=== PATIENT | male | born 1960 | race American Indian/Alaskan Native ===

== ENCOUNTER 2017-07-22 16:11 | Emergency (ER) | payer OTHER ==
[~2017-07-22] VITALS: Ht 170.2 cm; Wt 77.1 kg
[~2017-07-22 16:11] MED LIST: ATIVAN1 MG PO
[2017-07-22] MEDS ORDERED: LIPITOR20 MG PO (16:42)
[2017-07-22] MEDS ORDERED: AMBIEN5 MG PO (16:42)
[2017-07-22] MEDS ORDERED: KEPPRA500 MG PO (16:42)
[2017-07-22] MEDS ORDERED: NORCO 5-325 TA1 EACH PO (16:44)
[2017-07-22] MEDS ORDERED: ZYPREXA10 M1 IM (18:10)
[2017-07-22] MEDS ORDERED: AUGMENTIN 875-1 EACH PO (19:28)
[2017-08-17] MEDS ORDERED: LEVETIRACETAM500 MG PO (10:48)
== END 2017-07-22 19:40 | disposition home or self-care (01) ==
LOC: ED 16:11
DX: R51 Headache (principal); J06.9 Acute upper respiratory infection, unspecified; F17.200 Nicotine dependence, unspecified, uncomplicated; Z79.899 Other long term (current) drug therapy
CPT/HCPCS: 71045; 80053; 81001; 83605; 85025; 87040; 99283

== ENCOUNTER → 2017-07-24 | Emergency (ER) | payer OTHER ==
[~2017-07-24] VITALS: Ht 170.2 cm; Wt 77.1 kg
[~2017-07-24] MED LIST changes: +AMBIEN5 MG PO; +AUGMENTIN 875-1 EACH PO; +CEPHALEXIN500 MG PO; +KEPPRA500 MG PO; +LEVAQUIN750 MG PO; +LEVETIRACETAM500 MG PO; +LIPITOR20 MG PO; +NORCO 5-325 TA1 EACH PO; +ZYPREXA10 M1 IM
== END ==
LOC: ED 10:06
DX: Z09 Encounter for follow-up examination after completed treatment for conditions other than malignant neoplasm (principal); F17.200 Nicotine dependence, unspecified, uncomplicated; Z79.2 Long term (current) use of antibiotics; Z79.899 Other long term (current) drug therapy
CPT/HCPCS: 99282

== ENCOUNTER 2017-08-09 18:37 | Emergency (ER) | payer OTHER ==
[~2017-08-09] VITALS: Ht 170.2 cm; Wt 77.1 kg
[~2017-08-09 18:37] MED LIST changes: -CEPHALEXIN500 MG PO; -LEVAQUIN750 MG PO; -LEVETIRACETAM500 MG PO
--- NOTE | 2017-08-09 22:51 | EKG ---
[facility] [address] [place] [address] Signed Sinus bradycardia Right bundle branch block Abnormal ECG When compared with ECG of 06-SEP-2016 09:51, Nonspecific T wave abnormality, improved in Inferior leads T wave inversion no longer evident in Lateral leads Confirmed by HAWK CREWS MD ([id number]) on 08/09/2017 10:51:10 PM Electronically Signed By: HAWK CREWS MD 08/09/17 2251 PATIENT NAME: ARTEMIO GREEN Electrocardiogram DATE OF : 64 PHYSICIAN: HAWK CREWS MD REPORT #: [id number] REPORT IS CONFIDENTIAL AND NOT TO BE RELEASED WITHOUT AUTHORIZATION
[2017-08-17] MEDS ORDERED: LEVETIRACETAM500 MG PO (10:48)
== END 2017-08-09 21:40 | disposition short-term general hospital (02) ==
LOC: ED 18:37
DX: G97.82 Other postprocedural complications and disorders of nervous system (principal); G40.909 Epilepsy, unspecified, not intractable, without status epilepticus; F17.200 Nicotine dependence, unspecified, uncomplicated; Z79.899 Other long term (current) drug therapy
CPT/HCPCS: 70450; 71045; 80053; 81001; 85025; 85610; 85730; 93005; 93010; 99285; G0480

== ENCOUNTER 2017-08-17 10:27 | Emergency (ER) | payer OTHER ==
[~2017-08-17] VITALS: Ht 170.2 cm; Wt 81.7 kg
[2017-08-17] MEDS ORDERED: LEVETIRACETAM500 MG PO ×2 (10:48)
[2017-08-17] MEDS ORDERED: CEPHALEXIN500 MG PO (23:13)
[2017-08-17] MEDS ORDERED: LEVAQUIN750 MG PO (23:13)
== END 2017-08-17 11:56 | disposition home or self-care (01) ==
LOC: ED 10:27
DX: R51 Headache (principal); F17.200 Nicotine dependence, unspecified, uncomplicated; Z98.890 Other specified postprocedural states; Z59.0 Homelessness; Z79.899 Other long term (current) drug therapy
CPT/HCPCS: 70450; 99284

== ENCOUNTER 2017-08-17 20:40 | Emergency (ER) | payer OTHER ==
[~2017-08-17] VITALS: Ht 170.2 cm; Wt 81.7 kg
[~2017-08-17 20:40] MED LIST changes: +LEVETIRACETAM500 MG PO
[2017-08-17] MEDS ORDERED: LEVAQUIN750 MG PO (23:13)
[2017-08-17] MEDS ORDERED: CEPHALEXIN500 MG PO (23:13)
== END 2017-08-17 23:57 | disposition home or self-care (01) ==
LOC: ED 20:40
DX: T81.4XXA Infection following a procedure, initial encounter (principal); F17.200 Nicotine dependence, unspecified, uncomplicated; Z79.899 Other long term (current) drug therapy; Z98.890 Other specified postprocedural states
CPT/HCPCS: 70450; 80053; 85025; 87070; 87077; 87186; 96374; 99284; J2060

== ENCOUNTER 2017-08-21 11:11 | Emergency (ER) | payer OTHER ==
[~2017-08-21] VITALS: Ht 170.2 cm; Wt 81.7 kg
[~2017-08-21 11:11] MED LIST changes: +CEPHALEXIN500 MG PO; +LEVAQUIN750 MG PO
== END 2017-08-21 11:45 | disposition home or self-care (01) ==
LOC: ED 11:11
DX: R51 Headache (principal); G89.29 Other chronic pain; W18.30XA Fall on same level, unspecified, initial encounter; F17.200 Nicotine dependence, unspecified, uncomplicated; Z79.2 Long term (current) use of antibiotics; Z79.899 Other long term (current) drug therapy
CPT/HCPCS: 99283

== ENCOUNTER 2017-08-31 13:37 | Emergency (ER) | payer OTHER | END 2017-08-31 15:48 | disposition short-term general hospital (02) | LOC: ED 13:37 | DX: S12.500A Unspecified displaced fracture of sixth cervical vertebra, initial encounter for closed fracture (principal); S12.600A Unspecified displaced fracture of seventh cervical vertebra, initial encounter for closed fracture; S22.019A Unspecified fracture of first thoracic vertebra, initial encounter for closed fracture; S22.029A Unspecified fracture of second thoracic vertebra, initial encounter for closed fracture; S42.202A Unspecified fracture of upper end of left humerus, initial encounter for closed fracture; S22.43XA Multiple fractures of ribs, bilateral, initial encounter for closed fracture; R09.02 Hypoxemia; F17.200 Nicotine dependence, unspecified, uncomplicated; Z79.899 Other long term (current) drug therapy; V03.90XA Pedestrian on foot injured in collision with car, pick-up truck or van, unspecified whether traffic or nontraffic accident, initial encounter | CPT/HCPCS: 31500; 31720; 70450; 71045; 72125; 72170; 73030; 80053; 82150; 82550; 82803; 83690; 85025; 86850; 86900; 86901; 90471; 90715; 94002; 96361; 96374; 96375; 96376; 99291; G0390; G0480; J2250; J2405; J2704; J3010; J3411; J7030; J7120 ==

== ENCOUNTER 2017-12-10 16:46 | Emergency (ER) | payer OTHER ==
[~2017-12-10] VITALS: Ht 172.7 cm; Wt 63.5 kg
--- OUTSIDE RECORDS SUMMARY | ~2017-12-10 | XMS | Encounter Summary ---
Demographics + + + | Address | [address] | | | [place] [address] | + + + | Home Phone [...] + | Author | [facility] [employer] [facility] | + + + | Organization | [facility] [employer] [facility] | + + + | Address | Unknown | + + + | Phone | Unavailable | + + + Support + + +---------+ + | Name | Relationship | Address | Phone | + + +---------+ + | Kaylie Baig | ECON | Unknown | | + + +---------+ + Care Team Providers + +------+ + | Care Truck Safety Inspector Name | Role | Phone | + +------+ + | No Pcp Per Patient | PCP | Unavailable | + +------+ + Encounter Details +--------+ + + + + | Date | Type | Department | Care Team | Description | +--------+ + + + + | 10/10/ | Procedure | 6A Intra Op [facility] | | | | 2018 | Pass | [facility] | | | | | | Admitting Desk | | | | | | Located on the 9th | | | | | | floor [address] | | | | | | [facility] | | | | | | [place], [place] | | | | | | [address] | | | +--------+ + + + [...] on file | | + + + as of this encounter Functional Status + [...] | | | + + + + as of this encounter Plan of Treatment Not on fileas of this encounter Visit Diagnoses Not on filein this encounter"
--- OUTSIDE RECORDS SUMMARY | ~2017-12-10 | XMS | Encounter Summary ---
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 evidence of leakage from scalp wound. PLAN: We will continue to follow wound. Nylon to be removed on 10/09. Dallin Bourgeois MD Neurosurgery PGY1 | Pager #[phone] Christian Kelley PA-C - 09/27/2017 7:31 AM PDTFormatting of this note may be different from the original. Trauma Acute Care - Progress Note Name: BERLIN TEMPLE HPI: Berlin Temple is a67 y.o. male with active [...] able to have a linear conversation briefly SOFTWARE APPLICATIONS ARCHITECT requesting repeat barium swallow Current meds: I [...] incision healing , suture c/d/I Neck: in EXECUTIVE CHAIRMAN OF THE BOARD Respiratory: unlabored on room air, lungs symmetrical, [...] AMS & delirium - numerous evaluations by SOFTWARE APPLICATIONS ARCHITECT with trials of PO - now s/p [...] . - C-collar at all times, use EXECUTIVE CHAIRMAN OF THE BOARD when OOB - Follow-up with Neurosurgery on 10/21 with repeat X-rays #Blunt abdominal trauma #Splenic laceration S/p laparotomies x2. Fascia closed 09/02 Wound vac removed by patient, but wound remains duke n/dry/intact. Berthoud removed 09/17. #Left hemothorax Chest tube placed [...] & folate started 09/21 Disposition: Continue acute rivers care, will discuss with CM admin for [...] agree with the ASHLEY assessment and plan. Magdaleno rosurgery continues to require nonoperative management. No change in current regimen per psy ch. Dysphagia remains a major issue. Will cotinue TPN for now. EM CUNNINGHAM MD [facility] [address] [place] [address] Christian Kelley PA-C - 09/26/2017 6:48 AM PDTFormatting of this note may be different from the original. Trauma Acute Care - Progress Note Name: BERLIN TEMPLE HPI: Berlin Temple is a67 y.o. male with active [...] posterior scalp crani incision c/d/I Neck: in [place] collar Respiratory: unlabored on room air CV: [...] AMS & delirium - numerous evaluations by SOFTWARE APPLICATIONS ARCHITECT with trials of PO - now s/p [...] . - C-collar at all times, use EXECUTIVE CHAIRMAN OF THE BOARD when OOB - Follow-up with Neurosurgery on 10/21 with repeat X-rays #Blunt abdominal trauma #Splenic laceration S/p laparotomies x2. Fascia closed 09/02 Wound vac removed by patient, but wound remains duke n/dry/intact. Berthoud removed 09/17. #Left hemothorax Chest tube placed [...] & folate started 09/21 Disposition: Continue acute [facility] care DIANNA DYERC Associated attestation - Em Cunningham [...] Continue NPO and TPN. EM CUNNINGHAM MD [facility] [address] [place] [address] Christian Kelley PA-C - 09/25/2017 7:49 AM PDTFormatting of this note may be different from the original. Trauma Acute Care - Progress Note Name: BERLIN TEMPLE HPI: Berlin Temple is a67 y.o. male with active [...] Refreshable Recent Labs 09/23/17 0404 09/24/17 0630 05/30/18 0536 NA 140 142 141 K 3.6 [...] HEENT: EOMs intact to exam Neck: in EXECUTIVE CHAIRMAN OF THE BOARD brace Respiratory: unlabored on room air CV: [...] AMS & delirium - numerous evaluations by SOFTWARE APPLICATIONS ARCHITECT with trials of PO - now s/p [...] . - C-collar at all times, use EXECUTIVE CHAIRMAN OF THE BOARD when OOB - Follow-up with Neurosurgery on [...] & folate started 09/21 Disposition: continue acute [facility] care, continue IV abx, continue delirium management CAITIE DYER-C Associated attestation - Em Cunningham MD - [...] LFTS wnl. Continue TPN. EM CUNNINGHAM MD [facility] [address] [place] [address] Christian Kelley PA-C - 09/24/2017 11:07 AM PDTFormatting of this note may be different from the original. Trauma Acute Care - Progress Note Name: BERLIN TEMPLE HPI: Berlin Temple is a67 y.o. male with active [...] with agitation Having difficulty swallowing again - SOFTWARE APPLICATIONS ARCHITECT to re-eval and obtain barium swallow Current [...] HEENT: EOMs intact to exam Neck: in EXECUTIVE CHAIRMAN OF THE BOARD brace Respiratory: CTA bilaterally, lungs symmetrical, equal chest wall rise, no retractions CV: RRR GI: non distended, last BM 09/23 : good urine output Extremities: SCD's in place, no peripheral edema, wiggles toes and toes pink and well perfu sed Musculoskeletal: 5/5 strength in bilateral utility repairer (but with slightly weaker on left) , [...] PRN seroquel dose QHS for insomnia/restlessness at [facility] - Haldol 5mg q12hr prn for severe [...] likely 2/2 AMS & delirium - Failed SOFTWARE APPLICATIONS ARCHITECT eval 09/19 & 09/20, made NPO & dobhoff reinserted 09/21 but pulled overnight - Per SOFTWARE APPLICATIONS ARCHITECT on 09/21, ok for therapeutic pureed with [...] . - C-collar at all times, use EXECUTIVE CHAIRMAN OF THE BOARD when OOB - Follow-up with Neurosurgery on [...] & folate started 09/21 Disposition: continue acute [facility] care, continue TPN, barium swallow pending CHRISTIAN [...] Start abx for dehiscence. EM CUNNINGHAM MD [facility] [address] [place] [address] Ginette Campos PA-C - 09/24/2017 9:31 AM PDTFormatting of this note may be different from the original. Neurosurgery Progress Note Hospital Day:24 Author; Ginette Campos PA-C Attending Physician: Chaz Munoz MD Interval Hx: - No acute events [...] 4 extremities Unable to assess drift. Motor: Advertising Photographer Bicep Tricep Delt R 5 5 5 5 L 4 4 4- 4- RLE moving spontaneously, unable to complete motor exam with LLE due to patient somnolence. Incision: Cranial: Clean, some serosanguinous drainage surrounding incision but none readil y expressed with palpation. No purulent drainage. Stable erythema. Impression: Berlin Temple is a 67 y.o. male history [...] further questions or concerns. Ginette Campos PA-C [facility] [address] [place] [address] Pg [phone] Sherine Sarmiento, [facility] - 09/23/2017 6:32 AM PDTFormatting of this note may be dif ferent from the original. Trauma Acute Care - Progress Note Name: BERLIN TEMPLE HPI: Berlin Temple is a67 y.o. male with active [...] hiscence, draining minimal serosang fluid Neck: in EXECUTIVE CHAIRMAN OF THE BOARD brace Respiratory: unlabored on room air CV: [...] PRN seroquel dose QHS for insomnia/restlessness at [facility] - Repeat ECG 09/22 with QTc WNL. [...] likely 2/2 AMS & delirium - Failed SOFTWARE APPLICATIONS ARCHITECT eval 09/19 & 09/20, made NPO & dobhoff reinserted 09/21 but pulled overnight - Per SOFTWARE APPLICATIONS ARCHITECT on 09/21, ok for therapeutic pureed with [...] . - C-collar at all times, use EXECUTIVE CHAIRMAN OF THE BOARD when OOB - Follow-up with Neurosurgery on [...] < 140. - Labetalol/hydralazine prn Disposition:Continue acute [facility] care. CT head stable as of yesterday, NPO for possible OR for crani incision washout after dehiscence. Will need SNF placement when dysphagia & delir ium improves Sherine Sarmiento, [facility] [place] [phone] Dallin Bourgeois MD - 09/22/2017 8:03 AM PDTFormatting of this note may be different from the original. [facility]UROSURG[facility] PROGRESS NOTE 09/22/2017 | Hospital Day #: 22 | Attending: Chaz Munoz MD SUBJECTIVE/INTERVAL EVENTS: - Re-contacted last night [...] [address] ASSESSMENT: Berlin Temple is a 67 y.o. male history [...] Dallin Bourgeois MD Neurosurgery PGY1 | Pager #[phone] Sherine Sarmiento, AGACN - 09/22/2017 6:52 AM PDTFormatting of this note may be dif ferent from the original. Trauma Acute Care - Progress Note Name: BERLIN TEMPLE HPI: Berlin Temple is a67 y.o. male with active [...] 24hr events: - Therapeutic purees initiated by SOFTWARE APPLICATIONS ARCHITECT yesterday - Trickle feeds via Dobbhoff, pt pulled Dobbhoff yesterday evening- not replaced - CORRECTIONAL OFFICER SERGEANT called around 0 for new left facial droop (see separate notes), CT revealed increa se in SDH from 12 to 17mm with no change in midline shift. [facility] - NSG and stroke team notified [...] Recent Labs 09/20/17 0532 09/21/17 0550 09/21/17 2201 09/22/17 0548 NA 139 139 -- 140 K 4.2 3.8 -- 3.7 CL 106 106 -- 108 BICARB 27 25 -- 27 BUN 18 24* -- 20 EGFRAFRICAN >60 >60 -- >60 CR 0.43* 0.43* -- 0.41* GLU 100* 140* 106* 141* CA 8.5* 8.3* -- 8.2* MG 2.2 2.1 -- 1.9 PO4 3.5 3.9 -- 3.4 Imaging: Ct Head Wo Contrast Result Date: 09/22/2017 2200 FINDINGS: BRAIN: Extra-axial fluid underlying the right [...] sluggish. Slight left facial droop Neck: in [place] collar Respiratory: unlabored on room air CV: [...] PRN seroquel dose QHS for insomnia/restlessness at [facility]- - Repeat ECG 09/22 with Q Tc WNL. - Haldol 5mg q12hr prn for severe agitation #Substance abuse, concern for Alcohol withdrawal - CIWA discontinued 09/08, not scoring. - Thiamine & folate started 09/21 #Dysphagia, risk for aspiration #Protein calorie malnutirtion - likely 2/2 AMS & delirium - Failed SOFTWARE APPLICATIONS ARCHITECT eval 09/19 & 09/20, made NPO & dobhoff reinserted 09/21 but pulled overnight - Per SOFTWARE APPLICATIONS ARCHITECT on 09/21, ok for therapeutic pureed with [...] . - C-collar at all times, use EXECUTIVE CHAIRMAN OF THE BOARD when OOB - Follow-up with Neurosurgery on [...] < 140. - Labetalol/hydralazine prn Disposition:Continue acute [facility]. Follow up CT pending, NSG continues to follow. Allo wing 48 hr break from dobhoff as this seems to significantly worsen delirium. Will need SNF placement when dysphagia & delirium improves Sherine Sarmiento, [facility] [place] [phone] Associated attestation - Shiva Nieto MD,MPH - 09/22/2017 9:39 PM PDTATTENDING PROGRES S NOTE I personally interviewed and examined the patient today with the trauma team and the nurse practitioner. I participated in the development of and agree with the assessment and plan a s outlined in ACNJohn Sarmiento's note. Adding seroquel qHS for sleep hygiene. Shiva Nieto MD, MPH Trauma, Critical Care & Acute Care Surgery [facility] [phone] Sami Black - 09/21/2017 10:25 PM PDTBrief [...] face was noted to be symmetric. Assessment: Berlin Temple is a 67 y.o. male history [...] in the morning. Plan: -neuro checks; page [phone] for any decline in neurological examination -pain control -Hard C collar at all times and place EXECUTIVE CHAIRMAN OF THE BOARD prior to mobilizing OOB. Anticipated duration of Collar/EXECUTIVE CHAIRMAN OF THE BOARD is 12 weeks -repeat CT head for any new decline in neurological exam and page [phone] -NPO at midnight tonight -please hold tonight's planned dose of Lovenox -further recommendations in the morning Sami Black MD, PhD PGY-3 Resident Neurosurgery [id number] estrella AGACNP - 09/21/2017 7:10 AM PDTFormatting of this note may be different from the original. Trauma Acute Care - Progress Note Name: BERLIN TEMPLE HPI: Berlni Temple is a67 y.o. male with active [...] Provena placem ent 24hr events: - Failed SOFTWARE APPLICATIONS ARCHITECT eval again yest morning, continued NPO - Pt pulled 2 dobhoff tubes yesterday, now with mitt restraints - TF not started yesterday due to intermittent access, will start trickle feeds this scarlett g - Psych consulted for persistent delirium and [...] reactive. Dobbhoff tube in place Neck: in [place] collar Respiratory: unlabored on room air CV: [...] likely 2/2 AMS & delirium - Failed SOFTWARE APPLICATIONS ARCHITECT eval 09/19 & 09/20, made NPO & dobhoff reinserted yesterday - Trickle feeds started this am at 20ml/hr, increase very slowly by 10ml every 12 hrs to go al of 75 due to hx of mesenteric hematomas and previous inability to tolerate TF - Per SOFTWARE APPLICATIONS ARCHITECT today, ok for therapeutic pureed with nectar [...] . - C-collar at all times, use EXECUTIVE CHAIRMAN OF THE BOARD when OOB - Follow-up with Neurosurgery on 10/21 with repeat X-rays #Blunt abdominal trauma #Splenic laceration S/p laparotomies x2. Fascia closed 09/02 Wound vac removed by patient, but wound remains duke n/dry/intact. Berthoud removed 09/17. #Left hemothorax Chest tube placed [...] < 160. - Labetalol/hydralazine prn Disposition:Continue acute [facility]. Will need SNF placement when dysphagia & [place] [phone] Associated attestation - Fidelina Shields MD - 09/21/2017 9:36 PM PDTAttending: I saw and examined Berlin Temple ([id number]) with KESHAWN Alexander on mornin g rounds [...] enough to re-trial PO. Fidelina Shields MD Wireless Development Manager Division of Trauma, Critical Care and Acute Care Surgery Office: [phone] Pager: [phone] Sherine Sarmiento AGACNP - 09/20/2017 7:41 AM PDTFormatting of this note may be dif ferent from the original. Trauma Acute Care - Progress Note Name: BERLIN TEMPLE HPI: Berlin Temple is a67 y.o. male with active [...] haldol given yesterday afternoon for agitation - SOFTWARE APPLICATIONS ARCHITECT paged to re-eval in afternoon after concern for aspiration, made NPO by SOFTWARE APPLICATIONS ARCHITECT - DARNELL SOLANO Current meds: I have [...] right pupil 3 and reactive Neck: in [place] collar Respiratory: unlabored on room air CV: [...] thick/pureed d iet. Made NPO yesterday by SOFTWARE APPLICATIONS ARCHITECT after concern for aspiration. This is likely 2/2 waxing & wan ing delirium & AMS - SOFTWARE APPLICATIONS ARCHITECT re-eval today recommend continue NPO d/t overt clinical signs of aspiration - Place Dobbhoff tube and restart feeds, slowly progress to goal - Stop TPN when tolerating tube feeds - SOFTWARE APPLICATIONS ARCHITECT will follow closely, as his AMS improves [...] . - C-collar at all times, use EXECUTIVE CHAIRMAN OF THE BOARD when OOB - Follow-up with Neurosurgery on [...] < 160. - Labetalol/hydralazine prn Disposition:Continue [facility]. Will need SNF placement when dysphagia & [place] [phone] Associated attestation - Fidelina Shields MD - 09/20/2017 9:34 PM PDTAttending: I saw and examined Berlin Temple ([id number]) [facility]HAWN [facility]17 and agree with the [...] dispo planning when able. Fidelina Shields MD Wireless Development Manager Division of Trauma, Critical Care and Acute Care Surgery Office: [phone] Pager: [phone] Mary Medrano MD,MPH - 09/19/2017 6:22 AM PDTTrauma Acute Care - Progress Note Name: BERLIN TEMPLE HPI: Berlin Temple is a67 y.o. male with active [...] downgraded from thin to thick liquids by SOFTWARE APPLICATIONS ARCHITECT Current meds: I have independently reviewed current [...] intact, small Right fluctuant pseudomeningocele Neck: in [place] collar Respiratory: unlabored on room air CV: [...] DHT on09/19. - Cleared for diet by SOFTWARE APPLICATIONS ARCHITECT, tolerating purees, 749 Calories yesterday - Restart Calorie count: if taking >700 again will be OK for full po diet, otherwise replac e DHT and restart TF - Stop TPN tomorrow regardless - Still considering repeat CT abdomen/pelvis #Dysphagia DHTreplaced overnight 09/07. TF held due to emesis and possible ileus, aspiration risk. DH T pulled overnight on 09/18 - SOFTWARE APPLICATIONS ARCHITECT as able Resolved or chronic issues/Plan: #BIG 3 TBI #Right synthetic cranioplasty Neurosurgery consulted. Non-operative management. Last head CT 09/12 stable. Expected pseudo meningocele. Left-sided deficits consistent with baseline. - Stat head CT for any neurologic decline #C7 bilateral lamina fractures #C6-T2 spinous process fractures Neurosurgery consulted. Non-operative management. Upright cervical X-rays completed on 09/14 . - C-collar at all times, use EXECUTIVE CHAIRMAN OF THE BOARD when OOB - Follow-up with Neurosurgery on [...] < 160. - Labetalol/hydralazine prn Disposition:Continue acute [facility]. Will need SNF. Mary Medrano M.D., M.P.H. Neurological Surgery Resident PGY-1 Pager: [phone] Associated attestation - Fidelina Shields MD - 09/19/2017 1:36 PM PDTAttending: I saw and examined Berlin Temple ([id number]) with the residents on morning rounds 09/19/17 and agree with the assessment and plan as outlined in this note and participated in the plan aashish of care. Improving po intake, will titrate TPN. Plan to DC TPN tomorrow and transition to PO vs PO + TF depending on calorie counts. Once of restraints will begin looking for placement. Fidelina Shields MD Wireless Development Manager Division of Trauma, Critical Care and Acute Care Surgery Office: [phone] Pager: [phone] Mary Medrano MD,MPH - 09/18/2017 6:17 AM PDTTrauma Acute Care - Progress Note Name: BERLIN TEMPLE HPI: Berlin Temple is a67 y.o. male with active [...] fluctuant pseudomeningocele,Dobhoff tubein p lace Neck: in [place] collar Respiratory: unlabored on room air CV: [...] holding TF - Cleared for diet by SOFTWARE APPLICATIONS ARCHITECT, tolerating small quantities of purees - Will need repeat CT A/P within 1-2 days #Hypervolemia I&O approaching even. Appears to have been auto-diuresing. - Continue to monitor urine output - Monitor electrolytes, replete prn #Dysphagia DHTreplaced overnight 09/07. TF held due to emesis and possible ileus, aspiration risk. - SOFTWARE APPLICATIONS ARCHITECT as able #C7 bilateral lamina fractures #C6-T2 spinous process fractures Neurosurgery consulted. Non-operative management. Upright cervical X-rays completed on 09/14 . - C-collar at all times, use EXECUTIVE CHAIRMAN OF THE BOARD when OOB - Follow-up with Neurosurgery on [...] by patient, but wound remains duke n/dry/intact. Berthoud removed 09/17. #Left hemothorax Chest tube placed [...] < 160. - Labetalol/hydralazine prn Disposition:Continue [facility]. Disposition depends on resolution of ileus and subs equent rehab recs. Likely to require placement. Mary Medrano M.D., M.P.H. Neurological Surgery Resident PGY-1 Pager: [phone] Associated attestation - Fidelina Shields MD - 09/19/2017 3:58 PM PDTAttending: I saw and examined Berlin Temple ([id number]) with the residents on morning rounds 09/18/17 and agree with the assessment and plan as outlined in this note and participated in the plan aashish of care. Fidelina Shields MD Wireless Development Manager Division of Trauma, Critical Care and Acute Care Surgery Office: [phone] Pager: [phone] Mary Medrano MD,MPH - 09/17/2017 6:26 AM PDTTrauma Acute Care - Progress Note Name: BERLIN TEMPLE HPI: Berlin Temple is a67 y.o. male with active [...] fluctuant pseudomeningocele,Dobhoff tubein p lace Neck: in [place] collar Respiratory: unlabored on room air CV: [...] holding TF - Cleared for diet by SOFTWARE APPLICATIONS ARCHITECT, tolerating small quantities of purees #Hypervolemia I&O approaching even. Appears to have been auto-diuresing. - Continue to monitor urine output - Monitor electrolytes, replete prn #Dysphagia DHTreplaced overnight 09/07. TF held due to emesis and possible ileus, aspiration risk. - SOFTWARE APPLICATIONS ARCHITECT as able #C7 bilateral lamina fractures #C6-T2 spinous process fractures Neurosurgery consulted. Non-operative management. Upright cervical X-rays completed on 09/14 . - C-collar at all times, use EXECUTIVE CHAIRMAN OF THE BOARD when OOB - Follow-up with Neurosurgery on [...] < 160. - Labetalol/hydralazine prn Disposition:Continue [facility]. Disposition depends on resolution of ileus and subs equent rehab recs. Likely to require placement. Mary Medrano M.D., M.P.H. Neurological Surgery Resident PGY-1 Pager: [phone] Associated attestation - Fidelina Shields MD - 09/17/2017 2:29 PM PDTAttending: I saw and examined Berlin Temple ([id number]) with the residents on morning rounds 09/17/17 [...] repeat C T abdomen/pelvis. Fidelina Shields MD Wireless Development Manager Division of Trauma, Critical Care and Acute Care Surgery Office: [phone] Pager: [phone] Venita Pruitt PA-C - 09/16/2017 6:45 AM PDTFormatting of this note may be different from the original. Trauma Acute Care - Progress Note Name: BERLIN TEMPLE HPI: Berlin Temple is a67 y.o. male with active [...] results) Recent Labs 09/13/17 0634 09/14/17 0522 05/20/18 0602 WBC 12.70* 10.78 10.85* HB 11.5* [...] HEENT: DHT in place, CARRI Neck: in [place] collar Respiratory: CTA bilaterally, lungs symmetrical, equal [...] daily - Haldol 5mg q12hr prn - SOFTWARE APPLICATIONS ARCHITECT: severe cognitive deficits - continue SOFTWARE APPLICATIONS ARCHITECT therapy #Bilious emesis #Ileus #Aspiration #Leukocytosis - bilious emesis overnight, trickle tube feeds stopped; will restart tube feeds slowly this afternoon and determine tolerance - hx of ileus during hospitalization, NG removed 09/14 - Strict NPO per SOFTWARE APPLICATIONS ARCHITECT - Bowel meds via DHT - TPN continued #Hypervolemia I&O approaching even. Appears to have been auto-diuresing. - Continue to monitor urine output - Monitor electrolytes, replete prn #Dysphagia DHTreplaced overnight 09/07/17. TF held for bilious vomiting last night - SOFTWARE APPLICATIONS ARCHITECT as able - eval from 09/13 with oropharyngeal dysphagia - strict NPO #C7 bilateral lamina fractures #C6-T2 spinous process fractures Neurosurgery consulted. Non-operative management. - C-collar at all times, use EXECUTIVE CHAIRMAN OF THE BOARD when OOB - Upright films in EXECUTIVE CHAIRMAN OF THE BOARD completed yesterday - follow up in 6 [...] < 160. - Labetalol/hydralazine prn Disposition:Continue acute rivers care, will restart trickle tube feeds this afternoon, lizabeth nue TPN, will need eventual placement. Venita Pruitt PA-[place] [phone] [place] [phone] [facility] & [address] [place] [facility] [phone] Associated attestation - Fidelina Shields MD - 09/17/2017 3:42 PM PDTAttending: I saw and examined Berlin Temple with Venita Pruitt PA-C on morning rounds 09/16/17 and ag ree with the assessment and plan as outlined in this note and participated in the planning o f care. Ileus precludes advancing tube feeds. Will allow po as tolerated and continue tpn. Fidelina Shields MD Wireless Development Manager Division of Trauma, Critical Care and Acute Care Surgery Office: [phone] Pager: [phone] Dallin Bourgeois MD - 09/15/2017 12:06 PM [...] us in the care of Mr. Temple. Dallni Bourgeois MD Neurosurgery PGY1 [id number] tang PA-C - 09/15/2017 9:12 AM PDTFormatting of this note may be different from the original. Trauma Acute Care - Progress Note Name: BERLIN TEMPLE HPI: Berlin Temple is a67 y.o. male with active [...] tube in place and EOMI Neck: in [place] collar Respiratory: CTA bilaterally, lungs symmetrical, equal [...] daily - Haldol 5mg q12hr prn - SOFTWARE APPLICATIONS ARCHITECT: severe cognitive deficits - continue SOFTWARE APPLICATIONS ARCHITECT therapy #Bilious emesis #Ileus #Aspiration #Leukocytosis On [...] with resolving ileus - trickle feeds per tankage grinder recommendations started today - TPN consult obtained [...] emesis and possible ileus, aspiration risk. - SOFTWARE APPLICATIONS ARCHITECT as able - eval from 09/13 with oropharyngeal dysphagia - strict NPO #C7 bilateral lamina fractures #C6-T2 spinous process fractures Neurosurgery consulted. Non-operative management. - C-collar at all times, use EXECUTIVE CHAIRMAN OF THE BOARD when OOB - Upright films in EXECUTIVE CHAIRMAN OF THE BOARD completed yesterday - will notify NSG for [...] < 160. - Labetalol/hydralazine prn Disposition:Continue acute rivers care, will begin trickle tube feeds today and increase very slowly, start TPN as the patient has been without adequate nutrition since admission, lizabeth nue bowel regimen CAITIE DYER-C Associated attestation - Em Cunningham MD - 09/26/2017 2:30 PM PDTI was present and rou nded with the Advanced Practice Provider today. I interviewed and examined the patient. I reviewed the history, as documented today. I agree with the ASHLEY assessment and plan. Cont inuing to monitor for alcohol withdrawal and using olanzapine and haldol. SOFTWARE APPLICATIONS ARCHITECT will reeval to day. Continue strict NPO and will start TPN. Off abx. EM CUNNINGHAM MD [facility] [address] [place] [address] Mary Medrano MD,MPH - 09/14/2017 6:39 AM PDTTrauma Acute Care - Progress Note Name: BERLIN TEMPLE HPI: Berlin eTmple is a67 y.o. male with active EtOH [...] fluctuant pseudomeningocele,Dobhoff tubein p lace Neck: in [place] collar Respiratory: sats stable room air, unlabored, [...] emesis and possible ileus, aspiration risk. - SOFTWARE APPLICATIONS ARCHITECT as able #C7 bilateral lamina fractures #C6-T2 spinous process fractures Neurosurgery consulted. Non-operative management. - C-collar at all times, use EXECUTIVE CHAIRMAN OF THE BOARD when OOB - Upright films in EXECUTIVE CHAIRMAN OF THE BOARD when able Resolved or chronic issues/Plan: #BIG [...] < 160. - Labetalol/hydralazine prn Disposition:Continue acute rivers care.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 remain in ICU Discussed with Dr. Shields on TSICU rounds. Dept of Surgery SICU/TICU Contact First Call team 19/11 for questions: Team Pager [phone] Associated attestation - Fidelina Shields MD - 09/01/2017 6:55 PM PDTICU Attending: I saw and examined Berlin Temple ([id number]) with the residents on 09/01/17 and agree [...] event note this morning. Fidelina Shields MD Wireless Development Manager Division of Trauma, Critical Care and Acute Care Surgery Office: [phone] Pager: [phone] This has been electronically signed by Fidelina Shields MD, 09/01/2017 at 6:50 PM. Shiva Rollins MD - 09/01/2017 4:57 AM PDTFormatting of this note may be different f rom the original. NEUROSURGERY PROGRESS NOTE INTERVAL UPDATE: Admit yest [...] Recorded Labs: Complete Blood Count/Coags Recent Labs 08/31/17 1650 08/31/17 1731 08/31/17 1903 08/31/17 2119 09/01/17 0132 WBC 26.57* -- -- -- 11.65* HB 9.0* 9.5* -- -- 8.1* HCT 29.1* 28* 26.5* 26.6* 24.8* PLT 152 -- -- -- 78* Invalid input(s): INR CSF Results No results for input(s): WBCCSF, RBCCSF, GLUCOSECSF, PROTEINCSF in the last 8640 hours. Chemistry Recent Labs 08/31/17 1650 08/31/17 1650 08/31/17 1731 09/01/17 0133 NA -- 148* 145* 148* K [...] follows <AG BLE follows toe wiggle ASSESSMENT/PLAN: Berlin Temple is a 67 y.o. male HD#1 [...] Please contact the neurosurgery resident on-call pager [phone] with questions. Shiva White MD Neurological Surgery PGY2 Chaz Munoz MD - 08/31/2017 11:46 PM PDTTrauma Staff Spoke with Dr. Pina regarding c-spine MRI risks and benefits. Unable to communicate with patient, unable to locate family to answer questions or consent. "MRI dao goldman ust include upper thoracic spine" indicated by NSG given his injury complex and inability to address strength. Agree to proceed with MRI. Chaz Munoz MD, FACS Wireless Development Manager, Trauma, Critical Care and Acute Care Surgery in this encounter Plan of Treatment Not on fileas of this encounter Procedures + +--------+ + [...] | + +--------+ + + + | CRANIOPLASTY FOR | Electi | 11/05/2017 | M95.2 (ICD-10-CM) | | | REVISION | ve | 2:15 PM | - Other acquired | | | | Surgic | PDT | deformity of head | | | | al | | | | + +--------+ + + + +---+--------+ | | | | | Specia | | | l | | | Needs | | | ICU | | | POSTOP | | | - | | | NSICU | | | TEAM | +---+--------+ + +--------+ + + + | PERCUTANEOUS | Electi | 10/24/2017 | MISPLACED | | | ENDOSCOPIC | ve | 9:45 AM | GASTROSTOMY TUBE | | | GASTROSTOMY | Surgic | PDT | | | | | al | | | | + +--------+ + + + | ESOPHAGOGASTRODUODEN | Electi | 10/24/2017 | MISPLACED | | | OSCOPY | ve | 9:45 AM | GASTROSTOMY TUBE | | | [...] | + +--------+ + + + | GASTROSTOMY TUBE | | 10/12/2017 | Dislodged | | | PLACEMENT | | 4:15 PM | gastrostomy tube | | | | | PDT | | | + +--------+ + + + | EXPLORATORY | | 10/12/2017 | Dislodged | | | LAPAROTOMY | | 4:15 PM | gastrostomy tube | | | | | PDT | | | + +--------+ + + + | OPERATION RECORD | | 10/10/2017 | | Results for this | | | | 12:40 PM | | procedure are in the | | | | PDT | | results section. | + +--------+ + + + | CRANIOPLASTY FOR | Electi | 10/10/2017 | FAILURE TO THRIVE | | | REVISION | ve | 7:30 AM | | | | | Surgic | PDT | | | | | al | | | | + +--------+ + + + | CRANIAL WOUND | Electi | 10/10/2017 | FAILURE TO THRIVE | | | REVISION | ve | 7:30 AM | | | | | Surgic | PDT | | | | | al | | | | + +--------+ + + + | GASTROSTOMY TUBE | Electi | 10/10/2017 | FAILURE TO THRIVE | | | PLACEMENT | ve | 7:30 AM | | | | | Surgic | [...] | | | EXPLORATORY | ve | 11:30 AM | | | | | Surgic | PDT | | | | | al | | | | + +--------+ + + + | OPERATION RECORD | | 09/02/2017 | | Results for this | | | | 6:51 AM | | procedure are in the | | | | PDT | | results section. | + +--------+ + + + | ANGIO PROCEDURE | | 09/01/2017 | reboa replacement | | | | | 11:00 AM | | | | | | PDT | | | + +--------+ + + + | ABDOMINAL AORTIC | | 09/01/2017 | reboa replacement | | | ANEURYSM REPAIR | | 11:00 AM | | | | ENDOVASCULAR | | PDT | | | + +--------+ + + + in this encounter Results 12 LEAD ECG (12/05/2017 3:27 PM) + + + + | Component | Value | Ref Range | + + + + | VENTRICULAR RATE | 73 | bpm | + + + + | ATRIAL RATE | 74 | ms | + + + + | P-R INTERVAL | 130 | ms | + + + + | P AXIS | 65 | deg | + + + + | QRS DURATION | 133 | ms | + + + + | QT | 446 | ms | + + + + | QTCB | 493 | ms | + + + + | R AXIS | 86 | deg | + + + + | T AXIS | 36 | deg | + + + + | ECG IMPRESSION | Sinus rhythm | | + + + + | ECG IMPRESSION | Right bundle branch block- ABNORMAL ECG - | | + + + + | ECG IMPRESSION | Electronically signed by: AJAY DE LOS SANTOS | | | | 12-05-2017 21:34:38 | | + + + + + + + | Specimen | Performing Laboratory | + + + | | [facility] [address] [place] [address] | | | [place] [address] | + + + RENAL FUNCTION SET (NA,K,CL,CO2,BUN,CREAT,GLUC,CA,PHOS,ALB ) (12/05/2017 4:46 AM) + + + + | Component | Value | Ref Range | + + + + | GLUCOSE, PLASMA | 106 (H) | 70 - 99 mg/dL | | (LAB) | | | + + + + | BUN, PLASMA (LAB) | 10 | 6 - 20 mg/dL | + + + + | CREATININE PLASMA | 0.53 (L) | 0.70 - 1.30 mg/dL | | (LAB) | | | + + + + | EGFR - | >60 | >60 mL/min | | GABONESE | | | + + + + | EGFR NON | >60 | >60 mL/min | | -GABONESE | | | + + + + | SODIUM, PLASMA (LAB) | 140 | 136 - 145 mmol/L | + + + + | POTASSIUM, PLASMA | 4.0 | 3.4 - 5.0 mmol/L | | (LAB) | | | + + + + | CHLORIDE, PLASMA | 105 | 97 - 108 mmol/L | | (LAB) | | | + + + + | TOTAL CO2, PLASMA | 26 | 21 - 32 mmol/L | | (LAB) | | | + + + + | CALCIUM, PLASMA | 9.2 | 8.6 - 10.2 mg/dL | | (LAB) | | | + + + + | CALCIUM(ALB | 9.5 | 8.6 - 10.2 mg/dL | | CORRECTED) | | | + + + + | ALBUMIN, PLASMA | 3.6 | 3.5 - 4.7 g/dL | | (LAB) | | | + + + + | PHOSPHORUS, PLASMA | 4.4 | 2.4 - 4.7 mg/dL | | (LAB) | | | + + + + | POTASSIUM CMNT | No Hemo | | + + + + | ANION GAP | 9 | 4 - 11 mmol/L | + + + + | ANION GAP(ALB | 10 | 4 - 11 mmol/L | | CORRECTED) | | | + + + + + + + | Specimen | Performing Laboratory | + + + | Blood | [facility], [facility] | | | [place] [address] | + + + + + | Narrative | + + | GFR is estimated using the MDRD equation recommended by the National Kidney Disease | | Education Program. Estimated GFR Interpretive Information: <60 mL/min/1.73 sq | | m Chronic Kidney Disease <15 mL/min/1.73 sq | | m Kidney Failure Estimated GFR greater that 60 mL/min/1.73 | | sq m is of limited clinical value. The MDRD equation is not valid in the following | | situations: - Patients under 18 years of age - Severe malnutrition or obesity - | | Vegetarian diet - Rapidly changing kidney function - Amputees, paraplegics, or other | | muscle-wasting diseses | + + MAGNESIUM, PLASMA (12/05/2017 4:46 AM) + +-------+ + | Component | Value | Ref Range | + +-------+ + | MAGNESIUM,PLASMA | 2.2 | 1.6 - 2.6 mg/dL | + +-------+ + + + + | Specimen | Performing Laboratory | + + + | Blood | [facility]ORE [address] [facility] | | | [place] [address] | + + + + + | Narrative | + + | Reference range change effective 12/11/16. | + + 12 LEAD ECG (12/04/2017 10:25 AM) + + + + | Component | Value | Ref Range | + + + + | VENTRICULAR RATE | 68 | bpm | + + + + | ATRIAL RATE | 67 | ms | + + + + | P-R INTERVAL | 129 | ms | + + + + | P AXIS | 69 | deg | + + + + | QRS DURATION | 145 | ms | + + + + | QT | 444 | ms | + + + + | QTCB | 472 | ms | + + + + | R AXIS | 91 | deg | + + + + | T AXIS | 24 | deg | + + + + | ECG IMPRESSION | Sinus rhythm | | + + + + | ECG IMPRESSION | Right bundle branch block- ABNORMAL ECG - | | + + + + | ECG IMPRESSION | Electronically signed by: AJAY DE LOS SANTOS | | | | 12-05-2017 21:34:43 | | + + + + + + + | Specimen | Performing Laboratory | + + + | | [facility] [address] [place] [address] | | | [place] [address] | + + + LIVER SET (AST,ALT,BILI TOTAL,BILI DIRECT,ALK PHOS,ALB,PROT TOTAL) (12/04/2017 8:51 AM) + +---------+ + | Component | Value | Ref Range | + +---------+ + | ALBUMIN, PLASMA | 3.5 | 3.5 - 4.7 g/dL | | (LAB) | | | + +---------+ + | BILIRUBIN TOTAL | 0.3 | 0.3 - 1.2 mg/dL | + +---------+ + | BILIRUBIN DIRECT | <0.1 | 0.0 - 0.3 mg/dL | + +---------+ + | ALK PHOS | 205 (H) | 53 - 128 U/L | + +---------+ + | AST(SGOT) | 18 | <=41 U/L | + +---------+ + | ALT (SGPT) | 31 | <=60 U/L | + +---------+ + | TOTAL PROTEIN, | 7.6 | 6.4 - 8.2 g/dL | | PLASMA (LAB) | | | + +---------+ + | AST CMNT | No Hemo | | + +---------+ + | BILI T CMNT | No Hemo | | + +---------+ + | BILI D CMNT | No Hemo | | + +---------+ + + + + | Specimen | Performing Laboratory | + + + | Blood | [facility], [facility]ORE [address] [place] [address] | | | [place] [address] | + + + 12 LEAD ECG (12/03/2017 3:44 PM) + + + + | Component | Value | Ref Range | + + + + | VENTRICULAR RATE | 80 | bpm | + + + + | ATRIAL RATE | 80 | ms | + + + + | P-R INTERVAL | 144 | ms | + + + + | P AXIS | 58 | deg | + + + + | QRS DURATION | 125 | ms | + + + + | QT | 396 | ms | + + + + | QTCB | 457 | ms | + + + + | R AXIS | 89 | deg | + + + + | T AXIS | 21 | deg | + + + + | ECG IMPRESSION | Sinus rhythm | | + + + + | ECG IMPRESSION | Right bundle branch block- ABNORMAL ECG - | | + + + + | ECG IMPRESSION | Electronically signed by: AJAY DE LOS SANTOS | | | | 12-03-2017 16:15:11 | | + + + + + + + | Specimen | Performing Laboratory | + + + | | [facility] [address] [place] [address] | | | [place] [address] | + + + VASC LAB VENOUS DUPLEX LOWER EXTREMITY BILAT COMP (12/03/2017 11:26 AM) + + + | Specimen | Performing Laboratory | + + + | | [facility] VASC US | + + + + + | Narrative | + + | Bilateral: The duplex scanner was used to examine the deep and superficial veins of | | the right and left lower extremities. The veins are patent bilaterally with normal | | flow and responses to augmentation and compression maneuvers and no thrombus is noted. | | Conclusions: A normal venous examination of the bilateral lower extremities. No | | venous thrombosis was detected. I have personally reviewed the images and, | | if necessary, edited the report. I agree with the report as now presented. | + + + + | Procedure Note | + + | 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, Kostas Casper In Interface - 12/03/2017 4:56 PM PDT [...] report as now presented. | + + CBC (HEMOGRAM) ONLY (12/03/2017 8:02 AM) + + + + | Component | Value | Ref Range | + + + + | WHITE CELL COUNT | 9.11 | 3.50 - 10.80 K/cu mm | + + + + | RED CELL COUNT | 4.18 (L) | 4.50 - 6.00 M/cu mm | + + + + | HEMOGLOBIN | 12.0 (L) | 13.5 - 17.5 g/dL | + + + + | HEMATOCRIT | 37.9 (L) | 41.0 - 53.0 % | + + + + | MCV | 90.7 | 80.0 - 100.0 fL | + + + + | MCHC | 31.7 (L) | 32.0 - 36.0 g/dL | + + + + | RDW SD | 48.2 (H) | 35.1 - 46.3 fL | + + + + | PLATELET COUNT | 204 | 150 - 400 K/cu mm | + + + + | MPV | 9.2 (L) | 9.7 - 12.3 fL | + + + + | NRBC% | 0.0 | 0.0 - 0.3 % | + + + + | NRBC# | 0.00 | 0.00 - 0.02 K/cu mm | + + + + + + + | Specimen | Performing Laboratory | + + + | Blood | [facility], CORE [address] [facility] | | | [place] [address] | + + + + + | Narrative | + + | New reference ranges for MCV, MCHC, PLT, IG% and IG# effective 09/05/2017 | + + CBC ONLY (12/03/2017 8:02 AM) + + + | Specimen | Performing Laboratory | + + + | Blood | | + + + + + | Narrative | + + | The following orders were created for panel order CBC ONLY. | | Procedure | | Abnormality Status | | --------- | | ------ CBC (HEMOGRAM) | | ONLY[[id number]] Abnormal Final | | result Please view results for these tests on the | | individual orders. | + + X-RAY ABD TUBE OR CATH EVAL W CONTRAST (12/03/2017 12:55 AM) + + + | Specimen | Performing Laboratory | + + + | | [facility] VOICE RECOGNITION 2 | + + + + + | Narrative | + + | EXAM: ABD TUBE OR CATH EVAL W CONTRAST HISTORY: eval G tube replacement. | | COMPARISON: CT chest abdomen pelvis 11/11/2017 FINDINGS: The replaced | | percutaneous gastrostomy tube is in the expected position in the left upper quadrant. | | Contrast injection by the ordering team demonstrates filling of the gastric body without | | evidence of leak or spillage. Gas is present in several loops of the small and | | large bowels. Multiple bony fractures at various stages of healing kidney better | | visualized on CT imaging. IMPRESSION: Appropriate positioning of the replaced | | percutaneous gastrostomy tube without leak spillage during contrast injection by the | | ordering team. I have personally reviewed the images and, if necessary, edited the | | report. I agree with the report as now presented. Final signature: Edelmira Dumont | | MD Issa 12/03/2017 10:29 AM Preliminary: Mick Simms MD 12/03/2017 10:25 AM | | Dictation initiated: Mick Simms MD 12/03/2017 8:58 AM | + + + + | Procedure Note | + + | 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, [employer] In Interface - 12/03/2017 10:30 AM [...] Parsons MD 12/03/2017 10:29 AM Preliminary: Mick Simms MD | | 12/03/2017 10:25 AM Dictation initiated: Mick Simms MD 12/03/2017 8:58 AM | |IMPRESSION: | [...] MD 12/03/2017 10:29 AM | |Preliminary: Mick Simms MD 12/03/2017 10:25 AM | |Dictation initiated: Mick Simms MD 12/03/2017 8:58 AM | + + 12 LEAD ECG (12/02/2017 3:34 PM) + + + + | Component | Value | Ref Range | + + + + | VENTRICULAR RATE | 93 | bpm | + + + + | ATRIAL RATE | 93 | ms | + + + + | P-R INTERVAL | 143 | ms | + + + + | P AXIS | 58 | deg | + + + + | QRS DURATION | 124 | ms | + + + + | QT | 394 | ms | + + + + | QTCB | 491 | ms | + + + + | R AXIS | 87 | deg | + + + + | T AXIS | 24 | deg | + + + + | ECG IMPRESSION | Sinus rhythm | | + + + + | ECG IMPRESSION | Right bundle branch block | | + + + + | ECG IMPRESSION | Borderline prolonged QT interval- ABNORMAL | | | | ECG - | | + + + + | ECG IMPRESSION | Electronically signed by: CHARISJULIO | | | | 12-02-2017 18:24:27 | | + + + + + + + | Specimen | Performing Laboratory | + + + | | [facility] [address] [place] [address] | | | [place] [address] | + + + C-REACTIVE PROTEIN (12/02/2017 5:35 AM) + +-------+ + | Component | Value | Ref Range | + +-------+ + | C-REACTIVE PROTEIN | 6.6 | <10.0 mg/L | + +-------+ + + + + | Specimen | Performing Laboratory | + + + | Blood | [facility], [facility] [address] [facility] | | | [place] [address] | + + + + + | Narrative | + + | New method, new reference range and new reporting units as of 09/30/2013. | + + PREALBUMIN (12/02/2017 5:35 AM) + +-------+ + | Component | Value | Ref Range | + +-------+ + | PREALBUMIN | 24.1 | 17.0 - 42.0 mg/dL | + +-------+ + + + + | Specimen | Performing Laboratory | + + + | Blood | [facility] [place] [address] [place], [place] | | | [address] | + + + TRIGLYCERIDES, PLASMA (12/02/2017 5:35 AM) + +-------+ + | Component | Value | Ref Range | + +-------+ + | TRIGLYCERIDES | 101 | <150 mg/dL | + +-------+ + + + + | Specimen | Performing Laboratory | + + + | Blood | [facility], [facility] [address] [facility] | | | [place] [address] | + + + + + | Narrative | + + | Triglyceride Reference Range: Normal: <150 mg/dL | | Borderline High: 150-199 mg/dL High: 200-499 mg/dL | | Very High: >=500 mg/dL | + + CALCIUM, IONIZED, WHOLE BLOOD (12/02/2017 5:35 AM) + +-------+ + | Component | Value | Ref Range | + +-------+ + | MAHOGANY ICA, WHOLE BLD | 1.14 | 1.14 - 1.32 mmol/L | + +-------+ + | PH, WHOLE BLOOD | 7.43 | | + +-------+ + | ICA, CORRECTED TO PH | 1.16 | 1.14 - 1.28 mmol/L | | 7.4 | | | + +-------+ + + + + | Specimen | Performing Laboratory | + + + | Blood | [facility], [facility] [address] [facility] | | | [place] [address] | + + + LIVER SET (AST,ALT,BILI TOTAL,BILI DIRECT,ALK PHOS,ALB,PROT TOTAL) (12/02/2017 5:35 AM) + +---------+ + | Component | Value | Ref Range | + +---------+ + | ALBUMIN, PLASMA | 3.7 | 3.5 - 4.7 g/dL | | (LAB) | | | + +---------+ + | BILIRUBIN TOTAL | 0.3 | 0.3 - 1.2 mg/dL | + +---------+ + | BILIRUBIN DIRECT | 0.1 | 0.0 - 0.3 mg/dL | + +---------+ + | ALK PHOS | 210 (H) | 53 - 128 U/L | + +---------+ + | AST(SGOT) | 28 | <=41 U/L | + +---------+ + | ALT (SGPT) | 35 | <=60 U/L | + +---------+ + | TOTAL PROTEIN, | 7.8 | 6.4 - 8.2 g/dL | | PLASMA (LAB) | | | + +---------+ + | AST CMNT | No Hemo | | + +---------+ + | JULIENI T CMNT | No Hemo | | + +---------+ + | BILI D CMNT | No Hemo | | + +---------+ + + + + | Specimen | Performing Laboratory | + + + | Blood | [facility], [facility] [address] [facility] | | | [place] [address] | + + + RENAL FUNCTION SET (NA,K,CL,CO2,BUN,CREAT,GLUC,CA,PHOS,ALB ) (12/02/2017 5:35 AM) + + + + | Component | Value | Ref Range | + + + + | GLUCOSE, PLASMA | 89 | 70 - 99 mg/dL | | (LAB) | | | + + + + | BUN, PLASMA (LAB) | 12 | 6 - 20 mg/dL | + + + + | CREATININE PLASMA | 0.51 (L) | 0.70 - 1.30 mg/dL | | (LAB) | | | + + + + | EGFR - | >60 | >60 mL/min | | GABONESE | | | + + + + | EGFR NON | >60 | >60 mL/min | | -GABONESE | | | + + + + | SODIUM, PLASMA (LAB) | 140 | 136 - 145 mmol/L | + + + + | POTASSIUM, PLASMA | 4.0 | 3.4 - 5.0 mmol/L | | (LAB) | | | + + + + | CHLORIDE, PLASMA | 105 | 97 - 108 mmol/L | | (LAB) | | | + + + + | TOTAL CO2, PLASMA | 27 | 21 - 32 mmol/L | | (LAB) | | | + + + + | CALCIUM, PLASMA | 9.6 | 8.6 - 10.2 mg/dL | | (LAB) | | | + + + + | CALCIUM(ALB | 9.8 | 8.6 - 10.2 mg/dL | | CORRECTED) | | | + + + + | ALBUMIN, PLASMA | 3.7 | 3.5 - 4.7 g/dL | | (LAB) | | | + + + + | PHOSPHORUS, PLASMA | 3.9 | 2.4 - 4.7 mg/dL | | (LAB) | | | + + + + | POTASSIUM CMNT | No Hemo | | + + + + | ANION GAP | 8 | 4 - 11 mmol/L | + + + + | ANION GAP(ALB | 8 | 4 - 11 mmol/L | | CORRECTED) | | | + + + + + + + | Specimen | Performing Laboratory | + + + | Blood | [facility], [address] [facility] | | | [place] [id number] | + + + + + | Narrative | + + | GFR is estimated using the MDRD equation recommended by the National Kidney Disease | | Education Program. Estimated GFR Interpretive Information: <60 mL/min/1.73 sq | | m Chronic Kidney Disease <15 mL/min/1.73 sq | | m Kidney Failure Estimated GFR greater that 60 mL/min/1.73 | | sq m is of limited clinical value. The MDRD equation is not valid in the following | | situations: - Patients under 18 years of age - Severe malnutrition or obesity - | | Vegetarian diet - Rapidly changing kidney function - Amputees, paraplegics, or other | | muscle-wasting diseses | + + MAGNESIUM, PLASMA (12/02/2017 5:35 AM) + +-------+ + | Component | Value | Ref Range | + +-------+ + | MAGNESIUM,PLASMA | 2.1 | 1.6 - 2.6 mg/dL | + +-------+ + + + + | Specimen | Performing Laboratory | + + + | Blood | [facility], [address] | | | [place] [address] | + + + + + | Narrative | + + | Reference range change effective 12/11/16. | + + 12 LEAD ECG (11/30/2017 4:03 PM) + + + + | Component | Value | Ref Range | + + + + | VENTRICULAR RATE | 60 | bpm | + + + + | ATRIAL RATE | 60 | ms | + + + + | P-R INTERVAL | 137 | ms | + + + + | P AXIS | 52 | deg | + + + + | QRS DURATION | 125 | ms | + + + + | QT | 428 | ms | + + + + | QTCB | 428 | ms | + + + + | R AXIS | 77 | deg | + + + + | T AXIS | 31 | deg | + + + + | ECG IMPRESSION | Sinus rhythm | | + + + + | ECG IMPRESSION | Right bundle branch block- ABNORMAL ECG - | | + + + + | ECG IMPRESSION | Electronically signed by: AJAY DE LOS SANTOS | | | | 11-30-2017 20:39:16 | | + + + + + + + | Specimen | Performing Laboratory | + + + | | [facility] [address] [place] [address] | | | [place] [address] | + + + 12 LEAD ECG (11/29/2017 9:46 AM) + + + + | Component | Value | Ref Range | + + + + | VENTRICULAR RATE | 59 | bpm | + + + + | ATRIAL RATE | 59 | ms | + + + + | P-R INTERVAL | 149 | ms | + + + + | P AXIS | 0 | deg | + + + + | QRS DURATION | 125 | ms | + + + + | QT | 419 | ms | + + + + | QTCB | 414 | ms | + + + + | R AXIS | 86 | deg | + + + + | T AXIS | 27 | deg | + + + + | ECG IMPRESSION | Sinus bradycardia | | + + + + | ECG IMPRESSION | Right bundle branch block- ABNORMAL ECG - | | + + + + | ECG IMPRESSION | Electronically signed by: AJAY DE LOS SANTOS | | | | 11-29-2017 12:53:21 | | + + + + + + + | Specimen | Performing Laboratory | + + + | | [facility] [address] [place] [address] | | | [place] [address] | + + + RENAL FUNCTION SET (NA,K,CL,CO2,BUN,CREAT,GLUC,CA,PHOS,ALB ) (11/28/2017 7:07 AM) + + + + | Component | Value | Ref Range | + + + + | GLUCOSE, PLASMA | 95 | 70 - 99 mg/dL | | (LAB) | | | + + + + | BUN, PLASMA (LAB) | 12 | 6 - 20 mg/dL | + + + + | CREATININE PLASMA | 0.58 (L) | 0.70 - 1.30 mg/dL | | (LAB) | | | + + + + | EGFR - | >60 | >60 mL/min | | GABONESE | | | + + + + | EGFR NON | >60 | >60 mL/min | | -GABONESE | | | + + + + | SODIUM, PLASMA (LAB) | 143 | 136 - 145 mmol/L | + + + + | POTASSIUM, PLASMA | 4.0 | 3.4 - 5.0 mmol/L | | (LAB) | | | + + + + | CHLORIDE, PLASMA | 105 | 97 - 108 mmol/L | | (LAB) | | | + + + + | TOTAL CO2, PLASMA | 32 | 21 - 32 mmol/L | | (LAB) | | | + + + + | CALCIUM, PLASMA | 9.0 | 8.6 - 10.2 mg/dL | | (LAB) | | | + + + + | CALCIUM(ALB | 9.5 | 8.6 - 10.2 mg/dL | | CORRECTED) | | | + + + + | ALBUMIN, PLASMA | 3.4 (L) | 3.5 - 4.7 g/dL | | (LAB) | | | + + + + | PHOSPHORUS, PLASMA | 4.4 | 2.4 - 4.7 mg/dL | | (LAB) | | | + + + + | POTASSIUM CMNT | No Hemo | | + + + + | ANION GAP | 6 | 4 - 11 mmol/L | + + + + | ANION GAP(ALB | 7 | 4 - 11 mmol/L | | CORRECTED) | | | + + + + + + + | Specimen | Performing Laboratory | + + + | Blood | [facility], [address] [address] [facility] | | | [place] [address] | + + + + + | Narrative | + + | GFR is estimated using the MDRD equation recommended by the National Kidney Disease | | Education Program. Estimated GFR Interpretive Information: <60 mL/min/1.73 sq | | m Chronic Kidney Disease <15 mL/min/1.73 sq | | m Kidney Failure Estimated GFR greater that 60 mL/min/1.73 | | sq m is of limited clinical value. The MDRD equation is not valid in the following | | situations: - Patients under 18 years of age - Severe malnutrition or obesity - | | Vegetarian diet - Rapidly changing kidney function - Amputees, paraplegics, or other | | muscle-wasting diseses | + + MAGNESIUM, PLASMA (11/28/2017 7:07 AM) + +-------+ + | Component | Value | Ref Range | + +-------+ + | MAGNESIUM,PLASMA | 2.0 | 1.6 - 2.6 mg/dL | + +-------+ + + + + | Specimen | Performing Laboratory | + + + | Blood | [facility], [facility] [address] [facility] | | | [place] [address] | + + + + + | Narrative | + + | Reference range change effective 12/11/16. | + + 12 LEAD ECG (11/27/2017 11:03 AM) + + + + | Component | Value | Ref Range | + + + + | VENTRICULAR RATE | 56 | bpm | + + + + | ATRIAL RATE | 56 | ms | + + + + | P-R INTERVAL | 137 | ms | + + + + | P AXIS | 59 | deg | + + + + | QRS DURATION | 132 | ms | + + + + | QT | 449 | ms | + + + + | QTCB | 432 | ms | + + + + | R AXIS | 83 | deg | + + + + | T AXIS | 21 | deg | + + + + | ECG IMPRESSION | Sinus bradycardia | | + + + + | ECG IMPRESSION | Right bundle branch block | | + + + + | ECG IMPRESSION | Borderline ST elevation, lateral leads- | | | | ABNORMAL ECG - | | + + + + | ECG IMPRESSION | Electronically signed by: PAULO CAVAZOS | | | | 11-28-2017 16:02:53 | | + + + + + + + | Specimen | Performing Laboratory | + + + | | [facility] [address] [facility] | | | [place] [address] | + + + VASC LAB VENOUS DUPLEX LOWER EXTREMITY BILAT COMP (11/26/2017 12:16 PM) + + + | Specimen | Performing Laboratory | + + + | | [facility] | + + + + + | Narrative | + + | Bilateral: The duplex scanner was used to examine the deep and superficial veins of | | the right and left lower extremities. The veins are patent bilaterally with normal | | flow and responses to augmentation and compression maneuvers and no thrombus is noted. | | Conclusions: A normal venous examination of the bilateral lower extremities. No | | venous thrombosis was detected. I have personally reviewed the images and, | | if necessary, edited the report. I agree with the report as now presented. | + + + + | Procedure Note | + + | 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, [employer] In Interface - 11/26/2017 12:36 PM PDT [...] report as now presented. | + + PREALBUMIN (11/25/2017 5:35 AM) + +-------+ + | Component | Value | Ref Range | + +-------+ + | PREALBUMIN | 24.8 | 17.0 - 42.0 mg/dL | + +-------+ + + + + | Specimen | Performing Laboratory | + + + | Blood | [facility] [address] [place], [place] | | | [address] | + + + CALCIUM, IONIZED, WHOLE BLOOD (11/25/2017 5:35 AM) + +-------+ + | Component | Value | Ref Range | + +-------+ + | MAHOGANY ICA, WHOLE BLD | 1.15 | 1.14 - 1.32 mmol/L | + +-------+ + | PH, WHOLE BLOOD | 7.41 | | + +-------+ + | ICA, CORRECTED TO PH | 1.16 | 1.14 - 1.28 mmol/L | | 7.4 | | | + +-------+ + + + + | Specimen | Performing Laboratory | + + + | Blood | [facility], [address] [place] [address] | | | [place] [address] | + + + C-REACTIVE PROTEIN (11/25/2017 5:30 AM) + +-------+ + | Component | Value | Ref Range | + +-------+ + | C-REACTIVE PROTEIN | <2.9 | <10.0 mg/L | + +-------+ + + + + | Specimen | Performing Laboratory | + + + | Blood | [facility], [address] [address] [facility] | | | [place] [address] | + + + + + | Narrative | + + | New method, new reference range and new reporting units as of 09/30/2013. | + + TRIGLYCERIDES, PLASMA (11/25/2017 5:30 AM) + +-------+ + | Component | Value | Ref Range | + +-------+ + | TRIGLYCERIDES | 119 | <150 mg/dL | + +-------+ + + + + | Specimen | Performing Laboratory | + + + | Blood | [facility], [address] | | | [place] [address] | + + + + + | Narrative | + + | Triglyceride Reference Range: Normal: <150 mg/dL | | Borderline High: 150-199 mg/dL High: 200-499 mg/dL | | Very High: >=500 mg/dL | + + LIVER SET (AST,ALT,BILI TOTAL,BILI DIRECT,ALK PHOS,ALB,PROT TOTAL) (11/25/2017 5:30 AM) + +---------+ + | Component | Value | Ref Range | + +---------+ + | ALBUMIN, PLASMA | 3.3 (L) | 3.5 - 4.7 g/dL | | (LAB) | | | + +---------+ + | BILIRUBIN TOTAL | 0.2 (L) | 0.3 - 1.2 mg/dL | + +---------+ + | BILIRUBIN DIRECT | <0.1 | 0.0 - 0.3 mg/dL | + +---------+ + | ALK PHOS | 201 (H) | 53 - 128 U/L | + +---------+ + | AST(SGOT) | 33 | <=41 U/L | + +---------+ + | ALT (SGPT) | 40 | <=60 U/L | + +---------+ + | TOTAL PROTEIN, | 7.1 | 6.4 - 8.2 g/dL | | PLASMA (LAB) | | | + +---------+ + | AST CMNT | No Hemo | | + +---------+ + | BILI T CMNT | No Hemo | | + +---------+ + | BRET Melo CMNT | No Hemo | | + +---------+ + + + + | Specimen | Performing Laboratory | + + + | Blood | [facility], [address] [place] [address] | | | [place] [address] | + + + RENAL FUNCTION SET (NA,K,CL,CO2,BUN,CREAT,GLUC,CA,PHOS,ALB ) (11/25/2017 5:30 AM) + + + + | Component | Value | Ref Range | + + + + | GLUCOSE, PLASMA | 90 | 70 - 99 mg/dL | | (LAB) | | | + + + + | BUN, PLASMA (LAB) | 12 | 6 - 20 mg/dL | + + + + | CREATININE PLASMA | 0.55 (L) | 0.70 - 1.30 mg/dL | | (LAB) | | | + + + + | EGFR - | >60 | >60 mL/min | | GABONESE | | | + + + + | EGFR NON | >60 | >60 mL/min | | -GABONESE | | | + + + + | SODIUM, PLASMA (LAB) | 142 | 136 - 145 mmol/L | + + + + | POTASSIUM, PLASMA | 4.0 | 3.4 - 5.0 mmol/L | | (LAB) | | | + + + + | CHLORIDE, PLASMA | 105 | 97 - 108 mmol/L | | (LAB) | | | + + + + | TOTAL CO2, PLASMA | 29 | 21 - 32 mmol/L | | (LAB) | | | + + + + | CALCIUM, PLASMA | 8.9 | 8.6 - 10.2 mg/dL | | (LAB) | | | + + + + | CALCIUM(ALB | 9.5 | 8.6 - 10.2 mg/dL | | CORRECTED) | | | + + + + | ALBUMIN, PLASMA | 3.3 (L) | 3.5 - 4.7 g/dL | | (LAB) | | | + + + + | PHOSPHORUS, PLASMA | 4.8 (H) | 2.4 - 4.7 mg/dL | | (LAB) | | | + + + + | POTASSIUM CMNT | No Hemo | | + + + + | ANION GAP | 8 | 4 - 11 mmol/L | + + + + | ANION GAP(ALB | 9 | 4 - 11 mmol/L | | CORRECTED) | | | + + + + + + + | Specimen | Performing Laboratory | + + + | Blood | [facility], [address] | | | [place] [address] | + + + + + | Narrative | + + | GFR is estimated using the MDRD equation recommended by the National Kidney Disease | | Education Program. Estimated GFR Interpretive Information: <60 mL/min/1.73 sq | | m Chronic Kidney Disease <15 mL/min/1.73 sq | | m Kidney Failure Estimated GFR greater that 60 mL/min/1.73 | | sq m is of limited clinical value. The MDRD equation is not valid in the following | | situations: - Patients under 18 years of age - Severe malnutrition or obesity - | | Vegetarian diet - Rapidly changing kidney function - Amputees, paraplegics, or other | | muscle-wasting diseses | + + MAGNESIUM, PLASMA (11/25/2017 5:30 AM) + +-------+ + | Component | Value | Ref Range | + +-------+ + | MAGNESIUM,PLASMA | 2.1 | 1.6 - 2.6 mg/dL | + +-------+ + + + + | Specimen | Performing Laboratory | + + + | Blood | [facility], [address] [address] [facility] | | | [place], [place] [address] | + + + + + | Narrative | + + | Reference range change effective 8/15/17. | + + 12 LEAD ECG (11/24/2017 8:51 AM) + + + + | Component | Value | Ref Range | + + + + | VENTRICULAR RATE | 57 | bpm | + + + + | ATRIAL RATE | 57 | ms | + + + + | P-R INTERVAL | 144 | ms | + + + + | P AXIS | 47 | deg | + + + + | QRS DURATION | 126 | ms | + + + + | QT | 435 | ms | + + + + | QTCB | 423 | ms | + + + + | R AXIS | 82 | deg | + + + + | T AXIS | 28 | deg | + + + + | ECG IMPRESSION | Sinus bradycardia | | + + + + | ECG IMPRESSION | Right bundle branch block- ABNORMAL ECG - | | + + + + | ECG IMPRESSION | Electronically signed by: PAULO CAVAZOS | | | | 11-24-2017 17:16:18 | | + + + + + + + | Specimen | Performing Laboratory | + + + | | [facility] [address] [place] [address] | | | [place] [address] | + + + 12 LEAD ECG (11/23/2017 1:07 PM) + + + + | Component | Value | Ref Range | + + + + | VENTRICULAR RATE | 64 | bpm | + + + + | ATRIAL RATE | 64 | ms | + + + + | P-R INTERVAL | 144 | ms | + + + + | P AXIS | 78 | deg | + + + + | QRS DURATION | 126 | ms | + + + + | QT | 415 | ms | + + + + | QTCB | 429 | ms | + + + + | R AXIS | 91 | deg | + + + + | T AXIS | 35 | deg | + + + + | ECG IMPRESSION | Sinus rhythm | | + + + + | ECG IMPRESSION | Right bundle branch block | | + + + + | ECG IMPRESSION | ST elevation suggests acute pericarditis- | | | | ABNORMAL ECG - | | + + + + | ECG IMPRESSION | Electronically signed by: PAULO CAVAZOS | | | | 11-24-2017 17:16:36 | | + + + + + + + | Specimen | Performing Laboratory | + + + | | [facility] [address] [facility] | | | [place] [address] | + + + 12 LEAD ECG (11/22/2017 8:51 AM) + + + + | Component | Value | Ref Range | + + + + | VENTRICULAR RATE | 66 | bpm | + + + + | ATRIAL RATE | 66 | ms | + + + + | P-R INTERVAL | 148 | ms | + + + + | P AXIS | 13 | deg | + + + + | QRS DURATION | 122 | ms | + + + + | QT | 410 | ms | + + + + | QTCB | 430 | ms | + + + + | R AXIS | 74 | deg | + + + + | T AXIS | 34 | deg | + + + + | ECG IMPRESSION | Sinus rhythm | | + + + + | ECG IMPRESSION | Right bundle branch block- ABNORMAL ECG - | | + + + + | ECG IMPRESSION | Electronically signed by: PAULO CAVAZOS | | | | 11-23-2017 10:18:13 | | + + + + + + + | Specimen | Performing Laboratory | + + + | | [facility] [address] [place] [address] | | | [place] [address] | + + + 12 LEAD ECG (11/21/2017 6:56 PM) + + + + | Component | Value | Ref Range | + + + + | VENTRICULAR RATE | 61 | bpm | + + + + | ATRIAL RATE | 61 | ms | + + + + | P-R INTERVAL | 139 | ms | + + + + | P AXIS | 55 | deg | + + + + | QRS DURATION | 128 | ms | + + + + | QT | 443 | ms | + + + + | QTCB | 446 | ms | + + + + | R AXIS | 77 | deg | + + + + | T AXIS | 16 | deg | + + + + | ECG IMPRESSION | Sinus rhythm | | + + + + | ECG IMPRESSION | Right bundle branch block- ABNORMAL ECG - | | + + + + | ECG IMPRESSION | Electronically signed by: PAULO CAVAZOS | | | | 11-23-2017 10:18:49 | | + + + + + + + | Specimen | Performing Laboratory | + + + | | [facility] [address] [place] [address] | | | [place] [address] | + + + X-RAY SPINE CERVICAL 3 VIEWS (11/21/2017 2:23 PM) + + + | Specimen | Performing Laboratory | + + + | | [facility] VOICE RECOGNITION 2 | + + + + + | Narrative | + + | EXAM: SPINE CERVICAL 3 VIEWS HISTORY: follow up imaging Cervical Spine fractures C | | 6, C 7 COMPARISON: 09/14/2017 FINDINGS: The cervical spine is visualized | | through the C5-6 disc space on lateral views. The C6 spinous process and C7 laminar | | fractures are not well outlined body. No new fracture or focal destruction is detected. | | Grade 1 C4 on C5 anterolisthesis is unchanged. Lower cervical degenerative disc disease | | and mild multilevel facet arthropathy are again noted. The craniocervical and C1-2 | | relationships are intact. There is no focal soft tissue abnormality. IMPRESSION: | | Nonvisualized C6 and C7 fractures. No new osseous abnormality detected. Unchanged | | lower cervical degenerative disc disease, multilevel facet arthropathy and grade 1 C4 on | | C5 anterolisthesis. I have personally reviewed the images and, if necessary, edited | | the report. I agree with the report as now presented. Final signature: Susi nSyder | | MD Abi 11/21/2017 2:29 PM Preliminary: Susi Alex MD Dictation | | initiated: Susi Alex MD 11/21/2017 2:27 PM | + + + + | Procedure Note [...] MD 11/21/2017 2:27 PM | + + RENAL FUNCTION SET (NA,K,CL,CO2,BUN,CREAT,GLUC,CA,PHOS,ALB ) (11/21/2017 4:17 AM) + + + + | Component | Value | Ref Range | + + + + | GLUCOSE, PLASMA | 87 | 70 - 99 mg/dL | | (LAB) | | | + + + + | BUN, PLASMA (LAB) | 15 | 6 - 20 mg/dL | + + + + | CREATININE PLASMA | 0.50 (L) | 0.70 - 1.30 mg/dL | | (LAB) | | | + + + + | EGFR - | >60 | >60 mL/min | | GABONESE | | | + + + + | EGFR NON | >60 | >60 mL/min | | -GABONESE | | | + + + + | SODIUM, PLASMA (LAB) | 139 | 136 - 145 mmol/L | + + + + | POTASSIUM, PLASMA | 4.1 | 3.4 - 5.0 mmol/L | | (LAB) | | | + + + + | CHLORIDE, PLASMA | 106 | 97 - 108 mmol/L | | (LAB) | | | + + + + | TOTAL CO2, PLASMA | 25 | 21 - 32 mmol/L | | (LAB) | | | + + + + | CALCIUM, PLASMA | 8.6 | 8.6 - 10.2 mg/dL | | (LAB) | | | + + + + | CALCIUM(ALB | 9.2 | 8.6 - 10.2 mg/dL | | CORRECTED) | | | + + + + | ALBUMIN, PLASMA | 3.2 (L) | 3.5 - 4.7 g/dL | | (LAB) | | | + + + + | PHOSPHORUS, PLASMA | 4.8 (H) | 2.4 - 4.7 mg/dL | | (LAB) | | | + + + + | POTASSIUM CMNT | No Hemo | | + + + + | ANION GAP | 8 | 4 - 11 mmol/L | + + + + | ANION GAP(ALB | 10 | 4 - 11 mmol/L | | CORRECTED) | | | + + + + + + + | Specimen | Performing Laboratory | + + + | Blood | [facility], [address] [address] [facility] | | | [place] [address] | + + + + + | Narrative | + + | GFR is estimated using the MDRD equation recommended by the National Kidney Disease | | Education Program. Estimated GFR Interpretive Information: <60 mL/min/1.73 sq | | m Chronic Kidney Disease <15 mL/min/1.73 sq | | m Kidney Failure Estimated GFR greater that 60 mL/min/1.73 | | sq m is of limited clinical value. The MDRD equation is not valid in the following | | situations: - Patients under 18 years of age - Severe malnutrition or obesity - | | Vegetarian diet - Rapidly changing kidney function - Amputees, paraplegics, or other | | muscle-wasting diseses | + + MAGNESIUM, PLASMA (11/21/2017 4:17 AM) + +-------+ + | Component | Value | Ref Range | + +-------+ + | MAGNESIUM,PLASMA | 2.1 | 1.6 - 2.6 mg/dL | + +-------+ + + + + | Specimen | Performing Laboratory | + + + | Blood | [facility], [address] [address] [facility] | | | [place] [address] | + + + + + | Narrative | + + | Reference range change effective 12/11/16. | + + VASC LAB VENOUS DUPLEX LOWER EXTREMITY BILAT COMP (11/19/2017 11:05 AM) + + + | Specimen | Performing Laboratory | + + + | | [facility] | + + + + + | Narrative | + + | Bilateral: The duplex scanner was used to examine the deep and superficial veins of | | the right and left lower extremities. The veins are patent bilaterally with normal | | flow and responses to augmentation and compression maneuvers and no thrombus is noted. | | Conclusions: A normal venous examination of the bilateral lower extremities. No | | venous thrombosis was detected. I have personally reviewed the images and, | | if necessary, edited the report. I agree with the report as now presented. | + + + + | Procedure Note | + + | 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, [employer] In Interface - 11/19/2017 11:26 AM [...] report as now presented. | + + 12 LEAD ECG (11/19/2017 10:15 AM) + + + + | Component | Value | Ref Range | + + + + | VENTRICULAR RATE | 63 | bpm | + + + + | ATRIAL RATE | 63 | ms | + + + + | P-R INTERVAL | 139 | ms | + + + + | P AXIS | 72 | deg | + + + + | QRS DURATION | 129 | ms | + + + + | QT | 429 | ms | + + + + | QTCB | 440 | ms | + + + + | R AXIS | 67 | deg | + + + + | T AXIS | 18 | deg | + + + + | ECG IMPRESSION | Sinus rhythm | | + + + + | ECG IMPRESSION | Right bundle branch block | | + + + + | ECG IMPRESSION | Low voltage, precordial leads- ABNORMAL ECG | | | | - | | + + + + | ECG IMPRESSION | Electronically signed by: AJAY DE LOS SANTOS | | | | 11-19-2017 13:02:33 | | + + + + + + + | Specimen | Performing Laboratory | + + + | | [facility] [address] [place] [address] | | | [place] [address] | + + + 12 LEAD ECG (11/18/2017 9:47 AM) + + + + | Component | Value | Ref Range | + + + + | VENTRICULAR RATE | 56 | bpm | + + + + | ATRIAL RATE | 56 | ms | + + + + | P-R INTERVAL | 140 | ms | + + + + | P AXIS | 46 | deg | + + + + | QRS DURATION | 130 | ms | + + + + | QT | 444 | ms | + + + + | QTCB | 429 | ms | + + + + | R AXIS | 82 | deg | + + + + | T AXIS | 15 | deg | + + + + | ECG IMPRESSION | Sinus bradycardia | | + + + + | ECG IMPRESSION | Right bundle branch block | | + + + + | ECG IMPRESSION | Borderline ST elevation, anterolateral | | | | leads- ABNORMAL ECG - | | + + + + | ECG IMPRESSION | Electronically signed by: PAULO CAVAZOS | | | | 11-19-2017 09:02:43 | | + + + + + + + | Specimen | Performing Laboratory | + + + | | [facility] [address] [place] [address] | | | [place] [address] | + + + CALCIUM, IONIZED, WHOLE BLOOD (11/18/2017 9:41 AM) + +-------+ + | Component | Value | Ref Range | + +-------+ + | MAHOGANY ICA, WHOLE BLD | 1.17 | 1.14 - 1.32 mmol/L | + +-------+ + | PH, WHOLE BLOOD | 7.37 | | + +-------+ + | ICA, CORRECTED TO PH | 1.15 | 1.14 - 1.28 mmol/L | | 7.4 | | | + +-------+ + + + + | Specimen | Performing Laboratory | + + + | Blood | [facility], [place] [address] [place] [address] | | | [place] [address] | + + + C-REACTIVE PROTEIN (11/18/2017 7:45 AM) + +-------+ + | Component | Value | Ref Range | + +-------+ + | C-REACTIVE PROTEIN | <2.9 | <10.0 mg/L | + +-------+ + + + + | Specimen | Performing Laboratory | + + + | Blood | [facility], [place] [address] [facility] | | | [place] [address] | + + + + + | Narrative | + + | New method, new reference range and new reporting units as of 09/30/2013. | + + PREALBUMIN (11/18/2017 7:45 AM) + +-------+ + | Component | Value | Ref Range | + +-------+ + | PREALBUMIN | 28.6 | 17.0 - 42.0 mg/dL | + +-------+ + + + + | Specimen | Performing Laboratory | + + + | Blood | [facility] [address] [place], [place] | | | [address] | + + + TRIGLYCERIDES, PLASMA (11/18/2017 7:45 AM) + +---------+ + | Component | Value | Ref Range | + +---------+ + | TRIGLYCERIDES | 162 (H) | <150 mg/dL | + +---------+ + + + + | Specimen | Performing Laboratory | + + + | Blood | [facility], CORE [address] | | | [place] [address] | + + + + + | Narrative | + + | Triglyceride Reference Range: Normal: <150 mg/dL | | Borderline High: 150-199 mg/dL High: 200-499 mg/dL | | Very High: >=500 mg/dL | + + LIVER SET (AST,ALT,BILI TOTAL,BILI DIRECT,ALK PHOS,ALB,PROT TOTAL) (11/18/2017 7:45 AM) + +---------+ + | Component | Value | Ref Range | + +---------+ + | ALBUMIN, PLASMA | 3.4 (L) | 3.5 - 4.7 g/dL | | (LAB) | | | + +---------+ + | BILIRUBIN TOTAL | 0.3 | 0.3 - 1.2 mg/dL | + +---------+ + | BILIRUBIN DIRECT | <0.1 | 0.0 - 0.3 mg/dL | + +---------+ + | ALK PHOS | 213 (H) | 53 - 128 U/L | + +---------+ + | AST(SGOT) | 25 | <=41 U/L | + +---------+ + | ALT (SGPT) | 40 | <=60 U/L | + +---------+ + | TOTAL PROTEIN, | 7.4 | 6.4 - 8.2 g/dL | | PLASMA (LAB) | | | + +---------+ + | AST CMNT | No Hemo | | + +---------+ + | BILI T CMNT | No Hemo | | + +---------+ + | BRET SHIPLEY | No Hemo | | + +---------+ + + + + | Specimen | Performing Laboratory | + + + | Blood | [facility], [address] [facility] | | | [place] [address] | + + + RENAL FUNCTION SET (NA,K,CL,CO2,BUN,CREAT,GLUC,CA,PHOS,ALB ) (11/18/2017 7:45 AM) + + + + | Component | Value | Ref Range | + + + + | GLUCOSE, PLASMA | 114 (H) | 70 - 99 mg/dL | | (LAB) | | | + + + + | BUN, PLASMA (LAB) | 16 | 6 - 20 mg/dL | + + + + | CREATININE PLASMA | 0.53 (L) | 0.70 - 1.30 mg/dL | | (LAB) | | | + + + + | EGFR - | >60 | >60 mL/min | | GABONESE | | | + + + + | EGFR NON | >60 | >60 mL/min | | -GABONESE | | | + + + + | SODIUM, PLASMA (LAB) | 140 | 136 - 145 mmol/L | + + + + | POTASSIUM, PLASMA | 4.1 | 3.4 - 5.0 mmol/L | | (LAB) | | | + + + + | CHLORIDE, PLASMA | 104 | 97 - 108 mmol/L | | (LAB) | | | + + + + | TOTAL CO2, PLASMA | 29 | 21 - 32 mmol/L | | (LAB) | | | + + + + | CALCIUM, PLASMA | 8.9 | 8.6 - 10.2 mg/dL | | (LAB) | | | + + + + | CALCIUM(ALB | 9.4 | 8.6 - 10.2 mg/dL | | CORRECTED) | | | + + + + | ALBUMIN, PLASMA | 3.4 (L) | 3.5 - 4.7 g/dL | | (LAB) | | | + + + + | PHOSPHORUS, PLASMA | 4.2 | 2.4 - 4.7 mg/dL | | (LAB) | | | + + + + | POTASSIUM CMNT | No Hemo | | + + + + | ANION GAP | 7 | 4 - 11 mmol/L | + + + + | ANION GAP(ALB | 8 | 4 - 11 mmol/L | | CORRECTED) | | | + + + + + + + | Specimen | Performing Laboratory | + + + | Blood | [facility], [address] [address] | | | [place] [address] | + + + + + | Narrative | + + | GFR is estimated using the MDRD equation recommended by the National Kidney Disease | | Education Program. Estimated GFR Interpretive Information: <60 mL/min/1.73 sq | | m Chronic Kidney Disease <15 mL/min/1.73 sq | | m Kidney Failure Estimated GFR greater that 60 mL/min/1.73 | | sq m is of limited clinical value. The MDRD equation is not valid in the following | | situations: - Patients under 18 years of age - Severe malnutrition or obesity - | | Vegetarian diet - Rapidly changing kidney function - Amputees, paraplegics, or other | | muscle-wasting diseses | + + MAGNESIUM, PLASMA (11/18/2017 7:45 AM) + +-------+ + | Component | Value | Ref Range | + +-------+ + | MAGNESIUM,PLASMA | 2.2 | 1.6 - 2.6 mg/dL | + +-------+ + + + + | Specimen | Performing Laboratory | + + + | Blood | [facility], [place] [address] [place] [address] [place] | | | [place] [address] | + + + + + | Narrative | + + | Reference range change effective 8/15/17. | + + 12 LEAD ECG (11/17/2017 9:36 AM) + + + + | Component | Value | Ref Range | + + + + | VENTRICULAR RATE | 67 | bpm | + + + + | ATRIAL RATE | 67 | ms | + + + + | P-R INTERVAL | 167 | ms | + + + + | P AXIS | 111 | deg | + + + + | QRS DURATION | 126 | ms | + + + + | QT | 405 | ms | + + + + | QTCB | 427 | ms | + + + + | R AXIS | 87 | deg | + + + + | T AXIS | 14 | deg | + + + + | ECG IMPRESSION | Sinus rhythm | | + + + + | ECG IMPRESSION | Right bundle branch block- ABNORMAL ECG - | | + + + + | ECG IMPRESSION | Electronically signed by: AJAY DE LOS SANTOS | | | | 11-17-2017 09:44:21 | | + + + + + + + | Specimen | Performing Laboratory | + + + | | [facility] [address] [place] [address] | | | [place] [address] | + + + 12 LEAD ECG (11/16/2017 11:09 AM) + + + + | Component | Value | Ref Range | + + + + | VENTRICULAR RATE | 68 | bpm | + + + + | ATRIAL RATE | 67 | ms | + + + + | P-R INTERVAL | 135 | ms | + + + + | P AXIS | 53 | deg | + + + + | QRS DURATION | 129 | ms | + + + + | QT | 423 | ms | + + + + | QTCB | 449 | ms | + + + + | R AXIS | 75 | deg | + + + + | T AXIS | 30 | deg | + + + + | ECG IMPRESSION | Sinus rhythm | | + + + + | ECG IMPRESSION | Right bundle branch block- ABNORMAL ECG - | | + + + + | ECG IMPRESSION | Electronically signed by: AJAY DE LOS SANTOS | | | | 11-16-2017 11:21:38 | | + + + + + + + | Specimen | Performing Laboratory | + + + | | [facility] [address] [place] [address] | | | [place] [phone] | + + + CBC (HEMOGRAM) ONLY (11/15/2017 2:15 PM) + + + + | Component | Value | Ref Range | + + + + | WHITE CELL COUNT | 5.17 | 3.50 - 10.80 K/cu mm | + + + + | RED CELL COUNT | 3.37 (L) | 4.50 - 6.00 M/cu mm | + + + + | HEMOGLOBIN | 9.8 (L) | 13.5 - 17.5 g/dL | + + + + | HEMATOCRIT | 31.1 (L) | 41.0 - 53.0 % | + + + + | MCV | 92.3 | 80.0 - 100.0 fL | + + + + | MCHC | 31.5 (L) | 32.0 - 36.0 g/dL | + + + + | RDW SD | 51.1 (H) | 35.1 - 46.3 fL | + + + + | PLATELET COUNT | 177 | 150 - 400 K/cu mm | + + + + | MPV | 10.3 | 9.7 - 12.3 fL | + + + + | NRBC% | 0.0 | 0.0 - 0.3 % | + + + + | NRBC# | 0.00 | 0.00 - 0.02 K/cu mm | + + + + + + + | Specimen | Performing Laboratory | + + + | Blood | [facility], [address] [facility] | | | [place] [address] | + + + + + | Narrative | + + | New reference ranges for MCV, MCHC, PLT, IG% and IG# effective 09/05/2017 | + + CBC ONLY (11/15/2017 2:15 PM) + + + | Specimen | Performing Laboratory | + + + | Blood | | + + + + + | Narrative | + + | The following orders were created for panel order CBC ONLY. | | Procedure | | Abnormality Status | | --------- | | ------ CBC (HEMOGRAM) | | ONLY[[id number]] Abnormal Final | | result Please view results for these tests on the | | individual orders. | + + 12 LEAD ECG (11/15/2017 8:21 AM) + + + + | Component | Value | Ref Range | + + + + | VENTRICULAR RATE | 51 | bpm | + + + + | ATRIAL RATE | 52 | ms | + + + + | P-R INTERVAL | 144 | ms | + + + + | P AXIS | 53 | deg | + + + + | QRS DURATION | 156 | ms | + + + + | QT | 444 | ms | + + + + | QTCB | 411 | ms | + + + + | R AXIS | 87 | deg | + + + + | T AXIS | 24 | deg | + + + + | ECG IMPRESSION | Sinus bradycardia | | + + + + | ECG IMPRESSION | Right bundle branch block- ABNORMAL ECG - | | + + + + | ECG IMPRESSION | Electronically signed by: AJAY DE LOS SANTOS | | | | 11-16-2017 11:00:02 | | + + + + + + + | Specimen | Performing Laboratory | + + + | | [facility] [address] [place] [address] | | | [place] [address] | + + + RENAL FUNCTION SET (NA,K,CL,CO2,BUN,CREAT,GLUC,CA,PHOS,ALB ) (11/14/2017 4:05 AM) + + + + | Component | Value | Ref Range | + + + + | GLUCOSE, PLASMA | 98 | 70 - 99 mg/dL | | (LAB) | | | + + + + | BUN, PLASMA (LAB) | 16 | 6 - 20 mg/dL | + + + + | CREATININE PLASMA | 0.50 (L) | 0.70 - 1.30 mg/dL | | (LAB) | | | + + + + | EGFR - | >60 | >60 mL/min | | GABONESE | | | + + + + | EGFR NON | >60 | >60 mL/min | | -GABONESE | | | + + + + | SODIUM, PLASMA (LAB) | 144 | 136 - 145 mmol/L | + + + + | POTASSIUM, PLASMA | 3.7 | 3.4 - 5.0 mmol/L | | (LAB) | | | + + + + | CHLORIDE, PLASMA | 107 | 97 - 108 mmol/L | | (LAB) | | | + + + + | TOTAL CO2, PLASMA | 31 | 21 - 32 mmol/L | | (LAB) | | | + + + + | CALCIUM, PLASMA | 8.0 (L) | 8.6 - 10.2 mg/dL | | (LAB) | | | + + + + | CALCIUM(ALB | 9.0 | 8.6 - 10.2 mg/dL | | CORRECTED) | | | + + + + | ALBUMIN, PLASMA | 2.8 (L) | 3.5 - 4.7 g/dL | | (LAB) | | | + + + + | PHOSPHORUS, PLASMA | 3.5 | 2.4 - 4.7 mg/dL | | (LAB) | | | + + + + | POTASSIUM CMNT | No Hemo | | + + + + | ANION GAP | 6 | 4 - 11 mmol/L | + + + + | ANION GAP(ALB | 9 | 4 - 11 mmol/L | | CORRECTED) | | | + + + + + + + | Specimen | Performing Laboratory | + + + | Blood | [facility], [address] [facility] | | | [place] [address] | + + + + + | Narrative | + + | GFR is estimated using the MDRD equation recommended by the National Kidney Disease | | Education Program. Estimated GFR Interpretive Information: <60 mL/min/1.73 sq | | m Chronic Kidney Disease <15 mL/min/1.73 sq | | m Kidney Failure Estimated GFR greater that 60 mL/min/1.73 | | sq m is of limited clinical value. The MDRD equation is not valid in the following | | situations: - Patients under 18 years of age - Severe malnutrition or obesity - | | Vegetarian diet - Rapidly changing kidney function - Amputees, paraplegics, or other | | muscle-wasting diseses | + + MAGNESIUM, PLASMA (11/14/2017 4:05 AM) + +-------+ + | Component | Value | Ref Range | + +-------+ + | MAGNESIUM,PLASMA | 2.0 | 1.6 - 2.6 mg/dL | + +-------+ + + + + | Specimen | Performing Laboratory | + + + | Blood | [facility], [address] | | | [place] [address] | + + + + + | Narrative | + + | Reference range change effective 12/11/16. | + + 12 LEAD ECG (11/13/2017 9:41 AM) + + + + | Component | Value | Ref Range | + + + + | VENTRICULAR RATE | 64 | bpm | + + + + | ATRIAL RATE | 64 | ms | + + + + | P-R INTERVAL | 143 | ms | + + + + | P AXIS | 41 | deg | + + + + | QRS DURATION | 121 | ms | + + + + | QT | 414 | ms | + + + + | QTCB | 427 | ms | + + + + | R AXIS | 75 | deg | + + + + | T AXIS | 39 | deg | + + + + | ECG IMPRESSION | Sinus rhythm | | + + + + | ECG IMPRESSION | Right bundle branch block- ABNORMAL ECG - | | + + + + | ECG IMPRESSION | Electronically signed by: AJAY DE LOS SANTOS | | | | 11-13-2017 19:29:34 | | + + + + + + + | Specimen | Performing Laboratory | + + + | | [facility] [address] [facility] | | | [place] [address] | + + + MAGNESIUM, PLASMA (11/13/2017 5:47 AM) + +-------+ + | Component | Value | Ref Range | + +-------+ + | MAGNESIUM,PLASMA | 2.1 | 1.6 - 2.6 mg/dL | + +-------+ + + + + | Specimen | Performing Laboratory | + + + | Blood | [facility], [address] [place] | | | [place] [address] | + + + + + | Narrative | + + |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 -GABONESE | | | + + + + | SODIUM, PLASMA (LAB) | 144 | 136 - 145 mmol/L | + + + + | POTASSIUM, PLASMA | 3.4 | 3.4 - 5.0 mmol/L | | (LAB) | | | + + + + | CHLORIDE, PLASMA | 106 | 97 - 108 mmol/L | | (LAB) | | | + + + + | TOTAL CO2, PLASMA | 30 | 21 - 32 mmol/L | | (LAB) | | | + + + + | CALCIUM, PLASMA | 8.4 (L) | 8.6 - 10.2 mg/dL | | (LAB) | | | + + + + | CALCIUM(ALB | 9.3 | 8.6 - 10.2 mg/dL | | CORRECTED) | | | + + + + | ALBUMIN, PLASMA | 2.9 (L) | 3.5 - 4.7 g/dL | | (LAB) | | | + + + + | PHOSPHORUS, PLASMA | 3.8 | 2.4 - 4.7 mg/dL | | (LAB) | | | + + + + | POTASSIUM CMNT | No Hemo | | + + + + | ANION GAP | 8 | 4 - 11 mmol/L | + + + + | ANION GAP(ALB | 10 | 4 - 11 mmol/L | | CORRECTED) | | | + + + + + + + | Specimen | Performing Laboratory | + + + | Blood | [facility], [facility] [address] | | | [place] [address] | + + + + + | Narrative | + + | GFR is estimated using the MDRD equation recommended by the National Kidney Disease | | Education Program. Estimated GFR Interpretive Information: <60 mL/min/1.73 sq | | m Chronic Kidney Disease <15 mL/min/1.73 sq | | m Kidney Failure Estimated GFR greater that 60 mL/min/1.73 | | sq m is of limited clinical value. The MDRD equation is not valid in the following | | situations: - Patients under 18 years of age - Severe malnutrition or obesity - | | Vegetarian diet - Rapidly changing kidney function - Amputees, paraplegics, or other | | muscle-wasting diseses | + + 12 LEAD ECG (11/08/2017 9:07 AM) + + + + | Component | Value | Ref Range | + + + + | VENTRICULAR RATE | 63 | bpm | + + + + | ATRIAL RATE | 63 | ms | + + + + | P-R INTERVAL | 137 | ms | + + + + | P AXIS | 82 | deg | + + + + | QRS DURATION | 125 | ms | + + + + | QT | 435 | ms | + + + + | QTCB | 446 | ms | + + + + | R AXIS | 81 | deg | + + + + | T AXIS | 29 | deg | + + + + | ECG IMPRESSION | Sinus rhythm | | + + + + | ECG IMPRESSION | Right bundle branch block- ABNORMAL ECG - | | + + + + | ECG IMPRESSION | Electronically signed by: JULIO VIZCAINO | | | | 11-08-2017 17:47:08 | | + + + + + + + | Specimen | Performing Laboratory | + + + | | [facility] [address] [place] [address] | | | [place] [address] | + + + CT HEAD WO CONTRAST (11/07/2017 3:43 PM) + + + | Specimen | Performing Laboratory | + + + | | [facility] VOICE RECOGNITION 2 | + + + + + | Narrative | + + | EXAM: CT HEAD WITHOUT CONTRAST HISTORY: eval s/p crani COMPARISON: CT head | | without contrast 11/05/2017, CT head stereotactic without contrast 10/31/2017 | | TECHNIQUE: CT of the head without intravenous contrast. FINDINGS: BRAIN: | | Redemonstrated right cranioplasty. Slightly decreased extra-axial air. Stable layering | | right-sided extra-axial hyperdense fluid. Stable leftward midline shift. Stable right | | temporal encephalomalacia. No evidence of mass, or acute infarction. The | | ventricles are normal in size and morphology. SOFT TISSUES: Unremarkable. SKULL AND | | SKULL BASE: Right cranioplasty. No fractures or destructive lesions. Mastoids and | | middle ears are unremarkable. FACE/ORBITS: Visualized portions are unremarkable. | | PARANASAL SINUSES: Visualized portions are unremarkable. IMPRESSION: Stable | | extra-axial hyperdense fluid collections. Stable midline shift. I have personally | | reviewed the images and, if necessary, edited the report. I agree with the report as now | | presented. Final signature: Master Bender MD 11/07/2017 4:04 PM | | Preliminary: Leif Caal MD Dictation initiated: Leif Caal MD | | 11/07/2017 3:37 PM | + + + + | Procedure Note [...] MD 11/07/2017 3:37 PM | + + 12 LEAD ECG (11/07/2017 9:30 AM) + + + + | Component | Value | Ref Range | + + + + | VENTRICULAR RATE | 83 | bpm | + + + + | ATRIAL RATE | 84 | ms | + + + + | P-R INTERVAL | 135 | ms | + + + + | P AXIS | 77 | deg | + + + + | QRS DURATION | 129 | ms | + + + + | QT | 421 | ms | + + + + | QTCB | 495 | ms | + + + + | R AXIS | 90 | deg | + + + + | T AXIS | 11 | deg | + + + + | ECG IMPRESSION | Sinus rhythm | | + + + + | ECG IMPRESSION | Right bundle branch block | | + + + + | ECG IMPRESSION | Borderline prolonged QT interval- ABNORMAL | | | | ECG - | | + + + + | ECG IMPRESSION | Electronically signed by: PAULO CAVAZOS | | | | 11-07-2017 12:30:43 | | + + + + + + + | Specimen | Performing Laboratory | + + + | | [facility] [address] [place] [address] | | | [place] [address] | + + + RENAL FUNCTION SET (NA,K,CL,CO2,BUN,CREAT,GLUC,CA,PHOS,ALB ) (11/07/2017 7:22 AM) + + + + | Component | Value | Ref Range | + + + + | GLUCOSE, PLASMA | 136 (H) | 70 - 99 mg/dL | | (LAB) | | | + + + + | BUN, PLASMA (LAB) | 17 | 6 - 20 mg/dL | + + + + | CREATININE PLASMA | 0.50 (L) | 0.70 - 1.30 mg/dL | | (LAB) | | | + + + + | EGFR - | >60 | >60 mL/min | | GABONESE | | | + + + + | EGFR NON | >60 | >60 mL/min | | -GABONESE | | | + + + + | SODIUM, PLASMA (LAB) | 144 | 136 - 145 mmol/L | + + + + | POTASSIUM, PLASMA | 3.5 | 3.4 - 5.0 mmol/L | | (LAB) | | | + + + + | CHLORIDE, PLASMA | 106 | 97 - 108 mmol/L | | (LAB) | | | + + + + | TOTAL CO2, PLASMA | 29 | 21 - 32 mmol/L | | (LAB) | | | + + + + | CALCIUM, PLASMA | 8.8 | 8.6 - 10.2 mg/dL | | (LAB) | | | + + + + | CALCIUM(ALB | 9.5 | 8.6 - 10.2 mg/dL | | CORRECTED) | | | + + + + | ALBUMIN, PLASMA | 3.1 (L) | 3.5 - 4.7 g/dL | | (LAB) | | | + + + + | PHOSPHORUS, PLASMA | 3.4 | 2.4 - 4.7 mg/dL | | (LAB) | | | + + + + | POTASSIUM CMNT | No Hemo | | + + + + | ANION GAP | 9 | 4 - 11 mmol/L | + + + + | ANION GAP(ALB | 11 | 4 - 11 mmol/L | | CORRECTED) | | | + + + + + + + | Specimen | Performing Laboratory | + + + | Blood | [facility], [place] [address] [place] [address] | | | [place] [address] | + + + + + | Narrative | + + | GFR is estimated using the MDRD equation recommended by the National Kidney Disease | | Education Program. Estimated GFR Interpretive Information: <60 mL/min/1.73 sq | | m Chronic Kidney Disease <15 mL/min/1.73 sq | | m Kidney Failure Estimated GFR greater that 60 mL/min/1.73 | | sq m is of limited clinical value. The MDRD equation is not valid in the following | | situations: - Patients under 18 years of age - Severe malnutrition or obesity - | | Vegetarian diet - Rapidly changing kidney function - Amputees, paraplegics, or other | | muscle-wasting diseses | + + MAGNESIUM, PLASMA (11/07/2017 7:22 AM) + +-------+ + | Component | Value | Ref Range | + +-------+ + | MAGNESIUM,PLASMA | 1.8 | 1.6 - 2.6 mg/dL | + +-------+ + + + + | Specimen | Performing Laboratory | + + + | Blood | [facility], [place] [address] | | | [place] [address] | + + + + + | Narrative | + + | Reference range change effective 12/11/16. | + + PROCEDURE NOTE (11/06/2017 9:47 PM)PRODUCT - RED CELLS LEUKOREDUCED (11/06/2017 8:03 AM) + + + + | Component | Value | Ref Range | + + + + | PRODUCT DESCRIPTION | -1 RED BLOOD CELL ADENINE-SALINE ADDED | | | | LEUKOCYTE | | + + + + | PRODUCT UNIT # | [id number] | | + + + + | UNIT ABO | O | | + + + + | UNIT RH | POS | | + + + + | STATUS OF UNIT | Returned to Blood Bank | | + + + + | EXPIRATION DATE | [id number] | | + + + + | BLOOD TYPE BARCODE | 5100 | | + + + + | BLOOD PRODUCT CODE | [id number] | | + + + + + + + | Specimen | Performing Laboratory | + + + | | [facility], [facility] [address] [facility] [address] | | | [place] [address] | + + + PRODUCT - RED CELLS LEUKOREDUCED (11/06/2017 8:03 AM) + + + + | Component | Value | Ref Range | + + + + | PRODUCT DESCRIPTION | -1 RED BLOOD CELL ADENINE-SALINE ADDED | | | | LEUKOCYTE | | + + + + | PRODUCT UNIT # | [id number] | | + + + + | UNIT ABO | O | | + + + + | UNIT RH | POS | | + + + + | STATUS OF UNIT | Returned to Blood Bank | | + + + + | EXPIRATION DATE | [phone] | | + + + + | BLOOD TYPE BARCODE | 5100 | | + + + + | BLOOD PRODUCT CODE | [id number] | | + + + + + + + | Specimen | Performing Laboratory | + + + | | [facility], [facility] [address] | | | [place] [address] | + + + CBC (HEMOGRAM) ONLY (11/06/2017 1:44 AM) + + + + | Component | Value | Ref Range | + + + + | WHITE CELL COUNT | 9.00 | 3.50 - 10.80 K/cu mm | + + + + | RED CELL COUNT | 3.72 (L) | 4.50 - 6.00 M/cu mm | + + + + | HEMOGLOBIN | 10.8 (L) | 13.5 - 17.5 g/dL | + + + + | HEMATOCRIT | 34.0 (L) | 41.0 - 53.0 % | + + + + | MCV | 91.4 | 80.0 - 100.0 fL | + + + + | MCHC | 31.8 (L) | 32.0 - 36.0 g/dL | + + + + | RDW SD | 50.9 (H) | 35.1 - 46.3 fL | + + + + | PLATELET COUNT | 273 | 150 - 400 K/cu mm | + + + + | MPV | 8.9 (L) | 9.7 - 12.3 fL | + + + + | NRBC% | 0.0 | 0.0 - 0.3 % | + + + + | NRBC# | 0.00 | 0.00 - 0.02 K/cu mm | + + + + + + + | Specimen | Performing Laboratory | + + + | Blood | [facility], [place] [address] [facility] | | | [place] [address] | + + + + + | Narrative | + + | New reference ranges for MCV, MCHC, PLT, IG% and IG# effective 09/05/2017 | + + CBC ONLY (11/06/2017 1:44 AM) + + + | Specimen | Performing Laboratory | + + + | Blood | | + + + + + | Narrative | + + | The following orders were created for panel order CBC ONLY. | | Procedure | | Abnormality Status | | --------- | | ------ CBC (HEMOGRAM) | | ONLY[[id number]] Abnormal Final | | result Please view results for these tests on the | | individual orders. | + + MAGNESIUM, PLASMA (11/06/2017 1:44 AM) + +-------+ + | Component | Value | Ref Range | + +-------+ + | MAGNESIUM,PLASMA | 1.9 | 1.6 - 2.6 mg/dL | + +-------+ + + + + | Specimen | Performing Laboratory | + + + | Blood | [facility], [place] [address] [facility] | | | [place] [address] | + + + + + | Narrative | + + | Reference range change effective 12/11/16. | + + RENAL FUNCTION SET (NA,K,CL,CO2,BUN,CREAT,GLUC,CA,PHOS,ALB ) (11/06/2017 1:44 AM) + + + + | Component | Value | Ref Range | + + + + | GLUCOSE, PLASMA | 155 (H) | 70 - 99 mg/dL | | (LAB) | | | + + + + | BUN, PLASMA (LAB) | 15 | 6 - 20 mg/dL | + + + + | CREATININE PLASMA | 0.50 (L) | 0.70 - 1.30 mg/dL | | (LAB) | | | + + + + | EGFR - | >60 | >60 mL/min | | GABONESE | | | + + + + | EGFR NON | >60 | >60 mL/min | | -GABONESE | | | + + + + | SODIUM, PLASMA (LAB) | 140 | 136 - 145 mmol/L | + + + + | POTASSIUM, PLASMA | 3.9 | 3.4 - 5.0 mmol/L | | (LAB) | | | + + + + | CHLORIDE, PLASMA | 106 | 97 - 108 mmol/L | | (LAB) | | | + + + + | TOTAL CO2, PLASMA | 27 | 21 - 32 mmol/L | | (LAB) | | | + + + + | CALCIUM, PLASMA | 8.7 | 8.6 - 10.2 mg/dL | | (LAB) | | | + + + + | CALCIUM(ALB | 9.3 | 8.6 - 10.2 mg/dL | | CORRECTED) | | | + + + + | ALBUMIN, PLASMA | 3.2 (L) | 3.5 - 4.7 g/dL | | (LAB) | | | + + + + | PHOSPHORUS, PLASMA | 3.9 | 2.4 - 4.7 mg/dL | | (LAB) | | | + + + + | POTASSIUM CMNT | No Hemo | | + + + + | ANION GAP | 7 | 4 - 11 mmol/L | + + + + | ANION GAP(ALB | 9 | 4 - 11 mmol/L | | CORRECTED) | | | + + + + + + + | Specimen | Performing Laboratory | + + + | Blood | [facility], [place] [address] | | | [place] [address] | + + + + + | Narrative | + + | GFR is estimated using the MDRD equation recommended by the National Kidney Disease | | Education Program. Estimated GFR Interpretive Information: <60 mL/min/1.73 sq | | m Chronic Kidney Disease <15 mL/min/1.73 sq | | m Kidney Failure Estimated GFR greater that 60 mL/min/1.73 | | sq m is of limited clinical value. The MDRD equation is not valid in the following | | situations: - Patients under 18 years of age - Severe malnutrition or obesity - | | Vegetarian diet - Rapidly changing kidney function - Amputees, paraplegics, or other | | muscle-wasting diseses | + + OPERATION RECORD (11/06/2017 12:27 AM) + + | Procedure Note | + + | Magdiel Stock MD - 11/06/2017 12:27 AM PDT Date of Service: 11/05/2017 Attending | | Surgeon: Magdiel Stock MD Therapeutic Program Worker(s): Rg Aiken MD | | Preoperative Diagnoses: [...] encounter.Specimen: None.Complications: | | None.Drains: A subgaleal JERONIMO to suction.Disposition: PACU then Trauma ICU.Findings: A [...] his head was placed in a horseshoe transcribing operator head with his C-collar still | | attached [...] maintain core body temperature. | | No Rees was placed given the patient's baseline incontinence [...] the incision down to the cranium. Once [place] | | skull was reached circumferentially around the prior incision, a #1 [place] was used | | to subperiosteally dissect [...] note for this encounter.Sonal Nunez, | | [id number] [place], [place] | | [id number] Orina, MDJB/TAHIRLDD: 11/05/2017 20:38:01DT: 11/06/2017 | | 00:27:33Etienne #: [id number] | |HATTIE/DUC | | | | | | /[id number] | + + CT HEAD WO CONTRAST (11/05/2017 7:55 PM) + + + | Specimen | Performing Laboratory | + + + | | [facility]OGNITION 2 | + + + + + | Narrative | + + | EXAM: CT HEAD WITHOUT CONTRAST HISTORY: post-op COMPARISON: October 31, 2017 | | CT head TECHNIQUE: CT of the head without intravenous contrast. FINDINGS: | | BRAIN: Interval right cranioplasty. Extra-axial hyperdense fluid and air with the fluid | | measuring up to 14 mm in thickness. Improved leftward midline shift from prior exam. | | Stable right temporal encephalomalacia. No evidence of hemorrhage, mass, or acute | | infarction. The ventricles are normal in size and morphology. SOFT TISSUES: | | Unremarkable. SKULL AND SKULL BASE: Interval right cranioplasty. Mastoids and middle | | ears are unremarkable. FACE/ORBITS: Visualized portions are unremarkable. PARANASAL | | SINUSES: Visualized portions are unremarkable. IMPRESSION: Postoperative changes | | with new hyperdense extra-axial fluid collection along the cranioplasty site measuring | | up to 14 mm in maximal thickness. Improved midline shift. I have personally reviewed | | the images and, if necessary, edited the report. I agree with the report as now | | presented. Final signature: Daniel Armijo MD 11/05/2017 8:19 PM Preliminary: | | Daniel Armijo MD Dictation initiated: Daniel Armjio MD 11/05/2017 8:17 | | PM | + + + + | Procedure Note | + + | 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, [employer] Res In Interface - 11/05/2017 8:20 PM [...] MD 11/05/2017 8:17 PM | + + PROCEDURE NOTE (11/05/2017 7:30 PM) + + | Narrative | + + | Rg Aiken MD 11/05/2017 7:36 PM Neurosurgery Brief Operative Note | | 11/05/2017 7:31 PM Patient: [place] Temple Consent: Prior to the beginning of | | the procedure the team paused to verify the patient's identity, as well as the | | procedure to be performed and the correct side/site. All equipment required was | | ready and available. The patient was positioned appropriately. The following team | | members were present during the team pause: Neurosurgery, Anesthesiology, OR | | nursing staff. Surgeon: Magdiel Stock MD Therapeutic Program Worker: Rg Aiken MD | | Pre-op Diagnosis: Right acquired skull defect History of recent epidural pseudomonal | | abscess under prior cranioplasty Post-op Diagnosis: Same Procedure: Right | | titanium mesh cranioplasty EBL: 200 mL Fluids: see anesthesia encounter | | Specimen: none Complications: none Drain: subgaleal JERONIMO to suction | | Destination: PACU then trauma ICU Findings: Very sunken brain covered by scarred | | neodura; No CSF or purulence encountered; atrophied temporalis lifted with scalp | | flap; skin closed with nylons in vertical mattress pattern. Brief Plan: - ICU - | | Neuro checks - HOB 30 - No anticoagulation until cleared by neurosurgery - JERONIMO to | | suction, record outputs - Ancef while drain in - Routine wound care Rg | | MD Attila PGY-4 Neurological Surgery Pager [phone] | + + CAPILLARY BLOOD GLUCOSE (NO CHG), POC (11/05/2017 7:11 PM) + +---------+ + | Component | Value | Ref Range | + +---------+ + | BLOOD GLUCOSE, POC | 129 (H) | 70 - 99 mg/dL | + +---------+ + + + + | Specimen | Performing Laboratory | + + + | | [facility] [address] | | | [place] [address] | + + + CAPILLARY BLOOD GLUCOSE (NO CHG), POC (11/05/2017 1:33 PM) + +---------+ + | Component | Value | Ref Range | + +---------+ + | BLOOD GLUCOSE, POC | 103 (H) | 70 - 99 mg/dL | + +---------+ + + + + | Specimen | Performing Laboratory | + + + | | [facility] PIYUSH [facility], [facility]ARE TESTS [address] | | | [place] [address] | + + + VASC LAB VENOUS DUPLEX LOWER EXTREMITY BILAT COMP (11/05/2017 10:36 AM) + + + | Specimen | Performing Laboratory | + + + | | [facility] US | + + + + + | Narrative | + + | Bilateral: The duplex scanner was used to examine the deep and superficial veins of | | the right and left lower extremities. The veins are patent bilaterally with normal | | flow and responses to augmentation and compression maneuvers and no thrombus is noted. | | Conclusions: A normal venous examination of the bilateral lower extremities. No | | venous thrombosis was detected. I have personally reviewed the images and, | | if necessary, edited the report. I agree with the report as now presented. | + + + + | Procedure Note | + + | 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, [employer] In Interface - 11/05/2017 11:31 AM PDT [...] report as now presented. | + + CBC (HEMOGRAM) ONLY (11/05/2017 6:16 AM) + + + + | Component | Value | Ref Range | + + + + | WHITE CELL COUNT | 8.19 | 3.50 - 10.80 K/cu mm | + + + + | RED CELL COUNT | 3.78 (L) | 4.50 - 6.00 M/cu mm | + + + + | HEMOGLOBIN | 11.0 (L) | 13.5 - 17.5 g/dL | + + + + | HEMATOCRIT | 34.8 (L) | 41.0 - 53.0 % | + + + + | MCV | 92.1 | 80.0 - 100.0 fL | + + + + | MCHC | 31.6 (L) | 32.0 - 36.0 g/dL | + + + + | RDW SD | 50.5 (H) | 35.1 - 46.3 fL | + + + + | PLATELET COUNT | 210 | 150 - 400 K/cu mm | + + + + | MPV | 8.7 (L) | 9.7 - 12.3 fL | + + + + | NRBC% | 0.0 | 0.0 - 0.3 % | + + + + | NRBC# | 0.00 | 0.00 - 0.02 K/cu mm | + + + + + + + | Specimen | Performing Laboratory | + + + | Blood | [facility], CORE [address] | | | [place] [address] | + + + + + | Narrative | + + | New reference ranges for MCV, MCHC, PLT, IG% and IG# effective 09/05/2017 | + + MAGNESIUM, PLASMA (11/05/2017 6:16 AM) + +-------+ + | Component | Value | Ref Range | + +-------+ + | MAGNESIUM,PLASMA | 2.0 | 1.6 - 2.6 mg/dL | + +-------+ + + + + | Specimen | Performing Laboratory | + + + | Blood | [facility], CORE [address] [facility] | | | [place] [address] | + + + + + | Narrative | + + | Reference range change effective 12/11/16. | + + RENAL FUNCTION SET (NA,K,CL,CO2,BUN,CREAT,GLUC,CA,PHOS,ALB ) (11/05/2017 6:16 AM) + + + + | Component | Value | Ref Range | + + + + | GLUCOSE, PLASMA | 112 (H) | 70 - 99 mg/dL | | (LAB) | | | + + + + | BUN, PLASMA (LAB) | 18 | 6 - 20 mg/dL | + + + + | CREATININE PLASMA | 0.50 (L) | 0.70 - 1.30 mg/dL | | (LAB) | | | + + + + | EGFR - | >60 | >60 mL/min | | GABONESE | | | + + + + | EGFR NON | >60 | >60 mL/min | | -GABONESE | | | + + + + | SODIUM, PLASMA (LAB) | 143 | 136 - 145 mmol/L | + + + + | POTASSIUM, PLASMA | 3.8 | 3.4 - 5.0 mmol/L | | (LAB) | | | + + + + | CHLORIDE, PLASMA | 104 | 97 - 108 mmol/L | | (LAB) | | | + + + + | TOTAL CO2, PLASMA | 30 | 21 - 32 mmol/L | | (LAB) | | | + + + + | CALCIUM, PLASMA | 9.0 | 8.6 - 10.2 mg/dL | | (LAB) | | | + + + + | CALCIUM(ALB | 9.6 | 8.6 - 10.2 mg/dL | | CORRECTED) | | | + + + + | ALBUMIN, PLASMA | 3.2 (L) | 3.5 - 4.7 g/dL | | (LAB) | | | + + + + | PHOSPHORUS, PLASMA | 4.2 | 2.4 - 4.7 mg/dL | | (LAB) | | | + + + + | POTASSIUM CMNT | No Hemo | | + + + + | ANION GAP | 9 | 4 - 11 mmol/L | + + + + | ANION GAP(ALB | 11 | 4 - 11 mmol/L | | CORRECTED) | | | + + + + + + + | Specimen | Performing Laboratory | + + + | Blood | [facility], CORE [address] [facility] | | | [place] [address] | + + + + + | Narrative | + + | GFR is estimated using the MDRD equation recommended by the National Kidney Disease | | Education Program. Estimated GFR Interpretive Information: <60 mL/min/1.73 sq | | m Chronic Kidney Disease <15 mL/min/1.73 sq | | m Kidney Failure Estimated GFR greater that 60 mL/min/1.73 | | sq m is of limited clinical value. The MDRD equation is not valid in the following | | situations: - Patients under 18 years of age - Severe malnutrition or obesity - | | Vegetarian diet - Rapidly changing kidney function - Amputees, paraplegics, or other | | muscle-wasting diseses | + + COAGULOPATHY PANEL (INR,APTT,FIBRINOGEN) (11/05/2017 6:16 AM) + + + + | Component | Value | Ref Range | + + + + | INR | 1.00 | 0.90 - 1.20 INR | + + + + | APTT | 29.7 | 26.0 - 36.0 seconds | + + + + | FIBRINOGEN LEVEL | [id number]: New Reference Ranges as of | 150 - 450 mg/dL | | | 09/02/2017. | | + + + + + + + | Specimen | Performing Laboratory | + + + | Blood | [facility], CORE [address] | | | [place] [address] | + + + + + | Narrative | + + | INR Therapeutic ranges for full anticoagulation: INR for Venous | | Thromboembolism (2.0 - 3.0) INR INR for most patients with | | mech. valves (2.5 - 3.5) INR APTT Therapeutic | | Range: (75 - 120) sec Heparin levels | | of 0.35 - 0.7 U/mL | + + CBC ONLY (11/05/2017 6:16 AM) + + + | Specimen | Performing Laboratory | + + + | Blood | | + + + + + | Narrative | + + | The following orders were created for panel order CBC ONLY. | | Procedure | | Abnormality Status | | --------- | | ------ CBC (HEMOGRAM) | | ONLY[[id number]] Abnormal Final | | result Please view results for these tests on the | | individual orders. | + + CARDIOLOGY (11/05/2017)PRODUCT - RED CELLS LEUKOREDUCED (11/04/2017 8:19 PM) + + + + | Component | Value | Ref Range | + + + + | PRODUCT DESCRIPTION | -1 RED BLOOD CELL ADENINE-SALINE ADDED | | | | LEUKOCYTE | | + + + + | PRODUCT UNIT # | [id number] | | + + + + | UNIT ABO | O | | + + + + | UNIT RH | POS | | + + + + | STATUS OF UNIT | Returned to Blood Bank | | + + + + | EXPIRATION DATE | [id number] | | + + + + | BLOOD TYPE BARCODE | 5100 | | + + + + | BLOOD PRODUCT CODE | [id number] | | + + + + + + + | Specimen | Performing Laboratory | + + + | | [facility], [facility]ICINE [address] | | | [place] [address] | + + + PRODUCT - RED CELLS LEUKOREDUCED (11/04/2017 8:19 PM) + + + + | Component | Value | Ref Range | + + + + | PRODUCT DESCRIPTION | -1 RED BLOOD CELL ADENINE-SALINE ADDED | | | | LEUKOCYTE | | + + + + | PRODUCT UNIT # | [id number] | | + + + + | UNIT ABO | O | | + + + + | UNIT RH | POS | | + + + + | STATUS OF UNIT | Returned to Blood Bank | | + + + + | EXPIRATION DATE | [id number] | | + + + + | BLOOD TYPE BARCODE | 5100 | | + + + + | BLOOD PRODUCT CODE | [id number] | | + + + + + + + | Specimen | Performing Laboratory | + + + | | [facility], [facility]SF[facility] MEDICINE [address] | | | [place] [address] | + + + CBC (HEMOGRAM) ONLY (11/04/2017 5:11 PM) + + + + | Component | Value | Ref Range | + + + + | WHITE CELL COUNT | 5.68 | 3.50 - 10.80 K/cu mm | + + + + | RED CELL COUNT | 3.83 (L) | 4.50 - 6.00 M/cu mm | + + + + | HEMOGLOBIN | 11.2 (L) | 13.5 - 17.5 g/dL | + + + + | HEMATOCRIT | 35.3 (L) | 41.0 - 53.0 % | + + + + | MCV | 92.2 | 80.0 - 100.0 fL | + + + + | MCHC | 31.7 (L) | 32.0 - 36.0 g/dL | + + + + | RDW SD | 52.0 (H) | 35.1 - 46.3 fL | + + + + | PLATELET COUNT | 221 | 150 - 400 K/cu mm | + + + + | MPV | 9.2 (L) | 9.7 - 12.3 fL | + + + + | NRBC% | 0.0 | 0.0 - 0.3 % | + + + + | NRBC# | 0.00 | 0.00 - 0.02 K/cu mm | + + + + + + + | Specimen | Performing Laboratory | + + + | Blood | [facility], CORE [address] [address] | | | [place] [address] | + + + + + | Narrative | + + | New reference ranges for MCV, MCHC, PLT, IG% and IG# effective 09/05/2017 | + + ANTIBODY SCREEN (11/04/2017 5:11 PM) + + + + | Component | Value | Ref Range | + + + + | Antibody Screen | Negative | | + + + + + + + | Specimen | Performing Laboratory | + + + | Blood | [facility], [facility]SF[facility] MEDICINE [address] [place] [address] | | | [place] [address] | + + + ABO & RH TYPE (11/04/2017 5:11 PM) + + + + | Component | Value | Ref Range | + + + + | ABO Group | O | | + + + + | Rh Type | Positive | | + + + + + + + | Specimen | Performing Laboratory | + + + | Blood | [facility], [facility]ICINE [address] | | | [place] [address] | + + + TYPE AND SCREEN (11/04/2017 5:11 PM) + + + | Specimen | Performing Laboratory | + + + | Blood | | + + + + + | Narrative | + + | The following orders were created for panel order TYPE AND SCREEN. | | Procedure | | Abnormality Status | | --------- | | ------ ABO & RH | | TYPE[[id number]] F | | inal result ANTIBODY | | SCREEN[[id number]] Fin | | al result Please view results for these tests on the | | individual orders. | + + COAGULOPATHY PANEL (INR,APTT,FIBRINOGEN) (11/04/2017 5:11 PM) + + + + | Component | Value | Ref Range | + + + + | INR | 0.98 | 0.90 - 1.20 INR | + + + + | APTT | 29.4 | 26.0 - 36.0 seconds | + + + + |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 that 60 mL/min/1.73 | | sq m is of limited clinical value. The MDRD equation is not valid in the following | | situations: - Patients under 18 years of age - Severe malnutrition or obesity - | | Vegetarian diet - Rapidly changing kidney function - Amputees, paraplegics, or other | | muscle-wasting diseses | + + CAPILLARY BLOOD GLUCOSE (NO CHG), POC (10/29/2017 12:43 AM) + +---------+ + | Component | Value | Ref Range | + +---------+ + | BLOOD GLUCOSE, POC | 120 (H) | 70 - 99 mg/dL | + +---------+ + + + + | Specimen | Performing Laboratory | + + + | | [facility], POINT OF CARE TESTS [address] | | | [place] [address] | + + + 12 LEAD ECG (10/28/2017 2:18 PM) + + + + | Component | Value | Ref Range | + + + + | VENTRICULAR RATE | 74 | bpm | + + + + | ATRIAL RATE | 74 | ms | + + + + | P-R INTERVAL | 126 | ms | + + + + | P AXIS | 75 | deg | + + + + | QRS DURATION | 128 | ms | + + + + | QT | 417 | ms | + + + + | QTCB | 463 | ms | + + + + | R AXIS | 72 | deg | + + + + | T AXIS | 35 | deg | + + + + | ECG IMPRESSION | Sinus rhythm | | + + + + | ECG IMPRESSION | Right bundle branch block | | + + + + | ECG IMPRESSION | Borderline ST elevation, lateral leads- | | | | ABNORMAL ECG - | | + + + + | ECG IMPRESSION | Electronically signed by: AJAY DE LOS SANTOS | | | | 10-29-2017 21:24:36 | | + + + + + + + | Specimen | Performing Laboratory | + + + | | [facility] [address] [place] [address] | | | [place] [address] | + + + CAPILLARY BLOOD GLUCOSE (NO CHG), POC (10/28/2017 12:00 PM) + +---------+ + | Component | Value | Ref Range | + +---------+ + | BLOOD GLUCOSE, POC | 141 (H) | 70 - 99 mg/dL | + +---------+ + + + + | Specimen | Performing Laboratory | + + + | | [facility], POINT OF CARE TESTS [address] | | | [place] [address] | + + + CAPILLARY BLOOD GLUCOSE (NO CHG), POC (10/28/2017 6:43 AM) + +---------+ + | Component | Value | Ref Range | + +---------+ + | BLOOD GLUCOSE, POC | 127 (H) | 70 - 99 mg/dL | + +---------+ + + + + | Specimen | Performing Laboratory | + + + | | [facility], POINT OF CARE TESTS [address] | | | [place] [address] | + + + C-REACTIVE PROTEIN (10/28/2017 5:29 AM) + + + + | Component | Value | Ref Range | + + + + | C-REACTIVE PROTEIN | 17.9 (H) | <10.0 mg/L | + + + + + + + | Specimen | Performing Laboratory | + + + | Blood | [facility], CORE [address] [facility] [address] | | | [place] [address] | + + + + + | Narrative | + + | New method, new reference range and new reporting units as of 09/30/2013. | + + PREALBUMIN (10/28/2017 5:29 AM) + + + + | Component | Value | Ref Range | + + + + | PREALBUMIN | 16.5 (L) | 17.0 - 42.0 mg/dL | + + + + + + + | Specimen | Performing Laboratory | + + + | Blood | [facility] [address] [place], [place] | | | [address] | + + + TRIGLYCERIDES, PLASMA (10/28/2017 5:29 AM) + +-------+ + | Component | Value | Ref Range | + +-------+ + | TRIGLYCERIDES | 117 | <150 mg/dL | + +-------+ + + + + | Specimen | Performing Laboratory | + + + | Blood | [facility], CORE [address] [facility] | | | [place] [address] | + + + + + | Narrative | + + | Triglyceride Reference Range: Normal: <150 mg/dL | | Borderline High: 150-199 mg/dL High: 200-499 mg/dL | | Very High: >=500 mg/dL | + + CALCIUM, IONIZED, WHOLE BLOOD (10/28/2017 5:29 AM) + +-------+ + | Component | Value | Ref Range | + +-------+ + | MAHOGANY ICA, WHOLE BLD | 1.24 | 1.14 - 1.32 mmol/L | + +-------+ + | PH, WHOLE BLOOD | 7.39 | | + +-------+ + | ICA, CORRECTED TO PH | 1.23 | 1.14 - 1.28 mmol/L | | 7.4 | | | + +-------+ + + + + | Specimen | Performing Laboratory | + + + | Blood | [facility], CORE [address] [facility] | | | [place] [address] | + + + LIVER SET (AST,ALT,BILI TOTAL,BILI DIRECT,ALK PHOS,ALB,PROT TOTAL) (10/28/2017 5:29 AM) + +---------+ + | Component | Value | Ref Range | + +---------+ + | ALBUMIN, PLASMA | 3.0 (L) | 3.5 - 4.7 g/dL | | (LAB) | | | + +---------+ + | BILIRUBIN TOTAL | 0.4 | 0.3 - 1.2 mg/dL | + +---------+ + | BILIRUBIN DIRECT | 0.1 | 0.0 - 0.3 mg/dL | + +---------+ + | ALK PHOS | 211 (H) | 56 - 119 U/L | + +---------+ + | AST(SGOT) | 20 | <=41 U/L | + +---------+ + | ALT (SGPT) | 21 | <=60 U/L | + +---------+ + | TOTAL PROTEIN, | 7.7 | 6.4 - 8.2 g/dL | | PLASMA (LAB) | | | + +---------+ + | AST CMNT | No Hemo | | + +---------+ + | BILI T CMNT | No Hemo | | + +---------+ + | BILI D CMNT | No Hemo | | + +---------+ + + + + | Specimen | Performing Laboratory | + + + | Blood | [facility], [facility] [address] [facility] | | | [place] [address] | + + + RENAL FUNCTION SET (NA,K,CL,CO2,BUN,CREAT,GLUC,CA,PHOS,ALB ) (10/28/2017 5:29 AM) + + + + | Component | Value | Ref Range | + + + + | GLUCOSE, PLASMA | 87 | 70 - 99 mg/dL | | (LAB) | | | + + + + | BUN, PLASMA (LAB) | 10 | 6 - 20 mg/dL | + + + + | CREATININE PLASMA | 0.50 (L) | 0.70 - 1.30 mg/dL | | (LAB) | | | + + + + | EGFR - | >60 | >60 mL/min | | GABONESE | | | + + + + | EGFR NON | >60 | >60 mL/min | | -GABONESE | | | + + + + | SODIUM, PLASMA (LAB) | 141 | 136 - 145 mmol/L | + + + + | POTASSIUM, PLASMA | 4.0 | 3.4 - 5.0 mmol/L | | (LAB) | | | + + + + | CHLORIDE, PLASMA | 108 | 97 - 108 mmol/L | | (LAB) | | | + + + + | TOTAL CO2, PLASMA | 26 | 21 - 32 mmol/L | | (LAB) | | | + + + + | CALCIUM, PLASMA | 9.2 | 8.6 - 10.2 mg/dL | | (LAB) | | | + + + + | CALCIUM(ALB | 10.0 | 8.6 - 10.2 mg/dL | | CORRECTED) | | | + + + + | ALBUMIN, PLASMA | 3.0 (L) | 3.5 - 4.7 g/dL | | (LAB) | | | + + + + | PHOSPHORUS, PLASMA | 3.6 | 2.4 - 4.7 mg/dL | | (LAB) | | | + + + + | POTASSIUM CMNT | No Hemo | | + + + + | ANION GAP | 7 | 4 - 11 mmol/L | + + + + | ANION GAP(ALB | 9 | 4 - 11 mmol/L | | CORRECTED) | | | + + + + + + + | Specimen | Performing Laboratory | + + + | Blood | [facility], [address] [address] | | | [place] [address] | + + + + + | Narrative | + + | GFR is estimated using the MDRD equation recommended by the National Kidney Disease | | Education Program. Estimated GFR Interpretive Information: <60 mL/min/1.73 sq | | m Chronic Kidney Disease <15 mL/min/1.73 sq | | m Kidney Failure Estimated GFR greater that 60 mL/min/1.73 | | sq m is of limited clinical value. The MDRD equation is not valid in the following | | situations: - Patients under 18 years of age - Severe malnutrition or obesity - | | Vegetarian diet - Rapidly changing kidney function - Amputees, paraplegics, or other | | muscle-wasting diseses | + + MAGNESIUM, PLASMA (10/28/2017 5:29 AM) + +-------+ + | Component | Value | Ref Range | + +-------+ + | MAGNESIUM,PLASMA | 1.8 | 1.6 - 2.6 mg/dL | + +-------+ + + + + | Specimen | Performing Laboratory | + + + | Blood | [facility], [facility] [address] [facility] [address] | | | [place] [address] | + + + + + | Narrative | + + | Reference range change effective 12/11/16. | + + CAPILLARY BLOOD GLUCOSE (NO CHG), POC (10/28/2017 12:34 AM) + +---------+ + | Component | Value | Ref Range | + +---------+ + | BLOOD GLUCOSE, POC | 133 (H) | 70 - 99 mg/dL | + +---------+ + + + + | Specimen | Performing Laboratory | + + + | | [facility], POINT OF CARE TESTS [address] | | | [place] [address] | + + + CAPILLARY BLOOD GLUCOSE (NO CHG), POC (10/27/2017 6:48 PM) + +---------+ + | Component | Value | Ref Range | + +---------+ + | BLOOD GLUCOSE, POC | 128 (H) | 70 - 99 mg/dL | + +---------+ + + + + | Specimen | Performing Laboratory | + + + | | [facility], POINT OF CARE TESTS [address] | | | [place] [address] | + + + CT ABDOMEN AND PELVIS WO IV CONTRAST (10/27/2017 5:38 PM) + + + | Specimen | Performing Laboratory | + + + | | [facility] VOICE RECOGNITION 2 | + + + + + | Narrative | + + | EXAM: CT of the abdomen and pelvis WITHOUT intravenous contrast. HISTORY: | | Evaluate PEG tube in stomach COMPARISON: 10/22/2017 TECHNIQUE: CT of the | | abdomen and pelvis without intravenous contrast. Coronal and sagittal reformats were | | generated and reviewed. FINDINGS: Lack of intravenous contrast decreases | | sensitivity for detection of vascular and parenchymal pathology. LOWER THORAX: PICC | | line terminates in the right atrium. LIVER: Unremarkable. BILIARY: Gallstone in the | | gallbladder. Gallbladder is contracted. PANCREAS: Unremarkable. SPLEEN: | | Unremarkable. ADRENALS: Unremarkable. KIDNEYS/URETERS: Nonobstructing 4 mm calyceal | | stone in the upper pole of the right kidney. Otherwise, unremarkable. PELVIC | | ORGANS/BLADDER: Unremarkable. GI TRACT AND PERITONEUM: Percutaneous gastrostomy tube | | terminates in the gastric body. The stomach is not cinched to the anterior abdominal | | wall in this region. Previous gastrostomy tube has been removed. No new extravasated | | oral contrast is seen. Small amount of previously extravasated contrast in the anterior | | abdomen. Omental stranding in the upper abdomen adjacent to the gastric body and antrum. | | No fluid collection. Tiny bubble of air in the left anterior abdomen (image 49), which | | may be preperitoneal or intraperitoneal. A left upper quadrant approach drain terminates | | in the right subhepatic region. LYMPH NODES: No lymphadenopathy. VESSELS: | | Unremarkable. BONES AND SOFT TISSUES: Midline supraumbilical laparotomy incision | | with skin fernandez. Mild postoperative stranding in the anterior abdominal wall. | | Subacute, comminuted left superior and inferior pubic rami fractures with surrounding | | callus. Subacute, comminuted left sacral ala and left posterior iliac fractures. Chronic | | appearing left anterior iliac fracture. Subacute fracture of the T12 vertebral body | | with stable anterior wedging deformity. Degenerative changes in the spine. Partially | | imaged intramedullary sushma in the left femur. IMPRESSION: Since 10/22/2017, | | interval removal of prior percutaneous gastrostomy tube and placement of a new | | gastrostomy tube, which terminates in the gastric body. The stomach is not cinched to | | the anterior abdominal wall in the region of the tube. No extravasated contrast or | | loculated fluid collection seen. Tiny bubble of gas in the preperitoneal space or | | peritoneal cavity, which may be postprocedural in nature. I have personally reviewed | | the images and, if necessary, edited the report. I agree with the report as now | | presented. Final signature: Pham Webb MD 10/28/2017 9:20 AM | | Preliminary: Pham Webb MD Dictation initiated: Pham Webb | | 10/28/2017 8:42 AM | + + + + | Procedure Note | + + | 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, [employer] Res In Interface - 10/28/2017 9:21 AM [...] MD 10/28/2017 8:42 AM | + + X-RAY PORTABLE CHEST PICC LINE CHECK (10/27/2017 1:06 PM) + + + | Specimen | Performing Laboratory | + + + | | [facility] VOICE RECOGNITION 2 | + + + + + | Narrative | + + | EXAM: UT CHEST PICC LINE CHECK HISTORY: picc done COMPARISON: 09/23/2017 | | FINDINGS: Left upper extremity PICC with the tip terminating near the cavoatrial | | junction. Multiple devices overlie the chest. The cardiomediastinal silhouette is | | unchanged. There is no significant pneumothorax or pleural effusion. Bibasilar streaky | | airspace opacities. Remote posttraumatic appearance of the left proximal humerus and | | acromioclavicular joint. IMPRESSION: Interval placement of a left upper | | extremity PICC with the terminating near the cavoatrial junction. I have personally | | reviewed the images and, if necessary, edited the report. I agree with the report as now | | presented. Final signature: Francisco Javier Valverde MD 10/27/2017 6:28 PM | | Preliminary: Francisco Javier Valverde MD Dictation initiated: Francisco Javier Valverde MD | | 10/27/2017 6:27 PM | + + + + | Procedure Note | + + | 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, [employer] In Interface - 10/27/2017 6:29 PM PDT EXAM: UT CHEST | | PICC LINE CHECK HISTORY: [...] MD 10/27/2017 6:27 PM | + + PICC LINE (10/27/2017 12:27 PM) + + | Narrative | + + | Declan Herrera RN 10/27/2017 1:29 PM PICC LINE Performed by: DEISI, | | DECLAN Authorized by: CHAZ MUNOZ PICC/Midline Insertion Procedure Note | | Indications:Antibiotics and TPN Procedure location: Unit:13A Room: 4 Providers: | | Attending name: Attending physically present: No PICC Nurse name: Madiha Herrera RN | | Assisted by Tim Mendoza RN BSN Pre-Procedure Consent: written consent obtained | | Consent given by: Next of kin Patient identity confirmed per protocol: Yes Team | | Pause: Immediatly prior to the procedure a pause per protocol was called. A pause | | verifies correct patient, procedure, equipment, ict customer support officer and site/side marked as | | required. CLABSI Prevention Bundle: Skin preparation: Chloraprep | | Protective barrier: Cap, Mask, Hand scrub, Gown, Gloves and Full body drape. Cap | | and mask worn by assistive personnel.Sterile Ultrasound techniques (sterile gel, and | | sterile probe cover) used Dressing: Dressing applied | | prior of removal of full barrier drape and hemostatic agent applied Procedure | | Details Patient was placed in appropriate position The vascular anatomy was identified | | by Ultrasound Guidance.wire through the needle, introducer over the wire, then | | catheter through the introducer Tip was placed using TPS (Tip Positioning System). . | | A non-tunneled PICC Double lumen 5 Fr was placed in the Left Arm area Brachial | | vein. Catheter lot number: [id number] with a length of 55 cm was selected and | | trimmed 8 to a remaining length of 47 cm All ports aspirated for blood and | | flushed with saline Procedure comments: Accessed brachial vein threaded wire patient | | c/o nerve pain wire removed. Accessed vein higher in arm without problems. | | Power-injectable line: yes Attempts 2 attempt(s) were made Complications None | | PICC catheter tip location Chest radiograph ordered to verify placement and Line | | verified by radiograph Adjustments made after chest film obtained: none External | | measurement of catheter exposed: 5 cm. PICC catheter tip location: Distal SVC | | Estimated blood loss: <10mL | + + VAT: PICC INSERTION W/US (10/27/2017 12:21 PM) + + | Narrative | + + | See procedure note. | + + CAPILLARY BLOOD GLUCOSE (NO CHG), POC (10/27/2017 12:12 PM) + +---------+ + | Component | Value | Ref Range | + +---------+ + | BLOOD GLUCOSE, POC | 112 (H) | 70 - 99 mg/dL | + +---------+ + + + + | Specimen | Performing Laboratory | + + + | | [facility] [address] | | | [place] [address] | + + + 12 LEAD ECG (10/27/2017 8:40 AM) + + + + | Component | Value | Ref Range | + + + + | VENTRICULAR RATE | 70 | bpm | + + + + | ATRIAL RATE | 69 | ms | + + + + | P-R INTERVAL | 133 | ms | + + + + | P AXIS | 73 | deg | + + + + | QRS DURATION | 125 | ms | + + + + | QT | 434 | ms | + + + + | QTCB | 468 | ms | + + + + | R AXIS | 79 | deg | + + + + | T AXIS | 23 | deg | + + + + | ECG IMPRESSION | Sinus rhythm | | + + + + | ECG IMPRESSION | Right bundle branch block- ABNORMAL ECG - | | + + + + | ECG IMPRESSION | Electronically signed by: PAULO CAVAZOS | | | | 10-27-2017 10:38:44 | | + + + + + + + | Specimen | Performing Laboratory | + + + | | [facility] [address] [facility] [facility] | | | [place] [address] | + + + CAPILLARY BLOOD GLUCOSE (NO CHG), POC (10/27/2017 6:10 AM) + +-------+ + | Component | Value | Ref Range | + +-------+ + | BLOOD GLUCOSE, POC | 82 | 70 - 99 mg/dL | + +-------+ + + + + | Specimen | Performing Laboratory | + + + | | [facility] [address] [facility] | | | [place] [address] | + + + MAGNESIUM, PLASMA (10/27/2017 4:30 AM) + +-------+ + | Component | Value | Ref Range | + +-------+ + | MAGNESIUM,PLASMA | 1.9 | 1.6 - 2.6 mg/dL | + +-------+ + + + + | Specimen | Performing Laboratory | + + + | Blood | [facility], CORE [address] | | | [place] [address] | + + + + + | Narrative | + + | Reference range change effective 12/11/16. | + + RENAL FUNCTION SET (NA,K,CL,CO2,BUN,CREAT,GLUC,CA,PHOS,ALB ) (10/27/2017 4:30 AM) + + + + | Component | Value | Ref Range | + + + + | GLUCOSE, PLASMA | 96 | 70 - 99 mg/dL | | (LAB) | | | + + + + | BUN, PLASMA (LAB) | 13 | 6 - 20 mg/dL | + + + + | CREATININE PLASMA | 0.49 (L) | 0.70 - 1.30 mg/dL | | (LAB) | | | + + + + | EGFR - | >60 | >60 mL/min | | GABONESE | | | + + + + | EGFR NON | >60 | >60 mL/min | | -GABONESE | | | + + + + | SODIUM, PLASMA (LAB) | 141 | 136 - 145 mmol/L | + + + + | POTASSIUM, PLASMA | 3.9 | 3.4 - 5.0 mmol/L | | (LAB) | | | + + + + | CHLORIDE, PLASMA | 106 | 97 - 108 mmol/L | | (LAB) | | | + + + + | TOTAL CO2, PLASMA | 29 | 21 - 32 mmol/L | | (LAB) | | | + + + + | CALCIUM, PLASMA | 8.9 | 8.6 - 10.2 mg/dL | | (LAB) | | | + + + + | CALCIUM(ALB | 9.9 | 8.6 - 10.2 mg/dL | | CORRECTED) | | | + + + + | ALBUMIN, PLASMA | 2.7 (L) | 3.5 - 4.7 g/dL | | (LAB) | | | + + + + | PHOSPHORUS, PLASMA | 3.2 | 2.4 - 4.7 mg/dL | | (LAB) | | | + + + + | POTASSIUM CMNT | No Hemo | | + + + + | ANION GAP | 6 | 4 - 11 mmol/L | + + + + | ANION GAP(ALB | 9 | 4 - 11 mmol/L | | CORRECTED) | | | + + + + + + + | Specimen | Performing Laboratory | + + + | Blood | [facility], CORE [address] [facility] | | | [place] [address] | + + + + + | Narrative | + + | GFR is estimated using the MDRD equation recommended by the National Kidney Disease | | Education Program. Estimated GFR Interpretive Information: <60 mL/min/1.73 sq | | m Chronic Kidney Disease <15 mL/min/1.73 sq | | m Kidney Failure Estimated GFR greater that 60 mL/min/1.73 | | sq m is of limited clinical value. The MDRD equation is not valid in the following | | situations: - Patients under 18 years of age - Severe malnutrition or obesity - | | Vegetarian diet - Rapidly changing kidney function - Amputees, paraplegics, or other | | muscle-wasting diseses | + + CAPILLARY BLOOD GLUCOSE (NO CHG), POC (10/27/2017 12:30 AM) + +---------+ + | Component | Value | Ref Range | + +---------+ + | BLOOD GLUCOSE, POC | 119 (H) | 70 - 99 mg/dL | + +---------+ + + + + | Specimen | Performing Laboratory | + + + | | [facility] [place] [address] | | | [place] [address] | + + + CAPILLARY BLOOD GLUCOSE (NO CHG), POC (10/26/2017 11:58 AM) + +---------+ + | Component | Value | Ref Range | + +---------+ + | BLOOD GLUCOSE, POC | 110 (H) | 70 - 99 mg/dL | + +---------+ + + + + | Specimen | Performing Laboratory | + + + | | [facility], [facility] [address] | | | [place] [address] | + + + CAPILLARY BLOOD GLUCOSE (NO CHG), POC (10/26/2017 5:57 AM) + +---------+ + | Component | Value | Ref Range | + +---------+ + | BLOOD GLUCOSE, POC | 102 (H) | 70 - 99 mg/dL | + +---------+ + + + + | Specimen | Performing Laboratory | + + + | | [facility] [place] [address] | | | [place] [address] | + + + MAGNESIUM, PLASMA (10/26/2017 5:13 AM) + +-------+ + | Component | Value | Ref Range | + +-------+ + | MAGNESIUM,PLASMA | 1.6 | 1.6 - 2.6 mg/dL | + +-------+ + + + + | Specimen | Performing Laboratory | + + + | Blood | [facility], CORE [address] [facility] | | | [place] [address] | + + + + + | Narrative | + + | Reference range change effective 12/11/16. | + + RENAL FUNCTION SET (NA,K,CL,CO2,BUN,CREAT,GLUC,CA,PHOS,ALB ) (10/26/2017 5:13 AM) + + + + | Component | Value | Ref Range | + + + + | GLUCOSE, PLASMA | 107 (H) | 70 - 99 mg/dL | | (LAB) | | | + + + + | BUN, PLASMA (LAB) | 4 (L) | 6 - 20 mg/dL | + + + + | CREATININE PLASMA | 0.52 (L) | 0.70 - 1.30 mg/dL | | (LAB) | | | + + + + | EGFR - | >60 | >60 mL/min | | GABONESE | | | + + + + | EGFR NON | >60 | >60 mL/min | | -GABONESE | | | + + + + | SODIUM, PLASMA (LAB) | 143 | 136 - 145 mmol/L | + + + + | POTASSIUM, PLASMA | 3.4 | 3.4 - 5.0 mmol/L | | (LAB) | | | + + + + | CHLORIDE, PLASMA | 105 | 97 - 108 mmol/L | | (LAB) | | | + + + + | TOTAL CO2, PLASMA | 30 | 21 - 32 mmol/L | | (LAB) | | | + + + + | CALCIUM, PLASMA | 8.3 (L) | 8.6 - 10.2 mg/dL | | (LAB) | | | + + + + | CALCIUM(ALB | 9.5 | 8.6 - 10.2 mg/dL | | CORRECTED) | | | + + + + | ALBUMIN, PLASMA | 2.5 (L) | 3.5 - 4.7 g/dL | | (LAB) | | | + + + + | PHOSPHORUS, PLASMA | 3.4 | 2.4 - 4.7 mg/dL | | (LAB) | | | + + + + | POTASSIUM CMNT | No Hemo | | + + + + | ANION GAP | 8 | 4 - 11 mmol/L | + + + + | ANION GAP(ALB | 11 | 4 - 11 mmol/L | | CORRECTED) | | | + + + + + + + | Specimen | Performing Laboratory | + + + | Blood | [facility] [address] | | | [place] [address] | + + + + + | Narrative | + + | GFR is estimated using the MDRD equation recommended by the National Kidney Disease | | Education Program. Estimated GFR Interpretive Information: <60 mL/min/1.73 sq | | m Chronic Kidney Disease <15 mL/min/1.73 sq | | m Kidney Failure Estimated GFR greater that 60 mL/min/1.73 | | sq m is of limited clinical value. The MDRD equation is not valid in the following | | situations: - Patients under 18 years of age - Severe malnutrition or obesity - | | Vegetarian diet - Rapidly changing kidney function - Amputees, paraplegics, or other | | muscle-wasting diseses | + + CAPILLARY BLOOD GLUCOSE (NO CHG), POC (10/26/2017 12:58 AM) + +---------+ + | Component | Value | Ref Range | + +---------+ + | BLOOD GLUCOSE, POC | 103 (H) | 70 - 99 mg/dL | + +---------+ + + + + | Specimen | Performing Laboratory | + + + | | [facility] [address] | | | [place] [address] | + + + BASIC METABOLIC SET (NA, K, CL, TCO2, BUN, CR, GLU, CA) (10/25/2017 12:40 PM) + + + + | Component | Value | Ref Range | + + + + | GLUCOSE, PLASMA | 106 (H) | 70 - 99 mg/dL | | (LAB) | | | + + + + | BUN, PLASMA (LAB) | 3 (L) | 6 - 20 mg/dL | + + + + | CREATININE PLASMA | 0.56 (L) | 0.70 - 1.30 mg/dL | | (LAB) | | | + + + + | EGFR - | >60 | >60 mL/min | | GABONESE | | | + + + + | EGFR NON | >60 | >60 mL/min | | -GABONESE | | | + + + + | SODIUM, PLASMA (LAB) | 140 | 136 - 145 mmol/L | + + + + | POTASSIUM, PLASMA | 3.2 (L) | 3.4 - 5.0 mmol/L | | (LAB) | | | + + + + | CHLORIDE, PLASMA | 105 | 97 - 108 mmol/L | | (LAB) | | | + + + + | TOTAL CO2, PLASMA | 30 | 21 - 32 mmol/L | | (LAB) | | | + + + + | CALCIUM, PLASMA | 8.2 (L) | 8.6 - 10.2 mg/dL | | (LAB) | | | + + + + | ANION GAP | 5 | 4 - 11 mmol/L | + + + + | POTASSIUM CMNT | No Hemo | | + + + + + + + | Specimen | Performing Laboratory | + + + | Blood | [facility], CORE [address] [facility] | | | [place] [address] | + + + + + | Narrative | + + | GFR is estimated using the MDRD equation recommended by the National Kidney Disease | | Education Program. Estimated GFR Interpretive Information: <60 mL/min/1.73 sq | | m Chronic Kidney Disease <15 mL/min/1.73 sq | | m Kidney Failure Estimated GFR greater that 60 mL/min/1.73 | | sq m is of limited clinical value. The MDRD equation is not valid in the following | | situations: - Patients under 18 years of age - Severe malnutrition or obesity - | | Vegetarian diet - Rapidly changing kidney function - Amputees, paraplegics, or other | | muscle-wasting diseses | + + CAPILLARY BLOOD GLUCOSE (NO CHG), POC (10/25/2017 11:53 AM) + +-------+ + | Component | Value | Ref Range | + +-------+ + | BLOOD GLUCOSE, POC | 87 | 70 - 99 mg/dL | + +-------+ + + + + | Specimen | Performing Laboratory | + + + | | [facility] [address] | | | [place] [address] | + + + 12 LEAD ECG (10/25/2017 11:03 AM) + + + + | Component | Value | Ref Range | + + + + | VENTRICULAR RATE | 53 | bpm | + + + + | ATRIAL RATE | 54 | ms | + + + + | P-R INTERVAL | 135 | ms | + + + + | P AXIS | 72 | deg | + + + + | QRS DURATION | 133 | ms | + + + + | QT | 465 | ms | + + + + | QTCB | 439 | ms | + + + + | R AXIS | 84 | deg | + + + + | T AXIS | 26 | deg | + + + + | ECG IMPRESSION | Sinus bradycardia | | + + + + | ECG IMPRESSION | Right bundle branch block- ABNORMAL ECG - | | + + + + | ECG IMPRESSION | Electronically signed by: GABRIELA VANN | | | | 10-25-2017 11:13:41 | | + + + + + + + | Specimen | Performing Laboratory | + + + | | [facility] [address] [place] [address] | | | [place] [address] | + + + CAPILLARY BLOOD GLUCOSE (NO CHG), POC (10/25/2017 3:35 AM) + +-------+ + | Component | Value | Ref Range | + +-------+ + | BLOOD GLUCOSE, POC | 87 | 70 - 99 mg/dL | + +-------+ + + + + | Specimen | Performing Laboratory | + + + | | [facility] [place], [facility] [address] | | | [place] [address] | + + + 12 LEAD ECG (10/24/2017 6:20 PM) + + + + | Component | Value | Ref Range | + + + + | VENTRICULAR RATE | 63 | bpm | + + + + | ATRIAL RATE | 64 | ms | + + + + | P-R INTERVAL | 138 | ms | + + + + | P AXIS | 50 | deg | + + + + | QRS DURATION | 132 | ms | + + + + | QT | 445 | ms | + + + + | QTCB | 458 | ms | + + + + | R AXIS | 77 | deg | + + + + | T AXIS | 4 | deg | + + + + | ECG IMPRESSION | Sinus rhythm | | + + + + | ECG IMPRESSION | Right bundle branch block | | + + + + | ECG IMPRESSION | Borderline ST elevation, lateral leads- | | | | ABNORMAL ECG - | | + + + + | ECG IMPRESSION | Electronically signed by: GABRIELA VANN | | | | 10-25-2017 10:25:24 | | + + + + + + + | Specimen | Performing Laboratory | + + + | | [facility] [address] [facility] [facility] [facility] | | | [place] [address] | + + + CALCIUM, IONIZED, WHOLE BLOOD (10/24/2017 4:58 PM) + + + + | Component | Value | Ref Range | + + + + | MAHOGANY ICA, WHOLE BLD | 1.13 (L) | 1.14 - 1.32 mmol/L | + + + + | PH, WHOLE BLOOD | 7.39 | | + + + + | ICA, CORRECTED TO PH | 1.12 (L) | 1.14 - 1.28 mmol/L | | 7.4 | | | + + + + + + + | Specimen | Performing Laboratory | + + + | Blood | [facility], [facility] [address] | | | [place], [place] [address] | + + + PREALBUMIN (10/24/2017 4:50 PM) + + + + | Component | Value | Ref Range | + + + + | PREALBUMIN | 14.7 (L) | 17.0 - 42.0 mg/dL | + + + + + + + | Specimen | Performing Laboratory | + + + | Blood | [facility] [place] [address] [place], [place] | | | [address] | + + + C-REACTIVE PROTEIN (10/24/2017 4:45 PM) + + + + | Component | Value | Ref Range | + + + + | C-REACTIVE PROTEIN | 16.0 (H) | <10.0 mg/L | + + + + + + + | Specimen | Performing Laboratory | + + + | Blood | [facility], C[facility] [address] [facility] [address] | | | [place] [address] | + + + + + | Narrative | + + | New method, new reference range and new reporting units as of 09/30/2013. | + + ALT, PLASMA (10/24/2017 4:45 PM) + +-------+ + | Component | Value | Ref Range | + +-------+ + | ALT (SGPT) | 20 | <=60 U/L | + +-------+ + + + + | Specimen | Performing Laboratory | + + + | Blood | [facility], CORE [address] [facility] | | | [place] [address] | + + + TRIGLYCERIDES, PLASMA (10/24/2017 4:45 PM) + +-------+ + | Component | Value | Ref Range | + +-------+ + | TRIGLYCERIDES | 93 | <150 mg/dL | + +-------+ + + + + | Specimen | Performing Laboratory | + + + | Blood | [facility], CORE [address] | | | [place], [place] [address] | + + + + + | Narrative | + + | Triglyceride Reference Range: Normal: <150 mg/dL | | Borderline High: 150-199 mg/dL High: 200-499 mg/dL | | Very High: >=500 mg/dL | + + AST, PLASMA (10/24/2017 4:45 PM) + +---------+ + | Component | Value | Ref Range | + +---------+ + | AST(SGOT) | 14 | <=41 U/L | + +---------+ + | AST CMNT | No Hemo | | + +---------+ + + + + | Specimen | Performing Laboratory | + + + | Blood | [facility], CORE [address] [facility] | | | [place] [address] | + + + ALKALINE PHOSPHATASE, PLASMA (10/24/2017 4:45 PM) + +---------+ + | Component | Value | Ref Range | + +---------+ + | ALK PHOS | 200 (H) | 56 - 119 U/L | + +---------+ + + + + | Specimen | Performing Laboratory | + + + | Blood | [facility], CORE [address] [place] [address] | | | [place] [address] | + + + BILIRUBIN DIRECT (10/24/2017 4:45 PM) + +---------+ + | Component | Value | Ref Range | + +---------+ + | BILIRUBIN DIRECT | 0.1 | 0.0 - 0.3 mg/dL | + +---------+ + | BILI D CMNT | No Hemo | | + +---------+ + + + + | Specimen | Performing Laboratory | + + + | Blood | [facility], CORE [address] [facility] | | | [place] [address] | + + + BILIRUBIN TOTAL (10/24/2017 4:45 PM) + +---------+ + | Component | Value | Ref Range | + +---------+ + | BILIRUBIN TOTAL | 0.3 | 0.3 - 1.2 mg/dL | + +---------+ + | BRET T CMNT | No Hemo | | + +---------+ + + + + | Specimen | Performing Laboratory | + + + | Blood | [facility], C[facility] [address] [place] [address] | | | [place], [place] [address] | + + + PHOSPHORUS, PLASMA (10/24/2017 4:45 PM) + +-------+ + | Component | Value | Ref Range | + +-------+ + | PHOSPHORUS, PLASMA | 3.2 | 2.4 - 4.7 mg/dL | | (LAB) | | | + +-------+ + + + + | Specimen | Performing Laboratory | + + + | Blood | [facility], CORE [address] [place] [address] | | | [place] [address] | + + + ALBUMIN, PLASMA (10/24/2017 4:45 PM) + +---------+ + | Component | Value | Ref Range | + +---------+ + | ALBUMIN, PLASMA | 2.6 (L) | 3.5 - 4.7 g/dL | | (LAB) | | | + +---------+ + + + + | Specimen | Performing Laboratory | + + + | Blood | [facility], [facility] [address] [place] [address] | | | [place] [address] | + + + MAGNESIUM, PLASMA (10/24/2017 4:45 PM) + +-------+ + | Component | Value | Ref Range | + +-------+ + | MAGNESIUM,PLASMA | 1.7 | 1.6 - 2.6 mg/dL | + +-------+ + + + + | Specimen | Performing Laboratory | + + + | Blood | [facility] [address] [facility] | | | [place] [address] | + + + + + | Narrative | + + | Reference range change effective 12/11/16. | + + BASIC METABOLIC SET (NA, K, CL, TCO2, BUN, CR, GLU, CA) (10/24/2017 4:45 PM) + + + + | Component | Value | Ref Range | + + + + | GLUCOSE, PLASMA | 111 (H) | 70 - 99 mg/dL | | (LAB) | | | + + + + | BUN, PLASMA (LAB) | 5 (L) | 6 - 20 mg/dL | + + + + | CREATININE PLASMA | 0.53 (L) | 0.70 - 1.30 mg/dL | | (LAB) | | | + + + + | EGFR - | >60 | >60 mL/min | | GABONESE | | | + + + + | EGFR NON | >60 | >60 mL/min | | -GABONESE | | | + + + + | SODIUM, PLASMA (LAB) | 141 | 136 - 145 mmol/L | + + + + | POTASSIUM, PLASMA | 3.3 (L) | 3.4 - 5.0 mmol/L | | (LAB) | | | + + + + | CHLORIDE, PLASMA | 104 | 97 - 108 mmol/L | | (LAB) | | | + + + + | TOTAL CO2, PLASMA | 29 | 21 - 32 mmol/L | | (LAB) | | | + + + + | CALCIUM, PLASMA | 8.2 (L) | 8.6 - 10.2 mg/dL | | (LAB) | | | + + + + | ANION GAP | 8 | 4 - 11 mmol/L | + + + + | POTASSIUM CMNT | No Hemo | | + + + + + + + | Specimen | Performing Laboratory | + + + | Blood | [facility], CORE [address] [place] [address] RD | | | [place] [address] | + + + + + | Narrative | + + | GFR is estimated using the MDRD equation recommended by the National Kidney Disease | | Education Program. Estimated GFR Interpretive Information: <60 mL/min/1.73 sq | | m Chronic Kidney Disease <15 mL/min/1.73 sq | | m Kidney Failure Estimated GFR greater that 60 mL/min/1.73 | | sq m is of limited clinical value. The MDRD equation is not valid in the following | | situations: - Patients under 18 years of age - Severe malnutrition or obesity - | | Vegetarian diet - Rapidly changing kidney function - Amputees, paraplegics, or other | | muscle-wasting diseses | + + PICC LINE (10/24/2017 4:01 PM) + + | Narrative | + + | Farhan Sosa RN 10/24/2017 4:05 PM PICC LINE Performed by: JAMI | | FARHAN Authorized by: CHAZ MUNOZ PICC/Midline Insertion Procedure Note | | Indications:TPN Procedure location: Unit:[facility] Room: 4 Providers: Attending name: | | Attending physically present: No PICC Nurse name: Nery Sosa Pre-Procedure Consent: | | written consent obtained Consent given by: Next of kin Patient identity confirmed | | per protocol: Yes Team Pause: Immediatly prior to the procedure a pause per protocol | | was called. A pause verifies correct patient, procedure, equipment, ict customer support officer | | and site/side marked as required. CLABSI Prevention Bundle: Skin | | preparation: Chloraprep Protective barrier: Cap, Mask, Hand scrub, Gown, | | Gloves and Full body drape..Sterile Ultrasound techniques (sterile gel, and sterile | | probe cover) used Dressing: Dressing applied prior | | of removal of full barrier drape and hemostatic agent applied Procedure Details | | Patient was placed in appropriate position The vascular anatomy was identified by | | Ultrasound Guidance.wire through the needle, introducer over the wire, then catheter | | through the introducer Tip was placed using TLS (Tip Locating System) and TPS (Tip | | Positioning System). . A non-tunneled PICC Double lumen 5 Fr was placed in the | | Right Arm area Basilic vein. Catheter lot number: [id number] with a length of 55 cm | | was selected and trimmed 8 to a remaining length of 47 cm All ports | | aspirated for blood and flushed with saline Power-injectable line: yes Attempts 1 | | attempt(s) were made Complications None PICC catheter tip location Chest | | radiograph ordered to verify placement and Line verified by radiograph Adjustments | | made after chest film obtained: none External measurement of catheter exposed: 5 cm. | | PICC catheter tip location: Cavo-Atrial Junction Estimated blood loss: <10mL | + + X-RAY PORTABLE CHEST 1 VIEW (10/24/2017 3:26 PM) + + + | Specimen | Performing Laboratory | + + + | | [facility] VOICE RECOGNITION 2 | + + + + + | Narrative | + + | EXAM: UT CHEST 1 VIEW HISTORY: PICC placed-pt ready. COMPARISON: October 12, | | 2018 FINDINGS: The right sided PICC terminates within the region of the | | superior cavoatrial junction. Cardiac contours are normal. Mediastinal contours are | | normal. Minimal streaky retrocardiac atelectasis is present. There is no pleural | | effusion. There is no pneumothorax. A right lateral fifth rib deformity is noted. A | | healing left proximal humeral fracture is unchanged. IMPRESSION: The PICC | | terminates within the region of the superior cavoatrial junction. I have personally | | reviewed the images and, if necessary, edited the report. I agree with the report as now | | presented. Final signature: Julian Perkins MD 10/24/2017 3:42 PM Preliminary: | | Julian Perkins MD Dictation initiated: Julian Perkins MD 10/24/2017 3:40 PM | + + + + | Procedure Note | + + | 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, Radiant Res In Interface - 10/24/2017 3:43 PM PDT EXAM: UT CHEST 1 | | VIEW HISTORY: PICC [...] MD 10/24/2017 3:40 PM | + + VAT: PICC INSERTION W/US (10/24/2017 1:56 PM) + + | Narrative | + + | See procedure note. | + + CAPILLARY BLOOD GLUCOSE (NO CHG), POC (10/24/2017 12:21 PM) + +-------+ + | Component | Value | Ref Range | + +-------+ + | BLOOD GLUCOSE, POC | 96 | 70 - 99 mg/dL | + +-------+ + + + + | Specimen | Performing Laboratory | + + + | | [facility], [facility] [address] | | | [place] [address] | + + + PROCEDURE NOTE (10/24/2017 12:06 PM) + + | Narrative | + + | Gunjan Kelly MD 10/24/2017 12:18 PM Operative Note - Trauma Surgery | | Patient Name: [place] Temple Date of Surgery: 10/24/2017 | | Attending : Monster Rucker MD Resident: Gunjan Kelly MD Preoperative Diagnosis: | | Gastrostomy tube dysfunction Need for nutritional support Postoperative | | Diagnosis: Gastrostomy tube displacement Presence of new gastrostomy tube Need for | | nutritional support Procedure: 1. Esophagogastroscopy 2. PEG | | Indications: Berlin Temple is a 67 y.o. male with complex surgical history following | | traumatic injury. There was concern that medication being given via his extant PEG | | was coming back out his JERONIMO drain, prompting further evaluation. He was therefore | | indicated for the above procedure. Findings: No evidence of extant tube within | | the stomach Leakage of insufflation consistent with pinpoint hole in stomach No gross | | lesions/defects in stomach New PEG placed Procedure in Detail: Following GETA, the | | abdomen was prepped and draped in the normal sterile fashion. Prior to beginning | | the procedure, a time out was held where the patient, site, and procedure were | | verified by all members of the operative staff. Prior to incision, only scheduled | | antibiotic was given. Flexible endoscopy was performed using the olympus | | scope. After advancing through the esophagus the stomach was entered. The | | pylorus was identified and the stomach examined. There was a scar on the anterior | | wall consistent with prior gastrostomy tube placement; there was no defect or other | | evidence of the PEG tube in the stomach. An area on the anterior wall lateral to | | the prior access sites was identified with one to one motion and good | | transillumination. The stomach was accessed at this site under direct vision using | | an angiocath. A wire was passed through this access point and gasped using the | | endoscope. This withdrawn through the mouth. The wire was then secured to the | | new gastrostomy tube which was then advanced back into the stomach with the tube | | through the abdominal wall under direct endoscopic vision. The bumped spun freely | | upon placement. The depth of the tube at the skin was 6cm. Securing suture and | | dessings were applied. At the conclusion of the case all counts were correct. The | | patient was awoken from GETA, extubated, and transferred to the PACU in stable | | condition. I certify that Dr. Rucker was present for the critical portions of the | | procedure. Complications: None apparent EBL: Minimal Fluid: Crystalloid | | Specimens: None Lines: New: PEG Old: JERONIMO, PIVs Drains: None new | | Postoperative Plan: PEG to gravity Concern for leakage of insufflated air consistent | | with ongoing (though minor) leak from old gastrostomy site, so NO feeds or | | medications via tube at this time. Will consider in 48hrs pending clinical | | status. May obtain CT of A/P prior to use given extensive reoperative history. | | Will need PICC and TPN for nutritional support at this time Binder to remain JERONIMO to | | remain No changes to abx plan Gunjan Kelly MD Surgical Critical Care, PGY7 | | Pager: [phone] | + + CAPILLARY BLOOD GLUCOSE (NO CHG), POC (10/24/2017 10:31 AM) + +-------+ + | Component | Value | Ref Range | + +-------+ + | BLOOD GLUCOSE, POC | 85 | 70 - 99 mg/dL | + +-------+ + + + + | Specimen | Performing Laboratory | + + + | | [facility], PO[facility] CARE TESTS [address] | | | [place] [address] | + + + CAPILLARY BLOOD GLUCOSE (NO CHG), POC (10/24/2017 8:50 AM) + +-------+ + | Component | Value | Ref Range | + +-------+ + | BLOOD GLUCOSE, POC | 98 | 70 - 99 mg/dL | + +-------+ + + + + | Specimen | Performing Laboratory | + + + | | [facility], POINT OF CARE TESTS [address] | | | [place] [address] | + + + RENAL FUNCTION SET (NA,K,CL,CO2,BUN,CREAT,GLUC,CA,PHOS,ALB ) (10/24/2017 5:08 AM) + + + + | Component | Value | Ref Range | + + + + | GLUCOSE, PLASMA | 93 | 70 - 99 mg/dL | | (LAB) | | | + + + + | BUN, PLASMA (LAB) | 7 | 6 - 20 mg/dL | + + + + | CREATININE PLASMA | 0.58 (L) | 0.70 - 1.30 mg/dL | | (LAB) | | | + + + + | EGFR - | >60 | >60 mL/min | | GABONESE | | | + + + + | EGFR NON | >60 | >60 mL/min | | -GABONESE | | | + + + + | SODIUM, PLASMA (LAB) | 138 | 136 - 145 mmol/L | + + + + | POTASSIUM, PLASMA | 3.4 | 3.4 - 5.0 mmol/L | | (LAB) | | | + + + + | CHLORIDE, PLASMA | 104 | 97 - 108 mmol/L | | (LAB) | | | + + + + | TOTAL CO2, PLASMA | 25 | 21 - 32 mmol/L | | (LAB) | | | + + + + | CALCIUM, PLASMA | 8.5 (L) | 8.6 - 10.2 mg/dL | | (LAB) | | | + + + + | CALCIUM(ALB | 9.6 | 8.6 - 10.2 mg/dL | | CORRECTED) | | | + + + + | ALBUMIN, PLASMA | 2.6 (L) | 3.5 - 4.7 g/dL | | (LAB) | | | + + + + | PHOSPHORUS, PLASMA | 3.4 | 2.4 - 4.7 mg/dL | | (LAB) | | | + + + + | POTASSIUM CMNT | No Hemo | | + + + + | ANION GAP | 9 | 4 - 11 mmol/L | + + + + | ANION GAP(ALB | 12 (H) | 4 - 11 mmol/L | | CORRECTED) | | | + + + + + + + | Specimen | Performing Laboratory | + + + | Blood | [facility], CORE [address] | | | [place] [address] | + + + + + | Narrative | + + | GFR is estimated using the MDRD equation recommended by the National Kidney Disease | | Education Program. Estimated GFR Interpretive Information: <60 mL/min/1.73 sq | | m Chronic Kidney Disease <15 mL/min/1.73 sq | | m Kidney Failure Estimated GFR greater that 60 mL/min/1.73 | | sq m is of limited clinical value. The MDRD equation is not valid in the following | | situations: - Patients under 18 years of age - Severe malnutrition or obesity - | | Vegetarian diet - Rapidly changing kidney function - Amputees, paraplegics, or other | | muscle-wasting diseses | + + MAGNESIUM, PLASMA (10/24/2017 5:08 AM) + +-------+ + | Component | Value | Ref Range | + +-------+ + | MAGNESIUM,PLASMA | 1.7 | 1.6 - 2.6 mg/dL | + +-------+ + + + + | Specimen | Performing Laboratory | + + + | Blood | [facility], CORE [address] | | | [place] [address] | + + + + + | Narrative | + + | Reference range change effective 12/11/16. | + + CARDIOLOGY (10/24/2017)CAPILLARY BLOOD GLUCOSE (NO CHG), POC (10/23/2017 9:32 PM) + +-------+ + | Component | Value | Ref Range | + +-------+ + | BLOOD GLUCOSE, POC | 76 | 70 - 99 mg/dL | + +-------+ + + + + | Specimen | Performing Laboratory | + + + | | [facility], POINT [facility] CARE TESTS [address] | | | [place] [address] | + + + CBC AND AUTO DIFF (10/23/2017 11:39 AM) + + + + | Component | Value | Ref Range | + + + + | WHITE CELL COUNT | 9.45 | 3.50 - 10.80 K/cu mm | + + + + | RED CELL COUNT | 3.51 (L) | 4.50 - 6.00 M/cu mm | + + + + | HEMOGLOBIN | 10.2 (L) | 13.5 - 17.5 g/dL | + + + + | HEMATOCRIT | 33.0 (L) | 41.0 - 53.0 % | + + + + | MCV | 94.0 | 80.0 - 100.0 fL | + + + + | MCHC | 30.9 (L) | 32.0 - 36.0 g/dL | + + + + | RDW SD | 55.8 (H) | 35.1 - 46.3 fL | + + + + | PLATELET COUNT | 345 | 150 - 400 K/cu mm | + + + + | MPV | 8.3 (L) | 9.7 - 12.3 fL | + + + + | NRBC% | 0.0 | 0.0 - 0.3 % | + + + + | NRBC# | 0.00 | 0.00 - 0.02 K/cu mm | + + + + | NEUTROPHIL % | 77.0 (H) | 50.0 - 70.0 % | + + + + | LYMPHOCYTE % | 13.7 (L) | 18.0 - 42.0 % | + + + + | MONOCYTE % | 6.2 | 3.5 - 9.0 % | + + + + | EOS % | 2.1 | 1.0 - 3.0 % | + + + + | BASO % | 0.4 | 0.0 - 2.0 % | + + + + | IG% | 0.6Comment: Increased immature granulocytes | 0.0 - 1.0 % | | | (IG) define a left shift. Immature | | | | granulocytes (IG) are an automated count of | | | | metamyelocytes, myelocytes and | | | | promyelocytes. Bands are not included in | | | | the IG count. Bands are included in the | | | | neutrophil count. | | + + + + | NEUTROPHIL # | 7.27 | 1.80 - 7.70 K/cu mm | + + + + | LYMPHOCYTE # | 1.29 | 1.00 - 4.80 K/cu mm | + + + + | MONOCYTE # | 0.59 | 0.10 - 0.90 K/cu mm | + + + + | EOS # | 0.20 | 0.00 - 0.50 K/cu mm | + + + + | BASO # | 0.04 | 0.00 - 0.10 K/cu mm | + + + + | IG# | 0.06 | 0.00 - 0.10 K/cu mm | + + + + + + + | Specimen | Performing Laboratory | + + + | Blood | [facility], CORE [address] | | | [place] [address] | + + + + + | Narrative | + + | New pediatric reference ranges for Lymphocyte % in effect October 10, 2017. New | | reference ranges for MCV, MCHC, PLT, IG% and IG# effective 09/05/2017 Increased | | immature granulocytes (IG) define a left shift. Immature granulocytes (IG) are an | | automated count of metamyelocytes, myelocytes and promyelocytes. Bands are not included | | in the IG count. Bands are included in the neutrophil count. | + + RENAL FUNCTION SET (NA,K,CL,CO2,BUN,CREAT,GLUC,CA,PHOS,ALB ) (10/23/2017 11:39 AM) + + + + | Component | Value | Ref Range | + + + + | GLUCOSE, PLASMA | 85 | 70 - 99 mg/dL | | (LAB) | | | + + + + | BUN, PLASMA (LAB) | 7 | 6 - 20 mg/dL | + + + + | CREATININE PLASMA | 0.69 (L) | 0.70 - 1.30 mg/dL | | (LAB) | | | + + + + | EGFR - | >60 | >60 mL/min | | GABONESE | | | + + + + | EGFR NON | >60 | >60 mL/min | | -GABONESE | | | + + + + | SODIUM, PLASMA (LAB) | 138 | 136 - 145 mmol/L | + + + + | POTASSIUM, PLASMA | 3.9 | 3.4 - 5.0 mmol/L | | (LAB) | | | + + + + | CHLORIDE, PLASMA | 103 | 97 - 108 mmol/L | | (LAB) | | | + + + + | TOTAL CO2, PLASMA | 27 | 21 - 32 mmol/L | | (LAB) | | | + + + + | CALCIUM, PLASMA | 8.6 | 8.6 - 10.2 mg/dL | | (LAB) | | | + + + + | CALCIUM(ALB | 9.6 | 8.6 - 10.2 mg/dL | | CORRECTED) | | | + + + + | ALBUMIN, PLASMA | 2.7 (L) | 3.5 - 4.7 g/dL | | (LAB) | | | + + + + | PHOSPHORUS, PLASMA | 3.6 | 2.4 - 4.7 mg/dL | | (LAB) | | | + + + + | POTASSIUM CMNT | No Hemo | | + + + + | ANION GAP | 8 | 4 - 11 mmol/L | + + + + | ANION GAP(ALB | 11 | 4 - 11 mmol/L | | CORRECTED) | | | + + + + + + + | Specimen | Performing Laboratory | + + + | Blood | [facility], CORE [address] | | | [place] [address] | + + + + + | Narrative | + + | GFR is estimated using the MDRD equation recommended by the National Kidney Disease | | Education Program. Estimated GFR Interpretive Information: <60 mL/min/1.73 sq | | m Chronic Kidney Disease <15 mL/min/1.73 sq | | m Kidney Failure Estimated GFR greater that 60 mL/min/1.73 | | sq m is of limited clinical value. The MDRD equation is not valid in the following | | situations: - Patients under 18 years of age - Severe malnutrition or obesity - | | Vegetarian diet - Rapidly changing kidney function - Amputees, paraplegics, or other | | muscle-wasting diseses | + + CBC, WITH DIFFERENTIAL (10/23/2017 11:39 AM) + + + | Specimen | Performing Laboratory | + + + | Blood | | + + + + + | Narrative | + + | The following orders were created for panel order CBC, WITH DIFFERENTIAL. | | Procedure | | Abnormality Status | | --------- | | ------ CBC AND AUTO | | DIFF[[id number]] Abnormal Final | | result Please view results for these tests on the | | individual orders. | + + 12 LEAD ECG (10/23/2017 9:46 AM) + + + + | Component | Value | Ref Range | + + + + | VENTRICULAR RATE | 62 | bpm | + + + + | ATRIAL RATE | 63 | ms | + + + + | P-R INTERVAL | 135 | ms | + + + + | P AXIS | 81 | deg | + + + + | QRS DURATION | 125 | ms | + + + + | QT | 444 | ms | + + + + | QTCB | 452 | ms | + + + + | R AXIS | 80 | deg | + + + + | T AXIS | 28 | deg | + + + + | ECG IMPRESSION | Sinus rhythm | | + + + + | ECG IMPRESSION | Right bundle branch block- ABNORMAL ECG - | | + + + + | ECG IMPRESSION | Electronically signed by: GABRIELA VANN | | | | 10-23-2017 10:41:55 | | + + + + + + + | Specimen | Performing Laboratory | + + + | | [facility] [address] | | | [place] [address] | + + + IR GASTROSTOMY TUBE EXCHANGE (10/22/2017 2:42 PM) + + + | Specimen | Performing Laboratory | + + + | | [facility] VOICE RECOGNITION | + + + + + | Narrative | + + | Procedure: Gastrostomy tube exchange Primary attending gang knife fish chopper: Shade | | Bryn Goodwin Preoperative diagnosis: Malfunctioning Gastrostomy tube | | Postoperative diagnosis: Same Operations: Operation 1. Removal of existing | | Gastrostomy tube over a guide wire Operation 2. Placement of 24 Rwandan GABRIEL | | gastrostomy over guide wire No sedation was given. The patient was monitored by | | Christie Duncan RN. Intra-service start time: 14:10 Intra-service end time: 14:50 | | Indications: 67 year old male requires gastrostomy tube exchange for | | nutritional management due to reported rupture of the balloon of the gastrostomy tube. | | Procedure: The patient, procedure, and allergies were confirmed in the presence | | of the patient by the attending.The attending physician was present for the entire | | procedure. Written informed consent was obtained in a PARQ conference with the | | patient. The procedure was performed with intravenous sedation. The patient was | | prepped and draped in the usual manner. Contrast was injected in the gastrostomy | | catheter. The existing Gastrostomy tube was removed over a guide wire. Over a stiff | | glide wire the new 24 Rwandan gastrostomy tube was inserted. The position of the new | | tube was confirmed with contrast injection through both the gastric ports. The retention | | disc is at marker No. 6 on the catheter. The retention balloon was inflated with 8 ml | | of NS. Total fluoroscopic time: 1.2 minutes Findings: Pre-existing | | Gastrostomy tube is in the stomach. Replacement with new gastrostomy tube as described | | above. Of note the balloon of the removed gastrostomy tube was not ruptured or damaged. | | The 6 cm marker appeared optimal length for the new gastrostomy tube although the | | disk of the old gastrostomy tube was positioned at 8 cm in length. | | Impression: 1. Successful exchange for 24 Fr GABRIEL gastrostomy tube, fixed the disk at | | 6 cm. 2. The balloon of the removed gastrostomy tube was confirmed not broken. | | I have personally reviewed the images and, if necessary, edited the report. I | | agree with the report as now presented. | + + + + | Procedure Note | + + | 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, Radiant Res In Interface - 10/22/2017 4:59 PM PDT Procedure: | | Gastrostomy tube exchangePrimary attending gang knife fish chopper: Shade Goodwin | | BrynPreoperative diagnosis: Malfunctioning Gastrostomy tubePostoperative diagnosis: | | SameOperations:Operation 1. Removal of existing Gastrostomy tube over a guide | | wireOperation 2. Placement of 24 Rwandan GABRIEL gastrostomy over guide wireNo sedation was [...] glide wire the | | new 24 Rwandan gastrostomy tube was inserted. The position of [...] stiff g lide wire the new 24 Rwandan | |gastrostomy tube was inserted. The position [...] report as now presented. | + + VASC LAB VENOUS DUPLEX LOWER EXTREMITY BILAT COMP (10/22/2017 10:08 AM) + + + | Specimen | Performing Laboratory | + + + | | [facility] | + + + + + | Narrative | + + | Bilateral: The duplex scanner was used to examine the deep and superficial veins of | | the right and left lower extremities. The veins are patent bilaterally with normal flow | | and responses to augmentation and compression maneuvers and no thrombus is noted. | | Conclusions: A normal venous examination of the bilateral lower extremities. No venous | | thrombosis was detected. I have personally reviewed the images and, if | | necessary, edited the report. I agree with the report as now presented. | + + + + | Procedure Note | + + | 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, Kostas Casper In Interface - 10/22/2017 10:34 AM PDT [...] report as now presented. | + + 12 LEAD ECG (10/22/2017 9:45 AM) + + + + | Component | Value | Ref Range | + + + + | VENTRICULAR RATE | 60 | bpm | + + + + | ATRIAL RATE | 59 | ms | + + + + | P-R INTERVAL | 174 | ms | + + + + | P AXIS | 44 | deg | + + + + | QRS DURATION | 125 | ms | + + + + | QT | 450 | ms | + + + + | QTCB | 448 | ms | + + + + | R AXIS | 61 | deg | + + + + | T AXIS | 4 | deg | + + + + | ECG IMPRESSION | Sinus rhythm | | + + + + | ECG IMPRESSION | Right bundle branch block- ABNORMAL ECG - | | + + + + | ECG IMPRESSION | Electronically signed by: AJAY DE LOS SANTOS | | | | 10-22-2017 14:01:24 | | + + + + + + + | Specimen | Performing Laboratory | + + + | | [facility] [address] [place] [address] | | | [place] [address] | + + + CT ABDOMEN AND PELVIS W IV CONTRAST (10/22/2017 3:56 AM) + + + | Specimen | Performing Laboratory | + + + | | [facility] VOICE RECOGNITION 2 | + + + + + | Narrative | + + | EXAM: CT of the abdomen and pelvis WITH intravenous contrast. HISTORY: Evaluate | | for gastrostomy tube leak. COMPARISON: 10/12/2017 CT TECHNIQUE: CT of the | | abdomen and pelvis with non-ionic iodinated intravenous contrast. Coronal and sagittal | | reformats were generated and reviewed. FINDINGS: LOWER THORAX: Compared to | | 10/12/2017, left lower lobe consolidation has mostly resolved. Bibasilar atelectasis is | | noted. Otherwise, unremarkable. LIVER: Unremarkable. BILIARY: Tiny gallstone within | | the gallbladder. PANCREAS: Unremarkable. SPLEEN: Resolved perisplenic fluid. | | Posterior splenic cleft is again noted, likely representing a small laceration. Left | | upper quadrant tiny metallic density is again noted. ADRENALS: Stable bilateral adrenal | | nodularity. KIDNEYS/URETERS: Tiny punctate, nonobstructive right renal stone. PELVIC | | ORGANS/BLADDER: Unremarkable. GI TRACT: A gastrostomy tube is seen with the tip in | | the region of the greater sac, in proximity to but not definitely seen within the | | gastric body, however contrast is noted within the gastric fundus. The gastrostomy | | balloon is not inflated. PERITONEUM: An anterior abdominal surgical JERONIMO drain is in | | place within an irregular gas and fluid collection anterior to the gastric antrum (axial | | images 57 through 71). Enteric contrast is seen throughout this collection. Scattered | | residual pneumoperitoneum is noted. LYMPH NODES: No lymphadenopathy. VESSELS: | | Unremarkable. BONES AND SOFT TISSUES: An anterior abdominal incision wound is | | redemonstrated. A partially visualized intramedullary nail screw fixation of a proximal | | left femoral fracture is again seen. Multiple bilateral rib fractures, T12 vertebral | | body fracture, and pelvic fractures are again noted, similar to prior. IMPRESSION: | | Repositioned gastrostomy tube with contrast in the gastric fundus, confirming | | communication with the gastric lumen. Additional contrast filling of an irregular | | gas and fluid collection anterior to the gastric antrum with JERONIMO drain in place. This | | raises concern for intraperitoneal gastrostomy tube leak, possibly due to an | | underinflated gastrostomy tube balloon. Significant results were discussed with | | Dr. Talavera on 10/22/2017 4:30 AM by Dae Izaguirre MD. I have personally reviewed | | the images and, if necessary, edited the report. I agree with the report as now | | presented. Final signature: Juice Georges MD 10/22/2017 8:05 AM | | Preliminary: Dae Izaguirre MD Dictation initiated: Dae Izaguirre MD 10/22/2017 | | 4:15 AM | + + + + | Procedure Note [...] PERITONEUM: An anterior | | abdominal surgical JERONIMO drain is in place within an irregular [...] collection anterior to the gastric antrum with JERONIMO drain in | | place. This raises concern for intraperitoneal gastrostomy tube leak, possibly due to an | | underinflated gastrostomy tube balloon. Significant results were discussed with . | | Ilan on 10/22/2017 4:30 AM [...] anterior to the gastri c antrum with JERONIMO drain in place. This raises concern for [...] MD 10/22/2017 4:15 AM | + + CBC (HEMOGRAM) ONLY (10/22/2017 1:15 AM) + + + + | Component | Value | Ref Range | + + + + | WHITE CELL COUNT | 14.15 (H) | 3.50 - 10.80 K/cu mm | + + + + | RED CELL COUNT | 3.32 (L) | 4.50 - 6.00 M/cu mm | + + + + | HEMOGLOBIN | 9.9 (L) | 13.5 - 17.5 g/dL | + + + + | HEMATOCRIT | 30.6 (L) | 41.0 - 53.0 % | + + + + | MCV | 92.2 | 80.0 - 100.0 fL | + + + + | MCHC | 32.4 | 32.0 - 36.0 g/dL | + + + + | RDW SD | 55.3 (H) | 35.1 - 46.3 fL | + + + + | PLATELET COUNT | 383 | 150 - 400 K/cu mm | + + + + | MPV | 8.3 (L) | 9.7 - 12.3 fL | + + + + | NRBC% | 0.0 | 0.0 - 0.3 % | + + + + | NRBC# | 0.00 | 0.00 - 0.02 K/cu mm | + + + + + + + | Specimen | Performing Laboratory | + + + | Blood | [facility], [address] [facility] | | | [place] [address] | + + + + + | Narrative | + + | New reference ranges for MCV, MCHC, PLT, IG% and IG# effective 09/05/2017 | + + BASIC METABOLIC SET (NA, K, CL, TCO2, BUN, CR, GLU, CA) (10/22/2017 1:15 AM) + + + + | Component | Value | Ref Range | + + + + | GLUCOSE, PLASMA | 101 (H) | 70 - 99 mg/dL | | (LAB) | | | + + + + | BUN, PLASMA (LAB) | 10 | 6 - 20 mg/dL | + + + + | CREATININE PLASMA | 0.47 (L) | 0.70 - 1.30 mg/dL | | (LAB) | | | + + + + | EGFR - | >60 | >60 mL/min | | GABONESE | | | + + + + | EGFR NON | >60 | >60 mL/min | | -GABONESE | | | + + + + | SODIUM, PLASMA (LAB) | 142 | 136 - 145 mmol/L | + + + + | POTASSIUM, PLASMA | 3.6 | 3.4 - 5.0 mmol/L | | (LAB) | | | + + + + | CHLORIDE, PLASMA | 107 | 97 - 108 mmol/L | | (LAB) | | | + + + + | TOTAL CO2, PLASMA | 26 | 21 - 32 mmol/L | | (LAB) | | | + + + + | CALCIUM, PLASMA | 8.9 | 8.6 - 10.2 mg/dL | | (LAB) | | | + + + + | ANION GAP | 9 | 4 - 11 mmol/L | + + + + | POTASSIUM CMNT | No Hemo | | + + + + + + + | Specimen | Performing Laboratory | + + + | Blood | [facility], C[address] [place] [address] | | | [place] [address] | + + + + + | Narrative | + + | GFR is estimated using the MDRD equation recommended by the National Kidney Disease | | Education Program. Estimated GFR Interpretive Information: <60 mL/min/1.73 sq | | m Chronic Kidney Disease <15 mL/min/1.73 sq | | m Kidney Failure Estimated GFR greater that 60 mL/min/1.73 | | sq m is of limited clinical value. The MDRD equation is not valid in the following | | situations: - Patients under 18 years of age - Severe malnutrition or obesity - | | Vegetarian diet - Rapidly changing kidney function - Amputees, paraplegics, or other | | muscle-wasting diseses | + + CBC ONLY (10/22/2017 1:15 AM) + + + | Specimen | Performing Laboratory | + + + | Blood | | + + + + + | Narrative | + + | The following orders were created for panel order CBC ONLY. | | Procedure | | Abnormality Status | | --------- | | ------ CBC (HEMOGRAM) | | ONLY[[id number]] Abnormal Final | | result Please view results for these tests on the | | individual orders. | + + 12 LEAD ECG (10/21/2017 2:12 PM) + + + + | Component | Value | Ref Range | + + + + | VENTRICULAR RATE | 61 | bpm | + + + + | ATRIAL RATE | 61 | ms | + + + + | P-R INTERVAL | 129 | ms | + + + + | P AXIS | 67 | deg | + + + + | QRS DURATION | 122 | ms | + + + + | QT | 449 | ms | + + + + | QTCB | 454 | ms | + + + + | R AXIS | 75 | deg | + + + + | T AXIS | 13 | deg | + + + + | ECG IMPRESSION | Sinus rhythm | | + + + + | ECG IMPRESSION | Right bundle branch block- ABNORMAL ECG - | | + + + + | ECG IMPRESSION | Electronically signed by: JULIO VIZCAINO | | | | 10-21-2017 18:00:01 | | + + + + + + + | Specimen | Performing Laboratory | + + + | | [facility] [address] [place] [address] | | | [place] [address] | + + + RENAL FUNCTION SET (NA,K,CL,CO2,BUN,CREAT,GLUC,CA,PHOS,ALB ) (10/21/2017 7:56 AM) + + + + | Component | Value | Ref Range | + + + + | GLUCOSE, PLASMA | 109 (H) | 70 - 99 mg/dL | | (LAB) | | | + + + + | BUN, PLASMA (LAB) | 10 | 6 - 20 mg/dL | + + + + | CREATININE PLASMA | 0.57 (L) | 0.70 - 1.30 mg/dL | | (LAB) | | | + + + + | EGFR - | >60 | >60 mL/min | | GABONESE | | | + + + + | EGFR NON | >60 | >60 mL/min | | -GABONESE | | | + + + + | SODIUM, PLASMA (LAB) | 141 | 136 - 145 mmol/L | + + + + | POTASSIUM, PLASMA | 3.6 | 3.4 - 5.0 mmol/L | | (LAB) | | | + + + + | CHLORIDE, PLASMA | 107 | 97 - 108 mmol/L | | (LAB) | | | + + + + | TOTAL CO2, PLASMA | 27 | 21 - 32 mmol/L | | (LAB) | | | + + + + | CALCIUM, PLASMA | 8.6 | 8.6 - 10.2 mg/dL | | (LAB) | | | + + + + | CALCIUM(ALB | 9.8 | 8.6 - 10.2 mg/dL | | CORRECTED) | | | + + + + | ALBUMIN, PLASMA | 2.5 (L) | 3.5 - 4.7 g/dL | | (LAB) | | | + + + + | PHOSPHORUS, PLASMA | 4.2 | 2.4 - 4.7 mg/dL | | (LAB) | | | + + + + | POTASSIUM CMNT | No Hemo | | + + + + | ANION GAP | 7 | 4 - 11 mmol/L | + + + + | ANION GAP(ALB | 10 | 4 - 11 mmol/L | | CORRECTED) | | | + + + + + + + | Specimen | Performing Laboratory | + + + | Blood | [facility], [place] [address] [place] [address] | | | [place] [address] | + + + + + | Narrative | + + | GFR is estimated using the MDRD equation recommended by the National Kidney Disease | | Education Program. Estimated GFR Interpretive Information: <60 mL/min/1.73 sq | | m Chronic Kidney Disease <15 mL/min/1.73 sq | | m Kidney Failure Estimated GFR greater that 60 mL/min/1.73 | | sq m is of limited clinical value. The MDRD equation is not valid in the following | | situations: - Patients under 18 years of age - Severe malnutrition or obesity - | | Vegetarian diet - Rapidly changing kidney function - Amputees, paraplegics, or other | | muscle-wasting diseses | + + MAGNESIUM, PLASMA (10/21/2017 7:56 AM) + +-------+ + | Component | Value | Ref Range | + +-------+ + | MAGNESIUM,PLASMA | 2.2 | 1.6 - 2.6 mg/dL | + +-------+ + + + + | Specimen | Performing Laboratory | + + + | Blood | [facility], [facility] [address] [facility] | | | [place] [address] | + + + + + | Narrative | + + | Reference range change effective 12/11/16. | + + 12 LEAD ECG (10/19/2017 12:23 PM) + + + + | Component | Value | Ref Range | + + + + | VENTRICULAR RATE | 53 | bpm | + + + + | ATRIAL RATE | 53 | ms | + + + + | P-R INTERVAL | 128 | ms | + + + + | P AXIS | 81 | deg | + + + + | QRS DURATION | 126 | ms | + + + + | QT | 466 | ms | + + + + | QTCB | 438 | ms | + + + + | R AXIS | 70 | deg | + + + + | T AXIS | 19 | deg | + + + + | ECG IMPRESSION | Sinus bradycardia | | + + + + | ECG IMPRESSION | Right bundle branch block | | + + + + | ECG IMPRESSION | Minimal ST elevation, anterior leads- | | | | ABNORMAL ECG - | | + + + + | ECG IMPRESSION | Electronically signed by: ALEXANDROJULIO WEBBER | | | | 10-20-2017 12:10:47 | | + + + + + + + | Specimen | Performing Laboratory | + + + | | [facility] [address] [place] [address] | | | [place] [address] | + + + MAGNESIUM, PLASMA (10/18/2017 9:01 AM) + +-------+ + | Component | Value | Ref Range | + +-------+ + | MAGNESIUM,PLASMA | 1.9 | 1.6 - 2.6 mg/dL | + +-------+ + + + + | Specimen | Performing Laboratory | + + + | Blood | [facility], [place] [address] [place] [address] | | | [place] [address] | + + + + + | Narrative | + + | Reference range change effective 12/11/16. | + + RENAL FUNCTION SET (NA,K,CL,CO2,BUN,CREAT,GLUC,CA,PHOS,ALB ) (10/18/2017 9:01 AM) + + + + | Component | Value | Ref Range | + + + + | GLUCOSE, PLASMA | 114 (H) | 70 - 99 mg/dL | | (LAB) | | | + + + + | BUN, PLASMA (LAB) | 8 | 6 - 20 mg/dL | + + + + | CREATININE PLASMA | 0.45 (L) | 0.70 - 1.30 mg/dL | | (LAB) | | | + + + + | EGFR - | >60 | >60 mL/min | | GABONESE | | | + + + + | EGFR NON | >60 | >60 mL/min | | -GABONESE | | | + + + + | SODIUM, PLASMA (LAB) | 135 (L) | 136 - 145 mmol/L | + + + + | POTASSIUM, PLASMA | 3.7 | 3.4 - 5.0 mmol/L | | (LAB) | | | + + + + | CHLORIDE, PLASMA | 107 | 97 - 108 mmol/L | | (LAB) | | | + + + + | TOTAL CO2, PLASMA | 21 | 21 - 32 mmol/L | | (LAB) | | | + + + + | CALCIUM, PLASMA | 8.1 (L) | 8.6 - 10.2 mg/dL | | (LAB) | | | + + + + | CALCIUM(ALB | 9.7 | 8.6 - 10.2 mg/dL | | CORRECTED) | | | + + + + | ALBUMIN, PLASMA | 2.0 (L) | 3.5 - 4.7 g/dL | | (LAB) | | | + + + + | PHOSPHORUS, PLASMA | 3.3 | 2.4 - 4.7 mg/dL | | (LAB) | | | + + + + | POTASSIUM CMNT | No Hemo | | + + + + | ANION GAP | 7 | 4 - 11 mmol/L | + + + + | ANION GAP(ALB | 12 (H) | 4 - 11 mmol/L | | CORRECTED) | | | + + + + + + + | Specimen | Performing Laboratory | + + + | Blood | [facility], [place] [address] [facility] | | | [place] [address] | + + + + + | Narrative | + + | GFR is estimated using the MDRD equation recommended by the National Kidney Disease | | Education Program. Estimated GFR Interpretive Information: <60 mL/min/1.73 sq | | m Chronic Kidney Disease <15 mL/min/1.73 sq | | m Kidney Failure Estimated GFR greater that 60 mL/min/1.73 | | sq m is of limited clinical value. The MDRD equation is not valid in the following | | situations: - Patients under 18 years of age - Severe malnutrition or obesity - | | Vegetarian diet - Rapidly changing kidney function - Amputees, paraplegics, or other | | muscle-wasting diseses | + + 12 LEAD ECG (10/17/2017 9:34 AM) + + + + | Component | Value | Ref Range | + + + + | VENTRICULAR RATE | 58 | bpm | + + + + | ATRIAL RATE | 58 | ms | + + + + | P-R INTERVAL | 128 | ms | + + + + | P AXIS | 50 | deg | + + + + | QRS DURATION | 131 | ms | + + + + | QT | 467 | ms | + + + + | QTCB | 459 | ms | + + + + | R AXIS | 79 | deg | + + + + | T AXIS | 26 | deg | + + + + | ECG IMPRESSION | Sinus bradycardia | | + + + + | ECG IMPRESSION | Right bundle branch block- ABNORMAL ECG - | | + + + + | ECG IMPRESSION | Electronically signed by: AJAY DE LOS SANTOS | | | | 10-17-2017 12:36:44 | | + + + + + + + | Specimen | Performing Laboratory | + + + | | [facility] [address] [place] [address] | | | [place] [address] | + + + RENAL FUNCTION SET (NA,K,CL,CO2,BUN,CREAT,GLUC,CA,PHOS,ALB ) (10/17/2017 4:58 AM) + + + + | Component | Value | Ref Range | + + + + | GLUCOSE, PLASMA | 104 (H) | 70 - 99 mg/dL | | (LAB) | | | + + + + | BUN, PLASMA (LAB) | 8 | 6 - 20 mg/dL | + + + + | CREATININE PLASMA | 0.47 (L) | 0.70 - 1.30 mg/dL | | (LAB) | | | + + + + | EGFR - | >60 | >60 mL/min | | GABONESE | | | + + + + | EGFR NON | >60 | >60 mL/min | | -GABONESE | | | + + + + | SODIUM, PLASMA (LAB) | 140 | 136 - 145 mmol/L | + + + + | POTASSIUM, PLASMA | 3.2 (L) | 3.4 - 5.0 mmol/L | | (LAB) | | | + + + + | CHLORIDE, PLASMA | 106 | 97 - 108 mmol/L | | (LAB) | | | + + + + | TOTAL CO2, PLASMA | 26 | 21 - 32 mmol/L | | (LAB) | | | + + + + | CALCIUM, PLASMA | 8.1 (L) | 8.6 - 10.2 mg/dL | | (LAB) | | | + + + + | CALCIUM(ALB | 9.4 | 8.6 - 10.2 mg/dL | | CORRECTED) | | | + + + + | ALBUMIN, PLASMA | 2.4 (L) | 3.5 - 4.7 g/dL | | (LAB) | | | + + + + | PHOSPHORUS, PLASMA | 3.6 | 2.4 - 4.7 mg/dL | | (LAB) | | | + + + + | POTASSIUM CMNT | No Hemo | | + + + + | ANION GAP | 8 | 4 - 11 mmol/L | + + + + | ANION GAP(ALB | 12 (H) | 4 - 11 mmol/L | | CORRECTED) | | | + + + + + + + | Specimen | Performing Laboratory | + + + | Blood | [facility], [place] [address] [place] [address] | | | [place] [address] | + + + + + | Narrative | + + | GFR is estimated using the MDRD equation recommended by the National Kidney Disease | | Education Program. Estimated GFR Interpretive Information: <60 mL/min/1.73 sq | | m Chronic Kidney Disease <15 mL/min/1.73 sq | | m Kidney Failure Estimated GFR greater that 60 mL/min/1.73 | | sq m is of limited clinical value. The MDRD equation is not valid in the following | | situations: - Patients under 18 years of age - Severe malnutrition or obesity - | | Vegetarian diet - Rapidly changing kidney function - Amputees, paraplegics, or other | | muscle-wasting diseses | + + MAGNESIUM, PLASMA (10/17/2017 4:58 AM) + +-------+ + | Component | Value | Ref Range | + +-------+ + | MAGNESIUM,PLASMA | 2.0 | 1.6 - 2.6 mg/dL | + +-------+ + + + + | Specimen | Performing Laboratory | + + + | Blood | [facility], [place] [address] [facility] | | | [place] [address] | + + + + + | Narrative | + + | Reference range change effective 12/11/16. | + + 12 LEAD ECG (10/16/2017 11:23 AM) + + + + | Component | Value | Ref Range | + + + + | VENTRICULAR RATE | 63 | bpm | + + + + | ATRIAL RATE | 63 | ms | + + + + | P-R INTERVAL | 145 | ms | + + + + | P AXIS | 56 | deg | + + + + | QRS DURATION | 135 | ms | + + + + | QT | 464 | ms | + + + + | QTCB | 476 | ms | + + + + | R AXIS | 77 | deg | + + + + | T AXIS | 42 | deg | + + + + | ECG IMPRESSION | Sinus rhythm | | + + + + | ECG IMPRESSION | Right bundle branch block- ABNORMAL ECG - | | + + + + | ECG IMPRESSION | Electronically signed by: AJAY DE LOS SANTOS | | | | 10-17-2017 12:37:03 | | + + + + + + + | Specimen | Performing Laboratory | + + + | | [facility] [address] [place] [address] | | | [place] [address] | + + + BASIC METABOLIC SET (NA, K, CL, TCO2, BUN, CR, GLU, CA) (10/16/2017 10:12 AM) + + + + | Component | Value | Ref Range | + + + + | GLUCOSE, PLASMA | 137 (H) | 70 - 99 mg/dL | | (LAB) | | | + + + + | BUN, PLASMA (LAB) | 7 | 6 - 20 mg/dL | + + + + | CREATININE PLASMA | 0.48 (L) | 0.70 - 1.30 mg/dL | | (LAB) | | | + + + + | EGFR - | >60 | >60 mL/min | | GABONESE | | | + + + + | EGFR NON | >60 | >60 mL/min | | -GABONESE | | | + + + + | SODIUM, PLASMA (LAB) | 138 | 136 - 145 mmol/L | + + + + | POTASSIUM, PLASMA | 3.5 | 3.4 - 5.0 mmol/L | | (LAB) | | | + + + + | CHLORIDE, PLASMA | 105 | 97 - 108 mmol/L | | (LAB) | | | + + + + | TOTAL CO2, PLASMA | 23 | 21 - 32 mmol/L | | (LAB) | | | + + + + | CALCIUM, PLASMA | 8.1 (L) | 8.6 - 10.2 mg/dL | | (LAB) | | | + + + + | ANION GAP | 10 | 4 - 11 mmol/L | + + + + | POTASSIUM CMNT | No Hemo | | + + + + + + + | Specimen | Performing Laboratory | + + + | Blood | [facility], [place] [address] | | | [place] [address] | + + + + + | Narrative | + + | GFR is estimated using the MDRD equation recommended by the National Kidney Disease | | Education Program. Estimated GFR Interpretive Information: <60 mL/min/1.73 sq | | m Chronic Kidney Disease <15 mL/min/1.73 sq | | m Kidney Failure Estimated GFR greater that 60 mL/min/1.73 | | sq m is of limited clinical value. The MDRD equation is not valid in the following | | situations: - Patients under 18 years of age - Severe malnutrition or obesity - | | Vegetarian diet - Rapidly changing kidney function - Amputees, paraplegics, or other | | muscle-wasting diseses | + + CBC (HEMOGRAM) ONLY (10/16/2017 6:32 AM) + + + + | Component | Value | Ref Range | + + + + | WHITE CELL COUNT | 9.42 | 3.50 - 10.80 K/cu mm | + + + + | RED CELL COUNT | 2.91 (L) | 4.50 - 6.00 M/cu mm | + + + + | HEMOGLOBIN | 8.7 (L) | 13.5 - 17.5 g/dL | + + + + | HEMATOCRIT | 26.9 (L) | 41.0 - 53.0 % | + + + + | MCV | 92.4 | 80.0 - 100.0 fL | + + + + | MCHC | 32.3 | 32.0 - 36.0 g/dL | + + + + | RDW SD | 52.6 (H) | 35.1 - 46.3 fL | + + + + | PLATELET COUNT | 224 | 150 - 400 K/cu mm | + + + + | MPV | 8.9 (L) | 9.7 - 12.3 fL | + + + + | NRBC% | 0.0 | 0.0 - 0.3 % | + + + + | NRBC# | 0.00 | 0.00 - 0.02 K/cu mm | + + + + + + + | Specimen | Performing Laboratory | + + + | Blood | [facility], [place] [address] | | | [place] [address] | + + + + + | Narrative | + + | New reference ranges for MCV, MCHC, PLT, IG% and IG# effective 09/05/2017 | + + CBC ONLY (10/16/2017 6:32 AM) + + + | Specimen | Performing Laboratory | + + + | Blood | | + + + + + | Narrative | + + | The following orders were created for panel order CBC ONLY. | | Procedure | | Abnormality Status | | --------- | | ------ CBC (HEMOGRAM) | | ONLY[[id number]] Abnormal Final | | result Please view results for these tests on the | | individual orders. | + + VASC LAB VENOUS DUPLEX LOWER EXTREMITY BILAT COMP (10/15/2017 3:08 PM) + + + | Specimen | Performing Laboratory | + + + | | [facility] | + + + + + | Narrative | + + | Bilateral: The duplex scanner was used to examine the deep and superficial veins of | | the right and left lower extremities. The veins are patent bilaterally with normal | | flow and responses to augmentation and compression maneuvers and no thrombus is noted. | | Conclusions: A normal venous examination of the bilateral lower extremities. No | | venous thrombosis was detected. I have personally reviewed the images and, | | if necessary, edited the report. I agree with the report as now presented. | + + + + | Procedure Note | + + | 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, [employer] In Interface - 10/15/2017 3:58 PM PDT [...] report as now presented. | + + 12 LEAD ECG (10/15/2017 1:25 PM) + + + + | Component | Value | Ref Range | + + + + | VENTRICULAR RATE | 59 | bpm | + + + + | ATRIAL RATE | 59 | ms | + + + + | P-R INTERVAL | 135 | ms | + + + + | P AXIS | 59 | deg | + + + + | QRS DURATION | 126 | ms | + + + + | QT | 463 | ms | + + + + | QTCB | 458 | ms | + + + + | R AXIS | 77 | deg | + + + + | T AXIS | 27 | deg | + + + + | ECG IMPRESSION | Sinus bradycardia | | + + + + | ECG IMPRESSION | Right bundle branch block- ABNORMAL ECG - | | + + + + | ECG IMPRESSION | Electronically signed by: AJAY DE LOS SANTOS | | | | 10-15-2017 20:01:12 | | + + + + + + + | Specimen | Performing Laboratory | + + + | | [facility] [address] [place] [address] | | | [place] [address] | + + + CAPILLARY BLOOD GLUCOSE (NO CHG), POC (10/15/2017 6:01 AM) + +---------+ + | Component | Value | Ref Range | + +---------+ + | BLOOD GLUCOSE, POC | 134 (H) | 70 - 99 mg/dL | + +---------+ + + + + | Specimen | Performing Laboratory | + + + | | [facility], POINT [facility] CARE TESTS [address] | | | [place] [address] | + + + CBC (HEMOGRAM) ONLY (10/15/2017 5:48 AM) + + + + | Component | Value | Ref Range | + + + + | WHITE CELL COUNT | 7.89 | 3.50 - 10.80 K/cu mm | + + + + | RED CELL COUNT | 2.80 (L) | 4.50 - 6.00 M/cu mm | + + + + | HEMOGLOBIN | 8.4 (L) | 13.5 - 17.5 g/dL | + + + + | HEMATOCRIT | 25.6 (L) | 41.0 - 53.0 % | + + + + | MCV | 91.4 | 80.0 - 100.0 fL | + + + + | MCHC | 32.8 | 32.0 - 36.0 g/dL | + + + + | RDW SD | 52.4 (H) | 35.1 - 46.3 fL | + + + + | PLATELET COUNT | 161 | 150 - 400 K/cu mm | + + + + | MPV | 9.0 (L) | 9.7 - 12.3 fL | + + + + | NRBC% | 0.0 | 0.0 - 0.3 % | + + + + | NRBC# | 0.00 | 0.00 - 0.02 K/cu mm | + + + + + + + | Specimen | Performing Laboratory | + + + | Blood | [facility], [place] [address] [place] [address] | | | [place] [address] | + + + + + | Narrative | + + | New reference ranges for MCV, MCHC, PLT, IG% and IG# effective 09/05/2017 | + + CBC ONLY (10/15/2017 5:48 AM) + + + | Specimen | Performing Laboratory | + + + | Blood | | + + + + + | Narrative | + + | The following orders were created for panel order CBC ONLY. | | Procedure | | Abnormality Status | | --------- | | ------ CBC (HEMOGRAM) | | ONLY[[id number]] Abnormal Final | | result Please view results for these tests on the | | individual orders. | + + CAPILLARY BLOOD GLUCOSE (NO CHG), POC (10/15/2017 12:36 AM) + +---------+ + | Component | Value | Ref Range | + +---------+ + | BLOOD GLUCOSE, POC | 133 (H) | 70 - 99 mg/dL | + +---------+ + + + + | Specimen | Performing Laboratory | + + + | | [facility], POINT OF CARE TESTS [address] | | | [place] [address] | + + + 12 LEAD ECG (10/14/2017 12:23 PM) + + + + | Component | Value | Ref Range | + + + + | VENTRICULAR RATE | 61 | bpm | + + + + | ATRIAL RATE | 61 | ms | + + + + | P-R INTERVAL | 148 | ms | + + + + | P AXIS | 54 | deg | + + + + | QRS DURATION | 123 | ms | + + + + | QT | 452 | ms | + + + + | QTCB | 454 | ms | + + + + | R AXIS | 59 | deg | + + + + | T AXIS | 24 | deg | + + + + | ECG IMPRESSION | Sinus rhythm | | + + + + | ECG IMPRESSION | Right bundle branch block | | + + + + | ECG IMPRESSION | ST elevation, consider lateral injury- | | | | ABNORMAL ECG - | | + + + + | ECG IMPRESSION | Electronically signed by: JULIO VIZCAINO | | | | 10-14-2017 16:59:23 | | + + + + + + + | Specimen | Performing Laboratory | + + + | | [facility] [address] [place] [address] | | | [place] [address] | + + + CBC (HEMOGRAM) ONLY (10/14/2017 4:53 AM) + + + + | Component | Value | Ref Range | + + + + | WHITE CELL COUNT | 9.69 | 3.50 - 10.80 K/cu mm | + + + + | RED CELL COUNT | 2.62 (L) | 4.50 - 6.00 M/cu mm | + + + + | HEMOGLOBIN | 7.9 (L) | 13.5 - 17.5 g/dL | + + + + | HEMATOCRIT | 24.5 (L) | 41.0 - 53.0 % | + + + + | MCV | 93.5 | 80.0 - 100.0 fL | + + + + | MCHC | 32.2 | 32.0 - 36.0 g/dL | + + + + | RDW SD | 54.6 (H) | 35.1 - 46.3 fL | + + + + | PLATELET COUNT | 174 | 150 - 400 K/cu mm | + + + + | MPV | 9.3 (L) | 9.7 - 12.3 fL | + + + + | NRBC% | 0.0 | 0.0 - 0.3 % | + + + + | NRBC# | 0.00 | 0.00 - 0.02 K/cu mm | + + + + + + + | Specimen | Performing Laboratory | + + + | Blood | [facility], [address] [address] | | | [place] [address] | + + + + + | Narrative | + + | New reference ranges for MCV, MCHC, PLT, IG% and IG# effective 09/05/2017 | + + RENAL FUNCTION SET (NA,K,CL,CO2,BUN,CREAT,GLUC,CA,PHOS,ALB ) (10/14/2017 4:53 AM) + + + + | Component | Value | Ref Range | + + + + | GLUCOSE, PLASMA | 107 (H) | 70 - 99 mg/dL | | (LAB) | | | + + + + | BUN, PLASMA (LAB) | 8 | 6 - 20 mg/dL | + + + + | CREATININE PLASMA | 0.56 (L) | 0.70 - 1.30 mg/dL | | (LAB) | | | + + + + | EGFR - | >60 | >60 mL/min | | GABONESE | | | + + + + | EGFR NON | >60 | >60 mL/min | | -GABONESE | | | + + + + | SODIUM, PLASMA (LAB) | 141 | 136 - 145 mmol/L | + + + + | POTASSIUM, PLASMA | 3.2 (L) | 3.4 - 5.0 mmol/L | | (LAB) | | | + + + + | CHLORIDE, PLASMA | 107 | 97 - 108 mmol/L | | (LAB) | | | + + + + | TOTAL CO2, PLASMA | 27 | 21 - 32 mmol/L | | (LAB) | | | + + + + | CALCIUM, PLASMA | 7.9 (L) | 8.6 - 10.2 mg/dL | | (LAB) | | | + + + + | CALCIUM(ALB | 9.6 | 8.6 - 10.2 mg/dL | | CORRECTED) | | | + + + + | ALBUMIN, PLASMA | 1.9 (L) | 3.5 - 4.7 g/dL | | (LAB) | | | + + + + | PHOSPHORUS, PLASMA | 2.5 | 2.4 - 4.7 mg/dL | | (LAB) | | | + + + + | POTASSIUM CMNT | No Hemo | | + + + + | ANION GAP | 7 | 4 - 11 mmol/L | + + + + | ANION GAP(ALB | 12 (H) | 4 - 11 mmol/L | | CORRECTED) | | | + + + + + + + | Specimen | Performing Laboratory | + + + | Blood | [facility], [place] [address] [facility] | | | [place] [address] | + + + + + | Narrative | + + | GFR is estimated using the MDRD equation recommended by the National Kidney Disease | | Education Program. Estimated GFR Interpretive Information: <60 mL/min/1.73 sq | | m Chronic Kidney Disease <15 mL/min/1.73 sq | | m Kidney Failure Estimated GFR greater that 60 mL/min/1.73 | | sq m is of limited clinical value. The MDRD equation is not valid in the following | | situations: - Patients under 18 years of age - Severe malnutrition or obesity - | | Vegetarian diet - Rapidly changing kidney function - Amputees, paraplegics, or other | | muscle-wasting diseses | + + MAGNESIUM, PLASMA (10/14/2017 4:53 AM) + +-------+ + | Component | Value | Ref Range | + +-------+ + | MAGNESIUM,PLASMA | 1.7 | 1.6 - 2.6 mg/dL | + +-------+ + + + + | Specimen | Performing Laboratory | + + + | Blood | [facility], [place] [address] [facility] | | | [place] [address] | + + + + + | Narrative | + + | Reference range change effective 8/15/17. | + + CBC ONLY (10/14/2017 4:53 AM) + + + | Specimen | Performing Laboratory | + + + | Blood | | + + + + + | Narrative | + + | The following orders were created for panel order CBC ONLY. | | Procedure | | Abnormality Status | | --------- | | ------ CBC (HEMOGRAM) | | ONLY[[id number]] Abnormal Final | | result Please view results for these tests on the | | individual orders. | + + CAPILLARY BLOOD GLUCOSE (NO CHG), POC (10/14/2017 12:14 AM) + +---------+ + | Component | Value | Ref Range | + +---------+ + | BLOOD GLUCOSE, POC | 119 (H) | 70 - 99 mg/dL | + +---------+ + + + + | Specimen | Performing Laboratory | + + + | | [facility] [address] | | | [place] [address] | + + + CAPILLARY BLOOD GLUCOSE (NO CHG), POC (10/13/2017 6:09 PM) + +---------+ + | Component | Value | Ref Range | + +---------+ + | BLOOD GLUCOSE, POC | 122 (H) | 70 - 99 mg/dL | + +---------+ + + + + | Specimen | Performing Laboratory | + + + | | [facility], POINT OF CARE TESTS [address] | | | [place] [address] | + + + CBC (HEMOGRAM) ONLY (10/13/2017 4:34 AM) + + + + | Component | Value | Ref Range | + + + + | WHITE CELL COUNT | 17.63 (H) | 3.50 - 10.80 K/cu mm | + + + + | RED CELL COUNT | 2.82 (L) | 4.50 - 6.00 M/cu mm | + + + + | HEMOGLOBIN | 8.6 (L) | 13.5 - 17.5 g/dL | + + + + | HEMATOCRIT | 25.9 (L) | 41.0 - 53.0 % | + + + + | MCV | 91.8 | 80.0 - 100.0 fL | + + + + | MCHC | 33.2 | 32.0 - 36.0 g/dL | + + + + | RDW SD | 54.9 (H) | 35.1 - 46.3 fL | + + + + | PLATELET COUNT | 184 | 150 - 400 K/cu mm | + + + + | MPV | 9.3 (L) | 9.7 - 12.3 fL | + + + + | NRBC% | 0.0 | 0.0 - 0.3 % | + + + + | NRBC# | 0.00 | 0.00 - 0.02 K/cu mm | + + + + + + + | Specimen | Performing Laboratory | + + + | Blood | [facility], [facility] [address] [facility] | | | [place] [address] | + + + + + | Narrative | + + | New reference ranges for MCV, MCHC, PLT, IG% and IG# effective 09/05/2017 | + + RENAL FUNCTION SET (NA,K,CL,CO2,BUN,CREAT,GLUC,CA,PHOS,ALB ) (10/13/2017 4:34 AM) + + + + | Component | Value | Ref Range | + + + + | GLUCOSE, PLASMA | 119 (H) | 70 - 99 mg/dL | | (LAB) | | | + + + + | BUN, PLASMA (LAB) | 13 | 6 - 20 mg/dL | + + + + | CREATININE PLASMA | 0.52 (L) | 0.70 - 1.30 mg/dL | | (LAB) | | | + + + + | EGFR - | >60 | >60 mL/min | | GABONESE | | | + + + + | EGFR NON | >60 | >60 mL/min | | -GABONESE | | | + + + + | SODIUM, PLASMA (LAB) | 140 | 136 - 145 mmol/L | + + + + | POTASSIUM, PLASMA | 3.6 | 3.4 - 5.0 mmol/L | | (LAB) | | | + + + + | CHLORIDE, PLASMA | 107 | 97 - 108 mmol/L | | (LAB) | | | + + + + | TOTAL CO2, PLASMA | 25 | 21 - 32 mmol/L | | (LAB) | | | + + + + | CALCIUM, PLASMA | 7.9 (L) | 8.6 - 10.2 mg/dL | | (LAB) | | | + + + + | CALCIUM(ALB | 9.5 | 8.6 - 10.2 mg/dL | | CORRECTED) | | | + + + + | ALBUMIN, PLASMA | 2.0 (L) | 3.5 - 4.7 g/dL | | (LAB) | | | + + + + | PHOSPHORUS, PLASMA | 3.0 | 2.4 - 4.7 mg/dL | | (LAB) | | | + + + + | POTASSIUM CMNT | No Hemo | | + + + + | ANION GAP | 8 | 4 - 11 mmol/L | + + + + | ANION GAP(ALB | 13 (H) | 4 - 11 mmol/L | | CORRECTED) | | | + + + + + + + | Specimen | Performing Laboratory | + + + | Blood | [facility], [facility] [address] [place] [address] | | | [place] [address] | + + + + + | Narrative | + + | GFR is estimated using the MDRD equation recommended by the National Kidney Disease | | Education Program. Estimated GFR Interpretive Information: <60 mL/min/1.73 sq | | m Chronic Kidney Disease <15 mL/min/1.73 sq | | m Kidney Failure Estimated GFR greater that 60 mL/min/1.73 | | sq m is of limited clinical value. The MDRD equation is not valid in the following | | situations: - Patients under 18 years of age - Severe malnutrition or obesity - | | Vegetarian diet - Rapidly changing kidney function - Amputees, paraplegics, or other | | muscle-wasting diseses | + + CBC ONLY (10/13/2017 4:34 AM) + + + | Specimen | Performing Laboratory | + + + | Blood | | + + + + + | Narrative | + + | The following orders were created for panel order CBC ONLY. | | Procedure | | Abnormality Status | | --------- | | ------ CBC (HEMOGRAM) | | ONLY[[id number]] Abnormal Final | | result Please view results for these tests on the | | individual orders. | + + OPERATION RECORD (10/12/2017 8:50 PM) + + | Procedure Note | + + | Pilar Cotto MD - 10/12/2017 8:50 PM PDT Date of Service: 10/12/2017 | | Attending Surgeon: Chaz Munoz MD Therapeutic Program Worker(s): Randell Dixon M.D., | | fellow. George [...] tube into the | | stomach.Indications: Mr. Berlin Temple is a 67-year-old gentleman who has [...] Discussions were | | held with Mr. Berlin Temple's sister, prior to the procedure, and [...] saline. We then | | placed a 19-[place] drain deep into the abscess cavity, tracking [...] given concern for possible inflammatory response. Dr. Munoz | | was present and scrubbed for all critical portions of the case. Pilar Cotto, | | MDMdhruv Munoz, MDKMW/MODLDD: 10/12/2017 19:50:06DT: 10/12/2017 20:50:54Job #: | | [id number] | + + X-RAY PORTABLE CHEST 1 VIEW (10/12/2017 7:50 PM) + + + | Specimen | Performing Laboratory | + + + | | [facility] VOICE RECOGNITION 2 | + + + + + | Narrative | + + | EXAM: UT CHEST 1 VIEW HISTORY: Evaluate endotracheal tube positioning | | COMPARISON: Chest radiograph 10/02/2017 FINDINGS: Endotracheal tube tip terminates | | 5 cm above the yifan. Left upper extremity PICC has been removed. Weighted feeding | | tube has been removed. The cardiomediastinal silhouette is. Minimal bibasilar | | atelectasis is seen. The lungs are otherwise clear. There is no pleural effusion or | | pneumothorax. There is no pulmonary edema. Posttraumatic deformity is again noted of the | | left proximal humerus. IMPRESSION: ET tube tip 5 cm above yifan. Minimal | | bibasilar atelectasis. I have personally reviewed the images and, if necessary, | | edited the report. I agree with the report as now presented. Final signature: | | Kathy Diehl MD 10/13/2017 9:03 AM Preliminary: Gurpreet Dunne MD | | Dictation initiated: Gurpreet Dunne MD 10/13/2017 8:08 AM | + + + + | Procedure Note | + + | 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, [employer] Res In Interface - 10/13/2017 9:04 AM PDT EXAM: UT CHEST 1 | | VIEW HISTORY: Evaluate [...] MD 10/13/2017 8:08 AM | + + PROCEDURE NOTE (10/12/2017 7:29 PM) + + | Narrative | + + | Pilar Cotto MD 10/12/2017 7:35 PM BRIEF OPERATIVE NOTE | | Procedure Date: 10/12/17 Author: Caron Cotto MD R2 Attending Physician: Chaz | | MD Tammy Assistants: Randell Dixon MD fellow George Noriega MD R2 Caron Cotto | | R2 Preoperative Diagnosis: Post-gastrostomy tube complication Postoperative | | Diagnosis: Same Procedure Performed: Re-opening of recent laparotomy, abdominal | | exploration, lysis of adhesions, removal of gastrostomy tube, abdominal washout, open | | gastrostomy tube placement (Stella procedure), EGD Findings: Gastrostomy tube in | | abscess cavity with well-formed wall, anterior to true stomach. EGD demonstrating | | stomach without gastrostomy. New gastrostomy tube placed under direct open and | | endoscopic visualization. Abdominal wall fluid collection tracking laterally (right) | | containing tube feeds. Complications: None apparent Fluids: EBL: 50 ml UOP: 205 | | ml and crystalloid: 1500 ml Specimens: None Drains: Gastrostomy tube; 19 Fr | | bushra drain to bulb suction (tracks laterally to the right in the abscess cavity) | | Disposition: ICU Rees: Continue Diet: TF pending clinical stability DVT | | prophylaxis: okay to begin POD 0 at 2100 hours Antibiotic Plan: Continue scheduled | | abx Glycemic control: SSI as indicated Dressing care: Maintain dressing | | Initial surgical contact: TSICU | + + CAPILLARY BLOOD GLUCOSE (NO CHG), POC (10/12/2017 1:33 PM) + +---------+ + | Component | Value | Ref Range | + +---------+ + | BLOOD GLUCOSE, POC | 141 (H) | 70 - 99 mg/dL | + +---------+ + + + + | Specimen | Performing Laboratory | + + + | | [facility] [address] | | | [place] [address] | + + + CT ABDOMEN AND PELVIS W IV CONTRAST (10/12/2017 9:05 AM) + + + | Specimen | Performing Laboratory | + + + | | [facility] | + + + + + | Narrative | + + | EXAM: CT of the abdomen and pelvis WITH intravenous contrast. HISTORY: | | 67-year-old man admitted for trauma/TBI. Gastrostomy tube with leak. COMPARISON: CT | | 09/11/2017. TECHNIQUE: CT of the abdomen and pelvis with non-ionic iodinated | | intravenous contrast. Coronal and sagittal reformats were generated and reviewed. | | FINDINGS: LOWER THORAX: Compared with 09/11/2017, left lower lobe consolidation has | | slightly decreased. Trace left pleural effusion. Trace right basilar atelectasis is | | noted. Otherwise, unremarkable. LIVER: Unremarkable. BILIARY: Tiny gallstone within | | the gallbladder. PANCREAS: Unremarkable. SPLEEN: Redemonstrated | | intermediate-density perisplenic fluid, likely representing blood products. A posterior | | splenic cleft (3/116) is again noted, likely representing a small laceration. There is | | an unchanged tiny metallic density within the left upper quadrant. ADRENALS: Stable | | bilateral adrenal nodularity. KIDNEYS/URETERS: Unremarkable. PELVIC ORGANS/BLADDER: | | Unremarkable. GI TRACT/PERITONEUM: A gastrostomy tube is malpositioned within | | greater sac/omentum, outside of the gastric lumen. There is extensive pneumoperitoneum, | | with air overlying the left hepatic lobe and scattered throughout the peritoneal cavity. | | A large amount of extraluminal, intraperitoneal contrast and fluid is noted primarily | | along the greater curvature of the stomach and in the region of the transverse | | mesocolon. There are a few loops of dilated small bowel within the left lower quadrant | | measuring up to 4.8 cm in diameter, with adjacent decompressed loops of small bowel. | | Moderate amount of stool throughout the colon. LYMPH NODES: No lymphadenopathy. | | VESSELS: Unremarkable. BONES AND SOFT TISSUES: Partially visualized intramedullary | | nail and screw fixation of a left proximal femur fracture is noted. Multiple bilateral | | rib fractures, T12 vertebral body fracture and pelvic fractures are again noted, with | | evidence of interval early callus formation. The T12 vertebral body fracture shows | | additional 10% anterior height loss. A midline abdominal surgical wound is noted, with | | mesenteric stranding about the anterior abdomen. IMPRESSION: 1. Malpositioned | | gastrostomy tube outside of the gastric lumen, with extensive pneumoperitoneum, | | intraperitoneal contrast, and free fluid. 2. Dilated loops of proximal jejunum | | measuring up to 4.8 cm in diameter. This may reflect focal ileus although early | | obstruction is conceivable. Attention on follow-up. 3. Redemonstrated multiple | | bilateral rib fractures, T12 vertebral body fracture, and pelvic/fixated femur | | fractures, with evidence of early callus formation. The T12 vertebral body fracture | | shows an additional 10% anterior height loss compared to 09/11/2017. 4. Stable | | subcentimeter splenic laceration. 5. Slightly decreased left lower lobe | | consolidation. Attention on follow-up recommended. Critical results were | | discussed with Dr. Calles of the trauma service on 10/12/2017 9:30 AM by Dae Izaguirre MD. | | I have personally reviewed the images and, if necessary, edited the report. I agree | | with the report as now presented. Final signature: Mason Sanchez MD 10/12/2017 | | 5:04 PM Preliminary: Dae Izaguirre MD Dictation initiated: Dae Izaguirre MD | | 10/12/2017 9:04 AM | + + + + | Procedure Note [...] as now | | presented. Final signature: Mason Sanchez MD 10/12/2017 5:04 PM Preliminary: Dae [...] now presented. | | | |Final signature: Mason Sanchez MD 10/12/2017 5:04 PM | |Preliminary: Dae Izaguirre MD | |Dictation initiated: Dae Izaguirre MD 10/12/2017 9:04 AM | + + CBC (HEMOGRAM) ONLY (10/12/2017 7:38 AM) + + + + | Component | Value | Ref Range | + + + + | WHITE CELL COUNT | 23.86 (H) | 3.50 - 10.80 K/cu mm | + + + + | RED CELL COUNT | 3.42 (L) | 4.50 - 6.00 M/cu mm | + + + + | HEMOGLOBIN | 10.3 (L) | 13.5 - 17.5 g/dL | + + + + | HEMATOCRIT | 31.3 (L) | 41.0 - 53.0 % | + + + + | MCV | 91.5 | 80.0 - 100.0 fL | + + + + | MCHC | 32.9 | 32.0 - 36.0 g/dL | + + + + | RDW SD | 55.6 (H) | 35.1 - 46.3 fL | + + + + | PLATELET COUNT | 215 | 150 - 400 K/cu mm | + + + + | MPV | 9.4 (L) | 9.7 - 12.3 fL | + + + + | NRBC% | 0.0 | 0.0 - 0.3 % | + + + + | NRBC# | 0.00 | 0.00 - 0.02 K/cu mm | + + + + + + + | Specimen | Performing Laboratory | + + + | Blood | [facility] [place] [address] | | | [place] [address] | + + + + + | Narrative | + + | New reference ranges for MCV, MCHC, PLT, IG% and IG# effective 09/05/2017 | + + BASIC METABOLIC SET (NA, K, CL, TCO2, BUN, CR, GLU, CA) (10/12/2017 7:38 AM) + + + + | Component | Value | Ref Range | + + + + | GLUCOSE, PLASMA | 109 (H) | 70 - 99 mg/dL | | (LAB) | | | + + + + | BUN, PLASMA (LAB) | 8 | 6 - 20 mg/dL | + + + + | CREATININE PLASMA | 0.51 (L) | 0.70 - 1.30 mg/dL | | (LAB) | | | + + + + | EGFR - | >60 | >60 mL/min | | GABONESE | | | + + + + | EGFR NON | >60 | >60 mL/min | | -GABONESE | | | + + + + | SODIUM, PLASMA (LAB) | 138 | 136 - 145 mmol/L | + + + + | POTASSIUM, PLASMA | 3.4 | 3.4 - 5.0 mmol/L | | (LAB) | | | + + + + | CHLORIDE, PLASMA | 104 | 97 - 108 mmol/L | | (LAB) | | | + + + + | TOTAL CO2, PLASMA | 27 | 21 - 32 mmol/L | | (LAB) | | | + + + + | CALCIUM, PLASMA | 8.5 (L) | 8.6 - 10.2 mg/dL | | (LAB) | | | + + + + | ANION GAP | 7 | 4 - 11 mmol/L | + + + + | POTASSIUM CMNT | No Hemo | | + + + + + + + | Specimen | Performing Laboratory | + + + | Blood | [facility], [facility] [address] | | | [place] [address] | + + + + + | Narrative | + + | GFR is estimated using the MDRD equation recommended by the National Kidney Disease | | Education Program. Estimated GFR Interpretive Information: <60 mL/min/1.73 sq | | m Chronic Kidney Disease <15 mL/min/1.73 sq | | m Kidney Failure Estimated GFR greater that 60 mL/min/1.73 | | sq m is of limited clinical value. The MDRD equation is not valid in the following | | situations: - Patients under 18 years of age - Severe malnutrition or obesity - | | Vegetarian diet - Rapidly changing kidney function - Amputees, paraplegics, or other | | muscle-wasting diseses | + + CBC ONLY (10/12/2017 7:38 AM) + + + | Specimen | Performing Laboratory | + + + | Blood | | + + + + + | Narrative | + + | The following orders were created for panel order CBC ONLY. | | Procedure | | Abnormality Status | | --------- | | ------ CBC (HEMOGRAM) | | ONLY[[id number]] Abnormal Final | | result Please view results for these tests on the | | individual orders. | + + VANCOMYCIN, TROUGH (10/12/2017 2:48 AM) + +---------+ + | Component | Value | Ref Range | + +---------+ + | VANCOMYCIN, TROUGH | 7.2 (L) | 10.0 - 20.0 ug/mL | + +---------+ + + + + | Specimen | Performing Laboratory | + + + | Blood | [facility], [facility] [address] | | | [place] [address] | + + + + + | Narrative | + + | Please draw trough just prior to administering the 0300 dose on 10/12, thanks! | + + 12 LEAD ECG (10/11/2017 12:50 PM) + + + + | Component | Value | Ref Range | + + + + | VENTRICULAR RATE | 119 | bpm | + + + + | ATRIAL RATE | 119 | ms | + + + + | P-R INTERVAL | 164 | ms | + + + + | P AXIS | 13 | deg | + + + + | QRS DURATION | 121 | ms | + + + + | QT | 347 | ms | + + + + | QTCB | 489 | ms | + + + + | R AXIS | 102 | deg | + + + + | T AXIS | 29 | deg | + + + + | ECG IMPRESSION | Sinus tachycardia | | + + + + | ECG IMPRESSION | Right bundle branch block | | + + + + | ECG IMPRESSION | prolonged QT interval- ABNORMAL ECG - | | + + + + | ECG IMPRESSION | Electronically signed by: PAULO CAVAZOS | | | | 10-11-2017 16:37:07 | | + + + + + + + | Specimen | Performing Laboratory | + + + | | [facility] [address] [place] [address] | | | [place] [address] | + + + 12 LEAD ECG (10/11/2017 5:25 AM) + + + + | Component | Value | Ref Range | + + + + | VENTRICULAR RATE | 107 | bpm | + + + + | ATRIAL RATE | 107 | ms | + + + + | P-R INTERVAL | 134 | ms | + + + + | P AXIS | 67 | deg | + + + + | QRS DURATION | 120 | ms | + + + + | QT | 358 | ms | + + + + | QTCB | 477 | ms | + + + + | R AXIS | 102 | deg | + + + + | T AXIS | 21 | deg | + + + + | ECG IMPRESSION | Sinus tachycardia | | + + + + | ECG IMPRESSION | IVCD, consider RBBB | | + + + + | ECG IMPRESSION | Borderline prolonged QT interval- ABNORMAL | | | | ECG - | | + + + + | ECG IMPRESSION | Electronically signed by: PAULO CAVAZOS | | | | 10-11-2017 16:37:15 | | + + + + + + + | Specimen | Performing Laboratory | + + + | | [facility] [address] [place] [address] | | | [place] [address] | + + + CBC (HEMOGRAM) ONLY (10/11/2017 12:15 AM) + + + + | Component | Value | Ref Range | + + + + | WHITE CELL COUNT | 10.01 | 3.50 - 10.80 K/cu mm | + + + + | RED CELL COUNT | 3.79 (L) | 4.50 - 6.00 M/cu mm | + + + + | HEMOGLOBIN | 11.3 (L) | 13.5 - 17.5 g/dL | + + + + | HEMATOCRIT | 34.8 (L) | 41.0 - 53.0 % | + + + + | MCV | 91.8 | 80.0 - 100.0 fL | + + + + | MCHC | 32.5 | 32.0 - 36.0 g/dL | + + + + | RDW SD | 56.0 (H) | 35.1 - 46.3 fL | + + + + | PLATELET COUNT | 206 | 150 - 400 K/cu mm | + + + + | MPV | 9.2 (L) | 9.7 - 12.3 fL | + + + + | NRBC% | 0.0 | 0.0 - 0.3 % | + + + + | NRBC# | 0.00 | 0.00 - 0.02 K/cu mm | + + + + + + + | Specimen | Performing Laboratory | + + + | Blood | [facility], [facility] [place] [address] | | | [place] [address] | + + + + + | Narrative | + + | New reference ranges for MCV, MCHC, PLT, IG% and IG# effective 09/05/2017 | + + MAGNESIUM, PLASMA (10/11/2017 12:15 AM) + +-------+ + | Component | Value | Ref Range | + +-------+ + | MAGNESIUM,PLASMA | 1.7 | 1.6 - 2.6 mg/dL | + +-------+ + + + + | Specimen | Performing Laboratory | + + + | Blood | [facility] [address] | | | [place] [address] | + + + + + | Narrative | + + | Reference range change effective 12/11/16. | + + RENAL FUNCTION SET (NA,K,CL,CO2,BUN,CREAT,GLUC,CA,PHOS,ALB ) (10/11/2017 12:15 AM) + + + + | Component | Value | Ref Range | + + + + | GLUCOSE, PLASMA | 150 (H) | 70 - 99 mg/dL | | (LAB) | | | + + + + | BUN, PLASMA (LAB) | 11 | 6 - 20 mg/dL | + + + + | CREATININE PLASMA | 0.55 (L) | 0.70 - 1.30 mg/dL | | (LAB) | | | + + + + | EGFR - | >60 | >60 mL/min | | GABONESE | | | + + + + | EGFR NON | >60 | >60 mL/min | | -GABONESE | | | + + + + | SODIUM, PLASMA (LAB) | 139 | 136 - 145 mmol/L | + + + + | POTASSIUM, PLASMA | 3.8 | 3.4 - 5.0 mmol/L | | (LAB) | | | + + + + | CHLORIDE, PLASMA | 106 | 97 - 108 mmol/L | | (LAB) | | | + + + + | TOTAL CO2, PLASMA | 25 | 21 - 32 mmol/L | | (LAB) | | | + + + + | CALCIUM, PLASMA | 8.2 (L) | 8.6 - 10.2 mg/dL | | (LAB) | | | + + + + | CALCIUM(ALB | 9.2 | 8.6 - 10.2 mg/dL | | CORRECTED) | | | + + + + | ALBUMIN, PLASMA | 2.8 (L) | 3.5 - 4.7 g/dL | | (LAB) | | | + + + + | PHOSPHORUS, PLASMA | 3.5 | 2.4 - 4.7 mg/dL | | (LAB) | | | + + + + | POTASSIUM CMNT | No Hemo | | + + + + | ANION GAP | 8 | 4 - 11 mmol/L | + + + + | ANION GAP(ALB | 11 | 4 - 11 mmol/L | | CORRECTED) | | | + + + + + + + | Specimen | Performing Laboratory | + + + | Blood | [facility], [facility] [address] | | | [place] [address] | + + + + + | Narrative | + + | GFR is estimated using the MDRD equation recommended by the National Kidney Disease | | Education Program. Estimated GFR Interpretive Information: <60 mL/min/1.73 sq | | m Chronic Kidney Disease <15 mL/min/1.73 sq | | m Kidney Failure Estimated GFR greater that 60 mL/min/1.73 | | sq m is of limited clinical value. The MDRD equation is not valid in the following | | situations: - Patients under 18 years of age - Severe malnutrition or obesity - | | Vegetarian diet - Rapidly changing kidney function - Amputees, paraplegics, or other | | muscle-wasting diseses | + + CBC ONLY (10/11/2017 12:15 AM) + + + | Specimen | Performing Laboratory | + + + | Blood | | + + + + + | Narrative | + + | The following orders were created for panel order CBC ONLY. | | Procedure | | Abnormality Status | | --------- | | ------ CBC (HEMOGRAM) | | ONLY[[id number]] Abnormal Final | | result Please view results for these tests on the | | individual orders. | + + PROCEDURE NOTE (10/10/2017 10:00 PM) + + | Narrative | + + | Darius Link MD 10/12/2017 11:11 AM OPERATIVE REPORT DATE OF | | OPERATION: 10/10/2017 ATTENDING SURGEON: 1. Dr. Munoz HORSE RIDING COACH OR INSTRUCTOR: 1. Darius | | MD Nikolay INDICATIONS: Dysphagia and need for terminal block assembler nutrition access | | PREOPERATIVE DIAGNOSIS: 1.Dysphagia and need for terminal block assembler nutrition access | | POSTOPERATIVE DIAGNOSIS: 1.Same PROCEDURE(S) PERFORMED: 1. Open Gastrostomy tube | | placement with extensive lysis of adhesions FINDINGS: 1. Scared Open | | SPECIMENS:: 1.None DRAINS: 1.Gabriel-Oconnor Button Gastrostomy tube COMPLICATIONS: | | 1. None Immediately Apparent DISPOSITION: 1.Intubated to ICU TIMEOUT: | | Neurosurgery completed their portion of the procedure and prior to the beginning out | | portion of the procedurethe team paused to verify the patient | | | | s identity, the procedure to be performed (in accordance with the consent,) and the | | correct side/site. The patient was positioned appropriately. All relevant images and | | results were properly labeled and displayed. We addressed antibiotic prophylaxis and | | fluids for irrigation as applicable to this patient. Any safety precautions were | | addressed. PROCEDURE IN DETAIL: After neurosurgery completed their portion of | | the operation the patient was repositioned, redraped and antibiotics were | | administered. An upper midline incision was made and carried down to the subcutaneous | | tissue. The fascia and previous suture for the midline was seen and slowly entered | | using a 15 blade. The scar tissue was thick and we encountered mesh from a previous | | operation. We were able to find a window and enter the peritontium. There were | | extensive adhesions and the bowel, and omentum were stuck to the anterior abdominal | | wall. We Proceeded to lysis adhesions for 60 minutes in order to create a plane to | | the stomach. 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 There adhesions | | were dense and matted in order to identify the stomach 300 ml of saline was instilled | | to dilate the stomach. A gastrotomy was made and saline returned. A stab | | incision was made in the anterior abdominal wall and the Gabriel-oconnor button was advanced | | through this. The gastrotomy tube was then placed in the gastrotomy and saline | | instilled. Because of the difficult dissection we shot a tube and contrast appeared | | to be intraluminal. The stomach was then pexied to the anterior abdominal wall | | with 3-0 Silk suture. The midline incision was closed with running 0 Maxon suture | | and the skin closed with fernandez. This completed the operation and the patient was | | returned intubated to the ICU. | + + PROCEDURE NOTE (10/10/2017 7:45 PM) + + | Narrative | + + | Darius Link MD 10/10/2017 12:54 PM INPATIENT BRIEF OPERATIVE NOTE | | Procedure Date: 10/10/2017 Author: Darius Link MD Attending Physician: | | Dr. Munoz Assistants: Darius Link At (time), prior to the beginning of | | the procedure, the team paused to verify the patient | | | | s identity, the procedure to be performed (in accordance with the consent,) and the | | correct side/site. The patient was positioned appropriately. All relevant images and | | results were properly labeled and displayed. We addressed antibiotic prophylaxis and | | fluids for irrigation as applicable to this patient. Any safety precautions were | | addressed. Preoperative Diagnosis: Dysphagia Postoperative Diagnosis: Same | | Procedure Performed: Open Gastrostomy tube placement with extensive lysis of adhesions | | Anesthesia: GETA Estimated Blood Loss: 50 Specimens: None Implants: | | Gabriel-Oconnor 3.8cm Complications: None Immediately appartent Drains: none | | Disposition: TO ICU Findings: Mesh, extensive adhesions | + + PROCEDURE NOTE (10/10/2017 5:26 PM) + + | Narrative | + + | Cecilia Hernandez MD 10/10/2017 10:26 AM INPATIENT BRIEF OPERATIVE NOTE | | Procedure Date: 10/10/2017 Author: CECILIA HERNANDEZ MD Attending Physician: | | Magdiel Stock MD Assistants: Arben Hernandez MD Prior to the beginning of the | | procedure the team paused to verify the patient's identity, as well as the procedure | | to be performed and the correct side/site. All equipment required was ready and | | available. The patient was positioned appropriately. The following team members | | were present during the team pause: Neurosurgery, anesthesia, nursing, OR staff | | Preoperative Diagnosis: Cranioplasty infection; wound leakage Seizures | | Postoperative Diagnosis: same Procedure Performed: Right sided wound exploration | | Removal of synthetic cranioplasty Washout of epidural abscess Estimated Blood | | Loss: 200 mL Fluids: per anesthesia Specimens: multiple swabs and tissue | | samples sent to micro for specimen; Bone flap also sent to micro. | | Complications: none Drains: subgaleal JERONIMO drain to suction Disposition: direct | | to ICU Findings: Substantial purulence under pressure after bone flap removed. | | Multiple culture swabs sent of subgaleal space and epidural pus. Bone flap removed and | | sent to micro. Skin closed with interrupted nylons. Dictation to follow. | | [place] [id number] Chief Resident Neurosurgery | + + CBC (HEMOGRAM) ONLY (10/10/2017 2:23 PM) + + + + | Component | Value | Ref Range | + + + + | WHITE CELL COUNT | 9.71 | 3.50 - 10.80 K/cu mm | + + + + | RED CELL COUNT | 3.65 (L) | 4.50 - 6.00 M/cu mm | + + + + | HEMOGLOBIN | 10.9 (L) | 13.5 - 17.5 g/dL | + + + + | HEMATOCRIT | 34.0 (L) | 41.0 - 53.0 % | + + + + | MCV | 93.2 | 80.0 - 100.0 fL | + + + + | MCHC | 32.1 | 32.0 - 36.0 g/dL | + + + + | RDW SD | 55.3 (H) | 35.1 - 46.3 fL | + + + + | PLATELET COUNT | 184 | 150 - 400 K/cu mm | + + + + | MPV | 9.8 | 9.7 - 12.3 fL | + + + + | NRBC% | 0.0 | 0.0 - 0.3 % | + + + + | NRBC# | 0.00 | 0.00 - 0.02 K/cu mm | + + + + + + + | Specimen | Performing Laboratory | + + + | Blood | [facility], [facility] [address] [facility] | | | [place] [address] | + + + + + | Narrative | + + | New reference ranges for MCV, MCHC, PLT, IG% and IG# effective 09/05/2017 | + + CBC ONLY (10/10/2017 2:23 PM) + + + | Specimen | Performing Laboratory | + + + | Blood | | + + + + + | Narrative | + + | The following orders were created for panel order CBC ONLY. | | Procedure | | Abnormality Status | | --------- | | ------ CBC (HEMOGRAM) | | ONLY[[id number]] Abnormal Final | | result Please view results for these tests on the | | individual orders. | + + RENAL FUNCTION SET (NA,K,CL,CO2,BUN,CREAT,GLUC,CA,PHOS,ALB ) (10/10/2017 2:02 PM) + + + + | Component | Value | Ref Range | + + + + | GLUCOSE, PLASMA | 103 (H) | 70 - 99 mg/dL | | (LAB) | | | + + + + | BUN, PLASMA (LAB) | 14 | 6 - 20 mg/dL | + + + + | CREATININE PLASMA | 0.67 (L) | 0.70 - 1.30 mg/dL | | (LAB) | | | + + + + | EGFR - | >60 | >60 mL/min | | GABONESE | | | + + + + | EGFR NON | >60 | >60 mL/min | | -GABONESE | | | + + + + | SODIUM, PLASMA (LAB) | 142 | 136 - 145 mmol/L | + + + + | POTASSIUM, PLASMA | 4.2 | 3.4 - 5.0 mmol/L | | (LAB) | | | + + + + | CHLORIDE, PLASMA | 108 | 97 - 108 mmol/L | | (LAB) | | | + + + + | TOTAL CO2, PLASMA | 28 | 21 - 32 mmol/L | | (LAB) | | | + + + + | CALCIUM, PLASMA | 8.0 (L) | 8.6 - 10.2 mg/dL | | (LAB) | | | + + + + | CALCIUM(ALB | 9.0 | 8.6 - 10.2 mg/dL | | CORRECTED) | | | + + + + | ALBUMIN, PLASMA | 2.7 (L) | 3.5 - 4.7 g/dL | | (LAB) | | | + + + + | PHOSPHORUS, PLASMA | 4.0 | 2.4 - 4.7 mg/dL | | (LAB) | | | + + + + | POTASSIUM CMNT | No Hemo | | + + + + | ANION GAP | 6 | 4 - 11 mmol/L | + + + + | ANION GAP(ALB | 9 | 4 - 11 mmol/L | | CORRECTED) | | | + + + + + + + | Specimen | Performing Laboratory | + + + | Blood | [facility] [address] | | | [place] [address] | + + + + + | Narrative | + + | GFR is estimated using the MDRD equation recommended by the National Kidney Disease | | Education Program. Estimated GFR Interpretive Information: <60 mL/min/1.73 sq | | m Chronic Kidney Disease <15 mL/min/1.73 sq | | m Kidney Failure Estimated GFR greater that 60 mL/min/1.73 | | sq m is of limited clinical value. The MDRD equation is not valid in the following | | situations: - Patients under 18 years of age - Severe malnutrition or obesity - | | Vegetarian diet - Rapidly changing kidney function - Amputees, paraplegics, or other | | muscle-wasting diseses | + + MAGNESIUM, PLASMA (10/10/2017 2:02 PM) + +-------+ + | Component | Value | Ref Range | + +-------+ + | MAGNESIUM,PLASMA | 1.9 | 1.6 - 2.6 mg/dL | + +-------+ + + + + | Specimen | Performing Laboratory | + + + | Blood | [facility] [address] [facility] | | | [place] [address] | + + + + + | Narrative | + + | Reference range change effective 12/11/16. | + + OPERATION RECORD (10/10/2017 12:40 PM) + + | Procedure Note | + + | Magdiel Stock MD - 10/10/2017 12:40 PM PDT Date of Service: 10/10/2017 Attending | | Surgeon: Magdiel Stock MD Therapeutic Program Worker(s): Cecilia Hernandez, | | . Preoperative Diagnoses: 1. Cranioplasty [...] was also sent.Complications: None.Drains: | | Subgaleal JERONIMO drain to suction.Disposition: Direct to the neurologic [...] This is a 67-year-old male. Please see Epic for full details. He | | was [...] consent was signed.Procedure In | | Detail: [place] Temple was identified in the preoperative holding [...] and turned our attention to closure. A JERONIMO | | drain was tunneled posteriorly and [...] | | CraniCap was applied as well. JERONIMO bulb was placed to suction. The patient [...] | the note for this encounter.Sonal Nunez MDOHSU [id number] [facility] | | [place] [phone] Orina, MDFA/MODLDD: | | 10/10/2017 11:52:15DT: 10/10/2017 12:40:41Job #: [id number] | | | | | |I was present for the critical portions of the procedure as described in the note for this encounter. | | | |Magdiel Stock MD | | | |Magdiel Stock MD | |[address] | |[address] [facility] | |[facility] | |[place] [address] | |[phone] | | | | | |Magdiel Stock MD | |FAH/MODL | | | | | | /[id number] | + + X-RAY ABDOMEN 1 VIEW (10/10/2017 12:17 PM) + + | Narrative | + + | - At the time of the study, no professional interpretation was requested. - | + + X-RAY FLUOROSCOPY IN OR <= 1 HOUR (10/10/2017 12:16 PM) + + | Narrative | + + | - At the time of the study, no professional interpretation was requested. - | + + CULTURE, TISSUE (10/10/2017 9:03 AM) + + + + | Component | Value | Ref Range | + + + + | CULTURE RESULT | Pseudomonas aeruginosa (A) | | + + + + + + + | Specimen | Performing Laboratory | + + + | Tissue - Head | [facility] [address] [place], [place] | | | [address] | + + + + + | Narrative | + + | Culture Report: 1+ Pseudomonas aeruginosa No anaerobic organisms isolated Gram | | Stain: No squamous epithelial cells Few polymorphonuclear cells No organisms seen | + + + + + + [...] EXCEPT BLOOD, SKIN, HAIR, NAIL (10/10/2017 9:00 AM) + + + | Specimen | Performing Laboratory | + + + | Swab - Head | [facility] [address] [place] [address] | | | [address] | + + + + + | Narrative | + + | Culture Report: No fungus isolated at 3 weeks. | + + CULTURE, WOUND DEEP W/ ANAEROBE (10/10/2017 9:00 AM) + + + + | Component | Value | Ref Range | + + + + | CULTURE RESULT | Pseudomonas aeruginosa (A) | | + + + + + + + | Specimen | Performing Laboratory | + + + | Swab - Head | [facility] [place] [address] [place] [place], [place] | | | [address] | + + + + + | Narrative | + + | Culture Report: 1+ Pseudomonas aeruginosa Refer to culture collected 10/10/17 at | | 0903 for susceptibilities No anaerobic organisms isolated Gram Stain: No | | squamous epithelial cells Many polymorphonuclear cells No organisms seen | + + CULTURE, AFB (ALL SPEC TYPES EXCEPT BLOOD) (10/10/2017 9:00 AM) + + + | Specimen | Performing Laboratory | + + + | Swab - Head | [facility] [address] [place] [address] | | | [address] | + + + + + | Narrative | + + | Culture Report: No acid fast bacteria isolated at 6 weeks. AFB Smear: AFB not | | detected | + + CULTURE, FUNGAL EXCEPT BLOOD, SKIN, HAIR, NAIL (10/10/2017 9:00 AM) + + + | Specimen | Performing Laboratory | + + + | Swab - Head | [facility] [place] [address] [place], [place] | | | [address] | + + + + + | Narrative | + + | Culture Report: No fungus isolated at 3 weeks. | + + CULTURE, WOUND DEEP W/ ANAEROBE (10/10/2017 9:00 AM) + + + + | Component | Value | Ref Range | + + + + | CULTURE RESULT | Pseudomonas aeruginosa (A) | | + + + + + + + | Specimen | Performing Laboratory | + + + | Swab - Head | [facility] [place] [address] [place], [place] | | | [address] | + + + + + | Narrative | + + | Culture Report: Rare Pseudomonas aeruginosa Refer to culture collected 10/10/17 at | | 0903 for susceptibilities No anaerobic organisms isolated Gram Stain: No | | squamous epithelial cells Many polymorphonuclear cells No organisms seen | + + CULTURE, AFB (ALL SPEC TYPES EXCEPT BLOOD) (10/10/2017 9:00 AM) + + + | Specimen | Performing Laboratory | + + + | Swab - Head | [facility] [place] [address] [place] [address] [place], [place] | | | [address] | + + + + + | Narrative | + + | Culture Report: No acid fast bacteria isolated at 6 weeks. AFB Smear: AFB not | | detected | + + CULTURE, TISSUE (10/10/2017 8:50 AM) + + + + | Component | Value | Ref Range | + + + + | CULTURE RESULT | Pseudomonas aeruginosa (A) | | + + + + + + + | Specimen | Performing Laboratory | + + + | Tissue - Head | [facility] [address] [place], [place] | | | [address] | + + + + + | Narrative | + + | Culture Report: Rare Pseudomonas aeruginosa Refer to culture collected 10/10/17 at | | 0903 for susceptibilities No anaerobic organisms isolated Gram Stain: No | | squamous epithelial cells Few polymorphonuclear cells No organisms seen | + + CULTURE, TISSUE (10/10/2017 8:41 AM) + + + | Specimen | Performing Laboratory | + + + | Tissue - Head | [facility] [place] [address] [address] [place], [place] | | | [address] | + + + + + | Narrative | + + | Culture Report: No growth No anaerobic organisms isolated Gram Stain: No | | squamous epithelial cells No polymorphonuclear cells No organisms seen | + + CULTURE, FUNGAL EXCEPT BLOOD, SKIN, HAIR, NAIL (10/10/2017 8:38 AM) + + + | Specimen | Performing Laboratory | + + + | Swab - Head | [facility] [place] [address] [place], [place] | | | [address] | + + + + + | Narrative | + + | Culture Report: No fungus isolated at 3 weeks. | + + CULTURE, WOUND DEEP W/ ANAEROBE (10/10/2017 8:38 AM) + + + + | Component | Value | Ref Range | + + + + | CULTURE RESULT | Pseudomonas aeruginosa (A) | | + + + + + + + | Specimen | Performing Laboratory | + + + | Swab - Head | [facility] [address] [place], [place] | | | [address] | + + + + + | Narrative | + + | Culture Report: 1+ Pseudomonas aeruginosa Refer to culture collected 10/10/17 at | | 0903 for susceptibilities No anaerobic organisms isolated Gram Stain: No | | squamous epithelial cells Moderate polymorphonuclear cells No organisms seen | + + CULTURE, AFB (ALL SPEC TYPES EXCEPT BLOOD) (10/10/2017 8:38 AM) + + + | Specimen | Performing Laboratory | + + + | Swab - Head | [facility] [address] [place], [place] | | | [address] | + + + + + | Narrative | + + | Culture Report: No acid fast bacteria isolated at 6 weeks. AFB Smear: AFB not | | detected | + + CULTURE, FUNGAL EXCEPT BLOOD, SKIN, HAIR, NAIL (10/10/2017 8:38 AM) + + + | Specimen | Performing Laboratory | + + + | Swab - Head | [facility] [address] [place], [place] | | | [address] | + + + + + | Narrative | + + | Culture Report: No fungus isolated at 3 weeks. | + + CULTURE, WOUND DEEP W/ ANAEROBE (10/10/2017 8:38 AM) + + + + | Component | Value | Ref Range | + + + + | CULTURE RESULT | Pseudomonas aeruginosa (A) | | + + + + + + + | Specimen | Performing Laboratory | + + + | Swab - Head | [facility] [place] [address] [place], [place] | | | [address] | + + + + + | Narrative | + + | Culture Report: 1+ Pseudomonas aeruginosa Refer to culture collected 10/10/17 at | | 0903 for susceptibilities No anaerobic organisms isolated Gram Stain: No | | squamous epithelial cells Moderate polymorphonuclear cells No organisms seen | + + CULTURE, AFB (ALL SPEC TYPES EXCEPT BLOOD) (10/10/2017 8:38 AM) + + + | Specimen | Performing Laboratory | + + + | Swab - Head | [facility] [place] [address] [place], [place] | | | [address] | + + + + + | Narrative | + + | Culture Report: No acid fast bacteria isolated at 6 weeks. AFB Smear: AFB not | | detected | + + CULTURE, FUNGAL EXCEPT BLOOD, SKIN, HAIR, NAIL (10/10/2017 8:31 AM) + + + | Specimen | Performing Laboratory | + + + | Swab - Head | [facility] [place] [address] [place], [place] | | | [address] | + + + + + | Narrative | + + | Culture Report: No fungus isolated at 3 weeks. | + + CULTURE, WOUND DEEP W/ ANAEROBE (10/10/2017 8:31 AM) + + + + | Component | Value | Ref Range | + + + + | CULTURE RESULT | Pseudomonas aeruginosa (A) | | + + + + + + + | Specimen | Performing Laboratory | + + + | Swab - Head | [facility] [address] [place], [place] | | | [address] | + + + + + | Narrative | + + | Culture Report: 1+ Pseudomonas aeruginosa Refer to culture collected 10/10/17 at | | 0903 for susceptibilities No anaerobic organisms isolated Gram Stain: No | | squamous epithelial cells Moderate polymorphonuclear cells No organisms seen | + + CULTURE, AFB (ALL SPEC TYPES EXCEPT BLOOD) (10/10/2017 8:31 AM) + + + | Specimen | Performing Laboratory | + + + | Swab - Head | [facility] [address] [place], [place] | | | [address] | + + + + + | Narrative | + + | Culture Report: No acid fast bacteria isolated at 6 weeks. 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 FINDINGS: BRAIN: Postsurgical changes of right hemicranioplasty are | | again noted with stable underlying extra-axial fluid collection along the right | | frontoparietal lobes which measures 11 mm in thickness. Right temporal encephalomalacia | | is again noted. There is 2 mm leftward midline shift, unchanged. The ventricles are | | stable in size and morphology. No evidence of hemorrhage, mass, or acute infarction. | | SOFT TISSUES: A nasogastric tube is partially visualized. SKULL AND SKULL BASE: | | Postsurgical changes of right hemicranial plasty are again noted. Mastoids and middle | | ears are unremarkable. FACE/ORBITS: Visualized portions are unremarkable. PARANASAL | | SINUSES: There is mild mucosal thickening within the maxillary sinuses with a small | | retention cyst again noted within the left maxillary sinus. IMPRESSION: Stable | | postsurgical changes of right hemicranioplasty with underlying extra-axial fluid | | collection and unchanged 2 mm leftward midline shift. I have personally reviewed the | | images and, if necessary, edited the report. I agree with the report as now presented. | | Final signature: Daniel Armijo MD 10/10/2017 8:22 AM Preliminary: Shun | Prabhakar Carpio MD Dictation initiated: Shun Carpio MD 10/10/2017 3:05 AM | + + + + | Procedure Note [...] MD 10/10/2017 3:05 AM | + + VALPROIC ACID, PLASMA (10/10/2017 2:40 AM) + + + + | Component | Value | Ref Range | + + + + | VALPROIC ACID | 23.8 (L) | 50.0 - 100.0 ug/mL | + + + + + + + | Specimen | Performing Laboratory | + + + | Blood | [facility], [address] | | | [place] [address] | + + + CBC (HEMOGRAM) ONLY (10/10/2017 2:38 AM) + + + + | Component | Value | Ref Range | + + + + | WHITE CELL COUNT | 9.13 | 3.50 - 10.80 K/cu mm | + + + + | RED CELL COUNT | 4.43 (L) | 4.50 - 6.00 M/cu mm | + + + + | HEMOGLOBIN | 13.0 (L) | 13.5 - 17.5 g/dL | + + + + | HEMATOCRIT | 41.7 | 41.0 - 53.0 % | + + + + | MCV | 94.1 | 80.0 - 100.0 fL | + + + + | MCHC | 31.2 (L) | 32.0 - 36.0 g/dL | + + + + | RDW SD | 57.5 (H) | 35.1 - 46.3 fL | + + + + | PLATELET COUNT | 221 | 150 - 400 K/cu mm | + + + + | MPV | 9.9 | 9.7 - 12.3 fL | + + + + | NRBC% | 0.0 | 0.0 - 0.3 % | + + + + | NRBC# | 0.00 | 0.00 - 0.02 K/cu mm | + + + + + + + | Specimen | Performing Laboratory | + + + | Blood | [facility], [address] [address] [facility] | | | [place] [address] | + + + + + | Narrative | + + | New reference ranges for MCV, MCHC, PLT, IG% and IG# effective 09/05/2017 | + + CBC ONLY (10/10/2017 2:38 AM) + + + | Specimen | Performing Laboratory | + + + | Blood | | + + + + + | Narrative | + + | The following orders were created for panel order CBC ONLY. | | Procedure | | Abnormality Status | | --------- | | ------ CBC (HEMOGRAM) | | ONLY[[id number]] Abnormal Final | | result Please view results for these tests on the | | individual orders. | + + MAGNESIUM, PLASMA (10/10/2017 2:36 AM) + +-------+ + | Component | Value | Ref Range | + +-------+ + | MAGNESIUM,PLASMA | 2.2 | 1.6 - 2.6 mg/dL | + +-------+ + + + + | Specimen | Performing Laboratory | + + + | Blood | [facility], [facility] [address] [address] | | | [place] [address] | + + + + + | Narrative | + + | Reference range change effective 12/11/16. | + + RENAL FUNCTION SET (NA,K,CL,CO2,BUN,CREAT,GLUC,CA,PHOS,ALB ) (10/10/2017 2:36 AM) + + + + | Component | Value | Ref Range | + + + + | GLUCOSE, PLASMA | 115 (H) | 70 - 99 mg/dL | | (LAB) | | | + + + + | BUN, PLASMA (LAB) | 20 | 6 - 20 mg/dL | + + + + | CREATININE PLASMA | 0.63 (L) | 0.70 - 1.30 mg/dL | | (LAB) | | | + + + + | EGFR - | >60 | >60 mL/min | | GABONESE | | | + + + + | EGFR NON | >60 | >60 mL/min | | -GABONESE | | | + + + + | SODIUM, PLASMA (LAB) | 141 | 136 - 145 mmol/L | + + + + | POTASSIUM, PLASMA | 3.6 | 3.4 - 5.0 mmol/L | | (LAB) | | | + + + + | CHLORIDE, PLASMA | 102 | 97 - 108 mmol/L | | (LAB) | | | + + + + | TOTAL CO2, PLASMA | 22 | 21 - 32 mmol/L | | (LAB) | | | + + + + | CALCIUM, PLASMA | 8.9 | 8.6 - 10.2 mg/dL | | (LAB) | | | + + + + | CALCIUM(ALB | 9.4 | 8.6 - 10.2 mg/dL | | CORRECTED) | | | + + + + | ALBUMIN, PLASMA | 3.4 (L) | 3.5 - 4.7 g/dL | | (LAB) | | | + + + + | PHOSPHORUS, PLASMA | 3.8 | 2.4 - 4.7 mg/dL | | (LAB) | | | + + + + | POTASSIUM CMNT | No Hemo | | + + + + | ANION GAP | 17 (H) | 4 - 11 mmol/L | + + + + | ANION GAP(ALB | 18 (H) | 4 - 11 mmol/L | | CORRECTED) | | | + + + + + + + | Specimen | Performing Laboratory | + + + | Blood | [facility], [facility] [address] [facility] | | | [facility] [address] | + + + + + | Narrative | + + | GFR is estimated using the MDRD equation recommended by the National Kidney Disease | | Education Program. Estimated GFR Interpretive Information: <60 mL/min/1.73 sq | | m Chronic Kidney Disease <15 mL/min/1.73 sq | | m Kidney Failure Estimated GFR greater that 60 mL/min/1.73 | | sq m is of limited clinical value. The MDRD equation is not valid in the following | | situations: - Patients under 18 years of age - Severe malnutrition or obesity - | | Vegetarian diet - Rapidly changing kidney function - Amputees, paraplegics, or other | | muscle-wasting diseses | + + 12 LEAD ECG (10/10/2017 2:08 AM) + + + + | Component | Value | Ref Range | + + + + | VENTRICULAR RATE | 117 | bpm | + + + + | ATRIAL RATE | 118 | ms | + + + + | P-R INTERVAL | 139 | ms | + + + + | P AXIS | 84 | deg | + + + + | QRS DURATION | 134 | ms | + + + + | QT | 354 | ms | + + + + | QTCB | 493 | ms | + + + + | R AXIS | 107 | deg | + + + + | T AXIS | 40 | deg | + + + + | ECG IMPRESSION | Sinus tachycardia | | + + + + | ECG IMPRESSION | Right bundle branch block | | + + + + | ECG IMPRESSION | prolonged QT interval- ABNORMAL ECG - | | + + + + | ECG IMPRESSION | Electronically signed by: PAULO CAVAZOS | | | | 10-11-2017 16:38:04 | | + + + + + + + | Specimen | Performing Laboratory | + + + | | [facility] [address] [place] [address] | | | [place] [address] | + + + PRODUCT - RED CELLS LEUKOREDUCED (10/09/2017 5:12 PM) + + + + | Component | Value | Ref Range | + + + + | PRODUCT DESCRIPTION | -1 RED BLOOD CELL ADENINE-SALINE ADDED | | | | LEUKOCYTE | | + + + + | PRODUCT UNIT # | [id number] | | + + + + | UNIT ABO | O | | + + + + | UNIT RH | POS | | + + + + | STATUS OF UNIT | Returned to Blood Bank | | + + + + | EXPIRATION DATE | [id number] | | + + + + | BLOOD TYPE BARCODE | 5100 | | + + + + | BLOOD PRODUCT CODE | [id number] | | + + + + + + + | Specimen | Performing Laboratory | + + + | | [facility], [facility] [address] [facility] | | | [place] [address] | + + + PRODUCT - RED CELLS LEUKOREDUCED (10/09/2017 5:12 PM) + + + + | Component | Value | Ref Range | + + + + | PRODUCT DESCRIPTION | -1 RED BLOOD CELL ADENINE-SALINE ADDED | | | | LEUKOCYTE | | + + + + | PRODUCT UNIT # | [id number] | | + + + + | UNIT ABO | O | | + + + + | UNIT RH | POS | | + + + + | STATUS OF UNIT | Returned to Blood Bank | | + + + + | EXPIRATION DATE | [id number] | | + + + + | BLOOD TYPE BARCODE | 5100 | | + + + + | BLOOD PRODUCT CODE | [id number] | | + + + + + + + | Specimen | Performing Laboratory | + + + | | [facility], [facility] [address] [facility] | | | [place] [address] | + + + ANTIBODY IDENTIFICATION (10/09/2017 5:01 PM) + + + + | Component | Value | Ref Range | + + + + | ANTIBODY 1 | Antibody present, unable to identify | | + + + + + + + | Specimen | Performing Laboratory | + + + | Blood | [facility], [facility] [address] [facility] | | | [place] [address] | + + + ANTIBODY SCREEN (10/09/2017 5:01 PM) + + + + | Component | Value | Ref Range | + + + + | Antibody Screen | Positive | | + + + + + + + | Specimen | Performing Laboratory | + + + | Blood | [facility], [facility] [address] [facility] | | | [place] [address] | + + + ABO & RH TYPE (10/09/2017 5:01 PM) + + + + | Component | Value | Ref Range | + + + + | ABO Group | O | | + + + + | Rh Type | Positive | | + + + + + + + | Specimen | Performing Laboratory | + + + | Blood | [facility], [facility] [address] [facility] | | | [place] [address] | + + + TYPE AND SCREEN (10/09/2017 5:01 PM) + + + | Specimen | Performing Laboratory | + + + | Blood | | + + + + + | Narrative | + + | The following orders were created for panel order TYPE AND SCREEN. | | Procedure | | Abnormality Status | | --------- | | ------ ABO & RH | | TYPE[[id number]] F | | inal result ANTIBODY | | SCREEN[[id number]] Fin | | al result Please view results for these tests on the | | individual orders. | + + COAGULOPATHY PANEL (INR,APTT,FIBRINOGEN) (10/09/2017 5:01 PM) + + + + | Component | Value | Ref Range | + + + + | INR | 1.03 | 0.90 - 1.20 INR | + + + + | APTT | 30.9 | 26.0 - 36.0 seconds | + + + + | FIBRINOGEN LEVEL | 371Comment: New Reference Ranges as of | 150 - 450 mg/dL | | | 09/02/2017. | | + + + + + + + | Specimen | Performing Laboratory | + + + | Blood | [facility] [address] [place] [address] | | | [place] [address] | + + + + + | Narrative | + + | INR Therapeutic ranges for full anticoagulation: INR for Venous | | Thromboembolism (2.0 - 3.0) INR INR for most patients with | | mech. valves (2.5 - 3.5) INR APTT Therapeutic | | Range: (75 - 120) sec Heparin levels | | of 0.35 - 0.7 U/mL | + + 12 LEAD ECG (10/09/2017 10:03 AM) + + + + | Component | Value | Ref Range | + + + + | VENTRICULAR RATE | 61 | bpm | + + + + | ATRIAL RATE | 60 | ms | + + + + | P-R INTERVAL | 138 | ms | + + + + | P AXIS | 54 | deg | + + + + | QRS DURATION | 123 | ms | + + + + | QT | 454 | ms | + + + + | QTCB | 457 | ms | + + + + | R AXIS | 82 | deg | + + + + | T AXIS | 38 | deg | + + + + | ECG IMPRESSION | Sinus rhythm | | + + + + | ECG IMPRESSION | Right bundle branch block | | + + + + | ECG IMPRESSION | Borderline ST elevation, anterolateral | | | | leads- ABNORMAL ECG - | | + + + + | ECG IMPRESSION | Electronically signed by: GABRIELA VANN | | | | 10-09-2017 10:52:00 | | + + + + + + + | Specimen | Performing Laboratory | + + + | | [facility] [address] [place] [address] | | | [place] [address] | + + + VASC LAB VENOUS DUPLEX LOWER EXTREMITY BILAT COMP (10/08/2017 10:05 AM) + + + | Specimen | Performing Laboratory | + + + | | [facility] VASC US | + + + + + | Narrative | + + | Bilateral: The duplex scanner was used to examine the deep and superficial veins of | | the right and left lower extremities. The veins are patent bilaterally with normal | | flow and responses to augmentation and compression maneuvers and no thrombus is noted. | | Conclusions: A normal venous examination of the bilateral lower extremities. No | | venous thrombosis was detected. I have personally reviewed the images and, | | if necessary, edited the report. I agree with the report as now presented. | + + + + | Procedure Note | + + | 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, [employer] In Interface - 10/08/2017 10:47 AM [...] report as now presented. | + + CAPILLARY BLOOD GLUCOSE (NO CHG), POC (10/08/2017 6:20 AM) + +---------+ + | Component | Value | Ref Range | + +---------+ + | BLOOD GLUCOSE, POC | 102 (H) | 70 - 99 mg/dL | + +---------+ + + + + | Specimen | Performing Laboratory | + + + | | [facility] POINT [facility] CARE TESTS [address] | | | [place] [address] | + + + CBC (HEMOGRAM) ONLY (10/08/2017 6:00 AM) + + + + | Component | Value | Ref Range | + + + + | WHITE CELL COUNT | 7.44 | 3.50 - 10.80 K/cu mm | + + + + | RED CELL COUNT | 4.33 (L) | 4.50 - 6.00 M/cu mm | + + + + | HEMOGLOBIN | 12.9 (L) | 13.5 - 17.5 g/dL | + + + + | HEMATOCRIT | 39.9 (L) | 41.0 - 53.0 % | + + + + | MCV | 92.1 | 80.0 - 100.0 fL | + + + + | MCHC | 32.3 | 32.0 - 36.0 g/dL | + + + + | RDW SD | 56.8 (H) | 35.1 - 46.3 fL | + + + + | PLATELET COUNT | 203 | 150 - 400 K/cu mm | + + + + | MPV | 9.3 (L) | 9.7 - 12.3 fL | + + + + | NRBC% | 0.0 | 0.0 - 0.3 % | + + + + | NRBC# | 0.00 | 0.00 - 0.02 K/cu mm | + + + + + + + | Specimen | Performing Laboratory | + + + | Blood | [facility], [place] [address] [facility] | | | [place] [address] | + + + + + | Narrative | + + | New reference ranges for MCV, MCHC, PLT, IG% and IG# effective 09/05/2017 | + + MAGNESIUM, PLASMA (10/08/2017 6:00 AM) + +-------+ + | Component | Value | Ref Range | + +-------+ + | MAGNESIUM,PLASMA | 2.2 | 1.6 - 2.6 mg/dL | + +-------+ + + + + | Specimen | Performing Laboratory | + + + | Blood | [facility], [facility] [address] [place] [address] | | | [place] [address] | + + + + + | Narrative | + + | Reference range change effective 12/11/16. | + + CBC ONLY (10/08/2017 6:00 AM) + + + | Specimen | Performing Laboratory | + + + | Blood | | + + + + + | Narrative | + + | The following orders were created for panel order CBC ONLY. | | Procedure | | Abnormality Status | | --------- | | ------ CBC (HEMOGRAM) | | ONLY[[id number]] Abnormal Final | | result Please view results for these tests on the | | individual orders. | + + RENAL FUNCTION SET (NA,K,CL,CO2,BUN,CREAT,GLUC,CA,PHOS,ALB ) (10/08/2017 6:00 AM) + + + + | Component | Value | Ref Range | + + + + | GLUCOSE, PLASMA | 91 | 70 - 99 mg/dL | | (LAB) | | | + + + + | BUN, PLASMA (LAB) | 19 | 6 - 20 mg/dL | + + + + | CREATININE PLASMA | 0.64 (L) | 0.70 - 1.30 mg/dL | | (LAB) | | | + + + + | EGFR - | >60 | >60 mL/min | | GABONESE | | | + + + + | EGFR NON | >60 | >60 mL/min | | -GABONESE | | | + + + + | SODIUM, PLASMA (LAB) | 139 | 136 - 145 mmol/L | + + + + | POTASSIUM, PLASMA | 4.1 | 3.4 - 5.0 mmol/L | | (LAB) | | | + + + + | CHLORIDE, PLASMA | 105 | 97 - 108 mmol/L | | (LAB) | | | + + + + | TOTAL CO2, PLASMA | 27 | 21 - 32 mmol/L | | (LAB) | | | + + + + | CALCIUM, PLASMA | 9.1 | 8.6 - 10.2 mg/dL | | (LAB) | | | + + + + | CALCIUM(ALB | 9.7 | 8.6 - 10.2 mg/dL | | CORRECTED) | | | + + + + | ALBUMIN, PLASMA | 3.3 (L) | 3.5 - 4.7 g/dL | | (LAB) | | | + + + + | PHOSPHORUS, PLASMA | 3.7 | 2.4 - 4.7 mg/dL | | (LAB) | | | + + + + | POTASSIUM CMNT | No Hemo | | + + + + | ANION GAP | 7 | 4 - 11 mmol/L | + + + + | ANION GAP(ALB | 8 | 4 - 11 mmol/L | | CORRECTED) | | | + + + + + + + | Specimen | Performing Laboratory | + + + | Blood | [facility], [address] [facility] | | | [place] [address] | + + + + + | Narrative | + + | GFR is estimated using the MDRD equation recommended by the National Kidney Disease | | Education Program. Estimated GFR Interpretive Information: <60 mL/min/1.73 sq | | m Chronic Kidney Disease <15 mL/min/1.73 sq | | m Kidney Failure Estimated GFR greater that 60 mL/min/1.73 | | sq m is of limited clinical value. The MDRD equation is not valid in the following | | situations: - Patients under 18 years of age - Severe malnutrition or obesity - | | Vegetarian diet - Rapidly changing kidney function - Amputees, paraplegics, or other | | muscle-wasting diseses | + + CAPILLARY BLOOD GLUCOSE (NO CHG), POC (10/08/2017 12:07 AM) + +---------+ + | Component | Value | Ref Range | + +---------+ + | BLOOD GLUCOSE, POC | 125 (H) | 70 - 99 mg/dL | + +---------+ + + + + | Specimen | Performing Laboratory | + + + | | [facility], POINT OF CARE TESTS [address] | | | [place] [address] | + + + CAPILLARY BLOOD GLUCOSE (NO CHG), POC (10/07/2017 10:30 PM) + +---------+ + | Component | Value | Ref Range | + +---------+ + | BLOOD GLUCOSE, POC | 173 (H) | 70 - 99 mg/dL | + +---------+ + + + + | Specimen | Performing Laboratory | + + + | | [facility] [address] | | | [place] [address] | + + + CAPILLARY BLOOD GLUCOSE (NO CHG), POC (10/07/2017 6:05 PM) + +---------+ + | Component | Value | Ref Range | + +---------+ + | BLOOD GLUCOSE, POC | 129 (H) | 70 - 99 mg/dL | + +---------+ + + + + | Specimen | Performing Laboratory | + + + | | [facility] [place], POINT OF CARE TESTS [address] | | | [place] [address] | + + + CAPILLARY BLOOD GLUCOSE (NO CHG), POC (10/07/2017 11:43 AM) + +---------+ + | Component | Value | Ref Range | + +---------+ + | BLOOD GLUCOSE, POC | 142 (H) | 70 - 99 mg/dL | + +---------+ + + + + | Specimen | Performing Laboratory | + + + | | [facility] [place] [place], POINT OF CARE TESTS [address] | | | [place] [address] | + + + CAPILLARY BLOOD GLUCOSE (NO CHG), POC (10/07/2017 6:33 AM) + +---------+ + | Component | Value | Ref Range | + +---------+ + | BLOOD GLUCOSE, POC | 117 (H) | 70 - 99 mg/dL | + +---------+ + + + + | Specimen | Performing Laboratory | + + + | | [facility], POINT OF CARE TESTS [address] | | | [place] [address] | + + + CBC (HEMOGRAM) ONLY (10/07/2017 5:05 AM) + + + + | Component | Value | Ref Range | + + + + | WHITE CELL COUNT | 8.57 | 3.50 - 10.80 K/cu mm | + + + + | RED CELL COUNT | 4.39 (L) | 4.50 - 6.00 M/cu mm | + + + + | HEMOGLOBIN | 13.1 (L) | 13.5 - 17.5 g/dL | + + + + | HEMATOCRIT | 40.1 (L) | 41.0 - 53.0 % | + + + + | MCV | 91.3 | 80.0 - 100.0 fL | + + + + | MCHC | 32.7 | 32.0 - 36.0 g/dL | + + + + | RDW SD | 56.6 (H) | 35.1 - 46.3 fL | + + + + | PLATELET COUNT | 203 | 150 - 400 K/cu mm | + + + + | MPV | 9.5 (L) | 9.7 - 12.3 fL | + + + + | NRBC% | 0.0 | 0.0 - 0.3 % | + + + + | NRBC# | 0.00 | 0.00 - 0.02 K/cu mm | + + + + + + + | Specimen | Performing Laboratory | + + + | Blood | [facility], [address] [address] [facility] [address] | | | [place] [address] | + + + + + | Narrative | + + | New reference ranges for MCV, MCHC, PLT, IG% and IG# effective 09/05/2017 | + + MAGNESIUM, PLASMA (10/07/2017 5:05 AM) + +-------+ + | Component | Value | Ref Range | + +-------+ + | MAGNESIUM,PLASMA | 2.1 | 1.6 - 2.6 mg/dL | + +-------+ + + + + | Specimen | Performing Laboratory | + + + | Blood | [facility], [facility] [address] [place] [address] | | | [place] [address] | + + + + + | Narrative | + + | Reference range change effective 12/11/16. | + + CBC ONLY (10/07/2017 5:05 AM) + + + | Specimen | Performing Laboratory | + + + | Blood | | + + + + + | Narrative | + + | The following orders were created for panel order CBC ONLY. | | Procedure | | Abnormality Status | | --------- | | ------ CBC (HEMOGRAM) | | ONLY[] Abnormal Final | | result Please view results for these tests on the | | individual orders. | + + RENAL FUNCTION SET (NA,K,CL,CO2,BUN,CREAT,GLUC,CA,PHOS,ALB ) (10/07/2017 5:05 AM) + + + + | Component | Value | Ref Range | + + + + | GLUCOSE, PLASMA | 118 (H) | 70 - 99 mg/dL | | (LAB) | | | + + + + | BUN, PLASMA (LAB) | 26 (H) | 6 - 20 mg/dL | + + + + | CREATININE PLASMA | 0.50 (L) | 0.70 - 1.30 mg/dL | | (LAB) | | | + + + + | EGFR - | >60 | >60 mL/min | | GABONESE | | | + + + + | EGFR NON | >60 | >60 mL/min | | -GABONESE | | | + + + + | SODIUM, PLASMA (LAB) | 141 | 136 - 145 mmol/L | + + + + | POTASSIUM, PLASMA | 3.6 | 3.4 - 5.0 mmol/L | | (LAB) | | | + + + + | CHLORIDE, PLASMA | 104 | 97 - 108 mmol/L | | (LAB) | | | + + + + | TOTAL CO2, PLASMA | 31 | 21 - 32 mmol/L | | (LAB) | | | + + + + | CALCIUM, PLASMA | 9.1 | 8.6 - 10.2 mg/dL | | (LAB) | | | + + + + | CALCIUM(ALB | 9.6 | 8.6 - 10.2 mg/dL | | CORRECTED) | | | + + + + | ALBUMIN, PLASMA | 3.4 (L) | 3.5 - 4.7 g/dL | | (LAB) | | | + + + + | PHOSPHORUS, PLASMA | 3.7 | 2.4 - 4.7 mg/dL | | (LAB) | | | + + + + | POTASSIUM CMNT | No Hemo | | + + + + | ANION GAP | 6 | 4 - 11 mmol/L | + + + + | ANION GAP(ALB | 7 | 4 - 11 mmol/L | | CORRECTED) | | | + + + + + + + | Specimen | Performing Laboratory | + + + | Blood | [facility], [address] [address] [facility] | | | [place] [address] | + + + + + | Narrative | + + | GFR is estimated using the MDRD equation recommended by the National Kidney Disease | | Education Program. Estimated GFR Interpretive Information: <60 mL/min/1.73 sq | | m Chronic Kidney Disease <15 mL/min/1.73 sq | | m Kidney Failure Estimated GFR greater that 60 mL/min/1.73 | | sq m is of limited clinical value. The MDRD equation is not valid in the following | | situations: - Patients under 18 years of age - Severe malnutrition or obesity - | | Vegetarian diet - Rapidly changing kidney function - Amputees, paraplegics, or other | | muscle-wasting diseses | + + CAPILLARY BLOOD GLUCOSE (NO CHG), POC (10/06/2017 11:41 PM) + +-------+ + | Component | Value | Ref Range | + +-------+ + | BLOOD GLUCOSE, POC | 99 | 70 - 99 mg/dL | + +-------+ + + + + | Specimen | Performing Laboratory | + + + | | [facility], POINT OF CARE TESTS [address] | | | [place] [address] | + + + CAPILLARY BLOOD GLUCOSE (NO CHG), POC (10/06/2017 6:03 PM) + +---------+ + | Component | Value | Ref Range | + +---------+ + | BLOOD GLUCOSE, POC | 107 (H) | 70 - 99 mg/dL | + +---------+ + + + + | Specimen | Performing Laboratory | + + + | | [facility] [place], POINT OF CARE TESTS [address] | | | [place] [address] | + + + 12 LEAD ECG (10/06/2017 1:34 PM) + + + + | Component | Value | Ref Range | + + + + | VENTRICULAR RATE | 55 | bpm | + + + + | ATRIAL RATE | 56 | ms | + + + + | P-R INTERVAL | 139 | ms | + + + + | P AXIS | 79 | deg | + + + + | QRS DURATION | 124 | ms | + + + + | QT | 445 | ms | + + + + | QTCB | 427 | ms | + + + + | R AXIS | 81 | deg | + + + + | T AXIS | 53 | deg | + + + + | ECG IMPRESSION | Sinus bradycardia | | + + + + | ECG IMPRESSION | Right bundle branch block- ABNORMAL ECG - | | + + + + | ECG IMPRESSION | Electronically signed by: AJAY DE LOS SANTOS | | | | 10-06-2017 19:54:42 | | + + + + + + + | Specimen | Performing Laboratory | + + + | | [facility] [address] [place] [address] | | | [place] [address] | + + + CAPILLARY BLOOD GLUCOSE (NO CHG), POC (10/06/2017 12:03 PM) + +-------+ + | Component | Value | Ref Range | + +-------+ + | BLOOD GLUCOSE, POC | 87 | 70 - 99 mg/dL | + +-------+ + + + + | Specimen | Performing Laboratory | + + + | | [facility]NA[facility], POINT OF CARE TESTS [address] | | | [place] [address] | + + + CBC (HEMOGRAM) ONLY (10/06/2017 7:25 AM) + + + + | Component | Value | Ref Range | + + + + | WHITE CELL COUNT | 8.53 | 3.50 - 10.80 K/cu mm | + + + + | RED CELL COUNT | 4.22 (L) | 4.50 - 6.00 M/cu mm | + + + + | HEMOGLOBIN | 12.5 (L) | 13.5 - 17.5 g/dL | + + + + | HEMATOCRIT | 39.2 (L) | 41.0 - 53.0 % | + + + + | MCV | 92.9 | 80.0 - 100.0 fL | + + + + | MCHC | 31.9 (L) | 32.0 - 36.0 g/dL | + + + + | RDW SD | 58.0 (H) | 35.1 - 46.3 fL | + + + + | PLATELET COUNT | 214 | 150 - 400 K/cu mm | + + + + | MPV | 9.9 | 9.7 - 12.3 fL | + + + + | NRBC% | 0.0 | 0.0 - 0.3 % | + + + + | NRBC# | 0.00 | 0.00 - 0.02 K/cu mm | + + + + + + + | Specimen | Performing Laboratory | + + + | Blood | [facility], [address] [facility] | | | [place] [address] | + + + + + | Narrative | + + | New reference ranges for MCV, MCHC, PLT, IG% and IG# effective 09/05/2017 | + + MAGNESIUM, PLASMA (10/06/2017 7:25 AM) + +-------+ + | Component | Value | Ref Range | + +-------+ + | MAGNESIUM,PLASMA | 2.0 | 1.6 - 2.6 mg/dL | + +-------+ + + + + | Specimen | Performing Laboratory | + + + | Blood | [facility], [address] [facility] | | | [place] [address] | + + + + + | Narrative | + + | Reference range change effective 12/11/16. | + + CBC ONLY (10/06/2017 7:25 AM) + + + | Specimen | Performing Laboratory | + + + | Blood | | + + + + + | Narrative | + + | The following orders were created for panel order CBC ONLY. | | Procedure | | Abnormality Status | | --------- | | ------ CBC (HEMOGRAM) | | ONLY[[id number]] Abnormal Final | | result Please view results for these tests on the | | individual orders. | + + RENAL FUNCTION SET (NA,K,CL,CO2,BUN,CREAT,GLUC,CA,PHOS,ALB ) (10/06/2017 7:25 AM) + + + + | Component | Value | Ref Range | + + + + | GLUCOSE, PLASMA | 110 (H) | 70 - 99 mg/dL | | (LAB) | | | + + + + | BUN, PLASMA (LAB) | 22 (H) | 6 - 20 mg/dL | + + + + | CREATININE PLASMA | 0.53 (L) | 0.70 - 1.30 mg/dL | | (LAB) | | | + + + + | EGFR - | >60 | >60 mL/min | | GABONESE | | | + + + + | EGFR NON | >60 | >60 mL/min | | -GABONESE | | | + + + + | SODIUM, PLASMA (LAB) | 142 | 136 - 145 mmol/L | + + + + | POTASSIUM, PLASMA | 3.9 | 3.4 - 5.0 mmol/L | | (LAB) | | | + + + + | CHLORIDE, PLASMA | 105 | 97 - 108 mmol/L | | (LAB) | | | + + + + | TOTAL CO2, PLASMA | 30 | 21 - 32 mmol/L | | (LAB) | | | + + + + | CALCIUM, PLASMA | 8.6 | 8.6 - 10.2 mg/dL | | (LAB) | | | + + + + | CALCIUM(ALB | 9.3 | 8.6 - 10.2 mg/dL | | CORRECTED) | | | + + + + | ALBUMIN, PLASMA | 3.1 (L) | 3.5 - 4.7 g/dL | | (LAB) | | | + + + + | PHOSPHORUS, PLASMA | 4.6 | 2.4 - 4.7 mg/dL | | (LAB) | | | + + + + | POTASSIUM CMNT | No Hemo | | + + + + | ANION GAP | 7 | 4 - 11 mmol/L | + + + + | ANION GAP(ALB | 9 | 4 - 11 mmol/L | | CORRECTED) | | | + + + + + + + | Specimen | Performing Laboratory | + + + | Blood | [facility], [address] [facility] | | | [place] [address] | + + + + + | Narrative | + + | GFR is estimated using the MDRD equation recommended by the National Kidney Disease | | Education Program. Estimated GFR Interpretive Information: <60 mL/min/1.73 sq | | m Chronic Kidney Disease <15 mL/min/1.73 sq | | m Kidney Failure Estimated GFR greater that 60 mL/min/1.73 | | sq m is of limited clinical value. The MDRD equation is not valid in the following | | situations: - Patients under 18 years of age - Severe malnutrition or obesity - | | Vegetarian diet - Rapidly changing kidney function - Amputees, paraplegics, or other | | muscle-wasting diseses | + + CAPILLARY BLOOD GLUCOSE (NO CHG), POC (10/06/2017 6:07 AM) + +---------+ + | Component | Value | Ref Range | + +---------+ + | BLOOD GLUCOSE, POC | 127 (H) | 70 - 99 mg/dL | + +---------+ + + + + | Specimen | Performing Laboratory | + + + | | [facility] POINT [facility] CARE TESTS [address] | | | [place] [address] | + + + CAPILLARY BLOOD GLUCOSE (NO CHG), POC (10/06/2017 1:04 AM) + +-------+ + | Component | Value | Ref Range | + +-------+ + | BLOOD GLUCOSE, POC | 91 | 70 - 99 mg/dL | + +-------+ + + + + | Specimen | Performing Laboratory | + + + | | [facility], POINT OF CARE TESTS [address] | | | [place] [address] | + + + CAPILLARY BLOOD GLUCOSE (NO CHG), POC (10/05/2017 6:43 PM) + +---------+ + | Component | Value | Ref Range | + +---------+ + | BLOOD GLUCOSE, POC | 118 (H) | 70 - 99 mg/dL | + +---------+ + + + + | Specimen | Performing Laboratory | + + + | | [facility], POINT OF CARE TESTS [address] | | | [place] [address] | + + + CAPILLARY BLOOD GLUCOSE (NO CHG), POC (10/05/2017 12:24 PM) + +---------+ + | Component | Value | Ref Range | + +---------+ + | BLOOD GLUCOSE, POC | 141 (H) | 70 - 99 mg/dL | + +---------+ + + + + | Specimen | Performing Laboratory | + + + | | [facility], POINT OF CARE TESTS [address] | | | [place] [address] | + + + 12 LEAD ECG (10/05/2017 8:50 AM) + + + + | Component | Value | Ref Range | + + + + | VENTRICULAR RATE | 64 | bpm | + + + + | ATRIAL RATE | 64 | ms | + + + + | P-R INTERVAL | 138 | ms | + + + + | P AXIS | 65 | deg | + + + + | QRS DURATION | 127 | ms | + + + + | QT | 428 | ms | + + + + | QTCB | 441 | ms | + + + + | R AXIS | 93 | deg | + + + + | T AXIS | 34 | deg | + + + + | ECG IMPRESSION | Sinus rhythm | | + + + + | ECG IMPRESSION | Right bundle branch block | | + + + + | ECG IMPRESSION | Borderline ST elevation, lateral leads- | | | | ABNORMAL ECG - | | + + + + | ECG IMPRESSION | Electronically signed by: GABRIELA VANN | | | | 10-05-2017 09:17:53 | | + + + + + + + | Specimen | Performing Laboratory | + + + | | [facility] [address] [place] [address] | | | [place] [address] | + + + CBC (HEMOGRAM) ONLY (10/05/2017 8:38 AM) + + + + | Component | Value | Ref Range | + + + + | WHITE CELL COUNT | 10.68 | 3.50 - 10.80 K/cu mm | + + + + | RED CELL COUNT | 4.36 (L) | 4.50 - 6.00 M/cu mm | + + + + | HEMOGLOBIN | 12.8 (L) | 13.5 - 17.5 g/dL | + + + + | HEMATOCRIT | 40.7 (L) | 41.0 - 53.0 % | + + + + | MCV | 93.3 | 80.0 - 100.0 fL | + + + + | MCHC | 31.4 (L) | 32.0 - 36.0 g/dL | + + + + | RDW SD | 59.8 (H) | 35.1 - 46.3 fL | + + + + | PLATELET COUNT | 205 | 150 - 400 K/cu mm | + + + + | MPV | 9.4 (L) | 9.7 - 12.3 fL | + + + + | NRBC% | 0.0 | 0.0 - 0.3 % | + + + + | NRBC# | 0.00 | 0.00 - 0.02 K/cu mm | + + + + + + + | Specimen | Performing Laboratory | + + + | Blood | [facility] [address] | | | [place] [address] | + + + + + | Narrative | + + | New reference ranges for MCV, MCHC, PLT, IG% and IG# effective 09/05/2017 | + + MAGNESIUM, PLASMA (10/05/2017 8:38 AM) + +-------+ + | Component | Value | Ref Range | + +-------+ + | MAGNESIUM,PLASMA | 1.9 | 1.6 - 2.6 mg/dL | + +-------+ + + + + | Specimen | Performing Laboratory | + + + | Blood | [facility], [address] | | | [place] [address] | + + + + + | Narrative | + + | Reference range change effective 12/11/16. | + + CBC ONLY (10/05/2017 8:38 AM) + + + | Specimen | Performing Laboratory | + + + | Blood | | + + + + + | Narrative | + + | The following orders were created for panel order CBC ONLY. | | Procedure | | Abnormality Status | | --------- | | ------ CBC (HEMOGRAM) | | ONLY[[id number]] Abnormal Final | | result Please view results for these tests on the | | individual orders. | + + RENAL FUNCTION SET (NA,K,CL,CO2,BUN,CREAT,GLUC,CA,PHOS,ALB ) (10/05/2017 8:38 AM) + + + + | Component | Value | Ref Range | + + + + | GLUCOSE, PLASMA | 165 (H) | 70 - 99 mg/dL | | (LAB) | | | + + + + | BUN, PLASMA (LAB) | 18 | 6 - 20 mg/dL | + + + + | CREATININE PLASMA | 0.54 (L) | 0.70 - 1.30 mg/dL | | (LAB) | | | + + + + | EGFR - | >60 | >60 mL/min | | GABONESE | | | + + + + | EGFR NON | >60 | >60 mL/min | | -GABONESE | | | + + + + | SODIUM, PLASMA (LAB) | 140 | 136 - 145 mmol/L | + + + + | POTASSIUM, PLASMA | 3.7 | 3.4 - 5.0 mmol/L | | (LAB) | | | + + + + | CHLORIDE, PLASMA | 103 | 97 - 108 mmol/L | | (LAB) | | | + + + + | TOTAL CO2, PLASMA | 28 | 21 - 32 mmol/L | | (LAB) | | | + + + + | CALCIUM, PLASMA | 8.9 | 8.6 - 10.2 mg/dL | | (LAB) | | | + + + + | CALCIUM(ALB | 9.5 | 8.6 - 10.2 mg/dL | | CORRECTED) | | | + + + + | ALBUMIN, PLASMA | 3.3 (L) | 3.5 - 4.7 g/dL | | (LAB) | | | + + + + | PHOSPHORUS, PLASMA | 3.5 | 2.4 - 4.7 mg/dL | | (LAB) | | | + + + + | POTASSIUM CMNT | No Hemo | | + + + + | ANION GAP | 9 | 4 - 11 mmol/L | + + + + | ANION GAP(ALB | 10 | 4 - 11 mmol/L | | CORRECTED) | | | + + + + + + + | Specimen | Performing Laboratory | + + + | Blood | [facility], [address] [facility] [address] | | | [place] [address] | + + + + + | Narrative | + + | GFR is estimated using the MDRD equation recommended by the National Kidney Disease | | Education Program. Estimated GFR Interpretive Information: <60 mL/min/1.73 sq | | m Chronic Kidney Disease <15 mL/min/1.73 sq | | m Kidney Failure Estimated GFR greater that 60 mL/min/1.73 | | sq m is of limited clinical value. The MDRD equation is not valid in the following | | situations: - Patients under 18 years of age - Severe malnutrition or obesity - | | Vegetarian diet - Rapidly changing kidney function - Amputees, paraplegics, or other | | muscle-wasting diseses | + + CAPILLARY BLOOD GLUCOSE (NO CHG), POC (10/05/2017 6:28 AM) + +---------+ + | Component | Value | Ref Range | + +---------+ + | BLOOD GLUCOSE, POC | 129 (H) | 70 - 99 mg/dL | + +---------+ + + + + | Specimen | Performing Laboratory | + + + | | [facility], [facility] [address] | | | [place] [address] | + + + CAPILLARY BLOOD GLUCOSE (NO CHG), POC (10/04/2017 11:48 PM) + +---------+ + | Component | Value | Ref Range | + +---------+ + | BLOOD GLUCOSE, POC | 131 (H) | 70 - 99 mg/dL | + +---------+ + + + + | Specimen | Performing Laboratory | + + + | | [facility] [place] [facility] [address] | | | [place] [address] | + + + CAPILLARY BLOOD GLUCOSE (NO CHG), POC (10/04/2017 5:47 PM) + +---------+ + | Component | Value | Ref Range | + +---------+ + | BLOOD GLUCOSE, POC | 123 (H) | 70 - 99 mg/dL | + +---------+ + + + + | Specimen | Performing Laboratory | + + + | | [facility] [address] | | | [place] [address] | + + + CAPILLARY BLOOD GLUCOSE (NO CHG), POC (10/04/2017 12:30 PM) + +---------+ + | Component | Value | Ref Range | + +---------+ + | BLOOD GLUCOSE, POC | 137 (H) | 70 - 99 mg/dL | + +---------+ + + + + | Specimen | Performing Laboratory | + + + | | [facility] [address] | | | [place] [address] | + + + CAPILLARY BLOOD GLUCOSE (NO CHG), POC (10/04/2017 5:55 AM) + +---------+ + | Component | Value | Ref Range | + +---------+ + | BLOOD GLUCOSE, POC | 128 (H) | 70 - 99 mg/dL | + +---------+ + + + + | Specimen | Performing Laboratory | + + + | | [facility], POINT OF CARE TESTS [address] | | | [place] [address] | + + + CBC (HEMOGRAM) ONLY (10/04/2017 5:28 AM) + + + + | Component | Value | Ref Range | + + + + | WHITE CELL COUNT | 7.70 | 3.50 - 10.80 K/cu mm | + + + + | RED CELL COUNT | 4.59 | 4.50 - 6.00 M/cu mm | + + + + | HEMOGLOBIN | 13.5 | 13.5 - 17.5 g/dL | + + + + | HEMATOCRIT | 42.4 | 41.0 - 53.0 % | + + + + | MCV | 92.4 | 80.0 - 100.0 fL | + + + + | MCHC | 31.8 (L) | 32.0 - 36.0 g/dL | + + + + | RDW SD | 59.7 (H) | 35.1 - 46.3 fL | + + + + | PLATELET COUNT | 221 | 150 - 400 K/cu mm | + + + + | MPV | 9.7 | 9.7 - 12.3 fL | + + + + | NRBC% | 0.0 | 0.0 - 0.3 % | + + + + | NRBC# | 0.00 | 0.00 - 0.02 K/cu mm | + + + + + + + | Specimen | Performing Laboratory | + + + | Blood | [facility], [address] | | | [place] [address] | + + + + + | Narrative | + + | New reference ranges for MCV, MCHC, PLT, IG% and IG# effective 09/05/2017 | + + MAGNESIUM, PLASMA (10/04/2017 5:28 AM) + +-------+ + | Component | Value | Ref Range | + +-------+ + | MAGNESIUM,PLASMA | 2.0 | 1.6 - 2.6 mg/dL | + +-------+ + + + + | Specimen | Performing Laboratory | + + + | Blood | [facility], [address] | | | [place] [address] | + + + + + | Narrative | + + | Reference range change effective 12/11/16. | + + CBC ONLY (10/04/2017 5:28 AM) + + + | Specimen | Performing Laboratory | + + + | Blood | | + + + + + | Narrative | + + | The following orders were created for panel order CBC ONLY. | | Procedure | | Abnormality Status | | --------- | | ------ CBC (HEMOGRAM) | | ONLY[[id number]] Abnormal Final | | result Please view results for these tests on the | | individual orders. | + + RENAL FUNCTION SET (NA,K,CL,CO2,BUN,CREAT,GLUC,CA,PHOS,ALB ) (10/04/2017 5:28 AM) + + + + | Component | Value | Ref Range | + + + + | GLUCOSE, PLASMA | 124 (H) | 70 - 99 mg/dL | | (LAB) | | | + + + + | BUN, PLASMA (LAB) | 17 | 6 - 20 mg/dL | + + + + | CREATININE PLASMA | 0.56 (L) | 0.70 - 1.30 mg/dL | | (LAB) | | | + + + + | EGFR - | >60 | >60 mL/min | | GABONESE | | | + + + + | EGFR NON | >60 | >60 mL/min | | -GABONESE | | | + + + + | SODIUM, PLASMA (LAB) | 139 | 136 - 145 mmol/L | + + + + | POTASSIUM, PLASMA | 3.7 | 3.4 - 5.0 mmol/L | | (LAB) | | | + + + + | CHLORIDE, PLASMA | 104 | 97 - 108 mmol/L | | (LAB) | | | + + + + | TOTAL CO2, PLASMA | 27 | 21 - 32 mmol/L | | (LAB) | | | + + + + | CALCIUM, PLASMA | 9.0 | 8.6 - 10.2 mg/dL | | (LAB) | | | + + + + | CALCIUM(ALB | 9.5 | 8.6 - 10.2 mg/dL | | CORRECTED) | | | + + + + | ALBUMIN, PLASMA | 3.4 (L) | 3.5 - 4.7 g/dL | | (LAB) | | | + + + + | PHOSPHORUS, PLASMA | 4.1 | 2.4 - 4.7 mg/dL | | (LAB) | | | + + + + | POTASSIUM CMNT | No Hemo | | + + + + | ANION GAP | 8 | 4 - 11 mmol/L | + + + + | ANION GAP(ALB | 9 | 4 - 11 mmol/L | | CORRECTED) | | | + + + + + + + | Specimen | Performing Laboratory | + + + | Blood | [facility] [place] [address] | | | [place] [address] | + + + + + | Narrative | + + | GFR is estimated using the MDRD equation recommended by the National Kidney Disease | | Education Program. Estimated GFR Interpretive Information: <60 mL/min/1.73 sq | | m Chronic Kidney Disease <15 mL/min/1.73 sq | | m Kidney Failure Estimated GFR greater that 60 mL/min/1.73 | | sq m is of limited clinical value. The MDRD equation is not valid in the following | | situations: - Patients under 18 years of age - Severe malnutrition or obesity - | | Vegetarian diet - Rapidly changing kidney function - Amputees, paraplegics, or other | | muscle-wasting diseses | + + CAPILLARY BLOOD GLUCOSE (NO CHG), POC (10/03/2017 11:55 PM) + +---------+ + | Component | Value | Ref Range | + +---------+ + | BLOOD GLUCOSE, POC | 102 (H) | 70 - 99 mg/dL | + +---------+ + + + + | Specimen | Performing Laboratory | + + + | | [facility] [address] | | | [place] [address] | + + + CAPILLARY BLOOD GLUCOSE (NO CHG), POC (10/03/2017 5:54 PM) + +---------+ + | Component | Value | Ref Range | + +---------+ + | BLOOD GLUCOSE, POC | 111 (H) | 70 - 99 mg/dL | + +---------+ + + + + | Specimen | Performing Laboratory | + + + | | [facility], POINT OF CARE TESTS [address] | | | [place] [address] | + + + URINE, MICROSCOPIC EXAM (10/03/2017 5:48 PM) + +---------+ + | Component | Value | Ref Range | + +---------+ + | RED CELLS | 6 (H) | 0 - 3 /hpf | + +---------+ + | WHITE CELLS | 9 (H) | 0 - 5 /hpf | + +---------+ + | BACTERIA | None | None /hpf | + +---------+ + | YEAST (LAB) | None | None /hpf | + +---------+ + | SQUAMOUS EPITHELIAL | None | None /hpf | + +---------+ + | MUCOUS | None | None /hpf | + +---------+ + | TRICHOMONAS | None | None /hpf | + +---------+ + | NON-SQUAMOUS EPITH | None | None /hpf | + +---------+ + | HYALINE CASTS | 0 | 0 - 2 /lpf | + +---------+ + | GRANULAR CASTS | 0 | 0 - 2 /lpf | + +---------+ + | CELLULAR CASTS | 0 | <=0 /lpf | + +---------+ + | TRIPLE P04 CRYSTALS | None | None /hpf | + +---------+ + | CALCIUM OXALATE CECILIA | None | None /hpf | + +---------+ + | URIC ACID CRYSTALS | None | None /hpf | + +---------+ + | AMORPHOUS CRYSTALS | Few (A) | None /hpf | + +---------+ + + + + | Specimen | Performing Laboratory | + + + | Urine - Clean catch | [facility], CORE [address] [facility] | | | [place] [address] | + + + RPR SERUM (10/03/2017 3:36 PM) + + + + | Component | Value | Ref Range | + + + + | RPR SRM QUAL | Non ReactiveComment: Rapid Plasma Reagin | Non Reactive | | | screening test is Non-Reactive. No further | | | | reflex testing is required.Performed by | | | | [address] [place] [address], [place], [place] | | | | [id number] nkl.[employer], Gui | | | | MD Arcadio, Lab. Director | | | |[email or web address].[employer], Gui Ervin MD, Lab. Director | | + + + + + + + | Specimen | Performing Laboratory | + + + | Blood | [facility] [address] [facility] | | | [place] [address] | + + + VITAMIN B-12 (10/03/2017 3:36 PM) + +-------+ + | Component | Value | Ref Range | + +-------+ + | VITAMIN B12 | 759 | 193 - 986 pg/mL | + +-------+ + | COMMENT (HEMO) | 1 | | + +-------+ + | COMMENT (ICTERUS) | 1 | | + +-------+ + | COMMENT (LIPEMIA) | 1 | | + +-------+ + + + + | Specimen | Performing Laboratory | + + + | Blood | [facility], CORE [address] [facility] | | | [facility] [place] [address] | + + + TSH (10/03/2017 3:36 PM) + + + + | Component | Value | Ref Range | + + + + | TSH | 0.33 (L) | 0.46 - 5.56 mIU/L | + + + + + + + | Specimen | Performing Laboratory | + + + | Blood | [facility], CORE [address] [facility] | | | [place] [address] | + + + + + | Narrative | + + | TSH reference ranges are influenced by a variety of environmental influences, age, | | gender and ethnicity. The supplied reference limits are based on published values | | utilizing a similar TSH assay, and should be interpreted with caution. | + + HIV-1,2 AB/HIV-1 P24 AG SCR (10/03/2017 3:36 PM) + + + + | Component | Value | Ref Range | + + + + | HIV-1,2 AB/HIV-1 P24 | Negative | Negative | | AG SCREEN | | | + + + + + + + | Specimen | Performing Laboratory | + + + | Blood | [facility], SPECIAL [facility] [address] [facility] | | | [place] [address] | + + + + + | Narrative | + + | HIV-1 p24 Ag and HIV-1,2 Ab not detected. Test modified from original | | eye surgeon's approved specifications. The performance of the DICE MAKER HIV Combo | | test, with or without confirmation, was not tested in pediatric patients less than 2 | | years of age. NIH guidelines recommend virologic assays (i.e. HIV 1 VIRAL LOAD) that | | directly detect HIV for diagnosis of HIV infection in infants younger than 2 years. | + + CAPILLARY BLOOD GLUCOSE (NO CHG), POC (10/03/2017 1:40 PM) + +---------+ + | Component | Value | Ref Range | + +---------+ + | BLOOD GLUCOSE, POC | 130 (H) | 70 - 99 mg/dL | + +---------+ + + + + | Specimen | Performing Laboratory | + + + | | [facility], POINT OF CARE TESTS [address] [facility] | | | [place] [address] | + + + CAPILLARY BLOOD GLUCOSE (NO CHG), POC (10/03/2017 6:13 AM) + +---------+ + | Component | Value | Ref Range | + +---------+ + | BLOOD GLUCOSE, POC | 109 (H) | 70 - 99 mg/dL | + +---------+ + + + + | Specimen | Performing Laboratory | + + + | | [facility], POINT OF CARE TESTS [address] | | | [place] [address] | + + + CBC (HEMOGRAM) ONLY (10/03/2017 6:03 AM) + + + + | Component | Value | Ref Range | + + + + | WHITE CELL COUNT | 9.40 | 3.50 - 10.80 K/cu mm | + + + + | RED CELL COUNT | 4.46 (L) | 4.50 - 6.00 M/cu mm | + + + + | HEMOGLOBIN | 13.1 (L) | 13.5 - 17.5 g/dL | + + + + | HEMATOCRIT | 41.1 | 41.0 - 53.0 % | + + + + | MCV | 92.2 | 80.0 - 100.0 fL | + + + + | MCHC | 31.9 (L) | 32.0 - 36.0 g/dL | + + + + | RDW SD | 60.2 (H) | 35.1 - 46.3 fL | + + + + | PLATELET COUNT | 214 | 150 - 400 K/cu mm | + + + + | MPV | 9.6 (L) | 9.7 - 12.3 fL | + + + + | NRBC% | 0.0 | 0.0 - 0.3 % | + + + + | NRBC# | 0.00 | 0.00 - 0.02 K/cu mm | + + + + + + + | Specimen | Performing Laboratory | + + + | Blood | [facility], CORE [address] [facility] | | | [place] [address] | + + + + + | Narrative | + + | New reference ranges for MCV, MCHC, PLT, IG% and IG# effective 09/05/2017 | + + MAGNESIUM, PLASMA (10/03/2017 6:03 AM) + +-------+ + | Component | Value | Ref Range | + +-------+ + | MAGNESIUM,PLASMA | 2.0 | 1.6 - 2.6 mg/dL | + +-------+ + + + + | Specimen | Performing Laboratory | + + + | Blood | [facility], CORE [address] [place] [address] [place] | | | [place] [address] | + + + + + | Narrative | + + | Reference range change effective 8/15/17. | + + CBC ONLY (10/03/2017 6:03 AM) + + + | Specimen | Performing Laboratory | + + + | Blood | | + + + + + | Narrative | + + | The following orders were created for panel order CBC ONLY. | | Procedure | | Abnormality Status | | --------- | | ------ CBC (HEMOGRAM) | | ONLY[[id number]] Abnormal Final | | result Please view results for these tests on the | | individual orders. | + + RENAL FUNCTION SET (NA,K,CL,CO2,BUN,CREAT,GLUC,CA,PHOS,ALB ) (10/03/2017 6:03 AM) + + + + | Component | Value | Ref Range | + + + + | GLUCOSE, PLASMA | 115 (H) | 70 - 99 mg/dL | | (LAB) | | | + + + + | BUN, PLASMA (LAB) | 18 | 6 - 20 mg/dL | + + + + | CREATININE PLASMA | 0.56 (L) | 0.70 - 1.30 mg/dL | | (LAB) | | | + + + + | EGFR - | >60 | >60 mL/min | | GABONESE | | | + + + + | EGFR NON | >60 | >60 mL/min | | -GABONESE | | | + + + + | SODIUM, PLASMA (LAB) | 138 | 136 - 145 mmol/L | + + + + | POTASSIUM, PLASMA | 4.0 | 3.4 - 5.0 mmol/L | | (LAB) | | | + + + + | CHLORIDE, PLASMA | 105 | 97 - 108 mmol/L | | (LAB) | | | + + + + | TOTAL CO2, PLASMA | 26 | 21 - 32 mmol/L | | (LAB) | | | + + + + | CALCIUM, PLASMA | 8.9 | 8.6 - 10.2 mg/dL | | (LAB) | | | + + + + | CALCIUM(ALB | 9.5 | 8.6 - 10.2 mg/dL | | CORRECTED) | | | + + + + | ALBUMIN, PLASMA | 3.3 (L) | 3.5 - 4.7 g/dL | | (LAB) | | | + + + + | PHOSPHORUS, PLASMA | 4.5 | 2.4 - 4.7 mg/dL | | (LAB) | | | + + + + | POTASSIUM CMNT | No Hemo | | + + + + | ANION GAP | 7 | 4 - 11 mmol/L | + + + + | ANION GAP(ALB | 8 | 4 - 11 mmol/L | | CORRECTED) | | | + + + + + + + | Specimen | Performing Laboratory | + + + | Blood | [facility], CORE [address] [facility] | | | [place] [address] | + + + + + | Narrative | + + | GFR is estimated using the MDRD equation recommended by the National Kidney Disease | | Education Program. Estimated GFR Interpretive Information: <60 mL/min/1.73 sq | | m Chronic Kidney Disease <15 mL/min/1.73 sq | | m Kidney Failure Estimated GFR greater that 60 mL/min/1.73 | | sq m is of limited clinical value. The MDRD equation is not valid in the following | | situations: - Patients under 18 years of age - Severe malnutrition or obesity - | | Vegetarian diet - Rapidly changing kidney function - Amputees, paraplegics, or other | | muscle-wasting diseses | + + CAPILLARY BLOOD GLUCOSE (NO CHG), POC (10/03/2017 12:05 AM) + +-------+ + | Component | Value | Ref Range | + +-------+ + | BLOOD GLUCOSE, POC | 96 | 70 - 99 mg/dL | + +-------+ + + + + | Specimen | Performing Laboratory | + + + | | [facility] [address] | | | [place] [address] | + + + X-RAY SPINE CERVICAL 2 VIEWS (10/02/2017 10:32 PM) + + + | Specimen | Performing Laboratory | + + + | | [facility] VOICE RECOGNITION 2 | + + + + + | Narrative | + + | EXAM: SPINE CERVICAL 2 VIEWS HISTORY: eval previous cervical fractures. Please | | perform AP & lateral views and include to T3 if able. COMPARISON: 09/14/2017 | | FINDINGS: A back brace and nasogastric tube obscure osseous detail the neck. The | | known mildly displaced C6 spinous process fracture is partially obscured, but appears | | unchanged. The bilateral C7 laminar fractures and T4 fracture are not well visualized | | radiographically due to overlying bone and soft tissue. There is 1-2 mm C4-C5 | | anterolisthesis. Multilevel degenerative findings of the mid to lower cervical spine | | are unchanged. Soft tissue swelling of posterior neck is unchanged. IMPRESSION: | | Minimally displaced C6 spinous process fracture appears similar. Known fractures of | | C7 and T4 are not well seen. Mid to lower cervical degenerative disc disease and | | facet arthrosis are unchanged. I have personally reviewed the images and, if | | necessary, edited the report. I agree with the report as now presented. Final | | signature: Julian Perkins MD 10/03/2017 8:38 AM Preliminary: Master Watson, | | Dictation initiated: Master Watson MD 10/03/2017 8:28 AM | + + + + | Procedure Note [...] Perkins MD 10/03/2017 8:38 AM Preliminary: Master Snyder | | MD Walter Dictation initiated: Master [...] MD 10/03/2017 8:28 AM | + + CAPILLARY BLOOD GLUCOSE (NO CHG), POC (10/02/2017 6:54 PM) + +-------+ + | Component | Value | Ref Range | + +-------+ + | BLOOD GLUCOSE, POC | 95 | 70 - 99 mg/dL | + +-------+ + + + + | Specimen | Performing Laboratory | + + + | | [facility] [address] | | | [place] [address] | + + + 12 LEAD ECG (10/02/2017 4:33 PM) + + + + | Component | Value | Ref Range | + + + + | VENTRICULAR RATE | 82 | bpm | + + + + | ATRIAL RATE | 227 | ms | + + + + | P-R INTERVAL | 127 | ms | + + + + | P AXIS | 50 | deg | + + + + | QRS DURATION | 128 | ms | + + + + | QT | 413 | ms | + + + + | QTCB | 484 | ms | + + + + | R AXIS | 95 | deg | + + + + | T AXIS | 54 | deg | + + + + | ECG IMPRESSION | Probable Sinus rhythm | | + + + + | ECG IMPRESSION | Right bundle branch block | | + + + + | ECG IMPRESSION | ARTIFACT- ABNORMAL ECG - | | + + + + | ECG IMPRESSION | Electronically signed by: GABRIELA VANN | | | | 10-02-2017 20:43:54 | | + + + + + + + | Specimen | Performing Laboratory | + + + | | [facility] [address] [place] [address] | | | [place] [address] | + + + PROCEDURE NOTE (10/02/2017 2:12 PM) + + | Narrative | + + | Winnie Hernandez RN 10/02/2017 2:15 PM PICC tip malpositioned in the Azygous | | vessel, attempted to power flush catheter back into a central location. Chest film | | now shows PICC tip in a contra-lateral position (tip in the Right IJ) Catheter not | | central. Called RN and notified her line not central and either needs to be pulled | | back into a midline position or replaced if they need central access. RN will | | discuss with primary medical team and have them come up with a plan. Please page | | the vascular access team with any future needs regarding this issue. | + + X-RAY PORTABLE CHEST 1 VIEW (10/02/2017 1:58 PM) + + + | Specimen | Performing Laboratory | + + + | | [facility] VOICE RECOGNITION 2 | + + + + + | Narrative | + + | EXAM: UT CHEST 1 VIEW HISTORY: Evaluate PICC placement COMPARISON: Earlier | | today FINDINGS: Left upper extremity PICC extends cephalad into the right | | brachiocephalic vein with tip projecting at the medial right clavicle. There is | | minimal bibasilar atelectasis, the lungs are otherwise clear. There is no pulmonary | | edema. Cardiomediastinal silhouette within normal limits. No definite pleural effusion. | | No pneumothorax. IMPRESSION: Left upper extremity PICC extends into the right | | brachiocephalic vein directed cephalad with tip at the level of the medial right | | clavicle. Minimal bibasilar atelectasis, otherwise clear lungs. I have | | personally reviewed the images and, if necessary, edited the report. I agree with the | | report as now presented. Final signature: Marcelo Morley MD 10/02/2017 2:06 PM | | Preliminary: Marcelo Morley MD Dictation initiated: Marcelo Morley MD | | 10/02/2017 2:04 PM | + + + + | Procedure Note | + + | 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, [employer] In Interface - 10/02/2017 2:07 PM PDT EXAM: UT CHEST 1 | | VIEW HISTORY: Evaluate [...] MD 10/02/2017 2:04 PM | + + CAPILLARY BLOOD GLUCOSE (NO CHG), POC (10/02/2017 12:30 PM) + +---------+ + | Component | Value | Ref Range | + +---------+ + | BLOOD GLUCOSE, POC | 102 (H) | 70 - 99 mg/dL | + +---------+ + + + + | Specimen | Performing Laboratory | + + + | | [facility], POINT [facility]ARE TESTS [address] | | | [place] [address] | + + + X-RAY PORTABLE CHEST 1 VIEW (10/02/2017 8:56 AM) + + + | Specimen | Performing Laboratory | + + + | | [facility] VOICE RECOGNITION 2 | + + + + + | Narrative | + + | EXAM: UT CHEST 1 VIEW HISTORY: new leukocytosis, eval for aspiration pneumonia | | COMPARISON: 09/16/2017, limited abdomen yesterday FINDINGS: Left upper | | extremity PICC projects into the azygos arch. Feeding tube tip in the stomach. The | | cardiomediastinal contour is normal. The lungs are clear. There is no pleural effusion | | or pneumothorax. There is no pulmonary edema. The bones are intact. IMPRESSION: | | Clear lungs. Left upper extremity PICC tip projecting in the azygous arch. These | | results were discussed with Sherine Sarmiento on 10/02/2017 10:20 AM by Marcelo | | MD Milli. I have personally reviewed the images and, if necessary, edited the | | report. I agree with the report as now presented. Final signature: Marcelo Morley | | 10/02/2017 10:26 AM Preliminary: Marcelo Morley MD Dictation initiated: | | Marcelo Morley MD 10/02/2017 10:20 AM | + + + + | Procedure Note | + + | 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, [employer] Res In Interface - 10/02/2017 10:27 AM PDT EXAM: UT CHEST 1 | | VIEW HISTORY: new [...] MD 10/02/2017 10:20 AM | + + CAPILLARY BLOOD GLUCOSE (NO CHG), POC (10/02/2017 6:04 AM) + +---------+ + | Component | Value | Ref Range | + +---------+ + | BLOOD GLUCOSE, POC | 158 (H) | 70 - 99 mg/dL | + +---------+ + + + + | Specimen | Performing Laboratory | + + + | | [facility], POINT [facility]ARE TESTS [address] | | | [place] [address] | + + + CBC (HEMOGRAM) ONLY (10/02/2017 5:12 AM) + + + + | Component | Value | Ref Range | + + + + | WHITE CELL COUNT | 12.64 (H) | 3.50 - 10.80 K/cu mm | + + + + | RED CELL COUNT | 4.51 | 4.50 - 6.00 M/cu mm | + + + + | HEMOGLOBIN | 13.5 | 13.5 - 17.5 g/dL | + + + + | HEMATOCRIT | 40.9 (L) | 41.0 - 53.0 % | + + + + | MCV | 90.7 | 80.0 - 100.0 fL | + + + + | MCHC | 33.0 | 32.0 - 36.0 g/dL | + + + + | RDW SD | 57.4 (H) | 35.1 - 46.3 fL | + + + + | PLATELET COUNT | 210 | 150 - 400 K/cu mm | + + + + | MPV | 9.1 (L) | 9.7 - 12.3 fL | + + + + | NRBC% | 0.0 | 0.0 - 0.3 % | + + + + | NRBC# | 0.00 | 0.00 - 0.02 K/cu mm | + + + + + + + | Specimen | Performing Laboratory | + + + | Blood | [facility], CORE [address] [place] [address] | | | [place] [address] | + + + + + | Narrative | + + | New reference ranges for MCV, MCHC, PLT, IG% and IG# effective 09/05/2017 | + + MAGNESIUM, PLASMA (10/02/2017 5:12 AM) + +-------+ + | Component | Value | Ref Range | + +-------+ + | MAGNESIUM,PLASMA | 2.1 | 1.6 - 2.6 mg/dL | + +-------+ + + + + | Specimen | Performing Laboratory | + + + | Blood | [facility], CORE [address] [facility] | | | [place] [address] | + + + + + | Narrative | + + | Reference range change effective 12/11/16. | + + CBC ONLY (10/02/2017 5:12 AM) + + + | Specimen | Performing Laboratory | + + + | Blood | | + + + + + | Narrative | + + | The following orders were created for panel order CBC ONLY. | | Procedure | | Abnormality Status | | --------- | | ------ CBC (HEMOGRAM) | | ONLY[[id number]] Abnormal Final | | result Please view results for these tests on the | | individual orders. | + + RENAL FUNCTION SET (NA,K,CL,CO2,BUN,CREAT,GLUC,CA,PHOS,ALB ) (10/02/2017 5:12 AM) + + + + | Component | Value | Ref Range | + + + + | GLUCOSE, PLASMA | 99 | 70 - 99 mg/dL | | (LAB) | | | + + + + | BUN, PLASMA (LAB) | 15 | 6 - 20 mg/dL | + + + + | CREATININE PLASMA | 0.51 (L) | 0.70 - 1.30 mg/dL | | (LAB) | | | + + + + | EGFR - | >60 | >60 mL/min | | GABONESE | | | + + + + | EGFR NON | >60 | >60 mL/min | | -GABONESE | | | + + + + | SODIUM, PLASMA (LAB) | 140 | 136 - 145 mmol/L | + + + + | POTASSIUM, PLASMA | 4.1 | 3.4 - 5.0 mmol/L | | (LAB) | | | + + + + | CHLORIDE, PLASMA | 104 | 97 - 108 mmol/L | | (LAB) | | | + + + + | TOTAL CO2, PLASMA | 25 | 21 - 32 mmol/L | | (LAB) | | | + + + + | CALCIUM, PLASMA | 9.1 | 8.6 - 10.2 mg/dL | | (LAB) | | | + + + + | CALCIUM(ALB | 9.6 | 8.6 - 10.2 mg/dL | | CORRECTED) | | | + + + + | ALBUMIN, PLASMA | 3.4 (L) | 3.5 - 4.7 g/dL | | (LAB) | | | + + + + | PHOSPHORUS, PLASMA | 4.2 | 2.4 - 4.7 mg/dL | | (LAB) | | | + + + + | POTASSIUM CMNT | No Hemo | | + + + + | ANION GAP | 11 | 4 - 11 mmol/L | + + + + | ANION GAP(ALB | 12 (H) | 4 - 11 mmol/L | | CORRECTED) | | | + + + + + + + | Specimen | Performing Laboratory | + + + | Blood | [facility], CORE [address] [facility] | | | [place] [address] | + + + + + | Narrative | + + | GFR is estimated using the MDRD equation recommended by the National Kidney Disease | | Education Program. Estimated GFR Interpretive Information: <60 mL/min/1.73 sq | | m Chronic Kidney Disease <15 mL/min/1.73 sq | | m Kidney Failure Estimated GFR greater that 60 mL/min/1.73 | | sq m is of limited clinical value. The MDRD equation is not valid in the following | | situations: - Patients under 18 years of age - Severe malnutrition or obesity - | | Vegetarian diet - Rapidly changing kidney function - Amputees, paraplegics, or other | | muscle-wasting diseses | + + CAPILLARY BLOOD GLUCOSE (NO CHG), POC (10/02/2017 12:21 AM) + +---------+ + | Component | Value | Ref Range | + +---------+ + | BLOOD GLUCOSE, POC | 133 (H) | 70 - 99 mg/dL | + +---------+ + + + + | Specimen | Performing Laboratory | + + + | | [facility], [facility]INT OF [facility]ARE TESTS [address] | | | [place] [address] | + + + CAPILLARY BLOOD GLUCOSE (NO CHG), POC (10/01/2017 7:31 PM) + +---------+ + | Component | Value | Ref Range | + +---------+ + | BLOOD GLUCOSE, POC | 104 (H) | 70 - 99 mg/dL | + +---------+ + + + + | Specimen | Performing Laboratory | + + + | | [facility] [address] | | | [place] [address] | + + + X-RAY ABD LTD FEEDING TUBE EVAL (10/01/2017 1:23 PM) + + + | Specimen | Performing Laboratory | + + + | | [facility] VOICE RECOGNITION 2 | + + + + + | Narrative | + + | EXAM: ABD LTD FEEDING TUBE EVAL INDICATION: DHT placement TECHNIQUE: | | Semi-upright portable view of the upper abdomen. Comparison: None available.. | | FINDINGS/IMPRESSION: Dobbhoff tube extends into the mid stomach, looped upon | | itself, tip in the fundus. No disproportionate dilation of small or large bowel to | | suggest obstruction. No free air or portal venous gas identified. In addition, the | | left-sided PICC line appears to curve upwards and terminate in the distal right | | brachiocephalic vein rather than extending inferiorly into the SVC. I have | | personally reviewed the images and, if necessary, edited the report. I agree with the | | report as now presented. Final signature: Edelmira Parsons MD 10/01/2017 2:13 PM | | Preliminary: Edelmira Parsons MD Dictation initiated: Edelmira Parsons, | | 10/01/2017 2:08 PM | + + + + | Procedure Note [...] MD 10/01/2017 2:08 PM | + + CAPILLARY BLOOD GLUCOSE (NO CHG), POC (10/01/2017 12:14 PM) + +---------+ + | Component | Value | Ref Range | + +---------+ + | BLOOD GLUCOSE, POC | 107 (H) | 70 - 99 mg/dL | + +---------+ + + + + | Specimen | Performing Laboratory | + + + | | [facility]ARE TESTS [address] | | | [place] [address] | + + + VASC LAB VENOUS DUPLEX LOWER EXTREMITY BILAT COMP (10/01/2017 11:14 AM) + + + | Specimen | Performing Laboratory | + + + | | [facility] VAS US | + + + + + | Narrative | + + | Bilateral: The duplex scanner was used to examine the deep and superficial veins of | | the right and left lower extremities. The veins are patent bilaterally with normal | | flow and responses to augmentation and compression maneuvers and no thrombus is noted. | | Conclusions: A normal venous examination of the bilateral lower extremities. No | | venous thrombosis was detected. I have personally reviewed the images and, | | if necessary, edited the report. I agree with the report as now presented. | + + + + | Procedure Note | + + | 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, [employer] In Interface - 10/01/2017 11:34 AM PDT [...] report as now presented. | + + CAPILLARY BLOOD GLUCOSE (NO CHG), POC (10/01/2017 5:50 AM) + +---------+ + | Component | Value | Ref Range | + +---------+ + | BLOOD GLUCOSE, POC | 130 (H) | 70 - 99 mg/dL | + +---------+ + + + + | Specimen | Performing Laboratory | + + + | | [facility], POINT OF CARE TESTS [address] | | | [place] [address] | + + + CBC (HEMOGRAM) ONLY (10/01/2017 5:25 AM) + + + + | Component | Value | Ref Range | + + + + | WHITE CELL COUNT | 9.02 | 3.50 - 10.80 K/cu mm | + + + + | RED CELL COUNT | 4.24 (L) | 4.50 - 6.00 M/cu mm | + + + + | HEMOGLOBIN | 12.5 (L) | 13.5 - 17.5 g/dL | + + + + | HEMATOCRIT | 38.4 (L) | 41.0 - 53.0 % | + + + + | MCV | 90.6 | 80.0 - 100.0 fL | + + + + | MCHC | 32.6 | 32.0 - 36.0 g/dL | + + + + | RDW SD | 58.0 (H) | 35.1 - 46.3 fL | + + + + | PLATELET COUNT | 189 | 150 - 400 K/cu mm | + + + + | MPV | 9.3 (L) | 9.7 - 12.3 fL | + + + + | NRBC% | 0.0 | 0.0 - 0.3 % | + + + + | NRBC# | 0.00 | 0.00 - 0.02 K/cu mm | + + + + + + + | Specimen | Performing Laboratory | + + + | Blood | [facility], [address] | | | [place] [address] | + + + + + | Narrative | + + | New reference ranges for MCV, MCHC, PLT, IG% and IG# effective 09/05/2017 | + + MAGNESIUM, PLASMA (10/01/2017 5:25 AM) + +-------+ + | Component | Value | Ref Range | + +-------+ + | MAGNESIUM,PLASMA | 2.0 | 1.6 - 2.6 mg/dL | + +-------+ + + + + | Specimen | Performing Laboratory | + + + | Blood | [facility], [address] | | | [place] [address] | + + + + + | Narrative | + + | Reference range change effective 12/11/16. | + + CBC ONLY (10/01/2017 5:25 AM) + + + | Specimen | Performing Laboratory | + + + | Blood | | + + + + + | Narrative | + + | The following orders were created for panel order CBC ONLY. | | Procedure | | Abnormality Status | | --------- | | ------ CBC (HEMOGRAM) | | ONLY[[id number]] Abnormal Final | | result Please view results for these tests on the | | individual orders. | + + RENAL FUNCTION SET (NA,K,CL,CO2,BUN,CREAT,GLUC,CA,PHOS,ALB ) (10/01/2017 5:25 AM) + + + + | Component | Value | Ref Range | + + + + | GLUCOSE, PLASMA | 129 (H) | 70 - 99 mg/dL | | (LAB) | | | + + + + | BUN, PLASMA (LAB) | 16 | 6 - 20 mg/dL | + + + + | CREATININE PLASMA | 0.46 (L) | 0.70 - 1.30 mg/dL | | (LAB) | | | + + + + | EGFR - | >60 | >60 mL/min | | GABONESE | | | + + + + | EGFR NON | >60 | >60 mL/min | | -GABONESE | | | + + + + | SODIUM, PLASMA (LAB) | 139 | 136 - 145 mmol/L | + + + + | POTASSIUM, PLASMA | 3.8 | 3.4 - 5.0 mmol/L | | (LAB) | | | + + + + | CHLORIDE, PLASMA | 105 | 97 - 108 mmol/L | | (LAB) | | | + + + + | TOTAL CO2, PLASMA | 27 | 21 - 32 mmol/L | | (LAB) | | | + + + + | CALCIUM, PLASMA | 8.7 | 8.6 - 10.2 mg/dL | | (LAB) | | | + + + + | CALCIUM(ALB | 9.4 | 8.6 - 10.2 mg/dL | | CORRECTED) | | | + + + + | ALBUMIN, PLASMA | 3.1 (L) | 3.5 - 4.7 g/dL | | (LAB) | | | + + + + | PHOSPHORUS, PLASMA | 3.8 | 2.4 - 4.7 mg/dL | | (LAB) | | | + + + + | POTASSIUM CMNT | No Hemo | | + + + + | ANION GAP | 7 | 4 - 11 mmol/L | + + + + | ANION GAP(ALB | 9 | 4 - 11 mmol/L | | CORRECTED) | | | + + + + + + + | Specimen | Performing Laboratory | + + + | Blood | [facility], CORE [address] [address] | | | [place], [place] [address] | + + + + + | Narrative | + + | GFR is estimated using the MDRD equation recommended by the National Kidney Disease | | Education Program. Estimated GFR Interpretive Information: <60 mL/min/1.73 sq | | m Chronic Kidney Disease <15 mL/min/1.73 sq | | m Kidney Failure Estimated GFR greater that 60 mL/min/1.73 | | sq m is of limited clinical value. The MDRD equation is not valid in the following | | situations: - Patients under 18 years of age - Severe malnutrition or obesity - | | Vegetarian diet - Rapidly changing kidney function - Amputees, paraplegics, or other | | muscle-wasting diseses | + + CAPILLARY BLOOD GLUCOSE (NO CHG), POC (09/30/2017 11:21 PM) + +---------+ + | Component | Value | Ref Range | + +---------+ + | BLOOD GLUCOSE, POC | 144 (H) | 70 - 99 mg/dL | + +---------+ + + + + | Specimen | Performing Laboratory | + + + | | [facility], POINT OF CARE TESTS [address] | | | [facility] [address] | + + + CAPILLARY BLOOD GLUCOSE (NO CHG), POC (09/30/2017 6:01 PM) + +---------+ + | Component | Value | Ref Range | + +---------+ + | BLOOD GLUCOSE, POC | 102 (H) | 70 - 99 mg/dL | + +---------+ + + + + | Specimen | Performing Laboratory | + + + | | [facility], POINT OF CARE TEST[facility] [address] | | | [facility] [address] | + + + 12 LEAD ECG (09/30/2017 3:17 PM) + + + + | Component | Value | Ref Range | + + + + | VENTRICULAR RATE | 65 | bpm | + + + + | ATRIAL RATE | 65 | ms | + + + + | P-R INTERVAL | 128 | ms | + + + + | P AXIS | 62 | deg | + + + + | QRS DURATION | 137 | ms | + + + + | QT | 462 | ms | + + + + | QTCB | 481 | ms | + + + + | R AXIS | 86 | deg | + + + + | T AXIS | 28 | deg | + + + + | ECG IMPRESSION | Sinus rhythm | | + + + + | ECG IMPRESSION | Right bundle branch block | | + + + + | ECG IMPRESSION | ST elevation, consider lateral injury- | | | | ABNORMAL ECG - | | + + + + | ECG IMPRESSION | Electronically signed by: AJAY DE LOS SANTOS | | | | 10-01-2017 19:45:35 | | + + + + + + + | Specimen | Performing Laboratory | + + + | | [facility] [address] [facility] | | | [place] [address] | + + + CT HEAD WO CONTRAST (09/30/2017 1:02 PM) + + + | Specimen | Performing Laboratory | + + + | | [facility] VOICE RECOGNITION 2 | + + + + + | Narrative | + + | EXAM: CT HEAD WITHOUT CONTRAST HISTORY: altered mental status - known head | | injury COMPARISON: MRI brain 09/25/2017 TECHNIQUE: CT of the head without | | intravenous contrast. FINDINGS: BRAIN: Postprocedural changes from right | | lima-cranioplasty subjacent extra-axial fluid collection overlying the right | | frontoparietal lobes measuring 11 mm in thickness, unchanged from 09/25/2017 MRI. Right | | inferior temporal encephalomalacia is again seen. Trace 2 mm leftward midline shift is | | stable. The ventricles are stable in size and morphology without hydrocephalus. No | | evidence of acute ischemia or hemorrhage. SOFT TISSUES: Postsurgical changes from | | right lima-cranioplasty SKULL AND SKULL BASE: Postsurgical changes from right | | lima-cranioplasty Mastoids and middle ears are unremarkable. FACE/ORBITS: Chronic nasal | | bone deformity. PARANASAL SINUSES: Visualized portions are unremarkable. | | IMPRESSION: Stable postprocedural changes from right lima-cranioplasty and subjacent | | extra-axial fluid collection resulting in unchanged 2 mm leftward midline shift. I | | have personally reviewed the images and, if necessary, edited the report. I agree with | | the report as now presented. Final signature: Ceci Phillips MD 09/30/2017 | | 1:27 PM Preliminary: Ajay Stout MD Dictation initiated: Ajay Castillo | | MD Girish 09/30/2017 1:19 PM | + + + + | Procedure Note | + + | 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, [employer] In Interface - 09/30/2017 1:28 PM [...] MD 09/30/2017 1:19 PM | + + CAPILLARY BLOOD GLUCOSE (NO CHG), POC (09/30/2017 12:29 PM) + +---------+ + | Component | Value | Ref Range | + +---------+ + | BLOOD GLUCOSE, POC | 105 (H) | 70 - 99 mg/dL | + +---------+ + + + + | Specimen | Performing Laboratory | + + + | | [facility], [facility]ARE [facility] [address] | | | [place] [address] | + + + CAPILLARY BLOOD GLUCOSE (NO CHG), POC (09/30/2017 6:26 AM) + +---------+ + | Component | Value | Ref Range | + +---------+ + | BLOOD GLUCOSE, POC | 151 (H) | 70 - 99 mg/dL | + +---------+ + + + + | Specimen | Performing Laboratory | + + + | | [facility], POINT OF CARE TESTS [address] | | | [place] [address] | + + + CBC (HEMOGRAM) ONLY (09/30/2017 4:43 AM) + + + + | Component | Value | Ref Range | + + + + | WHITE CELL COUNT | 9.17 | 3.50 - 10.80 K/cu mm | + + + + | RED CELL COUNT | 4.11 (L) | 4.50 - 6.00 M/cu mm | + + + + | HEMOGLOBIN | 12.0 (L) | 13.5 - 17.5 g/dL | + + + + | HEMATOCRIT | 37.8 (L) | 41.0 - 53.0 % | + + + + | MCV | 92.0 | 80.0 - 100.0 fL | + + + + | MCHC | 31.7 (L) | 32.0 - 36.0 g/dL | + + + + | RDW SD | 59.0 (H) | 35.1 - 46.3 fL | + + + + | PLATELET COUNT | 199 | 150 - 400 K/cu mm | + + + + | MPV | 9.1 (L) | 9.7 - 12.3 fL | + + + + | NRBC% | 0.0 | 0.0 - 0.3 % | + + + + | NRBC# | 0.00 | 0.00 - 0.02 K/cu mm | + + + + + + + | Specimen | Performing Laboratory | + + + | Blood | [facility], [facility] [address] | | | [place] [address] | + + + + + | Narrative | + + | New reference ranges for MCV, MCHC, PLT, IG% and IG# effective 09/05/2017 | + + MAGNESIUM, PLASMA (09/30/2017 4:43 AM) + +-------+ + | Component | Value | Ref Range | + +-------+ + | MAGNESIUM,PLASMA | 2.0 | 1.6 - 2.6 mg/dL | + +-------+ + + + + | Specimen | Performing Laboratory | + + + | Blood | [facility], CORE [address] | | | [place] [address] | + + + + + | Narrative | + + | Reference range change effective 12/11/16. | + + CBC ONLY (09/30/2017 4:43 AM) + + + | Specimen | Performing Laboratory | + + + | Blood | | + + + + + | Narrative | + + | The following orders were created for panel order CBC ONLY. | | Procedure | | Abnormality Status | | --------- | | ------ CBC (HEMOGRAM) | | ONLY[[id number]] Abnormal Final | | result Please view results for these tests on the | | individual orders. | + + RENAL FUNCTION SET (NA,K,CL,CO2,BUN,CREAT,GLUC,CA,PHOS,ALB ) (09/30/2017 4:43 AM) + + + + | Component | Value | Ref Range | + + + + | GLUCOSE, PLASMA | 124 (H) | 70 - 99 mg/dL | | (LAB) | | | + + + + | BUN, PLASMA (LAB) | 17 | 6 - 20 mg/dL | + + + + | CREATININE PLASMA | 0.48 (L) | 0.70 - 1.30 mg/dL | | (LAB) | | | + + + + | EGFR - | >60 | >60 mL/min | | GABONESE | | | + + + + | EGFR NON | >60 | >60 mL/min | | -GABONESE | | | + + + + | SODIUM, PLASMA (LAB) | 140 | 136 - 145 mmol/L | + + + + | POTASSIUM, PLASMA | 3.5 | 3.4 - 5.0 mmol/L | | (LAB) | | | + + + + | CHLORIDE, PLASMA | 105 | 97 - 108 mmol/L | | (LAB) | | | + + + + | TOTAL CO2, PLASMA | 27 | 21 - 32 mmol/L | | (LAB) | | | + + + + | CALCIUM, PLASMA | 8.5 (L) | 8.6 - 10.2 mg/dL | | (LAB) | | | + + + + | CALCIUM(ALB | 9.3 | 8.6 - 10.2 mg/dL | | CORRECTED) | | | + + + + | ALBUMIN, PLASMA | 3.0 (L) | 3.5 - 4.7 g/dL | | (LAB) | | | + + + + | PHOSPHORUS, PLASMA | 4.0 | 2.4 - 4.7 mg/dL | | (LAB) | | | + + + + | POTASSIUM CMNT | No Hemo | | + + + + | ANION GAP | 8 | 4 - 11 mmol/L | + + + + | ANION GAP(ALB | 10 | 4 - 11 mmol/L | | CORRECTED) | | | + + + + + + + | Specimen | Performing Laboratory | + + + | Blood | [facility], [facility] [address] | | | [place] [address] | + + + + + | Narrative | + + | GFR is estimated using the MDRD equation recommended by the National Kidney Disease | | Education Program. Estimated GFR Interpretive Information: <60 mL/min/1.73 sq | | m Chronic Kidney Disease <15 mL/min/1.73 sq | | m Kidney Failure Estimated GFR greater that 60 mL/min/1.73 | | sq m is of limited clinical value. The MDRD equation is not valid in the following | | situations: - Patients under 18 years of age - Severe malnutrition or obesity - | | Vegetarian diet - Rapidly changing kidney function - Amputees, paraplegics, or other | | muscle-wasting diseses | + + CAPILLARY BLOOD GLUCOSE (NO CHG), POC (09/29/2017 10:18 PM) + +---------+ + | Component | Value | Ref Range | + +---------+ + | BLOOD GLUCOSE, POC | 125 (H) | 70 - 99 mg/dL | + +---------+ + + + + | Specimen | Performing Laboratory | + + + | | [facility], POINT OF CARE TESTS [address] | | | [place] [address] | + + + CAPILLARY BLOOD GLUCOSE (NO CHG), POC (09/29/2017 5:53 PM) + +---------+ + | Component | Value | Ref Range | + +---------+ + | BLOOD GLUCOSE, POC | 124 (H) | 70 - 99 mg/dL | + +---------+ + + + + | Specimen | Performing Laboratory | + + + | | [facility] - [facility], POINT OF CARE TESTS [address] | | | [place] [address] | + + + CAPILLARY BLOOD GLUCOSE (NO CHG), POC (09/29/2017 12:46 PM) + +---------+ + | Component | Value | Ref Range | + +---------+ + | BLOOD GLUCOSE, POC | 117 (H) | 70 - 99 mg/dL | + +---------+ + + + + | Specimen | Performing Laboratory | + + + | | [facility] POINT OF CARE TESTS [address] | | | [place] [address] | + + + 12 LEAD ECG (09/29/2017 11:17 AM) + + + + | Component | Value | Ref Range | + + + + | VENTRICULAR RATE | 63 | bpm | + + + + | ATRIAL RATE | 63 | ms | + + + + | P-R INTERVAL | 136 | ms | + + + + | P AXIS | 57 | deg | + + + + | QRS DURATION | 133 | ms | + + + + | QT | 432 | ms | + + + + | QTCB | 442 | ms | + + + + | R AXIS | 86 | deg | + + + + | T AXIS | 32 | deg | + + + + | ECG IMPRESSION | Sinus rhythm | | + + + + | ECG IMPRESSION | Right bundle branch block | | + + + + | ECG IMPRESSION | ST elevation, consider anterolateral | | | | injury- ABNORMAL ECG - | | + + + + | ECG IMPRESSION | Electronically signed by: JULIO VIZCAINO | | | | 09-30-2017 08:36:54 | | + + + + + + + | Specimen | Performing Laboratory | + + + | | [facility] [address] [place] [address] | | | [place] [address] | + + + CAPILLARY BLOOD GLUCOSE (NO CHG), POC (09/29/2017 6:19 AM) + +---------+ + | Component | Value | Ref Range | + +---------+ + | BLOOD GLUCOSE, POC | 145 (H) | 70 - 99 mg/dL | + +---------+ + + + + | Specimen | Performing Laboratory | + + + | | [facility] CARE TESTS [address] | | | [place] [address] | + + + MAGNESIUM, PLASMA (09/29/2017 4:30 AM) + +-------+ + | Component | Value | Ref Range | + +-------+ + | MAGNESIUM,PLASMA | 2.1 | 1.6 - 2.6 mg/dL | + +-------+ + + + + | Specimen | Performing Laboratory | + + + | Blood | [facility], [address] [address] | | | [place] [address] | + + + + + | Narrative | + + | Reference range change effective 8/15/17. | + + RENAL FUNCTION SET (NA,K,CL,CO2,BUN,CREAT,GLUC,CA,PHOS,ALB ) (09/29/2017 4:30 AM) + + + + | Component | Value | Ref Range | + + + + | GLUCOSE, PLASMA | 136 (H) | 70 - 99 mg/dL | | (LAB) | | | + + + + | BUN, PLASMA (LAB) | 15 | 6 - 20 mg/dL | + + + + | CREATININE PLASMA | 0.47 (L) | 0.70 - 1.30 mg/dL | | (LAB) | | | + + + + | EGFR - | >60 | >60 mL/min | | GABONESE | | | + + + + | EGFR NON | >60 | >60 mL/min | | -GABONESE | | | + + + + | SODIUM, PLASMA (LAB) | 139 | 136 - 145 mmol/L | + + + + | POTASSIUM, PLASMA | 3.8 | 3.4 - 5.0 mmol/L | | (LAB) | | | + + + + | CHLORIDE, PLASMA | 104 | 97 - 108 mmol/L | | (LAB) | | | + + + + | TOTAL CO2, PLASMA | 26 | 21 - 32 mmol/L | | (LAB) | | | + + + + | CALCIUM, PLASMA | 8.6 | 8.6 - 10.2 mg/dL | | (LAB) | | | + + + + | CALCIUM(ALB | 9.4 | 8.6 - 10.2 mg/dL | | CORRECTED) | | | + + + + | ALBUMIN, PLASMA | 3.0 (L) | 3.5 - 4.7 g/dL | | (LAB) | | | + + + + | PHOSPHORUS, PLASMA | 4.1 | 2.4 - 4.7 mg/dL | | (LAB) | | | + + + + | POTASSIUM CMNT | No Hemo | | + + + + | ANION GAP | 9 | 4 - 11 mmol/L | + + + + | ANION GAP(ALB | 11 | 4 - 11 mmol/L | | CORRECTED) | | | + + + + + + + | Specimen | Performing Laboratory | + + + | Blood | [facility], [address]ORE [address] [address] | | | [place] [address] | + + + + + | Narrative | + + | GFR is estimated using the MDRD equation recommended by the National Kidney Disease | | Education Program. Estimated GFR Interpretive Information: <60 mL/min/1.73 sq | | m Chronic Kidney Disease <15 mL/min/1.73 sq | | m Kidney Failure Estimated GFR greater that 60 mL/min/1.73 | | sq m is of limited clinical value. The MDRD equation is not valid in the following | | situations: - Patients under 18 years of age - Severe malnutrition or obesity - | | Vegetarian diet - Rapidly changing kidney function - Amputees, paraplegics, or other | | muscle-wasting diseses | + + CBC (HEMOGRAM) ONLY (09/29/2017 4:16 AM) + + + + | Component | Value | Ref Range | + + + + | WHITE CELL COUNT | 9.04 | 3.50 - 10.80 K/cu mm | + + + + | RED CELL COUNT | 4.19 (L) | 4.50 - 6.00 M/cu mm | + + + + | HEMOGLOBIN | 12.2 (L) | 13.5 - 17.5 g/dL | + + + + | HEMATOCRIT | 38.3 (L) | 41.0 - 53.0 % | + + + + | MCV | 91.4 | 80.0 - 100.0 fL | + + + + | MCHC | 31.9 (L) | 32.0 - 36.0 g/dL | + + + + | RDW SD | 58.4 (H) | 35.1 - 46.3 fL | + + + + | PLATELET COUNT | 205 | 150 - 400 K/cu mm | + + + + | MPV | 9.4 (L) | 9.7 - 12.3 fL | + + + + | NRBC% | 0.0 | 0.0 - 0.3 % | + + + + | NRBC# | 0.00 | 0.00 - 0.02 K/cu mm | + + + + + + + | Specimen | Performing Laboratory | + + + | Blood | [facility], CORE [address] [facility] | | | [place] [address] | + + + + + | Narrative | + + | New reference ranges for MCV, MCHC, PLT, IG% and IG# effective 09/05/2017 | + + CBC ONLY (09/29/2017 4:16 AM) + + + | Specimen | Performing Laboratory | + + + | Blood | | + + + + + | Narrative | + + | The following orders were created for panel order CBC ONLY. | | Procedure | | Abnormality Status | | --------- | | ------ CBC (HEMOGRAM) | | ONLY[[id number]] Abnormal Final | | result Please view results for these tests on the | | individual orders. | + + CAPILLARY BLOOD GLUCOSE (NO CHG), POC (09/29/2017 12:27 AM) + +---------+ + | Component | Value | Ref Range | + +---------+ + | BLOOD GLUCOSE, POC | 151 (H) | 70 - 99 mg/dL | + +---------+ + + + + | Specimen | Performing Laboratory | + + + | | [facility] CARE TEST[facility] [address] | | | [place] [address] | + + + CAPILLARY BLOOD GLUCOSE (NO CHG), POC (09/28/2017 5:26 PM) + +---------+ + | Component | Value | Ref Range | + +---------+ + | BLOOD GLUCOSE, POC | 112 (H) | 70 - 99 mg/dL | + +---------+ + + + + | Specimen | Performing Laboratory | + + + | | [facility] [place], POINT OF CARE TESTS [address] | | | [place] [address] | + + + CAPILLARY BLOOD GLUCOSE (NO CHG), POC (09/28/2017 1:24 PM) + +---------+ + | Component | Value | Ref Range | + +---------+ + | BLOOD GLUCOSE, POC | 100 (H) | 70 - 99 mg/dL | + +---------+ + + + + | Specimen | Performing Laboratory | + + + | | [facility], POINT OF CARE TESTS [address] | | | [place] [address] | + + + 12 LEAD ECG (09/28/2017 10:25 AM) + + + + | Component | Value | Ref Range | + + + + | VENTRICULAR RATE | 68 | bpm | + + + + | ATRIAL RATE | 68 | ms | + + + + | P-R INTERVAL | 136 | ms | + + + + | P AXIS | 52 | deg | + + + + | QRS DURATION | 131 | ms | + + + + | QT | 428 | ms | + + + + | QTCB | 454 | ms | + + + + | R AXIS | 85 | deg | + + + + | T AXIS | 43 | deg | + + + + | ECG IMPRESSION | Sinus rhythm | | + + + + | ECG IMPRESSION | Right bundle branch block | | + + + + | ECG IMPRESSION | ST elevation, consider lateral injury- | | | | ABNORMAL ECG - | | + + + + | ECG IMPRESSION | Electronically signed by: PAULO CAVAZOS | | | | 09-28-2017 14:19:57 | | + + + + + + + | Specimen | Performing Laboratory | + + + | | [facility] [address] [place] [address] | | | [place] [address] | + + + CAPILLARY BLOOD GLUCOSE (NO CHG), POC (09/28/2017 6:47 AM) + +---------+ + | Component | Value | Ref Range | + +---------+ + | BLOOD GLUCOSE, POC | 147 (H) | 70 - 99 mg/dL | + +---------+ + + + + | Specimen | Performing Laboratory | + + + | | [facility] POINT [facility] CARE TESTS [address] | | | [place] [address] | + + + CBC (HEMOGRAM) ONLY (09/28/2017 4:58 AM) + + + + | Component | Value | Ref Range | + + + + | WHITE CELL COUNT | 9.21 | 3.50 - 10.80 K/cu mm | + + + + | RED CELL COUNT | 4.06 (L) | 4.50 - 6.00 M/cu mm | + + + + | HEMOGLOBIN | 11.9 (L) | 13.5 - 17.5 g/dL | + + + + | HEMATOCRIT | 37.1 (L) | 41.0 - 53.0 % | + + + + | MCV | 91.4 | 80.0 - 100.0 fL | + + + + | MCHC | 32.1 | 32.0 - 36.0 g/dL | + + + + | RDW SD | 58.6 (H) | 35.1 - 46.3 fL | + + + + | PLATELET COUNT | 210 | 150 - 400 K/cu mm | + + + + | MPV | 9.2 (L) | 9.7 - 12.3 fL | + + + + | NRBC% | 0.0 | 0.0 - 0.3 % | + + + + | NRBC# | 0.00 | 0.00 - 0.02 K/cu mm | + + + + + + + | Specimen | Performing Laboratory | + + + | Blood | [facility], [place]ORE [address] [place] [address] | | | [facility] [place] [address] | + + + + + | Narrative | + + | New reference ranges for MCV, MCHC, PLT, IG% and IG# effective 09/05/2017 | + + MAGNESIUM, PLASMA (09/28/2017 4:58 AM) + +-------+ + | Component | Value | Ref Range | + +-------+ + | MAGNESIUM,PLASMA | 2.1 | 1.6 - 2.6 mg/dL | + +-------+ + + + + | Specimen | Performing Laboratory | + + + | Blood | [facility], [facility] [address] [facility] | | | [place] [address] | + + + + + | Narrative | + + | Reference range change effective 12/11/16. | + + CBC ONLY (09/28/2017 4:58 AM) + + + | Specimen | Performing Laboratory | + + + | Blood | | + + + + + | Narrative | + + | The following orders were created for panel order CBC ONLY. | | Procedure | | Abnormality Status | | --------- | | ------ CBC (HEMOGRAM) | | ONLY[[id number]] Abnormal Final | | result Please view results for these tests on the | | individual orders. | + + RENAL FUNCTION SET (NA,K,CL,CO2,BUN,CREAT,GLUC,CA,PHOS,ALB ) (09/28/2017 4:58 AM) + + + + | Component | Value | Ref Range | + + + + | GLUCOSE, PLASMA | 139 (H) | 70 - 99 mg/dL | | (LAB) | | | + + + + | BUN, PLASMA (LAB) | 15 | 6 - 20 mg/dL | + + + + | CREATININE PLASMA | 0.44 (L) | 0.70 - 1.30 mg/dL | | (LAB) | | | + + + + | EGFR - | >60 | >60 mL/min | | GABONESE | | | + + + + | EGFR NON | >60 | >60 mL/min | | -GABONESE | | | + + + + | SODIUM, PLASMA (LAB) | 139 | 136 - 145 mmol/L | + + + + | POTASSIUM, PLASMA | 3.7 | 3.4 - 5.0 mmol/L | | (LAB) | | | + + + + | CHLORIDE, PLASMA | 106 | 97 - 108 mmol/L | | (LAB) | | | + + + + | TOTAL CO2, PLASMA | 27 | 21 - 32 mmol/L | | (LAB) | | | + + + + | CALCIUM, PLASMA | 8.7 | 8.6 - 10.2 mg/dL | | (LAB) | | | + + + + | CALCIUM(ALB | 9.5 | 8.6 - 10.2 mg/dL | | CORRECTED) | | | + + + + | ALBUMIN, PLASMA | 3.0 (L) | 3.5 - 4.7 g/dL | | (LAB) | | | + + + + | PHOSPHORUS, PLASMA | 3.9 | 2.4 - 4.7 mg/dL | | (LAB) | | | + + + + | POTASSIUM CMNT | No Hemo | | + + + + | ANION GAP | 6 | 4 - 11 mmol/L | + + + + | ANION GAP(ALB | 8 | 4 - 11 mmol/L | | CORRECTED) | | | + + + + + + + | Specimen | Performing Laboratory | + + + | Blood | [facility], CORE [address] [place] [address] | | | [place] [address] | + + + + + | Narrative | + + | GFR is estimated using the MDRD equation recommended by the National Kidney Disease | | Education Program. Estimated GFR Interpretive Information: <60 mL/min/1.73 sq | | m Chronic Kidney Disease <15 mL/min/1.73 sq | | m Kidney Failure Estimated GFR greater that 60 mL/min/1.73 | | sq m is of limited clinical value. The MDRD equation is not valid in the following | | situations: - Patients under 18 years of age - Severe malnutrition or obesity - | | Vegetarian diet - Rapidly changing kidney function - Amputees, paraplegics, or other | | muscle-wasting diseses | + + CAPILLARY BLOOD GLUCOSE (NO CHG), POC (09/27/2017 11:25 PM) + +---------+ + | Component | Value | Ref Range | + +---------+ + | BLOOD GLUCOSE, POC | 115 (H) | 70 - 99 mg/dL | + +---------+ + + + + | Specimen | Performing Laboratory | + + + | | [facility], POINT OF CARE TEST[facility] [address] | | | [place] [address] | + + + CAPILLARY BLOOD GLUCOSE (NO CHG), POC (09/27/2017 6:25 PM) + +---------+ + | Component | Value | Ref Range | + +---------+ + | BLOOD GLUCOSE, POC | 100 (H) | 70 - 99 mg/dL | + +---------+ + + + + | Specimen | Performing Laboratory | + + + | | [facility], POINT OF CARE TESTS [address] | | | [facility] [address] | + + + MODIFIED BARIUM SWALLOWING (09/27/2017 1:38 PM) + + + | Specimen | Performing Laboratory | + + + | | [facility] VOICE RECOGNITION 2 | + + + + + | Narrative | + + | EXAM: Modified Barium Swallow HISTORY: Traumatic brain injury. Silent | | aspiration with clinical improvement. Repeat barium swallow to assess. COMPARISONS: | | 09/24/2017. TECHNIQUE: Fluoroscopy assistance provided to speech pathology for | | performance of modified barium swallow. Fluoro Time 58 second(s) | | IMPRESSION: With the first sip of thick liquid there was immediate silent aspiration | | into the trachea. Large residuals in the vallecula which were poorly cleared with dry | | swallows. Please see speech pathology report for full details I have personally | | reviewed the images and, if necessary, edited the report. I agree with the report as now | | presented. Final signature: Julian Tinoco MD 09/27/2017 2:17 PM Preliminary: | | Julian Tinoco MD | + + + + | Procedure Note [...] poorly cleared with dry swallows. [facility] for full details | | | |I have personally reviewed the images and, if necessary, edited the report. I agree with th e report as now presented. | | | |Final signature: Julian Tinoco MD 09/27/2017 2:17 PM | |Preliminary: Julian Tinoco MD | + + CAPILLARY BLOOD GLUCOSE (NO CHG), POC (09/27/2017 12:50 PM) + +---------+ + | Component | Value | Ref Range | + +---------+ + | BLOOD GLUCOSE, POC | 125 (H) | 70 - 99 mg/dL | + +---------+ + + + + | Specimen | Performing Laboratory | + + + | | [facility], POINT OF CARE TESTS [address] | | | [place] [address] | + + + CAPILLARY BLOOD GLUCOSE (NO CHG), POC (09/27/2017 5:58 AM) + +---------+ + | Component | Value | Ref Range | + +---------+ + | BLOOD GLUCOSE, POC | 171 (H) | 70 - 99 mg/dL | + +---------+ + + + + | Specimen | Performing Laboratory | + + + | | [facility] [address] | | | [place] [address] | + + + CBC (HEMOGRAM) ONLY (09/27/2017 5:11 AM) + + + + | Component | Value | Ref Range | + + + + | WHITE CELL COUNT | 7.72 | 3.50 - 10.80 K/cu mm | + + + + | RED CELL COUNT | 3.91 (L) | 4.50 - 6.00 M/cu mm | + + + + | HEMOGLOBIN | 11.5 (L) | 13.5 - 17.5 g/dL | + + + + | HEMATOCRIT | 36.0 (L) | 41.0 - 53.0 % | + + + + | MCV | 92.1 | 80.0 - 100.0 fL | + + + + | MCHC | 31.9 (L) | 32.0 - 36.0 g/dL | + + + + | RDW SD | 59.2 (H) | 35.1 - 46.3 fL | + + + + | PLATELET COUNT | 191 | 150 - 400 K/cu mm | + + + + | MPV | 8.9 (L) | 9.7 - 12.3 fL | + + + + | NRBC% | 0.0 | 0.0 - 0.3 % | + + + + | NRBC# | 0.00 | 0.00 - 0.02 K/cu mm | + + + + + + + | Specimen | Performing Laboratory | + + + | Blood | [facility], [facility] [address] [facility] | | | [place] [address] | + + + + + | Narrative | + + | New reference ranges for MCV, MCHC, PLT, IG% and IG# effective 09/05/2017 | + + CBC ONLY (09/27/2017 5:11 AM) + + + | Specimen | Performing Laboratory | + + + | Blood | | + + + + + | Narrative | + + | The following orders were created for panel order CBC ONLY. | | Procedure | | Abnormality Status | | --------- | | ------ CBC (HEMOGRAM) | | ONLY[[id number]] Abnormal Final | | result Please view results for these tests on the | | individual orders. | + + MAGNESIUM, PLASMA (09/27/2017 5:10 AM) + +-------+ + | Component | Value | Ref Range | + +-------+ + | MAGNESIUM,PLASMA | 1.9 | 1.6 - 2.6 mg/dL | + +-------+ + + + + | Specimen | Performing Laboratory | + + + | Blood | [facility], [facility] [address] [facility] | | | [place] [address] | + + + + + | Narrative | + + | Reference range change effective 12/11/16. | + + RENAL FUNCTION SET (NA,K,CL,CO2,BUN,CREAT,GLUC,CA,PHOS,ALB ) (09/27/2017 5:10 AM) + + + + | Component | Value | Ref Range | + + + + | GLUCOSE, PLASMA | 120 (H) | 70 - 99 mg/dL | | (LAB) | | | + + + + | BUN, PLASMA (LAB) | 16 | 6 - 20 mg/dL | + + + + | CREATININE PLASMA | 0.48 (L) | 0.70 - 1.30 mg/dL | | (LAB) | | | + + + + | EGFR - | >60 | >60 mL/min | | GABONESE | | | + + + + | EGFR NON | >60 | >60 mL/min | | -GABONESE | | | + + + + | SODIUM, PLASMA (LAB) | 139 | 136 - 145 mmol/L | + + + + | POTASSIUM, PLASMA | 3.5 | 3.4 - 5.0 mmol/L | | (LAB) | | | + + + + | CHLORIDE, PLASMA | 104 | 97 - 108 mmol/L | | (LAB) | | | + + + + | TOTAL CO2, PLASMA | 28 | 21 - 32 mmol/L | | (LAB) | | | + + + + | CALCIUM, PLASMA | 8.7 | 8.6 - 10.2 mg/dL | | (LAB) | | | + + + + | CALCIUM(ALB | 9.7 | 8.6 - 10.2 mg/dL | | CORRECTED) | | | + + + + | ALBUMIN, PLASMA | 2.8 (L) | 3.5 - 4.7 g/dL | | (LAB) | | | + + + + | PHOSPHORUS, PLASMA | 4.1 | 2.4 - 4.7 mg/dL | | (LAB) | | | + + + + | POTASSIUM CMNT | No Hemo | | + + + + | ANION GAP | 7 | 4 - 11 mmol/L | + + + + | ANION GAP(ALB | 10 | 4 - 11 mmol/L | | CORRECTED) | | | + + + + + + + | Specimen | Performing Laboratory | + + + | Blood | [facility], [facility] [address] [facility] | | | [place] [address] | + + + + + | Narrative | + + | GFR is estimated using the MDRD equation recommended by the National Kidney Disease | | Education Program. Estimated GFR Interpretive Information: <60 mL/min/1.73 sq | | m Chronic Kidney Disease <15 mL/min/1.73 sq | | m Kidney Failure Estimated GFR greater that 60 mL/min/1.73 | | sq m is of limited clinical value. The MDRD equation is not valid in the following | | situations: - Patients under 18 years of age - Severe malnutrition or obesity - | | Vegetarian diet - Rapidly changing kidney function - Amputees, paraplegics, or other | | muscle-wasting diseses | + + CAPILLARY BLOOD GLUCOSE (NO CHG), POC (09/27/2017 12:41 AM) + +---------+ + | Component | Value | Ref Range | + +---------+ + | BLOOD GLUCOSE, POC | 169 (H) | 70 - 99 mg/dL | + +---------+ + + + + | Specimen | Performing Laboratory | + + + | | [facility] [place] [address] | | | [place] [address] | + + + CAPILLARY BLOOD GLUCOSE (NO CHG), POC (09/26/2017 5:32 PM) + +---------+ + | Component | Value | Ref Range | + +---------+ + | BLOOD GLUCOSE, POC | 130 (H) | 70 - 99 mg/dL | + +---------+ + + + + | Specimen | Performing Laboratory | + + + | | [facility], [facility] [address] | | | [place] [address] | + + + 12 LEAD ECG (09/26/2017 1:11 PM) + + + + | Component | Value | Ref Range | + + + + | VENTRICULAR RATE | 72 | bpm | + + + + | ATRIAL RATE | 72 | ms | + + + + | P-R INTERVAL | 135 | ms | + + + + | P AXIS | 63 | deg | + + + + | QRS DURATION | 135 | ms | + + + + | QT | 425 | ms | + + + + | QTCB | 466 | ms | + + + + | R AXIS | 88 | deg | + + + + | T AXIS | 32 | deg | + + + + | ECG IMPRESSION | Sinus rhythm | | + + + + | ECG IMPRESSION | Right bundle branch block | | + + + + | ECG IMPRESSION | Borderline ST elevation, lateral leads- | | | | ABNORMAL ECG - | | + + + + | ECG IMPRESSION | Electronically signed by: PAULO CAVAZOS | | | | 09-26-2017 16:47:02 | | + + + + + + + | Specimen | Performing Laboratory | + + + | | [facility] [address] [place] [address] | | | [place] [address] | + + + CAPILLARY BLOOD GLUCOSE (NO CHG), POC (09/26/2017 12:37 PM) + +-------+ + | Component | Value | Ref Range | + +-------+ + | BLOOD GLUCOSE, POC | 88 | 70 - 99 mg/dL | + +-------+ + + + + | Specimen | Performing Laboratory | + + + | | [facility] [place], [facility] [address] | | | [place] [address] | + + + CAPILLARY BLOOD GLUCOSE (NO CHG), POC (09/26/2017 9:22 AM) + +---------+ + | Component | Value | Ref Range | + +---------+ + | BLOOD GLUCOSE, POC | 119 (H) | 70 - 99 mg/dL | + +---------+ + + + + | Specimen | Performing Laboratory | + + + | | [facility] [place], [facility] [address] | | | [place] [address] | + + + CAPILLARY BLOOD GLUCOSE (NO CHG), POC (09/26/2017 5:54 AM) + +---------+ + | Component | Value | Ref Range | + +---------+ + | BLOOD GLUCOSE, POC | 138 (H) | 70 - 99 mg/dL | + +---------+ + + + + | Specimen | Performing Laboratory | + + + | | [facility], [facility] [address] | | | [place] [address] | + + + CBC (HEMOGRAM) ONLY (09/26/2017 5:53 AM) + + + + | Component | Value | Ref Range | + + + + | WHITE CELL COUNT | 7.45 | 3.50 - 10.80 K/cu mm | + + + + | RED CELL COUNT | 3.93 (L) | 4.50 - 6.00 M/cu mm | + + + + | HEMOGLOBIN | 11.5 (L) | 13.5 - 17.5 g/dL | + + + + | HEMATOCRIT | 36.5 (L) | 41.0 - 53.0 % | + + + + | MCV | 92.9 | 80.0 - 100.0 fL | + + + + | MCHC | 31.5 (L) | 32.0 - 36.0 g/dL | + + + + | RDW SD | 60.8 (H) | 35.1 - 46.3 fL | + + + + | PLATELET COUNT | 221 | 150 - 400 K/cu mm | + + + + | MPV | 9.2 (L) | 9.7 - 12.3 fL | + + + + | NRBC% | 0.0 | 0.0 - 0.3 % | + + + + | NRBC# | 0.00 | 0.00 - 0.02 K/cu mm | + + + + + + + | Specimen | Performing Laboratory | + + + | Blood | [facility], [facility] [address] [facility] | | | [place] [address] | + + + + + | Narrative | + + | New reference ranges for MCV, MCHC, PLT, IG% and IG# effective 09/05/2017 | + + MAGNESIUM, PLASMA (09/26/2017 5:53 AM) + +-------+ + | Component | Value | Ref Range | + +-------+ + | MAGNESIUM,PLASMA | 2.1 | 1.6 - 2.6 mg/dL | + +-------+ + + + + | Specimen | Performing Laboratory | + + + | Blood | [facility], [facility] [address] [place] [address] | | | [place] [address] | + + + + + | Narrative | + + | Reference range change effective 12/11/16. | + + CBC ONLY (09/26/2017 5:53 AM) + + + | Specimen | Performing Laboratory | + + + | Blood | | + + + + + | Narrative | + + | The following orders were created for panel order CBC ONLY. | | Procedure | | Abnormality Status | | --------- | | ------ CBC (HEMOGRAM) | | ONLY[[id number]] Abnormal Final | | result Please view results for these tests on the | | individual orders. | + + RENAL FUNCTION SET (NA,K,CL,CO2,BUN,CREAT,GLUC,CA,PHOS,ALB ) (09/26/2017 5:53 AM) + + + + | Component | Value | Ref Range | + + + + | GLUCOSE, PLASMA | 140 (H) | 70 - 99 mg/dL | | (LAB) | | | + + + + | BUN, PLASMA (LAB) | 22 (H) | 6 - 20 mg/dL | + + + + | CREATININE PLASMA | 0.47 (L) | 0.70 - 1.30 mg/dL | | (LAB) | | | + + + + | EGFR - | >60 | >60 mL/min | | GABONESE | | | + + + + | EGFR NON | >60 | >60 mL/min | | -GABONESE | | | + + + + | SODIUM, PLASMA (LAB) | 139 | 136 - 145 mmol/L | + + + + | POTASSIUM, PLASMA | 3.7 | 3.4 - 5.0 mmol/L | | (LAB) | | | + + + + | CHLORIDE, PLASMA | 106 | 97 - 108 mmol/L | | (LAB) | | | + + + + | TOTAL CO2, PLASMA | 26 | 21 - 32 mmol/L | | (LAB) | | | + + + + | CALCIUM, PLASMA | 8.3 (L) | 8.6 - 10.2 mg/dL | | (LAB) | | | + + + + | CALCIUM(ALB | 9.2 | 8.6 - 10.2 mg/dL | | CORRECTED) | | | + + + + | ALBUMIN, PLASMA | 2.9 (L) | 3.5 - 4.7 g/dL | | (LAB) | | | + + + + | PHOSPHORUS, PLASMA | 4.0 | 2.4 - 4.7 mg/dL | | (LAB) | | | + + + + | POTASSIUM CMNT | No Hemo | | + + + + | ANION GAP | 7 | 4 - 11 mmol/L | + + + + | ANION GAP(ALB | 9 | 4 - 11 mmol/L | | CORRECTED) | | | + + + + + + + | Specimen | Performing Laboratory | + + + | Blood | [facility], [facility] [address] [facility] | | | [place] [address] | + + + + + | Narrative | + + | GFR is estimated using the MDRD equation recommended by the National Kidney Disease | | Education Program. Estimated GFR Interpretive Information: <60 mL/min/1.73 sq | | m Chronic Kidney Disease <15 mL/min/1.73 sq | | m Kidney Failure Estimated GFR greater that 60 mL/min/1.73 | | sq m is of limited clinical value. The MDRD equation is not valid in the following | | situations: - Patients under 18 years of age - Severe malnutrition or obesity - | | Vegetarian diet - Rapidly changing kidney function - Amputees, paraplegics, or other | | muscle-wasting diseses | + + CAPILLARY BLOOD GLUCOSE (NO CHG), POC (09/25/2017 11:53 PM) + +---------+ + | Component | Value | Ref Range | + +---------+ + | BLOOD GLUCOSE, POC | 151 (H) | 70 - 99 mg/dL | + +---------+ + + + + | Specimen | Performing Laboratory | + + + | | [facility] 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 COMPARISON: 09/22/2017 CT | | TECHNIQUE: Multiplanar multi-sequence MRI of the brain without and with gadolinium based | | intravenous contrast. FINDINGS: BRAIN: There has been mild interval decrease in | | the size of the extra-axial fluid collection overlying the right cranioplasty site, | | which now measures 11 mm in maximal thickness, previously 15 mm. This collection shows | | some diffusion restriction, however does not show rim enhancement. There is unchanged 2 | | mm leftward midline shift and mild mass effect on the right lateral ventricle. There is | | an unchanged focus of encephalomalacia in the right inferior temporal lobe. No new | | evidence of hemorrhage, mass, or acute infarction. No abnormal enhancement. No abnormal | | restricted diffusion. SOFT TISSUES AND MARROW: There is an unchanged left frontal | | subgaleal hematoma. FACE AND ORBITS: Visualized portions are unremarkable. | | IMPRESSION: Mild interval decrease in size of the extra-axial fluid collection | | underlying the cranioplasty site with stable, mild leftward midline shift. I have | | personally reviewed the images and, if necessary, edited the report. I agree with the | | report as now presented. Final signature: Daniel Armijo MD 09/25/2017 12:31 PM | | Preliminary: Dae Izaguirre MD 09/25/2017 12:11 PM | + + + + | Procedure Note | + + | 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, [employer] Res In Interface - 09/25/2017 12:32 PM [...] MD 09/25/2017 12:11 PM | + + CBC (HEMOGRAM) ONLY (09/25/2017 5:36 AM) + + + + | Component | Value | Ref Range | + + + + | WHITE CELL COUNT | 9.73 | 3.50 - 10.80 K/cu mm | + + + + | RED CELL COUNT | 4.00 (L) | 4.50 - 6.00 M/cu mm | + + + + | HEMOGLOBIN | 11.6 (L) | 13.5 - 17.5 g/dL | + + + + | HEMATOCRIT | 37.0 (L) | 41.0 - 53.0 % | + + + + | MCV | 92.5 | 80.0 - 100.0 fL | + + + + | MCHC | 31.4 (L) | 32.0 - 36.0 g/dL | + + + + | RDW SD | 60.1 (H) | 35.1 - 46.3 fL | + + + + | PLATELET COUNT | 223 | 150 - 400 K/cu mm | + + + + | MPV | 9.0 (L) | 9.7 - 12.3 fL | + + + + | NRBC% | 0.0 | 0.0 - 0.3 % | + + + + | NRBC# | 0.00 | 0.00 - 0.02 K/cu mm | + + + + + + + | Specimen | Performing Laboratory | + + + | Blood | [facility], [facility] [address] [facility] | | | [place] [address] | + + + + + | Narrative | + + | New reference ranges for MCV, MCHC, PLT, IG% and IG# effective 09/05/2017 | + + MAGNESIUM, PLASMA (09/25/2017 5:36 AM) + +-------+ + | Component | Value | Ref Range | + +-------+ + | MAGNESIUM,PLASMA | 2.0 | 1.6 - 2.6 mg/dL | + +-------+ + + + + | Specimen | Performing Laboratory | + + + | Blood | [facility], [address] [address] [place] [address] | | | [place] [address] | + + + + + | Narrative | + + | Reference range change effective 12/11/16. | + + CBC ONLY (09/25/2017 5:36 AM) + + + | Specimen | Performing Laboratory | + + + | Blood | | + + + + + | Narrative | + + | The following orders were created for panel order CBC ONLY. | | Procedure | | Abnormality Status | | --------- | | ------ CBC (HEMOGRAM) | | ONLY[[id number]] Abnormal Final | | result Please view results for these tests on the | | individual orders. | + + RENAL FUNCTION SET (NA,K,CL,CO2,BUN,CREAT,GLUC,CA,PHOS,ALB ) (09/25/2017 5:36 AM) + + + + | Component | Value | Ref Range | + + + + | GLUCOSE, PLASMA | 110 (H) | 70 - 99 mg/dL | | (LAB) | | | + + + + | BUN, PLASMA (LAB) | 20 | 6 - 20 mg/dL | + + + + | CREATININE PLASMA | 0.47 (L) | 0.70 - 1.30 mg/dL | | (LAB) | | | + + + + | EGFR - | >60 | >60 mL/min | | GABONESE | | | + + + + | EGFR NON | >60 | >60 mL/min | | -GABONESE | | | + + + + | SODIUM, PLASMA (LAB) | 141 | 136 - 145 mmol/L | + + + + | POTASSIUM, PLASMA | 3.7 | 3.4 - 5.0 mmol/L | | (LAB) | | | + + + + | CHLORIDE, PLASMA | 107 | 97 - 108 mmol/L | | (LAB) | | | + + + + | TOTAL CO2, PLASMA | 27 | 21 - 32 mmol/L | | (LAB) | | | + + + + | CALCIUM, PLASMA | 8.4 (L) | 8.6 - 10.2 mg/dL | | (LAB) | | | + + + + | CALCIUM(ALB | 9.3 | 8.6 - 10.2 mg/dL | | CORRECTED) | | | + + + + | ALBUMIN, PLASMA | 2.9 (L) | 3.5 - 4.7 g/dL | | (LAB) | | | + + + + | PHOSPHORUS, PLASMA | 3.9 | 2.4 - 4.7 mg/dL | | (LAB) | | | + + + + | POTASSIUM CMNT | No Hemo | | + + + + | ANION GAP | 7 | 4 - 11 mmol/L | + + + + | ANION GAP(ALB | 9 | 4 - 11 mmol/L | | CORRECTED) | | | + + + + + + + | Specimen | Performing Laboratory | + + + | Blood | [facility], [address] [address] [place] [address] | | | [place] [address] | + + + + + | Narrative | + + | GFR is estimated using the MDRD equation recommended by the National Kidney Disease | | Education Program. Estimated GFR Interpretive Information: <60 mL/min/1.73 sq | | m Chronic Kidney Disease <15 mL/min/1.73 sq | | m Kidney Failure Estimated GFR greater that 60 mL/min/1.73 | | sq m is of limited clinical value. The MDRD equation is not valid in the following | | situations: - Patients under 18 years of age - Severe malnutrition or obesity - | | Vegetarian diet - Rapidly changing kidney function - Amputees, paraplegics, or other | | muscle-wasting diseses | + + 12 LEAD ECG (09/24/2017 9:28 PM) + + + + | Component | Value | Ref Range | + + + + | VENTRICULAR RATE | 74 | bpm | + + + + | ATRIAL RATE | 74 | ms | + + + + | P-R INTERVAL | 116 | ms | + + + + | P AXIS | 28 | deg | + + + + | QRS DURATION | 129 | ms | + + + + | QT | 412 | ms | + + + + | QTCB | 457 | ms | + + + + | R AXIS | 93 | deg | + + + + | T AXIS | 36 | deg | + + + + | ECG IMPRESSION | Sinus rhythm | | + + + + | ECG IMPRESSION | Right bundle branch block | | + + + + | ECG IMPRESSION | Consider anterolateral infarct, acute- | | | | ABNORMAL ECG - | | + + + + | ECG IMPRESSION | Electronically signed by: GABRIELA VANN | | | | 09-25-2017 14:01:36 | | + + + + + + + | Specimen | Performing Laboratory | + + + | | [facility] [address] [place] [address] | | | [facility] [address] | + + + MODIFIED BARIUM SWALLOWING (09/24/2017 12:50 PM) + + + | Specimen | Performing Laboratory | + + + | | [facility] VOICE RECOGNITION 2 | + + + + + | Narrative | + + | EXAM: Modified Barium Swallow HISTORY: dysphagia COMPARISONS: None. | | TECHNIQUE: Fluoroscopy assistance provided to speech pathology for performance of | | modified barium swallow. Fluoro Time 55 second(s) IMPRESSION: Intermittent | | penetration and aspiration. Vallecular residue. Please see speech pathology report | | for full details I have personally reviewed the images and, if necessary, edited the | | report. I agree with the report as now presented. Final signature: Edelmira Dumont | | MD Issa 09/24/2017 2:43 PM Preliminary: Edelmira Parsons MD | + + + + | Procedure Note | + + | 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, [employer] In Interface - 09/24/2017 2:44 PM PDT [...] |Preliminary: Edelmira Parsons MD | + + VAS LAB VENOUS DUPLEX LOWER EXTREMITY BILAT COMP (09/24/2017 11:57 AM) + + + | Specimen | Performing Laboratory | + + + | | [facility] V[facility] US | + + + + + | Narrative | + + | Bilateral: The duplex scanner was used to examine the deep and superficial veins of | | the right and left lower extremities. The veins are patent bilaterally with normal | | flow and responses to augmentation and compression maneuvers and no thrombus is noted. | | Conclusions: A normal venous examination of the bilateral lower extremities. No | | venous thrombosis was detected. I have personally reviewed the images and, | | if necessary, edited the report. I agree with the report as now presented. | + + + + | Procedure Note | + + | 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, [employer] Res In Interface - 09/24/2017 4:09 PM [...] report as now presented. | + + MAGNESIUM, PLASMA (09/24/2017 6:30 AM) + +-------+ + | Component | Value | Ref Range | + +-------+ + | MAGNESIUM,PLASMA | 2.0 | 1.6 - 2.6 mg/dL | + +-------+ + + + + | Specimen | Performing Laboratory | + + + | Blood | [facility], [place] [address] [place] [address] | | | [place], [place] [address] | + + + + + | Narrative | + + | Reference range change effective 12/11/16. | + + RENAL FUNCTION SET (NA,K,CL,CO2,BUN,CREAT,GLUC,CA,PHOS,ALB ) (09/24/2017 6:30 AM) + + + + | Component | Value | Ref Range | + + + + | GLUCOSE, PLASMA | 97 | 70 - 99 mg/dL | | (LAB) | | | + + + + | BUN, PLASMA (LAB) | 18 | 6 - 20 mg/dL | + + + + | CREATININE PLASMA | 0.43 (L) | 0.70 - 1.30 mg/dL | | (LAB) | | | + + + + | EGFR - | >60 | >60 mL/min | | GABONESE | | | + + + + | EGFR NON | >60 | >60 mL/min | | -GABONESE | | | + + + + | SODIUM, PLASMA (LAB) | 142 | 136 - 145 mmol/L | + + + + | POTASSIUM, PLASMA | 4.0 | 3.4 - 5.0 mmol/L | | (LAB) | | | + + + + | CHLORIDE, PLASMA | 108 | 97 - 108 mmol/L | | (LAB) | | | + + + + | TOTAL CO2, PLASMA | 26 | 21 - 32 mmol/L | | (LAB) | | | + + + + | CALCIUM, PLASMA | 8.4 (L) | 8.6 - 10.2 mg/dL | | (LAB) | | | + + + + | CALCIUM(ALB | 9.2 | 8.6 - 10.2 mg/dL | | CORRECTED) | | | + + + + | ALBUMIN, PLASMA | 3.0 (L) | 3.5 - 4.7 g/dL | | (LAB) | | | + + + + | PHOSPHORUS, PLASMA | 3.5 | 2.4 - 4.7 mg/dL | | (LAB) | | | + + + + | POTASSIUM CMNT | No Hemo | | + + + + | ANION GAP | 8 | 4 - 11 mmol/L | + + + + | ANION GAP(ALB | 10 | 4 - 11 mmol/L | | CORRECTED) | | | + + + + + + + | Specimen | Performing Laboratory | + + + | Blood | [facility], [address] [address] [facility] | | | [place] [address] | + + + + + | Narrative | + + | GFR is estimated using the MDRD equation recommended by the National Kidney Disease | | Education Program. Estimated GFR Interpretive Information: <60 mL/min/1.73 sq | | m Chronic Kidney Disease <15 mL/min/1.73 sq | | m Kidney Failure Estimated GFR greater that 60 mL/min/1.73 | | sq m is of limited clinical value. The MDRD equation is not valid in the following | | situations: - Patients under 18 years of age - Severe malnutrition or obesity - | | Vegetarian diet - Rapidly changing kidney function - Amputees, paraplegics, or other | | muscle-wasting diseses | + + CBC (HEMOGRAM) ONLY (09/24/2017 6:29 AM) + + + + | Component | Value | Ref Range | + + + + | WHITE CELL COUNT | 9.72 | 3.50 - 10.80 K/cu mm | + + + + | RED CELL COUNT | 4.06 (L) | 4.50 - 6.00 M/cu mm | + + + + | HEMOGLOBIN | 11.8 (L) | 13.5 - 17.5 g/dL | + + + + | HEMATOCRIT | 37.4 (L) | 41.0 - 53.0 % | + + + + | MCV | 92.1 | 80.0 - 100.0 fL | + + + + | MCHC | 31.6 (L) | 32.0 - 36.0 g/dL | + + + + | RDW SD | 60.4 (H) | 35.1 - 46.3 fL | + + + + | PLATELET COUNT | 223 | 150 - 400 K/cu mm | + + + + | MPV | 8.7 (L) | 9.7 - 12.3 fL | + + + + | NRBC% | 0.0 | 0.0 - 0.3 % | + + + + | NRBC# | 0.00 | 0.00 - 0.02 K/cu mm | + + + + + + + | Specimen | Performing Laboratory | + + + | Blood | [facility], [facility] [address] [facility] | | | [place] [address] | + + + + + | Narrative | + + | New reference ranges for MCV, MCHC, PLT, IG% and IG# effective 09/05/2017 | + + CBC ONLY (09/24/2017 6:29 AM) + + + | Specimen | Performing Laboratory | + + + | Blood | | + + + + + | Narrative | + + | The following orders were created for panel order CBC ONLY. | | Procedure | | Abnormality Status | | --------- | | ------ CBC (HEMOGRAM) | | ONLY[[id number]] Abnormal Final | | result Please view results for these tests on the | | individual orders. | + + CBC (HEMOGRAM) ONLY (09/23/2017 4:04 AM) + + + + | Component | Value | Ref Range | + + + + | WHITE CELL COUNT | 12.99 (H) | 3.50 - 10.80 K/cu mm | + + + + | RED CELL COUNT | 3.85 (L) | 4.50 - 6.00 M/cu mm | + + + + | HEMOGLOBIN | 11.2 (L) | 13.5 - 17.5 g/dL | + + + + | HEMATOCRIT | 35.9 (L) | 41.0 - 53.0 % | + + + + | MCV | 93.2 | 80.0 - 100.0 fL | + + + + | MCHC | 31.2 (L) | 32.0 - 36.0 g/dL | + + + + | RDW SD | 61.4 (H) | 35.1 - 46.3 fL | + + + + | PLATELET COUNT | 247 | 150 - 400 K/cu mm | + + + + | MPV | 9.0 (L) | 9.7 - 12.3 fL | + + + + | NRBC% | 0.0 | 0.0 - 0.3 % | + + + + | NRBC# | 0.00 | 0.00 - 0.02 K/cu mm | + + + + + + + | Specimen | Performing Laboratory | + + + | Blood | [facility], [address] [facility] | | | [place] [address] | + + + + + | Narrative | + + | New reference ranges for MCV, MCHC, PLT, IG% and IG# effective 09/05/2017 | + + MAGNESIUM, PLASMA (09/23/2017 4:04 AM) + +-------+ + | Component | Value | Ref Range | + +-------+ + | MAGNESIUM,PLASMA | 2.1 | 1.6 - 2.6 mg/dL | + +-------+ + + + + | Specimen | Performing Laboratory | + + + | Blood | [facility], [address] [facility] | | | [place] [address] | + + + + + | Narrative | + + | Reference range change effective 12/11/16. | + + CBC ONLY (09/23/2017 4:04 AM) + + + | Specimen | Performing Laboratory | + + + | Blood | | + + + + + | Narrative | + + | The following orders were created for panel order CBC ONLY. | | Procedure | | Abnormality Status | | --------- | | ------ CBC (HEMOGRAM) | | ONLY[[id number]] Abnormal Final | | result Please view results for these tests on the | | individual orders. | + + RENAL FUNCTION SET (NA,K,CL,CO2,BUN,CREAT,GLUC,CA,PHOS,ALB ) (09/23/2017 4:04 AM) + + + + | Component | Value | Ref Range | + + + + | GLUCOSE, PLASMA | 136 (H) | 70 - 99 mg/dL | | (LAB) | | | + + + + | BUN, PLASMA (LAB) | 19 | 6 - 20 mg/dL | + + + + | CREATININE PLASMA | 0.47 (L) | 0.70 - 1.30 mg/dL | | (LAB) | | | + + + + | EGFR - | >60 | >60 mL/min | | GABONESE | | | + + + + | EGFR NON | >60 | >60 mL/min | | -GABONESE | | | + + + + | SODIUM, PLASMA (LAB) | 140 | 136 - 145 mmol/L | + + + + | POTASSIUM, PLASMA | 3.6 | 3.4 - 5.0 mmol/L | | (LAB) | | | + + + + | CHLORIDE, PLASMA | 106 | 97 - 108 mmol/L | | (LAB) | | | + + + + | TOTAL CO2, PLASMA | 27 | 21 - 32 mmol/L | | (LAB) | | | + + + + | CALCIUM, PLASMA | 8.0 (L) | 8.6 - 10.2 mg/dL | | (LAB) | | | + + + + | CALCIUM(ALB | 9.0 | 8.6 - 10.2 mg/dL | | CORRECTED) | | | + + + + | ALBUMIN, PLASMA | 2.8 (L) | 3.5 - 4.7 g/dL | | (LAB) | | | + + + + | PHOSPHORUS, PLASMA | 3.3 | 2.4 - 4.7 mg/dL | | (LAB) | | | + + + + | POTASSIUM CMNT | No Hemo | | + + + + | ANION GAP | 7 | 4 - 11 mmol/L | + + + + | ANION GAP(ALB | 10 | 4 - 11 mmol/L | | CORRECTED) | | | + + + + + + + | Specimen | Performing Laboratory | + + + | Blood | [facility], [address]ORE [address] [facility] | | | [place] [address] | + + + + + | Narrative | + + | GFR is estimated using the MDRD equation recommended by the National Kidney Disease | | Education Program. Estimated GFR Interpretive Information: <60 mL/min/1.73 sq | | m Chronic Kidney Disease <15 mL/min/1.73 sq | | m Kidney Failure Estimated GFR greater that 60 mL/min/1.73 | | sq m is of limited clinical value. The MDRD equation is not valid in the following | | situations: - Patients under 18 years of age - Severe malnutrition or obesity - | | Vegetarian diet - Rapidly changing kidney function - Amputees, paraplegics, or other | | muscle-wasting diseses | + + CAPILLARY BLOOD GLUCOSE (NO CHG), POC (09/22/2017 6:22 PM) + +---------+ + | Component | Value | Ref Range | + +---------+ + | BLOOD GLUCOSE, POC | 109 (H) | 70 - 99 mg/dL | + +---------+ + + + + | Specimen | Performing Laboratory | + + + | | [facility], [facility] TESTS [address] | | | [place] [address] | + + + CAPILLARY BLOOD GLUCOSE (NO CHG), POC (09/22/2017 1:29 PM) + +---------+ + | Component | Value | Ref Range | + +---------+ + | BLOOD GLUCOSE, POC | 113 (H) | 70 - 99 mg/dL | + +---------+ + + + + | Specimen | Performing Laboratory | + + + | | [facility], POINT OF CARE TESTS [address] | | | [place] [address] | + + + CT HEAD WO CONTRAST (09/22/2017 12:25 PM) + + + | Specimen | Performing Laboratory | + + + | | [facility] VOICE RECOGNITION 2 | + + + + + | Narrative | + + | EXAM: CT HEAD WITHOUT CONTRAST HISTORY: declining neuro exam after increased | | [facility] COMPARISON: CT 09/21/2017, 09/12/2017 TECHNIQUE: CT of the head without | | intravenous contrast. FINDINGS: The extra-axial fluid underlying the right | | cranioplasty site is minimally decreased in depth, now measuring 15 mm, previously 12 | | mm. There is stable appearance of the mild mass effect on the right lateral ventricle | | with 2 mm leftward midline shift. There is unchanged appearance of the right temporal | | lobe encephalomalacia. No new evidence of hemorrhage, mass, or acute infarction. There | | is slight expansion of the right frontal subgaleal hematoma. No new fractures or | | destructive lesions. IMPRESSION: Mild decrease of the extra-axial fluid | | collection with stable mild, leftward midline shift. I have personally reviewed the | | images and, if necessary, edited the report. I agree with the report as now presented. | | Final signature: Navjot Orta MD 09/22/2017 4:24 PM Preliminary: Cherri Vargas, | | | + + + + | Procedure Note [...] |Preliminary: Cherri Vargas MD | + + TROPONIN I, PLASMA (09/22/2017 9:52 AM) + +-------+ + | Component | Value | Ref Range | + +-------+ + | TROPONIN I | <0.02 | <0.80 ng/mL | + +-------+ + + + + | Specimen | Performing Laboratory | + + + | Blood | [facility], [address]ORE [address] [facility] | | | [place] [address] | + + + 12 LEAD ECG (09/22/2017 9:08 AM) + + + + | Component | Value | Ref Range | + + + + | VENTRICULAR RATE | 78 | bpm | + + + + | ATRIAL RATE | 77 | ms | + + + + | P-R INTERVAL | 138 | ms | + + + + | P AXIS | 69 | deg | + + + + | QRS DURATION | 124 | ms | + + + + | QT | 390 | ms | + + + + | QTCB | 445 | ms | + + + + | R AXIS | 86 | deg | + + + + | T AXIS | 43 | deg | + + + + | ECG IMPRESSION | Sinus rhythm | | + + + + | ECG IMPRESSION | Right bundle branch block- ABNORMAL ECG - | | + + + + | ECG IMPRESSION | Electronically signed by: AJAY DE LOS SANTOS | | | | 09-22-2017 09:42:44 | | + + + + + + + | Specimen | Performing Laboratory | + + + | | [facility] [address] [place] [address] | | | [place] [address] | + + + CBC (HEMOGRAM) ONLY (09/22/2017 5:48 AM) + + + + | Component | Value | Ref Range | + + + + | WHITE CELL COUNT | 12.49 (H) | 3.50 - 10.80 K/cu mm | + + + + | RED CELL COUNT | 3.97 (L) | 4.50 - 6.00 M/cu mm | + + + + | HEMOGLOBIN | 11.5 (L) | 13.5 - 17.5 g/dL | + + + + | HEMATOCRIT | 36.9 (L) | 41.0 - 53.0 % | + + + + | MCV | 92.9 | 80.0 - 100.0 fL | + + + + | MCHC | 31.2 (L) | 32.0 - 36.0 g/dL | + + + + | RDW SD | 61.1 (H) | 35.1 - 46.3 fL | + + + + | PLATELET COUNT | 254 | 150 - 400 K/cu mm | + + + + | MPV | 8.8 (L) | 9.7 - 12.3 fL | + + + + | NRBC% | 0.0 | 0.0 - 0.3 % | + + + + | NRBC# | 0.00 | 0.00 - 0.02 K/cu mm | + + + + + + + | Specimen | Performing Laboratory | + + + | Blood | [facility], CORE [address] [facility] | | | [place] [address] | + + + + + | Narrative | + + | New reference ranges for MCV, MCHC, PLT, IG% and IG# effective 09/05/2017 | + + MAGNESIUM, PLASMA (09/22/2017 5:48 AM) + +-------+ + | Component | Value | Ref Range | + +-------+ + | MAGNESIUM,PLASMA | 1.9 | 1.6 - 2.6 mg/dL | + +-------+ + + + + | Specimen | Performing Laboratory | + + + | Blood | [facility], [address] [facility] | | | [place] [address] | + + + + + | Narrative | + + | Reference range change effective 8/15/17. | + + CBC ONLY (09/22/2017 5:48 AM) + + + | Specimen | Performing Laboratory | + + + | Blood | | + + + + + | Narrative | + + | The following orders were created for panel order CBC ONLY. | | Procedure | | Abnormality Status | | --------- | | ------ CBC (HEMOGRAM) | | ONLY[[id number]] Abnormal Final | | result Please view results for these tests on the | | individual orders. | + + RENAL FUNCTION SET (NA,K,CL,CO2,BUN,CREAT,GLUC,CA,PHOS,ALB ) (09/22/2017 5:48 AM) + + + + | Component | Value | Ref Range | + + + + | GLUCOSE, PLASMA | 141 (H) | 70 - 99 mg/dL | | (LAB) | | | + + + + | BUN, PLASMA (LAB) | 20 | 6 - 20 mg/dL | + + + + | CREATININE PLASMA | 0.41 (L) | 0.70 - 1.30 mg/dL | | (LAB) | | | + + + + | EGFR - | >60 | >60 mL/min | | GABONESE | | | + + + + | EGFR NON | >60 | >60 mL/min | | -GABONESE | | | + + + + | SODIUM, PLASMA (LAB) | 140 | 136 - 145 mmol/L | + + + + | POTASSIUM, PLASMA | 3.7 | 3.4 - 5.0 mmol/L | | (LAB) | | | + + + + | CHLORIDE, PLASMA | 108 | 97 - 108 mmol/L | | (LAB) | | | + + + + | TOTAL CO2, PLASMA | 27 | 21 - 32 mmol/L | | (LAB) | | | + + + + | CALCIUM, PLASMA | 8.2 (L) | 8.6 - 10.2 mg/dL | | (LAB) | | | + + + + | CALCIUM(ALB | 9.0 | 8.6 - 10.2 mg/dL | | CORRECTED) | | | + + + + | ALBUMIN, PLASMA | 3.0 (L) | 3.5 - 4.7 g/dL | | (LAB) | | | + + + + | PHOSPHORUS, PLASMA | 3.4 | 2.4 - 4.7 mg/dL | | (LAB) | | | + + + + | POTASSIUM CMNT | No Hemo | | + + + + | ANION GAP | 5 | 4 - 11 mmol/L | + + + + | ANION GAP(ALB | 7 | 4 - 11 mmol/L | | CORRECTED) | | | + + + + + + + | Specimen | Performing Laboratory | + + + | Blood | [facility], [address] [facility] | | | [place] [address] | + + + + + | Narrative | + + | GFR is estimated using the MDRD equation recommended by the National Kidney Disease | | Education Program. Estimated GFR Interpretive Information: <60 mL/min/1.73 sq | | m Chronic Kidney Disease <15 mL/min/1.73 sq | | m Kidney Failure Estimated GFR greater that 60 mL/min/1.73 | | sq m is of limited clinical value. The MDRD equation is not valid in the following | | situations: - Patients under 18 years of age - Severe malnutrition or obesity - | | Vegetarian diet - Rapidly changing kidney function - Amputees, paraplegics, or other | | muscle-wasting diseses | + + CAPILLARY BLOOD GLUCOSE (NO CHG), POC (09/21/2017 10:01 PM) + +---------+ + | Component | Value | Ref Range | + +---------+ + | BLOOD GLUCOSE, POC | 106 (H) | 70 - 99 mg/dL | + +---------+ + + + + | Specimen | Performing Laboratory | + + + | | [facility] [address] | | | [place] [address] | + + + CT HEAD WO CONTRAST (09/21/2017 9:53 PM) + + + | Specimen | Performing Laboratory | + + + | | [facility] VOICE RECOGNITION 2 | + + + + + | Narrative | + + | EXAM: CT HEAD WITHOUT CONTRAST HISTORY: new left facial droop, dilated L pupil | | COMPARISON: 09/12/2017 TECHNIQUE: CT of the head without intravenous contrast. | | FINDINGS: BRAIN: Extra-axial fluid underlying the right sided cranioplasty has | | increased in depth, now 17 mm, previously 12 mm, with associated mild mass effect on the | | right lateral ventricle and 2 mm leftward midline shift. Right temporal | | encephalomalacia is unchanged. No evidence of new hemorrhage, mass, or acute | | infarction. The ventricles are normal in size and morphology. SOFT TISSUES: | | Frontal subgaleal lipoma is unchanged. SKULL AND SKULL BASE: No fractures or | | destructive lesions. Mastoids and middle ears are unremarkable. 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 PARANASAL SINUSES: Visualized portions are unremarkable. | | IMPRESSION: Increasing fluid collection underlying the right-sided | | cranioplasty. I have personally reviewed the images and, if necessary, edited the | | report. I agree with the report as now presented. Final signature: Navjot Orta MD | | 09/22/2017 8:40 AM Preliminary: Gurpreet Taylor MD 09/22/2017 7:42 AM | + + + + | Procedure Note [...] MD 09/22/2017 7:42 AM | + + CBC (HEMOGRAM) ONLY (09/21/2017 5:50 AM) + + + + | Component | Value | Ref Range | + + + + | WHITE CELL COUNT | 10.37 | 3.50 - 10.80 K/cu mm | + + + + | RED CELL COUNT | 4.07 (L) | 4.50 - 6.00 M/cu mm | + + + + | HEMOGLOBIN | 11.9 (L) | 13.5 - 17.5 g/dL | + + + + | HEMATOCRIT | 37.5 (L) | 41.0 - 53.0 % | + + + + | MCV | 92.1 | 80.0 - 100.0 fL | + + + + | MCHC | 31.7 (L) | 32.0 - 36.0 g/dL | + + + + | RDW SD | 61.2 (H) | 35.1 - 46.3 fL | + + + + | PLATELET COUNT | 290 | 150 - 400 K/cu mm | + + + + | MPV | 8.9 (L) | 9.7 - 12.3 fL | + + + + | NRBC% | 0.0 | 0.0 - 0.3 % | + + + + | NRBC# | 0.00 | 0.00 - 0.02 K/cu mm | + + + + + + + | Specimen | Performing Laboratory | + + + | Blood | [facility], [address]ORE [address] [facility] [address] | | | [place] [address] | + + + + + | Narrative | + + | New reference ranges for MCV, MCHC, PLT, IG% and IG# effective 09/05/2017 | + + MAGNESIUM, PLASMA (09/21/2017 5:50 AM) + +-------+ + | Component | Value | Ref Range | + +-------+ + | MAGNESIUM,PLASMA | 2.1 | 1.6 - 2.6 mg/dL | + +-------+ + + + + | Specimen | Performing Laboratory | + + + | Blood | [facility], [address] [facility] | | | [place] [address] | + + + + + | Narrative | + + | Reference range change effective 12/11/16. | + + CBC ONLY (09/21/2017 5:50 AM) + + + | Specimen | Performing Laboratory | + + + | Blood | | + + + + + | Narrative | + + | The following orders were created for panel order CBC ONLY. | | Procedure | | Abnormality Status | | --------- | | ------ CBC (HEMOGRAM) | | ONLY[[id number]] Abnormal Final | | result Please view results for these tests on the | | individual orders. | + + RENAL FUNCTION SET (NA,K,CL,CO2,BUN,CREAT,GLUC,CA,PHOS,ALB ) (09/21/2017 5:50 AM) + + + + | Component | Value | Ref Range | + + + + | GLUCOSE, PLASMA | 140 (H) | 70 - 99 mg/dL | | (LAB) | | | + + + + | BUN, PLASMA (LAB) | 24 (H) | 6 - 20 mg/dL | + + + + | CREATININE PLASMA | 0.43 (L) | 0.70 - 1.30 mg/dL | | (LAB) | | | + + + + | EGFR - | >60 | >60 mL/min | | GABONESE | | | + + + + | EGFR NON | >60 | >60 mL/min | | -GABONESE | | | + + + + | SODIUM, PLASMA (LAB) | 139 | 136 - 145 mmol/L | + + + + | POTASSIUM, PLASMA | 3.8 | 3.4 - 5.0 mmol/L | | (LAB) | | | + + + + | CHLORIDE, PLASMA | 106 | 97 - 108 mmol/L | | (LAB) | | | + + + + | TOTAL CO2, PLASMA | 25 | 21 - 32 mmol/L | | (LAB) | | | + + + + | CALCIUM, PLASMA | 8.3 (L) | 8.6 - 10.2 mg/dL | | (LAB) | | | + + + + | CALCIUM(ALB | 9.1 | 8.6 - 10.2 mg/dL | | CORRECTED) | | | + + + + | ALBUMIN, PLASMA | 3.0 (L) | 3.5 - 4.7 g/dL | | (LAB) | | | + + + + | PHOSPHORUS, PLASMA | 3.9 | 2.4 - 4.7 mg/dL | | (LAB) | | | + + + + | POTASSIUM CMNT | No Hemo | | + + + + | ANION GAP | 8 | 4 - 11 mmol/L | + + + + | ANION GAP(ALB | 10 | 4 - 11 mmol/L | | CORRECTED) | | | + + + + + + + | Specimen | Performing Laboratory | + + + | Blood | [facility], CORE [address] [place] [address] | | | [place] [address] | + + + + + | Narrative | + + | GFR is estimated using the MDRD equation recommended by the National Kidney Disease | | Education Program. Estimated GFR Interpretive Information: <60 mL/min/1.73 sq | | m Chronic Kidney Disease <15 mL/min/1.73 sq | | m Kidney Failure Estimated GFR greater that 60 mL/min/1.73 | | sq m is of limited clinical value. The MDRD equation is not valid in the following | | situations: - Patients under 18 years of age - Severe malnutrition or obesity - | | Vegetarian diet - Rapidly changing kidney function - Amputees, paraplegics, or other | | muscle-wasting diseses | + + X-RAY ABD LTD FEEDING TUBE EVAL (09/20/2017 7:23 PM) + + + | Specimen | Performing Laboratory | + + + | | [facility] VOICE RECOGNITION 2 | + + + + + | Narrative | + + | EXAM: ABD LTD FEEDING TUBE EVAL INDICATION: DHT placement TECHNIQUE: | | Semi-upright portable view of the upper abdomen. Comparison: Same date. | | FINDINGS/IMPRESSION: Tip of esophagogastric tube is located in the mid body of | | the stomach pointing towards the pylorus... I have personally reviewed the images | | and, if necessary, edited the report. I agree with the report as now presented. | | Final signature: Mega Yeager MD 09/20/2017 7:48 PM Preliminary: Mega Richardson | | MD Toy | + + + + | Procedure Note [...] |Preliminary: Mega Yeager MD | + + X-RAY ABD LTD FEEDING TUBE EVAL (09/20/2017 5:19 PM) + + + | Specimen | Performing Laboratory | + + + | | [facility] VOICE RECOGNITION 2 | + + + + + | Narrative | + + | EXAM: ABD LTD FEEDING TUBE EVAL INDICATION: DHT placement TECHNIQUE: | | Semi-upright portable view of the upper abdomen. Comparison: Same date at 1245. | | FINDINGS/IMPRESSION: Tip of esophagogastric tube is located in the fundus of the | | stomach, coiled with tip terminating and in the direction of the GE junction. | | Nonobstructive bowel gas pattern.. I have personally reviewed the images and, if | | necessary, edited the report. I agree with the report as now presented. Final | | signature: Mega Yeager MD 09/20/2017 6:24 PM Preliminary: Mega Richardson | | MD Toy | + + + + | Procedure Note | + + | 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, [employer] - 09/20/2017 6:25 PM [...] fundus of the stomach, coiled with tip judyi nating and in the direction of the GE junction. Nonobstructive bowel gas pattern.. | | | | | |I have personally reviewed the images and, if necessary, edited the report. I agree with e report as now presented. | | | |Final signature: Mega Yeager MD 09/20/2017 6:24 PM | |Preliminary: Mega Yeager MD | + + X-RAY ABD LTD FEEDING TUBE EVAL (09/20/2017 5:19 PM) + + + | Specimen | Performing Laboratory | + + + | | [facility] VOICE RECOGNITION 2 | + + + + + | Narrative | + + | EXAM: ABD LTD FEEDING TUBE EVAL INDICATION: DHT placement TECHNIQUE: | | Semi-upright portable view of the upper abdomen. Comparison: Same date at 12:45 PM. | | FINDINGS/IMPRESSION: Tip of esophagogastric tube is located in the fundus of | | the stomach, coiled with tip terminating and in the direction of the GE junction. | | Nonobstructive bowel gas pattern.. I have personally reviewed the images and, if | | necessary, edited the report. I agree with the report as now presented. Final | | signature: Mega Yeager MD 09/20/2017 6:25 PM Preliminary: Mega Richardson | | MD Toy | + + + + | Procedure Note [...] |Preliminary: Mega Yeager MD | + + X-RAY ABD LTD FEEDING TUBE EVAL (09/20/2017 1:02 PM) + + + | Specimen | Performing Laboratory | + + + | | [facility] VOICE RECOGNITION 2 | + + + + + | Narrative | + + | EXAM: ABD LTD FEEDING TUBE EVAL INDICATION: confirm Dobbhoff placement | | TECHNIQUE: Semi-upright portable view of the upper abdomen. Comparison: Abdomen | | radiograph 09/15/2017. FINDINGS/IMPRESSION: Tip of Dobbhoff tube is located in | | the distal stomach at the gastric antrum. Left-sided PICC line with tip at the | | cavoatrial junction. Bilateral rib fractures again noted. I have personally reviewed | | the images and, if necessary, edited the report. I agree with the report as now | | presented. Final signature: Mason Sanchez MD 09/20/2017 5:16 PM Preliminary: | | Em Cates MD 09/20/2017 1:12 PM | + + + + | Procedure Note | + + | 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, [employer] - 09/20/2017 5:17 PM [...] the report as now presented. Final signature: Mason Sanchez | | 09/20/2017 5:16 PM Preliminary: [...] now presented. | | | |Final signature: Mason Sanchez MD 09/20/2017 5:16 PM | |Preliminary: Em Cates MD 09/20/2017 1:12 PM | + + 12 LEAD ECG (09/20/2017 11:59 AM) + + + + | Component | Value | Ref Range | + + + + | VENTRICULAR RATE | 78 | bpm | + + + + | ATRIAL RATE | 78 | ms | + + + + | P-R INTERVAL | 110 | ms | + + + + | P AXIS | 14 | deg | + + + + | QRS DURATION | 124 | ms | + + + + | QT | 389 | ms | + + + + | QTCB | 444 | ms | + + + + | R AXIS | 86 | deg | + + + + | T AXIS | 27 | deg | + + + + | ECG IMPRESSION | Sinus rhythm | | + + + + | ECG IMPRESSION | Right bundle branch block | | + + + + | ECG IMPRESSION | ST elevation, consider lateral injury- | | | | ABNORMAL ECG - | | + + + + | ECG IMPRESSION | Electronically signed by: JULIO VIZCAINO | | | | 09-20-2017 18:31:42 | | + + + + + + + | Specimen | Performing Laboratory | + + + | | [facility] [address] [place] [address] | | | [place] [address] | + + + CBC (HEMOGRAM) ONLY (09/20/2017 5:32 AM) + + + + | Component | Value | Ref Range | + + + + | WHITE CELL COUNT | 9.56 | 3.50 - 10.80 K/cu mm | + + + + | RED CELL COUNT | 4.24 (L) | 4.50 - 6.00 M/cu mm | + + + + | HEMOGLOBIN | 12.5 (L) | 13.5 - 17.5 g/dL | + + + + | HEMATOCRIT | 39.1 (L) | 41.0 - 53.0 % | + + + + | MCV | 92.2 | 80.0 - 100.0 fL | + + + + | MCHC | 32.0 | 32.0 - 36.0 g/dL | + + + + | RDW SD | 61.7 (H) | 35.1 - 46.3 fL | + + + + | PLATELET COUNT | 305 | 150 - 400 K/cu mm | + + + + | MPV | 8.6 (L) | 9.7 - 12.3 fL | + + + + | NRBC% | 0.0 | 0.0 - 0.3 % | + + + + | NRBC# | 0.00 | 0.00 - 0.02 K/cu mm | + + + + + + + | Specimen | Performing Laboratory | + + + | Blood | [facility], CORE [address] | | | [place] [address] | + + + + + | Narrative | + + | New reference ranges for MCV, MCHC, PLT, IG% and IG# effective 09/05/2017 | + + MAGNESIUM, PLASMA (09/20/2017 5:32 AM) + +-------+ + | Component | Value | Ref Range | + +-------+ + | MAGNESIUM,PLASMA | 2.2 | 1.6 - 2.6 mg/dL | + +-------+ + + + + | Specimen | Performing Laboratory | + + + | Blood | [facility], CORE [address] [facility] | | | [place] [address] | + + + + + | Narrative | + + | Reference range change effective 12/11/16. | + + CBC ONLY (09/20/2017 5:32 AM) + + + | Specimen | Performing Laboratory | + + + | Blood | | + + + + + | Narrative | + + | The following orders were created for panel order CBC ONLY. | | Procedure | | Abnormality Status | | --------- | | ------ CBC (HEMOGRAM) | | ONLY[[id number]] Abnormal Final | | result Please view results for these tests on the | | individual orders. | + + RENAL FUNCTION SET (NA,K,CL,CO2,BUN,CREAT,GLUC,CA,PHOS,ALB ) (09/20/2017 5:32 AM) + + + + | Component | Value | Ref Range | + + + + | GLUCOSE, PLASMA | 100 (H) | 70 - 99 mg/dL | | (LAB) | | | + + + + | BUN, PLASMA (LAB) | 18 | 6 - 20 mg/dL | + + + + | CREATININE PLASMA | 0.43 (L) | 0.70 - 1.30 mg/dL | | (LAB) | | | + + + + | EGFR - | >60 | >60 mL/min | | GABONESE | | | + + + + | EGFR NON | >60 | >60 mL/min | | -GABONESE | | | + + + + | SODIUM, PLASMA (LAB) | 139 | 136 - 145 mmol/L | + + + + | POTASSIUM, PLASMA | 4.2 | 3.4 - 5.0 mmol/L | | (LAB) | | | + + + + | CHLORIDE, PLASMA | 106 | 97 - 108 mmol/L | | (LAB) | | | + + + + | TOTAL CO2, PLASMA | 27 | 21 - 32 mmol/L | | (LAB) | | | + + + + | CALCIUM, PLASMA | 8.5 (L) | 8.6 - 10.2 mg/dL | | (LAB) | | | + + + + | CALCIUM(ALB | 9.3 | 8.6 - 10.2 mg/dL | | CORRECTED) | | | + + + + | ALBUMIN, PLASMA | 3.0 (L) | 3.5 - 4.7 g/dL | | (LAB) | | | + + + + | PHOSPHORUS, PLASMA | 3.5 | 2.4 - 4.7 mg/dL | | (LAB) | | | + + + + | POTASSIUM CMNT | No Hemo | | + + + + | ANION GAP | 6 | 4 - 11 mmol/L | + + + + | ANION GAP(ALB | 8 | 4 - 11 mmol/L | | CORRECTED) | | | + + + + + + + | Specimen | Performing Laboratory | + + + | Blood | [facility] [address] | | | [place] [address] | + + + + + | Narrative | + + | GFR is estimated using the MDRD equation recommended by the National Kidney Disease | | Education Program. Estimated GFR Interpretive Information: <60 mL/min/1.73 sq | | m Chronic Kidney Disease <15 mL/min/1.73 sq | | m Kidney Failure Estimated GFR greater that 60 mL/min/1.73 | | sq m is of limited clinical value. The MDRD equation is not valid in the following | | situations: - Patients under 18 years of age - Severe malnutrition or obesity - | | Vegetarian diet - Rapidly changing kidney function - Amputees, paraplegics, or other | | muscle-wasting diseses | + + CBC (HEMOGRAM) ONLY (09/19/2017 4:32 AM) + + + + | Component | Value | Ref Range | + + + + | WHITE CELL COUNT | 10.91 (H) | 3.50 - 10.80 K/cu mm | + + + + | RED CELL COUNT | 4.05 (L) | 4.50 - 6.00 M/cu mm | + + + + | HEMOGLOBIN | 11.8 (L) | 13.5 - 17.5 g/dL | + + + + | HEMATOCRIT | 37.0 (L) | 41.0 - 53.0 % | + + + + | MCV | 91.4 | 80.0 - 100.0 fL | + + + + | MCHC | 31.9 (L) | 32.0 - 36.0 g/dL | + + + + | RDW SD | 61.4 (H) | 35.1 - 46.3 fL | + + + + | PLATELET COUNT | 340 | 150 - 400 K/cu mm | + + + + | MPV | 8.6 (L) | 9.7 - 12.3 fL | + + + + | NRBC% | 0.0 | 0.0 - 0.3 % | + + + + | NRBC# | 0.00 | 0.00 - 0.02 K/cu mm | + + + + + + + | Specimen | Performing Laboratory | + + + | Blood | [facility], [address] [facility] | | | [place] [id number] | + + + + + | Narrative | + + | New reference ranges for MCV, MCHC, PLT, IG% and IG# effective 09/05/2017 | + + MAGNESIUM, PLASMA (09/19/2017 4:32 AM) + +-------+ + | Component | Value | Ref Range | + +-------+ + | MAGNESIUM,PLASMA | 2.2 | 1.6 - 2.6 mg/dL | + +-------+ + + + + | Specimen | Performing Laboratory | + + + | Blood | [facility], [address] [place] [address] | | | [place] [id number] | + + + + + | Narrative | + + | Reference range change effective 12/11/16. | + + CBC ONLY (09/19/2017 4:32 AM) + + + | Specimen | Performing Laboratory | + + + | Blood | | + + + + + | Narrative | + + | The following orders were created for panel order CBC ONLY. | | Procedure | | Abnormality Status | | --------- | | ------ CBC (HEMOGRAM) | | ONLY[[id number]] Abnormal Final | | result Please view results for these tests on the | | individual orders. | + + RENAL FUNCTION SET (NA,K,CL,CO2,BUN,CREAT,GLUC,CA,PHOS,ALB ) (09/19/2017 4:32 AM) + + + + | Component | Value | Ref Range | + + + + | GLUCOSE, PLASMA | 118 (H) | 70 - 99 mg/dL | | (LAB) | | | + + + + | BUN, PLASMA (LAB) | 15 | 6 - 20 mg/dL | + + + + | CREATININE PLASMA | 0.44 (L) | 0.70 - 1.30 mg/dL | | (LAB) | | | + + + + | EGFR - | >60 | >60 mL/min | | GABONESE | | | + + + + | EGFR NON | >60 | >60 mL/min | | -GABONESE | | | + + + + | SODIUM, PLASMA (LAB) | 138 | 136 - 145 mmol/L | + + + + | POTASSIUM, PLASMA | 3.9 | 3.4 - 5.0 mmol/L | | (LAB) | | | + + + + | CHLORIDE, PLASMA | 104 | 97 - 108 mmol/L | | (LAB) | | | + + + + | TOTAL CO2, PLASMA | 26 | 21 - 32 mmol/L | | (LAB) | | | + + + + | CALCIUM, PLASMA | 8.1 (L) | 8.6 - 10.2 mg/dL | | (LAB) | | | + + + + | CALCIUM(ALB | 9.0 | 8.6 - 10.2 mg/dL | | CORRECTED) | | | + + + + | ALBUMIN, PLASMA | 2.9 (L) | 3.5 - 4.7 g/dL | | (LAB) | | | + + + + | PHOSPHORUS, PLASMA | 3.5 | 2.4 - 4.7 mg/dL | | (LAB) | | | + + + + | POTASSIUM CMNT | No Hemo | | + + + + | ANION GAP | 8 | 4 - 11 mmol/L | + + + + | ANION GAP(ALB | 10 | 4 - 11 mmol/L | | CORRECTED) | | | + + + + + + + | Specimen | Performing Laboratory | + + + | Blood | [facility], [address] [place] [address] | | | [place] [address] | + + + + + | Narrative | + + | GFR is estimated using the MDRD equation recommended by the National Kidney Disease | | Education Program. Estimated GFR Interpretive Information: <60 mL/min/1.73 sq | | m Chronic Kidney Disease <15 mL/min/1.73 sq | | m Kidney Failure Estimated GFR greater that 60 mL/min/1.73 | | sq m is of limited clinical value. The MDRD equation is not valid in the following | | situations: - Patients under 18 years of age - Severe malnutrition or obesity - | | Vegetarian diet - Rapidly changing kidney function - Amputees, paraplegics, or other | | muscle-wasting diseses | + + CBC (HEMOGRAM) ONLY (09/18/2017 5:40 AM) + + + + | Component | Value | Ref Range | + + + + | WHITE CELL COUNT | 11.09 (H) | 3.50 - 10.80 K/cu mm | + + + + | RED CELL COUNT | 4.08 (L) | 4.50 - 6.00 M/cu mm | + + + + | HEMOGLOBIN | 11.8 (L) | 13.5 - 17.5 g/dL | + + + + | HEMATOCRIT | 37.4 (L) | 41.0 - 53.0 % | + + + + | MCV | 91.7 | 80.0 - 100.0 fL | + + + + | MCHC | 31.6 (L) | 32.0 - 36.0 g/dL | + + + + | RDW SD | 61.3 (H) | 35.1 - 46.3 fL | + + + + | PLATELET COUNT | 397 | 150 - 400 K/cu mm | + + + + | MPV | 8.5 (L) | 9.7 - 12.3 fL | + + + + | NRBC% | 0.0 | 0.0 - 0.3 % | + + + + | NRBC# | 0.00 | 0.00 - 0.02 K/cu mm | + + + + + + + | Specimen | Performing Laboratory | + + + | Blood | [facility], [address] [facility] | | | [place] [address] | + + + + + | Narrative | + + | New reference ranges for MCV, MCHC, PLT, IG% and IG# effective 09/05/2017 | + + MAGNESIUM, PLASMA (09/18/2017 5:40 AM) + +-------+ + | Component | Value | Ref Range | + +-------+ + | MAGNESIUM,PLASMA | 2.3 | 1.6 - 2.6 mg/dL | + +-------+ + + + + | Specimen | Performing Laboratory | + + + | Blood | [facility], [address] [facility] | | | [place] [address] | + + + + + | Narrative | + + | Reference range change effective 12/11/16. | + + CBC ONLY (09/18/2017 5:40 AM) + + + | Specimen | Performing Laboratory | + + + | Blood | | + + + + + | Narrative | + + | The following orders were created for panel order CBC ONLY. | | Procedure | | Abnormality Status | | --------- | | ------ CBC (HEMOGRAM) | | ONLY[[id number]] Abnormal Final | | result Please view results for these tests on the | | individual orders. | + + RENAL FUNCTION SET (NA,K,CL,CO2,BUN,CREAT,GLUC,CA,PHOS,ALB ) (09/18/2017 5:40 AM) + + + + | Component | Value | Ref Range | + + + + | GLUCOSE, PLASMA | 115 (H) | 70 - 99 mg/dL | | (LAB) | | | + + + + | BUN, PLASMA (LAB) | 13 | 6 - 20 mg/dL | + + + + | CREATININE PLASMA | 0.46 (L) | 0.70 - 1.30 mg/dL | | (LAB) | | | + + + + | EGFR - | >60 | >60 mL/min | | GABONESE | | | + + + + | EGFR NON | >60 | >60 mL/min | | -GABONESE | | | + + + + | SODIUM, PLASMA (LAB) | 138 | 136 - 145 mmol/L | + + + + | POTASSIUM, PLASMA | 3.9 | 3.4 - 5.0 mmol/L | | (LAB) | | | + + + + | CHLORIDE, PLASMA | 106 | 97 - 108 mmol/L | | (LAB) | | | + + + + | TOTAL CO2, PLASMA | 27 | 21 - 32 mmol/L | | (LAB) | | | + + + + | CALCIUM, PLASMA | 8.1 (L) | 8.6 - 10.2 mg/dL | | (LAB) | | | + + + + | CALCIUM(ALB | 9.1 | 8.6 - 10.2 mg/dL | | CORRECTED) | | | + + + + | ALBUMIN, PLASMA | 2.8 (L) | 3.5 - 4.7 g/dL | | (LAB) | | | + + + + | PHOSPHORUS, PLASMA | 3.1 | 2.4 - 4.7 mg/dL | | (LAB) | | | + + + + | POTASSIUM CMNT | No Hemo | | + + + + | ANION GAP | 5 | 4 - 11 mmol/L | + + + + | ANION GAP(ALB | 8 | 4 - 11 mmol/L | | CORRECTED) | | | + + + + + + + | Specimen | Performing Laboratory | + + + | Blood | [facility], [address] [facility] | | | [place] [address] | + + + + + | Narrative | + + | GFR is estimated using the MDRD equation recommended by the National Kidney Disease | | Education Program. Estimated GFR Interpretive Information: <60 mL/min/1.73 sq | | m Chronic Kidney Disease <15 mL/min/1.73 sq | | m Kidney Failure Estimated GFR greater that 60 mL/min/1.73 | | sq m is of limited clinical value. The MDRD equation is not valid in the following | | situations: - Patients under 18 years of age - Severe malnutrition or obesity - | | Vegetarian diet - Rapidly changing kidney function - Amputees, paraplegics, or other | | muscle-wasting diseses | + + VASC LAB VENOUS DUPLEX LOWER EXTREMITY BILAT COMP (09/17/2017 10:00 AM) + + + | Specimen | Performing Laboratory | + + + | | [facility] US | + + + + + | Narrative | + + | Bilateral: The duplex scanner was used to examine the deep and superficial veins of | | the right and left lower extremities. The veins are patent bilaterally with normal | | flow and responses to augmentation and compression maneuvers and no thrombus is noted. | | Conclusions: A normal venous examination of the bilateral lower extremities. No | | venous thrombosis was detected. I have personally reviewed the images and, | | if necessary, edited the report. I agree with the report as now presented. | + + + + | Procedure Note | + + | 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, Kostas Casper In Interface - 09/17/2017 11:53 AM PDT [...] report as now presented. | + + CBC (HEMOGRAM) ONLY (09/17/2017 6:46 AM) + + + + | Component | Value | Ref Range | + + + + | WHITE CELL COUNT | 10.18 | 3.50 - 10.80 K/cu mm | + + + + | RED CELL COUNT | 4.48 (L) | 4.50 - 6.00 M/cu mm | + + + + | HEMOGLOBIN | 13.0 (L) | 13.5 - 17.5 g/dL | + + + + | HEMATOCRIT | 41.8 | 41.0 - 53.0 % | + + + + | MCV | 93.3 | 80.0 - 100.0 fL | + + + + | MCHC | 31.1 (L) | 32.0 - 36.0 g/dL | + + + + | RDW SD | 61.9 (H) | 35.1 - 46.3 fL | + + + + | PLATELET COUNT | 373 | 150 - 400 K/cu mm | + + + + | MPV | 8.4 (L) | 9.7 - 12.3 fL | + + + + | NRBC% | 0.0 | 0.0 - 0.3 % | + + + + | NRBC# | 0.00 | 0.00 - 0.02 K/cu mm | + + + + + + + | Specimen | Performing Laboratory | + + + | Blood | [facility], [address] [facility] | | | [place] [address] | + + + + + | Narrative | + + | New reference ranges for MCV, MCHC, PLT, IG% and IG# effective 09/05/2017 | + + MAGNESIUM, PLASMA (09/17/2017 6:46 AM) + +-------+ + | Component | Value | Ref Range | + +-------+ + | MAGNESIUM,PLASMA | 2.4 | 1.6 - 2.6 mg/dL | + +-------+ + + + + | Specimen | Performing Laboratory | + + + | Blood | [facility], [address] [facility] | | | [place] [address] | + + + + + | Narrative | + + | Reference range change effective 12/11/16. | + + CBC ONLY (09/17/2017 6:46 AM) + + + | Specimen | Performing Laboratory | + + + | Blood | | + + + + + | Narrative | + + | The following orders were created for panel order CBC ONLY. | | Procedure | | Abnormality Status | | --------- | | ------ CBC (HEMOGRAM) | | ONLY[[id number]] Abnormal Final | | result Please view results for these tests on the | | individual orders. | + + RENAL FUNCTION SET (NA,K,CL,CO2,BUN,CREAT,GLUC,CA,PHOS,ALB ) (09/17/2017 6:46 AM) + + + + | Component | Value | Ref Range | + + + + | GLUCOSE, PLASMA | 118 (H) | 70 - 99 mg/dL | | (LAB) | | | + + + + | BUN, PLASMA (LAB) | 12 | 6 - 20 mg/dL | + + + + | CREATININE PLASMA | 0.48 (L) | 0.70 - 1.30 mg/dL | | (LAB) | | | + + + + | EGFR - | >60 | >60 mL/min | | GABONESE | | | + + + + | EGFR NON | >60 | >60 mL/min | | -GABONESE | | | + + + + | SODIUM, PLASMA (LAB) | 139 | 136 - 145 mmol/L | + + + + | POTASSIUM, PLASMA | 4.1 | 3.4 - 5.0 mmol/L | | (LAB) | | | + + + + | CHLORIDE, PLASMA | 109 (H) | 97 - 108 mmol/L | | (LAB) | | | + + + + | TOTAL CO2, PLASMA | 23 | 21 - 32 mmol/L | | (LAB) | | | + + + + | CALCIUM, PLASMA | 8.2 (L) | 8.6 - 10.2 mg/dL | | (LAB) | | | + + + + | CALCIUM(ALB | 9.2 | 8.6 - 10.2 mg/dL | | CORRECTED) | | | + + + + | ALBUMIN, PLASMA | 2.8 (L) | 3.5 - 4.7 g/dL | | (LAB) | | | + + + + | PHOSPHORUS, PLASMA | 3.5 | 2.4 - 4.7 mg/dL | | (LAB) | | | + + + + | POTASSIUM CMNT | No Hemo | | + + + + | ANION GAP | 7 | 4 - 11 mmol/L | + + + + | ANION GAP(ALB | 10 | 4 - 11 mmol/L | | CORRECTED) | | | + + + + + + + | Specimen | Performing Laboratory | + + + | Blood | [facility], [address] [facility] | | | [place] [address] | + + + + + | Narrative | + + | GFR is estimated using the MDRD equation recommended by the National Kidney Disease | | Education Program. Estimated GFR Interpretive Information: <60 mL/min/1.73 sq | | m Chronic Kidney Disease <15 mL/min/1.73 sq | | m Kidney Failure Estimated GFR greater that 60 mL/min/1.73 | | sq m is of limited clinical value. The MDRD equation is not valid in the following | | situations: - Patients under 18 years of age - Severe malnutrition or obesity - | | Vegetarian diet - Rapidly changing kidney function - Amputees, paraplegics, or other | | muscle-wasting diseses | + + X-RAY PORTABLE CHEST PICC LINE CHECK (09/16/2017 1:11 PM) + + + | Specimen | Performing Laboratory | + + + | | [facility] VOICE RECOGNITION | + + + + + | Narrative | + + | EXAM: UT CHEST PICC LINE CHECK HISTORY: PICC placement COMPARISON: Earlier | | today FINDINGS: Left upper extremity PICC tip now projects in the right atrium, | | approximately 1 cm below the cavoatrial junction. Feeding tube extends below | | diaphragm. Minimal bibasilar atelectasis, otherwise clear lungs. There is no | | pneumothorax. No pulmonary edema. IMPRESSION: Left upper extremity PICC tip | | in the right atrium, approximately 1 cm below the cavoatrial junction. Minimal | | bibasilar atelectasis, otherwise clear lungs. I have personally reviewed the | | images and, if necessary, edited the report. I agree with the report as now | | presented. | + + + + | Procedure Note | + + | 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, Radiant Res In Interface - 09/16/2017 1:34 PM PDT EXAM: UT CHEST | | PICC LINE CHECK HISTORY: [...] report as now presented. | + + X-RAY PORTABLE CHEST PICC LINE CHECK (09/16/2017 11:06 AM) + + + | Specimen | Performing Laboratory | + + + | | [facility] VOICE RECOGNITION | + + + + + | Narrative | + + | EXAM: UT CHEST PICC LINE CHECK HISTORY: Evaluate PICC positioning. COMPARISON: | | Yesterday FINDINGS: The left upper extremity PICC is abnormally positioned and | | extends cephalad into the right brachiocephalic or potentially extended into the azygos | | vein.. Cervical collar and weighted tip feeding tube are unchanged. Skin fernandez noted | | over the central upper abdomen. The cardiomediastinal contour is normal. Persistent | | mild patchy perihilar consolidative opacities and unchanged retrocardiac atelectasis. | | There is no pleural effusion or pneumothorax. There is no pulmonary edema. The bones are | | intact. IMPRESSION: Left upper extremity PICC now extends cephalad into the | | right brachiocephalic vein or in the azygos vein. Otherwise stable exam. These | | results were discussed with the patient's nurse, Adrianna, at the time of dictation. | | I have personally reviewed the images and, if necessary, edited the report. I | | agree with the report as now presented. | + + + + | Procedure Note | + + | 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, [employer] In Interface - 09/16/2017 11:41 AM PDT EXAM: UT CHEST | | PICC LINE CHECK HISTORY: [...] report as now presented. | + + CBC (HEMOGRAM) ONLY (09/16/2017 5:32 AM) + + + + | Component | Value | Ref Range | + + + + | WHITE CELL COUNT | 10.91 (H) | 3.50 - 10.80 K/cu mm | + + + + | RED CELL COUNT | 4.11 (L) | 4.50 - 6.00 M/cu mm | + + + + | HEMOGLOBIN | 12.0 (L) | 13.5 - 17.5 g/dL | + + + + | HEMATOCRIT | 37.4 (L) | 41.0 - 53.0 % | + + + + | MCV | 91.0 | 80.0 - 100.0 fL | + + + + | MCHC | 32.1 | 32.0 - 36.0 g/dL | + + + + | RDW SD | 57.8 (H) | 35.1 - 46.3 fL | + + + + | PLATELET COUNT | 435 (H) | 150 - 400 K/cu mm | + + + + | MPV | 8.5 (L) | 9.7 - 12.3 fL | + + + + | NRBC% | 0.0 | 0.0 - 0.3 % | + + + + | NRBC# | 0.00 | 0.00 - 0.02 K/cu mm | + + + + + + + | Specimen | Performing Laboratory | + + + | Blood | [facility], [address] [facility] | | | [place] [address] | + + + + + | Narrative | + + | New reference ranges for MCV, MCHC, PLT, IG% and IG# effective 09/05/2017 | + + MAGNESIUM, PLASMA (09/16/2017 5:32 AM) + +-------+ + | Component | Value | Ref Range | + +-------+ + | MAGNESIUM,PLASMA | 2.3 | 1.6 - 2.6 mg/dL | + +-------+ + + + + | Specimen | Performing Laboratory | + + + | Blood | [facility], [address] [facility] | | | [place] [address] | + + + + + | Narrative | + + | Reference range change effective 12/11/16. | + + CBC ONLY (09/16/2017 5:32 AM) + + + | Specimen | Performing Laboratory | + + + | Blood | | + + + + + | Narrative | + + | The following orders were created for panel order CBC ONLY. | | Procedure | | Abnormality Status | | --------- | | ------ CBC (HEMOGRAM) | | ONLY[[id number]] Abnormal Final | | result Please view results for these tests on the | | individual orders. | + + RENAL FUNCTION SET (NA,K,CL,CO2,BUN,CREAT,GLUC,CA,PHOS,ALB ) (09/16/2017 5:32 AM) + + + + | Component | Value | Ref Range | + + + + | GLUCOSE, PLASMA | 124 (H) | 70 - 99 mg/dL | | (LAB) | | | + + + + | BUN, PLASMA (LAB) | 11 | 6 - 20 mg/dL | + + + + | CREATININE PLASMA | 0.43 (L) | 0.70 - 1.30 mg/dL | | (LAB) | | | + + + + | EGFR - | >60 | >60 mL/min | | GABONESE | | | + + + + | EGFR NON | >60 | >60 mL/min | | -GABONESE | | | + + + + | SODIUM, PLASMA (LAB) | 141 | 136 - 145 mmol/L | + + + + | POTASSIUM, PLASMA | 3.3 (L) | 3.4 - 5.0 mmol/L | | (LAB) | | | + + + + | CHLORIDE, PLASMA | 108 | 97 - 108 mmol/L | | (LAB) | | | + + + + | TOTAL CO2, PLASMA | 26 | 21 - 32 mmol/L | | (LAB) | | | + + + + | CALCIUM, PLASMA | 8.2 (L) | 8.6 - 10.2 mg/dL | | (LAB) | | | + + + + | CALCIUM(ALB | 9.2 | 8.6 - 10.2 mg/dL | | CORRECTED) | | | + + + + | ALBUMIN, PLASMA | 2.7 (L) | 3.5 - 4.7 g/dL | | (LAB) | | | + + + + | PHOSPHORUS, PLASMA | 2.7 | 2.4 - 4.7 mg/dL | | (LAB) | | | + + + + | POTASSIUM CMNT | No Hemo | | + + + + | ANION GAP | 7 | 4 - 11 mmol/L | + + + + | ANION GAP(ALB | 10 | 4 - 11 mmol/L | | CORRECTED) | | | + + + + + + + | Specimen | Performing Laboratory | + + + | Blood | [facility], [address] [facility] | | | [place] [address] | + + + + + | Narrative | + + | GFR is estimated using the MDRD equation recommended by the National Kidney Disease | | Education Program. Estimated GFR Interpretive Information: <60 mL/min/1.73 sq | | m Chronic Kidney Disease <15 mL/min/1.73 sq | | m Kidney Failure Estimated GFR greater that 60 mL/min/1.73 | | sq m is of limited clinical value. The MDRD equation is not valid in the following | | situations: - Patients under 18 years of age - Severe malnutrition or obesity - | | Vegetarian diet - Rapidly changing kidney function - Amputees, paraplegics, or other | | muscle-wasting diseses | + + X-RAY PORTABLE CHEST 1 VIEW (09/15/2017 3:28 PM) + + + | Specimen | Performing Laboratory | + + + | | [facility] VOICE RECOGNITION | + + + + + | Narrative | + + | EXAM: UT CHEST 1 VIEW HISTORY: COMPARISON: None. FINDINGS: The | | left upper extremity PICC has been repositioned, now terminating 5 cm above the superior | | cavoatrial junction. The enteric tube is unchanged. The mediastinum is unchanged. | | There is unchanged scattered peribronchovascular nodular groundglass opacification. Mild | | retrocardiac atelectasis persists. There is no definite pleural effusion. There is no | | pneumothorax. IMPRESSION: Left upper extremity PICC terminates 5 cm above the | | superior cavoatrial junction in the upper SVC. Persistent mild retrocardiac | | atelectasis and scattered nodular groundglass likely represent retained secretions and | | inflammatory change. I have personally reviewed the images and, if necessary, | | edited the report. I agree with the report as now presented. | + + + + | Procedure Note | + + | 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, [employer] In Interface - 09/15/2017 6:45 PM PDT EXAM: UT CHEST 1 | | VIEW HISTORY: COMPARISON: [...] report as now presented. | + + X-RAY PORTABLE CHEST PICC LINE CHECK (09/15/2017 2:33 PM) + + + | Specimen | Performing Laboratory | + + + | | [facility] VOICE RECOGNITION | + + + + + | Narrative | + + | EXAM: UT CHEST PICC LINE CHECK HISTORY: PICC COMPARISON: 09/10/17 FINDINGS: | | A left upper extremity PICC has been placed, which terminates in the azygos arch. | | The enteric tube is unchanged. The mediastinum is unchanged. Lung volumes have | | improved. There is unchanged scattered peribronchovascular nodular groundglass | | opacification. Retrocardiac atelectasis has improved. There is no definite pleural | | effusion. There is no pneumothorax. IMPRESSION: Left upper extremity PICC | | terminates in the azygos arch. Improved lung volumes. Scattered nodular groundglass | | is favored to represent persistent retained secretions and inflammatory change. I | | have personally reviewed the images and, if necessary, edited the report. I agree | | with the report as now presented. | + + + + | Procedure Note | + + | 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, Radiant Res In Interface - 09/15/2017 6:43 PM PDT EXAM: UT CHEST | | PICC LINE CHECK HISTORY: [...] report as now presented. | + + PICC LINE (09/15/2017 2:15 PM) + + | Narrative | + + | Chris Stone RN 09/16/2017 3:42 PM PICC LINE Performed by: | | CHRIS STONE Authorized by: CHAZ MUNOZ PICC/Midline Insertion | | Procedure Note Indications:TPN Procedure location: Unit:13A Room: #12 Providers: | | Attending name: Attending physically present: No PICC Nurse name: Chris Kern | | Jarad RN,BSN,VAT Assisted by Declan dorantes RN,VAT Pre-Procedure Consent: | | written consent obtained Consent given by: Patient Patient identity confirmed per | | protocol: Yes Team Pause: Immediatly prior to the procedure a pause per protocol was | | called. A pause verifies correct patient, procedure, equipment, ict customer support officer and | | site/side marked as required. CLABSI Prevention Bundle: Skin | | preparation: Chloraprep Protective barrier: Cap, Mask, Hand scrub, Gown, | | Gloves and Full body drape. Cap and mask worn by assistive personnel.Sterile | | Ultrasound techniques (sterile gel, and sterile probe cover) used | | Dressing: Hemostatic agent applied Procedure Details | | Patient was placed in appropriate position The vascular anatomy was identified by | | Ultrasound Guidance.wire through the needle, introducer over the wire, then catheter | | through the introducer Tip was placed using TLS (Tip Locating System) and TPS (Tip | | Positioning System). . A non-tunneled PICC Double lumen 5 Fr was placed in the | | Left Arm area Basilic vein. Catheter lot number: [id number] with a length of 55 cm | | was selected and trimmed 13 to a remaining length of 42 cm All ports | | aspirated for blood and flushed with saline Procedure comments: Left Upper PICC is in | | th e Azygos. Pulled back and flushed well with Sterile Normal Saline. Blood return | | noted 09/16/2017 Pt left upper arm double lumen PICC is in the Azygos after patient | | vomits sometime today. CX Ray ordered and done.. TPN was stopped by RN. Adjusted | | PICC Line per radiology pulled backed 2 cm and flushed with 20 ml Normal saline each | | lumen. Chest X Ray requested again and PICC is out of the azygos. RN notified and re | | -started TPN. Power-injectable line: yes Attempts 1 attempt(s) were made | | Complications None PICC catheter tip location Chest radiograph ordered to verify | | placement and Line verified by radiograph Adjustments made after chest film obtained: | | None External measurement of catheter exposed: 5 cm. PICC catheter tip location: | | Cavo-Atrial Junction Radiologist confirmed tip position Estimated blood loss: <10mL | | | + + VAT: PICC INSERTION W/US (09/15/2017 1:13 PM) + + | Narrative | + + | See procedure note. | + + X-RAY ABDOMEN 1 VIEW (09/15/2017 6:07 AM) + + + | Specimen | Performing Laboratory | + + + | | [facility] VOICE RECOGNITION | + + + + + | Narrative | + + | EXAM: ABDOMEN 1 VIEW HISTORY: Ileus COMPARISON: 09/12/17 FINDINGS: The | | gastric tube has been removed. Enteric tube is in unchanged position. The bowel gas | | pattern is unremarkable. There is no evidence of pneumoperitoneum, although supine | | imaging limits evaluation. There is no pneumatosis or portal venous gas. IMPRESSION: | | Unremarkable bowel gas pattern. No evidence of ileus. I have personally | | reviewed the images and, if necessary, edited the report. I agree with the report as | | now presented. | + + + + | Procedure Note | + + | 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, [employer] Res In Interface - 09/15/2017 2:13 PM [...] report as now presented. | + + CBC (HEMOGRAM) ONLY (09/15/2017 6:02 AM) + + + + | Component | Value | Ref Range | + + + + | WHITE CELL COUNT | 10.85 (H) | 3.50 - 10.80 K/cu mm | + + + + | RED CELL COUNT | 3.97 (L) | 4.50 - 6.00 M/cu mm | + + + + | HEMOGLOBIN | 11.4 (L) | 13.5 - 17.5 g/dL | + + + + | HEMATOCRIT | 36.5 (L) | 41.0 - 53.0 % | + + + + | MCV | 91.9 | 80.0 - 100.0 fL | + + + + | MCHC | 31.2 (L) | 32.0 - 36.0 g/dL | + + + + | RDW SD | 57.7 (H) | 35.1 - 46.3 fL | + + + + | PLATELET COUNT | 494 (H) | 150 - 400 K/cu mm | + + + + | MPV | 8.3 (L) | 9.7 - 12.3 fL | + + + + | NRBC% | 0.0 | 0.0 - 0.3 % | + + + + | NRBC# | 0.00 | 0.00 - 0.02 K/cu mm | + + + + + + + | Specimen | Performing Laboratory | + + + | Blood | [facility], [address] [facility] [address] | | | [place] [address] | + + + + + | Narrative | + + | New reference ranges for MCV, MCHC, PLT, IG% and IG# effective 09/05/2017 | + + MAGNESIUM, PLASMA (09/15/2017 6:02 AM) + +-------+ + | Component | Value | Ref Range | + +-------+ + | MAGNESIUM,PLASMA | 2.1 | 1.6 - 2.6 mg/dL | + +-------+ + + + + | Specimen | Performing Laboratory | + + + | Blood | [facility], [address] [facility] | | | [place] [address] | + + + + + | Narrative | + + | Reference range change effective 12/11/16. | + + CBC ONLY (09/15/2017 6:02 AM) + + + | Specimen | Performing Laboratory | + + + | Blood | | + + + + + | Narrative | + + | The following orders were created for panel order CBC ONLY. | | Procedure | | Abnormality Status | | --------- | | ------ CBC (HEMOGRAM) | | ONLY[[id number]] Abnormal Final | | result Please view results for these tests on the | | individual orders. | + + RENAL FUNCTION SET (NA,K,CL,CO2,BUN,CREAT,GLUC,CA,PHOS,ALB ) (09/15/2017 6:02 AM) + + + + | Component | Value | Ref Range | + + + + | GLUCOSE, PLASMA | 93 | 70 - 99 mg/dL | | (LAB) | | | + + + + | BUN, PLASMA (LAB) | 8 | 6 - 20 mg/dL | + + + + | CREATININE PLASMA | 0.49 (L) | 0.70 - 1.30 mg/dL | | (LAB) | | | + + + + | EGFR - | >60 | >60 mL/min | | GABONESE | | | + + + + | EGFR NON | >60 | >60 mL/min | | -GABONESE | | | + + + + | SODIUM, PLASMA (LAB) | 144 | 136 - 145 mmol/L | + + + + | POTASSIUM, PLASMA | 3.3 (L) | 3.4 - 5.0 mmol/L | | (LAB) | | | + + + + | CHLORIDE, PLASMA | 112 (H) | 97 - 108 mmol/L | | (LAB) | | | + + + + | TOTAL CO2, PLASMA | 23 | 21 - 32 mmol/L | | (LAB) | | | + + + + | CALCIUM, PLASMA | 7.9 (L) | 8.6 - 10.2 mg/dL | | (LAB) | | | + + + + | CALCIUM(ALB | 9.0 | 8.6 - 10.2 mg/dL | | CORRECTED) | | | + + + + | ALBUMIN, PLASMA | 2.6 (L) | 3.5 - 4.7 g/dL | | (LAB) | | | + + + + | PHOSPHORUS, PLASMA | 3.0 | 2.4 - 4.7 mg/dL | | (LAB) | | | + + + + | POTASSIUM CMNT | No Hemo | | + + + + | ANION GAP | 9 | 4 - 11 mmol/L | + + + + | ANION GAP(ALB | 12 (H) | 4 - 11 mmol/L | | CORRECTED) | | | + + + + + + + | Specimen | Performing Laboratory | + + + | Blood | [facility], [address] [address] | | | [place] [address] | + + + + + | Narrative | + + | GFR is estimated using the MDRD equation recommended by the National Kidney Disease | | Education Program. Estimated GFR Interpretive Information: <60 mL/min/1.73 sq | | m Chronic Kidney Disease <15 mL/min/1.73 sq | | m Kidney Failure Estimated GFR greater that 60 mL/min/1.73 | | sq m is of limited clinical value. The MDRD equation is not valid in the following | | situations: - Patients under 18 years of age - Severe malnutrition or obesity - | | Vegetarian diet - Rapidly changing kidney function - Amputees, paraplegics, or other | | muscle-wasting diseses | + + X-RAY SPINE CERVICAL 2 VIEWS (09/14/2017 4:51 PM) + + + | Specimen | Performing Laboratory | + + + | | [facility] | + + + + + | Narrative | + + | EXAM: SPINE CERVICAL 2 VIEWS HISTORY: Cervical spine fractures COMPARISON: | | 08/31/17 FINDINGS: The upper portion of the enteric tube has expected course. | | The C6 spinous process fracture there is appreciable on the lateral view, C7 laminar | | fractures are radiographically occult. Cervical spinal alignment is normal. The disc | | spaces and facet joint spaces are maintained. The prevertebral and para-spinal soft | | tissues are unremarkable. The airway is clear. IMPRESSION: Normal alignment. | | Fractures are better evaluated on prior CT. I have personally reviewed the | | images and, if necessary, edited the report. I agree with the report as now | | presented. | + + + + | Procedure Note [...] report as now presented. | + + CBC (HEMOGRAM) ONLY (09/14/2017 5:22 AM) + + + + | Component | Value | Ref Range | + + + + | WHITE CELL COUNT | 10.78 | 3.50 - 10.80 K/cu mm | + + + + | RED CELL COUNT | 4.17 (L) | 4.50 - 6.00 M/cu mm | + + + + | HEMOGLOBIN | 12.0 (L) | 13.5 - 17.5 g/dL | + + + + | HEMATOCRIT | 38.7 (L) | 41.0 - 53.0 % | + + + + | MCV | 92.8 | 80.0 - 100.0 fL | + + + + | MCHC | 31.0 (L) | 32.0 - 36.0 g/dL | + + + + | RDW SD | 58.4 (H) | 35.1 - 46.3 fL | + + + + | PLATELET COUNT | 522 (H) | 150 - 400 K/cu mm | + + + + | MPV | 8.4 (L) | 9.7 - 12.3 fL | + + + + | NRBC% | 0.0 | 0.0 - 0.3 % | + + + + | NRBC# | 0.00 | 0.00 - 0.02 K/cu mm | + + + + + + + | Specimen | Performing Laboratory | + + + | Blood | [facility], [facility] [address] [facility] | | | [place] [address] | + + + + + | Narrative | + + | New reference ranges for MCV, MCHC, PLT, IG% and IG# effective 09/05/2017 | + + MAGNESIUM, PLASMA (09/14/2017 5:22 AM) + +-------+ + | Component | Value | Ref Range | + +-------+ + | MAGNESIUM,PLASMA | 2.1 | 1.6 - 2.6 mg/dL | + +-------+ + + + + | Specimen | Performing Laboratory | + + + | Blood | [facility], [address] [address] [facility] | | | [place], [place] [address] | + + + + + | Narrative | + + | Reference range change effective 12/11/16. | + + CBC ONLY (09/14/2017 5:22 AM) + + + | Specimen | Performing Laboratory | + + + | Blood | | + + + + + | Narrative | + + | The following orders were created for panel order CBC ONLY. | | Procedure | | Abnormality Status | | --------- | | ------ CBC (HEMOGRAM) | | ONLY[[id number]] Abnormal Final | | result Please view results for these tests on the | | individual orders. | + + RENAL FUNCTION SET (NA,K,CL,CO2,BUN,CREAT,GLUC,CA,PHOS,ALB ) (09/14/2017 5:22 AM) + + + + | Component | Value | Ref Range | + + + + | GLUCOSE, PLASMA | 99 | 70 - 99 mg/dL | | (LAB) | | | + + + + | BUN, PLASMA (LAB) | 10 | 6 - 20 mg/dL | + + + + | CREATININE PLASMA | 0.52 (L) | 0.70 - 1.30 mg/dL | | (LAB) | | | + + + + | EGFR - | >60 | >60 mL/min | | GABONESE | | | + + + + | EGFR NON | >60 | >60 mL/min | | -GABONESE | | | + + + + | SODIUM, PLASMA (LAB) | 144 | 136 - 145 mmol/L | + + + + | POTASSIUM, PLASMA | 3.3 (L) | 3.4 - 5.0 mmol/L | | (LAB) | | | + + + + | CHLORIDE, PLASMA | 110 (H) | 97 - 108 mmol/L | | (LAB) | | | + + + + | TOTAL CO2, PLASMA | 24 | 21 - 32 mmol/L | | (LAB) | | | + + + + | CALCIUM, PLASMA | 8.3 (L) | 8.6 - 10.2 mg/dL | | (LAB) | | | + + + + | CALCIUM(ALB | 9.4 | 8.6 - 10.2 mg/dL | | CORRECTED) | | | + + + + | ALBUMIN, PLASMA | 2.6 (L) | 3.5 - 4.7 g/dL | | (LAB) | | | + + + + | PHOSPHORUS, PLASMA | 3.2 | 2.4 - 4.7 mg/dL | | (LAB) | | | + + + + | POTASSIUM CMNT | No Hemo | | + + + + | ANION GAP | 10 | 4 - 11 mmol/L | + + + + | ANION GAP(ALB | 13 (H) | 4 - 11 mmol/L | | CORRECTED) | | | + + + + + + + | Specimen | Performing Laboratory | + + + | Blood | [facility], [address] [address] [facility] | | | [place] [address] | + + + + + | Narrative | + + | GFR is estimated using the MDRD equation recommended by the National Kidney Disease | | Education Program. Estimated GFR Interpretive Information: <60 mL/min/1.73 sq | | m Chronic Kidney Disease <15 mL/min/1.73 sq | | m Kidney Failure Estimated GFR greater that 60 mL/min/1.73 | | sq m is of limited clinical value. The MDRD equation is not valid in the following | | situations: - Patients under 18 years of age - Severe malnutrition or obesity - | | Vegetarian diet - Rapidly changing kidney function - Amputees, paraplegics, or other | | muscle-wasting diseses | + + CBC (HEMOGRAM) ONLY (09/13/2017 6:34 AM) + + + + | Component | Value | Ref Range | + + + + | WHITE CELL COUNT | 12.70 (H) | 3.50 - 10.80 K/cu mm | + + + + | RED CELL COUNT | 4.00 (L) | 4.50 - 6.00 M/cu mm | + + + + | HEMOGLOBIN | 11.5 (L) | 13.5 - 17.5 g/dL | + + + + | HEMATOCRIT | 37.5 (L) | 41.0 - 53.0 % | + + + + | MCV | 93.8 | 80.0 - 100.0 fL | + + + + | MCHC | 30.7 (L) | 32.0 - 36.0 g/dL | + + + + | RDW SD | 60.3 (H) | 35.1 - 46.3 fL | + + + + | PLATELET COUNT | 490 (H) | 150 - 400 K/cu mm | + + + + | MPV | 8.6 (L) | 9.7 - 12.3 fL | + + + + | NRBC% | 0.0 | 0.0 - 0.3 % | + + + + | NRBC# | 0.00 | 0.00 - 0.02 K/cu mm | + + + + + + + | Specimen | Performing Laboratory | + + + | Blood | [facility], [address] [address] [facility] | | | [place] [address] | + + + + + | Narrative | + + | New reference ranges for MCV, MCHC, PLT, IG% and IG# effective 09/05/2017 | + + MAGNESIUM, PLASMA (09/13/2017 6:34 AM) + +-------+ + | Component | Value | Ref Range | + +-------+ + | MAGNESIUM,PLASMA | 2.3 | 1.6 - 2.6 mg/dL | + +-------+ + + + + | Specimen | Performing Laboratory | + + + | Blood | [facility], [facility] [address] | | | [place] [address] | + + + + + | Narrative | + + | Reference range change effective 12/11/16. | + + CBC ONLY (09/13/2017 6:34 AM) + + + | Specimen | Performing Laboratory | + + + | Blood | | + + + + + | Narrative | + + | The following orders were created for panel order CBC ONLY. | | Procedure | | Abnormality Status | | --------- | | ------ CBC (HEMOGRAM) | | ONLY[[id number]] Abnormal Final | | result Please view results for these tests on the | | individual orders. | + + RENAL FUNCTION SET (NA,K,CL,CO2,BUN,CREAT,GLUC,CA,PHOS,ALB ) (09/13/2017 6:34 AM) + + + + | Component | Value | Ref Range | + + + + | GLUCOSE, PLASMA | 107 (H) | 70 - 99 mg/dL | | (LAB) | | | + + + + | BUN, PLASMA (LAB) | 11 | 6 - 20 mg/dL | + + + + | CREATININE PLASMA | 0.52 (L) | 0.70 - 1.30 mg/dL | | (LAB) | | | + + + + | EGFR - | >60 | >60 mL/min | | GABONESE | | | + + + + | EGFR NON | >60 | >60 mL/min | | -GABONESE | | | + + + + | SODIUM, PLASMA (LAB) | 147 (H) | 136 - 145 mmol/L | + + + + | POTASSIUM, PLASMA | 3.2 (L) | 3.4 - 5.0 mmol/L | | (LAB) | | | + + + + | CHLORIDE, PLASMA | 111 (H) | 97 - 108 mmol/L | | (LAB) | | | + + + + | TOTAL CO2, PLASMA | 28 | 21 - 32 mmol/L | | (LAB) | | | + + + + | CALCIUM, PLASMA | 8.3 (L) | 8.6 - 10.2 mg/dL | | (LAB) | | | + + + + | CALCIUM(ALB | 9.3 | 8.6 - 10.2 mg/dL | | CORRECTED) | | | + + + + | ALBUMIN, PLASMA | 2.7 (L) | 3.5 - 4.7 g/dL | | (LAB) | | | + + + + | PHOSPHORUS, PLASMA | 3.1 | 2.4 - 4.7 mg/dL | | (LAB) | | | + + + + | POTASSIUM CMNT | No Hemo | | + + + + | ANION GAP | 8 | 4 - 11 mmol/L | + + + + | ANION GAP(ALB | 11 | 4 - 11 mmol/L | | CORRECTED) | | | + + + + + + + | Specimen | Performing Laboratory | + + + | Blood | [facility], [address] [address] [facility] | | | [place] [address] | + + + + + | Narrative | + + | GFR is estimated using the MDRD equation recommended by the National Kidney Disease | | Education Program. Estimated GFR Interpretive Information: <60 mL/min/1.73 sq | | m Chronic Kidney Disease <15 mL/min/1.73 sq | | m Kidney Failure Estimated GFR greater that 60 mL/min/1.73 | | sq m is of limited clinical value. The MDRD equation is not valid in the following | | situations: - Patients under 18 years of age - Severe malnutrition or obesity - | | Vegetarian diet - Rapidly changing kidney function - Amputees, paraplegics, or other | | muscle-wasting diseses | + + X-RAY ABD LTD FEEDING TUBE EVAL (09/12/2017 6:50 AM) + + + | Specimen | Performing Laboratory | + + + | | [facility]ICE [facility]NITION | + + + + + | Narrative | + + | EXAM: ABD LTD FEEDING TUBE EVAL HISTORY: Dobbhoff tube placement. COMPARISON: | | 09/10/2017. FINDINGS/IMPRESSION: Tip of the weighted tip feeding tube is at the | | 1st portion of the duodenum with functional sidehole in the region of the | | pylorus/gastric antrum, unchanged in position. Enteric tube is unchanged in position | | with proximal side hole at the gastric fundus. Surgical fernandez project over the central | | abdomen. There is a paucity of gas in the abdomen without evidence of obstruction. No | | free air identified. Clips project over the left upper quadrant. I have | | personally reviewed the images and, if necessary, edited the report. I agree with the | | report as now presented. | + + + + | Procedure Note [...] report as now presented. | + + CBC (HEMOGRAM) ONLY (09/12/2017 6:33 AM) + + + + | Component | Value | Ref Range | + + + + | WHITE CELL COUNT | 18.79 (H) | 3.50 - 10.80 K/cu mm | + + + + | RED CELL COUNT | 3.75 (L) | 4.50 - 6.00 M/cu mm | + + + + | HEMOGLOBIN | 10.9 (L) | 13.5 - 17.5 g/dL | + + + + | HEMATOCRIT | 34.5 (L) | 41.0 - 53.0 % | + + + + | MCV | 92.0 | 80.0 - 100.0 fL | + + + + | MCHC | 31.6 (L) | 32.0 - 36.0 g/dL | + + + + | RDW SD | 59.3 (H) | 35.1 - 46.3 fL | + + + + | PLATELET COUNT | 449 (H) | 150 - 400 K/cu mm | + + + + | MPV | 8.6 (L) | 9.7 - 12.3 fL | + + + + | NRBC% | 0.0 | 0.0 - 0.3 % | + + + + | NRBC# | 0.00 | 0.00 - 0.02 K/cu mm | + + + + + + + | Specimen | Performing Laboratory | + + + | Blood | [facility], [address] [place] [address] | | | [place] [address] | + + + + + | Narrative | + + | New reference ranges for MCV, MCHC, PLT, IG% and IG# effective 09/05/2017 | + + MAGNESIUM, PLASMA (09/12/2017 6:33 AM) + +-------+ + | Component | Value | Ref Range | + +-------+ + | MAGNESIUM,PLASMA | 2.3 | 1.6 - 2.6 mg/dL | + +-------+ + + + + | Specimen | Performing Laboratory | + + + | Blood | [facility], [facility] [address] [facility] [address] | | | [place] [address] | + + + + + | Narrative | + + | Reference range change effective 12/11/16. | + + CBC ONLY (09/12/2017 6:33 AM) + + + | Specimen | Performing Laboratory | + + + | Blood | | + + + + + | Narrative | + + | The following orders were created for panel order CBC ONLY. | | Procedure | | Abnormality Status | | --------- | | ------ CBC (HEMOGRAM) | | ONLY[[id number]] Abnormal Final | | result Please view results for these tests on the | | individual orders. | + + RENAL FUNCTION SET (NA,K,CL,CO2,BUN,CREAT,GLUC,CA,PHOS,ALB ) (09/12/2017 6:33 AM) + + + + | Component | Value | Ref Range | + + + + | GLUCOSE, PLASMA | 122 (H) | 70 - 99 mg/dL | | (LAB) | | | + + + + | BUN, PLASMA (LAB) | 14 | 6 - 20 mg/dL | + + + + | CREATININE PLASMA | 0.53 (L) | 0.70 - 1.30 mg/dL | | (LAB) | | | + + + + | EGFR - | >60 | >60 mL/min | | GABONESE | | | + + + + | EGFR NON | >60 | >60 mL/min | | -GABONESE | | | + + + + | SODIUM, PLASMA (LAB) | 147 (H) | 136 - 145 mmol/L | + + + + | POTASSIUM, PLASMA | 3.2 (L) | 3.4 - 5.0 mmol/L | | (LAB) | | | + + + + | CHLORIDE, PLASMA | 109 (H) | 97 - 108 mmol/L | | (LAB) | | | + + + + | TOTAL CO2, PLASMA | 29 | 21 - 32 mmol/L | | (LAB) | | | + + + + | CALCIUM, PLASMA | 8.4 (L) | 8.6 - 10.2 mg/dL | | (LAB) | | | + + + + | CALCIUM(ALB | 9.4 | 8.6 - 10.2 mg/dL | | CORRECTED) | | | + + + + | ALBUMIN, PLASMA | 2.7 (L) | 3.5 - 4.7 g/dL | | (LAB) | | | + + + + | PHOSPHORUS, PLASMA | 3.7 | 2.4 - 4.7 mg/dL | | (LAB) | | | + + + + | POTASSIUM CMNT | No Hemo | | + + + + | ANION GAP | 9 | 4 - 11 mmol/L | + + + + | ANION GAP(ALB | 12 (H) | 4 - 11 mmol/L | | CORRECTED) | | | + + + + + + + | Specimen | Performing Laboratory | + + + | Blood | [facility], [address] | | | [place] [address] | + + + + + | Narrative | + + | GFR is estimated using the MDRD equation recommended by the National Kidney Disease | | Education Program. Estimated GFR Interpretive Information: <60 mL/min/1.73 sq | | m Chronic Kidney Disease <15 mL/min/1.73 sq | | m Kidney Failure Estimated GFR greater that 60 mL/min/1.73 | | sq m is of limited clinical value. The MDRD equation is not valid in the following | | situations: - Patients under 18 years of age - Severe malnutrition or obesity - | | Vegetarian diet - Rapidly changing kidney function - Amputees, paraplegics, or other | | muscle-wasting diseses | + + CT HEAD WO CONTRAST (09/12/2017 4:52 AM) + + + | Specimen | Performing Laboratory | + + + | | [facility]ICE [facility]OGNITION | + + + + + | Narrative | + + | EXAM: CT head without contrast HISTORY: Follow-up intracranial hemorrhage | | COMPARISON: None TECHNIQUE: CT of the head without contrast. FINDINGS: | | Brain: Again seen are postsurgical changes right cranioplasty. The right cerebral | | convexity extra-axial fluid collection underlying the cranioplasty site is not | | significantly changed in size measuring 12 mm in thickness, previously 11 mm with stable | | local mass effect and is stable 3 mm leftward midline shift. Interval decrease in size | | of the right extracranial fluid collection now measuring 6 mm, previously 12 mm. No | | new hemorrhage or territorial infarction. The ventricles are unchanged in size. | | Redemonstration of right temporal parietal encephalomalacia. Scattered maxillary, | | lateral and sphenoid sinus mucosal thickening, decreased compared to prior. Right lamina | | papyracea defect as before as well as old nasal bone fracture. IMPRESSION: | | Stable extra-axial fluid collection deep to the right cranioplasty site with unchanged | | local mass effect and 3 mm leftward midline shift. Interval decrease in size of | | extra-axial fluid collection overlying the right cranioplasty site. I have | | personally reviewed the images and, if necessary, edited the report. I agree with the | | report as now presented. | + + + + | Procedure Note [...] report as now presented. | + + CT CHEST, ABDOMEN AND PELVIS W IV CONTRAST (09/11/2017 1:23 PM) + + + | Specimen | Performing Laboratory | + + + | | [facility]OGN[facility] | + + + + + | Narrative | + + | EXAM: CT of the chest, abdomen and pelvis with intravenous contrast. HISTORY: | | Prior trauma. Rising white count COMPARISON: 08/31/17 CT TECHNIQUE: CT of the | | chest, abdomen and pelvis with non-ionic iodinated intravenous contrast. Coronal and | | sagittal reformats were created. FINDINGS: CHEST: The visualized thyroid is | | normal. There is no axillary, hilar or mediastinal adenopathy. The heart size is normal. | | There is no pericardial effusion. The aorta is unremarkable. Posterior left lower | | lobe consolidation with volume loss and internal air bronchograms are noted. Mild | | bibasilar posterior tree in bud and groundglass nodularity is also present. | | Additionally, there are multifocal areas of groundglass changes and early consolidation | | involving the left upper lobe as well as the right upper and right lower lobes. | | Previously seen left-sided chest tube has been removed. There is no pneumothorax. No | | pleural effusion. LIVER: Unremarkable. BILIARY: Cholelithiasis PANCREAS: | | Unremarkable. SPLEEN: A small amount of intermediate density perisplenic fluid is | | noted, likely blood products. A small cleft at the posterior spleen (4/36) likely | | represents a small less than 1 cm laceration, this was not evident on the prior CT. Tiny | | metallic density focus within the left upper quadrant is new since the prior CT. | | ADRENALS: Unremarkable. KIDNEYS/URETERS: Unremarkable. PELVIC ORGANS/BLADDER: | | Unremarkable. GI TRACT: Unremarkable. PERITONEUM: Small amount of fluid is present | | at the right lower quadrant. Interval closure of the midline defect and resolution of | | previously seen ventral hernia. Amount of fat stranding, likely postsurgical LYMPH | | NODES: No lymphadenopathy. VESSELS: Unremarkable. BONES AND SOFT TISSUES: Proximal | | left humerus fracture, multilevel left-sided rib fractures, T1 and T2 spinous process | | fractures, as well as T4 and T12 vertebral body fractures, and left pelvic fractures | | involving the inferior and superior pubic rami and left sacroiliac joint. Left femoral | | intramedullary nail noted. IMPRESSION: 1. Pulmonary findings concerning for | | developing multifocal pneumonia with possible aspiration. Left lower lobe consolidation | | likely atelectasis, superimposed infection is possible. 2. Small splenic laceration | | with small perisplenic hematoma. 3. Small amount of free right lower quadrant fluid. | | No intra-abdominal source of infection is evident. 4. Multiple fractures as | | previously described. I have personally reviewed the images and, if necessary, | | edited the report. I agree with the report as now presented. | + + + + | Procedure Note [...] report as now presented. | + + CBC (HEMOGRAM) ONLY (09/11/2017 7:12 AM) + + + + | Component | Value | Ref Range | + + + + | WHITE CELL COUNT | 21.53 (H) | 3.50 - 10.80 K/cu mm | + + + + | RED CELL COUNT | 4.00 (L) | 4.50 - 6.00 M/cu mm | + + + + | HEMOGLOBIN | 11.4 (L) | 13.5 - 17.5 g/dL | + + + + | HEMATOCRIT | 36.3 (L) | 41.0 - 53.0 % | + + + + | MCV | 90.8 | 80.0 - 100.0 fL | + + + + | MCHC | 31.4 (L) | 32.0 - 36.0 g/dL | + + + + | RDW SD | 55.0 (H) | 35.1 - 46.3 fL | + + + + | PLATELET COUNT | 450 (H) | 150 - 400 K/cu mm | + + + + | MPV | 8.7 (L) | 9.7 - 12.3 fL | + + + + | NRBC% | 0.0 | 0.0 - 0.3 % | + + + + | NRBC# | 0.00 | 0.00 - 0.02 K/cu mm | + + + + + + + | Specimen | Performing Laboratory | + + + | Blood | [facility], [address] [address] [facility] | | | [place] [address] | + + + + + | Narrative | + + | New reference ranges for MCV, MCHC, PLT, IG% and IG# effective 09/05/2017 | + + MAGNESIUM, PLASMA (09/11/2017 7:12 AM) + +---------+ + | Component | Value | Ref Range | + +---------+ + | MAGNESIUM,PLASMA | 2.7 (H) | 1.6 - 2.6 mg/dL | + +---------+ + + + + | Specimen | Performing Laboratory | + + + | Blood | [facility], [address] | | | [place] [address] | + + + + + | Narrative | + + | Reference range change effective 12/11/16. | + + CBC ONLY (09/11/2017 7:12 AM) + + + | Specimen | Performing Laboratory | + + + | Blood | | + + + + + | Narrative | + + | The following orders were created for panel order CBC ONLY. | | Procedure | | Abnormality Status | | --------- | | ------ CBC (HEMOGRAM) | | ONLY[[id number]] Abnormal Final | | result Please view results for these tests on the | | individual orders. | + + RENAL FUNCTION SET (NA,K,CL,CO2,BUN,CREAT,GLUC,CA,PHOS,ALB ) (09/11/2017 7:12 AM) + + + + | Component | Value | Ref Range | + + + + | GLUCOSE, PLASMA | 131 (H) | 70 - 99 mg/dL | | (LAB) | | | + + + + | BUN, PLASMA (LAB) | 19 | 6 - 20 mg/dL | + + + + | CREATININE PLASMA | 0.56 (L) | 0.70 - 1.30 mg/dL | | (LAB) | | | + + + + | EGFR - | >60 | >60 mL/min | | GABONESE | | | + + + + | EGFR NON | >60 | >60 mL/min | | -GABONESE | | | + + + + | SODIUM, PLASMA (LAB) | 144 | 136 - 145 mmol/L | + + + + | POTASSIUM, PLASMA | 3.6 | 3.4 - 5.0 mmol/L | | (LAB) | | | + + + + | CHLORIDE, PLASMA | 107 | 97 - 108 mmol/L | | (LAB) | | | + + + + | TOTAL CO2, PLASMA | 28 | 21 - 32 mmol/L | | (LAB) | | | + + + + | CALCIUM, PLASMA | 8.5 (L) | 8.6 - 10.2 mg/dL | | (LAB) | | | + + + + | CALCIUM(ALB | 9.5 | 8.6 - 10.2 mg/dL | | CORRECTED) | | | + + + + | ALBUMIN, PLASMA | 2.8 (L) | 3.5 - 4.7 g/dL | | (LAB) | | | + + + + | PHOSPHORUS, PLASMA | 3.8 | 2.4 - 4.7 mg/dL | | (LAB) | | | + + + + | POTASSIUM CMNT | No Hemo | | + + + + | ANION GAP | 9 | 4 - 11 mmol/L | + + + + | ANION GAP(ALB | 12 (H) | 4 - 11 mmol/L | | CORRECTED) | | | + + + + + + + | Specimen | Performing Laboratory | + + + | Blood | [facility], [address] [address] [facility] | | | [place] [address] | + + + + + | Narrative | + + | GFR is estimated using the MDRD equation recommended by the National Kidney Disease | | Education Program. Estimated GFR Interpretive Information: <60 mL/min/1.73 sq | | m Chronic Kidney Disease <15 mL/min/1.73 sq | | m Kidney Failure Estimated GFR greater that 60 mL/min/1.73 | | sq m is of limited clinical value. The MDRD equation is not valid in the following | | situations: - Patients under 18 years of age - Severe malnutrition or obesity - | | Vegetarian diet - Rapidly changing kidney function - Amputees, paraplegics, or other | | muscle-wasting diseses | + + RAINBOW HOLD TUBE - GREEN TOP (09/10/2017 2:15 PM) + + + | Specimen | Performing Laboratory | + + + | Blood | [facility], [address] [place] [address] | | | [place] [address] | + + + X-RAY ABD LTD FEEDING TUBE EVAL (09/10/2017 12:44 PM) + + + | Specimen | Performing Laboratory | + + + | | [facility] VOICE RECOGNITION 2 | + + + + + | Narrative | + + | INDICATION: DHT placement TECHNIQUE: Upright portable view of the upper abdomen. | | Comparison: 09/09/2017 at 10:10 PM. FINDINGS/IMPRESSION: Tip of | | esophagogastric tube is located in the mid stomach. Tip of the Dobbhoff tube located in | | the distal stomach/first portion duodenum. No free air. I have personally reviewed | | the images and, if necessary, edited the report. I agree with the report as now | | presented. Final signature: Edelmira Parsons MD 09/10/2017 2:08 PM Created by: | | Edelmira Parsons MD | + + + + | Procedure Note | + + | 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, Radiant Res In Interface - 09/10/2017 2:08 [...] by: Edelmira Parsons MD | + + VASC LAB VENOUS DUPLEX LOWER EXTREMITY BILAT COMP (09/10/2017 10:56 AM) + + + | Specimen | Performing Laboratory | + + + | | [facility] US | + + + + + | Narrative | + + | Bilateral: The duplex scanner was used to examine the deep and superficial veins of | | the right and left lower extremities. The veins are patent bilaterally with normal | | flow and responses to augmentation and compression maneuvers and no thrombus is noted. | | Conclusions: A normal venous examination of the bilateral lower extremities. No | | venous thrombosis was detected. I have personally reviewed the images and, | | if necessary, edited the report. I agree with the report as now presented. | + + + + | Procedure Note | + + | 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, Kostas Casper In Interface - 09/10/2017 2:31 PM PDT [...] report as now presented. | + + X-RAY PORTABLE CHEST 1 VIEW (09/10/2017 7:16 AM) + + + | Specimen | Performing Laboratory | + + + | | [facility] VOICE RECOGNITION | + + + + + | Narrative | + + | STUDY: UT CHEST 1 VIEW 09/10/17 07:02:01 HISTORY: Possible aspiration | | COMPARISON: 09/07/17 FINDINGS: Enteric tube terminates below the diaphragm. The | | cardiac silhouette is normal in size. Lung volumes are low with scattered atelectasis. | | There are mildly increased perihilar groundglass opacities. No pneumothorax is present. | | Left humeral fracture is partially imaged. IMPRESSION: Mildly increased | | perihilar groundglass opacification, possibly worsening atelectasis or mild | | aspiration/retained secretions. I have personally reviewed the images and, | | if necessary, edited the report. I agree with the report as now presented. | + + + + | Procedure Note | + + | 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, [employer] Res In Interface - 09/10/2017 9:25 AM PDT STUDY: UT CHEST 1 | | VIEW 09/10/17 07:02:01 [...] report as now presented. | + + LIPASE, PLASMA (09/10/2017 5:08 AM) + +-------+ + | Component | Value | Ref Range | + +-------+ + | LIPASE (LAB) | 232 | 152 - 353 U/L | + +-------+ + + + + | Specimen | Performing Laboratory | + + + | Blood | [facility], CORE [address] | | | [place] [address] | + + + AMYLASE, PLASMA (09/10/2017 5:08 AM) + +-------+ + | Component | Value | Ref Range | + +-------+ + | AMYLASE,PLASMA | 58 | 25 - 115 U/L | + +-------+ + + + + | Specimen | Performing Laboratory | + + + | Blood | [facility], CORE [address] | | | [place] [address] | + + + CBC (HEMOGRAM) ONLY (09/10/2017 5:08 AM) + + + + | Component | Value | Ref Range | + + + + | WHITE CELL COUNT | 26.66 (H) | 3.50 - 10.80 K/cu mm | + + + + | RED CELL COUNT | 3.90 (L) | 4.50 - 6.00 M/cu mm | + + + + | HEMOGLOBIN | 11.3 (L) | 13.5 - 17.5 g/dL | + + + + | HEMATOCRIT | 34.5 (L) | 41.0 - 53.0 % | + + + + | MCV | 88.5 | 80.0 - 100.0 fL | + + + + | MCHC | 32.8 | 32.0 - 36.0 g/dL | + + + + | RDW SD | 50.6 (H) | 35.1 - 46.3 fL | + + + + | PLATELET COUNT | 387 | 150 - 400 K/cu mm | + + + + | MPV | 9.1 (L) | 9.7 - 12.3 fL | + + + + | NRBC% | 0.0 | 0.0 - 0.3 % | + + + + | NRBC# | 0.00 | 0.00 - 0.02 K/cu mm | + + + + + + + | Specimen | Performing Laboratory | + + + | Blood | [facility], CORE [address] [facility] | | | [place] [address] | + + + + + | Narrative | + + | New reference ranges for MCV, MCHC, PLT, IG% and IG# effective 09/06/2107 | + + MAGNESIUM, PLASMA (09/10/2017 5:08 AM) + +-------+ + | Component | Value | Ref Range | + +-------+ + | MAGNESIUM,PLASMA | 2.1 | 1.6 - 2.6 mg/dL | + +-------+ + + + + | Specimen | Performing Laboratory | + + + | Blood | [facility], CORE [address] [place] [address] | | | [place] [address] | + + + + + | Narrative | + + | Reference range change effective 8/15/17. | + + CBC ONLY (09/10/2017 5:08 AM) + + + | Specimen | Performing Laboratory | + + + | Blood | | + + + + + | Narrative | + + | The following orders were created for panel order CBC ONLY. | | Procedure | | Abnormality Status | | --------- | | ------ CBC (HEMOGRAM) | | ONLY[[id number]] Abnormal Final | | result Please view results for these tests on the | | individual orders. | + + RENAL FUNCTION SET (NA,K,CL,CO2,BUN,CREAT,GLUC,CA,PHOS,ALB ) (09/10/2017 5:08 AM) + + + + | Component | Value | Ref Range | + + + + | GLUCOSE, PLASMA | 127 (H) | 70 - 99 mg/dL | | (LAB) | | | + + + + | BUN, PLASMA (LAB) | 13 | 6 - 20 mg/dL | + + + + | CREATININE PLASMA | 0.49 (L) | 0.70 - 1.30 mg/dL | | (LAB) | | | + + + + | EGFR - | >60 | >60 mL/min | | GABONESE | | | + + + + | EGFR NON | >60 | >60 mL/min | | -GABONESE | | | + + + + | SODIUM, PLASMA (LAB) | 143 | 136 - 145 mmol/L | + + + + | POTASSIUM, PLASMA | 3.6 | 3.4 - 5.0 mmol/L | | (LAB) | | | + + + + | CHLORIDE, PLASMA | 106 | 97 - 108 mmol/L | | (LAB) | | | + + + + | TOTAL CO2, PLASMA | 26 | 21 - 32 mmol/L | | (LAB) | | | + + + + | CALCIUM, PLASMA | 8.7 | 8.6 - 10.2 mg/dL | | (LAB) | | | + + + + | CALCIUM(ALB | 9.7 | 8.6 - 10.2 mg/dL | | CORRECTED) | | | + + + + | ALBUMIN, PLASMA | 2.8 (L) | 3.5 - 4.7 g/dL | | (LAB) | | | + + + + | PHOSPHORUS, PLASMA | 3.5 | 2.4 - 4.7 mg/dL | | (LAB) | | | + + + + | POTASSIUM CMNT | No Hemo | | + + + + | ANION GAP | 11 | 4 - 11 mmol/L | + + + + | ANION GAP(ALB | 14 (H) | 4 - 11 mmol/L | | CORRECTED) | | | + + + + + + + | Specimen | Performing Laboratory | + + + | Blood | [facility], CORE [address] [place] [address] | | | [place] [address] | + + + + + | Narrative | + + | GFR is estimated using the MDRD equation recommended by the National Kidney Disease | | Education Program. Estimated GFR Interpretive Information: <60 mL/min/1.73 sq | | m Chronic Kidney Disease <15 mL/min/1.73 sq | | m Kidney Failure Estimated GFR greater that 60 mL/min/1.73 | | sq m is of limited clinical value. The MDRD equation is not valid in the following | | situations: - Patients under 18 years of age - Severe malnutrition or obesity - | | Vegetarian diet - Rapidly changing kidney function - Amputees, paraplegics, or other | | muscle-wasting diseses | + + 12 LEAD ECG (09/10/2017 1:08 AM) + + + + | Component | Value | Ref Range | + + + + | VENTRICULAR RATE | 120 | bpm | + + + + | ATRIAL RATE | 120 | ms | + + + + | P-R INTERVAL | 119 | ms | + + + + | P AXIS | 50 | deg | + + + + | QRS DURATION | 119 | ms | + + + + | QT | 346 | ms | + + + + | QTCB | 489 | ms | + + + + | R AXIS | 104 | deg | + + + + | T AXIS | 30 | deg | + + + + | ECG IMPRESSION | Sinus tachycardia | | + + + + | ECG IMPRESSION | Right bundle branch block | | + + + + | ECG IMPRESSION | ST elevation, consider inferior injury | | + + + + | ECG IMPRESSION | Borderline prolonged QT interval- ABNORMAL | | | | ECG - | | + + + + | ECG IMPRESSION | Electronically signed by: JULIO VIZCAINO | | | | 09-10-2017 07:45:43 | | + + + + + + + | Specimen | Performing Laboratory | + + + | | [facility] [address] [place] [address] | | | [place] [address] | + + + X-RAY ABD LTD FEEDING TUBE EVAL PORTABLE (09/09/2017 10:15 PM) + + + | Specimen | Performing Laboratory | + + + | | [facility] VOICE RECOGNITION 2 | + + + + + | Narrative | + + | INDICATION: feeding tube placement TECHNIQUE: Supine portable view of the upper | | abdomen. Comparison: 09/08/2017. FINDINGS/IMPRESSION: Tip of esophagogastric | | tube is located in the distal stomach. No evidence of bowel obstruction. Partial | | visualization of ventral surgical staple line. I have personally reviewed the images | | and, if necessary, edited the report. I agree with the report as now presented. | | Final signature: Edelmira Parsons MD 09/10/2017 11:11 AM Created by: Edelmira Parsons, | | | + + + + | Procedure Note | + + | 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, [employer] In Interface - 09/10/2017 11:11 AM PDT [...] by: Edelmira Parsons MD | + + CAPILLARY BLOOD GLUCOSE (NO CHG), POC (09/09/2017 11:50 AM) + +---------+ + | Component | Value | Ref Range | + +---------+ + | BLOOD GLUCOSE, POC | 150 (H) | 70 - 99 mg/dL | + +---------+ + + + + | Specimen | Performing Laboratory | + + + | | [facility] [address] | | | [place] [address] | + + + MAGNESIUM, PLASMA (09/09/2017 3:50 AM) + +-------+ + | Component | Value | Ref Range | + +-------+ + | MAGNESIUM,PLASMA | 2.0 | 1.6 - 2.6 mg/dL | + +-------+ + + + + | Specimen | Performing Laboratory | + + + | Blood | [facility], [address]ORE [address] | | | [place] [address] | + + + + + | Narrative | + + | Reference range change effective 12/11/16. | + + CBC (HEMOGRAM) ONLY (09/09/2017 3:50 AM) + + + + | Component | Value | Ref Range | + + + + | WHITE CELL COUNT | 8.64 | 3.50 - 10.80 K/cu mm | + + + + | RED CELL COUNT | 3.54 (L) | 4.50 - 6.00 M/cu mm | + + + + | HEMOGLOBIN | 10.2 (L) | 13.5 - 17.5 g/dL | + + + + | HEMATOCRIT | 31.0 (L) | 41.0 - 53.0 % | + + + + | MCV | 87.6 | 80.0 - 100.0 fL | + + + + | MCHC | 32.9 | 32.0 - 36.0 g/dL | + + + + | RDW SD | 48.9 (H) | 35.1 - 46.3 fL | + + + + | PLATELET COUNT | 268 | 150 - 400 K/cu mm | + + + + | MPV | 8.9 (L) | 9.7 - 12.3 fL | + + + + | NRBC% | 0.0 | 0.0 - 0.3 % | + + + + | NRBC# | 0.00 | 0.00 - 0.02 K/cu mm | + + + + + + + | Specimen | Performing Laboratory | + + + | Blood | [facility], C[address] | | | [place] [address] | + + + + + | Narrative | + + | New reference ranges for MCV, MCHC, PLT, IG% and IG# effective 09/06/2107 | + + CBC ONLY (09/09/2017 3:50 AM) + + + | Specimen | Performing Laboratory | + + + | Blood | | + + + + + | Narrative | + + | The following orders were created for panel order CBC ONLY. | | Procedure | | Abnormality Status | | --------- | | ------ CBC (HEMOGRAM) | | ONLY[[id number]] Abnormal Final | | result Please view results for these tests on the | | individual orders. | + + RENAL FUNCTION SET (NA,K,CL,CO2,BUN,CREAT,GLUC,CA,PHOS,ALB ) (09/09/2017 3:50 AM) + + + + | Component | Value | Ref Range | + + + + | GLUCOSE, PLASMA | 105 (H) | 70 - 99 mg/dL | | (LAB) | | | + + + + | BUN, PLASMA (LAB) | 11 | 6 - 20 mg/dL | + + + + | CREATININE PLASMA | 0.42 (L) | 0.70 - 1.30 mg/dL | | (LAB) | | | + + + + | EGFR - | >60 | >60 mL/min | | GABONESE | | | + + + + | EGFR NON | >60 | >60 mL/min | | -GABONESE | | | + + + + | SODIUM, PLASMA (LAB) | 141 | 136 - 145 mmol/L | + + + + | POTASSIUM, PLASMA | 3.4 | 3.4 - 5.0 mmol/L | | (LAB) | | | + + + + | CHLORIDE, PLASMA | 109 (H) | 97 - 108 mmol/L | | (LAB) | | | + + + + | TOTAL CO2, PLASMA | 23 | 21 - 32 mmol/L | | (LAB) | | | + + + + | CALCIUM, PLASMA | 7.9 (L) | 8.6 - 10.2 mg/dL | | (LAB) | | | + + + + | CALCIUM(ALB | 9.0 | 8.6 - 10.2 mg/dL | | CORRECTED) | | | + + + + | ALBUMIN, PLASMA | 2.6 (L) | 3.5 - 4.7 g/dL | | (LAB) | | | + + + + | PHOSPHORUS, PLASMA | 3.3 | 2.4 - 4.7 mg/dL | | (LAB) | | | + + + + | POTASSIUM CMNT | No Hemo | | + + + + | ANION GAP | 9 | 4 - 11 mmol/L | + + + + | ANION GAP(ALB | 12 (H) | 4 - 11 mmol/L | | CORRECTED) | | | + + + + + + + | Specimen | Performing Laboratory | + + + | Blood | [facility], CORE [address] [facility] | | | [place] [address] | + + + + + | Narrative | + + | GFR is estimated using the MDRD equation recommended by the National Kidney Disease | | Education Program. Estimated GFR Interpretive Information: <60 mL/min/1.73 sq | | m Chronic Kidney Disease <15 mL/min/1.73 sq | | m Kidney Failure Estimated GFR greater that 60 mL/min/1.73 | | sq m is of limited clinical value. The MDRD equation is not valid in the following | | situations: - Patients under 18 years of age - Severe malnutrition or obesity - | | Vegetarian diet - Rapidly changing kidney function - Amputees, paraplegics, or other | | muscle-wasting diseses | + + CBC (HEMOGRAM) ONLY (09/08/2017 10:55 AM) + + + + | Component | Value | Ref Range | + + + + | WHITE CELL COUNT | 8.72 | 3.50 - 10.80 K/cu mm | + + + + | RED CELL COUNT | 3.49 (L) | 4.50 - 6.00 M/cu mm | + + + + | HEMOGLOBIN | 10.0 (L) | 13.5 - 17.5 g/dL | + + + + | HEMATOCRIT | 30.5 (L) | 41.0 - 53.0 % | + + + + | MCV | 87.4 | 80.0 - 100.0 fL | + + + + | MCHC | 32.8 | 32.0 - 36.0 g/dL | + + + + | RDW SD | 48.5 (H) | 35.1 - 46.3 fL | + + + + | PLATELET COUNT | 205 | 150 - 400 K/cu mm | + + + + | MPV | 9.4 (L) | 9.7 - 12.3 fL | + + + + | NRBC% | 0.0 | 0.0 - 0.3 % | + + + + | NRBC# | 0.00 | 0.00 - 0.02 K/cu mm | + + + + + + + | Specimen | Performing Laboratory | + + + | Blood | [facility], [address]ORE [address] [facility] | | | [place] [address] | + + + + + | Narrative | + + | New reference ranges for MCV, MCHC, PLT, IG% and IG# effective 09/06/2107 | + + RENAL FUNCTION SET (NA,K,CL,CO2,BUN,CREAT,GLUC,CA,PHOS,ALB ) (09/08/2017 10:55 AM) + + + + | Component | Value | Ref Range | + + + + | GLUCOSE, PLASMA | 133 (H) | 70 - 99 mg/dL | | (LAB) | | | + + + + | BUN, PLASMA (LAB) | 10 | 6 - 20 mg/dL | + + + + | CREATININE PLASMA | 0.37 (L) | 0.70 - 1.30 mg/dL | | (LAB) | | | + + + + | EGFR - | >60 | >60 mL/min | | GABONESE | | | + + + + | EGFR NON | >60 | >60 mL/min | | -GABONESE | | | + + + + | SODIUM, PLASMA (LAB) | 141 | 136 - 145 mmol/L | + + + + | POTASSIUM, PLASMA | 3.3 (L) | 3.4 - 5.0 mmol/L | | (LAB) | | | + + + + | CHLORIDE, PLASMA | 107 | 97 - 108 mmol/L | | (LAB) | | | + + + + | TOTAL CO2, PLASMA | 27 | 21 - 32 mmol/L | | (LAB) | | | + + + + | CALCIUM, PLASMA | 8.0 (L) | 8.6 - 10.2 mg/dL | | (LAB) | | | + + + + | CALCIUM(ALB | 9.2 | 8.6 - 10.2 mg/dL | | CORRECTED) | | | + + + + | ALBUMIN, PLASMA | 2.5 (L) | 3.5 - 4.7 g/dL | | (LAB) | | | + + + + | PHOSPHORUS, PLASMA | 2.5 | 2.4 - 4.7 mg/dL | | (LAB) | | | + + + + | POTASSIUM CMNT | No Hemo | | + + + + | ANION GAP | 7 | 4 - 11 mmol/L | + + + + | ANION GAP(ALB | 10 | 4 - 11 mmol/L | | CORRECTED) | | | + + + + + + + | Specimen | Performing Laboratory | + + + | Blood | [facility], CORE [address] [facility] | | | [place] [address] | + + + + + | Narrative | + + | GFR is estimated using the MDRD equation recommended by the National Kidney Disease | | Education Program. Estimated GFR Interpretive Information: <60 mL/min/1.73 sq | | m Chronic Kidney Disease <15 mL/min/1.73 sq | | m Kidney Failure Estimated GFR greater that 60 mL/min/1.73 | | sq m is of limited clinical value. The MDRD equation is not valid in the following | | situations: - Patients under 18 years of age - Severe malnutrition or obesity - | | Vegetarian diet - Rapidly changing kidney function - Amputees, paraplegics, or other | | muscle-wasting diseses | + + CBC ONLY (09/08/2017 10:55 AM) + + + | Specimen | Performing Laboratory | + + + | Blood | | + + + + + | Narrative | + + | The following orders were created for panel order CBC ONLY. | | Procedure | | Abnormality Status | | --------- | | ------ CBC (HEMOGRAM) | | ONLY[] Abnormal Final | | result Please view results for these tests on the | | individual orders. | + + AMMONIA, PLASMA (09/08/2017 10:55 AM) + +--------+ + | Component | Value | Ref Range | + +--------+ + | AMMONIA (LAB) | 38 (H) | 11 - 35 umol/L | + +--------+ + + + + | Specimen | Performing Laboratory | + + + | Blood | [facility], CORE [address] [place] [address] | | | [place] [address] | + + + LIVER SET (AST,ALT,BILI TOTAL,BILI DIRECT,ALK PHOS,ALB,PROT TOTAL) (09/08/2017 10:55 AM) + +---------+ + | Component | Value | Ref Range | + +---------+ + | ALBUMIN, PLASMA | 2.5 (L) | 3.5 - 4.7 g/dL | | (LAB) | | | + +---------+ + | BILIRUBIN TOTAL | 1.9 (H) | 0.3 - 1.2 mg/dL | + +---------+ + | BILIRUBIN DIRECT | 0.6 (H) | 0.0 - 0.3 mg/dL | + +---------+ + | ALK PHOS | 134 (H) | 56 - 119 U/L | + +---------+ + | AST(SGOT) | 27 | <=41 U/L | + +---------+ + | ALT (SGPT) | 23 | <=60 U/L | + +---------+ + | TOTAL PROTEIN, | 6.4 | 6.4 - 8.2 g/dL | | PLASMA (LAB) | | | + +---------+ + | AST CMNT | No Hemo | | + +---------+ + | BILI T CMNT | No Hemo | | + +---------+ + | BILI D CMNT | No Hemo | | + +---------+ + + + + | Specimen | Performing Laboratory | + + + | Blood | [facility], CORE [address] [facility] | | | [place] [address] | + + + X-RAY ABD LTD FEEDING TUBE EVAL (09/08/2017 4:38 AM) + + + | Specimen | Performing Laboratory | + + + | | [facility] VOICE RECOGNITION | + + + + + | Narrative | + + | EXAM: ABD LTD FEEDING TUBE EVAL 09/08/17 04:04:50 COMPARISON: 09/06/17 | | FINDINGS: Feeding tube has been placed with it's tip projecting in the gastric | | pylorus or first portion of duodenum. Evaluation of the lungs is limited as technique | | was tailored for feeding tube placement. IMPRESSION: Feeding tube tip | | projecting in the gastric pylorus or first portion of duodenum. I have personally | | reviewed the images and, if necessary, edited the report. I agree with the report as | | now presented. | + + + + | Procedure Note [...] report as now presented. | + + 12 LEAD ECG (09/07/2017 11:56 AM) + + + + | Component | Value | Ref Range | + + + + | VENTRICULAR RATE | 102 | bpm | + + + + | ATRIAL RATE | 103 | ms | + + + + | P-R INTERVAL | 142 | ms | + + + + | P AXIS | 86 | deg | + + + + | QRS DURATION | 123 | ms | + + + + | QT | 363 | ms | + + + + | QTCB | 473 | ms | + + + + | R AXIS | 92 | deg | + + + + | T AXIS | 51 | deg | + + + + | ECG IMPRESSION | Sinus tachycardia | | + + + + | ECG IMPRESSION | Right bundle branch block- ABNORMAL ECG - | | + + + + | ECG IMPRESSION | Electronically signed by: PAULO CAVAZOS | | | | 09-07-2017 12:22:02 | | + + + + + + + | Specimen | Performing Laboratory | + + + | | [facility] [address] [place] [address] | | | [place] [address] | + + + X-RAY PORTABLE CHEST 1 VIEW (09/07/2017 6:12 AM) + + + | Specimen | Performing Laboratory | + + + | | [facility] VOICE RECOGNITION | + + + + + | Narrative | + + | EXAM: UT CHEST 1 VIEW HISTORY: Post extubation COMPARISON: 09/05/17 | | FINDINGS: Interval extubation. Enteric tube has been replaced with weighted tip | | Dojeraldhoff, incompletely imaged. C. collar remains in place. Cardiomediastinal silhouette | | is unchanged. Lower lung volumes persist. Slight improvement of perihilar and bibasilar | | atelectasis. No pulmonary edema or focal consolidation. No pneumothorax. Persistent | | blunting of the right costophrenic angle related to small pleural effusion. | | IMPRESSION: Support equipment as above. Persistent low lung volume with slight | | improvement of perihilar and bibasilar atelectasis. I have personally reviewed | | the images and, if necessary, edited the report. I agree with the report as now | | presented. | + + + + | Procedure Note | + + | 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, [employer] Res In Interface - 09/07/2017 10:46 AM PDT EXAM: UT CHEST 1 | | VIEWHISTORY: Post extubationCOMPARISON: [...] report as now presented. | + + CBC (HEMOGRAM) ONLY (09/07/2017 1:00 AM) + + + + | Component | Value | Ref Range | + + + + | WHITE CELL COUNT | 8.28 | 3.50 - 10.80 K/cu mm | + + + + | RED CELL COUNT | 3.31 (L) | 4.50 - 6.00 M/cu mm | + + + + | HEMOGLOBIN | 9.6 (L) | 13.5 - 17.5 g/dL | + + + + | HEMATOCRIT | 29.1 (L) | 41.0 - 53.0 % | + + + + | MCV | 87.9 | 80.0 - 100.0 fL | + + + + | MCHC | 33.0 | 32.0 - 36.0 g/dL | + + + + | RDW SD | 47.7 (H) | 35.1 - 46.3 fL | + + + + | PLATELET COUNT | 141 (L) | 150 - 400 K/cu mm | + + + + | MPV | 8.9 (L) | 9.7 - 12.3 fL | + + + + | NRBC% | 0.0 | 0.0 - 0.3 % | + + + + | NRBC# | 0.00 | 0.00 - 0.02 K/cu mm | + + + + + + + | Specimen | Performing Laboratory | + + + | Blood | [facility], [address] [facility] | | | [place] [address] | + + + + + | Narrative | + + | New reference ranges for MCV, MCHC, PLT, IG% and IG# effective 09/06/2107 | + + RENAL FUNCTION SET (NA,K,CL,CO2,BUN,CREAT,GLUC,CA,PHOS,ALB ) (09/07/2017 1:00 AM) + + + + | Component | Value | Ref Range | + + + + | GLUCOSE, PLASMA | 126 (H) | 70 - 99 mg/dL | | (LAB) | | | + + + + | BUN, PLASMA (LAB) | 8 | 6 - 20 mg/dL | + + + + | CREATININE PLASMA | 0.46 (L) | 0.70 - 1.30 mg/dL | | (LAB) | | | + + + + | EGFR - | >60 | >60 mL/min | | GABONESE | | | + + + + | EGFR NON | >60 | >60 mL/min | | -GABONESE | | | + + + + | SODIUM, PLASMA (LAB) | 140 | 136 - 145 mmol/L | + + + + | POTASSIUM, PLASMA | 3.3 (L) | 3.4 - 5.0 mmol/L | | (LAB) | | | + + + + | CHLORIDE, PLASMA | 104 | 97 - 108 mmol/L | | (LAB) | | | + + + + | TOTAL CO2, PLASMA | 27 | 21 - 32 mmol/L | | (LAB) | | | + + + + | CALCIUM, PLASMA | 7.8 (L) | 8.6 - 10.2 mg/dL | | (LAB) | | | + + + + | CALCIUM(ALB | 9.3 | 8.6 - 10.2 mg/dL | | CORRECTED) | | | + + + + | ALBUMIN, PLASMA | 2.1 (L) | 3.5 - 4.7 g/dL | | (LAB) | | | + + + + | PHOSPHORUS, PLASMA | 2.4 | 2.4 - 4.7 mg/dL | | (LAB) | | | + + + + | POTASSIUM CMNT | No Hemo | | + + + + | ANION GAP | 9 | 4 - 11 mmol/L | + + + + | ANION GAP(ALB | 13 (H) | 4 - 11 mmol/L | | CORRECTED) | | | + + + + + + + | Specimen | Performing Laboratory | + + + | Blood | [facility], CORE [address] [facility] | | | [place] [address] | + + + + + | Narrative | + + | GFR is estimated using the MDRD equation recommended by the National Kidney Disease | | Education Program. Estimated GFR Interpretive Information: <60 mL/min/1.73 sq | | m Chronic Kidney Disease <15 mL/min/1.73 sq | | m Kidney Failure Estimated GFR greater that 60 mL/min/1.73 | | sq m is of limited clinical value. The MDRD equation is not valid in the following | | situations: - Patients under 18 years of age - Severe malnutrition or obesity - | | Vegetarian diet - Rapidly changing kidney function - Amputees, paraplegics, or other | | muscle-wasting diseses | + + MAGNESIUM, PLASMA (09/07/2017 1:00 AM) + +-------+ + | Component | Value | Ref Range | + +-------+ + | MAGNESIUM,PLASMA | 1.8 | 1.6 - 2.6 mg/dL | + +-------+ + + + + | Specimen | Performing Laboratory | + + + | Blood | [facility], [address] [facility] | | | [place] [address] | + + + + + | Narrative | + + | Reference range change effective 12/11/16. | + + CBC ONLY (09/07/2017 1:00 AM) + + + | Specimen | Performing Laboratory | + + + | Blood | | + + + + + | Narrative | + + | The following orders were created for panel order CBC ONLY. | | Procedure | | Abnormality Status | | --------- | | ------ CBC (HEMOGRAM) | | ONLY[[id number]] Abnormal Final | | result Please view results for these tests on the | | individual orders. | + + X-RAY ABD LTD FEEDING TUBE EVAL (09/06/2017 8:04 PM) + + + | Specimen | Performing Laboratory | + + + | | [facility] | + + + + + | Narrative | + + | EXAM: ABD LTD FEEDING TUBE EVAL 09/06/17 19:27:59 COMPARISON: 09/06/17 | | earlier on the same day FINDINGS: Feeding tube has been placed with it's tip | | projecting in the gastric fundus. Evaluation of the lungs is limited as technique was | | tailored for feeding tube placement. There are low lung volumes with residual perihilar | | and basilar atelectasis. Midline skin fernandez are observed in the abdomen. | | IMPRESSION: Feeding tube tip projecting in the gastric fundus. I have | | personally reviewed the images and, if necessary, edited the report. I agree with the | | report as now presented. | + + + + | Procedure Note [...] report as now presented. | + + X-RAY ABD LTD FEEDING TUBE EVAL (09/06/2017 6:40 PM) + + + | Specimen | Performing Laboratory | + + + | | [facility] | + + + + + | Narrative | + + | EXAM: ABD LTD FEEDING TUBE SADIA 09/06/17 18:14:00 COMPARISON: None | | FINDINGS: Feeding tube has been placed with it's tip projecting in the gastric | | fundus. Evaluation of the lungs is limited as technique was tailored for feeding tube | | placement. Healed left rib fractures are seen. IMPRESSION: Feeding tube tip | | projecting in the gastric body. I have personally reviewed the images and, if | | necessary, edited the report. I agree with the report as now presented. | + + + + | Procedure Note [...] report as now presented. | + + 12 LEAD ECG (09/06/2017 12:11 PM) + + + + | Component | Value | Ref Range | + + + + | VENTRICULAR RATE | 98 | bpm | + + + + | ATRIAL RATE | 98 | ms | + + + + | P-R INTERVAL | 133 | ms | + + + + | P AXIS | 61 | deg | + + + + | QRS DURATION | 121 | ms | + + + + | QT | 420 | ms | + + + + | QTCB | 537 | ms | + + + + | R AXIS | 103 | deg | + + + + | T AXIS | -8 | deg | + + + + | ECG IMPRESSION | Sinus rhythm | | + + + + | ECG IMPRESSION | Right bundle branch block | | + + + + | ECG IMPRESSION | Prolonged QT interval- ABNORMAL ECG - | | + + + + | ECG IMPRESSION | Electronically signed by: JULIO VIZCAINO | | | | 09-09-2017 21:14:04 | | + + + + + + + | Specimen | Performing Laboratory | + + + | | [facility] [address] [place] [address] | | | [place] [address] | + + + PROCEDURE NOTE (09/06/2017 9:48 AM) + + | Narrative | + + | Gunjan Patel RN 09/06/2017 9:50 AM Midline Insertion Documentation Note | | Today's date: 09/06/2017 Start Time: At 0940, prior to the beginning of the | | procedure, the team paused to verify the patient's identity, the procedure to be | | performed and the correct side/site. The patient was positioned | | appropriately. Any safety precautions were addressed. Patient Location | | (Unit/Room#): 8CICU #5 Indication for Midline: Access Procedure | | Details: Masks were worn by all members in the room where the procedure was | | performed. Prior to initiating the procedure, the practitioner thoroughly washed | | their hands and donned sterile gloves. The procedure was performed using sterile | | barrier precautions. An ultrasound was used for pre-procedure identification of the | | patient's vascular anatomy. Venipuncture was performed under direct ultrasound | | guidance. The arm was prepped and draped in the procedural sterile fashion and the | | sterile field was maintained at all times. The insertion site was prepped with | | Pierce cloth and Chloraprep. Anesthesia was obtained with 1 mL of buffered 1% | | Lidocaine. Midline Catheter Insertion: The RUE brachial vein was cannulated | | with dark red, non-pulsatile blood return. A 18g 10cm PowerGlide catheter was | | placed on the 1st attempt. Midline lot number [id number]; there was positive blood | | return. The catheter was flushed with 20 mL of Normal Saline, an antimicrobial disc | | was placed at the insertion site and a catheter securement device was utilized. | | Complications:none Placed by: Gunjan Patel RN, BSN | + + RENAL FUNCTION SET (NA,K,CL,CO2,BUN,CREAT,GLUC,CA,PHOS,ALB ) (09/06/2017 12:50 AM) + + + + | Component | Value | Ref Range | + + + + | GLUCOSE, PLASMA | 115 (H) | 70 - 99 mg/dL | | (LAB) | | | + + + + | BUN, PLASMA (LAB) | 9 | 6 - 20 mg/dL | + + + + | CREATININE PLASMA | 0.50 (L) | 0.70 - 1.30 mg/dL | | (LAB) | | | + + + + | EGFR - | >60 | >60 mL/min | | GABONESE | | | + + + + | EGFR NON | >60 | >60 mL/min | | -GABONESE | | | + + + + | SODIUM, PLASMA (LAB) | 140 | 136 - 145 mmol/L | + + + + | POTASSIUM, PLASMA | 3.5 | 3.4 - 5.0 mmol/L | | (LAB) | | | + + + + | CHLORIDE, PLASMA | 104 | 97 - 108 mmol/L | | (LAB) | | | + + + + | TOTAL CO2, PLASMA | 31 | 21 - 32 mmol/L | | (LAB) | | | + + + + | CALCIUM, PLASMA | 7.6 (L) | 8.6 - 10.2 mg/dL | | (LAB) | | | + + + + | CALCIUM(ALB | 9.3 | 8.6 - 10.2 mg/dL | | CORRECTED) | | | + + + + | ALBUMIN, PLASMA | 1.9 (L) | 3.5 - 4.7 g/dL | | (LAB) | | | + + + + | PHOSPHORUS, PLASMA | 3.6 | 2.4 - 4.7 mg/dL | | (LAB) | | | + + + + | POTASSIUM CMNT | No Hemo | | + + + + | ANION GAP | 5 | 4 - 11 mmol/L | + + + + | ANION GAP(ALB | 10 | 4 - 11 mmol/L | | CORRECTED) | | | + + + + + + + | Specimen | Performing Laboratory | + + + | Blood | [facility] [place] [address] | | | [place] [address] | + + + + + | Narrative | + + | Please draw trough just prior to administering the 01:30 dose on 09/06, thanks! GFR is | | estimated using the MDRD equation recommended by the National Kidney Disease Education | | Program. Estimated GFR Interpretive Information: <60 mL/min/1.73 sq | | m Chronic Kidney Disease <15 mL/min/1.73 sq | | m Kidney Failure Estimated GFR greater that 60 mL/min/1.73 | | sq m is of limited clinical value. The MDRD equation is not valid in the following | | situations: - Patients under 18 years of age - Severe malnutrition or obesity - | | Vegetarian diet - Rapidly changing kidney function - Amputees, paraplegics, or other | | muscle-wasting diseses | + + VANCOMYCIN, TROUGH (09/06/2017 12:50 AM) + +---------+ + | Component | Value | Ref Range | + +---------+ + | VANCOMYCIN, TROUGH | 8.8 (L) | 10.0 - 20.0 ug/mL | + +---------+ + + + + | Specimen | Performing Laboratory | + + + | Blood | [facility], CORE [address] | | | [place] [address] | + + + + + | Narrative | + + | Please draw trough just prior to administering the 01:30 dose on 09/06, thanks! | + + X-RAY PORTABLE CHEST 1 VIEW (09/05/2017 5:33 AM) + + + | Specimen | Performing Laboratory | + + + | | [facility] VOICE RECOGNITION | + + + + + | Narrative | + + | EXAM: UT CHEST 1 VIEW HISTORY: Evaluation after chest tube removal. | | COMPARISON: Yesterday FINDINGS: Endotracheal and enteric tubes are unchanged. | | The left chest tube has been removed. The cardiomediastinal silhouette is stable. Lung | | aeration is slightly decreased with mildly increased bilateral perihilar and bibasilar | | atelectasis. No pneumothorax. Persistent small right pleural effusion. IMPRESSION: | | Interval removal of left chest tube without appreciable residual left pneumothorax. | | Mildly increased scattered atelectasis, otherwise no significant change from | | yesterday. I have personally reviewed the images and, if necessary, edited the | | report. I agree with the report as now presented. | + + + + | Procedure Note | + + | 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, [employer] Res In Interface - 09/05/2017 10:16 AM PDT EXAM: UT CHEST 1 | | VIEW HISTORY: Evaluation [...] report as now presented. | + + CBC (HEMOGRAM) ONLY (09/05/2017 3:54 AM) + + + + | Component | Value | Ref Range | + + + + | WHITE CELL COUNT | 9.91 | 3.50 - 10.80 K/cu mm | + + + + | RED CELL COUNT | 3.31 (L) | 4.50 - 6.00 M/cu mm | + + + + | HEMOGLOBIN | 9.6 (L) | 13.5 - 17.5 g/dL | + + + + | HEMATOCRIT | 28.4 (L) | 41.0 - 53.0 % | + + + + | MCV | 85.8 | 80.0 - 96.0 fL | + + + + | MCHC | 33.8 | 33.0 - 35.5 g/dL | + + + + | RDW SD | 47.4 (H) | 35.1 - 46.3 fL | + + + + | PLATELET COUNT | 112 (L) | 150 - 400 K/cu mm | + + + + | MPV | 9.3 (L) | 9.7 - 12.3 fL | + + + + | NRBC% | 0.0 | 0.0 - 0.3 % | + + + + | NRBC# | 0.00 | 0.00 - 0.02 K/cu mm | + + + + + + + | Specimen | Performing Laboratory | + + + | Blood | [facility], CORE [address] | | | [facility] [address] | + + + MAGNESIUM, PLASMA (09/05/2017 3:54 AM) + +-------+ + | Component | Value | Ref Range | + +-------+ + | MAGNESIUM,PLASMA | 1.8 | 1.6 - 2.6 mg/dL | + +-------+ + + + + | Specimen | Performing Laboratory | + + + | Blood | [facility], [facility] [address] | | | [facility] [address] | + + + + + | Narrative | + + | Reference range change effective 12/11/16. | + + CBC ONLY (09/05/2017 3:54 AM) + + + | Specimen | Performing Laboratory | + + + | Blood | | + + + + + | Narrative | + + | The following orders were created for panel order CBC ONLY. | | Procedure | | Abnormality Status | | --------- | | ------ CBC (HEMOGRAM) | | ONLY[] Abnormal Final | | result Please view results for these tests on the | | individual orders. | + + RENAL FUNCTION SET (NA,K,CL,CO2,BUN,CREAT,GLUC,CA,PHOS,ALB ) (09/05/2017 2:13 AM) + + + + | Component | Value | Ref Range | + + + + | GLUCOSE, PLASMA | 136 (H) | 70 - 99 mg/dL | | (LAB) | | | + + + + | BUN, PLASMA (LAB) | 8 | 6 - 20 mg/dL | + + + + | CREATININE PLASMA | 0.56 (L) | 0.70 - 1.30 mg/dL | | (LAB) | | | + + + + | EGFR - | >60 | >60 mL/min | | GABONESE | | | + + + + | EGFR NON | >60 | >60 mL/min | | -GABONESE | | | + + + + | SODIUM, PLASMA (LAB) | 140 | 136 - 145 mmol/L | + + + + | POTASSIUM, PLASMA | 3.7 | 3.4 - 5.0 mmol/L | | (LAB) | | | + + + + | CHLORIDE, PLASMA | 104 | 97 - 108 mmol/L | | (LAB) | | | + + + + | TOTAL CO2, PLASMA | 33 (H) | 21 - 32 mmol/L | | (LAB) | | | + + + + | CALCIUM, PLASMA | 7.3 (L) | 8.6 - 10.2 mg/dL | | (LAB) | | | + + + + | CALCIUM(ALB | 9.1 | 8.6 - 10.2 mg/dL | | CORRECTED) | | | + + + + | ALBUMIN, PLASMA | 1.8 (L) | 3.5 - 4.7 g/dL | | (LAB) | | | + + + + | PHOSPHORUS, PLASMA | 2.3 (L) | 2.4 - 4.7 mg/dL | | (LAB) | | | + + + + | POTASSIUM CMNT | No Hemo | | + + + + | ANION GAP | 3 (L) | 4 - 11 mmol/L | + + + + | ANION GAP(ALB | 8 | 4 - 11 mmol/L | | CORRECTED) | | | + + + + + + + | Specimen | Performing Laboratory | + + + | Blood | [facility], CORE [address] | | | [place] [address] | + + + + + | Narrative | + + | GFR is estimated using the MDRD equation recommended by the National Kidney Disease | | Education Program. Estimated GFR Interpretive Information: <60 mL/min/1.73 sq | | m Chronic Kidney Disease <15 mL/min/1.73 sq | | m Kidney Failure Estimated GFR greater that 60 mL/min/1.73 | | sq m is of limited clinical value. The MDRD equation is not valid in the following | | situations: - Patients under 18 years of age - Severe malnutrition or obesity - | | Vegetarian diet - Rapidly changing kidney function - Amputees, paraplegics, or other | | muscle-wasting diseses | + + RENAL FUNCTION SET (NA,K,CL,CO2,BUN,CREAT,GLUC,CA,PHOS,ALB ) (09/04/2017 4:51 PM) + + + + | Component | Value | Ref Range | + + + + | GLUCOSE, PLASMA | 150 (H) | 70 - 99 mg/dL | | (LAB) | | | + + + + | BUN, PLASMA (LAB) | 6 | 6 - 20 mg/dL | + + + + | CREATININE PLASMA | 0.55 (L) | 0.70 - 1.30 mg/dL | | (LAB) | | | + + + + | EGFR - | >60 | >60 mL/min | | GABONESE | | | + + + + | EGFR NON | >60 | >60 mL/min | | -GABONESE | | | + + + + | SODIUM, PLASMA (LAB) | 143 | 136 - 145 mmol/L | + + + + | POTASSIUM, PLASMA | 3.4 | 3.4 - 5.0 mmol/L | | (LAB) | | | + + + + | CHLORIDE, PLASMA | 107 | 97 - 108 mmol/L | | (LAB) | | | + + + + | TOTAL CO2, PLASMA | 27 | 21 - 32 mmol/L | | (LAB) | | | + + + + | CALCIUM, PLASMA | 7.0 (L) | 8.6 - 10.2 mg/dL | | (LAB) | | | + + + + | CALCIUM(ALB | 8.8 | 8.6 - 10.2 mg/dL | | CORRECTED) | | | + + + + | ALBUMIN, PLASMA | 1.8 (L) | 3.5 - 4.7 g/dL | | (LAB) | | | + + + + | PHOSPHORUS, PLASMA | 3.3 | 2.4 - 4.7 mg/dL | | (LAB) | | | + + + + | POTASSIUM CMNT | No Hemo | | + + + + | ANION GAP | 9 | 4 - 11 mmol/L | + + + + | ANION GAP(ALB | 14 (H) | 4 - 11 mmol/L | | CORRECTED) | | | + + + + + + + | Specimen | Performing Laboratory | + + + | Blood | [facility], CORE [address] | | | [place] [address] | + + + + + | Narrative | + + | GFR is estimated using the MDRD equation recommended by the National Kidney Disease | | Education Program. Estimated GFR Interpretive Information: <60 mL/min/1.73 sq | | m Chronic Kidney Disease <15 mL/min/1.73 sq | | m Kidney Failure Estimated GFR greater that 60 mL/min/1.73 | | sq m is of limited clinical value. The MDRD equation is not valid in the following | | situations: - Patients under 18 years of age - Severe malnutrition or obesity - | | Vegetarian diet - Rapidly changing kidney function - Amputees, paraplegics, or other | | muscle-wasting diseses | + + PROCEDURE NOTE (09/04/2017 2:04 PM) + + | Narrative | + + | CB Betancourt 09/04/2017 2:05 PM Procedure Note: Chest Tube Removal | | Name: [place] Temple 09/04/2017 Time: 2:05 PM Performed By: Janessa | | CB Steel Procedure Details: The patient was placed with left side up. The | | sutures securing the chest tube were removed. The left chest tube was removed without | | difficulty while the patient was taking a maximal deep breath on the vent. [employer]roleum | | gauze and dressing applied and secured using tape. Findings: There were no | | changes to vital signs. Patient tolerated the procedure well. CXR was ordered for | | tomorrow morning. CB Henson Pager / ID: [phone] | + + CULTURE, SPUTUM (09/04/2017 1:17 PM) + + + | Specimen | Performing Laboratory | + + + | Sputum - | [facility] [place] [address] [place], [place] | | Endotracheal tube | [id number] | | tip | | + + + + + | Narrative | + + | Culture Report: 1+ Oral Janessa Gram Stain: No squamous epithelial cells Rare | | polymorphonuclear cells No organisms seen | + + URINE, MICROSCOPIC EXAM (09/04/2017 1:17 PM) + +---------+ + | Component | Value | Ref Range | + +---------+ + | RED CELLS | 3 | 0 - 3 /hpf | + +---------+ + | WHITE CELLS | 1 | 0 - 5 /hpf | + +---------+ + | BACTERIA | None | None /hpf | + +---------+ + | YEAST (LAB) | None | None /hpf | + +---------+ + | SQUAMOUS EPITHELIAL | None | None /hpf | + +---------+ + | MUCOUS | Few (A) | None /hpf | + +---------+ + | TRICHOMONAS | None | None /hpf | + +---------+ + | NON-SQUAMOUS EPITH | None | None /hpf | + +---------+ + | HYALINE CASTS | 0 | 0 - 2 /lpf | + +---------+ + | GRANULAR CASTS | 4 (H) | 0 - 2 /lpf | + +---------+ + | CELLULAR CASTS | 0 | <=0 /lpf | + +---------+ + | TRIPLE P04 CRYSTALS | None | None /hpf | + +---------+ + | CALCIUM OXALATE CECILIA | None | None /hpf | + +---------+ + | URIC ACID CRYSTALS | None | None /hpf | + +---------+ + | AMORPHOUS CRYSTALS | None | None /hpf | + +---------+ + + + + | Specimen | Performing Laboratory | + + + | Urine - Catheter - | [facility], CORE [address] | | [address] | [place] [address] | + + + UA, DIPSTICK ONLY (09/04/2017 1:17 PM) + + + + | Component | Value | Ref Range | + + + + | COLOR(UR) | Yellow | | + + + + | APPEARANCE | Clear | | + + + + | GLUCOSE(UR) | Negative | Negative, 50.0 | | | | mg/dL | + + + + | PROTEIN(LAB) | Negative | Negative, 30.0 | | | | mg/dL | + + + + | BILIRUBIN | Negative | Negative | + + + + | UROBILINOGEN | <2.0 | <2.0 mg/dL | + + + + | PH(UR) | 5.0 | 5.0 - 8.0 | + + + + | BLOOD | Small (A) | Negative | + + + + | KETONES | 20.0 (A) | Negative mg/dL | + + + + | NITRITES | Negative | Negative | + + + + | LEUKOCYTE ESTERASE | Negative | Negative | + + + + | SPECIFIC GRAVITY | 1.011Comment: Specific Lolo performed by | 1.005 - 1.030 | | | refractometry | | + + + + + + + | Specimen | Performing Laboratory | + + + | Urine - Catheter - | [facility], CORE [address] | | [address]welling | [place] [address] | + + + CULTURE, BLOOD BACTI & YEAST SELENA (09/04/2017 1:16 PM) + + + + | Component | Value | Ref Range | + + + + | CULTURE RESULT | Final Report:No Bacteria or Yeast isolated | | | | at 5 days. | | + + + + + + + | Specimen | Performing Laboratory | + + + | Blood - Arterial | [facility], CORE [address] | | line | [place] [address] | + + + CULTURE, BLOOD BACTI & YEAST SELENA (09/04/2017 1:16 PM) + + + + | Component | Value | Ref Range | + + + + | CULTURE RESULT | Final Report:No Bacteria or Yeast isolated | | | | at 5 days. | | + + + + + + + | Specimen | Performing Laboratory | + + + | Blood - Peripheral | [facility], CORE [address] | | | [place] [address] | + + + CULTURE, BLOOD BACTI & YEAST (09/04/2017 1:16 PM) + + + | Specimen | Performing Laboratory | + + + | Blood | | + + + + + | Narrative | + + | The following orders were created for panel order CULTURE, BLOOD BACTI & YEAST. | | Procedure | | Abnormality Status | | --------- | | ------ CULTURE, BLOOD | | BACTI & Y...[[id number]] Final | | result Please view results for these tests on the | | individual orders. | + + CULTURE, BLOOD BACTI & YEAST (09/04/2017 1:16 PM) + + + | Specimen | Performing Laboratory | + + + | Blood | | + + + + + | Narrative | + + | The following orders were created for panel order CULTURE, BLOOD BACTI & YEAST. | | Procedure | | Abnormality Status | | --------- | | ------ CULTURE, BLOOD | | BACTI & Y...[[id number]] Final | | result Please view results for these tests on the | | individual orders. | + + 12 LEAD ECG (09/04/2017 9:29 AM) + + + + | Component | Value | Ref Range | + + + + | VENTRICULAR RATE | 99 | bpm | + + + + | ATRIAL RATE | 99 | ms | + + + + | P-R INTERVAL | 139 | ms | + + + + | P AXIS | 51 | deg | + + + + | QRS DURATION | 123 | ms | + + + + | QT | 368 | ms | + + + + | QTCB | 474 | ms | + + + + | R AXIS | 110 | deg | + + + + | T AXIS | 25 | deg | + + + + | ECG IMPRESSION | Sinus rhythm | | + + + + | ECG IMPRESSION | Right bundle branch block- ABNORMAL ECG - | | + + + + | ECG IMPRESSION | Electronically signed by: AJAY DE LOS SANTOS | | | | 09-04-2017 13:44:49 | | + + + + + + + | Specimen | Performing Laboratory | + + + | | [facility] [address] | | | [place] [address] | + + + X-RAY PORTABLE CHEST 1 VIEW (09/04/2017 7:04 AM) + + + | Specimen | Performing Laboratory | + + + | | [facility] VOICE RECOGNITION | + + + + + | Narrative | + + | EXAM: UT CHEST 1 VIEW HISTORY: Hypoxia. Intubated. COMPARISON: 09/01/17 | | FINDINGS: Endotracheal tube tip is 2 cm above the yifan. Left-sided chest tube | | and enteric tube remain in place. Abdominal skin fernandez noted. There is improved | | aeration with decreased scattered atelectasis. There is no definite pulmonary | | edema. Small right pleural effusion evident. There is no pneumothorax. | | IMPRESSION: Increased left basilar atelectasis, otherwise improved minimal | | scattered atelectasis elsewhere. Small right pleural effusion probably slightly | | increased. I have personally reviewed the images and, if necessary, edited the | | report. I agree with the report as now presented. | + + + + | Procedure Note | + + | 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, [employer] In Interface - 09/04/2017 9:49 AM PDT EXAM: UT CHEST 1 | | VIEW HISTORY: Hypoxia. [...] report as now presented. | + + BLOOD GASES, ARTERIAL - LAB (09/04/2017 12:29 AM) + + + + | Component | Value | Ref Range | + + + + | FIO2 ARTERIAL | 0.30Comment: 37.6 C | | + + + + | PH ARTERIAL | 7.35 (L) | 7.37 - 7.44 | + + + + | PCO2 ARTERIAL | 54 (H) | 32 - 43 mmHg | + + + + | PO2 ARTERIAL | 80 | 72 - 104 mmHg | + + + + | HCO3 ARTERIAL | 29 (H) | 21 - 28 mmol/L | + + + + | TOTAL CO2 ARTERIAL | 31 (H) | 22 - 28 mmol/L | + + + + | BASE EXCESS ARTERIAL | 3.0 (H) | -2.0 - 2.0 mmol/L | + + + + | O2 SAT, ARTERIAL | 96.6 | 92.0 - 98.0 % | + + + + | PAO2/FIO2 RATIO | 267 (L) | >300 mmHg | + + + + + + + | Specimen | Performing Laboratory | + + + | Blood | [facility], CORE [address] [place] [address] | | | [place] [address] | + + + CBC (HEMOGRAM) ONLY (09/04/2017 12:29 AM) + + + + | Component | Value | Ref Range | + + + + | WHITE CELL COUNT | 11.75 (H) | 3.50 - 10.80 K/cu mm | + + + + | RED CELL COUNT | 3.53 (L) | 4.50 - 6.00 M/cu mm | + + + + | HEMOGLOBIN | 10.1 (L) | 13.5 - 17.5 g/dL | + + + + | HEMATOCRIT | 31.1 (L) | 41.0 - 53.0 % | + + + + | MCV | 88.1 | 80.0 - 96.0 fL | + + + + | MCHC | 32.5 | 33.0 - 35.5 g/dL | + + + + | RDW SD | 48.9 (H) | 35.1 - 46.3 fL | + + + + | PLATELET COUNT | 105 (L) | 150 - 400 K/cu mm | + + + + | MPV | 10.2 | 9.7 - 12.3 fL | + + + + | NRBC% | 0.0 | 0.0 - 0.3 % | + + + + | NRBC# | 0.00 | 0.00 - 0.02 K/cu mm | + + + + + + + | Specimen | Performing Laboratory | + + + | Blood | [facility], C[facility] [address] | | | [place] [address] | + + + RENAL FUNCTION SET (NA,K,CL,CO2,BUN,CREAT,GLUC,CA,PHOS,ALB ) (09/04/2017 12:29 AM) + + + + | Component | Value | Ref Range | + + + + | GLUCOSE, PLASMA | 112 (H) | 70 - 99 mg/dL | | (LAB) | | | + + + + | BUN, PLASMA (LAB) | 6 | 6 - 20 mg/dL | + + + + | CREATININE PLASMA | 0.52 (L) | 0.70 - 1.30 mg/dL | | (LAB) | | | + + + + | EGFR - | >60 | >60 mL/min | | GABONESE | | | + + + + | EGFR NON | >60 | >60 mL/min | | -GABONESE | | | + + + + | SODIUM, PLASMA (LAB) | 141 | 136 - 145 mmol/L | + + + + | POTASSIUM, PLASMA | 3.6 | 3.4 - 5.0 mmol/L | | (LAB) | | | + + + + | CHLORIDE, PLASMA | 107 | 97 - 108 mmol/L | | (LAB) | | | + + + + | TOTAL CO2, PLASMA | 29 | 21 - 32 mmol/L | | (LAB) | | | + + + + | CALCIUM, PLASMA | 7.5 (L) | 8.6 - 10.2 mg/dL | | (LAB) | | | + + + + | CALCIUM(ALB | 9.2 | 8.6 - 10.2 mg/dL | | CORRECTED) | | | + + + + | ALBUMIN, PLASMA | 1.9 (L) | 3.5 - 4.7 g/dL | | (LAB) | | | + + + + | PHOSPHORUS, PLASMA | 2.6 | 2.4 - 4.7 mg/dL | | (LAB) | | | + + + + | POTASSIUM CMNT | No Hemo | | + + + + | ANION GAP | 5 | 4 - 11 mmol/L | + + + + | ANION GAP(ALB | 10 | 4 - 11 mmol/L | | CORRECTED) | | | + + + + + + + | Specimen | Performing Laboratory | + + + | Blood | [facility], CORE [address] | | | [place] [address] | + + + + + | Narrative | + + | GFR is estimated using the MDRD equation recommended by the National Kidney Disease | | Education Program. Estimated GFR Interpretive Information: <60 mL/min/1.73 sq | | m Chronic Kidney Disease <15 mL/min/1.73 sq | | m Kidney Failure Estimated GFR greater that 60 mL/min/1.73 | | sq m is of limited clinical value. The MDRD equation is not valid in the following | | situations: - Patients under 18 years of age - Severe malnutrition or obesity - | | Vegetarian diet - Rapidly changing kidney function - Amputees, paraplegics, or other | | muscle-wasting diseses | + + MAGNESIUM, PLASMA (09/04/2017 12:29 AM) + +-------+ + | Component | Value | Ref Range | + +-------+ + | MAGNESIUM,PLASMA | 1.9 | 1.6 - 2.6 mg/dL | + +-------+ + + + + | Specimen | Performing Laboratory | + + + | Blood | [facility], CORE [address] | | | [place] [address] | + + + + + | Narrative | + + | Reference range change effective 12/11/16. | + + CBC ONLY (09/04/2017 12:29 AM) + + + | Specimen | Performing Laboratory | + + + | Blood | | + + + + + | Narrative | + + | The following orders were created for panel order CBC ONLY. | | Procedure | | Abnormality Status | | --------- | | ------ CBC (HEMOGRAM) | | ONLY[[id number]] Abnormal Final | | result Please view results for these tests on the | | individual orders. | + + CAPILLARY BLOOD GLUCOSE (NO CHG), POC (09/04/2017 12:27 AM) + +---------+ + | Component | Value | Ref Range | + +---------+ + | BLOOD GLUCOSE, POC | 116 (H) | 70 - 99 mg/dL | + +---------+ + + + + | Specimen | Performing Laboratory | + + + | | [facility] [address] | | | [place] [address] | + + + CAPILLARY BLOOD GLUCOSE (NO CHG), POC (09/04/2017 12:17 AM) + +-------+ + | Component | Value | Ref Range | + +-------+ + | BLOOD GLUCOSE, POC | 72 | 70 - 99 mg/dL | + +-------+ + + + + | Specimen | Performing Laboratory | + + + | | [facility] [address] | | | [place] [address] | + + + CAPILLARY BLOOD GLUCOSE (NO CHG), POC (09/03/2017 9:22 PM) + +---------+ + | Component | Value | Ref Range | + +---------+ + | BLOOD GLUCOSE, POC | 119 (H) | 70 - 99 mg/dL | + +---------+ + + + + | Specimen | Performing Laboratory | + + + | | [facility], POINT OF CARE TESTS [address] | | | [place] [address] | + + + CAPILLARY BLOOD GLUCOSE (NO CHG), POC (09/03/2017 1:30 PM) + +-------+ + | Component | Value | Ref Range | + +-------+ + | BLOOD GLUCOSE, POC | 97 | 70 - 99 mg/dL | + +-------+ + + + + | Specimen | Performing Laboratory | + + + | | [facility] [place], POINT OF CARE TESTS [address] | | | [place] [address] | + + + VASC LAB VENOUS DUPLEX LOWER EXTREMITY BILAT COMP (09/03/2017 9:51 AM) + + + | Specimen | Performing Laboratory | + + + | | [facility] | + + + + + | Narrative | + + | Bilateral: The duplex scanner was used to examine the deep and superficial veins of | | the right and left lower extremities. The left common femoral and profunda femoral | | veins were not examined due to overlying bandages. All other veins are patent | | bilaterally with normal flow and responses to augmentation and compression maneuvers and | | no thrombus is noted. Conclusions: No deep or superficial venous thrombosis | | detected bilaterally. The left common femoral and profunda femoral veins were not | | examined. Limitations of the examination described above preclude the study from | | definitive exclusion of DVT. If clinical suspicion of DVT remains a follow-up study | | is suggested in 3 to 5 days. I have personally reviewed the images and, if | | necessary, edited the report. I agree with the report as now presented. | + + + + | Procedure Note | + + | 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, [employer] In Interface - 09/03/2017 10:27 AM PDT [...] report as now presented. | + + CULTURE, AFB (ALL SPEC TYPES EXCEPT BLOOD) (09/03/2017 9:48 AM) + + + | Specimen | Performing Laboratory | + + + | Sputum - | [facility] [address] [address] [place], [place] | | Expectorated | [id number] | + + + + + | Narrative | + + | Culture Report: No acid fast bacteria isolated at 6 weeks. AFB Smear: AFB not | | detected | + + HEMATOCRIT (09/03/2017 5:12 AM) + + + + | Component | Value | Ref Range | + + + + | HEMATOCRIT | 33.1 (L) | 41.0 - 53.0 % | + + + + + + + | Specimen | Performing Laboratory | + + + | Blood | [facility], CORE [address] [facility] | | | [place] [address] | + + + X-RAY ABD LTD FEEDING TUBE EVAL (09/03/2017 4:32 AM) + + + | Specimen | Performing Laboratory | + + + | | [facility] VOICE RECOGNITION | + + + + + | Narrative | + + | EXAM: Single supine view of the abdomen. History: NGT placement Comparison: | | 09/02/2017. IMPRESSION: Wires, leads, and tubing obscure portions of the | | radiograph. Esophagogastric tube extends into the distal stomach. No evidence of | | bowel obstruction. I have personally reviewed the images and, if necessary, | | edited the report. I agree with the report as now presented. | + + + + | Procedure Note | + + | 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, Kostas Casper In Interface - 09/03/2017 9:54 AM PDT [...] report as now presented. | + + CULTURE, AFB (ALL SPEC TYPES EXCEPT BLOOD) (09/03/2017 12:52 AM) + + + | Specimen | Performing Laboratory | + + + | Sputum - | [facility] [address] [place], [place] | | Expectorated | [id number] | + + + + + | Narrative | + + | Culture Report: No acid fast bacteria isolated at 6 weeks. AFB Smear: AFB not | | detected | + + BLOOD GASES, ARTERIAL - LAB (09/02/2017 11:37 PM) + + + + | Component | Value | Ref Range | + + + + | FIO2 ARTERIAL | 0.30 | | + + + + | PH ARTERIAL | 7.42 | 7.37 - 7.44 | + + + + | PCO2 ARTERIAL | 42 | 32 - 43 mmHg | + + + + | PO2 ARTERIAL | 115 (H) | 72 - 104 mmHg | + + + + | HCO3 ARTERIAL | 27 | 21 - 28 mmol/L | + + + + | TOTAL CO2 ARTERIAL | 28 | 22 - 28 mmol/L | + + + + | BASE EXCESS ARTERIAL | 2.6 (H) | -2.0 - 2.0 mmol/L | + + + + | O2 SAT, ARTERIAL | 98.7 (H) | 92.0 - 98.0 % | + + + + | PAO2/FIO2 RATIO | 383 | >300 mmHg | + + + + + + + | Specimen | Performing Laboratory | + + + | Blood | [facility], [address]ORE [address] | | | [place] [address] | + + + CBC (HEMOGRAM) ONLY (09/02/2017 11:36 PM) + + + + | Component | Value | Ref Range | + + + + | WHITE CELL COUNT | 9.66 | 3.50 - 10.80 K/cu mm | + + + + | RED CELL COUNT | 3.44 (L) | 4.50 - 6.00 M/cu mm | + + + + | HEMOGLOBIN | 10.1 (L) | 13.5 - 17.5 g/dL | + + + + | HEMATOCRIT | 29.6 (L) | 41.0 - 53.0 % | + + + + | MCV | 86.0 | 80.0 - 96.0 fL | + + + + | MCHC | 34.1 | 33.0 - 35.5 g/dL | + + + + | RDW SD | 46.9 (H) | 35.1 - 46.3 fL | + + + + | PLATELET COUNT | 84 (L) | 150 - 400 K/cu mm | + + + + | MPV | 10.3 | 9.7 - 12.3 fL | + + + + | NRBC% | 0.0 | 0.0 - 0.3 % | + + + + | NRBC# | 0.00 | 0.00 - 0.02 K/cu mm | + + + + + + + | Specimen | Performing Laboratory | + + + | Blood | [facility], CORE [address] [place] [address] | | | [place] [address] | + + + RENAL FUNCTION SET (NA,K,CL,CO2,BUN,CREAT,GLUC,CA,PHOS,ALB ) (09/02/2017 11:36 PM) + + + + | Component | Value | Ref Range | + + + + | GLUCOSE, PLASMA | 113 (H) | 70 - 99 mg/dL | | (LAB) | | | + + + + | BUN, PLASMA (LAB) | 7 | 6 - 20 mg/dL | + + + + | CREATININE PLASMA | 0.56 (L) | 0.70 - 1.30 mg/dL | | (LAB) | | | + + + + | EGFR - | >60 | >60 mL/min | | GABONESE | | | + + + + | EGFR NON | >60 | >60 mL/min | | -GABONESE | | | + + + + | SODIUM, PLASMA (LAB) | 147 (H) | 136 - 145 mmol/L | + + + + | POTASSIUM, PLASMA | 3.5 | 3.4 - 5.0 mmol/L | | (LAB) | | | + + + + | CHLORIDE, PLASMA | 112 (H) | 97 - 108 mmol/L | | (LAB) | | | + + + + | TOTAL CO2, PLASMA | 25 | 21 - 32 mmol/L | | (LAB) | | | + + + + | CALCIUM, PLASMA | 7.1 (L) | 8.6 - 10.2 mg/dL | | (LAB) | | | + + + + | CALCIUM(ALB | 8.9 | 8.6 - 10.2 mg/dL | | CORRECTED) | | | + + + + | ALBUMIN, PLASMA | 1.7 (L) | 3.5 - 4.7 g/dL | | (LAB) | | | + + + + | PHOSPHORUS, PLASMA | 2.9 | 2.4 - 4.7 mg/dL | | (LAB) | | | + + + + | POTASSIUM CMNT | No Hemo | | + + + + | ANION GAP | 10 | 4 - 11 mmol/L | + + + + | ANION GAP(ALB | 15 (H) | 4 - 11 mmol/L | | CORRECTED) | | | + + + + + + + | Specimen | Performing Laboratory | + + + | Blood | [facility], [address] [address] | | | [place] [address] | + + + + + | Narrative | + + | GFR is estimated using the MDRD equation recommended by the National Kidney Disease | | Education Program. Estimated GFR Interpretive Information: <60 mL/min/1.73 sq | | m Chronic Kidney Disease <15 mL/min/1.73 sq | | m Kidney Failure Estimated GFR greater that 60 mL/min/1.73 | | sq m is of limited clinical value. The MDRD equation is not valid in the following | | situations: - Patients under 18 years of age - Severe malnutrition or obesity - | | Vegetarian diet - Rapidly changing kidney function - Amputees, paraplegics, or other | | muscle-wasting diseses | + + MAGNESIUM, PLASMA (09/02/2017 11:36 PM) + +-------+ + | Component | Value | Ref Range | + +-------+ + | MAGNESIUM,PLASMA | 1.8 | 1.6 - 2.6 mg/dL | + +-------+ + + + + | Specimen | Performing Laboratory | + + + | Blood | [facility], CORE [address] [facility] | | | [place] [address] | + + + + + | Narrative | + + | Reference range change effective 12/11/16. | + + CBC ONLY (09/02/2017 11:36 PM) + + + | Specimen | Performing Laboratory | + + + | Blood | | + + + + + | Narrative | + + | The following orders were created for panel order CBC ONLY. | | Procedure | | Abnormality Status | | --------- | | ------ CBC (HEMOGRAM) | | ONLY[[id number]] Abnormal Final | | result Please view results for these tests on the | | individual orders. | + + OPERATION RECORD (09/02/2017 6:53 PM) + + | Procedure Note | + + | Fidelina Shields MD - 09/02/2017 6:53 PM PDT Date of Service: 09/02/2017 | | Attending Surgeon: Fidelina Shields MD Therapeutic Program Worker(s): | | Ajay Garcia MD, resident. Preoperative Diagnosis: Status post | [...] transferred to the ICU in stable condition.Ajay Garcia, | | MDMashona Shields MDTBK/MODLDD: 09/02/2017 18:15:29DT: 09/02/2017 18:53:52Job #: | | [id number] to federal Medicare and Medicaid regulations I was present for | | the entire procedure.Fidelina Tenorio ProfessorDepartment of SurgeryOffice: | | [phone]: [id number] has been electronically signed by Fidelina Shields MD, | | 09/03/2017 at 9:11 AM. | | | | | |Fidelina Shields MD | |Wireless Development Manager | |Department of Surgery | |Office: [phone] | |Pager: [phone] | | | |This has been electronically signed by Fidelina Shields MD, 09/03/2017 at 9:11 AM. | + + HEMATOCRIT (09/02/2017 5:50 PM) + + + + | Component | Value | Ref Range | + + + + | HEMATOCRIT | 32.1 (L) | 41.0 - 53.0 % | + + + + + + + | Specimen | Performing Laboratory | + + + | Blood | [facility], CORE [address] [place] [address] | | | [place] [address] | + + + BLOOD GASES, ARTERIAL - LAB (09/02/2017 5:49 PM) + + + + | Component | Value | Ref Range | + + + + | FIO2 ARTERIAL | 0.30Comment: 37.0 | | + + + + | PH ARTERIAL | 7.50 (H) | 7.37 - 7.44 | + + + + | PCO2 ARTERIAL | 34 | 32 - 43 mmHg | + + + + | PO2 ARTERIAL | 117 (H) | 72 - 104 mmHg | + + + + | HCO3 ARTERIAL | 26 | 21 - 28 mmol/L | + + + + | TOTAL CO2 ARTERIAL | 27 | 22 - 28 mmol/L | + + + + | BASE EXCESS ARTERIAL | 3.2 (H) | -2.0 - 2.0 mmol/L | + + + + | O2 SAT, ARTERIAL | 98.7 (H) | 92.0 - 98.0 % | + + + + | PAO2/FIO2 RATIO | 390 | >300 mmHg | + + + + + + + | Specimen | Performing Laboratory | + + + | Blood | [facility], CORE [address] [facility] | | | [place], [place] [address] | + + + CULTURE, AFB (ALL SPEC TYPES EXCEPT BLOOD) (09/02/2017 5:10 PM) + + + | Specimen | Performing Laboratory | + + + | Sputum - | [facility] [id number] [place] [address] | | Expectorated | [id number] | + + + + + | Narrative | + + | Culture Report: No acid fast bacteria isolated at 6 weeks. AFB Smear: AFB not | | detected | + + MAGNESIUM, PLASMA (09/02/2017 4:14 PM) + +-------+ + | Component | Value | Ref Range | + +-------+ + | MAGNESIUM,PLASMA | 2.0 | 1.6 - 2.6 mg/dL | + +-------+ + + + + | Specimen | Performing Laboratory | + + + | Blood | [facility], CORE [address] [facility] | | | [place] [address] | + + + + + | Narrative | + + | Reference range change effective 12/11/16. | + + RENAL FUNCTION SET (NA,K,CL,CO2,BUN,CREAT,GLUC,CA,PHOS,ALB ) (09/02/2017 4:14 PM) + + + + | Component | Value | Ref Range | + + + + | GLUCOSE, PLASMA | 119 (H) | 70 - 99 mg/dL | | (LAB) | | | + + + + | BUN, PLASMA (LAB) | 5 (L) | 6 - 20 mg/dL | + + + + | CREATININE PLASMA | 0.52 (L) | 0.70 - 1.30 mg/dL | | (LAB) | | | + + + + | EGFR - | >60 | >60 mL/min | | GABONESE | | | + + + + | EGFR NON | >60 | >60 mL/min | | -GABONESE | | | + + + + | SODIUM, PLASMA (LAB) | 144 | 136 - 145 mmol/L | + + + + | POTASSIUM, PLASMA | 4.0 | 3.4 - 5.0 mmol/L | | (LAB) | | | + + + + | CHLORIDE, PLASMA | 111 (H) | 97 - 108 mmol/L | | (LAB) | | | + + + + | TOTAL CO2, PLASMA | 24 | 21 - 32 mmol/L | | (LAB) | | | + + + + | CALCIUM, PLASMA | 7.4 (L) | 8.6 - 10.2 mg/dL | | (LAB) | | | + + + + | CALCIUM(ALB | 9.1 | 8.6 - 10.2 mg/dL | | CORRECTED) | | | + + + + | ALBUMIN, PLASMA | 1.9 (L) | 3.5 - 4.7 g/dL | | (LAB) | | | + + + + | PHOSPHORUS, PLASMA | 3.3 | 2.4 - 4.7 mg/dL | | (LAB) | | | + + + + | POTASSIUM CMNT | No Hemo | | + + + + | ANION GAP | 9 | 4 - 11 mmol/L | + + + + | ANION GAP(ALB | 14 (H) | 4 - 11 mmol/L | | CORRECTED) | | | + + + + + + + | Specimen | Performing Laboratory | + + + | Blood | [facility], CORE [address] [facility] | | | [place] [address] | + + + + + | Narrative | + + | GFR is estimated using the MDRD equation recommended by the National Kidney Disease | | Education Program. Estimated GFR Interpretive Information: <60 mL/min/1.73 sq | | m Chronic Kidney Disease <15 mL/min/1.73 sq | | m Kidney Failure Estimated GFR greater that 60 mL/min/1.73 | | sq m is of limited clinical value. The MDRD equation is not valid in the following | | situations: - Patients under 18 years of age - Severe malnutrition or obesity - | | Vegetarian diet - Rapidly changing kidney function - Amputees, paraplegics, or other | | muscle-wasting diseses | + + X-RAY ABDOMEN 2 VIEWS (09/02/2017 4:13 PM) + + + | Specimen | Performing Laboratory | + + + | | [facility] VOICE RECOGNITION | + + + + + | Narrative | + + | X-RAY ABDOMEN, 2 VIEW HISTORY: Status post intraoperative removal of left | | upper quadrant lap pads COMPARISON: None IMPRESSION: Supine and crosstable | | lateral intraoperative views. No retained surgical material. Nasogastric tube terminates | | in the stomach; redundant tubing in the stomach. Urinary catheter noted. Nonobstructive | | bowel gas pattern. Small amount of gas in the peritoneal cavity and the anterior | | abdominal wall compatible with surgery. Discussed with Veronika Wilson RN in the | | operating room at 3:06 PM on 09/02/17. I have personally reviewed the images and, | | if necessary, edited the report. I agree with the report as now presented. | + + + + | Procedure Note | + + | 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, Kostas Res In Interface - 09/02/2017 4:25 PM [...] report as now presented. | + + PROCEDURE NOTE (09/02/2017 2:54 PM) + + | Narrative | + + | Fidelina Shields MD 09/02/2017 4:32 PM BRIEF OPERATIVE NOTE Procedure | | Date: 09/02/2017 Author: AJAY GARCIA MD Attending Physician: Fidelina | | MD Cornelius Assistants: Vicente Garcia MD - resident Preoperative Diagnosis: s/p damage | | control laparotomy, second look Postoperative Diagnosis: 1. Splenic capsule | | laceration, 2. Small bowel mesenteric hematoma - stable, 3. Partial small bowel | | mesenteric root defect, 4. Partial sigmoid colon mesenteric defect, 4. 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 Abdomen was largely hemostatic aside from splenic capsule | | laceration. Small amount of bile-appearing staining at superior aspect of wound | | without identified bowel or liver injury Complications: None apparent Fluids: | | EBL: 20ml, UOP: 400ml and crystalloid: 300ml Specimens: None Drains: None | | Disposition: OR direct to ICU Rees: Will remain for TBD Diet: Strict NPO | | DVT prophylaxis: okay to begin POD 1 at 2100 Antibiotic Plan: None Glycemic | | control: None Dressing care: Wound VAC setting standard Provena suction | | Activity restrictions: Bedrest Initial surgical contact: INGRID Zhang | | Yolanda Garcia Surgery [phone] Pursuant to federal Medicare and Medicaid regulations I | | was present for the entire procedure. Fidelina Shields MD Therapeutic Program Worker | | Professor Department of Surgery Office: [phone] Pager: [phone] This has been | | electronically signed by Fidelina Shields MD, 09/02/2017 at 4:31 PM. | + + HEMATOCRIT (09/02/2017 11:15 AM) + + + + | Component | Value | Ref Range | + + + + | HEMATOCRIT | 30.9 (L) | 41.0 - 53.0 % | + + + + + + + | Specimen | Performing Laboratory | + + + | Blood | [facility], [address] [facility] [address] | | | [place] [address] | + + + INR (09/02/2017 9:39 AM) + + + + | Component | Value | Ref Range | + + + + | INR | 1.26 (H) | 0.90 - 1.20 INR | + + + + + + + | Specimen | Performing Laboratory | + + + | Blood | [facility], CORE [address] [facility] | | | [place] [address] | + + + + + | Narrative | + + | INR Therapeutic ranges for full anticoagulation: INR for Venous | | Thromboembolism (2.0 - 3.0) INR INR for most patients with | | mech. valves (2.5 - 3.5) INR | + + OPERATION RECORD (09/02/2017 6:51 AM) + ---+ | Procedure Note | + ---+ | Fidelina Shields MD - 09/02/2017 6:51 AM PDT Date of Service: 09/01/2017 | | Attending Surgeon: Fidelina Shields MD Therapeutic Program Worker(s): Haim Pearlta MD. | | Ajay Garcia MD. Preoperative Diagnosis: | | Hemorrhagic shock.Postoperative Diagnosis: Hemorrhagic shock.Procedures Performed: 1. | | Exploratory laparotomy.2. Mobilization of the sigmoid colon.3. 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 Control of splenic hemorrhage5. Placement of DME wound | | VAC.Indications: Berlin Temple is a 67-year-old male who was [...] 09/02/2017 06:17:53DT: 09/02/2017 | | 06:51:37Job #: [id number] to federal Medicare and Medicaid regulations I | | was present for the entire procedure.Fidelina Tenorio ProfessorDepartment of | | SurgeryOffice: [phone]: [id number] has been electronically signed by Fidelina Radford | MD Cornelius, 09/02/2017 at 10:40 AM. | | | | | |Pursuant to federal Medicare and Medicaid regulations I was present for the entire procedur e. | | | | | | | |Fidelina Shields MD | |Wireless Development Manager | |Department of Surgery | |Office: [phone] | |Pager: [phone] | | | |This has been electronically signed by Fidelina Shields MD, 09/02/2017 at 10:40 AM. | + ---+ BLOOD GASES, ARTERIAL - LAB (09/02/2017 5:16 AM) + + + + | Component | Value | Ref Range | + + + + | FIO2 ARTERIAL | 0.30 | | + + + + | PH ARTERIAL | 7.46 (H) | 7.37 - 7.44 | + + + + | PCO2 ARTERIAL | 38 | 32 - 43 mmHg | + + + + | PO2 ARTERIAL | 95 | 72 - 104 mmHg | + + + + | HCO3 ARTERIAL | 27 | 21 - 28 mmol/L | + + + + | TOTAL CO2 ARTERIAL | 28 | 22 - 28 mmol/L | + + + + | BASE EXCESS ARTERIAL | 3.1 (H) | -2.0 - 2.0 mmol/L | + + + + | O2 SAT, ARTERIAL | 97.7 | 92.0 - 98.0 % | + + + + | PAO2/FIO2 RATIO | 317 | >300 mmHg | + + + + + + + | Specimen | Performing Laboratory | + + + | Blood | [facility], CORE [address] [facility] | | | [place] [address] | + + + HEMATOCRIT (09/02/2017 5:16 AM) + + + + | Component | Value | Ref Range | + + + + | HEMATOCRIT | 34.0 (L) | 41.0 - 53.0 % | + + + + + + + | Specimen | Performing Laboratory | + + + | Blood | [facility], [address] [facility] | | | [place] [address] | + + + PRODUCT - RED CELLS LEUKOREDUCED (09/02/2017 2:53 AM) + + + + | Component | Value | Ref Range | + + + + | PRODUCT DESCRIPTION | -1 RED BLOOD CELL ADENINE-SALINE ADDED | | | | LEUKOCYTE | | + + + + | PRODUCT UNIT # | [id number] | | + + + + | UNIT ABO | O | | + + + + | UNIT RH | POS | | + + + + | STATUS OF UNIT | Presumed Transfused | | + + + + | EXPIRATION DATE | [id number] | | + + + + | BLOOD TYPE BARCODE | 5100 | | + + + + | BLOOD PRODUCT CODE | [id number] | | + + + + + + + | Specimen | Performing Laboratory | + + + | | [facility], TRANSFUSION MEDICINE [address] [facility] | | | [place] [address] | + + + CT PELVIS WO IV CONTRAST (09/02/2017 1:45 AM) + + + | Specimen | Performing Laboratory | + + + | | [facility] VOICE RECOGNITION | + + + + + | Narrative | + + | EXAM: CT of the pelvis without intravenous contrast HISTORY: Trauma. Concern | | for bladder injury. COMPARISON: CT 08/31/17 TECHNIQUE: CT of the pelvis without | | intravenous contrast. Coronal and sagittal reformats were created. FINDINGS: | | Lack of intravenous contrast limits evaluation of the solid organs and vasculature. | | Rees catheter is in place with radiodense contrast filling and distention of the | | bladder without evidence of extravasation or evident bladder injury. Postoperative | | changes of exploratory laparotomy are present with herniation of omentum and a few loops | | of small bowel at the ventral abdominal defect with overlying wound VAC in place. | | Locules of free intraperitoneal air are presumed postsurgical. There is decreased size | | of the previously seen anterior pelvic hematoma. Small amount of fluid layers throughout | | the pelvis. No loculated collection/abscess is evident. Redemonstration of left | | hemipelvis vertical shear fractures involving the superior and inferior pubic rami, | | pubic body and left sacral ala, as previously described. No new fracture is evident. | | Left femoral venous catheter noted. Soft tissue edema is noted. IMPRESSION: | | No bladder rupture. Postsurgical changes of exploratory laparotomy with herniation | | of small bowel loops and omentum at the peritoneal surgical site defect. Locules of free | | intraperitoneal air are presumed postsurgical. Left hemipelvis vertical shear | | fractures as previously described. I have personally reviewed the images and, if | | necessary, edited the report. I agree with the report as now presented. | + + + + | Procedure Note [...] limits evaluation of the solid organs and vasculature.Rees catheter is in place with | | [...] report as now presented. | + + CBC (HEMOGRAM) ONLY (09/01/2017 11:16 PM) + + + + | Component | Value | Ref Range | + + + + | WHITE CELL COUNT | 8.79 | 3.50 - 10.80 K/cu mm | + + + + | RED CELL COUNT | 3.55 (L) | 4.50 - 6.00 M/cu mm | + + + + | HEMOGLOBIN | 10.3 (L) | 13.5 - 17.5 g/dL | + + + + | HEMATOCRIT | 29.6 (L) | 41.0 - 53.0 % | + + + + | MCV | 83.4 | 80.0 - 96.0 fL | + + + + | MCHC | 34.8 | 33.0 - 35.5 g/dL | + + + + | RDW SD | 44.9 | 35.1 - 46.3 fL | + + + + | PLATELET COUNT | 89 (L) | 150 - 400 K/cu mm | + + + + | MPV | 9.5 (L) | 9.7 - 12.3 fL | + + + + | NRBC% | 0.0 | 0.0 - 0.3 % | + + + + | NRBC# | 0.00 | 0.00 - 0.02 K/cu mm | + + + + + + + | Specimen | Performing Laboratory | + + + | Blood | [facility], CORE [address] [facility] | | | [place] [address] | + + + RENAL FUNCTION SET (NA,K,CL,CO2,BUN,CREAT,GLUC,CA,PHOS,ALB ) (09/01/2017 11:16 PM) + + + + | Component | Value | Ref Range | + + + + | GLUCOSE, PLASMA | 111 (H) | 70 - 99 mg/dL | | (LAB) | | | + + + + | BUN, PLASMA (LAB) | 6 | 6 - 20 mg/dL | + + + + | CREATININE PLASMA | 0.57 (L) | 0.70 - 1.30 mg/dL | | (LAB) | | | + + + + | EGFR - | >60 | >60 mL/min | | GABONESE | | | + + + + | EGFR NON | >60 | >60 mL/min | | -GABONESE | | | + + + + | SODIUM, PLASMA (LAB) | 147 (H) | 136 - 145 mmol/L | + + + + | POTASSIUM, PLASMA | 3.5 | 3.4 - 5.0 mmol/L | | (LAB) | | | + + + + | CHLORIDE, PLASMA | 113 (H) | 97 - 108 mmol/L | | (LAB) | | | + + + + | TOTAL CO2, PLASMA | 29 | 21 - 32 mmol/L | | (LAB) | | | + + + + | CALCIUM, PLASMA | 7.3 (L) | 8.6 - 10.2 mg/dL | | (LAB) | | | + + + + | CALCIUM(ALB | 8.8 | 8.6 - 10.2 mg/dL | | CORRECTED) | | | + + + + | ALBUMIN, PLASMA | 2.1 (L) | 3.5 - 4.7 g/dL | | (LAB) | | | + + + + | PHOSPHORUS, PLASMA | 1.5 (L) | 2.4 - 4.7 mg/dL | | (LAB) | | | + + + + | POTASSIUM CMNT | No Hemo | | + + + + | ANION GAP | 5 | 4 - 11 mmol/L | + + + + | ANION GAP(ALB | 9 | 4 - 11 mmol/L | | CORRECTED) | | | + + + + + + + | Specimen | Performing Laboratory | + + + | Blood | [facility], CORE [address] [facility] | | | [place] [address] | + + + + + | Narrative | + + | GFR is estimated using the MDRD equation recommended by the National Kidney Disease | | Education Program. Estimated GFR Interpretive Information: <60 mL/min/1.73 sq | | m Chronic Kidney Disease <15 mL/min/1.73 sq | | m Kidney Failure Estimated GFR greater that 60 mL/min/1.73 | | sq m is of limited clinical value. The MDRD equation is not valid in the following | | situations: - Patients under 18 years of age - Severe malnutrition or obesity - | | Vegetarian diet - Rapidly changing kidney function - Amputees, paraplegics, or other | | muscle-wasting diseses | + + MAGNESIUM, PLASMA (09/01/2017 11:16 PM) + +-------+ + | Component | Value | Ref Range | + +-------+ + | MAGNESIUM,PLASMA | 1.6 | 1.6 - 2.6 mg/dL | + +-------+ + + + + | Specimen | Performing Laboratory | + + + | Blood | [facility], CORE [address] [place] [address] | | | [place] [address] | + + + + + | Narrative | + + | Reference range change effective 12/11/16. | + + CBC ONLY (09/01/2017 11:16 PM) + + + | Specimen | Performing Laboratory | + + + | Blood | | + + + + + | Narrative | + + | The following orders were created for panel order CBC ONLY. | | Procedure | | Abnormality Status | | --------- | | ------ CBC (HEMOGRAM) | | ONLY[[id number]] Abnormal Final | | result Please view results for these tests on the | | individual orders. | + + QUANTIFERON TB GOLD, BLOOD (09/01/2017 10:18 PM) + + + + | Component | Value | Ref Range | + + + + | QUANTIFERON TB GOLD | NegativeComment: INTERPRETIVE INFORMATION: | Negative | | | QuantiFERON-TB Gold In-TubeInterferon gamma | | | | release is measured for specimens from | | | | each of the three collection tubes. A | | | | qualitative result (Negative, Positive, or | | | | Indeterminate) is based on interpretation | | | | of the three values, NIL, MITOGEN minus NIL | | | | (MITOGEN-NIL), and TB minus NIL (TB-NIL). | | | | The NIL value represents nonspecific | | | | reactivity produced by the patient | | | | specimen. The MITOGEN-NIL value serves as | | | | the positive control for the patient | | | | specimen, demonstrating successful | | | | lymphocyte activity. The TB-NIL value | | | | represents lymphocyte reactivity | | | | specifically stimulated by the TB antigen. | | | | An overall Negative result does not | | | | completely rule out TB infection. A | | | | false-positive result in the absence of | | | | other clinical evidence of TB infection is | | | | not uncommon. Refer to: Updated Guidelines | | | | for Using Interferon Gamma Release Assays | | | | to Detect Mycobacterium tuberculosis | | | | Infection --- [place], 2009 | | | | (http://www.cdc.gov/mmwr/preview/mmwrhtml/r | | | | [email or web address].htm), for information concerning | | | | test performance in low-prevalence | | | | populations and use in occupational | | | | screening. | | + + + + | NIL | 0.05Comment: Performed by [facility] | IU/mL | | | [employer], | | | | [address], | | | | [place] [address] | | | | [phone] | | | | [email or web address], Gui Ervin MD - | | | | Lab. Director | | + + + + | TB AG-NIL | 0.26 | 0.00 - 0.34 IU/mL | + + + + | MITOGEN-NIL | 9.35 | IU/mL | + + + + + + + | Specimen | Performing Laboratory | + + + | Blood | [facility] [place] [address] [place], [place] | | | [address] | + + + LACTATE (09/01/2017 8:18 PM) + +-------+ + | Component | Value | Ref Range | + +-------+ + | LACTATE | 1.6 | mmol/L | + +-------+ + + + + | Specimen | Performing Laboratory | + + + | Blood | [facility], CORE [address] | | | [place] [address] | + + + + + | Narrative | + + | Reference Range: Venous blood:0.5 - 2.2 mmol/L Critical >= 4.0 mmol/L | | Arterial blood:0.5 - 1.6 mmol/L Critical >= 4.0 mmol/L | + + BLOOD GASES, ARTERIAL - LAB (09/01/2017 8:18 PM) + + + + | Component | Value | Ref Range | + + + + | FIO2 ARTERIAL | 0.70 | | + + + + | PH ARTERIAL | 7.41 | 7.37 - 7.44 | + + + + | PCO2 ARTERIAL | 46 (H) | 32 - 43 mmHg | + + + + | PO2 ARTERIAL | 191 (H) | 72 - 104 mmHg | + + + + | HCO3 ARTERIAL | 29 (H) | 21 - 28 mmol/L | + + + + | TOTAL CO2 ARTERIAL | 30 (H) | 22 - 28 mmol/L | + + + + | BASE EXCESS ARTERIAL | 3.8 (H) | -2.0 - 2.0 mmol/L | + + + + | O2 SAT, ARTERIAL | 99.4 (H) | 92.0 - 98.0 % | + + + + | PAO2/FIO2 RATIO | 273 (L) | >300 mmHg | + + + + + + + | Specimen | Performing Laboratory | + + + | Blood | [facility], CORE [address] [facility] | | | [place] [address] | + + + X-RAY KNEE 2 VIEWS LEFT (09/01/2017 7:48 PM) + + + | Specimen | Performing Laboratory | + + + | | [facility] | + + + + + | Narrative | + + | STUDY: KNEE 2 VIEWS LEFT HISTORY: Pain. COMPARISON: None. FINDINGS: | | No evidence of acute fracture or dislocation. Partially visualized distal femoral | | fixation hardware which appears intact. No significant knee joint effusion. The bones | | are diffusely osteopenic. There is a region of nonaggressive sclerosis along the | | medial aspect of the proximal tibial metadiaphysis which may be remote posttraumatic in | | nature or represent the sequela of a fibro-osseous process. IMPRESSION: No | | acute osseous abnormalities. I have personally reviewed the images and, if | | necessary, edited the report. I agree with the report as now presented. | + + + + | Procedure Note | + + | 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, [employer] Res In Interface - 09/02/2017 8:55 AM [...] report as now presented. | + + X-RAY PORTABLE CHEST 1 VIEW (09/01/2017 6:14 PM) + + + | Specimen | Performing Laboratory | + + + | | [facility] VOICE RECOGNITION | + + + + + | Narrative | + + | EXAM: UT CHEST 1 VIEW HISTORY: Hypoxemia COMPARISON: 09/01/17 FINDINGS: | | The endotracheal tube, gastric tube, and left thoracostomy are unchanged. A radiopaque | | strip from a lap sponge is in the left upper quadrant. Accounting for rotation, the | | mediastinum is unchanged. There is new right perihilar consolidation and a new right | | pleural effusion. There is no discernible pneumothorax. Multiple rib fractures are | | better evaluated on the recent CT. There is a chronic left humeral deformity. | | IMPRESSION: New right perihilar consolidation. Considering the rapid onset and | | volume loss, this likely represents atelectasis. New small right pleural effusion. | | Radiopaque strip in the left upper quadrant is consistent with documented abdominal | | packing with lap sponges. I have personally reviewed the images and, if | | necessary, edited the report. I agree with the report as now presented. | + + + + | Procedure Note | + + | 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, [employer] Res In Interface - 09/02/2017 10:34 AM PDT EXAM: UT CHEST 1 | | VIEW HISTORY: HypoxemiaCOMPARISON: [...] report as now presented. | + + BLOOD GASES, ARTERIAL - LAB (09/01/2017 5:43 PM) + + + + | Component | Value | Ref Range | + + + + | FIO2 ARTERIAL | 0.70 | | + + + + | PH ARTERIAL | 7.29 (L) | 7.37 - 7.44 | + + + + | PCO2 ARTERIAL | 60 (H) | 32 - 43 mmHg | + + + + | PO2 ARTERIAL | 95 | 72 - 104 mmHg | + + + + | HCO3 ARTERIAL | 28 | 21 - 28 mmol/L | + + + + | TOTAL CO2 ARTERIAL | 30 (H) | 22 - 28 mmol/L | + + + + | BASE EXCESS ARTERIAL | 1.1 | -2.0 - 2.0 mmol/L | + + + + | O2 SAT, ARTERIAL | 97.5 | 92.0 - 98.0 % | + + + + | PAO2/FIO2 RATIO | 136 (L) | >300 mmHg | + + + + + + + | Specimen | Performing Laboratory | + + + | Blood | [facility], CORE [address] | | | [place] [address] | + + + HEMATOCRIT (09/01/2017 5:43 PM) + + + + | Component | Value | Ref Range | + + + + | HEMATOCRIT | 34.1 (L) | 41.0 - 53.0 % | + + + + + + + | Specimen | Performing Laboratory | + + + | Blood | [facility], CORE [address] | | | [place] [address] | + + + PRODUCT - PLATELET PHERESIS LEUKOREDUCED (09/01/2017 4:42 PM) + + + + | Component | Value | Ref Range | + + + + | PRODUCT DESCRIPTION | PLATELETS PHERESIS LEUKOCYTE REDUCED | | + + + + | PRODUCT UNIT # | [id number] | | + + + + | UNIT ABO | O | | + + + + | UNIT RH | POS | | + + + + | STATUS OF UNIT | Presumed Transfused | | + + + + | EXPIRATION DATE | [id number] | | + + + + | BLOOD TYPE BARCODE | | | + + + + | BLOOD PRODUCT CODE | [id number] | | + + + + + + + | Specimen | Performing Laboratory | + + + | | [facility], TRANSFUSION MEDICINE [address] [place] [address] | | | [place] [address] | + + + BLOOD GASES, ARTERIAL - LAB (09/01/2017 4:19 PM) + + + + | Component | Value | Ref Range | + + + + | FIO2 ARTERIAL | 0.50Comment: temperature 36.4 | | + + + + | PH ARTERIAL | 7.38 | 7.37 - 7.44 | + + + + | PCO2 ARTERIAL | 48 (H) | 32 - 43 mmHg | + + + + | PO2 ARTERIAL | 61 (L) | 72 - 104 mmHg | + + + + | HCO3 ARTERIAL | 28 | 21 - 28 mmol/L | + + + + | TOTAL CO2 ARTERIAL | 29 (H) | 22 - 28 mmol/L | + + + + | BASE EXCESS ARTERIAL | 2.6 (H) | -2.0 - 2.0 mmol/L | + + + + | O2 SAT, ARTERIAL | 93.4 | 92.0 - 98.0 % | + + + + | PAO2/FIO2 RATIO | 122 (L) | >300 mmHg | + + + + + + + | Specimen | Performing Laboratory | + + + | Blood | [facility], CORE [address] | | | [place] [address] | + + + LACTATE (09/01/2017 4:19 PM) + +-------+ + | Component | Value | Ref Range | + +-------+ + | LACTATE | 1.6 | mmol/L | + +-------+ + + + + | Specimen | Performing Laboratory | + + + | Blood | [facility], CORE [address] [place] [address] | | | [place] [address] | + + + + + | Narrative | + + | Reference Range: Venous blood:0.5 - 2.2 mmol/L Critical >= 4.0 mmol/L | | Arterial blood:0.5 - 1.6 mmol/L Critical >= 4.0 mmol/L | + + CBC (HEMOGRAM) ONLY (09/01/2017 3:12 PM) + + + + | Component | Value | Ref Range | + + + + | WHITE CELL COUNT | 7.95 | 3.50 - 10.80 K/cu mm | + + + + | RED CELL COUNT | 3.82 (L) | 4.50 - 6.00 M/cu mm | + + + + | HEMOGLOBIN | 11.1 (L) | 13.5 - 17.5 g/dL | + + + + | HEMATOCRIT | 32.7 (L) | 41.0 - 53.0 % | + + + + | MCV | 85.6 | 80.0 - 96.0 fL | + + + + | MCHC | 33.9 | 33.0 - 35.5 g/dL | + + + + | RDW SD | 45.8 | 35.1 - 46.3 fL | + + + + | PLATELET COUNT | 79 (L) | 150 - 400 K/cu mm | + + + + | MPV | 9.8 | 9.7 - 12.3 fL | + + + + | NRBC% | 0.0 | 0.0 - 0.3 % | + + + + | NRBC# | 0.00 | 0.00 - 0.02 K/cu mm | + + + + + + + | Specimen | Performing Laboratory | + + + | Blood | [facility], CORE [address] | | | [place] [address] | + + + COMPLETE METABOLIC SET (NA,K,CL,CO2,BUN,CREAT,GLUC,CA,AST,ALT,BILI TOTAL,ALK PHOS,ALB,PROT TOTAL) (09/01/2017 3:12 PM) + + + + | Component | Value | Ref Range | + + + + | GLUCOSE, PLASMA | 126 (H) | 70 - 99 mg/dL | | (LAB) | | | + + + + | BUN, PLASMA (LAB) | 7 | 6 - 20 mg/dL | + + + + | CREATININE PLASMA | 0.55 (L) | 0.70 - 1.30 mg/dL | | (LAB) | | | + + + + | EGFR - | >60 | >60 mL/min | | GABONESE | | | + + + + | EGFR NON | >60 | >60 mL/min | | -GABONESE | | | + + + + | SODIUM, PLASMA (LAB) | 145 | 136 - 145 mmol/L | + + + + | POTASSIUM, PLASMA | 3.7 | 3.4 - 5.0 mmol/L | | (LAB) | | | + + + + | CHLORIDE, PLASMA | 112 (H) | 97 - 108 mmol/L | | (LAB) | | | + + + + | TOTAL CO2, PLASMA | 28 | 21 - 32 mmol/L | | (LAB) | | | + + + + | CALCIUM, PLASMA | 7.6 (L) | 8.6 - 10.2 mg/dL | | (LAB) | | | + + + + | CALCIUM(ALB | 9.0 | 8.6 - 10.2 mg/dL | | CORRECTED) | | | + + + + | BILIRUBIN TOTAL | 1.2 | 0.3 - 1.2 mg/dL | + + + + | TOTAL PROTEIN, | 4.7 (L) | 6.4 - 8.2 g/dL | | PLASMA (LAB) | | | + + + + | ALBUMIN, PLASMA | 2.2 (L) | 3.5 - 4.7 g/dL | | (LAB) | | | + + + + | ALK PHOS | 101 | 56 - 119 U/L | + + + + | AST(SGOT) | 39 | <=41 U/L | + + + + | ALT (SGPT) | 30 | <=60 U/L | + + + + | ANION GAP | 5 | 4 - 11 mmol/L | + + + + | ANION GAP(ALB | 9 | 4 - 11 mmol/L | | CORRECTED) | | | + + + + | POTASSIUM CMNT | No Hemo | | + + + + | BILI T CMNT | No Hemo | | + + + + | AST CMNT | No Hemo | | + + + + + + + | Specimen | Performing Laboratory | + + + | Blood | [facility] [place] [address] | | | [place] [address] | + + + + + | Narrative | + + | GFR is estimated using the MDRD equation recommended by the National Kidney Disease | | Education Program. Estimated GFR Interpretive Information: <60 mL/min/1.73 sq | | m Chronic Kidney Disease <15 mL/min/1.73 sq | | m Kidney Failure Estimated GFR greater that 60 mL/min/1.73 | | sq m is of limited clinical value. The MDRD equation is not valid in the following | | situations: - Patients under 18 years of age - Severe malnutrition or obesity - | | Vegetarian diet - Rapidly changing kidney function - Amputees, paraplegics, or other | | muscle-wasting diseses | + + CBC ONLY (09/01/2017 3:12 PM) + + + | Specimen | Performing Laboratory | + + + | Blood | | + + + + + | Narrative | + + | The following orders were created for panel order CBC ONLY. | | Procedure | | Abnormality Status | | --------- | | ------ CBC (HEMOGRAM) | | ONLY[[id number]] Abnormal Final | | result Please view results for these tests on the | | individual orders. | + + LACTATE (09/01/2017 3:12 PM) + + + + | Component | Value | Ref Range | + + + + | LACTATE | Comment: This is a corrected result. | mmol/L | | | Previous result was 1.9 mmol/L on 09/01/2017 | | | | at 1531 PDT. | | + + + + + + + | Specimen | Performing Laboratory | + + + | Blood | [facility], CORE [address] [place] [address] | | | [place] [address] | + + + + + | Narrative | + + | Cap came off in bag before received. Sample rejected due to air contamination. | | Crediting patient. Reference Range: Venous blood:0.5 - 2.2 mmol/L Critical >= 4.0 | | mmol/L Arterial blood:0.5 - 1.6 mmol/L Critical >= 4.0 mmol/L | + + CALCIUM, IONIZED, WHOLE BLOOD (09/01/2017 3:12 PM) + + + + | Component | Value | Ref Range | + + + + | MAHOGANY ICA, WHOLE BLD | Comment: This is a corrected result. | 1.14 - 1.32 mmol/L | | | Previous result was 1.19 mmol/L on 09/01/2017 | | | | at 1531 PDT. | | + + + + | PH, WHOLE BLOOD | Comment: This is a corrected result. | | | | Previous result was 7.41 on 09/01/2017 at | | | | 1531 PDT. | | + + + + | ICA, CORRECTED TO PH | Comment: This is a corrected result. | 1.14 - 1.28 mmol/L | | 7.4 | Previous result was 1.20 mmol/L on 09/01/2017 | | | | at 1531 PDT. | | + + + + + + + | Specimen | Performing Laboratory | + + + | Blood | [facility], CORE [address] | | | [place] [address] | + + + + + | Narrative | + + | Cap came off in bag before received. Sample rejected due to air contamination. | | Crediting patient. | + + IR EMBOLIZATION OTHER (09/01/2017 2:06 PM) + + + | Specimen | Performing Laboratory | + + + | | [facility] VOICE RECOGNITION | + + + + + | Narrative | + + | Procedure: Selective visceral arteriography. IR Attending: Marquez Hubbard MD, | | PhD IR Fellow: George Shah MD VS Fellow: Trey Thomas MD | | Preoperative diagnosis: pelvic trauma, concern for continued bleeding Postoperative | | diagnosis: same, no bleeding/extravasation identified. Operations: Operation | | 1. Access to the right common femoral artery. Operation 2. Selective | | catheterization of the distal abdominal aorta. Digital subtraction arteriography (DSA) | | evaluation of the pelvic vascular supply. Operation 3. Selective catheterization | | of the left internal iliac artery and DSA evaluation of the pelvic vascular supply in | | multiple oblique projections. Operation 4. Selective catheterization of the right | | internal iliac artery and DSA evaluation. Operation 5. Embolization of the | | distal branch vessel feeding the hepatic lesion. Operation 6. Post embolization | | DSA evaluation. Operation 7. Hemostasis obtained via manual compression. | | Indications: trauma Anesthesia was utilized for this case in conjunction with | | trauma surgery and the pelvic surgery/exploration/packing. Please see their records | | for full medication list. Contrast: 80 mL intra-arterial, Omnipaque 30 | | Complications: None immediate. Fluoroscopy time: 22 min and 6 sec Procedure: | | The attending physician was present for the entire procedure. Written informed consent | | was obtained in a PARQ conference with the patient. The patient was prepped and | | draped in the usual manner. After trauma surgery had completed the abdominal/pelvic | | surgery and packed/closed the abdomen, the VS surgery and IR fellows were included in | | the procedure. A 21G needle was inserted into the right common femoral artery. Using | | Seldinger technique, the micropuncture access set was exchanged for a GotaCopy | | wire. Under fluoroscopic guidance, a 5 Fr flush catheter was used to evaluate the | | distal abdominal aorta and pelvic vasculature. A wire and catheter were then used to | | select the left common and internal iliac arteries from the right TUFT MACHINE OPERATOR approach. DSA | | was performed from the left internal iliac artery in multiple magnified oblique | | projections. The same catheter and wire were then used to select the right internal | | iliac artery and repeat DSA was performed. The catheters and wires were then removed | | and manual compression was applied to the puncture site until hemostasis was | | achieved. Findings: The distal abdominal aortogram demonstrates a relatively | | normal course and caliber of the pelvic vasculature. Selective DSA of the left | | internal iliac artery from the right common femoral access SMA evaluation demonstrates | | somewhat attenuated vasculature adjacent to the pelvic ring fractures. There are two | | areas of focal "delayed" contrast identified adjacent to the fracture that likely | | represent marrow perfusional changes, with no clear evidence of contrast | | extravasation. Similarly, the right internal iliac artery demonstrates a normal | | course and caliber. No areas of extravasation were identified. Contrast was seen | | flowing into the bladder from the adjacent ureter. Impression: 1. The patient | | has classic hepatic arterial anatomy. 2. The portal vein is patent. | | 3. Uneventful selective pelvic arteriogram with no evidence of extravasation. Post | | trauma changes in the vascularity are identified. PLAN: Admit for overnight | | observation, pain, and nausea control. Continue bleeding surveillance as planned. | | I have personally reviewed the images and, if necessary, edited the report. I | | agree with the report as now presented. | + + + + | Procedure Note [...] micropuncture access set was exchanged for a [employer] Systemsson wire. Under fluoroscopic guidance, | | a 5 Fr flush catheter was used to evaluate the distal abdominal aorta and pelvic | | vasculature. A wire and catheter were then used to select the left common and internal | | iliac arteries from the right TUFT MACHINE OPERATOR approach. DSA was performed from the left [...] micropuncture access set was exchanged for a GotaCopy wire. Under fluoroscopic guidance, a 5 Fr flush catheter was used | |to evaluate the distal abdominal aorta and pelvic vasculature. A wire and catheter were th en used to select the left common and internal iliac arteries from the right TUFT MACHINE OPERATOR approach. DSA was performed from the left [...] report as now presented. | + + ABG-FULL ABL, POC (09/01/2017 1:36 PM) + + + + | Component | Value | Ref Range | + + + + | PH ARTERIAL, POC | 7.41 | 7.37 - 7.44 | + + + + | PO2 ARTERIAL, POC | 96 | 72 - 104 mmHg | + + + + | PCO2 ARTERIAL, POC | 43 | 32 - 43 mmHg | + + + + | TOTAL HEMOGLOBIN, | 10.0 (L) | 13.5 - 17.5 g/dL | | POC | | | + + + + | O2 SAT ARTERIAL, POC | 97.8 | 92.0 - 98.0 % | + + + + | OXYHEMOGLOBIN, POC | 95.6 | 94.0 - 100 % | + + + + | HEMATOCRIT, POC | 30.7 (L) | 41.0 - 53.0 % | + + + + | POTASSIUM, POC | 3.8 | 3.4 - 5.0 mmol/L | + + + + | SODIUM, POC | 141 | 134 - 143 mmol/L | + + + + | MAHOGANY IONIZED CA, POC | 1.17 | 1.14 - 1.32 mmol/L | + + + + | CHLORIDE, POC | 108 | 97 - 108 mmol/L | + + + + | GLUCOSE, POC | 126 (H) | 70 - 99 mg/dL | + + + + | HCO3 ARTERIAL, POC | 27.3 | 21 - 28 mmol/L | + + + + | BASE EXCESS | 2.7 | | | ARTERIAL, POC | | | + + + + | LACTATE ARTERIAL, | 2.5 (H) | 0.5 - 1.6 mmol/L | | POC | | | + + + + | METHEMOGLOBIN, POC | 1.0 | 0.0 - 1.9 % | + + + + | PAT TEMP ART, POC | 37.0 | | + + + + + + + | Specimen | Performing Laboratory | + + + | Blood | [facility], POINT OF CARE TESTS [address] | | | [place] [address] | + + + EXPLORATORY LAPAROTOMY (09/01/2017 12:31 PM) + + | Narrative | + + | Fidelina Shields MD 09/01/2017 12:42 PM BRIEF OPERATIVE NOTE: | | Date: 09/01/2017 Author: Fidelina Shields MD Attending Physician: | | Fidelina Shields MD Therapeutic Program Worker(s): Haim Peralta MD, Vicente Garcia MD, Glo | | Mando MS3 Prior to the beginning of the procedure the team paused to | | verify the patient's identity, as well as the procedure to be performed and the | | correct side/site. All equipment required was ready and available. The patient was | | positioned appropriately. 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 All hemostatic, no e/o bowel | | injury. Mesenteric bruising throughout the jejunum. Avulsion of the capsule of the | | inferior pole of the spleen - packed with surgicel and three laparotomy pads | | Estimated Blood Loss: 200ml Fluids: 1800ml crystalloid, EBL 500ml, urine 150ml | | Specimens: none Complications: none immediate Drains: none Plan: pelvic | | angiography, temporary abdominal closure, CT cystogram to definitively rule out | | bladder injury, plan takeback in the am with likely closure. Full operative note | | will be dictated by Dr. Garcia. Counts were correct at the conclusion of the case. | | Fidelina Shields MD Wireless Development Manager Division of Trauma, Critical Care and | | Acute Care Surgery Office: [phone] Pager: [phone] | + + ABG-FULL ABL, POC (09/01/2017 12:19 PM) + + + + | Component | Value | Ref Range | + + + + | PH ARTERIAL, POC | 7.40 | 7.37 - 7.44 | + + + + | PO2 ARTERIAL, POC | 215 (H) | 72 - 104 mmHg | + + + + | PCO2 ARTERIAL, POC | 45 (H) | 32 - 43 mmHg | + + + + | TOTAL HEMOGLOBIN, | 11.2 (L) | 13.5 - 17.5 g/dL | | POC | | | + + + + | O2 SAT ARTERIAL, POC | 99.5 (H) | 92.0 - 98.0 % | + + + + | OXYHEMOGLOBIN, POC | 97.8 | 94.0 - 100 % | + + + + | HEMATOCRIT, POC | 34.3 (L) | 41.0 - 53.0 % | + + + + | POTASSIUM, POC | 3.2 (L) | 3.4 - 5.0 mmol/L | + + + + | SODIUM, POC | 143 | 134 - 143 mmol/L | + + + + | MAHOGANY IONIZED CA, POC | 1.12 (L) | 1.14 - 1.32 mmol/L | + + + + | CHLORIDE, POC | 108 | 97 - 108 mmol/L | + + + + | GLUCOSE, POC | 147 (H) | 70 - 99 mg/dL | + + + + | HCO3 ARTERIAL, POC | 27.8 | 21 - 28 mmol/L | + + + + | BASE EXCESS | 2.9 | | | ARTERIAL, POC | | | + + + + | LACTATE ARTERIAL, | 2.1 (H) | 0.5 - 1.6 mmol/L | | POC | | | + + + + | METHEMOGLOBIN, POC | 0.2 | 0.0 - 1.9 % | + + + + | PAT TEMP ART, POC | 37.0 | | + + + + + + + | Specimen | Performing Laboratory | + + + | Blood | [facility] [address] | | | [place] [address] | + + + CREATININE, BODY FLUID (09/01/2017 11:52 AM) + +-------+ + | Component | Value | Ref Range | + +-------+ + | CREATININE BODY | 0.60 | mg/dL | | FLUID | | | + +-------+ + + + + | Specimen | Performing Laboratory | + + + | Fluid - Abdominal | [facility], CORE [address] | | | [place] [address] | + + + + + | Narrative | + + | exploratory laparotomy | + + ABG-FULL ABL, POC (09/01/2017 11:04 AM) + + + + | Component | Value | Ref Range | + + + + | PH ARTERIAL, POC | 7.35 (L) | 7.37 - 7.44 | + + + + | PO2 ARTERIAL, POC | 126 (H) | 72 - 104 mmHg | + + + + | PCO2 ARTERIAL, POC | 54 (H) | 32 - 43 mmHg | + + + + | TOTAL HEMOGLOBIN, | 11.8 (L) | 13.5 - 17.5 g/dL | | POC | | | + + + + | O2 SAT ARTERIAL, POC | 98.3 (H) | 92.0 - 98.0 % | + + + + | OXYHEMOGLOBIN, POC | 96.3 | 94.0 - 100 % | + + + + | HEMATOCRIT, POC | 36.2 (L) | 41.0 - 53.0 % | + + + + | POTASSIUM, POC | 3.5 | 3.4 - 5.0 mmol/L | + + + + | SODIUM, POC | 144 (H) | 134 - 143 mmol/L | + + + + | MAHOGANY IONIZED CA, POC | 1.09 (L) | 1.14 - 1.32 mmol/L | + + + + | CHLORIDE, POC | 106 | 97 - 108 mmol/L | + + + + | GLUCOSE, POC | 140 (H) | 70 - 99 mg/dL | + + + + | HCO3 ARTERIAL, POC | 29.5 (H) | 21 - 28 mmol/L | + + + + | BASE EXCESS | 3.9 | | | ARTERIAL, POC | | | + + + + | LACTATE ARTERIAL, | 1.5 | 0.5 - 1.6 mmol/L | | POC | | | + + + + | METHEMOGLOBIN, POC | 1.0 | 0.0 - 1.9 % | + + + + | PAT TEMP ART, POC | 37.0 | | + + + + + + + | Specimen | Performing Laboratory | + + + | Blood | [facility], POINT OF CARE TESTS [address] | | | [place] [address] | + + + PRODUCT - PLATELET PHERESIS LEUKOREDUCED (09/01/2017 9:56 AM) + + + + | Component | Value | Ref Range | + + + + | PRODUCT DESCRIPTION | PLATELETS PHERESIS LEUKOCYTES REDUCED | | + + + + | PRODUCT UNIT # | [id number] | | + + + + | UNIT ABO | A | | + + + + | UNIT RH | POS | | + + + + | STATUS OF UNIT | Returned to Blood Bank | | + + + + | EXPIRATION DATE | [id number] | | + + + + | BLOOD TYPE BARCODE | 6200 | | + + + + | BLOOD PRODUCT CODE | [id number] | | + + + + + + + | Specimen | Performing Laboratory | + + + | | [facility], TRANSFUSION MEDICINE [address] | | | [place] [address] | + + + PRODUCT - FRESH FROZEN PLASMA (09/01/2017 9:53 AM) + + + + | Component | Value | Ref Range | + + + + | PRODUCT DESCRIPTION | LIQUID PLASMA, IRRADIATED | | + + + + | PRODUCT UNIT # | [id number] | | + + + + | UNIT ABO | A | | + + + + | UNIT RH | POS | | + + + + | STATUS OF UNIT | Returned to Blood Bank | | + + + + | EXPIRATION DATE | [id number] | | + + + + | BLOOD TYPE BARCODE | 6200 | | + + + + | BLOOD PRODUCT CODE | [id number] | | + + + + + + + | Specimen | Performing Laboratory | + + + | | [facility] TRANSFUSION MEDICINE [id number] | | | [place] [address] | + + + PRODUCT - FRESH FROZEN PLASMA (09/01/2017 9:53 AM) + + + + | Component | Value | Ref Range | + + + + | PRODUCT DESCRIPTION | LIQUID PLASMA, IRRADIATED | | + + + + | PRODUCT UNIT # | [id number] | | + + + + | UNIT ABO | A | | + + + + | UNIT RH | POS | | + + + + | STATUS OF UNIT | Returned to Blood Bank | | + + + + | EXPIRATION DATE | [id number] | | + + + + | BLOOD TYPE BARCODE | 6200 | | + + + + | BLOOD PRODUCT CODE | [id number] | | + + + + + + + | Specimen | Performing Laboratory | + + + | | [facility], TRANSFUSION MEDICINE [address] | | | [place] [address] | + + + PRODUCT - RED CELLS LEUKOREDUCED (09/01/2017 9:49 AM) + + + + | Component | Value | Ref Range | + + + + | PRODUCT DESCRIPTION | -3 RED BLOOD CELLS ADENINE-SALINE ADDED | | | | LEUKOCY | | + + + + | PRODUCT UNIT # | [id number] | | + + + + | UNIT ABO | O | | + + + + | UNIT RH | POS | | + + + + | STATUS OF UNIT | Returned to Blood Bank | | + + + + | EXPIRATION DATE | [id number] | | + + + + | BLOOD TYPE BARCODE | 5100 | | + + + + | BLOOD PRODUCT CODE | [id number] | | + + + + + + + | Specimen | Performing Laboratory | + + + | | [facility], TRANSFUSION MEDICINE [address] [place] [address] | | | [place] [address] | + + + PRODUCT - RED CELLS LEUKOREDUCED (09/01/2017 9:49 AM) + + + + | Component | Value | Ref Range | + + + + | PRODUCT DESCRIPTION | -3 RED BLOOD CELLS ADENINE-SALINE ADDED | | | | LEUKOCY | | + + + + | PRODUCT UNIT # | [id number] | | + + + + | UNIT ABO | O | | + + + + | UNIT RH | POS | | + + + + | STATUS OF UNIT | Returned to Blood Bank | | + + + + | EXPIRATION DATE | [id number] | | + + + + | BLOOD TYPE BARCODE | 5100 | | + + + + | BLOOD PRODUCT CODE | [id number] | | + + + + + + + | Specimen | Performing Laboratory | + + + | | [facility], TRANSFUSION MEDICINE [address] | | | [place] [address] | + + + PRODUCT - RED CELLS LEUKOREDUCED (09/01/2017 9:49 AM) + + + + | Component | Value | Ref Range | + + + + | PRODUCT DESCRIPTION | -1 RED BLOOD CELL ADENINE-SALINE ADDED | | | | LEUKOCYTE | | + + + + | PRODUCT UNIT # | [id number] | | + + + + | UNIT ABO | O | | + + + + | UNIT RH | POS | | + + + + | STATUS OF UNIT | Returned to Blood Bank | | + + + + | EXPIRATION DATE | [id number] | | + + + + | BLOOD TYPE BARCODE | 5100 | | + + + + | BLOOD PRODUCT CODE | [id number] | | + + + + + + + | Specimen | Performing Laboratory | + + + | | [facility], TRANSFUSION MEDICINE [address] | | | [place] [address] | + + + PRODUCT - RED CELLS LEUKOREDUCED (09/01/2017 9:49 AM) + + + + | Component | Value | Ref Range | + + + + | PRODUCT DESCRIPTION | -1 RED BLOOD CELL ADENINE-SALINE ADDED | | | | LEUKOCYTE | | + + + + | PRODUCT UNIT # | [id number] | | + + + + | UNIT ABO | O | | + + + + | UNIT RH | POS | | + + + + | STATUS OF UNIT | Returned to Blood Bank | | + + + + | EXPIRATION DATE | [id number] | | + + + + | BLOOD TYPE BARCODE | 5100 | | + + + + | BLOOD PRODUCT CODE | [id number] | | + + + + + + + | Specimen | Performing Laboratory | + + + | | [facility], TRANSFUSION MEDICINE [address] [place] [address] | | | [place] [address] | + + + PRODUCT - RED CELLS LEUKOREDUCED (09/01/2017 9:49 AM) + + + + | Component | Value | Ref Range | + + + + | PRODUCT DESCRIPTION | -1 RED BLOOD CELL ADENINE-SALINE ADDED | | | | LEUKOCYTE | | + + + + | PRODUCT UNIT # | [id number] | | + + + + | UNIT ABO | O | | + + + + | UNIT RH | POS | | + + + + | STATUS OF UNIT | Returned to Blood Bank | | + + + + | EXPIRATION DATE | [id number] | | + + + + | BLOOD TYPE BARCODE | 5100 | | + + + + | BLOOD PRODUCT CODE | [id number] | | + + + + + + + | Specimen | Performing Laboratory | + + + | | [facility], TRANSFUSION MEDICINE [address] | | | [place] [address] | + + + PRODUCT - RED CELLS LEUKOREDUCED (09/01/2017 9:49 AM) + + + + | Component | Value | Ref Range | + + + + | PRODUCT DESCRIPTION | -1 RED BLOOD CELL ADENINE-SALINE ADDED | | | | LEUKOCYTE | | + + + + | PRODUCT UNIT # | [id number] | | + + + + | UNIT ABO | O | | + + + + | UNIT RH | POS | | + + + + | STATUS OF UNIT | Returned to Blood Bank | | + + + + | EXPIRATION DATE | [id number] | | + + + + | BLOOD TYPE BARCODE | 5100 | | + + + + | BLOOD PRODUCT CODE | [id number] | | + + + + + + + | Specimen | Performing Laboratory | + + + | | [facility], TRANSFUSION MEDICINE [address] | | | [place] [address] | + + + PRODUCT - FRESH FROZEN PLASMA (09/01/2017 9:46 AM) + + + + | Component | Value | Ref Range | + + + + | PRODUCT DESCRIPTION | PLASMA THAWED | | + + + + | PRODUCT UNIT # | [id number] | | + + + + | UNIT ABO | B | | + + + + | UNIT RH | POS | | + + + + | STATUS OF UNIT | Returned to Blood Bank | | + + + + | EXPIRATION DATE | [id number] | | + + + + | BLOOD TYPE BARCODE | 7300 | | + + + + | BLOOD PRODUCT CODE | [id number] | | + + + + + + + | Specimen | Performing Laboratory | + + + | | [facility], TRANSFUSION MEDICINE [address] | | | [place] [address] | + + + PRODUCT - FRESH FROZEN PLASMA (09/01/2017 9:46 AM) + + + + | Component | Value | Ref Range | + + + + | PRODUCT DESCRIPTION | PLASMA THAWED | | + + + + | PRODUCT UNIT # | [id number] | | + + + + | UNIT ABO | B | | + + + + | UNIT RH | POS | | + + + + | STATUS OF UNIT | Returned to Blood Bank | | + + + + | EXPIRATION DATE | [id number] | | + + + + | BLOOD TYPE BARCODE | 7300 | | + + + + | BLOOD PRODUCT CODE | [id number] | | + + + + + + + | Specimen | Performing Laboratory | + + + | | [facility], TRANSFUSION MEDICINE [address] | | | [place] [address] | + + + PRODUCT - FRESH FROZEN PLASMA (09/01/2017 9:46 AM) + + + + | Component | Value | Ref Range | + + + + | PRODUCT DESCRIPTION | LIQUID PLASMA, IRRADIATED | | + + + + | PRODUCT UNIT # | [id number] | | + + + + | UNIT ABO | A | | + + + + | UNIT RH | POS | | + + + + | STATUS OF UNIT | Returned to Blood Bank | | + + + + | EXPIRATION DATE | [id number] | | + + + + | BLOOD TYPE BARCODE | 6200 | | + + + + | BLOOD PRODUCT CODE | [id number] | | + + + + + + + | Specimen | Performing Laboratory | + + + | | [facility], TRANSFUSION MEDICINE [address] | | | [place] [address] | + + + PRODUCT - FRESH FROZEN PLASMA (09/01/2017 9:46 AM) + + + + | Component | Value | Ref Range | + + + + | PRODUCT DESCRIPTION | LIQUID PLASMA, IRRADIATED | | + + + + | PRODUCT UNIT # | [id number] | | + + + + | UNIT ABO | A | | + + + + | UNIT RH | POS | | + + + + | STATUS OF UNIT | Returned to Blood Bank | | + + + + | EXPIRATION DATE | [id number] | | + + + + | BLOOD TYPE BARCODE | 6200 | | + + + + | BLOOD PRODUCT CODE | [id number] | | + + + + + + + | Specimen | Performing Laboratory | + + + | | [facility], TRANSFUSION MEDICINE [address] | | | [place] [address] | + + + PRODUCT - FRESH FROZEN PLASMA (09/01/2017 9:46 AM) + + + + | Component | Value | Ref Range | + + + + | PRODUCT DESCRIPTION | LIQUID PLASMA, IRRADIATED | | + + + + | PRODUCT UNIT # | [id number] | | + + + + | UNIT ABO | A | | + + + + | UNIT RH | POS | | + + + + | STATUS OF UNIT | Returned to Blood Bank | | + + + + | EXPIRATION DATE | [id number] | | + + + + | BLOOD TYPE BARCODE | 6200 | | + + + + | BLOOD PRODUCT CODE | [id number] | | + + + + + + + | Specimen | Performing Laboratory | + + + | | [facility], TRANSFUSION MEDICINE [address] | | | [place] [address] | + + + PRODUCT - FRESH FROZEN PLASMA (09/01/2017 9:46 AM) + + + + | Component | Value | Ref Range | + + + + | PRODUCT DESCRIPTION | LIQUID PLASMA, IRRADIATED | | + + + + | PRODUCT UNIT # | [id number] | | + + + + | UNIT ABO | A | | + + + + | UNIT RH | POS | | + + + + | STATUS OF UNIT | Returned to Blood Bank | | + + + + | EXPIRATION DATE | [id number] | | + + + + | BLOOD TYPE BARCODE | 6200 | | + + + + | BLOOD PRODUCT CODE | [id number] | | + + + + + + + | Specimen | Performing Laboratory | + + + | | [facility], TRANSFUSION MEDICINE [address] | | | [place] [address] | + + + PRODUCT - PLATELET PHERESIS LEUKOREDUCED (09/01/2017 9:43 AM) + + + + | Component | Value | Ref Range | + + + + | PRODUCT DESCRIPTION | PLATELETS PHERESIS LEUKOCYTE REDUCED | | + + + + | PRODUCT UNIT # | [id number] | | + + + + | UNIT ABO | A | | + + + + | UNIT RH | POS | | + + + + | STATUS OF UNIT | Presumed Transfused | | + + + + | EXPIRATION DATE | [id number] | | + + + + | BLOOD TYPE BARCODE | 6200 | | + + + + | BLOOD PRODUCT CODE | [id number] | | + + + + + + + | Specimen | Performing Laboratory | + + + | | [facility], TRANSFUSION MEDICINE [address] | | | [place] [address] | + + + PRODUCT - FRESH FROZEN PLASMA (09/01/2017 9:35 AM) + + + + | Component | Value | Ref Range | + + + + | PRODUCT DESCRIPTION | LIQUID PLASMA, IRRADIATED | | + + + + | PRODUCT UNIT # | [id number] | | + + + + | UNIT ABO | A | | + + + + | UNIT RH | NEG | | + + + + | STATUS OF UNIT | Presumed Transfused | | + + + + | EXPIRATION DATE | [id number] | | + + + + | BLOOD TYPE BARCODE | | | + + + + | BLOOD PRODUCT CODE | [id number] | | + + + + + + + | Specimen | Performing Laboratory | + + + | | [facility], TRANSFUSION MEDICINE [address] | | | [place] [address] | + + + PRODUCT - FRESH FROZEN PLASMA (09/01/2017 9:35 AM) + + + + | Component | Value | Ref Range | + + + + | PRODUCT DESCRIPTION | LIQUID PLASMA, IRRADIATED | | + + + + | PRODUCT UNIT # | [id number] | | + + + + | UNIT ABO | A | | + + + + | UNIT RH | NEG | | + + + + | STATUS OF UNIT | Returned to Blood Bank | | + + + + | EXPIRATION DATE | [id number] | | + + + + | BLOOD TYPE BARCODE | 0600 | | + + + + | BLOOD PRODUCT CODE | [id number] | | + + + + + + + | Specimen | Performing Laboratory | + + + | | [facility], TRANSFUSION MEDICINE [address] | | | [place] [address] | + + + PRODUCT - FRESH FROZEN PLASMA (09/01/2017 9:35 AM) + + + + | Component | Value | Ref Range | + + + + | PRODUCT DESCRIPTION | LIQUID PLASMA, IRRADIATED | | + + + + | PRODUCT UNIT # | [id number] | | + + + + | UNIT ABO | A | | + + + + | UNIT RH | POS | | + + + + | STATUS OF UNIT | Returned to Blood Bank | | + + + + | EXPIRATION DATE | [id number] | | + + + + | BLOOD TYPE BARCODE | 6200 | | + + + + | BLOOD PRODUCT CODE | [id number] | | + + + + + + + | Specimen | Performing Laboratory | + + + | | [facility], TRANSFUSION MEDICINE [address] | | | [place] [address] | + + + PRODUCT - FRESH FROZEN PLASMA (09/01/2017 9:35 AM) + + + + | Component | Value | Ref Range | + + + + | PRODUCT DESCRIPTION | LIQUID PLASMA, IRRADIATED | | + + + + | PRODUCT UNIT # | [id number] | | + + + + | UNIT ABO | A | | + + + + | UNIT RH | POS | | + + + + | STATUS OF UNIT | Presumed Transfused | | + + + + | EXPIRATION DATE | [id number] | | + + + + | BLOOD TYPE BARCODE | 6200 | | + + + + | BLOOD PRODUCT CODE | [id number] | | + + + + + + + | Specimen | Performing Laboratory | + + + | | [facility], TRANSFUSION MEDICINE [address] | | | [place] [address] | + + + PRODUCT - RED CELLS LEUKOREDUCED (09/01/2017 9:35 AM) + + + + | Component | Value | Ref Range | + + + + | PRODUCT DESCRIPTION | -1 RED BLOOD CELL ADENINE-SALINE ADDED | | | | LEUKOCYTE | | + + + + | PRODUCT UNIT # | [id number] | | + + + + | UNIT ABO | O | | + + + + | UNIT RH | POS | | + + + + | STATUS OF UNIT | Returned to Blood Bank | | + + + + | EXPIRATION DATE | [id number] | | + + + + | BLOOD TYPE BARCODE | 5100 | | + + + + | BLOOD PRODUCT CODE | [id number] | | + + + + + + + | Specimen | Performing Laboratory | + + + | | [facility], TRANSFUSION MEDICINE [address] | | | [place] [address] | + + + PRODUCT - RED CELLS LEUKOREDUCED (09/01/2017 9:35 AM) + + + + | Component | Value | Ref Range | + + + + | PRODUCT DESCRIPTION | -1 RED BLOOD CELL ADENINE-SALINE ADDED | | | | LEUKOCYTE | | + + + + | PRODUCT UNIT # | [id number] | | + + + + | UNIT ABO | O | | + + + + | UNIT RH | POS | | + + + + | STATUS OF UNIT | Returned to Blood Bank | | + + + + | EXPIRATION DATE | [id number] | | + + + + | BLOOD TYPE BARCODE | 5100 | | + + + + | BLOOD PRODUCT CODE | [id number] | | + + + + + + + | Specimen | Performing Laboratory | + + + | | [facility], TRANSFUSION MEDICINE [address] | | | [place] [address] | + + + PRODUCT - RED CELLS LEUKOREDUCED (09/01/2017 9:35 AM) + + + + | Component | Value | Ref Range | + + + + | PRODUCT DESCRIPTION | -1 RED BLOOD CELL ADENINE-SALINE ADDED | | | | LEUKOCYTE | | + + + + | PRODUCT UNIT # | [id number] | | + + + + | UNIT ABO | O | | + + + + | UNIT RH | POS | | + + + + | STATUS OF UNIT | Presumed Transfused | | + + + + | EXPIRATION DATE | [id number] | | + + + + | BLOOD TYPE BARCODE | 5100 | | + + + + | BLOOD PRODUCT CODE | [id number] | | + + + + + + + | Specimen | Performing Laboratory | + + + | | [facility], TRANSFUSION MEDICINE [address] [place] [address] | | | [place] [address] | + + + PRODUCT - RED CELLS LEUKOREDUCED (09/01/2017 9:35 AM) + + + + | Component | Value | Ref Range | + + + + | PRODUCT DESCRIPTION | -1 RED BLOOD CELL ADENINE-SALINE ADDED | | | | LEUKOCYTE | | + + + + | PRODUCT UNIT # | [id number] | | + + + + | UNIT ABO | O | | + + + + | UNIT RH | POS | | + + + + | STATUS OF UNIT | Presumed Transfused | | + + + + | EXPIRATION DATE | [id number] | | + + + + | BLOOD TYPE BARCODE | 5100 | | + + + + | BLOOD PRODUCT CODE | [id number] | | + + + + + + + | Specimen | Performing Laboratory | + + + | | [facility], TRANSFUSION MEDICINE [address] | | | [place] [address] | + + + PRODUCT - RED CELLS LEUKOREDUCED (09/01/2017 9:35 AM) + + + + | Component | Value | Ref Range | + + + + | PRODUCT DESCRIPTION | -1 RED BLOOD CELL ADENINE-SALINE ADDED | | | | LEUKOCYTE | | + + + + | PRODUCT UNIT # | [id number] | | + + + + | UNIT ABO | O | | + + + + | UNIT RH | POS | | + + + + | STATUS OF UNIT | Returned to Blood Bank | | + + + + | EXPIRATION DATE | [id number] | | + + + + | BLOOD TYPE BARCODE | 5100 | | + + + + | BLOOD PRODUCT CODE | [id number] | | + + + + + + + | Specimen | Performing Laboratory | + + + | | [facility], TRANSFUSION MEDICINE [address] | | | [place] [address] | + + + PRODUCT - RED CELLS LEUKOREDUCED (09/01/2017 9:35 AM) + + + + | Component | Value | Ref Range | + + + + | PRODUCT DESCRIPTION | -1 RED BLOOD CELL ADENINE-SALINE ADDED | | | | LEUKOCYTE | | + + + + | PRODUCT UNIT # | [id number] | | + + + + | UNIT ABO | O | | + + + + | UNIT RH | POS | | + + + + | STATUS OF UNIT | Presumed Transfused | | + + + + | EXPIRATION DATE | [id number] | | + + + + | BLOOD TYPE BARCODE | 5100 | | + + + + | BLOOD PRODUCT CODE | [id number] | | + + + + + + + | Specimen | Performing Laboratory | + + + | | [facility], TRANSFUSION MEDICINE [address] [place] [address] | | | [place] [address] | + + + CBC (HEMOGRAM) ONLY (09/01/2017 9:35 AM) + + + + | Component | Value | Ref Range | + + + + | WHITE CELL COUNT | 10.77 | 3.50 - 10.80 K/cu mm | + + + + | RED CELL COUNT | 3.10 (L) | 4.50 - 6.00 M/cu mm | + + + + | HEMOGLOBIN | 8.8 (L) | 13.5 - 17.5 g/dL | + + + + | HEMATOCRIT | 27.1 (L) | 41.0 - 53.0 % | + + + + | MCV | 87.4 | 80.0 - 96.0 fL | + + + + | MCHC | 32.5 | 33.0 - 35.5 g/dL | + + + + | RDW SD | 49.4 (H) | 35.1 - 46.3 fL | + + + + | PLATELET COUNT | 63 (L) | 150 - 400 K/cu mm | + + + + | MPV | 9.5 (L) | 9.7 - 12.3 fL | + + + + | NRBC% | 0.0 | 0.0 - 0.3 % | + + + + | NRBC# | 0.00 | 0.00 - 0.02 K/cu mm | + + + + + + + | Specimen | Performing Laboratory | + + + | Blood | [facility], [place] [address] [place] [address] | | | [place] [address] | + + + RENAL FUNCTION SET (NA,K,CL,CO2,BUN,CREAT,GLUC,CA,PHOS,ALB ) (09/01/2017 9:35 AM) + + + + | Component | Value | Ref Range | + + + + | GLUCOSE, PLASMA | 151 (H) | 70 - 99 mg/dL | | (LAB) | | | + + + + | BUN, PLASMA (LAB) | 9 | 6 - 20 mg/dL | + + + + | CREATININE PLASMA | 0.66 (L) | 0.70 - 1.30 mg/dL | | (LAB) | | | + + + + | EGFR - | >60 | >60 mL/min | | GABONESE | | | + + + + | EGFR NON | >60 | >60 mL/min | | -GABONESE | | | + + + + | SODIUM, PLASMA (LAB) | 148 (H) | 136 - 145 mmol/L | + + + + | POTASSIUM, PLASMA | 3.6 | 3.4 - 5.0 mmol/L | | (LAB) | | | + + + + | CHLORIDE, PLASMA | 113 (H) | 97 - 108 mmol/L | | (LAB) | | | + + + + | TOTAL CO2, PLASMA | 26 | 21 - 32 mmol/L | | (LAB) | | | + + + + | CALCIUM, PLASMA | 7.0 (L) | 8.6 - 10.2 mg/dL | | (LAB) | | | + + + + | CALCIUM(ALB | 8.4 (L) | 8.6 - 10.2 mg/dL | | CORRECTED) | | | + + + + | ALBUMIN, PLASMA | 2.3 (L) | 3.5 - 4.7 g/dL | | (LAB) | | | + + + + | PHOSPHORUS, PLASMA | 3.3 | 2.4 - 4.7 mg/dL | | (LAB) | | | + + + + | POTASSIUM CMNT | No Hemo | | + + + + | ANION GAP | 9 | 4 - 11 mmol/L | + + + + | ANION GAP(ALB | 13 (H) | 4 - 11 mmol/L | | CORRECTED) | | | + + + + + + + | Specimen | Performing Laboratory | + + + | Blood | [facility], [facility] [address] | | | [place] [address] | + + + + + | Narrative | + + | GFR is estimated using the MDRD equation recommended by the National Kidney Disease | | Education Program. Estimated GFR Interpretive Information: <60 mL/min/1.73 sq | | m Chronic Kidney Disease <15 mL/min/1.73 sq | | m Kidney Failure Estimated GFR greater that 60 mL/min/1.73 | | sq m is of limited clinical value. The MDRD equation is not valid in the following | | situations: - Patients under 18 years of age - Severe malnutrition or obesity - | | Vegetarian diet - Rapidly changing kidney function - Amputees, paraplegics, or other | | muscle-wasting diseses | + + CBC ONLY (09/01/2017 9:35 AM) + + + | Specimen | Performing Laboratory | + + + | Blood | | + + + + + | Narrative | + + | The following orders were created for panel order CBC ONLY. | | Procedure | | Abnormality Status | | --------- | | ------ CBC (HEMOGRAM) | | ONLY[[id number]] Abnormal Final | | result Please view results for these tests on the | | individual orders. | + + LACTATE (09/01/2017 9:35 AM) + +-------+ + | Component | Value | Ref Range | + +-------+ + | LACTATE | 2.5 | mmol/L | + +-------+ + + + + | Specimen | Performing Laboratory | + + + | Blood | [facility], [place] [address] [place] [address] | | | [place] [address] | + + + + + | Narrative | + + | Reference Range: Venous blood:0.5 - 2.2 mmol/L Critical >= 4.0 mmol/L | | Arterial blood:0.5 - 1.6 mmol/L Critical >= 4.0 mmol/L | + + BG-HB,POC RT (09/01/2017 9:19 AM) + + + + | Component | Value | Ref Range | + + + + | HCO3 ARTERIAL, POC | 27.1 | 21 - 28 mmol/L | + + + + | PCO2 ARTERIAL, POC | 46 (H) | 32 - 43 mmHg | + + + + | PH ARTERIAL, POC | 7.38 | 7.37 - 7.44 | + + + + | O2 SAT ARTERIAL, POC | 95.3 | 92.0 - 98.0 % | + + + + | PO2 ARTERIAL, POC | 77 | 72 - 104 mmHg | + + + + | BASE EXCESS ART, POC | 2.1 | | + + + + | PAO2/FIO2 RATIO, POC | 154.0 (L) | >300 mmHg | + + + + | HEMOGLOBIN, POC | 6.6 (L) | 13.5 - 17.5 g/dL | + + + + | FIO2 ART, POC | 50.0 | | + + + + | PAT TEMP ART, POC | 36.5 | | + + + + + + + | Specimen | Performing Laboratory | + + + | Blood | [facility] [address] | | | [place] [address] | + + + X-RAY PORTABLE CHEST 1 VIEW (09/01/2017 9:18 AM) + + + | Specimen | Performing Laboratory | + + + | | [facility] VOICE RECOGNITION | + + + + + | Narrative | + + | EXAM: UT CHEST 1 VIEW HISTORY: Intubated COMPARISON: 08/31/17 FINDINGS: | | Support equipment is unchanged. The mediastinum is unremarkable. Perihilar atelectasis | | has improved prior study. There is no definite effusion. There is no appreciable | | pneumothorax. There are multiple acute rib fractures, as before. There remains a chronic | | left humeral deformity. IMPRESSION: Improved, mild perihilar atelectasis. | | I have personally reviewed the images and, if necessary, edited the report. I | | agree with the report as now presented. | + + + + | Procedure Note | + + | 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, Radiant Res In Interface - 09/02/2017 1:23 PM PDT EXAM: UT CHEST 1 | | VIEW HISTORY: IntubatedCOMPARISON: [...] report as now presented. | + + X-RAY FEMUR 2 VIEWS LEFT (09/01/2017 9:18 AM) + + + | Specimen | Performing Laboratory | + + + | | [facility] VO[facility] RECOGNITION | + + + + + | Narrative | + + | EXAM: FEMUR 2 VIEWS LEFT; PELVIS 1 VIEW 09/01/17 HISTORY: Trauma COMPARISON: | | CT CAP of the same date FINDINGS: Radiographs of the left femur and pelvis are | | provided. Minimal irregularity associated with the superior and inferior pubic rami | | fractures is observed; the sacral ala and iliac fractures are poorly delineated | | radiographically. Small contrast is seen in the decompressed urinary bladder. The hip | | joint spaces appear maintained. Mild degenerative changes of the lumbar spine are | | incompletely evaluated. Apparent enthesophyte at the left anterior superior iliac spine | | is noted. A healed femoral diaphyseal fracture is transfixed by intramedullary sushma with | | 2 proximal and 2 distal interlocking screws; hardware appears intact. There is no acute | | fracture or malalignment involving the hip or femur. The knee joint spaces appear | | grossly maintained, with normal alignment. Mild osteoarthrosis is present. No large knee | | joint effusion. IMPRESSION: Acute nondisplaced fractures involving the pelvis | | are better visualized on the CT acquired on the same date. Healed left femoral | | diaphyseal fracture with intact hardware. I have personally reviewed the images | | and, if necessary, edited the report. I agree with the report as now presented. | + + + + | Procedure Note | + + | 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, [employer] In Interface - 09/01/2017 1:40 PM [...] report as now presented. | + + PRODUCT - RED CELLS LEUKOREDUCED (09/01/2017 9:08 AM) + + + + | Component | Value | Ref Range | + + + + | PRODUCT DESCRIPTION | -1 RED BLOOD CELL ADENINE-SALINE ADDED | | | | LEUKOCYTE | | + + + + | PRODUCT UNIT # | [id number] | | + + + + | UNIT ABO | O | | + + + + | UNIT RH | POS | | + + + + | STATUS OF UNIT | Presumed Transfused | | + + + + | EXPIRATION DATE | [id number] | | + + + + | BLOOD TYPE BARCODE | 5100 | | + + + + | BLOOD PRODUCT CODE | [id number] | | + + + + + + + | Specimen | Performing Laboratory | + + + | | [facility], TRANSFUSION MEDICINE [address] | | | [place] [address] | + + + PRODUCT - RED CELLS LEUKOREDUCED (09/01/2017 9:08 AM) + + + + | Component | Value | Ref Range | + + + + | PRODUCT DESCRIPTION | -1 RED BLOOD CELL ADENINE-SALINE ADDED | | | | LEUKOCYTE | | + + + + | PRODUCT UNIT # | [id number] | | + + + + | UNIT ABO | O | | + + + + | UNIT RH | POS | | + + + + | STATUS OF UNIT | Presumed Transfused | | + + + + | EXPIRATION DATE | [id number] | | + + + + | BLOOD TYPE BARCODE | 5100 | | + + + + | BLOOD PRODUCT CODE | [id number] | | + + + + + + + | Specimen | Performing Laboratory | + + + | | [facility], TRANSFUSION MEDICINE [address] | | | [place] [address] | + + + PRODUCT - RED CELLS LEUKOREDUCED (09/01/2017 9:08 AM) + + + + | Component | Value | Ref Range | + + + + | PRODUCT DESCRIPTION | -1 RED BLOOD CELL ADENINE-SALINE ADDED | | | | LEUKOCYTE | | + + + + | PRODUCT UNIT # | [id number] | | + + + + | UNIT ABO | O | | + + + + | UNIT RH | POS | | + + + + | STATUS OF UNIT | Presumed Transfused | | + + + + | EXPIRATION DATE | [id number] | | + + + + | BLOOD TYPE BARCODE | 5100 | | + + + + | BLOOD PRODUCT CODE | [id number] | | + + + + + + + | Specimen | Performing Laboratory | + + + | | [facility], TRANSFUSION MEDICINE [address] | | | [place] [address] | + + + PRODUCT - RED CELLS LEUKOREDUCED (09/01/2017 9:08 AM) + + + + | Component | Value | Ref Range | + + + + | PRODUCT DESCRIPTION | -1 RED BLOOD CELL ADENINE-SALINE ADDED | | | | LEUKOCYTE | | + + + + | PRODUCT UNIT # | [id number] | | + + + + | UNIT ABO | O | | + + + + | UNIT RH | POS | | + + + + | STATUS OF UNIT | Presumed Transfused | | + + + + | EXPIRATION DATE | [id number] | | + + + + | BLOOD TYPE BARCODE | 5100 | | + + + + | BLOOD PRODUCT CODE | [id number] | | + + + + + + + | Specimen | Performing Laboratory | + + + | | [facility], [facility]SF[facility]ICINE [address] | | | [place] [address] | + + + PRODUCT - FRESH FROZEN PLASMA (09/01/2017 9:08 AM) + + + + | Component | Value | Ref Range | + + + + | PRODUCT DESCRIPTION | PLASMA THAWED | | + + + + | PRODUCT UNIT # | [id number] | | + + + + | UNIT ABO | B | | + + + + | UNIT RH | POS | | + + + + | STATUS OF UNIT | Presumed Transfused | | + + + + | EXPIRATION DATE | [id number] | | + + + + | BLOOD TYPE BARCODE | 7300 | | + + + + | BLOOD PRODUCT CODE | [id number] | | + + + + + + + | Specimen | Performing Laboratory | + + + | | [facility], [facility]SF[facility]ICINE [address] | | | [place] [address] | + + + PRODUCT - FRESH FROZEN PLASMA (09/01/2017 9:08 AM) + + + + | Component | Value | Ref Range | + + + + | PRODUCT DESCRIPTION | PLASMA THAWED | | + + + + | PRODUCT UNIT # | [id number] | | + + + + | UNIT ABO | B | | + + + + | UNIT RH | POS | | + + + + | STATUS OF UNIT | Presumed Transfused | | + + + + | EXPIRATION DATE | [id number] | | + + + + | BLOOD TYPE BARCODE | 7300 | | + + + + | BLOOD PRODUCT CODE | [id number] | | + + + + + + + | Specimen | Performing Laboratory | + + + | | [facility], TRANSF[facility]ION MEDICINE [address] | | | [place] [address] | + + + PRODUCT - FRESH FROZEN PLASMA (09/01/2017 9:08 AM) + + + + | Component | Value | Ref Range | + + + + | PRODUCT DESCRIPTION | PLASMA THAWED | | + + + + | PRODUCT UNIT # | [id number] | | + + + + | UNIT ABO | B | | + + + + | UNIT RH | POS | | + + + + | STATUS OF UNIT | Presumed Transfused | | + + + + | EXPIRATION DATE | [id number] | | + + + + | BLOOD TYPE BARCODE | 7300 | | + + + + | BLOOD PRODUCT CODE | [id number] | | + + + + + + + | Specimen | Performing Laboratory | + + + | | [facility], [facility]SF[facility]IC[facility] [address] [place] [address] | | | [place] [address] | + + + PRODUCT - FRESH FROZEN PLASMA (09/01/2017 9:08 AM) + + + + | Component | Value | Ref Range | + + + + | PRODUCT DESCRIPTION | THAWED APHERESIS PLASMA | | + + + + | PRODUCT UNIT # | [id number] | | + + + + | UNIT ABO | B | | + + + + | UNIT RH | POS | | + + + + | STATUS OF UNIT | Presumed Transfused | | + + + + | EXPIRATION DATE | [id number] | | + + + + | BLOOD TYPE BARCODE | 7300 | | + + + + | BLOOD PRODUCT CODE | [id number] | | + + + + + + + | Specimen | Performing Laboratory | + + + | | [facility], [facility] [address] [place] [address] | | | [place] [address] | + + + CT HEAD WO CONTRAST (09/01/2017 8:42 AM) + + + | Specimen | Performing Laboratory | + + + | | [facility] | + + + + + | Narrative | + + | EXAM: CT head without contrast HISTORY: Follow-up intracranial hemorrhage. | | COMPARISON: Multiple prior head CTs, most recently earlier the same day. TECHNIQUE: | | CT of the head without contrast. FINDINGS: Brain: Redemonstrated right convexity | | intracranial and extracranial fluid collections about the right cranioplasty site. The | | intracranial component is essentially stable measuring up to 11 mm with a similar degree | | of mass effect upon the right cerebral cortex and stable 4 mm leftward midline shift. | | The extracranial component has slightly increased in size measuring up to 12 mm in | | thickness, previously 9 mm. Hyperdense blood products layering within the dependent | | portions of both fluid collections are again noted. Right temporoparietal | | encephalomalacia is unchanged. The ventricles are stable in size and morphology. The | | basal cisterns remain patent. No new territorial loss of hahn-white differentiation. | | IMPRESSION: 1. Stable intracranial fluid collection deep to the right cranioplasty | | site with unchanged 4 mm midline shift. 2. Slight interval increase in size of the | | extracranial fluid collection overlying the right cranioplasty site. I have | | personally reviewed the images and, if necessary, edited the report. I agree with the | | report as now presented. | + + + + | Procedure Note | + + | 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, [employer] In Interface - 09/01/2017 9:01 AM [...] report as now presented. | + + PRODUCT - PLATELET PHERESIS LEUKOREDUCED (09/01/2017 5:33 AM) + + + + | Component | Value | Ref Range | + + + + | PRODUCT DESCRIPTION | APHERESIS | | | | PLATELETS,PAS,LEUKOREDUCED,IRRADIATED | | + + + + | PRODUCT UNIT # | [id number] | | + + + + | UNIT ABO | O | | + + + + | UNIT RH | POS | | + + + + | STATUS OF UNIT | Presumed Transfused | | + + + + | EXPIRATION DATE | [id number] | | + + + + | BLOOD TYPE BARCODE | 5100 | | + + + + | BLOOD PRODUCT CODE | [id number] | | + + + + + + + | Specimen | Performing Laboratory | + + + | | [facility]SF[facility] [address] | | | [place] [address] | + + + LACTATE (09/01/2017 5:29 AM) + +-------+ + | Component | Value | Ref Range | + +-------+ + | LACTATE | 1.2 | mmol/L | + +-------+ + + + + | Specimen | Performing Laboratory | + + + | Blood | [facility], [facility] [address] [place] [address] | | | [place] [address] | + + + + + | Narrative | + + | Reference Range: Venous blood:0.5 - 2.2 mmol/L Critical >= 4.0 mmol/L | | Arterial blood:0.5 - 1.6 mmol/L Critical >= 4.0 mmol/L | + + HEMATOCRIT (09/01/2017 5:29 AM) + + + + | Component | Value | Ref Range | + + + + | HEMATOCRIT | 23.0 (L) | 41.0 - 53.0 % | + + + + + + + | Specimen | Performing Laboratory | + + + | Blood | [facility], [facility] [address] [place] [address] [place] | | | [place] [address] | + + + MRI SPINE CERVICAL/THORACIC WO CONTRAST (09/01/2017 3:53 AM) + + + | Specimen | Performing Laboratory | + + + | | [facility] | + + + + + | Narrative | + + | EXAM: MRI cervical and thoracic spine without contrast HISTORY: Trauma, known | | vertebral fractures. COMPARISON: CT total spine 08/31/17 TECHNIQUE: Multiplanar | | multi-sequence MRI cervical and thoracic spine without intravenous contrast | | FINDINGS: Alignment: Normal Marrow: Acute C6 spinous process fracture and | | bilateral C7 laminar fractures are better characterized on CT total spine dated 08/31/17. | | Spinal Cord: There is a subtle increased STIR signal within the C4-C5 cord, as well | | as, at C6-C7. Craniocervical junction: Normal C2-3: Central disc | | osteophyte complex without canal or foraminal narrowing. C3-4: Uncovertebral | | hypertrophy and intervening disc with superimposed annular fissure, as well as | | thickening of the ligamentum flavum infusion of the right facet joints indent the | | ventral and dorsal thecal sac, flattening the cord and resulting in moderate to severe | | canal stenosis. Bilateral facet arthropathy results in mild right neural foraminal | | narrowing. C4-5: Uncovertebral hypertrophy and intervening disc in combination with | | bilateral facet arthropathy and buckling of the ligamentum flavum indents the dorsal | | and ventral thecal sac, flattens the cord and results in severe canal stenosis. Severe | | left and mild right neural foraminal narrowing. C5-6: Left paracentral disc | | osteophyte complex in combination with bilateral facet arthropathy indents the ventral | | thecal sac and flattens the ventral left hemicord resulting in mild canal stenosis and | | severe left neural foraminal narrowing. C6-7: Uncovertebral hypertrophy and | | intervening disc with a superimposed 12 mm caudal disc extrusion indents the ventral | | thecal sac, contacts and displaces the ventral cord and narrows bilateral subarticular | | zones. There is moderate canal stenosis, moderate-severe left and mild right | | neuroforaminal narrowing. C7-T1: Unremarkable Posterior fossa: | | Visualized portions are unremarkable Paraspinal soft tissues: Mild T2/STIR signal | | within a C3-7 interspinous space suggestive of interspinous ligamentous injury. No | | epidural hematoma is identified. THORACIC SPINE FINDINGS: Alignment: Normal | | Marrow: There is a T1 hypointense, T2 hyperintense marrow edema involving the T12 | | vertebral body with redemonstration of a horizontally oriented fracture with edema | | involving bilateral, left greater than right pedicles. Additional T2/STIR hyperintense | | horizontally oriented fracture lucency through the T4 vertebral body. Chronic appearing | | 20% anterior T5 and a 30% anterior T1 compression deformities.. Spinal cord: Normal | | There is a right paracentral T12-L1 no disc protrusion narrowing the right | | subarticular zones and indenting the ventral thecal sac without significant foraminal or | | canal stenosis. Paraspinal soft tissues: Upper thoracic paraspinal soft tissue | | edema noted. IMPRESSION: 1. Multilevel degenerative changes of the cervical | | spine, most severe at C3-C5 and C6-C7 resulting in moderate to severe canal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 +---+---+ | | | +---+---+ + +---------+ +-----+---+---+ | calcium gluconate 2 g in | New Bag | 09/01/2017 | 2 g | | | | dextrose 5 % IV 2 g, | | 10:05 | | | | | intravenous, ONCE, 1 dose, Sun | | PDT | | | | | 09/01/17 at 1015 | | | | | | + +---------+ +-----+---+---+ +---+---+ | | | +---+---+ + +---------+ +-----+---+---+ | ceFAZolin (ANCEF) 2 g in NaCl | New Bag | | 2 g | | | | 0.9 % (NS) IV 2 g, intravenous, | | 8 16:25 | | | | | EVERY 8 HOURS, First dose on Wed | | PDT | | | | | 11/06/17 at 0000, Until | | | | | | | Discontinued | | | | | | + +---------+ +-----+---+---+ +---------+ +-----+---+---+ | New Bag | | 2 g | | | | | 8 23:51 | | | | | | PDT | | | | +---------+ +-----+---+---+ | New Bag | | 2 g | | | | | 8 07:59 | | | | | | PDT | | | | +---------+ +-----+---+---+ +---+---+ | | | +---+---+ + +-------+ +-----+---+---+ | ceFAZolin (ANCEF) injection 1 g | Given | 09/29/2017 | 1 g | | | | 1 g, intravenous, EVERY 8 | | 14:52 | | | | | HOURS, 18 doses, First dose on | | PDT | | | | | 09/24/17 at 1600, Last dose on | | | | | | | 09/30/17 at 0800 | | | | | | + +-------+ +-----+---+---+ +-------+ +-----+---+---+ | Given | 09/30/2017 | 1 g | | | | | 00:21 | | | | | | PDT | | | | +-------+ +-----+---+---+ | Given | 09/30/2017 | 1 g | | | | | 07:57 | | | | | | PDT | | | | +-------+ +-----+---+---+ +---+---+ | | | +---+---+ + +-------+ +-----+---+---+ | ceFAZolin (ANCEF) injection 1 g | Given | | 1 g | | | | 1 g, intravenous, | | 8 14:32 | | | | | INTRAPROCEDURE ONCE, 1 dose, | | PDT | | | | | Starting 10/22/17 at 1445, | | | | | | | Until 10/22/17 at 1432 | | | | | | + +-------+ +-----+---+---+ +---+---+ | | | +---+---+ + +-------+ +-----+---+---+ | ceFEPIme (MAXIPIME) injection 2 | Given | 10/31/2017 | 2 g | | | | g 2 g, intravenous, EVERY 8 | | 08:45 | | | | | HOURS, 65 doses, First dose on | | PDT | | | | | Sho 10/10/17 at 1300, Last dose on | | | | | | | 11/01/17 at 0000 | | | | | | + +-------+ +-----+---+---+ +-------+ +-----+---+---+ | Given | 10/31/2017 | 2 g | | | | | 16:57 | | | | | | PDT | | | | +-------+ +-----+---+---+ | Given | 11/01/2017 | 2 g | | | | | 00:29 | | | | | | PDT | | | | +-------+ +-----+---+---+ +---+---+ | | | +---+---+ + +-------+ +--------+---+---+ | cephALEXin (KEFLEX) capsule 500 | Given | | 500 mg | | | | mg 500 mg, oral, EVERY 6 HOURS, | | 8 15:49 | | | | | 28 doses, First dose on Sat | | PDT | | | | | 09/23/17 at 1300, Last dose on Mon | | | | | | | 09/30/17 at 0600 | | | | | | + +-------+ +--------+---+---+ +-------+ +--------+---+---+ | Given | | 500 mg | | | | | 8 21:43 | | | | | | PDT | | | | +-------+ +--------+---+---+ | Given | | 500 mg | | | | | 8 10:54 | | | | | | PDT | | | | +-------+ +--------+---+---+ +---+---+ | | | +---+---+ + +-------+ +-------+---+---+ | chlorhexidine (PERIDEX) | Given | | 15 mL | | | | mouthwash 15 mL 15 mL, oral, | | 8 15:27 | | | | | EVERY 6 HOURS, First dose on Sat | | PDT | | | | | 08/31/17 at 2200, Until | | | | | | | Discontinued | | | | | | + +-------+ +-------+---+---+ +-------+ +-------+---+---+ | Given | | 15 mL | | | | | 8 21:16 | | | | | | PDT | | | | +-------+ +-------+---+---+ | Given | | 15 mL | | | | | 8 03:49 | | | | | | PDT | | | | +-------+ +-------+---+---+ +---+---+ | | | +---+---+ + +-------+ +-------+---+---+ | chlorhexidine (PERIDEX) | Given | | 15 mL | | | | mouthwash 15 mL 15 mL, oral, | | 8 11:08 | | | | | EVERY 6 HOURS, First dose on Sat | | PDT | | | | | 10/12/17 at 2200, Until | | | | | | | Discontinued | | | | | | + +-------+ +-------+---+---+ +-------+ +-------+---+---+ | Given | | 15 mL | | | | | 8 21:17 | | | | | | PDT | | | | +-------+ +-------+---+---+ | Given | | 15 mL | | | | | 8 04:53 | | | | | | PDT | | | | +-------+ +-------+---+---+ +---+---+ | | | +---+---+ + + + + +-------+---+ | dexmedetomidine (PRECEDEX) 400 | Restarte | 09/04/2017 | 0.3 | 5.74 | | | mcg in NaCl 0.9 % 100 mL (4 | d | 21:44 | mcg/kg/h | mL/hr | | | mcg/mL) IV infusion 0.2-0.7 | | PDT | r | | | | mcg/kg/hr | | | | | | | 76.5 kg Dosing weight | | | | | | | (3.825-13.3875 mL/hr, rounded to | | | | | | | 3.83-13.39 mL/hr), intravenous, | | | | | | | CONTINUOUS, Starting 09/04/17 | | | | | | | at 1615, Until Sho 09/05/17 at | | | | | | | 0710 | | | | | | + + + + +-------+---+ + + + +-------+---+ | Rate/Dose Change | 09/04/2017 | 0.4 | 7.65 | | | | 21:54 | mcg/kg/h | mL/hr | | | | PDT | r | | | + + + +-------+---+ | Rate/Dose Verify | 09/04/2017 | 0.4 | 7.65 | | | | 22:00 | mcg/kg/h | mL/hr | | | | PDT | r | | | + + + +-------+---+ +---+---+ | | | +---+---+ + + + +-------+-------+---+ | dextrose 5 %-lactated ringers | Rate/Dos | | 100 | 100 | | | IV infusion 100 mL/hr, | e Verify | 8 17:35 | mL/hr | mL/hr | | | intravenous, CONTINUOUS, Starting | | PDT | | | | | 10/23/17 at 2215, Until Sat | | | | | | | 10/26/17 at 0902 | | | | | | + + + +-------+-------+---+ + + +-------+-------+---+ | Rate/Dose Verify | | 100 | 100 | | | | 8 00:10 | mL/hr | mL/hr | | | | PDT | | | | + + +-------+-------+---+ | Rate/Dose Verify | | 100 | 100 | | | | 8 05:21 | mL/hr | mL/hr | | | | PDT | | | | + + +-------+-------+---+ +---+---+ | | | +---+---+ + + + + + +---+ | dextrose 5%-NaCl 0.45% IV | Rate/Dos | 09/04/2017 | 75 mL/hr | 75 mL/hr | | | infusion 75 mL/hr, intravenous, | e Verify | 05:00 | | | | | CONTINUOUS, Starting 09/03/17 | | PDT | | | | | at 1200, Until 09/04/17 at 0658 | | | | | | + + + + + +---+ + + + + +---+ | Rate/Dose Verify | 09/04/2017 | 75 mL/hr | 75 mL/hr | | | | 06:00 | | | | | | PDT | | | | + + + + +---+ | Rate/Dose Verify | 09/04/2017 | 75 mL/hr | 75 mL/hr | | | | 07:00 | | | | | | PDT | | | | + + + + +---+ + +---+ | | | + +---+ [...] | + +---+ + +-------+ +-------+---+---+ | diatrizoate meglumine-sodium | Given | 12/03/2017 | 50 mL | | | | (GASTROGRAFINMOIRAGASTROSHELLY) | | 00:59 | | | | | 66-10 % oral solution 50 mL 50 | | PDT | | | | | mL, feeding tube, ONCE, 1 dose, | | | | | | | 12/03/17 at 0045 | | | | | | + +-------+ +-------+---+---+ +---+---+ | | | +---+---+ + +---------+ +---------+---+---+ | diphenhydrAMINE (BENADRYL) IV | New Bag | 10/27/2017 | 12.5 mg | | | | bag 12.5 mg 12.5 mg, | | 00:40 | | | | | intravenous, ONCE, 1 dose, Sun | | PDT | | | | | 10/27/17 at 0000 | | | | | | + +---------+ +---------+---+---+ +---+---+ | | | +---+---+ + +-------+ +--------+---+---+ | docusate sodium liquid 100 mg | Given | | 100 mg | | | | 100 mg, feeding tube, TWICE | | 8 08:04 | | | | | DAILY, First dose on Sat09/04/17 | | PDT | | | | | at 0900, Until Discontinued | | | | | | + +-------+ +--------+---+---+ +-------+ +--------+---+---+ | Given | | 100 mg | | | | | 8 21:02 | | | | | | PDT | | | | +-------+ +--------+---+---+ | Given | | 100 mg | | | | | 8 09:35 | | | | | | PDT | | | | +-------+ +--------+---+---+ +---+---+ | | | +---+---+ + +-------+ +-------+---+---+ | docusate sodium liquid 50 mg | Given | 12/05/2017 | 50 mg | | | | 50 mg, feeding tube, TWICE DAILY, | | 08:25 | | | | | First dose on 11/10/17 at | | PDT | | | | | 2100, Until Discontinued | | | | | | + +-------+ +-------+---+---+ +-------+ +-------+---+---+ | Given | 12/05/2017 | 50 mg | | | | | 22:24 | | | | | | PDT | | | | +-------+ +-------+---+---+ | Given | | 50 mg | | | | | 8 08:12 | | | | | | PDT | | | | +-------+ +-------+---+---+ +---+---+ | | | +---+---+ + +-------+ +-------+---+---------+ | enoxaparin (LOVENOX) injection | Given | | 40 mg | | Abdomen | | 40 mg 40 mg, subcutaneous, EVERY | | 8 21:07 | | | | | EVENING, First dose on Sat | | PDT | | | | | 09/04/17 at 2100, Until | | | | | | | Discontinued | | | | | | + +-------+ +-------+---+---------+ +-------+ +-------+---+---------+ | Given | | 40 mg | | Abdomen | | | 8 20:45 | | | | | | PDT | | | | +-------+ +-------+---+---------+ | Given | | 40 mg | | Abdomen | | | 8 22:03 | | | | | | PDT | | | | +-------+ +-------+---+---------+ +---+---+ | | | +---+---+ + +-------+ +-------+---+---------+ | enoxaparin (LOVENOX) injection | Given | | 40 mg | | Abdomen | | 40 mg 40 mg, subcutaneous, EVERY | | 8 21:33 | | | | | EVENING, First dose on Wed | | PDT | | | | | 09/25/17 at 2100, Until | | | | | | | Discontinued | | | | | | + +-------+ +-------+---+---------+ +-------+ +-------+---+---------+ | Given | | 40 mg | | Abdomen | | | 8 21:18 | | | | | | PDT | | | | +-------+ +-------+---+---------+ | Given | | 40 mg | | Abdomen | | | 8 20:53 | | | | | | PDT | | | | +-------+ +-------+---+---------+ +---+---+ | | | +---+---+ + +-------+ +-------+---+---------+ | enoxaparin (LOVENOX) injection | Given | 11/01/2017 | 40 mg | | Abdomen | | 40 mg 40 mg, subcutaneous, EVERY | | 22:18 | | | | | EVENING, First dose on Wed | | PDT | | | | | 10/16/17 at 2100, Until | | | | | | | Discontinued | | | | | | + +-------+ +-------+---+---------+ +-------+ +-------+---+---------+ | Given | 11/02/2017 | 40 mg | | Abdomen | | | 21:20 | | | | | | PDT | | | | +-------+ +-------+---+---------+ | Given | 11/03/2017 | 40 mg | | Abdomen | | | 21:29 | | | | | | PDT | | | | +-------+ +-------+---+---------+ +---+---+ | | | +---+---+ + +-------+ +-------+---+---------+ | enoxaparin (LOVENOX) injection | Given | 12/03/2017 | 40 mg | | Abdomen | | 40 mg 40 mg, subcutaneous, EVERY | | 22:25 | | | | | EVENING, First dose on Sho | | PDT | | | | | 11/07/17 at 2100, Until | | | | | | | Discontinued | | | | | | + +-------+ +-------+---+---------+ +-------+ +-------+---+---------+ | Given | 12/04/2017 | 40 mg | | Abdomen | | | 22:01 | | | | | | PDT | | | | +-------+ +-------+---+---------+ | Given | 12/05/2017 | 40 mg | | Abdomen | | | 22:24 | | | | | | PDT | | | | +-------+ +-------+---+---------+ +---+---+ | | | +---+---+ + +-------+ +-------+---+---+ | famotidine (PEPCID) injection | Given | | 20 mg | | | | 20 mg 20 mg, intravenous, TWICE | | 8 10:17 | | | | | DAILY, First dose on Sat09/09/17 | | PDT | | | | | at 1730, Until Discontinued | | | | | | + +-------+ +-------+---+---+ +-------+ +-------+---+---+ | Given | | 20 mg | | | | | 8 21:38 | | | | | | PDT | | | | +-------+ +-------+---+---+ | Given | | 20 mg | | | | | 8 08:00 | | | | | | PDT | | | | +-------+ +-------+---+---+ +---+---+ | | | +---+---+ + +-------+ +-------+---+---+ | famotidine (PEPCID) injection | Given | | 20 mg | | | | 20 mg 20 mg, intravenous, TWICE | | 8 22:56 | | | | | DAILY, First dose on Sat09/19/17 | | PDT | | | | | at 2200, Until Discontinued | | | | | | + +-------+ +-------+---+---+ +-------+ +-------+---+---+ | Given | | 20 mg | | | | | 8 08:14 | | | | | | PDT | | | | +-------+ +-------+---+---+ +---+---+ | | | +---+---+ + +-------+ +-------+---+---+ | famotidine (PEPCID) injection | Given | 10/03/2017 | 20 mg | | | | 20 mg 20 mg, intravenous, TWICE | | 09:17 | | | | | DAILY, First dose on Sat09/20/17 | | PDT | | | | | at 2100, Until Discontinued | | | | | | + +-------+ +-------+---+---+ +-------+ +-------+---+---+ | Given | 10/03/2017 | 20 mg | | | | | 21:20 | | | | | | PDT | | | | +-------+ +-------+---+---+ | Given | 10/04/2017 | 20 mg | | | | | 08:07 | | | | | | PDT | | | | +-------+ +-------+---+---+ +---+---+ | | | +---+---+ + +-------+ +-------+---+---+ | famotidine (PEPCID) injection | Given | | 20 mg | | | | 20 mg 20 mg, intravenous, TWICE | | 8 23:19 | | | | | DAILY, First dose on 10/12/17 | | PDT | | | | | at 2330, Until Discontinued | | | | | | + +-------+ +-------+---+---+ +-------+ +-------+---+---+ | Given | | 20 mg | | | | | 8 08:29 | | | | | | PDT | | | | +-------+ +-------+---+---+ +---+---+ | | | +---+---+ + +-------+ +-------+---+---+ | famotidine (PEPCID) tablet 20 | Given | 09/04/2017 | 20 mg | | | | mg 20 mg, oral, TWICE DAILY, | | 21:34 | | | | | First dose on Sat09/04/17 at 2100, | | PDT | | | | | Until Discontinued | | | | | | + +-------+ +-------+---+---+ +-------+ +-------+---+---+ | Given | | 20 mg | | | | | 8 08:18 | | | | | | PDT | | | | +-------+ +-------+---+---+ | Given | | 20 mg | | | | | 8 21:16 | | | | | | PDT | | | | +-------+ +-------+---+---+ +---+---+ | | | +---+---+ + +-------+ +-------+---+---+ | famotidine (PEPCID) tablet 20 | Given | | 20 mg | | | | mg 20 mg, feeding tube, TWICE | | 8 07:52 | | | | | DAILY, First dose on Sat09/06/17 | | PDT | | | | | at 0900, Until Discontinued | | | | | | + +-------+ +-------+---+---+ +---+---+ | | | +---+---+ + +-------+ +-------+---+---+ | famotidine (PEPCID) tablet 20 | Given | | 20 mg | | | | mg 20 mg, feeding tube, TWICE | | 8 21:08 | | | | | DAILY, First dose on Sat09/18/17 | | PDT | | | | | at 2100, Until Discontinued | | | | | | + +-------+ +-------+---+---+ +---+---+ | | | +---+---+ + +-------+ +-------+---+---+ | famotidine (PEPCID) tablet 20 | Given | | 20 mg | | | | mg 20 mg, oral, TWICE DAILY, | | 8 08:44 | | | | | First dose on Sat09/19/17 at | | PDT | | | | | 0900, Until Discontinued | | | | | | + +-------+ +-------+---+---+ +---+---+ | | | +---+---+ + +-------+ +-------+---+---+ | famotidine (PEPCID) tablet 20 | Given | | 20 mg | | | | mg 20 mg, feeding tube, TWICE | | 8 20:36 | | | | | DAILY, First dose on Sat10/04/17 | | PDT | | | | | at 2100, Until Discontinued | | | | | | + +-------+ +-------+---+---+ +-------+ +-------+---+---+ | Given | | 20 mg | | | | | 8 08:55 | | | | | | PDT | | | | +-------+ +-------+---+---+ | Given | | 20 mg | | | | | 8 21:37 | | | | | | PDT | | | | +-------+ +-------+---+---+ +---+---+ | | | +---+---+ + +-------+ +-------+---+---+ | famotidine (PEPCID) tablet 20 | Given | | 20 mg | | | | mg 20 mg, feeding tube, TWICE | | 8 21:18 | | | | | DAILY, First dose on 10/13/17 | | PDT | | | | | at 2100, Until Discontinued | | | | | | + +-------+ +-------+---+---+ +-------+ +-------+---+---+ | Given | | 20 mg | | | | | 8 07:48 | | | | | | PDT | | | | +-------+ +-------+---+---+ +---+---+ | | | +---+---+ + + + +------+-------+---+ | fat emulsion (SMOFLIPID) 20 % | Rate/Dos | | 25 g | 5.2 | | | IV infusion 25 g at 5.2 mL/hr, | e Verify | 8 07:43 | | mL/hr | | | intravenous, TPN 2100, Starting | | PDT | | | | | 09/15/17 at 2099, Until Mon | | | | | | | 09/16/17 at 2058 | | | | | | + + + +------+-------+---+ + + +------+-------+---+ | Restarted | | 25 g | 5.2 | | | | 8 14:57 | | mL/hr | | | | PDT | | | | + + +------+-------+---+ | Rate/Dose Verify | | 25 g | 5.2 | | | | 8 20:36 | | mL/hr | | | | PDT | | | | + + +------+-------+---+ +---+---+ | | | +---+---+ + +---------+ +------+-------+---+ | fat emulsion (SMOFLIPID) 20 % | New Bag | | 26 g | 5.4 | | | IV infusion 26 g at 5.4 mL/hr, | | 8 21:13 | | mL/hr | | | intravenous, TPN 2100, Starting | | PDT | | | | | 10/25/17 at 2100, Until Sat | | | | | | | 10/26/17 at 2058 | | | | | | + +---------+ +------+-------+---+ + + +------+-------+---+ | Rate/Dose Verify | | 26 g | 5.4 | | | | 8 08:01 | | mL/hr | | | | PDT | | | | + + +------+-------+---+ +---+---+ | | | +---+---+ + +---------+ +------+-------+---+ | fat emulsion (SMOFLIPID) 20 % | New Bag | | 35 g | 7.3 | | | IV infusion 35 g at 7.3 mL/hr, | | 8 21:06 | | mL/hr | | | intravenous, TPN 2099, Starting | | PDT | | | | | 09/16/17 at 2100, Until Tue | | | | | | | 09/17/17 at 9 | | | | | | + +---------+ +------+-------+---+ + + +------+-------+---+ | Rate/Dose Verify | | 35 g | 7.3 | | | | 8 01:38 | | mL/hr | | | | PDT | | | | + + +------+-------+---+ | Restarted | | 35 g | 7.3 | | | | 8 06:31 | | mL/hr | | | | PDT | | | | + + +------+-------+---+ +---+---+ | | | +---+---+ + + + +------+-------+---+ | fat emulsion (SMOFLIPID) 20 % | Rate/Dos | | 35 g | 7.3 | | | IV infusion 35 g at 7.3 mL/hr, | e Verify | 8 02:23 | | mL/hr | | | intravenous, TPN 2100, Starting | | PDT | | | | | 09/17/17 at 2100, Until Wed | | | | | | | 09/18/17 at 2058 | | | | | | + + + +------+-------+---+ + + +------+-------+---+ | Rate/Dose Verify | | 35 g | 7.3 | | | | 8 06:59 | | mL/hr | | | | PDT | | | | + + +------+-------+---+ | Rate/Dose Verify | | 35 g | 7.3 | | | | 8 18:04 | | mL/hr | | | | PDT | | | | + + +------+-------+---+ +---+---+ | | | +---+---+ + +---------+ +------+-------+---+ | fat emulsion (SMOFLIPID) 20 % | New Bag | | 52 g | 18.6 | | | IV infusion 52 g at 18.6 mL/hr, | | 8 21:31 | | mL/hr | | | intravenous, TPN 2099, Starting | | PDT | | | | | Sho 09/26/17 at 2100, Until Fri | | | | | | | 09/27/17 at 2058 | | | | | | + +---------+ +------+-------+---+ +---+---+ | | | +---+---+ + +---------+ +------+-------+---+ | fat emulsion (SMOFLIPID) 20 % | New Bag | 09/27/2017 | 52 g | 18.6 | | | IV infusion 52 g at 18.6 mL/hr, | | 22:21 | | mL/hr | | | intravenous, TPN 2100, Starting | | PDT | | | | | 09/27/17 at 2100, Until Sat | | | | | | | 09/28/17 at 2058 | | | | | | + +---------+ +------+-------+---+ + + +------+-------+---+ | Rate/Dose Verify | 09/28/2017 | 52 g | 18.6 | | | | 02:31 | | mL/hr | | | | PDT | | | | + + +------+-------+---+ | Rate/Dose Verify | 09/28/2017 | 52 g | 18.6 | | | | 10:51 | | mL/hr | | | | PDT | | | | + + +------+-------+---+ +---+---+ | | | +---+---+ + +---------+ +------+-------+---+ | fat emulsion (SMOFLIPID) 20 % | New Bag | 09/28/2017 | 52 g | 18.6 | | | IV infusion 52 g at 18.6 mL/hr, | | 21:42 | | mL/hr | | | intravenous, TPN 2100, Starting | | PDT | | | | | 09/28/17 at 2100, Until Sun | | | | | | | 09/29/17 at 2058 | | | | | | + +---------+ +------+-------+---+ + + +------+-------+---+ | Rate/Dose Verify | 09/29/2017 | 52 g | 18.6 | | | | 03:30 | | mL/hr | | | | PDT | | | | + + +------+-------+---+ | Rate/Dose Verify | 09/29/2017 | 52 g | 18.6 | | | | 10:07 | | mL/hr | | | | PDT | | | | + + +------+-------+---+ +---+---+ | | | +---+---+ + +---------+ +------+-------+---+ | fat emulsion (SMOFLIPID) 20 % | New Bag | 09/29/2017 | 52 g | 18.6 | | | IV infusion 52 g at 18.6 mL/hr, | | 21:11 | | mL/hr | | | intravenous, TPN 2100, Starting | | PDT | | | | | 09/29/17 at 2100, Until Mon | | | | | | | 09/30/17 at 2058 | | | | | | + +---------+ +------+-------+---+ + + +------+-------+---+ | Rate/Dose Verify | 09/30/2017 | 52 g | 18.6 | | | | 07:56 | | mL/hr | | | | PDT | | | | + + +------+-------+---+ +---+---+ | | | +---+---+ + +---------+ +------+-------+---+ | fat emulsion (SMOFLIPID) 20 % | New Bag | 09/30/2017 | 52 g | 18.6 | | | IV infusion 52 g at 18.6 mL/hr, | | 21:40 | | mL/hr | | | intravenous, TPN 2100, Starting | | PDT | | | | | 09/30/17 at 2099, Until Tue | | | | | | | 10/01/17 at 2058 | | | | | | + +---------+ +------+-------+---+ + + +------+-------+---+ | Rate/Dose Verify | 10/01/2017 | 52 g | 18.6 | | | | 02:18 | | mL/hr | | | | PDT | | | | + + +------+-------+---+ | Rate/Dose Verify | 10/01/2017 | 52 g | 18.6 | | | | 06:25 | | mL/hr | | | | PDT | | | | + + +------+-------+---+ +---+---+ | | | +---+---+ + +---------+ +------+-------+---+ | fat emulsion (SMOFLIPID) 20 % | New Bag | 10/01/2017 | 52 g | 18.6 | | | IV infusion 52 g at 18.6 mL/hr, | | 21:15 | | mL/hr | | | intravenous, TPN 2100, Starting | | PDT | | | | | 10/01/17 at 2100, Until Wed | | | | | | | 10/02/17 at 2058 | | | | | | + +---------+ +------+-------+---+ + + +------+-------+---+ | Rate/Dose Verify | 10/02/2017 | 52 g | 18.6 | | | | 01:19 | | mL/hr | | | | PDT | | | | + + +------+-------+---+ | Rate/Dose Verify | 10/02/2017 | 52 g | 18.6 | | | | 05:43 | | mL/hr | | | | PDT | | | | + + +------+-------+---+ +---+---+ | | | +---+---+ + +---------+ +------+-------+---+ | fat emulsion (SMOFLIPID) 20 % | New Bag | | 52 g | 10.8 | | | IV infusion 52 g at 10.8 mL/hr, | | 8 21:53 | | mL/hr | | | intravenous, TPN 2100, Starting | | PDT | | | | | 10/26/17 at 2100, Until Sun | | | | | | | 10/27/17 at 2058 | | | | | | + +---------+ +------+-------+---+ + + +------+-------+---+ | Restarted | 10/27/2017 | 52 g | 10.8 | | | | 13:45 | | mL/hr | | | | PDT | | | | + + +------+-------+---+ +---+---+ | | | +---+---+ + +---------+ +------+-------+---+ | fat emulsion (SMOFLIPID) 20 % | New Bag | 10/27/2017 | 52 g | 10.8 | | | IV infusion 52 g at 10.8 mL/hr, | | 21:42 | | mL/hr | | | intravenous, TPN 2100, Starting | | PDT | | | | | 10/27/17 at 2100, Until Mon | | | | | | | 10/28/17 at 2059 | | | | | | + +---------+ +------+-------+---+ + + +------+-------+---+ | Rate/Dose Verify | 10/28/2017 | 52 g | 10.8 | | | | 03:45 | | mL/hr | | | | PDT | | | | + + +------+-------+---+ +---+---+ | | | +---+---+ + +---------+ +------+-------+---+ | fat emulsion (SMOFLIPID) 20 % | New Bag | 10/28/2017 | 52 g | 10.8 | | | IV infusion 52 g at 10.8 mL/hr, | | 20:55 | | mL/hr | | | intravenous, TPN 2100, Starting | | PDT | | | | | 10/28/17 at 2100, Until Tue | | | | | | | 10/29/17 at 1518 | | | | | | + +---------+ +------+-------+---+ + + +------+-------+---+ | Rate/Dose Verify | 10/29/2017 | 52 g | 10.8 | | | | 08:11 | | mL/hr | | | | PDT | | | | + + +------+-------+---+ | Rate/Dose Verify | 10/29/2017 | 52 g | 10.8 | | | | 13:51 | | mL/hr | | | | PDT | | | | + + +------+-------+---+ +---+---+ | | | +---+---+ + +---------+ +------+-------+---+ | fat emulsion (SMOFLIPID) 20 % | New Bag | | 57 g | 11.9 | | | IV infusion 57 g at 11.9 mL/hr, | | 8 21:05 | | mL/hr | | | intravenous, TPN 2100, Starting | | PDT | | | | | 09/18/17 at 2100, Until Sho | | | | | | | 09/19/17 at 2058 | | | | | | + +---------+ +------+-------+---+ + + +------+-------+---+ | Rate/Dose Verify | | 57 g | 11.9 | | | | 8 02:17 | | mL/hr | | | | PDT | | | | + + +------+-------+---+ +---+---+ | | | +---+---+ + +---------+ +------+-------+---+ | fat emulsion (SMOFLIPID) 20 % | New Bag | | 57 g | 20.4 | | | IV infusion 57 g at 20.4 mL/hr, | | 8 20:49 | | mL/hr | | | intravenous, TPN 2100, Starting | | PDT | | | | | Sho 09/19/17 at 2099, Until Fri | | | | | | | 09/20/17 at 2058 | | | | | | + +---------+ +------+-------+---+ + + +------+-------+---+ | Rate/Dose Verify | | 57 g | 20.4 | | | | 8 02:41 | | mL/hr | | | | PDT | | | | + + +------+-------+---+ +---+---+ | | | +---+---+ + +---------+ +------+-------+---+ | fat emulsion (SMOFLIPID) 20 % | New Bag | | 57 g | 20.4 | | | IV infusion 57 g at 20.4 mL/hr, | | 8 21:44 | | mL/hr | | | intravenous, TPN 2100, Starting | | PDT | | | | | 09/20/17 at 2099, Until Sat | | | | | | | 09/21/17 at 2058 | | | | | | + +---------+ +------+-------+---+ + + +------+-------+---+ | Rate/Dose Verify | | 57 g | 20.4 | | | | 8 04:45 | | mL/hr | | | | PDT | | | | + + +------+-------+---+ | Rate/Dose Verify | | 57 g | 20.4 | | | | 8 08:46 | | mL/hr | | | | PDT | | | | + + +------+-------+---+ +---+---+ | | | +---+---+ + + + +------+-------+---+ | fat emulsion (SMOFLIPID) 20 % | Rate/Dos | | 57 g | 20.4 | | | IV infusion 57 g at 20.4 mL/hr, | e Verify | 8 02:37 | | mL/hr | | | intravenous, TPN 2100, Starting | | PDT | | | | | 09/21/17 at 2099, Until Sun | | | | | | | 09/22/17 at 2058 | | | | | | + + + +------+-------+---+ + + +------+-------+---+ | Rate/Dose Verify | | 57 g | 20.4 | | | | 8 07:41 | | mL/hr | | | | PDT | | | | + + +------+-------+---+ | Rate/Dose Verify | | 57 g | 20.4 | | | | 8 11:29 | | mL/hr | | | | PDT | | | | + + +------+-------+---+ +---+---+ | | | +---+---+ + +---------+ +------+-------+---+ | fat emulsion (SMOFLIPID) 20 % | New Bag | | 57 g | 20.4 | | | IV infusion 57 g at 20.4 mL/hr, | | 8 21:25 | | mL/hr | | | intravenous, TPN 2099, Starting | | PDT | | | | | 09/22/17 at 2099, Until Mon | | | | | | | 09/23/17 at 2058 | | | | | | + +---------+ +------+-------+---+ +---+---+ | | | +---+---+ + +---------+ +------+-------+---+ | fat emulsion (SMOFLIPID) 20 % | New Bag | | 57 g | 20.4 | | | IV infusion 57 g at 20.4 mL/hr, | | 8 21:05 | | mL/hr | | | intravenous, TPN 2099, Starting | | PDT | | | | | 09/23/17 at 2099, Until Tue | | | | | | | 09/24/17 at 2058 | | | | | | + +---------+ +------+-------+---+ +---+---+ | | | +---+---+ + +---------+ +------+-------+---+ | fat emulsion (SMOFLIPID) 20 % | New Bag | | 57 g | 20.4 | | | IV infusion 57 g at 20.4 mL/hr, | | 8 21:53 | | mL/hr | | | intravenous, TPN 2100, Starting | | PDT | | | | | 09/24/17 at 2099, Until Wed | | | | | | | 09/25/17 at 2058 | | | | | | + +---------+ +------+-------+---+ + + +------+-------+---+ | Restarted | | 57 g | 20.4 | | | | 8 07:58 | | mL/hr | | | | PDT | | | | + + +------+-------+---+ +---+---+ | | | +---+---+ + +---------+ +------+-------+---+ | fat emulsion (SMOFLIPID) 20 % | New Bag | | 57 g | 20.4 | | | IV infusion 57 g at 20.4 mL/hr, | | 8 21:20 | | mL/hr | | | intravenous, TPN 2100, Starting | | PDT | | | | | 09/25/17 at 2100, Until Sho | | | | | | | 09/26/17 at 2059 | | | | | | + +---------+ +------+-------+---+ +---+---+ | | | +---+---+ + + + +--------+ +---+ | fentaNYL (SUBLIMAZE) 2500 | Rate/Dos | 09/04/2017 | 150 | 15 mL/hr | | | mcg/250 mL (10 mcg/mL) IV | e Verify | 07:00 | mcg/hr | | | | infusion (RTU) 12.5-250 mcg/hr | | PDT | | | | | (1.25-25 mL/hr), intravenous, | | | | | | | CONTINUOUS, Starting 08/31/17 | | | | | | | at 1930, Until 09/04/17 at 1011 | | | | | | + + + +--------+ +---+ + + +--------+ +---+ | Rate/Dose Verify | 09/04/2017 | 150 | 15 mL/hr | | | | 08:00 | mcg/hr | | | | | PDT | | | | + + +--------+ +---+ | Rate/Dose Verify | 09/04/2017 | 150 | 15 mL/hr | | | | 09:00 | mcg/hr | | | | | PDT | | | | + + +--------+ +---+ +---+---+ | | | +---+---+ + + + +--------+---+---+ | fentaNYL (SUBLIMAZE) bolus from | Bolus | 09/04/2017 | 50 mcg | | | | continuous infusion 50-100 mcg | from | 07:00 | | | | | intravenous, EVERY 30 MINUTES | Same Bag | PDT | | | | | NEEDED, Starting 08/31/17 at | | | | | | | 1858, Until 09/04/17 at 1011, | | | | | | | CPOT not at goal | | | | | | + + + +--------+---+---+ + + +--------+---+---+ | Bolus from Same Bag | 09/04/2017 | 50 mcg | | | | | 08:00 | | | | | | PDT | | | | + + +--------+---+---+ | Bolus from Same Bag | 09/04/2017 | 50 mcg | | | | | 09:23 | | | | | | PDT | | | | + + +--------+---+---+ +---+---+ | | | +---+---+ + +-------+ +---------+---+---+ | fentaNYL (SUBLIMAZE) injection | Given | 09/01/2017 | 100 mcg | | | | 100 mcg 100 mcg, intravenous, | | 04:56 | | | | | ONCE, 1 dose, [place] 09/01/17 at 0230 | | PDT | | | | + +-------+ +---------+---+---+ + +---+ | | | + +---+ | fentaNYL (SUBLIMAZE) injection | | | 1 dose, Starting 08/31/17 at | | | 1656, Until Discontinued | | + +---+ | | | + +---+ + +---------+ +--------+---+---+ | fluconazole IV 400 mg IN NaCl | New Bag | | 400 mg | | | | (RTU) 400 mg, intravenous, EVERY | | 8 02:45 | | | | | 24 HOURS, First dose on Sat | | PDT | | | | | 10/22/17 at 0145, Until | | | | | | | Discontinued | | | | | | + +---------+ +--------+---+---+ +---------+ +--------+---+---+ | New Bag | | 400 mg | | | | | 8 03:27 | | | | | | PDT | | | | +---------+ +--------+---+---+ | New Bag | | 400 mg | | | | | 8 05:36 | | | | | | PDT | | | | +---------+ +--------+---+---+ +---+---+ | | | +---+---+ + +-------+ +------+---+---+ | folic acid (FOLVITE) tablet 1 | Given | 09/01/2017 | 1 mg | | | | mg 1 mg, oral, DAILY, 3 doses, | | 22:37 | | | | | First dose on Sat09/01/17 at 2030, | | PDT | | | | | Last dose on Sat09/03/17 at 0900 | | | | | | + +-------+ +------+---+---+ +-------+ +------+---+---+ | Given | 09/02/2017 | 1 mg | | | | | 08:54 | | | | | | PDT | | | | +-------+ +------+---+---+ | Given | 09/03/2017 | 1 mg | | | | | 11:33 | | | | | | PDT | | | | +-------+ +------+---+---+ +---+---+ | | | +---+---+ + +-------+ +------+---+---+ | folic acid (FOLVITE) tablet 1 | Given | | 1 mg | | | | mg 1 mg, oral, DAILY, 3 doses, | | 8 18:30 | | | | | First dose on 09/07/17 at | | PDT | | | | | 1930, Last dose on 09/09/17 at | | | | | | | 0900 | | | | | | + +-------+ +------+---+---+ +-------+ +------+---+---+ | Given | | 1 mg | | | | | 8 08:21 | | | | | | PDT | | | | +-------+ +------+---+---+ | Given | | 1 mg | | | | | 8 09:21 | | | | | | PDT | | | | +-------+ +------+---+---+ +---+---+ | | | +---+---+ + +-------+ +------+---+---+ | folic acid (FOLVITE) tablet 1 | Given | | 1 mg | | | | mg 1 mg, oral, DAILY, First dose | | 8 12:03 | | | | | on 09/21/17 at 1230, Until | | PDT | | | | | Discontinued | | | | | | + +-------+ +------+---+---+ +-------+ +------+---+---+ | Given | | 1 mg | | | | | 8 08:41 | | | | | | PDT | | | | +-------+ +------+---+---+ +---+---+ | | | +---+---+ + + + +---------+---------+---+ | furosemide (LASIX) 100 mg in | Rate/Dos | 09/04/2017 | 2 mg/hr | 2 mL/hr | | | NaCl 0.9 % 100 mL (1 mg/mL) IV | e Verify | 12:00 | | | | | infusion 1-20 mg/hr (1-20 | | PDT | | | | | mL/hr), intravenous, CONTINUOUS, | | | | | | | Starting 09/04/17 at 1045, | | | | | | | Until Sat09/04/17 at 1701 | | | | | | + + + +---------+---------+---+ + + +---------+---------+---+ | Rate/Dose Change | 09/04/2017 | 4 mg/hr | 4 mL/hr | | | | 13:16 | | | | | | PDT | | | | + + +---------+---------+---+ | Rate/Dose Change | 09/04/2017 | 2 mg/hr | 2 mL/hr | | | | 15:00 | | | | | | PDT | | | | + + +---------+---------+---+ +---+---+ | | | +---+---+ + + + +---------+---------+---+ | furosemide (LASIX) 100 mg in | Rate/Dos | 09/04/2017 | 1 mg/hr | 1 mL/hr | | | NaCl 0.9 % 100 mL (1 mg/mL) IV | e Change | 18:17 | | | | | infusion 1-20 mg/hr (1-20 | | PDT | | | | | mL/hr), intravenous, CONTINUOUS, | | | | | | | Starting 09/04/17 at 1715, | | | | | | | Until [facility] 09/05/17 at 0727 | | | | | | + + + +---------+---------+---+ +---+---+ | | | +---+---+ + +---------+ +-------+---+---+ | gadoterate meglumine (DOTAREM) | IV Push | | 12 mL | | | | 0.5 mmol/mL injection 12 mL 12 | | 8 06:42 | | | | | mL, intravenous, ONCE, 1 dose, | | PDT | | | | | 09/25/17 at 0715 | | | | | | + +---------+ +-------+---+---+ + +---+ | | | + +---+ | glucagon (GLUCAGEN) injection 1 | | | mg 1 mg, intramuscular, | | | NEEDED, Starting Sho 09/26/17 at | | | 0029, Until 8/10/18 at 2052, | | | CBG less than 70 mg/dL per Adult | | | Hypoglycemia Protocol | | + +---+ | | | + +---+ + +-------+ +------+---+---+ | haloperidol (HALDOL) liquid 1 | Given | 11/01/2017 | 1 mg | | | | mg 1 mg, feeding tube, EVERY 2 | | 02:43 | | | | | HOURS NEEDED, Starting Mon | | PDT | | | | | 10/28/17 at 1102, Until Sat11/15/17 | | | | | | | at 1331, agitation | | | | | | + +-------+ +------+---+---+ +-------+ +------+---+---+ | Given | 11/04/2017 | 1 mg | | | | | 09:12 | | | | | | PDT | | | | +-------+ +------+---+---+ | Given | | 1 mg | | | | | 8 02:33 | | | | | | PDT | | | | +-------+ +------+---+---+ +---+---+ | | | +---+---+ + +-------+ +--------+---+---+ | haloperidol (HALDOL) liquid 2.5 | Given | | 2.5 mg | | | | mg 2.5 mg, feeding tube, EVERY | | 8 11:19 | | | | | MORNING, First dose on Sho | | PDT | | | | | 10/17/17 at 1515, Until | | | | | | | Discontinued | | | | | | + +-------+ +--------+---+---+ +-------+ +--------+---+---+ | Given | | 2.5 mg | | | | | 8 08:58 | | | | | | PDT | | | | +-------+ +--------+---+---+ | Given | | 2.5 mg | | | | | 8 08:40 | | | | | | PDT | | | | +-------+ +--------+---+---+ +---+---+ | | | +---+---+ + +-------+ +------+---+---+ | haloperidol (HALDOL) liquid 5 | Given | | 5 mg | | | | mg 5 mg, feeding tube, TWICE | | 8 09:32 | | | | | DAILY, First dose on 10/06/17 | | PDT | | | | | at 2100, Until Discontinued | | | | | | + +-------+ +------+---+---+ +-------+ +------+---+---+ | Given | | 5 mg | | | | | 8 20:33 | | | | | | PDT | | | | +-------+ +------+---+---+ | Given | | 5 mg | | | | | 8 10:34 | | | | | | PDT | | | | +-------+ +------+---+---+ +---+---+ | | | +---+---+ + +-------+ +------+---+---+ | haloperidol (HALDOL) liquid 5 | Given | | 5 mg | | | | mg 5 mg, feeding tube, AT | | 8 21:51 | | | | | BEDTIME, First dose on Sho | | PDT | | | | | 10/17/17 at 2200, Until | | | | | | | Discontinued | | | | | | + +-------+ +------+---+---+ +-------+ +------+---+---+ | Given | | 5 mg | | | | | 8 21:26 | | | | | | PDT | | | | +-------+ +------+---+---+ | Given | | 5 mg | | | | | 8 21:30 | | | | | | PDT | | | | +-------+ +------+---+---+ +---+---+ | | | +---+---+ + +-------+ +------+---+---+ | haloperidol (HALDOL) liquid 5 | Given | | 5 mg | | | | mg 5 mg, feeding tube, AT | | 8 22:04 | | | | | BEDTIME, First dose on Sat10/28/17 | | PDT | | | | | at 2200, Until Discontinued | | | | | | + +-------+ +------+---+---+ +-------+ +------+---+---+ | Given | | 5 mg | | | | | 8 21:21 | | | | | | PDT | | | | +-------+ +------+---+---+ | Given | | 5 mg | | | | | 8 22:29 | | | | | | PDT | | | | +-------+ +------+---+---+ +---+---+ | | | +---+---+ + +-------+ +------+---+---+ | haloperidol (HALDOL) liquid 5 | Given | 12/05/2017 | 5 mg | | | | mg 5 mg, feeding tube, TWICE | | 08:38 | | | | | DAILY, First dose on 12/01/17 | | PDT | | | | | at 1030, Until Discontinued | | | | | | + +-------+ +------+---+---+ +-------+ +------+---+---+ | Given | 12/05/2017 | 5 mg | | | | | 22:25 | | | | | | PDT | | | | +-------+ +------+---+---+ | Given | 8/10/201 | 5 mg | | | | | 8 10:19 | | | | | | PDT | | | | +-------+ +------+---+---+ +---+---+ | | | +---+---+ + +-------+ +------+---+---+ | haloperidol (HALDOL) liquid 5 | Given | 12/01/2017 | 5 mg | | | | mg 5 mg, feeding tube, EVERY 6 | | 14:08 | | | | | HOURS NEEDED, Starting Sun | | PDT | | | | | 12/01/17 at 0842, Until 12/02/17 | | | | | | | at 1508, aggression, | | | | | | | non-redirectable combativeness | | | | | | + +-------+ +------+---+---+ +-------+ +------+---+---+ | Given | 12/02/2017 | 5 mg | | | | | 00:51 | | | | | | PDT | | | | +-------+ +------+---+---+ | Given | 12/02/2017 | 5 mg | | | | | 13:18 | | | | | | PDT | | | | +-------+ +------+---+---+ +---+---+ | | | +---+---+ + +-------+ +------+---+---+ | haloperidol (HALDOL) liquid 5 | Given | 12/04/2017 | 5 mg | | | | mg 5 mg, feeding tube, EVERY 6 | | 14:21 | | | | | HOURS NEEDED, Starting Mon | | PDT | | | | | 12/02/17 at 1507, Until Sat12/06/17 | | | | | | | at 2052, agitation | | | | | | + +-------+ +------+---+---+ +-------+ +------+---+---+ | Given | 12/04/2017 | 5 mg | | | | | 20:24 | | | | | | PDT | | | | +-------+ +------+---+---+ | Given | | 5 mg | | | | | 8 02:10 | | | | | | PDT | | | | +-------+ +------+---+---+ +---+---+ | | | +---+---+ + +-------+ +------+---+---+ | haloperidol lactate (HALDOL) | Given | | 1 mg | | | | injection 1 mg 1 mg, | | 8 17:10 | | | | | intravenous, EVERY 2 HOURS | | PDT | | | | | NEEDED, Starting Sat10/22/17 at | | | | | | | 1611, Until Sat10/28/17 at 1108, | | | | | | | agitation | | | | | | + +-------+ +------+---+---+ +---+---+ | | | +---+---+ + +-------+ +------+---+---+ | haloperidol lactate (HALDOL) | Given | 09/27/2017 | 2 mg | | | | injection 2 mg 2 mg, | | 16:19 | | | | | intravenous, THREE TIMES DAILY, | | PDT | | | | | First dose on Sat09/24/17 at | | | | | | | 1445, Until Discontinued | | | | | | + +-------+ +------+---+---+ +-------+ +------+---+---+ | Given | 09/27/2017 | 2 mg | | | | | 22:21 | | | | | | PDT | | | | +-------+ +------+---+---+ | Given | 09/28/2017 | 2 mg | | | | | 08:19 | | | | | | PDT | | | | +-------+ +------+---+---+ +---+---+ | | | +---+---+ + +-------+ +------+---+---+ | haloperidol lactate (HALDOL) | Given | | 5 mg | | | | injection 2-5 mg 2-5 mg, | | 8 06:52 | | | | | intravenous, ONCE, 1 dose, Mon | | PDT | | | | | 10/14/17 at 0730 | | | | | | + +-------+ +------+---+---+ +---+---+ | | | +---+---+ + +-------+ +--------+---+---------+ | haloperidol lactate (HALDOL) | Given | 12/02/2017 | 2.5 mg | | Left | | injection 2.5 mg 2.5 mg, | | 16:01 | | | Deltoid | | intramuscular, EVERY 6 HOURS | | PDT | | | | | NEEDED, Starting 12/02/17 at | | | | | | | 1528, Until Sat12/03/17 at 1131, | | | | | | | aggression, non-redirectable | | | | | | | combativeness | | | | | | + +-------+ +--------+---+---------+ +-------+ +--------+---+---------+ | Given | 12/03/2017 | 2.5 mg | | Left | | | 01:21 | | | Deltoid | | | PDT | | | | +-------+ +--------+---+---------+ +---+---+ | | | +---+---+ + +-------+ +------+---+---+ | haloperidol lactate (HALDOL) | Given | | 3 mg | | | | injection 3 mg 3 mg, | | 8 22:17 | | | | | intravenous, AT BEDTIME, First | | PDT | | | | | dose on Sat10/22/17 at 2200, | | | | | | | Until Discontinued | | | | | | + +-------+ +------+---+---+ +-------+ +------+---+---+ | Given | | 3 mg | | | | | 8 22:25 | | | | | | PDT | | | | +-------+ +------+---+---+ | Given | | 3 mg | | | | | 8 21:52 | | | | | | PDT | | | | +-------+ +------+---+---+ +---+---+ | | | +---+---+ + +-------+ +------+---+---+ | haloperidol lactate (HALDOL) | Given | | 5 mg | | | | injection 5 mg 5 mg, | | 8 20:04 | | | | | intravenous, EVERY 2 HOURS | | PDT | | | | | NEEDED, Starting Sat09/04/17 at | | | | | | | 1004, Until Sat09/06/17 at 1741, | | | | | | | agitation | | | | | | + +-------+ +------+---+---+ +-------+ +------+---+---+ | Given | | 5 mg | | | | | 8 04:53 | | | | | | PDT | | | | +-------+ +------+---+---+ | Given | | 5 mg | | | | | 8 07:06 | | | | | | PDT | | | | +-------+ +------+---+---+ +---+---+ | | | +---+---+ + +-------+ +------+---+---+ | haloperidol lactate (HALDOL) | Given | | 5 mg | | | | injection 5 mg 5 mg, | | 8 17:31 | | | | | intravenous, EVERY 12 HOURS | | PDT | | | | | NEEDED, Starting 09/07/17 at | | | | | | | 1304, Until 09/22/17 at 0854, | | | | | | | agitation | | | | | | + +-------+ +------+---+---+ +-------+ +------+---+---+ | Given | | 5 mg | | | | | 8 13:00 | | | | | | PDT | | | | +-------+ +------+---+---+ | Given | | 5 mg | | | | | 8 01:19 | | | | | | PDT | | | | +-------+ +------+---+---+ +---+---+ | | | +---+---+ + +-------+ +------+---+---+ | haloperidol lactate (HALDOL) | Given | 09/29/2017 | 5 mg | | | | injection 5 mg 5 mg, | | 16:15 | | | | | intravenous, EVERY 6 HOURS | | PDT | | | | | NEEDED, Starting 09/24/17 at | | | | | | | 1214, Until e 10/08/17 at 1052, | | | | | | | agitation | | | | | | + +-------+ +------+---+---+ +-------+ +------+---+---+ | Given | 09/30/2017 | 5 mg | | | | | 04:32 | | | | | | PDT | | | | +-------+ +------+---+---+ | Given | 10/01/2017 | 5 mg | | | | | 02:19 | | | | | | PDT | | | | +-------+ +------+---+---+ +---+---+ | | | +---+---+ + +-------+ +------+---+---+ | haloperidol lactate (HALDOL) | Given | 10/01/2017 | 5 mg | | | | injection 5 mg 5 mg, | | 17:25 | | | | | intravenous, THREE TIMES DAILY, | | PDT | | | | | First dose on Sat09/28/17 at 1600, | | | | | | | Until Discontinued | | | | | | + +-------+ +------+---+---+ +-------+ +------+---+---+ | Given | 10/01/2017 | 5 mg | | | | | 21:34 | | | | | | PDT | | | | +-------+ +------+---+---+ | Given | 10/02/2017 | 5 mg | | | | | 10:28 | | | | | | PDT | | | | +-------+ +------+---+---+ +---+---+ | | | +---+---+ + +-------+ +------+---+---+ | haloperidol lactate (HALDOL) | Given | 10/05/2017 | 5 mg | | | | injection 5 mg 5 mg, | | 07:45 | | | | | intravenous, TWICE DAILY, First | | PDT | | | | | dose on Sat10/02/17 at 2100, Until | | | | | | | Discontinued | | | | | | + +-------+ +------+---+---+ +-------+ +------+---+---+ | Given | 10/05/2017 | 5 mg | | | | | 21:32 | | | | | | PDT | | | | +-------+ +------+---+---+ | Given | | 5 mg | | | | | 8 10:07 | | | | | | PDT | | | | +-------+ +------+---+---+ +---+---+ | | | +---+---+ + +-------+ +------+---+---+ | haloperidol lactate (HALDOL) | Given | 10/27/2017 | 5 mg | | | | injection 5 mg 5 mg, | | 21:41 | | | | | intravenous, AT BEDTIME, First | | PDT | | | | | dose on 10/27/17 at 2200, Until | | | | | | | Discontinued | | | | | | + +-------+ +------+---+---+ + +---+ | | | [...] | + +---+ + +-------+ +-------+---+---+ | hydrALAZINE (APRESOLINE) | Given | | 10 mg | | | | injection 10 mg 10 mg, | | 8 20:26 | | | | | intravenous, EVERY 2 HOURS | | PDT | | | | | NEEDED, Starting 09/22/17 at | | | | | | | 1254, Until 11/23/17 at 1511, | | | | | | | hypertension, 2nd line | | | | | | + +-------+ +-------+---+---+ +---+---+ | | | +---+---+ + +-------+ +--------+---+---+ | HYDROmorphone (DILAUDID) | Given | 09/04/2017 | 0.5 mg | | | | injection 0.2-0.6 mg 0.2-0.6 mg, | | 10:20 | | | | | intravenous, EVERY 2 HOURS | | PDT | | | | | NEEDED, Starting 08/31/17 at | | | | | | | 1849, Until Sat09/04/17 at 1155, | | | | | | | severe pain | | | | | | + +-------+ +--------+---+---+ +---+---+ | | | +---+---+ + +-------+ +--------+---+---+ | HYDROmorphone (DILAUDID) | Given | | 0.5 mg | | | | injection 0.2-0.6 mg 0.2-0.6 mg, | | 8 06:32 | | | | | intravenous, EVERY 2 HOURS | | PDT | | | | | NEEDED, Starting 10/13/17 at | | | | | | | 0840, Until Sat11/15/17 at 1332, | | | | | | | severe pain | | | | | | + +-------+ +--------+---+---+ +-------+ +--------+---+---+ | Given | | 0.5 mg | | | | | 8 09:15 | | | | | | PDT | | | | +-------+ +--------+---+---+ | Given | | 0.5 mg | | | | | 8 15:23 | | | | | | PDT | | | | +-------+ +--------+---+---+ +---+---+ | | | +---+---+ + +-------+ +--------+---+---+ | HYDROmorphone (DILAUDID) | Given | | 0.5 mg | | | | injection 0.5-1 mg 0.5-1 mg, | | 8 09:18 | | | | | intravenous, EVERY 2 HOURS | | PDT | | | | | NEEDED, Starting Sho 09/05/17 at | | | | | | | 0909, Until Sho 09/05/17 at 1415, | | | | | | | severe pain | | | | | | + +-------+ +--------+---+---+ +-------+ +--------+---+---+ | Given | | 0.5 mg | | | | | 8 10:18 | | | | | | PDT | | | | +-------+ +--------+---+---+ | Given | | 1 mg | | | | | 8 13:30 | | | | | | PDT | | | | +-------+ +--------+---+---+ +---+---+ | | | +---+---+ + +-------+ +--------+---+---+ | HYDROmorphone (DILAUDID) | Given | 09/04/2017 | 0.5 mg | | | | injection 0.5-1.5 mg 0.5-1.5 mg, | | 12:05 | | | | | intravenous, EVERY 2 HOURS | | PDT | | | | | NEEDED, Starting Sat09/04/17 at | | | | | | | 1155, Until Sat09/04/17 at 1701, | | | | | | | severe pain | | | | | | + +-------+ +--------+---+---+ +-------+ +--------+---+---+ | Given | 09/04/2017 | 0.5 mg | | | | | 15:02 | | | | | | PDT | | | | +-------+ +--------+---+---+ +---+---+ | | | +---+---+ + +-------+ +--------+---+---+ | HYDROmorphone (DILAUDID) | Given | | 0.5 mg | | | | injection 0.5-1.5 mg 0.5-1.5 mg, | | 8 17:33 | | | | | intravenous, EVERY 2 HOURS | | PDT | | | | | NEEDED, Starting Sho 09/05/17 at | | | | | | | 1415, Until Sho 09/19/17 at 1711, | | | | | | | severe pain | | | | | | + +-------+ +--------+---+---+ +-------+ +------+---+---+ | Given | | 1 mg | | | | | 8 03:44 | | | | | | PDT | | | | +-------+ +------+---+---+ | Given | | 1 mg | | | | | 8 07:28 | | | | | | PDT | | | | +-------+ +------+---+---+ +---+---+ | | | +---+---+ + +-------+ +--------+---+---+ | HYDROmorphone (DILAUDID) | Given | 09/30/2017 | 0.5 mg | | | | injection 0.5-1.5 mg 0.5-1.5 mg, | | 00:31 | | | | | intravenous, EVERY 2 HOURS | | PDT | | | | | NEEDED, Starting [facility] 09/19/17 at | | | | | | | 1711, Until Sat10/08/17 at 1052, | | | | | | | severe pain, or moderate pain | | | | | | | unable to give oral medication | | | | | | + +-------+ +--------+---+---+ +-------+ +--------+---+---+ | Given | 09/30/2017 | 0.5 mg | | | | | 10:47 | | | | | | PDT | | | | +-------+ +--------+---+---+ | Given | 10/01/2017 | 0.5 mg | | | | | 06:22 | | | | | | PDT | | | | +-------+ +--------+---+---+ +---+---+ | | | +---+---+ + +-------+ +------+---+---+ | HYDROmorphone (DILAUDID) tablet | Given | | 4 mg | | | | 2-4 mg 2-4 mg, oral, EVERY 3 | | 8 04:02 | | | | | HOURS NEEDED, Starting Wed | | PDT | | | | | 09/04/17 at 1659, Until Sho 09/05/17 | | | | | | | at 1415, moderate pain | | | | | | + +-------+ +------+---+---+ +-------+ +------+---+---+ | Given | | 4 mg | | | | | 8 08:18 | | | | | | PDT | | | | +-------+ +------+---+---+ | Given | | 4 mg | | | | | 8 11:45 | | | | | | PDT | | | | +-------+ +------+---+---+ +---+---+ | | | +---+---+ + +-------+ +------+---+---+ | HYDROmorphone (DILAUDID) tablet | Given | | 6 mg | | | | 2-6 mg 2-6 mg, oral, EVERY 3 | | 8 21:16 | | | | | HOURS NEEDED, Starting Sho | | PDT | | | | | 09/05/17 at 1415, Until Fri | | | | | | | 09/06/17 at 0705, moderate pain | | | | | | + +-------+ +------+---+---+ +-------+ +------+---+---+ | Given | | 6 mg | | | | | 8 00:23 | | | | | | PDT | | | | +-------+ +------+---+---+ | Given | | 6 mg | | | | | 8 04:53 | | | | | | PDT | | | | +-------+ +------+---+---+ +---+---+ | | | +---+---+ + +-------+ +------+---+---+ | HYDROmorphone (DILAUDID) tablet | Given | | 6 mg | | | | 2-6 mg 2-6 mg, feeding tube, | | 8 07:51 | | | | | EVERY 3 HOURS NEEDED, Starting | | PDT | | | | | 09/06/17 at 0705, Until Fri | | | | | | | 09/06/17 at 1002, moderate pain | | | | | | + +-------+ +------+---+---+ +---+---+ | | | +---+---+ + +-------+ +------+---+---+ | HYDROmorphone (DILAUDID) tablet | Given | | 4 mg | | | | 2-6 mg 2-6 mg, oral, EVERY 3 | | 8 15:49 | | | | | HOURS NEEDED, Starting Fri | | PDT | | | | | 09/06/17 at 1000, Until Tue | | | | | | | 09/24/17 at 1430, moderate pain | | | | | | + +-------+ +------+---+---+ +-------+ +------+---+---+ | Given | | 2 mg | | | | | 8 21:43 | | | | | | PDT | | | | +-------+ +------+---+---+ | Given | | 4 mg | | | | | 8 02:44 | | | | | | PDT | | | | +-------+ +------+---+---+ +---+---+ | | | +---+---+ + +-------+ +---------+---+--------+ | insulin lispro (HUMALOG) | Given | 10/02/2017 | 2 Units | | Right | | injection subcutaneous, FOUR | | 06:11 | | | Arm | | TIMES DAILY, First dose on Sho | | PDT | | | | | 09/26/17 at 0800, Until | | | | | | | Discontinued | | | | | | + +-------+ +---------+---+--------+ +-------+ +---------+---+ + | Given | 10/05/2017 | 2 Units | | Left Arm | | | 12:39 | | | | | | PDT | | | | +-------+ +---------+---+ + | Given | | 2 Units | | Right | | | 8 11:59 | | | Arm | | | PDT | | | | +-------+ +---------+---+ + +---+---+ | | | +---+---+ + +-------+ +-------+---+---+ | iohexol (OMNIPAQUE) 300 mg | Given | | 30 mL | | | | iodine/mL 30 mL 30 mL, oral, | | 8 08:22 | | | | | ONCE, 1 dose, 10/12/17 at 0800 | | PDT | | | | + +-------+ +-------+---+---+ +---+---+ | | | +---+---+ + +-------+ +-------+---+---+ | iohexol (OMNIPAQUE) 300 mg | Given | | 30 mL | | | | iodine/mL 30 mL 30 mL, oral, | | 8 02:21 | | | | | ONCE, 1 dose, 10/22/17 at 0215 | | PDT | | | | + +-------+ +-------+---+---+ +---+---+ | | | +---+---+ + +---------+ +--------+---+---+ | iohexol (OMNIPAQUE) 350 mg | IV Push | | 100 mL | | | | iodine/mL injection 100 mL 100 | | 8 13:20 | | | | | mL, intravenous, ONCE, 1 dose, | | PDT | | | | | 09/11/17 at 1400 | | | | | | + +---------+ +--------+---+---+ +---+---+ | | | +---+---+ + +---------+ +--------+---+---+ | iohexol (OMNIPAQUE) 350 mg | IV Push | | 100 mL | | | | iodine/mL injection 100 mL 100 | | 8 09:05 | | | | | mL, intravenous, PROCEDURE ONCE, | | PDT | | | | | 1 dose, 10/12/17 at 0915 | | | | | | + +---------+ +--------+---+---+ +---+---+ | | | +---+---+ + +---------+ +--------+---+---+ | iohexol (OMNIPAQUE) 350 mg | IV Push | | 100 mL | | | | iodine/mL injection 100 mL 100 | | 8 04:30 | | | | | mL, intravenous, PROCEDURE ONCE, | | PDT | | | | | 1 dose, 10/22/17 at 0430 | | | | | | + +---------+ +--------+---+---+ +---+---+ | | | +---+---+ + +---------+ +--------+---+---+ | iohexol (OMNIPAQUE) 350 mg | IV Push | | 100 mL | | | | iodine/mL injection 100 mL 100 | | 8 18:58 | | | | | mL, intravenous, ONCE, 1 dose, | | PDT | | | | | 11/11/17 at 1930 | | | | | | + +---------+ +--------+---+---+ +---+---+ | | | +---+---+ + +---------+ +--------+---+---+ | iohexol (OMNIPAQUE) 350 mg | IV Push | 08/31/2017 | 150 mL | | | | iodine/mL injection 125 mL 125 | | 18:17 | | | | | mL, intravenous, ONCE, 1 dose, | | PDT | | | | | 08/31/17 at 1900 | | | | | | + +---------+ +--------+---+---+ +---+---+ | | | +---+---+ + +-------+ +-------+---+---+ | labetalol (TRANDATE) IV | Given | 09/04/2017 | 10 mg | | | | injection 10 mg 10 mg, | | 15:20 | | | | | intravenous, EVERY 2 HOURS | | PDT | | | | | NEEDED, Starting Sat09/04/17 at | | | | | | | 1152, Until Sat10/11/17 at 1334, | | | | | | | hypertension, first line | | | | | | + +-------+ +-------+---+---+ +-------+ +-------+---+---+ | Given | | 10 mg | | | | | 8 04:02 | | | | | | PDT | | | | +-------+ +-------+---+---+ | Given | | 10 mg | | | | | 8 18:45 | | | | | | PDT | | | | +-------+ +-------+---+---+ + +---+ | | | + +---+ | labetalol (TRANDATE) IV | | | injection 1 dose, Starting Wed | | | 09/04/17 at 1203, Until 09/04/17 | | | at 1205 | | + +---+ | | | + +---+ + +---------+ + +---+---+ | lactated Ringers IV 1,000 mL, | New Bag | 08/31/2017 | 1,000 mL | | | | intravenous, ONCE, 1 dose, Sat | | 19:00 | | | | | 08/31/17 at 1930 | | PDT | | | | + +---------+ + +---+---+ +---+---+ | | | +---+---+ + + + +-------+-------+---+ | lactated Ringers IV 100 mL/hr, | Rate/Dos | 09/03/2017 | 100 | 100 | | | intravenous, CONTINUOUS, | e Verify | 07:00 | mL/hr | mL/hr | | | Starting 08/31/17 at 2145, | | PDT | | | | | Until 09/03/17 at 0859 | | | | | | + + + +-------+-------+---+ + + +-------+-------+---+ | Rate/Dose Verify | 09/03/2017 | 100 | 100 | | | | 07:43 | mL/hr | mL/hr | | | | PDT | | | | + + +-------+-------+---+ | Rate/Dose Verify | 09/03/2017 | 100 | 100 | | | | 08:00 | mL/hr | mL/hr | | | | PDT | | | | + + +-------+-------+---+ +---+---+ | | | +---+---+ + +---------+ + +---+---+ | lactated Ringers IV 1,000 mL, | New Bag | 09/01/2017 | 1,000 mL | | | | intravenous, ONCE, 1 dose, Sun | | 08:15 | | | | | 09/01/17 at 0815 | | PDT | | | | + +---------+ + +---+---+ +---+---+ | | | +---+---+ + +---------+ +--------+---+---+ | lactated Ringers IV 500 mL, | New Bag | 09/01/2017 | 500 mL | | | | intravenous, ONCE, 1 dose, Mon | | 23:00 | | | | | 09/02/17 at 0000 | | PDT | | | | + +---------+ +--------+---+---+ +---+---+ | | | +---+---+ + +---------+ +--------+---+---+ | lactated Ringers IV 500 mL, | New Bag | 09/02/2017 | 500 mL | | | | intravenous, ONCE, 1 dose, Mon | | 17:49 | | | | | 09/02/17 at 1815 | | PDT | | | | + +---------+ +--------+---+---+ +---+---+ | | | +---+---+ + +---------+ +--------+---+---+ | lactated Ringers IV 500 mL, | New Bag | 09/02/2017 | 500 mL | | | | intravenous, ONCE, 1 dose, Mon | | 23:32 | | | | | 09/02/17 at 2345 | | PDT | | | | + +---------+ +--------+---+---+ +---+---+ | | | +---+---+ + + + + + +---+ | lactated Ringers IV 10 mL/hr, | Rate/Dos | | 10 mL/hr | 10 mL/hr | | | intravenous, CONTINUOUS, Starting | e Verify | 8 05:00 | | | | | 09/04/17 at 0730, Until Fri | | PDT | | | | | 09/06/17 at 1002 | | | | | | + + + + + +---+ + + + + +---+ | Rate/Dose Verify | | 10 mL/hr | 10 mL/hr | | | | 8 06:00 | | | | | | PDT | | | | + + + + +---+ | Rate/Dose Verify | | 10 mL/hr | 10 mL/hr | | | | 8 07:00 | | | | | | PDT | | | | + + + + +---+ +---+---+ | | | +---+---+ + + + +-------+-------+---+ | lactated Ringers IV 100 mL/hr, | Rate/Dos | | 100 | 100 | | | intravenous, CONTINUOUS, | e Verify | 8 20:00 | mL/hr | mL/hr | | | Starting 09/10/17 at 0630, | | PDT | | | | | Until 09/15/17 at 0923 | | | | | | + + + +-------+-------+---+ + + +-------+-------+---+ | New Bag | | 100 | 100 | | | | 8 19:26 | mL/hr | mL/hr | | | | PDT | | | | + + +-------+-------+---+ | Rate/Dose Verify | | 100 | 100 | | | | 8 01:29 | mL/hr | mL/hr | | | | PDT | | | | + + +-------+-------+---+ +---+---+ | | | +---+---+ + +---------+ + +-------+---+ | lactated Ringers IV 1,000 mL, | New Bag | | 1,000 mL | 999 | | | intravenous, ONCE, 1 dose, Sat | | 8 14:30 | | mL/hr | | | 09/11/17 at 1330 | | PDT | | | | + +---------+ + +-------+---+ +---+---+ | | | +---+---+ + + + +--------+-------+---+ | lactated Ringers IV 100-1,000 | Bolus | | 550 mL | 999 | | | mL, intravenous, EVERY 8 HOURS, | from | 8 13:40 | | mL/hr | | | First dose on Sat09/11/17 at | Same Bag | PDT | | | | | 1400, Until Discontinued | | | | | | + + + +--------+-------+---+ +---------+ +--------+-------+---+ | New Bag | | 600 mL | 999 | | | | 8 21:29 | | mL/hr | | | | PDT | | | | +---------+ +--------+-------+---+ | New Bag | | 500 mL | | | | | 8 14:53 | | | | | | PDT | | | | +---------+ +--------+-------+---+ +---+---+ | | | +---+---+ + +---------+ + +---+---+ | lactated Ringers IV 1,000 mL, | New Bag | | 1,000 mL | | | | intravenous, ONCE, 1 dose, Fri | | 8 11:36 | | | | | 09/13/17 at 1100 | | PDT | | | | + +---------+ + +---+---+ +---+---+ | | | +---+---+ + +---------+ +-------+-------+---+ | lactated Ringers IV 100 mL/hr, | New Bag | | 100 | 100 | | | intravenous, CONTINUOUS, | | 8 02:03 | mL/hr | mL/hr | | | Starting 10/12/17 at 0200, | | PDT | | | | | Until 10/13/17 at 0713 | | | | | | + +---------+ +-------+-------+---+ + + +-------+-------+---+ | Rate/Dose Verify | | 100 | 100 | | | | 8 08:01 | mL/hr | mL/hr | | | | PDT | | | | + + +-------+-------+---+ | Rate/Dose Verify | | 100 | 100 | | | | 8 12:29 | mL/hr | mL/hr | | | | PDT | | | | + + +-------+-------+---+ +---+---+ | | | +---+---+ + + + +-------+-------+---+ | lactated Ringers IV 100 mL/hr, | Rate/Dos | | 100 | 100 | | | intravenous, CONTINUOUS, | e Verify | 8 08:00 | mL/hr | mL/hr | | | Starting 10/12/17 at 2000, | | PDT | | | | | Until 10/14/17 at 1040 | | | | | | + + + +-------+-------+---+ + + +-------+-------+---+ | Rate/Dose Verify | | 100 | 100 | | | | 8 09:00 | mL/hr | mL/hr | | | | PDT | | | | + + +-------+-------+---+ | Rate/Dose Verify | | 100 | 100 | | | | 8 10:00 | mL/hr | mL/hr | | | | PDT | | | | + + +-------+-------+---+ +---+---+ | | | +---+---+ + + + +-------+-------+---+ | lactated Ringers IV 100 mL/hr, | Rate/Dos | | 100 | 100 | | | intravenous, CONTINUOUS, | e Verify | 8 08:56 | mL/hr | mL/hr | | | Starting 10/22/17 at 0515, | | PDT | | | | | Until 10/23/17 at 2138 | | | | | | + + + +-------+-------+---+ + + +-------+-------+---+ | New Bag | | 100 | 100 | | | | 8 09:50 | mL/hr | mL/hr | | | | PDT | | | | + + +-------+-------+---+ | Rate/Dose Verify | | 100 | 100 | | | | 8 16:37 | mL/hr | mL/hr | | | | PDT | | | | + + +-------+-------+---+ +---+---+ | | | +---+---+ + +---------+ +--------+---+---+ | lactated Ringers IV 500 mL, | New Bag | | 500 mL | | | | intravenous, ONCE, 1 dose, Tue | | 8 00:28 | | | | | 11/12/17 at 0030 | | PDT | | | | + +---------+ +--------+---+---+ +---+---+ | | | +---+---+ + +---------+ +--------+---+---+ | lactated Ringers IV 500 mL, | New Bag | | 500 mL | | | | intravenous, ONCE, 1 dose, Tue | | 8 01:47 | | | | | 11/12/17 at 0145 | | PDT | | | | + +---------+ +--------+---+---+ +---+---+ | | | +---+---+ + +---------+ +--------+---+---+ | lactated Ringers IV 500 mL, | New Bag | | 500 mL | | | | intravenous, ONCE, 1 dose, Sho | | 8 23:49 | | | | | 11/14/17 at 0000 | | PDT | | | | + +---------+ +--------+---+---+ +---+---+ | | | +---+---+ + +---------+ +--------+---+---+ | lactated Ringers IV 500 mL, | New Bag | | 500 mL | | | | intravenous, ONCE, 1 dose, Sho | | 8 03:25 | | | | | 11/14/17 at 0330 | | PDT | | | | + +---------+ +--------+---+---+ +---+---+ | | | +---+---+ + +---------+ +--------+---+---+ | levETIRAcetam (KEPPRA) IV 500 | New Bag | 09/01/2017 | 500 mg | | | | mg 500 mg, intravenous, TWICE | | 17:52 | | | | | DAILY, 14 doses, First dose on | | PDT | | | | | 09/01/17 at 1800, Last dose on | | | | | | | 09/08/17 at 0900 | | | | | | + +---------+ +--------+---+---+ +---------+ +--------+---+---+ | New Bag | 09/02/2017 | 500 mg | | | | | 08:54 | | | | | | PDT | | | | +---------+ +--------+---+---+ | New Bag | 09/02/2017 | 500 mg | | | | | 21:30 | | | | | | PDT | | | | +---------+ +--------+---+---+ +---+---+ | | | +---+---+ + +---------+ +--------+---+---+ | levETIRAcetam (KEPPRA) IV 500 | New Bag | | 500 mg | | | | mg 500 mg, intravenous, TWICE | | 8 09:55 | | | | | DAILY, First dose on Sat09/10/17 | | PDT | | | | | at 0900, Until Discontinued | | | | | | + +---------+ +--------+---+---+ +---------+ +--------+---+---+ | New Bag | | 500 mg | | | | | 8 21:38 | | | | | | PDT | | | | +---------+ +--------+---+---+ | New Bag | | 500 mg | | | | | 8 08:03 | | | | | | PDT | | | | +---------+ +--------+---+---+ +---+---+ | | | +---+---+ + +---------+ +--------+---+---+ | levETIRAcetam (KEPPRA) IV 500 | New Bag | 10/01/2017 | 500 mg | | | | mg 500 mg, intravenous, TWICE | | 08:55 | | | | | DAILY, First dose on Sat09/19/17 | | PDT | | | | | at 2100, Until Discontinued | | | | | | + +---------+ +--------+---+---+ +---------+ +--------+---+---+ | New Bag | 10/01/2017 | 500 mg | | | | | 21:13 | | | | | | PDT | | | | +---------+ +--------+---+---+ | New Bag | 10/02/2017 | 500 mg | | | | | 10:37 | | | | | | PDT | | | | +---------+ +--------+---+---+ +---+---+ | | | +---+---+ + +---------+ +--------+---+---+ | levETIRAcetam (KEPPRA) IV 500 | New Bag | | 500 mg | | | | mg 500 mg, intravenous, TWICE | | 8 20:36 | | | | | DAILY, First dose on Sho 10/10/17 | | PDT | | | | | at 2100, Until Discontinued | | | | | | + +---------+ +--------+---+---+ +---------+ +--------+---+---+ | New Bag | | 500 mg | | | | | 8 09:00 | | | | | | PDT | | | | +---------+ +--------+---+---+ +---+---+ | | | +---+---+ + +---------+ +--------+---+---+ | levETIRAcetam (KEPPRA) IV 500 | New Bag | | 500 mg | | | | mg 500 mg, intravenous, ONCE, 1 | | 8 15:51 | | | | | dose, [facility] 10/10/17 at 1600 | | PDT | | | | + +---------+ +--------+---+---+ +---+---+ | | | +---+---+ + +---------+ +--------+---+---+ | levETIRAcetam (KEPPRA) IV 500 | New Bag | | 500 mg | | | | mg 500 mg, intravenous, TWICE | | 8 21:53 | | | | | DAILY, First dose on 10/12/17 | | PDT | | | | | at 1100, Until Discontinued | | | | | | + +---------+ +--------+---+---+ +---------+ +--------+---+---+ | New Bag | 10/27/2017 | 500 mg | | | | | 20:32 | | | | | | PDT | | | | +---------+ +--------+---+---+ | New Bag | 10/28/2017 | 500 mg | | | | | 10:09 | | | | | | PDT | | | | +---------+ +--------+---+---+ +---+---+ | | | +---+---+ + +-------+ +--------+---+---+ | levETIRAcetam (KEPPRA) liquid | Given | | 500 mg | | | | 500 mg 500 mg, feeding tube, | | 8 21:07 | | | | | TWICE DAILY, First dose on Sat | | PDT | | | | | 09/18/17 at 2100, Until | | | | | | | Discontinued | | | | | | + +-------+ +--------+---+---+ +---+---+ | | | +---+---+ + +-------+ +--------+---+---+ | levETIRAcetam (KEPPRA) liquid | Given | | 500 mg | | | | 500 mg 500 mg, oral, TWICE | | 8 08:44 | | | | | DAILY, First dose on [facility] 09/19/17 | | PDT | | | | | at 0900, Until Discontinued | | | | | | + +-------+ +--------+---+---+ +---+---+ | | | +---+---+ + +-------+ +--------+---+---+ | levETIRAcetam (KEPPRA) liquid | Given | | 500 mg | | | | 500 mg 500 mg, oral, TWICE | | 8 08:09 | | | | | DAILY, First dose on Sat10/02/17 | | PDT | | | | | at 2100, Until Discontinued | | | | | | + +-------+ +--------+---+---+ +-------+ +--------+---+---+ | Given | | 500 mg | | | | | 8 21:11 | | | | | | PDT | | | | +-------+ +--------+---+---+ | Given | | 500 mg | | | | | 8 10:09 | | | | | | PDT | | | | +-------+ +--------+---+---+ +---+---+ | | | +---+---+ + +-------+ +--------+---+---+ | levETIRAcetam (KEPPRA) liquid | Given | 12/05/2017 | 500 mg | | | | 500 mg 500 mg, feeding tube, | | 08:25 | | | | | TWICE DAILY, First dose on Mon | | PDT | | | | | 10/28/17 at 2100, Until | | | | | | | Discontinued | | | | | | + +-------+ +--------+---+---+ +-------+ +--------+---+---+ | Given | 12/05/2017 | 500 mg | | | | | 22:24 | | | | | | PDT | | | | +-------+ +--------+---+---+ | Given | | 500 mg | | | | | 8 08:12 | | | | | | PDT | | | | +-------+ +--------+---+---+ +---+---+ | | | +---+---+ + +-------+ +--------+---+---+ | levETIRAcetam (KEPPRA) tablet | Given | | 500 mg | | | | 500 mg 500 mg, feeding tube, | | 8 08:17 | | | | | TWICE DAILY, First dose on Sat | | PDT | | | | | 09/03/17 at 1045, Until | | | | | | | Discontinued | | | | | | + +-------+ +--------+---+---+ +-------+ +--------+---+---+ | Given | | 500 mg | | | | | 8 21:16 | | | | | | PDT | | | | +-------+ +--------+---+---+ | Given | | 500 mg | | | | | 8 07:52 | | | | | | PDT | | | | +-------+ +--------+---+---+ +---+---+ | | | +---+---+ + +-------+ +--------+---+---+ | levETIRAcetam (KEPPRA) tablet | Given | | 500 mg | | | | 500 mg 500 mg, oral, TWICE | | 8 08:21 | | | | | DAILY, First dose on Sat09/06/17 | | PDT | | | | | at 2100, Until Discontinued | | | | | | + +-------+ +--------+---+---+ +-------+ +--------+---+---+ | Given | | 500 mg | | | | | 8 22:17 | | | | | | PDT | | | | +-------+ +--------+---+---+ | Given | | 500 mg | | | | | 8 09:21 | | | | | | PDT | | | | +-------+ +--------+---+---+ +---+---+ | | | +---+---+ + +-------+ +--------+---+---+ | levETIRAcetam (KEPPRA) tablet | Given | | 500 mg | | | | 500 mg 500 mg, feeding tube, | | 8 21:37 | | | | | TWICE DAILY, First dose on Sat | | PDT | | | | | 10/11/17 at 2100, Until | | | | | | | Discontinued | | | | | | + +-------+ +--------+---+---+ +---+---+ | | | +---+---+ + + + +---------+---+------+ | lidocaine (LIDODERM) 5 % patch | Applied | 11/28/2017 | 1 patch | | Neck | | 1 patch 1 patch, transdermal, | Patch | 20:38 | | | | | EVERY 24 HOURS, First dose on Sat | | PDT | | | | | 09/27/17 at 1115, Until | | | | | | | Discontinued | | | | | | + + + +---------+---+------+ + + +---------+---+ + | Applied Patch | 11/29/2017 | 1 patch | | Left | | | 21:14 | | | Shoulder | | | PDT | | | | + + +---------+---+ + | Applied Patch | 12/01/2017 | 1 patch | | Midline | | | 20:59 | | | Back | | | PDT | | | | + + +---------+---+ + +---+---+ | | | +---+---+ + +-------+ +-------+---+---+ | lidocaine-EPINEPHrine | Given | | 50 mL | | | | (XYLOCAINE WITH EPINEPHRINE) 1 | | 8 12:42 | | | | | %-1:100,000 injection 50 mL 50 | | PDT | | | | | mL, infiltration, ONCE, 1 dose, | | | | | | | 09/25/17 at 1030 | | | | | | + +-------+ +-------+---+---+ +---+---+ | | | +---+---+ + +-------+ +------+---+---+ | LORazepam (ATIVAN) injection 1 | Given | | 6 mg | | | | dose, Starting [facility] 10/10/17 at | | 8 02:25 | | | | | 0158, Until [facility] 10/10/17 at 0225 | | PDT | | | | + +-------+ +------+---+---+ +---+---+ | | | +---+---+ + +-------+ +--------+---+---+ | LORazepam (ATIVAN) tablet 0.5 | Given | | 0.5 mg | | | | mg 0.5 mg, feeding tube, ONCE, 1 | | 8 17:40 | | | | | dose, 09/07/17 at 1745 | | PDT | | | | + +-------+ +--------+---+---+ +---+---+ | | | +---+---+ + +-------+ +--------+---+---+ | LORazepam (ATIVAN) tablet 0.5-3 | Given | | 0.5 mg | | | | mg 0.5-3 mg, oral, NEEDED, | | 8 23:50 | | | | | Starting 09/07/17 at 1739, | | PDT | | | | | Until 09/08/17 at 1432, [facility] | | | | | | | protocol | | | | | | + +-------+ +--------+---+---+ +-------+ +------+---+---+ | Given | | 1 mg | | | | | 8 06:01 | | | | | | PDT | | | | +-------+ +------+---+---+ +---+---+ | | | +---+---+ + +---------+ +-----+---+---+ | magnesium sulfate in water IV | New Bag | 09/03/2017 | 2 g | | | | (RTU) 2 g 2 g, intravenous, | | 05:36 | | | | | ONCE, 1 dose, 09/03/17 at 0600 | | PDT | | | | + +---------+ +-----+---+---+ +---+---+ | | | +---+---+ + +---------+ +-----+---+---+ | magnesium sulfate in water IV | New Bag | 09/04/2017 | 2 g | | | | (RTU) 2 g 2 g, intravenous, | | 03:39 | | | | | ONCE, 1 dose, 09/04/17 at 0330 | | PDT | | | | + +---------+ +-----+---+---+ +---+---+ | | | +---+---+ + +---------+ +-----+---+---+ | magnesium sulfate in water IV | New Bag | | 2 g | | | | (RTU) 2 g 2 g, intravenous, | | 8 07:01 | | | | | ONCE, 1 dose, [facility] 09/05/17 at 0615 | | PDT | | | | + +---------+ +-----+---+---+ +---+---+ | | | +---+---+ + +---------+ +-----+ +---+ | magnesium sulfate in water IV | New Bag | | 2 g | 25 mL/hr | | | (RTU) 2 g 2 g, intravenous, | | 8 02:33 | | | | | ONCE, 1 dose, 09/07/17 at 0230 | | PDT | | | | + +---------+ +-----+ +---+ +---+---+ | | | +---+---+ + +---------+ +-----+---+---+ | magnesium sulfate in water IV | New Bag | | 2 g | | | | (RTU) 2 g 2 g, intravenous, | | 8 10:41 | | | | | ONCE, 1 dose, [place] 09/22/17 at 1000 | | PDT | | | | + +---------+ +-----+---+---+ +---+---+ | | | +---+---+ + +---------+ +-----+ +---+ | magnesium sulfate in water IV | New Bag | 09/27/2017 | 2 g | 25 mL/hr | | | (RTU) 2 g 2 g, intravenous, | | 10:32 | | | | | ONCE, 1 dose, 09/27/17 at 0815 | | PDT | | | | + +---------+ +-----+ +---+ +---+---+ | | | +---+---+ + +---------+ +-----+---+---+ | magnesium sulfate in water IV | New Bag | | 2 g | | | | (RTU) 2 g 2 g, intravenous, | | 8 02:07 | | | | | ONCE, 1 dose, 10/11/17 at 0245 | | PDT | | | | + +---------+ +-----+---+---+ +---+---+ | | | +---+---+ + +---------+ +-----+---+---+ | magnesium sulfate in water IV | New Bag | | 2 g | | | | (RTU) 2 g 2 g, intravenous, | | 8 10:50 | | | | | ONCE, 1 dose, 10/14/17 at 0815 | | PDT | | | | + +---------+ +-----+---+---+ +---+---+ | | | +---+---+ + +---------+ +-----+ +---+ | magnesium sulfate in water IV | New Bag | 09/01/2017 | 4 g | 25 mL/hr | | | (RTU) 4 g 4 g, intravenous, | | 09:44 | | | | | ONCE, 1 dose, [place] 09/01/17 at 0915 | | PDT | | | | + +---------+ +-----+ +---+ +---+---+ | | | +---+---+ + +---------+ +-----+---+---+ | magnesium sulfate in water IV | New Bag | 09/02/2017 | 4 g | | | | (RTU) 4 g 4 g, intravenous, | | 01:14 | | | | | ONCE, 1 dose, [facility] 09/02/17 at 0115 | | PDT | | | | + +---------+ +-----+---+---+ +---+---+ | | | +---+---+ + +-------+ +------+---+---+ | melatonin tablet 1 mg 1 mg, | Given | | 1 mg | | | | oral, EVERY EVENING, First dose | | 8 21:37 | | | | | on Sat10/11/17 at 2100, Until | | PDT | | | | | Discontinued | | | | | | + +-------+ +------+---+---+ +---+---+ | | | +---+---+ + +-------+ +------+---+---+ | melatonin tablet 1 mg 1 mg, | Given | | 1 mg | | | | feeding tube, EVERY EVENING, | | 8 21:50 | | | | | First dose on Sat10/12/17 at | | PDT | | | | | 2100, Until Discontinued | | | | | | + +-------+ +------+---+---+ +-------+ +------+---+---+ | Given | | 1 mg | | | | | 8 21:26 | | | | | | PDT | | | | +-------+ +------+---+---+ | Given | | 1 mg | | | | | 8 21:31 | | | | | | PDT | | | | +-------+ +------+---+---+ +---+---+ | | | +---+---+ + +-------+ +-------+---+---+ | melatonin tablet 10 mg 10 mg, | Given | 12/03/2017 | 10 mg | | | | feeding tube, EVERY EVENING, | | 22:09 | | | | | First dose on Sat11/27/17 at 2100, | | PDT | | | | | Until Discontinued | | | | | | + +-------+ +-------+---+---+ +-------+ +-------+---+---+ | Given | 12/04/2017 | 10 mg | | | | | 22:00 | | | | | | PDT | | | | +-------+ +-------+---+---+ | Given | 12/05/2017 | 10 mg | | | | | 22:24 | | | | | | PDT | | | | +-------+ +-------+---+---+ +---+---+ | | | +---+---+ + +-------+ +------+---+---+ | melatonin tablet 3 mg 3 mg, | Given | | 3 mg | | | | oral, EVERY EVENING, First dose | | 8 22:38 | | | | | on Sho 09/19/17 at 0000, Until | | PDT | | | | | Discontinued | | | | | | + +-------+ +------+---+---+ +-------+ +------+---+---+ | Given | | 3 mg | | | | | 8 21:10 | | | | | | PDT | | | | +-------+ +------+---+---+ | Given | | 3 mg | | | | | 8 21:43 | | | | | | PDT | | | | +-------+ +------+---+---+ +---+---+ | | | +---+---+ + +-------+ +------+---+---+ | melatonin tablet 3 mg 3 mg, | Given | | 3 mg | | | | oral, EVERY EVENING, First dose | | 8 20:15 | | | | | on 11/09/17 at 2100, Until | | PDT | | | | | Discontinued | | | | | | + +-------+ +------+---+---+ +---+---+ | | | +---+---+ + +-------+ +------+---+---+ | melatonin tablet 3 mg 3 mg, | Given | | 3 mg | | | | feeding tube, EVERY EVENING, | | 8 22:01 | | | | | First dose on 11/10/17 at | | PDT | | | | | 2100, Until Discontinued | | | | | | + +-------+ +------+---+---+ +-------+ +------+---+---+ | Given | | 3 mg | | | | | 8 21:22 | | | | | | PDT | | | | +-------+ +------+---+---+ | Given | | 3 mg | | | | | 8 22:29 | | | | | | PDT | | | | +-------+ +------+---+---+ +---+---+ | | | +---+---+ + +-------+ +------+---+---+ | melatonin tablet 6 mg 6 mg, | Given | | 6 mg | | | | feeding tube, EVERY EVENING, | | 8 20:39 | | | | | First dose on Sat11/19/17 at | | PDT | | | | | 2100, Until Discontinued | | | | | | + +-------+ +------+---+---+ +-------+ +------+---+---+ | Given | | 6 mg | | | | | 8 20:04 | | | | | | PDT | | | | +-------+ +------+---+---+ | Given | | 6 mg | | | | | 8 20:10 | | | | | | PDT | | | | +-------+ +------+---+---+ + +---+ | | | + +---+ | methyl salicylate-menthol | | | (BENGAY) ointment topical, EVERY | | | 2 HOURS NEEDED, Starting Fri | | | 11/22/17 at 0828, Until Fri | | | 12/06/17 at 205, mild pain | | + +---+ | | | + +---+ + +-------+ +------+---+---+ | midazolam (PF) (VERSED) | Given | 09/01/2017 | 2 mg | | | | injection 5 mg 5 mg, | | 04:57 | | | | | intravenous, ONCE, 1 dose, Sun | | PDT | | | | | 09/01/17 at 0245 | | | | | | + +-------+ +------+---+---+ + +---+ | | | + +---+ | midazolam (PF) (VERSED) | | | injection 1 dose, Starting Sun | | | 09/01/17 at 0203, Until 09/01/17 | | | at 0457 | | + +---+ | | | + +---+ + +-------+ + +---+---+ | multivitamin (THERA VITAMIN) 1 | Given | 09/01/2017 | 1 tablet | | | | tablet 1 tablet, oral, DAILY, 3 | | 22:37 | | | | | doses, First dose on 09/01/17 | | PDT | | | | | at 2030, Last dose on 09/03/17 | | | | | | | at 0900 | | | | | | + +-------+ + +---+---+ +-------+ + +---+---+ | Given | 09/02/2017 | 1 tablet | | | | | 08:54 | | | | | | PDT | | | | +-------+ + +---+---+ | Given | 09/03/2017 | 1 tablet | | | | | 11:32 | | | | | | PDT | | | | +-------+ + +---+---+ +---+---+ | | | +---+---+ + +-------+ + +---+---+ | multivitamin (THERA VITAMIN) 1 | Given | | 1 tablet | | | | tablet 1 tablet, oral, DAILY, 3 | | 8 18:30 | | | | | doses, First dose on 09/07/17 | | PDT | | | | | at 1930, Last dose on 09/09/17 | | | | | | | at 0900 | | | | | | + +-------+ + +---+---+ +-------+ + +---+---+ | Given | | 1 tablet | | | | | 8 08:21 | | | | | | PDT | | | | +-------+ + +---+---+ | Given | | 1 tablet | | | | | 8 09:21 | | | | | | PDT | | | | +-------+ + +---+---+ +---+---+ | | | +---+---+ + + + + +-------+---+ | norepinephrine (LEVOPHED) | Restarte | 09/01/2017 | 0.02 | 2.87 | | | 8mg/250 mL (0.032 mg/mL) IV | d | 12:38 | mcg/kg/m | mL/hr | | | infusion (RTU) INTRAPROCEDURE | | PDT | in | | | | CONTINUOUS PRN, Starting Sun | | | | | | | 09/01/17 at 1103, Until 09/01/17 | | | | | | | at 1428 | | | | | | + + + + +-------+---+ + + + +-------+---+ | Rate/Dose Change | 09/01/2017 | 0.04 | 5.74 | | | | 12:47 | mcg/kg/m | mL/hr | | | | PDT | in | | | + + + +-------+---+ | Rate/Dose Change | 09/01/2017 | 0.06 | 8.61 | | | | 13:08 | mcg/kg/m | mL/hr | | | | PDT | in | | | + + + +-------+---+ + +---+ | | | + +---+ [...] | | | + +---+ + +-------+ +-------+---+ + | OLANZapine (ZYPREXA) injection | Given | | 10 mg | | Right | | 10 mg 10 mg, intramuscular, | | 8 12:26 | | | [place] | | ONCE, 1 dose, [facility] 09/12/17 at 1130 | | PDT | | | uteal | + +-------+ +-------+---+ + +---+---+ | | | +---+---+ + +-------+ +-------+---+ + | OLANZapine (ZYPREXA) injection | Given | | 10 mg | | Right | | 10 mg 10 mg, intramuscular, | | 8 22:26 | | | [place] | | EVERY EVENING, First dose on Sat | | PDT | | | uteal | | 09/19/17 at 2100, Until | | | | | | | Discontinued | | | | | | + +-------+ +-------+---+ + +---+---+ | | | +---+---+ + +-------+ +-------+---+---+ | OLANZapine (ZYPREXA) suspension | Given | 09/04/2017 | 10 mg | | | | 10 mg 10 mg, feeding tube, | | 15:02 | | | | | DAILY, First dose on Sat09/04/17 | | PDT | | | | | at 1345, Until Discontinued | | | | | | + +-------+ +-------+---+---+ +-------+ +-------+---+---+ | Given | | 10 mg | | | | | 8 21:16 | | | | | | PDT | | | | +-------+ +-------+---+---+ +---+---+ | | | +---+---+ + +-------+ +-------+---+---+ | OLANZapine (ZYPREXA) suspension | Given | | 10 mg | | | | 10 mg 10 mg, oral, DAILY, First | | 8 22:16 | | | | | dose on Sat09/06/17 at 2100, | | PDT | | | | | Until Discontinued | | | | | | + +-------+ +-------+---+---+ +-------+ +-------+---+---+ | Given | | 10 mg | | | | | 8 22:39 | | | | | | PDT | | | | +-------+ +-------+---+---+ | Given | | 10 mg | | | | | 8 20:20 | | | | | | PDT | | | | +-------+ +-------+---+---+ +---+---+ | | | +---+---+ + +-------+ +-------+---+---+ | OLANZapine (ZYPREXA) suspension | Given | | 10 mg | | | | 10 mg 10 mg, feeding tube, | | 8 22:20 | | | | | DAILY, First dose on 09/14/17 | | PDT | | | | | at 2100, Until Discontinued | | | | | | + +-------+ +-------+---+---+ +-------+ +-------+---+---+ | Given | | 10 mg | | | | | 8 21:38 | | | | | | PDT | | | | +-------+ +-------+---+---+ | Given | | 10 mg | | | | | 8 21:11 | | | | | | PDT | | | | +-------+ +-------+---+---+ +---+---+ | | | +---+---+ + +-------+ +-------+---+---+ | OLANZapine (ZYPREXA) tablet 10 | Given | | 10 mg | | | | mg 10 mg, oral, TWICE DAILY, | | 8 11:11 | | | | | First dose on Sat09/20/17 at | | PDT | | | | | 2100, Until Discontinued | | | | | | + +-------+ +-------+---+---+ +-------+ +-------+---+---+ | Given | | 10 mg | | | | | 8 21:43 | | | | | | PDT | | | | +-------+ +-------+---+---+ | Given | | 10 mg | | | | | 8 11:03 | | | | | | PDT | | | | +-------+ +-------+---+---+ +---+---+ | | | +---+---+ + +-------+ +------+---+---+ | OLANZapine (ZYPREXA) tablet 5 | Given | | 5 mg | | | | mg 5 mg, oral, EVERY 4 HOURS | | 8 00:28 | | | | | NEEDED, Starting Sat09/20/17 at | | PDT | | | | | 1500, Until 09/22/17 at 0923, | | | | | | | aggression, non-redirectable | | | | | | | combativeness | | | | | | + +-------+ +------+---+---+ +-------+ +------+---+---+ | Given | | 5 mg | | | | | 8 11:27 | | | | | | PDT | | | | +-------+ +------+---+---+ | Given | | 5 mg | | | | | 8 22:39 | | | | | | PDT | | | | +-------+ +------+---+---+ +---+---+ | | | +---+---+ + +-------+ +------+---+---+ | OLANZapine (ZYPREXA) tablet 5 | Given | | 5 mg | | | | mg 5 mg, oral, EVERY 4 HOURS | | 8 16:46 | | | | | NEEDED, Starting 09/22/17 at | | PDT | | | | | 0921, Until Sat09/24/17 at 1214, | | | | | | | agitation | | | | | | + +-------+ +------+---+---+ +-------+ +------+---+---+ | Given | | 5 mg | | | | | 8 15:57 | | | | | | PDT | | | | +-------+ +------+---+---+ | Given | | 5 mg | | | | | 8 02:44 | | | | | | PDT | | | | +-------+ +------+---+---+ +---+---+ | | | +---+---+ + +-------+ +------+---+---+ | ondansetron (ZOFRAN) injection | Given | | 4 mg | | | | 4 mg 4 mg, intravenous, EVERY 12 | | 8 18:40 | | | | | HOURS NEEDED, Starting Sat | | PDT | | | | | 08/31/17 at 1849, Until Sat12/06/17 | | | | | | | at 2051, nausea/vomiting if | | | | | | | unable to take oral ondansetron | | | | | | + +-------+ +------+---+---+ +-------+ +------+---+---+ | Given | 10/27/2017 | 4 mg | | | | | 17:06 | | | | | | PDT | | | | +-------+ +------+---+---+ | Given | | 4 mg | | | | | 8 16:08 | | | | | | PDT | | | | +-------+ +------+---+---+ +---+---+ | | | +---+---+ + +-------+ +------+---+---+ | ondansetron (ZOFRAN) tablet 4 | Given | 10/05/2017 | 4 mg | | | | mg 4 mg, feeding tube, EVERY 12 | | 17:02 | | | | | HOURS NEEDED, Starting Fri | | PDT | | | | | 10/04/17 at 1107, Until 10/22/17 | | | | | | | at 1612, nausea/vomiting, first | | | | | | | line | | | | | | + +-------+ +------+---+---+ +-------+ +------+---+---+ | Given | | 4 mg | | | | | 8 01:08 | | | | | | PDT | | | | +-------+ +------+---+---+ | Given | | 4 mg | | | | | 8 08:57 | | | | | | PDT | | | | +-------+ +------+---+---+ +---+---+ | | | +---+---+ + +-------+ +------+---+---+ | ondansetron (ZOFRAN) tablet 4 | Given | | 4 mg | | | | mg 4 mg, feeding tube, EVERY 12 | | 8 10:05 | | | | | HOURS NEEDED, Starting Tue | | PDT | | | | | 10/29/17 at 0742, Until 12/06/17 | | | | | | | at 2052, nausea/vomiting, first | | | | | | | line | | | | | | + +-------+ +------+---+---+ +-------+ +------+---+---+ | Given | 12/04/2017 | 4 mg | | | | | 03:00 | | | | | | PDT | | | | +-------+ +------+---+---+ | Given | | 4 mg | | | | | 8 02:30 | | | | | | PDT | | | | +-------+ +------+---+---+ +---+---+ | | | +---+---+ + +-------+ +------+---+---+ | ondansetron (ZOFRAN) tablet 8 | Given | | 8 mg | | | | mg 8 mg, oral, EVERY 12 HOURS | | 8 16:15 | | | | | NEEDED, Starting 08/31/17 at | | PDT | | | | | 1849, Until 09/24/17 at 1430, | | | | | | | nausea/vomiting, first line | | | | | | + +-------+ +------+---+---+ +-------+ +------+---+---+ | Given | | 8 mg | | | | | 8 10:40 | | | | | | PDT | | | | +-------+ +------+---+---+ +---+---+ | | | +---+---+ + +-------+ +------+---+---+ | ondansetron ODT (ZOFRAN ODT) | Given | | 4 mg | | | | tablet 4 mg 4 mg, oral, ONCE, 1 | | 8 20:59 | | | | | dose, 11/05/17 at 1945 | | PDT | | | | + +-------+ +------+---+---+ +---+---+ | | | +---+---+ + +-------+ +------+---+---+ | oxyCODONE (immediate release) | Given | | 5 mg | | | | (ROXICODONE) liquid 5 mg 5 mg, | | 8 22:53 | | | | | oral, EVERY 4 HOURS NEEDED, | | PDT | | | | | Starting 10/04/17 at 0347, | | | | | | | Until 10/12/17 at 0838, | | | | | | | headache | | | | | | + +-------+ +------+---+---+ +-------+ +------+---+---+ | Given | | 5 mg | | | | | 8 03:15 | | | | | | PDT | | | | +-------+ +------+---+---+ | Given | | 5 mg | | | | | 8 13:00 | | | | | | PDT | | | | +-------+ +------+---+---+ +---+---+ | | | +---+---+ + +-------+ +------+---+---+ | oxyCODONE (immediate release) | Given | | 5 mg | | | | (ROXICODONE) liquid 5 mg 5 mg, | | 8 08:52 | | | | | feeding tube, EVERY 4 HOURS | | PDT | | | | | NEEDED, Starting 10/12/17 at | | | | | | | 0838, Until 10/22/17 at 1612, | | | | | | | headache | | | | | | + +-------+ +------+---+---+ +-------+ +------+---+---+ | Given | | 5 mg | | | | | 8 19:30 | | | | | | PDT | | | | +-------+ +------+---+---+ | Given | | 5 mg | | | | | 8 16:56 | | | | | | PDT | | | | +-------+ +------+---+---+ +---+---+ | | | +---+---+ + +-------+ +------+---+---+ | oxyCODONE (immediate release) | Given | 10/29/2017 | 5 mg | | | | (ROXICODONE) liquid 5 mg 5 mg, | | 09:05 | | | | | feeding tube, EVERY 4 HOURS | | PDT | | | | | NEEDED, Starting 10/29/17 at | | | | | | | 0844, Until 10/29/17 at 1217, | | | | | | | moderate pain | | | | | | + +-------+ +------+---+---+ +-------+ +------+---+---+ | Given | 10/29/2017 | 5 mg | | | | | 12:09 | | | | | | PDT | | | | +-------+ +------+---+---+ +---+---+ | | | +---+---+ + +-------+ +------+---+---+ | oxyCODONE (immediate release) | Given | | 5 mg | | | | (ROXICODONE) liquid 5 mg 5 mg, | | 8 03:32 | | | | | feeding tube, EVERY 3 HOURS | | PDT | | | | | NEEDED, Starting 7/3/18 at | | | | | | | 1230, Until Sat12/06/17 at 2052, | | | | | | | moderate pain | | | | | | + +-------+ +------+---+---+ +-------+ +------+---+---+ | Given | | 5 mg | | | | | 8 06:50 | | | | | | PDT | | | | +-------+ +------+---+---+ | Given | | 5 mg | | | | | 8 12:26 | | | | | | PDT | | | | +-------+ +------+---+---+ +---+---+ | | | +---+---+ + +-------+ +------+---+---+ | oxyCODONE (immediate release) | Given | 09/04/2017 | 5 mg | | | | (ROXICODONE) liquid 5-15 mg 5-15 | | 01:18 | | | | | mg, feeding tube, EVERY 3 HOURS | | PDT | | | | | NEEDED, Starting 08/31/17 at | | | | | | | 1848, Until Sat09/04/17 at 1701, | | | | | | | moderate pain | | | | | | + +-------+ +------+---+---+ +-------+ +-------+---+---+ | Given | 09/04/2017 | 10 mg | | | | | 08:20 | | | | | | PDT | | | | +-------+ +-------+---+---+ | Given | 09/04/2017 | 15 mg | | | | | 11:36 | | | | | | PDT | | | | +-------+ +-------+---+---+ +---+---+ | | | +---+---+ + +-------+ +------+---+---+ | oxyCODONE (immediate release) | Given | | 5 mg | | | | (ROXICODONE) tablet 5 mg 5 mg, | | 8 00:31 | | | | | oral, ONCE, 1 dose, 11/17/17 | | PDT | | | | | at 0100 | | | | | | + +-------+ +------+---+---+ +---+---+ | | | +---+---+ + + + +---+ +---+ | parenteral nutrition (adult) | Rate/Dos | | | 75 mL/hr | | | at 75 mL/hr, intravenous, TPN | e Verify | 8 07:43 | | | | | 2100, Starting 09/15/17 at | | PDT | | | | | 2100, Until 09/16/17 at 2058 | | | | | | + + + +---+ +---+ + + +---+ +---+ | Restarted | | | 75 mL/hr | | | | 8 14:57 | | | | | | PDT | | | | + + +---+ +---+ | Rate/Dose Verify | | | 75 mL/hr | | | | 8 20:37 | | | | | | PDT | | | | + + +---+ +---+ +---+---+ | | | +---+---+ + +---------+ +---+ +---+ | parenteral nutrition (adult) | New Bag | | | 75 mL/hr | | | at 75 mL/hr, intravenous, TPN | | 8 21:06 | | | | | 2100, Starting 09/16/17 at | | PDT | | | | | 2100, Until Sat09/17/17 at 9 | | | | | | + +---------+ +---+ +---+ + + +---+ +---+ | Rate/Dose Verify | | | 75 mL/hr | | | | 8 01:39 | | | | | | PDT | | | | + + +---+ +---+ | Restarted | | | 75 mL/hr | | | | 8 06:30 | | | | | | PDT | | | | + + +---+ +---+ +---+---+ | | | +---+---+ + + + +---+ +---+ | parenteral nutrition (adult) | Rate/Dos | | | 60 mL/hr | | | at 60 mL/hr, intravenous, TPN | e Verify | 8 02:22 | | | | | 2100, Starting Sat09/17/17 at | | PDT | | | | | 2100, Until Sat09/18/17 at 2059 | | | | | | + + + +---+ +---+ + + +---+ +---+ | Rate/Dose Verify | | | 60 mL/hr | | | | 8 06:58 | | | | | | PDT | | | | + + +---+ +---+ | Rate/Dose Verify | | | 60 mL/hr | | | | 8 18:04 | | | | | | PDT | | | | + + +---+ +---+ +---+---+ | | | +---+---+ + +---------+ +---+ +---+ | parenteral nutrition (adult) | New Bag | | | 60 mL/hr | | | at 60 mL/hr, intravenous, TPN | | 8 21:06 | | | | | 2100, Starting Sat09/18/17 at | | PDT | | | | | 2100, Until Sat09/19/17 at 2058 | | | | | | + +---------+ +---+ +---+ + + +---+ +---+ | Rate/Dose Verify | | | 60 mL/hr | | | | 8 02:16 | | | | | | PDT | | | | + + +---+ +---+ +---+---+ | | | +---+---+ + +---------+ +---+ +---+ | parenteral nutrition (adult) | New Bag | | | 60 mL/hr | | | at 60-110 mL/hr, intravenous, TPN | | 8 20:52 | | | | | 2100, Starting Sat09/19/17 at | | PDT | | | | | 2100, Until Sat09/20/17 at 2058 | | | | | | + +---------+ +---+ +---+ + + +---+-------+---+ | Rate/Dose Change | | | 110 | | | | 8 22:00 | | mL/hr | | | | PDT | | | | + + +---+-------+---+ | Rate/Dose Verify | | | 110 | | | | 8 02:40 | | mL/hr | | | | PDT | | | | + + +---+-------+---+ +---+---+ | | | +---+---+ + + + +---+-------+---+ | parenteral nutrition (adult) | Rate/Dos | | | 110 | | | at 60-110 mL/hr, intravenous, TPN | e Verify | 8 04:45 | | mL/hr | | | 2100, Starting 09/20/17 at | | PDT | | | | | 2100, Until 09/21/17 at 2059 | | | | | | + + + +---+-------+---+ + + +---+ +---+ | Rate/Dose Verify | | | 110 | | | | 8 08:46 | | mL/hr | | | | PDT | | | | + + +---+ +---+ | Rate/Dose Change | | | 60 mL/hr | | | | 8 10:59 | | | | | | PDT | | | | + + +---+ +---+ +---+---+ | | | +---+---+ + + + +---+-------+---+ | parenteral nutrition (adult) | Rate/Dos | | | 110 | | | at 60-110 mL/hr, intravenous, TPN | e Verify | 8 07:42 | | mL/hr | | | 2100, Starting 09/21/17 at | | PDT | | | | | 2100, Until 09/22/17 at 2058 | | | | | | + + + +---+-------+---+ + + +---+ +---+ | Rate/Dose Verify | | | 110 | | | | 8 11:29 | | mL/hr | | | | PDT | | | | + + +---+ +---+ | Rate/Dose Change | | | 60 mL/hr | | | | 8 12:08 | | | | | | PDT | | | | + + +---+ +---+ +---+---+ | | | +---+---+ + +---------+ +---+-------+---+ | parenteral nutrition (adult) | New Bag | | | 110 | | | at 60-110 mL/hr, intravenous, TPN | | 8 21:24 | | mL/hr | | | 2100, Starting 09/22/17 at | | PDT | | | | | 2100, Until 09/23/17 at 9 | | | | | | + +---------+ +---+-------+---+ + + +---+ +---+ | Rate/Dose Change | | | 60 mL/hr | | | | 8 10:25 | | | | | | PDT | | | | + + +---+ +---+ +---+---+ | | | +---+---+ + +---------+ +---+ +---+ | parenteral nutrition (adult) | New Bag | | | 60 mL/hr | | | at 60-110 mL/hr, intravenous, TPN | | 8 21:05 | | | | | 2100, Starting Sat09/23/17 at | | PDT | | | | | 2100, Until Sat09/24/17 at 2059 | | | | | | + +---------+ +---+ +---+ + + +---+-------+---+ | Rate/Dose Change | | | 110 | | | | 8 22:06 | | mL/hr | | | | PDT | | | | + + +---+-------+---+ +---+---+ | | | +---+---+ + + + +---+-------+---+ | parenteral nutrition (adult) | Rate/Dos | | | 110 | | | at 60-110 mL/hr, intravenous, TPN | e Change | 8 22:50 | | mL/hr | | | 2100, Starting Sat09/24/17 at | | PDT | | | | | 2100, Until Sat09/25/17 at 2059 | | | | | | + + + +---+-------+---+ + + +---+ +---+ | Restarted | | | 110 | | | | 8 07:58 | | mL/hr | | | | PDT | | | | + + +---+ +---+ | Rate/Dose Change | | | 60 mL/hr | | | | 8 13:44 | | | | | | PDT | | | | + + +---+ +---+ +---+---+ | | | +---+---+ + +---------+ +---+ +---+ | parenteral nutrition (adult) | New Bag | | | 60 mL/hr | | | at 60-110 mL/hr, intravenous, TPN | | 8 21:19 | | | | | 2100, Starting Sat09/25/17 at | | PDT | | | | | 2100, Until Sho 09/26/17 at 2058 | | | | | | + +---------+ +---+ +---+ +---+---+ | | | +---+---+ + +---------+ +---+ +---+ | parenteral nutrition (adult) | New Bag | | | 60 mL/hr | | | at 60-110 mL/hr, intravenous, TPN | | 8 21:32 | | | | | 2100, Starting Sho 09/26/17 at | | PDT | | | | | 2100, Until Sat09/27/17 at 2058 | | | | | | + +---------+ +---+ +---+ + + +---+-------+---+ | Rate/Dose Change | | | 110 | | | | 8 22:39 | | mL/hr | | | | PDT | | | | + + +---+-------+---+ +---+---+ | | | +---+---+ + + + +---+-------+---+ | parenteral nutrition (adult) | Rate/Dos | 09/27/2017 | | 110 | | | at 60-110 mL/hr, intravenous, TPN | e Change | 23:34 | | mL/hr | | | 2100, Starting Sat09/27/17 at | | PDT | | | | | 2100, Until 09/28/17 at 2059 | | | | | | + + + +---+-------+---+ + + +---+ +---+ | Rate/Dose Verify | 09/28/2017 | | 110 | | | | 02:31 | | mL/hr | | | | PDT | | | | + + +---+ +---+ | Rate/Dose Change | 09/28/2017 | | 60 mL/hr | | | | 10:50 | | | | | | PDT | | | | + + +---+ +---+ +---+---+ | | | +---+---+ + + + +---+-------+---+ | parenteral nutrition (adult) | Rate/Dos | 09/28/2017 | | 110 | | | at 60-110 mL/hr, intravenous, TPN | e Change | 22:50 | | mL/hr | | | 2100, Starting 09/28/17 at | | PDT | | | | | 2100, Until 09/29/17 at 2059 | | | | | | + + + +---+-------+---+ + + +---+ +---+ | Rate/Dose Verify | 09/29/2017 | | 110 | | | | 03:30 | | mL/hr | | | | PDT | | | | + + +---+ +---+ | Rate/Dose Change | 09/29/2017 | | 60 mL/hr | | | | 10:07 | | | | | | PDT | | | | + + +---+ +---+ +---+---+ | | | +---+---+ + + + +---+-------+---+ | parenteral nutrition (adult) | Rate/Dos | 09/29/2017 | | 110 | | | at 60-110 mL/hr, intravenous, TPN | e Change | 22:17 | | mL/hr | | | 2100, Starting 09/29/17 at | | PDT | | | | | 2100, Until Sat09/30/17 at 2059 | | | | | | + + + +---+-------+---+ + + +---+-------+---+ | Rate/Dose Verify | 09/30/2017 | | 110 | | | | 02:00 | | mL/hr | | | | PDT | | | | + + +---+-------+---+ | Rate/Dose Verify | 09/30/2017 | | 110 | | | | 07:56 | | mL/hr | | | | PDT | | | | + + +---+-------+---+ +---+---+ | | | +---+---+ + + + +---+-------+---+ | parenteral nutrition (adult) | Rate/Dos | 09/30/2017 | | 110 | | | at 60-110 mL/hr, intravenous, TPN | e Change | 22:41 | | mL/hr | | | 2100, Starting 09/30/17 at | | PDT | | | | | 2100, Until Sat10/01/17 at 2059 | | | | | | + + + +---+-------+---+ + + +---+-------+---+ | Rate/Dose Verify | 10/01/2017 | | 110 | | | | 02:18 | | mL/hr | | | | PDT | | | | + + +---+-------+---+ | Rate/Dose Verify | 10/01/2017 | | 110 | | | | 06:25 | | mL/hr | | | | PDT | | | | + + +---+-------+---+ +---+---+ | | | +---+---+ + + + +---+-------+---+ | parenteral nutrition (adult) | Rate/Dos | 10/01/2017 | | 110 | | | at 60-110 mL/hr, intravenous, TPN | e Change | 22:22 | | mL/hr | | | 2100, Starting Sat10/01/17 at | | PDT | | | | | 2100, Until Sat10/02/17 at 2058 | | | | | | + + + +---+-------+---+ + + +---+ +---+ | Rate/Dose Verify | 10/02/2017 | | 110 | | | | 02:44 | | mL/hr | | | | PDT | | | | + + +---+ +---+ | Rate/Dose Change | 10/02/2017 | | 60 mL/hr | | | | 10:25 | | | | | | PDT | | | | + + +---+ +---+ +---+---+ | | | +---+---+ + + + +---+ +---+ | parenteral nutrition (adult) | Rate/Dos | | | 50 mL/hr | | | at 35-60 mL/hr, intravenous, TPN | e Change | 8 01:12 | | | | | 2100, Starting 10/25/17 at | | PDT | | | | | 2100, Until 10/26/17 at 2058 | | | | | | + + + +---+ +---+ + + +---+ +---+ | Rate/Dose Change | | | 60 mL/hr | | | | 8 05:20 | | | | | | PDT | | | | + + +---+ +---+ | Rate/Dose Verify | | | 60 mL/hr | | | | 8 08:01 | | | | | | PDT | | | | + + +---+ +---+ +---+---+ | | | +---+---+ + +---------+ +---+ +---+ | parenteral nutrition (adult) | New Bag | | | 60 mL/hr | | | at 60 mL/hr, intravenous, TPN | | 8 21:52 | | | | | 2100, Starting 10/26/17 at | | PDT | | | | | 2100, Until 10/27/17 at 9 | | | | | | + +---------+ +---+ +---+ + + +---+ +---+ | Restarted | 10/27/2017 | | 60 mL/hr | | | | 13:45 | | | | | | PDT | | | | + + +---+ +---+ +---+---+ | | | +---+---+ + +---------+ +---+ +---+ | parenteral nutrition (adult) | New Bag | 10/27/2017 | | 60 mL/hr | | | at 60 mL/hr, intravenous, TPN | | 21:42 | | | | | 2100, Starting 10/27/17 at | | PDT | | | | | 2100, Until Sat10/28/17 at 2059 | | | | | | + +---------+ +---+ +---+ + + +---+ +---+ | Rate/Dose Verify | 10/28/2017 | | 60 mL/hr | | | | 03:45 | | | | | | PDT | | | | + + +---+ +---+ +---+---+ | | | +---+---+ + +---------+ +---+ +---+ | parenteral nutrition (adult) | New Bag | 10/28/2017 | | 60 mL/hr | | | at 60 mL/hr, intravenous, TPN | | 20:55 | | | | | 2100, Starting 10/28/17 at | | PDT | | | | | 2100, Until Sat10/29/17 at 1518 | | | | | | + +---------+ +---+ +---+ + + +---+ +---+ | Rate/Dose Verify | 10/29/2017 | | 60 mL/hr | | | | 08:11 | | | | | | PDT | | | | + + +---+ +---+ | Rate/Dose Verify | 10/29/2017 | | 60 mL/hr | | | | 13:51 | | | | | | PDT | | | | + + +---+ +---+ +---+---+ | | | +---+---+ + +---------+ +---------+---+---+ | piperacillin-tazobactam (ZOSYN) | New Bag | | 3.375 g | | | | IV (minibag+) 3.375 g 3.375 g, | | 8 11:49 | | | | | intravenous, EVERY 8 HOURS, 21 | | PDT | | | | | doses, First dose on Sat09/04/17 | | | | | | | at 1900, Last dose on Sat09/11/17 | | | | | | | at 1100 | | | | | | + +---------+ +---------+---+---+ +---------+ +---------+---+---+ | New Bag | | 3.375 g | | | | | 8 20:04 | | | | | | PDT | | | | +---------+ +---------+---+---+ | New Bag | | 3.375 g | | | | | 8 03:49 | | | | | | PDT | | | | +---------+ +---------+---+---+ +---+---+ | | | +---+---+ + +---------+ +-------+---+---+ | piperacillin-tazobactam (ZOSYN) | New Bag | 09/04/2017 | 4.5 g | | | | IV 4.5 g 4.5 g, intravenous, | | 13:14 | | | | | ONCE, 1 dose, 09/04/17 at 1300 | | PDT | | | | + +---------+ +-------+---+---+ +---+---+ | | | +---+---+ + +-------+ +------+---+---+ | polyethylene glycol (MIRALAX) | Given | 09/02/2017 | 17 g | | | | packet 17 g 17 g, oral, EVERY | | 21:23 | | | | | EVENING, First dose on 08/31/17 | | PDT | | | | | at 2100, Until Discontinued | | | | | | + +-------+ +------+---+---+ +---+---+ | | | +---+---+ + +-------+ +------+---+---+ | polyethylene glycol (MIRALAX) | Given | | 17 g | | | | packet 17 g 17 g, feeding tube, | | 8 11:30 | | | | | DAILY, First dose on Sat09/04/17 | | PDT | | | | | at 0900, Until Discontinued | | | | | | + +-------+ +------+---+---+ +-------+ +------+---+---+ | Given | | 17 g | | | | | 8 08:04 | | | | | | PDT | | | | +-------+ +------+---+---+ | Given | | 17 g | | | | | 8 08:44 | | | | | | PDT | | | | +-------+ +------+---+---+ +---+---+ | | | +---+---+ + +-------+ +------+---+---+ | polyethylene glycol (MIRALAX) | Given | | 17 g | | | | packet 17 g 17 g, oral, DAILY | | 8 16:05 | | | | | NEEDED, Starting 10/06/17 at | | PDT | | | | | 1004, Until 10/12/17 at 0838, | | | | | | | constipation, 1st line | | | | | | + +-------+ +------+---+---+ +-------+ +------+---+---+ | Given | | 17 g | | | | | 8 06:34 | | | | | | PDT | | | | +-------+ +------+---+---+ +---+---+ | | | +---+---+ + +-------+ +------+---+---+ | polyethylene glycol (MIRALAX) | Given | | 17 g | | | | packet 17 g 17 g, oral, EVERY | | 8 21:18 | | | | | EVENING, First dose on Sat | | PDT | | | | | 10/12/17 at 2115, Until | | | | | | | Discontinued | | | | | | + +-------+ +------+---+---+ +---+---+ | | | +---+---+ + +-------+ +------+---+---+ | polyethylene glycol (MIRALAX) | Given | 11/02/2017 | 17 g | | | | packet 34 g 34 g, oral, THREE | | 12:20 | | | | | TIMES DAILY NEEDED, Starting | | PDT | | | | | 11/02/17 at 1144, Until Sun | | | | | | | 11/10/17 at 1005, 1st line - for | | | | | | | no BM for 2 days | | | | | | + +-------+ +------+---+---+ +-------+ +------+---+---+ | Given | 11/02/2017 | 17 g | | | | | 14:00 | | | | | | PDT | | | | +-------+ +------+---+---+ | Given | 11/02/2017 | 17 g | | | | | 17:46 | | | | | | PDT | | | | +-------+ +------+---+---+ +---+---+ | | | +---+---+ + +-------+ +------+---+---+ | polyethylene glycol (MIRALAX) | Given | | 34 g | | | | packet 34 g 34 g, feeding tube, | | 8 21:27 | | | | | THREE TIMES DAILY NEEDED, | | PDT | | | | | Starting 11/10/17 at 1004, | | | | | | | Until 12/06/17 at 2052, 1st | | | | | | | line - for no BM for 2 days | | | | | | + +-------+ +------+---+---+ +-------+ +------+---+---+ | Given | | 34 g | | | | | 8 09:01 | | | | | | PDT | | | | +-------+ +------+---+---+ | Given | | 34 g | | | | | 8 08:29 | | | | | | PDT | | | | +-------+ +------+---+---+ +---+---+ | | | +---+---+ + +-------+ +--------+---+---+ | potassium chloride (KAOCHLOR) | Given | | 20 mEq | | | | liquid 10% 20 mEq 20 mEq, | | 8 10:34 | | | | | feeding tube, ONCE, 1 dose, [facility] | | PDT | | | | | 10/17/17 at 0845 | | | | | | + +-------+ +--------+---+---+ +---+---+ | | | +---+---+ + +-------+ +--------+---+---+ | potassium chloride (KLOR-CON) | Given | 09/04/2017 | 20 mEq | | | | packet 20 mEq 20 mEq, feeding | | 21:34 | | | | | tube, ONCE, 1 dose, 09/04/17 at | | PDT | | | | | 2200 | | | | | | + +-------+ +--------+---+---+ +---+---+ | | | +---+---+ + +-------+ +--------+---+---+ | potassium chloride (KLOR-CON) | Given | | 20 mEq | | | | packet 20 mEq 20 mEq, feeding | | 8 12:43 | | | | | tube, EVERY 4 HOURS, 2 doses, | | PDT | | | | | First dose on 09/08/17 at | | | | | | | 1230, Last dose on 09/08/17 at | | | | | | | 1630 | | | | | | + +-------+ +--------+---+---+ +-------+ +--------+---+---+ | Given | | 20 mEq | | | | | 8 15:36 | | | | | | PDT | | | | +-------+ +--------+---+---+ +---+---+ | | | +---+---+ + +-------+ +--------+---+---+ | potassium chloride (KLOR-CON) | Given | | 20 mEq | | | | packet 20 mEq 20 mEq, oral, | | 8 08:09 | | | | | ONCE, 1 dose, 10/07/17 at 0715 | | PDT | | | | + +-------+ +--------+---+---+ +---+---+ | | | +---+---+ + +-------+ +--------+---+---+ | potassium chloride (KLOR-CON) | Given | | 20 mEq | | | | packet 20 mEq 20 mEq, oral, | | 8 07:48 | | | | | ONCE, 1 dose, 10/14/17 at 0745 | | PDT | | | | + +-------+ +--------+---+---+ +---+---+ | | | +---+---+ + +-------+ +--------+---+---+ | potassium chloride (KLOR-CON) | Given | 09/04/2017 | 40 mEq | | | | packet 40 mEq 40 mEq, feeding | | 17:46 | | | | | tube, ONCE, 1 dose, 09/04/17 at | | PDT | | | | | 1815 | | | | | | + +-------+ +--------+---+---+ +---+---+ | | | +---+---+ + +-------+ +--------+---+---+ | potassium chloride (KLOR-CON) | Given | | 40 mEq | | | | packet 40 mEq 40 mEq, feeding | | 8 04:35 | | | | | tube, ONCE, 1 dose, [facility] 10/10/17 | | PDT | | | | | at 0400 | | | | | | + +-------+ +--------+---+---+ +---+---+ | | | +---+---+ + +-------+ +--------+---+---+ | potassium chloride (KLOR-CON) | Given | | 40 mEq | | | | packet 40 mEq 40 mEq, feeding | | 8 02:07 | | | | | tube, ONCE, 1 dose, [facility] 10/11/17 | | PDT | | | | | at 0245 | | | | | | + +-------+ +--------+---+---+ +---+---+ | | | +---+---+ + +-------+ +--------+---+---+ | potassium chloride (KLOR-CON) | Given | | 40 mEq | | | | packet 40 mEq 40 mEq, feeding | | 8 13:18 | | | | | tube, ONCE, 1 dose, [place] 10/13/17 | | PDT | | | | | at 1315 | | | | | | + +-------+ +--------+---+---+ +---+---+ | | | +---+---+ + +-------+ +--------+---+---+ | potassium chloride (KLOR-CON) | Given | | 40 mEq | | | | packet 40 mEq 40 mEq, feeding | | 8 16:24 | | | | | tube, ONCE, 1 dose, 10/18/17 | | PDT | | | | | at 1630 | | | | | | + +-------+ +--------+---+---+ +---+---+ | | | +---+---+ + +---------+ +--------+-------+---+ | potassium chloride 20 mEq / 260 | New Bag | 08/31/2017 | 20 mEq | 130 | | | mL NS IV PERIPHERAL 20 mEq, | | 20:51 | | mL/hr | | | intravenous, ONCE, 1 dose, Sat | | PDT | | | | | 08/31/17 at 2044 | | | | | | + +---------+ +--------+-------+---+ +---+---+ | | | +---+---+ + +---------+ +--------+-------+---+ | potassium chloride 20 mEq / 260 | New Bag | | 20 mEq | 130 | | | mL NS IV PERIPHERAL 20 mEq, | | 8 05:22 | | mL/hr | | | intravenous, EVERY 2 HOURS, 2 | | PDT | | | | | doses, First dose on Sat09/06/17 | | | | | | | at 0600, Last dose on Sat09/06/17 | | | | | | | at 0800 | | | | | | + +---------+ +--------+-------+---+ +---------+ +--------+-------+---+ | New Bag | | 20 mEq | 130 | | | | 8 07:55 | | mL/hr | | | | PDT | | | | +---------+ +--------+-------+---+ +---+---+ | | | +---+---+ + +---------+ +--------+-------+---+ | potassium chloride 20 mEq / 260 | New Bag | | 20 mEq | 130 | | | mL NS IV PERIPHERAL 20 mEq, | | 8 08:00 | | mL/hr | | | intravenous, EVERY 2 HOURS, 2 | | PDT | | | | | doses, First dose on [facility] 09/12/17 | | | | | | | at 0815, Last dose on [facility] 09/12/17 | | | | | | | at 1015 | | | | | | + +---------+ +--------+-------+---+ +---+---+ | | | +---+---+ + +---------+ +--------+-------+---+ | potassium chloride 20 mEq / 260 | New Bag | | 20 mEq | 130 | | | mL NS IV PERIPHERAL 20 mEq, | | 8 11:33 | | mL/hr | | | intravenous, EVERY 2 HOURS, 2 | | PDT | | | | | doses, First dose on Sat09/13/17 | | | | | | | at 1100, Last dose on Sat09/13/17 | | | | | | | at 1300 | | | | | | + +---------+ +--------+-------+---+ +---------+ +--------+-------+---+ | New Bag | | 20 mEq | 130 | | | | 8 14:18 | | mL/hr | | | | PDT | | | | +---------+ +--------+-------+---+ +---+---+ | | | +---+---+ + +---------+ +--------+-------+---+ | potassium chloride 20 mEq / 260 | New Bag | | 20 mEq | 130 | | | mL NS IV PERIPHERAL 20 mEq, | | 8 17:05 | | mL/hr | | | intravenous, EVERY 2 HOURS, 2 | | PDT | | | | | doses, First dose on 09/14/17 | | | | | | | at 1615, Last dose on Sat09/14/17 | | | | | | | at 1815 | | | | | | + +---------+ +--------+-------+---+ +---------+ +--------+-------+---+ | New Bag | | 20 mEq | 130 | | | | 8 19:25 | | mL/hr | | | | PDT | | | | +---------+ +--------+-------+---+ +---+---+ | | | +---+---+ + +---------+ +--------+---+---+ | potassium chloride in water IV | New Bag | 09/02/2017 | 20 mEq | | | | (CENTRAL LINE-ICU) 20 mEq 20 | | 04:57 | | | | | mEq, intravenous, EVERY 1 HOUR, 2 | | PDT | | | | | doses, First dose on Sat09/02/17 | | | | | | | at 0300, Last dose on Sat09/02/17 | | | | | | | at 0400 | | | | | | + +---------+ +--------+---+---+ +---------+ +--------+---+---+ | New Bag | 09/02/2017 | 20 mEq | | | | | 06:18 | | | | | | PDT | | | | +---------+ +--------+---+---+ +---+---+ | | | +---+---+ + +---------+ +--------+---+---+ | potassium chloride in water IV | New Bag | 09/01/2017 | 10 mEq | | | | 20 mEq 20 mEq, intravenous, | | 09:49 | | | | | ONCE, 1 dose, 09/01/17 at 0915 | | PDT | | | | + +---------+ +--------+---+---+ +---+---+ | | | +---+---+ + +---------+ +--------+---+---+ | potassium chloride IV (central | New Bag | 09/03/2017 | 40 mEq | | | | line) 40 mEq 40 mEq, | | 10:06 | | | | | intravenous, ONCE, 1 dose, Tue | | PDT | | | | | 09/03/17 at 0600 | | | | | | + +---------+ +--------+---+---+ +---+---+ | | | +---+---+ + +---------+ +--------+---+---+ | potassium chloride IV | New Bag | | 20 mEq | | | | (peripheral line) 20 mEq 20 mEq, | | 8 09:43 | | | | | intravenous, ONCE, 1 dose, Tue | | PDT | | | | | 10/22/17 at 0930 | | | | | | + +---------+ +--------+---+---+ +---+---+ | | | +---+---+ + +---------+ +---------+---+---+ | potassium phosphate IV 15 mmol | New Bag | 09/02/2017 | 15 mmol | | | | 15 mmol, intravenous, ONCE, 1 | | 09:58 | | | | | dose, 09/02/17 at 1000 | | PDT | | | | + +---------+ +---------+---+---+ +---+---+ | | | +---+---+ + +---------+ +---------+---+---+ | potassium phosphate IV 15 mmol | New Bag | | 15 mmol | | | | 15 mmol, intravenous, ONCE, 1 | | 8 08:00 | | | | | dose, 10/14/17 at 0745 | | PDT | | | | + +---------+ +---------+---+---+ +---+---+ | | | +---+---+ + +---------+ +---------+---+---+ | potassium phosphate IV 15 mmol | New Bag | | 15 mmol | | | | 15 mmol, intravenous, ONCE, 1 | | 8 16:04 | | | | | dose, 10/25/17 at 1530 | | PDT | | | | + +---------+ +---------+---+---+ +---+---+ | | | +---+---+ + +---------+ +---------+ +---+ | potassium phosphate IV 30 mmol | New Bag | 09/04/2017 | 30 mmol | 50 mL/hr | | | 30 mmol, intravenous, ONCE, 1 | | 05:12 | | | | | dose, 09/04/17 at 0330 | | PDT | | | | + +---------+ +---------+ +---+ +---+---+ | | | +---+---+ + +---------+ +---------+-------+---+ | potassium phosphate IV 30 mmol | New Bag | | 30 mmol | 125 | | | 30 mmol, intravenous, ONCE, 1 | | 8 04:42 | | mL/hr | | | dose, 09/07/17 at 0230 | | PDT | | | | + +---------+ +---------+-------+---+ +---+---+ | | | +---+---+ + +---------+ +---------+-------+---+ | potassium phosphate IV 30 mmol | New Bag | 09/27/2017 | 30 mmol | 125 | | | 30 mmol, intravenous, ONCE, 1 | | 10:32 | | mL/hr | | | dose, 09/27/17 at 0815 | | PDT | | | | + +---------+ +---------+-------+---+ +---+---+ | | | +---+---+ + +-------+ + +---+---+ | potassium, sodium phosphates | Given | | 1 packet | | | | (NEUTRA-PHOS, PHOS-NAK) | | 8 11:29 | | | | | 280-160-250 mg packet 1 packet 1 | | PDT | | | | | packet, feeding tube, ONCE, 1 | | | | | | | dose, 10/21/17 at 1015 | | | | | | + +-------+ + +---+---+ +---+---+ | | | +---+---+ + +-------+ +---------+---+---+ | potassium, sodium phosphates | Given | | 2 | | | | (NEUTRA-PHOS, PHOS-NAK) | | 8 08:19 | packets | | | | 280-160-250 mg packet 2 packet 2 | | PDT | | | | | packet, feeding tube, TWICE | | | | | | | DAILY, 2 doses, First dose on Sho | | | | | | | 09/05/17 at 0800, Last dose on | | | | | | | Sho 09/05/17 at 2100 | | | | | | + +-------+ +---------+---+---+ +-------+ +---------+---+---+ | Given | | 2 | | | | | 8 21:16 | packets | | | | | PDT | | | | +-------+ +---------+---+---+ +---+---+ | | | +---+---+ + + + +---+---+---+ | probiotic kefir (ROBERT'S KEFIR) | Given - | | | | | | oral, TWICE DAILY, First dose | Food | 8 08:19 | | | | | on 09/02/17 at 2100, Until | | PDT | | | | | Discontinued | | | | | | + + + +---+---+---+ + + +--------+---+---+ | Given - Food | | 1 each | | | | | 8 21:16 | | | | | | PDT | | | | + + +--------+---+---+ | Given - Food | | | | | | | 8 07:52 | | | | | | PDT | | | | + + +--------+---+---+ +---+---+ | | | +---+---+ + + + +---+---+---+ | probiotic kefir (ROBERT'S KEFIR) | Given - | | | | | | feeding tube, TWICE DAILY, | Food | 8 21:27 | | | | | First dose on [facility] 10/10/17 at | | PDT | | | | | 2130, Until Discontinued | | | | | | + + + +---+---+---+ + + + +---+---+ | Given - Food | | 0.5 each | | | | | 8 11:19 | | | | | | PDT | | | | + + + +---+---+ | Given - Food | | | | | | | 8 08:41 | | | | | | PDT | | | | + + + +---+---+ +---+---+ | | | +---+---+ + + + +---+---+---+ | probiotic kefir (ROBERT'S KEFIR) | Given - | | | | | | oral, THREE TIMES DAILY, First | Food | 8 15:55 | | | | | dose on Sat10/29/17 at 1600, Until | | PDT | | | | | Discontinued | | | | | | + + + +---+---+---+ + + +---+---+---+ | Given - Food | | | | | | | 8 21:27 | | | | | | PDT | | | | + + +---+---+---+ | Given - Food | | | | | | | 8 08:10 | | | | | | PDT | | | | + + +---+---+---+ +---+---+ | | | +---+---+ + + + +---+---+---+ | probiotic kefir (ROBERT'S KEFIR) | Given - | 12/05/2017 | | | | | feeding tube, THREE TIMES | Food | 17:41 | | | | | DAILY, First dose on Sat11/07/17 | | PDT | | | | | at 1600, Until Discontinued | | | | | | + + + +---+---+---+ + + +---+---+---+ | Given - Food | 12/05/2017 | | | | | | 22:25 | | | | | | PDT | | | | + + +---+---+---+ | Given - Food | | | | | | | 8 08:14 | | | | | | PDT | | | | + + +---+---+---+ +---+---+ | | | +---+---+ + +-------+ +--------+---+---+ | prochlorperazine (COMPAZINE) | Given | | 2.5 mg | | | | injection 2.5 mg 2.5 mg, | | 8 23:26 | | | | | intravenous, EVERY 6 HOURS | | PDT | | | | | NEEDED, Starting Sat09/09/17 at | | | | | | | 2112, Until Sat09/09/17 at 2356, | | | | | | | nausea/vomiting, second line | | | | | | + +-------+ +--------+---+---+ +---+---+ | | | +---+---+ + +-------+ +------+---+---+ | prochlorperazine (COMPAZINE) | Given | | 5 mg | | | | injection 5 mg 5 mg, | | 8 20:21 | | | | | intravenous, EVERY 6 HOURS | | PDT | | | | | NEEDED, Starting 09/09/17 at | | | | | | | 2355, Until Sat10/29/17 at 0744, | | | | | | | nausea/vomiting, second line | | | | | | + +-------+ +------+---+---+ +-------+ +------+---+---+ | Given | 10/27/2017 | 5 mg | | | | | 18:28 | | | | | | PDT | | | | +-------+ +------+---+---+ | Given | 10/28/2017 | 5 mg | | | | | 20:54 | | | | | | PDT | | | | +-------+ +------+---+---+ +---+---+ | | | +---+---+ + +-------+ +------+---+---+ | prochlorperazine (COMPAZINE) | Given | 11/01/2017 | 5 mg | | | | injection 5 mg 5 mg, | | 10:39 | | | | | intravenous, EVERY 6 HOURS | | PDT | | | | | NEEDED, Starting Sat10/29/17 at | | | | | | | 0743, Until Sat12/06/17 at 2052, | | | | | | | n/v, if unable to take oral form | | | | | | | of medication | | | | | | + +-------+ +------+---+---+ +-------+ +------+---+---+ | Given | | 5 mg | | | | | 8 12:20 | | | | | | PDT | | | | +-------+ +------+---+---+ | Given | | 5 mg | | | | | 8 20:58 | | | | | | PDT | | | | +-------+ +------+---+---+ +---+---+ | | | +---+---+ + +-------+ +------+---+---+ | prochlorperazine (COMPAZINE) | Given | | 5 mg | | | | tablet 5 mg 5 mg, feeding tube, | | 8 07:47 | | | | | EVERY 6 HOURS NEEDED, Starting | | PDT | | | | | 10/29/17 at 0742, Until Fri | | | | | | | 12/06/17 at 2052, nausea/vomiting, | | | | | | | second line | | | | | | + +-------+ +------+---+---+ +-------+ +------+---+---+ | Given | | 5 mg | | | | | 8 05:36 | | | | | | PDT | | | | +-------+ +------+---+---+ | Given | | 5 mg | | | | | 8 18:07 | | | | | | PDT | | | | +-------+ +------+---+---+ +---+---+ | | | +---+---+ + +-------+ +---------+---+---+ | promethazine (PHENERGAN) | Given | | 6.25 mg | | | | injection 6.25 mg 6.25 mg, | | 8 23:48 | | | | | intravenous, EVERY 6 HOURS | | PDT | | | | | NEEDED, Starting 09/09/17 at | | | | | | | 2358, Until Sat11/12/17 at 0740, | | | | | | | nausea/vomiting, third line | | | | | | + +-------+ +---------+---+---+ +-------+ +---------+---+---+ | Given | | 6.25 mg | | | | | 8 19:03 | | | | | | PDT | | | | +-------+ +---------+---+---+ | Given | 10/28/2017 | 6.25 mg | | | | | 00:25 | | | | | | PDT | | | | +-------+ +---------+---+---+ +---+---+ | | | +---+---+ + + + +-------+---+---+ | propofol (DIPRIVAN) bolus from | Bolus | 09/04/2017 | 20 mg | | | | continuous infusion 10-20 mg | from | 04:30 | | | | | intravenous, EVERY 15 MINUTES | Same Bag | PDT | | | | | NEEDED, Starting 08/31/17 at | | | | | | | 1858, Until 09/04/17 at 1011, | | | | | | | RASS greater than or equal to +2 | | | | | | | OR BSAS greater than +3 OR breath | | | | | | | stacking greater than 5 per | | | | | | | minute | | | | | | + + + +-------+---+---+ + + +-------+---+---+ | Bolus from Same Bag | 09/04/2017 | 20 mg | | | | | 05:15 | | | | | | PDT | | | | + + +-------+---+---+ | Bolus from Same Bag | 09/04/2017 | 20 mg | | | | | 07:00 | | | | | | PDT | | | | + + +-------+---+---+ +---+---+ | | | +---+---+ + + + +-------+---+---+ | propofol (DIPRIVAN) bolus from | Bolus | 09/04/2017 | 20 mg | | | | continuous infusion 10-20 mg | from | 11:00 | | | | | intravenous, EVERY 15 MINUTES | Same Bag | PDT | | | | | NEEDED, Starting Sat09/04/17 at | | | | | | | 1014, Until Sat09/04/17 at 1534, | | | | | | | RASS greater than or equal to +2 | | | | | | | OR BSAS greater than +3 OR breath | | | | | | | stacking greater than 5 per | | | | | | | minute | | | | | | + + + +-------+---+---+ + + +-------+---+---+ | Bolus from Same Bag | 09/04/2017 | 20 mg | | | | | 15:22 | | | | | | PDT | | | | + + +-------+---+---+ + +---+ | | | + +---+ | propofol (DIPRIVAN) injection | | | 1 dose, Starting 08/31/17 at | | | 1656, Until Discontinued | | + +---+ | | | + +---+ + + + + +-------+---+ | propofol (DIPRIVAN) injection | Rate/Dos | 09/04/2017 | 15 | 6.89 | | | 0.5-50 mcg/kg/min | e Verify | 06:00 | mcg/kg/m | mL/hr | | | 76.5 kg Dosing weight | | PDT | in | | | | (0.2295-22.95 mL/hr, rounded to | | | | | | | 0.23-22.95 mL/hr), intravenous, | | | | | | | CONTINUOUS, Starting 08/31/17 | | | | | | | at 1930, Until 09/04/17 at 1011 | | | | | | + + + + +-------+---+ + + + +-------+---+ | Rate/Dose Verify | 09/04/2017 | 15 | 6.89 | | | | 07:00 | mcg/kg/m | mL/hr | | | | PDT | in | | | + + + +-------+---+ | Restarted | 09/04/2017 | 5 | 2.3 | | | | 08:21 | mcg/kg/m | mL/hr | | | | PDT | in | | | + + + +-------+---+ +---+---+ | | | +---+---+ + + + + +-------+---+ | propofol (DIPRIVAN) injection | Bolus | 09/04/2017 | 15 | 6.89 | | | 0.5-50 mcg/kg/min | from | 10:32 | mcg/kg/m | mL/hr | | | 76.5 kg Dosing weight | Same Bag | PDT | in | | | | (0.2295-22.95 mL/hr, rounded to | | | | | | | 0.23-22.95 mL/hr), intravenous, | | | | | | | CONTINUOUS, Starting Sat09/04/17 | | | | | | | at 1045, Until Sat09/04/17 at 1534 | | | | | | + + + + +-------+---+ +---+---+ | | | +---+---+ + + + + +-------+---+ | propofol (DIPRIVAN) injection | Rate/Dos | | 10 | 4.59 | | | 0.5-50 mcg/kg/min | e Change | 8 08:29 | mcg/kg/m | mL/hr | | | 76.5 kg Dosing weight | | PDT | in | | | | (0.2295-22.95 mL/hr, rounded to | | | | | | | 0.23-22.95 mL/hr), intravenous, | | | | | | | CONTINUOUS, Starting 10/12/17 | | | | | | | at 2014, Until 10/14/17 at | | | | | | | 0646 | | | | | | + + + + +-------+---+ + + + +-------+---+ | Rate/Dose Change | | 5 | 2.3 | | | | 8 09:00 | mcg/kg/m | mL/hr | | | | PDT | in | | | + + + +-------+---+ | Rate/Dose Verify | | 5 | 2.3 | | | | 8 10:00 | mcg/kg/m | mL/hr | | | | PDT | in | | | + + + +-------+---+ +---+---+ | | | +---+---+ + +-------+ +-------+---+---+ | propranolol (INDERAL) tablet 10 | Given | | 10 mg | | | | mg 10 mg, feeding tube, THREE | | 8 21:26 | | | | | TIMES DAILY, First dose on Sun | | PDT | | | | | 10/20/17 at 1600, Until | | | | | | | Discontinued | | | | | | + +-------+ +-------+---+---+ +---+---+ | | | +---+---+ + +-------+ +-------+---+---+ | propranolol (INDERAL) tablet 20 | Given | | 20 mg | | | | mg 20 mg, feeding tube, THREE | | 8 21:43 | | | | | TIMES DAILY, First dose on Fri | | PDT | | | | | 10/11/17 at 1600, Until | | | | | | | Discontinued | | | | | | + +-------+ +-------+---+---+ +-------+ +-------+---+---+ | Given | | 20 mg | | | | | 8 16:20 | | | | | | PDT | | | | +-------+ +-------+---+---+ | Given | | 20 mg | | | | | 8 21:54 | | | | | | PDT | | | | +-------+ +-------+---+---+ +---+---+ | | | +---+---+ + +-------+ +--------+---+---+ | QUEtiapine (SEROQUEL) tablet | Given | | 100 mg | | | | 100 mg 100 mg, oral, AT BEDTIME, | | 8 20:50 | | | | | First dose on Sat11/20/17 at | | PDT | | | | | 2000, Until Discontinued | | | | | | + +-------+ +--------+---+---+ +-------+ +--------+---+---+ | Given | | 100 mg | | | | | 8 19:52 | | | | | | PDT | | | | +-------+ +--------+---+---+ | Given | | 100 mg | | | | | 8 20:56 | | | | | | PDT | | | | +-------+ +--------+---+---+ +---+---+ | | | +---+---+ + +-------+ +--------+---+---+ | QUEtiapine (SEROQUEL) tablet | Given | 11/28/2017 | 100 mg | | | | 100 mg 100 mg, feeding tube, AT | | 21:22 | | | | | BEDTIME, First dose on Sat | | PDT | | | | | 11/23/17 at 2000, Until | | | | | | | Discontinued | | | | | | + +-------+ +--------+---+---+ +-------+ +--------+---+---+ | Given | 11/29/2017 | 100 mg | | | | | 21:07 | | | | | | PDT | | | | +-------+ +--------+---+---+ | Given | 11/30/2017 | 100 mg | | | | | 21:09 | | | | | | PDT | | | | +-------+ +--------+---+---+ +---+---+ | | | +---+---+ + +-------+ +---------+---+---+ | QUEtiapine (SEROQUEL) tablet | Given | | 12.5 mg | | | | 12.5 mg 12.5 mg, oral, ONCE, 1 | | 8 01:18 | | | | | dose, 10/15/17 at 0115 | | PDT | | | | + +-------+ +---------+---+---+ +---+---+ | | | +---+---+ + +-------+ +-------+---+---+ | QUEtiapine (SEROQUEL) tablet 25 | Given | | 25 mg | | | | mg 25 mg, oral, AT BEDTIME, | | 8 21:45 | | | | | First dose on 09/23/17 at | | PDT | | | | | 2200, Until Discontinued | | | | | | + +-------+ +-------+---+---+ +---+---+ | | | +---+---+ + +-------+ +-------+---+---+ | QUEtiapine (SEROQUEL) tablet 25 | Given | | 25 mg | | | | mg 25 mg, oral, EVERY 12 HOURS | | 8 01:46 | | | | | NEEDED, Starting 11/17/17 | | PDT | | | | | at 0721, Until 11/23/17 at | | | | | | | 1512, agitation | | | | | | + +-------+ +-------+---+---+ +-------+ +-------+---+---+ | Given | | 25 mg | | | | | 8 01:36 | | | | | | PDT | | | | +-------+ +-------+---+---+ | Given | | 25 mg | | | | | 8 14:57 | | | | | | PDT | | | | +-------+ +-------+---+---+ +---+---+ | | | +---+---+ + +-------+ +-------+---+---+ | QUEtiapine (SEROQUEL) tablet 25 | Given | | 25 mg | | | | mg 25 mg, feeding tube, EVERY | | 8 13:59 | | | | | 12 HOURS NEEDED, Starting Sat | | PDT | | | | | 11/23/17 at 1512, Until [place] | | | | | | | 11/24/17 at 1555, agitation | | | | | | + +-------+ +-------+---+---+ +---+---+ | | | +---+---+ + +-------+ +-------+---+---+ | QUEtiapine (SEROQUEL) tablet 25 | Given | 11/27/2017 | 25 mg | | | | mg 25 mg, feeding tube, EVERY 8 | | 13:22 | | | | | HOURS NEEDED, Starting Sun | | PDT | | | | | 11/24/17 at 1600, Until [facility] 11/28/17 | | | | | | | at 0828, agitation | | | | | | + +-------+ +-------+---+---+ +---+---+ | | | +---+---+ + +-------+ +-------+---+---+ | QUEtiapine (SEROQUEL) tablet 25 | Given | | 25 mg | | | | mg 25 mg, oral, ONCE, 1 dose, | | 8 16:45 | | | | | 11/24/17 at 1630 | | PDT | | | | + +-------+ +-------+---+---+ +---+---+ | | | +---+---+ + +-------+ +-------+---+---+ | QUEtiapine (SEROQUEL) tablet 25 | Given | 11/27/2017 | 25 mg | | | | mg 25 mg, oral, ONCE, 1 dose, | | 18:03 | | | | | 11/27/17 at 1730 | | PDT | | | | + +-------+ +-------+---+---+ +---+---+ | | | +---+---+ + +-------+ +-------+---+---+ | QUEtiapine (SEROQUEL) tablet 50 | Given | | 50 mg | | | | mg 50 mg, oral, AT BEDTIME, | | 8 21:22 | | | | | First dose on 11/17/17 at | | PDT | | | | | 2200, Until Discontinued | | | | | | + +-------+ +-------+---+---+ +-------+ +-------+---+---+ | Given | | 50 mg | | | | | 8 22:29 | | | | | | PDT | | | | +-------+ +-------+---+---+ | Given | | 50 mg | | | | | 8 21:43 | | | | | | PDT | | | | +-------+ +-------+---+---+ +---+---+ | | | +---+---+ + +-------+ +-------+---+---+ | QUEtiapine (SEROQUEL) tablet 50 | Given | 11/30/2017 | 50 mg | | | | mg 50 mg, feeding tube, TWICE | | 09:28 | | | | | DAILY, First dose on [facility] 11/28/17 | | PDT | | | | | at 0845, Until Discontinued | | | | | | + +-------+ +-------+---+---+ +-------+ +-------+---+---+ | Given | 11/30/2017 | 50 mg | | | | | 14:23 | | | | | | PDT | | | | +-------+ +-------+---+---+ | Given | 12/01/2017 | 50 mg | | | | | 08:46 | | | | | | PDT | | | | +-------+ +-------+---+---+ +---+---+ | | | +---+---+ + +-------+ +-------+---+---+ | QUEtiapine (SEROQUEL) tablet 50 | Given | 11/30/2017 | 50 mg | | | | mg 50 mg, oral, EVERY 6 HOURS | | 01:19 | | | | | NEEDED, Starting [facility] 11/28/17 at | | PDT | | | | | 1612, Until 12/01/17 at 0842, | | | | | | | agitation | | | | | | + +-------+ +-------+---+---+ +-------+ +-------+---+---+ | Given | 11/30/2017 | 50 mg | | | | | 11:32 | | | | | | PDT | | | | +-------+ +-------+---+---+ | Given | 12/01/2017 | 50 mg | | | | | 01:25 | | | | | | PDT | | | | +-------+ +-------+---+---+ +---+---+ | | | +---+---+ + +-------+ +--------+---+---+ | rocuronium (ZEMURON) injection | Given | 09/01/2017 | 100 mg | | | | 1 dose, Starting 09/01/17 at | | 10:45 | | | | | 1038, Until 09/01/17 at 1045 | | PDT | | | | + +-------+ +--------+---+---+ +---+---+ | | | +---+---+ + +-------+ +---------+---+---+ | senna (SENOKOT) liquid 17.6 mg | Given | | 17.6 mg | | | | 17.6 mg (10 mL), feeding tube, | | 8 21:02 | | | | | TWICE DAILY, First dose on Sat | | PDT | | | | | 09/04/17 at 0900, Until | | | | | | | Discontinued | | | | | | + +-------+ +---------+---+---+ +-------+ +---------+---+---+ | Given | | 17.6 mg | | | | | 8 09:36 | | | | | | PDT | | | | +-------+ +---------+---+---+ | Given | | 17.6 mg | | | | | 8 21:07 | | | | | | PDT | | | | +-------+ +---------+---+---+ +---+---+ | | | +---+---+ + +-------+ +---------+---+---+ | senna (SENOKOT) liquid 17.6 mg | Given | | 17.6 mg | | | | 17.6 mg (10 mL), feeding tube, | | 8 21:26 | | | | | TWICE DAILY, First dose on Sun | | PDT | | | | | 10/13/17 at 2100, Until | | | | | | | Discontinued | | | | | | + +-------+ +---------+---+---+ +-------+ +---------+---+---+ | Given | | 17.6 mg | | | | | 8 08:39 | | | | | | PDT | | | | +-------+ +---------+---+---+ | Given | | 17.6 mg | | | | | 8 21:30 | | | | | | PDT | | | | +-------+ +---------+---+---+ +---+---+ | | | +---+---+ + +-------+ +--------+---+---+ | senna (SENOKOT) liquid 8.8 mg | Given | 12/05/2017 | 8.8 mg | | | | 8.8 mg (5 mL), feeding tube, | | 08:25 | | | | | TWICE DAILY, First dose on Sun | | PDT | | | | | 11/10/17 at 2100, Until | | | | | | | Discontinued | | | | | | + +-------+ +--------+---+---+ +-------+ +--------+---+---+ | Given | 12/05/2017 | 8.8 mg | | | | | 22:24 | | | | | | PDT | | | | +-------+ +--------+---+---+ | Given | | 8.8 mg | | | | | 8 08:12 | | | | | | PDT | | | | +-------+ +--------+---+---+ +---+---+ | | | +---+---+ + +-------+ +---------+---+---+ | senna (SENOKOT) tablet 2 tablet | Given | 09/02/2017 | 2 | | | | 2 tablet, oral, TWICE DAILY, | | 08:54 | tablets | | | | First dose on 08/31/17 at 2100, | | PDT | | | | | Until Discontinued | | | | | | + +-------+ +---------+---+---+ +-------+ +---------+---+---+ | Given | 09/02/2017 | 2 | | | | | 21:23 | tablets | | | | | PDT | | | | +-------+ +---------+---+---+ +---+---+ | | | +---+---+ + +-------+ + +---+---+ | senna-docusate (SENOKOT S) | Given | | 1 tablet | | | | 8.6-50 mg 1 tablet 1 tablet, | | 8 09:17 | | | | | oral, TWICE DAILY, First dose on | | PDT | | | | | 11/02/17 at 1330, Until | | | | | | | Discontinued | | | | | | + +-------+ + +---+---+ +-------+ + +---+---+ | Given | | 1 tablet | | | | | 8 20:15 | | | | | | PDT | | | | +-------+ + +---+---+ | Given | | 1 tablet | | | | | 8 07:47 | | | | | | PDT | | | | +-------+ + +---+---+ +---+---+ | | | +---+---+ + + + + + +---+ | sodium chloride 0.9% IV | Rate/Dos | | 75 mL/hr | 75 mL/hr | | | infusion 75 mL/hr, intravenous, | e Verify | 8 14:00 | | | | | CONTINUOUS, Starting [place] 10/10/17 | | PDT | | | | | at 0430, Until Sat10/11/17 at | | | | | | | 1334 | | | | | | + + + + + +---+ + + + + +---+ | Rate/Dose Verify | | 75 mL/hr | 75 mL/hr | | | | 8 15:00 | | | | | | PDT | | | | + + + + +---+ | Rate/Dose Verify | | 75 mL/hr | 75 mL/hr | | | | 8 16:00 | | | | | | PDT | | | | + + + + +---+ +---+---+ | | | +---+---+ + +-------+ +--------+---+---+ | thiamine (VITAMIN B-1) | Given | 10/04/2017 | 100 mg | | | | injection 100 mg 100 mg, | | 08:06 | | | | | intravenous, DAILY, First dose on | | PDT | | | | | 09/24/17 at 1445, Until | | | | | | | Discontinued | | | | | | + +-------+ +--------+---+---+ +-------+ +--------+---+---+ | Given | 10/05/2017 | 100 mg | | | | | 07:45 | | | | | | PDT | | | | +-------+ +--------+---+---+ | Given | | 100 mg | | | | | 8 10:07 | | | | | | PDT | | | | +-------+ +--------+---+---+ +---+---+ | | | +---+---+ + +-------+ +--------+---+---+ | thiamine tablet 100 mg 100 mg, | Given | 09/01/2017 | 100 mg | | | | oral, DAILY, 3 doses, First dose | | 22:37 | | | | | on 09/01/17 at 2030, Last dose | | PDT | | | | | on 09/03/17 at 0900 | | | | | | + +-------+ +--------+---+---+ +-------+ +--------+---+---+ | Given | 09/02/2017 | 100 mg | | | | | 08:54 | | | | | | PDT | | | | +-------+ +--------+---+---+ | Given | 09/03/2017 | 100 mg | | | | | 11:38 | | | | | | PDT | | | | +-------+ +--------+---+---+ +---+---+ | | | +---+---+ + +-------+ +--------+---+---+ | thiamine tablet 100 mg 100 mg, | Given | | 100 mg | | | | oral, DAILY, 3 doses, First dose | | 8 18:30 | | | | | on 09/07/17 at 1930, Last | | PDT | | | | | dose on 09/09/17 at 0900 | | | | | | + +-------+ +--------+---+---+ +-------+ +--------+---+---+ | Given | | 100 mg | | | | | 8 08:21 | | | | | | PDT | | | | +-------+ +--------+---+---+ | Given | | 100 mg | | | | | 8 09:21 | | | | | | PDT | | | | +-------+ +--------+---+---+ +---+---+ | | | +---+---+ + +-------+ +--------+---+---+ | thiamine tablet 100 mg 100 mg, | Given | | 100 mg | | | | oral, DAILY, First dose on Sat | | 8 12:03 | | | | | 09/21/17 at 1230, Until | | PDT | | | | | Discontinued | | | | | | + +-------+ +--------+---+---+ +-------+ +--------+---+---+ | Given | | 100 mg | | | | | 8 08:41 | | | | | | PDT | | | | +-------+ +--------+---+---+ +---+---+ | | | +---+---+ + +-------+ +--------+---+---+ | thiamine tablet 100 mg 100 mg, | Given | | 100 mg | | | | feeding tube, DAILY, First dose | | 8 08:52 | | | | | on Sat10/07/17 at 0900, Until | | PDT | | | | | Discontinued | | | | | | + +-------+ +--------+---+---+ +-------+ +--------+---+---+ | Given | | 100 mg | | | | | 8 08:59 | | | | | | PDT | | | | +-------+ +--------+---+---+ | Given | | 100 mg | | | | | 8 08:41 | | | | | | PDT | | | | +-------+ +--------+---+---+ +---+---+ | | | +---+---+ + +-------+ +--------+---+---+ | traZODone (DESYREL) tablet 100 | Given | | 100 mg | | | | mg 100 mg, feeding tube, AT | | 8 22:29 | | | | | BEDTIME, First dose on Sat | | PDT | | | | | 11/16/17 at 2200, Until | | | | | | | Discontinued | | | | | | + +-------+ +--------+---+---+ +-------+ +--------+---+---+ | Given | | 100 mg | | | | | 8 21:43 | | | | | | PDT | | | | +-------+ +--------+---+---+ | Given | | 100 mg | | | | | 8 20:50 | | | | | | PDT | | | | +-------+ +--------+---+---+ +---+---+ | | | +---+---+ + +-------+ +--------+---+---+ | traZODone (DESYREL) tablet 100 | Given | | 100 mg | | | | mg 100 mg, feeding tube, AT | | 8 19:53 | | | | | BEDTIME, First dose on Sho | | PDT | | | | | 11/21/17 at 1999, Until | | | | | | | Discontinued | | | | | | + +-------+ +--------+---+---+ +---+---+ | | | +---+---+ + +-------+ +--------+---+---+ | traZODone (DESYREL) tablet 150 | Given | | 150 mg | | | | mg 150 mg, feeding tube, AT | | 8 20:39 | | | | | BEDTIME, First dose on Sat | | PDT | | | | | 11/22/17 at 1999, Until | | | | | | | Discontinued | | | | | | + +-------+ +--------+---+---+ +-------+ +--------+---+---+ | Given | | 150 mg | | | | | 8 20:04 | | | | | | PDT | | | | +-------+ +--------+---+---+ | Given | | 150 mg | | | | | 8 20:10 | | | | | | PDT | | | | +-------+ +--------+---+---+ +---+---+ | | | +---+---+ + +-------+ +--------+---+---+ | traZODone (DESYREL) tablet 200 | Given | 11/27/2017 | 200 mg | | | | mg 200 mg, feeding tube, AT | | 20:18 | | | | | BEDTIME, First dose on Sat11/27/17 | | PDT | | | | | at 2000, Until Discontinued | | | | | | + +-------+ +--------+---+---+ +---+---+ | | | +---+---+ + +-------+ +-------+---+---+ | traZODone (DESYREL) tablet 50 | Given | | 50 mg | | | | mg 50 mg, feeding tube, AT | | 8 21:53 | | | | | BEDTIME, First dose on Sun | | PDT | | | | | 11/10/17 at 2200, Until | | | | | | | Discontinued | | | | | | + +-------+ +-------+---+---+ +-------+ +-------+---+---+ | Given | | 50 mg | | | | | 8 21:36 | | | | | | PDT | | | | +-------+ +-------+---+---+ | Given | | 50 mg | | | | | 8 20:14 | | | | | | PDT | | | | +-------+ +-------+---+---+ +---+---+ | | | +---+---+ + +---------+ + +---+---+ | valproate (DEPACON) IV 1,000 mg | New Bag | | 1,000 mg | | | | 1,000 mg, intravenous, ONCE, 1 | | 8 04:31 | | | | | dose, Sho 10/10/17 at 0415 | | PDT | | | | + +---------+ + +---+---+ +---+---+ | | | +---+---+ + +-------+ +--------+---+---+ | valproate (DEPAKENE) liquid 125 | Given | 12/05/2017 | 125 mg | | | | mg 125 mg, feeding tube, TWICE | | 08:25 | | | | | DAILY, First dose on Sat12/03/17 | | PDT | | | | | at 1415, Until Discontinued | | | | | | + +-------+ +--------+---+---+ +-------+ +--------+---+---+ | Given | 12/05/2017 | 125 mg | | | | | 22:25 | | | | | | PDT | | | | +-------+ +--------+---+---+ | Given | | 125 mg | | | | | 8 08:12 | | | | | | PDT | | | | +-------+ +--------+---+---+ +---+---+ | | | +---+---+ + +-------+ +--------+---+---+ | valproate (DEPAKENE) liquid 250 | Given | | 250 mg | | | | mg 250 mg, feeding tube, TWICE | | 8 20:47 | | | | | DAILY, First dose on Sat10/08/17 | | PDT | | | | | at 2100, Until Discontinued | | | | | | + +-------+ +--------+---+---+ +-------+ +--------+---+---+ | Given | | 250 mg | | | | | 8 08:11 | | | | | | PDT | | | | +-------+ +--------+---+---+ | Given | | 250 mg | | | | | 8 21:17 | | | | | | PDT | | | | +-------+ +--------+---+---+ +---+---+ | | | +---+---+ + +---------+ + +---+---+ | vancomycin (VANCOCIN) IV 1,000 | New Bag | | 1,000 mg | | | | mg 1,000 mg, intravenous, EVERY | | 8 03:25 | | | | | 12 HOURS, First dose on Sat | | PDT | | | | | 10/11/17 at 0300, Until | | | | | | | Discontinued | | | | | | + +---------+ + +---+---+ +---------+ + +---+---+ | New Bag | | 1,000 mg | | | | | 8 15:00 | | | | | | PDT | | | | +---------+ + +---+---+ | New Bag | | 1,000 mg | | | | | 8 03:22 | | | | | | PDT | | | | +---------+ + +---+---+ +---+---+ | | | +---+---+ + +---------+ + +---+---+ | vancomycin (VANCOCIN) IV 1,250 | New Bag | 09/04/2017 | 1,250 mg | | | | mg 1,250 mg (rounded from | | 13:28 | | | | | 1,147.5 mg = 15 mg/kg | | PDT | | | | | 76.5 kg Dosing weight), | | | | | | | intravenous, EVERY 12 HOURS, 14 | | | | | | | doses, First dose on Sat09/04/17 | | | | | | | at 1330, Last dose on Sat09/11/17 | | | | | | | at 0130 | | | | | | + +---------+ + +---+---+ +---------+ + +---+---+ | New Bag | | 1,250 mg | | | | | 8 01:30 | | | | | | PDT | | | | +---------+ + +---+---+ | New Bag | | 1,250 mg | | | | | 8 13:37 | | | | | | PDT | | | | +---------+ + +---+---+ +---+---+ | | | +---+---+ + +---------+ + +---+---+ | vancomycin (VANCOCIN) IV 1,250 | New Bag | | 1,250 mg | | | | mg 1,250 mg, intravenous, EVERY | | 8 01:33 | | | | | 12 HOURS, 11 doses, First dose on | | PDT | | | | | 09/06/17 at 0200, Last dose | | | | | | | on 09/11/17 at 0200 | | | | | | + +---------+ + +---+---+ +---+---+ | | | +---+---+ + +---------+ + +---+---+ | vancomycin (VANCOCIN) IV 1,250 | New Bag | | 1,250 mg | | | | mg 1,250 mg, intravenous, ONCE, | | 8 15:18 | | | | | 1 dose, [facility] 10/10/17 at 1400 | | PDT | | | | + +---------+ + +---+---+ +---+---+ | | | +---+---+ + +---------+ + +---+---+ | vancomycin (VANCOCIN) IV 1,250 | New Bag | | 1,250 mg | | | | mg 1,250 mg, intravenous, EVERY | | 8 12:00 | | | | | 12 HOURS, First dose on Sat | | PDT | | | | | 10/12/17 at 1200, Until | | | | | | | Discontinued | | | | | | + +---------+ + +---+---+ +---+---+ | | | +---+---+ in this encounter
--- OUTSIDE RECORDS SUMMARY | ~2017-12-10 | XMS | Encounter Summary ---
Demographics + + + | Address | [address] | | | [place] [address] | + + + | Home Phone | | + + + | Preferred Language | Unknown | + + + | Marital Status | Single | + + + | Latter-Day Affiliation | PEN | + + + | Race | or | + + + | Ethnic Group | Not or | + + + Author + + + | Author | [facility] | + + + | Organization | [facility] | + + + | Address | Unknown | + + + | Phone | Unavailable | + + + Support + + +---------+ + | Name | Relationship | Address | Phone | + + +---------+ + | Kaylie Baig | ECON | Unknown | | + + +---------+ + Care Team Providers + +------+ + | Care Power Ballast Machine Operator Name | Role | Phone | + +------+ + | No Pcp Per Patient | PCP | Unavailable | + +------+ + Encounter Details +--------+ + + + + | Date | Type | Department | Care Team | Description | +--------+ + + + + | 12/06/ | Pharmacy | Outpatient [facility] | | | | 2017 | Visit | [facility] | | | | | | [address] | | | | | | [place] | | | | | | [place], [place] | | | | | | [address] | | | +--------+ + + + [...]
--- OUTSIDE RECORDS SUMMARY | ~2017-12-10 | XMS | Encounter Summary ---
Demographics + + + | Address | [address] | | | [place] [address] | + + + | Home Phone | | + + + | Preferred Language | Unknown | + + + | Marital Status | Single | + + + | Taoism Affiliation | PEN | + + + | Race | or | + + + | Ethnic Group | Not or | + + + Author + + + | Author | [facility] | + + + | Organization | [facility] | + + + | Address | Unknown | + + + | Phone | Unavailable | + + + Support + + +---------+ + | Name | Relationship | Address | Phone | + + +---------+ + | Kaylie Baig | ECON | Unknown | | + + +---------+ + Care Team Providers + +------+ + | Care Asphalt Tamper Name | Role | Phone | + +------+ + | No Pcp Per Patient | PCP | Unavailable | + +------+ + Encounter Details +--------+ + + + + | Date | Type | Department | Care Team | Description | +--------+ + + + + | 10/12/ | Procedure | 6A Intra [facility] | | | | 2018 | Pass | [facility] | | | | | | Admitting Desk | | | | | | Located on the 9th | | | | | | floor [address] [facility] | | | | | | [facility] | | | | | | [place], [place] | | | | | | [phone] | | | +--------+ + + + [...]
--- OUTSIDE RECORDS SUMMARY | ~2017-12-10 | XMS | Encounter Summary ---
Demographics + + + | Address | [address] | | | [place] [address] | + + + | Home Phone | | + + + | Preferred Language | Unknown | + + + | Marital Status | Single | + + + | Orthodoxy Affiliation | PEN | + + + | Race | or | + + + | Ethnic Group | Not or | + + + Author + + + | Author | [facility] | + + + | Organization | [facility] | + + + | Address | Unknown | + + + | Phone | Unavailable | + + + Support + + +---------+ + | Name | Relationship | Address | Phone | + + +---------+ + | Kaylie Baig | ECON | Unknown | | + + +---------+ + Care Team Providers + +------+ + | Care Felt Machine Mechanic Name | Role | Phone | + [...] Pharmacy | | | | | | [address] | | | | | | [place] | | | | | | [place], [place] | | | | | | [phone] | | | +--------+ + + + [...]
--- OUTSIDE RECORDS SUMMARY | ~2017-12-10 | XMS | Encounter Summary ---
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 08/31/17intubated without history. Physical exam reveals L si ded weakness arm more than leg. CTH revealed prior large crani with synthetic cranioplasty a nd significant encephalomalacia with extraaxial collection with layering acute blood product s. CT spine shows multiple fractures with most concerning fracture at C7 lamina with canal i ntrusion. Patient being managed in C collar and [employer] REPA[employer]. -Developed drainage from previous crani site on 09/23 and concern for possible neuro exam ch sonny. Repeat imaging was stable. Wound sutured at bedside, but now with recurrent wound disc harge. - proceed to OR today for revision - AEDs per primary team or Neurology Sami Maldonado MD Neurosurgery, PGY-2 On-call resident pager [phone] 7:33 AM 10/10/2017 Dallin Bourgeois MD - [...] agent? No Dallin Bourgeois MD Neurosurgery PGY1 [id number] Venita Pruitt PA-C - 10/09/2017 12:57 PM PDTFormatting of this note may be different from the original. Trauma Acute Care - Progress Note Name: ARTEMIO TEMPLE HPI: Artemio Temple is a67 y.o. male with active [...] - patient unable to come out of [employer] REPAIR for now - Will likely need for [...] by patient, but wound remains cl zeferino/dry/intact. [place] removed 09/17. #Left hemothorax Chest tube placed [...] previous cranioplasty site. Venita Pruitt PA-C [place] [phone] [facility] [address] [place] [address] Associated attestation - Chaz Munoz MD - 10/09/2017 3:04 PM PDTI saw and examined th e patient today with Venita Pruitt PA-C, and agree with the assessement and plan as outlined in her note. Plan takeback with NSG, we will place Gabriel-oconnor feeding tube at that time. Chaz Munoz MD, FACS Online Advertising Analyst, Trauma, Critical Care and Acute Care Surgery Sherine Sarmiento, [facility] - 10/08/2017 6:21 AM PDTFormatting of this note may be dif ferent from the original. Trauma Acute Care - Progress Note Name: ARTEMIO TEMPLE HPI: Artemio eTmple is a67 y.o. male with active [...] - patient unable to come out of [employer] REPAIR for now - Will likely need for [...] [place] [phone] [facility] [place] [address] [phone] Associated attestation - Chaz Munoz MD - 10/08/2017 12:16 PM PDTI saw and examined th e patient today with KESHAWN Martin, and agree with the assessement and plan a s outlined in her note. No acute events. Seems to be slowly improving from MS. Appreciate ps ychiatry recs. Chaz Munoz MD, FACS Online Advertising Analyst, Trauma, Critical Care and Acute Care Surgery Sherine Sarmiento AGACNP - 10/07/2017 6:43 AM PDTFormatting of this note may be dif ferent from the original. Trauma Acute Care - Progress Note Name: ARTEMIO TEMPLE HPI: Artemio Temple is a67 y.o. male with active [...] - patient unable to come out fo [employer] REPAIR for now - Will likely need for [...] [place] [phone] [facility] [place] [address] [phone] Associated attestation - Chaz Munoz MD - 10/07/2017 11:15 AM PDTI saw and examined th e patient today with KESHAWN Martin, and agree with the assessement and plan a s outlined in her note. Will consider changing to bolus TF. Plan Gabriel-oconnor tube next week. Chaz Munoz MD, FACS Online Advertising Analyst, Trauma, Critical Care and Acute Care Surgery [...] attempts without restraints at this time. Venita Pruitt PA-C - 10/07/19 18 8:42 AM PDTFormatting of this note may be different from the original. Trauma Acute Care - Progress Note Name: ARTEMIO TEMPLE HPI: Artemio Temple is a67 y.o. male with active [...] p atient unable to come out fo [employer] REPAIR for now Resolved or chronic issues/Plan: #Previous [...] issues, including restraints. Venita Pruitt PA-[place] [phone] [facility] [place] [address] [phone] Associated attestation - Eris Cunningham MD - 10/17/2017 10:13 AM PDTI was present and rou nded with the Advanced Practice Provider today . I interviewed and examined the patient. I reviewed the history, as documented today. I agree with the ASHLEY assessment and plan. TBI has remained stable. On lovenox. Will continue haldol per psych.. ERIS CUNNINGHAM MD [facility] [address] [place] [address] [place] [address] Venita Pruitt PA-C - 10/05/2017 8:38 AM PDTFormatting of this note may be different from the original. Trauma Acute Care - Progress Note Name: ARTEMIO TEMPLE HPI: Artemio Temple is a67 y.o. male with active [...] p atient unable to come out fo [employer] REPAIR for now Resolved or chronic issues/Plan: #Previous [...] by patient, but wound remains duke n/dry/intact. [place] removed 09/17. #Left hemothorax Chest tube placed [...] issues, including restraints. Venita Pruitt PA-C [place] [phone] [facility] [place] [address] [place] [facility] [place] [address] [phone] Associated attestation - Shlomo Rosenthal MD - 10/06/2017 7:28 AM PDTFormatting of this note m ay be different from the original. I saw and examined Artemio Temple ([id number]) with the TRAUMA team on 10/05/2017. I agree with the assessment and plan as outlined in this note and participated in the planning of care. I have personally reviewed all pertinent labarotory findings, radiographs, and physiologic p arameters. I personally performed pertinent parts of the physical examination and personally formulated the plan with the TRAUMA team. Artemio Temple remains hospitalized for the the following [...] and incen tive spirometry for pulmonary toliet. respiratory manager for disposition planning and placement. Shlomo Rosenthal MD Credit Control Manager Division of Trauma and Critical Care Venita Pruitt PA-C - 10/04/2017 6:36 AM PDTFormatting of this note may be different from the original. Trauma Acute Care - Progress Note Name: ARTEMIO TEMPLE HPI: Artemio Temple is a67 y.o. male with active [...] (baseline from previous TBI ) Neck: in [place] collar Respiratory: CTA b.l CV: RRR GI: [...] p atient unable to come out fo [employer] REPAIR for now Resolved or chronic issues/Plan: #Previous [...] by patient, but wound remains duke n/dry/intact. [place] removed 09/17. #Left hemothorax Chest tube placed [...] issues, including restraints. Venita Pruitt PA-[place] [phone] [facility] [address] [place] [facility] [phone] Associated attestation - Fidelina Shields MD - 10/04/2017 10:27 PM PDTAttending: I saw and examined Artemio Temple with Venita rPuitt PA-C on morning rounds 10/04/17 and ag [...] and only enteral access. Fidelina Shields MD Online Advertising Analyst Division of Trauma, Critical Care and Acute Care Surgery Office: [phone] Pager: [phone] Leonor Torres ACNP - 10/03/2017 3:13 PM PDTFormatting of this note may be different from t frankie original. Trauma Acute Care - Progress Note Name: ARTEMIO TEMPLE HPI: Artemio Temple is a67 y.o. male with active [...] (baseline from previous TBI ) Neck: in [place] collar Respiratory: CTA bilaterally, no distress CV: [...] p atient unable to come out fo [employer] REPAIR for now Resolved or chronic issues/Plan: Previous [...] by patient, but wound remains duke n/dry/intact. [place] removed 09/17. #Left hemothorax Chest tube placed [...] 10:28 PM PDTAttending: I saw and examined Artemio Temple ([id number]) with CB Hair on morning rounds 10/03 and agree with the assessment and plan as outlined in this note and participated in the planning of care. Mental status is slightly better, remains sedated but he is interactive and at least somewh at oriented. Enteral nutrition advancing and, as approaches goal, will turn TPN off. Place ment remains a significant issue. Fidelina Shields MD Online Advertising Analyst Division of Trauma, Critical Care and Acute Care Surgery Office: [phone] Pager: [phone] Josiah Banegas PA-C - 10/03/2017 12:58 PM PDTBrief [...] the C-collar when in bed then the [employer] REPAIR when out of bed until 12/01/17. JOSIAH BANEGAS PA-C [facility] [address] [place] [address] Associated attestation - Magdiel Stock MD - 10/04/2017 6:02 PM PDTI performed a history a nd physical examination of the patient and discussed the management with the advanced practi ce provider, Josiah Banegas PA-C. I reviewed the advanced practice provider's note and agree w ith the plan of care as documented. Continue cervical collar and SU[employer] REPAIR for 3 months to ensure fracture healing and prevent development of post-fracture cervical kyphosis. Magdiel Stock MD Online Advertising Analyst Department of Neurological Surgery [facility] [place] Torsten Sherine E, AGACN - 10/02/2017 12:54 PM PDTFormatting of this note may be dif ferent from the original. Trauma Acute Care - Progress Note Name: ARTEMIO TEMPLE HPI: Artemio Temple is a67 y.o. male with active [...] 3 results) - Refreshable Recent Labs 09/30/1744210/01/1752410/02/17 0512 10/02/17 0604 10/02/17 1230 NA 140 [...] (baseline from previous TBI ) Neck: in [place] collar Respiratory: CTA bilaterally, lungs symmetrical, equal chest wall rise, no retractions CV: RRR GI: non tender, soft, active BS, last BM 09/30 : Patient voiding without difficulty Extremities: no peripheral edema, wiggles toes and toes pink and well perfused Musculoskeletal: 5/5 ethernet network architect strength on right, 3/5 ethernet network architect strength on left FEN: on TPN, transitioning [...] AMS & delirium - numerous evaluations by PLANT CHANGER with trials of PO - now s/p [...] . - C-collar at all times, use [employer] REPAIR when OOB - Follow-up with Neurosurgery on 10/21 with repeat X-rays #Blunt abdominal trauma #Splenic laceration S/p laparotomies x2. Fascia closed 09/02 Wound vac removed by patient, but wound remains duke n/dry/intact. [place] removed 09/17. #Left hemothorax Chest tube placed [...] will decrease [place]g [phone] Associated attestation - Fidelina Shields MD - 10/02/2017 4:40 PM PDTAttending: I saw and examined Arteimo Temple ([id number]) with KESHAWN Alexander on mornin g rounds [...] drawn back to midline position. May need assisted enteral access , but is ~4 weeks s/p damage control laparotomy and risk is higher now than it will be in 7- 14 days and if swallow is not improving then will place prior to DC Fidelina Shields MD Online Advertising Analyst Division of Trauma, Critical Care and Acute Care Surgery Office: [phone] Pager: [phone] Sherine Sarmiento AGACNP - 10/01/2017 7:27 AM PDTFormatting of this note may be dif ferent from the original. Trauma Acute Care - Progress Note Name: ARTEMIO TEMPLE HPI: Artemio Temple is a67 y.o. male with active [...] (baseline from previous TBI ) Neck: in [place] collar Respiratory: CTA bilaterally, lungs symmetrical, equal chest wall rise, no retractions CV: RRR GI: non tender, soft, active BS, last BM 09/30 : Patient voiding without difficulty Extremities: no peripheral edema, wiggles toes and toes pink and well perfused Musculoskeletal: 5/5 ethernet network architect strength on right, 3/5 ethernet network architect strength on left FEN: on TPN Heme/ID: [...] AMS & delirium - numerous evaluations by PLANT CHANGER with trials of PO - now s/p modified barium swallow x2 which indicates aspiration - continue NPO - PLANT CHANGER reports that patient working on tongue strength [...] . - C-collar at all times, use [employer] REPAIR when OOB - Follow-up with Neurosurgery on 10/21 with repeat X-rays #Blunt abdominal trauma #Splenic laceration S/p laparotomies x2. Fascia closed 09/02 Wound vac removed by patient, but wound remains duke n/dry/intact. [place] removed 09/17. #Left hemothorax Chest tube placed [...] trauma team [place] [phone] Associated attestation - Fidelina Shields MD - 10/02/2017 4:40 PM PDTAttending: I saw and examined Artemio Temple ([id number]) with KESHAWN Alexander on mornin g rounds 10/01/17 and agree with the assessment and plan as outlined in this note and partic ipated in the planning of care. Will trial DHT placement today, CT head unchanged. Suspect somnolence is medication side ef fect and, if persistent, may need to wean antipsychotic doses. Fidelina Shields MD Online Advertising Analyst Division of Trauma, Critical Care and Acute Care Surgery Office: [phone] Pager: [phone] Christian Kelley PA-C - 09/30/2017 12:21 PM PDTFormatting of this note may be different from the original. Trauma Acute Care - Progress Note Name: ARTEMIO TEMPLE HPI: Artemio Temple is a67 y.o. male with active [...] Fixed and dilated on left Neck: in [place] collar Respiratory: CTA bilaterally, lungs symmetrical, equal chest wall rise, no retractions CV: RRR GI: non tender, soft, active BS, last BM 09/30 : Patient voiding without difficulty Extremities: no peripheral edema, wiggles toes and toes pink and well perfused Musculoskeletal: 5/5 ethernet network architect strength on right, 3/5 ethernet network architect strength on left FEN: on TPN Heme/ID: [...] AMS & delirium - numerous evaluations by PLANT CHANGER with trials of PO - now s/p modified barium swallow x2 which indicates aspiration - continue NPO - PLANT CHANGER reports that patient working on tongue strength [...] . - C-collar at all times, use [employer] REPAIR when OOB - Follow-up with Neurosurgery on [...] 3:08 PM PDTAttending: I saw and examined Artemio Temple ([id number]) with Christian Kelley PA-C on morning rounds 09/30 and agree with the assessment and plan as outlined in this note and participated in the planning of care. Mentally slower this morning, but non-focal. Received haldol overnight for sleep. Repeat head CT was unchanged so suspect etiology of slowed responsiveness is the antipsychotic dose . PLANT CHANGER believes that, once collar off, may be able to take PO more effectively and thus will hold off on surgical feeding access. TPN is a temporary solution and if patient remains kaye nable will trial DHT tomorrow. Working with psychiatry for medication recommendations. Fidelina Shields MD Online Advertising Analyst Division of Trauma, Critical Care and Acute Care Surgery Office: [phone] Pager: [phone] Josiah Banegas PA-C - 09/30/2017 8:23 AM PDTBrief Neurosurgery Wound Check: Wound is dry, without erythema, not fluctuant. No acute swelling. Nylon in place. Will plan to follow peripherally for wound checks and remove nylons on 10/09. JOSIAH BANEGAS PA-C [facility] [address] [place] [address] Christian Kelley PA-C - 09/29/2017 7:15 AM PDTFormatting of this note may be different from the original. Trauma Acute Care - Progress Note Name: ARTEMIO TEMPLE HPI: Artemio Temple is a67 y.o. male with active [...] and EOMs intact to exam Neck: in [place] collar Respiratory: CTA bilaterally, lungs symmetrical, equal [...] AMS & delirium - numerous evaluations by PLANT CHANGER with trials of PO - now s/p [...] . - C-collar at all times, use [employer] REPAIR when OOB - Follow-up with Neurosurgery on [...] [facility], continue haldol, consider open Agbriel-oconnor tube this we ek CHRISTIAN KELLEY PA-C Associated attestation - Fidelina Shields MD - 09/30/2017 2:32 PM PDTAttending: I saw and examined Artemio Temple ([id number]) with Christian Kelley PA-C on morning rounds 09/29 and agree with the assessment and plan as outlined in this note and participated in the planning of care. Late entry for 09/29/17. Persistent alterations in conscious and dysphagia. Hopefully with ongoing speech therapy a nd when clear to take c-collar off, will improve ability to take PO. While TPN is not an opt imal technician terminal and repeater strategy, would prefer not to place surgical feeding tube if possible given r elatively recent damage control laparotomy and high risk of Mr. Temple pulling it out. Have tried DHT several times and it seems to worsen delirium and he pulls it out frequently. Tit ration of haldol in conjunction with psychiatry. Fidelina Shields MD Online Advertising Analyst Division of Trauma, Critical Care and Acute Care Surgery Office: [phone] Pager: [phone] Christian Kelley PA-C - 09/28/2017 1:01 PM PDTFormatting of this note may be different from the original. Trauma Acute Care - Progress Note Name: ARTEMIO TEMPLE HPI: Artemio Temple is a67 y.o. male with active [...] he said, who, ariel? And then the RN HOME CARE helped him make a call to her. [...] and EOMs intact to exam Neck: in [place] collar Respiratory: CTA bilaterally, lungs symmetrical, equal [...] very agitated today. - EKG today with Milton QTc calculated to be 428 - optimize [...] AMS & delirium - numerous evaluations by PLANT CHANGER with trials of PO - now s/p [...] . - C-collar at all times, use [employer]ING REPAIR when OOB - Follow-up with Neurosurgery on 10/21 with repeat X-rays #Blunt abdominal trauma #Splenic laceration S/p laparotomies x2. Fascia closed 09/02 Wound vac removed by patient, but wound remains duke n/dry/intact. [place] removed 09/17. #Left hemothorax Chest tube placed [...] to communicate more toyoselin Munoz MD, FACS Online Advertising Analyst, Trauma, Critical Care and Acute Care Surgery Chaz Munoz MD - 09/28/2017 10:13 AM PDTTrauma Staff Seen and examined this AM with team. I have concerns abotu behaviour, as he is consistently threatening RN and ancillary staff, even attempting swings. Behavior seems worse at night. I would favor increasing night time Haldol dose, and following EKGs. Chaz Munoz MD, FACS Online Advertising Analyst, Trauma, Critical Care and Acute Care Surgery [...] No surrounding erythema, swelling or drainage. ASSESSMENT: Artemio Temple is a 67 y.o. male history of prior TBI, OSH R DHC -now admitted for ped vs a uto 08/31/17. Exam improving, particularly improved L sided weakness. No evidence of leakage from scalp wound. PLAN: We will continue to follow wound. Nylon to be removed on 10/09. Dallin Bourgeois MD Neurosurgery PGY1 | Pager #[phone] Christian Kelley PA-C - 09/27/2017 7:31 AM PDTFormatting of this note may be different from the original. Trauma Acute Care - Progress Note Name: ARTEMIO TEMPLE HPI: Artemio Temple is a67 y.o. male with active [...] able to have a linear conversation briefly PLANT CHANGER requesting repeat barium swallow Current meds: I [...] incision healing , suture c/d/I Neck: in SUPERVISOR LEAF SPRING REPAIR Respiratory: unlabored on room air, lungs symmetrical, [...] AMS & delirium - numerous evaluations by PLANT CHANGER with trials of PO - now s/p [...] . - C-collar at all times, use SUPERVIS[employer] LEAF SPRING REPAIR when OOB - Follow-up with Neurosurgery on 10/21 with repeat X-rays #Blunt abdominal trauma #Splenic laceration S/p laparotomies x2. Fascia closed 09/02 Wound vac removed by patient, but wound remains duke n/dry/intact. [place] removed 09/17. #Left hemothorax Chest tube placed [...] ous head CT/MRI imaging per NSG request DIANNA DYERC Associated attestation - Eris Cunningham MD - 09/30/2017 9:17 AM PDTI [...] major issue. Will cotinue TPN for now. ERIS CUNNINGHAM MD [facility] [address] [place] [address] Christian Kelley PA-C - 09/26/2017 6:48 AM PDTFormatting of this note may be different from the original. Trauma Acute Care - Progress Note Name: ARTEMIO TEMPLE HPI: Artemio Temple is a67 y.o. male with active [...] posterior scalp crani incision c/d/I Neck: in [place] collar Respiratory: unlabored on room air CV: [...] AMS & delirium - numerous evaluations by PLANT CHANGER with trials of PO - now s/p [...] . - C-collar at all times, use SUPERVISOR LEAF SPRING REPAIR when OOB - Follow-up with Neurosurgery on [...] started 09/21 Disposition: Continue [facility] CAITIE DYER-C Associated attestation - Eris Cunningham MD - 09/26/2017 2:34 PM PDTI was present and rou nded with the Advanced Practice Provider today. I interviewed and examined the patient. I reviewed the history, as documented today. I agree with the ASHLEY assessment and plan. No nop management per neursurgery. Continue olanzapine. Psych recommended no change in current regimen. Cranial dehiscence repaired at bedside. Continue NPO and TPN. ERIS CUNNINGHAM MD [facility] [address] [place] [address] Christian Kelley PA-C - 09/25/2017 7:49 AM PDTFormatting of this note may be different from the original. Trauma Acute Care - Progress Note Name: ARTEMIO TEMPLE HPI: Artemio Temple is a67 y.o. male with active [...] HEENT: EOMs intact to exam Neck: in SUPERVISOR LEAF SPRING REPAIR brace Respiratory: unlabored on room air CV: [...] AMS & delirium - numerous evaluations by PLANT CHANGER with trials of PO - now s/p [...] . - C-collar at all times, use SUPERVISOR LEAF SPRING REPAIR when OOB - Follow-up with Neurosurgery on 10/21 with repeat X-rays #Blunt abdominal trauma #Splenic laceration S/p laparotomies x2. Fascia closed 09/02 Wound vac removed by patient, but wound remains duke n/dry/intact. [place] removed 09/17. #Left hemothorax Chest tube placed [...] management CHRISTIAN KELLEY PA-C Associated attestation - Eris Cunningham MD - 09/26/2017 2:31 PM PDTI was present and rou nded with the Advanced Practice Provider today. I interviewed and examined the patient. I reviewed the history, as documented today. I agree with the ASHLEY assessment and plan. No noperative management per neurosurgery for right synthetic cranioplasy. Okay to resume loven ox tonight. Continuing to workup encephalopathy. LFTS wnl. Continue TPN. ERIS CUNNINGHAM MD [facility] [address] [place] [address] Christian Kelley PA-C - 09/24/2017 11:07 AM PDTFormatting of this note may be different from the original. Trauma Acute Care - Progress Note Name: ARTEMIO TEMPLE HPI: Artemio Temple is a67 y.o. male with active [...] with agitation Having difficulty swallowing again - PLANT CHANGER to re-eval and obtain barium swallow Current [...] HEENT: EOMs intact to exam Neck: in SUPERVISOR LEAF SPRING REPAIR brace Respiratory: CTA bilaterally, lungs symmetrical, equal chest wall rise, no retractions CV: RRR GI: non distended, last BM 09/23 : good urine output Extremities: SCD's in place, no peripheral edema, wiggles toes and toes pink and well perfu sed Musculoskeletal: 5/5 strength in bilateral ethernet network architect (but with slightly weaker on left) , [...] PRN seroquel dose QHS for insomnia/restlessness at [facility] - Haldol 5mg q12hr prn for [...] likely 2/2 AMS & delirium - Failed PLANT CHANGER eval 09/19 & 09/20, made NPO & dobhoff reinserted 09/21 but pulled overnight - Per PLANT CHANGER on 09/21, ok for therapeutic pureed with [...] . - C-collar at all times, use SUPERVISOR LEAF SPRING REPAIR when OOB - Follow-up with Neurosurgery on [...] pending CHRISTIAN KELLEY PA-C Associated attestation - Eris Cunningham MD - 09/26/2017 2:32 PM PDTI was present and rou nded with the Advanced Practice Provider today. I interviewed and examined the patient. I reviewed the history, as documented today. I agree with the ASHLEY assessment and plan. No i ntervention per neurosurgery for cranial dehiscense. Continue agitation treatment. No obviou s source for encephalopathy. Start abx for dehiscence. ERIS CUNNINGHAM MD [facility] [address] [place] [address] Ginette Campos PA-C - 09/24/2017 9:31 AM [...] 4 extremities Unable to assess drift. Motor: Temperature Regulator Pyrometer Bicep Tricep Delt R 5 5 5 5 L 4 4 4- 4- RLE moving spontaneously, unable to complete motor exam with LLE due to patient somnolence. Incision: Cranial: Clean, some serosanguinous drainage surrounding incision but none readil y expressed with palpation. No purulent drainage. Stable erythema. Impression: Artemio Temple is a 67 y.o. male history [...] further questions or concerns. Ginette Campos PA-C [facility] [address] [place] [address] Pg [phone] Sherine Sarmiento, [facility] - 09/23/2017 6:32 AM PDTFormatting of this note may be dif ferent from the original. Trauma Acute Care - Progress Note Name: ARTEMIO TEMPLE HPI: Artemio Temple is a67 y.o. male with active [...] hiscence, draining minimal serosang fluid Neck: in SUPERVISOR LEAF SPRING REPAIR brace Respiratory: unlabored on room air CV: [...] PRN seroquel dose QHS for insomnia/restlessness at [facility] - Repeat ECG 09/22 with QTc [...] likely 2/2 AMS & delirium - Failed PLANT CHANGER eval 09/19 & 09/20, made NPO & dobhoff reinserted 09/21 but pulled overnight - Per PLANT CHANGER on 09/21, ok for therapeutic pureed with [...] . - C-collar at all times, use SUPERVISOR LEAF SPRING REPAIR when OOB - Follow-up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 PRODUCT - RED CELLS LEUKOREDUCED (11/06/2017 8:03 AM) + + + + | Component | Value | Ref Range | + + + + | PRODUCT DESCRIPTION | -1 RED BLOOD CELL ADENINE-SALINE ADDED | | | | LEUKOCYTE | | + + + + | PRODUCT UNIT # | [id number] | | + + + + | UNIT ABO | O | | + + + + | UNIT RH | POS | | + + + + | STATUS OF UNIT | Returned to Blood Bank | | + + + + | EXPIRATION DATE | [id number] | | + + + + | BLOOD TYPE BARCODE | 5100 | | + + + + | BLOOD PRODUCT CODE | [id number] | | + + + + + + + | Specimen | Performing Laboratory | + + + | | [facility], TRANSFUSION MEDICINE [address] [place] [address] | | | [place] [address] | + + + CBC (HEMOGRAM) ONLY [...] | + + + | Blood | [facility], CORE [address] | | | [place] [address] | + + + + + | [...] | | ------ CBC (HEMOGRAM) | | ONLY[[id number]] Abnormal Final | | result Please view [...] | + + + | Blood | [facility], CORE [address] [facility] | | | [place] [address] | + + + + + | [...] | >60 | >60 mL/min | | [place] | | | + + + + | EGFR NON | >60 | >60 mL/min | | [place] | | | + + + + [...] | + + + | Blood | [facility], [facility] [address] | | | [place] [address] | + + + + + | [...] Attending | | Surgeon: Magdiel Stock MD Rn Telephone Triage(s): Alana Aiken MD | | Preoperative Diagnoses: 1. [...] head was placed in a horseshoe head golf coach with his C-collar still | | attached [...] the incision down to the cranium. Once [place] | | skull was reached circumferentially around the prior incision, a #1 Winona was used | | to subperiosteally dissect [...] note for this encounter.Sonal Nunez, | | [facility] [id number] [place], [place] | | [id number] Orina, MDJB/TAHIRLDD: 11/05/2017 20:38:01DT: 11/06/2017 | | 00:27:33Job #: [id number] | |HATTIE/DUC | | | | | | /[id number] | + + CT HEAD WO CONTRAST (11/05/2017 7:55 PM) + + + | Specimen | Performing Laboratory | + + + | | [facility] VOICE RECOGNITION 2 | + + [...] | Daniel Armijo MD Dictation initiated: Daniel Armijo MD 11/05/2017 8:17 | | PM | + + + + | Procedure Note | + + | 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, Heal[employer] Res In Interface - 11/05/2017 8:20 PM [...] + | Narrative | + + | Alana Aiken MD 11/05/2017 7:36 PM Neurosurgery Brief Operative Note | | 11/05/2017 7:31 PM Patient: Artemio Temple Consent: Prior to the beginning of [...] | nursing staff. Surgeon: Magdiel Stock MD Rn Telephone Triage: Alana Aiken MD | | Pre-op Diagnosis: Right [...] while drain in - Routine wound care Alana | | MD Attila PGY-4 Neurological Surgery Pager [phone] | + + CAPILLARY BLOOD GLUCOSE (NO CHG), POC (11/05/2017 7:11 PM) + +---------+ + | Component | Value | Ref Range | + +---------+ + | BLOOD GLUCOSE, POC | 129 (H) | 70 - 99 mg/dL | + +---------+ + + + + | Specimen | Performing Laboratory | + + + | | [facility] [place], POINT OF [facility] TESTS [address] | | | [place] [address] | + + + CAPILLARY BLOOD GLUCOSE (NO CHG), POC (11/05/2017 1:33 PM) + +---------+ + | Component | Value | Ref Range | + +---------+ + | BLOOD GLUCOSE, POC | 103 (H) | 70 - 99 mg/dL | + +---------+ + + + + | Specimen | Performing Laboratory | + + + | | [facility]ARE TESTS [address] | | | [place] [address] | + + + VASC LAB VENOUS DUPLEX LOWER EXTREMITY BILAT COMP (11/05/2017 10:36 AM) + + + | Specimen | Performing Laboratory | + + + | | [facility] US | + + + + + [...] Note | + + | 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, payworks In Interface - 11/05/2017 11:31 AM PDT [...] | + + + | Blood | [facility], CORE [address] [facility] | | | [place] [address] | + + + + + | [...] | + + + | Blood | [facility], CORE [address] | | | [place] [address] | + + + + + | [...] | >60 | >60 mL/min | | [place] | | | + + + + | EGFR NON | >60 | >60 mL/min | | [place] | | | + + + + [...] | + + + | Blood | [facility], CORE [address] [place] [address] | | | [place], [place] [address] | + + + + + | [...] | + + + | Blood | [facility], CORE [address] | | | [place] [address] | + + + + + | [...] | | ------ CBC (HEMOGRAM) | | ONLY[[id number]] Abnormal Final | | result Please view [...] + + | PRODUCT UNIT # | [id number] | | + + + + | UNIT ABO | O | | + + + + | UNIT RH | POS | | + + + + | STATUS OF UNIT | Returned to Blood Bank | | + + + + | EXPIRATION DATE | [id number] | | + + + + | BLOOD TYPE BARCODE | 5100 | | + + + + | BLOOD PRODUCT CODE | [id number] | | + + + + + + + | Specimen | Performing Laboratory | + + + | | [facility], TRANSFUSION MEDICINE [address] [facility] | | | [place] [address] | + + + PRODUCT - RED CELLS LEUKOREDUCED (11/04/2017 8:19 PM) + + + + | Component | Value | Ref Range | + + + + | PRODUCT DESCRIPTION | -1 RED BLOOD CELL ADENINE-SALINE ADDED | | | | LEUKOCYTE | | + + + + | PRODUCT UNIT # | [id number] | | + + + + | UNIT ABO | O | | + + + + | UNIT RH | POS | | + + + + | STATUS OF UNIT | Returned to Blood Bank | | + + + + | EXPIRATION DATE | [id number] | | + + + + | BLOOD TYPE BARCODE | 5100 | | + + + + | BLOOD PRODUCT CODE | [id number] | | + + + + + + + | Specimen | Performing Laboratory | + + + | | [facility], TRANSFUSION MEDICINE [address] [facility] | | | [place] [address] | + + + CBC (HEMOGRAM) ONLY [...] | + + + | Blood | [facility], CORE [address] [facility] | | | [place] [address] | + + + + + | [...] | + + + | Blood | [facility], TRANSFUSION MEDICINE [address] [facility] | | | [place] [address] | + + + ABO & RH [...] | + + + | Blood | [facility], TRANSFUSION MEDICINE [address] [facility] | | | [place] [address] | + + + TYPE AND SCREEN [...] | ------ ABO & RH | | TYPE[[id number]] F | | inal result ANTIBODY | | SCREEN[[id number]] Fin | | al result Please view [...] | + + + | Blood | [facility], CORE [address] [place] [address] | | | [place] [address] | + + + + + | [...] | | ------ CBC (HEMOGRAM) | | ONLY[[id number]] Abnormal Final | | result Please view [...] | ECG IMPRESSION | Electronically signed by: RENO VIZCIANO | | | | 11-04-2017 14:31:31 | | + + + + + + + | Specimen | Performing Laboratory | + + + | | [facility] [address] [place] [address] | | | [place] [address] | + + + CALCIUM, IONIZED, WHOLE [...] | + + + | Blood | [facility], CORE [address] [facility] | | | [place] [address] | + + + C-REACTIVE PROTEIN (11/04/2017 5:59 AM) + +-------+ + | Component | Value | Ref Range | + +-------+ + | C-REACTIVE PROTEIN | <2.9 | <10.0 mg/L | + +-------+ + + + + | Specimen | Performing Laboratory | + + + | Blood | [facility], CORE [address] | | | [place] [address] | + + + + + | [...] | + + + | Blood | [facility] [address] [place], [place] | | | [address] | + + + TRIGLYCERIDES, PLASMA (11/04/2017 5:59 AM) + +-------+ + | Component | Value | Ref Range | + +-------+ + | TRIGLYCERIDES | 111 | <150 mg/dL | + +-------+ + + + + | Specimen | Performing Laboratory | + + + | Blood | [facility], CORE [address] [facility] | | | [place] [address] | + + + + + | [...] | + + + | Blood | [facility], CORE [address] [facility] | | | [place] [address] | + + + RENAL FUNCTION SET [...] | >60 | >60 mL/min | | [place] | | | + + + + | EGFR NON | >60 | >60 mL/min | | [place] | | | + + + + [...] | + + + | Blood | [facility] [address] [facility] | | | [place] [address] | + + + + + | [...] | + + + | Blood | [facility], CORE [address] [facility] | | | [place] [address] | + + + + + | [...] | + + + | Blood | [facility], CORE [address] [facility] | | | [place] [address] | + + + + + | [...] | >60 | >60 mL/min | | [place] | | | + + + + | EGFR NON | >60 | >60 mL/min | | [place] | | | + + + + [...] | + + + | Blood | [facility], CORE [address] [facility] | | | [place] [address] | + + + + + | [...] | + + + | Blood | [facility], CORE [address] [facility] | | | [place] [address] | + + + + + | [...] | >60 | >60 mL/min | | [place] | | | + + + + | EGFR NON | >60 | >60 mL/min | | [place] | | | + + + + [...] | + + + | Blood | [facility], CORE [address] | | | [facility] [place] [address] | + + + + + | [...] Laboratory | + + + | | [facility] [address] [place] [address] | | | [place] [address] | + + + MAGNESIUM, PLASMA (11/01/2017 4:40 AM) + +-------+ + | Component | Value | Ref Range | + +-------+ + | MAGNESIUM,PLASMA | 2.0 | 1.6 - 2.6 mg/dL | + +-------+ + + + + | Specimen | Performing Laboratory | + + + | Blood | [facility], CORE [address] [facility] | | | [place] [address] | + + + + + | [...] | >60 | >60 mL/min | | [place] | | | + + + + | EGFR NON | >60 | >60 mL/min | | [place] | | | + + + + [...] | + + + | Blood | [facility], CORE [address] [facility] | | | [place] [address] | + + + + + | [...] Laboratory | + + + | | [facility] VOICE RECOGNITION 2 | + + [...] ventricular entrapment. These results were discussed with DrSelvin | | Black of trauma on 10/31/2017 [...] Laboratory | + + + | | [facility] [address] [place] [address] | | | [place] [address] | + + + RENAL FUNCTION SET [...] | >60 | >60 mL/min | | [place] | | | + + + + | EGFR NON | >60 | >60 mL/min | | [place] | | | + + + + [...] | + + + | Blood | [facility], CORE [address] [facility] | | | [place] [address] | + + + + + | [...] | + + + | Blood | [facility], CORE [address] [facility] | | | [place] [address] | + + + + + | [...] [facility], POINT OF CARE TESTS [address] | | | [place] [address] | + + + MAGNESIUM, PLASMA (10/30/2017 5:29 AM) + +-------+ + | Component | Value | Ref Range | + +-------+ + | MAGNESIUM,PLASMA | 1.8 | 1.6 - 2.6 mg/dL | + +-------+ + + + + | Specimen | Performing Laboratory | + + + | Blood | [facility], CORE [address] [place] [address] | | | [place] [address] | + + + + + | [...] | >60 | >60 mL/min | | [place] | | | + + + + | EGFR NON | >60 | >60 mL/min | | -[place] | | | + + + + [...] | + + + | Blood | [facility], CORE [address] [facility] | | | [place] [address] | + + + + + | [...] | | muscle-wasting diseses | + + [facility] VENOUS DUPLEX LOWER EXTREMITY BILAT COMP (10/29/2017 8:56 AM) + + + | Specimen | Performing Laboratory | + + + | | [facility] | + + + + + [...] + | | SELENA GENAO, POINT OF [facility] TESTS [address] | | | [place] [address] | + + + MAGNESIUM, PLASMA (10/29/2017 6:19 AM) + +-------+ + | Component | Value | Ref Range | + +-------+ + | MAGNESIUM,PLASMA | 1.9 | 1.6 - 2.6 mg/dL | + +-------+ + + + + | Specimen | Performing Laboratory | + + + | Blood | [facility], CORE [address] [facility] | | | [facility] [place] [address] | + + + + + | [...] | >60 | >60 mL/min | | [place] | | | + + + + | EGFR NON | >60 | >60 mL/min | | -[place] | | | + + + + [...] | + + + | Blood | [facility], CORE [address] | | | [facility] [address] | + + + + + | [...] + + + | | SELENA PICKETT [place], POINT OF CARE TESTS [address] | | | [place] [address] | + + + 12 LEAD ECG [...] Laboratory | + + + | | [facility] [address] [place] [address] | | | [place] [address] | + + + CAPILLARY BLOOD GLUCOSE [...] GENAO, POINT OF CARE TESTS [address] | | | [place] [address] | + + + CAPILLARY BLOOD GLUCOSE (NO CHG), POC (10/28/2017 6:43 AM) + +---------+ + | Component | Value | Ref Range | + +---------+ + | BLOOD GLUCOSE, POC | 127 (H) | 70 - 99 mg/dL | + +---------+ + + + + | Specimen | Performing Laboratory | + + + | | SDDANIELLE PIYUSH [place], POINT OF CARE TESTS [address] | | | [place] [address] | + + + C-REACTIVE PROTEIN (10/28/2017 5:29 AM) + + + + | Component | Value | Ref Range | + + + + | C-REACTIVE PROTEIN | 17.9 (H) | <10.0 mg/L | + + + + + + + | Specimen | Performing Laboratory | + + + | Blood | [facility], CORE [address] [address] | | | [place] [address] | + + + + + | [...] | + + + | Blood | [facility] [place] [address] [place], [place] | | | [address] | + + + TRIGLYCERIDES, PLASMA (10/28/2017 5:29 AM) + +-------+ + | Component | Value | Ref Range | + +-------+ + | TRIGLYCERIDES | 117 | <150 mg/dL | + +-------+ + + + + | Specimen | Performing Laboratory | + + + | Blood | [facility], CORE [address] [facility] | | | [place] [address] | + + + + + | [...] | + + + | Blood | [facility], CORE [address] [place] [address] | | | [place] [address] | + + + LIVER SET (AST,ALT,BILI [...] | + + + | Blood | [facility], CORE [address] [place] [address] | | | [place] [address] | + + + RENAL FUNCTION SET [...] | >60 | >60 mL/min | | [place] | | | + + + + | EGFR NON | >60 | >60 mL/min | | -[place] | | | + + + + [...] | + + + | Blood | [facility] [address] | | | [place] [address] | + + + + + | [...] | + + + | Blood | [facility], CORE [address] [facility] | | | [place] [address] | + + + + + | [...] | SELENA GENAO, POINT OF CARE TESTS [address] | | | [place] [address] | + + + CAPILLARY BLOOD GLUCOSE [...] [facility], POINT OF CARE TESTS [address] | | | [place] [address] | + + + CT ABDOMEN AND PELVIS WO IV CONTRAST (10/27/2017 5:38 PM) + + + | Specimen | Performing Laboratory | + + + | | [facility] VOICE RECOGNITION 2 | + + [...] Nette Galeas, Radiant Res In Interface - 10/28/2017 9:21 [...] Laboratory | + + + | | [facility] VOICE RECOGNITION 2 | + + + + + | Narrative | + + | EXAM: CT CHEST PICC LINE CHECK HISTORY: picc done [...] Interface - 10/27/2017 6:29 PM PDT EXAM: CT CHEST | | PICC LINE CHECK HISTORY: [...] + | Narrative | + + | Kamini Herrera RN 10/27/2017 1:29 PM PICC LINE Performed by: DEISI, | | KAMINI Authorized by: CHAZ MUNOZ PICC/Midline Insertion Procedure [...] | | verifies correct patient, procedure, equipment, product support representative and site/side marked as | | required. [...] Brachial | | vein. Catheter lot number: [id number] with a length of 55 cm was [...] SELENA [facility], POINT OF CARE TESTS [address] | | | [place] [address] | + + + 12 LEAD ECG [...] Laboratory | + + + | | [facility] [address] [place] [address] | | | [place] [address] | + + + CAPILLARY BLOOD GLUCOSE (NO CHG), POC (10/27/2017 6:10 AM) + +-------+ + | Component | Value | Ref Range | + +-------+ + | BLOOD GLUCOSE, POC | 82 | 70 - 99 mg/dL | + +-------+ + + + + | Specimen | Performing Laboratory | + + + | | SELENA GENAO, POINT OF CARE TESTS [address] | | | [place] [address] | + + + MAGNESIUM, PLASMA (10/27/2017 4:30 AM) + +-------+ + | Component | Value | Ref Range | + +-------+ + | MAGNESIUM,PLASMA | 1.9 | 1.6 - 2.6 mg/dL | + +-------+ + + + + | Specimen | Performing Laboratory | + + + | Blood | [facility], CORE [address] | | | [place] [address] | + + + + + | [...] | >60 | >60 mL/min | | [place] | | | + + + + | EGFR NON | >60 | >60 mL/min | | -[place] | | | + + + + [...] | + + + | Blood | [facility], CORE [address] | | | [place] [address] | + + + + + | [...] Laboratory | + + + | | [facility], POINT OF CARE TESTS [address] | | | [place] [address] | + + + CAPILLARY BLOOD GLUCOSE [...] GENAO POINT OF CARE TESTS [address] | | | [place] [address] | + + + CAPILLARY BLOOD GLUCOSE (NO CHG), POC (10/26/2017 5:57 AM) + +---------+ + | Component | Value | Ref Range | + +---------+ + | BLOOD GLUCOSE, POC | 102 (H) | 70 - 99 mg/dL | + +---------+ + + + + | Specimen | Performing Laboratory | + + + | | [facility] [place], POINT OF CARE TESTS [address] | | | [place] [address] | + + + MAGNESIUM, PLASMA (10/26/2017 5:13 AM) + +-------+ + | Component | Value | Ref Range | + +-------+ + | MAGNESIUM,PLASMA | 1.6 | 1.6 - 2.6 mg/dL | + +-------+ + + + + | Specimen | Performing Laboratory | + + + | Blood | [facility], CORE [address] [place] [address] | | | [place] [address] | + + + + + | [...] | >60 | >60 mL/min | | [place] | | | + + + + | EGFR NON | >60 | >60 mL/min | | -[place] | | | + + + + [...] | + + + | Blood | [facility], [facility] [address] [facility] | | | [place] [address] | + + + + + | [...] + + + | | [facility]NA [place] POINT OF CARE TESTS [address] | | | [place] [address] | + + + BASIC METABOLIC SET [...] | >60 | >60 mL/min | | [place] | | | + + + + | EGFR NON | >60 | >60 mL/min | | -[place] | | | + + + + [...] | + + + | Blood | [facility], CORE [address] [facility] | | | [place] [address] | + + + + + | [...] | + + + | | SELENA Jorge [place], POINT OF CARE TESTS [address] | | | [place] [address] | + + + 12 LEAD ECG [...] | | [facility] [address] [facility] | | | [place] [address] | + + + CAPILLARY BLOOD GLUCOSE (NO CHG), POC (10/25/2017 3:35 AM) + +-------+ + | Component | Value | Ref Range | + +-------+ + | BLOOD GLUCOSE, POC | 87 | 70 - 99 mg/dL | + +-------+ + + + + | Specimen | Performing Laboratory | + + + | | SELENA [facility], POINT [facility] CARE TESTS [address] [facility] | | | [place] [address] | + + + 12 LEAD ECG [...] | | [facility] [address] [facility] | | | [place] [address] | + + + CALCIUM, IONIZED, WHOLE [...] | + + + | Blood | [facility], CORE [address] [facility] | | | [place] [address] | + + + PREALBUMIN (10/24/2017 4:50 PM) + + + + | Component | Value | Ref Range | + + + + | PREALBUMIN | 14.7 (L) | 17.0 - 42.0 mg/dL | + + + + + + + | Specimen | Performing Laboratory | + + + | Blood | [facility] [address] [place], [place] | | | [address] | + + + C-REACTIVE PROTEIN (10/24/2017 4:45 PM) + + + + | Component | Value | Ref Range | + + + + | C-REACTIVE PROTEIN | 16.0 (H) | <10.0 mg/L | + + + + + + + | Specimen | Performing Laboratory | + + + | Blood | [facility], CORE [address] [facility] | | | [place] [address] | + + + + + | [...] | + + + | Blood | [facility], CORE [address] [facility] | | | [place] [address] | + + + TRIGLYCERIDES, PLASMA (10/24/2017 4:45 PM) + +-------+ + | Component | Value | Ref Range | + +-------+ + | TRIGLYCERIDES | 93 | <150 mg/dL | + +-------+ + + + + | Specimen | Performing Laboratory | + + + | Blood | [facility], CORE [address] [facility] | | | [place] [address] | + + + + + | [...] | + + + | Blood | [facility], CORE [address] [facility] | | | [place] [address] | + + + ALKALINE PHOSPHATASE, PLASMA (10/24/2017 4:45 PM) + +---------+ + | Component | Value | Ref Range | + +---------+ + | ALK PHOS | 200 (H) | 56 - 119 U/L | + +---------+ + + + + | Specimen | Performing Laboratory | + + + | Blood | [facility], CORE [address] [facility] | | | [place] [address] | + + + BILIRUBIN DIRECT (10/24/2017 [...] | + + + | Blood | [facility], CORE [address] [facility] | | | [place], [place] [address] | + + + BILIRUBIN TOTAL (10/24/2017 4:45 PM) + +---------+ + | Component | Value | Ref Range | + +---------+ + | BILIRUBIN TOTAL | 0.3 | 0.3 - 1.2 mg/dL | + +---------+ + | BILI T CMNT | No Hemo | | + +---------+ + + + + | Specimen | Performing Laboratory | + + + | Blood | [facility], CORE [address] [facility] | | | [place] [address] | + + + PHOSPHORUS, PLASMA (10/24/2017 4:45 PM) + +-------+ + | Component | Value | Ref Range | + +-------+ + | PHOSPHORUS, PLASMA | 3.2 | 2.4 - 4.7 mg/dL | | (LAB) | | | + +-------+ + + + + | Specimen | Performing Laboratory | + + + | Blood | [facility], CORE [address] [place] [address] | | | [place] [address] | + + + ALBUMIN, PLASMA (10/24/2017 4:45 PM) + +---------+ + | Component | Value | Ref Range | + +---------+ + | ALBUMIN, PLASMA | 2.6 (L) | 3.5 - 4.7 g/dL | | (LAB) | | | + +---------+ + + + + | Specimen | Performing Laboratory | + + + | Blood | [facility], CORE [address] [place] [address] | | | [place] [address] | + + + MAGNESIUM, PLASMA (10/24/2017 4:45 PM) + +-------+ + | Component | Value | Ref Range | + +-------+ + | MAGNESIUM,PLASMA | 1.7 | 1.6 - 2.6 mg/dL | + +-------+ + + + + | Specimen | Performing Laboratory | + + + | Blood | [facility], CORE [address] [facility] | | | [place] [address] | + + + + + | [...] | >60 | >60 mL/min | | [place] | | | + + + + | EGFR NON | >60 | >60 mL/min | | -[place] | | | + + + + [...] | + + + | Blood | [facility], CORE [address] [facility] | | | [place] [address] | + + + + + | [...] Procedure Note | | Indications:TPN Procedure location: Unit[facility] Room: 4 Providers: Attending name: | | Attending physically present: No PICC Nurse name: Nery Sosa Pre-Procedure Consent: | | written consent obtained Consent given by: Next of kin Patient identity confirmed | | per protocol: Yes Team Pause: Immediatly prior to the procedure a pause per protocol | | was called. A pause verifies correct patient, procedure, equipment, product support representative | | and site/side marked as required. [...] Arm area Basilic vein. Catheter lot number: [id number] with a length of 55 cm | [...] Laboratory | + + + | | [facility] VOICE RECOGNITION 2 | + + + + + | Narrative | + + | EXAM: CT CHEST 1 VIEW HISTORY: PICC placed-pt ready. COMPARISON: October 12 | | 2018 FINDINGS: The right sided [...] Interface - 10/24/2017 3:43 PM PDT EXAM: CT CHEST 1 | | VIEW HISTORY: PICC [...] [facility], POINT OF CARE TESTS [address] | | | [place] [address] | + + + PROCEDURE NOTE (10/24/2017 12:06 PM) + + | Narrative | + + | Gunjan Kelly MD 10/24/2017 12:18 PM Operative Note - Trauma Surgery | | Patient Name: Artemio Temple Date of Surgery: 10/24/2017 | | Attending : Monster Rucker MD Resident: Gunjan Kelly MD Preoperative Diagnosis: | | Gastrostomy tube dysfunction Need for nutritional support Postoperative | | Diagnosis: Gastrostomy tube displacement Presence of new gastrostomy tube Need for | | nutritional support Procedure: 1. Esophagogastroscopy 2. PEG | | Indications: Artemio Temple is a 67 y.o. male with [...] Surgical Critical Care, PGY7 | | Pager: [phone] | + + CAPILLARY BLOOD GLUCOSE (NO CHG), POC (10/24/2017 10:31 AM) + +-------+ + | Component | Value | Ref Range | + +-------+ + | BLOOD GLUCOSE, POC | 85 | 70 - 99 mg/dL | + +-------+ + + + + | Specimen | Performing Laboratory | + + + | | [facility] - [place], POINT OF CARE TESTS [address] | | | [place] [address] | + + + CAPILLARY BLOOD GLUCOSE [...] GE[facility], POINT OF CARE TESTS [address] | | | [place] [address] | + + + RENAL FUNCTION SET [...] | >60 | >60 mL/min | | [place] | | | + + + + | EGFR NON | >60 | >60 mL/min | | -[place] | | | + + + + [...] | + + + | Blood | [facility], CORE [address] | | | [place] [address] | + + + + + | [...] | + + + | Blood | [facility], CORE [address] [facility] | | | [place], [place] [address] | + + + + + | [...] [facility], POINT OF CARE TESTS [address] | | | [place] [address] | + + + CBC AND AUTO [...] | + + + | Blood | [facility], CORE [address] [facility] | | | [place] [address] | + + + + + | [...] | >60 | >60 mL/min | | [place] | | | + + + + | EGFR NON | >60 | >60 mL/min | | -[place] | | | + + + + [...] | + + + | Blood | [facility], CORE [address] | | | [place] [address] | + + + + + | [...] | ------ CBC AND AUTO | | DIFF[[id number]] Abnormal Final | | result Please view [...] Laboratory | + + + | | [facility] CARDIOLOGY [address] [place] [address] | | | [place] [address] | + + + IR GASTROSTOMY TUBE EXCHANGE (10/22/2017 2:42 PM) + + + | Specimen | Performing Laboratory | + + + | | [facility] VOICE RECOGNITION | + + + + + | Narrative | + + | Procedure: Gastrostomy tube exchange Primary attending real estate sales agent: Peri | | Bryn Goodwin Preoperative diagnosis: Malfunctioning Gastrostomy tube | | Postoperative diagnosis: Same Operations: Operation 1. Removal of existing | | Gastrostomy tube over a guide wire Operation 2. Placement of 24 Zimbabwean GABRIEL | | gastrostomy over guide wire [...] | | glide wire the new 24 [place]an gastrostomy tube was inserted. The position of [...] Procedure: | | Gastrostomy tube exchangePrimary attending real estate sales agent: Peri Goodwin, | | BrynPreoperative diagnosis: Malfunctioning Gastrostomy tubePostoperative diagnosis: | | SameOperations:Operation 1. Removal of existing Gastrostomy tube over a guide | | wireOperation 2. Placement of 24 [place]an GABRIEL gastrostomy over guide wireNo sedation was [...] glide wire the | | new 24 Zimbabwean gastrostomy tube was inserted. The position of [...] stiff g lide wire the new 24 Zimbabwean | |gastrostomy tube was inserted. The position [...] Laboratory | + + + | | [facility] VASC US | + + + [...] Note | + + | 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, payworks In Interface - 10/22/2017 10:34 AM PDT [...] Laboratory | + + + | | [facility] [address] [address] OF CARDIOLOGY [address] [place] [address] | | | [place] [address] | + + + CT ABDOMEN AND PELVIS W IV CONTRAST (10/22/2017 3:56 AM) + + + | Specimen | Performing Laboratory | + + + | | [facility] VOICE RECOGNITION 2 | + + [...] | + + + | Blood | [facility], CORE [address] [facility] | | | [place] [address] | + + + + + | [...] | >60 | >60 mL/min | | [place] | | | + + + + | EGFR NON | >60 | >60 mL/min | | [place] | | | + + + + [...] | + + + | Blood | [facility], CORE [address] | | | [place] [address] | + + + + + | [...] | | ------ CBC (HEMOGRAM) | | ONLY[[id number]] Abnormal Final | | result Please view [...] | ECG IMPRESSION | Electronically signed by: RENO VIZCAINO | | | | 10-21-2017 18:00:01 | | + + + + + + + | Specimen | Performing Laboratory | + + + | | [facility] [address] [place] [address] | | | [place] [address] | + + + RENAL FUNCTION SET [...] | >60 | >60 mL/min | | [place] | | | + + + + | EGFR NON | >60 | >60 mL/min | | [place] | | | + + + + [...] | + + + | Blood | [facility], [facility] [address] [facility] | | | [place] [address] | + + + + + | [...] | + + + | Blood | [facility], CORE [address] [facility] | | | [place] [address] | + + + + + | [...] | ECG IMPRESSION | Electronically signed by: RENO VIZCAINO | | | | 10-20-2017 12:10:47 | | + + + + + + + | Specimen | Performing Laboratory | + + + | | [facility] [address] [place] [address] | | | [place] [address] | + + + MAGNESIUM, PLASMA (10/18/2017 9:01 AM) + +-------+ + | Component | Value | Ref Range | + +-------+ + | MAGNESIUM,PLASMA | 1.9 | 1.6 - 2.6 mg/dL | + +-------+ + + + + | Specimen | Performing Laboratory | + + + | Blood | [facility], CORE [address] [facility] | | | [place] [address] | + + + + + [...] | >60 | >60 mL/min | | [place] | | | + + + + | EGFR NON | >60 | >60 mL/min | | -[place] | | | + + + + [...] | + + + | Blood | [facility], CORE [address] [place] [address] | | | [place] [address] | + + + + + | [...] Laboratory | + + + | | [facility] [address] [place] [address] | | | [place] [address] | + + + RENAL FUNCTION SET [...] | >60 | >60 mL/min | | [place] | | | + + + + | EGFR NON | >60 | >60 mL/min | | -[place] | | | + + + + [...] | + + + | Blood | [facility], CORE [address] [place] [address] | | | [facility] [address] | + + + + + | [...] | + + + | Blood | [facility], CORE [address] [facility] | | | [place] [address] | + + + + + | [...] Laboratory | + + + | | [facility] C[facility] [address] [place] [address] | | | [place] [address] | + + + BASIC METABOLIC SET [...] | >60 | >60 mL/min | | [place] | | | + + + + | EGFR NON | >60 | >60 mL/min | | -[place] | | | + + + + [...] | + + + | Blood | [facility], CORE [address] [place] [address] | | | [place] [address] | + + + + + | [...] | + + + | Blood | [facility], CORE [address] [facility] | | | [place] [address] | + + + + + | [...] | | ------ CBC (HEMOGRAM) | | ONLY[[id number]] Abnormal Final | | result Please view results for these tests on the | | individual orders. | + + VASC LAB VENOUS DUPLEX LOWER EXTREMITY BILAT COMP (10/15/2017 3:08 PM) + + + | Specimen | Performing Laboratory | + + + | | [facility] VAS US | + + + + [...] Note | + + | 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, payworks In Interface - 10/15/2017 3:58 PM PDT [...] Laboratory | + + + | | [facility] [address] [place] [address] | | | [place] [address] | + + + CAPILLARY BLOOD GLUCOSE (NO CHG), POC (10/15/2017 6:01 AM) + +---------+ + | Component | Value | Ref Range | + +---------+ + | BLOOD GLUCOSE, POC | 134 (H) | 70 - 99 mg/dL | + +---------+ + + + + | Specimen | Performing Laboratory | + + + | | [facility], POINT OF [facility] TESTS [address] | | | [place] [address] | + + + CBC (HEMOGRAM) ONLY [...] | + + + | Blood | [facility], CORE [address] [facility] | | | [place] [address] | + + + + + | [...] | | ------ CBC (HEMOGRAM) | | ONLY[[id number]] Abnormal Final | | result Please view [...] Laboratory | + + + | | [facility], POINT OF CARE TESTS [address] | | | [place] [address] | + + + 12 LEAD ECG [...] | ECG IMPRESSION | Electronically signed by: RENO VIZCAINO | | | | 10-14-2017 16:59:23 | | + + + + + + + | Specimen | Performing Laboratory | + + + | | [facility] [address] [facility] | | | [place] [address] | + + + CBC (HEMOGRAM) ONLY [...] | + + + | Blood | [facility], CORE [address] [facility] | | | [place] [address] | + + + + + | [...] | >60 | >60 mL/min | | [place] | | | + + + + | EGFR NON | >60 | >60 mL/min | | -[place] | | | + + + + [...] Blood | [facility], CORE [address] [facility] | | | [place] [address] | + + + + + | [...] | + + + | Blood | [facility], [facility] [address] [facility] | | | [place] [address] | + + + + + | Narrative | + + | Reference range change effective 12/11/16. | + + CBC ONLY (10/14/2017 4:53 AM) + + + | Specimen | Performing Laboratory | + + + | Blood | | + + + + + | Narrative | + + | The following orders were created for panel order CBC ONLY. | | Procedure | | Abnormality Status | | --------- | | ------ CBC (HEMOGRAM) | | ONLY[[id number]] Abnormal Final | | result Please view [...] [facility], POINT OF CARE TESTS [address] | | | [place] [address] | + + + CAPILLARY BLOOD GLUCOSE [...] [facility], POINT OF CARE TESTS [address] | | | [facility] [place] [address] | + + + CBC (HEMOGRAM) ONLY [...] | + + + | Blood | [facility], CORE [address] [facility] | | | [place] [address] | + + + + + | [...] | >60 | >60 mL/min | | [place] | | | + + + + | EGFR NON | >60 | >60 mL/min | | -[place] | | | + + + + [...] | + + + | Blood | [facility], CORE [address] [place] [address] | | | [place] [address] | + + + + + | [...] | | ------ CBC (HEMOGRAM) | | ONLY[[id number]] Abnormal Final | | result Please view results for these tests on the | | individual orders. | + + OPERATION RECORD (10/12/2017 8:50 PM) + + | Procedure Note | + + | Pilar Cotto MD - 10/12/2017 8:50 PM PDT Date of Service: 10/12/2017 | | Attending Surgeon: Chaz Munoz MD Rn Telephone Triage(s): Randell Dixon M.D., | | fellow. George [...] tube into the | | stomach.Indications: Mr. Artemio Temple is a 67-year-old gentleman who has [...] Discussions were | | held with Mr. Artemio Temple's sister, prior to the procedure, and [...] saline. We then | | placed a 19-[place]an drain deep into the abscess cavity, tracking [...] case. Pilar Cotto, | | Edi Munoz MDKMW/MODLDD: 10/12/2017 19:50:06DT: 10/12/2017 20:50:54Job #: | | [id number] | + + X-RAY PORTABLE CHEST 1 VIEW (10/12/2017 7:50 PM) + + + | Specimen | Performing Laboratory | + + + | | [facility] VOICE RECOGNITION 2 | + + + + + | Narrative | + + | EXAM: CT CHEST 1 VIEW HISTORY: Evaluate endotracheal tube [...] Note | + + | 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, [facility] In Interface - 10/13/2017 9:04 AM PDT EXAM: CT CHEST 1 | | VIEW HISTORY: Evaluate [...] + + | | [facility] [address] | | | [place] [address] | + + + CT ABDOMEN AND [...] the report as now presented. Final signature: Maosn Sanchez MD 10/12/2017 | | 5:04 PM [...] Sanchez MD 10/12/2017 5:04 PM Preliminary: Dae Radford | MD Dmitriy Dictation initiated: Dae Izaguirre [...] | + + + | Blood | [facility], CORE [address] [facility] | | | [place] [address] | + + + + + | [...] | >60 | >60 mL/min | | [place] | | | + + + + | EGFR NON | >60 | >60 mL/min | | -[place] | | | + + + + [...] | + + + | Blood | [facility], CORE [address] [facility] | | | [place] [address] | + + + + + | [...] | + + + | Blood | [facility], CORE [address] [place] [address] | | | [place] [address] | + + + + + | [...] Laboratory | + + + | | [facility] [address] [place] [address] | | | [place] [address] | + + + 12 LEAD ECG [...] Laboratory | + + + | | [facility] [address] [place] [address] | | | [place] [address] | + + + CBC (HEMOGRAM) ONLY [...] | + + + | Blood | [facility] [address] [facility] | | | [place], [place] [address] | + + + + + | [...] | + + + | Blood | [facility], CORE [address] [place] [address] | | | [place] [address] | + + + + + | [...] | >60 | >60 mL/min | | [place] | | | + + + + | EGFR NON | >60 | >60 mL/min | | [place] | | | + + + + [...] | + + + | Blood | [facility], CORE [address] [facility] | | | [place] [address] | + + + + + | [...] | | ------ CBC (HEMOGRAM) | | ONLY[[id number]] Abnormal Final | | result Please view results for these tests on the | | individual orders. | + + PROCEDURE NOTE (10/10/2017 10:00 PM) + + | Narrative | + + | Darius Link MD 10/12/2017 11:11 AM OPERATIVE REPORT DATE OF | | OPERATION: 10/10/2017 ATTENDING SURGEON: 1. Dr. Munoz SOCK MENDER: 1. Darius | | MD Nikolay INDICATIONS: Dysphagia and need for technician terminal and repeater nutrition access | | PREOPERATIVE DIAGNOSIS: 1.Dysphagia and need for assisted nutrition access | | POSTOPERATIVE DIAGNOSIS: 1.Same [...] + | Narrative | + + | William Hrenandez MD 10/10/2017 10:26 AM INPATIENT BRIEF OPERATIVE NOTE | | Procedure Date: 10/10/2017 Author: WILLIAM HERNANDEZ MD Attending Physician: | | Magdiel [...] to follow. | | [place] [id number] Chief Resident Neurosurgery | + + CBC [...] | + + + | Blood | [facility], CORE [address] [facility] | | | [place] [address] | + + + + + | [...] | | ------ CBC (HEMOGRAM) | | ONLY[[id number]] Abnormal Final | | result Please view [...] | >60 | >60 mL/min | | [place] | | | + + + + | EGFR NON | >60 | >60 mL/min | | [place] | | | + + + + [...] | + + + | Blood | [facility], CORE [address] [facility] | | | [place] [address] | + + + + + | [...] | + + + | Blood | [facility], CORE [address] | | | [place] [address] | + + + + + | Narrative | + + | Reference range change effective 12/11/16. | + + OPERATION RECORD (10/10/2017 12:40 PM) + + | Procedure Note | + + | Magdiel Stock MD - 10/10/2017 12:40 PM PDT Date of Service: 10/10/2017 Attending | | Surgeon: Magdiel Stock MD Rn Telephone Triage(s): William Hernandez, | | . Preoperative Diagnoses: 1. [...] This is a 67-year-old male. Please see [facility] for full details. He | [...] consent was signed.Procedure In | | Detail: Artemio Temple was identified in the preoperative holding [...] All counts were correct at the end x2.William | | A FRANKIE Hernandez was present for the critical portions of the procedure as described in | | the note for this encounter.Sonal Nunez MD[facility]AN [facility] [id number] [facility] | | [place] [phone] Orina, MDFA/MODLDD: | | 10/10/2017 11:52:15DT: 10/10/2017 12:40:41Job #: [id number] | | | | | |I was present for the critical portions of the procedure as described in the note for this encounter. | | | |Magdiel Stock MD | | | |Magdiel Stock MD | |[facility] 8C | |[address] | |[facility] | |[place] [address] | |[phone] | | | | | |Magdiel Stock MD | |FAH/MODL | | | | | | /[id number] | + + X-RAY ABDOMEN 1 VIEW [...] + + | Tissue - Head | [facility] [address] [place], [place] | | | [address] | + + + + + | [...] - Head | [facility] [place] [address] [address] [facility], [place] | | | [address] | + + + + + | [...] + + | Swab - Head | [facility] [place] [address] [place], [place] | | | [address] | + + + + + | [...] + + | Swab - Head | [facility] [place] [address] [place], [place] | | | [address] | + + + + + | Narrative | + + | Culture Report: No acid fast bacteria isolated at 6 weeks. AFB Smear: AFB not | | detected | + + CULTURE, FUNGAL EXCEPT BLOOD, SKIN, HAIR, NAIL (10/10/2017 9:00 AM) + + + | Specimen | Performing Laboratory | + + + | Swab - Head | [facility] [id number] [place] [address] | | | [address] | + + + + + | [...] + + | Swab - Head | [facility] [place] [address] [place], [place] | | | [address] | + + + + + | [...] + + | Swab - Head | [facility] [place] [address] [place], [place] | | | [address] | + + + + + | [...] + + | Tissue - Head | [facility] [place] [address] [place], [place] | | | [address] | + + + + + | [...] + + | Tissue - Head | [facility] [place] [address] [address] [place], [place] | | | [address] | + + + + + | [...] + + | Swab - Head | [facility] [place] [address] [place], [place] | | | [address] | + + + + + | [...] + + | Swab - Head | [facility] [address] [place], [place] | | | [address] | + + + + + | [...] + + | Swab - Head | [facility] [address] [address] [place], [place] | | | [address] | + + + + + | Narrative | + + | Culture Report: No acid fast bacteria isolated at 6 weeks. AFB Smear: AFB not | | detected | + + CULTURE, FUNGAL EXCEPT BLOOD, SKIN, HAIR, NAIL (10/10/2017 8:38 AM) + + + | Specimen | Performing Laboratory | + + + | Swab - Head | [facility] [place] [address] [address] [place], [place] | | | [address] | + + + + + | [...] + + | Swab - Head | [facility] [place] [address] [place], [place] | | | [address] | + + + + + | [...] + + | Swab - Head | [facility] [place] [address] [address] [place], [place] | | | [address] | + + + + + | Narrative | + + | Culture Report: No acid fast bacteria isolated at 6 weeks. AFB Smear: AFB not | | detected | + + CULTURE, FUNGAL EXCEPT BLOOD, SKIN, HAIR, NAIL (10/10/2017 8:31 AM) + + + | Specimen | Performing Laboratory | + + + | Swab - Head | [facility] [place] [address] [address] [place], [place] | | | [address] | + + + + + | [...] - Head | [facility] [place] [address] [place], [place] | | | [address] | + + + + + | [...] + + | Swab - Head | [facility] [address] [place], [place] | | | [address] | + + + + + | Narrative | + + | Culture Report: No acid fast bacteria isolated at 6 weeks. AFB Smear: AFB not | | detected | + + CT HEAD WO CONTRAST (10/10/2017 3:01 AM) + + + | Specimen | Performing Laboratory | + + + | | [facility] RADIOLOGY VOICE RECOGNITION 2 | + + [...] | + + + | Blood | [facility], CORE [address] [facility] | | | [place], [place] [address] | + + + CBC (HEMOGRAM) ONLY [...] | + + + | Blood | [facility], CORE [address] | | | [place] [address] | + + + + + | [...] | | ------ CBC (HEMOGRAM) | | ONLY[[id number]] Abnormal Final | | result Please view [...] | + + + | Blood | [facility], [facility] [address] [place] [address] | | | [place] [address] | + + + + + | [...] | >60 | >60 mL/min | | [place] | | | + + + + | EGFR NON | >60 | >60 mL/min | | [place] | | | + + + + [...] | + + + | Blood | [facility], CORE [address] [facility] | | | [place] [address] | + + + + + | [...] Laboratory | + + + | | [facility] DEPT OF CARDIOLOGY [address] [place] [address] | | | [place] [address] | + + + PRODUCT - RED CELLS LEUKOREDUCED (10/09/2017 5:12 PM) + + + + | Component | Value | Ref Range | + + + + | PRODUCT DESCRIPTION | -1 RED BLOOD CELL ADENINE-SALINE ADDED | | | | LEUKOCYTE | | + + + + | PRODUCT UNIT # | [id number] | | + + + + | UNIT ABO | O | | + + + + | UNIT RH | POS | | + + + + | STATUS OF UNIT | Returned to Blood Bank | | + + + + | EXPIRATION DATE | [id number] | | + + + + | BLOOD TYPE BARCODE | 5100 | | + + + + | BLOOD PRODUCT CODE | [id number] | | + + + + + + + | Specimen | Performing Laboratory | + + + | | [facility], TRANSFUSION MEDICINE [address] [facility] | | | [place] [address] | + + + PRODUCT - RED CELLS LEUKOREDUCED (10/09/2017 5:12 PM) + + + + | Component | Value | Ref Range | + + + + | PRODUCT DESCRIPTION | -1 RED BLOOD CELL ADENINE-SALINE ADDED | | | | LEUKOCYTE | | + + + + | PRODUCT UNIT # | [id number] | | + + + + | UNIT ABO | O | | + + + + | UNIT RH | POS | | + + + + | STATUS OF UNIT | Returned to Blood Bank | | + + + + | EXPIRATION DATE | [phone] | | + + + + | BLOOD TYPE BARCODE | 5100 | | + + + + | BLOOD PRODUCT CODE | [id number] | | + + + + + + + | Specimen | Performing Laboratory | + + + | | [facility], [place] [address] [place] [address] | | | [place] [address] | + + + ANTIBODY IDENTIFICATION (10/09/2017 5:01 PM) + + + + | Component | Value | Ref Range | + + + + | ANTIBODY 1 | Antibody present, unable to identify | | + + + + + + + | Specimen | Performing Laboratory | + + + | Blood | [facility], TRANSFUSION MEDICINE [address] [facility] | | | [place] [address] | + + + ANTIBODY SCREEN (10/09/2017 5:01 PM) + + + + | Component | Value | Ref Range | + + + + | Antibody Screen | Positive | | + + + + + + + | Specimen | Performing Laboratory | + + + | Blood | [facility], TRANSFUSION MEDICINE [address] [facility] | | | [place] [address] | + + + ABO & RH [...] | + + + | Blood | [facility], TRANSFUSION MEDICINE [address] [facility] | | | [place] [address] | + + + TYPE AND SCREEN [...] | ------ ABO & RH | | TYPE[[id number]] F | | inal result ANTIBODY | | SCREEN[[id number]] Fin | | al result Please view [...] | + + + | Blood | [facility], [facility] [address] [facility] | | | [place] [address] | + + + + + | [...] | + + + | | [facility] [address] [place] [address] | | | [place] [address] | + + + VASC LAB VENOUS [...] Note | + + | 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, [facility] Res In Interface - 10/08/2017 10:47 AM [...] [facility], POINT OF CARE TESTS [address] [facility] [address] | | | [place] [address] | + + + CBC (HEMOGRAM) ONLY [...] | + + + | Blood | [facility], CORE [address] | | | [place] [address] | + + + + + | [...] | + + + | Blood | [facility], CORE [address] [facility] | | | [place] [address] | + + + + + | [...] | | ------ CBC (HEMOGRAM) | | ONLY[[id number]] Abnormal Final | | result Please view [...] | >60 | >60 mL/min | | [place] | | | + + + + | EGFR NON | >60 | >60 mL/min | | -[place] | | | + + + + [...] | + + + | Blood | [facility], [facility] [address] | | | [place] [address] | + + + + + | [...] Laboratory | + + + | | [facility] [place], POINT OF CARE TESTS [address] | | | [place] [address] | + + + CAPILLARY BLOOD GLUCOSE (NO CHG), POC (10/07/2017 10:30 PM) + +---------+ + | Component | Value | Ref Range | + +---------+ + | BLOOD GLUCOSE, POC | 173 (H) | 70 - 99 mg/dL | + +---------+ + + + + | Specimen | Performing Laboratory | + + + | | [facility], POINT OF CARE TESTS [address] | | | [place] [address] | + + + CAPILLARY BLOOD GLUCOSE [...] [facility], POINT OF CARE TESTS [address] | | | [place] [address] | + + + CAPILLARY BLOOD GLUCOSE (NO CHG), POC (10/07/2017 11:43 AM) + +---------+ + | Component | Value | Ref Range | + +---------+ + | BLOOD GLUCOSE, POC | 142 (H) | 70 - 99 mg/dL | + +---------+ + + + + | Specimen | Performing Laboratory | + + + | | [facility], POINT OF CARE TESTS [address] | | | [place] [address] | + + + CAPILLARY BLOOD GLUCOSE (NO CHG), POC (10/07/2017 6:33 AM) + +---------+ + | Component | Value | Ref Range | + +---------+ + | BLOOD GLUCOSE, POC | 117 (H) | 70 - 99 mg/dL | + +---------+ + + + + | Specimen | Performing Laboratory | + + + | | [facility] [place], POINT OF CARE TESTS [address] | | | [place] [address] | + + + CBC (HEMOGRAM) ONLY [...] | + + + | Blood | [facility], CORE [address] | | | [place] [address] | + + + + + | [...] | + + + | Blood | [facility], CORE [address] [facility] | | | [place] [address] | + + + + + | [...] | | ------ CBC (HEMOGRAM) | | ONLY[[id number]] Abnormal Final | | result Please view [...] | >60 | >60 mL/min | | [place] | | | + + + + | EGFR NON | >60 | >60 mL/min | | [place] | | | + + + + [...] | + + + | Blood | [facility], CORE [address] [facility] | | | [place] [address] | + + + + + | [...] Laboratory | + + + | | [facility] [place] POINT OF CARE TESTS [address] | | | [place] [address] | + + + CAPILLARY BLOOD GLUCOSE (NO CHG), POC (10/06/2017 6:03 PM) + +---------+ + | Component | Value | Ref Range | + +---------+ + | BLOOD GLUCOSE, POC | 107 (H) | 70 - 99 mg/dL | + +---------+ + + + + | Specimen | Performing Laboratory | + + + | | [facility] [place], POINT OF CARE TESTS [address] | | | [place] [address] | + + + 12 LEAD ECG [...] Laboratory | + + + | | [facility] [address] [place] [address] | | | [place] [address] | + + + CAPILLARY BLOOD GLUCOSE (NO CHG), POC (10/06/2017 12:03 PM) + +-------+ + | Component | Value | Ref Range | + +-------+ + | BLOOD GLUCOSE, POC | 87 | 70 - 99 mg/dL | + +-------+ + + + + | Specimen | Performing Laboratory | + + + | | [facility] POINT OF CARE TESTS [address] | | | [place] [address] | + + + CBC (HEMOGRAM) ONLY [...] | + + + | Blood | [facility], [facility] [address] [facility] [address] | | | [place] [address] | + + + + + | [...] | + + + | Blood | [facility], CORE [address] [facility] | | | [place], [place] [address] | + + + + + | [...] | | ------ CBC (HEMOGRAM) | | ONLY[[id number]] Abnormal Final | | result Please view [...] | >60 | >60 mL/min | | [place] | | | + + + + | EGFR NON | >60 | >60 mL/min | | [place] | | | + + + + [...] | + + + | Blood | [facility], CORE [address] | | | [place] [address] | + + + + + | [...] Laboratory | + + + | | [facility] POINT OF CARE TESTS [address] | | | [place] [address] | + + + CAPILLARY BLOOD GLUCOSE (NO CHG), POC (10/06/2017 1:04 AM) + +-------+ + | Component | Value | Ref Range | + +-------+ + | BLOOD GLUCOSE, POC | 91 | 70 - 99 mg/dL | + +-------+ + + + + | Specimen | Performing Laboratory | + + + | | [facility] - [place], POINT OF CARE TESTS [address] | | | [place] [address] | + + + CAPILLARY BLOOD GLUCOSE [...] [facility] POINT OF CARE TESTS [address] | | | [place] [address] | + + + CAPILLARY BLOOD GLUCOSE [...] [facility], POINT OF CARE TESTS [address] | | | [place] [address] | + + + 12 LEAD ECG [...] Laboratory | + + + | | [facility] [address] [place] [address] | | | [place] [address] | + + + CBC (HEMOGRAM) ONLY [...] | + + + | Blood | [facility], [facility] [address] | | | [place] [address] | + + + + + | [...] | + + + | Blood | [facility], CORE [address] [facility] | | | [place] [address] | + + + + + | [...] | | ------ CBC (HEMOGRAM) | | ONLY[[id number]] Abnormal Final | | result Please view [...] | >60 | >60 mL/min | | [place] | | | + + + + | EGFR NON | >60 | >60 mL/min | | [place] | | | + + + + [...] | + + + | Blood | [facility], CORE [address] [facility] | | | [place] [address] | + + + + + | [...] [facility], POINT OF CARE TESTS [address] | | | [place] [address] | + + + CAPILLARY BLOOD GLUCOSE [...] [facility] POINT OF CARE TESTS [address] | | | [place] [address] | + + + CAPILLARY BLOOD GLUCOSE (NO CHG), POC (10/04/2017 5:47 PM) + +---------+ + | Component | Value | Ref Range | + +---------+ + | BLOOD GLUCOSE, POC | 123 (H) | 70 - 99 mg/dL | + +---------+ + + + + | Specimen | Performing Laboratory | + + + | | [facility], POINT OF CARE TESTS [address] | | | [place] [address] | + + + CAPILLARY BLOOD GLUCOSE (NO CHG), POC (10/04/2017 12:30 PM) + +---------+ + | Component | Value | Ref Range | + +---------+ + | BLOOD GLUCOSE, POC | 137 (H) | 70 - 99 mg/dL | + +---------+ + + + + | Specimen | Performing Laboratory | + + + | | [facility] [place], POINT OF CARE TESTS [address] | | | [place] [address] | + + + CAPILLARY BLOOD GLUCOSE (NO CHG), POC (10/04/2017 5:55 AM) + +---------+ + | Component | Value | Ref Range | + +---------+ + | BLOOD GLUCOSE, POC | 128 (H) | 70 - 99 mg/dL | + +---------+ + + + + | Specimen | Performing Laboratory | + + + | | [facility] POINT OF CARE TESTS [address] | | | [place] [address] | + + + CBC (HEMOGRAM) ONLY [...] | + + + | Blood | [facility], [facility] [address] | | | [place] [address] | + + + + + | [...] | + + + | Blood | [facility], CORE [address] [facility] | | | [place] [...] | | ------ CBC (HEMOGRAM) | | ONLY[[id number]] Abnormal Final | | result Please view [...] | >60 | >60 mL/min | | [place] | | | + + + + | EGFR NON | >60 | >60 mL/min | | [place] | | | + + + + [...] | + + + | Blood | [facility], CORE [address] [facility] [address] | | | [place] [address] | + + + + + | [...] [facility], POINT OF CARE TESTS [address] | | | [place] [address] | + + + CAPILLARY BLOOD GLUCOSE [...] [facility] POINT OF CARE TESTS [address] | | | [place] [address] | + + + URINE, MICROSCOPIC EXAM [...] + | Urine - Clean catch | [facility], CORE [address] [place] [address] RD | | | [place] [address] | + + + RPR SERUM (10/03/2017 3:36 PM) + + + + | Component | Value | Ref Range | + + + + | RPR SRM QUAL | Non ReactiveComment: Rapid Plasma Reagin | Non Reactive | | | screening test is Non-Reactive. No further | | | | reflex testing is required.Performed by | | | | [place],[address] [facility],[place] | | | | [id number] [email or web address], Gui | | | | MD Arcadio, Lab. Director | | | |[email or web address], Gui Ervin MD, Lab. Director | | + + + + + + + | Specimen | Performing Laboratory | + + + | Blood | [facility] UN[facility] - INT [address] [facility] | | | [place] [address] | + + + VITAMIN B-12 (10/03/2017 [...] | + + + | Blood | [facility], CORE [address] | | | [place] [address] | + + + TSH (10/03/2017 3:36 PM) + + + + | Component | Value | Ref Range | + + + + | TSH | 0.33 (L) | 0.46 - 5.56 mIU/L | + + + + + + + | Specimen | Performing Laboratory | + + + | Blood | [facility], CORE [address] | | | [place] [address] | + + + + + | Narrative | + + | TSH reference ranges are influenced by a variety of environmental influences, age, | | gender and ethnicity. The supplied reference limits are based on published values | | utilizing a similar TSH assay, and should be interpreted with caution. | + + HIV-1,2 AB/HIV-1 P24 AG SCRN (10/03/2017 3:36 PM) + + + + | Component | Value | Ref Range | + + + + | HIV-1,2 AB/HIV-1 P24 | Negative | Negative | | AG SCREEN | | | + + + + + + + | Specimen | Performing Laboratory | + + + | Blood | [facility], SPECIAL IMM + COA [address] [facility] | | | [place] [address] | + + + + + | Narrative | + + | HIV-1 p24 Ag and HIV-1,2 Ab not detected. Test modified from original | | residential substance abuse counselor's approved specifications. The performance of the COMPUTER TECHNOLOGY INSTRUCTOR HIV Combo | | test, with or [...] [facility] POINT OF CARE TESTS [address] | | | [place] [address] | + + + CAPILLARY BLOOD GLUCOSE [...] [facility], POINT OF CARE TESTS [address] | | | [place] [address] | + + + CBC (HEMOGRAM) ONLY [...] | + + + | Blood | [facility] SERVICES, CORE [address] [facility] | | | [place] [address] | + + + + + | [...] | + + + | Blood | [facility], CORE [address] [facility] | | | [place] [address] | + + + + + | Narrative | + + | Reference range change effective 12/11/16. | + + CBC ONLY (10/03/2017 6:03 AM) + + + | Specimen | Performing Laboratory | + + + | Blood | | + + + + + | Narrative | + + | The following orders were created for panel order CBC ONLY. | | Procedure | | Abnormality Status | | --------- | | ------ CBC (HEMOGRAM) | | ONLY[[id number]] Abnormal Final | | result Please view [...] | >60 | >60 mL/min | | [place] | | | + + + + | EGFR NON | >60 | >60 mL/min | | [place] | | | + + + + [...] | + + + | Blood | [facility], CORE [address] [facility] | | | [place] [address] | + + + + + | [...] + + + | | [facility] CARE [facility] [address] | | | [place] [address] | + + + X-RAY SPINE CERVICAL [...] [facility], POINT OF CARE TESTS [address] | | | [place] [address] | + + + 12 LEAD ECG [...] + | | [facility] [address] [facility] | | | [place] [address] | + + + PROCEDURE NOTE (10/02/2017 [...] Laboratory | + + + | | [facility] RAD[facility] VOICE RECOGNITION 2 | + + + + + | Narrative | + + | EXAM: CT CHEST 1 VIEW HISTORY: Evaluate PICC placement [...] Interface - 10/02/2017 2:07 PM PDT EXAM: CT CHEST 1 | | VIEW HISTORY: Evaluate [...] + + + | | [facility] [place], POINT OF CARE TESTS [address] | | | [place] [address] | + + + X-RAY PORTABLE CHEST 1 VIEW (10/02/2017 8:56 AM) + + + | Specimen | Performing Laboratory | + + + | | [facility] RADIOLOGY VOICE RECOGNITION 2 | + + + + + | Narrative | + + | EXAM: CT CHEST 1 VIEW HISTORY: new leukocytosis, eval [...] Sarmiento on 10/02/2017 10:20 AM by Marcelo Morley MD. I have personally reviewed the images and, if necessary, edited the | | report. I agree with the report as now presented. Final signature: Prabhakar Neri MD 10/02/2017 10:26 AM Preliminary: Marcelo Morley MD Dictation initiated: | | Marcelo Morley MD 10/02/2017 10:20 AM | + + + + | Procedure Note | + + | 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, Radiant Res In Interface - 10/02/2017 10:27 AM PDT EXAM: CT CHEST 1 | | VIEW HISTORY: new [...] [facility], POINT OF CARE TESTS [address] | | | [place] [address] | + + + CBC (HEMOGRAM) ONLY [...] | + + + | Blood | [facility], CORE [address] [facility] | | | [place] [address] | + + + + + | [...] | + + + | Blood | [facility], CORE [address] [facility] | | | [place] [address] | + + + + + | Narrative | + + | Reference range change effective 8/15/17. | + + CBC ONLY (10/02/2017 5:12 AM) + + + | Specimen | Performing Laboratory | + + + | Blood | | + + + + + | Narrative | + + | The following orders were created for panel order CBC ONLY. | | Procedure | | Abnormality Status | | --------- | | ------ CBC (HEMOGRAM) | | ONLY[[id number]] Abnormal Final | | result Please view [...] | >60 | >60 mL/min | | [place] | | | + + + + | EGFR NON | >60 | >60 mL/min | | [place] | | | + + + + [...] | + + + | Blood | [facility], CORE [address] [facility] | | | [place] [address] | + + + + + | [...] | + + + | | SE[facility]NA [facility]OA POINT OF CARE TESTS [address] | | | [place] [address] | + + + CAPILLARY BLOOD GLUCOSE [...] GE[facility]O POINT OF CARE TESTS [address] | | | [place] [address] | + + + X-RAY ABD LTD FEEDING TUBE EVAL (10/01/2017 1:23 PM) + + + | Specimen | Performing Laboratory | + + + | | [facility] VOICE RECOGNITION 2 | + + [...] Edelmira Parsons MD Dictation initiated: Edelmira Parsons | | 10/01/2017 2:08 PM | + [...] [facility] POINT OF CARE TESTS [address] | | | [place] [address] | + + + [facility] VENOUS DUPLEX LOWER EXTREMITY BILAT COMP (10/01/2017 11:14 AM) + + + | Specimen | Performing Laboratory | + + + | | [facility] VAS US | + + + + [...] Note | + + | 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, Healarium Res In Interface - 10/01/2017 11:34 AM PDT [...] [facility], POINT OF CARE TESTS [address] | | | [place] [address] | + + + CBC (HEMOGRAM) ONLY [...] | + + + | Blood | [facility], CORE [address] [facility] | | | [place] [address] | + + + + + | [...] | + + + | Blood | [facility], CORE [address] | | | [place] [address] | + + + + + | [...] | | ------ CBC (HEMOGRAM) | | ONLY[[id number]] Abnormal Final | | result Please view [...] | >60 | >60 mL/min | | [place] | | | + + + + | EGFR NON | >60 | >60 mL/min | | [place] | | | + + + + [...] | + + + | Blood | [facility], CORE [address] [facility] | | | [place] [address] | + + + + + | [...] + + + | | [facility] [place], POINT OF CARE TESTS [address] | | | [place] [address] | + + + CAPILLARY BLOOD GLUCOSE [...] SELENA GENAO, POINT OF CARE TESTS [address] | | | [place] [address] | + + + 12 LEAD ECG [...] + | | [facility] DE[facility] OF CARDIOLOGY [address] [place] [address] | | | [place] [address] | + + + CT HEAD WO CONTRAST (09/30/2017 1:02 PM) + + + | Specimen | Performing Laboratory | + + + | | [facility] VOICE RECOGNITION 2 | + + [...] Note | + + | 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, Healarium Res In Interface - 09/30/2017 1:28 PM [...] [facility], POINT OF CARE TESTS [address] | | | [place] [address] | + + + CAPILLARY BLOOD GLUCOSE (NO CHG), POC (09/30/2017 6:26 AM) + +---------+ + | Component | Value | Ref Range | + +---------+ + | BLOOD GLUCOSE, POC | 151 (H) | 70 - 99 mg/dL | + +---------+ + + + + | Specimen | Performing Laboratory | + + + | | [facility], POINT OF CARE TESTS [address] | | | [place] [address] | + + + CBC (HEMOGRAM) ONLY [...] | + + + | Blood | [facility], CORE [address] [place] [address] | | | [place] [address] | + + + + + | [...] | + + + | Blood | [facility], CORE [address] [facility] | | | [place] [address] | + + + + + | [...] | | ------ CBC (HEMOGRAM) | | ONLY[[id number]] Abnormal Final | | result Please view [...] | >60 | >60 mL/min | | [place] | | | + + + + | EGFR NON | >60 | >60 mL/min | | [place] | | | + + + + [...] | + + + | Blood | [facility], CORE [address] [place] [address] | | | [place] [address] | + + + + + | [...] Laboratory | + + + | | [facility] [place], POINT OF CARE TESTS [address] | | | [place] [address] | + + + CAPILLARY BLOOD GLUCOSE [...] GENAO, POINT OF CARE TESTS [address] | | | [place] [address] | + + + CAPILLARY BLOOD GLUCOSE [...] [facility], POINT OF CARE TESTS [address] | | | [place] [address] | + + + 12 LEAD ECG [...] | ECG IMPRESSION | Electronically signed by: RENO VIZCAINO | | | | 09-30-2017 08:36:54 | | + + + + + + + | Specimen | Performing Laboratory | + + + | | [facility] [address] [facility] | | | [place] [address] | + + + CAPILLARY BLOOD GLUCOSE [...] [facility] POINT OF CARE TESTS [address] | | | [place] [address] | + + + MAGNESIUM, PLASMA (09/29/2017 4:30 AM) + +-------+ + | Component | Value | Ref Range | + +-------+ + | MAGNESIUM,PLASMA | 2.1 | 1.6 - 2.6 mg/dL | + +-------+ + + + + | Specimen | Performing Laboratory | + + + | Blood | [facility], CORE [address] | | | [place] [address] | + + + + + | [...] | >60 | >60 mL/min | | [place] | | | + + + + | EGFR NON | >60 | >60 mL/min | | [place] | | | + + + + [...] | + + + | Blood | [facility], CORE [address] [facility] | | | [place] [address] | + + + + + | [...] | + + + | Blood | [facility], CORE [address] [facility] | | | [place] [address] | + + + + + | [...] | | ------ CBC (HEMOGRAM) | | ONLY[[id number]] Abnormal Final | | result Please view [...] [place], POINT OF CARE TESTS [address] | | | [place] [address] | + + + CAPILLARY BLOOD GLUCOSE (NO CHG), POC (09/28/2017 5:26 PM) + +---------+ + | Component | Value | Ref Range | + +---------+ + | BLOOD GLUCOSE, POC | 112 (H) | 70 - 99 mg/dL | + +---------+ + + + + | Specimen | Performing Laboratory | + + + | | [facility] POINT OF CARE TESTS [address] | | | [place] [address] | + + + CAPILLARY BLOOD GLUCOSE [...] [facility] POINT OF CARE TESTS [address] | | | [place] [address] | + + + 12 LEAD ECG [...] Laboratory | + + + | | [facility] [address] [place] [address] | | | [place] [address] | + + + CAPILLARY BLOOD GLUCOSE [...] [facility] POINT OF CARE TESTS [address] | | | [facility] [place] [address] | + + + CBC (HEMOGRAM) ONLY [...] | + + + | Blood | [facility], CORE [address] [facility] | | | [place] [address] | + + + + + | [...] | + + + | Blood | [facility], CORE [address] | | | [place] [address] | + + + + + | [...] | | ------ CBC (HEMOGRAM) | | ONLY[[id number]] Abnormal Final | | result Please view [...] | >60 | >60 mL/min | | [place] | | | + + + + | EGFR NON | >60 | >60 mL/min | | [place] | | | + + + + [...] | + + + | Blood | [facility], CORE [address] [facility] | | | [place] [address] | + + + + + | [...] GE[facility], POINT OF CARE TESTS [address] | | | [place] [address] | + + + CAPILLARY BLOOD GLUCOSE [...] SELENA GENAO, POINT OF CARE TESTS [address] | | | [place] [address] | + + + MODIFIED BARIUM SWALLOWING [...] Note | + + | 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, Healarium Res In Interface - 09/27/2017 2:19 PM [...] poorly cleared with dry swallows. Please see [facility] pathology report for full details | | [...] + + + | | [facility] [place], POINT OF CARE TESTS [address] | | | [place] [address] | + + + CAPILLARY BLOOD GLUCOSE [...] [facility], POINT OF CARE TESTS [address] | | | [place] [address] | + + + CBC (HEMOGRAM) ONLY [...] | + + + | Blood | [facility], CORE [address] [facility] | | | [place] [address] | + + + + + | [...] | | ------ CBC (HEMOGRAM) | | ONLY[[id number]] Abnormal Final | | result Please view [...] | + + + | Blood | [facility], CORE [address] | | | [place] [address] | + + + + + | [...] | >60 | >60 mL/min | | [place] | | | + + + + | EGFR NON | >60 | >60 mL/min | | [place] | | | + + + + [...] | + + + | Blood | [facility], CORE [address] | | | [place] [address] | + + + + + | [...] GE[facility], POINT OF CARE TESTS [address] | | | [place] [address] | + + + CAPILLARY BLOOD GLUCOSE (NO CHG), POC (09/26/2017 5:32 PM) + +---------+ + | Component | Value | Ref Range | + +---------+ + | BLOOD GLUCOSE, POC | 130 (H) | 70 - 99 mg/dL | + +---------+ + + + + | Specimen | Performing Laboratory | + + + | | SELENA GENAO POINT OF [facility] TESTS [address] | | | [place] [address] | + + + 12 LEAD ECG [...] Laboratory | + + + | | [facility] [address] [place] [address] | | | [place] [address] | + + + CAPILLARY BLOOD GLUCOSE [...] [facility] POINT OF CARE TESTS [address] | | | [place] [address] | + + + CAPILLARY BLOOD GLUCOSE (NO CHG), POC (09/26/2017 9:22 AM) + +---------+ + | Component | Value | Ref Range | + +---------+ + | BLOOD GLUCOSE, POC | 119 (H) | 70 - 99 mg/dL | + +---------+ + + + + | Specimen | Performing Laboratory | + + + | | [facility], POINT OF CARE TESTS [address] | | | [place] [address] | + + + CAPILLARY BLOOD GLUCOSE [...] SELENA GENAO, POINT OF CARE TESTS [address] | | | [place] [address] | + + + CBC (HEMOGRAM) ONLY [...] | + + + | Blood | [facility], CORE [address] | | | [place] [address] | + + + + + | [...] | + + + | Blood | [facility], CORE [address] [facility] | | | [place] [address] | + + + + + | [...] | | ------ CBC (HEMOGRAM) | | ONLY[[id number]] Abnormal Final | | result Please view [...] | >60 | >60 mL/min | | [place] | | | + + + + | EGFR NON | >60 | >60 mL/min | | [place] | | | + + + + [...] | + + + | Blood | [facility], [facility] [address] | | | [place] [address] | + + + + + | [...] + + + | | [facility] [place], POINT OF CARE TESTS [address] | | | [place] [address] | + + + MRI BRAIN WWO CONTRAST (09/25/2017 6:54 AM) + + + | Specimen | Performing Laboratory | + + + | | [facility] RADIOLOGY VOICE RECOGNITION 2 | + + [...] | + + + | Blood | [facility], CORE [address] [facility] | | | [place] [address] | + + + + + | [...] | + + + | Blood | [facility], CORE [address] [facility] | | | [place] [address] | + + + + + | [...] | | ------ CBC (HEMOGRAM) | | ONLY[[id number]] Abnormal Final | | result Please view [...] | >60 | >60 mL/min | | [place] | | | + + + + | EGFR NON | >60 | >60 mL/min | | [place] | | | + + + + [...] | + + + | Blood | [facility], CORE [address] [place] [address] | | | [place] [address] | + + + + + | [...] | + + + | | [facility] [address] [place] [address] | | | [facility] [address] | + + + MODIFIED BARIUM SWALLOWING [...] |Preliminary: Edelmira Parsons MD | + + VASC LAB VENOUS DUPLEX LOWER EXTREMITY BILAT COMP (09/24/2017 11:57 AM) + + + | Specimen | Performing Laboratory | + + + | | [facility] US | + + + + + [...] Note | + + | 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, payworks In Interface - 09/24/2017 4:09 PM PDT [...] | + + + | Blood | [facility], CORE [address] [facility] | | | [place] [address] | + + + + + | [...] | >60 | >60 mL/min | | [place] | | | + + + + | EGFR NON | >60 | >60 mL/min | | -[place] | | | + + + + [...] | + + + | Blood | [facility], CORE [address] [place] [address] | | | [place] [address] | + + + + + | [...] | + + + | Blood | [facility], CORE [address] [facility] | | | [place] [address] | + + + + + | [...] | | ------ CBC (HEMOGRAM) | | ONLY[[id number]] Abnormal Final | | result Please view [...] | + + + | Blood | [facility], CORE [address] [facility] | | | [place] [address] | + + + + + | [...] | + + + | Blood | [facility], CORE [address] [facility] | | | [place] [address] | + + + + + | [...] | | ------ CBC (HEMOGRAM) | | ONLY[[id number]] Abnormal Final | | result Please view [...] | >60 | >60 mL/min | | [place] | | | + + + + | EGFR NON | >60 | >60 mL/min | | [place] | | | + + + + [...] | + + + | Blood | [facility], CORE [address] | | | [facility] [place] [address] | + + + + + | [...] + + + | | [facility] [place], POINT OF CARE TESTS [address] | | | [place] [address] | + + + CAPILLARY BLOOD GLUCOSE (NO CHG), POC (09/22/2017 1:29 PM) + +---------+ + | Component | Value | Ref Range | + +---------+ + | BLOOD GLUCOSE, POC | 113 (H) | 70 - 99 mg/dL | + +---------+ + + + + | Specimen | Performing Laboratory | + + + | | [facility] - [place] POINT OF [facility] TESTS [address] | | | [place] [address] | + + + CT HEAD WO [...] | + + + | Blood | [facility], [facility] [address] | | | [place] [address] | + + + 12 LEAD ECG [...] Laboratory | + + + | | [facility] [address] [place] [address] | | | [place] [address] | + + + CBC (HEMOGRAM) ONLY [...] | + + + | Blood | [facility], CORE [address] [place] [address] | | | [place] [address] | + + + + + | [...] | + + + | Blood | [facility], CORE [address] | | | [place] [address] | + + + + + | Narrative | + + | Reference range change effective 12/11/16. | + + CBC ONLY (09/22/2017 5:48 AM) + + + | Specimen | Performing Laboratory | + + + | Blood | | + + + + + | Narrative | + + | The following orders were created for panel order CBC ONLY. | | Procedure | | Abnormality Status | | --------- | | ------ CBC (HEMOGRAM) | | ONLY[[id number]] Abnormal Final | | result Please view [...] | >60 | >60 mL/min | | [place] | | | + + + + | EGFR NON | >60 | >60 mL/min | | [place] | | | + + + + [...] | + + + | Blood | [facility], CORE [address] [facility] | | | [facility] [place] [address] | + + + + + | [...] + + + | | [facility] POINT OF [facility] TESTS [address] | | | [place] [address] | + + + CT HEAD WO CONTRAST (09/21/2017 9:53 PM) + + + | Specimen | Performing Laboratory | + + + | | [facility] VOICE RECOGNITION 2 | + + [...] | + + + | Blood | [facility], CORE [address] [facility] | | | [place] [address] | + + + + + | [...] | + + + | Blood | [facility], CORE [address] [facility] | | | [place] [address] | + + + + + | [...] | | ------ CBC (HEMOGRAM) | | ONLY[[id number]] Abnormal Final | | result Please view [...] | >60 | >60 mL/min | | [place] | | | + + + + | EGFR NON | >60 | >60 mL/min | | [place] | | | + + + + [...] | + + + | Blood | [facility], CORE [address] [facility] | | | [place] [address] | + + + + + | [...] Laboratory | + + + | | [facility] VOICE RECOGNITION 2 | + + [...] Adal, Radiant Res In Interface - 09/20/2017 6:25 [...] Laboratory | + + + | | [facility] VOICE RECOGNITION 2 | + + [...] Note | + + | 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, Healarium Res In Interface - 09/20/2017 6:26 PM [...] Laboratory | + + + | | [facility] VOICE RECOGNITION 2 | + + [...] MD 09/20/2017 5:16 PM Preliminary: | | Eris Cates MD 09/20/2017 1:12 PM | + + + + | Procedure Note | + + | 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, Healarium Res In Interface - 09/20/2017 5:17 PM [...] Sanchez, | | 09/20/2017 5:16 PM Preliminary: Eris Cates MD 09/20/2017 1:12 PM | |FINDINGS/IMPRESSION: | | | |Tip of Dobbhoff tube is located in the distal stomach at the gastric antrum. Left-sided PIC C line with tip at the cavoatrial junction. Bilateral rib fractures again noted. | | | |I have personally reviewed the images and, if necessary, edited the report. I agree with katalina cleary report as now presented. | | | |Final signature: Mason Sanchez MD 09/20/2017 5:16 PM | |Preliminary: Eris Cates MD 09/20/2017 1:12 PM | + [...] | ECG IMPRESSION | Electronically signed by: RENO VIZCAINO | | | | 09-20-2017 18:31:42 | | + + + + + + + | Specimen | Performing Laboratory | + + + | | [facility] [address] [place] [address] | | | [place] [address] | + + + CBC (HEMOGRAM) ONLY [...] | + + + | Blood | [facility], CORE [address] [place] [address] | | | [place] [address] | + + + + + | [...] | + + + | Blood | [facility], CORE [address] [facility] | | | [place] [address] | + + + + + | [...] | | ------ CBC (HEMOGRAM) | | ONLY[[id number]] Abnormal Final | | result Please view [...] | >60 | >60 mL/min | | [place] | | | + + + + | EGFR NON | >60 | >60 mL/min | | [place] | | | + + + + [...] | + + + | Blood | [facility], [address] | | | [place] [address] | + + + + + | [...] | + + + | Blood | [facility], CORE [address] | | | [place] [address] | + + + + + | [...] | + + + | Blood | [facility], CORE [address] | | | [place] [address] | + + + + + | [...] | | ------ CBC (HEMOGRAM) | | ONLY[[id number]] Abnormal Final | | result Please view [...] | >60 | >60 mL/min | | [place] | | | + + + + | EGFR NON | >60 | >60 mL/min | | [place] | | | + + + + [...] | + + + | Blood | [facility], CORE [facility] | | | [place] [address] | + + + + + | [...] | + + + | Blood | [facility], CORE [address] [facility] | | | [place] [address] | + + + + + | [...] | + + + | Blood | [facility], CORE [address] | | | [place] [address] | + + + + + | [...] | | ------ CBC (HEMOGRAM) | | ONLY[[id number]] Abnormal Final | | result Please view [...] | >60 | >60 mL/min | | [place] | | | + + + + | EGFR NON | >60 | >60 mL/min | | [place] | | | + + + + [...] | + + + | Blood | [facility], CORE [address] | | | [place] [address] | + + + + + | [...] Note | + + | 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, payworks In Interface - 09/17/2017 11:53 AM PDT [...] | + + + | Blood | [facility], CORE [address] | | | [place], [place] [address] | + + + + + | [...] | + + + | Blood | [facility], CORE [address] [place] [address] | | | [place] [address] | + + + + + | [...] | | ------ CBC (HEMOGRAM) | | ONLY[[id number]] Abnormal Final | | result Please view [...] | >60 | >60 mL/min | | [place] | | | + + + + | EGFR NON | >60 | >60 mL/min | | [place] | | | + + + + [...] | + + + | Blood | [facility], CORE [address] [facility] | | | [place] [address] | + + + + + | [...] Laboratory | + + + | | [facility] VOICE RECOGNITION | + + + + + | Narrative | + + | EXAM: CT CHEST PICC LINE CHECK HISTORY: PICC placement [...] Interface - 09/16/2017 1:34 PM PDT EXAM: CT CHEST | | PICC LINE CHECK HISTORY: [...] Laboratory | + + + | | [facility] VOICE RECOGNITION | + + + + + | Narrative | + + | EXAM: CT CHEST PICC LINE CHECK HISTORY: Evaluate PICC [...] Note | + + | 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, payworks In Interface - 09/16/2017 11:41 AM PDT EXAM: CT CHEST | | PICC LINE CHECK HISTORY: [...] | + + + | Blood | [facility], [facility] [address] | | | [place] [address] | + + + + + | [...] | + + + | Blood | [facility], CORE [address] [facility] | | | [place], [place] [address] | + + + + + | [...] | | ------ CBC (HEMOGRAM) | | ONLY[[id number]] Abnormal Final | | result Please view [...] | >60 | >60 mL/min | | [place] | | | + + + + | EGFR NON | >60 | >60 mL/min | | [place] | | | + + + + [...] | + + + | Blood | [facility], CORE [address] | | | [place] [address] | + + + + + | [...] Laboratory | + + + | | [facility] RADI[facility] VOICE RECOGNITION | + + + + + | Narrative | + + | EXAM: CT CHEST 1 VIEW HISTORY: COMPARISON: None. FINDINGS: [...] Interface - 09/15/2017 6:45 PM PDT EXAM: CT CHEST 1 | | VIEW HISTORY: COMPARISON: [...] Laboratory | + + + | | [facility] RAD[facility] VOICE RECOGNITION | + + + + + | Narrative | + + | EXAM: CT CHEST PICC LINE CHECK HISTORY: PICC COMPARISON: [...] Interface - 09/15/2017 6:43 PM PDT EXAM: CT CHEST | | PICC LINE CHECK HISTORY: [...] + | Narrative | + + | Jory Stone RN 09/16/2017 3:42 PM PICC LINE Performed by: | | JORY STONE Authorized by: CHAZ MUNOZ PICC/Midline Insertion | | Procedure Note Indications:TPN Procedure location: Unit:[facility] Room: 12 Providers: | | Attending name: Attending physically present: No PICC Nurse name: Jory Kern | | Jarad RN,BSN,VAT Assisted by Kamini dorantes RN,VAT Pre-Procedure Consent: | | written consent obtained Consent given by: Patient Patient identity confirmed per | | protocol: Yes Team Pause: Immediatly prior to the procedure a pause per protocol was | | called. A pause verifies correct patient, procedure, equipment, product support representative and | | site/side marked as required. [...] Arm area Basilic vein. Catheter lot number: [id number] with a length of 55 cm | [...] Laboratory | + + + | | [facility] RAD[facility] VOICE RECOGNITION | + + + [...] Note | + + | 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, [facility] Res In Interface - 09/15/2017 2:13 PM [...] | + + + | Blood | [facility], [facility] [place] [address] | | | [place] [address] | + + + + + | [...] | + + + | Blood | [facility], [address] [facility] | | | [facility] [address] | + + + + + | [...] | | ------ CBC (HEMOGRAM) | | ONLY[[id number]] Abnormal Final | | result Please view [...] | >60 | >60 mL/min | | [place] | | | + + + + | EGFR NON | >60 | >60 mL/min | | -[place] | | | + + + + [...] | + + + | Blood | [facility], [address] [facility] | | | [place] [address] | + + + + + | [...] Laboratory | + + + | | [facility] RADIOLOG[facility] VOICE RECOGNITION | + + + [...] Service Adal, Radiant Res In Interface - 09/14/2017 7:23 [...] | + + + | Blood | [facility], [address] [place] [address] | | | [place] [address] | + + + + + | [...] | + + + | Blood | [facility], CORE [address] [facility] | | | [place] [address] | + + + + + | [...] | | ------ CBC (HEMOGRAM) | | ONLY[[id number]] Abnormal Final | | result Please view [...] | >60 | >60 mL/min | | [place] | | | + + + + | EGFR NON | >60 | >60 mL/min | | [place] | | | + + + + [...] | + + + | Blood | [facility], CORE [address] [facility] | | | [place] [address] | + + + + + | [...] | + + + | Blood | [facility], CORE [address] [facility] | | | [place] [address] | + + + + + | [...] | + + + | Blood | [facility], CORE [address] [facility] | | | [place] [address] | + + + + + | [...] | | ------ CBC (HEMOGRAM) | | ONLY[[id number]] Abnormal Final | | result Please view [...] | >60 | >60 mL/min | | [place] | | | + + + + | EGFR NON | >60 | >60 mL/min | | [place] | | | + + + + [...] | + + + | Blood | [facility], CORE [address] [facility] | | | [place] [address] | + + + + + | [...] | + + + | Blood | [facility], CORE [address] | | | [place] [address] | + + + + + | [...] | + + + | Blood | [facility], CORE [address] [place] [address] | | | [place] [address] | + + + + + | [...] | | ------ CBC (HEMOGRAM) | | ONLY[[id number]] Abnormal Final | | result Please view [...] | >60 | >60 mL/min | | [place] | | | + + + + | EGFR NON | >60 | >60 mL/min | | [place] | | | + + + + [...] | + + + | Blood | [facility], CORE [address] [facility] | | | [place] [address] | + + + + + | [...] Laboratory | + + + | | [facility] VOICE RECOGNITION | + + + [...] | + + + | Blood | [facility], CORE [address] [facility] | | | [place] [address] | + + + + + | [...] | + + + | Blood | [facility], [facility] [address] | | | [place] [address] | + + + + + | [...] | | ------ CBC (HEMOGRAM) | | ONLY[[id number]] Abnormal Final | | result Please view [...] | >60 | >60 mL/min | | [place] | | | + + + + | EGFR NON | >60 | >60 mL/min | | [place] | | | + + + + [...] | + + + | Blood | [facility], CORE [address] [facility] | | | [place] [address] | + + + + + | [...] | + + + | Blood | [facility], CORE [address] | | | [place] [address] | + + + X-RAY ABD LTD FEEDING TUBE EVAL (09/10/2017 12:44 PM) + + + | Specimen | Performing Laboratory | + + + | | [facility] VOICE RECOGNITION 2 | + + [...] Note | + + | 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, Healarium Res In Interface - 09/10/2017 2:31 PM [...] Laboratory | + + + | | [facility] VOICE RECOGNITION | + + + + + | Narrative | + + | STUDY: CT CHEST 1 VIEW 09/10/17 07:02:01 HISTORY: Possible [...] Interface - 09/10/2017 9:25 AM PDT STUDY: CT CHEST 1 | | VIEW 09/10/17 07:02:01 [...] | + + + | Blood | [facility], CORE [address] [facility] | | | [place] [address] | + + + AMYLASE, PLASMA (09/10/2017 5:08 AM) + +-------+ + | Component | Value | Ref Range | + +-------+ + | AMYLASE,PLASMA | 58 | 25 - 115 U/L | + +-------+ + + + + | Specimen | Performing Laboratory | + + + | Blood | [facility], CORE [address] | | | [place] [address] | + + + CBC (HEMOGRAM) ONLY [...] | + + + | Blood | [facility], CORE [address] [facility] | | | [place] [address] | + + + + + | [...] | + + + | Blood | [facility], CORE [address] | | | [place] [address] | + + + + + | Narrative | + + | Reference range change effective 12/11/16. | + + CBC ONLY (09/10/2017 5:08 AM) + + + | Specimen | Performing Laboratory | + + + | Blood | | + + + + + | Narrative | + + | The following orders were created for panel order CBC ONLY. | | Procedure | | Abnormality Status | | --------- | | ------ CBC (HEMOGRAM) | | ONLY[[id number]] Abnormal Final | | result Please view [...] | >60 | >60 mL/min | | [place] | | | + + + + | EGFR NON | >60 | >60 mL/min | | [place] | | | + + + + [...] | + + + | Blood | [facility], CORE [address] [place] [address] | | | [place] [address] | + + + + + | [...] | ECG IMPRESSION | Electronically signed by: RENO VIZCAINO | | | | 09-10-2017 07:45:43 | | + + + + + + + | Specimen | Performing Laboratory | + + + | | [facility] [address] [place] [address] | | | [place] [address] | + + + X-RAY ABD LTD FEEDING TUBE EVAL PORTABLE (09/09/2017 10:15 PM) + + + | Specimen | Performing Laboratory | + + + | | [facility] VOICE RECOGNITION 2 | + + [...] Note | + + | 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, payworks In Interface - 09/10/2017 11:11 AM PDT [...] + + + | | [facility], POINT OF CARE TESTS [address] | | | [place] [address] | + + + MAGNESIUM, PLASMA (09/09/2017 3:50 AM) + +-------+ + | Component | Value | Ref Range | + +-------+ + | MAGNESIUM,PLASMA | 2.0 | 1.6 - 2.6 mg/dL | + +-------+ + + + + | Specimen | Performing Laboratory | + + + | Blood | [facility], CORE [address] | | | [place] [address] | + + + + + | [...] | + + + | Blood | [facility], CORE [address] | | | [place] [address] | + + + + + | [...] | | ------ CBC (HEMOGRAM) | | ONLY[[id number]] Abnormal Final | | result Please view [...] | >60 | >60 mL/min | | [place] | | | + + + + | EGFR NON | >60 | >60 mL/min | | [place] | | | + + + + [...] | + + + | Blood | [facility], CORE [address] [facility] | | | [place] [address] | + + + + + | [...] | + + + | Blood | [facility], CORE [address] | | | [place] [address] | + + + + + | [...] | >60 | >60 mL/min | | [place] | | | + + + + | EGFR NON | >60 | >60 mL/min | | [place] | | | + + + + [...] | + + + | Blood | [facility], CORE [address] [facility] | | | [place] [address] | + + + + + | [...] | | ------ CBC (HEMOGRAM) | | ONLY[[id number]] Abnormal Final | | result Please view [...] | + + + | Blood | [facility], CORE [address] [place] [address] | | | [place] [address] | + + + LIVER SET (AST,ALT,BILI [...] | + + + | Blood | [facility], CORE [address] [facility] | | | [place] [address] | + + + X-RAY ABD LTD FEEDING TUBE EVAL (09/08/2017 4:38 AM) + + + | Specimen | Performing Laboratory | + + + | | [facility] VOICE RECOGNITION | + + + [...] Laboratory | + + + | | [facility] [address] [place] [address] | | | [place] [address] | + + + X-RAY PORTABLE CHEST 1 VIEW (09/07/2017 6:12 AM) + + + | Specimen | Performing Laboratory | + + + | | [facility] VOICE RECOGNITION | + + + + + | Narrative | + + | EXAM: CT CHEST 1 VIEW HISTORY: Post extubation COMPARISON: 09/05/17 | | FINDINGS: Interval extubation. Enteric tube has been replaced with weighted tip | | Dobb[place], incompletely imaged. C. collar remains in place. [...] Interface - 09/07/2017 10:46 AM PDT EXAM: CT CHEST 1 | | VIEWHISTORY: Post extubationCOMPARISON: [...] | + + + | Blood | [facility], CORE [address] [facility] | | | [place] [address] | + + + + + | [...] | >60 | >60 mL/min | | [place] | | | + + + + | EGFR NON | >60 | >60 mL/min | | [place] | | | + + + + [...] | + + + | Blood | [facility], CORE [address] [facility] | | | [place] [address] | + + + + + | [...] | + + + | Blood | [facility], [facility] [address] [place] [address] | | | [place] [address] | + + + + + | [...] | | ------ CBC (HEMOGRAM) | | ONLY[[id number]] Abnormal Final | | result Please view [...] Note | + + | 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, Healarium Res In Interface - 09/07/2017 10:46 AM [...] Laboratory | + + + | | [facility] VOICE RECOGNITION | + + + + + | Narrative | + + | EXAM: ABD LTD FEEDING TUBE EVAL 09/06/17 18:14:00 COMPARISON: None | | FINDINGS: [...] | ECG IMPRESSION | Electronically signed by: RENO VIZCAINO | | | | 09-09-2017 21:14:04 | | + + + + + + + | Specimen | Performing Laboratory | + + + | | [facility] CARDIOLOG[facility] [address] [place] [address] | | | [place] [address] | + + + PROCEDURE NOTE (09/06/2017 [...] on the 1st attempt. Midline lot number [id number]; there was positive blood | | return. [...] | >60 | >60 mL/min | | [place] | | | + + + + | EGFR NON | >60 | >60 mL/min | | [place] | | | + + + + [...] | + + + | Blood | [facility], CORE [address] [facility] | | | [place] [address] | + + + + + | [...] | + + + | Blood | [facility], CORE [address] | | | [place] [address] | + + + + + | [...] Narrative | + + | EXAM: CT CHEST 1 VIEW HISTORY: Evaluation after chest [...] Note | + + | 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, payworks In Interface - 09/05/2017 10:16 AM PDT EXAM: CT CHEST 1 | | VIEW HISTORY: Evaluation [...] | + + + | Blood | [facility], CORE [address] [facility] | | | [place] [address] | + + + MAGNESIUM, PLASMA (09/05/2017 3:54 AM) + +-------+ + | Component | Value | Ref Range | + +-------+ + | MAGNESIUM,PLASMA | 1.8 | 1.6 - 2.6 mg/dL | + +-------+ + + + + | Specimen | Performing Laboratory | + + + | Blood | [facility], CORE [address] [facility] | | | [place] [address] | + + + + + | [...] | | ------ CBC (HEMOGRAM) | | ONLY[[id number]] Abnormal Final | | result Please view [...] | >60 | >60 mL/min | | [place] | | | + + + + | EGFR NON | >60 | >60 mL/min | | [place] | | | + + + + [...] | + + + | Blood | [facility], CORE [address] [facility] | | | [place] [address] | + + + + + | [...] | >60 | >60 mL/min | | [place] | | | + + + + | EGFR NON | >60 | >60 mL/min | | [place] | | | + + + + [...] | + + + | Blood | [facility], [facility] [address] | | | [place] [address] | + + + + + | [...] Note: Chest Tube Removal | | Name: Artemio Temple 09/04/2017 Time: 2:05 PM Performed By: [...] tomorrow morning. CB Henson Pager / ID: [phone] | + + CULTURE, SPUTUM (09/04/2017 1:17 PM) + + + | Specimen | Performing Laboratory | + + + | Sputum - | [facility] [address] [place], [place] | | Endotracheal tube | [id number] | | tip | | + + [...] + | Urine - Catheter - | [facility], CORE [address] | | indwelling | [place] [address] | + + + TITO COLE (09/04/2017 1:17 PM) + + + + [...] + | SPECIFIC GRAVITY | 1.011Comment: Specific [place] performed by | 1.005 - 1.030 | | | refractometry | | + + + + + + + | Specimen | Performing Laboratory | + + + | Urine - Catheter - | [facility], CORE [facility] | | indwelling | [place] [address] | + + + CULTURE, BLOOD BACTI [...] + + | Blood - Arterial | [facility], CORE [address] | | line | [facility] [address] | + + + CULTURE, BLOOD BACTI & YEAST [facility] (09/04/2017 1:16 PM) + + + + | Component | Value | Ref Range | + + + + | CULTURE RESULT | Final Report:No Bacteria or Yeast isolated | | | | at 5 days. | | + + + + + + + | Specimen | Performing Laboratory | + + + | Blood - Peripheral | [facility], CORE [address] [facility] | | | [place] [address] | + + + CULTURE, BLOOD BACTI [...] ------ CULTURE, BLOOD | | BACTI & Y...[[id number]] Final | | result Please view results [...] ------ CULTURE, BLOOD | | BACTI & Y...[[id number]] Final | | result Please view results [...] | | [facility] [address] [facility] | | | [place] [address] | + + + X-RAY PORTABLE CHEST 1 VIEW (09/04/2017 7:04 AM) + + + | Specimen | Performing Laboratory | + + + | | [facility] VOICE RECOGNITION | + + + + + | Narrative | + + | EXAM: CT CHEST 1 VIEW HISTORY: Hypoxia. Intubated. COMPARISON: [...] Interface - 09/04/2017 9:49 AM PDT EXAM: CT CHEST 1 | | VIEW HISTORY: Hypoxia. [...] | + + + | Blood | [facility], CORE [address] [place] [address] | | | [place] [address] | + + + CBC (HEMOGRAM) ONLY [...] | + + + | Blood | [facility], CORE [address] [facility] | | | [place], [place] [address] | + + + RENAL FUNCTION SET [...] | >60 | >60 mL/min | | [place] | | | + + + + | EGFR NON | >60 | >60 mL/min | | [place] | | | + + + + [...] | + + + | Blood | [facility], CORE [address] [facility] | | | [place] [address] | + + + + + | [...] | + + + | Blood | [facility], CORE [address] | | | [place] [address] | + + + + + | [...] | | ------ CBC (HEMOGRAM) | | ONLY[[id number]] Abnormal Final | | result Please view [...] + + + | | [facility], POINT OF CARE TESTS [address] | | | [facility] [place] [address] | + + + CAPILLARY BLOOD GLUCOSE (NO CHG), POC (09/04/2017 12:17 AM) + +-------+ + | Component | Value | Ref Range | + +-------+ + | BLOOD GLUCOSE, POC | 72 | 70 - 99 mg/dL | + +-------+ + + + + | Specimen | Performing Laboratory | + + + | | [facility] [employer], POINT OF CARE TESTS [address] | | | [place] [address] | + + + CAPILLARY BLOOD GLUCOSE [...] [facility] POINT OF CARE TESTS [address] | | | [place] [address] | + + + CAPILLARY BLOOD GLUCOSE [...] [facility], POINT OF CARE TESTS [address] | | | [place] [address] | + + + [facility] VENOUS DUPLEX LOWER EXTREMITY BILAT COMP (09/03/2017 9:51 AM) + + + | Specimen | Performing Laboratory | + + + | | [facility] | + + + + [...] Note | + + | 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, Healarium Res In Interface - 09/03/2017 10:27 AM [...] + + + | Sputum - | [facility] [address] [place], [place] | | Expectorated | [phone] | + + + + + | [...] | + + + | Blood | [facility], CORE [address] [facility] | | | [place] [address] | + + + X-RAY ABD LTD FEEDING TUBE EVAL (09/03/2017 4:32 AM) + + + | Specimen | Performing Laboratory | + + + | | [facility] VOICE RECOGNITION | + + + [...] + + + | Sputum - | [facility] [address] [place], [place] | | Expectorated | [id number] | + + + + + | [...] | + + + | Blood | [facility], CORE [address] [facility] | | | [place] [address] | + + + CBC (HEMOGRAM) ONLY [...] | + + + | Blood | [facility], CORE [address] [facility] | | | [place] [address] | + + + RENAL FUNCTION SET [...] | >60 | >60 mL/min | | [place] | | | + + + + | EGFR NON | >60 | >60 mL/min | | [place] | | | + + + + [...] | + + + | Blood | [facility], [facility] [address] | | | [place] [address] | + + + + + | [...] | + + + | Blood | [facility], CORE [address] | | | [place] [address] | + + + + + | [...] | | ------ CBC (HEMOGRAM) | | ONLY[[id number]] Abnormal Final | | result Please view results for these tests on the | | individual orders. | + + OPERATION RECORD (09/02/2017 6:53 PM) + + | Procedure Note | + + | Fidelina Shields MD - 09/02/2017 6:53 PM PDT Date of Service: 09/02/2017 | | Attending Surgeon: Fidelina Shields MD Rn Telephone Triage(s): | | Ajay Garcia MD, resident. Preoperative [...] was transferred to the ICU in stable condition.Aajy Garica, | | MDMashona Shields MDTBK/MODLDD: 09/02/2017 18:15:29DT: 09/02/2017 18:53:52Job #: | | [id number] to federal Medicare and Medicaid regulations I was present for | | the entire procedure.Fidelina Shields MDAssistanbrice ProfessorDepartment of SurgeryOffice: | | [phone]: [phone] has been electronically signed by Fidelina Shields MD, | | 09/03/2017 at 9:11 AM. | | | | | |Fidelina Shields MD | |Online Advertising Analyst | |Department of Surgery | |Office: [phone] | |Pager: [phone] | | | |This has been electronically [...] | + + + | Blood | [facility], CORE [address] [place] [address] | | | [place], [place] [address] | + + + BLOOD GASES, ARTERIAL [...] | + + + | Blood | [facility], CORE [address] [facility] | | | [place] [address] | + + + CULTURE, AFB (ALL SPEC TYPES EXCEPT BLOOD) (09/02/2017 5:10 PM) + + + | Specimen | Performing Laboratory | + + + | Sputum - | [facility] [address] [place] [address] | | Expectorated | [id number] | + + + + + | [...] | + + + | Blood | [facility], [facility] [address] | | | [place] [address] | + + + + + | [...] | >60 | >60 mL/min | | [place] | | | + + + + | EGFR NON | >60 | >60 mL/min | | -[place] | | | + + + + [...] | + + + | Blood | [facility], CORE [address] [facility] | | | [place] [address] | + + + + + | [...] Note | + + | 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, Healarium Res In Interface - 09/02/2017 4:25 PM [...] INGRID Zhang | | Yolanda Garcia Surgery [id number] Pursuant to federal Medicare and Medicaid regulations I | | was present for the entire procedure. Fidelina Shields MD Rn Telephone Triage | | Professor Department of Surgery Office: [phone] Pager: [phone] This has been | | electronically signed [...] | + + + | Blood | [facility], CORE [address] [facility] | | | [place] [address] | + + + INR (09/02/2017 9:39 AM) + + + + | Component | Value | Ref Range | + + + + | INR | 1.26 (H) | 0.90 - 1.20 INR | + + + + + + + | Specimen | Performing Laboratory | + + + | Blood | [facility], CORE [address] | | | [place] [address] | + + + + + | [...] | | Attending Surgeon: Fidelina Shields MD Rn Telephone Triage(s): Haim Peralta MD. | | Ajay Garcia MD. Preoperative Diagnosis: | | Hemorrhagic shock.Postoperative Diagnosis: Hemorrhagic shock.Procedures Performed: 1. | | Exploratory laparotomy.2. Mobilization of the sigmoid colon.3. 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 Control of splenic hemorrhage5. Placement of DME wound | | VAC.Indications: Artemio Temple is a 67-year-old male who was [...] 09/02/2017 06:17:53DT: 09/02/2017 | | 06:51:37Job #: [id number] to federal Medicare and Medicaid regulations I | | was present for the entire procedure.Fidelina Tenorio ProfessorDepartment of | | SurgeryOffice: [phone]: [phone] has been electronically signed by Fidelina Shields MD, 09/02/2017 at 10:40 AM. | | | | | |Pursuant to federal Medicare and Medicaid regulations I was present for the entire procedur e. | | | | | | | |Fidelina Shields MD | |Online Advertising Analyst | |Department of Surgery | |Office: [phone] | |Pager: [phone] | | | |This has been electronically [...] | + + + | Blood | [facility], CORE [address] [facility] | | | [place] [address] | + + + HEMATOCRIT (09/02/2017 5:16 AM) + + + + | Component | Value | Ref Range | + + + + | HEMATOCRIT | 34.0 (L) | 41.0 - 53.0 % | + + + + + + + | Specimen | Performing Laboratory | + + + | Blood | [facility], CORE [address] [facility] | | | [place], [place] [address] | + + + PRODUCT - RED CELLS LEUKOREDUCED (09/02/2017 2:53 AM) + + + + | Component | Value | Ref Range | + + + + | PRODUCT DESCRIPTION | -1 RED BLOOD CELL ADENINE-SALINE ADDED | | | | LEUKOCYTE | | + + + + | PRODUCT UNIT # | [id number] | | + + + + | UNIT ABO | O | | + + + + | UNIT RH | POS | | + + + + | STATUS OF UNIT | Presumed Transfused | | + + + + | EXPIRATION DATE | [id number] | | + + + + | BLOOD TYPE BARCODE | 5100 | | + + + + | BLOOD PRODUCT CODE | [id number] | | + + + + + + + | Specimen | Performing Laboratory | + + + | | [facility], TRANSFUSION MEDICINE [address] | | | [place] [address] | + + + CT PELVIS WO IV CONTRAST (09/02/2017 1:45 AM) + + + | Specimen | Performing Laboratory | + + + | | [facility] VOICE RECOGNITION | + + + [...] | + + + | Blood | [facility], CORE [address] [place] [address] | | | [place] [address] | + + + RENAL FUNCTION SET [...] | >60 | >60 mL/min | | [place] | | | + + + + | EGFR NON | >60 | >60 mL/min | | -[place] | | | + + + + [...] | + + + | Blood | [facility], CORE [address] [facility] | | | [place], [place] [address] | + + + + + | [...] | + + + | Blood | [facility], C[address] | | | [place] [address] | + + + + + | [...] | | ------ CBC (HEMOGRAM) | | ONLY[[id number]] Abnormal Final | | result Please view [...] | | | Infection --- [place], 2010 | | | | (http://www.cdc.gov/mmwr/preview/mmwrhtml/r | | | | [id number].htm), for information concerning | | | | test performance in low-prevalence | | | | populations and use in occupational | | | | screening. | | + + + + | NIL | 0.05Comment: Performed by [facility] | IU/mL | | | Laboratories, | | | | [address], | | | | [place] [address] | | | | [phone] | | | | [email or web address], Gui Ervin MD - | | | | Lab. Director | | + + + + | TB AG-NIL | 0.26 | 0.00 - 0.34 IU/mL | + + + + | MITOGEN-NIL | 9.35 | IU/mL | + + + + + + + | Specimen | Performing Laboratory | + + + | Blood | [facility] [address] [place], [place] | | | [address] | + + + LACTATE (09/01/2017 8:18 PM) + +-------+ + | Component | Value | Ref Range | + +-------+ + | LACTATE | 1.6 | mmol/L | + +-------+ + + + + | Specimen | Performing Laboratory | + + + | Blood | [facility], [address]ORE [address] | | | [place] [address] | + + + + + | [...] | + + + | Blood | [facility], [address] [address] | | | [place] [address] | + + + X-RAY KNEE 2 VIEWS LEFT (09/01/2017 7:48 PM) + + + | Specimen | Performing Laboratory | + + + | | [facility] VOICE RECOGNITION | + + + [...] Note | + + | 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, [facility] In Interface - 09/02/2017 8:55 AM [...] Narrative | + + | EXAM: CT CHEST 1 VIEW HISTORY: Hypoxemia COMPARISON: 09/01/17 [...] Interface - 09/02/2017 10:34 AM PDT EXAM: CT CHEST 1 | | VIEW HISTORY: HypoxemiaCOMPARISON: [...] | + + + | Blood | [facility], CORE [address] [facility] | | | [place] [address] | + + + HEMATOCRIT (09/01/2017 5:43 PM) + + + + | Component | Value | Ref Range | + + + + | HEMATOCRIT | 34.1 (L) | 41.0 - 53.0 % | + + + + + + + | Specimen | Performing Laboratory | + + + | Blood | [facility], CORE [address] | | | [place] [address] | + + + PRODUCT - PLATELET PHERESIS LEUKOREDUCED (09/01/2017 4:42 PM) + + + + | Component | Value | Ref Range | + + + + | PRODUCT DESCRIPTION | PLATELETS PHERESIS LEUKOCYTE REDUCED | | + + + + | PRODUCT UNIT # | [id number] | | + + + + | UNIT ABO | O | | + + + + | UNIT RH | POS | | + + + + | STATUS OF UNIT | Presumed Transfused | | + + + + | EXPIRATION DATE | [id number] | | + + + + | BLOOD TYPE BARCODE | | | + + + + | BLOOD PRODUCT CODE | [id number] | | + + + + + + + | Specimen | Performing Laboratory | + + + | | [facility], TRANSFUSION MEDICINE [address] [place] [address] | | | [place] [address] | + + + BLOOD GASES, ARTERIAL [...] | + + + | Blood | [facility], CORE [address] | | | [place] [address] | + + + LACTATE (09/01/2017 4:19 PM) + +-------+ + | Component | Value | Ref Range | + +-------+ + | LACTATE | 1.6 | mmol/L | + +-------+ + + + + | Specimen | Performing Laboratory | + + + | Blood | [facility], CORE [address] [address] | | | [place] [address] | + + + + + | [...] | + + + | Blood | [facility], CORE [address] [facility] | | | [place] [address] | + + + COMPLETE METABOLIC SET [...] | >60 | >60 mL/min | | [place] | | | + + + + | EGFR NON | >60 | >60 mL/min | | [place] | | | + + + + [...] | | + + + + | JULIENI T CMNT | No Hemo | | + + + + | AST CMNT | No Hemo | | + + + + + + + | Specimen | Performing Laboratory | + + + | Blood | [facility], [place] [address] | | | [place] [address] | + + + + + | [...] | | ------ CBC (HEMOGRAM) | | ONLY[[id number]] Abnormal Final | | result Please view [...] | + + + | Blood | [facility], CORE [address] | | | [place] [address] | + + + + + | [...] | + + + | Blood | [facility], CORE [address] [facility] | | | [place] [address] | + + + + + | Narrative | + + | Cap came off in bag before received. Sample rejected due to air contamination. | | Crediting patient. | + + IR EMBOLIZATION OTHER (09/01/2017 2:06 PM) + + + | Specimen | Performing Laboratory | + + + | | [facility] VOICE RECOGNITION | + + + [...] micropuncture access set was exchanged for a [employer]uNet | | wire. Under fluoroscopic guidance, a 5 Fr flush catheter was used to evaluate the | | distal abdominal aorta and pelvic vasculature. A wire and catheter were then used to | | select the left common and internal iliac arteries from the right MANAGER RN approach. DSA | | was performed from [...] | | iliac arteries from the right MANAGER RN approach. DSA was performed from the left [...] and internal iliac arteries from the right MANAGER RN approach. DSA was performed from the left [...] + + + | Blood | [facility], POINT OF CARE TESTS [address] | | | [place] [address] | + + + EXPLORATORY LAPAROTOMY (09/01/2017 12:31 PM) + + | Narrative | + + | Fidelina Shields MD 09/01/2017 12:42 PM BRIEF OPERATIVE NOTE: | | Date: 09/01/2017 Author: Fidelina Shields MD Attending Physician: | | Fidelina Shields MD Rn Telephone Triage(s): Haim Peralta MD, Vicente Garcia MD, Glo | | PatitoNoé MS3 Prior to the beginning of the [...] the case. | | Fidelina Shields MD Online Ad[employer] Analyst Division of Trauma, Critical Care and | | Acute Care Surgery Office: [phone] Pager: [phone] | + + ABG-FULL ABL, POC (09/01/2017 [...] | + + + | Blood | [facility] [address] | | | [place] [address] | + + + CREATININE, BODY FLUID (09/01/2017 11:52 AM) + +-------+ + | Component | Value | Ref Range | + +-------+ + | CREATININE BODY | 0.60 | mg/dL | | FLUID | | | + +-------+ + + + + | Specimen | Performing Laboratory | + + + | Fluid - Abdominal | [facility], CORE [address] | | | [place] [address] | + + + + + | [...] | + + + | Blood | [facility], POINT OF CARE TESTS [address] | | | [place] [address] | + + + PRODUCT - PLATELET PHERESIS LEUKOREDUCED (09/01/2017 9:56 AM) + + + + | Component | Value | Ref Range | + + + + | PRODUCT DESCRIPTION | PLATELETS PHERESIS LEUKOCYTES REDUCED | | + + + + | PRODUCT UNIT # | [id number] | | + + + + | UNIT ABO | A | | + + + + | UNIT RH | POS | | + + + + | STATUS OF UNIT | Returned to Blood Bank | | + + + + | EXPIRATION DATE | [id number] | | + + + + | BLOOD TYPE BARCODE | 6200 | | + + + + | BLOOD PRODUCT CODE | [id number] | | + + + + + + + | Specimen | Performing Laboratory | + + + | | [facility], TRANSFUSION MEDICINE [address] | | | [place] [address] | + + + PRODUCT - FRESH FROZEN PLASMA (09/01/2017 9:53 AM) + + + + | Component | Value | Ref Range | + + + + | PRODUCT DESCRIPTION | LIQUID PLASMA, IRRADIATED | | + + + + | PRODUCT UNIT # | [id number] | | + + + + | UNIT ABO | A | | + + + + | UNIT RH | POS | | + + + + | STATUS OF UNIT | Returned to Blood Bank | | + + + + | EXPIRATION DATE | [id number] | | + + + + | BLOOD TYPE BARCODE | 6200 | | + + + + | BLOOD PRODUCT CODE | [id number] | | + + + + + + + | Specimen | Performing Laboratory | + + + | | [facility], TRANSFUSION MEDICINE [address] | | | [place] [address] | + + + PRODUCT - FRESH FROZEN PLASMA (09/01/2017 9:53 AM) + + + + | Component | Value | Ref Range | + + + + | PRODUCT DESCRIPTION | LIQUID PLASMA, IRRADIATED | | + + + + | PRODUCT UNIT # | [id number] | | + + + + | UNIT ABO | A | | + + + + | UNIT RH | POS | | + + + + | STATUS OF UNIT | Returned to Blood Bank | | + + + + | EXPIRATION DATE | [id number] | | + + + + | BLOOD TYPE BARCODE | 6200 | | + + + + | BLOOD PRODUCT CODE | [id number] | | + + + + + + + | Specimen | Performing Laboratory | + + + | | [facility], TRANSFUSION MEDICINE [address] | | | [place] [address] | + + + PRODUCT - RED CELLS LEUKOREDUCED (09/01/2017 9:49 AM) + + + + | Component | Value | Ref Range | + + + + | PRODUCT DESCRIPTION | -3 RED BLOOD CELLS ADENINE-SALINE ADDED | | | | LEUKOCY | | + + + + | PRODUCT UNIT # | [id number] | | + + + + | UNIT ABO | O | | + + + + | UNIT RH | POS | | + + + + | STATUS OF UNIT | Returned to Blood Bank | | + + + + | EXPIRATION DATE | [id number] | | + + + + | BLOOD TYPE BARCODE | 5100 | | + + + + | BLOOD PRODUCT CODE | [id number] | | + + + + + + + | Specimen | Performing Laboratory | + + + | | [facility], TRANSFUSION MEDICINE [address] [facility] | | | [place] [address] | + + + PRODUCT - RED CELLS LEUKOREDUCED (09/01/2017 9:49 AM) + + + + | Component | Value | Ref Range | + + + + | PRODUCT DESCRIPTION | -3 RED BLOOD CELLS ADENINE-SALINE ADDED | | | | LEUKOCY | | + + + + | PRODUCT UNIT # | [id number] | | + + + + | UNIT ABO | O | | + + + + | UNIT RH | POS | | + + + + | STATUS OF UNIT | Returned to Blood Bank | | + + + + | EXPIRATION DATE | [id number] | | + + + + | BLOOD TYPE BARCODE | 5100 | | + + + + | BLOOD PRODUCT CODE | [id number] | | + + + + + + + | Specimen | Performing Laboratory | + + + | | [facility], TRANSFUSION MEDICINE [address] [facility] | | | [place] [address] | + + + PRODUCT - RED CELLS LEUKOREDUCED (09/01/2017 9:49 AM) + + + + | Component | Value | Ref Range | + + + + | PRODUCT DESCRIPTION | -1 RED BLOOD CELL ADENINE-SALINE ADDED | | | | LEUKOCYTE | | + + + + | PRODUCT UNIT # | [id number] | | + + + + | UNIT ABO | O | | + + + + | UNIT RH | POS | | + + + + | STATUS OF UNIT | Returned to Blood Bank | | + + + + | EXPIRATION DATE | [id number] | | + + + + | BLOOD TYPE BARCODE | 5100 | | + + + + | BLOOD PRODUCT CODE | [id number] | | + + + + + + + | Specimen | Performing Laboratory | + + + | | [facility], TRANSFUSION MEDICINE [address] [place] [address] | | | [place] [address] | + + + PRODUCT - RED CELLS LEUKOREDUCED (09/01/2017 9:49 AM) + + + + | Component | Value | Ref Range | + + + + | PRODUCT DESCRIPTION | -1 RED BLOOD CELL ADENINE-SALINE ADDED | | | | LEUKOCYTE | | + + + + | PRODUCT UNIT # | [id number] | | + + + + | UNIT ABO | O | | + + + + | UNIT RH | POS | | + + + + | STATUS OF UNIT | Returned to Blood Bank | | + + + + | EXPIRATION DATE | [id number] | | + + + + | BLOOD TYPE BARCODE | 5100 | | + + + + | BLOOD PRODUCT CODE | [id number] | | + + + + + + + | Specimen | Performing Laboratory | + + + | | [facility], TRANSFUSION MEDICINE [address] [facility] | | | [place] [address] | + + + PRODUCT - RED CELLS LEUKOREDUCED (09/01/2017 9:49 AM) + + + + | Component | Value | Ref Range | + + + + | PRODUCT DESCRIPTION | -1 RED BLOOD CELL ADENINE-SALINE ADDED | | | | LEUKOCYTE | | + + + + | PRODUCT UNIT # | [id number] | | + + + + | UNIT ABO | O | | + + + + | UNIT RH | POS | | + + + + | STATUS OF UNIT | Returned to Blood Bank | | + + + + | EXPIRATION DATE | [id number] | | + + + + | BLOOD TYPE BARCODE | 5100 | | + + + + | BLOOD PRODUCT CODE | [id number] | | + + + + + + + | Specimen | Performing Laboratory | + + + | | [facility], TRANSFUSION MEDICINE [address] [facility] | | | [place] [address] | + + + PRODUCT - RED CELLS LEUKOREDUCED (09/01/2017 9:49 AM) + + + + | Component | Value | Ref Range | + + + + | PRODUCT DESCRIPTION | -1 RED BLOOD CELL ADENINE-SALINE ADDED | | | | LEUKOCYTE | | + + + + | PRODUCT UNIT # | [id number] | | + + + + | UNIT ABO | O | | + + + + | UNIT RH | POS | | + + + + | STATUS OF UNIT | Returned to Blood Bank | | + + + + | EXPIRATION DATE | [id number] | | + + + + | BLOOD TYPE BARCODE | 5100 | | + + + + | BLOOD PRODUCT CODE | [id number] | | + + + + + + + | Specimen | Performing Laboratory | + + + | | [facility], TRANSFUSION MEDICINE [address] [place] [address] | | | [place] [address] | + + + PRODUCT - FRESH FROZEN PLASMA (09/01/2017 9:46 AM) + + + + | Component | Value | Ref Range | + + + + | PRODUCT DESCRIPTION | PLASMA THAWED | | + + + + | PRODUCT UNIT # | [id number] | | + + + + | UNIT ABO | B | | + + + + | UNIT RH | POS | | + + + + | STATUS OF UNIT | Returned to Blood Bank | | + + + + | EXPIRATION DATE | [id number] | | + + + + | BLOOD TYPE BARCODE | 7300 | | + + + + | BLOOD PRODUCT CODE | [id number] | | + + + + + + + | Specimen | Performing Laboratory | + + + | | [facility], TRANSFUSION MEDICINE [address] [facility] | | | [place] [address] | + + + PRODUCT - FRESH FROZEN PLASMA (09/01/2017 9:46 AM) + + + + | Component | Value | Ref Range | + + + + | PRODUCT DESCRIPTION | PLASMA THAWED | | + + + + | PRODUCT UNIT # | [id number] | | + + + + | UNIT ABO | B | | + + + + | UNIT RH | POS | | + + + + | STATUS OF UNIT | Returned to Blood Bank | | + + + + | EXPIRATION DATE | [id number] | | + + + + | BLOOD TYPE BARCODE | 7300 | | + + + + | BLOOD PRODUCT CODE | [id number] | | + + + + + + + | Specimen | Performing Laboratory | + + + | | [facility], TRANSFUSION MEDICINE [address] | | | [place] [address] | + + + PRODUCT - FRESH FROZEN PLASMA (09/01/2017 9:46 AM) + + + + | Component | Value | Ref Range | + + + + | PRODUCT DESCRIPTION | LIQUID PLASMA, IRRADIATED | | + + + + | PRODUCT UNIT # | [id number] | | + + + + | UNIT ABO | A | | + + + + | UNIT RH | POS | | + + + + | STATUS OF UNIT | Returned to Blood Bank | | + + + + | EXPIRATION DATE | [id number] | | + + + + | BLOOD TYPE BARCODE | 6200 | | + + + + | BLOOD PRODUCT CODE | [id number] | | + + + + + + + | Specimen | Performing Laboratory | + + + | | [facility], TRANSFUSION MEDICINE [address] | | | [place] [address] | + + + PRODUCT - FRESH FROZEN PLASMA (09/01/2017 9:46 AM) + + + + | Component | Value | Ref Range | + + + + | PRODUCT DESCRIPTION | LIQUID PLASMA, IRRADIATED | | + + + + | PRODUCT UNIT # | [id number] | | + + + + | UNIT ABO | A | | + + + + | UNIT RH | POS | | + + + + | STATUS OF UNIT | Returned to Blood Bank | | + + + + | EXPIRATION DATE | [id number] | | + + + + | BLOOD TYPE BARCODE | 6200 | | + + + + | BLOOD PRODUCT CODE | [id number] | | + + + + + + + | Specimen | Performing Laboratory | + + + | | [facility], TRANSFUSION MEDICINE [address] | | | [place] [address] | + + + PRODUCT - FRESH FROZEN PLASMA (09/01/2017 9:46 AM) + + + + | Component | Value | Ref Range | + + + + | PRODUCT DESCRIPTION | LIQUID PLASMA, IRRADIATED | | + + + + | PRODUCT UNIT # | [id number] | | + + + + | UNIT ABO | A | | + + + + | UNIT RH | POS | | + + + + | STATUS OF UNIT | Returned to Blood Bank | | + + + + | EXPIRATION DATE | [id number] | | + + + + | BLOOD TYPE BARCODE | 6200 | | + + + + | BLOOD PRODUCT CODE | [id number] | | + + + + + + + | Specimen | Performing Laboratory | + + + | | [facility], TRANSFUSION MEDICINE [address] | | | [place] [address] | + + + PRODUCT - FRESH FROZEN PLASMA (09/01/2017 9:46 AM) + + + + | Component | Value | Ref Range | + + + + | PRODUCT DESCRIPTION | LIQUID PLASMA, IRRADIATED | | + + + + | PRODUCT UNIT # | [id number] | | + + + + | UNIT ABO | A | | + + + + | UNIT RH | POS | | + + + + | STATUS OF UNIT | Returned to Blood Bank | | + + + + | EXPIRATION DATE | [id number] | | + + + + | BLOOD TYPE BARCODE | 6200 | | + + + + | BLOOD PRODUCT CODE | [id number] | | + + + + + + + | Specimen | Performing Laboratory | + + + | | [facility], TRANSFUSION MEDICINE [address] | | | [place] [address] | + + + PRODUCT - PLATELET PHERESIS LEUKOREDUCED (09/01/2017 9:43 AM) + + + + | Component | Value | Ref Range | + + + + | PRODUCT DESCRIPTION | PLATELETS PHERESIS LEUKOCYTE REDUCED | | + + + + | PRODUCT UNIT # | [id number] | | + + + + | UNIT ABO | A | | + + + + | UNIT RH | POS | | + + + + | STATUS OF UNIT | Presumed Transfused | | + + + + | EXPIRATION DATE | [id number] | | + + + + | BLOOD TYPE BARCODE | 6200 | | + + + + | BLOOD PRODUCT CODE | [id number] | | + + + + + + + | Specimen | Performing Laboratory | + + + | | [facility], TRANSFUSION MEDICINE [address] [place] [address] | | | [place] [address] | + + + PRODUCT - FRESH FROZEN PLASMA (09/01/2017 9:35 AM) + + + + | Component | Value | Ref Range | + + + + | PRODUCT DESCRIPTION | LIQUID PLASMA, IRRADIATED | | + + + + | PRODUCT UNIT # | [id number] | | + + + + | UNIT ABO | A | | + + + + | UNIT RH | NEG | | + + + + | STATUS OF UNIT | Presumed Transfused | | + + + + | EXPIRATION DATE | [id number] | | + + + + | BLOOD TYPE BARCODE | | | + + + + | BLOOD PRODUCT CODE | [id number] | | + + + + + + + | Specimen | Performing Laboratory | + + + | | [facility], TRANSFUSION MEDICINE [address] [place] [address] | | | [place] [address] | + + + PRODUCT - FRESH FROZEN PLASMA (09/01/2017 9:35 AM) + + + + | Component | Value | Ref Range | + + + + | PRODUCT DESCRIPTION | LIQUID PLASMA, IRRADIATED | | + + + + | PRODUCT UNIT # | [id number] | | + + + + | UNIT ABO | A | | + + + + | UNIT RH | NEG | | + + + + | STATUS OF UNIT | Returned to Blood Bank | | + + + + | EXPIRATION DATE | [id number] | | + + + + | BLOOD TYPE BARCODE | 0600 | | + + + + | BLOOD PRODUCT CODE | [id number] | | + + + + + + + | Specimen | Performing Laboratory | + + + | | [facility], TRANSFUSION MEDICINE [address] [place] [address] | | | [place] [address] | + + + PRODUCT - FRESH FROZEN PLASMA (09/01/2017 9:35 AM) + + + + | Component | Value | Ref Range | + + + + | PRODUCT DESCRIPTION | LIQUID PLASMA, IRRADIATED | | + + + + | PRODUCT UNIT # | [id number] | | + + + + | UNIT ABO | A | | + + + + | UNIT RH | POS | | + + + + | STATUS OF UNIT | Returned to Blood Bank | | + + + + | EXPIRATION DATE | [id number] | | + + + + | BLOOD TYPE BARCODE | 6200 | | + + + + | BLOOD PRODUCT CODE | [id number] | | + + + + + + + | Specimen | Performing Laboratory | + + + | | [facility], TRANSFUSION MEDICINE [address] [place] [address] | | | [place] [address] | + + + PRODUCT - FRESH FROZEN PLASMA (09/01/2017 9:35 AM) + + + + | Component | Value | Ref Range | + + + + | PRODUCT DESCRIPTION | LIQUID PLASMA, IRRADIATED | | + + + + | PRODUCT UNIT # | [id number] | | + + + + | UNIT ABO | A | | + + + + | UNIT RH | POS | | + + + + | STATUS OF UNIT | Presumed Transfused | | + + + + | EXPIRATION DATE | [id number] | | + + + + | BLOOD TYPE BARCODE | 6200 | | + + + + | BLOOD PRODUCT CODE | [id number] | | + + + + + + + | Specimen | Performing Laboratory | + + + | | [facility], TRANSFUSION MEDICINE [address] [place] [address] | | | [place] [address] | + + + PRODUCT - RED CELLS LEUKOREDUCED (09/01/2017 9:35 AM) + + + + | Component | Value | Ref Range | + + + + | PRODUCT DESCRIPTION | -1 RED BLOOD CELL ADENINE-SALINE ADDED | | | | LEUKOCYTE | | + + + + | PRODUCT UNIT # | [id number] | | + + + + | UNIT ABO | O | | + + + + | UNIT RH | POS | | + + + + | STATUS OF UNIT | Returned to Blood Bank | | + + + + | EXPIRATION DATE | [id number] | | + + + + | BLOOD TYPE BARCODE | 5100 | | + + + + | BLOOD PRODUCT CODE | [id number] | | + + + + + + + | Specimen | Performing Laboratory | + + + | | [facility], TRANSFUSION MEDICINE [address] | | | [place] [address] | + + + PRODUCT - RED CELLS LEUKOREDUCED (09/01/2017 9:35 AM) + + + + | Component | Value | Ref Range | + + + + | PRODUCT DESCRIPTION | -1 RED BLOOD CELL ADENINE-SALINE ADDED | | | | LEUKOCYTE | | + + + + | PRODUCT UNIT # | [id number] | | + + + + | UNIT ABO | O | | + + + + | UNIT RH | POS | | + + + + | STATUS OF UNIT | Returned to Blood Bank | | + + + + | EXPIRATION DATE | [id number] | | + + + + | BLOOD TYPE BARCODE | 5100 | | + + + + | BLOOD PRODUCT CODE | [id number] | | + + + + + + + | Specimen | Performing Laboratory | + + + | | [facility], TRANSFUSION MEDICINE [address] | | | [place] [address] | + + + PRODUCT - RED CELLS LEUKOREDUCED (09/01/2017 9:35 AM) + + + + | Component | Value | Ref Range | + + + + | PRODUCT DESCRIPTION | -1 RED BLOOD CELL ADENINE-SALINE ADDED | | | | LEUKOCYTE | | + + + + | PRODUCT UNIT # | [id number] | | + + + + | UNIT ABO | O | | + + + + | UNIT RH | POS | | + + + + | STATUS OF UNIT | Presumed Transfused | | + + + + | EXPIRATION DATE | [id number] | | + + + + | BLOOD TYPE BARCODE | 5100 | | + + + + | BLOOD PRODUCT CODE | [id number] | | + + + + + + + | Specimen | Performing Laboratory | + + + | | [facility], TRANSFUSION MEDICINE [address] [place] [address] | | | [place] [address] | + + + PRODUCT - RED CELLS LEUKOREDUCED (09/01/2017 9:35 AM) + + + + | Component | Value | Ref Range | + + + + | PRODUCT DESCRIPTION | -1 RED BLOOD CELL ADENINE-SALINE ADDED | | | | LEUKOCYTE | | + + + + | PRODUCT UNIT # | [id number] | | + + + + | UNIT ABO | O | | + + + + | UNIT RH | POS | | + + + + | STATUS OF UNIT | Presumed Transfused | | + + + + | EXPIRATION DATE | [id number] | | + + + + | BLOOD TYPE BARCODE | 5100 | | + + + + | BLOOD PRODUCT CODE | [id number] | | + + + + + + + | Specimen | Performing Laboratory | + + + | | [facility], TRANSFUSION MEDICINE [address] [facility] | | | [place] [address] | + + + PRODUCT - RED CELLS LEUKOREDUCED (09/01/2017 9:35 AM) + + + + | Component | Value | Ref Range | + + + + | PRODUCT DESCRIPTION | -1 RED BLOOD CELL ADENINE-SALINE ADDED | | | | LEUKOCYTE | | + + + + | PRODUCT UNIT # | [id number] | | + + + + | UNIT ABO | O | | + + + + | UNIT RH | POS | | + + + + | STATUS OF UNIT | Returned to Blood Bank | | + + + + | EXPIRATION DATE | [id number] | | + + + + | BLOOD TYPE BARCODE | 5100 | | + + + + | BLOOD PRODUCT CODE | [id number] | | + + + + + + + | Specimen | Performing Laboratory | + + + | | [facility], TRANSFUSION MEDICINE [address] | | | [place] [address] | + + + PRODUCT - RED CELLS LEUKOREDUCED (09/01/2017 9:35 AM) + + + + | Component | Value | Ref Range | + + + + | PRODUCT DESCRIPTION | -1 RED BLOOD CELL ADENINE-SALINE ADDED | | | | LEUKOCYTE | | + + + + | PRODUCT UNIT # | [id number] | | + + + + | UNIT ABO | O | | + + + + | UNIT RH | POS | | + + + + | STATUS OF UNIT | Presumed Transfused | | + + + + | EXPIRATION DATE | [id number] | | + + + + | BLOOD TYPE BARCODE | 5100 | | + + + + | BLOOD PRODUCT CODE | [id number] | | + + + + + + + | Specimen | Performing Laboratory | + + + | | [facility], TRANSFUSION MEDICINE [address] [place] [address] | | | [place] [address] | + + + CBC (HEMOGRAM) ONLY [...] | + + + | Blood | [facility], CORE [address] [place] [address] | | | [place] [address] | + + + RENAL FUNCTION SET [...] | >60 | >60 mL/min | | [place] | | | + + + + | EGFR NON | >60 | >60 mL/min | | -[place] | | | + + + + [...] | + + + | Blood | [facility], CORE [address] [facility] | | | [place] [address] | + + + + + | [...] | | ------ CBC (HEMOGRAM) | | ONLY[[id number]] Abnormal Final | | result Please view results for these tests on the | | individual orders. | + + LACTATE (09/01/2017 9:35 AM) + +-------+ + | Component | Value | Ref Range | + +-------+ + | LACTATE | 2.5 | mmol/L | + +-------+ + + + + | Specimen | Performing Laboratory | + + + | Blood | [facility], CORE [address] [facility] | | | [place] [address] | + + + + + | [...] + + + | Blood | [facility] [address] | | | [place] [address] | + + + X-RAY PORTABLE CHEST 1 VIEW (09/01/2017 9:18 AM) + + + | Specimen | Performing Laboratory | + + + | | [facility] VOICE RECOGNITION | + + + + + | Narrative | + + | EXAM: CT CHEST 1 VIEW HISTORY: Intubated COMPARISON: 08/31/17 [...] Interface - 09/02/2017 1:23 PM PDT EXAM: CT CHEST 1 | | VIEW HISTORY: IntubatedCOMPARISON: [...] Laboratory | + + + | | [facility] VOICE RECOGNITION | + + + [...] + + | PRODUCT UNIT # | [id number] | | + + + + | UNIT ABO | O | | + + + + | UNIT RH | POS | | + + + + | STATUS OF UNIT | Presumed Transfused | | + + + + | EXPIRATION DATE | [id number] | | + + + + | BLOOD TYPE BARCODE | 5100 | | + + + + | BLOOD PRODUCT CODE | [id number] | | + + + + + + + | Specimen | Performing Laboratory | + + + | | [facility], TRANSFUSION MEDICINE [address] | | | [place] [address] | + + + PRODUCT - RED CELLS LEUKOREDUCED (09/01/2017 9:08 AM) + + + + | Component | Value | Ref Range | + + + + | PRODUCT DESCRIPTION | -1 RED BLOOD CELL ADENINE-SALINE ADDED | | | | LEUKOCYTE | | + + + + | PRODUCT UNIT # | [id number] | | + + + + | UNIT ABO | O | | + + + + | UNIT RH | POS | | + + + + | STATUS OF UNIT | Presumed Transfused | | + + + + | EXPIRATION DATE | [id number] | | + + + + | BLOOD TYPE BARCODE | 5100 | | + + + + | BLOOD PRODUCT CODE | [id number] | | + + + + + + + | Specimen | Performing Laboratory | + + + | | [facility], TRANSFUSION MEDICINE [address] [place] [address] | | | [place] [address] | + + + PRODUCT - RED CELLS LEUKOREDUCED (09/01/2017 9:08 AM) + + + + | Component | Value | Ref Range | + + + + | PRODUCT DESCRIPTION | -1 RED BLOOD CELL ADENINE-SALINE ADDED | | | | LEUKOCYTE | | + + + + | PRODUCT UNIT # | [id number] | | + + + + | UNIT ABO | O | | + + + + | UNIT RH | POS | | + + + + | STATUS OF UNIT | Presumed Transfused | | + + + + | EXPIRATION DATE | [id number] | | + + + + | BLOOD TYPE BARCODE | 5100 | | + + + + | BLOOD PRODUCT CODE | [id number] | | + + + + + + + | Specimen | Performing Laboratory | + + + | | [facility], TRANSFUSION MEDICINE [address] [place] [address] | | | [place] [address] | + + + PRODUCT - RED CELLS LEUKOREDUCED (09/01/2017 9:08 AM) + + + + | Component | Value | Ref Range | + + + + | PRODUCT DESCRIPTION | -1 RED BLOOD CELL ADENINE-SALINE ADDED | | | | LEUKOCYTE | | + + + + | PRODUCT UNIT # | [id number] | | + + + + | UNIT ABO | O | | + + + + | UNIT RH | POS | | + + + + | STATUS OF UNIT | Presumed Transfused | | + + + + | EXPIRATION DATE | [id number] | | + + + + | BLOOD TYPE BARCODE | 5100 | | + + + + | BLOOD PRODUCT CODE | [id number] | | + + + + + + + | Specimen | Performing Laboratory | + + + | | [facility], TRANSFUSION MEDICINE [address] | | | [place] [address] | + + + PRODUCT - FRESH FROZEN PLASMA (09/01/2017 9:08 AM) + + + + | Component | Value | Ref Range | + + + + | PRODUCT DESCRIPTION | PLASMA THAWED | | + + + + | PRODUCT UNIT # | [id number] | | + + + + | UNIT ABO | B | | + + + + | UNIT RH | POS | | + + + + | STATUS OF UNIT | Presumed Transfused | | + + + + | EXPIRATION DATE | [id number] | | + + + + | BLOOD TYPE BARCODE | 7300 | | + + + + | BLOOD PRODUCT CODE | [id number] | | + + + + + + + | Specimen | Performing Laboratory | + + + | | [facility], TRANSFUSION MEDICINE [address] [facility] | | | [place] [address] | + + + PRODUCT - FRESH FROZEN PLASMA (09/01/2017 9:08 AM) + + + + | Component | Value | Ref Range | + + + + | PRODUCT DESCRIPTION | PLASMA THAWED | | + + + + | PRODUCT UNIT # | [id number] | | + + + + | UNIT ABO | B | | + + + + | UNIT RH | POS | | + + + + | STATUS OF UNIT | Presumed Transfused | | + + + + | EXPIRATION DATE | [id number] | | + + + + | BLOOD TYPE BARCODE | 7300 | | + + + + | BLOOD PRODUCT CODE | [id number] | | + + + + + + + | Specimen | Performing Laboratory | + + + | | [facility], TRANSFUSION MEDICINE [address] [facility] | | | [place] [address] | + + + PRODUCT - FRESH FROZEN PLASMA (09/01/2017 9:08 AM) + + + + | Component | Value | Ref Range | + + + + | PRODUCT DESCRIPTION | PLASMA THAWED | | + + + + | PRODUCT UNIT # | [id number] | | + + + + | UNIT ABO | B | | + + + + | UNIT RH | POS | | + + + + | STATUS OF UNIT | Presumed Transfused | | + + + + | EXPIRATION DATE | [id number] | | + + + + | BLOOD TYPE BARCODE | 7300 | | + + + + | BLOOD PRODUCT CODE | [id number] | | + + + + + + + | Specimen | Performing Laboratory | + + + | | [facility], TRANSFUSION MEDICINE [address] [place] [address] | | | [place] [address] | + + + PRODUCT - FRESH FROZEN PLASMA (09/01/2017 9:08 AM) + + + + | Component | Value | Ref Range | + + + + | PRODUCT DESCRIPTION | THAWED APHERESIS PLASMA | | + + + + | PRODUCT UNIT # | [id number] | | + + + + | UNIT ABO | B | | + + + + | UNIT RH | POS | | + + + + | STATUS OF UNIT | Presumed Transfused | | + + + + | EXPIRATION DATE | [id number] | | + + + + | BLOOD TYPE BARCODE | 7300 | | + + + + | BLOOD PRODUCT CODE | [id number] | | + + + + + + + | Specimen | Performing Laboratory | + + + | | [facility], TRANSFUSION MEDICINE [address] [place] [address] | | | [place] [address] | + + + CT HEAD WO CONTRAST (09/01/2017 8:42 AM) + + + | Specimen | Performing Laboratory | + + + | | [facility] RADIOLOGY VOICE RECOGNITION | + + + [...] Note | + + | 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, [facility] Res In Interface - 09/01/2017 9:01 AM [...] + + | PRODUCT UNIT # | [id number] | | + + + + | UNIT ABO | O | | + + + + | UNIT RH | POS | | + + + + | STATUS OF UNIT | Presumed Transfused | | + + + + | EXPIRATION DATE | [id number] | | + + + + | BLOOD TYPE BARCODE | 5100 | | + + + + | BLOOD PRODUCT CODE | [id number] | | + + + + + + + | Specimen | Performing Laboratory | + + + | | [facility], TRANSFUSION MEDICINE [address] [place] [address] | | | [place] [address] | + + + LACTATE (09/01/2017 5:29 AM) + +-------+ + | Component | Value | Ref Range | + +-------+ + | LACTATE | 1.2 | mmol/L | + +-------+ + + + + | Specimen | Performing Laboratory | + + + | Blood | [facility], CORE [address] [facility] | | | [place] [address] | + + + + + | [...] | + + + | Blood | [facility], [facility] [address] [place] [address] | | | [place] [address] | + + + MRI SPINE CERVICAL/THORACIC WO CONTRAST (09/01/2017 3:53 AM) + + + | Specimen | Performing Laboratory | + + + | | [facility] RAD[facility] VOICE RECOGNITION | + + + [...] | | injured. Discussed with trauma ICU technology risk intern by Dr. Yang at 4:38 AM. I have | | personally reviewed the images and, if necessary, edited the report. I agree with | | the report as now presented. | + + + + | Procedure Note | + + | 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, Kostas Res In Interface - 09/01/2017 10:10 AM [...] interspinous ligament is injured.Discussed with trauma ICU technology risk intern | | by Dr. Yang at 4:38 AM.I have personally reviewed the images and, if necessary, | | edited the report. I agree with the report as now presented. | |3. Extensive soft tissue edema extending into the cervical and upper thoracic interspinous space, suggestive of interspinous ligament is injured. | | | |Discussed with trauma ICU technology risk intern by Dr. Yang at 4:38 AM. [...] | >60 | >60 mL/min | | [place] | | | + +---------+ + | EGFR NON | >60 | >60 mL/min | | [place] | | | + +---------+ + | [...] | + + + | Blood | [facility], CORE [facility] | | | [place] [address] | + + + + + | [...] | + + + | Blood | [facility], CORE [address] | | | [place] [address] | + + + + + | [...] | + + + | Blood | [facility], CORE [address] [facility] | | | [facility] [place] [address] | + + + LACTATE (09/01/2017 1:32 AM) + +-------+ + | Component | Value | Ref Range | + +-------+ + | LACTATE | 1.4 | mmol/L | + +-------+ + + + + | Specimen | Performing Laboratory | + + + | Blood | [facility], CORE [address] [facility] | | | [place] [address] | + + + + + | [...] | | ------ CBC (HEMOGRAM) | | ONLY[[id number]] Abnormal Final | | result Please view results for these tests on the | | individual orders. | + + PROCEDURE NOTE (09/01/2017 1:07 AM) + + | Narrative | + + | Reno Valencia MD 08/31/2017 7:01 PM Procedure Note: [...] pleural spaced was performed. A 32 size [place]an chest tube was placed into the | [...] once in the | | ICU. Dr. hCaz Munoz was present for the procedure. Findings: None | | Specimens: None Complications: None; patient | | tolerated the procedure well. Condition: Blood pressure | | improving with ongoing resuscitation, taken directly to the CT scanner. RENO Bloom | | MD MIGUEL | + + CT HEAD WO CONTRAST (09/01/2017 12:54 AM) + + + | Specimen | Performing Laboratory | + + + | | [facility] RADIOLOGY VOICE RECOGNITION | + + + [...] | ventricles. Discussed with the trauma ICU technology risk intern at 12:[address] Yang. [...] ventricles.Discussed with | | the trauma ICU technology risk intern at 12:[address] Yang.I [...] | | |Discussed with the trauma ICU technology risk intern at 12:[address] Yang. | | | | | |I have personally reviewed the images and, if necessary, edited the report. I agree with t he report as now presented. | + + PROCEDURE NOTE (09/01/2017 12:47 AM) + + + | Specimen | Performing Laboratory | + + + | | [facility], [facility] TESTS [address] | | | [place] [address] | + + + + + | Narrative | + + | Dixon Shields MD 09/01/2017 4:50 PM Femoral Venous Central Line Name: Artemio Temple 08/31/2017 Time: 17:45 Diagnosis: Hypotension, trauma [...] | + + + | Blood | [facility], CORE [address] [facility] | | | [place] [address] | + + + LACTATE (08/31/2017 9:19 PM) + +-------+ + | Component | Value | Ref Range | + +-------+ + | LACTATE | 2.2 | mmol/L | + +-------+ + + + + | Specimen | Performing Laboratory | + + + | Blood | [facility], CORE [address] [place] | | | [place] [address] | + + + + + | [...] Laboratory | + + + | | [facility] RADIOLOGY VOICE RECOGNITION | + + + [...] Laboratory | + + + | | [facility] RADIOLOGY VOICE RECOGNITION | + + + [...] Laboratory | + + + | | [facility] RADIOLOGY VOICE RECOGNITION | + + + [...] Note | + + | 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, Healarium Res In Interface - 09/01/2017 1:50 PM [...] | + + + | Blood | [facility], CORE [address] | | | [place] [address] | + + + X-RAY PORTABLE CHEST 1 VIEW (08/31/2017 7:07 PM) + + + | Specimen | Performing Laboratory | + + + | | [facility] RADIOLOGY VOICE RECOGNITION | + + + + + | Narrative | + + | STUDY: CT CHEST 1 VIEW HISTORY: Trauma COMPARISON: CT [...] Note | + + | 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, Healarium Res In Interface - 09/01/2017 1:44 PM PDT STUDY: CT CHEST 1 | | VIEWHISTORY: TraumaCOMPARISON: CT [...] | + + + | Blood | [facility], CORE [address] [place] [address] | | | [place] [address] | + + + CTA NECK W CONTRAST (08/31/2017 6:27 PM) + + + | Specimen | Performing Laboratory | + + + | | [facility] RADIOLOGY VOICE RECOGNITION | + + + [...] Note | + + | 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, Healarium Res In Interface - 08/31/2017 8:22 PM [...] Laboratory | + + + | | [facility] RADIOLOGY VOICE RECOGNITION | + + + [...] Note | + + | 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, Healarium Res In Interface - 09/01/2017 10:12 AM [...] rib, nondisplaced-Left | | 1st rib fracture, ojiemuehczbi-Lsv-bosrprykw left lateral 8th rib fracture-T12 fracture | [...] | + + + | Blood | [facility], TRANSFUSION MEDICINE [address] [place] [address] | | | [place] [address] | + + + ABO & RH [...] | + + + | Blood | [facility], TRANSFUSION MEDICINE [address] [place] [address] | | | [place] [address] | + + + TYPE AND SCREEN [...] | ------ ABO & RH | | TYPE[[id number]] F | | inal result ANTIBODY | | SCREEN[[id number]] Fin | | al result Please view [...] | + + + | Blood | [facility], TRANSFUSION MEDICINE [address] [facility] | | | [place] [address] | + + + THROMBELASTOGRAPH, POC (08/31/2017 [...] | + + + | Blood | [facility] TESTS [address] | | | [place] [address] | + + + + + | [...] | + + + | Blood | [facility], POINT OF CARE TESTS [address] | | | [place] [address] | + + + + + | [...] Shields MD | + + CHEM 8 W/H&H,POC (08/31/2017 5:31 PM) + + + + [...] Laboratory | + + + | | [facility] TESTS [address] | | | [place] [address] | + + + ED BG-LAC,POC (08/31/2017 [...] [facility], POINT OF CARE TESTS [address] | | | [place] [address] | + + + PRODUCT - RED CELLS LEUKOREDUCED (08/31/2017 5:06 PM) + + + + | Component | Value | Ref Range | + + + + | PRODUCT DESCRIPTION | -1 RED BLOOD CELL ADENINE-SALINE ADDED | | | | LEUKOCYTE | | + + + + | PRODUCT UNIT # | [id number] | | + + + + | UNIT ABO | O | | + + + + | UNIT RH | POS | | + + + + | STATUS OF UNIT | Returned to Blood Bank | | + + + + | EXPIRATION DATE | [id number] | | + + + + | BLOOD TYPE BARCODE | 5100 | | + + + + | BLOOD PRODUCT CODE | [id number] | | + + + + + + + | Specimen | Performing Laboratory | + + + | | [facility], TRANSFUSION MEDICINE [address] [facility] | | | [place] [address] | + + + PRODUCT - RED CELLS LEUKOREDUCED (08/31/2017 5:06 PM) + + + + | Component | Value | Ref Range | + + + + | PRODUCT DESCRIPTION | -1 RED BLOOD CELL ADENINE-SALINE ADDED | | | | LEUKOCYTE | | + + + + | PRODUCT UNIT # | [id number] | | + + + + | UNIT ABO | O | | + + + + | UNIT RH | POS | | + + + + | STATUS OF UNIT | Presumed Transfused | | + + + + | EXPIRATION DATE | [id number] | | + + + + | BLOOD TYPE BARCODE | 5100 | | + + + + | BLOOD PRODUCT CODE | [id number] | | + + + + + + + | Specimen | Performing Laboratory | + + + | | [facility], TRANSFUSION MEDICINE [address] [facility] | | | [place] [address] | + + + PRODUCT - RED CELLS LEUKOREDUCED (08/31/2017 5:06 PM) + + + + | Component | Value | Ref Range | + + + + | PRODUCT DESCRIPTION | -1 RED BLOOD CELL ADENINE-SALINE ADDED | | | | LEUKOCYTE | | + + + + | PRODUCT UNIT # | [id number] | | + + + + | UNIT ABO | O | | + + + + | UNIT RH | POS | | + + + + | STATUS OF UNIT | Returned to Blood Bank | | + + + + | EXPIRATION DATE | [id number] | | + + + + | BLOOD TYPE BARCODE | 5100 | | + + + + | BLOOD PRODUCT CODE | [id number] | | + + + + + + + | Specimen | Performing Laboratory | + + + | | [facility], TRANSFUSION MEDICINE [address] [facility] | | | [place] [address] | + + + PRODUCT - RED CELLS LEUKOREDUCED (08/31/2017 5:06 PM) + + + + | Component | Value | Ref Range | + + + + | PRODUCT DESCRIPTION | -1 RED BLOOD CELL ADENINE-SALINE ADDED | | | | LEUKOCYTE | | + + + + | PRODUCT UNIT # | [id number] | | + + + + | UNIT ABO | O | | + + + + | UNIT RH | POS | | + + + + | STATUS OF UNIT | Presumed Transfused | | + + + + | EXPIRATION DATE | [id number] | | + + + + | BLOOD TYPE BARCODE | 5100 | | + + + + | BLOOD PRODUCT CODE | [id number] | | + + + + + + + | Specimen | Performing Laboratory | + + + | | [facility], TRANSFUSION MEDICINE [address] [facility] | | | [place] [address] | + + + PRODUCT - FRESH FROZEN PLASMA (08/31/2017 5:05 PM) + + + + | Component | Value | Ref Range | + + + + | PRODUCT DESCRIPTION | LIQUID PLASMA, IRRADIATED | | + + + + | PRODUCT UNIT # | [id number] | | + + + + | UNIT ABO | A | | + + + + | UNIT RH | POS | | + + + + | STATUS OF UNIT | Presumed Transfused | | + + + + | EXPIRATION DATE | [id number] | | + + + + | BLOOD TYPE BARCODE | 6200 | | + + + + | BLOOD PRODUCT CODE | [id number] | | + + + + + + + | Specimen | Performing Laboratory | + + + | | [facility], TRANSFUSION MEDICINE [address] | | | [place] [address] | + + + PRODUCT - FRESH FROZEN PLASMA (08/31/2017 5:05 PM) + + + + | Component | Value | Ref Range | + + + + | PRODUCT DESCRIPTION | LIQUID PLASMA, IRRADIATED | | + + + + | PRODUCT UNIT # | [id number] | | + + + + | UNIT ABO | A | | + + + + | UNIT RH | POS | | + + + + | STATUS OF UNIT | Presumed Transfused | | + + + + | EXPIRATION DATE | [id number] | | + + + + | BLOOD TYPE BARCODE | 6200 | | + + + + | BLOOD PRODUCT CODE | [id number] | | + + + + + + + | Specimen | Performing Laboratory | + + + | | [facility], TRANSFUSION MEDICINE [address] [facility] | | | [place] [address] | + + + PRODUCT - FRESH FROZEN PLASMA (08/31/2017 5:05 PM) + + + + | Component | Value | Ref Range | + + + + | PRODUCT DESCRIPTION | LIQUID PLASMA, IRRADIATED | | + + + + | PRODUCT UNIT # | [id number] | | + + + + | UNIT ABO | A | | + + + + | UNIT RH | POS | | + + + + | STATUS OF UNIT | Returned to Blood Bank | | + + + + | EXPIRATION DATE | [id number] | | + + + + | BLOOD TYPE BARCODE | 6200 | | + + + + | BLOOD PRODUCT CODE | [id number] | | + + + + + + + | Specimen | Performing Laboratory | + + + | | [facility], TRANSFUSION MEDICINE [address] [facility] | | | [place] [address] | + + + PRODUCT - FRESH FROZEN PLASMA (08/31/2017 5:05 PM) + + + + | Component | Value | Ref Range | + + + + | PRODUCT DESCRIPTION | LIQUID PLASMA, IRRADIATED | | + + + + | PRODUCT UNIT # | [id number] | | + + + + | UNIT ABO | A | | + + + + | UNIT RH | POS | | + + + + | STATUS OF UNIT | Returned to Blood Bank | | + + + + | EXPIRATION DATE | [id number] | | + + + + | BLOOD TYPE BARCODE | 6200 | | + + + + | BLOOD PRODUCT CODE | [id number] | | + + + + + + + | Specimen | Performing Laboratory | + + + | | [facility], TRANSFUSION MEDICINE [address] [facility] | | | [place] [address] | + + + CBC (HEMOGRAM) ONLY [...] | + + + | Blood | [facility], CORE [address] [place] [address] | | | [place] [address] | + + + BASIC METABOLIC SET [...] | >60 | >60 mL/min | | [place] | | | + +---------+ + | EGFR NON | >60 | >60 mL/min | | -[place] | | | + +---------+ + | [...] | + + + | Blood | [facility], CORE [address] [address] | | | [place] [address] | + + + + + | [...] | + + + | Blood | [facility], CORE [address] [facility] | | | [place] [address] | + + + + + | [...] | | ------ CBC (HEMOGRAM) | | ONLY[[id number]] Abnormal Final | | result Please view [...] | + + + | Blood | [facility], CORE [address] [place] [address] | | | [place] [address] | + + + PHOSPHORUS, PLASMA (08/31/2017 4:50 PM) + +-------+ + | Component | Value | Ref Range | + +-------+ + | PHOSPHORUS, PLASMA | 4.0 | 2.4 - 4.7 mg/dL | | (LAB) | | | + +-------+ + + + + | Specimen | Performing Laboratory | + + + | Blood | [facility], CORE [address] [facility] | | | [place] [address] | + + + MAGNESIUM, PLASMA (08/31/2017 4:50 PM) + +---------+ + | Component | Value | Ref Range | + +---------+ + | MAGNESIUM,PLASMA | 1.5 (L) | 1.6 - 2.6 mg/dL | + +---------+ + + + + | Specimen | Performing Laboratory | + + + | Blood | [facility], CORE [address] [facility] | | | [place] [address] | + + + + + | Narrative | + + | Reference range change effective 12/11/16. | + + in this encounter Visit Diagnoses Not on filein this encounter Admitting Diagnoses + + | Diagnosis | [...] | + + Administered Medications + +--------+ + +------+------+ | [...] +------+------+ +-------+ + +---+---+ | Given | 12/05/2017 [...] +-------+---+---+ | bisacodyl (DULCOLAX) | Given | 7/28/201 | 10 mg | | | | [...] | | | 0029, Until Sat12/06/17 at 2051, | | | CBG less than 70 [...] | | | | | at 2051, agitation | | | | | | [...] HOURS, First dose on Fri | | PDT [...] + | lidocaine injection | Given | | 2 mL | | Surgical | | INTRAPROCEDURE PRN, Starting Sho | | 8 11:56 | | | Site | | 10/24/17 at 1156, Until Sho | | PDT | | | | | 10/24/17 [...] +-------+ +--------+---+---+ +---+---+ | | | +---+---+ in this encounter
--- OUTSIDE RECORDS SUMMARY | ~2017-12-10 | XMS | Encounter Summary ---
Demographics + + + | Address | [address] | | | [place] [address] | + + + | Home Phone [...] + + | Author | [facility] | + + + | Organization | [facility] | + + + | Address | Unknown | + + + | Phone | Unavailable | + + + Support + + +---------+ + | Name | Relationship | Address | Phone | + + +---------+ + | Kaylie Baig | ECON | Unknown | | + + +---------+ + Care Team Providers + +------+ + | Care Production Associate Name | Role | Phone | + [...] + + + + | 09/15/ | Credit Checker | Neurosurgery at | Dallin Bourgeois, | Other closed | | 2018 | | [facility] [address] | MD [address] | nondisplaced | | | | Ave Mailcode: CH8N | [address] | fracture of seventh | | | | [place] for [facility] | [place], [place] | cervical vertebra | | | | and Healing, 8th | [address] | with routine | | | | Floor [place], [place] | [phone] | healing, subsequent | | | | [address] | | encounter (Primary | | | | [phone] | | Dx) | +--------+ + + [...] as of this encounter Plan of Treatment + +--------+ + + | Name | Priori | Associated Diagnoses | Order Schedule | | | ty | | | + +--------+ + + | X-RAY SPINE CERVICAL 2 VIEWS | Routin | Other closed | Expected: | | | e | nondisplaced | 10/07/2017, Expires: | | | | fracture of seventh | 10/16/2018 | | | | cervical vertebra | | | | | with routine | | | | | healing, subsequent | | | | | encounter | | + +--------+ + + as of this encounter Visit Diagnoses + + | Diagnosis | + + | Other closed nondisplaced fracture of seventh cervical vertebra with routine healing, | | subsequent encounter - Primary | + +"
--- OUTSIDE RECORDS SUMMARY | ~2017-12-10 | XMS | Encounter Summary ---
Demographics + + + | Address | [address] | | | [place] [address] | + + + | Home Phone [...] + + | Author | [facility] [place] [place] | + + + | Organization | [facility] [...] Team Providers + +------+ + | Care Barber Shop Operator Name | Role | Phone | + +------+ + | No Pcp Per Patient | PCP | Unavailable | + +------+ + Encounter Details +--------+ + + + + | Date | Type | Department | Care Team | Description | +--------+ + + + + | 10/12/ | Procedure | [facility] [address] | | | | 2017 | Pass | [address] | | | | | | [id number] [facility] | | | | | | [facility], | | | | | | [place] [address] | | | | | | [phone] | | | +--------+ + + + [...]
--- OUTSIDE RECORDS SUMMARY | ~2017-12-10 | XMS | Encounter Summary ---
Demographics + + + | Address | [address] | | | [place] [address] | + + + | Home Phone | | + + + | Preferred Language | Unknown | + + + | Marital Status | Single | + + + | Baptist Affiliation | PEN | + + + | Race | or | + + + | Ethnic Group | Not or | + + + Author + + + | Author | [facility] [employer] [facility] | + + + | Organization | [facility] [employer] [facility] | + + + | Address | Unknown | + + + | Phone | Unavailable | + + + Support + + +---------+ + | Name | Relationship | Address | Phone | + + +---------+ + | Kaylie Baig | ECON | Unknown | | + + +---------+ + Care Team Providers + +------+ + | Care E Learning Developer Name | Role | Phone | [...] 11/05/ | Surgery | 6A Intra Op [facility] | Magdiel Stock MD | RE-OPENING RIGHT | | 2018 | | [facility] | [address] [facility] | FRONTO-TEMPORAL | | | | Admitting Desk | [facility], | WOUND FOR RIGHT | | | | Located on the | [place] [address] | SYNTHETIC | | | | floor [address] [facility] | [phone] | CRANIOPLASTY | | | | [facility] | | | | | | [place], [place] | | | | | | [phone] | | | +--------+---------+ + + + [...] may be dif ferent from the original. [facility] Discharge Summary Discharging Provider: KESHAWN [...] risk for aspiration # nutrition - NPO, DIRECTOR REGULATORY COMPLIANCE evaluating patient when out of c collar [...] - Neurosurgery following peripherally - Must wear SERVICE RIG OPERATOR when OOB, ok for C-collar only when in bed - 12 week collar period up on 11/23, Neurosurgery documented C collar/SERVICE RIG OPERATOR weaning protocol o gloria next 5 weeks- [...] DC. He will need home health PT/ OT/DIRECTOR REGULATORY COMPLIANCE, which will not be arranged until next [...] None required Recommended rehabilitation therapies: Home health PT/OT/DIRECTOR REGULATORY COMPLIANCE Discharge Medications: Medication List START taking these [...] that I, or Nurse Practitioner or Physician Interactive Account Manager working with me, had a face to face encounter with this patient on 12/06/2017 On behalf of Attending Physician: Chaz Munoz MD I am ordering and certify that the following services are medically necessary home health [facility] Physical Therapy Evaluate and Treat I am ordering and certify that the following services are medically necessary home health [facility] Occupational Therapy Evaluate and Treat I am ordering and certify that the following services are medically necessary home health [facility] Speech Language Pathology Evaluate and Treat I am ordering and certify that the following services are medically necessary home health [facility] Health SHEET METAL FORMER Evaluate and Treat I certify that the patient is homebound based on the following clinical findings Post-hospi rakesh weakness, decreased strength and endurance, and tires easily with minimal exertion Follow Up: Schedule the following appointment(s) when you get home Call [facility] TRAUMA PPV. Why: As needed with questions, not mandatory Contact information [address] [facility] [address] Primary care provider. Schedule an [...] is 23.14 kg/m. Discharging Provider: Sherine Sarmiento [facility] Discharging Surgeon : Magali Elias MD [facility] Division of Acute Care Surgery/Critical Care [address] [place] [address] Associated attestation - Magali Elias MD,MPH - [...] by | 240 mL | 0 | 08 | | | mg/5 mL oral liquid [...] EOMI Neck: weaning cervical aspen collar & SERVICE RIG OPERATOR per NSG weaning protocol Respiratory: unlabored on [...] Started bolus tube feeds 11/23: Begun C collar/SERVICE RIG OPERATOR weaning 11/28: Psychiatry re-consulted for behavioral issues [...] risk for aspiration # nutrition - NPO, DIRECTOR REGULATORY COMPLIANCE evaluating patient when out of c collar [...] - Neurosurgery following peripherally - Must wear SERVICE RIG OPERATOR when OOB, ok for C-collar only when in bed - 12 week collar period up on 11/23, Neurosurgery documented C collar/SERVICE RIG OPERATOR weaning protocol o gloria next 5 weeks- [...] obic coverage Disposition: continue tube feeds, continue DIRECTOR REGULATORY COMPLIANCE evals while c collar off. Started depakote f or agitation with good response. Girlfriend Magali will be visiting today, this is ok per his sister Annita (see social work note). Sherine Sarmiento, [facility] [place] [phone] [facility] [place] [address] [phone] Associated attestation - Magali Elias MD,MPH - 12/05/2017 12:59 PM PDTI was present and rounded with the ANP Sherine Sarmiento today. I interviewed and examined the patient. I reviewed the history, as documented today. I participated in the development of and agree wi th the assessment and plan. Ongoing therapy; continues with improved compliance and impulsiv eness. Sherine Sarmiento, [facility] - 12/04/2017 1:38 PM PDTFormatting of this [...] EOMI Neck: weaning cervical aspen collar & SERVICE RIG OPERATOR per NSG weaning protocol Respiratory: unlabored on [...] Started bolus tube feeds 11/23: Begun C collar/SERVICE RIG OPERATOR weaning 11/28: Psychiatry re-consulted for behavioral issues [...] risk for aspiration # nutrition - NPO, DIRECTOR REGULATORY COMPLIANCE evaluating patient when out of c collar [...] - Neurosurgery following peripherally - Must wear SERVICE RIG OPERATOR when OOB, ok for C-collar only when in bed - 12 week collar period up on 11/23, Neurosurgery documented C collar/SERVICE RIG OPERATOR weaning protocol o gloria next 5 weeks- [...] obic coverage Disposition: continue tube feeds, continue DIRECTOR REGULATORY COMPLIANCE evals while c collar off. Started depakote f or agitation with good initial response. [place]ending placement [place] adult [place] [phone] [facility] [place] [address] [facility] [address] [phone] Associated attestation - Magali Elias MD,MPH - [...] Started bolus tube feeds 11/23: Begun C collar/SERVICE RIG OPERATOR weaning 11/28: Psychiatry re-consulted for behavioral issues [...] risk for aspiration # nutrition - NPO, DIRECTOR REGULATORY COMPLIANCE evaluating patient when out of c collar [...] - Neurosurgery following peripherally - Must wear SERVICE RIG OPERATOR when OOB, ok for C-collar only when in bed - 12 week collar period up on 11/23, Neurosurgery documented C collar/SERVICE RIG OPERATOR weaning protocol o gloria next 5 weeks- [...] obic coverage Disposition: continue tube feeds, continue DIRECTOR REGULATORY COMPLIANCE evals while c collar off. Starting depakote for agitation. Pending placement at adult foster home Sherine Sarmiento, [facility] [place] [phone] [facility] & [facility] [place] [phone] Associated attestation - Magali Elias MD,MPH - 12/03/2017 1:27 PM PDTI was present and rounded with the ANP Sherine Sarmiento today. I interviewed and examined the patient. I reviewed the history, as documented today. I participated in the development of and agree wi th the assessment and plan. Pulled gastrostomy tube, replaced last pm in good position via f tiffaniero. Delirium mgmt huge issue, back on haldol [...] . Ok to resume feeds. Ad Callejas [id number] Venita Pruitt PA-C - 12/02/2017 10:55 AM [...] Started bolus tube feeds 11/23: Begun C collar/SERVICE RIG OPERATOR weaning 11/28: Psychiatry re-consulted for behavioral issues [...] risk for aspiration # nutrition - NPO, DIRECTOR REGULATORY COMPLIANCE evaluating patient when out of c collar [...] - Neurosurgery following peripherally - Must wear SERVICE RIG OPERATOR when OOB, ok for C-collar only when [...] [facility] now [facility] on Kepp ra - PRN [...] obic coverage Disposition: continue tube feeds, continue DIRECTOR REGULATORY COMPLIANCE evals while c collar off. Optimize sleep. Venita Pruitt PA-[place] [phone] [place] [phone] [facility] & [address] [place] [address] [phone] Associated attestation - Magali Elias MD,MPH - [...] R [facility] multiple [...] Started bolus tube feeds 11/23: Begun C collar/SERVICE RIG OPERATOR weaning 11/28: Psychiatry re-consulted for behavioral issues [...] risk for aspiration # nutrition - NPO, DIRECTOR REGULATORY COMPLIANCE evaluating patient when out of c collar [...] - Neurosurgery following peripherally - Must wear SERVICE RIG OPERATOR when OOB, ok for C-collar only when [...] obic coverage Disposition: continue tube feeds, continue DIRECTOR REGULATORY COMPLIANCE evals while c collar off. Going back on hald ol for aggression. Optimize sleep. Venita Pruitt PA-C [place] [phone] [place] [phone] [place] Pending sale to [facility] [phone] Associated attestation - Shiva Nieto MD,MPH - 12/01/2017 2:17 PM PDTATTENDING ADDENDU M: I personally interviewed and examined the patient today with the trauma team and the physic gabriela pharmacy sales assistant. I participated in the development of and agree with the assessment and plan. 1. Scheduled haloperidol BID 5mg. Plus PRN 2. Continue DIRECTOR REGULATORY COMPLIANCE evaluation 3. Melatonin for qHS sleep Shiva Nieto MD, MPH Attending Surgeon Trauma, Critical Care & Acute Care Surgery [facility] [phone] Monse Carrasco MD - 11/30/2017 10:43 AM [...] EOMI Neck: intermittently in aspen collar and SERVICE RIG OPERATOR Respiratory: unlabored on room air CV: regular [...] Started bolus tube feeds 11/23: Begun C collar/SERVICE RIG OPERATOR weaning 11/28: Psychiatry re-consulted for behavioral issues [...] risk for aspiration # nutrition - NPO, DIRECTOR REGULATORY COMPLIANCE evaluating patient when out of c collar [...] - Neurosurgery following peripherally - Must wear SERVICE RIG OPERATOR when OOB, ok for C-collar only when [...] obic coverage Disposition: continue tube feeds, continue DIRECTOR REGULATORY COMPLIANCE evals while c collar off. Optimize sleep. Monse Carrasco MD MPH [facility] [employer] [address] [place] [address] [phone] Associated attestation - Shlomo Rosenthal MD - 12/05/2017 10:55 AM PDTI saw and examined Charli Temple ([id number]) with the TRAUMA team on 11/30/2017. I agree with the assessment and plan a s outlined in this note and participated in the planning of care. I have personally reviewed all pertinent labarotory findings, radiographs, and physiologic parameters. I personally pe rformed pertinent parts of the physical examination and personally formulated the plan with the TRAUMA team. Shlomo Rosenthal MD [employer] Professional Division of Trauma and Critical Care Monse [...] scalp, EOMI Neck: in aspen collar and SERVICE RIG OPERATOR Respiratory: unlabored on room air CV: regular [...] Started bolus tube feeds 11/23: Begun C collar/SERVICE RIG OPERATOR weaning 11/28: Psychiatry re-consulted for behavioral issues [...] risk for aspiration # nutrition - NPO, DIRECTOR REGULATORY COMPLIANCE evaluating patient when out of c collar [...] - Neurosurgery following peripherally - Must wear SERVICE RIG OPERATOR when OOB, ok for C-collar only when [...] obic coverage Disposition: continue tube feeds, continue DIRECTOR REGULATORY COMPLIANCE evals and c collar weaning. Optimize sleep Monse Carrasco MD MPH [facility] [employer] [address] [place] [address] [phone] Associated attestation - Brian Painting MD - 12/08/2017 7:33 PM PDTAttending: I saw and examined Berlin Temple ([id number]) with the residents on 11/29/17 and agree with e assessment and plan as outlined in this note and participated in the planning of care. Brian Painting MD FACS therapist asst Division of Trauma, Critical Care & Acute [...] scalp, EOMI Neck: in aspen collar and SERVICE RIG OPERATOR Respiratory: unlabored on room air CV: regular [...] Started bolus tube feeds 11/23: Begun C collar/SERVICE RIG OPERATOR weaning 11/28: Psychiatry re-consulted for behavioral issues [...] risk for aspiration # nutrition - NPO, DIRECTOR REGULATORY COMPLIANCE evaluating patient when out of c collar [...] - Neurosurgery following peripherally - Must wear SERVICE RIG OPERATOR when OOB, ok for C-collar only when [...] obic coverage Disposition: continue tube feeds, continue DIRECTOR REGULATORY COMPLIANCE evals and c collar weaning Monse Carrasco MD MPH [facility] [place] [address] [phone] Associated attestation - Brian Painting MD - 11/28/2017 11:06 PM PDTAttending: I saw and examined Berlin Temple ([id number]) with the residents on 11/28/17 and agree with e assessment and plan as outlined in this note and participated in the planning of care. Brian Painting MD FACS therapist asst Division of Trauma, Critical Care & Acute Care Surgery Fernando Li PA - 11/27/2017 3:32 PM PDTFormatting of this note may be different from the original. NEUROSURGERY INPATIENT PROGRESS NOTE Hospital Day:88 Author; FERNANDO LI PA-C Attending Physician: Chaz Munoz MD Neurosurgery: Magdiel Stock MD Interval Hx: -No events overnight -In process of SERVICE RIG OPERATOR weaning. Denies neck pain. Physical Exam: Last [...] male history of prior TBI, OSH R [facility] 01/2017 w ith post op infection [...] Patient being managed in C collar and SERVICE RIG OPERATOR. -Patient developed drainage from previous crani site [...] imary Team. -Instructions have been provided for SERVICE RIG OPERATOR weaning. -Patient's exam stable. Denies Neck pain. Repeat imaging stable. Scalp incision healing well. -Please contact our service if there are any questions or need to re-consult. -No outpatient Neurosurgery FU needed. FERNANDO LI PA-C [facility] [address] [place] [address] Pg [phone] MEDICATIONS Current Facility-Administered Medications Medication acetaminophen (TYLENOL) [...] scalp, EOMI Neck: in aspen collar and SERVICE RIG OPERATOR Respiratory: unlabored on room air CV: regular [...] Started bolus tube feeds 11/23: Begun C collar/SERVICE RIG OPERATOR weaning Active issues/Plan: # BIG 3 TBI [...] risk for aspiration # nutrition - NPO, DIRECTOR REGULATORY COMPLIANCE evaluating patient when out of c collar [...] - Neurosurgery following peripherally - Must wear SERVICE RIG OPERATOR when OOB, ok for C-collar only when [...] obic coverage Disposition: continue tube feeds, continue DIRECTOR REGULATORY COMPLIANCE evals and c collar weaning CHRISTIAN KELLEY PA-C [facility] [address] [address] [phone] Associated attestation - Brian Painting MD - 11/27/2017 8:50 PM PDTAttending: I saw and examined Berlin Temple ([id number]) with Christian Kelley PA-C on 11/27/17 and agree wi th the assessment and plan as outlined in this note and participated in the planning of care . Increase melatonin and trazodone for insomnia. Enteral feeding via PEG tube for dysphagia. Disposition planning. Brian Painting MD FACS therapist asst Division of Trauma, Critical Care & Acute [...] Weaning C- collar based on NSG plan DIRECTOR REGULATORY COMPLIANCE continues to follow Current meds: I have [...] duplex negative for DVT 11/19 Summary: Berlin Temlpe is a 67 y.o. M w/PMH [...] Started bolus tube feeds 11/23: Begun C collar/SERVICE RIG OPERATOR weaning Active issues/Plan: # BIG 3 TBI [...] risk for aspiration # nutrition - NPO, DIRECTOR REGULATORY COMPLIANCE evaluating patient when out of c collar [...] - Neurosurgery following peripherally - Must wear SERVICE RIG OPERATOR when OOB, ok for C-collar only when [...] looking for placement Venita Pruitt PA-C [place] [phone] [facility] [place] [address] [address] [facility] [place] [address] Associated attestation - Brian Painting MD - 11/26/2017 8:52 PM PDTAttending: I saw and examined Berlin Temple ([id number]) with Venita Pruitt PA-C on 11/26/17 and agree wi th the assessment and plan as outlined in this note and participated in the planning of care . Continue enteral feeding via PEG tube due to dysphagia. Speech pathology continues to foll ow. Maintain cervical immbolization collar while in bed for C7 bilateral lamina fractures. D ischarge planning. Brian Painting MD FACS therapist asst Division of Trauma, Critical Care & Acute [...] Weaning C- collar based on NSG plan DIRECTOR REGULATORY COMPLIANCE continues to follow Current meds: I have [...] Started bolus tube feeds 11/23: Begun C collar/SERVICE RIG OPERATOR weaning Active issues/Plan: # BIG 3 TBI [...] risk for aspiration # nutrition - NPO, DIRECTOR REGULATORY COMPLIANCE evaluating patient when out of c collar [...] - Neurosurgery following peripherally - Must wear SERVICE RIG OPERATOR when OOB, ok for C-collar only when [...] col lar weaning, CM looking for placement DIANNA CarolinaC [place] [phone] [facility] [place] [address] [address] [facility] [phone] Associated attestation - Brian Painting MD - 11/26/2017 11:56 AM PDTAttending: I saw and examined Berlin Temple ([id number]) with Venita Pruitt PA-C on 11/25/17 and agree wi th the assessment and plan as outlined in this note and participated in the planning of care . Continue bolus enteral feeding via PEG tube for dysphagia. Trazodone and quetiapine for tr aumatic encephalopathy and agitation. Maintain cervical immbolization collar while in bed. Brian Painting MD FACS therapist asst Division of Trauma, Critical Care & Acute [...] events: No acute events overnight Worked with DIRECTOR REGULATORY COMPLIANCE yesterday - remains NPO Doing well with c collar/director of trauma weaning plan Current meds: I have independently [...] to midline right scalp, EOMI Neck: in [place] collar Chest: in SERVICE RIG OPERATOR Respiratory: unlabored on room air CV: regular [...] Started bolus tube feeds 11/23: Begun C collar/SERVICE RIG OPERATOR weaning Active issues/Plan: # BIG 3 TBI [...] risk for aspiration # nutrition - NPO, DIRECTOR REGULATORY COMPLIANCE evaluating patient when out of c collar [...] - Neurosurgery following peripherally - Must wear SERVICE RIG OPERATOR when OOB, ok for C-collar only when [...] CM looking for placement CHRISTIAN KELLEY PA-C [facility] [place] [address] [facility] [phone] Associated attestation - Santos Cardozo MD - [...] with speech toward being able to swallow. [id number] Christian Kelley PA-C - 11/23/2017 12:26 PM [...] overnight Planning to begin C collar and SERVICE RIG OPERATOR weaning plan Current meds: I have independently [...] to midline right scalp, EOMI Neck: in [place] collar Chest: in SERVICE RIG OPERATOR Respiratory: CTA bilaterally, lungs symmetrical, equal chest [...] Started bolus tube feeds 11/23: Begun C collar/SERVICE RIG OPERATOR weaning Active issues/Plan: # BIG 3 TBI [...] risk for aspiration # nutrition - NPO, DIRECTOR REGULATORY COMPLIANCE following - PEG tube feeds switched to goal @ 250 mL x 5/day, 225ml free water flushes 5x/day - DIRECTOR REGULATORY COMPLIANCE to work with patient on swallow while [...] - Neurosurgery following peripherally - Must wear SERVICE RIG OPERATOR when OOB, ok for C-collar only when [...] agitation & sleep management CHRISTIAN KELLEY PA-C [facility] [place] [address] [place] [phone] Sherine Sarmiento, AGACN - 11/22/2017 6:37 AM PDTFormatting of this [...] administered via G tube seen immediately in JREONIMO drain. 10/22: PICC line placed, started on [...] risk for aspiration # nutrition - NPO, DIRECTOR REGULATORY COMPLIANCE following - PEG tube feeds switched to [...] - Neurosurgery following peripherally - Must wear SERVICE RIG OPERATOR when OOB, ok for C-collar only when [...] agitation & [place] [address] [facility] [place] [address] [facility] [address] [phone] Associated attestation - Fidelina Shields MD - 11/25/2017 5:51 AM PDTAttending: I saw and examined Berlin Temple ([id number]) with KESHAWN Alexander on scarlett g rounds 11/22/17 and agree with the assessment and plan as outlined in this note and partic ipated in the planning of care. This is a late entry for care provided on that date. Sleep is somewhat improved with adjusted medication regimen. Increasing mobility. Plan c-c ollar weaning per neurosurgery recs. Fidelina Shields MD Hypertrichologist Division of Trauma, Critical Care and Acute Care Surgery Office: [phone] Pager: [phone] Fernando Li PA - 11/21/2017 4:21 PM PDTNeurosurgery Brief Note: Reviewed repeat imaging C spine. Ok to start C Collar and SERVICE RIG OPERATOR taper as planned on 11/23/17. Written 5 [...] LI PA-C [facility] [address] [place] [address] Sherine Sarmiento AGACNP - 11/21/2017 6:52 AM [...] risk for aspiration # nutrition - NPO, DIRECTOR REGULATORY COMPLIANCE following - PEG tube feeds switched to [...] - Neurosurgery following peripherally - Must wear SERVICE RIG OPERATOR when OOB, ok for C-collar only when [...] Sleep & [place] [address] [facility] & [place] [address] [address] [place] [address] [phone] Associated attestation - Fidelina Shields MD - 11/21/2017 2:27 PM PDTAttending: I saw and examined Berlin Temple ([id number]) with KESHAWN Alexander on mornin g rounds [...] mobility and daytime wakefullness. Fidelina Shields MD Hypertrichologist Division of Trauma, Critical Care and Acute Care Surgery Office: [phone] Pager: [phone] Venita Pruitt PA-C - 11/20/2017 12:31 PM [...] risk for aspiration # nutrition - NPO, DIRECTOR REGULATORY COMPLIANCE following - PEG tube feeds switched to [...] - Neurosurgery following peripherally - Must wear SERVICE RIG OPERATOR when OOB, ok for C-collar only when [...] seroquel as needed. Venita Pruitt PA-C [place] [phone] [facility] & [address] [place] [phone] Associated attestation - Fidelina Shields MD - [...] Placement remains a challenge. Fidelina Shields MD Hypertrichologist Division of Trauma, Critical Care and Acute Care Surgery Office: [phone] Pager: [phone] Fernando Li PA - 11/20/2017 10:51 AM [...] y/o Male in Hard Cervical Collar in [facility] Incision: C/D/I, no erythema-removed scalp sutures. Neuro: [...] Patient being managed in C collar and SERVICE RIG OPERATOR. -Patient developed drainage from previous crani site [...] Spine immobilization. Cervical collar while in bed, SERVICE RIG OPERATOR when OOB planned duration of immobilization 12 weeks total: 11/23/17. Will then wean out of Cervical collar over 5 week period. Will provide written instructions. FERNANDO LI PA-C [facility] [address] [place] [address] Pg [phone] MEDICATIONS Current Facility-Administered Medications Medication acetaminophen (TYLENOL) [...] risk for aspiration # nutrition - NPO, DIRECTOR REGULATORY COMPLIANCE following - PEG tube feeds switched to [...] - Neurosurgery following peripherally - Must wear SERVICE RIG OPERATOR when OOB, ok for C-collar only when [...] seroquel as needed. Venita Pruitt PA-C P[place] [phone] [facility] [place] [address] [phone] Associated attestation - Fidelina Shields MD - 11/19/2017 2:24 PM PDTAttending: I saw and examined Berlin Temple with Venita Pruitt PA-C on morning rounds 11/19/17 and ag ree with the assessment and plan as outlined in this note and participated in the planning o f care. Adjusting antipsychotic medication and behavioral interventions while we search for suitabl e discharge plan. Fidelina Shields MD Hypertrichologist Division of Trauma, Critical Care and Acute Care Surgery Office: [phone] Pager: [phone] Fernando Li PA - 11/18/2017 9:03 AM [...] male history of prior TBI, OSH [facility] 01/2017 w ith post op infection [...] Patient being managed in C collar and SERVICE RIG OPERATOR. -Patient developed drainage from previous crani site [...] Spine immobilization. Cervical collar while in bed, SERVICE RIG OPERATOR when OOB planned duration of immobilization 12 weeks total: 11/23/17. Will then wean out of Cervical collar over 5 week period. Will provide written instructions. FERNANDO LI PA-C [facility] [address] [place] [id number] MEDICATIONS Current Facility-Administered Medications Medication acetaminophen (TYLENOL) [...] risk for aspiration # nutrition - NPO, DIRECTOR REGULATORY COMPLIANCE following - PEG tube feeds switched to [...] - Neurosurgery following peripherally - Must wear SERVICE RIG OPERATOR when OOB, ok for C-collar only when in bed - Will likely need for 12 weeks (ends November 23), then wean out of Cervical collar over 5 w point lay ira period. Per NSG they will provide written [...] haldol as tolerated Venita Pruitt PA-C [place] [phone] [facility] [place] [address] [facility] [place] [address] [phone] Associated attestation - Fidelina Shields MD - 11/19/2017 12:18 AM PDTAttending: I saw and examined [place] Temple with Venita Pruitt PA-C on morning rounds 11/18/17 and ag ree with the assessment and plan as outlined in this note and participated in the planning o f care. Mental status continues to wax/wane, working on disposition options. Fidelina Shields MD Hypertrichologist Division of Trauma, Critical Care and Acute Care Surgery Office: [phone] Pager: [phone] Sherine Sarmiento [facility] - 11/17/2017 10:49 AM PDTFormatting of this [...] risk for aspiration # nutrition - NPO, DIRECTOR REGULATORY COMPLIANCE following - PEG tube feeds switched to goal @ 275 mL x 5/day, 200ml free water flushes 5x/day # insomnia - melatonin 3mg qhs - Haldol 5mg Qhs - Trazadone increased from 50 [id number] QHS with no effect - Start Quetiapine 50mg QHS with 25mg Q12hrs PRN, with the goal of uptitrating seroquel and weaning off haldol - ECG 11/17 QTC 427 #Relative hypotension - Improving after initiation of free water flushes - Orthostatics negative # C7 bilateral lamina fractures/ C6-T2 spinous process fractures - Neurosurgery following peripherally - Must wear SERVICE RIG OPERATOR when OOB, ok for C-collar only when in bed - Will likely need for 12 weeks (ends November 23), then wean out of Cervical collar over 5 w point lay ira period. Per NSG they will provide written [...] will [place] [phone] [facility] [address] [place] [address] [phone] Associated attestation - Em Cunningham MD - 11/27/2017 9:13 PM PDTI was present and rou nded with the Advanced Practice Provider today. I interviewed and examined the patient. I reviewed the history, as documented today. I agree with the ASHLEY assessment and plan. Con tinue abx for epidural abscess. DIRECTOR REGULATORY COMPLIANCE is continuing to follow. Continue feeding via PEG. May onin for insomnia. Must weat SERVICE RIG OPERATOR when OOB. EM CUNNINGHAM MD [facility] [address] [place] [address] Sherine Sarmiento AGACNP - 11/16/2017 12:22 PM [...] risk for aspiration # nutrition - NPO, DIRECTOR REGULATORY COMPLIANCE following - PEG tube feeds switched to goal @ 275 mL x 5/day, 200ml free water flushes 5x/day # insomnia - melatonin 3mg qhs - Haldol 5mg Qhs - Will increase trazadone from 50 [id number] QHS #Relative hypotension - Improving after initiation of free water flushes - Orthostatics negative Resolved or chronic issues/Plan: # C7 bilateral lamina fractures/ C6-T2 spinous process fractures - Neurosurgery following - Must wear SERVICE RIG OPERATOR when OOB, ok for C-collar only when [...] increase trazod[place] for [place] [phone] [facility] [place] [address] [facility] [address] [phone] Associated attestation - Fidelina Shields MD - 11/25/2017 5:48 AM PDTAttending: I saw and examined Berlin Temple ([id number]) with KESHAWN Alexander on mornin g rounds [...] remains a persistent issue. Fidelina Shields MD Hypertrichologist Division of Trauma, Critical Care and Acute Care Surgery Office: [phone] Pager: [phone] Fernando Li PA - 11/15/2017 1:59 PM [...] 08/31/17intubated without history. 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 CT spine shows multiple fractures with most concerning fr acture at C7 lamina with canal intrusion. Patient being managed in C collar and SERVICE RIG OPERATOR. -Patient developed drainage from previous crani site [...] Spine immobilization. Cervical collar while in bed, SERVICE RIG OPERATOR when OOB planned duration of immobilization 12 weeks total: 11/23/17. Will then wean out of Cervical collar over 5 week period. Will provide written instructions. FERNANDO LI PA-C [facility] [address] [place] [address] MEDICATIONS Current Facility-Administered Medications Medication acetaminophen (TYLENOL) [...] traZODone (DESYREL) tablet 50 mg Sherine Sarmiento, AGACN - 11/15/2017 6:43 AM PDTFormatting of this [...] risk for aspiration # nutrition - NPO, DIRECTOR REGULATORY COMPLIANCE following - PEG tube feeds switched to [...] fractures - Neurosurgery following - Must wear SERVICE RIG OPERATOR when OOB, ok for C-collar only when [...] to remove sitter [place] [phone] [facility] [address] [place] [address] [phone] Associated attestation - Em Cunningham MD - 11/16/2017 8:35 AM PDTI was present and rou nded with the Advanced Practice Provider today. I interviewed and examined the patient. I reviewed the history, as documented today. I agree with the ASHLEY assessment and plan. Worki ng on pain control. Continue melatonin and trazadone for insomnia. EM CUNNINGHAM MD [facility] [address] [place] [address] Moncho Wise MD - 11/14/2017 6:35 PM [...] Dysphagia, risk for aspiration #nutrition - NPO, DIRECTOR REGULATORY COMPLIANCE following - PEG tube feeds switched to goal @ 275 mL x 5/day # insomnia - melatonin 3mg qhs - trazadone 50mg qhs Resolved or chronic issues/Plan: # C7 bilateral lamina fractures/ C6-T2 spinous process fractures - Neurosurgery following - Must wear SERVICE RIG OPERATOR when OOB, ok for C-collar only when [...] Wise MD General Surgery, PGY-1 Trauma pager: [phone] [facility] [place] [address] [phone] Associated attestation - Em Cunningham MD - 11/15/2017 9:21 AM PDTI saw and evaluated t he patient. I agree with the findings and the plan of care as documented in the resident s note. EM CUNNINGHAM MD [facility] [address] [place] [address] Moncho Wise MD - 11/13/2017 4:26 PM [...] Dysphagia, risk for aspiration #nutrition - NPO, DIRECTOR REGULATORY COMPLIANCE following - PEG tube feeds to nocturnal continuous for better tolerance -- 200mL/ 10 hours # insomnia - melatonin 3mg qhs - trazadone 50mg qhs Resolved or chronic issues/Plan: # C7 bilateral lamina fractures/ C6-T2 spinous process fractures - Neurosurgery following - Must wear SERVICE RIG OPERATOR when OOB, ok for C-collar only when [...] Wise MD General Surgery, PGY-1 Trauma pager: [phone] [facility] [place] [address] [place] [address] [phone] Associated attestation - Em Cunningham MD - 11/14/2017 8:56 AM PDTI saw and evaluated t he patient. I agree with the findings and the plan of care as documented in the resident s note. EM CUNNINGHAM MD [facility] [address] [place] [address] Fernando Li PA - 11/13/2017 1:22 PM [...] - 1.30 mg/dL 0.48 (L) EGFR - EQUATORIAL GUINEAN Latest Ref Range: >60 mL/min >60 EGFR NON -EQUATORIAL GUINEAN Latest Ref Range: >60 mL/min >60 GLUCOSE, [...] Patient being managed in C collar and SERVICE RIG OPERATOR. -Patient developed drainage from previous crani site [...] Spine immobilization. Cervical collar while in bed, SERVICE RIG OPERATOR when OOB anticipate duration of immobilization 12 weeks total: 11/23/17. Will then wean out of Cervical collar over 5 week period. FERNANDO LI PA-C [facility] [address] [place] [address] Pg [phone] MEDICATIONS Current Facility-Administered Medications Medication acetaminophen (TYLENOL) [...] Dysphagia, risk for aspiration #nutrition - NPO, DIRECTOR REGULATORY COMPLIANCE following - PEG tube feeds to nocturnal continuous for better tolerance -- 200mL/ 10 hours # insomnia - melatonin 3mg qhs - trazadone 50mg qhs Resolved or chronic issues/Plan: # C7 bilateral lamina fractures/ C6-T2 spinous process fractures - Neurosurgery following - Must wear SERVICE RIG OPERATOR when OOB, ok for C-collar only when [...] Wise MD General Surgery, PGY-1 Trauma pager: [phone] [facility] [place] [address] [phone] Associated attestation - Shlomo oRsenthal MD - 11/12/2017 5:43 PM PDTAttending: I saw and examined Berlin Temple ([id number]) with the residents on 11/12/2017 and agree with the assessment and plan as outlined in this note and participated in the planning of care. Shlomo Rosenthal MD Insurance Professional Division of Trauma and Critical Care Venita [...] Dysphagia, risk for aspiration #nutrition - NPO, DIRECTOR REGULATORY COMPLIANCE following -PEG tube feeds to nocturnal continuous for better tolerance -- 200mL/ 10 hours # insomnia - will start melatonin - will start trazadone QHS Resolved or chronic issues/Plan: # C7 bilateral lamina fractures/ C6-T2 spinous process fractures - Neurosurgery following - Must wear SERVICE RIG OPERATOR when OOB, ok for C-collar only when [...] placeme nt options. Venita Pruitt PA-C [place] [phone] [place] [phone] [facility] [address] [place] [address] [phone] Associated attestation - Em Cunningham MD - [...] CUNNINGHAM MD [facility] [address] [place] [address] Fernando Li PA - 11/11/2017 9:21 AM [...] - 1.30 mg/dL 0.48 (L) EGFR - EQUATORIAL GUINEAN Latest Ref Range: >60 mL/min >60 EGFR NON -EQUATORIAL GUINEAN Latest Ref Range: >60 mL/min >60 GLUCOSE, [...] Patient being managed in C collar and SERVICE RIG OPERATOR. -Patient developed drainage from previous crani site [...] Spine immobilization. Cervical collar while in bed, SERVICE RIG OPERATOR when OOB anticipate duration of immobilization 12 weeks total FERNANDO LI PA-C [facility] [address] [place] [address] Pg [phone] MEDICATIONS Current Facility-Administered Medications Medication acetaminophen (TYLENOL) [...] Dysphagia, risk for aspiration #nutrition - NPO, DIRECTOR REGULATORY COMPLIANCE following - will change PEG tube feeds to nocturnal continuous for better tolerance -- 200mL/ 10 hour s # insomnia - will start melatonin - will start trazadone QHS Resolved or chronic issues/Plan: # C7 bilateral lamina fractures/ C6-T2 spinous process fractures - Neurosurgery following - Must wear SERVICE RIG OPERATOR when OOB, ok for C-collar only when [...] on placement options. Venita Pruitt PA-C [place] [phone] [facility] [place] [address] [facility] [place] [address] Associated attestation - Brian Painting MD - 11/10/2017 9:48 PM PDTAttending: I saw and examined [place] Temple ([id number]) with Venita Pruitt PA-C on 11/10/17 and agree wi th the assessment and plan as outlined in this note and participated in the planning of care . 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 Co ntinue enteral feeding via PEG due to dysphagia. Awaiting placement Brian Painting MD FACS therapist asst Division of Trauma, Critical Care & Acute [...] 71-with history of prior TBI, O[facility] 01/2017 with post op infection requiring [...] Patient being managed in C collar and SERVICE RIG OPERATOR. -Patient developed drainage from previous crani site [...] Spine immobilization. Cervical collar while in bed, SERVICE RIG OPERATOR when OOB anticipate duration of immobilization 12 weeks total Please page [phone] with any questions or concerns. Akanksha Varma MD Neurosurgery, PGY-1 Pager [phone] Venita Pruitt PA-C - 11/09/2017 9:24 AM [...] venous duplex on 11/05 negative Summary: Berlin Maverick is a 67 y.o. M w/PMH [...] Dysphagia, risk for aspiration #nutrition - NPO, DIRECTOR REGULATORY COMPLIANCE following - will change PEG tube feeds to nocturnal continuous for better tolerance -- 200mL/ 10 hour s Resolved or chronic issues/Plan: # C7 bilateral lamina fractures/ C6-T2 spinous process fractures - Neurosurgery following - Must wear SERVICE RIG OPERATOR when OOB, ok for C-collar only when [...] on placement options. Venita Pruitt PA-C P[place] [phone] [facility] [place] [address] [facility] [place] [address] Associated attestation - Magali Elias [...] Patient being managed in C collar and SERVICE RIG OPERATOR. -Patient developed drainage from previous crani site [...] Spine immobilization. Cervical collar while in bed, SERVICE RIG OPERATOR when OOB anticipate duration of immobilization 12 weeks total Please page [phone] with any questions or concerns. Akanksha Varma MD Neurosurgery, PGY-1 Pager [phone] Fernando Li PA - 11/08/2017 1:24 PM [...] - 1.30 mg/dL 0.44 (L) EGFR - EQUATORIAL GUINEAN Latest Ref Range: >60 mL/min >60 EGFR NON -EQUATORIAL GUINEAN Latest Ref Range: >60 mL/min >60 GLUCOSE, [...] [address] HEAD WO CONTRAST Order: [id number] Performed: 11/07/2017 15:43 Status: Final result Visible [...] Patient being managed in C collar and SERVICE RIG OPERATOR. -Patient developed drainage from previous crani site [...] Spine immobilization. Cervical collar while in bed, SERVICE RIG OPERATOR when OOB anticipate duration of immobilization 12 weeks total FERNANDO LI PA-C [facility] [address] [place] [address] MEDICATIONS Current Facility-Administered Medications Medication acetaminophen (TYLENOL) [...] Dysphagia, risk for aspiration #nutrition - NPO, DIRECTOR REGULATORY COMPLIANCE following - will change PEG tube feeds to nocturnal continuous for better tolerance -- 200mL/ 10 hour s Resolved or chronic issues/Plan: # C7 bilateral lamina fractures/ C6-T2 spinous process fractures - Neurosurgery following - Must wear SERVICE RIG OPERATOR when OOB, ok for C-collar only when [...] TF to nocturnal. Venita Pruitt PA-C [place] [phone] [place] [phone] [facility] [address] [place] [phone] Associated attestation - Santos Cardozo MD - 11/08/2017 12:14 PM PDTI was present and r ounded with the Advanced Practice Provider today, Venita Pruitt. I interviewed and examined t he patient. I reviewed the history, as documented today. I agree with the ASHLEY assessment a nd plan. We are adjusting his tube feeds because he doesn't tolerate a high rate. [id number] Fernando Li PA - 11/07/2017 1:01 PM [...] - 1.30 mg/dL 0.50 (L) EGFR - EQUATORIAL GUINEAN Latest Ref Range: >60 mL/min >60 EGFR NON -EQUATORIAL GUINEAN Latest Ref Range: >60 mL/min >60 GLUCOSE, [...] 70-with history of prior TBI, O[facility] R [facility] 01/2017 with post op infection requiring [...] Patient being managed in C collar and SERVICE RIG OPERATOR. -Patient developed drainage from previous crani site [...] Spine immobilization. Cervical collar while in bed, SERVICE RIG OPERATOR when OOB anticipate duration of immobilization 12 weeks total FERNANDO LI PA-C [facility] [address] [place] [address] Pg [phone] MEDICATIONS Current Facility-Administered Medications Medication acetaminophen (TYLENOL) [...] S) 8.6-50 mg 1 tablet Sherine Sarmiento [facility] - 11/07/2017 7:16 AM PDTFormatting of [...] line placed, started on TPN 10/24: PEG 6/30: Pt pulled out PICC 10/27: PICC replaced [...] Dysphagia, risk for aspiration #nutrition - NPO, DIRECTOR REGULATORY COMPLIANCE following - TFs at goal 400 mL bolus Q5 hours, continues to have some gastroparesis & residuals. Will continue to monitor Resolved or chronic issues/Plan: # C7 bilateral lamina fractures/ C6-T2 spinous process fractures - Neurosurgery following - Must wear SERVICE RIG OPERATOR when OOB, ok for C-collar only when [...] continue [place] [phone] [facility] [place] [address] [place] [address] [phone] Associated attestation - Santos Cardozo MD - 11/07/2017 2:48 PM PDTI was present and r ounded with the Advanced Practice Provider today, Sherine Sarmiento. I interviewed and e xamined the patient. I reviewed the history, as documented today. I agree with the ASHLEY ass essment and plan. He did well with his cranioplasty yesterday. He will receive ancef until his JERONIMO is out. [id number] Gurpreet Foy PA-C - 11/06/2017 8:47 AM [...] Dysphagia, risk for aspiration - NPO - DIRECTOR REGULATORY COMPLIANCE following Fluids/Electrolytes/Nutrition: No acute issues Renal: Urinary retention: -Straight cath for 450 -Flomax started Hematology: No acute issues Infectious Diseases: No acute issues Endocrinology: No acute issues Musculoskeletal/Skin: No acute issues RESOLVED ISSUES: nutrition - TFs at goal 400 mL bolus Q5 hours, tolerating C7 bilateral lamina fractures/ C6-T2 spinous process fractures - Neurosurgery following - Must wear SERVICE RIG OPERATOR when OOB, ok for C-collar only when [...] Department of Surgery Mail Code: [id number] [address] [place] [address] Associated attestation - Magali Elias MD,MPH - [...] today - Continue C-collar at all times, SERVICE RIG OPERATOR brace when OOB Please contact the Neurosurgery resident on-call pager [phone] with questions or concerns. Mary Medrano M.D., M.P.H. R2 Resident Physician Neurological Surgery Pager: [phone] Medrano MD,MPH - 11/05/2017 9:08 PM PDT [...] Please contact the Neurosurgery resident on-call pager [phone] with questions or concerns. Mary Medrano M.D., M.P.H. R2 Resident Physician Neurological Surgery Pager: [phone] Aiken MD - 11/05/2017 8:37 PM PDTDictation ID: [id number] darling PA-C - 11/05/2017 6:25 AM PDTFormatting [...] Dysphagia, risk for aspiration - NPO - DIRECTOR REGULATORY COMPLIANCE following Resolved or chronic issues/Plan: #nutrition - TFs at goal 400 mL bolus Q5 hours, tolerating # C7 bilateral lamina fractures/ C6-T2 spinous process fractures - Neurosurgery following - Must wear SERVICE RIG OPERATOR when OOB, ok for C-collar only when [...] plan for OR today for syntethic cranioplasty DIANNA CarolinaC [place] [phone] [place] [phone] [facility] [address] [place] [phone] Associated attestation - Santos Cardozo MD - 11/05/2017 1:19 PM PDTI was present and r ounded with the Advanced Practice Provider today, Venita Pruitt. I interviewed and examined t he patient. I reviewed the history, as documented today. I agree with the ASHLEY assessment a nd plan. He is undergoing cranioplasty today. [id number] Dallin Bourgeois MD - 11/04/2017 4:45 PM [...] surgery? No Dallin Bourgeois MD Neurosurgery PGY2 [id number] Moncho Wise MD - 11/04/2017 4:04 PM [...] BLE venous duplex on 10/29 negative Summary: eBrlin Temple is a 67 y.o. [...] Dysphagia, risk for aspiration - NPO - DIRECTOR REGULATORY COMPLIANCE following Resolved or chronic issues/Plan: # C7 bilateral lamina fractures/ C6-T2 spinous process fractures - Neurosurgery following - Must wear SERVICE RIG OPERATOR when OOB, ok for C-collar only when [...] with NSGY for crani . Please page [phone] with any questions or concerns. Moncho Wise MD Trauma PGY-1 Pager: [phone] [facility] [place] [address] [place] [address] Associated attestation - Santos Cardozo MD - 11/04/2017 4:48 PM PDTI was present with the resident during the history and exam. I discussed the case with the resident and agree with the findings and plan as documented in the resident s note. SANTOS CARDOZO MD [facility] [address] [place] [address] [id number] Moncho Wise MD - 11/03/2017 10:47 AM [...] Dysphagia, risk for aspiration - NPO - DIRECTOR REGULATORY COMPLIANCE following Resolved or chronic issues/Plan: # C7 bilateral lamina fractures/ C6-T2 spinous process fractures - Neurosurgery following - Must wear SERVICE RIG OPERATOR when OOB, ok for C-collar only when [...] Disposition: continue [facility]. Please page [phone] with any questions or concerns. Moncho Wise MD Trauma PGY-1 Pager: [phone] [place] [address] Associated attestation - Monster Rucker MD - 11/12/2017 12:28 PM PDTATTENDING ADDENDUM I saw and examined [place] Temple with the residents on 11/03 and agree with the assessment a nd plan as outlined in this note and participated in the planning of care. Monster Rucker MD FACS therapist asst Division of Trauma, Critical Care, and Acute Care Surgery [phone] Moncho Wise MD - 11/02/2017 4:15 PM [...] Dysphagia, risk for aspiration - NPO - DIRECTOR REGULATORY COMPLIANCE following Resolved or chronic issues/Plan: # C7 bilateral lamina fractures/ C6-T2 spinous process fractures - Neurosurgery following - Must wear SERVICE RIG OPERATOR when OOB, ok for C-collar only when [...] vs auto, tolerating tube feeds. Please page [phone] with any questions or concerns. Moncho Wise MD Trauma PGY-1 Pager: [phone] [facility] [place] [address] [place] [address] Associated attestation - Pepito Mclaughlin MD - 11/04/2017 4:31 PM PDTI saw and evaluated the p atient. I agree with the findings and the plan of care as documented in the resident s no te. Pepito Mclaughlin MD [facility] [address] [place] [address] Fernando Li PA - 11/01/2017 9:50 AM [...] - 1.30 mg/dL 0.48 (L) EGFR - EQUATORIAL GUINEAN Latest Ref Range: >60 mL/min >60 EGFR NON -EQUATORIAL GUINEAN Latest Ref Range: >60 mL/min >60 GLUCOSE, [...] voice. Oriented x 3, anisocoria-L>R-(at baseline), EO MO, face symmetric Motor: MOTOR SCORE LEFT RIGHT [...] Patient being managed in C collar and SERVICE RIG OPERATOR. -Patient developed drainage from previous crani site [...] Spine immobilization. Cervical collar while in bed, SERVICE RIG OPERATOR when OOB anticipate duration of immobilization 12 weeks total. -Plan Synthetic cranioplasty on 11/05/2017. Stereotactic Head CT-for custom cranioplasty com pleted. Plan communicated with Primary team. Instructed to anticoagulation 24 hrs pre op. Ho ld TF midnight prior. FERNANDO LI PA-C [facility] [address] [place] [place] [address] Pg [phone] MEDICATIONS Current Facility-Administered Medications Medication acetaminophen (TYLENOL) [...] Dysphagia, risk for aspiration - NPO - DIRECTOR REGULATORY COMPLIANCE following Resolved or chronic issues/Plan: # C7 bilateral lamina fractures/ C6-T2 spinous process fractures - Neurosurgery following - Must wear SERVICE RIG OPERATOR when OOB, ok for C-collar only when [...] vs auto, tolerating tube feeds. Please page [phone] with any questions or concerns. Moncho Wise MD Trauma PGY-1 Pager: [phone] [facility] [place] [address] [place] [address] Associated attestation - Shlomo Rosenthal MD - 11/06/2017 6:20 AM PDTAttending: I saw and examined Berlin Temple ([id number]) with the residents on 11/01/2017 and agree with the assessment and plan as outlined in this note and participated in the planning of care. Shlomo Rosenthal MD Insurance Professional Division of Trauma and Critical Care Filemon [...] Dysphagia, risk for aspiration - NPO - DIRECTOR REGULATORY COMPLIANCE following # Infection of cranioplasty, epidural abscess [...] fractures - Neurosurgery following - Must wear SERVICE RIG OPERATOR when OOB, ok for C-collar only when [...] vs auto, tolerating tube feeds. Please page [phone] with any questions or concerns. Filemon Christian MD Trauma PGY-1 Pager: [phone] [facility] [address] [place] [address] Associated attestation - Shlomo Rosenthal MD - 10/31/2017 10:50 AM PDTAttending: I saw and examined Berlin Temple ([id number]) with the residents on 10/31/2017 and agree with the assessment and plan as outlined in this note and participated in the planning of care. Shlomo Rosenthal MD Insurance Professional Division of Trauma and Critical Care Filemon Christian MD - 10/30/2017 10:48 AM PDTFormatting of this note may be different from t frankie troncoso. Trauma [...] Dysphagia, risk for aspiration - NPO - DIRECTOR REGULATORY COMPLIANCE following # Infection of cranioplasty, epidural abscess [...] fractures - Neurosurgery following - Must wear SERVICE RIG OPERATOR when OOB, ok for C-collar only when [...] and continue [facility] Please page [phone] with any questions or concerns. Filemon Christian MD Trauma PGY-1 Pager: [phone] [facility] [address] [place] [address] Associated attestation - Chaz Munoz MD - 11/01/2017 8:41 AM PDTI have seen and exami kassie the patient, discussed the case with the resident team, and I agree with the assessment and plan as outlined in the note. I participated in formulation of the plan for care. Chaz Munoz MD, FACS Insurance Professional, Trauma, Critical Care and Acute Care Surgery [...] Dysphagia, risk for aspiration - NPO - DIRECTOR REGULATORY COMPLIANCE following # Infection of cranioplasty, epidural abscess [...] fractures - Neurosurgery following - Must wear SERVICE RIG OPERATOR when OOB, ok for C-collar only when [...] continue [facility] Moncho Wise MD [facility] [facility] [place] [address] Associated attestation - Shlomo Rosenthal MD - 10/30/2017 9:15 AM PDTAttending: I saw and examined Berlin Temple ([id number]) with the residents on 10/29/2017 and agree with the assessment and plan as outlined in this note and participated in the planning of care. Shlomo Rosenthal MD Insurance Professional Division of Trauma and Critical Care Filemon [...] on 10/22, scheduled/pending for today Summary: Berlin Martinezwell is a 67 y.o. M w/PMH ETOH [...] Dysphagia, risk for aspiration - NPO - DIRECTOR REGULATORY COMPLIANCE following # Infection of cranioplasty, epidural abscess [...] fractures - Neurosurgery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 restraints. Venita Pruitt PA-C [place] [phone] [place] [phone] [facility] [address] [place] Pending sale to [facility] [phone] Associated attestation - Fidelina Shields MD - [...] and only enteral access. Fidelina Shields MD Hypertrichologist Division of Trauma, Critical Care and Acute Care Surgery Office: [phone] Pager: [phone] Leonor Torres ACNP - 10/03/2017 3:13 PM [...] (baseline from previous TBI ) Neck: in [place] collar Respiratory: CTA bilaterally, no distress CV: [...] p atient unable to come out fo SERVICE RIG OPERATOR for now Resolved or chronic issues/Plan: Previous [...] PDTAttending: I saw and examined Berlin Temple ([id number]) with CB Hair on morning rounds 10/03 and agree with the assessment and plan as outlined in this note and participated in the planning of care. Mental status is slightly better, remains sedated but he is interactive and at least somewh at oriented. Enteral nutrition advancing and, as approaches goal, will turn TPN off. Place ment remains a significant issue. Fidelina Shields MD Hypertrichologist Division of Trauma, Critical Care and Acute Care Surgery Office: [phone] Pager: [phone] July Banegas PA-C - 10/03/2017 12:58 PM [...] the C-collar when in bed then the SERVICE RIG OPERATOR when out of bed until 12/01/17. JULY BANEGAS PA-C [facility] [address] [place] [address] Associated attestation - Magdiel Stock MD - 10/04/2017 6:02 PM PDTI performed a history a nd physical examination of the patient and discussed the management with the advanced practi ce provider, July Banegas PA-C. I reviewed the advanced practice provider's note and agree w ith the plan of care as documented. Continue cervical collar and SERVICE RIG OPERATOR for 3 months to ensure fracture healing and prevent development of post-fracture cervical kyphosis. Magdiel Stock MD Hypertrichologist Department of Neurological Surgery [facility] [place] Torsten Sherine Madiha, AGACN - 10/02/2017 12:54 PM PDTFormatting of [...] (baseline from previous TBI ) Neck: in [place] collar Respiratory: CTA bilaterally, lungs symmetrical, equal chest wall rise, no retractions CV: RRR GI: non tender, soft, active BS, last BM 09/30 : Patient voiding without difficulty Extremities: no peripheral edema, wiggles toes and toes pink and well perfused Musculoskeletal: 5/5 retail greeter strength on right, 3/5 retail greeter strength on left FEN: on TPN, transitioning [...] AMS & delirium - numerous evaluations by DIRECTOR REGULATORY COMPLIANCE with trials of PO - now s/p [...] . - C-collar at all times, use SERVICE RIG OPERATOR when OOB - Follow-up with Neurosurgery on [...] will decrease scheduled [place]. [place]g [phone] Associated attestation - Fidelnia Shields MD - 10/02/2017 4:40 PM PDTAttending: I saw and examined Berlin Temple ([id number]) with K[facility]HAWN [facility] 10/02[facility]17 and agree with the assessment and plan as outlined in this note and partic ipated in the planning of care. DHT in place and TF advancing - with antipsychotics dosed in conjunction with psychiatry an d weaning haldol slightly. Transition keppra => depakote given potential for agitating side effects of keppra. PICC drawn back to midline position. May need termite control service representative enteral access , but is ~4 weeks s/p damage control laparotomy and risk is higher now than it will be in 7- 14 days and if swallow is not improving then will place prior to DC Fidelina Shields MD Hypertrichologist Division of Trauma, Critical Care and Acute Care Surgery Office: [phone] Pager: [phone] Sherine Sarmiento AGACNP - 10/01/2017 7:27 AM [...] (baseline from previous TBI ) Neck: in [place] collar Respiratory: CTA bilaterally, lungs symmetrical, equal chest wall rise, no retractions CV: RRR GI: non tender, soft, active BS, last BM 09/30 : Patient voiding without difficulty Extremities: no peripheral edema, wiggles toes and toes pink and well perfused Musculoskeletal: 5/5 retail greeter strength on right, 3/5 retail greeter strength on left FEN: on TPN Heme/ID: [...] AMS & delirium - numerous evaluations by DIRECTOR REGULATORY COMPLIANCE with trials of PO - now s/p modified barium swallow x2 which indicates aspiration - continue NPO - DIRECTOR REGULATORY COMPLIANCE reports that patient working on tongue strength [...] . - C-collar at all times, use SERVICE RIG OPERATOR when OOB - Follow-up with Neurosurgery on [...] trauma team and [place]g [phone] Associated attestation - Fidelina Shields MD - 10/02/2017 4:40 PM PDTAttending: I saw and examined Berlin Temple ([id number]) with KESHAWN Alexander on mornin g rounds 10/01/17 and agree with the assessment and plan as outlined in this note and partic ipated in the planning of care. Will trial DHT placement today, CT head unchanged. Suspect somnolence is medication side ef fect and, if persistent, may need to wean antipsychotic doses. Fidelina Shields MD Hypertrichologist Division of Trauma, Critical Care and Acute Care Surgery Office: [phone] Pager: [phone] Christian Kelley PA-C - 09/30/2017 12:21 PM [...] Fixed and dilated on left Neck: in [place] collar Respiratory: CTA bilaterally, lungs symmetrical, equal chest wall rise, no retractions CV: RRR GI: non tender, soft, active BS, last BM 09/30 : Patient voiding without difficulty Extremities: no peripheral edema, wiggles toes and toes pink and well perfused Musculoskeletal: 5/5 retail greeter strength on right, 3/5 retail greeter strength on left FEN: on TPN Heme/ID: [...] AMS & delirium - numerous evaluations by DIRECTOR REGULATORY COMPLIANCE with trials of PO - now s/p modified barium swallow x2 which indicates aspiration - continue NPO - DIRECTOR REGULATORY COMPLIANCE reports that patient working on tongue strength [...] . - C-collar at all times, use SERVICE RIG OPERATOR when OOB - Follow-up with Neurosurgery on [...] PDTAttending: I saw and examined Berlin Temple ([id number]) with Christian Kelley PA-C on morning rounds 09/30 and agree with the assessment and plan as outlined in this note and participated in the planning of care. Mentally slower this morning, but non-focal. Received haldol overnight for sleep. Repeat head CT was unchanged so suspect etiology of slowed responsiveness is the antipsychotic dose . DIRECTOR REGULATORY COMPLIANCE believes that, once collar off, may be able to take PO more effectively and thus will hold off on surgical feeding access. TPN is a temporary solution and if patient remains kaye nable will trial DHT tomorrow. Working with psychiatry for medication recommendations. Fidelina Shields MD Hypertrichologist Division of Trauma, Critical Care and Acute Care Surgery Office: [phone] Pager: [phone] July Banegas PA-C - 09/30/2017 8:23 AM PDTBrief Neurosurgery Wound Check: Wound is dry, without erythema, not fluctuant. No acute swelling. Nylon in place. Will plan to follow peripherally for wound checks and remove nylons on 10/09. JULY BANEGAS PA-C [facility] [address] [place] [address] Christian Kelley PA-C - 09/29/2017 7:15 AM [...] and EOMs intact to exam Neck: in [place] collar Respiratory: CTA bilaterally, lungs symmetrical, equal [...] AMS & delirium - numerous evaluations by DIRECTOR REGULATORY COMPLIANCE with trials of PO - now s/p [...] . - C-collar at all times, use SERVICE RIG OPERATOR when OOB - Follow-up with Neurosurgery on [...] PDTAttending: I saw and examined Berlin Temple ([id number]) with Christian Kelley PA-C on morning rounds 09/29 and agree with the assessment and plan as outlined in this note and participated in the planning of care. Late entry for 09/29/17. Persistent alterations in conscious and dysphagia. Hopefully with ongoing speech therapy a nd when clear to take c-collar off, will improve ability to take PO. While TPN is not an opt imal care home strategy, would prefer not to place surgical feeding tube if possible given r elatively recent damage control laparotomy and high risk of Mr. Temple pulling it out. Have tried DHT several times and it seems to worsen delirium and he pulls it out frequently. Tit ration of haldol in conjunction with psychiatry. Fidelina Shields MD Hypertrichologist Division of Trauma, Critical Care and Acute Care Surgery Office: [phone] Pager: [phone] Christian Kelley PA-C - 09/28/2017 1:01 PM [...] he said, who, ariel? And then the ORACLE ENDE[employer] CONSULTANT helped him make a call to her. [...] and EOMs intact to exam Neck: in [place] collar Respiratory: CTA bilaterally, lungs symmetrical, equal [...] very agitated today. - EKG today with Dresser QTc calculated to be 428 - optimize [...] AMS & delirium - numerous evaluations by DIRECTOR REGULATORY COMPLIANCE with trials of PO - now s/p [...] . - C-collar at all times, use SERVICE RIG OPERATOR when OOB - Follow-up with Neurosurgery on 10/21 with repeat X-rays #Blunt abdominal trauma #Splenic laceration S/p laparotomies x2. Fascia closed 09/02 Wound vac removed by patient, but wound remains duke n/dry/intact. Aledo removed 09/17. #Left hemothorax Chest tube placed [...] to communicate more toyoselin Munoz MD, FACS Hypertrichologist, Trauma, Critical Care and Acute Care Surgery Chaz Munoz MD - 09/28/2017 10:13 AM PDTTrauma Staff Seen and examined this AM with team. I have concerns abotu behaviour, as he is consistently threatening RN and ancillary staff, even attempting swings. Behavior seems worse at night. I would favor increasing night time Haldol dose, and following EKGs. Chaz Munoz MD, FACS Hypertrichologist, Trauma, Critical Care and Acute Care Surgery [...] Dallin Bourgeois MD Neurosurgery PGY1 | Pager #[phone] Christian Kelley PA-C - 09/27/2017 7:31 AM [...] able to have a linear conversation briefly DIRECTOR REGULATORY COMPLIANCE requesting repeat barium swallow Current meds: I [...] incision healing , suture c/d/I Neck: in SERVICE RIG OPERATOR Respiratory: unlabored on room air, lungs symmetrical, [...] AMS & delirium - numerous evaluations by DIRECTOR REGULATORY COMPLIANCE with trials of PO - now s/p [...] . - C-collar at all times, use SERVICE RIG OPERATOR when OOB - Follow-up with Neurosurgery on 10/21 with repeat X-rays #Blunt abdominal trauma #Splenic laceration S/p laparotomies x2. Fascia closed 09/02 Wound vac removed by patient, but wound remains duke n/dry/intact. Aledo removed 09/17. #Left hemothorax Chest tube placed [...] ous head CT/MRI imaging per NSG request CAITIE DYER-C Associated attestation - Em Cunningham [...] CUNNINGHAM MD [facility] [address] [facility] [address] [place] [address] Christian Kelley PA-C - 09/26/2017 6:48 AM [...] posterior scalp crani incision c/d/I Neck: in [place] collar Respiratory: unlabored on room air CV: [...] AMS & delirium - numerous evaluations by DIRECTOR REGULATORY COMPLIANCE with trials of PO - now s/p [...] . - C-collar at all times, use SERVICE RIG OPERATOR when OOB - Follow-up with Neurosurgery on [...] [address] [place] [address] Christian Kelley PA-C - 09/25/2017 7:49 AM [...] HEENT: EOMs intact to exam Neck: in SERVICE RIG OPERATOR brace Respiratory: unlabored on room air CV: [...] AMS & delirium - numerous evaluations by DIRECTOR REGULATORY COMPLIANCE with trials of PO - now s/p [...] . - C-collar at all times, use SERVICE RIG OPERATOR when OOB - Follow-up with Neurosurgery on [...] [address] [place] [address] Christian Kelley PA-C - 09/24/2017 11:07 AM [...] with agitation Having difficulty swallowing again - DIRECTOR REGULATORY COMPLIANCE to re-eval and obtain barium swallow Current [...] HEENT: EOMs intact to exam Neck: in SERVICE RIG OPERATOR brace Respiratory: CTA bilaterally, lungs symmetrical, equal chest wall rise, no retractions CV: RRR GI: non distended, last BM 09/23 : good urine output Extremities: SCD's in place, no peripheral edema, wiggles toes and toes pink and well perfu sed Musculoskeletal: 5/5 strength in bilateral retail greeter (but with slightly weaker on left) , [...] PRN seroquel dose QHS for insomnia/restlessness at [facility] - Haldol 5mg q12hr prn for [...] likely 2/2 AMS & delirium - Failed DIRECTOR REGULATORY COMPLIANCE eval 09/19 & 09/20, made NPO & dobhoff reinserted 09/21 but pulled overnight - Per DIRECTOR REGULATORY COMPLIANCE on 09/21, ok for therapeutic pureed with [...] . - C-collar at all times, use SERVICE RIG OPERATOR when OOB - Follow-up with Neurosurgery on 10/21 with repeat X-rays #Blunt abdominal trauma #Splenic laceration S/p laparotomies x2. Fascia closed 09/02 Wound vac removed by patient, but wound remains duke n/dry/intact. Aledo removed 09/17. #Left hemothorax Chest tube placed [...] [address] [place] [address] Ginette Campos PA-C - 09/24/2017 9:31 AM [...] 4 extremities Unable to assess drift. Motor: Energy Conservation Technician Bicep Tricep Delt R 5 5 5 [...] Campos PA-C [facility] [address] [place] [address] Pg [phone] Sherine Sarmiento, [facility] - 09/23/2017 6:32 AM PDTFormatting of [...] hiscence, draining minimal serosang fluid Neck: in SERVICE RIG OPERATOR brace Respiratory: unlabored on room air CV: [...] PRN seroquel dose QHS for insomnia/restlessness at [facility] - Repeat ECG 09/22 with QTc [...] likely 2/2 AMS & delirium - Failed DIRECTOR REGULATORY COMPLIANCE eval 09/19 & 09/20, made NPO & dobhoff reinserted 09/21 but pulled overnight - Per DIRECTOR REGULATORY COMPLIANCE on 09/21, ok for therapeutic pureed with [...] . - C-collar at all times, use SERVICE RIG OPERATOR when OOB - Follow-up with Neurosurgery on 10/21 with repeat X-rays #Blunt abdominal trauma #Splenic laceration S/p laparotomies x2. Fascia closed 09/02 Wound vac removed by patient, but wound remains duke n/dry/intact. Aledo removed 09/17. #Left hemothorax Chest tube placed [...] dysphagia & delir ium improves Sherine Sarmiento, [facility] Pg [phone] Dallin Bourgeois MD - 09/22/2017 8:03 AM [...] Dallin Bourgeois MD Neurosurgery PGY1 | Pager #[phone] Sherine Sarmiento AGACNP - 09/22/2017 6:52 AM PDTFormatting of [...] 24hr events: - Therapeutic purees initiated by DIRECTOR REGULATORY COMPLIANCE yesterday - Trickle feeds via Dobbhoff, pt pulled Dobbhoff yesterday evening- not replaced - DOOR TO DOOR SELLING AGENT called around 0 for new left facial [...] sluggish. Slight left facial droop Neck: in [place] collar Respiratory: unlabored on room air CV: [...] PRN seroquel dose QHS for insomnia/restlessness at [facility]- - Repeat ECG 09/22 with Q Tc WNL. - Haldol 5mg q12hr prn for severe agitation #Substance abuse, concern for Alcohol withdrawal - CIWA discontinued 09/08, not scoring. - Thiamine & folate started 09/21 #Dysphagia, risk for aspiration #Protein calorie malnutirtion - likely 2/2 AMS & delirium - Failed DIRECTOR REGULATORY COMPLIANCE eval 09/19 & 09/20, made NPO & dobhoff reinserted 09/21 but pulled overnight - Per DIRECTOR REGULATORY COMPLIANCE on 09/21, ok for therapeutic pureed with [...] . - C-collar at all times, use SERVICE RIG OPERATOR when OOB - Follow-up with Neurosurgery on 10/21 with repeat X-rays #Blunt abdominal trauma #Splenic laceration S/p laparotomies x2. Fascia closed 09/02 Wound vac removed by patient, but wound remains duke n/dry/intact. Aledo removed 09/17. #Left hemothorax Chest tube placed [...] when dysphagia & delirium improves Sherine Sarmiento, [facility] Pg [phone] Associated attestation - Shiva Nieto MD,MPH - [...] Trauma, Critical Care & Acute Care Surgery [facility] [phone] Sami Black - 09/21/2017 10:25 PM PDTBrief [...] in the morning. Plan: -neuro checks; page [phone] for any decline in neurological examination -pain control -Hard C collar at all times and place SERVICE RIG OPERATOR prior to mobilizing OOB. Anticipated duration of Collar/SERVICE RIG OPERATOR is 12 weeks -repeat CT head for any new decline in neurological exam and page [phone] -NPO at midnight tonight -please hold tonight's planned dose of Lovenox -further recommendations in the morning Sami Black MD, PhD PGY-3 Resident Neurosurgery [id number] estrella AGACN - 09/21/2017 7:10 AM PDTFormatting [...] Provena placem ent 24hr events: - Failed DIRECTOR REGULATORY COMPLIANCE eval again yest morning, continued NPO - [...] reactive. Dobbhoff tube in place Neck: in [place] collar Respiratory: unlabored on room air CV: [...] likely 2/2 AMS & delirium - Failed DIRECTOR REGULATORY COMPLIANCE eval 09/19 & 09/20, made NPO & dobhoff reinserted yesterday - Trickle feeds started this am at 20ml/hr, increase very slowly by 10ml every 12 hrs to go al of 75 due to hx of mesenteric hematomas and previous inability to tolerate TF - Per DIRECTOR REGULATORY COMPLIANCE today, ok for therapeutic pureed with nectar [...] . - C-collar at all times, use SERVICE RIG OPERATOR when OOB - Follow-up with Neurosurgery on 10/21 with repeat X-rays #Blunt abdominal trauma #Splenic laceration S/p laparotomies x2. Fascia closed 09/02 Wound vac removed by patient, but wound remains duke n/dry/intact. Aledo removed 09/17. #Left hemothorax Chest tube placed [...] & delirium [place]g [phone] Associated attestation - Fidelina Shields MD - 09/21/2017 9:36 PM PDTAttending: I saw and examined Berlin Temple ([id number]) with KESHAWN Alexander on mornin g rounds [...] enough to re-trial PO. Fidelina Shields MD Hypertrichologist Division of Trauma, Critical Care and Acute Care Surgery Office: [phone] Pager: [phone] Sherine Sarmiento AGACNP - 09/20/2017 7:41 AM [...] haldol given yesterday afternoon for agitation - DIRECTOR REGULATORY COMPLIANCE paged to re-eval in afternoon after concern for aspiration, made NPO by DIRECTOR REGULATORY COMPLIANCE - DARNELL SOLANO Current meds: I have [...] right pupil 3 and reactive Neck: in [place] collar Respiratory: unlabored on room air CV: [...] thick/pureed d iet. Made NPO yesterday by DIRECTOR REGULATORY COMPLIANCE after concern for aspiration. This is likely 2/2 waxing & wan ing delirium & AMS - DIRECTOR REGULATORY COMPLIANCE re-eval today recommend continue NPO d/t overt clinical signs of aspiration - Place Dobbhoff tube and restart feeds, slowly progress to goal - Stop TPN when tolerating tube feeds - DIRECTOR REGULATORY COMPLIANCE will follow closely, as his AMS improves [...] . - C-collar at all times, use SERVICE RIG OPERATOR when OOB - Follow-up with Neurosurgery on [...] & delirium [place] [phone] Associated attestation - Fidelina Shields MD - 09/20/2017 9:34 PM PDTAttending: I saw and examined Berlin Temple ([id number]) with KESHAWN Alexander on mornin g rounds [...] dispo planning when able. Fidelina Shields MD Hypertrichologist Division of Trauma, Critical Care and Acute Care Surgery Office: [phone] Pager: [phone] Mary Medrano MD,MPH - 09/19/2017 6:22 AM [...] downgraded from thin to thick liquids by DIRECTOR REGULATORY COMPLIANCE Current meds: I have independently reviewed current [...] intact, small Right fluctuant pseudomeningocele Neck: in [place] collar Respiratory: unlabored on room air CV: [...] DHT on09/19. - Cleared for diet by DIRECTOR REGULATORY COMPLIANCE, tolerating purees, 749 Calories yesterday - Restart Calorie count: if taking >700 again will be OK for full po diet, otherwise replac e DHT and restart TF - Stop TPN tomorrow regardless - Still considering repeat CT abdomen/pelvis #Dysphagia DHTreplaced overnight 09/07. TF held due to emesis and possible ileus, aspiration risk. DH T pulled overnight on 09/18 - DIRECTOR REGULATORY COMPLIANCE as able Resolved or chronic issues/Plan: #BIG 3 TBI #Right synthetic cranioplasty Neurosurgery consulted. Non-operative management. Last head CT 09/12 stable. Expected pseudo meningocele. Left-sided deficits consistent with baseline. - Stat head CT for any neurologic decline #C7 bilateral lamina fractures #C6-T2 spinous process fractures Neurosurgery consulted. Non-operative management. Upright cervical X-rays completed on 09/14 . - C-collar at all times, use SERVICE RIG OPERATOR when OOB - Follow-up with Neurosurgery on 10/21 with repeat X-rays #Blunt abdominal trauma #Splenic laceration S/p laparotomies x2. Fascia closed 09/02 Wound vac removed by patient, but wound remains duke n/dry/intact. [place] removed 09/17. #Left hemothorax Chest tube placed [...] M.D., M.P.H. Neurological Surgery Resident PGY-1 Pager: [phone] Associated attestation - Fidelina Shields MD - 09/19/2017 1:36 PM PDTAttending: I saw and examined Berlin Temple ([id number]) with the residents on morning rounds 09/19/17 and agree with the assessment and plan as outlined in this note and participated in the plan aashish of care. Improving po intake, will titrate TPN. Plan to DC TPN tomorrow and transition to PO vs PO + TF depending on calorie counts. Once of restraints will begin looking for placement. Fidelina Shields MD Hypertrichologist Division of Trauma, Critical Care and Acute Care Surgery Office: [phone] Pager: [phone] Mary Medrano MD,MPH - 09/18/2017 6:17 AM [...] fluctuant pseudomeningocele,Dobhoff tubein p lace Neck: in [place] collar Respiratory: unlabored on room air CV: [...] holding TF - Cleared for diet by DIRECTOR REGULATORY COMPLIANCE, tolerating small quantities of purees - Will need repeat CT A/P within 1-2 days #Hypervolemia I&O approaching even. Appears to have been auto-diuresing. - Continue to monitor urine output - Monitor electrolytes, replete prn #Dysphagia DHTreplaced overnight 09/07. TF held due to emesis and possible ileus, aspiration risk. - DIRECTOR REGULATORY COMPLIANCE as able #C7 bilateral lamina fractures #C6-T2 spinous process fractures Neurosurgery consulted. Non-operative management. Upright cervical X-rays completed on 09/14 . - C-collar at all times, use SERVICE RIG OPERATOR when OOB - Follow-up with Neurosurgery on [...] M.D., M.P.H. Neurological Surgery Resident PGY-1 Pager: [phone] Associated attestation - Fidelina Shields MD - 09/19/2017 3:58 PM PDTAttending: I saw and examined Berlin Temple ([id number]) with the residents on morning rounds 09/18/17 and agree with the assessment and plan as outlined in this note and participated in the plan aashish of care. Fidelina Shields MD Hypertrichologist Division of Trauma, Critical Care and Acute Care Surgery Office: [phone] Pager: [phone] Mary Medrano MD,MPH - 09/17/2017 6:26 AM [...] fluctuant pseudomeningocele,Dobhoff tubein p lace Neck: in [place] collar Respiratory: unlabored on room air CV: [...] holding TF - Cleared for diet by DIRECTOR REGULATORY COMPLIANCE, tolerating small quantities of purees #Hypervolemia I&O approaching even. Appears to have been auto-diuresing. - Continue to monitor urine output - Monitor electrolytes, replete prn #Dysphagia DHTreplaced overnight 09/07. TF held due to emesis and possible ileus, aspiration risk. - DIRECTOR REGULATORY COMPLIANCE as able #C7 bilateral lamina fractures #C6-T2 spinous process fractures Neurosurgery consulted. Non-operative management. Upright cervical X-rays completed on 09/14 . - C-collar at all times, use SERVICE RIG OPERATOR when OOB - Follow-up with Neurosurgery on [...] M.D., M.P.H. Neurological Surgery Resident PGY-1 Pager: [phone] Associated attestation - Fidelina Shields MD - 09/17/2017 2:29 PM PDTAttending: I saw and examined Berlin Temple ([id number]) with the residents on morning rounds 09/17/17 [...] repeat C T abdomen/pelvis. Fidelina Shields MD Hypertrichologist Division of Trauma, Critical Care and Acute Care Surgery Office: [phone] Pager: [phone] Venita Pruitt PA-C - 09/16/2017 6:45 AM [...] HEENT: DHT in place, CARRI Neck: in [place] collar Respiratory: CTA bilaterally, lungs symmetrical, equal [...] daily - Haldol 5mg q12hr prn - DIRECTOR REGULATORY COMPLIANCE: severe cognitive deficits - continue DIRECTOR REGULATORY COMPLIANCE therapy #Bilious emesis #Ileus #Aspiration #Leukocytosis - bilious emesis overnight, trickle tube feeds stopped; will restart tube feeds slowly this afternoon and determine tolerance - hx of ileus during hospitalization, NG removed 09/14 - Strict NPO per DIRECTOR REGULATORY COMPLIANCE - Bowel meds via DHT - TPN continued #Hypervolemia I&O approaching even. Appears to have been auto-diuresing. - Continue to monitor urine output - Monitor electrolytes, replete prn #Dysphagia DHTreplaced overnight 09/07/17. TF held for bilious vomiting last night - DIRECTOR REGULATORY COMPLIANCE as able - eval from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 PROTEIN (11/18/2017 7:45 AM) + +-------+ + | Component | Value | Ref Range | + +-------+ + | C-REACTIVE PROTEIN | <2.9 | <10.0 mg/L | + +-------+ + + + + | Specimen | Performing Laboratory | + + + | Blood | [facility], CORE [address] [place] [address] | | | [place] [address] | + + + + + | [...] | + + + | Blood | [facility] [place] [address] [place], [place] | | | [address] | + + + TRIGLYCERIDES, PLASMA (11/18/2017 7:45 AM) + +---------+ + | Component | Value | Ref Range | + +---------+ + | TRIGLYCERIDES | 162 (H) | <150 mg/dL | + +---------+ + + + + | Specimen | Performing Laboratory | + + + | Blood | [facility], CORE [address] | | | [place] [address] | + + + + + | [...] | + + + | Blood | [facility], CORE [address] [place] [address] | | | [place] [address] | + + + RENAL FUNCTION SET [...] | >60 | >60 mL/min | | EQUATORIAL GUINEAN | | | + + + + | EGFR NON | >60 | >60 mL/min | | -EQUATORIAL GUINEAN | | | + + + + [...] [facility], CORE [address] [facility] | | | [place] [address] | + + + + + | [...] | + + + | Blood | [facility], CORE [address] [place] [address] | | | [place] [address] | + + + + + | [...] Laboratory | + + + | | [facility] [address] [place] [address] | | | [place] [address] | + + + 12 LEAD ECG [...] + + | | [facility] [address] [place] [address] | | | [place] [address] | + + + CBC (HEMOGRAM) ONLY [...] | + + + | Blood | [facility], CORE [address] | | | [place] [address] | + + + + + | [...] | | ------ CBC (HEMOGRAM) | | ONLY[[id number]] Abnormal Final | | result Please view [...] Laboratory | + + + | | [facility] [address] [place] [address] | | | [place] [address] | + + + RENAL FUNCTION SET [...] | >60 | >60 mL/min | | EQUATORIAL GUINEAN | | | + + + + | EGFR NON | >60 | >60 mL/min | | -EQUATORIAL GUINEAN | | | + + + + [...] | [facility], CORE [address] | | | [place] [address] | + + + + + | [...] [facility], CORE [address] [facility] | | | [place] [address] | + + + + + | Narrative | + + | Reference range change effective 8/15/17. | + + 12 LEAD ECG (11/13/2017 [...] Laboratory | + + + | | [facility] [address] [place] [address] | | | [place] [address] | + + + MAGNESIUM, PLASMA (11/13/2017 5:47 AM) + +-------+ + | Component | Value | Ref Range | + +-------+ + | MAGNESIUM,PLASMA | 2.1 | 1.6 - 2.6 mg/dL | + +-------+ + + + + | Specimen | Performing Laboratory | + + + | Blood | [facility], CORE [address] [facility] | | | [place] [address] | + + + + + | [...] | >60 | >60 mL/min | | EQUATORIAL GUINEAN | | | + + + + | EGFR NON | >60 | >60 mL/min | | -EQUATORIAL GUINEAN | | | + + + + [...] | + + + | Blood | [facility], CORE [address] [place] [address] | | | [place] [address] | + + + + + | [...] | + + + | Urine | [facility] [address] [place], [place] | | | [address] | + + + VASC LAB VENOUS [...] Note | + + | 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, Jianshu In Interface - 11/12/2017 1:46 PM PDT [...] by: JULIO VIZCAINO | | | | 11-13-2017 11:14:26 | | + + + + + + + | Specimen | Performing Laboratory | + + + | | [facility] [address] [place] [address] | | | [place] [address] | + + + CT CHEST, ABDOMEN [...] [facility], CORE [address] [facility] | | | [place] [address] | + + + PROTEIN ELECTROPHORESIS, SERUM, [...] | + + + | Blood | [facility] [place] [address] [place], [place] | | | [address] | + + + 12 LEAD ECG [...] JULIO VIZCAINO | | | | 11-11-2017 13:02:39 | | + + + + + + + | Specimen | Performing Laboratory | + + + | | [facility] [address] [place] [address] | | | [place] [address] | + + + C-REACTIVE PROTEIN (11/11/2017 9:06 AM) + +-------+ + | Component | Value | Ref Range | + +-------+ + | C-REACTIVE PROTEIN | <2.9 | <10.0 mg/L | + +-------+ + + + + | Specimen | Performing Laboratory | + + + | Blood | [facility], CORE [address] [facility] | | | [place] [address] | + + + + + | [...] | + + + | Blood | [facility] [place] [address] [place], [place] | | | [address] | + + + TRIGLYCERIDES, PLASMA (11/11/2017 9:06 AM) + +-------+ + | Component | Value | Ref Range | + +-------+ + | TRIGLYCERIDES | 117 | <150 mg/dL | + +-------+ + + + + | Specimen | Performing Laboratory | + + + | Blood | [facility], [facility] [address] | | | [place] [address] | + + + + + | [...] [facility], CORE [address] [facility] | | | [place] [address] | + + + LIVER SET (AST,ALT,BILI [...] [facility], CORE [address] [facility] | | | [place] [address] | + + + RENAL FUNCTION SET [...] | >60 | >60 mL/min | | EQUATORIAL GUINEAN | | | + + + + | EGFR NON | >60 | >60 mL/min | | -EQUATORIAL GUINEAN | | | + + + + [...] | [facility], CORE [address] [place] [address] | | | [place] [address] | + + + + + | [...] [facility], CORE [address] [facility] | | | [place] [address] | + + + + + | [facility] [address] | | | [place] [address] | + + + + + | [...] | >60 | >60 mL/min | | EQUATORIAL GUINEAN | | | + + + + | EGFR NON | >60 | >60 mL/min | | -EQUATORIAL GUINEAN | | | + + + + [...] LABORATORY SERVICES, CORE [address] | | | [place] [address] | + + + + + | [...] Laboratory | + + + | | [facility] [address] [place] [address] | | | [place] [address] | + + + MAGNESIUM, PLASMA (11/10/2017 10:19 AM) + +-------+ + | Component | Value | Ref Range | + +-------+ + | MAGNESIUM,PLASMA | 2.0 | 1.6 - 2.6 mg/dL | + +-------+ + + + + | Specimen | Performing Laboratory | + + + | Blood | [facility], CORE [address] | | | [place] [address] | + + + + + | [...] | >60 | >60 mL/min | | EQUATORIAL GUINEAN | | | + + + + | EGFR NON | >60 | >60 mL/min | | -EQUATORIAL GUINEAN | | | + + + + [...] | Blood | [facility], CORE [address] [place] [address] | | | [place] [address] | + + + + + | [...] Blood | [facility], CORE [address] | | | [place] [address] | + + + + + | [...] | >60 | >60 mL/min | | EQUATORIAL GUINEAN | | | + + + + | EGFR NON | >60 | >60 mL/min | | -EQUATORIAL GUINEAN | | | + + + + [...] | Blood | [facility], [facility] [address] | | | [place] [address] | + + + + + | [...] calvarium which appear similar to Kiran velasquez 2016 CT. These are indeterminant. Metastatic disease [...] [facility], CORE [address] [facility] | | | [place] [address] | + + + + + | [...] | >60 | >60 mL/min | | EQUATORIAL GUINEAN | | | + + + + | EGFR NON | >60 | >60 mL/min | | -EQUATORIAL GUINEAN | | | + + + + [...] [facility], CORE [address] [facility] | | | [place] [address] | + + + + + | [...] Laboratory | + + + | | [facility] [address] [place] [address] | | | [place] [address] | + + + CT HEAD WO [...] Laboratory | + + + | | [facility] [address] [facility] | | | [place] [address] | + + + RENAL FUNCTION SET [...] | >60 | >60 mL/min | | EQUATORIAL GUINEAN | | | + + + + | EGFR NON | >60 | >60 mL/min | | -EQUATORIAL GUINEAN | | | + + + + [...] | [facility], CORE [address] [place] [address] | | | [place] [address] | + + + + + | [...] | [facility], CORE [address] [facility] | | | [place] [address] | + + + + + | [...] + + | PRODUCT UNIT # | [id number] | | + + + + | UNIT ABO | O | | + + + + | UNIT RH | POS | | + + + + | STATUS OF UNIT | Returned to Blood Bank | | + + + + | EXPIRATION DATE | [id number] | | + + + + | BLOOD TYPE BARCODE | 5100 | | + + + + | BLOOD PRODUCT CODE | [id number] | | + + + + + + + | Specimen | Performing Laboratory | + + + | | [facility], [facility]IC[facility] [address] [facility] | | | [place] [address] | + + + PRODUCT - RED CELLS LEUKOREDUCED (11/06/2017 8:03 AM) + + + + | Component | Value | Ref Range | + + + + | PRODUCT DESCRIPTION | -1 RED BLOOD CELL ADENINE-SALINE ADDED | | | | LEUKOCYTE | | + + + + | PRODUCT UNIT # | [id number] | | + + + + | UNIT ABO | O | | + + + + | UNIT RH | POS | | + + + + | STATUS OF UNIT | Returned to Blood Bank | | + + + + | EXPIRATION DATE | [id number] | | + + + + | BLOOD TYPE BARCODE | 5100 | | + + + + | BLOOD PRODUCT CODE | [id number] | | + + + + + + + | Specimen | Performing Laboratory | + + + | | [facility], TRANSF[facility]ION MEDICINE [address] [place] [address] | | | [place] [address] | + + + CBC (HEMOGRAM) ONLY [...] | + + + | Blood | [facility], CORE [address] [facility] | | | [place] [address] | + + + + + | [...] | | ------ CBC (HEMOGRAM) | | ONLY[[id number]] Abnormal Final | | result Please view [...] Blood | [facility], [facility] [address] [facility] [address] | | | [place] [address] | + + + + + | [...] | >60 | >60 mL/min | | EQUATORIAL GUINEAN | | | + + + + | EGFR NON | >60 | >60 mL/min | | -EQUATORIAL GUINEAN | | | + + + + [...] | + + + | Blood | [facility], CORE [address] [facility] | | | [place] [address] | + + + + + | [...] Attending | | Surgeon: Magdiel Stock MD Interactive Account Manager(s): Rg Aiken MD | | Preoperative Diagnoses: [...] head was placed in a horseshoe head of digital with his C-collar still | | attached [...] the incision down to the cranium. Once tolowa dee-ni' | | skull was reached circumferentially around the prior incision, a #1 [place] was used | | to subperiosteally dissect [...] note for this encounter.Sonal Nunez, | | [address]ANIEL[id number] [place], [place] | | [phone] Orina, MDJB/TAHIRLDD: 11/05/2017 20:38:01DT: 11/06/2017 | | 00:27:33Job #: [id number] | |HATTIE/MODL | | | | | | /[id number] | + + CT HEAD WO CONTRAST [...] | nursing staff. Surgeon: Magdiel Stock MD Interactive Account Manager: Rg Aiken MD | | Pre-op Diagnosis: [...] | MD Attila PGY-4 Neurological Surgery Pager [phone] | + + CAPILLARY BLOOD GLUCOSE (NO CHG), POC (11/05/2017 7:11 PM) + +---------+ + | Component | Value | Ref Range | + +---------+ + | BLOOD GLUCOSE, POC | 129 (H) | 70 - 99 mg/dL | + +---------+ + + + + | Specimen | Performing Laboratory | + + + | | [facility] [address] | | | [place] [address] | + + + CAPILLARY BLOOD GLUCOSE (NO CHG), POC (11/05/2017 1:33 PM) + +---------+ + | Component | Value | Ref Range | + +---------+ + | BLOOD GLUCOSE, POC | 103 (H) | 70 - 99 mg/dL | + +---------+ + + + + | Specimen | Performing Laboratory | + + + | | [facility] [address] | | | [place] [address] | + + + VASC LAB VENOUS [...] Blood | [facility], [address] | | | [place] [address] | + + + + + | [...] [facility], CORE [address] [facility] | | | [place] [address] | + + + + + | [...] | >60 | >60 mL/min | | EQUATORIAL GUINEAN | | | + + + + | EGFR NON | >60 | >60 mL/min | | -EQUATORIAL GUINEAN | | | + + + + [...] [facility], CORE [address] [facility] | | | [place] [address] | + + + + + | [...] | + + + | Blood | [facility], CORE [address] [facility] | | | [place] [address] | + + + + + | [...] | | ------ CBC (HEMOGRAM) | | ONLY[[id number]] Abnormal Final | | result Please view [...] + + | PRODUCT UNIT # | [id number] | | + + + + | UNIT ABO | O | | + + + + | UNIT RH | POS | | + + + + | STATUS OF UNIT | Returned to Blood Bank | | + + + + | EXPIRATION DATE | [id number] | | + + + + | BLOOD TYPE BARCODE | 5100 | | + + + + | BLOOD PRODUCT CODE | [id number] | | + + + + + + + | Specimen | Performing Laboratory | + + + | | [facility], TRANSF[facility] MEDICINE [address] [facility] [facility] | | | [place] [address] | + + + PRODUCT - RED CELLS LEUKOREDUCED (11/04/2017 8:19 PM) + + + + | Component | Value | Ref Range | + + + + | PRODUCT DESCRIPTION | -1 RED BLOOD CELL ADENINE-SALINE ADDED | | | | LEUKOCYTE | | + + + + | PRODUCT UNIT # | [id number] | | + + + + | UNIT ABO | O | | + + + + | UNIT RH | POS | | + + + + | STATUS OF UNIT | Returned to Blood Bank | | + + + + | EXPIRATION DATE | [id number] | | + + + + | BLOOD TYPE BARCODE | 5100 | | + + + + | BLOOD PRODUCT CODE | [id number] | | + + + + + + + | Specimen | Performing Laboratory | + + + | | [facility], TRANSFUSION MEDICINE [address] [facility] [facility] | | | [place] [facility] [address] | + + + CBC (HEMOGRAM) ONLY [...] | + + + | Blood | [facility], CORE [address] [facility] | | | [place] [address] | + + + + + | [...] [facility] [address] [facility] [facility] | | | [place] [address] | + + + ABO & RH [...] [facility] [address] [facility] [facility] | | | [place] [address] | + + + TYPE AND SCREEN [...] | ------ ABO & RH | | TYPE[[id number]] F | | inal result ANTIBODY | | SCREEN[[id number]] Fin | | al result Please view [...] | Blood | [facility], CORE [address] | | | [place] [address] | + + + + + | [...] | | ------ CBC (HEMOGRAM) | | ONLY[[id number]] Abnormal Final | | result Please view [...] Laboratory | + + + | | [facility] [address] [place] [address] | | | [place] [address] | + + + CALCIUM, IONIZED, WHOLE [...] | + + + | Blood | [facility], [address]ORE [address] [place] [address] | | | [place] [address] | + + + C-REACTIVE PROTEIN (11/04/2017 5:59 AM) + +-------+ + | Component | Value | Ref Range | + +-------+ + | C-REACTIVE PROTEIN | <2.9 | <10.0 mg/L | + +-------+ + + + + | Specimen | Performing Laboratory | + + + | Blood | [facility], [facility]ORE [address] [facility] | | | [place] [address] | + + + + + | [...] | + + + | Blood | [facility] [address] [place], [place] | | | [address] | + + + TRIGLYCERIDES, PLASMA (11/04/2017 5:59 AM) + +-------+ + | Component | Value | Ref Range | + +-------+ + | TRIGLYCERIDES | 111 | <150 mg/dL | + +-------+ + + + + | Specimen | Performing Laboratory | + + + | Blood | [facility], CORE [address] [facility] | | | [place] [address] | + + + + + | [...] [facility], CORE [address] | | | [place] [address] | + + + RENAL FUNCTION SET [...] | >60 | >60 mL/min | | EQUATORIAL GUINEAN | | | + + + + | EGFR NON | >60 | >60 mL/min | | -EQUATORIAL GUINEAN | | | + + + + [...] | + + + | Blood | [facility], CORE [address] [facility] [facility] | | | [place] [address] | + + + + + | [...] | Blood | [facility], CORE [address] [facility] | | | [place] [address] | + + + + + | [...] [facility], CORE [address] [facility] [facility] | | | [place] [address] | + + + + + | [...] | >60 | >60 mL/min | | EQUATORIAL GUINEAN | | | + + + + | EGFR NON | >60 | >60 mL/min | | -EQUATORIAL GUINEAN | | | + + + + [...] [facility], CORE [address] [facility] [facility] [facility] | | | [place] [address] | + + + + + | [...] [facility], CORE [address] | | | [place] [address] | + + + + + | [...] | >60 | >60 mL/min | | EQUATORIAL GUINEAN | | | + + + + | EGFR NON | >60 | >60 mL/min | | -EQUATORIAL GUINEAN | | | + + + + [...] | [facility], CORE [address] [place] [address] | | | [place] [address] | + + + + + | [...] Laboratory | + + + | | [facility] [address] [place] [address] | | | [place] [address] | + + + MAGNESIUM, PLASMA (11/01/2017 4:40 AM) + +-------+ + | Component | Value | Ref Range | + +-------+ + | MAGNESIUM,PLASMA | 2.0 | 1.6 - 2.6 mg/dL | + +-------+ + + + + | Specimen | Performing Laboratory | + + + | Blood | [facility], CORE [address] [facility] [facility] | | | [place] [address] | + + + + + | [...] | >60 | >60 mL/min | | EQUATORIAL GUINEAN | | | + + + + | EGFR NON | >60 | >60 mL/min | | -EQUATORIAL GUINEAN | | | + + + + [...] [facility], CORE [address] | | | [place] [address] | + + + + + | [...] Orta MD 10/31/2017 8:21 PM Preliminary: Gage Solomon | | 10/31/2017 8:19 PM Dictation initiated: [...] Laboratory | + + + | | [facility] [address] [place] [address] | | | [place] [address] | + + + RENAL FUNCTION SET [...] | >60 | >60 mL/min | | EQUATORIAL GUINEAN | | | + + + + | EGFR NON | >60 | >60 mL/min | | -EQUATORIAL GUINEAN | | | + + + + [...] | + + + | Blood | [facility], CORE [address] [place] [address] | | | [place] [address] | + + + + + | [...] | + + + | Blood | [facility], CORE [address] [facility] | | | [place] [address] | + + + + + | [...] [address] | | | [place] [address] | + + + MAGNESIUM, PLASMA (10/30/2017 5:29 AM) + +-------+ + | Component | Value | Ref Range | + +-------+ + | MAGNESIUM,PLASMA | 1.8 | 1.6 - 2.6 mg/dL | + +-------+ + + + + | Specimen | Performing Laboratory | + + + | Blood | [facility], CORE [address] [facility] | | | [place] [address] | + + + + + | [...] | >60 | >60 mL/min | | EQUATORIAL GUINEAN | | | + + + + | EGFR NON | >60 | >60 mL/min | | -EQUATORIAL GUINEAN | | | + + + + [...] [facility], CORE [address] [facility] [facility] | | | [place] [address] | + + + + + | [...] Note | + + | 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, Jianshu In Interface - 10/29/2017 12:13 PM PDT [...] [facility] POINT OF CARE TESTS [address] [facility] [address] | | | [place] [address] | + + + MAGNESIUM, PLASMA (10/29/2017 6:19 AM) + +-------+ + | Component | Value | Ref Range | + +-------+ + | MAGNESIUM,PLASMA | 1.9 | 1.6 - 2.6 mg/dL | + +-------+ + + + + | Specimen | Performing Laboratory | + + + | Blood | [facility], CORE [address] | | | [place] [address] | + + + + + | [...] | >60 | >60 mL/min | | EQUATORIAL GUINEAN | | | + + + + | EGFR NON | >60 | >60 mL/min | | -EQUATORIAL GUINEAN | | | + + + + [...] | [facility], CORE [address] [place] [address] | | | [place] [address] | + + + + + | [...] [address] | | | [place] [address] | + + + 12 LEAD ECG [...] Laboratory | + + + | | [facility] [address] [place] [address] | | | [place] [address] | + + + CAPILLARY BLOOD GLUCOSE [...] TESTS [address] | | | [place] [address] | + + + CAPILLARY BLOOD GLUCOSE (NO CHG), POC (10/28/2017 6:43 AM) + +---------+ + | Component | Value | Ref Range | + +---------+ + | BLOOD GLUCOSE, POC | 127 (H) | 70 - 99 mg/dL | + +---------+ + + + + | Specimen | Performing Laboratory | + + + | | [facility], POINT OF CARE TESTS [address] | | | [place] [address] | + + + C-REACTIVE PROTEIN (10/28/2017 5:29 AM) + + + + | Component | Value | Ref Range | + + + + | C-REACTIVE PROTEIN | 17.9 (H) | <10.0 mg/L | + + + + + + + | Specimen | Performing Laboratory | + + + | Blood | [facility], CORE [address] | | | [place] [address] | + + + + + | [...] | + + + | Blood | [facility] [address] [place], [place] | | | [address] | + + + TRIGLYCERIDES, PLASMA (10/28/2017 5:29 AM) + +-------+ + | Component | Value | Ref Range | + +-------+ + | TRIGLYCERIDES | 117 | <150 mg/dL | + +-------+ + + + + | Specimen | Performing Laboratory | + + + | Blood | [facility], CORE [address] | | | [place] [address] | + + + + + | [...] [facility], CORE [address] [facility] [facility] [facility] [address] [facility] | | | [place] [address] | + + + LIVER SET (AST,ALT,BILI [...] | [facility], CORE [address] [place] [address] | | | [place] [address] | + + + RENAL FUNCTION SET [...] | >60 | >60 mL/min | | EQUATORIAL GUINEAN | | | + + + + | EGFR NON | >60 | >60 mL/min | | -EQUATORIAL GUINEAN | | | + + + + [...] | Blood | [facility], CORE [address] [facility] [address] | | | [place] [address] | + + + + + | [...] | + + + | Blood | [facility], CORE [address] [place] [address] | | | [place] [address] | + + + + + | [...] Laboratory | + + + | | [facility] POINT OF CARE TESTS [address] | | | [place] [address] | + + + CAPILLARY BLOOD GLUCOSE (NO CHG), POC (10/27/2017 6:48 PM) + +---------+ + | Component | Value | Ref Range | + +---------+ + | BLOOD GLUCOSE, POC | 128 (H) | 70 - 99 mg/dL | + +---------+ + + + + | Specimen | Performing Laboratory | + + + | | [facility] [address] | | | [place] [address] | + + + CT ABDOMEN AND [...] | Narrative | + + | EXAM: PA CHEST PICC LINE CHECK HISTORY: picc done [...] Interface - 10/27/2017 6:29 PM PDT EXAM: PA CHEST | | PICC LINE CHECK HISTORY: [...] 10/27/2017 1:29 PM PICC LINE Performed by: DEISI | | DECLAN Authorized by: CHAZ MUNOZ [...] | | verifies correct patient, procedure, equipment, sales support consultant and site/side marked as | | required. [...] Brachial | | vein. Catheter lot number: [id number] with a length of 55 cm was [...] + + + | | [facility], POINT OF CARE TESTS [address] | | | [place] [address] | + + + 12 LEAD ECG [...] + + | | [facility] [address] [facility] | | | [place] [address] | + + + CAPILLARY BLOOD GLUCOSE (NO CHG), POC (10/27/2017 6:10 AM) + +-------+ + | Component | Value | Ref Range | + +-------+ + | BLOOD GLUCOSE, POC | 82 | 70 - 99 mg/dL | + +-------+ + + + + | Specimen | Performing Laboratory | + + + | | [facility], POINT OF CARE TESTS [address] | | | [place] [address] | + + + MAGNESIUM, PLASMA (10/27/2017 4:30 AM) + +-------+ + | Component | Value | Ref Range | + +-------+ + | MAGNESIUM,PLASMA | 1.9 | 1.6 - 2.6 mg/dL | + +-------+ + + + + | Specimen | Performing Laboratory | + + + | Blood | [facility], CORE [address] | | | [place] [address] | + + + + + | [...] | >60 | >60 mL/min | | EQUATORIAL GUINEAN | | | + + + + | EGFR NON | >60 | >60 mL/min | | -EQUATORIAL GUINEAN | | | + + + + [...] | + + + | Blood | [facility], CORE [address] | | | [place] [address] | + + + + + | [...] Laboratory | + + + | | [facility], POINT OF CARE TESTS [address] | | | [place] [address] | + + + CAPILLARY BLOOD GLUCOSE (NO CHG), POC (10/26/2017 11:58 AM) + +---------+ + | Component | Value | Ref Range | + +---------+ + | BLOOD GLUCOSE, POC | 110 (H) | 70 - 99 mg/dL | + +---------+ + + + + | Specimen | Performing Laboratory | + + + | | [facility] [place], POINT OF CARE TESTS [address] | | | [place] [address] | + + + CAPILLARY BLOOD GLUCOSE (NO CHG), POC (10/26/2017 5:57 AM) + +---------+ + | Component | Value | Ref Range | + +---------+ + | BLOOD GLUCOSE, POC | 102 (H) | 70 - 99 mg/dL | + +---------+ + + + + | Specimen | Performing Laboratory | + + + | | [facility], POINT OF CARE TESTS [address] [facility] [address] | | | [place] [address] | + + + MAGNESIUM, PLASMA (10/26/2017 5:13 AM) + +-------+ + | Component | Value | Ref Range | + +-------+ + | MAGNESIUM,PLASMA | 1.6 | 1.6 - 2.6 mg/dL | + +-------+ + + + + | Specimen | Performing Laboratory | + + + | Blood | [facility], CORE [address] [facility] [facility] | | | [place] [address] | + + + + + | [...] | >60 | >60 mL/min | | EQUATORIAL GUINEAN | | | + + + + | EGFR NON | >60 | >60 mL/min | | -EQUATORIAL GUINEAN | | | + + + + [...] [facility], CORE [address] [facility] [facility] | | | [place] [address] | + + + + + | [...] + + + | | [facility] [place], POINT OF CARE TESTS [address] | | | [place] [address] | + + + BASIC METABOLIC SET [...] | >60 | >60 mL/min | | EQUATORIAL GUINEAN | | | + + + + | EGFR NON | >60 | >60 mL/min | | -EQUATORIAL GUINEAN | | | + + + + [...] [facility], CORE [address] [facility] | | | [place] [address] | + + + + + | [...] + + + | | [facility] [place], POINT OF CARE TESTS [address] | | | [place] [address] | + + + 12 LEAD ECG [...] Laboratory | + + + | | [facility] [address] [place] [address] | | | [place] [address] | + + + CAPILLARY BLOOD GLUCOSE (NO CHG), POC (10/25/2017 3:35 AM) + +-------+ + | Component | Value | Ref Range | + +-------+ + | BLOOD GLUCOSE, POC | 87 | 70 - 99 mg/dL | + +-------+ + + + + | Specimen | Performing Laboratory | + + + | | [facility], [facility] [address] | | | [place] [address] | + + + 12 LEAD ECG [...] Laboratory | + + + | | [facility] [address] [place] [address] | | | [place] [address] | + + + CALCIUM, IONIZED, WHOLE [...] LABORATORY SERVICES, CORE [address] | | | [place], [place] [address] | + + + PREALBUMIN (10/24/2017 4:50 PM) + + + + | Component | Value | Ref Range | + + + + | PREALBUMIN | 14.7 (L) | 17.0 - 42.0 mg/dL | + + + + + + + | Specimen | Performing Laboratory | + + + | Blood | [facility] [place] [address] [facility], [place] | | | [address] | + + + C-REACTIVE PROTEIN (10/24/2017 4:45 PM) + + + + | Component | Value | Ref Range | + + + + | C-REACTIVE PROTEIN | 16.0 (H) | <10.0 mg/L | + + + + + + + | Specimen | Performing Laboratory | + + + | Blood | [facility] [address] [facility] | | | [place] [address] | + + + + + | [...] | [facility], CORE [address] [place] [address] RD | | | [place] [address] | + + + TRIGLYCERIDES, PLASMA (10/24/2017 4:45 PM) + +-------+ + | Component | Value | Ref Range | + +-------+ + | TRIGLYCERIDES | 93 | <150 mg/dL | + +-------+ + + + + | Specimen | Performing Laboratory | + + + | Blood | [facility], CORE [address] | | | [place] [address] | + + + + + | [...] | [facility], CORE [address] [place] [address] | | | [facility] [place] [address] | + + + ALKALINE PHOSPHATASE, PLASMA (10/24/2017 4:45 PM) + +---------+ + | Component | Value | Ref Range | + +---------+ + | ALK PHOS | 200 (H) | 56 - 119 U/L | + +---------+ + + + + | Specimen | Performing Laboratory | + + + | Blood | [facility], CORE [address] [facility] | | | [place] [address] | + + + BILIRUBIN DIRECT (10/24/2017 [...] [facility], CORE [address] [facility] | | | [place] [address] | + + + BILIRUBIN TOTAL (10/24/2017 [...] | + + + | Blood | [facility], CORE [address] [facility] [facility] | | | [place] [address] | + + + PHOSPHORUS, PLASMA (10/24/2017 4:45 PM) + +-------+ + | Component | Value | Ref Range | + +-------+ + | PHOSPHORUS, PLASMA | 3.2 | 2.4 - 4.7 mg/dL | | (LAB) | | | + +-------+ + + + + | Specimen | Performing Laboratory | + + + | Blood | [facility], CORE [address] [place] [address] | | | [facility] [place] [address] | + + + ALBUMIN, PLASMA (10/24/2017 [...] [facility], CORE [address] [facility] | | | [place] [address] | + + + MAGNESIUM, PLASMA (10/24/2017 4:45 PM) + +-------+ + | Component | Value | Ref Range | + +-------+ + | MAGNESIUM,PLASMA | 1.7 | 1.6 - 2.6 mg/dL | + +-------+ + + + + | Specimen | Performing Laboratory | + + + | Blood | [facility], CORE [address] [facility] | | | [place] [address] | + + + + + | [...] | >60 | >60 mL/min | | EQUATORIAL GUINEAN | | | + + + + | EGFR NON | >60 | >60 mL/min | | -EQUATORIAL GUINEAN | | | + + + + [...] [facility], CORE [address] [facility] | | | [place] [address] | + + + + + | [...] 10/24/2017 4:05 PM PICC LINE Performed by: JAMI, | | FARHAN Authorized by: CHAZ MUNOZ PICC/Midline Insertion Procedure Note | | Indications:TPN Procedure location: Unit:[facility] Room: 4 Providers: Attending name: | | Attending physically present: No PICC Nurse name: Nery Sosa Pre-Procedure Consent: | | written consent obtained Consent given by: Next of kin Patient identity confirmed | | per protocol: Yes Team Pause: Immediatly prior to the procedure a pause per protocol | | was called. A pause verifies correct patient, procedure, equipment, sales support consultant | | and site/side marked as required. [...] Arm area Basilic vein. Catheter lot number: [id number] with a length of 55 cm | [...] | Narrative | + + | EXAM: PA CHEST 1 VIEW HISTORY: PICC placed-pt ready. [...] Note | + + | 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, RadiYovigo Res In Interface - 10/24/2017 3:43 PM PDT EXAM: PA CHEST 1 | | VIEW HISTORY: PICC [...] 10/24/2017 3:40 PM | + + VAT: CHELE Franco/US (10/24/2017 1:56 PM) + + | Narrative [...] | + + + | | [facility], POINT OF CARE TESTS [address] | | | [place] [address] | + + + PROCEDURE NOTE (10/24/2017 [...] Surgical Critical Care, PGY7 | | Pager: [phone] | + + CAPILLARY BLOOD GLUCOSE (NO CHG), POC (10/24/2017 10:31 AM) + +-------+ + | Component | Value | Ref Range | + +-------+ + | BLOOD GLUCOSE, POC | 85 | 70 - 99 mg/dL | + +-------+ + + + + | Specimen | Performing Laboratory | + + + | | [facility], POINT OF CARE TESTS [address] | | | [place] [address] | + + + CAPILLARY BLOOD GLUCOSE [...] [address] | | | [place] [address] | + + + RENAL FUNCTION SET [...] | >60 | >60 mL/min | | EQUATORIAL GUINEAN | | | + + + + | EGFR NON | >60 | >60 mL/min | | -EQUATORIAL GUINEAN | | | + + + + [...] | + + + | Blood | [facility], CORE [address] | | | [place] [address] | + + + + + | [...] | + + + | Blood | [facility], CORE [address] [facility] | | | [place] [address] | + + + + + | [...] [address] | | | [place] [address] | + + + CBC AND AUTO [...] | + + + | Blood | [facility], CORE [address] [facility] | | | [place] [address] | + + + + + | [...] | >60 | >60 mL/min | | EQUATORIAL GUINEAN | | | + + + + | EGFR NON | >60 | >60 mL/min | | -EQUATORIAL GUINEAN | | | + + + + [...] | Blood | [facility], CORE [address] | | | [place] [address] | + + + + + | [...] | ------ CBC AND AUTO | | DIFF[[id number]] Abnormal Final | | result Please view [...] + | | [facility] [address] [place] [address] | | | [place] [address] | + + + IR GASTROSTOMY TUBE EXCHANGE (10/22/2017 2:42 PM) + + + | Specimen | Performing Laboratory | + + + | | [facility]ICE RECOGNITION | + + + + + | Narrative | + + | Procedure: Gastrostomy tube exchange Primary attending bonded structures repairer: Shade | | Bryn Goodwin Preoperative diagnosis: Malfunctioning Gastrostomy tube | | Postoperative diagnosis: Same Operations: Operation 1. Removal of existing | | Gastrostomy tube over a guide wire Operation 2. Placement of 24 English GABRIEL | | gastrostomy over guide wire [...] | | glide wire the new 24 English gastrostomy tube was inserted. The position of [...] Procedure: | | Gastrostomy tube exchangePrimary attending bonded structures repairer: Shade Goodwin | | BrynPreoperative diagnosis: Malfunctioning Gastrostomy tubePostoperative diagnosis: | | SameOperations:Operation 1. Removal of existing Gastrostomy tube over a guide | | wireOperation 2. Placement of 24 English GABRIEL gastrostomy over guide wireNo sedation was [...] glide wire the | | new 24 English gastrostomy tube was inserted. The position of [...] stiff g lide wire the new 24 English | |gastrostomy tube was inserted. The position [...] | + + | 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, Kostas [facility] In Interface - 10/22/2017 10:34 AM PDT [...] [facility] [address] [place] [address] | | | [place] [address] | + + + CT ABDOMEN AND [...] Note | + + | 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, Teliportme Res In Interface - 10/22/2017 8:06 AM [...] Dae Izaguirre MD | |Dictation initiated: Dae Iazguirre MD 10/22/2017 4:15 AM | + + [...] | [facility] SERVICES, CORE [address] [place] [address] | | | [place] [address] | + + + + + | [...] | >60 | >60 mL/min | | EQUATORIAL GUINEAN | | | + + + + | EGFR NON | >60 | >60 mL/min | | -EQUATORIAL GUINEAN | | | + + + + [...] [facility] SERVICES, CORE [address] [facility] | | | [place] [address] | + + + + + | [...] | | ------ CBC (HEMOGRAM) | | ONLY[[id number]] Abnormal Final | | result Please view [...] Laboratory | + + + | | [facility] [address] [place] [address] | | | [place] [address] | + + + RENAL FUNCTION SET [...] | >60 | >60 mL/min | | EQUATORIAL GUINEAN | | | + + + + | EGFR NON | >60 | >60 mL/min | | -EQUATORIAL GUINEAN | | | + + + + [...] | [facility], CORE [address] [place] [address] | | | [place] [address] | + + + + + | [...] | [facility], CORE [address] [facility] | | | [place] [address] | + + + + + | [...] by: JULIO VIZCAINO | | | | 10-20-2017 12:10:47 | | + + + + + + + | Specimen | Performing Laboratory | + + + | | [facility] [address] [place] [address] | | | [place] [address] | + + + MAGNESIUM, PLASMA (10/18/2017 9:01 AM) + +-------+ + | Component | Value | Ref Range | + +-------+ + | MAGNESIUM,PLASMA | 1.9 | 1.6 - 2.6 mg/dL | + +-------+ + + + + | Specimen | Performing Laboratory | + + + | Blood | [facility], CORE [address] [facility] | | | [place] [address] | + + + + + | [...] | >60 | >60 mL/min | | EQUATORIAL GUINEAN | | | + + + + | EGFR NON | >60 | >60 mL/min | | -EQUATORIAL GUINEAN | | | + + + + [...] | [facility], CORE [address] [facility] | | | [place] [address] | + + + + + | [...] Laboratory | + + + | | [facility] [address] [place] [address] | | | [place] [address] | + + + RENAL FUNCTION SET [...] | >60 | >60 mL/min | | EQUATORIAL GUINEAN | | | + + + + | EGFR NON | >60 | >60 mL/min | | -EQUATORIAL GUINEAN | | | + + + + [...] [facility], CORE [address] [facility] [facility] | | | [place] [address] | + + + + + | [...] [facility], CORE [address] | | | [place] [address] | + + + + + | [...] Laboratory | + + + | | [facility] [address] [place] [address] | | | [place] [address] | + + + BASIC METABOLIC SET [...] | >60 | >60 mL/min | | EQUATORIAL GUINEAN | | | + + + + | EGFR NON | >60 | >60 mL/min | | -EQUATORIAL GUINEAN | | | + + + + [...] | Blood | [facility] [address] | | | [place] [address] | + + + + + | [...] | [facility], CORE [address] [place] [address] | | | [place] [address] | + + + + + | [...] | | ------ CBC (HEMOGRAM) | | ONLY[[id number]] Abnormal Final | | result Please view [...] Note | + + | 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, Jianshu In Interface - 10/15/2017 3:58 PM PDT [...] Laboratory | + + + | | [facility] [address] [place] [address] | | | [place] [address] | + + + CAPILLARY BLOOD GLUCOSE (NO CHG), POC (10/15/2017 6:01 AM) + +---------+ + | Component | Value | Ref Range | + +---------+ + | BLOOD GLUCOSE, POC | 134 (H) | 70 - 99 mg/dL | + +---------+ + + + + | Specimen | Performing Laboratory | + + + | | [facility], POINT OF CARE TESTS [address] | | | [place] [address] | + + + CBC (HEMOGRAM) ONLY [...] Blood | [facility], [facility] [address] | | | [place] [address] | + + + + + | [...] | | ------ CBC (HEMOGRAM) | | ONLY[[id number]] Abnormal Final | | result Please view [...] Laboratory | + + + | | [facility], POINT OF CARE TESTS [address] | | | [place] [address] | + + + 12 LEAD ECG [...] Laboratory | + + + | | [facility] [address] [place] [address] | | | [place] [address] | + + + CBC (HEMOGRAM) ONLY [...] | [facility], CORE [address] [place] [address] RD | | | [place] [address] | + + + + + | [...] | >60 | >60 mL/min | | EQUATORIAL GUINEAN | | | + + + + | EGFR NON | >60 | >60 mL/min | | -EQUATORIAL GUINEAN | | | + + + + [...] [facility], CORE [address] | | | [place] [address] | + + + + + | [...] [facility], CORE [address] [facility] | | | [place], [place] [address] | + + + + + | [...] | | ------ CBC (HEMOGRAM) | | ONLY[[id number]] Abnormal Final | | result Please view [...] [address] | | | [place] [address] | + + + CAPILLARY BLOOD GLUCOSE [...] [address] | | | [place] [address] | + + + CBC (HEMOGRAM) ONLY [...] [facility], CORE [address] [facility] | | | [place] [address] | + + + + + | [...] | >60 | >60 mL/min | | EQUATORIAL GUINEAN | | | + + + + | EGFR NON | >60 | >60 mL/min | | -EQUATORIAL GUINEAN | | | + + + + [...] [facility], CORE [address] [facility] [facility] | | | [place] [address] | + + + + + | [...] | | ------ CBC (HEMOGRAM) | | ONLY[[id number]] Abnormal Final | | result Please view results for these tests on the | | individual orders. | + + OPERATION RECORD (10/12/2017 8:50 PM) + + | Procedure Note | + + | Pilar Cotto MD - 10/12/2017 8:50 PM PDT Date of Service: 10/12/2017 | | Attending Surgeon: Chaz Munoz MD Interactive Account Manager(s): Randell Dixon M.D., | | fellow. George [...] saline. We then | | placed a 19-English drain deep into the abscess cavity, tracking [...] 10/12/2017 19:50:06DT: 10/12/2017 20:50:54Job #: | | [id number] | + + X-RAY PORTABLE CHEST 1 VIEW (10/12/2017 7:50 PM) + + + | Specimen | Performing Laboratory | + + + | | [facility] VOICE RECOGNITION 2 | + + + + + | Narrative | + + | EXAM: PA CHEST 1 VIEW HISTORY: Evaluate endotracheal tube [...] Interface - 10/13/2017 9:04 AM PDT EXAM: PA CHEST 1 | | VIEW HISTORY: Evaluate [...] + + + | | [facility] [place], POINT OF [facility] TESTS [address] | | | [place] [address] | + + + CT ABDOMEN AND [...] [facility], CORE [address] | | | [place] [address] | + + + + + | [...] | >60 | >60 mL/min | | EQUATORIAL GUINEAN | | | + + + + | EGFR NON | >60 | >60 mL/min | | -EQUATORIAL GUINEAN | | | + + + + [...] | [facility], CORE [address] | | | [place] [address] | + + + + + | [...] | | ------ CBC (HEMOGRAM) | | ONLY[[id number]] Abnormal Final | | result Please view [...] | + + + | Blood | [facility], CORE [address] [facility] | | | [place] [address] | + + + + + | [...] Laboratory | + + + | | [facility] [address] [place] [address] | | | [place] [address] | + + + 12 LEAD ECG [...] Laboratory | + + + | | [facility] [address] [place] [address] | | | [place] [address] | + + + CBC (HEMOGRAM) ONLY [...] [facility], CORE [address] | | | [place] [address] | + + + + + | [...] | + + + | Blood | [facility], CORE [address] [facility] | | | [place] [address] | + + + + + | [...] | >60 | >60 mL/min | | EQUATORIAL GUINEAN | | | + + + + | EGFR NON | >60 | >60 mL/min | | -EQUATORIAL GUINEAN | | | + + + + [...] Blood | [facility], [facility] [address] | | | [place] [address] | + + + + + | [...] | | ------ CBC (HEMOGRAM) | | ONLY[[id number]] Abnormal Final | | result Please view results for these tests on the | | individual orders. | + + PROCEDURE NOTE (10/10/2017 10:00 PM) + + | Narrative | + + | Darius Link MD 10/12/2017 11:11 AM OPERATIVE REPORT DATE OF | | OPERATION: 10/10/2017 ATTENDING SURGEON: 1. Dr. Munoz MINISTER: 1. Darius | | MD Nikolay INDICATIONS: Dysphagia and need for care home nutrition access | | PREOPERATIVE DIAGNOSIS: 1.Dysphagia and need for care home nutrition access | | POSTOPERATIVE DIAGNOSIS: 1.Same [...] to follow. | | [place] [address] Chief Resident Neurosurgery | + + CBC [...] | [facility], CORE [address] [place] [address] | | | [place] [address] | + + + + + | [...] | | ------ CBC (HEMOGRAM) | | ONLY[[id number]] Abnormal Final | | result Please view [...] | >60 | >60 mL/min | | EQUATORIAL GUINEAN | | | + + + + | EGFR NON | >60 | >60 mL/min | | -EQUATORIAL GUINEAN | | | + + + + [...] | [facility], CORE [address] | | | [place] [address] | + + + + + | [...] [facility], CORE [address] [facility] | | | [place] [address] | + + + + + | Narrative | + + | Reference range change effective 8/15/17. | + + OPERATION RECORD (10/10/2017 12:40 PM) + + | Procedure Note | + + | Magdiel Stock MD - 10/10/2017 12:40 PM PDT Date of Service: 10/10/2017 Attending | | Surgeon: Magdiel Stock MD Interactive Account Manager(s): Cecilia Hernandez, | | . Preoperative Diagnoses: [...] the note for this encounter.Sonal Nunez MDOHSU [id number] [facility] | | [place] [phone] Orina, MDFAH/MODDIOND: | | 10/10/2017 11:52:15DT: 10/10/2017 12:40:41Job #: [id number] | | | | | |I was present for the critical portions of the procedure as described in the note for this encounter. | | | |Magdiel Stock MD | | | |Magdiel Stock MD | |[address] | |[address] [facility] | |[facility] | |[place] [address] | |[phone] | | | | | |Magdiel Stock MD | |FAH/MODL | | | | | | /[id number] | + + X-RAY ABDOMEN 1 VIEW [...] + + | Tissue - Head | [facility] [place] [address] [place], [place] | | | [address] | + + + + + | [...] + + | Swab - Head | [facility] [place] [address] [place], [place] | | | [address] | + + + + + | [...] + + | Swab - Head | [facility] [address] [place], [place] | | | [address] | + [...] + + | Swab - Head | [facility] [place] [address] [place] | | | [address] | + + + + + | Narrative | + + | Culture Report: No acid fast bacteria isolated at 6 weeks. AFB Smear: AFB not | | detected | + + CULTURE, FUNGAL EXCEPT BLOOD, SKIN, HAIR, NAIL (10/10/2017 9:00 AM) + + + | Specimen | Performing Laboratory | + + + | Swab - Head | [facility] [place] [address] [address] [place], [place] | | | [address] | + + + + + | [...] + + | Swab - Head | [facility] [address] [address] [place], [place] | | | [address] | + + + + + | [...] + + | Swab - Head | [facility] [address] [place] | | | [address] | + + + + + | [...] + + | Tissue - Head | [facility] [address] [place] [address] | | | [address] | + + + + + | [...] + + | Tissue - Head | [facility] [address] [place] [address] | | | [address] | + + + + + | [...] - Head | [facility] [place] [address] [address] [place], [place] | | | [address] | + + + + + | [...] + + | Swab - Head | [facility] [address] [place], [place] | | | [address] | + + + + + | [...] + + | Swab - Head | [facility] [address] [place], [place] | | | [address] | + + + + + | Narrative | + + | Culture Report: No acid fast bacteria isolated at 6 weeks. AFB Smear: AFB not | | detected | + + CULTURE, FUNGAL EXCEPT BLOOD, SKIN, HAIR, NAIL (10/10/2017 8:38 AM) + + + | Specimen | Performing Laboratory | + + + | Swab - Head | [facility] [place] [address] [place], [place] | | | [address] | + + + + + | [...] + + | Swab - Head | [facility] [place] [address] [place] | | | [address] | + + + + + | [...] + + | Swab - Head | [facility] [place] [address] [place], [place] | | | [address] | + + + + + | Narrative | + + | Culture Report: No acid fast bacteria isolated at 6 weeks. AFB Smear: AFB not | | detected | + + CULTURE, FUNGAL EXCEPT BLOOD, SKIN, HAIR, NAIL (10/10/2017 8:31 AM) + + + | Specimen | Performing Laboratory | + + + | Swab - Head | [facility] [place] [address] [place] [address] | | | [address] | + + + + + | [...] + + | Swab - Head | [facility] [place] [address] [place] | | | [address] | + + + + + | [...] + + | Swab - Head | [facility] [place] [address] [facility], [place] | | | [address] | + + + + + | [...] MD 10/10/2017 8:22 AM Preliminary: Shun | | MD Balaji Dictation initiated: Shun Carpio MD 10/10/2017 3:05 AM | + + + + | Procedure Note | + + | Nette Galeas, Radiant Res In Interface - 10/10/2017 8:23 [...] [facility], CORE [address] [facility] | | | [place] [address] | + + + CBC (HEMOGRAM) ONLY [...] | + + + | Blood | [facility], CORE [address] [facility] | | | [place] [address] | + + + + + | [...] | | ------ CBC (HEMOGRAM) | | ONLY[[id number]] Abnormal Final | | result Please view [...] | [facility], CORE [address] [facility] | | | [place] [address] | + + + + + | [...] | >60 | >60 mL/min | | EQUATORIAL GUINEAN | | | + + + + | EGFR NON | >60 | >60 mL/min | | -EQUATORIAL GUINEAN | | | + + + + [...] | Blood | [facility], CORE [address] [facility] | | | [facility] [place] [address] | + + + + + | [...] Laboratory | + + + | | [facility] [address] [place] [address] | | | [place] [address] | + + + PRODUCT - RED CELLS LEUKOREDUCED (10/09/2017 5:12 PM) + + + + | Component | Value | Ref Range | + + + + | PRODUCT DESCRIPTION | -1 RED BLOOD CELL ADENINE-SALINE ADDED | | | | LEUKOCYTE | | + + + + | PRODUCT UNIT # | [id number] | | + + + + | UNIT ABO | O | | + + + + | UNIT RH | POS | | + + + + | STATUS OF UNIT | Returned to Blood Bank | | + + + + | EXPIRATION DATE | [id number] | | + + + + | BLOOD TYPE BARCODE | 5100 | | + + + + | BLOOD PRODUCT CODE | [id number] | | + + + + + + + | Specimen | Performing Laboratory | + + + | | [facility], TRANSFUSION MEDICINE [address] [facility] | | | [place] [address] | + + + PRODUCT - RED CELLS LEUKOREDUCED (10/09/2017 5:12 PM) + + + + | Component | Value | Ref Range | + + + + | PRODUCT DESCRIPTION | -1 RED BLOOD CELL ADENINE-SALINE ADDED | | | | LEUKOCYTE | | + + + + | PRODUCT UNIT # | [id number] | | + + + + | UNIT ABO | O | | + + + + | UNIT RH | POS | | + + + + | STATUS OF UNIT | Returned to Blood Bank | | + + + + | EXPIRATION DATE | [phone] | | + + + + | BLOOD TYPE BARCODE | 5100 | | + + + + | BLOOD PRODUCT CODE | [id number] | | + + + + + + + | Specimen | Performing Laboratory | + + + | | [facility], TRANSFUSION MEDICINE [address] | | | [place] [address] | + + + ANTIBODY IDENTIFICATION (10/09/2017 [...] TRANSFUSION MEDICINE [address] | | | [place] [address] | + + + ANTIBODY SCREEN (10/09/2017 [...] [address] | | | [place] [address] | + + + ABO & RH [...] [facility] [address] [facility] | | | [place] [address] | + + + TYPE AND SCREEN [...] | ------ ABO & RH | | TYPE[[id number]] F | | inal result ANTIBODY | | SCREEN[[id number]] Fin | | al result Please view [...] | + + + | Blood | [facility], CORE [address] [place] [address] | | | [place] [address] | + + + + + | [...] Laboratory | + + + | | [facility] [address] [place] [address] | | | [place] [address] | + + + [facility] VENOUS DUPLEX LOWER EXTREMITY BILAT COMP (10/08/2017 10:05 AM) + + + | Specimen | Performing Laboratory | + + + | | [facility] US | + + + + [...] Note | + + | 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, Teliportme Res In Interface - 10/08/2017 10:47 AM [...] Laboratory | + + + | | [facility] [address] | | | [place] [address] | + + + CBC (HEMOGRAM) ONLY [...] [facility], CORE [address] [facility] | | | [place] [address] | + + + + + | [...] [facility], CORE [address] [facility] | | | [place] [address] | + + + + + | [...] | | ------ CBC (HEMOGRAM) | | ONLY[[id number]] Abnormal Final | | result Please view [...] | >60 | >60 mL/min | | EQUATORIAL GUINEAN | | | + + + + | EGFR NON | >60 | >60 mL/min | | -EQUATORIAL GUINEAN | | | + + + + [...] [facility], CORE [address] [facility] | | | [facility] [place] [address] | + + + + + | [...] [address] | | | [place] [address] | + + + CAPILLARY BLOOD GLUCOSE (NO CHG), POC (10/07/2017 10:30 PM) + +---------+ + | Component | Value | Ref Range | + +---------+ + | BLOOD GLUCOSE, POC | 173 (H) | 70 - 99 mg/dL | + +---------+ + + + + | Specimen | Performing Laboratory | + + + | | [facility], POINT OF CARE TESTS [address] | | | [place] [address] | + + + CAPILLARY BLOOD GLUCOSE (NO CHG), POC (10/07/2017 6:05 PM) + +---------+ + | Component | Value | Ref Range | + +---------+ + | BLOOD GLUCOSE, POC | 129 (H) | 70 - 99 mg/dL | + +---------+ + + + + | Specimen | Performing Laboratory | + + + | | [facility] [place], POINT OF CARE TESTS [address] | | | [place] [address] | + + + CAPILLARY BLOOD GLUCOSE [...] [address] | | | [place] [address] | + + + CAPILLARY BLOOD GLUCOSE (NO CHG), POC (10/07/2017 6:33 AM) + +---------+ + | Component | Value | Ref Range | + +---------+ + | BLOOD GLUCOSE, POC | 117 (H) | 70 - 99 mg/dL | + +---------+ + + + + | Specimen | Performing Laboratory | + + + | | [facility] [place] [place], POINT OF CARE TESTS [address] | | | [place] [address] | + + + CBC (HEMOGRAM) ONLY [...] | Blood | [facility], CORE [address] [facility] | | | [place] [address] | + + + + + | [...] [facility], CORE [address] [facility] | | | [place] [address] | + + + + + | [...] | | ------ CBC (HEMOGRAM) | | ONLY[[id number]] Abnormal Final | | result Please view [...] | >60 | >60 mL/min | | EQUATORIAL GUINEAN | | | + + + + | EGFR NON | >60 | >60 mL/min | | -EQUATORIAL GUINEAN | | | + + + + [...] | Blood | [facility], CORE [address] [facility] | | | [place] [address] | + + + + + | [...] Laboratory | + + + | | [facility], POINT OF CARE TESTS [address] | | | [place] [address] | + + + CAPILLARY BLOOD GLUCOSE (NO CHG), POC (10/06/2017 6:03 PM) + +---------+ + | Component | Value | Ref Range | + +---------+ + | BLOOD GLUCOSE, POC | 107 (H) | 70 - 99 mg/dL | + +---------+ + + + + | Specimen | Performing Laboratory | + + + | | [facility], POINT OF CARE TESTS [address] | | | [place] [address] | + + + 12 LEAD ECG [...] | | [facility] [address] [facility] | | | [place] [address] | + + + CAPILLARY BLOOD GLUCOSE [...] [address] | | | [place] [address] | + + + CBC (HEMOGRAM) ONLY [...] [facility], CORE [address] [facility] | | | [place] [address] | + + + + + | [...] [facility], CORE [address] [facility] | | | [place] [address] | + + + + + | [...] | | ------ CBC (HEMOGRAM) | | ONLY[[id number]] Abnormal Final | | result Please view [...] | >60 | >60 mL/min | | EQUATORIAL GUINEAN | | | + + + + | EGFR NON | >60 | >60 mL/min | | -EQUATORIAL GUINEAN | | | + + + + [...] [facility], CORE [address] | | | [place] [address] | + + + + + | [...] + + + | | [facility] [place], POINT OF CARE TESTS [address] | | | [place] [address] | + + + CAPILLARY BLOOD GLUCOSE (NO CHG), POC (10/06/2017 1:04 AM) + +-------+ + | Component | Value | Ref Range | + +-------+ + | BLOOD GLUCOSE, POC | 91 | 70 - 99 mg/dL | + +-------+ + + + + | Specimen | Performing Laboratory | + + + | | [facility] [place], POINT OF CARE TESTS [address] | | | [place] [address] | + + + CAPILLARY BLOOD GLUCOSE (NO CHG), POC (10/05/2017 6:43 PM) + +---------+ + | Component | Value | Ref Range | + +---------+ + | BLOOD GLUCOSE, POC | 118 (H) | 70 - 99 mg/dL | + +---------+ + + + + | Specimen | Performing Laboratory | + + + | | [facility] [place], POINT OF CARE TESTS [address] | | | [place] [address] | + + + CAPILLARY BLOOD GLUCOSE [...] TESTS [address] | | | [place] [address] | + + + 12 LEAD ECG [...] Laboratory | + + + | | [facility] [address] [place] [address] | | | [place] [address] | + + + CBC (HEMOGRAM) ONLY [...] | Blood | [facility], CORE [address] [facility] | | | [place] [address] | + + + + + | [...] | + + + | Blood | [facility], CORE [address] | | | [place] [address] | + + + + + | [...] | | ------ CBC (HEMOGRAM) | | ONLY[[id number]] Abnormal Final | | result Please view [...] | >60 | >60 mL/min | | EQUATORIAL GUINEAN | | | + + + + | EGFR NON | >60 | >60 mL/min | | -EQUATORIAL GUINEAN | | | + + + + [...] | Blood | [facility], [facility] [address] | | | [place] [address] | + + + + + | [...] | + + + | | [facility], POINT OF CARE TESTS [address] | | | [place] [address] | + + + CAPILLARY BLOOD GLUCOSE [...] [address] | | | [place] [address] | + + + CAPILLARY BLOOD GLUCOSE (NO CHG), POC (10/04/2017 5:47 PM) + +---------+ + | Component | Value | Ref Range | + +---------+ + | BLOOD GLUCOSE, POC | 123 (H) | 70 - 99 mg/dL | + +---------+ + + + + | Specimen | Performing Laboratory | + + + | | [facility], POINT OF CARE TESTS [address] | | | [place] [address] | + + + CAPILLARY BLOOD GLUCOSE (NO CHG), POC (10/04/2017 12:30 PM) + +---------+ + | Component | Value | Ref Range | + +---------+ + | BLOOD GLUCOSE, POC | 137 (H) | 70 - 99 mg/dL | + +---------+ + + + + | Specimen | Performing Laboratory | + + + | | [facility] [place], POINT OF CARE TESTS [address] | | | [place] [address] | + + + CAPILLARY BLOOD GLUCOSE (NO CHG), POC (10/04/2017 5:55 AM) + +---------+ + | Component | Value | Ref Range | + +---------+ + | BLOOD GLUCOSE, POC | 128 (H) | 70 - 99 mg/dL | + +---------+ + + + + | Specimen | Performing Laboratory | + + + | | [facility], POINT OF CARE TESTS [address] | | | [place] [address] | + + + CBC (HEMOGRAM) ONLY [...] [facility], CORE [address] [facility] | | | [place] [address] | + + + + + | [...] | Blood | [facility], CORE [address] | | | [place] [address] | + + + + + | [...] | | ------ CBC (HEMOGRAM) | | ONLY[[id number]] Abnormal Final | | result Please view [...] | >60 | >60 mL/min | | EQUATORIAL GUINEAN | | | + + + + | EGFR NON | >60 | >60 mL/min | | -EQUATORIAL GUINEAN | | | + + + + [...] | Blood | [facility], [facility] [address] | | | [place] [address] | + + + + + | [...] Laboratory | + + + | | [facility], POINT OF CARE TESTS [address] | | | [place] [address] | + + + CAPILLARY BLOOD GLUCOSE [...] [address] | | | [place] [address] | + + + URINE, MICROSCOPIC EXAM [...] Clean catch | [facility], CORE [address] [place] [address] RD | | | [place] [address] | + + + RPR SERUM (10/03/2017 3:36 PM) + + + + | Component | Value | Ref Range | + + + + | RPR SRM QUAL | Non ReactiveComment: Rapid Plasma Reagin | Non Reactive | | | screening test is Non-Reactive. No further | | | | reflex testing is required.Performed by | | | | [facility],[address] [place] [address] | | | | [id number] tde.[employer] | | | | MD Arcadio, Lab. Director | | | |www.[employer] In, Gui Ervin MD, Lab. Director | | + + + + + + + | Specimen | Performing Laboratory | + + + | Blood | [facility] [address] [facility] | | | [place] [address] | + + + VITAMIN B-12 (10/03/2017 [...] [facility], CORE [address] [facility] | | | [place] [address] | + + + TSH (10/03/2017 3:36 PM) + + + + | Component | Value | Ref Range | + + + + | TSH | 0.33 (L) | 0.46 - 5.56 mIU/L | + + + + + + + | Specimen | Performing Laboratory | + + + | Blood | [facility], [address] [address] [facility] | | | [place] [address] | + + + + + | [...] | [facility], SPECIAL IMM + [place] [address] | | | [place] [address] | + + + + + | Narrative | + + | HIV-1 p24 Ag and HIV-1,2 Ab not detected. Test modified from original | | cattle farmer's approved specifications. The performance of the PANTOGRAPHER HIV Combo | | test, with or [...] [address] | | | [place] [address] | + + + CAPILLARY BLOOD GLUCOSE [...] [address] | | | [place] [address] | + + + CBC (HEMOGRAM) ONLY [...] [facility] [address] | | | [facility] [place] [address] | + + + + + | [...] | Blood | [facility], CORE [address] [place] [address] | | | [place] [address] | + + + + + | [...] | | ------ CBC (HEMOGRAM) | | ONLY[[id number]] Abnormal Final | | result Please view [...] | >60 | >60 mL/min | | EQUATORIAL GUINEAN | | | + + + + | EGFR NON | >60 | >60 mL/min | | -EQUATORIAL GUINEAN | | | + + + + [...] [facility], [address] [facility] [facility] | | | [place] [address] | + + + + + | [...] [address] | | | [place] [address] | + + + X-RAY SPINE CERVICAL [...] [address] | | | [place] [address] | + + + 12 LEAD ECG [...] Laboratory | + + + | | [facility] [address] [place] [address] | | | [place] [address] | + + + PROCEDURE NOTE (10/02/2017 [...] | Narrative | + + | EXAM: PA CHEST 1 VIEW HISTORY: Evaluate PICC placement [...] Interface - 10/02/2017 2:07 PM PDT EXAM: PA CHEST 1 | | VIEW HISTORY: Evaluate [...] [address] | | | [place] [address] | + + + X-RAY PORTABLE CHEST 1 VIEW (10/02/2017 8:56 AM) + + + | Specimen | Performing Laboratory | + + + | | [facility] VOICE RECOGNITION 2 | + + + + + | Narrative | + + | EXAM: PA CHEST 1 VIEW HISTORY: new leukocytosis, eval [...] Interface - 10/02/2017 10:27 AM PDT EXAM: PA CHEST 1 | | VIEW HISTORY: new [...] Laboratory | + + + | | [facility], POINT OF CARE TESTS [address] | | | [place] [address] | + + + CBC (HEMOGRAM) ONLY [...] Blood | [facility], [facility] [address] | | | [place] [address] | + + + + + | [...] | + + + | Blood | [facility], CORE [address] | | | [place] [address] | + + + + + | [...] | | ------ CBC (HEMOGRAM) | | ONLY[[id number]] Abnormal Final | | result Please view [...] | >60 | >60 mL/min | | EQUATORIAL GUINEAN | | | + + + + | EGFR NON | >60 | >60 mL/min | | -EQUATORIAL GUINEAN | | | + + + + [...] [facility], CORE [address] | | | [place] [address] | + + + + + | [...] | + + + | | [facility], POINT OF [facility] TESTS [address] | | | [place] [address] | + + + CAPILLARY BLOOD GLUCOSE [...] [address] | | | [place] [address] | + + + X-RAY ABD LTD [...] [address] | | | [place] [address] | + + + VASC LAB VENOUS [...] Note | + + | 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, Jianshu In Interface - 10/01/2017 11:34 AM PDT [...] Laboratory | + + + | | [facility], POINT OF CARE TESTS [address] | | | [place] [address] | + + + CBC (HEMOGRAM) ONLY [...] [facility], CORE [address] | | | [place] [address] | + + + + + | [...] | + + + | Blood | [facility], CORE [address] | | | [place] [address] | + + + + + | Narrative | + + | Reference range change effective 8/15/17. | + + CBC ONLY (10/01/2017 5:25 AM) + + + | Specimen | Performing Laboratory | + + + | Blood | | + + + + + | Narrative | + + | The following orders were created for panel order CBC ONLY. | | Procedure | | Abnormality Status | | --------- | | ------ CBC (HEMOGRAM) | | ONLY[[id number]] Abnormal Final | | result Please view [...] | >60 | >60 mL/min | | EQUATORIAL GUINEAN | | | + + + + | EGFR NON | >60 | >60 mL/min | | -EQUATORIAL GUINEAN | | | + + + + [...] | [facility], CORE [address] | | | [place] [address] | + + + + + | [...] [address] | | | [place] [address] | + + + CAPILLARY BLOOD GLUCOSE [...] [address] | | | [place] [address] | + + + 12 LEAD ECG [...] + | | [facility] [address] [place] [address] | | | [place] [address] | + + + CT HEAD WO [...] MD 09/30/2017 1:27 PM | |Preliminary: Ajay tSout MD | |Dictation initiated: Ajay Stout MD [...] [address] | | | [place] [address] | + + + CAPILLARY BLOOD GLUCOSE (NO CHG), POC (09/30/2017 6:26 AM) + +---------+ + | Component | Value | Ref Range | + +---------+ + | BLOOD GLUCOSE, POC | 151 (H) | 70 - 99 mg/dL | + +---------+ + + + + | Specimen | Performing Laboratory | + + + | | [facility], POINT OF CARE TESTS [address] | | | [place] [address] | + + + CBC (HEMOGRAM) ONLY [...] | Blood | [facility], [facility] [address] | | | [place] [address] | + + + + + | [...] | + + + | Blood | [facility], CORE [address] | | | [facility] [place] [place] [address] | + + + + + | [...] | | ------ CBC (HEMOGRAM) | | ONLY[[id number]] Abnormal Final | | result Please view [...] | >60 | >60 mL/min | | EQUATORIAL GUINEAN | | | + + + + | EGFR NON | >60 | >60 mL/min | | -EQUATORIAL GUINEAN | | | + + + + [...] LABORATORY SERVICES, CORE [address] | | | [place] [address] | + + + + + | [...] Laboratory | + + + | | [facility], POINT OF CARE TESTS [address] | | | [place] [address] | + + + CAPILLARY BLOOD GLUCOSE (NO CHG), POC (09/29/2017 5:53 PM) + +---------+ + | Component | Value | Ref Range | + +---------+ + | BLOOD GLUCOSE, POC | 124 (H) | 70 - 99 mg/dL | + +---------+ + + + + | Specimen | Performing Laboratory | + + + | | [facility] POINT OF CARE TESTS [address] | | | [place] [address] | + + + CAPILLARY BLOOD GLUCOSE [...] [address] | | | [place] [address] | + + + 12 LEAD ECG [...] [facility] [address] [place] [address] | | | [place] [address] | + + + CAPILLARY BLOOD GLUCOSE [...] [address] | | | [place] [address] | + + + MAGNESIUM, PLASMA (09/29/2017 4:30 AM) + +-------+ + | Component | Value | Ref Range | + +-------+ + | MAGNESIUM,PLASMA | 2.1 | 1.6 - 2.6 mg/dL | + +-------+ + + + + | Specimen | Performing Laboratory | + + + | Blood | [facility], CORE [address] [place] [address] | | | [place] [address] | + + + + + | [...] | >60 | >60 mL/min | | EQUATORIAL GUINEAN | | | + + + + | EGFR NON | >60 | >60 mL/min | | -EQUATORIAL GUINEAN | | | + + + + [...] [facility], CORE [address] | | | [place] [address] | + + + + + | [...] | + + + | Blood | [facility], CORE [address] | | | [place] [address] | + + + + + | [...] | | ------ CBC (HEMOGRAM) | | ONLY[[id number]] Abnormal Final | | result Please view [...] Laboratory | + + + | | [facility], POINT OF CARE TESTS [address] | | | [place] [address] | + + + CAPILLARY BLOOD GLUCOSE (NO CHG), POC (09/28/2017 5:26 PM) + +---------+ + | Component | Value | Ref Range | + +---------+ + | BLOOD GLUCOSE, POC | 112 (H) | 70 - 99 mg/dL | + +---------+ + + + + | Specimen | Performing Laboratory | + + + | | [facility], POINT OF [facility] TESTS [address] | | | [place] [address] | + + + CAPILLARY BLOOD GLUCOSE (NO CHG), POC (09/28/2017 1:24 PM) + +---------+ + | Component | Value | Ref Range | + +---------+ + | BLOOD GLUCOSE, POC | 100 (H) | 70 - 99 mg/dL | + +---------+ + + + + | Specimen | Performing Laboratory | + + + | | [facility], POINT OF CARE TESTS [address] | | | [place] [address] | + + + 12 LEAD ECG [...] Laboratory | + + + | | [facility] [address] [place] [address] | | | [place] [address] | + + + CAPILLARY BLOOD GLUCOSE [...] [address] | | | [place] [address] | + + + CBC (HEMOGRAM) ONLY [...] | Blood | [facility], CORE [address] | | | [place] [address] | + + + + + | [...] [facility], CORE [address] | | | [place] [address] | + + + + + | Narrative | + + | Reference range change effective 8/15/17. | + + CBC ONLY (09/28/2017 4:58 AM) + + + | Specimen | Performing Laboratory | + + + | Blood | | + + + + + | Narrative | + + | The following orders were created for panel order CBC ONLY. | | Procedure | | Abnormality Status | | --------- | | ------ CBC (HEMOGRAM) | | ONLY[[id number]] Abnormal Final | | result Please view [...] | >60 | >60 mL/min | | EQUATORIAL GUINEAN | | | + + + + | EGFR NON | >60 | >60 mL/min | | -EQUATORIAL GUINEAN | | | + + + + [...] [facility], CORE [address] | | | [place] [address] | + + + + + | [...] [address] | | | [place] [address] | + + + CAPILLARY BLOOD GLUCOSE (NO CHG), POC (09/27/2017 6:25 PM) + +---------+ + | Component | Value | Ref Range | + +---------+ + | BLOOD GLUCOSE, POC | 100 (H) | 70 - 99 mg/dL | + +---------+ + + + + | Specimen | Performing Laboratory | + + + | | [facility] POINT OF [facility] TEST[facility] [address] | | | [place] [address] | + + + MODIFIED BARIUM SWALLOWING [...] cleared with dry swallows. Please see sp ch pathology report for full details | | [...] + | | [facility] POINT OF [facility] TESTS [address] | | | [place] [address] | + + + CAPILLARY BLOOD GLUCOSE [...] [facility], POINT OF CARE TESTS [address] | | | [facility] [place] [address] | + + + CBC (HEMOGRAM) ONLY [...] [facility], CORE [address] | | | [place] [address] | + + + + + | [...] | | ------ CBC (HEMOGRAM) | | ONLY[[id number]] Abnormal Final | | result Please view [...] [address] | | | [place] [address] | + + + + + | [...] | >60 | >60 mL/min | | EQUATORIAL GUINEAN | | | + + + + | EGFR NON | >60 | >60 mL/min | | -EQUATORIAL GUINEAN | | | + + + + [...] | + + + | Blood | [facility], CORE [address] | | | [place] [address] | + + + + + | [...] + + + | | [facility], POINT OF CARE TESTS [address] | | | [place] [address] | + + + CAPILLARY BLOOD GLUCOSE [...] [address] | | | [place] [address] | + + + 12 LEAD ECG [...] Laboratory | + + + | | [facility] [address] [place] [address] | | | [place] [address] | + + + CAPILLARY BLOOD GLUCOSE [...] [address] | | | [place] [address] | + + + CAPILLARY BLOOD GLUCOSE [...] [address] | | | [place] [address] | + + + CAPILLARY BLOOD GLUCOSE [...] [address] | | | [place] [address] | + + + CBC (HEMOGRAM) ONLY [...] | + + + | Blood | [facility], CORE [address] | | | [place] [address] | + + + + + | [...] [facility], CORE [address] | | | [place] [address] | + + + + + | [...] | | ------ CBC (HEMOGRAM) | | ONLY[[id number]] Abnormal Final | | result Please view [...] | >60 | >60 mL/min | | EQUATORIAL GUINEAN | | | + + + + | EGFR NON | >60 | >60 mL/min | | -EQUATORIAL GUINEAN | | | + + + + [...] [facility], CORE [address] | | | [place] [address] | + + + + + | [...] Laboratory | + + + | | [facility], POINT OF CARE TESTS [address] | | | [place] [address] | + + + MRI BRAIN WWO [...] [address] | | | [place] [address] | + + + + + | [...] | [facility], CORE [address] [place] [address] | | | [place] [address] | + + + + + | [...] | | ------ CBC (HEMOGRAM) | | ONLY[[id number]] Abnormal Final | | result Please view [...] | >60 | >60 mL/min | | EQUATORIAL GUINEAN | | | + + + + | EGFR NON | >60 | >60 mL/min | | -EQUATORIAL GUINEAN | | | + + + + [...] [facility], CORE [address] | | | [place] [address] | + + + + + | [...] Laboratory | + + + | | [facility] [address] [facility] | | | [place] [address] | + + + MODIFIED BARIUM SWALLOWING (09/24/2017 12:50 PM) + + + | Specimen | Performing Laboratory | + + + | | [facility] VOICE RECOGNITION 2 | + + + [...] [facility], CORE [address] | | | [place] [address] | + + + + + | [...] | >60 | >60 mL/min | | EQUATORIAL GUINEAN | | | + + + + | EGFR NON | >60 | >60 mL/min | | -EQUATORIAL GUINEAN | | | + + + + [...] | [facility], CORE [address] [place] [address] | | | [place] [address] | + + + + + | [...] [facility], CORE [address] | | | [place] [address] | + + + + + | [...] | | ------ CBC (HEMOGRAM) | | ONLY[[id number]] Abnormal Final | | result Please view [...] | + + + | Blood | [facility], CORE [address] [place] [address] | | | [place] [address] | + + + + + | [...] | Blood | [facility], CORE [address] | | | [place] [address] | + + + + + | [...] | | ------ CBC (HEMOGRAM) | | ONLY[[id number]] Abnormal Final | | result Please view [...] | >60 | >60 mL/min | | EQUATORIAL GUINEAN | | | + + + + | EGFR NON | >60 | >60 mL/min | | -EQUATORIAL GUINEAN | | | + + + + [...] | [facility], CORE [address] [place] [address] | | | [place] [address] | + + + + + | [...] + + | | [facility], POINT OF CARE TESTS [address] | | | [place] [address] | + + + CAPILLARY BLOOD GLUCOSE (NO CHG), POC (09/22/2017 1:29 PM) + +---------+ + | Component | Value | Ref Range | + +---------+ + | BLOOD GLUCOSE, POC | 113 (H) | 70 - 99 mg/dL | + +---------+ + + + + | Specimen | Performing Laboratory | + + + | | [facility], POINT OF CARE TESTS [address] | | | [place] [address] | + + + CT HEAD WO [...] [facility], CORE [address] [address] | | | [place] [address] | + + + 12 LEAD ECG [...] Laboratory | + + + | | [facility] [address] [place] [address] | | | [place] [address] | + + + CBC (HEMOGRAM) ONLY [...] | [facility], CORE [address] | | | [place] [address] | + + + + + | [...] | + + + | Blood | [facility], CORE [address] | | | [place] [address] | + + + + + | [...] | | ------ CBC (HEMOGRAM) | | ONLY[[id number]] Abnormal Final | | result Please view [...] | >60 | >60 mL/min | | EQUATORIAL GUINEAN | | | + + + + | EGFR NON | >60 | >60 mL/min | | -EQUATORIAL GUINEAN | | | + + + + [...] [facility], CORE [address] | | | [place] [address] | + + + + + | [...] [address] | | | [place] [address] | + + + CT HEAD WO [...] now presented. Final | | signature: Navjot Otra MD 09/22/2017 8:40 AM Preliminary: Gurpreet Taylor [...] | + + + | Blood | [facility], CORE [address] | | | [facility] [place] [address] | + + + + + | [...] [facility], CORE [address] | | | [place] [address] | + + + + + | [...] | | ------ CBC (HEMOGRAM) | | ONLY[[id number]] Abnormal Final | | result Please view [...] | >60 | >60 mL/min | | EQUATORIAL GUINEAN | | | + + + + | EGFR NON | >60 | >60 mL/min | | -EQUATORIAL GUINEAN | | | + + + + [...] | [facility], CORE [address] [place] [address] | | | [place], [place] [address] | + + + + + | [...] Yeager MD 09/20/2017 7:48 PM Preliminary: Mega Wen | | MD Toy | + + + + | Procedure Note | + + | 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, Teliportme Res In Interface - 09/20/2017 7:50 PM [...] presented. | | | |Final signature: Mega Yaeger MD 09/20/2017 7:48 PM | |Preliminary: Mega [...] Yeager MD 09/20/2017 6:24 PM Preliminary: Mega Wen | Prabhakar Yeager MD | + + + + | Procedure Note | + + | 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, RadiYovigo Res In Interface - 09/20/2017 6:25 PM [...] fundus of the stomach, coiled with tip gwendolyn espinoza and in the direction of the GE [...] Yeager MD 09/20/2017 6:25 PM Preliminary: Mega Wen | | MD Toy | + + + + | Procedure Note | + + | 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, Jianshu In Interface - 09/20/2017 6:26 PM PDT [...] Note | + + | 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, Jianshu In Interface - 09/20/2017 5:17 PM PDT [...] Laboratory | + + + | | [facility] [address] [place] [address] | | | [place] [address] | + + + CBC (HEMOGRAM) ONLY [...] | Blood | [facility] [address] | | | [place] [address] | + + + + + | [...] | + + + | Blood | [facility], CORE [address] | | | [facility] [place] [place] [address] | + + + + + | [...] | | ------ CBC (HEMOGRAM) | | ONLY[[id number]] Abnormal Final | | result Please view [...] | >60 | >60 mL/min | | EQUATORIAL GUINEAN | | | + + + + | EGFR NON | >60 | >60 mL/min | | -EQUATORIAL GUINEAN | | | + + + + [...] [facility], CORE [address] | | | [place] [address] | + + + + + | [...] | Blood | [facility], CORE [address] | | | [place] [address] | + + + + + | [...] | [facility], CORE [address] [place] [address] | | | [place] [address] | + + + + + | [...] | | ------ CBC (HEMOGRAM) | | ONLY[[id number]] Abnormal Final | | result Please view [...] | >60 | >60 mL/min | | EQUATORIAL GUINEAN | | | + + + + | EGFR NON | >60 | >60 mL/min | | -EQUATORIAL GUINEAN | | | + + + + [...] [facility], CORE [address] | | | [place] [address] | + + + + + | [...] | + + + | Blood | [facility], CORE [address] | | | [place] [address] | + + + + + | [...] | [facility], CORE [address] | | | [place] [address] | + + + + + | [...] | | ------ CBC (HEMOGRAM) | | ONLY[[id number]] Abnormal Final | | result Please view [...] | >60 | >60 mL/min | | EQUATORIAL GUINEAN | | | + + + + | EGFR NON | >60 | >60 mL/min | | -EQUATORIAL GUINEAN | | | + + + + [...] | + + + | Blood | [facility], CORE [address] | | | [place] [address] | + + + + + | [...] [facility], CORE [address] | | | [place] [address] | + + + + + | [...] | + + + | Blood | [facility], [facility] [address] | | | [place] [address] | + + + + + | [...] | | ------ CBC (HEMOGRAM) | | ONLY[[id number]] Abnormal Final | | result Please view [...] | >60 | >60 mL/min | | EQUATORIAL GUINEAN | | | + + + + | EGFR NON | >60 | >60 mL/min | | -EQUATORIAL GUINEAN | | | + + + + [...] Blood | [facility], [facility] [address] | | | [place] [address] | + + + + + | [...] | Narrative | + + | EXAM: PA CHEST PICC LINE CHECK HISTORY: PICC placement [...] Note | + + | 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, Teliportme Res In Interface - 09/16/2017 1:34 PM PDT EXAM: PA CHEST | | PICC LINE CHECK HISTORY: [...] | Narrative | + + | EXAM: PA CHEST PICC LINE CHECK HISTORY: Evaluate PICC [...] results were discussed with the patient's nurse, Adiranna, at the time of dictation. | | I have personally reviewed the images and, if necessary, edited the report. I | | agree with the report as now presented. | + + + + | Procedure Note | + + | 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, Teliportme Res In Interface - 09/16/2017 11:41 AM PDT EXAM: PA CHEST | | PICC LINE CHECK HISTORY: [...] [facility], CORE [address] | | | [place] [address] | + + + + + | [...] [facility], CORE [address] | | | [place] [address] | + + + + + | [...] | | ------ CBC (HEMOGRAM) | | ONLY[[id number]] Abnormal Final | | result Please view [...] | >60 | >60 mL/min | | EQUATORIAL GUINEAN | | | + + + + | EGFR NON | >60 | >60 mL/min | | -EQUATORIAL GUINEAN | | | + + + + [...] [facility], CORE [address] | | | [place] [address] | + + + + + | [...] | Narrative | + + | EXAM: PA CHEST 1 VIEW HISTORY: COMPARISON: None. FINDINGS: [...] Note | + + | 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, RadiYovigo Res In Interface - 09/15/2017 6:45 PM PDT EXAM: PA CHEST 1 | | VIEW HISTORY: COMPARISON: [...] | Narrative | + + | EXAM: PA CHEST PICC LINE CHECK HISTORY: PICC COMPARISON: [...] Interface - 09/15/2017 6:43 PM PDT EXAM: PA CHEST | | PICC LINE CHECK HISTORY: [...] nodular groundglass opacification. Retrocardiac atelectasis has improved. is no definite pleural effusion. There is [...] | | Procedure Note Indications:TPN Procedure location: Unit:13 Room: #12 Providers: | | Attending name: [...] A pause verifies correct patient, procedure, equipment, sales support consultant and | | site/side marked as required. [...] Arm area Basilic vein. Catheter lot number: [id number] with a length of 55 cm | [...] Note | + + | 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, Teliportme Res In Interface - 09/15/2017 2:13 PM [...] [facility], CORE [address] | | | [place] [address] | + + + + + | [...] | Blood | [facility], CORE [address] [facility] | | | [place] [address] | + + + + + | [...] | | ------ CBC (HEMOGRAM) | | ONLY[[id number]] Abnormal Final | | result Please view [...] | >60 | >60 mL/min | | EQUATORIAL GUINEAN | | | + + + + | EGFR NON | >60 | >60 mL/min | | -EQUATORIAL GUINEAN | | | + + + + [...] | Blood | [facility], CORE [address] | | | [place] [address] | + + + + + | [...] Blood | [facility], [facility] [address] [place] [address] | | | [place] [address] | + + + + + | [...] | Blood | [facility], [address] [address] | | | [place] [address] | + + + + + | [...] | | ------ CBC (HEMOGRAM) | | ONLY[[id number]] Abnormal Final | | result Please view [...] | >60 | >60 mL/min | | EQUATORIAL GUINEAN | | | + + + + | EGFR NON | >60 | >60 mL/min | | -EQUATORIAL GUINEAN | | | + + + + [...] [facility], [address] | | | [place] [address] | + + + + + | [...] | + + + | Blood | [facility], [address]ORE [address] [address] | | | [place] [address] | + + + + + | [...] [facility], [address] | | | [place] [address] | + + + + + | [...] | | ------ CBC (HEMOGRAM) | | ONLY[[id number]] Abnormal Final | | result Please view [...] | >60 | >60 mL/min | | EQUATORIAL GUINEAN | | | + + + + | EGFR NON | >60 | >60 mL/min | | -EQUATORIAL GUINEAN | | | + + + + [...] | + + + | Blood | [facility], CORE [address] [facility] [facility] | | | [place] [address] | + + + + + | [...] Blood | [facility], [address] [place] | | | [place] [address] | + + + + + | [...] | + + + | Blood | [facility], [address] [facility] | | | [place] [address] | + + + + + | [...] | | ------ CBC (HEMOGRAM) | | ONLY[[id number]] Abnormal Final | | result Please view [...] | >60 | >60 mL/min | | EQUATORIAL GUINEAN | | | + + + + | EGFR NON | >60 | >60 mL/min | | -EQUATORIAL GUINEAN | | | + + + + [...] [facility], [address] [facility] | | | [place] [address] | + + + + + | [...] | + + + | Blood | [facility], [address] [facility] | | | [place] [address] | + + + + + | [...] [facility], [address] | | | [place] [address] | + + + + + | [...] | | ------ CBC (HEMOGRAM) | | ONLY[[id number]] Abnormal Final | | result Please view [...] | >60 | >60 mL/min | | EQUATORIAL GUINEAN | | | + + + + | EGFR NON | >60 | >60 mL/min | | -EQUATORIAL GUINEAN | | | + + + + [...] [facility], CORE [address] | | | [place], [place] [address] | + + + + + | [...] [facility], CORE [address] | | | [place] [address] | + + + X-RAY ABD LTD [...] | Narrative | + + | STUDY: PA CHEST 1 VIEW 09/10/17 07:02:01 HISTORY: Possible [...] Interface - 09/10/2017 9:25 AM PDT STUDY: PA CHEST 1 | | VIEW 09/10/17 07:02:01 [...] [facility], CORE [address] | | | [facility] [place] [address] | + + + AMYLASE, PLASMA (09/10/2017 5:08 AM) + +-------+ + | Component | Value | Ref Range | + +-------+ + | AMYLASE,PLASMA | 58 | 25 - 115 U/L | + +-------+ + + + + | Specimen | Performing Laboratory | + + + | Blood | [facility], CORE [address] | | | [place] [address] | + + + CBC (HEMOGRAM) ONLY [facility] [address] | | | [place] [address] | + + + + + | [...] | [facility], CORE [address] [place] [address] | | | [place] [address] | + + + + + | [...] | | ------ CBC (HEMOGRAM) | | ONLY[[id number]] Abnormal Final | | result Please view [...] | >60 | >60 mL/min | | EQUATORIAL GUINEAN | | | + + + + | EGFR NON | >60 | >60 mL/min | | -EQUATORIAL GUINEAN | | | + + + + [...] [facility], CORE [address] [facility] [facility] | | | [place] [address] | + + + + + | [...] + | | [facility] [address] [place] [address] | | | [place] [address] | + + + X-RAY ABD LTD [...] Note | + + | 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, Teliportme Res In Interface - 09/10/2017 11:11 AM [...] [address] | | | [place] [address] | + + + MAGNESIUM, PLASMA (09/09/2017 3:50 AM) + +-------+ + | Component | Value | Ref Range | + +-------+ + | MAGNESIUM,PLASMA | 2.0 | 1.6 - 2.6 mg/dL | + +-------+ + + + + | Specimen | Performing Laboratory | + + + | Blood | [facility], CORE [address] [place] [address] [place] | | | [place] [address] | + + + + + | [...] [facility], CORE [address] | | | [place] [address] | + + + + + | [...] | | ------ CBC (HEMOGRAM) | | ONLY[[id number]] Abnormal Final | | result Please view [...] | >60 | >60 mL/min | | EQUATORIAL GUINEAN | | | + + + + | EGFR NON | >60 | >60 mL/min | | -EQUATORIAL GUINEAN | | | + + + + [...] [facility], CORE [address] [facility] [facility] | | | [place] [address] | + + + + + | [...] | Blood | [facility], CORE [address] | | | [place] [address] | + + + + + | [...] | >60 | >60 mL/min | | EQUATORIAL GUINEAN | | | + + + + | EGFR NON | >60 | >60 mL/min | | -EQUATORIAL GUINEAN | | | + + + + [...] | + + + | Blood | [facility], CORE [address] | | | [place] [address] | + + + + + | [...] | | ------ CBC (HEMOGRAM) | | ONLY[[id number]] Abnormal Final | | result Please view [...] [facility], CORE [address] [address] | | | [facility] [place] [address] | + + + LIVER SET (AST,ALT,BILI [...] [facility], CORE [address] [address] | | | [place] [address] | + + + X-RAY ABD LTD [...] [facility] [address] [place] [address] | | | [place] [address] | + + + X-RAY PORTABLE CHEST 1 VIEW (09/07/2017 6:12 AM) + + + | Specimen | Performing Laboratory | + + + | | [facility] VOICE RECOGNITION | + + + + + | Narrative | + + | EXAM: PA CHEST 1 VIEW HISTORY: Post extubation COMPARISON: 09/05/17 | | FINDINGS: Interval extubation. Enteric tube has been replaced with weighted tip | | Dorobbie, incompletely imaged. C. collar remains in place. [...] Interface - 09/07/2017 10:46 AM PDT EXAM: PA CHEST 1 | | VIEWHISTORY: Post extubationCOMPARISON: [...] [facility], CORE [address] [address] | | | [place] [address] | + + + + + | [...] | >60 | >60 mL/min | | EQUATORIAL GUINEAN | | | + + + + | EGFR NON | >60 | >60 mL/min | | -EQUATORIAL GUINEAN | | | + + + + [...] [facility], CORE [address] [address] | | | [place] [address] | + + + + + | [...] | [facility], CORE [address] [address] | | | [place] [address] | + + + + + | [...] | | ------ CBC (HEMOGRAM) | | ONLY[[id number]] Abnormal Final | | result Please view [...] Note | + + | 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, Teliportme Res In Interface - 09/07/2017 10:46 AM [...] + | EXAM: ABD LTD FEEDING TUBE KAREEMAL 09/06/17 18:14:00 COMPARISON: None | | FINDINGS: [...] Note | + + | 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, Teliportme Res In Interface - 09/07/2017 10:46 AM [...] Laboratory | + + + | | [facility] [address] [facility] | | | [place] [address] | + + + PROCEDURE NOTE (09/06/2017 [...] on the 1st attempt. Midline lot number [id number]; there was positive blood | | return. [...] | >60 | >60 mL/min | | EQUATORIAL GUINEAN | | | + + + + | EGFR NON | >60 | >60 mL/min | | -EQUATORIAL GUINEAN | | | + + + + [...] | Blood | [facility] [place] [address] | | | [place] [address] | + + + + + | [...] | + + + | Blood | [facility], CORE [address] [place] [address] | | | [place] [address] | + + + + + | [...] | Narrative | + + | EXAM: PA CHEST 1 VIEW HISTORY: Evaluation after chest [...] Interface - 09/05/2017 10:16 AM PDT EXAM: PA CHEST 1 | | VIEW HISTORY: Evaluation [...] | [facility], CORE [address] [place] [address] | | | [place] [address] | + + + MAGNESIUM, PLASMA (09/05/2017 3:54 AM) + +-------+ + | Component | Value | Ref Range | + +-------+ + | MAGNESIUM,PLASMA | 1.8 | 1.6 - 2.6 mg/dL | + +-------+ + + + + | Specimen | Performing Laboratory | + + + | Blood | [facility], CORE [address] [address] | | | [place] [address] | + + + + + | [...] | >60 | >60 mL/min | | EQUATORIAL GUINEAN | | | + + + + | EGFR NON | >60 | >60 mL/min | | -EQUATORIAL GUINEAN | | | + + + + [...] | + + + | Blood | [facility], [facility] [place] [address] | | | [facility] [place] [address] | + + + + + | [...] | >60 | >60 mL/min | | EQUATORIAL GUINEAN | | | + + + + | EGFR NON | >60 | >60 mL/min | | -EQUATORIAL GUINEAN | | | + + + + [...] [facility], CORE [address] [facility] | | | [place] [address] | + + + + + | [...] tomorrow morning. CB Henson Pager / ID: [phone] | + + CULTURE, SPUTUM (09/04/2017 1:17 PM) + + + | Specimen | Performing Laboratory | + + + | Sputum - | [facility] [place] [address] [place] [address] | | Endotracheal tube | [address] | | tip | | + + [...] + | Urine - Catheter - | [facility], CORE [address] | | [place] | [place] [address] | + + + UATITO ONLY (09/04/2017 1:17 PM) + + + [...] + | SPECIFIC GRAVITY | 1.011Comment: Specific Shaw[place] performed by | 1.005 - 1.030 | | | refractometry | | + + + + + + + | Specimen | Performing Laboratory | + + + | Urine - Catheter - | [facility], CORE [address] [facility] [facility] | | [place] | [facility] [place] [address] | + + + CULTURE, BLOOD BACTI [...] [facility] [address] | | line | [place] [address] | + + + CULTURE, BLOOD BACTI & YEAST [facility] (09/04/2017 1:16 PM) + + + + [...] | [facility], CORE [address] [facility] | | | [place] [address] | + + + CULTURE, BLOOD BACTI [...] ------ CULTURE, BLOOD | | BACTI & Y...[[id number]] Final | | result Please view results [...] ------ CULTURE, BLOOD | | BACTI & Y...[[id number]] Final | | result Please view results [...] Laboratory | + + + | | [facility] [address] [place] [address] | | | [place] [address] | + + + X-RAY PORTABLE CHEST 1 VIEW (09/04/2017 7:04 AM) + + + | Specimen | Performing Laboratory | + + + | | [facility] VOICE RECOGNITION | + + + + + | Narrative | + + | EXAM: PA CHEST 1 VIEW HISTORY: Hypoxia. Intubated. COMPARISON: [...] Interface - 09/04/2017 9:49 AM PDT EXAM: PA CHEST 1 | | VIEW HISTORY: Hypoxia. [...] [facility], CORE [address] [facility] [facility] | | | [place] [address] | + + + CBC (HEMOGRAM) ONLY [...] | [facility], CORE [address] [place] [address] | | | [place] [address] | + + + RENAL FUNCTION SET [...] | >60 | >60 mL/min | | EQUATORIAL GUINEAN | | | + + + + | EGFR NON | >60 | >60 mL/min | | -EQUATORIAL GUINEAN | | | + + + + [...] Blood | [facility], [facility] [place] [address] | | | [place] [address] | + + + + + | [...] | [facility], CORE [address] [place] [address] | | | [facility] [place] [address] | + + + + + | [...] | | ------ CBC (HEMOGRAM) | | ONLY[[id number]] Abnormal Final | | result Please view [...] [address] | | | [place] [address] | + + + CAPILLARY BLOOD GLUCOSE (NO CHG), POC (09/04/2017 12:17 AM) + +-------+ + | Component | Value | Ref Range | + +-------+ + | BLOOD GLUCOSE, POC | 72 | 70 - 99 mg/dL | + +-------+ + + + + | Specimen | Performing Laboratory | + + + | | [facility] [address] | | | [place] [address] | + + + CAPILLARY BLOOD GLUCOSE (NO CHG), POC (09/03/2017 9:22 PM) + +---------+ + | Component | Value | Ref Range | + +---------+ + | BLOOD GLUCOSE, POC | 119 (H) | 70 - 99 mg/dL | + +---------+ + + + + | Specimen | Performing Laboratory | + + + | | [facility], POINT OF CARE TESTS [address] | | | [place] [address] | + + + CAPILLARY BLOOD GLUCOSE [...] [address] | | | [place] [address] | + + + VASC LAB VENOUS [...] Note | + + | 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, Jianshu In Interface - 09/03/2017 10:27 AM PDT [...] + + + | Sputum - | [facility] [address] [place] [address] | | Expectorated | [id number] | + + + + + | [...] [facility] [address] | | | [place] [address] | + + + X-RAY ABD LTD [...] Nette Galeas, Radiant Res In Interface - 09/03/2017 9:54 [...] + + + | Sputum - | [facility] [place] [address] [place], [place] | | Expectorated | [id number] | + + + + + | [...] | [facility], CORE [address] [facility] [facility] | | | [place] [address] | + + + CBC (HEMOGRAM) ONLY [...] [facility], CORE [address] [facility] [facility] | | | [place] [address] | + + + RENAL FUNCTION SET [...] | >60 | >60 mL/min | | EQUATORIAL GUINEAN | | | + + + + | EGFR NON | >60 | >60 mL/min | | -EQUATORIAL GUINEAN | | | + + + + [...] | Blood | [facility], CORE [address] [facility] [facility] | | | [place] [address] | + + + + + | [...] | + + + | Blood | [facility], CORE [address] [facility] [facility] | | | [place] [address] | + + + + + | [...] | | ------ CBC (HEMOGRAM) | | ONLY[[id number]] Abnormal Final | | result Please view results for these tests on the | | individual orders. | + + OPERATION RECORD (09/02/2017 6:53 PM) + + | Procedure Note | + + | Fidelina Shields MD - 09/02/2017 6:53 PM PDT Date of Service: 09/02/2017 | | Attending Surgeon: Fidelina Shields MD Interactive Account Manager(s): | | Ajay Garcia MD, resident. Preoperative [...] ICU in stable condition.Ajay Garcia, | | GHAZALA Christianson/MODLDD: 09/02/2017 18:15:29DT: 09/02/2017 18:53:52Job #: | | [id number] to federal Medicare and Medicaid regulations I was present for | | the entire procedure.Fidelina Tenorio ProfessorDepartment of SurgeryOffice: | | [phone]: [id number] has been electronically signed by Fidelina Shields MD, | | 09/03/2017 at 9:11 AM. | | | | | |Fidelina Shields MD | |Hypertrichologist | |Department of Surgery | |Office: [phone] | |Pager: [phone] | | | |This has been electronically [...] | + + + | Blood | [facility], CORE [address] [place] [address] | | | [facility] [place] [address] | + + + BLOOD GASES, ARTERIAL [...] [facility], CORE [address] [facility] [facility] [facility] | | | [place] [address] | + + + CULTURE, AFB (ALL SPEC TYPES EXCEPT BLOOD) (09/02/2017 5:10 PM) + + + | Specimen | Performing Laboratory | + + + | Sputum - | [facility] [address] [place], [place] | | Expectorated | [id number] | + + + + + | [...] | Blood | [facility], CORE [address] [facility] [facility] | | | [place] [address] | + + + + + | [...] | >60 | >60 mL/min | | EQUATORIAL GUINEAN | | | + + + + | EGFR NON | >60 | >60 mL/min | | -EQUATORIAL GUINEAN | | | + + + + [...] | [facility], CORE [address] [facility] [facility] | | | [place] [address] | + + + + + | [...] Initial surgical contact: INGRID Zhang | | Beckie, Surgery [phone] Pursuant to federal Medicare and Medicaid regulations I | | was present for the entire procedure. Fidelina Shields MD Interactive Account Manager | | Professor Department of Surgery Office: [phone] Pager: [phone] This has been | | electronically signed [...] [facility], CORE [address] [facility] [facility] | | | [place] [address] | + + + INR (09/02/2017 9:39 AM) + + + + | Component | Value | Ref Range | + + + + | INR | 1.26 (H) | 0.90 - 1.20 INR | + + + + + + + | Specimen | Performing Laboratory | + + + | Blood | [facility], CORE [address] | | | [place] [address] | + + + + + | [...] | | Attending Surgeon: Fidelina Shields MD Interactive Account Manager(s): Haim Peralta MD. | | Ajay Garcia [...] of the angiography.Ajay | | Truong Casarez, MDTBK/MODLDD: 09/02/2017 06:17:53DT: 09/02/2017 | | 06:51:37Job #: [id number] to federal Medicare and Medicaid regulations I | | was present for the entire procedure.Fidelina Tenorio ProfessorDepartment of | | SurgeryOffice: [phone]: [id number] has been electronically signed by Fidelina Shields MD, 09/02/2017 at 10:40 AM. | | | | | |Pursuant to federal Medicare and Medicaid regulations I was present for the entire procedur e. | | | | | | | |Fidelina Shields MD | |Hypertrichologist | |Department of Surgery | |Office: [phone] | |Pager: [phone] | | | |This has been electronically [...] | Blood | [facility], CORE [address] | | | [place] [address] | + + + HEMATOCRIT (09/02/2017 5:16 AM) + + + + | Component | Value | Ref Range | + + + + | HEMATOCRIT | 34.0 (L) | 41.0 - 53.0 % | + + + + + + + | Specimen | Performing Laboratory | + + + | Blood | [facility], CORE [address] | | | [place] [address] | + + + PRODUCT - RED CELLS LEUKOREDUCED (09/02/2017 2:53 AM) + + + + | Component | Value | Ref Range | + + + + | PRODUCT DESCRIPTION | -1 RED BLOOD CELL ADENINE-SALINE ADDED | | | | LEUKOCYTE | | + + + + | PRODUCT UNIT # | [id number] | | + + + + | UNIT ABO | O | | + + + + | UNIT RH | POS | | + + + + | STATUS OF UNIT | Presumed Transfused | | + + + + | EXPIRATION DATE | [id number] | | + + + + | BLOOD TYPE BARCODE | 5100 | | + + + + | BLOOD PRODUCT CODE | [id number] | | + + + + + + + | Specimen | Performing Laboratory | + + + | | [facility], TRANSFUSION MEDICINE [address] [facility] [facility] | | | [place] [address] | + + + CT PELVIS WO [...] | [facility], CORE [address] | | | [place] [address] | + + + RENAL FUNCTION SET [...] | >60 | >60 mL/min | | EQUATORIAL GUINEAN | | | + + + + | EGFR NON | >60 | >60 mL/min | | -EQUATORIAL GUINEAN | | | + + + + [...] Blood | [facility], CORE [address] [facility] | | | [place] [address] | + + + + + | [...] [facility], CORE [address] [facility] | | | [place] [address] | + + + + + | [...] | | ------ CBC (HEMOGRAM) | | ONLY[[id number]] Abnormal Final | | result Please view [...] | | (http://www.cdc.gov/mmwr/preview/mmwrhtml/r | | | | [email or web address].htm), for information concerning | | | | test performance in low-prevalence | | | | populations and use in occupational | | | | screening. | | + + + + | NIL | 0.05Comment: Performed by [employer] | IU/mL | | | [employer], | | | | [address], | | | | [place] [address] | | | | [phone] | | | | [email or web address].[employer] In, Gui Ervin MD - | | | | Lab. Director | | + + + + | TB AG-NIL | 0.26 | 0.00 - 0.34 IU/mL | + + + + | MITOGEN-NIL | 9.35 | IU/mL | + + + + + + + | Specimen | Performing Laboratory | + + + | Blood | [facility] [address] [place], [place] | | | [address] | + + + LACTATE (09/01/2017 8:18 PM) + +-------+ + | Component | Value | Ref Range | + +-------+ + | LACTATE | 1.6 | mmol/L | + +-------+ + + + + | Specimen | Performing Laboratory | + + + | Blood | [facility], CORE [address] [facility] | | | [place] [address] | + + + + + | [...] [facility], CORE [address] [facility] | | | [place] [address] | + + + X-RAY KNEE 2 [...] Note | + + | 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, RadiYovigo Res In Interface - 09/02/2017 8:55 AM [...] | Narrative | + + | EXAM: PA CHEST 1 VIEW HISTORY: Hypoxemia COMPARISON: 09/01/17 [...] Account, Kostas Res In Interface - 09/02/2017 10:34 AM PDT EXAM: PA CHEST 1 | | VIEW HISTORY: HypoxemiaCOMPARISON: [...] | [facility], CORE [address] [facility] [facility] [facility] | | | [place] [address] | + + + HEMATOCRIT (09/01/2017 5:43 PM) + + + + | Component | Value | Ref Range | + + + + | HEMATOCRIT | 34.1 (L) | 41.0 - 53.0 % | + + + + + + + | Specimen | Performing Laboratory | + + + | Blood | [facility], CORE [address] | | | [place] [address] | + + + PRODUCT - PLATELET PHERESIS LEUKOREDUCED (09/01/2017 4:42 PM) + + + + | Component | Value | Ref Range | + + + + | PRODUCT DESCRIPTION | PLATELETS PHERESIS LEUKOCYTE REDUCED | | + + + + | PRODUCT UNIT # | [id number] | | + + + + | UNIT ABO | O | | + + + + | UNIT RH | POS | | + + + + | STATUS OF UNIT | Presumed Transfused | | + + + + | EXPIRATION DATE | [id number] | | + + + + | BLOOD TYPE BARCODE | | | + + + + | BLOOD PRODUCT CODE | [id number] | | + + + + + + + | Specimen | Performing Laboratory | + + + | | [facility], TRANSFUSION MEDICINE [address] [facility] [facility] | | | [place] [address] | + + + BLOOD GASES, ARTERIAL [...] | [facility], CORE [address] [place] [address] | | | [place] [address] | + + + LACTATE (09/01/2017 4:19 PM) + +-------+ + | Component | Value | Ref Range | + +-------+ + | LACTATE | 1.6 | mmol/L | + +-------+ + + + + | Specimen | Performing Laboratory | + + + | Blood | [facility], CORE [address] [place] [address] | | | [place] [address] | + + + + + | [...] [facility], CORE [address] [facility] | | | [place] [address] | + + + COMPLETE METABOLIC SET [...] | >60 | >60 mL/min | | EQUATORIAL GUINEAN | | | + + + + | EGFR NON | >60 | >60 mL/min | | -EQUATORIAL GUINEAN | | | + + + + [...] | Blood | [facility] [place] [address] [facility] | | | [place] [address] | + + + + + | [...] | | ------ CBC (HEMOGRAM) | | ONLY[[id number]] Abnormal Final | | result Please view [...] | + + + | Blood | [facility], CORE [address] | | | [place] [address] | + + + + + | [...] | [facility], CORE [address] [facility] | | | [place] [address] | + + + + + | [...] micropuncture access set was exchanged for a [employer] | | wire. Under fluoroscopic guidance, a 5 Fr flush catheter was used to evaluate the | | distal abdominal aorta and pelvic vasculature. A wire and catheter were then used to | | select the left common and internal iliac arteries from the right HANDBAG FRAMES INSPECTOR approach. DSA | | was performed from [...] micropuncture access set was exchanged for a Meldium wire. Under fluoroscopic guidance, | | a 5 Fr flush catheter was used to evaluate the distal abdominal aorta and pelvic | | vasculature. A wire and catheter were then used to select the left common and internal | | iliac arteries from the right HANDBAG FRAMES INSPECTOR approach. DSA was performed from the left [...] micropuncture access set was exchanged for a Meldium wire. Under fluoroscopic guidance, a 5 Fr flush catheter was used | |to evaluate the distal abdominal aorta and pelvic vasculature. A wire and catheter were th en used to select the left common and internal iliac arteries from the right HANDBAG FRAMES INSPECTOR approach. DSA was performed from the left [...] | + + + | Blood | [facility], POINT OF CARE TESTS [address] | | | [place] [address] | + + + EXPLORATORY LAPAROTOMY (09/01/2017 12:31 PM) + + | Narrative | + + | Fidelina Shields MD 09/01/2017 12:42 PM BRIEF OPERATIVE NOTE: | | Date: 09/01/2017 Author: Fidelina Shields MD Attending Physician: | | Fidelina Shields MD Interactive Account Manager(s): Haim Peralta MD, Glo Olmos MD | | M[facility] MS3 Prior to the [...] the case. | | Fidelina Shields MD Hypertrichologist Division of Trauma, Critical Care and | | Acute Care Surgery Office: [phone] Pager: [phone] | + + ABG-FULL ABL, POC (09/01/2017 [...] + + + | Blood | [facility], [facility] CARE [facility] [address] | | | [place] [address] | + + + CREATININE, BODY FLUID (09/01/2017 11:52 AM) + +-------+ + | Component | Value | Ref Range | + +-------+ + | CREATININE BODY | 0.60 | mg/dL | | FLUID | | | + +-------+ + + + + | Specimen | Performing Laboratory | + + + | Fluid - Abdominal | [facility], [address] [address] [facility] | | | [place] [address] | + + + + + | [...] + | Blood | [facility], POINT [facility] [address] | | | [place] [address] | + + + PRODUCT - PLATELET PHERESIS LEUKOREDUCED (09/01/2017 9:56 AM) + + + + | Component | Value | Ref Range | + + + + | PRODUCT DESCRIPTION | PLATELETS PHERESIS LEUKOCYTES REDUCED | | + + + + | PRODUCT UNIT # | [id number] | | + + + + | UNIT ABO | A | | + + + + | UNIT RH | POS | | + + + + | STATUS OF UNIT | Returned to Blood Bank | | + + + + | EXPIRATION DATE | [id number] | | + + + + | BLOOD TYPE BARCODE | 6200 | | + + + + | BLOOD PRODUCT CODE | [id number] | | + + + + + + + | Specimen | Performing Laboratory | + + + | | [facility], TRANSFUSION MEDICINE [address] [facility] [facility] | | | [place] [address] | + + + PRODUCT - FRESH FROZEN PLASMA (09/01/2017 9:53 AM) + + + + | Component | Value | Ref Range | + + + + | PRODUCT DESCRIPTION | LIQUID PLASMA, IRRADIATED | | + + + + | PRODUCT UNIT # | [id number] | | + + + + | UNIT ABO | A | | + + + + | UNIT RH | POS | | + + + + | STATUS OF UNIT | Returned to Blood Bank | | + + + + | EXPIRATION DATE | [id number] | | + + + + | BLOOD TYPE BARCODE | 6200 | | + + + + | BLOOD PRODUCT CODE | [id number] | | + + + + + + + | Specimen | Performing Laboratory | + + + | | [facility], TRANSFUSION MEDICINE [address] [facility] [facility] | | | [place] [address] | + + + PRODUCT - FRESH FROZEN PLASMA (09/01/2017 9:53 AM) + + + + | Component | Value | Ref Range | + + + + | PRODUCT DESCRIPTION | LIQUID PLASMA, IRRADIATED | | + + + + | PRODUCT UNIT # | [id number] | | + + + + | UNIT ABO | A | | + + + + | UNIT RH | POS | | + + + + | STATUS OF UNIT | Returned to Blood Bank | | + + + + | EXPIRATION DATE | [id number] | | + + + + | BLOOD TYPE BARCODE | 6200 | | + + + + | BLOOD PRODUCT CODE | [id number] | | + + + + + + + | Specimen | Performing Laboratory | + + + | | [facility], TRANSFUSION MEDICINE [address] [facility] [facility] [facility] | | | [place] [address] | + + + PRODUCT - RED CELLS LEUKOREDUCED (09/01/2017 9:49 AM) + + + + | Component | Value | Ref Range | + + + + | PRODUCT DESCRIPTION | -3 RED BLOOD CELLS ADENINE-SALINE ADDED | | | | LEUKOCY | | + + + + | PRODUCT UNIT # | [id number] | | + + + + | UNIT ABO | O | | + + + + | UNIT RH | POS | | + + + + | STATUS OF UNIT | Returned to Blood Bank | | + + + + | EXPIRATION DATE | [id number] | | + + + + | BLOOD TYPE BARCODE | 5100 | | + + + + | BLOOD PRODUCT CODE | [id number] | | + + + + + + + | Specimen | Performing Laboratory | + + + | | [facility], TRANSFUSION MEDICINE [address] [place] [address] | | | [place] [address] | + + + PRODUCT - RED CELLS LEUKOREDUCED (09/01/2017 9:49 AM) + + + + | Component | Value | Ref Range | + + + + | PRODUCT DESCRIPTION | -3 RED BLOOD CELLS ADENINE-SALINE ADDED | | | | LEUKOCY | | + + + + | PRODUCT UNIT # | [id number] | | + + + + | UNIT ABO | O | | + + + + | UNIT RH | POS | | + + + + | STATUS OF UNIT | Returned to Blood Bank | | + + + + | EXPIRATION DATE | [id number] | | + + + + | BLOOD TYPE BARCODE | 5100 | | + + + + | BLOOD PRODUCT CODE | [id number] | | + + + + + + + | Specimen | Performing Laboratory | + + + | | [facility], TRANSFUSION MEDICINE [address] [facility] [facility] | | | [place] [address] | + + + PRODUCT - RED CELLS LEUKOREDUCED (09/01/2017 9:49 AM) + + + + | Component | Value | Ref Range | + + + + | PRODUCT DESCRIPTION | -1 RED BLOOD CELL ADENINE-SALINE ADDED | | | | LEUKOCYTE | | + + + + | PRODUCT UNIT # | [id number] | | + + + + | UNIT ABO | O | | + + + + | UNIT RH | POS | | + + + + | STATUS OF UNIT | Returned to Blood Bank | | + + + + | EXPIRATION DATE | [id number] | | + + + + | BLOOD TYPE BARCODE | 5100 | | + + + + | BLOOD PRODUCT CODE | [id number] | | + + + + + + + | Specimen | Performing Laboratory | + + + | | [facility], TRANSFUSION MEDICINE [address] | | | [place] [address] | + + + PRODUCT - RED CELLS LEUKOREDUCED (09/01/2017 9:49 AM) + + + + | Component | Value | Ref Range | + + + + | PRODUCT DESCRIPTION | -1 RED BLOOD CELL ADENINE-SALINE ADDED | | | | LEUKOCYTE | | + + + + | PRODUCT UNIT # | [id number] | | + + + + | UNIT ABO | O | | + + + + | UNIT RH | POS | | + + + + | STATUS OF UNIT | Returned to Blood Bank | | + + + + | EXPIRATION DATE | [id number] | | + + + + | BLOOD TYPE BARCODE | 5100 | | + + + + | BLOOD PRODUCT CODE | [id number] | | + + + + + + + | Specimen | Performing Laboratory | + + + | | [facility], TRANSFUSION MEDICINE [address] [facility] | | | [place] [address] | + + + PRODUCT - RED CELLS LEUKOREDUCED (09/01/2017 9:49 AM) + + + + | Component | Value | Ref Range | + + + + | PRODUCT DESCRIPTION | -1 RED BLOOD CELL ADENINE-SALINE ADDED | | | | LEUKOCYTE | | + + + + | PRODUCT UNIT # | [id number] | | + + + + | UNIT ABO | O | | + + + + | UNIT RH | POS | | + + + + | STATUS OF UNIT | Returned to Blood Bank | | + + + + | EXPIRATION DATE | [id number] | | + + + + | BLOOD TYPE BARCODE | 5100 | | + + + + | BLOOD PRODUCT CODE | [id number] | | + + + + + + + | Specimen | Performing Laboratory | + + + | | [facility], TRANSFUSION MEDICINE [address] [facility] [facility] | | | [place] [facility] [address] | + + + PRODUCT - RED CELLS LEUKOREDUCED (09/01/2017 9:49 AM) + + + + | Component | Value | Ref Range | + + + + | PRODUCT DESCRIPTION | -1 RED BLOOD CELL ADENINE-SALINE ADDED | | | | LEUKOCYTE | | + + + + | PRODUCT UNIT # | [id number] | | + + + + | UNIT ABO | O | | + + + + | UNIT RH | POS | | + + + + | STATUS OF UNIT | Returned to Blood Bank | | + + + + | EXPIRATION DATE | [id number] | | + + + + | BLOOD TYPE BARCODE | 5100 | | + + + + | BLOOD PRODUCT CODE | [id number] | | + + + + + + + | Specimen | Performing Laboratory | + + + | | [facility], TRANSFUSION MEDICINE [address] | | | [place] [address] | + + + PRODUCT - FRESH FROZEN PLASMA (09/01/2017 9:46 AM) + + + + | Component | Value | Ref Range | + + + + | PRODUCT DESCRIPTION | PLASMA THAWED | | + + + + | PRODUCT UNIT # | [id number] | | + + + + | UNIT ABO | B | | + + + + | UNIT RH | POS | | + + + + | STATUS OF UNIT | Returned to Blood Bank | | + + + + | EXPIRATION DATE | [id number] | | + + + + | BLOOD TYPE BARCODE | 7300 | | + + + + | BLOOD PRODUCT CODE | [id number] | | + + + + + + + | Specimen | Performing Laboratory | + + + | | [facility], TRANSFUSION MEDICINE [address] | | | [place] [address] | + + + PRODUCT - FRESH FROZEN PLASMA (09/01/2017 9:46 AM) + + + + | Component | Value | Ref Range | + + + + | PRODUCT DESCRIPTION | PLASMA THAWED | | + + + + | PRODUCT UNIT # | [id number] | | + + + + | UNIT ABO | B | | + + + + | UNIT RH | POS | | + + + + | STATUS OF UNIT | Returned to Blood Bank | | + + + + | EXPIRATION DATE | [id number] | | + + + + | BLOOD TYPE BARCODE | 7300 | | + + + + | BLOOD PRODUCT CODE | [id number] | | + + + + + + + | Specimen | Performing Laboratory | + + + | | [facility], TRANSFUSION MEDICINE [address] [facility] [facility] | | | [place] [address] | + + + PRODUCT - FRESH FROZEN PLASMA (09/01/2017 9:46 AM) + + + + | Component | Value | Ref Range | + + + + | PRODUCT DESCRIPTION | LIQUID PLASMA, IRRADIATED | | + + + + | PRODUCT UNIT # | [id number] | | + + + + | UNIT ABO | A | | + + + + | UNIT RH | POS | | + + + + | STATUS OF UNIT | Returned to Blood Bank | | + + + + | EXPIRATION DATE | [id number] | | + + + + | BLOOD TYPE BARCODE | 6200 | | + + + + | BLOOD PRODUCT CODE | [id number] | | + + + + + + + | Specimen | Performing Laboratory | + + + | | [facility], TRANSFUSION MEDICINE [address] [facility] | | | [place] [address] | + + + PRODUCT - FRESH FROZEN PLASMA (09/01/2017 9:46 AM) + + + + | Component | Value | Ref Range | + + + + | PRODUCT DESCRIPTION | LIQUID PLASMA, IRRADIATED | | + + + + | PRODUCT UNIT # | [id number] | | + + + + | UNIT ABO | A | | + + + + | UNIT RH | POS | | + + + + | STATUS OF UNIT | Returned to Blood Bank | | + + + + | EXPIRATION DATE | [id number] | | + + + + | BLOOD TYPE BARCODE | 6200 | | + + + + | BLOOD PRODUCT CODE | [id number] | | + + + + + + + | Specimen | Performing Laboratory | + + + | | [facility], TRANSFUSION MEDICINE [address] [facility] [facility] | | | [place] [address] | + + + PRODUCT - FRESH FROZEN PLASMA (09/01/2017 9:46 AM) + + + + | Component | Value | Ref Range | + + + + | PRODUCT DESCRIPTION | LIQUID PLASMA, IRRADIATED | | + + + + | PRODUCT UNIT # | [id number] | | + + + + | UNIT ABO | A | | + + + + | UNIT RH | POS | | + + + + | STATUS OF UNIT | Returned to Blood Bank | | + + + + | EXPIRATION DATE | [id number] | | + + + + | BLOOD TYPE BARCODE | 6200 | | + + + + | BLOOD PRODUCT CODE | [id number] | | + + + + + + + | Specimen | Performing Laboratory | + + + | | [facility], TRANSFUSION MEDICINE [address] [facility] [facility] | | | [place] [address] | + + + PRODUCT - FRESH FROZEN PLASMA (09/01/2017 9:46 AM) + + + + | Component | Value | Ref Range | + + + + | PRODUCT DESCRIPTION | LIQUID PLASMA, IRRADIATED | | + + + + | PRODUCT UNIT # | [id number] | | + + + + | UNIT ABO | A | | + + + + | UNIT RH | POS | | + + + + | STATUS OF UNIT | Returned to Blood Bank | | + + + + | EXPIRATION DATE | [id number] | | + + + + | BLOOD TYPE BARCODE | 6200 | | + + + + | BLOOD PRODUCT CODE | [id number] | | + + + + + + + | Specimen | Performing Laboratory | + + + | | [facility], TRANSFUSION MEDICINE [address] | | | [place] [address] | + + + PRODUCT - PLATELET PHERESIS LEUKOREDUCED (09/01/2017 9:43 AM) + + + + | Component | Value | Ref Range | + + + + | PRODUCT DESCRIPTION | PLATELETS PHERESIS LEUKOCYTE REDUCED | | + + + + | PRODUCT UNIT # | [id number] | | + + + + | UNIT ABO | A | | + + + + | UNIT RH | POS | | + + + + | STATUS OF UNIT | Presumed Transfused | | + + + + | EXPIRATION DATE | [id number] | | + + + + | BLOOD TYPE BARCODE | 6200 | | + + + + | BLOOD PRODUCT CODE | [id number] | | + + + + + + + | Specimen | Performing Laboratory | + + + | | [facility], TRANSFUSION MEDICINE [address] [facility] [facility] | | | [place] [address] | + + + PRODUCT - FRESH FROZEN PLASMA (09/01/2017 9:35 AM) + + + + | Component | Value | Ref Range | + + + + | PRODUCT DESCRIPTION | LIQUID PLASMA, IRRADIATED | | + + + + | PRODUCT UNIT # | [id number] | | + + + + | UNIT ABO | A | | + + + + | UNIT RH | NEG | | + + + + | STATUS OF UNIT | Presumed Transfused | | + + + + | EXPIRATION DATE | [id number] | | + + + + | BLOOD TYPE BARCODE | | | + + + + | BLOOD PRODUCT CODE | [id number] | | + + + + + + + | Specimen | Performing Laboratory | + + + | | [facility], TRANSFUSION MEDICINE [address] [facility] | | | [place] [address] | + + + PRODUCT - FRESH FROZEN PLASMA (09/01/2017 9:35 AM) + + + + | Component | Value | Ref Range | + + + + | PRODUCT DESCRIPTION | LIQUID PLASMA, IRRADIATED | | + + + + | PRODUCT UNIT # | [id number] | | + + + + | UNIT ABO | A | | + + + + | UNIT RH | NEG | | + + + + | STATUS OF UNIT | Returned to Blood Bank | | + + + + | EXPIRATION DATE | [id number] | | + + + + | BLOOD TYPE BARCODE | 0600 | | + + + + | BLOOD PRODUCT CODE | [id number] | | + + + + + + + | Specimen | Performing Laboratory | + + + | | [facility], TRANSFUSION MEDICINE [address] [facility] [facility] | | | [place] [address] | + + + PRODUCT - FRESH FROZEN PLASMA (09/01/2017 9:35 AM) + + + + | Component | Value | Ref Range | + + + + | PRODUCT DESCRIPTION | LIQUID PLASMA, IRRADIATED | | + + + + | PRODUCT UNIT # | [id number] | | + + + + | UNIT ABO | A | | + + + + | UNIT RH | POS | | + + + + | STATUS OF UNIT | Returned to Blood Bank | | + + + + | EXPIRATION DATE | [id number] | | + + + + | BLOOD TYPE BARCODE | 6200 | | + + + + | BLOOD PRODUCT CODE | [id number] | | + + + + + + + | Specimen | Performing Laboratory | + + + | | [facility], TRANSFUSION MEDICINE [address] | | | [place] [address] | + + + PRODUCT - FRESH FROZEN PLASMA (09/01/2017 9:35 AM) + + + + | Component | Value | Ref Range | + + + + | PRODUCT DESCRIPTION | LIQUID PLASMA, IRRADIATED | | + + + + | PRODUCT UNIT # | [id number] | | + + + + | UNIT ABO | A | | + + + + | UNIT RH | POS | | + + + + | STATUS OF UNIT | Presumed Transfused | | + + + + | EXPIRATION DATE | [id number] | | + + + + | BLOOD TYPE BARCODE | 6200 | | + + + + | BLOOD PRODUCT CODE | [id number] | | + + + + + + + | Specimen | Performing Laboratory | + + + | | [facility], TRANSFUSION MEDICINE [address] [facility] [facility] | | | [place] [address] | + + + PRODUCT - RED CELLS LEUKOREDUCED (09/01/2017 9:35 AM) + + + + | Component | Value | Ref Range | + + + + | PRODUCT DESCRIPTION | -1 RED BLOOD CELL ADENINE-SALINE ADDED | | | | LEUKOCYTE | | + + + + | PRODUCT UNIT # | [id number] | | + + + + | UNIT ABO | O | | + + + + | UNIT RH | POS | | + + + + | STATUS OF UNIT | Returned to Blood Bank | | + + + + | EXPIRATION DATE | [id number] | | + + + + | BLOOD TYPE BARCODE | 5100 | | + + + + | BLOOD PRODUCT CODE | [id number] | | + + + + + + + | Specimen | Performing Laboratory | + + + | | [facility], TRANSFUSION MEDICINE [address] [facility] [facility] | | | [place] [address] | + + + PRODUCT - RED CELLS LEUKOREDUCED (09/01/2017 9:35 AM) + + + + | Component | Value | Ref Range | + + + + | PRODUCT DESCRIPTION | -1 RED BLOOD CELL ADENINE-SALINE ADDED | | | | LEUKOCYTE | | + + + + | PRODUCT UNIT # | [id number] | | + + + + | UNIT ABO | O | | + + + + | UNIT RH | POS | | + + + + | STATUS OF UNIT | Returned to Blood Bank | | + + + + | EXPIRATION DATE | [id number] | | + + + + | BLOOD TYPE BARCODE | 5100 | | + + + + | BLOOD PRODUCT CODE | [id number] | | + + + + + + + | Specimen | Performing Laboratory | + + + | | [facility], TRANSFUSION MEDICINE [address] | | | [place] [address] | + + + PRODUCT - RED CELLS LEUKOREDUCED (09/01/2017 9:35 AM) + + + + | Component | Value | Ref Range | + + + + | PRODUCT DESCRIPTION | -1 RED BLOOD CELL ADENINE-SALINE ADDED | | | | LEUKOCYTE | | + + + + | PRODUCT UNIT # | [id number] | | + + + + | UNIT ABO | O | | + + + + | UNIT RH | POS | | + + + + | STATUS OF UNIT | Presumed Transfused | | + + + + | EXPIRATION DATE | [id number] | | + + + + | BLOOD TYPE BARCODE | 5100 | | + + + + | BLOOD PRODUCT CODE | [id number] | | + + + + + + + | Specimen | Performing Laboratory | + + + | | [facility], TRANSFUSION MEDICINE [address] [facility] [facility] | | | [place] [address] | + + + PRODUCT - RED CELLS LEUKOREDUCED (09/01/2017 9:35 AM) + + + + | Component | Value | Ref Range | + + + + | PRODUCT DESCRIPTION | -1 RED BLOOD CELL ADENINE-SALINE ADDED | | | | LEUKOCYTE | | + + + + | PRODUCT UNIT # | [id number] | | + + + + | UNIT ABO | O | | + + + + | UNIT RH | POS | | + + + + | STATUS OF UNIT | Presumed Transfused | | + + + + | EXPIRATION DATE | [id number] | | + + + + | BLOOD TYPE BARCODE | 5100 | | + + + + | BLOOD PRODUCT CODE | [id number] | | + + + + + + + | Specimen | Performing Laboratory | + + + | | [facility], TRANSFUSION MEDICINE [address] [facility] [facility] [facility] | | | [place] [address] | + + + PRODUCT - RED CELLS LEUKOREDUCED (09/01/2017 9:35 AM) + + + + | Component | Value | Ref Range | + + + + | PRODUCT DESCRIPTION | -1 RED BLOOD CELL ADENINE-SALINE ADDED | | | | LEUKOCYTE | | + + + + | PRODUCT UNIT # | [id number] | | + + + + | UNIT ABO | O | | + + + + | UNIT RH | POS | | + + + + | STATUS OF UNIT | Returned to Blood Bank | | + + + + | EXPIRATION DATE | [id number] | | + + + + | BLOOD TYPE BARCODE | 5100 | | + + + + | BLOOD PRODUCT CODE | [id number] | | + + + + + + + | Specimen | Performing Laboratory | + + + | | [facility], TRANSFUSION MEDICINE [address] | | | [place] [address] | + + + PRODUCT - RED CELLS LEUKOREDUCED (09/01/2017 9:35 AM) + + + + | Component | Value | Ref Range | + + + + | PRODUCT DESCRIPTION | -1 RED BLOOD CELL ADENINE-SALINE ADDED | | | | LEUKOCYTE | | + + + + | PRODUCT UNIT # | [id number] | | + + + + | UNIT ABO | O | | + + + + | UNIT RH | POS | | + + + + | STATUS OF UNIT | Presumed Transfused | | + + + + | EXPIRATION DATE | [id number] | | + + + + | BLOOD TYPE BARCODE | 5100 | | + + + + | BLOOD PRODUCT CODE | [id number] | | + + + + + + + | Specimen | Performing Laboratory | + + + | | [facility], TRANSFUSION MEDICINE [address] [place] [address] | | | [place] [address] | + + + CBC (HEMOGRAM) ONLY [...] [facility], CORE [address] [facility] | | | [place] [address] | + + + RENAL FUNCTION SET [...] | >60 | >60 mL/min | | [facility] | | | + + + + | EGFR NON | >60 | >60 mL/min | | -[facility] | | | + + + + [...] | Blood | [facility] [address] [facility] | | | [place] [address] | + + + + + | [...] | | ------ CBC (HEMOGRAM) | | ONLY[[id number]] Abnormal Final | | result Please view results for these tests on the | | individual orders. | + + LACTATE (09/01/2017 9:35 AM) + +-------+ + | Component | Value | Ref Range | + +-------+ + | LACTATE | 2.5 | mmol/L | + +-------+ + + + + | Specimen | Performing Laboratory | + + + | Blood | [facility], CORE [address] [place] [address] | | | [place] [address] | + + + + + | [...] + + + | Blood | [facility] [address] | | | [place] [address] | + + + X-RAY PORTABLE CHEST 1 VIEW (09/01/2017 9:18 AM) + + + | Specimen | Performing Laboratory | + + + | | [facility] VOICE RECOGNITION | + + + + + | Narrative | + + | EXAM: PA CHEST 1 VIEW HISTORY: Intubated COMPARISON: 08/31/17 [...] Interface - 09/02/2017 1:23 PM PDT EXAM: PA CHEST 1 | | VIEW HISTORY: IntubatedCOMPARISON: [...] Note | + + | 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, Teliportme Res In Interface - 09/01/2017 1:40 PM [...] + + | PRODUCT UNIT # | [id number] | | + + + + | UNIT ABO | O | | + + + + | UNIT RH | POS | | + + + + | STATUS OF UNIT | Presumed Transfused | | + + + + | EXPIRATION DATE | [id number] | | + + + + | BLOOD TYPE BARCODE | 5100 | | + + + + | BLOOD PRODUCT CODE | [id number] | | + + + + + + + | Specimen | Performing Laboratory | + + + | | [facility], TRANSFUSION MEDICINE [address] [facility] [facility] | | | [place] [facility] [address] | + + + PRODUCT - RED CELLS LEUKOREDUCED (09/01/2017 9:08 AM) + + + + | Component | Value | Ref Range | + + + + | PRODUCT DESCRIPTION | -1 RED BLOOD CELL ADENINE-SALINE ADDED | | | | LEUKOCYTE | | + + + + | PRODUCT UNIT # | [id number] | | + + + + | UNIT ABO | O | | + + + + | UNIT RH | POS | | + + + + | STATUS OF UNIT | Presumed Transfused | | + + + + | EXPIRATION DATE | [id number] | | + + + + | BLOOD TYPE BARCODE | 5100 | | + + + + | BLOOD PRODUCT CODE | [id number] | | + + + + + + + | Specimen | Performing Laboratory | + + + | | [facility], TRANSFUSION MEDICINE [address] [facility] [facility] | | | [place] [address] | + + + PRODUCT - RED CELLS LEUKOREDUCED (09/01/2017 9:08 AM) + + + + | Component | Value | Ref Range | + + + + | PRODUCT DESCRIPTION | -1 RED BLOOD CELL ADENINE-SALINE ADDED | | | | LEUKOCYTE | | + + + + | PRODUCT UNIT # | [id number] | | + + + + | UNIT ABO | O | | + + + + | UNIT RH | POS | | + + + + | STATUS OF UNIT | Presumed Transfused | | + + + + | EXPIRATION DATE | [id number] | | + + + + | BLOOD TYPE BARCODE | 5100 | | + + + + | BLOOD PRODUCT CODE | [id number] | | + + + + + + + | Specimen | Performing Laboratory | + + + | | [facility], TRANSFUSION MEDICINE [address] [place] [address] | | | [place] [address] | + + + PRODUCT - RED CELLS LEUKOREDUCED (09/01/2017 9:08 AM) + + + + | Component | Value | Ref Range | + + + + | PRODUCT DESCRIPTION | -1 RED BLOOD CELL ADENINE-SALINE ADDED | | | | LEUKOCYTE | | + + + + | PRODUCT UNIT # | [id number] | | + + + + | UNIT ABO | O | | + + + + | UNIT RH | POS | | + + + + | STATUS OF UNIT | Presumed Transfused | | + + + + | EXPIRATION DATE | [id number] | | + + + + | BLOOD TYPE BARCODE | 5100 | | + + + + | BLOOD PRODUCT CODE | [id number] | | + + + + + + + | Specimen | Performing Laboratory | + + + | | [facility], TRANSFUSION MEDICINE [address] [facility] [facility] | | | [place] [address] | + + + PRODUCT - FRESH FROZEN PLASMA (09/01/2017 9:08 AM) + + + + | Component | Value | Ref Range | + + + + | PRODUCT DESCRIPTION | PLASMA THAWED | | + + + + | PRODUCT UNIT # | [id number] | | + + + + | UNIT ABO | B | | + + + + | UNIT RH | POS | | + + + + | STATUS OF UNIT | Presumed Transfused | | + + + + | EXPIRATION DATE | [id number] | | + + + + | BLOOD TYPE BARCODE | 7300 | | + + + + | BLOOD PRODUCT CODE | [id number] | | + + + + + + + | Specimen | Performing Laboratory | + + + | | [facility], TRANSFUSION MEDICINE [address] [facility] | | | [place] [address] | + + + PRODUCT - FRESH FROZEN PLASMA (09/01/2017 9:08 AM) + + + + | Component | Value | Ref Range | + + + + | PRODUCT DESCRIPTION | PLASMA THAWED | | + + + + | PRODUCT UNIT # | [id number] | | + + + + | UNIT ABO | B | | + + + + | UNIT RH | POS | | + + + + | STATUS OF UNIT | Presumed Transfused | | + + + + | EXPIRATION DATE | [id number] | | + + + + | BLOOD TYPE BARCODE | 7300 | | + + + + | BLOOD PRODUCT CODE | [id number] | | + + + + + + + | Specimen | Performing Laboratory | + + + | | [facility], TRANSFUSION MEDICINE [address] | | | [place] [address] [address] | + + + PRODUCT - FRESH FROZEN PLASMA (09/01/2017 9:08 AM) + + + + | Component | Value | Ref Range | + + + + | PRODUCT DESCRIPTION | PLASMA THAWED | | + + + + | PRODUCT UNIT # | [id number] | | + + + + | UNIT ABO | B | | + + + + | UNIT RH | POS | | + + + + | STATUS OF UNIT | Presumed Transfused | | + + + + | EXPIRATION DATE | [id number] | | + + + + | BLOOD TYPE BARCODE | 7300 | | + + + + | BLOOD PRODUCT CODE | [id number] | | + + + + + + + | Specimen | Performing Laboratory | + + + | | [facility] TRANSF[facility]ION MEDICINE [address] [place] [address] | | | [place] [address] | + + + PRODUCT - FRESH FROZEN PLASMA (09/01/2017 9:08 AM) + + + + | Component | Value | Ref Range | + + + + | PRODUCT DESCRIPTION | THAWED APHERESIS PLASMA | | + + + + | PRODUCT UNIT # | [id number] | | + + + + | UNIT ABO | B | | + + + + | UNIT RH | POS | | + + + + | STATUS OF UNIT | Presumed Transfused | | + + + + | EXPIRATION DATE | [id number] | | + + + + | BLOOD TYPE BARCODE | 7300 | | + + + + | BLOOD PRODUCT CODE | [id number] | | + + + + + + + | Specimen | Performing Laboratory | + + + | | [facility] [address] [place] [address] | | | [place] [address] | + + + CT HEAD WO CONTRAST (09/01/2017 8:42 AM) + + + | Specimen | Performing Laboratory | + + + | | [facility] | + + + [...] + + | PRODUCT UNIT # | [id number] | | + + + + | UNIT ABO | O | | + + + + | UNIT RH | POS | | + + + + | STATUS OF UNIT | Presumed Transfused | | + + + + | EXPIRATION DATE | [id number] | | + + + + | BLOOD TYPE BARCODE | 5100 | | + + + + | BLOOD PRODUCT CODE | [id number] | | + + + + + + + | Specimen | Performing Laboratory | + + + | | [facility], TRANSFUSION MEDICINE [address] [place] [address] | | | [place] [address] | + + + LACTATE (09/01/2017 5:29 AM) + +-------+ + | Component | Value | Ref Range | + +-------+ + | LACTATE | 1.2 | mmol/L | + +-------+ + + + + | Specimen | Performing Laboratory | + + + | Blood | [facility], CORE [address] [facility] | | | [place] [address] | + + + + + | [...] [facility], CORE [address] [facility] | | | [place] [address] | + + + MRI SPINE CERVICAL/THORACIC WO CONTRAST (09/01/2017 3:53 AM) + + + | Specimen | Performing Laboratory | + + + | | [facility] RADIOLOGY VOICE RECOGNITION | + + + [...] | | injured. Discussed with trauma ICU staff internist office based [...] | >60 | >60 mL/min | | EQUATORIAL GUINEAN | | | + +---------+ + | EGFR NON | >60 | >60 mL/min | | -EQUATORIAL GUINEAN | | | + +---------+ + | [...] [facility], CORE [address] [facility] | | | [place] [address] | + + + + + | [...] Blood | [facility], [facility] [address] | | | [place] [address] | + + + + + | [...] [facility], CORE [address] [facility] | | | [place] [address] | + + + LACTATE (09/01/2017 1:32 AM) + +-------+ + | Component | Value | Ref Range | + +-------+ + | LACTATE | 1.4 | mmol/L | + +-------+ + + + + | Specimen | Performing Laboratory | + + + | Blood | [facility], CORE [address] [facility] | | | [place] [address] | + + + + + | [...] | | ------ CBC (HEMOGRAM) | | ONLY[[id number]] Abnormal Final | | result Please view [...] pleural spaced was performed. A 32 size English chest tube was placed into the | [...] resuscitation, taken directly to the CT scanner. UJLIO Bloom | | MD MIGUEL | + [...] + + + | | [facility], [place] [facility] [address] | | | [place] [address] | + + + + + | [...] | [facility], CORE [address] [place] [address] | | | [place] [address] | + + + LACTATE (08/31/2017 9:19 PM) + +-------+ + | Component | Value | Ref Range | + +-------+ + | LACTATE | 2.2 | mmol/L | + +-------+ + + + + | Specimen | Performing Laboratory | + + + | Blood | [facility], CORE [address] [facility] | | | [place] [address] | + + + + + | Narrative | + + | Reference Range: Venous blood:0.5 - 2.2 mmol/L Critical >= 4.0 mmol/L | | Arterial blood:0.5 - 1.6 mmol/L Critical >= 4.0 mmol/L | + + X-RAY SHOULDER 2 VIEWS LEFT (08/31/2017 8:56 PM) + + + | Specimen | Performing Laboratory | + + + | | [facility] RADIOLOGY VOICE RECOGNITION | + + + [...] Note | + + | 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, Jianshu In Interface - 09/01/2017 1:50 PM PDT [...] Laboratory | + + + | | [facility] RADIOLOGY VOICE RECOGNITION | + + + [...] Note | + + | 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, HeribertoYovigo Res In Interface - 09/01/2017 1:50 PM [...] | [facility], CORE [address] [facility] | | | [place] [address] | + + + X-RAY PORTABLE CHEST 1 VIEW (08/31/2017 7:07 PM) + + + | Specimen | Performing Laboratory | + + + | | [facility] VOICE RECOGNITION | + + + + + | Narrative | + + | STUDY: PA CHEST 1 VIEW HISTORY: Trauma COMPARISON: CT [...] Interface - 09/01/2017 1:44 PM PDT STUDY: PA CHEST 1 | | VIEWHISTORY: TraumaCOMPARISON: CT [...] [facility], CORE [address] [facility] | | | [place] [address] | + + + CTA NECK W [...] Note | + + | 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, Jianshu In Interface - 08/31/2017 8:22 PM PDT [...] rib, nondisplaced-Left | | 1st rib fracture, oqdxzjqggtqg-Gai-vbqedirzn left lateral 8th rib fracture-T12 fracture | [facility] [address] [facility] | | | [place] [address] | + + + ABO & RH [...] [address] | | | [place] [address] | + + + TYPE AND SCREEN [...] | ------ ABO & RH | | TYPE[[id number]] F | | inal result ANTIBODY | | SCREEN[[id number]] Fin | | al result Please view [...] [address] | | | [place] [address] | + + + THROMBELASTOGRAPH, POC (08/31/2017 [...] + + | Blood | [facility], POINT [facility] CARE TESTS [address] | | | [place] [address] | + + + + + | [...] signed on 09/02/2017 at 11:53 AM Fidelina R | | MD Cornelius | + + [...] | + + + | Blood | [facility] [address] | | | [place] [address] | + + + + + | [...] Shields MD | + + CHEM 8 W/CITLALY Mejía (08/31/2017 5:31 PM) + + + + [...] Laboratory | + + + | | [facility] - [facility], POINT [facility] CARE TESTS [address] [facility] [address] | | | [place] [address] | + + + ED BG-LAC,POC (08/31/2017 [...] [address] | | | [place] [address] | + + + PRODUCT - RED CELLS LEUKOREDUCED (08/31/2017 5:06 PM) + + + + | Component | Value | Ref Range | + + + + | PRODUCT DESCRIPTION | -1 RED BLOOD CELL ADENINE-SALINE ADDED | | | | LEUKOCYTE | | + + + + | PRODUCT UNIT # | [id number] | | + + + + | UNIT ABO | O | | + + + + | UNIT RH | POS | | + + + + | STATUS OF UNIT | Returned to Blood Bank | | + + + + | EXPIRATION DATE | [id number] | | + + + + | BLOOD TYPE BARCODE | 5100 | | + + + + | BLOOD PRODUCT CODE | [id number] | | + + + + + + + | Specimen | Performing Laboratory | + + + | | [facility], TRANSF[facility]ION MEDICINE [address] [facility] | | | [place] [address] | + + + PRODUCT - RED CELLS LEUKOREDUCED (08/31/2017 5:06 PM) + + + + | Component | Value | Ref Range | + + + + | PRODUCT DESCRIPTION | -1 RED BLOOD CELL ADENINE-SALINE ADDED | | | | LEUKOCYTE | | + + + + | PRODUCT UNIT # | [id number] | | + + + + | UNIT ABO | O | | + + + + | UNIT RH | POS | | + + + + | STATUS OF UNIT | Presumed Transfused | | + + + + | EXPIRATION DATE | [id number] | | + + + + | BLOOD TYPE BARCODE | 5100 | | + + + + | BLOOD PRODUCT CODE | [id number] | | + + + + + + + | Specimen | Performing Laboratory | + + + | | [facility], TRANSF[facility]ION MEDICINE [address] | | | [address] [place] [place] [address] | + + + PRODUCT - RED CELLS LEUKOREDUCED (08/31/2017 5:06 PM) + + + + | Component | Value | Ref Range | + + + + | PRODUCT DESCRIPTION | -1 RED BLOOD CELL ADENINE-SALINE ADDED | | | | LEUKOCYTE | | + + + + | PRODUCT UNIT # | [id number] | | + + + + | UNIT ABO | O | | + + + + | UNIT RH | POS | | + + + + | STATUS OF UNIT | Returned to Blood Bank | | + + + + | EXPIRATION DATE | [id number] | | + + + + | BLOOD TYPE BARCODE | 5100 | | + + + + | BLOOD PRODUCT CODE | [id number] | | + + + + + + + | Specimen | Performing Laboratory | + + + | | [facility], TRANSF[facility]ION MEDICINE [address] [facility] | | | [place] [address] | + + + PRODUCT - RED CELLS LEUKOREDUCED (08/31/2017 5:06 PM) + + + + | Component | Value | Ref Range | + + + + | PRODUCT DESCRIPTION | -1 RED BLOOD CELL ADENINE-SALINE ADDED | | | | LEUKOCYTE | | + + + + | PRODUCT UNIT # | [id number] | | + + + + | UNIT ABO | O | | + + + + | UNIT RH | POS | | + + + + | STATUS OF UNIT | Presumed Transfused | | + + + + | EXPIRATION DATE | [id number] | | + + + + | BLOOD TYPE BARCODE | 5100 | | + + + + | BLOOD PRODUCT CODE | [id number] | | + + + + + + + | Specimen | Performing Laboratory | + + + | | [facility] TRANSF[facility]ION MEDICINE [address] | | | [address] [facility] [address] | + + + PRODUCT - FRESH FROZEN PLASMA (08/31/2017 5:05 PM) + + + + | Component | Value | Ref Range | + + + + | PRODUCT DESCRIPTION | LIQUID PLASMA, IRRADIATED | | + + + + | PRODUCT UNIT # | [id number] | | + + + + | UNIT ABO | A | | + + + + | UNIT RH | POS | | + + + + | STATUS OF UNIT | Presumed Transfused | | + + + + | EXPIRATION DATE | [id number] | | + + + + | BLOOD TYPE BARCODE | 6200 | | + + + + | BLOOD PRODUCT CODE | [id number] | | + + + + + + + | Specimen | Performing Laboratory | + + + | | [facility], TRANSF[facility]ION MEDICINE [address] [facility] | | | [place] [facility] [address] | + + + PRODUCT - FRESH FROZEN PLASMA (08/31/2017 5:05 PM) + + + + | Component | Value | Ref Range | + + + + | PRODUCT DESCRIPTION | LIQUID PLASMA, IRRADIATED | | + + + + | PRODUCT UNIT # | [id number] | | + + + + | UNIT ABO | A | | + + + + | UNIT RH | POS | | + + + + | STATUS OF UNIT | Presumed Transfused | | + + + + | EXPIRATION DATE | [id number] | | + + + + | BLOOD TYPE BARCODE | 6200 | | + + + + | BLOOD PRODUCT CODE | [id number] | | + + + + + + + | Specimen | Performing Laboratory | + + + | | [facility], TRANSF[facility]ION MEDICINE [address] [facility] | | | [place] [facility] [address] | + + + PRODUCT - FRESH FROZEN PLASMA (08/31/2017 5:05 PM) + + + + | Component | Value | Ref Range | + + + + | PRODUCT DESCRIPTION | LIQUID PLASMA, IRRADIATED | | + + + + | PRODUCT UNIT # | [id number] | | + + + + | UNIT ABO | A | | + + + + | UNIT RH | POS | | + + + + | STATUS OF UNIT | Returned to Blood Bank | | + + + + | EXPIRATION DATE | [id number] | | + + + + | BLOOD TYPE BARCODE | 6200 | | + + + + | BLOOD PRODUCT CODE | [id number] | | + + + + + + + | Specimen | Performing Laboratory | + + + | | [facility], TRANSF[facility]ION MEDICINE [address] [facility] | | | [place] [facility] [address] | + + + PRODUCT - FRESH FROZEN PLASMA (08/31/2017 5:05 PM) + + + + | Component | Value | Ref Range | + + + + | PRODUCT DESCRIPTION | LIQUID PLASMA, IRRADIATED | | + + + + | PRODUCT UNIT # | [id number] | | + + + + | UNIT ABO | A | | + + + + | UNIT RH | POS | | + + + + | STATUS OF UNIT | Returned to Blood Bank | | + + + + | EXPIRATION DATE | [id number] | | + + + + | BLOOD TYPE BARCODE | 6200 | | + + + + | BLOOD PRODUCT CODE | [id number] | | + + + + + + + | Specimen | Performing Laboratory | + + + | | [facility], TRANSF[facility]ION MEDICINE [address] | | | [place] [address] | + + + CBC (HEMOGRAM) ONLY [...] | [facility], CORE [address] [place] [address] | | | [place] [address] | + + + BASIC METABOLIC SET [...] | >60 | >60 mL/min | | EQUATORIAL GUINEAN | | | + +---------+ + | EGFR NON | >60 | >60 mL/min | | -EQUATORIAL GUINEAN | | | + +---------+ + | [...] | Blood | [facility], CORE [address] | | | [place] [address] | + + + + + | [...] [facility], CORE [address] [facility] | | | [place] [address] | + + + + + | [...] | | ------ CBC (HEMOGRAM) | | ONLY[[id number]] Abnormal Final | | result Please view [...] | + + + | Blood | [facility], CORE [address] [facility] | | | [place] [address] | + + + PHOSPHORUS, PLASMA (08/31/2017 [...] [facility], CORE [address] [facility] | | | [place] [address] | + + + MAGNESIUM, PLASMA (08/31/2017 4:50 PM) + +---------+ + | Component | Value | Ref Range | + +---------+ + | MAGNESIUM,PLASMA | 1.5 (L) | 1.6 - 2.6 mg/dL | + +---------+ + + + + | Specimen | Performing Laboratory | + + + | Blood | [facility], CORE [address] [facility] | | | [place] [address] | + + + + + | [...] +---------+---+---+ | bacitracin ointment | Given | | 1 strip | | | | INTRAPROCEDURE PRN, Starting Tue | | 8 18:03 | | | | | 11/05/17 at 1803, Until Tue | | PDT | | | | | 11/05/17 [...] DAILY, First dose on Sat12/01/17 | | PDT | | | | [...] | | DAILY, First dose on Sho 11/07/17 | | PDT | | | | [...] | | +---+---+ + +-------+ +--------+---+---+ | jia JOHN) liquid 8.8 mg | Given | 12/05/2017 [...] thrombin 5000 unit topical | Given | | 5,000 | | | | solution INTRAPROCEDURE PRN, | | 8 16:32 | Units | | | | Starting 11/05/17 at 1632, | | PDT | | | | | Until 11/05/17 at 1906 | | | | [...]
--- OUTSIDE RECORDS SUMMARY | ~2017-12-10 | XMS | Encounter Summary ---
Demographics + + + | Address | [address] | | | [place] [address] | + + + | Home Phone [...] Author + + + | Author | [facility] | + + + | Organization | [facility] | + + + | Address | Unknown | + + + | Phone | Unavailable | + + + Support + + +---------+ + | Name | Relationship | Address | Phone | + + +---------+ + | Kaylie Baig | ECON | Unknown | | + + +---------+ + Care Team Providers + +------+ + | Care Portfolio Administrator Name | Role | Phone | [...] Anesthesia | 6A Intra Op [facility] | Jennifer Henderson CRNA | | | 2018 | Event | [facility] | [address] [facility] | | | | | Admitting Desk | [facility] | | | | | [facility] on the | [place] [address] | | | | | floor [address] [place] [address] | [phone] | | | | | [facility] | | | | | | [place], [place] | | | | | | [address] | | | +--------+ + + + + Anesthesia Record + + + + + | Procedure Name | Responsible | Anesthesia Start | Anesthesia Stop Time | | | Anesthesiologist | Time | | + + + + + | EXPLORATORY | Mick Leigh MD | 10/12/17 1433 | 10/12/17 1910 | | LAPAROTOMY (N/A | | | | | Abdomen) [...] | | | 4 | | reviewed, PARQ held, anesthetic plan [...] +----+---+ + + | | 1 | Pause | | | | 5 | | [...] | + + + + + | No agents on file. | + + + + | No blood administrations on file. | + + +--------+ + + + | Type | Details | Placement | Removal | +--------+ + + + | Incisi | 09/07/171999; Left; Posterior, | 09/07/171999 by | 10/13/17136 by | | on | Lateral; chest (incision from | Shama Abbasi RN | Austen Weaver RN | | | previous chest tube); 10/13/17; | | | | | 136 | | | +--------+ + + + [...] centrally accessed); | | | | | [id number]; 10/22/17; 1542; | | | | | [...] | 10/10/17; 08; Nay Hernandez MD; | 10/10/17835 by | 11/05/17 170 by | | [...] + + + | Urethr | 10/12/17; Abimbola Seth); 1; Cabrera; | 10/12/17 0000 by | 10/14/17 0458 by | | al | 16 Fr.; 5 mL; 10/14/17; 0458; Per | Valeria Seth RN | Austen Weaver RN | | Cathet | protocol | | | | er | | | | +--------+ + + + | Drain | 10/12/17; (); Other (Comment) | 10/12/17 0000 by | 10/12/17 1732 by | | | ([place] 19fr channel drain); | Valeria Seth RN | Doreen Lopez RN | | | 10/12/17; 1732 | | | +--------+ + + + [...] by | | g Tube | G-tube (Gabriel Tube); Abdomen UL; | Doreen Lopez RN | RT Mustapha | | | 24; 10/22/17; 1440; Per order | | | +--------+ + + + in this encounter Social History + +-------+ [...] Treatment Not on fileas of this encounter Results WALDO OWENST (10/12/2017 3:12 PM) + + | Narrative | + + | Patti Fotre MD 10/12/2017 3:13 PM Procedure Reason for Intubation: For | | surgical procedure, Location Performed: [place] , Patient was preoxygenated Mask | | Ventilation Grade 0 - Ventilation by mask not attempted Intubation Blade type: | | Other , Atraumatic laryngoscopy: Atraumatic Laryngoscopy, Intubation adjuncts: Stylet | | used , Laryngoscopic view: Grade I, Fiberoptics used: Glidescope , Number of Attempts: | | 1, Positive for EtCO2: Yes, Breath sounds: Bilateral and equal ETT Ett | | Adult: Single-lumen cuffed ETT Size: 7.5 ETT secured with: adhesive tape Depth | | at Teeth: 22 Cm Narrative Attending physically present Performed by | | Resident | + + in this encounter Visit Diagnoses Not on filein this encounter Administered Medications + +--------+ +------+------+------+ | Medication Order | MAR | Action | Dose | Rate | Site | | | Action | Date | | | | + +--------+ +------+------+------+ | dexamethasone (DECADRON) | Given | | 4 mg | | | | injection intravenous, | | 8 15:28 | | | | | INTRAPROCEDURE PRN, Starting Sat | | PDT | | | | | 10/12/17 at 1528, Until Sat | | | | | | | 10/12/17 at 1855 | | | | | | + +--------+ +------+------+------+ +---+---+ | | | +---+---+ + +-------+ +--------+---+---+ | fentaNYL citrate (PF) | Given | | 50 mcg | | | | (SUBLIMAZE) injection | | 8 15:51 | | | | | intravenous, INTRAPROCEDURE PRN, | | PDT | | | | | Starting 10/12/17 at 1522, | | | | | | | Until 10/12/17 at 1855 | | | | | | + +-------+ +--------+---+---+ +-------+ +--------+---+---+ | Given | | 50 mcg | | | | | 8 16:17 | | | | | | PDT | | | | +-------+ +--------+---+---+ | Given | | 50 mcg | | | | | 8 17:17 | | | | | | PDT | | | | +-------+ +--------+---+---+ +---+---+ | | | +---+---+ + +-------+ +--------+---+---+ | HYDROmorphone (DILAUDID) | Given | | 0.5 mg | | | | injection INTRAPROCEDURE PRN, | | 8 15:55 | | | | | Starting 10/12/17 at 1555, | | PDT | | | | | Until 10/12/17 at 1855 | | | | | | + +-------+ +--------+---+---+ +---+---+ | | | +---+---+ + +---------+ +---+---+---+ | lactated Ringers IV | New Bag | | | | | | INTRAPROCEDURE CONTINUOUS PRN, | | 8 17:00 | | | | | Starting 10/12/17 at 1700, | | PDT | | | | | Until 10/12/17 at 1855 | | | | | | + +---------+ +---+---+---+ + + +---+---+---+ | given by anesthesiology | | | | | | | 8 17:37 | | | | | | PDT | | | | + + +---+---+---+ | given by anesthesiology | | | | | | | 8 18:18 | | | | | | PDT | | | | + + +---+---+---+ +---+---+ | | | +---+---+ + +-------+ +---------+---+---+ | PHENYLEPHrine 100 mcg/mL IV | Given | | 100 mcg | | | | syringe INTRAPROCEDURE PRN, | | 8 15:40 | | | | | Starting 10/12/17 at 1540, | | PDT | | | | | Until 10/12/17 at 1855 | | | | | | + +-------+ +---------+---+---+ +---+---+ | | | +---+---+ + +---------+ + +--------+---+ | propofol (DIPRIVAN) injection | New Bag | | 30 | 10.82 | | | INTRAPROCEDURE CONTINUOUS PRN, | | 8 18:27 | mcg/kg/m | mL/hr | | | Starting 10/12/17 at 1827, | | PDT | in | | | | Until 10/12/17 at 1855 | | | | | | + +---------+ + +--------+---+ + + + +-------+---+ | Rate/Dose Change | | 20 | 7.21 | | | | 8 18:31 | mcg/kg/m | mL/hr | | | | PDT | in | | | + + + +-------+---+ +---+---+ | | | +---+---+ + +-------+ +--------+---+---+ | propofol INTRAPROCEDURE PRN, | Given | | 150 mg | | | | Starting 10/12/17 at 1450, | | 8 14:50 | | | | | Until 10/12/17 at 1855 | | PDT | | | | + +-------+ +--------+---+---+ +---+---+ | | | +---+---+ + +-------+ +-------+---+---+ | rocuronium (ZEMURON) injection | Given | | 20 mg | | | | intravenous, INTRAPROCEDURE PRN, | | 8 15:50 | | | | | Starting 10/12/17 at 1457, | | PDT | | | | | Until 10/12/17 at 1855 | | | | | | + +-------+ +-------+---+---+ +-------+ +-------+---+---+ | Given | | 20 mg | | | | | 8 16:30 | | | | | | PDT | | | | +-------+ +-------+---+---+ | Given | | 10 mg | | | | | 8 18:14 | | | | | | PDT | | | | +-------+ +-------+---+---+ +---+---+ | | | +---+---+ + + + +---+---+---+ | sodium chloride 0.9% IV | given by | | | | | | infusion INTRAPROCEDURE | | 8 15:56 | | | | | CONTINUOUS PRN, Starting Sat | anesthes | PDT | | | | | 10/12/17 at 1431, Until Sat | iology | | | | | | 10/12/17 at 1855 | | | | | | + + + +---+---+---+ + + +---+---+---+ | given by anesthesiology | | | | | | | 8 16:19 | | | | | | PDT | | | | + + +---+---+---+ | given by anesthesiology | | | | | | | 8 16:59 | | | | | | PDT | | | | + + +---+---+---+ +---+---+ | | | +---+---+ + +-------+ +--------+---+---+ | SUCCINYLCHOLINE CHLORIDE 20 | Given | | 140 mg | | | | MG/ML INJ (PROSED/RSI) | | 8 14:51 | | | | | INTRAPROCEDURE PRN, Starting Sat | | PDT | | | | | 10/12/17 at 1451, Until Sat | | | | | | | 10/12/17 at 1855 | | | | | | + +-------+ +--------+---+---+ +---+---+ | | | +---+---+ in this encounter"
--- OUTSIDE RECORDS SUMMARY | ~2017-12-10 | XMS | Encounter Summary ---
Demographics + + + | Address | [address] | | | [place] [address] | + + + | Home Phone | | + + + | Preferred Language | Unknown | + + + | Marital Status | Single | + + + | Christian Affiliation | PEN | + + + | Race | or | + + + | Ethnic Group | Not or | + + + Author + + + | Author | [facility] [employer] [facility] | + + + | Organization | [facility] [employer] [facility] | + + + | Address | Unknown | + + + | Phone | Unavailable | + + + Support + + +---------+ + | Name | Relationship | Address | Phone | + + +---------+ + | Kaylie Baig | ECON | Unknown | | + + +---------+ + Care Team Providers + +------+ + | Care Scrap Dealer Name | Role | Phone | + [...] | +--------+ + + + + | 10/23/ | Anesthesia | 6A Intra Op [facility] | Patti Forte MD | | | 2018 | Event | [facility] | [address] [facility] | | | | | Admitting Desk | [facility] | | | | | [facility] on the | [place] [address] | | | | | floor [address] [place] [address] | [phone] | | | | | [facility] | | | | | | [place], [place] | | | | | | [address] | | | +--------+ + + + + Anesthesia Record + + + + + | Procedure Name | Responsible | Anesthesia Start | Anesthesia Stop Time | | | Anesthesiologist | Time | | + + + + + | ESOPHAGOGASTRODUODEN | Moncho Arthur MD | 10/24/17 1104 | 10/24/17 1222 | | OSCOPY (N/A Mouth) | | | | + [...] | | | 1 | | reviewed, PARAnnalisa held, anesthetic plan [...] 1 | Pause | | | | 1 | | [...] + | | 1 | Note | Wakeup with [facility] [place] | | | 2 [...] | + + + | fentaNYL | 50 mcg | + + + | lidocaine 2% | 60 mg | + + + | propofol | 140 mg | + + + | rocuronium | 40 mg | + + + | ePHEDrine | 5 mg | + + + | ondansetron | 4 mg | + + + | LR | Cannot be | | | calculated | + + + | sugammadex (BRIDION) IV | 306 mg | + + + + + | [...] parietal; 11/05/17; | Katrin Watson RN | eDbby Lewis, | | | 1702 | | [...] | abdomen; 11/17/17; 0200 | Shante Justin RN | Brissa Yost RN | +--------+ + + + | Feedin | 10/22/17; 1441; Dr. Goodwin; | 10/22/17 1441 by | 10/24/17 1151 by | | g Tube | G-tube; Abdomen UL; 24; tolerated | Amelia Hart, RT | Beatris Razo RN | | | well; 10/24/17; 1151 | | | +--------+ + + + | Periph | 10/23/17; 2159; VAT; Left; | 10/23/172158 by | 10/25/17 [...] on fileas of this encounter Results WALDO ISLAS (10/24/2017 11:43 AM) + + | Narrative | + + | Loi Henderson MD 10/24/2017 11:59 AM Procedure Reason for Intubation: For | | surgical procedure, Location Performed: [place] , Patient was preoxygenated Mask | | Ventilation Grade 1 - Ventilated by mask Intubation Atraumatic laryngoscopy: | | Atraumatic Laryngoscopy, Intubation adjuncts: N/A , Laryngoscopic view: N/A, | | Fiberoptics used: Glidescope , Number of Attempts: 1, Positive for EtCO2: Yes, Breath | | sounds: Bilateral and equal ETT Ett Adult: Single-lumen cuffed ETT Size: | | 7.5 ETT secured with: adhesive tape Depth at Lip: 23 Cm Airway leak: | | No Narrative Attending physically present Performed by Resident Pt's helmet | | kept in place, and front of c-collar removed with in-line stabilization held by | | circulating RN throughout airway management. G1M, Easy view obtained with glidescope | | without any neck extension, and with minimal jaw excursion, and 7.5 ETT passed easily | | through open cords, Atraumatic Front of C-collar replaced immediately after | | intubation | + + in this encounter Visit Diagnoses Not on filein this encounter Administered Medications + +--------+ +------+------+------+ | Medication Order | MAR | Action | Dose | Rate | Site | | | Action | Date | | | | + +--------+ +------+------+------+ | ePHEDrine injection | Given | | 5 mg | | | | intravenous, INTRAPROCEDURE PRN, | | 8 11:31 | | | | | Starting Sho 10/24/17 at 1131, | | PDT | | | | | Until Sho 10/24/17 at 1214 | | | | | | + +--------+ +------+------+------+ +---+---+ | | | +---+---+ + +-------+ +--------+---+---+ | fentaNYL citrate (PF) | Given | | 50 mcg | | | | (SUBLIMAZE) injection | | 8 11:21 | | | | | intravenous, [...] Bag | | | | | | intravenous, INTRAPROCEDURE | | 8 11:04 | | | | | CONTINUOUS PRN, Starting Sho | | PDT | | | | | 10/24/17 at 1104, Until Sho | | | | | | | 10/24/17 at 1214 | | | | | | + +---------+ +---+---+---+ + + +---+---+---+ | given by anesthesiology | | | | | | | 8 11:50 | | | | | | PDT | | | | + + +---+---+---+ +---+---+ | | | +---+---+ + +-------+ +-------+---+---+ | lidocaine PF (XYLOCAINE MPF) 20 | Given | | 60 mg | | | | mg/mL (2 %) injection | | 8 11:24 | | | | | INTRAPROCEDURE PRN, Starting Sho | | PDT | | | | | 10/24/17 at 1124, Until Sho | | | | | | | 10/24/17 at 1214 | | | | | | + +-------+ +-------+---+---+ +---+---+ | | | +---+---+ + +-------+ +------+---+---+ | ondansetron (ZOFRAN) injection | Given | | 4 mg | | | | intravenous, INTRAPROCEDURE PRN, | | 8 12:03 | | | | | Starting Sho 10/24/17 at 1203, | | PDT | | | | | Until Sho 10/24/17 at 1214 | | | | | | + +-------+ +------+---+---+ +---+---+ | | | +---+---+ + +-------+ +--------+---+---+ | propofol intravenous, | Given | | 140 mg | | | | INTRAPROCEDURE PRN, Starting Sho | | 8 11:25 | | | | | 10/24/17 at 1125, Until Sho | | PDT | | | | | 10/24/17 at 1214 | | | | | | + +-------+ +--------+---+---+ +---+---+ | | | +---+---+ + +-------+ +-------+---+---+ | rocuronium (ZEMURON) injection | Given | | 40 mg | | | | intravenous, INTRAPROCEDURE PRN, | | 8 11:25 | | | | | Starting Sho 10/24/17 at 1125, | | PDT | | | | | Until Sho 10/24/17 at 1214 | | | | | | + +-------+ +-------+---+---+ +---+---+ | | | +---+---+ + +-------+ +--------+---+---+ | sugammadex (BRIDION) IV | Given | | 306 mg | | | | INTRAPROCEDURE PRN, Starting Sho | | 8 12:04 | | | | | 10/24/17 at 1204, Until Sho | | PDT | | | | | 10/24/17 at 1214 | | | | | | + +-------+ +--------+---+---+ +---+---+ | | | +---+---+ in this encounter"
--- OUTSIDE RECORDS SUMMARY | ~2017-12-10 | XMS | Encounter Summary ---
Demographics + + + | Address | [address] | | | [place] [address] | + + + | Home Phone [...] | Author | [facility] [employer] [facility] | + + + | Organization | [facility] [employer] [facility] [...] Team Providers + +------+ + | Care Tmd Teacher Name | Role | Phone | + +------+ + | No Pcp Per Patient | PCP | Unavailable | + +------+ + Encounter Details +--------+ + + + + | Date | Type | Department | Care Team | Description | +--------+ + + + + | 09/24/ | Procedure | [facility] [address] | | | | 2017 | Pass | [address] | | | | | | [id number] [facility] | | | | | | [facility], | | | | | | [place] [address] | | | | | | [phone] | | | +--------+ + + + [...]
--- OUTSIDE RECORDS SUMMARY | ~2017-12-10 | XMS | Encounter Summary ---
Demographics + + + | Address | [address] | | | [place] [address] | + + + | Home Phone [...] [facility] [employer] [facility] | + + + | Organization | [facility] [employer] [facility] | [...] Team Providers + +------+ + | Care Molder Machine Name | Role | Phone | + +------+ + | No Pcp Per Patient | PCP | Unavailable | + +------+ + Encounter Details +--------+ + + + + | Date | Type | Department | Care Team | Description | +--------+ + + + + | 09/11/ | Procedure | [facility] [address] | | | | 2017 | Pass | [address] | | | | | | [id number] [facility] | | | | | | [facility], | | | | | | [place] [address] | | | | | | [phone] | | | +--------+ + + + [...]
--- OUTSIDE RECORDS SUMMARY | ~2017-12-10 | XMS | Encounter Summary ---
Demographics + + + | Address | [address] | | | [place] [address] | + + + | Home Phone [...] + + + | Author | [facility] [employer] [facility] | + + + | Organization | [facility] [employer] [facility] | + + + | Address | Unknown | + + + | Phone | Unavailable | + + + Support + + +---------+ + | Name | Relationship | Address | Phone | + + +---------+ + | Kaylie Baig | ECON | Unknown | | + + +---------+ + Care Team Providers + +------+ + | Care Micro Computer Data Processor Name | Role | Phone | + +------+ + | No Pcp Per Patient | PCP | Unavailable | + +------+ + Encounter Details +--------+ + + + + | Date | Type | Department | Care Team | Description | +--------+ + + + + | 10/22/ | Procedure | [facility] [address] | | | | 2017 | Pass | [address] | | | | | | [id number] [facility] | | | | | | [facility], | | | | | | [place] [address] | | | | | | [phone] | | | +--------+ + + + [...]
--- OUTSIDE RECORDS SUMMARY | ~2017-12-10 | XMS | Encounter Summary ---
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 and agree with the assessement and plan a s outlined in her note. Will consider changing to bolus TF. Plan Gabriel-oconnor tube next week. Chaz Munoz MD, FACS Machining Department Supervisor, Trauma, Critical Care and Acute Care Surgery [...] p atient unable to come out fo BEAN ROASTER for now Resolved or chronic issues/Plan: #Previous [...] issues, including restraints. Venita Pruitt PA-[place] [phone] [place] [phone] [facility] [place] [address] [phone] Associated attestation - Eris Cunningham MD - 10/17/2017 10:13 AM PDTI was present and rou nded with the Advanced Practice Provider today . I interviewed and examined the patient. I reviewed the history, as documented today. I agree with the ASHLEY assessment and plan. TBI has remained stable. On lovenox. Will continue haldol per psych.. ERIS CUNNINGHAM MD [facility] [address] [place] [address] [place] [address] Venita Pruitt PA-C - 10/05/2017 8:38 AM [...] p atient unable to come out fo BEAN ROASTER for now Resolved or chronic issues/Plan: #Previous [...] by patient, but wound remains duke n/dry/intact. Burton removed 09/17. #Left hemothorax Chest tube placed [...] issues, including restraints. Venita Pruitt PA-C [place] [phone] [facility] & [place] [address] [place] [facility] [place] [address] [phone] Associated attestation - Shlomo Rosenthal MD - 10/06/2017 7:28 AM PDTFormatting of this note m ay be different from the original. I saw and examined Artemio Temple ([id number]) with the TRAUMA team on 10/05/2017. I [...] incen tive spirometry for pulmonary toliet. manager logistic for disposition planning and placement. Shlomo Rosenthal MD Colorist Division of Trauma and Critical Care Venita [...] (baseline from previous TBI ) Neck: in Holcomb collar Respiratory: CTA b.l CV: RRR GI: [...] p atient unable to come out fo BEAN ROASTER for now Resolved or chronic issues/Plan: #Previous [...] by patient, but wound remains duke n/dry/intact. Burton removed 09/17. #Left hemothorax Chest tube placed [...] issues, including restraints. Venita Pruitt PA-[place] [phone] [place] [phone] [facility] & [address] [place] [facility] [phone] Associated attestation - Fidelina Shields MD - [...] and only enteral access. Fidelina Shields MD Machining Department Supervisor Division of Trauma, Critical Care and Acute Care Surgery Office: [phone] Pager: [phone] Leonor Torres ACNP - 10/03/2017 3:13 PM [...] (baseline from previous TBI ) Neck: in Holcomb collar Respiratory: CTA bilaterally, no distress CV: [...] p atient unable to come out fo BEAN ROASTER for now Resolved or chronic issues/Plan: Previous [...] by patient, but wound remains duke n/dry/intact. Burton removed 09/17. #Left hemothorax Chest tube placed [...] PDTAttending: I saw and examined Artemio Temple ([id number]) with CB Hair on morning rounds 10/03 and agree with the assessment and plan as outlined in this note and participated in the planning of care. Mental status is slightly better, remains sedated but he is interactive and at least somewh at oriented. Enteral nutrition advancing and, as approaches goal, will turn TPN off. Place ment remains a significant issue. Fidelina Shields MD Machining Department Supervisor Division of Trauma, Critical Care and Acute Care Surgery Office: [phone] Pager: [phone] Josiah Banegas PA-C - 10/03/2017 12:58 PM [...] the C-collar when in bed then the BEAN ROASTER when out of bed until 12/01/17. JOSIAH BANEGAS PA-C [facility] [address] [facility] [address] [place] [address] Associated attestation - Magdiel Stock MD - 10/04/2017 6:02 PM PDTI performed a history a nd physical examination of the patient and discussed the management with the advanced practi ce provider, Josiah Banegas PA-C. I reviewed the advanced practice provider's note and agree w ith the plan of care as documented. Continue cervical collar and BEAN ROASTER for 3 months to ensure fracture healing and prevent development of post-fracture cervical kyphosis. Magdiel Stock MD Machining Department Supervisor Department of Neurological Surgery [facility] [place] Torsten Sherine E, AGACN - 10/02/2017 12:54 [...] (baseline from previous TBI ) Neck: in Holcomb collar Respiratory: CTA bilaterally, lungs symmetrical, equal chest wall rise, no retractions CV: RRR GI: non tender, soft, active BS, last BM 09/30 : Patient voiding without difficulty Extremities: no peripheral edema, wiggles toes and toes pink and well perfused Musculoskeletal: 5/5 clearing house clerk strength on right, 3/5 clearing house clerk strength on left FEN: on TPN, transitioning [...] AMS & delirium - numerous evaluations by NEWSPAPER ILLUSTRATOR with trials of PO - now s/p [...] . - C-collar at all times, use BEAN ROASTER when OOB - Follow-up with Neurosurgery on 10/21 with repeat X-rays #Blunt abdominal trauma #Splenic laceration S/p laparotomies x2. Fascia closed 09/02 Wound vac removed by patient, but wound remains duke n/dry/intact. Burton removed 09/17. #Left hemothorax Chest tube placed [...] will decrease scheduled [place]dol[place] Pg [phone] Associated attestation - Fidelina Shields MD - 10/02/2017 4:40 PM PDTAttending: I saw and examined Artemio Temple ([id number]) with KESHAWN Alexander on mornin g rounds [...] drawn back to midline position. May need halfway enteral access , but is ~4 weeks s/p damage control laparotomy and risk is higher now than it will be in 7- 14 days and if swallow is not improving then will place prior to DC Fidelina Shields MD Machining Department Supervisor Division of Trauma, Critical Care and Acute Care Surgery Office: [phone] Pager: [phone] Sherine Sarmiento AGACNP - 10/01/2017 7:27 AM [...] (baseline from previous TBI ) Neck: in Holcomb collar Respiratory: CTA bilaterally, lungs symmetrical, equal chest wall rise, no retractions CV: RRR GI: non tender, soft, active BS, last BM 09/30 : Patient voiding without difficulty Extremities: no peripheral edema, wiggles toes and toes pink and well perfused Musculoskeletal: 5/5 clearing house clerk strength on right, 3/5 clearing house clerk strength on left FEN: on TPN Heme/ID: [...] AMS & delirium - numerous evaluations by NEWSPAPER ILLUSTRATOR with trials of PO - now s/p modified barium swallow x2 which indicates aspiration - continue NPO - NEWSPAPER ILLUSTRATOR reports that patient working on tongue strength [...] . - C-collar at all times, use BEAN ROASTER when OOB - Follow-up with Neurosurgery on 10/21 with repeat X-rays #Blunt abdominal trauma #Splenic laceration S/p laparotomies x2. Fascia closed 09/02 Wound vac removed by patient, but wound remains duke n/dry/intact. Burton removed 09/17. #Left hemothorax Chest tube placed [...] trauma team and [place]g [phone] Associated attestation - Fidelina Shields MD - 10/02/2017 4:40 PM PDTAttending: I saw and examined Artemio Temple ([id number]) with KESHAWN Alexander on mornin g rounds 10/01/17 and agree with the assessment and plan as outlined in this note and partic ipated in the planning of care. Will trial DHT placement today, CT head unchanged. Suspect somnolence is medication side ef fect and, if persistent, may need to wean antipsychotic doses. Fidelina Shields MD Machining Department Supervisor Division of Trauma, Critical Care and Acute Care Surgery Office: [phone] Pager: [phone] Christian Kelley PA-C - 09/30/2017 12:21 PM [...] Fixed and dilated on left Neck: in Holcomb collar Respiratory: CTA bilaterally, lungs symmetrical, equal chest wall rise, no retractions CV: RRR GI: non tender, soft, active BS, last BM 09/30 : Patient voiding without difficulty Extremities: no peripheral edema, wiggles toes and toes pink and well perfused Musculoskeletal: 5/5 clearing house clerk strength on right, 3/5 clearing house clerk strength on left FEN: on TPN Heme/ID: [...] AMS & delirium - numerous evaluations by NEWSPAPER ILLUSTRATOR with trials of PO - now s/p modified barium swallow x2 which indicates aspiration - continue NPO - NEWSPAPER ILLUSTRATOR reports that patient working on tongue strength [...] Continue TPN at this time - consider Gabriel-coonnor tube via open approach Resolved or chronic issues/Plan: #C7 bilateral lamina fractures #C6-T2 spinous process fractures Neurosurgery consulted. Non-operative management. Upright cervical X-rays completed on 09/14 . - C-collar at all times, use BEAN ROASTER when OOB - Follow-up with Neurosurgery on [...] PDTAttending: I saw and examined Artemio Temple ([id number]) with Christian Kelley PA-C on morning rounds 09/30 and agree with the assessment and plan as outlined in this note and participated in the planning of care. Mentally slower this morning, but non-focal. Received haldol overnight for sleep. Repeat head CT was unchanged so suspect etiology of slowed responsiveness is the antipsychotic dose . NEWSPAPER ILLUSTRATOR believes that, once collar off, may be able to take PO more effectively and thus will hold off on surgical feeding access. TPN is a temporary solution and if patient remains kaye nable will trial DHT tomorrow. Working with psychiatry for medication recommendations. Fidelina Shields MD Machining Department Supervisor Division of Trauma, Critical Care and Acute Care Surgery Office: [phone] Pager: [phone] Josiah Banegas PA-C - 09/30/2017 8:23 AM PDTBrief Neurosurgery Wound Check: Wound is dry, without erythema, not fluctuant. No acute swelling. Nylon in place. Will plan to follow peripherally for wound checks and remove nylons on 10/09. JOSIAH BANEGAS PA-C [facility] [address] [facility] [address] [place] [address] Christian Kelley PA-C - 09/29/2017 7:15 AM PDTFormatting of this note may be different from the original. Trauma Acute Care - Progress Note Name: ARTEMIO TEMPLE HPI: Artemio Tmeple is a67 y.o. male with active [...] and EOMs intact to exam Neck: in Holcomb collar Respiratory: CTA bilaterally, lungs symmetrical, equal [...] AMS & delirium - numerous evaluations by NEWSPAPER ILLUSTRATOR with trials of PO - now s/p [...] . - C-collar at all times, use BEAN ROASTER when OOB - Follow-up with Neurosurgery on [...] PDTAttending: I saw and examined Artemio Temple ([id number]) with Christian Kelley PA-C on morning rounds 09/29 and agree with the assessment and plan as outlined in this note and participated in the planning of care. Late entry for 09/29/17. Persistent alterations in conscious and dysphagia. Hopefully with ongoing speech therapy a nd when clear to take c-collar off, will improve ability to take PO. While TPN is not an opt imal termite treater helper strategy, would prefer not to place surgical feeding tube if possible given r elatively recent damage control laparotomy and high risk of Mr. Temple pulling it out. Have tried DHT several times and it seems to worsen delirium and he pulls it out frequently. Tit ration of haldol in conjunction with psychiatry. Fidelina Shields MD Machining Department Supervisor Division of Trauma, Critical Care and Acute Care Surgery Office: [phone] Pager: [phone] Christian Kelley PA-C - 09/28/2017 1:01 PM [...] he said, who, ariel? And then the MECHATRONICS TECHNICIAN helped him make a call to her. [...] and EOMs intact to exam Neck: in Holcomb collar Respiratory: CTA bilaterally, lungs symmetrical, equal [...] very agitated today. - EKG today with [place] QTc calculated to be 428 - optimize [...] AMS & delirium - numerous evaluations by NEWSPAPER ILLUSTRATOR with trials of PO - now s/p [...] . - C-collar at all times, use BEAN ROASTER when OOB - Follow-up with Neurosurgery on 10/21 with repeat X-rays #Blunt abdominal trauma #Splenic laceration S/p laparotomies x2. Fascia closed 09/02 Wound vac removed by patient, but wound remains duke n/dry/intact. Burton removed 09/17. #Left hemothorax Chest tube placed [...] to communicate more toyoselin Munoz MD, FACS Machining Department Supervisor, Trauma, Critical Care and Acute Care Surgery Chaz Munoz MD - 09/28/2017 10:13 AM PDTTrauma Staff Seen and examined this AM with team. I have concerns abotu behaviour, as he is consistently threatening RN and ancillary staff, even attempting swings. Behavior seems worse at night. I would favor increasing night time Haldol dose, and following EKGs. Chaz Munoz MD, FACS Machining Department Supervisor, Trauma, Critical Care and Acute Care Surgery [...] Dallin Bourgeois MD Neurosurgery PGY1 | Pager #[phone] Christian Kelley PA-C - 09/27/2017 7:31 AM [...] able to have a linear conversation briefly NEWSPAPER ILLUSTRATOR requesting repeat barium swallow Current meds: I [...] incision healing , suture c/d/I Neck: in BEAN ROASTER Respiratory: unlabored on room air, lungs symmetrical, [...] AMS & delirium - numerous evaluations by NEWSPAPER ILLUSTRATOR with trials of PO - now s/p [...] . - C-collar at all times, use BEAN ROASTER when OOB - Follow-up with Neurosurgery on 10/21 with repeat X-rays #Blunt abdominal trauma #Splenic laceration S/p laparotomies x2. Fascia closed 09/02 Wound vac removed by patient, but wound remains duke n/dry/intact. Burton removed 09/17. #Left hemothorax Chest tube placed [...] cotinue TPN for now. ERIS CUNNINGHAM MD [facility] [address] [place] [address] Christian Kelley PA-C - 09/26/2017 6:48 AM [...] posterior scalp crani incision c/d/I Neck: in Holcomb collar Respiratory: unlabored on room air CV: [...] AMS & delirium - numerous evaluations by NEWSPAPER ILLUSTRATOR with trials of PO - now s/p [...] . - C-collar at all times, use BEAN ROASTER when OOB - Follow-up with Neurosurgery on [...] Continue NPO and TPN. ERIS CUNNINGHAM MD [facility] [address] [facility] [address] [place] [address] Christian Kelley PA-C - 09/25/2017 7:49 AM [...] HEENT: EOMs intact to exam Neck: in BEAN ROASTER brace Respiratory: unlabored on room air CV: [...] AMS & delirium - numerous evaluations by NEWSPAPER ILLUSTRATOR with trials of PO - now s/p [...] . - C-collar at all times, use BEAN ROASTER when OOB - Follow-up with Neurosurgery on 10/21 with repeat X-rays #Blunt abdominal trauma #Splenic laceration S/p laparotomies x2. Fascia closed 09/02 Wound vac removed by patient, but wound remains duke n/dry/intact. Burton removed 09/17. #Left hemothorax Chest tube placed [...] LFTS wnl. Continue TPN. ERIS CUNNINGHAM MD [facility] [address] [place] [address] Christian Kelley PA-C - 09/24/2017 11:07 AM [...] with agitation Having difficulty swallowing again - NEWSPAPER ILLUSTRATOR to re-eval and obtain barium swallow Current [...] HEENT: EOMs intact to exam Neck: in BEAN ROASTER brace Respiratory: CTA bilaterally, lungs symmetrical, equal chest wall rise, no retractions CV: RRR GI: non distended, last BM 09/23 : good urine output Extremities: SCD's in place, no peripheral edema, wiggles toes and toes pink and well perfu sed Musculoskeletal: 5/5 strength in bilateral clearing house clerk (but with slightly weaker on left) , [...] likely 2/2 AMS & delirium - Failed NEWSPAPER ILLUSTRATOR eval 09/19 & 09/20, made NPO & dobhoff reinserted 09/21 but pulled overnight - Per NEWSPAPER ILLUSTRATOR on 09/21, ok for therapeutic pureed with [...] . - C-collar at all times, use BEAN ROASTER when OOB - Follow-up with Neurosurgery on [...] Start abx for dehiscence. ERIS CUNNINGHAM MD [facility] [address] [place] [address] Ginette Campos PA-C - 09/24/2017 9:31 AM [...] 4 extremities Unable to assess drift. Motor: Radio Installer Automobile Bicep Tricep Delt R 5 5 5 [...] further questions or concerns. Ginette Campos PA-C [facility] [address] [facility] [address] [place] [address] Pg [phone] Sherine Sarmiento, [facility] - 09/23/2017 6:32 AM PDTFormatting of [...] hiscence, draining minimal serosang fluid Neck: in BEAN ROASTER brace Respiratory: unlabored on room air CV: [...] likely 2/2 AMS & delirium - Failed NEWSPAPER ILLUSTRATOR eval 09/19 & 09/20, made NPO & dobhoff reinserted 09/21 but pulled overnight - Per NEWSPAPER ILLUSTRATOR on 09/21, ok for therapeutic pureed with [...] . - C-collar at all times, use BEAN ROASTER when OOB - Follow-up with Neurosurgery on 10/21 with repeat X-rays #Blunt abdominal trauma #Splenic laceration S/p laparotomies x2. Fascia closed 09/02 Wound vac removed by patient, but wound remains duke n/dry/intact. Burton removed 09/17. #Left hemothorax Chest tube placed [...] dysphagia & delir ium improves Sherine Sarmiento, [facility] Pg [phone] Dallin Bourgeois MD - 09/22/2017 8:03 AM [...] Dallin Bourgeois MD Neurosurgery PGY1 | Pager #[phone] Sherine Sarmiento, AGACN - 09/22/2017 6:52 AM [...] 24hr events: - Therapeutic purees initiated by NEWSPAPER ILLUSTRATOR yesterday - Trickle feeds via Dobbhoff, pt pulled Dobbhoff yesterday evening- not replaced - SECURITIES BROKER called around 2129 for new left facial droop (see separate notes), CT revealed increa se in SDH from 12 to 17mm with no change in midline shift. [facility] - NSG and [...] sluggish. Slight left facial droop Neck: in Holcomb collar Respiratory: unlabored on room air CV: [...] likely 2/2 AMS & delirium - Failed NEWSPAPER ILLUSTRATOR eval 09/19 & 09/20, made NPO & dobhoff reinserted 09/21 but pulled overnight - Per NEWSPAPER ILLUSTRATOR on 09/21, ok for therapeutic pureed with [...] . - C-collar at all times, use BEAN ROASTER when OOB - Follow-up with Neurosurgery on [...] when dysphagia & delirium improves Sherine Sarmiento, [facility] Pg [phone] Associated attestation - Shiva Nieto MD,MPH - [...] Trauma, Critical Care & Acute Care Surgery [facility] [phone] Sami Black - 09/21/2017 10:25 PM PDTBrief [...] in the morning. Plan: -neuro checks; page [phone] for any decline in neurological examination -pain control -Hard C collar at all times and place BEAN ROASTER prior to mobilizing OOB. Anticipated duration of Collar/BEAN ROASTER is 12 weeks -repeat CT head for any new decline in neurological exam and page [phone] -NPO at midnight tonight -please hold tonight's planned dose of Lovenox -further recommendations in the morning Sami Black MD, PhD PGY-3 Resident Neurosurgery [id number] estrella, AGACNP - 09/21/2017 7:10 AM PDTFormatting [...] Provena placem ent 24hr events: - Failed NEWSPAPER ILLUSTRATOR eval again yest morning, continued NPO - [...] reactive. Dobbhoff tube in place Neck: in Holcomb collar Respiratory: unlabored on room air CV: [...] likely 2/2 AMS & delirium - Failed NEWSPAPER ILLUSTRATOR eval 09/19 & 09/20, made NPO & dobhoff reinserted yesterday - Trickle feeds started this am at 20ml/hr, increase very slowly by 10ml every 12 hrs to go al of 75 due to hx of mesenteric hematomas and previous inability to tolerate TF - Per NEWSPAPER ILLUSTRATOR today, ok for therapeutic pureed with nectar [...] . - C-collar at all times, use BEAN ROASTER when OOB - Follow-up with Neurosurgery on 10/21 with repeat X-rays #Blunt abdominal trauma #Splenic laceration S/p laparotomies x2. Fascia closed 09/02 Wound vac removed by patient, but wound remains duke n/dry/intact. Burton removed 09/17. #Left hemothorax Chest tube placed [...] & delirium [place] [phone] Associated attestation - Fidelina Shields MD - 09/21/2017 9:36 PM PDTAttending: I saw and examined Artemio Temple ([id number]) with KESHAWN Alexander on mornin g rounds [...] enough to re-trial PO. Fidelina Shields MD Machining Department Supervisor Division of Trauma, Critical Care and Acute Care Surgery Office: [phone] Pager: [phone] Sherine Sarmiento AGACNP - 09/20/2017 7:41 AM [...] haldol given yesterday afternoon for agitation - NEWSPAPER ILLUSTRATOR paged to re-eval in afternoon after concern for aspiration, made NPO by NEWSPAPER ILLUSTRATOR - DARNELL SOLANO Current meds: I have [...] right pupil 3 and reactive Neck: in Holcomb collar Respiratory: unlabored on room air CV: [...] thick/pureed d iet. Made NPO yesterday by NEWSPAPER ILLUSTRATOR after concern for aspiration. This is likely 2/2 waxing & wan ing delirium & AMS - NEWSPAPER ILLUSTRATOR re-eval today recommend continue NPO d/t overt clinical signs of aspiration - Place Dobbhoff tube and restart feeds, slowly progress to goal - Stop TPN when tolerating tube feeds - NEWSPAPER ILLUSTRATOR will follow closely, as his AMS improves [...] . - C-collar at all times, use BEAN ROASTER when OOB - Follow-up with Neurosurgery on [...] & delirium [place]g [phone] Associated attestation - Fidelina Shields MD - 09/20/2017 9:34 PM PDTAttending: I saw and examined Artemio Temple ([id number]) with KESHAWN Alexander on mornin g rounds [...] dispo planning when able. Fidelina Shields MD Machining Department Supervisor Division of Trauma, Critical Care and Acute Care Surgery Office: [phone] Pager: [phone] Mary Medrano MD,MPH - 09/19/2017 6:22 AM [...] downgraded from thin to thick liquids by NEWSPAPER ILLUSTRATOR Current meds: I have independently reviewed current [...] intact, small Right fluctuant pseudomeningocele Neck: in Holcomb collar Respiratory: unlabored on room air CV: [...] DHT on09/19. - Cleared for diet by NEWSPAPER ILLUSTRATOR, tolerating purees, 749 Calories yesterday - Restart Calorie count: if taking >700 again will be OK for full po diet, otherwise replac e DHT and restart TF - Stop TPN tomorrow regardless - Still considering repeat CT abdomen/pelvis #Dysphagia DHTreplaced overnight 09/07. TF held due to emesis and possible ileus, aspiration risk. DH T pulled overnight on 09/18 - NEWSPAPER ILLUSTRATOR as able Resolved or chronic issues/Plan: #BIG 3 TBI #Right synthetic cranioplasty Neurosurgery consulted. Non-operative management. Last head CT 09/12 stable. Expected pseudo meningocele. Left-sided deficits consistent with baseline. - Stat head CT for any neurologic decline #C7 bilateral lamina fractures #C6-T2 spinous process fractures Neurosurgery consulted. Non-operative management. Upright cervical X-rays completed on 09/14 . - C-collar at all times, use BEAN ROASTER when OOB - Follow-up with Neurosurgery on [...] M.D., M.P.H. Neurological Surgery Resident PGY-1 Pager: [phone] Associated attestation - Fidelina Shields MD - 09/19/2017 1:36 PM PDTAttending: I saw and examined Artemio Temple ([id number]) with the residents on morning rounds 09/19/17 and agree with the assessment and plan as outlined in this note and participated in the plan aashish of care. Improving po intake, will titrate TPN. Plan to DC TPN tomorrow and transition to PO vs PO + TF depending on calorie counts. Once of restraints will begin looking for placement. Fidelina Shields MD Machining Department Supervisor Division of Trauma, Critical Care and Acute Care Surgery Office: [phone] Pager: [phone] Mary Medrano MD,MPH - 09/18/2017 6:17 AM [...] fascial closure, Provena placem ent 24hr events: Burton removed yesterday Small emesis overnight, nausea resolved [...] fluctuant pseudomeningocele,Dobhoff tubein p lace Neck: in Holcomb collar Respiratory: unlabored on room air CV: [...] holding TF - Cleared for diet by NEWSPAPER ILLUSTRATOR, tolerating small quantities of purees - Will need repeat CT A/P within 1-2 days #Hypervolemia I&O approaching even. Appears to have been auto-diuresing. - Continue to monitor urine output - Monitor electrolytes, replete prn #Dysphagia DHTreplaced overnight 09/07. TF held due to emesis and possible ileus, aspiration risk. - NEWSPAPER ILLUSTRATOR as able #C7 bilateral lamina fractures #C6-T2 spinous process fractures Neurosurgery consulted. Non-operative management. Upright cervical X-rays completed on 09/14 . - C-collar at all times, use BEAN ROASTER when OOB - Follow-up with Neurosurgery on [...] by patient, but wound remains duke n/dry/intact. Burton removed 09/17. #Left hemothorax Chest tube placed [...] M.D., M.P.H. Neurological Surgery Resident PGY-1 Pager: [phone] Associated attestation - Fidelina Shields MD - 09/19/2017 3:58 PM PDTAttending: I saw and examined Artemio Temple ([id number]) with the residents on morning rounds 09/18/17 and agree with the assessment and plan as outlined in this note and participated in the plan aashish of care. Fidelina Shields MD Machining Department Supervisor Division of Trauma, Critical Care and Acute Care Surgery Office: [phone] Pager: [phone] Mary Medrano MD,MPH - 09/17/2017 6:26 AM [...] fluctuant pseudomeningocele,Dobhoff tubein p lace Neck: in Holcomb collar Respiratory: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 Blood | [facility], CORE [address] [place] [address] | | | [place] [address] | + + + + + | [...] | + + + | Blood | [facility], CORE [address] [facility] [address] | | | [place] [address] | + + + + + | [...] Note | + + | 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, Daily Aisle Res In Interface - 11/19/2017 11:26 AM [...] Laboratory | + + + | | [facility] [address] [place] [address] | | | [place], [place] [address] | + + + 12 LEAD ECG [...] Laboratory | + + + | | [facility] [address] [place] [address] | | | [place] [address] | + + + CALCIUM, IONIZED, WHOLE [...] | + + + | Blood | [facility], CORE [address] [place] [address] | | | [place] [address] | + + + C-REACTIVE PROTEIN (11/18/2017 7:45 AM) + +-------+ + | Component | Value | Ref Range | + +-------+ + | C-REACTIVE PROTEIN | <2.9 | <10.0 mg/L | + +-------+ + + + + | Specimen | Performing Laboratory | + + + | Blood | [facility], CORE [address] | | | [place] [address] | + + + + + | [...] | + + + | Blood | [facility] [place] [address] [place], [place] | | | [address] | + + + TRIGLYCERIDES, PLASMA (11/18/2017 7:45 AM) + +---------+ + | Component | Value | Ref Range | + +---------+ + | TRIGLYCERIDES | 162 (H) | <150 mg/dL | + +---------+ + + + + | Specimen | Performing Laboratory | + + + | Blood | [facility], CORE [address] [facility] [address] | | | [place] [address] | + + + + + | [...] | + + + | Blood | [facility], CORE [address] [facility] [address] | | | [place] [address] | + + + RENAL FUNCTION SET [...] | >60 | >60 mL/min | | [place] | | | + + + + | EGFR NON | >60 | >60 mL/min | | -[place]OMBIAN | | | + + + + [...] | + + + | Blood | [facility], CORE [address] [place] [address] | | | [place] [address] | + + + + + | [...] | + + + | Blood | [facility], CORE [address] [facility] [address] | | | [place] [address] | + + + + + | [...] Laboratory | + + + | | [facility] [address] [place] [address] | | | [place] [address] | + + + 12 LEAD ECG [...] Laboratory | + + + | | [facility] [address] [facility] | | | [place] [address] | + + + CBC (HEMOGRAM) ONLY [...] + + + | Blood | [facility], CORE [address] [facility] [address] | | | [place] [address] | + + + + + | [...] | | ------ CBC (HEMOGRAM) | | ONLY[[id number]] Abnormal Final | | result Please view [...] Laboratory | + + + | | [facility] [address] [place] [address] | | | [place] [address] | + + + RENAL FUNCTION SET [...] | >60 | >60 mL/min | | [place] | | | + + + + | EGFR NON | >60 | >60 mL/min | | -COLOMBIAN | | | + + + + [...] | + + + | Blood | [facility], CORE [address] [facility] [address] | | | [place] [address] | + + + + + | [...] | + + + | Blood | [facility], CORE [address] | | | [place] [address] | + + + + + | [...] Laboratory | + + + | | [facility] [address] [facility] | | | [place] [address] | + + + MAGNESIUM, PLASMA (11/13/2017 5:47 AM) + +-------+ + | Component | Value | Ref Range | + +-------+ + | MAGNESIUM,PLASMA | 2.1 | 1.6 - 2.6 mg/dL | + +-------+ + + + + | Specimen | Performing Laboratory | + + + | Blood | [facility], CORE [address] [facility] [address] | | | [place] [address] | + + + + + | [...] | >60 | >60 mL/min | | [place] | | | + + + + | EGFR NON | >60 | >60 mL/min | | -[place]OMBIAN | | | + + + + [...] | + + + | Blood | [facility], C[address] [address] | | | [place] [address] | + + + + + | [...] [place]- [place], Med | | | | Lorarine | | + + + + | REF URINE VOLUME | 1800.00 | mL | + + + + | REF URINE TIME | 24.00 | hrs | + + + + | UR PROT CONC-UPEP | 9 | <=14 mg/dL | + + + + + + + | Specimen | Performing Laboratory | + + + | Urine | [facility] [address] [place], [place] | | | [address] | + + + VASC LAB VENOUS [...] Laboratory | + + + | | [facility] [address] [place] [address] | | | [place] [address] | + + + CT CHEST, ABDOMEN AND PELVIS W IV CONTRAST (11/11/2017 6:57 PM) + + + | Specimen | Performing Laboratory | + + + | | [facility] RAD[facility] VOICE RECOGNITION 2 | + + [...] + + + | Blood | [facility], CORE [address] [place] [address] | | | [place] [address] | + + + PROTEIN ELECTROPHORESIS, SERUM, [...] | + + + | Blood | [facility] [place] [address] [place], [place] | | | [address] | + + + 12 LEAD ECG [...] Laboratory | + + + | | [facility] [address] [place] [address] | | | [place] [address] | + + + C-REACTIVE PROTEIN (11/11/2017 9:06 AM) + +-------+ + | Component | Value | Ref Range | + +-------+ + | C-REACTIVE PROTEIN | <2.9 | <10.0 mg/L | + +-------+ + + + + | Specimen | Performing Laboratory | + + + | Blood | [facility], CORE [address] | | | [place] [address] | + + + + + | [...] | + + + | Blood | [facility] [address] [place], [place] | | | [address] | + + + TRIGLYCERIDES, PLASMA (11/11/2017 9:06 AM) + +-------+ + | Component | Value | Ref Range | + +-------+ + | TRIGLYCERIDES | 117 | <150 mg/dL | + +-------+ + + + + | Specimen | Performing Laboratory | + + + | Blood | [facility], CORE [address] [facility] | | | [place] [address] | + + + + + | [...] | + + + | Blood | [facility], CORE [address] [facility] [address] | | | [place] [address] | + + + LIVER SET (AST,ALT,BILI [...] | + + + | Blood | [facility], CORE [address] [facility] [address] [address] | | | [place] [address] | + + + RENAL FUNCTION SET [...] | >60 | >60 mL/min | | [place] | | | + + + + | EGFR NON | >60 | >60 mL/min | | -[place]OMBIAN | | | + + + + [...] + + + | Blood | [facility], CORE [address] | | | [place] [address] | + + + + + | [...] + + + | Blood | [facility], CORE [address] [facility] [address] | | | [facility] [address] | + + + + + | [...] | + + + | Blood | [facility], CORE [address] [facility] [address] [address] | | | [place] [address] | + + + + + | [...] | >60 | >60 mL/min | | [place] | | | + + + + | EGFR NON | >60 | >60 mL/min | | -[place]OMBIAN | | | + + + + [...] | + + + | Blood | [facility], CORE [address] [place] [address] | | | [place] [address] | + + + + + | [...] | | [facility] [address] | | | [place] [address] | + + + MAGNESIUM, PLASMA (11/10/2017 10:19 AM) + +-------+ + | Component | Value | Ref Range | + +-------+ + | MAGNESIUM,PLASMA | 2.0 | 1.6 - 2.6 mg/dL | + +-------+ + + + + | Specimen | Performing Laboratory | + + + | Blood | [facility], CORE [address] | | | [facility] [place] [address] | + + + + + | [...] | >60 | >60 mL/min | | [place] | | | + + + + | EGFR NON | >60 | >60 mL/min | | -[place]AN | | | + + + + [...] | + + + | Blood | [facility], CORE [address] [facility] [address] | | | [place] [address] | + + + + + | [...] | + + + | Blood | [facility], CORE [address] [facility] [address] | | | [place] [address] | + + + + + | [...] | >60 | >60 mL/min | | [place] | | | + + + + | EGFR NON | >60 | >60 mL/min | | -[place]OM[place]AN | | | + + + + [...] | + + + | Blood | [facility], CORE [address] [facility] [address] | | | [place] [address] | + + + + + | [...] Laboratory | + + + | | [facility] RAD[facility]OLOGY VOICE RECOGNITION 2 | + + [...] | + + + | Blood | [facility], CORE [address] [place] [address] | | | [place] [address] | + + + + + | [...] | >60 | >60 mL/min | | [place] | | | + + + + | EGFR NON | >60 | >60 mL/min | | -[place]AN | | | + + + + [...] | + + + | Blood | [facility], CORE [address] [facility] [address] | | | [place] [address] | + + + + + | [...] by: RENO VIZCAINO | | | | 11-08-2017 17:47:08 | | + + + + + + + | Specimen | Performing Laboratory | + + + | | [facility] [address] [place] [address] | | | [place] [address] | + + + CT HEAD WO CONTRAST (11/07/2017 3:43 PM) + + + | Specimen | Performing Laboratory | + + + | | [facility] VOICE RECOGNITION 2 | + + [...] |Preliminary: Leif Caal MD | |Dictation initiated: Lief Caal MD 11/07/2017 3:37 PM | + [...] Laboratory | + + + | | [facility] [address] [place] [address] | | | [place] [address] | + + + RENAL FUNCTION SET [...] | >60 | >60 mL/min | | [place] | | | + + + + | EGFR NON | >60 | >60 mL/min | | -[place]OMBIAN | | | + + + + [...] + + + | Blood | [facility], [facility] [address] [facility] [address] | | | [facility] [place] [address] | + + + + + | [...] + + + | Blood | [facility], CORE [address] [facility] [address] | | | [place] [address] | + + + + + | [...] + + | PRODUCT UNIT # | [id number] | | + + + + | UNIT ABO | O | | + + + + | UNIT RH | POS | | + + + + | STATUS OF UNIT | Returned to Blood Bank | | + + + + | EXPIRATION DATE | [id number] | | + + + + | BLOOD TYPE BARCODE | 5100 | | + + + + | BLOOD PRODUCT CODE | [id number] | | + + + + + + + | Specimen | Performing Laboratory | + + + | | [facility], TRANSFUSION MEDICINE [address] | | | [place] [address] | + + + PRODUCT - RED CELLS LEUKOREDUCED (11/06/2017 8:03 AM) + + + + | Component | Value | Ref Range | + + + + | PRODUCT DESCRIPTION | -1 RED BLOOD CELL ADENINE-SALINE ADDED | | | | LEUKOCYTE | | + + + + | PRODUCT UNIT # | [id number] | | + + + + | UNIT ABO | O | | + + + + | UNIT RH | POS | | + + + + | STATUS OF UNIT | Returned to Blood Bank | | + + + + | EXPIRATION DATE | [id number] | | + + + + | BLOOD TYPE BARCODE | 5100 | | + + + + | BLOOD PRODUCT CODE | [id number] | | + + + + + + + | Specimen | Performing Laboratory | + + + | | [facility], TRANSFUSION MEDICINE [address] [place] [address] | | | [place] [address] | + + + CBC (HEMOGRAM) ONLY [...] | + + + | Blood | [facility], CORE [address] [facility] [address] | | | [place] [address] | + + + + + | [...] | | ------ CBC (HEMOGRAM) | | ONLY[[id number]] Abnormal Final | | result Please view [...] | + + + | Blood | [facility], CORE [address] [facility] | | | [place] [address] | + + + + + | [...] | >60 | >60 mL/min | | [place] | | | + + + + | EGFR NON | >60 | >60 mL/min | | -[place]OMBIAN | | | + + + + [...] | + + + | Blood | [facility], [facility] [address] [facility] [address] | | | [place] [address] | + + + + + | [...] Attending | | Surgeon: Magdiel Stock MD Merchandise Adjustment Clerk(s): Alana Aiken MD | | Preoperative Diagnoses: [...] head was placed in a horseshoe head cook with his C-collar still | | attached [...] the incision down to the cranium. Once unga | | skull was reached circumferentially around the prior incision, a #1 [place] was used | | to subperiosteally dissect [...] note for this encounter.Sonal Nunez, | | [facility] [id number] [place], [place] | | [phone] Orina, MDJB/TAHIRLDD: 11/05/2017 20:38:01DT: 11/06/2017 | | 00:27:33Job #: [id number] | |HATTIE/DUC | | | | | | /[id number] | + + CT HEAD WO CONTRAST (11/05/2017 7:55 PM) + + + | Specimen | Performing Laboratory | + + + | | [facility] VOICE RECOGNITION 2 | + + [...] Note | + + | 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, Daily Aisle Res In Interface - 11/05/2017 8:20 PM [...] | nursing staff. Surgeon: Magdiel Stock MD Merchandise Adjustment Clerk: Alana Aiken MD | | Pre-op Diagnosis: [...] | MD Attila PGY-4 Neurological Surgery Pager [phone] | + + CAPILLARY BLOOD GLUCOSE (NO CHG), POC (11/05/2017 7:11 PM) + +---------+ + | Component | Value | Ref Range | + +---------+ + | BLOOD GLUCOSE, POC | 129 (H) | 70 - 99 mg/dL | + +---------+ + + + + | Specimen | Performing Laboratory | + + + | | [facility] [place], POINT OF [facility] TESTS [address] | | | [place] [address] | + + + CAPILLARY BLOOD GLUCOSE (NO CHG), POC (11/05/2017 1:33 PM) + +---------+ + | Component | Value | Ref Range | + +---------+ + | BLOOD GLUCOSE, POC | 103 (H) | 70 - 99 mg/dL | + +---------+ + + + + | Specimen | Performing Laboratory | + + + | | [facility] POINT OF CARE TESTS [address] | | | [place] [address] | + + + VASC LAB VENOUS [...] Note | + + | 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, Vitasol In Interface - 11/05/2017 11:31 AM PDT [...] | + + + | Blood | [facility], CORE [address] | | | [place] [address] | + + + + + | [...] | + + + | Blood | [facility], CORE [address] | | | [place] [address] | + + + + + | [...] | >60 | >60 mL/min | | [place] | | | + + + + | EGFR NON | >60 | >60 mL/min | | -[place] | | | + + + + [...] | + + + | Blood | [facility], CORE [address] [place] [address] | | | [place], [place] [address] | + + + + + | [...] | + + + | Blood | [facility], CORE [address] | | | [place] [address] | + + + + + | [...] | | ------ CBC (HEMOGRAM) | | ONLY[[id number]] Abnormal Final | | result Please view [...] + + | PRODUCT UNIT # | [id number] | | + + + + | UNIT ABO | O | | + + + + | UNIT RH | POS | | + + + + | STATUS OF UNIT | Returned to Blood Bank | | + + + + | EXPIRATION DATE | [id number] | | + + + + | BLOOD TYPE BARCODE | 5100 | | + + + + | BLOOD PRODUCT CODE | [id number] | | + + + + + + + | Specimen | Performing Laboratory | + + + | | [facility] [facility] TRANSFUSION MEDICINE [address] [facility] | | | [place] [address] | + + + PRODUCT - RED CELLS LEUKOREDUCED (11/04/2017 8:19 PM) + + + + | Component | Value | Ref Range | + + + + | PRODUCT DESCRIPTION | -1 RED BLOOD CELL ADENINE-SALINE ADDED | | | | LEUKOCYTE | | + + + + | PRODUCT UNIT # | [id number] | | + + + + | UNIT ABO | O | | + + + + | UNIT RH | POS | | + + + + | STATUS OF UNIT | Returned to Blood Bank | | + + + + | EXPIRATION DATE | [id number] | | + + + + | BLOOD TYPE BARCODE | 5100 | | + + + + | BLOOD PRODUCT CODE | [id number] | | + + + + + + + | Specimen | Performing Laboratory | + + + | | [facility] TRANSFUSION MEDICINE [address] [facility] | | | [place] [address] | + + + CBC (HEMOGRAM) ONLY [...] | + + + | Blood | [facility], CORE [address] [facility] | | | [place] [address] | + + + + + | [...] | + + + | Blood | [facility] TRANSFUSION MEDICINE [address] [facility] | | | [place] [address] | + + + ABO & RH [...] | + + + | Blood | [facility] TRANSFUSION MEDICINE [address] [facility] | | | [place] [address] | + + + TYPE AND SCREEN [...] | ------ ABO & RH | | TYPE[[id number]] F | | inal result ANTIBODY | | SCREEN[[id number]] Fin | | al result Please view [...] | + + + | Blood | [facility], CORE [address] [place] [address] | | | [place] [address] | + + + + + | [...] | | ------ CBC (HEMOGRAM) | | ONLY[[id number]] Abnormal Final | | result Please view [...] by: RENO VIZCAINO | | | | 11-04-2017 14:31:31 | | + + + + + + + | Specimen | Performing Laboratory | + + + | | [facility] [address] [place] [address] | | | [place] [address] | + + + CALCIUM, IONIZED, WHOLE [...] + + + | Blood | [facility], CORE [address] [facility] | | | [place] [address] | + + + C-REACTIVE PROTEIN (11/04/2017 5:59 AM) + +-------+ + | Component | Value | Ref Range | + +-------+ + | C-REACTIVE PROTEIN | <2.9 | <10.0 mg/L | + +-------+ + + + + | Specimen | Performing Laboratory | + + + | Blood | [facility], CORE [address] [facility] [address] | | | [place] [address] | + + + + + | [...] | + + + | Blood | [facility] [address] [place], [place] | | | [address] | + + + TRIGLYCERIDES, PLASMA (11/04/2017 5:59 AM) + +-------+ + | Component | Value | Ref Range | + +-------+ + | TRIGLYCERIDES | 111 | <150 mg/dL | + +-------+ + + + + | Specimen | Performing Laboratory | + + + | Blood | [facility], CORE [address] [facility] | | | [place] [address] | + + + + + | [...] | + + + | Blood | [facility], CORE [address] [facility] | | | [place] [address] | + + + RENAL FUNCTION SET [...] | >60 | >60 mL/min | | [place] | | | + + + + | EGFR NON | >60 | >60 mL/min | | -COLOMBIAN | | | + + + + [...] | + + + | Blood | [facility] [address] [facility] | | | [place] [address] | + + + + + | [...] + + + | Blood | [facility], CORE [address] [facility] | | | [place] [address] | + + + + + | [...] | + + + | Blood | [facility], CORE [address] [facility] | | | [place] [address] | + + + + + | [...] | >60 | >60 mL/min | | [place] | | | + + + + | EGFR NON | >60 | >60 mL/min | | -[place]OM[place]AN | | | + + + + [...] | + + + | Blood | [facility], CORE [address] [facility] | | | [place] [address] | + + + + + | [...] | + + + | Blood | [facility], CORE [address] [facility] | | | [place] [address] | + + + + + | [...] | >60 | >60 mL/min | | [place] | | | + + + + | EGFR NON | >60 | >60 mL/min | | -[place]AN | | | + + + + [...] | + + + | Blood | [facility], CORE [address] [facility] [address] | | | [facility] [place] [address] | + + + + + | [...] Laboratory | + + + | | [facility] [address] [place] [address] | | | [place] [address] | + + + MAGNESIUM, PLASMA (11/01/2017 4:40 AM) + +-------+ + | Component | Value | Ref Range | + +-------+ + | MAGNESIUM,PLASMA | 2.0 | 1.6 - 2.6 mg/dL | + +-------+ + + + + | Specimen | Performing Laboratory | + + + | Blood | [facility], CORE [address] [facility] | | | [place] [address] | + + + + + | [...] | >60 | >60 mL/min | | [place] | | | + + + + | EGFR NON | >60 | >60 mL/min | | -[place]OM[place]AN | | | + + + + [...] | + + + | Blood | [facility], CORE [address] [facility] | | | [place] [address] | + + + + + | [...] Laboratory | + + + | | [facility] VOICE RECOGNITION 2 | + + [...] Laboratory | + + + | | [facility] [address] [place] [address] | | | [place] [address] | + + + RENAL FUNCTION SET [...] | >60 | >60 mL/min | | [place] | | | + + + + | EGFR NON | >60 | >60 mL/min | | -[place]OM[place]AN | | | + + + + [...] | + + + | Blood | [facility], CORE [address] [facility] | | | [place] [address] | + + + + + | [...] | + + + | Blood | [facility], CORE [address] [facility] | | | [place] [address] | + + + + + | [...] [address] | | | [place] [address] | + + + MAGNESIUM, PLASMA (10/30/2017 5:29 AM) + +-------+ + | Component | Value | Ref Range | + +-------+ + | MAGNESIUM,PLASMA | 1.8 | 1.6 - 2.6 mg/dL | + +-------+ + + + + | Specimen | Performing Laboratory | + + + | Blood | [facility], CORE [address] [place] [address] | | | [place] [address] | + + + + + | [...] | >60 | >60 mL/min | | [place] | | | + + + + | EGFR NON | >60 | >60 mL/min | | -[place] | | | + + + + [...] | + + + | Blood | [facility], CORE [address] [facility] | | | [place] [address] | + + + + + | [...] | | muscle-wasting diseses | + + [facility] VENOUS DUPLEX LOWER EXTREMITY BILAT [...] Laboratory | + + + | | SEELNA GENAO, POINT OF [facility] TESTS [address] | | | [place] [address] | + + + MAGNESIUM, PLASMA (10/29/2017 6:19 AM) + +-------+ + | Component | Value | Ref Range | + +-------+ + | MAGNESIUM,PLASMA | 1.9 | 1.6 - 2.6 mg/dL | + +-------+ + + + + | Specimen | Performing Laboratory | + + + | Blood | [facility], CORE [address] [facility] | | | [facility] [place] [address] | + + + + + | [...] | >60 | >60 mL/min | | [place] | | | + + + + | EGFR NON | >60 | >60 mL/min | | -[place]OM[place]AN | | | + + + + [...] | + + + | Blood | [facility], CORE [address] [facility] [address] | | | [facility] [place] [address] | + + + + + | [...] + + + | | SELENA PICKETT [place], POINT OF CARE TESTS [address] | | | [place] [address] | + + + 12 LEAD ECG [...] Laboratory | + + + | | [facility] [address] [place] [address] | | | [place] [address] | + + + CAPILLARY BLOOD GLUCOSE [...] [address] | | | [place] [address] | + + + CAPILLARY BLOOD GLUCOSE (NO CHG), POC (10/28/2017 6:43 AM) + +---------+ + | Component | Value | Ref Range | + +---------+ + | BLOOD GLUCOSE, POC | 127 (H) | 70 - 99 mg/dL | + +---------+ + + + + | Specimen | Performing Laboratory | + + + | | TXDANIELLE [place], POINT OF CARE TESTS [address] | | | [place] [address] | + + + C-REACTIVE PROTEIN (10/28/2017 5:29 AM) + + + + | Component | Value | Ref Range | + + + + | C-REACTIVE PROTEIN | 17.9 (H) | <10.0 mg/L | + + + + + + + | Specimen | Performing Laboratory | + + + | Blood | [facility], CORE [address] [facility] | | | [place] [address] | + + + + + | [...] | + + + | Blood | [facility] [place] [address] [place], [place] | | | [address] | + + + TRIGLYCERIDES, PLASMA (10/28/2017 5:29 AM) + +-------+ + | Component | Value | Ref Range | + +-------+ + | TRIGLYCERIDES | 117 | <150 mg/dL | + +-------+ + + + + | Specimen | Performing Laboratory | + + + | Blood | [facility], CORE [address] [facility] | | | [place] [address] | + + + + + | [...] | + + + | Blood | [facility], CORE [address] [place] [address] | | | [place] [address] | + + + LIVER SET (AST,ALT,BILI [...] | + + + | Blood | [facility], CORE [address] [place] [address] | | | [place] [address] | + + + RENAL FUNCTION SET [...] | >60 | >60 mL/min | | [place] | | | + + + + | EGFR NON | >60 | >60 mL/min | | -[place] | | | + + + + [...] | + + + | Blood | [facility] [address] | | | [place] [address] | + + + + + | [...] | + + + | Blood | [facility], CORE [address] [facility] | | | [place] [address] | + + + + + | [...] [address] | | | [place] [address] | + + + CAPILLARY BLOOD GLUCOSE [...] [address] | | | [place] [address] | + + + CT ABDOMEN AND PELVIS WO IV CONTRAST (10/27/2017 5:38 PM) + + + | Specimen | Performing Laboratory | + + + | | [facility] VOICE RECOGNITION 2 | + + [...] Laboratory | + + + | | [facility] VOICE RECOGNITION 2 | + + + + + | Narrative | + + | EXAM: VT CHEST PICC [...] | | verifies correct patient, procedure, equipment, java support engineer and site/side marked as | | required. [...] Brachial | | vein. Catheter lot number: [id number] with a length of 55 cm was [...] TESTS [address] | | | [place] [address] | + + + 12 LEAD ECG [...] Laboratory | + + + | | [facility] [address] [place] [address] | | | [place] [address] | + + + CAPILLARY BLOOD GLUCOSE [...] TESTS [address] | | | [place] [address] | + + + MAGNESIUM, PLASMA (10/27/2017 4:30 AM) + +-------+ + | Component | Value | Ref Range | + +-------+ + | MAGNESIUM,PLASMA | 1.9 | 1.6 - 2.6 mg/dL | + +-------+ + + + + | Specimen | Performing Laboratory | + + + | Blood | [facility], CORE [address] | | | [place] [address] | + + + + + | [...] | >60 | >60 mL/min | | [place] | | | + + + + | EGFR NON | >60 | >60 mL/min | | -[place] | | | + + + + [...] | + + + | Blood | [facility], CORE [address] | | | [place] [address] | + + + + + | [...] Laboratory | + + + | | [facility], POINT OF CARE TESTS [address] | | | [place] [address] | + + + CAPILLARY BLOOD GLUCOSE [...] [address] | | | [place] [address] | + + + CAPILLARY BLOOD GLUCOSE (NO CHG), POC (10/26/2017 5:57 AM) + +---------+ + | Component | Value | Ref Range | + +---------+ + | BLOOD GLUCOSE, POC | 102 (H) | 70 - 99 mg/dL | + +---------+ + + + + | Specimen | Performing Laboratory | + + + | | TXDANIELLE - [place], POINT OF CARE TESTS [address] | | | [place] [address] | + + + MAGNESIUM, PLASMA (10/26/2017 5:13 AM) + +-------+ + | Component | Value | Ref Range | + +-------+ + | MAGNESIUM,PLASMA | 1.6 | 1.6 - 2.6 mg/dL | + +-------+ + + + + | Specimen | Performing Laboratory | + + + | Blood | [facility], CORE [address] [place] [address] | | | [place] [address] | + + + + + | [...] | >60 | >60 mL/min | | [place] | | | + + + + | EGFR NON | >60 | >60 mL/min | | -[place] | | | + + + + [...] | + + + | Blood | [facility], [facility] [address] [facility] | | | [place] [address] | + + + + + | [...] + + + | | SELENA PICKETT [place] POINT OF CARE TESTS [address] | | | [place] [address] | + + + BASIC METABOLIC SET [...] | >60 | >60 mL/min | | [place] | | | + + + + | EGFR NON | >60 | >60 mL/min | | -[place] | | | + + + + [...] + + + | Blood | [facility], CORE [address] [facility] | | | [place] [address] | + + + + + | [...] + + | | SELENA Jorge [place], POINT OF CARE TESTS [address] | | | [place] [address] | + + + 12 LEAD ECG [...] | | [facility] [address] [facility] | | | [place] [address] | + + + CAPILLARY BLOOD GLUCOSE [...] OF CARE TESTS [address] [facility] | | | [place] [address] | + + + 12 LEAD ECG [...] | | [facility] [address] [facility] | | | [place] [address] | + + + CALCIUM, IONIZED, WHOLE [...] | + + + | Blood | [facility], CORE [address] [facility] | | | [place] [address] | + + + PREALBUMIN (10/24/2017 4:50 PM) + + + + | Component | Value | Ref Range | + + + + | PREALBUMIN | 14.7 (L) | 17.0 - 42.0 mg/dL | + + + + + + + | Specimen | Performing Laboratory | + + + | Blood | [facility] [address] [place], [place] | | | [address] | + + + C-REACTIVE PROTEIN (10/24/2017 4:45 PM) + + + + | Component | Value | Ref Range | + + + + | C-REACTIVE PROTEIN | 16.0 (H) | <10.0 mg/L | + + + + + + + | Specimen | Performing Laboratory | + + + | Blood | [facility], CORE [address] [facility] | | | [place] [address] | + + + + + | [...] | + + + | Blood | [facility], CORE [address] [facility] | | | [place] [address] | + + + TRIGLYCERIDES, PLASMA (10/24/2017 4:45 PM) + +-------+ + | Component | Value | Ref Range | + +-------+ + | TRIGLYCERIDES | 93 | <150 mg/dL | + +-------+ + + + + | Specimen | Performing Laboratory | + + + | Blood | [facility], CORE [address] [facility] | | | [place] [address] | + + + + + | [...] | + + + | Blood | [facility], CORE [address] [facility] | | | [place] [address] | + + + ALKALINE PHOSPHATASE, PLASMA (10/24/2017 4:45 PM) + +---------+ + | Component | Value | Ref Range | + +---------+ + | ALK PHOS | 200 (H) | 56 - 119 U/L | + +---------+ + + + + | Specimen | Performing Laboratory | + + + | Blood | [facility], CORE [address] [facility] | | | [place] [address] | + + + BILIRUBIN DIRECT (10/24/2017 [...] | + + + | Blood | [facility], CORE [address] [facility] | | | [place], [place] [address] | + + + BILIRUBIN TOTAL (10/24/2017 [...] | + + + | Blood | [facility], CORE [address] [facility] | | | [place] [address] | + + + PHOSPHORUS, PLASMA (10/24/2017 4:45 PM) + +-------+ + | Component | Value | Ref Range | + +-------+ + | PHOSPHORUS, PLASMA | 3.2 | 2.4 - 4.7 mg/dL | | (LAB) | | | + +-------+ + + + + | Specimen | Performing Laboratory | + + + | Blood | [facility], CORE [address] [place] [address] | | | [place] [address] | + + + ALBUMIN, PLASMA (10/24/2017 4:45 PM) + +---------+ + | Component | Value | Ref Range | + +---------+ + | ALBUMIN, PLASMA | 2.6 (L) | 3.5 - 4.7 g/dL | | (LAB) | | | + +---------+ + + + + | Specimen | Performing Laboratory | + + + | Blood | [facility], CORE [address] [place] [address] | | | [place] [address] | + + + MAGNESIUM, PLASMA (10/24/2017 4:45 PM) + +-------+ + | Component | Value | Ref Range | + +-------+ + | MAGNESIUM,PLASMA | 1.7 | 1.6 - 2.6 mg/dL | + +-------+ + + + + | Specimen | Performing Laboratory | + + + | Blood | [facility], CORE [address] [facility] [address] | | | [place] [address] | + + + + + | [...] | >60 | >60 mL/min | | [place] | | | + + + + | EGFR NON | >60 | >60 mL/min | | -[place] | | | + + + + [...] + + + | Blood | [facility], CORE [address] [facility] [address] | | | [place] [address] | + + + + + | [...] Procedure Note | | Indications:TPN Procedure location: Unit:[facility] Room: 4 Providers: Attending name: | | Attending physically present: No PICC Nurse name: Nery Sosa Pre-Procedure Consent: | | written consent obtained Consent given by: Next of kin Patient identity confirmed | | per protocol: Yes Team Pause: Immediatly prior to the procedure a pause per protocol | | was called. A pause verifies correct patient, procedure, equipment, java support engineer | | and site/side marked as required. [...] Arm area Basilic vein. Catheter lot number: [id number] with a length of 55 cm | [...] Laboratory | + + + | | [facility] VOICE RECOGNITION 2 | + + + + + | Narrative | + + | EXAM: VT CHEST 1 [...] GE[place], POINT OF CARE TESTS [address] | | | [place] [address] | + + + PROCEDURE NOTE (10/24/2017 [...] Surgical Critical Care, PGY7 | | Pager: [phone] | + + CAPILLARY BLOOD GLUCOSE (NO CHG), POC (10/24/2017 10:31 AM) + +-------+ + | Component | Value | Ref Range | + +-------+ + | BLOOD GLUCOSE, POC | 85 | 70 - 99 mg/dL | + +-------+ + + + + | Specimen | Performing Laboratory | + + + | | SELENA - PIYUSH [place], POINT OF CARE TESTS [address] | | | [place] [address] | + + + CAPILLARY BLOOD GLUCOSE [...] [address] | | | [place] [address] | + + + RENAL FUNCTION SET [...] | >60 | >60 mL/min | | [place] | | | + + + + | EGFR NON | >60 | >60 mL/min | | -[place] | | | + + + + [...] | + + + | Blood | [facility], CORE [address] | | | [place] [address] | + + + + + | [...] | + + + | Blood | [facility], CORE [address] [facility] [address] | | | [place], [place] [address] | + + + + + | [...] [address] | | | [place] [address] | + + + CBC AND AUTO [...] | + + + | Blood | [facility], CORE [address] [facility] [address] | | | [place] [address] | + + + + + | [...] | >60 | >60 mL/min | | [place] | | | + + + + | EGFR NON | >60 | >60 mL/min | | -[place] | | | + + + + [...] | + + + | Blood | [facility], CORE [address] | | | [place] [address] | + + + + + | [...] | ------ CBC AND AUTO | | DIFF[[id number]] Abnormal Final | | result Please view [...] Laboratory | + + + | | [facility] [address] [place] [address] | | | [place] [address] | + + + IR GASTROSTOMY TUBE EXCHANGE (10/22/2017 2:42 PM) + + + | Specimen | Performing Laboratory | + + + | | [facility] VOICE RECOGNITION | + + + + + | Narrative | + + | Procedure: Gastrostomy tube exchange Primary attending interlibrary loan specialist: Peri | | Bryn Goodwin Preoperative diagnosis: Malfunctioning Gastrostomy tube | | Postoperative diagnosis: Same Operations: Operation 1. Removal of existing | | Gastrostomy tube over a guide wire Operation 2. Placement of 24 [place] GABRIEL | | gastrostomy over guide wire [...] | | glide wire the new 24 Scottish gastrostomy tube was inserted. The position of [...] Procedure: | | Gastrostomy tube exchangePrimary attending interlibrary loan specialist: Peri Goodwin, | | BrynPreoperative diagnosis: Malfunctioning Gastrostomy tubePostoperative diagnosis: | | SameOperations:Operation 1. Removal of existing Gastrostomy tube over a guide | | wireOperation 2. Placement of 24 Scottish GABRIEL gastrostomy over guide wireNo sedation was [...] glide wire the | | new 24 Scottish gastrostomy tube was inserted. The position of [...] stiff g lide wire the new 24 Scottish | |gastrostomy tube was inserted. The position [...] Laboratory | + + + | | [facility] VASC US | + + + [...] Note | + + | 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, Vitasol In Interface - 10/22/2017 10:34 AM PDT [...] Laboratory | + + + | | [facility] [address] [place] [address] | | | [place] [address] | + + + CT ABDOMEN AND PELVIS W IV CONTRAST (10/22/2017 3:56 AM) + + + | Specimen | Performing Laboratory | + + + | | [facility] VOICE RECOGNITION 2 | + + [...] + + + | Blood | [facility], CORE [address] | | | [place] [address] | + + + + + | [...] | >60 | >60 mL/min | | [place] | | | + + + + | EGFR NON | >60 | >60 mL/min | | -[place] | | | + + + + [...] + + + | Blood | [facility], CORE [address] | | | [place] [address] | + + + + + | [...] | | ------ CBC (HEMOGRAM) | | ONLY[[id number]] Abnormal Final | | result Please view [...] | + + + | | [facility] [address] [place] [address] | | | [place] [address] | + + + RENAL FUNCTION SET [...] | >60 | >60 mL/min | | [place] | | | + + + + | EGFR NON | >60 | >60 mL/min | | -[place] | | | + + + + [...] + + + | Blood | [facility], [facility] [address] | | | [place] [address] | + + + + + | [...] + + + | Blood | [facility], [address]ORE [address] | | | [place] [address] | + + + + + | [...] Laboratory | + + + | | [facility] [address] [place] [address] | | | [place] [address] | + + + MAGNESIUM, PLASMA (10/18/2017 9:01 AM) + +-------+ + | Component | Value | Ref Range | + +-------+ + | MAGNESIUM,PLASMA | 1.9 | 1.6 - 2.6 mg/dL | + +-------+ + + + + | Specimen | Performing Laboratory | + + + | Blood | [facility], CORE [address] [place] | | | [place] [address] | + + + + + | [...] | >60 | >60 mL/min | | [place] | | | + + + + | EGFR NON | >60 | >60 mL/min | | -[place] | | | + + + + [...] | + + + | Blood | [facility], [address] [place] [address] | | | [place] [address] | + + + + + | [...] Laboratory | + + + | | [facility] [address] [place] [address] | | | [place] [address] | + + + RENAL FUNCTION SET [...] | >60 | >60 mL/min | | [place] | | | + + + + | EGFR NON | >60 | >60 mL/min | | -[place] | | | + + + + [...] | + + + | Blood | [facility], [address]ORE [address] [place] [address] | | | [facility] [address] | + + + + + | [...] | + + + | Blood | [facility], [address]ORE [address] | | | [place] [address] | + + + + + | [...] Laboratory | + + + | | [facility] [address] [place] [address] | | | [place] [address] | + + + BASIC METABOLIC SET [...] | >60 | >60 mL/min | | [place] | | | + + + + | EGFR NON | >60 | >60 mL/min | | -[place] | | | + + + + [...] | + + + | Blood | [facility], CORE [address] [place] [address] | | | [place] [address] | + + + + + | [...] + + + | Blood | [facility], CORE [address] [address] | | | [place] [address] | + + + + + | [...] | | ------ CBC (HEMOGRAM) | | ONLY[[id number]] Abnormal Final | | result Please view results for these tests on the | | individual orders. | + + VASC LAB VENOUS DUPLEX LOWER EXTREMITY BILAT COMP (10/15/2017 3:08 PM) + + + | Specimen | Performing Laboratory | + + + | | [facility] VAS US | + + + [...] Note | + + | 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, Vitasol In Interface - 10/15/2017 3:58 PM PDT [...] Laboratory | + + + | | [facility] [address] [place] [address] | | | [place] [address] | + + + CAPILLARY BLOOD GLUCOSE (NO CHG), POC (10/15/2017 6:01 AM) + +---------+ + | Component | Value | Ref Range | + +---------+ + | BLOOD GLUCOSE, POC | 134 (H) | 70 - 99 mg/dL | + +---------+ + + + + | Specimen | Performing Laboratory | + + + | | [facility]INT [facility] TESTS [address] | | | [place] [address] | + + + CBC (HEMOGRAM) ONLY [...] + + + | Blood | [facility], CORE [address] [facility] | | | [place] [address] | + + + + + | [...] | | ------ CBC (HEMOGRAM) | | ONLY[[id number]] Abnormal Final | | result Please view [...] Laboratory | + + + | | [facility], POINT OF CARE TESTS [address] | | | [place] [address] | + + + 12 LEAD ECG [...] Laboratory | + + + | | [facility] [address] [facility] | | | [place] [address] | + + + CBC (HEMOGRAM) ONLY [...] | + + + | Blood | [facility], CORE [address] [address] | | | [place] [address] | + + + + + | [...] | >60 | >60 mL/min | | [place] | | | + + + + | EGFR NON | >60 | >60 mL/min | | -COLOMBIAN | | | + + + + [...] Blood | [facility], CORE [address] | | | [place] [address] | + + + + + | [...] | + + + | Blood | [facility], [facility] [address] | | | [place] [address] | + + + + + | [...] | | ------ CBC (HEMOGRAM) | | ONLY[[id number]] Abnormal Final | | result Please view [...] | + + + | | [facility], POINT OF CARE TESTS [address] | | | [place] [address] | + + + CAPILLARY BLOOD GLUCOSE [...] [address] | | | [place] [address] | + + + CBC (HEMOGRAM) ONLY [...] | + + + | Blood | [facility], CORE [address] | | | [place] [address] | + + + + + | [...] | >60 | >60 mL/min | | [place] | | | + + + + | EGFR NON | >60 | >60 mL/min | | -[place]OMBIAN | | | + + + + [...] | + + + | Blood | [facility], CORE [address] [place] [address] | | | [place] [address] | + + + + + | [...] | | ------ CBC (HEMOGRAM) | | ONLY[[id number]] Abnormal Final | | result Please view results for these tests on the | | individual orders. | + + OPERATION RECORD (10/12/2017 8:50 PM) + + | Procedure Note | + + | Pilar Cotto MD - 10/12/2017 8:50 PM PDT Date of Service: 10/12/2017 | | Attending Surgeon: Chaz Munoz MD Merchandise Adjustment Clerk(s): Randell Dixon M.D., | | fellow. George [...] saline. We then | | placed a 19-Scottish drain deep into the abscess cavity, tracking [...] 10/12/2017 19:50:06DT: 10/12/2017 20:50:54Job #: | | [id number] | + + X-RAY PORTABLE CHEST 1 VIEW (10/12/2017 7:50 PM) + + + | Specimen | Performing Laboratory | + + + | | [facility] VOICE RECOGNITION 2 | + + + + + | Narrative | + + | EXAM: VT CHEST 1 [...] Note | + + | 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, Daily Aisle Res In Interface - 10/13/2017 9:04 AM [...] | [facility] - [place] POINT OF [facility] TESTS [address] | | | [place] [address] | + + + CT ABDOMEN AND [...] MD 10/12/2017 5:04 PM | |Preliminary: Dae Iazguirre MD | |Dictation initiated: Dae Izaguirre MD [...] | + + + | Blood | [facility], CORE [address] [address] | | | [place] [address] | + + + + + | [...] | >60 | >60 mL/min | | [place] | | | + + + + | EGFR NON | >60 | >60 mL/min | | -[place]OMBIAN | | | + + + + [...] | + + + | Blood | [facility], CORE [address] [address] | | | [place] [address] | + + + + + | [...] | + + + | Blood | [facility], CORE [address] [place] [address] | | | [place] [address] | + + + + + | [...] Laboratory | + + + | | [facility] [address] [place] [address] | | | [place] [address] | + + + 12 LEAD ECG [...] Laboratory | + + + | | [facility] [address] [place] [address] | | | [place] [address] | + + + CBC (HEMOGRAM) ONLY [...] | + + + | Blood | [facility], CORE [address] [address] [address] | | | [place], [place] [address] | + + + + + | [...] | + + + | Blood | [facility], CORE [address] [place] [address] | | | [place] [address] | + + + + + | [...] | >60 | >60 mL/min | | [place] | | | + + + + | EGFR NON | >60 | >60 mL/min | | -[place]OMBIAN | | | + + + + [...] | + + + | Blood | [facility], CORE [address] [address] | | | [place] [address] | + + + + + | [...] | | ------ CBC (HEMOGRAM) | | ONLY[[id number]] Abnormal Final | | result Please view results for these tests on the | | individual orders. | + + PROCEDURE NOTE (10/10/2017 10:00 PM) + + | Narrative | + + | Darius Link MD 10/12/2017 11:11 AM OPERATIVE REPORT DATE OF | | OPERATION: 10/10/2017 ATTENDING SURGEON: 1. Dr. Munoz CONVENTION MANAGER: 1. Darius | | MD Nikolay INDICATIONS: Dysphagia and need for termite treater helper nutrition access | | PREOPERATIVE DIAGNOSIS: 1.Dysphagia and need for halfway nutrition access | | POSTOPERATIVE DIAGNOSIS: 1.Same [...] | Narrative | + + | William Hernandez MD 10/10/2017 10:26 AM INPATIENT BRIEF [...] to follow. | | [place] [address] Chief Resident Neurosurgery | + + CBC [...] + + + | Blood | [facility], CORE [address] | | | [place] [address] | + + + + + | [...] | | ------ CBC (HEMOGRAM) | | ONLY[[id number]] Abnormal Final | | result Please view [...] | >60 | >60 mL/min | | [place] | | | + + + + | EGFR NON | >60 | >60 mL/min | | -[place]OMBIAN | | | + + + + [...] | + + + | Blood | [facility], CORE [address] [facility] [address] | | | [place] [address] | + + + + + | [...] | + + + | Blood | [facility], CORE [address] | | | [place] [address] | + + + + + | Narrative | + + | Reference range change effective 12/11/16. | + + OPERATION RECORD (10/10/2017 12:40 PM) + + | Procedure Note | + + | Magdiel Stock MD - 10/10/2017 12:40 PM PDT Date of Service: 10/10/2017 Attending | | Surgeon: Magdiel Stock MD Merchandise Adjustment Clerk(s): William Hernandez, | | . Preoperative Diagnoses: [...] This is a 67-year-old male. Please see [facility] for full details. He | | [...] | the note for this encounter.Sonal Nunez MD[facility]ON [facility] [id number] [facility] | | [place] [phone] Orina, MDFA/MODLDD: | | 10/10/2017 11:52:15DT: 10/10/2017 12:40:41Job #: [id number] | | | | | |I was present for the critical portions of the procedure as described in the note for this encounter. | | | |Magdiel Stock MD | | | |Magdiel Stock MD | |[facility] [address] | |[address] | |[facility] | |[place] [address] | |[phone] | | | | | |Magdiel Stock MD | |FAH/MODL | | | | | | /[id number] | + + X-RAY ABDOMEN 1 VIEW [...] + + | Tissue - Head | [facility] [address] [place], [place] | | | [address] | + + + + + | [...] - Head | [facility] [place] [address] [place] [address] [facility], [place] | | | [address] | + + + + + | [...] + + | Swab - Head | [facility] [place] [address] [place], [place] | | | [address] | + + + + + | [...] + + | Swab - Head | [facility] [place] [address] [place], [place] | | | [address] | + + + + + | Narrative | + + | Culture Report: No acid fast bacteria isolated at 6 weeks. AFB Smear: AFB not | | detected | + + CULTURE, FUNGAL EXCEPT BLOOD, SKIN, HAIR, NAIL (10/10/2017 9:00 AM) + + + | Specimen | Performing Laboratory | + + + | Swab - Head | [facility] [address] [place] [address] | | | [address] | + + + + + | [...] + + | Swab - Head | [facility] [place] [address] [place], [place] | | | [address] | + + + + + | [...] + + | Swab - Head | [facility] [place] [address] [place], [place] | | | [address] | + + + + + | [...] + + | Tissue - Head | [facility] [place] [address] [place], [place] | | | [address] | + + + + + | [...] + + | Tissue - Head | [facility] [place] [address] [address] [place], [place] | | | [address] | + + + + + | [...] + + | Swab - Head | [facility] [place] [address] [place], [place] | | | [address] | + + + + + | [...] + + | Swab - Head | [facility] [address] [place], [place] | | | [address] | + + + + + | [...] + + | Swab - Head | [facility] [address] [address] [place], [place] | | | [address] | + + + + + | Narrative | + + | Culture Report: No acid fast bacteria isolated at 6 weeks. AFB Smear: AFB not | | detected | + + CULTURE, FUNGAL EXCEPT BLOOD, SKIN, HAIR, NAIL (10/10/2017 8:38 AM) + + + | Specimen | Performing Laboratory | + + + | Swab - Head | [facility] [place] [address] [address] [place], [place] | | | [address] | + + + + + | [...] + + | Swab - Head | [facility] [place] [address] [place], [place] | | | [address] | + + + + + | [...] + + | Swab - Head | [facility] [place] [address] [place], [place] | | | [address] | + + + + + | Narrative | + + | Culture Report: No acid fast bacteria isolated at 6 weeks. AFB Smear: AFB not | | detected | + + CULTURE, FUNGAL EXCEPT BLOOD, SKIN, HAIR, NAIL (10/10/2017 8:31 AM) + + + | Specimen | Performing Laboratory | + + + | Swab - Head | [facility] [place] [address] [address] [place], [place] | | | [address] | + + + + + | [...] Head | [facility] [place] [address] [place], [place] | | | [address] | + + + + + | [...] + + | Swab - Head | [facility] [address] [place], [place] | | | [address] | + + + + + | Narrative | + + | Culture Report: No acid fast bacteria isolated at 6 weeks. AFB Smear: AFB not | | detected | + + CT HEAD WO CONTRAST (10/10/2017 3:01 AM) + + + | Specimen | Performing Laboratory | + + + | | [facility] VOICE RECOGNITION 2 | + + [...] | + + + | Blood | [facility], CORE [address] | | | [place] [address] | + + + CBC (HEMOGRAM) ONLY [...] + + + | Blood | [facility], CORE [address] | | | [place] [address] | + + + + + | [...] | | ------ CBC (HEMOGRAM) | | ONLY[[id number]] Abnormal Final | | result Please view [...] | + + + | Blood | [facility], [facility] [address] [place] [address] | | | [place] [address] | + + + + + | [...] | >60 | >60 mL/min | | [place] | | | + + + + | EGFR NON | >60 | >60 mL/min | | -[place]OMBIAN | | | + + + + [...] | + + + | Blood | [facility], CORE [address] [facility] [address] [address] | | | [place] [address] | + + + + + | [...] Laboratory | + + + | | [facility] DEPT OF CARDIOLOGY [address] [place] [address] | | | [place] [address] | + + + PRODUCT - RED CELLS LEUKOREDUCED (10/09/2017 5:12 PM) + + + + | Component | Value | Ref Range | + + + + | PRODUCT DESCRIPTION | -1 RED BLOOD CELL ADENINE-SALINE ADDED | | | | LEUKOCYTE | | + + + + | PRODUCT UNIT # | [id number] | | + + + + | UNIT ABO | O | | + + + + | UNIT RH | POS | | + + + + | STATUS OF UNIT | Returned to Blood Bank | | + + + + | EXPIRATION DATE | [id number] | | + + + + | BLOOD TYPE BARCODE | 5100 | | + + + + | BLOOD PRODUCT CODE | [id number] | | + + + + + + + | Specimen | Performing Laboratory | + + + | | [facility], TRANSF[facility]ION MEDICINE [address] [facility] | | | [place] [facility] [place] [address] | + + + PRODUCT - RED CELLS LEUKOREDUCED (10/09/2017 5:12 PM) + + + + | Component | Value | Ref Range | + + + + | PRODUCT DESCRIPTION | -1 RED BLOOD CELL ADENINE-SALINE ADDED | | | | LEUKOCYTE | | + + + + | PRODUCT UNIT # | [id number] | | + + + + | UNIT ABO | O | | + + + + | UNIT RH | POS | | + + + + | STATUS OF UNIT | Returned to Blood Bank | | + + + + | EXPIRATION DATE | [id number] | | + + + + | BLOOD TYPE BARCODE | 5100 | | + + + + | BLOOD PRODUCT CODE | [id number] | | + + + + + + + | Specimen | Performing Laboratory | + + + | | [facility], [facility] [address] [place] [address] | | | [place] [address] | + + + ANTIBODY IDENTIFICATION (10/09/2017 5:01 PM) + + + + | Component | Value | Ref Range | + + + + | ANTIBODY 1 | Antibody present, unable to identify | | + + + + + + + | Specimen | Performing Laboratory | + + + | Blood | [facility], TRANSF[facility]ION MEDICINE [address] [facility] | | | [place] [address] | + + + ANTIBODY SCREEN (10/09/2017 5:01 PM) + + + + | Component | Value | Ref Range | + + + + | Antibody Screen | Positive | | + + + + + + + | Specimen | Performing Laboratory | + + + | Blood | [facility], TRANSF[facility] MEDICINE [address] [facility] | | | [place] [address] | + + + ABO & RH [...] | + + + | Blood | [facility], TRANSF[facility]ION MEDICINE [address] [facility] | | | [place] [address] | + + + TYPE AND SCREEN [...] | ------ ABO & RH | | TYPE[[id number]] F | | inal result ANTIBODY | | SCREEN[[id number]] Fin | | al result Please view [...] + + + | Blood | [facility], [facility] [address] [facility] [address] | | | [place] [address] | + + + + + | [...] | + + + | | [facility] [address] [place] [address] | | | [place] [address] | + + + VASC LAB VENOUS [...] Note | + + | 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, Daily Aisle Res In Interface - 10/08/2017 10:47 AM [...] [facility], POINT OF CARE TESTS [address] [facility] [address] | | | [place] [address] | + + + CBC (HEMOGRAM) ONLY [...] | + + + | Blood | [facility], CORE [address] | | | [place] [address] | + + + + + | [...] + + + | Blood | [facility], CORE [address] [facility] | | | [place] [address] | + + + + + | [...] | | ------ CBC (HEMOGRAM) | | ONLY[[id number]] Abnormal Final | | result Please view [...] | >60 | >60 mL/min | | [place] | | | + + + + | EGFR NON | >60 | >60 mL/min | | -[place] | | | + + + + [...] | + + + | Blood | [facility], [facility] [address] | | | [place] [address] | + + + + + | [...] Laboratory | + + + | | [facility] [place], POINT OF CARE TESTS [address] | | | [place] [address] | + + + CAPILLARY BLOOD GLUCOSE (NO CHG), POC (10/07/2017 10:30 PM) + +---------+ + | Component | Value | Ref Range | + +---------+ + | BLOOD GLUCOSE, POC | 173 (H) | 70 - 99 mg/dL | + +---------+ + + + + | Specimen | Performing Laboratory | + + + | | [facility] POINT OF CARE TESTS [address] | | | [place] [address] | + + + CAPILLARY BLOOD GLUCOSE [...] TESTS [address] | | | [place] [address] | + + + CAPILLARY BLOOD GLUCOSE (NO CHG), POC (10/07/2017 11:43 AM) + +---------+ + | Component | Value | Ref Range | + +---------+ + | BLOOD GLUCOSE, POC | 142 (H) | 70 - 99 mg/dL | + +---------+ + + + + | Specimen | Performing Laboratory | + + + | | [facility] TESTS [address] | | | [place] [address] | + + + CAPILLARY BLOOD GLUCOSE (NO CHG), POC (10/07/2017 6:33 AM) + +---------+ + | Component | Value | Ref Range | + +---------+ + | BLOOD GLUCOSE, POC | 117 (H) | 70 - 99 mg/dL | + +---------+ + + + + | Specimen | Performing Laboratory | + + + | | [facility] [place], POINT OF CARE TESTS [address] | | | [place] [address] | + + + CBC (HEMOGRAM) ONLY [...] | + + + | Blood | [facility], CORE [address] | | | [place] [address] | + + + + + | [...] | + + + | Blood | [facility], CORE [address] [facility] | | | [place] [address] | + + + + + | [...] | | ------ CBC (HEMOGRAM) | | ONLY[[id number]] Abnormal Final | | result Please view [...] | >60 | >60 mL/min | | [place] | | | + + + + | EGFR NON | >60 | >60 mL/min | | -[place] | | | + + + + [...] | + + + | Blood | [facility], CORE [address] [facility] [address] | | | [place] [address] | + + + + + | [...] Laboratory | + + + | | [facility] [place] POINT OF CARE TESTS [address] | | | [place] [address] | + + + CAPILLARY BLOOD GLUCOSE (NO CHG), POC (10/06/2017 6:03 PM) + +---------+ + | Component | Value | Ref Range | + +---------+ + | BLOOD GLUCOSE, POC | 107 (H) | 70 - 99 mg/dL | + +---------+ + + + + | Specimen | Performing Laboratory | + + + | | [facility] - [place], POINT OF CARE TESTS [address] | | | [place] [address] | + + + 12 LEAD ECG [...] Laboratory | + + + | | [facility] [address] [place] [address] | | | [place] [address] | + + + CAPILLARY BLOOD GLUCOSE (NO CHG), POC (10/06/2017 12:03 PM) + +-------+ + | Component | Value | Ref Range | + +-------+ + | BLOOD GLUCOSE, POC | 87 | 70 - 99 mg/dL | + +-------+ + + + + | Specimen | Performing Laboratory | + + + | | [facility], POINT OF CARE TESTS [address] | | | [place] [address] | + + + CBC (HEMOGRAM) ONLY [...] | + + + | Blood | [facility] [address] [facility] [address] | | | [place] [address] | + + + + + | [...] | + + + | Blood | [facility], CORE [address] [facility] | | | [place], [place] [address] | + + + + + | [...] | | ------ CBC (HEMOGRAM) | | ONLY[[id number]] Abnormal Final | | result Please view [...] | >60 | >60 mL/min | | [place] | | | + + + + | EGFR NON | >60 | >60 mL/min | | -[place] | | | + + + + [...] | + + + | Blood | [facility], CORE [address] | | | [place] [address] | + + + + + | [...] Laboratory | + + + | | [facility], POINT OF CARE TESTS [address] | | | [place] [address] | + + + CAPILLARY BLOOD GLUCOSE (NO CHG), POC (10/06/2017 1:04 AM) + +-------+ + | Component | Value | Ref Range | + +-------+ + | BLOOD GLUCOSE, POC | 91 | 70 - 99 mg/dL | + +-------+ + + + + | Specimen | Performing Laboratory | + + + | | [facility] [place], POINT OF CARE TESTS [address] | | | [place] [address] | + + + CAPILLARY BLOOD GLUCOSE [...] [address] | | | [place] [address] | + + + CAPILLARY BLOOD GLUCOSE [...] [address] | | | [place] [address] | + + + 12 LEAD ECG [...] Laboratory | + + + | | [facility] [address] [place] [address] | | | [place] [address] | + + + CBC (HEMOGRAM) ONLY [...] | + + + | Blood | [facility], [facility] [address] | | | [place] [address] | + + + + + | [...] | + + + | Blood | [facility], CORE [address] [facility] [address] | | | [place] [address] | + + + + + | [...] | | ------ CBC (HEMOGRAM) | | ONLY[[id number]] Abnormal Final | | result Please view [...] | >60 | >60 mL/min | | [place] | | | + + + + | EGFR NON | >60 | >60 mL/min | | -[place] | | | + + + + [...] | + + + | Blood | [facility], CORE [address] | | | [place] [address] | + + + + + | [...] [address] | | | [place] [address] | + + + CAPILLARY BLOOD GLUCOSE [...] [address] | | | [place] [address] | + + + CAPILLARY BLOOD GLUCOSE (NO CHG), POC (10/04/2017 5:47 PM) + +---------+ + | Component | Value | Ref Range | + +---------+ + | BLOOD GLUCOSE, POC | 123 (H) | 70 - 99 mg/dL | + +---------+ + + + + | Specimen | Performing Laboratory | + + + | | [facility], POINT OF CARE TESTS [address] | | | [place] [address] | + + + CAPILLARY BLOOD GLUCOSE (NO CHG), POC (10/04/2017 12:30 PM) + +---------+ + | Component | Value | Ref Range | + +---------+ + | BLOOD GLUCOSE, POC | 137 (H) | 70 - 99 mg/dL | + +---------+ + + + + | Specimen | Performing Laboratory | + + + | | [facility], POINT OF CARE TESTS [address] | | | [place] [address] | + + + CAPILLARY BLOOD GLUCOSE (NO CHG), POC (10/04/2017 5:55 AM) + +---------+ + | Component | Value | Ref Range | + +---------+ + | BLOOD GLUCOSE, POC | 128 (H) | 70 - 99 mg/dL | + +---------+ + + + + | Specimen | Performing Laboratory | + + + | | [facility], POINT OF CARE TESTS [address] | | | [place] [address] | + + + CBC (HEMOGRAM) ONLY [...] | + + + | Blood | [facility], [facility] [address] | | | [place] [address] | + + + + + | [...] | + + + | Blood | [facility], CORE [address] [address] | | | [place] [address] | + + + + + | [...] | | ------ CBC (HEMOGRAM) | | ONLY[[id number]] Abnormal Final | | result Please view [...] | >60 | >60 mL/min | | [place] | | | + + + + | EGFR NON | >60 | >60 mL/min | | -[place] | | | + + + + [...] | + + + | Blood | [facility], CORE [address] | | | [place] [address] | + + + + + | [...] [address] | | | [place] [address] | + + + CAPILLARY BLOOD GLUCOSE [...] [address] | | | [place] [address] | + + + URINE, MICROSCOPIC EXAM [...] + | Urine - Clean catch | [facility], CORE [address] [place] [address] RD | | | [place] [address] | + + + RPR SERUM (10/03/2017 3:36 PM) + + + + | Component | Value | Ref Range | + + + + | RPR SRM QUAL | Non ReactiveComment: Rapid Plasma Reagin | Non Reactive | | | screening test is Non-Reactive. No further | | | | reflex testing is required.Performed by | | | | [facility],[address] [facility],[place] | | | | [id number] [email or web address], [email or web address] | | | | MD Arcadio, Lab. Director | | | [email or web address], Gui Ervin MD, Lab. Director | | + + + + + + + | Specimen | Performing Laboratory | + + + | Blood | [facility] - INT [address] [facility] | | | [place] [address] | + + + VITAMIN B-12 (10/03/2017 [...] | + + + | Blood | [facility], CORE [address] | | | [place] [address] | + + + TSH (10/03/2017 3:36 PM) + + + + | Component | Value | Ref Range | + + + + | TSH | 0.33 (L) | 0.46 - 5.56 mIU/L | + + + + + + + | Specimen | Performing Laboratory | + + + | Blood | [facility], CORE [address] | | | [place] [address] | + + + + + | [...] | + + + | Blood | [facility], SPECIAL IMM + COA [address] [facility] | | | [place] [address] | + + + + + | Narrative | + + | HIV-1 p24 Ag and HIV-1,2 Ab not detected. Test modified from original | | ocular care aide's approved specifications. The performance of the LAY OUT INSPECTOR HIV Combo | | test, with or [...] [address] | | | [place] [address] | + + + CAPILLARY BLOOD GLUCOSE [...] [address] | | | [place] [address] | + + + CBC (HEMOGRAM) ONLY [...] | + + + | Blood | [facility], CORE [address] [facility] | | | [place] [address] | + + + + + | [...] | + + + | Blood | [facility], CORE [address] [facility] | | | [place] [address] | + + + + + | [...] | | ------ CBC (HEMOGRAM) | | ONLY[[id number]] Abnormal Final | | result Please view [...] | >60 | >60 mL/min | | [place] | | | + + + + | EGFR NON | >60 | >60 mL/min | | -[place] | | | + + + + [...] + + + | Blood | [facility], CORE [address] [facility] | | | [place] [address] | + + + + + | [...] + + + | | [facility] POINT OF CARE TESTS [address] | | | [place] [address] | + + + X-RAY SPINE CERVICAL [...] [address] | | | [place] [address] | + + + 12 LEAD ECG [...] + | | [facility] [address] | | | [place] [address] | + + + PROCEDURE NOTE (10/02/2017 [...] Laboratory | + + + | | [facility] VOICE RECOGNITION 2 | + + + + + | Narrative | + + | EXAM: VT CHEST 1 [...] + + + | | [facility] PICKETT [place], POINT OF CARE TESTS [address] | | | [place] [address] | + + + X-RAY PORTABLE CHEST 1 VIEW (10/02/2017 8:56 AM) + + + | Specimen | Performing Laboratory | + + + | | [facility] VOICE RECOGNITION 2 | + + + + + | Narrative | + + | EXAM: VT CHEST 1 [...] [address] | | | [place] [address] | + + + CBC (HEMOGRAM) ONLY [...] | + + + | Blood | [facility], CORE [address] [facility] | | | [place] [address] | + + + + + | [...] | + + + | Blood | [facility], CORE [address] [facility] | | | [place] [address] | + + + + + | [...] | | ------ CBC (HEMOGRAM) | | ONLY[[id number]] Abnormal Final | | result Please view [...] | >60 | >60 mL/min | | [place] | | | + + + + | EGFR NON | >60 | >60 mL/min | | -[place] | | | + + + + [...] | + + + | Blood | [facility], CORE [address] [facility] | | | [place] [address] | + + + + + | [...] [address] | | | [place] [address] | + + + CAPILLARY BLOOD GLUCOSE [...] [address] | | | [place] [address] | + + + X-RAY ABD LTD FEEDING TUBE EVAL (10/01/2017 1:23 PM) + + + | Specimen | Performing Laboratory | + + + | | [facility] VOICE RECOGNITION 2 | + + [...] [address] | | | [place] [address] | + + + [facility] VENOUS DUPLEX LOWER EXTREMITY BILAT COMP (10/01/2017 11:14 AM) + + + | Specimen | Performing Laboratory | + + + | | [facility] VAS US | + + + [...] Note | + + | 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, Daily Aisle Res In Interface - 10/01/2017 11:34 AM [...] [address] | | | [place] [address] | + + + CBC (HEMOGRAM) ONLY [...] + + + | Blood | [facility], CORE [address] [facility] | | | [place] [address] | + + + + + | [...] | + + + | Blood | [facility], CORE [address] | | | [place] [address] | + + + + + | [...] | | ------ CBC (HEMOGRAM) | | ONLY[[id number]] Abnormal Final | | result Please view [...] | >60 | >60 mL/min | | [place] | | | + + + + | EGFR NON | >60 | >60 mL/min | | -[place] | | | + + + + [...] | + + + | Blood | [facility], CORE [address] [facility] | | | [place] [address] | + + + + + | [...] + + + | | [facility] PICKETT [place], POINT OF CARE TESTS [address] | | | [place] [address] | + + + CAPILLARY BLOOD GLUCOSE [...] TESTS [address] | | | [place] [address] | + + + 12 LEAD ECG [...] IMPRESSION | Electronically signed by: AJAY DE LO SSANTOS | | | | 10-01-2017 19:45:35 | | + + + + + + + | Specimen | Performing Laboratory | + + + | | [facility] [address] [place] [address] | | | [place] [address] | + + + CT HEAD WO CONTRAST (09/30/2017 1:02 PM) + + + | Specimen | Performing Laboratory | + + + | | [facility] VOICE RECOGNITION 2 | + + [...] Note | + + | 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, Daily Aisle Res In Interface - 09/30/2017 1:28 PM [...] [address] | | | [place] [address] | + + + CAPILLARY BLOOD GLUCOSE (NO CHG), POC (09/30/2017 6:26 AM) + +---------+ + | Component | Value | Ref Range | + +---------+ + | BLOOD GLUCOSE, POC | 151 (H) | 70 - 99 mg/dL | + +---------+ + + + + | Specimen | Performing Laboratory | + + + | | [facility], POINT OF CARE TESTS [address] | | | [place] [address] | + + + CBC (HEMOGRAM) ONLY [...] | + + + | Blood | [facility], CORE [address] [place] [address] | | | [place] [address] | + + + + + | [...] | + + + | Blood | [facility], CORE [address] [facility] | | | [place] [address] | + + + + + | [...] | | ------ CBC (HEMOGRAM) | | ONLY[[id number]] Abnormal Final | | result Please view [...] | >60 | >60 mL/min | | [place] | | | + + + + | EGFR NON | >60 | >60 mL/min | | -[place] | | | + + + + [...] | + + + | Blood | [facility], CORE [address] [place] [address] | | | [place] [address] | + + + + + | [...] Laboratory | + + + | | [facility], POINT OF CARE TESTS [address] | | | [place] [address] | + + + CAPILLARY BLOOD GLUCOSE [...] [address] | | | [place] [address] | + + + CAPILLARY BLOOD GLUCOSE [...] [address] | | | [place] [address] | + + + 12 LEAD ECG [...] | + + + | | [facility] [address] | | | [place] [address] | + + + CAPILLARY BLOOD GLUCOSE [...] [address] | | | [place] [address] | + + + MAGNESIUM, PLASMA (09/29/2017 4:30 AM) + +-------+ + | Component | Value | Ref Range | + +-------+ + | MAGNESIUM,PLASMA | 2.1 | 1.6 - 2.6 mg/dL | + +-------+ + + + + | Specimen | Performing Laboratory | + + + | Blood | [facility], CORE [address] [facility] [address] | | | [place] [address] | + + + + + | [...] | >60 | >60 mL/min | | [place] | | | + + + + | EGFR NON | >60 | >60 mL/min | | -[place] | | | + + + + [...] + + + | Blood | [facility], CORE [address] [facility] | | | [place] [address] | + + + + + | [...] | + + + | Blood | [facility], CORE [address] [facility] | | | [place] [address] | + + + + + | [...] | | ------ CBC (HEMOGRAM) | | ONLY[[id number]] Abnormal Final | | result Please view [...] [address] | | | [place] [address] | + + + CAPILLARY BLOOD GLUCOSE (NO CHG), POC (09/28/2017 5:26 PM) + +---------+ + | Component | Value | Ref Range | + +---------+ + | BLOOD GLUCOSE, POC | 112 (H) | 70 - 99 mg/dL | + +---------+ + + + + | Specimen | Performing Laboratory | + + + | | [facility], POINT OF CARE TESTS [address] | | | [place] [address] | + + + CAPILLARY BLOOD GLUCOSE [...] [address] | | | [place] [address] | + + + 12 LEAD ECG [...] Laboratory | + + + | | [facility] [address] [place] [address] | | | [place] [address] | + + + CAPILLARY BLOOD GLUCOSE [...] [address] | | | [place] [address] | + + + CBC (HEMOGRAM) ONLY [...] + + + | Blood | [facility], CORE [address] [facility] | | | [place] [address] | + + + + + | [...] | + + + | Blood | [facility], CORE [address] [facility] [address] | | | [place] [address] | + + + + + | [...] | | ------ CBC (HEMOGRAM) | | ONLY[[id number]] Abnormal Final | | result Please view [...] | >60 | >60 mL/min | | [place] | | | + + + + | EGFR NON | >60 | >60 mL/min | | -[place] | | | + + + + [...] | + + + | Blood | [facility], CORE [address] [facility] | | | [place] [address] | + + + + + | [...] [address] | | | [place] [address] | + + + CAPILLARY BLOOD GLUCOSE [...] TESTS [address] | | | [place] [address] | + + + MODIFIED BARIUM SWALLOWING [...] Note | + + | 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, Daily Aisle Res In Interface - 09/27/2017 2:19 PM [...] poorly cleared with dry swallows. Please see [facility] pathology report for full details [...] + + + | | [facility]ICKET[facility] [place], POINT OF CARE TESTS [address] | | | [place] [address] | + + + CAPILLARY BLOOD GLUCOSE (NO CHG), POC (09/27/2017 5:58 AM) + +---------+ + | Component | Value | Ref Range | + +---------+ + | BLOOD GLUCOSE, POC | 171 (H) | 70 - 99 mg/dL | + +---------+ + + + + | Specimen | Performing Laboratory | + + + | | [facility], POINT OF CARE TESTS [address] | | | [place] [address] | + + + CBC (HEMOGRAM) ONLY [...] | + + + | Blood | [facility], CORE [address] [facility] | | | [place] [address] | + + + + + | [...] | | ------ CBC (HEMOGRAM) | | ONLY[[id number]] Abnormal Final | | result Please view [...] | + + + | Blood | [facility], CORE [address] | | | [place] [address] | + + + + + | [...] | >60 | >60 mL/min | | [place] | | | + + + + | EGFR NON | >60 | >60 mL/min | | -[place] | | | + + + + [...] | + + + | Blood | [facility], CORE [address] | | | [place] [address] | + + + + + | [...] [address] | | | [place] [address] | + + + CAPILLARY BLOOD GLUCOSE (NO CHG), POC (09/26/2017 5:32 PM) + +---------+ + | Component | Value | Ref Range | + +---------+ + | BLOOD GLUCOSE, POC | 130 (H) | 70 - 99 mg/dL | + +---------+ + + + + | Specimen | Performing Laboratory | + + + | | [facility] GENAO POINT OF [facility] TESTS [address] | | | [place] [address] | + + + 12 LEAD ECG [...] Laboratory | + + + | | [facility] [address] [place] [address] | | | [place] [address] | + + + CAPILLARY BLOOD GLUCOSE [...] [address] | | | [place] [address] | + + + CAPILLARY BLOOD GLUCOSE (NO CHG), POC (09/26/2017 9:22 AM) + +---------+ + | Component | Value | Ref Range | + +---------+ + | BLOOD GLUCOSE, POC | 119 (H) | 70 - 99 mg/dL | + +---------+ + + + + | Specimen | Performing Laboratory | + + + | | [facility], POINT OF [facility]ARE TESTS [address] | | | [place] [address] | + + + CAPILLARY BLOOD GLUCOSE [...] TESTS [address] | | | [place] [address] | + + + CBC (HEMOGRAM) ONLY [...] | + + + | Blood | [facility], CORE [address] | | | [place] [address] | + + + + + | [...] | + + + | Blood | [facility], CORE [address] [facility] | | | [place] [address] | + + + + + | [...] | | ------ CBC (HEMOGRAM) | | ONLY[[id number]] Abnormal Final | | result Please view [...] | >60 | >60 mL/min | | [place] | | | + + + + | EGFR NON | >60 | >60 mL/min | | -[place] | | | + + + + [...] | + + + | Blood | [facility], [facility] [address] | | | [place] [address] | + + + + + | [...] + + + | | [facility]USH [place], POINT OF CARE TESTS [address] | | | [place] [address] | + + + MRI BRAIN WWO CONTRAST (09/25/2017 6:54 AM) + + + | Specimen | Performing Laboratory | + + + | | [facility] VOICE RECOGNITION 2 | + + [...] | + + + | Blood | [facility], CORE [address] [facility] | | | [place] [address] | + + + + + | [...] | + + + | Blood | [facility], CORE [address] [facility] [address] | | | [place] [address] | + + + + + | [...] | | ------ CBC (HEMOGRAM) | | ONLY[[id number]] Abnormal Final | | result Please view [...] | >60 | >60 mL/min | | [place] | | | + + + + | EGFR NON | >60 | >60 mL/min | | -[place] | | | + + + + [...] + + + | Blood | [facility], CORE [address] [place] [address] | | | [place] [address] | + + + + + | [...] | + + + | | [facility] [address] [place] [address] | | | [facility] [address] | + + + MODIFIED BARIUM SWALLOWING [...] Note | + + | 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, Vitasol In Interface - 09/24/2017 4:09 PM PDT [...] | + + + | Blood | [facility], CORE [address] [facility] [address] | | | [place] [address] | + + + + + | [...] | >60 | >60 mL/min | | [place] | | | + + + + | EGFR NON | >60 | >60 mL/min | | -[place] | | | + + + + [...] | + + + | Blood | [facility], CORE [address] [place] [address] | | | [place] [address] | + + + + + | [...] | + + + | Blood | [facility], CORE [address] [facility] [address] | | | [place] [address] | + + + + + | [...] | | ------ CBC (HEMOGRAM) | | ONLY[[id number]] Abnormal Final | | result Please view [...] | + + + | Blood | [facility], CORE [address] [facility] [address] | | | [place] [address] | + + + + + | [...] | + + + | Blood | [facility], CORE [address] [facility] | | | [place] [address] | + + + + + | [...] | | ------ CBC (HEMOGRAM) | | ONLY[[id number]] Abnormal Final | | result Please view [...] | >60 | >60 mL/min | | [place] | | | + + + + | EGFR NON | >60 | >60 mL/min | | -[place] | | | + + + + [...] | + + + | Blood | [facility], CORE [address] | | | [facility] [address] | + + + + + | [...] + + + | | [facility]USH [place], POINT OF CARE TESTS [address] | | | [place] [address] | + + + CAPILLARY BLOOD GLUCOSE (NO CHG), POC (09/22/2017 1:29 PM) + +---------+ + | Component | Value | Ref Range | + +---------+ + | BLOOD GLUCOSE, POC | 113 (H) | 70 - 99 mg/dL | + +---------+ + + + + | Specimen | Performing Laboratory | + + + | | [facility] - [facility] [place] POINT OF [facility] TESTS [address] | | | [place] [address] | + + + CT HEAD WO [...] | + + + | Blood | [facility], [facility] [address] | | | [place] [address] | + + + 12 LEAD ECG [...] Laboratory | + + + | | [facility] [address] [place] [address] | | | [place] [address] | + + + CBC (HEMOGRAM) ONLY [...] + + + | Blood | [facility], CORE [address] [place] [address] | | | [place] [address] | + + + + + | [...] | + + + | Blood | [facility], CORE [address] | | | [place] [address] | + + + + + | [...] | | ------ CBC (HEMOGRAM) | | ONLY[[id number]] Abnormal Final | | result Please view [...] | >60 | >60 mL/min | | [place] | | | + + + + | EGFR NON | >60 | >60 mL/min | | -[place] | | | + + + + [...] | + + + | Blood | [facility], CORE [address] [facility] [address] | | | [facility] [place] [address] | + + + + + | [...] + + + | | [facility], POINT OF [facility] TESTS [address] | | | [place] [address] | + + + CT HEAD WO CONTRAST (09/21/2017 9:53 PM) + + + | Specimen | Performing Laboratory | + + + | | [facility] VOICE RECOGNITION 2 | + + [...] | + + + | Blood | [facility], CORE [address] [facility] [address] | | | [place] [address] | + + + + + | [...] | + + + | Blood | [facility], CORE [address] [facility] [address] | | | [place] [address] | + + + + + | [...] | | ------ CBC (HEMOGRAM) | | ONLY[[id number]] Abnormal Final | | result Please view [...] | >60 | >60 mL/min | | [place] | | | + + + + | EGFR NON | >60 | >60 mL/min | | -[place] | | | + + + + [...] | + + + | Blood | [facility], CORE [address] [address] | | | [place] [address] | + + + + + | [...] Laboratory | + + + | | [facility] VOICE RECOGNITION 2 | + + [...] Laboratory | + + + | | [facility] VOICE RECOGNITION 2 | + + [...] Note | + + | 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, Daily Aisle Res In Interface - 09/20/2017 6:26 PM [...] Laboratory | + + + | | [facility] VOICE RECOGNITION 2 | + + [...] Note | + + | 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, Daily Aisle Res In Interface - 09/20/2017 5:17 PM [...] Laboratory | + + + | | [facility] [address] [place] [address] | | | [place] [address] | + + + CBC (HEMOGRAM) ONLY [...] | + + + | Blood | [facility], CORE [address] [place] [address] | | | [place] [address] | + + + + + | [...] | + + + | Blood | [facility], CORE [address] [facility] [address] | | | [place] [address] | + + + + + | [...] | | ------ CBC (HEMOGRAM) | | ONLY[[id number]] Abnormal Final | | result Please view [...] | >60 | >60 mL/min | | [place] | | | + + + + | EGFR NON | >60 | >60 mL/min | | -[place] | | | + + + + [...] | + + + | Blood | [facility], [address] | | | [place] [address] | + + + + + | [...] | + + + | Blood | [facility], CORE [address] [facility] [address] | | | [place] [address] | + + + + + | [...] | + + + | Blood | [facility], CORE [address] | | | [place] [address] | + + + + + | [...] | | ------ CBC (HEMOGRAM) | | ONLY[[id number]] Abnormal Final | | result Please view [...] | >60 | >60 mL/min | | [place] | | | + + + + | EGFR NON | >60 | >60 mL/min | | -[place] | | | + + + + [...] + + + | Blood | [facility], CORE [facility] [address] | | | [place] [address] | + + + + + | [...] | + + + | Blood | [facility], CORE [address] [facility] [address] | | | [place] [address] | + + + + + | [...] + + + | Blood | [facility], CORE [address] | | | [place] [address] | + + + + + | [...] | | ------ CBC (HEMOGRAM) | | ONLY[[id number]] Abnormal Final | | result Please view [...] | >60 | >60 mL/min | | [place] | | | + + + + | EGFR NON | >60 | >60 mL/min | | -[place] | | | + + + + [...] | + + + | Blood | [facility], [address] | | | [place] [address] | + + + + + | [...] Note | + + | 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, Vitasol In Interface - 09/17/2017 11:53 AM PDT [...] | + + + | Blood | [facility], [address] | | | [place], [place] [address] | + + + + + | [...] | + + + | Blood | [facility], [address]ORE [address] [place] [address] | | | [place] [address] | + + + + + | [...] | | ------ CBC (HEMOGRAM) | | ONLY[[id number]] Abnormal Final | | result Please view [...] | >60 | >60 mL/min | | [place] | | | + + + + | EGFR NON | >60 | >60 mL/min | | -[place] | | | + + + + [...] | + + + | Blood | [facility], [address] | | | [place] [address] | + + + + + | [...] Laboratory | + + + | | [facility] VOICE RECOGN[facility] | + + + + + | Narrative | + + | EXAM: VT CHEST PICC [...] Laboratory | + + + | | [facility] VOICE RECOGN[facility] | + + + + + | Narrative | + + | EXAM: VT CHEST PICC [...] Note | + + | 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, Vitasol In Interface - 09/16/2017 11:41 AM PDT [...] | + + + | Blood | [facility], [facility] [address] | | | [place] [address] | + + + + + | [...] | + + + | Blood | [facility], [address] | | | [place], [place] [address] | + + + + + | [...] | | ------ CBC (HEMOGRAM) | | ONLY[[id number]] Abnormal Final | | result Please view [...] | >60 | >60 mL/min | | [place] | | | + + + + | EGFR NON | >60 | >60 mL/min | | -[place] | | | + + + + [...] | + + + | Blood | [facility], [address] | | | [place] [address] | + + + + + | [...] Laboratory | + + + | | [facility] VOICE RECOGNITION | + + + + + | Narrative | + + | EXAM: VT CHEST 1 VIEW HISTORY: COMPARISON: None. FINDINGS: [...] Laboratory | + + + | | [facility] VOICE RECOGNITION | + + + + + | Narrative | + + | EXAM: VT CHEST PICC [...] | | Procedure Note Indications:TPN Procedure location: Unit:[facility] Room: 12 Providers: | | Attending name: [...] A pause verifies correct patient, procedure, equipment, java support engineer and | | site/side marked as required. [...] Arm area Basilic vein. Catheter lot number: [id number] with a length of 55 cm | [...] Laboratory | + + + | | [facility] VOICE RECOGNITION | + + + [...] Note | + + | 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, Daily Aisle Res In Interface - 09/15/2017 2:13 PM [...] | + + + | Blood | [facility], [facility] [address] | | | [place] [address] | + + + + + | [...] | + + + | Blood | [facility], CORE [address] | | | [facility] [address] | + + + + + | [...] | | ------ CBC (HEMOGRAM) | | ONLY[[id number]] Abnormal Final | | result Please view [...] | >60 | >60 mL/min | | [place] | | | + + + + | EGFR NON | >60 | >60 mL/min | | -[place] | | | + + + + [...] | + + + | Blood | [facility], CORE [address] | | | [place] [address] | + + + + + | [...] Laboratory | + + + | | [facility] VOICE RECOGNITION | + + + [...] | + + + | Blood | [facility], CORE [address] | | | [place] [address] | + + + + + | [...] | + + + | Blood | [facility], CORE [address] | | | [place] [address] | + + + + + | [...] | | ------ CBC (HEMOGRAM) | | ONLY[[id number]] Abnormal Final | | result Please view [...] | >60 | >60 mL/min | | [place] | | | + + + + | EGFR NON | >60 | >60 mL/min | | -[place] | | | + + + + [...] | + + + | Blood | [facility], CORE [address] | | | [place] [address] | + + + + + | [...] | + + + | Blood | [facility], CORE [address] | | | [place] [address] | + + + + + | [...] | + + + | Blood | [facility], CORE [address] | | | [place] [address] | + + + + + | [...] | | ------ CBC (HEMOGRAM) | | ONLY[[id number]] Abnormal Final | | result Please view [...] | >60 | >60 mL/min | | [place] | | | + + + + | EGFR NON | >60 | >60 mL/min | | -[place] | | | + + + + [...] | + + + | Blood | [facility], CORE [address] | | | [place] [address] | + + + + + | [...] + + + | Blood | [facility], CORE [address] | | | [place] [address] | + + + + + | [...] | + + + | Blood | [facility], CORE [address] [place] [address] | | | [place] [address] | + + + + + | [...] | | ------ CBC (HEMOGRAM) | | ONLY[[id number]] Abnormal Final | | result Please view [...] | >60 | >60 mL/min | | [place] | | | + + + + | EGFR NON | >60 | >60 mL/min | | -[place] | | | + + + + [...] | + + + | Blood | [facility], CORE [address] | | | [place] [address] | + + + + + | [...] Laboratory | + + + | | [facility] VOICE RECOGNITION | + + + [...] | + + + | Blood | [facility], CORE [address] | | | [place] [address] | + + + + + | [...] | + + + | Blood | [facility], [facility] [address] | | | [place] [address] | + + + + + | [...] | | ------ CBC (HEMOGRAM) | | ONLY[[id number]] Abnormal Final | | result Please view [...] | >60 | >60 mL/min | | [place] | | | + + + + | EGFR NON | >60 | >60 mL/min | | -[place] | | | + + + + [...] | + + + | Blood | [facility], CORE [address] | | | [place] [address] | + + + + + | [...] | + + + | Blood | [facility], CORE [address] | | | [place] [address] | + + + X-RAY ABD LTD FEEDING TUBE EVAL (09/10/2017 12:44 PM) + + + | Specimen | Performing Laboratory | + + + | | [facility] VOICE RECOGNITION 2 | + + [...] Note | + + | 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, Daily Aisle Res In Interface - 09/10/2017 2:31 PM [...] Laboratory | + + + | | [facility] VOICE RECOGNITION | + + + + + | Narrative | + + | STUDY: VT CHEST 1 [...] | + + + | Blood | [facility], CORE [address] | | | [place] [address] | + + + AMYLASE, PLASMA (09/10/2017 5:08 AM) + +-------+ + | Component | Value | Ref Range | + +-------+ + | AMYLASE,PLASMA | 58 | 25 - 115 U/L | + +-------+ + + + + | Specimen | Performing Laboratory | + + + | Blood | [facility], CORE [address] | | | [place] [address] | + + + CBC (HEMOGRAM) ONLY [...] | + + + | Blood | [facility], CORE [address] | | | [place] [address] | + + + + + | [...] | + + + | Blood | [facility], CORE [address] | | | [place] [address] | + + + + + | [...] | | ------ CBC (HEMOGRAM) | | ONLY[[id number]] Abnormal Final | | result Please view [...] | >60 | >60 mL/min | | [place] | | | + + + + | EGFR NON | >60 | >60 mL/min | | -[place] | | | + + + + [...] + + + | Blood | [facility], CORE [address] [place] [address] | | | [place] [address] | + + + + + | [...] Laboratory | + + + | | [facility] [address] [place] [address] | | | [place] [address] | + + + X-RAY ABD LTD FEEDING TUBE EVAL PORTABLE (09/09/2017 10:15 PM) + + + | Specimen | Performing Laboratory | + + + | | [facility] VOICE RECOGNITION 2 | + + [...] Note | + + | 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, Vitasol In Interface - 09/10/2017 11:11 AM PDT [...] + + + | | [facility], POINT OF CARE TESTS [address] | | | [place] [address] | + + + MAGNESIUM, PLASMA (09/09/2017 3:50 AM) + +-------+ + | Component | Value | Ref Range | + +-------+ + | MAGNESIUM,PLASMA | 2.0 | 1.6 - 2.6 mg/dL | + +-------+ + + + + | Specimen | Performing Laboratory | + + + | Blood | [facility], CORE [address] | | | [place] [address] | + + + + + | [...] | + + + | Blood | [facility], CORE [address] | | | [place] [address] | + + + + + | [...] | | ------ CBC (HEMOGRAM) | | ONLY[[id number]] Abnormal Final | | result Please view [...] | >60 | >60 mL/min | | [place] | | | + + + + | EGFR NON | >60 | >60 mL/min | | -[place] | | | + + + + [...] | + + + | Blood | [facility], CORE [address] | | | [place] [address] | + + + + + | [...] | + + + | Blood | [facility], CORE [address] [address] | | | [place] [address] | + + + + + | [...] | >60 | >60 mL/min | | [place] | | | + + + + | EGFR NON | >60 | >60 mL/min | | -[place] | | | + + + + [...] | + + + | Blood | [facility], CORE [address] | | | [place] [address] | + + + + + | [...] | | ------ CBC (HEMOGRAM) | | ONLY[[id number]] Abnormal Final | | result Please view [...] | + + + | Blood | [facility], CORE [address] [place] [address] | | | [place] [address] | + + + LIVER SET (AST,ALT,BILI [...] | + + + | Blood | [facility], CORE [address] | | | [place] [address] | + + + X-RAY ABD LTD FEEDING TUBE EVAL (09/08/2017 4:38 AM) + + + | Specimen | Performing Laboratory | + + + | | [facility] VOICE RECOGNITION | + + + [...] Laboratory | + + + | | [facility] [address] [place] [address] | | | [place] [address] | + + + X-RAY PORTABLE CHEST 1 VIEW (09/07/2017 6:12 AM) + + + | Specimen | Performing Laboratory | + + + | | [facility] VOICE RECOGNITION | + + + + + | Narrative | + + | EXAM: VT CHEST 1 [...] | + + + | Blood | [facility], CORE [address] | | | [place] [address] | + + + + + | [...] | >60 | >60 mL/min | | [place] | | | + + + + | EGFR NON | >60 | >60 mL/min | | -[place] | | | + + + + [...] | + + + | Blood | [facility], CORE [address] | | | [place] [address] | + + + + + | [...] + + + | Blood | [facility], [facility] [address] [place] [address] | | | [place] [address] | + + + + + | [...] | | ------ CBC (HEMOGRAM) | | ONLY[[id number]] Abnormal Final | | result Please view [...] Note | + + | 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, Daily Aisle Res In Interface - 09/07/2017 10:46 AM [...] Laboratory | + + + | | [facility] VOICE RECOGNITION | + + + [...] Laboratory | + + + | | [facility] [address] [place] [address] | | | [place] [address] | + + + PROCEDURE NOTE (09/06/2017 [...] on the 1st attempt. Midline lot number [id number]; there was positive blood | | return. [...] | >60 | >60 mL/min | | [place] | | | + + + + | EGFR NON | >60 | >60 mL/min | | -[place] | | | + + + + [...] | + + + | Blood | [facility], CORE [address] | | | [place] [address] | + + + + + | [...] | + + + | Blood | [facility], CORE [address] | | | [place] [address] | + + + + + | [...] | Narrative | + + | EXAM: VT CHEST 1 [...] Note | + + | 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, Vitasol In Interface - 09/05/2017 10:16 AM PDT [...] | + + + | Blood | [facility], CORE [address] | | | [place] [address] | + + + MAGNESIUM, PLASMA (09/05/2017 3:54 AM) + +-------+ + | Component | Value | Ref Range | + +-------+ + | MAGNESIUM,PLASMA | 1.8 | 1.6 - 2.6 mg/dL | + +-------+ + + + + | Specimen | Performing Laboratory | + + + | Blood | [facility], CORE [address] | | | [place] [address] | + + + + + | [...] | | ------ CBC (HEMOGRAM) | | ONLY[[id number]] Abnormal Final | | result Please view [...] | >60 | >60 mL/min | | [place] | | | + + + + | EGFR NON | >60 | >60 mL/min | | -[place] | | | + + + + [...] | + + + | Blood | [facility], CORE [address] | | | [place] [address] | + + + + + | [...] | >60 | >60 mL/min | | [place] | | | + + + + | EGFR NON | >60 | >60 mL/min | | -[place] | | | + + + + [...] | + + + | Blood | [facility], [facility] [address] | | | [place] [address] | + + + + + | [...] tomorrow morning. CB Henson Pager / ID: [phone] | + + CULTURE, SPUTUM (09/04/2017 1:17 PM) + + + | Specimen | Performing Laboratory | + + + | Sputum - | [facility] [address] [place], [place] | | Endotracheal tube | [id number] | | tip | | + + [...] + | Urine - Catheter - | [facility], CORE [address] | | indwelling | [place] [address] | + + + TITO COLE (09/04/2017 [...] + | SPECIFIC GRAVITY | 1.011Comment: Specific [place] performed by | 1.005 - 1.030 | | | refractometry | | + + + + + + + | Specimen | Performing Laboratory | + + + | Urine - Catheter - | [facility], CORE [address] | | indwelling | [place] [address] | + + + CULTURE, BLOOD BACTI [...] + + | Blood - Arterial | [facility], CORE [address] | | line | [facility] [place] [address] | + + + CULTURE, BLOOD BACTI & YEAST [facility] (09/04/2017 1:16 PM) + + + + | Component | Value | Ref Range | + + + + | CULTURE RESULT | Final Report:No Bacteria or Yeast isolated | | | | at 5 days. | | + + + + + + + | Specimen | Performing Laboratory | + + + | Blood - Peripheral | [facility], CORE [address] | | | [place] [address] | + + + CULTURE, BLOOD BACTI [...] ------ CULTURE, BLOOD | | BACTI & Y...[[id number]] Final | | result Please view results [...] ------ CULTURE, BLOOD | | BACTI & Y...[[id number]] Final | | result Please view results [...] | | [facility] [address] | | | [place] [address] | + + + X-RAY PORTABLE CHEST 1 VIEW (09/04/2017 7:04 AM) + + + | Specimen | Performing Laboratory | + + + | | [facility] VOICE RECOGNITION | + + + + + | Narrative | + + | EXAM: VT CHEST 1 VIEW HISTORY: Hypoxia. Intubated. COMPARISON: [...] | + + + | Blood | [facility], CORE [address] [place] [address] | | | [place] [address] | + + + CBC (HEMOGRAM) ONLY [...] | + + + | Blood | [facility], CORE [address] | | | [place], [place] [address] | + + + RENAL FUNCTION SET [...] | >60 | >60 mL/min | | [place] | | | + + + + | EGFR NON | >60 | >60 mL/min | | -[place] | | | + + + + [...] | + + + | Blood | [facility], CORE [address] | | | [place] [address] | + + + + + | [...] | + + + | Blood | [facility], CORE [address] | | | [place] [address] | + + + + + | [...] | | ------ CBC (HEMOGRAM) | | ONLY[[id number]] Abnormal Final | | result Please view [...] [address] | | | [place] [address] | + + + CAPILLARY BLOOD GLUCOSE (NO CHG), POC (09/04/2017 12:17 AM) + +-------+ + | Component | Value | Ref Range | + +-------+ + | BLOOD GLUCOSE, POC | 72 | 70 - 99 mg/dL | + +-------+ + + + + | Specimen | Performing Laboratory | + + + | | [facility], POINT OF CARE TESTS [address] | | | [place] [address] | + + + CAPILLARY BLOOD GLUCOSE [...] [address] | | | [place] [address] | + + + CAPILLARY BLOOD GLUCOSE [...] [address] | | | [place] [address] | + + + [facility] VENOUS DUPLEX LOWER EXTREMITY BILAT COMP (09/03/2017 9:51 AM) + + + | Specimen | Performing Laboratory | + + + | | [facility] US | + + + + [...] Note | + + | 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, Daily Aisle Res In Interface - 09/03/2017 10:27 AM [...] + + + | Sputum - | [facility] [address] [place], [place] | | Expectorated | [phone] | + + + + + | [...] | + + + | Blood | [facility], CORE [address] | | | [place] [address] | + + + X-RAY ABD LTD FEEDING TUBE EVAL (09/03/2017 4:32 AM) + + + | Specimen | Performing Laboratory | + + + | | [facility] VOICE RECOGNITION | + + + [...] + + + | Sputum - | [facility] [address] [place], [place] | | Expectorated | [address] | + + + + + | [...] | + + + | Blood | [facility], CORE [address] | | | [place] [address] | + + + CBC (HEMOGRAM) ONLY [...] | + + + | Blood | [facility], CORE [address] | | | [place] [address] | + + + RENAL FUNCTION SET [...] | >60 | >60 mL/min | | [place] | | | + + + + | EGFR NON | >60 | >60 mL/min | | -[place] | | | + + + + [...] | + + + | Blood | [facility] [address] | | | [place] [address] | + + + + + | [...] + + + | Blood | [facility], CORE [address] | | | [place] [address] | + + + + + | [...] | | ------ CBC (HEMOGRAM) | | ONLY[[id number]] Abnormal Final | | result Please view results for these tests on the | | individual orders. | + + OPERATION RECORD (09/02/2017 6:53 PM) + + | Procedure Note | + + | Fidelina Shields MD - 09/02/2017 6:53 PM PDT Date of Service: 09/02/2017 | | Attending Surgeon: Fidelina Shields MD Merchandise Adjustment Clerk(s): | | Ajay Garcia MD, resident. Preoperative [...] 09/02/2017 18:15:29DT: 09/02/2017 18:53:52Job #: | | [id number] to federal Medicare and Medicaid regulations I was present for | | the entire procedure.Fidelina Shields MDAssistanbrice ProfessorDepartment of SurgeryOffice: | | [phone]: [id number] has been electronically signed by Fidelina Shields MD, | | 09/03/2017 at 9:11 AM. | | | | | |Fidelina Shields MD | |Machining Department Supervisor | |Department of Surgery | |Office: [phone] | |Pager: [phone] | | | |This has been electronically [...] | + + + | Blood | [facility], CORE [address] [place] [address] | | | [place], [place] [address] | + + + BLOOD GASES, ARTERIAL [...] | + + + | Blood | [facility], CORE [address] | | | [place] [address] | + + + CULTURE, AFB (ALL SPEC TYPES EXCEPT BLOOD) (09/02/2017 5:10 PM) + + + | Specimen | Performing Laboratory | + + + | Sputum - | [facility] [id number] [place] [address] | | Expectorated | [phone] | + + + + + | [...] | + + + | Blood | [facility] [address] | | | [place] [address] | + + + + + | [...] | >60 | >60 mL/min | | [place] | | | + + + + | EGFR NON | >60 | >60 mL/min | | -[place] | | | + + + + [...] | + + + | Blood | [facility], CORE [address] | | | [place] [address] | + + + + + | [...] Note | + + | 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, Daily Aisle Res In Interface - 09/02/2017 4:25 PM [...] NOTE Procedure | | Date: 09/02/2017 Author: AAJY GARCIA MD Attending Physician: Fidelina | | [...] INGRID Zhang | | Yolanda Garcia Surgery [id number] Pursuant to federal Medicare and Medicaid regulations I | | was present for the entire procedure. Fidelina Shields MD Merchandise Adjustment Clerk | | Professor Department of Surgery Office: [phone] Pager: [phone] This has been | | electronically signed [...] | + + + | Blood | [facility], CORE [address] [address] | | | [place] [address] | + + + INR (09/02/2017 9:39 AM) + + + + | Component | Value | Ref Range | + + + + | INR | 1.26 (H) | 0.90 - 1.20 INR | + + + + + + + | Specimen | Performing Laboratory | + + + | Blood | [facility], CORE [address] | | | [place] [address] | + + + + + | [...] | | Attending Surgeon: Fidelina Shields MD Merchandise Adjustment Clerk(s): Haim Peralta MD. | | Ajay Garcia [...] 09/02/2017 06:17:53DT: 09/02/2017 | | 06:51:37Job #: [id number] to federal Medicare and Medicaid regulations I | | was present for the entire procedure.Fidelina Tenorio ProfessorDepartment of | | SurgeryOffice: [phone]: [id number] has been electronically signed by Fidelina Shields MD, 09/02/2017 at 10:40 AM. | | | | | |Pursuant to federal Medicare and Medicaid regulations I was present for the entire procedur e. | | | | | | | |Fidelina Shields MD | |Machining Department Supervisor | |Department of Surgery | |Office: [phone] | |Pager: [phone] | | | |This has been electronically [...] | + + + | Blood | [facility], CORE [address] [address] | | | [place] [address] | + + + HEMATOCRIT (09/02/2017 5:16 AM) + + + + | Component | Value | Ref Range | + + + + | HEMATOCRIT | 34.0 (L) | 41.0 - 53.0 % | + + + + + + + | Specimen | Performing Laboratory | + + + | Blood | [facility], CORE [address] | | | [place], [place] [address] | + + + PRODUCT - RED CELLS LEUKOREDUCED (09/02/2017 2:53 AM) + + + + | Component | Value | Ref Range | + + + + | PRODUCT DESCRIPTION | -1 RED BLOOD CELL ADENINE-SALINE ADDED | | | | LEUKOCYTE | | + + + + | PRODUCT UNIT # | [id number] | | + + + + | UNIT ABO | O | | + + + + | UNIT RH | POS | | + + + + | STATUS OF UNIT | Presumed Transfused | | + + + + | EXPIRATION DATE | [id number] | | + + + + | BLOOD TYPE BARCODE | 5100 | | + + + + | BLOOD PRODUCT CODE | [id number] | | + + + + + + + | Specimen | Performing Laboratory | + + + | | [facility], TRANSF[facility]ION MEDICINE [address] | | | [place] [address] | + + + CT PELVIS WO IV CONTRAST (09/02/2017 1:45 AM) + + + | Specimen | Performing Laboratory | + + + | | [facility] VOICE RECOGNITION | + + + [...] | + + + | Blood | [facility], CORE [address] [place] [address] | | | [place] [address] | + + + RENAL FUNCTION SET [...] | >60 | >60 mL/min | | [place] | | | + + + + | EGFR NON | >60 | >60 mL/min | | -[place] | | | + + + + [...] | + + + | Blood | [facility], CORE [address] [address] | | | [place], [place] [address] | + + + + + | [...] | + + + | Blood | [facility], CORE [address] | | | [place] [address] | + + + + + | [...] | | ------ CBC (HEMOGRAM) | | ONLY[[id number]] Abnormal Final | | result Please view [...] | | (http://www.cdc.gov/mmwr/preview/mmwrhtml/r | | | | [id number].htm), for information concerning | | | | test performance in low-prevalence | | | | populations and use in occupational | | | | screening. | | + + + + | NIL | 0.05Comment: Performed by [facility] | IU/mL | | | Laboratories, | | | | [address], | | | | [place] [address] | | | | [phone] | | | | [email or web address], Gui Ervin MD - | | | | Lab. Director | | + + + + | TB AG-NIL | 0.26 | 0.00 - 0.34 IU/mL | + + + + | MITOGEN-NIL | 9.35 | IU/mL | + + + + + + + | Specimen | Performing Laboratory | + + + | Blood | [facility] [address] [place], [place] | | | [address] | + + + LACTATE (09/01/2017 8:18 PM) + +-------+ + | Component | Value | Ref Range | + +-------+ + | LACTATE | 1.6 | mmol/L | + +-------+ + + + + | Specimen | Performing Laboratory | + + + | Blood | [facility], [address] | | | [place] [address] | + + + + + | [...] | + + + | Blood | [facility], [address] | | | [place] [address] | + + + X-RAY KNEE 2 VIEWS LEFT (09/01/2017 7:48 PM) + + + | Specimen | Performing Laboratory | + + + | | [facility]OGNITION | + + + [...] Note | + + | 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, Daily Aisle Res In Interface - 09/02/2017 8:55 AM [...] | Narrative | + + | EXAM: [place] CHEST 1 [...] + + + | Blood | [facility], [address] | | | [place] [address] | + + + HEMATOCRIT (09/01/2017 5:43 PM) + + + + | Component | Value | Ref Range | + + + + | HEMATOCRIT | 34.1 (L) | 41.0 - 53.0 % | + + + + + + + | Specimen | Performing Laboratory | + + + | Blood | [facility], [address] | | | [place] [address] | + + + PRODUCT - PLATELET PHERESIS LEUKOREDUCED (09/01/2017 4:42 PM) + + + + | Component | Value | Ref Range | + + + + | PRODUCT DESCRIPTION | PLATELETS PHERESIS LEUKOCYTE REDUCED | | + + + + | PRODUCT UNIT # | [id number] | | + + + + | UNIT ABO | O | | + + + + | UNIT RH | POS | | + + + + | STATUS OF UNIT | Presumed Transfused | | + + + + | EXPIRATION DATE | [id number] | | + + + + | BLOOD TYPE BARCODE | | | + + + + | BLOOD PRODUCT CODE | [id number] | | + + + + + + + | Specimen | Performing Laboratory | + + + | | [facility], TRANSFUSION MEDICINE [address] [place] [address] | | | [place] [address] | + + + BLOOD GASES, ARTERIAL [...] | + + + | Blood | [facility], CORE [address] | | | [place] [address] | + + + LACTATE (09/01/2017 4:19 PM) + +-------+ + | Component | Value | Ref Range | + +-------+ + | LACTATE | 1.6 | mmol/L | + +-------+ + + + + | Specimen | Performing Laboratory | + + + | Blood | [facility], CORE [address] [facility] [address] | | | [place] [address] | + + + + + | [...] | + + + | Blood | [facility], CORE [address] [facility] | | | [place] [address] | + + + COMPLETE METABOLIC SET [...] | >60 | >60 mL/min | | COLOMBIAN | | | + + + + | EGFR NON | >60 | >60 mL/min | | -COLOMBIAN | | | + + + + [...] | + + + | Blood | [facility], [place] [address] | | | [place] [address] | + + + + + | [...] | | ------ CBC (HEMOGRAM) | | ONLY[[id number]] Abnormal Final | | result Please view [...] | + + + | Blood | [facility], CORE [address] | | | [place] [address] | + + + + + | [...] + + + | Blood | [facility], CORE [address] [facility] [address] | | | [place] [address] | + + + + + | Narrative | + + | Cap came off in bag before received. Sample rejected due to air contamination. | | Crediting patient. | + + IR EMBOLIZATION OTHER (09/01/2017 2:06 PM) + + + | Specimen | Performing Laboratory | + + + | | [facility] VOICE RECOGNITION | + + + [...] micropuncture access set was exchanged for a Holvi | | wire. Under fluoroscopic guidance, a 5 Fr flush catheter was used to evaluate the | | distal abdominal aorta and pelvic vasculature. A wire and catheter were then used to | | select the left common and internal iliac arteries from the right ACCOUNTING DIRECTOR approach. DSA | | was performed from [...] Hubbard MD, PhDIR Fellow: | | George Sahh Fellow: Trey Thomas MDPreoperative diagnosis: pelvic trauma, [...] | | iliac arteries from the right ACCOUNTING DIRECTOR approach. DSA was performed from the left [...] and internal iliac arteries from the right ACCOUNTING DIRECTOR approach. DSA was performed from the left [...] [address] | | | [place] [address] | + + + EXPLORATORY LAPAROTOMY (09/01/2017 12:31 PM) + + | Narrative | + + | Fidelina Shields MD 09/01/2017 12:42 PM BRIEF OPERATIVE NOTE: | | Date: 09/01/2017 Author: Fidelina Shields MD Attending Physician: | | Fidelina Shields MD Merchandise Adjustment Clerk(s): Haim Peralta MD, Vicente Garcia MD, Glo [...] the case. | | Fidelina Shields MD Machining Department Supervisor Division of Trauma, Critical Care and | | Acute Care Surgery Office: [phone] Pager: [phone] | + + ABG-FULL ABL, POC (09/01/2017 [...] | + + + | Blood | [facility] POINT OF CARE TESTS [address] | | | [place] [address] | + + + CREATININE, BODY FLUID (09/01/2017 11:52 AM) + +-------+ + | Component | Value | Ref Range | + +-------+ + | CREATININE BODY | 0.60 | mg/dL | | FLUID | | | + +-------+ + + + + | Specimen | Performing Laboratory | + + + | Fluid - Abdominal | [facility], CORE [address] | | | [place] [address] | + + + + + | [...] | + + + | Blood | [facility], POINT OF CARE TESTS [address] | | | [place] [address] | + + + PRODUCT - PLATELET PHERESIS LEUKOREDUCED (09/01/2017 9:56 AM) + + + + | Component | Value | Ref Range | + + + + | PRODUCT DESCRIPTION | PLATELETS PHERESIS LEUKOCYTES REDUCED | | + + + + | PRODUCT UNIT # | [id number] | | + + + + | UNIT ABO | A | | + + + + | UNIT RH | POS | | + + + + | STATUS OF UNIT | Returned to Blood Bank | | + + + + | EXPIRATION DATE | [id number] | | + + + + | BLOOD TYPE BARCODE | 6200 | | + + + + | BLOOD PRODUCT CODE | [id number] | | + + + + + + + | Specimen | Performing Laboratory | + + + | | [facility], TRANSFUSION MEDICINE [address] | | | [place] [address] | + + + PRODUCT - FRESH FROZEN PLASMA (09/01/2017 9:53 AM) + + + + | Component | Value | Ref Range | + + + + | PRODUCT DESCRIPTION | LIQUID PLASMA, IRRADIATED | | + + + + | PRODUCT UNIT # | [id number] | | + + + + | UNIT ABO | A | | + + + + | UNIT RH | POS | | + + + + | STATUS OF UNIT | Returned to Blood Bank | | + + + + | EXPIRATION DATE | [id number] | | + + + + | BLOOD TYPE BARCODE | 6200 | | + + + + | BLOOD PRODUCT CODE | [id number] | | + + + + + + + | Specimen | Performing Laboratory | + + + | | [facility], TRANSFUSION MEDICINE [address] | | | [place] [address] | + + + PRODUCT - FRESH FROZEN PLASMA (09/01/2017 9:53 AM) + + + + | Component | Value | Ref Range | + + + + | PRODUCT DESCRIPTION | LIQUID PLASMA, IRRADIATED | | + + + + | PRODUCT UNIT # | [id number] | | + + + + | UNIT ABO | A | | + + + + | UNIT RH | POS | | + + + + | STATUS OF UNIT | Returned to Blood Bank | | + + + + | EXPIRATION DATE | [id number] | | + + + + | BLOOD TYPE BARCODE | 6200 | | + + + + | BLOOD PRODUCT CODE | [id number] | | + + + + + + + | Specimen | Performing Laboratory | + + + | | [facility], TRANSFUSION MEDICINE [address] | | | [place] [address] | + + + PRODUCT - RED CELLS LEUKOREDUCED (09/01/2017 9:49 AM) + + + + | Component | Value | Ref Range | + + + + | PRODUCT DESCRIPTION | -3 RED BLOOD CELLS ADENINE-SALINE ADDED | | | | LEUKOCY | | + + + + | PRODUCT UNIT # | [id number] | | + + + + | UNIT ABO | O | | + + + + | UNIT RH | POS | | + + + + | STATUS OF UNIT | Returned to Blood Bank | | + + + + | EXPIRATION DATE | [id number] | | + + + + | BLOOD TYPE BARCODE | 5100 | | + + + + | BLOOD PRODUCT CODE | [id number] | | + + + + + + + | Specimen | Performing Laboratory | + + + | | [facility], TRANSFUSION MEDICINE [address] [facility] | | | [place] [address] | + + + PRODUCT - RED CELLS LEUKOREDUCED (09/01/2017 9:49 AM) + + + + | Component | Value | Ref Range | + + + + | PRODUCT DESCRIPTION | -3 RED BLOOD CELLS ADENINE-SALINE ADDED | | | | LEUKOCY | | + + + + | PRODUCT UNIT # | [id number] | | + + + + | UNIT ABO | O | | + + + + | UNIT RH | POS | | + + + + | STATUS OF UNIT | Returned to Blood Bank | | + + + + | EXPIRATION DATE | [id number] | | + + + + | BLOOD TYPE BARCODE | 5100 | | + + + + | BLOOD PRODUCT CODE | [id number] | | + + + + + + + | Specimen | Performing Laboratory | + + + | | [facility], TRANSFUSION MEDICINE [address] [facility] | | | [place] [address] | + + + PRODUCT - RED CELLS LEUKOREDUCED (09/01/2017 9:49 AM) + + + + | Component | Value | Ref Range | + + + + | PRODUCT DESCRIPTION | -1 RED BLOOD CELL ADENINE-SALINE ADDED | | | | LEUKOCYTE | | + + + + | PRODUCT UNIT # | [id number] | | + + + + | UNIT ABO | O | | + + + + | UNIT RH | POS | | + + + + | STATUS OF UNIT | Returned to Blood Bank | | + + + + | EXPIRATION DATE | [id number] | | + + + + | BLOOD TYPE BARCODE | 5100 | | + + + + | BLOOD PRODUCT CODE | [id number] | | + + + + + + + | Specimen | Performing Laboratory | + + + | | [facility], TRANSFUSION MEDICINE [address] [place] [address] | | | [place] [address] | + + + PRODUCT - RED CELLS LEUKOREDUCED (09/01/2017 9:49 AM) + + + + | Component | Value | Ref Range | + + + + | PRODUCT DESCRIPTION | -1 RED BLOOD CELL ADENINE-SALINE ADDED | | | | LEUKOCYTE | | + + + + | PRODUCT UNIT # | [id number] | | + + + + | UNIT ABO | O | | + + + + | UNIT RH | POS | | + + + + | STATUS OF UNIT | Returned to Blood Bank | | + + + + | EXPIRATION DATE | [id number] | | + + + + | BLOOD TYPE BARCODE | 5100 | | + + + + | BLOOD PRODUCT CODE | [id number] | | + + + + + + + | Specimen | Performing Laboratory | + + + | | [facility], TRANSFUSION MEDICINE [address] [facility] | | | [place] [address] | + + + PRODUCT - RED CELLS LEUKOREDUCED (09/01/2017 9:49 AM) + + + + | Component | Value | Ref Range | + + + + | PRODUCT DESCRIPTION | -1 RED BLOOD CELL ADENINE-SALINE ADDED | | | | LEUKOCYTE | | + + + + | PRODUCT UNIT # | [id number] | | + + + + | UNIT ABO | O | | + + + + | UNIT RH | POS | | + + + + | STATUS OF UNIT | Returned to Blood Bank | | + + + + | EXPIRATION DATE | [id number] | | + + + + | BLOOD TYPE BARCODE | 5100 | | + + + + | BLOOD PRODUCT CODE | [id number] | | + + + + + + + | Specimen | Performing Laboratory | + + + | | [facility], TRANSFUSION MEDICINE [address] [facility] | | | [place] [address] | + + + PRODUCT - RED CELLS LEUKOREDUCED (09/01/2017 9:49 AM) + + + + | Component | Value | Ref Range | + + + + | PRODUCT DESCRIPTION | -1 RED BLOOD CELL ADENINE-SALINE ADDED | | | | LEUKOCYTE | | + + + + | PRODUCT UNIT # | [id number] | | + + + + | UNIT ABO | O | | + + + + | UNIT RH | POS | | + + + + | STATUS OF UNIT | Returned to Blood Bank | | + + + + | EXPIRATION DATE | [id number] | | + + + + | BLOOD TYPE BARCODE | 5100 | | + + + + | BLOOD PRODUCT CODE | [id number] | | + + + + + + + | Specimen | Performing Laboratory | + + + | | [facility], TRANSFUSION MEDICINE [address] [place] [address] | | | [place] [address] | + + + PRODUCT - FRESH FROZEN PLASMA (09/01/2017 9:46 AM) + + + + | Component | Value | Ref Range | + + + + | PRODUCT DESCRIPTION | PLASMA THAWED | | + + + + | PRODUCT UNIT # | [id number] | | + + + + | UNIT ABO | B | | + + + + | UNIT RH | POS | | + + + + | STATUS OF UNIT | Returned to Blood Bank | | + + + + | EXPIRATION DATE | [id number] | | + + + + | BLOOD TYPE BARCODE | 7300 | | + + + + | BLOOD PRODUCT CODE | [id number] | | + + + + + + + | Specimen | Performing Laboratory | + + + | | [facility], TRANSFUSION MEDICINE [address] [facility] | | | [place] [address] | + + + PRODUCT - FRESH FROZEN PLASMA (09/01/2017 9:46 AM) + + + + | Component | Value | Ref Range | + + + + | PRODUCT DESCRIPTION | PLASMA THAWED | | + + + + | PRODUCT UNIT # | [id number] | | + + + + | UNIT ABO | B | | + + + + | UNIT RH | POS | | + + + + | STATUS OF UNIT | Returned to Blood Bank | | + + + + | EXPIRATION DATE | [id number] | | + + + + | BLOOD TYPE BARCODE | 7300 | | + + + + | BLOOD PRODUCT CODE | [id number] | | + + + + + + + | Specimen | Performing Laboratory | + + + | | [facility], TRANSFUSION MEDICINE [address] | | | [place] [address] | + + + PRODUCT - FRESH FROZEN PLASMA (09/01/2017 9:46 AM) + + + + | Component | Value | Ref Range | + + + + | PRODUCT DESCRIPTION | LIQUID PLASMA, IRRADIATED | | + + + + | PRODUCT UNIT # | [id number] | | + + + + | UNIT ABO | A | | + + + + | UNIT RH | POS | | + + + + | STATUS OF UNIT | Returned to Blood Bank | | + + + + | EXPIRATION DATE | [id number] | | + + + + | BLOOD TYPE BARCODE | 6200 | | + + + + | BLOOD PRODUCT CODE | [id number] | | + + + + + + + | Specimen | Performing Laboratory | + + + | | [facility], TRANSFUSION MEDICINE [address] | | | [place] [address] | + + + PRODUCT - FRESH FROZEN PLASMA (09/01/2017 9:46 AM) + + + + | Component | Value | Ref Range | + + + + | PRODUCT DESCRIPTION | LIQUID PLASMA, IRRADIATED | | + + + + | PRODUCT UNIT # | [id number] | | + + + + | UNIT ABO | A | | + + + + | UNIT RH | POS | | + + + + | STATUS OF UNIT | Returned to Blood Bank | | + + + + | EXPIRATION DATE | [id number] | | + + + + | BLOOD TYPE BARCODE | 6200 | | + + + + | BLOOD PRODUCT CODE | [id number] | | + + + + + + + | Specimen | Performing Laboratory | + + + | | [facility], TRANSFUSION MEDICINE [address] | | | [place] [address] | + + + PRODUCT - FRESH FROZEN PLASMA (09/01/2017 9:46 AM) + + + + | Component | Value | Ref Range | + + + + | PRODUCT DESCRIPTION | LIQUID PLASMA, IRRADIATED | | + + + + | PRODUCT UNIT # | [id number] | | + + + + | UNIT ABO | A | | + + + + | UNIT RH | POS | | + + + + | STATUS OF UNIT | Returned to Blood Bank | | + + + + | EXPIRATION DATE | [id number] | | + + + + | BLOOD TYPE BARCODE | 6200 | | + + + + | BLOOD PRODUCT CODE | [id number] | | + + + + + + + | Specimen | Performing Laboratory | + + + | | [facility], TRANSFUSION MEDICINE [address] | | | [place] [address] | + + + PRODUCT - FRESH FROZEN PLASMA (09/01/2017 9:46 AM) + + + + | Component | Value | Ref Range | + + + + | PRODUCT DESCRIPTION | LIQUID PLASMA, IRRADIATED | | + + + + | PRODUCT UNIT # | [id number] | | + + + + | UNIT ABO | A | | + + + + | UNIT RH | POS | | + + + + | STATUS OF UNIT | Returned to Blood Bank | | + + + + | EXPIRATION DATE | [id number] | | + + + + | BLOOD TYPE BARCODE | 6200 | | + + + + | BLOOD PRODUCT CODE | [id number] | | + + + + + + + | Specimen | Performing Laboratory | + + + | | [facility], TRANSFUSION MEDICINE [address] | | | [place] [address] | + + + PRODUCT - PLATELET PHERESIS LEUKOREDUCED (09/01/2017 9:43 AM) + + + + | Component | Value | Ref Range | + + + + | PRODUCT DESCRIPTION | PLATELETS PHERESIS LEUKOCYTE REDUCED | | + + + + | PRODUCT UNIT # | [id number] | | + + + + | UNIT ABO | A | | + + + + | UNIT RH | POS | | + + + + | STATUS OF UNIT | Presumed Transfused | | + + + + | EXPIRATION DATE | [id number] | | + + + + | BLOOD TYPE BARCODE | 6200 | | + + + + | BLOOD PRODUCT CODE | [id number] | | + + + + + + + | Specimen | Performing Laboratory | + + + | | [facility], TRANSFUSION MEDICINE [address] [place] [address] | | | [place] [address] | + + + PRODUCT - FRESH FROZEN PLASMA (09/01/2017 9:35 AM) + + + + | Component | Value | Ref Range | + + + + | PRODUCT DESCRIPTION | LIQUID PLASMA, IRRADIATED | | + + + + | PRODUCT UNIT # | [id number] | | + + + + | UNIT ABO | A | | + + + + | UNIT RH | NEG | | + + + + | STATUS OF UNIT | Presumed Transfused | | + + + + | EXPIRATION DATE | [id number] | | + + + + | BLOOD TYPE BARCODE | | | + + + + | BLOOD PRODUCT CODE | [id number] | | + + + + + + + | Specimen | Performing Laboratory | + + + | | [facility], TRANSFUSION MEDICINE [address] [place] [address] | | | [place] [address] | + + + PRODUCT - FRESH FROZEN PLASMA (09/01/2017 9:35 AM) + + + + | Component | Value | Ref Range | + + + + | PRODUCT DESCRIPTION | LIQUID PLASMA, IRRADIATED | | + + + + | PRODUCT UNIT # | [id number] | | + + + + | UNIT ABO | A | | + + + + | UNIT RH | NEG | | + + + + | STATUS OF UNIT | Returned to Blood Bank | | + + + + | EXPIRATION DATE | [id number] | | + + + + | BLOOD TYPE BARCODE | 0600 | | + + + + | BLOOD PRODUCT CODE | [id number] | | + + + + + + + | Specimen | Performing Laboratory | + + + | | [facility], TRANSFUSION MEDICINE [address] [place] [address] | | | [place] [address] | + + + PRODUCT - FRESH FROZEN PLASMA (09/01/2017 9:35 AM) + + + + | Component | Value | Ref Range | + + + + | PRODUCT DESCRIPTION | LIQUID PLASMA, IRRADIATED | | + + + + | PRODUCT UNIT # | [id number] | | + + + + | UNIT ABO | A | | + + + + | UNIT RH | POS | | + + + + | STATUS OF UNIT | Returned to Blood Bank | | + + + + | EXPIRATION DATE | [id number] | | + + + + | BLOOD TYPE BARCODE | 6200 | | + + + + | BLOOD PRODUCT CODE | [id number] | | + + + + + + + | Specimen | Performing Laboratory | + + + | | [facility], TRANSFUSION MEDICINE [address] [place] [address] | | | [place] [address] | + + + PRODUCT - FRESH FROZEN PLASMA (09/01/2017 9:35 AM) + + + + | Component | Value | Ref Range | + + + + | PRODUCT DESCRIPTION | LIQUID PLASMA, IRRADIATED | | + + + + | PRODUCT UNIT # | [id number] | | + + + + | UNIT ABO | A | | + + + + | UNIT RH | POS | | + + + + | STATUS OF UNIT | Presumed Transfused | | + + + + | EXPIRATION DATE | [id number] | | + + + + | BLOOD TYPE BARCODE | 6200 | | + + + + | BLOOD PRODUCT CODE | [id number] | | + + + + + + + | Specimen | Performing Laboratory | + + + | | [facility], TRANSFUSION MEDICINE [address] [place] [address] | | | [place] [address] | + + + PRODUCT - RED CELLS LEUKOREDUCED (09/01/2017 9:35 AM) + + + + | Component | Value | Ref Range | + + + + | PRODUCT DESCRIPTION | -1 RED BLOOD CELL ADENINE-SALINE ADDED | | | | LEUKOCYTE | | + + + + | PRODUCT UNIT # | [id number] | | + + + + | UNIT ABO | O | | + + + + | UNIT RH | POS | | + + + + | STATUS OF UNIT | Returned to Blood Bank | | + + + + | EXPIRATION DATE | [id number] | | + + + + | BLOOD TYPE BARCODE | 5100 | | + + + + | BLOOD PRODUCT CODE | [id number] | | + + + + + + + | Specimen | Performing Laboratory | + + + | | [facility], TRANSFUSION MEDICINE [address] | | | [place] [address] | + + + PRODUCT - RED CELLS LEUKOREDUCED (09/01/2017 9:35 AM) + + + + | Component | Value | Ref Range | + + + + | PRODUCT DESCRIPTION | -1 RED BLOOD CELL ADENINE-SALINE ADDED | | | | LEUKOCYTE | | + + + + | PRODUCT UNIT # | [id number] | | + + + + | UNIT ABO | O | | + + + + | UNIT RH | POS | | + + + + | STATUS OF UNIT | Returned to Blood Bank | | + + + + | EXPIRATION DATE | [id number] | | + + + + | BLOOD TYPE BARCODE | 5100 | | + + + + | BLOOD PRODUCT CODE | [id number] | | + + + + + + + | Specimen | Performing Laboratory | + + + | | [facility], TRANSFUSION MEDICINE [address] | | | [place] [address] | + + + PRODUCT - RED CELLS LEUKOREDUCED (09/01/2017 9:35 AM) + + + + | Component | Value | Ref Range | + + + + | PRODUCT DESCRIPTION | -1 RED BLOOD CELL ADENINE-SALINE ADDED | | | | LEUKOCYTE | | + + + + | PRODUCT UNIT # | [id number] | + + + + | UNIT ABO | O | | + + + + | UNIT RH | POS | | + + + + | STATUS OF UNIT | Presumed Transfused | | + + + + | EXPIRATION DATE | [id number] | | + + + + | BLOOD TYPE BARCODE | 5100 | | + + + + | BLOOD PRODUCT CODE | [id number] | | + + + + + + + | Specimen | Performing Laboratory | + + + | | [facility], TRANSFUSION MEDICINE [address] [place] [address] | | | [place] [address] | + + + PRODUCT - RED CELLS LEUKOREDUCED (09/01/2017 9:35 AM) + + + + | Component | Value | Ref Range | + + + + | PRODUCT DESCRIPTION | -1 RED BLOOD CELL ADENINE-SALINE ADDED | | | | LEUKOCYTE | | + + + + | PRODUCT UNIT # | [id number] | | + + + + | UNIT ABO | O | | + + + + | UNIT RH | POS | | + + + + | STATUS OF UNIT | Presumed Transfused | | + + + + | EXPIRATION DATE | [id number] | | + + + + | BLOOD TYPE BARCODE | 5100 | | + + + + | BLOOD PRODUCT CODE | [id number] | | + + + + + + + | Specimen | Performing Laboratory | + + + | | [facility], TRANSFUSION MEDICINE [address] [facility] | | | [place] [address] | + + + PRODUCT - RED CELLS LEUKOREDUCED (09/01/2017 9:35 AM) + + + + | Component | Value | Ref Range | + + + + | PRODUCT DESCRIPTION | -1 RED BLOOD CELL ADENINE-SALINE ADDED | | | | LEUKOCYTE | | + + + + | PRODUCT UNIT # | [id number] | | + + + + | UNIT ABO | O | | + + + + | UNIT RH | POS | | + + + + | STATUS OF UNIT | Returned to Blood Bank | | + + + + | EXPIRATION DATE | [id number] | | + + + + | BLOOD TYPE BARCODE | 5100 | | + + + + | BLOOD PRODUCT CODE | [id number] | | + + + + + + + | Specimen | Performing Laboratory | + + + | | [facility], TRANSFUSION MEDICINE [address] | | | [address] [address] [facility] [place] [address] | + + + PRODUCT - RED CELLS LEUKOREDUCED (09/01/2017 9:35 AM) + + + + | Component | Value | Ref Range | + + + + | PRODUCT DESCRIPTION | -1 RED BLOOD CELL ADENINE-SALINE ADDED | | | | LEUKOCYTE | | + + + + | PRODUCT UNIT # | [id number] | | + + + + | UNIT ABO | O | | + + + + | UNIT RH | POS | | + + + + | STATUS OF UNIT | Presumed Transfused | | + + + + | EXPIRATION DATE | [id number] | | + + + + | BLOOD TYPE BARCODE | 5100 | | + + + + | BLOOD PRODUCT CODE | [id number] | | + + + + + + + | Specimen | Performing Laboratory | + + + | | [facility], TRANSFUSION MEDICINE [address] [place] [address] | | | [place] [address] | + + + CBC (HEMOGRAM) ONLY [...] | + + + | Blood | [facility], CORE [address] [place] [address] | | | [place] [address] | + + + RENAL FUNCTION SET [...] | >60 | >60 mL/min | | COLOMBIAN | | | + + + + | EGFR NON | >60 | >60 mL/min | | -COLOMBIAN | | | + + + + [...] | + + + | Blood | [facility], CORE [address] [facility] | | | [place] [address] | + + + + + | [...] | | ------ CBC (HEMOGRAM) | | ONLY[[id number]] Abnormal Final | | result Please view results for these tests on the | | individual orders. | + + LACTATE (09/01/2017 9:35 AM) + +-------+ + | Component | Value | Ref Range | + +-------+ + | LACTATE | 2.5 | mmol/L | + +-------+ + + + + | Specimen | Performing Laboratory | + + + | Blood | [facility], [address] [facility] [address] | | | [place] [address] | + + + + + | [...] Blood | [facility] [address] | | | [place] [address] | + + + X-RAY PORTABLE CHEST 1 VIEW (09/01/2017 9:18 AM) + + + | Specimen | Performing Laboratory | + + + | | [facility] VOICE RECOGNITION | + + + + + | Narrative | + + | EXAM: VT CHEST 1 [...] Laboratory | + + + | | [facility] | + + + [...] + + | PRODUCT UNIT # | [id number] | | + + + + | UNIT ABO | O | | + + + + | UNIT RH | POS | | + + + + | STATUS OF UNIT | Presumed Transfused | | + + + + | EXPIRATION DATE | [id number] | | + + + + | BLOOD TYPE BARCODE | 5100 | | + + + + | BLOOD PRODUCT CODE | [id number] | | + + + + + + + | Specimen | Performing Laboratory | + + + | | [facility], TRANSF[facility]ION MEDICINE [address] | | | [place] [address] | + + + PRODUCT - RED CELLS LEUKOREDUCED (09/01/2017 9:08 AM) + + + + | Component | Value | Ref Range | + + + + | PRODUCT DESCRIPTION | -1 RED BLOOD CELL ADENINE-SALINE ADDED | | | | LEUKOCYTE | | + + + + | PRODUCT UNIT # | [id number] | | + + + + | UNIT ABO | O | | + + + + | UNIT RH | POS | | + + + + | STATUS OF UNIT | Presumed Transfused | | + + + + | EXPIRATION DATE | [id number] | | + + + + | BLOOD TYPE BARCODE | 5100 | | + + + + | BLOOD PRODUCT CODE | [id number] | | + + + + + + + | Specimen | Performing Laboratory | + + + | | [facility], TRANSFUSION MEDICINE [address] [place] [address] | | | [place] [address] | + + + PRODUCT - RED CELLS LEUKOREDUCED (09/01/2017 9:08 AM) + + + + | Component | Value | Ref Range | + + + + | PRODUCT DESCRIPTION | -1 RED BLOOD CELL ADENINE-SALINE ADDED | | | | LEUKOCYTE | | + + + + | PRODUCT UNIT # | [id number] | | + + + + | UNIT ABO | O | | + + + + | UNIT RH | POS | | + + + + | STATUS OF UNIT | Presumed Transfused | | + + + + | EXPIRATION DATE | [id number] | | + + + + | BLOOD TYPE BARCODE | 5100 | | + + + + | BLOOD PRODUCT CODE | [id number] | | + + + + + + + | Specimen | Performing Laboratory | + + + | | [facility], TRANSFUSION MEDICINE [address] [place] [address] | | | [address] [place] [address] | + + + PRODUCT - RED CELLS LEUKOREDUCED (09/01/2017 9:08 AM) + + + + | Component | Value | Ref Range | + + + + | PRODUCT DESCRIPTION | -1 RED BLOOD CELL ADENINE-SALINE ADDED | | | | LEUKOCYTE | | + + + + | PRODUCT UNIT # | [id number] | | + + + + | UNIT ABO | O | | + + + + | UNIT RH | POS | | + + + + | STATUS OF UNIT | Presumed Transfused | | + + + + | EXPIRATION DATE | [id number] | | + + + + | BLOOD TYPE BARCODE | 5100 | | + + + + | BLOOD PRODUCT CODE | [id number] | | + + + + + + + | Specimen | Performing Laboratory | + + + | | [facility], TRANSFUSION MEDICINE [address] | | | [place] [address] | + + + PRODUCT - FRESH FROZEN PLASMA (09/01/2017 9:08 AM) + + + + | Component | Value | Ref Range | + + + + | PRODUCT DESCRIPTION | PLASMA THAWED | | + + + + | PRODUCT UNIT # | [id number] | | + + + + | UNIT ABO | B | | + + + + | UNIT RH | POS | | + + + + | STATUS OF UNIT | Presumed Transfused | | + + + + | EXPIRATION DATE | [id number] | | + + + + | BLOOD TYPE BARCODE | 7300 | | + + + + | BLOOD PRODUCT CODE | [id number] | | + + + + + + + | Specimen | Performing Laboratory | + + + | | [facility], TRANSFUSION MEDICINE [address] [facility] | | | [place] [address] | + + + PRODUCT - FRESH FROZEN PLASMA (09/01/2017 9:08 AM) + + + + | Component | Value | Ref Range | + + + + | PRODUCT DESCRIPTION | PLASMA THAWED | | + + + + | PRODUCT UNIT # | [id number] | | + + + + | UNIT ABO | B | | + + + + | UNIT RH | POS | | + + + + | STATUS OF UNIT | Presumed Transfused | | + + + + | EXPIRATION DATE | [id number] | | + + + + | BLOOD TYPE BARCODE | 7300 | | + + + + | BLOOD PRODUCT CODE | [id number] | | + + + + + + + | Specimen | Performing Laboratory | + + + | | [facility], TRANSFUSION MEDICINE [address] [facility] | | | [place] [address] | + + + PRODUCT - FRESH FROZEN PLASMA (09/01/2017 9:08 AM) + + + + | Component | Value | Ref Range | + + + + | PRODUCT DESCRIPTION | PLASMA THAWED | | + + + + | PRODUCT UNIT # | [id number] | | + + + + | UNIT ABO | B | | + + + + | UNIT RH | POS | | + + + + | STATUS OF UNIT | Presumed Transfused | | + + + + | EXPIRATION DATE | [id number] | | + + + + | BLOOD TYPE BARCODE | 7300 | | + + + + | BLOOD PRODUCT CODE | [id number] | | + + + + + + + | Specimen | Performing Laboratory | + + + | | [facility], TRANSFUSION MEDICINE [address] [place] [address] | | | [place] [address] | + + + PRODUCT - FRESH FROZEN PLASMA (09/01/2017 9:08 AM) + + + + | Component | Value | Ref Range | + + + + | PRODUCT DESCRIPTION | THAWED APHERESIS PLASMA | | + + + + | PRODUCT UNIT # | [id number] | | + + + + | UNIT ABO | B | | + + + + | UNIT RH | POS | | + + + + | STATUS OF UNIT | Presumed Transfused | | + + + + | EXPIRATION DATE | [id number] | | + + + + | BLOOD TYPE BARCODE | 7300 | | + + + + | BLOOD PRODUCT CODE | [id number] | | + + + + + + + | Specimen | Performing Laboratory | + + + | | [facility], TRANSFUSION MEDICINE [address] [place] [address] | | | [place] [address] | + + + CT HEAD WO CONTRAST (09/01/2017 8:42 AM) + + + | Specimen | Performing Laboratory | + + + | | [facility] VOICE RECOGNITION | + + + [...] Note | + + | 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, Daily Aisle Res In Interface - 09/01/2017 9:01 AM [...] + + | PRODUCT UNIT # | [id number] | | + + + + | UNIT ABO | O | | + + + + | UNIT RH | POS | | + + + + | STATUS OF UNIT | Presumed Transfused | | + + + + | EXPIRATION DATE | [id number] | | + + + + | BLOOD TYPE BARCODE | 5100 | | + + + + | BLOOD PRODUCT CODE | [id number] | | + + + + + + + | Specimen | Performing Laboratory | + + + | | [facility], TRANSFUSION MEDICINE [address] [place] [address] | | | [place] [address] | + + + LACTATE (09/01/2017 5:29 AM) + +-------+ + | Component | Value | Ref Range | + +-------+ + | LACTATE | 1.2 | mmol/L | + +-------+ + + + + | Specimen | Performing Laboratory | + + + | Blood | [facility], CORE [address] [facility] | | | [place] [address] | + + + + + | [...] | + + + | Blood | [facility], [facility] [address] [place] [address] | | | [place] [address] | + + + MRI SPINE CERVICAL/THORACIC WO CONTRAST (09/01/2017 3:53 AM) + + + | Specimen | Performing Laboratory | + + + | | [facility] VOICE RECOGNITION | + + + [...] | | injured. Discussed with trauma ICU direct marketing intern by Dr. Yang at 4:38 AM. [...] interspinous ligament is injured.Discussed with trauma ICU direct marketing intern | | by Dr. Yang at 4:38 AM.I have personally reviewed the images and, if necessary, | | edited the report. I agree with the report as now presented. | |3. Extensive soft tissue edema extending into the cervical and upper thoracic interspinous space, suggestive of interspinous ligament is injured. | | | |Discussed with trauma ICU direct marketing intern by Dr. Yang at 4:38 AM. [...] | >60 | >60 mL/min | | [place] | | | + +---------+ + | EGFR NON | >60 | >60 mL/min | | -[place] | | | + +---------+ + | [...] + + + | Blood | [facility], CORE [facility] | | | [place] [address] | + + + + + | [...] + + + | Blood | [facility], CORE [address] | | | [place] [address] | + + + + + | [...] | + + + | Blood | [facility], CORE [address] [facility] | | | [facility] [place] [address] | + + + LACTATE (09/01/2017 1:32 AM) + +-------+ + | Component | Value | Ref Range | + +-------+ + | LACTATE | 1.4 | mmol/L | + +-------+ + + + + | Specimen | Performing Laboratory | + + + | Blood | [facility], CORE [address] [facility] | | | [place] [address] | + + + + + | [...] | | ------ CBC (HEMOGRAM) | | ONLY[[id number]] Abnormal Final | | result Please view [...] pleural spaced was performed. A 32 size Scottish chest tube was placed into the | [...] CT scanner. [facility] [facility] | | MD MIGEUL | + + CT HEAD WO CONTRAST (09/01/2017 12:54 AM) + + + | Specimen | Performing Laboratory | + + + | | [facility] VOICE RECOGNITION | + + + [...] | ventricles. Discussed with the trauma ICU direct marketing intern at 12:[address] Yang. [...] ventricles.Discussed with | | the trauma ICU direct marketing intern at 12:[address] Yang.I [...] | | |Discussed with the trauma ICU direct marketing intern at 12:[address] Yang. | | | | | |I have personally reviewed the images and, if necessary, edited the report. I agree with t he report as now presented. | + + PROCEDURE NOTE (09/01/2017 12:47 AM) + + + | Specimen | Performing Laboratory | + + + | | [facility] TESTS [address] | | | [place] [address] | + + + + + | [...] | + + + | Blood | [facility], CORE [address] [facility] | | | [place] [address] | + + + LACTATE (08/31/2017 9:19 PM) + +-------+ + | Component | Value | Ref Range | + +-------+ + | LACTATE | 2.2 | mmol/L | + +-------+ + + + + | Specimen | Performing Laboratory | + + + | Blood | [facility], CORE [address] [place] | | | [place] [address] | + + + + + | [...] Laboratory | + + + | | [facility] VOICE RECOGNITION | + + + [...] Laboratory | + + + | | [facility] VOICE RECOGNITION | + + + [...] Laboratory | + + + | | [facility] VOICE RECOGNITION | + + + [...] Note | + + | 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, Daily Aisle Res In Interface - 09/01/2017 1:50 PM [...] | + + + | Blood | [facility], CORE [address] | | | [place] [address] | + + + X-RAY PORTABLE CHEST 1 VIEW (08/31/2017 7:07 PM) + + + | Specimen | Performing Laboratory | + + + | | [facility] VOICE RECOGNITION | + + + + + | Narrative | + + | STUDY: VT CHEST 1 [...] Note | + + | 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, Daily Aisle Res In Interface - 09/01/2017 1:44 PM [...] | + + + | Blood | [facility], CORE [address] [place] [address] | | | [place] [address] | + + + CTA NECK W CONTRAST (08/31/2017 6:27 PM) + + + | Specimen | Performing Laboratory | + + + | | [facility] VOICE RECOGNITION | + + + [...] Note | + + | 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, Daily Aisle Res In Interface - 08/31/2017 8:22 PM [...] Laboratory | + + + | | [facility] VOICE RECOGNITION | + + + [...] Note | + + | 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, Daily Aisle Res In Interface - 09/01/2017 10:12 AM [...] rib, nondisplaced-Left | | 1st rib fracture, euooiplxldtf-Gjt-phrujecpm left lateral 8th rib fracture-T12 fracture | [...] | + + + | Blood | [facility], TRANSFUSION MEDICINE [address] [place] [address] | | | [place] [address] | + + + ABO & RH [...] | + + + | Blood | [facility], TRANSFUSION MEDICINE [address] [place] [address] | | | [place] [address] | + + + TYPE AND SCREEN [...] | ------ ABO & RH | | TYPE[[id number]] F | | inal result ANTIBODY | | SCREEN[[id number]] Fin | | al result Please view [...] | + + + | Blood | [facility], TRANSFUSION MEDICINE [address] [facility] | | | [place] [address] | + + + THROMBELASTOGRAPH, POC (08/31/2017 [...] | + + + | Blood | [facility] TESTS [address] | | | [place] [address] | + + + + + | [...] | + + + | Blood | [facility], POINT OF CARE TESTS [address] | | | [place] [address] | + + + + + | [...] Laboratory | + + + | | [facility] PO[facility] CARE TESTS [address] | | | [place] [address] | + + + ED BG-LAC,POC (08/31/2017 [...] [address] | | | [place] [address] | + + + PRODUCT - RED CELLS LEUKOREDUCED (08/31/2017 5:06 PM) + + + + | Component | Value | Ref Range | + + + + | PRODUCT DESCRIPTION | -1 RED BLOOD CELL ADENINE-SALINE ADDED | | | | LEUKOCYTE | | + + + + | PRODUCT UNIT # | [id number] | | + + + + | UNIT ABO | O | | + + + + | UNIT RH | POS | | + + + + | STATUS OF UNIT | Returned to Blood Bank | | + + + + | EXPIRATION DATE | [id number] | | + + + + | BLOOD TYPE BARCODE | 5100 | | + + + + | BLOOD PRODUCT CODE | [id number] | | + + + + + + + | Specimen | Performing Laboratory | + + + | | [facility], TRANSFUSION MEDICINE [address] [facility] | | | [place] [address] | + + + PRODUCT - RED CELLS LEUKOREDUCED (08/31/2017 5:06 PM) + + + + | Component | Value | Ref Range | + + + + | PRODUCT DESCRIPTION | -1 RED BLOOD CELL ADENINE-SALINE ADDED | | | | LEUKOCYTE | | + + + + | PRODUCT UNIT # | [id number] | | + + + + | UNIT ABO | O | | + + + + | UNIT RH | POS | | + + + + | STATUS OF UNIT | Presumed Transfused | | + + + + | EXPIRATION DATE | [id number] | | + + + + | BLOOD TYPE BARCODE | 5100 | | + + + + | BLOOD PRODUCT CODE | [id number] | | + + + + + + + | Specimen | Performing Laboratory | + + + | | [facility], TRANSFUSION MEDICINE [address] [facility] | | | [place] [address] | + + + PRODUCT - RED CELLS LEUKOREDUCED (08/31/2017 5:06 PM) + + + + | Component | Value | Ref Range | + + + + | PRODUCT DESCRIPTION | -1 RED BLOOD CELL ADENINE-SALINE ADDED | | | | LEUKOCYTE | | + + + + | PRODUCT UNIT # | [id number] | | + + + + | UNIT ABO | O | | + + + + | UNIT RH | POS | | + + + + | STATUS OF UNIT | Returned to Blood Bank | | + + + + | EXPIRATION DATE | [id number] | | + + + + | BLOOD TYPE BARCODE | 5100 | | + + + + | BLOOD PRODUCT CODE | [id number] | | + + + + + + + | Specimen | Performing Laboratory | + + + | | [facility], TRANSFUSION MEDICINE [address] [facility] | | | [place] [address] | + + + PRODUCT - RED CELLS LEUKOREDUCED (08/31/2017 5:06 PM) + + + + | Component | Value | Ref Range | + + + + | PRODUCT DESCRIPTION | -1 RED BLOOD CELL ADENINE-SALINE ADDED | | | | LEUKOCYTE | | + + + + | PRODUCT UNIT # | [id number] | | + + + + | UNIT ABO | O | | + + + + | UNIT RH | POS | | + + + + | STATUS OF UNIT | Presumed Transfused | | + + + + | EXPIRATION DATE | [id number] | | + + + + | BLOOD TYPE BARCODE | 5100 | | + + + + | BLOOD PRODUCT CODE | [id number] | | + + + + + + + | Specimen | Performing Laboratory | + + + | | [facility], TRANSFUSION MEDICINE [address] [facility] | | | [place] [address] | + + + PRODUCT - FRESH FROZEN PLASMA (08/31/2017 5:05 PM) + + + + | Component | Value | Ref Range | + + + + | PRODUCT DESCRIPTION | LIQUID PLASMA, IRRADIATED | | + + + + | PRODUCT UNIT # | [id number] | | + + + + | UNIT ABO | A | | + + + + | UNIT RH | POS | | + + + + | STATUS OF UNIT | Presumed Transfused | | + + + + | EXPIRATION DATE | [id number] | | + + + + | BLOOD TYPE BARCODE | 6200 | | + + + + | BLOOD PRODUCT CODE | [id number] | | + + + + + + + | Specimen | Performing Laboratory | + + + | | [facility], TRANSFUSION MEDICINE [address] | | | [place] [address] | + + + PRODUCT - FRESH FROZEN PLASMA (08/31/2017 5:05 PM) + + + + | Component | Value | Ref Range | + + + + | PRODUCT DESCRIPTION | LIQUID PLASMA, IRRADIATED | | + + + + | PRODUCT UNIT # | [id number] | | + + + + | UNIT ABO | A | | + + + + | UNIT RH | POS | | + + + + | STATUS OF UNIT | Presumed Transfused | | + + + + | EXPIRATION DATE | [id number] | | + + + + | BLOOD TYPE BARCODE | 6200 | | + + + + | BLOOD PRODUCT CODE | [id number] | | + + + + + + + | Specimen | Performing Laboratory | + + + | | [facility], TRANSFUSION MEDICINE [address] [facility] | | | [place] [address] | + + + PRODUCT - FRESH FROZEN PLASMA (08/31/2017 5:05 PM) + + + + | Component | Value | Ref Range | + + + + | PRODUCT DESCRIPTION | LIQUID PLASMA, IRRADIATED | | + + + + | PRODUCT UNIT # | [id number] | | + + + + | UNIT ABO | A | | + + + + | UNIT RH | POS | | + + + + | STATUS OF UNIT | Returned to Blood Bank | | + + + + | EXPIRATION DATE | [id number] | | + + + + | BLOOD TYPE BARCODE | 6200 | | + + + + | BLOOD PRODUCT CODE | [id number] | | + + + + + + + | Specimen | Performing Laboratory | + + + | | [facility], TRANSFUSION MEDICINE [address] [facility] | | | [place] [address] | + + + PRODUCT - FRESH FROZEN PLASMA (08/31/2017 5:05 PM) + + + + | Component | Value | Ref Range | + + + + | PRODUCT DESCRIPTION | LIQUID PLASMA, IRRADIATED | | + + + + | PRODUCT UNIT # | [id number] | | + + + + | UNIT ABO | A | | + + + + | UNIT RH | POS | | + + + + | STATUS OF UNIT | Returned to Blood Bank | | + + + + | EXPIRATION DATE | [id number] | | + + + + | BLOOD TYPE BARCODE | 6200 | | + + + + | BLOOD PRODUCT CODE | [id number] | | + + + + + + + | Specimen | Performing Laboratory | + + + | | [facility], TRANSFUSION MEDICINE [address] [facility] | | | [place] [address] | + + + CBC (HEMOGRAM) ONLY [...] | + + + | Blood | [facility], CORE [address] [place] [address] | | | [place] [address] | + + + BASIC METABOLIC SET [...] | >60 | >60 mL/min | | [place] | | | + +---------+ + | EGFR NON | >60 | >60 mL/min | | -[place] | | | + +---------+ + | [...] | + + + | Blood | [facility], C[address] [address] | | | [place] [address] | + + + + + | [...] | + + + | Blood | [facility], CORE [address] [facility] | | | [place] [address] | + + + + + | [...] | | ------ CBC (HEMOGRAM) | | ONLY[[id number]] Abnormal Final | | result Please view [...] + + + | Blood | [facility], CORE [address] [place] [address] | | | [place] [address] | + + + PHOSPHORUS, PLASMA (08/31/2017 4:50 PM) + +-------+ + | Component | Value | Ref Range | + +-------+ + | PHOSPHORUS, PLASMA | 4.0 | 2.4 - 4.7 mg/dL | | (LAB) | | | + +-------+ + + + + | Specimen | Performing Laboratory | + + + | Blood | [facility], CORE [address] [facility] | | | [place] [address] | + + + MAGNESIUM, PLASMA (08/31/2017 4:50 PM) + +---------+ + | Component | Value | Ref Range | + +---------+ + | MAGNESIUM,PLASMA | 1.5 (L) | 1.6 - 2.6 mg/dL | + +---------+ + + + + | Specimen | Performing Laboratory | + + + | Blood | [facility], CORE [address] [facility] | | | [place] [address] | + + + + + | [...]
--- OUTSIDE RECORDS SUMMARY | ~2017-12-10 | XMS | Encounter Summary ---
Demographics + + + | Address | [address] | | | [place] [address] | + + + | Home Phone [...] + | Author | [facility] [employer] [facility] | + + + | Organization | [facility] [employer] [facility] | + + + | Address | Unknown | + + + | Phone | Unavailable | + + + Support + + +---------+ + | Name | Relationship | Address | Phone | + + +---------+ + | Kaylie Baig | ECON | Unknown | | + + +---------+ + Care Team Providers + +------+ + | Care Mercury Cell Cleaner Name | Role | Phone | + [...] | | | 2018 | Event | [facility] | [address] [facility] [address] | | | | | Admitting Desk | [facility] | | | | | [facility] on the | [place] [address] | | | | | floor [address] [place] [address] | [phone] | | | | | [facility] | | | | | | [place], [place] | | | | | | [address] | | | +--------+ + + + [...]
--- OUTSIDE RECORDS SUMMARY | ~2017-12-10 | XMS | Encounter Summary ---
Demographics + + + | Address | [address] | | | [place] [address] | + + + | Home Phone [...] Author + + + | Author | [facility] [email or web address] [facility] | + + + | Organization | [facility] [employer] [facility] | + + + | Address | Unknown | + + + | Phone | Unavailable | + + + Support + + +---------+ + | Name | Relationship | Address | Phone | + + +---------+ + | Kaylie Baig | ECON | Unknown | | + + +---------+ + Care Team Providers + +------+ + | Care Gate Keeper Name | Role | Phone | [...] | | | | | floor [address] [facility] | | | | | | [facility] | | | | | | [place], [place] | | | | | | [address] | | | +--------+ + + + [...]
--- OUTSIDE RECORDS SUMMARY | ~2017-12-10 | XMS | Encounter Summary ---
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 [facility] [place] [address] [phone] Associated attestation - Chaz Munoz MD - 10/08/2017 12:16 PM PDTI saw and examined th e patient today with KESHAWN Martin, and agree with the assessement and plan a s outlined in her note. No acute events. Seems to be slowly improving from MS. Appreciate ps ychiatry recs. Chaz Munoz MD, FACS [facility], Trauma, Critical Care and Acute Care Surgery [...] - patient unable to come out fo JOB PLACEMENT OFFICER for now - Will likely need for [...] G [place]g [phone] [facility] [place] [address] [phone] Associated attestation - Chaz Munoz MD - 10/07/2017 11:15 AM PDTI saw and examined th e patient today with KESHAWN Martin, and agree with the assessement and plan a s outlined in her note. Will consider changing to bolus TF. Plan Gabriel-oconnor tube next week. Chaz Munoz MD, FACS [facility], Trauma, Critical Care and Acute Care Surgery [...] p atient unable to come out fo JOB PLACEMENT OFFICER for now Resolved or chronic issues/Plan: #Previous [...] by patient, but wound remains duke n/dry/intact. [place] removed 09/17. #Left hemothorax Chest tube placed [...] issues, including restraints. Venita Pruitt PA-C [place] [phone] [facility] [place] [address] [phone] Associated attestation - Em Cunningham MD - 10/17/2017 10:13 AM PDTI was present and rou nded with the Advanced Practice Provider today . I interviewed and examined the patient. I reviewed the history, as documented today. I agree with the ASHLEY assessment and plan. TBI has remained stable. On lovenox. Will continue haldol per psych.. EM CUNNINGHAM MD [facility] [address] [place] [address] [place] [address] Venita Pruitt PA-C - 10/05/2017 8:38 AM [...] p atient unable to come out fo JOB PLACEMENT OFFICER for now Resolved or chronic issues/Plan: #Previous [...] issues, including restraints. Venita Pruitt PA-[place] [phone] [place] [phone] [facility] [place] [address] [place] [facility] [place] [address] [phone] Associated attestation - Shlomo Rosenthal MD - 10/06/2017 7:28 AM PDTFormatting of this note m ay be different from the original. I saw and examined Berlin Temple ([id number]) with the TRAUMA team on 10/05/2017. I [...] and incen tive spirometry for pulmonary toliet. erp project manager for disposition planning and placement. Shlomo Rosenthal MD Chief Of Staff Doctor Division of Trauma and Critical Care Venita [...] (baseline from previous TBI ) Neck: in [place] collar Respiratory: CTA b.l CV: RRR GI: [...] p atient unable to come out fo JOB PLACEMENT OFFICER for now Resolved or chronic issues/Plan: #Previous [...] by patient, but wound remains duke n/dry/intact. [place] removed 09/17. #Left hemothorax Chest tube placed [...] issues, including restraints. Venita Pruitt PA-C [place] [phone] [place] [phone] [facility] [address] [place] [facility] [phone] Associated attestation - Fidelina Shields MD - [...] and only enteral access. Fidelina Shields MD [facility] Division of Trauma, Critical Care and Acute Care Surgery Office: [phone] Pager: [phone] Leonor Torres ACNP - 10/03/2017 3:13 PM [...] (baseline from previous TBI ) Neck: in [place] collar Respiratory: CTA bilaterally, no distress CV: [...] p atient unable to come out fo JOB PLACEMENT OFFICER for now Resolved or chronic issues/Plan: Previous [...] PDTAttending: I saw and examined Berlin Temple ([id number]) with CB Hair on morning rounds 10/03 and agree with the assessment and plan as outlined in this note and participated in the planning of care. Mental status is slightly better, remains sedated but he is interactive and at least somewh at oriented. Enteral nutrition advancing and, as approaches goal, will turn TPN off. Place ment remains a significant issue. Fidelina Shields MD [facility] Division of Trauma, Critical Care and Acute Care Surgery Office: [phone] Pager: [phone] July Banegas PA-C - 10/03/2017 12:58 PM [...] the C-collar when in bed then the JOB PLACEMENT OFFICER when out of bed until 12/01/17. JULY BANEGAS PA-C [facility] [address] [place] [address] Associated attestation - Magdiel Stock MD - 10/04/2017 6:02 PM PDTI performed a history a nd physical examination of the patient and discussed the management with the advanced practi ce provider, July Banegas PA-C. I reviewed the advanced practice provider's note and agree w ith the plan of care as documented. Continue cervical collar and JOB PLACEMENT OFFICER for 3 months to ensure fracture healing and prevent development of post-fracture cervical kyphosis. Magdiel Stock MD [facility] Department of Neurological Surgery [facility] [place] Sherine Madiha, AGACN - 10/02/2017 12:54 [...] (baseline from previous TBI ) Neck: in [place] collar Respiratory: CTA bilaterally, lungs symmetrical, equal chest wall rise, no retractions CV: RRR GI: non tender, soft, active BS, last BM 09/30 : Patient voiding without difficulty Extremities: no peripheral edema, wiggles toes and toes pink and well perfused Musculoskeletal: 5/5 green building architect strength on right, 3/5 green building architect strength on left FEN: on TPN, [...] AMS & delirium - numerous evaluations by FASHION MERCHANDISER with trials of PO - now s/p [...] . - C-collar at all times, use JOB PLACEMENT OFFICER when OOB - Follow-up with Neurosurgery on [...] will decrease scheduled [place]g [phone] Associated attestation - Fidelina Shields MD - 10/02/2017 4:40 PM PDTAttending: I saw and examined Berlin Temple ([id number]) [facility] and agree with the assessment and plan as outlined in this note and partic ipated in the planning of care. DHT in place and TF advancing - with antipsychotics dosed in conjunction with psychiatry an d weaning haldol slightly. Transition keppra => depakote given potential for agitating side effects of keppra. PICC drawn back to midline position. May need client advocate enteral access , but is ~4 weeks s/p damage control laparotomy and risk is higher now than it will be in 7- 14 days and if swallow is not improving then will place prior to DC Fidelina Shields MD [facility] Division of Trauma, Critical Care and Acute Care Surgery Office: [phone] Pager: [phone] Sherine Sarmiento AGACNP - 10/01/2017 7:27 AM [...] (baseline from previous TBI ) Neck: in [place] collar Respiratory: CTA bilaterally, lungs symmetrical, equal chest wall rise, no retractions CV: RRR GI: non tender, soft, active BS, last BM 09/30 : Patient voiding without difficulty Extremities: no peripheral edema, wiggles toes and toes pink and well perfused Musculoskeletal: 5/5 green building architect strength on right, 3/5 green building architect strength on left FEN: on TPN [...] AMS & delirium - numerous evaluations by FASHION MERCHANDISER with trials of PO - now s/p modified barium swallow x2 which indicates aspiration - continue NPO - FASHION MERCHANDISER reports that patient working on tongue strength [...] . - C-collar at all times, use JOB PLACEMENT OFFICER when OOB - Follow-up with Neurosurgery on [...] trauma team [place] [phone] Associated attestation - Fidelina Shields MD - 10/02/2017 4:40 PM PDTAttending: I saw and examined Berlin Temple ([id number]) with KESHAWN Alexander on mornin g rounds 10/01/17 and agree with the assessment and plan as outlined in this note and partic ipated in the planning of care. Will trial DHT placement today, CT head unchanged. Suspect somnolence is medication side ef fect and, if persistent, may need to wean antipsychotic doses. Fidelina Shields MD [facility] Division of Trauma, Critical Care and Acute Care Surgery Office: [phone] Pager: [phone] Christian Kelley PA-C - 09/30/2017 12:21 PM [...] Fixed and dilated on left Neck: in [place] collar Respiratory: CTA bilaterally, lungs symmetrical, equal chest wall rise, no retractions CV: RRR GI: non tender, soft, active BS, last BM 09/30 : Patient voiding without difficulty Extremities: no peripheral edema, wiggles toes and toes pink and well perfused Musculoskeletal: 5/5 green building architect strength on right, 3/5 green building architect strength on left FEN: on TPN [...] AMS & delirium - numerous evaluations by FASHION MERCHANDISER with trials of PO - now s/p modified barium swallow x2 which indicates aspiration - continue NPO - FASHION MERCHANDISER reports that patient working on tongue strength [...] . - C-collar at all times, use JOB PLACEMENT OFFICER when OOB - Follow-up with Neurosurgery on [...] PDTAttending: I saw and examined Berlin Temple ([id number]) with Christian Kelley PA-C on morning rounds 09/30 and agree with the assessment and plan as outlined in this note and participated in the planning of care. Mentally slower this morning, but non-focal. Received haldol overnight for sleep. Repeat head CT was unchanged so suspect etiology of slowed responsiveness is the antipsychotic dose . FASHION MERCHANDISER believes that, once collar off, may be able to take PO more effectively and thus will hold off on surgical feeding access. TPN is a temporary solution and if patient remains kaye nable will trial DHT tomorrow. Working with psychiatry for medication recommendations. Fidelina Shields MD [facility] Division of Trauma, Critical Care and Acute Care Surgery Office: [phone] Pager: [phone] July Banegas PA-C - 09/30/2017 8:23 AM PDTBrief Neurosurgery Wound Check: Wound is dry, without erythema, not fluctuant. No acute swelling. Nylon in place. Will plan to follow peripherally for wound checks and remove nylons on 10/09. JULY BANEGAS PA-C [facility] [address] [place] [address] Christian Kelley PA-C - 09/29/2017 7:15 AM [...] and EOMs intact to exam Neck: in [place] collar Respiratory: CTA bilaterally, lungs symmetrical, equal [...] AMS & delirium - numerous evaluations by FASHION MERCHANDISER with trials of PO - now s/p [...] . - C-collar at all times, use JOB PLACEMENT OFFICER when OOB - Follow-up with Neurosurgery on [...] PDTAttending: I saw and examined Berlin Temple ([id number]) with Christian Kelley PA-C on morning rounds 09/29 and agree with the assessment and plan as outlined in this note and participated in the planning of care. Late entry for 09/29/17. Persistent alterations in conscious and dysphagia. Hopefully with ongoing speech therapy a nd when clear to take c-collar off, will improve ability to take PO. While TPN is not an opt imal intermediate strategy, would prefer not to place surgical feeding tube if possible given r elatively recent damage control laparotomy and high risk of Mr. Temple pulling it out. Have tried DHT several times and it seems to worsen delirium and he pulls it out frequently. Tit ration of haldol in conjunction with psychiatry. Fidelina Shields MD [facility] Division of Trauma, Critical Care and Acute Care Surgery Office: [phone] Pager: [phone] Christian Kelley PA-C - 09/28/2017 1:01 PM [...] he said, who, ariel? And then the COLLECTION SYSTEMS TECHNICIAN helped him make a call to [...] and EOMs intact to exam Neck: in [place] collar Respiratory: CTA bilaterally, lungs symmetrical, equal [...] very agitated today. - EKG today with Mcfarland QTc calculated to be 428 - optimize [...] AMS & delirium - numerous evaluations by FASHION MERCHANDISER with trials of PO - now s/p [...] . - C-collar at all times, use JOB PLACEMENT OFFICER when OOB - Follow-up with Neurosurgery on 10/21 with repeat X-rays #Blunt abdominal trauma #Splenic laceration S/p laparotomies x2. Fascia closed 09/02 Wound vac removed by patient, but wound remains duke n/dry/intact. [place] removed 09/17. #Left hemothorax Chest tube placed [...] to communicate more toyoselin Munoz MD, FACS [facility], Trauma, Critical Care and Acute Care Surgery Chaz Munoz MD - 09/28/2017 10:13 AM PDTTrauma Staff Seen and examined this AM with team. I have concerns abotu behaviour, as he is consistently threatening RN and ancillary staff, even attempting swings. Behavior seems worse at night. I would favor increasing night time Haldol dose, and following EKGs. Chaz Munoz MD, FACS [facility], Trauma, Critical Care and Acute Care Surgery [...] Dallin Bourgeois MD Neurosurgery PGY1 | Pager #[phone] Christian Kelley PA-C - 09/27/2017 7:31 AM [...] able to have a linear conversation briefly FASHION MERCHANDISER requesting repeat barium swallow Current meds: I [...] incision healing , suture c/d/I Neck: in JOB PLACEMENT OFFICER Respiratory: unlabored on room air, lungs symmetrical, [...] AMS & delirium - numerous evaluations by FASHION MERCHANDISER with trials of PO - now s/p [...] . - C-collar at all times, use JOB PLACEMENT OFFICER when OOB - Follow-up with Neurosurgery on 10/21 with repeat X-rays #Blunt abdominal trauma #Splenic laceration S/p laparotomies x2. Fascia closed 09/02 Wound vac removed by patient, but wound remains duke n/dry/intact. [place] removed 09/17. #Left hemothorax Chest tube placed [...] TPN for now. EM CUNNINGHAM MD [facility] [address] [facility] [address] [place] [address] Christian Kelley PA-C - 09/26/2017 6:48 AM [...] posterior scalp crani incision c/d/I Neck: in [place] collar Respiratory: unlabored on room air CV: [...] AMS & delirium - numerous evaluations by FASHION MERCHANDISER with trials of PO - now s/p [...] . - C-collar at all times, use JOB PLACEMENT OFFICER when OOB - Follow-up with Neurosurgery on [...] NPO and TPN. EM CUNNINGHAM MD [facility] [address] [place] [address] Christian Kelley PA-C - 09/25/2017 7:49 AM [...] HEENT: EOMs intact to exam Neck: in JOB PLACEMENT OFFICER brace Respiratory: unlabored on room air CV: [...] AMS & delirium - numerous evaluations by FASHION MERCHANDISER with trials of PO - now s/p [...] . - C-collar at all times, use JOB PLACEMENT OFFICER when OOB - Follow-up with Neurosurgery on [...] wnl. Continue TPN. EM CUNNINGHAM MD [facility] [address] [place] [address] Christian Kelley PA-C - 09/24/2017 11:07 AM [...] with agitation Having difficulty swallowing again - FASHION MERCHANDISER to re-eval and obtain barium swallow Current [...] HEENT: EOMs intact to exam Neck: in JOB PLACEMENT OFFICER brace Respiratory: CTA bilaterally, lungs symmetrical, equal chest wall rise, no retractions CV: RRR GI: non distended, last BM 09/23 : good urine output Extremities: SCD's in place, no peripheral edema, wiggles toes and toes pink and well perfu sed Musculoskeletal: 5/5 strength in bilateral green building architect (but with slightly weaker on left) [...] PRN seroquel dose QHS for insomnia/restlessness at [facility] - Haldol 5mg q12hr prn [...] likely 2/2 AMS & delirium - Failed FASHION MERCHANDISER eval 09/19 & 09/20, made NPO & dobhoff reinserted 09/21 but pulled overnight - Per FASHION MERCHANDISER on 09/21, ok for therapeutic pureed with [...] . - C-collar at all times, use JOB PLACEMENT OFFICER when OOB - Follow-up with Neurosurgery on 10/21 with repeat X-rays #Blunt abdominal trauma #Splenic laceration S/p laparotomies x2. Fascia closed 09/02 Wound vac removed by patient, but wound remains duke n/dry/intact. [place] removed 09/17. #Left hemothorax Chest tube placed [...] abx for dehiscence. EM CUNNINGHAM MD [facility] [address] [place] [address] Ginette Campos PA-C - 09/24/2017 9:31 AM [...] 4 extremities Unable to assess drift. Motor: Scouring Train Operator Chief Bicep Tricep Delt R 5 5 5 [...] questions or concerns. Ginette Campos PA-C [facility] [address] [place] [address] Pg [phone] Sherine Sarmiento, [facility] - 09/23/2017 6:32 AM PDTFormatting of this [...] hiscence, draining minimal serosang fluid Neck: in JOB PLACEMENT OFFICER brace Respiratory: unlabored on room air CV: [...] PRN seroquel dose QHS for insomnia/restlessness at [facility] - Repeat ECG 09/22 with [...] likely 2/2 AMS & delirium - Failed FASHION MERCHANDISER eval 09/19 & 09/20, made NPO & dobhoff reinserted 09/21 but pulled overnight - Per FASHION MERCHANDISER on 09/21, ok for therapeutic pureed with [...] . - C-collar at all times, use JOB PLACEMENT OFFICER when OOB - Follow-up with Neurosurgery on 10/21 with repeat X-rays #Blunt abdominal trauma #Splenic laceration S/p laparotomies x2. Fascia closed 09/02 Wound vac removed by patient, but wound remains duke n/dry/intact. [place] removed 09/17. #Left hemothorax Chest tube placed [...] dysphagia & delir ium improves Sherine Sarmiento, [facility] [place]g [phone] Dallin Bourgeois MD - 09/22/2017 8:03 AM [...] - OK for diet - Hold lovenox Dlalin Bourgeois MD Neurosurgery PGY1 | Pager #[phone] Sherine Sarmiento AGACNP - 09/22/2017 6:52 AM [...] 24hr events: - Therapeutic purees initiated by FASHION MERCHANDISER yesterday - Trickle feeds via Dobbhoff, pt pulled Dobbhoff yesterday evening- not replaced - COMPUTER TYPESETTER called around 0 for new left facial [...] sluggish. Slight left facial droop Neck: in [place] collar Respiratory: unlabored on room air CV: [...] PRN seroquel dose QHS for insomnia/restlessness at [facility]- - Repeat ECG 09/22 with Q Tc WNL. - Haldol 5mg q12hr prn for severe agitation #Substance abuse, concern for Alcohol withdrawal - CIWA discontinued 09/08, not scoring. - Thiamine & folate started 09/21 #Dysphagia, risk for aspiration #Protein calorie malnutirtion - likely 2/2 AMS & delirium - Failed FASHION MERCHANDISER eval 09/19 & 09/20, made NPO & dobhoff reinserted 09/21 but pulled overnight - Per FASHION MERCHANDISER on 09/21, ok for therapeutic pureed with [...] . - C-collar at all times, use JOB PLACEMENT OFFICER when OOB - Follow-up with Neurosurgery on 10/21 with repeat X-rays #Blunt abdominal trauma #Splenic laceration S/p laparotomies x2. Fascia closed 09/02 Wound vac removed by patient, but wound remains duke n/dry/intact. [place] removed 09/17. #Left hemothorax Chest tube placed [...] when dysphagia & delirium improves Sherine Sarmiento, [facility] Pg [phone] Associated attestation - Shiva Nieto MD,MPH - [...] Trauma, Critical Care & Acute Care Surgery [facility] [phone] Sami Black - 09/21/2017 10:25 PM PDTBrief [...] in the morning. Plan: -neuro checks; page [phone] for any decline in neurological examination -pain control -Hard C collar at all times and place JOB PLACEMENT OFFICER prior to mobilizing OOB. Anticipated duration of Collar/JOB PLACEMENT OFFICER is 12 weeks -repeat CT head for any new decline in neurological exam and page [phone] -NPO at midnight tonight -please hold tonight's planned dose of Lovenox -further recommendations in the morning Sami Black MD, PhD PGY-3 Resident Neurosurgery [id number] estrella AGACN - 09/21/2017 7:10 AM PDTFormatting [...] Provena placem ent 24hr events: - Failed FASHION MERCHANDISER eval again yest morning, continued NPO - [...] reactive. Dobbhoff tube in place Neck: in [place] collar Respiratory: unlabored on room air CV: [...] likely 2/2 AMS & delirium - Failed FASHION MERCHANDISER eval 09/19 & 09/20, made NPO & dobhoff reinserted yesterday - Trickle feeds started this am at 20ml/hr, increase very slowly by 10ml every 12 hrs to go al of 75 due to hx of mesenteric hematomas and previous inability to tolerate TF - Per FASHION MERCHANDISER today, ok for therapeutic pureed with nectar [...] . - C-collar at all times, use JOB PLACEMENT OFFICER when OOB - Follow-up with Neurosurgery on 10/21 with repeat X-rays #Blunt abdominal trauma #Splenic laceration S/p laparotomies x2. Fascia closed 09/02 Wound vac removed by patient, but wound remains duke n/dry/intact. [place] removed 09/17. #Left hemothorax Chest tube placed [...] & delirium [place] [phone] Associated attestation - Fidelina Shields MD - 09/21/2017 9:36 PM PDTAttending: I saw and examined Berlin Temple ([id number]) with KESHAWN Alexander on mornin g rounds [...] enough to re-trial PO. Fidelina Shields MD [facility] Division of Trauma, Critical Care and Acute Care Surgery Office: [phone] Pager: [phone] Sherine Sarmiento AGACNP - 09/20/2017 7:41 AM [...] haldol given yesterday afternoon for agitation - FASHION MERCHANDISER paged to re-eval in afternoon after concern for aspiration, made NPO by FASHION MERCHANDISER - DARNELL SOLANO Current meds: I have [...] right pupil 3 and reactive Neck: in [place] collar Respiratory: unlabored on room air CV: [...] thick/pureed d iet. Made NPO yesterday by FASHION MERCHANDISER after concern for aspiration. This is likely 2/2 waxing & wan ing delirium & AMS - FASHION MERCHANDISER re-eval today recommend continue NPO d/t overt clinical signs of aspiration - Place Dobbhoff tube and restart feeds, slowly progress to goal - Stop TPN when tolerating tube feeds - FASHION MERCHANDISER will follow closely, as his AMS improves [...] . - C-collar at all times, use JOB PLACEMENT OFFICER when OOB - Follow-up with Neurosurgery on [...] & delirium [place] [phone] Associated attestation - Fidelina Shields MD - 09/20/2017 9:34 PM PDTAttending: I saw and examined Berlin Temple ([id number]) with KESHAWN Alexander on mornin g rounds [...] dispo planning when able. Fidelina Shields MD [facility] Division of Trauma, Critical Care and Acute Care Surgery Office: [phone] Pager: [phone] Mary Medrano MD,MPH - 09/19/2017 6:22 AM [...] downgraded from thin to thick liquids by FASHION MERCHANDISER Current meds: I have independently reviewed current [...] intact, small Right fluctuant pseudomeningocele Neck: in [place] collar Respiratory: unlabored on room air CV: [...] DHT on09/19. - Cleared for diet by FASHION MERCHANDISER, tolerating purees, 749 Calories yesterday - Restart Calorie count: if taking >700 again will be OK for full po diet, otherwise replac e DHT and restart TF - Stop TPN tomorrow regardless - Still considering repeat CT abdomen/pelvis #Dysphagia DHTreplaced overnight 09/07. TF held due to emesis and possible ileus, aspiration risk. DH T pulled overnight on 09/18 - FASHION MERCHANDISER as able Resolved or chronic issues/Plan: #BIG 3 TBI #Right synthetic cranioplasty Neurosurgery consulted. Non-operative management. Last head CT 09/12 stable. Expected pseudo meningocele. Left-sided deficits consistent with baseline. - Stat head CT for any neurologic decline #C7 bilateral lamina fractures #C6-T2 spinous process fractures Neurosurgery consulted. Non-operative management. Upright cervical X-rays completed on 09/14 . - C-collar at all times, use JOB PLACEMENT OFFICER when OOB - Follow-up with Neurosurgery on 10/21 with repeat X-rays #Blunt abdominal trauma #Splenic laceration S/p laparotomies x2. Fascia closed 09/02 Wound vac removed by patient, but wound remains duke n/dry/intact. [place] removed 09/17. #Left hemothorax Chest tube placed [...] M.D., M.P.H. Neurological Surgery Resident PGY-1 Pager: [phone] Associated attestation - Fidelina Shields MD - 09/19/2017 1:36 PM PDTAttending: I saw and examined Berlin Temple ([id number]) with the residents on morning rounds 09/19/17 and agree with the assessment and plan as outlined in this note and participated in the plan aashish of care. Improving po intake, will titrate TPN. Plan to DC TPN tomorrow and transition to PO vs PO + TF depending on calorie counts. Once of restraints will begin looking for placement. Fidelina Shields MD [facility] Division of Trauma, Critical Care and Acute Care Surgery Office: [phone] Pager: [phone] Mary Medrano MD,MPH - 09/18/2017 6:17 AM [...] fluctuant pseudomeningocele,Dobhoff tubein p lace Neck: in [place] collar Respiratory: unlabored on room air CV: [...] holding TF - Cleared for diet by FASHION MERCHANDISER, tolerating small quantities of purees - Will need repeat CT A/P within 1-2 days #Hypervolemia I&O approaching even. Appears to have been auto-diuresing. - Continue to monitor urine output - Monitor electrolytes, replete prn #Dysphagia DHTreplaced overnight 09/07. TF held due to emesis and possible ileus, aspiration risk. - FASHION MERCHANDISER as able #C7 bilateral lamina fractures #C6-T2 spinous process fractures Neurosurgery consulted. Non-operative management. Upright cervical X-rays completed on 09/14 . - C-collar at all times, use JOB PLACEMENT OFFICER when OOB - Follow-up with Neurosurgery on [...] M.D., M.P.H. Neurological Surgery Resident PGY-1 Pager: [phone] Associated attestation - Fidelina Shields MD - 09/19/2017 3:58 PM PDTAttending: I saw and examined Berlin Temple ([id number]) with the residents on morning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 [facility] RADIOLOGY VOICE RECOGNITION 2 | + + [...] | >60 | >60 mL/min | | BAHRAINI | | | + + + + | EGFR NON | >60 | >60 mL/min | | -BAHRAINI | | | + + + + [...] | + + + | Blood | [facility], CORE [address] [facility] | | | [place] [address] | + + + + + | [...] | + + + | Blood | [facility], CORE [address] | | | [place] [address] | + + + + + | Narrative | + + | Reference range change effective 12/11/16. | + + VAS LAB VENOUS DUPLEX LOWER EXTREMITY BILAT COMP (11/19/2017 11:05 AM) + + + | Specimen | Performing Laboratory | + + + | | [facility] RADIOLOGY [facility] US | + + + [...] Note | + + | 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, Picomize Res In Interface - 11/19/2017 11:26 AM [...] Laboratory | + + + | | [facility] [address] [place] [address] | | | [place] [address] | + + + 12 LEAD ECG [...] | ECG IMPRESSION | Electronically signed by: APULO CAVAZOS | | | | 11-19-2017 09:02:43 | | + + + + + + + | Specimen | Performing Laboratory | + + + | | [facility] OF CARDIOLOGY [address] [place] [address] | | | [place] [address] | + + + CALCIUM, IONIZED, WHOLE [...] | + + + | Blood | [facility], CORE [address] [place] [address] | | | [place] [address] | + + + C-REACTIVE PROTEIN (11/18/2017 7:45 AM) + +-------+ + | Component | Value | Ref Range | + +-------+ + | C-REACTIVE PROTEIN | <2.9 | <10.0 mg/L | + +-------+ + + + + | Specimen | Performing Laboratory | + + + | Blood | [facility], CORE [address] [place] [address] | | | [place] [address] | + + + + + | [...] | Blood | [facility] [place] [address] [place], [place] | | | [address] | + + + TRIGLYCERIDES, PLASMA (11/18/2017 7:45 AM) + +---------+ + | Component | Value | Ref Range | + +---------+ + | TRIGLYCERIDES | 162 (H) | <150 mg/dL | + +---------+ + + + + | Specimen | Performing Laboratory | + + + | Blood | [facility], CORE [address] | | | [place] [address] | + + + + + | [...] | + + + | Blood | [facility], CORE [address] [place] [address] | | | [place] [address] | + + + RENAL FUNCTION SET [...] | >60 | >60 mL/min | | BAHRAINI | | | + + + + | EGFR NON | >60 | >60 mL/min | | -BAHRAINI | | | + + + + [...] | + + + | Blood | [facility], CORE [address] [facility] | | | [place] [address] | + + + + + | [...] | + + + | Blood | [facility], CORE [address] [place] [address] | | | [place] [address] | + + + + + | [...] | | [facility] OF CARDIOLOGY [address] [place] [address] | | | [place] [address] | + + + 12 LEAD ECG [...] Laboratory | + + + | | [facility] DEPT OF CARDIOLOGY [address] [place] [address] | | | [place] [address] | + + + CBC (HEMOGRAM) ONLY [...] | + + + | Blood | [facility], CORE [address] | | | [place] [address] | + + + + + | [...] | | ------ CBC (HEMOGRAM) | | ONLY[[id number]] Abnormal Final | | result Please view [...] Laboratory | + + + | | [facility] [address] [place] [address] | | | [place] [address] | + + + RENAL FUNCTION SET [...] | >60 | >60 mL/min | | BAHRAINI | | | + + + + | EGFR NON | >60 | >60 mL/min | | -BAHRAINI | | | + + + + [...] | + + + | Blood | [facility], CORE [address] | | | [place] [address] | + + + + + | [...] | + + + | Blood | [facility], CORE [address] [facility] | | | [place] [address] | + + + + + | [...] Laboratory | + + + | | [facility] [address] [place] [address] | | | [place] [address] | + + + MAGNESIUM, PLASMA (11/13/2017 5:47 AM) + +-------+ + | Component | Value | Ref Range | + +-------+ + | MAGNESIUM,PLASMA | 2.1 | 1.6 - 2.6 mg/dL | + +-------+ + + + + | Specimen | Performing Laboratory | + + + | Blood | [facility], CORE [address] [facility] | | | [place] [address] | + + + + + | [...] | >60 | >60 mL/min | | BAHRAINI | | | + + + + | EGFR NON | >60 | >60 mL/min | | -BAHRAINI | | | + + + + [...] | + + + | Blood | [facility], CORE [address] [place] [address] | | | [place] [address] | + + + + + | [...] | + + + | Urine | [facility] [address] [place], [place] | | | [address] | + + + VASC LAB VENOUS [...] Note | + + | 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, Outfittery In Interface - 11/12/2017 1:46 PM PDT [...] Laboratory | + + + | | [facility] [address] [place] [address] | | | [place] [address] | + + + CT CHEST, ABDOMEN AND PELVIS W IV CONTRAST (11/11/2017 6:57 PM) + + + | Specimen | Performing Laboratory | + + + | | [facility] RADIOLOGY VOICE RECOGNITION 2 | + + [...] | + + + | Blood | [facility], CORE [address] [facility] | | | [place] [address] | + + + PROTEIN ELECTROPHORESIS, SERUM, [...] | + + + | Blood | [facility] [place] [address] [place], [place] | | | [address] | + + + 12 LEAD ECG [...] Laboratory | + + + | | [facility] [address] [place] [address] | | | [place] [address] | + + + C-REACTIVE PROTEIN (11/11/2017 9:06 AM) + +-------+ + | Component | Value | Ref Range | + +-------+ + | C-REACTIVE PROTEIN | <2.9 | <10.0 mg/L | + +-------+ + + + + | Specimen | Performing Laboratory | + + + | Blood | [facility]ORY [facility], CORE [address] [facility] | | | [place] [address] | + + + + + | [...] + + + | Blood | [facility] [place] [address] [place], [place] | | | [address] | + + + TRIGLYCERIDES, PLASMA (11/11/2017 9:06 AM) + +-------+ + | Component | Value | Ref Range | + +-------+ + | TRIGLYCERIDES | 117 | <150 mg/dL | + +-------+ + + + + | Specimen | Performing Laboratory | + + + | Blood | [facility], [facility] [address] | | | [place] [address] | + + + + + | [...] | + + + | Blood | [facility], CORE [address] [facility] | | | [place] [address] | + + + LIVER SET (AST,ALT,BILI [...] | + + + | Blood | [facility], CORE [address] [facility] | | | [place] [address] | + + + RENAL FUNCTION SET [...] | >60 | >60 mL/min | | BAHRAINI | | | + + + + | EGFR NON | >60 | >60 mL/min | | -BAHRAINI | | | + + + + [...] | + + + | Blood | [facility], CORE [address] [place] [address] | | | [place] [address] | + + + + + | [...] | + + + | Blood | [facility], CORE [address] [facility] | | | [place] [address] | + + + + + | [...] | + + + | Blood | [facility], CORE [address] | | | [place] [address] | + + + + + | [...] | >60 | >60 mL/min | | BAHRAINI | | | + + + + | EGFR NON | >60 | >60 mL/min | | -BAHRAINI | | | + + + + [...] | + + + | Blood | [facility], CORE [address] | | | [place] [address] | + + + + + | [...] Laboratory | + + + | | [facility] [address] [place] [address] | | | [place] [address] | + + + MAGNESIUM, PLASMA (11/10/2017 10:19 AM) + +-------+ + | Component | Value | Ref Range | + +-------+ + | MAGNESIUM,PLASMA | 2.0 | 1.6 - 2.6 mg/dL | + +-------+ + + + + | Specimen | Performing Laboratory | + + + | Blood | [facility], CORE [address] | | | [place] [address] | + + + + + | [...] | >60 | >60 mL/min | | BAHRAINI | | | + + + + | EGFR NON | >60 | >60 mL/min | | -BAHRAINI | | | + + + + [...] | + + + | Blood | [facility], CORE [address] [place] [address] | | | [place] [address] | + + + + + | [...] CORE [address] | | | [place] [address] | + + + + + | [...] | >60 | >60 mL/min | | BAHRAINI | | | + + + + | EGFR NON | >60 | >60 mL/min | | -BAHRAINI | | | + + + + [...] | + + + | Blood | [facility]ORY [facility], [facility] [address] [facility] | | | [place] [address] | + + + + + | [...] | + + + | Blood | [facility], CORE [address] [facility] | | | [place] [address] | + + + + + | [...] | >60 | >60 mL/min | | BAHRAINI | | | + + + + | EGFR NON | >60 | >60 mL/min | | -BAHRAINI | | | + + + + [...] | + + + | Blood | [facility], CORE [address] [facility] | | | [place] [address] | + + + + + | [...] | | [facility] OF CARDIOLOGY [address] [place] [address] | | | [place] [address] | + + + CT HEAD WO CONTRAST (11/07/2017 3:43 PM) + + + | Specimen | Performing Laboratory | + + + | | [facility] RAD[facility]OLOGY VOICE RECOGNITION 2 | + + [...] Laboratory | + + + | | [facility] [address] [facility] | | | [place] [address] | + + + RENAL FUNCTION SET [...] | >60 | >60 mL/min | | BAHRAINI | | | + + + + | EGFR NON | >60 | >60 mL/min | | -BAHRAINI | | | + + + + [...] | + + + | Blood | [facility], CORE [address] [place] [address] | | | [place] [address] | + + + + + | [...] | + + + | Blood | [facility], CORE [address] [facility] | | | [place] [address] | + + + + + | [...] + + | PRODUCT UNIT # | [id number] | | + + + + | UNIT ABO | O | | + + + + | UNIT RH | POS | | + + + + | STATUS OF UNIT | Returned to Blood Bank | | + + + + | EXPIRATION DATE | [id number] | | + + + + | BLOOD TYPE BARCODE | 5100 | | + + + + | BLOOD PRODUCT CODE | [id number] | | + + + + + + + | Specimen | Performing Laboratory | + + + | | [facility] SERVICES, TRANSF[facility]ION MEDICINE [address] [facility] | | | [place] [address] | + + + PRODUCT - RED CELLS LEUKOREDUCED (11/06/2017 8:03 AM) + + + + | Component | Value | Ref Range | + + + + | PRODUCT DESCRIPTION | -1 RED BLOOD CELL ADENINE-SALINE ADDED | | | | LEUKOCYTE | | + + + + | PRODUCT UNIT # | [id number] | | + + + + | UNIT ABO | O | | + + + + | UNIT RH | POS | | + + + + | STATUS OF UNIT | Returned to Blood Bank | | + + + + | EXPIRATION DATE | [id number] | | + + + + | BLOOD TYPE BARCODE | 5100 | | + + + + | BLOOD PRODUCT CODE | [id number] | | + + + + + + + | Specimen | Performing Laboratory | + + + | | [facility] SERVICES, TRANSFUSION MEDICINE [address] [place] [address] | | | [place] [address] | + + + CBC (HEMOGRAM) ONLY [...] | + + + | Blood | [facility], CORE [address] [facility] | | | [place] [address] | + + + + + | [...] | | ------ CBC (HEMOGRAM) | | ONLY[[id number]] Abnormal Final | | result Please view [...] | + + + | Blood | [facility] SERVICES, [facility] [address] [facility] [address] | | | [place] [address] | + + + + + | [...] | >60 | >60 mL/min | | BAHRAINI | | | + + + + | EGFR NON | >60 | >60 mL/min | | -BAHRAINI | | | + + + + [...] | + + + | Blood | [facility], CORE [address] [facility] | | | [place] [address] | + + + + + | [...] Attending | | Surgeon: Magdiel Stock MD Slag Mixer(s): Rg Aiken MD | | Preoperative Diagnoses: [...] head was placed in a horseshoe head housekeeper with his C-collar still | | attached [...] the incision down to the cranium. Once [place] | | skull was reached circumferentially around the prior incision, a #1 Donaldson was used | | to subperiosteally dissect [...] note for this encounter.Sonal Nunez, | | [id number] [place], [place] | | [phone] Orina, MDJB/TAHIRLDD: 11/05/2017 20:38:01DT: 11/06/2017 | | 00:27:33Job #: [id number] | |HATTIE/MODL | | | | | | /[id number] | + + CT HEAD WO CONTRAST [...] | nursing staff. Surgeon: Magdiel Stock MD Slag Mixer: Rg Aiken MD | | Pre-op Diagnosis: [...] | MD Attila PGY-4 Neurological Surgery Pager [phone] | + + CAPILLARY BLOOD GLUCOSE (NO CHG), POC (11/05/2017 7:11 PM) + +---------+ + | Component | Value | Ref Range | + +---------+ + | BLOOD GLUCOSE, POC | 129 (H) | 70 - 99 mg/dL | + +---------+ + + + + | Specimen | Performing Laboratory | + + + | | [facility] [address] | | | [place] [address] | + + + CAPILLARY BLOOD GLUCOSE (NO CHG), POC (11/05/2017 1:33 PM) + +---------+ + | Component | Value | Ref Range | + +---------+ + | BLOOD GLUCOSE, POC | 103 (H) | 70 - 99 mg/dL | + +---------+ + + + + | Specimen | Performing Laboratory | + + + | | [facility] [address] | | | [place] [address] | + + + VASC LAB VENOUS [...] | + + + | Blood | [facility], [address] | | | [place] [address] | + + + + + | [...] | + + + | Blood | [facility], CORE [address] [facility] [facility] | | | [place] [address] | + + + + + | [...] | >60 | >60 mL/min | | BAHRAINI | | | + + + + | EGFR NON | >60 | >60 mL/min | | -BAHRAINI | | | + + + + [...] | + + + | Blood | [facility], [address]ORE [address] [facility] | | | [place] [address] | + + + + + | [...] | + + + | Blood | [facility], CORE [address] [facility] | | | [place] [address] | + + + + + | [...] | | ------ CBC (HEMOGRAM) | | ONLY[[id number]] Abnormal Final | | result Please view [...] + + | PRODUCT UNIT # | [id number] | | + + + + | UNIT ABO | O | | + + + + | UNIT RH | POS | | + + + + | STATUS OF UNIT | Returned to Blood Bank | | + + + + | EXPIRATION DATE | [id number] | | + + + + | BLOOD TYPE BARCODE | 5100 | | + + + + | BLOOD PRODUCT CODE | [id number] | | + + + + + + + | Specimen | Performing Laboratory | + + + | | [facility], [facility]SF[facility]ION MEDICINE [address] | | | [place] [address] | + + + PRODUCT - RED CELLS LEUKOREDUCED (11/04/2017 8:19 PM) + + + + | Component | Value | Ref Range | + + + + | PRODUCT DESCRIPTION | -1 RED BLOOD CELL ADENINE-SALINE ADDED | | | | LEUKOCYTE | | + + + + | PRODUCT UNIT # | [id number] | | + + + + | UNIT ABO | O | | + + + + | UNIT RH | POS | | + + + + | STATUS OF UNIT | Returned to Blood Bank | | + + + + | EXPIRATION DATE | [id number] | | + + + + | BLOOD TYPE BARCODE | 5100 | | + + + + | BLOOD PRODUCT CODE | [id number] | | + + + + + + + | Specimen | Performing Laboratory | + + + | | [facility], [facility] [address] | | | [place] [facility] [place] [address] | + + + CBC (HEMOGRAM) ONLY [...] | + + + | Blood | [facility], [address]ORE [address] [facility] | | | [place] [address] | + + + + + | [...] | + + + | Blood | [facility], [facility] MEDICINE [address] [facility] | | | [place] [address] | + + + ABO & RH [...] | + + + | Blood | [facility], [facility]ICINE [address] | | | [place] [address] | + + + TYPE AND SCREEN [...] | ------ ABO & RH | | TYPE[[id number]] F | | inal result ANTIBODY | | SCREEN[[id number]] Fin | | al result Please view [...] | + + + | Blood | [facility], [address] | | | [place] [address] | + + + + + | [...] | | ------ CBC (HEMOGRAM) | | ONLY[[id number]] Abnormal Final | | result Please view [...] Laboratory | + + + | | [facility] [address] [place] [address] | | | [place] [address] | + + + CALCIUM, IONIZED, WHOLE [...] | + + + | Blood | [facility], CORE [address] [place] [address] | | | [place] [address] | + + + C-REACTIVE PROTEIN (11/04/2017 5:59 AM) + +-------+ + | Component | Value | Ref Range | + +-------+ + | C-REACTIVE PROTEIN | <2.9 | <10.0 mg/L | + +-------+ + + + + | Specimen | Performing Laboratory | + + + | Blood | [facility], CORE [address] [facility] | | | [place] [address] | + + + + + | [...] | + + + | Blood | [facility] [address] [place], [place] | | | [address] | + + + TRIGLYCERIDES, PLASMA (11/04/2017 5:59 AM) + +-------+ + | Component | Value | Ref Range | + +-------+ + | TRIGLYCERIDES | 111 | <150 mg/dL | + +-------+ + + + + | Specimen | Performing Laboratory | + + + | Blood | [facility], CORE [address] [facility] | | | [place] [address] | + + + + + | [...] | + + + | Blood | [facility], CORE [address] | | | [place] [address] | + + + RENAL FUNCTION SET [...] | >60 | >60 mL/min | | BAHRAINI | | | + + + + | EGFR NON | >60 | >60 mL/min | | -BAHRAINI | | | + + + + [...] | + + + | Blood | [facility], CORE [address] [facility] | | | [place] [address] | + + + + + | [...] | + + + | Blood | [facility], CORE [address] [facility] | | | [place] [address] | + + + + + | [...] | + + + | Blood | [facility], CORE [address] [facility] | | | [place] [address] | + + + + + | [...] | >60 | >60 mL/min | | BAHRAINI | | | + + + + | EGFR NON | >60 | >60 mL/min | | -BAHRAINI | | | + + + + [...] | + + + | Blood | [facility], CORE [address] [facility] | | | [place] [address] | + + + + + | [...] | + + + | Blood | [facility], CORE [address] | | | [place] [address] | + + + + + | [...] | >60 | >60 mL/min | | BAHRAINI | | | + + + + | EGFR NON | >60 | >60 mL/min | | -BAHRAINI | | | + + + + [...] | + + + | Blood | [facility], CORE [address] [place] [address] | | | [place] [address] | + + + + + | [...] | | [facility] OF CARDIOLOGY [address] [place] [address] | | | [place] [address] | + + + MAGNESIUM, PLASMA (11/01/2017 4:40 AM) + +-------+ + | Component | Value | Ref Range | + +-------+ + | MAGNESIUM,PLASMA | 2.0 | 1.6 - 2.6 mg/dL | + +-------+ + + + + | Specimen | Performing Laboratory | + + + | Blood | [facility], CORE [address] [facility] | | | [place] [address] | + + + + + | [...] | >60 | >60 mL/min | | BAHRAINI | | | + + + + | EGFR NON | >60 | >60 mL/min | | -BAHRAINI | | | + + + + [...] | + + + | Blood | [facility], CORE [address] | | | [place] [address] | + + + + + | [...] Laboratory | + + + | | [facility] VOICE RECOGNITION 2 | + + [...] Laboratory | + + + | | [facility] [address] [place] [address] | | | [place] [address] | + + + RENAL FUNCTION SET [...] | >60 | >60 mL/min | | BAHRAINI | | | + + + + | EGFR NON | >60 | >60 mL/min | | -BAHRAINI | | | + + + + [...] | + + + | Blood | [facility], CORE [address] [place] [address] | | | [place] [address] | + + + + + | [...] | + + + | Blood | [facility], CORE [address] [facility] | | | [place] [address] | + + + + + | [...] [address] | | | [place] [address] | + + + MAGNESIUM, PLASMA (10/30/2017 5:29 AM) + +-------+ + | Component | Value | Ref Range | + +-------+ + | MAGNESIUM,PLASMA | 1.8 | 1.6 - 2.6 mg/dL | + +-------+ + + + + | Specimen | Performing Laboratory | + + + | Blood | [facility], CORE [address] [facility] | | | [place] [address] | + + + + + | [...] | >60 | >60 mL/min | | BAHRAINI | | | + + + + | EGFR NON | >60 | >60 mL/min | | -BAHRAINI | | | + + + + [...] | + + + | Blood | [facility], CORE [address] [facility] | | | [place] [address] | + + + + + | [...] Laboratory | + + + | | [facility] | + + + + [...] Note | + + | 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, Outfitter[employer] In Interface - 10/29/2017 12:13 PM PDT [...] [facility] POINT OF CARE TESTS [address] [facility] [[email or web address] [address] | | | [place] [address] | + + + MAGNESIUM, PLASMA (10/29/2017 6:19 AM) + +-------+ + | Component | Value | Ref Range | + +-------+ + | MAGNESIUM,PLASMA | 1.9 | 1.6 - 2.6 mg/dL | + +-------+ + + + + | Specimen | Performing Laboratory | + + + | Blood | [facility], CORE [address] | | | [place] [address] | + + + + + | [...] | >60 | >60 mL/min | | BAHRAINI | | | + + + + | EGFR NON | >60 | >60 mL/min | | -BAHRAINI | | | + + + + [...] | + + + | Blood | [facility], CORE [address] [place] [address] | | | [place] [address] | + + + + + | [...] [address] | | | [place] [address] | + + + 12 LEAD ECG [...] Laboratory | + + + | | [facility] [address] [place] [address] | | | [place] [address] | + + + CAPILLARY BLOOD GLUCOSE [...] TESTS [address] | | | [place] [address] | + + + CAPILLARY BLOOD GLUCOSE (NO CHG), POC (10/28/2017 6:43 AM) + +---------+ + | Component | Value | Ref Range | + +---------+ + | BLOOD GLUCOSE, POC | 127 (H) | 70 - 99 mg/dL | + +---------+ + + + + | Specimen | Performing Laboratory | + + + | | [facility], POINT OF CARE TESTS [address] | | | [place] [address] | + + + C-REACTIVE PROTEIN (10/28/2017 5:29 AM) + + + + | Component | Value | Ref Range | + + + + | C-REACTIVE PROTEIN | 17.9 (H) | <10.0 mg/L | + + + + + + + | Specimen | Performing Laboratory | + + + | Blood | [facility], CORE [address] | | | [place] [address] | + + + + + | [...] | + + + | Blood | [facility] [address] [place], [place] | | | [address] | + + + TRIGLYCERIDES, PLASMA (10/28/2017 5:29 AM) + +-------+ + | Component | Value | Ref Range | + +-------+ + | TRIGLYCERIDES | 117 | <150 mg/dL | + +-------+ + + + + | Specimen | Performing Laboratory | + + + | Blood | [facility], CORE [address] | | | [place] [address] | + + + + + | [...] | + + + | Blood | [facility], CORE [address] [facility] | | | [place] [address] | + + + LIVER SET (AST,ALT,BILI [...] | + + + | Blood | [facility], CORE [address] [place] [address] | | | [place] [address] | + + + RENAL FUNCTION SET [...] | >60 | >60 mL/min | | BAHRAINI | | | + + + + | EGFR NON | >60 | >60 mL/min | | -BAHRAINI | | | + + + + [...] | + + + | Blood | [facility], CORE [address] [facility] | | | [place] [address] | + + + + + | [...] | + + + | Blood | [facility], CORE [address] [place] [address] | | | [place] [address] | + + + + + | [...] Laboratory | + + + | | [facility] POINT OF CARE TESTS [address] | | | [place] [address] | + + + CAPILLARY BLOOD GLUCOSE (NO CHG), POC (10/27/2017 6:48 PM) + +---------+ + | Component | Value | Ref Range | + +---------+ + | BLOOD GLUCOSE, POC | 128 (H) | 70 - 99 mg/dL | + +---------+ + + + + | Specimen | Performing Laboratory | + + + | | [facility] POINT OF [facility] TESTS [address] | | | [place] [address] | + + + CT ABDOMEN AND [...] Laboratory | + + + | | [facility] RAD[facility] VOICE RECOGNITION 2 | + + + + + | Narrative | + + | EXAM: TX CHEST PICC LINE CHECK HISTORY: picc done [...] Interface - 10/27/2017 6:29 PM PDT EXAM: TX CHEST | | PICC LINE CHECK HISTORY: [...] | | verifies correct patient, procedure, equipment, whanau support worker and site/side marked as | | required. [...] Brachial | | vein. Catheter lot number: [id number] with a length of 55 cm was [...] [address] | | | [place] [address] | + + + 12 LEAD ECG [...] Laboratory | + + + | | [facility] DEPT OF CARDIOLOGY [address] [facility] | | | [place] [address] | + + + CAPILLARY BLOOD GLUCOSE [...] TESTS [address] | | | [place] [address] | + + + MAGNESIUM, PLASMA (10/27/2017 4:30 AM) + +-------+ + | Component | Value | Ref Range | + +-------+ + | MAGNESIUM,PLASMA | 1.9 | 1.6 - 2.6 mg/dL | + +-------+ + + + + | Specimen | Performing Laboratory | + + + | Blood | [facility], CORE [address] | | | [place] [address] | + + + + + | [...] | >60 | >60 mL/min | | BAHRAINI | | | + + + + | EGFR NON | >60 | >60 mL/min | | -BAHRAINI | | | + + + + [...] | + + + | Blood | [facility], CORE [address] [facility] [address] | | | [place] [address] | + + + + + | [...] Laboratory | + + + | | [facility], POINT OF CARE TESTS [address] | | | [place] [address] | + + + CAPILLARY BLOOD GLUCOSE (NO CHG), POC (10/26/2017 11:58 AM) + +---------+ + | Component | Value | Ref Range | + +---------+ + | BLOOD GLUCOSE, POC | 110 (H) | 70 - 99 mg/dL | + +---------+ + + + + | Specimen | Performing Laboratory | + + + | | [facility] [place], POINT OF CARE TESTS [address] | | | [place] [address] | + + + CAPILLARY BLOOD GLUCOSE (NO CHG), POC (10/26/2017 5:57 AM) + +---------+ + | Component | Value | Ref Range | + +---------+ + | BLOOD GLUCOSE, POC | 102 (H) | 70 - 99 mg/dL | + +---------+ + + + + | Specimen | Performing Laboratory | + + + | | [facility] [place], POINT OF CARE TESTS [address] [facility] [[email or web address] [address] | | | [place] [address] | + + + MAGNESIUM, PLASMA (10/26/2017 5:13 AM) + +-------+ + | Component | Value | Ref Range | + +-------+ + | MAGNESIUM,PLASMA | 1.6 | 1.6 - 2.6 mg/dL | + +-------+ + + + + | Specimen | Performing Laboratory | + + + | Blood | [facility], CORE [address] [facility] | | | [place] [address] | + + + + + | [...] | >60 | >60 mL/min | | BAHRAINI | | | + + + + | EGFR NON | >60 | >60 mL/min | | -BAHRAINI | | | + + + + [...] | + + + | Blood | [facility], CORE [address] [facility] | | | [place] [address] | + + + + + | [...] + + + | | [facility] [place], POINT OF CARE TESTS [address] | | | [place] [address] | + + + BASIC METABOLIC SET [...] | >60 | >60 mL/min | | BAHRAINI | | | + + + + | EGFR NON | >60 | >60 mL/min | | -BAHRAINI | | | + + + + [...] | + + + | Blood | [facility], CORE [address] [facility] | | | [place] [address] | + + + + + | [...] + + + | | [facility] [place], POINT OF CARE TESTS [address] | | | [place] [address] | + + + 12 LEAD ECG [...] Laboratory | + + + | | [facility] [address] [place] [address] | | | [place] [address] | + + + CAPILLARY BLOOD GLUCOSE (NO CHG), POC (10/25/2017 3:35 AM) + +-------+ + | Component | Value | Ref Range | + +-------+ + | BLOOD GLUCOSE, POC | 87 | 70 - 99 mg/dL | + +-------+ + + + + | Specimen | Performing Laboratory | + + + | | [facility], POINT OF [facility] TESTS [address] | | | [place] [address] | + + + 12 LEAD ECG [...] Laboratory | + + + | | [facility] [address] [place] [address] | | | [place] [address] | + + + CALCIUM, IONIZED, WHOLE [...] | + + + | Blood | [facility], CORE [address] | | | [place], [place] [address] | + + + PREALBUMIN (10/24/2017 4:50 PM) + + + + | Component | Value | Ref Range | + + + + | PREALBUMIN | 14.7 (L) | 17.0 - 42.0 mg/dL | + + + + + + + | Specimen | Performing Laboratory | + + + | Blood | [facility] [place] [address] [facility] [address], [place] | | | [address] | + + + C-REACTIVE PROTEIN (10/24/2017 4:45 PM) + + + + | Component | Value | Ref Range | + + + + | C-REACTIVE PROTEIN | 16.0 (H) | <10.0 mg/L | + + + + + + + | Specimen | Performing Laboratory | + + + | Blood | [facility] [address] [facility] | | | [place] [address] | + + + + + | [...] | + + + | Blood | [facility], CORE [address] [place] [address] RD | | | [place] [address] | + + + TRIGLYCERIDES, PLASMA (10/24/2017 4:45 PM) + +-------+ + | Component | Value | Ref Range | + +-------+ + | TRIGLYCERIDES | 93 | <150 mg/dL | + +-------+ + + + + | Specimen | Performing Laboratory | + + + | Blood | [facility], CORE [address] | | | [place] [address] | + + + + + | [...] | + + + | Blood | [facility], CORE [address] [place] [address] | | | [facility] [address] | + + + ALKALINE PHOSPHATASE, PLASMA (10/24/2017 4:45 PM) + +---------+ + | Component | Value | Ref Range | + +---------+ + | ALK PHOS | 200 (H) | 56 - 119 U/L | + +---------+ + + + + | Specimen | Performing Laboratory | + + + | Blood | [facility], CORE [address] [facility] | | | [place] [address] | + + + BILIRUBIN DIRECT (10/24/2017 [...] | + + + | Blood | [facility], CORE [address] [facility] | | | [place] [address] | + + + BILIRUBIN TOTAL (10/24/2017 [...] | + + + | Blood | [facility], CORE [address] [facility] | | | [place] [address] | + + + PHOSPHORUS, PLASMA (10/24/2017 4:45 PM) + +-------+ + | Component | Value | Ref Range | + +-------+ + | PHOSPHORUS, PLASMA | 3.2 | 2.4 - 4.7 mg/dL | | (LAB) | | | + +-------+ + + + + | Specimen | Performing Laboratory | + + + | Blood | [facility], CORE [address] [place] [address] | | | [facility] [address] | + + + ALBUMIN, PLASMA (10/24/2017 4:45 PM) + +---------+ + | Component | Value | Ref Range | + +---------+ + | ALBUMIN, PLASMA | 2.6 (L) | 3.5 - 4.7 g/dL | | (LAB) | | | + +---------+ + + + + | Specimen | Performing Laboratory | + + + | Blood | [facility], CORE [address] [facility] | | | [place] [address] | + + + MAGNESIUM, PLASMA (10/24/2017 4:45 PM) + +-------+ + | Component | Value | Ref Range | + +-------+ + | MAGNESIUM,PLASMA | 1.7 | 1.6 - 2.6 mg/dL | + +-------+ + + + + | Specimen | Performing Laboratory | + + + | Blood | [facility], CORE [address] [facility] | | | [place] [address] | + + + + + | [...] | >60 | >60 mL/min | | BAHRAINI | | | + + + + | EGFR NON | >60 | >60 mL/min | | -BAHRAINI | | | + + + + [...] | + + + | Blood | [facility], CORE [address] [facility] | | | [place] [address] | + + + + + | [...] Procedure Note | | Indications:TPN Procedure location: Unit:[facility] Room: 4 Providers: Attending name: | | Attending physically present: No PICC Nurse name: Nery Sosa Pre-Procedure Consent: | | written consent obtained Consent given by: Next of kin Patient identity confirmed | | per protocol: Yes Team Pause: Immediatly prior to the procedure a pause per protocol | | was called. A pause verifies correct patient, procedure, equipment, whanau support worker | | and site/side marked as required. [...] Arm area Basilic vein. Catheter lot number: [id number] with a length of 55 cm | [...] Laboratory | + + + | | [facility] RAD[facility] VOICE RECOGNITION 2 | + + + + + | Narrative | + + | EXAM: TX CHEST 1 VIEW HISTORY: PICC placed-pt ready. [...] Note | + + | 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, [employer] In Interface - 10/24/2017 3:43 PM PDT EXAM: TX CHEST 1 | | VIEW HISTORY: PICC [...] Laboratory | + + + | | [facility], POINT OF CARE TESTS [address] | | | [place] [address] | + + + PROCEDURE NOTE (10/24/2017 [...] Surgical Critical Care, PGY7 | | Pager: [phone] | + + CAPILLARY BLOOD GLUCOSE (NO CHG), POC (10/24/2017 10:31 AM) + +-------+ + | Component | Value | Ref Range | + +-------+ + | BLOOD GLUCOSE, POC | 85 | 70 - 99 mg/dL | + +-------+ + + + + | Specimen | Performing Laboratory | + + + | | [facility], POINT OF CARE TESTS [address] | | | [place] [address] | + + + CAPILLARY BLOOD GLUCOSE [...] [address] | | | [place] [address] | + + + RENAL FUNCTION SET [...] | >60 | >60 mL/min | | BAHRAINI | | | + + + + | EGFR NON | >60 | >60 mL/min | | -BAHRAINI | | | + + + + [...] | + + + | Blood | [facility], CORE [address] | | | [place] [address] | + + + + + | [...] | + + + | Blood | [facility], CORE [address] [facility] | | | [place] [address] | + + + + + | [...] [address] | | | [place] [address] | + + + CBC AND AUTO [...] | + + + | Blood | [facility], CORE [address] [facility] | | | [place] [address] | + + + + + | [...] | >60 | >60 mL/min | | BAHRAINI | | | + + + + | EGFR NON | >60 | >60 mL/min | | -BAHRAINI | | | + + + + [...] | + + + | Blood | [facility]ORY [facility], CORE [address] | | | [place] [address] | + + + + + | [...] | ------ CBC AND AUTO | | DIFF[[id number]] Abnormal Final | | result Please view [...] + | | [facility] OF CARDIOLOGY [address] [place] [address] | | | [place] [address] | + + + IR GASTROSTOMY TUBE EXCHANGE (10/22/2017 2:42 PM) + + + | Specimen | Performing Laboratory | + + + | | [facility] VOICE RECOGNITION | + + + + + | Narrative | + + | Procedure: Gastrostomy tube exchange Primary attending dining server: Shade | | Bryn Goodwin Preoperative diagnosis: Malfunctioning Gastrostomy tube | | Postoperative diagnosis: Same Operations: Operation 1. Removal of existing | | Gastrostomy tube over a guide wire Operation 2. Placement of 24 Lebanese GABRIEL | | gastrostomy over guide wire [...] | | glide wire the new 24 Lebanese gastrostomy tube was inserted. The position of [...] Procedure: | | Gastrostomy tube exchangePrimary attending dining server: Shade Goodwin | | BrynPreoperative diagnosis: Malfunctioning Gastrostomy tubePostoperative diagnosis: | | SameOperations:Operation 1. Removal of existing Gastrostomy tube over a guide | | wireOperation 2. Placement of 24 Lebanese GABRIEL gastrostomy over guide wireNo sedation was [...] glide wire the | | new 24 Lebanese gastrostomy tube was inserted. The position of [...] stiff g lide wire the new 24 Lebanese | |gastrostomy tube was inserted. The position [...] Note | + + | 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, [employer] In Interface - 10/22/2017 10:34 AM PDT [...] | + + + | | [facility] [address] [place] [address] | | | [place] [address] | + + + CT ABDOMEN AND [...] Note | + + | 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, [employer] In Interface - 10/22/2017 8:06 AM [...] | + + + | Blood | [facility], CORE [address] [place] [address] | | | [place] [address] | + + + + + | [...] | >60 | >60 mL/min | | BAHRAINI | | | + + + + | EGFR NON | >60 | >60 mL/min | | -BAHRAINI | | | + + + + [...] | + + + | Blood | [facility], CORE [address] [facility] | | | [place] [address] | + + + + + | [...] | | ------ CBC (HEMOGRAM) | | ONLY[[id number]] Abnormal Final | | result Please view [...] Laboratory | + + + | | [facility] [address] [place] [address] | | | [place] [address] | + + + RENAL FUNCTION SET [...] | >60 | >60 mL/min | | BAHRAINI | | | + + + + | EGFR NON | >60 | >60 mL/min | | -BAHRAINI | | | + + + + [...] | + + + | Blood | [facility], CORE [address] [place] [address] | | | [place] [address] | + + + + + | [...] | + + + | Blood | [facility], CORE [address] [facility] | | | [place] [address] | + + + + + | [...] | | [facility] [address] [place] [address] | | | [place] [address] | + + + MAGNESIUM, PLASMA (10/18/2017 9:01 AM) + +-------+ + | Component | Value | Ref Range | + +-------+ + | MAGNESIUM,PLASMA | 1.9 | 1.6 - 2.6 mg/dL | + +-------+ + + + + | Specimen | Performing Laboratory | + + + | Blood | [facility], CORE [address] [facility] | | | [place] [address] | + + + + + | [...] | >60 | >60 mL/min | | BAHRAINI | | | + + + + | EGFR NON | >60 | >60 mL/min | | -BAHRAINI | | | + + + + [...] | + + + | Blood | [facility], CORE [address] [facility] | | | [place] [address] | + + + + + | [...] Laboratory | + + + | | [facility] [address] [place] [address] | | | [place] [address] | + + + RENAL FUNCTION SET [...] | >60 | >60 mL/min | | BAHRAINI | | | + + + + | EGFR NON | >60 | >60 mL/min | | -BAHRAINI | | | + + + + [...] | + + + | Blood | [facility], CORE [address] [facility] | | | [place] [address] | + + + + + | [...] | + + + | Blood | [facility], CORE [address] | | | [place] [address] | + + + + + | [...] Laboratory | + + + | | [facility] [address] [place] [address] | | | [place] [address] | + + + BASIC METABOLIC SET [...] | >60 | >60 mL/min | | BAHRAINI | | | + + + + | EGFR NON | >60 | >60 mL/min | | -BAHRAINI | | | + + + + [...] | + + + | Blood | [facility] [address] | | | [place] [address] | + + + + + | [...] | + + + | Blood | [facility], CORE [address] [place] [address] | | | [place] [address] | + + + + + | [...] | | ------ CBC (HEMOGRAM) | | ONLY[[id number]] Abnormal Final | | result Please view [...] Note | + + | 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, Outfittery In Interface - 10/15/2017 3:58 PM PDT [...] Laboratory | + + + | | [facility] [address] [place] [address] | | | [place] [address] | + + + CAPILLARY BLOOD GLUCOSE (NO CHG), POC (10/15/2017 6:01 AM) + +---------+ + | Component | Value | Ref Range | + +---------+ + | BLOOD GLUCOSE, POC | 134 (H) | 70 - 99 mg/dL | + +---------+ + + + + | Specimen | Performing Laboratory | + + + | | [facility] POINT OF CARE TESTS [address] | | | [place] [address] | + + + CBC (HEMOGRAM) ONLY [...] | + + + | Blood | [facility] SERVICES, [facility] [place] [address] [facility] | | | [place] [address] | + + + + + | [...] | | ------ CBC (HEMOGRAM) | | ONLY[[id number]] Abnormal Final | | result Please view [...] Laboratory | + + + | | [facility] - [facility]YUSH [facility], POINT OF CARE TESTS [address] | | | [place] [address] | + + + 12 LEAD ECG [...] Laboratory | + + + | | [facility] [address] [place] [address] | | | [place] [address] | + + + CBC (HEMOGRAM) ONLY [...] | + + + | Blood | [facility], CORE [address] [place] [address] RD | | | [place] [address] | + + + + + | [...] | >60 | >60 mL/min | | BAHRAINI | | | + + + + | EGFR NON | >60 | >60 mL/min | | -BAHRAINI | | | + + + + [...] | + + + | Blood | [facility], CORE [address] | | | [place] [address] | + + + + + | [...] | + + + | Blood | [facility], CORE [address] [facility] | | | [place], [place] [address] | + + + + + | [...] | | ------ CBC (HEMOGRAM) | | ONLY[[id number]] Abnormal Final | | result Please view [...] [address] | | | [place] [address] | + + + CAPILLARY BLOOD GLUCOSE [...] [address] | | | [place] [address] | + + + CBC (HEMOGRAM) ONLY [...] | + + + | Blood | [facility], CORE [address] [facility] | | | [place] [address] | + + + + + | [...] | >60 | >60 mL/min | | BAHRAINI | | | + + + + | EGFR NON | >60 | >60 mL/min | | -BAHRAINI | | | + + + + [...] | + + + | Blood | [facility], CORE [address] [facility] | | | [place] [address] | + + + + + | [...] | | ------ CBC (HEMOGRAM) | | ONLY[[id number]] Abnormal Final | | result Please view results for these tests on the | | individual orders. | + + OPERATION RECORD (10/12/2017 8:50 PM) + + | Procedure Note | + + | Pilar Cotto MD - 10/12/2017 8:50 PM PDT Date of Service: 10/12/2017 | | Attending Surgeon: Chaz Munoz MD Slag Mixer(s): Randell Dixon M.D., | | fellow. George [...] saline. We then | | placed a 19-Lebanese drain deep into the abscess cavity, tracking [...] 10/12/2017 19:50:06DT: 10/12/2017 20:50:54Job #: | | [id number] | + + X-RAY PORTABLE CHEST 1 VIEW (10/12/2017 7:50 PM) + + + | Specimen | Performing Laboratory | + + + | | [facility] VOICE RECOGNITION 2 | + + + + + | Narrative | + + | EXAM: TX CHEST 1 VIEW HISTORY: Evaluate endotracheal tube [...] Interface - 10/13/2017 9:04 AM PDT EXAM: TX CHEST 1 | | VIEW HISTORY: Evaluate [...] + + + | | [facility] [place], [facility] [address] | | | [place] [address] | + + + CT ABDOMEN AND [...] | + + + | Blood | [facility], CORE [address] [facility] | | | [place] [address] | + + + + + | [...] | >60 | >60 mL/min | | BAHRAINI | | | + + + + | EGFR NON | >60 | >60 mL/min | | -BAHRAINI | | | + + + + [...] | + + + | Blood | [facility], CORE [address] | | | [place] [address] | + + + + + | [...] | | ------ CBC (HEMOGRAM) | | ONLY[[id number]] Abnormal Final | | result Please view [...] | + + + | Blood | [facility], CORE [address] [facility] | | | [place] [address] | + + + + + | [...] Laboratory | + + + | | [facility] [address] [place] [address] | | | [place] [address] | + + + 12 LEAD ECG [...] Laboratory | + + + | | [facility] [address] [place] [address] | | | [place] [address] | + + + CBC (HEMOGRAM) ONLY [...] | + + + | Blood | [facility], CORE [address] [facility] | | | [place] [address] | + + + + + | [...] | + + + | Blood | [facility], CORE [address] [facility] | | | [place] [address] | + + + + + | [...] | >60 | >60 mL/min | | BAHRAINI | | | + + + + | EGFR NON | >60 | >60 mL/min | | -BAHRAINI | | | + + + + [...] | + + + | Blood | [facility], [facility] [place] [address] | | | [place] [address] | + + + + + | [...] | | ------ CBC (HEMOGRAM) | | ONLY[[id number]] Abnormal Final | | result Please view results for these tests on the | | individual orders. | + + PROCEDURE NOTE (10/10/2017 10:00 PM) + + | Narrative | + + | Darius Link MD 10/12/2017 11:11 AM OPERATIVE REPORT DATE OF | | OPERATION: 10/10/2017 ATTENDING SURGEON: 1. Dr. Munoz PEDIATRIC PSYCHOLOGIST: 1. Darius | | MD Nikolay INDICATIONS: Dysphagia and need for intermediate nutrition access | | PREOPERATIVE DIAGNOSIS: 1.Dysphagia and need for intermediate nutrition access | | POSTOPERATIVE DIAGNOSIS: 1.Same [...] to follow. | | [place] [id number] Chief Resident Neurosurgery | + + CBC [...] | + + + | Blood | [facility], CORE [address] [place] [address] | | | [place] [address] | + + + + + | [...] | | ------ CBC (HEMOGRAM) | | ONLY[[id number]] Abnormal Final | | result Please view [...] | >60 | >60 mL/min | | BAHRAINI | | | + + + + | EGFR NON | >60 | >60 mL/min | | -BAHRAINI | | | + + + + [...] | + + + | Blood | [facility], CORE [address] | | | [place] [address] | + + + + + | [...] | + + + | Blood | [facility], CORE [address] [facility] | | | [place] [address] | + + + + + | Narrative | + + | Reference range change effective 8/15/17. | + + OPERATION RECORD (10/10/2017 12:40 PM) + + | Procedure Note | + + | Magdiel Stock MD - 10/10/2017 12:40 PM PDT Date of Service: 10/10/2017 Attending | | Surgeon: Magdiel Stock MD Slag Mixer(s): Cecilia Hernandez, | | . Preoperative Diagnoses: [...] of purulent film, which was removed with yV 1. We also used a | | [...] the note for this encounter.Sonal Nunez MDOHSU [id number] [facility] | | [place] [phone] Orina, MDFAH/MODDIOND: | | 10/10/2017 11:52:15DT: 10/10/2017 12:40:41Job #: [id number] | | | | | |I was present for the critical portions of the procedure as described in the note for this encounter. | | | |Magdiel Stock MD | | | |Magdiel Stock MD | |[address] | |[address] [facility] | |[facility] | |[place] [address] | |[phone] | | | | | |Magdiel Stock MD | |FAH/MODL | | | | | | /[id number] | + + X-RAY ABDOMEN 1 VIEW [...] + | Tissue - Head | [facility] [place] [address] [place], [place] | | | [address] | + + + + + | [...] + + | Swab - Head | [facility] [place] [address] [place], [place] | | | [address] | + + + + + | [...] + + | Swab - Head | [facility] [address] [place], [place] | | | [address] | + + + + + | [...] + + | Swab - Head | [facility] [place] [address] [place], [place] | | | [address] | + + + + + | Narrative | + + | Culture Report: No acid fast bacteria isolated at 6 weeks. AFB Smear: AFB not | | detected | + + CULTURE, FUNGAL EXCEPT BLOOD, SKIN, HAIR, NAIL (10/10/2017 9:00 AM) + + + | Specimen | Performing Laboratory | + + + | Swab - Head | [facility] [place] [address] [place], [place] | | | [address] | + + + + + | [...] + + | Swab - Head | [facility] [address] [place], [place] | | | [address] | + + + + + | [...] + + | Swab - Head | [facility] [address] [place], [place] | | | [address] | + + + + + | [...] + + | Tissue - Head | [facility] [id number] [place] [address] | | | [address] | + + + + + | [...] + + | Tissue - Head | [facility] [id number] [place] [address] | | | [address] | + + + + + | [...] - Head | [facility] [place] [address] [place], [place] | | | [address] | + + + + + | [...] + + | Swab - Head | [facility] [address] [place], [place] | | | [address] | + + + + + | [...] + + | Swab - Head | [facility] [address] [place], [place] | | | [address] | + + + + + | Narrative | + + | Culture Report: No acid fast bacteria isolated at 6 weeks. AFB Smear: AFB not | | detected | + + CULTURE, FUNGAL EXCEPT BLOOD, SKIN, HAIR, NAIL (10/10/2017 8:38 AM) + + + | Specimen | Performing Laboratory | + + + | Swab - Head | [facility] [place] [address] [place], [place] | | | [address] | + + + + + | [...] + + | Swab - Head | [facility] [place] [address] [address] [place], [place] | | | [address] | + + + + + | [...] + + | Swab - Head | [facility] [place] [address] [place], [place] | | | [address] | + + + + + | Narrative | + + | Culture Report: No acid fast bacteria isolated at 6 weeks. AFB Smear: AFB not | | detected | + + CULTURE, FUNGAL EXCEPT BLOOD, SKIN, HAIR, NAIL (10/10/2017 8:31 AM) + + + | Specimen | Performing Laboratory | + + + | Swab - Head | [facility] [place] [id number] [place] [address] | | | [address] | + + + + + | [...] + + | Swab - Head | [facility] [place] [address] [place], [place] | | | [address] | + + + + + | [...] + + | Swab - Head | [facility] [place] [address] [facility] [address], [place] | | | [address] | + + + + + | Narrative | + + | Culture Report: No acid fast bacteria isolated at 6 weeks. AFB Smear: AFB not | | detected | + + CT HEAD WO CONTRAST (10/10/2017 3:01 AM) + + + | Specimen | Performing Laboratory | + + + | | [facility] VOICE RECOGNITION 2 | + + [...] | + + + | Blood | [facility], CORE [address] [facility] | | | [place] [address] | + + + CBC (HEMOGRAM) ONLY [...] | + + + | Blood | [facility], CORE [address] [facility] | | | [place] [address] | + + + + + | [...] | | ------ CBC (HEMOGRAM) | | ONLY[[id number]] Abnormal Final | | result Please view [...] | + + + | Blood | [facility], CORE [address] [facility] | | | [place] [address] | + + + + + | [...] | >60 | >60 mL/min | | BAHRAINI | | | + + + + | EGFR NON | >60 | >60 mL/min | | -BAHRAINI | | | + + + + [...] | + + + | Blood | [facility], CORE [address] [facility] | | | [facility] [address] | + + + + + | [...] Laboratory | + + + | | [facility] [address] [place] [address] | | | [place] [address] | + + + PRODUCT - RED CELLS LEUKOREDUCED (10/09/2017 5:12 PM) + + + + | Component | Value | Ref Range | + + + + | PRODUCT DESCRIPTION | -1 RED BLOOD CELL ADENINE-SALINE ADDED | | | | LEUKOCYTE | | + + + + | PRODUCT UNIT # | [id number] | | + + + + | UNIT ABO | O | | + + + + | UNIT RH | POS | | + + + + | STATUS OF UNIT | Returned to Blood Bank | | + + + + | EXPIRATION DATE | [id number] | | + + + + | BLOOD TYPE BARCODE | 5100 | | + + + + | BLOOD PRODUCT CODE | [id number] | | + + + + + + + | Specimen | Performing Laboratory | + + + | | [facility], TRANSFUSION MEDICINE [address] [facility] | | | [place] [address] | + + + PRODUCT - RED CELLS LEUKOREDUCED (10/09/2017 5:12 PM) + + + + | Component | Value | Ref Range | + + + + | PRODUCT DESCRIPTION | -1 RED BLOOD CELL ADENINE-SALINE ADDED | | | | LEUKOCYTE | | + + + + | PRODUCT UNIT # | [id number] | | + + + + | UNIT ABO | O | | + + + + | UNIT RH | POS | | + + + + | STATUS OF UNIT | Returned to Blood Bank | | + + + + | EXPIRATION DATE | [id number] | | + + + + | BLOOD TYPE BARCODE | 5100 | | + + + + | BLOOD PRODUCT CODE | [id number] | | + + + + + + + | Specimen | Performing Laboratory | + + + | | [facility], TRANSFUSION MEDICINE [address] | | | [place] [address] | + + + ANTIBODY IDENTIFICATION (10/09/2017 5:01 PM) + + + + | Component | Value | Ref Range | + + + + | ANTIBODY 1 | Antibody present, unable to identify | | + + + + + + + | Specimen | Performing Laboratory | + + + | Blood | [facility], TRANSFUSION MEDICINE [address] | | | [place] [address] | + + + ANTIBODY SCREEN (10/09/2017 5:01 PM) + + + + | Component | Value | Ref Range | + + + + | Antibody Screen | Positive | | + + + + + + + | Specimen | Performing Laboratory | + + + | Blood | [facility] SERVICES, TRANSFUSION MEDICINE [address] | | | [place] [address] | + + + ABO & RH [...] | + + + | Blood | [facility], TRANSFUSION MEDICINE [address] [facility] | | | [place] [address] | + + + TYPE AND SCREEN [...] | ------ ABO & RH | | TYPE[[id number]] F | | inal result ANTIBODY | | SCREEN[[id number]] Fin | | al result Please view [...] | + + + | Blood | [facility] SERVICES, CORE [address] [place] [address] | | | [place] [address] | + + + + + | [...] Laboratory | + + + | | [facility] [address] [place] [address] | | | [place] [address] | + + + [facility] LAB VENOUS DUPLEX LOWER EXTREMITY BILAT COMP (10/08/2017 10:05 AM) + + + | Specimen | Performing Laboratory | + + + | | [facility] US | + + + [...] Note | + + | 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, Picomize Res In Interface - 10/08/2017 10:47 AM [...] [address] | | | [place] [address] | + + + CBC (HEMOGRAM) ONLY [...] | + + + | Blood | [facility], CORE [address] [facility] | | | [place] [address] | + + + + + | [...] | + + + | Blood | [facility], CORE [address] [facility] | | | [place] [address] | + + + + + | [...] | | ------ CBC (HEMOGRAM) | | ONLY[[id number]] Abnormal Final | | result Please view [...] | >60 | >60 mL/min | | BAHRAINI | | | + + + + | EGFR NON | >60 | >60 mL/min | | -BAHRAINI | | | + + + + [...] | + + + | Blood | [facility], CORE [address] [facility] | | | [facility] [address] | + + + + + | [...] [address] | | | [place] [address] | + + + CAPILLARY BLOOD GLUCOSE (NO CHG), POC (10/07/2017 10:30 PM) + +---------+ + | Component | Value | Ref Range | + +---------+ + | BLOOD GLUCOSE, POC | 173 (H) | 70 - 99 mg/dL | + +---------+ + + + + | Specimen | Performing Laboratory | + + + | | [facility], POINT OF CARE TESTS [address] | | | [place] [address] | + + + CAPILLARY BLOOD GLUCOSE (NO CHG), POC (10/07/2017 6:05 PM) + +---------+ + | Component | Value | Ref Range | + +---------+ + | BLOOD GLUCOSE, POC | 129 (H) | 70 - 99 mg/dL | + +---------+ + + + + | Specimen | Performing Laboratory | + + + | | [facility] [place], POINT OF CARE TESTS [address] | | | [place] [address] | + + + CAPILLARY BLOOD GLUCOSE [...] [address] | | | [place] [address] | + + + CAPILLARY BLOOD GLUCOSE [...] [address] | | | [place] [address] | + + + CBC (HEMOGRAM) ONLY [...] | + + + | Blood | [facility], CORE [address] [facility] | | | [place] [address] | + + + + + | [...] | + + + | Blood | [facility] SERVICES, CORE [address] [facility] | | | [place] [address] | + + + + + | [...] | | ------ CBC (HEMOGRAM) | | ONLY[[id number]] Abnormal Final | | result Please view [...] | >60 | >60 mL/min | | BAHRAINI | | | + + + + | EGFR NON | >60 | >60 mL/min | | -BAHRAINI | | | + + + + [...] | + + + | Blood | [facility], CORE [address] [facility] | | | [place] [address] | + + + + + | [...] [address] | | | [place] [address] | + + + CAPILLARY BLOOD GLUCOSE (NO CHG), POC (10/06/2017 6:03 PM) + +---------+ + | Component | Value | Ref Range | + +---------+ + | BLOOD GLUCOSE, POC | 107 (H) | 70 - 99 mg/dL | + +---------+ + + + + | Specimen | Performing Laboratory | + + + | | [facility], POINT [facility]ARE TESTS [address] | | | [place] [address] | + + + 12 LEAD ECG [...] | | [facility] OF CARDIOLOGY [address] [facility] | | | [place] [address] | + + + CAPILLARY BLOOD GLUCOSE [...] [address] | | | [place] [address] | + + + CBC (HEMOGRAM) ONLY [...] | + + + | Blood | [facility], CORE [address] [facility] | | | [place] [address] | + + + + + | [...] | + + + | Blood | [facility], CORE [address] [facility] | | | [place] [address] | + + + + + | [...] | | ------ CBC (HEMOGRAM) | | ONLY[[id number]] Abnormal Final | | result Please view [...] | >60 | >60 mL/min | | BAHRAINI | | | + + + + | EGFR NON | >60 | >60 mL/min | | -BAHRAINI | | | + + + + [...] | + + + | Blood | [facility] SERVICES, CORE [address] | | | [place] [address] | + + + + + | [...] + + + | | [facility] [place] [place], POINT OF CARE TESTS [address] | | | [place] [address] | + + + CAPILLARY BLOOD GLUCOSE (NO CHG), POC (10/06/2017 1:04 AM) + +-------+ + | Component | Value | Ref Range | + +-------+ + | BLOOD GLUCOSE, POC | 91 | 70 - 99 mg/dL | + +-------+ + + + + | Specimen | Performing Laboratory | + + + | | [facility] [place], POINT OF CARE TESTS [address] | | | [place] [address] | + + + CAPILLARY BLOOD GLUCOSE (NO CHG), POC (10/05/2017 6:43 PM) + +---------+ + | Component | Value | Ref Range | + +---------+ + | BLOOD GLUCOSE, POC | 118 (H) | 70 - 99 mg/dL | + +---------+ + + + + | Specimen | Performing Laboratory | + + + | | [facility] [place], POINT OF CARE TESTS [address] | | | [place] [address] | + + + CAPILLARY BLOOD GLUCOSE [...] TESTS [address] | | | [place] [address] | + + + 12 LEAD ECG [...] Laboratory | + + + | | [facility] [address] [place] [address] | | | [place] [address] | + + + CBC (HEMOGRAM) ONLY [...] | + + + | Blood | [facility], CORE [address] [facility] | | | [place] [address] | + + + + + | [...] | + + + | Blood | [facility], CORE [address] [place] | | | [place] [address] | + + + + + | [...] | | ------ CBC (HEMOGRAM) | | ONLY[[id number]] Abnormal Final | | result Please view [...] | >60 | >60 mL/min | | BAHRAINI | | | + + + + | EGFR NON | >60 | >60 mL/min | | -BAHRAINI | | | + + + + [...] | + + + | Blood | [facility] [address] | | | [place] [address] | + + + + + | [...] Laboratory | + + + | | [facility], POINT OF CARE TESTS [address] | | | [place] [address] | + + + CAPILLARY BLOOD GLUCOSE [...] [address] | | | [place] [address] | + + + CAPILLARY BLOOD GLUCOSE (NO CHG), POC (10/04/2017 5:47 PM) + +---------+ + | Component | Value | Ref Range | + +---------+ + | BLOOD GLUCOSE, POC | 123 (H) | 70 - 99 mg/dL | + +---------+ + + + + | Specimen | Performing Laboratory | + + + | | [facility] [place], POINT OF CARE TESTS [address] | | | [place] [address] | + + + CAPILLARY BLOOD GLUCOSE (NO CHG), POC (10/04/2017 12:30 PM) + +---------+ + | Component | Value | Ref Range | + +---------+ + | BLOOD GLUCOSE, POC | 137 (H) | 70 - 99 mg/dL | + +---------+ + + + + | Specimen | Performing Laboratory | + + + | | [facility] [place], POINT OF CARE TESTS [address] | | | [place] [address] | + + + CAPILLARY BLOOD GLUCOSE (NO CHG), POC (10/04/2017 5:55 AM) + +---------+ + | Component | Value | Ref Range | + +---------+ + | BLOOD GLUCOSE, POC | 128 (H) | 70 - 99 mg/dL | + +---------+ + + + + | Specimen | Performing Laboratory | + + + | | [facility], POINT OF CARE TESTS [address] | | | [place] [address] | + + + CBC (HEMOGRAM) ONLY [...] | + + + | Blood | [facility], CORE [address] [facility] | | | [place] [address] | + + + + + | [...] | + + + | Blood | [facility], CORE [address] | | | [place] [address] | + + + + + | [...] | | ------ CBC (HEMOGRAM) | | ONLY[[id number]] Abnormal Final | | result Please view [...] | >60 | >60 mL/min | | BAHRAINI | | | + + + + | EGFR NON | >60 | >60 mL/min | | -BAHRAINI | | | + + + + [...] | + + + | Blood | [facility], [facility] [address] [facility] [address] | | | [place] [address] | + + + + + | [...] Laboratory | + + + | | [facility], POINT OF CARE TESTS [address] | | | [place] [address] | + + + CAPILLARY BLOOD GLUCOSE [...] [address] | | | [place] [address] | + + + URINE, MICROSCOPIC EXAM [...] + | Urine - Clean catch | [facility], CORE [address] [place] [address] RD | | | [place] [address] | + + + RPR SERUM (10/03/2017 3:36 PM) + + + + | Component | Value | Ref Range | + + + + | RPR SRM QUAL | Non ReactiveComment: Rapid Plasma Reagin | Non Reactive | | | screening test is Non-Reactive. No further | | | | reflex testing is required.Performed by | | | | [employer],[address] [place] [address] | | | | [id number] [address] | | | | MD Arcadio, Lab. Director | | | |[email or web address][employer], Gui Ervin MD, Lab. Director | | + + + + + + + | Specimen | Performing Laboratory | + + + | Blood | [facility] [address] [facility] | | | [place] [address] | + + + VITAMIN B-12 (10/03/2017 [...] | + + + | Blood | [facility], CORE [address] [facility] | | | [place] [address] | + + + TSH (10/03/2017 3:36 PM) + + + + | Component | Value | Ref Range | + + + + | TSH | 0.33 (L) | 0.46 - 5.56 mIU/L | + + + + + + + | Specimen | Performing Laboratory | + + + | Blood | [facility], CORE [address] [facility] | | | [place] [address] | + + + + + | [...] | + + + | Blood | [facility], SPECIAL IMM + [facility] | | | [place] [address] | + + + + + | Narrative | + + | HIV-1 p24 Ag and HIV-1,2 Ab not detected. Test modified from original | | under sheriff's approved specifications. The performance of the [facility] HIV [employer]bo | | test, with or [...] [address] | | | [place] [address] | + + + CAPILLARY BLOOD GLUCOSE [...] [address] | | | [place] [address] | + + + CBC (HEMOGRAM) ONLY [...] | + + + | Blood | [facility], CORE [address] | | | [facility] [address] | + + + + + | [...] | + + + | Blood | [facility]. [facility], CORE [address] [place] [address] | | | [place] [address] | + + + + + | [...] | | ------ CBC (HEMOGRAM) | | ONLY[[id number]] Abnormal Final | | result Please view [...] | >60 | >60 mL/min | | BAHRAINI | | | + + + + | EGFR NON | >60 | >60 mL/min | | -BAHRAINI | | | + + + + [...] | + + + | Blood | [facility], CORE [address] | | | [place] [address] | + + + + + | [...] [address] | | | [place] [address] | + + + X-RAY SPINE CERVICAL 2 VIEWS (10/02/2017 10:32 PM) + + + | Specimen | Performing Laboratory | + + + | | [facility] VOICE RECOGNITION 2 | + + [...] [address] | | | [place] [address] | + + + 12 LEAD ECG [...] Laboratory | + + + | | [facility] [address] [place] [address] | | | [place] [address] | + + + PROCEDURE NOTE (10/02/2017 [...] Laboratory | + + + | | [facility] VOICE RECOGNITION 2 | + + + + + | Narrative | + + | EXAM: TX CHEST 1 VIEW HISTORY: Evaluate PICC placement [...] Interface - 10/02/2017 2:07 PM PDT EXAM: TX CHEST 1 | | VIEW HISTORY: Evaluate [...] | + + + | | SELENA GNEAO, POINT OF CARE TESTS [address] | | | [place] [address] | + + + X-RAY PORTABLE CHEST 1 VIEW (10/02/2017 8:56 AM) + + + | Specimen | Performing Laboratory | + + + | | [facility] VOICE RECOGNITION 2 | + + + + + | Narrative | + + | EXAM: TX CHEST 1 VIEW HISTORY: new leukocytosis, eval [...] Interface - 10/02/2017 10:27 AM PDT EXAM: TX CHEST 1 | | VIEW HISTORY: new [...] Laboratory | + + + | | [facility] [facility], POINT OF CARE TESTS [address] | | | [place] [address] | + + + CBC (HEMOGRAM) ONLY [...] | + + + | Blood | [facility], [facility] [address] [facility] | | | [place] [address] | + + + + + | [...] | + + + | Blood | [facility], CORE [address] | | | [place] [address] | + + + + + | [...] | | ------ CBC (HEMOGRAM) | | ONLY[[id number]] Abnormal Final | | result Please view [...] | >60 | >60 mL/min | | BAHRAINI | | | + + + + | EGFR NON | >60 | >60 mL/min | | -BAHRAINI | | | + + + + [...] | + + + | Blood | [facility], CORE [address] [facility] | | | [place] [address] | + + + + + | [...] Laboratory | + + + | | [facility], POINT OF [facility] TESTS [address] | | | [place] [address] | + + + CAPILLARY BLOOD GLUCOSE [...] [address] | | | [place] [address] | + + + X-RAY ABD LTD FEEDING TUBE EVAL (10/01/2017 1:23 PM) + + + | Specimen | Performing Laboratory | + + + | | [facility] VOICE RECOGNITION 2 | + + [...] |Preliminary: Edelmira Parsons MD | |Dictation initiated: dEelmira Parsons MD 10/01/2017 2:08 PM | + [...] [address] | | | [place] [address] | + + + VASC LAB VENOUS DUPLEX LOWER EXTREMITY BILAT COMP (10/01/2017 11:14 AM) + + + | Specimen | Performing Laboratory | + + + | | [facility] | + + + + [...] Note | + + | 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, Outfittery In Interface - 10/01/2017 11:34 AM PDT [...] Laboratory | + + + | | [facility] [place], POINT OF CARE TESTS [address] | | | [place] [address] | + + + CBC (HEMOGRAM) ONLY [...] | + + + | Blood | [facility], CORE [address] [facility] | | | [place] [address] | + + + + + | [...] | + + + | Blood | [facility], CORE [address] | | | [place] [address] | + + + + + | [...] | | ------ CBC (HEMOGRAM) | | ONLY[[id number]] Abnormal Final | | result Please view [...] | >60 | >60 mL/min | | BAHRAINI | | | + + + + | EGFR NON | >60 | >60 mL/min | | -BAHRAINI | | | + + + + [...] | + + + | Blood | [facility], CORE [address] | | | [place] [address] | + + + + + | [...] [address] | | | [place] [address] | + + + CAPILLARY BLOOD GLUCOSE [...] [address] | | | [place] [address] | + + + 12 LEAD ECG [...] + | | [facility] CARDIOLOG[facility] [address] [place] [address] | | | [place] [address] | + + + CT HEAD WO CONTRAST (09/30/2017 1:02 PM) + + + | Specimen | Performing Laboratory | + + + | | [facility] VOICE RECOGNITION 2 | + + [...] [address] | | | [place] [address] | + + + CAPILLARY BLOOD GLUCOSE (NO CHG), POC (09/30/2017 6:26 AM) + +---------+ + | Component | Value | Ref Range | + +---------+ + | BLOOD GLUCOSE, POC | 151 (H) | 70 - 99 mg/dL | + +---------+ + + + + | Specimen | Performing Laboratory | + + + | | [facility], POINT [facility] CARE TEST[facility] [address] | | | [place] [address] | + + + CBC (HEMOGRAM) ONLY [...] | + + + | Blood | [facility], [facility] [address] [facility] [address] | | | [place] [address] | + + + + + | [...] | + + + | Blood | [facility], CORE [address] | | | [facility] [place] [address] | + + + + + | [...] | | ------ CBC (HEMOGRAM) | | ONLY[[id number]] Abnormal Final | | result Please view [...] | >60 | >60 mL/min | | BAHRAINI | | | + + + + | EGFR NON | >60 | >60 mL/min | | -BAHRAINI | | | + + + + [...] | + + + | Blood | [facility], CORE [address] | | | [place] [address] | + + + + + | [...] Laboratory | + + + | | [facility] [place], POINT OF CARE TESTS [address] | | | [place] [address] | + + + CAPILLARY BLOOD GLUCOSE (NO CHG), POC (09/29/2017 5:53 PM) + +---------+ + | Component | Value | Ref Range | + +---------+ + | BLOOD GLUCOSE, POC | 124 (H) | 70 - 99 mg/dL | + +---------+ + + + + | Specimen | Performing Laboratory | + + + | | [facility] [facility] POINT OF CARE TESTS [address] | | | [place] [address] | + + + CAPILLARY BLOOD GLUCOSE [...] [address] | | | [place] [address] | + + + 12 LEAD ECG [...] | + + + | | [facility] [address] [place] [address] | | | [place] [address] | + + + CAPILLARY BLOOD GLUCOSE [...] [address] | | | [place] [address] | + + + MAGNESIUM, PLASMA (09/29/2017 4:30 AM) + +-------+ + | Component | Value | Ref Range | + +-------+ + | MAGNESIUM,PLASMA | 2.1 | 1.6 - 2.6 mg/dL | + +-------+ + + + + | Specimen | Performing Laboratory | + + + | Blood | [facility], CORE [address] [place] [address] | | | [place] [address] | + + + + + | [...] | >60 | >60 mL/min | | BAHRAINI | | | + + + + | EGFR NON | >60 | >60 mL/min | | -BAHRAINI | | | + + + + [...] | + + + | Blood | [facility], CORE [address] | | | [place] [address] | + + + + + | [...] | + + + | Blood | [facility], CORE [address] | | | [place] [address] | + + + + + | [...] | | ------ CBC (HEMOGRAM) | | ONLY[[id number]] Abnormal Final | | result Please view [...] Laboratory | + + + | | OR[facility]ELLE GE[facility]O, POINT OF CARE TESTS [address] | | | [place] [address] | + + + CAPILLARY BLOOD GLUCOSE (NO CHG), POC (09/28/2017 5:26 PM) + +---------+ + | Component | Value | Ref Range | + +---------+ + | BLOOD GLUCOSE, POC | 112 (H) | 70 - 99 mg/dL | + +---------+ + + + + | Specimen | Performing Laboratory | + + + | | [facility], POINT [facility] [address] | | | [place] [address] | + + + CAPILLARY BLOOD GLUCOSE (NO CHG), POC (09/28/2017 1:24 PM) + +---------+ + | Component | Value | Ref Range | + +---------+ + | BLOOD GLUCOSE, POC | 100 (H) | 70 - 99 mg/dL | + +---------+ + + + + | Specimen | Performing Laboratory | + + + | | [facility] [place], POINT OF CARE TESTS [address] | | | [place] [address] | + + + 12 LEAD ECG [...] Laboratory | + + + | | [facility] [address] [place] [address] | | | [place] [address] | + + + CAPILLARY BLOOD GLUCOSE [...] [address] | | | [place] [address] | + + + CBC (HEMOGRAM) ONLY [...] | + + + | Blood | [facility], CORE [address] | | | [place] [address] | + + + + + | [...] | + + + | Blood | [facility], CORE [address] [facility] | | | [place] [address] | + + + + + | [...] | | ------ CBC (HEMOGRAM) | | ONLY[[id number]] Abnormal Final | | result Please view [...] | >60 | >60 mL/min | | BAHRAINI | | | + + + + | EGFR NON | >60 | >60 mL/min | | -BAHRAINI | | | + + + + [...] | + + + | Blood | [facility], CORE [address] [facility] [facility] | | | [place] [address] | + + + + + | [...] [address] | | | [place] [address] | + + + CAPILLARY BLOOD GLUCOSE (NO CHG), POC (09/27/2017 6:25 PM) + +---------+ + | Component | Value | Ref Range | + +---------+ + | BLOOD GLUCOSE, POC | 100 (H) | 70 - 99 mg/dL | + +---------+ + + + + | Specimen | Performing Laboratory | + + + | | [facility] PO[facility] [address] | | | [place] [address] | + + + MODIFIED BARIUM SWALLOWING (09/27/2017 1:38 PM) + + + | Specimen | Performing Laboratory | + + + | | [facility] VOICE RECOGNITION 2 | + + [...] + | | [facility] GE[facility] [address] | | | [place] [address] | + + + CAPILLARY BLOOD GLUCOSE [...] [address] | | | [place] [address] | + + + CBC (HEMOGRAM) ONLY [...] | + + + | Blood | [facility], CORE [address] [facility] [facility] | | | [place] [address] | + + + + + | [...] | | ------ CBC (HEMOGRAM) | | ONLY[[id number]] Abnormal Final | | result Please view [...] | + + + | Blood | [facility], [address] | | | [place] [address] | + + + + + | [...] | >60 | >60 mL/min | | BAHRAINI | | | + + + + | EGFR NON | >60 | >60 mL/min | | -BAHRAINI | | | + + + + [...] | + + + | Blood | [facility], CORE [address] [facility] | | | [place] [address] | + + + + + | [...] + + + | | [facility] [place], POINT OF CARE TESTS [address] | | | [place] [address] | + + + CAPILLARY BLOOD GLUCOSE [...] [address] | | | [place] [address] | + + + 12 LEAD ECG [...] | | [facility] OF CARDIOLOGY [address] [place] [address] | | | [place] [address] | + + + CAPILLARY BLOOD GLUCOSE [...] [address] | | | [place] [address] | + + + CAPILLARY BLOOD GLUCOSE [...] [address] | | | [place] [address] | + + + CAPILLARY BLOOD GLUCOSE [...] [address] | | | [place] [address] | + + + CBC (HEMOGRAM) ONLY [...] | + + + | Blood | [facility], CORE [address] [facility] | | | [place] [address] | + + + + + | [...] | + + + | Blood | [facility], CORE [address] [facility] | | | [place] [address] | + + + + + | [...] | | ------ CBC (HEMOGRAM) | | ONLY[[id number]] Abnormal Final | | result Please view [...] | >60 | >60 mL/min | | BAHRAINI | | | + + + + | EGFR NON | >60 | >60 mL/min | | -BAHRAINI | | | + + + + [...] | + + + | Blood | [facility], CORE [address] [facility] | | | [place] [address] | + + + + + | [...] + + + | | [facility], POINT [facility] [address] | | | [place] [address] | + + + MRI BRAIN WWO [...] | + + + | Blood | [facility], C[facility] [address] | | | [place] [address] | + + + + + | [...] | + + + | Blood | [facility], CORE [address] [place] [address] | | | [place] [address] | + + + + + | [...] | | ------ CBC (HEMOGRAM) | | ONLY[[id number]] Abnormal Final | | result Please view [...] | >60 | >60 mL/min | | BAHRAINI | | | + + + + | EGFR NON | >60 | >60 mL/min | | -BAHRAINI | | | + + + + [...] | + + + | Blood | [facility], CORE [address] [facility] | | | [place] [address] | + + + + + | [...] Laboratory | + + + | | [facility] [address] [facility] | | | [place] [address] | + + + MODIFIED BARIUM SWALLOWING (09/24/2017 12:50 PM) + + + | Specimen | Performing Laboratory | + + + | | [facility] VOICE RECOGNITION 2 | + + [...] | + + + | Blood | [facility], CORE [address] [facility] | | | [place] [address] | + + + + + | [...] | >60 | >60 mL/min | | BAHRAINI | | | + + + + | EGFR NON | >60 | >60 mL/min | | -BAHRAINI | | | + + + + [...] | + + + | Blood | [facility], CORE [address] [place] [address] | | | [place] [address] | + + + + + | [...] | + + + | Blood | [facility], CORE [address] [facility] | | | [place] [address] | + + + + + | [...] | | ------ CBC (HEMOGRAM) | | ONLY[[id number]] Abnormal Final | | result Please view [...] | + + + | Blood | [facility], CORE [address] [place] [address] | | | [place] [address] | + + + + + | [...] | + + + | Blood | [facility], CORE [address] | | | [place] [address] | + + + + + | [...] | | ------ CBC (HEMOGRAM) | | ONLY[[id number]] Abnormal Final | | result Please view [...] | >60 | >60 mL/min | | BAHRAINI | | | + + + + | EGFR NON | >60 | >60 mL/min | | -BAHRAINI | | | + + + + [...] | + + + | Blood | [facility], CORE [address] [place] [address] | | | [place] [address] | + + + + + | [...] + + | | [facility], POINT OF CARE TESTS [address] | | | [place] [address] | + + + CAPILLARY BLOOD GLUCOSE (NO CHG), POC (09/22/2017 1:29 PM) + +---------+ + | Component | Value | Ref Range | + +---------+ + | BLOOD GLUCOSE, POC | 113 (H) | 70 - 99 mg/dL | + +---------+ + + + + | Specimen | Performing Laboratory | + + + | | [facility] [facility], POINT OF CARE TESTS [address] | | | [place] [address] | + + + CT HEAD WO CONTRAST (09/22/2017 12:25 PM) + + + | Specimen | Performing Laboratory | + + + | | [facility] VOICE RECOGNITION 2 | + + [...] Orta MD 09/22/2017 4:24 PM | |Preliminary: Cehrri Vargas MD | + + TROPONIN I, PLASMA (09/22/2017 9:52 AM) + +-------+ + | Component | Value | Ref Range | + +-------+ + | TROPONIN I | <0.02 | <0.80 ng/mL | + +-------+ + + + + | Specimen | Performing Laboratory | + + + | Blood | [facility], CORE [address] [facility] | | | [place] [address] | + + + 12 LEAD ECG [...] Laboratory | + + + | | [facility] [address] [place] [address] | | | [place] [address] | + + + CBC (HEMOGRAM) ONLY [...] | + + + | Blood | [facility], C[facility] [address] [facility] | | | [place] [address] | + + + + + | [...] | + + + | Blood | [facility], CORE [address] [facility] [facility] | | | [place] [address] | + + + + + | [...] | | ------ CBC (HEMOGRAM) | | ONLY[[id number]] Abnormal Final | | result Please view [...] | >60 | >60 mL/min | | BAHRAINI | | | + + + + | EGFR NON | >60 | >60 mL/min | | -BAHRAINI | | | + + + + [...] | + + + | Blood | [facility], CORE [address] [facility] [facility] | | | [place] [address] | + + + + + | [...] [address] | | | [place] [address] | + + + CT HEAD WO CONTRAST (09/21/2017 9:53 PM) + + + | Specimen | Performing Laboratory | + + + | | [facility] VOICE RECOGNITION 2 | + + [...] | + + + | Blood | [facility], CORE [address] [facility] [facility] | | | [facility] [address] | + + + + + [...] | + + + | Blood | [facility], CORE [address] [facility] | | | [place] [address] | + + + + + | [...] | | ------ CBC (HEMOGRAM) | | ONLY[[id number]] Abnormal Final | | result Please view [...] | >60 | >60 mL/min | | BAHRAINI | | | + + + + | EGFR NON | >60 | >60 mL/min | | -BAHRAINI | | | + + + + [...] | + + + | Blood | [facility], CORE [address] [place] [address] | | | [place], [place] [address] | + + + + + | [...] Note | + + | 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, Picomize Res In Interface - 09/20/2017 7:50 PM [...] Laboratory | + + + | | [facility] VOICE RECOGNITION 2 | + + [...] Note | + + | 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, RadiChoiceMap Res In Interface - 09/20/2017 6:25 PM [...] Note | + + | 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, Outfittery In Interface - 09/20/2017 6:26 PM PDT [...] Note | + + | 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, Outfittery In Interface - 09/20/2017 5:17 PM PDT [...] Laboratory | + + + | | [facility] [address] [place] [address] | | | [place] [address] | + + + CBC (HEMOGRAM) ONLY [...] | + + + | Blood | [facility] [address] [facility] [address] | | | [place] [address] | + + + + + | [...] | + + + | Blood | [facility], CORE [address] | | | [facility] [place] [address] | + + + + + | [...] | | ------ CBC (HEMOGRAM) | | ONLY[[id number]] Abnormal Final | | result Please view [...] | >60 | >60 mL/min | | BAHRAINI | | | + + + + | EGFR NON | >60 | >60 mL/min | | -BAHRAINI | | | + + + + [...] | + + + | Blood | [facility], CORE [address] [facility] [address] | | | [place] [address] | + + + + + | [...] | + + + | Blood | [facility], CORE [address] | | | [place] [address] | + + + + + | [...] | + + + | Blood | [facility], CORE [address] [place] [address] | | | [place] [address] | + + + + + | [...] | | ------ CBC (HEMOGRAM) | | ONLY[[id number]] Abnormal Final | | result Please view [...] | >60 | >60 mL/min | | BAHRAINI | | | + + + + | EGFR NON | >60 | >60 mL/min | | -BAHRAINI | | | + + + + [...] | + + + | Blood | [facility], CORE [address] [facility] | | | [place] [address] | + + + + + | [...] | + + + | Blood | [facility], CORE [address] [facility] | | | [place] [address] | + + + + + | [...] | + + + | Blood | [facility], CORE [address] | | | [place] [address] | + + + + + | [...] | | ------ CBC (HEMOGRAM) | | ONLY[[id number]] Abnormal Final | | result Please view [...] | >60 | >60 mL/min | | BAHRAINI | | | + + + + | EGFR NON | >60 | >60 mL/min | | -BAHRAINI | | | + + + + [...] | + + + | Blood | [facility], CORE [address] [facility] [address] | | | [place] [address] | + + + + + | [...] | + + + | Blood | [facility], CORE [address] [facility] [address] | | | [place] [address] | + + + + + | [...] | + + + | Blood | [facility], [facility] [address] [facility] | | | [place] [address] | + + + + + | [...] | | ------ CBC (HEMOGRAM) | | ONLY[[id number]] Abnormal Final | | result Please view [...] | >60 | >60 mL/min | | BAHRAINI | | | + + + + | EGFR NON | >60 | >60 mL/min | | -BAHRAINI | | | + + + + [...] | + + + | Blood | [facility], [facility] [place] [address] | | | [place] [address] | + + + + + | [...] Laboratory | + + + | | [facility] VOICE RECOGNITION | + + + + + | Narrative | + + | EXAM: TX CHEST PICC LINE CHECK HISTORY: PICC placement [...] Note | + + | 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, [employer] Res In Interface - 09/16/2017 1:34 PM PDT EXAM: TX CHEST | | PICC LINE CHECK HISTORY: [...] | Narrative | + + | EXAM: TX CHEST PICC LINE CHECK HISTORY: Evaluate PICC [...] Note | + + | 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, [employer] Res In Interface - 09/16/2017 11:41 AM PDT EXAM: TX CHEST | | PICC LINE CHECK HISTORY: [...] | + + + | Blood | [facility], [facility] [address] | | | [place] [address] | + + + + + | [...] | + + + | Blood | [facility], [address] [address] | | | [place] [address] | + + + + + | [...] | | ------ CBC (HEMOGRAM) | | ONLY[[id number]] Abnormal Final | | result Please view [...] | >60 | >60 mL/min | | BAHRAINI | | | + + + + | EGFR NON | >60 | >60 mL/min | | -BAHRAINI | | | + + + + [...] | + + + | Blood | [facility], [address] [facility] [address] | | | [place] [address] | + + + + + | [...] | Narrative | + + | EXAM: TX CHEST 1 VIEW HISTORY: COMPARISON: None. FINDINGS: [...] Note | + + | 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, [employer] Res In Interface - 09/15/2017 6:45 PM PDT EXAM: TX CHEST 1 | | VIEW HISTORY: COMPARISON: [...] | Narrative | + + | EXAM: TX CHEST PICC LINE CHECK HISTORY: PICC COMPARISON: [...] Interface - 09/15/2017 6:43 PM PDT EXAM: TX CHEST | | PICC LINE CHECK HISTORY: [...] A pause verifies correct patient, procedure, equipment, whanau support worker and | | site/side marked as required. [...] Arm area Basilic vein. Catheter lot number: [id number] with a length of 55 cm | [...] Laboratory | + + + | | [facility] VOICE RECOGNITION | + + + [...] Note | + + | 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, [employer] Res In Interface - 09/15/2017 2:13 PM [...] | + + + | Blood | [facility], [address] | | | [place] [address] | + + + + + | [...] | + + + | Blood | [facility], [address] | | | [place] [address] | + + + + + | [...] | | ------ CBC (HEMOGRAM) | | ONLY[[id number]] Abnormal Final | | result Please view [...] | >60 | >60 mL/min | | BAHRAINI | | | + + + + | EGFR NON | >60 | >60 mL/min | | -BAHRAINI | | | + + + + [...] | + + + | Blood | [facility], [address] [facility] | | | [place] [address] | + + + + + | [...] | + + + | Blood | [facility], [facility] [place] [address] [place] [address] | | | [place] [address] | + + + + + | [...] | + + + | Blood | [facility], [address] | | | [place] [address] | + + + + + | [...] | | ------ CBC (HEMOGRAM) | | ONLY[[id number]] Abnormal Final | | result Please view [...] | >60 | >60 mL/min | | BAHRAINI | | | + + + + | EGFR NON | >60 | >60 mL/min | | -BAHRAINI | | | + + + + [...] | + + + | Blood | [facility] [facility], CORE [address] [facility] | | | [place] [address] | + + + + + | [...] | + + + | Blood | [facility], CORE [address] [facility] | | | [place] [address] | + + + + + | [...] | + + + | Blood | [facility], CORE [address] [facility] [address] | | | [place] [address] | + + + + + | [...] | | ------ CBC (HEMOGRAM) | | ONLY[[id number]] Abnormal Final | | result Please view [...] | >60 | >60 mL/min | | BAHRAINI | | | + + + + | EGFR NON | >60 | >60 mL/min | | -BAHRAINI | | | + + + + [...] | + + + | Blood | [facility], CORE [address] [facility] | | | [place] [address] | + + + + + | [...] | + + + | Blood | [facility], [address] | | | [place] [address] | + + + + + | [...] | + + + | Blood | [facility], CORE [address] [facility] | | | [place] [address] | + + + + + | [...] | | ------ CBC (HEMOGRAM) | | ONLY[[id number]] Abnormal Final | | result Please view [...] | >60 | >60 mL/min | | BAHRAINI | | | + + + + | EGFR NON | >60 | >60 mL/min | | -BAHRAINI | | | + + + + [...] | + + + | Blood | [facility], CORE [address] [facility] | | | [place] [address] | + + + + + | [...] Laboratory | + + + | | [facility] RECOGNITION | + + + [...] Laboratory | + + + | | [facility] RECOGNITION | + + + [...] | + + + | Blood | [facility], CORE [address] [facility] | | | [place] [address] | + + + + + | [...] | + + + | Blood | [facility], CORE [address] [facility] | | | [place] [address] | + + + + + | [...] | | ------ CBC (HEMOGRAM) | | ONLY[[id number]] Abnormal Final | | result Please view [...] | >60 | >60 mL/min | | BAHRAINI | | | + + + + | EGFR NON | >60 | >60 mL/min | | -BAHRAINI | | | + + + + [...] | + + + | Blood | [facility], CORE [address] [facility] | | | [place], [place] [address] | + + + + + | [...] | + + + | Blood | [facility], CORE [address] [facility] | | | [place] [address] | + + + X-RAY ABD LTD FEEDING TUBE EVAL (09/10/2017 12:44 PM) + + + | Specimen | Performing Laboratory | + + + | | [facility] VOICE RECOGNITION 2 | + + [...] Laboratory | + + + | | [facility] VOICE RECOGNITION | + + + + + | Narrative | + + | STUDY: TX CHEST 1 VIEW 09/10/17 07:02:01 HISTORY: Possible [...] Interface - 09/10/2017 9:25 AM PDT STUDY: TX CHEST 1 | | VIEW 09/10/17 07:02:01 [...] | + + + | Blood | [facility], CORE [address] [facility] | | | [facility] [address] | + + + AMYLASE, PLASMA (09/10/2017 5:08 AM) + +-------+ + | Component | Value | Ref Range | + +-------+ + | AMYLASE,PLASMA | 58 | 25 - 115 U/L | + +-------+ + + + + | Specimen | Performing Laboratory | + + + | Blood | [facility], CORE [address] [facility] [address] | | | [place] [address] | + + + CBC (HEMOGRAM) ONLY [...] | + + + | Blood | [facility], [address] | | | [place] [address] | + + + + + | [...] | + + + | Blood | [facility], CORE [address] [place] [address] | | | [place] [address] | + + + + + | [...] | | ------ CBC (HEMOGRAM) | | ONLY[[id number]] Abnormal Final | | result Please view [...] | >60 | >60 mL/min | | BAHRAINI | | | + + + + | EGFR NON | >60 | >60 mL/min | | -BAHRAINI | | | + + + + [...] | + + + | Blood | [facility], CORE [address] [facility] | | | [place] [address] | + + + + + | [...] + | | [facility] [address] [place] [address] | | | [place] [address] | + + + X-RAY ABD LTD [...] Note | + + | 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, Picomize Res In Interface - 09/10/2017 11:11 AM [...] [address] | | | [place] [address] | + + + MAGNESIUM, PLASMA (09/09/2017 3:50 AM) + +-------+ + | Component | Value | Ref Range | + +-------+ + | MAGNESIUM,PLASMA | 2.0 | 1.6 - 2.6 mg/dL | + +-------+ + + + + | Specimen | Performing Laboratory | + + + | Blood | [facility], CORE [address] [place] [address] [place] | | | [place] [address] | + + + + + | [...] | + + + | Blood | [facility], CORE [address] | | | [place] [address] | + + + + + | [...] | | ------ CBC (HEMOGRAM) | | ONLY[[id number]] Abnormal Final | | result Please view [...] | >60 | >60 mL/min | | BAHRAINI | | | + + + + | EGFR NON | >60 | >60 mL/min | | -BAHRAINI | | | + + + + [...] | + + + | Blood | [facility], CORE [address] [facility] | | | [place] [address] | + + + + + | [...] | + + + | Blood | [facility], CORE [address] [facility] [address] | | | [place] [address] | + + + + + | [...] | >60 | >60 mL/min | | BAHRAINI | | | + + + + | EGFR NON | >60 | >60 mL/min | | -BAHRAINI | | | + + + + [...] | + + + | Blood | [facility], CORE [address] [facility] | | | [place] [address] | + + + + + | [...] | | ------ CBC (HEMOGRAM) | | ONLY[[id number]] Abnormal Final | | result Please view [...] | + + + | Blood | [facility], CORE [address] [facility] | | | [facility] [address] | + + + LIVER SET (AST,ALT,BILI [...] | + + + | Blood | [facility], CORE [address] [facility] | | | [place] [address] | + + + X-RAY ABD LTD FEEDING TUBE EVAL (09/08/2017 4:38 AM) + + + | Specimen | Performing Laboratory | + + + | | [facility] VOICE RECOGNITION | + + + [...] | + + + | | [facility] [address] [place] [address] | | | [place] [address] | + + + X-RAY PORTABLE CHEST 1 VIEW (09/07/2017 6:12 AM) + + + | Specimen | Performing Laboratory | + + + | | [facility] VOICE RECOGNITION | + + + + + | Narrative | + + | EXAM: TX CHEST 1 VIEW HISTORY: Post extubation COMPARISON: [...] Interface - 09/07/2017 10:46 AM PDT EXAM: TX CHEST 1 | | VIEWHISTORY: Post extubationCOMPARISON: [...] | + + + | Blood | [facility], CORE [address] [facility] | | | [place] [address] | + + + + + | [...] | >60 | >60 mL/min | | BAHRAINI | | | + + + + | EGFR NON | >60 | >60 mL/min | | -BAHRAINI | | | + + + + [...] | + + + | Blood | [facility], CORE [address] [facility] | | | [place] [address] | + + + + + | [...] | + + + | Blood | [facility], CORE [address] [facility] | | | [place] [address] | + + + + + | [...] | | ------ CBC (HEMOGRAM) | | ONLY[[id number]] Abnormal Final | | result Please view [...] Note | + + | 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, Picomize Res In Interface - 09/07/2017 10:46 AM [...] Laboratory | + + + | | [facility] VOICE RECOGNITION | + + + [...] Note | + + | 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, Picomize Res In Interface - 09/07/2017 10:46 AM [...] Laboratory | + + + | | [facility] [address] [facility] | | | [place] [address] | + + + PROCEDURE NOTE (09/06/2017 [...] on the 1st attempt. Midline lot number [id number]; there was positive blood | | return. [...] | >60 | >60 mL/min | | BAHRAINI | | | + + + + | EGFR NON | >60 | >60 mL/min | | -BAHRAINI | | | + + + + [...] | + + + | Blood | [facility] [address] [facility] [address] | | | [place] [address] | + + + + + | [...] | + + + | Blood | [facility], CORE [address] [place] [address] | | | [place] [address] | + + + + + | Narrative | + + | Please draw trough just prior to administering the 01:30 dose on 09/06, thanks! | + + X-RAY PORTABLE CHEST 1 VIEW (09/05/2017 5:33 AM) + + + | Specimen | Performing Laboratory | + + + | | [facility] VOICE RECOGNITION | + + + + + | Narrative | + + | EXAM: TX CHEST 1 VIEW HISTORY: Evaluation after chest [...] Interface - 09/05/2017 10:16 AM PDT EXAM: TX CHEST 1 | | VIEW HISTORY: Evaluation [...] | + + + | Blood | [facility], CORE [address] [place] [address] | | | [place] [address] | + + + MAGNESIUM, PLASMA (09/05/2017 3:54 AM) + +-------+ + | Component | Value | Ref Range | + +-------+ + | MAGNESIUM,PLASMA | 1.8 | 1.6 - 2.6 mg/dL | + +-------+ + + + + | Specimen | Performing Laboratory | + + + | Blood | [facility], [address] [address] | | | [place] [address] | + + + + + | [...] | >60 | >60 mL/min | | BAHRAINI | | | + + + + | EGFR NON | >60 | >60 mL/min | | -BAHRAINI | | | + + + + [...] | + + + | Blood | [facility], [facility] [address] [facility] | | | [facility] [place] [address] | + + + + + | [...] | >60 | >60 mL/min | | BAHRAINI | | | + + + + | EGFR NON | >60 | >60 mL/min | | -BAHRAINI | | | + + + + [...] | + + + | Blood | [facility], CORE [address] [facility] | | | [place] [address] | + + + + + | [...] tomorrow morning. CB Henson Pager / ID: [phone] | + + CULTURE, SPUTUM (09/04/2017 1:17 PM) + + + | Specimen | Performing Laboratory | + + + | Sputum - | [facility] [place] [id number] [place] [address] | | Endotracheal tube | [id number] | | tip | | + + [...] + | Urine - Catheter - | [facility], CORE [address] | | indwelling | [place] [address] | + + + UATITO ONLY (09/04/2017 [...] + | SPECIFIC GRAVITY | 1.011Comment: Specific [place] performed by | 1.005 - 1.030 | | | refractometry | | + + + + + + + | Specimen | Performing Laboratory | + + + | Urine - Catheter - | [facility], CORE [address] [facility] | | [place]welling | [place] [address] | + + + CULTURE, BLOOD BACTI [...] + + | Blood - Arterial | [facility], [address]ORE [address] | | line | [place] [address] | + + + CULTURE, BLOOD BACTI & YEAST [facility] (09/04/2017 1:16 PM) + + + + | Component | Value | Ref Range | + + + + | CULTURE RESULT | Final Report:No Bacteria or Yeast isolated | | | | at 5 days. | | + + + + + + + | Specimen | Performing Laboratory | + + + | Blood - Peripheral | [facility], CORE [address] [facility] | | | [place] [address] | + + + CULTURE, BLOOD BACTI [...] ------ CULTURE, BLOOD | | BACTI & Y...[[id number]] Final | | result Please view results [...] ------ CULTURE, BLOOD | | BACTI & Y...[[id number]] Final | | result Please view results [...] Laboratory | + + + | | [facility] [address] [place] [address] | | | [place] [address] | + + + X-RAY PORTABLE CHEST 1 VIEW (09/04/2017 7:04 AM) + + + | Specimen | Performing Laboratory | + + + | | [facility] VOICE RECOGNITION | + + + + + | Narrative | + + | EXAM: TX CHEST 1 VIEW HISTORY: Hypoxia. Intubated. COMPARISON: [...] Interface - 09/04/2017 9:49 AM PDT EXAM: TX CHEST 1 | | VIEW HISTORY: Hypoxia. [...] | + + + | Blood | [facility], CORE [address] [facility] | | | [place] [address] | + + + CBC (HEMOGRAM) ONLY [...] | + + + | Blood | [facility], CORE [address] [place] [address] | | | [place] [address] | + + + RENAL FUNCTION SET [...] | >60 | >60 mL/min | | BAHRAINI | | | + + + + | EGFR NON | >60 | >60 mL/min | | -BAHRAINI | | | + + + + [...] | + + + | Blood | [facility], [facility] [address] | | | [place] [address] | + + + + + | [...] | + + + | Blood | [facility], CORE [address] [place] [address] | | | [facility] [address] | + + + + + | [...] | | ------ CBC (HEMOGRAM) | | ONLY[[id number]] Abnormal Final | | result Please view [...] [address] | | | [place] [address] | + + + CAPILLARY BLOOD GLUCOSE [...] TESTS [address] | | | [place] [address] | + + + CAPILLARY BLOOD GLUCOSE (NO CHG), POC (09/03/2017 9:22 PM) + +---------+ + | Component | Value | Ref Range | + +---------+ + | BLOOD GLUCOSE, POC | 119 (H) | 70 - 99 mg/dL | + +---------+ + + + + | Specimen | Performing Laboratory | + + + | | [facility], POINT OF CARE TESTS [address] | | | [place] [address] | + + + CAPILLARY BLOOD GLUCOSE [...] [address] | | | [place] [address] | + + + VASC LAB VENOUS DUPLEX LOWER EXTREMITY BILAT COMP (09/03/2017 9:51 AM) + + + | Specimen | Performing Laboratory | + + + | | [facility] | + + + + [...] Note | + + | 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, Outfittery In Interface - 09/03/2017 10:27 AM PDT [...] + + + | Sputum - | [facility] [id number] [place] [address] | | Expectorated | [id number] | + + + + + | [...] | + + + | Blood | [facility], CORE [address] | | | [place] [address] | + + + X-RAY ABD LTD FEEDING TUBE EVAL (09/03/2017 4:32 AM) + + + | Specimen | Performing Laboratory | + + + | | [facility] VOICE RECOGNITION | + + + [...] Sputum - | [facility] [place] [address] [place], [place] | | Expectorated | [phone] | + + + + + | [...] | + + + | Blood | [facility], CORE [address] [facility] | | | [place] [address] | + + + CBC (HEMOGRAM) ONLY [...] | + + + | Blood | [facility], CORE [address] [facility] | | | [place] [address] | + + + RENAL FUNCTION SET [...] | >60 | >60 mL/min | | BAHRAINI | | | + + + + | EGFR NON | >60 | >60 mL/min | | -BAHRAINI | | | + + + + [...] | + + + | Blood | [facility], CORE [address] [facility] | | | [place] [address] | + + + + + | [...] | + + + | Blood | [facility], CORE [address] [facility] | | | [place] [address] | + + + + + | [...] | | ------ CBC (HEMOGRAM) | | ONLY[[id number]] Abnormal Final | | result Please view results for these tests on the | | individual orders. | + + OPERATION RECORD (09/02/2017 6:53 PM) + + | Procedure Note | + + | Fidelina Shields MD - 09/02/2017 6:53 PM PDT Date of Service: 09/02/2017 | | Attending Surgeon: Fidelina Shields MD Slag Mixer(s): | | Ajay Garcia MD, resident. Preoperative [...] 09/02/2017 18:15:29DT: 09/02/2017 18:53:52Job #: | | [id number] to federal Medicare and Medicaid regulations I was present for | | the entire procedure.Fidelina Tenorio ProfessorDepartment of SurgeryOffice: | | [phone]: [id number] has been electronically signed by Fidelina Shields MD, | | 09/03/2017 at 9:11 AM. | | | | | |Fidelina Shields MD | |Snowmaker | |Department of Surgery | |Office: [phone] | |Pager: [phone] | | | |This has been electronically [...] | + + + | Blood | [facility], CORE [address] [place] [address] | | | [facility] [place] [address] | + + + BLOOD GASES, ARTERIAL [...] | + + + | Blood | [facility], CORE [address] [facility] | | | [place] [address] | + + + CULTURE, AFB (ALL SPEC TYPES EXCEPT BLOOD) (09/02/2017 5:10 PM) + + + | Specimen | Performing Laboratory | + + + | Sputum - | [facility] [address] [place], [place] | | Expectorated | [id number] | + + + + + | [...] | + + + | Blood | [facility], CORE [address] [facility] | | | [place] [address] | + + + + + | [...] | >60 | >60 mL/min | | BAHRAINI | | | + + + + | EGFR NON | >60 | >60 mL/min | | -BAHRAINI | | | + + + + [...] | + + + | Blood | [facility], CORE [address] [facility] | | | [place] [address] | + + + + + | [...] contact: INGRID Zhang | | Beckie, Surgery [phone] Pursuant to federal Medicare and Medicaid regulations I | | was present for the entire procedure. Fidelina Shields MD Slag Mixer | | Professor Department of Surgery Office: [phone] Pager: [phone] This has been | | electronically signed [...] | + + + | Blood | [facility], CORE [address] [facility] | | | [place] [address] | + + + INR (09/02/2017 9:39 AM) + + + + | Component | Value | Ref Range | + + + + | INR | 1.26 (H) | 0.90 - 1.20 INR | + + + + + + + | Specimen | Performing Laboratory | + + + | Blood | [facility], CORE [address] [facility] [address] | | | [place] [address] | + + + + + | [...] | | Attending Surgeon: Fidelina Shields MD Slag Mixer(s): Haim Peralta MD. | | Ajay Garcia [...] 09/02/2017 06:17:53DT: 09/02/2017 | | 06:51:37Job #: [id number] to federal Medicare and Medicaid regulations I | | was present for the entire procedure.Fidelina Tenorio ProfessorDepartment of | | SurgeryOffice: [phone]: [id number] has been electronically signed by Fidelina Shields MD, 09/02/2017 at 10:40 AM. | | | | | |Pursuant to federal Medicare and Medicaid regulations I was present for the entire procedur e. | | | | | | | |Fidelina Shields MD | |Snowmaker | |Department of Surgery | |Office: [phone] | |Pager: [phone] | | | |This has been electronically [...] | + + + | Blood | [facility], CORE [address] [facility] | | | [place] [address] | + + + HEMATOCRIT (09/02/2017 5:16 AM) + + + + | Component | Value | Ref Range | + + + + | HEMATOCRIT | 34.0 (L) | 41.0 - 53.0 % | + + + + + + + | Specimen | Performing Laboratory | + + + | Blood | [facility], CORE [address] | | | [place] [address] | + + + PRODUCT - RED CELLS LEUKOREDUCED (09/02/2017 2:53 AM) + + + + | Component | Value | Ref Range | + + + + | PRODUCT DESCRIPTION | -1 RED BLOOD CELL ADENINE-SALINE ADDED | | | | LEUKOCYTE | | + + + + | PRODUCT UNIT # | [id number] | | + + + + | UNIT ABO | O | | + + + + | UNIT RH | POS | | + + + + | STATUS OF UNIT | Presumed Transfused | | + + + + | EXPIRATION DATE | [id number] | | + + + + | BLOOD TYPE BARCODE | 5100 | | + + + + | BLOOD PRODUCT CODE | [id number] | | + + + + + + + | Specimen | Performing Laboratory | + + + | | [facility], TRANSFUSION MEDICINE [address] [facility] | | | [place] [address] | + + + CT PELVIS WO IV CONTRAST (09/02/2017 1:45 AM) + + + | Specimen | Performing Laboratory | + + + | | [facility] VOICE RECOGNITION | + + + [...] | + + + | Blood | [facility], CORE [address] | | | [place] [address] | + + + RENAL FUNCTION SET [...] | >60 | >60 mL/min | | BAHRAINI | | | + + + + | EGFR NON | >60 | >60 mL/min | | -BAHRAINI | | | + + + + [...] Blood | [facility], CORE [address] [facility] | | | [place] [address] | + + + + + | [...] | + + + | Blood | [facility], CORE [address] [facility] | | | [place] [address] | + + + + + | [...] | | ------ CBC (HEMOGRAM) | | ONLY[[id number]] Abnormal Final | | result Please view [...] | | (http://www.cdc.gov/mmwr/preview/mmwrhtml/r | | | | [email or web address].htm), for information concerning | | | | test performance in low-prevalence | | | | populations and use in occupational | | | | screening. | | + + + + | NIL | 0.05Comment: Performed by [employer] | IU/mL | | | Vertigo, | | | | [address], | | | | [place] [address] | | | | [phone] | | | | [email or web address], Gui Ervin MD - | | | | Lab. Director | | + + + + | TB AG-NIL | 0.26 | 0.00 - 0.34 IU/mL | + + + + | MITOGEN-NIL | 9.35 | IU/mL | + + + + + + + | Specimen | Performing Laboratory | + + + | Blood | [facility] [address] [place], [place] | | | [address] | + + + LACTATE (09/01/2017 8:18 PM) + +-------+ + | Component | Value | Ref Range | + +-------+ + | LACTATE | 1.6 | mmol/L | + +-------+ + + + + | Specimen | Performing Laboratory | + + + | Blood | [facility], CORE [address] [facility] | | | [place] [address] | + + + + + | [...] | + + + | Blood | [facility], CORE [address] [facility] | | | [place] [address] | + + + X-RAY KNEE 2 VIEWS LEFT (09/01/2017 7:48 PM) + + + | Specimen | Performing Laboratory | + + + | | [facility] RADI[facility] VOICE RECOGNITION | + + + [...] Note | + + | 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, [employer] Res In Interface - 09/02/2017 8:55 AM [...] | Narrative | + + | EXAM: TX CHEST 1 VIEW HISTORY: Hypoxemia COMPARISON: 09/01/17 [...] Interface - 09/02/2017 10:34 AM PDT EXAM: TX CHEST 1 | | VIEW HISTORY: HypoxemiaCOMPARISON: [...] | + + + | Blood | [facility], CORE [address] [facility] | | | [place] [address] | + + + HEMATOCRIT (09/01/2017 5:43 PM) + + + + | Component | Value | Ref Range | + + + + | HEMATOCRIT | 34.1 (L) | 41.0 - 53.0 % | + + + + + + + | Specimen | Performing Laboratory | + + + | Blood | [facility], [address]ORE [address] [facility] | | | [place] [address] | + + + PRODUCT - PLATELET PHERESIS LEUKOREDUCED (09/01/2017 4:42 PM) + + + + | Component | Value | Ref Range | + + + + | PRODUCT DESCRIPTION | PLATELETS PHERESIS LEUKOCYTE REDUCED | | + + + + | PRODUCT UNIT # | [id number] | | + + + + | UNIT ABO | O | | + + + + | UNIT RH | POS | | + + + + | STATUS OF UNIT | Presumed Transfused | | + + + + | EXPIRATION DATE | [id number] | | + + + + | BLOOD TYPE BARCODE | | | + + + + | BLOOD PRODUCT CODE | [id number] | | + + + + + + + | Specimen | Performing Laboratory | + + + | | [facility], TRANSFUSION MEDICINE [address] [facility] | | | [place] [address] | + + + BLOOD GASES, ARTERIAL [...] | + + + | Blood | [facility], CORE [address] [place] [address] | | | [place] [address] | + + + LACTATE (09/01/2017 4:19 PM) + +-------+ + | Component | Value | Ref Range | + +-------+ + | LACTATE | 1.6 | mmol/L | + +-------+ + + + + | Specimen | Performing Laboratory | + + + | Blood | [facility], CORE [address] [place] [address] | | | [place] [address] | + + + + + | [...] | + + + | Blood | [facility], [address]ORE [address] [facility] | | | [place] [address] | + + + COMPLETE METABOLIC SET [...] | >60 | >60 mL/min | | BAHRAINI | | | + + + + | EGFR NON | >60 | >60 mL/min | | -BAHRAINI | | | + + + + [...] | + + + | Blood | [facility] [address] [facility] | | | [place] [address] | + + + + + | [...] | | ------ CBC (HEMOGRAM) | | ONLY[[id number]] Abnormal Final | | result Please view [...] | + + + | Blood | [facility], CORE [address] | | | [place] [address] | + + + + + | [...] | + + + | Blood | [facility], CORE [address] | | | [place] [address] | + + + + + | [...] micropuncture access set was exchanged for a [employer] | | wire. Under fluoroscopic guidance, a 5 Fr flush catheter was used to evaluate the | | distal abdominal aorta and pelvic vasculature. A wire and catheter were then used to | | select the left common and internal iliac arteries from the right METROLOGIST approach. DSA | | was performed from [...] micropuncture access set was exchanged for a Chosen[employer]fm wire. Under fluoroscopic guidance, | | a 5 Fr flush catheter was used to evaluate the distal abdominal aorta and pelvic | | vasculature. A wire and catheter were then used to select the left common and internal | | iliac arteries from the right METROLOGIST approach. DSA was performed from the left [...] micropuncture access set was exchanged for a Chosen.fm wire. Under fluoroscopic guidance, a 5 Fr flush catheter was used | |to evaluate the distal abdominal aorta and pelvic vasculature. A wire and catheter were th en used to select the left common and internal iliac arteries from the right METROLOGIST approach. DSA was performed from the left [...] | + + + | Blood | [facility], POINT OF CARE TESTS [address] | | | [place] [address] | + + + EXPLORATORY LAPAROTOMY (09/01/2017 12:31 PM) + + | Narrative | + + | Fidelina Shields MD 09/01/2017 12:42 PM BRIEF OPERATIVE NOTE: | | Date: 09/01/2017 Author: Fidelina Shields MD Attending Physician: | | Fidelina Shields MD Slag Mixer(s): Haim Peralta MD, Glo Olmos MD | [...] the case. | | Fidelina Shields MD [facility] Division of Trauma, Critical Care and | | Acute Care Surgery Office: [phone] Pager: [phone] | + + ABG-FULL ABL, POC (09/01/2017 [...] [address] | | | [place] [address] | + + + CREATININE, BODY FLUID (09/01/2017 11:52 AM) + +-------+ + | Component | Value | Ref Range | + +-------+ + | CREATININE BODY | 0.60 | mg/dL | | FLUID | | | + +-------+ + + + + | Specimen | Performing Laboratory | + + + | Fluid - Abdominal | [facility], CORE [address] | | | [place] [address] | + + + + + | [...] | + + + | Blood | [facility], POINT OF [facility] [address] | | | [place] [address] | + + + PRODUCT - PLATELET PHERESIS LEUKOREDUCED (09/01/2017 9:56 AM) + + + + | Component | Value | Ref Range | + + + + | PRODUCT DESCRIPTION | PLATELETS PHERESIS LEUKOCYTES REDUCED | | + + + + | PRODUCT UNIT # | [id number] | | + + + + | UNIT ABO | A | | + + + + | UNIT RH | POS | | + + + + | STATUS OF UNIT | Returned to Blood Bank | | + + + + | EXPIRATION DATE | [id number] | | + + + + | BLOOD TYPE BARCODE | 6200 | | + + + + | BLOOD PRODUCT CODE | [id number] | | + + + + + + + | Specimen | Performing Laboratory | + + + | | [facility], TRANSFUSION MEDICINE [address] | | | [place] [address] | + + + PRODUCT - FRESH FROZEN PLASMA (09/01/2017 9:53 AM) + + + + | Component | Value | Ref Range | + + + + | PRODUCT DESCRIPTION | LIQUID PLASMA, IRRADIATED | | + + + + | PRODUCT UNIT # | [id number] | | + + + + | UNIT ABO | A | | + + + + | UNIT RH | POS | | + + + + | STATUS OF UNIT | Returned to Blood Bank | | + + + + | EXPIRATION DATE | [id number] | | + + + + | BLOOD TYPE BARCODE | 6200 | | + + + + | BLOOD PRODUCT CODE | [id number] | | + + + + + + + | Specimen | Performing Laboratory | + + + | | [facility], TRANSFUSION MEDICINE [address] | | | [place] [address] | + + + PRODUCT - FRESH FROZEN PLASMA (09/01/2017 9:53 AM) + + + + | Component | Value | Ref Range | + + + + | PRODUCT DESCRIPTION | LIQUID PLASMA, IRRADIATED | | + + + + | PRODUCT UNIT # | [id number] | | + + + + | UNIT ABO | A | | + + + + | UNIT RH | POS | | + + + + | STATUS OF UNIT | Returned to Blood Bank | | + + + + | EXPIRATION DATE | [id number] | | + + + + | BLOOD TYPE BARCODE | 6200 | | + + + + | BLOOD PRODUCT CODE | [id number] | | + + + + + + + | Specimen | Performing Laboratory | + + + | | [facility], TRANSFUSION MEDICINE [address] | | | [place] [address] | + + + PRODUCT - RED CELLS LEUKOREDUCED (09/01/2017 9:49 AM) + + + + | Component | Value | Ref Range | + + + + | PRODUCT DESCRIPTION | -3 RED BLOOD CELLS ADENINE-SALINE ADDED | | | | LEUKOCY | | + + + + | PRODUCT UNIT # | [id number] | | + + + + | UNIT ABO | O | | + + + + | UNIT RH | POS | | + + + + | STATUS OF UNIT | Returned to Blood Bank | | + + + + | EXPIRATION DATE | [id number] | | + + + + | BLOOD TYPE BARCODE | 5100 | | + + + + | BLOOD PRODUCT CODE | [id number] | | + + + + + + + | Specimen | Performing Laboratory | + + + | | [facility], TRANSFUSION MEDICINE [address] [place] [address] | | | [place] [address] | + + + PRODUCT - RED CELLS LEUKOREDUCED (09/01/2017 9:49 AM) + + + + | Component | Value | Ref Range | + + + + | PRODUCT DESCRIPTION | -3 RED BLOOD CELLS ADENINE-SALINE ADDED | | | | LEUKOCY | | + + + + | PRODUCT UNIT # | [id number] | | + + + + | UNIT ABO | O | | + + + + | UNIT RH | POS | | + + + + | STATUS OF UNIT | Returned to Blood Bank | | + + + + | EXPIRATION DATE | [id number] | | + + + + | BLOOD TYPE BARCODE | 5100 | | + + + + | BLOOD PRODUCT CODE | [id number] | | + + + + + + + | Specimen | Performing Laboratory | + + + | | [facility], TRANSFUSION MEDICINE [address] | | | [place] [address] | + + + PRODUCT - RED CELLS LEUKOREDUCED (09/01/2017 9:49 AM) + + + + | Component | Value | Ref Range | + + + + | PRODUCT DESCRIPTION | -1 RED BLOOD CELL ADENINE-SALINE ADDED | | | | LEUKOCYTE | | + + + + | PRODUCT UNIT # | [id number] | | + + + + | UNIT ABO | O | | + + + + | UNIT RH | POS | | + + + + | STATUS OF UNIT | Returned to Blood Bank | | + + + + | EXPIRATION DATE | [id number] | | + + + + | BLOOD TYPE BARCODE | 5100 | | + + + + | BLOOD PRODUCT CODE | [id number] | | + + + + + + + | Specimen | Performing Laboratory | + + + | | [facility], TRANSFUSION MEDICINE [address] | | | [place] [address] | + + + PRODUCT - RED CELLS LEUKOREDUCED (09/01/2017 9:49 AM) + + + + | Component | Value | Ref Range | + + + + | PRODUCT DESCRIPTION | -1 RED BLOOD CELL ADENINE-SALINE ADDED | | | | LEUKOCYTE | | + + + + | PRODUCT UNIT # | [id number] | | + + + + | UNIT ABO | O | | + + + + | UNIT RH | POS | | + + + + | STATUS OF UNIT | Returned to Blood Bank | | + + + + | EXPIRATION DATE | [id number] | | + + + + | BLOOD TYPE BARCODE | 5100 | | + + + + | BLOOD PRODUCT CODE | [id number] | | + + + + + + + | Specimen | Performing Laboratory | + + + | | [facility], TRANSFUSION MEDICINE [address] | | | [place] [address] | + + + PRODUCT - RED CELLS LEUKOREDUCED (09/01/2017 9:49 AM) + + + + | Component | Value | Ref Range | + + + + | PRODUCT DESCRIPTION | -1 RED BLOOD CELL ADENINE-SALINE ADDED | | | | LEUKOCYTE | | + + + + | PRODUCT UNIT # | [id number] | | + + + + | UNIT ABO | O | | + + + + | UNIT RH | POS | | + + + + | STATUS OF UNIT | Returned to Blood Bank | | + + + + | EXPIRATION DATE | [id number] | | + + + + | BLOOD TYPE BARCODE | 5100 | | + + + + | BLOOD PRODUCT CODE | [id number] | | + + + + + + + | Specimen | Performing Laboratory | + + + | | [facility], TRANSFUSION MEDICINE [address] | | | [place] [facility] [place] [address] | + + + PRODUCT - RED CELLS LEUKOREDUCED (09/01/2017 9:49 AM) + + + + | Component | Value | Ref Range | + + + + | PRODUCT DESCRIPTION | -1 RED BLOOD CELL ADENINE-SALINE ADDED | | | | LEUKOCYTE | | + + + + | PRODUCT UNIT # | [id number] | | + + + + | UNIT ABO | O | | + + + + | UNIT RH | POS | | + + + + | STATUS OF UNIT | Returned to Blood Bank | | + + + + | EXPIRATION DATE | [id number] | | + + + + | BLOOD TYPE BARCODE | 5100 | | + + + + | BLOOD PRODUCT CODE | [id number] | | + + + + + + + | Specimen | Performing Laboratory | + + + | | [facility], TRANSFUSION MEDICINE [address] | | | [place] [address] | + + + PRODUCT - FRESH FROZEN PLASMA (09/01/2017 9:46 AM) + + + + | Component | Value | Ref Range | + + + + | PRODUCT DESCRIPTION | PLASMA THAWED | | + + + + | PRODUCT UNIT # | [id number] | | + + + + | UNIT ABO | B | | + + + + | UNIT RH | POS | | + + + + | STATUS OF UNIT | Returned to Blood Bank | | + + + + | EXPIRATION DATE | [id number] | | + + + + | BLOOD TYPE BARCODE | 7300 | | + + + + | BLOOD PRODUCT CODE | [id number] | | + + + + + + + | Specimen | Performing Laboratory | + + + | | [facility], TRANSFUSION MEDICINE [address] | | | [place] [address] | + + + PRODUCT - FRESH FROZEN PLASMA (09/01/2017 9:46 AM) + + + + | Component | Value | Ref Range | + + + + | PRODUCT DESCRIPTION | PLASMA THAWED | | + + + + | PRODUCT UNIT # | [id number] | | + + + + | UNIT ABO | B | | + + + + | UNIT RH | POS | | + + + + | STATUS OF UNIT | Returned to Blood Bank | | + + + + | EXPIRATION DATE | [id number] | | + + + + | BLOOD TYPE BARCODE | 7300 | | + + + + | BLOOD PRODUCT CODE | [id number] | | + + + + + + + | Specimen | Performing Laboratory | + + + | | [facility], TRANSFUSION MEDICINE [address] | | | [place] [address] | + + + PRODUCT - FRESH FROZEN PLASMA (09/01/2017 9:46 AM) + + + + | Component | Value | Ref Range | + + + + | PRODUCT DESCRIPTION | LIQUID PLASMA, IRRADIATED | | + + + + | PRODUCT UNIT # | [id number] | | + + + + | UNIT ABO | A | | + + + + | UNIT RH | POS | | + + + + | STATUS OF UNIT | Returned to Blood Bank | | + + + + | EXPIRATION DATE | [id number] | | + + + + | BLOOD TYPE BARCODE | 6200 | | + + + + | BLOOD PRODUCT CODE | [id number] | | + + + + + + + | Specimen | Performing Laboratory | + + + | | [facility], TRANSFUSION MEDICINE [address] | | | [place] [address] | + + + PRODUCT - FRESH FROZEN PLASMA (09/01/2017 9:46 AM) + + + + | Component | Value | Ref Range | + + + + | PRODUCT DESCRIPTION | LIQUID PLASMA, IRRADIATED | | + + + + | PRODUCT UNIT # | [id number] | | + + + + | UNIT ABO | A | | + + + + | UNIT RH | POS | | + + + + | STATUS OF UNIT | Returned to Blood Bank | | + + + + | EXPIRATION DATE | [id number] | | + + + + | BLOOD TYPE BARCODE | 6200 | | + + + + | BLOOD PRODUCT CODE | [id number] | | + + + + + + + | Specimen | Performing Laboratory | + + + | | [facility], TRANSFUSION MEDICINE [address] | | | [place] [address] | + + + PRODUCT - FRESH FROZEN PLASMA (09/01/2017 9:46 AM) + + + + | Component | Value | Ref Range | + + + + | PRODUCT DESCRIPTION | LIQUID PLASMA, IRRADIATED | | + + + + | PRODUCT UNIT # | [id number] | | + + + + | UNIT ABO | A | | + + + + | UNIT RH | POS | | + + + + | STATUS OF UNIT | Returned to Blood Bank | | + + + + | EXPIRATION DATE | [id number] | | + + + + | BLOOD TYPE BARCODE | 6200 | | + + + + | BLOOD PRODUCT CODE | [id number] | | + + + + + + + | Specimen | Performing Laboratory | + + + | | [facility], TRANSFUSION MEDICINE [address] | | | [place] [address] | + + + PRODUCT - FRESH FROZEN PLASMA (09/01/2017 9:46 AM) + + + + | Component | Value | Ref Range | + + + + | PRODUCT DESCRIPTION | LIQUID PLASMA, IRRADIATED | | + + + + | PRODUCT UNIT # | [id number] | | + + + + | UNIT ABO | A | | + + + + | UNIT RH | POS | | + + + + | STATUS OF UNIT | Returned to Blood Bank | | + + + + | EXPIRATION DATE | [id number] | | + + + + | BLOOD TYPE BARCODE | 6200 | | + + + + | BLOOD PRODUCT CODE | [id number] | | + + + + + + + | Specimen | Performing Laboratory | + + + | | [facility], TRANSFUSION MEDICINE [address] | | | [place] [address] | + + + PRODUCT - PLATELET PHERESIS LEUKOREDUCED (09/01/2017 9:43 AM) + + + + | Component | Value | Ref Range | + + + + | PRODUCT DESCRIPTION | PLATELETS PHERESIS LEUKOCYTE REDUCED | | + + + + | PRODUCT UNIT # | [id number] | | + + + + | UNIT ABO | A | | + + + + | UNIT RH | POS | | + + + + | STATUS OF UNIT | Presumed Transfused | | + + + + | EXPIRATION DATE | [id number] | | + + + + | BLOOD TYPE BARCODE | 6200 | | + + + + | BLOOD PRODUCT CODE | [id number] | | + + + + + + + | Specimen | Performing Laboratory | + + + | | [facility], TRANSFUSION MEDICINE [address] | | | [place] [address] | + + + PRODUCT - FRESH FROZEN PLASMA (09/01/2017 9:35 AM) + + + + | Component | Value | Ref Range | + + + + | PRODUCT DESCRIPTION | LIQUID PLASMA, IRRADIATED | | + + + + | PRODUCT UNIT # | [id number] | | + + + + | UNIT ABO | A | | + + + + | UNIT RH | NEG | | + + + + | STATUS OF UNIT | Presumed Transfused | | + + + + | EXPIRATION DATE | [id number] | | + + + + | BLOOD TYPE BARCODE | | | + + + + | BLOOD PRODUCT CODE | [id number] | | + + + + + + + | Specimen | Performing Laboratory | + + + | | [facility], TRANSFUSION MEDICINE [address] | | | [place] [address] | + + + PRODUCT - FRESH FROZEN PLASMA (09/01/2017 9:35 AM) + + + + | Component | Value | Ref Range | + + + + | PRODUCT DESCRIPTION | LIQUID PLASMA, IRRADIATED | | + + + + | PRODUCT UNIT # | [id number] | | + + + + | UNIT ABO | A | | + + + + | UNIT RH | NEG | | + + + + | STATUS OF UNIT | Returned to Blood Bank | | + + + + | EXPIRATION DATE | [id number] | | + + + + | BLOOD TYPE BARCODE | 0600 | | + + + + | BLOOD PRODUCT CODE | [id number] | | + + + + + + + | Specimen | Performing Laboratory | + + + | | [facility], TRANSFUSION MEDICINE [address] | | | [place] [address] | + + + PRODUCT - FRESH FROZEN PLASMA (09/01/2017 9:35 AM) + + + + | Component | Value | Ref Range | + + + + | PRODUCT DESCRIPTION | LIQUID PLASMA, IRRADIATED | | + + + + | PRODUCT UNIT # | [id number] | | + + + + | UNIT ABO | A | | + + + + | UNIT RH | POS | | + + + + | STATUS OF UNIT | Returned to Blood Bank | | + + + + | EXPIRATION DATE | [id number] | | + + + + | BLOOD TYPE BARCODE | 6200 | | + + + + | BLOOD PRODUCT CODE | [id number] | | + + + + + + + | Specimen | Performing Laboratory | + + + | | [facility], TRANSFUSION MEDICINE [address] | | | [place] [address] | + + + PRODUCT - FRESH FROZEN PLASMA (09/01/2017 9:35 AM) + + + + | Component | Value | Ref Range | + + + + | PRODUCT DESCRIPTION | LIQUID PLASMA, IRRADIATED | | + + + + | PRODUCT UNIT # | [id number] | | + + + + | UNIT ABO | A | | + + + + | UNIT RH | POS | | + + + + | STATUS OF UNIT | Presumed Transfused | | + + + + | EXPIRATION DATE | [id number] | | + + + + | BLOOD TYPE BARCODE | 6200 | | + + + + | BLOOD PRODUCT CODE | [id number] | | + + + + + + + | Specimen | Performing Laboratory | + + + | | [facility], TRANSFUSION MEDICINE [address] | | | [place] [address] | + + + PRODUCT - RED CELLS LEUKOREDUCED (09/01/2017 9:35 AM) + + + + | Component | Value | Ref Range | + + + + | PRODUCT DESCRIPTION | -1 RED BLOOD CELL ADENINE-SALINE ADDED | | | | LEUKOCYTE | | + + + + | PRODUCT UNIT # | [id number] | | + + + + | UNIT ABO | O | | + + + + | UNIT RH | POS | | + + + + | STATUS OF UNIT | Returned to Blood Bank | | + + + + | EXPIRATION DATE | [id number] | | + + + + | BLOOD TYPE BARCODE | 5100 | | + + + + | BLOOD PRODUCT CODE | [id number] | | + + + + + + + | Specimen | Performing Laboratory | + + + | | [facility], TRANSFUSION MEDICINE [address] | | | [place] [address] | + + + PRODUCT - RED CELLS LEUKOREDUCED (09/01/2017 9:35 AM) + + + + | Component | Value | Ref Range | + + + + | PRODUCT DESCRIPTION | -1 RED BLOOD CELL ADENINE-SALINE ADDED | | | | LEUKOCYTE | | + + + + | PRODUCT UNIT # | [id number] | | + + + + | UNIT ABO | O | | + + + + | UNIT RH | POS | | + + + + | STATUS OF UNIT | Returned to Blood Bank | | + + + + | EXPIRATION DATE | [id number] | | + + + + | BLOOD TYPE BARCODE | 5100 | | + + + + | BLOOD PRODUCT CODE | [id number] | | + + + + + + + | Specimen | Performing Laboratory | + + + | | [facility], TRANSFUSION MEDICINE [address] | | | [place] [address] | + + + PRODUCT - RED CELLS LEUKOREDUCED (09/01/2017 9:35 AM) + + + + | Component | Value | Ref Range | + + + + | PRODUCT DESCRIPTION | -1 RED BLOOD CELL ADENINE-SALINE ADDED | | | | LEUKOCYTE | | + + + + | PRODUCT UNIT # | [id number] | | + + + + | UNIT ABO | O | | + + + + | UNIT RH | POS | | + + + + | STATUS OF UNIT | Presumed Transfused | | + + + + | EXPIRATION DATE | [id number] | | + + + + | BLOOD TYPE BARCODE | 5100 | | + + + + | BLOOD PRODUCT CODE | [id number] | | + + + + + + + | Specimen | Performing Laboratory | + + + | | [facility], TRANSFUSION MEDICINE [address] | | | [place] [address] | + + + PRODUCT - RED CELLS LEUKOREDUCED (09/01/2017 9:35 AM) + + + + | Component | Value | Ref Range | + + + + | PRODUCT DESCRIPTION | -1 RED BLOOD CELL ADENINE-SALINE ADDED | | | | LEUKOCYTE | | + + + + | PRODUCT UNIT # | [id number] | | + + + + | UNIT ABO | O | | + + + + | UNIT RH | POS | | + + + + | STATUS OF UNIT | Presumed Transfused | | + + + + | EXPIRATION DATE | [id number] | | + + + + | BLOOD TYPE BARCODE | 5100 | | + + + + | BLOOD PRODUCT CODE | [id number] | | + + + + + + + | Specimen | Performing Laboratory | + + + | | [facility], TRANSFUSION MEDICINE [address] | | | [place] [address] | + + + PRODUCT - RED CELLS LEUKOREDUCED (09/01/2017 9:35 AM) + + + + | Component | Value | Ref Range | + + + + | PRODUCT DESCRIPTION | -1 RED BLOOD CELL ADENINE-SALINE ADDED | | | | LEUKOCYTE | | + + + + | PRODUCT UNIT # | [id number] | | + + + + | UNIT ABO | O | | + + + + | UNIT RH | POS | | + + + + | STATUS OF UNIT | Returned to Blood Bank | | + + + + | EXPIRATION DATE | [id number] | | + + + + | BLOOD TYPE BARCODE | 5100 | | + + + + | BLOOD PRODUCT CODE | [id number] | | + + + + + + + | Specimen | Performing Laboratory | + + + | | [facility], TRANSFUSION MEDICINE [address] | | | [place] [address] | + + + PRODUCT - RED CELLS LEUKOREDUCED (09/01/2017 9:35 AM) + + + + | Component | Value | Ref Range | + + + + | PRODUCT DESCRIPTION | -1 RED BLOOD CELL ADENINE-SALINE ADDED | | | | LEUKOCYTE | | + + + + | PRODUCT UNIT # | [id number] | | + + + + | UNIT ABO | O | | + + + + | UNIT RH | POS | | + + + + | STATUS OF UNIT | Presumed Transfused | | + + + + | EXPIRATION DATE | [id number] | | + + + + | BLOOD TYPE BARCODE | 5100 | | + + + + | BLOOD PRODUCT CODE | [id number] | | + + + + + + + | Specimen | Performing Laboratory | + + + | | [facility], TRANSFUSION MEDICINE [address] [place] [address] | | | [place] [address] | + + + CBC (HEMOGRAM) ONLY [...] | + + + | Blood | [facility], CORE [address] | | | [place] [address] | + + + RENAL FUNCTION SET [...] | >60 | >60 mL/min | | BAHRAINI | | | + + + + | EGFR NON | >60 | >60 mL/min | | -BAHRAINI | | | + + + + [...] | + + + | Blood | [facility] [address] | | | [place] [address] | + + + + + | [...] | | ------ CBC (HEMOGRAM) | | ONLY[[id number]] Abnormal Final | | result Please view results for these tests on the | | individual orders. | + + LACTATE (09/01/2017 9:35 AM) + +-------+ + | Component | Value | Ref Range | + +-------+ + | LACTATE | 2.5 | mmol/L | + +-------+ + + + + | Specimen | Performing Laboratory | + + + | Blood | [facility], CORE [address] [place] [address] | | | [place] [address] | + + + + + | [...] + + | Blood | [facility] [address] | | | [place] [address] | + + + X-RAY PORTABLE CHEST 1 VIEW (09/01/2017 9:18 AM) + + + | Specimen | Performing Laboratory | + + + | | [facility] VOICE RECOGNITION | + + + + + | Narrative | + + | EXAM: TX CHEST 1 VIEW HISTORY: Intubated COMPARISON: 08/31/17 [...] Interface - 09/02/2017 1:23 PM PDT EXAM: TX CHEST 1 | | VIEW HISTORY: IntubatedCOMPARISON: [...] Note | + + | 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, [employer] Res In Interface - 09/01/2017 1:40 PM [...] + + | PRODUCT UNIT # | [id number] | | + + + + | UNIT ABO | O | | + + + + | UNIT RH | POS | | + + + + | STATUS OF UNIT | Presumed Transfused | | + + + + | EXPIRATION DATE | [id number] | | + + + + | BLOOD TYPE BARCODE | 5100 | | + + + + | BLOOD PRODUCT CODE | [id number] | | + + + + + + + | Specimen | Performing Laboratory | + + + | | [facility], TRANSFUSION MEDICINE [id number] | | | [place] [facility] [place] [address] | + + + PRODUCT - RED CELLS LEUKOREDUCED (09/01/2017 9:08 AM) + + + + | Component | Value | Ref Range | + + + + | PRODUCT DESCRIPTION | -1 RED BLOOD CELL ADENINE-SALINE ADDED | | | | LEUKOCYTE | | + + + + | PRODUCT UNIT # | [id number] | | + + + + | UNIT ABO | O | | + + + + | UNIT RH | POS | | + + + + | STATUS OF UNIT | Presumed Transfused | | + + + + | EXPIRATION DATE | [id number] | | + + + + | BLOOD TYPE BARCODE | 5100 | | + + + + | BLOOD PRODUCT CODE | [id number] | | + + + + + + + | Specimen | Performing Laboratory | + + + | | [facility], TRANSFUSION MEDICINE [address] | | | [place] [address] | + + + PRODUCT - RED CELLS LEUKOREDUCED (09/01/2017 9:08 AM) + + + + | Component | Value | Ref Range | + + + + | PRODUCT DESCRIPTION | -1 RED BLOOD CELL ADENINE-SALINE ADDED | | | | LEUKOCYTE | | + + + + | PRODUCT UNIT # | [id number] | | + + + + | UNIT ABO | O | | + + + + | UNIT RH | POS | | + + + + | STATUS OF UNIT | Presumed Transfused | | + + + + | EXPIRATION DATE | [id number] | | + + + + | BLOOD TYPE BARCODE | 5100 | | + + + + | BLOOD PRODUCT CODE | [id number] | | + + + + + + + | Specimen | Performing Laboratory | + + + | | [facility], TRANSFUSION MEDICINE [address] [place] [address] | | | [place] [address] | + + + PRODUCT - RED CELLS LEUKOREDUCED (09/01/2017 9:08 AM) + + + + | Component | Value | Ref Range | + + + + | PRODUCT DESCRIPTION | -1 RED BLOOD CELL ADENINE-SALINE ADDED | | | | LEUKOCYTE | | + + + + | PRODUCT UNIT # | [id number] | | + + + + | UNIT ABO | O | | + + + + | UNIT RH | POS | | + + + + | STATUS OF UNIT | Presumed Transfused | | + + + + | EXPIRATION DATE | [id number] | | + + + + | BLOOD TYPE BARCODE | 5100 | | + + + + | BLOOD PRODUCT CODE | [id number] | | + + + + + + + | Specimen | Performing Laboratory | + + + | | [facility], TRANSFUSION MEDICINE [address] | | | [place] [address] | + + + PRODUCT - FRESH FROZEN PLASMA (09/01/2017 9:08 AM) + + + + | Component | Value | Ref Range | + + + + | PRODUCT DESCRIPTION | PLASMA THAWED | | + + + + | PRODUCT UNIT # | [id number] | | + + + + | UNIT ABO | B | | + + + + | UNIT RH | POS | | + + + + | STATUS OF UNIT | Presumed Transfused | | + + + + | EXPIRATION DATE | [id number] | | + + + + | BLOOD TYPE BARCODE | 7300 | | + + + + | BLOOD PRODUCT CODE | [id number] | | + + + + + + + | Specimen | Performing Laboratory | + + + | | [facility], TRANSFUSION MEDICINE [address] | | | [place] [address] | + + + PRODUCT - FRESH FROZEN PLASMA (09/01/2017 9:08 AM) + + + + | Component | Value | Ref Range | + + + + | PRODUCT DESCRIPTION | PLASMA THAWED | | + + + + | PRODUCT UNIT # | [id number] | | + + + + | UNIT ABO | B | | + + + + | UNIT RH | POS | | + + + + | STATUS OF UNIT | Presumed Transfused | | + + + + | EXPIRATION DATE | [id number] | | + + + + | BLOOD TYPE BARCODE | 7300 | | + + + + | BLOOD PRODUCT CODE | [id number] | | + + + + + + + | Specimen | Performing Laboratory | + + + | | [facility], TRANSFUSION MEDICINE [address] | | | [place] [address] | + + + PRODUCT - FRESH FROZEN PLASMA (09/01/2017 9:08 AM) + + + + | Component | Value | Ref Range | + + + + | PRODUCT DESCRIPTION | PLASMA THAWED | | + + + + | PRODUCT UNIT # | [id number] | | + + + + | UNIT ABO | B | | + + + + | UNIT RH | POS | | + + + + | STATUS OF UNIT | Presumed Transfused | | + + + + | EXPIRATION DATE | [id number] | | + + + + | BLOOD TYPE BARCODE | 7300 | | + + + + | BLOOD PRODUCT CODE | [id number] | | + + + + + + + | Specimen | Performing Laboratory | + + + | | [facility], TRANSFUSION MEDICINE [address] [place] [address] | | | [place] [address] | + + + PRODUCT - FRESH FROZEN PLASMA (09/01/2017 9:08 AM) + + + + | Component | Value | Ref Range | + + + + | PRODUCT DESCRIPTION | THAWED APHERESIS PLASMA | | + + + + | PRODUCT UNIT # | [id number] | | + + + + | UNIT ABO | B | | + + + + | UNIT RH | POS | | + + + + | STATUS OF UNIT | Presumed Transfused | | + + + + | EXPIRATION DATE | [id number] | | + + + + | BLOOD TYPE BARCODE | 7300 | | + + + + | BLOOD PRODUCT CODE | [id number] | | + + + + + + + | Specimen | Performing Laboratory | + + + | | [facility], [facility] [address] [place] [address] | | | [place] [address] | + + + CT HEAD WO [...] + + | PRODUCT UNIT # | [id number] | | + + + + | UNIT ABO | O | | + + + + | UNIT RH | POS | | + + + + | STATUS OF UNIT | Presumed Transfused | | + + + + | EXPIRATION DATE | [id number] | | + + + + | BLOOD TYPE BARCODE | 5100 | | + + + + | BLOOD PRODUCT CODE | [id number] | | + + + + + + + | Specimen | Performing Laboratory | + + + | | [facility], TRANSFUSION MEDICINE [address] [place] [address] | | | [place] [address] | + + + LACTATE (09/01/2017 5:29 AM) + +-------+ + | Component | Value | Ref Range | + +-------+ + | LACTATE | 1.2 | mmol/L | + +-------+ + + + + | Specimen | Performing Laboratory | + + + | Blood | [facility], CORE [address] | | | [place] [address] | + + + + + | [...] | + + + | Blood | [facility], CORE [address] | | | [place] [address] | + + + MRI SPINE CERVICAL/THORACIC [...] | | injured. Discussed with trauma ICU advisory internship by Dr. Yang at 4:38 AM. I [...] interspinous ligament is injured.Discussed with trauma ICU advisory internship | | by Dr. Yang at 4:38 AM.I have personally reviewed the images and, if necessary, | | edited the report. I agree with the report as now presented. | |3. Extensive soft tissue edema extending into the cervical and upper thoracic interspinous space, suggestive of interspinous ligament is injured. | | | |Discussed with trauma ICU advisory internship by Dr. Yang at 4:38 AM. | [...] | >60 | >60 mL/min | | BAHRAINI | | | + +---------+ + | EGFR NON | >60 | >60 mL/min | | -BAHRAINI | | | + +---------+ + | [...] | + + + | Blood | [facility], CORE [address] | | | [place] [address] | + + + + + | [...] | + + + | Blood | [facility], [facility] [address] | | | [place] [address] | + + + + + | [...] | + + + | Blood | [facility], CORE [address] [facility] | | | [place] [address] | + + + LACTATE (09/01/2017 1:32 AM) + +-------+ + | Component | Value | Ref Range | + +-------+ + | LACTATE | 1.4 | mmol/L | + +-------+ + + + + | Specimen | Performing Laboratory | + + + | Blood | [facility], CORE [address] [facility] [address] | | | [place] [address] | + + + + + | [...] | | ------ CBC (HEMOGRAM) | | ONLY[[id number]] Abnormal Final | | result Please view [...] pleural spaced was performed. A 32 size Lebanese chest tube was placed into the | [...] | ventricles. Discussed with the trauma ICU advisory internship at 12:[address] Yang. | [...] ventricles.Discussed with | | the trauma ICU advisory internship at 12:[address] Yang.I have [...] | | |Discussed with the trauma ICU advisory internship at 12:[address] Yang. | | | | | |I have personally reviewed the images and, if necessary, edited the report. I agree with t he report as now presented. | + + PROCEDURE NOTE (09/01/2017 12:47 AM) + + + | Specimen | Performing Laboratory | + + + | | [facility], [facility] [address] | | | [place] [address] | + + + + + | [...] | + + + | Blood | [facility], CORE [address] [place] [address] | | | [place] [address] | + + + LACTATE (08/31/2017 9:19 PM) + +-------+ + | Component | Value | Ref Range | + +-------+ + | LACTATE | 2.2 | mmol/L | + +-------+ + + + + | Specimen | Performing Laboratory | + + + | Blood | [facility], CORE [address] | | | [place] [address] | + + + + + | Narrative | + + | Reference Range: Venous blood:0.5 - 2.2 mmol/L Critical >= 4.0 mmol/L | | Arterial blood:0.5 - 1.6 mmol/L Critical >= 4.0 mmol/L | + + X-RAY SHOULDER 2 VIEWS LEFT (08/31/2017 8:56 PM) + + + | Specimen | Performing Laboratory | + + + | | [facility] VOICE RECOGNITION | + + + [...] Laboratory | + + + | | [facility] VOICE RECOGNITION | + + + [...] Laboratory | + + + | | [facility] VOICE RECOGNITION | + + + [...] Note | + + | 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, Outfittery In Interface - 09/01/2017 1:50 PM PDT [...] Laboratory | + + + | | [facility] VOICE RECOGNITION | + + + [...] Note | + + | 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, HeribertoChoiceMap Res In Interface - 09/01/2017 1:50 PM [...] | + + + | Blood | [facility], CORE [address] | | | [place] [address] | + + + X-RAY PORTABLE CHEST 1 VIEW (08/31/2017 7:07 PM) + + + | Specimen | Performing Laboratory | + + + | | [facility] VOICE RECOGNITION | + + + + + | Narrative | + + | STUDY: TX CHEST 1 VIEW HISTORY: Trauma COMPARISON: CT [...] Interface - 09/01/2017 1:44 PM PDT STUDY: TX CHEST 1 | | VIEWHISTORY: TraumaCOMPARISON: CT [...] | + + + | Blood | [facility], CORE [address] | | | [place] [address] | + + + CTA NECK W CONTRAST (08/31/2017 6:27 PM) + + + | Specimen | Performing Laboratory | + + + | | [facility] RAD[facility] VOICE RECOGNITION | + + + [...] Note | + + | 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, Outfittery In Interface - 08/31/2017 8:22 PM PDT [...] Laboratory | + + + | | [facility] RAD[facility] VOICE RECOGNITION | + + + [...] rib, nondisplaced-Left | | 1st rib fracture, gedudnnefiye-Ugp-werusmcdz left lateral 8th rib fracture-T12 fracture | [...] Laboratory | + + + | | [facility] RAD[facility] VOICE RECOGNITION | + + + [...] | + + + | Blood | [facility], TRANSFUSION MEDICINE [address] | | | [place] [address] | + + + ABO & RH [...] | + + + | Blood | [facility], TRANSFUSION MEDICINE [address] | | | [place] [address] | + + + TYPE AND SCREEN [...] | ------ ABO & RH | | TYPE[[id number]] F | | inal result ANTIBODY | | SCREEN[[id number]] Fin | | al result Please view [...] | + + + | Blood | [facility], TRANSFUSION MEDICINE [address] | | | [place] [address] | + + + THROMBELASTOGRAPH, POC (08/31/2017 [...] [address] | | | [place] [address] | + + + + + | [...] | + + + | Blood | [facility] [address] | | | [place] [address] | + + + + + | [...] Laboratory | + + + | | [facility], POINT OF CARE TESTS [address] [email or web address] [address] | | | [place] [address] | + + + ED BG-LAC,POC (08/31/2017 [...] [address] | | | [place] [address] | + + + PRODUCT - RED CELLS LEUKOREDUCED (08/31/2017 5:06 PM) + + + + | Component | Value | Ref Range | + + + + | PRODUCT DESCRIPTION | -1 RED BLOOD CELL ADENINE-SALINE ADDED | | | | LEUKOCYTE | | + + + + | PRODUCT UNIT # | [id number] | | + + + + | UNIT ABO | O | | + + + + | UNIT RH | POS | | + + + + | STATUS OF UNIT | Returned to Blood Bank | | + + + + | EXPIRATION DATE | [id number] | | + + + + | BLOOD TYPE BARCODE | 5100 | | + + + + | BLOOD PRODUCT CODE | [id number] | | + + + + + + + | Specimen | Performing Laboratory | + + + | | [facility], TRANSFUSION MEDICINE [address] | | | [place] [address] | + + + PRODUCT - RED CELLS LEUKOREDUCED (08/31/2017 5:06 PM) + + + + | Component | Value | Ref Range | + + + + | PRODUCT DESCRIPTION | -1 RED BLOOD CELL ADENINE-SALINE ADDED | | | | LEUKOCYTE | | + + + + | PRODUCT UNIT # | [id number] | | + + + + | UNIT ABO | O | | + + + + | UNIT RH | POS | | + + + + | STATUS OF UNIT | Presumed Transfused | | + + + + | EXPIRATION DATE | [id number] | | + + + + | BLOOD TYPE BARCODE | 5100 | | + + + + | BLOOD PRODUCT CODE | [id number] | | + + + + + + + | Specimen | Performing Laboratory | + + + | | [facility], TRANSFUSION MEDICINE [address] | | | [place] [address] | + + + PRODUCT - RED CELLS LEUKOREDUCED (08/31/2017 5:06 PM) + + + + | Component | Value | Ref Range | + + + + | PRODUCT DESCRIPTION | -1 RED BLOOD CELL ADENINE-SALINE ADDED | | | | LEUKOCYTE | | + + + + | PRODUCT UNIT # | [id number] | | + + + + | UNIT ABO | O | | + + + + | UNIT RH | POS | | + + + + | STATUS OF UNIT | Returned to Blood Bank | | + + + + | EXPIRATION DATE | [id number] | | + + + + | BLOOD TYPE BARCODE | 5100 | | + + + + | BLOOD PRODUCT CODE | [id number] | | + + + + + + + | Specimen | Performing Laboratory | + + + | | [facility], TRANSFUSION MEDICINE [address] | | | [place] [address] | + + + PRODUCT - RED CELLS LEUKOREDUCED (08/31/2017 5:06 PM) + + + + | Component | Value | Ref Range | + + + + | PRODUCT DESCRIPTION | -1 RED BLOOD CELL ADENINE-SALINE ADDED | | | | LEUKOCYTE | | + + + + | PRODUCT UNIT # | [id number] | | + + + + | UNIT ABO | O | | + + + + | UNIT RH | POS | | + + + + | STATUS OF UNIT | Presumed Transfused | | + + + + | EXPIRATION DATE | [id number] | | + + + + | BLOOD TYPE BARCODE | 5100 | | + + + + | BLOOD PRODUCT CODE | [id number] | | + + + + + + + | Specimen | Performing Laboratory | + + + | | [facility], TRANSFUSION MEDICINE [address] | | | [place] [facility] [place] [address] | + + + PRODUCT - FRESH FROZEN PLASMA (08/31/2017 5:05 PM) + + + + | Component | Value | Ref Range | + + + + | PRODUCT DESCRIPTION | LIQUID PLASMA, IRRADIATED | | + + + + | PRODUCT UNIT # | [id number] | | + + + + | UNIT ABO | A | | + + + + | UNIT RH | POS | | + + + + | STATUS OF UNIT | Presumed Transfused | | + + + + | EXPIRATION DATE | [id number] | | + + + + | BLOOD TYPE BARCODE | 6200 | | + + + + | BLOOD PRODUCT CODE | [id number] | | + + + + + + + | Specimen | Performing Laboratory | + + + | | [facility], TRANSFUSION MEDICINE [address] | | | [place] [facility] [place] [address] | + + + PRODUCT - FRESH FROZEN PLASMA (08/31/2017 5:05 PM) + + + + | Component | Value | Ref Range | + + + + | PRODUCT DESCRIPTION | LIQUID PLASMA, IRRADIATED | | + + + + | PRODUCT UNIT # | [id number] | | + + + + | UNIT ABO | A | | + + + + | UNIT RH | POS | | + + + + | STATUS OF UNIT | Presumed Transfused | | + + + + | EXPIRATION DATE | [id number] | | + + + + | BLOOD TYPE BARCODE | 6200 | | + + + + | BLOOD PRODUCT CODE | [id number] | | + + + + + + + | Specimen | Performing Laboratory | + + + | | [facility], TRANSFUSION MEDICINE [address] | | | [place] [facility] [place] [address] | + + + PRODUCT - FRESH FROZEN PLASMA (08/31/2017 5:05 PM) + + + + | Component | Value | Ref Range | + + + + | PRODUCT DESCRIPTION | LIQUID PLASMA, IRRADIATED | | + + + + | PRODUCT UNIT # | [id number] | | + + + + | UNIT ABO | A | | + + + + | UNIT RH | POS | | + + + + | STATUS OF UNIT | Returned to Blood Bank | | + + + + | EXPIRATION DATE | [id number] | | + + + + | BLOOD TYPE BARCODE | 6200 | | + + + + | BLOOD PRODUCT CODE | [id number] | | + + + + + + + | Specimen | Performing Laboratory | + + + | | [facility], TRANSFUSION MEDICINE [address] | | | [place] [facility] [place] [address] | + + + PRODUCT - FRESH FROZEN PLASMA (08/31/2017 5:05 PM) + + + + | Component | Value | Ref Range | + + + + | PRODUCT DESCRIPTION | LIQUID PLASMA, IRRADIATED | | + + + + | PRODUCT UNIT # | [id number] | | + + + + | UNIT ABO | A | | + + + + | UNIT RH | POS | | + + + + | STATUS OF UNIT | Returned to Blood Bank | | + + + + | EXPIRATION DATE | [id number] | | + + + + | BLOOD TYPE BARCODE | 6200 | | + + + + | BLOOD PRODUCT CODE | [id number] | | + + + + + + + | Specimen | Performing Laboratory | + + + | | [facility], TRANSFUSION MEDICINE [address] | | | [place] [address] | + + + CBC (HEMOGRAM) ONLY [...] | + + + | Blood | [facility], CORE [address] [place] [address] | | | [place] [address] | + + + BASIC METABOLIC SET [...] | >60 | >60 mL/min | | BAHRAINI | | | + +---------+ + | EGFR NON | >60 | >60 mL/min | | -BAHRAINI | | | + +---------+ + | [...] | + + + | Blood | [facility], CORE [address] | | | [place] [address] | + + + + + | [...] | + + + | Blood | [facility], CORE [address] [facility] | | | [place] [address] | + + + + + | [...] | | ------ CBC (HEMOGRAM) | | ONLY[[id number]] Abnormal Final | | result Please view [...] | + + + | Blood | [facility], CORE [address] [facility] | | | [place] [address] | + + + PHOSPHORUS, PLASMA (08/31/2017 4:50 PM) + +-------+ + | Component | Value | Ref Range | + +-------+ + | PHOSPHORUS, PLASMA | 4.0 | 2.4 - 4.7 mg/dL | | (LAB) | | | + +-------+ + + + + | Specimen | Performing Laboratory | + + + | Blood | [facility], CORE [address] [facility] | | | [place] [address] | + + + MAGNESIUM, PLASMA (08/31/2017 4:50 PM) + +---------+ + | Component | Value | Ref Range | + +---------+ + | MAGNESIUM,PLASMA | 1.5 (L) | 1.6 - 2.6 mg/dL | + +---------+ + + + + | Specimen | Performing Laboratory | + + + | Blood | [facility], CORE [address] [facility] [facility] | | | [place] [address] | + + + + + | [...] mL, intravenous, NEEDED, | | | Starting Hso 09/26/17 at 0029, | | | Until [...]
--- OUTSIDE RECORDS SUMMARY | ~2017-12-10 | XMS | Encounter Summary ---
Demographics + + + | Address | [address] | | | [place] [address] | + + + | Home Phone [...] Author + + + | Author | [facility] | + + + | Organization | [facility] | + + + | Address | Unknown | + + + | Phone | Unavailable | + + + Support + + +---------+ + | Name | Relationship | Address | Phone | + + +---------+ + | Kaylie Baig | ECON | Unknown | | + + +---------+ + Care Team Providers + +------+ + | Care Machine Straw Hat Presser Name | Role | Phone | + +------+ + | No Pcp Per Patient | PCP | Unavailable | + +------+ + Encounter Details +--------+ + + + + | Date | Type | Department | Care Team | Description | +--------+ + + + + | 11/05/ | Procedure | 6A Intra Op [facility] | | | | 2018 | Pass | [facility] | | | | | | Admitting Desk | | | | | | Located on the 9th | | | | | | floor [address] [facility] | | | | | | [facility] | | | | | | [place], [place] | | | | | | [address] | | | +--------+ + + + [...]
--- OUTSIDE RECORDS SUMMARY | ~2017-12-10 | XMS | Encounter Summary ---
Demographics + + + | Address | [address] | | | [place] [address] | + + + | Home Phone [...] | Author | [facility] [employer] [facility] | + + + | Organization | [facility] [employer] [facility] | + + + | Address | Unknown | + + + | Phone | Unavailable | + + + Support + + +---------+ + | Name | Relationship | Address | Phone | + + +---------+ + | Kaylie Baig | ECON | Unknown | | + + +---------+ + Care Team Providers + +------+ + | Care Assistant Scientist Name | Role | Phone | [...] Anesthesia | 6A Intra Op [facility] | Mariann Victor, | | | 2017 | Event | [facility] | MEAT [facility]ER [address] [facility] | | | | | Admitting Desk | [facility] | | | | | Located on the 9 | [place], [place] | | | | | floor [address] [place] [address] | [address] | | | | | [facility] | [phone] | | | | | [place], [place] | | | | | | [address] | | | +--------+ + + + + Anesthesia Record + + + + + | Procedure Name | Responsible | Anesthesia Start | Anesthesia Stop Time | | | Anesthesiologist | Time | | + + + + + | CRANIOPLASTY FOR | Awilda Salgado MD | 11/05/17 1537 | 11/05/17 1913 | | REVISION (Right | | | | | Neck) [...] 1 | Pause | | | | 6 | | [...] Hernandez MD; | 10/10/17 0836 by | 11/05/171701 by | | on | Right; head- parietal; 11/05/17; | Katrin Watson RN | Debby Lewis, | | | 1702 | | RN | +--------+ + + + | Incisi | 10/10/17; 1039; Tammy CABRERA; | 10/10/179 by | 11/17/17 0200 by | | [...] | | | | Lumen | Yes; [id number]; 11/09/17; 1154; | | | | | Per order | | | +--------+ + + + | Drain | 11/05/17; 173; Dr Aiken; Right; | 11/05/17 1735 by | 11/07/17 1700 by | | | head; 11/07/17; 1700; Other | Debby Lewis, | Annita Gray RN | | | (Comment) (removed by neuro ) | RN | | +--------+ + + + in [...] fileas of this encounter Results WALDO ISLAS (11/05/2017 4:31 PM) + + | Narrative | + + | Mariann Victor CRNA 11/05/2017 4:36 PM Procedure Reason for Intubation: | | For surgical procedure, Location Performed: [place] , Patient was preoxygenated Mask | | Ventilation Grade 1 - Ventilated by mask Intubation Laryngoscopic view: Grade II, | | Fiberoptics used: Glidescope , Number of Attempts: 1, Positive for EtCO2: Yes, Breath | | sounds: Bilateral and equal ETT Ett Adult: Single-lumen cuffed ETT Size: | | 7.5 ETT secured with: adhesive tape Depth at Lip: 23 Cm Airway leak: | | No Narrative Attending physically present Atraumatic intubation, lips, | | teeth, nose in pre-op condition. | + + in this encounter Visit Diagnoses Not on filein this encounter Administered Medications + +--------+ + +------+------+ | Medication Order | MAR | Action | Dose | Rate | Site | | | Action | Date | | | | + +--------+ + +------+------+ | ceFAZolin (ANCEF) injection | Given | | 2,000 mg | | | | intravenous, INTRAPROCEDURE PRN, | | 8 16:18 | | | | | Starting 11/05/17 at 1618, | | PDT | | | | | Until e 11/05/17 at 1905 | | | | | | + +--------+ + +------+------+ +---+---+ | | | +---+---+ + +-------+ +-------+---+---+ | dexamethasone (DECADRON) | Given | | 10 mg | | | | injection intravenous, | | 8 16:32 | | | | | INTRAPROCEDURE PRN, Starting Tue | | PDT | | | | | 11/05/17 at 1632, Until Tue | | | | | | | 11/05/17 at 1905 | | | | | | + +-------+ +-------+---+---+ +---+---+ | | | +---+---+ + +-------+ +---------+---+---+ | fentaNYL citrate (PF) | Given | | 100 mcg | | | | (SUBLIMAZE) injection | | 8 16:41 | | | | | INTRAPROCEDURE PRN, Starting Tue | | PDT | | | | | 11/05/17 at 1625, Until Tue | | | | | | | 11/05/17 at 1905 | | | | | | + +-------+ +---------+---+---+ +-------+ +--------+---+---+ | Given | | 50 mcg | | | | | 8 17:37 | | | | | | PDT | | | | +-------+ +--------+---+---+ | Given | | 50 mcg | | | | | 8 17:55 | | | | | | PDT | | | | +-------+ +--------+---+---+ +---+---+ | | | +---+---+ + +-------+ +--------+---+---+ | glycopyrrolate (SADIQ) | Given | | 0.2 mg | | | | injection INTRAPROCEDURE PRN, | | 8 17:45 | | | | | Starting 11/05/17 at 1745, | | PDT | | | | | Until 11/05/17 at 1905 | | | | | | + +-------+ +--------+---+---+ +-------+ +--------+---+---+ | Given | | 0.2 mg | | | | | 8 17:55 | | | | | | PDT | | | | +-------+ +--------+---+---+ +---+---+ | | | +---+---+ + +-------+ +-------+---+---+ | lidocaine (XYLOCAINE) 10 mg/mL | Given | | 50 mg | | | | (1 %) injection INTRAPROCEDURE | | 8 15:50 | | | | | PRN, Starting 11/05/17 at | | PDT | | | | | 1550, Until 11/05/17 at 1905 | | | | | | + +-------+ +-------+---+---+ +---+---+ | | | +---+---+ + +-------+ +------+---+---+ | midazolam (VERSED) injection | Given | | 2 mg | | | | INTRAPROCEDURE PRN, Starting Tue | | 8 15:37 | | | | | 11/05/17 at 1537, Until Tue | | PDT | | | | | 11/05/17 at 1905 | | | | | | + +-------+ +------+---+---+ +---+---+ | | | +---+---+ + +-------+ +------+---+---+ | neostigmine (PROSTIGMIN) | Given | | 1 mg | | | | injection intravenous, | | 8 17:45 | | | | | INTRAPROCEDURE PRN, Starting Tue | | PDT | | | | | 11/05/17 at 1745, Until Tue | | | | | | | 11/05/17 at 1905 | | | | | | + +-------+ +------+---+---+ +-------+ +------+---+---+ | Given | | 1 mg | | | | | 8 17:55 | | | | | | PDT | | | | +-------+ +------+---+---+ +---+---+ | | | +---+---+ + +-------+ +------+---+---+ | ondansetron (ZOFRAN) injection | Given | | 4 mg | | | | INTRAPROCEDURE PRN, Starting Tue | | 8 17:45 | | | | | 11/05/17 at 1745, Until Tue | | PDT | | | | | 11/05/17 at 1905 | | | | | | + +-------+ +------+---+---+ +---+---+ | | | +---+---+ + +-------+ +---------+---+---+ | PHENYLEPHrine 100 mcg/mL IV | Given | | 100 mcg | | | | syringe INTRAPROCEDURE PRN, | | 8 16:15 | | | | | Starting 11/05/17 at 1623, | | PDT | | | | | Until 11/05/17 at 1905 | | | | | | + +-------+ +---------+---+---+ +-------+ +---------+---+---+ | Given | | 100 mcg | | | | | 8 16:23 | | | | | | PDT | | | | +-------+ +---------+---+---+ | Given | | 100 mcg | | | | | 8 16:30 | | | | | | PDT | | | | +-------+ +---------+---+---+ +---+---+ | | | +---+---+ + +-------+ +--------+---+---+ | propofol INTRAPROCEDURE PRN, | Given | | 120 mg | | | | Starting 11/05/17 at 1550, | | 8 15:50 | | | | | Until 11/05/17 at 1905 | | PDT | | | | + +-------+ +--------+---+---+ +-------+ +-------+---+---+ | Given | | 30 mg | | | | | 8 16:30 | | | | | | PDT | | | | +-------+ +-------+---+---+ +---+---+ | | | +---+---+ + +-------+ +-------+---+---+ | rocuronium (ZEMURON) injection | Given | | 30 mg | | | | INTRAPROCEDURE PRN, Starting Tue | | 8 16:01 | | | | | 11/05/17 at 1629, Until Tue | | PDT | | | | | 11/05/17 at 1905 | | | | | | + +-------+ +-------+---+---+ +-------+ +-------+---+---+ | Given | | 20 mg | | | | | 8 16:29 | | | | | | PDT | | | | +-------+ +-------+---+---+ +---+---+ | | | +---+---+ + +---------+ +---+---+---+ | sodium chloride 0.9 % (NS) IV | New Bag | | | | | | infusion INTRAPROCEDURE | | 8 15:30 | | | | | CONTINUOUS PRN, Starting Tue | | PDT | | | | | 11/05/17 at 1530, Until Tue | | | | | | | 18 at 1905 | | | | | | + +---------+ +---+---+---+ + + +---+---+---+ | given by anesthesiology | | | | | | | 8 17:33 | | | | | | PDT | | | | + + +---+---+---+ | given by anesthesiology | | | | | | | 8 19:13 | | | | | | PDT | | | | + + +---+---+---+ +---+---+ | | | +---+---+ + +-------+ +--------+---+---+ | SUCCINYLCHOLINE CHLORIDE 20 | Given | | 120 mg | | | | MG/ML INJ (PROSED/RSI) | | 8 15:50 | | | | | INTRAPROCEDURE PRN, Starting Tue | | PDT | | | | | 11/05/17 at 1550, Until Tue | | | | | | | 11/05/17 at 1905 | | | | | | + +-------+ +--------+---+---+ +-------+ +-------+---+---+ | Given | | 30 mg | | | | | 8 16:00 | | | | | | PDT | | | | +-------+ +-------+---+---+ +---+---+ | | | +---+---+ in this encounter"
--- OUTSIDE RECORDS SUMMARY | ~2017-12-10 | XMS | Encounter Summary ---
Demographics + + + | Address | [address] | | | [place] [address] | + + + | Home Phone [...] + + | Author | [facility] [employer] [facility] | + + + | Organization | [facility] [employer] [facility] | [...] Team Providers + +------+ + | Care Applique Sewer Name | Role | Phone | + +------+ + | No Pcp Per Patient | PCP | Unavailable | + +------+ + Encounter Details +--------+ + + + + | Date | Type | Department | Care Team | Description | +--------+ + + + + | 11/11/ | Procedure | [facility] [address] | | | | 2017 | Pass | [address] | | | | | | [id number] | | | | | | [facility], | | | | | | [place] [address] | | | | | | [phone] | | | +--------+ + + + [...]
--- OUTSIDE RECORDS SUMMARY | ~2017-12-10 | XMS | Encounter Summary ---
Demographics + + + | Address | [address] | | | [place] [address] | + + + | Home Phone [...] + + | Author | [facility] [employer] [facility] | + + + | Organization | [facility] [employer] [facility] | + + + | Address | Unknown | + + + | Phone | Unavailable | + + + Support + + +---------+ + | Name | Relationship | Address | Phone | + + +---------+ + | Kaylie Baig | ECON | Unknown | | + + +---------+ + Care Team Providers + +------+ + | Care Qa Test Lead Name | Role | Phone | + [...] | | | | | Procedures | [place], [place] | [place] | | | | | REQUEST TO | [id number] | [address] | | | | | SURGERY | Phone: | Phone: | | | | | DYE MACHINE OPERATOR | [phone] | [phone] | | | | | TX REPLACE | Fax: | Fax: | | | | | SKULL | [phone] | [phone] | | | | | PLATE/FLAP | | | | | | | TX REPAIR | | | | | | | SKULL | | | | | | | DEFECT,UP TO | | | | | | | 5CM TX | | | | | | | REPAIR SKULL | | | | | | | DEFECT,>5CM | | | | | | | [place] | | | | | | | [...] + + + + | 10/31/ | Lacing Operator | [facility] | Magdiel Stock MD | Skull defect | | 2018 | | [facility] [address] | [address] | (Primary Dx) | | | | [place], [place] | [place], | | | | | [address] | [place] [address] | | | | | [phone] | [phone] | | | | | | | [...] on fileas of this encounter Visit Diagnoses + + | Diagnosis | + + | Skull defect - Primary | + + | Unspecified acquired deformity of head | + +"
--- OUTSIDE RECORDS SUMMARY | ~2017-12-10 | XMS | Encounter Summary ---
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 with the assessement and plan a s outlined in her note. Will consider changing to bolus TF. Plan Gabriel-oconnor tube next week. Chaz Munoz MD, FACS Medical Information Officer, Trauma, Critical Care and Acute Care [...] p atient unable to come out fo SURFACE GRINDER for now Resolved or chronic issues/Plan: [...] issues, including restraints. Venita Pruitt PA-[place] [phone] [place] [phone] [facility] & [place] [address] [place] [address] [phone] Associated attestation - Em Cunningham MD - 10/17/2017 10:13 AM PDTI was present and rou nded with the Advanced Practice Provider today . I interviewed and examined the patient. I reviewed the history, as documented today. I agree with the ASHLEY assessment and plan. TBI has remained stable. On lovenox. Will continue haldol per psych.. EM CUNNINGHAM MD [facility] [address] [place] [address] [place] [address] Venita Pruitt PA-C - 10/05/2017 8:38 AM [...] p atient unable to come out fo SURFACE GRINDER for now Resolved or chronic issues/Plan: [...] issues, including restraints. Venita Pruitt PA-[place] [phone] [place] [phone] [facility] [place] [address] [place] [facility] [place] [address] [phone] Associated attestation - Shlomo Rosenthal MD - 10/06/2017 7:28 AM PDTFormatting of this note m ay be different from the original. I saw and examined Berlin Temple ([id number]) with the TRAUMA team on 10/05/2017. I [...] incen tive spirometry for pulmonary toliet. manager corporate for disposition planning and placement. Shlomo Rosenthal MD Axle Bearing Polisher Division of Trauma and Critical Care Venita [...] (baseline from previous TBI ) Neck: in [place] collar Respiratory: CTA b.l CV: RRR GI: [...] p atient unable to come out fo SURFACE GRINDER for now Resolved or chronic issues/Plan: [...] issues, including restraints. Venita Pruitt PA-[place] [phone] [place] [phone] [facility] & [address] [place] [facility] [phone] Associated attestation - Fidelina Shields MD - [...] only enteral access. Fidelina Shields MD Medical Information Officer Division of Trauma, Critical Care and Acute Care Surgery Office: [phone] Pager: [phone] Leonor Torres ACNP - 10/03/2017 3:13 PM [...] (baseline from previous TBI ) Neck: in [place] collar Respiratory: CTA bilaterally, no distress CV: [...] p atient unable to come out fo SURFACE GRINDER for now Resolved or chronic issues/Plan: [...] by patient, but wound remains duke n/dry/intact. Hallieford removed 09/17. #Left hemothorax Chest tube placed [...] PDTAttending: I saw and examined Berlin Temple ([id number]) with CB Hair on morning rounds 10/03 [...] a significant issue. Fidelina Shields MD Medical Information Officer Division of Trauma, Critical Care and Acute Care Surgery Office: [phone] Pager: [phone] July Banegas PA-C - 10/03/2017 12:58 PM [...] the C-collar when in bed then the SURFACE GRINDER when out of bed until 12/01/17. JULY BANEGAS PA-C [facility] [address] [place] [address] Associated attestation - Magdiel Stock MD - 10/04/2017 6:02 PM PDTI performed a history a nd physical examination of the patient and discussed the management with the advanced practi ce provider, July Banegas PA-C. I reviewed the advanced practice provider's note and agree w ith the plan of care as documented. Continue cervical collar and SURFACE GRINDER for 3 months to ensure fracture healing and prevent development of post-fracture cervical kyphosis. Magdiel Stock MD Medical Information Officer Department of Neurological Surgery [facility] [place] Leoamalia Sherine Cleary, AGACNP - 10/02/2017 12:54 PM PDTFormatting of [...] (baseline from previous TBI ) Neck: in [place] collar Respiratory: CTA bilaterally, lungs symmetrical, equal chest wall rise, no retractions CV: RRR GI: non tender, soft, active BS, last BM 09/30 : Patient voiding without difficulty Extremities: no peripheral edema, wiggles toes and toes pink and well perfused Musculoskeletal: 5/5 sand and gravel plant operator strength on right, 3/5 sand and gravel plant operator strength on left FEN: on TPN, transitioning [...] AMS & delirium - numerous evaluations by SMOOTH STUCCO RESURFACER with trials of PO - now s/p [...] . - C-collar at all times, use SURFACE GRINDER when OOB - Follow-up with Neurosurgery on 10/21 with repeat X-rays #Blunt abdominal trauma #Splenic laceration S/p laparotomies x2. Fascia closed 09/02 Wound vac removed by patient, but wound remains duke n/dry/intact. Hallieford removed 09/17. #Left hemothorax Chest tube placed [...] will decrease scheduled [place]dol[place] Pg [phone] Associated attestation - Fidelina Shields MD - 10/02/2017 4:40 PM PDTAttending: I saw and examined Berlin Temple ([id number]) with KESHAWN Alexander on mornin g rounds [...] back to midline position. May need terminal press operator enteral access , but is ~4 weeks s/p damage control laparotomy and risk is higher now than it will be in 7- 14 days and if swallow is not improving then will place prior to DC Fidelina Shields MD Medical Information Officer Division of Trauma, Critical Care and Acute Care Surgery Office: [phone] Pager: [phone] Sherine Sarmiento AGACNP - 10/01/2017 7:27 AM [...] (baseline from previous TBI ) Neck: in [place] collar Respiratory: CTA bilaterally, lungs symmetrical, equal chest wall rise, no retractions CV: RRR GI: non tender, soft, active BS, last BM 09/30 : Patient voiding without difficulty Extremities: no peripheral edema, wiggles toes and toes pink and well perfused Musculoskeletal: 5/5 sand and gravel plant operator strength on right, 3/5 sand and gravel plant operator strength on left FEN: on TPN Heme/ID: [...] AMS & delirium - numerous evaluations by SMOOTH STUCCO RESURFACER with trials of PO - now s/p modified barium swallow x2 which indicates aspiration - continue NPO - SMOOTH STUCCO RESURFACER reports that patient working on tongue strength [...] . - C-collar at all times, use SURFACE GRINDER when OOB - Follow-up with Neurosurgery [...] trauma team and [place]g [id number] Associated attestation - Fidelina Shields MD - 10/02/2017 4:40 PM PDTAttending: I saw and examined Berlin Temple ([id number]) with KESHAWN Alexander on mornin g rounds 10/01/17 and agree with the assessment and plan as outlined in this note and partic ipated in the planning of care. Will trial DHT placement today, CT head unchanged. Suspect somnolence is medication side ef fect and, if persistent, may need to wean antipsychotic doses. Fidelina Shields MD Medical Information Officer Division of Trauma, Critical Care and Acute Care Surgery Office: [phone] Pager: [phone] Christian Kelley PA-C - 09/30/2017 12:21 PM [...] Fixed and dilated on left Neck: in [place] collar Respiratory: CTA bilaterally, lungs symmetrical, equal chest wall rise, no retractions CV: RRR GI: non tender, soft, active BS, last BM 09/30 : Patient voiding without difficulty Extremities: no peripheral edema, wiggles toes and toes pink and well perfused Musculoskeletal: 5/5 sand and gravel plant operator strength on right, 3/5 sand and gravel plant operator strength on left FEN: on TPN Heme/ID: [...] AMS & delirium - numerous evaluations by SMOOTH STUCCO RESURFACER with trials of PO - now s/p modified barium swallow x2 which indicates aspiration - continue NPO - SMOOTH STUCCO RESURFACER reports that patient working on tongue strength [...] . - C-collar at all times, use SURFACE GRINDER when OOB - Follow-up with Neurosurgery [...] PDTAttending: I saw and examined Berlin Temple ([id number]) with Christian Kelley PA-C on morning rounds 09/30 and agree with the assessment and plan as outlined in this note and participated in the planning of care. Mentally slower this morning, but non-focal. Received haldol overnight for sleep. Repeat head CT was unchanged so suspect etiology of slowed responsiveness is the antipsychotic dose . SMOOTH STUCCO RESURFACER believes that, once collar off, may be able to take PO more effectively and thus will hold off on surgical feeding access. TPN is a temporary solution and if patient remains kaye nable will trial DHT tomorrow. Working with psychiatry for medication recommendations. Fidelina Shields MD Medical Information Officer Division of Trauma, Critical Care and Acute Care Surgery Office: [phone] Pager: [phone] July Banegas PA-C - 09/30/2017 8:23 AM PDTBrief Neurosurgery Wound Check: Wound is dry, without erythema, not fluctuant. No acute swelling. Nylon in place. Will plan to follow peripherally for wound checks and remove nylons on 10/09. JULY BANEGAS PA-C [facility] [address] [place] [address] Christian Kelley PA-C - 09/29/2017 7:15 AM [...] and EOMs intact to exam Neck: in [place] collar Respiratory: CTA bilaterally, lungs symmetrical, equal [...] AMS & delirium - numerous evaluations by SMOOTH STUCCO RESURFACER with trials of PO - now s/p [...] . - C-collar at all times, use SURFACE GRINDER when OOB - Follow-up with Neurosurgery [...] PDTAttending: I saw and examined Berlin Temple ([id number]) with Christian Kelley PA-C on morning rounds [...] TPN is not an opt imal terminal press operator strategy, would prefer not to place surgical feeding tube if possible given r elatively recent damage control laparotomy and high risk of Mr. Temple pulling it out. Have tried DHT several times and it seems to worsen delirium and he pulls it out frequently. Tit ration of haldol in conjunction with psychiatry. Fidelina Shields MD Medical Information Officer Division of Trauma, Critical Care and Acute Care Surgery Office: [phone] Pager: [phone] Christian Kelley PA-C - 09/28/2017 1:01 PM [...] he said, who, ariel? And then the PHARMACIST INTERN helped him make a call to her. [...] and EOMs intact to exam Neck: in [place] collar Respiratory: CTA bilaterally, lungs symmetrical, equal [...] very agitated today. - EKG today with Alpine QTc calculated to be 428 - optimize [...] AMS & delirium - numerous evaluations by SMOOTH STUCCO RESURFACER with trials of PO - now s/p [...] . - C-collar at all times, use SURFACE GRINDER when OOB - Follow-up with Neurosurgery on 10/21 with repeat X-rays #Blunt abdominal trauma #Splenic laceration S/p laparotomies x2. Fascia closed 09/02 Wound vac removed by patient, but wound remains duke n/dry/intact. Hallieford removed 09/17. #Left hemothorax Chest tube placed [...] to communicate more toyoselin Munoz MD, FACS Medical Information Officer, Trauma, Critical Care and Acute Care Surgery Chaz Munoz MD - 09/28/2017 10:13 AM PDTTrauma Staff Seen and examined this AM with team. I have concerns abotu behaviour, as he is consistently threatening RN and ancillary staff, even attempting swings. Behavior seems worse at night. I would favor increasing night time Haldol dose, and following EKGs. Chaz Munoz MD, FACS Medical Information Officer, Trauma, Critical Care and Acute Care [...] Dallin Bourgeois MD Neurosurgery PGY1 | Pager #[phone] Christian Kelley PA-C - 09/27/2017 7:31 AM [...] able to have a linear conversation briefly SMOOTH STUCCO RESURFACER requesting repeat barium swallow Current meds: I [...] incision healing , suture c/d/I Neck: in SURFACE GRINDER Respiratory: unlabored on room air, lungs [...] AMS & delirium - numerous evaluations by SMOOTH STUCCO RESURFACER with trials of PO - now s/p [...] . - C-collar at all times, use SURFACE GRINDER when OOB - Follow-up with Neurosurgery on 10/21 with repeat X-rays #Blunt abdominal trauma #Splenic laceration S/p laparotomies x2. Fascia closed 09/02 Wound vac removed by patient, but wound remains duke n/dry/intact. Hallieford removed 09/17. #Left hemothorax Chest tube placed [...] NSG request DIANNA DYERC Associated attestation - Em Cunningham [...] cotinue TPN for now. EM CUNNINGHAM MD [facility] [address] [place] [address] Christian Kelley PA-C - 09/26/2017 6:48 AM [...] posterior scalp crani incision c/d/I Neck: in [place] collar Respiratory: unlabored on room air CV: [...] AMS & delirium - numerous evaluations by SMOOTH STUCCO RESURFACER with trials of PO - now s/p [...] . - C-collar at all times, use SURFACE GRINDER when OOB - Follow-up with Neurosurgery on 10/21 with repeat X-rays #Blunt abdominal trauma #Splenic laceration S/p laparotomies x2. Fascia closed 09/02 Wound vac removed by patient, but wound remains duke n/dry/intact. Hallieford removed 09/17. #Left hemothorax Chest tube placed [...] repaired at bedside. Continue NPO and TPN. ME CUNNINGHAM MD [facility] [address] [place] [address] Christian Kelley PA-C - 09/25/2017 7:49 AM [...] HEENT: EOMs intact to exam Neck: in SURFACE GRINDER brace Respiratory: unlabored on room air [...] AMS & delirium - numerous evaluations by SMOOTH STUCCO RESURFACER with trials of PO - now s/p [...] . - C-collar at all times, use SURFACE GRINDER when OOB - Follow-up with Neurosurgery on 10/21 with repeat X-rays #Blunt abdominal trauma #Splenic laceration S/p laparotomies x2. Fascia closed 09/02 Wound vac removed by patient, but wound remains duke n/dry/intact. Hallieford removed 09/17. #Left hemothorax Chest tube placed [...] LFTS wnl. Continue TPN. EM CUNNINGHAM MD [facility] [address] [place] [address] Christian Kelley PA-C - 09/24/2017 11:07 AM [...] with agitation Having difficulty swallowing again - SMOOTH STUCCO RESURFACER to re-eval and obtain barium swallow Current [...] HEENT: EOMs intact to exam Neck: in SURFACE GRINDER brace Respiratory: CTA bilaterally, lungs symmetrical, equal chest wall rise, no retractions CV: RRR GI: non distended, last BM 09/23 : good urine output Extremities: SCD's in place, no peripheral edema, wiggles toes and toes pink and well perfu sed Musculoskeletal: 5/5 strength in bilateral sand and gravel plant operator (but with slightly weaker on left) , [...] likely 2/2 AMS & delirium - Failed SMOOTH STUCCO RESURFACER eval 09/19 & 09/20, made NPO & dobhoff reinserted 09/21 but pulled overnight - Per SMOOTH STUCCO RESURFACER on 09/21, ok for therapeutic pureed with [...] . - C-collar at all times, use SURFACE GRINDER when OOB - Follow-up with Neurosurgery on 10/21 with repeat X-rays #Blunt abdominal trauma #Splenic laceration S/p laparotomies x2. Fascia closed 09/02 Wound vac removed by patient, but wound remains duke n/dry/intact. Hallieford removed 09/17. #Left hemothorax Chest tube placed [...] rivers care, continue TPN, barium swallow pending DIANNA DYERC Associated attestation - Em Cunningham [...] Start abx for dehiscence. EM CUNNINGHAM MD [facility] [address] [place] [address] Ginette Campos PA-C - 09/24/2017 9:31 AM [...] extremities Unable to assess drift. Motor: Machine Striper Bicep Tricep Delt R 5 5 5 [...] further questions or concerns. Ginette Campos PA-C [facility] [address] [place] [address] Pg [phone] Sherine Sarmiento, [facility] - 09/23/2017 6:32 AM PDTFormatting of [...] hiscence, draining minimal serosang fluid Neck: in SURFACE GRINDER brace Respiratory: unlabored on room air [...] PRN seroquel dose QHS for insomnia/restlessness at [facility] - Repeat ECG 09/22 with QTc [...] likely 2/2 AMS & delirium - Failed SMOOTH STUCCO RESURFACER eval 09/19 & 09/20, made NPO & dobhoff reinserted 09/21 but pulled overnight - Per SMOOTH STUCCO RESURFACER on 09/21, ok for therapeutic pureed with [...] . - C-collar at all times, use SURFACE GRINDER when OOB - Follow-up with Neurosurgery on 10/21 with repeat X-rays #Blunt abdominal trauma #Splenic laceration S/p laparotomies x2. Fascia closed 09/02 Wound vac removed by patient, but wound remains duke n/dry/intact. Hallieford removed 09/17. #Left hemothorax Chest tube placed [...] dysphagia & delir ium improves Sherine Sarmiento, [facility] Pg [phone] Dallin Bourgeois MD - 09/22/2017 8:03 AM [...] Dallin Bourgeois MD Neurosurgery PGY1 | Pager #[phone] Sherine Sarmiento AGACN - 09/22/2017 6:52 AM PDTFormatting of [...] 24hr events: - Therapeutic purees initiated by SMOOTH STUCCO RESURFACER yesterday - Trickle feeds via Dobbhoff, pt pulled Dobbhoff yesterday evening- not replaced - MACHINE SPRING FORMER called around 2129 for new left facial droop (see separate notes), CT revealed increa se in SDH from 12 to 17mm with no change in midline shift. [facility] - NSG and stroke [...] Ct Head Wo Contrast Result Date: 09/22/2017 2199 FINDINGS: BRAIN: Extra-axial fluid underlying the right [...] sluggish. Slight left facial droop Neck: in [place] collar Respiratory: unlabored on room air CV: [...] PRN seroquel dose QHS for insomnia/restlessness at [facility]- - Repeat ECG 09/22 with Q Tc WNL. - Haldol 5mg q12hr prn for severe agitation #Substance abuse, concern for Alcohol withdrawal - CIWA discontinued 09/08, not scoring. - Thiamine & folate started 09/21 #Dysphagia, risk for aspiration #Protein calorie malnutirtion - likely 2/2 AMS & delirium - Failed SMOOTH STUCCO RESURFACER eval 09/19 & 09/20, made NPO & dobhoff reinserted 09/21 but pulled overnight - Per SMOOTH STUCCO RESURFACER on 09/21, ok for therapeutic pureed with [...] . - C-collar at all times, use SURFACE GRINDER when OOB - Follow-up with Neurosurgery on 10/21 with repeat X-rays #Blunt abdominal trauma #Splenic laceration S/p laparotomies x2. Fascia closed 09/02 Wound vac removed by patient, but wound remains duke n/dry/intact. Hallieford removed 09/17. #Left hemothorax Chest tube placed [...] when dysphagia & delirium improves Sherine Sarmiento, [facility] Pg [phone] Associated attestation - Shiva Nieto MD,MPH - 09/22/2017 9:39 PM PDTATTENDING PROGRES S NOTE I personally interviewed and examined the patient today with the trauma team and the nurse practitioner. I participated in the development of and agree with the assessment and plan a s [facility]. Adding seroquel qHS for sleep hygiene. Shiva Nieto MD, MPH Trauma, Critical Care & Acute Care Surgery [facility] [phone] Sami Black - 09/21/2017 10:25 PM PDTBrief [...] in the morning. Plan: -neuro checks; page [phone] for any decline in neurological examination -pain control -Hard C collar at all times and place SURFACE GRINDER prior to mobilizing OOB. Anticipated duration of Collar/SURFACE GRINDER is 12 weeks -repeat CT head for any new decline in neurological exam and page [phone] -NPO at midnight tonight -please hold tonight's planned dose of Lovenox -further recommendations in the morning Sami Black MD, PhD PGY-3 Resident Neurosurgery [id number] estrella AGACNP - 09/21/2017 7:10 AM PDTFormatting [...] Provena placem ent 24hr events: - Failed SMOOTH STUCCO RESURFACER eval again yest morning, continued NPO - [...] reactive. Dobbhoff tube in place Neck: in [place] collar Respiratory: unlabored on room air CV: [...] likely 2/2 AMS & delirium - Failed SMOOTH STUCCO RESURFACER eval 09/19 & 09/20, made NPO & dobhoff reinserted yesterday - Trickle feeds started this am at 20ml/hr, increase very slowly by 10ml every 12 hrs to go al of 75 due to hx of mesenteric hematomas and previous inability to tolerate TF - Per SMOOTH STUCCO RESURFACER today, ok for therapeutic pureed with nectar [...] . - C-collar at all times, use SURFACE GRINDER when OOB - Follow-up with Neurosurgery on 10/21 with repeat X-rays #Blunt abdominal trauma #Splenic laceration S/p laparotomies x2. Fascia closed 09/02 Wound vac removed by patient, but wound remains duke n/dry/intact. Hallieford removed 09/17. #Left hemothorax Chest tube placed [...] & delirium [place] [phone] Associated attestation - Fidelina Shields MD - 09/21/2017 9:36 PM PDTAttending: I saw and examined Berlin Temple ([id number]) with KESHAWN Alexander on mornin g rounds [...] to re-trial PO. Fidelina Shields MD Medical Information Officer Division of Trauma, Critical Care and Acute Care Surgery Office: [phone] Pager: [phone] Sherine Sarmiento AGACNP - 09/20/2017 7:41 AM [...] haldol given yesterday afternoon for agitation - [employer] RESURFACER paged to re-eval in afternoon after concern for aspiration, made NPO by SMO[employer]O RESURFACER - DARNELL SOLANO Current meds: I have [...] right pupil 3 and reactive Neck: in [place] collar Respiratory: unlabored on room air CV: [...] thick/pureed d iet. Made NPO yesterday by S[employer] RESURFACER after concern for aspiration. This is likely 2/2 waxing & wan ing delirium & AMS - S[employer] RESURFACER re-eval today recommend continue NPO d/t overt clinical signs of aspiration - Place Dobbhoff tube and restart feeds, slowly progress to goal - Stop TPN when tolerating tube feeds - S[employer] RESURFACER will follow closely, as his AMS improves [...] . - C-collar at all times, use SURFACE GRINDER when OOB - Follow-up with Neurosurgery on 10/21 with repeat X-rays #Blunt abdominal trauma #Splenic laceration S/p laparotomies x2. Fascia closed 09/02 Wound vac removed by patient, but wound remains duke n/dry/intact. Hallieford removed 09/17. #Left hemothorax Chest tube placed [...] & delirium i [place] Pg [phone] Associated attestation - Fidelina Shields MD - 09/20/2017 9:34 PM PDTAttending: I saw and examined Berlin Temple ([id number]) with KESHAWN Alexander on mornin g rounds [...] planning when able. Fidelina Shields MD Medical Information Officer Division of Trauma, Critical Care and Acute Care Surgery Office: [phone] Pager: [phone] Mary Medrano MD,MPH - 09/19/2017 6:22 AM [...] downgraded from thin to thick liquids by S[employer] RESURFACER Current meds: I have independently reviewed current [...] intact, small Right fluctuant pseudomeningocele Neck: in [place] collar Respiratory: unlabored on room air CV: [...] DHT on09/19. - Cleared for diet by S[employer] RESURFACER, tolerating purees, 749 Calories yesterday - Restart Calorie count: if taking >700 again will be OK for full po diet, otherwise replac e DHT and restart TF - Stop TPN tomorrow regardless - Still considering repeat CT abdomen/pelvis #Dysphagia DHTreplaced overnight 09/07. TF held due to emesis and possible ileus, aspiration risk. DH T pulled overnight on 09/18 - S[employer] RESURFACER as able Resolved or chronic issues/Plan: #BIG 3 TBI #Right synthetic cranioplasty Neurosurgery consulted. Non-operative management. Last head CT 09/12 stable. Expected pseudo meningocele. Left-sided deficits consistent with baseline. - Stat head CT for any neurologic decline #C7 bilateral lamina fractures #C6-T2 spinous process fractures Neurosurgery consulted. Non-operative management. Upright cervical X-rays completed on 09/14 . - C-collar at all times, use SURFACE GRINDER when OOB - Follow-up with Neurosurgery on 10/21 with repeat X-rays #Blunt abdominal trauma #Splenic laceration S/p laparotomies x2. Fascia closed 09/02 Wound vac removed by patient, but wound remains duke n/dry/intact. Hallieford removed 09/17. #Left hemothorax Chest tube placed [...] M.D., M.P.H. Neurological Surgery Resident PGY-1 Pager: [phone] Associated attestation - Fidelina Shields MD - 09/19/2017 1:36 PM PDTAttending: I saw and examined Berlin Temple ([id number]) with the residents on morning rounds 09/19/17 and agree with the assessment and plan as outlined in this note and participated in the plan aashish of care. Improving po intake, will titrate TPN. Plan to DC TPN tomorrow and transition to PO vs PO + TF depending on calorie counts. Once of restraints will begin looking for placement. Fidelina Shields MD Medical Information Officer Division of Trauma, Critical Care and Acute Care Surgery Office: [phone] Pager: [phone] Mary Medrano MD,MPH - 09/18/2017 6:17 AM [...] fluctuant pseudomeningocele,Dobhoff tubein p lace Neck: in [place] collar Respiratory: unlabored on room air CV: [...] holding TF - Cleared for diet by S[employer] RESURFACER, tolerating small quantities of purees - Will need repeat CT A/P within 1-2 days #Hypervolemia I&O approaching even. Appears to have been auto-diuresing. - Continue to monitor urine output - Monitor electrolytes, replete prn #Dysphagia DHTreplaced overnight 09/07. TF held due to emesis and possible ileus, aspiration risk. - S[employer] RESURFACER as able #C7 bilateral lamina fractures #C6-T2 spinous process fractures Neurosurgery consulted. Non-operative management. Upright cervical X-rays completed on 09/14 . - C-collar at all times, use SURFACE GRINDER when OOB - Follow-up with Neurosurgery [...] by patient, but wound remains duke n/dry/intact. Hallieford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 C-REACTIVE PROTEIN (11/25/2017 5:30 AM) + +-------+ + | Component | Value | Ref Range | + +-------+ + | C-REACTIVE PROTEIN | <2.9 | <10.0 mg/L | + +-------+ + + + + | Specimen | Performing Laboratory | + + + | Blood | [facility], CORE [address] | | | [place] [address] | + + + + + | [...] | + + + | Blood | [facility], CORE [address] | | | [place] [address] | + + + + + | [...] | + + + | Blood | [facility], CORE [address] [place] [address] | | | [place], [place] [address] | + + + RENAL FUNCTION SET [...] | >60 | >60 mL/min | | ESTONIAN | | | + + + + | EGFR NON | >60 | >60 mL/min | | -ESTONIAN | | | + + + + [...] | + + + | Blood | [facility], CORE [address] | | | [place] [address] | + + + + + | [...] | + + + | Blood | [facility], CORE [address] | | | [place] [address] | + + + + + | [...] Laboratory | + + + | | [facility] [address] [place] [address] | | | [place] [address] | + + + 12 LEAD ECG [...] Laboratory | + + + | | [facility] [address] [place] [address] | | | [place] [address] | + + + 12 LEAD ECG [...] Laboratory | + + + | | [facility] [address] [place] [address] | | | [place] [address] | + + + 12 LEAD ECG [...] Laboratory | + + + | | [facility] [address] [place] [address] | | | [place] [address] | + + + X-RAY SPINE CERVICAL 3 VIEWS (11/21/2017 2:23 PM) + + + | Specimen | Performing Laboratory | + + + | | [facility] RAD[facility] VOICE RECOGNITION 2 | + [...] | >60 | >60 mL/min | | ESTONIAN | | | + + + + | EGFR NON | >60 | >60 mL/min | | -ESTONIAN | | | + + + + [...] | + + + | Blood | [facility], CORE [address] | | | [place] [address] | + + + + + | [...] | + + + | Blood | [facility], CORE [address] | | | [place] [address] | + + + + + | Narrative | + + | Reference range change effective 12/11/16. | + + VASC LAB VENOUS DUPLEX LOWER EXTREMITY BILAT COMP (11/19/2017 11:05 AM) + + + | Specimen | Performing Laboratory | + + + | | [facility] RAD[facility] VASC US | + + [...] Laboratory | + + + | | [facility] [address] [place] [address] | | | [place] [address] | + + + 12 LEAD ECG [...] Laboratory | + + + | | [facility] [address] [place] [address] | | | [place] [address] | + + + CALCIUM, IONIZED, WHOLE [...] | + + + | Blood | [facility], CORE [address] [facility] [address] | | | [place] [address] | + + + C-REACTIVE PROTEIN (11/18/2017 7:45 AM) + +-------+ + | Component | Value | Ref Range | + +-------+ + | C-REACTIVE PROTEIN | <2.9 | <10.0 mg/L | + +-------+ + + + + | Specimen | Performing Laboratory | + + + | Blood | [facility], CORE [address] | | | [place] [address] | + + + + + | [...] | + + + | Blood | [facility] [address] [place], [place] | | | [address] | + + + TRIGLYCERIDES, PLASMA (11/18/2017 7:45 AM) + +---------+ + | Component | Value | Ref Range | + +---------+ + | TRIGLYCERIDES | 162 (H) | <150 mg/dL | + +---------+ + + + + | Specimen | Performing Laboratory | + + + | Blood | [facility], CORE [address] | | | [place] [address] | + + + + + | [...] | + + + | Blood | [facility], CORE [address] [place] [address] | | | [place] [address] | + + + RENAL FUNCTION SET [...] | >60 | >60 mL/min | | ESTONIAN | | | + + + + | EGFR NON | >60 | >60 mL/min | | -ESTONIAN | | | + + + + [...] | + + + | Blood | [facility], [facility] [address] | | | [place] [address] | + + + + + | [...] | + + + | Blood | [facility], CORE [address] [place] [address] | | | [place] [address] | + + + + + | [...] Laboratory | + + + | | [facility] [address] [place] [address] | | | [place] [address] | + + + 12 LEAD ECG [...] Laboratory | + + + | | [facility] [address] [place] [address] | | | [place] [address] | + + + CBC (HEMOGRAM) ONLY [...] | + + + | Blood | [facility], CORE [address] | | | [place] [address] | + + + + + | [...] | | ------ CBC (HEMOGRAM) | | ONLY[[id number]] Abnormal Final | | result Please view [...] Laboratory | + + + | | [facility] OF CARDIOLOGY [address] [place] [address] | | | [place] [address] | + + + RENAL FUNCTION SET [...] | >60 | >60 mL/min | | ESTONIAN | | | + + + + | EGFR NON | >60 | >60 mL/min | | -ESTONIAN | | | + + + + [...] | + + + | Blood | [facility], CORE [address] | | | [place] [address] | + + + + + | [...] | + + + | Blood | [facility], CORE [address] | | | [place] [address] | + + + + + | [...] Laboratory | + + + | | [facility] [address] [place] [address] | | | [place] [address] | + + + MAGNESIUM, PLASMA (11/13/2017 5:47 AM) + +-------+ + | Component | Value | Ref Range | + +-------+ + | MAGNESIUM,PLASMA | 2.1 | 1.6 - 2.6 mg/dL | + +-------+ + + + + | Specimen | Performing Laboratory | + + + | Blood | [facility], CORE [address] | | | [place] [address] | + + + + + | [...] | >60 | >60 mL/min | | ESTONIAN | | | + + + + | EGFR NON | >60 | >60 mL/min | | -ESTONIAN | | | + + + + [...] | + + + | Blood | [facility], CORE [address] | | | [place] [address] | + + + + + | [...] | + + + | Urine | [facility] [address] [place], [place] | | | [address] | + + + VASC LAB VENOUS [...] | ECG IMPRESSION | Electronically signed by: HUNTERLUZJULIO | | | | 11-13-2017 11:14:26 | | + + + + + + + | Specimen | Performing Laboratory | + + + | | [facility] [address] [place] [address] | | | [place] [address] | + + + CT CHEST, ABDOMEN AND PELVIS W IV CONTRAST (11/11/2017 6:57 PM) + + + | Specimen | Performing Laboratory | + + + | | [facility] RAD[facility] VOICE RECOGNITION 2 | + [...] 11/12/2017 12:09 PM Preliminary: Patrick | | Mgadi Tavares MD Dictation initiated: Patrick Tavares MD [...] | + + + | Blood | [facility], CORE [address] | | | [place] [address] | + + + PROTEIN ELECTROPHORESIS, SERUM, [...] | | | | By: Abel MT- [place] Med [place] | | + + + + + + + | Specimen | Performing Laboratory | + + + | Blood | [facility] [address] [place], [place] | | | [address] | + + + 12 LEAD ECG [...] Laboratory | + + + | | [facility] [address] [place] [address] | | | [place] [address] | + + + C-REACTIVE PROTEIN (11/11/2017 9:06 AM) + +-------+ + | Component | Value | Ref Range | + +-------+ + | C-REACTIVE PROTEIN | <2.9 | <10.0 mg/L | + +-------+ + + + + | Specimen | Performing Laboratory | + + + | Blood | [facility], CORE [address] | | | [place] [address] | + + + + + | [...] | + + + | Blood | [facility] [place] [address] [place], [place] | | | [address] | + + + TRIGLYCERIDES, PLASMA (11/11/2017 9:06 AM) + +-------+ + | Component | Value | Ref Range | + +-------+ + | TRIGLYCERIDES | 117 | <150 mg/dL | + +-------+ + + + + | Specimen | Performing Laboratory | + + + | Blood | [facility], CORE [address] | | | [place] [address] | + + + + + | [...] | + + + | Blood | [facility], CORE [address] [place] [address] | | | [place] [address] | + + + LIVER SET (AST,ALT,BILI [...] | + + + | Blood | [facility], [address]ORE [address] | | | [place] [address] | + + + RENAL FUNCTION SET [...] | >60 | >60 mL/min | | ESTONIAN | | | + + + + | EGFR NON | >60 | >60 mL/min | | -ESTONIAN | | | + + + + [...] | + + + | Blood | [facility], CORE [address] | | | [place] [address] | + + + + + | [...] | + + + | Blood | [facility], CORE [address] | | | [place] [address] | + + + + + | [...] | + + + | Blood | [facility], CORE [address] | | | [place] [address] | + + + + + | [...] | >60 | >60 mL/min | | ESTONIAN | | | + + + + | EGFR NON | >60 | >60 mL/min | | -ESTONIAN | | | + + + + [...] | + + + | Blood | [facility], CORE [address] | | | [place] [address] | + + + + + | [...] | + + + | | [facility] [address] [facility] | | | [place] [address] | + + + MAGNESIUM, PLASMA (11/10/2017 10:19 AM) + +-------+ + | Component | Value | Ref Range | + +-------+ + | MAGNESIUM,PLASMA | 2.0 | 1.6 - 2.6 mg/dL | + +-------+ + + + + | Specimen | Performing Laboratory | + + + | Blood | [facility], CORE [address] | | | [place] [address] | + + + + + | [...] | >60 | >60 mL/min | | ESTONIAN | | | + + + + | EGFR NON | >60 | >60 mL/min | | -ESTONIAN | | | + + + + [...] | + + + | Blood | [facility], CORE [address] | | | [place] [address] | + + + + + [...] | + + + | Blood | [facility], CORE [address] | | | [place] [address] | + + + + + | [...] | >60 | >60 mL/min | | ESTONIAN | | | + + + + | EGFR NON | >60 | >60 mL/min | | -ESTONIAN | | | + + + + [...] | + + + | Blood | [facility], CORE [address] | | | [place] [address] | + + + + + | [...] Laboratory | + + + | | [facility] RAD[facility] VOICE RECOGNITION 2 | + [...] | + + + | Blood | [facility], CORE [address] | | | [place] [address] | + + + + + | [...] | >60 | >60 mL/min | | ESTONIAN | | | + + + + | EGFR NON | >60 | >60 mL/min | | -ESTONIAN | | | + + + + [...] | + + + | Blood | [facility], CORE [address] [place] [address] | | | [place] [address] | + + + + + | [...] Laboratory | + + + | | [facility] [address] [place] [address] | | | [place] [address] | + + + CT HEAD WO CONTRAST (11/07/2017 3:43 PM) + + + | Specimen | Performing Laboratory | + + + | | [facility] RAD[facility] VOICE RECOGNITION 2 | + + + + + | Narrative | + + | EXAM: CT HEAD WITHOUT CONTRAST HISTORY: rellal s/p crani COMPARISON: CT head | | [...] Laboratory | + + + | | [facility] [address] [facility] | | | [place] [address] | + + + RENAL FUNCTION SET [...] | >60 | >60 mL/min | | ESTONIAN | | | + + + + | EGFR NON | >60 | >60 mL/min | | -ESTONIAN | | | + + + + [...] | + + + | Blood | [facility], CORE [address] | | | [place] [address] | + + + + + | [...] | + + + | Blood | [facility], CORE [address] | | | [place] [address] | + + + + + | [...] + + | PRODUCT UNIT # | [id number] | | + + + + | UNIT ABO | O | | + + + + | UNIT RH | POS | | + + + + | STATUS OF UNIT | Returned to Blood Bank | | + + + + | EXPIRATION DATE | [id number] | | + + + + | BLOOD TYPE BARCODE | 5100 | | + + + + | BLOOD PRODUCT CODE | [id number] | | + + + + + + + | Specimen | Performing Laboratory | + + + | | [facility], TRANSFUSION MEDICINE [address] | | | [place] [address] | + + + PRODUCT - RED CELLS LEUKOREDUCED (11/06/2017 8:03 AM) + + + + | Component | Value | Ref Range | + + + + | PRODUCT DESCRIPTION | -1 RED BLOOD CELL ADENINE-SALINE ADDED | | | | LEUKOCYTE | | + + + + | PRODUCT UNIT # | [id number] | | + + + + | UNIT ABO | O | | + + + + | UNIT RH | POS | | + + + + | STATUS OF UNIT | Returned to Blood Bank | | + + + + | EXPIRATION DATE | [id number] | | + + + + | BLOOD TYPE BARCODE | 5100 | | + + + + | BLOOD PRODUCT CODE | [id number] | | + + + + + + + | Specimen | Performing Laboratory | + + + | | [facility] SERVICES, TRANSFUSION MEDICINE [address] [place] [address] | | | [place] [address] | + + + CBC (HEMOGRAM) ONLY [...] | + + + | Blood | [facility], CORE [address] [facility] [address] | | | [place] [address] | + + + + + | [...] | | ------ CBC (HEMOGRAM) | | ONLY[[id number]] Abnormal Final | | result Please view [...] | + + + | Blood | [facility], CORE [address] [place] [address] | | | [place] [address] | + + + + + | [...] | >60 | >60 mL/min | | ESTONIAN | | | + + + + | EGFR NON | >60 | >60 mL/min | | -ESTONIAN | | | + + + + [...] | + + + | Blood | [facility], [facility] [address] [facility] [address] | | | [place] [address] | + + + + + | [...] | Procedure Note | + + | Orina, Magdiel, MD - 11/06/2017 12:27 AM PDT Date of Service: 11/05/2017 Attending | | Surgeon: Magdiel Stock MD Production Statistical Clerk(s): Rg Aiken MD | | Preoperative [...] his head was placed in a horseshoe overhead worker with his C-collar still | | [...] the incision down to the cranium. Once tribe | | skull was reached circumferentially around the prior incision, a #1 [place] was used | | to subperiosteally dissect [...] note for this encounter.Sonal Nunez, | | NMDANIELLE [id number] [place], [place] | | [phone] Orina, MDJB/MODLDD: 11/05/2017 20:38:01DT: 11/06/2017 | | 00:27:33Jo #: [id number] | |HATTIE/DUC | | | | | | /[id number] | + + CT HEAD WO CONTRAST [...] Note | + + | 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, [employer] Res In Interface - 11/05/2017 8:20 PM [...] | nursing staff. Surgeon: Magdiel Stock MD Production Statistical Clerk: Rg Aiken MD | | Pre-op Diagnosis: [...] | MD Attila PGY-4 Neurological Surgery Pager [phone] | + + CAPILLARY BLOOD GLUCOSE (NO [...] [address] | | | [place] [address] | + + + CAPILLARY BLOOD GLUCOSE (NO CHG), POC (11/05/2017 1:33 PM) + +---------+ + | Component | Value | Ref Range | + +---------+ + | BLOOD GLUCOSE, POC | 103 (H) | 70 - 99 mg/dL | + +---------+ + + + + | Specimen | Performing Laboratory | + + + | | [facility] [address] | | | [place] [address] | + + + VASC LAB VENOUS [...] Note | + + | 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, AgentPair Res In Interface - 11/05/2017 11:31 AM [...] | + + + | Blood | [facility], [address] | | | [place] [address] | + + + + + | [...] | + + + | Blood | [facility], [address] | | | [facility] [place] [address] | + + + + + | [...] | >60 | >60 mL/min | | ESTONIAN | | | + + + + | EGFR NON | >60 | >60 mL/min | | -ESTONIAN | | | + + + + [...] | + + + | Blood | [facility], [address] | | | [place] [address] | + + + + + | [...] | + + + | Blood | [facility] LABORATORY [facility], CORE [address] | | | [place] [address] | + + + + + | [...] | | ------ CBC (HEMOGRAM) | | ONLY[[id number]] Abnormal Final | | result Please view [...] + + | PRODUCT UNIT # | [id number] | | + + + + | UNIT ABO | O | | + + + + | UNIT RH | POS | | + + + + | STATUS OF UNIT | Returned to Blood Bank | | + + + + | EXPIRATION DATE | [id number] | | + + + + | BLOOD TYPE BARCODE | 5100 | | + + + + | BLOOD PRODUCT CODE | [id number] | | + + + + + + + | Specimen | Performing Laboratory | + + + | | [facility] SERVICES, TRANSFUSION MEDICINE [address] [facility] | | | [address] [place] [address] | + + + PRODUCT - RED CELLS LEUKOREDUCED (11/04/2017 8:19 PM) + + + + | Component | Value | Ref Range | + + + + | PRODUCT DESCRIPTION | -1 RED BLOOD CELL ADENINE-SALINE ADDED | | | | LEUKOCYTE | | + + + + | PRODUCT UNIT # | [id number] | | + + + + | UNIT ABO | O | | + + + + | UNIT RH | POS | | + + + + | STATUS OF UNIT | Returned to Blood Bank | | + + + + | EXPIRATION DATE | [id number] | | + + + + | BLOOD TYPE BARCODE | 5100 | | + + + + | BLOOD PRODUCT CODE | [id number] | | + + + + + + + | Specimen | Performing Laboratory | + + + | | [facility] SERVICES, TRANSFUSION MEDICINE [address] | | | [place] [address] | + + + CBC (HEMOGRAM) ONLY [...] | + + + | Blood | [facility], CORE [address] | | | [place] [address] | + + + + + | [...] | + + + | Blood | [facility] SERVICES, TRANSFUSION MEDICINE [address] [facility] | | | [place] [address] | + + + ABO & RH [...] | + + + | Blood | [facility] LAB[facility] SERVICES, TRANSFUSION MEDICINE [address] | | | [place] [address] | + + + TYPE AND SCREEN [...] | ------ ABO & RH | | TYPE[[id number]] F | | inal result ANTIBODY | | SCREEN[[id number]] Fin | | al result Please view [...] | + + + | Blood | [facility], CORE [address] [place] [address] | | | [place] [address] | + + + + + | [...] | | ------ CBC (HEMOGRAM) | | ONLY[[id number]] Abnormal Final | | result Please view [...] Laboratory | + + + | | [facility] [address] [place] [address] | | | [place] [address] | + + + CALCIUM, IONIZED, WHOLE [...] | + + + | Blood | [facility], CORE [address] [place] [address] | | | [place] [address] | + + + C-REACTIVE PROTEIN (11/04/2017 5:59 AM) + +-------+ + | Component | Value | Ref Range | + +-------+ + | C-REACTIVE PROTEIN | <2.9 | <10.0 mg/L | + +-------+ + + + + | Specimen | Performing Laboratory | + + + | Blood | [facility], CORE [address] | | | [place] [address] | + + + + + | [...] | + + + | Blood | [facility] [address] [place], [place] | | | [address] | + + + TRIGLYCERIDES, PLASMA (11/04/2017 5:59 AM) + +-------+ + | Component | Value | Ref Range | + +-------+ + | TRIGLYCERIDES | 111 | <150 mg/dL | + +-------+ + + + + | Specimen | Performing Laboratory | + + + | Blood | [facility], CORE [address] | | | [place] [address] | + + + + + | [...] | + + + | Blood | [facility], CORE [address] | | | [place] [address] | + + + RENAL FUNCTION SET [...] | >60 | >60 mL/min | | ESTONIAN | | | + + + + | EGFR NON | >60 | >60 mL/min | | -ESTONIAN | | | + + + + [...] | + + + | Blood | [facility], [facility] [address] | | | [place] [address] | + + + + + | [...] | + + + | Blood | [facility], CORE [address] [place] [address] | | | [place] [address] | + + + + + | [...] | + + + | Blood | [facility], CORE [address] | | | [place] [address] | + + + + + | [...] | >60 | >60 mL/min | | ESTONIAN | | | + + + + | EGFR NON | >60 | >60 mL/min | | -ESTONIAN | | | + + + + [...] | + + + | Blood | [facility], CORE [address] | | | [place] [address] | + + + + + | [...] | + + + | Blood | [facility], CORE [address] [facility] [address] | | | [place] [address] | + + + + + | [...] | >60 | >60 mL/min | | ESTONIAN | | | + + + + | EGFR NON | >60 | >60 mL/min | | -ESTONIAN | | | + + + + [...] | + + + | Blood | [facility], [address]ORE [address] | | | [place] [address] | + + + + + | [...] Laboratory | + + + | | [facility] [address] [place] [address] | | | [place] [address] | + + + MAGNESIUM, PLASMA (11/01/2017 4:40 AM) + +-------+ + | Component | Value | Ref Range | + +-------+ + | MAGNESIUM,PLASMA | 2.0 | 1.6 - 2.6 mg/dL | + +-------+ + + + + | Specimen | Performing Laboratory | + + + | Blood | [facility], CORE [address] | | | [place] [address] | + + + + + | [...] | >60 | >60 mL/min | | ESTONIAN | | | + + + + | EGFR NON | >60 | >60 mL/min | | -ESTONIAN | | | + + + + [...] | + + + | Blood | [facility], CORE [address] [facility] [address] | | | [place] [address] | + + + + + | [...] Laboratory | + + + | | [facility] RADIOLOGY VOICE RECOGNITION 2 | + [...] Laboratory | + + + | | [facility] [address] [place] [address] | | | [place] [address] | + + + RENAL FUNCTION SET [...] | >60 | >60 mL/min | | ESTONIAN | | | + + + + | EGFR NON | >60 | >60 mL/min | | -ESTONIAN | | | + + + + [...] | + + + | Blood | [facility], CORE [address] | | | [place] [address] | + + + + + | [...] | + + + | Blood | [facility], CORE [address] | | | [place] [address] | + + + + + | [...] | [facility] POINT OF CARE TESTS [address] | | | [place] [address] | + + + MAGNESIUM, PLASMA (10/30/2017 5:29 AM) + +-------+ + | Component | Value | Ref Range | + +-------+ + | MAGNESIUM,PLASMA | 1.8 | 1.6 - 2.6 mg/dL | + +-------+ + + + + | Specimen | Performing Laboratory | + + + | Blood | [facility], CORE [address] [place] [address] | | | [place] [address] | + + + + + | [...] | >60 | >60 mL/min | | ESTONIAN | | | + + + + | EGFR NON | >60 | >60 mL/min | | -ESTONIAN | | | + + + + [...] | + + + | Blood | [facility], CORE [address] | | | [place] [address] | + + + + + | [...] | | muscle-wasting diseses | + + [facility] VENOUS DUPLEX LOWER EXTREMITY BILAT COMP (10/29/2017 8:56 AM) + + + | Specimen | Performing Laboratory | + + + | | [facility] RADIOLOGY [facility] US | + + + + + [...] Note | + + | 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, AgentPair Res In Interface - 10/29/2017 12:13 PM [...] [address] | | | [place] [address] | + + + MAGNESIUM, PLASMA (10/29/2017 6:19 AM) + +-------+ + | Component | Value | Ref Range | + +-------+ + | MAGNESIUM,PLASMA | 1.9 | 1.6 - 2.6 mg/dL | + +-------+ + + + + | Specimen | Performing Laboratory | + + + | Blood | [facility], CORE [address] [facility] [address] | | | [place] [address] | + + + + + | [...] | >60 | >60 mL/min | | ESTONIAN | | | + + + + | EGFR NON | >60 | >60 mL/min | | -ESTONIAN | | | + + + + [...] | + + + | Blood | [facility], CORE [address] | | | [place] [address] | + + + + + | [...] + + + | | [facility], POINT OF CARE TESTS [address] | | | [place] [address] | + + + 12 LEAD ECG [...] Laboratory | + + + | | [facility] [address] [place] [address] | | | [place] [address] | + + + CAPILLARY BLOOD GLUCOSE (NO CHG), POC (10/28/2017 12:00 PM) + +---------+ + | Component | Value | Ref Range | + +---------+ + | BLOOD GLUCOSE, POC | 141 (H) | 70 - 99 mg/dL | + +---------+ + + + + | Specimen | Performing Laboratory | + + + | | [facility] [place], POINT OF CARE TESTS [address] | | | [place] [address] | + + + CAPILLARY BLOOD GLUCOSE (NO CHG), POC (10/28/2017 6:43 AM) + +---------+ + | Component | Value | Ref Range | + +---------+ + | BLOOD GLUCOSE, POC | 127 (H) | 70 - 99 mg/dL | + +---------+ + + + + | Specimen | Performing Laboratory | + + + | | [facility] [place], POINT OF CARE TESTS [address] | | | [place] [address] | + + + C-REACTIVE PROTEIN (10/28/2017 5:29 AM) + + + + | Component | Value | Ref Range | + + + + | C-REACTIVE PROTEIN | 17.9 (H) | <10.0 mg/L | + + + + + + + | Specimen | Performing Laboratory | + + + | Blood | [facility], CORE [address] [facility] | | | [place] [address] | + + + + + | [...] | + + + | Blood | [facility] [address] [place], [place] | | | [address] | + + + TRIGLYCERIDES, PLASMA (10/28/2017 5:29 AM) + +-------+ + | Component | Value | Ref Range | + +-------+ + | TRIGLYCERIDES | 117 | <150 mg/dL | + +-------+ + + + + | Specimen | Performing Laboratory | + + + | Blood | [facility], CORE [address] | | | [place] [address] | + + + + + | [...] | + + + | Blood | [facility], CORE [address] [place] [address] | | | [place] [address] | + + + LIVER SET (AST,ALT,BILI [...] | + + + | Blood | [facility], CORE [address] [place] [address] | | | [place] [address] | + + + RENAL FUNCTION SET [...] | >60 | >60 mL/min | | ESTONIAN | | | + + + + | EGFR NON | >60 | >60 mL/min | | -ESTONIAN | | | + + + + [...] | + + + | Blood | [facility], CORE [address] | | | [place] [address] | + + + + + | [...] | + + + | Blood | [facility], CORE [address] | | | [place] [address] | + + + + + | [...] [address] | | | [place] [address] | + + + CAPILLARY BLOOD GLUCOSE (NO CHG), POC (10/27/2017 6:48 PM) + +---------+ + | Component | Value | Ref Range | + +---------+ + | BLOOD GLUCOSE, POC | 128 (H) | 70 - 99 mg/dL | + +---------+ + + + + | Specimen | Performing Laboratory | + + + | | [facility], POINT OF CARE TESTS 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 [...] Brachial | | vein. Catheter lot number: [id number] with a length of 55 cm was [...] + + + | | [facility] [place], POINT OF CARE TESTS [address] | | | [place] [address] | + + + 12 LEAD ECG [...] + | | [facility] [address] [place] [address] | | | [place] [address] | + + + CAPILLARY BLOOD GLUCOSE [...] [address] | | | [place] [address] | + + + MAGNESIUM, PLASMA (10/27/2017 4:30 AM) + +-------+ + | Component | Value | Ref Range | + +-------+ + | MAGNESIUM,PLASMA | 1.9 | 1.6 - 2.6 mg/dL | + +-------+ + + + + | Specimen | Performing Laboratory | + + + | Blood | [facility], CORE [address] | | | [place] [address] | + + + + + | [...] | >60 | >60 mL/min | | ESTONIAN | | | + + + + | EGFR NON | >60 | >60 mL/min | | -ESTONIAN | | | + + + + [...] | + + + | Blood | [facility], CORE [address] [place] | | | [place] [address] | + + + + + | [...] Laboratory | + + + | | [facility], PO[facility] CARE TESTS [address] | | | [place] [address] | + + + CAPILLARY BLOOD GLUCOSE (NO CHG), POC (10/26/2017 11:58 AM) + +---------+ + | Component | Value | Ref Range | + +---------+ + | BLOOD GLUCOSE, POC | 110 (H) | 70 - 99 mg/dL | + +---------+ + + + + | Specimen | Performing Laboratory | + + + | | [facility] [place], POINT OF CARE TESTS [address] | | | [place] [address] | + + + CAPILLARY BLOOD GLUCOSE (NO CHG), POC (10/26/2017 5:57 AM) + +---------+ + | Component | Value | Ref Range | + +---------+ + | BLOOD GLUCOSE, POC | 102 (H) | 70 - 99 mg/dL | + +---------+ + + + + | Specimen | Performing Laboratory | + + + | | [facility], POINT OF CARE TESTS [address] | | | [place] [address] | + + + MAGNESIUM, PLASMA (10/26/2017 5:13 AM) + +-------+ + | Component | Value | Ref Range | + +-------+ + | MAGNESIUM,PLASMA | 1.6 | 1.6 - 2.6 mg/dL | + +-------+ + + + + | Specimen | Performing Laboratory | + + + | Blood | [facility], CORE [address] [facility] | | | [place] [address] | + + + + + | [...] | >60 | >60 mL/min | | ESTONIAN | | | + + + + | EGFR NON | >60 | >60 mL/min | | -ESTONIAN | | | + + + + [...] | + + + | Blood | [facility], [facility] [address] | | | [place] [address] | + + + + + | [...] Laboratory | + + + | | [facility], POINT OF CARE TESTS [address] | | | [place] [address] | + + + BASIC METABOLIC SET [...] | >60 | >60 mL/min | | ESTONIAN | | | + + + + | EGFR NON | >60 | >60 mL/min | | -ESTONIAN | | | + + + + [...] | + + + | Blood | [facility], CORE [address] [place] [address] | | | [place] [address] | + + + + + | [...] [address] | | | [place] [address] | + + + 12 LEAD ECG [...] | + + + | | [facility] [address] [place] [address] | | | [place] [address] | + + + CAPILLARY BLOOD GLUCOSE [...] [address] | | | [place] [address] | + + + 12 LEAD ECG [...] Laboratory | + + + | | [facility] [address] [facility] | | | [place] [address] | + + + CALCIUM, IONIZED, WHOLE [...] | + + + | Blood | [facility], CORE [address] | | | [place] [address] | + + + PREALBUMIN (10/24/2017 4:50 PM) + + + + | Component | Value | Ref Range | + + + + | PREALBUMIN | 14.7 (L) | 17.0 - 42.0 mg/dL | + + + + + + + | Specimen | Performing Laboratory | + + + | Blood | [facility] [place] [address] [place], [place] | | | [address] | + + + C-REACTIVE PROTEIN (10/24/2017 4:45 PM) + + + + | Component | Value | Ref Range | + + + + | C-REACTIVE PROTEIN | 16.0 (H) | <10.0 mg/L | + + + + + + + | Specimen | Performing Laboratory | + + + | Blood | [facility], CORE [address] | | | [place] [address] | + + + + + | [...] | + + + | Blood | [facility], CORE [address] | | | [place] [address] | + + + TRIGLYCERIDES, PLASMA (10/24/2017 4:45 PM) + +-------+ + | Component | Value | Ref Range | + +-------+ + | TRIGLYCERIDES | 93 | <150 mg/dL | + +-------+ + + + + | Specimen | Performing Laboratory | + + + | Blood | [facility], CORE [address] | | | [place] [address] | + + + + + | [...] | + + + | Blood | [facility], CORE [address] | | | [place] [address] | + + + ALKALINE PHOSPHATASE, PLASMA (10/24/2017 4:45 PM) + +---------+ + | Component | Value | Ref Range | + +---------+ + | ALK PHOS | 200 (H) | 56 - 119 U/L | + +---------+ + + + + | Specimen | Performing Laboratory | + + + | Blood | [facility], CORE [address] | | | [place] [address] | + + + BILIRUBIN DIRECT (10/24/2017 [...] | + + + | Blood | [facility], CORE [address] | | | [place] [address] | + + + BILIRUBIN TOTAL (10/24/2017 4:45 PM) + +---------+ + | Component | Value | Ref Range | + +---------+ + | BILIRUBIN TOTAL | 0.3 | 0.3 - 1.2 mg/dL | + +---------+ + | BRET SHIPLEY | No Hemo | | + +---------+ + + + + | Specimen | Performing Laboratory | + + + | Blood | [facility], CORE [address] [place] [address] | | | [place] [address] | + + + PHOSPHORUS, PLASMA (10/24/2017 4:45 PM) + +-------+ + | Component | Value | Ref Range | + +-------+ + | PHOSPHORUS, PLASMA | 3.2 | 2.4 - 4.7 mg/dL | | (LAB) | | | + +-------+ + + + + | Specimen | Performing Laboratory | + + + | Blood | [facility], CORE [address] [place] [address] | | | [place] [address] | + + + ALBUMIN, PLASMA (10/24/2017 4:45 PM) + +---------+ + | Component | Value | Ref Range | + +---------+ + | ALBUMIN, PLASMA | 2.6 (L) | 3.5 - 4.7 g/dL | | (LAB) | | | + +---------+ + + + + | Specimen | Performing Laboratory | + + + | Blood | [facility], CORE [address] | | | [place], [place] [address] | + + + MAGNESIUM, PLASMA (10/24/2017 4:45 PM) + +-------+ + | Component | Value | Ref Range | + +-------+ + | MAGNESIUM,PLASMA | 1.7 | 1.6 - 2.6 mg/dL | + +-------+ + + + + | Specimen | Performing Laboratory | + + + | Blood | [facility], CORE [address] | | | [place] [address] | + + + + + | [...] | >60 | >60 mL/min | | ESTONIAN | | | + + + + | EGFR NON | >60 | >60 mL/min | | -ESTONIAN | | | + + + + [...] | + + + | Blood | [facility], CORE [address] | | | [place] [address] | + + + + + | [...] Procedure Note | | Indications:TPN Procedure location: Unit:[facility] Room: 4 Providers: Attending name: | | Attending physically present: No PICC Nurse name: Nery Sosa Pre-Procedure Consent: | | written consent obtained Consent given by: Next of kin Patient identity confirmed | | per protocol: Yes Team Pause: Immediatly prior to the procedure a pause per protocol | | was called. A pause verifies correct patient, procedure, equipment, computer support analyst | | and site/side marked as required. [...] Arm area Basilic vein. Catheter lot number: [id number] with a length of 55 cm | [...] Laboratory | + + + | | [facility] RAD[facility] VOICE RECOGNITION 2 | + + + + + | Narrative | + + | EXAM: FL CHEST 1 VIEW HISTORY: PICC placed-pt ready. [...] Interface - 10/24/2017 3:43 PM PDT EXAM: FL CHEST 1 | | VIEW HISTORY: PICC [...] [address] | | | [place] [address] | + + + PROCEDURE DESTINY (10/24/2017 12:06 PM) + + | Narrative [...] Surgical Critical Care, PGY7 | | Pager: [phone] | + + CAPILLARY BLOOD GLUCOSE (NO CHG), POC (10/24/2017 10:31 AM) + +-------+ + | Component | Value | Ref Range | + +-------+ + | BLOOD GLUCOSE, POC | 85 | 70 - 99 mg/dL | + +-------+ + + + + | Specimen | Performing Laboratory | + + + | | [facility] [place], POINT OF CARE TESTS [address] | | | [place] [address] | + + + CAPILLARY BLOOD GLUCOSE (NO CHG), POC (10/24/2017 8:50 AM) + +-------+ + | Component | Value | Ref Range | + +-------+ + | BLOOD GLUCOSE, POC | 98 | 70 - 99 mg/dL | + +-------+ + + + + | Specimen | Performing Laboratory | + + + | | [facility], POINT OF CARE TESTS [address] | | | [place] [address] | + + + RENAL FUNCTION SET [...] | >60 | >60 mL/min | | ESTONIAN | | | + + + + | EGFR NON | >60 | >60 mL/min | | -ESTONIAN | | | + + + + [...] | + + + | Blood | [facility], CORE [address] [facility] [address] | | | [place] [address] | + + + + + | [...] | + + + | Blood | [facility], CORE [address] | | | [place] [address] | + + + + + | [...] [address] | | | [place] [address] | + + + CBC AND AUTO [...] | + + + | Blood | [facility], CORE [address] | | | [place] [address] | + + + + + | [...] | >60 | >60 mL/min | | ESTONIAN | | | + + + + | EGFR NON | >60 | >60 mL/min | | -ESTONIAN | | | + + + + [...] | + + + | Blood | [facility], [facility] [place] [address] [facility] | | | [place] [address] | + + + + + | [...] | ------ CBC AND AUTO | | DIFF[[id number]] Abnormal Final | | result Please view [...] + | | [facility] [address] [place] [address] | | | [facility] [address] | + + + IR GASTROSTOMY TUBE EXCHANGE (10/22/2017 2:42 PM) + + + | Specimen | Performing Laboratory | + + + | | [facility] VOICE RECOGNITION | + + + + + | Narrative | + + | Procedure: Gastrostomy tube exchange Primary attending air carrier inspector: Shade | | Bryn Goodwin Preoperative diagnosis: Malfunctioning Gastrostomy tube | | Postoperative diagnosis: Same Operations: Operation 1. Removal of existing | | Gastrostomy tube over a guide wire Operation 2. Placement of 24 Vincentian GABRIEL | | gastrostomy over guide wire [...] | | glide wire the new 24 Vincentian gastrostomy tube was inserted. The position of [...] Procedure: | | Gastrostomy tube exchangePrimary attending air carrier inspector: Shade Goodwin | | BrynPreoperative diagnosis: Malfunctioning Gastrostomy tubePostoperative diagnosis: | | SameOperations:Operation 1. Removal of existing Gastrostomy tube over a guide | | wireOperation 2. Placement of 24 Vincentian GABRIEL gastrostomy over guide wireNo sedation was [...] glide wire the | | new 24 Vincentian gastrostomy tube was inserted. The position of [...] stiff g lide wire the new 24 Vincentian | |gastrostomy tube was inserted. The position [...] Note | + + | 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, [email or web address] Mobile In Interface - 10/22/2017 10:34 AM PDT [...] Laboratory | + + + | | [facility] [address] [place] [address] | | | [place] [address] | + + + CT ABDOMEN AND PELVIS W IV CONTRAST (10/22/2017 3:56 AM) + + + | Specimen | Performing Laboratory | + + + | | [facility] VOICE RECOGNITION 2 | + [...] Note | + + | 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, Solvoyoant Res In Interface - 10/22/2017 8:06 AM [...] | + + + | Blood | [facility], [facility] [address] [facility] | | | [place] [address] | + + + + + | [...] | >60 | >60 mL/min | | ESTONIAN | | | + + + + | EGFR NON | >60 | >60 mL/min | | -ESTONIAN | | | + + + + [...] | + + + | Blood | [facility], [address] [place] [address] | | | [place] [address] | + + + + + | [...] | | ------ CBC (HEMOGRAM) | | ONLY[[id number]] Abnormal Final | | result Please view [...] Laboratory | + + + | | [facility] [address] [place] [address] | | | [place] [address] | + + + RENAL FUNCTION SET [...] | >60 | >60 mL/min | | ESTONIAN | | | + + + + | EGFR NON | >60 | >60 mL/min | | -ESTONIAN | | | + + + + [...] | + + + | Blood | [facility], CORE [address] | | | [place] [address] | + + + + + | [...] | + + + | Blood | [facility], CORE [address] | | | [place] [address] | + + + + + | [...] Laboratory | + + + | | [facility] [address] [place] [address] | | | [place] [address] | + + + MAGNESIUM, PLASMA (10/18/2017 9:01 AM) + +-------+ + | Component | Value | Ref Range | + +-------+ + | MAGNESIUM,PLASMA | 1.9 | 1.6 - 2.6 mg/dL | + +-------+ + + + + | Specimen | Performing Laboratory | + + + | Blood | [facility], CORE [address] [place] [address] | | | [place], [place] [address] | + + + + + | [...] | >60 | >60 mL/min | | ESTONIAN | | | + + + + | EGFR NON | >60 | >60 mL/min | | -ESTONIAN | | | + + + + [...] | + + + | Blood | [facility], CORE [address] | | | [place] [address] | + + + + + | [...] Laboratory | + + + | | [facility] [address] [place] [address] | | | [place] [address] | + + + RENAL FUNCTION SET [...] | >60 | >60 mL/min | | ESTONIAN | | | + + + + | EGFR NON | >60 | >60 mL/min | | -ESTONIAN | | | + + + + [...] | + + + | Blood | [facility], CORE [address] [place] [address] | | | [place] [address] | + + + + + | [...] | + + + | Blood | [facility], CORE [address] | | | [place] [address] | + + + + + | [...] Laboratory | + + + | | [address] | | | [place] [address] | + + + BASIC METABOLIC SET [...] | >60 | >60 mL/min | | ESTONIAN | | | + + + + | EGFR NON | >60 | >60 mL/min | | -ESTONIAN | | | + + + + [...] | + + + | Blood | [facility], [address] [address] | | | [place] [address] | + + + + + | [...] | + + + | Blood | [facility], CORE [address] | | | [place] [address] | + + + + + | [...] | | ------ CBC (HEMOGRAM) | | ONLY[[id number]] Abnormal Final | | result Please view [...] Note | + + | 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, [employer] In Interface - 10/15/2017 3:58 PM PDT [...] + | | [facility] [address] [place] [address] | | | [place] [address] | + + + CAPILLARY BLOOD GLUCOSE (NO CHG), POC (10/15/2017 6:01 AM) + +---------+ + | Component | Value | Ref Range | + +---------+ + | BLOOD GLUCOSE, POC | 134 (H) | 70 - 99 mg/dL | + +---------+ + + + + | Specimen | Performing Laboratory | + + + | | [facility]ARE TESTS [address] | | | [place] [address] | + + + CBC (HEMOGRAM) ONLY [...] | + + + | Blood | [facility], CORE [address] | | | [place] [facility] | + + + + + | [...] | | ------ CBC (HEMOGRAM) | | ONLY[[id number]] Abnormal Final | | result Please view [...] Laboratory | + + + | | [facility] [place], POINT OF [facility] TESTS [address] | | | [place] [address] | + + + 12 LEAD ECG [...] Laboratory | + + + | | [facility] [address] [place] [address] | | | [place] [address] | + + + CBC (HEMOGRAM) ONLY [...] | + + + | Blood | [facility], CORE [address] | | | [place] [address] | + + + + + | [...] | >60 | >60 mL/min | | ESTONIAN | | | + + + + | EGFR NON | >60 | >60 mL/min | | -ESTONIAN | | | + + + + [...] | + + + | Blood | [facility], CORE [address] | | | [place] [address] | + + + + + | [...] | + + + | Blood | [facility], CORE [address] | | | [place] [address] | + + + + + | [...] | | ------ CBC (HEMOGRAM) | | ONLY[[id number]] Abnormal Final | | result Please view [...] + | | [facility] POINT OF [facility] TESTS [address] | | | [place] [address] | + + + CAPILLARY BLOOD GLUCOSE [...] [address] | | | [place] [address] | + + + CBC (HEMOGRAM) ONLY [...] | + + + | Blood | [facility], CORE [address] | | | [place] [address] | + + + + + | [...] | >60 | >60 mL/min | | ESTONIAN | | | + + + + | EGFR NON | >60 | >60 mL/min | | -ESTONIAN | | | + + + + [...] | + + + | Blood | [facility], CORE [address] | | | [place] [address] | + + + + + | [...] | | ------ CBC (HEMOGRAM) | | ONLY[[id number]] Abnormal Final | | result Please view results for these tests on the | | individual orders. | + + OPERATION RECORD (10/12/2017 8:50 PM) + + | Procedure Note | + + | Pilar Cotto MD - 10/12/2017 8:50 PM PDT Date of Service: 10/12/2017 | | Attending Surgeon: Chaz Munoz MD Production Statistical Clerk(s): Randell Dixon M.D., | | fellow. [...] saline. We then | | placed a 19-Vincentian drain deep into the abscess cavity, tracking [...] 10/12/2017 19:50:06DT: 10/12/2017 20:50:54Job #: | | [id number] | + + X-RAY PORTABLE CHEST 1 VIEW (10/12/2017 7:50 PM) + + + | Specimen | Performing Laboratory | + + + | | [facility] VOICE RECOGNITION 2 | + + + + + | Narrative | + + | EXAM: FL CHEST 1 VIEW HISTORY: Evaluate endotracheal tube [...] now presented. Final signature: | | Kathy iDehl MD 10/13/2017 9:03 AM Preliminary: Gurpreet Dunne MD | | Dictation initiated: Gurpreet Dunne MD 10/13/2017 8:08 AM | + + + + | Procedure Note | + + | 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, [employer] In Interface - 10/13/2017 9:04 AM PDT EXAM: FL CHEST 1 | | VIEW HISTORY: Evaluate [...] | Narrative | + + | Pilar Cotot MD 10/12/2017 7:35 PM BRIEF OPERATIVE NOTE [...] | [facility], POINT OF [facility] TESTS [address] | | | [place] [address] | + + + CT ABDOMEN AND [...] Note | + + | 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, [employer] In Interface - 10/12/2017 5:05 PM [...] | + + + | Blood | [facility], CORE [address] | | | [place] [address] | + + + + + | [...] | >60 | >60 mL/min | | ESTONIAN | | | + + + + | EGFR NON | >60 | >60 mL/min | | -ESTONIAN | | | + + + + [...] | + + + | Blood | [facility], CORE [address] | | | [place] [address] | + + + + + | [...] | | ------ CBC (HEMOGRAM) | | ONLY[[id number]] Abnormal Final | | result Please view [...] | + + + | Blood | [facility], [facility] [address] [facility] [address] | | | [place] [address] | + + + + + | [...] Laboratory | + + + | | [facility] [address] [place] [address] | | | [place] [address] | + + + 12 LEAD ECG [...] + + + | ECG IMPRESSION | FRANKDdemetrio RBBB | | + + + + | ECG IMPRESSION | Borderline prolonged QT interval- ABNORMAL | | | | ECG - | | + + + + | ECG IMPRESSION | Electronically signed by: PAULO CAVAZOS | | | | 10-11-2017 16:37:15 | | + + + + + + + | Specimen | Performing Laboratory | + + + | | [facility] [address] [place] [address] | | | [place] [address] | + + + CBC (HEMOGRAM) ONLY [...] | + + + | Blood | [facility], [facility] [address] | | | [place] [address] | + + + + + | [...] | + + + | Blood | [facility], CORE [address] [place] [address] | | | [place] [address] | + + + + + | [...] | >60 | >60 mL/min | | ESTONIAN | | | + + + + | EGFR NON | >60 | >60 mL/min | | -ESTONIAN | | | + + + + [...] | + + + | Blood | [facility], CORE [address] [place] [address] | | | [place] [address] | + + + + + | [...] | | ------ CBC (HEMOGRAM) | | ONLY[[id number]] Abnormal Final | | result Please view results for these tests on the | | individual orders. | + + PROCEDURE NOTE (10/10/2017 10:00 PM) + + | Narrative | + + | Darius Link MD 10/12/2017 11:11 AM OPERATIVE REPORT DATE OF | | OPERATION: 10/10/2017 ATTENDING SURGEON: 1. Dr. Munoz STAFF TECHNOLOGIST: 1. 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 | | [place] [address] Chief Resident Neurosurgery | + + CBC [...] | + + + | Blood | [facility], CORE [address] | | | [place] [address] | + + + + + | [...] | | ------ CBC (HEMOGRAM) | | ONLY[[id number]] Abnormal Final | | result Please view [...] | >60 | >60 mL/min | | ESTONIAN | | | + + + + | EGFR NON | >60 | >60 mL/min | | -ESTONIAN | | | + + + + [...] | + + + | Blood | [facility], CORE [address] | | | [place] [address] | + + + + + | [...] | + + + | Blood | [facility], CORE [address] | | | [place] [address] | + + + + + | Narrative | + + | Reference range change effective 12/11/16. | + + OPERATION RECORD (10/10/2017 12:40 PM) + + | Procedure Note | + + | Magdiel Stock MD - 10/10/2017 12:40 PM PDT Date of Service: 10/10/2017 Attending | | Surgeon: Magdiel Stock MD Production Statistical Clerk(s): Cecilia Hernandez, | | . Preoperative Diagnoses: [...] This is a 67-year-old male. Please see [facility] for full details. He | [...] the note for this encounter.Sonal Nunez MDOHSU [id number] | | [place] [id number] Orina, MDFAH/MODLDD: | | 10/10/2017 11:52:15DT: 10/10/2017 12:40:41Job #: [id number] | | | | | |I was present for the critical portions of the procedure as described in the note for this encounter. | | | |Magdiel Stock MD | | | |Magdiel Stock MD | |[address] | |[address] [facility] | |[facility] | |[place] [address] | |[phone] | | | | | |Magdiel Stock MD | |FAH/MODL | | | | | | /[id number] | + + X-RAY ABDOMEN 1 VIEW [...] + + | Tissue - Head | [facility] [address] [address] [place], [place] | | | [address] | + + + + + | [...] + + | Swab - Head | [facility] [place] [address] [address] [place], [place] | | | [address] | + + + + + | [...] + + | Swab - Head | [facility] [address] [address] [place], [place] | | | [address] | + + + + + | [...] + + | Swab - Head | [facility] [address] [place], [place] | | | [address] | + + + + + | Narrative | + + | Culture Report: No acid fast bacteria isolated at 6 weeks. AFB Smear: AFB not | | detected | + + CULTURE, FUNGAL EXCEPT BLOOD, SKIN, HAIR, NAIL (10/10/2017 9:00 AM) + + + | Specimen | Performing Laboratory | + + + | Swab - Head | [facility] [address] [place], [place] | | | [address] | + + + + + | [...] + + | Swab - Head | [facility] [address] [place], [place] | | | [address] | + + + + + | [...] + + | Swab - Head | [facility] [place] [address] [address] [place], [place] | | | [address] | + + + + + | [...] + + | Tissue - Head | [facility] [place] [address] [place], [place] | | | [address] | + + + + + | [...] + + | Tissue - Head | [facility] [place] [address] [address] [place], [place] | | | [address] | + + + + + | [...] + + | Swab - Head | [facility] [place] [address] [place], [place] | | | [address] | + + + + + | [...] + + | Swab - Head | [facility] [address] [place], [place] | | | [address] | + + + + + | [...] + + | Swab - Head | [facility] [address] [address] [place], [place] | | | [address] | + + + + + | Narrative | + + | Culture Report: No acid fast bacteria isolated at 6 weeks. AFB Smear: AFB not | | detected | + + CULTURE, FUNGAL EXCEPT BLOOD, SKIN, HAIR, NAIL (10/10/2017 8:38 AM) + + + | Specimen | Performing Laboratory | + + + | Swab - Head | [facility] [address] [address] [place], [place] | | | [address] | + + + + + | [...] + + | Swab - Head | [facility] [place] [address] [place], [place] | | | [address] | + + + + + | [...] + + | Swab - Head | [facility] [place] [address] [place] [address] | | | [address] | + + + + + | Narrative | + + | Culture Report: No acid fast bacteria isolated at 6 weeks. AFB Smear: AFB not | | detected | + + CULTURE, FUNGAL EXCEPT BLOOD, SKIN, HAIR, NAIL (10/10/2017 8:31 AM) + + + | Specimen | Performing Laboratory | + + + | Swab - Head | [facility] [place] [address] [address] [place], [place] | | | [address] | + + + + + | [...] + + | Swab - Head | [facility] [address] [place], [place] | | | [address] | + + + + + | [...] + + | Swab - Head | [facility] [address] [place], [place] | | | [address] | + + + + + | Narrative | + + | Culture Report: No acid fast bacteria isolated at 6 weeks. AFB Smear: AFB not | | detected | + + CT HEAD WO CONTRAST (10/10/2017 3:01 AM) + + + | Specimen | Performing Laboratory | + + + | | [facility] VOICE RECOGNITION 2 | + [...] | [facility], CORE [address] [facility] | | | [place] [address] | + + + CBC (HEMOGRAM) ONLY [...] | + + + | Blood | [facility], CORE [address] | | | [place] [address] | + + + + + | [...] | | ------ CBC (HEMOGRAM) | | ONLY[[id number]] Abnormal Final | | result Please view [...] | + + + | Blood | [facility], [facility] [address] [facility] [address] | | | [place] [address] | + + + + + | [...] | >60 | >60 mL/min | | ESTONIAN | | | + + + + | EGFR NON | >60 | >60 mL/min | | -ESTONIAN | | | + + + + [...] | + + + | Blood | [facility], CORE [address] | | | [place] [address] | + + + + + | [...] | + + + | | [facility] [address] [place] [address] | | | [place] [address] | + + + PRODUCT - RED CELLS LEUKOREDUCED (10/09/2017 5:12 PM) + + + + | Component | Value | Ref Range | + + + + | PRODUCT DESCRIPTION | -1 RED BLOOD CELL ADENINE-SALINE ADDED | | | | LEUKOCYTE | | + + + + | PRODUCT UNIT # | [id number] | | + + + + | UNIT ABO | O | | + + + + | UNIT RH | POS | | + + + + | STATUS OF UNIT | Returned to Blood Bank | | + + + + | EXPIRATION DATE | [id number] | | + + + + | BLOOD TYPE BARCODE | 5100 | | + + + + | BLOOD PRODUCT CODE | [id number] | | + + + + + + + | Specimen | Performing Laboratory | + + + | | [facility], TRANSFUSION MEDICINE [address] [facility] | | | [place] [address] | + + + PRODUCT - RED CELLS LEUKOREDUCED (10/09/2017 5:12 PM) + + + + | Component | Value | Ref Range | + + + + | PRODUCT DESCRIPTION | -1 RED BLOOD CELL ADENINE-SALINE ADDED | | | | LEUKOCYTE | | + + + + | PRODUCT UNIT # | [id number] | | + + + + | UNIT ABO | O | | + + + + | UNIT RH | POS | | + + + + | STATUS OF UNIT | Returned to Blood Bank | | + + + + | EXPIRATION DATE | [id number] | | + + + + | BLOOD TYPE BARCODE | 5100 | | + + + + | BLOOD PRODUCT CODE | [id number] | | + + + + + + + | Specimen | Performing Laboratory | + + + | | [facility], TRANSFUSION MEDICINE [address] [facility] | | | [place] [address] | + + + ANTIBODY IDENTIFICATION (10/09/2017 5:01 PM) + + + + | Component | Value | Ref Range | + + + + | ANTIBODY 1 | Antibody present, unable to identify | | + + + + + + + | Specimen | Performing Laboratory | + + + | Blood | [facility], TRANSFUSION MEDICINE [address] [facility] | | | [place] [address] | + + + ANTIBODY SCREEN (10/09/2017 5:01 PM) + + + + | Component | Value | Ref Range | + + + + | Antibody Screen | Positive | | + + + + + + + | Specimen | Performing Laboratory | + + + | Blood | [facility], TRANSFUSION MEDICINE [address] [facility] | | | [place] [address] | + + + ABO & RH [...] | + + + | Blood | [facility], TRANSFUSION MEDICINE [address] | | | [place] [address] | + + + TYPE AND SCREEN [...] | ------ ABO & RH | | TYPE[[id number]] F | | inal result ANTIBODY | | SCREEN[[id number]] Fin | | al result Please view [...] | + + + | Blood | [facility], CORE [address] | | | [place] [address] | + + + + + | [...] + | | [facility] [address] [place] [address] | | | [place] [address] | + + + VASC LAB VENOUS DUPLEX LOWER EXTREMITY BILAT COMP (10/08/2017 10:05 AM) + + + | Specimen | Performing Laboratory | + + + | | [facility] VASC US | + + [...] [address] | | | [place] [address] | + + + CBC (HEMOGRAM) ONLY [...] | + + + | Blood | [facility], CORE [address] | | | [place] [address] | + + + + + | [...] | + + + | Blood | [facility], CORE [address] [place] [address] | | | [place] [address] | + + + + + | [...] | | ------ CBC (HEMOGRAM) | | ONLY[[id number]] Abnormal Final | | result Please view [...] | >60 | >60 mL/min | | ESTONIAN | | | + + + + | EGFR NON | >60 | >60 mL/min | | -ESTONIAN | | | + + + + [...] | + + + | Blood | [facility], CORE [address] | | | [place] [address] | + + + + + | [...] [address] | | | [place] [address] | + + + CAPILLARY BLOOD GLUCOSE (NO CHG), POC (10/07/2017 10:30 PM) + +---------+ + | Component | Value | Ref Range | + +---------+ + | BLOOD GLUCOSE, POC | 173 (H) | 70 - 99 mg/dL | + +---------+ + + + + | Specimen | Performing Laboratory | + + + | | [facility], POINT OF CARE TESTS [address] | | | [place] [address] | + + + CAPILLARY BLOOD GLUCOSE [...] [address] | | | [place] [address] | + + + CAPILLARY BLOOD GLUCOSE (NO CHG), POC (10/07/2017 11:43 AM) + +---------+ + | Component | Value | Ref Range | + +---------+ + | BLOOD GLUCOSE, POC | 142 (H) | 70 - 99 mg/dL | + +---------+ + + + + | Specimen | Performing Laboratory | + + + | | [facility], POINT OF CARE TESTS [address] | | | [place] [address] | + + + CAPILLARY BLOOD GLUCOSE [...] TESTS [address] | | | [place] [address] | + + + CBC (HEMOGRAM) ONLY [...] | + + + | Blood | [facility], CORE [address] | | | [place] [address] | + + + + + | [...] | + + + | Blood | [facility], CORE [address] | | | [place] [address] | + + + + + | [...] | | ------ CBC (HEMOGRAM) | | ONLY[[id number]] Abnormal Final | | result Please view [...] | >60 | >60 mL/min | | ESTONIAN | | | + + + + | EGFR NON | >60 | >60 mL/min | | -ESTONIAN | | | + + + + [...] | + + + | Blood | [facility], CORE [address] | | | [place] [address] | + + + + + | [...] [address] | | | [place] [address] | + + + CAPILLARY BLOOD GLUCOSE (NO CHG), POC (10/06/2017 6:03 PM) + +---------+ + | Component | Value | Ref Range | + +---------+ + | BLOOD GLUCOSE, POC | 107 (H) | 70 - 99 mg/dL | + +---------+ + + + + | Specimen | Performing Laboratory | + + + | | [facility], POINT OF CARE TESTS [address] | | | [place] [address] | + + + 12 LEAD ECG [...] Laboratory | + + + | | [facility] [address] [place] [address] | | | [place] [address] | + + + CAPILLARY BLOOD GLUCOSE (NO CHG), POC (10/06/2017 12:03 PM) + +-------+ + | Component | Value | Ref Range | + +-------+ + | BLOOD GLUCOSE, POC | 87 | 70 - 99 mg/dL | + +-------+ + + + + | Specimen | Performing Laboratory | + + + | | [facility], POINT OF CARE TESTS [address] | | | [place] [address] | + + + CBC (HEMOGRAM) ONLY [...] | + + + | Blood | [facility] [address] [facility] | | | [place] [address] | + + + + + | [...] | + + + | Blood | [facility], CORE [address] | | | [place] [address] | + + + + + | [...] | | ------ CBC (HEMOGRAM) | | ONLY[[id number]] Abnormal Final | | result Please view [...] | >60 | >60 mL/min | | ESTONIAN | | | + + + + | EGFR NON | >60 | >60 mL/min | | -ESTONIAN | | | + + + + [...] | + + + | Blood | [facility], CORE [address] | | | [place] [address] | + + + + + | [...] [address] | | | [place] [address] | + + + CAPILLARY BLOOD GLUCOSE (NO CHG), POC (10/06/2017 1:04 AM) + +-------+ + | Component | Value | Ref Range | + +-------+ + | BLOOD GLUCOSE, POC | 91 | 70 - 99 mg/dL | + +-------+ + + + + | Specimen | Performing Laboratory | + + + | | [facility], POINT OF CARE TESTS [address] | | | [place] [address] | + + + CAPILLARY BLOOD GLUCOSE (NO CHG), POC (10/05/2017 6:43 PM) + +---------+ + | Component | Value | Ref Range | + +---------+ + | BLOOD GLUCOSE, POC | 118 (H) | 70 - 99 mg/dL | + +---------+ + + + + | Specimen | Performing Laboratory | + + + | | [facility], POINT OF CARE TESTS [address] | | | [place] [address] | + + + CAPILLARY BLOOD GLUCOSE [...] TESTS [address] | | | [place] [address] | + + + 12 LEAD ECG [...] Laboratory | + + + | | [facility] [address] [place] [address] | | | [place] [address] | + + + CBC (HEMOGRAM) ONLY [...] | + + + | Blood | [facility], [address]ORE [address] | | | [place] [address] | + + + + + | [...] | + + + | Blood | [facility], CORE [address] [facility] | | | [place] [address] | + + + + + | [...] | | ------ CBC (HEMOGRAM) | | ONLY[[id number]] Abnormal Final | | result Please view [...] | >60 | >60 mL/min | | ESTONIAN | | | + + + + | EGFR NON | >60 | >60 mL/min | | -ESTONIAN | | | + + + + [...] | + + + | Blood | [facility], CORE [address] | | | [place] [address] | + + + + + | [...] Laboratory | + + + | | [facility], POINT OF CARE TESTS [address] | | | [place] [address] | + + + CAPILLARY BLOOD GLUCOSE (NO CHG), POC (10/04/2017 11:48 PM) + +---------+ + | Component | Value | Ref Range | + +---------+ + | BLOOD GLUCOSE, POC | 131 (H) | 70 - 99 mg/dL | + +---------+ + + + + | Specimen | Performing Laboratory | + + + | | [facility] POINT [facility] CARE TESTS [address] | | | [place] [address] | + + + CAPILLARY BLOOD GLUCOSE (NO CHG), POC (10/04/2017 5:47 PM) + +---------+ + | Component | Value | Ref Range | + +---------+ + | BLOOD GLUCOSE, POC | 123 (H) | 70 - 99 mg/dL | + +---------+ + + + + | Specimen | Performing Laboratory | + + + | | [facility], POINT OF CARE TESTS [address] | | | [place] [address] | + + + CAPILLARY BLOOD GLUCOSE [...] [address] | | | [place] [address] | + + + CAPILLARY BLOOD GLUCOSE (NO CHG), POC (10/04/2017 5:55 AM) + +---------+ + | Component | Value | Ref Range | + +---------+ + | BLOOD GLUCOSE, POC | 128 (H) | 70 - 99 mg/dL | + +---------+ + + + + | Specimen | Performing Laboratory | + + + | | [facility], POINT OF CARE TESTS [address] | | | [place] [address] | + + + CBC (HEMOGRAM) ONLY [...] | + + + | Blood | [facility], [facility] [place] [address] | | | [place] [address] | + + + + + | [...] | + + + | Blood | [facility], CORE [address] | | | [place] [address] | + + + + + | [...] | | ------ CBC (HEMOGRAM) | | ONLY[[id number]] Abnormal Final | | result Please view [...] | >60 | >60 mL/min | | ESTONIAN | | | + + + + | EGFR NON | >60 | >60 mL/min | | -ESTONIAN | | | + + + + [...] | + + + | Blood | [facility], CORE [address] | | | [place] [address] | + + + + + | [...] [address] | | | [place] [address] | + + + CAPILLARY BLOOD GLUCOSE [...] [address] | | | [place] [address] | + + + URINE, MICROSCOPIC EXAM [...] + | Urine - Clean catch | [facility], CORE [address] | | | [place] [address] | + + + RPR SERUM (10/03/2017 3:36 PM) + + + + | Component | Value | Ref Range | + + + + | RPR SRM QUAL | Non ReactiveComment: Rapid Plasma Reagin | Non Reactive | | | screening test is Non-Reactive. No further | | | | reflex testing is required.Performed by | | | | [facility],[address], [facility] | | | | [id number] esm.BULX, Gui | | | | MD Arcadio, Lab. Director | | | |www.BULX, Gui Ervin MD, Lab. Director | | + + + + + + + | Specimen | Performing Laboratory | + + + | Blood | [facility] [address] | | | [place] [address] | + + + VITAMIN B-12 (10/03/2017 [...] | + + + | Blood | [facility], CORE [address] | | | [place] [address] | + + + TSH (10/03/2017 3:36 PM) + + + + | Component | Value | Ref Range | + + + + | TSH | 0.33 (L) | 0.46 - 5.56 mIU/L | + + + + + + + | Specimen | Performing Laboratory | + + + | Blood | [facility], CORE [address] | | | [place] [address] | + + + + + | [...] | + + + | Blood | [facility], [facility] [address] | | | [place] [address] | + + + + + | Narrative | + + | HIV-1 p24 Ag and HIV-1,2 Ab not detected. Test modified from original | | events manager's approved specifications. The performance of the [employer] HIV Combo | | test, with or [...] + + | | [facility], POINT OF CARE TESTS [address] | | | [place] [address] | + + + CAPILLARY BLOOD GLUCOSE [...] [address] | | | [place] [address] | + + + CBC (HEMOGRAM) ONLY [...] | + + + | Blood | [facility], CORE [address] [facility] | | | [place] [address] | + + + + + | [...] | + + + | Blood | [facility], CORE [address] [place] [address] | | | [place] [address] | + + + + + | [...] | | ------ CBC (HEMOGRAM) | | ONLY[[id number]] Abnormal Final | | result Please view [...] | >60 | >60 mL/min | | ESTONIAN | | | + + + + | EGFR NON | >60 | >60 mL/min | | -ESTONIAN | | | + + + + [...] | + + + | Blood | [facility], CORE [address] [place] [address] | | | [place] [address] | + + + + + | [...] [address] | | | [place] [address] | + + + X-RAY SPINE CERVICAL 2 VIEWS (10/02/2017 10:32 PM) + + + | Specimen | Performing Laboratory | + + + | | [facility] VOICE RECOGNITION 2 | + [...] [address] | | | [place] [address] | + + + 12 LEAD ECG [...] Laboratory | + + + | | [facility] [address] | | | [place] [address] | + + + PROCEDURE NOTE (10/02/2017 [...] Laboratory | + + + | | [facility] VOICE RECOGNITION 2 | + + + + + | Narrative | + + | EXAM: FL CHEST 1 VIEW HISTORY: Evaluate PICC placement [...] Interface - 10/02/2017 2:07 PM PDT EXAM: FL CHEST 1 | | VIEW HISTORY: Evaluate [...] Laboratory | + + + | | [facility], POINT OF CARE TESTS [address] | | | [place] [address] | + + + X-RAY PORTABLE CHEST 1 VIEW (10/02/2017 8:56 AM) + + + | Specimen | Performing Laboratory | + + + | | [facility] VOICE RECOGNITION 2 | + + + + + | Narrative | + + | EXAM: FL CHEST 1 VIEW HISTORY: new leukocytosis, eval [...] now presented. Final signature: Marcelo Morley | Prabhakar CABRERA 10/02/2017 10:26 AM Preliminary: Marcelo Morley MD Dictation initiated: | | Marcelo Morley MD 10/02/2017 10:20 AM | + + + + | Procedure Note | + + | 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, Radiant Res In Interface - 10/02/2017 10:27 AM PDT EXAM: FL CHEST 1 | | VIEW HISTORY: new [...] [address] | | | [place] [address] | + + + CBC (HEMOGRAM) ONLY [...] | + + + | Blood | [facility], [facility] [place] [address] | | | [place] [address] | + + + + + | [...] | + + + | Blood | [facility], CORE [address] | | | [place] [address] | + + + + + | [...] | | ------ CBC (HEMOGRAM) | | ONLY[[id number]] Abnormal Final | | result Please view [...] | >60 | >60 mL/min | | ESTONIAN | | | + + + + | EGFR NON | >60 | >60 mL/min | | -ESTONIAN | | | + + + + [...] | + + + | Blood | [facility], CORE [address] | | | [place] [address] | + + + + [...] [address] | | | [place] [address] | + + + CAPILLARY BLOOD GLUCOSE [...] [address] | | | [place] [address] | + + + X-RAY ABD LTD FEEDING TUBE EVAL (10/01/2017 1:23 PM) + + + | Specimen | Performing Laboratory | + + + | | [facility] VOICE RECOGNITION 2 | + [...] Service Adal, Radiant Res In Interface - 10/01/2017 2:15 [...] [address] | | | [place] [address] | + + + VASC LAB VENOUS DUPLEX LOWER EXTREMITY BILAT COMP (10/01/2017 11:14 AM) + + + | Specimen | Performing Laboratory | + + + | | [facility] VASC US | + + [...] Note | + + | 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, [employer] In Interface - 10/01/2017 11:34 AM PDT [...] [address] | | | [place] [address] | + + + CBC (HEMOGRAM) ONLY [...] | + + + | Blood | [facility], CORE [address] [place] [address] | | | [place] [address] | + + + + + | [...] | + + + | Blood | [facility], CORE [address] | | | [place] [address] | + + + + + | [...] | | ------ CBC (HEMOGRAM) | | ONLY[[id number]] Abnormal Final | | result Please view [...] | >60 | >60 mL/min | | ESTONIAN | | | + + + + | EGFR NON | >60 | >60 mL/min | | -ESTONIAN | | | + + + + [...] | + + + | Blood | [facility], CORE [address] | | | [place] [address] | + + + + + | [...] + + | | [facility], POINT OF CARE TESTS [address] | | | [place] [address] | + + + CAPILLARY BLOOD GLUCOSE (NO CHG), POC (09/30/2017 6:01 PM) + +---------+ + | Component | Value | Ref Range | + +---------+ + | BLOOD GLUCOSE, POC | 102 (H) | 70 - 99 mg/dL | + +---------+ + + + + | Specimen | Performing Laboratory | + + + | | [facility], POINT OF CARE TESTS [address] | | | [place] [address] | + + + 12 LEAD ECG [...] | | [facility] [address] | | | [place] [address] | + + + CT HEAD WO [...] Note | + + | 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, AgentPair Res In Interface - 09/30/2017 1:28 PM [...] Laboratory | + + + | | [facility], POINT OF CARE TESTS [address] | | | [place] [address] | + + + CAPILLARY BLOOD GLUCOSE (NO CHG), POC (09/30/2017 6:26 AM) + +---------+ + | Component | Value | Ref Range | + +---------+ + | BLOOD GLUCOSE, POC | 151 (H) | 70 - 99 mg/dL | + +---------+ + + + + | Specimen | Performing Laboratory | + + + | | [facility] POINT OF CARE TESTS [address] | | | [place] [address] | + + + CBC (HEMOGRAM) ONLY [...] | + + + | Blood | [facility], CORE [address] [place] [address] | | | [place] [address] | + + + + + | [...] | + + + | Blood | [facility], CORE [address] | | | [place], [place] [address] | + + + + + | [...] | | ------ CBC (HEMOGRAM) | | ONLY[[id number]] Abnormal Final | | result Please view [...] | >60 | >60 mL/min | | ESTONIAN | | | + + + + | EGFR NON | >60 | >60 mL/min | | -ESTONIAN | | | + + + + [...] | + + + | Blood | [facility], CORE [address] | | | [place] [address] | + + + + + | [...] [address] | | | [place] [address] | + + + CAPILLARY BLOOD GLUCOSE [...] [address] | | | [place] [address] | + + + CAPILLARY BLOOD GLUCOSE (NO CHG), POC (09/29/2017 12:46 PM) + +---------+ + | Component | Value | Ref Range | + +---------+ + | BLOOD GLUCOSE, POC | 117 (H) | 70 - 99 mg/dL | + +---------+ + + + + | Specimen | Performing Laboratory | + + + | | [facility], POINT OF CARE TESTS [address] | | | [place] [address] | + + + 12 LEAD ECG [...] Laboratory | + + + | | [facility] [address] [place] [address] | | | [place] [address] | + + + CAPILLARY BLOOD GLUCOSE [...] [address] | | | [place] [address] | + + + MAGNESIUM, PLASMA (09/29/2017 4:30 AM) + +-------+ + | Component | Value | Ref Range | + +-------+ + | MAGNESIUM,PLASMA | 2.1 | 1.6 - 2.6 mg/dL | + +-------+ + + + + | Specimen | Performing Laboratory | + + + | Blood | [facility], CORE [address] | | | [place] [address] | + + + + + | Narrative | + + | Reference range change effective 15/17. | + + RENAL FUNCTION SET (NA,K,CL,CO2,BUN,CREAT,GLUC,CA,PHOS,ALB [...] | >60 | >60 mL/min | | ESTONIAN | | | + + + + | EGFR NON | >60 | >60 mL/min | | -ESTONIAN | | | + + + + [...] | + + + | Blood | [facility], CORE [address] [place] [address] | | | [place] [address] | + + + + + | [...] | + + + | Blood | [facility], CORE [address] | | | [place], [place] [address] | + + + + + | [...] | | ------ CBC (HEMOGRAM) | | ONLY[[id number]] Abnormal Final | | result Please view [...] [address] | | | [place] [address] | + + + CAPILLARY BLOOD GLUCOSE [...] [address] | | | [place] [address] | + + + CAPILLARY BLOOD GLUCOSE [...] [address] | | | [place] [address] | + + + 12 LEAD ECG [...] Laboratory | + + + | | [facility] [address] [place] [address] | | | [place] [address] | + + + CAPILLARY BLOOD GLUCOSE [...] [address] | | | [place] [address] | + + + CBC (HEMOGRAM) ONLY [...] | + + + | Blood | [facility], CORE [address] | | | [facility] [place] [address] | + + + + + | [...] | + + + | Blood | [facility], CORE [address] | | | [place] [address] | + + + + + | [...] | | ------ CBC (HEMOGRAM) | | ONLY[[id number]] Abnormal Final | | result Please view [...] | >60 | >60 mL/min | | ESTONIAN | | | + + + + | EGFR NON | >60 | >60 mL/min | | -ESTONIAN | | | + + + + [...] | + + + | Blood | [facility], CORE [address] | | | [place], [place] [address] | + + + + + | [address] | | | [facility] [place] [address] | + + + CAPILLARY BLOOD GLUCOSE (NO CHG), POC (09/27/2017 6:25 PM) + +---------+ + | Component | Value | Ref Range | + +---------+ + | BLOOD GLUCOSE, POC | 100 (H) | 70 - 99 mg/dL | + +---------+ + + + + | Specimen | Performing Laboratory | + + + | | [facility], PO[facility] [address] | | | [facility] [place] [address] | + + + MODIFIED BARIUM SWALLOWING (09/27/2017 1:38 PM) + + + | Specimen | Performing Laboratory | + + + | | [facility] VOICE RECOGNITION 2 | + + + [...] poorly cleared with dry swallows. [facility] for full details | | [...] TESTS [address] | | | [place] [address] | + + + CAPILLARY BLOOD GLUCOSE [...] [address] | | | [place] [address] | + + + CBC (HEMOGRAM) ONLY [...] | + + + | Blood | [facility], CORE [address] | | | [place] [address] | + + + + + | [...] | | ------ CBC (HEMOGRAM) | | ONLY[[id number]] Abnormal Final | | result Please view [...] | + + + | Blood | [facility], CORE [address] | | | [place] [address] | + + + + + | [...] | >60 | >60 mL/min | | ESTONIAN | | | + + + + | EGFR NON | >60 | >60 mL/min | | -ESTONIAN | | | + + + + [...] | + + + | Blood | [facility], CORE [address] | | | [place] [address] | + + + + + | [...] + + + | | [facility], POINT OF CARE TESTS [address] | | | [place] [address] | + + + CAPILLARY BLOOD GLUCOSE [...] [address] | | | [place] [address] | + + + 12 LEAD ECG [...] Laboratory | + + + | | [facility] [address] [place] [address] | | | [place] [address] | + + + CAPILLARY BLOOD GLUCOSE (NO CHG), POC (09/26/2017 12:37 PM) + +-------+ + | Component | Value | Ref Range | + +-------+ + | BLOOD GLUCOSE, POC | 88 | 70 - 99 mg/dL | + +-------+ + + + + | Specimen | Performing Laboratory | + + + | | [facility], POINT OF CARE TESTS [address] | | | [place] [address] | + + + CAPILLARY BLOOD GLUCOSE (NO CHG), POC (09/26/2017 9:22 AM) + +---------+ + | Component | Value | Ref Range | + +---------+ + | BLOOD GLUCOSE, POC | 119 (H) | 70 - 99 mg/dL | + +---------+ + + + + | Specimen | Performing Laboratory | + + + | | [facility], POINT OF CARE TESTS [address] | | | [place] [address] | + + + CAPILLARY BLOOD GLUCOSE [...] TESTS [address] | | | [place] [address] | + + + CBC (HEMOGRAM) ONLY [...] | + + + | Blood | [facility], CORE [address] [place] [address] | | | [place] [address] | + + + + + | [...] | + + + | Blood | [facility], CORE [address] | | | [place] [address] | + + + + + | [...] | | ------ CBC (HEMOGRAM) | | ONLY[[id number]] Abnormal Final | | result Please view [...] | >60 | >60 mL/min | | ESTONIAN | | | + + + + | EGFR NON | >60 | >60 mL/min | | -ESTONIAN | | | + + + + [...] | + + + | Blood | [facility], CORE [address] | | | [place] [address] | + + + + + | [...] | [facility] POINT OF CARE TESTS [address] | | | [place] [address] | + + + MRI BRAIN WWO [...] Note | + + | 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, Solvoyoant Res In Interface - 09/25/2017 12:32 PM [...] | + + + | Blood | [facility], CORE [address] | | | [place] [address] | + + + + + | [...] | + + + | Blood | [facility], CORE [address] | | | [place] [address] | + + + + + | [...] | | ------ CBC (HEMOGRAM) | | ONLY[[id number]] Abnormal Final | | result Please view [...] | >60 | >60 mL/min | | ESTONIAN | | | + + + + | EGFR NON | >60 | >60 mL/min | | -ESTONIAN | | | + + + + [...] | + + + | Blood | [facility], CORE [address] [place] [address] | | | [place] [address] | + + + + + | [...] | + + + | | [facility] [address] | | | [place] [address] | + + + MODIFIED BARIUM SWALLOWING [...] Laboratory | + + + | | [facility] VASC US | + + [...] | + + + | Blood | [facility], CORE [address] [place] [address] | | | [place] [address] | + + + + + [...] | >60 | >60 mL/min | | ESTONIAN | | | + + + + | EGFR NON | >60 | >60 mL/min | | -ESTONIAN | | | + + + + [...] | + + + | Blood | [facility], CORE [address] | | | [place] [address] | + + + + + | [...] | + + + | Blood | [facility], CORE [address] | | | [place] [address] | + + + + + | [...] | | ------ CBC (HEMOGRAM) | | ONLY[[id number]] Abnormal Final | | result Please view [...] | + + + | Blood | [facility], CORE [address] | | | [place] [address] | + + + + + | [...] | + + + | Blood | [facility], CORE [address] | | | [place] [address] | + + + + + | [...] | | ------ CBC (HEMOGRAM) | | ONLY[[id number]] Abnormal Final | | result Please view [...] | >60 | >60 mL/min | | ESTONIAN | | | + + + + | EGFR NON | >60 | >60 mL/min | | -ESTONIAN | | | + + + + [...] | + + + | Blood | [facility], CORE [address] | | | [place] [address] | + + + + + | [...] + + + | | [facility], POINT OF CARE TESTS [address] | | | [place] [address] | + + + CAPILLARY BLOOD GLUCOSE [...] TESTS [address] | | | [place] [address] | + + + CT HEAD WO [...] | + + + | Blood | [facility], CORE [address] | | | [place] [address] | + + + 12 LEAD ECG [...] Laboratory | + + + | | [facility] [address] [place] [address] | | | [place] [address] | + + + CBC (HEMOGRAM) ONLY [...] | + + + | Blood | [facility], CORE [address] [facility] | | | [place] [address] | + + + + + | [...] | + + + | Blood | [facility], CORE [address] | | | [place] [address] | + + + + + | [...] | | ------ CBC (HEMOGRAM) | | ONLY[[id number]] Abnormal Final | | result Please view [...] | >60 | >60 mL/min | | ESTONIAN | | | + + + + | EGFR NON | >60 | >60 mL/min | | -ESTONIAN | | | + + + + [...] | + + + | Blood | [facility], CORE [address] | | | [place] [address] | + + + + + | [...] [address] | | | [place] [address] | + + + CT HEAD WO CONTRAST (09/21/2017 9:53 PM) + + + | Specimen | Performing Laboratory | + + + | | [facility] VOICE RECOGNITION 2 | + [...] the report as now presented. Final signature: Navojt Orta MD | | 09/22/2017 8:40 AM [...] | + + + | Blood | [facility], CORE [address] | | | [place] [address] | + + + + + | [...] | + + + | Blood | [facility], CORE [address] | | | [place] [address] | + + + + + | [...] | | ------ CBC (HEMOGRAM) | | ONLY[[id number]] Abnormal Final | | result Please view [...] | >60 | >60 mL/min | | ESTONIAN | | | + + + + | EGFR NON | >60 | >60 mL/min | | -ESTONIAN | | | + + + + [...] | + + + | Blood | [facility], CORE [address] | | | [place] [address] | + + + + + | [...] Laboratory | + + + | | [facility] VOICE RECOGNITION 2 | + [...] 09/20/2017 6:24 PM Preliminary: Mega Wen | | MD Toy | + + + + | Procedure Note | + + | Service [employer], [employer] In Interface - 09/20/2017 6:25 PM PDT [...] of the stomach, coiled with tip gwendolyn nating and in the direction of the [...] Laboratory | + + + | | [facility] RADIOLOGY VOICE RECOGNITION 2 | + [...] Note | + + | 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, [employer] In Interface - 09/20/2017 6:26 PM [...] Note | + + | 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, [employer] In Interface - 09/20/2017 5:17 PM PDT [...] Laboratory | + + + | | [facility] [address] [place] [address] | | | [place] [address] | + + + CBC (HEMOGRAM) ONLY [...] | + + + | Blood | [facility], [address]ORE [address] [place] [address] | | | [place] [address] | + + + + + | [...] | + + + | Blood | [facility], [address] | | | [place], [place] [address] | + + + + + | [...] | | ------ CBC (HEMOGRAM) | | ONLY[[id number]] Abnormal Final | | result Please view [...] | >60 | >60 mL/min | | ESTONIAN | | | + + + + | EGFR NON | >60 | >60 mL/min | | -ESTONIAN | | | + + + + [...] | + + + | Blood | [facility], [address] | | | [place] [address] | + + + + + | [...] | + + + | Blood | [facility], [address] | | | [place] [address] | + + + + + | [...] | + + + | Blood | [facility], [address] | | | [place] [address] | + + + + + | [...] | | ------ CBC (HEMOGRAM) | | ONLY[[id number]] Abnormal Final | | result Please view [...] | >60 | >60 mL/min | | ESTONIAN | | | + + + + | EGFR NON | >60 | >60 mL/min | | -ESTONIAN | | | + + + + [...] | + + + | Blood | [facility], CORE [address] [place] [address] | | | [place] [address] | + + + + + | [...] | + + + | Blood | [facility], [address] | | | [place] [address] | + + + + + | [...] | + + + | Blood | [facility], [address] | | | [place] [address] | + + + + + | [...] | | ------ CBC (HEMOGRAM) | | ONLY[[id number]] Abnormal Final | | result Please view [...] | >60 | >60 mL/min | | ESTONIAN | | | + + + + | EGFR NON | >60 | >60 mL/min | | -ESTONIAN | | | + + + + [...] | + + + | Blood | [facility], [address] | | | [place] [address] | + + + + + | [...] Note | + + | 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, [employer] In Interface - 09/17/2017 11:53 AM [...] | + + + | Blood | [facility], [address] | | | [place] [address] | + + + + + | [...] | + + + | Blood | [facility], [address] [place] [address] | | | [place] [address] | + + + + + | [...] | | ------ CBC (HEMOGRAM) | | ONLY[[id number]] Abnormal Final | | result Please view [...] | >60 | >60 mL/min | | ESTONIAN | | | + + + + | EGFR NON | >60 | >60 mL/min | | -ESTONIAN | | | + + + + [...] | + + + | Blood | [facility], CORE [address] [place] [address] | | | [place] [address] | + + + + + | [...] Laboratory | + + + | | [facility] VOICE RECOGNITION | + + + + + | Narrative | + + | EXAM: FL CHEST PICC LINE CHECK HISTORY: PICC placement [...] Interface - 09/16/2017 1:34 PM PDT EXAM: FL CHEST | | PICC LINE CHECK HISTORY: [...] Laboratory | + + + | | [facility] VOICE RECOGNITION | + + + + + | Narrative | + + | EXAM: FL CHEST PICC LINE CHECK HISTORY: Evaluate PICC [...] Note | + + | 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, [employer] In Interface - 09/16/2017 11:41 AM PDT EXAM: FL CHEST | | PICC LINE CHECK HISTORY: [...] | + + + | Blood | [facility] [address] [facility] [address] | | | [place] [address] | + + + + + | [...] | + + + | Blood | [facility], CORE [address] | | | [place] [address] | + + + + + | [...] | | ------ CBC (HEMOGRAM) | | ONLY[[id number]] Abnormal Final | | result Please view [...] | >60 | >60 mL/min | | ESTONIAN | | | + + + + | EGFR NON | >60 | >60 mL/min | | -ESTONIAN | | | + + + + [...] | + + + | Blood | [facility], CORE [address] | | | [place] [address] | + + + + + | [...] | Narrative | + + | EXAM: FL CHEST 1 VIEW HISTORY: COMPARISON: None. FINDINGS: [...] Note | + + | 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, [employer] In Interface - 09/15/2017 6:45 PM PDT EXAM: FL CHEST 1 | | VIEW HISTORY: COMPARISON: [...] Laboratory | + + + | | [facility] VOICE RECOGNITION | + + + + + | Narrative | + + | EXAM: FL CHEST PICC LINE CHECK HISTORY: PICC COMPARISON: [...] Interface - 09/15/2017 6:43 PM PDT EXAM: FL CHEST | | PICC LINE CHECK HISTORY: [...] A pause verifies correct patient, procedure, equipment, computer support analyst and | | site/side marked as required. [...] Arm area Basilic vein. Catheter lot number: [id number] with a length of 55 cm | [...] Laboratory | + + + | | [facility] VOICE RECOGNITION | + + [...] | + + + | Blood | [facility], CORE [address] [place] [address] | | | [place] [address] | + + + + + | [...] | + + + | Blood | [facility], CORE [address] | | | [place] [address] | + + + + + | [...] | | ------ CBC (HEMOGRAM) | | ONLY[[id number]] Abnormal Final | | result Please view [...] | >60 | >60 mL/min | | ESTONIAN | | | + + + + | EGFR NON | >60 | >60 mL/min | | -ESTONIAN | | | + + + + [...] | + + + | Blood | [facility], CORE [address] | | | [place] [address] | + + + + + | [...] Laboratory | + + + | | [facility] RAD[facility] VOICE RECOGNITION | + + [...] | + + + | Blood | [facility], CORE [address] | | | [place] [address] | + + + + + | [...] | + + + | Blood | [facility], CORE [address] | | | [place], [place] [address] | + + + + + | Narrative | + + | Reference range change effective 8/15/17. | + + CBC ONLY (09/14/2017 5:22 AM) + + + | Specimen | Performing Laboratory | + + + | Blood | | + + + + + | Narrative | + + | The following orders were created for panel order CBC ONLY. | | Procedure | | Abnormality Status | | --------- | | ------ CBC (HEMOGRAM) | | ONLY[[id number]] Abnormal Final | | result Please view [...] | >60 | >60 mL/min | | ESTONIAN | | | + + + + | EGFR NON | >60 | >60 mL/min | | -ESTONIAN | | | + + + + [...] | + + + | Blood | [facility], [address]ORE [address] | | | [place] [address] | + + + + + | [...] | + + + | Blood | [facility], [address] | | | [place], [place] [address] | + + + + + | [...] | + + + | Blood | [facility], [address]ORE [address] | | | [place] [address] | + + + + + | [...] | | ------ CBC (HEMOGRAM) | | ONLY[[id number]] Abnormal Final | | result Please view [...] | >60 | >60 mL/min | | ESTONIAN | | | + + + + | EGFR NON | >60 | >60 mL/min | | -ESTONIAN | | | + + + + [...] | + + + | Blood | [facility], [address] [address] | | | [place] [address] | + + + + + | [...] | + + + | Blood | [facility], [address]ORE [address] | | | [place] [address] | + + + + + | [...] | + + + | Blood | [facility], CORE [address] | | | [place] [address] | + + + + + | [...] | | ------ CBC (HEMOGRAM) | | ONLY[[id number]] Abnormal Final | | result Please view [...] | >60 | >60 mL/min | | ESTONIAN | | | + + + + | EGFR NON | >60 | >60 mL/min | | -ESTONIAN | | | + + + + [...] | + + + | Blood | [facility], [address] [address] | | | [place] [address] | + + + + + | [...] Laboratory | + + + | | [facility] RAD[facility] VOICE RECOGNITION | + + [...] Laboratory | + + + | | [facility] RADIOLOGY VOICE RECOGNITION | + + + [...] | + + + | Blood | [facility], [address] | | | [place] [address] | + + + + + [...] | + + + | Blood | [facility], [address] [address] | | | [place] [address] | + + + + + | [...] | | ------ CBC (HEMOGRAM) | | ONLY[[id number]] Abnormal Final | | result Please view [...] | >60 | >60 mL/min | | ESTONIAN | | | + + + + | EGFR NON | >60 | >60 mL/min | | -ESTONIAN | | | + + + + [...] | + + + | Blood | [facility], [address]ORE [address] | | | [place] [address] | + + + + + | [...] | + + + | Blood | [facility], [address] | | | [place] [address] | + + + X-RAY ABD LTD FEEDING TUBE EVAL (09/10/2017 12:44 PM) + + + | Specimen | Performing Laboratory | + + + | | [facility] RAD[facility] VOICE RECOGNITION 2 | + [...] Laboratory | + + + | | [facility] VOICE RECOGNITION | + + + + + | Narrative | + + | STUDY: FL CHEST 1 VIEW 09/10/17 07:02:01 HISTORY: Possible [...] Note | + + | 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, [employer] In Interface - 09/10/2017 9:25 AM PDT STUDY: FL CHEST 1 | | VIEW 09/10/17 07:02:01 [...] | + + + | Blood | [facility], CORE [address] | | | [place] [address] | + + + AMYLASE, PLASMA (09/10/2017 5:08 AM) + +-------+ + | Component | Value | Ref Range | + +-------+ + | AMYLASE,PLASMA | 58 | 25 - 115 U/L | + +-------+ + + + + | Specimen | Performing Laboratory | + + + | Blood | [facility], CORE [address] [place] [address] | | | [place] [address] | + + + CBC (HEMOGRAM) ONLY [...] | + + + | Blood | [facility], CORE [address] [facility] | | | [place] [address] | + + + + + | [...] | + + + | Blood | [facility], [address] | | | [place] [address] | + + + + + | [...] | | ------ CBC (HEMOGRAM) | | ONLY[[id number]] Abnormal Final | | result Please view [...] | >60 | >60 mL/min | | ESTONIAN | | | + + + + | EGFR NON | >60 | >60 mL/min | | -ESTONIAN | | | + + + + [...] | + + + | Blood | [facility], [address] [place] [address] | | | [place] [address] | + + + + + | [...] + | | [facility] [address] [place] [address] | | | [place] [address] | + + + X-RAY ABD LTD [...] Note | + + | 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, [employer] In Interface - 09/10/2017 11:11 AM PDT [...] [address] | | | [place] [address] | + + + MAGNESIUM, PLASMA (09/09/2017 3:50 AM) + +-------+ + | Component | Value | Ref Range | + +-------+ + | MAGNESIUM,PLASMA | 2.0 | 1.6 - 2.6 mg/dL | + +-------+ + + + + | Specimen | Performing Laboratory | + + + | Blood | [facility], CORE [address] | | | [place] [address] | + + + + + | [...] | + + + | Blood | [facility], CORE [address] [facility] [address] | | | [place] [address] | + + + + + | [...] | | ------ CBC (HEMOGRAM) | | ONLY[[id number]] Abnormal Final | | result Please view [...] | >60 | >60 mL/min | | ESTONIAN | | | + + + + | EGFR NON | >60 | >60 mL/min | | -ESTONIAN | | | + + + + [...] | + + + | Blood | [facility], CORE [address] | | | [place] [address] | + + + + + [...] | + + + | Blood | [facility], [address]ORE [address] | | | [place] [address] | + + + + + | [...] | >60 | >60 mL/min | | ESTONIAN | | | + + + + | EGFR NON | >60 | >60 mL/min | | -ESTONIAN | | | + + + + [...] | + + + | Blood | [facility], CORE [address] | | | [place] [address] | + + + + + | [...] | | ------ CBC (HEMOGRAM) | | ONLY[[id number]] Abnormal Final | | result Please view [...] | + + + | Blood | [facility], C[address] [place] [address] | | | [place] [address] | + + + LIVER SET (AST,ALT,BILI [...] | + + + | Blood | [facility], [address] [address] | | | [place] [address] | + + + X-RAY ABD LTD FEEDING TUBE EVAL (09/08/2017 4:38 AM) + + + | Specimen | Performing Laboratory | + + + | | [facility] RAD[facility] VOICE RECOGNITION | + + [...] Laboratory | + + + | | [facility] [address] [place] [address] | | | [place] [address] | + + + X-RAY PORTABLE CHEST 1 VIEW (09/07/2017 6:12 AM) + + + | Specimen | Performing Laboratory | + + + | | [facility] VOICE RECOGNITION | + + + + + | Narrative | + + | EXAM: FL CHEST 1 VIEW HISTORY: Post extubation COMPARISON: [...] Interface - 09/07/2017 10:46 AM PDT EXAM: FL CHEST 1 | | VIEWHISTORY: Post extubationCOMPARISON: [...] | + + + | Blood | [facility], CORE [address] [facility] [address] | | | [place] [address] | + + + + + | [...] | >60 | >60 mL/min | | ESTONIAN | | | + + + + | EGFR NON | >60 | >60 mL/min | | -ESTONIAN | | | + + + + [...] | + + + | Blood | [facility], CORE [address] | | | [place] [address] | + + + + + | [...] | + + + | Blood | [facility], CORE [address] [facility] | | | [place] [address] | + + + + + | [...] | | ------ CBC (HEMOGRAM) | | ONLY[[id number]] Abnormal Final | | result Please view [...] Laboratory | + + + | | [facility] VOICE RECOGNITION | + + [...] Laboratory | + + + | | [facility] [address] [place] [address] | | | [place] [address] | + + + PROCEDURE NOTE (09/06/2017 [...] on the 1st attempt. Midline lot number [id number]; there was positive blood | | return. [...] | >60 | >60 mL/min | | ESTONIAN | | | + + + + | EGFR NON | >60 | >60 mL/min | | -ESTONIAN | | | + + + + [...] | + + + | Blood | [facility], CORE [address] | | | [place] [address] | + + + + + | [...] | + + + | Blood | [facility] [address] | | | [place] [address] | + + + + + | [...] | Narrative | + + | EXAM: FL CHEST 1 VIEW HISTORY: Evaluation after chest [...] Interface - 09/05/2017 10:16 AM PDT EXAM: FL CHEST 1 | | VIEW HISTORY: Evaluation [...] | + + + | Blood | [facility], CORE [address] | | | [place] [address] | + + + MAGNESIUM, PLASMA (09/05/2017 3:54 AM) + +-------+ + | Component | Value | Ref Range | + +-------+ + | MAGNESIUM,PLASMA | 1.8 | 1.6 - 2.6 mg/dL | + +-------+ + + + + | Specimen | Performing Laboratory | + + + | Blood | [facility], C[place] [address] | | | [place] [address] | + + + + + | [...] | | ------ CBC (HEMOGRAM) | | ONLY[[id number]] Abnormal Final | | result Please view [...] | >60 | >60 mL/min | | ESTONIAN | | | + + + + | EGFR NON | >60 | >60 mL/min | | -ESTONIAN | | | + + + + [...] | + + + | Blood | [facility], [address] | | | [place] [address] | + + + + + | [...] | >60 | >60 mL/min | | ESTONIAN | | | + + + + | EGFR NON | >60 | >60 mL/min | | -ESTONIAN | | | + + + + [...] | + + + | Blood | [facility] [address] | | | [place] [address] | + + + + + | [...] tomorrow morning. CB Henson Pager / ID: [phone] | + + CULTURE, SPUTUM (09/04/2017 1:17 PM) + + + | Specimen | Performing Laboratory | + + + | Sputum - | [facility] [place] [address] [place] [address] | | Endotracheal tube | [id number] | | tip | | + + [...] + | Urine - Catheter - | [facility], CORE [address] | | indwelling | [facility] [place] [place] [address] | + + + UA, DIPSTICK ONLY [...] + | SPECIFIC GRAVITY | 1.011Comment: Specific [place] performed by | 1.005 - 1.030 | | | refractometry | | + + + + + + + | Specimen | Performing Laboratory | + + + | Urine - Catheter - | [facility], [address] | | indwelling | [place] [address] | + + + CULTURE, BLOOD BACTI & YEAST [facility] (09/04/2017 1:16 PM) + + + + | Component | Value | Ref Range | + + + + | CULTURE RESULT | Final Report:No Bacteria or Yeast isolated | | | | at 5 days. | | + + + + + + + | Specimen | Performing Laboratory | + + + | Blood - Arterial | [facility], CORE [address] [facility] [address] | | line | [place] [address] | + + + CULTURE, BLOOD BACTI [...] + + | Blood - Peripheral | [facility], CORE [address] [place] [address] | | | [place] [address] | + + + CULTURE, BLOOD BACTI [...] ------ CULTURE, BLOOD | | BACTI & Y...[[id number]] Final | | result Please view results [...] | | ------ CULTURE, BLOOD | | DELMAI & Y...[[id number]] Final | | result Please view results [...] Laboratory | + + + | | [facility] [address] [facility] | | | [place] [address] | + + + X-RAY PORTABLE CHEST 1 VIEW (09/04/2017 7:04 AM) + + + | Specimen | Performing Laboratory | + + + | | [facility] RAD[facility] VOICE RECOGNITION | + + + + + | Narrative | + + | EXAM: FL CHEST 1 VIEW HISTORY: Hypoxia. Intubated. COMPARISON: [...] Note | + + | 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, [employer] In Interface - 09/04/2017 9:49 AM PDT EXAM: FL CHEST 1 | | VIEW HISTORY: Hypoxia. [...] | + + + | Blood | [facility], CORE [address] [place] [address] | | | [place] [address] | + + + CBC (HEMOGRAM) ONLY [...] | + + + | Blood | [facility], CORE [address] [place] [address] | | | [place] [address] | + + + RENAL FUNCTION SET [...] | >60 | >60 mL/min | | ESTONIAN | | | + + + + | EGFR NON | >60 | >60 mL/min | | -ESTONIAN | | | + + + + [...] | + + + | Blood | [facility], CORE [address] [place] [address] [place] | | | [place] [address] | + + + + + | [...] | + + + | Blood | [facility], CORE [address] | | | [place] [address] | + + + + + | [...] | | ------ CBC (HEMOGRAM) | | ONLY[[id number]] Abnormal Final | | result Please view [...] [address] | | | [place] [address] | + + + CAPILLARY BLOOD GLUCOSE (NO CHG), POC (09/04/2017 12:17 AM) + +-------+ + | Component | Value | Ref Range | + +-------+ + | BLOOD GLUCOSE, POC | 72 | 70 - 99 mg/dL | + +-------+ + + + + | Specimen | Performing Laboratory | + + + | | [facility] [address] | | | [place] [address] | + + + CAPILLARY BLOOD GLUCOSE [...] [address] | | | [place] [address] | + + + CAPILLARY BLOOD GLUCOSE (NO CHG), POC (09/03/2017 1:30 PM) + +-------+ + | Component | Value | Ref Range | + +-------+ + | BLOOD GLUCOSE, POC | 97 | 70 - 99 mg/dL | + +-------+ + + + + | Specimen | Performing Laboratory | + + + | | [facility] [address] | | | [place] [address] | + + + VASC LAB VENOUS DUPLEX LOWER EXTREMITY BILAT COMP (09/03/2017 9:51 AM) + + + | Specimen | Performing Laboratory | + + + | | [facility] | + + + + + [...] Note | + + | 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, [employer] In Interface - 09/03/2017 10:27 AM PDT [...] + + + | Sputum - | [facility] [address] [place] [address] | | Expectorated | [id number] | + + + + + | [...] | + + + | Blood | [facility], CORE [address] | | | [place] [address] | + + + X-RAY ABD LTD FEEDING TUBE EVAL (09/03/2017 4:32 AM) + + + | Specimen | Performing Laboratory | + + + | | [facility] RAD[facility] VOICE RECOGNITION | + + [...] + + + | Sputum - | [facility] [place] [address] [place], [place] | | Expectorated | [id number] | + + + + + | [...] | + + + | Blood | [facility], CORE [address] [facility] [address] | | | [place] [address] | + + + CBC (HEMOGRAM) ONLY [...] | + + + | Blood | [facility], CORE [address] | | | [place] [address] | + + + RENAL FUNCTION SET [...] | >60 | >60 mL/min | | ESTONIAN | | | + + + + | EGFR NON | >60 | >60 mL/min | | -ESTONIAN | | | + + + + [...] | + + + | Blood | [facility], CORE [address] [facility] [address] | | | [place] [address] | + + + + + | [...] | + + + | Blood | [facility], CORE [address] [facility] [address] | | | [place] [address] | + + + + + | [...] | | ------ CBC (HEMOGRAM) | | ONLY[[id number]] Abnormal Final | | result Please view results for these tests on the | | individual orders. | + + OPERATION RECORD (09/02/2017 6:53 PM) + + | Procedure Note | + + | Fidelina Shields MD - 09/02/2017 6:53 PM PDT Date of Service: 09/02/2017 | | Attending Surgeon: Fidelina Shields MD Production Statistical Clerk(s): | | Ajay Garcia MD, resident. [...] 09/02/2017 18:15:29DT: 09/02/2017 18:53:52Job #: | | [id number] to federal Medicare and Medicaid regulations I was present for | | the entire procedure.Fidelina Tenorio ProfessorDepartment of SurgeryOffice: | | [phone]: [id number] has been electronically signed by Fidelina Shields MD, | | 09/03/2017 at 9:11 AM. | | | | | |Fidelina Shields MD | |Medical Information Officer | |Department of Surgery | |Office: [phone] | |Pager: [phone] | | | |This has been electronically [...] | + + + | Blood | [facility], CORE [address] [place] [address] | | | [place] [address] | + + + BLOOD GASES, ARTERIAL [...] | + + + | Blood | [facility], CORE [address] | | | [facility] [place] [place] [address] | + + + CULTURE, AFB (ALL SPEC TYPES EXCEPT BLOOD) (09/02/2017 5:10 PM) + + + | Specimen | Performing Laboratory | + + + | Sputum - | [facility] [address] [place], [place] | | Expectorated | [id number] | + + + + + | [...] | + + + | Blood | [facility], CORE [address] | | | [place] [address] | + + + + + | [...] | >60 | >60 mL/min | | ESTONIAN | | | + + + + | EGFR NON | >60 | >60 mL/min | | -ESTONIAN | | | + + + + [...] | + + + | Blood | [facility], CORE [address] | | | [place] [address] | + + + + + | [...] INGRID Zhang | | Yolanda Garcia Surgery [id number] Pursuant to federal Medicare and Medicaid regulations I | | was present for the entire procedure. Fidelina Shields MD Production Statistical Clerk | | Professor Department of Surgery Office: [phone] Pager: [phone] This has been | | electronically signed [...] | + + + | Blood | [facility], CORE [address] | | | [place] [address] | + + + INR (09/02/2017 9:39 AM) + + + + | Component | Value | Ref Range | + + + + | INR | 1.26 (H) | 0.90 - 1.20 INR | + + + + + + + | Specimen | Performing Laboratory | + + + | Blood | [facility], CORE [address] | | | [place] [address] | + + + + + | [...] | | Attending Surgeon: Fidelina Shields MD Production Statistical Clerk(s): Haim Peralta MD. | | Ajay [...] 09/02/2017 06:17:53DT: 09/02/2017 | | 06:51:37Job #: [id number] to federal Medicare and Medicaid regulations I | | was present for the entire procedure.Fidelina Tenorio ProfessorDepartment of | | SurgeryOffice: [phone]: [id number] has been electronically signed by Fidelina Snyder | | MD Cornelius, 09/02/2017 at 10:40 AM. | | | | | |Pursuant to federal Medicare and Medicaid regulations I was present for the entire procedur e. | | | | | | | |Fidelina Shields MD | |Medical Information Officer | |Department of Surgery | |Office: [phone] | |Pager: [phone] | | | |This has been electronically [...] | + + + | Blood | [facility], [address] [address] | | | [place] [address] | + + + HEMATOCRIT (09/02/2017 5:16 AM) + + + + | Component | Value | Ref Range | + + + + | HEMATOCRIT | 34.0 (L) | 41.0 - 53.0 % | + + + + + + + | Specimen | Performing Laboratory | + + + | Blood | [facility] [address] [address] | | | [place] [address] | + + + PRODUCT - RED CELLS LEUKOREDUCED (09/02/2017 2:53 AM) + + + + | Component | Value | Ref Range | + + + + | PRODUCT DESCRIPTION | -1 RED BLOOD CELL ADENINE-SALINE ADDED | | | | LEUKOCYTE | | + + + + | PRODUCT UNIT # | [id number] | | + + + + | UNIT ABO | O | | + + + + | UNIT RH | POS | | + + + + | STATUS OF UNIT | Presumed Transfused | | + + + + | EXPIRATION DATE | [id number] | | + + + + | BLOOD TYPE BARCODE | 5100 | | + + + + | BLOOD PRODUCT CODE | [id number] | | + + + + + + + | Specimen | Performing Laboratory | + + + | | [facility], TRANSFUSION MEDICINE [address] [facility] | | | [place] [address] | + + + CT PELVIS WO IV CONTRAST (09/02/2017 1:45 AM) + + + | Specimen | Performing Laboratory | + + + | | [facility] RADI[facility] VOICE RECOGNITION | + + [...] | + + + | Blood | [facility], [address] [address] | | | [place] [address] | + + + RENAL FUNCTION SET [...] | >60 | >60 mL/min | | ESTONIAN | | | + + + + | EGFR NON | >60 | >60 mL/min | | -ESTONIAN | | | + + + + [...] | + + + | Blood | [facility], CORE [address] | | | [place] [address] | + + + + + | [...] | + + + | Blood | [facility] [place] [address] | | | [place] [address] | + + + + + | [...] | | ------ CBC (HEMOGRAM) | | ONLY[[id number]] Abnormal Final | | result Please view [...] | | (http://www.cdc.gov/mmwr/preview/mmwrhtml/r | | | | [email or web address].htm), for information concerning | | | | test performance in low-prevalence | | | | populations and use in occupational | | | | screening. | | + + + + | NIL | 0.05Comment: Performed by [facility] | IU/mL | | | Laboratories, | | | | [address], | | | | [place] [address] | | | | [phone] | | | | [email or web address], Gui Ervin MD - | | | | Lab. Director | | + + + + | TB AG-NIL | 0.26 | 0.00 - 0.34 IU/mL | + + + + | MITOGEN-NIL | 9.35 | IU/mL | + + + + + + + | Specimen | Performing Laboratory | + + + | Blood | [facility] [address] [place], [place] | | | [address] | + + + LACTATE (09/01/2017 8:18 PM) + +-------+ + | Component | Value | Ref Range | + +-------+ + | LACTATE | 1.6 | mmol/L | + +-------+ + + + + | Specimen | Performing Laboratory | + + + | Blood | [facility], CORE [address] | | | [place] [address] | + + + + + | [...] | + + + | Blood | [facility], CORE [address] | | | [place] [address] | + + + X-RAY KNEE 2 VIEWS LEFT (09/01/2017 7:48 PM) + + + | Specimen | Performing Laboratory | + + + | | [facility] VOICE RECOGNITION | + + [...] Note | + + | 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, [employer] In Interface - 09/02/2017 8:55 AM PDT [...] | Narrative | + + | EXAM: FL CHEST 1 VIEW HISTORY: Hypoxemia COMPARISON: 09/01/17 [...] Interface - 09/02/2017 10:34 AM PDT EXAM: FL CHEST 1 | | VIEW HISTORY: HypoxemiaCOMPARISON: [...] | + + + | Blood | [facility], CORE [address] | | | [place] [address] | + + + HEMATOCRIT (09/01/2017 5:43 PM) + + + + | Component | Value | Ref Range | + + + + | HEMATOCRIT | 34.1 (L) | 41.0 - 53.0 % | + + + + + + + | Specimen | Performing Laboratory | + + + | Blood | [facility], CORE [address] | | | [place] [address] | + + + PRODUCT - PLATELET PHERESIS LEUKOREDUCED (09/01/2017 4:42 PM) + + + + | Component | Value | Ref Range | + + + + | PRODUCT DESCRIPTION | PLATELETS PHERESIS LEUKOCYTE REDUCED | | + + + + | PRODUCT UNIT # | [id number] | | + + + + | UNIT ABO | O | | + + + + | UNIT RH | POS | | + + + + | STATUS OF UNIT | Presumed Transfused | | + + + + | EXPIRATION DATE | [id number] | | + + + + | BLOOD TYPE BARCODE | | | + + + + | BLOOD PRODUCT CODE | [id number] | | + + + + + + + | Specimen | Performing Laboratory | + + + | | [facility], TRANSFUSION MEDICINE [address] [place] [address] | | | [place] [address] | + + + BLOOD GASES, ARTERIAL [...] | + + + | Blood | [facility], CORE [address] | | | [place] [address] | + + + LACTATE (09/01/2017 4:19 PM) + +-------+ + | Component | Value | Ref Range | + +-------+ + | LACTATE | 1.6 | mmol/L | + +-------+ + + + + | Specimen | Performing Laboratory | + + + | Blood | [facility] [place] [address] | | | [place] [address] | + + + + + | [...] | + + + | Blood | [facility], CORE [address] | | | [place] [address] | + + + COMPLETE METABOLIC SET [...] | >60 | >60 mL/min | | ESTONIAN | | | + + + + | EGFR NON | >60 | >60 mL/min | | -ESTONIAN | | | + + + + [...] | + + + | Blood | [facility], CORE [address] | | | [place] [address] | + + + + + | [...] | | ------ CBC (HEMOGRAM) | | ONLY[[id number]] Abnormal Final | | result Please view [...] | + + + | Blood | [facility], [address]ORE [address] | | | [place] [address] | + + + + + | [...] | + + + | Blood | [facility], CORE [address] | | | [place] [address] | + + + + + | [...] IR Fellow: George Shah MD VS Fellow: rTey Thomas MD | | Preoperative diagnosis: pelvic [...] micropuncture access set was exchanged for a Asantae | | wire. Under fluoroscopic guidance, a 5 Fr flush catheter was used to evaluate the | | distal abdominal aorta and pelvic vasculature. A wire and catheter were then used to | | select the left common and internal iliac arteries from the right [employer] MACHINE OPERATOR approach. DSA | | was [...] | | iliac arteries from the right [employer] MACHINE OPERATOR approach. DSA was performed from [...] and internal iliac arteries from the right [employer] MACHINE OPERATOR approach. DSA was performed from [...] | + + + | Blood | [facility], POINT OF CARE TESTS [address] [facility] | | | [place] [address] | + + + EXPLORATORY LAPAROTOMY (09/01/2017 12:31 PM) + + | Narrative | + + | Fidelina Shields MD 09/01/2017 12:42 PM BRIEF OPERATIVE NOTE: | | Date: 09/01/2017 Author: Fidelina Shields MD Attending Physician: | | Fidelina Shields MD Production Statistical Clerk(s): Haim Peralta MD, Glo Olmos MD | [...] the case. | | Fidelina Shields MD Medical Information Officer Division of Trauma, Critical Care and | | Acute Care Surgery Office: [phone] Pager: [phone] | + + ABG-FULL ABL, POC (09/01/2017 [...] | + + + | Blood | [facility] POINT OF CARE TESTS [address] | | | [place] [address] | + + + CREATININE, BODY FLUID (09/01/2017 11:52 AM) + +-------+ + | Component | Value | Ref Range | + +-------+ + | CREATININE BODY | 0.60 | mg/dL | | FLUID | | | + +-------+ + + + + | Specimen | Performing Laboratory | + + + | Fluid - Abdominal | [facility], CORE [address] | | | [place] [address] | + + + + + | [...] | + + + | Blood | [facility], POINT OF CARE TESTS [address] | | | [place] [address] | + + + PRODUCT - PLATELET PHERESIS LEUKOREDUCED (09/01/2017 9:56 AM) + + + + | Component | Value | Ref Range | + + + + | PRODUCT DESCRIPTION | PLATELETS PHERESIS LEUKOCYTES REDUCED | | + + + + | PRODUCT UNIT # | [id number] | | + + + + | UNIT ABO | A | | + + + + | UNIT RH | POS | | + + + + | STATUS OF UNIT | Returned to Blood Bank | | + + + + | EXPIRATION DATE | [id number] | | + + + + | BLOOD TYPE BARCODE | 6200 | | + + + + | BLOOD PRODUCT CODE | [id number] | | + + + + + + + | Specimen | Performing Laboratory | + + + | | [facility], TRANSFUSION MEDICINE [address] | | | [address] [place] [address] | + + + PRODUCT - FRESH FROZEN PLASMA (09/01/2017 9:53 AM) + + + + | Component | Value | Ref Range | + + + + | PRODUCT DESCRIPTION | LIQUID PLASMA, IRRADIATED | | + + + + | PRODUCT UNIT # | [id number] | | + + + + | UNIT ABO | A | | + + + + | UNIT RH | POS | | + + + + | STATUS OF UNIT | Returned to Blood Bank | | + + + + | EXPIRATION DATE | [id number] | | + + + + | BLOOD TYPE BARCODE | 6200 | | + + + + | BLOOD PRODUCT CODE | [id number] | | + + + + + + + | Specimen | Performing Laboratory | + + + | | [facility], TRANSFUSION MEDICINE [address] | | | [place] [address] | + + + PRODUCT - FRESH FROZEN PLASMA (09/01/2017 9:53 AM) + + + + | Component | Value | Ref Range | + + + + | PRODUCT DESCRIPTION | LIQUID PLASMA, IRRADIATED | | + + + + | PRODUCT UNIT # | [id number] | | + + + + | UNIT ABO | A | | + + + + | UNIT RH | POS | | + + + + | STATUS OF UNIT | Returned to Blood Bank | | + + + + | EXPIRATION DATE | [id number] | | + + + + | BLOOD TYPE BARCODE | 6200 | | + + + + | BLOOD PRODUCT CODE | [id number] | | + + + + + + + | Specimen | Performing Laboratory | + + + | | [facility], TRANSFUSION MEDICINE [address] | | | [place] [address] | + + + PRODUCT - RED CELLS LEUKOREDUCED (09/01/2017 9:49 AM) + + + + | Component | Value | Ref Range | + + + + | PRODUCT DESCRIPTION | -3 RED BLOOD CELLS ADENINE-SALINE ADDED | | | | LEUKOCY | | + + + + | PRODUCT UNIT # | [id number] | | + + + + | UNIT ABO | O | | + + + + | UNIT RH | POS | | + + + + | STATUS OF UNIT | Returned to Blood Bank | | + + + + | EXPIRATION DATE | [id number] | | + + + + | BLOOD TYPE BARCODE | 5100 | | + + + + | BLOOD PRODUCT CODE | [id number] | | + + + + + + + | Specimen | Performing Laboratory | + + + | | [facility], TRANSFUSION MEDICINE [address] [place] [address] | | | [place] [address] | + + + PRODUCT - RED CELLS LEUKOREDUCED (09/01/2017 9:49 AM) + + + + | Component | Value | Ref Range | + + + + | PRODUCT DESCRIPTION | -3 RED BLOOD CELLS ADENINE-SALINE ADDED | | | | LEUKOCY | | + + + + | PRODUCT UNIT # | [id number] | | + + + + | UNIT ABO | O | | + + + + | UNIT RH | POS | | + + + + | STATUS OF UNIT | Returned to Blood Bank | | + + + + | EXPIRATION DATE | [id number] | | + + + + | BLOOD TYPE BARCODE | 5100 | | + + + + | BLOOD PRODUCT CODE | [id number] | | + + + + + + + | Specimen | Performing Laboratory | + + + | | [facility], TRANSFUSION MEDICINE [address] [facility] | | | [address] [place] [address] | + + + PRODUCT - RED CELLS LEUKOREDUCED (09/01/2017 9:49 AM) + + + + | Component | Value | Ref Range | + + + + | PRODUCT DESCRIPTION | -1 RED BLOOD CELL ADENINE-SALINE ADDED | | | | LEUKOCYTE | | + + + + | PRODUCT UNIT # | [id number] | | + + + + | UNIT ABO | O | | + + + + | UNIT RH | POS | | + + + + | STATUS OF UNIT | Returned to Blood Bank | | + + + + | EXPIRATION DATE | [id number] | | + + + + | BLOOD TYPE BARCODE | 5100 | | + + + + | BLOOD PRODUCT CODE | [id number] | | + + + + + + + | Specimen | Performing Laboratory | + + + | | [facility], TRANSFUSION MEDICINE [address] | | | [place] [address] | + + + PRODUCT - RED CELLS LEUKOREDUCED (09/01/2017 9:49 AM) + + + + | Component | Value | Ref Range | + + + + | PRODUCT DESCRIPTION | -1 RED BLOOD CELL ADENINE-SALINE ADDED | | | | LEUKOCYTE | | + + + + | PRODUCT UNIT # | [id number] | | + + + + | UNIT ABO | O | | + + + + | UNIT RH | POS | | + + + + | STATUS OF UNIT | Returned to Blood Bank | | + + + + | EXPIRATION DATE | [id number] | | + + + + | BLOOD TYPE BARCODE | 5100 | | + + + + | BLOOD PRODUCT CODE | [id number] | | + + + + + + + | Specimen | Performing Laboratory | + + + | | [facility], TRANSFUSION MEDICINE [address] [facility] | | | [address] [facility] [address] | + + + PRODUCT - RED CELLS LEUKOREDUCED (09/01/2017 9:49 AM) + + + + | Component | Value | Ref Range | + + + + | PRODUCT DESCRIPTION | -1 RED BLOOD CELL ADENINE-SALINE ADDED | | | | LEUKOCYTE | | + + + + | PRODUCT UNIT # | [id number] | | + + + + | UNIT ABO | O | | + + + + | UNIT RH | POS | | + + + + | STATUS OF UNIT | Returned to Blood Bank | | + + + + | EXPIRATION DATE | [id number] | | + + + + | BLOOD TYPE BARCODE | 5100 | | + + + + | BLOOD PRODUCT CODE | [id number] | | + + + + + + + | Specimen | Performing Laboratory | + + + | | [facility], TRANSFUSION MEDICINE [address] [facility] | | | [place] [address] | + + + PRODUCT - RED CELLS LEUKOREDUCED (09/01/2017 9:49 AM) + + + + | Component | Value | Ref Range | + + + + | PRODUCT DESCRIPTION | -1 RED BLOOD CELL ADENINE-SALINE ADDED | | | | LEUKOCYTE | | + + + + | PRODUCT UNIT # | [id number] | | + + + + | UNIT ABO | O | | + + + + | UNIT RH | POS | | + + + + | STATUS OF UNIT | Returned to Blood Bank | | + + + + | EXPIRATION DATE | [id number] | | + + + + | BLOOD TYPE BARCODE | 5100 | | + + + + | BLOOD PRODUCT CODE | [id number] | | + + + + + + + | Specimen | Performing Laboratory | + + + | | [facility], TRANSFUSION MEDICINE [address] [facility] | | | [place] [address] | + + + PRODUCT - FRESH FROZEN PLASMA (09/01/2017 9:46 AM) + + + + | Component | Value | Ref Range | + + + + | PRODUCT DESCRIPTION | PLASMA THAWED | | + + + + | PRODUCT UNIT # | [id number] | | + + + + | UNIT ABO | B | | + + + + | UNIT RH | POS | | + + + + | STATUS OF UNIT | Returned to Blood Bank | | + + + + | EXPIRATION DATE | [id number] | | + + + + | BLOOD TYPE BARCODE | 7300 | | + + + + | BLOOD PRODUCT CODE | [id number] | | + + + + + + + | Specimen | Performing Laboratory | + + + | | [facility], TRANSFUSION MEDICINE [address] | | | [address] [place] [address] | + + + PRODUCT - FRESH FROZEN PLASMA (09/01/2017 9:46 AM) + + + + | Component | Value | Ref Range | + + + + | PRODUCT DESCRIPTION | PLASMA THAWED | | + + + + | PRODUCT UNIT # | [id number] | | + + + + | UNIT ABO | B | | + + + + | UNIT RH | POS | | + + + + | STATUS OF UNIT | Returned to Blood Bank | | + + + + | EXPIRATION DATE | [id number] | | + + + + | BLOOD TYPE BARCODE | 7300 | | + + + + | BLOOD PRODUCT CODE | [id number] | | + + + + + + + | Specimen | Performing Laboratory | + + + | | [facility], TRANSFUSION MEDICINE [address] [facility] | | | [place] [address] | + + + PRODUCT - FRESH FROZEN PLASMA (09/01/2017 9:46 AM) + + + + | Component | Value | Ref Range | + + + + | PRODUCT DESCRIPTION | LIQUID PLASMA, IRRADIATED | | + + + + | PRODUCT UNIT # | [id number] | | + + + + | UNIT ABO | A | | + + + + | UNIT RH | POS | | + + + + | STATUS OF UNIT | Returned to Blood Bank | | + + + + | EXPIRATION DATE | [id number] | | + + + + | BLOOD TYPE BARCODE | 6200 | | + + + + | BLOOD PRODUCT CODE | [id number] | | + + + + + + + | Specimen | Performing Laboratory | + + + | | [facility], TRANSFUSION MEDICINE [address] [facility] | | | [place] [address] | + + + PRODUCT - FRESH FROZEN PLASMA (09/01/2017 9:46 AM) + + + + | Component | Value | Ref Range | + + + + | PRODUCT DESCRIPTION | LIQUID PLASMA, IRRADIATED | | + + + + | PRODUCT UNIT # | [id number] | | + + + + | UNIT ABO | A | | + + + + | UNIT RH | POS | | + + + + | STATUS OF UNIT | Returned to Blood Bank | | + + + + | EXPIRATION DATE | [id number] | | + + + + | BLOOD TYPE BARCODE | 6200 | | + + + + | BLOOD PRODUCT CODE | [id number] | | + + + + + + + | Specimen | Performing Laboratory | + + + | | [facility], TRANSFUSION MEDICINE [address] [facility] | | | [place] [address] | + + + PRODUCT - FRESH FROZEN PLASMA (09/01/2017 9:46 AM) + + + + | Component | Value | Ref Range | + + + + | PRODUCT DESCRIPTION | LIQUID PLASMA, IRRADIATED | | + + + + | PRODUCT UNIT # | [id number] | | + + + + | UNIT ABO | A | | + + + + | UNIT RH | POS | | + + + + | STATUS OF UNIT | Returned to Blood Bank | | + + + + | EXPIRATION DATE | [id number] | | + + + + | BLOOD TYPE BARCODE | 6200 | | + + + + | BLOOD PRODUCT CODE | [id number] | | + + + + + + + | Specimen | Performing Laboratory | + + + | | [facility], TRANSFUSION MEDICINE [address] [facility] | | | [place] [address] | + + + PRODUCT - FRESH FROZEN PLASMA (09/01/2017 9:46 AM) + + + + | Component | Value | Ref Range | + + + + | PRODUCT DESCRIPTION | LIQUID PLASMA, IRRADIATED | | + + + + | PRODUCT UNIT # | [id number] | | + + + + | UNIT ABO | A | | + + + + | UNIT RH | POS | | + + + + | STATUS OF UNIT | Returned to Blood Bank | | + + + + | EXPIRATION DATE | [id number] | | + + + + | BLOOD TYPE BARCODE | 6200 | | + + + + | BLOOD PRODUCT CODE | [id number] | | + + + + + + + | Specimen | Performing Laboratory | + + + | | [facility], TRANSFUSION MEDICINE [address] [facility] | | | [place] [address] | + + + PRODUCT - PLATELET PHERESIS LEUKOREDUCED (09/01/2017 9:43 AM) + + + + | Component | Value | Ref Range | + + + + | PRODUCT DESCRIPTION | PLATELETS PHERESIS LEUKOCYTE REDUCED | | + + + + | PRODUCT UNIT # | [id number] | | + + + + | UNIT ABO | A | | + + + + | UNIT RH | POS | | + + + + | STATUS OF UNIT | Presumed Transfused | | + + + + | EXPIRATION DATE | [id number] | | + + + + | BLOOD TYPE BARCODE | 6200 | | + + + + | BLOOD PRODUCT CODE | [id number] | | + + + + + + + | Specimen | Performing Laboratory | + + + | | [facility], TRANSFUSION MEDICINE [address] [facility] | | | [place] [address] | + + + PRODUCT - FRESH FROZEN PLASMA (09/01/2017 9:35 AM) + + + + | Component | Value | Ref Range | + + + + | PRODUCT DESCRIPTION | LIQUID PLASMA, IRRADIATED | | + + + + | PRODUCT UNIT # | [id number] | | + + + + | UNIT ABO | A | | + + + + | UNIT RH | NEG | | + + + + | STATUS OF UNIT | Presumed Transfused | | + + + + | EXPIRATION DATE | [id number] | | + + + + | BLOOD TYPE BARCODE | | | + + + + | BLOOD PRODUCT CODE | [id number] | | + + + + + + + | Specimen | Performing Laboratory | + + + | | [facility], TRANSFUSION MEDICINE [address] [facility] | | | [place] [address] | + + + PRODUCT - FRESH FROZEN PLASMA (09/01/2017 9:35 AM) + + + + | Component | Value | Ref Range | + + + + | PRODUCT DESCRIPTION | LIQUID PLASMA, IRRADIATED | | + + + + | PRODUCT UNIT # | [id number] | | + + + + | UNIT ABO | A | | + + + + | UNIT RH | NEG | | + + + + | STATUS OF UNIT | Returned to Blood Bank | | + + + + | EXPIRATION DATE | [id number] | | + + + + | BLOOD TYPE BARCODE | 0600 | | + + + + | BLOOD PRODUCT CODE | [id number] | | + + + + + + + | Specimen | Performing Laboratory | + + + | | [facility], TRANSFUSION MEDICINE [address] [facility] | | | [place] [address] | + + + PRODUCT - FRESH FROZEN PLASMA (09/01/2017 9:35 AM) + + + + | Component | Value | Ref Range | + + + + | PRODUCT DESCRIPTION | LIQUID PLASMA, IRRADIATED | | + + + + | PRODUCT UNIT # | [id number] | | + + + + | UNIT ABO | A | | + + + + | UNIT RH | POS | | + + + + | STATUS OF UNIT | Returned to Blood Bank | | + + + + | EXPIRATION DATE | [id number] | | + + + + | BLOOD TYPE BARCODE | 6200 | | + + + + | BLOOD PRODUCT CODE | [id number] | | + + + + + + + | Specimen | Performing Laboratory | + + + | | [facility], TRANSFUSION MEDICINE [address] [facility] | | | [place] [address] | + + + PRODUCT - FRESH FROZEN PLASMA (09/01/2017 9:35 AM) + + + + | Component | Value | Ref Range | + + + + | PRODUCT DESCRIPTION | LIQUID PLASMA, IRRADIATED | | + + + + | PRODUCT UNIT # | [id number] | | + + + + | UNIT ABO | A | | + + + + | UNIT RH | POS | | + + + + | STATUS OF UNIT | Presumed Transfused | | + + + + | EXPIRATION DATE | [id number] | | + + + + | BLOOD TYPE BARCODE | 6200 | | + + + + | BLOOD PRODUCT CODE | [id number] | | + + + + + + + | Specimen | Performing Laboratory | + + + | | [facility], TRANSFUSION MEDICINE [address] [facility] | | | [place] [address] | + + + PRODUCT - RED CELLS LEUKOREDUCED (09/01/2017 9:35 AM) + + + + | Component | Value | Ref Range | + + + + | PRODUCT DESCRIPTION | -1 RED BLOOD CELL ADENINE-SALINE ADDED | | | | LEUKOCYTE | | + + + + | PRODUCT UNIT # | [id number] | | + + + + | UNIT ABO | O | | + + + + | UNIT RH | POS | | + + + + | STATUS OF UNIT | Returned to Blood Bank | | + + + + | EXPIRATION DATE | [id number] | | + + + + | BLOOD TYPE BARCODE | 5100 | | + + + + | BLOOD PRODUCT CODE | [id number] | | + + + + + + + | Specimen | Performing Laboratory | + + + | | [facility], TRANSFUSION MEDICINE [address] [facility] | | | [place] [address] | + + + PRODUCT - RED CELLS LEUKOREDUCED (09/01/2017 9:35 AM) + + + + | Component | Value | Ref Range | + + + + | PRODUCT DESCRIPTION | -1 RED BLOOD CELL ADENINE-SALINE ADDED | | | | LEUKOCYTE | | + + + + | PRODUCT UNIT # | [id number] | | + + + + | UNIT ABO | O | | + + + + | UNIT RH | POS | | + + + + | STATUS OF UNIT | Returned to Blood Bank | | + + + + | EXPIRATION DATE | [id number] | | + + + + | BLOOD TYPE BARCODE | 5100 | | + + + + | BLOOD PRODUCT CODE | [id number] | | + + + + + + + | Specimen | Performing Laboratory | + + + | | [facility], TRANSFUSION MEDICINE [address] | | | [place] [address] | + + + PRODUCT - RED CELLS LEUKOREDUCED (09/01/2017 9:35 AM) + + + + | Component | Value | Ref Range | + + + + | PRODUCT DESCRIPTION | -1 RED BLOOD CELL ADENINE-SALINE ADDED | | | | LEUKOCYTE | | + + + + | PRODUCT UNIT # | [id number] | | + + + + | UNIT ABO | O | | + + + + | UNIT RH | POS | | + + + + | STATUS OF UNIT | Presumed Transfused | | + + + + | EXPIRATION DATE | [id number] | | + + + + | BLOOD TYPE BARCODE | 5100 | | + + + + | BLOOD PRODUCT CODE | [id number] | | + + + + + + + | Specimen | Performing Laboratory | + + + | | [facility], TRANSFUSION MEDICINE [address] [place] [address] | | | [place] [address] | + + + PRODUCT - RED CELLS LEUKOREDUCED (09/01/2017 9:35 AM) + + + + | Component | Value | Ref Range | + + + + | PRODUCT DESCRIPTION | -1 RED BLOOD CELL ADENINE-SALINE ADDED | | | | LEUKOCYTE | | + + + + | PRODUCT UNIT # | [id number] | | + + + + | UNIT ABO | O | | + + + + | UNIT RH | POS | | + + + + | STATUS OF UNIT | Presumed Transfused | | + + + + | EXPIRATION DATE | [id number] | | + + + + | BLOOD TYPE BARCODE | 5100 | | + + + + | BLOOD PRODUCT CODE | [id number] | | + + + + + + + | Specimen | Performing Laboratory | + + + | | [facility], TRANSFUSION MEDICINE [address] [facility] | | | [address] [address] | + + + PRODUCT - RED CELLS LEUKOREDUCED (09/01/2017 9:35 AM) + + + + | Component | Value | Ref Range | + + + + | PRODUCT DESCRIPTION | -1 RED BLOOD CELL ADENINE-SALINE ADDED | | | | LEUKOCYTE | | + + + + | PRODUCT UNIT # | [id number] | | + + + + | UNIT ABO | O | | + + + + | UNIT RH | POS | | + + + + | STATUS OF UNIT | Returned to Blood Bank | | + + + + | EXPIRATION DATE | [id number] | | + + + + | BLOOD TYPE BARCODE | 5100 | | + + + + | BLOOD PRODUCT CODE | [id number] | | + + + + + + + | Specimen | Performing Laboratory | + + + | | [facility], TRANSFUSION MEDICINE [address] | | | [place] [address] | + + + PRODUCT - RED CELLS LEUKOREDUCED (09/01/2017 9:35 AM) + + + + | Component | Value | Ref Range | + + + + | PRODUCT DESCRIPTION | -1 RED BLOOD CELL ADENINE-SALINE ADDED | | | | LEUKOCYTE | | + + + + | PRODUCT UNIT # | [id number] | | + + + + | UNIT ABO | O | | + + + + | UNIT RH | POS | | + + + + | STATUS OF UNIT | Presumed Transfused | | + + + + | EXPIRATION DATE | [id number] | | + + + + | BLOOD TYPE BARCODE | 5100 | | + + + + | BLOOD PRODUCT CODE | [id number] | | + + + + + + + | Specimen | Performing Laboratory | + + + | | [facility], TRANSFUSION MEDICINE [address] [facility] | | | [place] [address] | + + + CBC (HEMOGRAM) ONLY [...] | + + + | Blood | [facility], [address] [place] [address] | | | [place] [address] | + + + RENAL FUNCTION SET [...] | >60 | >60 mL/min | | ESTONIAN | | | + + + + | EGFR NON | >60 | >60 mL/min | | -ESTONIAN | | | + + + + [...] | + + + | Blood | [facility], [facility] [place] [address] | | | [place] [address] | + + + + + | [...] | | ------ CBC (HEMOGRAM) | | ONLY[[id number]] Abnormal Final | | result Please view results for these tests on the | | individual orders. | + + LACTATE (09/01/2017 9:35 AM) + +-------+ + | Component | Value | Ref Range | + +-------+ + | LACTATE | 2.5 | mmol/L | + +-------+ + + + + | Specimen | Performing Laboratory | + + + | Blood | [facility], CORE [address] | | | [place] [address] | + + + + + | [...] + | Blood | [facility]S [address] | | | [place] [address] | + + + X-RAY PORTABLE CHEST 1 VIEW (09/01/2017 9:18 AM) + + + | Specimen | Performing Laboratory | + + + | | [facility] VOICE RECOGNITION | + + + + + | Narrative | + + | EXAM: FL CHEST 1 VIEW HISTORY: Intubated COMPARISON: 08/31/17 [...] Interface - 09/02/2017 1:23 PM PDT EXAM: FL CHEST 1 | | VIEW HISTORY: IntubatedCOMPARISON: [...] Note | + + | 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, AgentPair Res In Interface - 09/01/2017 1:40 PM [...] + + | PRODUCT UNIT # | [id number] | | + + + + | UNIT ABO | O | | + + + + | UNIT RH | POS | | + + + + | STATUS OF UNIT | Presumed Transfused | | + + + + | EXPIRATION DATE | [id number] | | + + + + | BLOOD TYPE BARCODE | 5100 | | + + + + | BLOOD PRODUCT CODE | [id number] | | + + + + + + + | Specimen | Performing Laboratory | + + + | | [facility], TRANSFUSION MEDICINE [address] | | | [address] [address] | + + + PRODUCT - RED CELLS LEUKOREDUCED (09/01/2017 9:08 AM) + + + + | Component | Value | Ref Range | + + + + | PRODUCT DESCRIPTION | -1 RED BLOOD CELL ADENINE-SALINE ADDED | | | | LEUKOCYTE | | + + + + | PRODUCT UNIT # | [id number] | | + + + + | UNIT ABO | O | | + + + + | UNIT RH | POS | | + + + + | STATUS OF UNIT | Presumed Transfused | | + + + + | EXPIRATION DATE | [id number] | | + + + + | BLOOD TYPE BARCODE | 5100 | | + + + + | BLOOD PRODUCT CODE | [id number] | | + + + + + + + | Specimen | Performing Laboratory | + + + | | [facility], TRANSFUSION MEDICINE [address] [facility] | | | [place] [address] | + + + PRODUCT - RED CELLS LEUKOREDUCED (09/01/2017 9:08 AM) + + + + | Component | Value | Ref Range | + + + + | PRODUCT DESCRIPTION | -1 RED BLOOD CELL ADENINE-SALINE ADDED | | | | LEUKOCYTE | | + + + + | PRODUCT UNIT # | [id number] | | + + + + | UNIT ABO | O | | + + + + | UNIT RH | POS | | + + + + | STATUS OF UNIT | Presumed Transfused | | + + + + | EXPIRATION DATE | [id number] | | + + + + | BLOOD TYPE BARCODE | 5100 | | + + + + | BLOOD PRODUCT CODE | [id number] | | + + + + + + + | Specimen | Performing Laboratory | + + + | | [facility], TRANSFUSION MEDICINE [address] [place] [address] | | | [address] [address] | + + + PRODUCT - RED CELLS LEUKOREDUCED (09/01/2017 9:08 AM) + + + + | Component | Value | Ref Range | + + + + | PRODUCT DESCRIPTION | -1 RED BLOOD CELL ADENINE-SALINE ADDED | | | | LEUKOCYTE | | + + + + | PRODUCT UNIT # | [id number] | | + + + + | UNIT ABO | O | | + + + + | UNIT RH | POS | | + + + + | STATUS OF UNIT | Presumed Transfused | | + + + + | EXPIRATION DATE | [id number] | | + + + + | BLOOD TYPE BARCODE | 5100 | | + + + + | BLOOD PRODUCT CODE | [id number] | | + + + + + + + | Specimen | Performing Laboratory | + + + | | [facility], TRANSFUSION MEDICINE [address] | | | [place] [address] | + + + PRODUCT - FRESH FROZEN PLASMA (09/01/2017 9:08 AM) + + + + | Component | Value | Ref Range | + + + + | PRODUCT DESCRIPTION | PLASMA THAWED | | + + + + | PRODUCT UNIT # | [id number] | | + + + + | UNIT ABO | B | | + + + + | UNIT RH | POS | | + + + + | STATUS OF UNIT | Presumed Transfused | | + + + + | EXPIRATION DATE | [id number] | | + + + + | BLOOD TYPE BARCODE | 7300 | | + + + + | BLOOD PRODUCT CODE | [id number] | | + + + + + + + | Specimen | Performing Laboratory | + + + | | [facility], TRANSFUSION MEDICINE [address] [facility] | | | [place] [facility] [address] | + + + PRODUCT - FRESH FROZEN PLASMA (09/01/2017 9:08 AM) + + + + | Component | Value | Ref Range | + + + + | PRODUCT DESCRIPTION | PLASMA THAWED | | + + + + | PRODUCT UNIT # | [id number] | | + + + + | UNIT ABO | B | | + + + + | UNIT RH | POS | | + + + + | STATUS OF UNIT | Presumed Transfused | | + + + + | EXPIRATION DATE | [id number] | | + + + + | BLOOD TYPE BARCODE | 7300 | | + + + + | BLOOD PRODUCT CODE | [id number] | | + + + + + + + | Specimen | Performing Laboratory | + + + | | [facility], TRANSFUSION MEDICINE [address] [facility] | | | [place] [address] | + + + PRODUCT - FRESH FROZEN PLASMA (09/01/2017 9:08 AM) + + + + | Component | Value | Ref Range | + + + + | PRODUCT DESCRIPTION | PLASMA THAWED | | + + + + | PRODUCT UNIT # | [id number] | | + + + + | UNIT ABO | B | | + + + + | UNIT RH | POS | | + + + + | STATUS OF UNIT | Presumed Transfused | | + + + + | EXPIRATION DATE | [id number] | | + + + + | BLOOD TYPE BARCODE | 7300 | | + + + + | BLOOD PRODUCT CODE | [id number] | | + + + + + + + | Specimen | Performing Laboratory | + + + | | [facility], TRANSFUSION MEDICINE [address] [facility] | | | [place] [facility] [address] | + + + PRODUCT - FRESH FROZEN PLASMA (09/01/2017 9:08 AM) + + + + | Component | Value | Ref Range | + + + + | PRODUCT DESCRIPTION | THAWED APHERESIS PLASMA | | + + + + | PRODUCT UNIT # | [id number] | | + + + + | UNIT ABO | B | | + + + + | UNIT RH | POS | | + + + + | STATUS OF UNIT | Presumed Transfused | | + + + + | EXPIRATION DATE | [id number] | | + + + + | BLOOD TYPE BARCODE | 7300 | | + + + + | BLOOD PRODUCT CODE | [id number] | | + + + + + + + | Specimen | Performing Laboratory | + + + | | [facility], TRANSFUSION MEDICINE [address] [place] [address] | | | [place] [address] | + + + CT HEAD WO CONTRAST (09/01/2017 8:42 AM) + + + | Specimen | Performing Laboratory | + + + | | [facility] VOICE RECOGNITION | + + [...] + + | PRODUCT UNIT # | [id number] | | + + + + | UNIT ABO | O | | + + + + | UNIT RH | POS | | + + + + | STATUS OF UNIT | Presumed Transfused | | + + + + | EXPIRATION DATE | [id number] | | + + + + | BLOOD TYPE BARCODE | 5100 | | + + + + | BLOOD PRODUCT CODE | [id number] | | + + + + + + + | Specimen | Performing Laboratory | + + + | | [facility], [facility] MEDICINE [address] [place] [address] | | | [place] [address] | + + + LACTATE (09/01/2017 5:29 AM) + +-------+ + | Component | Value | Ref Range | + +-------+ + | LACTATE | 1.2 | mmol/L | + +-------+ + + + + | Specimen | Performing Laboratory | + + + | Blood | [facility], CORE [address] | | | [place] [address] | + + + + + | [...] | + + + | Blood | [facility], CORE [address] | | | [place] [address] | + + + MRI SPINE CERVICAL/THORACIC WO CONTRAST (09/01/2017 3:53 AM) + + + | Specimen | Performing Laboratory | + + + | | [facility] VOICE RECOGNITION | + + [...] | | injured. Discussed with trauma ICU ncaa compliance internship by Dr. Yang at 4:38 AM. [...] interspinous ligament is injured.Discussed with trauma ICU ncaa compliance internship | | by Dr. Yang at 4:38 AM.I have personally reviewed the images and, if necessary, | | edited the report. I agree with the report as now presented. | |3. Extensive soft tissue edema extending into the cervical and upper thoracic interspinous space, suggestive of interspinous ligament is injured. | | | |Discussed with trauma ICU ncaa compliance internship by Dr. Yang at 4:38 AM. [...] | >60 | >60 mL/min | | ESTONIAN | | | + +---------+ + | EGFR NON | >60 | >60 mL/min | | -ESTONIAN | | | + +---------+ + | [...] | + + + | Blood | [facility], CORE [address] [place] [address] | | | [place] [address] | + + + + + | [...] | + + + | Blood | [facility], CORE [address] [place] [address] | | | [place] [address] | + + + + + | [...] | + + + | Blood | [facility], CORE [address] | | | [place] [address] | + + + LACTATE (09/01/2017 1:32 AM) + +-------+ + | Component | Value | Ref Range | + +-------+ + | LACTATE | 1.4 | mmol/L | + +-------+ + + + + | Specimen | Performing Laboratory | + + + | Blood | [facility], CORE [address] | | | [place] [address] | + + + + + | [...] | | ------ CBC (HEMOGRAM) | | ONLY[[id number]] Abnormal Final | | result Please view [...] pleural spaced was performed. A 32 size Vincentian chest tube was placed into the | [...] | ventricles. Discussed with the trauma ICU ncaa compliance internship at 12:[address] Yang. [...] ventricles.Discussed with | | the trauma ICU ncaa compliance internship at 12:[address] Yang.I [...] | | |Discussed with the trauma ICU ncaa compliance internship at 12:[address] Yang. | | | | | |I have personally reviewed the images and, if necessary, edited the report. I agree with t he report as now presented. | + + PROCEDURE NOTE (09/01/2017 12:47 AM) + + + | Specimen | Performing Laboratory | + + + | | [facility] [place] OF [facility] TESTS [address] | | | [place] [address] | + + + + + | [...] | + + + | Blood | [facility], CORE [address] | | | [place] [address] | + + + LACTATE (08/31/2017 9:19 PM) + +-------+ + | Component | Value | Ref Range | + +-------+ + | LACTATE | 2.2 | mmol/L | + +-------+ + + + + | Specimen | Performing Laboratory | + + + | Blood | [facility], CORE [address] [place] [address] [place] | | | [place] [address] | + + + + + | [...] Account, Kostas Res In Interface - 09/01/2017 1:50 PM [...] Laboratory | + + + | | [facility] VOICE RECOGNITION | + + [...] Laboratory | + + + | | [facility] VOICE RECOGNITION | + + [...] Laboratory | + + + | | [facility] VOICE RECOGNITION | + + [...] | + + + | Blood | [facility], CORE [address] | | | [place] [address] | + + + X-RAY PORTABLE CHEST 1 VIEW (08/31/2017 7:07 PM) + + + | Specimen | Performing Laboratory | + + + | | [facility] VOICE RECOGNITION | + + + + + | Narrative | + + | STUDY: FL CHEST 1 VIEW HISTORY: Trauma COMPARISON: CT [...] Interface - 09/01/2017 1:44 PM PDT STUDY: FL CHEST 1 | | VIEWHISTORY: TraumaCOMPARISON: CT [...] | + + + | Blood | [facility], CORE [address] | | | [place] [address] | + + + CTA NECK W CONTRAST (08/31/2017 6:27 PM) + + + | Specimen | Performing Laboratory | + + + | | [facility] VOICE RECOGNITION | + + + [...] Note | + + | 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, AgentPair Res In Interface - 08/31/2017 8:22 PM [...] Laboratory | + + + | | [facility] VOICE RECOGNITION | + + [...] Account, Kostas Res In Interface - 09/01/2017 10:12 AM [...] rib, nondisplaced-Left | | 1st rib fracture, ckjbpksasdti-Tix-kjuhvfhmm left lateral 8th rib fracture-T12 fracture | [...] Laboratory | + + + | | [facility] VOICE RECOGNITION | + + [...] | + + + | Blood | [facility], TRANSFUSION MEDICINE [address] | | | [address] [address] | + + + ABO & RH [...] | + + + | Blood | [facility], TRANSFUSION MEDICINE [address] [facility] | | | [address] [address] | + + + TYPE AND SCREEN [...] | ------ ABO & RH | | TYPE[[id number]] F | | inal result ANTIBODY | | SCREEN[[id number]] Fin | | al result Please view [...] | + + + | Blood | [facility], TRANSFUSION MEDICINE [address] [facility] | | | [address] [address] | + + + THROMBELASTOGRAPH, POC (08/31/2017 [...] | + + + | Blood | [facility], POINT OF [facility] TEST[facility] [address] | | | [place] [address] | + + + + + | [...] | + + + | Blood | [facility] POINT OF CARE TESTS [address] | | | [place] [address] | + + + + + | [...] [address] | | | [place] [address] | + + + ED BG-LAC,POC (08/31/2017 [...] TESTS [address] | | | [place] [address] | + + + PRODUCT - RED CELLS LEUKOREDUCED (08/31/2017 5:06 PM) + + + + | Component | Value | Ref Range | + + + + | PRODUCT DESCRIPTION | -1 RED BLOOD CELL ADENINE-SALINE ADDED | | | | LEUKOCYTE | | + + + + | PRODUCT UNIT # | [id number] | | + + + + | UNIT ABO | O | | + + + + | UNIT RH | POS | | + + + + | STATUS OF UNIT | Returned to Blood Bank | | + + + + | EXPIRATION DATE | [id number] | | + + + + | BLOOD TYPE BARCODE | 5100 | | + + + + | BLOOD PRODUCT CODE | [id number] | | + + + + + + + | Specimen | Performing Laboratory | + + + | | [facility], TRANSFUSION MEDICINE [address] [facility] | | | [address] [address] | + + + PRODUCT - RED CELLS LEUKOREDUCED (08/31/2017 5:06 PM) + + + + | Component | Value | Ref Range | + + + + | PRODUCT DESCRIPTION | -1 RED BLOOD CELL ADENINE-SALINE ADDED | | | | LEUKOCYTE | | + + + + | PRODUCT UNIT # | [id number] | | + + + + | UNIT ABO | O | | + + + + | UNIT RH | POS | | + + + + | STATUS OF UNIT | Presumed Transfused | | + + + + | EXPIRATION DATE | [id number] | | + + + + | BLOOD TYPE BARCODE | 5100 | | + + + + | BLOOD PRODUCT CODE | [id number] | | + + + + + + + | Specimen | Performing Laboratory | + + + | | [facility], TRANSFUSION MEDICINE [address] | | | [place] [address] | + + + PRODUCT - RED CELLS LEUKOREDUCED (08/31/2017 5:06 PM) + + + + | Component | Value | Ref Range | + + + + | PRODUCT DESCRIPTION | -1 RED BLOOD CELL ADENINE-SALINE ADDED | | | | LEUKOCYTE | | + + + + | PRODUCT UNIT # | [id number] | | + + + + | UNIT ABO | O | | + + + + | UNIT RH | POS | | + + + + | STATUS OF UNIT | Returned to Blood Bank | | + + + + | EXPIRATION DATE | [id number] | | + + + + | BLOOD TYPE BARCODE | 5100 | | + + + + | BLOOD PRODUCT CODE | [id number] | | + + + + + + + | Specimen | Performing Laboratory | + + + | | [facility], TRANSFUSION MEDICINE [address] [facility] | | | [place] [address] | + + + PRODUCT - RED CELLS LEUKOREDUCED (08/31/2017 5:06 PM) + + + + | Component | Value | Ref Range | + + + + | PRODUCT DESCRIPTION | -1 RED BLOOD CELL ADENINE-SALINE ADDED | | | | LEUKOCYTE | | + + + + | PRODUCT UNIT # | [id number] | | + + + + | UNIT ABO | O | | + + + + | UNIT RH | POS | | + + + + | STATUS OF UNIT | Presumed Transfused | | + + + + | EXPIRATION DATE | [id number] | | + + + + | BLOOD TYPE BARCODE | 5100 | | + + + + | BLOOD PRODUCT CODE | [id number] | | + + + + + + + | Specimen | Performing Laboratory | + + + | | [facility], TRANSFUSION MEDICINE [address] | | | [place] [facility] [address] | + + + PRODUCT - FRESH FROZEN PLASMA (08/31/2017 5:05 PM) + + + + | Component | Value | Ref Range | + + + + | PRODUCT DESCRIPTION | LIQUID PLASMA, IRRADIATED | | + + + + | PRODUCT UNIT # | [id number] | | + + + + | UNIT ABO | A | | + + + + | UNIT RH | POS | | + + + + | STATUS OF UNIT | Presumed Transfused | | + + + + | EXPIRATION DATE | [id number] | | + + + + | BLOOD TYPE BARCODE | 6200 | | + + + + | BLOOD PRODUCT CODE | [id number] | | + + + + + + + | Specimen | Performing Laboratory | + + + | | [facility], TRANSFUSION MEDICINE [address] | | | [place] [address] | + + + PRODUCT - FRESH FROZEN PLASMA (08/31/2017 5:05 PM) + + + + | Component | Value | Ref Range | + + + + | PRODUCT DESCRIPTION | LIQUID PLASMA, IRRADIATED | | + + + + | PRODUCT UNIT # | [id number] | | + + + + | UNIT ABO | A | | + + + + | UNIT RH | POS | | + + + + | STATUS OF UNIT | Presumed Transfused | | + + + + | EXPIRATION DATE | [id number] | | + + + + | BLOOD TYPE BARCODE | 6200 | | + + + + | BLOOD PRODUCT CODE | [id number] | | + + + + + + + | Specimen | Performing Laboratory | + + + | | [facility], TRANSFUSION MEDICINE [address] [facility] | | | [place] [address] | + + + PRODUCT - FRESH FROZEN PLASMA (08/31/2017 5:05 PM) + + + + | Component | Value | Ref Range | + + + + | PRODUCT DESCRIPTION | LIQUID PLASMA, IRRADIATED | | + + + + | PRODUCT UNIT # | [id number] | | + + + + | UNIT ABO | A | | + + + + | UNIT RH | POS | | + + + + | STATUS OF UNIT | Returned to Blood Bank | | + + + + | EXPIRATION DATE | [id number] | | + + + + | BLOOD TYPE BARCODE | 6200 | | + + + + | BLOOD PRODUCT CODE | [id number] | | + + + + + + + | Specimen | Performing Laboratory | + + + | | [facility], TRANSFUSION MEDICINE [address] [facility] | | | [place] [address] | + + + PRODUCT - FRESH FROZEN PLASMA (08/31/2017 5:05 PM) + + + + | Component | Value | Ref Range | + + + + | PRODUCT DESCRIPTION | LIQUID PLASMA, IRRADIATED | | + + + + | PRODUCT UNIT # | [id number] | | + + + + | UNIT ABO | A | | + + + + | UNIT RH | POS | | + + + + | STATUS OF UNIT | Returned to Blood Bank | | + + + + | EXPIRATION DATE | [id number] | | + + + + | BLOOD TYPE BARCODE | 6200 | | + + + + | BLOOD PRODUCT CODE | [id number] | | + + + + + + + | Specimen | Performing Laboratory | + + + | | [facility], TRANSFUSION MEDICINE [address] [facility] | | | [place] [address] | + + + CBC (HEMOGRAM) ONLY [...] | + + + | Blood | [facility], CORE [address] | | | [place] [address] | + + + BASIC METABOLIC SET [...] | >60 | >60 mL/min | | ESTONIAN | | | + +---------+ + | EGFR NON | >60 | >60 mL/min | | -ESTONIAN | | | + +---------+ + | [...] | + + + | Blood | [facility] [address] | | | [place] [address] | + + + + + | [...] | + + + | Blood | [facility], CORE [address] | | | [place] [address] | + + + + + | [...] | | ------ CBC (HEMOGRAM) | | ONLY[[id number]] Abnormal Final | | result Please view [...] | + + + | Blood | [facility], CORE [address] [place] [address] | | | [place] [address] | + + + PHOSPHORUS, PLASMA (08/31/2017 4:50 PM) + +-------+ + | Component | Value | Ref Range | + +-------+ + | PHOSPHORUS, PLASMA | 4.0 | 2.4 - 4.7 mg/dL | | (LAB) | | | + +-------+ + + + + | Specimen | Performing Laboratory | + + + | Blood | [facility], CORE [address] [place] [address] | | | [place], [place] [address] | + + + MAGNESIUM, PLASMA (08/31/2017 4:50 PM) + +---------+ + | Component | Value | Ref Range | + +---------+ + | MAGNESIUM,PLASMA | 1.5 (L) | 1.6 - 2.6 mg/dL | + +---------+ + + + + | Specimen | Performing Laboratory | + + + | Blood | [facility], CORE [address] | | | [place], [place] [address] | + + + + + | [...]
--- OUTSIDE RECORDS SUMMARY | ~2017-12-10 | XMS | Clinical Summary ---
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 Sherine | | | Torsten | | | , | | | AGACNPDisch | | | arging | | | Surgeon : | | | Magali | | | Curt, | | | MDOHSUDivis | | | ion of | | | Acute Care | | | Surgery/Cri | | | tical | | | [id number] | | | [address] | | | [address] | | | [place] | | | [place] | | | [place] [address] | | | | | | [phone] | | | 0 | +---+ + from Last 3 Months Social History + +-------+ +--------+------+ | Tobacco [...] AM PDT | + + + + Plan of Treatment + + + + + | Health Maintenance | Due Date | Last Done | Comments | + + + + + | INFLUENZA VACCINE | | | | | (FLU SHOT) | 8 | | | + + + + + Implants + +------+--------+ +--------+--------+--------+ | Implanted | Type | Area | Manufacture | Device | Expira | Model | | | | | r | | tion | / | | | | | | Identi | Date | Serial | | | | | | fier | | / Lot | + +------+--------+ +--------+--------+--------+ | Depuy Synthes Ti Matrixneuro | | Right: | | | 04/28/ | 04.503 | | Preformed MeshImplanted: Qty: | | Head | | | 6 | .156S | | 1 on 11/05/2017 by Dayami, | | | | | | / | | MD Magdiel | | | | | | /[id number] | | | | | | | | 43 | + +------+--------+ +--------+--------+--------+ | Screw Bone 4mm 1.55mm 2.55mm | | Right: | SYNTHES [facility] | | | 04.503 | | Matrixneuro | | Head | | | | .104.0 | | Craniomaxillofacial Titanium | | | | | | 5 / / | | Self Drill Nonsterile - | | | | | | | | [id number]: Qty: 11 | | | | | | | | on 11/05/2017 by Dayami, | | | | | | | | MD Magdiel | | | | | | | + +------+--------+ +--------+--------+--------+ + +------+--------+ +--------+--------+--------+ | Explanted | Type | Area | Manufacture | Device | Expira | Model | | | | | r | | tion | / | | | | | | Identi | Date | Serial | | | | | | fier | | / Lot | + +------+--------+ +--------+--------+--------+ | Screw Bone 4mm 1.55mm 2.55mm | | Right: | SYNTHES [place] | | | 04.503 | | Matrixneuro | | Head | | | | .104.0 | | Craniomaxillofacial Titanium | | | | | | 5 / / | | Self Drill Nonsterile - | | | | | | | | [id number]: Qty: | | | | | | | | 1Explanted: Qty: 1 on | | | | | | | | 11/05/2017 | | | | | | | + +------+--------+ +--------+--------+--------+ Procedures + +--------+ + + + | [...] | | + +--------+ + + + from Last 3 Months Results 12 LEAD ECG (12/05/2017 3:27 PM)Only the most recent of 52 results within the time period is included. + + + + | Component | [...] + + + | | [facility] [address] [place] [address] | | | [place] [address] | + + + RENAL FUNCTION SET (NA,K,CL,CO2,BUN,CREAT,GLUC,CA,PHOS,ALB ) (12/05/2017 4:46 AM)Only the most recent of 66 results within the time period is included. + + + + | Component | [...] | >60 | >60 mL/min | | MALTESE | | | + + + + | EGFR NON | >60 | >60 mL/min | | -MALTESE | | | + + + + [...] | + + + | Blood | [facility] LABORATORY SERVICES, CORE [address] | | | [place] [address] | + + + + + | [...] | + + MAGNESIUM, PLASMA (12/05/2017 4:46 AM)Only the most recent of 65 results within the time rei [place] is included. + +-------+ + | Component | Value | Ref Range | + +-------+ + | MAGNESIUM,PLASMA | 2.2 | 1.6 - 2.6 mg/dL | + +-------+ + + + + | Specimen | Performing Laboratory | + + + | Blood | [facility] LABORATORY SERVICES, CORE [address] [facility] | | | [place], [place] [address] | + + + + + | Narrative | + + | Reference range change effective 8/15/17. | + + LIVER SET (AST,ALT,BILI TOTAL,BILI DIRECT,ALK PHOS,ALB,PROT TOTAL) (12/04/2017 8:51 AM)Onl y the most recent of 7 results within the time period is included. + +---------+ + | Component | Value [...] | + + + | Blood | [facility] LABORATORY SERVICES, CORE [address] [facility] | | | [place] [address] | + + + VAS LAB VENOUS DUPLEX LOWER EXTREMITY BILAT COMP (12/03/2017 11:26 AM)Only the most recent of 13 results within the time period is included. + + + | Specimen | Performing Laboratory | + + + | | [facility] RADIOLOGY VAS US | + + + [...] Note | + + | 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, Dynamics Direct Res In Interface - 12/03/2017 4:56 PM [...] + + CBC (HEMOGRAM) ONLY (12/03/2017 8:02 AM)Only the most recent of 44 results within the time period is included. + + + + | Component | [...] | + + + | Blood | [facility] LABORATORY [facility] [address] [facility] [address] | | | [place] [address] | + + + + + | Narrative | + + | New reference ranges for MCV, MCHC, PLT, IG% and IG# effective 09/05/2017 | + + CBC ONLY (12/03/2017 8:02 AM)Only the most recent of 44 results within the time period is included. + + + | Specimen | Performing Laboratory | + + + | Blood | | + + + + + | Narrative | + + | The following orders were created for panel order CBC ONLY. | | Procedure | | Abnormality Status | | --------- | | ------ CBC (HEMOGRAM) | | ONLY[[id number]] Abnormal Final | | result Please view [...] MD 12/03/2017 8:58 AM | + + PREALBUMIN (12/02/2017 5:35 AM)Only the most recent of 7 results within the time period is included. + +-------+ + | Component | Value | Ref Range | + +-------+ + | PREALBUMIN | 24.1 | 17.0 - 42.0 mg/dL | + +-------+ + + + + | Specimen | Performing Laboratory | + + + | Blood | [facility] [place] [address] [place], [place] | | | [address] | + + + C-REACTIVE PROTEIN (12/02/2017 5:35 AM)Only the most recent of 7 results within the time [place]i [place] is included. + +-------+ + | Component | Value | Ref Range | + +-------+ + | C-REACTIVE PROTEIN | 6.6 | <10.0 mg/L | + +-------+ + + + + | Specimen | Performing Laboratory | + + + | Blood | [facility] LABORATORY SERVICES, CORE [address] [facility] | | | [place] [address] | + + + + + | Narrative | + + | New method, new reference range and new reporting units as of 09/30/2013. | + + CALCIUM, IONIZED, WHOLE BLOOD (12/02/2017 5:35 AM)Only the most recent of 7 results within the time period is included. + +-------+ + | Component | Value [...] | + + + | Blood | [facility] LABORATORY [facility], CORE [address] [facility] | | | [place], [place] [address] | + + + TRIGLYCERIDES, PLASMA (12/02/2017 5:35 AM)Only the most recent of 7 results within the period is included. + +-------+ + | Component | Value | Ref Range | + +-------+ + | TRIGLYCERIDES | 101 | <150 mg/dL | + +-------+ + + + + | Specimen | Performing Laboratory | + + + | Blood | [facility] LABORATORY SERVICES, CORE [address] [facility] | | | [place] [address] | + + + + + | Narrative | + + | Triglyceride Reference Range: Normal: <150 mg/dL | | Borderline High: 150-199 mg/dL High: 200-499 mg/dL | | Very High: >=500 mg/dL | + + X-RAY SPINE CERVICAL 3 VIEWS [...] MD 11/21/2017 2:27 PM | + + PROTEIN ELECTROPHORESIS, URINE, WITH [...] | + + + | Urine | [facility] [address] [place], [place] | | | [address] | + + + CT CHEST, ABDOMEN AND PELVIS W IV CONTRAST (11/11/2017 6:57 PM)Only the most recent of 2 r esults within the time period is included. + + + | Specimen | Performing Laboratory | + + + | | VASU RADIOLOGY VOICE RECOGNITION 2 | + + [...] | + + + | Blood | [facility] LABORATORY [facility], CORE [address] [facility] | | | [place] [address] | + + + PROTEIN ELECTROPHORESIS, SERUM, [...] | | | | By: Abel SILVER- [place], Med Lorraine | | + + + + + + + | Specimen | Performing Laboratory | + + + | Blood | [facility] [id number] [place] [address] | | | [address] | + + + CT HEAD WO CONTRAST (11/08/2017 2:14 PM)Only the most recent of 8 results within the time period is included. + + + | Specimen | Performing [...] MD 11/08/2017 2:19 PM | + + PROCEDURE NOTE (11/06/2017 9:47 PM)Only the most recent of 8 results within the time perio d is included.PRODUCT - RED CELLS LEUKOREDUCED (11/06/2017 8:03 AM)Only the most recent of 6 results within the time period is included. + + + + | Component | Value | Ref Range | + + + + | PRODUCT DESCRIPTION | -1 RED BLOOD CELL ADENINE-SALINE ADDED | | | | LEUKOCYTE | | + + + + | PRODUCT UNIT # | [id number] | | + + + + | UNIT ABO | O | | + + + + | UNIT RH | POS | | + + + + | STATUS OF UNIT | Returned to Blood Bank | | + + + + | EXPIRATION DATE | [id number] | | + + + + | BLOOD TYPE BARCODE | 5100 | | + + + + | BLOOD PRODUCT CODE | [id number] | | + + + + + + + | Specimen | Performing Laboratory | + + + | | [facility] LABORATORY SERVICES, TRANSFUSION MEDICINE [address] [facility] | | | [place] [address] | + + + OPERATION RECORD (11/06/2017 12:27 AM) + + | Procedure Note | + + | Magdiel Stock MD - 11/06/2017 12:27 AM PDT Date of Service: 11/05/2017 Attending | | Surgeon: Magdiel Stock MD Net Mobile Developer(s): Rg Aiken MD | | Preoperative Diagnoses: [...] was placed in a horseshoe head of english with his C-collar still | | attached [...] the incision down to the cranium. Once telida | | skull was reached circumferentially around the prior incision, a #1 [place] was used | | to subperiosteally dissect [...] note for this encounter.Sonal Nunez, | | [facility] [id number] [place], [place] | | [phone] Orina, MDJB/MODLDD: 11/05/2017 20:38:01DT: 11/06/2017 | | 00:27:33Job #: [id number] | |HATTIE/MODL | | | | | | /[id number] | + + CAPILLARY BLOOD GLUCOSE (NO CHG), POC (11/05/2017 7:11 PM)Only the most recent of 82 resul ts within the time period is included. + +---------+ + | Component | Value | Ref Range | + +---------+ + | BLOOD GLUCOSE, POC | 129 (H) | 70 - 99 mg/dL | + +---------+ + + + + | Specimen | Performing Laboratory | + + + | | [facility], POINT OF CARE TESTS [address] | | | [place] [address] | + + + [place] ISLAS (11/05/2017 4:31 PM)Only the most recent of 4 results within the time period is in cluded. + + | Narrative | + + Prabhakar Victor CRNA 11/05/2017 4:36 PM Procedure Reason [...] nose in pre-op condition. | + + COAGULOPATHY PANEL (INR,APTT,FIBRINOGEN) (11/05/2017 6:16 AM)Only the most recent of 3 res ults within the time period is included. + + + + | Component | [...] | + + + | Blood | [facility] LABORATORY SERVICES, CORE [address] [facility] [address] | | | [place] [address] | [...] 0.35 - 0.7 U/mL | + + CARDIOLOGY (11/05/2017)Only the most recent of 2 results within the time period is included .ANTIBODY SCREEN (11/04/2017 5:11 PM)Only the most recent of 2 results within the time edil od is included. + + + + | Component | Value | Ref Range | + + + + | Antibody Screen | Negative | | + + + + + + + | Specimen | Performing Laboratory | + + + | Blood | [facility] LABORATORY SERVICES, TRANSFUSION MEDICINE [address] [facility] | | | [place] [address] | + + + TYPE AND SCREEN (11/04/2017 5:11 PM)Only the most recent of 2 results within the time edil od is included. + + + | Specimen | Performing Laboratory | + + + | Blood | | + + + + + | Narrative | + + | The following orders were created for panel order TYPE AND SCREEN. | | Procedure | | Abnormality Status | | --------- | | ------ ABO & RH | | TYPE[[id number]] F | | inal result ANTIBODY | | SCREEN[[id number]] Fin | | al result Please view results for these tests on the | | individual orders. | + + ABO & RH TYPE (11/04/2017 5:11 PM)Only the most recent of 2 results within the time period is included. + + + + | Component | Value | Ref Range | + + + + | ABO Group | O | | + + + + | Rh Type | Positive | | + + + + + + + | Specimen | Performing Laboratory | + + + | Blood | [facility] LABORATORY SERVICES, TRANSFUSION MEDICINE [address] [facility] | | | [place] [address] | + + + CT STEREOTACTIC HEAD WO CONTRAST (10/31/2017 5:58 PM) + + + | Specimen | Performing Laboratory | + + + | | [facility] RADIOLOGY VOICE RECOGNITION 2 | + + [...] These results were discussed with | | Bull of trauma on 10/31/2017 [...] MD 10/31/2017 6:09 PM | + + CT ABDOMEN AND PELVIS WO IV CONTRAST (10/27/2017 5:38 PM) + + + | Specimen | Performing Laboratory | + + + | | [facility] RADIOLOGY VOICE RECOGNITION 2 | + + [...] PORTABLE CHEST PICC LINE CHECK (10/27/2017 1:06 PM)Only the most recent of 4 results within the time period is included. + + + | Specimen | Performing Laboratory | + + + | | [facility] RADIOLOGY VOICE RECOGNITION 2 | + + + + + | Narrative | + + | EXAM: NH CHEST PICC [...] | + + PICC LINE (10/27/2017 12:27 PM)Only the most recent of 3 results within the time period is included. + + | Narrative | + + | Kamini Herrera RN 10/27/2017 1:29 PM PICC LINE Performed by: DEISI, | | KAMINI Authorized by: CHAZ MUNOZ PICC/Midline Insertion Procedure Note | | Indications:Antibiotics and TPN Procedure location: Unit:13 Room: 4 Providers: | | Attending name: [...] | | verifies correct patient, procedure, equipment, desktop support engineer and site/side marked as | [...] Brachial | | vein. Catheter lot number: [id number] with a length of 55 cm was [...] + VAT: PICC INSERTION W/US (10/27/2017 12:21 PM)Only the most recent of 3 results within the time period is included. + + | Narrative | + + | See procedure note. | + + BASIC METABOLIC SET (NA, K, CL, TCO2, BUN, CR, GLU, CA) (10/25/2017 12:40 PM)Only the most recent of 5 results within the time period is included. + + + + | Component | [...] | >60 | >60 mL/min | | MALTESE | | | + + + + | EGFR NON | >60 | >60 mL/min | | -MALTESE | | | + + + + [...] | + + + | Blood | [facility] LABORATORY SERVICES, CORE [address] [facility] | | | [place] [address] | + + + + + | [...] | | muscle-wasting diseses | + + ALT, PLASMA (10/24/2017 4:45 PM) + +-------+ + | Component | Value | Ref Range | + +-------+ + | ALT (SGPT) | 20 | <=60 U/L | + +-------+ + + + + | Specimen | Performing Laboratory | + + + | Blood | [facility] LABORATORY SERVICES, CORE [address] [facility] | | | [place] [address] | + + + PHOSPHORUS, PLASMA (10/24/2017 4:45 PM) + +-------+ + | Component | Value | Ref Range | + +-------+ + | PHOSPHORUS, PLASMA | 3.2 | 2.4 - 4.7 mg/dL | | (LAB) | | | + +-------+ + + + + | Specimen | Performing Laboratory | + + + | Blood | [facility] LABORATORY SERVICES, CORE [address] [facility] | | | [place] [address] | + + + AST, PLASMA (10/24/2017 4:45 PM) + +---------+ + | Component | Value | Ref Range | + +---------+ + | AST(SGOT) | 14 | <=41 U/L | + +---------+ + | AST CMNT | No Hemo | | + +---------+ + + + + | Specimen | Performing Laboratory | + + + | Blood | [facility] LABORATORY SERVICES, CORE [address] [facility] | | | [facility] [address] | + + + ALBUMIN, PLASMA (10/24/2017 4:45 PM) + +---------+ + | Component | Value | Ref Range | + +---------+ + | ALBUMIN, PLASMA | 2.6 (L) | 3.5 - 4.7 g/dL | | (LAB) | | | + +---------+ + + + + | Specimen | Performing Laboratory | + + + | Blood | [facility] LABORATORY SERVICES, CORE [address] [place] [address] | | | [place] [address] | + + + BILIRUBIN DIRECT (10/24/2017 4:45 PM) + +---------+ + | Component | Value | Ref Range | + +---------+ + | BILIRUBIN DIRECT | 0.1 | 0.0 - 0.3 mg/dL | + +---------+ + | BRET SHIPLEY | No Hemo | | + +---------+ + + + + | Specimen | Performing Laboratory | + + + | Blood | [facility] LABORATORY SERVICES, CORE [address] [place] [address] | | | [place], [place] [address] | + + + ALKALINE PHOSPHATASE, PLASMA (10/24/2017 4:45 PM) + +---------+ + | Component | Value | Ref Range | + +---------+ + | ALK PHOS | 200 (H) | 56 - 119 U/L | + +---------+ + + + + | Specimen | Performing Laboratory | + + + | Blood | [facility] LABORATORY SERVICES, CORE [address] [facility] | | | [place] [address] | + + + BILIRUBIN TOTAL (10/24/2017 [...] | + + + | Blood | [facility] LABORATORY SERVICES, CORE [address] [place] [address] | | | [place] [address] | + + + X-RAY PORTABLE CHEST 1 VIEW (10/24/2017 3:26 PM)Only the most recent of 6 results within t he time period is included. + + + | Specimen | Performing Laboratory | + + + | | [facility] RADIOLOGY VOICE RECOGNITION 2 | + + + + + | Narrative | + + | EXAM: NH CHEST 1 VIEW HISTORY: PICC placed-pt ready. COMPARISON: October 12 | | 2017 FINDINGS: The right sided PICC terminates within [...] MD 10/24/2017 3:40 PM | + + CBC AND AUTO DIFF (10/23/2017 [...] | + + + | Blood | [facility] LABORATORY SERVICES, CORE [address] [place] [address] | | | [place] [address] | + + + + + | [...] in the neutrophil count. | + + CBC, WITH DIFFERENTIAL (10/23/2017 [...] | ------ CBC AND AUTO | | DIFF[[id number]] Abnormal Final | | result Please view results for these tests on the | | individual orders. | + + IR GASTROSTOMY TUBE EXCHANGE (10/22/2017 2:42 PM) + + + | Specimen | Performing Laboratory | + + + | | [facility] RADIOLOGY VOICE RECOGNITION | + + + + + | Narrative | + + | Procedure: Gastrostomy tube exchange Primary attending occupational psychologist: Shade | | Bryn Goodwin Preoperative diagnosis: Malfunctioning Gastrostomy tube | | Postoperative diagnosis: Same Operations: Operation 1. Removal of existing | | Gastrostomy tube over a guide wire Operation 2. Placement of 24 Mosotho GABRIEL | | gastrostomy over guide wire [...] | | glide wire the new 24 Mosotho gastrostomy tube was inserted. The position of [...] Procedure: | | Gastrostomy tube exchangePrimary attending occupational psychologist: Shade Goodwin | | BrynPreoperative diagnosis: Malfunctioning Gastrostomy tubePostoperative diagnosis: | | SameOperations:Operation 1. Removal of existing Gastrostomy tube over a guide | | wireOperation 2. Placement of 24 Mosotho GABRIEL gastrostomy over guide wireNo sedation was [...] glide wire the | | new 24 Mosotho gastrostomy tube was inserted. The position of [...] stiff g lide wire the new 24 Mosotho | |gastrostomy tube was inserted. The position [...] as now presented. | + + CT ABDOMEN AND PELVIS W IV CONTRAST (10/22/2017 3:56 AM)Only the most recent of 2 results within the time period is included. + + + | Specimen | Performing Laboratory | + + + | | [facility] RADIOLOGY VOICE RECOGNITION 2 | + + [...] tube balloon. Significant results were discussed with Dr. | | Ilan on 10/22/2017 4:30 AM [...] MD 10/22/2017 4:15 AM | + + OPERATION RECORD (10/12/2017 8:50 PM) + + | Procedure Note | + + | Pilar Cotto MD - 10/12/2017 8:50 PM PDT Date of Service: 10/12/2017 | | Attending Surgeon: Chaz Munoz MD Net Mobile Developer(s): Randell Dixon M.D., | | fellow. George [...] tube into the | | stomach.Indications: Mr. Arteimo Temple is a 67-year-old gentleman who has [...] saline. We then | | placed a 19-Mosotho drain deep into the abscess cavity, tracking [...] the case. Pilar Cotto, | | MDMdhruv Munoz MDKMW/MODLDD: 10/12/2017 19:50:06DT: 10/12/2017 20:50:54Job #: | | [id number] | + + VANCOMYCIN, TROUGH (10/12/2017 2:48 AM) + +---------+ + | Component | Value | Ref Range | + +---------+ + | VANCOMYCIN, TROUGH | 7.2 (L) | 10.0 - 20.0 ug/mL | + +---------+ + + + + | Specimen | Performing Laboratory | + + + | Blood | [facility] LABORATORY SERVICES, CORE [address] [facility] | | | [place] [address] | + + + + + | Narrative | + + | Please draw trough just prior to administering the 0300 dose on 10/12, thanks! | + + OPERATION RECORD (10/10/2017 12:40 PM) + + | Procedure Note | + + | Magdiel Stock MD - 10/10/2017 12:40 PM PDT Date of Service: 10/10/2017 Attending | | Surgeon: Magdiel Stock MD Net Mobile Developer(s): Cecilia Hernandez, | | . Preoperative Diagnoses: [...] This is a 67-year-old male. Please see [facility] for full details. He | | [...] the note for this encounter.Sonal Nunez MDOHSU [id number] | | [place] [phone] Orina, MDFA/MODLDD: | | 10/10/2017 11:52:15DT: 10/10/2017 12:40:41Job #: [id number] | | | | | |I was present for the critical portions of the procedure as described in the note for this encounter. | | | |Magdiel Stock MD | | | |Magdiel Stock MD | |[facility] [address]C | |[address] | |[facility] | |[place] [address] | |[phone] | | | | | |Magdiel Stock MD | |FABaljeet/MODL | | | | | | /[id number] | + + X-RAY ABDOMEN 1 VIEW (10/10/2017 12:17 PM)Only the most recent of 2 results within the time period is included. + + | Narrative | + + | - At the time of the study, no professional interpretation was requested. - | + + X-RAY FLUOROSCOPY IN [place] <= 1 HOUR (10/10/2017 12:16 PM) + + | Narrative | + + | - At the time of the study, no professional interpretation was requested. - | + + CULTURE, TISSUE (10/10/2017 9:03 AM)Only the most recent of 3 results within the time edil od is included. + + + + | Component | Value | Ref Range | + + + + | CULTURE RESULT | Pseudomonas aeruginosa (A) | | + + + + + + + | Specimen | Performing Laboratory | + + + | Tissue - Head | [facility] [place] [address] [place], [place] | | | [address] | + + + + + | [...] EXCEPT BLOOD, SKIN, HAIR, NAIL (10/10/2017 9:00 AM)Only the most recent of 5 results within the time period is included. + + + | Specimen | Performing Laboratory | + + + | Swab - Head | [facility] [address] [place], [place] | | | [address] | + + + + + | Narrative | + + | Culture Report: No fungus isolated at 3 weeks. | + + CULTURE, WOUND DEEP W/ ANAEROBE (10/10/2017 9:00 AM)Only the most recent of 5 results with in the time period is included. + + + + | Component | Value | Ref Range | + + + + | CULTURE RESULT | Pseudomonas aeruginosa (A) | | + + + + + + + | Specimen | Performing Laboratory | + + + | Swab - Head | [facility] [id number] [place] [address] | | | [address] | + + + + + | Narrative | + + | Culture Report: 1+ Pseudomonas aeruginosa Refer to culture collected 10/10/17 at | | 0903 for susceptibilities No anaerobic organisms isolated Gram Stain: No | | squamous epithelial cells Many polymorphonuclear cells No organisms seen | + + CULTURE, AFB (ALL SPEC TYPES EXCEPT BLOOD) (10/10/2017 9:00 AM)Only the most recent of 5 r esults within the time period is included. + + + | Specimen | Performing Laboratory | + + + | Swab - Head | [facility] [address] [place], [place] | | | [address] | + + + + + | Narrative | + + | Culture Report: No acid fast bacteria isolated at 6 weeks. AFB Smear: AFB not | | detected | + + VALPROIC ACID, PLASMA (10/10/2017 2:40 AM) + + + + | Component | Value | Ref Range | + + + + | VALPROIC ACID | 23.8 (L) | 50.0 - 100.0 ug/mL | + + + + + + + | Specimen | Performing Laboratory | + + + | Blood | [facility], [address] | | | [place] [id number] | + + + ANTIBODY IDENTIFICATION (10/09/2017 5:01 PM) + + + + | Component | Value | Ref Range | + + + + | ANTIBODY 1 | Antibody present, unable to identify | | + + + + + + + | Specimen | Performing Laboratory | + + + | Blood | [facility] SERVICES, TRANSFUSION MEDICINE [address] | | | [facility] [place] [address] | + + + URINE, MICROSCOPIC EXAM [...] + | Urine - Clean catch | [facility], CORE [address] | | | [place] [address] | + + + HIV-1,2 AB/HIV-1 P24 AG ALTAF (10/03/2017 3:36 PM) + + + + | Component | Value | Ref Range | + + + + | HIV-1,2 AB/HIV-1 P24 | Negative | Negative | | AG SCREEN | | | + + + + + + + | Specimen | Performing Laboratory | + + + | Blood | [facility], SPECIAL IMM + COAG [address] | | | [place] [address] | + + + + + | Narrative | + + | HIV-1 p24 Ag and HIV-1,2 Ab not detected. Test modified from original | | marble cutter operator's approved specifications. The performance of the GENERAL SCRAP WORKER HIV Combo | | test, with or without confirmation, was not tested in pediatric patients less than 2 | | years of age. NIH guidelines recommend virologic assays (i.e. HIV 1 VIRAL LOAD) that | | directly detect HIV for diagnosis of HIV infection in infants younger than 2 years. | + + RPR SERUM (10/03/2017 3:36 PM) + + + + | Component | Value | Ref Range | + + + + | RPR SRM QUAL | Non ReactiveComment: Rapid Plasma Reagin | Non Reactive | | | screening test is Non-Reactive. No further | | | | reflex testing is required.Performed by | | | | [facility],[address] [place] [address] | | | | [id number] psi.Lagiar, Gui | | | | MD Arcadio, Lab. Director | | | |[email or web address].Lagiar, Gui Ervin MD, Lab. Director | | + + + + + + + | Specimen | Performing Laboratory | + + + | Blood | [facility] [address] [facility] | | | [place] [address] | + + + TSH (10/03/2017 3:36 PM) + + + + | Component | Value | Ref Range | + + + + | TSH | 0.33 (L) | 0.46 - 5.56 mIU/L | + + + + + + + | Specimen | Performing Laboratory | + + + | Blood | [facility], CORE [address] | | | [place] [address] | + + + + + | Narrative | + + | TSH reference ranges are influenced by a variety of environmental influences, age, | | gender and ethnicity. The supplied reference limits are based on published values | | utilizing a similar TSH assay, and should be interpreted with caution. | + + VITAMIN B-12 (10/03/2017 3:36 PM) [...] | + + + | Blood | [facility], CORE [address] | | | [place] [address] | + + + X-RAY SPINE CERVICAL 2 VIEWS (10/02/2017 10:32 PM)Only the most recent of 2 results within the time period is included. + + + | Specimen | Performing Laboratory | + + + | | [facility] RADIOLOGY VOICE RECOGNITION 2 | + + [...] MD 10/03/2017 8:28 AM | + + X-RAY ABD LTD FEEDING TUBE EVAL (10/01/2017 1:23 PM)Only the most recent of 7 results with in the time period is included. + + + | Specimen | Performing [...] Note | + + | 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, Dynamics Direct Res In Interface - 10/01/2017 2:15 PM [...] MD 10/01/2017 2:08 PM | + + MODIFIED BARIUM SWALLOWING (09/27/2017 1:38 PM)Only the most recent of 2 results within [facility] time period is included. + + + | Specimen | Performing [...] poorly cleared with dry swallows. Please see [facility] pathology report for full details | | | |I have personally reviewed the images and, if necessary, edited the report. I agree with e report as now presented. | | | |Final signature: Julian Tinoco MD 09/27/2017 2:17 PM | |Preliminary: Julian Tinoco MD | + + MRI BRAIN WWO CONTRAST (09/25/2017 6:54 AM) + + + | Specimen | Performing Laboratory | + + + | | [facility] RADIOLOGY VOICE RECOGNITION 2 | + + [...] MD 09/25/2017 12:11 PM | + + TROPONIN I, PLASMA (09/22/2017 9:52 AM) + +-------+ + | Component | Value | Ref Range | + +-------+ + | TROPONIN I | <0.02 | <0.80 ng/mL | + +-------+ + + + + | Specimen | Performing Laboratory | + + + | Blood | [facility], CORE [address] | | | [place] [address] | + + + MARICHUY BHATTI TUBE - GREEN TOP (09/10/2017 2:15 PM) + + + | Specimen | Performing Laboratory | + + + | Blood | [facility], CORE [address] | | | [place] [address] | + + + LIPASE, PLASMA (09/10/2017 5:08 AM) + +-------+ + | Component | Value | Ref Range | + +-------+ + | LIPASE (LAB) | 232 | 152 - 353 U/L | + +-------+ + + + + | Specimen | Performing Laboratory | + + + | Blood | [facility] LABORATORY [facility], CORE [address] | | | [place] [address] | + + + AMYLASE, PLASMA (09/10/2017 5:08 AM) + +-------+ + | Component | Value | Ref Range | + +-------+ + | AMYLASE,PLASMA | 58 | 25 - 115 U/L | + +-------+ + + + + | Specimen | Performing Laboratory | + + + | Blood | [facility], CORE [address] | | | [place] [address] | + + + X-RAY ABD LTD FEEDING TUBE EVAL PORTABLE (09/09/2017 10:15 PM) + + + | Specimen | Performing Laboratory | + + + | | [facility] RADIOLOGY VOICE RECOGNITION 2 | + + [...] | | 09/10/2017 11:11 AM Created by: Edlemira Parsons MD | | | |Tip of [...] by: Edelmira Parsons MD | + + from Last 3 Months Insurance + +--------+ +--------+-------+---------+ | Payer | Benefi | Subscriber | Type | Phone | Address | | | t Plan | ID | | | | | | / | | | | | | | Group | | | | | + +--------+ +--------+-------+---------+ | BOOK [employer]MER MEDICAID | BOOK TRIMMER | xxxxxxxx | Medica | | | | | [place] | | id | | | | | [place] | | | | | + +--------+ +--------+-------+---------+ | AUTO INS OTHER | AUTO | xxx | Auto | | | | | INS | | | | | | | OTHER | | | | | + +--------+ +--------+-------+---------+ + +--------+ +--------+ + + | Guarantor Name | Accoun | Relation to | Date | Phone | Billing Address | | | t Type | Patient | of | | | | | | | | | | + +--------+ +--------+ + + | ARTEMIO TEMPLE | Person | Self [birth year] | Home: | [address] | | | al/Fam | | 3 | +1- | [place] [address] | | | tar[address] | | | [phone] | | + +--------+ +--------+ + + | ARTEMIO TEMPLE | Third | Self [birth year] | Home: | [address] | | | [employer] | | 1951 | +[address]- | [place] [address] | | | [address] | | | [phone] | | | | ity | | | | | + +--------+ +--------+ + +
--- OUTSIDE RECORDS SUMMARY | ~2017-12-10 | XMS | Encounter Summary ---
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 10/09/2017 3:04 PM PDTI saw and examined th e patient today with Venita Pruitt PA-C, and agree with the assessement and plan as outlined in her note. Plan takeback with NSG, we will place Gabriel-oconnor feeding tube at that time. Chaz Munoz MD, FACS Wool Hat Finisher, Trauma, Critical Care and Acute Care Surgery Sherine Sarmiento, [facility] - 10/08/2017 6:21 AM PDTFormatting of this [...] - patient unable to come out of SCOREBOARD OPERATOR for now - Will likely need [...] G tube next [place] [phone] [facility] [place] [address] [phone] Associated attestation - Chaz Munoz MD - 10/08/2017 12:16 PM PDTI saw and examined th e patient today with KESHAWN Martin, and agree with the assessement and plan a s outlined in her note. No acute events. Seems to be slowly improving from MS. Appreciate ps ychiatry recs. Chaz Munoz MD, FACS Wool Hat Finisher, Trauma, Critical Care and Acute Care Surgery [...] - patient unable to come out fo SCOREBOARD OPERATOR for now - Will likely need [...] by patient, but wound remains cl zeferino/dry/intact. Crivitz removed 09/17. #Left hemothorax Chest tube placed [...] restraints due to impulsivity. Will transition to farzaan us TF today and plan for rafy G tube next week. [place] Pg [phone] [facility] [place] [address] [phone] Associated attestation - Chaz Munoz MD - 10/07/2017 11:15 AM PDTI saw and examined th e patient today with KESHAWN Martin, and agree with the assessement and plan a s outlined in her note. Will consider changing to bolus TF. Plan Gabriel-oconnor tube next week. Chaz Munoz MD, FACS Wool Hat Finisher, Trauma, Critical Care and Acute Care Surgery [...] p atient unable to come out fo SCOREBOARD OPERATOR for now Resolved or chronic issues/Plan: [...] issues, including restraints. Venita Pruitt PA-C [place] [phone] [facility] [place] [address] [phone] Associated attestation - Em Cunningham MD - 10/17/2017 10:13 AM PDTI was present and rou nded with the Advanced Practice Provider today . I interviewed and examined the patient. I reviewed the history, as documented today. I agree with the ASHLEY assessment and plan. TBI has remained stable. On lovenox. Will continue haldol per psych.. EM CUNNINGHAM MD [facility] [address] [place] [address] [place] [address] Venita Pruitt PA-C - 10/05/2017 8:38 AM [...] p atient unable to come out fo SCOREBOARD OPERATOR for now Resolved or chronic issues/Plan: [...] by patient, but wound remains duke n/dry/intact. Crivitz removed 09/17. #Left hemothorax Chest tube placed [...] issues, including restraints. Venita Pruitt PA-C [place] [phone] [facility] [place] [address] [place] [facility] [place] [address] [phone] Associated attestation - Shlomo Rosenthal MD - 10/06/2017 7:28 AM PDTFormatting of this note m ay be different from the original. I saw and examined Berlin Temple ([id number]) with the TRAUMA team on 10/05/2017. I [...] incen tive spirometry for pulmonary toliet. manager ui for disposition planning and placement. Shlomo Rosenthal MD Bridge Saw Operator Division of Trauma and Critical Care Venita [...] (baseline from previous TBI ) Neck: in Spurger collar Respiratory: CTA b.l CV: RRR GI: [...] p atient unable to come out fo SCOREBOARD OPERATOR for now Resolved or chronic issues/Plan: [...] by patient, but wound remains duke n/dry/intact. Crivitz removed 09/17. #Left hemothorax Chest tube placed [...] issues, including restraints. Venita Pruitt PA-C [place] [phone] [facility] [address] [place] [facility] [phone] Associated attestation - Fidelina Shields MD - [...] and only enteral access. Fidelina Shields MD Wool Hat Finisher Division of Trauma, Critical Care and Acute Care Surgery Office: [phone] Pager: [phone] Leonor Torres ACNP - 10/03/2017 3:13 PM [...] (baseline from previous TBI ) Neck: in Spurger collar Respiratory: CTA bilaterally, no distress CV: [...] p atient unable to come out fo SCOREBOARD OPERATOR for now Resolved or chronic issues/Plan: [...] by patient, but wound remains duke n/dry/intact. Crivitz removed 09/17. #Left hemothorax Chest tube placed [...] PDTAttending: I saw and examined Berlin Temple ([id number]) with CB Hair on morning rounds 10/03 and agree with the assessment and plan as outlined in this note and participated in the planning of care. Mental status is slightly better, remains sedated but he is interactive and at least somewh at oriented. Enteral nutrition advancing and, as approaches goal, will turn TPN off. Place ment remains a significant issue. Fidelina Shields MD Wool Hat Finisher Division of Trauma, Critical Care and Acute Care Surgery Office: [phone] Pager: [phone] July Banegas PA-C - 10/03/2017 12:58 PM [...] the C-collar when in bed then the SCOREBOARD OPERATOR when out of bed until 12/01/17. JULY BANEGAS PA-C [facility] [address] [place] [address] Associated attestation - Magdiel Stock MD - 10/04/2017 6:02 PM PDTI performed a history a nd physical examination of the patient and discussed the management with the advanced practi ce provider, July Banegas PA-C. I reviewed the advanced practice provider's note and agree w ith the plan of care as documented. Continue cervical collar and SCOREBOARD OPERATOR for 3 months to ensure fracture healing and prevent development of post-fracture cervical kyphosis. Magdiel Stock MD Wool Hat Finisher Department of Neurological Surgery [facility] [place] Torsten Sherine E, AGACN - 10/02/2017 12:54 [...] (baseline from previous TBI ) Neck: in Spurger collar Respiratory: CTA bilaterally, lungs symmetrical, equal chest wall rise, no retractions CV: RRR GI: non tender, soft, active BS, last BM 09/30 : Patient voiding without difficulty Extremities: no peripheral edema, wiggles toes and toes pink and well perfused Musculoskeletal: 5/5 office machine servicer apprentice strength on right, 3/5 office machine servicer apprentice strength on left FEN: on TPN, transitioning [...] AMS & delirium - numerous evaluations by IT SECURITY MANAGER with trials of PO - now s/p [...] . - C-collar at all times, use SCOREBOARD OPERATOR when OOB - Follow-up with Neurosurgery [...] will decrease scheduled [place]dol[place]g [phone] Associated attestation - Fidelina Shields MD - 10/02/2017 4:40 PM PDTAttending: I saw and examined Berlin Temple ([id number]) with KESHAWN Alexander on mornin g rounds [...] drawn back to midline position. May need mcfp enteral access , but is ~4 weeks s/p damage control laparotomy and risk is higher now than it will be in 7- 14 days and if swallow is not improving then will place prior to DC Fidelina Shields MD Wool Hat Finisher Division of Trauma, Critical Care and Acute Care Surgery Office: [phone] Pager: [phone] Sherine Sarmiento AGACNP - 10/01/2017 7:27 AM [...] (baseline from previous TBI ) Neck: in Spurger collar Respiratory: CTA bilaterally, lungs symmetrical, equal chest wall rise, no retractions CV: RRR GI: non tender, soft, active BS, last BM 09/30 : Patient voiding without difficulty Extremities: no peripheral edema, wiggles toes and toes pink and well perfused Musculoskeletal: 5/5 office machine servicer apprentice strength on right, 3/5 office machine servicer apprentice strength on left FEN: on TPN Heme/ID: [...] AMS & delirium - numerous evaluations by IT SECURITY MANAGER with trials of PO - now s/p modified barium swallow x2 which indicates aspiration - continue NPO - IT SECURITY MANAGER reports that patient working on tongue strength [...] . - C-collar at all times, use SCOREBOARD OPERATOR when OOB - Follow-up with Neurosurgery [...] trauma team and [place]g [phone] Associated attestation - Fidelina Shields MD - 10/02/2017 4:40 PM PDTAttending: I saw and examined Berlin Temple ([id number]) with KESHAWN Alexander on mornin g rounds 10/01/17 and agree with the assessment and plan as outlined in this note and partic ipated in the planning of care. Will trial DHT placement today, CT head unchanged. Suspect somnolence is medication side ef fect and, if persistent, may need to wean antipsychotic doses. Fidelina Shields MD Wool Hat Finisher Division of Trauma, Critical Care and Acute Care Surgery Office: [phone] Pager: [phone] Christian Kelley PA-C - 09/30/2017 12:21 PM [...] Fixed and dilated on left Neck: in Spurger collar Respiratory: CTA bilaterally, lungs symmetrical, equal chest wall rise, no retractions CV: RRR GI: non tender, soft, active BS, last BM 09/30 : Patient voiding without difficulty Extremities: no peripheral edema, wiggles toes and toes pink and well perfused Musculoskeletal: 5/5 office machine servicer apprentice strength on right, 3/5 office machine servicer apprentice strength on left FEN: on TPN Heme/ID: [...] AMS & delirium - numerous evaluations by IT SECURITY MANAGER with trials of PO - now s/p modified barium swallow x2 which indicates aspiration - continue NPO - IT SECURITY MANAGER reports that patient working on tongue strength [...] . - C-collar at all times, use SCOREBOARD OPERATOR when OOB - Follow-up with Neurosurgery on 10/21 with repeat X-rays #Blunt abdominal trauma #Splenic laceration S/p laparotomies x2. Fascia closed 09/02 Wound vac removed by patient, but wound remains duke n/dry/intact. Crivitz removed 09/17. #Left hemothorax Chest tube placed [...] PDTAttending: I saw and examined Berlin Temple ([id number]) with Christian Kelley PA-C on morning rounds 09/30 and agree with the assessment and plan as outlined in this note and participated in the planning of care. Mentally slower this morning, but non-focal. Received haldol overnight for sleep. Repeat head CT was unchanged so suspect etiology of slowed responsiveness is the antipsychotic dose . IT SECURITY MANAGER believes that, once collar off, may be able to take PO more effectively and thus will hold off on surgical feeding access. TPN is a temporary solution and if patient remains kaye nable will trial DHT tomorrow. Working with psychiatry for medication recommendations. Fidelina Shields MD Wool Hat Finisher Division of Trauma, Critical Care and Acute Care Surgery Office: [phone] Pager: [phone] July Banegas PA-C - 09/30/2017 8:23 AM PDTBrief Neurosurgery Wound Check: Wound is dry, without erythema, not fluctuant. No acute swelling. Nylon in place. Will plan to follow peripherally for wound checks and remove nylons on 10/09. JULY BANEGAS PA-C [facility] [address] [place] [address] Christian Kelley PA-C - 09/29/2017 7:15 AM [...] and EOMs intact to exam Neck: in Spurger collar Respiratory: CTA bilaterally, lungs symmetrical, equal [...] AMS & delirium - numerous evaluations by IT SECURITY MANAGER with trials of PO - now s/p [...] . - C-collar at all times, use SCOREBOARD OPERATOR when OOB - Follow-up with Neurosurgery on 10/21 with repeat X-rays #Blunt abdominal trauma #Splenic laceration S/p laparotomies x2. Fascia closed 09/02 Wound vac removed by patient, but wound remains duke n/dry/intact. Crivitz removed 09/17. #Left hemothorax Chest tube placed [...] 2:32 PM PDTAttending: I saw and examined Belrin Temple ([id number]) with Christian Kelley PA-C on morning rounds 09/29 and agree with the assessment and plan as outlined in this note and participated in the planning of care. Late entry for 09/29/17. Persistent alterations in conscious and dysphagia. Hopefully with ongoing speech therapy a nd when clear to take c-collar off, will improve ability to take PO. While TPN is not an opt imal computer terminal operator strategy, would prefer not to place surgical feeding tube if possible given r elatively recent damage control laparotomy and high risk of Mr. Temple pulling it out. Have tried DHT several times and it seems to worsen delirium and he pulls it out frequently. Tit ration of haldol in conjunction with psychiatry. Fidelina Shields MD Wool Hat Finisher Division of Trauma, Critical Care and Acute Care Surgery Office: [phone] Pager: [phone] Christian Kelley PA-C - 09/28/2017 1:01 PM [...] he said, who, ariel? And then the WATER MECHANIC helped him make a call to her. [...] and EOMs intact to exam Neck: in Spurger collar Respiratory: CTA bilaterally, lungs symmetrical, equal [...] very agitated today. - EKG today with [place] QTc calculated to be 428 - optimize [...] AMS & delirium - numerous evaluations by IT SECURITY MANAGER with trials of PO - now s/p [...] . - C-collar at all times, use SCOREBOARD OPERATOR when OOB - Follow-up with Neurosurgery [...] to staff, but able to communicate more toyoselni Munoz MD, FACS Wool Hat Finisher, Trauma, Critical Care and Acute Care Surgery Chaz Munoz MD - 09/28/2017 10:13 AM PDTTrauma Staff Seen and examined this AM with team. I have concerns abotu behaviour, as he is consistently threatening RN and ancillary staff, even attempting swings. Behavior seems worse at night. I would favor increasing night time Haldol dose, and following EKGs. Chaz Munoz MD, FACS Wool Hat Finisher, Trauma, Critical Care and Acute Care Surgery [...] Dallin Bourgeois MD Neurosurgery PGY1 | Pager #[phone] Christian Kelley PA-C - 09/27/2017 7:31 AM [...] able to have a linear conversation briefly IT SECURITY MANAGER requesting repeat barium swallow Current meds: I [...] incision healing , suture c/d/I Neck: in SCOREBOARD OPERATOR Respiratory: unlabored on room air, lungs [...] AMS & delirium - numerous evaluations by IT SECURITY MANAGER with trials of PO - now s/p [...] . - C-collar at all times, use SCOREBOARD OPERATOR when OOB - Follow-up with Neurosurgery [...] cotinue TPN for now. EM CUNNINGHAM MD [facility] [address] [place] [address] Christian Kelley PA-C - 09/26/2017 6:48 AM [...] posterior scalp crani incision c/d/I Neck: in Spurger collar Respiratory: unlabored on room air CV: [...] AMS & delirium - numerous evaluations by IT SECURITY MANAGER with trials of PO - now s/p [...] . - C-collar at all times, use SCOREBOARD OPERATOR when OOB - Follow-up with Neurosurgery [...] [facility] CAITIE DYER-C Associated attestation - Em Cunningham [...] Continue NPO and TPN. EM CUNNINGHAM MD [facility] [address] [place] [address] Christian Kelley PA-C - 09/25/2017 7:49 AM [...] HEENT: EOMs intact to exam Neck: in SCOREBOARD OPERATOR brace Respiratory: unlabored on room air [...] AMS & delirium - numerous evaluations by IT SECURITY MANAGER with trials of PO - now s/p [...] . - C-collar at all times, use SCOREBOARD OPERATOR when OOB - Follow-up with Neurosurgery [...] LFTS wnl. Continue TPN. EM CUNNINGHAM MD [facility] [address] [place] [address] Christian Kelley PA-C - 09/24/2017 11:07 AM [...] with agitation Having difficulty swallowing again - IT SECURITY MANAGER to re-eval and obtain barium swallow Current [...] HEENT: EOMs intact to exam Neck: in SCOREBOARD OPERATOR brace Respiratory: CTA bilaterally, lungs symmetrical, equal chest wall rise, no retractions CV: RRR GI: non distended, last BM 09/23 : good urine output Extremities: SCD's in place, no peripheral edema, wiggles toes and toes pink and well perfu sed Musculoskeletal: 5/5 strength in bilateral office machine servicer apprentice (but with slightly weaker on left) , [...] PRN seroquel dose QHS for insomnia/restlessness at [place] - Haldol 5mg q12hr prn for severe [...] likely 2/2 AMS & delirium - Failed IT SECURITY MANAGER eval 09/19 & 09/20, made NPO & dobhoff reinserted 09/21 but pulled overnight - Per IT SECURITY MANAGER on 09/21, ok for therapeutic pureed with [...] . - C-collar at all times, use SCOREBOARD OPERATOR when OOB - Follow-up with Neurosurgery on 10/21 with repeat X-rays #Blunt abdominal trauma #Splenic laceration S/p laparotomies x2. Fascia closed 09/02 Wound vac removed by patient, but wound remains duke n/dry/intact. Crivitz removed 09/17. #Left hemothorax Chest tube placed [...] Start abx for dehiscence. EM CUNNINGHAM MD [facility] [address] [place] [address] Ginette Campos PA-C - 09/24/2017 9:31 AM [...] 4 extremities Unable to assess drift. Motor: Varnishing Unit Operator Bicep Tricep Delt R 5 5 [...] further questions or concerns. Ginette Campos PA-C [facility] [address] [place] [address] Pg [phone] Sherine Sarmiento, [facility] - 09/23/2017 6:32 AM PDTFormatting of this [...] hiscence, draining minimal serosang fluid Neck: in SCOREBOARD OPERATOR brace Respiratory: unlabored on room air [...] PRN seroquel dose QHS for insomnia/restlessness at [place] - Repeat ECG 09/22 with QTc WNL. [...] likely 2/2 AMS & delirium - Failed IT SECURITY MANAGER eval 09/19 & 09/20, made NPO & dobhoff reinserted 09/21 but pulled overnight - Per IT SECURITY MANAGER on 09/21, ok for therapeutic pureed with [...] . - C-collar at all times, use SCOREBOARD OPERATOR when OOB - Follow-up with Neurosurgery on 10/21 with repeat X-rays #Blunt abdominal trauma #Splenic laceration S/p laparotomies x2. Fascia closed 09/02 Wound vac removed by patient, but wound remains duke n/dry/intact. Crivitz removed 09/17. #Left hemothorax Chest tube placed [...] dysphagia & delir ium improves Sherine Sarmiento, [facility] Pg [phone] Dallin Bourgeois MD - 09/22/2017 8:03 AM [...] Dallin Bourgeois MD Neurosurgery PGY1 | Pager #[phone] Sherine Sarmiento, AGACN - 09/22/2017 6:52 AM [...] 24hr events: - Therapeutic purees initiated by IT SECURITY MANAGER yesterday - Trickle feeds via Dobbhoff, pt pulled Dobbhoff yesterday evening- not replaced - FAMILY MEMBER CARETAKER called around 2129 for new left facial droop (see separate notes), CT revealed increa se in SDH from 12 to 17mm with no change in midline shift. [facility] - NSG and stroke team [...] sluggish. Slight left facial droop Neck: in Spurger collar Respiratory: unlabored on room air CV: [...] PRN seroquel dose QHS for insomnia/restlessness at [place]- - Repeat ECG 09/22 with Q Tc WNL. - Haldol 5mg q12hr prn for severe agitation #Substance abuse, concern for Alcohol withdrawal - CIWA discontinued 09/08, not scoring. - Thiamine & folate started 09/21 #Dysphagia, risk for aspiration #Protein calorie malnutirtion - likely 2/2 AMS & delirium - Failed IT SECURITY MANAGER eval 09/19 & 09/20, made NPO & dobhoff reinserted 09/21 but pulled overnight - Per IT SECURITY MANAGER on 09/21, ok for therapeutic pureed with [...] . - C-collar at all times, use SCOREBOARD OPERATOR when OOB - Follow-up with Neurosurgery [...] when dysphagia & delirium improves Sherine Sarmiento, [facility] Pg [phone] Associated attestation - Shiva Nieto MD,MPH - [...] Trauma, Critical Care & Acute Care Surgery [facility] [phone] Sami Black - 09/21/2017 10:25 PM PDTBrief [...] in the morning. Plan: -neuro checks; page [phone] for any decline in neurological examination -pain control -Hard C collar at all times and place SCOREBOARD OPERATOR prior to mobilizing OOB. Anticipated duration of Collar/SCOREBOARD OPERATOR is 12 weeks -repeat CT head for any new decline in neurological exam and page [phone] -NPO at midnight tonight -please hold tonight's planned dose of Lovenox -further recommendations in the morning Sami Black MD, PhD PGY-3 Resident Neurosurgery [id number] estrella, AGACNP - 09/21/2017 7:10 AM PDTFormatting [...] Provena placem ent 24hr events: - Failed IT SECURITY MANAGER eval again yest morning, continued NPO - [...] reactive. Dobbhoff tube in place Neck: in Spurger collar Respiratory: unlabored on room air CV: [...] likely 2/2 AMS & delirium - Failed IT SECURITY MANAGER eval 09/19 & 09/20, made NPO & dobhoff reinserted yesterday - Trickle feeds started this am at 20ml/hr, increase very slowly by 10ml every 12 hrs to go al of 75 due to hx of mesenteric hematomas and previous inability to tolerate TF - Per IT SECURITY MANAGER today, ok for therapeutic pureed with nectar [...] . - C-collar at all times, use SCOREBOARD OPERATOR when OOB - Follow-up with Neurosurgery [...] & delirium i [place] Pg [phone] Associated attestation - Fidelina Shields MD - 09/21/2017 9:36 PM PDTAttending: I saw and examined Berlin Temple ([id number]) with KESHAWN Alexander on mornin g rounds [...] enough to re-trial PO. Fidelina Shields MD [employer] Division of Trauma, Critical Care and Acute Care Surgery Office: [phone] Pager: [phone] Sherine Sarmiento AGACNP - 09/20/2017 7:41 AM [...] haldol given yesterday afternoon for agitation - IT SECURITY MANAGER paged to re-eval in afternoon after concern for aspiration, made NPO by IT SECURITY MANAGER - DARNELL SOLANO Current meds: I have [...] right pupil 3 and reactive Neck: in Spurger collar Respiratory: unlabored on room air CV: [...] thick/pureed d iet. Made NPO yesterday by IT SECURITY MANAGER after concern for aspiration. This is likely 2/2 waxing & wan ing delirium & AMS - IT SECURITY MANAGER re-eval today recommend continue NPO d/t overt clinical signs of aspiration - Place Dobbhoff tube and restart feeds, slowly progress to goal - Stop TPN when tolerating tube feeds - IT SECURITY MANAGER will follow closely, as his AMS improves [...] . - C-collar at all times, use SCOREBOARD OPERATOR when OOB - Follow-up with Neurosurgery [...] & delirium i [place]pro[place] Pg [phone] Associated attestation - Fidelina Shields MD - 09/20/2017 9:34 PM PDTAttending: I saw and examined Berlin Temple ([id number]) with KESHAWN Alexander on mornin g rounds [...] dispo planning when able. Fidelina Shields MD [employer] Division of Trauma, Critical Care and Acute Care Surgery Office: [phone] Pager: [phone] Mary Medrano MD,MPH - 09/19/2017 6:22 AM [...] downgraded from thin to thick liquids by IT SECURITY MANAGER Current meds: I have independently reviewed current [...] intact, small Right fluctuant pseudomeningocele Neck: in Spurger collar Respiratory: unlabored on room air CV: [...] DHT on09/19. - Cleared for diet by IT SECURITY MANAGER, tolerating purees, 749 Calories yesterday - Restart Calorie count: if taking >700 again will be OK for full po diet, otherwise replac e DHT and restart TF - Stop TPN tomorrow regardless - Still considering repeat CT abdomen/pelvis #Dysphagia DHTreplaced overnight 09/07. TF held due to emesis and possible ileus, aspiration risk. DH T pulled overnight on 09/18 - IT SECURITY MANAGER as able Resolved or chronic issues/Plan: #BIG 3 TBI #Right synthetic cranioplasty Neurosurgery consulted. Non-operative management. Last head CT 09/12 stable. Expected pseudo meningocele. Left-sided deficits consistent with baseline. - Stat head CT for any neurologic decline #C7 bilateral lamina fractures #C6-T2 spinous process fractures Neurosurgery consulted. Non-operative management. Upright cervical X-rays completed on 09/14 . - C-collar at all times, use SCOREBOARD OPERATOR when OOB - Follow-up with Neurosurgery [...] M.D., M.P.H. Neurological Surgery Resident PGY-1 Pager: [phone] Associated attestation - Fidelina Shields MD - 09/19/2017 1:36 PM PDTAttending: I saw and examined Berlin Temple ([id number]) with the residents on morning rounds 09/19/17 and agree with the assessment and plan as outlined in this note and participated in the plan aashish of care. Improving po intake, will titrate TPN. Plan to DC TPN tomorrow and transition to PO vs PO + TF depending on calorie counts. Once of restraints will begin looking for placement. Fidelina Shields MD Wool Hat [employer]isher Division of Trauma, Critical Care and Acute Care Surgery Office: [phone] Pager: [phone] Mary Medrano MD,MPH - 09/18/2017 6:17 AM [...] fluctuant pseudomeningocele,Dobhoff tubein p lace Neck: in Spurger collar Respiratory: unlabored on room air CV: [...] holding TF - Cleared for diet by IT SECURITY MANAGER, tolerating small quantities of purees - Will need repeat CT A/P within 1-2 days #Hypervolemia I&O approaching even. Appears to have been auto-diuresing. - Continue to monitor urine output - Monitor electrolytes, replete prn #Dysphagia DHTreplaced overnight 09/07. TF held due to emesis and possible ileus, aspiration risk. - IT SECURITY MANAGER as able #C7 bilateral lamina fractures #C6-T2 spinous process fractures Neurosurgery consulted. Non-operative management. Upright cervical X-rays completed on 09/14 . - C-collar at all times, use SCOREBOARD OPERATOR when OOB - Follow-up with Neurosurgery [...] M.D., M.P.H. Neurological Surgery Resident PGY-1 Pager: [phone] Associated attestation - Fidelina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 CORE [address] | | | [place] [address] | + + + + + | [...] | + + + | Blood | [facility] SERVICES, CORE [address] [address] | | | [place] [address] | + + + RENAL FUNCTION SET [...] | >60 | >60 mL/min | | GEORGIAN | | | + + + + | EGFR NON | >60 | >60 mL/min | | -GEORGIAN | | | + + + + [...] | + + + | Blood | [facility] SERVICES, CORE [address] [facility] | | | [place] [address] | + + + + + | [...] | + + + | Blood | [facility] LABORATORY [facility] [address] | | | [place] [address] | + + + + + | [...] | + + + | | [facility] [address] | | | [place] [address] | + + + 12 LEAD ECG [...] Laboratory | + + + | | [facility] [address] [place] [address] | | | [place], [place] [address] | + + + 12 LEAD ECG [...] Laboratory | + + + | | [facility] [address] [place] [address] | | | [place] [address] | + + + 12 LEAD ECG [...] | | [facility] [address] [facility] | | | [place] [address] | + + + X-RAY SPINE CERVICAL [...] | >60 | >60 mL/min | | GE[place]GIAN | | | + + + + | EGFR NON | >60 | >60 mL/min | | -GEORGIAN | | | + + + + [...] | + + + | Blood | [facility], CORE [address] | | | [place] [address] | + + + + + | [...] | + + + | Blood | [facility], CORE [address] | | | [place] [address] | + + + + + | [...] Note | + + | 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, HeribertoMobilisafe In Interface - 11/19/2017 11:26 AM PDT [...] Laboratory | + + + | | [facility] [address] [place] [address] | | | [place] [address] | + + + 12 LEAD ECG [...] Laboratory | + + + | | [facility] [address] [place] [address] | | | [place], [place] [address] | + + + CALCIUM, IONIZED, WHOLE [...] | + + + | Blood | [facility], CORE [address] | | | [place] [address] | + + + C-REACTIVE PROTEIN (11/18/2017 7:45 AM) + +-------+ + | Component | Value | Ref Range | + +-------+ + | C-REACTIVE PROTEIN | <2.9 | <10.0 mg/L | + +-------+ + + + + | Specimen | Performing Laboratory | + + + | Blood | [facility], CORE [address] | | | [place] [address] | + + + + + | [...] | + + + | Blood | [facility] [address] [place], [place] | | | [address] | + + + TRIGLYCERIDES, PLASMA (11/18/2017 7:45 AM) + +---------+ + | Component | Value | Ref Range | + +---------+ + | TRIGLYCERIDES | 162 (H) | <150 mg/dL | + +---------+ + + + + | Specimen | Performing Laboratory | + + + | Blood | [facility], CORE [address] [facility] | | | [place] [address] | + + + + + | [...] | + + + | Blood | [facility], CORE [address] [place] [address] | | | [place] [address] | + + + RENAL FUNCTION SET [...] | >60 | >60 mL/min | | GEORGIAN | | | + + + + | EGFR NON | >60 | >60 mL/min | | -GEORGIAN | | | + + + + [...] | + + + | Blood | [facility] SERVICES, CORE [address] [place] [address] | | | [place] [address] | + + + + + | [...] | + + + | Blood | [facility], CORE [address] [facility] | | | [place] [address] | + + + + + | [...] | + + + | | [facility] [address] [facility] [facility] [facility] | | | [place] [address] | + + + 12 LEAD ECG [...] | + + + | | [facility] [address] [place] [address] | | | [place] [address] | + + + CBC (HEMOGRAM) ONLY [...] | + + + | Blood | [facility] LABORATORY [facility], CORE [address] [facility] | | | [place] [address] | + + + + + | [...] | | ------ CBC (HEMOGRAM) | | ONLY[[id number]] Abnormal Final | | result Please view [...] Laboratory | + + + | | [facility] [address] [place] [address] | | | [place] [address] | + + + RENAL FUNCTION SET [...] | >60 | >60 mL/min | | GEORGIAN | | | + + + + | EGFR NON | >60 | >60 mL/min | | -GEORGIAN | | | + + + + [...] | + + + | Blood | [facility], CORE [address] [facility] | | | [place], [place] [address] | + + + + + | [...] | + + + | Blood | [facility], CORE [address] [facility] | | | [place] [address] | + + + + + | [...] Laboratory | + + + | | [facility] [address] [place] [address] | | | [place] [address] | + + + MAGNESIUM, PLASMA (11/13/2017 5:47 AM) + +-------+ + | Component | Value | Ref Range | + +-------+ + | MAGNESIUM,PLASMA | 2.1 | 1.6 - 2.6 mg/dL | + +-------+ + + + + | Specimen | Performing Laboratory | + + + | Blood | [facility], CORE [address] [facility] | | | [place] [address] | + + + + + | [...] | >60 | >60 mL/min | | GE[place]GIAN | | | + + + + | EGFR NON | >60 | >60 mL/min | | -GEORGIAN | | | + + + + [...] | + + + | Blood | [facility] SERVICES, CORE [address] | | | [place] [address] | + + + + + | [...] | + + + | Urine | [facility] [address] [place] | | | [address] | + + + VASC LAB VENOUS DUPLEX LOWER EXTREMITY BILAT COMP (11/12/2017 9:35 AM) + + + | Specimen | Performing Laboratory | + + + | | [facility] US | + + + + [...] Note | + + | 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, Techpacker In Interface - 11/12/2017 1:46 PM PDT [...] | + + + | | [facility] [address] [facility] | | | [place] [address] | + + + CT CHEST, ABDOMEN AND PELVIS W IV CONTRAST (11/11/2017 6:57 PM) + + + | Specimen | Performing Laboratory | + + + | | [facility] RADIOLOGY VOICE RECOGNITION 2 | + + [...] | + + + | Blood | [facility] SERVICES, CORE [address] [facility] | | | [place] [address] | + + + PROTEIN ELECTROPHORESIS, SERUM, [...] | + + + | Blood | [facility] [address] [place], [place] | | | [address] | + + + 12 LEAD ECG [...] Laboratory | + + + | | [address] | | | [place] [address] | + + + C-REACTIVE PROTEIN (11/11/2017 9:06 AM) + +-------+ + | Component | Value | Ref Range | + +-------+ + | C-REACTIVE PROTEIN | <2.9 | <10.0 mg/L | + +-------+ + + + + | Specimen | Performing Laboratory | + + + | Blood | [facility], CORE [address] [facility] | | | [place] [address] | + + + + + | [...] | + + + | Blood | [facility] [address] [place], [place] | | | [address] | + + + TRIGLYCERIDES, PLASMA (11/11/2017 9:06 AM) + +-------+ + | Component | Value | Ref Range | + +-------+ + | TRIGLYCERIDES | 117 | <150 mg/dL | + +-------+ + + + + | Specimen | Performing Laboratory | + + + | Blood | [facility], CORE [address] [facility] | | | [place] [address] | + + + + + | [...] | + + + | Blood | [facility] SERVICES, CORE [address] [place] [address] | | | [place] [address] | + + + LIVER SET (AST,ALT,BILI [...] | + + + | Blood | [facility], CORE [address] [facility] | | | [place] [address] | + + + RENAL FUNCTION SET [...] | >60 | >60 mL/min | | GE[place]AN | | | + + + + | EGFR NON | >60 | >60 mL/min | | -GEORGIAN | | | + + + + [...] | + + + | Blood | [facility], CORE [address] [facility] [address] | | | [place] [address] | + + + + + | [...] | + + + | Blood | [facility], CORE [address] [facility] | | | [place] [address] | + + + + + | [...] | + + + | Blood | [facility], CORE [address] [facility] | | | [place] [address] | + + + + + | [...] | >60 | >60 mL/min | | [place]AN | | | + + + + | EGFR NON | >60 | >60 mL/min | | -GEORGIAN | | | + + + + [...] | + + + | Blood | [facility], CORE [address] [place] [address] | | | [place] [address] | + + + + + | [...] Laboratory | + + + | | [facility] [address] [place] [address] | | | [place] [address] | + + + MAGNESIUM, PLASMA (11/10/2017 10:19 AM) + +-------+ + | Component | Value | Ref Range | + +-------+ + | MAGNESIUM,PLASMA | 2.0 | 1.6 - 2.6 mg/dL | + +-------+ + + + + | Specimen | Performing Laboratory | + + + | Blood | [facility]ORY [facility], CORE [address] [facility] | | | [place], [place] [address] | + + + + + | [...] | >60 | >60 mL/min | | GE[place]GIAN | | | + + + + | EGFR NON | >60 | >60 mL/min | | -GEORGIAN | | | + + + + [...] | + + + | Blood | [facility]ORY [facility], CORE [address] | | | [place] [address] | + + + + + | [...] | + + + | Blood | [facility], CORE [address] [place] [address] | | | [place], [place] [address] | + + + + + | [...] | >60 | >60 mL/min | | GE[place]GIAN | | | + + + + | EGFR NON | >60 | >60 mL/min | | -GEORGIAN | | | + + + + [...] | + + + | Blood | [facility], CORE [address] [facility] | | | [place] [address] | + + + + + | [...] Note | + + | Service Account, Overtone Res In Interface - 11/08/2017 2:31 PM [...] | + + + | Blood | [facility], CORE [address] | | | [place] [address] | + + + + + | [...] | >60 | >60 mL/min | | [place]AN | | | + + + + | EGFR NON | >60 | >60 mL/min | | -GEORGIAN | | | + + + + [...] | + + + | Blood | [facility], CORE [address] [place] [address] | | | [facility] [address] | + + + + + | [...] | | [facility] [address] [facility] [facility] | | | [place] [address] | + + + CT HEAD WO [...] Laboratory | + + + | | [facility] [address] [place] [address] | | | [place] [address] | + + + RENAL FUNCTION SET [...] | >60 | >60 mL/min | | GE[place]GIAN | | | + + + + | EGFR NON | >60 | >60 mL/min | | -GEORGIAN | | | + + + + [...] | + + + | Blood | [facility]ORY [facility] [address] | | | [place] [address] | + + + + + | [...] | + + + | Blood | [facility], CORE [address] [facility] | | | [facility] [address] | + + + + + | [...] + + | PRODUCT UNIT # | [id number] | | + + + + | UNIT ABO | O | | + + + + | UNIT RH | POS | | + + + + | STATUS OF UNIT | Returned to Blood Bank | | + + + + | EXPIRATION DATE | [id number] | | + + + + | BLOOD TYPE BARCODE | 5100 | | + + + + | BLOOD PRODUCT CODE | [id number] | | + + + + + + + | Specimen | Performing Laboratory | + + + | | [facility], TRANSFUSION MEDICINE [address] [place] [address] | | | [place] [address] | + + + PRODUCT - RED CELLS LEUKOREDUCED (11/06/2017 8:03 AM) + + + + | Component | Value | Ref Range | + + + + | PRODUCT DESCRIPTION | -1 RED BLOOD CELL ADENINE-SALINE ADDED | | | | LEUKOCYTE | | + + + + | PRODUCT UNIT # | [id number] | | + + + + | UNIT ABO | O | | + + + + | UNIT RH | POS | | + + + + | STATUS OF UNIT | Returned to Blood Bank | | + + + + | EXPIRATION DATE | [id number] | | + + + + | BLOOD TYPE BARCODE | 5100 | | + + + + | BLOOD PRODUCT CODE | [id number] | | + + + + + + + | Specimen | Performing Laboratory | + + + | | [facility], TRANSFUSION MEDICINE [address] [facility] | | | [place] [address] | + + + CBC (HEMOGRAM) ONLY [...] | + + + | Blood | [facility], [facility] [place] [address] [place] [address] | | | [place] [address] | + + + + + | [...] | | ------ CBC (HEMOGRAM) | | ONLY[[id number]] Abnormal Final | | result Please view [...] | + + + | Blood | [facility], CORE [address] [facility] | | | [place] [address] | + + + + + | [...] | >60 | >60 mL/min | | [place] | | | + + + + | EGFR NON | >60 | >60 mL/min | | -GEORGIAN | | | + + + + [...] | + + + | Blood | [facility], CORE [address] [facility] | | | [place] [address] | + + + + + | [...] Attending | | Surgeon: Magdiel Stock MD Machine Bookkeeper(s): Rg Aiken MD | | Preoperative Diagnoses: [...] head was placed in a horseshoe head machinist with his C-collar still | | attached [...] the incision down to the cranium. Once [place] | | skull was reached circumferentially around the prior incision, a #1 [place] was used | | to subperiosteally dissect [...] note for this encounter.Sonal Nunez, | | [facility] [id number] [place], [place] | | [phone] Orina, MDJB/MODLDD: 11/05/2017 20:38:01DT: 11/06/2017 | | 00:27:33Job #: [id number] | |HATTIE/DUC | | | | | | /[id number] | + + CT HEAD WO CONTRAST (11/05/2017 7:55 PM) + + + | Specimen | Performing Laboratory | + + + | | [facility] VOICE RECOGNITION 2 | + [...] Note | + + | Service Account, [employer] Res In Interface - 11/05/2017 8:20 PM [...] | nursing staff. Surgeon: Magdiel Stock MD Machine Bookkeeper: Rg Aiken MD | | Pre-op Diagnosis: [...] | MD Attila PGY-4 Neurological Surgery Pager [phone] | + + CAPILLARY BLOOD GLUCOSE (NO [...] [address] | | | [place] [address] | + + + CAPILLARY BLOOD GLUCOSE [...] [address] | | | [place] [address] | + + + [facility] VENOUS DUPLEX LOWER EXTREMITY BILAT COMP (11/05/2017 10:36 AM) + + + | Specimen | Performing Laboratory | + + + | | [facility] RAD[facility] VAS US | + + + [...] Note | + + | Service Account, [employer] Res In Interface - 11/05/2017 11:31 AM [...] | + + + | Blood | [facility], CORE [address] [facility] | | | [place] [address] | + + + + + | [...] | + + + | Blood | [facility], [facility] [place] [address] | | | [place] [address] | + + + + + | [...] | >60 | >60 mL/min | | [place] | | | + + + + | EGFR NON | >60 | >60 mL/min | | -GE[place]GIAN | | | + + + + [...] | + + + | Blood | [facility], [address] [facility] | | | [place] [address] | + + + + + | [...] | + + + | Blood | [facility], CORE [address] [facility] | | | [place] [address] | + + + + + | [...] | | ------ CBC (HEMOGRAM) | | ONLY[[id number]] Abnormal Final | | result Please view [...] + + | PRODUCT UNIT # | [id number] | | + + + + | UNIT ABO | O | | + + + + | UNIT RH | POS | | + + + + | STATUS OF UNIT | Returned to Blood Bank | | + + + + | EXPIRATION DATE | [id number] | | + + + + | BLOOD TYPE BARCODE | 5100 | | + + + + | BLOOD PRODUCT CODE | [id number] | | + + + + + + + | Specimen | Performing Laboratory | + + + | | [facility], TRANSFUSION MEDICINE [address] | | | [place] [address] | + + + PRODUCT - RED CELLS LEUKOREDUCED (11/04/2017 8:19 PM) + + + + | Component | Value | Ref Range | + + + + | PRODUCT DESCRIPTION | -1 RED BLOOD CELL ADENINE-SALINE ADDED | | | | LEUKOCYTE | | + + + + | PRODUCT UNIT # | [id number] | | + + + + | UNIT ABO | O | | + + + + | UNIT RH | POS | | + + + + | STATUS OF UNIT | Returned to Blood Bank | | + + + + | EXPIRATION DATE | [id number] | | + + + + | BLOOD TYPE BARCODE | 5100 | | + + + + | BLOOD PRODUCT CODE | [id number] | | + + + + + + + | Specimen | Performing Laboratory | + + + | | [facility], TRANSFUSION MEDICINE [address] [place] [address] | | | [place] [address] | + + + CBC (HEMOGRAM) ONLY [...] | + + + | Blood | [facility], CORE [address] | | | [place] [address] | + + + + + | [...] | + + + | Blood | [facility], TRANSFUSION MEDICINE [address] [facility] | | | [place] [address] | + + + ABO & RH [...] | + + + | Blood | [facility], TRANSFUSION MEDICINE [address] [facility] | | | [place] [address] | + + + TYPE AND SCREEN [...] | ------ ABO & RH | | TYPE[[id number]] F | | inal result ANTIBODY | | SCREEN[[id number]] Fin | | al result Please view [...] | + + + | Blood | [facility], CORE [address] | | | [place] [address] | + + + + + | [...] | | ------ CBC (HEMOGRAM) | | ONLY[[id number]] Abnormal Final | | result Please view [...] Laboratory | + + + | | [facility] [address] [place] [address] | | | [place] [address] | + + + CALCIUM, IONIZED, WHOLE [...] | + + + | Blood | [facility], CORE [address] [facility] | | | [place] [address] | + + + C-REACTIVE PROTEIN (11/04/2017 5:59 AM) + +-------+ + | Component | Value | Ref Range | + +-------+ + | C-REACTIVE PROTEIN | <2.9 | <10.0 mg/L | + +-------+ + + + + | Specimen | Performing Laboratory | + + + | Blood | [facility], CORE [address] [facility] | | | [place] [address] | + + + + + | [...] | + + + | Blood | [facility] [address] [place], [place] | | | [address] | + + + TRIGLYCERIDES, PLASMA (11/04/2017 5:59 AM) + +-------+ + | Component | Value | Ref Range | + +-------+ + | TRIGLYCERIDES | 111 | <150 mg/dL | + +-------+ + + + + | Specimen | Performing Laboratory | + + + | Blood | [facility], CORE [address] [facility] | | | [place] [address] | + + + + + | [...] | + + + | Blood | [facility], CORE [address] [place] [address] | | | [place] [place] [address] | + + + RENAL FUNCTION SET [...] | >60 | >60 mL/min | | [place] | | | + + + + | EGFR NON | >60 | >60 mL/min | | -GEORGIAN | | | + + + + [...] | + + + | Blood | [facility], CORE [address] | | | [place] [address] | + + + + + | [...] | + + + | Blood | [facility], CORE [address] [facility] | | | [place], [place] [address] | + + + + + | Narrative | + + | Reference range change effective 8/15/17. | + + MAGNESIUM, PLASMA (11/03/2017 4:39 AM) + +-------+ + | Component | Value | Ref Range | + +-------+ + | MAGNESIUM,PLASMA | 2.0 | 1.6 - 2.6 mg/dL | + +-------+ + + + + | Specimen | Performing Laboratory | + + + | Blood | [facility], CORE [address] [facility] | | | [place] [address] | + + + + + | [...] | >60 | >60 mL/min | | [place] | | | + + + + | EGFR NON | >60 | >60 mL/min | | -GEORGIAN | | | + + + + [...] | + + + | Blood | [facility], CORE [address] [place] [address] | | | [place] [address] | + + + + + | [...] | + + + | Blood | [facility], CORE [address] [facility] | | | [place] [address] | + + + + + [...] | >60 | >60 mL/min | | [place] | | | + + + + | EGFR NON | >60 | >60 mL/min | | -GEORGIAN | | | + + + + [...] | + + + | Blood | [facility] [address] | | | [place] [address] | + + + + + | [...] Laboratory | + + + | | [facility] [address] [place] [address] | | | [place] [address] | + + + MAGNESIUM, PLASMA (11/01/2017 4:40 AM) + +-------+ + | Component | Value | Ref Range | + +-------+ + | MAGNESIUM,PLASMA | 2.0 | 1.6 - 2.6 mg/dL | + +-------+ + + + + | Specimen | Performing Laboratory | + + + | Blood | [facility], CORE [address] [facility] | | | [place] [address] | + + + + + | [...] | >60 | >60 mL/min | | [place]AN | | | + + + + | EGFR NON | >60 | >60 mL/min | | -GEORGIAN | | | + + + + [...] | + + + | Blood | [facility], CORE [address] [place] [address] | | | [place] [address] | + + + + + | [...] These results were discussed with | | Black of trauma on 10/31/2017 [...] Note | + + | Service Account, RadiSingWho Res In Interface - 10/31/2017 8:22 PM [...] by: GABRIELA VANN | | | | 07-06-2018 23:13:32 | | + + + + + + + | Specimen | Performing Laboratory | + + + | | [facility] [address] [place] [address] | | | [place] [address] | + + + RENAL FUNCTION SET [...] | >60 | >60 mL/min | | [place]GIAN | | | + + + + | EGFR NON | >60 | >60 mL/min | | -GEORGIAN | | | + + + + [...] | + + + | Blood | [facility], CORE [address] | | | [place] [address] | + + + + + | [...] | + + + | Blood | [facility], CORE [address] [facility] | | | [place] [address] | + + + + + | Narrative | + + | Reference range change effective 8/15/17. | + + CAPILLARY BLOOD GLUCOSE (NO [...] [address] | | | [place] [address] | + + + MAGNESIUM, PLASMA (10/30/2017 5:29 AM) + +-------+ + | Component | Value | Ref Range | + +-------+ + | MAGNESIUM,PLASMA | 1.8 | 1.6 - 2.6 mg/dL | + +-------+ + + + + | Specimen | Performing Laboratory | + + + | Blood | [facility], CORE [address] | | | [place] [address] | + + + + + | [...] | >60 | >60 mL/min | | GE[place]GIAN | | | + + + + | EGFR NON | >60 | >60 mL/min | | -GEORGIAN | | | + + + + [...] | + + + | Blood | [facility], CORE [address] [place] [address] | | | [place] [address] | + + + + + | [...] Note | + + | Service Account, Techpacker In Interface - 10/29/2017 12:13 PM PDT [...] + + + | | [facility], [facility] [address] | | | [place] [address] | + + + MAGNESIUM, PLASMA (10/29/2017 6:19 AM) + +-------+ + | Component | Value | Ref Range | + +-------+ + | MAGNESIUM,PLASMA | 1.9 | 1.6 - 2.6 mg/dL | + +-------+ + + + + | Specimen | Performing Laboratory | + + + | Blood | [facility], CORE [address] [facility] | | | [place] [address] | + + + + + | [...] | >60 | >60 mL/min | | [place] | | | + + + + | EGFR NON | >60 | >60 mL/min | | -GEORGIAN | | | + + + + [...] | + + + | Blood | [facility] [address] | | | [place] [address] | + + + + + | [...] Laboratory | + + + | | [facility], POINT OF CARE TESTS [address] | | | [place] [address] | + + + 12 LEAD ECG [...] | + + + | | [facility] [address] [place] [address] | | | [place] [address] | + + + CAPILLARY BLOOD GLUCOSE [...] [address] | | | [place] [address] | + + + CAPILLARY BLOOD GLUCOSE (NO CHG), POC (10/28/2017 6:43 AM) + +---------+ + | Component | Value | Ref Range | + +---------+ + | BLOOD GLUCOSE, POC | 127 (H) | 70 - 99 mg/dL | + +---------+ + + + + | Specimen | Performing Laboratory | + + + | | [facility], POINT OF CARE TESTS [address] | | | [place] [address] | + + + C-REACTIVE PROTEIN (10/28/2017 5:29 AM) + + + + | Component | Value | Ref Range | + + + + | C-REACTIVE PROTEIN | 17.9 (H) | <10.0 mg/L | + + + + + + + | Specimen | Performing Laboratory | + + + | Blood | [facility], CORE [address] [facility] | | | [place] [address] | + + + + + | [...] | + + + | Blood | [facility] [place] [address] [place] | | | [address] | + + + TRIGLYCERIDES, PLASMA (10/28/2017 5:29 AM) + +-------+ + | Component | Value | Ref Range | + +-------+ + | TRIGLYCERIDES | 117 | <150 mg/dL | + +-------+ + + + + | Specimen | Performing Laboratory | + + + | Blood | [facility], CORE [address] [facility] | | | [place] [address] | + + + + + | [...] | + + + | Blood | [facility], CORE [address] [place] [address] | | | [place] [address] | + + + LIVER SET (AST,ALT,BILI [...] | + + + | Blood | [facility], CORE [address] [facility] | | | [place] [address] | + + + RENAL FUNCTION SET [...] | >60 | >60 mL/min | | [place]AN | | | + + + + | EGFR NON | >60 | >60 mL/min | | -GEORGIAN | | | + + + + [...] | + + + | Blood | [facility], CORE [address] [facility] | | | [place] [address] | + + + + + | [...] | + + + | Blood | [facility], CORE [address] | | | [place] [address] | + + + + + | [...] [address] | | | [place] [address] | + + + CAPILLARY BLOOD GLUCOSE [...] [address] | | | [place] [address] | + + + CT ABDOMEN AND PELVIS WO IV CONTRAST (10/27/2017 5:38 PM) + + + | Specimen | Performing Laboratory | + + + | | [facility] VOICE RECOGNITION 2 | + [...] Preliminary: Pham Webb MD Dictation initiated: Pham Webb, | | 10/28/2017 8:42 AM | + [...] | Narrative | + + | EXAM: WA CHEST PICC [...] | | Indications:Antibiotics and TPN Procedure location: Unit:[facility] Room: 4 Providers: | | Attending name: Attending physically present: No PICC Nurse name: Madiha Herrera RN | | Assisted by Tim Mendoza RECORDS MANAGEMENT ANALYST Pre-Procedure Consent: written consent obtained | | Consent given by: Next of kin Patient identity confirmed per protocol: Yes Team | | Pause: Immediatly prior to the procedure a pause per protocol was called. A pause | | verifies correct patient, procedure, equipment, technical support manager and site/side marked as | | required. [...] Brachial | | vein. Catheter lot number: [id number] with a length of 55 cm was [...] [address] | | | [place] [address] | + + + 12 LEAD ECG [...] Laboratory | + + + | | [facility] [address] [place] [address] | | | [place] [address] | + + + CAPILLARY BLOOD GLUCOSE [...] [address] | | | [place] [address] | + + + MAGNESIUM, PLASMA (10/27/2017 4:30 AM) + +-------+ + | Component | Value | Ref Range | + +-------+ + | MAGNESIUM,PLASMA | 1.9 | 1.6 - 2.6 mg/dL | + +-------+ + + + + | Specimen | Performing Laboratory | + + + | Blood | [facility], CORE [address] [facility] | | | [place], [place] [address] | + + + + + | [...] | >60 | >60 mL/min | | [place] | | | + + + + | EGFR NON | >60 | >60 mL/min | | -GEORGIAN | | | + + + + [...] | + + + | Blood | [facility], CORE [address] [facility] | | | [place] [address] | + + + + + | [...] [address] | | | [place] [address] | + + + CAPILLARY BLOOD GLUCOSE [...] [address] | | | [place] [address] | + + + CAPILLARY BLOOD GLUCOSE (NO CHG), POC (10/26/2017 5:57 AM) + +---------+ + | Component | Value | Ref Range | + +---------+ + | BLOOD GLUCOSE, POC | 102 (H) | 70 - 99 mg/dL | + +---------+ + + + + | Specimen | Performing Laboratory | + + + | | [facility], POINT OF CARE TESTS [address] | | | [place] [address] | + + + MAGNESIUM, PLASMA (10/26/2017 5:13 AM) + +-------+ + | Component | Value | Ref Range | + +-------+ + | MAGNESIUM,PLASMA | 1.6 | 1.6 - 2.6 mg/dL | + +-------+ + + + + | Specimen | Performing Laboratory | + + + | Blood | [facility], CORE [address] [facility] | | | [place] [address] | + + + + + | [...] | >60 | >60 mL/min | | [place] | | | + + + + | EGFR NON | >60 | >60 mL/min | | -GEORGIAN | | | + + + + [...] | + + + | Blood | [facility], CORE [address] [facility] | | | [place] [address] | + + + + + | [...] [address] | | | [place] [address] | + + + BASIC METABOLIC SET [...] | >60 | >60 mL/min | | [place]AN | | | + + + + | EGFR NON | >60 | >60 mL/min | | -GEORGIAN | | | + + + + [...] | + + + | Blood | [facility], CORE [address] | | | [place] [address] | + + + + + | [...] TESTS [address] | | | [place] [address] | + + + 12 LEAD ECG [...] Laboratory | + + + | | [facility] [address] [place] [address] | | | [place] [address] | + + + CAPILLARY BLOOD GLUCOSE [...] [address] | | | [place] [address] | + + + 12 LEAD ECG [...] Laboratory | + + + | | [facility] [address] [place] [address] | | | [place] [address] | + + + CALCIUM, IONIZED, WHOLE [...] | + + + | Blood | [facility], CORE [address] [place] [address] | | | [place] [place] [address] | + + + PREALBUMIN (10/24/2017 4:50 PM) + + + + | Component | Value | Ref Range | + + + + | PREALBUMIN | 14.7 (L) | 17.0 - 42.0 mg/dL | + + + + + + + | Specimen | Performing Laboratory | + + + | Blood | [facility] [address] [place], [place] | | | [address] | + + + C-REACTIVE PROTEIN (10/24/2017 4:45 PM) + + + + | Component | Value | Ref Range | + + + + | C-REACTIVE PROTEIN | 16.0 (H) | <10.0 mg/L | + + + + + + + | Specimen | Performing Laboratory | + + + | Blood | [facility], CORE [address] [facility] | | | [place] [address] | + + + + + | [...] | + + + | Blood | [facility], CORE [address] [facility] | | | [facility] [address] | + + + TRIGLYCERIDES, PLASMA (10/24/2017 4:45 PM) + +-------+ + | Component | Value | Ref Range | + +-------+ + | TRIGLYCERIDES | 93 | <150 mg/dL | + +-------+ + + + + | Specimen | Performing Laboratory | + + + | Blood | [facility], CORE [address] [facility] [address] | | | [place] [address] | + + + + + | [...] | + + + | Blood | [facility], CORE [address] [place] [address] | | | [place] [address] | + + + ALKALINE PHOSPHATASE, PLASMA (10/24/2017 4:45 PM) + +---------+ + | Component | Value | Ref Range | + +---------+ + | ALK PHOS | 200 (H) | 56 - 119 U/L | + +---------+ + + + + | Specimen | Performing Laboratory | + + + | Blood | [facility], CORE [address] | | | [place] [address] | + + + BILIRUBIN DIRECT (10/24/2017 [...] | + + + | Blood | [facility], CORE [address] | | | [place] [address] | + + + BILIRUBIN TOTAL (10/24/2017 [...] | + + + | Blood | [facility], [place] [address] | | | [place] [address] | + + + PHOSPHORUS, PLASMA (10/24/2017 4:45 PM) + +-------+ + | Component | Value | Ref Range | + +-------+ + | PHOSPHORUS, PLASMA | 3.2 | 2.4 - 4.7 mg/dL | | (LAB) | | | + +-------+ + + + + | Specimen | Performing Laboratory | + + + | Blood | [facility], CORE [address] [facility] | | | [place] [address] | + + + ALBUMIN, PLASMA (10/24/2017 4:45 PM) + +---------+ + | Component | Value | Ref Range | + +---------+ + | ALBUMIN, PLASMA | 2.6 (L) | 3.5 - 4.7 g/dL | | (LAB) | | | + +---------+ + + + + | Specimen | Performing Laboratory | + + + | Blood | [facility], CORE [address] [facility] | | | [place] [address] | + + + MAGNESIUM, PLASMA (10/24/2017 4:45 PM) + +-------+ + | Component | Value | Ref Range | + +-------+ + | MAGNESIUM,PLASMA | 1.7 | 1.6 - 2.6 mg/dL | + +-------+ + + + + | Specimen | Performing Laboratory | + + + | Blood | [facility], CORE [address] [facility] | | | [place] [address] | + + + + + | [...] | >60 | >60 mL/min | | [place] | | | + + + + | EGFR NON | >60 | >60 mL/min | | -GEORGIAN | | | + + + + [...] | + + + | Blood | [facility], CORE [address] | | | [place] [address] | + + + + + | [...] | | muscle-wasting diseses | + + CHELE LINE (10/24/2017 4:01 PM) + + | Narrative | + + | Farhan Sosa RN 10/24/2017 4:05 PM PICC LINE Performed by: JAMI, | | FARHAN Authorized by: CHAZ MUNOZ PICC/Midline Insertion Procedure Note | | Indications:TPN Procedure location: Unit:13a Room: 4 Providers: Attending name: | | Attending physically present: No PICC Nurse name: Nery Sosa Pre-Procedure Consent: | | written consent obtained Consent given by: Next of kin Patient identity confirmed | | per protocol: Yes Team Pause: Immediatly prior to the procedure a pause per protocol | | was called. A pause verifies correct patient, procedure, equipment, technical support manager | | and site/side marked as required. [...] Arm area Basilic vein. Catheter lot number: [id number] with a length of 55 cm | [...] Laboratory | + + + | | [facility] VOICE RECOGNITION 2 | + + + + + | Narrative | + + | EXAM: WA CHEST 1 [...] [address] | | | [place] [address] | + + + PROCEDURE NOTE (10/24/2017 [...] Surgical Critical Care, PGY7 | | Pager: [phone] | + + CAPILLARY BLOOD GLUCOSE (NO [...] [address] | | | [place] [address] | + + + CAPILLARY BLOOD GLUCOSE (NO CHG), POC (10/24/2017 8:50 AM) + +-------+ + | Component | Value | Ref Range | + +-------+ + | BLOOD GLUCOSE, POC | 98 | 70 - 99 mg/dL | + +-------+ + + + + | Specimen | Performing Laboratory | + + + | | [facility], POINT OF CARE TESTS [address] | | | [place] [address] | + + + RENAL FUNCTION SET [...] | >60 | >60 mL/min | | [place] | | | + + + + | EGFR NON | >60 | >60 mL/min | | -GEORGIAN | | | + + + + [...] | + + + | Blood | [facility], [facility] [address] [facility] | | | [place] [address] | + + + + + | [...] | + + + | Blood | [facility], CORE [address] [facility] | | | [place] [address] | + + + + + | [...] [address] | | | [place] [address] | + + + CBC AND AUTO [...] | + + + | Blood | [facility], [place] [address] | | | [place] [address] | + + + + + | [...] | >60 | >60 mL/min | | [place] | | | + + + + | EGFR NON | >60 | >60 mL/min | | -GEORGIAN | | | + + + + [...] | + + + | Blood | [facility], [address] | | | [place] [address] | + + + + + | [...] | ------ CBC AND AUTO | | DIFF[[id number]] Abnormal Final | | result Please view [...] Laboratory | + + + | | [facility] [address] [place] [address] | | | [place] [address] | + + + IR GASTROSTOMY TUBE EXCHANGE (10/22/2017 2:42 PM) + + + | Specimen | Performing Laboratory | + + + | | [facility] VOICE RECOGNITION | + + + + + | Narrative | + + | Procedure: Gastrostomy tube exchange Primary attending xerox machine mechanic: Shade | | Bryn Goodwin Preoperative diagnosis: Malfunctioning Gastrostomy tube | | Postoperative diagnosis: Same Operations: Operation 1. Removal of existing | | Gastrostomy tube over a guide wire Operation 2. Placement of 24 [place] GABRIEL | | gastrostomy over guide wire [...] | | glide wire the new 24 [place] gastrostomy tube was inserted. The position of [...] Procedure: | | Gastrostomy tube exchangePrimary attending xerox machine mechanic: Shade Goodwin, | | BrynPreoperative diagnosis: Malfunctioning Gastrostomy tubePostoperative diagnosis: | | SameOperations:Operation 1. Removal of existing Gastrostomy tube over a guide | | wireOperation 2. Placement of 24 [place] GABRIEL gastrostomy over guide wireNo sedation was [...] glide wire the | | new 24 [place] gastrostomy tube was inserted. The position of [...] stiff g lide wire the new 24 [place] | |gastrostomy tube was inserted. The position [...] gastrostomy tube although the disk of brice frankie old gastrostomy tube was positioned at [...] Laboratory | + + + | | [facility] | + + + + [...] Note | + + | Service Account, [employer] In Interface - 10/22/2017 10:34 AM PDT [...] Laboratory | + + + | | [facility] [address] | | | [place] [address] | + + + CT ABDOMEN AND PELVIS W IV CONTRAST (10/22/2017 3:56 AM) + + + | Specimen | Performing Laboratory | + + + | | [facility] VOICE RECOGNITION 2 | + [...] | + + + | Blood | [facility], C[facility] [address] | | | [place] [address] | + + + + + | [...] | >60 | >60 mL/min | | [place] | | | + + + + | EGFR NON | >60 | >60 mL/min | | -GEORGIAN | | | + + + + [...] | + + + | Blood | [facility], CORE [address] | | | [place] [address] | + + + + + | [...] | | ------ CBC (HEMOGRAM) | | ONLY[[id number]] Abnormal Final | | result Please view [...] Laboratory | + + + | | [facility] [address] [place] [address] | | | [place] [address] | + + + RENAL FUNCTION SET [...] | >60 | >60 mL/min | | [place] | | | + + + + | EGFR NON | >60 | >60 mL/min | | -GEORGIAN | | | + + + + [...] | + + + | Blood | [facility] [address] | | | [place] [address] | + + + + + | [...] | + + + | Blood | [facility], CORE [address] [facility] [address] | | | [place] [address] | + + + + + | [...] Laboratory | + + + | | [facility] [address] [address] | | | [place] [address] | + + + MAGNESIUM, PLASMA (10/18/2017 9:01 AM) + +-------+ + | Component | Value | Ref Range | + +-------+ + | MAGNESIUM,PLASMA | 1.9 | 1.6 - 2.6 mg/dL | + +-------+ + + + + | Specimen | Performing Laboratory | + + + | Blood | [facility], CORE [address] | | | [place] [address] | + + + + + | [...] | >60 | >60 mL/min | | [place]AN | | | + + + + | EGFR NON | >60 | >60 mL/min | | -GEORGIAN | | | + + + + [...] | + + + | Blood | [facility], CORE [address] | | | [place] [address] | + + + + + | [...] Laboratory | + + + | | [facility] [address] [place] [address] | | | [place] [address] | + + + RENAL FUNCTION SET [...] | >60 | >60 mL/min | | [place]GIAN | | | + + + + | EGFR NON | >60 | >60 mL/min | | -GEORGIAN | | | + + + + [...] | + + + | Blood | [facility], CORE [address] | | | [place] [address] | + + + + + | [...] | + + + | Blood | [facility], CORE [address] [facility] | | | [place] [address] | + + + + + | [...] DE LOS SANTOS | | | | 06-21-2018 12:37:03 | | + + + + + + + | Specimen | Performing Laboratory | + + + | | [facility] [address] [place] [address] | | | [place] [address] | + + + BASIC METABOLIC SET [...] | >60 | >60 mL/min | | GE[place]GIAN | | | + + + + | EGFR NON | >60 | >60 mL/min | | -GEORGIAN | | | + + + + [...] | + + + | Blood | [facility], CORE [address] | | | [place] [address] | + + + + + | [...] | + + + | Blood | [facility], CORE [address] | | | [place] [address] | + + + + + | [...] | | ------ CBC (HEMOGRAM) | | ONLY[[id number]] Abnormal Final | | result Please view results for these tests on the | | individual orders. | + + [facility] VENOUS DUPLEX LOWER EXTREMITY BILAT COMP (10/15/2017 3:08 PM) + + + | Specimen | Performing Laboratory | + + + | | [facility] | + + + + [...] Service Account, Radiant Res In Interface - 10/15/2017 3:58 PM [...] Laboratory | + + + | | [facility] [address] [place] [address] | | | [place] [address] | + + + CAPILLARY BLOOD GLUCOSE [...] [address] | | | [place] [address] | + + + CBC (HEMOGRAM) ONLY [...] | + + + | Blood | [facility], CORE [address] | | | [place] [address] | + + + + + | [...] | | ------ CBC (HEMOGRAM) | | ONLY[[id number]] Abnormal Final | | result Please view [...] + + + | | [facility], POINT OF CARE TESTS [address] | | | [place] [address] | + + + 12 LEAD ECG [...] Laboratory | + + + | | [facility] [address] [place] [address] | | | [place] [address] | + + + CBC (HEMOGRAM) ONLY [...] | + + + | Blood | [facility], CORE [address] | | | [place] [address] | + + + + + | [...] | >60 | >60 mL/min | | [place]AN | | | + + + + | EGFR NON | >60 | >60 mL/min | | -GEORGIAN | | | + + + + [...] | + + + | Blood | [facility], CORE [address] [place] [address] | | | [place] [address] | + + + + + | [...] | + + + | Blood | [facility], CORE [address] | | | [place] [address] | + + + + + | [...] | | ------ CBC (HEMOGRAM) | | ONLY[[id number]] Abnormal Final | | result Please view [...] Laboratory | + + + | | [facility], POINT OF CARE TESTS [address] | | | [place] [address] | + + + CAPILLARY BLOOD GLUCOSE [...] [address] | | | [place] [address] | + + + CBC (HEMOGRAM) ONLY [...] | + + + | Blood | [facility], CORE [address] [facility] [address] | | | [place] [address] | + + + + + | [...] | >60 | >60 mL/min | | [place]AN | | | + + + + | EGFR NON | >60 | >60 mL/min | | -GEORGIAN | | | + + + + [...] | + + + | Blood | [facility], [facility] [address] [facility] | | | [place] [address] | + + + + + | [...] | | ------ CBC (HEMOGRAM) | | ONLY[[id number]] Abnormal Final | | result Please view results for these tests on the | | individual orders. | + + OPERATION RECORD (10/12/2017 8:50 PM) + + | Procedure Note | + + | Pilar Cotto MD - 10/12/2017 8:50 PM PDT Date of Service: 10/12/2017 | | Attending Surgeon: Chaz Munoz MD Machine Bookkeeper(s): Randell Dixon M.D., | | fellow. George [...] saline. We then | | placed a 19-[place] Islander drain deep into the abscess cavity, tracking [...] 10/12/2017 19:50:06DT: 10/12/2017 20:50:54Job #: | | [id number] | + + X-RAY PORTABLE CHEST 1 VIEW (10/12/2017 7:50 PM) + + + | Specimen | Performing Laboratory | + + + | | [facility] VOICE RECOGNITION 2 | + + + + + | Narrative | + + | EXAM: WA CHEST 1 [...] [address] | | | [place] [address] | + + + CT ABDOMEN AND PELVIS W IV CONTRAST (10/12/2017 9:05 AM) + + + | Specimen | Performing Laboratory | + + + | | [facility] VOICE RECOGNITION 2 | + [...] | + + + | Blood | [facility], CORE [address] [facility] | | | [place] [address] | + + + + + | [...] | >60 | >60 mL/min | | [place]AN | | | + + + + | EGFR NON | >60 | >60 mL/min | | -GEORGIAN | | | + + + + [...] | + + + | Blood | [facility], CORE [address] [facility] | | | [facility] [place] [address] | + + + + + | [...] | | ------ CBC (HEMOGRAM) | | ONLY[[id number]] Abnormal Final | | result Please view [...] | + + + | Blood | [facility], CORE [address] [facility] | | | [place] [address] | + + + + + | [...] Laboratory | + + + | | [facility] [address] [facility] | | | [place] [address] | + + + 12 LEAD ECG [...] Laboratory | + + + | | [facility] [address] [place] [address] | | | [place] [address] | + + + CBC (HEMOGRAM) ONLY [...] | + + + | Blood | [facility], CORE [address] | | | [place] [address] | + + + + + | [...] | + + + | Blood | [facility], CORE [address] [facility] | | | [place] [address] | + + + + + | [...] | >60 | >60 mL/min | | [place]AN | | | + + + + | EGFR NON | >60 | >60 mL/min | | -GEORGIAN | | | + + + + [...] | + + + | Blood | [facility], CORE [address] [address] [address] | | | [place] [address] | + + + + + | [...] | | ------ CBC (HEMOGRAM) | | ONLY[[id number]] Abnormal Final | | result Please view results for these tests on the | | individual orders. | + + PROCEDURE NOTE (10/10/2017 10:00 PM) + + | Narrative | + + | Darius Link MD 10/12/2017 11:11 AM OPERATIVE REPORT DATE OF | | OPERATION: 10/10/2017 ATTENDING SURGEON: 1. Dr. Munoz COLOR BLENDER: 1. Darius | | MD Nikolay INDICATIONS: Dysphagia and need for [facility] nutrition access | | PREOPERATIVE DIAGNOSIS: 1.Dysphagia and need for [facility] nutrition access | | POSTOPERATIVE DIAGNOSIS: 1.Same [...] to follow. | | [place] [id number] Chief Resident Neurosurgery | + + CBC [...] | + + + | Blood | [facility], CORE [address] | | | [place] [address] | + + + + + | [...] | | ------ CBC (HEMOGRAM) | | ONLY[[id number]] Abnormal Final | | result Please view [...] | >60 | >60 mL/min | | [place] | | | + + + + | EGFR NON | >60 | >60 mL/min | | -GEORGIAN | | | + + + + [...] | + + + | Blood | [facility], CORE [address] [address] | | | [place], [place] [address] | + + + + + | [...] | + + + | Blood | [facility], CORE [address] [address] | | | [place] [address] | + + + + + | Narrative | + + | Reference range change effective 12/11/16. | + + OPERATION RECORD (10/10/2017 12:40 PM) + + | Procedure Note | + + | Magdiel Stock MD - 10/10/2017 12:40 PM PDT Date of Service: 10/10/2017 Attending | | Surgeon: Magdiel Stock MD Machine Bookkeeper(s): Cecilia Hernandez | | . Preoperative Diagnoses: 1. Cranioplasty [...] | the note for this encounter.Sonal Nunez MDMODANIELLE [id number] [facility] | | [place] [id number] Orina, MDFAH/MODROSYD: | | 10/10/2017 11:52:15DT: 10/10/2017 12:40:41Job #: [id number] | | | | | |I was present for the critical portions of the procedure as described in the note for this encounter. | | | |Magdiel Stock MD | | | |Magdiel Stock MD | |[address] | |[address] [facility] | |[facility] | |[place] [address] | |[phone] | | | | | |Magdiel Stock MD | |JAYLAN/DUC | | | | | | /[id number] | + + X-RAY ABDOMEN 1 VIEW [...] + + | Tissue - Head | [facility] [place] [address] [place], [place] | | | [address] | + + + + + | [...] + + | Swab - Head | [facility] [place] [address] [place], [place] | | | [address] | + + + + + | [...] + + | Swab - Head | [facility] [address] [place], [place] | | | [address] | + + + + + | [...] + + | Swab - Head | [facility] [address] [place] [address] | | | [address] | + + + + + | Narrative | + + | Culture Report: No acid fast bacteria isolated at 6 weeks. AFB Smear: AFB not | | detected | + + CULTURE, FUNGAL EXCEPT BLOOD, SKIN, HAIR, NAIL (10/10/2017 9:00 AM) + + + | Specimen | Performing Laboratory | + + + | Swab - Head | [facility] [place] [address] [facility], [place] | | | [address] | + + + + + | [...] + + | Swab - Head | [facility] [address] [place], [place] | | | [address] | + + + + + | [...] | Swab - Head | [facility] [place] [address] [place], [place] | | | [address] | + + + + + | [...] + + | Tissue - Head | [facility] [address] [place], [place] | | | [address] | + + + + + | [...] + + | Tissue - Head | [facility] [place] [address] [place], [place] | | | [address] | + + + + + | [...] + + | Swab - Head | [facility] [address] [place], [place] | | | [address] | + + + + + | [...] + + | Swab - Head | [facility] [place] [address] [place], [place] | | | [address] | + + + + + | [...] - Head | [facility] [place] [address] [place], [place] | | | [address] | + + + + + | Narrative | + + | Culture Report: No acid fast bacteria isolated at 6 weeks. AFB Smear: AFB not | | detected | + + CULTURE, FUNGAL EXCEPT BLOOD, SKIN, HAIR, NAIL (10/10/2017 8:38 AM) + + + | Specimen | Performing Laboratory | + + + | Swab - Head | [facility] [place] [address] [place], [place] | | | [address] | + + + + + | [...] + + | Swab - Head | [facility] [address] [place], [place] | | | [address] | + + + + + | [...] + + | Swab - Head | [facility] [address] [place], [place] | | | [address] | + + + + + | Narrative | + + | Culture Report: No acid fast bacteria isolated at 6 weeks. AFB Smear: AFB not | | detected | + + CULTURE, FUNGAL EXCEPT BLOOD, SKIN, HAIR, NAIL (10/10/2017 8:31 AM) + + + | Specimen | Performing Laboratory | + + + | Swab - Head | [facility] [place] [address] [place], [place] | | | [address] | + + + + + | [...] + + | Swab - Head | [facility] [address] [place], [place] | | | [address] | + + + + + | [...] + + | Swab - Head | [facility] [address] [place] [address] | | | [address] | + + + + + | [...] MD 10/10/2017 8:22 AM | | Preliminary: hSun Carpio MD Dictation initiated: Shun Carpio MD 10/10/2017 3:05 | | AM | |IMPRESSION: | | | |Stable postsurgical changes of right hemicranioplasty with underlying extra-axial fluid col lection and unchanged 2 mm leftward midline shift. | | | |I have personally reviewed the images and, if necessary, edited the report. I agree with [facility] report as now presented. | | | [...] | + + + | Blood | [facility], CORE [address] [place] [address] | | | [place] [address] | + + + CBC (HEMOGRAM) ONLY [...] | + + + | Blood | [facility]ORY [facility] [address] [facility] | | | [place] [address] | + + + + + | [...] | | ------ CBC (HEMOGRAM) | | ONLY[[id number]] Abnormal Final | | result Please view [...] | + + + | Blood | [facility], CORE [address] [facility] | | | [place] [address] | + + + + + | [...] | >60 | >60 mL/min | | [place]AN | | | + + + + | EGFR NON | >60 | >60 mL/min | | -GEORGIAN | | | + + + + [...] | + + + | Blood | [facility], CORE [address] | | | [place] [address] | + + + + + | [...] Laboratory | + + + | | [facility] [address] [place] [address] | | | [place] [address] | + + + PRODUCT - RED CELLS LEUKOREDUCED (10/09/2017 5:12 PM) + + + + | Component | Value | Ref Range | + + + + | PRODUCT DESCRIPTION | -1 RED BLOOD CELL ADENINE-SALINE ADDED | | | | LEUKOCYTE | | + + + + | PRODUCT UNIT # | [id number] | | + + + + | UNIT ABO | O | | + + + + | UNIT RH | POS | | + + + + | STATUS OF UNIT | Returned to Blood Bank | | + + + + | EXPIRATION DATE | [id number] | | + + + + | BLOOD TYPE BARCODE | 5100 | | + + + + | BLOOD PRODUCT CODE | [id number] | | + + + + + + + | Specimen | Performing Laboratory | + + + | | [facility], TRANSFUSION MEDICINE [address] [facility] | | | [place] [address] | + + + PRODUCT - RED CELLS LEUKOREDUCED (10/09/2017 5:12 PM) + + + + | Component | Value | Ref Range | + + + + | PRODUCT DESCRIPTION | -1 RED BLOOD CELL ADENINE-SALINE ADDED | | | | LEUKOCYTE | | + + + + | PRODUCT UNIT # | [id number] | | + + + + | UNIT ABO | O | | + + + + | UNIT RH | POS | | + + + + | STATUS OF UNIT | Returned to Blood Bank | | + + + + | EXPIRATION DATE | [id number] | | + + + + | BLOOD TYPE BARCODE | 5100 | | + + + + | BLOOD PRODUCT CODE | [id number] | | + + + + + + + | Specimen | Performing Laboratory | + + + | | [facility], [facility] MEDICINE [address] [facility] | | | [place] [address] | + + + ANTIBODY IDENTIFICATION (10/09/2017 5:01 PM) + + + + | Component | Value | Ref Range | + + + + | ANTIBODY 1 | Antibody present, unable to identify | | + + + + + + + | Specimen | Performing Laboratory | + + + | Blood | [facility], TRANSFUSION MEDICINE [address] [place] [address] | | | [place] [address] | + + + ANTIBODY SCREEN (10/09/2017 5:01 PM) + + + + | Component | Value | Ref Range | + + + + | Antibody Screen | Positive | | + + + + + + + | Specimen | Performing Laboratory | + + + | Blood | [facility], TRANSFUSION MEDICINE [address] [facility] | | | [place] [address] | + + + ABO & RH [...] | + + + | Blood | [facility], TRANSFUSION MEDICINE [address] [place] [address] | | | [place] [address] | + + + TYPE AND SCREEN [...] | ------ ABO & RH | | TYPE[[id number]] F | | inal result ANTIBODY | | SCREEN[[id number]] Fin | | al result Please view [...] | + + + | Blood | [facility]ORY [facility], CORE [address] [facility] | | | [place] [address] | + + + + + | [...] + | | [facility] [address] [place] [address] | | | [facility] [address] | + + + VASC LAB VENOUS [...] | + + | Service Account, Kostas Cyntellect In Interface - 10/08/2017 10:47 AM PDT [...] Laboratory | + + + | | [facility] [place], POINT OF CARE TESTS [address] | | | [place] [address] | + + + CBC (HEMOGRAM) ONLY [...] | + + + | Blood | [facility], CORE [address] [facility] | | | [place] [address] | + + + + + | [...] | + + + | Blood | [facility], CORE [address] [facility] [address] | | | [place] [address] | + + + + + | [...] | | ------ CBC (HEMOGRAM) | | ONLY[[id number]] Abnormal Final | | result Please view [...] | >60 | >60 mL/min | | [place] | | | + + + + | EGFR NON | >60 | >60 mL/min | | -GEORGIAN | | | + + + + [...] | + + + | Blood | [facility], CORE [address] [facility] | | | [place] [address] | + + + + + | [...] Laboratory | + + + | | [facility], POINT OF CARE TESTS [address] | | | [place] [address] | + + + CAPILLARY BLOOD GLUCOSE [...] [address] | | | [place] [address] | + + + CAPILLARY BLOOD GLUCOSE [...] [address] | | | [place] [address] | + + + CAPILLARY BLOOD GLUCOSE (NO CHG), POC (10/07/2017 11:43 AM) + +---------+ + | Component | Value | Ref Range | + +---------+ + | BLOOD GLUCOSE, POC | 142 (H) | 70 - 99 mg/dL | + +---------+ + + + + | Specimen | Performing Laboratory | + + + | | [facility], POINT OF CARE TESTS [address] | | | [place] [address] | + + + CAPILLARY BLOOD GLUCOSE [...] [address] | | | [place] [address] | + + + CBC (HEMOGRAM) ONLY [...] | + + + | Blood | [facility], [facility] [address] [facility] | | | [place] [address] | + + + + + | [...] | + + + | Blood | [facility], CORE [address] [facility] | | | [place] [address] | + + + + + | [...] | | ------ CBC (HEMOGRAM) | | ONLY[[id number]] Abnormal Final | | result Please view [...] | >60 | >60 mL/min | | [place] | | | + + + + | EGFR NON | >60 | >60 mL/min | | -GEORGIAN | | | + + + + [...] | + + + | Blood | [facility], CORE [address] [facility] | | | [facility] [place] [address] | + + + + + | [...] Laboratory | + + + | | [facility], POINT OF CARE TESTS [address] | | | [place] [address] | + + + CAPILLARY BLOOD GLUCOSE [...] [address] | | | [place] [address] | + + + 12 LEAD ECG [...] Laboratory | + + + | | [facility] [address] [place] [address] | | | [place] [address] | + + + CAPILLARY BLOOD GLUCOSE (NO CHG), POC (10/06/2017 12:03 PM) + +-------+ + | Component | Value | Ref Range | + +-------+ + | BLOOD GLUCOSE, POC | 87 | 70 - 99 mg/dL | + +-------+ + + + + | Specimen | Performing Laboratory | + + + | | [facility], POINT OF CARE TESTS [address] | | | [place] [address] | + + + CBC (HEMOGRAM) ONLY [...] | + + + | Blood | [facility], CORE [address] [place] [address] | | | [place] [address] | + + + + + | [...] | + + + | Blood | [facility], CORE [address] [facility] | | | [place] [address] | + + + + + | [...] | | ------ CBC (HEMOGRAM) | | ONLY[[id number]] Abnormal Final | | result Please view [...] | >60 | >60 mL/min | | [place] | | | + + + + | EGFR NON | >60 | >60 mL/min | | -GEORGIAN | | | + + + + [...] | + + + | Blood | [facility], CORE [address] | | | [place] [address] | + + + + + | [...] Laboratory | + + + | | [facility] [address] | | | [place] [address] | + + + CAPILLARY BLOOD GLUCOSE [...] [address] | | | [place] [address] | + + + CAPILLARY BLOOD GLUCOSE [...] [address] | | | [place] [address] | + + + CAPILLARY BLOOD GLUCOSE [...] [address] | | | [place] [address] | + + + 12 LEAD ECG [...] Laboratory | + + + | | [facility] [address] [place] [address] | | | [place] [address] | + + + CBC (HEMOGRAM) ONLY [...] | + + + | Blood | [facility], CORE [address] [place] | | | [place] [address] | + + + + + | [...] | + + + | Blood | [facility], CORE [address] | | | [place] [address] | + + + + + | [...] | | ------ CBC (HEMOGRAM) | | ONLY[[id number]] Abnormal Final | | result Please view [...] | >60 | >60 mL/min | | GEORGIAN | | | + + + + | EGFR NON | >60 | >60 mL/min | | -GEORGIAN | | | + + + + [...] | + + + | Blood | [facility], CORE [address] [place] [address] | | | [place] [address] | + + + + + | [...] + + + | | [facility] [address] | | | [place] [address] | + + + CAPILLARY BLOOD GLUCOSE [...] [address] | | | [place] [address] | + + + CAPILLARY BLOOD GLUCOSE [...] [address] | | | [place] [address] | + + + CAPILLARY BLOOD GLUCOSE (NO CHG), POC (10/04/2017 12:30 PM) + +---------+ + | Component | Value | Ref Range | + +---------+ + | BLOOD GLUCOSE, POC | 137 (H) | 70 - 99 mg/dL | + +---------+ + + + + | Specimen | Performing Laboratory | + + + | | [facility], POINT OF CARE TESTS [address] | | | [place] [address] | + + + CAPILLARY BLOOD GLUCOSE [...] [address] | | | [place] [address] | + + + CBC (HEMOGRAM) ONLY [...] | + + + | Blood | [facility], CORE [address] | | | [place] [address] | + + + + + | [...] | + + + | Blood | [facility], [address]ORE [address] [place] [address] | | | [place] [address] | + + + + + | [...] | | ------ CBC (HEMOGRAM) | | ONLY[[id number]] Abnormal Final | | result Please view [...] | >60 | >60 mL/min | | GEORGIAN | | | + + + + | EGFR NON | >60 | >60 mL/min | | -GEORGIAN | | | + + + + [...] | + + + | Blood | [facility], CORE [address] | | | [place] [address] | + + + + + | [...] [address] | | | [place] [address] | + + + CAPILLARY BLOOD GLUCOSE [...] [address] | | | [place] [address] | + + + URINE, MICROSCOPIC EXAM [...] + | Urine - Clean catch | [facility], CORE [address] | | | [place] [address] | + + + RPR SERUM (10/03/2017 3:36 PM) + + + + | Component | Value | Ref Range | + + + + | RPR SRM QUAL | Non ReactiveComment: Rapid Plasma Reagin | Non Reactive | | | screening test is Non-Reactive. No further | | | | reflex testing is required.Performed by | | | | [employer] [employer],[address] [place] [address] | | | | [phone] egu.Wideo, Gui | | | | MD [place], Lab. Director | | | |www.Wideo, Gui Ervin MD, Lab. Director | | + + + + + + + | Specimen | Performing Laboratory | + + + | Blood | [facility] [address] [facility] | | | [place] [address] | + + + VITAMIN B-12 (10/03/2017 [...] | + + + | Blood | [facility], CORE [address] [facility] | | | [facility] [address] | + + + TSH (10/03/2017 3:36 PM) + + + + | Component | Value | Ref Range | + + + + | TSH | 0.33 (L) | 0.46 - 5.56 mIU/L | + + + + + + + | Specimen | Performing Laboratory | + + + | Blood | [facility], [facility] [address] [facility] [address] | | | [place] [address] | + + + + + | Narrative | + + | TSH reference ranges are influenced by a variety of environmental influences, age, | | gender and ethnicity. The supplied reference limits are based on published values | | utilizing a similar TSH assay, and should be interpreted with caution. | + + HIV-1,2 AB/HIV-1 P24 AG SCRGiuseppe (10/03/2017 3:36 PM) + + + + | Component | Value | Ref Range | + + + + | HIV-1,2 AB/HIV-1 P24 | Negative | Negative | | AG SCREEN | | | + + + + + + + | Specimen | Performing Laboratory | + + + | Blood | [facility], SPECIAL IMM + COA [address] [facility] | | | [place] [address] | + + + + + | Narrative | + + | HIV-1 p24 Ag and HIV-1,2 Ab not detected. Test modified from original | | application tester's approved specifications. The performance of the [employer]ANG[employer] HIV Combo | | test, with or [...] TESTS [address] | | | [place] [address] | + + + CAPILLARY BLOOD GLUCOSE [...] [address] | | | [place] [address] | + + + CBC (HEMOGRAM) ONLY [...] | + + + | Blood | [facility]OR[facility]ORY [facility], CORE [address] [facility] | | | [place] [address] | + + + + + | [...] | + + + | Blood | [facility], CORE [address] [facility] | | | [place] [address] | + + + + + | [...] | | ------ CBC (HEMOGRAM) | | ONLY[[id number]] Abnormal Final | | result Please view [...] | >60 | >60 mL/min | | [place] | | | + + + + | EGFR NON | >60 | >60 mL/min | | -GEORGIAN | | | + + + + [...] | + + + | Blood | [facility], CORE [address] [facility] | | | [place] [address] | + + + + + | [...] + + + | | SELENA PIYUSH [place], POINT OF CARE TESTS [address] | | | [place] [address] | + + + X-RAY SPINE CERVICAL [...] + | | [facility], POINT OF CARE TESTS [address] | | | [place] [address] | + + + 12 LEAD ECG [...] Laboratory | + + + | | [facility] [address] [place] [address] | | | [place] [address] | + + + PROCEDURE NOTE (10/02/2017 [...] Laboratory | + + + | | [facility] RAD[facility] VOICE RECOGNITION 2 | + + + + + | Narrative | + + | EXAM: WA CHEST 1 [...] Note | + + | Service Account, Overtone Res In Interface - 10/02/2017 2:07 PM [...] [address] | | | [place] [address] | + + + X-RAY PORTABLE CHEST 1 VIEW (10/02/2017 8:56 AM) + + + | Specimen | Performing Laboratory | + + + | | [facility] VOICE RECOGNITION 2 | + + + + + | Narrative | + + | EXAM: WA CHEST 1 [...] Preliminary: Marcelo Morley MD Dictation initiated: | Prabhakar Morley MD 10/02/2017 10:20 AM | + + + + | Procedure Note | + + | Service Account, Overtone Res In Interface - 10/02/2017 10:27 AM [...] [address] | | | [place] [address] | + + + CBC (HEMOGRAM) ONLY [...] | + + + | Blood | [facility], CORE [address] [facility] [address] | | | [place] [address] | + + + + + | [...] | + + + | Blood | [facility], CORE [address] [facility] | | | [place] [address] | + + + + + | [...] | | ------ CBC (HEMOGRAM) | | ONLY[[id number]] Abnormal Final | | result Please view [...] | >60 | >60 mL/min | | [place] | | | + + + + | EGFR NON | >60 | >60 mL/min | | -GEORGIAN | | | + + + + [...] | + + + | Blood | [facility], CORE [address] [facility] | | | [place] [address] | + + + + + | [...] [address] | | | [place] [address] | + + + CAPILLARY BLOOD GLUCOSE (NO CHG), POC (10/01/2017 7:31 PM) + +---------+ + | Component | Value | Ref Range | + +---------+ + | BLOOD GLUCOSE, POC | 104 (H) | 70 - 99 mg/dL | + +---------+ + + + + | Specimen | Performing Laboratory | + + + | | [facility] PICKETT [place], POINT OF CARE TESTS [address] | | | [place] [address] | + + + X-RAY ABD LTD [...] [address] | | | [place] [address] | + + + VASC LAB VENOUS DUPLEX LOWER EXTREMITY BILAT COMP (10/01/2017 11:14 AM) + + + | Specimen | Performing Laboratory | + + + | | [facility] RADIOLOGY VASC US | + + [...] Account, Radiant Res In Interface - 10/01/2017 11:34 AM [...] [address] | | | [place] [address] | + + + CBC (HEMOGRAM) ONLY [...] | + + + | Blood | [facility], CORE [address] [facility] [address] | | | [place] [address] | + + + + + | [...] | + + + | Blood | [facility], CORE [address] [place] [address] | | | [place] [address] | + + + + + | [...] | | ------ CBC (HEMOGRAM) | | ONLY[[id number]] Abnormal Final | | result Please view [...] | >60 | >60 mL/min | | [place] | | | + + + + | EGFR NON | >60 | >60 mL/min | | -GEORGIAN | | | + + + + [...] | + + + | Blood | [facility] LABORATORY [facility], CORE [address] [facility] | | | [place] [address] | + + + + + | [...] [address] | | | [place] [address] | + + + CAPILLARY BLOOD GLUCOSE (NO CHG), POC (09/30/2017 6:01 PM) + +---------+ + | Component | Value | Ref Range | + +---------+ + | BLOOD GLUCOSE, POC | 102 (H) | 70 - 99 mg/dL | + +---------+ + + + + | Specimen | Performing Laboratory | + + + | | [facility], POINT OF CARE TESTS [address] | | | [place] [address] | + + + 12 LEAD ECG [...] | + + + | | [facility] [address] [place] [address] | | | [place] [address] | + + + CT HEAD WO [...] + | | [facility] [place], POINT OF CARE TESTS [address] | | | [place] [address] | + + + CAPILLARY BLOOD GLUCOSE [...] [address] | | | [place] [address] | + + + CBC (HEMOGRAM) ONLY [...] | + + + | Blood | [facility]ORY [facility], CORE [address] [facility] | | | [place] [address] | + + + + + | [...] | + + + | Blood | [facility]ORY [facility], CORE [address] [facility] | | | [place] [address] | + + + + + | Narrative | + + | Reference range change effective 8/15/17. | + + CBC ONLY (09/30/2017 4:43 AM) + + + | Specimen | Performing Laboratory | + + + | Blood | | + + + + + | Narrative | + + | The following orders were created for panel order CBC ONLY. | | Procedure | | Abnormality Status | | --------- | | ------ CBC (HEMOGRAM) | | ONLY[[id number]] Abnormal Final | | result Please view [...] | >60 | >60 mL/min | | [place] | | | + + + + | EGFR NON | >60 | >60 mL/min | | -GEORGIAN | | | + + + + [...] | + + + | Blood | [facility], CORE [address] [place] [address] | | | [place] [address] | + + + + + | [...] Laboratory | + + + | | [facility] - [facility], POINT OF CARE TESTS [address] | | | [place] [address] | + + + CAPILLARY BLOOD GLUCOSE [...] [address] | | | [place] [address] | + + + CAPILLARY BLOOD GLUCOSE [...] [address] | | | [place] [address] | + + + 12 LEAD ECG [...] Laboratory | + + + | | [facility] [address] [facility] | | | [place] [address] | + + + CAPILLARY BLOOD GLUCOSE (NO CHG), POC (09/29/2017 6:19 AM) + +---------+ + | Component | Value | Ref Range | + +---------+ + | BLOOD GLUCOSE, POC | 145 (H) | 70 - 99 mg/dL | + +---------+ + + + + | Specimen | Performing Laboratory | + + + | | [facility] - PIYUSH [facility], POINT OF CARE TESTS [address] [facility] | | | [place] [address] | + + + MAGNESIUM, PLASMA (09/29/2017 4:30 AM) + +-------+ + | Component | Value | Ref Range | + +-------+ + | MAGNESIUM,PLASMA | 2.1 | 1.6 - 2.6 mg/dL | + +-------+ + + + + | Specimen | Performing Laboratory | + + + | Blood | [facility], CORE [address] [facility] | | | [place] [address] | + + + + + | [...] | >60 | >60 mL/min | | [place] | | | + + + + | EGFR NON | >60 | >60 mL/min | | -GEORGIAN | | | + + + + [...] | + + + | Blood | [facility], CORE [address] [facility] | | | [place] [address] | + + + + + | [...] | + + + | Blood | [facility], CORE [address] [facility] | | | [place] [address] | + + + + + | [...] | | ------ CBC (HEMOGRAM) | | ONLY[[id number]] Abnormal Final | | result Please view [...] TESTS [address] | | | [place] [address] | + + + CAPILLARY BLOOD GLUCOSE (NO CHG), POC (09/28/2017 5:26 PM) + +---------+ + | Component | Value | Ref Range | + +---------+ + | BLOOD GLUCOSE, POC | 112 (H) | 70 - 99 mg/dL | + +---------+ + + + + | Specimen | Performing Laboratory | + + + | | SELENA PICKETT [place], POINT OF CARE TESTS [address] | | | [place] [address] | + + + CAPILLARY BLOOD GLUCOSE [...] TESTS [address] | | | [place] [address] | + + + 12 LEAD ECG [...] Laboratory | + + + | | [facility] [address] [place] [address] | | | [place] [address] | + + + CAPILLARY BLOOD GLUCOSE [...] TESTS [address] | | | [place] [address] | + + + CBC (HEMOGRAM) ONLY [...] | + + + | Blood | [facility], CORE [address] [facility] [address] | | | [place] [address] | + + + + + | [...] | + + + | Blood | [facility], [facility] [address] [facility] | | | [place] [address] | + + + + + | [...] | | ------ CBC (HEMOGRAM) | | ONLY[[id number]] Abnormal Final | | result Please view [...] | >60 | >60 mL/min | | [place] | | | + + + + | EGFR NON | >60 | >60 mL/min | | -GEORGIAN | | | + + + + [...] | + + + | Blood | [facility]ORY [facility], [facility] [address] [facility] | | | [place] [address] | + + + + + | [...] [address] | | | [place] [address] | + + + CAPILLARY BLOOD GLUCOSE [...] PIYUSH GENAO, POINT OF CARE TESTS [address] | | | [place] [address] | + + + MODIFIED BARIUM SWALLOWING (09/27/2017 1:38 PM) + + + | Specimen | Performing Laboratory | + + + | | [facility] VOICE RECOGNITION 2 | + + [...] Note | + + | Service Account, Pop.itant Res In Interface - 09/27/2017 2:19 PM [...] poorly cleared with dry swallows. Please see [facility] pathology report for full details | | [...] + | | [facility], POINT OF CARE TESTS [address] | | | [place] [address] | + + + CAPILLARY BLOOD GLUCOSE [...] [address] | | | [place] [address] | + + + CBC (HEMOGRAM) ONLY [...] | + + + | Blood | [facility], [address] [address] | | | [place] [address] | + + + + + | [...] | | ------ CBC (HEMOGRAM) | | ONLY[[id number]] Abnormal Final | | result Please view [...] | + + + | Blood | [facility], CORE [address] [place] [address] | | | [place] [address] | + + + + + | [...] | >60 | >60 mL/min | | [place] | | | + + + + | EGFR NON | >60 | >60 mL/min | | -GEORGIAN | | | + + + + [...] | + + + | Blood | [facility], [facility] [address] | | | [place] [address] | + + + + + | [...] [address] | | | [place] [address] | + + + CAPILLARY BLOOD GLUCOSE (NO CHG), POC (09/26/2017 5:32 PM) + +---------+ + | Component | Value | Ref Range | + +---------+ + | BLOOD GLUCOSE, POC | 130 (H) | 70 - 99 mg/dL | + +---------+ + + + + | Specimen | Performing Laboratory | + + + | | [facility] - PIYUSH [place], POINT OF CARE TESTS [address] | | | [place] [address] | + + + 12 LEAD ECG [...] Laboratory | + + + | | [facility] DE[facility] OF CARDIOLOGY [address] [place] [address] | | | [place] [address] | + + + CAPILLARY BLOOD GLUCOSE [...] [address] | | | [place] [address] | + + + CAPILLARY BLOOD GLUCOSE (NO CHG), POC (09/26/2017 9:22 AM) + +---------+ + | Component | Value | Ref Range | + +---------+ + | BLOOD GLUCOSE, POC | 119 (H) | 70 - 99 mg/dL | + +---------+ + + + + | Specimen | Performing Laboratory | + + + | | [facility] POINT OF CARE TESTS [address] | | | [place] [address] | + + + CAPILLARY BLOOD GLUCOSE [...] [address] | | | [place] [address] | + + + CBC (HEMOGRAM) ONLY [...] | + + + | Blood | [facility], [facility] [address] [facility] | | | [place] [address] | + + + + + | [...] | + + + | Blood | [facility], CORE [address] [place] [address] | | | [place] [address] | + + + + + | [...] | | ------ CBC (HEMOGRAM) | | ONLY[[id number]] Abnormal Final | | result Please view [...] | >60 | >60 mL/min | | [place] | | | + + + + | EGFR NON | >60 | >60 mL/min | | -GEORGIAN | | | + + + + [...] | + + + | Blood | [facility], CORE [address] [facility] | | | [place] [address] | + + + + + | [...] + | | [facility], POINT [facility] [address] | | | [place] [address] | + + + MRI BRAIN WWO CONTRAST (09/25/2017 6:54 AM) + + + | Specimen | Performing Laboratory | + + + | | [facility] RAD[facility] VOICE RECOGNITION 2 | + [...] | + + + | Blood | [facility], CORE [address] [facility] | | | [place] [address] | + + + + + | [...] | + + + | Blood | [facility], CORE [address] [facility] | | | [place] [address] | + + + + + | [...] | | ------ CBC (HEMOGRAM) | | ONLY[[id number]] Abnormal Final | | result Please view [...] | >60 | >60 mL/min | | [place] | | | + + + + | EGFR NON | >60 | >60 mL/min | | -GEORGIAN | | | + + + + [...] | + + + | Blood | [facility], CORE [address] [facility] [address] | | | [place] [address] | + + + + + | [...] + | | [facility] OF CARDIOLOGY [address] [place] [address] | | | [place] [address] | + + + MODIFIED BARIUM SWALLOWING [...] Laboratory | + + + | | [facility] RADIOLOGY [facility] US | + + + [...] Note | + + | Service Account, Techpacker In Interface - 09/24/2017 4:09 PM PDT [...] | + + + | Blood | [facility], CORE [address] | | | [place] [address] | + + + + + | [...] | >60 | >60 mL/min | | [place] | | | + + + + | EGFR NON | >60 | >60 mL/min | | -GEORGIAN | | | + + + + [...] | + + + | Blood | [facility], CORE [address] | | | [place] [address] | + + + + + | [...] | + + + | Blood | [facility], CORE [address] | | | [place] [address] | + + + + + | [...] | | ------ CBC (HEMOGRAM) | | ONLY[[id number]] Abnormal Final | | result Please view [...] | + + + | Blood | [facility] LABORATORY [facility], CORE [address] | | | [place] [address] | + + + + + | [...] | + + + | Blood | [facility], CORE [address] | | | [place] [address] | + + + + + | [...] | | ------ CBC (HEMOGRAM) | | ONLY[[id number]] Abnormal Final | | result Please view [...] | >60 | >60 mL/min | | [place]AN | | | + + + + | EGFR NON | >60 | >60 mL/min | | -GEORGIAN | | | + + + + [...] | + + + | Blood | [facility] LABORATORY [facility], [facility] [address] | | | [place] [address] | + + + + + | [...] + | | [facility] PIYUSH [place], POINT OF CARE TESTS [address] | | | [place] [address] | + + + CAPILLARY BLOOD GLUCOSE (NO CHG), POC (09/22/2017 1:29 PM) + +---------+ + | Component | Value | Ref Range | + +---------+ + | BLOOD GLUCOSE, POC | 113 (H) | 70 - 99 mg/dL | + +---------+ + + + + | Specimen | Performing Laboratory | + + + | | [facility] POINT [facility] TESTS [address] | | | [place] [address] | + + + CT HEAD WO [...] Note | + + | Service Account, RadiSingWho Res In Interface - 09/22/2017 4:25 PM [...] | + + + | Blood | [facility], CORE [address] | | | [place] [address] | + + + 12 LEAD ECG [...] Laboratory | + + + | | [facility] [address] [place] [address] | | | [place] [address] | + + + CBC (HEMOGRAM) ONLY [...] | + + + | Blood | [facility] LABORATORY [facility], CORE [address] [facility] | | | [place] [address] | + + + + + | [...] | + + + | Blood | [facility] SERVICES, [facility] [address] [facility] | | | [place] [address] | + + + + + | [...] | >60 | >60 mL/min | | [place]AN | | | + + + + | EGFR NON | >60 | >60 mL/min | | -GEORGIAN | | | + + + + [...] | + + + | Blood | [facility], CORE [address] [facility] | | | [place] [address] | + + + + + | [...] GENAO, POINT OF CARE TESTS [address] | | | [place] [address] | + + + CT HEAD WO [...] | + + + | Blood | [facility], CORE [address] [facility] | | | [place] [address] | + + + + + | [...] | + + + | Blood | [facility] LABOR[facility]ORY [facility], CORE [address] [facility] | | | [place] [address] | + + + + + | [...] | | ------ CBC (HEMOGRAM) | | ONLY[[id number]] Abnormal Final | | result Please view [...] | >60 | >60 mL/min | | [place]AN | | | + + + + | EGFR NON | >60 | >60 mL/min | | -GEORGIAN | | | + + + + [...] | + + + | Blood | [facility], [facility] [address] [facility] [address] | | | [place] [address] | + + + + + | [...] Laboratory | + + + | | [facility] RAD[facility] VOICE RECOGNITION 2 | + [...] Note | + + | Service Account, Techpacker In Interface - 09/20/2017 7:50 PM PDT [...] Laboratory | + + + | | [facility] RAD[facility] VOICE RECOGNITION 2 | + [...] Mega Yeager MD 09/20/2017 6:24 PM Preliminary: Mgea Richardson | | MD Toy | + [...] Yeager MD 09/20/2017 6:24 PM | |Preliminary: eMga eYager MD | + + X-RAY ABD LTD FEEDING TUBE EVAL (09/20/2017 5:19 PM) + + + | Specimen | Performing Laboratory | + + + | | [facility] VOICE RECOGNITION 2 | + [...] Laboratory | + + + | | [facility] VOICE RECOGNITION 2 | + [...] Laboratory | + + + | | [facility] [address] [place] [address] | | | [place] [address] | + + + CBC (HEMOGRAM) ONLY [...] | + + + | Blood | [facility], [address] [facility] | | | [place] [address] | + + + + + | [...] | + + + | Blood | [facility], [address] [facility] | | | [place] [address] | + + + + + | [...] | | ------ CBC (HEMOGRAM) | | ONLY[[id number]] Abnormal Final | | result Please view [...] | >60 | >60 mL/min | | [place] | | | + + + + | EGFR NON | >60 | >60 mL/min | | -GEORGIAN | | | + + + + [...] | + + + | Blood | [facility], [address] [place] [address] | | | [place] [address] | + + + + + | [...] | + + + | Blood | [facility], [address] [facility] | | | [place] [address] | + + + + + | [...] | + + + | Blood | [facility], [address] [facility] | | | [place] [address] | + + + + + | [...] | | ------ CBC (HEMOGRAM) | | ONLY[[id number]] Abnormal Final | | result Please view [...] | >60 | >60 mL/min | | [place] | | | + + + + | EGFR NON | >60 | >60 mL/min | | -[place]GIAN | | | + + + + [...] | + + + | Blood | [facility], [address] [facility] [address] | | | [place] [address] | + + + + + | [...] | + + + | Blood | [facility], [address] | | | [place] [address] | + + + + + | [...] | + + + | Blood | [facility], [address] [facility] | | | [place] [address] | + + + + + | [...] | | ------ CBC (HEMOGRAM) | | ONLY[[id number]] Abnormal Final | | result Please view [...] | >60 | >60 mL/min | | [place] | | | + + + + | EGFR NON | >60 | >60 mL/min | | -[place]GIAN | | | + + + + [...] | + + + | Blood | [facility], [address] [facility] | | | [place] [address] | + + + + + | [...] Laboratory | + + + | | [facility] | + + + + [...] Note | + + | Service Account, [employer] In Interface - 09/17/2017 11:53 AM PDT [...] | + + + | Blood | [facility], [address] [facility] | | | [place] [address] | + + + + + | [...] | + + + | Blood | [facility], [address] | | | [place] [address] | + + + + + | [...] | | ------ CBC (HEMOGRAM) | | ONLY[[id number]] Abnormal Final | | result Please view [...] | >60 | >60 mL/min | | [place] | | | + + + + | EGFR NON | >60 | >60 mL/min | | -GE[place]GIAN | | | + + + + [...] | + + + | Blood | [facility], [address] [facility] | | | [place] [address] | + + + + + | [...] | Narrative | + + | EXAM: WA CHEST PICC [...] Note | + + | Service Account, [employer] Res In Interface - 09/16/2017 1:34 PM [...] Laboratory | + + + | | [facility] VOICE RECOGNITION | + + + + + | Narrative | + + | EXAM: WA CHEST PICC [...] Note | + + | Service Account, Overtone Res In Interface - 09/16/2017 11:41 AM [...] | + + + | Blood | [facility], CORE [address] [place] [address] | | | [place] [address] | + + + + + | [...] | + + + | Blood | [facility], CORE [address] [facility] | | | [place] [address] | + + + + + | [...] | | ------ CBC (HEMOGRAM) | | ONLY[[id number]] Abnormal Final | | result Please view [...] | >60 | >60 mL/min | | [place]AN | | | + + + + | EGFR NON | >60 | >60 mL/min | | -GEORGIAN | | | + + + + [...] | + + + | Blood | [facility], CORE [address] [place] [address] | | | [place] [address] | + + + + + | [...] Laboratory | + + + | | [facility] VOICE RECOGNITION | + + + + + | Narrative | + + | EXAM: WA CHEST 1 VIEW HISTORY: COMPARISON: None. FINDINGS: [...] Laboratory | + + + | | [facility] RAD[facility] VOICE RECOGNITION | + + + + + | Narrative | + + | EXAM: WA CHEST PICC [...] Adal, Radiant Res In Interface - 09/15/2017 6:43 [...] | Procedure Note Indications:TPN Procedure location: Unit:[facility] Room: [facility] Providers: | | Attending name: Attending physically [...] A pause verifies correct patient, procedure, equipment, technical support manager and | | site/side marked as required. [...] Arm area Basilic vein. Catheter lot number: [id number] with a length of 55 cm | [...] Laboratory | + + + | | [facility] RAD[facility] VOICE RECOGNITION | + + [...] | + + + | Blood | [facility]ORY [facility], [address]ORE [address] | | | [place] [address] | + + + + + | [...] | + + + | Blood | [facility], CORE [address] [place] [address] | | | [place] [address] | + + + + + | [...] | | ------ CBC (HEMOGRAM) | | ONLY[[id number]] Abnormal Final | | result Please view [...] | >60 | >60 mL/min | | [place]AN | | | + + + + | EGFR NON | >60 | >60 mL/min | | -GEORGIAN | | | + + + + [...] | + + + | Blood | [facility], CORE [address] [facility] | | | [place] [address] | + + + + + | [...] Laboratory | + + + | | [facility] RAD[facility] VOICE RECOGNITION | + + [...] | + + + | Blood | [facility], CORE [address] [facility] | | | [place] [address] | + + + + + | [...] | + + + | Blood | [facility], [facility] [address] [facility] [address] | | | [place] [address] | + + + + + | [...] | | ------ CBC (HEMOGRAM) | | ONLY[[id number]] Abnormal Final | | result Please view [...] | >60 | >60 mL/min | | [place] | | | + + + + | EGFR NON | >60 | >60 mL/min | | -GEORGIAN | | | + + + + [...] | + + + | Blood | [facility], CORE [address] [facility] | | | [place] [address] | + + + + + | [...] | + + + | Blood | [facility], CORE [address] [facility] | | | [place] [address] | + + + + + | [...] | + + + | Blood | [facility], CORE [address] [facility] | | | [place] [address] | + + + + + | [...] | | ------ CBC (HEMOGRAM) | | ONLY[[id number]] Abnormal Final | | result Please view [...] | >60 | >60 mL/min | | [place] | | | + + + + | EGFR NON | >60 | >60 mL/min | | -GEORGIAN | | | + + + + [...] | + + + | Blood | [facility], [facility] [address] [address] | | | [place] [address] | + + + + + | [...] Laboratory | + + + | | [facility] RAD[facility] VOICE RECOGNITION | + + [...] Note | + + | Service Account, Overtone Res In Interface - 09/12/2017 9:13 AM [...] | + + + | Blood | [facility], CORE [address] [facility] | | | [place] [address] | + + + + + | [...] | + + + | Blood | [facility], CORE [address] [address] | | | [place] [address] | + + + + + | [...] | | ------ CBC (HEMOGRAM) | | ONLY[[id number]] Abnormal Final | | result Please view [...] | >60 | >60 mL/min | | [place] | | | + + + + | EGFR NON | >60 | >60 mL/min | | -GEORGIAN | | | + + + + [...] | + + + | Blood | [facility], CORE [facility] | | | [place] [address] | + + + + + | [...] Laboratory | + + + | | [facility] RADIOLOGY VOICE RECOGNITION | + + + [...] | + + + | Blood | [facility], CORE [address] [facility] | | | [place] [address] | + + + + + | [...] | + + + | Blood | [facility], CORE [address] | | | [place] [address] | + + + + + | [...] | | ------ CBC (HEMOGRAM) | | ONLY[[id number]] Abnormal Final | | result Please view [...] | >60 | >60 mL/min | | [place] | | | + + + + | EGFR NON | >60 | >60 mL/min | | -GEORGIAN | | | + + + + [...] | + + + | Blood | [facility], [address] | | | [place] [address] | + + + + + | [...] | + + + | Blood | [facility], CORE [address] | | | [place] [address] | + + + X-RAY ABD LTD FEEDING TUBE EVAL (09/10/2017 12:44 PM) + + + | Specimen | Performing Laboratory | + + + | | [facility] RADI[facility] VOICE RECOGNITION 2 | + [...] Note | + + | Service Account, RadiSingWho Res In Interface - 09/10/2017 2:08 PM [...] Laboratory | + + + | | [facility] US | + + + + [...] Note | + + | Service Account, Techpacker In Interface - 09/10/2017 2:31 PM PDT [...] Laboratory | + + + | | [facility] RAD[facility] VOICE RECOGNITION | + + + + + | Narrative | + + | STUDY: WA CHEST 1 [...] | + + + | Blood | [facility], CORE [address] [facility] | | | [place] [address] | + + + AMYLASE, PLASMA (09/10/2017 5:08 AM) + +-------+ + | Component | Value | Ref Range | + +-------+ + | AMYLASE,PLASMA | 58 | 25 - 115 U/L | + +-------+ + + + + | Specimen | Performing Laboratory | + + + | Blood | [facility], CORE [address] [facility] | | | [place] [address] | + + + CBC (HEMOGRAM) ONLY [...] | + + + | Blood | [facility], CORE [address] [place] [address] | | | [place] [address] | + + + + + | [...] | + + + | Blood | [facility], CORE [address] [facility] | | | [place] [address] | + + + + + | [...] | | ------ CBC (HEMOGRAM) | | ONLY[[id number]] Abnormal Final | | result Please view [...] | >60 | >60 mL/min | | [place]AN | | | + + + + | EGFR NON | >60 | >60 mL/min | | -GEORGIAN | | | + + + + [...] | + + + | Blood | [facility], [address] [facility] [address] | | | [place] [address] | + + + + + | [...] Laboratory | + + + | | [facility] [address] [place] [address] | | | [place] [address] | + + + X-RAY ABD LTD [...] MD 09/10/2017 11:11 AM | |Created by: dEelmira Parsons MD | + + CAPILLARY BLOOD [...] TESTS [address] | | | [place] [address] | + + + MAGNESIUM, PLASMA (09/09/2017 3:50 AM) + +-------+ + | Component | Value | Ref Range | + +-------+ + | MAGNESIUM,PLASMA | 2.0 | 1.6 - 2.6 mg/dL | + +-------+ + + + + | Specimen | Performing Laboratory | + + + | Blood | [facility]ORY [facility], CORE [address] [facility] | | | [place] [address] | + + + + + | [...] | + + + | Blood | [facility], CORE [address] [place] [address] | | | [place] [address] | + + + + + | [...] | | ------ CBC (HEMOGRAM) | | ONLY[[id number]] Abnormal Final | | result Please view [...] | >60 | >60 mL/min | | [place] | | | + + + + | EGFR NON | >60 | >60 mL/min | | -GEORGIAN | | | + + + + [...] | + + + | Blood | [facility], CORE [address] | | | [place] [address] | + + + + + | [...] | + + + | Blood | [facility], CORE [address] [place] [address] | | | [place] [address] | + + + + + | [...] | >60 | >60 mL/min | | [place] | | | + + + + | EGFR NON | >60 | >60 mL/min | | -GEORGIAN | | | + + + + [...] | + + + | Blood | [facility], CORE [address] | | | [place] [address] | + + + + + | [...] | | ------ CBC (HEMOGRAM) | | ONLY[[id number]] Abnormal Final | | result Please view [...] | + + + | Blood | [facility], CORE [address] [facility] | | | [place] [address] | + + + LIVER SET (AST,ALT,BILI [...] | + + + | Blood | [facility], CORE [address] | | | [place] [address] | + + + X-RAY ABD LTD FEEDING TUBE EVAL (09/08/2017 4:38 AM) + + + | Specimen | Performing Laboratory | + + + | | [facility] RAD[facility] VOICE RECOGNITION | + + + + + | Narrative | + + | EXAM: ABD LTD FEEDING TUBE KAREEMAL 09/08/17 04:04:50 COMPARISON: 09/06/17 | | FINDINGS: [...] | + + + | | [facility] [address] [place] [address] | | | [place] [address] | + + + X-RAY PORTABLE CHEST 1 VIEW (09/07/2017 6:12 AM) + + + | Specimen | Performing Laboratory | + + + | | [facility] RAD[facility] VOICE RECOGNITION | + + + + + | Narrative | + + | EXAM: WA CHEST 1 VIEW HISTORY: Post extubation COMPARISON: 09/05/17 | | FINDINGS: Interval extubation. Enteric tube has been replaced with weighted tip | | Santiago, incompletely imaged. C. collar remains in place. [...] | + + + | Blood | [facility], [facility] [address] [facility] [address] | | | [place] [address] | + + + + + | [...] | >60 | >60 mL/min | | [place]AN | | | + + + + | EGFR NON | >60 | >60 mL/min | | -GEORGIAN | | | + + + + [...] | + + + | Blood | [facility], [facility] [address] | | | [place] [address] | + + + + + | [...] | + + + | Blood | [facility], CORE [address] [facility] | | | [place] [address] | + + + + + | [...] | | ------ CBC (HEMOGRAM) | | ONLY[[id number]] Abnormal Final | | result Please view results for these tests on the | | individual orders. | + + X-RAY ABD LTD FEEDING TUBE EVAL (09/06/2017 8:04 PM) + + + | Specimen | Performing Laboratory | + + + | | [facility] RAD[facility] VOICE RECOGNITION | + + [...] | Narrative | + + | EXAM: EL LTD FEEDING TUBE EVAL 09/06/17 18:14:00 COMPARISON: [...] - 09/07/2017 10:46 AM PDT EXAM: EL PEÑA | | FEEDING TUBE EVAL 05/11/18 18:14:00 COMPARISON: NoneFINDINGS: Feeding tube has been [...] Laboratory | + + + | | [facility] [address] [place] [address] | | | [place] [address] | + + + PROCEDURE NOTE (09/06/2017 [...] on the 1st attempt. Midline lot number [id number]; there was positive blood | | return. [...] | >60 | >60 mL/min | | [place]AN | | | + + + + | EGFR NON | >60 | >60 mL/min | | -GEORGIAN | | | + + + + [...] | + + + | Blood | [facility], CORE [address] [facility] | | | [place] [address] | + + + + + | [...] | + + + | Blood | [facility], CORE [address] [facility] | | | [place] [address] | + + + + + | [...] | Narrative | + + | EXAM: WA CHEST 1 [...] Note | + + | Service Account, Techpacker In Interface - 09/05/2017 10:16 AM PDT [...] | + + + | Blood | [facility], CORE [address] [facility] | | | [place] [address] | + + + MAGNESIUM, PLASMA (09/05/2017 3:54 AM) + +-------+ + | Component | Value | Ref Range | + +-------+ + | MAGNESIUM,PLASMA | 1.8 | 1.6 - 2.6 mg/dL | + +-------+ + + + + | Specimen | Performing Laboratory | + + + | Blood | [facility], CORE [address] [facility] | | | [place] [address] | + + + + + | [...] | | ------ CBC (HEMOGRAM) | | ONLY[[id number]] Abnormal Final | | result Please view [...] | >60 | >60 mL/min | | [place] | | | + + + + | EGFR NON | >60 | >60 mL/min | | -GEORGIAN | | | + + + + [...] | + + + | Blood | [facility], CORE [address] [facility] | | | [place] [address] | + + + + + | [...] | >60 | >60 mL/min | | [place] | | | + + + + | EGFR NON | >60 | >60 mL/min | | -GEORGIAN | | | + + + + [...] | + + + | Blood | [facility], CORE [address] [facility] | | | [place] [address] | + + + + + | [...] tomorrow morning. CB Henson Pager / ID: [phone] | + + CULTURE, SPUTUM (09/04/2017 1:17 PM) + + + | Specimen | Performing Laboratory | + + + | Sputum - | [facility] [place] [address] [place] | | Endotracheal tube | [address] | | tip | | + + [...] + | Urine - Catheter - | [facility], CORE [address] [facility] | | indwelling | [place] [address] | + + + TITO COLE ONLY (09/04/2017 1:17 PM) + + + [...] + | SPECIFIC GRAVITY | 1.011Comment: Specific Wy[place] performed by | 1.005 - 1.030 | | | refractometry | | + + + + + + + | Specimen | Performing Laboratory | + + + | Urine - Catheter - | [facility], CORE [address] | | indwelling | [facility] [place] [address] | + + + CULTURE, BLOOD BACTI & YEAST [facility] (09/04/2017 1:16 PM) + + + + | Component | Value | Ref Range | + + + + | CULTURE RESULT | Final Report:No Bacteria or Yeast isolated | | | | at 5 days. | | + + + + + + + | Specimen | Performing Laboratory | + + + | Blood - Arterial | [facility], CORE [address] [place] [address] | | line | [place] [address] | + + + CULTURE, BLOOD BACTI [...] + + | Blood - Peripheral | [facility], CORE [address] [facility] | | | [place] [address] | + + + CULTURE, BLOOD BACTI [...] ------ CULTURE, BLOOD | | BACTI & Y...[[id number]] Final | | result Please view results [...] ------ CULTURE, BLOOD | | BACTI & Y...[[id number]] Final | | result Please view results [...] | + + + | | [facility] [address] [place] [address] | | | [place] [address] | + + + X-RAY PORTABLE CHEST 1 VIEW (09/04/2017 7:04 AM) + + + | Specimen | Performing Laboratory | + + + | | [facility] VOICE RECOGNITION | + + + + + | Narrative | + + | EXAM: WA CHEST 1 VIEW HISTORY: Hypoxia. Intubated. COMPARISON: [...] Note | + + | Service Account, Overtone Res In Interface - 09/04/2017 9:49 AM [...] | + + + | Blood | [facility], CORE [address] [facility] | | | [place] [address] | + + + CBC (HEMOGRAM) ONLY [...] | + + + | Blood | [facility], CORE [address] [place] [address] | | | [place] [address] | + + + RENAL FUNCTION SET [...] | >60 | >60 mL/min | | [place]GIAN | | | + + + + | EGFR NON | >60 | >60 mL/min | | -GEORGIAN | | | + + + + [...] | + + + | Blood | [facility], CORE [address] [facility] | | | [place] [address] | + + + + + | [...] | + + + | Blood | [facility], CORE [address] [facility] | | | [place] [address] | + + + + + | [...] | | ------ CBC (HEMOGRAM) | | ONLY[[id number]] Abnormal Final | | result Please view [...] [address] | | | [place] [address] | + + + CAPILLARY BLOOD GLUCOSE (NO CHG), POC (09/04/2017 12:17 AM) + +-------+ + | Component | Value | Ref Range | + +-------+ + | BLOOD GLUCOSE, POC | 72 | 70 - 99 mg/dL | + +-------+ + + + + | Specimen | Performing Laboratory | + + + | | [facility], POINT OF CARE TESTS [address] | | | [place] [address] | + + + CAPILLARY BLOOD GLUCOSE [...] [address] | | | [place] [address] | + + + CAPILLARY BLOOD GLUCOSE [...] [address] | | | [place] [address] | + + + VASC LAB VENOUS DUPLEX LOWER EXTREMITY BILAT COMP (09/03/2017 9:51 AM) + + + | Specimen | Performing Laboratory | + + + | | [facility] RAD[facility] VASC US | + + [...] Note | + + | Service Account, Overtone Res In Interface - 09/03/2017 10:27 AM [...] + + + | Sputum - | [facility] [address] [place], [place] | | Expectorated | [id number] | + + + + + | [...] | + + + | Blood | [facility], CORE [address] [facility] | | | [place] [address] | + + + X-RAY ABD LTD FEEDING TUBE EVAL (09/03/2017 4:32 AM) + + + | Specimen | Performing Laboratory | + + + | | [facility] RAD[facility] VOICE RECOGNITION | + + [...] Note | + + | Service Account, Techpacker In Interface - 09/03/2017 9:54 AM PDT [...] + + + | Sputum - | [facility] [address] [place] | | Expectorated | [id number] | + + + + + | [...] | + + + | Blood | [facility], CORE [address] [place] [address] | | | [place] [address] | + + + CBC (HEMOGRAM) ONLY [...] | + + + | Blood | [facility], CORE [address] [place] [address] | | | [place] [address] | + + + RENAL FUNCTION SET [...] | >60 | >60 mL/min | | [place]AN | | | + + + + | EGFR NON | >60 | >60 mL/min | | -GEORGIAN | | | + + + + [...] | + + + | Blood | [facility], CORE [address] [facility] | | | [place] [...] | + + + | Blood | [facility], CORE [address] [facility] | | | [place] [address] | + + + + + | [...] | | ------ CBC (HEMOGRAM) | | ONLY[[id number]] Abnormal Final | | result Please view results for these tests on the | | individual orders. | + + OPERATION RECORD (09/02/2017 6:53 PM) + + | Procedure Note | + + | Fidelina Shields MD - 09/02/2017 6:53 PM PDT Date of Service: 09/02/2017 | | Attending Surgeon: Fidelina Shields MD Machine Bookkeeper(s): | | Ajay Garcia MD, resident. Preoperative [...] ICU in stable condition.Ajay Garcia, | | MDMackyinka Shields MDTBK/MODLDD: 09/02/2017 18:15:29DT: 09/02/2017 18:53:52Job #: | | [id number] to federal Medicare and Medicaid regulations I was present for | | the entire procedure.Fidelina Shields MDAssistant ProfessorDepartment of SurgeryOffice: | | [phone]: [phone] has been electronically signed by Fidelina Shields MD, | | 09/03/2017 at 9:11 AM. | | | | | |Fidelina Shields MD | |Wool Hat Finisher | |Department of Surgery | |Office: [phone] | |Pager: [phone] | | | |This has been electronically [...] | + + + | Blood | [facility], CORE [address] [facility] | | | [place] [address] | + + + BLOOD GASES, ARTERIAL [...] | + + + | Blood | [facility], CORE [address] [facility] | | | [place] [address] | + + + CULTURE, AFB (ALL SPEC TYPES EXCEPT BLOOD) (09/02/2017 5:10 PM) + + + | Specimen | Performing Laboratory | + + + | Sputum - | [facility] [place] [address], [place] | | Expectorated | [phone] | + + + + + | [...] | + + + | Blood | [facility], CORE [address] | | | [place] [address] | + + + + + | [...] | >60 | >60 mL/min | | [place] | | | + + + + | EGFR NON | >60 | >60 mL/min | | -GEORGIAN | | | + + + + [...] | + + + | Blood | [facility] [address] | | | [place] [address] | + + + + + | [...] Laboratory | + + + | | [facility] RADIOLOG[facility] VOICE RECOGNITION | + + [...] Note | + + | Service Account, Techpacker In Interface - 09/02/2017 4:25 PM PDT [...] surgical contact: INGRID Zhang | | Beckie, Yolanda Surgery [id number] Pursuant to federal Medicare and Medicaid regulations I | | was present for the entire procedure. Fidelina Shields MD Machine Bookkeeper | | Professor Department of Surgery Office: [phone] Pager: [phone] This has been | | electronically signed [...] | + + + | Blood | [facility], CORE [address] | | | [place] [address] | + + + INR (09/02/2017 9:39 AM) + + + + | Component | Value | Ref Range | + + + + | INR | 1.26 (H) | 0.90 - 1.20 INR | + + + + + + + | Specimen | Performing Laboratory | + + + | Blood | [facility], [facility] [address] | | | [place] [address] | + + + + + | [...] | | Attending Surgeon: Fidelina Shields MD Machine Bookkeeper(s): Haim Peralta MD. | | Ajay Garcia [...] 09/02/2017 06:17:53DT: 09/02/2017 | | 06:51:37Job #: [id number] to federal Medicare and Medicaid regulations I | | was present for the entire procedure.Fidelina Tenorio ProfessorDepartment of | | SurgeryOffice: [phone]: [id number] has been electronically signed by Fidelina Radford | MD Cornelius, 09/02/2017 at 10:40 AM. | | | | | |Pursuant to federal Medicare and Medicaid regulations I was present for the entire procedur e. | | | | | | | |Fidelina Shields MD | |Wool Hat Finisher | |Department of Surgery | |Office: [phone] | |Pager: [phone] | | | |This has been electronically [...] | + + + | Blood | [facility], CORE [address] | | | [place] [address] | + + + HEMATOCRIT (09/02/2017 5:16 AM) + + + + | Component | Value | Ref Range | + + + + | HEMATOCRIT | 34.0 (L) | 41.0 - 53.0 % | + + + + + + + | Specimen | Performing Laboratory | + + + | Blood | [facility], [place] [address] [place] [address] | | | [place] [address] | + + + PRODUCT - RED CELLS LEUKOREDUCED (09/02/2017 2:53 AM) + + + + | Component | Value | Ref Range | + + + + | PRODUCT DESCRIPTION | -1 RED BLOOD CELL ADENINE-SALINE ADDED | | | | LEUKOCYTE | | + + + + | PRODUCT UNIT # | [id number] | | + + + + | UNIT ABO | O | | + + + + | UNIT RH | POS | | + + + + | STATUS OF UNIT | Presumed Transfused | | + + + + | EXPIRATION DATE | [id number] | | + + + + | BLOOD TYPE BARCODE | 5100 | | + + + + | BLOOD PRODUCT CODE | [id number] | | + + + + + + + | Specimen | Performing Laboratory | + + + | | [facility], TRANSFUSION MEDICINE [address] [place] [address] | | | [place] [address] | + + + CT PELVIS WO IV CONTRAST (09/02/2017 1:45 AM) + + + | Specimen | Performing Laboratory | + + + | | [facility] RAD[facility] VOICE RECOGNITION | + + [...] Note | + + | Service Account, [employer] In Interface - 09/02/2017 11:22 AM [...] | + + + | Blood | [facility], CORE [address] | | | [place] [address] | + + + RENAL FUNCTION SET [...] | >60 | >60 mL/min | | GEORGIAN | | | + + + + | EGFR NON | >60 | >60 mL/min | | -GEORGIAN | | | + + + + [...] | + + + | Blood | [facility] [address] | | | [place] [address] | + + + + + | [...] | + + + | Blood | [facility], CORE [address] [facility] [address] | | | [place] [address] | + + + + + | [...] | | ------ CBC (HEMOGRAM) | | ONLY[[id number]] Abnormal Final | | result Please view [...] | | (http://www.cdc.gov/mmwr/preview/mmwrhtml/r | | | | [id number].htm), for information concerning | | | | test performance in low-prevalence | | | | populations and use in occupational | | | | screening. | | + + + + | NIL | 0.05Comment: Performed by [facility] | IU/mL | | | Laboratories, | | | | [address], | | | | [place] [address] | | | | [phone] | | | | [email or web address] Ervin MD - | | | | Lab. Director | | + + + + | TB AG-NIL | 0.26 | 0.00 - 0.34 IU/mL | + + + + | MITOGEN-NIL | 9.35 | IU/mL | + + + + + + + | Specimen | Performing Laboratory | + + + | Blood | [facility] [place] [address] [place], [place] | | | [address] | + + + LACTATE (09/01/2017 8:18 PM) + +-------+ + | Component | Value | Ref Range | + +-------+ + | LACTATE | 1.6 | mmol/L | + +-------+ + + + + | Specimen | Performing Laboratory | + + + | Blood | [facility], CORE [address] | | | [place] [address] | + + + + + | [...] | + + + | Blood | [facility], CORE [address] | | | [place] [address] | + + + X-RAY KNEE 2 VIEWS LEFT (09/01/2017 7:48 PM) + + + | Specimen | Performing Laboratory | + + + | | [facility] VOICE RECOGNITION | + + [...] Laboratory | + + + | | [facility] RAD[facility] VOICE RECOGNITION | + + + + + | Narrative | + + | EXAM: WA CHEST 1 [...] | + + + | Blood | [facility], CORE [address] | | | [place] [address] | + + + HEMATOCRIT (09/01/2017 5:43 PM) + + + + | Component | Value | Ref Range | + + + + | HEMATOCRIT | 34.1 (L) | 41.0 - 53.0 % | + + + + + + + | Specimen | Performing Laboratory | + + + | Blood | [facility], CORE [address] [place] [address] | | | [place] [address] | + + + PRODUCT - PLATELET PHERESIS LEUKOREDUCED (09/01/2017 4:42 PM) + + + + | Component | Value | Ref Range | + + + + | PRODUCT DESCRIPTION | PLATELETS PHERESIS LEUKOCYTE REDUCED | | + + + + | PRODUCT UNIT # | [id number] | | + + + + | UNIT ABO | O | | + + + + | UNIT RH | POS | | + + + + | STATUS OF UNIT | Presumed Transfused | | + + + + | EXPIRATION DATE | [id number] | | + + + + | BLOOD TYPE BARCODE | | | + + + + | BLOOD PRODUCT CODE | [id number] | | + + + + + + + | Specimen | Performing Laboratory | + + + | | [facility], TRANSFUSION MEDICINE [address] [place] [address] | | | [place] [address] | + + + BLOOD GASES, ARTERIAL [...] | + + + | Blood | [facility], CORE [address] | | | [place] [address] | + + + LACTATE (09/01/2017 4:19 PM) + +-------+ + | Component | Value | Ref Range | + +-------+ + | LACTATE | 1.6 | mmol/L | + +-------+ + + + + | Specimen | Performing Laboratory | + + + | Blood | [facility], CORE [address] | | | [place] [address] | + + + + + | [...] | + + + | Blood | [facility], CORE [address] | | | [place] [address] | + + + COMPLETE METABOLIC SET [...] | >60 | >60 mL/min | | [place]GIAN | | | + + + + | EGFR NON | >60 | >60 mL/min | | -GEORGIAN | | | + + + + [...] | + + + | Blood | [facility], CORE [address] | | | [place] [address] | + + + + + | [...] | | ------ CBC (HEMOGRAM) | | ONLY[[id number]] Abnormal Final | | result Please view [...] | + + + | Blood | [facility], CORE [address] | | | [place] [address] | + + + + + | [...] | + + + | Blood | [facility], CORE [address] | | | [place] [address] | + + + + + | [...] micropuncture access set was exchanged for a LitRes | | wire. Under fluoroscopic guidance, a 5 Fr flush catheter was used to evaluate the | | distal abdominal aorta and pelvic vasculature. A wire and catheter were then used to | | select the left common and internal iliac arteries from the right TAX CLERK approach. DSA | | was performed from [...] micropuncture access set was exchanged for a LitRes wire. Under fluoroscopic guidance, | | a 5 Fr flush catheter was used to evaluate the distal abdominal aorta and pelvic | | vasculature. A wire and catheter were then used to select the left common and internal | | iliac arteries from the right TAX CLERK approach. DSA was performed from the [...] micropuncture access set was exchanged for a LitRes wire. Under fluoroscopic guidance, a 5 Fr flush catheter was used | |to evaluate the distal abdominal aorta and pelvic vasculature. A wire and catheter were th en used to select the left common and internal iliac arteries from the right TAX CLERK approach. DSA was performed from the [...] | + + + | Blood | [facility], POINT [facility]ARE TESTS [address] | | | [place] [address] | + + + EXPLORATORY LAPAROTOMY (09/01/2017 12:31 PM) + + | Narrative | + + | Fidelina Shields MD 09/01/2017 12:42 PM BRIEF OPERATIVE NOTE: | | Date: 09/01/2017 Author: Fidelina hSields MD Attending Physician: | | Fidelina Shields MD Machine Bookkeeper(s): Haim Peralta MD, Glo Olmos MD | | PatitoNoé MS3 Prior to the [...] the case. | | Fidelina Shields MD Wool Hat Finisher Division of Trauma, Critical Care and | | Acute Care Surgery Office: [phone] Pager: [phone] | + + ABG-FULL ABL, POC (09/01/2017 [...] [address] | | | [place] [address] | + + + CREATININE, BODY FLUID (09/01/2017 11:52 AM) + +-------+ + | Component | Value | Ref Range | + +-------+ + | CREATININE BODY | 0.60 | mg/dL | | FLUID | | | + +-------+ + + + + | Specimen | Performing Laboratory | + + + | Fluid - Abdominal | [facility], CORE [address] | | | [place], [place] [address] | + + + + + | [...] | [facility] CARE [facility] [address] | | | [place] [address] | + + + PRODUCT - PLATELET PHERESIS LEUKOREDUCED (09/01/2017 9:56 AM) + + + + | Component | Value | Ref Range | + + + + | PRODUCT DESCRIPTION | PLATELETS PHERESIS LEUKOCYTES REDUCED | | + + + + | PRODUCT UNIT # | [id number] | | + + + + | UNIT ABO | A | | + + + + | UNIT RH | POS | | + + + + | STATUS OF UNIT | Returned to Blood Bank | | + + + + | EXPIRATION DATE | [id number] | | + + + + | BLOOD TYPE BARCODE | 6200 | | + + + + | BLOOD PRODUCT CODE | [id number] | | + + + + + + + | Specimen | Performing Laboratory | + + + | | [facility], TRANSF[facility]ION MEDICINE [address] [facility] | | | [place] [address] | + + + PRODUCT - FRESH FROZEN PLASMA (09/01/2017 9:53 AM) + + + + | Component | Value | Ref Range | + + + + | PRODUCT DESCRIPTION | LIQUID PLASMA, IRRADIATED | | + + + + | PRODUCT UNIT # | [id number] | | + + + + | UNIT ABO | A | | + + + + | UNIT RH | POS | | + + + + | STATUS OF UNIT | Returned to Blood Bank | | + + + + | EXPIRATION DATE | [id number] | | + + + + | BLOOD TYPE BARCODE | 6200 | | + + + + | BLOOD PRODUCT CODE | [id number] | | + + + + + + + | Specimen | Performing Laboratory | + + + | | [facility], TRANSF[facility]ION MEDICINE [address] [facility] | | | [place] [address] | + + + PRODUCT - FRESH FROZEN PLASMA (09/01/2017 9:53 AM) + + + + | Component | Value | Ref Range | + + + + | PRODUCT DESCRIPTION | LIQUID PLASMA, IRRADIATED | | + + + + | PRODUCT UNIT # | [id number] | | + + + + | UNIT ABO | A | | + + + + | UNIT RH | POS | | + + + + | STATUS OF UNIT | Returned to Blood Bank | | + + + + | EXPIRATION DATE | [id number] | | + + + + | BLOOD TYPE BARCODE | 6200 | | + + + + | BLOOD PRODUCT CODE | [id number] | | + + + + + + + | Specimen | Performing Laboratory | + + + | | [facility], TRANSF[facility]ION MEDICINE [address] [facility] | | | [place] [address] | + + + PRODUCT - RED CELLS LEUKOREDUCED (09/01/2017 9:49 AM) + + + + | Component | Value | Ref Range | + + + + | PRODUCT DESCRIPTION | -3 RED BLOOD CELLS ADENINE-SALINE ADDED | | | | LEUKOCY | | + + + + | PRODUCT UNIT # | [id number] | | + + + + | UNIT ABO | O | | + + + + | UNIT RH | POS | | + + + + | STATUS OF UNIT | Returned to Blood Bank | | + + + + | EXPIRATION DATE | [id number] | | + + + + | BLOOD TYPE BARCODE | 5100 | | + + + + | BLOOD PRODUCT CODE | [id number] | | + + + + + + + | Specimen | Performing Laboratory | + + + | | [facility], TRANSFUSION MEDICINE [address] | | | [place] [address] | + + + PRODUCT - RED CELLS LEUKOREDUCED (09/01/2017 9:49 AM) + + + + | Component | Value | Ref Range | + + + + | PRODUCT DESCRIPTION | -3 RED BLOOD CELLS ADENINE-SALINE ADDED | | | | LEUKOCY | | + + + + | PRODUCT UNIT # | [id number] | | + + + + | UNIT ABO | O | | + + + + | UNIT RH | POS | | + + + + | STATUS OF UNIT | Returned to Blood Bank | | + + + + | EXPIRATION DATE | [id number] | | + + + + | BLOOD TYPE BARCODE | 5100 | | + + + + | BLOOD PRODUCT CODE | [id number] | | + + + + + + + | Specimen | Performing Laboratory | + + + | | [facility], TRANSFUSION MEDICINE [address] | | | [place] [address] | + + + PRODUCT - RED CELLS LEUKOREDUCED (09/01/2017 9:49 AM) + + + + | Component | Value | Ref Range | + + + + | PRODUCT DESCRIPTION | -1 RED BLOOD CELL ADENINE-SALINE ADDED | | | | LEUKOCYTE | | + + + + | PRODUCT UNIT # | [id number] | | + + + + | UNIT ABO | O | | + + + + | UNIT RH | POS | | + + + + | STATUS OF UNIT | Returned to Blood Bank | | + + + + | EXPIRATION DATE | [id number] | | + + + + | BLOOD TYPE BARCODE | 5100 | | + + + + | BLOOD PRODUCT CODE | [id number] | | + + + + + + + | Specimen | Performing Laboratory | + + + | | [facility], TRANSFUSION MEDICINE [address] [place] [address] | | | [place] [address] | + + + PRODUCT - RED CELLS LEUKOREDUCED (09/01/2017 9:49 AM) + + + + | Component | Value | Ref Range | + + + + | PRODUCT DESCRIPTION | -1 RED BLOOD CELL ADENINE-SALINE ADDED | | | | LEUKOCYTE | | + + + + | PRODUCT UNIT # | [id number] | | + + + + | UNIT ABO | O | | + + + + | UNIT RH | POS | | + + + + | STATUS OF UNIT | Returned to Blood Bank | | + + + + | EXPIRATION DATE | [id number] | | + + + + | BLOOD TYPE BARCODE | 5100 | | + + + + | BLOOD PRODUCT CODE | [id number] | | + + + + + + + | Specimen | Performing Laboratory | + + + | | [facility], TRANSFUSION MEDICINE [address] [facility] | | | [place] [address] | + + + PRODUCT - RED CELLS LEUKOREDUCED (09/01/2017 9:49 AM) + + + + | Component | Value | Ref Range | + + + + | PRODUCT DESCRIPTION | -1 RED BLOOD CELL ADENINE-SALINE ADDED | | | | LEUKOCYTE | | + + + + | PRODUCT UNIT # | [id number] | | + + + + | UNIT ABO | O | | + + + + | UNIT RH | POS | | + + + + | STATUS OF UNIT | Returned to Blood Bank | | + + + + | EXPIRATION DATE | [id number] | | + + + + | BLOOD TYPE BARCODE | 5100 | | + + + + | BLOOD PRODUCT CODE | [id number] | | + + + + + + + | Specimen | Performing Laboratory | + + + | | [facility], TRANSFUSION MEDICINE [address] | | | [place] [address] | + + + PRODUCT - RED CELLS LEUKOREDUCED (09/01/2017 9:49 AM) + + + + | Component | Value | Ref Range | + + + + | PRODUCT DESCRIPTION | -1 RED BLOOD CELL ADENINE-SALINE ADDED | | | | LEUKOCYTE | | + + + + | PRODUCT UNIT # | [id number] | | + + + + | UNIT ABO | O | | + + + + | UNIT RH | POS | | + + + + | STATUS OF UNIT | Returned to Blood Bank | | + + + + | EXPIRATION DATE | [id number] | | + + + + | BLOOD TYPE BARCODE | 5100 | | + + + + | BLOOD PRODUCT CODE | [id number] | | + + + + + + + | Specimen | Performing Laboratory | + + + | | [facility], TRANSFUSION MEDICINE [address] [facility] | | | [place] [address] | + + + PRODUCT - FRESH FROZEN PLASMA (09/01/2017 9:46 AM) + + + + | Component | Value | Ref Range | + + + + | PRODUCT DESCRIPTION | PLASMA THAWED | | + + + + | PRODUCT UNIT # | [id number] | | + + + + | UNIT ABO | B | | + + + + | UNIT RH | POS | | + + + + | STATUS OF UNIT | Returned to Blood Bank | | + + + + | EXPIRATION DATE | [id number] | | + + + + | BLOOD TYPE BARCODE | 7300 | | + + + + | BLOOD PRODUCT CODE | [id number] | | + + + + + + + | Specimen | Performing Laboratory | + + + | | [facility], TRANSFUSION MEDICINE [address] [place] [address] | | | [place] [address] | + + + PRODUCT - FRESH FROZEN PLASMA (09/01/2017 9:46 AM) + + + + | Component | Value | Ref Range | + + + + | PRODUCT DESCRIPTION | PLASMA THAWED | | + + + + | PRODUCT UNIT # | [id number] | | + + + + | UNIT ABO | B | | + + + + | UNIT RH | POS | | + + + + | STATUS OF UNIT | Returned to Blood Bank | | + + + + | EXPIRATION DATE | [id number] | | + + + + | BLOOD TYPE BARCODE | 7300 | | + + + + | BLOOD PRODUCT CODE | [id number] | | + + + + + + + | Specimen | Performing Laboratory | + + + | | [facility], TRANSFUSION MEDICINE [address] [facility] | | | [place] [address] | + + + PRODUCT - FRESH FROZEN PLASMA (09/01/2017 9:46 AM) + + + + | Component | Value | Ref Range | + + + + | PRODUCT DESCRIPTION | LIQUID PLASMA, IRRADIATED | | + + + + | PRODUCT UNIT # | [id number] | | + + + + | UNIT ABO | A | | + + + + | UNIT RH | POS | | + + + + | STATUS OF UNIT | Returned to Blood Bank | | + + + + | EXPIRATION DATE | [id number] | | + + + + | BLOOD TYPE BARCODE | 6200 | | + + + + | BLOOD PRODUCT CODE | [id number] | | + + + + + + + | Specimen | Performing Laboratory | + + + | | [facility], TRANSFUSION MEDICINE [address] [facility] | | | [place] [address] | + + + PRODUCT - FRESH FROZEN PLASMA (09/01/2017 9:46 AM) + + + + | Component | Value | Ref Range | + + + + | PRODUCT DESCRIPTION | LIQUID PLASMA, IRRADIATED | | + + + + | PRODUCT UNIT # | [id number] | | + + + + | UNIT ABO | A | | + + + + | UNIT RH | POS | | + + + + | STATUS OF UNIT | Returned to Blood Bank | | + + + + | EXPIRATION DATE | [id number] | | + + + + | BLOOD TYPE BARCODE | 6200 | | + + + + | BLOOD PRODUCT CODE | [id number] | | + + + + + + + | Specimen | Performing Laboratory | + + + | | [facility], TRANSFUSION MEDICINE [address] [facility] | | | [place] [address] | + + + PRODUCT - FRESH FROZEN PLASMA (09/01/2017 9:46 AM) + + + + | Component | Value | Ref Range | + + + + | PRODUCT DESCRIPTION | LIQUID PLASMA, IRRADIATED | | + + + + | PRODUCT UNIT # | [id number] | | + + + + | UNIT ABO | A | | + + + + | UNIT RH | POS | | + + + + | STATUS OF UNIT | Returned to Blood Bank | | + + + + | EXPIRATION DATE | [id number] | | + + + + | BLOOD TYPE BARCODE | 6200 | | + + + + | BLOOD PRODUCT CODE | [id number] | | + + + + + + + | Specimen | Performing Laboratory | + + + | | [facility], TRANSFUSION MEDICINE [address] | | | [place] [address] | + + + PRODUCT - FRESH FROZEN PLASMA (09/01/2017 9:46 AM) + + + + | Component | Value | Ref Range | + + + + | PRODUCT DESCRIPTION | LIQUID PLASMA, IRRADIATED | | + + + + | PRODUCT UNIT # | [id number] | | + + + + | UNIT ABO | A | | + + + + | UNIT RH | POS | | + + + + | STATUS OF UNIT | Returned to Blood Bank | | + + + + | EXPIRATION DATE | [id number] | | + + + + | BLOOD TYPE BARCODE | 6200 | | + + + + | BLOOD PRODUCT CODE | [id number] | | + + + + + + + | Specimen | Performing Laboratory | + + + | | [facility], TRANSFUSION MEDICINE [address] [facility] | | | [place] [address] | + + + PRODUCT - PLATELET PHERESIS LEUKOREDUCED (09/01/2017 9:43 AM) + + + + | Component | Value | Ref Range | + + + + | PRODUCT DESCRIPTION | PLATELETS PHERESIS LEUKOCYTE REDUCED | | + + + + | PRODUCT UNIT # | [id number] | | + + + + | UNIT ABO | A | | + + + + | UNIT RH | POS | | + + + + | STATUS OF UNIT | Presumed Transfused | | + + + + | EXPIRATION DATE | [id number] | | + + + + | BLOOD TYPE BARCODE | 6200 | | + + + + | BLOOD PRODUCT CODE | [id number] | | + + + + + + + | Specimen | Performing Laboratory | + + + | | [facility], TRANSFUSION MEDICINE [address] [facility] | | | [place] [address] | + + + PRODUCT - FRESH FROZEN PLASMA (09/01/2017 9:35 AM) + + + + | Component | Value | Ref Range | + + + + | PRODUCT DESCRIPTION | LIQUID PLASMA, IRRADIATED | | + + + + | PRODUCT UNIT # | [id number] | | + + + + | UNIT ABO | A | | + + + + | UNIT RH | NEG | | + + + + | STATUS OF UNIT | Presumed Transfused | | + + + + | EXPIRATION DATE | [id number] | | + + + + | BLOOD TYPE BARCODE | | | + + + + | BLOOD PRODUCT CODE | [id number] | | + + + + + + + | Specimen | Performing Laboratory | + + + | | [facility], TRANSFUSION MEDICINE [address] [facility] | | | [place] [address] | + + + PRODUCT - FRESH FROZEN PLASMA (09/01/2017 9:35 AM) + + + + | Component | Value | Ref Range | + + + + | PRODUCT DESCRIPTION | LIQUID PLASMA, IRRADIATED | | + + + + | PRODUCT UNIT # | [id number] | | + + + + | UNIT ABO | A | | + + + + | UNIT RH | NEG | | + + + + | STATUS OF UNIT | Returned to Blood Bank | | + + + + | EXPIRATION DATE | [id number] | | + + + + | BLOOD TYPE BARCODE | 0600 | | + + + + | BLOOD PRODUCT CODE | [id number] | | + + + + + + + | Specimen | Performing Laboratory | + + + | | [facility], TRANSFUSION MEDICINE [address] [facility] | | | [place] [address] | + + + PRODUCT - FRESH FROZEN PLASMA (09/01/2017 9:35 AM) + + + + | Component | Value | Ref Range | + + + + | PRODUCT DESCRIPTION | LIQUID PLASMA, IRRADIATED | | + + + + | PRODUCT UNIT # | [id number] | | + + + + | UNIT ABO | A | | + + + + | UNIT RH | POS | | + + + + | STATUS OF UNIT | Returned to Blood Bank | | + + + + | EXPIRATION DATE | [id number] | | + + + + | BLOOD TYPE BARCODE | 6200 | | + + + + | BLOOD PRODUCT CODE | [id number] | | + + + + + + + | Specimen | Performing Laboratory | + + + | | [facility], TRANSFUSION MEDICINE [address] [facility] | | | [place] [address] | + + + PRODUCT - FRESH FROZEN PLASMA (09/01/2017 9:35 AM) + + + + | Component | Value | Ref Range | + + + + | PRODUCT DESCRIPTION | LIQUID PLASMA, IRRADIATED | | + + + + | PRODUCT UNIT # | [id number] | | + + + + | UNIT ABO | A | | + + + + | UNIT RH | POS | | + + + + | STATUS OF UNIT | Presumed Transfused | | + + + + | EXPIRATION DATE | [id number] | | + + + + | BLOOD TYPE BARCODE | 6200 | | + + + + | BLOOD PRODUCT CODE | [id number] | | + + + + + + + | Specimen | Performing Laboratory | + + + | | [facility], TRANSFUSION MEDICINE [address] [facility] | | | [place] [address] | + + + PRODUCT - RED CELLS LEUKOREDUCED (09/01/2017 9:35 AM) + + + + | Component | Value | Ref Range | + + + + | PRODUCT DESCRIPTION | -1 RED BLOOD CELL ADENINE-SALINE ADDED | | | | LEUKOCYTE | | + + + + | PRODUCT UNIT # | [id number] | | + + + + | UNIT ABO | O | | + + + + | UNIT RH | POS | | + + + + | STATUS OF UNIT | Returned to Blood Bank | | + + + + | EXPIRATION DATE | [id number] | | + + + + | BLOOD TYPE BARCODE | 5100 | | + + + + | BLOOD PRODUCT CODE | [id number] | | + + + + + + + | Specimen | Performing Laboratory | + + + | | [facility], TRANSFUSION MEDICINE [address] [facility] | | | [place] [address] | + + + PRODUCT - RED CELLS LEUKOREDUCED (09/01/2017 9:35 AM) + + + + | Component | Value | Ref Range | + + + + | PRODUCT DESCRIPTION | -1 RED BLOOD CELL ADENINE-SALINE ADDED | | | | LEUKOCYTE | | + + + + | PRODUCT UNIT # | [id number] | | + + + + | UNIT ABO | O | | + + + + | UNIT RH | POS | | + + + + | STATUS OF UNIT | Returned to Blood Bank | | + + + + | EXPIRATION DATE | [id number] | | + + + + | BLOOD TYPE BARCODE | 5100 | | + + + + | BLOOD PRODUCT CODE | [id number] | | + + + + + + + | Specimen | Performing Laboratory | + + + | | [facility], TRANSFUSION MEDICINE [address] [place] [address] | | | [place] [address] | + + + PRODUCT - RED CELLS LEUKOREDUCED (09/01/2017 9:35 AM) + + + + | Component | Value | Ref Range | + + + + | PRODUCT DESCRIPTION | -1 RED BLOOD CELL ADENINE-SALINE ADDED | | | | LEUKOCYTE | | + + + + | PRODUCT UNIT # | [id number] | | + + + + | UNIT ABO | O | | + + + + | UNIT RH | POS | | + + + + | STATUS OF UNIT | Presumed Transfused | | + + + + | EXPIRATION DATE | [id number] | | + + + + | BLOOD TYPE BARCODE | 5100 | | + + + + | BLOOD PRODUCT CODE | [id number] | | + + + + + + + | Specimen | Performing Laboratory | + + + | | [facility], TRANSFUSION MEDICINE [address] [facility] | | | [place] [address] | + + + PRODUCT - RED CELLS LEUKOREDUCED (09/01/2017 9:35 AM) + + + + | Component | Value | Ref Range | + + + + | PRODUCT DESCRIPTION | -1 RED BLOOD CELL ADENINE-SALINE ADDED | | | | LEUKOCYTE | | + + + + | PRODUCT UNIT # | [id number] | | + + + + | UNIT ABO | O | | + + + + | UNIT RH | POS | | + + + + | STATUS OF UNIT | Presumed Transfused | | + + + + | EXPIRATION DATE | [id number] | | + + + + | BLOOD TYPE BARCODE | 5100 | | + + + + | BLOOD PRODUCT CODE | [id number] | | + + + + + + + | Specimen | Performing Laboratory | + + + | | [facility], TRANSFUSION MEDICINE [address] [facility] | | | [place] [place] [address] | + + + PRODUCT - RED CELLS LEUKOREDUCED (09/01/2017 9:35 AM) + + + + | Component | Value | Ref Range | + + + + | PRODUCT DESCRIPTION | -1 RED BLOOD CELL ADENINE-SALINE ADDED | | | | LEUKOCYTE | | + + + + | PRODUCT UNIT # | [id number] | | + + + + | UNIT ABO | O | | + + + + | UNIT RH | POS | | + + + + | STATUS OF UNIT | Returned to Blood Bank | | + + + + | EXPIRATION DATE | [id number] | | + + + + | BLOOD TYPE BARCODE | 5100 | | + + + + | BLOOD PRODUCT CODE | [id number] | | + + + + + + + | Specimen | Performing Laboratory | + + + | | [facility], TRANSFUSION MEDICINE [address] [place] [address] | | | [place] [address] | + + + PRODUCT - RED CELLS LEUKOREDUCED (09/01/2017 9:35 AM) + + + + | Component | Value | Ref Range | + + + + | PRODUCT DESCRIPTION | -1 RED BLOOD CELL ADENINE-SALINE ADDED | | | | LEUKOCYTE | | + + + + | PRODUCT UNIT # | [id number] | | + + + + | UNIT ABO | O | | + + + + | UNIT RH | POS | | + + + + | STATUS OF UNIT | Presumed Transfused | | + + + + | EXPIRATION DATE | [id number] | | + + + + | BLOOD TYPE BARCODE | 5100 | | + + + + | BLOOD PRODUCT CODE | [id number] | | + + + + + + + | Specimen | Performing Laboratory | + + + | | [facility], TRANSFUSION MEDICINE [address] [facility] | | | [place] [address] | + + + CBC (HEMOGRAM) ONLY [...] | + + + | Blood | [facility], [facility] [address] | | | [place] [address] | + + + RENAL FUNCTION SET [...] | >60 | >60 mL/min | | [place] | | | + + + + | EGFR NON | >60 | >60 mL/min | | -GEORGIAN | | | + + + + [...] | + + + | Blood | [facility], CORE [address] [place] [address] | | | [place] [address] | + + + + + | [...] | | ------ CBC (HEMOGRAM) | | ONLY[[id number]] Abnormal Final | | result Please view results for these tests on the | | individual orders. | + + LACTATE (09/01/2017 9:35 AM) + +-------+ + | Component | Value | Ref Range | + +-------+ + | LACTATE | 2.5 | mmol/L | + +-------+ + + + + | Specimen | Performing Laboratory | + + + | Blood | [facility], CORE [address] | | | [place] [address] | + + + + + | [...] | + + + | Blood | [facility], [facility] [address] | | | [place] [address] | + + + X-RAY PORTABLE CHEST 1 VIEW (09/01/2017 9:18 AM) + + + | Specimen | Performing Laboratory | + + + | | [facility] RAD[facility] VOICE RECOGNITION | + + + + + | Narrative | + + | EXAM: WA CHEST 1 [...] Laboratory | + + + | | [facility] RAD[facility] VOICE RECOGNITION | + + [...] Note | + + | Service Account, Overtone Res In Interface - 09/01/2017 1:40 PM [...] + + | PRODUCT UNIT # | [id number] | | + + + + | UNIT ABO | O | | + + + + | UNIT RH | POS | | + + + + | STATUS OF UNIT | Presumed Transfused | | + + + + | EXPIRATION DATE | [id number] | | + + + + | BLOOD TYPE BARCODE | 5100 | | + + + + | BLOOD PRODUCT CODE | [id number] | | + + + + + + + | Specimen | Performing Laboratory | + + + | | [facility], TRANSFUSION MEDICINE [address] [facility] | | | [place] [address] | + + + PRODUCT - RED CELLS LEUKOREDUCED (09/01/2017 9:08 AM) + + + + | Component | Value | Ref Range | + + + + | PRODUCT DESCRIPTION | -1 RED BLOOD CELL ADENINE-SALINE ADDED | | | | LEUKOCYTE | | + + + + | PRODUCT UNIT # | [id number] | | + + + + | UNIT ABO | O | | + + + + | UNIT RH | POS | | + + + + | STATUS OF UNIT | Presumed Transfused | | + + + + | EXPIRATION DATE | [id number] | | + + + + | BLOOD TYPE BARCODE | 5100 | | + + + + | BLOOD PRODUCT CODE | [id number] | | + + + + + + + | Specimen | Performing Laboratory | + + + | | [facility], TRANSFUSION MEDICINE [address] [facility] | | | [place] [address] | + + + PRODUCT - RED CELLS LEUKOREDUCED (09/01/2017 9:08 AM) + + + + | Component | Value | Ref Range | + + + + | PRODUCT DESCRIPTION | -1 RED BLOOD CELL ADENINE-SALINE ADDED | | | | LEUKOCYTE | | + + + + | PRODUCT UNIT # | [id number] | | + + + + | UNIT ABO | O | | + + + + | UNIT RH | POS | | + + + + | STATUS OF UNIT | Presumed Transfused | | + + + + | EXPIRATION DATE | [id number] | | + + + + | BLOOD TYPE BARCODE | 5100 | | + + + + | BLOOD PRODUCT CODE | [id number] | | + + + + + + + | Specimen | Performing Laboratory | + + + | | [facility], TRANSFUSION MEDICINE [address] | | | [place] [address] | + + + PRODUCT - RED CELLS LEUKOREDUCED (09/01/2017 9:08 AM) + + + + | Component | Value | Ref Range | + + + + | PRODUCT DESCRIPTION | -1 RED BLOOD CELL ADENINE-SALINE ADDED | | | | LEUKOCYTE | | + + + + | PRODUCT UNIT # | [id number] | | + + + + | UNIT ABO | O | | + + + + | UNIT RH | POS | | + + + + | STATUS OF UNIT | Presumed Transfused | | + + + + | EXPIRATION DATE | [id number] | | + + + + | BLOOD TYPE BARCODE | 5100 | | + + + + | BLOOD PRODUCT CODE | [id number] | | + + + + + + + | Specimen | Performing Laboratory | + + + | | [facility], TRANSFUSION MEDICINE [address] [facility] | | | [place] [address] | + + + PRODUCT - FRESH FROZEN PLASMA (09/01/2017 9:08 AM) + + + + | Component | Value | Ref Range | + + + + | PRODUCT DESCRIPTION | PLASMA THAWED | | + + + + | PRODUCT UNIT # | [id number] | | + + + + | UNIT ABO | B | | + + + + | UNIT RH | POS | | + + + + | STATUS OF UNIT | Presumed Transfused | | + + + + | EXPIRATION DATE | [id number] | | + + + + | BLOOD TYPE BARCODE | 7300 | | + + + + | BLOOD PRODUCT CODE | [id number] | | + + + + + + + | Specimen | Performing Laboratory | + + + | | [facility], TRANSFUSION MEDICINE [address] | | | [place] [address] | + + + PRODUCT - FRESH FROZEN PLASMA (09/01/2017 9:08 AM) + + + + | Component | Value | Ref Range | + + + + | PRODUCT DESCRIPTION | PLASMA THAWED | | + + + + | PRODUCT UNIT # | [id number] | | + + + + | UNIT ABO | B | | + + + + | UNIT RH | POS | | + + + + | STATUS OF UNIT | Presumed Transfused | | + + + + | EXPIRATION DATE | [id number] | | + + + + | BLOOD TYPE BARCODE | 7300 | | + + + + | BLOOD PRODUCT CODE | [id number] | | + + + + + + + | Specimen | Performing Laboratory | + + + | | [facility], TRANSFUSION MEDICINE [address] [facility] | | | [place] [address] | + + + PRODUCT - FRESH FROZEN PLASMA (09/01/2017 9:08 AM) + + + + | Component | Value | Ref Range | + + + + | PRODUCT DESCRIPTION | PLASMA THAWED | | + + + + | PRODUCT UNIT # | [id number] | | + + + + | UNIT ABO | B | | + + + + | UNIT RH | POS | | + + + + | STATUS OF UNIT | Presumed Transfused | | + + + + | EXPIRATION DATE | [id number] | | + + + + | BLOOD TYPE BARCODE | 7300 | | + + + + | BLOOD PRODUCT CODE | [id number] | | + + + + + + + | Specimen | Performing Laboratory | + + + | | [facility], TRANSFUSION MEDICINE [address] [facility] | | | [place] [address] | + + + PRODUCT - FRESH FROZEN PLASMA (09/01/2017 9:08 AM) + + + + | Component | Value | Ref Range | + + + + | PRODUCT DESCRIPTION | THAWED APHERESIS PLASMA | | + + + + | PRODUCT UNIT # | [id number] | | + + + + | UNIT ABO | B | | + + + + | UNIT RH | POS | | + + + + | STATUS OF UNIT | Presumed Transfused | | + + + + | EXPIRATION DATE | [id number] | | + + + + | BLOOD TYPE BARCODE | 7300 | | + + + + | BLOOD PRODUCT CODE | [id number] | | + + + + + + + | Specimen | Performing Laboratory | + + + | | [facility], TRANSFUSION MEDICINE [address] [facility] | | | [place] [address] | + + + CT HEAD WO CONTRAST (09/01/2017 8:42 AM) + + + | Specimen | Performing Laboratory | + + + | | [facility] RAD[facility] VOICE RECOGNITION | + + [...] + + | PRODUCT UNIT # | [id number] | | + + + + | UNIT ABO | O | | + + + + | UNIT RH | POS | | + + + + | STATUS OF UNIT | Presumed Transfused | | + + + + | EXPIRATION DATE | [id number] | | + + + + | BLOOD TYPE BARCODE | 5100 | | + + + + | BLOOD PRODUCT CODE | [id number] | | + + + + + + + | Specimen | Performing Laboratory | + + + | | [facility], TRANSFUSION MEDICINE [address] | | | [place] [address] | + + + LACTATE (09/01/2017 5:29 AM) + +-------+ + | Component | Value | Ref Range | + +-------+ + | LACTATE | 1.2 | mmol/L | + +-------+ + + + + | Specimen | Performing Laboratory | + + + | Blood | [facility] LABOR[facility]ORY [facility], CORE [address] [facility] [address] | | | [place] [address] | + + + + + | [...] | + + + | Blood | [facility], CORE [address] [facility] | | | [facility] [address] | + + + MRI SPINE CERVICAL/THORACIC WO CONTRAST (09/01/2017 3:53 AM) + + + | Specimen | Performing Laboratory | + + + | | [facility] RAD[facility] VOICE RECOGNITION | + + [...] | | injured. Discussed with trauma ICU software developer intern by Dr. Yang at 4:38 AM. I have | | personally reviewed the images and, if necessary, edited the report. I agree with | | the report as now presented. | + + + + | Procedure Note | + + | Service Account, Overtone Res In Interface - 09/01/2017 10:10 AM [...] interspinous ligament is injured.Discussed with trauma ICU software developer intern | | by Dr. Yang at 4:38 AM.I have personally reviewed the images and, if necessary, | | edited the report. I agree with the report as now presented. | |3. Extensive soft tissue edema extending into the cervical and upper thoracic interspinous space, suggestive of interspinous ligament is injured. | | | |Discussed with trauma ICU software developer intern by Dr. Yang at 4:38 AM. [...] | >60 | >60 mL/min | | [place] | | | + +---------+ + | EGFR NON | >60 | >60 mL/min | | -[place]GIAN | | | + +---------+ + | [...] | + + + | Blood | [facility], CORE [address] [facility] | | | [place] [address] | + + + + + | [...] | + + + | Blood | [facility], CORE [address] [facility] | | | [place] [address] | + + + + + | [...] | + + + | Blood | [facility], CORE [address] | | | [place] [address] | + + + LACTATE (09/01/2017 1:32 AM) + +-------+ + | Component | Value | Ref Range | + +-------+ + | LACTATE | 1.4 | mmol/L | + +-------+ + + + + | Specimen | Performing Laboratory | + + + | Blood | [facility], CORE [address] [facility] | | | [place] [address] | + + + + + | [...] | | ------ CBC (HEMOGRAM) | | ONLY[[id number]] Abnormal Final | | result Please view [...] pleural spaced was performed. A 32 size [place] chest tube was placed into the | [...] Laboratory | + + + | | [facility] RAD[facility] VOICE RECOGNITION | + + [...] | ventricles. Discussed with the trauma ICU software developer intern at 12:[address] Yang. [...] ventricles.Discussed with | | the trauma ICU software developer intern at 12:[address] Yang.I [...] | | |Discussed with the trauma ICU software developer intern at 12:[address] Yang. [...] [address] | | | [place] [address] | + + + + + | Narrative | + + | Dixon Shields MD 09/01/2017 4:50 PM Femoral Venous Central Line Name: [place] | | Maver[place] 08/31/2017 Time: 17:45 Diagnosis: Hypotension, trauma | [...] | + + + | Blood | [facility], CORE [address] [facility] | | | [place] [address] | + + + LACTATE (08/31/2017 9:19 PM) + +-------+ + | Component | Value | Ref Range | + +-------+ + | LACTATE | 2.2 | mmol/L | + +-------+ + + + + | Specimen | Performing Laboratory | + + + | Blood | [facility], CORE [address] [facility] [address] | | | [place] [address] | + + + + + | [...] Note | + + | Service Account, RadiSingWho Res In Interface - 09/01/2017 1:50 PM [...] Laboratory | + + + | | [facility] RAD[facility] VOICE RECOGNITION | + + [...] Laboratory | + + + | | [facility] RAD[facility] VOICE RECOGNITION | + + [...] | + + + | Blood | [facility], CORE [address] [facility] | | | [place] [address] | + + + X-RAY PORTABLE CHEST 1 VIEW (08/31/2017 7:07 PM) + + + | Specimen | Performing Laboratory | + + + | | [facility] RAD[facility]Y VOICE RECOGNITION | + + + + + | Narrative | + + | STUDY: WA CHEST 1 [...] | + + + | Blood | [facility], CORE [address] | | | [place] [address] | + + + CTA NECK W CONTRAST (08/31/2017 6:27 PM) + + + | Specimen | Performing Laboratory | + + + | | [facility] RADIOLOG[facility] VOICE RECOGNITION | + + [...] Laboratory | + + + | | [facility] RADI[facility] VOICE RECOGNITION | + + [...] Note | + + | Service Account, Overtone Res In Interface - 09/01/2017 10:12 AM [...] rib, nondisplaced-Left | | 1st rib fracture, civdtrdemyuj-Hvq-leuyjefmx left lateral 8th rib fracture-T12 fracture | [...] Note | + + | Service Account, Overtone Res In Interface - 08/31/2017 8:10 PM [...] Laboratory | + + + | | [facility] RAD[facility] VOICE RECOGNITION | + + [...] | + + + | Blood | [facility], TRANSFUSION MEDICINE [address] [facility] | | | [place] [address] | + + + ABO & RH [...] | + + + | Blood | [facility], TRANSFUSION MEDICINE [address] [place] [address] | | | [place] [address] | + + + TYPE AND SCREEN [...] | ------ ABO & RH | | TYPE[[id number]] F | | inal result ANTIBODY | | SCREEN[[id number]] Fin | | al result Please view [...] | + + + | Blood | [facility] SERVICES, TRANSFUSION MEDICINE [address] [place] [address] | | | [place] [address] | + + + THROMBELASTOGRAPH, POC (08/31/2017 [...] | Blood | [facility] [address] | | | [place] [address] | + + + + + | [...] | | MD Cornelius | + + THROMBELASTOGRAPH POC (08/31/2017 5:35 PM) + + + [...] | + + + | Blood | [facility] POINT OF CARE TESTS [address] [facility] [address] | | | [place] [address] | + + + + + | [...] [address] | | | [place] [address] | + + + ED BG-LAC,POC (08/31/2017 [...] Laboratory | + + + | | [facility], POINT OF CARE TESTS [address] | | | [place] [address] | + + + PRODUCT - RED CELLS LEUKOREDUCED (08/31/2017 5:06 PM) + + + + | Component | Value | Ref Range | + + + + | PRODUCT DESCRIPTION | -1 RED BLOOD CELL ADENINE-SALINE ADDED | | | | LEUKOCYTE | | + + + + | PRODUCT UNIT # | [id number] | | + + + + | UNIT ABO | O | | + + + + | UNIT RH | POS | | + + + + | STATUS OF UNIT | Returned to Blood Bank | | + + + + | EXPIRATION DATE | [id number] | | + + + + | BLOOD TYPE BARCODE | 5100 | | + + + + | BLOOD PRODUCT CODE | [id number] | | + + + + + + + | Specimen | Performing Laboratory | + + + | | [facility] SERVICES, TRANSFUSION MEDICINE [address] | | | [place] [address] | + + + PRODUCT - RED CELLS LEUKOREDUCED (08/31/2017 5:06 PM) + + + + | Component | Value | Ref Range | + + + + | PRODUCT DESCRIPTION | -1 RED BLOOD CELL ADENINE-SALINE ADDED | | | | LEUKOCYTE | | + + + + | PRODUCT UNIT # | [id number] | | + + + + | UNIT ABO | O | | + + + + | UNIT RH | POS | | + + + + | STATUS OF UNIT | Presumed Transfused | | + + + + | EXPIRATION DATE | [id number] | | + + + + | BLOOD TYPE BARCODE | 5100 | | + + + + | BLOOD PRODUCT CODE | [id number] | | + + + + + + + | Specimen | Performing Laboratory | + + + | | [facility] SERVICES, TRANSFUSION MEDICINE [address] [facility] | | | [place] [address] | + + + PRODUCT - RED CELLS LEUKOREDUCED (08/31/2017 5:06 PM) + + + + | Component | Value | Ref Range | + + + + | PRODUCT DESCRIPTION | -1 RED BLOOD CELL ADENINE-SALINE ADDED | | | | LEUKOCYTE | | + + + + | PRODUCT UNIT # | [id number] | | + + + + | UNIT ABO | O | | + + + + | UNIT RH | POS | | + + + + | STATUS OF UNIT | Returned to Blood Bank | | + + + + | EXPIRATION DATE | [id number] | | + + + + | BLOOD TYPE BARCODE | 5100 | | + + + + | BLOOD PRODUCT CODE | [id number] | | + + + + + + + | Specimen | Performing Laboratory | + + + | | [facility] SERVICES, TRANSFUSION MEDICINE [address] | | | [place] [address] | + + + PRODUCT - RED CELLS LEUKOREDUCED (08/31/2017 5:06 PM) + + + + | Component | Value | Ref Range | + + + + | PRODUCT DESCRIPTION | -1 RED BLOOD CELL ADENINE-SALINE ADDED | | | | LEUKOCYTE | | + + + + | PRODUCT UNIT # | [id number] | | + + + + | UNIT ABO | O | | + + + + | UNIT RH | POS | | + + + + | STATUS OF UNIT | Presumed Transfused | | + + + + | EXPIRATION DATE | [id number] | | + + + + | BLOOD TYPE BARCODE | 5100 | | + + + + | BLOOD PRODUCT CODE | [id number] | | + + + + + + + | Specimen | Performing Laboratory | + + + | | [facility] SERVICES, TRANSFUSION MEDICINE [address] | | | [place] [address] | + + + PRODUCT - FRESH FROZEN PLASMA (08/31/2017 5:05 PM) + + + + | Component | Value | Ref Range | + + + + | PRODUCT DESCRIPTION | LIQUID PLASMA, IRRADIATED | | + + + + | PRODUCT UNIT # | [id number] | | + + + + | UNIT ABO | A | | + + + + | UNIT RH | POS | | + + + + | STATUS OF UNIT | Presumed Transfused | | + + + + | EXPIRATION DATE | [id number] | | + + + + | BLOOD TYPE BARCODE | 6200 | | + + + + | BLOOD PRODUCT CODE | [id number] | | + + + + + + + | Specimen | Performing Laboratory | + + + | | [facility] SERVICES, TRANSFUSION MEDICINE [address] [facility] | | | [place] [address] | + + + PRODUCT - FRESH FROZEN PLASMA (08/31/2017 5:05 PM) + + + + | Component | Value | Ref Range | + + + + | PRODUCT DESCRIPTION | LIQUID PLASMA, IRRADIATED | | + + + + | PRODUCT UNIT # | [id number] | | + + + + | UNIT ABO | A | | + + + + | UNIT RH | POS | | + + + + | STATUS OF UNIT | Presumed Transfused | | + + + + | EXPIRATION DATE | [id number] | | + + + + | BLOOD TYPE BARCODE | 6200 | | + + + + | BLOOD PRODUCT CODE | [id number] | | + + + + + + + | Specimen | Performing Laboratory | + + + | | [facility] SERVICES, TRANSFUSION MEDICINE [address] | | | [place] [address] | + + + PRODUCT - FRESH FROZEN PLASMA (08/31/2017 5:05 PM) + + + + | Component | Value | Ref Range | + + + + | PRODUCT DESCRIPTION | LIQUID PLASMA, IRRADIATED | | + + + + | PRODUCT UNIT # | [id number] | | + + + + | UNIT ABO | A | | + + + + | UNIT RH | POS | | + + + + | STATUS OF UNIT | Returned to Blood Bank | | + + + + | EXPIRATION DATE | [id number] | | + + + + | BLOOD TYPE BARCODE | 6200 | | + + + + | BLOOD PRODUCT CODE | [id number] | | + + + + + + + | Specimen | Performing Laboratory | + + + | | [facility] SERVICES, TRANSFUSION MEDICINE [address] | | | [place] [address] | + + + PRODUCT - FRESH FROZEN PLASMA (08/31/2017 5:05 PM) + + + + | Component | Value | Ref Range | + + + + | PRODUCT DESCRIPTION | LIQUID PLASMA, IRRADIATED | | + + + + | PRODUCT UNIT # | [id number] | | + + + + | UNIT ABO | A | | + + + + | UNIT RH | POS | | + + + + | STATUS OF UNIT | Returned to Blood Bank | | + + + + | EXPIRATION DATE | [id number] | | + + + + | BLOOD TYPE BARCODE | 6200 | | + + + + | BLOOD PRODUCT CODE | [id number] | | + + + + + + + | Specimen | Performing Laboratory | + + + | | [facility], TRANSFUSION MEDICINE [address] | | | [place] [address] | + + + CBC (HEMOGRAM) ONLY [...] | + + + | Blood | [facility], CORE [address] [facility] | | | [place] [address] | + + + BASIC METABOLIC SET [...] | >60 | >60 mL/min | | [place] | | | + +---------+ + | EGFR NON | >60 | >60 mL/min | | -[place] | | | + +---------+ + | [...] | + + + | Blood | [facility], CORE [address] [facility] | | | [place] [address] | + + + + + | [...] | + + + | Blood | [facility], CORE [address] | | | [place] [address] | + + + + + | [...] | | ------ CBC (HEMOGRAM) | | ONLY[[id number]] Abnormal Final | | result Please view [...] | + + + | Blood | [facility], CORE [address] [facility] | | | [place] [address] | + + + PHOSPHORUS, PLASMA (08/31/2017 4:50 PM) + +-------+ + | Component | Value | Ref Range | + +-------+ + | PHOSPHORUS, PLASMA | 4.0 | 2.4 - 4.7 mg/dL | | (LAB) | | | + +-------+ + + + + | Specimen | Performing Laboratory | + + + | Blood | [facility], CORE [address] [place] [address] | | | [place] [address] | + + + MAGNESIUM, PLASMA (08/31/2017 4:50 PM) + +---------+ + | Component | Value | Ref Range | + +---------+ + | MAGNESIUM,PLASMA | 1.5 (L) | 1.6 - 2.6 mg/dL | + +---------+ + + + + | Specimen | Performing Laboratory | + + + | Blood | [facility], [address] [place] [address] | | | [place] [address] | + + + + + | [...] | | | +---+---+ + +-------+ + +---+ + | bacitracin 20 Units, ringers | Given | | 2,020 mL | | Surgical | | (TIS-U-JUAN) 2,000 mL | | 8 08:49 | | | Site | | INTRAPROCEDURE PRN, Starting Sho | | PDT | | | | | 10/10/17 at 0849, Until Sho | | | | | | | 10/10/17 at 1243 | | | | | | + +-------+ + +---+ + +---+---+ | | | +---+---+ + +-------+ +---------+---+ + | bacitracin ointment | Given | | 1 strip | | Surgical | | INTRAPROCEDURE PRN, Starting Sho | | 8 09:58 | | | Site | | 10/10/17 at 0958, Until Sho | | PDT | | | | | 10/10/17 at 1243 | | | | | | + +-------+ +---------+---+ + + +---+ | | | [...] | | +---+---+ + +-------+ +-------+---+---------+ | bupivacaine | Given | | 10 mL | | Abdomen | | (MARCAINE,SENSORCAINE) 0.25 % | | 8 10:39 | | | | | (2.5 mg/mL) injection | | PDT | | | | | INTRAPROCEDURE PRN, Starting Sho | | | | | | | 10/10/17 at 1039, Until Sho | | | | | | | 10/10/17 at 1243 | | | | | | + +-------+ +-------+---+---------+ +---+---+ | | | +---+---+ + +-------+ +-------+---+ + | bupivacaine-EPINEPHrine | Given | | 10 mL | | Surgical | | (MARCAINE-EPINEPHRINE) 0.25 | | 8 08:23 | | | Site | | %-1:200,000 injection | | PDT | | | | | INTRAPROCEDURE PRN, Starting Sho | | | | | | | 10/10/17 at 0823, Until Sho | | | | | | | 10/10/17 at 1243 | | | | | | + +-------+ +-------+---+ + + +---+ | | | + +---+ | dextrose 50 % in water IV 25 mL | | | 25 mL, intravenous, NEEDED, | | | Starting [facility] 09/26/17 at 0029, | | | Until [...] First dose on Sat11/10/17 at | | PDT | | | [...]
--- OUTSIDE RECORDS SUMMARY | ~2017-12-10 | XMS | Encounter Summary ---
Demographics + + + | Address | [address] | | | [place] [address] | + + + | Home Phone [...] + | Author | [facility] | + + + | Organization | [facility] [employer] [facility] | [...] Team Providers + +------+ + | Care Microcomputer Technician Name | Role | Phone | [...] | | | | | floor [phone] [facility] | | | | | | [facility] | | | | | | [place], [place] | | | | | | [phone] | | | +--------+ + + + [...]
--- OUTSIDE RECORDS SUMMARY | ~2017-12-10 | XMS | Encounter Summary ---
Demographics + + + | Address | [address] | | | [place] [address] | + + + | Home Phone [...] | Author | [facility] [employer] [facility] | + + + | Organization | [facility] [employer] [facility] [...] Team Providers + +------+ + | Care Gamemaster Name | Role | Phone | + [...] | | | 2018 | Event | [facility] | [address] [facility] | | | | | Admitting Desk | [facility] | | | | | [facility] on the | [place] [address] | | | | | floor [address] [place] [address] | [phone] | | | | | [facility] | | | | | | [place], [place] | | | | | | [address] | | | +--------+ + + + [...] centrally accessed); | | | | | [id number]; 10/22/17; 1542; | | | | | [...] | 10/12/17 1732 by | | | ([place] 19fr channel drain); | Valeria Seth RN [...] lower | Valeria Seth RN | Maryan Kuamr RN | | | quadrant; 11/01/17; 1200 [...] | Narrative | + + | Patti Forte MD 10/12/2017 [...]
--- OUTSIDE RECORDS SUMMARY | ~2017-12-10 | XMS | Encounter Summary ---
Demographics + + + | Address | [address] | | | [place] [address] | + + + | Home Phone [...] + + + | Author | [facility] [employer] [facility] | + + + | Organization | [facility] [employer] [facility] | [...] Providers + +------+ + | Care Machine Fitter Name | Role | Phone | + [...] | | | | | Procedures | [place], [place] | [place] | | | | | REQUEST TO | [address] | [address] | | | | | SURGERY | Phone: | Phone: | | | | | STEWARD/STEWARDESS SMOKE ROOM | [phone] | [phone] | | | | | ME REPLACE | Fax: | Fax: | | | | | SKULL | [phone] | [phone] | | | | | PLATE/FLAP | | | | | | | ME REPAIR | | | | | | | SKULL | | | | | | | DEFECT,UP TO | | | | | | | 5CM ME | | | | | | | REPAIR SKULL | | | | | | | DEFECT,>5CM | | | | | | | ME | | | | | | | [...] + + + + | 10/31/ | Information Clerk | [facility] | Magdiel Stock MD | Skull defect | | 2018 | | [facility] [address] | [address] | (Primary Dx) | | | | [place], [place] | [place], | | | | | [address] | [place] [address] | | | | | [phone] | [phone] | | | | | | | [...]
--- OUTSIDE RECORDS SUMMARY | ~2017-12-10 | XMS | Encounter Summary ---
Demographics + + + | Address | [address] | | | [place] [address] | + + + | Home Phone [...] + + | Author | [facility] [employer] [facility] | + + + | Organization | [facility] [employer] [facility] | + + + | Address | Unknown | + + + | Phone | Unavailable | + + + Support + + +---------+ + | Name | Relationship | Address | Phone | + + +---------+ + | Kaylie Baig | ECON | Unknown | | + + +---------+ + Care Team Providers + +------+ + | Care Computer Game Designer Name | Role | Phone | [...] + + + + | 09/15/ | Plant Engineering Supervisor | Neurosurgery at | Dallin Bourgeois, | Other closed | | 2018 | | [facility] [address] | MD [address] | nondisplaced | | | | [address] Mailcode: CH8N | [address] | fracture of seventh | | | | [place] [facility] | [place], [place] | cervical vertebra | | | | and Healing, 8th | [address] | with routine | | | | Floor [place], [place] | [phone] | healing, subsequent | | | | [address] | | encounter (Primary | | | | [phone] | | Dx) | +--------+ + + [...]
--- OUTSIDE RECORDS SUMMARY | ~2017-12-10 | XMS | Encounter Summary ---
Demographics + + + | Address | [address] | | | [place] [address] | + + + | Home Phone [...] | [facility] [employer] [facility] | + + + | Organization | [facility] [employer] [facility] [...] Team Providers + +------+ + | Care Diesel Service Technician Name | Role | Phone | [...] | | | | | floor [address] [facility] | | | | | | [facility] | | | | | | [place], [place] | | | | | | [address] | | | +--------+ + + + [...]
--- OUTSIDE RECORDS SUMMARY | ~2017-12-10 | XMS | Encounter Summary ---
Demographics + + + | Address | [address] | | | [place] [address] | + + + | Home Phone [...] | Author | [facility] [employer] [facility] | + + + | Organization | [facility] [employer] [facility] [...] Team Providers + +------+ + | Care Comptometer Operator Name | Role | Phone | [...] | | | | | floor [address] [facility] | | | | | | [facility] | | | | | | [place], [place] | | | | | | [address] | | | +--------+ + + + [...]
--- OUTSIDE RECORDS SUMMARY | ~2017-12-10 | XMS | Encounter Summary ---
Demographics + + + | Address | [address] | | | [place] [address] | + + + | Home Phone [...] + + | Author | [facility] [employer] [facility] | + + + | Organization | [facility] [employer] [facility] | + + + | Address | Unknown | + + + | Phone | Unavailable | + + + Support + + +---------+ + | Name | Relationship | Address | Phone | + + +---------+ + | Kaylie Bagi | ECON | Unknown | | + + +---------+ + Care Team Providers + +------+ + | Care Sack Keeper Name | Role | Phone | [...] | | | | | floor [address] [facility] | | | | | | [facility] | | | | | | [place], [place] | | | | | | [address] | | | +--------+ + + + [...]
--- OUTSIDE RECORDS SUMMARY | ~2017-12-10 | XMS | Encounter Summary ---
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 recs. Chaz Munoz MD, FACS Cryptologic Supervisor, Trauma, Critical Care and Acute Care [...] - patient unable to come out fo ASSEMBLER MOLDED FRAMES for now - Will likely need for [...] G tube [place] [phone] [facility] [place] [address] [phone] Associated attestation - Chaz Munoz MD - 10/07/2017 11:15 AM PDTI saw and examined th e patient today with KESHAWN Martin, and agree with the assessement and plan a s outlined in her note. Will consider changing to bolus TF. Plan Gabriel-oconnor tube next week. Chaz Munoz MD, FACS Cryptologic Supervisor, Trauma, Critical Care and Acute Care [...] p atient unable to come out fo ASSEMBLER MOLDED FRAMES for now Resolved or chronic issues/Plan: #Previous [...] issues, including restraints. Venita Pruitt PA-[place] [phone] [place] [phone] [facility] [place] [address] [place] [phone] Associated attestation - Em Cunningham MD - 10/17/2017 10:13 AM PDTI was present and rou nded with the Advanced Practice Provider today . I interviewed and examined the patient. I reviewed the history, as documented today. I agree with the ASHLEY assessment and plan. TBI has remained stable. On lovenox. Will continue haldol per psych.. EM CUNNINGHAM MD [facility] [address] [place] [address] [place] [address] Venita Pruitt PA-C - 10/05/2017 8:38 AM [...] p atient unable to come out fo ASSEMBLER MOLDED FRAMES for now Resolved or chronic issues/Plan: #Previous [...] issues, including restraints. Venita Pruitt PA-C [place] [phone] [place] [phone] [facility] [place] [address] [place] [facility] [place] [address] [phone] Associated attestation - Shlomo Rosenthal MD - 10/06/2017 7:28 AM PDTFormatting of this note m ay be different from the original. I saw and examined Berlin Temple ([id number]) with the TRAUMA team on 10/05/2017. I [...] incen tive spirometry for pulmonary toliet. manager transportation planning for disposition planning and placement. Shlomo Rosenthal MD Applications System Analyst Division of Trauma and Critical Care Venita [...] (baseline from previous TBI ) Neck: in Hemet collar Respiratory: CTA b.l CV: RRR GI: [...] p atient unable to come out fo ASSEMBLER MOLDED FRAMES for now Resolved or chronic issues/Plan: #Previous [...] issues, including restraints. Venita Pruitt PA-C [place] [phone] [place] [phone] [facility] [address] [place] [facility] [phone] Associated attestation - Fidelina Shields MD - [...] and only enteral access. Fidelina Shields MD Cryptologic Supervisor Division of Trauma, Critical Care and Acute Care Surgery Office: [phone] Pager: [phone] Leonor Torres ACNP - 10/03/2017 3:13 PM [...] (baseline from previous TBI ) Neck: in Hemet collar Respiratory: CTA bilaterally, no distress CV: [...] p atient unable to come out fo ASSEMBLER MOLDED FRAMES for now Resolved or chronic issues/Plan: Previous [...] by patient, but wound remains duke n/dry/intact. [place] removed 09/17. #Left hemothorax Chest tube placed [...] PDTAttending: I saw and examined Berlin Temple ([id number]) with CB Hair on morning rounds 10/03 and agree with the assessment and plan as outlined in this note and participated in the planning of care. Mental status is slightly better, remains sedated but he is interactive and at least somewh at oriented. Enteral nutrition advancing and, as approaches goal, will turn TPN off. Place ment remains a significant issue. Fidelina Shields MD Cryptologic Supervisor Division of Trauma, Critical Care and Acute Care Surgery Office: [phone] Pager: [phone] July Banegas PA-C - 10/03/2017 12:58 PM [...] the C-collar when in bed then the ASSEMBLER MOLDED FRAMES when out of bed until 12/01/17. JULY BANEGAS PA-C [facility] [address] [place] [address] Associated attestation - Magdiel Stock MD - 10/04/2017 6:02 PM PDTI performed a history a nd physical examination of the patient and discussed the management with the advanced practi ce provider, July Banegas PA-C. I reviewed the advanced practice provider's note and agree w ith the plan of care as documented. Continue cervical collar and ASSEMBLER MOLDED FRAMES for 3 months to ensure fracture healing and prevent development of post-fracture cervical kyphosis. Magdiel Stock MD Cryptologic Supervisor Department of Neurological Surgery [facility] [place] Leoamalia Sherine Cleary, AGACNP - 10/02/2017 12:54 [...] (baseline from previous TBI ) Neck: in Hemet collar Respiratory: CTA bilaterally, lungs symmetrical, equal chest wall rise, no retractions CV: RRR GI: non tender, soft, active BS, last BM 09/30 : Patient voiding without difficulty Extremities: no peripheral edema, wiggles toes and toes pink and well perfused Musculoskeletal: 5/5 memory care program resident strength on right, 3/5 memory care program resident strength on left FEN: on TPN, transitioning [...] AMS & delirium - numerous evaluations by LAW FIRM RECEPTIONIST with trials of PO - now s/p [...] . - C-collar at all times, use ASSEMBLER MOLDED FRAMES when OOB - Follow-up with Neurosurgery on 10/21 with repeat X-rays #Blunt abdominal trauma #Splenic laceration S/p laparotomies x2. Fascia closed 09/02 Wound vac removed by patient, but wound remains duke n/dry/intact. [place] removed 09/17. #Left hemothorax Chest tube placed [...] will decrease scheduled [place]dol[place] Pg [phone] Associated attestation - Fidelina Shields MD - 10/02/2017 4:40 PM PDTAttending: I saw and examined Berlin Temple ([id number]) with KESHAWN Alexander on mornin g rounds [...] back to midline position. May need terminal system operator enteral access , but is ~4 weeks s/p damage control laparotomy and risk is higher now than it will be in 7- 14 days and if swallow is not improving then will place prior to DC Fidelina Shields MD Cryptologic Supervisor Division of Trauma, Critical Care and Acute Care Surgery Office: [phone] Pager: [phone] Sherine Sarmiento AGACNP - 10/01/2017 7:27 AM [...] (baseline from previous TBI ) Neck: in Hemet collar Respiratory: CTA bilaterally, lungs symmetrical, equal chest wall rise, no retractions CV: RRR GI: non tender, soft, active BS, last BM 09/30 : Patient voiding without difficulty Extremities: no peripheral edema, wiggles toes and toes pink and well perfused Musculoskeletal: 5/5 memory care program resident strength on right, 3/5 memory care program resident strength on left FEN: on TPN Heme/ID: [...] AMS & delirium - numerous evaluations by LAW FIRM RECEPTIONIST with trials of PO - now s/p modified barium swallow x2 which indicates aspiration - continue NPO - LAW FIRM RECEPTIONIST reports that patient working on tongue strength [...] . - C-collar at all times, use ASSEMBLER MOLDED FRAMES when OOB - Follow-up with Neurosurgery on [...] trauma team and [place]g [phone] Associated attestation - Fidelina Shields MD - 10/02/2017 4:40 PM PDTAttending: I saw and examined Berlin Temple ([id number]) with KESHAWN Alexander on mornin g rounds 10/01/17 and agree with the assessment and plan as outlined in this note and partic ipated in the planning of care. Will trial DHT placement today, CT head unchanged. Suspect somnolence is medication side ef fect and, if persistent, may need to wean antipsychotic doses. Fidelina Shields MD Cryptologic Supervisor Division of Trauma, Critical Care and Acute Care Surgery Office: [phone] Pager: [phone] Christian Kelley PA-C - 09/30/2017 12:21 PM [...] Fixed and dilated on left Neck: in Hemet collar Respiratory: CTA bilaterally, lungs symmetrical, equal chest wall rise, no retractions CV: RRR GI: non tender, soft, active BS, last BM 09/30 : Patient voiding without difficulty Extremities: no peripheral edema, wiggles toes and toes pink and well perfused Musculoskeletal: 5/5 memory care program resident strength on right, 3/5 memory care program resident strength on left FEN: on TPN Heme/ID: [...] AMS & delirium - numerous evaluations by LAW FIRM RECEPTIONIST with trials of PO - now s/p modified barium swallow x2 which indicates aspiration - continue NPO - LAW FIRM RECEPTIONIST reports that patient working on tongue strength [...] . - C-collar at all times, use ASSEMBLER MOLDED FRAMES when OOB - Follow-up with Neurosurgery on [...] PDTAttending: I saw and examined Berlin Temple ([id number]) with Christian Kelley PA-C on morning rounds 09/30 and agree with the assessment and plan as outlined in this note and participated in the planning of care. Mentally slower this morning, but non-focal. Received haldol overnight for sleep. Repeat head CT was unchanged so suspect etiology of slowed responsiveness is the antipsychotic dose . LAW FIRM RECEPTIONIST believes that, once collar off, may be able to take PO more effectively and thus will hold off on surgical feeding access. TPN is a temporary solution and if patient remains kaye nable will trial DHT tomorrow. Working with psychiatry for medication recommendations. Fidelina Shields MD Cryptologic Supervisor Division of Trauma, Critical Care and Acute Care Surgery Office: [phone] Pager: [phone] July Banegas PA-C - 09/30/2017 8:23 AM PDTBrief Neurosurgery Wound Check: Wound is dry, without erythema, not fluctuant. No acute swelling. Nylon in place. Will plan to follow peripherally for wound checks and remove nylons on 10/09. JULY BANEGAS PA-C [facility] [address] [place] [address] Christian Kelley PA-C - 09/29/2017 7:15 AM [...] and EOMs intact to exam Neck: in Hemet collar Respiratory: CTA bilaterally, lungs symmetrical, equal [...] AMS & delirium - numerous evaluations by LAW FIRM RECEPTIONIST with trials of PO - now s/p [...] . - C-collar at all times, use ASSEMBLER MOLDED FRAMES when OOB - Follow-up with Neurosurgery on [...] PDTAttending: I saw and examined Berlin Temple ([id number]) with Christian Kelley PA-C on morning rounds [...] TPN is not an opt imal terminal system operator strategy, would prefer not to place surgical feeding tube if possible given r elatively recent damage control laparotomy and high risk of Mr. Temple pulling it out. Have tried DHT several times and it seems to worsen delirium and he pulls it out frequently. Tit ration of haldol in conjunction with psychiatry. Fidelina Shields MD Cryptologic Supervisor Division of Trauma, Critical Care and Acute Care Surgery Office: [phone] Pager: [phone] Christian Kelley PA-C - 09/28/2017 1:01 PM [...] he said, who, ariel? And then the AUTO TESTER helped him make a call to her. [...] and EOMs intact to exam Neck: in Hemet collar Respiratory: CTA bilaterally, lungs symmetrical, equal [...] very agitated today. - EKG today with Ephraim QTc calculated to be 428 - optimize [...] AMS & delirium - numerous evaluations by LAW FIRM RECEPTIONIST with trials of PO - now s/p [...] . - C-collar at all times, use ASSEMBLER MOLDED FRAMES when OOB - Follow-up with Neurosurgery on 10/21 with repeat X-rays #Blunt abdominal trauma #Splenic laceration S/p laparotomies x2. Fascia closed 09/02 Wound vac removed by patient, but wound remains duke n/dry/intact. [place] removed 09/17. #Left hemothorax Chest tube placed [...] to communicate more toyoselin Munoz MD, FACS Cryptologic Supervisor, Trauma, Critical Care and Acute Care Surgery Chaz Munzo MD - 09/28/2017 10:13 AM PDTTrauma Staff Seen and examined this AM with team. I have concerns abotu behaviour, as he is consistently threatening RN and ancillary staff, even attempting swings. Behavior seems worse at night. I would favor increasing night time Haldol dose, and following EKGs. Chaz Munoz MD, FACS Cryptologic Supervisor, Trauma, Critical Care and Acute Care [...] Dallin Bourgeois MD Neurosurgery PGY1 | Pager #[phone] Christian Kelley PA-C - 09/27/2017 7:31 AM [...] able to have a linear conversation briefly LAW FIRM RECEPTIONIST requesting repeat barium swallow Current meds: I [...] incision healing , suture c/d/I Neck: in ASSEMBLER MOLDED FRAMES Respiratory: unlabored on room air, lungs symmetrical, [...] AMS & delirium - numerous evaluations by LAW FIRM RECEPTIONIST with trials of PO - now s/p [...] . - C-collar at all times, use ASSEMBLER MOLDED FRAMES when OOB - Follow-up with Neurosurgery on 10/21 with repeat X-rays #Blunt abdominal trauma #Splenic laceration S/p laparotomies x2. Fascia closed 09/02 Wound vac removed by patient, but wound remains duke n/dry/intact. [place] removed 09/17. #Left hemothorax Chest tube placed [...] cotinue TPN for now. EM CUNNINGHAM MD [facility] [address] [facility] [place] [address] Christian Kelley PA-C - 09/26/2017 6:48 AM [...] posterior scalp crani incision c/d/I Neck: in Hemet collar Respiratory: unlabored on room air CV: [...] AMS & delirium - numerous evaluations by LAW FIRM RECEPTIONIST with trials of PO - now s/p [...] . - C-collar at all times, use ASSEMBLER MOLDED FRAMES when OOB - Follow-up with Neurosurgery on 10/21 with repeat X-rays #Blunt abdominal trauma #Splenic laceration S/p laparotomies x2. Fascia closed 09/02 Wound vac removed by patient, but wound remains duke n/dry/intact. [place] removed 09/17. #Left hemothorax Chest tube placed [...] Continue NPO and TPN. EM CUNNINGHAM MD [facility] [address] [place] [address] Christian Kelley PA-C - 09/25/2017 7:49 AM [...] HEENT: EOMs intact to exam Neck: in ASSEMBLER MOLDED FRAMES brace Respiratory: unlabored on room air CV: [...] AMS & delirium - numerous evaluations by LAW FIRM RECEPTIONIST with trials of PO - now s/p [...] . - C-collar at all times, use ASSEMBLER MOLDED FRAMES when OOB - Follow-up with Neurosurgery on 10/21 with repeat X-rays #Blunt abdominal trauma #Splenic laceration S/p laparotomies x2. Fascia closed 09/02 Wound vac removed by patient, but wound remains duke n/dry/intact. [place] removed 09/17. #Left hemothorax Chest tube placed [...] LFTS wnl. Continue TPN. EM CUNNINGHAM MD [facility] [address] [place] [address] Christian Kelley PA-C - 09/24/2017 11:07 AM [...] with agitation Having difficulty swallowing again - LAW FIRM RECEPTIONIST to re-eval and obtain barium swallow Current [...] HEENT: EOMs intact to exam Neck: in ASSEMBLER MOLDED FRAMES brace Respiratory: CTA bilaterally, lungs symmetrical, equal chest wall rise, no retractions CV: RRR GI: non distended, last BM 09/23 : good urine output Extremities: SCD's in place, no peripheral edema, wiggles toes and toes pink and well perfu sed Musculoskeletal: 5/5 strength in bilateral memory care program resident (but with slightly weaker on left) , [...] likely 2/2 AMS & delirium - Failed LAW FIRM RECEPTIONIST eval 09/19 & 09/20, made NPO & dobhoff reinserted 09/21 but pulled overnight - Per LAW FIRM RECEPTIONIST on 09/21, ok for therapeutic pureed with [...] . - C-collar at all times, use ASSEMBLER MOLDED FRAMES when OOB - Follow-up with Neurosurgery on 10/21 with repeat X-rays #Blunt abdominal trauma #Splenic laceration S/p laparotomies x2. Fascia closed 09/02 Wound vac removed by patient, but wound remains duke n/dry/intact. [place] removed 09/17. #Left hemothorax Chest tube placed [...] Start abx for dehiscence. EM CUNNINGHAM MD [facility] [address] [place] [address] Ginette Campos PA-C - 09/24/2017 9:31 AM [...] 4 extremities Unable to assess drift. Motor: Rack Production Worker Bicep Tricep Delt R 5 5 5 [...] further questions or concerns. Ginette Campos PA-C [facility] [address] [place] [address] Pg [phone] Sherine Sarmiento, [facility] - 09/23/2017 6:32 AM PDTFormatting of this [...] hiscence, draining minimal serosang fluid Neck: in ASSEMBLER MOLDED FRAMES brace Respiratory: unlabored on room air CV: [...] likely 2/2 AMS & delirium - Failed LAW FIRM RECEPTIONIST eval 09/19 & 09/20, made NPO & dobhoff reinserted 09/21 but pulled overnight - Per LAW FIRM RECEPTIONIST on 09/21, ok for therapeutic pureed with [...] . - C-collar at all times, use ASSEMBLER MOLDED FRAMES when OOB - Follow-up with Neurosurgery on 10/21 with repeat X-rays #Blunt abdominal trauma #Splenic laceration S/p laparotomies x2. Fascia closed 09/02 Wound vac removed by patient, but wound remains duke n/dry/intact. [place] removed 09/17. #Left hemothorax Chest tube placed [...] dysphagia & delir ium improves Sherine Sarmiento, [facility] [place] [phone] Dallin Bourgeois MD - 09/22/2017 8:03 AM [...] Dallin Bourgeois MD Neurosurgery PGY1 | Pager #[phone] Sherine Sarmiento AGACN - 09/22/2017 6:52 AM [...] 24hr events: - Therapeutic purees initiated by LAW FIRM RECEPTIONIST yesterday - Trickle feeds via Dobbhoff, pt pulled Dobbhoff yesterday evening- not replaced - CONTRACT PROCESSOR called around 2129 for new left facial droop (see separate notes), CT revealed increa se in SDH from 12 to 17mm with no change in midline shift. [facility] and stroke team [...] sluggish. Slight left facial droop Neck: in Hemet collar Respiratory: unlabored on room air CV: [...] likely 2/2 AMS & delirium - Failed LAW FIRM RECEPTIONIST eval 09/19 & 09/20, made NPO & dobhoff reinserted 09/21 but pulled overnight - Per LAW FIRM RECEPTIONIST on 09/21, ok for therapeutic pureed with [...] . - C-collar at all times, use ASSEMBLER MOLDED FRAMES when OOB - Follow-up with Neurosurgery on 10/21 with repeat X-rays #Blunt abdominal trauma #Splenic laceration S/p laparotomies x2. Fascia closed 09/02 Wound vac removed by patient, but wound remains duke n/dry/intact. [place] removed 09/17. #Left hemothorax Chest tube placed [...] when dysphagia & delirium improves Sherine Sarmiento, [facility] [place]g [phone] Associated attestation - Shiva Nieto MD,MPH - 09/22/2017 9:39 PM PDTATTENDING PROGRES S NOTE I personally interviewed and examined the patient today with the trauma team and the nurse practitioner. I participated in the development of and agree with the assessment and plan a s outlined [facility]. Adding seroquel qHS for sleep hygiene. Shiva Nieto MD, MPH Trauma, Critical Care & Acute Care Surgery [facility] [phone] Sami Black - 09/21/2017 10:25 PM PDTBrief [...] in the morning. Plan: -neuro checks; page [phone] for any decline in neurological examination -pain control -Hard C collar at all times and place ASSEMBLER MOLDED FRAMES prior to mobilizing OOB. Anticipated duration of Collar/ASSEMBLER MOLDED FRAMES is 12 weeks -repeat CT head for any new decline in neurological exam and page [phone] -NPO at midnight tonight -please hold tonight's planned dose of Lovenox -further recommendations in the morning Sami Black MD, PhD PGY-3 Resident Neurosurgery [id number] estrella AGACNP - 09/21/2017 7:10 AM PDTFormatting [...] Provena placem ent 24hr events: - Failed LAW FIRM RECEPTIONIST eval again yest morning, continued NPO - [...] reactive. Dobbhoff tube in place Neck: in Hemet collar Respiratory: unlabored on room air CV: [...] likely 2/2 AMS & delirium - Failed LAW FIRM RECEPTIONIST eval 09/19 & 09/20, made NPO & dobhoff reinserted yesterday - Trickle feeds started this am at 20ml/hr, increase very slowly by 10ml every 12 hrs to go al of 75 due to hx of mesenteric hematomas and previous inability to tolerate TF - Per LAW FIRM RECEPTIONIST today, ok for therapeutic pureed with nectar [...] . - C-collar at all times, use ASSEMBLER MOLDED FRAMES when OOB - Follow-up with Neurosurgery on 10/21 with repeat X-rays #Blunt abdominal trauma #Splenic laceration S/p laparotomies x2. Fascia closed 09/02 Wound vac removed by patient, but wound remains duke n/dry/intact. [place] removed 09/17. #Left hemothorax Chest tube placed [...] & [place]ium [place] [phone] Associated attestation - Fidelina Shields MD - 09/21/2017 9:36 PM PDTAttending: I saw and examined Berlin Temple ([id number]) with KESHAWN Alexander on mornin g rounds [...] enough to re-trial PO. Fidelina Shields MD Cryptologic Supervisor Division of Trauma, Critical Care and Acute Care Surgery Office: [phone] Pager: [phone] Sherine Sarmiento AGACNP - 09/20/2017 7:41 AM [...] haldol given yesterday afternoon for agitation - LAW FIRM RECEPTIONIST paged to re-eval in afternoon after concern for aspiration, made NPO by LAW FIRM RECEPTIONIST - DARNELL SOLANO Current meds: I have [...] right pupil 3 and reactive Neck: in Hemet collar Respiratory: unlabored on room air CV: [...] thick/pureed d iet. Made NPO yesterday by LAW FIRM RECEPTIONIST after concern for aspiration. This is likely 2/2 waxing & wan ing delirium & AMS - LAW FIRM RECEPTIONIST re-eval today recommend continue NPO d/t overt clinical signs of aspiration - Place Dobbhoff tube and restart feeds, slowly progress to goal - Stop TPN when tolerating tube feeds - LAW FIRM RECEPTIONIST will follow closely, as his AMS improves [...] . - C-collar at all times, use ASSEMBLER MOLDED FRAMES when OOB - Follow-up with Neurosurgery on 10/21 with repeat X-rays #Blunt abdominal trauma #Splenic laceration S/p laparotomies x2. Fascia closed 09/02 Wound vac removed by patient, but wound remains duke n/dry/intact. [place] removed 09/17. #Left hemothorax Chest tube placed [...] & delirium [place]g [phone] Associated attestation - Fidelina Shields MD - 09/20/2017 9:34 PM PDTAttending: I saw and examined Berlin Temple ([id number]) with KESHAWN Alexander on mornin g rounds [...] dispo planning when able. Fidelina Shields MD Cryptologic Supervisor Division of Trauma, Critical Care and Acute Care Surgery Office: [phone] Pager: [phone] Mary Medrano MD,MPH - 09/19/2017 6:22 AM [...] downgraded from thin to thick liquids by LAW FIRM RECEPTIONIST Current meds: I have independently reviewed current [...] intact, small Right fluctuant pseudomeningocele Neck: in Hemet collar Respiratory: unlabored on room air CV: [...] DHT on09/19. - Cleared for diet by LAW FIRM RECEPTIONIST, tolerating purees, 749 Calories yesterday - Restart Calorie count: if taking >700 again will be OK for full po diet, otherwise replac e DHT and restart TF - Stop TPN tomorrow regardless - Still considering repeat CT abdomen/pelvis #Dysphagia DHTreplaced overnight 09/07. TF held due to emesis and possible ileus, aspiration risk. DH T pulled overnight on 09/18 - LAW FIRM RECEPTIONIST as able Resolved or chronic issues/Plan: #BIG 3 TBI #Right synthetic cranioplasty Neurosurgery consulted. Non-operative management. Last head CT 09/12 stable. Expected pseudo meningocele. Left-sided deficits consistent with baseline. - Stat head CT for any neurologic decline #C7 bilateral lamina fractures #C6-T2 spinous process fractures Neurosurgery consulted. Non-operative management. Upright cervical X-rays completed on 09/14 . - C-collar at all times, use ASSEMBLER MOLDED FRAMES when OOB - Follow-up with Neurosurgery on 10/21 with repeat X-rays #Blunt abdominal trauma #Splenic laceration S/p laparotomies x2. Fascia closed 09/02 Wound vac removed by patient, but wound remains duke n/dry/intact. [place] removed 09/17. #Left hemothorax Chest tube placed [...] M.D., M.P.H. Neurological Surgery Resident PGY-1 Pager: [phone] Associated attestation - Fidelina Shields MD - 09/19/2017 1:36 PM PDTAttending: I saw and examined Berlin Temple ([id number]) with the residents on morning rounds 09/19/17 and agree with the assessment and plan as outlined in this note and participated in the plan aashish of care. Improving po intake, will titrate TPN. Plan to DC TPN tomorrow and transition to PO vs PO + TF depending on calorie counts. Once of restraints will begin looking for placement. Fidelina Shields MD Cryptologic Supervisor Division of Trauma, Critical Care and Acute Care Surgery Office: [phone] Pager: [phone] Mary Medrano MD,MPH - 09/18/2017 6:17 AM [...] fluctuant pseudomeningocele,Dobhoff tubein p lace Neck: in Hemet collar Respiratory: unlabored on room air CV: [...] holding TF - Cleared for diet by LAW FIRM RECEPTIONIST, tolerating small quantities of purees - Will need repeat CT A/P within 1-2 days #Hypervolemia I&O approaching even. Appears to have been auto-diuresing. - Continue to monitor urine output - Monitor electrolytes, replete prn #Dysphagia DHTreplaced overnight 09/07. TF held due to emesis and possible ileus, aspiration risk. - LAW FIRM RECEPTIONIST as able #C7 bilateral lamina fractures #C6-T2 spinous process fractures Neurosurgery consulted. Non-operative management. Upright cervical X-rays completed on 09/14 . - C-collar at all times, use ASSEMBLER MOLDED FRAMES when OOB - Follow-up with Neurosurgery on [...] by patient,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 [facility] | | | [place] [address] | + + + + + | [...] | + + + | Blood | [facility], CORE [address] [place] [address] | | | [place], [place] [address] | + + + RENAL FUNCTION SET [...] | >60 | >60 mL/min | | SURINAMESE | | | + + + + | EGFR NON | >60 | >60 mL/min | | -SURINAMESE | | | + + + + [...] | + + + | Blood | [facility], CORE [address] | | | [place] [address] | + + + + + | [...] | + + + | Blood | [facility], CORE [address] [facility] | | | [place] [address] | + + + + + | [...] Laboratory | + + + | | [facility] [address] [place] [address] | | | [place] [address] | + + + 12 LEAD ECG [...] Laboratory | + + + | | [facility] [address] [place] [address] | | | [place] [address] | + + + 12 LEAD ECG [...] Laboratory | + + + | | [facility] [address] [place] [address] | | | [place] [address] | + + + 12 LEAD ECG [...] Laboratory | + + + | | [facility] [address] [place] [address] | | | [place] [address] | + + + X-RAY SPINE CERVICAL 3 VIEWS (11/21/2017 2:23 PM) + + + | Specimen | Performing Laboratory | + + + | | [facility] RADIOLOGY VOICE RECOGNITION 2 | [...] | >60 | >60 mL/min | | SURINAMESE | | | + + + + | EGFR NON | >60 | >60 mL/min | | -SURINAMESE | | | + + + + [...] | + + + | Blood | [facility], CORE [address] [facility] | | | [place] [address] | + + + + + | [...] | + + + | Blood | [facility], CORE [address] | | | [place] [address] | + + + + + | Narrative | + + | Reference range change effective 12/11/16. | + + VASC LAB VENOUS DUPLEX LOWER EXTREMITY BILAT COMP (11/19/2017 11:05 AM) + + + | Specimen | Performing Laboratory | + + + | | [facility] RADIOLOGY VASC US | + + + [...] Laboratory | + + + | | [facility] [address] [place] [address] | | | [place] [address] | + + + 12 LEAD ECG [...] Laboratory | + + + | | [facility] [address] [place] [address] | | | [place] [address] | + + + CALCIUM, IONIZED, WHOLE [...] | + + + | Blood | [facility] LABORATORY [facility], CORE [address] [facility] | | | [place] [address] | + + + C-REACTIVE PROTEIN (11/18/2017 7:45 AM) + +-------+ + | Component | Value | Ref Range | + +-------+ + | C-REACTIVE PROTEIN | <2.9 | <10.0 mg/L | + +-------+ + + + + | Specimen | Performing Laboratory | + + + | Blood | [facility], CORE [address] [facility] | | | [place] [address] | + + + + + | [...] | + + + | Blood | [facility] [address] [place], [place] | | | [address] | + + + TRIGLYCERIDES, PLASMA (11/18/2017 7:45 AM) + +---------+ + | Component | Value | Ref Range | + +---------+ + | TRIGLYCERIDES | 162 (H) | <150 mg/dL | + +---------+ + + + + | Specimen | Performing Laboratory | + + + | Blood | [facility], CORE [address] | | | [place] [address] | + + + + + | [...] | + + + | Blood | [facility], CORE [address] [place] [address] | | | [place] [address] | + + + RENAL FUNCTION SET [...] | >60 | >60 mL/min | | SURINAMESE | | | + + + + | EGFR NON | >60 | >60 mL/min | | -SURINAMESE | | | + + + + [...] | + + + | Blood | [facility] SERVICES, [facility] [address] | | | [place] [address] | [...] | + + + | Blood | [facility], CORE [address] [place] [address] | | | [place] [address] | + + + + + | [...] | + + + | | [facility] [address] [place] [address] | | | [place] [address] | + + + 12 LEAD ECG [...] Laboratory | + + + | | [facility] [address] [place] [address] | | | [place] [address] | + + + CBC (HEMOGRAM) ONLY [...] | + + + | Blood | [facility], CORE [address] [facility] | | | [place] [address] | + + + + + | [...] | | ------ CBC (HEMOGRAM) | | ONLY[[id number]] Abnormal Final | | result Please view [...] Laboratory | + + + | | [facility] DEPT OF CARDIOLOGY [address] [place] [address] | | | [place] [address] | + + + RENAL FUNCTION SET [...] | >60 | >60 mL/min | | SURINAMESE | | | + + + + | EGFR NON | >60 | >60 mL/min | | -SURINAMESE | | | + + + + [...] | + + + | Blood | [facility], CORE [address] | | | [place] [address] | + + + + + | [...] | + + + | Blood | [facility] SERVICES, CORE [address] | | | [place] [address] | + + + + + | [...] Laboratory | + + + | | [facility] [address] [place] [address] | | | [place] [address] | + + + MAGNESIUM, PLASMA (11/13/2017 5:47 AM) + +-------+ + | Component | Value | Ref Range | + +-------+ + | MAGNESIUM,PLASMA | 2.1 | 1.6 - 2.6 mg/dL | + +-------+ + + + + | Specimen | Performing Laboratory | + + + | Blood | [facility] SERVICES, CORE [address] | | | [place] [address] | + + + + + | [...] | >60 | >60 mL/min | | SURINAMESE | | | + + + + | EGFR NON | >60 | >60 mL/min | | -SURINAMESE | | | + + + + [...] | + + + | Blood | [facility], CORE [address] [facility] | | | [place] [address] | + + + + + | [...] | + + + | Urine | [facility] [address] [place], [place] | | | [address] | + + + VASC LAB VENOUS [...] Laboratory | + + + | | [facility] [address] [place] [address] | | | [place] [address] | + + + CT CHEST, ABDOMEN AND PELVIS W IV CONTRAST (11/11/2017 6:57 PM) + + + | Specimen | Performing Laboratory | + + + | | [facility] RADIOLOGY VOICE RECOGNITION 2 | [...] | + + + | Blood | [facility], CORE [address] | | | [place] [address] | + + + PROTEIN ELECTROPHORESIS, SERUM, [...] | + + + | Blood | [facility] [address] [place], [place] | | | [address] | + + + 12 LEAD ECG [...] Laboratory | + + + | | [facility] [address] [place] [address] | | | [place] [address] | + + + C-REACTIVE PROTEIN (11/11/2017 9:06 AM) + +-------+ + | Component | Value | Ref Range | + +-------+ + | C-REACTIVE PROTEIN | <2.9 | <10.0 mg/L | + +-------+ + + + + | Specimen | Performing Laboratory | + + + | Blood | [facility], CORE [address] [facility] | | | [place] [address] | + + + + + | [...] | + + + | Blood | [facility] [place] [address] [place], [place] | | | [address] | + + + TRIGLYCERIDES, PLASMA (11/11/2017 9:06 AM) + +-------+ + | Component | Value | Ref Range | + +-------+ + | TRIGLYCERIDES | 117 | <150 mg/dL | + +-------+ + + + + | Specimen | Performing Laboratory | + + + | Blood | [facility], CORE [address] [facility] | | | [place] [address] | + + + + + | [...] | + + + | Blood | [facility], CORE [address] [place] [address] | | | [place] [address] | + + + LIVER SET (AST,ALT,BILI [...] | + + + | Blood | [facility], CORE [address] [facility] | | | [place] [address] | + + + RENAL FUNCTION SET [...] | >60 | >60 mL/min | | SURINAMESE | | | + + + + | EGFR NON | >60 | >60 mL/min | | -SURINAMESE | | | + + + + [...] | + + + | Blood | [facility], CORE [address] [facility] | | | [place] [address] | + + + + + | [...] | + + + | Blood | [facility], CORE [address] | | | [place] [address] | + + + + + | [...] | + + + | Blood | [facility], CORE [address] [facility] | | | [place] [address] | + + + + + | [...] | >60 | >60 mL/min | | SURINAMESE | | | + + + + | EGFR NON | >60 | >60 mL/min | | -SURINAMESE | | | + + + + [...] | + + + | Blood | [facility], CORE [address] [facility] | | | [place] [address] | + + + + + | [...] | + + + | | [facility] [address] [facility] | | | [place] [address] | + + + MAGNESIUM, PLASMA (11/10/2017 10:19 AM) + +-------+ + | Component | Value | Ref Range | + +-------+ + | MAGNESIUM,PLASMA | 2.0 | 1.6 - 2.6 mg/dL | + +-------+ + + + + | Specimen | Performing Laboratory | + + + | Blood | [facility], CORE [address] | | | [place] [address] | + + + + + | [...] | >60 | >60 mL/min | | SURINAMESE | | | + + + + | EGFR NON | >60 | >60 mL/min | | -SURINAMESE | | | + + + + [...] | + + + | Blood | [facility] LABORATORY [facility], CORE [address] [facility] | | | [place] [address] | + + + + + | [...] | + + + | Blood | [facility], CORE [address] [facility] | | | [place], [place] [address] | + + + + + | [...] | >60 | >60 mL/min | | SURINAMESE | | | + + + + | EGFR NON | >60 | >60 mL/min | | -SURINAMESE | | | + + + + [...] | + + + | Blood | [facility], CORE [address] | | | [place] [address] | + + + + + | [...] Laboratory | + + + | | [facility] RADIOLOGY VOICE RECOGNITION 2 | [...] | + + + | Blood | [facility], CORE [address] [facility] | | | [place] [address] | + + + + + | [...] | >60 | >60 mL/min | | SURINAMESE | | | + + + + | EGFR NON | >60 | >60 mL/min | | -SURINAMESE | | | + + + + [...] | + + + | Blood | [facility], CORE [address] [place] [address] | | | [place] [address] | + + + + + | [...] Laboratory | + + + | | [facility] [address] [place] [address] | | | [place] [address] | + + + CT HEAD WO CONTRAST (11/07/2017 3:43 PM) + + + | Specimen | Performing Laboratory | + + + | | [facility] RADIOLOGY VOICE RECOGNITION 2 | [...] Laboratory | + + + | | [facility] [address] [facility] | | | [place] [address] | + + + RENAL FUNCTION SET [...] | >60 | >60 mL/min | | SURINAMESE | | | + + + + | EGFR NON | >60 | >60 mL/min | | -SURINAMESE | | | + + + + [...] | + + + | Blood | [facility], CORE [address] [facility] | | | [place] [address] | + + + + + | [...] | + + + | Blood | [facility] LABORATORY [facility], CORE [address] | | | [place] [address] | + + + + + | [...] + + | PRODUCT UNIT # | [id number] | | + + + + | UNIT ABO | O | | + + + + | UNIT RH | POS | | + + + + | STATUS OF UNIT | Returned to Blood Bank | | + + + + | EXPIRATION DATE | [id number] | | + + + + | BLOOD TYPE BARCODE | 5100 | | + + + + | BLOOD PRODUCT CODE | [id number] | | + + + + + + + | Specimen | Performing Laboratory | + + + | | [facility] SERVICES, TRANSFUSION MEDICINE [address] | | | [place] [address] | + + + PRODUCT - RED CELLS LEUKOREDUCED (11/06/2017 8:03 AM) + + + + | Component | Value | Ref Range | + + + + | PRODUCT DESCRIPTION | -1 RED BLOOD CELL ADENINE-SALINE ADDED | | | | LEUKOCYTE | | + + + + | PRODUCT UNIT # | [id number] | | + + + + | UNIT ABO | O | | + + + + | UNIT RH | POS | | + + + + | STATUS OF UNIT | Returned to Blood Bank | | + + + + | EXPIRATION DATE | [id number] | | + + + + | BLOOD TYPE BARCODE | 5100 | | + + + + | BLOOD PRODUCT CODE | [id number] | | + + + + + + + | Specimen | Performing Laboratory | + + + | | [facility] SERVICES, TRANSFUSION MEDICINE [address] [place] [address] | | | [place] [address] | + + + CBC (HEMOGRAM) ONLY [...] | + + + | Blood | [facility] LABORATORY [facility], CORE [address] [facility] | | | [place] [address] | + + + + + | [...] | | ------ CBC (HEMOGRAM) | | ONLY[[id number]] Abnormal Final | | result Please view [...] | + + + | Blood | [facility], CORE [address] [place] [address] | | | [place] [address] | + + + + + | [...] | >60 | >60 mL/min | | SURINAMESE | | | + + + + | EGFR NON | >60 | >60 mL/min | | -SURINAMESE | | | + + + + [...] | + + + | Blood | [facility] LABORATORY [facility], [facility] [address] [facility] | | | [place] [address] | + + + + + | [...] Attending | | Surgeon: Magdiel Stock MD Medical Lab Technician(s): Rg Aiken MD | | Preoperative [...] his head was placed in a horseshoe automatic head sawyer with his C-collar still | | attached [...] the incision down to the cranium. Once [place] | | skull was reached circumferentially around the prior incision, a #[facility] [place] was used | | to subperiosteally dissect [...] note for this encounter.Sonal Nunez, | | NCD[id number] [place], [place] | | [phone] Orina, MDJB/MODLDD: 11/05/2017 20:38:01DT: 11/06/2017 | | 00:27:33Jo #: [id number] | |HATTIE/DUC | | | | | | /[id number] | + + CT HEAD WO CONTRAST [...] Note | + + | Service Account, [employer] Res In Interface - 11/05/2017 8:20 PM [...] | nursing staff. Surgeon: Magdiel Stock MD Medical Lab Technician: Rg Aiken MD | | Pre-op Diagnosis: [...] | MD Attila PGY-4 Neurological Surgery Pager [phone] | + + CAPILLARY BLOOD GLUCOSE (NO [...] [address] | | | [place] [address] | + + + CAPILLARY BLOOD GLUCOSE (NO CHG), POC (11/05/2017 1:33 PM) + +---------+ + | Component | Value | Ref Range | + +---------+ + | BLOOD GLUCOSE, POC | 103 (H) | 70 - 99 mg/dL | + +---------+ + + + + | Specimen | Performing Laboratory | + + + | | [facility] POINT [facility] CARE TESTS [address] | | | [place] [address] | + + + VASC LAB VENOUS [...] Note | + + | Service Account, Sudox Paints Res In Interface - 11/05/2017 11:31 AM [...] | + + + | Blood | [facility], CORE [address] [facility] | | | [place] [address] | + + + + + | [...] | + + + | Blood | [facility], CORE [address] [facility] | | | [facility] [place] [address] | + + + + + | [...] | >60 | >60 mL/min | | SURINAMESE | | | + + + + | EGFR NON | >60 | >60 mL/min | | -SURINAMESE | | | + + + + [...] | + + + | Blood | [facility], [address] [facility] | | | [place] [address] | + + + + + | [...] | + + + | Blood | [facility], [address] [facility] | | | [place] [address] | + + + + + | [...] | | ------ CBC (HEMOGRAM) | | ONLY[[id number]] Abnormal Final | | result Please view [...] + + | PRODUCT UNIT # | [id number] | | + + + + | UNIT ABO | O | | + + + + | UNIT RH | POS | | + + + + | STATUS OF UNIT | Returned to Blood Bank | | + + + + | EXPIRATION DATE | [id number] | | + + + + | BLOOD TYPE BARCODE | 5100 | | + + + + | BLOOD PRODUCT CODE | [id number] | | + + + + + + + | Specimen | Performing Laboratory | + + + | | [facility], TRANSFUSION MEDICINE [address] [facility] | | | [place] [address] | + + + PRODUCT - RED CELLS LEUKOREDUCED (11/04/2017 8:19 PM) + + + + | Component | Value | Ref Range | + + + + | PRODUCT DESCRIPTION | -1 RED BLOOD CELL ADENINE-SALINE ADDED | | | | LEUKOCYTE | | + + + + | PRODUCT UNIT # | [id number] | | + + + + | UNIT ABO | O | | + + + + | UNIT RH | POS | | + + + + | STATUS OF UNIT | Returned to Blood Bank | | + + + + | EXPIRATION DATE | [id number] | | + + + + | BLOOD TYPE BARCODE | 5100 | | + + + + | BLOOD PRODUCT CODE | [id number] | | + + + + + + + | Specimen | Performing Laboratory | + + + | | [facility] LAB[facility] SERVICES, TRANSFUSION MEDICINE [address] | | | [place] [address] | + + + CBC (HEMOGRAM) ONLY [...] | + + + | Blood | [facility], CORE [address] [facility] | | | [place] [address] | + + + + + | [...] | + + + | Blood | [facility] SERVICES, TRANSFUSION MEDICINE [address] [facility] | | | [place] [address] | + + + ABO & RH [...] | + + + | Blood | [facility] SERVICES, TRANSFUSION MEDICINE [address] | | | [place] [address] | + + + TYPE AND SCREEN [...] | ------ ABO & RH | | TYPE[[id number]] F | | inal result ANTIBODY | | SCREEN[[id number]] Fin | | al result Please view [...] | + + + | Blood | [facility], CORE [address] [place] [address] | | | [place] [address] | + + + + + | [...] | | ------ CBC (HEMOGRAM) | | ONLY[[id number]] Abnormal Final | | result Please view [...] Laboratory | + + + | | [facility] [address] [place] [address] | | | [place] [address] | + + + CALCIUM, IONIZED, WHOLE [...] | + + + | Blood | [facility], CORE [address] [place] [address] | | | [place] [address] | + + + C-REACTIVE PROTEIN (11/04/2017 5:59 AM) + +-------+ + | Component | Value | Ref Range | + +-------+ + | C-REACTIVE PROTEIN | <2.9 | <10.0 mg/L | + +-------+ + + + + | Specimen | Performing Laboratory | + + + | Blood | [facility], CORE [address] [facility] | | | [place] [address] | + + + + + | [...] + + + | Blood | [facility] [address] [place], [place] | | | [address] | + + + TRIGLYCERIDES, PLASMA (11/04/2017 5:59 AM) + +-------+ + | Component | Value | Ref Range | + +-------+ + | TRIGLYCERIDES | 111 | <150 mg/dL | + +-------+ + + + + | Specimen | Performing Laboratory | + + + | Blood | [facility], CORE [address] | | | [place] [address] | + + + + + | [...] | + + + | Blood | [facility], CORE [address] [facility] | | | [place] [address] | + + + RENAL FUNCTION SET [...] | >60 | >60 mL/min | | SURINAMESE | | | + + + + | EGFR NON | >60 | >60 mL/min | | -SURINAMESE | | | + + + + [...] | + + + | Blood | [facility], [facility] [address] [facility] | | | [place] [address] | + + + + + | [...] | + + + | Blood | [facility], CORE [address] [place] [address] | | | [place] [address] | + + + + + | [...] | + + + | Blood | [facility], CORE [address] [facility] | | | [place] [address] | + + + + + | [...] | >60 | >60 mL/min | | SURINAMESE | | | + + + + | EGFR NON | >60 | >60 mL/min | | -SURINAMESE | | | + + + + [...] | + + + | Blood | [facility], CORE [address] [facility] | | | [place] [address] | + + + + + | [...] | + + + | Blood | [facility], CORE [address] [facility] [address] | | | [place] [address] | + + + + + | [...] | >60 | >60 mL/min | | SURINAMESE | | | + + + + | EGFR NON | >60 | >60 mL/min | | -SURINAMESE | | | + + + + [...] | + + + | Blood | [facility], CORE [address] [facility] | | | [place] [address] | + + + + + | [...] Laboratory | + + + | | [facility] [address] [place] [address] | | | [place] [address] | + + + MAGNESIUM, PLASMA (11/01/2017 4:40 AM) + +-------+ + | Component | Value | Ref Range | + +-------+ + | MAGNESIUM,PLASMA | 2.0 | 1.6 - 2.6 mg/dL | + +-------+ + + + + | Specimen | Performing Laboratory | + + + | Blood | [facility], CORE [address] [facility] | | | [place] [address] | + + + + + | [...] | >60 | >60 mL/min | | SURINAMESE | | | + + + + | EGFR NON | >60 | >60 mL/min | | -SURINAMESE | | | + + + + [...] | + + + | Blood | [facility], CORE [address] [facility] [address] | | | [place] [address] | + + + + + | [...] Laboratory | + + + | | [facility] RADIOLOGY VOICE RECOGNITION 2 | [...] Laboratory | + + + | | [facility] [address] [place] [address] | | | [place] [address] | + + + RENAL FUNCTION SET [...] | >60 | >60 mL/min | | SURINAMESE | | | + + + + | EGFR NON | >60 | >60 mL/min | | -SURINAMESE | | | + + + + [...] | + + + | Blood | [facility], CORE [address] [facility] | | | [place] [address] | + + + + + | [...] | + + + | Blood | [facility], CORE [address] [facility] | | | [place] [address] | + + + + + | [...] [address] | | | [place] [address] | + + + MAGNESIUM, PLASMA (10/30/2017 5:29 AM) + +-------+ + | Component | Value | Ref Range | + +-------+ + | MAGNESIUM,PLASMA | 1.8 | 1.6 - 2.6 mg/dL | + +-------+ + + + + | Specimen | Performing Laboratory | + + + | Blood | [facility], CORE [address] [place] [address] | | | [place] [address] | + + + + + | [...] | >60 | >60 mL/min | | SURINAMESE | | | + + + + | EGFR NON | >60 | >60 mL/min | | -SURINAMESE | | | + + + + [...] | + + + | Blood | [facility], CORE [address] [facility] | | | [place] [address] | + + + + + | [...] | | muscle-wasting diseses | + + [facility] LAB VENOUS DUPLEX LOWER EXTREMITY BILAT COMP (10/29/2017 8:56 AM) + + + | Specimen | Performing Laboratory | + + + | | [facility] RADIOLOGY [facility] US | + + + [...] Note | + + | Service Account, [employer] Paints Res In Interface - 10/29/2017 12:13 PM [...] [address] | | | [place] [address] | + + + MAGNESIUM, PLASMA (10/29/2017 6:19 AM) + +-------+ + | Component | Value | Ref Range | + +-------+ + | MAGNESIUM,PLASMA | 1.9 | 1.6 - 2.6 mg/dL | + +-------+ + + + + | Specimen | Performing Laboratory | + + + | Blood | [facility], CORE [address] [facility] [address] | | | [place] [address] | + + + + + | [...] | >60 | >60 mL/min | | SURINAMESE | | | + + + + | EGFR NON | >60 | >60 mL/min | | -SURINAMESE | | | + + + + [...] | + + + | Blood | [facility], CORE [address] [facility] | | | [place] [address] | + + + + + | [...] + + + | | [facility], POINT OF CARE TESTS [address] | | | [place] [address] | + + + 12 LEAD ECG [...] Laboratory | + + + | | [facility] [address] [place] [address] | | | [place] [address] | + + + CAPILLARY BLOOD GLUCOSE (NO CHG), POC (10/28/2017 12:00 PM) + +---------+ + | Component | Value | Ref Range | + +---------+ + | BLOOD GLUCOSE, POC | 141 (H) | 70 - 99 mg/dL | + +---------+ + + + + | Specimen | Performing Laboratory | + + + | | [facility] [place], POINT OF CARE TESTS [address] | | | [place] [address] | + + + CAPILLARY BLOOD GLUCOSE (NO CHG), POC (10/28/2017 6:43 AM) + +---------+ + | Component | Value | Ref Range | + +---------+ + | BLOOD GLUCOSE, POC | 127 (H) | 70 - 99 mg/dL | + +---------+ + + + + | Specimen | Performing Laboratory | + + + | | [facility] [place], POINT OF CARE TESTS [address] | | | [place] [address] | + + + C-REACTIVE PROTEIN (10/28/2017 5:29 AM) + + + + | Component | Value | Ref Range | + + + + | C-REACTIVE PROTEIN | 17.9 (H) | <10.0 mg/L | + + + + + + + | Specimen | Performing Laboratory | + + + | Blood | [facility], CORE [address] [facility] | | | [place] [address] | + + + + + | [...] + + + | Blood | [facility] [address] [place], [place] | | | [address] | + + + TRIGLYCERIDES, PLASMA (10/28/2017 5:29 AM) + +-------+ + | Component | Value | Ref Range | + +-------+ + | TRIGLYCERIDES | 117 | <150 mg/dL | + +-------+ + + + + | Specimen | Performing Laboratory | + + + | Blood | [facility], CORE [address] | | | [place] [address] | + + + + + | [...] | + + + | Blood | [facility], CORE [address] [place] [address] | | | [place] [address] | + + + LIVER SET (AST,ALT,BILI [...] | + + + | Blood | [facility], CORE [address] [place] [address] | | | [place] [address] | + + + RENAL FUNCTION SET [...] | >60 | >60 mL/min | | SURINAMESE | | | + + + + | EGFR NON | >60 | >60 mL/min | | -SURINAMESE | | | + + + + [...] | + + + | Blood | [facility], CORE [address] [facility] | | | [place] [address] | + + + + + | [...] | + + + | Blood | [facility], CORE [address] [facility] | | | [place] [address] | + + + + + | [...] [address] | | | [place] [address] | + + + CAPILLARY BLOOD GLUCOSE (NO CHG), POC (10/27/2017 6:48 PM) + +---------+ + | Component | Value | Ref Range | + +---------+ + | BLOOD GLUCOSE, POC | 128 (H) | 70 - 99 mg/dL | + +---------+ + + + + | Specimen | Performing Laboratory | + + + | | [facility], POINT OF CARE TESTS [address] | | | [place] [address] | + + + CT ABDOMEN AND PELVIS WO IV CONTRAST (10/27/2017 5:38 PM) + + + | Specimen | Performing Laboratory | + + + | | [facility] RADI[facility]Y VOICE RECOGNITION 2 | [...] as now presented. | | Final signature: hPam Webb MD 10/28/2017 9:20 AM Preliminary: Pham [...] Laboratory | + + + | | [facility] RAD[facility] VOICE RECOGNITION 2 | + + + + + | Narrative | + + | EXAM: LA CHEST PICC LINE CHECK HISTORY: picc done [...] Interface - 10/27/2017 6:29 PM PDT EXAM: LA CHEST | | PICC LINE CHECK HISTORY: [...] | | verifies correct patient, procedure, equipment, information support project manager and site/side marked as | | [...] Brachial | | vein. Catheter lot number: [id number] with a length of 55 cm was [...] + + + | | [facility] [place], POINT OF CARE TESTS [address] | | | [place] [address] | + + + 12 LEAD ECG [...] + | | [facility] [address] [place] [address] | | | [place] [address] | + + + CAPILLARY BLOOD GLUCOSE [...] [address] | | | [place] [address] | + + + MAGNESIUM, PLASMA (10/27/2017 4:30 AM) + +-------+ + | Component | Value | Ref Range | + +-------+ + | MAGNESIUM,PLASMA | 1.9 | 1.6 - 2.6 mg/dL | + +-------+ + + + + | Specimen | Performing Laboratory | + + + | Blood | [facility], CORE [address] | | | [place] [address] | + + + + + | [...] | >60 | >60 mL/min | | SURINAMESE | | | + + + + | EGFR NON | >60 | >60 mL/min | | -SURINAMESE | | | + + + + [...] | + + + | Blood | [facility] LABORATORY [facility], CORE [address] [place] | | | [place] [address] | + + + + + | [...] Laboratory | + + + | | [facility], POINT OF CARE TESTS [address] | | | [place] [address] | + + + CAPILLARY BLOOD GLUCOSE (NO CHG), POC (10/26/2017 11:58 AM) + +---------+ + | Component | Value | Ref Range | + +---------+ + | BLOOD GLUCOSE, POC | 110 (H) | 70 - 99 mg/dL | + +---------+ + + + + | Specimen | Performing Laboratory | + + + | | [facility] [place], POINT OF CARE TESTS [address] | | | [place] [address] | + + + CAPILLARY BLOOD GLUCOSE (NO CHG), POC (10/26/2017 5:57 AM) + +---------+ + | Component | Value | Ref Range | + +---------+ + | BLOOD GLUCOSE, POC | 102 (H) | 70 - 99 mg/dL | + +---------+ + + + + | Specimen | Performing Laboratory | + + + | | [facility], POINT OF CARE TESTS [address] | | | [place] [address] | + + + MAGNESIUM, PLASMA (10/26/2017 5:13 AM) + +-------+ + | Component | Value | Ref Range | + +-------+ + | MAGNESIUM,PLASMA | 1.6 | 1.6 - 2.6 mg/dL | + +-------+ + + + + | Specimen | Performing Laboratory | + + + | Blood | [facility] LABORATORY [facility], CORE [address] [facility] | | | [place] [address] | + + + + + | [...] | >60 | >60 mL/min | | SURINAMESE | | | + + + + | EGFR NON | >60 | >60 mL/min | | -SURINAMESE | | | + + + + [...] | + + + | Blood | [facility] LABORATORY [facility], [facility] [address] | | | [place] [address] | + + + + + | [...] + + + | | [facility], POINT OF CARE TESTS [address] | | | [place] [address] | + + + BASIC METABOLIC SET [...] | >60 | >60 mL/min | | SURINAMESE | | | + + + + | EGFR NON | >60 | >60 mL/min | | -SURINAMESE | | | + + + + [...] | + + + | Blood | [facility] SERVICES, CORE [address] [place] [address] | | | [place] [address] | + + + + + | [...] [address] | | | [place] [address] | + + + 12 LEAD ECG [...] | + + + | | [facility] [address] [place] [address] | | | [place] [address] | + + + CAPILLARY BLOOD GLUCOSE [...] [address] | | | [place] [address] | + + + 12 LEAD ECG [...] Laboratory | + + + | | [facility] [address] [facility] | | | [place] [address] | + + + CALCIUM, IONIZED, WHOLE [...] | + + + | Blood | [facility], CORE [address] [facility] | | | [place] [address] | + + + PREALBUMIN (10/24/2017 4:50 PM) + + + + | Component | Value | Ref Range | + + + + | PREALBUMIN | 14.7 (L) | 17.0 - 42.0 mg/dL | + + + + + + + | Specimen | Performing Laboratory | + + + | Blood | [facility] [place] [address] [place], [place] | | | [address] | + + + C-REACTIVE PROTEIN (10/24/2017 4:45 PM) + + + + | Component | Value | Ref Range | + + + + | C-REACTIVE PROTEIN | 16.0 (H) | <10.0 mg/L | + + + + + + + | Specimen | Performing Laboratory | + + + | Blood | [facility], CORE [address] [facility] | | | [place] [address] | + + + + + | [...] | + + + | Blood | [facility], CORE [address] [facility] | | | [place] [address] | + + + TRIGLYCERIDES, PLASMA (10/24/2017 4:45 PM) + +-------+ + | Component | Value | Ref Range | + +-------+ + | TRIGLYCERIDES | 93 | <150 mg/dL | + +-------+ + + + + | Specimen | Performing Laboratory | + + + | Blood | [facility], CORE [address] [facility] | | | [place] [address] | + + + + + | [...] | + + + | Blood | [facility], CORE [address] [facility] | | | [place] [address] | + + + ALKALINE PHOSPHATASE, PLASMA (10/24/2017 4:45 PM) + +---------+ + | Component | Value | Ref Range | + +---------+ + | ALK PHOS | 200 (H) | 56 - 119 U/L | + +---------+ + + + + | Specimen | Performing Laboratory | + + + | Blood | [facility], CORE [address] [facility] | | | [place] [address] | + + + BILIRUBIN DIRECT (10/24/2017 [...] | + + + | Blood | [facility], CORE [address] [facility] | | | [place] [address] | + + + BILIRUBIN TOTAL (10/24/2017 4:45 PM) + +---------+ + | Component | Value | Ref Range | + +---------+ + | BILIRUBIN TOTAL | 0.3 | 0.3 - 1.2 mg/dL | + +---------+ + | BRET SHIPLEY | No Hemo | | + +---------+ + + + + | Specimen | Performing Laboratory | + + + | Blood | [facility], CORE [address] [place] [address] | | | [place] [address] | + + + PHOSPHORUS, PLASMA (10/24/2017 4:45 PM) + +-------+ + | Component | Value | Ref Range | + +-------+ + | PHOSPHORUS, PLASMA | 3.2 | 2.4 - 4.7 mg/dL | | (LAB) | | | + +-------+ + + + + | Specimen | Performing Laboratory | + + + | Blood | [facility], CORE [address] [place] [address] | | | [place] [address] | + + + ALBUMIN, PLASMA (10/24/2017 4:45 PM) + +---------+ + | Component | Value | Ref Range | + +---------+ + | ALBUMIN, PLASMA | 2.6 (L) | 3.5 - 4.7 g/dL | | (LAB) | | | + +---------+ + + + + | Specimen | Performing Laboratory | + + + | Blood | [facility], CORE [address] [facility] | | | [place], [place] [address] | + + + MAGNESIUM, PLASMA (10/24/2017 4:45 PM) + +-------+ + | Component | Value | Ref Range | + +-------+ + | MAGNESIUM,PLASMA | 1.7 | 1.6 - 2.6 mg/dL | + +-------+ + + + + | Specimen | Performing Laboratory | + + + | Blood | [facility], CORE [address] [facility] | | | [place] [address] | + + + + + | [...] | >60 | >60 mL/min | | SURINAMESE | | | + + + + | EGFR NON | >60 | >60 mL/min | | -SURINAMESE | | | + + + + [...] | + + + | Blood | [facility], CORE [address] [facility] | | | [place] [address] | + + + + + | [...] Procedure Note | | Indications:TPN Procedure location: Unit:[facility] Room: 4 Providers: Attending name: | | Attending physically present: No PICC Nurse name: Nery Sosa Pre-Procedure Consent: | | written consent obtained Consent given by: Next of kin Patient identity confirmed | | per protocol: Yes Team Pause: Immediatly prior to the procedure a pause per protocol | | was called. A pause verifies correct patient, procedure, equipment, information support project manager | | and site/side marked as [...] Arm area Basilic vein. Catheter lot number: [id number] with a length of 55 cm | [...] Laboratory | + + + | | [facility] RAD[facility] VOICE RECOGNITION 2 | + + + + + | Narrative | + + | EXAM: LA CHEST 1 VIEW HISTORY: PICC placed-pt ready. [...] Interface - 10/24/2017 3:43 PM PDT EXAM: LA CHEST 1 | | VIEW HISTORY: PICC [...] [address] | | | [place] [address] | + + + PROCEDURE DESTINY (10/24/2017 [...] Surgical Critical Care, PGY7 | | Pager: [phone] | + + CAPILLARY BLOOD GLUCOSE (NO CHG), POC (10/24/2017 10:31 AM) + +-------+ + | Component | Value | Ref Range | + +-------+ + | BLOOD GLUCOSE, POC | 85 | 70 - 99 mg/dL | + +-------+ + + + + | Specimen | Performing Laboratory | + + + | | [facility] [place], POINT OF CARE TESTS [address] | | | [place] [address] | + + + CAPILLARY BLOOD GLUCOSE (NO CHG), POC (10/24/2017 8:50 AM) + +-------+ + | Component | Value | Ref Range | + +-------+ + | BLOOD GLUCOSE, POC | 98 | 70 - 99 mg/dL | + +-------+ + + + + | Specimen | Performing Laboratory | + + + | | [facility], POINT OF CARE TESTS [address] | | | [place] [address] | + + + RENAL FUNCTION SET [...] | >60 | >60 mL/min | | SURINAMESE | | | + + + + | EGFR NON | >60 | >60 mL/min | | -SURINAMESE | | | + + + + [...] | + + + | Blood | [facility] LABORATORY [facility], CORE [address] [facility] [address] | | | [place] [address] | + + + + + | [...] | + + + | Blood | [facility] SERVICES, CORE [address] [facility] | | | [place] [address] | + + + + + | [...] [address] | | | [place] [address] | + + + CBC AND AUTO [...] | + + + | Blood | [facility] LABORATORY [facility], CORE [address] [facility] | | | [place] [address] | + + + + + | [...] | >60 | >60 mL/min | | SURINAMESE | | | + + + + | EGFR NON | >60 | >60 mL/min | | -SURINAMESE | | | + + + + [...] | + + + | Blood | [facility]ATORY [facility], [facility] [address] [facility] [address] | | | [place] [address] | + + + + + | [...] | ------ CBC AND AUTO | | DIFF[[id number]] Abnormal Final | | result Please view [...] + | | [facility] [address] [place] [address] | | | [facility] [address] | + + + IR GASTROSTOMY TUBE EXCHANGE (10/22/2017 2:42 PM) + + + | Specimen | Performing Laboratory | + + + | | [facility] VOICE RECOGNITION | + + + + + | Narrative | + + | Procedure: Gastrostomy tube exchange Primary attending cylinder valve repairer: Shade | | Bryn Goodwin Preoperative diagnosis: Malfunctioning Gastrostomy tube | | Postoperative diagnosis: Same Operations: Operation 1. Removal of existing | | Gastrostomy tube over a guide wire Operation 2. Placement of 24 Prydeinig GABRIEL | | gastrostomy over guide wire [...] | | glide wire the new 24 Prydeinig gastrostomy tube was inserted. The position of [...] Procedure: | | Gastrostomy tube exchangePrimary attending cylinder valve repairer: Shade Goodwin | | BrynPreoperative diagnosis: Malfunctioning Gastrostomy tubePostoperative diagnosis: | | SameOperations:Operation 1. Removal of existing Gastrostomy tube over a guide | | wireOperation 2. Placement of 24 Prydeinig GABRIEL gastrostomy over guide wireNo sedation was [...] glide wire the | | new 24 Prydeinig gastrostomy tube was inserted. The position of [...] stiff g lide wire the new 24 Prydeinig | |gastrostomy tube was inserted. The position [...] Note | + + | Service Account, [employer] In Interface - 10/22/2017 10:34 AM PDT [...] Laboratory | + + + | | [facility] [address] [place] [address] | | | [place] [address] | + + + CT ABDOMEN AND PELVIS W IV CONTRAST (10/22/2017 3:56 AM) + + + | Specimen | Performing Laboratory | + + + | | [facility] VOICE RECOGNITION 2 | [...] Note | + + | Service Account, [employer] In Interface - 10/22/2017 8:06 AM [...] | + + + | Blood | [facility], [facility] [address] [facility] | | | [place] [address] | + + + + + | [...] | >60 | >60 mL/min | | SURINAMESE | | | + + + + | EGFR NON | >60 | >60 mL/min | | -SURINAMESE | | | + + + + [...] | + + + | Blood | [facility], C[facility] [address] [place] [address] | | | [place] [address] | + + + + + | [...] | | ------ CBC (HEMOGRAM) | | ONLY[[id number]] Abnormal Final | | result Please view [...] Laboratory | + + + | | [facility] [address] [place] [address] | | | [place] [address] | + + + RENAL FUNCTION SET [...] | >60 | >60 mL/min | | SURINAMESE | | | + + + + | EGFR NON | >60 | >60 mL/min | | -SURINAMESE | | | + + + + [...] | + + + | Blood | [facility], [facility] [address] [facility] | | | [place] [place] [address] | + + + + + | [...] | + + + | Blood | [facility], CORE [address] | | | [place] [address] | + + + + + | [...] Laboratory | + + + | | [facility] [address] [place] [address] | | | [place] [address] | + + + MAGNESIUM, PLASMA (10/18/2017 9:01 AM) + +-------+ + | Component | Value | Ref Range | + +-------+ + | MAGNESIUM,PLASMA | 1.9 | 1.6 - 2.6 mg/dL | + +-------+ + + + + | Specimen | Performing Laboratory | + + + | Blood | [facility], CORE [address] [place] [address] | | | [place], [place] [address] | + + + + + | [...] | >60 | >60 mL/min | | SURINAMESE | | | + + + + | EGFR NON | >60 | >60 mL/min | | -SURINAMESE | | | + + + + [...] | + + + | Blood | [facility], CORE [address] [facility] | | | [place] [address] | + + + + + | [...] Laboratory | + + + | | [facility] [address] [place] [address] | | | [place] [address] | + + + RENAL FUNCTION SET [...] | >60 | >60 mL/min | | SURINAMESE | | | + + + + | EGFR NON | >60 | >60 mL/min | | -SURINAMESE | | | + + + + [...] | + + + | Blood | [facility], CORE [address] [place] [address] | | | [place] [address] | + + + + + | [...] | + + + | Blood | [facility], CORE [address] [facility] | | | [place] [address] | + + + + + | [...] Laboratory | + + + | | [address] | | | [place] [address] | + + + BASIC METABOLIC SET [...] | >60 | >60 mL/min | | SURINAMESE | | | + + + + | EGFR NON | >60 | >60 mL/min | | -SURINAMESE | | | + + + + [...] | + + + | Blood | [facility], [facility] [address] | | | [place] [address] | + + + + + | [...] | + + + | Blood | [facility], CORE [address] [facility] | | | [place] [address] | + + + + + | [...] | | ------ CBC (HEMOGRAM) | | ONLY[[id number]] Abnormal Final | | result Please view [...] Note | + + | Service Account, [employer] In Interface - 10/15/2017 3:58 PM PDT [...] + | | [facility] [address] [place] [address] | | | [place] [address] | + + + CAPILLARY BLOOD GLUCOSE (NO CHG), POC (10/15/2017 6:01 AM) + +---------+ + | Component | Value | Ref Range | + +---------+ + | BLOOD GLUCOSE, POC | 134 (H) | 70 - 99 mg/dL | + +---------+ + + + + | Specimen | Performing Laboratory | + + + | | [facility], POINT OF CARE TESTS [address] | | | [place] [address] | + + + CBC (HEMOGRAM) ONLY [...] | + + + | Blood | [facility], CORE [address] [facility] | | | [place] [facility] | + + + + + | [...] | | ------ CBC (HEMOGRAM) | | ONLY[[id number]] Abnormal Final | | result Please view [...] Laboratory | + + + | | [facility] [place], POINT OF [facility] TESTS [address] | | | [place] [address] | + + + 12 LEAD ECG [...] Laboratory | + + + | | [facility] [address] [place] [address] | | | [place] [address] | + + + CBC (HEMOGRAM) ONLY [...] | + + + | Blood | [facility], CORE [address] [facility] | | | [place] [address] | + + + + + | [...] | >60 | >60 mL/min | | SURINAMESE | | | + + + + | EGFR NON | >60 | >60 mL/min | | -SURINAMESE | | | + + + + [...] | + + + | Blood | [facility], CORE [address] [facility] | | | [place] [address] | + + + + + | [...] | + + + | Blood | [facility], CORE [address] [facility] | | | [place] [address] | + + + + + | [...] | | ------ CBC (HEMOGRAM) | | ONLY[[id number]] Abnormal Final | | result Please view [...] + | | [facility] POINT OF [facility] TESTS [address] | | | [place] [address] | + + + CAPILLARY BLOOD GLUCOSE [...] [address] | | | [place] [address] | + + + CBC (HEMOGRAM) ONLY [...] | + + + | Blood | [facility], CORE [address] [facility] | | | [place] [address] | + + + + + | [...] | >60 | >60 mL/min | | SURINAMESE | | | + + + + | EGFR NON | >60 | >60 mL/min | | -SURINAMESE | | | + + + + [...] | + + + | Blood | [facility], CORE [address] [facility] | | | [place] [address] | + + + + + | [...] | | ------ CBC (HEMOGRAM) | | ONLY[[id number]] Abnormal Final | | result Please view results for these tests on the | | individual orders. | + + OPERATION RECORD (10/12/2017 8:50 PM) + + | Procedure Note | + + | Pilar Cotto MD - 10/12/2017 8:50 PM PDT Date of Service: 10/12/2017 | | Attending Surgeon: Chaz Munoz MD Medical Lab Technician(s): Randell Dixon M.D., | | fellow. [...] saline. We then | | placed a 19-Prydeinig drain deep into the abscess cavity, tracking [...] 10/12/2017 19:50:06DT: 10/12/2017 20:50:54Job #: | | [id number] | + + X-RAY PORTABLE CHEST 1 VIEW (10/12/2017 7:50 PM) + + + | Specimen | Performing Laboratory | + + + | | [facility] VOICE RECOGNITION 2 | + + + + + | Narrative | + + | EXAM: LA CHEST 1 VIEW HISTORY: Evaluate endotracheal tube [...] Note | + + | Service Account, [employer] In Interface - 10/13/2017 9:04 AM PDT EXAM: [place] CHEST 1 | | VIEW HISTORY: Evaluate [...] | [facility], POINT OF [facility] TESTS [address] | | | [place] [address] | + + + CT ABDOMEN AND [...] Note | + + | Service Account, [employer] In Interface - 10/12/2017 5:05 PM [...] | + + + | Blood | [facility], CORE [address] | | | [place] [address] | + + + + + | [...] | >60 | >60 mL/min | | SURINAMESE | | | + + + + | EGFR NON | >60 | >60 mL/min | | -SURINAMESE | | | + + + + [...] | + + + | Blood | [facility], CORE [address] [facility] | | | [place] [address] | + + + + + | [...] | | ------ CBC (HEMOGRAM) | | ONLY[[id number]] Abnormal Final | | result Please view [...] | + + + | Blood | [facility] LABORATORY [facility], [facility] [address] [facility] | | | [place] [address] | + + + + + | [...] | + + + | | [facility] [address] [place] [address] | | | [place] [address] | + + + 12 LEAD ECG [...] Laboratory | + + + | | [facility] [address] [place] [address] | | | [place] [address] | + + + CBC (HEMOGRAM) ONLY [...] | + + + | Blood | [facility], [facility] [address] [facility] | | | [place] [address] | + + + + + | [...] | + + + | Blood | [facility], CORE [address] [place] [address] | | | [place] [address] | + + + + + | [...] | >60 | >60 mL/min | | SURINAMESE | | | + + + + | EGFR NON | >60 | >60 mL/min | | -SURINAMESE | | | + + + + [...] | + + + | Blood | [facility], CORE [address] [place] [address] | | | [place] [address] | + + + + + | [...] | | ------ CBC (HEMOGRAM) | | ONLY[[id number]] Abnormal Final | | result Please view results for these tests on the | | individual orders. | + + PROCEDURE NOTE (10/10/2017 10:00 PM) + + | Narrative | + + | Darius Link MD 10/12/2017 11:11 AM OPERATIVE REPORT DATE OF | | OPERATION: 10/10/2017 ATTENDING SURGEON: 1. Dr. Munoz VINYL INSTALLER: 1. 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 | | [place] [address] Chief Resident Neurosurgery | + + CBC [...] | + + + | Blood | [facility], CORE [address] | | | [place] [address] | + + + + + | [...] | | ------ CBC (HEMOGRAM) | | ONLY[[id number]] Abnormal Final | | result Please view [...] | >60 | >60 mL/min | | SURINAMESE | | | + + + + | EGFR NON | >60 | >60 mL/min | | -SURINAMESE | | | + + + + [...] | + + + | Blood | [facility], CORE [address] | | | [place] [address] | + + + + + | [...] | + + + | Blood | [facility], CORE [address] | | | [place] [address] | + + + + + | Narrative | + + | Reference range change effective 12/11/16. | + + OPERATION RECORD (10/10/2017 12:40 PM) + + | Procedure Note | + + | Magdiel Stock MD - 10/10/2017 12:40 PM PDT Date of Service: 10/10/2017 Attending | | Surgeon: Magdiel Stock MD Medical Lab Technician(s): Cecilia Hernandez, | | . Preoperative [...] This is a 67-year-old male. Please see [facility] for full details. He | [...] the note for this encounter.Sonal Nunez MDOHSU [id number] | | [place] [phone] Orina, MDFAH/MODLDD: | | 10/10/2017 11:52:15DT: 10/10/2017 12:40:41Job #: [id number] | | | | | |I was present for the critical portions of the procedure as described in the note for this encounter. | | | |Magdiel Stock MD | | | |Magdiel Stock MD | |[address] | |[address] [facility] | |[facility] | |[place] [address] | |[phone] | | | | | |Magdiel Stock MD | |FAH/MODL | | | | | | /[id number] | + + X-RAY ABDOMEN 1 VIEW [...] + + | Tissue - Head | [facility] [address] [place], [place] | | | [address] | + + + + + | [...] + + | Swab - Head | [facility] [place] [address] [place], [place] | | | [address] | + + + + + | [...] + + | Swab - Head | [facility] [address] [place], [place] | | | [address] | + + + + + | [...] + + | Swab - Head | [facility] [address] [place], [place] | | | [address] | + + + + + | Narrative | + + | Culture Report: No acid fast bacteria isolated at 6 weeks. AFB Smear: AFB not | | detected | + + CULTURE, FUNGAL EXCEPT BLOOD, SKIN, HAIR, NAIL (10/10/2017 9:00 AM) + + + | Specimen | Performing Laboratory | + + + | Swab - Head | [facility] [address] [place], [place] | | | [address] | + + + + + | [...] + + | Swab - Head | [facility] [address] [place], [place] | | | [address] | + + + + + | [...] + + | Swab - Head | [facility] [place] [address] [address] [place], [place] | | | [address] | + + + + + | [...] + + | Tissue - Head | [facility] [place] [address] [place], [place] | | | [address] | + + + + + | [...] + + | Tissue - Head | [facility] [place] [address] [place], [place] | | | [address] | + + + + + | [...] + + | Swab - Head | [facility] [place] [address] [place], [place] | | | [address] | + + + + + | [...] + + | Swab - Head | [facility] [address] [place], [place] | | | [address] | + + + + + | [...] + + | Swab - Head | [facility] [address] [place], [place] | | | [address] | + + + + + | Narrative | + + | Culture Report: No acid fast bacteria isolated at 6 weeks. AFB Smear: AFB not | | detected | + + CULTURE, FUNGAL EXCEPT BLOOD, SKIN, HAIR, NAIL (10/10/2017 8:38 AM) + + + | Specimen | Performing Laboratory | + + + | Swab - Head | [facility] [address] [address] [place], [place] | | | [address] | + + + + + | [...] + + | Swab - Head | [facility] [place] [address] [place], [place] | | | [address] | + + + + + | [...] + + | Swab - Head | [facility] [place] [address] [place] [address] | | | [address] | + + + + + | Narrative | + + | Culture Report: No acid fast bacteria isolated at 6 weeks. AFB Smear: AFB not | | detected | + + CULTURE, FUNGAL EXCEPT BLOOD, SKIN, HAIR, NAIL (10/10/2017 8:31 AM) + + + | Specimen | Performing Laboratory | + + + | Swab - Head | [facility] [place] [address] [address] [place], [place] | | | [address] | + + + + + | [...] + + | Swab - Head | [facility] [address] [place], [place] | | | [address] | + + + + + | [...] + + | Swab - Head | [facility] [address] [place], [place] | | | [address] | + + + + + | Narrative | + + | Culture Report: No acid fast bacteria isolated at 6 weeks. AFB Smear: AFB not | | detected | + + CT HEAD WO CONTRAST (10/10/2017 3:01 AM) + + + | Specimen | Performing Laboratory | + + + | | [facility] VOICE RECOGNITION 2 | [...] [facility], CORE [address] [facility] | | | [place] [address] | + + + CBC (HEMOGRAM) ONLY [...] | + + + | Blood | [facility], CORE [address] [facility] | | | [place] [address] | + + + + + | [...] | | ------ CBC (HEMOGRAM) | | ONLY[[id number]] Abnormal Final | | result Please view [...] | + + + | Blood | [facility] SERVICES, [facility] [address] [facility] | | | [place] [address] | + + + + + | [...] | >60 | >60 mL/min | | SURINAMESE | | | + + + + | EGFR NON | >60 | >60 mL/min | | -SURINAMESE | | | + + + + [...] | + + + | Blood | [facility] SERVICES, CORE [address] [facility] | | | [place] [address] | + + + + + | [...] + | | [facility] [address] [place] [address] | | | [place] [address] | + + + PRODUCT - RED CELLS LEUKOREDUCED (10/09/2017 5:12 PM) + + + + | Component | Value | Ref Range | + + + + | PRODUCT DESCRIPTION | -1 RED BLOOD CELL ADENINE-SALINE ADDED | | | | LEUKOCYTE | | + + + + | PRODUCT UNIT # | [id number] | | + + + + | UNIT ABO | O | | + + + + | UNIT RH | POS | | + + + + | STATUS OF UNIT | Returned to Blood Bank | | + + + + | EXPIRATION DATE | [id number] | | + + + + | BLOOD TYPE BARCODE | 5100 | | + + + + | BLOOD PRODUCT CODE | [id number] | | + + + + + + + | Specimen | Performing Laboratory | + + + | | [facility] SERVICES, TRANSFUSION MEDICINE [address] [facility] | | | [place] [address] | + + + PRODUCT - RED CELLS LEUKOREDUCED (10/09/2017 5:12 PM) + + + + | Component | Value | Ref Range | + + + + | PRODUCT DESCRIPTION | -1 RED BLOOD CELL ADENINE-SALINE ADDED | | | | LEUKOCYTE | | + + + + | PRODUCT UNIT # | [id number] | | + + + + | UNIT ABO | O | | + + + + | UNIT RH | POS | | + + + + | STATUS OF UNIT | Returned to Blood Bank | | + + + + | EXPIRATION DATE | [id number] | | + + + + | BLOOD TYPE BARCODE | 5100 | | + + + + | BLOOD PRODUCT CODE | [id number] | | + + + + + + + | Specimen | Performing Laboratory | + + + | | [facility], TRANSFUSION MEDICINE [address] [facility] | | | [place] [address] | + + + ANTIBODY IDENTIFICATION (10/09/2017 5:01 PM) + + + + | Component | Value | Ref Range | + + + + | ANTIBODY 1 | Antibody present, unable to identify | | + + + + + + + | Specimen | Performing Laboratory | + + + | Blood | [facility] SERVICES, TRANSFUSION MEDICINE [address] [facility] | | | [place] [address] | + + + ANTIBODY SCREEN (10/09/2017 5:01 PM) + + + + | Component | Value | Ref Range | + + + + | Antibody Screen | Positive | | + + + + + + + | Specimen | Performing Laboratory | + + + | Blood | [facility] SERVICES, TRANSFUSION MEDICINE [address] [facility] | | | [place] [address] | + + + ABO & RH [...] | + + + | Blood | [facility] SERVICES, TRANSFUSION MEDICINE [address] | | | [place] [address] | + + + TYPE AND SCREEN [...] | ------ ABO & RH | | TYPE[[id number]] F | | inal result ANTIBODY | | SCREEN[[id number]] Fin | | al result Please view [...] | + + + | Blood | [facility], CORE [address] [facility] | | | [place] [address] | + + + + + | [...] + | | [facility] [address] [place] [address] | | | [place] [address] | + + + VASC LAB VENOUS DUPLEX LOWER EXTREMITY BILAT COMP (10/08/2017 10:05 AM) + + + | Specimen | Performing Laboratory | + + + | | [facility] RAD[facility] VASC US | + + + [...] [address] | | | [place] [address] | + + + CBC (HEMOGRAM) ONLY [...] | + + + | Blood | [facility] SERVICES, CORE [address] [facility] | | | [place] [address] | + + + + + | [...] | + + + | Blood | [facility] SERVICES, CORE [address] [place] [address] | | | [place] [address] | + + + + + | [...] | | ------ CBC (HEMOGRAM) | | ONLY[[id number]] Abnormal Final | | result Please view [...] | >60 | >60 mL/min | | SURINAMESE | | | + + + + | EGFR NON | >60 | >60 mL/min | | -SURINAMESE | | | + + + + [...] | + + + | Blood | [facility] LABORATORY [facility], CORE [address] [facility] | | | [place] [address] | + + + + + | [...] [address] | | | [place] [address] | + + + CAPILLARY BLOOD GLUCOSE (NO CHG), POC (10/07/2017 10:30 PM) + +---------+ + | Component | Value | Ref Range | + +---------+ + | BLOOD GLUCOSE, POC | 173 (H) | 70 - 99 mg/dL | + +---------+ + + + + | Specimen | Performing Laboratory | + + + | | [facility], POINT OF CARE TESTS [address] | | | [place] [address] | + + + CAPILLARY BLOOD GLUCOSE [...] [address] | | | [place] [address] | + + + CAPILLARY BLOOD GLUCOSE (NO CHG), POC (10/07/2017 11:43 AM) + +---------+ + | Component | Value | Ref Range | + +---------+ + | BLOOD GLUCOSE, POC | 142 (H) | 70 - 99 mg/dL | + +---------+ + + + + | Specimen | Performing Laboratory | + + + | | [facility], POINT OF CARE TESTS [address] | | | [place] [address] | + + + CAPILLARY BLOOD GLUCOSE [...] TESTS [address] | | | [place] [address] | + + + CBC (HEMOGRAM) ONLY [...] | + + + | Blood | [facility] SERVICES, CORE [address] [facility] | | | [place] [address] | + + + + + | [...] | + + + | Blood | [facility] SERVICES, CORE [address] [facility] | | | [place] [address] | + + + + + | [...] | | ------ CBC (HEMOGRAM) | | ONLY[[id number]] Abnormal Final | | result Please view [...] | >60 | >60 mL/min | | SURINAMESE | | | + + + + | EGFR NON | >60 | >60 mL/min | | -SURINAMESE | | | + + + + [...] | + + + | Blood | [facility] SERVICES, CORE [address] [facility] | | | [place] [address] | [...] [address] | | | [place] [address] | + + + CAPILLARY BLOOD GLUCOSE (NO CHG), POC (10/06/2017 6:03 PM) + +---------+ + | Component | Value | Ref Range | + +---------+ + | BLOOD GLUCOSE, POC | 107 (H) | 70 - 99 mg/dL | + +---------+ + + + + | Specimen | Performing Laboratory | + + + | | [facility] [place], POINT OF CARE TESTS [address] | | | [place] [address] | + + + 12 LEAD ECG [...] Laboratory | + + + | | [facility] [address] [place] [address] | | | [place] [address] | + + + CAPILLARY BLOOD GLUCOSE [...] [address] | | | [place] [address] | + + + CBC (HEMOGRAM) ONLY [...] | + + + | Blood | [facility] LABORATORY [facility], [facility] [address] [facility] | | | [place] [address] | + + + + + | [...] | + + + | Blood | [facility] SERVICES, CORE [address] | | | [place] [address] | + + + + + | [...] | | ------ CBC (HEMOGRAM) | | ONLY[[id number]] Abnormal Final | | result Please view [...] | >60 | >60 mL/min | | SURINAMESE | | | + + + + | EGFR NON | >60 | >60 mL/min | | -SURINAMESE | | | + + + + [...] | + + + | Blood | [facility] SERVICES, CORE [address] [facility] | | | [place] [address] | + + + + + | [...] [address] | | | [place] [address] | + + + CAPILLARY BLOOD GLUCOSE (NO CHG), POC (10/06/2017 1:04 AM) + +-------+ + | Component | Value | Ref Range | + +-------+ + | BLOOD GLUCOSE, POC | 91 | 70 - 99 mg/dL | + +-------+ + + + + | Specimen | Performing Laboratory | + + + | | [facility], POINT OF CARE TESTS [address] | | | [place] [address] | + + + CAPILLARY BLOOD GLUCOSE (NO CHG), POC (10/05/2017 6:43 PM) + +---------+ + | Component | Value | Ref Range | + +---------+ + | BLOOD GLUCOSE, POC | 118 (H) | 70 - 99 mg/dL | + +---------+ + + + + | Specimen | Performing Laboratory | + + + | | [facility] [place], POINT OF CARE TESTS [address] | | | [place] [address] | + + + CAPILLARY BLOOD GLUCOSE [...] TESTS [address] | | | [place] [address] | + + + 12 LEAD ECG [...] | + + + | | [facility] [address] [place] [address] | | | [place] [address] | + + + CBC (HEMOGRAM) ONLY [...] | + + + | Blood | [facility], CORE [address] [facility] | | | [place] [address] | + + + + + | [...] | + + + | Blood | [facility], CORE [address] [facility] | | | [place] [address] | + + + + + | [...] | | ------ CBC (HEMOGRAM) | | ONLY[[id number]] Abnormal Final | | result Please view [...] | >60 | >60 mL/min | | SURINAMESE | | | + + + + | EGFR NON | >60 | >60 mL/min | | -SURINAMESE | | | + + + + [...] | + + + | Blood | [facility], CORE [address] | | | [place] [address] | + + + + + | [...] Laboratory | + + + | | NCDANIELLE [facility] [place], POINT OF CARE TESTS [address] | | | [place] [address] | + + + CAPILLARY BLOOD GLUCOSE (NO CHG), POC (10/04/2017 11:48 PM) + +---------+ + | Component | Value | Ref Range | + +---------+ + | BLOOD GLUCOSE, POC | 131 (H) | 70 - 99 mg/dL | + +---------+ + + + + | Specimen | Performing Laboratory | + + + | | [facility] POINT [facility] CARE [facility] [address] | | | [place] [address] | + + + CAPILLARY BLOOD GLUCOSE (NO CHG), POC (10/04/2017 5:47 PM) + +---------+ + | Component | Value | Ref Range | + +---------+ + | BLOOD GLUCOSE, POC | 123 (H) | 70 - 99 mg/dL | + +---------+ + + + + | Specimen | Performing Laboratory | + + + | | [facility], POINT OF CARE TESTS [address] | | | [place] [address] | + + + CAPILLARY BLOOD GLUCOSE [...] [address] | | | [place] [address] | + + + CAPILLARY BLOOD GLUCOSE (NO CHG), POC (10/04/2017 5:55 AM) + +---------+ + | Component | Value | Ref Range | + +---------+ + | BLOOD GLUCOSE, POC | 128 (H) | 70 - 99 mg/dL | + +---------+ + + + + | Specimen | Performing Laboratory | + + + | | NCDANIELLE GENA[facility], POINT OF CARE TESTS [address] | | | [place] [address] | + + + CBC (HEMOGRAM) ONLY [...] | + + + | Blood | [facility], [facility] [place] [address] | | | [place] [address] | + + + + + | [...] | + + + | Blood | [facility], CORE [address] | | | [place] [address] | + + + + + | [...] | | ------ CBC (HEMOGRAM) | | ONLY[[id number]] Abnormal Final | | result Please view [...] | >60 | >60 mL/min | | SURINAMESE | | | + + + + | EGFR NON | >60 | >60 mL/min | | -SURINAMESE | | | + + + + [...] | + + + | Blood | [facility] SERVICES, CORE [address] | | | [place] [address] | + + + + + | [...] [address] | | | [place] [address] | + + + CAPILLARY BLOOD GLUCOSE [...] [address] | | | [place] [address] | + + + URINE, MICROSCOPIC EXAM [...] + | Urine - Clean catch | [facility], CORE [address] | | | [place] [address] | + + + RPR SERUM (10/03/2017 3:36 PM) + + + + | Component | Value | Ref Range | + + + + | RPR SRM QUAL | Non ReactiveComment: Rapid Plasma Reagin | Non Reactive | | | screening test is Non-Reactive. No further | | | | reflex testing is required.Performed by | | | | [place],[address] [facility], [facility],[place] | | | | [phone] qox.How do you roll?, Gui | | | | MD Arcadio, Lab. Director | | | |www.How do you roll?, Gui Ervin MD, Lab. Director | | + + + + + + + | Specimen | Performing Laboratory | + + + | Blood | [facility] [address] [facility] | | | [place] [address] | + + + VITAMIN B-12 (10/03/2017 [...] | + + + | Blood | [facility], CORE [address] | | | [place] [address] | + + + TSH (10/03/2017 3:36 PM) + + + + | Component | Value | Ref Range | + + + + | TSH | 0.33 (L) | 0.46 - 5.56 mIU/L | + + + + + + + | Specimen | Performing Laboratory | + + + | Blood | [facility], CORE [address] [facility] | | | [place] [address] | + + + + + | [...] | + + + | Blood | [facility], SPECIAL [facility] [address] [facility] | | | [place] [address] | + + + + + | Narrative | + + | HIV-1 p24 Ag and HIV-1,2 Ab not detected. Test modified from original | | supervisor fiber locking's approved specifications. The performance of the EPIC AMBULATORY ANALYST HIV Combo | | test, with or [...] Laboratory | + + + | | [facility] [place], POINT OF CARE TESTS [address] | | | [place] [address] | + + + CAPILLARY BLOOD GLUCOSE [...] [address] | | | [place] [address] | + + + CBC (HEMOGRAM) ONLY [...] | + + + | Blood | [facility], CORE [address] [facility] | | | [place] [address] | + + + + + | [...] | + + + | Blood | [facility] SERVICES, CORE [address] [place] [address] | | | [place] [address] | + + + + + | [...] | | ------ CBC (HEMOGRAM) | | ONLY[[id number]] Abnormal Final | | result Please view [...] | >60 | >60 mL/min | | SURINAMESE | | | + + + + | EGFR NON | >60 | >60 mL/min | | -SURINAMESE | | | + + + + [...] | + + + | Blood | [facility] SERVICES, CORE [address] [place] [address] | | | [place] [address] | + + + + + | [...] [address] | | | [place] [address] | + + + X-RAY SPINE CERVICAL 2 VIEWS (10/02/2017 10:32 PM) + + + | Specimen | Performing Laboratory | + + + | | [facility] RAD[facility] VOICE RECOGNITION 2 | [...] [address] | | | [place] [address] | + + + 12 LEAD ECG [...] Laboratory | + + + | | [facility] [address] [facility] | | | [place] [address] | + + + PROCEDURE NOTE (10/02/2017 [...] Laboratory | + + + | | [facility] VOICE RECOGNITION 2 | + + + + + | Narrative | + + | EXAM: LA CHEST 1 VIEW HISTORY: Evaluate PICC placement [...] Interface - 10/02/2017 2:07 PM PDT EXAM: LA CHEST 1 | | VIEW HISTORY: Evaluate [...] Laboratory | + + + | | [facility] [place], POINT OF CARE TESTS [address] | | | [place] [address] | + + + X-RAY PORTABLE CHEST 1 VIEW (10/02/2017 8:56 AM) + + + | Specimen | Performing Laboratory | + + + | | [facility] RAD[facility] VOICE RECOGNITION 2 | + + + + + | Narrative | + + | EXAM: LA CHEST 1 VIEW HISTORY: new leukocytosis, eval [...] Interface - 10/02/2017 10:27 AM PDT EXAM: LA CHEST 1 | | VIEW HISTORY: new [...] [address] | | | [place] [address] | + + + CBC (HEMOGRAM) ONLY [...] | + + + | Blood | [facility]AT[facility] SERVICES, [facility] [place] [address] [facility] | | | [place] [address] | + + + + + | [...] | + + + | Blood | [facility]ORATORY [facility], CORE [address] [facility] | | | [place] [address] | + + + + + | [...] | | ------ CBC (HEMOGRAM) | | ONLY[[id number]] Abnormal Final | | result Please view [...] | >60 | >60 mL/min | | SURINAMESE | | | + + + + | EGFR NON | >60 | >60 mL/min | | -SURINAMESE | | | + + + + [...] | + + + | Blood | [facility], CORE [address] [facility] | | | [place] [address] | + + + + + | [...] [address] | | | [place] [address] | + + + CAPILLARY BLOOD GLUCOSE [...] [address] | | | [place] [address] | + + + X-RAY ABD LTD FEEDING TUBE EVAL (10/01/2017 1:23 PM) + + + | Specimen | Performing Laboratory | + + + | | [facility] RAD[facility] VOICE RECOGNITION 2 | [...] [address] | | | [place] [address] | + + + VASC LAB VENOUS DUPLEX LOWER EXTREMITY BILAT COMP (10/01/2017 11:14 AM) + + + | Specimen | Performing Laboratory | + + + | | [facility] RADIOLOGY VASC US | + + + [...] Note | + + | Service Account, [employer] In Interface - 10/01/2017 11:34 AM PDT [...] [address] | | | [place] [address] | + + + CBC (HEMOGRAM) ONLY [...] | + + + | Blood | [facility], CORE [address] [place] [address] | | | [place] [address] | + + + + + | [...] | + + + | Blood | [facility]ORATORY [facility], CORE [address] | | | [place] [address] | + + + + + | [...] | | ------ CBC (HEMOGRAM) | | ONLY[[id number]] Abnormal Final | | result Please view [...] | >60 | >60 mL/min | | SURINAMESE | | | + + + + | EGFR NON | >60 | >60 mL/min | | -SURINAMESE | | | + + + + [...] | + + + | Blood | [facility], CORE [address] [facility] | | | [place] [address] | + + + + + | [...] + + | | [facility] [place], POINT OF CARE TESTS [address] | | | [place] [address] | + + + CAPILLARY BLOOD GLUCOSE (NO CHG), POC (09/30/2017 6:01 PM) + +---------+ + | Component | Value | Ref Range | + +---------+ + | BLOOD GLUCOSE, POC | 102 (H) | 70 - 99 mg/dL | + +---------+ + + + + | Specimen | Performing Laboratory | + + + | | [facility] [place], POINT OF CARE TESTS [address] | | | [place] [address] | + + + 12 LEAD ECG [...] | | [facility] [address] [facility] | | | [place] [address] | + + + CT HEAD WO [...] Note | + + | Service Account, [employer] In Interface - 09/30/2017 1:28 PM [...] Laboratory | + + + | | [facility] - [place], POINT OF CARE TESTS [address] | | | [place] [address] | + + + CAPILLARY BLOOD GLUCOSE [...] [address] | | | [place] [address] | + + + CBC (HEMOGRAM) ONLY [...] | + + + | Blood | [facility] SERVICES, CORE [address] [place] [address] | | | [place] [address] | + + + + + | [...] | + + + | Blood | [facility], CORE [address] [facility] | | | [place], [place] [address] | + + + + + | [...] | | ------ CBC (HEMOGRAM) | | ONLY[[id number]] Abnormal Final | | result Please view [...] | >60 | >60 mL/min | | SURINAMESE | | | + + + + | EGFR NON | >60 | >60 mL/min | | -SURINAMESE | | | + + + + [...] | + + + | Blood | [facility], CORE [address] [facility] | | | [place] [address] | + + + + + | [...] [address] | | | [place] [address] | + + + CAPILLARY BLOOD GLUCOSE [...] [address] | | | [place] [address] | + + + CAPILLARY BLOOD GLUCOSE (NO CHG), POC (09/29/2017 12:46 PM) + +---------+ + | Component | Value | Ref Range | + +---------+ + | BLOOD GLUCOSE, POC | 117 (H) | 70 - 99 mg/dL | + +---------+ + + + + | Specimen | Performing Laboratory | + + + | | [facility] [place], POINT OF CARE TESTS [address] | | | [place] [address] | + + + 12 LEAD ECG [...] Laboratory | + + + | | [facility] [address] [place] [address] | | | [place] [address] | + + + CAPILLARY BLOOD GLUCOSE [...] [address] | | | [place] [address] | + + + MAGNESIUM, PLASMA (09/29/2017 4:30 AM) + +-------+ + | Component | Value | Ref Range | + +-------+ + | MAGNESIUM,PLASMA | 2.1 | 1.6 - 2.6 mg/dL | + +-------+ + + + + | Specimen | Performing Laboratory | + + + | Blood | [facility], CORE [address] [facility] | | | [place] [address] | + + + + + | [...] | >60 | >60 mL/min | | SURINAMESE | | | + + + + | EGFR NON | >60 | >60 mL/min | | -SURINAMESE | | | + + + + [...] | + + + | Blood | [facility], CORE [address] [place] [address] | | | [place] [address] | + + + + + | [...] | + + + | Blood | [facility], CORE [address] [facility] | | | [place], [place] [address] | + + + + + | [...] | | ------ CBC (HEMOGRAM) | | ONLY[[id number]] Abnormal Final | | result Please view [...] [address] | | | [place] [address] | + + + CAPILLARY BLOOD GLUCOSE [...] [address] | | | [place] [address] | + + + CAPILLARY BLOOD GLUCOSE [...] [address] | | | [place] [address] | + + + 12 LEAD ECG [...] Laboratory | + + + | | [facility] [address] [place] [address] | | | [place] [address] | + + + CAPILLARY BLOOD GLUCOSE [...] [address] | | | [place] [address] | + + + CBC (HEMOGRAM) ONLY [...] | + + + | Blood | [facility], CORE [address] | | | [facility] [address] | + + + + + | [...] | + + + | Blood | [facility], CORE [address] [facility] | | | [place] [address] | + + + + + | [...] | | ------ CBC (HEMOGRAM) | | ONLY[[id number]] Abnormal Final | | result Please view [...] | >60 | >60 mL/min | | SURINAMESE | | | + + + + | EGFR NON | >60 | >60 mL/min | | -SURINAMESE | | | + + + + [...] | + + + | Blood | [facility], CORE [address] [facility] | | | [place], [place] [address] | + + + + + | [...] [address] | | | [place] [address] | + + + CAPILLARY BLOOD GLUCOSE (NO CHG), POC (09/27/2017 6:25 PM) + +---------+ + | Component | Value | Ref Range | + +---------+ + | BLOOD GLUCOSE, POC | 100 (H) | 70 - 99 mg/dL | + +---------+ + + + + | Specimen | Performing Laboratory | + + + | | [facility] [facility], POINT OF CARE TESTS [address] | | | [place] [address] | + + + MODIFIED BARIUM SWALLOWING [...] poorly cleared with dry swallows. Please see [facility] pathology report for [...] TESTS [address] | | | [place] [address] | + + + CAPILLARY BLOOD GLUCOSE [...] [address] | | | [place] [address] | + + + CBC (HEMOGRAM) ONLY [...] | + + + | Blood | [facility], CORE [address] [facility] | | | [place] [address] | + + + + + | [...] | | ------ CBC (HEMOGRAM) | | ONLY[[id number]] Abnormal Final | | result Please view [...] | + + + | Blood | [facility], CORE [address] [facility] | | | [place] [address] | + + + + + | [...] | >60 | >60 mL/min | | SURINAMESE | | | + + + + | EGFR NON | >60 | >60 mL/min | | -SURINAMESE | | | + + + + [...] | + + + | Blood | [facility], CORE [address] | | | [place] [address] | + + + + + | [...] + + + | | [facility] [place], POINT OF CARE TESTS [address] | | | [place] [address] | + + + CAPILLARY BLOOD GLUCOSE [...] [address] | | | [place] [address] | + + + 12 LEAD ECG [...] | + + + | | [facility] [address] [place] [address] | | | [place] [address] | + + + CAPILLARY BLOOD GLUCOSE (NO CHG), POC (09/26/2017 12:37 PM) + +-------+ + | Component | Value | Ref Range | + +-------+ + | BLOOD GLUCOSE, POC | 88 | 70 - 99 mg/dL | + +-------+ + + + + | Specimen | Performing Laboratory | + + + | | [facility] [place], POINT OF CARE TESTS [address] | | | [place] [address] | + + + CAPILLARY BLOOD GLUCOSE (NO CHG), POC (09/26/2017 9:22 AM) + +---------+ + | Component | Value | Ref Range | + +---------+ + | BLOOD GLUCOSE, POC | 119 (H) | 70 - 99 mg/dL | + +---------+ + + + + | Specimen | Performing Laboratory | + + + | | [facility], POINT OF CARE TESTS [address] | | | [place] [address] | + + + CAPILLARY BLOOD GLUCOSE [...] TESTS [address] | | | [place] [address] | + + + CBC (HEMOGRAM) ONLY [...] | + + + | Blood | [facility], CORE [address] [place] [address] | | | [place] [address] | + + + + + | [...] | + + + | Blood | [facility], CORE [address] [facility] | | | [place] [address] | + + + + + | [...] | | ------ CBC (HEMOGRAM) | | ONLY[[id number]] Abnormal Final | | result Please view [...] | >60 | >60 mL/min | | SURINAMESE | | | + + + + | EGFR NON | >60 | >60 mL/min | | -SURINAMESE | | | + + + + [...] | + + + | Blood | [facility], CORE [address] [facility] | | | [place] [address] | + + + + + | [...] [address] | | | [place] [address] | + + + MRI BRAIN WWO [...] Note | + + | Service Account, [employer] In Interface - 09/25/2017 12:32 PM [...] | + + + | Blood | [facility], CORE [address] [facility] | | | [place] [address] | + + + + + | [...] | + + + | Blood | [facility], CORE [address] [facility] [address] | | | [place] [address] | + + + + + | [...] | | ------ CBC (HEMOGRAM) | | ONLY[[id number]] Abnormal Final | | result Please view [...] | >60 | >60 mL/min | | SURINAMESE | | | + + + + | EGFR NON | >60 | >60 mL/min | | -SURINAMESE | | | + + + + [...] | + + + | Blood | [facility], CORE [address] [place] [address] | | | [place] [address] | + + + + + | [...] | | [facility] [address] [facility] | | | [place] [address] | + + + MODIFIED BARIUM SWALLOWING [...] Laboratory | + + + | | [facility] RAD[facility] VASC US | + + + [...] | + + + | Blood | [facility], CORE [address] [place] [address] | | | [place] [address] | + + + + + | [...] | >60 | >60 mL/min | | SURINAMESE | | | + + + + | EGFR NON | >60 | >60 mL/min | | -SURINAMESE | | | + + + + [...] | + + + | Blood | [facility], CORE [address] [facility] | | | [place] [address] | + + + + + | [...] | + + + | Blood | [facility], CORE [address] [facility] | | | [place] [address] | + + + + + | [...] | | ------ CBC (HEMOGRAM) | | ONLY[[id number]] Abnormal Final | | result Please view [...] | + + + | Blood | [facility], CORE [address] [facility] | | | [place] [address] | + + + + + | [...] | + + + | Blood | [facility], CORE [address] | | | [place] [address] | + + + + + | [...] | | ------ CBC (HEMOGRAM) | | ONLY[[id number]] Abnormal Final | | result Please view [...] | >60 | >60 mL/min | | SURINAMESE | | | + + + + | EGFR NON | >60 | >60 mL/min | | -SURINAMESE | | | + + + + [...] | + + + | Blood | [facility], CORE [address] [facility] | | | [place] [address] | + + + + + | [...] + + + | | [facility] [place], POINT OF CARE TESTS [address] | | | [place] [address] | + + + CAPILLARY BLOOD GLUCOSE [...] TESTS [address] | | | [place] [address] | + + + CT HEAD WO [...] | + + + | Blood | [facility], CORE [address] [facility] | | | [place] [address] | + + + 12 LEAD ECG [...] Laboratory | + + + | | [facility] [address] [place] [address] | | | [place] [address] | + + + CBC (HEMOGRAM) ONLY [...] | + + + | Blood | [facility], CORE [address] [facility] | | | [place] [address] | + + + + + | [...] | + + + | Blood | [facility], CORE [address] [facility] | | | [place] [address] | + + + + + | [...] | | ------ CBC (HEMOGRAM) | | ONLY[[id number]] Abnormal Final | | result Please view [...] | >60 | >60 mL/min | | SURINAMESE | | | + + + + | EGFR NON | >60 | >60 mL/min | | -SURINAMESE | | | + + + + [...] | + + + | Blood | [facility], CORE [address] [facility] | | | [place] [address] | + + + + + | [...] [address] | | | [place] [address] | + + + CT HEAD WO CONTRAST (09/21/2017 9:53 PM) + + + | Specimen | Performing Laboratory | + + + | | [facility] RAD[facility] VOICE RECOGNITION 2 | [...] | + + + | Blood | [facility], CORE [address] [facility] | | | [place] [address] | + + + + + | [...] | + + + | Blood | [facility], CORE [address] [facility] | | | [place] [address] | + + + + + | [...] | | ------ CBC (HEMOGRAM) | | ONLY[[id number]] Abnormal Final | | result Please view [...] | >60 | >60 mL/min | | SURINAMESE | | | + + + + | EGFR NON | >60 | >60 mL/min | | -SURINAMESE | | | + + + + [...] | + + + | Blood | [facility], CORE [address] [facility] | | | [place] [address] | + + + + + | [...] Laboratory | + + + | | [facility] RAD[facility] VOICE RECOGNITION 2 | [...] Procedure Note | + + | Service [employer], [employer] In Interface - 09/20/2017 6:25 PM PDT [...] Laboratory | + + + | | [facility] RAD[facility] VOICE RECOGNITION 2 | [...] Note | + + | Service Account, [employer] In Interface - 09/20/2017 6:26 PM [...] Note | + + | Service Account, [employer] In Interface - 09/20/2017 5:17 PM PDT [...] Laboratory | + + + | | [facility] [address] [place] [address] | | | [place] [address] | + + + CBC (HEMOGRAM) ONLY [...] | + + + | Blood | [facility], CORE [address] [place] [address] | | | [place] [address] | + + + + + | [...] | + + + | Blood | [facility], CORE [address] [facility] | | | [place], [place] [address] | + + + + + | [...] | | ------ CBC (HEMOGRAM) | | ONLY[[id number]] Abnormal Final | | result Please view [...] | >60 | >60 mL/min | | SURINAMESE | | | + + + + | EGFR NON | >60 | >60 mL/min | | -SURINAMESE | | | + + + + [...] | + + + | Blood | [facility], CORE [address] [facility] | | | [place] [address] | + + + + + | [...] | + + + | Blood | [facility], CORE [address] [facility] | | | [place] [address] | + + + + + | [...] | + + + | Blood | [facility], CORE [address] [facility] | | | [place] [address] | + + + + + [...] | | ------ CBC (HEMOGRAM) | | ONLY[[id number]] Abnormal Final | | result Please view [...] | >60 | >60 mL/min | | SURINAMESE | | | + + + + | EGFR NON | >60 | >60 mL/min | | -SURINAMESE | | | + + + + [...] | + + + | Blood | [facility], CORE [address] [place] [address] | | | [place] [address] | + + + + + | [...] | + + + | Blood | [facility], CORE [address] [facility] | | | [place] [address] | + + + + + | [...] | + + + | Blood | [facility], CORE [address] [facility] | | | [place] [address] | + + + + + | [...] | | ------ CBC (HEMOGRAM) | | ONLY[[id number]] Abnormal Final | | result Please view [...] | >60 | >60 mL/min | | SURINAMESE | | | + + + + | EGFR NON | >60 | >60 mL/min | | -SURINAMESE | | | + + + + [...] | + + + | Blood | [facility], [address]ORE [address] | | | [place] [address] | + + + + + | [...] Note | + + | Service Account, [employer] In Interface - 09/17/2017 11:53 AM [...] | + + + | Blood | [facility], CORE [address] [facility] | | | [place] [address] | + + + + + | [...] | + + + | Blood | [facility], CORE [address] [place] [address] | | | [place] [address] | + + + + + | [...] | | ------ CBC (HEMOGRAM) | | ONLY[[id number]] Abnormal Final | | result Please view [...] | >60 | >60 mL/min | | SURINAMESE | | | + + + + | EGFR NON | >60 | >60 mL/min | | -SURINAMESE | | | + + + + [...] | + + + | Blood | [facility], CORE [address] [place] [address] | | | [place] [address] | + + + + + | [...] Laboratory | + + + | | [facility] RADI[facility] VOICE RECOGNITION | + + + + + | Narrative | + + | EXAM: [place] CHEST PICC LINE CHECK HISTORY: PICC placement [...] Interface - 09/16/2017 1:34 PM PDT EXAM: [place] CHEST | | PICC LINE CHECK HISTORY: [...] Laboratory | + + + | | [facility] RADIOLOGY VOICE RECOGNITION | + + + + + | Narrative | + + | EXAM: [place] CHEST PICC LINE CHECK HISTORY: Evaluate PICC [...] Note | + + | Service Account, [employer] In Interface - 09/16/2017 11:41 AM PDT EXAM: [place] CHEST | | PICC LINE CHECK HISTORY: [...] | + + + | Blood | [facility], [facility] [address] [facility] [address] [facility] | | | [place] [address] | + + + + + | [...] | + + + | Blood | [facility], CORE [address] | | | [place] [address] | + + + + + | [...] | | ------ CBC (HEMOGRAM) | | ONLY[[id number]] Abnormal Final | | result Please view [...] | >60 | >60 mL/min | | SURINAMESE | | | + + + + | EGFR NON | >60 | >60 mL/min | | -SURINAMESE | | | + + + + [...] | + + + | Blood | [facility], CORE [address] [facility] | | | [place] [address] | + + + + + | [...] | Narrative | + + | EXAM: LA CHEST 1 VIEW HISTORY: COMPARISON: None. 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 Catheter lot number: [id number] with a length of 55 cm | [...] Laboratory | + + + | | [facility] RADIOLOGY VOICE RECOGNITION | + + + [...] | + + + | Blood | [facility], CORE [address] [place] [address] | | | [place] [address] | + + + + + | [...] | + + + | Blood | [facility]ORATORY [facility], CORE [address] | | | [place] [address] | + + + + + | [...] | | ------ CBC (HEMOGRAM) | | ONLY[[id number]] Abnormal Final | | result Please view [...] | >60 | >60 mL/min | | SURINAMESE | | | + + + + | EGFR NON | >60 | >60 mL/min | | -SURINAMESE | | | + + + + [...] | + + + | Blood | [facility], CORE [address] | | | [place] [address] | + + + + + | [...] Laboratory | + + + | | [facility] RADIOLOGY VOICE RECOGNITION | + + + [...] | + + + | Blood | [facility]ATORY [facility], CORE [address] [facility] | | | [place] [address] | + + + + + | [...] | + + + | Blood | [facility], CORE [address] [facility] | | | [place], [place] [address] | + + + + + | [...] | | ------ CBC (HEMOGRAM) | | ONLY[[id number]] Abnormal Final | | result Please view [...] | >60 | >60 mL/min | | SURINAMESE | | | + + + + | EGFR NON | >60 | >60 mL/min | | -SURINAMESE | | | + + + + [...] | + + + | Blood | [facility], CORE [address] [facility] | | | [place] [address] | + + + + + | [...] | + + + | Blood | [facility], CORE [address] [facility] | | | [place], [place] [address] | + + + + + | [...] | + + + | Blood | [facility], CORE [address] [facility] | | | [place] [address] | + + + + + | [...] | | ------ CBC (HEMOGRAM) | | ONLY[[id number]] Abnormal Final | | result Please view [...] | >60 | >60 mL/min | | SURINAMESE | | | + + + + | EGFR NON | >60 | >60 mL/min | | -SURINAMESE | | | + + + + [...] | + + + | Blood | [facility], CORE [address] [facility] | | | [place] [address] | + + + + + | [...] | + + + | Blood | [facility], CORE [address] [facility] | | | [place] [address] | + + + + + | [...] | + + + | Blood | [facility], CORE [address] [facility] | | | [place] [address] | + + + + + | [...] | | ------ CBC (HEMOGRAM) | | ONLY[[id number]] Abnormal Final | | result Please view [...] | >60 | >60 mL/min | | SURINAMESE | | | + + + + | EGFR NON | >60 | >60 mL/min | | -SURINAMESE | | | + + + + [...] | + + + | Blood | [facility], CORE [address] [facility] | | | [place] [address] | + + + + + | [...] Laboratory | + + + | | [facility] RADIOLOGY VOICE RECOGNITION | + + + [...] Laboratory | + + + | | [employer] RADIOLOGY VOICE RECOGNITION | + + + [...] | + + + | Blood | [facility], CORE [address] [facility] | | | [place] [address] | + + + + + | [...] | + + + | Blood | [facility], CORE [address] [facility] | | | [place] [address] | + + + + + | [...] | | ------ CBC (HEMOGRAM) | | ONLY[[id number]] Abnormal Final | | result Please view [...] | >60 | >60 mL/min | | SURINAMESE | | | + + + + | EGFR NON | >60 | >60 mL/min | | -SURINAMESE | | | + + + + [...] | + + + | Blood | [facility], CORE [address] [facility] | | | [place] [address] | + + + + + | [...] | + + + | Blood | [facility], CORE [address] [facility] | | | [place] [address] | + + + X-RAY ABD LTD FEEDING TUBE EVAL (09/10/2017 12:44 PM) + + + | Specimen | Performing Laboratory | + + + | | [facility] RADIOLOGY VOICE RECOGNITION 2 | [...] Laboratory | + + + | | [facility] RADIOLOGY VOICE RECOGNITION | + + + + + | Narrative | + + | STUDY: LA CHEST 1 VIEW 09/10/17 07:02:01 HISTORY: Possible [...] Note | + + | Service Account, [employer] In Interface - 09/10/2017 9:25 AM PDT STUDY: LA CHEST 1 | | VIEW 09/10/17 07:02:01 [...] | + + + | Blood | [facility], CORE [address] | | | [place] [address] | + + + AMYLASE, PLASMA (09/10/2017 5:08 AM) + +-------+ + | Component | Value | Ref Range | + +-------+ + | AMYLASE,PLASMA | 58 | 25 - 115 U/L | + +-------+ + + + + | Specimen | Performing Laboratory | + + + | Blood | [facility], CORE [address] [place] [address] | | | [place] [address] | + + + CBC (HEMOGRAM) ONLY [...] | + + + | Blood | [facility]ORATORY [facility], CORE [address] [facility] | | | [place] [address] | + + + + + | [...] | + + + | Blood | [facility], CORE [address] [facility] | | | [place] [address] | + + + + + | [...] | | ------ CBC (HEMOGRAM) | | ONLY[[id number]] Abnormal Final | | result Please view [...] | >60 | >60 mL/min | | SURINAMESE | | | + + + + | EGFR NON | >60 | >60 mL/min | | -SURINAMESE | | | + + + + [...] | + + + | Blood | [facility], CORE [address] [place] [address] | | | [place] [address] | + + + + + | [...] + | | [facility] [address] [place] [address] | | | [place] [address] | + + + X-RAY ABD LTD [...] Note | + + | Service Account, [employer] In Interface - 09/10/2017 11:11 AM PDT [...] [address] | | | [place] [address] | + + + MAGNESIUM, PLASMA (09/09/2017 3:50 AM) + +-------+ + | Component | Value | Ref Range | + +-------+ + | MAGNESIUM,PLASMA | 2.0 | 1.6 - 2.6 mg/dL | + +-------+ + + + + | Specimen | Performing Laboratory | + + + | Blood | [facility], CORE [address] | | | [place] [address] | + + + + + | [...] | + + + | Blood | [facility], CORE [address] [facility] | | | [place] [address] | + + + + + | [...] | | ------ CBC (HEMOGRAM) | | ONLY[[id number]] Abnormal Final | | result Please view [...] | >60 | >60 mL/min | | SURINAMESE | | | + + + + | EGFR NON | >60 | >60 mL/min | | -SURINAMESE | | | + + + + [...] | + + + | Blood | [facility], CORE [address] [facility] | | | [place] [address] | + + + + + | [...] | + + + | Blood | [facility], CORE [address] [facility] | | | [place] [address] | + + + + + | [...] | >60 | >60 mL/min | | SURINAMESE | | | + + + + | EGFR NON | >60 | >60 mL/min | | -SURINAMESE | | | + + + + [...] | + + + | Blood | [facility] LABORATORY [facility], CORE [address] [facility] | | | [place] [address] | + + + + + | [...] | | ------ CBC (HEMOGRAM) | | ONLY[[id number]] Abnormal Final | | result Please view [...] | + + + | Blood | [facility], CORE [address] [place] [address] | | | [place] [address] | + + + LIVER SET (AST,ALT,BILI [...] | + + + | Blood | [facility], CORE [address] [facility] | | | [place] [address] | + + + X-RAY ABD LTD FEEDING TUBE EVAL (09/08/2017 4:38 AM) + + + | Specimen | Performing Laboratory | + + + | | [facility] RADIOLOGY VOICE RECOGNITION | + + + [...] Laboratory | + + + | | [facility] [address] [place] [address] | | | [place] [address] | + + + X-RAY PORTABLE CHEST 1 VIEW (09/07/2017 6:12 AM) + + + | Specimen | Performing Laboratory | + + + | | [facility] RADIOLOGY VOICE RECOGNITION | + + + + + | Narrative | + + | EXAM: LA CHEST 1 VIEW HISTORY: Post extubation COMPARISON: [...] Interface - 09/07/2017 10:46 AM PDT EXAM: LA CHEST 1 | | VIEWHISTORY: Post extubationCOMPARISON: [...] | + + + | Blood | [facility], CORE [address] [facility] | | | [place] [address] | + + + + + | [...] | >60 | >60 mL/min | | SURINAMESE | | | + + + + | EGFR NON | >60 | >60 mL/min | | -SURINAMESE | | | + + + + [...] | + + + | Blood | [facility], CORE [address] [facility] | | | [place] [address] | + + + + + | [...] | + + + | Blood | [facility], CORE [address] [facility] | | | [place] [address] | + + + + + | [...] | | ------ CBC (HEMOGRAM) | | ONLY[[id number]] Abnormal Final | | result Please view [...] Laboratory | + + + | | [facility] RADIOLOGY VOICE RECOGNITION | + + + [...] Laboratory | + + + | | [facility] [address] [place] [address] | | | [place] [address] | + + + PROCEDURE NOTE (09/06/2017 [...] on the 1st attempt. Midline lot number [id number]; there was positive blood | | return. [...] | >60 | >60 mL/min | | SURINAMESE | | | + + + + | EGFR NON | >60 | >60 mL/min | | -SURINAMESE | | | + + + + [...] | + + + | Blood | [facility], CORE [address] | | | [place] [address] | + + + + + | [...] | + + + | Blood | [facility], [facility] [address] [facility] | | | [place] [address] | + + + + + | [...] | Narrative | + + | EXAM: LA CHEST 1 VIEW HISTORY: Evaluation after chest [...] Interface - 09/05/2017 10:16 AM PDT EXAM: LA CHEST 1 | | VIEW HISTORY: Evaluation [...] | + + + | Blood | [facility], CORE [address] | | | [place] [address] | + + + MAGNESIUM, PLASMA (09/05/2017 3:54 AM) + +-------+ + | Component | Value | Ref Range | + +-------+ + | MAGNESIUM,PLASMA | 1.8 | 1.6 - 2.6 mg/dL | + +-------+ + + + + | Specimen | Performing Laboratory | + + + | Blood | [facility], CORE [address] | | | [place] [address] | + + + + + | [...] | | ------ CBC (HEMOGRAM) | | ONLY[[id number]] Abnormal Final | | result Please view [...] | >60 | >60 mL/min | | SURINAMESE | | | + + + + | EGFR NON | >60 | >60 mL/min | | -SURINAMESE | | | + + + + [...] | + + + | Blood | [facility], CORE [address] [facility] | | | [place] [address] | + + + + + | [...] | >60 | >60 mL/min | | SURINAMESE | | | + + + + | EGFR NON | >60 | >60 mL/min | | -SURINAMESE | | | + + + + [...] | + + + | Blood | [facility]ORATORY [facility], [facility] [address] [facility] | | | [place] [address] | + + + + + | [...] tomorrow morning. CB Henson Pager / ID: [phone] | + + CULTURE, SPUTUM (09/04/2017 1:17 PM) + + + | Specimen | Performing Laboratory | + + + | Sputum - | [facility] [place] [id number] [place] [address] | | Endotracheal tube | [id number] | | tip | | + + [...] + | Urine - Catheter - | [facility], CORE [address] | | indwelling | [facility] [place] [address] | + + + UA, DIPSTICK ONLY [...] + | SPECIFIC GRAVITY | 1.011Comment: Specific Anderson performed by | 1.005 - 1.030 | | | refractometry | | + + + + + + + | Specimen | Performing Laboratory | + + + | Urine - Catheter - | [facility], CORE [address] [facility] | | indwelling | [place] [address] | + + + CULTURE, BLOOD BACTI & YEAST [facility] (09/04/2017 1:16 PM) + + + + | Component | Value | Ref Range | + + + + | CULTURE RESULT | Final Report:No Bacteria or Yeast isolated | | | | at 5 days. | | + + + + + + + | Specimen | Performing Laboratory | + + + | Blood - Arterial | [facility], CORE [address] [facility] | | line | [place] [address] | + + + CULTURE, BLOOD BACTI [...] + + | Blood - Peripheral | [facility], CORE [address] [place] [address] | | | [place] [address] | + + + CULTURE, BLOOD BACTI [...] ------ CULTURE, BLOOD | | BACTI & Y...[[id number]] Final | | result Please view results [...] ------ CULTURE, BLOOD | | DELMAI & Y...[[id number]] Final | | result Please view results [...] Laboratory | + + + | | [facility] [address] [facility] | | | [place] [address] | + + + X-RAY PORTABLE CHEST 1 VIEW (09/04/2017 7:04 AM) + + + | Specimen | Performing Laboratory | + + + | | [facility] RADIOLOGY VOICE RECOGNITION | + + + + + | Narrative | + + | EXAM: LA CHEST 1 VIEW HISTORY: Hypoxia. Intubated. COMPARISON: [...] Note | + + | Service Account, [employer] In Interface - 09/04/2017 9:49 AM PDT EXAM: LA CHEST 1 | | VIEW HISTORY: Hypoxia. [...] | + + + | Blood | [facility], CORE [address] [place] [address] | | | [place] [address] | + + + CBC (HEMOGRAM) ONLY [...] | + + + | Blood | [facility], CORE [address] [place] [address] | | | [place] [address] | + + + RENAL FUNCTION SET [...] | >60 | >60 mL/min | | SURINAMESE | | | + + + + | EGFR NON | >60 | >60 mL/min | | -SURINAMESE | | | + + + + [...] | + + + | Blood | [facility], CORE [address] [place] [address] [place] | | | [place] [address] | + + + + + | [...] | + + + | Blood | [facility]ORATORY [facility], CORE [address] | | | [place] [address] | + + + + + | [...] | | ------ CBC (HEMOGRAM) | | ONLY[[id number]] Abnormal Final | | result Please view [...] [address] | | | [place] [address] | + + + CAPILLARY BLOOD GLUCOSE (NO CHG), POC (09/04/2017 12:17 AM) + +-------+ + | Component | Value | Ref Range | + +-------+ + | BLOOD GLUCOSE, POC | 72 | 70 - 99 mg/dL | + +-------+ + + + + | Specimen | Performing Laboratory | + + + | | [facility] [address] | | | [place] [address] | + + + CAPILLARY BLOOD GLUCOSE [...] [address] | | | [place] [address] | + + + CAPILLARY BLOOD GLUCOSE [...] [address] | | | [place] [address] | + + + VASC LAB VENOUS DUPLEX LOWER EXTREMITY BILAT COMP (09/03/2017 9:51 AM) + + + | Specimen | Performing Laboratory | + + + | | [facility] | + + + + + [...] Note | + + | Service Account, [employer] In Interface - 09/03/2017 10:27 AM PDT [...] + + + | Sputum - | [facility] [address] [place] [address] | | Expectorated | [id number] | + + + + + | [...] | + + + | Blood | [facility], CORE [address] [facility] | | | [place] [address] | + + + X-RAY ABD LTD FEEDING TUBE EVAL (09/03/2017 4:32 AM) + + + | Specimen | Performing Laboratory | + + + | | [facility] RADIOLOGY VOICE RECOGNITION | + + + [...] + + + | Sputum - | [facility] [place] [address] [place], [place] | | Expectorated | [id number] | + + + + + | [...] | + + + | Blood | [facility], CORE [address] [facility] [place] | | | [place] [address] | + + + CBC (HEMOGRAM) ONLY [...] | + + + | Blood | [facility], CORE [address] [facility] | | | [place] [address] | + + + RENAL FUNCTION SET [...] | >60 | >60 mL/min | | SURINAMESE | | | + + + + | EGFR NON | >60 | >60 mL/min | | -SURINAMESE | | | + + + + [...] | + + + | Blood | [facility], CORE [address] [facility] [place] | | | [place] [address] | + + + + + | [...] | + + + | Blood | [facility], CORE [address] [facility] [place] | | | [place] [address] | + + + + + | [...] | | ------ CBC (HEMOGRAM) | | ONLY[[id number]] Abnormal Final | | result Please view results for these tests on the | | individual orders. | + + OPERATION RECORD (09/02/2017 6:53 PM) + + | Procedure Note | + + | Fidelina Shields MD - 09/02/2017 6:53 PM PDT Date of Service: 09/02/2017 | | Attending Surgeon: Fidelina Shields MD Medical Lab Technician(s): | | Ajay Garcia MD, resident. [...] 09/02/2017 18:15:29DT: 09/02/2017 18:53:52Job #: | | [id number] to federal Medicare and Medicaid regulations I was present for | | the entire procedure.Fidelina Tenorio ProfessorDepartment of SurgeryOffice: | | [phone]: [id number] has been electronically signed by Fidelina Shields MD, | | 09/03/2017 at 9:11 AM. | | | | | |Fidelina Shields MD | |Cryptologic Supervisor | |Department of Surgery | |Office: [phone] | |Pager: [phone] | | | |This has been electronically [...] | + + + | Blood | [facility], CORE [address] [place] [address] | | | [place] [address] | + + + BLOOD GASES, ARTERIAL [...] | + + + | Blood | [facility], CORE [address] [facility] | | | [facility] [place] [address] | + + + CULTURE, AFB (ALL SPEC TYPES EXCEPT BLOOD) (09/02/2017 5:10 PM) + + + | Specimen | Performing Laboratory | + + + | Sputum - | [facility] [address] [place], [place] | | Expectorated | [id number] | + + + + + | [...] | + + + | Blood | [facility], CORE [address] [facility] | | | [place] [address] | + + + + + | [...] | >60 | >60 mL/min | | SURINAMESE | | | + + + + | EGFR NON | >60 | >60 mL/min | | -SURINAMESE | | | + + + + [...] | + + + | Blood | [facility], CORE [address] [facility] | | | [place] [address] | + + + + + | [...] INGRID Zhang | | Yolanda Garcia Surgery [id number] Pursuant to federal Medicare and Medicaid regulations I | | was present for the entire procedure. Fidelina Shields MD Medical Lab Technician | | Professor Department of Surgery Office: [phone] Pager: [phone] This has been | | electronically signed [...] | + + + | Blood | [facility], CORE [address] | | | [place] [address] | + + + INR (09/02/2017 9:39 AM) + + + + | Component | Value | Ref Range | + + + + | INR | 1.26 (H) | 0.90 - 1.20 INR | + + + + + + + | Specimen | Performing Laboratory | + + + | Blood | [facility], CORE [address] | | | [place] [address] | + + + + + | [...] | | Attending Surgeon: Fidelina Shields MD Medical Lab Technician(s): Haim Peralta MD. | | Ajay [...] 09/02/2017 06:17:53DT: 09/02/2017 | | 06:51:37Job #: [id number] to federal Medicare and Medicaid regulations I | | was present for the entire procedure.Fidelina Tenorio ProfessorDepartment of | | SurgeryOffice: [phone]: [id number] has been electronically signed by Fidelina Snyder | | MD Cornelius, 09/02/2017 at 10:40 AM. | | | | | |Pursuant to federal Medicare and Medicaid regulations I was present for the entire procedur e. | | | | | | | |Fidelina Shields MD | |Cryptologic Supervisor | |Department of Surgery | |Office: [phone] | |Pager: [phone] | | | |This has been electronically [...] | + + + | Blood | [facility], CORE [address] [facility] | | | [place] [address] | + + + HEMATOCRIT (09/02/2017 5:16 AM) + + + + | Component | Value | Ref Range | + + + + | HEMATOCRIT | 34.0 (L) | 41.0 - 53.0 % | + + + + + + + | Specimen | Performing Laboratory | + + + | Blood | [facility], CORE [address] [facility] | | | [place] [address] | + + + PRODUCT - RED CELLS LEUKOREDUCED (09/02/2017 2:53 AM) + + + + | Component | Value | Ref Range | + + + + | PRODUCT DESCRIPTION | -1 RED BLOOD CELL ADENINE-SALINE ADDED | | | | LEUKOCYTE | | + + + + | PRODUCT UNIT # | [id number] | | + + + + | UNIT ABO | O | | + + + + | UNIT RH | POS | | + + + + | STATUS OF UNIT | Presumed Transfused | | + + + + | EXPIRATION DATE | [id number] | | + + + + | BLOOD TYPE BARCODE | 5100 | | + + + + | BLOOD PRODUCT CODE | [id number] | | + + + + + + + | Specimen | Performing Laboratory | + + + | | [facility]OR[facility] SERVICES, TRANSFUSION MEDICINE [address] | | | [place] [address] | + + + CT PELVIS WO IV CONTRAST (09/02/2017 1:45 AM) + + + | Specimen | Performing Laboratory | + + + | | [facility] RADIOLOGY VOICE RECOGNITION | + + + [...] | + + + | Blood | [facility], CORE [address] | | | [place] [address] | + + + RENAL FUNCTION SET [...] | >60 | >60 mL/min | | SURINAMESE | | | + + + + | EGFR NON | >60 | >60 mL/min | | -SURINAMESE | | | + + + + [...] | + + + | Blood | [facility], CORE [address] | | | [place] [address] | + + + + + | [...] | + + + | Blood | [facility] LABORATORY [facility], [facility] [address] | | | [place] [address] | + + + + + | [...] | | ------ CBC (HEMOGRAM) | | ONLY[[id number]] Abnormal Final | | result Please view [...] | | (http://www.cdc.gov/mmwr/preview/mmwrhtml/r | | | | [email or web address].htm), for information concerning | | | | test performance in low-prevalence | | | | populations and use in occupational | | | | screening. | | + + + + | NIL | 0.05Comment: Performed by [facility] | IU/mL | | | Laboratories, | | | | [address], | | | | [place] [address] | | | | [phone] | | | | www.How do you roll?, Gui Ervin MD - | | | | Lab. Director | | + + + + | TB AG-NIL | 0.26 | 0.00 - 0.34 IU/mL | + + + + | MITOGEN-NIL | 9.35 | IU/mL | + + + + + + + | Specimen | Performing Laboratory | + + + | Blood | [facility] [address] [place], [place] | | | [address] | + + + LACTATE (09/01/2017 8:18 PM) + +-------+ + | Component | Value | Ref Range | + +-------+ + | LACTATE | 1.6 | mmol/L | + +-------+ + + + + | Specimen | Performing Laboratory | + + + | Blood | [facility], CORE [address] [facility] | | | [place] [address] | + + + + + | [...] | + + + | Blood | [facility], CORE [address] [facility] | | | [place] [address] | + + + X-RAY KNEE 2 VIEWS LEFT (09/01/2017 7:48 PM) + + + | Specimen | Performing Laboratory | + + + | | [facility] RADIOLOGY VOICE RECOGNITION | + + + [...] Note | + + | Service Account, [employer] In Interface - 09/02/2017 8:55 AM PDT [...] | Narrative | + + | EXAM: LA CHEST 1 VIEW HISTORY: Hypoxemia COMPARISON: 09/01/17 [...] Interface - 09/02/2017 10:34 AM PDT EXAM: LA CHEST 1 | | VIEW HISTORY: HypoxemiaCOMPARISON: [...] | + + + | Blood | [facility], CORE [address] | | | [place] [address] | + + + HEMATOCRIT (09/01/2017 5:43 PM) + + + + | Component | Value | Ref Range | + + + + | HEMATOCRIT | 34.1 (L) | 41.0 - 53.0 % | + + + + + + + | Specimen | Performing Laboratory | + + + | Blood | [facility], CORE [address] | | | [place] [address] | + + + PRODUCT - PLATELET PHERESIS LEUKOREDUCED (09/01/2017 4:42 PM) + + + + | Component | Value | Ref Range | + + + + | PRODUCT DESCRIPTION | PLATELETS PHERESIS LEUKOCYTE REDUCED | | + + + + | PRODUCT UNIT # | [id number] | | + + + + | UNIT ABO | O | | + + + + | UNIT RH | POS | | + + + + | STATUS OF UNIT | Presumed Transfused | | + + + + | EXPIRATION DATE | [id number] | | + + + + | BLOOD TYPE BARCODE | | | + + + + | BLOOD PRODUCT CODE | [id number] | | + + + + + + + | Specimen | Performing Laboratory | + + + | | [facility], TRANSFUSION MEDICINE [address] [place] [address] | | | [place] [address] | + + + BLOOD GASES, ARTERIAL [...] | + + + | Blood | [facility] LABOR[facility], CORE [address] | | | [place] [address] | + + + LACTATE (09/01/2017 4:19 PM) + +-------+ + | Component | Value | Ref Range | + +-------+ + | LACTATE | 1.6 | mmol/L | + +-------+ + + + + | Specimen | Performing Laboratory | + + + | Blood | [facility], [facility] [address] [facility] | | | [place] [address] | + + + + + | [...] | + + + | Blood | [facility], CORE [address] [facility] | | | [place] [address] | + + + COMPLETE METABOLIC SET [...] | >60 | >60 mL/min | | SURINAMESE | | | + + + + | EGFR NON | >60 | >60 mL/min | | -SURINAMESE | | | + + + + [...] | + + + | Blood | [facility], CORE [address] | | | [place] [address] | + + + + + | [...] | | ------ CBC (HEMOGRAM) | | ONLY[[id number]] Abnormal Final | | result Please view [...] | + + + | Blood | [facility], CORE [address] [facility] | | | [place] [address] | + + + + + | [...] | + + + | Blood | [facility] LABORATORY [facility], CORE [address] [facility] | | | [place] [address] | + + + + + | [...] micropuncture access set was exchanged for a [employer] | | wire. Under fluoroscopic guidance, a 5 Fr flush catheter was used to evaluate the | | distal abdominal aorta and pelvic vasculature. A wire and catheter were then used to | | select the left common and internal iliac arteries from the right [employer] approach. DSA | | was performed from [...] | | iliac arteries from the right [employer] SPREADER approach. DSA was performed from the left [...] and internal iliac arteries from the right ASPHALT SPREADER approach. DSA was performed from the left [...] | + + + | Blood | [facility], POINT OF CARE TESTS [address] [facility] | | | [place] [address] | + + + EXPLORATORY LAPAROTOMY (09/01/2017 12:31 PM) + + | Narrative | + + | Fidelina Shields MD 09/01/2017 12:42 PM BRIEF OPERATIVE NOTE: | | Date: 09/01/2017 Author: Fidelina Shields MD Attending Physician: | | Fidelina Shields MD Medical Lab Technician(s): Haim Peralta MD, Glo Olmos MD | [...] the case. | | Fidelina Shields MD Cryptologic Supervisor Division of Trauma, Critical Care and | | Acute Care Surgery Office: [phone] Pager: [phone] | + + ABG-FULL ABL, POC (09/01/2017 [...] | + + + | Blood | [facility] POINT OF CARE TESTS [address] | | | [place] [address] | + + + CREATININE, BODY FLUID (09/01/2017 11:52 AM) + +-------+ + | Component | Value | Ref Range | + +-------+ + | CREATININE BODY | 0.60 | mg/dL | | FLUID | | | + +-------+ + + + + | Specimen | Performing Laboratory | + + + | Fluid - Abdominal | [facility], CORE [address] | | | [place] [address] | + + + + + | [...] | + + + | Blood | [facility], POINT OF CARE TESTS [address] | | | [place] [address] | + + + PRODUCT - PLATELET PHERESIS LEUKOREDUCED (09/01/2017 9:56 AM) + + + + | Component | Value | Ref Range | + + + + | PRODUCT DESCRIPTION | PLATELETS PHERESIS LEUKOCYTES REDUCED | | + + + + | PRODUCT UNIT # | [id number] | | + + + + | UNIT ABO | A | | + + + + | UNIT RH | POS | | + + + + | STATUS OF UNIT | Returned to Blood Bank | | + + + + | EXPIRATION DATE | [id number] | | + + + + | BLOOD TYPE BARCODE | 6200 | | + + + + | BLOOD PRODUCT CODE | [id number] | | + + + + + + + | Specimen | Performing Laboratory | + + + | | [facility], TRANSFUSION MEDICINE [address] | | | [address] [place] [address] | + + + PRODUCT - FRESH FROZEN PLASMA (09/01/2017 9:53 AM) + + + + | Component | Value | Ref Range | + + + + | PRODUCT DESCRIPTION | LIQUID PLASMA, IRRADIATED | | + + + + | PRODUCT UNIT # | [id number] | | + + + + | UNIT ABO | A | | + + + + | UNIT RH | POS | | + + + + | STATUS OF UNIT | Returned to Blood Bank | | + + + + | EXPIRATION DATE | [id number] | | + + + + | BLOOD TYPE BARCODE | 6200 | | + + + + | BLOOD PRODUCT CODE | [id number] | | + + + + + + + | Specimen | Performing Laboratory | + + + | | [facility], TRANSFUSION MEDICINE [address] | | | [place] [address] | + + + PRODUCT - FRESH FROZEN PLASMA (09/01/2017 9:53 AM) + + + + | Component | Value | Ref Range | + + + + | PRODUCT DESCRIPTION | LIQUID PLASMA, IRRADIATED | | + + + + | PRODUCT UNIT # | [id number] | | + + + + | UNIT ABO | A | | + + + + | UNIT RH | POS | | + + + + | STATUS OF UNIT | Returned to Blood Bank | | + + + + | EXPIRATION DATE | [id number] | | + + + + | BLOOD TYPE BARCODE | 6200 | | + + + + | BLOOD PRODUCT CODE | [id number] | | + + + + + + + | Specimen | Performing Laboratory | + + + | | [facility], TRANSFUSION MEDICINE [address] | | | [place] [address] | + + + PRODUCT - RED CELLS LEUKOREDUCED (09/01/2017 9:49 AM) + + + + | Component | Value | Ref Range | + + + + | PRODUCT DESCRIPTION | -3 RED BLOOD CELLS ADENINE-SALINE ADDED | | | | LEUKOCY | | + + + + | PRODUCT UNIT # | [id number] | | + + + + | UNIT ABO | O | | + + + + | UNIT RH | POS | | + + + + | STATUS OF UNIT | Returned to Blood Bank | | + + + + | EXPIRATION DATE | [id number] | | + + + + | BLOOD TYPE BARCODE | 5100 | | + + + + | BLOOD PRODUCT CODE | [id number] | | + + + + + + + | Specimen | Performing Laboratory | + + + | | [facility], TRANSFUSION MEDICINE [address] [place] [address] | | | [place] [address] | + + + PRODUCT - RED CELLS LEUKOREDUCED (09/01/2017 9:49 AM) + + + + | Component | Value | Ref Range | + + + + | PRODUCT DESCRIPTION | -3 RED BLOOD CELLS ADENINE-SALINE ADDED | | | | LEUKOCY | | + + + + | PRODUCT UNIT # | [id number] | | + + + + | UNIT ABO | O | | + + + + | UNIT RH | POS | | + + + + | STATUS OF UNIT | Returned to Blood Bank | | + + + + | EXPIRATION DATE | [id number] | | + + + + | BLOOD TYPE BARCODE | 5100 | | + + + + | BLOOD PRODUCT CODE | [id number] | | + + + + + + + | Specimen | Performing Laboratory | + + + | | [facility], TRANSFUSION MEDICINE [address] [facility] | | | [place] [address] | + + + PRODUCT - RED CELLS LEUKOREDUCED (09/01/2017 9:49 AM) + + + + | Component | Value | Ref Range | + + + + | PRODUCT DESCRIPTION | -1 RED BLOOD CELL ADENINE-SALINE ADDED | | | | LEUKOCYTE | | + + + + | PRODUCT UNIT # | [id number] | | + + + + | UNIT ABO | O | | + + + + | UNIT RH | POS | | + + + + | STATUS OF UNIT | Returned to Blood Bank | | + + + + | EXPIRATION DATE | [id number] | | + + + + | BLOOD TYPE BARCODE | 5100 | | + + + + | BLOOD PRODUCT CODE | [id number] | | + + + + + + + | Specimen | Performing Laboratory | + + + | | [facility], TRANSFUSION MEDICINE [address] | | | [place] [address] | + + + PRODUCT - RED CELLS LEUKOREDUCED (09/01/2017 9:49 AM) + + + + | Component | Value | Ref Range | + + + + | PRODUCT DESCRIPTION | -1 RED BLOOD CELL ADENINE-SALINE ADDED | | | | LEUKOCYTE | | + + + + | PRODUCT UNIT # | [id number] | | + + + + | UNIT ABO | O | | + + + + | UNIT RH | POS | | + + + + | STATUS OF UNIT | Returned to Blood Bank | | + + + + | EXPIRATION DATE | [id number] | | + + + + | BLOOD TYPE BARCODE | 5100 | | + + + + | BLOOD PRODUCT CODE | [id number] | | + + + + + + + | Specimen | Performing Laboratory | + + + | | [facility], TRANSFUSION MEDICINE [address] [facility] | | | [address] [facility] [address] | + + + PRODUCT - RED CELLS LEUKOREDUCED (09/01/2017 9:49 AM) + + + + | Component | Value | Ref Range | + + + + | PRODUCT DESCRIPTION | -1 RED BLOOD CELL ADENINE-SALINE ADDED | | | | LEUKOCYTE | | + + + + | PRODUCT UNIT # | [id number] | | + + + + | UNIT ABO | O | | + + + + | UNIT RH | POS | | + + + + | STATUS OF UNIT | Returned to Blood Bank | | + + + + | EXPIRATION DATE | [id number] | | + + + + | BLOOD TYPE BARCODE | 5100 | | + + + + | BLOOD PRODUCT CODE | [id number] | | + + + + + + + | Specimen | Performing Laboratory | + + + | | [facility], TRANSFUSION MEDICINE [address] [facility] | | | [place] [address] | + + + PRODUCT - RED CELLS LEUKOREDUCED (09/01/2017 9:49 AM) + + + + | Component | Value | Ref Range | + + + + | PRODUCT DESCRIPTION | -1 RED BLOOD CELL ADENINE-SALINE ADDED | | | | LEUKOCYTE | | + + + + | PRODUCT UNIT # | [id number] | | + + + + | UNIT ABO | O | | + + + + | UNIT RH | POS | | + + + + | STATUS OF UNIT | Returned to Blood Bank | | + + + + | EXPIRATION DATE | [id number] | | + + + + | BLOOD TYPE BARCODE | 5100 | | + + + + | BLOOD PRODUCT CODE | [id number] | | + + + + + + + | Specimen | Performing Laboratory | + + + | | [facility], TRANSFUSION MEDICINE [address] [facility] | | | [place] [address] | + + + PRODUCT - FRESH FROZEN PLASMA (09/01/2017 9:46 AM) + + + + | Component | Value | Ref Range | + + + + | PRODUCT DESCRIPTION | PLASMA THAWED | | + + + + | PRODUCT UNIT # | [id number] | | + + + + | UNIT ABO | B | | + + + + | UNIT RH | POS | | + + + + | STATUS OF UNIT | Returned to Blood Bank | | + + + + | EXPIRATION DATE | [id number] | | + + + + | BLOOD TYPE BARCODE | 7300 | | + + + + | BLOOD PRODUCT CODE | [id number] | | + + + + + + + | Specimen | Performing Laboratory | + + + | | [facility], TRANSFUSION MEDICINE [address] | | | [place] [address] | + + + PRODUCT - FRESH FROZEN PLASMA (09/01/2017 9:46 AM) + + + + | Component | Value | Ref Range | + + + + | PRODUCT DESCRIPTION | PLASMA THAWED | | + + + + | PRODUCT UNIT # | [id number] | | + + + + | UNIT ABO | B | | + + + + | UNIT RH | POS | | + + + + | STATUS OF UNIT | Returned to Blood Bank | | + + + + | EXPIRATION DATE | [id number] | | + + + + | BLOOD TYPE BARCODE | 7300 | | + + + + | BLOOD PRODUCT CODE | [id number] | | + + + + + + + | Specimen | Performing Laboratory | + + + | | [facility], TRANSFUSION MEDICINE [address] [facility] | | | [place] [address] | + + + PRODUCT - FRESH FROZEN PLASMA (09/01/2017 9:46 AM) + + + + | Component | Value | Ref Range | + + + + | PRODUCT DESCRIPTION | LIQUID PLASMA, IRRADIATED | | + + + + | PRODUCT UNIT # | [id number] | | + + + + | UNIT ABO | A | | + + + + | UNIT RH | POS | | + + + + | STATUS OF UNIT | Returned to Blood Bank | | + + + + | EXPIRATION DATE | [id number] | | + + + + | BLOOD TYPE BARCODE | 6200 | | + + + + | BLOOD PRODUCT CODE | [id number] | | + + + + + + + | Specimen | Performing Laboratory | + + + | | [facility], TRANSFUSION MEDICINE [address] [facility] | | | [place] [address] | + + + PRODUCT - FRESH FROZEN PLASMA (09/01/2017 9:46 AM) + + + + | Component | Value | Ref Range | + + + + | PRODUCT DESCRIPTION | LIQUID PLASMA, IRRADIATED | | + + + + | PRODUCT UNIT # | [id number] | | + + + + | UNIT ABO | A | | + + + + | UNIT RH | POS | | + + + + | STATUS OF UNIT | Returned to Blood Bank | | + + + + | EXPIRATION DATE | [id number] | | + + + + | BLOOD TYPE BARCODE | 6200 | | + + + + | BLOOD PRODUCT CODE | [id number] | | + + + + + + + | Specimen | Performing Laboratory | + + + | | [facility], TRANSFUSION MEDICINE [address] [facility] | | | [place] [address] | + + + PRODUCT - FRESH FROZEN PLASMA (09/01/2017 9:46 AM) + + + + | Component | Value | Ref Range | + + + + | PRODUCT DESCRIPTION | LIQUID PLASMA, IRRADIATED | | + + + + | PRODUCT UNIT # | [id number] | | + + + + | UNIT ABO | A | | + + + + | UNIT RH | POS | | + + + + | STATUS OF UNIT | Returned to Blood Bank | | + + + + | EXPIRATION DATE | [id number] | | + + + + | BLOOD TYPE BARCODE | 6200 | | + + + + | BLOOD PRODUCT CODE | [id number] | | + + + + + + + | Specimen | Performing Laboratory | + + + | | [facility], TRANSFUSION MEDICINE [address] [facility] | | | [place] [address] | + + + PRODUCT - FRESH FROZEN PLASMA (09/01/2017 9:46 AM) + + + + | Component | Value | Ref Range | + + + + | PRODUCT DESCRIPTION | LIQUID PLASMA, IRRADIATED | | + + + + | PRODUCT UNIT # | [id number] | | + + + + | UNIT ABO | A | | + + + + | UNIT RH | POS | | + + + + | STATUS OF UNIT | Returned to Blood Bank | | + + + + | EXPIRATION DATE | [id number] | | + + + + | BLOOD TYPE BARCODE | 6200 | | + + + + | BLOOD PRODUCT CODE | [id number] | | + + + + + + + | Specimen | Performing Laboratory | + + + | | [facility], TRANSFUSION MEDICINE [address] [facility] | | | [place] [address] | + + + PRODUCT - PLATELET PHERESIS LEUKOREDUCED (09/01/2017 9:43 AM) + + + + | Component | Value | Ref Range | + + + + | PRODUCT DESCRIPTION | PLATELETS PHERESIS LEUKOCYTE REDUCED | | + + + + | PRODUCT UNIT # | [id number] | | + + + + | UNIT ABO | A | | + + + + | UNIT RH | POS | | + + + + | STATUS OF UNIT | Presumed Transfused | | + + + + | EXPIRATION DATE | [id number] | | + + + + | BLOOD TYPE BARCODE | 6200 | | + + + + | BLOOD PRODUCT CODE | [id number] | | + + + + + + + | Specimen | Performing Laboratory | + + + | | [facility], TRANSFUSION MEDICINE [address] [facility] | | | [place] [address] | + + + PRODUCT - FRESH FROZEN PLASMA (09/01/2017 9:35 AM) + + + + | Component | Value | Ref Range | + + + + | PRODUCT DESCRIPTION | LIQUID PLASMA, IRRADIATED | | + + + + | PRODUCT UNIT # | [id number] | | + + + + | UNIT ABO | A | | + + + + | UNIT RH | NEG | | + + + + | STATUS OF UNIT | Presumed Transfused | | + + + + | EXPIRATION DATE | [id number] | | + + + + | BLOOD TYPE BARCODE | | | + + + + | BLOOD PRODUCT CODE | [id number] | | + + + + + + + | Specimen | Performing Laboratory | + + + | | [facility], TRANSFUSION MEDICINE [address] [facility] | | | [place] [address] | + + + PRODUCT - FRESH FROZEN PLASMA (09/01/2017 9:35 AM) + + + + | Component | Value | Ref Range | + + + + | PRODUCT DESCRIPTION | LIQUID PLASMA, IRRADIATED | | + + + + | PRODUCT UNIT # | [id number] | | + + + + | UNIT ABO | A | | + + + + | UNIT RH | NEG | | + + + + | STATUS OF UNIT | Returned to Blood Bank | | + + + + | EXPIRATION DATE | [id number] | | + + + + | BLOOD TYPE BARCODE | 0600 | | + + + + | BLOOD PRODUCT CODE | [id number] | | + + + + + + + | Specimen | Performing Laboratory | + + + | | [facility], TRANSFUSION MEDICINE [address] [facility] | | | [place] [address] | + + + PRODUCT - FRESH FROZEN PLASMA (09/01/2017 9:35 AM) + + + + | Component | Value | Ref Range | + + + + | PRODUCT DESCRIPTION | LIQUID PLASMA, IRRADIATED | | + + + + | PRODUCT UNIT # | [id number] | | + + + + | UNIT ABO | A | | + + + + | UNIT RH | POS | | + + + + | STATUS OF UNIT | Returned to Blood Bank | | + + + + | EXPIRATION DATE | [id number] | | + + + + | BLOOD TYPE BARCODE | 6200 | | + + + + | BLOOD PRODUCT CODE | [id number] | | + + + + + + + | Specimen | Performing Laboratory | + + + | | [facility], TRANSFUSION MEDICINE [address] [facility] | | | [place] [address] | + + + PRODUCT - FRESH FROZEN PLASMA (09/01/2017 9:35 AM) + + + + | Component | Value | Ref Range | + + + + | PRODUCT DESCRIPTION | LIQUID PLASMA, IRRADIATED | | + + + + | PRODUCT UNIT # | [id number] | | + + + + | UNIT ABO | A | | + + + + | UNIT RH | POS | | + + + + | STATUS OF UNIT | Presumed Transfused | | + + + + | EXPIRATION DATE | [id number] | | + + + + | BLOOD TYPE BARCODE | 6200 | | + + + + | BLOOD PRODUCT CODE | [id number] | | + + + + + + + | Specimen | Performing Laboratory | + + + | | [facility], TRANSFUSION MEDICINE [address] [facility] | | | [place] [address] | + + + PRODUCT - RED CELLS LEUKOREDUCED (09/01/2017 9:35 AM) + + + + | Component | Value | Ref Range | + + + + | PRODUCT DESCRIPTION | -1 RED BLOOD CELL ADENINE-SALINE ADDED | | | | LEUKOCYTE | | + + + + | PRODUCT UNIT # | [id number] | | + + + + | UNIT ABO | O | | + + + + | UNIT RH | POS | | + + + + | STATUS OF UNIT | Returned to Blood Bank | | + + + + | EXPIRATION DATE | [id number] | | + + + + | BLOOD TYPE BARCODE | 5100 | | + + + + | BLOOD PRODUCT CODE | [id number] | | + + + + + + + | Specimen | Performing Laboratory | + + + | | [facility], TRANSFUSION MEDICINE [address] [facility] | | | [place] [address] | + + + PRODUCT - RED CELLS LEUKOREDUCED (09/01/2017 9:35 AM) + + + + | Component | Value | Ref Range | + + + + | PRODUCT DESCRIPTION | -1 RED BLOOD CELL ADENINE-SALINE ADDED | | | | LEUKOCYTE | | + + + + | PRODUCT UNIT # | [id number] | | + + + + | UNIT ABO | O | | + + + + | UNIT RH | POS | | + + + + | STATUS OF UNIT | Returned to Blood Bank | | + + + + | EXPIRATION DATE | [id number] | | + + + + | BLOOD TYPE BARCODE | 5100 | | + + + + | BLOOD PRODUCT CODE | [id number] | | + + + + + + + | Specimen | Performing Laboratory | + + + | | [facility], TRANSFUSION MEDICINE [address] | | | [place] [address] | + + + PRODUCT - RED CELLS LEUKOREDUCED (09/01/2017 9:35 AM) + + + + | Component | Value | Ref Range | + + + + | PRODUCT DESCRIPTION | -1 RED BLOOD CELL ADENINE-SALINE ADDED | | | | LEUKOCYTE | | + + + + | PRODUCT UNIT # | [id number] | | + + + + | UNIT ABO | O | | + + + + | UNIT RH | POS | | + + + + | STATUS OF UNIT | Presumed Transfused | | + + + + | EXPIRATION DATE | [id number] | | + + + + | BLOOD TYPE BARCODE | 5100 | | + + + + | BLOOD PRODUCT CODE | [id number] | | + + + + + + + | Specimen | Performing Laboratory | + + + | | [facility], TRANSFUSION MEDICINE [address] [place] [address] | | | [place] [address] | + + + PRODUCT - RED CELLS LEUKOREDUCED (09/01/2017 9:35 AM) + + + + | Component | Value | Ref Range | + + + + | PRODUCT DESCRIPTION | -1 RED BLOOD CELL ADENINE-SALINE ADDED | | | | LEUKOCYTE | | + + + + | PRODUCT UNIT # | [id number] | | + + + + | UNIT ABO | O | | + + + + | UNIT RH | POS | | + + + + | STATUS OF UNIT | Presumed Transfused | | + + + + | EXPIRATION DATE | [id number] | | + + + + | BLOOD TYPE BARCODE | 5100 | | + + + + | BLOOD PRODUCT CODE | [id number] | | + + + + + + + | Specimen | Performing Laboratory | + + + | | [facility], TRANSFUSION MEDICINE [address] [facility] | | | [place] [address] | + + + PRODUCT - RED CELLS LEUKOREDUCED (09/01/2017 9:35 AM) + + + + | Component | Value | Ref Range | + + + + | PRODUCT DESCRIPTION | -1 RED BLOOD CELL ADENINE-SALINE ADDED | | | | LEUKOCYTE | | + + + + | PRODUCT UNIT # | [id number] | | + + + + | UNIT ABO | O | | + + + + | UNIT RH | POS | | + + + + | STATUS OF UNIT | Returned to Blood Bank | | + + + + | EXPIRATION DATE | [id number] | | + + + + | BLOOD TYPE BARCODE | 5100 | | + + + + | BLOOD PRODUCT CODE | [id number] | | + + + + + + + | Specimen | Performing Laboratory | + + + | | [facility], TRANSFUSION MEDICINE [address] | | | [place] [address] | + + + PRODUCT - RED CELLS LEUKOREDUCED (09/01/2017 9:35 AM) + + + + | Component | Value | Ref Range | + + + + | PRODUCT DESCRIPTION | -1 RED BLOOD CELL ADENINE-SALINE ADDED | | | | LEUKOCYTE | | + + + + | PRODUCT UNIT # | [id number] | | + + + + | UNIT ABO | O | | + + + + | UNIT RH | POS | | + + + + | STATUS OF UNIT | Presumed Transfused | | + + + + | EXPIRATION DATE | [id number] | | + + + + | BLOOD TYPE BARCODE | 5100 | | + + + + | BLOOD PRODUCT CODE | [id number] | | + + + + + + + | Specimen | Performing Laboratory | + + + | | [facility], TRANSFUSION MEDICINE [address] | | | [place] [address] | + + + CBC (HEMOGRAM) ONLY [...] | + + + | Blood | [facility], CORE [address] [place] [address] | | | [place] [address] | + + + RENAL FUNCTION SET [...] | >60 | >60 mL/min | | SURINAMESE | | | + + + + | EGFR NON | >60 | >60 mL/min | | -SURINAMESE | | | + + + + [...] | + + + | Blood | [facility], [facility] [address] [facility] | | | [place] [address] | + + + + + [...] | | ------ CBC (HEMOGRAM) | | ONLY[[id number]] Abnormal Final | | result Please view results for these tests on the | | individual orders. | + + LACTATE (09/01/2017 9:35 AM) + +-------+ + | Component | Value | Ref Range | + +-------+ + | LACTATE | 2.5 | mmol/L | + +-------+ + + + + | Specimen | Performing Laboratory | + + + | Blood | [facility], CORE [address] [facility] | | | [place] [address] | + + + + + | [...] | Blood | [facility] [address] | | | [place] [address] | + + + X-RAY PORTABLE CHEST 1 VIEW (09/01/2017 9:18 AM) + + + | Specimen | Performing Laboratory | + + + | | [facility] VOICE RECOGNITION | + + + + + | Narrative | + + | EXAM: LA CHEST 1 VIEW HISTORY: Intubated COMPARISON: 08/31/17 [...] Interface - 09/02/2017 1:23 PM PDT EXAM: LA CHEST 1 | | VIEW HISTORY: IntubatedCOMPARISON: [...] Note | + + | Service Account, [employer] Res In Interface - 09/01/2017 1:40 PM [...] + + | PRODUCT UNIT # | [id number] | | + + + + | UNIT ABO | O | | + + + + | UNIT RH | POS | | + + + + | STATUS OF UNIT | Presumed Transfused | | + + + + | EXPIRATION DATE | [id number] | | + + + + | BLOOD TYPE BARCODE | 5100 | | + + + + | BLOOD PRODUCT CODE | [id number] | | + + + + + + + | Specimen | Performing Laboratory | + + + | | [facility] LABOR[facility]ORY SERVICES, TRANSFUSION MEDICINE [address] | | | [place] [address] | + + + PRODUCT - RED CELLS LEUKOREDUCED (09/01/2017 9:08 AM) + + + + | Component | Value | Ref Range | + + + + | PRODUCT DESCRIPTION | -1 RED BLOOD CELL ADENINE-SALINE ADDED | | | | LEUKOCYTE | | + + + + | PRODUCT UNIT # | [id number] | | + + + + | UNIT ABO | O | | + + + + | UNIT RH | POS | | + + + + | STATUS OF UNIT | Presumed Transfused | | + + + + | EXPIRATION DATE | [id number] | | + + + + | BLOOD TYPE BARCODE | 5100 | | + + + + | BLOOD PRODUCT CODE | [id number] | | + + + + + + + | Specimen | Performing Laboratory | + + + | | [facility] LABOR[facility] SERVICES, TRANSFUSION MEDICINE [address] [facility] | | | [place] [address] | + + + PRODUCT - RED CELLS LEUKOREDUCED (09/01/2017 9:08 AM) + + + + | Component | Value | Ref Range | + + + + | PRODUCT DESCRIPTION | -1 RED BLOOD CELL ADENINE-SALINE ADDED | | | | LEUKOCYTE | | + + + + | PRODUCT UNIT # | [id number] | | + + + + | UNIT ABO | O | | + + + + | UNIT RH | POS | | + + + + | STATUS OF UNIT | Presumed Transfused | | + + + + | EXPIRATION DATE | [id number] | | + + + + | BLOOD TYPE BARCODE | 5100 | | + + + + | BLOOD PRODUCT CODE | [id number] | | + + + + + + + | Specimen | Performing Laboratory | + + + | | [facility] LABORATORY SERVICES, TRANSFUSION MEDICINE [address] [place] [address] | | | [place] [address] | + + + PRODUCT - RED CELLS LEUKOREDUCED (09/01/2017 9:08 AM) + + + + | Component | Value | Ref Range | + + + + | PRODUCT DESCRIPTION | -1 RED BLOOD CELL ADENINE-SALINE ADDED | | | | LEUKOCYTE | | + + + + | PRODUCT UNIT # | [id number] | | + + + + | UNIT ABO | O | | + + + + | UNIT RH | POS | | + + + + | STATUS OF UNIT | Presumed Transfused | | + + + + | EXPIRATION DATE | [id number] | | + + + + | BLOOD TYPE BARCODE | 5100 | | + + + + | BLOOD PRODUCT CODE | [id number] | | + + + + + + + | Specimen | Performing Laboratory | + + + | | [facility] LABORATORY SERVICES, TRANSFUSION MEDICINE [address] | | | [place] [address] | + + + PRODUCT - FRESH FROZEN PLASMA (09/01/2017 9:08 AM) + + + + | Component | Value | Ref Range | + + + + | PRODUCT DESCRIPTION | PLASMA THAWED | | + + + + | PRODUCT UNIT # | [id number] | | + + + + | UNIT ABO | B | | + + + + | UNIT RH | POS | | + + + + | STATUS OF UNIT | Presumed Transfused | | + + + + | EXPIRATION DATE | [id number] | | + + + + | BLOOD TYPE BARCODE | 7300 | | + + + + | BLOOD PRODUCT CODE | [id number] | | + + + + + + + | Specimen | Performing Laboratory | + + + | | [facility] LABORATORY SERVICES, TRANSFUSION MEDICINE [address] [facility] | | | [place] [facility] [address] | + + + PRODUCT - FRESH FROZEN PLASMA (09/01/2017 9:08 AM) + + + + | Component | Value | Ref Range | + + + + | PRODUCT DESCRIPTION | PLASMA THAWED | | + + + + | PRODUCT UNIT # | [id number] | | + + + + | UNIT ABO | B | | + + + + | UNIT RH | POS | | + + + + | STATUS OF UNIT | Presumed Transfused | | + + + + | EXPIRATION DATE | [id number] | | + + + + | BLOOD TYPE BARCODE | 7300 | | + + + + | BLOOD PRODUCT CODE | [id number] | | + + + + + + + | Specimen | Performing Laboratory | + + + | | [facility] LABORATORY SERVICES, TRANSFUSION MEDICINE [address] [facility] | | | [place] [address] | + + + PRODUCT - FRESH FROZEN PLASMA (09/01/2017 9:08 AM) + + + + | Component | Value | Ref Range | + + + + | PRODUCT DESCRIPTION | PLASMA THAWED | | + + + + | PRODUCT UNIT # | [id number] | | + + + + | UNIT ABO | B | | + + + + | UNIT RH | POS | | + + + + | STATUS OF UNIT | Presumed Transfused | | + + + + | EXPIRATION DATE | [id number] | | + + + + | BLOOD TYPE BARCODE | 7300 | | + + + + | BLOOD PRODUCT CODE | [id number] | | + + + + + + + | Specimen | Performing Laboratory | + + + | | [facility] SERVICES, TRANSFUSION MEDICINE [address] [facility] | | | [place] [facility] [address] | + + + PRODUCT - FRESH FROZEN PLASMA (09/01/2017 9:08 AM) + + + + | Component | Value | Ref Range | + + + + | PRODUCT DESCRIPTION | THAWED APHERESIS PLASMA | | + + + + | PRODUCT UNIT # | [id number] | | + + + + | UNIT ABO | B | | + + + + | UNIT RH | POS | | + + + + | STATUS OF UNIT | Presumed Transfused | | + + + + | EXPIRATION DATE | [id number] | | + + + + | BLOOD TYPE BARCODE | 7300 | | + + + + | BLOOD PRODUCT CODE | [id number] | | + + + + + + + | Specimen | Performing Laboratory | + + + | | [facility] LABORATORY SERVICES, TRANSFUSION MEDICINE [address] [place] [address] | | | [place] [address] | + + + CT HEAD WO CONTRAST (09/01/2017 8:42 AM) + + + | Specimen | Performing Laboratory | + + + | | [facility] RADIOLOGY VOICE RECOGNITION | + + + [...] + + | PRODUCT UNIT # | [id number] | | + + + + | UNIT ABO | O | | + + + + | UNIT RH | POS | | + + + + | STATUS OF UNIT | Presumed Transfused | | + + + + | EXPIRATION DATE | [id number] | | + + + + | BLOOD TYPE BARCODE | 5100 | | + + + + | BLOOD PRODUCT CODE | [id number] | | + + + + + + + | Specimen | Performing Laboratory | + + + | | [facility] MEDICINE [address] [place] [address] | | | [place] [address] | + + + LACTATE (09/01/2017 5:29 AM) + +-------+ + | Component | Value | Ref Range | + +-------+ + | LACTATE | 1.2 | mmol/L | + +-------+ + + + + | Specimen | Performing Laboratory | + + + | Blood | [facility], CORE [address] [facility] | | | [place] [address] | + + + + + | [...] | + + + | Blood | [facility] LABORATORY SERVICES, CORE [address] [facility] | | | [place] [address] | + + + MRI SPINE CERVICAL/THORACIC WO CONTRAST (09/01/2017 3:53 AM) + + + | Specimen | Performing Laboratory | + + + | | [facility] RADIOLOGY VOICE RECOGNITION | + + + [...] | | injured. Discussed with trauma ICU international exchange coordinator by [...] trauma ICU international exchange coordinator by Dr. Ynag at 4:38 AM. | | | | [...] | >60 | >60 mL/min | | SURINAMESE | | | + +---------+ + | EGFR NON | >60 | >60 mL/min | | -SURINAMESE | | | + +---------+ + | [...] | + + + | Blood | [facility] LABORATORY SERVICES, CORE [address] [place] [address] | | | [place] [address] | + + + + + | [...] | + + + | Blood | [facility] LABORATORY SERVICES, CORE [address] [place] [address] | | | [place] [address] | + + + + + | [...] | + + + | Blood | [facility]ORAT[facility] SERVICES, CORE [address] [facility] | | | [place] [address] | + + + LACTATE (09/01/2017 1:32 AM) + +-------+ + | Component | Value | Ref Range | + +-------+ + | LACTATE | 1.4 | mmol/L | + +-------+ + + + + | Specimen | Performing Laboratory | + + + | Blood | [facility], CORE [address] [facility] | | | [place] [address] | + + + + + | [...] | | ------ CBC (HEMOGRAM) | | ONLY[[id number]] Abnormal Final | | result Please view [...] pleural spaced was performed. A 32 size Prydeinig chest tube was placed into the | [...] + + + | | [facility] [place], [facility] TESTS [address] | | | [place] [address] | + + + + + | [...] | + + + | Blood | [facility] LABORATORY SERVICES, CORE [address] [facility] | | | [place] [address] | + + + LACTATE (08/31/2017 9:19 PM) + +-------+ + | Component | Value | Ref Range | + +-------+ + | LACTATE | 2.2 | mmol/L | + +-------+ + + + + | Specimen | Performing Laboratory | + + + | Blood | [facility], CORE [address] [place] [address] [place] | | | [place] [address] | + + + + + | [...] Laboratory | + + + | | [facility] RADIOLOGY VOICE RECOGNITION | + + + [...] Laboratory | + + + | | [facility] RADIOLOGY VOICE RECOGNITION | + + + [...] Laboratory | + + + | | [facility] RADIOLOGY VOICE RECOGNITION | + + + [...] | + + + | Blood | [facility] LABORATORY SERVICES, CORE [address] [facility] | | | [place] [address] | + + + X-RAY PORTABLE CHEST 1 VIEW (08/31/2017 7:07 PM) + + + | Specimen | Performing Laboratory | + + + | | [facility] RADIOLOGY VOICE RECOGNITION | + + + + + | Narrative | + + | STUDY: LA CHEST 1 VIEW HISTORY: Trauma COMPARISON: CT [...] Interface - 09/01/2017 1:44 PM PDT STUDY: LA CHEST 1 | | VIEWHISTORY: TraumaCOMPARISON: CT [...] | + + + | Blood | [facility]ORAT[facility] SERVICES, CORE [address] [facility] | | | [place] [address] | + + + CTA NECK W CONTRAST (08/31/2017 6:27 PM) + + + | Specimen | Performing Laboratory | + + + | | [facility] RADIOLOGY VOICE RECOGNITION | + + + [...] Note | + + | Service Account, [employer] Res In Interface - 08/31/2017 8:22 PM [...] Laboratory | + + + | | [facility] RADIOLOGY VOICE RECOGNITION | + + + [...] rib, nondisplaced-Left | | 1st rib fracture, mybdzrwsnqho-Pns-lpkmzcpfn left lateral 8th rib fracture-T12 fracture | [...] Laboratory | + + + | | [facility] RADIOLOGY VOICE RECOGNITION | + + + [...] | + + + | Blood | [facility] LABORATORY SERVICES, TRANSFUSION MEDICINE [address] | | | [place] [address] | + + + ABO & RH [...] | + + + | Blood | [facility] LABORAT[facility] SERVICES, TRANSFUSION MEDICINE [address] [facility] | | | [place] [address] | + + + TYPE AND SCREEN [...] | ------ ABO & RH | | TYPE[[id number]] F | | inal result ANTIBODY | | SCREEN[[id number]] Fin | | al result Please view [...] | + + + | Blood | [facility] LABORATORY SERVICES, TRANSFUSION MEDICINE [address] [facility] | | | [place] [address] | + + + THROMBELASTOGRAPH, POC (08/31/2017 [...] | + + + | Blood | [facility], [facility] [address] | | | [place] [address] | + + + + + | [...] | + + + | Blood | [facility] [place], [facility] TESTS [address] | | | [place] [address] | + + + + + | [...] [address] | | | [place] [address] | + + + ED BG-LAC,POC (08/31/2017 [...] TESTS [address] | | | [place] [address] | + + + PRODUCT - RED CELLS LEUKOREDUCED (08/31/2017 5:06 PM) + + + + | Component | Value | Ref Range | + + + + | PRODUCT DESCRIPTION | -1 RED BLOOD CELL ADENINE-SALINE ADDED | | | | LEUKOCYTE | | + + + + | PRODUCT UNIT # | [id number] | | + + + + | UNIT ABO | O | | + + + + | UNIT RH | POS | | + + + + | STATUS OF UNIT | Returned to Blood Bank | | + + + + | EXPIRATION DATE | [id number] | | + + + + | BLOOD TYPE BARCODE | 5100 | | + + + + | BLOOD PRODUCT CODE | [id number] | | + + + + + + + | Specimen | Performing Laboratory | + + + | | [facility] LABORAT[facility] SERVICES, TRANSFUSION MEDICINE [address] [facility] | | | [place] [address] | + + + PRODUCT - RED CELLS LEUKOREDUCED (08/31/2017 5:06 PM) + + + + | Component | Value | Ref Range | + + + + | PRODUCT DESCRIPTION | -1 RED BLOOD CELL ADENINE-SALINE ADDED | | | | LEUKOCYTE | | + + + + | PRODUCT UNIT # | [id number] | | + + + + | UNIT ABO | O | | + + + + | UNIT RH | POS | | + + + + | STATUS OF UNIT | Presumed Transfused | | + + + + | EXPIRATION DATE | [id number] | | + + + + | BLOOD TYPE BARCODE | 5100 | | + + + + | BLOOD PRODUCT CODE | [id number] | | + + + + + + + | Specimen | Performing Laboratory | + + + | | [facility] LABORATORY SERVICES, TRANSFUSION MEDICINE [address] | | | [place] [address] | + + + PRODUCT - RED CELLS LEUKOREDUCED (08/31/2017 5:06 PM) + + + + | Component | Value | Ref Range | + + + + | PRODUCT DESCRIPTION | -1 RED BLOOD CELL ADENINE-SALINE ADDED | | | | LEUKOCYTE | | + + + + | PRODUCT UNIT # | [id number] | | + + + + | UNIT ABO | O | | + + + + | UNIT RH | POS | | + + + + | STATUS OF UNIT | Returned to Blood Bank | | + + + + | EXPIRATION DATE | [id number] | | + + + + | BLOOD TYPE BARCODE | 5100 | | + + + + | BLOOD PRODUCT CODE | [id number] | | + + + + + + + | Specimen | Performing Laboratory | + + + | | [facility] LABORATORY SERVICES, TRANSFUSION MEDICINE [address] [facility] | | | [place] [address] | + + + PRODUCT - RED CELLS LEUKOREDUCED (08/31/2017 5:06 PM) + + + + | Component | Value | Ref Range | + + + + | PRODUCT DESCRIPTION | -1 RED BLOOD CELL ADENINE-SALINE ADDED | | | | LEUKOCYTE | | + + + + | PRODUCT UNIT # | [id number] | | + + + + | UNIT ABO | O | | + + + + | UNIT RH | POS | | + + + + | STATUS OF UNIT | Presumed Transfused | | + + + + | EXPIRATION DATE | [id number] | | + + + + | BLOOD TYPE BARCODE | 5100 | | + + + + | BLOOD PRODUCT CODE | [id number] | | + + + + + + + | Specimen | Performing Laboratory | + + + | | [facility] LABORATORY SERVICES, TRANSFUSION MEDICINE [address] | | | [place] [address] | + + + PRODUCT - FRESH FROZEN PLASMA (08/31/2017 5:05 PM) + + + + | Component | Value | Ref Range | + + + + | PRODUCT DESCRIPTION | LIQUID PLASMA, IRRADIATED | | + + + + | PRODUCT UNIT # | [id number] | | + + + + | UNIT ABO | A | | + + + + | UNIT RH | POS | | + + + + | STATUS OF UNIT | Presumed Transfused | | + + + + | EXPIRATION DATE | [id number] | | + + + + | BLOOD TYPE BARCODE | 6200 | | + + + + | BLOOD PRODUCT CODE | [id number] | | + + + + + + + | Specimen | Performing Laboratory | + + + | | [facility] LABORATORY SERVICES, TRANSFUSION MEDICINE [address] | | | [place] [address] | + + + PRODUCT - FRESH FROZEN PLASMA (08/31/2017 5:05 PM) + + + + | Component | Value | Ref Range | + + + + | PRODUCT DESCRIPTION | LIQUID PLASMA, IRRADIATED | | + + + + | PRODUCT UNIT # | [id number] | | + + + + | UNIT ABO | A | | + + + + | UNIT RH | POS | | + + + + | STATUS OF UNIT | Presumed Transfused | | + + + + | EXPIRATION DATE | [id number] | | + + + + | BLOOD TYPE BARCODE | 6200 | | + + + + | BLOOD PRODUCT CODE | [id number] | | + + + + + + + | Specimen | Performing Laboratory | + + + | | [facility] LABORATORY SERVICES, TRANSFUSION MEDICINE [address] [facility] | | | [place] [address] | + + + PRODUCT - FRESH FROZEN PLASMA (08/31/2017 5:05 PM) + + + + | Component | Value | Ref Range | + + + + | PRODUCT DESCRIPTION | LIQUID PLASMA, IRRADIATED | | + + + + | PRODUCT UNIT # | [id number] | | + + + + | UNIT ABO | A | | + + + + | UNIT RH | POS | | + + + + | STATUS OF UNIT | Returned to Blood Bank | | + + + + | EXPIRATION DATE | [id number] | | + + + + | BLOOD TYPE BARCODE | 6200 | | + + + + | BLOOD PRODUCT CODE | [id number] | | + + + + + + + | Specimen | Performing Laboratory | + + + | | [facility] LABORATORY SERVICES, TRANSFUSION MEDICINE [address] [facility] | | | [place] [address] | + + + PRODUCT - FRESH FROZEN PLASMA (08/31/2017 5:05 PM) + + + + | Component | Value | Ref Range | + + + + | PRODUCT DESCRIPTION | LIQUID PLASMA, IRRADIATED | | + + + + | PRODUCT UNIT # | [id number] | | + + + + | UNIT ABO | A | | + + + + | UNIT RH | POS | | + + + + | STATUS OF UNIT | Returned to Blood Bank | | + + + + | EXPIRATION DATE | [id number] | | + + + + | BLOOD TYPE BARCODE | 6200 | | + + + + | BLOOD PRODUCT CODE | [id number] | | + + + + + + + | Specimen | Performing Laboratory | + + + | | [facility] LABORATORY SERVICES, TRANSFUSION MEDICINE [address] [facility] | | | [place] [address] | + + + CBC (HEMOGRAM) ONLY [...] | + + + | Blood | [facility] LABORATORY SERVICES, CORE [address] | | | [place] [address] | + + + BASIC METABOLIC SET [...] | >60 | >60 mL/min | | SURINAMESE | | | + +---------+ + | EGFR NON | >60 | >60 mL/min | | -SURINAMESE | | | + +---------+ + | [...] | + + + | Blood | [facility] LABORATORY [facility], [facility] [address] | | | [place] [address] | + + + + + | [...] | + + + | Blood | [facility] LABORATORY SERVICES, CORE [address] [facility] | | | [place] [address] | + + + + + | [...] | | ------ CBC (HEMOGRAM) | | ONLY[[id number]] Abnormal Final | | result Please view [...] | + + + | Blood | [facility], CORE [address] [place] [address] | | | [place] [address] | + + + PHOSPHORUS, PLASMA (08/31/2017 4:50 PM) + +-------+ + | Component | Value | Ref Range | + +-------+ + | PHOSPHORUS, PLASMA | 4.0 | 2.4 - 4.7 mg/dL | | (LAB) | | | + +-------+ + + + + | Specimen | Performing Laboratory | + + + | Blood | [facility] LABORATORY SERVICES, CORE [address] [place] [address] | | | [place], [place] [address] | + + + MAGNESIUM, PLASMA (08/31/2017 4:50 PM) + +---------+ + | Component | Value | Ref Range | + +---------+ + | MAGNESIUM,PLASMA | 1.5 (L) | 1.6 - 2.6 mg/dL | + +---------+ + + + + | Specimen | Performing Laboratory | + + + | Blood | [facility], CORE [address] | | | [place], [place] [address] | + + + + + | [...]
--- OUTSIDE RECORDS SUMMARY | ~2017-12-10 | XMS | Encounter Summary ---
Demographics + + + | Address | [address] | | | [place] [address] | + + + | Home Phone [...] | Author | [facility] [employer] [facility] | + + + | Organization | [facility] [employer] [facility] | + [...] Team Providers + +------+ + | Care Seed Trucker Name | Role | Phone | + [...] Anesthesia | 6A Intra Op [facility] | Rg Arriola, | | | 2017 | Event | [facility] | SURVEILLANCE DUAL RATE OFFICER [address] [facility] | | | | | Admitting Desk | [facility] | | | | | Located on the 9 | [place], [place] | | | | | floor [address] [place] [address] | [address] | | | | | [facility] | [phone] | | | | | [place], [place] | | | | | | [address] | | | +--------+ + + + + Anesthesia Record + + + + + | Procedure Name | Responsible | Anesthesia Start | Anesthesia Stop Time | | | Anesthesiologist | Time | | + + + + + | GASTROSTOMY TUBE | Juve R Tiara, | 10/10/17 0720 | 10/10/17 1244 | | PLACEMENT (N/A | MD | | | [...] +----+---+ + + | | 0 | Pause | | | | 8 | | | | | 3 | | | | | 4 | | | +----+---+ + + | | 0 | Incision | | | | 8 | | | | | 3 | | | | | 5 | | | +----+---+ + + | | 1 | Pause | | | | 0 | | [...] Left; Posterior, | 09/07/171999 by | 10/13/17 013 by | | on | Lateral; chest [...] centrally accessed); | | | | | [id number]; 10/22/17; 1542; | | | | | [...] | RN; Small-bore feeding tube; | Camille Harris RN | Abeba Mack RN | | [...] 10/11/17 1635 by | | al | Danny Rees; 16 Fr.; 10 mL; | Katrin Watson RN | Pallavi Kumar RN | | Cale | 10/11/17; 1635 | | | | er | | | | +--------+ + + + | Incisi | 10/10/17; 0836; Nay Hernandez MD; | 10/10/17 08 by [...] on fileas of this encounter Results WALDO ETT (10/10/2017 3:20 PM) + + | Narrative | + + | Rg Arriola CRNA 10/10/2017 8:21 AM Procedure Reason for Intubation: | | For surgical procedure, Location Performed: [place] , Patient was preoxygenated Mask | | Ventilation Grade 0 - Ventilation by mask not attempted Intubation Atraumatic | | laryngoscopy: Atraumatic Laryngoscopy, Laryngoscopic view: Grade I, Fiberoptics used: | | Glidescope , Number of Attempts: 1, Positive for EtCO2: Yes, Breath sounds: Bilateral | | and equal ETT Ett Adult: Single-lumen cuffed ETT Size: 7.5 ETT secured | | with: adhesive tape Depth at Lip: 23 Cm Narrative Attending physically | | present Pt in Ccollar. Midline stabalization maintained throughout. Cricoid | | pressure. Hypopharynx suctioned. Easy intubation with glidescope | + + in this encounter Visit Diagnoses Not on filein this encounter Administered Medications + +--------+ + +------+------+ | Medication Order | MAR | Action | Dose | Rate | Site | | | Action | Date | | | | + +--------+ + +------+------+ | cefOXitin (MEFOXIN) injection | Given | | 2,000 mg | | | | intravenous, INTRAPROCEDURE PRN, | | 8 10:28 | | | | | Starting Sho 10/10/17 at 1028, | | PDT | | | | | Until Sho 10/10/17 at 1244 | | | | | | + +--------+ + +------+------+ +---+---+ | | | +---+---+ + +-------+ +-------+---+---+ | ePHEDrine injection | Given | | 15 mg | | | | intravenous, INTRAPROCEDURE PRN, | | 8 08:04 | | | | | Starting Sho 10/10/17 at 0804, | | PDT | | | | | Until Sho 10/10/17 at 1244 | | | | | | + +-------+ +-------+---+---+ +-------+ +-------+---+---+ | Given | | 10 mg | | | | | 8 08:22 | | | | | | PDT | | | | +-------+ +-------+---+---+ +---+---+ | | | +---+---+ + +-------+ +--------+---+---+ | fentaNYL citrate (PF) | Given | | 50 mcg | | | | (SUBLIMAZE) injection | | 8 09:47 | | | | | INTRAPROCEDURE PRN, Starting Sho | | PDT | | | | | 10/10/17 at 0755, Until Sho | | | | | | | 10/10/17 at 1244 | | | | | | + +-------+ +--------+---+---+ +-------+ +--------+---+---+ | Given | | 50 mcg | | | | | 8 10:17 | | | | | | PDT | | | | +-------+ +--------+---+---+ | Given | | 50 mcg | | | | | 8 10:29 | | | | | | PDT | | | | +-------+ +--------+---+---+ +---+---+ | | | +---+---+ + +---------+ +---+---+---+ | lactated Ringers IV | New Bag | | | | | | INTRAPROCEDURE CONTINUOUS PRN, | | 8 07:45 | | | | | Starting Sho 10/10/17 at 0745, | | PDT | | | | | Until Sho 10/10/17 at 1244 | | | | | | + +---------+ +---+---+---+ +---------+ +---+---+---+ | New Bag | | | | | | | 8 09:40 | | | | | | PDT | | | | +---------+ +---+---+---+ | New Bag | | | | | | | 8 11:15 | | | | | | PDT | | | | +---------+ +---+---+---+ +---+---+ | | | +---+---+ + +-------+ +---------+---+---+ | PHENYLEPHrine 100 mcg/mL IV | Given | 6/14/201 | 100 mcg | | | | syringe INTRAPROCEDURE PRN, | | 8 08:42 | | | | | Starting Sho 10/10/17 at 0822, | | PDT | | | | | Until Sho 10/10/17 at 1244 | | | | | | + +-------+ +---------+---+---+ +-------+ +---------+---+---+ | Given | | 100 mcg | | | | | 8 10:36 | | | | | | PDT | | | | +-------+ +---------+---+---+ | Given | | 100 mcg | | | | | 8 10:56 | | | | | | PDT | | | | +-------+ +---------+---+---+ +---+---+ | | | +---+---+ + +-------+ +--------+---+---+ | propofol INTRAPROCEDURE PRN, | Given | | 100 mg | | | | Starting Sho 10/10/17 at 0757, | | 8 07:57 | | | | | Until Sho 10/10/17 at 1244 | | PDT | | | | + +-------+ +--------+---+---+ +---+---+ | | | +---+---+ + +-------+ +-------+---+---+ | rocuronium (ZEMURON) injection | Given | | 60 mg | | | | INTRAPROCEDURE PRN, Starting Sho | | 8 07:57 | | | | | 10/10/17 at 0757, Until Sho | | PDT | | | | | 10/10/17 at 1244 | | | | | | + +-------+ +-------+---+---+ +-------+ +-------+---+---+ | Given | | 10 mg | | | | | 8 08:34 | | | | | | PDT | | | | +-------+ +-------+---+---+ +---+---+ | | | +---+---+ in this encounter"
--- OUTSIDE RECORDS SUMMARY | ~2017-12-10 | XMS | Encounter Summary ---
Demographics + + + | Address | [address] | | | [place] [address] | + + + | Home Phone [...] + | Author | [facility] | + + + | Organization | [facility] [employer] [facility] | [...] Team Providers + +------+ + | Care Literacy Coach Name | Role | Phone | + [...] | | | | | | 14A/[facility] | | | | | | [facility], | | | | | | [place] [address] | | | | | | [phone] | | | +--------+ + + + [...]
--- OUTSIDE RECORDS SUMMARY | ~2017-12-10 | XMS | Encounter Summary ---
Demographics + + + | Address | [address] | | | [place] [address] | + + + | Home Phone [...] | Author | [facility] [employer] [facility] | + + + | Organization | [facility] [employer] [facility] | [...] Providers + +------+ + | Care Operations Supervisor Name | Role | Phone | [...] | | | | | | 14A/[facility]HS8[facility] | | | | | | [facility], | | | | | | [place] [address] | | | | | | [phone] | | | +--------+ + + + [...]
--- OUTSIDE RECORDS SUMMARY | ~2017-12-10 | XMS | Encounter Summary ---
Demographics + + + | Address | [address] | | | [place] [address] | + + + | Home Phone [...] | Author | [facility] [employer] [facility] | + + + | Organization | [facility] [employer] [facility] | + + + | Address | Unknown | + + + | Phone | Unavailable | + + + Support + + +---------+ + | Name | Relationship | Address | Phone | + + +---------+ + | Kaylie Baig | ECON | Unknown | | + + +---------+ + Care Team Providers + +------+ + | Care Preform Machine Operator Name | Role | Phone [...] | | | 2017 | Event | [facility] | CONCRETE LABORER [facility] [facility] | | | | | Admitting Desk | [facility] | | | | | Located on the 9 | [place], [place] | | | | | floor [address] [place] [address] | [address] | | | | | [facility] | [phone] | | | | | [place], [place] | | | | | | [address] | | | +--------+ + + + [...] | | | | Lumen | Yes; [id number]; 11/09/17; 1154; | | | | | [...]
--- OUTSIDE RECORDS SUMMARY | ~2017-12-10 | XMS | Encounter Summary ---
Demographics + + + | Address | [address] | | | [place] [address] | + + + | Home Phone [...] Author | [facility] [employer] [facility] | + + + | Organization | [facility] [employer] [facility] | + + + | Address | Unknown | + + + | Phone | Unavailable | + + + Support + + +---------+ + | Name | Relationship | Address | Phone | + + +---------+ + | Kaylie Baig | ECON | Unknown | | + + +---------+ + Care Team Providers + +------+ + | Care Cadence Specialists Name | Role | Phone | + [...] | | | | | floor [address] [facility] | | | | | | [facility] | | | | | | [place], [place] | | | | | | [address] | | | +--------+ + + + [...]
--- OUTSIDE RECORDS SUMMARY | ~2017-12-10 | XMS | Clinical Summary ---
Demographics + + + | Address | [address] | | | [place] [address] | + + + | Home Phone [...] Team Providers + +------+ + | Care Hospice Rn Name | Role | Phone | + +------+ + | No Pcp Per Patient | PP | Unavailable | + +------+ + Source Comments SELENA is fully live on both [facility] and [facility] [employer] [facility] Allergies No Known Allergies Current Medications + [...] | | 2017 | Event | | HAT CONE INSPECTOR | | +--------+ + + + + | 10/31/ | Brake Engineer | | Magdiel Stock MD | Skull [...] | 10/12/ | Surgery | | Chaz Munoz | EXPLORATORY | | 2017 | | | MD | MARTIN, EGD | +--------+ + + + + | 10/12/ | Procedure | | | | | 2017 | Pass | | | | +--------+ + + + + | 10/10/ | Anesthesia | | Rg Arriola, | | | 2017 | Event | | HAT CONE INSPECTOR | | +--------+ + + + + [...] + + + + | 09/15/ | Brake Engineer | | Dallin Bourgeois, | Other closed [...] | | nutrition- | | | NPO, BUNDLE BREAKER | | | evaluating | | | [...] | y- Must | | | wear HIGHWAY LANDSCAPE ARCHITECT | | | when OOB, | | | ok for | | | C-collar | | | only when | | | in bed- 12 | | | week collar | | | period up | | | on 11/23, | | | Neurosurger | | | y | | | documented | | | C | | | collar/HIGHWAY LANDSCAPE ARCHITECT | | | weaning | | | [...] | | | health | | | PT/OT/BUNDLE BREAKER, | | | which will | | [...] | | | (503) | | | [phone]. | | | if you have | [...] | | | Physician | | | Felled Seam Operator | | | working | | | [...] | | Home Health | | | FIRE TECHNOLOGY INSTRUCTOR | | | Evaluate | | | [...] | | [address] | | | [facility] | | | [place] | | | [address] | | | [phone] | | | Primary | | | [...] | | | tical | | | [id number] | | | [address] | | | [address] | | | [place] | | | Road[place] | | | [place] [address] | | | | | | [phone] [...] | | | | | | | [id number]: Qty: 11 | | | | | [...] | | | | | | | [id number]: Qty: | | | | | | [...] Laboratory | + + + | | [facility] [address] [place] [address] | | | [place] [address] | + + + RENAL FUNCTION SET [...] | >60 | >60 mL/min | | DJIBOUTIAN | | | + + + + | EGFR NON | >60 | >60 mL/min | | -DJIBOUTIAN | | | + + + + [...] | + + + | Blood | [facility], CORE [address] | | | [place] [address] | + + + + + | [...] | + + + | Blood | [facility], CORE [address] [facility] | | | [place], [place] [address] | + + + + + | [...] | + + + | Blood | [facility], CORE [address] [facility] | | | [place] [address] | + + + VAS LAB VENOUS DUPLEX LOWER EXTREMITY BILAT COMP (12/03/2017 11:26 AM)Only the most recent of 13 results within the time period is included. + + + | Specimen | Performing Laboratory | + + + | | [facility] RADIOLOG[facility] VAS US | + + [...] Note | + + | Service Account, OOgave Res In Interface - 12/03/2017 4:56 PM [...] | + + + | Blood | [facility] [address] [facility] [address] | | | [place] [address] | + + + + + | [...] | | ------ CBC (HEMOGRAM) | | ONLY[[id number]] Abnormal Final | | result Please view [...] now presented. | | | |Final signature: Edlemira Parsons MD 12/03/2017 10:29 AM | |Preliminary: [...] | + + + | Blood | [facility] [place] [address] [place], [place] | | | [address] | + + + C-REACTIVE PROTEIN (12/02/2017 5:35 AM)Only the most recent of 7 results within the time rei [place] is included. + +-------+ + | Component | Value | Ref Range | + +-------+ + | C-REACTIVE PROTEIN | 6.6 | <10.0 mg/L | + +-------+ + + + + | Specimen | Performing Laboratory | + + + | Blood | [facility], CORE [address] [facility] | | | [place] [address] | + + + + + | [...] | + + + | Blood | [facility], CORE [address] [facility] | | | [place] [address] | + + + TRIGLYCERIDES, PLASMA (12/02/2017 5:35 AM)Only the most recent of 7 results within the period is included. + +-------+ + | Component | Value | Ref Range | + +-------+ + | TRIGLYCERIDES | 101 | <150 mg/dL | + +-------+ + + + + | Specimen | Performing Laboratory | + + + | Blood | [facility], CORE [address] [facility] | | | [place] [address] | + + + + + | [...] | + + + | Urine | [facility] [address] [place], [place] | | | [address] | + + + CT CHEST, ABDOMEN AND PELVIS W IV CONTRAST (11/11/2017 6:57 PM)Only the most recent of 2 r esults within the time period is included. + + + | Specimen | Performing Laboratory | + + + | | [facility] VOICE RECOGNITION 2 | + + [...] | + + + | Blood | [facility], CORE [address] [facility] | | | [place] [address] | + + + PROTEIN ELECTROPHORESIS, SERUM, [...] + + + | Blood | [facility] [address] [place] [address] | | | [address] | + + + CT HEAD WO [...] + + | PRODUCT UNIT # | [id number] | | + + + + | UNIT ABO | O | | + + + + | UNIT RH | POS | | + + + + | STATUS OF UNIT | Returned to Blood Bank | | + + + + | EXPIRATION DATE | [id number] | | + + + + | BLOOD TYPE BARCODE | 5100 | | + + + + | BLOOD PRODUCT CODE | [id number] | | + + + + + + + | Specimen | Performing Laboratory | + + + | | [facility], TRANSFUSION MEDICINE [address] [facility] | | | [place] [address] | + + + OPERATION RECORD (11/06/2017 12:27 AM) + + | Procedure Note | + + | Magdiel Stock MD - 11/06/2017 12:27 AM PDT Date of Service: 11/05/2017 Attending | | Surgeon: Magdiel Stock MD Felled Seam Operator(s): Rg Aiken MD | | Preoperative [...] head was placed in a horseshoe hogshead wrecker with his C-collar still | | attached [...] the incision down to the cranium. Once zuni | | skull was reached circumferentially around the prior incision, a #1 Charenton was used | | to subperiosteally dissect [...] note for this encounter.Sonal Nunez, | | [facility] [id number] [place], [place] | | [phone] Orina, MDJB/MODLDD: 11/05/2017 20:38:01DT: 11/06/2017 | | 00:27:33Job #: [id number] | |HATTIE/MODL | | | | | | /[id number] | + + CAPILLARY BLOOD GLUCOSE (NO [...] TESTS [address] | | | [place] [address] | + + + WALDO ISLAS (11/05/2017 [...] | + + + | Blood | [facility], CORE [address] [facility] [address] | | | [place] [address] | + + + + + | [...] | + + + | Blood | [facility], TRANSFUSION MEDICINE [address] [facility] | | | [place] [address] | + + + TYPE AND SCREEN [...] | ------ ABO & RH | | TYPE[[id number]] F | | inal result ANTIBODY | | SCREEN[[id number]] Fin | | al result Please view [...] | + + + | Blood | [facility], TRANSFUSION MEDICINE [address] [facility] | | | [place] [address] | + + + CT STEREOTACTIC HEAD WO CONTRAST (10/31/2017 5:58 PM) + + + | Specimen | Performing Laboratory | + + + | | [facility] RAD[facility] VOICE RECOGNITION 2 | + [...] Laboratory | + + + | | [facility] RAD[facility] VOICE RECOGNITION 2 | + [...] Laboratory | + + + | | [facility] VOICE RECOGNITION 2 | + + + + + | Narrative | + + | EXAM: IA CHEST PICC [...] | | verifies correct patient, procedure, equipment, medical support assistant and site/side marked as | | required. [...] Brachial | | vein. Catheter lot number: [id number] with a length of 55 cm was [...] | >60 | >60 mL/min | | DJIBOUTIAN | | | + + + + | EGFR NON | >60 | >60 mL/min | | -DJIBOUTIAN | | | + + + + [...] | + + + | Blood | [facility], CORE [address] [facility] | | | [place] [address] | + + + + + | [...] | + + + | Blood | [facility], CORE [address] [facility] | | | [place] [address] | + + + PHOSPHORUS, PLASMA (10/24/2017 4:45 PM) + +-------+ + | Component | Value | Ref Range | + +-------+ + | PHOSPHORUS, PLASMA | 3.2 | 2.4 - 4.7 mg/dL | | (LAB) | | | + +-------+ + + + + | Specimen | Performing Laboratory | + + + | Blood | [facility], CORE [address] [facility] | | | [place] [address] | + + + AST, PLASMA (10/24/2017 4:45 PM) + +---------+ + | Component | Value | Ref Range | + +---------+ + | AST(SGOT) | 14 | <=41 U/L | + +---------+ + | AST CMNT | No Hemo | | + +---------+ + + + + | Specimen | Performing Laboratory | + + + | Blood | [facility], CORE [address] [facility] | | | [facility] [address] | + + + ALBUMIN, PLASMA (10/24/2017 4:45 PM) + +---------+ + | Component | Value | Ref Range | + +---------+ + | ALBUMIN, PLASMA | 2.6 (L) | 3.5 - 4.7 g/dL | | (LAB) | | | + +---------+ + + + + | Specimen | Performing Laboratory | + + + | Blood | [facility], CORE [address] [place] [address] | | | [place] [address] | + + + BILIRUBIN DIRECT (10/24/2017 4:45 PM) + +---------+ + | Component | Value | Ref Range | + +---------+ + | BILIRUBIN DIRECT | 0.1 | 0.0 - 0.3 mg/dL | + +---------+ + | BRET SHIPLEY | No Hemo | | + +---------+ + + + + | Specimen | Performing Laboratory | + + + | Blood | [facility], CORE [address] [place] [address] | | | [place], [place] [address] | + + + ALKALINE PHOSPHATASE, PLASMA (10/24/2017 4:45 PM) + +---------+ + | Component | Value | Ref Range | + +---------+ + | ALK PHOS | 200 (H) | 56 - 119 U/L | + +---------+ + + + + | Specimen | Performing Laboratory | + + + | Blood | [facility], CORE [address] [facility] | | | [place] [address] | + + + BILIRUBIN TOTAL (10/24/2017 [...] | + + + | Blood | [facility], CORE [address] [place] [address] | | | [place] [address] | + + + X-RAY PORTABLE CHEST 1 VIEW (10/24/2017 3:26 PM)Only the most recent of 6 results within t he time period is included. + + + | Specimen | Performing Laboratory | + + + | | [facility] RAD[facility] VOICE RECOGNITION 2 | + + + + + | Narrative | + + | EXAM: IA CHEST 1 [...] | + + + | Blood | [facility], CORE [address] [place] [address] | | | [place] [address] | + + + + + | [...] | ------ CBC AND AUTO | | DIFF[[id number]] Abnormal Final | | result Please view results for these tests on the | | individual orders. | + + IR GASTROSTOMY TUBE EXCHANGE (10/22/2017 2:42 PM) + + + | Specimen | Performing Laboratory | + + + | | [facility] VOICE RECOGNITION | + + + + + | Narrative | + + | Procedure: Gastrostomy tube exchange Primary attending director of physiotherapy services: Shade | | Brny Goodwin Preoperative diagnosis: Malfunctioning Gastrostomy tube | | Postoperative diagnosis: Same Operations: Operation 1. Removal of existing | | Gastrostomy tube over a guide wire Operation 2. Placement of 24 Azerbaijani GABRIEL | | gastrostomy over guide wire [...] | | glide wire the new 24 Azerbaijani gastrostomy tube was inserted. The position of [...] | | Gastrostomy tube exchangePrimary attending director of physiotherapy services: Shade Goodwin | | BrynPreoperative diagnosis: Malfunctioning Gastrostomy tubePostoperative diagnosis: | | SameOperations:Operation 1. Removal of existing Gastrostomy tube over a guide | | wireOperation 2. Placement of 24 Azerbaijani GABRIEL gastrostomy over guide wireNo sedation was [...] glide wire the | | new 24 Azerbaijani gastrostomy tube was inserted. The position of [...] stiff g lide wire the new 24 Azerbaijani | |gastrostomy tube was inserted. The position [...] Laboratory | + + + | | [facility] RAD[facility] VOICE RECOGNITION 2 | + [...] collection anterior to the gastric antrum with JREONIMO drain in place. This | | raises [...] | | Attending Surgeon: Chaz Munoz MD Felled Seam Operator(s): Randell Dixon M.D., | | fellow. [...] saline. We then | | placed a 19-Azerbaijani drain deep into the abscess cavity, tracking [...] 10/12/2017 19:50:06DT: 10/12/2017 20:50:54Job #: | | [id number] | + + VANCOMYCIN, TROUGH (10/12/2017 2:48 AM) + +---------+ + | Component | Value | Ref Range | + +---------+ + | VANCOMYCIN, TROUGH | 7.2 (L) | 10.0 - 20.0 ug/mL | + +---------+ + + + + | Specimen | Performing Laboratory | + + + | Blood | [facility], CORE [address] [facility] | | | [place] [address] | + + + + + | Narrative | + + | Please draw trough just prior to administering the 0300 dose on 10/12, thanks! | + + OPERATION RECORD (10/10/2017 12:40 PM) + + | Procedure Note | + + | Magdiel Stock MD - 10/10/2017 12:40 PM PDT Date of Service: 10/10/2017 Attending | | Surgeon: Magdiel Stock MD Felled Seam Operator(s): Cecilia Hernandez, | | . Preoperative [...] the note for this encounter.Sonal Nunez MDOHSU [id number] [facility] | | [place] [phone] Orina, MDFA/MODLDD: | | 10/10/2017 11:52:15DT: 10/10/2017 12:40:41Job #: [id number] | | | | | |I was present for the critical portions of the procedure as described in the note for this encounter. | | | |Magdiel Stock MD | | | |Magdiel Stock MD | |[facility] [address] | |[address] | |[facility] | |[place] [address] | |[phone] | | | | | |Magdiel Stock MD | |FABaljeet/MODL | | | | | | /[id number] | + + X-RAY ABDOMEN 1 VIEW [...] + + | Tissue - Head | [facility] [place] [address] [address] [place], [place] | | | [address] | + + + + + | [...] + + | Swab - Head | [facility] [address] [place], [place] | | | [address] | + + + + + | [...] + + | Swab - Head | [facility] [address] [place] [address] | | | [address] | + + + + + | [...] + + | Swab - Head | [facility] [address] [place], [place] | | | [address] | + + + + + | [...] | + + + | Blood | [facility], CORE [address] | | | [place] [address] | + + + ANTIBODY IDENTIFICATION (10/09/2017 5:01 PM) + + + + | Component | Value | Ref Range | + + + + | ANTIBODY 1 | Antibody present, unable to identify | | + + + + + + + | Specimen | Performing Laboratory | + + + | Blood | [facility], TRANSFUSION MEDICINE [address] | | | [place] [address] | + + + URINE, MICROSCOPIC EXAM [...] + | Urine - Clean catch | [facility], CORE [address] | | | [place] [address] | + + + HIV-1,2 AB/HIV-1 P24 AG ALTAF (10/03/2017 3:36 PM) + + + + | Component | Value | Ref Range | + + + + | HIV-1,2 AB/HIV-1 P24 | Negative | Negative | | AG SCREEN | | | + + + + + + + | Specimen | Performing Laboratory | + + + | Blood | [facility], SPECIAL IMM + COAG [address] [facility] | | | [place] [address] | + + + + + | Narrative | + + | HIV-1 p24 Ag and HIV-1,2 Ab not detected. Test modified from original | | devulcanizer operator's approved specifications. The performance of the SENIOR RELIABILITY ENGINEER HIV Combo | | test, with or [...] is required.Performed by | | | | [facility],[address] [place] [address] | | | | [id number] ri[address].[employer], Gui | | | | MD Arcadio, Lab. Director | | | |www.[employer], Gui Ervin MD, Lab. Director | | + + + + + + + | Specimen | Performing Laboratory | + + + | Blood | [facility] [address] [facility] | | | [place] [address] | + + + TSH (10/03/2017 3:36 PM) + + + + | Component | Value | Ref Range | + + + + | TSH | 0.33 (L) | 0.46 - 5.56 mIU/L | + + + + + + + | Specimen | Performing Laboratory | + + + | Blood | [facility], CORE [address] [facility] | | | [place] [address] | + + + + + | [...] | + + + | Blood | [facility], CORE [address] [facility] | | | [place] [address] | + + + X-RAY SPINE CERVICAL 2 VIEWS (10/02/2017 10:32 PM)Only the most recent of 2 results within the time period is included. + + + | Specimen | Performing Laboratory | + + + | | [facility] RAD[facility] VOICE RECOGNITION 2 | + [...] Note | + + | Service Account, OOgave Res In Interface - 10/01/2017 2:15 PM [...] the most recent of 2 results within [facility] time period is included. + + [...] poorly cleared with dry swallows. Please see [facility] pathology report for full details | [...] Laboratory | + + + | | [facility] RAD[facility] VOICE RECOGNITION 2 | + [...] | + + + | Blood | [facility], CORE [address] | | | [place] [address] | + + + MARICHUY BHATTI TUBE - GREEN TOP (09/10/2017 2:15 PM) + + + | Specimen | Performing Laboratory | + + + | Blood | [facility], CORE [address] [facility] | | | [place] [address] | + + + LIPASE, PLASMA (09/10/2017 5:08 AM) + +-------+ + | Component | Value | Ref Range | + +-------+ + | LIPASE (LAB) | 232 | 152 - 353 U/L | + +-------+ + + + + | Specimen | Performing Laboratory | + + + | Blood | [facility], CORE [address] | | | [place] [address] | + + + AMYLASE, PLASMA (09/10/2017 5:08 AM) + +-------+ + | Component | Value | Ref Range | + +-------+ + | AMYLASE,PLASMA | 58 | 25 - 115 U/L | + +-------+ + + + + | Specimen | Performing Laboratory | + + + | Blood | [facility], CORE [address] | | | [place] [address] | + + + X-RAY ABD LTD FEEDING TUBE EVAL PORTABLE (09/09/2017 10:15 PM) + + + | Specimen | Performing Laboratory | + + + | | [facility] RAD[facility] VOICE RECOGNITION 2 | + [...] | | | + +--------+ +--------+-------+---------+ | PRIMER CHARGING TOOL SETTER MEDICAID | PRIMER CHARGING TOOL SETTER | xxxxxxxx | Medica | | | [...] | Self | [birth year] | Home: | [address] | | | al/Fam | | 3 | +1- | [place] [address] | | | taras | | | [phone] | | + +--------+ +--------+ + + | ARTEMIO TEMPLE | Third | Self | [birth year] | Home: | [address] | | | [employer] | | 1951 | +1- | [place] [address] | | | Flora | | | [phone] | | | | ity | | | | | + +--------+ +--------+ + +
--- OUTSIDE RECORDS SUMMARY | ~2017-12-10 | XMS | Encounter Summary ---
Demographics + + + | Address | [address] | | | [place] [address] | + + + | Home Phone [...] Author + + + | Author | [facility] [employer] [facility] | + + + | Organization | [facility] [employer] [facility] | + + + | Address | Unknown | + + + | Phone | Unavailable | + + + Support + + +---------+ + | Name | Relationship | Address | Phone | + + +---------+ + | Kaylie Baig | ECON | Unknown | | + + +---------+ + Care Team Providers + +------+ + | Care Framing Manager Name | Role | Phone | [...] | | | | | 14A/UHS[facility]W [facility] | | | | | | [facility], | | | | | | [place] [address] | | | | | | [phone] | | | +--------+ + + + [...]
--- OUTSIDE RECORDS SUMMARY | ~2017-12-10 | XMS | Encounter Summary ---
Demographics + + + | Address | [address] | | | [place] [address] | + + + | Home Phone [...] | On License Of [facility] [employer] [facility] | + + + | Organization | On License Of [facility] [employer] [facility] | + [...] Providers + +------+ + | Care Senior Budget Analyst Name | Role | Phone | [...] | | | | | | 14A/UHS8W [facility] | | | | | | [facility], | | | | | | [place] [address] | | | | | | [phone] | | | +--------+ + + + [...]
--- OUTSIDE RECORDS SUMMARY | ~2017-12-10 | XMS | Encounter Summary ---
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 PDTI saw and examined th e patient today with Venita Pruitt PA-C, and agree with the assessement and plan as outlined in her note. Plan takeback with NSG, we will place Gabriel-oconnor feeding tube at that time. Chaz Munoz MD, FACS Sales And Marketing Professional, Trauma, Critical Care and Acute Care [...] patient unable to come out of SERVICE PROMOTER SALESPERSON for now - Will likely need for [...] [place] [phone] [facility] [place] [address] [phone] Associated attestation - Chaz Munoz MD - 10/08/2017 12:16 PM PDTI saw and examined th e patient today with KESHAWN Martin, and agree with the assessement and plan a s outlined in her note. No acute events. Seems to be slowly improving from MS. Appreciate ps ychiatry recs. Chaz Munoz MD, FACS Sales And Marketing Professional, Trauma, Critical Care and Acute Care [...] patient unable to come out fo SERVICE PROMOTER SALESPERSON for now - Will likely need for [...] by patient, but wound remains cl zeferino/dry/intact. Guayama removed 09/17. #Left hemothorax Chest tube placed [...] G tube [place]g [phone] [facility] [place] [address] [phone] Associated attestation - Chaz Munoz MD - 10/07/2017 11:15 AM PDTI saw and examined th e patient today with KESHAWN Martin, and agree with the assessement and plan a s outlined in her note. Will consider changing to bolus TF. Plan Gabriel-oconnor tube next week. Chaz Munoz MD, FACS Sales And Marketing Professional, Trauma, Critical Care and Acute Care [...] atient unable to come out fo SERVICE PROMOTER SALESPERSON for now Resolved or chronic issues/Plan: #Previous [...] issues, including restraints. Venita Pruitt PA-[place] [phone] [facility] [place] [address] [phone] Associated attestation - Em Cunningham MD - 10/17/2017 10:13 AM PDTI was present and rou nded with the Advanced Practice Provider today . I interviewed and examined the patient. I reviewed the history, as documented today. I agree with the ASHLEY assessment and plan. TBI has remained stable. On lovenox. Will continue haldol per psych.. EM CUNNINGHAM MD [facility] [address] [place] [address] [place] [address] Venita Pruitt PA-C - 10/05/2017 8:38 AM [...] atient unable to come out fo SERVICE PROMOTER SALESPERSON for now Resolved or chronic issues/Plan: #Previous [...] by patient, but wound remains duke n/dry/intact. Guayama removed 09/17. #Left hemothorax Chest tube placed [...] issues, including restraints. Venita Pruitt PA-C [place] [phone] [place] [phone] [facility] [place] [address] [facility] [place] [address] [phone] Associated attestation - Shlomo Rosenthal MD - 10/06/2017 7:28 AM PDTFormatting of this note m ay be different from the original. I saw and examined Berlin Temple ([id number]) with the TRAUMA team on 10/05/2017. I [...] incen tive spirometry for pulmonary toliet. manager port for disposition planning and placement. Shlomo Rosenthal MD Gun Stocker Division of Trauma and Critical Care Venita [...] (baseline from previous TBI ) Neck: in Piedmont collar Respiratory: CTA b.l CV: RRR GI: [...] atient unable to come out fo SERVICE PROMOTER SALESPERSON for now Resolved or chronic issues/Plan: #Previous [...] by patient, but wound remains duke n/dry/intact. Guayama removed 09/17. #Left hemothorax Chest tube placed [...] issues, including restraints. Venita Pruitt PA-[place] [phone] [place] [phone] [facility] [address] [place] [facility] [phone] Associated attestation - Fidelina Shields MD - [...] and only enteral access. Fidelina Shields MD Sales And Marketing Professional Division of Trauma, Critical Care and Acute Care Surgery Office: [phone] Pager: [phone] Leonor Torres ACNP - 10/03/2017 3:13 PM [...] (baseline from previous TBI ) Neck: in Piedmont collar Respiratory: CTA bilaterally, no distress CV: [...] atient unable to come out fo SERVICE PROMOTER SALESPERSON for now Resolved or chronic issues/Plan: Previous [...] by patient, but wound remains duke n/dry/intact. Guayama removed 09/17. #Left hemothorax Chest tube placed [...] PDTAttending: I saw and examined Berlin Temple ([id number]) with CB Hair on morning rounds 10/03 and agree with the assessment and plan as outlined in this note and participated in the planning of care. Mental status is slightly better, remains sedated but he is interactive and at least somewh at oriented. Enteral nutrition advancing and, as approaches goal, will turn TPN off. Place ment remains a significant issue. Fidelina Shields MD Sales And Marketing Professional Division of Trauma, Critical Care and Acute Care Surgery Office: [phone] Pager: [phone] July Banegas PA-C - 10/03/2017 12:58 PM [...] C-collar when in bed then the SERVICE PROMOTER SALESPERSON when out of bed until 12/01/17. JULY BANEGAS PA-C [facility] [address] [facility] [address] [place] [address] Associated attestation - Magdiel Stock MD - 10/04/2017 6:02 PM PDTI performed a history a nd physical examination of the patient and discussed the management with the advanced practi ce provider, July Banegas PA-C. I reviewed the advanced practice provider's note and agree w ith the plan of care as documented. Continue cervical collar and SERVICE PROMOTER SALESPERSON for 3 months to ensure fracture healing and prevent development of post-fracture cervical kyphosis. Magdiel Stock MD Sales And Marketing Professional Department of Neurological Surgery [facility] [place] Torsten Sherine E, AGACN - 10/02/2017 12:54 [...] (baseline from previous TBI ) Neck: in Piedmont collar Respiratory: CTA bilaterally, lungs symmetrical, equal chest wall rise, no retractions CV: RRR GI: non tender, soft, active BS, last BM 09/30 : Patient voiding without difficulty Extremities: no peripheral edema, wiggles toes and toes pink and well perfused Musculoskeletal: 5/5 prosthetic lab technician strength on right, 3/5 prosthetic lab technician strength on left FEN: on TPN, [...] AMS & delirium - numerous evaluations by CLINIC DIRECTOR with trials of PO - now s/p [...] - C-collar at all times, use SERVICE PROMOTER SALESPERSON when OOB - Follow-up with Neurosurgery on [...] will decrease [place]g [phone] Associated attestation - Fidelina Shields MD - 10/02/2017 4:40 PM PDTAttending: I saw and examined Berlin Temple ([id number]) with KESHAWN Alexander on mornin g rounds [...] drawn back to midline position. May need half-way enteral access , but is ~4 weeks s/p damage control laparotomy and risk is higher now than it will be in 7- 14 days and if swallow is not improving then will place prior to DC Fidelina Shields MD Sales And Marketing Professional Division of Trauma, Critical Care and Acute Care Surgery Office: [phone] Pager: [phone] Sherine Sarmiento AGACNP - 10/01/2017 7:27 AM [...] (baseline from previous TBI ) Neck: in Piedmont collar Respiratory: CTA bilaterally, lungs symmetrical, equal chest wall rise, no retractions CV: RRR GI: non tender, soft, active BS, last BM 09/30 : Patient voiding without difficulty Extremities: no peripheral edema, wiggles toes and toes pink and well perfused Musculoskeletal: 5/5 prosthetic lab technician strength on right, 3/5 prosthetic lab technician strength on left FEN: on TPN [...] AMS & delirium - numerous evaluations by CLINIC DIRECTOR with trials of PO - now s/p modified barium swallow x2 which indicates aspiration - continue NPO - CLINIC DIRECTOR reports that patient working on tongue strength [...] - C-collar at all times, use SERVICE PROMOTER SALESPERSON when OOB - Follow-up with Neurosurgery on [...] trauma team [place] [phone] Associated attestation - Fidelina Shields MD - 10/02/2017 4:40 PM PDTAttending: I saw and examined Berlin Temple ([id number]) with KESHAWN Alexander on mornin g rounds 10/01/17 and agree with the assessment and plan as outlined in this note and partic ipated in the planning of care. Will trial DHT placement today, CT head unchanged. Suspect somnolence is medication side ef fect and, if persistent, may need to wean antipsychotic doses. Fidelina Shields MD Sales And Marketing Professional Division of Trauma, Critical Care and Acute Care Surgery Office: [phone] Pager: [phone] Christian Kelley PA-C - 09/30/2017 12:21 PM [...] Fixed and dilated on left Neck: in Piedmont collar Respiratory: CTA bilaterally, lungs symmetrical, equal chest wall rise, no retractions CV: RRR GI: non tender, soft, active BS, last BM 09/30 : Patient voiding without difficulty Extremities: no peripheral edema, wiggles toes and toes pink and well perfused Musculoskeletal: 5/5 prosthetic lab technician strength on right, 3/5 prosthetic lab technician strength on left FEN: on TPN [...] AMS & delirium - numerous evaluations by CLINIC DIRECTOR with trials of PO - now s/p modified barium swallow x2 which indicates aspiration - continue NPO - CLINIC DIRECTOR reports that patient working on tongue strength [...] - C-collar at all times, use SERVICE PROMOTER SALESPERSON when OOB - Follow-up with Neurosurgery on 10/21 with repeat X-rays #Blunt abdominal trauma #Splenic laceration S/p laparotomies x2. Fascia closed 09/02 Wound vac removed by patient, but wound remains duke n/dry/intact. Guayama removed 09/17. #Left hemothorax Chest tube placed [...] PDTAttending: I saw and examined Berlin Temple ([id number]) with Christian Kelley PA-C on morning rounds 09/30 and agree with the assessment and plan as outlined in this note and participated in the planning of care. Mentally slower this morning, but non-focal. Received haldol overnight for sleep. Repeat head CT was unchanged so suspect etiology of slowed responsiveness is the antipsychotic dose . CLINIC DIRECTOR believes that, once collar off, may be able to take PO more effectively and thus will hold off on surgical feeding access. TPN is a temporary solution and if patient remains kaye nable will trial DHT tomorrow. Working with psychiatry for medication recommendations. Fidelina Shields MD Sales And Marketing Professional Division of Trauma, Critical Care and Acute Care Surgery Office: [phone] Pager: [phone] July Banegas PA-C - 09/30/2017 8:23 AM PDTBrief Neurosurgery Wound Check: Wound is dry, without erythema, not fluctuant. No acute swelling. Nylon in place. Will plan to follow peripherally for wound checks and remove nylons on 10/09. JULY BANEGAS PA-C [facility] [address] [facility] [address] [place] [address] Christian Kelley PA-C - 09/29/2017 7:15 AM [...] and EOMs intact to exam Neck: in Piedmont collar Respiratory: CTA bilaterally, lungs symmetrical, equal [...] AMS & delirium - numerous evaluations by CLINIC DIRECTOR with trials of PO - now s/p [...] - C-collar at all times, use SERVICE PROMOTER SALESPERSON when OOB - Follow-up with Neurosurgery on 10/21 with repeat X-rays #Blunt abdominal trauma #Splenic laceration S/p laparotomies x2. Fascia closed 09/02 Wound vac removed by patient, but wound remains duke n/dry/intact. Guayama removed 09/17. #Left hemothorax Chest tube placed [...] PDTAttending: I saw and examined Berlin Temple ([id number]) with Christian Kelley PA-C on morning rounds 09/29 and agree with the assessment and plan as outlined in this note and participated in the planning of care. Late entry for 09/29/17. Persistent alterations in conscious and dysphagia. Hopefully with ongoing speech therapy a nd when clear to take c-collar off, will improve ability to take PO. While TPN is not an opt imal chair spring assembler strategy, would prefer not to place surgical feeding tube if possible given r elatively recent damage control laparotomy and high risk of Mr. Temple pulling it out. Have tried DHT several times and it seems to worsen delirium and he pulls it out frequently. Tit ration of haldol in conjunction with psychiatry. Fidelina Shields MD Sales And Marketing Professional Division of Trauma, Critical Care and Acute Care Surgery Office: [phone] Pager: [phone] Christian Kelley PA-C - 09/28/2017 1:01 PM [...] he said, who, ariel? And then the NURSE EXECUTIVE helped him make a call to her. [...] and EOMs intact to exam Neck: in Piedmont collar Respiratory: CTA bilaterally, lungs symmetrical, equal [...] very agitated today. - EKG today with [place] QTc calculated to be 428 - optimize [...] AMS & delirium - numerous evaluations by CLINIC DIRECTOR with trials of PO - now s/p [...] - C-collar at all times, use SERVICE PROMOTER SALESPERSON when OOB - Follow-up with Neurosurgery on [...] to communicate more toyoselin Munoz MD, FACS Sales And Marketing Professional, Trauma, Critical Care and Acute Care Surgery Chaz Munoz MD - 09/28/2017 10:13 AM PDTTrauma Staff Seen and examined this AM with team. I have concerns abotu behaviour, as he is consistently threatening RN and ancillary staff, even attempting swings. Behavior seems worse at night. I would favor increasing night time Haldol dose, and following EKGs. Chaz Munoz MD, FACS Sales And Marketing Professional, Trauma, Critical Care and Acute Care [...] Dallin Bourgeois MD Neurosurgery PGY1 | Pager #[phone] Christian Kelley PA-C - 09/27/2017 7:31 AM [...] able to have a linear conversation briefly CLINIC DIRECTOR requesting repeat barium swallow Current meds: I [...] healing , suture c/d/I Neck: in SERVICE PROMOTER SALESPERSON Respiratory: unlabored on room air, lungs symmetrical, [...] AMS & delirium - numerous evaluations by CLINIC DIRECTOR with trials of PO - now s/p [...] - C-collar at all times, use SERVICE PROMOTER SALESPERSON when OOB - Follow-up with Neurosurgery on [...] cotinue TPN for now. EM CUNNINGHAM MD [facility] [address] [place] [address] Christian Kelley PA-C - 09/26/2017 6:48 AM [...] posterior scalp crani incision c/d/I Neck: in Piedmont collar Respiratory: unlabored on room air CV: [...] AMS & delirium - numerous evaluations by CLINIC DIRECTOR with trials of PO - now s/p [...] - C-collar at all times, use SERVICE PROMOTER SALESPERSON when OOB - Follow-up with Neurosurgery on [...] Continue NPO and TPN. EM CUNNINGHAM MD [facility] [address] [place] [address] Christian Kelley PA-C - 09/25/2017 7:49 AM [...] EOMs intact to exam Neck: in SERVICE PROMOTER SALESPERSON brace Respiratory: unlabored on room air CV: [...] AMS & delirium - numerous evaluations by CLINIC DIRECTOR with trials of PO - now s/p [...] - C-collar at all times, use SERVICE PROMOTER SALESPERSON when OOB - Follow-up with Neurosurgery on [...] LFTS wnl. Continue TPN. EM CUNNINGHAM MD [facility] [address] [place] [address] Christian Kelley PA-C - 09/24/2017 11:07 AM [...] with agitation Having difficulty swallowing again - CLINIC DIRECTOR to re-eval and obtain barium swallow Current [...] EOMs intact to exam Neck: in SERVICE PROMOTER SALESPERSON brace Respiratory: CTA bilaterally, lungs symmetrical, equal chest wall rise, no retractions CV: RRR GI: non distended, last BM 09/23 : good urine output Extremities: SCD's in place, no peripheral edema, wiggles toes and toes pink and well perfu sed Musculoskeletal: 5/5 strength in bilateral prosthetic lab technician (but with slightly weaker on left) [...] likely 2/2 AMS & delirium - Failed CLINIC DIRECTOR eval 09/19 & 09/20, made NPO & dobhoff reinserted 09/21 but pulled overnight - Per CLINIC DIRECTOR on 09/21, ok for therapeutic pureed with [...] - C-collar at all times, use SERVICE PROMOTER SALESPERSON when OOB - Follow-up with Neurosurgery on 10/21 with repeat X-rays #Blunt abdominal trauma #Splenic laceration S/p laparotomies x2. Fascia closed 09/02 Wound vac removed by patient, but wound remains duke n/dry/intact. Guayama removed 09/17. #Left hemothorax Chest tube placed [...] Start abx for dehiscence. EM CUNNINGHAM MD [facility] [address] [place] [address] Ginette Campos PA-C - 09/24/2017 9:31 AM [...] 4 extremities Unable to assess drift. Motor: Inseminator Bicep Tricep Delt R 5 5 5 [...] further questions or concerns. Ginette Campos PA-C [facility] [address] [facility] [address] [place] [address] Pg [phone] Sherine Sarmiento, [facility] - 09/23/2017 6:32 AM PDTFormatting of this [...] draining minimal serosang fluid Neck: in SERVICE PROMOTER SALESPERSON brace Respiratory: unlabored on room air CV: [...] likely 2/2 AMS & delirium - Failed CLINIC DIRECTOR eval 09/19 & 09/20, made NPO & dobhoff reinserted 09/21 but pulled overnight - Per CLINIC DIRECTOR on 09/21, ok for therapeutic pureed with [...] - C-collar at all times, use SERVICE PROMOTER SALESPERSON when OOB - Follow-up with Neurosurgery on 10/21 with repeat X-rays #Blunt abdominal trauma #Splenic laceration S/p laparotomies x2. Fascia closed 09/02 Wound vac removed by patient, but wound remains duke n/dry/intact. Guayama removed 09/17. #Left hemothorax Chest tube placed [...] ium improves Sherine Sarmiento, [facility] Pg [phone] Dallin Bourgeois MD - 09/22/2017 8:03 AM [...] Dallin Bourgeois MD Neurosurgery PGY1 | Pager #[phone] Sherine Sarmiento, AGACN - 09/22/2017 6:52 AM [...] 24hr events: - Therapeutic purees initiated by CLINIC DIRECTOR yesterday - Trickle feeds via Dobbhoff, pt pulled Dobbhoff yesterday evening- not replaced - RESEARCH PROGRAM COORDINATOR called around 2129 for new left facial droop (see separate notes), CT revealed increa se in SDH from 12 to 17mm with no change in midline shift. [facility] - NSG and [...] sluggish. Slight left facial droop Neck: in Piedmont collar Respiratory: unlabored on room air CV: [...] likely 2/2 AMS & delirium - Failed CLINIC DIRECTOR eval 09/19 & 09/20, made NPO & dobhoff reinserted 09/21 but pulled overnight - Per CLINIC DIRECTOR on 09/21, ok for therapeutic pureed with [...] - C-collar at all times, use SERVICE PROMOTER SALESPERSON when OOB - Follow-up with Neurosurgery on [...] delirium improves Sherine Sarmiento, [facility] Pg [phone] Associated attestation - Shiva Nieto MD,MPH - [...] Trauma, Critical Care & Acute Care Surgery [facility] [phone] Sami Black - 09/21/2017 10:25 PM PDTBrief [...] in the morning. Plan: -neuro checks; page [phone] for any decline in neurological examination -pain control -Hard C collar at all times and place SERVICE PROMOTER SALESPERSON prior to mobilizing OOB. Anticipated duration of Collar/SERVICE PROMOTER SALESPERSON is 12 weeks -repeat CT head for any new decline in neurological exam and page [phone] -NPO at midnight tonight -please hold tonight's planned dose of Lovenox -further recommendations in the morning Sami Black MD, PhD PGY-3 Resident Neurosurgery [id number] estrella, AGACNP - 09/21/2017 7:10 AM PDTFormatting [...] Provena placem ent 24hr events: - Failed CLINIC DIRECTOR eval again yest morning, continued NPO - [...] reactive. Dobbhoff tube in place Neck: in Piedmont collar Respiratory: unlabored on room air CV: [...] likely 2/2 AMS & delirium - Failed CLINIC DIRECTOR eval 09/19 & 09/20, made NPO & dobhoff reinserted yesterday - Trickle feeds started this am at 20ml/hr, increase very slowly by 10ml every 12 hrs to go al of 75 due to hx of mesenteric hematomas and previous inability to tolerate TF - Per CLINIC DIRECTOR today, ok for therapeutic pureed with nectar [...] - C-collar at all times, use SERVICE PROMOTER SALESPERSON when OOB - Follow-up with Neurosurgery on [...] & [place] [phone] Associated attestation - Fidelina Shields MD - 09/21/2017 9:36 PM PDTAttending: I saw and examined Berlin Temple ([id number]) with KESHAWN Alexander on mornin g rounds [...] enough to re-trial PO. Fidelina Shields MD Sales And Marketing Professional Division of Trauma, Critical Care and Acute Care Surgery Office: [phone] Pager: [phone] Sherine Sarmiento AGACNP - 09/20/2017 7:41 AM [...] haldol given yesterday afternoon for agitation - CLINIC DIRECTOR paged to re-eval in afternoon after concern for aspiration, made NPO by CLINIC DIRECTOR - DARNELL SOLANO Current meds: I have [...] right pupil 3 and reactive Neck: in Piedmont collar Respiratory: unlabored on room air CV: [...] thick/pureed d iet. Made NPO yesterday by CLINIC DIRECTOR after concern for aspiration. This is likely 2/2 waxing & wan ing delirium & AMS - CLINIC DIRECTOR re-eval today recommend continue NPO d/t overt clinical signs of aspiration - Place Dobbhoff tube and restart feeds, slowly progress to goal - Stop TPN when tolerating tube feeds - CLINIC DIRECTOR will follow closely, as his AMS improves [...] - C-collar at all times, use SERVICE PROMOTER SALESPERSON when OOB - Follow-up with Neurosurgery on [...] & [place] [phone] Associated attestation - Fidelina Shields MD - 09/20/2017 9:34 PM PDTAttending: I saw and examined Berlin Temple ([id number]) with KESHAWN Alexander on mornin g rounds [...] dispo planning when able. Fidelina Shields MD Sales And Marketing Professional Division of Trauma, Critical Care and Acute Care Surgery Office: [phone] Pager: [phone] Mary Medrano MD,MPH - 09/19/2017 6:22 AM [...] downgraded from thin to thick liquids by CLINIC DIRECTOR Current meds: I have independently reviewed current [...] intact, small Right fluctuant pseudomeningocele Neck: in Piedmont collar Respiratory: unlabored on room air CV: [...] DHT on09/19. - Cleared for diet by CLINIC DIRECTOR, tolerating purees, 749 Calories yesterday - Restart Calorie count: if taking >700 again will be OK for full po diet, otherwise replac e DHT and restart TF - Stop TPN tomorrow regardless - Still considering repeat CT abdomen/pelvis #Dysphagia DHTreplaced overnight 09/07. TF held due to emesis and possible ileus, aspiration risk. DH T pulled overnight on 09/18 - CLINIC DIRECTOR as able Resolved or chronic issues/Plan: #BIG 3 TBI #Right synthetic cranioplasty Neurosurgery consulted. Non-operative management. Last head CT 09/12 stable. Expected pseudo meningocele. Left-sided deficits consistent with baseline. - Stat head CT for any neurologic decline #C7 bilateral lamina fractures #C6-T2 spinous process fractures Neurosurgery consulted. Non-operative management. Upright cervical X-rays completed on 09/14 . - C-collar at all times, use SERVICE PROMOTER SALESPERSON when OOB - Follow-up with Neurosurgery on [...] M.D., M.P.H. Neurological Surgery Resident PGY-1 Pager: [phone] Associated attestation - Fidelina Shields MD - 09/19/2017 1:36 PM PDTAttending: I saw and examined Berlin Temple ([id number]) with the residents on morning rounds 09/19/17 and agree with the assessment and plan as outlined in this note and participated in the plan aashish of care. Improving po intake, will titrate TPN. Plan to DC TPN tomorrow and transition to PO vs PO + TF depending on calorie counts. Once of restraints will begin looking for placement. Fidelina Shields MD Sales And Marketing Professional Division of Trauma, Critical Care and Acute Care Surgery Office: [phone] Pager: [phone] Mary Medrano MD,MPH - 09/18/2017 6:17 AM [...] fluctuant pseudomeningocele,Dobhoff tubein p lace Neck: in Piedmont collar Respiratory: unlabored on room air CV: [...] holding TF - Cleared for diet by CLINIC DIRECTOR, tolerating small quantities of purees - Will need repeat CT A/P within 1-2 days #Hypervolemia I&O approaching even. Appears to have been auto-diuresing. - Continue to monitor urine output - Monitor electrolytes, replete prn #Dysphagia DHTreplaced overnight 09/07. TF held due to emesis and possible ileus, aspiration risk. - CLINIC DIRECTOR as able #C7 bilateral lamina fractures #C6-T2 spinous process fractures Neurosurgery consulted. Non-operative management. Upright cervical X-rays completed on 09/14 . - C-collar at all times, use SERVICE PROMOTER SALESPERSON when OOB - Follow-up with Neurosurgery on [...] M.D., M.P.H. Neurological Surgery Resident PGY-1 Pager: [phone] Associated attestation - Fidelina Shields MD - 09/19/2017 3:58 PM PDTAttending: I saw and examined Berlin Temple ([id number]) with the residents on morning rounds 09/18/17 and agree with the assessment and plan as outlined in this note and participated in the plan aashish of care. Fidelina Shields MD Sales And Marketing Professional Division of Trauma, Critical Care and Acute Care Surgery Office: [phone] Pager: [phone] Mary Medrano MD,MPH - 09/17/2017 6:26 AM [...] fluctuant pseudomeningocele,Dobhoff tubein p lace Neck: in Piedmont collar Respiratory: unlabored on room air CV: [...] holding TF - Cleared for diet by CLINIC DIRECTOR, tolerating small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 Laboratory | + + + | | [facility] [address] [place] [address] | | | [place] [address] | + + + 12 LEAD ECG [...] Laboratory | + + + | | [facility] [address] [place] [address] | | | [place], [place] [address] | + + + CALCIUM, IONIZED, WHOLE [...] | + + + | Blood | [facility], CORE [address] | | | [place] [address] | + + + C-REACTIVE PROTEIN (11/18/2017 7:45 AM) + +-------+ + | Component | Value | Ref Range | + +-------+ + | C-REACTIVE PROTEIN | <2.9 | <10.0 mg/L | + +-------+ + + + + | Specimen | Performing Laboratory | + + + | Blood | [facility], CORE [address] | | | [place] [address] | + + + + + | [...] | Blood | [facility] [address] [place], [place] | | | [address] | + + + TRIGLYCERIDES, PLASMA (11/18/2017 7:45 AM) + +---------+ + | Component | Value | Ref Range | + +---------+ + | TRIGLYCERIDES | 162 (H) | <150 mg/dL | + +---------+ + + + + | Specimen | Performing Laboratory | + + + | Blood | [facility], CORE [address] [facility] | | | [place] [address] | + + + + + | [...] | + + + | Blood | [facility], CORE [address] [place] [address] | | | [place] [address] | + + + RENAL FUNCTION SET [...] | >60 | >60 mL/min | | OMANI | | | + + + + | EGFR NON | >60 | >60 mL/min | | -OMANI | | | + + + + [...] | + + + | Blood | [facility], CORE [address] [place] [address] | | | [place] [address] | + + + + + | [...] | + + + | Blood | [facility], CORE [address] [facility] | | | [place] [address] | + + + + + | [...] | + + + | | [facility] [address] [facility] | | | [place] [address] | + + + 12 LEAD ECG [...] | + + + | | [facility] [address] [place] [address] | | | [place] [address] | + + + CBC (HEMOGRAM) ONLY [...] | + + + | Blood | [facility], CORE [address] [facility] | | | [place] [address] | + + + + + | [...] | | ------ CBC (HEMOGRAM) | | ONLY[[id number]] Abnormal Final | | result Please view [...] Laboratory | + + + | | [facility] [address] [place] [address] | | | [place] [address] | + + + RENAL FUNCTION SET [...] | >60 | >60 mL/min | | OMANI | | | + + + + | EGFR NON | >60 | >60 mL/min | | -OMANI | | | + + + + [...] | + + + | Blood | [facility], CORE [address] [facility] | | | [place], [place] [address] | + + + + + | [...] | + + + | Blood | [facility], CORE [address] [facility] | | | [place] [address] | + + + + + | [...] Laboratory | + + + | | [facility] [address] [place] [address] | | | [place] [address] | + + + MAGNESIUM, PLASMA (11/13/2017 5:47 AM) + +-------+ + | Component | Value | Ref Range | + +-------+ + | MAGNESIUM,PLASMA | 2.1 | 1.6 - 2.6 mg/dL | + +-------+ + + + + | Specimen | Performing Laboratory | + + + | Blood | [facility], CORE [address] [facility] | | | [place] [address] | + + + + + | [...] | >60 | >60 mL/min | | OMANI | | | + + + + | EGFR NON | >60 | >60 mL/min | | -OMANI | | | + + + + [...] | + + + | Blood | [facility], CORE [address] | | | [place] [address] | + + + + + [...] | + + + | Urine | [facility] [address] [place], [place] | | | [address] | + + + VASC LAB VENOUS DUPLEX LOWER EXTREMITY BILAT COMP (11/12/2017 9:35 AM) + + + | Specimen | Performing Laboratory | + + + | | [facility] | + + + + [...] Note | + + | Service Account, [employer] In Interface - 11/12/2017 1:46 PM PDT [...] | + + + | | [facility] [address] [facility] | | | [place] [address] | + + + CT CHEST, ABDOMEN AND PELVIS W IV CONTRAST (11/11/2017 6:57 PM) + + + | Specimen | Performing Laboratory | + + + | | [facility] VOICE RECOGNITION 2 | + + [...] as before. Partial visualization of an intramedullary susham within the | | left femur. Right [...] | + + + | Blood | [facility], CORE [address] [facility] | | | [place] [address] | + + + PROTEIN ELECTROPHORESIS, SERUM, [...] | + + + | Blood | [facility] [address] [place], [place] | | | [address] | + + + 12 LEAD ECG [...] Laboratory | + + + | | [address] | | | [place] [address] | + + + C-REACTIVE PROTEIN (11/11/2017 9:06 AM) + +-------+ + | Component | Value | Ref Range | + +-------+ + | C-REACTIVE PROTEIN | <2.9 | <10.0 mg/L | + +-------+ + + + + | Specimen | Performing Laboratory | + + + | Blood | [facility], CORE [address] [facility] [facility] | | | [place] [address] | + + + + + | [...] | + + + | Blood | [facility] [address] [place], [place] | | | [address] | + + + TRIGLYCERIDES, PLASMA (11/11/2017 9:06 AM) + +-------+ + | Component | Value | Ref Range | + +-------+ + | TRIGLYCERIDES | 117 | <150 mg/dL | + +-------+ + + + + | Specimen | Performing Laboratory | + + + | Blood | [facility], CORE [address] [facility] | | | [place] [address] | + + + + + | [...] | + + + | Blood | [facility], CORE [address] [place] [address] | | | [place] [address] | + + + LIVER SET (AST,ALT,BILI [...] | + + + | Blood | [facility], CORE [address] [facility] | | | [place] [address] | + + + RENAL FUNCTION SET [...] | >60 | >60 mL/min | | OMANI | | | + + + + | EGFR NON | >60 | >60 mL/min | | -OMANI | | | + + + + [...] | + + + | Blood | [facility], CORE [address] [facility] | | | [place] [address] | + + + + + | [...] + + + | Blood | [facility], CORE [address] [facility] | | | [place] [address] | + + + + + | [...] | + + + | Blood | [facility], CORE [address] [facility] | | | [place] [address] | + + + + + | [...] | >60 | >60 mL/min | | OMANI | | | + + + + | EGFR NON | >60 | >60 mL/min | | -OMANI | | | + + + + [...] | + + + | Blood | [facility], CORE [address] [place] [address] | | | [place] [address] | + + + + + | [...] Laboratory | + + + | | [facility] [address] [place] [address] | | | [place] [address] | + + + MAGNESIUM, PLASMA (11/10/2017 10:19 AM) + +-------+ + | Component | Value | Ref Range | + +-------+ + | MAGNESIUM,PLASMA | 2.0 | 1.6 - 2.6 mg/dL | + +-------+ + + + + | Specimen | Performing Laboratory | + + + | Blood | [facility], CORE [address] [facility] [facility] | | | [place], [place] [address] | + + + + + | [...] | >60 | >60 mL/min | | OMANI | | | + + + + | EGFR NON | >60 | >60 mL/min | | -OMANI | | | + + + + [...] | + + + | Blood | [facility], CORE [address] [facility] [address] | | | [place] [address] | + + + + + | [...] + + + | Blood | [facility], CORE [address] [place] [address] | | | [place], [place] [address] | + + + + + | [...] | >60 | >60 mL/min | | OMANI | | | + + + + | EGFR NON | >60 | >60 mL/min | | -OMANI | | | + + + + [...] | + + + | Blood | [facility], CORE [address] [facility] | | | [place] [address] | + + + + + | [...] Note | + + | Service Account, [employer] In Interface - 11/08/2017 2:31 PM [...] | + + + | Blood | [facility], CORE [address] | | | [place] [address] | + + + + + | [...] | >60 | >60 mL/min | | OMANI | | | + + + + | EGFR NON | >60 | >60 mL/min | | -OMANI | | | + + + + [...] + + + | Blood | [facility], CORE [address] [place] [address] | | | [facility] [address] | + + + + + | [...] | | [facility] [address] [facility] | | | [place] [address] | + + + CT HEAD WO [...] Laboratory | + + + | | [facility] [address] [place] [address] | | | [place] [address] | + + + RENAL FUNCTION SET [...] | >60 | >60 mL/min | | OMANI | | | + + + + | EGFR NON | >60 | >60 mL/min | | -OMANI | | | + + + + [...] | + + + | Blood | [facility] [address] | | | [place] [address] | + + + + + | [...] + + + | Blood | [facility], CORE [address] [facility] | | | [facility] [address] | + + + + + | [...] + + | PRODUCT UNIT # | [id number] | | + + + + | UNIT ABO | O | | + + + + | UNIT RH | POS | | + + + + | STATUS OF UNIT | Returned to Blood Bank | | + + + + | EXPIRATION DATE | [id number] | | + + + + | BLOOD TYPE BARCODE | 5100 | | + + + + | BLOOD PRODUCT CODE | [id number] | | + + + + + + + | Specimen | Performing Laboratory | + + + | | [facility], [facility] MEDICINE [address] [place] [address] | | | [place] [address] | + + + PRODUCT - RED CELLS LEUKOREDUCED (11/06/2017 8:03 AM) + + + + | Component | Value | Ref Range | + + + + | PRODUCT DESCRIPTION | -1 RED BLOOD CELL ADENINE-SALINE ADDED | | | | LEUKOCYTE | | + + + + | PRODUCT UNIT # | [id number] | | + + + + | UNIT ABO | O | | + + + + | UNIT RH | POS | | + + + + | STATUS OF UNIT | Returned to Blood Bank | | + + + + | EXPIRATION DATE | [phone] | | + + + + | BLOOD TYPE BARCODE | 5100 | | + + + + | BLOOD PRODUCT CODE | [id number] | | + + + + + + + | Specimen | Performing Laboratory | + + + | | [facility], [facility]ICINE [address] [facility] | | | [place] [address] | + + + CBC (HEMOGRAM) ONLY [...] | + + + | Blood | [facility], [facility] [address] [place] [address] | | | [place] [address] | + + + + + | [...] | | ------ CBC (HEMOGRAM) | | ONLY[[id number]] Abnormal Final | | result Please view [...] | + + + | Blood | [facility], CORE [address] [facility] | | | [place] [address] | + + + + + | [...] | >60 | >60 mL/min | | OMANI | | | + + + + | EGFR NON | >60 | >60 mL/min | | -OMANI | | | + + + + [...] | + + + | Blood | [facility], CORE [address] [facility] | | | [place] [address] | + + + + + | [...] Attending | | Surgeon: Magdiel Stock MD Administrative Receptionist(s): Rg Aiken MD | | Preoperative Diagnoses: [...] his head was placed in a horseshoe assembler golf wood head with his C-collar still | | [...] the incision down to the cranium. Once [place] | | skull was reached circumferentially around the prior incision, a #1 [place] was used | | to subperiosteally dissect [...] note for this encounter.Sonal Nunez, | | [facility] [id number] [place], [place] | | [phone] Orina, MDJB/MODLDD: 11/05/2017 20:38:01DT: 11/06/2017 | | 00:27:33Job #: [id number] | |HATTIE/DUC | | | | | | /[id number] | + + CT HEAD WO CONTRAST (11/05/2017 7:55 PM) + + + | Specimen | Performing Laboratory | + + + | | [facility] VOICE RECOGNITION 2 | [...] Note | + + | Service Account, [employer] In Interface - 11/05/2017 8:20 PM [...] | nursing staff. Surgeon: Magdiel Stock MD Administrative Receptionist: Rg Aiken MD | | Pre-op Diagnosis: [...] | MD Attila PGY-4 Neurological Surgery Pager [phone] | + + CAPILLARY BLOOD GLUCOSE (NO [...] [address] | | | [place] [address] | + + + CAPILLARY BLOOD GLUCOSE [...] [address] | | | [place] [address] | + + + [facility] LAB VENOUS DUPLEX LOWER EXTREMITY BILAT COMP (11/05/2017 10:36 AM) + + + | Specimen | Performing Laboratory | + + + | | [facility] VAS US | + [...] Note | + + | Service Account, [employer] In Interface - 11/05/2017 11:31 AM [...] | + + + | Blood | [facility], CORE [address] [facility] | | | [place] [address] | + + + + + | [...] | + + + | Blood | [facility], [facility] [address] | | | [place] [address] | + + + + + | [...] | >60 | >60 mL/min | | OMANI | | | + + + + | EGFR NON | >60 | >60 mL/min | | -OMANI | | | + + + + [...] + + + | Blood | [facility], [address] [facility] | | | [place] [address] | + + + + + | [...] | + + + | Blood | [facility], [address] [facility] | | | [place] [address] | + + + + + | [...] | | ------ CBC (HEMOGRAM) | | ONLY[[id number]] Abnormal Final | | result Please view [...] + + | PRODUCT UNIT # | [id number] | | + + + + | UNIT ABO | O | | + + + + | UNIT RH | POS | | + + + + | STATUS OF UNIT | Returned to Blood Bank | | + + + + | EXPIRATION DATE | [id number] | | + + + + | BLOOD TYPE BARCODE | 5100 | | + + + + | BLOOD PRODUCT CODE | [id number] | | + + + + + + + | Specimen | Performing Laboratory | + + + | | [facility], [facility] [address] | | | [place] [address] | + + + PRODUCT - RED CELLS LEUKOREDUCED (11/04/2017 8:19 PM) + + + + | Component | Value | Ref Range | + + + + | PRODUCT DESCRIPTION | -1 RED BLOOD CELL ADENINE-SALINE ADDED | | | | LEUKOCYTE | | + + + + | PRODUCT UNIT # | [id number] | | + + + + | UNIT ABO | O | | + + + + | UNIT RH | POS | | + + + + | STATUS OF UNIT | Returned to Blood Bank | | + + + + | EXPIRATION DATE | [id number] | | + + + + | BLOOD TYPE BARCODE | 5100 | | + + + + | BLOOD PRODUCT CODE | [id number] | | + + + + + + + | Specimen | Performing Laboratory | + + + | | [facility], [facility] [address] [place] [address] | | | [place] [address] | + + + CBC (HEMOGRAM) ONLY [...] | + + + | Blood | [facility], [address]ORE [address] | | | [place] [address] | + + + + + | [...] | + + + | Blood | [facility], [facility] [address] [facility] | | | [place] [address] | + + + ABO & RH [...] | + + + | Blood | [facility], [facility] [address] [facility] | | | [place] [address] | + + + TYPE AND SCREEN [...] | ------ ABO & RH | | TYPE[[id number]] F | | inal result ANTIBODY | | SCREEN[[id number]] Fin | | al result Please view [...] | + + + | Blood | [facility], CORE [address] | | | [place] [address] | + + + + + | [...] | | ------ CBC (HEMOGRAM) | | ONLY[[id number]] Abnormal Final | | result Please view [...] Laboratory | + + + | | [facility] [address] [place] [address] | | | [place] [address] | + + + CALCIUM, IONIZED, WHOLE [...] | + + + | Blood | [facility], CORE [address] [facility] | | | [place] [address] | + + + C-REACTIVE PROTEIN (11/04/2017 5:59 AM) + +-------+ + | Component | Value | Ref Range | + +-------+ + | C-REACTIVE PROTEIN | <2.9 | <10.0 mg/L | + +-------+ + + + + | Specimen | Performing Laboratory | + + + | Blood | [facility], CORE [address] [facility] | | | [place] [address] | + + + + + | [...] | Blood | [facility] [address] [place], [place] | | | [address] | + + + TRIGLYCERIDES, PLASMA (11/04/2017 5:59 AM) + +-------+ + | Component | Value | Ref Range | + +-------+ + | TRIGLYCERIDES | 111 | <150 mg/dL | + +-------+ + + + + | Specimen | Performing Laboratory | + + + | Blood | [facility], CORE [address] [facility] | | | [place] [address] | + + + + + | [...] | + + + | Blood | [facility], CORE [address] [place] [address] | | | [facility] [place] [address] | + + + RENAL FUNCTION SET [...] | >60 | >60 mL/min | | OMANI | | | + + + + | EGFR NON | >60 | >60 mL/min | | -OMANI | | | + + + + [...] | + + + | Blood | [facility], CORE [address] | | | [place] [address] | + + + + + | [...] | + + + | Blood | [facility], CORE [address] [facility] | | | [place], [place] [address] | + + + + + | [...] | + + + | Blood | [facility], CORE [address] [facility] | | | [place] [address] | + + + + + | [...] | >60 | >60 mL/min | | OMANI | | | + + + + | EGFR NON | >60 | >60 mL/min | | -OMANI | | | + + + + [...] + + + | Blood | [facility], CORE [address] [place] [address] | | | [place] [address] | + + + + + | [...] | + + + | Blood | [facility], CORE [address] [facility] | | | [place] [address] | + + + + + | [...] | >60 | >60 mL/min | | OMANI | | | + + + + | EGFR NON | >60 | >60 mL/min | | -OMANI | | | + + + + [...] | + + + | Blood | [facility], [facility] [address] | | | [place] [address] | + + + + + | [...] Laboratory | + + + | | [facility] [address] [place] [address] | | | [place] [address] | + + + MAGNESIUM, PLASMA (11/01/2017 4:40 AM) + +-------+ + | Component | Value | Ref Range | + +-------+ + | MAGNESIUM,PLASMA | 2.0 | 1.6 - 2.6 mg/dL | + +-------+ + + + + | Specimen | Performing Laboratory | + + + | Blood | [facility], CORE [address] [facility] | | | [place] [address] | + + + + + | [...] | >60 | >60 mL/min | | OMANI | | | + + + + | EGFR NON | >60 | >60 mL/min | | -OMANI | | | + + + + [...] | + + + | Blood | [facility], CORE [address] [place] [address] | | | [place] [address] | + + + + + | [...] Note | + + | Service Account, Radi140Fire Res In Interface - 10/31/2017 8:22 PM [...] Laboratory | + + + | | [facility] [address] [place] [address] | | | [place] [address] | + + + RENAL FUNCTION SET [...] | >60 | >60 mL/min | | OMANI | | | + + + + | EGFR NON | >60 | >60 mL/min | | -OMANI | | | + + + + [...] | + + + | Blood | [facility], CORE [address] | | | [place] [address] | + + + + + | [...] | + + + | Blood | [facility], CORE [address] [facility] | | | [place] [address] | + + + + + | [...] [address] | | | [place] [address] | + + + MAGNESIUM, PLASMA (10/30/2017 5:29 AM) + +-------+ + | Component | Value | Ref Range | + +-------+ + | MAGNESIUM,PLASMA | 1.8 | 1.6 - 2.6 mg/dL | + +-------+ + + + + | Specimen | Performing Laboratory | + + + | Blood | [facility], CORE [address] | | | [place] [address] | + + + + + | [...] | >60 | >60 mL/min | | OMANI | | | + + + + | EGFR NON | >60 | >60 mL/min | | -OMANI | | | + + + + [...] + + + | Blood | [facility], CORE [address] [place] [address] | | | [place] [address] | + + + + + | [...] Note | + + | Service Account, Trusera In Interface - 10/29/2017 12:13 PM PDT [...] + + + | | SELENA PIYUSH TEKOA, POINT OF [facility] TESTS [address] | | | [place] [address] | + + + MAGNESIUM, PLASMA (10/29/2017 6:19 AM) + +-------+ + | Component | Value | Ref Range | + +-------+ + | MAGNESIUM,PLASMA | 1.9 | 1.6 - 2.6 mg/dL | + +-------+ + + + + | Specimen | Performing Laboratory | + + + | Blood | [facility], CORE [address] [facility] | | | [place] [address] | + + + + + | [...] | >60 | >60 mL/min | | OMANI | | | + + + + | EGFR NON | >60 | >60 mL/min | | -OMANI | | | + + + + [...] | + + + | Blood | [facility], [facility] [address] | | | [place] [address] | + + + + + | [...] Laboratory | + + + | | ALDANIELLE PIYUSH TEKOA, POINT OF CARE TESTS [address] | | | [place] [address] | + + + 12 LEAD ECG [...] | + + + | | [facility] [address] [place] [address] | | | [place] [address] | + + + CAPILLARY BLOOD GLUCOSE [...] [address] | | | [place] [address] | + + + CAPILLARY BLOOD GLUCOSE (NO CHG), POC (10/28/2017 6:43 AM) + +---------+ + | Component | Value | Ref Range | + +---------+ + | BLOOD GLUCOSE, POC | 127 (H) | 70 - 99 mg/dL | + +---------+ + + + + | Specimen | Performing Laboratory | + + + | | ALDANIELLE PIYUSH TEKOA, POINT OF CARE TESTS [address] | | | [place] [address] | + + + C-REACTIVE PROTEIN (10/28/2017 5:29 AM) + + + + | Component | Value | Ref Range | + + + + | C-REACTIVE PROTEIN | 17.9 (H) | <10.0 mg/L | + + + + + + + | Specimen | Performing Laboratory | + + + | Blood | [facility], CORE [address] [facility] | | | [place] [address] | + + + + + | [...] | + + + | Blood | [facility] [place] [address] [place], [place] | | | [address] | + + + TRIGLYCERIDES, PLASMA (10/28/2017 5:29 AM) + +-------+ + | Component | Value | Ref Range | + +-------+ + | TRIGLYCERIDES | 117 | <150 mg/dL | + +-------+ + + + + | Specimen | Performing Laboratory | + + + | Blood | [facility], CORE [address] [facility] | | | [place] [address] | + + + + + | [...] | + + + | Blood | [facility], CORE [address] [place] [address] | | | [place] [address] | + + + LIVER SET (AST,ALT,BILI [...] | + + + | Blood | [facility], CORE [address] [facility] | | | [place] [address] | + + + RENAL FUNCTION SET [...] | >60 | >60 mL/min | | OMANI | | | + + + + | EGFR NON | >60 | >60 mL/min | | -OMANI | | | + + + + [...] | + + + | Blood | [facility], CORE [address] [facility] | | | [place] [address] | + + + + + | [...] | + + + | Blood | [facility], CORE [address] | | | [place] [address] | + + + + + | [...] [address] | | | [place] [address] | + + + CAPILLARY BLOOD GLUCOSE [...] [address] | | | [place] [address] | + + + CT ABDOMEN AND PELVIS WO IV CONTRAST (10/27/2017 5:38 PM) + + + | Specimen | Performing Laboratory | + + + | | [facility] VOICE RECOGNITION 2 | [...] AM Preliminary: Pham Arango | | MD rTacey Dictation initiated: Pham Webb MD 10/28/2017 8:42 [...] | Narrative | + + | EXAM: OK CHEST PICC [...] | Indications:Antibiotics and TPN Procedure location: Unit:[facility] Room: 4 Providers: | | Attending name: Attending physically present: No PICC Nurse name: Madiha Herrera RN | | Assisted by Tim Mendoza SAFETY ENGINEER PRESSURE VESSELS Pre-Procedure Consent: written consent obtained | | Consent given by: Next of kin Patient identity confirmed per protocol: Yes Team | | Pause: Immediatly prior to the procedure a pause per protocol was called. A pause | | verifies correct patient, procedure, equipment, print support specialist and site/side marked as | | required. [...] Brachial | | vein. Catheter lot number: [id number] with a length of 55 cm was [...] [address] | | | [place] [address] | + + + 12 LEAD ECG [...] Laboratory | + + + | | [facility] [address] [place] [address] | | | [place] [address] | + + + CAPILLARY BLOOD GLUCOSE [...] [address] | | | [place] [address] | + + + MAGNESIUM, PLASMA (10/27/2017 4:30 AM) + +-------+ + | Component | Value | Ref Range | + +-------+ + | MAGNESIUM,PLASMA | 1.9 | 1.6 - 2.6 mg/dL | + +-------+ + + + + | Specimen | Performing Laboratory | + + + | Blood | [facility], CORE [address] [facility] | | | [place], [place] [address] | + + + + + | [...] | >60 | >60 mL/min | | OMANI | | | + + + + | EGFR NON | >60 | >60 mL/min | | -OMANI | | | + + + + [...] | + + + | Blood | [facility], CORE [address] [facility] | | | [place] [address] | + + + + + | [...] [address] | | | [place] [address] | + + + CAPILLARY BLOOD GLUCOSE [...] [address] | | | [place] [address] | + + + CAPILLARY BLOOD GLUCOSE (NO CHG), POC (10/26/2017 5:57 AM) + +---------+ + | Component | Value | Ref Range | + +---------+ + | BLOOD GLUCOSE, POC | 102 (H) | 70 - 99 mg/dL | + +---------+ + + + + | Specimen | Performing Laboratory | + + + | | ALDANIELLE GENAO, POINT OF CARE TESTS [address] | | | [place] [address] | + + + MAGNESIUM, PLASMA (10/26/2017 5:13 AM) + +-------+ + | Component | Value | Ref Range | + +-------+ + | MAGNESIUM,PLASMA | 1.6 | 1.6 - 2.6 mg/dL | + +-------+ + + + + | Specimen | Performing Laboratory | + + + | Blood | [facility], CORE [address] [facility] | | | [place] [address] | + + + + + | [...] | >60 | >60 mL/min | | OMANI | | | + + + + | EGFR NON | >60 | >60 mL/min | | -OMANI | | | + + + + [...] | + + + | Blood | [facility], CORE [address] [facility] | | | [place] [address] | + + + + + | [...] [address] | | | [place] [address] | + + + BASIC METABOLIC SET [...] | >60 | >60 mL/min | | OMANI | | | + + + + | EGFR NON | >60 | >60 mL/min | | -OMANI | | | + + + + [...] | + + + | Blood | [facility], CORE [address] [facility] [address] | | | [place] [address] | + + + + + | [...] TESTS [address] | | | [place] [address] | + + + 12 LEAD ECG [...] Laboratory | + + + | | [facility] [address] [place] [address] | | | [place] [address] | + + + CAPILLARY BLOOD GLUCOSE [...] [address] | | | [place] [address] | + + + 12 LEAD ECG [...] Laboratory | + + + | | [facility] [address] [place] [address] | | | [place] [address] | + + + CALCIUM, IONIZED, WHOLE [...] | + + + | Blood | [facility], CORE [address] [place] [address] | | | [facility] [place] [place] [address] | + + + PREALBUMIN (10/24/2017 4:50 PM) + + + + | Component | Value | Ref Range | + + + + | PREALBUMIN | 14.7 (L) | 17.0 - 42.0 mg/dL | + + + + + + + | Specimen | Performing Laboratory | + + + | Blood | [facility] [address] [place], [place] | | | [address] | + + + C-REACTIVE PROTEIN (10/24/2017 4:45 PM) + + + + | Component | Value | Ref Range | + + + + | C-REACTIVE PROTEIN | 16.0 (H) | <10.0 mg/L | + + + + + + + | Specimen | Performing Laboratory | + + + | Blood | [facility], CORE [address] [facility] | | | [place] [address] | + + + + + | [...] | + + + | Blood | [facility], CORE [address] [facility] | | | [facility] [address] | + + + TRIGLYCERIDES, PLASMA (10/24/2017 4:45 PM) + +-------+ + | Component | Value | Ref Range | + +-------+ + | TRIGLYCERIDES | 93 | <150 mg/dL | + +-------+ + + + + | Specimen | Performing Laboratory | + + + | Blood | [facility], CORE [address] [facility] [address] | | | [place] [address] | + + + + + | [...] | + + + | Blood | [facility], CORE [address] [place] [address] | | | [place] [address] | + + + ALKALINE PHOSPHATASE, PLASMA (10/24/2017 4:45 PM) + +---------+ + | Component | Value | Ref Range | + +---------+ + | ALK PHOS | 200 (H) | 56 - 119 U/L | + +---------+ + + + + | Specimen | Performing Laboratory | + + + | Blood | [facility], CORE [address] | | | [place] [address] | + + + BILIRUBIN DIRECT (10/24/2017 [...] | + + + | Blood | [facility], CORE [address] | | | [place] [address] | + + + BILIRUBIN TOTAL (10/24/2017 [...] | + + + | Blood | [facility], [place] [address] | | | [place] [address] | + + + PHOSPHORUS, PLASMA (10/24/2017 4:45 PM) + +-------+ + | Component | Value | Ref Range | + +-------+ + | PHOSPHORUS, PLASMA | 3.2 | 2.4 - 4.7 mg/dL | | (LAB) | | | + +-------+ + + + + | Specimen | Performing Laboratory | + + + | Blood | [facility], CORE [address] [facility] | | | [place] [address] | + + + ALBUMIN, PLASMA (10/24/2017 4:45 PM) + +---------+ + | Component | Value | Ref Range | + +---------+ + | ALBUMIN, PLASMA | 2.6 (L) | 3.5 - 4.7 g/dL | | (LAB) | | | + +---------+ + + + + | Specimen | Performing Laboratory | + + + | Blood | [facility], CORE [address] [facility] | | | [place] [address] | + + + MAGNESIUM, PLASMA (10/24/2017 4:45 PM) + +-------+ + | Component | Value | Ref Range | + +-------+ + | MAGNESIUM,PLASMA | 1.7 | 1.6 - 2.6 mg/dL | + +-------+ + + + + | Specimen | Performing Laboratory | + + + | Blood | [facility], CORE [address] [facility] | | | [place] [address] | + + + + + | [...] | >60 | >60 mL/min | | OMANI | | | + + + + | EGFR NON | >60 | >60 mL/min | | -OMANI | | | + + + + [...] | + + + | Blood | [facility], CORE [address] | | | [place] [address] | + + + + + | [...] A pause verifies correct patient, procedure, equipment, print support specialist | | and site/side marked as required. [...] Arm area Basilic vein. Catheter lot number: [id number] with a length of 55 cm | [...] Laboratory | + + + | | [facility] VOICE RECOGNITION 2 | + + + + + | Narrative | + + | EXAM: OK CHEST 1 [...] [address] | | | [place] [address] | + + + PROCEDURE NOTE (10/24/2017 [...] Surgical Critical Care, PGY7 | | Pager: [phone] | + + CAPILLARY BLOOD GLUCOSE (NO [...] [address] | | | [place] [address] | + + + CAPILLARY BLOOD GLUCOSE (NO CHG), POC (10/24/2017 8:50 AM) + +-------+ + | Component | Value | Ref Range | + +-------+ + | BLOOD GLUCOSE, POC | 98 | 70 - 99 mg/dL | + +-------+ + + + + | Specimen | Performing Laboratory | + + + | | [facility], POINT OF CARE TESTS [address] | | | [place] [address] | + + + RENAL FUNCTION SET [...] | >60 | >60 mL/min | | OMANI | | | + + + + | EGFR NON | >60 | >60 mL/min | | -OMANI | | | + + + + [...] | + + + | Blood | [facility], [facility] [address] [facility] | | | [place] [address] | + + + + + | [...] | + + + | Blood | [facility], CORE [address] [facility] | | | [place] [address] | + + + + + | [...] [address] | | | [place] [address] | + + + CBC AND AUTO [...] | + + + | Blood | [facility], CORE [address] [facility] | | | [place] [address] | + + + + + | [...] | >60 | >60 mL/min | | OMANI | | | + + + + | EGFR NON | >60 | >60 mL/min | | -OMANI | | | + + + + [...] | + + + | Blood | [facility], CORE [address] [facility] | | | [place] [address] | + + + + + | [...] | ------ CBC AND AUTO | | DIFF[[id number]] Abnormal Final | | result Please view [...] Laboratory | + + + | | [facility] [address] [place] [address] | | | [place] [address] | + + + IR GASTROSTOMY TUBE EXCHANGE (10/22/2017 2:42 PM) + + + | Specimen | Performing Laboratory | + + + | | [facility] VOICE RECOGNITION | + + + + + | Narrative | + + | Procedure: Gastrostomy tube exchange Primary attending blister rust eradicator: Shade | | Bryn Goodwin Preoperative diagnosis: Malfunctioning Gastrostomy tube | | Postoperative diagnosis: Same Operations: Operation 1. Removal of existing | | Gastrostomy tube over a guide wire Operation 2. Placement of 24 Israeli GABRIEL | | gastrostomy over guide wire [...] | | glide wire the new 24 Israeli gastrostomy tube was inserted. The position of [...] Procedure: | | Gastrostomy tube exchangePrimary attending blister rust eradicator: Shade Goodwin, | | BrynPreoperative diagnosis: Malfunctioning Gastrostomy tubePostoperative diagnosis: | | SameOperations:Operation 1. Removal of existing Gastrostomy tube over a guide | | wireOperation 2. Placement of 24 Israeli GABRIEL gastrostomy over guide wireNo sedation was [...] glide wire the | | new 24 Israeli gastrostomy tube was inserted. The position of [...] stiff g lide wire the new 24 Israeli | |gastrostomy tube was inserted. The position [...] | + + + | | [facility] | + + + + [...] Note | + + | Service Account, Trusera In Interface - 10/22/2017 10:34 AM PDT [...] Laboratory | + + + | | [facility] [address] [facility] | | | [place] [address] | + + + CT ABDOMEN AND PELVIS W IV CONTRAST (10/22/2017 3:56 AM) + + + | Specimen | Performing Laboratory | + + + | | [facility] VOICE RECOGNITION 2 | [...] results were discussed with | | Dr. Talavear on 10/22/2017 4:30 AM by Dae Izaguirre [...] | + + + | Blood | [facility], CORE [address] [facility] | | | [place] [address] | + + + + + | [...] | >60 | >60 mL/min | | OMANI | | | + + + + | EGFR NON | >60 | >60 mL/min | | -OMANI | | | + + + + [...] | + + + | Blood | [facility], CORE [address] | | | [place] [address] | + + + + + | [...] | | ------ CBC (HEMOGRAM) | | ONLY[[id number]] Abnormal Final | | result Please view [...] Laboratory | + + + | | [facility] [address] [place] [address] | | | [place] [address] | + + + RENAL FUNCTION SET [...] | >60 | >60 mL/min | | OMANI | | | + + + + | EGFR NON | >60 | >60 mL/min | | -OMANI | | | + + + + [...] | + + + | Blood | [facility], [facility] [address] [facility] | | | [place] [address] | + + + + + | [...] + + + | Blood | [facility], CORE [address] [facility] | | | [place] [address] | + + + + + | [...] Laboratory | + + + | | [facility] [address] [facility] | | | [place] [address] | + + + MAGNESIUM, PLASMA (10/18/2017 9:01 AM) + +-------+ + | Component | Value | Ref Range | + +-------+ + | MAGNESIUM,PLASMA | 1.9 | 1.6 - 2.6 mg/dL | + +-------+ + + + + | Specimen | Performing Laboratory | + + + | Blood | [facility], [address] | | | [place] [address] | + + + + + | [...] | >60 | >60 mL/min | | OMANI | | | + + + + | EGFR NON | >60 | >60 mL/min | | -OMANI | | | + + + + [...] + + + | Blood | [facility], CORE [address] | | | [place] [address] | + + + + + | [...] Laboratory | + + + | | [facility] [address] [place] [address] | | | [place] [address] | + + + RENAL FUNCTION SET [...] | >60 | >60 mL/min | | OMANI | | | + + + + | EGFR NON | >60 | >60 mL/min | | -OMANI | | | + + + + [...] | + + + | Blood | [facility], CORE [address] | | | [place] [address] | + + + + + | [...] + + + | Blood | [facility], CORE [address] [facility] | | | [place] [address] | + + + + + | [...] Laboratory | + + + | | [facility] [address] [place] [address] | | | [place] [address] | + + + BASIC METABOLIC SET [...] | >60 | >60 mL/min | | OMANI | | | + + + + | EGFR NON | >60 | >60 mL/min | | -OMANI | | | + + + + [...] | + + + | Blood | [facility], C[facility] [address] [facility] | | | [place] [address] | + + + + + | [...] | + + + | Blood | [facility], CORE [address] [facility] | | | [place] [address] | + + + + + | [...] | | ------ CBC (HEMOGRAM) | | ONLY[[id number]] Abnormal Final | | result Please view results for these tests on the | | individual orders. | + + [facility] VENOUS DUPLEX LOWER EXTREMITY BILAT COMP (10/15/2017 3:08 PM) + + + | Specimen | Performing Laboratory | + + + | | [facility] | + + + + [...] Laboratory | + + + | | [facility] [address] [place] [address] | | | [place] [address] | + + + CAPILLARY BLOOD GLUCOSE [...] [address] | | | [place] [address] | + + + CBC (HEMOGRAM) ONLY [...] | + + + | Blood | [facility], CORE [address] [facility] | | | [place] [address] | + + + + + | [...] | | ------ CBC (HEMOGRAM) | | ONLY[[id number]] Abnormal Final | | result Please view [...] + + + | | SELENA PICKETT [facility]KO[facility], POINT OF CARE TESTS [address] | | | [place] [address] | + + + 12 LEAD ECG [...] Laboratory | + + + | | [facility] [address] [place] [address] | | | [place] [address] | + + + CBC (HEMOGRAM) ONLY [...] | + + + | Blood | [facility], CORE [address] [facility] | | | [place] [address] | + + + + + | [...] | >60 | >60 mL/min | | OMANI | | | + + + + | EGFR NON | >60 | >60 mL/min | | -OMANI | | | + + + + [...] | + + + | Blood | [facility], CORE [address] [place] [address] | | | [place] [address] | + + + + + | [...] | + + + | Blood | [facility], CORE [address] [facility] | | | [place] [address] | + + + + + | [...] | | ------ CBC (HEMOGRAM) | | ONLY[[id number]] Abnormal Final | | result Please view [...] Laboratory | + + + | | [facility], POINT OF CARE TESTS [address] | | | [place] [address] | + + + CAPILLARY BLOOD GLUCOSE [...] [address] | | | [place] [address] | + + + CBC (HEMOGRAM) ONLY [...] + + + | Blood | [facility], CORE [address] [facility] | | | [place] [address] | + + + + + | [...] | >60 | >60 mL/min | | OMANI | | | + + + + | EGFR NON | >60 | >60 mL/min | | -OMANI | | | + + + + [...] + + + | Blood | [facility], [facility] [address] [facility] | | | [place] [address] | + + + + + | [...] | | ------ CBC (HEMOGRAM) | | ONLY[[id number]] Abnormal Final | | result Please view results for these tests on the | | individual orders. | + + OPERATION RECORD (10/12/2017 8:50 PM) + + | Procedure Note | + + | Pilar Cotto MD - 10/12/2017 8:50 PM PDT Date of Service: 10/12/2017 | | Attending Surgeon: Chaz Munoz MD Administrative Receptionist(s): Randell Dixon M.D., | | fellow. George [...] saline. We then | | placed a 19-Israeli drain deep into the abscess cavity, tracking [...] 10/12/2017 19:50:06DT: 10/12/2017 20:50:54Job #: | | [id number] | + + X-RAY PORTABLE CHEST 1 VIEW (10/12/2017 7:50 PM) + + + | Specimen | Performing Laboratory | + + + | | [facility] VOICE RECOGNITION 2 | + + + + + | Narrative | + + | EXAM: OK CHEST 1 [...] [address] | | | [place] [address] | + + + CT ABDOMEN AND PELVIS W IV CONTRAST (10/12/2017 9:05 AM) + + + | Specimen | Performing Laboratory | + + + | | [facility] VOICE RECOGNITION 2 | [...] + + + | Blood | [facility], CORE [address] [facility] | | | [place] [address] | + + + + + | [...] | >60 | >60 mL/min | | OMANI | | | + + + + | EGFR NON | >60 | >60 mL/min | | -OMANI | | | + + + + [...] | + + + | Blood | [facility], CORE [address] [facility] | | | [facility] [place] [address] | + + + + + | [...] | | ------ CBC (HEMOGRAM) | | ONLY[[id number]] Abnormal Final | | result Please view [...] | + + + | Blood | [facility], CORE [address] [facility] [facility] | | | [place] [address] | + + + + + | [...] Laboratory | + + + | | [facility] [address] [facility] | | | [place] [address] | + + + 12 LEAD ECG [...] Laboratory | + + + | | [facility] [address] [place] [address] | | | [place] [address] | + + + CBC (HEMOGRAM) ONLY [...] | + + + | Blood | [facility], CORE [address] [facility] [address] | | | [place] [address] | + + + + + | [...] | + + + | Blood | [facility], CORE [address] [facility] | | | [place] [address] | + + + + + | [...] | >60 | >60 mL/min | | OMANI | | | + + + + | EGFR NON | >60 | >60 mL/min | | -OMANI | | | + + + + [...] | + + + | Blood | [facility], CORE [address] [facility] | | | [place] [address] | + + + + + | [...] | | ------ CBC (HEMOGRAM) | | ONLY[[id number]] Abnormal Final | | result Please view results for these tests on the | | individual orders. | + + PROCEDURE NOTE (10/10/2017 10:00 PM) + + | Narrative | + + | Darius Link MD 10/12/2017 11:11 AM OPERATIVE REPORT DATE OF | | OPERATION: 10/10/2017 ATTENDING SURGEON: 1. Dr. Munoz CLINICAL REHAB LIAISON: 1. Darius | | MD Nikolay INDICATIONS: Dysphagia and need for half-way nutrition access | | PREOPERATIVE DIAGNOSIS: 1.Dysphagia and need for half-way nutrition access | | POSTOPERATIVE DIAGNOSIS: 1.Same [...] to follow. | | [place] [id number] Chief Resident Neurosurgery | + + CBC [...] + + + | Blood | [facility], CORE [address] [facility] | | | [place] [address] | + + + + + [...] | | ------ CBC (HEMOGRAM) | | ONLY[[id number]] Abnormal Final | | result Please view [...] | >60 | >60 mL/min | | OMANI | | | + + + + | EGFR NON | >60 | >60 mL/min | | -OMANI | | | + + + + [...] | + + + | Blood | [facility], CORE [address] [facility] | | | [place], [place] [address] | + + + + + | [...] | + + + | Blood | [facility], CORE [address] [facility] | | | [place] [address] | + + + + + | Narrative | + + | Reference range change effective 12/11/16. | + + OPERATION RECORD (10/10/2017 12:40 PM) + + | Procedure Note | + + | Magdiel Stock MD - 10/10/2017 12:40 PM PDT Date of Service: 10/10/2017 Attending | | Surgeon: Magdiel Stock MD Administrative Receptionist(s): Cecilia Hernandez | | . Preoperative Diagnoses: [...] This is a 67-year-old male. Please see [facility] for full details. He | [...] | the note for this encounter.Sonal Nunez MDALDANIELLE [id number] [facility] | | [place] [phone] Orina, MDFAH/MODROSYD: | | 10/10/2017 11:52:15DT: 10/10/2017 12:40:41Job #: [id number] | | | | | |I was present for the critical portions of the procedure as described in the note for this encounter. | | | |Magdiel Stock MD | | | |Magdiel Stock MD | |[address] | |[address] [facility] [address] | |[facility] | |[place] [address] | |[phone] | | | | | |Magdiel Stock MD | |JAYLAN/DUC | | | | | | /[id number] | + + X-RAY ABDOMEN 1 VIEW [...] + + | Tissue - Head | [facility] [place] [address] [place], [place] | | | [address] | + + + + + | [...] + + | Swab - Head | [facility] [place] [address] [address] [place], [place] | | | [address] | + + + + + | [...] + + | Swab - Head | [facility] [address] [place], [place] | | | [address] | + + + + + | [...] + + | Swab - Head | [facility] [address] [place] [address] | | | [address] | + + + + + | Narrative | + + | Culture Report: No acid fast bacteria isolated at 6 weeks. AFB Smear: AFB not | | detected | + + CULTURE, FUNGAL EXCEPT BLOOD, SKIN, HAIR, NAIL (10/10/2017 9:00 AM) + + + | Specimen | Performing Laboratory | + + + | Swab - Head | [facility] [place] [address] [address] [facility], [place] | | | [address] | + + + + + | [...] + + | Swab - Head | [facility] [address] [place], [place] | | | [address] | + + + + + | [...] | Swab - Head | [facility] [place] [address] [place], [place] | | | [address] | + + + + + | [...] - Head | [facility] [address] [place], [place] | | | [address] | + + + + + | [...] Head | [facility] [place] [address] [place], [place] | | | [address] | + + + + + | [...] + + | Swab - Head | [facility] [address] [place], [place] | | | [address] | + + + + + | [...] + + | Swab - Head | [facility] [place] [address] [place], [place] | | | [address] | + + + + + | [...] - Head | [facility] [place] [address] [address] [place], [place] | | | [address] | + + + + + | Narrative | + + | Culture Report: No acid fast bacteria isolated at 6 weeks. AFB Smear: AFB not | | detected | + + CULTURE, FUNGAL EXCEPT BLOOD, SKIN, HAIR, NAIL (10/10/2017 8:38 AM) + + + | Specimen | Performing Laboratory | + + + | Swab - Head | [facility] [place] [address] [place], [place] | | | [address] | + + + + + | [...] + + | Swab - Head | [facility] [address] [place], [place] | | | [address] | + + + + + | [...] + + | Swab - Head | [facility] [address] [place], [place] | | | [address] | + + + + + | Narrative | + + | Culture Report: No acid fast bacteria isolated at 6 weeks. AFB Smear: AFB not | | detected | + + CULTURE, FUNGAL EXCEPT BLOOD, SKIN, HAIR, NAIL (10/10/2017 8:31 AM) + + + | Specimen | Performing Laboratory | + + + | Swab - Head | [facility] [place] [address] [place], [place] | | | [address] | + + + + + | [...] + + | Swab - Head | [facility] [address] [place], [place] | | | [address] | + + + + + | [...] + + | Swab - Head | [facility] [address] [place] [address] | | | [address] | + + + + + | [...] necessary, edited the report. I agree with [facility] report as now presented. | | [...] | + + + | Blood | [facility], CORE [address] [place] [address] | | | [place] [address] | + + + CBC (HEMOGRAM) ONLY [...] | + + + | Blood | [facility] [address] [facility] | | | [place] [address] | + + + + + | [...] | | ------ CBC (HEMOGRAM) | | ONLY[[id number]] Abnormal Final | | result Please view [...] | + + + | Blood | [facility], CORE [address] [facility] | | | [place] [address] | + + + + + | [...] | >60 | >60 mL/min | | OMANI | | | + + + + | EGFR NON | >60 | >60 mL/min | | -OMANI | | | + + + + [...] | + + + | Blood | [facility], CORE [address] | | | [place] [address] | + + + + + | [...] Laboratory | + + + | | [facility] [address] [place] [address] | | | [place] [address] | + + + PRODUCT - RED CELLS LEUKOREDUCED (10/09/2017 5:12 PM) + + + + | Component | Value | Ref Range | + + + + | PRODUCT DESCRIPTION | -1 RED BLOOD CELL ADENINE-SALINE ADDED | | | | LEUKOCYTE | | + + + + | PRODUCT UNIT # | [id number] | | + + + + | UNIT ABO | O | | + + + + | UNIT RH | POS | | + + + + | STATUS OF UNIT | Returned to Blood Bank | | + + + + | EXPIRATION DATE | [phone] | | + + + + | BLOOD TYPE BARCODE | 5100 | | + + + + | BLOOD PRODUCT CODE | [id number] | | + + + + + + + | Specimen | Performing Laboratory | + + + | | [facility], TRANSF[facility]ION MEDICINE [address] [facility] | | | [place] [address] | + + + PRODUCT - RED CELLS LEUKOREDUCED (10/09/2017 5:12 PM) + + + + | Component | Value | Ref Range | + + + + | PRODUCT DESCRIPTION | -1 RED BLOOD CELL ADENINE-SALINE ADDED | | | | LEUKOCYTE | | + + + + | PRODUCT UNIT # | [id number] | | + + + + | UNIT ABO | O | | + + + + | UNIT RH | POS | | + + + + | STATUS OF UNIT | Returned to Blood Bank | | + + + + | EXPIRATION DATE | [phone] | | + + + + | BLOOD TYPE BARCODE | 5100 | | + + + + | BLOOD PRODUCT CODE | [id number] | | + + + + + + + | Specimen | Performing Laboratory | + + + | | [facility], [facility] [address] [facility] | | | [place] [facility] [address] | + + + ANTIBODY IDENTIFICATION (10/09/2017 5:01 PM) + + + + | Component | Value | Ref Range | + + + + | ANTIBODY 1 | Antibody present, unable to identify | | + + + + + + + | Specimen | Performing Laboratory | + + + | Blood | [facility], TRANSFUSION MEDICINE [address] [place] [address] | | | [place] [address] | + + + ANTIBODY SCREEN (10/09/2017 5:01 PM) + + + + | Component | Value | Ref Range | + + + + | Antibody Screen | Positive | | + + + + + + + | Specimen | Performing Laboratory | + + + | Blood | [facility], TRANSFUSION MEDICINE [address] [facility] | | | [place] [address] | + + + ABO & RH [...] + + + | Blood | [facility], TRANSF[facility]ION MEDICINE [address] [place] [address] | | | [place] [address] | + + + TYPE AND SCREEN [...] | ------ ABO & RH | | TYPE[[id number]] F | | inal result ANTIBODY | | SCREEN[[id number]] Fin | | al result Please view [...] | + + + | Blood | [facility], CORE [address] [facility] | | | [place] [address] | + + + + + | [...] + | | [facility] [address] [place] [address] | | | [facility] [address] | + + + VASC LAB VENOUS [...] | + + | Service Account, Kostas RuffWire In Interface - 10/08/2017 10:47 AM PDT [...] Laboratory | + + + | | [facility] - [facility], POINT OF CARE TESTS [address] | | | [place] [address] | + + + CBC (HEMOGRAM) ONLY [...] | + + + | Blood | [facility], CORE [address] [facility] | | | [place] [address] | + + + + + | [...] + + + | Blood | [facility], CORE [address] [facility] | | | [place] [address] | + + + + + | [...] | | ------ CBC (HEMOGRAM) | | ONLY[[id number]] Abnormal Final | | result Please view [...] | >60 | >60 mL/min | | OMANI | | | + + + + | EGFR NON | >60 | >60 mL/min | | -OMANI | | | + + + + [...] | + + + | Blood | [facility], CORE [address] [facility] | | | [place] [address] | + + + + + | [...] Laboratory | + + + | | [facility], POINT OF CARE TESTS [address] | | | [place] [address] | + + + CAPILLARY BLOOD GLUCOSE [...] [address] | | | [place] [address] | + + + CAPILLARY BLOOD GLUCOSE [...] [address] | | | [place] [address] | + + + CAPILLARY BLOOD GLUCOSE (NO CHG), POC (10/07/2017 11:43 AM) + +---------+ + | Component | Value | Ref Range | + +---------+ + | BLOOD GLUCOSE, POC | 142 (H) | 70 - 99 mg/dL | + +---------+ + + + + | Specimen | Performing Laboratory | + + + | | [facility], POINT OF CARE TESTS [address] | | | [place] [address] | + + + CAPILLARY BLOOD GLUCOSE [...] [address] | | | [place] [address] | + + + CBC (HEMOGRAM) ONLY [...] | + + + | Blood | [facility], [facility] [address] [facility] | | | [place] [address] | + + + + + | [...] + + + | Blood | [facility], CORE [address] [facility] | | | [place] [address] | + + + + + [...] | | ------ CBC (HEMOGRAM) | | ONLY[[id number]] Abnormal Final | | result Please view [...] | >60 | >60 mL/min | | OMANI | | | + + + + | EGFR NON | >60 | >60 mL/min | | -OMANI | | | + + + + [...] | + + + | Blood | [facility], CORE [address] [facility] | | | [facility] [place] [address] | + + + + + | [...] Laboratory | + + + | | [facility], POINT OF CARE TESTS [address] | | | [place] [address] | + + + CAPILLARY BLOOD GLUCOSE [...] [address] | | | [place] [address] | + + + 12 LEAD ECG [...] Laboratory | + + + | | [facility] [address] [place] [address] | | | [place] [address] | + + + CAPILLARY BLOOD GLUCOSE (NO CHG), POC (10/06/2017 12:03 PM) + +-------+ + | Component | Value | Ref Range | + +-------+ + | BLOOD GLUCOSE, POC | 87 | 70 - 99 mg/dL | + +-------+ + + + + | Specimen | Performing Laboratory | + + + | | ALDANIELLE PICKETT [facility]KO[facility], POINT OF CARE TESTS [address] | | | [place] [address] | + + + CBC (HEMOGRAM) ONLY [...] | + + + | Blood | [facility], CORE [address] [place] [address] | | | [place] [address] | + + + + + | [...] + + + | Blood | [facility], CORE [address] [facility] | | | [place] [address] | + + + + + | [...] | | ------ CBC (HEMOGRAM) | | ONLY[[id number]] Abnormal Final | | result Please view [...] | >60 | >60 mL/min | | OMANI | | | + + + + | EGFR NON | >60 | >60 mL/min | | -OMANI | | | + + + + [...] | + + + | Blood | [facility], CORE [address] | | | [place] [address] | + + + + + | [...] Laboratory | + + + | | ALDANIELLE PIYUSH [facility] TESTS [address] | | | [place] [address] | + + + CAPILLARY BLOOD GLUCOSE (NO CHG), POC (10/06/2017 1:04 AM) + +-------+ + | Component | Value | Ref Range | + +-------+ + | BLOOD GLUCOSE, POC | 91 | 70 - 99 mg/dL | + +-------+ + + + + | Specimen | Performing Laboratory | + + + | | SELENA EGNAO, POINT OF CARE TESTS [address] | | | [place] [address] | + + + CAPILLARY BLOOD GLUCOSE [...] [address] | | | [place] [address] | + + + CAPILLARY BLOOD GLUCOSE [...] [address] | | | [place] [address] | + + + 12 LEAD ECG [...] Laboratory | + + + | | [facility] [address] [place] [address] | | | [place] [address] | + + + CBC (HEMOGRAM) ONLY [...] + + + | Blood | [facility], CORE [address] | | | [place] [address] | + + + + + | [...] | + + + | Blood | [facility], CORE [address] [facility] | | | [place] [address] | + + + + + | [...] | | ------ CBC (HEMOGRAM) | | ONLY[[id number]] Abnormal Final | | result Please view [...] | >60 | >60 mL/min | | OMANI | | | + + + + | EGFR NON | >60 | >60 mL/min | | -OMANI | | | + + + + [...] | + + + | Blood | [facility], CORE [address] [place] [address] | | | [place] [address] | + + + + + | [...] + + + | | [facility] TESTS [address] | | | [place] [address] | + + + CAPILLARY BLOOD GLUCOSE [...] [address] | | | [place] [address] | + + + CAPILLARY BLOOD GLUCOSE [...] [address] | | | [place] [address] | + + + CAPILLARY BLOOD GLUCOSE (NO CHG), POC (10/04/2017 12:30 PM) + +---------+ + | Component | Value | Ref Range | + +---------+ + | BLOOD GLUCOSE, POC | 137 (H) | 70 - 99 mg/dL | + +---------+ + + + + | Specimen | Performing Laboratory | + + + | | [facility]ANIELLE - PIYUSH TE[facility]A, POINT OF CARE TESTS [address] | | | [place] [address] | + + + CAPILLARY BLOOD GLUCOSE [...] [address] | | | [place] [address] | + + + CBC (HEMOGRAM) ONLY [...] + + + | Blood | [facility], CORE [address] | | | [place] [address] | + + + + + | [...] | + + + | Blood | [facility], CORE [address] [place] [address] | | | [place] [address] | + + + + + | [...] | | ------ CBC (HEMOGRAM) | | ONLY[[id number]] Abnormal Final | | result Please view [...] | >60 | >60 mL/min | | OMANI | | | + + + + | EGFR NON | >60 | >60 mL/min | | -OMANI | | | + + + + [...] | + + + | Blood | [facility], CORE [address] [facility] | | | [place] [address] | + + + + + | [...] [address] | | | [place] [address] | + + + CAPILLARY BLOOD GLUCOSE [...] [address] | | | [place] [address] | + + + URINE, MICROSCOPIC EXAM [...] + | Urine - Clean catch | [facility], CORE [address] | | | [place] [address] | + + + RPR SERUM (10/03/2017 3:36 PM) + + + + | Component | Value | Ref Range | + + + + | RPR SRM QUAL | Non ReactiveComment: Rapid Plasma Reagin | Non Reactive | | | screening test is Non-Reactive. No further | | | | reflex testing is required.Performed by | | | | [email or web address],[address] [place] [address] | | | | [id number] lpj[employer], Gui | | | | MD Arcadio, Lab. Director | | | |[email or web address].[employer], Gui Ervin MD, Lab. Director | | + + + + + + + | Specimen | Performing Laboratory | + + + | Blood | [facility] [address] [facility] | | | [place] [address] | + + + VITAMIN B-12 (10/03/2017 [...] | + + + | Blood | [facility], CORE [address] [facility] | | | [facility] [address] | + + + TSH (10/03/2017 3:36 PM) + + + + | Component | Value | Ref Range | + + + + | TSH | 0.33 (L) | 0.46 - 5.56 mIU/L | + + + + + + + | Specimen | Performing Laboratory | + + + | Blood | [facility], [facility] [address] | | | [place] [address] | + + + + + | [...] | + + + | Blood | [facility], SPECIAL [facility] + COA [address] [facility] | | | [place] [address] | + + + + + | Narrative | + + | HIV-1 p24 Ag and HIV-1,2 Ab not detected. Test modified from original | | senior sas programmer's approved specifications. The performance of the [employer] MACHINE [employer]PER[employer] HIV Combo | | test, with or [...] SELENA GENAO, [facility] [address] | | | [place] [address] | + + + CAPILLARY BLOOD GLUCOSE [...] [address] | | | [place] [address] | + + + CBC (HEMOGRAM) ONLY [...] | + + + | Blood | [facility], CORE [address] [facility] | | | [place] [address] | + + + + + | [...] | + + + | Blood | [facility], CORE [address] [facility] | | | [place] [address] | + + + + + | [...] | | ------ CBC (HEMOGRAM) | | ONLY[[id number]] Abnormal Final | | result Please view [...] | >60 | >60 mL/min | | OMANI | | | + + + + | EGFR NON | >60 | >60 mL/min | | -OMANI | | | + + + + [...] | + + + | Blood | [facility], [facility] [address] [facility] [address] [facility] | | | [place] [address] | + + + + + | [...] + + + | | SELENA PIYUSH TEKOA, POINT OF CARE TESTS [address] | | | [place] [address] | + + + X-RAY SPINE CERVICAL [...] Laboratory | + + + | | [facility], POINT OF CARE TESTS [address] | | | [place] [address] | + + + 12 LEAD ECG [...] Laboratory | + + + | | [facility]OLOG[facility] [address] [place] [address] | | | [place] [address] | + + + PROCEDURE NOTE (10/02/2017 [...] Laboratory | + + + | | [facility] RADIOLOGY VOICE RECOGNITION 2 | + + + + + | Narrative | + + | EXAM: OK CHEST 1 [...] Note | + + | Service Account, [employer] Res In Interface - 10/02/2017 2:07 PM [...] [address] | | | [place] [address] | + + + X-RAY PORTABLE CHEST 1 VIEW (10/02/2017 8:56 AM) + + + | Specimen | Performing Laboratory | + + + | | [facility] RADIOLOGY VOICE RECOGNITION 2 | + + + + + | Narrative | + + | EXAM: OK CHEST 1 [...] Note | + + | Service Account, [employer] Res In Interface - 10/02/2017 10:27 AM [...] MD 10/02/2017 10:26 AM | |Preliminary: Marcelo Morlye MD | |Dictation initiated: Marcelo Morley MD [...] POINT OF CARE TESTS [address] | | | [place] [address] | + + + CBC (HEMOGRAM) ONLY [...] + + + | Blood | [facility], CORE [address] [facility] | | | [place] [address] | + + + + + | [...] | + + + | Blood | [facility], CORE [address] [facility] | | | [place] [address] | + + + + + | [...] | | ------ CBC (HEMOGRAM) | | ONLY[[id number]] Abnormal Final | | result Please view [...] | >60 | >60 mL/min | | OMANI | | | + + + + | EGFR NON | >60 | >60 mL/min | | -OMANI | | | + + + + [...] + + + | Blood | [facility], CORE [address] [facility] | | | [place] [address] | + + + + + | [...] [address] | | | [place] [address] | + + + CAPILLARY BLOOD GLUCOSE (NO CHG), POC (10/01/2017 7:31 PM) + +---------+ + | Component | Value | Ref Range | + +---------+ + | BLOOD GLUCOSE, POC | 104 (H) | 70 - 99 mg/dL | + +---------+ + + + + | Specimen | Performing Laboratory | + + + | | SELENA PICKETT TEKOA, POINT OF CARE TESTS [address] | | | [place] [address] | + + + X-RAY ABD LTD [...] [address] | | | [place] [address] | + + + VASC LAB VENOUS DUPLEX LOWER EXTREMITY BILAT COMP (10/01/2017 11:14 AM) + + + | Specimen | Performing Laboratory | + + + | | [facility] RADIOLOGY VASC US | + [...] [address] | | | [place] [address] | + + + CBC (HEMOGRAM) ONLY [...] | + + + | Blood | [facility], CORE [address] [facility] | | | [place] [address] | + + + + + | [...] | + + + | Blood | [facility], CORE [address] [place] [address] | | | [place] [address] | + + + + + | [...] | | ------ CBC (HEMOGRAM) | | ONLY[[id number]] Abnormal Final | | result Please view [...] | >60 | >60 mL/min | | OMANI | | | + + + + | EGFR NON | >60 | >60 mL/min | | -OMANI | | | + + + + [...] | + + + | Blood | [facility], CORE [address] [facility] | | | [place] [address] | + + + + + | [...] [address] | | | [place] [address] | + + + CAPILLARY BLOOD GLUCOSE (NO CHG), POC (09/30/2017 6:01 PM) + +---------+ + | Component | Value | Ref Range | + +---------+ + | BLOOD GLUCOSE, POC | 102 (H) | 70 - 99 mg/dL | + +---------+ + + + + | Specimen | Performing Laboratory | + + + | | [facility], POINT OF CARE TESTS [address] | | | [place] [address] | + + + 12 LEAD ECG [...] | + + + | | [facility] [address] [place] [address] | | | [place] [address] | + + + CT HEAD WO [...] now presented. | | | |Final signature: Ccei Phillips MD 09/30/2017 1:27 PM | |Preliminary: [...] Laboratory | + + + | | [facility] PIYUSH TEKO[facility], POINT OF CARE TESTS [address] | | | [place] [address] | + + + CAPILLARY BLOOD GLUCOSE [...] [address] | | | [place] [address] | + + + CBC (HEMOGRAM) ONLY [...] | + + + | Blood | [facility], CORE [address] [facility] | | | [place] [address] | + + + + + | [...] | + + + | Blood | [facility], CORE [address] [facility] | | | [place] [address] | + + + + + | [...] | | ------ CBC (HEMOGRAM) | | ONLY[[id number]] Abnormal Final | | result Please view [...] | >60 | >60 mL/min | | OMANI | | | + + + + | EGFR NON | >60 | >60 mL/min | | -OMANI | | | + + + + [...] | + + + | Blood | [facility], CORE [address] [place] [address] | | | [place] [address] | + + + + + | [...] Laboratory | + + + | | [facility], POINT OF CARE TESTS [address] | | | [place] [address] | + + + CAPILLARY BLOOD GLUCOSE (NO CHG), POC (09/29/2017 5:53 PM) + +---------+ + | Component | Value | Ref Range | + +---------+ + | BLOOD GLUCOSE, POC | 124 (H) | 70 - 99 mg/dL | + +---------+ + + + + | Specimen | Performing Laboratory | + + + | | SLEENA GENAO POINT OF CARE TESTS [address] | | | [place] [address] | + + + CAPILLARY BLOOD GLUCOSE [...] [address] | | | [place] [address] | + + + 12 LEAD ECG [...] Laboratory | + + + | | [facility] [address] [facility] | | | [place] [address] | + + + CAPILLARY BLOOD GLUCOSE [...] PIYUSH GENAO, POINT OF CARE TESTS [address] [facility] | | | [place] [address] | + + + MAGNESIUM, PLASMA (09/29/2017 4:30 AM) + +-------+ + | Component | Value | Ref Range | + +-------+ + | MAGNESIUM,PLASMA | 2.1 | 1.6 - 2.6 mg/dL | + +-------+ + + + + | Specimen | Performing Laboratory | + + + | Blood | [facility], CORE [address] [facility] | | | [place] [address] | + + + + + | [...] | >60 | >60 mL/min | | OMANI | | | + + + + | EGFR NON | >60 | >60 mL/min | | -OMANI | | | + + + + [...] | + + + | Blood | [facility], CORE [address] [facility] | | | [place] [address] | + + + + + | [...] | + + + | Blood | [facility], CORE [address] [facility] | | | [place] [address] | + + + + + | [...] | | ------ CBC (HEMOGRAM) | | ONLY[[id number]] Abnormal Final | | result Please view [...] TESTS [address] | | | [place] [address] | + + + CAPILLARY BLOOD GLUCOSE (NO CHG), POC (09/28/2017 5:26 PM) + +---------+ + | Component | Value | Ref Range | + +---------+ + | BLOOD GLUCOSE, POC | 112 (H) | 70 - 99 mg/dL | + +---------+ + + + + | Specimen | Performing Laboratory | + + + | | SELENA PICKETT TEKOA, POINT OF CARE TESTS [address] | | | [place] [address] | + + + CAPILLARY BLOOD GLUCOSE [...] TESTS [address] | | | [place] [address] | + + + 12 LEAD ECG [...] Laboratory | + + + | | [facility] [address] [place] [address] | | | [place] [address] | + + + CAPILLARY BLOOD GLUCOSE [...] TESTS [address] | | | [place] [address] | + + + CBC (HEMOGRAM) ONLY [...] | + + + | Blood | [facility], CORE [address] [facility] | | | [place] [address] | + + + + + | [...] | + + + | Blood | [facility], [facility] [address] [facility] | | | [place] [address] | + + + + + | [...] | | ------ CBC (HEMOGRAM) | | ONLY[[id number]] Abnormal Final | | result Please view [...] | >60 | >60 mL/min | | OMANI | | | + + + + | EGFR NON | >60 | >60 mL/min | | -OMANI | | | + + + + [...] | + + + | Blood | [facility], [facility] [address] [facility] | | | [place] [address] | + + + + + | [...] [address] | | | [place] [address] | + + + CAPILLARY BLOOD GLUCOSE [...] PIYUSH GENAO, POINT OF CARE TESTS [address] | | | [place] [address] | + + + MODIFIED BARIUM SWALLOWING [...] Note | + + | Service Account, [employer] In Interface - 09/27/2017 2:19 PM [...] poorly cleared with dry swallows. Please see [facility] pathology report for full details | | [...] Laboratory | + + + | | [facility], POINT OF CARE TESTS [address] | | | [place] [address] | + + + CAPILLARY BLOOD GLUCOSE [...] [address] | | | [place] [address] | + + + CBC (HEMOGRAM) ONLY [...] | + + + | Blood | [facility], CORE [address] [address] | | | [place] [address] | + + + + + | [...] | | ------ CBC (HEMOGRAM) | | ONLY[[id number]] Abnormal Final | | result Please view [...] + + + | Blood | [facility], CORE [address] [place] [address] | | | [place] [address] | + + + + + | [...] | >60 | >60 mL/min | | OMANI | | | + + + + | EGFR NON | >60 | >60 mL/min | | -OMANI | | | + + + + [...] | + + + | Blood | [facility], [facility] [address] | | | [place] [address] | + + + + + | [...] [address] | | | [place] [address] | + + + CAPILLARY BLOOD GLUCOSE (NO CHG), POC (09/26/2017 5:32 PM) + +---------+ + | Component | Value | Ref Range | + +---------+ + | BLOOD GLUCOSE, POC | 130 (H) | 70 - 99 mg/dL | + +---------+ + + + + | Specimen | Performing Laboratory | + + + | | [facility] - PIYUSH TEKOA, POINT OF CARE TESTS [address] | | | [place] [address] | + + + 12 LEAD ECG [...] Laboratory | + + + | | [facility] DEPT OF CARDIOLOGY [address] [place] [address] | | | [place] [address] | + + + CAPILLARY BLOOD GLUCOSE [...] [address] | | | [place] [address] | + + + CAPILLARY BLOOD GLUCOSE (NO CHG), POC (09/26/2017 9:22 AM) + +---------+ + | Component | Value | Ref Range | + +---------+ + | BLOOD GLUCOSE, POC | 119 (H) | 70 - 99 mg/dL | + +---------+ + + + + | Specimen | Performing Laboratory | + + + | | [facility] POINT OF CARE TESTS [address] | | | [place] [address] | + + + CAPILLARY BLOOD GLUCOSE [...] [address] | | | [place] [address] | + + + CBC (HEMOGRAM) ONLY [...] | + + + | Blood | [facility], [facility] [address] [facility] | | | [place] [address] | + + + + + | [...] | + + + | Blood | [facility], CORE [address] [place] [address] | | | [place] [address] | + + + + + | [...] | | ------ CBC (HEMOGRAM) | | ONLY[[id number]] Abnormal Final | | result Please view [...] | >60 | >60 mL/min | | OMANI | | | + + + + | EGFR NON | >60 | >60 mL/min | | -OMANI | | | + + + + [...] | + + + | Blood | [facility], CORE [address] [facility] | | | [place] [address] | + + + + + | [...] + | | SELENA GENAO, POINT OF [facility] TESTS [address] | | | [place] [address] | + + + MRI BRAIN WWO CONTRAST (09/25/2017 6:54 AM) + + + | Specimen | Performing Laboratory | + + + | | [facility] RADIOLOGY VOICE RECOGNITION 2 | [...] | + + + | Blood | [facility], CORE [address] [facility] | | | [place] [address] | + + + + + | [...] | + + + | Blood | [facility], CORE [address] [facility] | | | [place] [address] | + + + + + | [...] | | ------ CBC (HEMOGRAM) | | ONLY[[id number]] Abnormal Final | | result Please view [...] | >60 | >60 mL/min | | OMANI | | | + + + + | EGFR NON | >60 | >60 mL/min | | -OMANI | | | + + + + [...] | + + + | Blood | [facility], CORE [address] [facility] | | | [place] [address] | + + + + + | [...] + | | [facility] DEPT OF CARDIOLOGY [address] [place] [address] | | | [place] [address] | + + + MODIFIED BARIUM SWALLOWING [...] Laboratory | + + + | | [facility] RAD[facility]OLOGY [facility] US | + + + [...] Note | + + | Service Account, [employer] In Interface - 09/24/2017 4:09 PM PDT [...] | + + + | Blood | [facility], CORE [address] | | | [place] [address] | + + + + + | [...] | >60 | >60 mL/min | | OMANI | | | + + + + | EGFR NON | >60 | >60 mL/min | | -OMANI | | | + + + + [...] + + + | Blood | [facility], CORE [address] | | | [place] [address] | + + + + + | [...] | + + + | Blood | [facility], CORE [address] | | | [place] [address] | + + + + + | [...] | | ------ CBC (HEMOGRAM) | | ONLY[[id number]] Abnormal Final | | result Please view [...] | + + + | Blood | [facility], CORE [address] | | | [place] [address] | + + + + + | [...] + + + | Blood | [facility], CORE [address] | | | [place] [address] | + + + + + | [...] | | ------ CBC (HEMOGRAM) | | ONLY[[id number]] Abnormal Final | | result Please view [...] | >60 | >60 mL/min | | OMANI | | | + + + + | EGFR NON | >60 | >60 mL/min | | -OMANI | | | + + + + [...] | + + + | Blood | [facility], [facility] [address] | | | [place] [address] | + + + + + | [...] Laboratory | + + + | | [facility] PIYUSH TEKO[facility], POINT OF CARE TESTS [address] | | | [place] [address] | + + + CAPILLARY BLOOD GLUCOSE (NO CHG), POC (09/22/2017 1:29 PM) + +---------+ + | Component | Value | Ref Range | + +---------+ + | BLOOD GLUCOSE, POC | 113 (H) | 70 - 99 mg/dL | + +---------+ + + + + | Specimen | Performing Laboratory | + + + | | [facility] PIYUSH TEKO[facility] POINT OF [facility] TESTS [address] | | | [place] [address] | + + + CT HEAD WO [...] Note | + + | Service Account, [employer] In Interface - 09/22/2017 4:25 PM [...] + + + | Blood | [facility], CORE [address] | | | [place] [address] | + + + 12 LEAD ECG [...] Laboratory | + + + | | [facility] [address] [place] [address] | | | [place] [address] | + + + CBC (HEMOGRAM) ONLY [...] | + + + | Blood | [facility], CORE [address] [facility] | | | [place] [address] | + + + + + | [...] | + + + | Blood | [facility], [facility] [address] [facility] | | | [place] [address] | + + + + + | [...] | >60 | >60 mL/min | | OMANI | | | + + + + | EGFR NON | >60 | >60 mL/min | | -OMANI | | | + + + + [...] | + + + | Blood | [facility], CORE [address] [facility] | | | [place] [address] | + + + + + | [...] TESTS [address] | | | [place] [address] | + + + CT HEAD WO [...] | + + + | Blood | [facility], CORE [address] [facility] | | | [place] [address] | + + + + + | [...] | + + + | Blood | [facility], CORE [address] [facility] | | | [place] [address] | + + + + + | [...] | | ------ CBC (HEMOGRAM) | | ONLY[[id number]] Abnormal Final | | result Please view [...] | >60 | >60 mL/min | | OMANI | | | + + + + | EGFR NON | >60 | >60 mL/min | | -OMANI | | | + + + + [...] | + + + | Blood | [facility], [facility] [address] [facility] [address] [facility] [address] | | | [place] [address] | + + + + + | [...] Laboratory | + + + | | [facility] RADIOLOGY VOICE RECOGNITION 2 | [...] Note | + + | Service Account, [employer] In Interface - 09/20/2017 7:50 PM PDT [...] Laboratory | + + + | | [facility] RAD[facility] VOICE RECOGNITION 2 | [...] Laboratory | + + + | | [facility] VOICE RECOGNITION 2 | [...] Laboratory | + + + | | [facility] RAD[facility] VOICE RECOGNITION 2 | [...] Laboratory | + + + | | [facility] [address] [place] [address] | | | [place] [address] | + + + CBC (HEMOGRAM) ONLY [...] | + + + | Blood | [facility], CORE [address] [facility] | | | [place] [address] | + + + + + | [...] | + + + | Blood | [facility], CORE [address] [facility] | | | [place] [address] | + + + + + | [...] | | ------ CBC (HEMOGRAM) | | ONLY[[id number]] Abnormal Final | | result Please view [...] | >60 | >60 mL/min | | OMANI | | | + + + + | EGFR NON | >60 | >60 mL/min | | -OMANI | | | + + + + [...] | + + + | Blood | [facility], CORE [address] [place] [address] | | | [place] [address] | + + + + + | [...] | + + + | Blood | [facility], CORE [address] [facility] | | | [place] [address] | + + + + + | [...] | + + + | Blood | [facility], CORE [address] [facility] | | | [place] [address] | + + + + + | [...] | | ------ CBC (HEMOGRAM) | | ONLY[[id number]] Abnormal Final | | result Please view [...] | >60 | >60 mL/min | | OMANI | | | + + + + | EGFR NON | >60 | >60 mL/min | | -OMANI | | | + + + + [...] | + + + | Blood | [facility], CORE [address] [facility] | | | [place] [address] | + + + + + | [...] | + + + | Blood | [facility], [address] | | | [place] [address] | + + + + + | [...] + + + | Blood | [facility], CORE [address] [facility] | | | [place] [address] | + + + + + | [...] | | ------ CBC (HEMOGRAM) | | ONLY[[id number]] Abnormal Final | | result Please view [...] | >60 | >60 mL/min | | OMANI | | | + + + + | EGFR NON | >60 | >60 mL/min | | -OMANI | | | + + + + [...] | + + + | Blood | [facility], CORE [address] [facility] | | | [place] [address] | + + + + + | [...] | + + + | | [facility] US | + + + + [...] Note | + + | Service Account, [employer] In Interface - 09/17/2017 11:53 AM PDT [...] + + + | Blood | [facility], CORE [address] [facility] | | | [place] [address] | + + + + + | [...] | + + + | Blood | [facility], CORE [address] | | | [place] [address] | + + + + + | [...] | | ------ CBC (HEMOGRAM) | | ONLY[[id number]] Abnormal Final | | result Please view [...] | >60 | >60 mL/min | | OMANI | | | + + + + | EGFR NON | >60 | >60 mL/min | | -OMANI | | | + + + + [...] | + + + | Blood | [facility], CORE [address] [facility] | | | [place] [address] | + + + + + | [...] | Narrative | + + | EXAM: OK CHEST PICC [...] Note | + + | Service Account, [employer] Res In Interface - 09/16/2017 1:34 PM [...] Laboratory | + + + | | [facility] RADIOLOGY VOICE RECOGNITION | + + + + + | Narrative | + + | EXAM: OK CHEST PICC [...] Note | + + | Service Account, [employer] Res In Interface - 09/16/2017 11:41 AM [...] | + + + | Blood | [facility], CORE [address] [place] [address] | | | [place] [address] | + + + + + | [...] + + + | Blood | [facility], CORE [address] [facility] | | | [place] [address] | + + + + + | [...] | | ------ CBC (HEMOGRAM) | | ONLY[[id number]] Abnormal Final | | result Please view [...] | >60 | >60 mL/min | | OMANI | | | + + + + | EGFR NON | >60 | >60 mL/min | | -OMANI | | | + + + + [...] | + + + | Blood | [facility], [place]ORE [address] [place] [address] | | | [place] [address] | + + + + + | [...] Laboratory | + + + | | [facility] VOICE RECOGNITION | + + + + + | Narrative | + + | EXAM: OK CHEST 1 VIEW HISTORY: COMPARISON: None. FINDINGS: [...] Laboratory | + + + | | [facility] VOICE RECOGNITION | + + + + + | Narrative | + + | EXAM: OK CHEST PICC [...] | Procedure Note Indications:TPN Procedure location: Unit:[facility] Room: [facility] Providers: | | Attending name: Attending [...] A pause verifies correct patient, procedure, equipment, print support specialist and | | site/side marked as required. [...] Arm area Basilic vein. Catheter lot number: [id number] with a length of 55 cm | [...] Laboratory | + + + | | [facility] VOICE RECOGNITION | + [...] | + + + | Blood | [facility], [address]ORE [address] | | | [place] [address] | + + + + + | [...] | + + + | Blood | [facility], CORE [address] [place] [address] | | | [place] [address] | + + + + + | [...] | | ------ CBC (HEMOGRAM) | | ONLY[[id number]] Abnormal Final | | result Please view [...] | >60 | >60 mL/min | | OMANI | | | + + + + | EGFR NON | >60 | >60 mL/min | | -OMANI | | | + + + + [...] | + + + | Blood | [facility], [address] [facility] | | | [place] [address] | + + + + + | [...] Laboratory | + + + | | [facility] VOICE RECOGNITION | + [...] | + + + | Blood | [facility], [facility] [address] [facility] | | | [place] [address] | + + + + + | [...] | + + + | Blood | [facility], [facility] [address] | | | [place] [address] | + + + + + | [...] | | ------ CBC (HEMOGRAM) | | ONLY[[id number]] Abnormal Final | | result Please view [...] | >60 | >60 mL/min | | OMANI | | | + + + + | EGFR NON | >60 | >60 mL/min | | -OMANI | | | + + + + [...] | + + + | Blood | [facility], [address] [address] [facility] | | | [place] [address] | + + + + + | [...] | + + + | Blood | [facility] [facility] CORE [address] [facility] | | | [place] [address] | + + + + + | [...] + + + | Blood | [facility], CORE [address] [facility] | | | [place] [address] | + + + + + | [...] | | ------ CBC (HEMOGRAM) | | ONLY[[id number]] Abnormal Final | | result Please view [...] | >60 | >60 mL/min | | OMANI | | | + + + + | EGFR NON | >60 | >60 mL/min | | -OMANI | | | + + + + [...] | + + + | Blood | [facility], [facility] [address] [address] | | | [place] [address] | + + + + + [...] Laboratory | + + + | | [facility] VOICE RECOGNITION | + [...] Note | + + | Service Account, [employer] Res In Interface - 09/12/2017 9:13 AM [...] | + + + | Blood | [facility], CORE [address] [facility] | | | [place] [address] | + + + + + | [...] | + + + | Blood | [facility], CORE [address] | | | [place] [address] | + + + + + | [...] | | ------ CBC (HEMOGRAM) | | ONLY[[id number]] Abnormal Final | | result Please view [...] | >60 | >60 mL/min | | OMANI | | | + + + + | EGFR NON | >60 | >60 mL/min | | -OMANI | | | + + + + [...] + + + | Blood | [facility], CORE [facility] | | | [place] [address] | + + + + + | [...] Laboratory | + + + | | [facility] VOICE RECOGNITION | + + + [...] | + + + | Blood | [facility], CORE [address] [facility] | | | [place] [address] | + + + + + | [...] + + + | Blood | [facility], CORE [address] | | | [place] [address] | + + + + + | [...] | | ------ CBC (HEMOGRAM) | | ONLY[[id number]] Abnormal Final | | result Please view [...] | >60 | >60 mL/min | | OMANI | | | + + + + | EGFR NON | >60 | >60 mL/min | | -OMANI | | | + + + + [...] | + + + | Blood | [facility], CORE [address] | | | [place] [address] | + + + + + | [...] | + + + | Blood | [facility], CORE [address] [facility] [address] | | | [place] [address] | + + + X-RAY ABD LTD FEEDING TUBE EVAL (09/10/2017 12:44 PM) + + + | Specimen | Performing Laboratory | + + + | | [facility] RAD[facility] VOICE RECOGNITION 2 | [...] Note | + + | Service Account, [id number] Res In Interface - 09/10/2017 2:08 PM [...] Laboratory | + + + | | [facility] V[facility] US | + + + [...] Note | + + | Service Account, [employer] In Interface - 09/10/2017 2:31 PM PDT [...] Laboratory | + + + | | [facility] VOICE RECOGNITION | + + + + + | Narrative | + + | STUDY: OK CHEST 1 [...] | + + + | Blood | [facility], CORE [address] [facility] | | | [place] [address] | + + + AMYLASE, PLASMA (09/10/2017 5:08 AM) + +-------+ + | Component | Value | Ref Range | + +-------+ + | AMYLASE,PLASMA | 58 | 25 - 115 U/L | + +-------+ + + + + | Specimen | Performing Laboratory | + + + | Blood | [facility], CORE [address] [facility] | | | [place] [address] | + + + CBC (HEMOGRAM) ONLY [...] + + + | Blood | [facility], CORE [address] [place] [address] | | | [place] [address] | + + + + + | [...] | + + + | Blood | [facility], CORE [address] [facility] | | | [place] [address] | + + + + + | [...] | | ------ CBC (HEMOGRAM) | | ONLY[[id number]] Abnormal Final | | result Please view [...] | >60 | >60 mL/min | | OMANI | | | + + + + | EGFR NON | >60 | >60 mL/min | | -OMANI | | | + + + + [...] | + + + | Blood | [facility], CORE [address] | | | [place] [address] | + + + + + | [...] Laboratory | + + + | | [facility] [address] [place] [address] | | | [place] [address] | + + + X-RAY ABD LTD [...] TESTS [address] | | | [place] [address] | + + + MAGNESIUM, PLASMA (09/09/2017 3:50 AM) + +-------+ + | Component | Value | Ref Range | + +-------+ + | MAGNESIUM,PLASMA | 2.0 | 1.6 - 2.6 mg/dL | + +-------+ + + + + | Specimen | Performing Laboratory | + + + | Blood | [facility], CORE [address] [facility] | | | [place] [address] | + + + + + | [...] | + + + | Blood | [facility], CORE [address] [place] [address] | | | [place] [address] | + + + + + | [...] | | ------ CBC (HEMOGRAM) | | ONLY[[id number]] Abnormal Final | | result Please view [...] | >60 | >60 mL/min | | OMANI | | | + + + + | EGFR NON | >60 | >60 mL/min | | -OMANI | | | + + + + [...] | + + + | Blood | [facility], CORE [address] [facility] [address] | | | [place] [address] | + + + + + | [...] | + + + | Blood | [facility], CORE [address] [place] [address] | | | [place] [address] | + + + + + | [...] | >60 | >60 mL/min | | OMANI | | | + + + + | EGFR NON | >60 | >60 mL/min | | -OMANI | | | + + + + [...] | + + + | Blood | [facility], CORE [address] | | | [place] [address] | + + + + + | [...] | | ------ CBC (HEMOGRAM) | | ONLY[[id number]] Abnormal Final | | result Please view [...] | + + + | Blood | [facility], CORE [address] [facility] | | | [place] [address] | + + + LIVER SET (AST,ALT,BILI [...] | + + + | Blood | [facility], CORE [address] [facility] [address] | | | [place] [address] | + + + X-RAY ABD LTD FEEDING TUBE EVAL (09/08/2017 4:38 AM) + + + | Specimen | Performing Laboratory | + + + | | [facility] VOICE RECOGNITION | + [...] | + + + | | [facility] [address] [place] [address] | | | [place] [address] | + + + X-RAY PORTABLE CHEST 1 VIEW (09/07/2017 6:12 AM) + + + | Specimen | Performing Laboratory | + + + | | [facility] VOICE RECOGNITION | + + + + + | Narrative | + + | EXAM: OK CHEST 1 [...] | + + + | Blood | [facility], [facility] [address] | | | [place] [address] | + + + + + | [...] | >60 | >60 mL/min | | OMANI | | | + + + + | EGFR NON | >60 | >60 mL/min | | -OMANI | | | + + + + [...] | + + + | Blood | [facility], [facility] [address] | | | [place] [address] | + + + + + | [...] + + + | Blood | [facility], CORE [address] [facility] | | | [place] [address] | + + + + + | [...] | | ------ CBC (HEMOGRAM) | | ONLY[[id number]] Abnormal Final | | result Please view results for these tests on the | | individual orders. | + + X-RAY ABD LTD FEEDING TUBE EVAL (09/06/2017 8:04 PM) + + + | Specimen | Performing Laboratory | + + + | | [facility] RAD[facility] VOICE RECOGNITION | + [...] Laboratory | + + + | | [facility] [address] [place] [address] | | | [place] [address] | + + + PROCEDURE NOTE (09/06/2017 [...] on the 1st attempt. Midline lot number [id number]; there was positive blood | | return. [...] | >60 | >60 mL/min | | OMANI | | | + + + + | EGFR NON | >60 | >60 mL/min | | -OMANI | | | + + + + [...] | + + + | Blood | [facility], CORE [address] [facility] | | | [place] [address] | + + + + + | [...] | + + + | Blood | [facility], CORE [address] [facility] | | | [place] [address] | + + + + + | [...] | Narrative | + + | EXAM: OK CHEST 1 [...] Note | + + | Service Account, [employer] In Interface - 09/05/2017 10:16 AM PDT [...] | + + + | Blood | [facility], CORE [address] [facility] | | | [place] [address] | + + + MAGNESIUM, PLASMA (09/05/2017 3:54 AM) + +-------+ + | Component | Value | Ref Range | + +-------+ + | MAGNESIUM,PLASMA | 1.8 | 1.6 - 2.6 mg/dL | + +-------+ + + + + | Specimen | Performing Laboratory | + + + | Blood | [facility], CORE [address] [facility] | | | [place] [address] | + + + + + | [...] | | ------ CBC (HEMOGRAM) | | ONLY[[id number]] Abnormal Final | | result Please view [...] | >60 | >60 mL/min | | OMANI | | | + + + + | EGFR NON | >60 | >60 mL/min | | -OMANI | | | + + + + [...] | + + + | Blood | [facility], CORE [address] [facility] | | | [place] [address] | + + + + + | [...] | >60 | >60 mL/min | | OMANI | | | + + + + | EGFR NON | >60 | >60 mL/min | | -OMANI | | | + + + + [...] | + + + | Blood | [facility], CORE [address] [facility] | | | [place] [address] | + + + + + | [...] tomorrow morning. CB Henson Pager / ID: [phone] | + + CULTURE, SPUTUM (09/04/2017 1:17 PM) + + + | Specimen | Performing Laboratory | + + + | Sputum - | [place] [facility] [facility] [place] [address] [place], [place] | | Endotracheal tube | [address] | | tip | | + + [...] + | Urine - Catheter - | [facility], CORE [address] [facility] | | indwelling | [place] [address] | + + + TITO COLE ONLY [...] + | SPECIFIC GRAVITY | 1.011Comment: Specific [place] performed by | 1.005 - 1.030 | | | refractometry | | + + + + + + + | Specimen | Performing Laboratory | + + + | Urine - Catheter - | [facility], CORE [address] [facility] [address] | | indwelling | [facility] [address] | + + + CULTURE, BLOOD BACTI & YEAST [facility] (09/04/2017 1:16 PM) + + + + | Component | Value | Ref Range | + + + + | CULTURE RESULT | Final Report:No Bacteria or Yeast isolated | | | | at 5 days. | | + + + + + + + | Specimen | Performing Laboratory | + + + | Blood - Arterial | [facility], CORE [address] [place] [address] | | line | [place] [address] | + + + CULTURE, BLOOD BACTI [...] + + | Blood - Peripheral | [facility], CORE [address] [facility] | | | [place] [address] | + + + CULTURE, BLOOD BACTI [...] ------ CULTURE, BLOOD | | BACTI & Y...[[id number]] Final | | result Please view results [...] ------ CULTURE, BLOOD | | BACTI & Y...[[id number]] Final | | result Please view results [...] | + + + | | [facility] [address] [place] [address] | | | [place] [address] | + + + X-RAY PORTABLE CHEST 1 VIEW (09/04/2017 7:04 AM) + + + | Specimen | Performing Laboratory | + + + | | [facility] RADIOLOGY VOICE RECOGNITION | + + + + + | Narrative | + + | EXAM: OK CHEST 1 VIEW HISTORY: Hypoxia. Intubated. COMPARISON: [...] Note | + + | Service Account, [employer] Res In Interface - 09/04/2017 9:49 AM [...] | + + + | Blood | [facility], CORE [address] [facility] | | | [place] [address] | + + + CBC (HEMOGRAM) ONLY [...] | + + + | Blood | [facility], CORE [address] [place] [address] | | | [place] [address] | + + + RENAL FUNCTION SET [...] | >60 | >60 mL/min | | OMANI | | | + + + + | EGFR NON | >60 | >60 mL/min | | -OMANI | | | + + + + [...] | + + + | Blood | [facility], CORE [address] [facility] | | | [place] [address] | + + + + + | [...] | + + + | Blood | [facility], CORE [address] [facility] | | | [place] [address] | + + + + + | [...] | | ------ CBC (HEMOGRAM) | | ONLY[[id number]] Abnormal Final | | result Please view [...] [address] | | | [place] [address] | + + + CAPILLARY BLOOD GLUCOSE (NO CHG), POC (09/04/2017 12:17 AM) + +-------+ + | Component | Value | Ref Range | + +-------+ + | BLOOD GLUCOSE, POC | 72 | 70 - 99 mg/dL | + +-------+ + + + + | Specimen | Performing Laboratory | + + + | | [facility] PICKETT [place], POINT OF CARE TESTS [address] | | | [place] [address] | + + + CAPILLARY BLOOD GLUCOSE [...] [address] | | | [place] [address] | + + + CAPILLARY BLOOD GLUCOSE [...] [address] | | | [place] [address] | + + + VASC LAB VENOUS DUPLEX LOWER EXTREMITY BILAT COMP (09/03/2017 9:51 AM) + + + | Specimen | Performing Laboratory | + + + | | [facility] RADIOLOGY VASC US | + [...] Note | + + | Service Account, [employer] In Interface - 09/03/2017 10:27 AM [...] + + + | Sputum - | [facility] [address] [place], [place] | | Expectorated | [id number] | + + + + + [...] | + + + | Blood | [facility], CORE [address] [facility] | | | [place], [place] [address] | + + + X-RAY ABD LTD FEEDING TUBE EVAL (09/03/2017 4:32 AM) + + + | Specimen | Performing Laboratory | + + + | | [facility] RAD[facility] VOICE RECOGNITION | + [...] Note | + + | Service Account, [employer] In Interface - 09/03/2017 9:54 AM PDT [...] + + + | Sputum - | [facility] [address] [place], [place] | | Expectorated | [id number] | + + + + + | [...] | + + + | Blood | [facility], CORE [address] [place] [address] | | | [place] [address] | + + + CBC (HEMOGRAM) ONLY [...] | + + + | Blood | [facility], CORE [address] [place] [address] | | | [place] [address] | + + + RENAL FUNCTION SET [...] | >60 | >60 mL/min | | OMANI | | | + + + + | EGFR NON | >60 | >60 mL/min | | -OMANI | | | + + + + [...] | + + + | Blood | [facility], CORE [address] [facility] | | | [place] [address] | + + + + + | [...] | + + + | Blood | [facility], CORE [address] [facility] | | | [place] [address] | + + + + + | [...] | | ------ CBC (HEMOGRAM) | | ONLY[[id number]] Abnormal Final | | result Please view results for these tests on the | | individual orders. | + + OPERATION RECORD (09/02/2017 6:53 PM) + + | Procedure Note | + + | Fidelina Shields MD - 09/02/2017 6:53 PM PDT Date of Service: 09/02/2017 | | Attending Surgeon: Fidelina Shields MD Administrative Receptionist(s): | | Ajay Garcia MD, resident. Preoperative [...] 09/02/2017 18:15:29DT: 09/02/2017 18:53:52Job #: | | [id number] to federal Medicare and Medicaid regulations I was present for | | the entire procedure.Fidelina Shields MDAssistant ProfessorDepartment of SurgeryOffice: | | [phone]: [id number] has been electronically signed by Fidelina Shields MD, | | 09/03/2017 at 9:11 AM. | | | | | |Fidelina Shields MD | |Sales And Marketing Professional | |Department of Surgery | |Office: [phone] | |Pager: [phone] | | | |This has been electronically [...] | + + + | Blood | [facility], CORE [address] [facility] | | | [place] [address] | + + + BLOOD GASES, ARTERIAL [...] | + + + | Blood | [facility], CORE [address] [facility] | | | [place] [address] | + + + CULTURE, AFB (ALL SPEC TYPES EXCEPT BLOOD) (09/02/2017 5:10 PM) + + + | Specimen | Performing Laboratory | + + + | Sputum - | [place] [facility] [place] [address] [place], [place] | | Expectorated | [id number] | + + + + + | [...] | + + + | Blood | [facility], CORE [address] | | | [place] [address] | + + + + + | [...] | >60 | >60 mL/min | | OMANI | | | + + + + | EGFR NON | >60 | >60 mL/min | | -OMANI | | | + + + + [...] | + + + | Blood | [facility], [facility] [address] | | | [place] [address] | + + + + + | [...] Laboratory | + + + | | [facility] RAD[facility]OLOGY VOICE RECOGNITION | + [...] Note | + + | Service Account, [employer] In Interface - 09/02/2017 4:25 PM PDT [...] INGRID Zhang | | Beckie, Yolanda Surgery [id number] Pursuant to federal Medicare and Medicaid regulations I | | was present for the entire procedure. Fidelina Shields MD Administrative Receptionist | | Professor Department of Surgery Office: [phone] Pager: [phone] This has been | | electronically signed [...] | + + + | Blood | [facility], CORE [address] | | | [place] [address] | + + + INR (09/02/2017 9:39 AM) + + + + | Component | Value | Ref Range | + + + + | INR | 1.26 (H) | 0.90 - 1.20 INR | + + + + + + + | Specimen | Performing Laboratory | + + + | Blood | [facility], CORE [address] | | | [place] [address] | + + + + + | [...] | | Attending Surgeon: Fidelina Shields MD Administrative Receptionist(s): Haim Peralta MD. | | Ajay Garcia [...] 09/02/2017 06:17:53DT: 09/02/2017 | | 06:51:37Job #: [id number] to federal Medicare and Medicaid regulations I | | was present for the entire procedure.Fidelina Tenorio ProfessorDepartment of | | SurgeryOffice: [phone]: [id number] has been electronically signed by Fidelina Radford | MD Cornelius, 09/02/2017 at 10:40 AM. | | | | | |Pursuant to federal Medicare and Medicaid regulations I was present for the entire procedur e. | | | | | | | |Fidelina Shields MD | |Sales And Marketing Professional | |Department of Surgery | |Office: [phone] | |Pager: [phone] | | | |This has been electronically [...] | + + + | Blood | [facility], CORE [address] [facility] | | | [place] [address] | + + + HEMATOCRIT (09/02/2017 5:16 AM) + + + + | Component | Value | Ref Range | + + + + | HEMATOCRIT | 34.0 (L) | 41.0 - 53.0 % | + + + + + + + | Specimen | Performing Laboratory | + + + | Blood | [facility], CORE [address] [place] [address] | | | [place] [address] | + + + PRODUCT - RED CELLS LEUKOREDUCED (09/02/2017 2:53 AM) + + + + | Component | Value | Ref Range | + + + + | PRODUCT DESCRIPTION | -1 RED BLOOD CELL ADENINE-SALINE ADDED | | | | LEUKOCYTE | | + + + + | PRODUCT UNIT # | [id number] | | + + + + | UNIT ABO | O | | + + + + | UNIT RH | POS | | + + + + | STATUS OF UNIT | Presumed Transfused | | + + + + | EXPIRATION DATE | [id number] | | + + + + | BLOOD TYPE BARCODE | 5100 | | + + + + | BLOOD PRODUCT CODE | [id number] | | + + + + + + + | Specimen | Performing Laboratory | + + + | | [facility], TRANSFUSION MEDICINE [address] [place] [address] | | | [place] [address] | + + + CT PELVIS WO IV CONTRAST (09/02/2017 1:45 AM) + + + | Specimen | Performing Laboratory | + + + | | [facility] RADIOLOGY VOICE RECOGNITION | + [...] Note | + + | Service Account, Radi140Fire Res In Interface - 09/02/2017 11:22 AM [...] | + + + | Blood | [facility], CORE [address] [facility] | | | [place] [address] | + + + RENAL FUNCTION SET [...] | >60 | >60 mL/min | | OMANI | | | + + + + | EGFR NON | >60 | >60 mL/min | | -OMANI | | | + + + + [...] + + + | Blood | [facility], [facility] [address] [facility] | | | [place] [address] | + + + + + | [...] + + + | Blood | [facility], CORE [address] [facility] | | | [place] [address] | + + + + + | [...] | | ------ CBC (HEMOGRAM) | | ONLY[[id number]] Abnormal Final | | result Please view [...] | | (http://www.cdc.gov/mmwr/preview/mmwrhtml/r | | | | [email or web address].htm), for information concerning | | | | test performance in low-prevalence | | | | populations and use in occupational | | | | screening. | | + + + + | NIL | 0.05Comment: Performed by [facility] | IU/mL | | | Laboratories, | | | | [address], | | | | [place] [address] | | | | [phone] | | | | [email or web address], Gui Ervin MD - | | | | Lab. Director | | + + + + | TB AG-NIL | 0.26 | 0.00 - 0.34 IU/mL | + + + + | MITOGEN-NIL | 9.35 | IU/mL | + + + + + + + | Specimen | Performing Laboratory | + + + | Blood | [facility] [place] [address] [place], [place] | | | [address] | + + + LACTATE (09/01/2017 8:18 PM) + +-------+ + | Component | Value | Ref Range | + +-------+ + | LACTATE | 1.6 | mmol/L | + +-------+ + + + + | Specimen | Performing Laboratory | + + + | Blood | [facility], CORE [address] [facility] | | | [place] [address] | + + + + + | [...] | + + + | Blood | [facility], CORE [address] [facility] | | | [place] [address] | + + + X-RAY KNEE 2 VIEWS LEFT (09/01/2017 7:48 PM) + + + | Specimen | Performing Laboratory | + + + | | [facility]OGNITION | + [...] Laboratory | + + + | | [facility]OGNITION | + + + + + | Narrative | + + | EXAM: OK CHEST 1 [...] + + + | Blood | [facility], [address] [facility] | | | [place] [address] | + + + HEMATOCRIT (09/01/2017 5:43 PM) + + + + | Component | Value | Ref Range | + + + + | HEMATOCRIT | 34.1 (L) | 41.0 - 53.0 % | + + + + + + + | Specimen | Performing Laboratory | + + + | Blood | [facility], [address]ORE [address] [place] [address] | | | [place] [address] | + + + PRODUCT - PLATELET PHERESIS LEUKOREDUCED (09/01/2017 4:42 PM) + + + + | Component | Value | Ref Range | + + + + | PRODUCT DESCRIPTION | PLATELETS PHERESIS LEUKOCYTE REDUCED | | + + + + | PRODUCT UNIT # | [id number] | | + + + + | UNIT ABO | O | | + + + + | UNIT RH | POS | | + + + + | STATUS OF UNIT | Presumed Transfused | | + + + + | EXPIRATION DATE | [id number] | | + + + + | BLOOD TYPE BARCODE | | | + + + + | BLOOD PRODUCT CODE | [id number] | | + + + + + + + | Specimen | Performing Laboratory | + + + | | [facility], TRANSFUSION MEDICINE [address] [place] [address] | | | [place] [address] | + + + BLOOD GASES, ARTERIAL [...] | + + + | Blood | [facility], CORE [address] | | | [place] [address] | + + + LACTATE (09/01/2017 4:19 PM) + +-------+ + | Component | Value | Ref Range | + +-------+ + | LACTATE | 1.6 | mmol/L | + +-------+ + + + + | Specimen | Performing Laboratory | + + + | Blood | [facility], CORE [address] | | | [place] [address] | + + + + + | [...] | + + + | Blood | [facility], CORE [address] [facility] | | | [place] [address] | + + + COMPLETE METABOLIC SET [...] | >60 | >60 mL/min | | OMANI | | | + + + + | EGFR NON | >60 | >60 mL/min | | -OMANI | | | + + + + [...] | + + + | Blood | [facility], CORE [address] [facility] | | | [place] [address] | + + + + + | [...] | | ------ CBC (HEMOGRAM) | | ONLY[[id number]] Abnormal Final | | result Please view [...] | + + + | Blood | [facility], CORE [address] [facility] | | | [place] [address] | + + + + + | [...] | + + + | Blood | [facility], CORE [address] | | | [place] [address] | + + + + + | [...] micropuncture access set was exchanged for a [place] | | wire. Under fluoroscopic guidance, a 5 Fr flush catheter was used to evaluate the | | distal abdominal aorta and pelvic vasculature. A wire and catheter were then used to | | select the left common and internal iliac arteries from the right ARCHITECTURAL SUPERINTENDENT approach. DSA | | was performed from [...] micropuncture access set was exchanged for a [place] wire. Under fluoroscopic guidance, | | a 5 Fr flush catheter was used to evaluate the distal abdominal aorta and pelvic | | vasculature. A wire and catheter were then used to select the left common and internal | | iliac arteries from the right ARCHITECTURAL SUPERINTENDENT approach. DSA was performed from the left [...] micropuncture access set was exchanged for a [place] wire. Under fluoroscopic guidance, a 5 Fr flush catheter was used | |to evaluate the distal abdominal aorta and pelvic vasculature. A wire and catheter were th en used to select the left common and internal iliac arteries from the right ARCHITECTURAL SUPERINTENDENT approach. DSA was performed from the left [...] | + + + | Blood | [facility], POINT OF CARE TESTS [address] | | | [place] [address] | + + + EXPLORATORY LAPAROTOMY (09/01/2017 12:31 PM) + + | Narrative | + + | Fidelina Shields MD 09/01/2017 12:42 PM BRIEF OPERATIVE NOTE: | | Date: 09/01/2017 Author: Fidelina Shields MD Attending Physician: | | Fidelina Shields MD Administrative Receptionist(s): Haim Peralta MD, Glo Olmos MD | [...] the case. | | Fidelina Shields MD Sales And Marketing Professional Division of Trauma, Critical Care and | | Acute Care Surgery Office: [phone] Pager: [phone] | + + ABG-FULL ABL, POC (09/01/2017 [...] [address] | | | [place] [address] | + + + CREATININE, BODY FLUID (09/01/2017 11:52 AM) + +-------+ + | Component | Value | Ref Range | + +-------+ + | CREATININE BODY | 0.60 | mg/dL | | FLUID | | | + +-------+ + + + + | Specimen | Performing Laboratory | + + + | Fluid - Abdominal | [facility], CORE [address] [facility] | | | [place], [place] [address] | + + + + + | [...] | [facility] POINT OF CARE TESTS [address] | | | [place] [address] | + + + PRODUCT - PLATELET PHERESIS LEUKOREDUCED (09/01/2017 9:56 AM) + + + + | Component | Value | Ref Range | + + + + | PRODUCT DESCRIPTION | PLATELETS PHERESIS LEUKOCYTES REDUCED | | + + + + | PRODUCT UNIT # | [id number] | | + + + + | UNIT ABO | A | | + + + + | UNIT RH | POS | | + + + + | STATUS OF UNIT | Returned to Blood Bank | | + + + + | EXPIRATION DATE | [id number] | | + + + + | BLOOD TYPE BARCODE | 6200 | | + + + + | BLOOD PRODUCT CODE | [id number] | | + + + + + + + | Specimen | Performing Laboratory | + + + | | [facility], TRANSFUSION MEDICINE [address] [facility] | | | [place] [address] | + + + PRODUCT - FRESH FROZEN PLASMA (09/01/2017 9:53 AM) + + + + | Component | Value | Ref Range | + + + + | PRODUCT DESCRIPTION | LIQUID PLASMA, IRRADIATED | | + + + + | PRODUCT UNIT # | [id number] | | + + + + | UNIT ABO | A | | + + + + | UNIT RH | POS | | + + + + | STATUS OF UNIT | Returned to Blood Bank | | + + + + | EXPIRATION DATE | [id number] | | + + + + | BLOOD TYPE BARCODE | 6200 | | + + + + | BLOOD PRODUCT CODE | [id number] | | + + + + + + + | Specimen | Performing Laboratory | + + + | | [facility], TRANSFUSION MEDICINE [address] [facility] | | | [place] [address] | + + + PRODUCT - FRESH FROZEN PLASMA (09/01/2017 9:53 AM) + + + + | Component | Value | Ref Range | + + + + | PRODUCT DESCRIPTION | LIQUID PLASMA, IRRADIATED | | + + + + | PRODUCT UNIT # | [id number] | | + + + + | UNIT ABO | A | | + + + + | UNIT RH | POS | | + + + + | STATUS OF UNIT | Returned to Blood Bank | | + + + + | EXPIRATION DATE | [id number] | | + + + + | BLOOD TYPE BARCODE | 6200 | | + + + + | BLOOD PRODUCT CODE | [id number] | | + + + + + + + | Specimen | Performing Laboratory | + + + | | [facility], TRANSFUSION MEDICINE [address] [facility] | | | [place] [address] | + + + PRODUCT - RED CELLS LEUKOREDUCED (09/01/2017 9:49 AM) + + + + | Component | Value | Ref Range | + + + + | PRODUCT DESCRIPTION | -3 RED BLOOD CELLS ADENINE-SALINE ADDED | | | | LEUKOCY | | + + + + | PRODUCT UNIT # | [id number] | | + + + + | UNIT ABO | O | | + + + + | UNIT RH | POS | | + + + + | STATUS OF UNIT | Returned to Blood Bank | | + + + + | EXPIRATION DATE | [id number] | | + + + + | BLOOD TYPE BARCODE | 5100 | | + + + + | BLOOD PRODUCT CODE | [id number] | | + + + + + + + | Specimen | Performing Laboratory | + + + | | [facility], TRANSFUSION MEDICINE [address] | | | [place] [facility] [address] | + + + PRODUCT - RED CELLS LEUKOREDUCED (09/01/2017 9:49 AM) + + + + | Component | Value | Ref Range | + + + + | PRODUCT DESCRIPTION | -3 RED BLOOD CELLS ADENINE-SALINE ADDED | | | | LEUKOCY | | + + + + | PRODUCT UNIT # | [id number] | | + + + + | UNIT ABO | O | | + + + + | UNIT RH | POS | | + + + + | STATUS OF UNIT | Returned to Blood Bank | | + + + + | EXPIRATION DATE | [id number] | | + + + + | BLOOD TYPE BARCODE | 5100 | | + + + + | BLOOD PRODUCT CODE | [id number] | | + + + + + + + | Specimen | Performing Laboratory | + + + | | [facility], TRANSFUSION MEDICINE [address] | | | [place] [address] | + + + PRODUCT - RED CELLS LEUKOREDUCED (09/01/2017 9:49 AM) + + + + | Component | Value | Ref Range | + + + + | PRODUCT DESCRIPTION | -1 RED BLOOD CELL ADENINE-SALINE ADDED | | | | LEUKOCYTE | | + + + + | PRODUCT UNIT # | [id number] | | + + + + | UNIT ABO | O | | + + + + | UNIT RH | POS | | + + + + | STATUS OF UNIT | Returned to Blood Bank | | + + + + | EXPIRATION DATE | [id number] | | + + + + | BLOOD TYPE BARCODE | 5100 | | + + + + | BLOOD PRODUCT CODE | [id number] | | + + + + + + + | Specimen | Performing Laboratory | + + + | | [facility], TRANSFUSION MEDICINE [address] [place] [address] | | | [place] [address] | + + + PRODUCT - RED CELLS LEUKOREDUCED (09/01/2017 9:49 AM) + + + + | Component | Value | Ref Range | + + + + | PRODUCT DESCRIPTION | -1 RED BLOOD CELL ADENINE-SALINE ADDED | | | | LEUKOCYTE | | + + + + | PRODUCT UNIT # | [id number] | | + + + + | UNIT ABO | O | | + + + + | UNIT RH | POS | | + + + + | STATUS OF UNIT | Returned to Blood Bank | | + + + + | EXPIRATION DATE | [id number] | | + + + + | BLOOD TYPE BARCODE | 5100 | | + + + + | BLOOD PRODUCT CODE | [id number] | | + + + + + + + | Specimen | Performing Laboratory | + + + | | [facility], TRANSFUSION MEDICINE [address] [facility] | | | [place] [address] | + + + PRODUCT - RED CELLS LEUKOREDUCED (09/01/2017 9:49 AM) + + + + | Component | Value | Ref Range | + + + + | PRODUCT DESCRIPTION | -1 RED BLOOD CELL ADENINE-SALINE ADDED | | | | LEUKOCYTE | | + + + + | PRODUCT UNIT # | [id number] | | + + + + | UNIT ABO | O | | + + + + | UNIT RH | POS | | + + + + | STATUS OF UNIT | Returned to Blood Bank | | + + + + | EXPIRATION DATE | [id number] | | + + + + | BLOOD TYPE BARCODE | 5100 | | + + + + | BLOOD PRODUCT CODE | [id number] | | + + + + + + + | Specimen | Performing Laboratory | + + + | | [facility], TRANSFUSION MEDICINE [address] | | | [place] [address] | + + + PRODUCT - RED CELLS LEUKOREDUCED (09/01/2017 9:49 AM) + + + + | Component | Value | Ref Range | + + + + | PRODUCT DESCRIPTION | -1 RED BLOOD CELL ADENINE-SALINE ADDED | | | | LEUKOCYTE | | + + + + | PRODUCT UNIT # | [id number] | | + + + + | UNIT ABO | O | | + + + + | UNIT RH | POS | | + + + + | STATUS OF UNIT | Returned to Blood Bank | | + + + + | EXPIRATION DATE | [id number] | | + + + + | BLOOD TYPE BARCODE | 5100 | | + + + + | BLOOD PRODUCT CODE | [id number] | | + + + + + + + | Specimen | Performing Laboratory | + + + | | [facility], TRANSFUSION MEDICINE [address] [facility] | | | [place] [address] | + + + PRODUCT - FRESH FROZEN PLASMA (09/01/2017 9:46 AM) + + + + | Component | Value | Ref Range | + + + + | PRODUCT DESCRIPTION | PLASMA THAWED | | + + + + | PRODUCT UNIT # | [id number] | | + + + + | UNIT ABO | B | | + + + + | UNIT RH | POS | | + + + + | STATUS OF UNIT | Returned to Blood Bank | | + + + + | EXPIRATION DATE | [id number] | | + + + + | BLOOD TYPE BARCODE | 7300 | | + + + + | BLOOD PRODUCT CODE | [id number] | | + + + + + + + | Specimen | Performing Laboratory | + + + | | [facility], TRANSFUSION MEDICINE [address] [place] [address] | | | [place] [address] | + + + PRODUCT - FRESH FROZEN PLASMA (09/01/2017 9:46 AM) + + + + | Component | Value | Ref Range | + + + + | PRODUCT DESCRIPTION | PLASMA THAWED | | + + + + | PRODUCT UNIT # | [id number] | | + + + + | UNIT ABO | B | | + + + + | UNIT RH | POS | | + + + + | STATUS OF UNIT | Returned to Blood Bank | | + + + + | EXPIRATION DATE | [id number] | | + + + + | BLOOD TYPE BARCODE | 7300 | | + + + + | BLOOD PRODUCT CODE | [id number] | | + + + + + + + | Specimen | Performing Laboratory | + + + | | [facility], TRANSFUSION MEDICINE [address] [facility] | | | [place] [address] | + + + PRODUCT - FRESH FROZEN PLASMA (09/01/2017 9:46 AM) + + + + | Component | Value | Ref Range | + + + + | PRODUCT DESCRIPTION | LIQUID PLASMA, IRRADIATED | | + + + + | PRODUCT UNIT # | [id number] | | + + + + | UNIT ABO | A | | + + + + | UNIT RH | POS | | + + + + | STATUS OF UNIT | Returned to Blood Bank | | + + + + | EXPIRATION DATE | [id number] | | + + + + | BLOOD TYPE BARCODE | 6200 | | + + + + | BLOOD PRODUCT CODE | [id number] | | + + + + + + + | Specimen | Performing Laboratory | + + + | | [facility], TRANSFUSION MEDICINE [address] [facility] | | | [place] [address] | + + + PRODUCT - FRESH FROZEN PLASMA (09/01/2017 9:46 AM) + + + + | Component | Value | Ref Range | + + + + | PRODUCT DESCRIPTION | LIQUID PLASMA, IRRADIATED | | + + + + | PRODUCT UNIT # | [id number] | | + + + + | UNIT ABO | A | | + + + + | UNIT RH | POS | | + + + + | STATUS OF UNIT | Returned to Blood Bank | | + + + + | EXPIRATION DATE | [id number] | | + + + + | BLOOD TYPE BARCODE | 6200 | | + + + + | BLOOD PRODUCT CODE | [id number] | | + + + + + + + | Specimen | Performing Laboratory | + + + | | [facility], TRANSFUSION MEDICINE [address] [facility] | | | [place] [address] | + + + PRODUCT - FRESH FROZEN PLASMA (09/01/2017 9:46 AM) + + + + | Component | Value | Ref Range | + + + + | PRODUCT DESCRIPTION | LIQUID PLASMA, IRRADIATED | | + + + + | PRODUCT UNIT # | [id number] | | + + + + | UNIT ABO | A | | + + + + | UNIT RH | POS | | + + + + | STATUS OF UNIT | Returned to Blood Bank | | + + + + | EXPIRATION DATE | [id number] | | + + + + | BLOOD TYPE BARCODE | 6200 | | + + + + | BLOOD PRODUCT CODE | [id number] | | + + + + + + + | Specimen | Performing Laboratory | + + + | | [facility], TRANSFUSION MEDICINE [address] | | | [place] [address] | + + + PRODUCT - FRESH FROZEN PLASMA (09/01/2017 9:46 AM) + + + + | Component | Value | Ref Range | + + + + | PRODUCT DESCRIPTION | LIQUID PLASMA, IRRADIATED | | + + + + | PRODUCT UNIT # | [id number] | | + + + + | UNIT ABO | A | | + + + + | UNIT RH | POS | | + + + + | STATUS OF UNIT | Returned to Blood Bank | | + + + + | EXPIRATION DATE | [id number] | | + + + + | BLOOD TYPE BARCODE | 6200 | | + + + + | BLOOD PRODUCT CODE | [id number] | | + + + + + + + | Specimen | Performing Laboratory | + + + | | [facility], TRANSFUSION MEDICINE [address] [facility] | | | [place] [address] | + + + PRODUCT - PLATELET PHERESIS LEUKOREDUCED (09/01/2017 9:43 AM) + + + + | Component | Value | Ref Range | + + + + | PRODUCT DESCRIPTION | PLATELETS PHERESIS LEUKOCYTE REDUCED | | + + + + | PRODUCT UNIT # | [id number] | | + + + + | UNIT ABO | A | | + + + + | UNIT RH | POS | | + + + + | STATUS OF UNIT | Presumed Transfused | | + + + + | EXPIRATION DATE | [id number] | | + + + + | BLOOD TYPE BARCODE | 6200 | | + + + + | BLOOD PRODUCT CODE | [id number] | | + + + + + + + | Specimen | Performing Laboratory | + + + | | [facility], TRANSFUSION MEDICINE [address] [facility] | | | [place] [address] | + + + PRODUCT - FRESH FROZEN PLASMA (09/01/2017 9:35 AM) + + + + | Component | Value | Ref Range | + + + + | PRODUCT DESCRIPTION | LIQUID PLASMA, IRRADIATED | | + + + + | PRODUCT UNIT # | [id number] | | + + + + | UNIT ABO | A | | + + + + | UNIT RH | NEG | | + + + + | STATUS OF UNIT | Presumed Transfused | | + + + + | EXPIRATION DATE | [id number] | | + + + + | BLOOD TYPE BARCODE | | | + + + + | BLOOD PRODUCT CODE | [id number] | | + + + + + + + | Specimen | Performing Laboratory | + + + | | [facility], TRANSFUSION MEDICINE [address] [facility] | | | [place] [address] | + + + PRODUCT - FRESH FROZEN PLASMA (09/01/2017 9:35 AM) + + + + | Component | Value | Ref Range | + + + + | PRODUCT DESCRIPTION | LIQUID PLASMA, IRRADIATED | | + + + + | PRODUCT UNIT # | [id number] | | + + + + | UNIT ABO | A | | + + + + | UNIT RH | NEG | | + + + + | STATUS OF UNIT | Returned to Blood Bank | | + + + + | EXPIRATION DATE | [id number] | | + + + + | BLOOD TYPE BARCODE | 0600 | | + + + + | BLOOD PRODUCT CODE | [id number] | | + + + + + + + | Specimen | Performing Laboratory | + + + | | [facility], TRANSFUSION MEDICINE [address] [facility] | | | [place] [address] | + + + PRODUCT - FRESH FROZEN PLASMA (09/01/2017 9:35 AM) + + + + | Component | Value | Ref Range | + + + + | PRODUCT DESCRIPTION | LIQUID PLASMA, IRRADIATED | | + + + + | PRODUCT UNIT # | [id number] | | + + + + | UNIT ABO | A | | + + + + | UNIT RH | POS | | + + + + | STATUS OF UNIT | Returned to Blood Bank | | + + + + | EXPIRATION DATE | [id number] | | + + + + | BLOOD TYPE BARCODE | 6200 | | + + + + | BLOOD PRODUCT CODE | [id number] | | + + + + + + + | Specimen | Performing Laboratory | + + + | | [facility], TRANSFUSION MEDICINE [address] [facility] | | | [place] [address] | + + + PRODUCT - FRESH FROZEN PLASMA (09/01/2017 9:35 AM) + + + + | Component | Value | Ref Range | + + + + | PRODUCT DESCRIPTION | LIQUID PLASMA, IRRADIATED | | + + + + | PRODUCT UNIT # | [id number] | | + + + + | UNIT ABO | A | | + + + + | UNIT RH | POS | | + + + + | STATUS OF UNIT | Presumed Transfused | | + + + + | EXPIRATION DATE | [id number] | | + + + + | BLOOD TYPE BARCODE | 6200 | | + + + + | BLOOD PRODUCT CODE | [id number] | | + + + + + + + | Specimen | Performing Laboratory | + + + | | [facility], TRANSFUSION MEDICINE [address] [facility] | | | [place] [address] | + + + PRODUCT - RED CELLS LEUKOREDUCED (09/01/2017 9:35 AM) + + + + | Component | Value | Ref Range | + + + + | PRODUCT DESCRIPTION | -1 RED BLOOD CELL ADENINE-SALINE ADDED | | | | LEUKOCYTE | | + + + + | PRODUCT UNIT # | [id number] | | + + + + | UNIT ABO | O | | + + + + | UNIT RH | POS | | + + + + | STATUS OF UNIT | Returned to Blood Bank | | + + + + | EXPIRATION DATE | [id number] | | + + + + | BLOOD TYPE BARCODE | 5100 | | + + + + | BLOOD PRODUCT CODE | [id number] | | + + + + + + + | Specimen | Performing Laboratory | + + + | | [facility], TRANSFUSION MEDICINE [address] [facility] | | | [place] [address] | + + + PRODUCT - RED CELLS LEUKOREDUCED (09/01/2017 9:35 AM) + + + + | Component | Value | Ref Range | + + + + | PRODUCT DESCRIPTION | -1 RED BLOOD CELL ADENINE-SALINE ADDED | | | | LEUKOCYTE | | + + + + | PRODUCT UNIT # | [id number] | | + + + + | UNIT ABO | O | | + + + + | UNIT RH | POS | | + + + + | STATUS OF UNIT | Returned to Blood Bank | | + + + + | EXPIRATION DATE | [id number] | | + + + + | BLOOD TYPE BARCODE | 5100 | | + + + + | BLOOD PRODUCT CODE | [id number] | | + + + + + + + | Specimen | Performing Laboratory | + + + | | [facility], TRANSFUSION MEDICINE [address] [place] [address] | | | [place] [address] | + + + PRODUCT - RED CELLS LEUKOREDUCED (09/01/2017 9:35 AM) + + + + | Component | Value | Ref Range | + + + + | PRODUCT DESCRIPTION | -1 RED BLOOD CELL ADENINE-SALINE ADDED | | | | LEUKOCYTE | | + + + + | PRODUCT UNIT # | [id number] | | + + + + | UNIT ABO | O | | + + + + | UNIT RH | POS | | + + + + | STATUS OF UNIT | Presumed Transfused | | + + + + | EXPIRATION DATE | [id number] | | + + + + | BLOOD TYPE BARCODE | 5100 | | + + + + | BLOOD PRODUCT CODE | [id number] | | + + + + + + + | Specimen | Performing Laboratory | + + + | | [facility], TRANSFUSION MEDICINE [address] [facility] | | | [place] [address] | + + + PRODUCT - RED CELLS LEUKOREDUCED (09/01/2017 9:35 AM) + + + + | Component | Value | Ref Range | + + + + | PRODUCT DESCRIPTION | -1 RED BLOOD CELL ADENINE-SALINE ADDED | | | | LEUKOCYTE | | + + + + | PRODUCT UNIT # | [id number] | | + + + + | UNIT ABO | O | | + + + + | UNIT RH | POS | | + + + + | STATUS OF UNIT | Presumed Transfused | | + + + + | EXPIRATION DATE | [id number] | | + + + + | BLOOD TYPE BARCODE | 5100 | | + + + + | BLOOD PRODUCT CODE | [id number] | | + + + + + + + | Specimen | Performing Laboratory | + + + | | [facility], TRANSFUSION MEDICINE [address] [facility] | | | [place] [address] | + + + PRODUCT - RED CELLS LEUKOREDUCED (09/01/2017 9:35 AM) + + + + | Component | Value | Ref Range | + + + + | PRODUCT DESCRIPTION | -1 RED BLOOD CELL ADENINE-SALINE ADDED | | | | LEUKOCYTE | | + + + + | PRODUCT UNIT # | [id number] | | + + + + | UNIT ABO | O | | + + + + | UNIT RH | POS | | + + + + | STATUS OF UNIT | Returned to Blood Bank | | + + + + | EXPIRATION DATE | [id number] | | + + + + | BLOOD TYPE BARCODE | 5100 | | + + + + | BLOOD PRODUCT CODE | [id number] | | + + + + + + + | Specimen | Performing Laboratory | + + + | | [facility], TRANSFUSION MEDICINE [address] [place] [address] | | | [place] [address] | + + + PRODUCT - RED CELLS LEUKOREDUCED (09/01/2017 9:35 AM) + + + + | Component | Value | Ref Range | + + + + | PRODUCT DESCRIPTION | -1 RED BLOOD CELL ADENINE-SALINE ADDED | | | | LEUKOCYTE | | + + + + | PRODUCT UNIT # | [id number] | | + + + + | UNIT ABO | O | | + + + + | UNIT RH | POS | | + + + + | STATUS OF UNIT | Presumed Transfused | | + + + + | EXPIRATION DATE | [id number] | | + + + + | BLOOD TYPE BARCODE | 5100 | | + + + + | BLOOD PRODUCT CODE | [id number] | | + + + + + + + | Specimen | Performing Laboratory | + + + | | [facility], TRANSFUSION MEDICINE [address] [facility] | | | [place] [address] | + + + CBC (HEMOGRAM) ONLY [...] | + + + | Blood | [facility], [facility] [address] | | | [place] [address] | + + + RENAL FUNCTION SET [...] | >60 | >60 mL/min | | OMANI | | | + + + + | EGFR NON | >60 | >60 mL/min | | -OMANI | | | + + + + [...] | + + + | Blood | [facility], CORE [address] [place] [address] | | | [place] [address] | + + + + + | [...] | | ------ CBC (HEMOGRAM) | | ONLY[[id number]] Abnormal Final | | result Please view results for these tests on the | | individual orders. | + + LACTATE (09/01/2017 9:35 AM) + +-------+ + | Component | Value | Ref Range | + +-------+ + | LACTATE | 2.5 | mmol/L | + +-------+ + + + + | Specimen | Performing Laboratory | + + + | Blood | [facility], CORE [address] | | | [place] [address] | + + + + + | [...] | + + + | Blood | [facility]INT [facility] TESTS [address] | | | [place] [address] | + + + X-RAY PORTABLE CHEST 1 VIEW (09/01/2017 9:18 AM) + + + | Specimen | Performing Laboratory | + + + | | [facility]ICE RECOGNITION | + + + + + | Narrative | + + | EXAM: OK CHEST 1 [...] Laboratory | + + + | | [facility]ICE RECOGNITION | + [...] Note | + + | Service Account, [employer] Res In Interface - 09/01/2017 1:40 PM [...] + + | PRODUCT UNIT # | [id number] | | + + + + | UNIT ABO | O | | + + + + | UNIT RH | POS | | + + + + | STATUS OF UNIT | Presumed Transfused | | + + + + | EXPIRATION DATE | [id number] | | + + + + | BLOOD TYPE BARCODE | 5100 | | + + + + | BLOOD PRODUCT CODE | [id number] | | + + + + + + + | Specimen | Performing Laboratory | + + + | | [facility], TRANSFUSION MEDICINE [address] | | | [place] [address] | + + + PRODUCT - RED CELLS LEUKOREDUCED (09/01/2017 9:08 AM) + + + + | Component | Value | Ref Range | + + + + | PRODUCT DESCRIPTION | -1 RED BLOOD CELL ADENINE-SALINE ADDED | | | | LEUKOCYTE | | + + + + | PRODUCT UNIT # | [id number] | | + + + + | UNIT ABO | O | | + + + + | UNIT RH | POS | | + + + + | STATUS OF UNIT | Presumed Transfused | | + + + + | EXPIRATION DATE | [id number] | | + + + + | BLOOD TYPE BARCODE | 5100 | | + + + + | BLOOD PRODUCT CODE | [id number] | | + + + + + + + | Specimen | Performing Laboratory | + + + | | [facility], TRANSFUSION MEDICINE [address] | | | [place] [address] | + + + PRODUCT - RED CELLS LEUKOREDUCED (09/01/2017 9:08 AM) + + + + | Component | Value | Ref Range | + + + + | PRODUCT DESCRIPTION | -1 RED BLOOD CELL ADENINE-SALINE ADDED | | | | LEUKOCYTE | | + + + + | PRODUCT UNIT # | [id number] | | + + + + | UNIT ABO | O | | + + + + | UNIT RH | POS | | + + + + | STATUS OF UNIT | Presumed Transfused | | + + + + | EXPIRATION DATE | [id number] | | + + + + | BLOOD TYPE BARCODE | 5100 | | + + + + | BLOOD PRODUCT CODE | [id number] | | + + + + + + + | Specimen | Performing Laboratory | + + + | | [facility], TRANSFUSION MEDICINE [address] | | | [place] [address] | + + + PRODUCT - RED CELLS LEUKOREDUCED (09/01/2017 9:08 AM) + + + + | Component | Value | Ref Range | + + + + | PRODUCT DESCRIPTION | -1 RED BLOOD CELL ADENINE-SALINE ADDED | | | | LEUKOCYTE | | + + + + | PRODUCT UNIT # | [id number] | | + + + + | UNIT ABO | O | | + + + + | UNIT RH | POS | | + + + + | STATUS OF UNIT | Presumed Transfused | | + + + + | EXPIRATION DATE | [id number] | | + + + + | BLOOD TYPE BARCODE | 5100 | | + + + + | BLOOD PRODUCT CODE | [id number] | | + + + + + + + | Specimen | Performing Laboratory | + + + | | [facility], TRANSFUSION MEDICINE [address] [facility] | | | [place] [address] | + + + PRODUCT - FRESH FROZEN PLASMA (09/01/2017 9:08 AM) + + + + | Component | Value | Ref Range | + + + + | PRODUCT DESCRIPTION | PLASMA THAWED | | + + + + | PRODUCT UNIT # | [id number] | | + + + + | UNIT ABO | B | | + + + + | UNIT RH | POS | | + + + + | STATUS OF UNIT | Presumed Transfused | | + + + + | EXPIRATION DATE | [id number] | | + + + + | BLOOD TYPE BARCODE | 7300 | | + + + + | BLOOD PRODUCT CODE | [id number] | | + + + + + + + | Specimen | Performing Laboratory | + + + | | [facility], TRANSFUSION MEDICINE [address] | | | [place] [address] | + + + PRODUCT - FRESH FROZEN PLASMA (09/01/2017 9:08 AM) + + + + | Component | Value | Ref Range | + + + + | PRODUCT DESCRIPTION | PLASMA THAWED | | + + + + | PRODUCT UNIT # | [id number] | | + + + + | UNIT ABO | B | | + + + + | UNIT RH | POS | | + + + + | STATUS OF UNIT | Presumed Transfused | | + + + + | EXPIRATION DATE | [id number] | | + + + + | BLOOD TYPE BARCODE | 7300 | | + + + + | BLOOD PRODUCT CODE | [id number] | | + + + + + + + | Specimen | Performing Laboratory | + + + | | [facility], TRANSFUSION MEDICINE [address] [facility] | | | [place] [address] | + + + PRODUCT - FRESH FROZEN PLASMA (09/01/2017 9:08 AM) + + + + | Component | Value | Ref Range | + + + + | PRODUCT DESCRIPTION | PLASMA THAWED | | + + + + | PRODUCT UNIT # | [id number] | | + + + + | UNIT ABO | B | | + + + + | UNIT RH | POS | | + + + + | STATUS OF UNIT | Presumed Transfused | | + + + + | EXPIRATION DATE | [id number] | | + + + + | BLOOD TYPE BARCODE | 7300 | | + + + + | BLOOD PRODUCT CODE | [id number] | | + + + + + + + | Specimen | Performing Laboratory | + + + | | [facility], TRANSFUSION MEDICINE [address] [facility] | | | [place] [address] | + + + PRODUCT - FRESH FROZEN PLASMA (09/01/2017 9:08 AM) + + + + | Component | Value | Ref Range | + + + + | PRODUCT DESCRIPTION | THAWED APHERESIS PLASMA | | + + + + | PRODUCT UNIT # | [id number] | | + + + + | UNIT ABO | B | | + + + + | UNIT RH | POS | | + + + + | STATUS OF UNIT | Presumed Transfused | | + + + + | EXPIRATION DATE | [id number] | | + + + + | BLOOD TYPE BARCODE | 7300 | | + + + + | BLOOD PRODUCT CODE | [id number] | | + + + + + + + | Specimen | Performing Laboratory | + + + | | [facility], TRANSFUSION MEDICINE [address] [facility] | | | [place] [address] | + + + CT HEAD WO CONTRAST (09/01/2017 8:42 AM) + + + | Specimen | Performing Laboratory | + + + | | [facility] VOICE RECOGNITION | + [...] + + | PRODUCT UNIT # | [id number] | | + + + + | UNIT ABO | O | | + + + + | UNIT RH | POS | | + + + + | STATUS OF UNIT | Presumed Transfused | | + + + + | EXPIRATION DATE | [id number] | | + + + + | BLOOD TYPE BARCODE | 5100 | | + + + + | BLOOD PRODUCT CODE | [id number] | | + + + + + + + | Specimen | Performing Laboratory | + + + | | [facility], TRANSFUSION MEDICINE [address] | | | [place] [address] | + + + LACTATE (09/01/2017 5:29 AM) + +-------+ + | Component | Value | Ref Range | + +-------+ + | LACTATE | 1.2 | mmol/L | + +-------+ + + + + | Specimen | Performing Laboratory | + + + | Blood | [facility], CORE [address] [facility] | | | [place] [address] | + + + + + | [...] | + + + | Blood | [facility], CORE [address] [facility] | | | [facility] [address] | + + + MRI SPINE CERVICAL/THORACIC WO CONTRAST (09/01/2017 3:53 AM) + + + | Specimen | Performing Laboratory | + + + | | [facility] RAD[facility] VOICE RECOGNITION | + [...] | injured. Discussed with trauma ICU international freight forwarder by Dr. Yang at 4:38 AM. I have | | personally reviewed the images and, if necessary, edited the report. I agree with | | the report as now presented. | + + + + | Procedure Note | + + | Service Account, [employer] Res In Interface - 09/01/2017 10:10 AM [...] ligament is injured.Discussed with trauma ICU international freight forwarder | | by Dr. Yang at 4:38 AM.I have personally reviewed the images and, if necessary, | | edited the report. I agree with the report as now presented. | |3. Extensive soft tissue edema extending into the cervical and upper thoracic interspinous space, suggestive of interspinous ligament is injured. | | | |Discussed with trauma ICU international freight forwarder by Dr. Yang at 4:38 AM. | [...] | >60 | >60 mL/min | | OMANI | | | + +---------+ + | EGFR NON | >60 | >60 mL/min | | -OMANI | | | + +---------+ + | [...] | + + + | Blood | [facility], CORE [address] [facility] | | | [place] [address] | + + + + + | [...] | + + + | Blood | [facility], CORE [address] [facility] | | | [place] [address] | + + + + + | [...] | + + + | Blood | [facility], CORE [address] | | | [place] [address] | + + + LACTATE (09/01/2017 1:32 AM) + +-------+ + | Component | Value | Ref Range | + +-------+ + | LACTATE | 1.4 | mmol/L | + +-------+ + + + + | Specimen | Performing Laboratory | + + + | Blood | [facility], CORE [address] [facility] | | | [place] [address] | + + + + + | [...] | | ------ CBC (HEMOGRAM) | | ONLY[[id number]] Abnormal Final | | result Please view [...] pleural spaced was performed. A 32 size Israeli chest tube was placed into the | [...] Laboratory | + + + | | [facility] RAD[facility] VOICE RECOGNITION | + [...] ventricles. Discussed with the trauma ICU international freight forwarder at 12:[address] Yang. | [...] with | | the trauma ICU international freight forwarder at 12:[address] Yang.I have [...] | |Discussed with the trauma ICU international freight forwarder at 12:[address] Yang. | [...] [address] | | | [place] [address] | + + + + + | [...] | + + + | Blood | [facility], CORE [address] [facility] | | | [place] [address] | + + + LACTATE (08/31/2017 9:19 PM) + +-------+ + | Component | Value | Ref Range | + +-------+ + | LACTATE | 2.2 | mmol/L | + +-------+ + + + + | Specimen | Performing Laboratory | + + + | Blood | [facility], CORE [address] [facility] | | | [place] [address] | + + + + + | [...] Note | + + | Service Account, [employer] Res In Interface - 09/01/2017 1:50 PM [...] Laboratory | + + + | | [facility] RAD[facility] VOICE RECOGNITION | + [...] Laboratory | + + + | | [facility] RAD[facility] VOICE RECOGNITION | + [...] | + + + | Blood | [facility], CORE [address] [facility] | | | [place] [address] | + + + X-RAY PORTABLE CHEST 1 VIEW (08/31/2017 7:07 PM) + + + | Specimen | Performing Laboratory | + + + | | [facility] RAD[facility] VOICE RECOGNITION | + + + + + | Narrative | + + | STUDY: OK CHEST 1 [...] | + + + | Blood | [facility], CORE [address] | | | [place] [address] | + + + CTA NECK W CONTRAST (08/31/2017 6:27 PM) + + + | Specimen | Performing Laboratory | + + + | | [facility] RAD[facility] VOICE RECOGNITION | + [...] Laboratory | + + + | | [facility] RAD[facility] VOICE RECOGNITION | + [...] Note | + + | Service Account, [employer] Res In Interface - 09/01/2017 10:12 AM [...] rib, nondisplaced-Left | | 1st rib fracture, dbqodiecoake-Cqs-rsvsqwvjg left lateral 8th rib fracture-T12 fracture | [...] Note | + + | Service Account, [employer] Res In Interface - 08/31/2017 8:10 PM [...] Laboratory | + + + | | [facility] RAD[facility] VOICE RECOGNITION | + [...] | + + + | Blood | [facility], TRANSFUSION MEDICINE [address] [facility] | | | [place] [address] | + + + ABO & RH [...] | + + + | Blood | [facility] SERVICES, TRANSFUSION MEDICINE [address] [place] [address] | | | [place] [address] | + + + TYPE AND SCREEN [...] | ------ ABO & RH | | TYPE[[id number]] F | | inal result ANTIBODY | | SCREEN[[id number]] Fin | | al result Please view [...] | + + + | Blood | [facility] SERVICES, TRANSFUSION MEDICINE [address] [place] [address] | | | [place] [address] | + + + THROMBELASTOGRAPH, POC (08/31/2017 [...] | Blood | [facility] [address] | | | [place] [address] | + + + + + | [...] | + + + | Blood | [facility], POINT [facility] CARE TESTS [address] [facility] [address] | | | [place] [address] | + + + + + | [...] [address] | | | [place] [address] | + + + ED BG-LAC,POC (08/31/2017 [...] Laboratory | + + + | | [facility], POINT OF CARE TESTS [address] | | | [place] [address] | + + + PRODUCT - RED CELLS LEUKOREDUCED (08/31/2017 5:06 PM) + + + + | Component | Value | Ref Range | + + + + | PRODUCT DESCRIPTION | -1 RED BLOOD CELL ADENINE-SALINE ADDED | | | | LEUKOCYTE | | + + + + | PRODUCT UNIT # | [id number] | | + + + + | UNIT ABO | O | | + + + + | UNIT RH | POS | | + + + + | STATUS OF UNIT | Returned to Blood Bank | | + + + + | EXPIRATION DATE | [id number] | | + + + + | BLOOD TYPE BARCODE | 5100 | | + + + + | BLOOD PRODUCT CODE | [id number] | | + + + + + + + | Specimen | Performing Laboratory | + + + | | [facility], TRANSFUSION MEDICINE [address] | | | [place] [address] | + + + PRODUCT - RED CELLS LEUKOREDUCED (08/31/2017 5:06 PM) + + + + | Component | Value | Ref Range | + + + + | PRODUCT DESCRIPTION | -1 RED BLOOD CELL ADENINE-SALINE ADDED | | | | LEUKOCYTE | | + + + + | PRODUCT UNIT # | [id number] | | + + + + | UNIT ABO | O | | + + + + | UNIT RH | POS | | + + + + | STATUS OF UNIT | Presumed Transfused | | + + + + | EXPIRATION DATE | [id number] | | + + + + | BLOOD TYPE BARCODE | 5100 | | + + + + | BLOOD PRODUCT CODE | [id number] | | + + + + + + + | Specimen | Performing Laboratory | + + + | | [facility], TRANSFUSION MEDICINE [address] [facility] | | | [place] [address] | + + + PRODUCT - RED CELLS LEUKOREDUCED (08/31/2017 5:06 PM) + + + + | Component | Value | Ref Range | + + + + | PRODUCT DESCRIPTION | -1 RED BLOOD CELL ADENINE-SALINE ADDED | | | | LEUKOCYTE | | + + + + | PRODUCT UNIT # | [id number] | | + + + + | UNIT ABO | O | | + + + + | UNIT RH | POS | | + + + + | STATUS OF UNIT | Returned to Blood Bank | | + + + + | EXPIRATION DATE | [id number] | | + + + + | BLOOD TYPE BARCODE | 5100 | | + + + + | BLOOD PRODUCT CODE | [id number] | | + + + + + + + | Specimen | Performing Laboratory | + + + | | [facility], TRANSFUSION MEDICINE [address] | | | [place] [address] | + + + PRODUCT - RED CELLS LEUKOREDUCED (08/31/2017 5:06 PM) + + + + | Component | Value | Ref Range | + + + + | PRODUCT DESCRIPTION | -1 RED BLOOD CELL ADENINE-SALINE ADDED | | | | LEUKOCYTE | | + + + + | PRODUCT UNIT # | [id number] | | + + + + | UNIT ABO | O | | + + + + | UNIT RH | POS | | + + + + | STATUS OF UNIT | Presumed Transfused | | + + + + | EXPIRATION DATE | [id number] | | + + + + | BLOOD TYPE BARCODE | 5100 | | + + + + | BLOOD PRODUCT CODE | [id number] | | + + + + + + + | Specimen | Performing Laboratory | + + + | | [facility], TRANSFUSION MEDICINE [address] | | | [place] [address] | + + + PRODUCT - FRESH FROZEN PLASMA (08/31/2017 5:05 PM) + + + + | Component | Value | Ref Range | + + + + | PRODUCT DESCRIPTION | LIQUID PLASMA, IRRADIATED | | + + + + | PRODUCT UNIT # | [id number] | | + + + + | UNIT ABO | A | | + + + + | UNIT RH | POS | | + + + + | STATUS OF UNIT | Presumed Transfused | | + + + + | EXPIRATION DATE | [id number] | | + + + + | BLOOD TYPE BARCODE | 6200 | | + + + + | BLOOD PRODUCT CODE | [id number] | | + + + + + + + | Specimen | Performing Laboratory | + + + | | [facility], TRANSFUSION MEDICINE [address] [facility] | | | [place] [address] | + + + PRODUCT - FRESH FROZEN PLASMA (08/31/2017 5:05 PM) + + + + | Component | Value | Ref Range | + + + + | PRODUCT DESCRIPTION | LIQUID PLASMA, IRRADIATED | | + + + + | PRODUCT UNIT # | [id number] | | + + + + | UNIT ABO | A | | + + + + | UNIT RH | POS | | + + + + | STATUS OF UNIT | Presumed Transfused | | + + + + | EXPIRATION DATE | [id number] | | + + + + | BLOOD TYPE BARCODE | 6200 | | + + + + | BLOOD PRODUCT CODE | [id number] | | + + + + + + + | Specimen | Performing Laboratory | + + + | | [facility] SERVICES, TRANSFUSION MEDICINE [address] | | | [place] [address] | + + + PRODUCT - FRESH FROZEN PLASMA (08/31/2017 5:05 PM) + + + + | Component | Value | Ref Range | + + + + | PRODUCT DESCRIPTION | LIQUID PLASMA, IRRADIATED | | + + + + | PRODUCT UNIT # | [id number] | | + + + + | UNIT ABO | A | | + + + + | UNIT RH | POS | | + + + + | STATUS OF UNIT | Returned to Blood Bank | | + + + + | EXPIRATION DATE | [id number] | | + + + + | BLOOD TYPE BARCODE | 6200 | | + + + + | BLOOD PRODUCT CODE | [id number] | | + + + + + + + | Specimen | Performing Laboratory | + + + | | [facility], TRANSFUSION MEDICINE [address] | | | [place] [address] | + + + PRODUCT - FRESH FROZEN PLASMA (08/31/2017 5:05 PM) + + + + | Component | Value | Ref Range | + + + + | PRODUCT DESCRIPTION | LIQUID PLASMA, IRRADIATED | | + + + + | PRODUCT UNIT # | [id number] | | + + + + | UNIT ABO | A | | + + + + | UNIT RH | POS | | + + + + | STATUS OF UNIT | Returned to Blood Bank | | + + + + | EXPIRATION DATE | [id number] | | + + + + | BLOOD TYPE BARCODE | 6200 | | + + + + | BLOOD PRODUCT CODE | [id number] | | + + + + + + + | Specimen | Performing Laboratory | + + + | | [facility], TRANSFUSION MEDICINE [address] | | | [place] [address] | + + + CBC (HEMOGRAM) ONLY [...] | + + + | Blood | [facility], CORE [address] [facility] | | | [place] [address] | + + + BASIC METABOLIC SET [...] | >60 | >60 mL/min | | OMANI | | | + +---------+ + | EGFR NON | >60 | >60 mL/min | | -OMANI | | | + +---------+ + | [...] | + + + | Blood | [facility], CORE [address] [facility] | | | [place] [address] | + + + + + | [...] | + + + | Blood | [facility], CORE [address] | | | [place] [address] | + + + + + | [...] | | ------ CBC (HEMOGRAM) | | ONLY[[id number]] Abnormal Final | | result Please view [...] | + + + | Blood | [facility], CORE [address] [facility] | | | [place] [address] | + + + PHOSPHORUS, PLASMA (08/31/2017 4:50 PM) + +-------+ + | Component | Value | Ref Range | + +-------+ + | PHOSPHORUS, PLASMA | 4.0 | 2.4 - 4.7 mg/dL | | (LAB) | | | + +-------+ + + + + | Specimen | Performing Laboratory | + + + | Blood | [facility], CORE [address] [place] [address] | | | [place] [address] | + + + MAGNESIUM, PLASMA (08/31/2017 4:50 PM) + +---------+ + | Component | Value | Ref Range | + +---------+ + | MAGNESIUM,PLASMA | 1.5 (L) | 1.6 - 2.6 mg/dL | + +---------+ + + + + | Specimen | Performing Laboratory | + + + | Blood | [facility], CORE [address] [place] [address] | | | [place] [address] | + + + + + | [...] mL, intravenous, NEEDED, | | | Starting [facility] 09/26/17 at 0029, | | | Until [...]
--- OUTSIDE RECORDS SUMMARY | ~2017-12-10 | XMS | Encounter Summary ---
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 the assessement and plan a s outlined in her note. Will consider changing to bolus TF. Plan Gabriel-oconnor tube next week. Chaz Munoz MD, FACS Neurology Physician, Trauma, Critical Care and Acute Care Surgery [...] p atient unable to come out fo ANTIQUE COLLECTOR for now Resolved or chronic issues/Plan: #Previous [...] by patient, but wound remains duke n/dry/intact. [place] removed 09/17. #Left hemothorax Chest tube placed [...] issues, including restraints. Venita Pruitt PA-C [place] [phone] [place] [phone] [facility] [place] [address] [place] [address] [phone] Associated attestation - Em Cunningham MD - 10/17/2017 10:13 AM PDTI was present and rou nded with the Advanced Practice Provider today . I interviewed and examined the patient. I reviewed the history, as documented today. I agree with the ASHLEY assessment and plan. TBI has remained stable. On lovenox. Will continue haldol per psych.. EM CUNNINGHAM MD [facility] [address] [place] [address] Venita Pruitt PA-C - 10/05/2017 8:38 AM [...] p atient unable to come out fo ANTIQUE COLLECTOR for now Resolved or chronic issues/Plan: #Previous [...] by patient, but wound remains duke n/dry/intact. [place] removed 09/17. #Left hemothorax Chest tube placed [...] issues, including restraints. Venita Pruitt PA-C [place] [phone] [facility] & [place] [address] [place] [address] [phone] Associated attestation - Shlomo Rosenthal MD - 10/06/2017 7:28 AM PDTFormatting of this note m ay be different from the original. I saw and examined Berlin Temple ([id number]) with the TRAUMA team on 10/05/2017. I [...] incen tive spirometry for pulmonary toliet. manager equipment for disposition planning and placement. Shlomo Rosenthal MD [facility] Division of Trauma and Critical Care Venita [...] (baseline from previous TBI ) Neck: in [place] collar Respiratory: CTA b.l CV: RRR GI: [...] p atient unable to come out fo ANTIQUE COLLECTOR for now Resolved or chronic issues/Plan: #Previous [...] by patient, but wound remains duke n/dry/intact. [place] removed 09/17. #Left hemothorax Chest tube placed [...] issues, including restraints. Venita Pruitt PA-C [place] [phone] [facility] [place] [address] [facility] [place] [facility] [phone] Associated attestation - Fidelina Shields MD - [...] and only enteral access. Fidelina Shields MD Neurology Physician Division of Trauma, Critical Care and Acute Care Surgery Office: [phone] Pager: [phone] Leonor Torres ACNP - 10/03/2017 3:13 PM [...] (baseline from previous TBI ) Neck: in [place] collar Respiratory: CTA bilaterally, no distress CV: [...] p atient unable to come out fo ANTIQUE COLLECTOR for now Resolved or chronic issues/Plan: Previous [...] PDTAttending: I saw and examined Berlin Temple ([id number]) with CB Hair on morning rounds 10/03 and agree with the assessment and plan as outlined in this note and participated in the planning of care. Mental status is slightly better, remains sedated but he is interactive and at least somewh at oriented. Enteral nutrition advancing and, as approaches goal, will turn TPN off. Place ment remains a significant issue. Fidelina Shields MD Neurology Physician Division of Trauma, Critical Care and Acute Care Surgery Office: [phone] Pager: [phone] July Banegas PA-C - 10/03/2017 12:58 PM [...] the C-collar when in bed then the ANTIQUE COLLECTOR when out of bed until 12/01/17. JULY BANEGAS PA-C [facility] [address] [place] [address] Associated attestation - Magdiel Stock MD - 10/04/2017 6:02 PM PDTI performed a history a nd physical examination of the patient and discussed the management with the advanced practi ce provider, July Banegas PA-C. I reviewed the advanced practice provider's note and agree w ith the plan of care as documented. Continue cervical collar and ANTIQUE COLLECTOR for 3 months to ensure fracture healing and prevent development of post-fracture cervical kyphosis. Magdiel Stock MD Neurology Physician Department of Neurological Surgery [facility] Sherine Sarmiento AGACNP - 10/02/2017 12:54 [...] (baseline from previous TBI ) Neck: in [place] collar Respiratory: CTA bilaterally, lungs symmetrical, equal chest wall rise, no retractions CV: RRR GI: non tender, soft, active BS, last BM 09/30 : Patient voiding without difficulty Extremities: no peripheral edema, wiggles toes and toes pink and well perfused Musculoskeletal: 5/5 worship director strength on right, 3/5 worship director strength on left FEN: on TPN, transitioning [...] AMS & delirium - numerous evaluations by SNOWBOARD INSTRUCTOR with trials of PO - now s/p [...] . - C-collar at all times, use ANTIQUE COLLECTOR when OOB - Follow-up with Neurosurgery on 10/21 with repeat X-rays #Blunt abdominal trauma #Splenic laceration S/p laparotomies x2. Fascia closed 09/02 Wound vac removed by patient, but wound remains duke n/dry/intact. [place] removed 09/17. #Left hemothorax Chest tube placed [...] will decrease [place]g [phone] Associated attestation - Fidelina Shields MD - 10/02/2017 4:40 PM PDTAttending: I saw and examined Berlin Temple ([id number]) with KESHAWN Alexander on mornin g rounds [...] drawn back to midline position. May need postie enteral access , but is ~4 weeks s/p damage control laparotomy and risk is higher now than it will be in 7- 14 days and if swallow is not improving then will place prior to DC Fidelina Shields MD Neurology Physician Division of Trauma, Critical Care and Acute Care Surgery Office: [phone] Pager: [phone] Sherine Sarmiento, AGACN - 10/01/2017 7:27 AM [...] (baseline from previous TBI ) Neck: in [place] collar Respiratory: CTA bilaterally, lungs symmetrical, equal chest wall rise, no retractions CV: RRR GI: non tender, soft, active BS, last BM 09/30 : Patient voiding without difficulty Extremities: no peripheral edema, wiggles toes and toes pink and well perfused Musculoskeletal: 5/5 worship director strength on right, 3/5 worship director strength on left FEN: on TPN Heme/ID: [...] AMS & delirium - numerous evaluations by SNOWBOARD INSTRUCTOR with trials of PO - now s/p modified barium swallow x2 which indicates aspiration - continue NPO - SNOWBOARD INSTRUCTOR reports that patient working on tongue strength [...] . - C-collar at all times, use ANTIQUE COLLECTOR when OOB - Follow-up with Neurosurgery on 10/21 with repeat X-rays #Blunt abdominal trauma #Splenic laceration S/p laparotomies x2. Fascia closed 09/02 Wound vac removed by patient, but wound remains duke n/dry/intact. [place] removed 09/17. #Left hemothorax Chest tube placed [...] trauma team and [place]g [phone] Associated attestation - Fidelina Shields MD - 10/02/2017 4:40 PM PDTAttending: I saw and examined Berlin Temple ([id number]) with KESHAWN Alexander on mornin g rounds 10/01/17 and agree with the assessment and plan as outlined in this note and partic ipated in the planning of care. Will trial DHT placement today, CT head unchanged. Suspect somnolence is medication side ef fect and, if persistent, may need to wean antipsychotic doses. Fidelina Shields MD Neurology Physician Division of Trauma, Critical Care and Acute Care Surgery Office: [phone] Pager: [phone] Christian Kelley PA-C - 09/30/2017 12:21 PM [...] Fixed and dilated on left Neck: in [place] collar Respiratory: CTA bilaterally, lungs symmetrical, equal chest wall rise, no retractions CV: RRR GI: non tender, soft, active BS, last BM 09/30 : Patient voiding without difficulty Extremities: no peripheral edema, wiggles toes and toes pink and well perfused Musculoskeletal: 5/5 worship director strength on right, 3/5 worship director strength on left FEN: on TPN Heme/ID: [...] AMS & delirium - numerous evaluations by SNOWBOARD INSTRUCTOR with trials of PO - now s/p modified barium swallow x2 which indicates aspiration - continue NPO - SNOWBOARD INSTRUCTOR reports that patient working on tongue strength [...] . - C-collar at all times, use ANTIQUE COLLECTOR when OOB - Follow-up with Neurosurgery on [...] PDTAttending: I saw and examined [place] Temple ([id number]) with Christian Kelley PA-C on morning rounds 09/30 and agree with the assessment and plan as outlined in this note and participated in the planning of care. Mentally slower this morning, but non-focal. Received haldol overnight for sleep. Repeat head CT was unchanged so suspect etiology of slowed responsiveness is the antipsychotic dose . SNOWBOARD INSTRUCTOR believes that, once collar off, may be able to take PO more effectively and thus will hold off on surgical feeding access. TPN is a temporary solution and if patient remains kaye nable will trial DHT tomorrow. Working with psychiatry for medication recommendations. Fidelina Shields MD Neurology Physician Division of Trauma, Critical Care and Acute Care Surgery Office: [phone] Pager: [phone] July Banegas PA-C - 09/30/2017 8:23 AM PDTBrief Neurosurgery Wound Check: Wound is dry, without erythema, not fluctuant. No acute swelling. Nylon in place. Will plan to follow peripherally for wound checks and remove nylons on 10/09. JULY BANEGAS PA-C [facility] [address] [place] [address] Christian Kelley PA-C - 09/29/2017 7:15 AM [...] and EOMs intact to exam Neck: in [place] collar Respiratory: CTA bilaterally, lungs symmetrical, equal [...] AMS & delirium - numerous evaluations by SNOWBOARD INSTRUCTOR with trials of PO - now s/p [...] . - C-collar at all times, use ANTIQUE COLLECTOR when OOB - Follow-up with Neurosurgery on 10/21 with repeat X-rays #Blunt abdominal trauma #Splenic laceration S/p laparotomies x2. Fascia closed 09/02 Wound vac removed by patient, but wound remains duke n/dry/intact. [place] removed 09/17. #Left hemothorax Chest tube placed [...] PDTAttending: I saw and examined Berlin Temple ([id number]) with Christian Kelley PA-C on morning rounds 09/29 and agree with the assessment and plan as outlined in this note and participated in the planning of care. Late entry for 09/29/17. Persistent alterations in conscious and dysphagia. Hopefully with ongoing speech therapy a nd when clear to take c-collar off, will improve ability to take PO. While TPN is not an opt imal postie strategy, would prefer not to place surgical feeding tube if possible given r elatively recent damage control laparotomy and high risk of Mr. Temple pulling it out. Have tried DHT several times and it seems to worsen delirium and he pulls it out frequently. Tit ration of haldol in conjunction with psychiatry. Fidelina Shields MD Neurology Physician Division of Trauma, Critical Care and Acute Care Surgery Office: [phone] Pager: [phone] Christian Kelley PA-C - 09/28/2017 1:01 PM [...] he said, who, ariel? And then the ABLE SEAMAN helped him make a call to her. [...] and EOMs intact to exam Neck: in [place] collar Respiratory: CTA bilaterally, lungs symmetrical, equal [...] very agitated today. - EKG today with [place] QTc calculated to be 428 - optimize [...] AMS & delirium - numerous evaluations by SNOWBOARD INSTRUCTOR with trials of PO - now s/p [...] . - C-collar at all times, use ANTIQUE COLLECTOR when OOB - Follow-up with Neurosurgery on 10/21 with repeat X-rays #Blunt abdominal trauma #Splenic laceration S/p laparotomies x2. Fascia closed 09/02 Wound vac removed by patient, but wound remains duke n/dry/intact. [place] removed 09/17. #Left hemothorax Chest tube placed [...] more toda y. Chaz Munoz MD, FACS Neurology Physician, Trauma, Critical Care and Acute Care Surgery Chaz Munoz MD - 09/28/2017 10:13 AM PDTTrauma Staff Seen and examined this AM with team. I have concerns abotu behaviour, as he is consistently threatening RN and ancillary staff, even attempting swings. Behavior seems worse at night. I would favor increasing night time Haldol dose, and following EKGs. Chaz Munzo MD, FACS Neurology Physician, Trauma, Critical Care and Acute Care Surgery [...] Dallin Bourgeois MD Neurosurgery PGY1 | Pager #[phone] Christian Kelley PA-C - 09/27/2017 7:31 AM [...] able to have a linear conversation briefly SNOWBOARD INSTRUCTOR requesting repeat barium swallow Current meds: I [...] incision healing , suture c/d/I Neck: in ANTIQUE COLLECTOR Respiratory: unlabored on room air, lungs symmetrical, [...] AMS & delirium - numerous evaluations by SNOWBOARD INSTRUCTOR with trials of PO - now s/p [...] . - C-collar at all times, use ANTIQUE COLLECTOR when OOB - Follow-up with Neurosurgery on 10/21 with repeat X-rays #Blunt abdominal trauma #Splenic laceration S/p laparotomies x2. Fascia closed 09/02 Wound vac removed by patient, but wound remains duke n/dry/intact. [place] removed 09/17. #Left hemothorax Chest tube placed [...] for now. EM CUNNINGHAM MD [facility] [address] [place] [address] Christian Kelley PA-C - 09/26/2017 6:48 AM [...] posterior scalp crani incision c/d/I Neck: in [place] collar Respiratory: unlabored on room air CV: [...] AMS & delirium - numerous evaluations by SNOWBOARD INSTRUCTOR with trials of PO - now s/p [...] . - C-collar at all times, use ANTIQUE COLLECTOR when OOB - Follow-up with Neurosurgery on 10/21 with repeat X-rays #Blunt abdominal trauma #Splenic laceration S/p laparotomies x2. Fascia closed 09/02 Wound vac removed by patient, but wound remains duke n/dry/intact. [place] removed 09/17. #Left hemothorax Chest tube placed [...] and TPN. EM CUNNINGHAM MD [facility] [address] [place] [address] Christian Kelley PA-C - 09/25/2017 7:49 AM [...] HEENT: EOMs intact to exam Neck: in ANTIQUE COLLECTOR brace Respiratory: unlabored on room air CV: [...] AMS & delirium - numerous evaluations by SNOWBOARD INSTRUCTOR with trials of PO - now s/p [...] . - C-collar at all times, use ANTIQUE COLLECTOR when OOB - Follow-up with Neurosurgery on [...] LFTS wnl. Continue TPN. EM CUNNINGHAM MD [facility] [address] [place] [address] Christian Kelley PA-C - 09/24/2017 11:07 AM [...] with agitation Having difficulty swallowing again - SNOWBOARD INSTRUCTOR to re-eval and obtain barium swallow Current [...] HEENT: EOMs intact to exam Neck: in ANTIQUE COLLECTOR brace Respiratory: CTA bilaterally, lungs symmetrical, equal chest wall rise, no retractions CV: RRR GI: non distended, last BM 09/23 : good urine output Extremities: SCD's in place, no peripheral edema, wiggles toes and toes pink and well perfu sed Musculoskeletal: 5/5 strength in bilateral worship director (but with slightly weaker on left) , [...] PRN seroquel dose QHS for insomnia/restlessness at [facility] - Haldol 5mg q12hr prn for severe [...] likely 2/2 AMS & delirium - Failed SNOWBOARD INSTRUCTOR eval 09/19 & 09/20, made NPO & dobhoff reinserted 09/21 but pulled overnight - Per SNOWBOARD INSTRUCTOR on 09/21, ok for therapeutic pureed with [...] . - C-collar at all times, use ANTIQUE COLLECTOR when OOB - Follow-up with Neurosurgery on [...] care, continue TPN, barium swallow pending CHRISTIAN KLELEY PA-C Associated attestation - Em Cunningham MD [...] for dehiscence. EM CUNNINGHAM MD [facility] [address] [place] [address] Ginette Campos PA-C - 09/24/2017 9:31 AM [...] 4 extremities Unable to assess drift. Motor: Wheat Cleaner Bicep Tricep Delt R 5 5 5 [...] or concerns. Ginette Campos PA-C [facility] [address] [place] [address] Pg [phone] Sherine Sarmiento, [facility] - 09/23/2017 6:32 AM PDTFormatting of this [...] hiscence, draining minimal serosang fluid Neck: in ANTIQUE COLLECTOR brace Respiratory: unlabored on room air CV: [...] PRN seroquel dose QHS for insomnia/restlessness at [facility] - Repeat ECG 09/22 with QTc WNL. [...] likely 2/2 AMS & delirium - Failed SNOWBOARD INSTRUCTOR eval 09/19 & 09/20, made NPO & dobhoff reinserted 09/21 but pulled overnight - Per SNOWBOARD INSTRUCTOR on 09/21, ok for therapeutic pureed with [...] . - C-collar at all times, use ANTIQUE COLLECTOR when OOB - Follow-up with Neurosurgery on [...] ium improves Sherine Sarmiento, [facility] [place] [phone] Dallin Bourgeois MD - 09/22/2017 8:03 AM [...] Dallin Bourgeois MD Neurosurgery PGY1 | Pager #[phone] Sherine Sarmiento, AGACN - 09/22/2017 6:52 AM [...] 24hr events: - Therapeutic purees initiated by SNOWBOARD INSTRUCTOR yesterday - Trickle feeds via Dobbhoff, pt pulled Dobbhoff yesterday evening- not replaced - SIMULATION ANALYST called around 0 for new left facial droop (see separate notes), CT revealed increa se in SDH from 12 to 17mm with no change in midline shift. [facility] - NSG and stroke [...] sluggish. Slight left facial droop Neck: in [place] collar Respiratory: unlabored on room air CV: [...] PRN seroquel dose QHS for insomnia/restlessness at [facility]- - Repeat ECG 09/22 with Q Tc WNL. - Haldol 5mg q12hr prn for severe agitation #Substance abuse, concern for Alcohol withdrawal - CIWA discontinued 09/08, not scoring. - Thiamine & folate started 09/21 #Dysphagia, risk for aspiration #Protein calorie malnutirtion - likely 2/2 AMS & delirium - Failed SNOWBOARD INSTRUCTOR eval 09/19 & 09/20, made NPO & dobhoff reinserted 09/21 but pulled overnight - Per SNOWBOARD INSTRUCTOR on 09/21, ok for therapeutic pureed with [...] . - C-collar at all times, use ANTIQUE COLLECTOR when OOB - Follow-up with Neurosurgery on [...] delirium improves Sherine Sarmiento, [facility] [place]g [phone] Associated attestation - Shiva Nieto MD,MPH - [...] Care Surgery [facility] [phone] Sami Black - 09/21/2017 10:25 PM PDTBrief [...] in the morning. Plan: -neuro checks; page [phone] for any decline in neurological examination -pain control -Hard C collar at all times and place ANTIQUE COLLECTOR prior to mobilizing OOB. Anticipated duration of Collar/ANTIQUE COLLECTOR is 12 weeks -repeat CT head for any new decline in neurological exam and page [phone] -NPO at midnight tonight -please hold tonight's planned dose of Lovenox -further recommendations in the morning Sami Black MD, PhD PGY-3 Resident Neurosurgery [id number] estrella AGACNP - 09/21/2017 7:10 AM PDTFormatting [...] Provena placem ent 24hr events: - Failed SNOWBOARD INSTRUCTOR eval again yest morning, continued NPO - [...] reactive. Dobbhoff tube in place Neck: in [place] collar Respiratory: unlabored on room air CV: [...] likely 2/2 AMS & delirium - Failed SNOWBOARD INSTRUCTOR eval 09/19 & 09/20, made NPO & dobhoff reinserted yesterday - Trickle feeds started this am at 20ml/hr, increase very slowly by 10ml every 12 hrs to go al of 75 due to hx of mesenteric hematomas and previous inability to tolerate TF - Per SNOWBOARD INSTRUCTOR today, ok for therapeutic pureed with nectar [...] . - C-collar at all times, use ANTIQUE COLLECTOR when OOB - Follow-up with Neurosurgery on 10/21 with repeat X-rays #Blunt abdominal trauma #Splenic laceration S/p laparotomies x2. Fascia closed 09/02 Wound vac removed by patient, but wound remains duke n/dry/intact. [place] removed 09/17. #Left hemothorax Chest tube placed [...] & delirium [place] [phone] Associated attestation - Fidelina Shields MD - 09/21/2017 9:36 PM PDTAttending: I saw and examined Berlin Temple ([id number]) with KESHAWN Alexander on mornin g rounds [...] enough to re-trial PO. Fidelina Shields MD Neurology Physician Division of Trauma, Critical Care and Acute Care Surgery Office: [phone] Pager: [phone] Sherine Sarmiento AGACNP - 09/20/2017 7:41 AM [...] haldol given yesterday afternoon for agitation - SNOWBOARD INSTRUCTOR paged to re-eval in afternoon after concern for aspiration, made NPO by SNOWBOARD INSTRUCTOR - DARNELL SOLANO Current meds: I have [...] right pupil 3 and reactive Neck: in [place] collar Respiratory: unlabored on room air CV: [...] thick/pureed d iet. Made NPO yesterday by SNOWBOARD INSTRUCTOR after concern for aspiration. This is likely 2/2 waxing & wan ing delirium & AMS - SNOWBOARD INSTRUCTOR re-eval today recommend continue NPO d/t overt clinical signs of aspiration - Place Dobbhoff tube and restart feeds, slowly progress to goal - Stop TPN when tolerating tube feeds - SNOWBOARD INSTRUCTOR will follow closely, as his AMS improves [...] . - C-collar at all times, use ANTIQUE COLLECTOR when OOB - Follow-up with Neurosurgery on [...] & delirium [place] [phone] Associated attestation - Fidelina Shields MD - 09/20/2017 9:34 PM PDTAttending: I saw and examined Berlin Temple ([id number]) [facility] and agree with [...] dispo planning when able. Fidelina Shields MD Neurology Physician Division of Trauma, Critical Care and Acute Care Surgery Office: [phone] Pager: [phone] Mary Medrano MD,MPH - 09/19/2017 6:22 AM [...] downgraded from thin to thick liquids by SNOWBOARD INSTRUCTOR Current meds: I have independently reviewed current [...] intact, small Right fluctuant pseudomeningocele Neck: in [place] collar Respiratory: unlabored on room air CV: [...] DHT on09/19. - Cleared for diet by SNOWBOARD INSTRUCTOR, tolerating purees, 749 Calories yesterday - Restart Calorie count: if taking >700 again will be OK for full po diet, otherwise replac e DHT and restart TF - Stop TPN tomorrow regardless - Still considering repeat CT abdomen/pelvis #Dysphagia DHTreplaced overnight 09/07. TF held due to emesis and possible ileus, aspiration risk. DH T pulled overnight on 09/18 - SNOWBOARD INSTRUCTOR as able Resolved or chronic issues/Plan: #BIG 3 TBI #Right synthetic cranioplasty Neurosurgery consulted. Non-operative management. Last head CT 09/12 stable. Expected pseudo meningocele. Left-sided deficits consistent with baseline. - Stat head CT for any neurologic decline #C7 bilateral lamina fractures #C6-T2 spinous process fractures Neurosurgery consulted. Non-operative management. Upright cervical X-rays completed on 09/14 . - C-collar at all times, use ANTIQUE COLLECTOR when OOB - Follow-up with Neurosurgery on [...] M.D., M.P.H. Neurological Surgery Resident PGY-1 Pager: [phone] Associated attestation - Fidelina Shields MD - 09/19/2017 1:36 PM PDTAttending: I saw and examined Berlin Temple ([id number]) with the residents on morning rounds 09/19/17 and agree with the assessment and plan as outlined in this note and participated in the plan aashish of care. Improving po intake, will titrate TPN. Plan to DC TPN tomorrow and transition to PO vs PO + TF depending on calorie counts. Once of restraints will begin looking for placement. Fidelina Shields MD Neurology Physician Division of Trauma, Critical Care and Acute Care Surgery Office: [phone] Pager: [phone] Mary Medrano MD,MPH - 09/18/2017 6:17 AM [...] fluctuant pseudomeningocele,Dobhoff tubein p lace Neck: in [place] collar Respiratory: unlabored on room air CV: [...] holding TF - Cleared for diet by SNOWBOARD INSTRUCTOR, tolerating small quantities of purees - Will need repeat CT A/P within 1-2 days #Hypervolemia I&O approaching even. Appears to have been auto-diuresing. - Continue to monitor urine output - Monitor electrolytes, replete prn #Dysphagia DHTreplaced overnight 09/07. TF held due to emesis and possible ileus, aspiration risk. - SNOWBOARD INSTRUCTOR as able #C7 bilateral lamina fractures #C6-T2 spinous process fractures Neurosurgery consulted. Non-operative management. Upright cervical X-rays completed on 09/14 . - C-collar at all times, use ANTIQUE COLLECTOR when OOB - Follow-up with Neurosurgery on [...] by patient, but wound remains duke n/dry/intact. [place] removed 09/17. #Left hemothorax Chest tube placed [...] M.D., M.P.H. Neurological Surgery Resident PGY-1 Pager: [phone] Associated attestation - Fidelina Shields MD - 09/19/2017 3:58 PM PDTAttending: I saw and examined Berlin Temple ([id number]) with the residents on morning rounds 09/18/17 and agree with the assessment and plan as outlined in this note and participated in the plan aashish of care. Fidelina Shields MD Neurology Physician Division of Trauma, Critical Care and Acute Care Surgery Office: [phone] Pager: [phone] Mary Medrano MD,MPH - 09/17/2017 6:26 AM [...] fluctuant pseudomeningocele,Dobhoff tubein p lace Neck: in [place] collar Respiratory: unlabored on room air CV: [...] holding TF - Cleared for diet by SNOWBOARD INSTRUCTOR, tolerating small quantities of purees #Hypervolemia I&O approaching even. Appears to have been auto-diuresing. - Continue to monitor urine output - Monitor electrolytes, replete prn #Dysphagia DHTreplaced overnight 09/07. TF held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 [facility], CORE [address] [facility] | | | [place] [address] | + + + + + | Narrative | + + | Reference range change effective 12/11/16. | + + VASC LAB VENOUS DUPLEX LOWER EXTREMITY BILAT COMP (11/19/2017 11:05 AM) + + + | Specimen | Performing Laboratory | + + + | | [facility] US | + + + [...] Note | + + | Service Account, Flightfox Res In Interface - 11/19/2017 11:26 AM [...] Laboratory | + + + | | [facility] [address] [place] [address] | | | [place] [address] | + + + 12 LEAD ECG [...] Laboratory | + + + | | [facility] [address] [place] [address] | | | [place] [address] | + + + CALCIUM, IONIZED, WHOLE [...] | + + + | Blood | [facility], CORE [address] [place] [address] | | | [place] [address] | + + + C-REACTIVE PROTEIN (11/18/2017 7:45 AM) + +-------+ + | Component | Value | Ref Range | + +-------+ + | C-REACTIVE PROTEIN | <2.9 | <10.0 mg/L | + +-------+ + + + + | Specimen | Performing Laboratory | + + + | Blood | [facility], CORE [address] [facility] | | | [place] [address] | + + + + + | [...] | + + + | Blood | [facility] [address] [place], [place] | | | [address] | + + + TRIGLYCERIDES, PLASMA (11/18/2017 7:45 AM) + +---------+ + | Component | Value | Ref Range | + +---------+ + | TRIGLYCERIDES | 162 (H) | <150 mg/dL | + +---------+ + + + + | Specimen | Performing Laboratory | + + + | Blood | [facility], CORE [address] | | | [place] [address] | + + + + + [...] | + + + | Blood | [facility], CORE [address] [facility] | | | [place] [address] | + + + RENAL FUNCTION SET [...] | >60 | >60 mL/min | | ICELANDIC | | | + + + + | EGFR NON | >60 | >60 mL/min | | -ICELANDIC | | | + + + + [...] | + + + | Blood | [facility], CORE [address] [address] | | | [place] [address] | + + + + + | [...] | + + + | Blood | [facility], CORE [address] [place] [address] [place] | | | [place] [address] | + + + + + | [...] | + + + | | [facility] [address] [place] [address] | | | [place] [address] | + + + 12 LEAD ECG [...] Laboratory | + + + | | [facility] [address] [place] [address] | | | [place] [address] | + + + CBC (HEMOGRAM) ONLY [...] | + + + | Blood | [facility], CORE [address] [facility] | | | [place] [address] | + + + + + | [...] | | ------ CBC (HEMOGRAM) | | ONLY[[id number]] Abnormal Final | | result Please view [...] Laboratory | + + + | | [facility] [address] [place] [address] | | | [place] [address] | + + + RENAL FUNCTION SET [...] | >60 | >60 mL/min | | ICELANDIC | | | + + + + | EGFR NON | >60 | >60 mL/min | | -ICELANDIC | | | + + + + [...] | + + + | Blood | [facility], CORE [address] [facility] | | | [place] [address] | + + + + + | [...] | + + + | Blood | [facility], CORE [address] | | | [place] [address] | + + + + + | [...] Laboratory | + + + | | [facility] [address] [facility] | | | [place] [address] | + + + MAGNESIUM, PLASMA (11/13/2017 5:47 AM) + +-------+ + | Component | Value | Ref Range | + +-------+ + | MAGNESIUM,PLASMA | 2.1 | 1.6 - 2.6 mg/dL | + +-------+ + + + + | Specimen | Performing Laboratory | + + + | Blood | [facility], CORE [address] [place] | | | [place] [address] | + + + + + | [...] | >60 | >60 mL/min | | ICELANDIC | | | + + + + | EGFR NON | >60 | >60 mL/min | | -ICELANDIC | | | + + + + [...] | + + + | Blood | [facility], CORE [address] [facility] [address] | | | [place] [address] | + + + + + | [...] | + + + | Urine | [facility] [address] [place], [place] | | | [address] | + + + VASC LAB VENOUS [...] Note | + + | Service Account, Flightfox Res In Interface - 11/12/2017 1:46 PM [...] Laboratory | + + + | | [facility] [address] [place] [address] | | | [place] [address] | + + + CT CHEST, ABDOMEN AND PELVIS W IV CONTRAST (11/11/2017 6:57 PM) + + + | Specimen | Performing Laboratory | + + + | | [facility] RADIOLOGY VOICE RECOGNITION 2 | + [...] | + + + | Blood | [facility], CORE [address] [facility] | | | [place] [address] | + + + PROTEIN ELECTROPHORESIS, SERUM, [...] | | | By: Abel SILVER- ORDoroteo Lorraine | | + + + + + + + | Specimen | Performing Laboratory | + + + | Blood | [facility] [address] [place], [place] | | | [address] | + + + 12 LEAD ECG [...] | + + + | | [facility] [address] [facility] | | | [place] [address] | + + + C-REACTIVE PROTEIN (11/11/2017 9:06 AM) + +-------+ + | Component | Value | Ref Range | + +-------+ + | C-REACTIVE PROTEIN | <2.9 | <10.0 mg/L | + +-------+ + + + + | Specimen | Performing Laboratory | + + + | Blood | [facility], [facility] [address] [facility] | | | [place] [address] | + + + + + | [...] | + + + | Blood | [facility] [place] [address] [place], [place] | | | [address] | + + + TRIGLYCERIDES, PLASMA (11/11/2017 9:06 AM) + +-------+ + | Component | Value | Ref Range | + +-------+ + | TRIGLYCERIDES | 117 | <150 mg/dL | + +-------+ + + + + | Specimen | Performing Laboratory | + + + | Blood | [facility], CORE [address] [facility] [place] | | | [place] [address] | + + + + + | [...] | + + + | Blood | [facility], [facility] [address] [place] [address] | | | [place] [address] | + + + LIVER SET (AST,ALT,BILI [...] | + + + | Blood | [facility], CORE [address] [place] [address] | | | [place] [address] | + + + RENAL FUNCTION SET [...] | >60 | >60 mL/min | | ICELANDIC | | | + + + + | EGFR NON | >60 | >60 mL/min | | -ICELANDIC | | | + + + + [...] | + + + | Blood | [facility], CORE [address] [facility] | | | [facility] [place] [address] | + + + + + | [...] | + + + | Blood | [facility], CORE [address] [facility] | | | [place] [address] | + + + + + [...] | + + + | Blood | [facility], CORE [address] [place] [address] | | | [place] [address] | + + + + + | [...] | >60 | >60 mL/min | | ICELANDIC | | | + + + + | EGFR NON | >60 | >60 mL/min | | -ICELANDIC | | | + + + + [...] | + + + | Blood | [facility] [address] | | | [place] [address] | + + + + + | [...] Laboratory | + + + | | [facility] [address] [place] [address] | | | [place] [address] | + + + MAGNESIUM, PLASMA (11/10/2017 10:19 AM) + +-------+ + | Component | Value | Ref Range | + +-------+ + | MAGNESIUM,PLASMA | 2.0 | 1.6 - 2.6 mg/dL | + +-------+ + + + + | Specimen | Performing Laboratory | + + + | Blood | [facility], CORE [address] [facility] [place] | | | [place] [address] | + + + + + | [...] | >60 | >60 mL/min | | ICELANDIC | | | + + + + | EGFR NON | >60 | >60 mL/min | | -ICELANDIC | | | + + + + [...] | + + + | Blood | [facility], CORE [address] [facility] | | | [place] [address] | + + + + + | [...] | + + + | Blood | [facility], CORE [address] [facility] | | | [place] [address] | + + + + + | [...] | >60 | >60 mL/min | | ICELANDIC | | | + + + + | EGFR NON | >60 | >60 mL/min | | -ICELANDIC | | | + + + + [...] | + + + | Blood | [facility], [facility] [address] | | | [place] [address] | + + + + + | [...] Laboratory | + + + | | [facility] RADIOLOGY VOICE RECOGNITION 2 | + [...] report as now presented. Final signature: Shiva Snyedr | Prabhakar Batista MD 11/08/2017 2:30 PM [...] | + + + | Blood | [facility], CORE [address] [facility] | | | [place] [address] | + + + + + | [...] | >60 | >60 mL/min | | ICELANDIC | | | + + + + | EGFR NON | >60 | >60 mL/min | | -ICELANDIC | | | + + + + [...] | + + + | Blood | [facility], [facility] [address] [facility] | | | [place] [address] | + + + + + | [...] Laboratory | + + + | | [facility] [address] [place] [address] | | | [place] [address] | + + + CT HEAD WO CONTRAST (11/07/2017 3:43 PM) + + + | Specimen | Performing Laboratory | + + + | | [facility] RAD[facility] VOICE RECOGNITION 2 | + [...] + | | [facility] [address] [place] [address] | | | [place] [address] | + + + RENAL FUNCTION SET [...] | >60 | >60 mL/min | | ICELANDIC | | | + + + + | EGFR NON | >60 | >60 mL/min | | -ICELANDIC | | | + + + + [...] | + + + | Blood | [facility], CORE [address] [place] [address] | | | [place] [address] | + + + + + | [...] | + + + | Blood | [facility], CORE [address] | | | [place] [address] | + + + + + | [...] + + | PRODUCT UNIT # | [id number] | | + + + + | UNIT ABO | O | | + + + + | UNIT RH | POS | | + + + + | STATUS OF UNIT | Returned to Blood Bank | | + + + + | EXPIRATION DATE | [id number] | | + + + + | BLOOD TYPE BARCODE | 5100 | | + + + + | BLOOD PRODUCT CODE | [id number] | | + + + + + + + | Specimen | Performing Laboratory | + + + | | [facility], TRANSF[facility]ION MEDICINE [address] [facility] | | | [place] [address] | + + + PRODUCT - RED CELLS LEUKOREDUCED (11/06/2017 8:03 AM) + + + + | Component | Value | Ref Range | + + + + | PRODUCT DESCRIPTION | -1 RED BLOOD CELL ADENINE-SALINE ADDED | | | | LEUKOCYTE | | + + + + | PRODUCT UNIT # | [id number] | | + + + + | UNIT ABO | O | | + + + + | UNIT RH | POS | | + + + + | STATUS OF UNIT | Returned to Blood Bank | | + + + + | EXPIRATION DATE | [id number] | | + + + + | BLOOD TYPE BARCODE | 5100 | | + + + + | BLOOD PRODUCT CODE | [id number] | | + + + + + + + | Specimen | Performing Laboratory | + + + | | [facility], TRANSF[facility]ION MEDICINE [address] [facility] | | | [place] [address] | + + + CBC (HEMOGRAM) ONLY [...] | + + + | Blood | [facility], CORE [address] [facility] | | | [place] [address] | + + + + + | [...] | | ------ CBC (HEMOGRAM) | | ONLY[[id number]] Abnormal Final | | result Please view [...] | + + + | Blood | [facility], CORE [address] [facility] | | | [place] [address] | + + + + + | [...] | >60 | >60 mL/min | | ICELANDIC | | | + + + + | EGFR NON | >60 | >60 mL/min | | -ICELANDIC | | | + + + + [...] | + + + | Blood | [facility], CORE [address] | | | [place] [address] | + + + + + | [...] | | Surgeon: Magdiel Stock MD Clinical Courier(s): Rg Aiken MD | | Preoperative Diagnoses: [...] the incision down to the cranium. Once [place] | | skull was reached circumferentially around the prior incision, a #1 [place] was used | | to subperiosteally dissect [...] for this encounter.Sonal Nunez, | | СЕРГЕЙ [id number] [place], [place] | | [phone] Orina, MDJB/TAHIRLDD: 11/05/2017 20:38:01DT: 11/06/2017 | | 00:27:33Etienne #: [id number] | |HATTIE/DUC | | | | | | /[id number] | + + CT HEAD WO CONTRAST [...] Note | + + | Service Account, [employer] Res In Interface - 11/05/2017 8:20 PM [...] | nursing staff. Surgeon: Magdiel Stock MD Clinical Courier: Rg Aiken MD | | Pre-op Diagnosis: [...] | MD Attila PGY-4 Neurological Surgery Pager [phone] | + + CAPILLARY BLOOD GLUCOSE (NO [...] [address] | | | [place] [address] | + + + CAPILLARY BLOOD GLUCOSE [...] [address] | | | [place] [address] | + + + VASC LAB VENOUS DUPLEX LOWER EXTREMITY BILAT COMP (11/05/2017 10:36 AM) + + + | Specimen | Performing Laboratory | + + + | | [facility] | + + [...] Note | + + | Service Account, Flight[employer] Res In Interface - 11/05/2017 11:31 AM [...] | + + + | Blood | [facility], CORE [address] | | | [place] [address] | + + + + + | [...] | + + + | Blood | [facility], CORE [address] [facility] | | | [place] [address] | + + + + + | [...] | >60 | >60 mL/min | | ICELANDIC | | | + + + + | EGFR NON | >60 | >60 mL/min | | -ICELANDIC | | | + + + + [...] | + + + | Blood | [facility], CORE [address] [facility] | | | [place] [address] | + + + + + | [...] | + + + | Blood | [facility], CORE [address] | | | [place] [address] | + + + + + | [...] | | ------ CBC (HEMOGRAM) | | ONLY[[id number]] Abnormal Final | | result Please view [...] + + | PRODUCT UNIT # | [id number] | | + + + + | UNIT ABO | O | | + + + + | UNIT RH | POS | | + + + + | STATUS OF UNIT | Returned to Blood Bank | | + + + + | EXPIRATION DATE | [id number] | | + + + + | BLOOD TYPE BARCODE | 5100 | | + + + + | BLOOD PRODUCT CODE | [id number] | | + + + + + + + | Specimen | Performing Laboratory | + + + | | [facility], TRANSFUSION MEDICINE [address] [facility] | | | [place] [address] | + + + PRODUCT - RED CELLS LEUKOREDUCED (11/04/2017 8:19 PM) + + + + | Component | Value | Ref Range | + + + + | PRODUCT DESCRIPTION | -1 RED BLOOD CELL ADENINE-SALINE ADDED | | | | LEUKOCYTE | | + + + + | PRODUCT UNIT # | [id number] | | + + + + | UNIT ABO | O | | + + + + | UNIT RH | POS | | + + + + | STATUS OF UNIT | Returned to Blood Bank | | + + + + | EXPIRATION DATE | [id number] | | + + + + | BLOOD TYPE BARCODE | 5100 | | + + + + | BLOOD PRODUCT CODE | [id number] | | + + + + + + + | Specimen | Performing Laboratory | + + + | | [facility], TRANSFUSION MEDICINE [address] | | | [place] [address] | + + + CBC (HEMOGRAM) ONLY [...] | + + + | Blood | [facility], CORE [address] [facility] | | | [place] [address] | + + + + + | [...] | + + + | Blood | [facility], TRANSFUSION MEDICINE [address] [place] [address] | | | [place] [address] | + + + ABO & RH [...] | + + + | Blood | [facility], TRANSFUSION MEDICINE [address] [facility] | | | [place] [address] | + + + TYPE AND SCREEN [...] | ------ ABO & RH | | TYPE[[id number]] F | | inal result ANTIBODY | | SCREEN[[id number]] Fin | | al result Please view [...] | + + + | Blood | [facility], CORE [address] [facility] | | | [place] [address] | + + + + + | [...] | | ------ CBC (HEMOGRAM) | | ONLY[[id number]] Abnormal Final | | result Please view [...] Laboratory | + + + | | [facility] [address] [place] [address] | | | [place] [address] | + + + CALCIUM, IONIZED, WHOLE [...] | + + + | Blood | [facility], CORE [address] [facility] | | | [place] [address] | + + + C-REACTIVE PROTEIN (11/04/2017 5:59 AM) + +-------+ + | Component | Value | Ref Range | + +-------+ + | C-REACTIVE PROTEIN | <2.9 | <10.0 mg/L | + +-------+ + + + + | Specimen | Performing Laboratory | + + + | Blood | [facility], CORE [address] [facility] | | | [place] [address] | + + + + + | [...] | + + + | Blood | [facility] [place] [address] [place], [place] | | | [address] | + + + TRIGLYCERIDES, PLASMA (11/04/2017 5:59 AM) + +-------+ + | Component | Value | Ref Range | + +-------+ + | TRIGLYCERIDES | 111 | <150 mg/dL | + +-------+ + + + + | Specimen | Performing Laboratory | + + + | Blood | [facility], CORE [address] [facility] | | | [place] [address] | + + + + + | [...] | + + + | Blood | [facility], CORE [address] [facility] | | | [place] [address] | + + + RENAL FUNCTION SET [...] | >60 | >60 mL/min | | ICELANDIC | | | + + + + | EGFR NON | >60 | >60 mL/min | | -ICELANDIC | | | + + + + [...] | + + + | Blood | [facility], CORE [address] | | | [place] [address] | + + + + + | [...] | + + + | Blood | [facility], CORE [address] [facility] | | | [place] [address] | + + + + + | [...] | + + + | Blood | [facility], CORE [address] [facility] | | | [facility] [address] | + + + + + | [...] | >60 | >60 mL/min | | ICELANDIC | | | + + + + | EGFR NON | >60 | >60 mL/min | | -ICELANDIC | | | + + + + [...] Blood | [facility], CORE [address] [facility] | | | [place] [address] | + + + + + | [...] | + + + | Blood | [facility], CORE [address] [facility] | | | [place] [address] | + + + + + | [...] | >60 | >60 mL/min | | ICELANDIC | | | + + + + | EGFR NON | >60 | >60 mL/min | | -ICELANDIC | | | + + + + [...] | + + + | Blood | [facility], CORE [address] [facility] | | | [place] [address] | + + + + + | [...] Laboratory | + + + | | [facility] [address] [place] [address] | | | [facility] [place] [address] | + + + MAGNESIUM, PLASMA (11/01/2017 4:40 AM) + +-------+ + | Component | Value | Ref Range | + +-------+ + | MAGNESIUM,PLASMA | 2.0 | 1.6 - 2.6 mg/dL | + +-------+ + + + + | Specimen | Performing Laboratory | + + + | Blood | [facility], CORE [address] [facility] | | | [place] [address] | + + + + + | [...] | >60 | >60 mL/min | | ICELANDIC | | | + + + + | EGFR NON | >60 | >60 mL/min | | -ICELANDIC | | | + + + + [...] | + + + | Blood | [facility], CORE [address] [facility] | | | [place] [address] | + + + + + | [...] Laboratory | + + + | | [facility] VOICE RECOGNITION 2 | + [...] Laboratory | + + + | | [facility] [address] [place] [address] | | | [place] [address] | + + + RENAL FUNCTION SET [...] | >60 | >60 mL/min | | ICELANDIC | | | + + + + | EGFR NON | >60 | >60 mL/min | | -ICELANDIC | | | + + + + [...] | + + + | Blood | [facility], [facility] [address] [facility] | | | [place] [address] | + + + + + | [...] | + + + | Blood | [facility], CORE [address] [facility] | | | [place] [address] | + + + + + | [...] | + + + | | [facility] POINT OF CARE TESTS [address] | | | [place] [address] | + + + MAGNESIUM, PLASMA (10/30/2017 5:29 AM) + +-------+ + | Component | Value | Ref Range | + +-------+ + | MAGNESIUM,PLASMA | 1.8 | 1.6 - 2.6 mg/dL | + +-------+ + + + + | Specimen | Performing Laboratory | + + + | Blood | [facility], CORE [address] [facility] | | | [place] [address] | + + + + + | [...] | >60 | >60 mL/min | | ICELANDIC | | | + + + + | EGFR NON | >60 | >60 mL/min | | -ICELANDIC | | | + + + + [...] | + + + | Blood | [facility], CORE [address] [place] [address] | | | [facility] [place] [address] | + + + + + | [...] Laboratory | + + + | | [facility] | + + + [...] Note | + + | Service Account, Tagged In Interface - 10/29/2017 12:13 PM PDT [...] [address] | | | [place] [address] | + + + MAGNESIUM, PLASMA (10/29/2017 6:19 AM) + +-------+ + | Component | Value | Ref Range | + +-------+ + | MAGNESIUM,PLASMA | 1.9 | 1.6 - 2.6 mg/dL | + +-------+ + + + + | Specimen | Performing Laboratory | + + + | Blood | [facility], CORE [address] [facility] | | | [place] [address] | + + + + + | [...] | >60 | >60 mL/min | | ICELANDIC | | | + + + + | EGFR NON | >60 | >60 mL/min | | -ICELANDIC | | | + + + + [...] | + + + | Blood | [facility], CORE [address] [facility] | | | [place] [address] | + + + + + | [...] [address] | | | [place] [address] | + + + 12 LEAD ECG [...] Laboratory | + + + | | [facility] [address] [place] [address] | | | [place] [address] | + + + CAPILLARY BLOOD GLUCOSE (NO CHG), POC (10/28/2017 12:00 PM) + +---------+ + | Component | Value | Ref Range | + +---------+ + | BLOOD GLUCOSE, POC | 141 (H) | 70 - 99 mg/dL | + +---------+ + + + + | Specimen | Performing Laboratory | + + + | | [facility], POINT OF CARE TESTS [address] | | | [place] [address] | + + + CAPILLARY BLOOD GLUCOSE [...] TESTS [address] | | | [place] [address] | + + + C-REACTIVE PROTEIN (10/28/2017 5:29 AM) + + + + | Component | Value | Ref Range | + + + + | C-REACTIVE PROTEIN | 17.9 (H) | <10.0 mg/L | + + + + + + + | Specimen | Performing Laboratory | + + + | Blood | [facility], CORE [address] [facility] [address] | | | [place] [address] | + + + + + | [...] | + + + | Blood | [facility] [address] [place], [place] | | | [address] | + + + TRIGLYCERIDES, PLASMA (10/28/2017 5:29 AM) + +-------+ + | Component | Value | Ref Range | + +-------+ + | TRIGLYCERIDES | 117 | <150 mg/dL | + +-------+ + + + + | Specimen | Performing Laboratory | + + + | Blood | [facility], CORE [address] [facility] | | | [place] [address] | + + + + + | [...] | + + + | Blood | [facility], CORE [address] [facility] | | | [place] [address] | + + + LIVER SET (AST,ALT,BILI [...] | + + + | Blood | [facility], CORE [address] [facility] | | | [place] [address] | + + + RENAL FUNCTION SET [...] | >60 | >60 mL/min | | ICELANDIC | | | + + + + | EGFR NON | >60 | >60 mL/min | | -ICELANDIC | | | + + + + [...] | + + + | Blood | [facility], CORE [address] | | | [place] [address] | + + + + + | [...] | + + + | Blood | [facility], CORE [address] [facility] [address] | | | [place] [address] | + + + + + | [...] [address] | | | [place] [address] | + + + CAPILLARY BLOOD GLUCOSE (NO CHG), POC (10/27/2017 6:48 PM) + +---------+ + | Component | Value | Ref Range | + +---------+ + | BLOOD GLUCOSE, POC | 128 (H) | 70 - 99 mg/dL | + +---------+ + + + + | Specimen | Performing Laboratory | + + + | | [facility], POINT OF CARE TESTS [address] | | | [place] [address] | + + + CT ABDOMEN AND PELVIS WO IV CONTRAST (10/27/2017 5:38 PM) + + + | Specimen | Performing Laboratory | + + + | | [facility] VOICE RECOGNITION 2 | + [...] Note | + + | Service Account, Flightfox Res In Interface - 10/28/2017 9:21 AM [...] Laboratory | + + + | | [facility] VOICE RECOGNITION 2 | + + + + + | Narrative | + + | EXAM: OR CHEST PICC [...] Brachial | | vein. Catheter lot number: [id number] with a length of 55 cm was [...] [address] | | | [place] [address] | + + + 12 LEAD ECG [...] | | [facility] [address] [facility] | | | [place] [address] | + + + CAPILLARY BLOOD GLUCOSE (NO CHG), POC (10/27/2017 6:10 AM) + +-------+ + | Component | Value | Ref Range | + +-------+ + | BLOOD GLUCOSE, POC | 82 | 70 - 99 mg/dL | + +-------+ + + + + | Specimen | Performing Laboratory | + + + | | [facility] POINT OF CARE TESTS [address] [facility] | | | [place] [address] | + + + MAGNESIUM, PLASMA (10/27/2017 4:30 AM) + +-------+ + | Component | Value | Ref Range | + +-------+ + | MAGNESIUM,PLASMA | 1.9 | 1.6 - 2.6 mg/dL | + +-------+ + + + + | Specimen | Performing Laboratory | + + + | Blood | [facility], CORE [address] | | | [place] [address] | + + + + + | [...] | >60 | >60 mL/min | | ICELANDIC | | | + + + + | EGFR NON | >60 | >60 mL/min | | -ICELANDIC | | | + + + + [...] | + + + | Blood | [facility], CORE [address] [facility] | | | [place] [address] | + + + + + | [...] + + | | [facility], POINT OF CARE TESTS [address] | | | [place] [address] | + + + CAPILLARY BLOOD GLUCOSE [...] [address] | | | [place] [address] | + + + CAPILLARY BLOOD GLUCOSE (NO CHG), POC (10/26/2017 5:57 AM) + +---------+ + | Component | Value | Ref Range | + +---------+ + | BLOOD GLUCOSE, POC | 102 (H) | 70 - 99 mg/dL | + +---------+ + + + + | Specimen | Performing Laboratory | + + + | | [facility], POINT OF CARE TESTS [address] | | | [place] [address] | + + + MAGNESIUM, PLASMA (10/26/2017 5:13 AM) + +-------+ + | Component | Value | Ref Range | + +-------+ + | MAGNESIUM,PLASMA | 1.6 | 1.6 - 2.6 mg/dL | + +-------+ + + + + | Specimen | Performing Laboratory | + + + | Blood | [facility], CORE [address] [facility] | | | [place] [address] | + + + + + | [...] | >60 | >60 mL/min | | ICELANDIC | | | + + + + | EGFR NON | >60 | >60 mL/min | | -ICELANDIC | | | + + + + [...] | + + + | Blood | [facility] [address] | | | [place] [address] | + + + + + | [...] | + + + | | [facility], POINT OF CARE TESTS [address] | | | [place] [address] | + + + BASIC METABOLIC SET [...] | >60 | >60 mL/min | | ICELANDIC | | | + + + + | EGFR NON | >60 | >60 mL/min | | -ICELANDIC | | | + + + + [...] | + + + | Blood | [facility], CORE [address] [facility] | | | [place] [address] | + + + + + | [...] [address] | | | [place] [address] | + + + 12 LEAD ECG [...] | + + + | | [facility] [address] [place] [address] | | | [place] [address] | + + + CAPILLARY BLOOD GLUCOSE (NO CHG), POC (10/25/2017 3:35 AM) + +-------+ + | Component | Value | Ref Range | + +-------+ + | BLOOD GLUCOSE, POC | 87 | 70 - 99 mg/dL | + +-------+ + + + + | Specimen | Performing Laboratory | + + + | | [facility], POINT OF CARE TESTS [address] | | | [place] [address] | + + + 12 LEAD ECG [...] | + + + | | [facility] [address] [facility] | | | [place] [address] | + + + CALCIUM, IONIZED, WHOLE [...] | + + + | Blood | [facility], CORE [address] | | | [place], [place] [address] | + + + PREALBUMIN (10/24/2017 4:50 PM) + + + + | Component | Value | Ref Range | + + + + | PREALBUMIN | 14.7 (L) | 17.0 - 42.0 mg/dL | + + + + + + + | Specimen | Performing Laboratory | + + + | Blood | [facility] [place] [address] [place], [place] | | | [address] | + + + C-REACTIVE PROTEIN (10/24/2017 4:45 PM) + + + + | Component | Value | Ref Range | + + + + | C-REACTIVE PROTEIN | 16.0 (H) | <10.0 mg/L | + + + + + + + | Specimen | Performing Laboratory | + + + | Blood | [facility], CORE [address] [facility] | | | [place] [address] | + + + + + | [...] | + + + | Blood | [facility], CORE [address] [facility] | | | [place] [address] | + + + TRIGLYCERIDES, PLASMA (10/24/2017 4:45 PM) + +-------+ + | Component | Value | Ref Range | + +-------+ + | TRIGLYCERIDES | 93 | <150 mg/dL | + +-------+ + + + + | Specimen | Performing Laboratory | + + + | Blood | [facility], CORE [address] | | | [place], [place] [address] | + + + + + | [...] | + + + | Blood | [facility], CORE [address] [facility] | | | [place] [address] | + + + ALKALINE PHOSPHATASE, PLASMA (10/24/2017 4:45 PM) + +---------+ + | Component | Value | Ref Range | + +---------+ + | ALK PHOS | 200 (H) | 56 - 119 U/L | + +---------+ + + + + | Specimen | Performing Laboratory | + + + | Blood | [facility], CORE [address] [place] [address] | | | [place] [address] | + + + BILIRUBIN DIRECT (10/24/2017 [...] | + + + | Blood | [facility], CORE [address] [facility] | | | [place] [address] | + + + BILIRUBIN TOTAL (10/24/2017 [...] | + + + | Blood | [facility], CORE [address] [place] [address] | | | [place], [place] [address] | + + + PHOSPHORUS, PLASMA (10/24/2017 4:45 PM) + +-------+ + | Component | Value | Ref Range | + +-------+ + | PHOSPHORUS, PLASMA | 3.2 | 2.4 - 4.7 mg/dL | | (LAB) | | | + +-------+ + + + + | Specimen | Performing Laboratory | + + + | Blood | [facility], CORE [address] [place] [address] | | | [place] [address] | + + + ALBUMIN, PLASMA (10/24/2017 4:45 PM) + +---------+ + | Component | Value | Ref Range | + +---------+ + | ALBUMIN, PLASMA | 2.6 (L) | 3.5 - 4.7 g/dL | | (LAB) | | | + +---------+ + + + + | Specimen | Performing Laboratory | + + + | Blood | [facility], CORE [address] [place] [address] | | | [place] [address] | + + + MAGNESIUM, PLASMA (10/24/2017 4:45 PM) + +-------+ + | Component | Value | Ref Range | + +-------+ + | MAGNESIUM,PLASMA | 1.7 | 1.6 - 2.6 mg/dL | + +-------+ + + + + | Specimen | Performing Laboratory | + + + | Blood | [facility], CORE [address] [facility] | | | [place] [address] | + + + + + | [...] | >60 | >60 mL/min | | ICELANDIC | | | + + + + | EGFR NON | >60 | >60 mL/min | | -ICELANDIC | | | + + + + [...] | + + + | Blood | [facility], CORE [address] [place] [address] RD | | | [place] [address] | + + + + + | [...] Procedure Note | | Indications:TPN Procedure [facility]: [facility] Room: 4 Providers: Attending name: | | [...] Arm area Basilic vein. Catheter lot number: [id number] with a length of 55 cm | [...] Laboratory | + + + | | [facility] VOICE RECOGNITION 2 | + + + + + | Narrative | + + | EXAM: OR CHEST 1 [...] Preliminary: Julian Perkins MD Dictation initiated: Julian Prekins MD | | 10/24/2017 3:40 PM | [...] + + + | | [facility] TESTS [address] | | | [place] [address] | + + + PROCEDURE NOTE (10/24/2017 [...] Surgical Critical Care, PGY7 | | Pager: [phone] | + + CAPILLARY BLOOD GLUCOSE (NO CHG), POC (10/24/2017 10:31 AM) + +-------+ + | Component | Value | Ref Range | + +-------+ + | BLOOD GLUCOSE, POC | 85 | 70 - 99 mg/dL | + +-------+ + + + + | Specimen | Performing Laboratory | + + + | | [facility], POINT OF CARE TESTS [address] | | | [place] [address] | + + + CAPILLARY BLOOD GLUCOSE (NO CHG), POC (10/24/2017 8:50 AM) + +-------+ + | Component | Value | Ref Range | + +-------+ + | BLOOD GLUCOSE, POC | 98 | 70 - 99 mg/dL | + +-------+ + + + + | Specimen | Performing Laboratory | + + + | | [facility] PO[facility] CARE TESTS [address] | | | [place] [address] | + + + RENAL FUNCTION SET [...] | >60 | >60 mL/min | | ICELANDIC | | | + + + + | EGFR NON | >60 | >60 mL/min | | -ICELANDIC | | | + + + + [...] | + + + | Blood | [facility], CORE [address] | | | [place] [address] | + + + + + | [...] | + + + | Blood | [facility], CORE [address] [facility] | | | [place] [address] | + + + + + | [...] + + + | | [facility], POINT OF CARE TESTS [address] | | | [place] [address] | + + + CBC AND AUTO [...] | + + + | Blood | [facility], CORE [address] [facility] | | | [place] [address] | + + + + + | [...] | >60 | >60 mL/min | | ICELANDIC | | | + + + + | EGFR NON | >60 | >60 mL/min | | -ICELANDIC | | | + + + + [...] | + + + | Blood | [facility], CORE [address] [facility] | | | [place] [address] | + + + + + | [...] | ------ CBC AND AUTO | | DIFF[[id number]] Abnormal Final | | result Please view [...] | | [facility] [address] [facility] | | | [place] [address] | + + + IR GASTROSTOMY TUBE EXCHANGE (10/22/2017 2:42 PM) + + + | Specimen | Performing Laboratory | + + + | | [facility] VOICE RECOGNITION | + + + + + | Narrative | + + | Procedure: Gastrostomy tube exchange Primary attending motorcycle mechanic apprentice: Shade | | Bryn Goodwin Preoperative diagnosis: Malfunctioning Gastrostomy tube | | Postoperative diagnosis: Same Operations: Operation 1. Removal of existing | | Gastrostomy tube over a guide wire Operation 2. Placement of 24 Bermudian GABRIEL | | gastrostomy over guide wire [...] | | glide wire the new 24 Bermudian gastrostomy tube was inserted. The position of [...] Procedure: | | Gastrostomy tube exchangePrimary attending motorcycle mechanic apprentice: Shade Goodwin | | BrynPreoperative diagnosis: Malfunctioning Gastrostomy tubePostoperative diagnosis: | | SameOperations:Operation 1. Removal of existing Gastrostomy tube over a guide | | wireOperation 2. Placement of 24 Bermudian GABRIEL gastrostomy over guide wireNo sedation was [...] glide wire the | | new 24 Bermudian gastrostomy tube was inserted. The position of [...] stiff g lide wire the new 24 Bermudian | |gastrostomy tube was inserted. The position [...] | + + + | | [facility] [address] [place] [address] | | | [place] [address] | + + + CT ABDOMEN AND [...] as now | | presented. Final signature: uJice Georges MD 10/22/2017 8:05 AM | | [...] | + + + | Blood | [facility], CORE [address] [facility] | | | [place] [address] | + + + + + | [...] | >60 | >60 mL/min | | ICELANDIC | | | + + + + | EGFR NON | >60 | >60 mL/min | | -ICELANDIC | | | + + + + [...] | + + + | Blood | [facility], CORE [address] [place] [address] | | | [place] [address] | + + + + + | [...] | | ------ CBC (HEMOGRAM) | | ONLY[[id number]] Abnormal Final | | result Please view [...] + | | [facility] [address] [place] [address] | | | [place] [address] | + + + RENAL FUNCTION SET [...] | >60 | >60 mL/min | | ICELANDIC | | | + + + + | EGFR NON | >60 | >60 mL/min | | -ICELANDIC | | | + + + + [...] | + + + | Blood | [facility], CORE [address] [place] [address] | | | [place] [address] | + + + + + | [...] | + + + | Blood | [facility], CORE [address] [facility] | | | [place] [address] | + + + + + | [...] Laboratory | + + + | | [facility] [address] [place] [address] | | | [place] [address] | + + + MAGNESIUM, PLASMA (10/18/2017 9:01 AM) + +-------+ + | Component | Value | Ref Range | + +-------+ + | MAGNESIUM,PLASMA | 1.9 | 1.6 - 2.6 mg/dL | + +-------+ + + + + | Specimen | Performing Laboratory | + + + | Blood | [facility], CORE [address] [place] [address] | | | [place] [address] | + + + + + | [...] | >60 | >60 mL/min | | ICELANDIC | | | + + + + | EGFR NON | >60 | >60 mL/min | | -ICELANDIC | | | + + + + [...] | + + + | Blood | [facility], CORE [address] [facility] | | | [place] [address] | + + + + + | [...] Laboratory | + + + | | [facility] [address] [place] [address] | | | [place] [address] | + + + RENAL FUNCTION SET [...] | >60 | >60 mL/min | | ICELANDIC | | | + + + + | EGFR NON | >60 | >60 mL/min | | -ICELANDIC | | | + + + + [...] | + + + | Blood | [facility], CORE [address] [place] [address] | | | [place] [address] | + + + + + | [...] | + + + | Blood | [facility], CORE [address] [facility] | | | [place] [address] | + + + + + | [...] Laboratory | + + + | | [facility] [address] [place] [address] | | | [place] [address] | + + + BASIC METABOLIC SET [...] | >60 | >60 mL/min | | ICELANDIC | | | + + + + | EGFR NON | >60 | >60 mL/min | | -ICELANDIC | | | + + + + [...] | + + + | Blood | [facility], CORE [address] | | | [place] [address] | + + + + + | [...] | + + + | Blood | [facility], CORE [address] | | | [place] [address] | + + + + + | [...] | | ------ CBC (HEMOGRAM) | | ONLY[[id number]] Abnormal Final | | result Please view [...] Note | + + | Service Account, Tagged In Interface - 10/15/2017 3:58 PM PDT [...] | + + + | | [facility] [address] [place] [address] | | | [place] [address] | + + + CAPILLARY BLOOD GLUCOSE [...] [address] | | | [place] [address] | + + + CBC (HEMOGRAM) ONLY [...] | + + + | Blood | [facility], CORE [address] [place] [address] | | | [place] [address] | + + + + + | [...] | | ------ CBC (HEMOGRAM) | | ONLY[[id number]] Abnormal Final | | result Please view [...] [address] | | | [place] [address] | + + + 12 LEAD ECG [...] | + + + | | [facility] [address] [place] [address] | | | [place] [address] | + + + CBC (HEMOGRAM) ONLY [...] | + + + | Blood | [facility], CORE [address] | | | [place] [address] | + + + + + | [...] | >60 | >60 mL/min | | ICELANDIC | | | + + + + | EGFR NON | >60 | >60 mL/min | | -ICELANDIC | | | + + + + [...] | + + + | Blood | [facility], CORE [address] [facility] | | | [place] [address] | + + + + + | [...] | + + + | Blood | [facility], CORE [address] [facility] | | | [place] [address] | + + + + + | [...] | | ------ CBC (HEMOGRAM) | | ONLY[[id number]] Abnormal Final | | result Please view [...] [address] | | | [place] [address] | + + + CAPILLARY BLOOD GLUCOSE [...] [address] | | | [place] [address] | + + + CBC (HEMOGRAM) ONLY [...] | + + + | Blood | [facility], CORE [address] [facility] | | | [place] [address] | + + + + + | [...] | >60 | >60 mL/min | | ICELANDIC | | | + + + + | EGFR NON | >60 | >60 mL/min | | -ICELANDIC | | | + + + + [...] | + + + | Blood | [facility], CORE [address] [place] [address] | | | [place] [address] | + + + + + | [...] | | ------ CBC (HEMOGRAM) | | ONLY[[id number]] Abnormal Final | | result Please view results for these tests on the | | individual orders. | + + OPERATION RECORD (10/12/2017 8:50 PM) + + | Procedure Note | + + | Pilar Cotto MD - 10/12/2017 8:50 PM PDT Date of Service: 10/12/2017 | | Attending Surgeon: Chaz Munoz MD Clinical Courier(s): Randell Dixon M.D., | | fellow. George [...] saline. We then | | placed a 19-Bermudian drain deep into the abscess cavity, tracking [...] 10/12/2017 19:50:06DT: 10/12/2017 20:50:54Job #: | | [id number] | + + X-RAY PORTABLE CHEST 1 VIEW (10/12/2017 7:50 PM) + + + | Specimen | Performing Laboratory | + + + | | [facility] VOICE RECOGNITION 2 | + + + + + | Narrative | + + | EXAM: OR CHEST 1 [...] Note | + + | Service Account, RadiFastgen Res In Interface - 10/13/2017 9:04 AM [...] Dixon MD fellow George Noriega MD R2 Carno Cotto | | R2 Preoperative Diagnosis: Post-gastrostomy [...] + + + | | [facility] TESTS [address] | | | [place] [address] | + + + CT ABDOMEN AND PELVIS W IV CONTRAST (10/12/2017 9:05 AM) + + + | Specimen | Performing Laboratory | + + + | | [facility] VOICE RECOGNITION 2 | + + [...] | + + + | Blood | [facility] [address] [facility] | | | [place] [address] | + + + + + | [...] | >60 | >60 mL/min | | ICELANDIC | | | + + + + | EGFR NON | >60 | >60 mL/min | | -ICELANDIC | | | + + + + [...] | + + + | Blood | [facility], CORE [address] [facility] | | | [place] [address] | + + + + + | [...] | | ------ CBC (HEMOGRAM) | | ONLY[[id number]] Abnormal Final | | result Please view [...] | + + + | Blood | [facility], CORE [address] | | | [place] [address] | + + + + + | [...] Laboratory | + + + | | [facility] [address] [place] [address] | | | [place] [address] | + + + 12 LEAD ECG [...] Laboratory | + + + | | [facility] [address] [place] [address] | | | [place] [address] | + + + CBC (HEMOGRAM) ONLY [...] | + + + | Blood | [facility], [facility] [address] [facility] | | | [place] [address] | + + + + + | [...] | + + + | Blood | [facility], CORE [address] [facility] | | | [place] [address] | + + + + + | [...] | >60 | >60 mL/min | | ICELANDIC | | | + + + + | EGFR NON | >60 | >60 mL/min | | -ICELANDIC | | | + + + + [...] | + + + | Blood | [facility], CORE [address] [facility] | | | [place] [address] | + + + + + | [...] | | ------ CBC (HEMOGRAM) | | ONLY[[id number]] Abnormal Final | | result Please view results for these tests on the | | individual orders. | + + PROCEDURE NOTE (10/10/2017 10:00 PM) + + | Narrative | + + | Darius Link MD 10/12/2017 11:11 AM OPERATIVE REPORT DATE OF | | OPERATION: 10/10/2017 ATTENDING SURGEON: 1. Dr. Munoz SALES APPRENTICE: 1. Darius | | MD Nikolay INDICATIONS: Dysphagia and need for postie nutrition access | | PREOPERATIVE DIAGNOSIS: 1.Dysphagia and need for postie nutrition access | | POSTOPERATIVE DIAGNOSIS: 1.Same [...] to follow. | | [place] [id number] Chief Resident Neurosurgery | + + CBC [...] | + + + | Blood | [facility], CORE [address] [facility] | | | [place] [address] | + + + + + | [...] | | ------ CBC (HEMOGRAM) | | ONLY[[id number]] Abnormal Final | | result Please view [...] | >60 | >60 mL/min | | ICELANDIC | | | + + + + | EGFR NON | >60 | >60 mL/min | | -ICELANDIC | | | + + + + [...] | + + + | Blood | [facility], CORE [address] [facility] | | | [place] [address] | + + + + + | [...] | + + + | Blood | [facility], CORE [address] [facility] | | | [place] [address] | + + + + + | Narrative | + + | Reference range change effective 12/11/16. | + + OPERATION RECORD (10/10/2017 12:40 PM) + + | Procedure Note | + + | Magdiel Stock MD - 10/10/2017 12:40 PM PDT Date of Service: 10/10/2017 Attending | | Surgeon: Magdiel Stock MD Clinical Courier(s): Cecilia Hernandez, | | . Preoperative Diagnoses: [...] the note for this encounter.Sonal Nunez MDOHSU [id number] [facility] | | [place] [id number] Orina, MDFA/MODLDD: | | 10/10/2017 11:52:15DT: 10/10/2017 12:40:41Job #: [id number] | | | | | |I was present for the critical portions of the procedure as described in the note for this encounter. | | | |Magdiel Stock MD | | | |Magdiel Stock MD | |[address] | |[address] [facility] | |[facility] | |[place] [address] | |[phone] | | | | | |Magdiel Stock MD | |FAH/MODL | | | | | | /[id number] | + + X-RAY ABDOMEN 1 VIEW [...] + + | Tissue - Head | [facility] [address] [place], [place] | | | [address] | + + + + + | [...] + + | Swab - Head | [facility] [address] [place] [address] | | | [address] | + + + + + | [...] + + | Swab - Head | [facility] [place] [address] [place], [place] | | | [address] | + + + + + | [...] + + | Swab - Head | [facility] [address] [place] [address] | | | [address] | + + + + + | Narrative | + + | Culture Report: No acid fast bacteria isolated at 6 weeks. AFB Smear: AFB not | | detected | + + CULTURE, FUNGAL EXCEPT BLOOD, SKIN, HAIR, NAIL (10/10/2017 9:00 AM) + + + | Specimen | Performing Laboratory | + + + | Swab - Head | [facility] [place] [address] [place], [place] | | | [address] | + + + + + | [...] - Head | [facility] [place] [address] [place], [place] | | | [address] | + + + + + | [...] + + | Swab - Head | [facility] [place] [address] [place], [place] | | | [address] | + + + + + | [...] + + | Tissue - Head | [facility] [address] [place], [place] | | | [address] | + + + + + | [...] + + | Tissue - Head | [facility] [place] [address] [place], [place] | | | [address] | + + + + + | [...] - Head | [facility] [place] [address] [place], [place] | | | [address] | + + + + + | [...] + + | Swab - Head | [facility] [address] [place], [place] | | | [address] | + + + + + | [...] + + | Swab - Head | [facility] [address] [place], [place] | | | [address] | + + + + + | Narrative | + + | Culture Report: No acid fast bacteria isolated at 6 weeks. AFB Smear: AFB not | | detected | + + CULTURE, FUNGAL EXCEPT BLOOD, SKIN, HAIR, NAIL (10/10/2017 8:38 AM) + + + | Specimen | Performing Laboratory | + + + | Swab - Head | [facility] [address] [address] [place], [place] | | | [address] | + + + + + | [...] - Head | [facility] [place] [address] [place], [place] | | | [address] | + + + + + | [...] + + | Swab - Head | [facility] [place] [address] [place], [place] | | | [address] | + + + + + | Narrative | + + | Culture Report: No acid fast bacteria isolated at 6 weeks. AFB Smear: AFB not | | detected | + + CULTURE, FUNGAL EXCEPT BLOOD, SKIN, HAIR, NAIL (10/10/2017 8:31 AM) + + + | Specimen | Performing Laboratory | + + + | Swab - Head | [facility] [place] [address] [place], [place] | | | [address] | + + + + + | [...] + + | Swab - Head | [facility] [address] [place], [place] | | | [address] | + + + + + | [...] + + | Swab - Head | [facility] [place] [address] [place], [place] | | | [address] | + + + + + | Narrative | + + | Culture Report: No acid fast bacteria isolated at 6 weeks. AFB Smear: AFB not | | detected | + + CT HEAD WO CONTRAST (10/10/2017 3:01 AM) + + + | Specimen | Performing Laboratory | + + + | | [facility] VOICE RECOGNITION 2 | + [...] | + + + | Blood | [facility], [address] | | | [place] [address] | + + + CBC (HEMOGRAM) ONLY [...] | + + + | Blood | [facility], CORE [address] [facility] | | | [place] [address] | + + + + + [...] | | ------ CBC (HEMOGRAM) | | ONLY[[id number]] Abnormal Final | | result Please view [...] | + + + | Blood | [facility], [facility] [address] | | | [place] [address] | + + + + + | [...] | >60 | >60 mL/min | | ICELANDIC | | | + + + + | EGFR NON | >60 | >60 mL/min | | -ICELANDIC | | | + + + + [...] | + + + | Blood | [facility], [facility] [address] [facility] | | | [facility] [address] | + + + + + | [...] | + + + | | [facility] [address] [place] [address] | | | [place] [address] | + + + PRODUCT - RED CELLS LEUKOREDUCED (10/09/2017 5:12 PM) + + + + | Component | Value | Ref Range | + + + + | PRODUCT DESCRIPTION | -1 RED BLOOD CELL ADENINE-SALINE ADDED | | | | LEUKOCYTE | | + + + + | PRODUCT UNIT # | [id number] | | + + + + | UNIT ABO | O | | + + + + | UNIT RH | POS | | + + + + | STATUS OF UNIT | Returned to Blood Bank | | + + + + | EXPIRATION DATE | [id number] | | + + + + | BLOOD TYPE BARCODE | 5100 | | + + + + | BLOOD PRODUCT CODE | [id number] | | + + + + + + + | Specimen | Performing Laboratory | + + + | | [facility], TRANSF[facility]ION MEDICINE [address] [facility] | | | [place] [address] | + + + PRODUCT - RED CELLS LEUKOREDUCED (10/09/2017 5:12 PM) + + + + | Component | Value | Ref Range | + + + + | PRODUCT DESCRIPTION | -1 RED BLOOD CELL ADENINE-SALINE ADDED | | | | LEUKOCYTE | | + + + + | PRODUCT UNIT # | [id number] | | + + + + | UNIT ABO | O | | + + + + | UNIT RH | POS | | + + + + | STATUS OF UNIT | Returned to Blood Bank | | + + + + | EXPIRATION DATE | [id number] | | + + + + | BLOOD TYPE BARCODE | 5100 | | + + + + | BLOOD PRODUCT CODE | [id number] | | + + + + + + + | Specimen | Performing Laboratory | + + + | | [facility], TRANSF[facility]ION MEDICINE [address] [facility] | | | [place] [address] | + + + ANTIBODY IDENTIFICATION (10/09/2017 5:01 PM) + + + + | Component | Value | Ref Range | + + + + | ANTIBODY 1 | Antibody present, unable to identify | | + + + + + + + | Specimen | Performing Laboratory | + + + | Blood | [facility], TRANSF[facility]ION MEDICINE [address] [facility] | | | [place] [address] | + + + ANTIBODY SCREEN (10/09/2017 5:01 PM) + + + + | Component | Value | Ref Range | + + + + | Antibody Screen | Positive | | + + + + + + + | Specimen | Performing Laboratory | + + + | Blood | [facility], TRANSF[facility]ION MEDICINE [address] [facility] | | | [place] [address] | + + + ABO & RH [...] | + + + | Blood | [facility], TRANSF[facility]ION MEDICINE [address] [facility] | | | [place] [address] | + + + TYPE AND SCREEN [...] | ------ ABO & RH | | TYPE[[id number]] F | | inal result ANTIBODY | | SCREEN[[id number]] Fin | | al result Please view [...] | + + + | Blood | [facility], CORE [address] [place] [address] | | | [place] [address] | + + + + + | [...] | + + + | | [facility] [address] [place] [address] | | | [place] [address] | + + + VASC LAB VENOUS DUPLEX LOWER EXTREMITY BILAT COMP (10/08/2017 10:05 AM) + + + | Specimen | Performing Laboratory | + + + | | [facility] VASC US | + + [...] Note | + + | Service Account, Flightfox Res In Interface - 10/08/2017 10:47 AM [...] TESTS [address] | | | [place] [address] | + + + CBC (HEMOGRAM) ONLY [...] | + + + | Blood | [facility], CORE [address] [facility] | | | [place] [address] | + + + + + | [...] | + + + | Blood | [facility], [facility] [address] [place] [address] | | | [place] [address] | + + + + + | [...] | | ------ CBC (HEMOGRAM) | | ONLY[[id number]] Abnormal Final | | result Please view [...] | >60 | >60 mL/min | | ICELANDIC | | | + + + + | EGFR NON | >60 | >60 mL/min | | -ICELANDIC | | | + + + + [...] | + + + | Blood | [facility], CORE [address] [facility] | | | [place] [address] | + + + + + | [...] [address] | | | [place] [address] | + + + CAPILLARY BLOOD GLUCOSE (NO CHG), POC (10/07/2017 10:30 PM) + +---------+ + | Component | Value | Ref Range | + +---------+ + | BLOOD GLUCOSE, POC | 173 (H) | 70 - 99 mg/dL | + +---------+ + + + + | Specimen | Performing Laboratory | + + + | | [facility] POINT [facility] CARE TESTS [address] | | | [place] [address] | + + + CAPILLARY BLOOD GLUCOSE (NO CHG), POC (10/07/2017 6:05 PM) + +---------+ + | Component | Value | Ref Range | + +---------+ + | BLOOD GLUCOSE, POC | 129 (H) | 70 - 99 mg/dL | + +---------+ + + + + | Specimen | Performing Laboratory | + + + | | [facility], POINT OF CARE TESTS [address] | | | [place] [address] | + + + CAPILLARY BLOOD GLUCOSE (NO CHG), POC (10/07/2017 11:43 AM) + +---------+ + | Component | Value | Ref Range | + +---------+ + | BLOOD GLUCOSE, POC | 142 (H) | 70 - 99 mg/dL | + +---------+ + + + + | Specimen | Performing Laboratory | + + + | | [facility], POINT OF CARE TESTS [address] | | | [place] [address] | + + + CAPILLARY BLOOD GLUCOSE [...] [address] | | | [place] [address] | + + + CBC (HEMOGRAM) ONLY [...] | + + + | Blood | [facility], CORE [address] [facility] | | | [place] [address] | + + + + + | [...] | + + + | Blood | [facility], [facility] [address] [place] [address] | | | [place] [address] | + + + + + | [...] | >60 | >60 mL/min | | ICELANDIC | | | + + + + | EGFR NON | >60 | >60 mL/min | | -ICELANDIC | | | + + + + [...] | + + + | Blood | [facility], CORE [address] [facility] | | | [place] [address] | + + + + + | [...] [address] | | | [place] [address] | + + + CAPILLARY BLOOD GLUCOSE (NO CHG), POC (10/06/2017 6:03 PM) + +---------+ + | Component | Value | Ref Range | + +---------+ + | BLOOD GLUCOSE, POC | 107 (H) | 70 - 99 mg/dL | + +---------+ + + + + | Specimen | Performing Laboratory | + + + | | [facility]T [facility], POINT OF CARE TESTS [address] | | | [place] [address] | + + + 12 LEAD ECG [...] | + + + | | [facility] [address] [place] [address] | | | [place] [address] | + + + CAPILLARY BLOOD GLUCOSE [...] TESTS [address] | | | [place] [address] | + + + CBC (HEMOGRAM) ONLY [...] | + + + | Blood | [facility], CORE [address] [facility] | | | [place] [address] | + + + + + | [...] | + + + | Blood | [facility], CORE [address] [facility] | | | [place] [address] | + + + + + | [...] | | ------ CBC (HEMOGRAM) | | ONLY[[id number]] Abnormal Final | | result Please view [...] | >60 | >60 mL/min | | ICELANDIC | | | + + + + | EGFR NON | >60 | >60 mL/min | | -ICELANDIC | | | + + + + [...] | + + + | Blood | [facility], CORE [address] [facility] | | | [place] [address] | + + + + + | [...] [address] | | | [place] [address] | + + + CAPILLARY BLOOD GLUCOSE (NO CHG), POC (10/06/2017 1:04 AM) + +-------+ + | Component | Value | Ref Range | + +-------+ + | BLOOD GLUCOSE, POC | 91 | 70 - 99 mg/dL | + +-------+ + + + + | Specimen | Performing Laboratory | + + + | | [facility], PO[facility] CARE TESTS [address] | | | [place] [address] | + + + CAPILLARY BLOOD GLUCOSE [...] [facility], POINT OF CARE TESTS [address] | | | [place] [address] | + + + CAPILLARY BLOOD GLUCOSE (NO CHG), POC (10/05/2017 12:24 PM) + +---------+ + | Component | Value | Ref Range | + +---------+ + | BLOOD GLUCOSE, POC | 141 (H) | 70 - 99 mg/dL | + +---------+ + + + + | Specimen | Performing Laboratory | + + + | | [facility], POINT OF CARE TESTS [address] | | | [place] [address] | + + + 12 LEAD ECG [...] Laboratory | + + + | | [facility] [address] [place] [address] | | | [place] [address] | + + + CBC (HEMOGRAM) ONLY [...] | + + + | Blood | [facility], [facility] [address] [facility] [address] | | | [place] [address] | + + + + + | [...] | + + + | Blood | [facility], CORE [address] | | | [place] [address] | + + + + + | [...] | | ------ CBC (HEMOGRAM) | | ONLY[[id number]] Abnormal Final | | result Please view [...] | >60 | >60 mL/min | | ICELANDIC | | | + + + + | EGFR NON | >60 | >60 mL/min | | -ICELANDIC | | | + + + + [...] | + + + | Blood | [facility], CORE [address] [facility] | | | [place] [address] | + + + + + | [...] | + + + | | [facility], [facility] TESTS [address] | | | [place] [address] | + + + CAPILLARY BLOOD GLUCOSE (NO CHG), POC (10/04/2017 11:48 PM) + +---------+ + | Component | Value | Ref Range | + +---------+ + | BLOOD GLUCOSE, POC | 131 (H) | 70 - 99 mg/dL | + +---------+ + + + + | Specimen | Performing Laboratory | + + + | | [facility] POINT OF CARE TESTS [address] | | | [place] [address] | + + + CAPILLARY BLOOD GLUCOSE [...] [address] | | | [place] [address] | + + + CAPILLARY BLOOD GLUCOSE [...] [address] | | | [place] [address] | + + + CAPILLARY BLOOD GLUCOSE [...] [address] | | | [place] [address] | + + + CBC (HEMOGRAM) ONLY [...] | + + + | Blood | [facility], CORE [address] [facility] [address] | | | [place] [address] | + + + + + | [...] | + + + | Blood | [facility], CORE [address] [facility] | | | [facility] [address] | + + + + + | [...] | | ------ CBC (HEMOGRAM) | | ONLY[[id number]] Abnormal Final | | result Please view [...] | >60 | >60 mL/min | | ICELANDIC | | | + + + + | EGFR NON | >60 | >60 mL/min | | -ICELANDIC | | | + + + + [...] | + + + | Blood | [facility], [facility] [address] [facility] [address] | | | [place] [address] | + + + + + | [...] Laboratory | + + + | | [facility], POINT OF CARE TESTS [address] | | | [place] [address] | + + + CAPILLARY BLOOD GLUCOSE [...] [address] | | | [place] [address] | + + + URINE, MICROSCOPIC EXAM [...] + | Urine - Clean catch | [facility], CORE [address] [facility] | | | [place] [address] | + + + RPR SERUM (10/03/2017 3:36 PM) + + + + | Component | Value | Ref Range | + + + + | RPR SRM QUAL | Non ReactiveComment: Rapid Plasma Reagin | Non Reactive | | | screening test is Non-Reactive. No further | | | | reflex testing is required.Performed by | | | | [facility],[address] [place] [address], [place], [place] | | | | [id number] bwo[employer], Gui | | | | MD Arcadio, Lab. Director | | | |www[employer], Gui Ervin MD, Lab. Director | | + + + + + + + | Specimen | Performing Laboratory | + + + | Blood | [facility] [address] [facility] | | | [place] [address] | + + + VITAMIN B-12 (10/03/2017 [...] | + + + | Blood | [facility], CORE [address] [facility] | | | [facility] [place] [address] | + + + TSH (10/03/2017 3:36 PM) + + + + | Component | Value | Ref Range | + + + + | TSH | 0.33 (L) | 0.46 - 5.56 mIU/L | + + + + + + + | Specimen | Performing Laboratory | + + + | Blood | [facility], CORE [address] [facility] | | | [place] [address] | + + + + + | [...] | + + + | Blood | [facility], [facility] [address] [facility] | | | [place] [address] | + + + + + | Narrative | + + | HIV-1 p24 Ag and HIV-1,2 Ab not detected. Test modified from original | | storage battery tester's approved specifications. The performance of the SOFTWARE SPECIALIST HIV Combo | | test, with or [...] SELENA GENAO, POINT OF CARE TESTS [address] [facility] | | | [place] [address] | + + + CAPILLARY BLOOD GLUCOSE (NO CHG), POC (10/03/2017 6:13 AM) + +---------+ + | Component | Value | Ref Range | + +---------+ + | BLOOD GLUCOSE, POC | 109 (H) | 70 - 99 mg/dL | + +---------+ + + + + | Specimen | Performing Laboratory | + + + | | [facility], POINT OF CARE TESTS [address] | | | [place] [address] | + + + CBC (HEMOGRAM) ONLY [...] | + + + | Blood | [facility], CORE [address] [facility] | | | [place] [address] | + + + + + | [...] | + + + | Blood | [facility], CORE [address] [place] [address] [place] | | | [place] [address] | + + + + + | [...] | | ------ CBC (HEMOGRAM) | | ONLY[[id number]] Abnormal Final | | result Please view [...] | >60 | >60 mL/min | | ICELANDIC | | | + + + + | EGFR NON | >60 | >60 mL/min | | -ICELANDIC | | | + + + + [...] | + + + | Blood | [facility], CORE [address] [facility] | | | [place] [address] | + + + + + | [...] [address] | | | [place] [address] | + + + X-RAY SPINE CERVICAL 2 VIEWS (10/02/2017 10:32 PM) + + + | Specimen | Performing Laboratory | + + + | | [facility] VOICE RECOGNITION 2 | + [...] + | | SELENA GENAO POINT OF [facility] TESTS [address] | | | [place] [address] | + + + 12 LEAD ECG [...] | + + + | | [facility] [address] [place] [address] | | | [place] [address] | + + + PROCEDURE NOTE (10/02/2017 [...] Laboratory | + + + | | [facility] VOICE RECOGNITION 2 | + + + + + | Narrative | + + | EXAM: OR CHEST 1 [...] | + + + | | [facility], POINT OF CARE TESTS [address] | | | [place] [address] | + + + X-RAY PORTABLE CHEST 1 VIEW (10/02/2017 8:56 AM) + + + | Specimen | Performing Laboratory | + + + | | [facility] VOICE RECOGNITION 2 | + + + + + | Narrative | + + | EXAM: OR CHEST 1 [...] Note | + + | Service Account, Flightfox Res In Interface - 10/02/2017 10:27 AM [...] | + + + | | [facility], POINT OF CARE TESTS [address] | | | [place] [address] | + + + CBC (HEMOGRAM) ONLY [...] | + + + | Blood | [facility], CORE [address] [place] [address] | | | [place] [address] | + + + + + | [...] | + + + | Blood | [facility], CORE [address] [facility] | | | [place] [address] | + + + + + | [...] | | ------ CBC (HEMOGRAM) | | ONLY[[id number]] Abnormal Final | | result Please view [...] | >60 | >60 mL/min | | ICELANDIC | | | + + + + | EGFR NON | >60 | >60 mL/min | | -ICELANDIC | | | + + + + [...] | + + + | Blood | [facility], CORE [address] [facility] | | | [place] [address] | + + + + + | [...] | + + + | | [facility], POINT OF CARE TESTS [address] | | | [place] [address] | + + + CAPILLARY BLOOD GLUCOSE (NO CHG), POC (10/01/2017 7:31 PM) + +---------+ + | Component | Value | Ref Range | + +---------+ + | BLOOD GLUCOSE, POC | 104 (H) | 70 - 99 mg/dL | + +---------+ + + + + | Specimen | Performing Laboratory | + + + | | SELENA GENAO POINT OF [facility] TESTS [address] | | | [place] [address] | + + + X-RAY ABD LTD FEEDING TUBE EVAL (10/01/2017 1:23 PM) + + + | Specimen | Performing Laboratory | + + + | | [facility] VOICE RECOGNITION 2 | + [...] [address] | | | [place] [address] | + + + VASC LAB VENOUS DUPLEX LOWER EXTREMITY BILAT COMP (10/01/2017 11:14 AM) + + + | Specimen | Performing Laboratory | + + + | | [facility] VAS US | + + + + [...] Note | + + | Service Account, Tagged In Interface - 10/01/2017 11:34 AM PDT [...] [address] | | | [place] [address] | + + + CBC (HEMOGRAM) ONLY [...] | + + + | Blood | [facility], CORE [address] | | | [place] [address] | + + + + + | [...] | + + + | Blood | [facility], CORE [address] [facility] [place] | | | [place] [address] | + + + + + | [...] | | ------ CBC (HEMOGRAM) | | ONLY[[id number]] Abnormal Final | | result Please view [...] | >60 | >60 mL/min | | ICELANDIC | | | + + + + | EGFR NON | >60 | >60 mL/min | | -ICELANDIC | | | + + + + [...] | + + + | Blood | [facility], CORE [address] [facility] | | | [place], [place] [address] | + + + + + | [...] [address] | | | [place] [address] | + + + CAPILLARY BLOOD GLUCOSE (NO CHG), POC (09/30/2017 6:01 PM) + +---------+ + | Component | Value | Ref Range | + +---------+ + | BLOOD GLUCOSE, POC | 102 (H) | 70 - 99 mg/dL | + +---------+ + + + + | Specimen | Performing Laboratory | + + + | | [facility], POINT OF CARE TESTS [address] | | | [place] [address] | + + + 12 LEAD ECG [...] | | [facility] CARDIOLOGY [address] [facility] | | | [place] [address] | + + + CT HEAD WO [...] Note | + + | Service Account, Flightfox Res In Interface - 09/30/2017 1:28 PM [...] | + + + | | [facility], POINT OF CARE TESTS [address] | | | [place] [address] | + + + CAPILLARY BLOOD GLUCOSE [...] [address] | | | [place] [address] | + + + CBC (HEMOGRAM) ONLY [...] | + + + | Blood | [facility], [facility] [address] | | | [place] [address] | + + + + + | [...] | + + + | Blood | [facility], CORE [address] [facility] | | | [place] [address] | + + + + + | [...] | | ------ CBC (HEMOGRAM) | | ONLY[[id number]] Abnormal Final | | result Please view [...] | >60 | >60 mL/min | | ICELANDIC | | | + + + + | EGFR NON | >60 | >60 mL/min | | -ICELANDIC | | | + + + + [...] | + + + | Blood | [facility], [facility] [address] | | | [place] [address] | + + + + + | [...] [address] | | | [place] [address] | + + + CAPILLARY BLOOD GLUCOSE (NO CHG), POC (09/29/2017 5:53 PM) + +---------+ + | Component | Value | Ref Range | + +---------+ + | BLOOD GLUCOSE, POC | 124 (H) | 70 - 99 mg/dL | + +---------+ + + + + | Specimen | Performing Laboratory | + + + | | [facility], POINT OF CARE TESTS [address] | | | [place] [address] | + + + CAPILLARY BLOOD GLUCOSE (NO CHG), POC (09/29/2017 12:46 PM) + +---------+ + | Component | Value | Ref Range | + +---------+ + | BLOOD GLUCOSE, POC | 117 (H) | 70 - 99 mg/dL | + +---------+ + + + + | Specimen | Performing Laboratory | + + + | | [facility] POINT OF CARE TESTS [address] | | | [place] [address] | + + + 12 LEAD ECG [...] Laboratory | + + + | | [facility] [address] [place] [address] | | | [place] [address] | + + + CAPILLARY BLOOD GLUCOSE [...] GENAO POINT OF CARE TESTS [address] | | | [place] [address] | + + + MAGNESIUM, PLASMA (09/29/2017 4:30 AM) + +-------+ + | Component | Value | Ref Range | + +-------+ + | MAGNESIUM,PLASMA | 2.1 | 1.6 - 2.6 mg/dL | + +-------+ + + + + | Specimen | Performing Laboratory | + + + | Blood | [facility], CORE [address] [facility] | | | [place] [address] | + + + + + | [...] | >60 | >60 mL/min | | ICELANDIC | | | + + + + | EGFR NON | >60 | >60 mL/min | | -ICELANDIC | | | + + + + [...] | + + + | Blood | [facility], CORE [address] [facility] | | | [place] [address] | + + + + + [...] | + + + | Blood | [facility], CORE [address] [facility] | | | [place] [address] | + + + + + | [...] | | ------ CBC (HEMOGRAM) | | ONLY[[id number]] Abnormal Final | | result Please view [...] [address] | | | [place] [address] | + + + CAPILLARY BLOOD GLUCOSE (NO CHG), POC (09/28/2017 5:26 PM) + +---------+ + | Component | Value | Ref Range | + +---------+ + | BLOOD GLUCOSE, POC | 112 (H) | 70 - 99 mg/dL | + +---------+ + + + + | Specimen | Performing Laboratory | + + + | | [facility], POINT OF CARE TESTS [address] | | | [place] [address] | + + + CAPILLARY BLOOD GLUCOSE [...] [address] | | | [place] [address] | + + + 12 LEAD ECG [...] Laboratory | + + + | | [facility] [address] [place] [address] | | | [place] [address] | + + + CAPILLARY BLOOD GLUCOSE [...] [address] | | | [place] [address] | + + + CBC (HEMOGRAM) ONLY [...] | + + + | Blood | [facility], CORE [address] [place] [address] | | | [facility] [place] [address] | + + + + + | [...] | + + + | Blood | [facility], CORE [address] [facility] | | | [place] [address] | + + + + + | [...] | | ------ CBC (HEMOGRAM) | | ONLY[[id number]] Abnormal Final | | result Please view [...] | >60 | >60 mL/min | | ICELANDIC | | | + + + + | EGFR NON | >60 | >60 mL/min | | -ICELANDIC | | | + + + + [...] | + + + | Blood | [facility], CORE [address] [place] [address] | | | [place] [address] | + + + + + | [...] [address] | | | [place] [address] | + + + CAPILLARY BLOOD GLUCOSE [...] [address] | | | [place] [address] | + + + MODIFIED BARIUM SWALLOWING (09/27/2017 1:38 PM) + + + | Specimen | Performing Laboratory | + + + | | [facility] VOICE RECOGNITION 2 | + + + [...] poorly cleared with dry swallows. Please see [facility] for full details | | [...] [address] | | | [place] [address] | + + + CAPILLARY BLOOD GLUCOSE (NO CHG), POC (09/27/2017 5:58 AM) + +---------+ + | Component | Value | Ref Range | + +---------+ + | BLOOD GLUCOSE, POC | 171 (H) | 70 - 99 mg/dL | + +---------+ + + + + | Specimen | Performing Laboratory | + + + | | [facility] POINT OF CARE TESTS [address] | | | [place] [address] | + + + CBC (HEMOGRAM) ONLY [...] | + + + | Blood | [facility], CORE [address] [facility] | | | [place] [address] | + + + + + | [...] | | ------ CBC (HEMOGRAM) | | ONLY[[id number]] Abnormal Final | | result Please view [...] | + + + | Blood | [facility], [facility] [address] [facility] | | | [place] [address] | + + + + + | [...] | >60 | >60 mL/min | | ICELANDIC | | | + + + + | EGFR NON | >60 | >60 mL/min | | -ICELANDIC | | | + + + + [...] | + + + | Blood | [facility], CORE [address] [facility] | | | [place] [address] | + + + + + | [...] + + + | | [facility], POINT OF CARE TESTS [address] | | | [place] [address] | + + + CAPILLARY BLOOD GLUCOSE [...] TESTS [address] | | | [place] [address] | + + + 12 LEAD ECG [...] | + + + | | [facility] C[facility] [address] [place] [address] | | | [place] [address] | + + + CAPILLARY BLOOD GLUCOSE (NO CHG), POC (09/26/2017 12:37 PM) + +-------+ + | Component | Value | Ref Range | + +-------+ + | BLOOD GLUCOSE, POC | 88 | 70 - 99 mg/dL | + +-------+ + + + + | Specimen | Performing Laboratory | + + + | | [facility], POINT OF CARE TESTS [address] | | | [place] [address] | + + + CAPILLARY BLOOD GLUCOSE (NO CHG), POC (09/26/2017 9:22 AM) + +---------+ + | Component | Value | Ref Range | + +---------+ + | BLOOD GLUCOSE, POC | 119 (H) | 70 - 99 mg/dL | + +---------+ + + + + | Specimen | Performing Laboratory | + + + | | [facility], POINT OF CARE TESTS [address] | | | [place] [address] | + + + CAPILLARY BLOOD GLUCOSE [...] [address] | | | [place] [address] | + + + CBC (HEMOGRAM) ONLY [...] | + + + | Blood | [facility], CORE [address] [facility] [place] | | | [place] [address] | + + + + + | [...] | + + + | Blood | [facility], [facility] [address] [place] [address] | | | [place] [address] | + + + + + | [...] | | ------ CBC (HEMOGRAM) | | ONLY[[id number]] Abnormal Final | | result Please view [...] | >60 | >60 mL/min | | ICELANDIC | | | + + + + | EGFR NON | >60 | >60 mL/min | | -ICELANDIC | | | + + + + [...] | + + + | Blood | [facility], CORE [address] [facility] | | | [place] [address] | + + + + + | [...] [address] | | | [place] [address] | + + + MRI BRAIN WWO [...] Note | + + | Service Account, LikeAndyant Res In Interface - 09/25/2017 12:32 PM [...] | + + + | Blood | [facility], CORE [address] [facility] | | | [place] [address] | + + + + + | [...] | + + + | Blood | [facility], CORE [address] [place] [address] | | | [place] [address] | + + + + + | [...] | | ------ CBC (HEMOGRAM) | | ONLY[[id number]] Abnormal Final | | result Please view [...] | >60 | >60 mL/min | | ICELANDIC | | | + + + + | EGFR NON | >60 | >60 mL/min | | -ICELANDIC | | | + + + + [...] | + + + | Blood | [facility], CORE [address] [place] [address] | | | [place] [address] | + + + + + | [...] | + + + | | [facility] [address] [place] [address] | | | [facility] [address] | + + + MODIFIED BARIUM SWALLOWING (09/24/2017 12:50 PM) + + + | Specimen | Performing Laboratory | + + + | | [facility] VOICE RECOGNITION 2 | + [...] Note | + + | Service Account, Tagged In Interface - 09/24/2017 2:44 PM PDT [...] Note | + + | Service Account, HeribertoFastgen Res In Interface - 09/24/2017 4:09 PM [...] | + + + | Blood | [facility], CORE [address] [place] [address] | | | [place], [place] [address] | + + + + + | [...] | >60 | >60 mL/min | | ICELANDIC | | | + + + + | EGFR NON | >60 | >60 mL/min | | -ICELANDIC | | | + + + + [...] | + + + | Blood | [facility], CORE [address] [facility] | | | [place] [address] | + + + + + | [...] | + + + | Blood | [facility], CORE [address] [facility] | | | [place] [address] | + + + + + | [...] | | ------ CBC (HEMOGRAM) | | ONLY[[id number]] Abnormal Final | | result Please view [...] | + + + | Blood | [facility], CORE [address] [facility] | | | [place] [address] | + + + + + | [...] | + + + | Blood | [facility], CORE [address] [facility] | | | [place] [address] | + + + + + | [...] | | ------ CBC (HEMOGRAM) | | ONLY[[id number]] Abnormal Final | | result Please view [...] | >60 | >60 mL/min | | ICELANDIC | | | + + + + | EGFR NON | >60 | >60 mL/min | | -ICELANDIC | | | + + + + [...] | + + + | Blood | [facility], CORE [address] [facility] | | | [place] [address] | + + + + + | [...] [address] | | | [place] [address] | + + + CAPILLARY BLOOD GLUCOSE [...] [address] | | | [place] [address] | + + + CT HEAD WO [...] | + + + | Blood | [facility], CORE [address] [facility] | | | [place] [address] | + + + 12 LEAD ECG [...] Laboratory | + + + | | [facility] [address] [place] [address] | | | [place] [address] | + + + CBC (HEMOGRAM) ONLY [...] | + + + | Blood | [facility], CORE [address] [facility] | | | [place] [address] | + + + + + | [...] | + + + | Blood | [facility], CORE [address] [facility] | | | [place] [address] | + + + + + | [...] | | ------ CBC (HEMOGRAM) | | ONLY[[id number]] Abnormal Final | | result Please view [...] | >60 | >60 mL/min | | ICELANDIC | | | + + + + | EGFR NON | >60 | >60 mL/min | | -ICELANDIC | | | + + + + [...] | + + + | Blood | [facility], CORE [address] [facility] | | | [place] [address] | + + + + + | [...] [address] | | | [place] [address] | + + + CT HEAD WO CONTRAST (09/21/2017 9:53 PM) + + + | Specimen | Performing Laboratory | + + + | | [facility] VOICE RECOGNITION 2 | + [...] | + + + | Blood | [facility], CORE [address] [facility] [place] | | | [place] [address] | + + + + + | [...] | + + + | Blood | [facility], CORE [address] [facility] | | | [place] [address] | + + + + + | [...] | | ------ CBC (HEMOGRAM) | | ONLY[[id number]] Abnormal Final | | result Please view [...] | >60 | >60 mL/min | | ICELANDIC | | | + + + + | EGFR NON | >60 | >60 mL/min | | -ICELANDIC | | | + + + + [...] | + + + | Blood | [facility], CORE [address] [place] [address] | | | [place] [address] | + + + + + [...] Laboratory | + + + | | [facility] VOICE RECOGNITION 2 | + [...] Note | + + | Service Account, Flightfox Res In Interface - 09/20/2017 6:25 PM [...] Laboratory | + + + | | [facility] VOICE RECOGNITION 2 | + [...] Laboratory | + + + | | [facility] VOICE RECOGNITION 2 | + [...] Note | + + | Service Account, Flightfox Res In Interface - 09/20/2017 5:17 PM [...] Laboratory | + + + | | [facility] [address] [place] [address] | | | [place] [address] | + + + CBC (HEMOGRAM) ONLY [...] | + + + | Blood | [facility], CORE [address] | | | [place] [address] | + + + + + | [...] | + + + | Blood | [facility], CORE [address] [facility] | | | [place] [address] | + + + + + | [...] | | ------ CBC (HEMOGRAM) | | ONLY[[id number]] Abnormal Final | | result Please view [...] | >60 | >60 mL/min | | ICELANDIC | | | + + + + | EGFR NON | >60 | >60 mL/min | | -ICELANDIC | | | + + + + [...] | + + + | Blood | [facility], [facility] [address] | | | [place] [address] | + + + + + | [...] | + + + | Blood | [facility], CORE [address] [facility] | | | [place] [address] | + + + + + | [...] | + + + | Blood | [facility], CORE [address] [place] [address] | | | [place] [address] | + + + + + [...] | | ------ CBC (HEMOGRAM) | | ONLY[[id number]] Abnormal Final | | result Please view [...] | >60 | >60 mL/min | | ICELANDIC | | | + + + + | EGFR NON | >60 | >60 mL/min | | -ICELANDIC | | | + + + + [...] | + + + | Blood | [facility], CORE [address] [place] [address] | | | [place] [address] | + + + + + | [...] | + + + | Blood | [facility], CORE [address] [facility] | | | [place] [address] | + + + + + | [...] | + + + | Blood | [facility], CORE [address] [facility] | | | [place] [address] | + + + + + | [...] | | ------ CBC (HEMOGRAM) | | ONLY[[id number]] Abnormal Final | | result Please view [...] | >60 | >60 mL/min | | ICELANDIC | | | + + + + | EGFR NON | >60 | >60 mL/min | | -ICELANDIC | | | + + + + [...] | + + + | Blood | [facility], [address] [facility] | | | [place] [address] | + + + + + | [...] | + + + | Blood | [facility], [address] [facility] | | | [place] [address] | + + + + + | [...] | + + + | Blood | [facility], [address] [facility] | | | [place] [address] | + + + + + | [...] | | ------ CBC (HEMOGRAM) | | ONLY[[id number]] Abnormal Final | | result Please view [...] | >60 | >60 mL/min | | ICELANDIC | | | + + + + | EGFR NON | >60 | >60 mL/min | | -ICELANDIC | | | + + + + [...] | + + + | Blood | [facility], [address] [facility] | | | [place] [address] | + + + + + | [...] Laboratory | + + + | | [facility] | + + + + + | Narrative | + + | EXAM: OR CHEST PICC [...] Laboratory | + + + | | [facility] | + + + + + | Narrative | + + | EXAM: OR CHEST PICC [...] Note | + + | Service Account, Tagged In Interface - 09/16/2017 11:41 AM PDT [...] | + + + | Blood | [facility], [address] [facility] | | | [place] [address] | + + + + + | [...] | + + + | Blood | [facility], [address] [facility] | | | [place] [address] | + + + + + | [...] | | ------ CBC (HEMOGRAM) | | ONLY[[id number]] Abnormal Final | | result Please view [...] | >60 | >60 mL/min | | ICELANDIC | | | + + + + | EGFR NON | >60 | >60 mL/min | | -ICELANDIC | | | + + + + [...] | + + + | Blood | [facility], [address] [facility] | | | [place] [address] | + + + + + | [...] | Narrative | + + | EXAM: OR CHEST 1 VIEW HISTORY: COMPARISON: None. FINDINGS: [...] Note | + + | Service Account, Tagged In Interface - 09/15/2017 6:45 PM PDT [...] | Narrative | + + | EXAM: OR CHEST PICC [...] Arm area Basilic vein. Catheter lot number: [id number] with a length of 55 cm | [...] Laboratory | + + + | | [facility] | + + [...] Note | + + | Service Account, Radi[employer] Res In Interface - 09/15/2017 2:13 PM [...] | + + + | Blood | [facility], [address] [facility] [address] | | | [place] [address] | + + + + + | [...] | + + + | Blood | [facility], [address] [facility] | | | [place] [address] | + + + + + | [...] | | ------ CBC (HEMOGRAM) | | ONLY[[id number]] Abnormal Final | | result Please view [...] | >60 | >60 mL/min | | ICELANDIC | | | + + + + | EGFR NON | >60 | >60 mL/min | | -ICELANDIC | | | + + + + [...] | + + + | Blood | [facility], [address] | | | [place] [address] | + + + + + | [...] Laboratory | + + + | | [facility] | + + [...] | + + + | Blood | [facility], [address] [facility] | | | [place] [address] | + + + + + | [...] | + + + | Blood | [facility], CORE [address] [facility] | | | [place], [place] [address] | + + + + + | [...] | | ------ CBC (HEMOGRAM) | | ONLY[[id number]] Abnormal Final | | result Please view [...] | >60 | >60 mL/min | | ICELANDIC | | | + + + + | EGFR NON | >60 | >60 mL/min | | -ICELANDIC | | | + + + + [...] | + + + | Blood | [facility], CORE [address] [facility] | | | [place] [address] | + + + + + | [...] | + + + | Blood | [facility], CORE [address] [facility] | | | [place] [address] | + + + + + | [...] | + + + | Blood | [facility], [facility] [address] [facility] [address] | | | [place] [address] | + + + + + | [...] | | ------ CBC (HEMOGRAM) | | ONLY[[id number]] Abnormal Final | | result Please view [...] | >60 | >60 mL/min | | ICELANDIC | | | + + + + | EGFR NON | >60 | >60 mL/min | | -ICELANDIC | | | + + + + [...] | + + + | Blood | [facility], CORE [address] [facility] | | | [place] [address] | + + + + + | [...] | + + + | Blood | [facility], CORE [address] [place] [address] | | | [place] [address] | + + + + + | [...] | + + + | Blood | [facility], [facility] [address] [facility] | | | [place] [address] | + + + + + | [...] | | ------ CBC (HEMOGRAM) | | ONLY[[id number]] Abnormal Final | | result Please view [...] | >60 | >60 mL/min | | ICELANDIC | | | + + + + | EGFR NON | >60 | >60 mL/min | | -ICELANDIC | | | + + + + [...] | + + + | Blood | [facility], CORE [address] [facility] | | | [place] [address] | + + + + + | [...] Laboratory | + + + | | [facility] VOICE RECOGNITION | + + [...] Laboratory | + + + | | [facility] VOICE RECOGNITION | + + + [...] | + + + | Blood | [facility], CORE [address] [facility] | | | [place] [address] | + + + + + | [...] | + + + | Blood | [facility], [address] | | | [place] [address] | + + + + + | [...] | | ------ CBC (HEMOGRAM) | | ONLY[[id number]] Abnormal Final | | result Please view [...] | >60 | >60 mL/min | | ICELANDIC | | | + + + + | EGFR NON | >60 | >60 mL/min | | -ICELANDIC | | | + + + + [...] | + + + | Blood | [facility], CORE [address] [facility] | | | [place] [address] | + + + + + | [...] | + + + | Blood | [facility], CORE [address] [place] [address] | | | [place] [address] | + + + X-RAY ABD LTD [...] Laboratory | + + + | | [facility] VOICE RECOGNITION | + + + + + | Narrative | + + | STUDY: OR CHEST 1 [...] Note | + + | Service Account, Flightfox Res In Interface - 09/10/2017 9:25 AM [...] | + + + | Blood | [facility], CORE [address] | | | [place] [address] | + + + AMYLASE, PLASMA (09/10/2017 5:08 AM) + +-------+ + | Component | Value | Ref Range | + +-------+ + | AMYLASE,PLASMA | 58 | 25 - 115 U/L | + +-------+ + + + + | Specimen | Performing Laboratory | + + + | Blood | [facility], CORE [address] [facility] [address] | | | [place] [address] | + + + CBC (HEMOGRAM) ONLY [...] | + + + | Blood | [facility], CORE [address] [facility] | | | [place] [address] | + + + + + | [...] | + + + | Blood | [facility], CORE [address] [place] [address] | | | [place] [address] | + + + + + | [...] | | ------ CBC (HEMOGRAM) | | ONLY[[id number]] Abnormal Final | | result Please view [...] | >60 | >60 mL/min | | ICELANDIC | | | + + + + | EGFR NON | >60 | >60 mL/min | | -ICELANDIC | | | + + + + [...] | + + + | Blood | [facility], CORE [address] [place] [address] | | | [place] [address] | + + + + + | [...] + | | [facility] [address] [place] [address] | | | [place] [address] | + + + X-RAY ABD LTD [...] Note | + + | Service Account, Tagged In Interface - 09/10/2017 11:11 AM PDT [...] [address] | | | [place] [address] | + + + MAGNESIUM, PLASMA (09/09/2017 3:50 AM) + +-------+ + | Component | Value | Ref Range | + +-------+ + | MAGNESIUM,PLASMA | 2.0 | 1.6 - 2.6 mg/dL | + +-------+ + + + + | Specimen | Performing Laboratory | + + + | Blood | [facility], CORE [address] | | | [place] [address] | + + + + + | [...] | + + + | Blood | [facility], CORE [address] [facility] | | | [place] [address] | + + + + + | [...] | | ------ CBC (HEMOGRAM) | | ONLY[[id number]] Abnormal Final | | result Please view [...] | >60 | >60 mL/min | | ICELANDIC | | | + + + + | EGFR NON | >60 | >60 mL/min | | -ICELANDIC | | | + + + + [...] | + + + | Blood | [facility], CORE [address] [facility] | | | [place] [address] | + + + + + | [...] | + + + | Blood | [facility], CORE [address] [facility] | | | [place] [address] | + + + + + | [...] | >60 | >60 mL/min | | ICELANDIC | | | + + + + | EGFR NON | >60 | >60 mL/min | | -ICELANDIC | | | + + + + [...] | + + + | Blood | [facility], CORE [address] [facility] | | | [place] [address] | + + + + + | [...] | + + + | Blood | [facility], CORE [address] [place] [address] | | | [place] [address] | + + + LIVER SET (AST,ALT,BILI [...] | + + + | Blood | [facility], CORE [address] [facility] | | | [place] [address] | + + + X-RAY ABD LTD FEEDING TUBE EVAL (09/08/2017 4:38 AM) + + + | Specimen | Performing Laboratory | + + + | | [facility] VOICE RECOGNITION | + + [...] Laboratory | + + + | | [facility] [address] [place] [address] | | | [place] [address] | + + + X-RAY PORTABLE CHEST 1 VIEW (09/07/2017 6:12 AM) + + + | Specimen | Performing Laboratory | + + + | | [facility] VOICE RECOGNITION | + + + + + | Narrative | + + | EXAM: OR CHEST 1 [...] Note | + + | Service Account, RadiFastgen Res In Interface - 09/07/2017 10:46 AM [...] | + + + | Blood | [facility], CORE [address] [facility] | | | [place] [address] | + + + + + | [...] | >60 | >60 mL/min | | ICELANDIC | | | + + + + | EGFR NON | >60 | >60 mL/min | | -ICELANDIC | | | + + + + [...] | + + + | Blood | [facility], CORE [address] [facility] | | | [place] [address] | + + + + + | [...] | + + + | Blood | [facility], CORE [address] [facility] | | | [place] [address] | + + + + + | [...] | | ------ CBC (HEMOGRAM) | | ONLY[[id number]] Abnormal Final | | result Please view [...] Laboratory | + + + | | [facility] [address] [place] [address] | | | [place] [address] | + + + PROCEDURE NOTE (09/06/2017 [...] on the 1st attempt. Midline lot number [id number]; there was positive blood | | return. [...] | >60 | >60 mL/min | | ICELANDIC | | | + + + + | EGFR NON | >60 | >60 mL/min | | -ICELANDIC | | | + + + + [...] | + + + | Blood | [facility], [facility] [address] [facility] [address] | | | [place] [address] | + + + + + | [...] | + + + | Blood | [facility], CORE [address] [facility] | | | [place] [address] | + + + + + | [...] | Narrative | + + | EXAM: OR CHEST 1 [...] Note | + + | Service Account, Flightfox Res In Interface - 09/05/2017 10:16 AM [...] | + + + | Blood | [facility], CORE [address] | | | [facility] [address] | + + + MAGNESIUM, PLASMA (09/05/2017 3:54 AM) + +-------+ + | Component | Value | Ref Range | + +-------+ + | MAGNESIUM,PLASMA | 1.8 | 1.6 - 2.6 mg/dL | + +-------+ + + + + | Specimen | Performing Laboratory | + + + | Blood | [facility], CORE [address] | | | [facility] [address] | + + + + + | [...] | >60 | >60 mL/min | | ICELANDIC | | | + + + + | EGFR NON | >60 | >60 mL/min | | -ICELANDIC | | | + + + + [...] | + + + | Blood | [facility], CORE [address] [facility] [address] | | | [place] [address] | + + + + + | [...] | >60 | >60 mL/min | | ICELANDIC | | | + + + + | EGFR NON | >60 | >60 mL/min | | -ICELANDIC | | | + + + + [...] | + + + | Blood | [facility], CORE [address] | | | [place] [address] | + + + + + | [...] Note: Chest Tube Removal | | Name: Berlni Temple 09/04/2017 Time: 2:05 PM Performed By: [...] tomorrow morning. CB Henson Pager / ID: [phone] | + + CULTURE, SPUTUM (09/04/2017 1:17 PM) + + + | Specimen | Performing Laboratory | + + + | Sputum - | [facility] [place] [address] [place], [place] | | Endotracheal tube | [address] | | tip | | + + [...] + | Urine - Catheter - | [facility], CORE [address] [facility] | | indwelling | [place] [address] | + + + UA, DIPSTICK ONLY [...] | SPECIFIC GRAVITY | 1.011Comment: Specific [place] performed by | 1.005 - 1.030 | | | refractometry | | + + + + + + + | Specimen | Performing Laboratory | + + + | Urine - Catheter - | [facility], CORE [address] [facility] | | indwelling | [place] [address] | + + + CULTURE, BLOOD BACTI & YEAST ESLENA (09/04/2017 1:16 PM) + + + + | Component | Value | Ref Range | + + + + | CULTURE RESULT | Final Report:No Bacteria or Yeast isolated | | | | at 5 days. | | + + + + + + + | Specimen | Performing Laboratory | + + + | Blood - Arterial | [facility], CORE [address] | | line | [place] [address] | + + + CULTURE, BLOOD BACTI [...] + + | Blood - Peripheral | [facility], CORE [address] [facility] | | | [place] [address] | + + + CULTURE, BLOOD BACTI [...] ------ CULTURE, BLOOD | | BACTI & Y...[[id number]] Final | | result Please view results [...] ------ CULTURE, BLOOD | | BACTI & Y...[[id number]] Final | | result Please view results [...] Laboratory | + + + | | [facility] [address] [facility] | | | [place] [address] | + + + X-RAY PORTABLE CHEST 1 VIEW (09/04/2017 7:04 AM) + + + | Specimen | Performing Laboratory | + + + | | [facility] VOICE RECOGNITION | + + + + + | Narrative | + + | EXAM: [place] CHEST 1 VIEW HISTORY: Hypoxia. Intubated. COMPARISON: [...] | + + + | Blood | [facility], CORE [address] [place] [address] | | | [place] [address] | + + + CBC (HEMOGRAM) ONLY [...] | + + + | Blood | [facility], CORE [address] [facility] | | | [place] [address] | + + + RENAL FUNCTION SET [...] | >60 | >60 mL/min | | ICELANDIC | | | + + + + | EGFR NON | >60 | >60 mL/min | | -ICELANDIC | | | + + + + [...] | + + + | Blood | [facility], CORE [address] | | | [place] [address] | + + + + + | [...] | + + + | Blood | [facility], CORE [address] | | | [place] [address] | + + + + + | [...] | | ------ CBC (HEMOGRAM) | | ONLY[[id number]] Abnormal Final | | result Please view [...] [address] | | | [place] [address] | + + + CAPILLARY BLOOD GLUCOSE [...] [address] | | | [place] [address] | + + + CAPILLARY BLOOD GLUCOSE (NO CHG), POC (09/03/2017 9:22 PM) + +---------+ + | Component | Value | Ref Range | + +---------+ + | BLOOD GLUCOSE, POC | 119 (H) | 70 - 99 mg/dL | + +---------+ + + + + | Specimen | Performing Laboratory | + + + | | [facility], POINT OF CARE TESTS [address] | | | [place] [address] | + + + CAPILLARY BLOOD GLUCOSE (NO CHG), POC (09/03/2017 1:30 PM) + +-------+ + | Component | Value | Ref Range | + +-------+ + | BLOOD GLUCOSE, POC | 97 | 70 - 99 mg/dL | + +-------+ + + + + | Specimen | Performing Laboratory | + + + | | [facility], POINT OF CARE TESTS [address] | | | [place] [address] | + + + VASC LAB VENOUS DUPLEX LOWER EXTREMITY BILAT COMP (09/03/2017 9:51 AM) + + + | Specimen | Performing Laboratory | + + + | | [facility] | + + + [...] Note | + + | Service Account, Tagged In Interface - 09/03/2017 10:27 AM PDT [...] + + + | Sputum - | [facility] [address] [place], [place] | | Expectorated | [phone] | + + + + + | [...] | + + + | Blood | [facility], CORE [address] [facility] | | | [place] [address] | + + + X-RAY ABD LTD FEEDING TUBE EVAL (09/03/2017 4:32 AM) + + + | Specimen | Performing Laboratory | + + + | | [facility] VOICE RECOGNITION | + + [...] + + + | Sputum - | [facility] [address] [place], [place] | | Expectorated | [phone] | + + + + + | [...] | + + + | Blood | [facility], CORE [address] | | | [place] [address] | + + + CBC (HEMOGRAM) ONLY [...] | + + + | Blood | [facility], CORE [address] [place] [address] | | | [place] [address] | + + + RENAL FUNCTION SET [...] | >60 | >60 mL/min | | ICELANDIC | | | + + + + | EGFR NON | >60 | >60 mL/min | | -ICELANDIC | | | + + + + [...] | + + + | Blood | [facility], C[address] [address] | | | [place] [address] | + + + + + | [...] | + + + | Blood | [facility], CORE [address] [facility] | | | [place] [address] | + + + + + | [...] | | ------ CBC (HEMOGRAM) | | ONLY[[id number]] Abnormal Final | | result Please view results for these tests on the | | individual orders. | + + OPERATION RECORD (09/02/2017 6:53 PM) + + | Procedure Note | + + | Fidelina Shields MD - 09/02/2017 6:53 PM PDT Date of Service: 09/02/2017 | | Attending Surgeon: Fidelina Shields MD Clinical Courier(s): | | Ajay Garcia MD, resident. Preoperative [...] 09/02/2017 18:15:29DT: 09/02/2017 18:53:52Job #: | | [id number] to federal Medicare and Medicaid regulations I was present for | | the entire procedure.Fidelina Tenorio ProfessorDepartment of SurgeryOffice: | | [phone]: [id number] has been electronically signed by Fidelina Shields MD, | | 09/03/2017 at 9:11 AM. | | | | | |Fidelina Shields MD | |Neurology Physician | |Department of Surgery | |Office: [phone] | |Pager: [phone] | | | |This has been electronically [...] | + + + | Blood | [facility], CORE [address] [place] [address] | | | [place] [address] | + + + BLOOD GASES, ARTERIAL [...] | + + + | Blood | [facility], CORE [address] [facility] | | | [place], [place] [address] | + + + CULTURE, AFB (ALL SPEC TYPES EXCEPT BLOOD) (09/02/2017 5:10 PM) + + + | Specimen | Performing Laboratory | + + + | Sputum - | [facility] [place] [id number] [place] [address] | | Expectorated | [phone] | + + + + + | [...] | + + + | Blood | [facility], CORE [address] [facility] | | | [place] [address] | + + + + + | [...] | >60 | >60 mL/min | | ICELANDIC | | | + + + + | EGFR NON | >60 | >60 mL/min | | -ICELANDIC | | | + + + + [...] | + + + | Blood | [facility], CORE [address] [facility] | | | [place] [address] | + + + + + | [...] INGRID Zhang | | Yolanda Garcia Surgery [id number] Pursuant to federal Medicare and Medicaid regulations I | | was present for the entire procedure. Fidelina Shields MD Clinical Courier | | Professor Department of Surgery Office: [phone] Pager: [phone] This has been | | electronically signed [...] | + + + | Blood | [facility], CORE [address] [facility] | | | [place] [address] | + + + INR (09/02/2017 9:39 AM) + + + + | Component | Value | Ref Range | + + + + | INR | 1.26 (H) | 0.90 - 1.20 INR | + + + + + + + | Specimen | Performing Laboratory | + + + | Blood | [facility], CORE [address] [facility] | | | [place] [address] | + + + + + | [...] | Attending Surgeon: Fidelina Shields MD Clinical Courier(s): Haim Peralta MD. | | Ajay Garcia [...] 09/02/2017 06:17:53DT: 09/02/2017 | | 06:51:37Job #: [id number] to federal Medicare and Medicaid regulations I | | was present for the entire procedure.Fidelina Tenorio ProfessorDepartment of | | SurgeryOffice: [phone]: [id number] has been electronically signed by Fidelina Radford | MD Cornelius, 09/02/2017 at 10:40 AM. | | | | | |Pursuant to federal Medicare and Medicaid regulations I was present for the entire procedur e. | | | | | | | |Fidelina Shields MD | |Neurology Physician | |Department of Surgery | |Office: [phone] | |Pager: [phone] | | | |This has been electronically [...] | + + + | Blood | [facility], CORE [address] [facility] | | | [facility] [address] | + + + HEMATOCRIT (09/02/2017 5:16 AM) + + + + | Component | Value | Ref Range | + + + + | HEMATOCRIT | 34.0 (L) | 41.0 - 53.0 % | + + + + + + + | Specimen | Performing Laboratory | + + + | Blood | [facility], CORE [address] [facility] | | | [place] [address] | + + + PRODUCT - RED CELLS LEUKOREDUCED (09/02/2017 2:53 AM) + + + + | Component | Value | Ref Range | + + + + | PRODUCT DESCRIPTION | -1 RED BLOOD CELL ADENINE-SALINE ADDED | | | | LEUKOCYTE | | + + + + | PRODUCT UNIT # | [id number] | | + + + + | UNIT ABO | O | | + + + + | UNIT RH | POS | | + + + + | STATUS OF UNIT | Presumed Transfused | | + + + + | EXPIRATION DATE | [id number] | | + + + + | BLOOD TYPE BARCODE | 5100 | | + + + + | BLOOD PRODUCT CODE | [id number] | | + + + + + + + | Specimen | Performing Laboratory | + + + | | [facility], TRANSFUSION MEDICINE [address] [facility] | | | [place] [address] | + + + CT PELVIS WO IV CONTRAST (09/02/2017 1:45 AM) + + + | Specimen | Performing Laboratory | + + + | | [facility] VOICE RECOGNITION | + + [...] | + + + | Blood | [facility], CORE [address] [facility] | | | [place] [address] | + + + RENAL FUNCTION SET [...] | >60 | >60 mL/min | | ICELANDIC | | | + + + + | EGFR NON | >60 | >60 mL/min | | -ICELANDIC | | | + + + + [...] | + + + | Blood | [facility], CORE [address] [facility] | | | [place] [address] | + + + + + | [...] | + + + | Blood | [facility], CORE [address] [place] [address] | | | [place] [address] | + + + + + | [...] | | ------ CBC (HEMOGRAM) | | ONLY[[id number]] Abnormal Final | | result Please view [...] | | (http://www.cdc.gov/mmwr/preview/mmwrhtml/r | | | | [email or web address].htm), for information concerning | | | | test performance in low-prevalence | | | | populations and use in occupational | | | | screening. | | + + + + | NIL | 0.05Comment: Performed by [employer] | IU/mL | | | [employer], | | | | [address], | | | | [place] [address] | | | | [phone] | | | | [email or web address].[employer], Gui Ervin MD - | | | | Lab. Director | | + + + + | TB AG-NIL | 0.26 | 0.00 - 0.34 IU/mL | + + + + | MITOGEN-NIL | 9.35 | IU/mL | + + + + + + + | Specimen | Performing Laboratory | + + + | Blood | [facility] [place] [address] [place], [place] | | | [address] | + + + LACTATE (09/01/2017 8:18 PM) + +-------+ + | Component | Value | Ref Range | + +-------+ + | LACTATE | 1.6 | mmol/L | + +-------+ + + + + | Specimen | Performing Laboratory | + + + | Blood | [facility], CORE [address] [facility] | | | [place] [address] | + + + + + | [...] | + + + | Blood | [facility], [address]ORE [address] [facility] | | | [place] [address] | + + + X-RAY KNEE 2 VIEWS LEFT (09/01/2017 7:48 PM) + + + | Specimen | Performing Laboratory | + + + | | [facility] RECOGNITION | + + [...] Note | + + | Service Account, [employer] Res In Interface - 09/02/2017 8:55 AM [...] | Narrative | + + | EXAM: OR CHEST 1 [...] | + + + | Blood | [facility], CORE [address] | | | [place] [address] | + + + HEMATOCRIT (09/01/2017 5:43 PM) + + + + | Component | Value | Ref Range | + + + + | HEMATOCRIT | 34.1 (L) | 41.0 - 53.0 % | + + + + + + + | Specimen | Performing Laboratory | + + + | Blood | [facility], CORE [address] | | | [facility] [place] [address] | + + + PRODUCT - PLATELET PHERESIS LEUKOREDUCED (09/01/2017 4:42 PM) + + + + | Component | Value | Ref Range | + + + + | PRODUCT DESCRIPTION | PLATELETS PHERESIS LEUKOCYTE REDUCED | | + + + + | PRODUCT UNIT # | [id number] | | + + + + | UNIT ABO | O | | + + + + | UNIT RH | POS | | + + + + | STATUS OF UNIT | Presumed Transfused | | + + + + | EXPIRATION DATE | [id number] | | + + + + | BLOOD TYPE BARCODE | | | + + + + | BLOOD PRODUCT CODE | [id number] | | + + + + + + + | Specimen | Performing Laboratory | + + + | | [facility], TRANSFUSION MEDICINE [address] [place] [address] | | | [place] [address] | + + + BLOOD GASES, ARTERIAL [...] | + + + | Blood | [facility], CORE [address] | | | [place] [address] | + + + LACTATE (09/01/2017 4:19 PM) + +-------+ + | Component | Value | Ref Range | + +-------+ + | LACTATE | 1.6 | mmol/L | + +-------+ + + + + | Specimen | Performing Laboratory | + + + | Blood | [facility], CORE [address] [place] [address] | | | [place] [address] | + + + + + | [...] | + + + | Blood | [facility], CORE [address] | | | [place] [address] | + + + COMPLETE METABOLIC SET [...] | >60 | >60 mL/min | | ICELANDIC | | | + + + + | EGFR NON | >60 | >60 mL/min | | -ICELANDIC | | | + + + + [...] | + + + | Blood | [facility] [address] | | | [place] [address] | + + + + + | [...] | | ------ CBC (HEMOGRAM) | | ONLY[[id number]] Abnormal Final | | result Please view [...] | + + + | Blood | [facility], [facility] [address] [place] [address] | | | [place] [address] | + + + + + | [...] | + + + | Blood | [facility], [facility] [address] | | | [place] [address] | + + + + + | Narrative | + + | Cap came off in bag before received. Sample rejected due to air contamination. | | Crediting patient. | + + IR EMBOLIZATION OTHER (09/01/2017 2:06 PM) + + + | Specimen | Performing Laboratory | + + + | | [facility] VOICE RECOGNITION | + + [...] micropuncture access set was exchanged for a Koa.la | | wire. Under fluoroscopic guidance, a 5 Fr flush catheter was used to evaluate the | | distal abdominal aorta and pelvic vasculature. A wire and catheter were then used to | | select the left common and internal iliac arteries from the right MAIL CARRIER approach. DSA | | was performed from [...] micropuncture access set was exchanged for a L2son wire. Under fluoroscopic guidance, | | a 5 Fr flush catheter was used to evaluate the distal abdominal aorta and pelvic | | vasculature. A wire and catheter were then used to select the left common and internal | | iliac arteries from the right MAIL CARRIER approach. DSA was performed from the left [...] micropuncture access set was exchanged for a Koa.la wire. Under fluoroscopic guidance, a 5 Fr flush catheter was used | |to evaluate the distal abdominal aorta and pelvic vasculature. A wire and catheter were th en used to select the left common and internal iliac arteries from the right MAIL CARRIER approach. DSA was performed from the left [...] | + + + | Blood | [facility], POINT OF CARE TESTS [address] | | | [place] [address] | + + + EXPLORATORY LAPAROTOMY (09/01/2017 12:31 PM) + + | Narrative | + + | Fidelina Shields MD 09/01/2017 12:42 PM BRIEF OPERATIVE NOTE: | | Date: 09/01/2017 Author: Fidelina Shields MD Attending Physician: | | Fidelina Shields MD Clinical Courier(s): Haim Peralta MD, Vicente Garcia MD, Glo [...] the case. | | Fidelina Shields MD Neurology Physician Division of Trauma, Critical Care and | | Acute Care Surgery Office: [phone] Pager: [phone] | + + ABG-FULL ABL, POC (09/01/2017 [...] [address] | | | [place] [address] | + + + CREATININE, BODY FLUID (09/01/2017 11:52 AM) + +-------+ + | Component | Value | Ref Range | + +-------+ + | CREATININE BODY | 0.60 | mg/dL | | FLUID | | | + +-------+ + + + + | Specimen | Performing Laboratory | + + + | Fluid - Abdominal | [facility], CORE [address] | | | [place] [address] | + + + + + | [...] | + + + | Blood | [facility], POINT OF CARE TESTS [address] | | | [place] [address] | + + + PRODUCT - PLATELET PHERESIS LEUKOREDUCED (09/01/2017 9:56 AM) + + + + | Component | Value | Ref Range | + + + + | PRODUCT DESCRIPTION | PLATELETS PHERESIS LEUKOCYTES REDUCED | | + + + + | PRODUCT UNIT # | [id number] | | + + + + | UNIT ABO | A | | + + + + | UNIT RH | POS | | + + + + | STATUS OF UNIT | Returned to Blood Bank | | + + + + | EXPIRATION DATE | [id number] | | + + + + | BLOOD TYPE BARCODE | 6200 | | + + + + | BLOOD PRODUCT CODE | [id number] | | + + + + + + + | Specimen | Performing Laboratory | + + + | | [facility], TRANSFUSION MEDICINE [address] | | | [place] [address] | + + + PRODUCT - FRESH FROZEN PLASMA (09/01/2017 9:53 AM) + + + + | Component | Value | Ref Range | + + + + | PRODUCT DESCRIPTION | LIQUID PLASMA, IRRADIATED | | + + + + | PRODUCT UNIT # | [id number] | | + + + + | UNIT ABO | A | | + + + + | UNIT RH | POS | | + + + + | STATUS OF UNIT | Returned to Blood Bank | | + + + + | EXPIRATION DATE | [id number] | | + + + + | BLOOD TYPE BARCODE | 6200 | | + + + + | BLOOD PRODUCT CODE | [id number] | | + + + + + + + | Specimen | Performing Laboratory | + + + | | [facility], TRANSFUSION MEDICINE [address] | | | [place] [address] | + + + PRODUCT - FRESH FROZEN PLASMA (09/01/2017 9:53 AM) + + + + | Component | Value | Ref Range | + + + + | PRODUCT DESCRIPTION | LIQUID PLASMA, IRRADIATED | | + + + + | PRODUCT UNIT # | [id number] | | + + + + | UNIT ABO | A | | + + + + | UNIT RH | POS | | + + + + | STATUS OF UNIT | Returned to Blood Bank | | + + + + | EXPIRATION DATE | [id number] | | + + + + | BLOOD TYPE BARCODE | 6200 | | + + + + | BLOOD PRODUCT CODE | [id number] | | + + + + + + + | Specimen | Performing Laboratory | + + + | | [facility], TRANSFUSION MEDICINE [address] | | | [place] [address] | + + + PRODUCT - RED CELLS LEUKOREDUCED (09/01/2017 9:49 AM) + + + + | Component | Value | Ref Range | + + + + | PRODUCT DESCRIPTION | -3 RED BLOOD CELLS ADENINE-SALINE ADDED | | | | LEUKOCY | | + + + + | PRODUCT UNIT # | [id number] | | + + + + | UNIT ABO | O | | + + + + | UNIT RH | POS | | + + + + | STATUS OF UNIT | Returned to Blood Bank | | + + + + | EXPIRATION DATE | [id number] | | + + + + | BLOOD TYPE BARCODE | 5100 | | + + + + | BLOOD PRODUCT CODE | [id number] | | + + + + + + + | Specimen | Performing Laboratory | + + + | | [facility], TRANSFUSION MEDICINE [address] [place] [address] | | | [place] [address] | + + + PRODUCT - RED CELLS LEUKOREDUCED (09/01/2017 9:49 AM) + + + + | Component | Value | Ref Range | + + + + | PRODUCT DESCRIPTION | -3 RED BLOOD CELLS ADENINE-SALINE ADDED | | | | LEUKOCY | | + + + + | PRODUCT UNIT # | [id number] | | + + + + | UNIT ABO | O | | + + + + | UNIT RH | POS | | + + + + | STATUS OF UNIT | Returned to Blood Bank | | + + + + | EXPIRATION DATE | [id number] | | + + + + | BLOOD TYPE BARCODE | 5100 | | + + + + | BLOOD PRODUCT CODE | [id number] | | + + + + + + + | Specimen | Performing Laboratory | + + + | | [facility], TRANSFUSION MEDICINE [address] [facility] | | | [place] [address] | + + + PRODUCT - RED CELLS LEUKOREDUCED (09/01/2017 9:49 AM) + + + + | Component | Value | Ref Range | + + + + | PRODUCT DESCRIPTION | -1 RED BLOOD CELL ADENINE-SALINE ADDED | | | | LEUKOCYTE | | + + + + | PRODUCT UNIT # | [id number] | | + + + + | UNIT ABO | O | | + + + + | UNIT RH | POS | | + + + + | STATUS OF UNIT | Returned to Blood Bank | | + + + + | EXPIRATION DATE | [id number] | | + + + + | BLOOD TYPE BARCODE | 5100 | | + + + + | BLOOD PRODUCT CODE | [id number] | | + + + + + + + | Specimen | Performing Laboratory | + + + | | [facility], TRANSFUSION MEDICINE [address] | | | [place] [address] | + + + PRODUCT - RED CELLS LEUKOREDUCED (09/01/2017 9:49 AM) + + + + | Component | Value | Ref Range | + + + + | PRODUCT DESCRIPTION | -1 RED BLOOD CELL ADENINE-SALINE ADDED | | | | LEUKOCYTE | | + + + + | PRODUCT UNIT # | [id number] | | + + + + | UNIT ABO | O | | + + + + | UNIT RH | POS | | + + + + | STATUS OF UNIT | Returned to Blood Bank | | + + + + | EXPIRATION DATE | [id number] | | + + + + | BLOOD TYPE BARCODE | 5100 | | + + + + | BLOOD PRODUCT CODE | [id number] | | + + + + + + + | Specimen | Performing Laboratory | + + + | | [facility], TRANSFUSION MEDICINE [address] [place] [address] | | | [place] [address] | + + + PRODUCT - RED CELLS LEUKOREDUCED (09/01/2017 9:49 AM) + + + + | Component | Value | Ref Range | + + + + | PRODUCT DESCRIPTION | -1 RED BLOOD CELL ADENINE-SALINE ADDED | | | | LEUKOCYTE | | + + + + | PRODUCT UNIT # | [id number] | | + + + + | UNIT ABO | O | | + + + + | UNIT RH | POS | | + + + + | STATUS OF UNIT | Returned to Blood Bank | | + + + + | EXPIRATION DATE | [id number] | | + + + + | BLOOD TYPE BARCODE | 5100 | | + + + + | BLOOD PRODUCT CODE | [id number] | | + + + + + + + | Specimen | Performing Laboratory | + + + | | [facility], TRANSFUSION MEDICINE [address] [facility] | | | [place] [address] | + + + PRODUCT - RED CELLS LEUKOREDUCED (09/01/2017 9:49 AM) + + + + | Component | Value | Ref Range | + + + + | PRODUCT DESCRIPTION | -1 RED BLOOD CELL ADENINE-SALINE ADDED | | | | LEUKOCYTE | | + + + + | PRODUCT UNIT # | [id number] | | + + + + | UNIT ABO | O | | + + + + | UNIT RH | POS | | + + + + | STATUS OF UNIT | Returned to Blood Bank | | + + + + | EXPIRATION DATE | [id number] | | + + + + | BLOOD TYPE BARCODE | 5100 | | + + + + | BLOOD PRODUCT CODE | [id number] | | + + + + + + + | Specimen | Performing Laboratory | + + + | | [facility], TRANSFUSION MEDICINE [address] | | | [place] [address] | + + + PRODUCT - FRESH FROZEN PLASMA (09/01/2017 9:46 AM) + + + + | Component | Value | Ref Range | + + + + | PRODUCT DESCRIPTION | PLASMA THAWED | | + + + + | PRODUCT UNIT # | [id number] | | + + + + | UNIT ABO | B | | + + + + | UNIT RH | POS | | + + + + | STATUS OF UNIT | Returned to Blood Bank | | + + + + | EXPIRATION DATE | [id number] | | + + + + | BLOOD TYPE BARCODE | 7300 | | + + + + | BLOOD PRODUCT CODE | [id number] | | + + + + + + + | Specimen | Performing Laboratory | + + + | | [facility], TRANSFUSION MEDICINE [address] | | | [place] [address] | + + + PRODUCT - FRESH FROZEN PLASMA (09/01/2017 9:46 AM) + + + + | Component | Value | Ref Range | + + + + | PRODUCT DESCRIPTION | PLASMA THAWED | | + + + + | PRODUCT UNIT # | [id number] | | + + + + | UNIT ABO | B | | + + + + | UNIT RH | POS | | + + + + | STATUS OF UNIT | Returned to Blood Bank | | + + + + | EXPIRATION DATE | [id number] | | + + + + | BLOOD TYPE BARCODE | 7300 | | + + + + | BLOOD PRODUCT CODE | [id number] | | + + + + + + + | Specimen | Performing Laboratory | + + + | | [facility], TRANSFUSION MEDICINE [address] | | | [place] [address] | + + + PRODUCT - FRESH FROZEN PLASMA (09/01/2017 9:46 AM) + + + + | Component | Value | Ref Range | + + + + | PRODUCT DESCRIPTION | LIQUID PLASMA, IRRADIATED | | + + + + | PRODUCT UNIT # | [id number] | | + + + + | UNIT ABO | A | | + + + + | UNIT RH | POS | | + + + + | STATUS OF UNIT | Returned to Blood Bank | | + + + + | EXPIRATION DATE | [id number] | | + + + + | BLOOD TYPE BARCODE | 6200 | | + + + + | BLOOD PRODUCT CODE | [id number] | | + + + + + + + | Specimen | Performing Laboratory | + + + | | [facility], TRANSFUSION MEDICINE [address] | | | [place] [address] | + + + PRODUCT - FRESH FROZEN PLASMA (09/01/2017 9:46 AM) + + + + | Component | Value | Ref Range | + + + + | PRODUCT DESCRIPTION | LIQUID PLASMA, IRRADIATED | | + + + + | PRODUCT UNIT # | [id number] | | + + + + | UNIT ABO | A | | + + + + | UNIT RH | POS | | + + + + | STATUS OF UNIT | Returned to Blood Bank | | + + + + | EXPIRATION DATE | [id number] | | + + + + | BLOOD TYPE BARCODE | 6200 | | + + + + | BLOOD PRODUCT CODE | [id number] | | + + + + + + + | Specimen | Performing Laboratory | + + + | | [facility], TRANSFUSION MEDICINE [address] | | | [place] [address] | + + + PRODUCT - FRESH FROZEN PLASMA (09/01/2017 9:46 AM) + + + + | Component | Value | Ref Range | + + + + | PRODUCT DESCRIPTION | LIQUID PLASMA, IRRADIATED | | + + + + | PRODUCT UNIT # | [id number] | | + + + + | UNIT ABO | A | | + + + + | UNIT RH | POS | | + + + + | STATUS OF UNIT | Returned to Blood Bank | | + + + + | EXPIRATION DATE | [id number] | | + + + + | BLOOD TYPE BARCODE | 6200 | | + + + + | BLOOD PRODUCT CODE | [id number] | | + + + + + + + | Specimen | Performing Laboratory | + + + | | [facility], TRANSFUSION MEDICINE [address] | | | [place] [address] | + + + PRODUCT - FRESH FROZEN PLASMA (09/01/2017 9:46 AM) + + + + | Component | Value | Ref Range | + + + + | PRODUCT DESCRIPTION | LIQUID PLASMA, IRRADIATED | | + + + + | PRODUCT UNIT # | [id number] | | + + + + | UNIT ABO | A | | + + + + | UNIT RH | POS | | + + + + | STATUS OF UNIT | Returned to Blood Bank | | + + + + | EXPIRATION DATE | [id number] | | + + + + | BLOOD TYPE BARCODE | 6200 | | + + + + | BLOOD PRODUCT CODE | [id number] | | + + + + + + + | Specimen | Performing Laboratory | + + + | | [facility], TRANSFUSION MEDICINE [address] | | | [place] [address] | + + + PRODUCT - PLATELET PHERESIS LEUKOREDUCED (09/01/2017 9:43 AM) + + + + | Component | Value | Ref Range | + + + + | PRODUCT DESCRIPTION | PLATELETS PHERESIS LEUKOCYTE REDUCED | | + + + + | PRODUCT UNIT # | [id number] | | + + + + | UNIT ABO | A | | + + + + | UNIT RH | POS | | + + + + | STATUS OF UNIT | Presumed Transfused | | + + + + | EXPIRATION DATE | [id number] | | + + + + | BLOOD TYPE BARCODE | 6200 | | + + + + | BLOOD PRODUCT CODE | [id number] | | + + + + + + + | Specimen | Performing Laboratory | + + + | | [facility], TRANSFUSION MEDICINE [address] [facility] | | | [place] [address] | + + + PRODUCT - FRESH FROZEN PLASMA (09/01/2017 9:35 AM) + + + + | Component | Value | Ref Range | + + + + | PRODUCT DESCRIPTION | LIQUID PLASMA, IRRADIATED | | + + + + | PRODUCT UNIT # | [id number] | | + + + + | UNIT ABO | A | | + + + + | UNIT RH | NEG | | + + + + | STATUS OF UNIT | Presumed Transfused | | + + + + | EXPIRATION DATE | [id number] | | + + + + | BLOOD TYPE BARCODE | | | + + + + | BLOOD PRODUCT CODE | [id number] | | + + + + + + + | Specimen | Performing Laboratory | + + + | | [facility], TRANSFUSION MEDICINE [address] [facility] | | | [place] [address] | + + + PRODUCT - FRESH FROZEN PLASMA (09/01/2017 9:35 AM) + + + + | Component | Value | Ref Range | + + + + | PRODUCT DESCRIPTION | LIQUID PLASMA, IRRADIATED | | + + + + | PRODUCT UNIT # | [id number] | | + + + + | UNIT ABO | A | | + + + + | UNIT RH | NEG | | + + + + | STATUS OF UNIT | Returned to Blood Bank | | + + + + | EXPIRATION DATE | [id number] | | + + + + | BLOOD TYPE BARCODE | 0600 | | + + + + | BLOOD PRODUCT CODE | [id number] | | + + + + + + + | Specimen | Performing Laboratory | + + + | | [facility], TRANSFUSION MEDICINE [address] [facility] | | | [place] [address] | + + + PRODUCT - FRESH FROZEN PLASMA (09/01/2017 9:35 AM) + + + + | Component | Value | Ref Range | + + + + | PRODUCT DESCRIPTION | LIQUID PLASMA, IRRADIATED | | + + + + | PRODUCT UNIT # | [id number] | | + + + + | UNIT ABO | A | | + + + + | UNIT RH | POS | | + + + + | STATUS OF UNIT | Returned to Blood Bank | | + + + + | EXPIRATION DATE | [id number] | | + + + + | BLOOD TYPE BARCODE | 6200 | | + + + + | BLOOD PRODUCT CODE | [id number] | | + + + + + + + | Specimen | Performing Laboratory | + + + | | [facility], TRANSFUSION MEDICINE [address] [facility] | | | [place] [address] | + + + PRODUCT - FRESH FROZEN PLASMA (09/01/2017 9:35 AM) + + + + | Component | Value | Ref Range | + + + + | PRODUCT DESCRIPTION | LIQUID PLASMA, IRRADIATED | | + + + + | PRODUCT UNIT # | [id number] | | + + + + | UNIT ABO | A | | + + + + | UNIT RH | POS | | + + + + | STATUS OF UNIT | Presumed Transfused | | + + + + | EXPIRATION DATE | [id number] | | + + + + | BLOOD TYPE BARCODE | 6200 | | + + + + | BLOOD PRODUCT CODE | [id number] | | + + + + + + + | Specimen | Performing Laboratory | + + + | | [facility], TRANSFUSION MEDICINE [address] [facility] | | | [place] [address] | + + + PRODUCT - RED CELLS LEUKOREDUCED (09/01/2017 9:35 AM) + + + + | Component | Value | Ref Range | + + + + | PRODUCT DESCRIPTION | -1 RED BLOOD CELL ADENINE-SALINE ADDED | | | | LEUKOCYTE | | + + + + | PRODUCT UNIT # | [id number] | | + + + + | UNIT ABO | O | | + + + + | UNIT RH | POS | | + + + + | STATUS OF UNIT | Returned to Blood Bank | | + + + + | EXPIRATION DATE | [id number] | | + + + + | BLOOD TYPE BARCODE | 5100 | | + + + + | BLOOD PRODUCT CODE | [id number] | | + + + + + + + | Specimen | Performing Laboratory | + + + | | [facility], TRANSFUSION MEDICINE [address] [facility] | | | [place] [address] | + + + PRODUCT - RED CELLS LEUKOREDUCED (09/01/2017 9:35 AM) + + + + | Component | Value | Ref Range | + + + + | PRODUCT DESCRIPTION | -1 RED BLOOD CELL ADENINE-SALINE ADDED | | | | LEUKOCYTE | | + + + + | PRODUCT UNIT # | [id number] | | + + + + | UNIT ABO | O | | + + + + | UNIT RH | POS | | + + + + | STATUS OF UNIT | Returned to Blood Bank | | + + + + | EXPIRATION DATE | [id number] | | + + + + | BLOOD TYPE BARCODE | 5100 | | + + + + | BLOOD PRODUCT CODE | [id number] | | + + + + + + + | Specimen | Performing Laboratory | + + + | | [facility], TRANSFUSION MEDICINE [address] [facility] | | | [place] [address] | + + + PRODUCT - RED CELLS LEUKOREDUCED (09/01/2017 9:35 AM) + + + + | Component | Value | Ref Range | + + + + | PRODUCT DESCRIPTION | -1 RED BLOOD CELL ADENINE-SALINE ADDED | | | | LEUKOCYTE | | + + + + | PRODUCT UNIT # | [id number] | | + + + + | UNIT ABO | O | | + + + + | UNIT RH | POS | | + + + + | STATUS OF UNIT | Presumed Transfused | | + + + + | EXPIRATION DATE | [id number] | | + + + + | BLOOD TYPE BARCODE | 5100 | | + + + + | BLOOD PRODUCT CODE | [id number] | | + + + + + + + | Specimen | Performing Laboratory | + + + | | [facility], TRANSFUSION MEDICINE [address] [place] [address] | | | [place] [address] | + + + PRODUCT - RED CELLS LEUKOREDUCED (09/01/2017 9:35 AM) + + + + | Component | Value | Ref Range | + + + + | PRODUCT DESCRIPTION | -1 RED BLOOD CELL ADENINE-SALINE ADDED | | | | LEUKOCYTE | | + + + + | PRODUCT UNIT # | [id number] | | + + + + | UNIT ABO | O | | + + + + | UNIT RH | POS | | + + + + | STATUS OF UNIT | Presumed Transfused | | + + + + | EXPIRATION DATE | [id number] | | + + + + | BLOOD TYPE BARCODE | 5100 | | + + + + | BLOOD PRODUCT CODE | [id number] | | + + + + + + + | Specimen | Performing Laboratory | + + + | | [facility], TRANSFUSION MEDICINE [address] [facility] | | | [place] [address] | + + + PRODUCT - RED CELLS LEUKOREDUCED (09/01/2017 9:35 AM) + + + + | Component | Value | Ref Range | + + + + | PRODUCT DESCRIPTION | -1 RED BLOOD CELL ADENINE-SALINE ADDED | | | | LEUKOCYTE | | + + + + | PRODUCT UNIT # | [id number] | | + + + + | UNIT ABO | O | | + + + + | UNIT RH | POS | | + + + + | STATUS OF UNIT | Returned to Blood Bank | | + + + + | EXPIRATION DATE | [id number] | | + + + + | BLOOD TYPE BARCODE | 5100 | | + + + + | BLOOD PRODUCT CODE | [id number] | | + + + + + + + | Specimen | Performing Laboratory | + + + | | [facility], TRANSFUSION MEDICINE [address] [facility] | | | [place] [address] | + + + PRODUCT - RED CELLS LEUKOREDUCED (09/01/2017 9:35 AM) + + + + | Component | Value | Ref Range | + + + + | PRODUCT DESCRIPTION | -1 RED BLOOD CELL ADENINE-SALINE ADDED | | | | LEUKOCYTE | | + + + + | PRODUCT UNIT # | [id number] | | + + + + | UNIT ABO | O | | + + + + | UNIT RH | POS | | + + + + | STATUS OF UNIT | Presumed Transfused | | + + + + | EXPIRATION DATE | [id number] | | + + + + | BLOOD TYPE BARCODE | 5100 | | + + + + | BLOOD PRODUCT CODE | [id number] | | + + + + + + + | Specimen | Performing Laboratory | + + + | | [facility], TRANSFUSION MEDICINE [address] [place] [address] | | | [place] [address] | + + + CBC (HEMOGRAM) ONLY [...] | + + + | Blood | [facility], CORE [address] [place] [address] | | | [place], [place] [address] | + + + RENAL FUNCTION SET [...] | >60 | >60 mL/min | | ICELANDIC | | | + + + + | EGFR NON | >60 | >60 mL/min | | -ICELANDIC | | | + + + + [...] | + + + | Blood | [facility], [facility] [address] | | | [place] [address] | + + + + + | [...] | | ------ CBC (HEMOGRAM) | | ONLY[[id number]] Abnormal Final | | result Please view results for these tests on the | | individual orders. | + + LACTATE (09/01/2017 9:35 AM) + +-------+ + | Component | Value | Ref Range | + +-------+ + | LACTATE | 2.5 | mmol/L | + +-------+ + + + + | Specimen | Performing Laboratory | + + + | Blood | [facility], CORE [address] [place] [address] | | | [place] [address] | + + + + + | [...] + + | Blood | [facility] [address] | | | [place] [address] | + + + X-RAY PORTABLE CHEST 1 VIEW (09/01/2017 9:18 AM) + + + | Specimen | Performing Laboratory | + + + | | [facility] VOICE RECOGNITION | + + + + + | Narrative | + + | EXAM: OR CHEST 1 [...] Laboratory | + + + | | [facility] VOICE RECOGNITION | + + [...] Note | + + | Service Account, [employer] Res In Interface - 09/01/2017 1:40 PM [...] + + | PRODUCT UNIT # | [id number] | | + + + + | UNIT ABO | O | | + + + + | UNIT RH | POS | | + + + + | STATUS OF UNIT | Presumed Transfused | | + + + + | EXPIRATION DATE | [id number] | | + + + + | BLOOD TYPE BARCODE | 5100 | | + + + + | BLOOD PRODUCT CODE | [id number] | | + + + + + + + | Specimen | Performing Laboratory | + + + | | [facility], TRANSFUSION MEDICINE [address] | | | [place] [address] | + + + PRODUCT - RED CELLS LEUKOREDUCED (09/01/2017 9:08 AM) + + + + | Component | Value | Ref Range | + + + + | PRODUCT DESCRIPTION | -1 RED BLOOD CELL ADENINE-SALINE ADDED | | | | LEUKOCYTE | | + + + + | PRODUCT UNIT # | [id number] | | + + + + | UNIT ABO | O | | + + + + | UNIT RH | POS | | + + + + | STATUS OF UNIT | Presumed Transfused | | + + + + | EXPIRATION DATE | [id number] | | + + + + | BLOOD TYPE BARCODE | 5100 | | + + + + | BLOOD PRODUCT CODE | [id number] | | + + + + + + + | Specimen | Performing Laboratory | + + + | | [facility] TRANSFUSION MEDICINE [address] [facility] | | | [place] [address] | + + + PRODUCT - RED CELLS LEUKOREDUCED (09/01/2017 9:08 AM) + + + + | Component | Value | Ref Range | + + + + | PRODUCT DESCRIPTION | -1 RED BLOOD CELL ADENINE-SALINE ADDED | | | | LEUKOCYTE | | + + + + | PRODUCT UNIT # | [id number] | | + + + + | UNIT ABO | O | | + + + + | UNIT RH | POS | | + + + + | STATUS OF UNIT | Presumed Transfused | | + + + + | EXPIRATION DATE | [id number] | | + + + + | BLOOD TYPE BARCODE | 5100 | | + + + + | BLOOD PRODUCT CODE | [id number] | | + + + + + + + | Specimen | Performing Laboratory | + + + | | [facility] TRANSFUSION MEDICINE [address] [facility] | | | [place] [address] | + + + PRODUCT - RED CELLS LEUKOREDUCED (09/01/2017 9:08 AM) + + + + | Component | Value | Ref Range | + + + + | PRODUCT DESCRIPTION | -1 RED BLOOD CELL ADENINE-SALINE ADDED | | | | LEUKOCYTE | | + + + + | PRODUCT UNIT # | [id number] | | + + + + | UNIT ABO | O | | + + + + | UNIT RH | POS | | + + + + | STATUS OF UNIT | Presumed Transfused | | + + + + | EXPIRATION DATE | [id number] | | + + + + | BLOOD TYPE BARCODE | 5100 | | + + + + | BLOOD PRODUCT CODE | [id number] | | + + + + + + + | Specimen | Performing Laboratory | + + + | | [facility] TRANSFUSION MEDICINE [address] [facility] | | | [place] [address] | + + + PRODUCT - FRESH FROZEN PLASMA (09/01/2017 9:08 AM) + + + + | Component | Value | Ref Range | + + + + | PRODUCT DESCRIPTION | PLASMA THAWED | | + + + + | PRODUCT UNIT # | [id number] | | + + + + | UNIT ABO | B | | + + + + | UNIT RH | POS | | + + + + | STATUS OF UNIT | Presumed Transfused | | + + + + | EXPIRATION DATE | [id number] | | + + + + | BLOOD TYPE BARCODE | 7300 | | + + + + | BLOOD PRODUCT CODE | [id number] | | + + + + + + + | Specimen | Performing Laboratory | + + + | | [facility], TRANSFUSION MEDICINE [address] [facility] | | | [place] [address] | + + + PRODUCT - FRESH FROZEN PLASMA (09/01/2017 9:08 AM) + + + + | Component | Value | Ref Range | + + + + | PRODUCT DESCRIPTION | PLASMA THAWED | | + + + + | PRODUCT UNIT # | [id number] | | + + + + | UNIT ABO | B | | + + + + | UNIT RH | POS | | + + + + | STATUS OF UNIT | Presumed Transfused | | + + + + | EXPIRATION DATE | [id number] | | + + + + | BLOOD TYPE BARCODE | 7300 | | + + + + | BLOOD PRODUCT CODE | [id number] | | + + + + + + + | Specimen | Performing Laboratory | + + + | | [facility], TRANSFUSION MEDICINE [address] | | | [place] [address] | + + + PRODUCT - FRESH FROZEN PLASMA (09/01/2017 9:08 AM) + + + + | Component | Value | Ref Range | + + + + | PRODUCT DESCRIPTION | PLASMA THAWED | | + + + + | PRODUCT UNIT # | [id number] | | + + + + | UNIT ABO | B | | + + + + | UNIT RH | POS | | + + + + | STATUS OF UNIT | Presumed Transfused | | + + + + | EXPIRATION DATE | [id number] | | + + + + | BLOOD TYPE BARCODE | 7300 | | + + + + | BLOOD PRODUCT CODE | [id number] | | + + + + + + + | Specimen | Performing Laboratory | + + + | | [facility], TRANSFUSION MEDICINE [address] [place] [address] | | | [place] [address] | + + + PRODUCT - FRESH FROZEN PLASMA (09/01/2017 9:08 AM) + + + + | Component | Value | Ref Range | + + + + | PRODUCT DESCRIPTION | THAWED APHERESIS PLASMA | | + + + + | PRODUCT UNIT # | [id number] | | + + + + | UNIT ABO | B | | + + + + | UNIT RH | POS | | + + + + | STATUS OF UNIT | Presumed Transfused | | + + + + | EXPIRATION DATE | [id number] | | + + + + | BLOOD TYPE BARCODE | 7300 | | + + + + | BLOOD PRODUCT CODE | [id number] | | + + + + + + + | Specimen | Performing Laboratory | + + + | | [facility], [facility] MEDICINE [address] [place] [address] | | | [place] [address] | + + + CT HEAD WO CONTRAST (09/01/2017 8:42 AM) + + + | Specimen | Performing Laboratory | + + + | | [facility] VOICE RECOGNITION | + + [...] Note | + + | Service Account, Flightfox Res In Interface - 09/01/2017 9:01 AM [...] + + | PRODUCT UNIT # | [id number] | | + + + + | UNIT ABO | O | | + + + + | UNIT RH | POS | | + + + + | STATUS OF UNIT | Presumed Transfused | | + + + + | EXPIRATION DATE | [id number] | | + + + + | BLOOD TYPE BARCODE | 5100 | | + + + + | BLOOD PRODUCT CODE | [id number] | | + + + + + + + | Specimen | Performing Laboratory | + + + | | [facility], TRANSFUSION MEDICINE [address] [facility] | | | [place] [address] | + + + LACTATE (09/01/2017 5:29 AM) + +-------+ + | Component | Value | Ref Range | + +-------+ + | LACTATE | 1.2 | mmol/L | + +-------+ + + + + | Specimen | Performing Laboratory | + + + | Blood | [facility], CORE [address] [place] [address] | | | [place] [address] | + + + + + | [...] | + + + | Blood | [facility], CORE [address] [place] [address] [place] | | | [place] [address] | + + + MRI SPINE CERVICAL/THORACIC WO CONTRAST (09/01/2017 3:53 AM) + + + | Specimen | Performing Laboratory | + + + | | [facility] VOICE RECOGNITION | + + [...] | | injured. Discussed with trauma ICU event planning intern by Dr. Yang at 4:38 AM. [...] interspinous ligament is injured.Discussed with trauma ICU event planning intern | | by Dr. Yang at 4:38 AM.I have personally reviewed the images and, if necessary, | | edited the report. I agree with the report as now presented. | |3. Extensive soft tissue edema extending into the cervical and upper thoracic interspinous space, suggestive of interspinous ligament is injured. | | | |Discussed with trauma ICU event planning intern by Dr. Yang at 4:38 AM. [...] | >60 | >60 mL/min | | ICELANDIC | | | + +---------+ + | EGFR NON | >60 | >60 mL/min | | -ICELANDIC | | | + +---------+ + | [...] | + + + | Blood | [facility], CORE [address] [place] [address] | | | [place] [address] | + + + + + | [...] | + + + | Blood | [facility], CORE [address] [facility] | | | [place] [address] | + + + + + | [...] | + + + | Blood | [facility], CORE [address] [place] [address] | | | [place] [address] | + + + LACTATE (09/01/2017 1:32 AM) + +-------+ + | Component | Value | Ref Range | + +-------+ + | LACTATE | 1.4 | mmol/L | + +-------+ + + + + | Specimen | Performing Laboratory | + + + | Blood | [facility], CORE [address] [facility] | | | [place] [address] | + + + + + | [...] | | ------ CBC (HEMOGRAM) | | ONLY[[id number]] Abnormal Final | | result Please view [...] pleural spaced was performed. A 32 size Bermudian chest tube was placed into the | [...] Laboratory | + + + | | [facility] VOICE RECOGNITION | + + + [...] | ventricles. Discussed with the trauma ICU event planning intern at 12:[address] Yang. [...] ventricles.Discussed with | | the trauma ICU event planning intern at 12:[address] Yang.I [...] | | |Discussed with the trauma ICU event planning intern at 12:[address] Yang. | | | | | |I have personally reviewed the images and, if necessary, edited the report. I agree with t he report as now presented. | + + PROCEDURE NOTE (09/01/2017 12:47 AM) + + + | Specimen | Performing Laboratory | + + + | | [facility] PO[facility] TESTS [address] | | | [place] [address] | + + + + + | [...] | + + + | Blood | [facility], CORE [address] [facility] | | | [place], [place] [address] | + + + LACTATE (08/31/2017 9:19 PM) + +-------+ + | Component | Value | Ref Range | + +-------+ + | LACTATE | 2.2 | mmol/L | + +-------+ + + + + | Specimen | Performing Laboratory | + + + | Blood | [facility], CORE [address] [facility] | | | [place] [address] | + + + + + | [...] Laboratory | + + + | | [facility] VOICE RECOGNITION | + + [...] Laboratory | + + + | | [facility] VOICE RECOGNITION | + + [...] Note | + + | Service Account, RadiFastgen Res In Interface - 09/01/2017 1:50 PM [...] Laboratory | + + + | | [facility] VOICE RECOGNITION | + + [...] Note | + + | Service Account, Flightfox Res In Interface - 09/01/2017 1:50 PM [...] | + + + | Blood | [facility], CORE [address] [facility] | | | [place] [address] | + + + X-RAY PORTABLE CHEST 1 VIEW (08/31/2017 7:07 PM) + + + | Specimen | Performing Laboratory | + + + | | [facility] VOICE RECOGNITION | + + + + + | Narrative | + + | STUDY: OR CHEST 1 [...] | + + + | Blood | [facility], CORE [address] [facility] | | | [place] [address] | + + + CTA NECK W CONTRAST (08/31/2017 6:27 PM) + + + | Specimen | Performing Laboratory | + + + | | [facility] VOICE RECOGNITION | + + [...] Note | + + | Service Account, Tagged In Interface - 08/31/2017 8:22 PM PDT [...] Laboratory | + + + | | [facility] VOICE RECOGNITION | + + [...] rib, nondisplaced-Left | | 1st rib fracture, nsdhmcnsqmky-Xdf-fhwgfzcge left lateral 8th rib fracture-T12 fracture | [...] | | |Initial findings discussed with Dr. Sahw by Dr. Madrigal at 7:10 pm on [...] Laboratory | + + + | | [facility] VOICE RECOGNITION | + + [...] | + + + | Blood | [facility], TRANSFUSION MEDICINE [address] [facility] | | | [place] [address] | + + + ABO & RH [...] | + + + | Blood | [facility], TRANSFUSION MEDICINE [address] [facility] | | | [place] [address] | + + + TYPE AND SCREEN [...] | ------ ABO & RH | | TYPE[[id number]] F | | inal result ANTIBODY | | SCREEN[[id number]] Fin | | al result Please view [...] | + + + | Blood | [facility], TRANSFUSION MEDICINE [address] [facility] | | | [place] [address] | + + + THROMBELASTOGRAPH, POC (08/31/2017 [...] + + + | Blood | [facility] TESTS [address] | | | [place] [address] | + + + + + | [...] [address] | | | [place] [address] | + + + + + | [...] Laboratory | + + + | | [facility] POINT [facility] CARE TESTS [address] | | | [place] [address] | + + + ED BG-LAC,POC (08/31/2017 [...] TESTS [address] | | | [place] [address] | + + + PRODUCT - RED CELLS LEUKOREDUCED (08/31/2017 5:06 PM) + + + + | Component | Value | Ref Range | + + + + | PRODUCT DESCRIPTION | -1 RED BLOOD CELL ADENINE-SALINE ADDED | | | | LEUKOCYTE | | + + + + | PRODUCT UNIT # | [id number] | | + + + + | UNIT ABO | O | | + + + + | UNIT RH | POS | | + + + + | STATUS OF UNIT | Returned to Blood Bank | | + + + + | EXPIRATION DATE | [id number] | | + + + + | BLOOD TYPE BARCODE | 5100 | | + + + + | BLOOD PRODUCT CODE | [id number] | | + + + + + + + | Specimen | Performing Laboratory | + + + | | [facility], TRANSFUSION MEDICINE [address] [facility] | | | [place] [address] | + + + PRODUCT - RED CELLS LEUKOREDUCED (08/31/2017 5:06 PM) + + + + | Component | Value | Ref Range | + + + + | PRODUCT DESCRIPTION | -1 RED BLOOD CELL ADENINE-SALINE ADDED | | | | LEUKOCYTE | | + + + + | PRODUCT UNIT # | [id number] | | + + + + | UNIT ABO | O | | + + + + | UNIT RH | POS | | + + + + | STATUS OF UNIT | Presumed Transfused | | + + + + | EXPIRATION DATE | [id number] | | + + + + | BLOOD TYPE BARCODE | 5100 | | + + + + | BLOOD PRODUCT CODE | [id number] | | + + + + + + + | Specimen | Performing Laboratory | + + + | | [facility], TRANSFUSION MEDICINE [address] | | | [place] [address] | + + + PRODUCT - RED CELLS LEUKOREDUCED (08/31/2017 5:06 PM) + + + + | Component | Value | Ref Range | + + + + | PRODUCT DESCRIPTION | -1 RED BLOOD CELL ADENINE-SALINE ADDED | | | | LEUKOCYTE | | + + + + | PRODUCT UNIT # | [id number] | | + + + + | UNIT ABO | O | | + + + + | UNIT RH | POS | | + + + + | STATUS OF UNIT | Returned to Blood Bank | | + + + + | EXPIRATION DATE | [id number] | | + + + + | BLOOD TYPE BARCODE | 5100 | | + + + + | BLOOD PRODUCT CODE | [id number] | | + + + + + + + | Specimen | Performing Laboratory | + + + | | [facility], TRANSFUSION MEDICINE [address] [facility] | | | [place] [address] | + + + PRODUCT - RED CELLS LEUKOREDUCED (08/31/2017 5:06 PM) + + + + | Component | Value | Ref Range | + + + + | PRODUCT DESCRIPTION | -1 RED BLOOD CELL ADENINE-SALINE ADDED | | | | LEUKOCYTE | | + + + + | PRODUCT UNIT # | [id number] | | + + + + | UNIT ABO | O | | + + + + | UNIT RH | POS | | + + + + | STATUS OF UNIT | Presumed Transfused | | + + + + | EXPIRATION DATE | [id number] | | + + + + | BLOOD TYPE BARCODE | 5100 | | + + + + | BLOOD PRODUCT CODE | [id number] | | + + + + + + + | Specimen | Performing Laboratory | + + + | | [facility], TRANSFUSION MEDICINE [address] [facility] | | | [place] [address] | + + + PRODUCT - FRESH FROZEN PLASMA (08/31/2017 5:05 PM) + + + + | Component | Value | Ref Range | + + + + | PRODUCT DESCRIPTION | LIQUID PLASMA, IRRADIATED | | + + + + | PRODUCT UNIT # | [id number] | | + + + + | UNIT ABO | A | | + + + + | UNIT RH | POS | | + + + + | STATUS OF UNIT | Presumed Transfused | | + + + + | EXPIRATION DATE | [id number] | | + + + + | BLOOD TYPE BARCODE | 6200 | | + + + + | BLOOD PRODUCT CODE | [id number] | | + + + + + + + | Specimen | Performing Laboratory | + + + | | [facility], TRANSFUSION MEDICINE [address] [facility] | | | [place] [address] | + + + PRODUCT - FRESH FROZEN PLASMA (08/31/2017 5:05 PM) + + + + | Component | Value | Ref Range | + + + + | PRODUCT DESCRIPTION | LIQUID PLASMA, IRRADIATED | | + + + + | PRODUCT UNIT # | [id number] | | + + + + | UNIT ABO | A | | + + + + | UNIT RH | POS | | + + + + | STATUS OF UNIT | Presumed Transfused | | + + + + | EXPIRATION DATE | [id number] | | + + + + | BLOOD TYPE BARCODE | 6200 | | + + + + | BLOOD PRODUCT CODE | [id number] | | + + + + + + + | Specimen | Performing Laboratory | + + + | | [facility], TRANSFUSION MEDICINE [address] [facility] | | | [place] [address] | + + + PRODUCT - FRESH FROZEN PLASMA (08/31/2017 5:05 PM) + + + + | Component | Value | Ref Range | + + + + | PRODUCT DESCRIPTION | LIQUID PLASMA, IRRADIATED | | + + + + | PRODUCT UNIT # | [id number] | | + + + + | UNIT ABO | A | | + + + + | UNIT RH | POS | | + + + + | STATUS OF UNIT | Returned to Blood Bank | | + + + + | EXPIRATION DATE | [id number] | | + + + + | BLOOD TYPE BARCODE | 6200 | | + + + + | BLOOD PRODUCT CODE | [id number] | | + + + + + + + | Specimen | Performing Laboratory | + + + | | [facility], TRANSFUSION MEDICINE [address] [facility] | | | [place] [address] | + + + PRODUCT - FRESH FROZEN PLASMA (08/31/2017 5:05 PM) + + + + | Component | Value | Ref Range | + + + + | PRODUCT DESCRIPTION | LIQUID PLASMA, IRRADIATED | | + + + + | PRODUCT UNIT # | [id number] | | + + + + | UNIT ABO | A | | + + + + | UNIT RH | POS | | + + + + | STATUS OF UNIT | Returned to Blood Bank | | + + + + | EXPIRATION DATE | [id number] | | + + + + | BLOOD TYPE BARCODE | 6200 | | + + + + | BLOOD PRODUCT CODE | [id number] | | + + + + + + + | Specimen | Performing Laboratory | + + + | | [facility], TRANSFUSION MEDICINE [address] [facility] | | | [place] [address] | + + + CBC (HEMOGRAM) ONLY [...] | + + + | Blood | [facility], CORE [address] | | | [place] [address] | + + + BASIC METABOLIC SET [...] | >60 | >60 mL/min | | ICELANDIC | | | + +---------+ + | EGFR NON | >60 | >60 mL/min | | -ICELANDIC | | | + +---------+ + | [...] | + + + | Blood | [facility], CORE [address] | | | [place] [address] | + + + + + | [...] | + + + | Blood | [facility], CORE [address] [facility] | | | [place] [address] | + + + + + | [...] | | ------ CBC (HEMOGRAM) | | ONLY[[id number]] Abnormal Final | | result Please view [...] | + + + | Blood | [facility], CORE [address] [facility] | | | [place] [address] | + + + PHOSPHORUS, PLASMA (08/31/2017 4:50 PM) + +-------+ + | Component | Value | Ref Range | + +-------+ + | PHOSPHORUS, PLASMA | 4.0 | 2.4 - 4.7 mg/dL | | (LAB) | | | + +-------+ + + + + | Specimen | Performing Laboratory | + + + | Blood | [facility], CORE [address] [place] [address] | | | [place] [address] | + + + MAGNESIUM, PLASMA (08/31/2017 4:50 PM) + +---------+ + | Component | Value | Ref Range | + +---------+ + | MAGNESIUM,PLASMA | 1.5 (L) | 1.6 - 2.6 mg/dL | + +---------+ + + + + | Specimen | Performing Laboratory | + + + | Blood | [facility], CORE [address] | | | [facility] [place] [address] | + + + + + | [...] | | | | | | Until [facility] 09/05/17 at 0727 | | | [...] | | | | | NEEDED, Starting [facility] 09/19/17 at | | | | [...] 15:51 | | | | | dose, [facility] 10/10/17 at 1600 | | PDT [...] | | | DAILY, First dose on [facility] 09/19/17 | | PDT | | [...] mg | | | | dose, Starting [facility] 10/10/17 at | | 8 02:25 | | | | | 0158, Until [facility] 10/10/17 at 0225 | | PDT [...] | | | | ONCE, 1 dose, [facility] 09/05/17 at 0615 | | PDT [...] | | | | ONCE, 1 dose, [facility] 09/22/17 at 1000 | | PDT | [...] | | | | ONCE, 1 dose, [facility] 09/01/17 at 0915 | | PDT | | | | + +---------+ +-----+ +---+ +---+---+ | | | +---+---+ + +---------+ +-----+---+---+ | magnesium sulfate in water IV | New Bag | 09/02/2017 | 4 g | | | | (RTU) 4 g 4 g, intravenous, | | 01:14 | | | | | ONCE, 1 dose, [facility] 09/02/17 at 0115 | | PDT | [...] | Ventrogl | | ONCE, 1 dose, [facility] 09/12/17 at 1130 | | PDT [...] | | | tube, ONCE, 1 dose, [facility] 10/10/17 | | PDT | | [...] | tube, ONCE, 1 dose, [facility] 10/11/17 | | PDT | | | | | at 0245 | | | | | | + +-------+ +--------+---+---+ +---+---+ | | | +---+---+ + +-------+ +--------+---+---+ | potassium chloride (KLOR-CON) | Given | | 40 mEq | | | | packet 40 mEq 40 mEq, feeding | | 8 13:18 | | | | | tube, ONCE, 1 dose, [facility] 10/13/17 | | PDT | | | [...] | | | doses, First dose on [facility] 09/12/17 | | | | | | | at 0815, Last dose on [facility] 09/12/17 | | | | | [...] | | | 11/23/17 at 1512, Until [facility] | | | | | | | [...] | | | 11/24/17 at 1600, Until [facility] 11/28/17 | | | | | [...] | | | DAILY, First dose on [facility] 11/28/17 | | PDT | | [...] | | | | | NEEDED, Starting [facility] 11/28/17 at | | PDT | [...] | | | | | 1 dose, [facility] 10/10/17 at 1400 | | PDT [...]
--- OUTSIDE RECORDS SUMMARY | ~2017-12-10 | XMS | Encounter Summary ---
Demographics + + + | Address | [address] | | | [place] [address] | + + + | Home Phone [...] | Author | [facility] [employer] [facility] | + + + | Organization | [facility] [address] [employer] [facility] | + + + | Address | Unknown | + + + | Phone | Unavailable | + + + Support + + +---------+ + | Name | Relationship | Address | Phone | + + +---------+ + | Kaylie Baig | ECON | Unknown | | + + +---------+ + Care Team Providers + +------+ + | Care Tin Whiz Machine Operator Name | Role | Phone [...] | | | | [id number] [facility] | | | | | | [facility], | | | | | | [place] [address] | | | | | | [phone] | | | +--------+ + + + [...]
--- OUTSIDE RECORDS SUMMARY | ~2017-12-10 | XMS | Encounter Summary ---
Demographics + + + | Address | [address] | | | [place] [address] | + + + | Home Phone [...] + | Author | [facility] [employer] [facility] | + + + | Organization | [facility] [employer] [facility] [...] Team Providers + +------+ + | Care Collective Bargaining Specialist Name | Role | Phone | [...] | | | | | floor [address] [facility] | | | | | | [facility] | | | | | | [place], [place] | | | | | | [address] | | | +--------+ + + + [...]
--- OUTSIDE RECORDS SUMMARY | ~2017-12-10 | XMS | Encounter Summary ---
Demographics + + + | Address | [address] | | | [place] [address] | + + + | Home Phone [...] | Author | [facility] [address] [facility] | + + + | Organization | [facility] [employer] [facility] | + + + | Address | Unknown | + + + | Phone | Unavailable | + + + Support + + +---------+ + | Name | Relationship | Address | Phone | + + +---------+ + | Kaylie Baig | ECON | Unknown | | + + +---------+ + Care Team Providers + +------+ + | Care Hypo Dipper Name | Role | Phone | + [...] | | | 2017 | Event | [facility] | POUNCING MACHINE OPERATOR [address] [facility] | | | | | Admitting Desk | [facility] | | | | | Located on the 9 | [place], [place] | | | | | floor [address] [place] [address] | [address] | | | | | [facility] | [phone] | | | | | [place], [place] | | | | | | [address] | | | +--------+ + + + [...] centrally accessed); | | | | | [id number]; 10/22/17; 1542; | | | | | [...] feeding tube; | Camille Harris RN | Abeab Mack RN | | | Right Nare; [...]
[2017-12-10] MEDS ORDERED: ACETAMINOP160 MG/51 PO (17:11)
[2017-12-10] MEDS ORDERED: HALOPERIDOL2 MG/1 ML PO (17:12)
[2017-12-10] MEDS ORDERED: DEPAKENE250 MG/5 M PO (17:13)
--- NOTE | 2017-12-10 20:32 | EKG ---
[facility] [address] [place], [place] [address] Signed Normal sinus rhythm Right bundle branch block Abnormal ECG When compared with ECG of 09-AUG-2017 19:50, No significant change was found Confirmed by DESHAWN EMANUEL MD ([id number]) on 12/10/2017 8:32:03 PM Electronically Signed By: DSEHAWN EMAUNEL MD 12/10/172031 PATIENT NAME: PETERARTEMIO Electrocardiogram DATE OF : 64 PHYSICIAN: DESHAWN EMANUEL MD REPORT #: [id number] REPORT IS CONFIDENTIAL AND NOT TO BE RELEASED WITHOUT AUTHORIZATION
== END 2017-12-10 18:18 | disposition home or self-care (01) ==
LOC: ED 16:46
DX: R41.82 Altered mental status, unspecified (principal); Z79.899 Other long term (current) drug therapy
CPT/HCPCS: 70450; 71045; 80053; 84484; 85025; 85610; 85730; 93005; 93010; 99285

== ENCOUNTER 2017-12-30 08:45 | Emergency (ER) | payer OTHER ==
[~2017-12-30] VITALS: Ht 172.7 cm; Wt 63.0 kg
[~2017-12-30 08:45] MED LIST changes: +ACETAMINOP160 MG/51 PO; +DEPAKENE250 MG/5 M PO; +HALOPERIDOL2 MG/1 ML PO
[2017-12-30] MEDS ORDERED: MELATIN3 MG PO (08:57)
[2017-12-30] MEDS ORDERED: KEPPRA100 MG/1 M PO (08:57)
== END 2017-12-30 10:00 | disposition home or self-care (01) ==
LOC: ED 08:45
DX: R56.9 Unspecified convulsions (principal); E87.6 Hypokalemia; Z79.899 Other long term (current) drug therapy
CPT/HCPCS: 80048; 85025; 99285

== ENCOUNTER 2018-04-29 02:19 | Emergency (ER) | payer OTHER ==
[~2018-04-29] VITALS: Ht 172.7 cm; Wt 69.4 kg
[~2018-04-29 02:19] MED LIST changes: +KEPPRA100 MG/1 M PO; +MELATIN3 MG PO; +TRAZODONE HCL50 MG PO
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
[2018-04-29] MEDS ORDERED: LIDOCAINE PAIN1 EACH TP (02:43)
== END 2018-04-29 03:39 | disposition home or self-care (01) ==
LOC: ED 02:19
DX: G40.909 Epilepsy, unspecified, not intractable, without status epilepticus (principal); F17.200 Nicotine dependence, unspecified, uncomplicated; Z79.899 Other long term (current) drug therapy
CPT/HCPCS: 80053; 85025; 99285

== ENCOUNTER 2018-04-30 14:01 | Emergency (ER) | payer OTHER ==
[~2018-04-30] VITALS: Ht 172.7 cm; Wt 69.8 kg
[~2018-04-30 14:01] MED LIST changes: +LIDOCAINE PAIN1 EACH TP
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
== END 2018-04-30 16:25 | disposition home or self-care (01) ==
LOC: ED 14:01
DX: G40.909 Epilepsy, unspecified, not intractable, without status epilepticus (principal); R53.83 Other fatigue; Z79.899 Other long term (current) drug therapy
CPT/HCPCS: 36415; 80053; 80176; 85025; 99283; G0480

== ENCOUNTER 2018-05-08 05:36 | Emergency (ER) | payer OTHER ==
[~2018-05-08] VITALS: Ht 172.7 cm; Wt 69.8 kg
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
== END 2018-05-08 07:23 | disposition home or self-care (01) ==
LOC: ED 05:36
DX: Z46.59 Encounter for fitting and adjustment of other gastrointestinal appliance and device (principal); Z87.891 Personal history of nicotine dependence; Z79.899 Other long term (current) drug therapy
CPT/HCPCS: 43752; 74018; 99283-25

== ENCOUNTER 2018-05-22 18:57 | Emergency (ER) | payer OTHER ==
[~2018-05-22] VITALS: Ht 172.7 cm; Wt 69.8 kg
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
[2018-05-22] MEDS ORDERED: TRAZODONE HCL50 MG PO (19:29)
[2018-05-22] MEDS ORDERED: MELATIN3 MG PO (19:29)
== END 2018-05-22 19:35 | disposition home or self-care (01) ==
LOC: ED 18:57
DX: Z43.1 Encounter for attention to gastrostomy (principal); I69.954 Hemiplegia and hemiparesis following unspecified cerebrovascular disease affecting left non-dominant side; Z87.891 Personal history of nicotine dependence; Z79.899 Other long term (current) drug therapy
CPT/HCPCS: 99282

== ENCOUNTER 2018-06-05 15:21 | Emergency (ER) | payer OTHER ==
[~2018-06-05] VITALS: Ht 172.7 cm; Wt 69.8 kg
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
[2018-06-05] MEDS ORDERED: TRAZODONE HCL50 MG PO (17:42)
[2018-06-06] MEDS ORDERED: BENADRYL ALLERG25 MG PO (15:37)
== END 2018-06-05 18:19 | disposition home or self-care (01) ==
LOC: ED 15:21
DX: G40.909 Epilepsy, unspecified, not intractable, without status epilepticus (principal); Z87.891 Personal history of nicotine dependence; Z79.899 Other long term (current) drug therapy
CPT/HCPCS: 80048; 85025; 96374; 96375; 99284-25; J1953; J2060; J7060

== ENCOUNTER 2018-06-06 15:20 | Emergency (ER) | payer OTHER ==
[~2018-06-06] VITALS: Ht 172.7 cm; Wt 67.1 kg
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
[2018-06-06] MEDS ORDERED: BENADRYL ALLERG25 MG PO (15:37)
== END 2018-06-06 16:59 | disposition home or self-care (01) ==
LOC: ED 15:20
DX: R13.10 Dysphagia, unspecified (principal); R62.7 Adult failure to thrive; Z79.899 Other long term (current) drug therapy
CPT/HCPCS: 99283

== ENCOUNTER 2018-12-21 18:18 | Emergency (ER) | payer OTHER ==
[~2018-12-21] VITALS: Ht 172.7 cm; Wt 67.1 kg
[~2018-12-21 18:18] MED LIST changes: +BENADRYL ALLERG25 MG PO
--- OUTSIDE RECORDS SUMMARY | 2018-12-21 18:22 | XMS ---
PreManage Notification: ARTEMIO GREEN Security Rn Cardiac Rehab Events No recent Security Events currently on file CRITERIA MET - Group Notification - 6 ED Visits in 6 Months - [facility] - Has Care Guidelines - [facility] - 3 Facilities in 90 Days - [facility] - 2 Visits in 30 Days CARE PROVIDERS EMERY CARTY Physician Low Pressure Boiler Operator: Surgical 12/27/2017-Current PHONE: Unknown CAITIE Srinivasan Primary Care Current PHONE: [phone] Tara Chapin Primary Care Current Medical PHONE: Unknown Guidelines Source: [facility] Guidelines Date: 01/07/2018 Care Coordination: IF PATIENT RETURNS TO ED WITH SAFETY CONCERN :\T\nbsp; CALL AND REPORT TO [facility] ADULT PROTECTIVE SERVICES AT [phone]. Care History Medical/Surgical 04/01/2018 [facility] - PATIENT WAS LAST SEEN BY PCP [...] UP APT. - PATIENT CURRENT RN VAMSI SUPERVISOR PLATING AND POINT ASSEMBLY IS BRENT- CONTACT NUMBER [phone]. 12/25/2017 [facility] HISTORY:\T\nbsp; 09/13 - TRAUMA: TBI, MULTI-BROKEN BONES OTHER PAST HISTORY:\T\ nbsp; SEIZURES, BRAIN INFECTION Behavioral 12/25/2017 [facility] PATIENT HAS TBI HISTORY.\T\nbsp; DOES NOT SLEEP WELL.\T\nbsp; PATIENT VERY RESTLESS.\T\nbsp; PATIENT IS PRONE TO WANDER AWAY .\T\nbsp; E.D. VISIT [facility] (12 MO.) [facility] 14 [facility] 4 [facility] 10 [facility]. TOTAL 32 NOTE: Visits indicate total known visits. ED/UCC VISIT TRACKING (12 MO.) 12/21/2018 18:19 SHE[facility] [place] TYPE: Emergency COMPLAINT: - CAST REMOVAL [facility] COMPLAINT: - ETOH 11/25/2018 18:01 Donte ALEXANDER TYPE: Emergency COMPLAINT: - Ambulance 11/23/2018 [facility] 11/19/2018 19[facility] COMPLAINT: - seizure 11/10/2018 07:[facility] COMPLAINT: - HIP PAIN 11/03/2018 16:37 [facility] COMPLAINT: - back pain 10/31/2018 11:[facility] COMPLAINT: - hip 10/28/2018 12:54 [facility] COMPLAINT: - possible seizure 10/25/2018 11:21 [facility] COMPLAINT: - medical complaint 10/17/2018 15:[facility] COMPLAINT: - ETOH 10/16/2018 03:[facility] COMPLAINT: - possible sizure 10/14/2018 05:43 [facility] Emergency 10/11/2018 19:37 [facility] [place] TYPE: Emergency COMPLAINT: - intoxication 08/30/2018 11:19 [facility] Shazia Pacheco TYPE: Emergency COMPLAINT: - Unspecified convulsions DIAGNOSES: 1. Unspecified convulsions 1. Alcohol dependence with withdrawal delirium 2. Unspecified injury of head, initial encounter 3. Unspecified fracture of lower end of left ulna, initial encounter for closed fracture 4. Laceration without foreign body of scalp, initial encounter 5. Unspecified fall, initial encounter 6. Encounter for immunization 08/29/2018 22:53 [facility] Ayana ALEXANDER TYPE: Emergency COMPLAINT: - seizure 08/28/2018 12:33 [facility] Ayana ALEXANDER TYPE: Emergency COMPLAINT: - Intoxicated 08/28/2018 02:40 [facility] Ayana ALEXANDER TYPE: Emergency COMPLAINT: - medical clearence 08/24/2018 21:38 [facility] Ayana ALEXANDER TYPE: Emergency COMPLAINT: - post seizure 08/23/2018 21:[facility] COMPLAINT: - pain Plus 12 More Visits INPATIENT VISIT TRACKING (12 MO.) No inpatient visits to display in this time frame [email or web address]
== END 2018-12-21 21:21 | disposition home or self-care (01) ==
LOC: ED 18:18
DX: S52.502D Unspecified fracture of the lower end of left radius, subsequent encounter for closed fracture with routine healing (principal); S52.602D Unspecified fracture of lower end of left ulna, subsequent encounter for closed fracture with routine healing; F17.200 Nicotine dependence, unspecified, uncomplicated; Z86.73 Personal history of transient ischemic attack (TIA), and cerebral infarction without residual deficits; Z79.899 Other long term (current) drug therapy
CPT/HCPCS: 73090; 99283

== ENCOUNTER 2019-01-10 01:15 | Emergency (ER) | payer OTHER ==
[~2019-01-10] VITALS: Ht 172.7 cm; Wt 67.1 kg
--- OUTSIDE RECORDS SUMMARY | 2019-01-10 01:18 | XMS ---
PreManage Notification: ARTEMIO GREEN Security Flask Carrier Events No recent Security Events currently on file CRITERIA MET - Group Notification - 6 ED Visits in 6 Months - [facility] - Has Care Guidelines - [facility] - 3 Facilities in 90 Days - [facility] - 2 Visits in 30 Days CARE PROVIDERS EMERY FELIPE Physician Airborne Sensor Specialist: Surgical 12/27/2017-Current PHONE: Unknown CAITIE Srinivasan Primary Care Current PHONE: [phone] Tara Chapin Primary Care Current Medical PHONE: Unknown Guidelines Source: [facility] Guidelines Date: 01/07/2018 Care Coordination: IF PATIENT RETURNS TO ED WITH SAFETY CONCERN :\T\nbsp; CALL AND REPORT TO [facility] ADULT PROTECTIVE SERVICES AT [phone]. Care History Behavioral 12/25/2017 [facility] PATIENT HAS TBI HISTORY.\T\nbsp; DOES NOT SLEEP WELL.\T\nbsp; PATIENT VERY RESTLESS.\T\nbsp; PATIENT IS PRONE TO WANDER AWAY .\T\nbsp; Medical/Surgical 04/01/2018 [facility] - PATIENT WAS LAST SEEN BY [...] UP APT. - PATIENT CURRENT RN VAMSI CREATIVE MANAGER IS BRENT- CONTACT NUMBER [phone]. 12/25/2017 [facility] HISTORY:\T\nbsp; 09/13 - TRAUMA: TBI, MULTI-BROKEN BONES OTHER PAST HISTORY:\T\ nbsp; SEIZURES, BRAIN INFECTION E.D. VISIT COUNT (12 MO.) 3 [facility] 1 [facility] 14 [facility] 4 [facility] 10 [facility]. TOTAL 32 NOTE: Visits indicate total known visits. ED/UCC VISIT TRACKING (12 MO.) 01/10/2019 01:15 SHELLY [place] TYPE: Emergency COMPLAINT: - SEIZURES 12/21/2018 18:19 SHE[facility] [place] TYPE: Emergency COMPLAINT: - CAST REMOVAL DIAGNOSES: - Personal history of transient ischemic attack (TIA), and cerebral infarction without residual deficits - Unspecified fracture of the lower end of left radius, subsequent encounter for closed fracture with routine healing - Other snf (current) drug therapy - Nicotine dependence, unspecified, uncomplicated - Unspecified fracture of lower end of left ulna, subsequent encounter for closed fracture with routine healing - Pain in left arm 12/20/2018 [facility] COMPLAINT: - ETOH 11/25/2018 18:01 Donte [facility]ongSel[facility] [place] TYPE: Emergency COMPLAINT: - Ambulance 11/23/2018 21:23 [facility] 11/19/2018 19:50 [facility] COMPLAINT: - seizure 11/10/2018 07:44 [facility] COMPLAINT: - HIP PAIN 11/03/2018 16:37 [facility] COMPLAINT: - back pain 10/31/2018 11:50 [facility] COMPLAINT: - hip 10/28/2018 12:54 [facility] COMPLAINT: - possible seizure 10/25/2018 11:21 [facility] COMPLAINT: - medical complaint 10/17/2018 15:46 [facility] COMPLAINT: - ETOH 10/16/2018 03:29 [facility] COMPLAINT: - possible sizure 10/14/2018 05:43 [facility] TYPE: Emergency 10/11/2018 19:37 [facility] TYPE: Emergency COMPLAINT: - intoxication 08/30/2018 11:19 [facility] COMPLAINT: - Unspecified convulsions DIAGNOSES: 1. Unspecified convulsions 1. Alcohol dependence with withdrawal delirium 2. Unspecified injury of head, initial encounter 3. Unspecified fracture of lower end of left ulna, initial encounter for closed fracture 4. Laceration without foreign body of scalp, initial encounter 5. Unspecified fall, initial encounter 6. Encounter for immunization 08/29/2018 22:53 [facility] Kathy ALEXANDER TYPE: Emergency COMPLAINT: - seizure 08/28/2018 12:33 [facility] Kathy ALEXANDER TYPE: Emergency COMPLAINT: - Intoxicated 08/28/2018 02:40 [facility] Ayana ALEXANDER TYPE: Emergency COMPLAINT: - medical clearence 08/24/2018 21:38 [facility] Kathy ALEXANDER TYPE: Emergency COMPLAINT: - post seizure Plus 12 More Visits INPATIENT VISIT TRACKING (12 MO.) No inpatient visits to display in this time frame [email or web address]
[2019-01-10] MEDS ORDERED: KEPPRA500 MG PO (18:45)
== END 2019-01-10 05:20 | disposition home or self-care (01) ==
LOC: ED 01:15
DX: R56.9 Unspecified convulsions (principal); F10.129 Alcohol abuse with intoxication, unspecified; F17.200 Nicotine dependence, unspecified, uncomplicated; Z86.73 Personal history of transient ischemic attack (TIA), and cerebral infarction without residual deficits
CPT/HCPCS: 36415; 80053; 85025; 99285; G0480

== ENCOUNTER 2019-01-10 17:14 | Emergency (ER) | payer OTHER ==
[~2019-01-10] VITALS: Ht 172.7 cm; Wt 67.1 kg
--- OUTSIDE RECORDS SUMMARY | 2019-01-10 17:16 | XMS ---
PreManage Notification: ARTEMIO GREEN Security Cutter V Groove Events No recent Security Events currently on file CRITERIA MET - Group Notification - 6 ED Visits in 6 Months - [facility] - Has Care Guidelines - [facility] - 3 Facilities in 90 Days - [facility] - 2 Visits in 30 Days CARE PROVIDERS EMERY FELIPE Physician Micro Computer Data Processor: Surgical 12/27/2017-Current PHONE: Unknown CAITIE Srinivasan Primary Care Current PHONE: [phone] Tara Chapin Primary Care Current Medical PHONE: Unknown Guidelines Source: [facility] Guidelines Date: 01/07/2018 Care Coordination: IF PATIENT RETURNS TO ED WITH SAFETY CONCERN :\T\nbsp; CALL AND REPORT TO [facility] ADULT PROT[facility] AT [phone]. Care History Behavioral 12/25/2017 [facility] PATIENT HAS TBI HISTORY.\T\nbsp; DOES NOT SLEEP WELL.\T\nbsp; PATIENT VERY RESTLESS.\T\nbsp; PATIENT IS PRONE TO WANDER AWAY .\T\nbsp; Medical/Surgical 04/01/2018 [facility] - PATIENT WAS LAST SEEN BY [...] UP APT. - PATIENT CURRENT RN VAMSI CLARITY DEVELOPER IS BRENT- CONTACT NUMBER [phone]. 12/25/2017 [facility] HISTORY:\T\nbsp; 09/13 - TRAUMA: TBI, MULTI-BROKEN BONES OTHER PAST HISTORY:\T\ nbsp; SEIZURES, BRAIN INFECTION E.D. VISIT [facility] (12 MO.) [facility] 14 [facility] 4 [facility] 11 [facility]. TOTAL 33 NOTE: Visits indicate total known visits. ED/UCC VISIT TRACKING (12 MO.) 01/10/2019 17:14 [facility] [place] TYPE: Emergency COMPLAINT: - MULTIPLE COMPLAINTS 01/10/2019 01:15 [facility] [place] TYPE: Emergency COMPLAINT: - SEIZURES 12/21/2018 18:19 [facility] TYPE: Emergency COMPLAINT: - CAST REMOVAL DIAGNOSES: - Personal history of transient ischemic attack (TIA), and cerebral infarction without residual deficits - Unspecified fracture of the lower end of left radius, subsequent encounter for closed fracture with routine healing - Other assisted (current) drug therapy - Nicotine dependence, unspecified, uncomplicated - Unspecified fracture of lower end of left ulna, subsequent encounter for closed fracture with routine healing - Pain in left arm 12/20/2018 [facility] COMPLAINT: - ETOH 11/25/2018 18:01 Donte Slade BaljeetSelvin CarneyManitou [place] TYPE: Emergency COMPLAINT: - Ambulance 11/23/2018 21:[facility] 11/19/2018 19:50 [facility]: Emergency COMPLAINT: - seizure 11/10/2018 07:44 [facility] COMPLAINT: - HIP PAIN 11/03/2018 16:37 [facility] COMPLAINT: - back pain 10/31/2018 11:50 [facility] COMPLAINT: - hip 10/28/2018 12:54 [facility] COMPLAINT: - possible seizure 10/25/2018 11:[facility]: Emergency COMPLAINT: - medical complaint 10/17/2018 15:46 [facility]: [facility] COMPLAINT: - ETOH 10/16/2018 03:29 [facility] COMPLAINT: - possible sizure 10/14/2018 05:43 [facility]: Emergency 10/11/2018 19:37 [facility] Emergency COMPLAINT: - intoxication 08/30/2018 11:19 [facility] Tara Pacheco TYPE: Emergency COMPLAINT: - Unspecified convulsions DIAGNOSES: 1. Unspecified convulsions 1. Alcohol dependence with withdrawal delirium 2. Unspecified injury of head, initial encounter 3. Unspecified fracture of lower end of left ulna, initial encounter for closed fracture 4. Laceration without foreign body of scalp, initial encounter 5. Unspecified fall, initial encounter 6. Encounter for immunization 08/29/2018 22:53 Donte ALEXANDER TYPE: Emergency COMPLAINT: - seizure 08/28/2018 12:33 Donte ALEXANDER TYPE: Emergency COMPLAINT: - Intoxicated 08/28/2018 02:40 Donte ALEXANDER TYPE: Emergency COMPLAINT: - medical clearence Plus 13 More Visits INPATIENT VISIT TRACKING (12 MO.) No inpatient visits to display in this time frame [id number]
[2019-01-10] MEDS ORDERED: KEPPRA500 MG PO (18:45)
== END 2019-01-10 19:29 | disposition home or self-care (01) ==
LOC: ED 17:14
DX: G40.909 Epilepsy, unspecified, not intractable, without status epilepticus (principal); F10.129 Alcohol abuse with intoxication, unspecified; F17.200 Nicotine dependence, unspecified, uncomplicated; Z86.73 Personal history of transient ischemic attack (TIA), and cerebral infarction without residual deficits
CPT/HCPCS: 99282

== ENCOUNTER 2019-01-27 15:16 | Emergency (ER) | payer OTHER ==
[~2019-01-27] VITALS: Ht 172.7 cm; Wt 68.4 kg
--- OUTSIDE RECORDS SUMMARY | 2019-01-27 15:20 | XMS ---
PreManage Notification: ARTEMIO GREEN Security Manager Employment Events No recent Security Events currently on file CRITERIA MET - Group Notification - 6 ED Visits in 6 Months - [facility] - Has Care Guidelines - [facility] - 3 Facilities in 90 Days - [facility] - 2 Visits in 30 Days CARE PROVIDERS EMERY FELIPE Physician Inking Machine Tender: Surgical 12/27/2017-Current PHONE: Unknown CAITIE Srinivasan Primary Care Current PHONE: [phone] Tara Chapin Primary Care Current Medical PHONE: Unknown Guidelines Source: [facility] Guidelines Date: 01/07/2018 Care Coordination: IF PATIENT RETURNS TO ED WITH SAFETY CONCERN :\T\nbsp; CALL AND REPORT TO [facility] ADULT PROTECTIVE SERVICES AT [phone]. Care History Medical/Surgical 01/13/2019 [facility] - PLEASE DO NOT PROVIDE FOOD TO PATIENT-UNLESS MEDICALLY NECESSARY PROVIDER DISCRETION 04/01/2018 [facility] - PATIENT WAS LAST SEEN BY [...] UP APT. - PATIENT CURRENT RN VAMSI WET END OPERATOR IS BRENT- CONTACT NUMBER [phone]. 12/25/2017 [facility] HISTORY:\T\nbsp; 09/13 - TRAUMA: TBI, MULTI-BROKEN BONES OTHER PAST HISTORY:\T\ nbsp; SEIZURES, BRAIN INFECTION Behavioral 12/25/2017 [facility] PATIENT HAS TBI HISTORY.\T\nbsp; DOES NOT SLEEP WELL.\T\nbsp; PATIENT VERY RESTLESS.\T\nbsp; PATIENT IS PRONE TO WANDER AWAY .\T\nbsp; [facility].D. [facility] (12 MO.) [facility] 14 [facility] 4 [facility] 12 [facility] TOTAL 34 NOTE: Visits indicate total known visits. ED/UCC VISIT TRACKING (12 MO.) 01/27/2019 15:18 [facility] [place] TYPE: Emergency COMPLAINT: - POSS SEIZURE 01/10/2019 17:14 [facility] [place] TYPE: Emergency COMPLAINT: - MULTIPLE COMPLAINTS DIAGNOSES: - Nicotine dependence, unspecified, uncomplicated - Unspecified convulsions - Epilepsy, unspecified, not intractable, without status epilepticus - Personal history of transient ischemic attack (TIA), and cerebral infarction without residual deficits - Alcohol abuse with intoxication, unspecified 01/10/2019 01:15 [facility] [place] TYPE: Emergency COMPLAINT: - SEIZURES DIAGNOSES: - Unspecified convulsions - Nicotine dependence, unspecified, uncomplicated - Alcohol abuse with intoxication, unspecified - Personal history of transient ischemic attack (TIA), and cerebral infarction without residual deficits 12/21/2018 18:19 [place] TYPE: Emergency COMPLAINT: [...] - Pain in left arm 12/20/2018 14:02 [facility] TYPE: Emergency COMPLAINT: - ETOH 11/25/2018 18:01 [facility] TYPE: Emergency COMPLAINT: - Ambulance 11/23/2018 21:23 [facility] Shazia ALEXANDER TYPE: Emergency 11/19/2018 19:50 [facility] Shazia A[place] TYPE: Emergency COMPLAINT: - seizure 11/10/2018 07:44 [place] Mindy ALEXANDER TYPE: Emergency COMPLAINT: - HIP PAIN 11/03/2018 16:37 [facility] Shazia A[place]ANDER TYPE: Emergency COMPLAINT: - back pain 10/31/2018 11:50 [facility] [place] B[place]JAM[place] TYPE: Emergency COMPLAINT: - hip 10/28/2018 12:54 [facility] COMPLAINT: - possible seizure 10/25/2018 11:21 [facility] [place] TYPE: Emergency COMPLAINT: - medical complaint 10/17/2018 15:46 [facility] TYPE: Emergency COMPLAINT: - ETOH 10/16/2018 03:29 [facility]: Emergency COMPLAINT: - possible sizure 10/14/2018 05:43 [facility] [place] [facility] Emergency 10/11/2018 19:37 [facility] [place] TYPE: Emergency COMPLAINT: - intoxication 08/30/2018 11:19 [facility] COMPLAINT: - Unspecified convulsions DIAGNOSES: [...] Donte ALEXANDER TYPE: Emergency COMPLAINT: - Intoxicated Plus 14 More Visits INPATIENT VISIT TRACKING (12 MO.) No inpatient visits to display in this time frame [id number]
[2019-01-27] MEDS ORDERED: LEVAQUIN500 MG PO (18:31)
[2019-01-27] MEDS ORDERED: KEPPRA500 MG PO (18:31)
== END 2019-01-27 19:24 | disposition home or self-care (01) ==
LOC: ED 15:16
DX: J18.9 Pneumonia, unspecified organism (principal); R56.9 Unspecified convulsions; Z86.73 Personal history of transient ischemic attack (TIA), and cerebral infarction without residual deficits; F17.200 Nicotine dependence, unspecified, uncomplicated
CPT/HCPCS: 71046; 96365; 96368; 99284-25; J0696; J1956; J7030

== ENCOUNTER 2019-01-29 08:21 | Emergency (ER) | payer OTHER ==
[~2019-01-29] VITALS: Ht 165.1 cm; Wt 63.0 kg
--- OUTSIDE RECORDS SUMMARY | ~2019-01-29 | XMS | Encounter Summary ---
Demographics + + + | Address | [address] | | | [place] [address] | + + + | Home Phone | | + + + | Preferred Language | Unknown | + + + | Marital Status | Single | + + + | Rastafari Affiliation | PEN | + + + | Race | or | + + + | Ethnic Group | Not or | + + + Author + + + | Author | [facility] [employer] [facility] | + + + | Organization | [facility] [employer] [facility] | + + + | Address | Unknown | + + + | Phone | Unavailable | + + + Support + + +---------+ + | Name | Relationship | Address | Phone | + + +---------+ + | Kaylie Baig | ECON | Unknown | | + + +---------+ + Care Team Providers + +------+ + | Care Motorcycle Technician Name | Role | Phone | + +------+ + | No Pcp Per Patient | PCP | Unavailable | + +------+ + Encounter Details +--------+ + + + + | Date | Type | Department | Care Team | Description | +--------+ + + + + | 08/31/ | Procedure | Diagnostic Imaging | | | | 2018 | Pass | Services at [facility] | | | | | | [address] | | | | | | [place] Mailcode: | | | | | | [address] | | | | | | [facility] | | | | | | [place], [place] | | | | | | [address] | | | | | | [phone] | | | +--------+ + + + [...]
--- OUTSIDE RECORDS SUMMARY | ~2019-01-29 | XMS | Encounter Summary ---
Demographics + + + | Address | [address] | | | [place] [address] | + + + | Home Phone | | + + + | Preferred Language | Unknown | + + + | Marital Status | Single | + + + | Church Affiliation | PEN | + + + | Race | or | + + + | Ethnic Group | Not or | + + + Author + + + | Author | [facility] [employer] [facility] | + + + | Organization | Counts Include [facility] [employer] [facility] | + + + | Address | Unknown | + + + | Phone | Unavailable | + + + Support + + +---------+ + | Name | Relationship | Address | Phone | + + +---------+ + | Kaylie Baig | ECON | Unknown | | + + +---------+ + Care Team Providers + +------+ + | Care Vehicle Safety Inspector Name | Role | Phone | + +------+ + | No Pcp Per Patient | PCP | Unavailable | + +------+ + Encounter Details +--------+ + + + + | Date | Type | Department | Care Team | Description | +--------+ + + + + | 10/24/ | Procedure | 6A Intra Op [facility] | | | | 2018 | Pass | [facility] | | | | | | Admitting Desk | | | | | | Located on the 9th | | | | | | floor [address] | | | | | | [address] | | | | | | [place], [place] | | | | | | [address] | | | +--------+ + + + [...]
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
--- OUTSIDE RECORDS SUMMARY | ~2019-01-29 | XMS | Encounter Summary ---
Demographics + + + | Address | [address] | | | [place] [address] | + + + | Home Phone [...] Author + + + | Author | [facility] | + + + | Organization | [facility] | + + + | Address | Unknown | + + + | Phone | Unavailable | + + + Support + + +---------+ + | Name | Relationship | Address | Phone | + + +---------+ + | Kaylie Baig | ECON | Unknown | | + + +---------+ + Care Team Providers + +------+ + | Care Internet Network Specialist Name | Role | Phone | [...] | 2018 | Pass | [facility] | | | | | | Admitting Desk | | | | | | Located on the 9th | | | | | | floor [address] [facility] | | | | | | [address] | | | | | | [place], [place] | | | | | | [address] | | | +--------+ + + + [...]
--- OUTSIDE RECORDS SUMMARY | ~2019-01-29 | XMS | Encounter Summary ---
Demographics + + + | Address | [address] | | | [place] [address] | + + + | Home Phone [...] Author + + + | Author | [facility] [facility] | + + + | Organization | [facility] [employer] [facility] | + + + | Address | Unknown | + + + | Phone | Unavailable | + + + Support + + +---------+ + | Name | Relationship | Address | Phone | + + +---------+ + | Kaylie Baig | ECON | Unknown | | + + +---------+ + Care Team Providers + +------+ + | Care Post Anesthesia Care Unit Nurse Name | Role | Phone | [...] | | | | | floor [address] [facility] | | | | | | [address] | | | | | | [place], [place] | | | | | | [address] | | | +--------+ + + + [...]
--- OUTSIDE RECORDS SUMMARY | ~2019-01-29 | XMS | Encounter Summary ---
Demographics + + + | Address | [address] | | | [place] [address] | + + + | Home Phone | | + + + | Preferred Language | Unknown | + + + | Marital Status | Single | + + + | Latter Day Affiliation | PEN | + + + | Race | or | + + + | Ethnic Group | Not or | + + + Author + + + | Author | [facility] | + + + | Organization | [facility] [employer] [facility] | + + + | Address | Unknown | + + + | Phone | Unavailable | + + + Support + + +---------+ + | Name | Relationship | Address | Phone | + + +---------+ + | Kaylie Baig | ECON | Unknown | | + + +---------+ + Care Team Providers + +------+ + | Care Share Dairy Farmer Name | Role | Phone | + [...] | 2018 | Pass | [facility] | | | | | | Admitting Desk | | | | | | Located on the 9th | | | | | | floor [address] [facility] [facility] | | | | | | [address] | | | | | | [place], [place] | | | | | | [address] | | | +--------+ + + + [...]
--- OUTSIDE RECORDS SUMMARY | ~2019-01-29 | XMS | Encounter Summary ---
Demographics + + + | Address | [address] | | | [place] [address] | + + + | Home Phone [...] + + | Author | [facility] | + + + | Organization | [facility] [employer] [facility] | + + + | Address | Unknown | + + + | Phone | Unavailable | + + + Support + + +---------+ + | Name | Relationship | Address | Phone | + + +---------+ + | Kaylie Baig | ECON | Unknown | | + + +---------+ + Care Team Providers + +------+ + | Care Juke Box Servicer Name | Role | Phone | + [...] 09/01/ | Anesthesia | 6A Intra Op [facility] | Joslyn Boss | | | 2018 | Event | [facility] | MD Nay [address] [facility] | | | | | Admitting Desk | [address] | | | | | Located on the 9 | [place], [place] | | | | | floor [address] [place] [address] | [address] | | | | | [facility] | [phone] | | | | | [place], [place] | | | | | | [address] | | | +--------+ + + + [...] | and ventilated, signout given to ICU teamSelvin C-collar in place | | | 5 [...] | | eral | Hand; 18 g; 09/05/17; 1717; Per | Guera Gresham RN | Barbie Yu RN | | IV | protocol | | | +--------+ + + + | Periph | 08/31/17; Other hospital; Right; | 08/31/17 0000 by | 09/05/178 by | | eral | Hand; 20 [...]
--- OUTSIDE RECORDS SUMMARY | ~2019-01-29 | XMS | Encounter Summary ---
Demographics + + + | Address | [address] | | | [place] [address] | + + + | Home Phone | | + + + | Preferred Language | Unknown | + + + | Marital Status | Single | + + + | Tenriism Affiliation | PEN | + + + | Race | or | + + + | Ethnic Group | Not or | + + + Author + + + | Author | [facility] [employer] [facility] | + + + | Organization | [facility] [employer] [facility] | + + + | Address | Unknown | + + + | Phone | Unavailable | + + + Support + + +---------+ + | Name | Relationship | Address | Phone | + + +---------+ + | Kaylie Baig | ECON | Unknown | | + + +---------+ + Care Team Providers + +------+ + | Care Cruise Director Name | Role | Phone | [...] + + + + | 09/15/ | Coding Specialist Home Health | Neurosurgery at | Dallin Bourgeois, | Other closed | | 2018 | | [facility] [address] | MD [address] | nondisplaced | | | | [address] Mailcode: CH[address]N | [address] | fracture of seventh | | | | [place] for [facility] | [facility] [place] | cervical vertebra | | | | and Healing, | [address] | with routine | | | | Building , | [phone] | healing, subsequent | | | | Floor [employer], [place] | | encounter (Primary | | | | [address] | | Dx) | | | | [phone] | | | +--------+ + + + [...]
--- OUTSIDE RECORDS SUMMARY | ~2019-01-29 | XMS | Encounter Summary ---
Demographics + + + | Address | [address] | | | [place] [address] | + + + | Home Phone [...] + | Author | [facility] | + + + | Organization | [facility] [employer] [facility] | + + + | Address | Unknown | + + + | Phone | Unavailable | + + + Support + + +---------+ + | Name | Relationship | Address | Phone | + + +---------+ + | Kaylie Baig | ECON | Unknown | | + + +---------+ + Care Team Providers + +------+ + | Care Bookbinding Machine Operator Name | Role | Phone [...] 2017 | Pass | Services at [facility] | | | | | | [address] | | | | | | [place] Mailcode: | | | | | | [address] [facility] | | | | | | [place], [place] | | | | | | [address] | | | | | | [phone] | | | +--------+ + + + [...]
--- OUTSIDE RECORDS SUMMARY | ~2019-01-29 | XMS | Encounter Summary ---
Demographics + + + | Address | [address] | | | [place] [address] | + + + | Home Phone | | + + + | Preferred Language | Unknown | + + + | Marital Status | Single | + + + | Hindu Affiliation | PEN | + + + | Race | or | + + + | Ethnic Group | Not or | + + + Author + + + | Author | [facility] | + + + | Organization | [facility] [facility] | + + + | Address | Unknown | + + + | Phone | Unavailable | + + + Support + + +---------+ + | Name | Relationship | Address | Phone | + + +---------+ + | Kaylie Baig | ECON | Unknown | | + + +---------+ + Care Team Providers + +------+ + | Care Technical Professional Name | Role | Phone | [...] | | | 2018 | Event | [facility] | MD Nay [address] [facility] | | | | | Admitting Desk | [address] | | | | | Located on the 9 | [place], [place] | | | | | floor [address] [place] [address] | [address] | | | | | [facility] | [phone] | | | | | [place], [place] | | | | | | [address] | | | +--------+ + + + [...] | and ventilated, signout given to ICU teamSevlin C-collar in place | | | 5 [...]
--- OUTSIDE RECORDS SUMMARY | ~2019-01-29 | XMS | Encounter Summary ---
Demographics + + + | Address | [address] | | | [place] [address] | + + + | Home Phone [...] + + | Author | [facility] | + + + | Organization | [facility] [employer] [facility] | [...] Team Providers + +------+ + | Care Carrier Packer Name | Role | Phone | + [...] | | | | | Procedures | [place], [place] | [place] | | | | | [place]QUEST [place] | [address] | [address] | | | | | SURGERY | Phone: | Phone: | | | | | COUNTRY DIRECTOR | [phone] | [phone] | | | | | [place] REPLACE | Fax: | Fax: | | | | | SKULL | [phone] | [phone] | | | | | PLATE/FLAP | | | | | | | [place] REPAIR | | | | | | | SKULL | | | | | | | DEFECT,UP TO | | | | | | | 5CM [place] | | | | | | | REPAIR SKULL | | | | | | | DEFECT,>5CM | | | | | | | [place] | | | | | | | [...] + + + + | 10/31/ | Hr Assistant | [facility] | Magdiel Stock MD | Skull defect | | 2018 | | [facility] [address] | [address] | (Primary Dx) | | | | Ave Mailcode: | [place], | | | | | [facility] | [place] [address] | | | | | and [place], | [phone] | | | | | Building [address] | | | | | | [place], [place] | | | | | | [address] | | | | | | [phone] | | | +--------+ + + + [...]
--- OUTSIDE RECORDS SUMMARY | ~2019-01-29 | XMS | Encounter Summary ---
Demographics + + + | Address | [address] | | | [place] [address] | + + + | Home Phone [...] Author | [facility] [employer] [facility] | + + + | Organization | [facility] [employer] [facility] [...] Team Providers + +------+ + | Care Subgrade Tester Name | Role | Phone | + [...] CENTER | | | | | | [address] | | | | | | [place] Mailcode: | | | | | | [address] | | | | | | [facility] | | | | | | [place], [place] | | | | | | [address] | | | | | | [phone] | | | +--------+ + + + [...]
--- OUTSIDE RECORDS SUMMARY | ~2019-01-29 | XMS | Encounter Summary ---
Demographics + + + | Address | [address] | | | [place] [address] | + + + | Home Phone [...] + | Author | [facility] | + + + | Organization | [facility] | + + + | Address | Unknown | + + + | Phone | Unavailable | + + + Support + + +---------+ + | Name | Relationship | Address | Phone | + + +---------+ + | Kaylie Baig | ECON | Unknown | | + + +---------+ + Care Team Providers + +------+ + | Care Dot Compliance Manager Name | Role | Phone [...] | | | 2017 | Event | [facility] | DOBBY LOOM CHAIN PEGGER [address] [facility] | | | | | Admitting Desk | [address] | | | | | Located on the 9 | [place], [place] | | | | | floor [address] [facility] | [address] | | | | | [address] | [phone] | | | | | [place], [place] | | | | | | [address] | | | +--------+ + + + [...] +--------+ + + + | Incisi | 05/28/18; 0015; Right; Posterior; | 09/23/17 0015 by | 11/05/17 1702 by | | on | head- temporal; [...] | | | | Lumen | Yes; [id number]; 11/09/17; 1154; | | | | | [...] secured with: adhesive tape Depth | | | at Lip: 23 Cm Airway leak: No Narrative Attending | | | physically present Atraumatic intubation, lips, teeth, nose in | | | pre-op condition. | | + + + documented [...] +--------+---+---+ | glycopyrrolate (SADIQ) | Given | 11/06/19 | 0.2 mg | | | | injection INTRAPROCEDURE PRN, | | 18 5:55 | | | | | Starting 11/05/17 at 1745, | | PM PDT | | | | | Until 7/10/18 at 1905 | | | | | [...]
--- OUTSIDE RECORDS SUMMARY | ~2019-01-29 | XMS | Encounter Summary ---
Demographics + + + | Address | [address] | | | [place] [address] | + + + | Home Phone [...] + + | Author | [facility] | + + + | Organization | [facility] [employer] [facility] | + [...] Team Providers + +------+ + | Care Foil Spinner Name | Role | Phone | + [...] | | | | | floor [address] [facility] | | | | | | [address] | | | | | | [place], [place] | | | | | | [address] | | | +--------+ + + + [...]
--- OUTSIDE RECORDS SUMMARY | ~2019-01-29 | XMS | Encounter Summary ---
Demographics + + + | Address | [address] | | | [place] [address] | + + + | Home Phone [...] + + + | Author | [facility] | + + + | Organization | [facility] | + [...] Providers + +------+ + | Care Centrifugal Spinner Name | Role | Phone | [...] | | | 2017 | Event | [facility] | SANITATION WORKER CLEANING MACHINERY [address] [facility] | | | | | Admitting Desk | [address] | | | | | Located on the 9 | [place], [place] | | | | | floor [address] [facility] | [address] | | | | | [address] | [phone] | | | | | [place], [place] | | | | | | [address] | | | +--------+ + + + [...] | | | | Lumen | Yes; [id number]; 11/09/17; 1154; | | | | | [...]
--- OUTSIDE RECORDS SUMMARY | ~2019-01-29 | XMS | Encounter Summary ---
Demographics + + + | Address | [address] | | | [place] [address] | + + + | Home Phone [...] Author | [facility] | + + + | Organization | [facility] [employer] [facility] | + + + | Address | Unknown | + + + | Phone | Unavailable | + + + Support + + +---------+ + | Name | Relationship | Address | Phone | + + +---------+ + | Kaylie Baig | ECON | Unknown | | + + +---------+ + Care Team Providers + +------+ + | Care Metal Machinist Name | Role | Phone | + [...] | | | | | floor [address] [facility] | | | | | | [address] | | | | | | [place], [place] | | | | | | [address] | | | +--------+ + + + [...]
--- OUTSIDE RECORDS SUMMARY | ~2019-01-29 | XMS | Encounter Summary ---
Demographics + + + | Address | [address] | | | [place] [address] | + + + | Home Phone [...] + | Author | [facility] [employer] [facility] | + + + | Organization | [facility] [employer] [facility] [...] Team Providers + +------+ + | Care Civil Engineering Assistant Name | Role | Phone | [...] Pharmacy | | | | | | [address] | | | | | | [place], | | | | | | [place] [address] | | | +--------+ + + + [...]
--- OUTSIDE RECORDS SUMMARY | ~2019-01-29 | XMS | Encounter Summary ---
Demographics + + + | Address | [address] | | | [place] [address] | + + + | Home Phone [...] Author | [facility] [employer] [facility] | + + + | Organization | [facility] [employer] [facility] | + + + | Address | Unknown | + + + | Phone | Unavailable | + + + Support + + +---------+ + | Name | Relationship | Address | Phone | + + +---------+ + | Kaylie Baig | ECON | Unknown | | + + +---------+ + Care Team Providers + +------+ + | Care Rotary Dryer Operator Name | Role | Phone | [...] | | | 2018 | Pass | [facility] | | | | | | Admitting Desk | | | | | | Located on the 9th | | | | | | floor [address] [facility] | | | | | | [address] | | | | | | [place], [place] | | | | | | [address] | | | +--------+ + + + [...]
--- OUTSIDE RECORDS SUMMARY | ~2019-01-29 | XMS | Encounter Summary ---
Demographics + + + | Address | [address] | | | [place] [address] | + + + | Home [...] + | Author | [facility] | + + + | Organization | [facility] [employer] [facility] [...] Team Providers + +------+ + | Care Sign Erector Name | Role | Phone | + [...] | | | floor [address] [facility] | | | | | | [address] | | | | | | [place], [place] | | | | | | [address] | | | +--------+ + + + [...]
--- OUTSIDE RECORDS SUMMARY | ~2019-01-29 | XMS | Encounter Summary ---
Demographics + + + | Address | [address] | | | [place] [address] | + + + | Home Phone [...] | Author | [facility] [employer] [facility] | + + + | Organization | [facility] [employer] [facility] | + + + | Address | Unknown | + + + | Phone | Unavailable | + + + Support + + +---------+ + | Name | Relationship | Address | Phone | + + +---------+ + | Kaylie Baig | ECON | Unknown | | + + +---------+ + Care Team Providers + +------+ + | Care Rodbuster Name | Role | Phone | + [...] HOSPITAL | | | | | | [address] | | | | | | [place] Mailcode: | | | | | | [address] [facility] | | | | | | [place], [place] | | | | | | [address] | | | | | | [phone] | | | +--------+ + + + [...]
--- OUTSIDE RECORDS SUMMARY | ~2019-01-29 | XMS | Encounter Summary ---
Demographics + + + | Address | [address] | | | [place] [address] | + + + | Home Phone [...] + | Author | [facility] | + + + | Organization | [facility] [employer] [facility] | + [...] Team Providers + +------+ + | Care Cyber Security Engineer Name | Role | Phone | [...] | | | 2018 | Pass | [facility] | | | | | | Admitting Desk | | | | | | Located on the 9th | | | | | | floor [address] [facility] | | | | | | [address] | | | | | | [place], [place] | | | | | | [address] | | | +--------+ + + + [...]
--- OUTSIDE RECORDS SUMMARY | ~2019-01-29 | XMS | Encounter Summary ---
Demographics + + + | Address | [address] | | | [place] [address] | + + + | Home Phone [...] Author | [facility] [employer] [facility] | + + + | Organization | [facility] [employer] [facility] [...] Team Providers + +------+ + | Care Dinkey Operator Name | Role | Phone | [...] | | | 2018 | Event | [facility] | MD Nay [address] [facility] | | | | | Admitting Desk | [address] | | | | | Located on the 9 | [place], [place] | | | | | floor [address] [place] [address] | [address] | | | | | [facility] | [phone] | | | | | [place], [place] | | | | | | [address] | | | +--------+ + + + [...] | eral | Hand; 20 g; 09/05/17; 8; Per | Guera Gresham RN | Barbie [...] | 08/31/17; 1745; Left; Groin; | 08/31/17 174 by | 09/05/17 1717 by | | [...] Cristina | Cristina | | Tube | Prabhakar Villegas RN | SCOTT Villegas | +--------+ + + + | Incisi | 09/01/17; Sudarshan Shields MD; Midline; | 09/01/17 0000 by | 10/09/17 1110 by | | on | abdomen; 10/09/17; 1110 | Gunjan Herman RN | Shante Justin | +--------+ + + + | Adriana | 09/01/17; Dr. George Shah; | 09/01/17 [...] Cristina | Barbie Yu RN | | Cathet | 1214; Per order | SCOTT Villegas | | | er | | | | +--------+ + + + | Periph | 09/02/17; 0610; Left; | 09/02/17 0610 by | 09/03/17 0740 by | | stevenl | Antecubital; 20 g; 09/03/17; 0740 | Cristina | Zenaida Black RN | [...]
--- OUTSIDE RECORDS SUMMARY | ~2019-01-29 | XMS | Encounter Summary ---
Demographics + + + | Address | [address] | | | [place] [address] | + + + | Home Phone [...] Author + + + | Author | [facility] [email or web address] [facility] | + + + | Organization | [facility] [employer] [facility] | + + + | Address | Unknown | + + + | Phone | Unavailable | + + + Support + + +---------+ + | Name | Relationship | Address | Phone | + + +---------+ + | Kaylie Baig | ECON | Unknown | | + + +---------+ + Care Team Providers + +------+ + | Care Net Developer Software Engineer C Name | Role | Phone | + [...] [place] | | | | | | [address] | | | | | | [place] Mailcode: | | | | | | [address] [facility] | | | | | | [place], [place] | | | | | | [address] | | | | | | [phone] | | | +--------+ + + + [...]
--- OUTSIDE RECORDS SUMMARY | ~2019-01-29 | XMS | Encounter Summary ---
Demographics + + + | Address | [address] | | | [place] [address] | + + + | Home Phone [...] | [facility] | + + + | Organization | [facility] [employer] [facility] [...] Team Providers + +------+ + | Care Printed Circuit Board Designer Name | Role | Phone | [...] | | | 2018 | Event | [facility] | [address] | | | | | Admitting Desk | [place] [facility] | | | | | [facility] on the | [place] [address] | | | | | floor [address] | [phone] | | | | | [address] | | | | | | [place], [place] | | | | | | [address] | | | +--------+ + + + [...] centrally accessed); | | | | | [id number]; 10/22/17; 1542; | | | | | [...] G-tube | 10/10/17 1135 by | 10/12/17 173 by | | g Tube | ([facility] low profile g-tube 18 fr | Katrin Watson RN | Doreen Lopez RN | | | 3.5 cm); Abdomen UL; 18; | | | | | tolerated well; 10/12/17; 1733 | | | +--------+ + + + | Urethr | 10/12/17; (Denae Seth); 1; Rees; | 10/12/17 0000 by | 10/14/17 0458 by | | al | 16 Fr.; 5 mL; 10/14/17; 0458; Per | Valeria Seth RN | Austen Weaver RN | | Cathet | protocol | | | | er | | | | +--------+ + + + | Drain | 10/12/17; (); Other (Comment) | 10/12/17 0000 by | 10/12/171731 by | | | ([place] 19fr channel drain); | Valeria Seth RN | Doreen Lopez RN | | | 10/12/17; 173 | | | +--------+ + + + [...] Abdomen UL; | Doreen Lopez RN | Amelia Hart RT | | | 24; 10/22/17; 1440; Per [...] | | | mask not attempted Intubation Blade type: Other [...] adhesive tape Depth | | | at Teeth: 22 Cm Narrative Attending physically | | | present Performed by Resident | | + + + documented [...]
--- OUTSIDE RECORDS SUMMARY | ~2019-01-29 | XMS | Encounter Summary ---
Demographics + + + | Address | [address] | | | [place] [address] | + + + | Home Phone [...] | Author | [facility] [employer] [facility] | + + + | Organization | [facility] [employer] [facility] | + + + | Address | Unknown | + + + | Phone | Unavailable | + + + Support + + +---------+ + | Name | Relationship | Address | Phone | + + +---------+ + | Kaylie Baig | ECON | Unknown | | + + +---------+ + Care Team Providers + +------+ + | Care Lecturer Of Portuguese Name | Role | Phone | + [...] CENTER | | | | | | [address] | | | | | | [place] Mailcode: | | | | | | [address] [facility] | | | | | | [place], [place] | | | | | | [address] | | | | | | [phone] | | | +--------+ + + + [...]
--- OUTSIDE RECORDS SUMMARY | ~2019-01-29 | XMS | Encounter Summary ---
Demographics + + + | Address | [address] | | | [place] [address] | + + + | Home Phone [...] Author | [facility] [employer] [facility] | + + + | Organization | [facility] [employer] [facility] | + + + | Address | Unknown | + + + | Phone | Unavailable | + + + Support + + +---------+ + | Name | Relationship | Address | Phone | + + +---------+ + | Kaylie Baig | ECON | Unknown | | + + +---------+ + Care Team Providers + +------+ + | Care Infrastructure Architect Name | Role | Phone | [...] | 2018 | Pass | [facility] | | | | | | Admitting Desk | | | | | | Located on the 9th | | | | | | floor [address] [facility] | | | | | | [address] | | | | | | [place], [place] | | | | | | [address] | | | +--------+ + + + [...]
[~2019-01-29 08:21] MED LIST changes: +LEVAQUIN500 MG PO
--- OUTSIDE RECORDS SUMMARY | 2019-01-29 08:24 | XMS ---
PreManage Notification: ARTEMIO GREEN Security [place] Events No recent Security Events currently on file CRITERIA MET - Group Notification - 6 ED Visits in 6 Months - [facility] - Has Care Guidelines - [facility] - 3 Facilities in 90 Days - [facility] - 2 Visits in 30 Days CARE PROVIDERS EMERY FELIPE Physician Machinist Supervisor: Surgical 12/27/2017-Current PHONE: Unknown Name Unknown Clinic/Center 01/28/2019-Current PHONE: [phone] CAITIE Srinivasan Primary Care Current PHONE: [phone] Tara Chapin Primary Care Current Medical PHONE: Unknown Guidelines Source: [facility] Guidelines Date: 01/07/2018 Care Coordination: IF PATIENT RETURNS TO ED WITH SAFETY CONCERN :\T\nbsp; CALL AND REPORT TO [facility] ADULT PROTECTIVE [facility] AT [phone]. Care History Behavioral 12/25/2017 [facility] PATIENT HAS TBI HISTORY.\T\nbsp; DOES NOT SLEEP WELL.\T\nbsp; PATIENT VERY RESTLESS.\T\nbsp; PATIENT IS PRONE TO WANDER AWAY .\T\nbsp; Medical/Surgical 01/13/2019 [facility] - PLEASE DO NOT PROVIDE FOOD TO PATIENT-UNLESS MEDICALLY NECESSARY PROVIDER DISCRETION 04/01/2018 [facility] - PATIENT [...] UP APT. - PATIENT CURRENT SCOTT AGUSTIN VOCATIONAL TECHNICAL EDUCATION TEACHER IS BRENT- CONTACT NUMBER [phone]. 12/25/2017 [facility] HISTORY:\T\nbsp; 09/13 - TRAUMA: TBI, MULTI-BROKEN BONES OTHER PAST HISTORY:\T\ nbsp; SEIZURES, BRAIN INFECTION E.D. VISIT COUNT (12 MO.) 3 [facility] BaljeetSelvin [place] 1 [facility] H. 14 [facility] H. [address] [facility] 13 SHELLY Giordano TOTAL 35 NOTE: Visits indicate total known visits. ED/UCC VISIT TRACKING (12 MO.) 01/29/2019 08:21 [place] [place] TYPE: Emergency COMPLAINT: - VOMITING BLOOD 01/27/2019 15:18 [facility] [place] TYPE: Emergency [...] infarction without residual deficits 12/21/2018 18:19 [place] TYPE: Emergency COMPLAINT: - CAST REMOVAL DIAGNOSES: - Personal history of transient ischemic attack (TIA), and cerebral infarction without residual deficits - Unspecified fracture of the lower end of left radius, subsequent encounter for closed fracture with routine healing - [facility] [place] [facility] drug therapy - Nicotine dependence, unspecified, uncomplicated - Unspecified fracture of lower end of left ulna, subsequent encounter for closed fracture with routine healing - Pain in left arm 12/20/2018 14:02 [place] A[place]AND[place] TYPE: Emergency COMPLAINT: - ETOH 11/25/2018 18:01 Donte [place]ade BaljeetSelvin ALEXANDER TYPE: Emergency COMPLAINT: - Ambulance 11/23/2018 21:23 [place] TYPE: Emergency 11/19/2018 19:50 [place] TYPE: Emergency COMPLAINT: - seizure 11/10/2018 07:44 [place] [facility] Shazia ALEXANDER TYPE: Emergency COMPLAINT: - HIP PAIN 11/03/2018 16:37 [facility] [place] ALEXANDER TYPE: Emergency COMPLAINT: - back pain 10/31/2018 [facility] COMPLAINT: - hip 10/28/2018 12:54 [facility] [place] ALEXANDER TYPE: Emergency COMPLAINT: - possible seizure 10/25/2018 11:21 [facility] COMPLAINT: - medical complaint 10/17/2018 15:46 [facility] COMPLAINT: - ETOH 10/16/2018 03:29 [facility] Edmondson [place] TYPE: Emergency COMPLAINT: - possible sizure 10/14/2018 05:43 [facility]: Emergency 10/11/2018 19:37 [facility] [place] ALEXANDER TYPE: Emergency COMPLAINT: - intoxication 08/30/2018 11:19 [facility] [place] TYPE: Emergency COMPLAINT: - Unspecified convulsions DIAGNOSES: 1. Unspecified convulsions 1. Alcohol dependence with withdrawal delirium 2. Unspecified injury of head, initial encounter 3. Unspecified fracture of lower end of left ulna, initial encounter for closed fracture 4. Laceration without foreign body of scalp, initial encounter 5. Unspecified fall, initial encounter 6. Encounter for immunization 08/29/2018 22:53 [facility] Ayana ALEXANDER TYPE: Emergency COMPLAINT: - seizure Plus 15 More Visits INPATIENT VISIT TRACKING (12 MO.) No inpatient visits to display in this time frame [id number]
== END 2019-01-29 09:32 | disposition home or self-care (01) ==
LOC: ED 08:21
DX: T45.8X1A Poisoning by other primarily systemic and hematological agents, accidental (unintentional), initial encounter (principal); J69.8 Pneumonitis due to inhalation of other solids and liquids; F17.200 Nicotine dependence, unspecified, uncomplicated; Z79.899 Other long term (current) drug therapy
CPT/HCPCS: 71045; 99283-25; 99406

== ENCOUNTER 2019-04-04 14:30 | Emergency (ER) | payer OTHER ==
[~2019-04-04] VITALS: Ht 165.1 cm; Wt 63.0 kg
--- OUTSIDE RECORDS SUMMARY | ~2019-04-04 | XMS | Encounter Summary ---
Demographics + + + | Address | [address] | | | [place] [address] | + + + | Home Phone | | + + + | Preferred Language | Unknown | + + + | Marital Status | Single | + + + | Buddhist Affiliation | PEN | + + + | Race | or | + + + | Ethnic Group | Not or | + + + Author + + + | Author | [facility] | + + + | Organization | [facility] | + + + | Address | Unknown | + + + | Phone | Unavailable | + + + Support + + +---------+ + | Name | Relationship | Address | Phone | + + +---------+ + | Kaylie Baig | ECON | Unknown | | + + +---------+ + Care Team Providers + +------+ + | Care Chemical Plant Worker Name | Role | Phone | + +------+ + | No Pcp Per Patient | PCP | Unavailable | + +------+ + Reason for Visit AUTH/CERT +--------+--------+ + + + + | Status | Reason | Specialty | Diagnoses / | Referred By | Referred To | | | | | Procedures | Contact | Contact | +--------+--------+ + + + + | | | | | | | +--------+--------+ + + + + Encounter Details +--------+ + + + + | Date | Type | Department | Care Team | Description | +--------+ + + + + | 09/02/ | Anesthesia | [facility]A [facility] | Rebekah Wood MD | | | 2018 | Event | [facility] | [address] | | | | | Admitting Desk | [place], | | | | | Located on the | [place] [address] | | | | | floor [address] | [phone] | | | | | [address] | | | | | | [place], [place] | Joslyn [place], | | | | | [address] | [address] | | | | | | [address] | | | | | | [place], [place] | | | | | | [address] | | | | | | [phone] | | | | | | | | +--------+ + + + + Anesthesia Record + + + + + | Procedure Name | Responsible | Anesthesia Start | Anesthesia Stop Time | | | Anesthesiologist | Time | | + + + + + | REOPENING OF RECENT | Rebekah Wood MD | 09/02/17 1227 | 09/02/17 1520 | | LAPAROTOMY, CONTROL | | | | | OF SPLENIC | | | | | HEMMORHAGE (N/A | | | | | Abdomen) | | | | + + + + + +----+---+ + + | Da | T | Event | Comment | | te | i | | | | | m | | | | | e | | | +----+---+ + + | 05 | 1 | Eq Check | Anesthesia machine checked Equipment verified | | /0 | 0 | | | | 7/ | 1 | | | | 20 | 4 | | | | 18 | | | | +----+---+ + + | | 1 | An Start | | | | 2 | | | | | 2 | | | | | 7 | | | +----+---+ + + | | 1 | An Start | | | | 2 | Data | | | | 2 | | | | | 7 | | | +----+---+ + + | | 1 | Pt. Check | Prior to anesthesia start, pt. Identified, examined, chart | | | 2 | | reviewed, PARQ held, anesthetic plan made or approved by | | | 3 | | attending anesthesiologist. NPO status confirmed as appropriate | | | 8 | | for procedure Preoperative evaluation: unchanged | +----+---+ + + | | 1 | Vitals | Monitors applied Vital signs checked Patient ready for anesthesia | | | 2 | Checked | | | | 3 | | | | | 8 | | | +----+---+ + + | | 1 | Ready | | | | 2 | | | | | 3 | | | | | 8 | | | +----+---+ + + | | 1 | Abx | | | | 2 | Administere | | | | 4 | d | | | | 3 | | | +----+---+ + + | | 1 | Timeout | | | | 3 | | | | | 0 | | | | | 1 | | | +----+---+ + + | | 1 | Incision | | | | 3 | | | | | 0 | | | | | 1 | | | +----+---+ + + | | 1 | ICU Handoff | Procedure Anesthetic Brief History Relevant | | | 4 | Call | Meds/Labs/Echo/Imaging Difficult airway? Intraoperative Course: | | | 0 | | Lines/drains EBL Significant Events Meds: Infusions, | | | 2 | | Antibiotics/Redosing, Paralytics (last dose and time), Analgesic | | | | | Plan Central line- will review image and place order in PACU | | | | | Surgeon concerns | +----+---+ + + | | 1 | Surgery end | | | | 4 | | | | | 4 | | | | | 9 | | | +----+---+ + + | | 1 | OR to | patient transported to ICU with continuos monitoring, intubated | | | 5 | ICU/Handoff | and ventilated, signout given to ICU team | | | 1 | | | | | 0 | | | +----+---+ + + | | 1 | an stop | | | | 5 | data | | | | 1 | | | | | 0 | | | +----+---+ + + | | 1 | PACU Rpt | | | | 5 | Given | | | | 2 | | | | | 0 | | | +----+---+ + + | | 1 | Anesthesia | | | | 5 | End | | | | 2 | | | | | 0 | | | +----+---+ + + +------+ | Meds | +------+ + + + | Name | Total | + + + | fentaNYL | 300 mcg | + + + | rocuronium | 50 mg | + + + | PHENYLEPHrine | 200 mcg | + + + | ceFAZolin | 2,000 mg | + + + | propofol INF | 661,725 mcg | + + + | fentaNYL INF | 216.25 mcg | + + + | LR | 0 mL | + + + + + | Name | + + | O2 FR Avance (Total Liters) | + + | Air FR Avance (l/min) | + + | Insp Iso | + + | Et Iso | + + + + | No blood administrations on file. | + + +--------+ + + + | Type | Details | Placement | Removal | +--------+ + + + | Periph | 08/31/17; [facility]; Right; | 08/31/17 0000 by | 09/05/178 by | | ansley | Hand; 18 g; 09/05/17; 1717; Per | Guera Grehsam RN | Barbie Yu RN | | IV | protocol | | | +--------+ + + + | Periph | 08/31/17; [facility] hospital; Right; | 08/31/17 0000 by | 09/05/17 1718 by | | eral | Hand; 20 g; 09/05/17; 1718; Per | Guera Gresham RN | Barbie Yu RN | | IV | protocol | | | +--------+ + + + | ETT | 08/31/17; EMS; Endotracheal Tube; | 08/31/17 0000 by | 09/06/17 1000 by | | | 8; Oral (24 @ teeth); 09/06/17; | Guera Gresham RN | Carin Wilson RN | | | 1000; Per order | | | +--------+ + + + | Arteri | 08/31/17; 1736; trauma team; | 08/31/17 1736 by | 09/05/17 1718 by | | al | Right; Radial; 20g; 09/05/17; | Guera Gresham RN | Barbie Yu RN | | Line | 1718; Per order | | | +--------+ + + + | Sheath | 08/31/17; 1745; Left; Groin; | 08/31/171744 by | 09/05/17 1717 by | | /Intro | 09/05/17; 1717; Per order | Guera Gresham RN | Barbie Yu RN | | ducer | | | | | Single | | | | | Lumen | | | | +--------+ + + + | Chest | 08/31/17; 1750; Left; 32 Fr.; | 08/31/17 1750 by | 09/04/17 1300 by | | Tube | 09/04/17; 1300; Per order | Guera Gresham RN | Umm Knott RN | +--------+ + + + | Naso/O | 08/31/17; 1900; Oral; Tape; | 08/31/17 1900 by | 09/03/17 0102 by | | ro | 09/03/17; 0102; Catheter damage | Cristina | Cristina | | Tube | | SCOTT Villegas | SCOTT Villegas | +--------+ + + + | Incisi | 09/01/17; Sudarshan Shields MD; Midline; | 09/01/17 0000 by | 10/09/17 1110 by | | on | abdomen; 10/09/17; 1110 | Gunjan Herman RN | Shante Justin | +--------+ + + + | Incisi | 09/01/17; Dr. George Shah; | 09/01/17 0000 by | 09/08/171999 by | | on | Right; groin; 09/08/17; 1999 | Abeba Mack RN | Brissa Yost RN | +--------+ + + + | Urethr | 09/01/17; 0200; 1; Temp-probe | 09/01/17 0200 by | 09/07/17 1214 by | | joshua Rees; 16 Fr.; 10 mL; 09/07/17; | Cristina | Barbie Yu RN | | Cale | 1214; Per order | SCOTT Villegas | | | er | | | | +--------+ + + + | Periph | 09/02/17; 0610; Left; | 09/02/17 0610 by | 09/03/17 0740 by | | eral | Antecubital; 20 g; 09/03/17; 739 | Cristina | Zenaida Black RN | | IV | | SCOTT Villegas | | +--------+ + + + documented in this encounter Social History + +-------+ +--------+------+ | Tobacco [...] Visit Diagnoses Not on filedocumented in this encounter Administered Medications + +--------+ + +------+------+ | Medication Order | MAR | Action | Dose | Rate | Site | | | Action | Date | | | | + +--------+ + +------+------+ | ceFAZolin (ANCEF) injection | Given | 09/03/19 | 2,000 mg | | | | intravenous, INTRAPROCEDURE PRN, | | 18 12:43 | | | | | Starting 09/02/17 at 1243, | | PM PDT | | | | | Until Sat09/02/17 at 1510 | | | | | | + +--------+ + +------+------+ +---+---+ | | | +---+---+ + +---------+ +--------+-------+---+ | fentaNYL (SUBLIMAZE) 2500 | New Bag | 09/03/19 | 75 | 7.5 | | | mcg/250 mL (10 mcg/mL) IV | | 18 12:27 | mcg/hr | mL/hr | | | infusion (RTU) INTRAPROCEDURE | | PM PDT | | | | | CONTINUOUS PRN, Starting Mon | | | | | | | 09/02/17 at 1227, Until Sat09/02/17 | | | | | | | at 1510 | | | | | | + +---------+ +--------+-------+---+ +---+---+ | | | +---+---+ + +-------+ +---------+---+---+ | fentaNYL citrate (PF) | Given | 09/03/19 | 100 mcg | | | | (SUBLIMAZE) injection | | 18 1:12 | | | | | intravenous, INTRAPROCEDURE PRN, | | PM PDT | | | | | Starting Sat09/02/17 at 1227, | | | | | | | Until Sat09/02/17 at 1510 | | | | | | + +-------+ +---------+---+---+ +-------+ +---------+---+---+ | Given | 09/03/19 | 100 mcg | | | | | 18 1:05 | | | | | | PM PDT | | | | +-------+ +---------+---+---+ | Given | 09/03/19 | 100 mcg | | | | | 18 12:27 | | | | | | PM PDT | | | | +-------+ +---------+---+---+ +---+---+ | | | +---+---+ + + + +---+-------+---+ | lactated Ringers IV | Rate/Dos | 09/03/19 | | 300 | | | INTRAPROCEDURE CONTINUOUS PRN, | e Change | 18 3:21 | | mL/hr | | | Starting Sat09/02/17 at 1227, | | PM PDT | | | | | Until Sat09/02/17 at 1510 | | | | | | + + + +---+-------+---+ +---------+ +---+-------+---+ | New Bag | 09/03/19 | | 100 | | | | 18 12:27 | | mL/hr | | | | PM PDT | | | | +---------+ +---+-------+---+ +---+---+ | | | +---+---+ + +-------+ +---------+---+---+ | PHENYLEPHrine 100 mcg/mL IV | Given | 09/03/19 | 100 mcg | | | | syringe INTRAPROCEDURE PRN, | | 18 2:20 | | | | | Starting Sat09/02/17 at 1346, | | PM PDT | | | | | Until Sat09/02/17 at 1510 | | | | | | + +-------+ +---------+---+---+ +-------+ +---------+---+---+ | Given | 09/03/19 | 100 mcg | | | | | 18 1:46 | | | | | | PM PDT | | | | +-------+ +---------+---+---+ +---+---+ | | | +---+---+ + +---------+ + +--------+---+ | propofol (DIPRIVAN) injection | New Bag | 09/03/19 | 50 | 22.95 | | | INTRAPROCEDURE CONTINUOUS PRN, | | 18 12:27 | mcg/kg/m | mL/hr | | | Starting Sat09/02/17 at 1227, | | PM PDT | in | | | | Until Sat09/02/17 at 1510 | | | | | | + +---------+ + +--------+---+ +---+---+ | | | +---+---+ + +-------+ +-------+---+---+ | rocuronium (ZEMURON) injection | Given | 09/03/19 | 50 mg | | | | intravenous, INTRAPROCEDURE PRN, | | 18 12:59 | | | | | Starting Sat09/02/17 at 1259, | | PM PDT | | | | | Until Sat09/02/17 at 1510 | | | | | | + +-------+ +-------+---+---+ +---+---+ | | | +---+---+ documented in this encounter"
--- OUTSIDE RECORDS SUMMARY | ~2019-04-04 | XMS | Encounter Summary ---
Demographics + + + | Address | [address] | | | [place] [address] | + + + | Home Phone | | + + + | Preferred Language | Unknown | + + + | Marital Status | Single | + + + | Confucianism Affiliation | PEN | + + + | Race | or | + + + | Ethnic Group | Not or | + + + Author + + + | Author | [facility] | + + + | Organization | [facility] | + + + | Address | Unknown | + + + | Phone | Unavailable | + + + Support + + +---------+ + | Name | Relationship | Address | Phone | + + +---------+ + | Kaylie Baig | ECON | Unknown | | + + +---------+ + Care Team Providers + +------+ + | Care Trend Investigator Name | Role | Phone | + +------+ + | No Pcp Per Patient | PCP | Unavailable | + +------+ + Encounter Details +--------+ + + + + | Date | Type | Department | Care Team | Description | +--------+ + + + + | 11/11/ | Procedure | Diagnostic Imaging | | | | 2018 | Pass | Services at [facility] | | | | | | [address] | | | | | | [place] Mailcode: | | | | | | [address] [facility] | | | | | | [place], [place] | | | | | | [address] | | | | | | [phone] | | | +--------+ + + + [...]
--- OUTSIDE RECORDS SUMMARY | ~2019-04-04 | XMS | Encounter Summary ---
Demographics + + + | Address | [address] | | | [place] [address] | + + + | Home Phone [...] + + | Author | [facility] | + + + | Organization | [facility] | + + + | Address | Unknown | + + + | Phone | Unavailable | + + + Support + + +---------+ + | Name | Relationship | Address | Phone | + + +---------+ + | Kaylie Baig | ECON | Unknown | | + + +---------+ + Care Team Providers + +------+ + | Care Journeyman Lineman Name | Role | Phone | + +------+ + | No Pcp Per Patient | PCP | Unavailable | + +------+ + Encounter Details +--------+ + + + + | Date | Type | Department | Care Team | Description | +--------+ + + + + | 09/11/ | Procedure | Diagnostic Imaging | | | | 2017 | Pass | Services at [facility] | | | | | | [address] | | | | | | [place] Mailcode: | | | | | | [address] [facility] | | | | | | [place], [place] | | | | | | [address] | | | | | | [phone] | | | +--------+ + + + [...]
--- OUTSIDE RECORDS SUMMARY | ~2019-04-04 | XMS | Encounter Summary ---
Demographics + + + | Address | [address] | | | [place] [address] | + + + | Home Phone | | + + + | Preferred Language | Unknown | + + + | Marital Status | Single | + + + | Baptism Affiliation | PEN | + + + | Race | or | + + + | Ethnic Group | Not or | + + + Author + + + | Author | [facility] | + + + | Organization | [facility] | + + + | Address | Unknown | + + + | Phone | Unavailable | + + + Support + + +---------+ + | Name | Relationship | Address | Phone | + + +---------+ + | Kaylie Baig | ECON | Unknown | | + + +---------+ + Care Team Providers + +------+ + | Care Carver And Checkerer Specials Name | Role | Phone | + +------+ + | No Pcp Per Patient | PCP | Unavailable | + +------+ + Encounter Details +--------+ + + + + | Date | Type | Department | Care Team | Description | +--------+ + + + + | 10/12/ | Procedure | Diagnostic Imaging | | | | 2018 | Pass | Services at [facility] | | | | | | [address] | | | | | | [place] Mailcode: | | | | | | [address] [facility] | | | | | | [place], [place] | | | | | | [address] | | | | | | [phone] | | | +--------+ + + + [...]
--- OUTSIDE RECORDS SUMMARY | ~2019-04-04 | XMS | Clinical Summary ---
Demographics + + + | Address | [address] | | | [place] [address] | + + + | Home Phone | | + + + | Preferred Language | Unknown | + + + | Marital Status | Single | + + + | Druze Affiliation | PEN | + + + [...] Team Providers + +------+ + | Care Architectural Practice Manager Name | Role | Phone | + +------+ + | No Pcp Per Patient | PCP | Unavailable | + +------+ + Source Comments SELENA is fully live on both [facility] and [facility] Allergies No Known Allergies Medications + + [...] | / | | MD Magdiel at [facility] | | | | | | /[id number] | | REV LOC | | | | | | 43 | + +------+--------+ +--------+--------+--------+ + + | Description:151mm x 125mm | | FT/Right-Ster | + + + +---+--------+ +---+---+--------+ | Screw Bone 4mm 1.55mm 2.55mm | | Right: | SYNTHES [facility] | | | 04.503 | | Matrixneuro | | Head | | | | .104.0 | | Craniomaxillofacial Titanium | | | | | | 5 / / | | Self Drill Nonsterile - | | | | | | | | [id number]: Qty: 11 | | | | | | | | on 11/05/2017 by Dayami, | | | | | | | | MD Magdiel at [facility] | | | | | | | [...] | | | | | | | [id number]: Qty: | | | | | | | | 1Explanted: Qty: 1 on | | | | | | | | 11/05/2017 at [facility] | | | | | | | [...] | | | + +--------+ +--------+-------+---------+--------+ | CASH ROOM CLERK MEDICAID | CASH ROOM CLERK | xxxxxxxx | 08/28/19 | | | [...] Person | Self | [birth year] | | [address] | | | al/Fam | | 3 | [phone] | [place] [address] | | | taras | | | 6 (Home) | | + +--------+ +--------+ + + | [place] | Third | Self | [birth year] | | [address] | | | Democrat | | [phone] | [phone] | [place] [address] | | | Liabil | | | [...]
--- OUTSIDE RECORDS SUMMARY | ~2019-04-04 | XMS | Encounter Summary ---
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 | | Preoperative Diagnoses: [...] his head was placed in a horseshoe well puller head with his C-collar still | | [...] the incision down to the cranium. Once [place] | | skull was reached circumferentially around the prior incision, a #1 [place] was used | | to subperiosteally dissect [...] for this encounter.Sonal Nunez, | | [id number] [place], [place] | | [id number] Orina, MDJB/MODLDD: 11/05/2017 20:38:01DT: 11/06/2017 | | 00:27:33Job #: [id number] | |HATTIE/DUC | | | | | | /[id number] | + + CT HEAD WO CONTRAST [...] | Operative Note 11/05/2017 7:31 PM Patient: [place] Temple | | | Consent: Prior to [...] Surgeon: Magdiel | | | MD Day[facility] Facilities Mechanical Design Engineer: Rg Aiken MD Pre-op Diagnosis: | | | Right acquired skull defect History of recent epidural pseudomonal | | | abscess under prior cranioplasty Post-op Diagnosis: Same | | | Procedure: Right titanium mesh cranioplasty EBL: 200 mL | | | Fluids: see anesthesia encounter Specimen: none | | | Complications: none Drain: subgaleal JERONIMO to suction | | | Destination: PACU [...] anticoagulation until cleared by neurosurgery - JERONIMO | | | to suction, record outputs - Ancef while drain in - Routine wound | | | care Rg Aiken MD PGY-4 Neurological Surgery Pager | | | [phone] | | + + + CAPILLARY BLOOD [...] [facility] | [address] | [place], [place] | | | [facility] | [address] | [address] | | | TESTS | | | [...] [facility] | [address] | [place], [place] | | | [facility] | [facility] | [address] | | | TESTS | | | [...] Note | + + | Service Account, Edúkame Res In Interface - 11/05/2017 11:31 AM [...] | + + + + + | [facility] | [address] | [place] [address] | | | SERVICES, CORE | VILMA [...] [facility] | [address] | [place] [address] | | | SERVICES, CORE | [address] [...] | | | LABORATORY | | | HAITIAN | | | SERVICES, | | | [...] the MDRD equation recommended by the | [facility] | | National Kidney Disease Education Program. [...] + + | [facility] | [address] [facility] | [place] [address] | | | SERVICES, CORE | [address] [...] valves (2.5 - 3.5) INR APTT | ELIN, CORE | | Therapeutic Range: (75 - 120) sec | | | Heparin levels of 0.35 - 0.7 U/mL | | + + + + + + + + | Performing | Address | City/State/Zipcode | Phone Number | | Organization | | | | + + + + + | [facility] | [address] [facility] | [place] [address] | | | ELIN, NATALEE | [address] [...] + + + + | PRODUCT | [id number] | | [facility] | | | UNIT [...] + + + + | EXPIRATION | [id number] | | [facility] | | | DATE [...] + + + + | BLOOD | [id number] | | [facility] | | | PRODUCT [...] | + + + + + | [facility] | [address] | [place] [address] | | | SERVICES, | [address] [...] + + + + | PRODUCT | [id number] | | [facility] | | | UNIT [...] + + + + | EXPIRATION | [id number] | | [facility] | | | DATE [...] + + + + | BLOOD | [id number] | | [facility] | | | PRODUCT [...] | + + + + + | [facility] | [address] | [place] [address] | | | SERVICES, | [address] [...] [facility] | [address] | [place] [address] | | | NATALEE WORTHINGTON | VILMA [...] [facility] | [address] | [place] [address] | | | SERVICES, | [address] [...] | + + + + + | [facility] | [address] | [place] [address] | | | SERVICES, | [address] [...] | + + + + + | [facility] | [address] | [place] [address] | | | SERVICES, CORE | [address] | | | + + + + + 12 LEAD ECG (11/04/2017 8:35 AM PDT) + + + + + + | Component | Value | Ref Range | Performed | Pathologist | | | | | At | Signature | + + + + + + | VENTRICULAR | 71 | bpm | [facility] | | [...] + + + + + + | QTCB | 442 | ms | [facility] [...] + + | [facility] | [address] | [place], [place] | | | CARDIOLOGY | [address] | [address] | | + + + + + [...] | + + + + + | [facility] | [address] | [place] [address] | | | SERVICES, CORE | VILMA [...] | + + + + + | [facility] | [address] | [place] [address] | | | SERVICES, CORE | [address] | | | + + + + + PREALBUMIN (11/04/2017 5:59 AM PDT) + +-------+ + + + | Component | Value | Ref Range | Performed | Pathologist | | | | | At | Signature | + +-------+ + + + | PREALBUMIN | 25.6 | 17.0 - 42.0 | [facility] - | | | | | mg/dL [...] | + + + + + | [facility] - | [address] | [place] [address] | | | [place] | | | | + + + [...] | Triglyceride Reference Range: Normal: <150 | [facility] | | mg/dL Borderline High: 150-199 mg/dL High: | LABORATORY | | 200-499 mg/dL Very High: >=500 mg/dL | ELIN, NATALEE | + + + + + + + + | Performing | Address | City/State/Zipcode | Phone Number | | Organization | | | | + + + + + | [facility] | [address] [facility] | [place] [address] | | | ELIN, NATALEE | VILMA [...] [facility] | [address] | [place] [address] | | | SERVICES, CORE | VILMA [...] | | | LABORATORY | | | HAITIAN | | | SERVICES, | | | [...] the MDRD equation recommended by the | [facility] | | National Kidney Disease Education Program. Estimated GFR | LABORATORY | | Interpretive Information: <60 mL/min/1.73 sq m | LEIN, CORE | | Chronic Kidney Disease <15 [...] | + + + + + | [facility] | [address] | [place] [address] | | | NATALEE WORTHINGTON | VILMA [...] + + | [facility] | [address] [facility] | [place] [address] | | | NATALEE WORTHINGTON | VIL[address] [...] | + + + + + | [facility] | [address] | [place] [address] | | | SERVICES, CORE | [address] [...] | | | LABORATORY | | | HAITIAN | | | SERVICES, | | | [...] | + + + + + | [facility] | [address] | [place] [address] | | | SERVICES, CORE | [address] | | | + + + + + MAGNESIUM, PLASMA (11/02/2017 6:14 AM PDT) + +-------+ + + + | Component | Value | Ref Range | Performed | Pathologist | | | | | At | Signature | + +-------+ + + + | MAGNESIUM,P | 1.9 | 1.6 - 2.6 mg/dL | [facility] | | | LASMA | | | [...] [facility] | [address] | [place] [address] | | | SERVICES, CORE | [address] [...] | | | LABORATORY | | | HAITIAN | | | SERVICES, | | | [...] | + + + + + | [facility] | [address] [facility] | [place] [address] | | | NATALEE WORTHINGTON | VILMA [...] + + + + + + | QTCB | 441 | ms | [facility] [...] OF | [address] | [place], [place] | | | CARDIOLOGY | [address] | [address] | | + + + + + [...] [facility] | [address] | [place] [address] | | | SERVICES, CORE | [address] [...] | | | LABORATORY | | | HAITIAN | | | SERVICES, | | | [...] the MDRD equation recommended by the | [facility] | | National Kidney Disease [...] + + | Performing | Address | City/State/[facility] | Phone Number | | Organization | | | | + + + + + | [facility] | [address] | [place] [address] | | | ELIN, CORE | VILMA [...] the report as now presented. Final signature: aNvjot | | | MD You 10/31/2017 8:21 [...] + + + + + + | QTCB | 443 | ms | [facility] [...] [facility] | [address] | [place], [place] | | | CARDIOLOGY | [facility] | [address] | | + + + + + [...] | | | LABORATORY | | | HAITIAN | | | SERVICES, | | | [...] | + + + + + | [facility] | [address] | [place] [address] | | | NATALEE WORTHINGTON | VILMA [...] | + + + + + | [facility] | [address] | [place] [address] | | | SERVICES, CORE | [address] [...] [facility] | [address] | [place], [place] | | | [facility] | [address] | [address] | | | TESTS | | | [...] | + + + + + | [facility] | [address] [facility] | [place] [address] | | | NATALEE WORTHINGTON | [address] [...] | | | LABORATORY | | | HAITIAN | | | SERVICES, | | | [...] + | [facility] | [address] | [place] [address] | | | SERVICES, CORE | [address]ARK [...] Service Account, Kostas Casper In Interface - 10/29/2017 12:13 PM PDT [...] [facility] | | | | | [facility] | | | | [...] [facility] | [address] | [place], [place] | | | [facility] | [facility] | [address] | | | TESTS | | | | + + + + + MAGNESIUM, PLASMA (10/29/2017 6:19 AM PDT) + +-------+ + + + | Component | Value | Ref Range | Performed | Pathologist | | | | | At | Signature | + +-------+ + + + | MAGNESIUM,P | 1.9 | 1.6 - 2.6 mg/dL | [facility] | | | LISA | | | [...] [facility] | [address] | [place] [address] | | | SERVICES, CORE | [address]ARK [...] | | | LABORATORY | | | HAITIAN | | | SERVICES, | | | [...] | + + + + + | [facility] | [address] [facility] | [place] [address] | | | NATALEE WORTHINGTON | VILMA [...] [facility] | [address] | [place], [place] | | | [facility] | [address] | [address] | | | TESTS | | | [...] + + + + + + | QTCB | 463 | ms | [facility] [...] DEPT OF | [address] | [place], [place] | | | CARDIOLOGY | [address] | [address] | | + + + + + [...] [facility] | [address] | [place], [place] | | | [facility] | [address] | [address] | | | TESTS | | | [...] - [facility] | [address] | [place] | | | [facility] | [address] | [address] | | | TESTS | | | [...] | + + + + + | [facility] | [address] | [place] [address] | | | SERVICES, CORE | [address] | | | + + + + + PREALBUMIN (10/28/2017 5:29 AM PDT) + + + + + + | Component | Value | Ref Range | Performed | Pathologist | | | | | At | Signature | + + + + + + | PREALBUMIN | 16.5 (L) | 17.0 - 42.0 | [facility] - | | | | | mg/dL [...] | + + + + + | [facility] - | [address] | [place] [address] | | | [place] | | | [...] | + + + + + | [facility] | [address] | [place] [address] | | | SERVICES, CORE | VILMA [...] [facility] | [address] | [place] [address] | | | SERVICES, CORE | [address]ARK [...] | + +---------+ + + + | JULIENI T CMNT | No Hemo | | [facility] | | | | | | LABORATORY | | | | | | SERVICES, | | | | | | CORE | | + +---------+ + + + | JULIENI D CMNT | No Hemo | | [...] | + + + + + | [facility] | [address] | [place] [address] | | | SERVICES, CORE | VILMA [...] | | | LABORATORY | | | HAITIAN | | | SERVICES, | | | [...] | + + + + + | [facility] | [address] | [place] [address] | | | SERVICES, CORE | VILMA [...] | + + + + + | [facility] | [address] | [place] [address] | | | SERVICES, CORE | VILMA [...] (H) | 70 - 99 mg/dL | [facility] - | | | GLUCOSE, [...] [facility] | [address] | [place] | | | [facility] | [address] | [address] | | | TESTS | | | [...] [facility] | [address] | [place], [place] | | | [facility] | [address] | [address] | | | TESTS | | | [...] Service Account, Radiant Res In Interface - 10/28/2017 9:21 AM [...] At | + + + | EXAM: RI CHEST PICC LINE CHECK HISTORY: picc done [...] Interface - 10/27/2017 6:29 PM PDT EXAM: RI CHEST | | PICC LINE CHECK HISTORY: [...] Valverde MD 10/27/2017 6:28 PM Preliminary: Francisco aJvier Valverde MD | | Dictation initiated: Francisco [...] | by: DECLAN LIPSCOMB Authorized by: CHAZ MUNOZ PICC/Midline | | | Insertion Procedure Note Indications:Antibiotics and TPN Procedure | | | location: Unit:13A Room: 4 Providers: Attending name: | | [...] correct | | | patient, procedure, equipment, manager product support and site/side marked as | | | [...] vein. Catheter lot number: | | | [id number] with a length of 55 cm was [...] [facility] | [address] | [place], [place] | | | [facility] | [address] | [address] | | | TESTS | | | [...] + + + + + + | QTCB | 468 | ms | [facility] [...] [facility] | [address] | [place], [place] | | | CARDIOLOGY | [address] | [address] | | + + + + + [...] - [facility] | [address] | [place] | | | [facility] | [address] | [address] | | | TESTS | | | [...] [facility] | [address] | [place] [address] | | | SERVICES, CORE | [address]ARK [...] | | | LABORATORY | | | HAITIAN | | | SERVICES, | | | [...] the MDRD equation recommended by the | [facility] | | National Kidney Disease Education Program. [...] | + + + + + | [facility] | [address] | [place] [address] | | | NATALEE WORTHINGTON | VILMA [...] [facility] | [address] | [place], [place] | | | [facility] | [address] | [address] | | | TESTS | | | [...] [facility] | [address] | [place] | | | [facility] | [address] | [address] | | | TESTS | | | [...] [facility] | [address] | [place] | | | [facility] | [address] | [address] | | | TESTS | | | [...] | + + + + + | [facility] | [address] | [place] [address] | | | SERVICES, NATALEE | VILMA [...] | | | LABORATORY | | | HAITIAN | | | SERVICES, | | | [...] | + + + + + | [facility] | [address] | [place] [address] | | | SERVICES, CORE | [address]ARK [...] [facility] | [address] | [place] | | | [facility] | [address] | [address] | | | TESTS | | | [...] | | | LABORATORY | | | HAITIAN | | | SERVICES, | | | [...] | + + + + + | [facility] | [address] | [place] [address] | | | SERVICES, CORE | VILMA [...] [facility] | [address] | [place] | | | [facility] | [address] | [address] | | | TESTS | | | [...] + + + + + + | QTCB | 439 | ms | [facility] [...] DEPT OF | [address] | [place], [place] | | | CARDIOLOGY | [address] | [address] | | + + + + + [...] P[facility]ET[facility] | [address] | [place], [place] | | | [facility] | [address] | [address] | | | TESTS | | | [...] + + + + + + | QTCB | 458 | ms | [facility] [...] DEPT OF | [address] | [place], [place] | | | CARDIOLOGY | [address] | [address] | | + + + + + [...] | + + + + + | [facility] | [address] | [place] [address] | | | SERVICES, CORE | [address] | | | + + + + + PREALBUMIN (10/24/2017 4:50 PM PDT) + + + + + + | Component | Value | Ref Range | Performed | Pathologist | | | | | At | Signature | + + + + + + | PREALBUMIN | 14.7 (L) | 17.0 - 42.0 | [facility] | | | | | mg/dL | [facility] | | | | [facility] | | + + + + + + + + | Specimen | + + | Blood - Blood | | (substance) | + + + + + + + | Performing | Address | City/State/Zipcode | Phone Number | | Organization | | | | + + + + + | [facility] | [address] | [place] [address] | | | [facility] | | | | + + + [...] [facility] | [address] | [place] [address] | | | SERVICES, NATALEE | VILMA [...] [facility] | [address] | [place] [address] | | | SERVICES, CORE | [address] [...] [facility] | [address] | [place] [address] | | | SERVICES, CORE | PARK [...] | + + + + + | [facility] | [address] | [place] [address] | | | SERVICES, CORE | VILMA [...] [facility] | [address] | [place] [address] | | | SERVICES, CORE | PARK [...] | + + + + + | [facility] | [address] [facility] | [place] [address] | | | SERVICES, CORE | VILMA [...] + +---------+ + + + | [facility] CMNT | No [...] [facility] | [address] | [place] [address] | | | SERVICES, CORE | PARK [...] [facility] | [address] | [place] [address] | | | SERVICES, CORE | PARK [...] | + + + + + | [facility] | [address] | [place] [address] | | | SERVICES, CORE | VILMA [...] | + + + + + | [facility] | [address] | [place] [address] | | | SERVICES, CORE | VILMA [...] | | | LABORATORY | | | HAITIAN | | | SERVICES, | | | [...] | + + + + + | [facility] | [address] [facility] | [place] [address] | | | SERVICES, CORE | [address] | | | + + + + + PICC LINE (10/24/2017 4:01 PM PDT) + + + | Narrative | Performed At | + + + | Farhan Farrell RN 10/24/2017 4:05 PM PICC LINE Performed | | | by: FARHAN FARRELL Authorized by: CHAZ MUNOZ PICC/Sugar | | | Insertion Procedure Note [...] | | | correct patient, procedure, equipment, manager product support and site/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 Catheter lot number: [id number] with a length of 55 | | [...] At | + + + | EXAM: RI CHEST 1 VIEW HISTORY: PICC placed-pt ready. [...] Interface - 10/24/2017 3:43 PM PDT EXAM: RI CHEST 1 | | VIEW HISTORY: PICC [...] 96 | 70 - 99 mg/dL | [facility] [...] [facility] | [address] | [place], [place] | | | [facility] | [facility] | [address] | | | TESTS | | | | + + + + + PROCEDURE NOTE (10/24/2017 12:06 PM PDT) + + + | Narrative | Performed At | + + + | Gunjan Kelly MD 10/24/2017 12:18 PM Operative Note - Trauma | | | Surgery Patient Name: Berlin Temple Date of | | | Surgery: 10/24/2017 Attending : Monster Rucker MD Resident: | | | Gunjan Kelly MD Preoperative Diagnosis: Gastrostomy tube | | | dysfunction Need for nutritional support Postoperative Diagnosis: | | | Gastrostomy tube displacement Presence of new gastrostomy tube | | | Need for nutritional support Procedure: 1. Esophagogastroscopy | | | 2. PEG Indications: Berlin Temple is a 67 y.o. male with | | | complex surgical history following traumatic injury. There was | | | concern that medication being given via his extant PEG was coming | | | back out his JERONIMO drain, prompting further evaluation. He was | [...] | | None Lines: New: PEG Old: JERONIMO, PIVs Drains: None new | | | [...] time Binder to remain | | | JERONIMO to remain No changes to abx plan Gunjan Kelly MD | | | Surgical Critical Care, PGY7 Pager: [phone] | | + + + CAPILLARY BLOOD [...] [facility] | [address] | [place] | | | [facility] | [address] | [address] | | | TESTS | | | [...] + | [facility] | [address] | [place], [place] | | | [facility] | [address] | [address] | | | TESTS | | | [...] | | | LABORATORY | | | HAITIAN | | | SERVICES, | | | [...] the MDRD equation recommended by the | [facility] | | National Kidney Disease [...] | + + + + + | [facility] | [address] | [place] [address] | | | SERVICES, CORE | [address] | | | + + + + + MAGNESIUM, PLASMA (10/24/2017 5:08 AM PDT) + +-------+ + + + | Component | Value | Ref Range | Performed | Pathologist | | | | | At | Signature | + +-------+ + + + | MAGNESIUM,P | 1.7 | 1.6 - 2.6 mg/dL | [facility] | | | LISA | | | [...] [facility] | [address] | [place] [address] | | | ELIN, NATALEE | [address] [...] [facility] | [address] | [place], [place] | | | [facility] | [address] | [address] | | | TESTS | | | [...] effect October 10, | [facility] | | 2017. New reference ranges for MCV, MCHC, PLT, [...] + + | [facility] | [address] [facility] | [place] [address] | | | SERVICES, CORE | [address] [...] | | | LABORATORY | | | HAITIAN | | | SERVICES, | | | [...] | + + + + + | [facility] | [address] [facility] | [place] [address] | | | NATALEE WORTHINGTON | [address] [...] + + + + + + | QTCB | 452 | ms | [facility] [...] DEPT OF | [address] | [place], [place] | | | CARDIOLOGY | [address] | [address] | | + + + + + IR GASTROSTOMY TUBE EXCHANGE (10/22/2017 2:42 PM PDT) + + | Specimen | + + | | + + + + + | Narrative | Performed At | + + + | Procedure: Gastrostomy tube exchange Primary attending | [facility] | | advertising operations manager: Shade Goodwin M.D. Preoperative diagnosis: | RADIOLOGY VOICE | | Malfunctioning Gastrostomy tube Postoperative diagnosis: Same | RECOGNITION | | Operations: Operation 1. Removal of existing Gastrostomy tube | | | over a guide wire Operation 2. Placement of 24 Nicaraguan GABRIEL | | | gastrostomy over guide [...] a stiff glide wire the new 24 Nicaraguan gastrostomy tube was | | | inserted. [...] Procedure: | | Gastrostomy tube exchangePrimary attending advertising operations manager: Shade Goodwin, | | BrynPreoperative diagnosis: Malfunctioning Gastrostomy tubePostoperative diagnosis: | | SameOperations:Operation 1. Removal of existing Gastrostomy tube over a guide | | wireOperation 2. Placement of 24 Nicaraguan GABRIEL gastrostomy over guide wireNo sedation was [...] glide wire the | | new 24 Nicaraguan gastrostomy tube was inserted. The position of [...] stiff g lide wire the new 24 Nicaraguan | |gastrostomy tube was inserted. The position [...] new gastrostomy tube although the disk of brice david old gastrostomy tube was positioned at 8 [...] Note | + + | Service Account, Edúkame Res In Interface - 10/22/2017 10:34 AM PDT [...] + + + + + + | QTCB | 448 | ms | [facility] [...] + + | [facility] | [address] | [place], [place] | | | CARDIOLOGY | [address] | [address] | | + + + + + [...] | | PERITONEUM: An anterior abdominal surgical JERONIMO drain is in place within | | [...] antrum with JERONIMO drain in | | | place. This [...] MCHC, PLT, IG% and IG# effective | [facility] | | 09/05/2017 | LABORATORY | | | NATALEE [place]TH[place] | + + + + + + + + | Performing | Address | City/State/Zipcode | Phone Number | | Organization | | | | + + + + + | [facility] | [address] | [place] [address] | | | NATALEE WORTHINGTON | [address] [...] | | | LABORATORY | | | HAITIAN | | | SERVICES, | | | [...] the MDRD equation recommended by the | [facility] | | National Kidney Disease Education Program. [...] | + + + + + | [facility] | [address] | [place] [address] | | | SERVICES, CORE | [address] [...] + + + + + + | QTCB | 454 | ms | [facility] [...] DEPT OF | [address] | [place], [place] | | | CARDIOLOGY | [address] | [address] | | + + + + + [...] | | | LABORATORY | | | HAITIAN | | | SERVICES, | | | [...] | + + + + + | [facility] | [address] | [place] [address] | | | SERVICES, CORE | [address] [...] | + + + + + | [facility] | [address] | [place] [address] | | | SERVICES, CORE | [address] | | | + + + + + 12 LEAD ECG (10/19/2017 12:23 PM PDT) + + + + + + | Component | Value | Ref Range | Performed | Pathologist | | | | | At | Signature | + + + + + + | VENTRICULAR | 53 | bpm | [facility] | | [...] + + + + + + | QTCB | 438 | ms | [facility] [...] GE[facility] OF | [address] | [place], [place] | | | CARDIOLOGY | [address] | [address] | | + + + + + [...] | + + + + + | [facility] | [address] [facility] | [place] [address] | | | SERVICES, CORE | [address] [...] | | | LABORATORY | | | HAITIAN | | | SERVICES, | | | [...] | + + + + + | [facility] | [address] | [place] [address] | | | SERVICES, CORE | [address] [...] + + + + + + | QTCB | 459 | ms | [facility] DE[facility] [...] + | [facility] | [address] [facility] | [place], [place] | | | CARDIOLOGY | [address] | [address] | | + + + + + [...] | | | LABORATORY | | | HAITIAN | | | SERVICES, | | | [...] | + + + + + | [facility] | [address] [facility] | [place] [address] | | | SERVICES, CORE | [address] [...] | + + + + + | [facility] | [address] | [place] [address] | | | SERVICES, CORE | [address] | | | + + + + + 12 LEAD ECG (10/16/2017 11:23 AM PDT) + + + + + + | Component | Value | Ref Range | Performed | Pathologist | | | | | At | Signature | + + + + + + | VENTRICULAR | 63 | bpm | [facility] | | | RATE [...] + + + + + + | QTCB | 476 | ms | [facility] [...] DEPT OF | [address] | [place], [place] | | | CARDIOLOGY | [address] | [address] | | + + + + + [...] | | | LABORATORY | | | HAITIAN | | | SERVICES, | | | [...] [facility] | [address] | [place] [address] | | | SERVICES, CORE | [address] [...] | + + + + + | [facility] | [address] | [place] [address] | | | SERVICES, CORE | [address] [...] + + + + + + | QTCB | 458 | ms | [facility] DE[facility] [...] OF | [address] | [place], [place] | | | CARDIOLOGY | [address] | [address] | | + + + + + [...] [facility] | [address] | [place] | | | [facility] CARE | [address] | [address] | | | TESTS | | | [...] [facility] | [address] | [place] [address] | | | NATALEE WORTHINGTON | [address] [...] [facility] | [address] | [place] | | | [facility] | [address] | [address] | | | TESTS | | | [...] + + + + + + | QTCB | 454 | ms | [facility] DEPT [...] + + | [facility] | [address] | [place], [place] | | | CARDIOLOGY | [address] | [address] | | + + + + + [...] [facility] | [address] | [place] [address] | | | NATALEE WORTHINGTON | [address] [...] | | | LABORATORY | | | HAITIAN | | | SERVICES, | | | [...] | + + + + + | [facility] | [address] | [place] [address] | | | NATALEE WORTH[place] | [address] [...] | Reference range change effective 8/15/17. | [facility] | | | LABORATORY | | | SERVICES, CORE | + + + + + + + + | Performing | Address | City/State/Zipcode | Phone Number | | Organization | | | | + + + + + | [facility] | [address] | [place] [address] | | | NATALEE WORTHINGTON | [address] [...] [facility] | [address] | [place] | | | [facility] | [address] | [address] | | | TESTS | | | [...] [facility] | [address] | [place] | | | [facility] | [facility] | [address] | | | TESTS | | | [...] | + + + + + | [facility] | [address] | [place] [address] | | | SERVICES, NATALEE | [address] [...] | | | LABORATORY | | | HAITIAN | | | SERVICES, | | | [...] | + + + + + | [facility] | [address] | [place] [address] | | | SERVICES, NATALEE | [address] | | | + + + + + OPERATION RECORD (10/12/2017 8:50 PM PDT) + + | Procedure Note | + + | Pilar Cotto MD - 10/12/2017 8:50 PM PDT Date of Service: 10/12/2017 | | Attending Surgeon: Chaz Munoz MD Facilities Mechanical Design Engineer(s): Randell Dixon M.D., | | fellow. George [...] saline. We then | | placed a 19-Nicaraguan drain deep into the abscess cavity, tracking [...] 10/12/2017 19:50:06DT: 10/12/2017 20:50:54Job #: | | [id number] | + + X-RAY PORTABLE CHEST 1 VIEW (10/12/2017 7:50 PM PDT) + + | Specimen | + + | | + + + + + | Narrative | Performed At | + + + | EXAM: RI CHEST 1 VIEW HISTORY: Evaluate endotracheal tube [...] Note | + + | Service Account, Edúkame Res In Interface - 10/13/2017 9:04 AM PDT EXAM: RI CHEST 1 | | VIEW HISTORY: Evaluate [...] R2 | | | Attending Physician: Chaz Munoz MD Assistants: Randell Dixon MD | | [...] abscess cavity) Disposition: ICU | | | Rees: Continue Diet: TF pending clinical stability [...] [facility] | [address] | [place], [place] | | | [facility] | [address] | [address] | | | TESTS | | | [...] report as now presented. Final signature: Mason Dumont | | | MD Daniel 10/12/2017 [...] the trauma service on 10/12/2017 9:30 AM b y Dae Izaguirre MD. | | | |I [...] [facility] | [address] | [place] [address] | | | SERVICES, CORE | [address] [...] | | | LABORATORY | | | HAITIAN | | | SERVICES, | | | [...] the MDRD equation recommended by the | [facility] | | National Kidney Disease [...] [facility] | [address] | [place] [address] | | | SERVICES, CORE | P[address] [...] | + + + + + | [facility] | [address] | [place] [address] | | | SERVICES, NATALEE | [address] [...] + + + + + + | QTCB | 489 | ms | [facility] DE[facility] [...] DEPT OF | [address] | [place], [place] | | | CARDIOLOGY | [address] | [address] | | + + + + + [...] + + + + + + | QTCB | 477 | ms | [facility] DE[facility] [...] DEPT OF | [address] | [place], [place] | | | CARDIOLOGY | [address] | [address] | | + + + + + [...] [facility] | [address] | [place] [address] | | | SERVICES, CORE | [address] [...] [facility] | [address] | [place] [address] | | | SERVICES, CORE | [address] [...] | | | LABORATORY | | | HAITIAN | | | SERVICES, | | | [...] | + + + + + | [facility] | [address] [facility] | [place] [address] | | | NATALEE WORTHINGTON | [address] | | | + + + + + PROCEDURE NOTE (10/10/2017 10:00 PM PDT) + + + | Narrative | Performed At | + + + | Darius Link MD 10/12/2017 11:11 AM OPERATIVE REPORT | | | DATE OF OPERATION: 10/10/2017 ATTENDING SURGEON: 1. Dr. Munoz | | | WHITE SHOE EXAMINER: 1. Darius Link MD INDICATIONS: Dysphagia | | | and need for retirement nutrition access PREOPERATIVE DIAGNOSIS: | | | 1.Dysphagia and need for retirement nutrition access | | | POSTOPERATIVE DIAGNOSIS: [...] | | MD Nikolay Attending Physician: Dr. Munoz Assistants: Darius | | | Nikolay At [...] At | + + + | Cecilia Hernandez MD 10/10/2017 10:26 AM INPATIENT BRIEF | | | OPERATIVE NOTE Procedure Date: 10/10/2017 Author: CECILIA | | | MD MANUEL Attending Physician: Magdiel Stock MD Assistants: | | | Arben Hernandez MD Prior to the beginning [...] | | | Complications: none Drains: subgaleal JERONIMO drain to suction | | | Disposition: direct to ICU Findings: Substantial purulence | | | under pressure after bone flap removed. Multiple culture swabs sent | | | of subgaleal space and epidural pus. Bone flap removed and sent to | | | micro. Skin closed with interrupted nylons. Dictation to | | | [place] [id number] Chief Resident | | | Neurosurgery | [...] + + | [facility] | [address] [facility] | [place] [address] | | | SERVICES, CORE | [address] [...] | | | LABORATORY | | | HAITIAN | | | SERVICES, | | | [...] | + + + + + | [facility] | [address] | [place] [address] | | | SERVICES, CORE | [address] | | | + + + + + MAGNESIUM, PLASMA (10/10/2017 2:02 PM PDT) + +-------+ + + + | Component | Value | Ref Range | Performed | Pathologist | | | | | At | Signature | + +-------+ + + + | MAGNESIUM,P | 1.9 | 1.6 - 2.6 mg/dL | [facility] [...] [facility] | [address] | [place] [address] | | | ELIN, NATALEE | [address] | | | + + + + + OPERATION RECORD (10/10/2017 12:40 PM PDT) + + | Procedure Note | + + | Magdiel Stock MD - 10/10/2017 12:40 PM PDT Date of Service: 10/10/2017 Attending | | Surgeon: Magdiel Stock MD Facilities Mechanical Design Engineer(s): Cecilia Hernandez, | | . Preoperative Diagnoses: [...] was also sent.Complications: None.Drains: | | Subgaleal JERONIOM drain to suction.Disposition: Direct to the neurologic [...] This is a 67-year-old male. Please see [facility] for full details. He | | [...] film, which was removed with mari and Suasn 1. We also used a | | [...] | the note for this encounter.Sonal Nunez MDWADANIELLE [id number] [facility] | | [place] [phone] Orina, MDFA/MODLDD: | | 10/10/2017 11:52:15DT: 10/10/2017 12:40:41Job #: [id number] | | | | | |I was present for the critical portions of the procedure as described in the note for this encounter. | | | |Magdiel Stock MD | | | |Magdiel Stock MD | |[address] | |[address] [facility] | |[facility] | |[place] [address] | |[phone] | | | | | |Magdiel Stock MD | |FA/MODL | | | | | | /[id number] | + + X-RAY ABDOMEN 1 VIEW [...] | CULTURE | Pseudomonas aeruginosa | | [facility] - | | | RESULT | (A) [...] 1+ Pseudomonas aeruginosa No anaerobic organisms | [facility] - | | isolated Gram Stain: No [...] | + + + + + | [facility] - | [address] | [place] [address] | | | [facility] [...] No fungus isolated at 3 weeks. | [facility] - | | | [facility] - | | | [place] | + + + + + + + + | Performing | Address | City/State/Zipcode | Phone Number | | Organization | | | | + + + + + | [facility] | [address] | [place] [address] | | | [place] | | | | + + + + + CULTURE, WOUND DEEP W/ ANAEROBE (10/10/2017 9:00 AM PDT) + + + + + + | Component | Value | Ref Range | Performed | Pathologist | | | | | At | Signature | + + + + + + | CULTURE | Pseudomonas aeruginosa | | [facility] - | | | RESULT | (A) [...] | + + + + + | [facility] | [address] | [place] [address] | | | [place] | | | [...] bacteria isolated at 6 weeks. AFB | [facility] - | | Smear: AFB not detected | [facility] - | | | [place] | + + + + + + + + | Performing | Address | City/State/Zipcode | Phone Number | | Organization | | | | + + + + + | [facility] | [address] | [place] [address] | | | [place] | | | | + + + + + CULTURE, FUNGAL EXCEPT BLOOD, SKIN, HAIR, NAIL (10/10/2017 9:00 AM PDT) + + | Specimen | + + | Swab - Head | | structure (body | | structure) | + + + + + | Narrative | Performed At | + + + | Culture Report: No fungus isolated at 3 weeks. | [facility] | | | [facility] - | | | [place] | + + + + + + + + | Performing | Address | City/State/Zipcode | Phone Number | | Organization | | | | + + + + + | [facility] | [address] | [place] [address] | | | [place] | | | | + + + + + CULTURE, WOUND DEEP W/ ANAEROBE (10/10/2017 9:00 AM PDT) + + + + + + | Component | Value | Ref Range | Performed | Pathologist | | | | | At | Signature | + + + + + + | CULTURE | Pseudomonas aeruginosa | | [facility] - | | | RESULT | (A) [...] Rare Pseudomonas aeruginosa Refer to culture | [facility] - | | collected 10/10/17 at 0903 [...] | + + + + + | [facility] | [address] | [place] [address] | | | [place] | | | [...] bacteria isolated at 6 weeks. AFB | [facility] - | | Smear: AFB not detected | [facility] - | | | [place] | + + + + + + + + | Performing | Address | City/State/Zipcode | Phone Number | | Organization | | | | + + + + + | [facility] | [address] | [place] [address] | | | [place] | | | | + + + + + CULTURE, TISSUE (10/10/2017 8:50 AM PDT) + + + + + + | Component | Value | Ref Range | Performed | Pathologist | | | | | At | Signature | + + + + + + | CULTURE | Pseudomonas aeruginosa | | [facility] - | | | RESULT | (A) [...] Rare Pseudomonas aeruginosa Refer to culture | [facility] - | | collected 10/10/17 at 0903 [...] | + + + + + | [facility] | [address] | [place] [address] | | | [facility] [...] No growth No anaerobic organisms isolated | [facility] - | | Gram Stain: No squamous epithelial cells No polymorphonuclear | [facility] - | | cells No organisms seen | [place] | + + + + + + + + | Performing | Address | City/State/Zipcode | Phone Number | | Organization | | | | + + + + + | [facility] | [address] | [place] [address] | | | [facility] [...] No fungus isolated at 3 weeks. | [facility] - | | | [facility] - | | | [place] | + + + + + + + + | Performing | Address | City/State/Zipcode | Phone Number | | Organization | | | | + + + + + | [facility] | [address] | [place] [address] | | | [place] | | | | + + + + + CULTURE, WOUND DEEP W/ ANAEROBE (10/10/2017 8:38 AM PDT) + + + + + + | Component | Value | Ref Range | Performed | Pathologist | | | | | At | Signature | + + + + + + | CULTURE | Pseudomonas aeruginosa | | [facility] - | | | RESULT | (A) [...] 1+ Pseudomonas aeruginosa Refer to culture | [facility] - | | collected 10/10/17 at 0903 [...] | + + + + + | [facility] - | [address] | [place] [address] | | | [place] | | | [...] | + + + + + | [facility] - | [address] | [place] [address] | | | [place] | | | [...] No fungus isolated at 3 weeks. | [facility] - | | | [facility] - | | | [place] | + + + + + + + + | Performing | Address | City/State/Zipcode | Phone Number | | Organization | | | | + + + + + | [facility] | [address] | [place] [address] | | | [place] | | | | + + + + + CULTURE, WOUND DEEP W/ ANAEROBE (10/10/2017 8:38 AM PDT) + + + + + + | Component | Value | Ref Range | Performed | Pathologist | | | | | At | Signature | + + + + + + | CULTURE | Pseudomonas aeruginosa | | [facility] - | | | RESULT | (A) [...] 1+ Pseudomonas aeruginosa Refer to culture | [facility] - | | collected 10/10/17 at 0903 for susceptibilities No anaerobic | [facility] - | | organisms isolated Gram Stain: No squamous epithelial cells | [place] | | Moderate polymorphonuclear cells No organisms seen | | + + + + + + + + | Performing | Address | City/State/Zipcode | Phone Number | | Organization | | | | + + + + + | [facility] | [address] | [place] [address] | | | [place] | | | [...] bacteria isolated at 6 weeks. AFB | [facility] - | | Smear: AFB not detected | [facility] - | | | [place] | + + + + + + + + | Performing | Address | City/State/Zipcode | Phone Number | | Organization | | | | + + + + + | [facility] | [address] | [place] [address] | | | [place] | | | | + + + + + CULTURE, FUNGAL EXCEPT BLOOD, SKIN, HAIR, NAIL (10/10/2017 8:31 AM PDT) + + | Specimen | + + | Swab - Head | | structure (body | | structure) | + + + + + | Narrative | Performed At | + + + | Culture Report: No fungus isolated at 3 weeks. | [facility] | | | [facility] - | | | [place] | + + + + + + + + | Performing | Address | City/State/Zipcode | Phone Number | | Organization | | | | + + + + + | [facility] | [address] | [place] [address] | | | [place] | | | | + + + + + CULTURE, WOUND DEEP W/ ANAEROBE (10/10/2017 8:31 AM PDT) + + + + + + | Component | Value | Ref Range | Performed | Pathologist | | | | | At | Signature | + + + + + + | CULTURE | Pseudomonas aeruginosa | | [facility] - | | | RESULT | (A) [...] 1+ Pseudomonas aeruginosa Refer to culture | [facility] - | | collected 10/10/17 at 0903 [...] | + + + + + | [facility] | [address] | [place] [address] | | | [place] | | | [...] bacteria isolated at 6 weeks. AFB | [facility] - | | Smear: AFB not detected | [facility] - | | | [place] | + + + + + + + + | Performing | Address | City/State/Zipcode | Phone Number | | Organization | | | | + + + + + | [facility] | [address] | [place] [address] | | | [place] | | | | + + + [...] | + + + + + | [facility] | [address] | [place] [address] | | | SERVICES, CORE | PARK [...] [facility] | [address] | [place] [address] | | | NATALEE [place] | [address] [...] | + + + + + | [facility] | [address] | [place] [address] | | | SERVICES, NATALEE | PARK [...] | | | LABORATORY | | | HAITIAN | | | SERVICES, | | | [...] | + + + + + | [facility] | [address] | [place] [address] | | | SERVICES, CORE | PARK [...] + + + + + + | QTCB | 493 | ms | [facility] [...] + + | [facility] | [address] | [place], [place] | | | CARDIOLOGY | [address] | [address] | | + + + + + [...] + + + + | PRODUCT | [id number] | | [facility] | | | UNIT [...] + + + + | EXPIRATION | [id number] | | [facility] | | | DATE [...] + + + + | BLOOD | [id number] | | [facility] | | | PRODUCT [...] [facility] | [address] | [place] [address] | | | SERVICES, | [address] [...] + + + + | PRODUCT | [id number] | | [facility] | | | UNIT [...] + + + + | EXPIRATION | [id number] | | [facility] | | | DATE [...] + + + + | BLOOD | [id number] | | [facility] | | | PRODUCT [...] [facility] | [address] | [place] [address] | | | SERVICES, | [address] [...] [facility] | [address] | [place] [address] | | | SERVICES, | [address] [...] | + + + + + | [facility] | [address] | [place] [address] | | | SERVICES, | [address] [...] | + + + + + | [facility] | [address] | [place] [address] | | | SERVICES, | [address] [...] valves (2.5 - 3.5) INR APTT | NATALEE WORTHINGTON | | Therapeutic Range: (75 - 120) sec | | | Heparin levels of 0.35 - 0.7 U/mL | | + + + + + + + + | Performing | Address | City/State/Zipcode | Phone Number | | Organization | | | | + + + + + | [facility] | [address] | [place] [address] | | | NATALEE WORTHINGTON | VILMA [...] + + + + + + | QTCB | 457 | ms | [facility] DE[facility] [...] DEPT OF | [address] | [place], [place] | | | CARDIOLOGY | [address] | [address] | | + + + + + [...] Service Account, Kostas Res In Interface - 10/08/2017 10:47 AM [...] | [facility] | [address] | [place], [place] | | | [facility] | [address] | [address] | | | TESTS | | | [...] | + + + + + | [facility] | [address] | [place] [address] | | | SERVICES, CORE | PARK [...] [facility] | [address] | [place] [address] | | | SERVICES, CORE | PARK [...] | | | LABORATORY | | | HAITIAN | | | SERVICES, | | | [...] the MDRD equation recommended by the | [facility] | | National Kidney Disease Education Program. [...] | + + + + + | [facility] | [address] | [place] [address] | | | ELIN, NATALEE | VILMA [...] (H) | 70 - 99 mg/dL | [facility] - | | | GLUCOSE, [...] [facility] | [address] | [place], [place] | | | [facility] | [address] | [address] | | | TESTS | | | [...] [facility] | [address] | [place], [place] | | | [facility] GE[facility]O OF [facility] | [address] | [address] | | | TESTS | | | [...] [facility] | [address] | [place], [place] | | | [facility] | [facility] | [address] | | | TESTS | | | [...] (H) | 70 - 99 mg/dL | [facility] - | | | GLUCOSE, | | | [facility] | | | POC | | | LGORIA GENAO | | | | | | [...] [facility] | [address] | [place], [place] | | | [facility] | [address] | [address] | | | TESTS | | | [...] [facility] | [address] | [place], [place] | | | [facility] | [address] | [address] | | | TESTS | | | [...] | + + + + + | [facility] | [address] | [place] [address] | | | SERVICES, CORE | PARK [...] [facility] | [address] | [place] [address] | | | SERVICES, NATALEE | VILMA [...] | | | LABORATORY | | | HAITIAN | | | SERVICES, | | | [...] | + + + + + | [facility] | [address] [facility] | [place] [address] | | | SERVICES, CORE | VILMA [...] [facility] | [address] | [place] | | | [facility] | [address] | [address] | | | TESTS | | | [...] (H) | 70 - 99 mg/dL | [facility] - | | | GLUCOSE, | | [...] - [facility] | [address] | [place], [place] | | | [facility] | [address] | [address] | | | TESTS | | | [...] + + + + + + | QTCB | 427 | ms | [facility] DEPT [...] DEPT OF | [address] | [place], [place] | | | CARDIOLOGY | [address] | [address] | | + + + + + [...] [facility] | [address] | [place], [place] | | | [facility] | [address] | [address] | | | TESTS | | | [...] | + + + + + | [facility] | [address] | [place] [address] | | | SERVICES, CORE | [address] | | | + + + + + MAGNESIUM, PLASMA (10/06/2017 7:25 AM PDT) + +-------+ + + + | Component | Value | Ref Range | Performed | Pathologist | | | | | At | Signature | + +-------+ + + + | MAGNESIUM,P | 2.0 | 1.6 - 2.6 mg/dL | [facility] | | | LASMA | | | [...] [facility] | [address] | [place] [address] | | | ELIN, NATALEE | VILMA [...] | | | LABORATORY | | | HAITIAN | | | SERVICES, | | | [...] | + + + + + | [facility] | [address] | [place] [address] | | | SERVICES, NATALEE | VILMA [...] [facility] | [address] | [place], [place] | | | [facility] | [facility] | [address] | | | TESTS | | | [...] [facility] | [address] | [place], [place] | | | [facility] | [address] | [address] | | | TESTS | | | [...] [facility] | [address] | [place] | | | [facility] | [facility] | [address] | | | TESTS | | | [...] - [facility] | [address] | [place] | | | [facility] | [address] | [address] | | | TESTS | | | [...] + + + + + + | QTCB | 441 | ms | [facility] DEPT [...] DEPT OF | [address] | [place], [place] | | | CARDIOLOGY | [address] | [address] | | + + + + + [...] | + + + + + | [facility] | [address] | [place] [address] | | | NATALEE WORTHINGTON | VILMA [...] | + + + + + | [facility] | [address] | [place] [address] | | | SERVICES, NATALEE | VILMA [...] | | | LABORATORY | | | HAITIAN | | | SERVICES, | | | [...] | + + + + + | [facility] | [address] | [place] [address] | | | SERVICES, CORE | VILMA [...] [facility] | [address] | [place], [place] | | | [facility]IA GNE[facility] | [address] | [address] | | | TESTS | | | [...] [facility] | [address] | [place] | | | [facility] | [facility] | [address] | | | TESTS | | | [...] (H) | 70 - 99 mg/dL | [facility] - | | | GLUCOSE, [...] [facility] | [address] | [place] | | | [facility] | [address] | [address] | | | TESTS | | | [...] [facility] | [address] | [place], [place] | | | [facility] | [address] | [address] | | | TESTS | | | [...] - [facility] | [address] | [place], [place] | | | [facility] | [facility] | [address] | | | TESTS | | | [...] | + + + + + | [facility] | [address] [facility] | [place] [address] | | | SERVICES, CORE | VILMA [...] LABORATORY | [address] | [place] [address] | | | SERVICES, CORE | PARK [...] (H) | 70 - 99 mg/dL | [facility] | | | PLASMA | | | [...] | | | LABORATORY | | | HAITIAN | | | SERVICES, | | | [...] the MDRD equation recommended by the | [facility] | | National Kidney Disease [...] | + + + + + | [facility] | [address] [facility] | [place] [address] | | | SERVICES, CORE | PARK [...] [facility] | [address] | [place] | | | [facility] | [facility] | [address] | | | TESTS | | | [...] [facility] | [address] | [place] | | | [facility] | [address] | [address] | | | TESTS | | | [...] [facility] | [address] | [place] [address] | | | SERVICES, CORE | PARK [...] by | | | | | | [employer],[address] | | | | | | Rogelio Pickard, [facility] [place] | | | | | | [address] | | | | | | [phone].[employer]. | | | | | | Gui [...] [facility] | [address] | [place], [place] | | | [facility] | | [address] | | + + + + + [...] | + + + + + | [facility] | [address] | [place] [address] | | | SERVICES, CORE | VILMA [...] | + + + + + | [facility] | [address] | [place] [address] | | | SERVICES, CORE | [address] | | | + + + + + HIV-1,2 AB/HIV-1 P24 AG ALTAF (10/03/2017 3:36 PM PDT) + + + [...] modified from | [facility] | | original sample supervisor's approved specifications. The performance | LABORATORY | | of the HEALTH DATA ADMINISTRATOR HIV Combo test, with or without confirmation, was not | SERVICES, | | tested in pediatric patients less than 2 years of age. [facility] | SPECIAL IMM + | | guidelines [...] | + + + + + | [facility] | [address] | [place] [address] | | | SERVICES, SPECIAL | VILMA [...] [facility] | [address] | [place] | | | [facility] | [address] | [address] | | | TESTS | | | [...] [facility] | [address] | [place], [place] | | | [facility] | [address] | [address] | | | TESTS | | | [...] [facility] | [address] | [place] [address] | | | SERVICES, NATALEE | VILMA [...] | + + + + + | [facility] | [address] [facility] | [place] [address] | | | SERVICES, CORE | PARK [...] | | | LABORATORY | | | HAITIAN | | | SERVICES, | | | [...] the MDRD equation recommended by the | [facility] | | National Kidney Disease [...] | + + + + + | [facility] | [address] | [place] [address] | | | SERVICES, CORE | VILMA [...] 96 | 70 - 99 mg/dL | [facility] - | | | GLUCOSE, [...] [facility] | [address] | [place] | | | [facility] | [address] | [address] | | | TESTS | | | [...] Preliminary: Master Watson MD Dictation initiated: Master Snyder | | | MD Walter 10/03/2017 8:28 [...] - [facility] | [address] | [place], [place] | | | [facility] | [address] | [address] | | | TESTS | | | [...] + + + + + + | QTCB | 484 | ms | [facility] DEPT [...] DEPT OF | [address] | [place], [place] | | | CARDIOLOGY | [address] | [address] | | + + + + + [...] At | + + + | EXAM: RI CHEST 1 VIEW HISTORY: Evaluate PICC placement [...] Note | + + | Service Account, Patient Engagement Systems In Interface - 10/02/2017 2:07 PM PDT EXAM: RI CHEST 1 | | VIEW HISTORY: Evaluate [...] |Preliminary: Marcelo Morley MD | |Dictation initiated: aMrcelo Morley MD 10/02/2017 2:04 PM | + [...] + + + + | [facility] | [address] | [place], [place] | | | [facility] | [address] | [address] | | | TESTS | | | | + + + + + X-RAY PORTABLE CHEST 1 VIEW (10/02/2017 8:56 AM PDT) + + | Specimen | + + | | + + + + + | Narrative | Performed At | + + + | EXAM: RI CHEST 1 VIEW HISTORY: new leukocytosis, eval [...] Morley MD Dictation initiated: Marcelo Morley MD 10/02/2017 10:20 AM | | + + + + + | Procedure Note | + + | Nette Galeas, Radiant Res In Interface - 10/02/2017 10:27 AM PDT EXAM: RI CHEST 1 | | VIEW HISTORY: new [...] [facility] | [address] | [place], [place] | | | [facility] | [address] | [address] | | | TESTS | | | [...] [facility] | [address] | [place] [address] | | | NATALEE WORTHINGTON | VILMA [...] | + + + + + | [facility] | [address] [facility] | [place] [address] | | | NATALEE WORTHINGTON | PARK [...] | | | LABORATORY | | | HAITIAN | | | SERVICES, | | | [...] | + + + + + | [facility] | [address] | [place] [address] | | | SERVICES, CORE | PARK [...] [facility] | [address] | [place] | | | [facility] | [address] | [address] | | | TESTS | | | [...] + | [facility] | [address] | [place], [place] | | | [facility] | [address] | [address] | | | TESTS | | | [...] Note | + + | Service Account, Edúkame Res In Interface - 10/01/2017 2:15 PM [...] [facility] | [address] | [place] | | | [facility] | [address] | [address] | | | TESTS | | | [...] Note | + + | Service Account, Patient Engagement Systems In Interface - 10/01/2017 11:34 AM PDT [...] [facility] | [address] | [place], [place] | | | [facility] | [address] | [address] | | | TESTS | | | [...] | + + + + + | [facility] | [address] | [place] [address] | | | SERVICES, CORE | [address] | | | + + + + + MAGNESIUM, PLASMA (10/01/2017 5:25 AM PDT) + +-------+ + + + | Component | Value | Ref Range | Performed | Pathologist | | | | | At | Signature | + +-------+ + + + | MAGNESIUM,P | 2.0 | 1.6 - 2.6 mg/dL | [facility] [...] [facility] | [address] | [place] [address] | | | SERVICES, NATALEE | VILMA [...] | | | LABORATORY | | | HAITIAN | | | SERVICES, | | | [...] | + + + + + | [facility] | [address] | [place] [address] | | | SERVICES, CORE | VILMA [...] [facility] | [address] | [place] | | | [facility] | [address] | [address] | | | TESTS | | | [...] - [facility] | [address] | [place] | | | [facility] | [address] | [address] | | | TESTS | | | | + + + + + 12 LEAD ECG (09/30/2017 3:17 PM PDT) + + + + + + | Component | Value | Ref Range | Performed | Pathologist | | | | | At | Signature | + + + + + + | VENTRICULAR | 65 | bpm | [facility] | | [...] + + + + + + | QTCB | 481 | ms | [facility] [...] [facility] | [address] | [place], [place] | | | CARDIOLOGY | [address] | [address] | | + + + + + [...] | | |Stable postprocedural changes from right lmia-cranioplasty and subjacent extra-axial fluid collection resulting in [...] [facility] | [address] | [place], [place] | | | [facility] | [address] | [address] | | | TESTS | | | [...] [facility] | [address] | [place] | | | [facility] | [facility] | [address] | | | TESTS | | | [...] | + + + + + | [facility] | [address] | [place] [address] | | | SERVICES, CORE | VILMA [...] [facility] | [address] | [place] [address] | | | SERVICES, CORE | PARK [...] | | | LABORATORY | | | HAITIAN | | | SERVICES, | | | [...] the MDRD equation recommended by the | [facility] | | National Kidney Disease [...] | + + + + + | [facility] | [address] | [place] [address] | | | ELIN, NATALEE | VILMA [...] (H) | 70 - 99 mg/dL | [facility] - | | | GLUCOSE, [...] [facility] | [address] | [place] | | | [facility] | [facility] | [address] | | | TESTS | | | [...] [facility] | [address] | [place] | | | [facility] | [address] | [address] | | | TESTS | | | [...] [facility] | [address] | [place] | | | [facility] | [facility] | [address] | | | TESTS | | | [...] + + + + + + | QTCB | 442 | ms | [facility] [...] DEPT OF | [address] | [place] | | | CARDIOLOGY | [address] | [address] | | + + + + + [...] [facility] | [address] | [place] | | | [facility] | [address] | [address] | | | TESTS | | | [...] | + + + + + | [facility] | [address] | [place] [address] | | | NATALEE WORTHINGTON | PARK [...] | | | LABORATORY | | | HAITIAN | | | SERVICES, | | | [...] [facility] | [address] | [place] [address] | | | SERVICES, CORE | PARK [...] | + + + + + | [facility] | [address] | [place] [address] | | | NATALEE WORTHINGTON | PARK [...] [facility]EL[facility] | [address] | [place] | | | [facility]ARE | [facility] | [address] | | | TESTS | | | [...] (H) | 70 - 99 mg/dL | [facility] - | | | GLUCOSE, [...] RAPHAEL[facility] | [address] | [place], [place] | | | [facility] | [address] | [address] | | | TESTS | | | [...] [facility] | [address] | [place] | | | [facility] | [facility] | [address] | | | TESTS | | | [...] + + + + + + | QTCB | 454 | ms | [facility] DE[facility] [...] DEPT OF | [address] | [place] | | | CARDIOLOGY | [address] | [address] | | + + + + + [...] + + + | [facility] | [address] | [place] | | | [facility] | [address] | [address] | | | TESTS | | | [...] [facility] | [address] | [place] [address] | | | NATALEE WORTHINGTON | VILMA [...] | + + + + + | [facility] | [address] [facility] | [place] [address] | | | SERVICES, CORE | VILMA [...] | | | LABORATORY | | | HAITIAN | | | SERVICES, | | | [...] | + + + + + | [facility] | [address] | [place] [address] | | | SERVICES, CORE | [address] | | | + + + [...] + + | Performing | Address | City[facility] | Phone Number | | Organization | | | | + + + + + | [facility] | [address] | [place], [place] | | | [facility] | [facility] | [address] | | | TESTS | | | [...] + + + + | [facility] | [address] [facility] [address] | [place] | | | [facility] | [address] | [address] | | | TESTS | | | [...] 09/27/2017 | | 2:17 PM Preliminary: Julian Tinooc MD | |IMPRESSION: | |With the first [...] [facility] | [address] | [place] | | | [facility] | [address] | [address] | | | TESTS | | | [...] [facility] | [address] | [place] | | | [facility] | [facility] | [address] | | | TESTS | | | [...] | + + + + + | [facility] | [address] | [place] [address] | | | SERVICES, CORE | VILMA [...] | + + + + + | [facility] | [address] [facility] | [place] [address] | | | SERVICES, CORE | PARK [...] | | | LABORATORY | | | HAITIAN | | | SERVICES, | | | [...] the MDRD equation recommended by the | [facility] | | National Kidney Disease [...] | + + + + + | [facility] | [address] | [place] [address] | | | SERVICES, CORE | VILMA [...] (H) | 70 - 99 mg/dL | [facility] - | | | GLUCOSE, [...] [facility] | [address] | [place] | | | [facility] | [facility] | [address] | | | TESTS | | | [...] [facility] | [address] | [place] | | | [facility] | [address] | [address] | | | TESTS | | | [...] + + + + + + | QTCB | 466 | ms | [facility] DEPT [...] OF | [address] | [place] | | | CARDIOLOGY | [address] | [address] | | + + + + + [...] [facility] | [address] | [place] | | | [facility] | [address] | [address] | | | TESTS | | | [...] [facility] | [address] | [place] | | | [facility] | [address] | [address] | | | TESTS | | | [...] [facility] | [address] | [place] | | | [facility] | [address] | [address] | | | TESTS | | | [...] | + + + + + | [facility] | [address] | [place] [address] | | | SERVICES, CORE | VILMA [...] | + + + + + | [facility] | [address] [facility] | [place] [address] | | | SERVICES, CORE | PARK [...] | | | LABORATORY | | | HAITIAN | | | SERVICES, | | | [...] the MDRD equation recommended by the | [facility] | | National Kidney Disease Education Program. [...] | + + + + + | [facility] | [address] | [place] [address] | | | SERVICES, CORE | VILMA [...] (H) | 70 - 99 mg/dL | [facility] - | | | GLUCOSE, [...] [facility] | [address] | [place] | | | [facility] | [address] | [address] | | | TESTS | | | [...] | + + + + + | [facility] | [address] [facility] | [place] [address] | | | SERVICES, CORE | PARK [...] [facility] | [address] | [place] [address] | | | SERVICES, CORE | PARK [...] | | | LABORATORY | | | HAITIAN | | | SERVICES, | | | [...] the MDRD equation recommended by the | [facility] | | National Kidney Disease [...] | + + + + + | [facility] | [address] | [place] [address] | | | NATALEE WORTHINGTON | VILMA [...] + + + + + + | QTCB | 457 | ms | [facility] [...] DEPT OF | [address] | [place], [place] | | | CARDIOLOGY | [address] | [address] | | + + + + + [...] 2:43 PM Preliminary: Edelmira Parsons | | | | Fluoro Time 55 second(s) | [...] Note | + + | Service Account, Edúkame Res In Interface - 09/24/2017 4:09 PM [...] | | + +---------+ + + | [facility] | | | | | [facility] | | | | [...] | + + + + + | [facility] | [address] [facility] | [place] [address] | | | SERVICES, CORE | PARK [...] | | | LABORATORY | | | HAITIAN | | | SERVICES, | | | [...] [facility] | [address] | [place] [address] | | | SERVICES, CORE | PARK [...] | + + + + + | [facility] | [address] | [place] [address] | | | SERVICES, CORE | PARK [...] + | [facility] | [address] | [place] [address] | | | NATALEE WORTH[place] | VILMA [...] | Reference range change effective 12/11/16. | [facility] | | | LABORATORY | | | NATALEE [place]TH[place] | + + + + + + + + | Performing | Address | City/State/Zipcode | Phone Number | | Organization | | | | + + + + + | [facility] | [address] | [place] [address] | | | SERVICES, NATALEE | PARK [...] | | | LABORATORY | | | HAITIAN | | | SERVICES, | | | [...] | + + + + + | [facility] | [address] | [place] [address] | | | SERVICES, CORE | VILMA [...] [facility] | [address] | [place], [place] | | | [facility] | [address] | [address] | | | TESTS | | | [...] [facility] | [address] | [place], [place] | | | [facility] | [address] | [address] | | | TESTS | | | [...] | + + + + + | [facility] | [address] | [place] [address] | | | SERVICES, CORE | VILMA [...] + + + + + + | [facility] | 445 | ms | [facility] [...] | [facility] | [address] | [place], [place] | | | CARDIOLOGY | [address] | [address] | | + + + + + [...] | + + + + + | [facility] | [address] | [place] [address] | | | SERVICES, CORE | [address] | | | + + + + + MAGNESIUM, PLASMA (09/22/2017 5:48 AM PDT) + +-------+ + + + | Component | Value | Ref Range | Performed | Pathologist | | | | | At | Signature | + +-------+ + + + | MAGNESIUM,P | 1.9 | 1.6 - 2.6 mg/dL | [facility] | | | LASMA | [...] [facility] | [address] | [place] [address] | | | SERVICES, NATALEE | VILMA [...] | | | LABORATORY | | | HAITIAN | | | SERVICES, | | | [...] | + + + + + | [facility] | [address] | [place] [address] | | | SERVICES, NATALEE | VILMA [...] [facility] | [address] | [place], [place] | | | [facility] | [address] | [address] | | | TESTS | | | [...] | + + + + + | [facility] | [address] | [place] [address] | | | NATALEE WORTHINGTON | VILMA [...] | + + + + + | [facility] | [address] | [place] [address] | | | SERVICES, CORE | VILMA [...] | | | LABORATORY | | | HAITIAN | | | SERVICES, | | | [...] | + + + + + | [facility] | [address] | [place] [address] | | | SERVICES, CORE | [address] | | | + + + + + X-RAY ABD LTD FEEDING TUBE EVAL (09/20/2017 7:23 PM PDT) + + | Specimen | + + | | + + + + + | Narrative | Performed At | + + + | EXAM: ABD LTD FEEDING TUBE EVAL INDICATION: DHT placement | [facility] | | TECHNIQUE: Semi-upright portable view of [...] Note | + + | Service Account, Edúkame Res In Interface - 09/20/2017 7:50 PM [...] Account, Radiant Res In Interface - 09/20/2017 6:25 PM [...] Service Adal, Radiant Res In Interface - 09/20/2017 6:26 [...] now presented. Final | | | signature: Mason Sanchez MD 09/20/2017 5:16 PM Preliminary: Em Radford | | MD Darryn 09/20/2017 1:12 PM | | + + + + + | Procedure Note | + + | Service Account, Kostas Res In Interface - 09/20/2017 5:17 PM [...] report as now presented. Final signature: Mason Sanchez, | | 09/20/2017 5:16 PM Preliminary: Em [...] + + + + + + | QTCB | 444 | ms | [facility] [...] [facility] | [address] | [place], [place] | | | CARDIOLOGY | [address] | [address] | | + + + + + [...] | + + + + + | [facility] | [address] | [place] [address] | | | SERVICES, CORE | PARK [...] [facility] | [address] | [place] [address] | | | SERVICES, NATALEE | VILMA [...] | | | LABORATORY | | | HAITIAN | | | SERVICES, | | | [...] | + + + + + | [facility] | [address] [facility] | [place] [address] | | | SERVICES, CORE | VILMA [...] | + + + + + | [facility] | [address] | [place] [address] | | | SERVICES, CORE | [address] | | | + + + + + MAGNESIUM, PLASMA (09/19/2017 4:32 AM PDT) + +-------+ + + + | Component | Value | Ref Range | Performed | Pathologist | | | | | At | Signature | + +-------+ + + + | MAGNESIUM,P | 2.2 | 1.6 - 2.6 mg/dL | [facility] | | | [facility] | | | [...] [facility] | [address] | [place] [address] | | | SERVICES, NATALEE | VILMA [...] | | | LABORATORY | | | HAITIAN | | | SERVICES, | | | [...] | + + + + + | [facility] | [address] [facility] | [place] [address] | | | SERVICES, CORE | VILMA [...] | + + + + + | [facility] | [address] | [place] [address] | | | SERVICES, CORE | [address] | | | + + + + + MAGNESIUM, PLASMA (09/18/2017 5:40 AM PDT) + +-------+ + + + | Component | Value | Ref Range | Performed | Pathologist | | | | | At | Signature | + +-------+ + + + | MAGNESIUM,P | 2.3 | 1.6 - 2.6 mg/dL | [facility] | | | LASMA | [...] [facility] | [address] | [place] [address] | | | SERVICES, NATALEE | VILMA [...] | | | LABORATORY | | | HAITIAN | | | SERVICES, | | | [...] | + + + + + | [facility] | [address] | [place] [address] | | | SERVICES, CORE | VILMA [...] Note | + + | Service Account, Patient Engagement Systems In Interface - 09/17/2017 11:53 AM PDT [...] [facility] | [address] | [place] [address] | | | SERVICES, CORE | PARK [...] [facility] | [address] | [place] [address] | | | SERVICES, CORE | PARK [...] | | | LABORATORY | | | HAITIAN | | | SERVICES, | | | [...] the MDRD equation recommended by the | [facility] | | National Kidney Disease [...] | + + + + + | [facility] | [address] [facility] | [place] [address] | | | ELIN, CORE | [address] | | | + + + + + X-RAY PORTABLE CHEST PICC LINE CHECK (09/16/2017 1:11 PM PDT) + + | Specimen | + + | | + + + + + | Narrative | Performed At | + + + | EXAM: RI CHEST PICC LINE CHECK HISTORY: PICC placement [...] Note | + + | Service Account, Edúkame Res In Interface - 09/16/2017 1:34 PM PDT EXAM: RI CHEST | | PICC LINE CHECK HISTORY: [...] At | + + + | EXAM: RI CHEST PICC LINE CHECK HISTORY: Evaluate PICC [...] Note | + + | Service Account, Edúkame Res In Interface - 09/16/2017 11:41 AM PDT EXAM: RI CHEST | | PICC LINE CHECK HISTORY: [...] [facility] | [address] | [place] [address] | | | SERVICES, CORE | PARK [...] [facility] | [address] | [place] [address] | | | SERVICES, CORE | PARK [...] | | | LABORATORY | | | HAITIAN | | | SERVICES, | | | [...] | + + + + + | [facility] | [address] | [place] [address] | | | ELIN, NATALEE | [address] | | | + + + + + X-RAY PORTABLE CHEST 1 VIEW (09/15/2017 3:28 PM PDT) + + | Specimen | + + | | + + + + + | Narrative | Performed At | + + + | EXAM: RI CHEST 1 VIEW HISTORY: COMPARISON: None. | [...] Interface - 09/15/2017 6:45 PM PDT EXAM: RI CHEST 1 | | VIEW HISTORY: COMPARISON: [...] At | + + + | EXAM: RI CHEST PICC LINE CHECK HISTORY: PICC COMPARISON: [...] Interface - 09/15/2017 6:43 PM PDT EXAM: RI CHEST | | PICC LINE CHECK HISTORY: [...] Performed by: CHRIS STONE Authorized by: CHAZ MUNOZ | | | PICC/Midline Insertion Procedure Note Indications:TPN Procedure | | | location: Unit:[facility] Room: #12 Providers: Attending name: | | [...] | pause verifies correct patient, procedure, equipment, manager product support | | | and site/side marked as [...] | area Basilic vein. Catheter lot number: [id number] with a length of 55 | | [...] Account, Radiant Res In Interface - 09/15/2017 2:13 [...] | + + + + + | [facility] | [address] | [place] [address] | | | SERVICES, CORE | [address] | | | + + + + + MAGNESIUM, PLASMA (09/15/2017 6:02 AM PDT) + +-------+ + + + | Component | Value | Ref Range | Performed | Pathologist | | | | | At | Signature | + +-------+ + + + | MAGNESIUM,P | 2.1 | 1.6 - 2.6 mg/dL | [facility] | | | L[facility]MA | | | [...] [facility] | [address] | [place] [address] | | | SERVICES, NATALEE | VILMA [...] | | | LABORATORY | | | HAITIAN | | | SERVICES, | | | [...] | + + + + + | [facility] | [address] | [place] [address] | | | NATALEE [place] | VILMA [...] + + | [facility] | [address] [facility] | [place] [address] | | | SERVICES, CORE | PARK [...] [facility] | [address] | [place] [address] | | | SERVICES, CORE | PARK [...] | | | LABORATORY | | | HAITIAN | | | SERVICES, | | | [...] the MDRD equation recommended by the | [facility] | | National Kidney Disease [...] | + + + + + | [facility] | [address] | [place] [address] | | | ELIN, CORE | PARK [...] [facility] | [address] | [place] [address] | | | ELIN, NATALEE | PARK [...] [facility] | [address] | [place] [address] | | | SERVICES, CORE | PARK [...] | | | LABORATORY | | | HAITIAN | | | SERVICES, | | | [...] the MDRD equation recommended by the | [facility] | | National Kidney Disease [...] | + + + + + | [facility] | [address] | [place] [address] | | | NATALEE WORTHINGTON | VILMA [...] Service Account, Kostas Casper In Interface - 09/12/2017 9:13 AM PDT [...] | + + + + + | [facility] | [address] | [place] [address] | | | NATALEE WORTHINGTON | VILMA [...] | + + + + + | [facility] | [address] [facility] | [place] [address] | | | SERVICES, CORE | VILMA [...] | | | LABORATORY | | | HAITIAN | | | SERVICES, | | | [...] | + + + + + | [facility] | [address] | [place] [address] | | | SERVICES, CORE | VILMA [...] Note | + + | Service Account, RadiIntr[employer] Materials Res In Interface - 09/12/2017 6:48 AM [...] | + + + + + | [facility] | [address] | [place] [address] | | | SERVICES, CORE | VILMA [...] [facility] | [address] | [place] [address] | | | SERVICES, CORE | PARK [...] | | | LABORATORY | | | HAITIAN | | | SERVICES, | | | [...] the MDRD equation recommended by the | [facility] | | National Kidney Disease [...] | + + + + + | [facility] | [address] | [place] [address] | | | SERVICES, CORE | VILMA [...] | + + + + + | [facility] | [address] | [place] [address] | | | SERVICES, CORE | VILMA [...] Note | + + | Service Account, Patient Engagement Systems In Interface - 09/10/2017 2:31 PM PDT [...] At | + + + | STUDY: RI CHEST 1 VIEW 09/10/17 07:02:01 HISTORY: Possible [...] Interface - 09/10/2017 9:25 AM PDT STUDY: RI CHEST 1 | | VIEW 09/10/17 07:02:01 [...] | | + +---------+ + + | [facility] | | | | [...] | + + + + + | [facility] | [address] | [place] [address] | | | SERVICES, CORE | PARK [...] | + + + + + | [facility] | [address] | [place] [address] | | | SERVICES, CORE | VILMA [...] and IG# effective | [facility] | | 09/06/2107 | LABORATORY | | | NATALEE WORTHINGTON | + + + + + + + + | Performing | Address | City/State/Zipcode | Phone Number | | Organization | | | | + + + + + | [facility] | [address] | [place] [address] | | | NATALEE WORTHINGTON | V[address] [...] | + + + + + | [facility] | [address] | [place] [address] | | | SERVICES, NATALEE | PARK [...] | | | LABORATORY | | | HAITIAN | | | SERVICES, | | | [...] | + + + + + | [facility] | [address] [facility] | [place] [address] | | | SERVICES, CORE | [address] | | | + + + + + 12 LEAD ECG (09/10/2017 1:08 AM PDT) + + + + + + | Component | Value | Ref Range | Performed | Pathologist | | | | | At | Signature | + + + + + + | VENTRICULAR | 120 | bpm | [facility] | | | RATE | | [...] + + + + + + | QTCB | 489 | ms | [facility] [...] | + + + + + | [facility] | [address] | [place], [place] | | | CARDIOLOGY | [address] | [address] | | + + + + + X-RAY ABD LTD FEEDING TUBE EVAL PORTABLE (09/09/2017 10:15 PM PDT) + + | Specimen | + + | | + + + + + | Narrative | Performed At | + + + | INDICATION: feeding tube placement TECHNIQUE: Supine portable | [facility] | | view of the upper abdomen. [...] presented. Final signature: Edelmira Parsons, | | Prabhakar CABRERA 09/10/2017 11:11 AM Created by: Edelmira Parsons MD | | + + + + + | Procedure Note | + + | Nette Galeas, Radiant Res In Interface - 09/10/2017 11:11 AM [...] | | + +---------+ + + | [facility] | | | | [...] - [facility] | [address] | [place], [place] | | | [place] [facility] | [address] | [address] | | | TESTS | | | [...] [facility] | [address] | [place] [address] | | | SERVICES, CORE | PARK [...] | + + + + + | [facility] | [address] [facility] | [place] [address] | | | SERVICES, CORE | VILMA [...] | | | LABORATORY | | | HAITIAN | | | SERVICES, | | | [...] LABORATORY | [address] | [place] [address] | | | SERVICES, CORE | PARK [...] | + + + + + | [facility] | [address] | [place] [address] | | | SERVICES, CORE | VILMA [...] | | | LABORATORY | | | HAITIAN | | | SERVICES, | | | [...] [facility] | [address] | [place] [address] | | | SERVICES, CORE | PARK [...] | + + + + + | [facility] | [address] [facility] | [place] [address] | | | SERVICES, CORE | VILMA [...] | + + + + + | [facility] | [address] | [place] [address] | | | SERVICES, CORE | [address] | | | + + + + + X-RAY ABD LTD FEEDING TUBE EVAL (09/08/2017 4:38 AM PDT) + + | Specimen | + + | | + + + + + | Narrative | Performed At | + + + | EXAM: ABD LTD FEEDING TUBE EVAL 09/08/17 04:04:50 COMPARISON: | [facility] | | 09/06/17 FINDINGS: Feeding tube has [...] + + + + + + | QTCB | 473 | ms | [facility] [...] + | [facility] | [address] | [place], [place] | | | CARDIOLOGY | [address] | [address] | | + + + + + X-RAY PORTABLE CHEST 1 VIEW (09/07/2017 6:12 AM PDT) + + | Specimen | + + | | + + + + + | Narrative | Performed At | + + + | EXAM: RI CHEST 1 VIEW HISTORY: Post extubation COMPARISON: [...] Interface - 09/07/2017 10:46 AM PDT EXAM: RI CHEST 1 | | VIEWHISTORY: Post extubationCOMPARISON: [...] | + + + + + | [facility] | [address] | [place] [address] | | | SERVICES, CORE | PARK [...] | | | LABORATORY | | | HAITIAN | | | SERVICES, | | | [...] | + + + + + | [facility] | [address] [facility] | [place] [address] | | | NATALEE WORTHINGTON | VILMA [...] [facility] | [address] | [place] [address] | | | ELIN, NATALEE | PARK [...] + + + + + + | QTCB | 537 | ms | [facility] [...] + | [facility] | [address] [facility] | [place], [place] | | | CARDIOLOGY | [address] | [address] | | + + + + + PROCEDURE NOTE (09/06/2017 9:48 AM PDT) + + + | Narrative | Performed At | + + + | Gunjan Patel RN 09/06/2017 [...] site was prepped with | | | Pierce cloth and Chloraprep. Anesthesia was obtained with 1 mL of | | | buffered 1% Lidocaine. Midline Catheter Insertion: The RUE | | | brachial vein was cannulated with dark red, non-pulsatile blood | | | return. A 18g 10cm PowerGlide catheter was placed on the 1st | | | attempt. Midline lot number [id number]; there was positive blood | | | return. The catheter was flushed with 20 mL of Normal Saline, an | | | antimicrobial disc was placed at the insertion site and a catheter | | | securement device was utilized. Complications:none Placed | | | by: Gunjan Patel RN, BSN | | + + [...] | | | LABORATORY | | | HAITIAN | | | SERVICES, | | | [...] [facility] | [address] | [place] [address] | | | SERVICES, CORE | PARK [...] | + + + + + | [facility] | [address] | [place] [address] | | | SERVICES, CORE | [address] | | | + + + + + X-RAY PORTABLE CHEST 1 VIEW (09/05/2017 5:33 AM PDT) + + | Specimen | + + | | + + + + + | Narrative | Performed At | + + + | EXAM: RI CHEST 1 VIEW HISTORY: Evaluation after chest [...] Note | + + | Service Account, Patient Engagement Systems In Interface - 09/05/2017 10:16 AM PDT EXAM: RI CHEST 1 | | VIEW HISTORY: Evaluation [...] | + + + + + | [facility] | [address] | [place] [address] | | | SERVICES, CORE | [address] [...] | Reference range change effective 8/15/17. | [facility] | | | LABORATORY | | | SERVICES, CORE | + + + + + + + + | Performing | Address | City/State/Zipcode | Phone Number | | Organization | | | | + + + + + | [facility] | [address] | [place] [address] | | | NATALEE WORTH[place] | V[address] [...] | | | LABORATORY | | | HAITIAN | | | SERVICES, | | | [...] | + + + + + | [facility] | [address] | [place] [address] | | | SERVICES, CORE | VIL[address] [...] | | | LABORATORY | | | HAITIAN | | | SERVICES, | | | [...] the MDRD equation recommended by the | [facility] | | National Kidney Disease [...] | + + + + + | [facility] | [address] [facility] | [place] [address] | | | [facility] | [address] | | | + + + + + PROCEDURE NOTE (09/04/2017 2:04 PM PDT) + + + | Narrative | Performed At | + + + | CB Betancourt 09/04/2017 2:05 PM Procedure Note: | | | Chest Tube Removal Name: Berlin Temple 09/04/2017 | | | Time: 2:05 [...] tomorrow morning. CB Henson Pager / ID: [id number] | | + + + CULTURE, SPUTUM (09/04/2017 1:17 PM PDT) + + | Specimen | + + | Sputum - | | Endotracheal tube | | tip | + + + + + | Narrative | Performed At | + + + | Culture Report: 1+ Oral Janessa Gram Stain: No squamous | [facility] - | | epithelial cells Rare polymorphonuclear cells No organisms seen | [facility] - | | | [place] | + + + + + + + + | Performing | Address | City/State/Zipcode | Phone Number | | Organization | | | | + + + + + | [facility] | [address] | [place] [address] | | | [place] | | | [...] [facility] | [address] | [place] [address] | | | SERVICES, CORE | VILMA [...] | [facility] | | | GRAVITY | Kimberly performed by | | LABORATORY | | [...] | + + + + + | [facility] | [address] | [place] [address] | | | SERVICES, CORE | [address] | | | + + + + + CULTURE, BLOOD BACTI & YEAST [facility] (09/04/2017 1:16 PM PDT) + + [...] | + + + + + | [facility] | [address] | [place] [address] | | | SERVICES, CORE | PARK [...] [facility] | [address] | [place] [address] | | | SERVICES, CORE | VILMA [...] + + + + + + | QTCB | 474 | ms | [facility] [...] | + + + + + | [facility] OF | [address] [facility] | [place], [place] | | | CARDIOLOGY | [address] | [address] | | + + + + + X-RAY PORTABLE CHEST 1 VIEW (09/04/2017 7:04 AM PDT) + + | Specimen | + + | | + + + + + | Narrative | Performed At | + + + | EXAM: RI CHEST 1 VIEW HISTORY: Hypoxia. Intubated. | [...] Interface - 09/04/2017 9:49 AM PDT EXAM: RI CHEST 1 | | VIEW HISTORY: Hypoxia. [...] | + + + + + | [facility] | [address] | [place] [address] | | | SERVICES, CORE | VILMA [...] [facility] | [address] | [place] [address] | | | SERVICES, CORE | PARK [...] | | | LABORATORY | | | HAITIAN | | | SERVICES, | | | [...] | + + + + + | [facility] | [address] | [place] [address] | | | SERVICES, CORE | [address] | | | + + + + + MAGNESIUM, PLASMA (09/04/2017 12:29 AM PDT) + +-------+ + + + | Component | Value | Ref Range | Performed | Pathologist | | | | | At | Signature | + +-------+ + + + | MAGNESIUM,P | 1.9 | 1.6 - 2.6 mg/dL | [facility] | | | LASMA | [...] [facility] | [address] | [place] [address] | | | SERVICES, NATALEE | VILMA [...] [facility] | [address] | [place], [place] | | | [facility] [employer] | [facility] | [address] | | | TESTS | | | [...] [facility] | [address] | [place], [place] | | | [employer] [employer] | [address] | [address] | | | TESTS | | | [...] [facility] | [address] | [place] | | | [facility] GE[facility] | [address] | [address] | | | TESTS | | | [...] + | [facility] | [address] | [place], [place] | | | [facility] | [address] | [address] | | | TESTS | | | [...] Service Account, Radiant Res In Interface - 09/03/2017 10:27 AM [...] | | + +---------+ + + | [facility] | | | | | [facility] | | | | + +---------+ + + CULTURE, AFB (ALL SPEC TYPES EXCEPT BLOOD) (09/03/2017 9:48 AM PDT) + + | Specimen | + + | Sputum - | | Expectorated | + + + + + | Narrative | Performed At | + + + | Culture Report: No acid fast bacteria isolated at 6 weeks. AFB | [facility] - | | Smear: AFB not detected | [facility] - | | | [place] | + + + + + + + + | Performing | Address | City/State/Zipcode | Phone Number | | Organization | | | | + + + + + | [facility] - | [address] | [place] [address] | | | [facility] | | | | + + + [...] [facility] | [address] | [place] [address] | | | SERVICES, CORE | VILMA [...] Note | + + | Service Account, Patient Engagement Systems In Interface - 09/03/2017 9:54 AM PDT [...] bacteria isolated at 6 weeks. AFB | [facility] | | Smear: AFB not detected | [facility] - | | | [place] | + + + + + + + + | Performing | Address | City/State/Zipcode | Phone Number | | Organization | | | | + + + + + | [facility] | [address] | [place] [address] | | | [facility] [...] | + + + + + | [facility] | [address] | [place] [address] | | | SERVICES, CORE | VILMA [...] | + + + + + | [facility] | [address] | [place] [address] | | | SERVICES, CORE | V[address]MA [...] | | | LABORATORY | | | HAITIAN | | | SERVICES, | | | [...] [facility] | [address] | [place] [address] | | | NATALEE WORTH[place] | PARK [...] | + + + + + | [facility] | [address] | [place] [address] | | | SERVICES, CORE | [address] | | | + + + + + OPERATION RECORD (09/02/2017 6:53 PM PDT) + + | Procedure Note | + + | Fidelina Shields MD - 09/02/2017 6:53 PM PDT Date of Service: 09/02/2017 | | Attending Surgeon: Fidelina Shields MD Facilities Mechanical Design Engineer(s): | | Ajay Garcia MD, resident. Preoperative [...] correct at the end of the case. . | | Bailey Shields was scrubbed and present for the entirety. The patient tolerated the | | procedure well and was transferred to the ICU in stable condition.Ajay Garcia, | | MDMashona Shields MDTBK/MODLDD: 09/02/2017 18:15:29DT: 09/02/2017 18:53:52Job #: | | [id number] to federal Medicare and Medicaid regulations I was present for | | the entire procedure.Fidelina Tenorio ProfessorDepartment of SurgeryOffice: | | [phone]: [id number] has been electronically signed by Fidelina Shields MD, | | 09/03/2017 at 9:11 AM. | | | | | |Fidelina Shields MD | |Avionics Electrical Engineer | |Department of Surgery | |Office: [phone] | |Pager: [phone] | | | |This has been electronically [...] | [facility] | [address] | [place] [address] | | | SERVICES, CORE | PARK [...] | + + + + + | [facility] | [address] | [place] [address] | | | SERVICES, CORE | VILMA [...] bacteria isolated at 6 weeks. AFB | [facility] | | Smear: AFB not detected | [facility] - | | | [place] | + + + + + + + + | Performing | Address | City/State/Zipcode | Phone Number | | Organization | | | | + + + + + | [facility] | [address] | [place] [address] | | | [place] | | | [...] [facility] | [address] | [place] [address] | | | SERVICES, NATALEE | VILMA [...] | | | LABORATORY | | | HAITIAN | | | SERVICES, | | | [...] (H) | 4 - 11 mmol/L | [facility] | | | GAP(ALB | [...] | + + + + + | [facility] | [address] | [place] [address] | | | SERVICES, CORE | VILMA [...] Account, Radiant Res In Interface - 09/02/2017 4:25 PM [...] | | Procedure Date: 09/02/2017 Author: AJAY GARCIA MD | | | Attending Physician: Fidelina Shields MD Assistants: Vicente Garcia MD - | | | resident Preoperative [...] Drains: None Disposition: OR direct to ICU Rees: | | | Will remain for TBD Diet: Strict NPO DVT prophylaxis: okay | | | to begin POD 1 at 2100 Antibiotic Plan: None Glycemic | | | control: None Dressing care: Wound VAC setting standard Provena | | | suction Activity restrictions: Bedrest Initial surgical | | | [facility]: [facility] Vic[facility] Garcia, Surgery [id number] Pursuant | | | to federal Medicare and Medicaid regulations I was present for the | | | entire procedure. Fidelina Shields MD Avionics Electrical Engineer | | | Department of Surgery Office: [phone] Pager: [phone] This has | | | been electronically [...] [facility] | [address] | [place] [address] | | | SERVICES, CORE | [facility] [...] [facility] | [address] | [place] [address] | | | [place] [place] | [address] | | | + + + + + OPERATION RECORD (09/02/2017 6:51 AM PDT) + ---+ | Procedure Note | + ---+ | Fidelina Shields MD - 09/02/2017 6:51 AM PDT Date of Service: 09/01/2017 | | Attending Surgeon: Fidelina Shields MD Facilities Mechanical Design Engineer(s): Haim Peralta MD. | | Ajay Garcia MD. Preoperative [...] 09/02/2017 06:17:53DT: 09/02/2017 | | 06:51:37Job #: [id number] to federal Medicare and Medicaid regulations I | | was present for the entire procedure.Fidelina Shields MDAssistant ProfessorDepartment of | | SurgeryOffice: [phone]: [phone] has been electronically signed by Fidelina Snyder | Prabhakar Shields MD, 09/02/2017 at 10:40 AM. | | | | | |Pursuant to federal Medicare and Medicaid regulations I was present for the entire procedur e. | | | | | | | |Fidelina Shields MD | |Avionics Electrical Engineer | |Department of Surgery | |Office: [phone] | |Pager: [phone] | | | |This has been electronically [...] [facility] | [address] [address] | [place] [address] | | | SERVICES, CORE | PARK [...] | + + + + + | [facility] | [address] | [place] [address] | | | SERVICES, CORE | VILMA [...] + + + + | PRODUCT | [id number] | | [facility] | | | UNIT [...] + + + + | EXPIRATION | [id number] | | [facility] | | | DATE [...] + + + + | BLOOD | [id number] | | [facility] | | | PRODUCT [...] | + + + + + | [facility] | [address] | [place] [address] | | | SERVICES, | [address] [...] solid organs and | | | vasculature. Rees catheter is in place with radiodense [...] | + + + + + | [facility] | [address] | [place] [address] | | | SERVICES, CORE | PARK [...] | | | LABORATORY | | | HAITIAN | | | SERVICES, | | | [...] the MDRD equation recommended by the | [facility] | | National Kidney Disease Education Program. [...] [facility] | [address] | [place] [address] | | | SERVICES, CORE | PARK [...] [facility] | [address] | [place] [address] | | | NATALEE WORTHINGTON | [address] | | | + + + + + QUANTIFERON TB GOLD, BLOOD (09/01/2017 10:18 PM PDT) + + + + + + | Component | Value | Ref Range | Performed | Pathologist | | | | | At | Signature | + + + + + + | QUANTIFERON | NegativeComment: | Negative | [facility] - | | | TB GOLD | INTERPRETIVE | | AIRPORT - | | | | INFORMATION: | | [place] | | | | QuantiFERON-TB Gold | [...] (http://www.cdc.gov/mmwr | | | | | | /preview/mmwrhtml/[email or web address] | | | | | | [email or web address].htm), [...] NIL | 0.05Comment: Performed | IU/mL | [facility] - | | | | by [employer], | | AIRPORT - | | | | | | [place] | | | | [address] | | | | | | Rogelio Pickard [facility] [place] | | | | | | [address] | | | | | | | | | | | | www.[employer], Gui | | | | | | MD Arcadio - Gaby. | | | | | | Director | | | | + + + + + + | TB AG-NIL | 0.26 | 0.00 - 0.34 | [facility] - | | | | | IU/mL | AIRPORT - | | | | | | [place] | | + + + + + + | MITOGEN-NIL | 9.35 | IU/mL | [facility] - | | | | | | [...] | + + + + + | [facility] - AIRPORT - | [address] | [place] [address] | | | [facility] [place] | | | | + + + [...] [facility] | [address] | [place] [address] | | | SERVICES, CORE | PARK [...] | + + + + + | [facility] | [address] | [place] [address] | | | SERVICES, CORE | VILMA [...] Note | + + | Service Account, Edúkame Res In Interface - 09/02/2017 8:55 AM [...] At | + + + | EXAM: RI CHEST 1 VIEW HISTORY: Hypoxemia COMPARISON: 09/01/17 [...] Interface - 09/02/2017 10:34 AM PDT EXAM: RI CHEST 1 | | VIEW HISTORY: HypoxemiaCOMPARISON: [...] | + + + + + | [facility] | [address] | [place] [address] | | | SERVICES, CORE | PARK [...] [facility] | [address] | [place] [address] | | | SERVICES, CORE | VILMA [...] + + + + | PRODUCT | [id number] | | [facility] | | | UNIT [...] + + + + | EXPIRATION | [id number] | | [facility] | | | DATE [...] + + + + | BLOOD | [id number] | | [facility] | | | PRODUCT [...] [facility] | [address] | [place] [address] | | | SERVICES, | [address] [...] | + + + + + | [facility] | [address] | [place] [address] | | | SERVICES, CORE | VILMA [...] | + + + + + | [facility] | [address] | [place] [address] | | | SERVICES, CORE | PARK [...] [facility] | [address] | [place] [address] | | | SERVICES, [facility] | [address] | | | + [...] | | | LABORATORY | | | HAITIAN | | | SERVICES, | | | [...] | + + + + + | [facility] | [address] [facility] | [place] [address] | | | SERVICES, CORE | PARK [...] | + + + + + | [facility] | [address] [facility] | [place] [address] | | | SERVICES, CORE | VILMA [...] | + + + + + | [facility] | [address] | [place] [address] | | | SERVICES, CORE | [address] | | | + + + + + IR LULA HEREDIA (09/01/2017 2:06 PM PDT) + + | [...] micropuncture access set was exchanged for a Podaddies wire. Under | | | fluoroscopic guidance, a 5 Fr flush catheter was used to evaluate the | | | distal abdominal aorta and pelvic vasculature. A wire and catheter | | | were then used to select the left common and internal iliac arteries | | | from the right NUMERICAL ANALYSIS GROUP MANAGER approach. DSA was performed from the left [...] micropuncture access set was exchanged for a Podaddies wire. Under fluoroscopic guidance, | | a 5 Fr flush catheter was used to evaluate the distal abdominal aorta and pelvic | | vasculature. A wire and catheter were then used to select the left common and internal | | iliac arteries from the right NUMERICAL ANALYSIS GROUP MANAGER approach. DSA was performed from the left [...] micropuncture access set was exchanged for a Podaddies wire. Under fluoroscopic guidance, a 5 Fr flush catheter was used | |to evaluate the distal abdominal aorta and pelvic vasculature. A wire and catheter were th en used to select the left common and internal iliac arteries from the right NUMERICAL ANALYSIS GROUP MANAGER approach. DSA was performed from the left [...] | | + +---------+ + + ABG-FULL ABL, POC (09/01/2017 1:36 PM PDT) + + [...] | | | POC | | | [facility]YUSH | | | [...] + + + | [facility] | [address] | [place], [place] | | | GLORIA GENAO OF CARE | [address] | [address] | | | TESTS | | | | + + + + + EXPLORATORY LAPAROTOMY (09/01/2017 12:31 PM PDT) + + + | Narrative | Performed At | + + + | Fidelina Shields MD 09/01/2017 12:42 PM BRIEF OPERATIVE NOTE: | | | Date: 09/01/2017 Author: Fidelina Shields MD | | | Attending Physician: Fidelina Shields MD Facilities Mechanical Design Engineer(s): Haim Peralta | | | , Vicente Garcia MD, [facility] MS3 Prior to the | | | [...] case. | | | Fidelina Shields MD Avionics Electrical Engineer Division of Trauma, | | | Critical Care and Acute Care Surgery Office: [phone] Pager: | | | [phone] | | + + + ABG-FULL ABL, [...] [facility] | [address] | [place], [place] | | | GLORIA GENAO OF CARE | [address] | [address] | | | TESTS | | | [...] | + + + + + | [facility] | [address] | [place] [address] | | | SERVICES, CORE | [address] | | | + + + + + ABG-KENRICK WALDRON POC (09/01/2017 11:04 AM PDT) + + [...] | | | | | | GLORIA GEANO | | | | | | OF [...] + + + | [facility] | [address] | [place], [place] | | | GLORIA GENAO OF GM | [address] | [address] | | | TESTS | | | [...] + + + + | PRODUCT | [id number] | | [facility] | | | UNIT [...] + + + + | EXPIRATION | [id number] | | [facility] | | | DATE [...] + + + + | BLOOD | [id number] | | [facility] | | | PRODUCT [...] [facility] | [address] | [place] [address] | | | SERVICES, | [address] [...] + + + + | PRODUCT | [id number] | | [facility] | | | UNIT [...] + + + + | EXPIRATION | [id number] | | [facility] | | | DATE [...] + + + + | BLOOD | [id number] | | [facility] | | | PRODUCT [...] [facility] | [address] | [place] [address] | | | SERVICES, | [address] [...] + + + + | PRODUCT | [id number] | | [facility] | | | UNIT [...] + + + + | EXPIRATION | [id number] | | [facility] | | | DATE [...] + + + + | BLOOD | [id number] | | [facility] | | | PRODUCT [...] + + | [facility] | [address] | [place] [address] | | | SERVICES, | [address] [...] + + + + | PRODUCT | [id number] | | [facility] | | | UNIT [...] + + + + | EXPIRATION | [id number] | | [facility] | | | DATE [...] + + + + | BLOOD | [id number] | | [facility] | | | PRODUCT [...] [facility] | [address] | [place] [address] | | | SERVICES, | [address] [...] + + + + | PRODUCT | [id number] | | [facility] | | | UNIT [...] + + + + | EXPIRATION | [id number] | | [facility] | | | DATE [...] + + + + | BLOOD | [id number] | | [facility] | | | PRODUCT [...] LABORATORY | [address] | [place] [address] | | | SERVICES, | [address] [...] + + + + | PRODUCT | [id number] | | [facility] | | | UNIT [...] + + + + | EXPIRATION | [id number] | | [facility] | | | DATE [...] + + + + | BLOOD | [id number] | | [facility] | | | PRODUCT [...] | + + + + + | [facility] | [address] | [place] [address] | | | SERVICES, | [address] [...] + + + + | PRODUCT | [id number] | | [facility] | | | UNIT [...] + + + + | EXPIRATION | [id number] | | [facility] | | | DATE [...] + + + + | BLOOD | [id number] | | [facility] | | | PRODUCT [...] | + + + + + | [facility] | [address] | [place] [address] | | | SERVICES, | [address] [...] + + + + | PRODUCT | [id number] | | [facility] | | | UNIT [...] + + + + | EXPIRATION | [id number] | | [facility] | | | DATE [...] + + + + | BLOOD | [id number] | | [facility] | | | PRODUCT [...] | + + + + + | [facility] | [address] | [place] [address] | | | SERVICES, | [address] [...] + + + + | PRODUCT | [id number] | | [facility] | | | UNIT [...] + + + + | EXPIRATION | [id number] | | [facility] | | | DATE [...] + + + + | BLOOD | [id number] | | [facility] | | | PRODUCT [...] | + + + + + | [facility] | [address] | [place] [address] | | | SERVICES, | [address] [...] + + + + | PRODUCT | [id number] | | [facility] | | | UNIT [...] + + + + | EXPIRATION | [id number] | | [facility] | | | DATE [...] + + + + | BLOOD | [id number] | | [facility] | | | PRODUCT [...] [facility] | [address] | [place] [address] | | | SERVICES, | [address] [...] + + + + | PRODUCT | [id number] | | [facility] | | | UNIT [...] + + + + | EXPIRATION | [id number] | | [facility] | | | DATE [...] + + + + | BLOOD | [id number] | | [facility] | | | PRODUCT [...] [facility] | [address] | [place] [address] | | | SERVICES, | [address] [...] + + + + | PRODUCT | [id number] | | [facility] | | | UNIT [...] + + + + | EXPIRATION | [id number] | | [facility] | | | DATE [...] + + + + | BLOOD | [id number] | | [facility] | | | PRODUCT [...] [facility] | [address] | [place] [address] | | | SERVICES, | [address] [...] + + + + | PRODUCT | [id number] | | [facility] | | | UNIT [...] + + + + | EXPIRATION | [id number] | | [facility] | | | DATE [...] + + + + | BLOOD | [id number] | | [facility] | | | PRODUCT [...] [facility] | [address] | [place] [address] | | | SERVICES, | [address] [...] + + + + | PRODUCT | [id number] | | [facility] | | | UNIT [...] + + + + | EXPIRATION | [id number] | | [facility] | | | DATE [...] + + + + | BLOOD | [id number] | | [facility] | | | PRODUCT [...] [facility] | [address] | [place] [address] | | | SERVICES, | [address] [...] + + + + | PRODUCT | [id number] | | [facility] | | | UNIT [...] + + + + | EXPIRATION | [id number] | | [facility] | | | DATE [...] + + + + | BLOOD | [id number] | | [facility] | | | PRODUCT [...] [facility] | [address] | [place] [address] | | | SERVICES, | [address] [...] + + + + | PRODUCT | [id number] | | [facility] | | | UNIT [...] + + + + | EXPIRATION | [id number] | | [facility] | | | DATE [...] + + + + | BLOOD | [id number] | | [facility] | | | PRODUCT [...] LABORATORY | [address] | [place] [address] | | | SERVICES, | [address] [...] + + + + | PRODUCT | [id number] | | [facility] | | | UNIT [...] + + + + | EXPIRATION | [id number] | | [facility] | | | DATE [...] + + + + | BLOOD | [id number] | | [facility] | | | PRODUCT [...] [facility] | [address] | [place] [address] | | | SERVICES, | [address] [...] + + + + | PRODUCT | [id number] | | [facility] | | | UNIT [...] + + + + | EXPIRATION | [id number] | | [facility] | | | DATE [...] + + + + | BLOOD | [id number] | | [facility] | | | PRODUCT [...] | + + + + + | [facility] | [address] | [place] [address] | | | SERVICES, | [address] [...] + + + + | PRODUCT | [id number] | | [facility] | | | UNIT [...] + + + + | EXPIRATION | [id number] | | [facility] | | | DATE [...] + + + + | BLOOD | [id number] | | [facility] | | | PRODUCT [...] | + + + + + | [facility] | [address] | [place] [address] | | | SERVICES, | [address] [...] + + + + | PRODUCT | [id number] | | [facility] | | | UNIT [...] + + + + | EXPIRATION | [id number] | | [facility] | | | DATE [...] + + + + | BLOOD | [id number] | | [facility] | | | PRODUCT [...] | + + + + + | [facility] | [address] | [place] [address] | | | SERVICES, | [address] [...] + + + + | PRODUCT | [id number] | | [facility] | | | UNIT [...] + + + + | EXPIRATION | [id number] | | [facility] | | | DATE [...] + + + + | BLOOD | [id number] | | [facility] | | | PRODUCT [...] | + + + + + | [facility] | [address] | [place] [address] | | | SERVICES, | [address] [...] + + + + | PRODUCT | [id number] | | [facility] | | | UNIT [...] + + + + | EXPIRATION | [id number] | | [facility] | | | DATE [...] + + + + | BLOOD | [id number] | | [facility] | | | PRODUCT [...] [facility] | [address] | [place] [address] | | | SERVICES, | [address] [...] + + + + | PRODUCT | [id number] | | [facility] | | | UNIT [...] + + + + | EXPIRATION | [id number] | | [facility] | | | DATE [...] + + + + | BLOOD | [id number] | | [facility] | | | PRODUCT [...] [facility] | [address] | [place] [address] | | | SERVICES, | [address] [...] + + + + | PRODUCT | [id number] | | [facility] | | | UNIT [...] + + + + | EXPIRATION | [id number] | | [facility] | | | DATE [...] + + + + | BLOOD | [id number] | | [facility] | | | PRODUCT [...] [facility] | [address] | [place] [address] | | | SERVICES, | [address] [...] + + + + | PRODUCT | [id number] | | [facility] | | | UNIT [...] + + + + | EXPIRATION | [id number] | | [facility] | | | DATE [...] + + + + | BLOOD | [id number] | | [facility] | | | PRODUCT [...] [facility] | [address] | [place] [address] | | | SERVICES, | [address] [...] + + + + | PRODUCT | [id number] | | [facility] | | | UNIT [...] + + + + | EXPIRATION | [id number] | | [facility] | | | DATE [...] + + + + | BLOOD | [id number] | | [facility] | | | PRODUCT [...] [facility] | [address] | [place] [address] | | | SERVICES, | [address] [...] [facility] | [address] | [place] [address] | | | SERVICES, CORE | [address] [...] | | | LABORATORY | | | HAITIAN | | | SERVICES, | | | [...] | + + + + + | [facility] | [address] [facility] | [place] [address] | | | SERVICES, CORE | [address] [...] | + + + + + | [facility] | [address] | [place] [address] | | | SERVICES, CORE | [address] [...] [facility] | [address] | [place], [place] | | | [facility] | [address] | [address] | | | TESTS | | | | + + + + + X-RAY PORTABLE CHEST 1 VIEW (09/01/2017 9:18 AM PDT) + + | Specimen | + + | | + + + + + | Narrative | Performed At | + + + | EXAM: RI CHEST 1 VIEW HISTORY: Intubated COMPARISON: 08/31/17 [...] Interface - 09/02/2017 1:23 PM PDT EXAM: RI CHEST 1 | | VIEW HISTORY: IntubatedCOMPARISON: [...] Note | + + | Service Account, Edúkame Res In Interface - 09/01/2017 1:40 PM [...] + + + + | PRODUCT | [id number] | | [facility] | | | UNIT [...] + + + + | EXPIRATION | [id number] | | [facility] | | | DATE [...] + + + + | BLOOD | [id number] | | [facility] | | | PRODUCT [...] [facility] | [address] | [place] [address] | | | SERVICES, | [address] [...] + + + + | PRODUCT | [id number] | | [facility] | | | UNIT [...] + + + + | EXPIRATION | [id number] | | [facility] | | | DATE [...] + + + + | BLOOD | [id number] | | [facility] | | | PRODUCT [...] [facility] | [address] | [place] [address] | | | SERVICES, | [address] [...] + + + + | PRODUCT | [id number] | | [facility] | | | UNIT [...] + + + + | EXPIRATION | [id number] | | [facility] | | | DATE [...] + + + + | BLOOD | [id number] | | [facility] | | | PRODUCT [...] [facility] | [address] | [place] [address] | | | SERVICES, | [address] [...] + + + + | PRODUCT | [id number] | | [facility] | | | UNIT [...] + + + + | EXPIRATION | [id number] | | [facility] | | | DATE [...] + + + + | BLOOD | [id number] | | [facility] | | | PRODUCT [...] [facility] | [address] | [place] [address] | | | SERVICES, | [address] [...] + + + + | PRODUCT | [id number] | | [facility] | | | UNIT [...] + + + + | EXPIRATION | [id number] | | [facility] | | | DATE [...] + + + + | BLOOD | [id number] | | [facility] | | | PRODUCT [...] [facility] | [address] | [place] [address] | | | SERVICES, | [address] [...] + + + + | PRODUCT | [id number] | | [facility] | | | UNIT [...] + + + + | EXPIRATION | [id number] | | [facility] | | | DATE [...] + + + + | BLOOD | [id number] | | [facility] | | | PRODUCT [...] [facility] | [address] | [place] [address] | | | SERVICES, | [address] [...] + + + + | PRODUCT | [id number] | | [facility] | | | UNIT [...] + + + + | EXPIRATION | [id number] | | [facility] | | | DATE [...] + + + + | BLOOD | [id number] | | [facility] | | | PRODUCT [...] [facility] | [address] | [place] [address] | | | SERVICES, | [address] [...] + + + + | PRODUCT | [id number] | | [facility] | | | UNIT [...] + + + + | EXPIRATION | [id number] | | [facility] | | | DATE [...] + + + + | BLOOD | [id number] | | [facility] | | | PRODUCT [...] | + + + + + | [facility] | [address] | [place] [address] | | | SERVICES, | [address] [...] Note | + + | Service Account, Edúkame Res In Interface - 09/01/2017 9:01 AM [...] + + + + | PRODUCT | [id number] | | [facility] | | | UNIT [...] + + + + | EXPIRATION | [id number] | | [facility] | | | DATE [...] + + + + | BLOOD | [id number] | | [facility] | | | PRODUCT [...] [facility] | [address] | [place] [address] | | | SERVICES, | [address] [...] | + + + + + | [facility] | [address] | [place] [address] | | | NATALEE WORTHINGTON | [address] [...] + + | [facility] | [address] [facility] | [place] [address] | | | SERVICES, CORE | [address] | | | + + + + + MRI SPINE CERVICAL/THORACIC WO CONTRAST (09/01/2017 3:53 AM PDT) + + | Specimen | + + | | + + + + + | Narrative | Performed At | + + + | EXAM: MRI cervical and thoracic spine without contrast HISTORY: | [facility] | | Trauma, known vertebral fractures. COMPARISON: [...] Discussed with | | | trauma ICU pricing intern by Dr. Yang at 4:38 AM. [...] interspinous ligament is injured.Discussed with trauma ICU pricing intern | | by Dr. Yang at 4:38 AM.I have personally reviewed the images and, if necessary, | | edited the report. I agree with the report as now presented. | |3. Extensive soft tissue edema extending into the cervical and upper thoracic interspinous space, suggestive of interspinous ligament is injured. | | | |Discussed with trauma ICU pricing intern by Dr. Yang at 4:38 AM. [...] | | | LABORATORY | | | HAITIAN | | | SERVICES, | | | [...] | + + + + + | [facility] | [address] [facility] | [place] [address] | | | SERVICES, CORE | [address] [...] + | [facility] | [address] | [place] [address] | | | SERVICES, CORE | [address] [...] [facility] | [address] | [place] [address] | | | SERVICES, CORE | [address] [...] | + + + + + | [facility] | [address] [facility] | [place] [address] | | | SERVICES, [facility] | [address] | | | + [...] pleural spaced was performed. A 32 size Nicaraguan chest tube was | | | placed [...] | ventricles. Discussed with the trauma ICU pricing intern at 12:12 AM by | | | [...] ventricles.Discussed with | | the trauma ICU pricing intern at 12:[address] Yang.I [...] | | |Discussed with the trauma ICU pricing intern at 12:[address] Yang. [...] Line | [facility] - | | Name: Berlin Temple 08/31/2017 Time: 17:45 | PIYUSH GENAO, [...] [facility] | [address] | [place], [place] | | | [facility]O [facility] | [address] | [address] | | | TESTS | | | [...] [facility] | [address] | [place] [address] | | | SERVICES, CORE | [address] [...] [facility] | [address] | [place] [address] | | | NATALEE WORTHINGTON | [address] [...] | | + +---------+ + + | [facility] | | | | [...] | + + + + + | [facility] | [address] | [place] [address] | | | SERVICES, [facility] | [address] | | | + + + + + X-RAY PORTABLE CHEST 1 VIEW (08/31/2017 7:07 PM PDT) + + | Specimen | + + | | + + + + + | Narrative | Performed At | + + + | STUDY: RI CHEST 1 VIEW HISTORY: Trauma COMPARISON: CT CAP | [facility] | | 08/31/2017 FINDINGS: Endotracheal tube with [...] Interface - 09/01/2017 1:44 PM PDT STUDY: RI CHEST 1 | | VIEWHISTORY: TraumaCOMPARISON: CT [...] [facility] | [address] | [place] [address] | | | SERVICES, CORE | [address] [...] Note | + + | Service Account, [employer] Res In Interface - 08/31/2017 8:22 PM [...] | Unremarkable. PELVIC ORGANS/BLADDER: There is a Rees catheter within | | | the bladder. [...] rib, nondisplaced-Left | | 1st rib fracture, oahmaduhovek-Uux-yiyughcga left lateral 8th rib fracture-T12 fracture | [...] Note | + + | Service Account, Edúkame Res In Interface - 08/31/2017 8:10 PM [...] | + + + + + | [facility] | [address] | [place] [address] | | | SERVICES, | [address] [...] [facility] | [address] | [place] [address] | | | SERVICES, | [address] [...] [facility] | [address] | [place] [address] | | | SERVICES, | [address] [...] [facility] | [address] | [place], [place] | | | GLORIA GENAO OF [facility] | [facility] | [address] | | | TESTS | | | [...] [place] | | | | | | [place], [...] signed on 09/02/2017 at 11:54 AM Fidelina Snyder | | | MD Cornelius | | + + + + + + + + | Performing | Address | City/State/Zipcode | Phone Number | | Organization | | | | + + + + + | [facility] | [address] | [place], [place] | | | GLORIA GENAO OF [facility] | [address] | [address] | | | TESTS | | | | + + + + + CHEM 8 W/H&CITLALY Delong (08/31/2017 5:31 PM PDT) + + + [...] [facility] | [address] | [place], [place] | | | GLORIA GENAO OF CARE | [facility] | [address] | | | TESTS | | | [...] | | | BE | | | [place] | | | | | | GLORIA GENAO | | | | | | OF CARE | | | | | | TESTS | | + + + + + + | ED BG POC | 78 (H) | 30 - 55 mmHg | [facility] - | | | PO2 | | | [place] | | | | | | GLORIA GENAO | | | | | | OF CARE | | | | | | TESTS | | + + + + + + | ED BG POC | 95 | % | [facility] - | | | SO2 | | | [place] | | | [...] - [facility] | [address] | [place], [place] | | | [facility] | [facility] | [address] | | | TESTS | | | [...] + + + + | PRODUCT | [id number] | | [facility] | | | UNIT [...] + + + + | EXPIRATION | [id number] | | [facility] | | | DATE [...] + + + + | BLOOD | [id number] | | [facility] | | | PRODUCT [...] [facility] | [address] | [place] [address] | | | SERVICES, | [address] [...] + + + + | PRODUCT | [id number] | | [facility] | | | UNIT [...] + + + + | EXPIRATION | [id number] | | [facility] | | | DATE [...] + + + + | BLOOD | [id number] | | [facility] | | | PRODUCT [...] LABORATORY | [address] | [place] [address] | | | SERVICES, | [address] [...] + + + + | PRODUCT | [id number] | | [facility] | | | UNIT [...] + + + + | EXPIRATION | [id number] | | [facility] | | | DATE [...] + + + + | BLOOD | [id number] | | [facility] | | | PRODUCT [...] | + + + + + | [facility] | [address] | [place] [address] | | | SERVICES, | [address] [...] + + + + | PRODUCT | [id number] | | [facility] | | | UNIT [...] + + + + | EXPIRATION | [id number] | | [facility] | | | DATE [...] + + + + | BLOOD | [id number] | | [facility] | | | PRODUCT [...] | + + + + + | [facility] | [address] | [place] [address] | | | SERVICES, | [address] [...] + + + + | PRODUCT | [id number] | | [facility] | | | UNIT [...] + + + + | EXPIRATION | [id number] | | [facility] | | | DATE [...] + + + + | BLOOD | [id number] | | [facility] | | | PRODUCT [...] | + + + + + | [facility] | [address] | [place] [address] | | | SERVICES, | [address] [...] + + + + | PRODUCT | [id number] | | [facility] | | | UNIT [...] + + + + | EXPIRATION | [id number] | | [facility] | | | DATE [...] + + + + | BLOOD | [id number] | | [facility] | | | PRODUCT [...] | + + + + + | [facility] | [address] [facility] [facility] | [place] [address] | | | SERVICES, | [address] [...] + + + + | PRODUCT | [id number] | | [facility] | | | UNIT [...] + + + + | EXPIRATION | [id number] | | [facility] | | | DATE [...] + + + + | BLOOD | [id number] | | [facility] | | | PRODUCT [...] | + + + + + | [facility] | [address] | [place] [address] | | | SERVICES, | [address] [...] + + + + | PRODUCT | [id number] | | [facility] | | | UNIT [...] + + + + | EXPIRATION | [id number] | | [facility] | | | DATE [...] + + + + | BLOOD | [id number] | | [facility] | | | PRODUCT [...] | + + + + + | [facility] | [address] | [place] [address] | | | SERVICES, | [address] [...] | + + + + + | [facility] | [address] | [place] [address] | | | SERVICES, CORE | [address] [...] | | | LABORATORY | | | [facility] | | | SERVICES, | | | [...] [facility] | [address] | [place] [address] | | | SERVICES, CORE | [address] [...] valves (2.5 - 3.5) INR APTT | ELIN, CORE | | Therapeutic Range: (75 - 120) sec | | | Heparin levels of 0.35 - 0.7 U/mL | | + + + + + + + + | Performing | Address | City/State/Zipcode | Phone Number | | Organization | | | | + + + + + | [facility] | [address] | [place] [address] | | | NATALEE WORTHINGTON | [address] [...] [facility] | [address] | [place] [address] | | | SERVICES, CORE | PARK [...] | + + + + + | [facility] | [address] [facility] [facility] | [place] [address] | | | SERVICES, CORE | [address] [...] | + + + + + | [facility] | [address] | [place] [address] | | | ELIN, NATALEE | [address] [...] 0029, | | | Until Sat12/06/17 at 2051, CBG | | | less than 70 [...] First dose on 11/10/17 at | | AM PDT | | [...] | | | DAILY, First dose on Sat12/01/17 | | AM PDT | | | [...] 6 HOURS | | | NEEDED, Starting Tu12/03/17 at | | | 1128, Until Sat12/06/17 at 2052, | | | aggression, non-redirectable | | | combativeness | | + +---+ | | | + +---+ + +-------+ +------+---+ + | heparin 5000 unit in NaCl 0.9 % | Given | 09/02/19 | 5 mL | | Surgical | | 500 mL (10 units/mL) flush | | 18 1:46 | | | Site | | solution INTRAPROCEDURE PRN, | | PM PDT | | | | | Starting 09/01/17 at 1346, | | | | | | | Until 09/01/17 at 1431 | | | | | | + +-------+ +------+---+ + +---+---+ | | | +---+---+ + +-------+ +-------+---+ + | iodixanol (VISIPAQUE) injection | Given | 09/02/19 | 80 mL | | Surgical | | INTRAPROCEDURE PRN, Starting | | 18 2:10 | | | Site | | 09/01/17 at 1410, Until Sun | | PM PDT | | | | | 09/01/17 at 1431 | | | | | | + [...] 08/31/17 at | | | 1846, Until 12/06/17 at 2051, | | | Nurse initiated [...] | | | | | | at 2, nausea/vomiting if | | | | | [...] | | | 10/29/17 at 0742, Until Sat12/06/17 | | | | | | | at 2051, nausea/vomiting, first | | | | | [...] | | | 1230, Until Sat12/06/17 at 2051, | | | | | | | [...]
--- OUTSIDE RECORDS SUMMARY | ~2019-04-04 | XMS | Encounter Summary ---
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 became [...] I have independently reviewed current medication Labs: [facility] Significant Results reviewed Imaging: I have [...] Call team 19/11 for questions: Team Pager [phone] Associated attestation - Fidelina Shields MD - 09/01/2017 6:55 PM PDTICU Attending: I saw and examined Berlin Temple ([id number]) with the residents on 09/01/17 and agree [...] event note this morning. Fidelina Shields MD Blocking Machine Operator Division of Trauma, Critical Care and Acute Care Surgery Office: [phone] Pager: [phone] This has been electronically signed by Fidelian Shields MD, 09/01/2017 at 6:50 PM. Shiva [...] Please contact the neurosurgery resident on-call pager [phone] with questions. Shiva White MD Neurological Surgery PGY2 haz Munoz MD - 08/31/2017 11:46 PM PDTTrauma Staff Spoke with Dr. Pnia regarding c-spine MRI risks and benefits. Unable to communicate with patient, unable to locate family to answer questions or consent. "MRI dao goldman ust include upper thoracic spine" indicated by NSG given his injury complex and inability to address strength. Agree to proceed with MRI. Chaz Munoz MD, FACS Blocking Machine Operator, Trauma, Critical Care and Acute Care Surgery [...] Dislodged | | | PLACEMENT | | 2:37 PM | gastrostomy tube | | | | | PDT | | | + +--------+ + + + | EXPLORATORY | | 10/12/2017 | Dislodged | | | LAPAROTOMY | | 2:37 PM | gastrostomy tube | | | [...] | + +--------+ + + + | TITO COLE ONLY | Routin | 09/04/2017 | | [...] +--------+ + + + | -CITLALY BAKER | Urgent | 08/31/2017 | | Results [...] | + + + + + | [facility] DEPT OF | [address] | [place], [place] | | | CARDIOLOGY | [address] | [address] | | + + + + + [...] | | | LABORATORY | | | ANGUILLAN | | | SERVICES, | | | [...] + + | [facility] | [address] | [place] [address] | | | SERVICES, NATALEE | PARK [...] | + + + + + | [facility] LABORATORY | [address] | [place] [address] | | | NATALEE WORTHINGTON | VILMA [...] OF | [address] | [place], [place] | | | CARDIOLOGY | [address] | [address] | | + + + + + [...] [facility] | [address] | [place] [address] | | | SERVICES, CORE | PARK [...] DEPT OF | [address] | [place], [place] | | | CARDIOLOGY | [address] | [address] | | + + + + + [...] Note | + + | Service Account, [facility] In Interface - 12/03/2017 4:56 PM PDT [...] | + + + + + | [facility] LABORATORY | [address] | [place] [address] | | | NATALEE WORTHINGTON | VILMA [...] Note | + + | Service Account, [facility] In Interface - 12/03/2017 10:30 AM PDT [...] MD 12/03/2017 10:29 AM | |Preliminary: Mick Simsm MD 12/03/2017 10:25 AM | |Dictation initiated: [...] + | [facility] DEPT OF | [address] | [place], [place] | | | CARDIOLOGY | [address] | [address] | | + + + + + [...] | + + + + + | [employer] [facility] [facility] | [address] | [place] [address] | | | SERVICES, NATALEE | VILMA [...] + | [facility] - | [address] | [place] [address] | | | [place] | | | [...] | + + + + + | [employer] | [address] | [place] [address] | | | SERVICES, CORE | VILMA [...] [facility] | [address] | [place] [address] | | | SERVICES, CORE | PARK [...] | + + + + + | [facility] | [address] | [place] [address] | | | SERVICES, CORE | PARK [...] | | | LABORATORY | | | ANGUILLAN | | | SERVICES, | | | [...] | + + + + + | [facility] | [address] | [place] [address] | | | SERVICES, CORE | PARK [...] | + + + + + | [facility] | [address] | [place] [address] | | | SERVICES, CORE | VILMA [...] DEPT OF | [address] | [place], [place] | | | CARDIOLOGY | [address] | [address] | | + + + + + [...] + + | [facility] DEPT OF | [address] | [place], [place] | | | CARDIOLOGY | [address] | [address] | | + + + + + [...] | | | LABORATORY | | | ANGUILLAN | | | SERVICES, | | | [...] | + + + + + | [facility] | [address] | [place] [address] | | | SERVICES, CORE | VILMA [...] | + + + + + | [facility] | [address] | [place] [address] | | | SERVICES, CORE | [address] | | | + + + + + 12 LEAD ECG (11/27/2017 11:03 AM PDT) + + + + + + | Component | Value | Ref Range | Performed | Pathologist | | | | | At | Signature | + + + + + + | VENTRICULAR | 56 | bpm | [facility] DEPT | | | RATE [...] DEPT OF | [address] | [place], [place] | | | CARDIOLOGY | [address] | [address] | | + + + + + [...] Note | + + | Service Account, [employer] Res In Interface - 11/26/2017 12:36 PM [...] | + + + + + | [facility] - | [address] | [place] [address] | | | [place] | | | [...] [facility] | [address] | [place] [address] | | | SERVICES, CORE | PARK [...] + + | [facility] | [address] | [place] [address] | | | SERVICES, CORE | PARK [...] [facility] | [address] | [place] [address] | | | SERVICES, CORE | PARK [...] | + + + + + | [facility] | [address] | [place] [address] | | | SERVICES, CORE | VILMA [...] | | | LABORATORY | | | ANGUILLAN | | | SERVICES, | | | [...] | + + + + + | [facility] | [address] | [place] [address] | | | ELIN, NATALEE | [address] | | | + + + + + MAGNESIUM, PLASMA (11/25/2017 5:30 AM PDT) + +-------+ + + + | Component | Value | Ref Range | Performed | Pathologist | | | | | At | Signature | + +-------+ + + + | MAGNESIUM,P | 2.1 | 1.6 - 2.6 mg/dL | [facility] | | | LASMA | | | [...] [facility] | [address] | [place] [address] | | | SERVICES, NATALEE | VILMA [...] OF | [address] | [place], [place] | | | CARDIOLOGY | [address] | [address] | | + + + + + [...] + + | [facility] GEET OF | [address] | [place], [place] | | | CARDIOLOGY | [address] | [address] | | + + + + + [...] DEPT OF | [address] | [place], [place] | | | CARDIOLOGY | [address] | [address] | | + + + + + [...] [facility] OF | [address] | [place], [place] | | | CARDIOLOGY | [address] | [address] | | + + + + + [...] | | | LABORATORY | | | ANGUILLAN | | | SERVICES, | | | [...] | + + + + + | [facility] | [address] | [place] [address] | | | SERVICES, CORE | [address] | | | + + + + + MAGNESIUM, PLASMA (11/21/2017 4:17 AM PDT) + +-------+ + + + | Component | Value | Ref Range | Performed | Pathologist | | | | | At | Signature | + +-------+ + + + | MAGNESIUM,P | 2.1 | 1.6 - 2.6 mg/dL | [facility] | | | LASMA | [...] [facility] | [address] | [place] [address] | | | SERVICES, CORE | [address] | | | + + + + + [facility] VENOUS DUPLEX LOWER EXTREMITY BILAT COMP [...] Note | + + | Service Account, [facility] In Interface - 11/19/2017 11:26 AM PDT [...] + + | [facility] GEET OF | [address] | [place], [place] | | | CARDIOLOGY | [address] | [address] | | + + + + + [...] DEPT OF | [address] | [place], [place] | | | CARDIOLOGY | [address] | [address] | | + + + + + [...] [facility] | [address] | [place] [address] | | | NATALEE WORTHINGTON | VILMA [...] [facility] | [address] | [place] [address] | | | NATALEE WORTHINGTON | VIL[address] [...] + | [facility] - | [address] | [place] [address] | | | [place] | | | [...] [facility] | [address] | [place] [address] | | | SERVICES, CORE | PARK [...] | + + + + + | [facility] [employer] | [address] | [place] [address] | | | SERVICES, CORE | VIL[address] [...] | | | LABORATORY | | | ANGUILLAN | | | SERVICES, | | | [...] + + | [facility] | [address] | [place] [address] | | | SERVICES, CORE | P[address] [...] | + + + + + | [facility] | [address] | [place] [address] | | | NATALEE WORTHINGTON | VILMA [...] DEPT OF | [address] | [place], [place] | | | CARDIOLOGY | [address] | [address] | | + + + + + [...] DEPT OF | [address] | [place], [place] | | | CARDIOLOGY | [address] | [address] | | + + + + + [...] [facility] | [address] | [place] [address] | | | NATALEE WORTHINGTON | VIL[address] [...] [place], [place] | | | CARDIOLOGY | [facility] | [address] | | + + + + + [...] | | | LABORATORY | | | ANGUILLAN | | | SERVICES, | | | [...] | + + + + + | [employer] | [address] | [place] [address] | | | NATALEE WORTHINGTON | VIL[address] [...] | + + + + + | [facility] | [address] | [place] [address] | | | SERVICES, NATALEE | VILMA [...] DEPT OF | [address] | [place], [place] | | | CARDIOLOGY | [address] | [address] | | + + + + + [...] | + + + + + | [facility] | [address] | [place] [address] | | | SERVICES, CORE | VIL[address] [...] | | | LABORATORY | | | ANGUILLAN | | | SERVICES, | | | [...] | + + + + + | [employer] | [address] | [place] [address] | | | SERVICES, NATALEE | VILMA [...] Isabella | | | | | | Zadia SILVER- ORDoroteo Lorraine | | | | + + [...] + | [facility] - | [address] | [place] [address] | | | [place] | | | [...] Note | + + | Service Account, [facility] In Interface - 11/12/2017 1:46 PM PDT [...] DEPT OF | [address] | [place], [place] | | | CARDIOLOGY | [address] | [address] | | + + + + + [...] [facility] | [address] | [place] [address] | | | SERVICES, CORE | [address] [...] | | | Interpretation By: | | [place] | | | | Abel [place]- [place], [...] + | [facility] - | [address] | [place] [address] | | | [place] | | | [...] | + + + + + | [facility] DEPT OF | [address] | [place], [place] | | | CARDIOLOGY | [address] | [address] | | + + + + + [...] | + + + + + | [facility]ORY | [address] | [place] [address] | | | NATALEE WORTHINGTON | VILMA [...] + | [facility] - | [address] | [place] [address] | | | [place] | | | [...] [facility] | [address] | [place] [address] | | | NATALEE WORTHINGTON | VILMA [...] | + + + + + | [facility] | [address] | [place] [address] | | | SERVICES, CORE | VILMA [...] [facility] | [address] | [place] [address] | | | SERVICES, CORE | [address] [...] | | | LABORATORY | | | ANGUILLAN | | | SERVICES, | | | [...] | + + + + + | [facility]ORY | [address] | [place] [address] | | | NATALEE WORTHINGTON | VILMA [...] [facility] | [address] | [place] [address] | | | NATALEE WORTHINGTON | PARK [...] | + + + + + | [facility] | [address] | [place] [address] | | | SERVICES, CORE | PARK [...] | | | LABORATORY | | | ANGUILLAN | | | SERVICES, | | | [...] | + + + + + | [facility] | [address] | [place] [address] | | | SERVICES, CORE | [address] | | | + + + + + 12 LEAD ECG (11/10/2017 10:59 AM PDT) + + + + + + | Component | Value | Ref Range | Performed | Pathologist | | | | | At | Signature | + + + + + + | VENTRICULAR | 58 | bpm | [facility] DEPT | | | RATE [...] GEET OF | [address] | [place], [place] | | | CARDIOLOGY | [address] | [address] | | + + + + + [...] | + + + + + | [facility] | [address] | [place] [address] | | | SERVICES, CORE | [address] [...] | | | LABORATORY | | | ANGUILLAN | | | SERVICES, | | | [...] [facility] | [address] | [place] [address] | | | SERVICES, CORE | PARK [...] [facility] | [address] | [place] [address] | | | SERVICES, CORE | [address] [...] | | | LABORATORY | | | ANGUILLAN | | | SERVICES, | | | [...] the MDRD equation recommended by the | [facility] | | National Kidney Disease [...] | + + + + + | [facility] | [address] | [place] [address] | | | ELIN, NATALEE | VILMA [...] [facility] | [address] | [place] [address] | | | NATALEE WORTHINGTON | VILMA [...] | | | LABORATORY | | | ANGUILLAN | | | SERVICES, | | | [...] | + + + + + | [facility] | [address] | [place] [address] | | | SERVICES, CORE | VILMA [...] DEPT OF | [address] | [place], [place] | | | CARDIOLOGY | [address] | [address] | | + + + + + [...] + | [facility] DEPT OF | [address] | [place], [place] | | | CARDIOLOGY | [address] | [address] | | + + + + + [...] | | | LABORATORY | | | ANGUILLAN | | | SERVICES, | | | [...] | + + + + + | [facility] | [address] | [place] [address] | | | SERVICES, CORE | VILMA [...] | + + + + + | [facility] | [address] | [place] [address] | | | SERVICES, CORE | PARK [...] + + + + | PRODUCT | [id number] | | [facility] | | | UNIT [...] + + + + | EXPIRATION | [id number] | | [facility] | | | DATE [...] + + + + | BLOOD | [id number] | | [facility] | | | PRODUCT [...] | + + + + + | [facility] | [address] | [place] [address] | | | SERVICES, | [address] [...] + + + + | PRODUCT | [id number] | | [facility] | | | UNIT [...] + + + + | EXPIRATION | [id number] | | [facility] | | | DATE [...] + + + + | BLOOD | [id number] | | [facility] | | | PRODUCT [...] | + + + + + | [facility] | [address] | [place] [address] | | | SERVICES, | [address] [...] [facility] | [address] | [place] [address] | | | NATALEE WORTHINGTON | VILMA [...] | + + + + + | [facility] | [address] | [place] [address] | | | SERVICES, CORE | [address] [...] | | | LABORATORY | | | ANGUILLAN | | | SERVICES, | | | [...] + + + + + | [facility] | [address] | [place] [address] | | | SERVICES, NATALEE | [address] | | | + + + + + OPERATION RECORD (11/06/2017 12:27 AM PDT) + + | Procedure Note | + + | Magdiel Stock MD - 11/06/2017 12:27 AM PDT Date of Service: 11/05/2017 Attending | | Surgeon: Magdiel Stock MD Slasher(s): Rg Aiken MD | | Preoperative Diagnoses: [...] his head was placed in a horseshoe head baker with his C-collar still | | attached [...] the incision down to the cranium. 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 | [place], [place] | | | GLORIA GENAO OF [facility] | [address] | [address] | | | TESTS | | | [...] [facility] | [address] | [place], [place] | | | GLORIA GENAO OF [facility] | [address] | [address] | | | TESTS | | | [...] Note | + + | Service Account, [employer] Res In Interface - 11/05/2017 11:31 AM [...] | + + + + + | [facility] | [address] | [place] [address] | | | SERVICES, CORE | PARK [...] [facility] | [address] | [place] [address] | | | SERVICES, CORE | [address] [...] | | | LABORATORY | | | ANGUILLAN | | | SERVICES, | | | [...] the MDRD equation recommended by the | [facility] | | National Kidney Disease [...] | + + + + + | [facility] | [address] | [place] [address] | | | SERVICES, CORE | [address] [...] | + + + + + | [facility] | [address] | [place] [address] | | | ELIN, NATALEE | PARK [...] + + + + | PRODUCT | [id number] | | [facility] | | | UNIT [...] + + + + | EXPIRATION | [id number] | | [facility] | | | DATE [...] + + + + | BLOOD | [id number] | | [facility] | | | PRODUCT [...] [facility] | [address] | [place] [address] | | | SERVICES, | [address] [...] + + + + | PRODUCT | [id number] | | [facility] | | | UNIT [...] + + + + | EXPIRATION | [id number] | | [facility] | | | DATE [...] + + + + | BLOOD | [id number] | | [facility] | | | PRODUCT [...] | + + + + + | [facility] | [address] | [place] [address] | | | SERVICES, | [address] [...] | + + + + + | [facility] | [address] | [place] [address] | | | NATALEE WORTHINGTON | [address] [...] [facility] | [address] | [place] [address] | | | SERVICES, | [address] [...] | + + + + + | [facility] | [address] | [place] [address] | | | SERVICES, | [address] [...] | + + + + + | [facility] | [address] | [place] [address] | | | SERVICES, CORE | VILMA [...] + + | [facility] | [address] | [place], [place] | | | CARDIOLOGY | [address] | [address] | | + + + + + [...] | + + + + + | [facility] | [address] | [place] [address] | | | SERVICES, CORE | VILMA [...] | + + + + + | [facility] | [address] | [place] [address] | | | SERVICES, CORE | VILMA [...] + | [facility] | [address] | [place] [address] | | | [place] | | | | + + + [...] | + + + + + | [facility] | [address] | [place] [address] | | | SERVICES, CORE | VILMA [...] [facility] | [address] | [place] [address] | | | SERVICES, CORE | PARK [...] | | | LABORATORY | | | ANGUILLAN | | | SERVICES, | | | [...] | + + + + + | [facility] | [address] | [place] [address] | | | NATALEE WORTHINGTON | [address] [...] + + | [facility] | [address] | [place] [address] | | | NATALEE WORTHINGTON | [address] [...] | + + + + + | [facility] | [address] | [place] [address] | | | SERVICES, CORE | VIL[address] [...] | | | LABORATORY | | | ANGUILLAN | | | SERVICES, | | | [...] | + + + + + | [facility] | [address] | [place] [address] | | | ELIN, NATALEE | [address] | | | + + + + + MAGNESIUM, PLASMA (11/02/2017 6:14 AM PDT) + +-------+ + + + | Component | Value | Ref Range | Performed | Pathologist | | | | | At | Signature | + +-------+ + + + | MAGNESIUM,P | 1.9 | 1.6 - 2.6 mg/dL | [facility] | | | LASMA | | | [...] [facility] | [address] | [place] [address] | | | SERVICES, CORE | VILMA [...] | | | LABORATORY | | | ANGUILLAN | | | SERVICES, | | | [...] | + + + + + | [facility] | [address] | [place] [address] | | | ELIN, NATALEE | VILMA [...] DEPT OF | [address] | [place], [place] | | | CARDIOLOGY | [address] | [address] | | + + + + + [...] [facility] | [address] | [place] [address] | | | SERVICES, CORE | [address] [...] | | | LABORATORY | | | ANGUILLAN | | | SERVICES, | | | [...] | + + + + + | [facility] | [address] | [place] [address] | | | NATALEE WORTHINGTON | [address] [...] Final signature: Navjot | | | MD oYu 10/31/2017 8:21 PM Preliminary: Gage Solomon MD [...] DEPT OF | [address] | [place], [place] | | | CARDIOLOGY | [address] | [address] | | + + + + + [...] | | | LABORATORY | | | ANGUILLAN | | | SERVICES, | | | [...] | + + + + + | [facility] | [address] | [place] [address] | | | SERVICES, NATALEE | [address] [...] | + + + + + | [facility] | [address] | [place] [address] | | | SERVICES, CORE | VILMA [...] [facility] | [address] | [place], [place] | | | GLORIA GNEAO OF CARE | [address] | [address] | | | TESTS | | | [...] | + + + + + | [facility] | [address] | [place] [address] | | | SERVICES, NATALEE | [address] [...] | | | LABORATORY | | | ANGUILLAN | | | SERVICES, | | | [...] | + + + + + | [facility] | [address] | [place] [address] | | | SERVICES, CORE | VILMA [...] | | + +---------+ + + | [facility] | | | | | [facility] | | | | + +---------+ [...] [facility] | [address] | [place], [place] | | | [facility]ARE | [address] | [address] | | | TESTS | | | [...] [facility] | [address] | [place] [address] | | | SERVICES, CORE | PARK [...] | | | LABORATORY | | | ANGUILLAN | | | SERVICES, | | | [...] | + + + + + | [facility] | [address] | [place] [address] | | | SERVICES, NATALEE | [address] [...] - [facility] | [address] | [place], [place] | | | GLORIA GENAO OF [facility] | [address] | [address] | | | TESTS | | | [...] DEPT OF | [address] | [place], [place] | | | CARDIOLOGY | [address] | [address] | | + + + + + [...] [facility] | [address] | [place], [place] | | | GL[facility]IA GENAO OF CARE | [address] | [address] | | | TESTS | | | [...] - [facility] | [address] | [place], [place] | | | [facility] | [address] | [address] | | | TESTS | | | [...] | + + + + + | [facility] | [address] | [place] [address] | | | SERVICES, CORE | VILMA [...] + | [facility] | [address] | [place] [address] | | | [place] | | | [...] [facility] | [address] | [place] [address] | | | SERVICES, CORE | VILMA [...] [facility] | [address] | [place] [address] | | | SERVICES, CORE | PARK [...] | + + + + + | [facility] | [address] | [place] [address] | | | SERVICES, NATALEE | [address] [...] | | | LABORATORY | | | ANGUILLAN | | | SERVICES, | | | [...] [facility] | [address] | [place] [address] | | | SERVICES, CORE | [address]ARK [...] | + + + + + | [facility] | [address] | [place] [address] | | | SERVICES, CORE | [...] (H) | 70 - 99 mg/dL | [facility] - | | | GLUCOSE, [...] [facility] | [address] | [place], [place] | | | GL[facility]IA GENAO OF CARE | [address] | [address] | | | TESTS | | | [...] [facility] | [address] | [place], [place] | | | GL[facility]IA GENAO OF CARE | [address] | [address] | | | TESTS | | | [...] At | + + + | EXAM: VT CHEST PICC LINE CHECK HISTORY: picc done [...] Interface - 10/27/2017 6:29 PM PDT EXAM: VT CHEST | | PICC LINE CHECK HISTORY: [...] by: DECLAN LIPSCOMB Authorized by: CHAZ MUNOZ PICC/Sugar | | | Insertion Procedure Note Indications:Antibiotics and TPN Procedure | | | location: Unit:[facility] Room: 4 Providers: Attending name: | | [...] correct | | | patient, procedure, equipment, director of academic support and site/side marked as | | [...] vein. Catheter lot number: | | | [id number] with a length of 55 cm was [...] [facility] | [address] | [place], [place] | | | JOHN GENAO | [facility] | [address] | | | TESTS | | | [...] DEPT OF | [address] | [place], [place] | | | CARDIOLOGY | [address] | [address] | | + + + + + [...] [facility] | [address] | [place], [place] | | | [facility] | [address] | [address] | | | TESTS | | | | + + + + + MAGNESIUM, PLASMA (10/27/2017 4:30 AM PDT) + +-------+ + + + | Component | Value | Ref Range | Performed | Pathologist | | | | | At | Signature | + +-------+ + + + | MAGNESIUM,P | 1.9 | 1.6 - 2.6 mg/dL | [facility] [...] [facility] | [address] | [place] [address] | | | SERVICES, CORE | [address]ARK [...] | | | LABORATORY | | | ANGUILLAN | | | SERVICES, | | | [...] | + + + + + | [facility] | [address] | [place] [address] | | | NATALEE WORTHINGTON | [address] [...] [facility] | [address] | [place], [place] | | | GL[facility]IA GENAO OF CARE | [address] | [address] | | | TESTS | | | [...] [facility] | [address] | [place], [place] | | | [facility] | [address] | [address] | | | TESTS | | | [...] [facility] | [address] | [place], [place] | | | GL[facility]IA GENAO OF CARE | [address] | [address] | | | TESTS | | | [...] | + + + + + | [facility] | [address] | [place] [address] | | | SERVICES, CORE | PARK [...] | | | LABORATORY | | | ANGUILLAN | | | SERVICES, | | | [...] | + + + + + | [facility] | [address] | [place] [address] | | | SERVICES, CORE | VILMA [...] (H) | 70 - 99 mg/dL | [facility] - | | | GLUCOSE, [...] [facility] | [address] | [place], [place] | | | GLORIA GENAO OF [facility] | [facility] | [address] | | | TESTS | | | [...] | | | LABORATORY | | | ANGUILLAN | | | SERVICES, | | | [...] | + + + + + | [facility] | [address] | [place] [address] | | | SERVICES, CORE | VILMA [...] [facility] | [address] | [place], [place] | | | [facility] | [address] | [address] | | | TESTS | | | [...] DEPT OF | [address] | [place], [place] | | | CARDIOLOGY | [facility] | [address] | | + + + + + [...] [facility] | [address] | [place], [place] | | | [facility] GE[facility]O OF [facility] | [address] | [address] | | | TESTS | | | [...] + + | [facility] | [address] | [place], [place] | | | CARDIOLOGY | [address] | [address] | | + + + + + [...] | + + + + + | [facility] | [address] | [place] [address] | | | SERVICES, CORE | [address] [...] + | [facility] - | [address] | [place] [address] | | | [place] | | | [...] | + + + + + | [facility] | [address] | [place] [address] | | | SERVICES, NATALEE | [address] [...] | + + + + + | [facility] | [address] | [place] [address] | | | SERVICES, CORE | [address] | | | + + + + + TRIGLYCERIDES, PLASMA (10/24/2017 4:45 PM PDT) + +-------+ + + + | Component | Value | Ref Range | Performed | Pathologist | | | | | At | Signature | + +-------+ + + + | TRIGLYCERID | 93 | <150 mg/dL | [facility] | | | ES | | | [...] [facility] | [address] | [place] [address] | | | SERVICES, CORE | [address] [...] | + + + + + | [facility] | [address] | [place] [address] | | | SERVICES, CORE | VILMA [...] [facility] | [address] | [place] [address] | | | SERVICES, CORE | VILMA [...] + + | [facility] | [address] | [place] [address] | | | SERVICES, CORE | [address] [...] [facility] | [address] | [place] [address] | | | SERVICES, CORE | [address] [...] [facility] | [address] | [place] [address] | | | SERVICES, CORE | [address]ARK [...] | + + + + + | [facility] | [address] | [place] [address] | | | SERVICES, CORE | VILMA [...] [facility] | [address] | [place] [address] | | | SERVICES, CORE | [address]ARK [...] | | | LABORATORY | | | ANGUILLAN | | | SERVICES, | | | [...] the MDRD equation recommended by the | [facility] | | National Kidney Disease Education Program. [...] | + + + + + | [facility] | [address] | [place] [address] | | | ELIN, NATALEE | [address] [...] | | | correct patient, procedure, equipment, director of academic support and site/side | | | marked [...] | area Basilic vein. Catheter lot number: [id number] with a length of 55 | | [...] At | + + + | EXAM: VT CHEST 1 VIEW HISTORY: PICC placed-pt ready. [...] Interface - 10/24/2017 3:43 PM PDT EXAM: VT CHEST 1 | | VIEW HISTORY: PICC [...] report as now presented. Final signature: Julian ePrkins MD 10/24/2017 | | 3:42 PM Preliminary: [...] [facility] | [address] | [place], [place] | | | [facility] | [address] | [address] | | | TESTS | | | [...] | | Surgical Critical Care, PGY7 Pager: [phone] | | + + + CAPILLARY BLOOD [...] [facility] | [address] | [place], [place] | | | [facility] | [address] | [address] | | | TESTS | | | [...] [facility] | [address] | [place], [place] | | | [facility]ARE | [address] | [address] | | | TESTS | | | [...] | | | LABORATORY | | | ANGUILLAN | | | SERVICES, | | | [...] the MDRD equation recommended by the | [facility] | | National Kidney Disease [...] | + + + + + | [facility] | [address] | [place] [address] | | | NATALEE WORTHINGTON | VILMA [...] [facility] | [address] | [place] [address] | | | NATALEE WORTHINGTON | VILMA [...] [facility] | [address] | [place], [place] | | | GLORIA GENAO OF [facility] | [address] | [address] | | | TESTS | | | [...] | + + + + + | [facility] | [address] | [place] [address] | | | SERVICES, CORE | VILMA [...] | | | LABORATORY | | | ANGUILLAN | | | SERVICES, | | | [...] | + + + + + | [facility] | [address] | [place] [address] | | | SERVICES, NATALEE | VILMA [...] + + | [facility] | [address] | [place], [place] | | | CARDIOLOGY | [address] | [address] | | + + + + + IR GASTROSTOMY TUBE EXCHANGE (10/22/2017 2:42 PM PDT) + + | Specimen | + + | | + + + + + | Narrative | Performed At | + + + | Procedure: Gastrostomy tube exchange Primary attending | [facility] | | microstrategy architect: Shade Goodwin M.D. Preoperative diagnosis: | RADIOLOGY VOICE | | Malfunctioning Gastrostomy tube Postoperative diagnosis: Same | RECOGNITION | | Operations: Operation 1. Removal of existing Gastrostomy tube | | | over a guide wire Operation 2. Placement of 24 Vietnamese GABRIEL | | | gastrostomy over guide [...] a stiff glide wire the new 24 Vietnamese gastrostomy tube was | | | inserted. [...] Procedure: | | Gastrostomy tube exchangePrimary attending microstrategy architect: Shade Goodwin | | BrynPreoperative diagnosis: Malfunctioning Gastrostomy tubePostoperative diagnosis: | | SameOperations:Operation 1. Removal of existing Gastrostomy tube over a guide | | wireOperation 2. Placement of 24 Vietnamese GABRIEL gastrostomy over guide wireNo sedation was [...] glide wire the | | new 24 Vietnamese gastrostomy tube was inserted. The position of [...] stiff g lide wire the new 24 Vietnamese | |gastrostomy tube was inserted. The position [...] gastrostomy tube although the disk of brice frnakie old gastrostomy tube was positioned at 8 [...] Note | + + | Service Account, [employer] Software Res In Interface - 10/22/2017 10:34 AM [...] | | + +---------+ + + | [facility] | | | | | VAS [...] + + | [facility] | [address] | [place], [place] | | | CARDIOLOGY | [address] | [address] | | + + + + + [...] balloon. Significant results were discussed with | Prabhakar Talavera on 10/22/2017 4:30 AM by Dae [...] | + + + + + | [facility] | [address] | [place] [address] | | | SERVICESNATALEE | [address] [...] | | | LABORATORY | | | ANGUILLAN | | | SERVICES, | | | [...] | + + + + + | [facility] | [address] | [place] [address] | | | SERVICES, CORE | VILMA [...] + + | [facility] | [address] | [place], [place] | | | CARDIOLOGY | [address] | [address] | | + + + + + [...] | | | LABORATORY | | | ANGUILLAN | | | SERVICES, | | | [...] | + + + + + | [facility] | [address] | [place] [address] | | | SERVICES, CORE | [address] [...] | + + + + + | [facility] | [address] | [place] [address] | | | SERVICES, CORE | VILMA [...] DEPT OF | [address] | [place], [place] | | | CARDIOLOGY | [address] | [address] | | + + + + + [...] | + + + + + | [facility] | [address] | [place] [address] | | | NATALEE WORTHINGTON | [address] [...] | | | LABORATORY | | | ANGUILLAN | | | SERVICES, | | | [...] | + + + + + | [facility] | [address] | [place] [address] | | | SERVICES, CORE | [address] | | | + + + + + 12 LEAD ECG (10/17/2017 9:34 AM PDT) + + + + + + | Component | Value | Ref Range | Performed | Pathologist | | | | | At | Signature | + + + + + + | VENTRICULAR | 58 | bpm | [facility]PT | | | RATE [...] | + + + + + | [facility] | [address] | [place], [place] | | | CARDIOLOGY | [address] | [address] | | + + + + + [...] | | | LABORATORY | | | ANGUILLAN | | | SERVICES, | | | [...] [facility] | [address] | [place] [address] | | | SERVICES, CORE | [address]ARK [...] [facility] | [address] | [place] [address] | | | SERVICES, CORE | VILMA [...] + | [facility] | [address] | [place], [place] | | | CARDIOLOGY | [address] | [address] | | + + + + + [...] | | | LABORATORY | | | ANGUILLAN | | | SERVICES, | | | [...] the MDRD equation recommended by the | [facility] | | National Kidney Disease [...] [facility] | [address] | [place] [address] | | | SERVICES, CORE | [address] [...] | + + + + + | [facility] | [address] | [place] [address] | | | SERVICES, CORE | VILMA [...] | | + +---------+ + + | [facility] | | | | | [facility] US | | | | + +---------+ [...] DEPT OF | [address] | [place], [place] | | | CARDIOLOGY | [address] | [address] | | + + + + + CAPILLARY BLOOD GLUCOSE (NO CHG), POC (10/15/2017 6:01 AM PDT) + +---------+ + + + | Component | Value | Ref Range | Performed | Pathologist | | | | | At | Signature | + +---------+ + + + | BLOOD | 134 (H) | 70 - 99 mg/dL | [facility] - | | | GLUCOSE, | | [...] [facility] | [address] | [place], [place] | | | [facility]ARE | [facility] | [address] | | | TESTS | | | [...] | + + + + + | [facility] | [address] | [place] [address] | | | NATALEE WORTHINGTON | VILMA [...] + + + + + | [facility] | [address] | [place], [place] | | | [facility]O [facility] | [facility] | [address] | | | TESTS | | | [...] + + | [facility] | [address] | [place], [place] | | | CARDIOLOGY | [address] | [address] | | + + + + + [...] [facility] | [address] | [place] [address] | | | NATALEE WORTHINGTON | VILMA [...] | | | LABORATORY | | | ANGUILLAN | | | SERVICES, | | | [...] | + + + + + | [facility] | [address] | [place] [address] | | | SERVICES, CORE | VILMA [...] | + + + + + | [facility] | [address] | [place] [address] | | | SERVICES, CORE | VILMA [...] [facility] | [address] | [place], [place] | | | GLORIA GENAO OF CARE | [address] | [address] | | | TESTS | | | [...] - [facility] | [address] | [place], [place] | | | [place] [facility]INT OF CARE | [address] | [address] | | | TESTS | | | [...] | + + + + + | [facility] | [address] | [place] [address] | | | SERVICES, CORE | VIL[address] [...] | | | LABORATORY | | | ANGUILLAN | | | SERVICES, | | | [...] | + + + + + | [facility] | [address] | [place] [address] | | | NATALEE WORTHINGTON | [address] | | | + + + + + OPERATION RECORD (10/12/2017 8:50 PM PDT) + + | Procedure Note | + + | Pilar Cotto MD - 10/12/2017 8:50 PM PDT Date of Service: 10/12/2017 | | Attending Surgeon: Chaz Munoz MD Slasher(s): Randell Dixon M.D., | | fellow. George [...] saline. We then | | placed a 19-Vietnamese drain deep into the abscess cavity, tracking [...] 10/12/2017 19:50:06DT: 10/12/2017 20:50:54Job #: | | [id number] | + + X-RAY PORTABLE CHEST 1 VIEW (10/12/2017 7:50 PM PDT) + + | Specimen | + + | | + + + + + | Narrative | Performed At | + + + | EXAM: VT CHEST 1 VIEW HISTORY: Evaluate endotracheal tube [...] Interface - 10/13/2017 9:04 AM PDT EXAM: VT CHEST 1 | | VIEW HISTORY: Evaluate [...] 10/13/2017 9:03 AM Preliminary: Gurpreet Dunne MD Dictation initiated: Gurpreet Dunne MD [...] | | fellow George Noriega MD R2 Caorn Cotto MD R2 | | | Preoperative [...] [facility] | [address] | [place], [place] | | | [facility] | [address] | [address] | | | TESTS | | | [...] Note | + + | Service Account, [employer] Software Res In Interface - 10/12/2017 5:05 PM [...] Sanchez MD 10/12/2017 5:04 PM Preliminary: Dae Wen | | MD Dmitriy Dictation initiated: Dae [...] [facility] | [address] | [place] [address] | | | SERVICES, CORE | [address]ARK [...] | | | LABORATORY | | | ANGUILLAN | | | SERVICES, | | | [...] | + + + + + | [facility] | [address] | [place] [address] | | | SERVICES, CORE | [address]ARK [...] [facility] | [address] | [place] [address] | | | NATALEE WORTHINGTON | VILMA [...] DEPT OF | [address] | [place], [place] | | | CARDIOLOGY | [address] | [address] | | + + + + + [...] + + | [facility] | [address] | [place], [place] | | | CARDIOLOGY | [address] | [address] | | + + + + + [...] | + + + + + | [facility] | [address] | [place] [address] | | | ELIN, CORE | PARK [...] [facility] | [address] | [place] [address] | | | SERVICES, CORE | PARK [...] | | | LABORATORY | | | ANGUILLAN | | | SERVICES, | | | [...] | + + + + + | [facility] | [address] | [place] [address] | | | NATALEE WORTHINGTON | [address] | | | + + + + + PROCEDURE NOTE (10/10/2017 10:00 PM PDT) + + + | Narrative | Performed At | + + + | Darius Link MD 10/12/2017 11:11 AM OPERATIVE REPORT | | | DATE OF OPERATION: 10/10/2017 ATTENDING SURGEON: 1. Dr. Munoz | | | WARDROBE TECHNICIAN: 1. Darius Link MD INDICATIONS: Dysphagia | | | and need for snf nutrition access PREOPERATIVE DIAGNOSIS: | | | 1.Dysphagia and need for snf nutrition access | | | POSTOPERATIVE DIAGNOSIS: [...] OPERATIVE NOTE Procedure Date: 10/10/2017 Author: Darius Radford | | MD Nikolay Attending Physician: Dr. [...] | | | [place] [id number] Chief Resident | | | Neurosurgery | [...] [facility] | [address] | [place] [address] | | | SERVICES, CORE | PARK [...] | | | LABORATORY | | | ANGUILLAN | | | SERVICES, | | | [...] the MDRD equation recommended by the | [facility] | | National Kidney Disease [...] | + + + + + | [facility] | [address] | [place] [address] | | | SERVICES, CORE | [address] | | | + + + + + MAGNESIUM, PLASMA (10/10/2017 2:02 PM PDT) + +-------+ + + + | Component | Value | Ref Range | Performed | Pathologist | | | | | At | Signature | + +-------+ + + + | MAGNESIUM,P | 1.9 | 1.6 - 2.6 mg/dL | [facility] | | | LASMA | [...] [facility] | [address] | [place] [address] | | | ELIN, NATALEE | [address] | | | + + + + + OPERATION RECORD (10/10/2017 12:40 PM PDT) + + | Procedure Note | + + | Magdiel Stock MD - 10/10/2017 12:40 PM PDT Date of Service: 10/10/2017 Attending | | Surgeon: Magdiel Stock MD Slasher(s): Cecilia Hernandez, | | . Preoperative Diagnoses: [...] This is a 67-year-old male. Please see [facility] for full details. He | | [...] | the note for this encounter.Sonal Nunez [facility] [id number] [facility] | | [place] [id number] Orina, MDFAH/MODLDD: | | 10/10/2017 11:52:15DT: 10/10/2017 12:40:41Job #: [id number] | | | | | |I was present for the critical portions of the procedure as described in the note for this encounter. | | | |Magdiel Stock MD | | | |Magdiel Stock MD | |[address] | |[address] [facility] | |[facility] | |[place] [address] | |[phone] | | | | | |Magdiel Stock MD | |JAYLAN/DUC | | | | | | /[id number] | + + X-RAY ABDOMEN 1 VIEW [...] + | [facility] | [address] | [place] [address] | | | [place] | | | [...] + | [facility] | [address] | [place] [address] | | | [place] | | | [...] + | [facility] | [address] | [place] [address] | | | [facility] | | | | + + + [...] + | [facility] | [address] | [place] [address] | | | [place] | | | [...] + | [facility] | [address] | [place] [address] | | | [place] | | | [...] Gram Stain: No squamous epithelial cells | [place] | | Many polymorphonuclear cells No organisms seen | | + + + + + + + + | Performing | Address | City/State/Zipcode | Phone Number | | Organization | | | | + + + + + | [facility] | [address] | [place] [address] | | | [place] | | | [...] detected | [facility] - | | | [place] | + + + + + + + + | Performing | Address | City/State/Zipcode | Phone Number | | Organization | | | | + + + + + | [facility] | [address] | [place] [address] | | | [place] | | | | + + + [...] Gram Stain: No squamous epithelial cells | [place] | | Few polymorphonuclear cells No organisms seen | | + + + + + + + + | Performing | Address | City/State/Zipcode | Phone Number | | Organization | | | | + + + + + | [facility] - | [address] | [place] [address] | | | [place] | | | | + + + [...] | | cells No organisms seen | [place] | + + + + + + + + | Performing | Address | City/State/Zipcode | Phone Number | | Organization | | | | + + + + + | [facility] | [address] | [place] [address] | | | [place] | | | [...] + | [facility] | [address] | [place] [address] | | | [place] | | | [...] + | [facility] | [address] | [place] [address] | | | [place] | | | | + + + [...] + | [facility] | [address] | [place] [address] | | | [place] | | | [...] + | [facility] | [address] | [place] [address] | | | [place] | | | [...] Gram Stain: No squamous epithelial cells | [place] | | Moderate polymorphonuclear cells No organisms seen | | + + + + + + + + | Performing | Address | City/State/Zipcode | Phone Number | | Organization | | | | + + + + + | [facility] | [address] | [place] [address] | | | [place] | | | | + + + [...] | + + + + + | [facility] | [address] | [place] [address] | | | [place] | | | | + + + [...] + | [facility] | [address] | [place] [address] | | | [place] | | | [...] Gram Stain: No squamous epithelial cells | [place] | | Moderate polymorphonuclear cells No organisms seen | | + + + + + + + + | Performing | Address | City/State/Zipcode | Phone Number | | Organization | | | | + + + + + | [facility] | [address] | [place] [address] | | | [place] | | | | + + + [...] | | Smear: AFB not detected | [facility] - | | | [place] | + + + + + + + + | Performing | Address | City/State/Zipcode | Phone Number | | Organization | | | | + + + + + | [facility] | [address] | [place] [address] | | | [place] | | | | + + + [...] | + + + + + | [facility] | [address] | [place] [address] | | | SERVICES, CORE | VILMA [...] | + + + + + | [facility] | [address] | [place] [address] | | | NATALEE WORTHINGTON | VILMA [...] | + + + + + | [facility] | [address] | [place] [address] | | | SERVICES, NATALEE | VILMA [...] | | | LABORATORY | | | ANGUILLAN | | | SERVICES, | | | [...] | + + + + + | [facility] | [address] | [place] [address] | | | SERVICES, CORE | [address] | | | + + + + + 12 LEAD ECG (10/10/2017 2:08 AM PDT) + + + + + + | Component | Value | Ref Range | Performed | Pathologist | | | | | At | Signature | + + + + + + | VENTRICULAR | 117 | bpm | [facility] | | | RATE [...] + + | [facility] | [address] | [place], [place] | | | CARDIOLOGY | [address] | [address] | | + + + + + [...] + + + + | PRODUCT | [id number] | | [facility] | | | UNIT [...] + + + + | EXPIRATION | [id number] | | [facility] | | | DATE [...] + + + + | BLOOD | [id number] | | [facility] | | | PRODUCT [...] [facility] | [address] | [place] [address] | | | SERVICES, | [address] [...] + + + + | PRODUCT | [id number] | | [facility] | | | UNIT [...] + + + + | EXPIRATION | [id number] | | [facility] | | | DATE [...] + + + + | BLOOD | [id number] | | [facility] | | | PRODUCT [...] [facility] | [address] | [place] [address] | | | SERVICES, | [address] [...] [facility] | [address] | [place] [address] | | | SERVICES, | [address] [...] | + + + + + | [facility] | [address] | [place] [address] | | | ELIN, | VILMA DAVE [...] [facility] | [address] | [place] [address] | | | SERVICES, | [address] [...] | + + + + + | [facility] | [address] | [place] [address] | | | ELIN, NATALEE | VILMA [...] DEPT OF | [address] | [place], [place] | | | CARDIOLOGY | [address] | [address] | | + + + + + [...] Service Account, Kostas Casper In Interface - 10/08/2017 10:47 AM PDT [...] [facility] | | | | | [facility] US | | | | + +---------+ [...] - [facility] | [address] | [place], [place] | | | [facility] | [address] | [address] | | | TESTS | | | [...] | + + + + + | [facility] | [address] | [place] [address] | | | SERVICES, CORE | [address] [...] [facility] | [address] | [place] [address] | | | SERVICES, CORE | PARK [...] | | | LABORATORY | | | ANGUILLAN | | | SERVICES, | | | [...] the MDRD equation recommended by the | [facility] | | National Kidney Disease [...] | + + + + + | [facility] | [address] | [place] [address] | | | NATALEE WORTHINGTON | VILMA [...] (H) | 70 - 99 mg/dL | [facility] - | | | GLUCOSE, [...] [facility] | [address] | [place], [place] | | | [facility] | [address] | [address] | | | TESTS | | | [...] [facility] | [address] | [place], [place] | | | GLORIA GENAO OF CARE | [facility] | [address] | | | TESTS | | | [...] MARKHRISAM | [address] | [place], [place] | | | GL[facility] GENAO OF CARE | [facility] | [address] | | | TESTS | | | [...] (H) | 70 - 99 mg/dL | [facility] - | | | GLUCOSE, [...] [facility] | [address] | [place], [place] | | | [facility]INT [facility] CARE | [address] | [address] | | | TESTS | | | [...] [facility] | [address] | [place], [place] | | | GL[facility]IA GENAO OF [facility] | [facility] | [address] | | | TESTS | | | [...] | + + + + + | [facility] | [address] | [place] [address] | | | SERVICES, CORE | [address] | | | + + + + + MAGNESIUM, PLASMA (10/07/2017 5:05 AM PDT) + +-------+ + + + | Component | Value | Ref Range | Performed | Pathologist | | | | | At | Signature | + +-------+ + + + | MAGNESIUM,P | 2.1 | 1.6 - 2.6 mg/dL | [facility] | | | [facility] | | | [...] [facility] | [address] | [place] [address] | | | NATALEE WORTHINGTON | VILMA [...] | | | LABORATORY | | | ANGUILLAN | | | SERVICES, | | | [...] | + + + + + | [facility] | [address] | [place] [address] | | | SERVICES, NATALEE | VILMA [...] [facility] | [address] | [place], [place] | | | [facility] | [address] | [address] | | | TESTS | | | [...] - [facility] | [address] | [place], [place] | | | [facility] | [address] | [address] | | | TESTS | | | [...] DEPT OF | [address] | [place], [place] | | | CARDIOLOGY | [address] | [address] | | + + + + + [...] [facility] | [address] | [place], [place] | | | GLORIA GENAO OF [facility] | [address] | [address] | | | TESTS | | | [...] | + + + + + | [facility] | [address] | [place] [address] | | | SERVICES, CORE | [address] | | | + + + + + MAGNESIUM, PLASMA (10/06/2017 7:25 AM PDT) + +-------+ + + + | Component | Value | Ref Range | Performed | Pathologist | | | | | At | Signature | + +-------+ + + + | MAGNESIUM,P | 2.0 | 1.6 - 2.6 mg/dL | [facility] | | | LASMA | [...] [facility] | [address] | [place] [address] | | | SERVICES, NATALEE | VILMA [...] | | | LABORATORY | | | ANGUILLAN | | | SERVICES, | | | [...] | + + + + + | [facility] | [address] | [place] [address] | | | SERVICES, NATALEE | VILMA [...] [facility] | [address] | [place], [place] | | | [facility] GENAO OF CARE | [facility] | [address] | | | TESTS | | | [...] [facility] | [address] | [place], [place] | | | GLORIA GENAO OF [employer] | [facility] | [address] | | | TESTS | | | [...] P[facility]ET[facility] | [address] | [place], [place] | | | [facility] | [address] | [address] | | | TESTS | | | [...] [facility] | [address] | [place], [place] | | | HILL, POINT OF CARE | [address] | [address] | | | TESTS | | | [...] DEPT OF | [address] | [place], [place] | | | CARDIOLOGY | [address] | [address] | | + + + + + [...] [facility] | [address] | [place] [address] | | | NATALEE WORTHINGTON | VILMA [...] | + + + + + | [facility] | [address] | [place] [address] | | | SERVICES, CORE | PARK [...] | | | LABORATORY | | | ANGUILLAN | | | SERVICES, | | | [...] | + + + + + | [facility] | [address] | [place] [address] | | | SERVICES, CORE | VILMA [...] P[facility]ETT | [address] | [place], [place] | | | GLORIA GENAO OF [facility] | [facility] | [address] | | | TESTS | | | [...] [facility] | [address] | [place], [place] | | | GLORIA GENAO OF [facility] | [facility] | [address] | | | TESTS | | | [...] (H) | 70 - 99 mg/dL | [facility] - | | | GLUCOSE, [...] [facility] | [address] | [place], [place] | | | [facility] | [address] | [address] | | | TESTS | | | [...] P[facility]ET[facility] | [address] | [place], [place] | | | GL[facility]IA GENAO OF CARE | [facility] | [address] | | | TESTS | | | [...] [facility] | [address] | [place], [place] | | | [facility] | [facility] | [address] | | | TESTS | | | [...] [facility] | [address] | [place] [address] | | | SERVICES, CORE | [address]ARK [...] [facility] | [address] | [place] [address] | | | SERVICES, CORE | [address] [...] | | | LABORATORY | | | ANGUILLAN | | | SERVICES, | | | [...] the MDRD equation recommended by the | [facility] | | National Kidney Disease Education Program. [...] | + + + + + | [facility] | [address] | [place] [address] | | | NATALEE WORTHINGTON | VILMA [...] [facility] | [address] | [place], [place] | | | [facility]ARE | [address] | [address] | | | TESTS | | | [...] P[facility]ETT | [address] | [place], [place] | | | GL[facility]IA GENAO OF CARE | [address] | [address] | | | TESTS | | | [...] [facility] | [address] | [place] [address] | | | SERVICES, CORE | PARK [...] by | | | | | | [employer],500 | | | | | | Rogelio Pickard, [facility] [place] | | | | | | [id number] | | | | | | [phone]. | | | | | | Gui [...] [facility] | [address] | [place], [place] | | | [facility] | | [address] | | + + + + + [...] | + + + + + | [facility] | [address] | [place] [address] | | | SERVICES, CORE | VILMA [...] [facility] | [address] | [place] [address] | | | SERVICES, CORE [...] modified from | [facility] | | original gas distribution and emergency clerk's approved specifications. The performance | LABORATORY | | of the BOWLING ALLEY ATTENDANT HIV Combo test, with or without confirmation, [...] | + + + + + | [employer] | [address] | [place] [address] | | | SERVICES, SPECIAL | [address] | | | | IMM + [...] [facility] | [address] | [place], [place] | | | GLORIA GENAO OF CARE | [address] | [address] | | | TESTS | | | [...] RAPHAELAM | [address] | [place], [place] | | | [facility] | [facility] | [address] | | | TESTS | | | [...] | + + + + + | [facility] | [address] | [place] [address] | | | SERVICES, CORE | [address]ARK [...] [facility] | [address] | [place] [address] | | | SERVICES, [facility] | [address] | | | + [...] | | | LABORATORY | | | ANGUILLAN | | | SERVICES, | | | [...] | + + + + + | [facility] | [address] | [place] [address] | | | ELIN, NATALEE | VILMA [...] 96 | 70 - 99 mg/dL | [facility] - | | | GLUCOSE, [...] [facility] | [address] | [place], [place] | | | [facility]ARE | [address] | [address] | | | TESTS | | | [...] PAWANQUAM | [address] | [place], [place] | | | [facility] | [address] | [address] | | | TESTS | | | [...] DEPT OF | [address] | [place], [place] | | | CARDIOLOGY | [address] | [address] | | + + + + + [...] At | + + + | EXAM: VT CHEST 1 VIEW HISTORY: Evaluate PICC placement [...] Note | + + | Service Account, [facility] In Interface - 10/02/2017 2:07 PM PDT EXAM: VT CHEST 1 | | VIEW HISTORY: Evaluate [...] + | [facility] | [address] | [place], [place] | | | [facility]INT [facility] CARE | [address] | [address] | | | TESTS | | | | + + + + + X-RAY PORTABLE CHEST 1 VIEW (10/02/2017 8:56 AM PDT) + + | Specimen | + + | | + + + + + | Narrative | Performed At | + + + | EXAM: VT CHEST 1 VIEW HISTORY: new leukocytosis, eval [...] 10/02/2017 10:20 AM by | | | Mracelo Morley MD. I have personally reviewed the [...] Interface - 10/02/2017 10:27 AM PDT EXAM: VT CHEST 1 | | VIEW HISTORY: new [...] [facility] | [address] | [place], [place] | | | GL[facility]IA GENAO [facility] | [address] | [address] | | | TESTS | | | [...] [facility] | [address] | [place] [address] | | | NATALEE WORTHINGTON | VILMA [...] | + + + + + | [facility] | [address] | [place] [address] | | | NATALEE WORTHINGTON | [address]ARK [...] | | | LABORATORY | | | ANGUILLAN | | | SERVICES, | | | [...] | + + + + + | [facility] | [address] | [place] [address] | | | SERVICES, CORE | VILMA [...] [facility] | [address] | [place], [place] | | | GL[facility]IA GENAO OF CARE | [address] | [address] | | | TESTS | | | [...] + + | [facility] | [address] | [place], [place] | | | [facility] | [address] | [address] | | | TESTS | | | [...] Note | + + | Service Account, [facility] In Interface - 10/01/2017 2:15 PM [...] [facility] | [address] | [place], [place] | | | GL[facility]IA GENAO [facility] | [address] | [address] | | | TESTS | | | [...] Note | + + | Service Account, [facility] In Interface - 10/01/2017 11:34 AM PDT [...] + + + | [facility] | [address] | [place], [place] | | | [facility] | [address] | [address] | | | TESTS | | | [...] [facility] | [address] | [place] [address] | | | NATALEE WORTHINGTON | VILMA [...] | + + + + + | [facility] | [address] | [place] [address] | | | NATALEE WORTHINGTON | [address]ARK [...] | | | LABORATORY | | | ANGUILLAN | | | SERVICES, | | | [...] | + + + + + | [employer] | [address] | [place] [address] | | | SERVICES, CORE | PARK [...] [facility] | [address] | [place], [place] | | | GLORIA GENAO OF CARE | [address] | [address] | | | TESTS | | | [...] RAPHAELAM | [address] | [place], [place] | | | [facility]ARE | [address] | [address] | | | TESTS | | | [...] DEPT OF | [address] | [place], [place] | | | CARDIOLOGY | [address] | [address] | | + + + + + [...] [facility] | [address] | [place], [place] | | | GL[facility]IA GENAO OF [facility] | [facility] | [address] | | | TESTS | | | [...] [facility] | [address] | [place], [place] | | | [facility]INT OF CARE | [facility] | [address] | | | TESTS | | | [...] | + + + + + | [facility] | [address] | [place] [address] | | | SERVICES, CORE | VILMA [...] [facility] | [address] | [place] [address] | | | SERVICES, CORE | PARK [...] | | | LABORATORY | | | ANGUILLAN | | | SERVICES, | | | [...] the MDRD equation recommended by the | [facility] | | National Kidney Disease [...] | + + + + + | [facility] | [address] | [place] [address] | | | SERVICES, CORE | PARK [...] - [facility] | [address] | [place], [place] | | | [facility] | [address] | [address] | | | TESTS | | | [...] [facility] | [address] | [place], [place] | | | [facility] | [address] | [address] | | | TESTS | | | [...] [facility] | [address] | [place], [place] | | | [facility]ARE | [address] | [address] | | | TESTS | | | [...] DEPT OF | [address] | [place], [place] | | | CARDIOLOGY | [address] | [address] | | + + + + + [...] [facility] | [address] | [place], [place] | | | [facility] | [address] | [address] | | | TESTS | | | [...] | + + + + + | [facility] | [address] | [place] [address] | | | SERVICES, CORE | [address]ARK [...] | | | LABORATORY | | | ANGUILLAN | | | SERVICES, | | | [...] [facility] | [address] | [place] [address] | | | SERVICES, CORE | [address]ARK [...] | + + + + + | [facility] | [address] | [place] [address] | | | NATALEE WORTHINGTON | VILMA [...] [facility] | [address] | [place], [place] | | | [facility]ARE | [address] | [address] | | | TESTS | | | [...] [facility] | [address] | [place], [place] | | | [facility] GE[facility] [employer] | [facility] | [address] | | | TESTS | | | [...] [facility] | [address] | [place], [place] | | | [facility] GENAO OF CARE | [address] | [address] | | | TESTS | | | [...] DEPT OF | [address] | [place], [place] | | | CARDIOLOGY | [address] | [address] | | + + + + + CAPILLARY BLOOD GLUCOSE (NO CHG), POC (09/28/2017 6:47 AM PDT) + +---------+ + + + | Component | Value | Ref Range | Performed | Pathologist | | | | | At | Signature | + +---------+ + + + | BLOOD | 147 (H) | 70 - 99 mg/dL | [facility] - | | | GLUCOSE, [...] [facility] | [address] | [place], [place] | | | [facility]ARE | [address] | [address] | | | TESTS | | | [...] [facility] | [address] | [place] [address] | | | NATALEE WORTHINGTON | VILMA [...] | + + + + + | [facility] | [address] | [place] [address] | | | SERVICES, CORE | [address] [...] | | | LABORATORY | | | ANGUILLAN | | | SERVICES, | | | [...] | + + + + + | [facility] | [address] | [place] [address] | | | SERVICES, CORE | VILMA [...] (H) | 70 - 99 mg/dL | [facility] - | | | GLUCOSE, [...] [facility] | [address] | [place], [place] | | | [facility] [employer] | [facility] | [address] | | | TESTS | | | [...] + | [facility] | [address] | [place], [place] | | | [facility]ARE | [address] | [address] | | | TESTS | | | [...] now | | | presented. Final signature: Juilan Tinoco MD 09/27/2017 2:17 PM | | [...] [facility] | [address] | [place], [place] | | | [facility] GE[facility] [employer] | [address] | [address] | | | TESTS | | | [...] RAP[facility]EL[facility] | [address] | [place], [place] | | | [facility]INT [facility] CARE | [address] | [address] | | | TESTS | | | [...] | + + + + + | [facility] | [address] | [place] [address] | | | SERVICES, CORE | PARK [...] [facility] | [address] | [place] [address] | | | SERVICES, CORE | PARK [...] | | | LABORATORY | | | ANGUILLAN | | | SERVICES, | | | [...] the MDRD equation recommended by the | [facility] | | National Kidney Disease [...] | + + + + + | [facility] | [address] | [place] [address] | | | NATALEE WORTHINGTON | VILMA [...] (H) | 70 - 99 mg/dL | [facility] - | | | GLUCOSE, [...] PICKETT | [address] | [place], [place] | | | [facility] | [address] | [address] | | | TESTS | | | [...] PIYUSH | [address] | [place], [place] | | | GLORIA GENAO OF [facility] | [address] | [address] | | | TESTS | | | [...] DEPT OF | [address] | [place], [place] | | | CARDIOLOGY | [address] | [address] | | + + + + + [...] PICKETT | [address] | [place], [place] | | | [facility] GE[facility] | [address] | [address] | | | TESTS | | | [...] MAR[facility] | [address] | [place], [place] | | | [facility] | [address] | [address] | | | TESTS | | | [...] PIYUSH | [address] | [place], [place] | | | [facility] | [address] | [address] | | | TESTS | | | [...] | + + + + + | [facility] | [address] | [place] [address] | | | SERVICES, CORE | PARK [...] [facility] | [address] | [place] [address] | | | SERVICES, CORE | PARK [...] | | | LABORATORY | | | ANGUILLAN | | | SERVICES, | | | [...] the MDRD equation recommended by the | [facility] | | National Kidney Disease [...] | + + + + + | [facility] | [address] | [place] [address] | | | SERVICES, CORE | VILMA [...] (H) | 70 - 99 mg/dL | [facility] - | | | GLUCOSE, [...] PICKETT | [address] | [place], [place] | | | [facility] | [address] | [address] | | | TESTS | | | [...] | + + + + + | [facility] | [address] | [place] [address] | | | SERVICES, CORE | VILMA [...] [facility] | [address] | [place] [address] | | | SERVICES, CORE | PARK [...] | | | LABORATORY | | | ANGUILLAN | | | SERVICES, | | | [...] the MDRD equation recommended by the | [facility] | | National Kidney Disease Education Program. [...] [facility] | [address] | [place] [address] | | | NATALEE WORTHINGTON | VILMA [...] DEPT OF | [address] | [place], [place] | | | CARDIOLOGY | [address] | [address] | | + + + + + [...] Note | + + | Service Account, [id number] Res In Interface - 09/24/2017 4:09 PM [...] | + + + + + | [facility] | [address] | [place] [address] | | | SERVICES, CORE | VILMA [...] | | | LABORATORY | | | ANGUILLAN | | | SERVICES, | | | [...] [facility] | [address] | [place] [address] | | | SERVICES, CORE | PARK [...] | + + + + + | [facility] | [address] | [place] [address] | | | SERVICES, CORE | PARK [...] | + + + + + | [facility] | [address] | [place] [address] | | | NATALEE WORTHINGTON | [place]MA [...] | Reference range change effective 12/11/16. | [facility] | | | LABORATORY | | | NATALEE WORTHINGTON | + + + + + + + + | Performing | Address | City/State/Zipcode | Phone Number | | Organization | | | | + + + + + | [facility] | [address] | [place] [address] | | | NATALEE WORTHINGTON | PARK [...] | | | LABORATORY | | | ANGUILLAN | | | SERVICES, | | | [...] | + + + + + | [facility] | [address] | [place] [address] | | | SERVICES, CORE | VILMA [...] [facility] | [address] | [place], [place] | | | GLORIA GENAO [facility] CARE | [address] | [address] | | | TESTS | | | [...] + + | SELE[facility] PICKETT | [address] | [place], [place] | | | [facility] | [address] | [address] | | | TESTS | | | [...] | + + + + + | [facility] | [address] | [place] [address] | | | SERVICES, CORE | VILMA [...] GEET OF | [address] | [place], [place] | | | CARDIOLOGY | [address] | [address] | | + + + + + [...] | + + + + + | [facility] | [address] | [place] [address] | | | SERVICES, CORE | [address] | | | + + + + + MAGNESIUM, PLASMA (09/22/2017 5:48 AM PDT) + +-------+ + + + | Component | Value | Ref Range | Performed | Pathologist | | | | | At | Signature | + +-------+ + + + | MAGNESIUM,P | 1.9 | 1.6 - 2.6 mg/dL | [facility] | | | LISA | | | [...] [facility] | [address] | [place] [address] | | | SERVICES, NATALEE | VILMA [...] | | | LABORATORY | | | ANGUILLAN | | | SERVICES, | | | [...] | + + + + + | [facility] [employer] | [address] | [place] [address] | | | SERVICES, CORE | VILMA [...] [facility] | [address] | [place], [place] | | | GLORIA GENAO OF CARE | [facility] | [address] | | | TESTS | | | [...] SELENA MCNA[facility] | [address] | [place] [address] | | | SERVICES, NATALEE | VILMA [...] | + + + + + | [facility] | [address] | [place] [address] | | | SERVICES, CORE | [address] [...] | | | LABORATORY | | | ANGUILLAN | | | SERVICES, | | | [...] the MDRD equation recommended by the | [facility] | | National Kidney Disease [...] | + + + + + | [facility] | [address] | [place] [address] | | | SERVICES, CORE | VILMA [...] Note | + + | Service Account, [facility] In Interface - 09/20/2017 6:25 PM PDT [...] Note | + + | Service Adal, Kostas Res In Interface - 09/20/2017 6:26 PM [...] Account, Radiant Res In Interface - 09/20/2017 5:17 PM [...] DEPT OF | [address] | [place], [place] | | | CARDIOLOGY | [address] | [address] | | + + + + + [...] | + + + + + | [facility] | [address] | [place] [address] | | | SERVICES, CORE | [address] | | | + + + + + MAGNESIUM, PLASMA (09/20/2017 5:32 AM PDT) + +-------+ + + + | Component | Value | Ref Range | Performed | Pathologist | | | | | At | Signature | + +-------+ + + + | MAGNESIUM,P | 2.2 | 1.6 - 2.6 mg/dL | [facility] | | | LASMA | [...] [facility] | [address] | [place] [address] | | | SERVICES, NATALEE | VILMA [...] | | | LABORATORY | | | ANGUILLAN | | | SERVICES, | | | [...] | + + + + + | [facility] | [address] | [place] [address] | | | SERVICES, NATALEE | VILMA [...] | + + + + + | [facility] | [address] | [place] [address] | | | SERVICES, CORE | [address] | | | + + + + + MAGNESIUM, PLASMA (09/19/2017 4:32 AM PDT) + +-------+ + + + | Component | Value | Ref Range | Performed | Pathologist | | | | | At | Signature | + +-------+ + + + | MAGNESIUM,P | 2.2 | 1.6 - 2.6 mg/dL | [facility] [...] [facility] | [address] | [place] [address] | | | ELIN, NATALEE | VILMA [...] | | | LABORATORY | | | ANGUILLAN | | | SERVICES, | | | [...] | + + + + + | [facility] | [address] | [place] [address] | | | SERVICES, CORE | VILMA [...] [facility] | [address] | [place] [address] | | | SERVICES, NATALEE | [address] | | | + + + + + MAGNESIUM, PLASMA (09/18/2017 5:40 AM PDT) + +-------+ + + + | Component | Value | Ref Range | Performed | Pathologist | | | | | At | Signature | + +-------+ + + + | MAGNESIUM,P | 2.3 | 1.6 - 2.6 mg/dL | [facility] [...] | + + + + + | [facility] | [address] | [place] [address] | | | NATALEE WORTHINGTON | VILMA [...] | | | LABORATORY | | | ANGUILLAN | | | SERVICES, | | | [...] | + + + + + | [facility] | [address] | [place] [address] | | | SERVICES, CORE | VILMA [...] Service Account, Kostas Res In Interface - 09/17/2017 11:53 AM PDT [...] [facility] | [address] | [place] [address] | | | ELIN, NATALEE | [address] [...] [facility] | [address] | [place] [address] | | | SERVICES, CORE | [address] [...] | | | LABORATORY | | | ANGUILLAN | | | SERVICES, | | | [...] the MDRD equation recommended by the | [facility] | | National Kidney Disease [...] | + + + + + | [facility] | [address] | [place] [address] | | | ELIN, NATALEE | [address] | | | + + + + + X-RAY PORTABLE CHEST PICC LINE CHECK (09/16/2017 1:11 PM PDT) + + | Specimen | + + | | + + + + + | Narrative | Performed At | + + + | EXAM: VT CHEST PICC LINE CHECK HISTORY: PICC placement [...] Note | + + | Service Account, [facility] In Interface - 09/16/2017 1:34 PM PDT EXAM: VT CHEST | | PICC LINE CHECK HISTORY: [...] At | + + + | EXAM: VT CHEST PICC LINE CHECK HISTORY: Evaluate PICC [...] Note | + + | Service Account, [employer] In Interface - 09/16/2017 11:41 AM PDT EXAM: VT CHEST | | PICC LINE CHECK HISTORY: [...] [facility] | [address] | [place] [address] | | | SERVICES, CORE | [address] [...] [facility] | [address] | [place] [address] | | | NATALEE WORTHINGTON | VILMA [...] | | | LABORATORY | | | ANGUILLAN | | | SERVICES, | | | [...] | + + + + + | [facility] [employer] | [address] | [place] [address] | | | NATALEE WORTHINGTON | [address] | | | + + + + + X-RAY PORTABLE CHEST 1 VIEW (09/15/2017 3:28 PM PDT) + + | Specimen | + + | | + + + + + | Narrative | Performed At | + + + | EXAM: VT CHEST 1 VIEW HISTORY: COMPARISON: None. | [...] Interface - 09/15/2017 6:45 PM PDT EXAM: VT CHEST 1 | | VIEW HISTORY: COMPARISON: [...] At | + + + | EXAM: VT CHEST PICC LINE CHECK HISTORY: PICC COMPARISON: [...] Interface - 09/15/2017 6:43 PM PDT EXAM: VT CHEST | | PICC LINE CHECK HISTORY: [...] Note Indications:TPN Procedure | | | location: Unit:13A Room: #12 Providers: Attending name: | | [...] | pause verifies correct patient, procedure, equipment, director of academic support | | | and site/side marked [...] | area Basilic vein. Catheter lot number: [id number] with a length of 55 | | [...] | + + + + + | [facility] | [address] | [place] [address] | | | SERVICES, CORE | [address] | | | + + + + + MAGNESIUM, PLASMA (09/15/2017 6:02 AM PDT) + +-------+ + + + | Component | Value | Ref Range | Performed | Pathologist | | | | | At | Signature | + +-------+ + + + | MAGNESIUM,P | 2.1 | 1.6 - 2.6 mg/dL | [facility] | | | SAM[facility] | | | [...] [facility] | [address] | [place] [address] | | | SERVICES, NATALEE | VILMA [...] | | | LABORATORY | | | ANGUILLAN | | | SERVICES, | | | [...] | + + + + + | [facility] [employer] | [address] | [place] [address] | | | SERVICES, CORE | VILMA [...] [facility] | [address] | [place] [address] | | | ELIN, NATALEE | [address] [...] [facility] | [address] | [place] [address] | | | SERVICES, CORE | [address] [...] | | | LABORATORY | | | ANGUILLAN | | | SERVICES, | | | [...] the MDRD equation recommended by the | [facility] | | National Kidney Disease [...] | + + + + + | [facility] | [address] | [place] [address] | | | NATALEE WORTHINGTON | V[address] [...] [facility] | [address] | [place] [address] | | | SERVICES, NATALEE | PARK [...] [facility] | [address] | [place] [address] | | | SERVICES, CORE | [address] [...] | | | LABORATORY | | | ANGUILLAN | | | SERVICES, | | | [...] | + + + + + | [facility] | [address] | [place] [address] | | | NATALEE WORTHINGTON | [address] [...] Service Account, Kostas Res In Interface - 09/12/2017 9:13 AM PDT EXAM: EL PEÑA | | FEEDING TUBE EVALHISTORY: Dobbhoff tube [...] | + + + + + | [facility] | [address] | [place] [address] | | | NATALEE WORTHINGTON | VILMA [...] | + + + + + | [facility] | [address] | [place] [address] | | | SERVICES, CORE | [address] [...] | | | LABORATORY | | | ANGUILLAN | | | SERVICES, | | | [...] [facility] | [address] | [place] [address] | | | SERVICES, CORE | VILMA [...] | | + +---------+ + + | [facility] | | | | [...] | + + + + + | [facility] | [address] | [place] [address] | | | SERVICES, CORE | VILMA [...] [facility] | [address] | [place] [address] | | | SERVICES, CORE | [address] [...] | | | LABORATORY | | | ANGUILLAN | | | SERVICES, | | | [...] the MDRD equation recommended by the | [facility] | | National Kidney Disease [...] | + + + + + | [facility] | [address] | [place] [address] | | | NATALEE WORTHINGTON | VILMA [...] | + + + + + | [facility] | [address] | [place] [address] | | | SERVICES, NATALEE | [address] [...] Note | + + | Service Account, [employer] Res In Interface - 09/10/2017 2:08 PM [...] Note | + + | Service Account, [facility] In Interface - 09/10/2017 2:31 PM PDT [...] [facility] | | | | | [facility] | | | | + +---------+ + + X-RAY PORTABLE CHEST 1 VIEW (09/10/2017 7:16 AM PDT) + + | Specimen | + + | | + + + + + | Narrative | Performed At | + + + | STUDY: VT CHEST 1 VIEW 09/10/17 07:02:01 HISTORY: Possible [...] Interface - 09/10/2017 9:25 AM PDT STUDY: VT CHEST 1 | | VIEW 09/10/17 07:02:01 [...] | + + + + + | [facility] | [address] | [place] [address] | | | SERVICES, CORE | PARK [...] + + | [facility] | [address] | [place] [address] | | | SERVICES, CORE | [address] [...] and IG# effective | [facility] | | 09/06/2107 | LABORATORY | | | NATALEE WORTHINGTON | + + + + + + + + | Performing | Address | City/State/Zipcode | Phone Number | | Organization | | | | + + + + + | [facility] | [address] | [place] [address] | | | NATALEE WORTHINGTON | V[address] [...] | + + + + + | [facility] | [address] | [place] [address] | | | SERVICES, CORE | [address]ARK [...] | | | LABORATORY | | | ANGUILLAN | | | SERVICES, | | | [...] | + + + + + | [facility] | [address] | [place] [address] | | | SERVICES, CORE | [address] | | | + + + + + 12 LEAD ECG (09/10/2017 1:08 AM PDT) + + + + + + | Component | Value | Ref Range | Performed | Pathologist | | | | | At | Signature | + + + + + + | VENTRICULAR | 120 | bpm | [facility] | | | RATE | | [...] | + + + + + | [facility] OF | [address] | [place], [place] | | | CARDIOLOGY | [address] | [address] | | + + + + + X-RAY ABD LTD FEEDING TUBE EVAL PORTABLE (09/09/2017 10:15 PM PDT) + + | Specimen | + + | | + + + + + | Narrative | Performed At | + + + | INDICATION: feeding tube placement TECHNIQUE: Supine portable | [facility] | | view of the upper [...] Account, Radiant Res In Interface - 09/10/2017 11:11 [...] [facility] | [address] | [place], [place] | | | [facility] | [facility] | [address] | | | TESTS | | | [...] [facility] | [address] | [place] [address] | | | SERVICES, CORE | [address]ARK [...] MCHC, PLT, IG% and IG# effective | [facility] | | 09/06/2107 | LABORATORY | | | SERVICES, CORE | + + + + + + + + | Performing | Address | City/State/Zipcode | Phone Number | | Organization | | | | + + + + + | [facility] | [address] | [place] [address] | | | SERVICES, CORE | [address] [...] | | | LABORATORY | | | ANGUILLAN | | | SERVICES, | | | [...] the MDRD equation recommended by the | [facility] | | National Kidney Disease [...] [facility] | [address] | [place] [address] | | | SERVICES, CORE | PARK [...] | + + + + + | [facility] | [address] | [place] [address] | | | SERVICES, CORE | VILMA [...] | | | LABORATORY | | | ANGUILLAN | | | SERVICES, | | | [...] [facility] | [address] | [place] [address] | | | SERVICES, CORE | PARK [...] | + + + + + | [facility] | [address] | [place] [address] | | | SERVICES, CORE | VILMA [...] | + + + + + | [facility] | [address] | [place] [address] | | | SERVICES, [facility] | [address] | | | + [...] DEPT OF | [address] | [place], [place] | | | CARDIOLOGY | [address] | [address] | | + + + + + X-RAY PORTABLE CHEST 1 VIEW (09/07/2017 6:12 AM PDT) + + | Specimen | + + | | + + + + + | Narrative | Performed At | + + + | EXAM: VT CHEST 1 VIEW HISTORY: Post extubation COMPARISON: [...] Interface - 09/07/2017 10:46 AM PDT EXAM: VT CHEST 1 | | VIEWHISTORY: Post extubationCOMPARISON: [...] [facility] | [address] | [place] [address] | | | NATALEE WORTHINGTON | [address] [...] | | | LABORATORY | | | ANGUILLAN | | | SERVICES, | | | [...] | + + + + + | [facility] | [address] | [place] [address] | | | NATALEE WORTHINGTON | [address] [...] + + | [facility] | [address] | [place] [address] | | | SERVICES, NATALEE | [address] [...] Note | + + | Service Account, [employer] Res In Interface - 09/07/2017 10:46 AM [...] + | [facility] DEPT OF | [address] | [place], [place] | | | CARDIOLOGY | [address] | [address] | | + + + + + [...] | | | attempt. Midline lot number [id number]; there was positive blood | | | [...] | | | LABORATORY | | | ANGUILLAN | | | SERVICES, | | | [...] [facility] | [address] | [place] [address] | | | SERVICES, CORE | [address] [...] | + + + + + | [facility] | [address] | [place] [address] | | | SERVICES, CORE | [address] | | | + + + + + X-RAY PORTABLE CHEST 1 VIEW (09/05/2017 5:33 AM PDT) + + | Specimen | + + | | + + + + + | Narrative | Performed At | + + + | EXAM: VT CHEST 1 VIEW HISTORY: Evaluation after chest [...] Interface - 09/05/2017 10:16 AM PDT EXAM: VT CHEST 1 | | VIEW HISTORY: Evaluation [...] [facility] | [address] | [place] [address] | | | SERVICES, CORE | [address] [...] | + + + + + | [facility] [employer] | [address] | [place] [address] | | | SERVICES, CORE | [address] [...] | | | LABORATORY | | | ANGUILLAN | | | SERVICES, | | | [...] [facility] | [address] | [place] [address] | | | SERVICES, CORE | [address] [...] | | | LABORATORY | | | ANGUILLAN | | | SERVICES, | | | [...] the MDRD equation recommended by the | [facility] | | National Kidney Disease [...] | + + + + + | [facility] | [address] | [place] [address] | | | [facility] | [address] | | | + [...] tomorrow morning. CB Henson Pager / ID: [phone] | | + + + CULTURE, SPUTUM [...] seen | [facility] - | | | [place] | + + + + + + + + | Performing | Address | City/State/Zipcode | Phone Number | | Organization | | | | + + + + + | [facility] | [address] | [place] [address] | | | [place] | | | [...] | + + + + + | [facility] | [address] | [place] [address] | | | SERVICES, CORE | [address] | | | + + + + + UA, DIPSTICK ONLY (09/04/2017 1:17 PM PDT) + + [...] | [facility] | | | GRAVITY | Lampe performed by | | LABORATORY | | [...] [facility] | [address] | [place] [address] | | | SERVICES, CORE | [address] [...] | + + + + + | [facility] | [address] | [place] [address] | | | SERVICES, CORE | VIL[address] [...] | + + + + + | [facility] | [address] | [place] [address] | | | SERVICES, CORE | PARK [...] + | [facility] DEPT OF | [address] | [place], [place] | | | CARDIOLOGY | [address] | [address] | | + + + + + X-RAY PORTABLE CHEST 1 VIEW (09/04/2017 7:04 AM PDT) + + | Specimen | + + | | + + + + + | Narrative | Performed At | + + + | EXAM: VT CHEST 1 VIEW HISTORY: Hypoxia. Intubated. | [...] Interface - 09/04/2017 9:49 AM PDT EXAM: VT CHEST 1 | | VIEW HISTORY: Hypoxia. [...] | + + + + + | [facility] | [address] | [place] [address] | | | SERVICES, CORE | VILMA [...] [facility] | [address] | [place] [address] | | | SERVICES, CORE | [address] [...] | | | LABORATORY | | | ANGUILLAN | | | SERVICES, | | | [...] the MDRD equation recommended by the | [facility] | | National Kidney Disease [...] | + + + + + | [facility] | [address] | [place] [address] | | | SERVICES, CORE | [address] | | | + + + + + MAGNESIUM, PLASMA (09/04/2017 12:29 AM PDT) + +-------+ + + + | Component | Value | Ref Range | Performed | Pathologist | | | | | At | Signature | + +-------+ + + + | MAGNESIUM,P | 1.9 | 1.6 - 2.6 mg/dL | [facility] | | | LISA | | | [...] [facility] | [address] | [place] [address] | | | ELIN, NATALEE | VILMA [...] [facility] | [address] | [place], [place] | | | [facility] | [address] | [address] | | | TESTS | | | [...] + + + | [facility] | [address] | [place], [place] | | | [facility] | [address] | [address] | | | TESTS | | | [...] [facility] | [address] | [place], [place] | | | GLORIA GENAO OF [facility] | [address] | [address] | | | TESTS | | | [...] [facility] | [address] | [place], [place] | | | [facility] | [address] | [address] | | | TESTS | | | [...] Note | + + | Service Account, [employer] Res In Interface - 09/03/2017 10:27 AM [...] | | + +---------+ + + | [facility] RAD[facility] | | | | | [facility] | | | | + +---------+ [...] detected | [facility] - | | | [place] | + + + + + + + + | Performing | Address | City/State/Zipcode | Phone Number | | Organization | | | | + + + + + | [facility] | [address] | [place] [address] | | | [place] | | | [...] [facility] | [address] | [place] [address] | | | SERVICES, CORE | [address] [...] Account, Radiant Res In Interface - 09/03/2017 9:54 AM PDT [...] + | [facility] | [address] | [place] [address] | | | [place] | | | | + + + [...] | + + + + + | [facility] | [address] | [place] [address] | | | SERVICES, CORE | [address] [...] | + + + + + | [facility] | [address] | [place] [address] | | | SERVICES, CORE | [address] [...] | | | LABORATORY | | | ANGUILLAN | | | SERVICES, | | | [...] [facility] | [address] | [place] [address] | | | SERVICES, CORE | [address] [...] | + + + + + | [facility] | [address] | [place] [address] | | | SERVICES, CORE | [address] | | | + + + + + OPERATION RECORD (09/02/2017 6:53 PM PDT) + + | Procedure Note | + + | Fidelina Shields MD - 09/02/2017 6:53 PM PDT Date of Service: 09/02/2017 | | Attending Surgeon: Fidelina Shields MD Slasher(s): | | Ajay Garcia MD, resident. Preoperative [...] 09/02/2017 18:15:29DT: 09/02/2017 18:53:52Job #: | | [id number] to federal Medicare and Medicaid regulations I was present for | | the entire procedure.Fidelina Shields MDAssistanbrice ProfessorDepartment of SurgeryOffice: | | [phone]: [id number] has been electronically signed by Fidelina Shields MD, | | 09/03/2017 at 9:11 AM. | | | | | |Fidelina Shields MD | |Blocking Machine Operator | |Department of Surgery | |Office: [phone] | |Pager: [phone] | | | |This has been electronically [...] + | [facility] | [address] | [place] [address] | | | SERVICES, CORE | [address] [...] | + + + + + | [facility] | [address] | [place] [address] | | | SERVICES, CORE | VILMA [...] + | [facility] | [address] | [place] [address] | | | [place] | | | [...] | + + + + + | [facility] | [address] | [place] [address] | | | NATALEE WORTHINGTON | [address] [...] | | | LABORATORY | | | ANGUILLAN | | | SERVICES, | | | [...] | + + + + + | [facility] | [address] | [place] [address] | | | SERVICES, CORE | [address] [...] Note | + + | Service Account, [employer] Res In Interface - 09/02/2017 4:25 PM [...] Initial surgical | | | contact: INGRID Garcia, Surgery [id number] Pursuant | | | to federal Medicare and Medicaid regulations I was present for the | | | entire procedure. Fidelina Shields MD Blocking Machine Operator | | | Department of Surgery Office: [phone] Pager: [phone] This has | | | been electronically [...] [facility] | [address] | [place] [address] | | | SERVICES, NATALEE | VILMA [...] | + + + + + | [facility] | [address] | [place] [address] | | | SERVICES, NATALEE | [address] | | | + + + + + OPERATION RECORD (09/02/2017 6:51 AM PDT) + ---+ | Procedure Note | + ---+ | Fidelina Shields MD - 09/02/2017 6:51 AM PDT Date of Service: 09/01/2017 | | Attending Surgeon: Fidelina Shields MD Slasher(s): Haim Peralta MD. | | Ajay Garcia [...] 09/02/2017 06:17:53DT: 09/02/2017 | | 06:51:37Job #: [id number] to federal Medicare and Medicaid regulations I | | was present for the entire procedure.Fidelina Shields MDAssistant ProfessorDepartment of | | SurgeryOffice: [phone]: [id number] has been electronically signed by Fidelina Snyder | | MD Cornelius, 09/02/2017 at 10:40 AM. | | | | | |Pursuant to federal Medicare and Medicaid regulations I was present for the entire procedur e. | | | | | | | |Fidelina Shields MD | |Blocking Machine Operator | |Department of Surgery | |Office: [phone] | |Pager: [phone] | | | |This has been electronically [...] [facility] | [address] | [place] [address] | | | SERVICES, CORE | [address] [...] | + + + + + | [facility] | [address] | [place] [address] | | | SERVICES, CORE | [address]IL[address] [...] + + + + | PRODUCT | [id number] | | [facility] | | | UNIT [...] + + + + | EXPIRATION | [id number] | | [facility] | | | DATE [...] + + + + | BLOOD | [id number] | | [facility] | | | PRODUCT [...] | + + + + + | [facility] | [address] | [place] [address] | | | SERVICES, | [address] [...] solid organs and | | | vasculature. Rese catheter is in place with radiodense contrast [...] [facility] | [address] | [place] [address] | | | SERVICES, CORE | [address] [...] | | | LABORATORY | | | ANGUILLAN | | | SERVICES, | | | [...] the MDRD equation recommended by the | [facility] | | National Kidney Disease [...] | + + + + + | [facility] | [address] | [place] [address] | | | SERVICES, CORE | [address] | | | + + + + + MAGNESIUM, PLASMA (09/01/2017 11:16 PM PDT) + +-------+ + + + | Component | Value | Ref Range | Performed | Pathologist | | | | | At | Signature | + +-------+ + + + | MAGNESIUM,P | 1.6 | 1.6 - 2.6 mg/dL | [facility] | | | [facility] | | | [...] [facility] | [address] | [place] [address] | | | SERVICES, NATALEE | [address] [...] | | | | INFORMATION: | | [place] | | | | QuantiFERON-TB Gold | [...] (http://www.cdc.gov/mmwr | | | | | | /preview/[email or web address] | | | | | | [email or web address].htm), [...] [facility] - | | | | by [employer], | | AIRPORT - | | | | | | [place] | | | | [address] | | | | | | Rogelio Pickard [facility] [place] | | | | | | [address] | | | | | | | | | | | | www.[email or web address] | | | | | | MD [...] + | [facility] - AIRPORT - | [address] | [place] [address] | | | [place] | | | [...] [facility] | [address] | [place] [address] | | | SERVICES, CORE | PARK [...] | + + + + + | [facility] | [address] | [place] [address] | | | SERVICES, CORE | PARK [...] Note | + + | Service Account, [employer] Res In Interface - 09/02/2017 8:55 AM [...] At | + + + | EXAM: VT CHEST 1 VIEW HISTORY: Hypoxemia COMPARISON: 09/01/17 [...] Note | + + | Service Account, [employer] Res In Interface - 09/02/2017 10:34 AM PDT EXAM: VT CHEST 1 | | VIEW HISTORY: HypoxemiaCOMPARISON: [...] [facility] | [address] | [place] [address] | | | ELIN, NATALEE | VILMA [...] [facility] | [address] | [place] [address] | | | SERVICES, CORE | VILMA [...] + + + + | PRODUCT | [id number] | | [facility] | | | UNIT [...] + + + + | EXPIRATION | [id number] | | [facility] | | | DATE [...] + + + + | BLOOD | [id number] | | [facility] | | | PRODUCT [...] [facility] | [address] | [place] [address] | | | SERVICES, | [address] [...] | + + + + + | [facility] | [address] | [place] [address] | | | SERVICES, CORE | VILMA [...] | + + + + + | [facility] | [address] | [place] [address] | | | SERVICES, CORE | PARK [...] [facility] | [address] | [place] [address] | | | SERVICES, CORE | PARK [...] | | | LABORATORY | | | ANGUILLAN | | | SERVICES, | | | [...] [facility] | [address] | [place] [address] | | | SERVICES, CORE | PARK [...] | + + + + + | [facility] | [address] | [place] [address] | | | ELIN, NATALEE | VILMA [...] | + + + + + | [facility] | [address] | [place] [address] | | | SERVICES, CORE | [address] | | | + + + + + IR EMBOLIZATION OTHER (09/01/2017 2:06 PM PDT) + + | Specimen | + + | | + + + + + | Narrative | Performed At | + + + | Procedure: Selective visceral arteriography. IR Attending: | NVDANIELLE | | Marquez Hubbard MD, PhD IR [...] micropuncture access set was exchanged for a [employer] wire. Under | | | fluoroscopic guidance, a 5 Fr flush catheter was used to evaluate the | | | distal abdominal aorta and pelvic vasculature. A wire and catheter | | | were then used to select the left common and internal iliac arteries | | | from the right TECHNICAL DOCUMENT WRITER approach. DSA was performed from the left [...] micropuncture access set was exchanged for a [employer] wire. Under fluoroscopic guidance, | | a 5 Fr flush catheter was used to evaluate the distal abdominal aorta and pelvic | | vasculature. A wire and catheter were then used to select the left common and internal | | iliac arteries from the right TECHNICAL DOCUMENT WRITER approach. DSA was performed from the left [...] micropuncture access set was exchanged for a [employer] wire. Under fluoroscopic guidance, a 5 Fr flush catheter was used | |to evaluate the distal abdominal aorta and pelvic vasculature. A wire and catheter were th en used to select the left common and internal iliac arteries from the right TECHNICAL DOCUMENT WRITER approach. DSA was performed from the left [...] [facility] | [address] | [place], [place] | | | [employer] [employer] | [address] | [address] | | | TESTS | | | | + + + + + EXPLORATORY LAPAROTOMY (09/01/2017 12:31 PM PDT) + + + | Narrative | Performed At | + + + | Fidelina Shields MD 09/01/2017 12:42 PM BRIEF OPERATIVE NOTE: | | | Date: 09/01/2017 Author: Fidelina Shields MD | | | Attending Physician: Fidelina Shields MD Slasher(s): Haim Peralta | | | , Vicente Garcia MD, Gl[facility] MS3 Prior to the | | [...] case. | | | Fidelina Shields MD Blocking Machine Operator Division of Trauma, | | | Critical Care and Acute Care Surgery Office: [phone] Pager: | | | [phone] | | + + + ABG-FULL ABL, [...] [facility] | [address] | [place], [place] | | | [place] | [address] | [address] | | | TESTS | | | [...] | + + + + + | [facility] | [address] | [place] [address] | | | SERVICES, CORE | VILMA [...] (H) | 72 - 104 mmHg | [facility] - | | | ARTERIAL, | [...] [facility] | [address] | [place], [place] | | | [employer] | [address] | [address] | | | TESTS | | | [...] + + + + | PRODUCT | [id number] | | [facility] | | | UNIT [...] + + + + | EXPIRATION | [id number] | | [facility] | | | DATE [...] + + + + | BLOOD | [id number] | | [facility] | | | PRODUCT [...] [facility] | [address] | [place] [address] | | | SERVICES, | [address] [...] + + + + | PRODUCT | [id number] | | [facility] | | | UNIT [...] + + + + | EXPIRATION | [id number] | | [facility] | | | DATE [...] + + + + | BLOOD | [id number] | | [facility] | | | PRODUCT [...] [facility] | [address] | [place] [address] | | | SERVICES, | [address] [...] + + + + | PRODUCT | [id number] | | [facility] | | | UNIT [...] + + + + | EXPIRATION | [id number] | | [facility] | | | DATE [...] + + + + | BLOOD | [id number] | | [facility] | | | PRODUCT [...] [facility] | [address] | [place] [address] | | | SERVICES, | [address] [...] + + + + | PRODUCT | [id number] | | [facility] | | | UNIT [...] + + + + | EXPIRATION | [id number] | | [facility] | | | DATE [...] + + + + | BLOOD | [id number] | | [facility] | | | PRODUCT [...] [facility] | [address] | [place] [address] | | | SERVICES, | [address] [...] + + + + | PRODUCT | [id number] | | [facility] | | | UNIT [...] + + + + | EXPIRATION | [id number] | | [facility] | | | DATE [...] + + + + | BLOOD | [id number] | | [facility] | | | PRODUCT [...] [facility] | [address] | [place] [address] | | | SERVICES, | [address] [...] + + + + | PRODUCT | [id number] | | [facility] | | | UNIT [...] + + + + | EXPIRATION | [id number] | | [facility] | | | DATE [...] + + + + | BLOOD | [id number] | | [facility] | | | PRODUCT [...] [facility] | [address] | [place] [address] | | | SERVICES, | [address] [...] + + + + | PRODUCT | [id number] | | [facility] | | | UNIT [...] + + + + | EXPIRATION | [id number] | | [facility] | | | DATE [...] + + + + | BLOOD | [id number] | | [facility] | | | PRODUCT [...] | + + + + + | [facility] | [address] | [place] [address] | | | SERVICES, | [address] [...] + + + + | PRODUCT | [id number] | | [facility] | | | UNIT [...] + + + + | EXPIRATION | [id number] | | [facility] | | | DATE [...] + + + + | BLOOD | [id number] | | [facility] | | | PRODUCT [...] | + + + + + | [facility] | [address] | [place] [address] | | | SERVICES, | [address] [...] + + + + | PRODUCT | [id number] | | [facility] | | | UNIT [...] + + + + | EXPIRATION | [id number] | | [facility] | | | DATE [...] + + + + | BLOOD | [id number] | | [facility] | | | PRODUCT [...] | + + + + + | [facility] | [address] | [place] [address] | | | SERVICES, | [address] [...] + + + + | PRODUCT | [id number] | | [facility] | | | UNIT [...] + + + + | EXPIRATION | [id number] | | [facility] | | | DATE [...] + + + + | BLOOD | [id number] | | [facility] | | | PRODUCT [...] | + + + + + | [facility] | [address] | [place] [address] | | | SERVICES, | [address] [...] + + + + | PRODUCT | [id number] | | [facility] | | | UNIT [...] + + + + | EXPIRATION | [id number] | | [facility] | | | DATE [...] + + + + | BLOOD | [id number] | | [facility] | | | PRODUCT [...] [facility] | [address] | [place] [address] | | | SERVICES, | [address] [...] + + + + | PRODUCT | [id number] | | [facility] | | | UNIT [...] + + + + | EXPIRATION | [id number] | | [facility] | | | DATE [...] + + + + | BLOOD | [id number] | | [facility] | | | PRODUCT [...] [facility] | [address] | [place] [address] | | | SERVICES, | [address] [...] + + + + | PRODUCT | [id number] | | [facility] | | | UNIT [...] + + + + | EXPIRATION | [id number] | | [facility] | | | DATE [...] + + + + | BLOOD | [id number] | | [facility] | | | PRODUCT [...] [facility] | [address] | [place] [address] | | | SERVICES, | [address] [...] + + + + | PRODUCT | [id number] | | [facility] | | | UNIT [...] + + + + | EXPIRATION | [id number] | | [facility] | | | DATE [...] + + + + | BLOOD | [id number] | | [facility] | | | PRODUCT [...] [facility] | [address] | [place] [address] | | | SERVICES, | [address] [...] + + + + | PRODUCT | [id number] | | [facility] | | | UNIT [...] + + + + | EXPIRATION | [id number] | | [facility] | | | DATE [...] + + + + | BLOOD | [id number] | | [facility] | | | PRODUCT [...] | + + + + + | [facility] | [address] | [place] [address] | | | SERVICES, | [address] [...] + + + + | PRODUCT | [id number] | | [facility] | | | UNIT [...] + + + + | EXPIRATION | [id number] | | [facility] | | | DATE [...] + + + + | BLOOD | [id number] | | [facility] | | | PRODUCT [...] [facility] | [address] | [place] [address] | | | SERVICES, | [address] [...] + + + + | PRODUCT | [id number] | | [facility] | | | UNIT [...] + + + + | EXPIRATION | [id number] | | [facility] | | | DATE [...] + + + + | BLOOD | [id number] | | [facility] | | | PRODUCT [...] LABORATORY | [address] | [place] [address] | | | SERVICES, | [address] [...] + + + + | PRODUCT | [id number] | | [facility] | | | UNIT [...] + + + + | EXPIRATION | [id number] | | [facility] | | | DATE [...] + + + + | BLOOD | [id number] | | [facility] | | | PRODUCT [...] | + + + + + | [facility] | [address] | [place] [address] | | | SERVICES, | [address] [...] + + + + | PRODUCT | [id number] | | [facility] | | | UNIT [...] + + + + | EXPIRATION | [id number] | | [facility] | | | DATE [...] + + + + | BLOOD | [id number] | | [facility] | | | PRODUCT [...] | + + + + + | [facility] | [address] | [place] [address] | | | SERVICES, | [address] [...] + + + + | PRODUCT | [id number] | | [facility] | | | UNIT [...] + + + + | EXPIRATION | [id number] | | [facility] | | | DATE [...] + + + + | BLOOD | [id number] | | [facility] | | | PRODUCT [...] | + + + + + | [facility] [employer] [facility] | [address] | [place] [address] | | | SERVICES, | [address] [...] + + + + | PRODUCT | [id number] | | [facility] | | | UNIT [...] + + + + | EXPIRATION | [id number] | | [facility] | | | DATE [...] + + + + | BLOOD | [id number] | | [facility] | | | PRODUCT [...] | + + + + + | [facility] | [address] | [place] [address] | | | SERVICES, | [address] | | | | TRANSFUSION MEDICINE [...] + + + + | PRODUCT | [id number] | | [facility] | | | UNIT [...] + + + + | EXPIRATION | [id number] | | [facility] | | | DATE [...] + + + + | BLOOD | [id number] | | [facility] | | | PRODUCT [...] | + + + + + | [facility] | [address] | [place] [address] | | | SERVICES, | [address] [...] + + + + | PRODUCT | [id number] | | [facility] | | | UNIT [...] + + + + | EXPIRATION | [id number] | | [facility] | | | DATE [...] + + + + | BLOOD | [id number] | | [facility] | | | PRODUCT [...] [facility] | [address] | [place] [address] | | | SERVICES, | [address] [...] + + + + | PRODUCT | [id number] | | [facility] | | | UNIT [...] + + + + | EXPIRATION | [id number] | | [facility] | | | DATE [...] + + + + | BLOOD | [id number] | | [facility] | | | PRODUCT [...] [facility] | [address] | [place] [address] | | | SERVICES, | [address] [...] + + + + | PRODUCT | [id number] | | [facility] | | | UNIT [...] + + + + | EXPIRATION | [id number] | | [facility] | | | DATE [...] + + + + | BLOOD | [id number] | | [facility] | | | PRODUCT [...] [facility] | [address] | [place] [address] | | | SERVICES, | [address] [...] + + + + | PRODUCT | [id number] | | [facility] | | | UNIT [...] + + + + | EXPIRATION | [id number] | | [facility] | | | DATE [...] + + + + | BLOOD | [id number] | | [facility] | | | PRODUCT [...] [facility] | [address] | [place] [address] | | | SERVICES, | [address] [...] [facility] | [address] | [place] [address] | | | NATALEE WOR[place] | [address] [...] | | | LABORATORY | | | ANGUILLAN | | | SERVICES, | | | [...] | + + + + + | [facility] | [address] | [place] [address] | | | SERVICES, CORE | [address] [...] | + + + + + | [facility] | [address] | [place] [address] | | | SERVICES, CORE | PARK [...] [facility] | [address] | [place], [place] | | | [facility] | [address] | [address] | | | TESTS | | | | + + + + + X-RAY PORTABLE CHEST 1 VIEW (09/01/2017 9:18 AM PDT) + + | Specimen | + + | | + + + + + | Narrative | Performed At | + + + | EXAM: VT CHEST 1 VIEW HISTORY: Intubated COMPARISON: 08/31/17 [...] Note | + + | Service Account, [employer] In Interface - 09/02/2017 1:23 PM PDT EXAM: VT CHEST 1 | | VIEW HISTORY: IntubatedCOMPARISON: [...] Note | + + | Service Account, [facility] In Interface - 09/01/2017 1:40 PM PDT [...] + + + + | PRODUCT | [id number] | | [facility] | | | UNIT [...] + + + + | EXPIRATION | [id number] | | [facility] | | | DATE [...] + + + + | BLOOD | [id number] | | [facility] | | | PRODUCT [...] + | [facility] | [address] | [place] [address] | | | SERVICES, | [address] [...] + + + + | PRODUCT | [id number] | | [facility] | | | UNIT [...] + + + + | EXPIRATION | [id number] | | [facility] | | | DATE [...] + + + + | BLOOD | [id number] | | [facility] | | | PRODUCT [...] [facility] | [address] | [place] [address] | | | SERVICES, | [address] [...] + + + + | PRODUCT | [id number] | | [facility] | | | UNIT [...] + + + + | EXPIRATION | [id number] | | [facility] | | | DATE [...] + + + + | BLOOD | [id number] | | [facility] | | | PRODUCT [...] [facility] | [address] | [place] [address] | | | SERVICES, | [address] [...] + + + + | PRODUCT | [id number] | | [facility] | | | UNIT [...] + + + + | EXPIRATION | [id number] | | [facility] | | | DATE [...] + + + + | BLOOD | [id number] | | [facility] | | | PRODUCT [...] [facility] | [address] | [place] [address] | | | SERVICES, | [address] [...] + + + + | PRODUCT | [id number] | | [facility] | | | UNIT [...] + + + + | EXPIRATION | [id number] | | [facility] | | | DATE [...] + + + + | BLOOD | [id number] | | [facility] | | | PRODUCT [...] [facility] | [address] | [place] [address] | | | SERVICES, | [address] [...] + + + + | PRODUCT | [id number] | | [facility] | | | UNIT [...] + + + + | EXPIRATION | [id number] | | [facility] | | | DATE [...] + + + + | BLOOD | [id number] | | [facility] | | | PRODUCT [...] [facility] | [address] | [place] [address] | | | SERVICES, | [address] [...] + + + + | PRODUCT | [id number] | | [facility] | | | UNIT [...] + + + + | EXPIRATION | [id number] | | [facility] | | | DATE [...] + + + + | BLOOD | [id number] | | [facility] | | | PRODUCT [...] [facility] | [address] | [place] [address] | | | SERVICES, | [address] [...] + + + + | PRODUCT | [id number] | | [facility] | | | UNIT [...] + + + + | EXPIRATION | [id number] | | [facility] | | | DATE [...] + + + + | BLOOD | [id number] | | [facility] | | | PRODUCT [...] | + + + + + | [facility] | [address] | [place] [address] | | | SERVICES, | [address] [...] + + + + | PRODUCT | [id number] | | [facility] | | | UNIT [...] + + + + | EXPIRATION | [id number] | | [facility] | | | DATE [...] + + + + | BLOOD | [id number] | | [facility] | | | PRODUCT [...] | + + + + + | [facility] | [address] | [place] [address] | | | SERVICES, | [address] [...] + + | [facility] | [address] | [place] [address] | | | NATALEE WORTHINGTON | [address] [...] [facility] | [address] | [place] [address] | | | SERVICES, CORE | [address] [...] Discussed with | | | trauma ICU staff internist office based only by Dr. Yang at 4:38 AM. I [...] interspinous ligament is injured.Discussed with trauma ICU staff internist office based only | | by Dr. Yang at 4:38 AM.I have personally reviewed the images and, if necessary, | | edited the report. I agree with the report as now presented. | |3. Extensive soft tissue edema extending into the cervical and upper thoracic interspinous space, suggestive of interspinous ligament is injured. | | | |Discussed with trauma ICU staff internist office based only by Dr. Yang at 4:38 AM. | [...] | | | LABORATORY | | | ANGUILLAN | | | SERVICES, | | | [...] | + + + + + | [facility] | [address] | [place] [address] | | | SERVICES, CORE | PARK [...] [facility] | [address] | [place] [address] | | | SERVICES, CORE | PARK [...] [facility] | [address] | [place] [address] | | | SERVICES, CORE | PARK [...] | + + + + + | [facility] | [address] | [place] [address] | | | [place]IN, [facility] | [address] | | | + [...] pleural spaced was performed. A 32 size Vietnamese chest tube was | | | placed [...] | ventricles. Discussed with the trauma ICU staff internist office based only at 12:12 AM by | | | Dr. Yang. I have personally reviewed the images and, if | | | necessary, edited the report. I agree with the report as now | | | presented. | | + + + + + | Procedure Note | + + | Service Adal, Radiant Res In Interface - 09/01/2017 10:14 [...] ventricles.Discussed with | | the trauma ICU staff internist office based only at 12:[address] Yang.I have [...] | | |Discussed with the trauma ICU staff internist office based only at 12:[address] Yang. | [...] [facility] | [address] | [place], [place] | | | [facility] | [address] | [address] | | | TESTS | | | [...] [facility] | [address] | [place] [address] | | | SERVICES, CORE | PARK [...] + + + | [facility] | [address] | [place] [address] | | | SERVICES, NATALEE | PARK [...] | | + +---------+ + + | [facility] | | | | [...] | + + + + + | [facility] | [address] | [place] [address] | | | SERVICES, [facility] | [address] | | | + + + + + X-RAY PORTABLE CHEST 1 VIEW (08/31/2017 7:07 PM PDT) + + | Specimen | + + | | + + + + + | Narrative | Performed At | + + + | STUDY: VT CHEST 1 VIEW HISTORY: Trauma COMPARISON: CT CAP | [facility] | | 08/31/2017 FINDINGS: Endotracheal [...] Interface - 09/01/2017 1:44 PM PDT STUDY: VT CHEST 1 | | VIEWHISTORY: TraumaCOMPARISON: CT [...] | | + +---------+ + + | [facility] | | | | [...] | + + + + + | [facility] | [address] | [place] [address] | | | SERVICES, CORE | [address] [...] | | + +---------+ + + | [facility] | | | | | VOICE [...] Note | + + | Service Account, [employer] Res In Interface - 09/01/2017 10:12 AM [...] rib, nondisplaced-Left | | 1st rib fracture, eculcfszrklo-Ofb-entxfrtjs left lateral 8th rib fracture-T12 fracture | [...] Note | + + | Service Account, [facility] In Interface - 08/31/2017 8:10 PM PDT [...] | + + + + + | [facility] [employer] [facility] | [address] | [place] [address] | | | ELIN | [address] | | | | [...] LABORATORY | [address] | [place] [address] | | | SERVICES, | [address] [...] | + + + + + | [facility] | [address] | [place] [address] | | | SERVICES, | [address] [...] | | | CITRATED | | | [place], POINT | | [...] - [facility] | [address] | [place], [place] | | | [facility] GE[facility] | [address] | [address] | | | TESTS | | | [...] - | | | | | | MARK[facility] | | | | | | GLORIA GE[facility] | | | | | | OF CARE | | | | | | TESTS | | + + + + + + | CLOT INDEX | 0.1 | -3 - 3 | [facility] - | | | | | | [facility] | | | | | | [place] [...] + + + | [facility] | [address] | [place], [place] | | | [facility] | [facility] | [address] | | | TESTS | | | [...] | | | | | mmol/L | MARKHRISAM | | [...] [facility] | [address] | [place], [place] | | | [place] [facility] | [address] | [address] | | | TESTS | | | [...] | | | PO2 | | | MARQULIN | | | | | | GLORIA [...] | | POC | | mmol/L | MARQULIN | | | | | | GLORIA [...] | | SAMPLE TYPE | | | MARKHRISAM | | | [...] [facility] | [address] | [place], [place] | | | [facility] [facility] | [facility] | [address] | | | TESTS | | | [...] + + + + | PRODUCT | [id number] | | [facility] | | | UNIT [...] + + + + | EXPIRATION | [id number] | | [facility] | | | DATE [...] + + + + | BLOOD | [id number] | | [facility] | | | PRODUCT [...] [facility] | [address] | [place] [address] | | | SERVICES, | [address] [...] + + + + | PRODUCT | [id number] | | [facility] | | | UNIT [...] + + + + | EXPIRATION | [id number] | | [facility] | | | DATE [...] + + + + | BLOOD | [id number] | | [facility] | | | PRODUCT [...] LABORATORY | [address] | [place] [address] | | | SERVICES, | [address] [...] + + + + | PRODUCT | [id number] | | [facility] | | | UNIT [...] + + + + | EXPIRATION | [id number] | | [facility] | | | DATE [...] + + + + | BLOOD | [id number] | | [facility] | | | PRODUCT [...] [facility] | [address] | [place] [address] | | | SERVICES, | [address] [...] + + + + | PRODUCT | [id number] | | [facility] | | | UNIT [...] + + + + | EXPIRATION | [id number] | | [facility] | | | DATE [...] + + + + | BLOOD | [id number] | | [facility] | | | PRODUCT [...] | + + + + + | [facility] [employer] | [address] | [place] [address] | | | SERVICES, | [address] [...] + + + + | PRODUCT | [id number] | | [facility] | | | UNIT [...] + + + + | EXPIRATION | [id number] | | [facility] | | | DATE [...] + + + + | BLOOD | [id number] | | [facility] | | | PRODUCT [...] | + + + + + | [facility] | [address] | [place] [address] | | | SERVICES, | [address] [...] + + + + | PRODUCT | [id number] | | [facility] | | | UNIT [...] + + + + | EXPIRATION | [id number] | | [facility] | | | DATE [...] + + + + | BLOOD | [id number] | | [facility] | | | PRODUCT [...] | + + + + + | [facility] | [address] | [place] [address] | | | SERVICES, | [address] [...] + + + + | PRODUCT | [id number] | | [facility] | | | UNIT [...] + + + + | EXPIRATION | [id number] | | [facility] | | | DATE [...] + + + + | BLOOD | [id number] | | [facility] | | | PRODUCT [...] | + + + + + | [facility] | [address] | [place] [address] | | | SERVICES, | [address] [...] + + + + | PRODUCT | [id number] | | [facility] | | | UNIT [...] + + + + | EXPIRATION | [id number] | | [facility] | | | DATE [...] + + + + | BLOOD | [id number] | | [facility] | | | PRODUCT [...] | + + + + + | [facility] [employer] | [address] | [place] [address] | | | SERVICES, | [address] [...] | + + + + + | [facility] | [address] | [place] [address] | | | SERVICES, CORE | [address] [...] | | | LABORATORY | | | ANGUILLAN | | | SERVICES, | | | [...] [facility] | [address] | [place] [address] | | | SERVICES, CORE | [address] [...] valves (2.5 - 3.5) INR APTT | [facility], CORE | | Therapeutic Range: (75 - 120) sec | | | Heparin levels of 0.35 - 0.7 U/mL | | + + + + + + + + | Performing | Address | City/State/Zipcode | Phone Number | | Organization | | | | + + + + + | [facility] | [address] | [place] [address] | | | SERVICES, CORE | P[address] [...] [facility] | [address] | [place] [address] | | | SERVICES, CORE | PARK [...] [facility] | [address] | [place] [address] | | | SERVICES, CORE | PARK [...] | + + + + + | [facility] | [address] | [place] [id number] | | | [place], [facility] [place] [address] | | | + [...] Starting Sat | | | 08/31/17 at 184, Until Fri | | | 12/06/17 at [...] 09/26/17 at | | | 0029, Until 12/06/17 at 2052, | | | [facility] less [...] | | | | | | Until Sat12/06/17 at 2052, 1st | | | | [...]
--- OUTSIDE RECORDS SUMMARY | ~2019-04-04 | XMS | Encounter Summary ---
Demographics + + + | Address | [address] | | | [place] [address] | + + + | Home Phone | | + + + | Preferred Language | Unknown | + + + | Marital Status | Single | + + + | Sikhism Affiliation | PEN | + + + | Race | or | + + + | Ethnic Group | Not or | + + + Author + + + | Author | [facility] [place] [place] | + + + | Organization | [facility] [email or web address] [facility] [place] [place] | + + + | Address | Unknown | + + + | Phone | Unavailable | + + + Support + + +---------+ + | Name | Relationship | Address | Phone | + + +---------+ + | Kaylie Baig | ECON | Unknown | | + + +---------+ + Care Team Providers + +------+ + | Care English Faculty Member Name | Role | Phone | + +------+ + | No Pcp Per Patient | PCP | Unavailable | + +------+ + Encounter Details +--------+ + + + + | Date | Type | Department | Care Team | Description | +--------+ + + + + | 09/01/ | Procedure | 6A Intra [facility] | | | | 2018 | Pass | [facility] | | | | | | Admitting Desk | | | | | | Located on the 9th | | | | | | floor [address] [facility] | | | | | | [address] | | | | | | [place], [place] | | | | | | [id number] | | | +--------+ + + + [...]
--- OUTSIDE RECORDS SUMMARY | ~2019-04-04 | XMS | Encounter Summary ---
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 Munoz MD, FACS Statistical Consultant, Trauma, Critical Care and Acute Care Surgery [...] | + +--------+ + + + | [employer] (ALL | Routin | 09/03/2017 | [...] | + +--------+ + + + | BG-LAC,POC ISTAT | Urgent | 08/31/2017 | | [...] DEPT OF | [address] | [place], [place] | | | CARDIOLOGY | [address] | [address] | | + + + + + [...] | | | LABORATORY | | | [facility] [place] | | | SERVICES, | | | [...] | + + + + + | [facility] | [address] | [place] [address] | | | SERVICES, CORE | [address] | | | + + + + + MAGNESIUM, PLASMA (12/05/2017 4:46 AM PDT) + +-------+ + + + | Component | Value | Ref Range | Performed | Pathologist | | | | | At | Signature | + +-------+ + + + | MAGNESIUM,P | 2.2 | 1.6 - 2.6 mg/dL | [facility] | | | LASMA | | | [...] [facility] | [address] | [place] [address] | | | SERVICES, NATALEE | VILMA [...] OF | [address] | [place], [place] | | | CARDIOLOGY | [address] | [address] | | + + + + + [...] | + + + + + | [facility] | [address] | [place] [address] | | | SERVICES, CORE | VILMA [...] DEPT OF | [address] | [place], [place] | | | CARDIOLOGY | [address] | [address] | | + + + + + [...] Note | + + | Service Account, Monitor My Meds In Interface - 12/03/2017 4:56 PM PDT [...] | + + + + + | [facility] | [address] | [place] [address] | | | SERVICES, CORE | P[address] [...] Note | + + | Service Account, [employer] Res In Interface - 12/03/2017 10:30 AM [...] DEPT | | | IMPRESSION | by: CHARISJULIO | | OF | | | | [...] + | [facility] | [address] [facility] | [place], [place] | | | CARDIOLOGY | [address] | [address] | | + + + + + [...] | + + + + + | [facility] | [address] | [place] [address] | | | ELIN, NATALEE | VILMA [...] + | [facility] - | [address] | [place] [address] | | | [place] | | | [...] [facility] | [address] | [place] [address] | | | NATALEE WORTHINGTON | PARK [...] LABORATORY | | | | | | SERVICES | | | | | | CORE [...] [facility] | [address] | [place] [address] | | | SERVICES, CORE | PARK [...] | + + + + + | [facility] | [address] [facility] | [place] [address] | | | SERVICES, CORE | VILMA [...] | | | LABORATORY | | | NEW ZE[place]ANDER | | | SERVICES, | | | [...] [facility] | [address] | [place] [address] | | | SERVICES, CORE | PARK [...] | + + + + + | [facility] | [address] | [place] [address] | | | NATALEE WORTHINGTON | VILMA [...] DEPT OF | [address] | [place], [place] | | | CARDIOLOGY | [address] | [address] | | + + + + + [...] | + + + + + | [facility] DEPT OF | [address] [facility] | [place], [place] | | | CARDIOLOGY | [address] | [address] | | + + + + + [...] | | | LABORATORY | | | NEW ZEALANDER | | | SERVICES, | | | [...] | + + + + + | [facility] | [address] | [place] [address] | | | SERVICES, CORE | PARK [...] [facility] | [address] | [place] [address] | | | ELIN, NATALEE | VILMA [...] DEPT OF | [address] | [place], [place] | | | CARDIOLOGY | [address] | [address] | | + + + + + [...] [facility] | | | | | [facility] | | | | + +---------+ [...] | + + + + + | [facility] - | [address] | [place] [address] | | | [place] | | | | + + + [...] [facility] | [address] | [place] [address] | | | NATALEE WORTHINGTON | VILMA [...] [facility] | [address] | [place] [address] | | | NATALEE WORTHINGTON | VILMA [...] | + + + + + | [facility] | [address] | [place] [address] | | | SERVICES, CORE | PARK [...] [facility] | [address] | [place] [address] | | | SERVICES, CORE | PARK [...] | | | LABORATORY | | | NEW [place]ANDER | | | SERVICES, | | | [...] the MDRD equation recommended by the | [facility] | | National Kidney Disease Education Program. [...] | + + + + + | [facility] | [address] | [place] [address] | | | SERVICES, CORE | PARK [...] [facility] | [address] | [place] [address] | | | ELIN, NATALEE | VILMA [...] GEET OF | [address] | [place], [place] | | | CARDIOLOGY | [address] | [address] | | + + + + + [...] DEPT OF | [address] | [place], [place] | | | CARDIOLOGY | [address] | [address] | | + + + + + [...] GE[facility] | [address] | [place], [place] | | | CARDIOLOGY | [address] | [address] | | + + + + + [...] DEPT OF | [address] | [place], [place] | | | CARDIOLOGY | [address] | [address] | | + + + + + [...] | | | LABORATORY | | | NEW [place]ANDER | | | SERVICES, | | | [...] | + + + + + | [facility] | [address] | [place] [address] | | | NATALEE WORTHINGTON | VILMA [...] | + + + + + | [facility] | [address] | [place] [address] | | | SERVICES, CORE | PARK [...] Note | + + | Service Account, Monitor My Meds In Interface - 11/19/2017 11:26 AM PDT [...] DEPT OF | [address] | [place], [place] | | | CARDIOLOGY | [address] | [address] | | + + + + + [...] GEET OF | [address] | [place], [place] | | | CARDIOLOGY | [facility] | [address] | | + + + + + [...] | 1.15 | 1.14 - 1.28 | [facility] | | | CORRECTED | | mmol/L [...] | + + + + + | [facility] | [address] | [place] [address] | | | SERVICES, CORE | [address] [...] and new reporting units as of | [facility] | | 09/30/2013. | LABORATORY | | | NATALEE WORTHINGTON | + + + + + + + + | Performing | Address | City/State/Zipcode | Phone Number | | Organization | | | | + + + + + | [facility] | [address] [facility] | [place] [address] | | | SERVICES, NATALEE | VILMA [...] + | [facility] - | [address] | [place] [address] | | | [place] | | | [...] 200-499 mg/dL Very High: >=500 mg/dL | SERVICESNATALEE | + + + + + + + + | Performing | Address | City/State/Zipcode | Phone Number | | Organization | | | | + + + + + | [facility] | [address] | [place] [address] | | | NATALEE WORTHINGTON | VILMA [...] [facility] | [address] | [place] [address] | | | SERVICES, CORE | VILMA [...] | | | LABORATORY | | | NEW [place]ANDER | | | SERVICES, | | | [...] | + + + + + | [facility] | [address] | [place] [address] | | | SERVICES, CORE | [address] | | | + + + + + MAGNESIUM, PLASMA (11/18/2017 7:45 AM PDT) + +-------+ + + + | Component | Value | Ref Range | Performed | Pathologist | | | | | At | Signature | + +-------+ + + + | MAGNESIUM,P | 2.2 | 1.6 - 2.6 mg/dL | [facility] | | | LASMA | | | [...] [facility] | [address] | [place] [address] | | | SERVICES, NATALEE | VILMA [...] DEPT OF | [address] | [place] | | | CARDIOLOGY | [address] | [address] | | + + + + + [...] DEPT OF | [address] | [place], [place] | | | CARDIOLOGY | [address] | [address] | | + + + + + [...] + | [facility] | [address] | [place] [address] | | | SERVICES, CORE | PARK [...] DEPT OF | [address] | [place], [place] | | | CARDIOLOGY | [address] | [address] | | + + + + + [...] | | | LABORATORY | | | NEW [place]E[facility]ANDER | | | SERVICES, | | | [...] | + + + + + | [facility] | [address] | [place] [address] | | | SERVICES, CORE | VILMA [...] | + + + + + | [facility] | [address] | [place] [address] | | | SERVICES, CORE | [address] | | | + + + + + 12 LEAD ECG (11/13/2017 9:41 AM PDT) + + + + + + | Component | Value | Ref Range | Performed | Pathologist | | | | | At | Signature | + + + + + + | VENTRICULAR | 64 | bpm | [facility] | | | RATE | | [...] DEPT OF | [address] | [place], [place] | | | CARDIOLOGY | [address] | [address] | | + + + + + [...] [facility] | [address] | [place] [address] | | | SERVICES, CORE | VILMA [...] | | | LABORATORY | | | NEW [place]EALANDER | | | SERVICES, | | | [...] the MDRD equation recommended by the | [facility] | | National Kidney Disease Education Program. [...] | + + + + + | [facility] | [address] | [place] [address] | | | ELIN, NATALEE | [address] | | | [...] | | | | | | Zaida [place]- [place], Med Lorraine | | | [...] + | [facility] - | [address] | [place] [address] | | | [place] | | | | + + + [...] Note | + + | Service Account, Herib[employer]Ph[employer] Res In Interface - 11/12/2017 1:46 PM [...] + | [facility] OF | [address] [facility] | [place], [place] | | | CARDIOLOGY | [address] | [address] | | + + + + + [...] | + + + + + | [facility] | [address] | [place] [address] | | | ELIN CORE | [address] | | | [...] | + + + + + | [facility] - | [address] | [place] [address] | | | [facility] | | | | [...] DEPT OF | [address] | [place], [place] | | | CARDIOLOGY | [address] | [address] | | + + + + + [...] | + + + + + | [facility] | [address] | [place] [address] | | | SERVICES, CORE | PARK [...] + | [facility] - | [address] | [place] [address] | | | [place] | | | | + + + [...] | + + + + + | [facility] | [address] | [place] [address] | | | NATALEE WORTHINGTON | VILMA [...] | + + + + + | [facility] | [address] [facility] | [place] [address] | | | SERVICES, CORE | [address] [...] [facility] | [address] | [place] [address] | | | SERVICES, CORE | [address] [...] | | | LABORATORY | | | NEW [place]ANDER | | | SERVICES, | | | [...] | + + + + + | [facility] | [address] | [place] [address] | | | SERVICES, NATALEE | VILMA [...] | + + + + + | [facility] | [address] | [place] [address] | | | SERVICES, CORE | P[address] [...] [facility] | [address] | [place] [address] | | | SERVICES, CORE | PARK [...] | | | LABORATORY | | | NEW ZEALANDER | | | SERVICES, | | | [...] the MDRD equation recommended by the | [facility] | | National Kidney Disease Education Program. [...] [facility] | [address] | [place] [address] | | | NATALEE WORTHINGTON | VILMA [...] DEPT OF | [address] | [place], [place] | | | CARDIOLOGY | [address] | [address] | | + + + + + [...] + + | [facility] | [address] [facility] | [place] [address] | | | SERVICES, CORE | [address] [...] | | | LABORATORY | | | NEW [place]ANDER | | | SERVICES, | | | [...] the MDRD equation recommended by the | [facility] | | National Kidney Disease Education Program. [...] | + + + + + | [facility] | [address] | [place] [address] | | | SERVICES, CORE | [address] | | | + + + + + MAGNESIUM, PLASMA (11/09/2017 4:18 AM PDT) + +-------+ + + + | Component | Value | Ref Range | Performed | Pathologist | | | | | At | Signature | + +-------+ + + + | MAGNESIUM,P | 2.0 | 1.6 - 2.6 mg/dL | [facility] | | | [facility] | | | [...] [facility] | [address] | [place] [address] | | | SERVICES, NATALEE | VILMA [...] | | | LABORATORY | | | [place]ANDER | | | SERVICES, | | | [...] | + + + + + | [email or web address] | [address] [facility] | [place] [address] | | | SERVICES, CORE | VILMA [...] | + + + + + | [facility] | [address] [facility] | [place] [address] | | | SERVICES, CORE | VILMA [...] | | | LABORATORY | | | NEW [place]ANDER | | | SERVICES, | | | [...] | + + + + + | [facility] | [address] | [place] [address] | | | SERVICES, CORE | PARK [...] DEPT OF | [address] | [place], [place] | | | CARDIOLOGY | [address] | [address] | | + + + + + [...] DEPT OF | [address] | [place], [place] | | | CARDIOLOGY | [address] | [address] | | + + + + + [...] | | | LABORATORY | | | NEW ZE[place]ANDER | | | SERVICES, | | | [...] | + + + + + | [facility] | [address] | [place] [address] | | | SERVICES, CORE | PARK [...] [facility] | [address] | [place] [address] | | | SERVICES, CORE | VILMA [...] + + + + | PRODUCT | [id number] | | [facility] | | | UNIT [...] + + + + | EXPIRATION | [id number] | | [facility] | | | DATE [...] + + + + | BLOOD | [id number] | | [facility] | | | PRODUCT [...] [facility] | [address] | [place] [address] | | | SERVICES, | [address] [...] + + + + | PRODUCT | [id number] | | [facility] | | | UNIT [...] + + + + | EXPIRATION | [id number] | | [facility] | | | DATE [...] + + + + | BLOOD | [id number] | | [facility] | | | PRODUCT [...] [facility] | [address] | [place] [address] | | | SERVICES, | [address] [...] [facility] | [address] | [place] [address] | | | SERVICES, NATALEE | VILMA [...] | + + + + + | [facility] | [address] | [place] [address] | | | SERVICES, CORE | VILMA [...] | | | LABORATORY | | | NEW [place]ANDER | | | SERVICES, | | | [...] the MDRD equation recommended by the | [facility] | | National Kidney Disease Education Program. [...] | + + + + + | [facility] | [address] [facility] | [place] [address] | | | [facility] | [address] | | | + + + + + OPERATION RECORD (11/06/2017 12:27 AM PDT) + + | Procedure Note | + + | Magdiel Stock MD - 11/06/2017 12:27 AM PDT Date of Service: 11/05/2017 Attending | | Surgeon: Magdiel Stock MD Box Stapler(s): Rg Aiken MD | | Preoperative Diagnoses: [...] head was placed in a horseshoe head start director with his C-collar still | | attached [...] the incision down to the cranium. Once kaguyuk | | skull was reached circumferentially around the prior incision, a #1 Sorrento was used | | to subperiosteally dissect [...] note for this encounter.Sonal Nunez, | | [facility] [id number] [place], [place] | | [phone] Orina, MDJB/TAHIRLDD: 11/05/2017 20:38:01DT: 11/06/2017 | | 00:27:33Job #: [id number] | |HATTIE/MODL | | | | | | /[id number] | + + CT HEAD WO CONTRAST [...] Surgeon: Magdiel | | | MD Dayami Box Stapler: Rg Aiken MD Pre-op Diagnosis: | | [...] PGY-4 Neurological Surgery Pager | | | [phone] | | + + + CAPILLARY BLOOD [...] [facility] | [address] | [place], [place] | | | [place] [facility] | [facility] | [address] | | | TESTS | | | [...] (H) | 70 - 99 mg/dL | [facility] - | | | GLUCOSE, | | [...] [facility] | [address] | [place], [place] | | | GLORIA GENAO [facility] | [facility] | [address] | | | TESTS | | | [...] | + + | Service Account, Kostas dev9k In Interface - 11/05/2017 11:31 AM PDT [...] [facility] | | | | | [facility] | | | | + +---------+ [...] | + + + + + | [facility] | [address] | [place] [address] | | | SERVICES, CORE | [address] | | | + + + + + MAGNESIUM, PLASMA (11/05/2017 6:16 AM PDT) + +-------+ + + + | Component | Value | Ref Range | Performed | Pathologist | | | | | At | Signature | + +-------+ + + + | MAGNESIUM,P | 2.0 | 1.6 - 2.6 mg/dL | [facility] | | | LASMA | | | [...] [facility] | [address] | [place] [address] | | | SERVICES, CORE | [address] [...] | | | LABORATORY | | | NEW [place]ANDER | | | SERVICES, | | | [...] | + + + + + | [facility] | [address] [facility] | [place] [address] | | | NATALEE WORTHINGTON | VILMA [...] | + + + + + | [facility] | [address] | [place] [address] | | | SERVICES, CORE | VILMA [...] + + + + | PRODUCT | [id number] | | [facility] | | | UNIT [...] + + + + | EXPIRATION | [id number] | | [facility] | | | DATE [...] + + + + | BLOOD | [id number] | | [facility] | | | PRODUCT [...] [facility] | [address] | [place] [address] | | | SERVICES, | [address] [...] + + + + | PRODUCT | [id number] | | [facility] | | | UNIT [...] + + + + | EXPIRATION | [id number] | | [facility] | | | DATE [...] + + + + | BLOOD | [id number] | | [facility] | | | PRODUCT [...] [facility] | [address] | [place] [address] | | | SERVICES, | [address] [...] SELENA [facility]NA[facility] | [address] | [place] [address] | | | SERVICES, CORE | PARK [...] [facility] | [address] | [place] [address] | | | SERVICES, | [address] [...] | + + + + + | [facility] [facility] | [address] | [place] [address] | | | SERVICES, | [address] [...] | + + + + + | [facility] | [address] | [place] [address] | | | ELIN, NATALEE | VILMA [...] GEET OF | [address] | [place], [place] | | | CARDIOLOGY | [address] | [address] | | + + + + + [...] [facility] | [address] | [place] [address] | | | SERVICES, CORE | PARK [...] | + + + + + | [facility] | [address] | [place] [address] | | | SERVICES, CORE | VILMA [...] | + + + + + | [facility] - | [address] | [place] [address] | | | [place] | | | [...] | + + + + + | [facility] | [address] | [place] [address] | | | SERVICES, CORE | VILMA [...] [facility] | [address] | [place] [address] | | | SERVICES, CORE | PARK [...] | | | LABORATORY | | | NEW ZEALANDER | | | SERVICES, | | | [...] | + + + + + | [email or web address] | [address] | [place] [address] | | | SERVICES, CORE | VILMA [...] | + + + + + | [facility] | [address] | [place] [address] | | | SERVICES, CORE | VILMA [...] [facility] | [address] | [place] [address] | | | SERVICES, CORE | PARK [...] | | | LABORATORY | | | NEW ZEALANDER | | | SERVICES, | | | [...] the MDRD equation recommended by the | [facility] | | National Kidney Disease Education Program. [...] | + + + + + | [facility] | [address] | [place] [address] | | | SERVICES, CORE | PARK [...] [facility] | [address] | [place] [address] | | | SERVICES, NATALEE | VILMA [...] | | | LABORATORY | | | [place]ER | | | SERVICES, | | | [...] the MDRD equation recommended by the | [facility] | | National Kidney Disease Education Program. [...] | + + + + + | [facility] | [address] | [place] [address] | | | SERVICES, CORE | VILMA [...] DEPT OF | [address] | [place], [place] | | | CARDIOLOGY | [facility] | [address] | | + + + + + [...] [facility] | [address] | [place] [address] | | | ELIN, NATALEE | VILMA [...] | | | LABORATORY | | | NEW ZEALANDER | | | SERVICES, | | | [...] | + + + + + | [facility] | [address] [facility] | [place] [address] | | | SERVICES, CORE | VILMA [...] + | [facility] | [address] [facility] | [place], [place] | | | CARDIOLOGY | [address] | [address] | | + + + + + [...] | | | LABORATORY | | | NEW ZEALANDER | | | SERVICES, | | | [...] | + + + + + | [facility] | [address] | [place] [address] | | | SERVICES, CORE | VILMA [...] | + + + + + | [facility] | [address] | [place] [address] | | | SERVICES, CORE | VILMA [...] (H) | 70 - 99 mg/dL | [facility] - | | | GLUCOSE, | | [...] [facility] | [address] | [place], [place] | | | [place] [facility] | [address] | [address] | | | TESTS | | | [...] | + + + + + | [facility] | [address] | [place] [address] | | | SERVICES, CORE | VILMA [...] | | | LABORATORY | | | NEW ZEALANDER | | | SERVICES, | | | [...] | + + + + + | [facility] | [address] [facility] | [place] [address] | | | SERVICES, CORE | VILMA [...] Service Account, Radiant Res In Interface - 10/29/2017 12:13 PM PDT [...] [facility] | | | | | VASC [...] [facility] | [address] | [place], [place] | | | [place] [facility] | [address] | [address] | | | TESTS | | | [...] | + + + + + | [facility] | [address] | [place] [address] | | | SERVICES, NATALEE | VILMA [...] | | | LABORATORY | | | NEW ZEALANDER | | | SERVICES, | | | [...] | + + + + + | [facility] | [address] | [place] [address] | | | SERVICES, CORE | VILMA [...] [facility] | [address] | [place], [place] | | | [place] [facility] | [address] | [address] | | | TESTS | | | [...] + | [facility] | [address] [facility] | [place], [place] | | | CARDIOLOGY | [address] | [address] | | + + + + + [...] [facility] | [address] | [place], [place] | | | GLORIA GENAO OF [facility] | [facility] | [address] | | | TESTS | | | | + + + + + CAPILLARY BLOOD GLUCOSE (NO CHG) POC (10/28/2017 6:43 AM PDT) + +---------+ [...] [facility] | [address] | [place], [place] | | | [place] [facility] | [facility] | [address] | | | TESTS | | | [...] | + + + + + | [facility] | [address] | [place] [address] | | | NATALEE WORTHINGTON | VILMA [...] + | [facility] - | [address] | [place] [address] | | | [place] | | | [...] [facility] | [address] | [place] [address] | | | ELIN, NATALEE | PARK [...] [facility] | [address] | [place] [address] | | | SERVICES, CORE | VILMA [...] | + + + + + | [facility] | [address] [facility] | [place] [address] | | | SERVICES, CORE | PARK [...] | | | LABORATORY | | | NEW ZEALANDER | | | SERVICES, | | | [...] the MDRD equation recommended by the | [facility] | | National Kidney Disease Education Program. [...] | + + + + + | [facility] | [address] | [place] [address] | | | SERVICES, CORE | [address] | | | + + + + + MAGNESIUM, PLASMA (10/28/2017 5:29 AM PDT) + +-------+ + + + | Component | Value | Ref Range | Performed | Pathologist | | | | | At | Signature | + +-------+ + + + | MAGNESIUM,P | 1.8 | 1.6 - 2.6 mg/dL | [facility] | | | LASMA | | | [...] [facility] | [address] | [place] [address] | | | ELIN, NATALEE | VILMA [...] - [facility] | [address] | [place], [place] | | | [place] [facility] | [address] | [address] | | | TESTS | | | [...] [facility] | [address] | [place], [place] | | | [place] [facility] | [address] | [address] | | | TESTS | | | [...] report as now presented. 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 Catheter lot number: | | | [id number] with a length of 55 cm was [...] [facility] | [address] | [place], [place] | | | GLORIA GENAO OF [facility] | [address] | [address] | | | TESTS | | | [...] DEPT OF | [address] | [place], [place] | | | CARDIOLOGY | [address] | [address] | | + + + + + [...] [facility] | [address] | [place], [place] | | | [place] [facility] | [address] | [address] | | | TESTS | | | [...] [facility] | [address] | [place] [address] | | | NATALEE WORTHINGTON | VILMA [...] | | | LABORATORY | | | NEW ZEALANDER | | | SERVICES, | | | [...] | + + + + + | [facility] | [address] | [place] [address] | | | SERVICES, CORE | VILMA [...] [facility] | [address] | [place], [place] | | | [place] [facility] | [address] | [address] | | | TESTS | | | [...] [facility] | [address] | [place], [place] | | | [place] [facility] | [address] | [address] | | | TESTS | | | [...] + + + | [facility] | [address] | [place], [place] | | | [place] [facility] | [address] | [address] | | | TESTS | | | [...] | + + + + + | [facility] | [address] | [place] [address] | | | SERVICES, CORE | VILMA [...] | | | LABORATORY | | | NEW ZEALANDER | | | SERVICES, | | | [...] | + + + + + | [facility] | [address] | [place] [address] | | | SERVICES, CORE | VILMA [...] (H) | 70 - 99 mg/dL | [facility] - | | | GLUCOSE, | | [...] [facility] | [address] | [place], [place] | | | [place] [facility] | [address] | [address] | | | TESTS | | | [...] | | | LABORATORY | | | NEW ZEALANDER | | | SERVICES, | | | [...] | + + + + + | [facility] | [address] | [place] [address] | | | SERVICES, CORE | PARK [...] 87 | 70 - 99 mg/dL | [facility] - | | | GLUCOSE, | | [...] [facility] | [address] | [place], [place] | | | GLORIA GENAO OF [employer] | [address] | [address] | | | TESTS | | | [...] [facility] | [address] | [place], [place] | | | CARDIOLOGY | [address] | [address] | | + + + + + [...] [facility] | [address] | [place], [place] | | | [place] [facility] | [address] | [address] | | | TESTS | | | [...] DEPT OF | [address] | [place], [place] | | | CARDIOLOGY | [address] | [address] | | + + + + + [...] | + + + + + | [facility] | [address] | [place] [address] | | | SERVICES, CORE | VILMA [...] + | [facility] - | [address] | [place] [address] | | | [place] | | | [...] | + + + + + | [facility] | [address] [facility] | [place] [address] | | | NATALEE WORTHINGTON | VILMA [...] [facility] | [address] | [place] [address] | | | SERVICES, CORE | VILMA [...] 200-499 mg/dL Very High: >=500 mg/dL | SERVICESNATALEE | + + + + + + + + | Performing | Address | City/State/Zipcode | Phone Number | | Organization | | | | + + + + + | [facility] | [address] | [place] [address] | | | NATALEE WORTHINGTON | [address] | | | + [...] [facility] | [address] | [place] [address] | | | SERVICES, CORE | PARK [...] | + + + + + | [facility] | [address] | [place] [address] | | | SERVICES, CORE | VILMA [...] [facility] | [address] | [place] [address] | | | SERVICES, CORE | PARK [...] | + + + + + | [facility] | [address] | [place] [address] | | | SERVICES, CORE | PARK [...] [facility] | [address] | [place] [address] | | | SERVICES, CORE | PARK [...] [facility] | [address] | [place] [address] | | | SERVICES, CORE | PARK [...] [facility] | [address] | [place] [address] | | | SERVICES, CORE | PARK [...] | | | LABORATORY | | | NEW ZEALANDER | | | SERVICES, | | | [...] the MDRD equation recommended by the | [facility] | | National Kidney Disease Education Program. [...] | + + + + + | [facility] | [address] [facility] | [place] [address] | | | SERVICES, CORE | VILMA [...] | | | correct patient, procedure, equipment, integrated logistics support manager and site/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 Catheter lot number: [id number] with a length of 55 | | [...] + + | [facility] | [address] [facility] [address] | [place], [place] | | | [place] [facility] | [facility] | [address] | | | TESTS | | | [...] | | Surgical Critical Care, PGY7 Pager: [phone] | | + + + CAPILLARY BLOOD [...] [facility] | [address] | [place], [place] | | | [place] [facility] | [address] | [address] | | | TESTS | | | [...] [facility] | [address] | [place], [place] | | | [place] [facility] | [address] | [address] | | | TESTS | | | [...] | | | LABORATORY | | | NEW ZEALANDER | | | SERVICES, | | | [...] | + + + + + | [facility] | [address] [facility] | [place] [address] | | | NATALEE WORTHINGTON | VILMA [...] + + + + + | [facility] | [address] | [place] [address] | | | ELIN, NATALEE | VILMA [...] [facility] | [address] | [place], [place] | | | GLORIA GENAO OF CARE | [address] | [address] | | | TESTS | | | [...] | + + + + + | [facility] | [address] [facility] | [place] [address] | | | SERVICES, CORE | VILMA [...] | | | LABORATORY | | | NEW ZEALANDER | | | SERVICES, | | | [...] | + + + + + | [facility] | [address] | [place] [address] | | | SERVICES, CORE | PARK [...] DEPT OF | [address] | [place], [place] | | | CARDIOLOGY | [address] | [address] | | + + + + + IR GASTROSTOMY TUBE EXCHANGE (10/22/2017 2:42 PM PDT) + + | Specimen | + + | | + + + + + | Narrative | Performed At | + + + | Procedure: Gastrostomy tube exchange Primary attending | [facility] | | ob tech: Shade Goodwin M.D. Preoperative diagnosis: | RADIOLOGY VOICE | | Malfunctioning Gastrostomy tube Postoperative diagnosis: Same | RECOGNITION | | Operations: Operation 1. Removal of existing Gastrostomy tube | | | over a guide wire Operation 2. Placement of 24 Bahraini GABRIEL | | | gastrostomy over guide [...] a stiff glide wire the new 24 Bahraini gastrostomy tube was | | | inserted. [...] Procedure: | | Gastrostomy tube exchangePrimary attending ob tech: Shade Goodwin, | | BrynPreoperative diagnosis: Malfunctioning Gastrostomy tubePostoperative diagnosis: | | SameOperations:Operation 1. Removal of existing Gastrostomy tube over a guide | | wireOperation 2. Placement of 24 Bahraini GABRIEL gastrostomy over guide wireNo sedation was [...] glide wire the | | new 24 Bahraini gastrostomy tube was inserted. The position of [...] stiff g lide wire the new 24 Bahraini | |gastrostomy tube was inserted. The position [...] Note | + + | Service Account, [employer] Res In Interface - 10/22/2017 10:34 AM [...] | + + + + + | [facility] | [address] [facility] | [place], [place] | | | CARDIOLOGY | [address] | [address] | | + + + + + [...] | + + + + + | [facility] | [address] [facility] | [place] [address] | | | SERVICES, CORE | VILMA [...] | | | LABORATORY | | | NEW ZEALANDER | | | SERVICES, | | | [...] | + + + + + | [facility] | [address] | [place] [address] | | | SERVICES, CORE | [address] | | | + + + + + 12 LEAD ECG (10/21/2017 2:12 PM PDT) + + + + + + | Component | Value | Ref Range | Performed | Pathologist | | | | | At | Signature | + + + + + + | VENTRICULAR | 61 | bpm | [facility] | | | RATE | | [...] | + + + + + | [facility] | [address] [facility] | [place], [place] | | | CARDIOLOGY | [address] | [address] | | + + + + + [...] | | | LABORATORY | | | NEW ZEALANDER | | | SERVICES, | | | [...] [facility] | [address] | [place] [address] | | | NATALEE WORTHINGTON | [address] [...] [facility] | [address] | [place] [address] | | | SERVICES, NATALEE | VILMA [...] [facility] | [address] | [place], [place] | | | CARDIOLOGY | [address] | [address] | | + + + + + [...] | + + + + + | [facility] | [address] [facility] | [place] [address] | | | SERVICES, CORE | [address]ARK [...] | | | LABORATORY | | | NEW ZEALANDER | | | SERVICES, | | | [...] the MDRD equation recommended by the | [facility] | | National Kidney Disease Education Program. [...] [facility] | [address] | [place] [address] | | | SERVICES, CORE | VILMA [...] | + + + + + | [facility] | [address] [facility] | [place], [place] | | | CARDIOLOGY | [address] | [address] | | + + + + + [...] | | | LABORATORY | | | NEW ZEALANDER | | | SERVICES, | | | [...] the MDRD equation recommended by the | [facility] | | National Kidney Disease Education Program. [...] | + + + + + | [facility] | [address] | [place] [address] | | | SERVICES, CORE | PARK [...] [facility] | [address] | [place] [address] | | | NATALEE WORTHINGTON | VILMA [...] OF | [address] | [place], [place] | | | CARDIOLOGY | [facility] | [address] | | + + + + + [...] | | | LABORATORY | | | NEW ZEALANDER | | | SERVICES, | | | [...] the MDRD equation recommended by the | [facility] | | National Kidney Disease Education Program. [...] | + + + + + | [facility] | [address] | [place] [address] | | | ELIN, NATALEE | PARK [...] | + + + + + | [facility] | [address] | [place] [address] | | | SERVICES, CORE | VILMA [...] Note | + + | Service Account, [employer] Res In Interface - 10/15/2017 3:58 PM [...] DEPT OF | [address] | [place], [place] | | | CARDIOLOGY | [address] | [address] | | + + + + + [...] + + + + + | [facility] | [address] | [place], [place] | | | [place] [facility] OF CARE | [address] | [address] | | | TESTS | | | [...] | + + + + + | [facility] | [address] | [place] [address] | | | SERVICES, NATALEE | VILMA [...] [facility] | [address] | [place], [place] | | | GLORIA GENAO OF CARE | [address] | [address] | | | TESTS | | | [...] DEPT OF | [address] | [place], [place] | | | CARDIOLOGY | [address] | [address] | | + + + + + [...] | + + + + + | [facility] | [address] [facility] | [place] [address] | | | NATALEE WORTHINGTON | [address] [...] | | | LABORATORY | | | NEW ZEALANDER | | | SERVICES, | | | [...] | + + + + + | [facility] | [address] | [place] [address] | | | SERVICES, CORE | PARK [...] | + + + + + | [facility] | [address] | [place] [address] | | | SERVICES, CORE | VILMA [...] (H) | 70 - 99 mg/dL | [facility] - | | | GLUCOSE, | | [...] [facility] | [address] | [place], [place] | | | [place] [facility]ARE | [address] | [address] | | | TESTS | | | [...] [facility] | [address] | [place], [place] | | | [place] [facility]ARE | [address] | [address] | | | TESTS | | | [...] [facility] | [address] | [place] [address] | | | SERVICES, CORE | PARK [...] | | | LABORATORY | | | NEW ZEALANDER | | | SERVICES, | | | [...] the MDRD equation recommended by the | [facility] | | National Kidney Disease Education Program. [...] | + + + + + | [facility] | [address] [facility] | [place] [address] | | | SERVICES, [facility] | [address] | | | + + + + + OPERATION RECORD (10/12/2017 8:50 PM PDT) + + | Procedure Note | + + | Pilar Cotto MD - 10/12/2017 8:50 PM PDT Date of Service: 10/12/2017 | | Attending Surgeon: Chaz Munoz MD Box Stapler(s): Randell Dixon M.D., | | fellow. George [...] saline. We then | | placed a 19-Bahraini drain deep into the abscess cavity, tracking [...] of the case. Pilar Cotto, | | Edi Munoz MDKMSalvador/MODLDD: 10/12/2017 19:50:06DT: 10/12/2017 20:50:54Job #: | | [id number] | + + X-RAY PORTABLE CHEST 1 [...] Note | + + | Service Account, [employer] Res In Interface - 10/13/2017 9:04 AM [...] + + | [facility] | [address] [facility] [address] | [place], [place] | | | [place] [facility] | [address] | [address] | | | TESTS | | | [...] | + + + + + | [facility] | [address] | [place] [address] | | | SERVICES, CORE | PARK [...] | | | LABORATORY | | | NEW ZEALANDER | | | SERVICES, | | | [...] | + + + + + | [facility] | [address] | [place] [address] | | | NATALEE WORTHINGTON | [address] [...] to administering the 0300 dose on | [facility] | | 10/12, thanks! | LABORATORY | | | NATALEE WORTHINGTON | + + + + + + + + | Performing | Address | City/State/Zipcode | Phone Number | | Organization | | | | + + + + + | [facility] | [address] | [place] [address] | | | SERVICES, NATALEE | PARK [...] DEPT OF | [address] | [place], [place] | | | CARDIOLOGY | [address] | [address] | | + + + + + [...] DEPT OF | [address] | [place], [place] | | | CARDIOLOGY | [address] | [address] | | + + + + + [...] [facility] | [address] | [place] [address] | | | SERVICES, CORE | VIL[address] [...] | + + + + + | [facility] | [address] | [place] [address] | | | SERVICES, NATALEE | [address]ILMA [...] | | | LABORATORY | | | NEW ZEALANDER | | | SERVICES, | | | [...] | + + + + + | [facility] | [address] | [place] [address] | | | SERVICES, NATALEE | [address] | | | + + + + + PROCEDURE NOTE (10/10/2017 10:00 PM PDT) + + + | Narrative | Performed At | + + + | Darius Link MD 10/12/2017 11:11 AM OPERATIVE REPORT | | | DATE OF OPERATION: 10/10/2017 ATTENDING SURGEON: 1. Dr. Munoz | | | SECURITY SERVICES SPECIALIST: 1. Darius Link MD INDICATIONS: Dysphagia | | | and need for long-term nutrition access PREOPERATIVE DIAGNOSIS: | | | 1.Dysphagia and need for long-term nutrition access | | | POSTOPERATIVE DIAGNOSIS: [...] | | | [place] [id number] Chief Resident | | | Neurosurgery | [...] | + + + + + | [facility] | [address] | [place] [address] | | | SERVICES, CORE | VILMA [...] | | | LABORATORY | | | NEW ZEALANDER | | | SERVICES, | | | [...] | + + + + + | [facility] | [address] | [place] [address] | | | NATALEE [place] | [facility] [...] [facility] | [address] | [place] [address] | | | SERVICES, CORE | [address] | | | + + + + + OPERATION RECORD (10/10/2017 12:40 PM PDT) + + | Procedure Note | + + | Magdiel Stock MD - 10/10/2017 12:40 PM PDT Date of Service: 10/10/2017 Attending | | Surgeon: Magdiel Stock MD Box Stapler(s): Cecilia Hernandez, | | . Preoperative Diagnoses: [...] This is a 67-year-old male. Please see [facility] for full details. He | | was [...] | the note for this encounter.Sonal Nunez [facility] [id number] [facility] | | [place] [id number] Orina, MDFA/MODLDD: | | 10/10/2017 11:52:15DT: 10/10/2017 12:40:41Job #: [id number] | | | | | |I was present for the critical portions of the procedure as described in the note for this encounter. | | | |Magdiel Stock MD | | | |Magdiel Stock MD | |[address] | |[address] | |[facility] | |[place] [address] | |[phone] | | | | | |Magdiel Stock MD | |FA/MODL | | | | | | /[id number] | + + X-RAY ABDOMEN 1 VIEW [...] | + + + + + | [facility] | [address] | [place] [address] | | | [place] | | | | + + + [...] + | [facility] | [address] | [place] [address] | | | [place] | | | [...] Gram Stain: No squamous epithelial cells | [facility] | | Many polymorphonuclear cells No organisms seen | | + + + + + + + + | Performing | Address | City/State/Zipcode | Phone Number | | Organization | | | | + + + + + | [facility] | [address] | [place] [address] | | | [place] | | | [...] + | [facility] | [address] | [place] [address] | | | [facility] | | | | + + + [...] | + + + + + | [facility] - | [address] | [place] [address] | | | [place] | | | [...] Gram Stain: No squamous epithelial cells | [place] | | Many polymorphonuclear cells No organisms seen | | + + + + + + + + | Performing | Address | City/State/Zipcode | Phone Number | | Organization | | | | + + + + + | [facility] | [address] | [place] [address] | | | [place] | | | [...] + | [facility] | [address] | [place] [address] | | | [place] | | | [...] Gram Stain: No squamous epithelial cells | [place] | | Few polymorphonuclear cells No organisms seen | | + + + + + + + + | Performing | Address | City/State/Zipcode | Phone Number | | Organization | | | | + + + + + | [facility] | [address] | [place], [place] [address] | | | [place] | | | | + + + [...] + | [facility] | [address] | [place] [address] | | | [place] | | | [...] + | [facility] | [address] | [place] [address] | | | [place] | | | [...] Gram Stain: No squamous epithelial cells | [place] | | Moderate polymorphonuclear cells No organisms seen | | + + + + + + + + | Performing | Address | City/State/Zipcode | Phone Number | | Organization | | | | + + + + + | [facility] | [address] | [place] [address] | | | [place] | | | [...] detected | [facility] - | | | [place] | + + + + + + + + | Performing | Address | City/State/Zipcode | Phone Number | | Organization | | | | + + + + + | [facility] | [address] | [place] [address] | | | [place] | | | | + + + [...] + | [facility] | [address] | [place] [address] | | | [place] | | | [...] + | [facility] | [address] | [place] [address] | | | [place] | | | [...] + | [facility] | [address] | [place] [address] | | | [place] | | | | + + + [...] + | [facility] | [address] | [place] [address] | | | [place] | | | [...] Gram Stain: No squamous epithelial cells | [facility] | | Moderate polymorphonuclear cells No organisms seen | | + + + + + + + + | Performing | Address | City/State/Zipcode | Phone Number | | Organization | | | | + + + + + | [facility] | [address] | [place] [address] | | | [place] | | | [...] detected | [facility] - | | | [place] | + + + + + + + + | Performing | Address | City/State/Zipcode | Phone Number | | Organization | | | | + + + + + | [facility] - | [address] | [place] [address] | | | [place] | | | | + + + [...] [facility] | [address] | [place] [address] | | | SERVICES, CORE | PARK [...] | + + + + + | [facility] | [address] | [place] [address] | | | SERVICES, CORE | VILMA [...] [facility] | [address] | [place] [address] | | | SERVICES, CORE | PARK [...] | | | LABORATORY | | | NEW Z[place]ANDER | | | SERVICES, | | | [...] the MDRD equation recommended by the | [facility] | | National Kidney Disease Education Program. [...] [facility] | [address] | [place] [address] | | | SERVICES, CORE | VILMA [...] DEPT OF | [address] | [place], [place] | | | CARDIOLOGY | [address] | [address] | | + + + + + [...] + + + + | PRODUCT | [id number] | | [facility] | | | UNIT [...] + + + + | EXPIRATION | [id number] | | [facility] | | | DATE [...] + + + + | BLOOD | [id number] | | [facility] | | | PRODUCT [...] | + + + + + | [facility] | [address] | [place] [address] | | | SERVICES, | [address] [...] + + + + | PRODUCT | [id number] | | [facility] | | | UNIT [...] + + + + | EXPIRATION | [id number] | | [facility] | | | DATE [...] + + + + | BLOOD | [id number] | | [facility] | | | PRODUCT [...] [facility] | [address] | [place] [address] | | | SERVICES, | [address] [...] LABORATORY | [address] | [place] [address] | | | SERVICES, | [address] [...] | + + + + + | [facility] | [address] | [place] [address] | | | SERVICES, | [address] [...] [facility] | [address] | [place] [address] | | | SERVICES, | [address] [...] valves (2.5 - 3.5) INR APTT | ELIN CORE | | Therapeutic Range: (75 - 120) sec | | | Heparin levels of 0.35 - 0.7 U/mL | | + + + + + + + + | Performing | Address | City/State/Zipcode | Phone Number | | Organization | | | | + + + + + | [facility] | [address] | [place] [address] | | | ELIN, [facility] | [address] | | | + [...] + | [facility] | [address] [facility] | [place], [place] | | | CARDIOLOGY | [address] | [address] | | + + + + + [...] Service Account, Radiant Res In Interface - 10/08/2017 10:47 AM [...] [facility] | [address] | [place], [place] | | | [facility] | [facility] | [address] | | | TESTS | | | [...] | 09/05/2017 | LABORATORY | | | ELIN CORE | + + + + + + + + | Performing | Address | City/State/Zipcode | Phone Number | | Organization | | | | + + + + + | [facility] | [address] | [place] [address] | | | SERVICES, NATALEE | PARK [...] [facility] | [address] | [place] [address] | | | SERVICES, CORE | PARK [...] | | | LABORATORY | | | NEW ZEALANDER | | | SERVICES, | | | [...] | + + + + + | [facility] | [address] | [place] [address] | | | NATALEE WORTHINGTON | VILMA [...] [facility] | [address] | [place], [place] | | | [facility] | [address] | [address] | | | TESTS | | | [...] [facility] | [address] | [place], [place] | | | [place] | [address] | [address] | | | TESTS | | | [...] [facility] | [address] | [place], [place] | | | GL[facility] GENAO OF CARE | [address] | [address] | | | TESTS | | | [...] [facility] | [address] | [place], [place] | | | [facility] OF CARE | [address] | [address] | | | TESTS | | | [...] [facility] | [address] | [place], [place] | | | [place] | [address] | [address] | | | TESTS | | | [...] [facility] | [address] | [place] [address] | | | NATALEE WORTHINGTON | VILMA [...] | + + + + + | [facility] | [address] [facility] | [place] [address] | | | SERVICES, CORE | VILMA [...] | | | LABORATORY | | | NEW ZEALANDER | | | SERVICES, | | | [...] | + + + + + | [facility] | [address] | [place] [address] | | | SERVICES, CORE | VILMA [...] [facility] | [address] | [place], [place] | | | JOHN GENAO | [facility] | [address] | | | TESTS | | | [...] - [facility] | [address] | [place], [place] | | | GLORIA GENAO OF [facility] | [address] | [address] | | | TESTS | | | [...] DEPT OF | [address] | [place], [place] | | | CARDIOLOGY | [address] | [address] | | + + + + + [...] [facility] | [address] | [place], [place] | | | GLORIA GENAO OF [facility] | [address] | [address] | | | TESTS | | | [...] | + + + + + | [facility] | [address] | [place] [address] | | | NATALEE WORTHINGTON | VILMA [...] | + + + + + | [facility] | [address] | [place] [address] | | | NATALEE WORTHINGTON | PARK [...] | | | LABORATORY | | | NEW ZEALANDER | | | SERVICES, | | | [...] | + + + + + | [facility] | [address] | [place] [address] | | | SERVICES, CORE | PARK [...] [facility] | [address] | [place], [place] | | | GL[facility]IA GENAO OF CARE | [address] | [address] | | | TESTS | | | [...] PIYUSH | [address] | [place], [place] | | | GL[facility] GE[facility] OF CARE | [address] | [address] | | | TESTS | | | [...] (H) | 70 - 99 mg/dL | [facility] - | | | GLUCOSE, | | [...] P[facility]ET[facility] | [address] | [place], [place] | | | [place] [facility] | [address] | [address] | | | TESTS | | | [...] [facility] | [address] | [place], [place] | | | [facility] GE[facility] OF CARE | [address] | [address] | | | TESTS | | | [...] + | [facility] | [address] | [place], [place] | | | CARDIOLOGY | [email or web address] | [address] | | + + + + + [...] | + + + + + | [facility] | [address] | [place] [address] | | | ELIN, NATALEE | VILMA [...] | + + + + + | [facility] | [address] | [place] [address] | | | SERVICES, CORE | VILMA [...] | | | LABORATORY | | | NEW ZEALANDER | | | SERVICES, | | | [...] | + + + + + | [facility] | [address] | [place] [address] | | | SERVICES, CORE | VILMA [...] (H) | 70 - 99 mg/dL | [facility] - | | | GLUCOSE, | | [...] [facility]T | [address] | [place], [place] | | | [place] [facility] | [address] | [address] | | | TESTS | | | [...] MAR[facility] | [address] | [place], [place] | | | GL[facility]IA GENAO OF CARE | [address] | [address] | | | TESTS | | | [...] MAR[facility] | [address] | [place], [place] | | | GL[facility] GE[facility] OF CARE | [address] | [address] | | | TESTS | | | [...] [facility] | [address] | [place], [place] | | | [place] | [address] | [address] | | | TESTS | | | [...] [facility] | [address] | [place], [place] | | | GLORIA GENAO OF [facility] | [address] | [address] | | | TESTS | | | [...] | + + + + + | [facility] | [address] | [place] [address] | | | SERVICES, CORE | PARK [...] [facility] | [address] | [place] [address] | | | NATALEE WORTHINGTON | VILMA [...] | | | LABORATORY | | | NEW ZEALANDER | | | SERVICES, | | | [...] | + + + + + | [facility] | [address] | [place] [address] | | | SERVICES, NATALEE | VILMA [...] RAPHAELAM | [address] | [place], [place] | | | GLORIA GENAO OF CARE | [facility] | [address] | | | TESTS | | | [...] (H) | 70 - 99 mg/dL | [facility] - | | | GLUCOSE, | | [...] PIYUSH | [address] | [place], [place] | | | [place] | [address] | [address] | | | TESTS | | | [...] | + + + + + | [facility] | [address] | [place] [address] | | | SERVICES, CORE | VILMA [...] by | | | | | | [id number],[id number] | | | | | | Rogelio Pickard, [facility],[place] | | | | | | [id number] | | | | | | [phone].[email or web address]. | | | | | | Gui [...] [facility] | [address] | [place], [place] | | | [facility] | | [address] | | + + + + + [...] [facility] | [address] | [place] [address] | | | SERVICES, CORE | PARK [...] [facility] | [address] | [place] [address] | | | SERVICES, CORE | PARK [...] modified from | [facility] | | original furnace combustion analyst's approved specifications. The performance | LABORATORY | | of the TERADATA DEVELOPER HIV Combo test, with or without confirmation, was not | SERVICES, | | tested in pediatric patients less than 2 years of age. [facility] | SPECIAL IMM + | | guidelines [...] | + + + + + | [facility] | [address] | [place] [address] | | | SERVICES, SPECIAL | VILMA [...] (H) | 70 - 99 mg/dL | [facility] - | | | GLUCOSE, | | | MARK[facility]ISAM | | | POC | | | [...] [facility] | [address] | [place], [place] | | | [place] [facility] | [address] | [address] | | | TESTS | | | [...] [facility] | [address] | [place], [place] | | | GLORIA GENAO OF CARE | [facility] | [address] | | | TESTS | | | [...] [facility] | [address] | [place] [address] | | | ELIN, NATALEE | PARK [...] [facility] | [address] | [place] [address] | | | SERVICES, CORE | PARK [...] | | | LABORATORY | | | NEW ZEALANDER | | | SERVICES, | | | [...] the MDRD equation recommended by the | [facility] | | National Kidney Disease Education Program. [...] | + + + + + | [facility] | [address] | [place] [address] | | | ELIN, CORE | VILMA [...] [facility] | [address] | [place], [place] | | | [place] [facility] [facility] | [facility] | [address] | | | TESTS | | | [...] [facility] | [address] | [place], [place] | | | [place] [facility] | [address] | [address] | | | TESTS | | | [...] DEPT OF | [address] | [place], [place] | | | CARDIOLOGY | [address] | [address] | | + + + + + [...] [facility] | [address] | [place], [place] | | | GL[facility]IA GENAO OF CARE | [address] | [address] | | | TESTS | | | [...] Preliminary: Marcelo Morley MD Dictation initiated: Marcelo | | | MD Milli 10/02/2017 10:20 AM | | + + [...] [facility]USH | [address] | [place], [place] | | | [facility] GE[facility]O OF CARE | [address] | [address] | | | TESTS | | | [...] | + + + + + | [facility] | [address] | [place] [address] | | | NATALEE WORTHINGTON | VILMA [...] | + + + + + | [facility] | [address] [facility] | [place] [address] | | | SERVICES, CORE | VILMA [...] | | | LABORATORY | | | NEW ZEALANDER | | | SERVICES, | | | [...] | + + + + + | [facility] | [address] | [place] [address] | | | SERVICES, CORE | VILMA [...] (H) | 70 - 99 mg/dL | [facility] - | | | GLUCOSE, | | [...] + + + | [facility] | [address] | [place], [place] | | | GLORIA GENAO OF CARE | [address] | [address] | | | TESTS | | | [...] | | POC | | | GLORIA GEANO | | [...] [facility] | [address] | [place], [place] | | | [place] [facility] | [address] | [address] | | | TESTS | | | [...] Service Adal, Kostas Res In Interface - 10/01/2017 2:15 [...] [facility] | [address] | [place], [place] | | | [place] [facility] | [address] | [address] | | | TESTS | | | [...] Note | + + | Service Account, Monitor My Meds In Interface - 10/01/2017 11:34 AM PDT [...] [facility] | [address] | [place], [place] | | | [place] [facility] | [address] | [address] | | | TESTS | | | [...] | + + + + + | [facility] | [address] [facility] | [place] [address] | | | NATALEE WORTHINGTON | VILMA [...] | + + + + + | [facility] | [address] [facility] | [place] [address] | | | SERVICES, NATALEE | VILMA [...] | | | LABORATORY | | | NEW ZEALANDER | | | SERVICES, | | | [...] | + + + + + | [facility] | [address] | [place] [address] | | | SERVICES, CORE | VILMA [...] (H) | 70 - 99 mg/dL | [facility] - | | | GLUCOSE, | | [...] [facility] | [address] | [place], [place] | | | GL[facility]IA GENAO OF CARE | [address] | [address] | | | TESTS | | | [...] [facility] | [address] | [place], [place] | | | [place], POINT OF CARE | [address] | [address] | | | TESTS | | | [...] [facility] | [address] | [place], [place] | | | CARDIOLOGY | [address] | [address] | | + + + + + [...] necessary, edited the report. I agree with katalina e report as now presented. | | [...] [facility] | [address] | [place], [place] | | | [place] [facility] | [address] | [address] | | | TESTS | | | [...] [facility] | [address] | [place], [place] | | | GL[facility]IA GENAO OF CARE | [address] | [address] | | | TESTS | | | [...] | + + + + + | [facility] | [address] | [place] [address] | | | ELIN, NATALEE | PARK [...] [facility] | [address] | [place] [address] | | | SERVICES, CORE | VILMA [...] | | | LABORATORY | | | NEW ZEALANDER | | | SERVICES, | | | [...] | + + + + + | [facility] | [address] | [place] [address] | | | SERVICES, NATALEE | VILMA [...] [facility] | [address] | [place], [place] | | | GLORIA GENAO OF [facility] | [facility] | [address] | | | TESTS | | | [...] (H) | 70 - 99 mg/dL | [facility] - | | | GLUCOSE, | | [...] [facility] | [address] | [place], [place] | | | [place] [facility] | [address] | [address] | | | TESTS | | | [...] [facility]YUSH | [address] | [place], [place] | | | GLORIA GENAO OF [facility] | [address] | [address] | | | TESTS | | | [...] DEPT OF | [address] | [place], [place] | | | CARDIOLOGY | [address] | [address] | | + + + + + [...] [facility] | [address] | [place], [place] | | | [place] [facility] | [address] | [address] | | | TESTS | | | [...] [facility] | [address] | [place] [address] | | | SERVICES, CORE | PARK [...] | | | LABORATORY | | | NEW ZEALANDER | | | SERVICES, | | | [...] the MDRD equation recommended by the | [facility] | | National Kidney Disease Education Program. [...] [facility] | [address] | [place] [address] | | | SERVICES, CORE | PARK [...] | + + + + + | [facility] | [address] | [place] [address] | | | SERVICES, CORE | PARK [...] [facility] | [address] | [place], [place] | | | GLORIA GENAO OF GM | [address] | [address] | | | TESTS | | | [...] [facility]YUSH | [address] | [place], [place] | | | GLORIA GENAO OF CARE | [facility] | [address] | | | TESTS | | | [...] (H) | 70 - 99 mg/dL | [facility] - | | | GLUCOSE, | | [...] [facility] | [address] | [place], [place] | | | GLORIA GENAO OF [facility] | [address] | [address] | | | TESTS | | | [...] DEPT OF | [address] | [place], [place] | | | CARDIOLOGY | [address] | [address] | | + + + + + [...] - [facility] | [address] | [place], [place] | | | [place] [facility] | [address] | [address] | | | TESTS | | | [...] | + + + + + | [facility] | [address] | [place] [address] | | | SERVICES, CORE | VILMA [...] | + + + + + | [facility] | [address] [facility] | [place] [address] | | | SERVICES, CORE | VILMA [...] | | | LABORATORY | | | NEW ZEALANDER | | | SERVICES, | | | [...] the MDRD equation recommended by the | [facility] | | National Kidney Disease Education Program. [...] | + + + + + | [facility] | [address] | [place] [address] | | | SERVICES, CORE | VILMA [...] (H) | 70 - 99 mg/dL | [facility] - | | | GLUCOSE, | | [...] + + + | [facility] | [address] | [place], [place] | | | [place] [facility] [facility] | [address] | [address] | | | TESTS | | | [...] MARQUAM | [address] | [place], [place] | | | GLORIA GENAO OF [facility] | [address] | [address] | | | TESTS | | | [...] poorly cleared with dry swallows. Please see eech pathology report for full details | [...] [facility] | [address] | [place], [place] | | | [place] [facility] | [address] | [address] | | | TESTS | | | [...] MARQUAM | [address] | [place], [place] | | | [place] [facility] | [address] | [address] | | | TESTS | | | [...] [facility] | [address] | [place] [address] | | | NATALEE WORTHINGTON | PARK [...] [facility] | [address] | [place] [address] | | | SERVICES, CORE | PARK [...] | | | LABORATORY | | | NEW ZEALANDER | | | SERVICES, | | | [...] the MDRD equation recommended by the | [facility] | | National Kidney Disease Education Program. [...] | + + + + + | [facility] | [address] | [place] [address] | | | NATALEE WORTHINGTON | VILMA [...] MARQUAM | [address] | [place], [place] | | | GLORIA GENAO OF [facility] | [facility] | [address] | | | TESTS | | | [...] [facility] | [address] | [place], [place] | | | GLORIA GENAO OF [facility] | [address] | [address] | | | TESTS | | | [...] DEPT OF | [address] | [place], [place] | | | CARDIOLOGY | [facility] | [address] | | + + + + + [...] MARQU[facility] | [address] | [place], [place] | | | GLORIA GENAO OF GM | [facility] | [address] | | | TESTS | | | [...] P[facility]T | [address] | [place], [place] | | | [place] [facility] | [address] | [address] | | | TESTS | | | [...] PIYUSH | [address] | [place], [place] | | | [place] [facility] [facility] | [facility] | [address] | | | TESTS | | | [...] [facility] | [address] | [place] [address] | | | SERVICES, CORE | PARK [...] [facility] | [address] | [place] [address] | | | SERVICES, CORE | PARK [...] | | | LABORATORY | | | NEW ZEALANDER | | | SERVICES, | | | [...] the MDRD equation recommended by the | [facility] | | National Kidney Disease Education Program. [...] | + + + + + | [facility] | [address] [facility] [facility] | [place] [address] | | | ELIN, NATALEE | VILMA [...] SELENA [facility] | [address] | [place], [place] | | | [place] [facility] [facility] | [address] | [address] | | | TESTS | | | [...] Note | + + | Service Account, [employer] Res In Interface - 09/25/2017 12:32 PM [...] [facility] | [address] | [place] [address] | | | SERVICES, CORE | PARK [...] [facility] | [address] | [place] [address] | | | SERVICES, CORE | PARK [...] | | | LABORATORY | | | [place] [facility] | | | SERVICES, | | | [...] | + + + + + | [facility] | [address] | [place] [address] | | | NATALEE WORTHINGTON | VILMA [...] DEPT OF | [address] | [place], [place] | | | CARDIOLOGY | [address] | [address] | | + + + + + [...] Note | + + | Service Account, Monitor My Meds In Interface - 09/24/2017 4:09 PM PDT [...] [facility] | [address] | [place] [address] | | | SERVICES, CORE | PARK [...] | | | LABORATORY | | | [place] | | | SERVICES, | | | [...] the MDRD equation recommended by the | [facility] | | National Kidney Disease Education Program. [...] | + + + + + | [facility] | [address] | [place] [address] | | | SERVICES, CORE | PARK [...] [facility] | [address] | [place] [address] | | | SERVICES, CORE | PARK [...] | + + + + + | [facility] | [address] | [place] [address] | | | NATALEE WORTHINGTON | VILMA [...] | + + + + + | [facility] | [address] | [place] [address] | | | SERVICES, CORE | PARK [...] | | | LABORATORY | | | [place]ER | | | SERVICES, | | | [...] | + + + + + | [facility] | [address] | [place] [address] | | | SERVICES, CORE | VILMA [...] (H) | 70 - 99 mg/dL | [facility] - | | | GLUCOSE, | | [...] [facility] | [address] | [place], [place] | | | [facility] | [address] | [address] | | | TESTS | | | [...] [facility] | [address] | [place], [place] | | | [facility] | [address] | [address] | | | TESTS | | | [...] | + + + + + | [facility] | [address] | [place] [address] | | | SERVICES, CORE | VILMA [...] DEPT OF | [address] | [place], [place] | | | CARDIOLOGY | [address] | [address] | | + + + + + [...] | + + + + + | [facility] | [address] | [place] [address] | | | SERVICESNATALEE | [address] [...] | + + + + + | [facility] | [address] | [place] [address] | | | ELIN, NATALEE | PARK [...] | | | LABORATORY | | | [place]ANDER | | | SERVICES, | | | [...] | + + + + + | [facility] | [address] | [place] [address] | | | SERVICES, CORE | VILMA [...] [facility] | [address] | [place], [place] | | | [facility] GE[facility] | [address] | [address] | | | TESTS | | | [...] [facility] | [address] | [place] [address] | | | SERVICES, CORE | PARK [...] [facility] | [address] | [place] [address] | | | SERVICES, CORE | PARK [...] | | | LABORATORY | | | [place]ER | | | SERVICES, | | | [...] the MDRD equation recommended by the | [facility] | | National Kidney Disease Education Program. [...] | + + + + + | [facility] | [address] | [place] [address] | | | SERVICES, [facility] | [address] | | | + [...] Note | + + | Service Account, RadiMusclePharm Res In Interface - 09/20/2017 7:50 PM [...] Note | + + | Service Account, Spotigoant Res In Interface - 09/20/2017 6:25 PM [...] Adal, Kostas Res In Interface - 09/20/2017 5:17 [...] DEPT OF | [address] | [place], [place] | | | CARDIOLOGY | [address] | [address] | | + + + + + [...] | + + + + + | [facility] | [address] | [place] [address] | | | NATALEE WORTHINGTON | VILMA [...] | + + + + + | [facility] | [address] | [place] [address] | | | NATALEE WORTHINGTON | PARK [...] | | | LABORATORY | | | NEW ZEALANDER | | | SERVICES, | | | [...] | + + + + + | [email or web address] | [address] | [place] [address] | | | SERVICES, CORE | PARK [...] [facility] | [address] | [place] [address] | | | NATALEE WORTHINGTON | PARK [...] | + + + + + | [facility] | [address] | [place] [address] | | | SERVICES, NATALEE | VILMA [...] | | | LABORATORY | | | NEW ZEALANDER | | | SERVICES, | | | [...] | + + + + + | [facility] | [address] | [place] [address] | | | SERVICES, CORE | PARK [...] [facility] | [address] | [place] [address] | | | NATALEE WORTHINGTON | VILMA [...] | + + + + + | [facility] | [address] | [place] [address] | | | SERVICES, NATALEE | PARK [...] | | | LABORATORY | | | NEW ZEALANDER | | | SERVICES, | | | [...] | + + + + + | [facility] | [address] | [place] [address] | | | SERVICES, CORE | VILMA [...] | | + +---------+ + + | [facility] | | | | | VAS [...] | + + + + + | [facility] | [address] | [place] [address] | | | SERVICES, CORE | [address] | | | + + + + + MAGNESIUM, PLASMA (09/17/2017 6:46 AM PDT) + +-------+ + + + | Component | Value | Ref Range | Performed | Pathologist | | | | | At | Signature | + +-------+ + + + | MAGNESIUM,P | 2.4 | 1.6 - 2.6 mg/dL | [facility] [...] [facility] | [address] | [place] [address] | | | SERVICES, NATALEE | VILMA [...] | | | LABORATORY | | | NEW ZEALANDER | | | SERVICES, | | | [...] | + + + + + | [facility] | [address] [facility] | [place] [address] | | | SERVICES, NATALEE | VILMA [...] Note | + + | Service Account, Monitor My Meds In Interface - 09/16/2017 1:34 PM PDT [...] Note | + + | Service Account, Monitor My Meds In Interface - 09/16/2017 11:41 AM PDT [...] [facility] | [address] | [place] [address] | | | SERVICES, CORE | [address] | | | + + + + + MAGNESIUM, PLASMA (09/16/2017 5:32 AM PDT) + +-------+ + + + | Component | Value | Ref Range | Performed | Pathologist | | | | | At | Signature | + +-------+ + + + | MAGNESIUM,P | 2.3 | 1.6 - 2.6 mg/dL | [facility] | | | [place] | | | [...] [facility] | [address] | [place] [address] | | | ELIN, NATALEE | VILMA [...] | | | LABORATORY | | | NEW ZEALANDER | | | SERVICES, | | | [...] | + + + + + | [facility] | [address] | [place] [address] | | | SERVICES, CORE | VILMA [...] PICC LINE CHECK HISTORY: PICC COMPARISON: | [facility] | | 09/10/17 FINDINGS: A left upper [...] | pause verifies correct patient, 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 Catheter lot number: [id number] with a length of 55 | | [...] Note | + + | Service Account, Monitor My Meds In Interface - 09/15/2017 2:13 PM PDT [...] [facility] | [address] | [place] [address] | | | NATALEE WORTHINGTON | VILMA [...] | + + + + + | [facility] | [address] [facility] | [place] [address] | | | NATALEE WORTHINGTON | PARK [...] | | | LABORATORY | | | NEW ZEALANDER | | | SERVICES, | | | [...] | + + + + + | [facility] | [address] | [place] [address] | | | SERVICES, CORE | VILMA [...] | + + + + + | [facility] | [address] | [place] [address] | | | SERVICES, CORE | PARK [...] [facility] | [address] | [place] [address] | | | SERVICES, NATALEE | VILMA [...] | | | LABORATORY | | | NEW ZEALANDER | | | SERVICES, | | | [...] | + + + + + | [facility] | [address] | [place] [address] | | | SERVICES, CORE | VILMA [...] | + + + + + | [facility] | [address] | [place] [address] | | | SERVICES, CORE | [address] | | | + + + + + MAGNESIUM, PLASMA (09/13/2017 6:34 AM PDT) + +-------+ + + + | Component | Value | Ref Range | Performed | Pathologist | | | | | At | Signature | + +-------+ + + + | MAGNESIUM,P | 2.3 | 1.6 - 2.6 mg/dL | [facility] | | | LASMA | | | [...] [facility] | [address] | [place] [address] | | | SERVICES, NATALEE | VILMA [...] | | | LABORATORY | | | NEW ZEALANDER | | | SERVICES, | | | [...] 11 | 4 - 11 mmol/L | [facility] | | | GAP(ALB | | | [...] | + + + + + | [facility] | [address] | [place] [address] | | | SERVICES, CORE | VILMA [...] Service Adal, Radiant Res In Interface - 09/12/2017 9:13 [...] | + + + + + | [facility] | [address] | [place] [address] | | | SERVICES, CORE | VILMA [...] [facility] | [address] | [place] [address] | | | SERVICES, CORE | PARK [...] | | | LABORATORY | | | NEW ZEALANDER | | | SERVICES, | | | [...] the MDRD equation recommended by the | [facility] | | National Kidney Disease Education Program. [...] | + + + + + | [facility] | [address] | [place] [address] | | | SERVICES, NATALEE | VILMA [...] Note | + + | Service Account, [employer] Res In Interface - 09/11/2017 6:22 PM [...] | + + + + + | [facility] | [address] | [place] [address] | | | SERVICES, CORE | [address] | | | + + + + + MAGNESIUM, PLASMA (09/11/2017 7:12 AM PDT) + +---------+ + + + | Component | Value | Ref Range | Performed | Pathologist | | | | | At | Signature | + +---------+ + + + | MAGNESIUM,P | 2.7 (H) | 1.6 - 2.6 mg/dL | [facility] | | | LASMA | | | [...] [facility] | [address] | [place] [address] | | | SERVICES, NATALEE | VILMA [...] | | | LABORATORY | | | NEW ZEALANDER | | | SERVICES, | | | [...] | + + + + + | [facility] | [address] | [place] [address] | | | NATALEE WORTHINGTON | VILMA [...] | + + + + + | [facility] | [address] | [place] [address] | | | SERVICES, CORE | VILMA [...] Note | + + | Service Account, RadiMusclePharm Res In Interface - 09/10/2017 2:08 PM [...] [facility] | | | | | [facility] | | | | + +---------+ [...] [facility] | [address] | [place] [address] | | | SERVICES, CORE | PARK [...] LABORATORY | [address] | [place] [address] | | | SERVICES, CORE | PARK [...] | + + + + + | [facility] | [address] | [place] [address] | | | SERVICES, CORE | VILMA [...] [facility] | [address] | [place] [address] | | | SERVICES, CORE | PARK [...] | | | LABORATORY | | | NEW ZEALANDER | | | SERVICES, | | | [...] the MDRD equation recommended by the | [facility] | | National Kidney Disease Education Program. [...] [facility] | [address] | [place] [address] | | | SERVICES, CORE | VILMA [...] [facility] | [address] | [place], [place] | | | CARDIOLOGY | [address] | [address] | | + + + + + [...] Note | + + | Service Account, [employer] Res In Interface - 09/10/2017 11:11 AM [...] [facility] | [address] | [place], [place] | | | [place]INT OF CARE | [facility] | [address] | | | TESTS | | | [...] [facility] | [address] | [place] [address] | | | ELIN, NATALEE | VILMA [...] [facility] | [address] | [place] [address] | | | SERVICES, CORE | PARK [...] | | | LABORATORY | | | NEW ZEALANDER | | | SERVICES, | | | [...] the MDRD equation recommended by the | [facility] | | National Kidney Disease Education Program. [...] | + + + + + | [facility] | [address] | [place] [address] | | | ELIN, NATALEE | VILMA [...] [facility] | [address] | [place] [address] | | | SERVICES, CORE | PARK [...] | | | LABORATORY | | | NEW ZEALANDER | | | SERVICES, | | | [...] the MDRD equation recommended by the | [facility] | | National Kidney Disease Education Program. [...] [facility] | [address] | [place] [address] | | | SERVICES, CORE | PARK [...] | + + + + + | [facility] | [address] [facility] | [place] [address] | | | SERVICES, CORE | PARK [...] + +---------+ + + + | BRET SHIPLEY | No Hemo | | [facility] | [...] [facility] | [address] | [place] [address] | | | SERVICES, CORE | [address] | | | + + + + + X-RAY ABD LTD FEEDING TUBE EVAL (09/08/2017 4:38 AM PDT) + + | Specimen | + + | | + + + + + | Narrative | Performed At | + + + | EXAM: ABD LTD FEEDING TUBE EVAL 09/08/17 04:04:50 COMPARISON: | [facility] | | 09/06/17 FINDINGS: Feeding tube has [...] [facility] | [address] | [place], [place] | | | CARDIOLOGY | [address] | [address] | | + + + + + [...] Note | + + | Service Account, RadiMusclePharm Res In Interface - 09/07/2017 10:46 AM [...] | + + + + + | [facility] | [address] | [place] [address] | | | NATALEE WORTHINGTON | PARK [...] | | | LABORATORY | | | NEW ZEALANDER | | | SERVICES, | | | [...] | + + + + + | [facility] | [address] | [place] [address] | | | SERVICES, CORE | VILMA [...] [facility] | [address] | [place] [address] | | | SERVICES, CORE | VILMA [...] Note | + + | Service Account, [employer] Res In Interface - 09/07/2017 10:46 AM [...] DEPT OF | [address] | [place], [place] | | | CARDIOLOGY | [address] | [address] | | + + + + + [...] | | | attempt. Midline lot number [id number]; there was positive blood | | | [...] | | | LABORATORY | | | NEW ZEALANDER | | | SERVICES, | | | [...] | + + + + + | [facility] | [address] | [place] [address] | | | SERVICES, CORE | PARK [...] | + + + + + | [facility] | [address] | [place] [address] | | | SERVICES, [facility] | [address] | | | + [...] Note | + + | Service Account, [employer] Res In Interface - 09/05/2017 10:16 AM [...] | + + + + + | [facility] | [address] | [place] [address] | | | SERVICES, CORE | VILMA [...] [facility] | [address] | [place] [address] | | | SERVICES, CORE | VILMA [...] | | | LABORATORY | | | NEW ZEALANDER | | | SERVICES, | | | [...] the MDRD equation recommended by the | [facility] | | National Kidney Disease Education Program. [...] [facility] | [address] | [place] [address] | | | SERVICES, CORE | PARK [...] | | | LABORATORY | | | NEW ZEALANDER | | | SERVICES, | | | [...] the MDRD equation recommended by the | [facility] | | National Kidney Disease Education Program. [...] | + + + + + | [facility] | [address] | [place] [address] | | | ELIN, NATALEE | VILMA [...] tomorrow morning. CB Henson Pager / ID: [phone] | | + + + CULTURE, SPUTUM [...] + | [facility] - | [address] | [place] [address] | | | [place] | | | [...] | + + + + + | [facility] | [address] | [place] [address] | | | SERVICES, CORE | VILMA [...] | [facility] | | | GRAVITY | [place] performed by | | LABORATORY | | [...] [facility] | [address] | [place] [address] | | | SERVICES, NATALEE | VILMA [...] [facility] | [address] | [place] [address] | | | SERVICES, NATALEE | [address] | | | + + + + + CULTURE, BLOOD BACTI & YEAST OHDANIELLE (09/04/2017 1:16 PM PDT) + + + [...] | | | | days. | | LEIN, | | | | | | CORE | | + + + + + + + + | Specimen | + + | Blood - Peripheral | | (qualifier value) | + + + + + + + | Performing | Address | City/State/Zipcode | Phone Number | | Organization | | | | + + + + + | [facility] | [address] | [place] [address] | | | SERVICES, CORE | VILMA [...] + + | [facility] | [address] | [place], [place] | | | CARDIOLOGY | [address] | [address] | | + + + + + [...] | RADIOLOGY VOICE | | above the iyfan. Left-sided chest tube and enteric tube remain [...] Note | + + | Service Account, Monitor My Meds In Interface - 09/04/2017 9:49 AM PDT [...] | | + +---------+ + + | [facility] | | | | | VOICE [...] [facility] | [address] | [place] [address] | | | SERVICES, CORE | PARK [...] [facility] | [address] | [place] [address] | | | SERVICES, CORE | PARK [...] | | | LABORATORY | | | NEW ZEALANDER | | | SERVICES, | | | [...] the MDRD equation recommended by the | [facility] | | National Kidney Disease Education Program. [...] + + | Performing | Address | City/State/[facility] Cent[facility]ode | Phone Number | | Organization | | | | + + + + + | [facility] | [address] | [place] [address] | | | ELIN, CORE | VILMA [...] | + + + + + | [facility] | [address] | [place] [address] | | | ELIN, NATALEE | VILMA [...] [facility] | [address] | [place], [place] | | | [place]ORIA GENAO OF CARE | [address] | [address] | | | TESTS | | | [...] - [facility] | [address] | [place], [place] | | | [place]INT OF CARE | [address] | [address] | | | TESTS | | | [...] + + + | [facility] | [address] | [place], [place] | | | [place] POINT OF CARE | [address] | [address] | | | TESTS | | | [...] [facility] | [address] | [place], [place] | | | [place]INT OF CARE | [address] | [address] | | | TESTS | | | [...] Note | + + | Service Account, [employer] Res In Interface - 09/03/2017 10:27 AM [...] [facility] | | | | | VASC [...] + | [facility] - | [address] | [place] [address] | | | [facility] | | | | [...] | + + + + + | [facility] | [address] [facility] | [place] [address] | | | SERVICES, CORE | VILMA [...] detected | AIRPORT - | | | [place] | + + + + + + + + | Performing | Address | City/State/Zipcode | Phone Number | | Organization | | | | + + + + + | [facility] | [address] | [place] [address] | | | [place] | | | | + + + [...] | + + + + + | [email or web address] | [address] | [place] [address] | | | SERVICES, CORE | VILMA [...] [facility] | [address] | [place] [address] | | | SERVICES, CORE | PARK [...] | | | LABORATORY | | | NEW ZEALANDER | | | SERVICES, | | | [...] the MDRD equation recommended by the | [facility] | | National Kidney Disease Education Program. [...] | + + + + + | [facility] | [address] | [place] [address] | | | SERVICES, CORE | PARK [...] [facility] | [address] | [place] [address] | | | SERVICES, NATALEE | [address] | | | + + + + + OPERATION RECORD (09/02/2017 6:53 PM PDT) + + | Procedure Note | + + | Fidelina Shields MD - 09/02/2017 6:53 PM PDT Date of Service: 09/02/2017 | | Attending Surgeon: Fidelina Shields MD Box Stapler(s): | | Ajay Garcia MD, resident. Preoperative [...] 09/02/2017 18:15:29DT: 09/02/2017 18:53:52Job #: | | [id number] to federal Medicare and Medicaid regulations I was present for | | the entire procedure.Fidelina Shields MDAssistant ProfessorDepartment of SurgeryOffice: | | [phone]: [id number] has been electronically signed by Fidelina Shields MD, | | 09/03/2017 at 9:11 AM. | | | | | |Fidelina Shields MD | |Statistical Consultant | |Department of Surgery | |Office: [phone] | |Pager: [phone] | | | |This has been electronically [...] [facility] | [address] | [place] [address] | | | SERVICES, CORE | PARK [...] | + + + + + | [facility] | [address] [facility] | [place] [address] | | | SERVICES, CORE | PARK [...] | + + + + + | [facility] - | [address] | [place] [address] | | | [place] | | | | + + + [...] | + + + + + | [facility] | [address] | [place] [address] | | | SERVICES, NATALEE | [address]IL[address] [...] | | | LABORATORY | | | NEW ZEALANDER | | | SERVICES, | | | [...] | + + + + + | [facility] | [address] | [place] [address] | | | SERVICES, CORE | VILMA [...] + + | Performing | Address | City/State/[facility] Centercode | Phone Number | | Organization | | | | + +---------+ + + | [facility] | | | | | VOICE [...] | | | contact: INGRID Garcia, Surgery [phone] Pursuant | | | to federal Medicare and Medicaid regulations I was present for the | | | entire procedure. Fidelina Shields MD Statistical Consultant | | | Department of Surgery Office: [phone] Pager: [phone] This has | | | been electronically [...] | + + + + + | [facility] | [address] | [place] [address] | | | SERVICES, CORE | VILMA [...] | + + + + + | [facility] | [address] | [place] [address] | | | NATALEE WORTHINGTON | [address] | | | + + + + + OPERATION RECORD (09/02/2017 6:51 AM PDT) + ---+ | Procedure Note | + ---+ | Fidelina Shields MD - 09/02/2017 6:51 AM PDT Date of Service: 09/01/2017 | | Attending Surgeon: Fidelina Shields MD Box Stapler(s): Haim Peralta MD. | | Ajay Garcia [...] 09/02/2017 06:17:53DT: 09/02/2017 | | 06:51:37Job #: [id number] to federal Medicare and Medicaid regulations I | | was present for the entire procedure.Fidelina Goodenistanbrice ProfessorDepartment of | | SurgeryOffice: [phone]: [id number] has been electronically signed by Fidelina Snyder | | MD Cornelius, 09/02/2017 at 10:40 AM. | | | | | |Pursuant to federal Medicare and Medicaid regulations I was present for the entire procedur e. | | | | | | | |Fidelina Shields MD | |Statistical Consultant | |Department of Surgery | |Office: [phone] | |Pager: [phone] | | | |This has been electronically [...] | + + + + + | [facility] | [address] | [place] [address] | | | SERVICES, CORE | PARK [...] (L) | 41.0 - 53.0 % | [facility] | | | | | | LABORATORY [...] | + + + + + | [facility] | [address] | [place] [address] | | | SERVICES, CORE | PARK [...] + + + + | PRODUCT | [id number] | | [facility] | | | UNIT [...] + + + + | EXPIRATION | [id number] | | [facility] | | | DATE [...] + + + + | BLOOD | [id number] | | [facility] | | | PRODUCT [...] | + + + + + | [facility] | [address] | [place] [address] | | | SERVICES, | [address] [...] [facility] | [address] | [place] [address] | | | SERVICES, CORE | PARK [...] | | | LABORATORY | | | NEW ZEALANDER | | | SERVICES, | | | [...] the MDRD equation recommended by the | [facility] | | National Kidney Disease Education Program. [...] | + + + + + | [facility] | [address] | [place] [address] | | | ELIN, NATALEE | [address] [...] | + + + + + | [facility] | [address] | [place] [address] | | | ELIN, NATALEE | [address] [...] | | | | INFORMATION: | | [place] | | | | [employer] | [...] (http://www.cdc.gov/mmwr | | | | | | /preview/mmwrhtml/cg2636 | | | | | | a1.htm), [...] [facility] - | | | | by [employer], | | AIRPORT - | | | | | | [place] | | | | [address] | | | | | | Rogel[address] Pick[address] [facility] | | | | | | [address] | | | | | | | | | | | | [email or web address] | | | | | | [...] + | [facility] - | [address] | [place] [address] | | | [place] | | | [...] + + + | [facility] | [address] | [place] [address] | | | SERVICES, CORE | VILMA [...] | + + + + + | [facility] | [address] | [place] [address] | | | SERVICES, [facility] | [address] | | | + [...] [facility] | [address] | [place] [address] | | | SERVICES, CORE | [address] [...] [facility] | [address] | [place] [address] | | | SERVICES, CORE | [address]ARK [...] + + + + | PRODUCT | [id number] | | [facility] | | | UNIT [...] + + + + | EXPIRATION | [id number] | | [facility] | | | DATE [...] + + + + | BLOOD | [id number] | | [facility] | | | PRODUCT [...] [facility] | [address] | [place] [address] | | | SERVICES, | [address] [...] [facility] | [address] | [place] [address] | | | SERVICES, CORE | VILMA [...] + + | [facility] | [address] [facility] | [place] [address] | | | SERVICES, CORE | PARK [...] [facility] | [address] | [place] [address] | | | SERVICES, CORE | PARK [...] | | | LABORATORY | | | NEW [place]EALANDER | | | SERVICES, | | | [...] | + + + + + | [facility] | [address] [facility] | [place] [address] | | | SERVICES, NATALEE | [address] [...] | + + + + + | [facility] | [address] | [place] [address] | | | SERVICES, CORE | VILMA [...] | + + + + + | [facility] | [address] | [place] [address] | | | SERVICES, [facility] | [address] | | | + [...] was exchanged for a B[employer]on wire. Under | | | fluoroscopic guidance, a 5 Fr flush catheter was used to evaluate the | | | distal abdominal aorta and pelvic vasculature. A wire and catheter | | | were then used to select the left common and internal iliac arteries | | | from the right HOT BOX OPERATOR approach. DSA was performed from the [...] MD, PhDIR Fellow: | | George Shah MDVS Fellow: Trey Thomas MDPreoperative diagnosis: pelvic trauma, [...] micropuncture access set was exchanged for a [employer] wire. Under fluoroscopic guidance, | | a 5 Fr flush catheter was used to evaluate the distal abdominal aorta and pelvic | | vasculature. A wire and catheter were then used to select the left common and internal | | iliac arteries from the right HOT BOX OPERATOR approach. DSA was performed from the [...] right common femoral artery. Using Seldinger technique, brice david micropuncture access set was exchanged for a [employer] wire. Under fluoroscopic guidance, a 5 Fr flush catheter was used | |to evaluate the distal abdominal aorta and pelvic vasculature. A wire and catheter were th en used to select the left common and internal iliac arteries from the right HOT BOX OPERATOR approach. DSA was performed from the [...] necessary, edited the report. I agree with brice david report as now presented. | + + [...] + + | SELENA PICKETT | [address] | [place], [place] | | | [place] [facility] | [address] | [id number] | | | TESTS | | | | + + + + + EXPLORATORY LAPAROTOMY (09/01/2017 12:31 PM PDT) + + + | Narrative | Performed At | + + + | Fidelina Shields MD 09/01/2017 12:42 PM BRIEF OPERATIVE NOTE: | | | Date: 09/01/2017 Author: Fidelina Shields MD | | | Attending Physician: Fidelina Shields MD Box Stapler(s): Haim Peralta | | | , Vicente Garcia MD, [facility] MS3 Prior to the | | [...] case. | | | Fidelina Shields MD Statistical Consultant Division of Trauma, | | | Critical Care and Acute Care Surgery Office: [phone] Pager: | | | [phone] | | + + + ABG-FULL ABL, [...] [facility] | [address] | [place], [place] | | | GLORIA GENAO OF CARE | [address] | [address] | | | TESTS | | | [...] + + + | exploratory laparotomy | [facility] | | | LABORATORY | | | NATALEE WORTHINGTON | + + + + + + + + | Performing | Address | City/State/Zipcode | Phone Number | | Organization | | | | + + + + + | [facility] | [address] | [place] [address] | | | NATALEE WORTHINGTON | [address] [...] + + + | [facility] | [address] | [place], [place] | | | GLORIA GENAO OF CARE | [address] | [address] | | | TESTS | | | [...] + + + + | PRODUCT | [id number] | | [facility] | | | UNIT [...] + + + + | EXPIRATION | [id number] | | [facility] | | | DATE [...] + + + + | BLOOD | [id number] | | [facility] | | | PRODUCT [...] | + + + + + | [facility] | [address] | [place] [address] | | | SERVICES, | [address] [...] + + + + | PRODUCT | [id number] | | [facility] | | | UNIT [...] + + + + | EXPIRATION | [id number] | | [facility] | | | DATE [...] + + + + | BLOOD | [id number] | | [facility] | | | PRODUCT [...] | + + + + + | [facility] | [address] | [place] [address] | | | SERVICES, | [address] [...] + + + + | PRODUCT | [id number] | | [facility] | | | UNIT [...] + + + + | EXPIRATION | [id number] | | [facility] | | | DATE [...] + + + + | BLOOD | [id number] | | [facility] | | | PRODUCT [...] [facility] | [address] | [place] [address] | | | SERVICES, | [address] [...] + + + + | PRODUCT | [id number] | | [facility] | | | UNIT [...] + + + + | EXPIRATION | [id number] | | [facility] | | | DATE [...] + + + + | BLOOD | [id number] | | [facility] | | | PRODUCT [...] [facility] | [address] | [place] [address] | | | SERVICES, | [address] [...] + + + + | PRODUCT | [id number] | | [facility] | | | UNIT [...] + + + + | EXPIRATION | [id number] | | [facility] | | | DATE [...] + + + + | BLOOD | [id number] | | [facility] | | | PRODUCT [...] [facility] | [address] | [place] [address] | | | SERVICES, | [address] [...] + + + + | PRODUCT | [id number] | | [facility] | | | UNIT [...] + + + + | EXPIRATION | [id number] | | [facility] | | | DATE [...] + + + + | BLOOD | [id number] | | [facility] | | | PRODUCT [...] [facility] | [address] | [place] [address] | | | SERVICES, | [address] [...] + + + + | PRODUCT | [id number] | | [facility] | | | UNIT [...] + + + + | EXPIRATION | [id number] | | [facility] | | | DATE [...] + + + + | BLOOD | [id number] | | [facility] | | | PRODUCT [...] LAB[facility]ATORY | [address] | [place] [address] | | | SERVICES, | [address] [...] + + + + | PRODUCT | [id number] | | [facility] | | | UNIT [...] + + + + | EXPIRATION | [id number] | | [facility] | | | DATE [...] + + + + | BLOOD | [id number] | | [facility] | | | PRODUCT [...] [facility] | [address] | [place] [address] | | | SERVICES, | [address] [...] + + + + | PRODUCT | [id number] | | [facility] | | | UNIT [...] + + + + | EXPIRATION | [id number] | | [facility] | | | DATE [...] + + + + | BLOOD | [id number] | | [facility] | | | PRODUCT [...] | + + + + + | [facility] | [address] | [place] [address] | | | SERVICES, | [address] [...] + + + + | PRODUCT | [id number] | | [facility] | | | UNIT [...] + + + + | EXPIRATION | [id number] | | [facility] | | | DATE [...] + + + + | BLOOD | [id number] | | [facility] | | | PRODUCT [...] | + + + + + | [email or web address] | [address] | [place] [address] | | | SERVICES, | [address] [...] + + + + | PRODUCT | [id number] | | [facility] | | | UNIT [...] + + + + | EXPIRATION | [id number] | | [facility] | | | DATE [...] + + + + | BLOOD | [id number] | | [facility] | | | PRODUCT [...] | + + + + + | [facility] | [address] | [place] [address] | | | SERVICES, | [address] [...] + + + + | PRODUCT | [id number] | | [facility] | | | UNIT [...] + + + + | EXPIRATION | [id number] | | [facility] | | | DATE [...] + + + + | BLOOD | [id number] | | [facility] | | | PRODUCT [...] | + + + + + | [facility] | [address] | [place] [address] | | | SERVICES, | [address] [...] + + + + | PRODUCT | [id number] | | [facility] | | | UNIT [...] + + + + | EXPIRATION | [id number] | | [facility] | | | DATE [...] + + + + | BLOOD | [id number] | | [facility] | | | PRODUCT [...] [facility] | [address] | [place] [address] | | | SERVICES, | [address] [...] + + + + | PRODUCT | [id number] | | [facility] | | | UNIT [...] + + + + | EXPIRATION | [id number] | | [facility] | | | DATE [...] + + + + | BLOOD | [id number] | | [facility] | | | PRODUCT [...] [facility] | [address] | [place] [address] | | | SERVICES, | [address] [...] + + + + | PRODUCT | [id number] | | [facility] | | | UNIT [...] + + + + | EXPIRATION | [id number] | | [facility] | | | DATE [...] + + + + | BLOOD | [id number] | | [facility] | | | PRODUCT [...] [facility] | [address] | [place] [address] | | | SERVICES, | [address] [...] + + + + | PRODUCT | [id number] | | [facility] | | | UNIT [...] + + + + | EXPIRATION | [id number] | | [facility] | | | DATE [...] + + + + | BLOOD | [id number] | | [facility] | | | PRODUCT [...] [facility] | [address] | [place] [address] | | | SERVICES, | [address] [...] + + + + | PRODUCT | [id number] | | [facility] | | | UNIT [...] + + + + | EXPIRATION | [id number] | | [facility] | | | DATE [...] + + + + | BLOOD | [id number] | | [facility] | | | PRODUCT [...] [facility] | [address] | [place] [address] | | | SERVICES, | [address] [...] + + + + | PRODUCT | [id number] | | [facility] | | | UNIT [...] + + + + | EXPIRATION | [id number] | | [facility] | | | DATE [...] + + + + | BLOOD | [id number] | | [facility] | | | PRODUCT [...] [facility] | [address] | [place] [address] | | | SERVICES, | [address] [...] + + + + | PRODUCT | [id number] | | [facility] | | | UNIT [...] + + + + | EXPIRATION | [id number] | | [facility] | | | DATE [...] + + + + | BLOOD | [id number] | | [facility] | | | PRODUCT [...] [facility] | [address] | [place] [address] | | | SERVICES, | [address] [...] + + + + | PRODUCT | [id number] | | [facility] | | | UNIT [...] + + + + | EXPIRATION | [id number] | | [facility] | | | DATE [...] + + + + | BLOOD | [id number] | | [facility] | | | PRODUCT [...] [facility]AT[facility] | [address] | [place] [address] | | | SERVICES, | [address] [...] + + + + | PRODUCT | [id number] | | [facility] | | | UNIT [...] + + + + | EXPIRATION | [id number] | | [facility] | | | DATE [...] + + + + | BLOOD | [id number] | | [facility] | | | PRODUCT [...] | + + + + + | [facility] | [address] | [place] [address] | | | SERVICES, | [address] [...] + + + + | PRODUCT | [id number] | | [facility] | | | UNIT [...] + + + + | EXPIRATION | [id number] | | [facility] | | | DATE [...] + + + + | BLOOD | [id number] | | [facility] | | | PRODUCT [...] | + + + + + | [facility] | [address] | [place] [address] | | | SERVICES, | [address] [...] + + + + | PRODUCT | [id number] | | [facility] | | | UNIT [...] + + + + | EXPIRATION | [id number] | | [facility] | | | DATE [...] + + + + | BLOOD | [id number] | | [facility] | | | PRODUCT [...] | + + + + + | [facility] | [address] | [place] [address] | | | SERVICES, | [address] [...] + + + + | PRODUCT | [id number] | | [facility] | | | UNIT [...] + + + + | EXPIRATION | [id number] | | [facility] | | | DATE [...] + + + + | BLOOD | [id number] | | [facility] | | | PRODUCT [...] | + + + + + | [facility] | [address] | [place] [address] | | | SERVICES, | [address] [...] + + + + | PRODUCT | [id number] | | [facility] | | | UNIT [...] + + + + | EXPIRATION | [id number] | | [facility] | | | DATE [...] + + + + | BLOOD | [id number] | | [facility] | | | PRODUCT [...] [facility] | [address] | [place] [address] | | | SERVICES, | [address] [...] + + + + | PRODUCT | [id number] | | [facility] | | | UNIT [...] + + + + | EXPIRATION | [id number] | | [facility] | | | DATE [...] + + + + | BLOOD | [id number] | | [facility] | | | PRODUCT [...] [facility] | [address] | [place] [address] | | | SERVICES, | [address] [...] | + + + + + | [facility] | [address] | [place] [address] | | | SERVICES, CORE | [address] [...] | | | LABORATORY | | | [facility] | | | SERVICES, | | | [...] [facility] | [address] | [place] [address] | | | SERVICES, CORE | P[address] [...] | + + + + + | [facility] | [address] | [place] [address] | | | SERVICES, CORE | [address] [...] | | POC | | | GLORIA GEANO | | [...] + + + + | [facility] | [address] | [place], [place] | | | [place] [facility] | [address] | [address] | | | TESTS | | | [...] Service Account, Kostas Casper In Interface - 09/02/2017 1:23 PM PDT [...] Note | + + | Service Account, Monitor My Meds In Interface - 09/01/2017 1:40 PM PDT [...] + + + + | PRODUCT | [id number] | | [facility] | | | UNIT [...] + + + + | EXPIRATION | [id number] | | [facility] | | | DATE [...] + + + + | BLOOD | [id number] | | [facility] | | | PRODUCT [...] | + + + + + | [facility] | [address] | [place] [address] | | | SERVICES, | [address] | | | | TRANSFUSION MEDICINE [...] + + + + | PRODUCT | [id number] | | [facility] | | | UNIT [...] + + + + | EXPIRATION | [id number] | | [facility] | | | DATE [...] + + + + | BLOOD | [id number] | | [facility] | | | PRODUCT [...] [facility] | [address] | [place] [address] | | | SERVICES, | [address] [...] + + + + | PRODUCT | [id number] | | [facility] | | | UNIT [...] + + + + | EXPIRATION | [id number] | | [facility] | | | DATE [...] + + + + | BLOOD | [id number] | | [facility] | | | PRODUCT [...] [facility] | [address] | [place] [address] | | | SERVICES, | [address] [...] + + + + | PRODUCT | [id number] | | [facility] | | | UNIT [...] + + + + | EXPIRATION | [id number] | | [facility] | | | DATE [...] + + + + | BLOOD | [id number] | | [facility] | | | PRODUCT [...] [facility] | [address] | [place] [address] | | | SERVICES, | [address] [...] + + + + | PRODUCT | [id number] | | [facility] | | | UNIT [...] + + + + | EXPIRATION | [id number] | | [facility] | | | DATE [...] + + + + | BLOOD | [id number] | | [facility] | | | PRODUCT [...] [facility] | [address] | [place] [address] | | | SERVICES, | [address] [...] + + + + | PRODUCT | [id number] | | [facility] | | | UNIT [...] + + + + | EXPIRATION | [id number] | | [facility] | | | DATE [...] + + + + | BLOOD | [id number] | | [facility] | | | PRODUCT [...] [facility] | [address] | [place] [address] | | | SERVICES, | [address] [...] + + + + | PRODUCT | [id number] | | [facility] | | | UNIT [...] + + + + | EXPIRATION | [id number] | | [facility] | | | DATE [...] + + + + | BLOOD | [id number] | | [facility] | | | PRODUCT [...] [facility] | [address] | [place] [address] | | | SERVICES, | [address] [...] + + + + | PRODUCT | [id number] | | [facility] | | | UNIT [...] + + + + | EXPIRATION | [id number] | | [facility] | | | DATE [...] + + + + | BLOOD | [id number] | | [facility] | | | PRODUCT [...] | + + + + + | [facility] | [address] | [place] [address] | | | ELIN, | [address] [...] Service Account, Kostas Res In Interface - 09/01/2017 9:01 AM [...] + + + + | PRODUCT | [id number] | | [facility] | | | UNIT [...] + + + + | EXPIRATION | [id number] | | [facility] | | | DATE [...] + + + + | BLOOD | [id number] | | [facility] | | | PRODUCT [...] | + + + + + | [facility] | [address] | [place] [address] | | | SERVICES, | [address] [...] | + + + + + | [facility] | [address] | [place] [address] | | | SERVICES, CORE | PARK [...] | + + + + + | [facility] | [address] | [place] [address] | | | SERVICES, CORE | [address] [...] Discussed with | | | trauma ICU cad intern by Dr. Yang at 4:38 AM. [...] interspinous ligament is injured.Discussed with trauma ICU cad intern | | by Dr. Yang at 4:38 AM.I have personally reviewed the images and, if necessary, | | edited the report. I agree with the report as now presented. | |3. Extensive soft tissue edema extending into the cervical and upper thoracic interspinous space, suggestive of interspinous ligament is injured. | | | |Discussed with trauma ICU cad intern by Dr. Yang at 4:38 AM. [...] | | | LABORATORY | | | [place] [facility] | | | SERVICES, | | | [...] the MDRD equation recommended by the | [facility] | | National Kidney Disease Education Program. [...] | + + + + + | [facility] | [address] | [place] [address] | | | SERVICES, CORE | PARK [...] [facility] | [address] | [place] [address] | | | ELIN, NATALEE | [address] [...] [facility] | [address] | [place] [address] | | | SERVICES, CORE | PARK [...] | + + + + + | [facility] | [address] | [place] [address] | | | SERVICES, CORE | [address] | | | + + [...] pleural spaced was performed. A 32 size Bahraini chest tube was | | | placed [...] | ventricles. Discussed with the trauma ICU cad intern at 12:12 AM by | | [...] ventricles.Discussed with | | the trauma ICU cad intern at 12:[address] Yang.I [...] | | |Discussed with the trauma ICU cad intern at 12:[address] Yang. [...] [facility] | [address] | [place], [place] | | | [facility] | [address] | [address] | | | TESTS | | | [...] | + + + + + | [facility] | [address] | [place] [address] | | | SERVICES, NATALEE | [address] [...] 4.0 | LABORATORY | | mmol/L | ELIN, NATALEE | + + + + + + + + | Performing | Address | City/State/Zipcode | Phone Number | | Organization | | | | + + + + + | [facility] | [address] | [place] [address] | | | NATALEE WORTHINGTON | [address] [...] Note | + + | Service Account, Monitor My Meds In Interface - 09/01/2017 1:50 PM PDT [...] Note | + + | Service Account, Monitor My Meds In Interface - 09/01/2017 1:40 PM PDT [...] Note | + + | Service Account, [employer] Res In Interface - 09/01/2017 1:50 PM [...] Note | + + | Service Account, [employer] Res In Interface - 09/01/2017 1:50 PM [...] [facility] | [address] | [place] [address] | | | SERVICES, CORE | [address] | | | + + + + + X-RAY PORTABLE CHEST 1 VIEW (08/31/2017 7:07 PM PDT) + + | Specimen | + + | | + + + + + | Narrative | Performed At | + + + | STUDY: RI CHEST 1 VIEW HISTORY: Trauma COMPARISON: CT CAP | [facility] | | 08/31/2017 FINDINGS: Endotracheal tube with [...] Note | + + | Service Account, [employer] Res In Interface - 09/01/2017 1:44 PM [...] | + + + + + | [facility] | [address] | [place] [address] | | | SERVICES, NATALEE | [address] | | | + + + + + CTA NECK W CONTRAST (08/31/2017 6:27 PM PDT) + + | Specimen | + + | | + + + + + | Narrative | Performed At | + + + | EXAM: CTA neck HISTORY: Trauma COMPARISON: None | [facility] | | TECHNIQUE: CT angiogram of the [...] Adal, Radiant Res In Interface - 09/01/2017 10:12 [...] rib, nondisplaced-Left | | 1st rib fracture, gwvwhacdcvkb-Hoo-dralkwsxp left lateral 8th rib fracture-T12 fracture | [...] | + + + + + | [facility] | [address] | [place] [address] | | | SERVICES, | [address] [...] [facility] | [address] | [place] [address] | | | SERVICES, | [address] [...] | + + + + + | [facility] | [address] | [place] [address] | | | SERVICES, | [address] [...] normal. Depressed MA corresponds to decreased | [facility] | | clot strength suggesting HYPOcoagulability. Consider [...] [facility] | [address] | [place], [place] | | | [facility] | [address] | [address] | | | TESTS | | | [...] [facility] | [address] | [place], [place] | | | GL[facility]IA GE[facility] | [address] | [address] | | | TESTS | | | | + + + + + CHEM 8 W/H&HCITLALY (08/31/2017 5:31 PM PDT) + + + [...] [facility] | [address] | [place], [place] | | | GLORIA GENAO [facility] | [address] | [address] | | | TESTS | | | [...] | | | TC02 | | | [facility] | | | [...] | | | | | | [place], GLORIA | | | | | | OF [...] [facility] | [address] | [place], [place] | | | [facility] | [address] | [address] | | | TESTS | | | [...] + + + + | PRODUCT | [id number] | | [facility] | | | UNIT [...] + + + + | EXPIRATION | [id number] | | [facility] | | | DATE [...] + + + + | BLOOD | [id number] | | [facility] | | | PRODUCT [...] [facility] | [address] | [place] [address] | | | SERVICES, | [address] [...] + + + + | PRODUCT | [id number] | | [facility] | | | UNIT [...] + + + + | EXPIRATION | [id number] | | [facility] | | | DATE [...] + + + + | BLOOD | [id number] | | [facility] | | | PRODUCT [...] [facility] | [address] | [place] [address] | | | SERVICES, | [address] [...] + + + + | PRODUCT | [id number] | | [facility] | | | UNIT [...] + + + + | EXPIRATION | [id number] | | [facility] | | | DATE [...] + + + + | BLOOD | [id number] | | [facility] | | | PRODUCT [...] [facility] | [address] | [place] [address] | | | SERVICES, | [address] [...] + + + + | PRODUCT | [id number] | | [facility] | | | UNIT [...] + + + + | EXPIRATION | [id number] | | [facility] | | | DATE [...] + + + + | BLOOD | [id number] | | [facility] | | | PRODUCT [...] [facility] | [address] | [place] [address] | | | SERVICES, | [address] [...] + + + + | PRODUCT | [id number] | | [facility] | | | UNIT [...] + + + + | EXPIRATION | [id number] | | [facility] | | | DATE [...] + + + + | BLOOD | [id number] | | [facility] | | | PRODUCT [...] LAB[facility]ATORY | [address] | [place] [address] | | | SERVICES, | [address] [...] + + + + | PRODUCT | [id number] | | [facility] | | | UNIT [...] + + + + | EXPIRATION | [id number] | | [facility] | | | DATE [...] + + + + | BLOOD | [id number] | | [facility] | | | PRODUCT [...] [facility] | [address] | [place] [address] | | | SERVICES, | [address] [...] + + + + | PRODUCT | [id number] | | [facility] | | | UNIT [...] + + + + | EXPIRATION | [id number] | | [facility] | | | DATE [...] + + + + | BLOOD | [id number] | | [facility] | | | PRODUCT [...] | + + + + + | [facility] | [address] | [place] [address] | | | SERVICES, | [address] [...] + + + + | PRODUCT | [id number] | | [facility] | | | UNIT [...] + + + + | EXPIRATION | [id number] | | [facility] | | | DATE [...] + + + + | BLOOD | [id number] | | [facility] | | | PRODUCT [...] | + + + + + | [facility] | [address] | [place] [address] | | | SERVICES, | [address] [...] [facility] | [address] | [place] [address] | | | SERVICES, CORE | PARK [...] | | | LABORATORY | | | [place] | | | SERVICES, | | | [...] the MDRD equation recommended by the | [facility] | | National Kidney Disease Education Program. [...] | + + + + + | [facility] | [address] [facility] | [place] [address] | | | SERVICES, CORE | PARK [...] | + + + + + | [facility] | [address] | [place] [address] | | | SERVICES, CORE | VILMA [...] [facility] | [address] | [place] [address] | | | NATALEE WORTHINGTON | PARK [...] | + + + + + | [facility] | [address] | [place] [address] | | | SERVICES, CORE | [address] | | | + + + + + MAGNESIUM, PLASMA (08/31/2017 4:50 PM PDT) + +---------+ + + + | Component | Value | Ref Range | Performed | Pathologist | | | | | At | Signature | + +---------+ + + + | MAGNESIUM,P | 1.5 (L) | 1.6 - 2.6 mg/dL | [facility] | | | L[facility]MA | | | [...] [facility] | [address] | [place] [address] | | | NATALEE WORTHINGTON | [address] [...] EVENING, First dose on Sat | | PM PDT | | [...] | | | 12/02/17 at 1507, Until 12/06/17 | | | | | [...] | | | | Until Sat12/06/17 at 2051, 1st | | | | | | [...] | | | | | modification) on Sat11/07/17 at | | | | | | [...]
--- OUTSIDE RECORDS SUMMARY | ~2019-04-04 | XMS | Encounter Summary ---
Demographics + + + | Address | [address] | | | [place] [address] | + + + | Home Phone [...] Author + + + | Author | [facility] [employer] [facility] | + + + | Organization | [facility] [employer] [facility] | + + + | Address | Unknown | + + + | Phone | Unavailable | + + + Support + + +---------+ + | Name | Relationship | Address | Phone | + + +---------+ + | Kaylie Baig | ECON | Unknown | | + + +---------+ + Care Team Providers + +------+ + | Care Shop Router Name | Role | Phone | + [...] CENTER | | | | | | [address] | | | | | | [place]ov[place] Mailcode: | | | | | | [address] [facility] | | | | | | [place], [place] | | | | | | [address] | | | | | | [phone] | | | +--------+ + + + [...]
--- OUTSIDE RECORDS SUMMARY | ~2019-04-04 | XMS | Encounter Summary ---
Demographics + + + | Address | [address] | | | [place] [address] | + + + | Home Phone | | + + + | Preferred Language | Unknown | + + + | Marital Status | Single | + + + | Faith Affiliation | PEN | + + + | Race | or | + + + | Ethnic Group | Not or | + + + Author + + + | Author | [facility] [employer] [facility] | + + + | Organization | [facility] [employer] [facility] | + + + | Address | Unknown | + + + | Phone | Unavailable | + + + Support + + +---------+ + | Name | Relationship | Address | Phone | + + +---------+ + | Kaylie Baig | ECON | Unknown | | + + +---------+ + Care Team Providers + +------+ + | Care Executive Relations Specialist Name | Role | Phone | [...] | | 2018 | Pass | [facility] | | | | | | Admitting Desk | | | | | | Located on the [address]th | | | | | | floor [address] | | | | | | [address] | | | | | | [place], [place] | | | | | | [address] | | | +--------+ + + + [...]
--- OUTSIDE RECORDS SUMMARY | ~2019-04-04 | XMS | Encounter Summary ---
Demographics + + + | Address | [address] | | | [place] [address] | + + + | Home Phone | | + + + | Preferred Language | Unknown | + + + | Marital Status | Single | + + + | Pentecostalism Affiliation | PEN | + + + | Race | or | + + + | Ethnic Group | Not or | + + + Author + + + | Author | [facility] [employer] [facility] | + + + | Organization | [facility] [employer] [facility] | + + + | Address | Unknown | + + + | Phone | Unavailable | + + + Support + + +---------+ + | Name | Relationship | Address | Phone | + + +---------+ + | Kaylie Baig | ECON | Unknown | | + + +---------+ + Care Team Providers + +------+ + | Care Ethnoarchaeologist Name | Role | Phone | + [...] 10/12/ | Anesthesia | 6A Intra Op [facility] | Mick Leigh, | | | 2018 | Event | [facility] | MD [address] | | | | | Admitting Desk | [address] | | | | | Located on the 9 | [place], [place] | | | | | floor [address] | [address] | | | | | [address] | [phone] | | | | | [place], [place] | | | | | | [address] | Jennifer Henderson CRNA | | | | | | [address] | | | | | | [place] [facility] | | | | | | [place] [address] | | | | | | [phone] | | | | | | | [...] centrally accessed); | | | | | [id number]; 10/22/17; 1542; | | | | | [...] 1733 by | | g Tube | ([facility] low profile g-tube 18 fr [...] by | 10/12/171731 by | | | (jackson 19fr channel drain); | Valeria Seth RN [...] | | | | | 10/12/17 at 1451, Until Sat | | | | | | | 10/12/17 at 1855 | | | | | | + +-------+ +--------+---+---+ +---+---+ | | | +---+---+ documented in this encounter"
--- OUTSIDE RECORDS SUMMARY | ~2019-04-04 | XMS | Encounter Summary ---
Demographics + + + | Address | [address] | | | [place] [address] | + + + | Home Phone [...] Author + + + | Author | [facility] [employer] [facility] | + + + | Organization | [facility] [employer] [facility] | + + + | Address | Unknown | + + + | Phone | Unavailable | + + + Support + + +---------+ + | Name | Relationship | Address | Phone | + + +---------+ + | Kaylie Baig | ECON | Unknown | | + + +---------+ + Care Team Providers + +------+ + | Care Jockey Valet Name | Role | Phone | + +------+ + | No Pcp Per Patient | PCP | Unavailable | + +------+ + Encounter Details +--------+ + + + + | Date | Type | Department | Care Team | Description | +--------+ + + + + | 09/02/ | Procedure | 6A Intra Op [facility] | | | | 2018 | Pass | [facility] | | | | | | Admitting Desk | | | | | | Located on the 9th | | | | | | floor [address] [facility] | | | | | | [address] | | | | | | [place], [place] | | | | | | [address] | | | +--------+ + + + [...]
--- OUTSIDE RECORDS SUMMARY | ~2019-04-04 | XMS | Encounter Summary ---
Demographics + + + | Address | [address] | | | [place] [address] | + + + | Home Phone [...] Author + + + | Author | [facility] | + + + | Organization | [facility] [employer] [facility] | + [...] Team Providers + +------+ + | Care Rest Room Matron Name | Role | Phone | + +------+ + | No Pcp Per Patient | PCP | Unavailable | + +------+ + Encounter Details +--------+ + + + + | Date | Type | Department | Care Team | Description | +--------+ + + + + | 09/24/ | Procedure | Diagnostic Imaging | | | | 2017 | Pass | Services at [facility] | | | | | | [address] | | | | | | [place] Mailcode: | | | | | | [address] | | | | | | [facility] | | | | | | [place], [place] | | | | | | [address] | | | | | | [phone] | | | +--------+ + + + [...]
--- OUTSIDE RECORDS SUMMARY | ~2019-04-04 | XMS | Encounter Summary ---
Demographics + + + | Address | [address] | | | [place] [address] | + + + | Home Phone [...] Author | [facility] [employer] [facility] | + + + | Organization | [facility] [employer] [facility] | + + + | Address | Unknown | + + + | Phone | Unavailable | + + + Support + + +---------+ + | Name | Relationship | Address | Phone | + + +---------+ + | Kaylie Baig | ECON | Unknown | | + + +---------+ + Care Team Providers + +------+ + | Care Straightening Roll Operator Name | Role | Phone | [...] CENTER | | | | | | [address] | | | | | | [place] Mailcode: | | | | | | [address] [facility] | | | | | | [place], [place] | | | | | | [address] | | | | | | [phone] | | | +--------+ + + + [...]
--- OUTSIDE RECORDS SUMMARY | ~2019-04-04 | XMS | Encounter Summary ---
Demographics + + + | Address | [address] | | | [place] [address] | + + + | Home Phone [...] + + + | Author | [facility] | + + + | Organization | [facility] | + + + | Address | Unknown | + + + | Phone | Unavailable | + + + Support + + +---------+ + | Name | Relationship | Address | Phone | + + +---------+ + | Kaylie Baig | ECON | Unknown | | + + +---------+ + Care Team Providers + +------+ + | Care Network Contractor Name | Role | Phone | + [...] | 2018 | Pass | [facility] | | | | | | Admitting Desk | | | | | | Located on the 9th | | | | | | floor [address] [facility] | | | | | | [address] | | | | | | [place], [place] | | | | | | [address] | | | +--------+ + + + [...]
--- OUTSIDE RECORDS SUMMARY | ~2019-04-04 | XMS | Clinical Summary ---
Demographics + + + | Address | [address] | | | [place] [address] | + + + | Home Phone [...] Team Providers + +------+ + | Care Band Manager Name | Role | Phone | + +------+ + | No Pcp Per Patient | PCP | Unavailable | + +------+ + Source Comments SELENA is fully live on both [facility] Ambulatory and [facility] InPatient.[facility] Allergies No Known Allergies Medications + + [...] | / | | MD Magdiel at [facility] | | | | | | /[id number] | | REV LOC | | | | | | 43 | + +------+--------+ +--------+--------+--------+ + + | Description:151mm x 125mm | | FT/Right-Ster | + + + +---+--------+ +---+---+--------+ | Screw Bone 4mm 1.55mm 2.55mm | | Right: | [facility] | | | 04.503 | | Matrixneuro | | Head | | | | .104.0 | | Craniomaxillofacial Titanium | | | | | | 5 / / | | Self Drill Nonsterile - | | | | | | | | [id number]: Qty: 11 | | | | | | | | on 11/05/2017 by Dayami, | | | | | | | | MD Magdiel at [facility] | | | | | | | [...] | | | | | | | [id number]: Qty: | | | | | | | | 1Explanted: Qty: 1 on | | | | | | | | 11/05/2017 at [facility] | | | | | | | [...] | | | + +--------+ +--------+-------+---------+--------+ | ARTIST REPRESENTATIVE MEDICAID | ARTIST REPRESENTATIVE | [id number] | 08/28/19 | | | [...] Person | Self | [birth year] | | [address] | | | al/Fam | | 3 | [phone] | [place] [address] | | | taras | | | 6 (Home) | | + +--------+ +--------+ + + | [place] [employer] | Third | Self | [birth year] | | [address] | | | Libertarian | | [phone] | [phone] | [place] [address] | | | Liabil | | | [...]
--- OUTSIDE RECORDS SUMMARY | ~2019-04-04 | XMS | Encounter Summary ---
Demographics + + + | Address | [address] | | | [place] [address] | + + + | Home Phone | | + + + | Preferred Language | Unknown | + + + | Marital Status | Single | + + + | Jewish Affiliation | PEN | + + + | Race | or | + + + | Ethnic Group | Not or | + + + Author + + + | Author | [facility] | + + + | Organization | [facility] [employer] [facility] | [...] Team Providers + +------+ + | Care Formula Bottler Name | Role | Phone | + [...] + + + + | 09/15/ | Panel Flow Machine Operator | Neurosurgery at | Dallin Bourgeois, | Other closed | | 2018 | | [facility] [address] | MD [address] | nondisplaced | | | | Ave Mailcode: CH[address]N | [address] | fracture of seventh | | | | [place] for [facility] | [facility] [place] | cervical vertebra | | | | and Healing, | [address] | with routine | | | | Building , | [phone] | healing, subsequent | | | | Floor [place], [place] | | encounter (Primary | | | | [address] | | Dx) | | | | [phone] | | | +--------+ + + + [...]
--- OUTSIDE RECORDS SUMMARY | ~2019-04-04 | XMS | Encounter Summary ---
Demographics + + + | Address | [address] | | | [place] [address] | + + + | Home Phone [...] + + | Author | [facility] [employer] [facility] | + + + | Organization | [facility] [address] [employer] [facility] | + + + | Address | Unknown | + + + | Phone | Unavailable | + + + Support + + +---------+ + | Name | Relationship | Address | Phone | + + +---------+ + | Kaylie Baig | ECON | Unknown | | + + +---------+ + Care Team Providers + +------+ + | Care Mechanical Facilities Technician Name | Role | Phone | [...] | | | 2018 | Pass | [facility] | | | | | | Admitting Desk | | | | | | Located on the 9th | | | | | | floor [address] [facility] | | | | | | [address] | | | | | | [place], [place] | | | | | | [address] | | | +--------+ + + + [...]
--- OUTSIDE RECORDS SUMMARY | ~2019-04-04 | XMS | Encounter Summary ---
Demographics + + + | Address | [address] | | | [place] [address] | + + + | Home Phone [...] + | Author | [facility] [facility] | + + + | Organization | [facility] [employer] [facility] | + + + | Address | Unknown | + + + | Phone | Unavailable | + + + Support + + +---------+ + | Name | Relationship | Address | Phone | + + +---------+ + | Kaylie Baig | ECON | Unknown | | + + +---------+ + Care Team Providers + +------+ + | Care Staffing Consultant Name | Role | Phone | + [...] OF RECENT | | 2018 | | [facility] | MD [address] | LAPAROTOMY, CONTROL | | | | Admitting Desk | [address] | OF SPLENIC | | | | Located on the | [place], [place] | HEMMORHAGE | | | | floor [address] | [address] | | | | | [address] | [phone] | | | | | [place], [place] | | | | | | [address] | | | +--------+---------+ + + + [...] might be d ifferent from the original. [facility] Discharge Summary Discharging [...] for aspiration # nutrition - NPO, DIRECTOR OF EMPLOYER SERVICES evaluating patient when out of c collar [...] - Neurosurgery following peripherally - Must wear STORAGE ADMINISTRATOR when OOB, ok for C-collar only when in bed - 12 week collar period up on 11/23, Neurosurgery documented C collar/STORAGE ADMINISTRATOR weaning protocol o gloria next 5 weeks- [...] He will need home health PT/ OT/DIRECTOR OF EMPLOYER SERVICES, which will not be arranged until next [...] required Recommended rehabilitation therapies: Home health PT/OT/DIRECTOR OF EMPLOYER SERVICES Discharge Medications: Medication List START taking these [...] health follow up in your [facility] for follow up in 2-4 [...] that I, or Nurse Practitioner or Physician Bottle Line Worker working with me, had a face to face encounter with this patient on 12/06/2017 On behalf of Attending Physician: Chaz Munoz MD I am ordering and certify that the following services are medically necessary home [facility] Physical Therapy Evaluate and Treat I am ordering and certify that the following services are medically necessary home health [facility] Occupational Therapy Evaluate and Treat I am ordering and certify that the following services are medically necessary home [facility] Speech Language Pathology Evaluate and Treat I am ordering and certify that the following services are medically necessary home health [facility] Health SWITCHBOARD WIRE WORKER HELPER Evaluate and Treat I certify that the patient is homebound based on the following clinical findings Post-hospi rakesh weakness, decreased strength and endurance, and tires easily with minimal exertion Follow Up: Schedule the following appointment(s) when you get home Call [facility] TRAUMA PPV. Why: As needed with questions, not mandatory Contact information [address] [facility] [address] Primary care provider. Schedule an [...] Martin Discharging Surgeon : Magali Elias MD [facility] Division of Acute Care Surgery/Critical Care [address] [place] [address] [id number] signed by Magali Elias MD,MPH at 12/09/2017 [...] EOMI Neck: weaning cervical aspen collar & STORAGE ADMINISTRATOR per NSG weaning protocol Respiratory: unlabored on [...] Started bolus tube feeds 11/23: Begun C collar/STORAGE ADMINISTRATOR weaning 11/28: Psychiatry re-consulted for behavioral issues [...] for aspiration # nutrition - NPO, DIRECTOR OF EMPLOYER SERVICES evaluating patient when out of c collar [...] - Neurosurgery following peripherally - Must wear STORAGE ADMINISTRATOR when OOB, ok for C-collar only when in bed - 12 week collar period up on 11/23, Neurosurgery documented C collar/STORAGE ADMINISTRATOR weaning protocol o gloria next 5 weeks- [...] coverage Disposition: continue tube feeds, continue DIRECTOR OF EMPLOYER SERVICES evals while c collar off. Started depakote f or agitation with good response. Girlfriend Magali will be visiting today, this is ok per his sister Annita (see social work note). [place] [phone] [facility] [place] [address] [phone] Associated attestation - Magali Elias MD,MPH - [...] EOMI Neck: weaning cervical aspen collar & STORAGE ADMINISTRATOR per NSG weaning protocol Respiratory: unlabored on [...] Started bolus tube feeds 11/23: Begun C collar/STORAGE ADMINISTRATOR weaning 11/28: Psychiatry re-consulted for behavioral issues [...] for aspiration # nutrition - NPO, DIRECTOR OF EMPLOYER SERVICES evaluating patient when out of c collar [...] - Neurosurgery following peripherally - Must wear STORAGE ADMINISTRATOR when OOB, ok for C-collar only when in bed - 12 week collar period up on 11/23, Neurosurgery documented C collar/STORAGE ADMINISTRATOR weaning protocol o gloria next 5 weeks- [...] coverage Disposition: continue tube feeds, continue DIRECTOR OF EMPLOYER SERVICES evals while c collar off. Started depakote f or agitation with good initial response. Pending placement [place] adult [place] [phone] [facility] [address] [place] [phone] Associated attestation - Magali Elias MD,MPH - [...] Started bolus tube feeds 11/23: Begun C collar/STORAGE ADMINISTRATOR weaning 11/28: Psychiatry re-consulted for behavioral issues [...] for aspiration # nutrition - NPO, DIRECTOR OF EMPLOYER SERVICES evaluating patient when out of c collar [...] - Neurosurgery following peripherally - Must wear STORAGE ADMINISTRATOR when OOB, ok for C-collar only when in bed - 12 week collar period up on 11/23, Neurosurgery documented C collar/STORAGE ADMINISTRATOR weaning protocol o gloria next 5 weeks- [...] coverage Disposition: continue tube feeds, continue DIRECTOR OF EMPLOYER SERVICES evals while c collar off. Starting depakote for agitation. Pending placement at adult foster home [place] [address] [facility] [place] [id number] [place] [address] [phone] Associated attestation - Magali Elias MD,MPH - [...] . Ok to resume feeds. Ad Callejas [id number] rafts, Venita Maciel PA-C - 12/02/2017 10:55 [...] Started bolus tube feeds 11/23: Begun C collar/STORAGE ADMINISTRATOR weaning 11/28: Psychiatry re-consulted for behavioral issues [...] for aspiration # nutrition - NPO, DIRECTOR OF EMPLOYER SERVICES evaluating patient when out of c collar [...] - Neurosurgery following peripherally - Must wear STORAGE ADMINISTRATOR when OOB, ok for C-collar only when [...] coverage Disposition: continue tube feeds, continue DIRECTOR OF EMPLOYER SERVICES evals while c collar off. Optimize sleep. Venita Pruitt PA-[place] [phone] [place] [phone] [facility] [place] [address] [place] [facility] [place] [address] Associated attestation - [...] Started bolus tube feeds 11/23: Begun C collar/STORAGE ADMINISTRATOR weaning 11/28: Psychiatry re-consulted for behavioral issues [...] for aspiration # nutrition - NPO, DIRECTOR OF EMPLOYER SERVICES evaluating patient when out of c collar [...] - Neurosurgery following peripherally - Must wear STORAGE ADMINISTRATOR when OOB, ok for C-collar only when [...] coverage Disposition: continue tube feeds, continue DIRECTOR OF EMPLOYER SERVICES evals while c collar off. Going back on hald ol for aggression. Optimize sleep. [place] [phone] [place] [phone] [facility] [address] [facility] [address] [phone] Associated attestation - Shiva Nieto MD,MPH - 12/01/2017 2:17 PM PDTATTENDING ADDENDU M: I personally interviewed and examined the patient today with the trauma team and the physic gabriela staff physical therapy assistant. I participated in the development of and agree with the assessment and plan. 1. Scheduled haloperidol BID 5mg. Plus PRN 2. Continue DIRECTOR OF EMPLOYER SERVICES evaluation 3. Melatonin for qHS sleep Shiva Nieto MD, MPH Attending Surgeon Trauma, Critical Care & Acute Care Surgery [facility] [phone] Monse Carrasco MD,MPH - 11/30/2017 10:43 AM [...] EOMI Neck: intermittently in aspen collar and STORAGE ADMINISTRATOR Respiratory: unlabored on room air CV: regular [...] Started bolus tube feeds 11/23: Begun C collar/STORAGE ADMINISTRATOR weaning 11/28: Psychiatry re-consulted for behavioral issues [...] for aspiration # nutrition - NPO, DIRECTOR OF EMPLOYER SERVICES evaluating patient when out of c collar [...] - Neurosurgery following peripherally - Must wear STORAGE ADMINISTRATOR when OOB, ok for C-collar only when [...] coverage Disposition: continue tube feeds, continue DIRECTOR OF EMPLOYER SERVICES evals while c collar off. Optimize sleep. Monse Carrasco MD MPH [facility] [place] [address] [address] [facility] [address] [phone] Associated attestation - Shlomo Rosenthal MD - 12/05/2017 10:55 AM PDTI saw and examined Charli Temple ([id number]) with the TRAUMA team on 11/30/2017. I agree with the assessment and plan a s outlined in this note and participated in the planning of care. I have personally reviewed all pertinent labarotory findings, radiographs, and physiologic parameters. I personally pe rformed pertinent parts of the physical examination and personally formulated the plan with the TRAUMA team. Shlomo Rosenthal MD Clerk [address] Division of Trauma and Critical Care Monse [...] scalp, EOMI Neck: in aspen collar and STORAGE ADMINISTRATOR Respiratory: unlabored on room air CV: regular [...] Started bolus tube feeds 11/23: Begun C collar/STORAGE ADMINISTRATOR weaning 11/28: Psychiatry re-consulted for behavioral issues [...] for aspiration # nutrition - NPO, DIRECTOR OF EMPLOYER SERVICES evaluating patient when out of c collar [...] - Neurosurgery following peripherally - Must wear STORAGE ADMINISTRATOR when OOB, ok for C-collar only when [...] coverage Disposition: continue tube feeds, continue DIRECTOR OF EMPLOYER SERVICES evals and c collar weaning. Optimize sleep Monse Carrasco MD MPH [facility] [address] [address] [phone] Associated attestation - Brian Painting MD - 12/08/2017 7:33 PM PDTAttending: I saw and examined Berlin Temple ([id number]) with the residents on 11/29/17 and agree with e assessment and plan as outlined in this note and participated in the planning of care. Brian Painting MD FACS card dealer Division of Trauma, Critical Care & Acute [...] scalp, EOMI Neck: in aspen collar and STORAGE ADMINISTRATOR Respiratory: unlabored on room air CV: regular [...] Started bolus tube feeds 11/23: Begun C collar/STORAGE ADMINISTRATOR weaning 11/28: Psychiatry re-consulted for behavioral issues [...] for aspiration # nutrition - NPO, DIRECTOR OF EMPLOYER SERVICES evaluating patient when out of c collar [...] - Neurosurgery following peripherally - Must wear STORAGE ADMINISTRATOR when OOB, ok for C-collar only when [...] coverage Disposition: continue tube feeds, continue DIRECTOR OF EMPLOYER SERVICES evals and c collar weaning Monse Carrasco MD MPH [facility] [employer] [address] [place], [place] [id number] [phone] Associated attestation - Brian Painting MD - 11/28/2017 11:06 PM PDTAttending: I saw and examined Berlin Temple ([id number]) with the residents on 11/28/17 and agree with mdaiha assessment and plan as outlined in this note and participated in the planning of care. Brian Painting MD FACS card dealer Division of Trauma, Critical Care & Acute Care Surgery Fernando Li PA - 11/27/2017 3:32 PM PDTFormatting of this note might be differe nt from the original. NEUROSURGERY INPATIENT PROGRESS NOTE Hospital Day: Author; FERNANDO LI PA-C Attending Physician: Chaz Munoz MD Neurosurgery: Magdiel Stock MD Interval Hx: -No events overnight -In process of STORAGE ADMINISTRATOR weaning. Denies neck pain. Physical Exam: Last [...] Patient being managed in C collar and STORAGE ADMINISTRATOR. -Patient developed drainage from previous crani site [...] imary Team. -Instructions have been provided for STORAGE ADMINISTRATOR weaning. -Patient's exam stable. Denies Neck pain. Repeat imaging stable. Scalp incision healing well. -Please contact our service if there are any questions or need to re-consult. -No outpatient Neurosurgery FU needed. FERNANDO LI PA-C [facility] [address] [place] [address] Pg [phone] MEDICATIONS Current Facility-Administered Medications Medication acetaminophen (TYLENOL) [...] Progress Note Name: BERLIN TEMPLE HPI: Berlin Tepmle is a 67 y.o. male with a [...] scalp, EOMI Neck: in aspen collar and STORAGE ADMINISTRATOR Respiratory: unlabored on room air CV: regular [...] Started bolus tube feeds 11/23: Begun C collar/STORAGE ADMINISTRATOR weaning Active issues/Plan: # BIG 3 TBI [...] for aspiration # nutrition - NPO, DIRECTOR OF EMPLOYER SERVICES evaluating patient when out of c collar [...] - Neurosurgery following peripherally - Must wear STORAGE ADMINISTRATOR when OOB, ok for C-collar only when [...] coverage Disposition: continue tube feeds, continue DIRECTOR OF EMPLOYER SERVICES evals and c collar weaning CHRISTIAN KELLEY PA-C [facility] [place] [address] [phone] Associated attestation - Brian Painting MD - 11/27/2017 8:50 PM PDTAttending: I saw and examined Berlin Temple ([id number]) with Christian Kelley PA-C on 11/27/17 and agree wi th the assessment and plan as outlined in this note and participated in the planning of care . Increase melatonin and trazodone for insomnia. Enteral feeding via PEG tube for dysphagia. Disposition planning. Brian Painting MD FACS card dealer Division of Trauma, Critical Care & Acute Care Surgery [facility], Venita Maciel PA-C - 11/26/2017 6:25 [...] C- collar based on NSG plan DIRECTOR OF EMPLOYER SERVICES continues to follow Current meds: I have [...] Started bolus tube feeds 11/23: Begun C collar/STORAGE ADMINISTRATOR weaning Active issues/Plan: # BIG 3 TBI [...] for aspiration # nutrition - NPO, DIRECTOR OF EMPLOYER SERVICES evaluating patient when out of c collar [...] - Neurosurgery following peripherally - Must wear STORAGE ADMINISTRATOR when OOB, ok for C-collar only when [...] looking for placement Venita Pruitt PA-C [place] [phone] [facility] [address] [place] [address] [phone] Associated attestation - Brian Painting MD - 11/26/2017 8:52 PM PDTAttending: I saw and examined Berlin Temple ([id number]) with Venita Pruitt PA-C on 11/26/17 and agree wi th the assessment and plan as outlined in this note and participated in the planning of care . Continue enteral feeding via PEG tube due to dysphagia. Speech pathology continues to foll ow. Maintain cervical immbolization collar while in bed for C7 bilateral lamina fractures. D ischarge planning. Brian Painting MD FACS card dealer Division of Trauma, Critical Care & Acute [...] C- collar based on NSG plan DIRECTOR OF EMPLOYER SERVICES continues to follow Current meds: I have [...] Started bolus tube feeds 11/23: Begun C collar/STORAGE ADMINISTRATOR weaning Active issues/Plan: # BIG 3 TBI [...] for aspiration # nutrition - NPO, DIRECTOR OF EMPLOYER SERVICES evaluating patient when out of c collar [...] - Neurosurgery following peripherally - Must wear STORAGE ADMINISTRATOR when OOB, ok for C-collar only when [...] looking for placement Venita Pruitt PA-C [place] [phone] [facility] [place] [address] [place] [facility] [place] [address] Associated attestation - Brian Painting MD - 11/26/2017 11:56 AM PDTAttending: I saw and examined Berlin Temple ([id number]) with Venita Pruitt PA-C on 11/25/17 and agree wi th the assessment and plan as outlined in this note and participated in the planning of care . Continue bolus enteral feeding via PEG tube for dysphagia. Trazodone and quetiapine for tr aumatic encephalopathy and agitation. Maintain cervical immbolization collar while in bed. Brian Painting MD FACS card dealer Division of Trauma, Critical Care & Acute [...] No acute events overnight Worked with DIRECTOR OF EMPLOYER SERVICES yesterday - remains NPO Doing well with c collar/grain mill products inspector weaning plan Current meds: I have [...] to midline right scalp, EOMI Neck: in [place] collar Chest: in STORAGE ADMINISTRATOR Respiratory: unlabored on room air CV: regular [...] Started bolus tube feeds 11/23: Begun C collar/STORAGE ADMINISTRATOR weaning Active issues/Plan: # BIG 3 TBI [...] for aspiration # nutrition - NPO, DIRECTOR OF EMPLOYER SERVICES evaluating patient when out of c collar [...] - Neurosurgery following peripherally - Must wear STORAGE ADMINISTRATOR when OOB, ok for C-collar only when [...] KELLEY PA-C [facility] [place] [address] [address] [facility] [place] [phone] Associated attestation - Santos Cardozo MD - [...] with speech toward being able to swallow. [id number] Christian Kelley PA-C - 11/23/2017 12:26 PM [...] overnight Planning to begin C collar and STORAGE ADMINISTRATOR weaning plan Current meds: I have independently [...] to midline right scalp, EOMI Neck: in [place] collar Chest: in STORAGE ADMINISTRATOR Respiratory: CTA bilaterally, lungs symmetrical, equal chest [...] Started bolus tube feeds 11/23: Begun C collar/STORAGE ADMINISTRATOR weaning Active issues/Plan: # BIG 3 TBI [...] for aspiration # nutrition - NPO, DIRECTOR OF EMPLOYER SERVICES following - PEG tube feeds switched to goal @ 250 mL x 5/day, 225ml free water flushes 5x/day - DIRECTOR OF EMPLOYER SERVICES to work with patient on swallow while [...] - Neurosurgery following peripherally - Must wear STORAGE ADMINISTRATOR when OOB, ok for C-collar only when [...] KELLEY PA-C [facility] [place] [address] [address] [place] [address] [phone] [facility] - 11/22/2017 6:37 AM PDTFormatting of this [...] for aspiration # nutrition - NPO, DIRECTOR OF EMPLOYER SERVICES following - PEG tube feeds switched to [...] - Neurosurgery following peripherally - Must wear STORAGE ADMINISTRATOR when OOB, ok for C-collar only when [...] agitation & sleep [place] [phone] [facility] [address] [facility] [phone] Associated attestation - Fidelina Shields MD - 11/25/2017 5:51 AM PDTAttending: I saw and examined Berlin Temple ([id number]) with KESHAWN Alexander on mornin g rounds 11/22/17 and agree with the assessment and plan as outlined in this note and partic ipated in the planning of care. This is a late entry for care provided on that date. Sleep is somewhat improved with adjusted medication regimen. Increasing mobility. Plan c-c ollar weaning per neurosurgery recs. Fidelina Shields MD Instructional Support Services Director Division of Trauma, Critical Care and Acute Care Surgery Office: [phone] Pager: [phone] Fernando Li PA - 11/21/2017 4:21 PM PDTNeurosurgery Brief Note: Reviewed repeat imaging C spine. Ok to start C Collar and STORAGE ADMINISTRATOR taper as planned on 11/23/17. Written 5 [...] [facility] [address] [place] [address] ELLNemo Atkins AGACNP - 11/21/2017 6:52 AM [...] for aspiration # nutrition - NPO, DIRECTOR OF EMPLOYER SERVICES following - PEG tube feeds switched to [...] - Neurosurgery following peripherally - Must wear STORAGE ADMINISTRATOR when OOB, ok for C-collar only when [...] Sleep & agitation [place] [address] [facility] [place] [address] [phone] Associated attestation - Fidelina Shields MD - 11/21/2017 2:27 PM PDTAttending: I saw and examined Berlin Temple ([id number]) with KESHAWN Alexander on mornin g rounds [...] mobility and daytime wakefullness. Fidelina Shields MD Instructional Support Services Director Division of Trauma, Critical Care and Acute Care Surgery Office: [phone] Pager: [phone] Venita Pruitt PA-C - 11/20/2017 12:31 PM [...] for aspiration # nutrition - NPO, DIRECTOR OF EMPLOYER SERVICES following - PEG tube feeds switched to [...] - Neurosurgery following peripherally - Must wear STORAGE ADMINISTRATOR when OOB, ok for C-collar only when [...] seroquel as needed. Venita Pruitt PA-C [place] [phone] [place] [phone] [facility] [address] [place] [facility] [phone] Associated attestation - Fidelina Shields MD - [...] Placement remains a challenge. Fidelina Shields MD Instructional Support Services Director Division of Trauma, Critical Care and Acute Care Surgery Office: [phone] Pager: [phone] Fernando Li PA - 11/20/2017 10:51 AM [...] Patient being managed in C collar and STORAGE ADMINISTRATOR. -Patient developed drainage from previous crani site [...] Spine immobilization. Cervical collar while in bed, STORAGE ADMINISTRATOR when OOB planned duration of immobilization 12 weeks total: 11/23/17. Will then wean out of Cervical collar over 5 week period. Will provide written instructions. FERNANDO LI PA-C [facility] [address] [place] [phone] MEDICATIONS Current Facility-Administered Medications Medication acetaminophen (TYLENOL) [...] for aspiration # nutrition - NPO, DIRECTOR OF EMPLOYER SERVICES following - PEG tube feeds switched to [...] - Neurosurgery following peripherally - Must wear STORAGE ADMINISTRATOR when OOB, ok for C-collar only when [...] seroquel as needed. Venita Pruitt PA-C [place] [phone] [place] [phone] [facility] [address] [place] [address] [place] [facility] [phone] Associated attestation - Fidelina Shields MD - 11/19/2017 2:24 PM PDTAttending: I saw and examined Berlin Temple with Venita Pruitt PA-C on morning rounds 11/19/17 and ag ree with the assessment and plan as outlined in this note and participated in the planning o f care. Adjusting antipsychotic medication and behavioral interventions while we search for suitabl e discharge plan. Fidelina Shields MD Instructional Support Services Director Division of Trauma, Critical Care and Acute Care Surgery Office: [phone] Pager: [phone] Fernando Li PA - 11/18/2017 9:03 AM PDTFormatting of this note might be differe nt from the original. NEUROSURGERY INPATIENT PROGRESS NOTE Hospital Day: Author; FERNANDO LI PA-C Attending Physician: Chaz Munoz MD Neurosurgery Attending: Mgadiel Stock MD Interval Hx: -No acute events. [...] Patient being managed in C collar and STORAGE ADMINISTRATOR. -Patient developed drainage from previous crani site [...] Spine immobilization. Cervical collar while in bed, STORAGE ADMINISTRATOR when OOB planned duration of immobilization 12 weeks total: 11/23/17. Will then wean out of Cervical collar over 5 week period. Will provide written instructions. FERNANDO LI PA-C [facility] [address] [place] [address] Pg [phone] MEDICATIONS Current Facility-Administered Medications Medication acetaminophen (TYLENOL) [...] [facility] [...] for aspiration # nutrition - NPO, DIRECTOR OF EMPLOYER SERVICES following - PEG tube feeds switched to [...] - Neurosurgery following peripherally - Must wear STORAGE ADMINISTRATOR when OOB, ok for C-collar only when in bed - Will likely need for 12 weeks (ends November 23), then wean out of Cervical collar over 5 w [place] period. Per NSG they will provide written [...] haldol as tolerated Venita Pruitt PA-C [place] [phone] [place] [phone] [facility] [address] [place] [facility] [phone] Associated attestation - Fidelina Shields MD - 11/19/2017 12:18 AM PDTAttending: I saw and examined Berlin Temple with Venita Pruitt PA-C on morning rounds 11/18/17 and ag ree with the assessment and plan as outlined in this note and participated in the planning o f care. Mental status continues to wax/wane, working on disposition options. Fidelina Shields MD Instructional Support Services Director Division of Trauma, Critical Care and Acute Care Surgery Office: [phone] Pager: [phone] Sherine Sarmiento, AGACNP - 11/17/2017 10:49 AM [...] for aspiration # nutrition - NPO, DIRECTOR OF EMPLOYER SERVICES following - PEG tube feeds switched to goal @ 275 mL x 5/day, 200ml free water flushes 5x/day # insomnia - melatonin 3mg qhs - Haldol 5mg Qhs - Trazadone increased from 50 [id number] QHS with no effect - Start Quetiapine 50mg QHS with 25mg Q12hrs PRN, with the goal of uptitrating seroquel and weaning off haldol - ECG 11/17 QTC 427 #Relative hypotension - Improving after initiation of free water flushes - Orthostatics negative # 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 Per NSG they will provide written [...] will add seroquel [place] [phone] [facility] [place] [address] [address] Associated attestation - Em Cunningham MD - 11/27/2017 9:13 PM PDTI was present and rou nded with the Advanced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 wiggles toes and toes pink and well perfused Musculoskeletal: 5/5 family service worker strength on right, 3/5 family service worker strength on left FEN: on TPN Heme/ID: [...] & delirium - numerous evaluations by DIRECTOR OF EMPLOYER SERVICES with trials of PO - now s/p modified barium swallow x2 which indicates aspiration - continue NPO - DIRECTOR OF EMPLOYER SERVICES reports that patient working on tongue strength [...] . - C-collar at all times, use STORAGE ADMINISTRATOR when OOB - Follow-up with Neurosurgery on 10/21 with repeat X-rays #Blunt abdominal trauma #Splenic laceration S/p laparotomies x2. Fascia closed 09/02 Wound vac removed by patient, but wound remains duke n/dry/intact. [place] removed 09/17. #Left hemothorax Chest tube placed [...] with trauma team and sister. Sherine Sarmiento, [facility] [place] [phone] Associated attestation - Fidelina Shields MD - 10/02/2017 4:40 PM PDTAttending: I saw and examined Berlin Temple ([id number]) with KESHAWN Alexander on mornin g rounds 10/01/17 and agree with the assessment and plan as outlined in this note and partic ipated in the planning of care. Will trial DHT placement today, CT head unchanged. Suspect somnolence is medication side ef fect and, if persistent, may need to wean antipsychotic doses. Fidelina Shields MD Instructional Support Services Director Division of Trauma, Critical Care and Acute Care Surgery Office: [phone] Pager: [phone] Christian Kelley PA-C - 09/30/2017 12:21 PM [...] Fixed and dilated on left Neck: in [place] collar Respiratory: CTA bilaterally, lungs symmetrical, equal chest wall rise, no retractions CV: RRR GI: non tender, soft, active BS, last BM 09/30 : Patient voiding without difficulty Extremities: no peripheral edema, wiggles toes and toes pink and well perfused Musculoskeletal: 5/5 family service worker strength on right, 3/5 family service worker strength on left FEN: on TPN Heme/ID: [...] & delirium - numerous evaluations by DIRECTOR OF EMPLOYER SERVICES with trials of PO - now s/p modified barium swallow x2 which indicates aspiration - continue NPO - DIRECTOR OF EMPLOYER SERVICES reports that patient working on tongue strength [...] . - C-collar at all times, use STORAGE ADMINISTRATOR when OOB - Follow-up with Neurosurgery on 10/21 with repeat X-rays #Blunt abdominal trauma #Splenic laceration S/p laparotomies x2. Fascia closed 09/02 Wound vac removed by patient, but wound remains duke n/dry/intact. [place] removed 09/17. #Left hemothorax Chest tube placed [...] PDTAttending: I saw and examined Berlin Temple ([id number]) with Christian Kelley PA-C on morning rounds 09/30 and agree with the assessment and plan as outlined in this note and participated in the planning of care. Mentally slower this morning, but non-focal. Received haldol overnight for sleep. Repeat head CT was unchanged so suspect etiology of slowed responsiveness is the antipsychotic dose . DIRECTOR OF EMPLOYER SERVICES believes that, once collar off, may be able to take PO more effectively and thus will hold off on surgical feeding access. TPN is a temporary solution and if patient remains kaye nable will trial DHT tomorrow. Working with psychiatry for medication recommendations. Fidelina Shields MD Instructional Support Services Director Division of Trauma, Critical Care and Acute Care Surgery Office: [phone] Pager: [phone] July Banegas PA-C - 09/30/2017 8:23 AM PDTBrief Neurosurgery Wound Check: Wound is dry, without erythema, not fluctuant. No acute swelling. Nylon in place. Will plan to follow peripherally for wound checks and remove nylons on 10/09. JULY BANEGAS PA-C [facility] [address] [place] [address] Christian Begum PA-C - 09/29/2017 7:15 AM [...] and EOMs intact to exam Neck: in [place] collar Respiratory: CTA bilaterally, lungs symmetrical, equal [...] & delirium - numerous evaluations by DIRECTOR OF EMPLOYER SERVICES with trials of PO - now s/p [...] . - C-collar at all times, use STORAGE ADMINISTRATOR when OOB - Follow-up with Neurosurgery on [...] PDTAttending: I saw and examined Berlin Temple ([id number]) with Christian Kelley PA-C on morning rounds 09/29 and agree with the assessment and plan as outlined in this note and participated in the planning of care. Late entry for 09/29/17. Persistent alterations in conscious and dysphagia. Hopefully with ongoing speech therapy a nd when clear to take c-collar off, will improve ability to take PO. While TPN is not an opt imal correction strategy, would prefer not to place surgical feeding tube if possible given r elatively recent damage control laparotomy and high risk of Mr. Temple pulling it out. Have tried DHT several times and it seems to worsen delirium and he pulls it out frequently. Tit ration of haldol in conjunction with psychiatry. Fidelina Shields MD Instructional Support Services Director Division of Trauma, Critical Care and Acute Care Surgery Office: [phone] Pager: [phone] Christian Kelley PA-C - 09/28/2017 1:01 PM [...] he said, who, ariel? And then the SALES OPERATIONS CONSULTANT helped him make a call to [...] and EOMs intact to exam Neck: in [place] collar Respiratory: CTA bilaterally, lungs symmetrical, equal [...] very agitated today. - EKG today with [employer] QTc calculated to be 428 - optimize [...] & delirium - numerous evaluations by DIRECTOR OF EMPLOYER SERVICES with trials of PO - now s/p [...] . - C-collar at all times, use STORAGE ADMINISTRATOR when OOB - Follow-up with Neurosurgery on [...] communicate more toyoselin ySelvin Munoz MD, FACS Instructional Support Services Director, Trauma, Critical Care and Acute Care Surgery Chaz Munoz MD - 09/28/2017 10:13 AM PDTTrauma Staff Seen and examined this AM with team. I have concerns abotu behaviour, as he is consistently threatening RN and ancillary staff, even attempting swings. Behavior seems worse at night. I would favor increasing night time Haldol dose, and following EKGs. Chaz Munoz MD, FACS Instructional Support Services Director, Trauma, Critical Care and Acute Care [...] surrounding erythema, swelling or drainage. ASSESSMENT: Berlin Tepmle is a 67 y.o. male history of prior TBI, OSH R D[facility] -now admitted for ped vs a uto 08/31/17. Exam improving, particularly improved L sided weakness. No evidence of leakage from scalp wound. PLAN: We will continue to follow wound. Nylon to be removed on 10/09. Dallin Bourgeois MD Neurosurgery PGY1 | Pager #[phone] Christian Begum PA-C - 09/27/2017 7:31 AM [...] to have a linear conversation briefly DIRECTOR OF EMPLOYER SERVICES requesting repeat barium swallow Current meds: I [...] incision healing , suture c/d/I Neck: in STORAGE ADMINISTRATOR Respiratory: unlabored on room air, lungs symmetrical, [...] & delirium - numerous evaluations by DIRECTOR OF EMPLOYER SERVICES with trials of PO - now s/p [...] . - C-collar at all times, use STORAGE ADMINISTRATOR when OOB - Follow-up with Neurosurgery on 10/21 with repeat X-rays #Blunt abdominal trauma #Splenic laceration S/p laparotomies x2. Fascia closed 09/02 Wound vac removed by patient, but wound remains duke n/dry/intact. [place] removed 09/17. #Left hemothorax Chest tube placed [...] [facility] [address] [place] [address] Christian Kelley PA-C - 09/26/2017 6:48 AM [...] posterior scalp crani incision c/d/I Neck: in [place] collar Respiratory: unlabored on room air CV: [...] & delirium - numerous evaluations by DIRECTOR OF EMPLOYER SERVICES with trials of PO - now s/p [...] . - C-collar at all times, use STORAGE ADMINISTRATOR when OOB - Follow-up with Neurosurgery on 10/21 with repeat X-rays #Blunt abdominal trauma #Splenic laceration S/p laparotomies x2. Fascia closed 09/02 Wound vac removed by patient, but wound remains duke n/dry/intact. [place] removed 09/17. #Left hemothorax Chest tube placed [...] [address] [place] [address] Christian Kelley PA-C - 09/25/2017 7:49 AM [...] HEENT: EOMs intact to exam Neck: in STORAGE ADMINISTRATOR brace Respiratory: unlabored on room air CV: [...] & delirium - numerous evaluations by DIRECTOR OF EMPLOYER SERVICES with trials of PO - now s/p [...] . - C-collar at all times, use STORAGE ADMINISTRATOR when OOB - Follow-up with Neurosurgery on 10/21 with repeat X-rays #Blunt abdominal trauma #Splenic laceration S/p laparotomies x2. Fascia closed 09/02 Wound vac removed by patient, but wound remains duke n/dry/intact. [place] removed 09/17. #Left hemothorax Chest tube placed [...] [facility] [address] [place] [address] Christian Kelley PA-C - 09/24/2017 11:07 AM [...] agitation Having difficulty swallowing again - DIRECTOR OF EMPLOYER SERVICES to re-eval and obtain barium swallow Current [...] HEENT: EOMs intact to exam Neck: in STORAGE ADMINISTRATOR brace Respiratory: CTA bilaterally, lungs symmetrical, equal chest wall rise, no retractions CV: RRR GI: non distended, last BM 09/23 : good urine output Extremities: SCD's in place, no peripheral edema, wiggles toes and toes pink and well perfu sed Musculoskeletal: 5/5 strength in bilateral family service worker (but with slightly weaker on left) , [...] seroquel dose QHS for insomnia/restlessness at [facility] - Haldol 5mg q12hr prn for [...] 2/2 AMS & delirium - Failed DIRECTOR OF EMPLOYER SERVICES eval 09/19 & 09/20, made NPO & dobhoff reinserted 09/21 but pulled overnight - Per DIRECTOR OF EMPLOYER SERVICES on 09/21, ok for therapeutic pureed with [...] . - C-collar at all times, use STORAGE ADMINISTRATOR when OOB - Follow-up with Neurosurgery on [...] [facility] [address] [place] [address] Ginette Campos PA-C - 09/24/2017 9:31 AM [...] 4 extremities Unable to assess drift. Motor: Mechanical Technician Bicep Tricep Delt R 5 5 [...] [facility] [address] [place] [address] ELLGabriel Atkins AGACNP - 09/23/2017 6:32 AM [...] hiscence, draining minimal serosang fluid Neck: in STORAGE ADMINISTRATOR brace Respiratory: unlabored on room air CV: [...] seroquel dose QHS for insomnia/restlessness at [facility] - Repeat ECG 09/22 with QTc [...] 2/2 AMS & delirium - Failed DIRECTOR OF EMPLOYER SERVICES eval 09/19 & 09/20, made NPO & dobhoff reinserted 09/21 but pulled overnight - Per DIRECTOR OF EMPLOYER SERVICES on 09/21, ok for therapeutic pureed with [...] . - C-collar at all times, use STORAGE ADMINISTRATOR when OOB - Follow-up with Neurosurgery on 10/21 with repeat X-rays #Blunt abdominal trauma #Splenic laceration S/p laparotomies x2. Fascia closed 09/02 Wound vac removed by patient, but wound remains duke n/dry/intact. [place] removed 09/17. #Left hemothorax Chest tube placed [...] dysphagia & delir ium improves Sherine Sarmiento, [facility] [place] [phone] Dallin Deshpande MD - 09/22/2017 8:03 AM [...] [address] ASSESSMENT: eBrlin Temple is a 67 y.o. male history [...] Dallin Bourgeois MD Neurosurgery PGY1 | Pager #[phone] [facility] Sherine Madiha, [facility] - 09/22/2017 6:52 AM PDTFormatting of this [...] events: - Therapeutic purees initiated by DIRECTOR OF EMPLOYER SERVICES yesterday - Trickle feeds via Dobbhoff, pt pulled Dobbhoff yesterday evening- not replaced - MANIPULATIVE THERAPY SPECIALIST called around 2130 for new left facial [...] sluggish. Slight left facial droop Neck: in [place] collar Respiratory: unlabored on room air CV: [...] seroquel dose QHS for insomnia/restlessness at [facility]- - Repeat ECG 09/22 with Q Tc WNL. - Haldol 5mg q12hr prn for severe agitation #Substance abuse, concern for Alcohol withdrawal - CIWA discontinued 09/08, not scoring. - Thiamine & folate started 09/21 #Dysphagia, risk for aspiration #Protein calorie malnutirtion - likely 2/2 AMS & delirium - Failed DIRECTOR OF EMPLOYER SERVICES eval 09/19 & 09/20, made NPO & dobhoff reinserted 09/21 but pulled overnight - Per DIRECTOR OF EMPLOYER SERVICES on 09/21, ok for therapeutic pureed with [...] . - C-collar at all times, use STORAGE ADMINISTRATOR when OOB - Follow-up with Neurosurgery on [...] when dysphagia & delirium improves Sherine Sarmiento, [facility] [place] [phone] Associated attestation - Shiva Nieto MD,MPH - [...] Acute Care Surgery [facility] [phone] Sami Black - 09/21/2017 10:25 PM PDTBrief [...] in the morning. Plan: -neuro checks; page [phone] for any decline in neurological examination -pain control -Hard C collar at all times and place STORAGE ADMINISTRATOR prior to mobilizing OOB. Anticipated duration of Collar/STORAGE ADMINISTRATOR is 12 weeks -repeat CT head for any new decline in neurological exam and page [phone] -NPO at midnight tonight -please hold tonight's planned dose of Lovenox -further recommendations in the morning Sami Black MD, PhD PGY-3 Resident Neurosurgery [id number] signed by Sami Black at 09/21/2017 10:50 PM [facility] est[facility] - 09/21/2017 7:10 AM PDTFormatting of this [...] placem ent 24hr events: - Failed DIRECTOR OF EMPLOYER SERVICES eval again yest morning, continued NPO - [...] reactive. Dobbhoff tube in place Neck: in [place] collar Respiratory: unlabored on room air CV: [...] 2/2 AMS & delirium - Failed DIRECTOR OF EMPLOYER SERVICES eval 09/19 & 09/20, made NPO & dobhoff reinserted yesterday - Trickle feeds started this am at 20ml/hr, increase very slowly by 10ml every 12 hrs to go al of 75 due to hx of mesenteric hematomas and previous inability to tolerate TF - Per DIRECTOR OF EMPLOYER SERVICES today, ok for therapeutic pureed with nectar [...] . - C-collar at all times, use STORAGE ADMINISTRATOR when OOB - Follow-up with Neurosurgery on 10/21 with repeat X-rays #Blunt abdominal trauma #Splenic laceration S/p laparotomies x2. Fascia closed 09/02 Wound vac removed by patient, but wound remains duke n/dry/intact. [place] removed 09/17. #Left hemothorax Chest tube placed [...] & delirium [place] [phone] Associated attestation - Fidelina Shields MD - 09/21/2017 9:36 PM PDTAttending: I saw and examined Berlin Temple ([id number]) with KESHAWN Alexander on scarlett ortega rounds [...] enough to re-trial PO. Fidelina Shields MD Instructional Support Services Director Division of Trauma, Critical Care and Acute Care Surgery Office: [phone] Pager: [phone] Sherine Sarmiento AGACNP - 09/20/2017 7:41 AM [...] given yesterday afternoon for agitation - DIRECTOR OF EMPLOYER SERVICES paged to re-eval in afternoon after concern for aspiration, made NPO by DIRECTOR OF EMPLOYER SERVICES - DARNELL SOLANO Current meds: I have [...] right pupil 3 and reactive Neck: in [place] collar Respiratory: unlabored on room air CV: [...] d iet. Made NPO yesterday by DIRECTOR OF EMPLOYER SERVICES after concern for aspiration. This is likely 2/2 waxing & wan ing delirium & AMS - DIRECTOR OF EMPLOYER SERVICES re-eval today recommend continue NPO d/t overt clinical signs of aspiration - Place Dobbhoff tube and restart feeds, slowly progress to goal - Stop TPN when tolerating tube feeds - DIRECTOR OF EMPLOYER SERVICES will follow closely, as his AMS improves [...] . - C-collar at all times, use STORAGE ADMINISTRATOR when OOB - Follow-up with Neurosurgery on [...] dysphagia & delirium i mproves Sherine Sarmiento, [facility] [place] [phone] Associated attestation - Fidelina Shields MD - 09/20/2017 9:34 PM PDTAttending: I saw and examined Berlin Temple ([id number]) with KESHAWN Alexander on mornin g rounds [...] dispo planning when able. Fidelina Shields MD Instructional Support Services Director Division of Trauma, Critical Care and Acute Care Surgery Office: [phone] Pager: [phone] Mary Medrano MD,MPH - 09/19/2017 6:22 AM [...] from thin to thick liquids by DIRECTOR OF EMPLOYER SERVICES Current meds: I have independently reviewed current [...] intact, small Right fluctuant pseudomeningocele Neck: in [place] collar Respiratory: unlabored on room air CV: [...] on09/19. - Cleared for diet by DIRECTOR OF EMPLOYER SERVICES, tolerating purees, 749 Calories yesterday - Restart Calorie count: if taking >700 again will be OK for full po diet, otherwise replac e DHT and restart TF - Stop TPN tomorrow regardless - Still considering repeat CT abdomen/pelvis #Dysphagia DHTreplaced overnight 09/07. TF held due to emesis and possible ileus, aspiration risk. DH T pulled overnight on 09/18 - DIRECTOR OF EMPLOYER SERVICES as able Resolved or chronic issues/Plan: #BIG 3 TBI #Right synthetic cranioplasty Neurosurgery consulted. Non-operative management. Last head CT 09/12 stable. Expected pseudo meningocele. Left-sided deficits consistent with baseline. - Stat head CT for any neurologic decline #C7 bilateral lamina fractures #C6-T2 spinous process fractures Neurosurgery consulted. Non-operative management. Upright cervical X-rays completed on 09/14 . - C-collar at all times, use STORAGE ADMINISTRATOR when OOB - Follow-up with Neurosurgery on [...] M.D., M.P.H. Neurological Surgery Resident PGY-1 Pager: [phone] Associated attestation - Fidelina Shields MD - 09/19/2017 1:36 PM PDTAttending: I saw and examined Berlin Temple ([id number]) with the residents on morning rounds 09/19/17 and agree with the assessment and plan as outlined in this note and participated in the plan aashish of care. Improving po intake, will titrate TPN. Plan to DC TPN tomorrow and transition to PO vs PO + TF depending on calorie counts. Once of restraints will begin looking for placement. Fidelina Shields MD Instructional Support Services Director Division of Trauma, Critical Care and Acute Care Surgery Office: [phone] Pager: [phone] Mary Medrano MD,MPH - 09/18/2017 6:17 AM [...] fluctuant pseudomeningocele,Dobhoff tubein p lace Neck: in [place] collar Respiratory: unlabored on room air CV: [...] TF - Cleared for diet by DIRECTOR OF EMPLOYER SERVICES, tolerating small quantities of purees - Will need repeat CT A/P within 1-2 days #Hypervolemia I&O approaching even. Appears to have been auto-diuresing. - Continue to monitor urine output - Monitor electrolytes, replete prn #Dysphagia DHTreplaced overnight 09/07. TF held due to emesis and possible ileus, aspiration risk. - DIRECTOR OF EMPLOYER SERVICES as able #C7 bilateral lamina fractures #C6-T2 spinous process fractures Neurosurgery consulted. Non-operative management. Upright cervical X-rays completed on 09/14 . - C-collar at all times, use STORAGE ADMINISTRATOR when OOB - Follow-up with Neurosurgery on [...] M.D., M.P.H. Neurological Surgery Resident PGY-1 Pager: [phone] signed by Fidelina Shields MD at 09/19/2017 3:58 PM PDT Associated attestation - Fidelina Shields MD - 09/19/2017 3:58 PM PDTAttending: I saw and examined Berlin Temple ([id number]) with the residents on morning rounds 09/18/17 and agree with the assessment and plan as outlined in this note and participated in the plan aashish of care. Fidelina Shields MD Instructional Support Services Director Division of Trauma, Critical Care and Acute Care Surgery Office: [phone] Pager: [phone] Mary Medrano MD,MPH - 09/17/2017 6:26 AM [...] fluctuant pseudomeningocele,Dobhoff tubein p lace Neck: in [place] collar Respiratory: unlabored on room air CV: [...] TF - Cleared for diet by DIRECTOR OF EMPLOYER SERVICES, tolerating small quantities of purees #Hypervolemia I&O approaching even. Appears to have been auto-diuresing. - Continue to monitor urine output - Monitor electrolytes, replete prn #Dysphagia DHTreplaced overnight 09/07. TF held due to emesis and possible ileus, aspiration risk. - DIRECTOR OF EMPLOYER SERVICES as able #C7 bilateral lamina fractures #C6-T2 spinous process fractures Neurosurgery consulted. Non-operative management. Upright cervical X-rays completed on 09/14 . - C-collar at all times, use STORAGE ADMINISTRATOR when OOB - Follow-up with Neurosurgery on [...] M.D., M.P.H. Neurological Surgery Resident PGY-1 Pager: [phone] signed by Fidelina Shields MD at 09/17/2017 2:29 PM PDT Associated attestation - Fidelina Shields MD - 09/17/2017 2:29 PM PDTAttending: I saw and examined Berlin Temple ([id number]) with the residents on morning rounds 09/17/17 [...] repeat C T abdomen/pelvis. Fidelina Shields MD Instructional Support Services Director Division of Trauma, Critical Care and Acute Care Surgery Office: [phone] Pager: [phone] Venita Pruitt PA-C - 09/16/2017 6:45 AM [...] HEENT: DHT in place, CARRI Neck: in [place] collar Respiratory: CTA bilaterally, lungs symmetrical, equal [...] - Haldol 5mg q12hr prn - DIRECTOR OF EMPLOYER SERVICES: severe cognitive deficits - continue DIRECTOR OF EMPLOYER SERVICES therapy #Bilious emesis #Ileus #Aspiration #Leukocytosis - bilious emesis overnight, trickle tube feeds stopped; will restart tube feeds slowly this afternoon and determine tolerance - hx of ileus during hospitalization, NG removed 09/14 - Strict NPO per DIRECTOR OF EMPLOYER SERVICES - Bowel meds via DHT - TPN continued #Hypervolemia I&O approaching even. Appears to have been auto-diuresing. - Continue to monitor urine output - Monitor electrolytes, replete prn #Dysphagia DHTreplaced overnight 09/07/17. TF held for bilious vomiting last night - DIRECTOR OF EMPLOYER SERVICES as able - eval from 09/13 with oropharyngeal dysphagia - strict NPO #C7 bilateral lamina fractures #C6-T2 spinous process fractures Neurosurgery consulted. Non-operative management. - C-collar at all times, use STORAGE ADMINISTRATOR when OOB - Upright films in STORAGE ADMINISTRATOR completed yesterday - follow up in 6 [...] need eventual placement. Venita Pruitt PA-C [place] [phone] [place] [facility] [phone] Associated attestation - Fidelina Shields MD - 09/17/2017 3:42 PM PDTAttending: I saw and examined Berlin Temple with Venita Pruitt PA-C on morning rounds 09/16/17 and ag ree with the assessment and plan as outlined in this note and participated in the planning o f care. Ileus precludes advancing tube feeds. Will allow po as tolerated and continue tpn. Fidelina Shields MD Instructional Support Services Director Division of Trauma, Critical Care and Acute Care Surgery Office: [phone] Pager: [phone] Dallin Bourgeois MD - 09/15/2017 12:06 PM [...] Mr. Temple. Dallin Bourgeois MD Neurosurgery PGY1 [id number] signed by Dallin Bourgeois MD at 09/15/2017 [...] tube in place and EOMI Neck: in [place] collar Respiratory: CTA bilaterally, lungs symmetrical, equal [...] - Haldol 5mg q12hr prn - DIRECTOR OF EMPLOYER SERVICES: severe cognitive deficits - continue DIRECTOR OF EMPLOYER SERVICES therapy #Bilious emesis #Ileus #Aspiration #Leukocytosis On [...] with resolving ileus - trickle feeds per loader operator supervisor recommendations started today - TPN consult [...] and possible ileus, aspiration risk. - DIRECTOR OF EMPLOYER SERVICES as able - eval from 09/13 with oropharyngeal dysphagia - strict NPO #C7 bilateral lamina fractures #C6-T2 spinous process fractures Neurosurgery consulted. Non-operative management. - C-collar at all times, use STORAGE ADMINISTRATOR when OOB - Upright films in STORAGE ADMINISTRATOR completed yesterday - will notify NSG for [...] withdrawal and using olanzapine and haldol. DIRECTOR OF EMPLOYER SERVICES will reeval to day. Continue strict NPO and will start TPN. Off abx. EM CUNNINGHAM MD [facility] [address] [place] [address] Mary Medrano MD,MPH - 09/14/2017 6:39 AM [...] fluctuant pseudomeningocele,Dobhoff tubein p lace Neck: in [place] collar Respiratory: sats stable room air, unlabored, [...] and possible ileus, aspiration risk. - DIRECTOR OF EMPLOYER SERVICES as able #C7 bilateral lamina fractures #C6-T2 spinous process fractures Neurosurgery consulted. Non-operative management. - C-collar at all times, use STORAGE ADMINISTRATOR when OOB - Upright films in STORAGE ADMINISTRATOR when able Resolved or chronic issues/Plan: #BIG [...] M.D., M.P.H. Neurological Surgery Resident PGY-1 Pager: [phone] signed by Shlomo Rosenthal MD at 09/16/2017 11:14 AM PDT Associated attestation - Shlomo Rosenthal MD - 09/16/2017 11:14 AM PDTFormatting of this note m ight be different from the original. I saw and examined Berlin Temple ([id number]) with the TRAUMA team on 09/14/2017. I [...] encounter (HCC) Traumatic hemorrhagic shock, initial encounter ([facility]) Shlomo Rosenthal MD Clerk Of [address] Division of Trauma and Critical Care Mary [...] NG tub es in place Neck: in [place] collar Respiratory: sats stable room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 MDJB/TAHIRLDD: 11/05/2017 20:38:01DT: 11/06/2017 | | 00:27:33Job #: [id number] | |HATTIE/MODL | | | | | | /[id number] | + + CT HEAD WO CONTRAST [...] Surgeon: Magdiel | | | MD Dayami Bottle Line Worker: Rg Aiken MD Pre-op Diagnosis: | | [...] PGY-4 Neurological Surgery Pager | | | [phone] | | + + + CAPILLARY BLOOD [...] [facility] | [address] | [place], [place] | | | [place] POINT OF CARE | [facility] | [address] | | | TESTS | | | [...] [facility] | [address] | [place], [place] | | | GLORIA GE[place]O OF [facility] | [facility] | [address] | | | TESTS | | | [...] | + + | Service Account, Kostas Pileus Software In Interface - 11/05/2017 11:31 AM PDT [...] [facility] | | | | | [facility] | | | | + [...] CENTER LABORATORY | [address] | [place] [address] | | | SERVICES, CORE | [address] | | | + + + + + MAGNESIUM, PLASMA (11/05/2017 6:16 AM PDT) + +-------+ + + + | Component | Value | Ref Range | Performed | Pathologist | | | | | At | Signature | + +-------+ + + + | MAGNESIUM,P | 2.0 | 1.6 - 2.6 mg/dL | [facility] | | | LASMA | | | [...] [facility] | [address] | [place] [address] | | | SERVICES, CORE | [address]ARK [...] | | | LABORATORY | | | SWAZI | | | SERVICES, | | | [...] | + + + + + | [facility] | [address] [facility] | [place] [address] | | | NATALEE WORTHINGTON | VILMA [...] | + + + + + | [facility] | [address] | [place] [address] | | | SERVICES, CORE | VILMA [...] + + + + | PRODUCT | [id number] | | [facility] | | | UNIT [...] + + + + | EXPIRATION | [id number] | | [facility] | | | DATE [...] + + + + | BLOOD | [id number] | | [facility] | | | PRODUCT [...] [facility] | [address] | [place] [address] | | | SERVICES, | [address] [...] + + + + | PRODUCT | [id number] | | [facility] | | | UNIT [...] + + + + | EXPIRATION | [id number] | | [facility] | | | DATE [...] + + + + | BLOOD | [id number] | | [facility] | | | PRODUCT [...] [facility] | [address] | [place] [address] | | | SERVICES, | [address] [...] SE[facility] | [address] | [place] [address] | | | SERVICES, CORE | [address] [...] [facility] | [address] | [place] [address] | | | SERVICES, | [address] [...] | + + + + + | [facility] | [address] | [place] [address] | | | SERVICES, | [address] [...] CENTER LABORATORY | [address] | [place] [address] | | | ELIN, NATALEE | VILMA [...] GEET OF | [address] | [place], [place] | | | CARDIOLOGY | [address] | [address] | | + + + + + [...] [facility] | [address] | [place] [address] | | | SERVICES, CORE | [address] [...] | + + + + + | [facility] | [address] | [place] [address] | | | SERVICES, CORE | VILMA [...] | + + + + + | [facility] - | [address] | [place] [address] | | | [place] | | | [...] | + + + + + | [facility] | [address] | [place] [address] | | | SERVICES, CORE | VILMA [...] [facility] | [address] | [place] [address] | | | SERVICES, CORE | [address]ARK [...] | | | LABORATORY | | | SWAZI | | | SERVICES, | | | [...] + | [facility] | [address] | [place] [address] | | | SERVICES, CORE | VILMA [...] | + + + + + | [facility] | [address] | [place] [address] | | | SERVICES, CORE | VILMA [...] [facility] | [address] | [place] [address] | | | SERVICES, CORE | PARK [...] | | | LABORATORY | | | SWAZI | | | SERVICES, | | | [...] [facility] | [address] | [place] [address] | | | SERVICES, CORE | [address] [...] [facility] | [address] | [place] [address] | | | SERVICES, NATALEE | VILMA [...] | | | LABORATORY | | | SWAZI | | | SERVICES, | | | [...] the MDRD equation recommended by the | [facility] | | National Kidney Disease Education Program. [...] | + + + + + | [facility] | [address] | [place] [address] | | | SERVICES, CORE | VILMA [...] DEPT OF | [address] | [place], [place] | | | CARDIOLOGY | [facility] | [address] | | + + + + + [...] [facility] | [address] | [place] [address] | | | ELIN, NATALEE | VILMA [...] | | | LABORATORY | | | SWAZI | | | SERVICES, | | | [...] | + + + + + | [facility] | [address] [facility] | [place] [address] | | | SERVICES, CORE | VILMA [...] [facility] DEPT OF | [address] [facility] | [place], [place] | | | CARDIOLOGY | [address] | [address] | | + + + + + [...] | | | LABORATORY | | | SWAZI | | | SERVICES, | | | [...] | + + + + + | [employer] [facility] | [address] | [place] [address] | | | SERVICES, CORE | VILMA [...] CENTER LABORATORY | [address] | [place] [address] | | | SERVICES, CORE | VILMA [...] [facility] | [address] | [place], [place] | | | [place] [facility]INT OF CARE | [address] | [address] | | | TESTS | | | [...] | + + + + + | [facility] | [address] | [place] [address] | | | SERVICES, CORE | VILMA [...] | | | LABORATORY | | | SWAZI | | | SERVICES, | | | [...] | + + + + + | [facility] | [address] [facility] | [place] [address] | | | SERVICES, CORE | VILMA [...] [facility] | [address] | [place], [place] | | | [place] POINT OF CARE | [address] | [address] | | | TESTS | | | [...] | + + + + + | [facility] | [address] | [place] [address] | | | SERVICES, NATALEE | VILMA [...] | | | LABORATORY | | | SWAZI | | | SERVICES, | | | [...] | + + + + + | [facility] | [address] | [place] [address] | | | SERVICES, CORE | VILMA [...] [facility] | [address] | [place], [place] | | | [place] [facility]INT OF CARE | [address] | [address] | | | TESTS | | | [...] + | [facility] | [address] [facility] | [place], [place] | | | CARDIOLOGY | [address] | [address] | | + + + + + [...] [facility] | [address] | [place], [place] | | | GLORIA GENAO OF [employer] | [facility] | [address] | | | TESTS | | | [...] [facility] | [address] | [place], [place] | | | [place] POINT OF CARE | [facility] | [address] | | | TESTS | | | [...] CENTER LABORATORY | [address] | [place] [address] | | | NATALEE WORTHINGTON | VILMA [...] + | [facility] - | [address] | [place] [address] | | | [place] | | | [...] [facility] | [address] | [place] [address] | | | ELIN, NATALEE | [address]ARK [...] [facility] | [address] | [place] [address] | | | SERVICES, CORE | VILMA [...] | + + + + + | [facility] | [address] [facility] | [place] [address] | | | SERVICES, CORE | [address] [...] | | | LABORATORY | | | SWAZI | | | SERVICES, | | | [...] CENTER LAB[facility]ATORY | [address] | [place] [address] | | | SERVICES, CORE | [address] | | | + + + + + MAGNESIUM, PLASMA (10/28/2017 5:29 AM PDT) + +-------+ + + + | Component | Value | Ref Range | Performed | Pathologist | | | | | At | Signature | + +-------+ + + + | MAGNESIUM,P | 1.8 | 1.6 - 2.6 mg/dL | [facility] | | | [facility] | | | [...] [facility] | [address] | [place] [address] | | | ELIN, NATALEE | VILMA [...] - [facility] | [address] | [place], [place] | | | [place] [facility]INT OF CARE | [address] | [address] | | | TESTS | | | [...] [facility] | [address] | [place], [place] | | | [place] OF [facility] | [address] | [address] | | | TESTS | | | [...] At | + + + | EXAM: SC CHEST PICC LINE CHECK HISTORY: picc done [...] Interface - 10/27/2017 6:29 PM PDT EXAM: SC CHEST | | PICC LINE CHECK HISTORY: [...] correct | | | patient, procedure, equipment, residential direct support professional and site/side marked as | [...] vein. Catheter lot number: | | | [id number] with a length of 55 cm was [...] [facility] | [address] | [place], [place] | | | GLORIA GENAO OF [employer] | [address] | [address] | | | TESTS | | | [...] DEPT OF | [address] | [place], [place] | | | CARDIOLOGY | [address] | [address] | | + + + + + [...] [facility] | [address] | [place], [place] | | | [facility] POINT OF CARE | [address] | [address] | | | TESTS | | | [...] [facility] | [address] | [place] [address] | | | NATALEE WORTHINGTON | VILMA [...] | | | LABORATORY | | | SWAZI | | | SERVICES, | | | [...] | + + + + + | [facility] | [address] | [place] [address] | | | SERVICES, CORE | VILMA [...] [facility] | [address] | [place], [place] | | | [facility] [facility]INT OF CARE | [address] | [address] | | | TESTS | | | [...] [facility] | [address] | [place], [place] | | | [facility] [facility]INT OF CARE | [address] | [address] | | | TESTS | | | [...] + + + | [facility] | [address] | [place], [place] | | | [facility] [facility]INT OF CARE | [address] | [address] | | | TESTS | | | [...] | + + + + + | [facility] | [address] | [place] [address] | | | SERVICES, CORE | VILMA [...] | | | LABORATORY | | | SWAZI | | | SERVICES, | | | [...] CENTER LAB[facility]ATORY | [address] | [place] [address] | | | SERVICES, CORE | VILMA [...] [facility] | [address] | [place], [place] | | | [place] POINT OF CARE | [address] | [address] | | | TESTS | | | [...] | | | LABORATORY | | | SWAZI | | | SERVICES, | | | [...] CENTER LAB[facility]ORY | [address] | [place] [address] | | | SERVICES, CORE | [address]ARK [...] 87 | 70 - 99 mg/dL | MID [...] [facility] | [address] | [place], [place] | | | GLORIA GENAO OF [employer] | [address] | [address] | | | TESTS | | | [...] [facility] | [address] | [place], [place] | | | CARDIOLOGY | [address] | [address] | | + + + + + [...] [facility] | [address] | [place], [place] | | | [place] POINT OF CARE | [address] | [address] | | | TESTS | | | [...] DEPT OF | [address] | [place], [place] | | | CARDIOLOGY | [address] | [address] | | + + + + + [...] | + + + + + | [facility] | [address] | [place] [address] | | | SERVICES, CORE | [address] [...] + | [facility] - | [address] | [place] [address] | | | [place] | | | [...] [facility] | [address] [facility] | [place] [address] | | | NATALEE WORTHINGTON | VILMA [...] [facility] | [address] | [place] [address] | | | SERVICES, CORE | VILMA [...] [facility] | [address] | [place] [address] | | | NATALEE WORTHINGTON | VILMA [...] [facility] | [address] | [place] [address] | | | SERVICES, CORE | [address] [...] | + + + + + | [facility] | [address] | [place] [address] | | | SERVICES, CORE | VILMA [...] [facility] | [address] | [place] [address] | | | SERVICES, CORE | PARK [...] CENTER LABORATORY | [address] | [place] [address] | | | SERVICES, CORE | [address] [...] [facility] | [address] | [place] [address] | | | SERVICES, CORE | [address]ARK [...] [facility] | [address] | [place] [address] | | | SERVICES, CORE [...] [facility] | [address] | [place] [address] | | | SERVICES, CORE | PARK [...] | | | LABORATORY | | | SWAZI | | | SERVICES, | | | [...] [facility] | [address] [facility] | [place] [address] | | | SERVICES, CORE | [address] [...] | | | correct patient, procedure, equipment, residential direct support professional and site/side | | | [...] | area Basilic vein. Catheter lot number: [id number] with a length of 55 | | [...] At | + + + | EXAM: SC CHEST 1 VIEW HISTORY: PICC placed-pt ready. [...] Interface - 10/24/2017 3:43 PM PDT EXAM: SC CHEST 1 | | VIEW HISTORY: PICC [...] + + | [facility] | [address] [facility] | [place], [place] | | | [place] [facility] | [facility] | [address] | | | TESTS | | | [...] | | Surgical Critical Care, PGY7 Pager: [phone] | | + + + CAPILLARY BLOOD [...] [facility] | [address] | [place], [place] | | | [place] POINT OF CARE | [address] | [address] | | | TESTS | | | [...] [facility] | [address] | [place], [place] | | | [place] POINT OF CARE | [address] | [address] | | | TESTS | | | [...] | | | LABORATORY | | | SWAZI | | | SERVICES, | | | [...] | + + + + + | [facility] | [address] [facility] | [place] [address] | | | NATALEE WORTHINGTON | VILMA [...] + + + + + | [facility] | [address] [facility] | [place] [address] | | | ELIN, NATALEE | VILMA [...] [facility] | [address] | [place], [place] | | | GLORIA GENAO OF CARE | [address] | [address] | | | TESTS | | | [...] | + + + + + | [facility] | [address] [facility] | [place] [address] | | | SERVICES, CORE | VILMA [...] | | | LABORATORY | | | SWAZI | | | SERVICES, | | | [...] | + + + + + | [facility] | [address] | [place] [address] | | | SERVICES, CORE | [address]ARK [...] DEPT OF | [address] | [place], [place] | | | CARDIOLOGY | [address] | [address] | | + + + + + IR GASTROSTOMY TUBE EXCHANGE (10/22/2017 2:42 PM PDT) + + | Specimen | + + | | + + + + + | Narrative | Performed At | + + + | Procedure: Gastrostomy tube exchange Primary attending | SELENA | | cane splicer: Shade Goodwin M.D. Preoperative diagnosis: | RADIOLOGY VOICE | | Malfunctioning Gastrostomy tube Postoperative diagnosis: Same | RECOGNITION | | Operations: Operation 1. Removal of existing Gastrostomy tube | | | over a guide wire Operation 2. Placement of 24 Mauritian GABRIEL | | | gastrostomy over guide [...] a stiff glide wire the new 24 Mauritian gastrostomy tube was | | | inserted. [...] Procedure: | | Gastrostomy tube exchangePrimary attending cane splicer: Shade Goodwin, | | BrynPreoperative diagnosis: Malfunctioning Gastrostomy tubePostoperative diagnosis: | | SameOperations:Operation 1. Removal of existing Gastrostomy tube over a guide | | wireOperation 2. Placement of 24 Mauritian GABRIEL gastrostomy over guide wireNo sedation was [...] glide wire the | | new 24 Mauritian gastrostomy tube was inserted. The position of [...] stiff g lide wire the new 24 Mauritian | |gastrostomy tube was inserted. The position [...] Note | + + | Service Account, [employer] Res In Interface - 10/22/2017 10:34 AM [...] [facility] | [address] [facility] | [place], [place] | | | CARDIOLOGY | [address] | [address] | | + + + + + [...] | |Significant results were discussed with Dr. Tlaavera on 10/22/2017 4:30 AM by Dae Izaguirre [...] | + + + + + | [facility] | [address] [facility] | [place] [address] | | | SERVICES, CORE | VILMA [...] | | | LABORATORY | | | SWAZI | | | SERVICES, | | | [...] | + + + + + | [facility] | [address] | [place] [address] | | | SERVICES, CORE | [address] | | | + + + + + 12 LEAD ECG (10/21/2017 2:12 PM PDT) + + + + + + | Component | Value | Ref Range | Performed | Pathologist | | | | | At | Signature | + + + + + + | VENTRICULAR | 61 | bpm | [facility] | | | RATE | | [...] [facility] | [address] [facility] | [place], [place] | | | CARDIOLOGY | [address] | [address] | | + + + + + [...] | | | LABORATORY | | | SWAZI | | | SERVICES, | | | [...] [facility] | [address] | [place] [address] | | | NATALEE [place] | PARK [...] [facility] | [address] | [place] [address] | | | SERVICES, NATALEE | VILMA [...] GEET OF | [address] | [place], [place] | | | CARDIOLOGY | [address] | [address] | | + + + + + [...] | + + + + + | [facility] | [address] [facility] | [place] [address] | | | SERVICES, CORE | PARK [...] | | | LABORATORY | | | SWAZI | | | SERVICES, | | | [...] [facility] | [address] | [place] [address] | | | SERVICES, CORE | VILMA [...] DEPT | | | IMPRESSION | by: AJYA DE LOS SANTOS | | OF | [...] | + + + + + | [facility] | [address] [facility] | [place], [place] | | | CARDIOLOGY | [address] | [address] | | + + + + + [...] | | | LABORATORY | | | SWAZI | | | SERVICES, | | | [...] the MDRD equation recommended by the | [facility] | | National Kidney Disease Education Program. [...] | + + + + + | [facility] | [address] | [place] [address] | | | SERVICES, CORE | PARK [...] [facility] | [address] [address] | [place] [address] | | | NATALEE WORTHINGTON | VILMA [...] OF | [address] | [place], [place] | | | CARDIOLOGY | [facility] | [address] | | + + + + + [...] | | | LABORATORY | | | SWAZI | | | SERVICES, | | | [...] CENTER LABORATORY | [address] | [place] [address] | | | ELIN, NATALEE | PARK [...] | + + + + + | [facility] | [address] | [place] [address] | | | SERVICES, CORE | VILMA [...] Note | + + | Service Account, Karma Platform Res In Interface - 10/15/2017 3:58 PM [...] DEPT OF | [address] | [place], [place] | | | CARDIOLOGY | [address] | [address] | | + + + + + [...] [facility] | [address] | [place], [place] | | | [place]INT OF CARE | [address] | [address] | | | TESTS | | | [...] | + + + + + | [facility] | [address] | [place] [address] | | | SERVICES, NATALEE | VILMA [...] MAR[facility] | [address] | [place], [place] | | | GLORIA GENAO OF CARE | [address] | [address] | | | TESTS | | | [...] DEPT OF | [address] | [place], [place] | | | CARDIOLOGY | [address] | [address] | | + + + + + [...] [facility] | [address] [facility] | [place] [address] | | | NATALEE WORTHINGTON | PARK [...] | | | LABORATORY | | | SWAZI | | | SERVICES, | | | [...] | + + + + + | [facility] | [address] | [place] [address] | | | SERVICES, CORE | PARK [...] CENTER LABORATORY | [address] | [place] [address] | | | SERVICES, CORE | VILMA [...] (H) | 70 - 99 mg/dL | [facility] - | | | GLUCOSE, | | [...] P[facility]ETT | [address] | [place], [place] | | | [place] POINT OF CARE | [address] | [address] | | | TESTS | | | [...] MARQU[facility] | [address] | [place], [place] | | | [place] POINT OF CARE | [address] | [address] | | | TESTS | | | [...] [place] [facility] | [address] | [place] [address] | | | SERVICES, CORE | PARK [...] | | | LABORATORY | | | SWAZI | | | SERVICES, | | | [...] | + + + + + | [facility] | [address] [facility] | [place] [address] | | | SERVICES, [facility] | [address] | | | + + + + + OPERATION RECORD (10/12/2017 8:50 PM PDT) + + | Procedure Note | + + | Pilar Cotto MD - 10/12/2017 8:50 PM PDT Date of Service: 10/12/2017 | | Attending Surgeon: Chaz Munoz MD Bottle Line Worker(s): Radnell Dixon M.D., | | fellow. George Noriega [...] informed consent was | | obtained.Procedure: Mr. Tempel was identified in the preoperative area by [...] saline. We then | | placed a 19-Mauritian drain deep into the abscess cavity, tracking [...] 10/12/2017 19:50:06DT: 10/12/2017 20:50:54Job #: | | [id number] | + + X-RAY PORTABLE CHEST 1 VIEW (10/12/2017 7:50 PM PDT) + + | Specimen | + + | | + + + + + | Narrative | Performed At | + + + | EXAM: SC CHEST 1 VIEW HISTORY: Evaluate endotracheal tube [...] Note | + + | Service Account, RadiPhantom Pay Res In Interface - 10/13/2017 9:04 AM PDT EXAM: SC CHEST 1 | | VIEW HISTORY: Evaluate [...] + + | [facility] | [address] [facility] [address] [address] | [place], [place] | | | [place] POINT OF [facility] | [address] | [address] | | | TESTS | | | [...] Wen | | MD Dmitriy Dictation initiated: Dea Izaguirre MD 10/12/2017 9:04 AM | | [...] CENTER LABORATORY | [address] | [place] [address] | | | SERVICES, CORE | PARK [...] | | | LABORATORY | | | SWAZI | | | SERVICES, | | | [...] | + + + + + | [facility] | [address] | [place] [address] | | | NATALEE WORTHINGTON | VILMA [...] CENTER LABORATORY | [address] | [place] [address] | | | SERVICES, NATALEE | PARK [...] DEPT OF | [address] | [place], [place] | | | CARDIOLOGY | [address] | [address] | | + + + + + [...] DEPT OF | [address] | [place], [place] | | | CARDIOLOGY | [address] | [address] | | + + + + + [...] [facility] | [address] | [place] [address] | | | SERVICES, CORE | VILMA [...] | + + + + + | [facility] | [address] | [place] [address] | | | SERVICES, NATALEE | VILMA [...] | | | LABORATORY | | | SWAZI | | | SERVICES, | | | [...] | + + + + + | [facility] | [address] | [place] [address] | | | SERVICES, NATALEE | [address] | | | + + + + + PROCEDURE NOTE (10/10/2017 10:00 PM PDT) + + + | Narrative | Performed At | + + + | Darius Link MD 10/12/2017 11:11 AM OPERATIVE REPORT | | | DATE OF OPERATION: 10/10/2017 ATTENDING SURGEON: 1. Dr. Munoz | | | STEEL CHECKER: 1. Darius Link MD INDICATIONS: Dysphagia | | | and need for correction nutrition access PREOPERATIVE DIAGNOSIS: | | | 1.Dysphagia and need for correction nutrition access | | | POSTOPERATIVE DIAGNOSIS: [...] | | | [place] [id number] Chief Resident | | | Neurosurgery | [...] CENTER LABORATORY | [address] | [place] [address] | | | SERVICES, CORE | VILMA [...] | | | LABORATORY | | | SWAZI | | | SERVICES, | | | [...] | + + + + + | [facility] | [address] [facility] | [place] [address] | | | NATALEE WORTHINGTON | VILMA [...] [facility] | [address] | [place] [address] | | | SERVICES, CORE | [address] | | | + + + + + OPERATION RECORD (10/10/2017 12:40 PM PDT) + + | Procedure Note | + + | Magdiel Stock MD - 10/10/2017 12:40 PM PDT Date of Service: 10/10/2017 Attending | | Surgeon: Magdiel Stock MD Bottle Line Worker(s): Cecilia Hernandez, | | . Preoperative [...] This is a 67-year-old male. Please see [facility] for full details. He | [...] encounter.Sonal Nunez MDMID [facility] [id number] [facility] | | [place] [id number] Orina, MDFA/MODLDD: | | 10/10/2017 11:52:15DT: 10/10/2017 12:40:41Job #: [id number] | | | | | |I was present for the critical portions of the procedure as described in the note for this encounter. | | | |Magdiel Stock MD | | | |Magdiel Stock MD | |[address] | |[address] | |[facility] | |[place] [address] | |[phone] | | | | | |Magdiel Stock MD | |FA/MODL | | | | | | /[id number] | + + X-RAY ABDOMEN 1 VIEW [...] | + + + + + | [facility] - | [address] | [place] [address] | | | [place] | | | | + + + [...] + | [facility] - | [address] | [place] [address] | | | [place] | | | [...] Gram Stain: No squamous epithelial cells | [facility] | | Many polymorphonuclear cells No organisms seen | | + + + + + + + + | Performing | Address | City/State/Zipcode | Phone Number | | Organization | | | | + + + + + | [facility] | [address] | [place] [address] | | | [place] | | | [...] + | [facility] - | [address] | [place] [address] | | | [facility] | | | | + [...] | + + + + + | [facility] - | [address] | [place] [address] | | | [place] | | | [...] Gram Stain: No squamous epithelial cells | [place] | | Many polymorphonuclear cells No organisms seen | | + + + + + + + + | Performing | Address | City/State/Zipcode | Phone Number | | Organization | | | | + + + + + | [facility] | [address] | [place] [address] | | | [place] | | | [...] + | [facility] - | [address] | [place] [address] | | | [place] | | | [...] Gram Stain: No squamous epithelial cells | [place] | | Few polymorphonuclear cells No organisms seen | | + + + + + + + + | Performing | Address | City/State/Zipcode | Phone Number | | Organization | | | | + + + + + | [facility] - | [address] | [place] [address] | | | [place] | | | | + + + [...] + | [facility] - | [address] | [place] [address] | | | [place] | | | [...] + | [facility] - | [address] | [place] [address] | | | [place] | | | [...] Gram Stain: No squamous epithelial cells | [place] | | Moderate polymorphonuclear cells No organisms seen | | + + + + + + + + | Performing | Address | City/State/Zipcode | Phone Number | | Organization | | | | + + + + + | [facility] | [address] | [place] [address] | | | [place] | | | [...] detected | [facility] - | | | [place] | + + + + + + + + | Performing | Address | City/State/Zipcode | Phone Number | | Organization | | | | + + + + + | [facility] - | [address] | [place] [address] | | | [place] | | | | + + + [...] + | [facility] | [address] | [place] [address] | | | [place] | | | [...] + | [facility] - | [address] | [place] [address] | | | [place] | | | [...] + | [facility] - | [address] | [place] [address] | | | [place] | | | | + + + [...] + | [facility] - | [address] | [place] [address] | | | [place] | | | [...] Gram Stain: No squamous epithelial cells | [facility] | | Moderate polymorphonuclear cells No organisms seen | | + + + + + + + + | Performing | Address | City/State/Zipcode | Phone Number | | Organization | | | | + + + + + | [facility] - | [address] | [place] [address] | | | [place] | | | [...] detected | [facility] - | | | [place] | + + + + + + + + | Performing | Address | City/State/Zipcode | Phone Number | | Organization | | | | + + + + + | [facility] - | [address] | [place] [address] | | | [place] | | | | + + + [...] [facility] | [address] | [place] [address] | | | SERVICES, CORE | [address]ARK [...] | + + + + + | [facility] | [address] | [place] [address] | | | SERVICES, CORE | VILMA [...] [facility] | [address] | [place] [address] | | | SERVICES, CORE | PARK [...] | | | LABORATORY | | | SWAZI | | | SERVICES, | | | [...] [facility] | [address] | [place] [address] | | | SERVICES, CORE | VILMA [...] DEPT OF | [address] | [place], [place] | | | CARDIOLOGY | [address] | [address] | | + + + + + [...] + + + + | PRODUCT | [id number] | | [facility] | | | UNIT [...] + + + + | EXPIRATION | [id number] | | [facility] | | | DATE [...] + + + + | BLOOD | [id number] | | [facility] | | | PRODUCT [...] | + + + + + | [facility] | [address] | [place] [address] | | | SERVICES, | [address] [...] + + + + | PRODUCT | [id number] | | [facility] | | | UNIT [...] + + + + | EXPIRATION | [id number] | | [facility] | | | DATE [...] + + + + | BLOOD | [id number] | | [facility] | | | PRODUCT [...] [facility] | [address] | [place] [address] | | | SERVICES, | [address] [...] LABORATORY | [address] | [place] [address] | | | SERVICES, | [address] [...] | + + + + + | [facility] | [address] | [place] [address] | | | SERVICES, | [address] [...] [facility] | [address] | [place] [address] | | | SERVICES, | [address] [...] CENTER LABORATORY | [address] | [place] [address] | | | ELIN, [facility] | [address] | | | + [...] + | [facility] | [address] [facility] | [place], [place] | | | CARDIOLOGY | [address] | [address] | | + + + + + [...] [facility] | [address] | [place], [place] | | | [place] POINT OF CARE | [facility] | [address] | | | TESTS | | | [...] [facility] | [address] | [place] [address] | | | SERVICES, NATALEE | PARK [...] [facility] | [address] | [place] [address] | | | SERVICES, CORE | PARK [...] | | | LABORATORY | | | SWAZI | | | SERVICES, | | | [...] CENTER LABORATORY | [address] | [place] [address] | | | NATALEE WORTHINGTON | VILMA [...] [facility] | [address] | [place], [place] | | | [place] POINT OF CARE | [address] | [address] | | | TESTS | | | [...] [facility] | [address] | [place], [place] | | | [place] POINT OF CARE | [address] | [address] | | | TESTS | | | [...] [facility] | [address] | [place], [place] | | | GLORIA GENAO OF CARE | [address] | [address] | | | TESTS | | | [...] [facility] | [address] | [place], [place] | | | GLORIA GENAO OF CARE | [address] | [address] | | | TESTS | | | [...] [facility] | [address] | [place], [place] | | | [place] POINT OF CARE | [address] | [address] | | | TESTS | | | [...] [facility] | [address] | [place] [address] | | | NATALEE WORTHINGTON | VILMA [...] [facility] | [address] [facility] | [place] [address] | | | SERVICES, CORE | [address] [...] | | | LABORATORY | | | SWAZI | | | SERVICES, | | | [...] | + + + + + | [facility] | [address] | [place] [address] | | | SERVICES, CORE | VILMA [...] [facility] | [address] | [place], [place] | | | JOHN GENAO | [facility] | [address] | | | TESTS | | | [...] - [facility] | [address] | [place], [place] | | | GLORIA GENAO OF [facility] | [address] | [address] | | | TESTS | | | [...] DEPT OF | [address] | [place], [place] | | | CARDIOLOGY | [address] | [address] | | + + + + + [...] [facility] | [address] | [place], [place] | | | GLORIA GENAO OF GM | [address] | [address] | | | TESTS | | | [...] [facility] | [address] | [place] [address] | | | NATALEE WORTHINGTON | VILMA [...] CENTER LABORATORY | [address] | [place] [address] | | | NATALEE WORTHINGTON | [address]ARK [...] | | | LABORATORY | | | SWAZI | | | SERVICES, | | | [...] | + + + + + | [facility] | [address] | [place] [address] | | | SERVICES, CORE | PARK [...] [facility] | [address] | [place], [place] | | | GLORIA GENAO OF CARE | [address] | [address] | | | TESTS | | | [...] [facility] | [address] | [place], [place] | | | GLORIA GENAO OF CARE | [address] | [address] | | | TESTS | | | [...] [facility] | [address] | [place], [place] | | | [place]ICK POINT OF CARE | [address] | [address] | | | TESTS | | | [...] [facility] | [address] | [place], [place] | | | GLORIA GENAO OF CARE | [address] | [address] | | | TESTS | | | [...] + | [facility] OF | [address] [address] | [place], [place] | | | CARDIOLOGY | [address] | [address] | | + + + + + [...] CENTER LABORATORY | [address] | [place] [address] | | | ELIN, NATALEE | VILMA [...] | + + + + + | [facility] | [address] | [place] [address] | | | SERVICES, CORE | VILMA [...] | | | LABORATORY | | | SWAZI | | | SERVICES, | | | [...] CENTER LABORATORY | [address] | [place] [address] | | | SERVICES, CORE | VILMA [...] [facility] | [address] | [place], [place] | | | CH[place] POINT OF CARE | [address] | [address] | | | TESTS | | | [...] [facility] | [address] | [place], [place] | | | GLORIA GENAO OF CARE | [address] | [address] | | | TESTS | | | [...] [facility] | [address] | [place], [place] | | | GLORIA GENAO OF CARE | [address] | [address] | | | TESTS | | | [...] [facility] | [address] | [place], [place] | | | [place] POINT OF CARE | [address] | [address] | | | TESTS | | | [...] [facility] | [address] | [place], [place] | | | GLORIA GENAO OF GM | [address] | [address] | | | TESTS | | | [...] CENTER LAB[facility]ATORY | [address] | [place] [address] | | | SERVICES, CORE | PARK [...] [facility] | [address] | [place] [address] | | | NATALEE WORTHINGTON | VILMA [...] | | | LABORATORY | | | SWAZI | | | SERVICES, | | | [...] | + + + + + | [facility] | [address] | [place] [address] | | | SERVICES, NATALEE | VILMA [...] R[facility] | [address] | [place], [place] | | | GLORIA GENAO OF CARE | [facility] | [address] | | | TESTS | | | [...] [facility] | [address] | [place], [place] | | | [place] POINT OF CARE | [address] | [address] | | | TESTS | | | [...] | + + + + + | [facility] | [address] | [place] [address] | | | SERVICES, CORE | VILMA [...] by | | | | | | [employer],500 | | | | | | Rogelio Pickard, [facility],[place] | | | | | | [id number] | | | | | | [phone].[employer]. | | | | | | Gui btut MD, | | | | | | [...] [facility] | [address] | [place], [place] | | | [facility] | | [address] | | + + + + + [...] [facility] | [address] | [place] [address] | | | SERVICES, CORE | PARK [...] [facility] | [address] | [place] [address] | | | SERVICES, CORE | PARK [...] modified from | [facility] | | original finish machine tender's approved specifications. The performance | LABORATORY | | of the GRAPPLE YARDER OPERATOR HIV Combo test, with or without confirmation, was not | SERVICES, | | tested in pediatric patients less than 2 years of age. [facility] | SPECIAL IMM + | | guidelines [...] [facility] | [address] | [place] [address] | | | SERVICES, SPECIAL | VILMA [...] [facility] | [address] | [place], [place] | | | CH[place]ICK POINT OF CARE | [address] | [address] | | | TESTS | | | [...] [facility] | [address] | [place], [place] | | | GLORIA GNEAO OF CARE | [facility] | [address] | | | TESTS | | | [...] [facility] | [address] | [place] [address] | | | ELIN, NATALEE | PARK [...] [facility] | [address] | [place] [address] | | | SERVICES, CORE | PARK [...] | | | LABORATORY | | | SWAZI | | | SERVICES, | | | [...] CENTER LABORATORY | [address] | [place] [address] | | | ELIN, CORE | VILMA [...] [facility] | [address] | [place] | | | [place] OF [facility] | [facility] | [address] | | | TESTS | | | [...] [facility] | [address] | [place], [place] | | | CH[place] POINT OF CARE | [address] | [address] | | | TESTS | | | [...] DEPT OF | [address] | [place], [place] | | | CARDIOLOGY | [address] | [address] | | + + + + + [...] At | + + + | EXAM: SC CHEST 1 VIEW HISTORY: Evaluate PICC placement [...] Interface - 10/02/2017 2:07 PM PDT EXAM: SC CHEST 1 | | VIEW HISTORY: Evaluate [...] | | | POC | | | GLORAI GENAO | | | | | | [...] [facility] | [address] | [place], [place] | | | GLORIA GENAO OF CARE | [address] | [address] | | | TESTS | | | | + + + + + X-RAY PORTABLE CHEST 1 VIEW (10/02/2017 8:56 AM PDT) + + | Specimen | + + | | + + + + + | Narrative | Performed At | + + + | EXAM: SC CHEST 1 VIEW HISTORY: new leukocytosis, eval [...] Interface - 10/02/2017 10:27 AM PDT EXAM: SC CHEST 1 | | VIEW HISTORY: new [...] [facility] | [address] | [place], [place] | | | GLORIA GENAO OF CARE | [address] | [address] | | | TESTS | | | [...] | + + + + + | [facility] | [address] | [place] [address] | | | NATALEE WORTHINGTON | VILMA [...] | + + + + + | [facility] | [address] [facility] | [place] [address] | | | SERVICES, CORE | VILMA [...] | | | LABORATORY | | | SWAZI | | | SERVICES, | | | [...] CENTER LAB[facility]ATORY | [address] | [place] [address] | | | SERVICES, CORE | VILMA [...] + + + | [facility] | [address] | [place], [place] | | | GLORIA GENAO OF CARE | [address] | [address] | | | TESTS | | | [...] [facility] | [address] | [place], [place] | | | CH[place]WICK POINT OF CARE | [address] | [address] | | | TESTS | | | [...] Parsons MD Dictation | | | initiated: Edemlira Parsons MD 10/01/2017 2:08 PM | | [...] [facility] | [address] | [place], [place] | | | CH[place]WICK POINT OF CARE | [address] | [address] | | | TESTS | | | [...] Note | + + | Service Account, Family-Mingle In Interface - 10/01/2017 11:34 AM PDT [...] [facility] | [address] | [place], [place] | | | CH[place]ICK POINT OF CARE | [address] | [address] | | | TESTS | | | [...] [facility] | [address] [facility] | [place] [address] | | | NATALEE WORTHINGTON | VILMA [...] | + + + + + | [facility] | [address] [facility] | [place] [address] | | | SERVICES, NATALEE | VILMA [...] | | | LABORATORY | | | SWAZI | | | SERVICES, | | | [...] CENTER LAB[facility]ORY | [address] | [place] [address] | | | SERVICES, CORE | VILMA [...] [facility] | [address] | [place], [place] | | | GLORIA GENAO OF CARE | [address] | [address] | | | TESTS | | | [...] [facility] | [address] | [place], [place] | | | H[place], POINT OF CARE | [address] | [address] | | | TESTS | | | [...] GEET OF | [address] | [place], [place] | | | CARDIOLOGY | [address] | [address] | | + + + + + [...] [facility] | [address] | [place] | | | [place]ICK POINT OF CARE | [address] | [address] | | | TESTS | | | [...] [facility] | [address] | [place] | | | GLORIA GENAO OF CARE | [address] | [address] | | | TESTS | | | [...] [facility] | [address] | [place] [id number] | | | ELIN, NATALEE | PARK [...] [facility] | [address] | [place] [id number] | | | SERVICES, CORE | VILMA [...] | | | LABORATORY | | | SWAZI | | | SERVICES, | | | [...] | + + + + + | [facility] | [address] | [place] [address] | | | SERVICES, NATALEE | VILMA [...] [facility] | [address] | [place], [place] | | | GLORIA GENAO OF [facility] | [facility] | [address] | | | TESTS | | | [...] P[facility]ET[facility] | [address] | [place], [place] | | | [facility] | [address] | [address] | | | TESTS | | | [...] PIYUSH | [address] | [place], [place] | | | GLORIA GENAO OF GM | [address] | [address] | | | TESTS | | | [...] DEPT OF | [address] | [place], [place] | | | CARDIOLOGY | [address] | [address] | | + + + + + [...] [facility] | [address] | [place], [place] | | | [facility] | [address] | [address] | | | TESTS | | | [...] [facility] | [address] | [place] [address] | | | SERVICES, CORE | PARK [...] | | | LABORATORY | | | SWAZI | | | SERVICES, | | | [...] [facility] | [address] | [place] [address] | | | SERVICES, CORE | PARK [...] | + + + + + | [facility] | [address] | [place] [address] | | | SERVICES, CORE | PARK [...] PIYUSH | [address] | [place], [place] | | | GLORIA GENAO OF [facility] | [address] | [address] | | | TESTS | | | [...] PIYUSH | [address] | [place], [place] | | | GLORIA GENAO OF CARE | [facility] | [address] | | | TESTS | | | [...] PICKETT | [address] | [place], [place] | | | GLORIA GENAO OF GM | [address] | [address] | | | TESTS | | | [...] DEPT OF | [address] | [place], [place] | | | CARDIOLOGY | [address] | [address] | | + + + + + [...] - [facility] | [address] | [place], [place] | | | [facility] | [address] | [address] | | | TESTS | | | [...] CENTER [facility] | [address] | [place] [address] | | | SERVICES, CORE | VILMA [...] | + + + + + | [facility] | [address] [facility] | [place] [address] | | | SERVICES, CORE | VILMA [...] | | | LABORATORY | | | SWAZI | | | SERVICES, | | | [...] CENTER [facility] | [address] | [place] [address] | | | SERVICES, CORE | VILMA [...] + + + | SE[facility] | [address] | [place], [place] | | | [facility] [place] [facility] | [address] | [address] | | | TESTS | | | [...] MARQUAM | [address] | [place], [place] | | | GLORIA GENOA OF GM | [address] | [address] | | | TESTS | | | [...] PICKETT | [address] [address] | [place], [place] | | | [facility] CARE | [address] | [address] | | | TESTS | | | [...] [facility] | [address] | [place], [place] | | | [facility]ARE | [address] | [address] | | | TESTS | | | [...] [facility] | [address] | [place] [address] | | | NATALEE WORTHINGTON | PARK [...] [facility] | [address] | [place] [address] | | | SERVICES, CORE | PARK [...] | | | LABORATORY | | | SWAZI | | | SERVICES, | | | [...] the MDRD equation recommended by the | [facility] | | National Kidney Disease Education Program. [...] [facility] | [address] [facility] | [place] [address] | | | NATALEE WORTHINGTON | VILMA [...] [facility] | [address] | [place], [place] | | | GLORIA GENAO OF MG | [facility] | [address] | | | TESTS | | | [...] [facility] | [address] | [place], [place] | | | GLORIA GENAO OF GM | [address] | [address] | | | TESTS | | | [...] DEPT OF | [address] | [place], [place] | | | CARDIOLOGY | [facility] | [address] | | + + + + + [...] [facility] | [address] | [place], [place] | | | GLORIA GENAO OF GM | [facility] | [address] | | | TESTS | | | [...] P[facility]ET[facility] | [address] | [place], [place] | | | [facility] CARE | [address] | [address] | | | TESTS | | | [...] [facility] | [address] | [place], [place] | | | [place] [facility] | [facility] | [address] | | | TESTS | | | [...] [facility] | [address] | [place] [address] | | | SERVICES, CORE | PARK [...] [facility] | [address] | [place] [address] | | | SERVICES, CORE | PARK [...] | | | LABORATORY | | | SWAZI | | | SERVICES, | | | [...] the MDRD equation recommended by the | [facility] | | National Kidney Disease Education Program. [...] [facility] | [address] [facility] | [place] [address] | | | ELIN, NATALEE | VILMA [...] SELENA [facility] | [address] | [place], [place] | | | [place] [facility] | [address] | [address] | | | TESTS | | | [...] Note | + + | Service Account, Karma Platform Res In Interface - 09/25/2017 12:32 PM [...] [facility] | [address] | [place] [address] | | | SERVICES, CORE | PARK [...] [facility] | [address] | [place] [address] | | | SERVICES, CORE | PARK [...] | | | LABORATORY | | | SWAZI | | | SERVICES, | | | [...] | + + + + + | [facility] | [address] | [place] [address] | | | NATALEE WORTHINGTON | VILMA [...] DEPT OF | [address] | [place], [place] | | | CARDIOLOGY | [address] | [address] | | + + + + + [...] Note | + + | Service Account, Family-Mingle In Interface - 09/24/2017 4:09 PM PDT [...] [facility] | [address] | [place] [address] | | | SERVICES, CORE | PARK [...] | | | LABORATORY | | | SWAZI | | | SERVICES, | | | [...] [facility] | [address] [facility] | [place] [address] | | | SERVICES, CORE | PARK [...] [facility] | [address] | [place] [address] | | | SERVICES, CORE | PARK [...] | + + + + + | [facility] | [address] | [place] [address] | | | NATALEE WORTHINGTON | VILMA [...] | + + + + + | [facility] | [address] | [place] [address] | | | SERVICES, CORE | PARK [...] | | | LABORATORY | | | SWAZI | | | SERVICES, | | | [...] CENTER LAB[facility]ORY | [address] | [place] [address] | | | SERVICES, CORE | VILMA [...] PICKETT | [address] | [place], [place] | | | GLORIA GENAO OF CARE | [address] | [address] | | | TESTS | | | [...] MARQUAM | [address] | [place], [place] | | | [facility] CARE | [address] | [address] | | | TESTS | | | [...] | + + + + + | [facility] | [address] | [place] [address] | | | SERVICES, CORE | VILMA [...] DEPT OF | [address] | [place], [place] | | | CARDIOLOGY | [address] | [address] | | + + + + + [...] | + + + + + | [facility] | [address] | [place] [address] | | | SERVICESNATALEE | [address] [...] [facility] | [address] [facility] | [place] [address] | | | ELIN, NATALEE | PARK [...] | | | LABORATORY | | | SWAZI | | | SERVICES, | | | [...] | + + + + + | [facility] | [address] | [place] [address] | | | SERVICES, CORE | VILMA [...] [facility] | [address] | [place], [place] | | | GLORIA GENAO OF GM | [address] | [address] | | | TESTS | | | [...] [facility] | [address] | [place] [address] | | | SERVICES, CORE | PARK [...] [facility] | [address] | [place] [address] | | | SERVICES, CORE | PARK [...] | | | LABORATORY | | | SWAZI | | | SERVICES, | | | [...] CENTER LAB[facility]ORY | [address] | [place] [address] | | | SERVICES, [facility] | [address] | | | + [...] Note | + + | Service Account, RadiPhantom Pay Res In Interface - 09/20/2017 7:50 PM [...] Note | + + | Service Account, ALung Technologiesant Res In Interface - 09/20/2017 6:25 PM [...] DEPT OF | [address] | [place], [place] | | | CARDIOLOGY | [address] | [address] | | + + + + + [...] CENTER LAB[facility]ORY | [address] | [place] [address] | | | NATALEE WORTHINGTON | VILMA [...] CENTER LAB[facility]ORY | [address] | [place] [address] | | | NATALEE WORTHINGTON | PARK [...] | | | LABORATORY | | | SWAZI | | | SERVICES, | | | [...] + | [facility] | [address] | [place] [address] | | | SERVICES, CORE | PARK [...] [facility] | [address] | [place] [address] | | | NATALEE WORTHINGTON | PARK [...] [facility] | [address] [facility] | [place] [address] | | | SERVICES, NATALEE | VILMA [...] | | | LABORATORY | | | SWAZI | | | SERVICES, | | | [...] | + + + + + | [facility] | [address] [facility] | [place] [address] | | | SERVICES, CORE | PARK [...] | 09/05/2017 | LABORATORY | | | NATAELE WORTHINGTON | + + + + + + + + | Performing | Address | City/State/Zipcode | Phone Number | | Organization | | | | + + + + + | [facility] | [address] | [place] [address] | | | NATALEE WORTHINGTON | VILMA [...] CENTER [facility] | [address] | [place] [address] | | | SERVICES, NATALEE | PARK [...] | | | LABORATORY | | | SWAZI | | | SERVICES, | | | [...] | + + + + + | [facility] | [address] | [place] [address] | | | SERVICES, CORE | VILMA [...] CENTER LAB[facility]ATORY | [address] | [place] [address] | | | SERVICES, CORE | PARK [...] [facility] | [address] | [place] [address] | | | SERVICES, NATALEE | VILMA [...] | | | LABORATORY | | | SWAZI | | | SERVICES, | | | [...] | + + + + + | [facility] | [address] [facility] | [place] [address] | | | SERVICES, NATALEE | [address] | | | + + + + + X-RAY PORTABLE CHEST PICC LINE CHECK (09/16/2017 1:11 PM PDT) + + | Specimen | + + | | + + + + + | Narrative | Performed At | + + + | EXAM: SC CHEST PICC LINE CHECK HISTORY: PICC placement [...] Note | + + | Service Account, Family-Mingle In Interface - 09/16/2017 1:34 PM PDT EXAM: SC CHEST | | PICC LINE CHECK HISTORY: [...] At | + + + | EXAM: SC CHEST PICC LINE CHECK HISTORY: Evaluate PICC [...] Note | + + | Service Account, Family-Mingle In Interface - 09/16/2017 11:41 AM PDT EXAM: SC CHEST | | PICC LINE CHECK HISTORY: [...] [facility] | [address] | [place] [address] | | | SERVICES, CORE | [address] | | | + + + + + MAGNESIUM, PLASMA (09/16/2017 5:32 AM PDT) + +-------+ + + + | Component | Value | Ref Range | Performed | Pathologist | | | | | At | Signature | + +-------+ + + + | MAGNESIUM,P | 2.3 | 1.6 - 2.6 mg/dL | [facility] | | | [facility] | | [...] [facility] | [address] | [place] [address] | | | ELIN, NATALEE | VILMA [...] | | | LABORATORY | | | SWAZI | | | SERVICES, | | | [...] | + + + + + | [facility] | [address] | [place] [address] | | | SERVICES, CORE | [address] | | | + + + + + X-RAY PORTABLE CHEST 1 VIEW (09/15/2017 3:28 PM PDT) + + | Specimen | + + | | + + + + + | Narrative | Performed At | + + + | EXAM: SC CHEST 1 VIEW HISTORY: COMPARISON: None. | [...] Interface - 09/15/2017 6:45 PM PDT EXAM: SC CHEST 1 | | VIEW HISTORY: COMPARISON: [...] At | + + + | EXAM: SC CHEST PICC LINE CHECK HISTORY: PICC COMPARISON: | [facility] | | 09/10/17 FINDINGS: A left upper [...] Interface - 09/15/2017 6:43 PM PDT EXAM: SC CHEST | | PICC LINE CHECK HISTORY: [...] | pause verifies correct patient, procedure, equipment, residential direct support professional | | | and site/side [...] | area Basilic vein. Catheter lot number: [id number] with a length of 55 | | [...] Note | + + | Service Account, Family-Mingle In Interface - 09/15/2017 2:13 PM PDT [...] [facility] | [address] | [place] [address] | | | NATALEE WORTHINGTON | VILMA [...] [facility] | [address] [facility] | [place] [address] | | | NATALEE WORTHINGTON | PARK [...] | | | LABORATORY | | | SWAZI | | | SERVICES, | | | [...] | + + + + + | [facility] | [address] | [place] [address] | | | SERVICES, CORE | VILMA [...] CENTER LAB[facility] | [address] | [place] [address] | | | SERVICES, CORE | PARK [...] [facility] | [address] | [place] [address] | | | SERVICES, NATALEE | VILMA [...] | | | LABORATORY | | | SWAZI | | | SERVICES, | | | [...] + | [facility] | [address] | [place] [address] | | | SERVICES, CORE | VILMA [...] CENTER LAB[facility]ORY | [address] | [place] [address] | | | SERVICES, CORE | [address] | | | + + + + + MAGNESIUM, PLASMA (09/13/2017 6:34 AM PDT) + +-------+ + + + | Component | Value | Ref Range | Performed | Pathologist | | | | | At | Signature | + +-------+ + + + | MAGNESIUM,P | 2.3 | 1.6 - 2.6 mg/dL | [facility] | | | LASMA | | | [...] [facility] | [address] | [place] [address] | | | SERVICES, NATALEE | VILMA [...] | | | LABORATORY | | | SWAZI | | | SERVICES, | | | [...] | + + + + + | [facility] | [address] | [place] [address] | | | SERVICES, CORE | VILMA [...] | + + + + + | [facility] | [address] | [place] [address] | | | SERVICES, CORE | VILMA [...] [facility] | [address] | [place] [address] | | | SERVICES, CORE | PARK [...] | | | LABORATORY | | | SWAZI | | | SERVICES, | | | [...] the MDRD equation recommended by the | [facility] | | National Kidney Disease Education Program. [...] | + + + + + | [facility] | [address] | [place] [address] | | | SERVICES, NATALEE | VILMA [...] Note | + + | Service Account, Karma Platform Res In Interface - 09/11/2017 6:22 PM [...] CENTER LAB[facility]ORY | [address] | [place] [address] | | | SERVICES, CORE | [address] | | | + + + + + MAGNESIUM, PLASMA (09/11/2017 7:12 AM PDT) + +---------+ + + + | Component | Value | Ref Range | Performed | Pathologist | | | | | At | Signature | + +---------+ + + + | MAGNESIUM,P | 2.7 (H) | 1.6 - 2.6 mg/dL | [facility] | | | LASMA | | | [...] [facility] | [address] | [place] [address] | | | SERVICES, NATALEE | VILMA [...] | | | LABORATORY | | | SWAZI | | | SERVICES, | | | [...] | + + + + + | [facility] | [address] | [place] [address] | | | NATALEE WORTHINGTON | VILMA [...] | + + + + + | [facility] | [address] | [place] [address] | | | SERVICES, CORE [...] Note | + + | Service Account, RadiPhantom Pay Res In Interface - 09/10/2017 2:08 PM [...] [facility] | | | | | [facility] | | | | + +---------+ + + X-RAY PORTABLE CHEST 1 VIEW (09/10/2017 7:16 AM PDT) + + | Specimen | + + | | + + + + + | Narrative | Performed At | + + + | STUDY: SC CHEST 1 VIEW 09/10/17 07:02:01 HISTORY: Possible [...] Interface - 09/10/2017 9:25 AM PDT STUDY: SC CHEST 1 | | VIEW 09/10/17 07:02:01 [...] [facility] | [address] | [place] [address] | | | SERVICES, CORE | PARK [...] LABORATORY | [address] | [place] [address] | | | SERVICES, CORE | PARK [...] | + + + + + | [facility] | [address] | [place] [address] | | | SERVICES, CORE | VILMA [...] [facility] | [address] | [place] [address] | | | SERVICES, CORE | PARK [...] | | | LABORATORY | | | SWAZI | | | SERVICES, | | | [...] [facility] | [address] | [place] [address] | | | SERVICES, CORE | VILMA [...] [facility] | [address] | [place], [place] | | | CARDIOLOGY | [address] | [address] | | + + + + + [...] Note | + + | Service Account, Karma Platform Res In Interface - 09/10/2017 11:11 AM [...] [facility] | [address] | [place], [place] | | | [facility] OF [facility]ARE | [facility] | [address] | | | TESTS | | | [...] [facility] | [address] | [place] [address] | | | ELIN, NATALEE | VILMA [...] [facility] | [address] | [place] [address] | | | SERVICES, CORE | PARK [...] | | | LABORATORY | | | SWAZI | | | SERVICES, | | | [...] CENTER [facility] | [address] | [place] [address] | | | ELIN, NATALEE | VILMA [...] [facility] | [address] | [place] [address] | | | SERVICES, CORE | PARK [...] | | | LABORATORY | | | SWAZI | | | SERVICES, | | | [...] [facility] | [address] | [place] [address] | | | SERVICES, CORE | PARK [...] | + + + + + | [facility] | [address] [facility] | [place] [address] | | | SERVICES, CORE | PARK [...] [facility] | [address] | [place] [address] | | | SERVICES, CORE | PARK [...] [facility] | [address] | [place], [place] | | | CARDIOLOGY | [address] | [address] | | + + + + + X-RAY PORTABLE CHEST 1 VIEW (09/07/2017 6:12 AM PDT) + + | Specimen | + + | | + + + + + | Narrative | Performed At | + + + | EXAM: SC CHEST 1 VIEW HISTORY: Post extubation COMPARISON: [...] Note | + + | Service Account, RadiPhantom Pay Res In Interface - 09/07/2017 10:46 AM PDT EXAM: SC CHEST 1 | | VIEWHISTORY: Post extubationCOMPARISON: [...] [facility]ENTER [facility] | [address] | [place] [address] | | | NATALEE WORTHINGTON | PARK [...] | | | LABORATORY | | | SWAZI | | | SERVICES, | | | [...] | + + + + + | [facility] | [address] | [place] [address] | | | SERVICES, CORE | VILMA [...] [facility] | [address] | [place] [address] | | | SERVICES, CORE | VILMA [...] Note | + + | Service Account, Karma Platform Res In Interface - 09/07/2017 10:46 AM [...] DEPT OF | [address] | [place], [place] | | | CARDIOLOGY | [address] | [address] | | + + + + + [...] | | | attempt. Midline lot number [id number]; there was positive blood | | | [...] | | | LABORATORY | | | SWAZI | | | SERVICES, | | | [...] CENTER [facility] | [address] | [place] [address] | | | SERVICES, CORE | PARK [...] CENTER LAB[facility] | [address] | [place] [address] | | | SERVICES, [facility] | [address] | | | + + + + + X-RAY PORTABLE CHEST 1 VIEW (09/05/2017 5:33 AM PDT) + + | Specimen | + + | | + + + + + | Narrative | Performed At | + + + | EXAM: SC CHEST 1 VIEW HISTORY: Evaluation after chest [...] Note | + + | Service Account, Karma Platform Res In Interface - 09/05/2017 10:16 AM PDT EXAM: SC CHEST 1 | | VIEW HISTORY: Evaluation [...] | + + + + + | [facility] | [address] | [place] [address] | | | SERVICES, CORE | VILMA [...] [facility] | [address] | [place] [address] | | | SERVICES, CORE | VILMA [...] | | | LABORATORY | | | SWAZI | | | SERVICES, | | | [...] [facility] | [address] | [place] [address] | | | SERVICES, CORE | PARK [...] | | | LABORATORY | | | SWAZI | | | SERVICES, | | | [...] CENTER [facility]ORY | [address] | [place] [address] | | | ELIN, NATALEE | VILMA [...] tomorrow morning. CB Henson Pager / ID: [phone] | | + + + CULTURE, SPUTUM [...] + | [facility] | [address] | [place] [address] | | | [place] | | | [...] | + + + + + | [facility] | [address] | [place] [address] | | | SERVICES, CORE | VILMA [...] | [facility] | | | GRAVITY | Polk performed by | | LABORATORY | | [...] [facility] | [address] | [place] [address] | | | SERVICES, NATALEE | VILMA [...] [facility] | [address] | [place] [address] | | | SERVICES, NATALEE | PARK [...] | | | | days. | | ELIN, | | | | | | CORE | | + + + + + + + + | Specimen | + + | Blood - Peripheral | | (qualifier value) | + + + + + + + | Performing | Address | City/State/Zipcode | Phone Number | | Organization | | | | + + + + + | [facility] | [address] | [place] [address] | | | SERVICES, CORE | VILMA [...] + + | [facility] | [address] | [place], [place] | | | CARDIOLOGY | [address] | [address] | | + + + + + X-RAY PORTABLE CHEST 1 VIEW (09/04/2017 7:04 AM PDT) + + | Specimen | + + | | + + + + + | Narrative | Performed At | + + + | EXAM: SC CHEST 1 VIEW HISTORY: Hypoxia. Intubated. | [...] Note | + + | Service Account, Family-Mingle In Interface - 09/04/2017 9:49 AM PDT EXAM: SC CHEST 1 | | VIEW HISTORY: Hypoxia. [...] [facility] | [address] | [place] [address] | | | SERVICES, CORE | PARK [...] [facility] | [address] | [place] [address] | | | SERVICES, CORE | PARK [...] | | | LABORATORY | | | SWAZI | | | SERVICES, | | | [...] + + | Performing | Address | City/State/[facility] Health Cliniccode | Phone Number | | Organization | | | | + + + + + | [facility] | [address] | [place] [address] | | | ELIN, CORE | VILMA [...] CENTER LAB[facility]ORY | [address] | [place] [address] | | | ELIN, NATALEE | VILMA [...] [facility] | [address] | [place], [place] | | | GLORIA GENAO OF CARE | [address] | [address] | | | TESTS | | | [...] - [facility] | [address] | [place], [place] | | | [facility]INT OF CARE | [address] | [address] | | | TESTS | | | [...] + + + | [facility] | [address] | [place], [place] | | | [facility] POINT OF CARE | [address] | [address] | | | TESTS | | | [...] [facility] | [address] | [place], [place] | | | [facility] POINT OF CARE | [address] | [address] | | | TESTS | | | [...] Note | + + | Service Account, Karma Platform Res In Interface - 09/03/2017 10:27 AM [...] + | [facility] | [address] | [place] [address] | | | [facility] | | | | + [...] | + + + + + | [facility] | [address] [facility] | [place] [address] | | | SERVICES, CORE | VILMA [...] detected | AIRPORT - | | | [place] | + + + + + + + + | Performing | Address | City/State/Zipcode | Phone Number | | Organization | | | | + + + + + | [facility] | [address] | [place] [address] | | | [place] | | | | + + + [...] | + + + + + | [facility] | [address] | [place] [address] | | | SERVICES, CORE | VILMA [...] [facility] | [address] | [place] [address] | | | SERVICES, CORE | PARK [...] | | | LABORATORY | | | SWAZI | | | SERVICES, | | | [...] the MDRD equation recommended by the | [facility] | | National Kidney Disease Education Program. [...] CENTER LAB[facility]ATORY | [address] | [place] [address] | | | SERVICES, CORE | PARK [...] [facility] | [address] | [place] [address] | | | SERVICES, NATALEE | [address] | | | + + + + + OPERATION RECORD (09/02/2017 6:53 PM PDT) + + | Procedure Note | + + | Fidelina Shields MD - 09/02/2017 6:53 PM PDT Date of Service: 09/02/2017 | | Attending Surgeon: Fidelina Shields MD Bottle Line Worker(s): | | Ajay Garcia MD, resident. [...] 09/02/2017 18:15:29DT: 09/02/2017 18:53:52Job #: | | [id number] to federal Medicare and Medicaid regulations I was present for | | the entire procedure.Fidelina Shields MDAssistant ProfessorDepartment of SurgeryOffice: | | [phone]: [phone] has been electronically signed by Fidelina Shields MD, | | 09/03/2017 at 9:11 AM. | | | | | |Fidelina Shields MD | |Instructional Support Services Director | |Department of Surgery | |Office: [phone] | |Pager: [phone] | | | |This has been electronically [...] [facility] | [address] | [place] [address] | | | SERVICES, CORE | PARK [...] | + + + + + | [facility] | [address] [facility] | [place] [address] | | | SERVICES, CORE | PARK [...] | + + + + + | [facility] - | [address] | [place] [address] | | | [place] | | | | + + + [...] CENTER LAB[facility]ORY | [address] | [place] [address] | | | SERVICES, NATALEE | VILMA [...] | | | LABORATORY | | | SWAZI | | | SERVICES, | | | [...] | + + + + + | [facility] | [address] | [place] [address] | | | SERVICES, CORE | [address] [...] + + | Performing | Address | City/State/Zia Health Cliniccode | Phone Number | | Organization | [...] | | | contact: INGRID Garcia, Surgery [phone] Pursuant | | | to federal Medicare and Medicaid regulations I was present for the | | | entire procedure. Fidelina Shields MD Instructional Support Services Director | | | Department of Surgery Office: [phone] Pager: [phone] This has | | | been electronically [...] CENTER [facility] | [address] | [place] [address] | | | SERVICES, CORE | VILMA [...] [facility] | [address] | [place] [address] | | | NATALEE WORTHINGTON | [address] | | | + + + + + OPERATION RECORD (09/02/2017 6:51 AM PDT) + ---+ | Procedure Note | + ---+ | Fidelina Shields MD - 09/02/2017 6:51 AM PDT Date of Service: 09/01/2017 | | Attending Surgeon: Fidelina Shields MD Bottle Line Worker(s): Haim Peralta MD. | | Ajay Garcia [...] 09/02/2017 06:17:53DT: 09/02/2017 | | 06:51:37Job #: [id number] to federal Medicare and Medicaid regulations I | | was present for the entire procedure.Fidelina Goodenistanbrice ProfessorDepartment of | | SurgeryOffice: [phone]: [phone] has been electronically signed by Fidelina Snyder | | MD Cornelius, 09/02/2017 at 10:40 AM. | | | | | |Pursuant to federal Medicare and Medicaid regulations I was present for the entire procedur e. | | | | | | | |Fidelina Shields MD | |Instructional Support Services Director | |Department of Surgery | |Office: [phone] | |Pager: [phone] | | | |This has been electronically [...] [facility] | [address] | [place] [address] | | | SERVICES, CORE | PARK [...] (L) | 41.0 - 53.0 % | [facility] | | | | | | LABORATORY [...] | + + + + + | [facility] | [address] | [place] [address] | | | SERVICES, CORE | PARK [...] + + + + | PRODUCT | [id number] | | [facility] | | | UNIT [...] + + + + | EXPIRATION | [id number] | | [facility] | | | DATE [...] + + + + | BLOOD | [id number] | | [facility] | | | PRODUCT [...] | + + + + + | [facility] | [address] | [place] [address] | | | SERVICES, | [address] [...] [facility] | [address] | [place] [address] | | | SERVICES, CORE | PARK [...] | | | LABORATORY | | | [facility] | | | SERVICES, | | | [...] the MDRD equation recommended by the | [facility] | | National Kidney Disease Education Program. [...] [facility] | [address] [facility] | [place] [address] | | | ELIN, NATALEE | [address] [...] [facility]ENTER [facility] | [address] | [place] [address] | | | ELIN, NATALEE | [address] [...] | | | | INFORMATION: | | [place] | | | | Quanti[employer] | [...] (http://www.cdc.gov/mmwr | | | | | | /preview/mmwrhtml/[email or web address] | | | | | | [email or web address].htm), [...] [place] - | | | | by [employer], | | AIRPORT - | | | | | | [place] | | | | [address] | | | | | | [address] [facility] | | | | | | [address] | | | | | | | | | | | | [email or web address] | | | | | | [...] + | [facility] - | [address] | [place] [address] | | | [place] | | | [...] + + + | [facility] | [address] | [place] [address] | | | SERVICES, CORE | VILMA [...] [facility] | [address] | [place] [address] | | | SERVICES, [facility] | [address] | | | + [...] At | + + + | EXAM: SC CHEST 1 VIEW HISTORY: Hypoxemia COMPARISON: 09/01/17 [...] Interface - 09/02/2017 10:34 AM PDT EXAM: SC CHEST 1 | | VIEW HISTORY: HypoxemiaCOMPARISON: [...] SELENA MCNAIR | [address] | [place] [address] | | | SERVICES, CORE | VILMA [...] [facility] | [address] | [place] [address] | | | SERVICES, CORE | PARK [...] + + + + | PRODUCT | [id number] | | [facility] | | | UNIT [...] + + + + | EXPIRATION | [id number] | | [facility] | | | DATE [...] + + + + | BLOOD | [id number] | | [facility] | | | PRODUCT [...] [facility] | [address] | [place] [address] | | | SERVICES, | [address] [...] [facility] | [address] | [place] [address] | | | SERVICES, CORE | VILMA [...] | [facility] | [address] [facility] | [place] [address] | | | SERVICES, CORE | PARK [...] [facility] | [address] | [place] [address] | | | SERVICES, CORE | PARK [...] | | | LABORATORY | | | [facility] | | | SERVICES, | | | [facility] | [address] [facility] | [place] [address] | | | SERVICES, NATALEE | PARK [...] | + + + + + | [facility] | [address] | [place] [address] | | | SERVICES, CORE | VILMA [...] | + + + + + | [facility] | [address] | [place] [address] | | | SERVICES, [facility] | [address] | | | + [...] arteries | | | from the right GAS TECHNICIAN approach. DSA was performed from the left [...] micropuncture access set was exchanged for a Plunify wire. Under fluoroscopic guidance, | | a 5 Fr flush catheter was used to evaluate the distal abdominal aorta and pelvic | | vasculature. A wire and catheter were then used to select the left common and internal | | iliac arteries from the right GAS TECHNICIAN approach. DSA was performed from the left [...] micropuncture access set was exchanged for a Plunify wire. Under fluoroscopic guidance, a 5 Fr flush catheter was used | |to evaluate the distal abdominal aorta and pelvic vasculature. A wire and catheter were th en used to select the left common and internal iliac arteries from the right GAS TECHNICIAN approach. DSA was performed from the left [...] + + | SELENA PICKETT | [address] [facility] [address] | [place], [place] | | | [place] [facility] | [address] | [address] | | | TESTS | | | | + + + + + EXPLORATORY LAPAROTOMY (09/01/2017 12:31 PM PDT) + + + | Narrative | Performed At | + + + | Fidelina Shields MD 09/01/2017 12:42 PM BRIEF OPERATIVE NOTE: | | | Date: 09/01/2017 Author: Fidelina Shields MD | | | Attending Physician: Fidelina Shields MD Bottle Line Worker(s): Haim Peralta | | | , Vicente Garcia MD, [facility] MS3 Prior to the | | [...] case. | | | Fidelina Shields MD Instructional Support Services Director Division of Trauma, | | | Critical Care and Acute Care Surgery Office: [phone] Pager: | | | [phone] | | + + + ABG-FULL ABL, [...] [facility] | [address] | [place], [place] | | | [facility] GE[facility] | [address] | [address] | | | TESTS | | | [...] [facility] | [address] | [place] [address] | | | NATALEE WORTHINGTON | VILMA [...] [facility] | | | | | | GOLRIA GENAO | | | | | | [...] + + + | SELENA P[facility]ET[facility] | [address] | [place], [place] | | | [facility] GE[facility] | [address] | [address] | | | TESTS | | | [...] + + + + | PRODUCT | [id number] | | [facility] | | | UNIT [...] + + + + | EXPIRATION | [id number] | | [facility] | | | DATE [...] + + + + | BLOOD | [id number] | | [facility] | | | PRODUCT [...] | + + + + + | [facility] | [address] | [place] [address] | | | SERVICES, | [address] [...] + + + + | PRODUCT | [id number] | | [facility] | | | UNIT [...] + + + + | EXPIRATION | [id number] | | [facility] | | | DATE [...] + + + + | BLOOD | [id number] | | [facility] | | | PRODUCT [...] | + + + + + | [facility] | [address] | [place] [address] | | | SERVICES, | [address] [...] + + + + | PRODUCT | [id number] | | [facility] | | | UNIT [...] + + + + | EXPIRATION | [id number] | | [facility] | | | DATE [...] + + + + | BLOOD | [id number] | | [facility] | | | PRODUCT [...] [facility] | [address] | [place] [address] | | | SERVICES, | [address] [...] + + + + | PRODUCT | [id number] | | [facility] | | | UNIT [...] + + + + | EXPIRATION | [id number] | | [facility] | | | DATE [...] + + + + | BLOOD | [id number] | | [facility] | | | PRODUCT [...] [facility] | [address] | [place] [address] | | | SERVICES, | [address] [...] + + + + | PRODUCT | [id number] | | [facility] | | | UNIT [...] + + + + | EXPIRATION | [id number] | | [facility] | | | DATE [...] + + + + | BLOOD | [id number] | | [facility] | | | PRODUCT [...] [facility] | [address] | [place] [address] | | | SERVICES, | [address] [...] + + + + | PRODUCT | [id number] | | [facility] | | | UNIT [...] + + + + | EXPIRATION | [id number] | | [facility] | | | DATE [...] + + + + | BLOOD | [id number] | | [facility] | | | PRODUCT [...] [facility] | [address] | [place] [address] | | | SERVICES, | [address] [...] + + + + | PRODUCT | [id number] | | [facility] | | | UNIT [...] + + + + | EXPIRATION | [id number] | | [facility] | | | DATE [...] + + + + | BLOOD | [id number] | | [facility] | | | PRODUCT [...] LABORATORY | [address] | [place] [address] | | | SERVICES, | [address] [...] + + + + | PRODUCT | [id number] | | [facility] | | | UNIT [...] + + + + | EXPIRATION | [id number] | | [facility] | | | DATE [...] + + + + | BLOOD | [id number] | | [facility] | | | PRODUCT [...] [facility] | [address] | [place] [address] | | | SERVICES, | [address] [...] + + + + | PRODUCT | [id number] | | [facility] | | | UNIT [...] + + + + | EXPIRATION | [id number] | | [facility] | | | DATE [...] + + + + | BLOOD | [id number] | | [facility] | | | PRODUCT [...] | + + + + + | [facility] | [address] | [place] [address] | | | SERVICES, | [address] [...] + + + + | PRODUCT | [id number] | | [facility] | | | UNIT [...] + + + + | EXPIRATION | [id number] | | [facility] | | | DATE [...] + + + + | BLOOD | [id number] | | [facility] | | | PRODUCT [...] + | [facility] | [address] [facility] | [place] [address] | | | SERVICES, | [address] [...] + + + + | PRODUCT | [id number] | | [facility] | | | UNIT [...] + + + + | EXPIRATION | [id number] | | [facility] | | | DATE [...] + + + + | BLOOD | [id number] | | [facility] | | | PRODUCT [...] | + + + + + | [facility] | [address] | [place] [address] | | | SERVICES, | [address] [...] + + + + | PRODUCT | [id number] | | [facility] | | | UNIT [...] + + + + | EXPIRATION | [id number] | | [facility] | | | DATE [...] + + + + | BLOOD | [id number] | | [facility] | | | PRODUCT [...] [facility] | [address] | [place] [address] | | | SERVICES, | [address] [...] + + + + | PRODUCT | [id number] | | [facility] | | | UNIT [...] + + + + | EXPIRATION | [id number] | | [facility] | | | DATE [...] + + + + | BLOOD | [id number] | | [facility] | | | PRODUCT [...] [facility] | [address] | [place] [address] | | | SERVICES, | [address] [...] + + + + | PRODUCT | [id number] | | [facility] | | | UNIT [...] + + + + | EXPIRATION | [id number] | | [facility] | | | DATE [...] + + + + | BLOOD | [id number] | | [facility] | | | PRODUCT [...] [facility] | [address] | [place] [address] | | | SERVICES, | [address] [...] + + + + | PRODUCT | [id number] | | [facility] | | | UNIT [...] + + + + | EXPIRATION | [id number] | | [facility] | | | DATE [...] + + + + | BLOOD | [id number] | | [facility] | | | PRODUCT [...] [facility] | [address] | [place] [address] | | | SERVICES, | [address] [...] + + + + | PRODUCT | [id number] | | [facility] | | | UNIT [...] + + + + | EXPIRATION | [id number] | | [facility] | | | DATE [...] + + + + | BLOOD | [id number] | | [facility] | | | PRODUCT [...] [facility] | [address] | [place] [address] | | | SERVICES, | [address] [...] + + + + | PRODUCT | [id number] | | [facility] | | | UNIT [...] + + + + | EXPIRATION | [id number] | | [facility] | | | DATE [...] + + + + | BLOOD | [id number] | | [facility] | | | PRODUCT [...] [facility] | [address] | [place] [address] | | | SERVICES, | [address] [...] + + + + | PRODUCT | [id number] | | [facility] | | | UNIT [...] + + + + | EXPIRATION | [id number] | | [facility] | | | DATE [...] + + + + | BLOOD | [id number] | | [facility] | | | PRODUCT [...] [facility] | [address] | [place] [address] | | | SERVICES, | [address] [...] + + + + | PRODUCT | [id number] | | [facility] | | | UNIT [...] + + + + | EXPIRATION | [id number] | | [facility] | | | DATE [...] + + + + | BLOOD | [id number] | | [facility] | | | PRODUCT [...] [facility] | [address] | [place] [address] | | | SERVICES, | [address] [...] + + + + | PRODUCT | [id number] | | [facility] | | | UNIT [...] + + + + | EXPIRATION | [id number] | | [facility] | | | DATE [...] + + + + | BLOOD | [id number] | | [facility] | | | PRODUCT [...] LABORATORY | [address] | [place] [address] | | | SERVICES, | [address] [...] + + + + | PRODUCT | [id number] | | [facility] | | | UNIT [...] + + + + | EXPIRATION | [id number] | | [facility] | | | DATE [...] + + + + | BLOOD | [id number] | | [facility] | | | PRODUCT [...] + | [facility] | [address] | [place] [address] | | | SERVICES, | [address] [...] + + + + | PRODUCT | [id number] | | [facility] | | | UNIT [...] + + + + | EXPIRATION | [id number] | | [facility] | | | DATE [...] + + + + | BLOOD | [id number] | | [facility] | | | PRODUCT [...] | + + + + + | [facility] | [address] | [place] [address] | | | SERVICES, | [address] [...] + + + + | PRODUCT | [id number] | | [facility] | | | UNIT [...] + + + + | EXPIRATION | [id number] | | [facility] | | | DATE [...] + + + + | BLOOD | [id number] | | [facility] | | | PRODUCT [...] | + + + + + | [facility] | [address] | [place] [address] | | | SERVICES, | [address] [...] + + + + | PRODUCT | [id number] | | [facility] | | | UNIT [...] + + + + | EXPIRATION | [id number] | | [facility] | | | DATE [...] + + + + | BLOOD | [id number] | | [facility] | | | PRODUCT [...] [facility] | [address] | [place] [address] | | | SERVICES, | [address] [...] + + + + | PRODUCT | [id number] | | [facility] | | | UNIT [...] + + + + | EXPIRATION | [id number] | | [facility] | | | DATE [...] + + + + | BLOOD | [id number] | | [facility] | | | PRODUCT [...] [facility] | [address] | [place] [address] | | | SERVICES, | [address] [...] + + + + | PRODUCT | [id number] | | [facility] | | | UNIT [...] + + + + | EXPIRATION | [id number] | | [facility] | | | DATE [...] + + + + | BLOOD | [id number] | | [facility] | | | PRODUCT [...] [facility] | [address] | [place] [address] | | | SERVICES, | [address] [...] | + + + + + | [facility] | [address] | [place] [address] | | | SERVICES, CORE | [address] [...] | | | LABORATORY | | | [facility] | | | SERVICES, | | | [...] [facility] | [address] | [place] [address] | | | SERVICES, CORE | PARK [...] | + + + + + | [facility] | [address] | [place] [address] | | | SERVICES, CORE | PARK [...] [facility] | [address] | [place], [place] | | | [place] [facility] | [address] | [address] | | | TESTS | | | | + + + + + X-RAY PORTABLE CHEST 1 VIEW (09/01/2017 9:18 AM PDT) + + | Specimen | + + | | + + + + + | Narrative | Performed At | + + + | EXAM: SC CHEST 1 VIEW HISTORY: Intubated COMPARISON: 08/31/17 [...] Interface - 09/02/2017 1:23 PM PDT EXAM: SC CHEST 1 | | VIEW HISTORY: IntubatedCOMPARISON: [...] Note | + + | Service Account, Family-Mingle In Interface - 09/01/2017 1:40 PM PDT [...] + + + + | PRODUCT | [id number] | | [facility] | | | UNIT [...] + + + + | EXPIRATION | [id number] | | [facility] | | | DATE [...] + + + + | BLOOD | [id number] | | [facility] | | | PRODUCT [...] | + + + + + | [facility] | [address] | [place] [address] | | | SERVICES, | [address] [...] + + + + | PRODUCT | [id number] | | [facility] | | | UNIT [...] + + + + | EXPIRATION | [id number] | | [facility] | | | DATE [...] + + + + | BLOOD | [id number] | | [facility] | | | PRODUCT [...] [facility] | [address] | [place] [address] | | | SERVICES, | [address] [...] + + + + | PRODUCT | [id number] | | [facility] | | | UNIT [...] + + + + | EXPIRATION | [id number] | | [facility] | | | DATE [...] + + + + | BLOOD | [id number] | | [facility] | | | PRODUCT [...] [facility] | [address] | [place] [address] | | | SERVICES, | [address] [...] + + + + | PRODUCT | [id number] | | [facility] | | | UNIT [...] + + + + | EXPIRATION | [id number] | | [facility] | | | DATE [...] + + + + | BLOOD | [id number] | | [facility] | | | PRODUCT [...] [facility] | [address] | [place] [address] | | | SERVICES, | [address] [...] + + + + | PRODUCT | [id number] | | [facility] | | | UNIT [...] + + + + | EXPIRATION | [id number] | | [facility] | | | DATE [...] + + + + | BLOOD | [id number] | | [facility] | | | PRODUCT [...] [facility] | [address] | [place] [address] | | | SERVICES, | [address] [...] + + + + | PRODUCT | [id number] | | [facility] | | | UNIT [...] + + + + | EXPIRATION | [id number] | | [facility] | | | DATE [...] + + + + | BLOOD | [id number] | | [facility] | | | PRODUCT [...] [facility] | [address] | [place] [address] | | | SERVICES, | [address] [...] + + + + | PRODUCT | [id number] | | [facility] | | | UNIT [...] + + + + | EXPIRATION | [id number] | | [facility] | | | DATE [...] + + + + | BLOOD | [id number] | | [facility] | | | PRODUCT [...] [facility] | [address] | [place] [address] | | | SERVICES, | [address] [...] + + + + | PRODUCT | [id number] | | [facility] | | | UNIT [...] + + + + | EXPIRATION | [id number] | | [facility] | | | DATE [...] + + + + | BLOOD | [id number] | | [facility] | | | PRODUCT [...] | + + + + + | [facility] | [address] | [place] [address] | | | ELIN, | [address] [...] + + + + | PRODUCT | [id number] | | [facility] | | | UNIT [...] + + + + | EXPIRATION | [id number] | | [facility] | | | DATE [...] + + + + | BLOOD | [id number] | | [facility] | | | PRODUCT [...] | + + + + + | [facility] | [address] | [place] [address] | | | SERVICES, | [address] [...] | + + + + + | [facility] | [address] | [place] [address] | | | SERVICES, CORE | PARK [...] [facility]ENTER [facility] | [address] | [place] [address] | | | SERVICES, CORE | [address] [...] Discussed with | | | trauma ICU news department intern by Dr. Yang at 4:38 AM. [...] interspinous ligament is injured.Discussed with trauma ICU news department intern | | by Dr. Yang at 4:38 AM.I have personally reviewed the images and, if necessary, | | edited the report. I agree with the report as now presented. | |3. Extensive soft tissue edema extending into the cervical and upper thoracic interspinous space, suggestive of interspinous ligament is injured. | | | |Discussed with trauma ICU news department intern by Dr. Yang at 4:38 AM. [...] | | | LABORATORY | | | [facility] | | | SERVICES, | | | [...] [facility]ENTER [facility] | [address] | [place] [address] | | | SERVICES, CORE | PARK [...] [facility] | [address] | [place] [address] | | | ELIN, NATALEE | [address] [...] [facility] | [address] | [place] [address] | | | SERVICES, CORE | PARK [...] [facility]ENTER [facility] | [address] | [place] [address] | | | SERVICES, CORE | VIL[address] [...] pleural spaced was performed. A 32 size Mauritian chest tube was | | | placed [...] | ventricles. Discussed with the trauma ICU news department intern at 12:12 AM by | | [...] ventricles.Discussed with | | the trauma ICU news department intern at 12:[address] Yang.I [...] | | |Discussed with the trauma ICU news department intern at 12:[address] Yang. [...] [facility] | [address] | [place], [place] | | | [facility] | [address] | [address] | | | TESTS | | | [...] [facility]ENTER [facility] | [address] | [place] [address] | | | SERVICES, NATALEE | VIL[address] [...] | [facility] | [address] [facility] | [place] [address] | | | NATALEE WORTHINGTON | [address] [...] Note | + + | Service Account, Family-Mingle In Interface - 09/01/2017 1:50 PM PDT [...] Note | + + | Service Account, Family-Mingle In Interface - 09/01/2017 1:40 PM PDT [...] Note | + + | Service Account, Karma Platform Res In Interface - 09/01/2017 1:50 PM [...] Note | + + | Service Account, Karma Platform Res In Interface - 09/01/2017 1:50 PM [...] [facility] | [address] | [place] [address] | | | SERVICES, CORE | [address] | | | + + + + + X-RAY PORTABLE CHEST 1 VIEW (08/31/2017 7:07 PM PDT) + + | Specimen | + + | | + + + + + | Narrative | Performed At | + + + | STUDY: SC CHEST 1 VIEW HISTORY: Trauma COMPARISON: CT [...] Note | + + | Service Account, RadiPhantom Pay Res In Interface - 09/01/2017 1:44 PM PDT STUDY: SC CHEST 1 | | VIEWHISTORY: TraumaCOMPARISON: CT [...] | + + + + + | [facility] | [address] | [place] [address] | | | SERVICES, NATALEE | [address] | | | + + + + + CTA NECK W CONTRAST (08/31/2017 6:27 PM PDT) + + | Specimen | + + | | + + + + + | Narrative | Performed At | + + + | EXAM: CTA neck HISTORY: Trauma COMPARISON: None | [facility] | | TECHNIQUE: CT angiogram of the [...] rib, nondisplaced-Left | | 1st rib fracture, jtwfmuqqayuz-Izt-aowolbaqs left lateral 8th rib fracture-T12 fracture | [...] | + + + + + | [facility] | [address] | [place] [address] | | | SERVICES, | [address] [...] [facility] | [address] | [place] [address] | | | SERVICES, | [address] [...] | + + + + + | [facility] | [address] [facility] | [place] [address] | | | SERVICES, | [address] [...] [facility] | [address] | [place], [place] | | | [facility] | [address] | [address] | | | TESTS | | | [...] [facility] | [address] | [place], [place] | | | [facility] | [address] | [address] | | | TESTS | | | [...] [facility] | [address] | [place], [place] | | | [facility] GE[facility] | [address] | [address] | | | TESTS | | | [...] [facility] | [address] | [place], [place] | | | [facility] | [address] | [address] | | | TESTS | | | [...] + + + + | PRODUCT | [id number] | | [facility] | | | UNIT [...] + + + + | EXPIRATION | [id number] | | [facility] | | | DATE [...] + + + + | BLOOD | [id number] | | [facility] | | | PRODUCT [...] [facility] | [address] | [place] [address] | | | SERVICES, | [address] [...] + + + + | PRODUCT | [id number] | | [facility] | | | UNIT [...] + + + + | EXPIRATION | [id number] | | [facility] | | | DATE [...] + + + + | BLOOD | [id number] | | [facility] | | | PRODUCT [...] [facility] | [address] | [place] [address] | | | SERVICES, | [address] [...] + + + + | PRODUCT | [id number] | | [facility] | | | UNIT [...] + + + + | EXPIRATION | [id number] | | [facility] | | | DATE [...] + + + + | BLOOD | [id number] | | [facility] | | | PRODUCT [...] [facility] | [address] | [place] [address] | | | SERVICES, | [address] [...] + + + + | PRODUCT | [id number] | | [facility] | | | UNIT [...] + + + + | EXPIRATION | [id number] | | [facility] | | | DATE [...] + + + + | BLOOD | [id number] | | [facility] | | | PRODUCT [...] [facility] | [address] | [place] [address] | | | SERVICES, | [address] [...] + + + + | PRODUCT | [id number] | | [facility] | | | UNIT [...] + + + + | EXPIRATION | [id number] | | [facility] | | | DATE [...] + + + + | BLOOD | [id number] | | [facility] | | | PRODUCT [...] LABORATORY | [address] | [place] [address] | | | SERVICES, | [address] [...] + + + + | PRODUCT | [id number] | | [facility] | | | UNIT [...] + + + + | EXPIRATION | [id number] | | [facility] | | | DATE [...] + + + + | BLOOD | [id number] | | [facility] | | | PRODUCT [...] [facility] | [address] | [place] [address] | | | SERVICES, | [address] [...] + + + + | PRODUCT | [id number] | | [facility] | | | UNIT [...] + + + + | EXPIRATION | [id number] | | [facility] | | | DATE [...] + + + + | BLOOD | [id number] | | [facility] | | | PRODUCT [...] [facility]ENTER [facility] | [address] | [place] [address] | | | SERVICES, | [address] [...] + + + + | PRODUCT | [id number] | | [facility] | | | UNIT [...] + + + + | EXPIRATION | [id number] | | [facility] | | | DATE [...] + + + + | BLOOD | [id number] | | [facility] | | | PRODUCT [...] | + + + + + | [facility] | [address] | [place] [address] | | | SERVICES, | [address] [...] [facility] | [address] | [place] [address] | | | SERVICES, CORE | [address] [...] | | | LABORATORY | | | [facility] | | | SERVICES, | | | [facility] | [address] [facility] | [place] [address] | | | SERVICES, CORE | [address] [...] | + + + + + | [facility] | [address] | [place] [address] | | | SERVICES, CORE | VILMA [...] [facility] | [address] | [place] [address] | | | NATALEE WORTHINGTON | PARK [...] CENTER LABORATORY | [address] | [place] [address] | | | SERVICES, CORE | [address] | | | + + + + + MAGNESIUM, PLASMA (08/31/2017 4:50 PM PDT) + +---------+ + + + | Component | Value | Ref Range | Performed | Pathologist | | | | | At | Signature | + +---------+ + + + | MAGNESIUM,P | 1.5 (L) | 1.6 - 2.6 mg/dL | [facility] | | | LASMA | | | [...] [facility] | [address] | [place] [address] | | | NATALEE WORTHINGTON | VILMA [...]
--- OUTSIDE RECORDS SUMMARY | ~2019-04-04 | XMS | Encounter Summary ---
Demographics + + + | Address | [address] | | | [place] [address] | + + + | Home Phone [...] + + | Author | [facility] [employer] [facility] | + + + | Organization | [facility] [employer] [facility] [...] Providers + +------+ + | Care Senior Informatica Developer Name | Role | Phone | [...] | 2017 | Pass | Services at [facility] | | | | | | [address] | | | | | | [place] Mailcode: | | | | | | [address] [facility] | | | | | | [place], [place] | | | | | | [address] | | | | | | [phone] | | | +--------+ + + + [...]
--- OUTSIDE RECORDS SUMMARY | ~2019-04-04 | XMS | Encounter Summary ---
Demographics + + + | Address | [address] | | | [place] [address] | + + + | Home Phone [...] + | Author | [facility] [employer] [facility] | + + + | Organization | [facility] [employer] [facility] [...] Team Providers + +------+ + | Care Macaroni Maker Name | Role | Phone | [...] | | 2018 | anned | Services [id number] | | | | | [address] | | | | | | Mailcode: [id number] | | | | | | [facility] | | | | | | [place], [place] | | | | | | [address] | | | | | | [phone] | | | +--------+ + + + [...]
--- OUTSIDE RECORDS SUMMARY | ~2019-04-04 | XMS | Encounter Summary ---
Demographics + + + | Address | [address] | | | [place] [address] | + + + | Home Phone [...] + + | Author | [facility] [employer] [facility] | + + + | Organization | [facility] [employer] [facility] [...] Team Providers + +------+ + | Care Woolen Suiting Shrinker Name | Role | Phone | + +------+ + | No Pcp Per Patient | PCP | Unavailable | + +------+ + Encounter Details +--------+ + + + + | Date | Type | Department | Care Team | Description | +--------+ + + + + | 08/31/ | Procedure | Diagnostic Imaging | | | | 2017 | Pass | Services at [facility] | | | | | | [address] | | | | | | [place] Mailcode: | | | | | | [address] [facility] | | | | | | [place], [place] | | | | | | [address] | | | | | | [phone] | | | +--------+ + + + [...]
--- OUTSIDE RECORDS SUMMARY | ~2019-04-04 | XMS | Encounter Summary ---
Demographics + + + | Address | [address] | | | [place] [address] | + + + | Home Phone [...] Author | [facility] | + + + | Organization | [facility] [employer] [facility] | + + [...] Providers + +------+ + | Care District Medical Examiner Name | Role | Phone | + +------+ + | No Pcp Per Patient | PCP | Unavailable | + +------+ + Encounter Details +--------+ + + + + | Date | Type | Department | Care Team | Description | +--------+ + + + + | 11/05/ | Procedure | 6A Intra Op [facility] | | | | 2018 | Pass | [facility] | | | | | | Admitting Desk | | | | | | Located on the 9th | | | | | | floor [address] [facility] | | | | | | [address] | | | | | | [place], [place] | | | | | | [address] | | | +--------+ + + + [...]
--- OUTSIDE RECORDS SUMMARY | ~2019-04-04 | XMS | Encounter Summary ---
Demographics + + + | Address | [address] | | | [place] [address] | + + + | Home Phone [...] + + + | Author | [facility] | + + + | Organization | [facility] [employer] [facility] | + + + | Address | Unknown | + + + | Phone | Unavailable | + + + Support + + +---------+ + | Name | Relationship | Address | Phone | + + +---------+ + | Kaylie Baig | ECON | Unknown | | + + +---------+ + Care Team Providers + +------+ + | Care Music Director Name | Role | Phone | [...] | | | | | Procedures | [place], [place] | [place] | | | | | [place] | [address] | [address] | | | | | SURGERY | Phone: | Phone: | | | | | GASOLINE TESTER | [phone] | [phone] | | | | | [place] REPLACE | Fax: | Fax: | | | | | SKULL | [phone] | [phone] | | | | | PLATE/FLAP | | | | | | | NH REPAIR | | | | | | | SKULL | | | | | | | DEFECT,UP TO | | | | | | | 5CM NH | | | | | | | REPAIR SKULL | | | | | | | DEFECT,>5CM | | | | | | | NH | | | | | | | [...] + + + + | 10/31/ | Restaurant Assistant Manager | [facility] | Magdiel Stock MD | Skull defect | | 2018 | | [facility] [address] | (Primary Dx) | | | | Ave Mailcode: | [place], | | | | | [facility] | [place] [address] | | | | | and [place], | [phone] | | | | | [address] | | | | | | [employer], [place] | | | | | | [address] | | | | | | [phone] | | | +--------+ + + + [...]
--- OUTSIDE RECORDS SUMMARY | ~2019-04-04 | XMS | Encounter Summary ---
Demographics + + + | Address | [address] | | | [place] [address] | + + + | Home Phone [...] | Author | [facility] [employer] [facility] | + + + | Organization | [facility] [employer] [facility] [...] Team Providers + +------+ + | Care Lap Machine Tender Name | Role | Phone | + +------+ + | No Pcp Per Patient | PCP | Unavailable | + +------+ + Encounter Details +--------+ + + + + | Date | Type | Department | Care Team | Description | +--------+ + + + + | 09/24/ | Procedure | Diagnostic Imaging | | | | 2017 | Pass | Services at [facility] | | | | | | [address] | | | | | | [place] Mailcode: | | | | | | [address] | | | | | | [facility] | | | | | | [place], [place] | | | | | | [address] | | | | | | [phone] | | | +--------+ + + + [...]
--- OUTSIDE RECORDS SUMMARY | ~2019-04-04 | XMS | Encounter Summary ---
Demographics + + + | Address | [address] | | | [place] [address] | + + + | Home Phone [...] | Author | [facility] [employer] [facility] | + + + | Organization | [facility] [employer] [facility] | + + + | Address | Unknown | + + + | Phone | Unavailable | + + + Support + + +---------+ + | Name | Relationship | Address | Phone | + + +---------+ + | Kaylie Baig | ECON | Unknown | | + + +---------+ + Care Team Providers + +------+ + | Care Lodge Officer Name | Role | Phone | [...] | | | 2018 | Pass | [facility] | | | | | | Admitting Desk | | | | | | Located on the 9th | | | | | | floor [address] [facility] | | | | | | [address] | | | | | | [place], [place] | | | | | | [address] | | | +--------+ + + + [...]
--- OUTSIDE RECORDS SUMMARY | ~2019-04-04 | XMS | Encounter Summary ---
Demographics + + + | Address | [address] | | | [place] [address] | + + + | Home Phone [...] Author + + + | Author | [facility] [employer] [facility] | + + + | Organization | [facility] [employer] [facility] | + [...] Team Providers + +------+ + | Care Prep Person Name | Role | Phone | [...] 11/05/ | Anesthesia | 6A Intra Op [facility] | Awilda Salgado, | | | 2018 | Event | [facility] | MD [address] | | | | | Admitting Desk | [address] | | | | | Located on the 9 | [place], [place] | | | | | floor [address] [facility] | [address] | | | | | [facility] | [phone] | | | | | [place], [place] | | | | | | [address] | Mariann Victor CRNA | | | | | | [address] | | | | | | [facility] | | | | | | [place], [place] | | | | | | [address] | | | | | | [phone] | | | | | | | [...] | | | | Lumen | Yes; [id number]; 11/09/17; 1154; | | | | | [...]
--- OUTSIDE RECORDS SUMMARY | ~2019-04-04 | XMS | Encounter Summary ---
Demographics + + + | Address | [address] | | | [place] [address] | + + + | Home Phone | | + + + | Preferred Language | Unknown | + + + | Marital Status | Single | + + + | Confucianist Affiliation | PEN | + + + | Race | or | + + + | Ethnic Group | Not or | + + + Author + + + | Author | [facility] [employer] [facility] | + + + | Organization | [facility] [employer] [facility] | + + + | Address | Unknown | + + + | Phone | Unavailable | + + + Support + + +---------+ + | Name | Relationship | Address | Phone | + + +---------+ + | Kaylie Baig | ECON | Unknown | | + + +---------+ + Care Team Providers + +------+ + | Care Content Creation Manager Name | Role | Phone | [...] | | | | | floor [address] [facility] | | | | | | [address] | | | | | | [place], [place] | | | | | | [address] | | | +--------+ + + + [...]
--- OUTSIDE RECORDS SUMMARY | ~2019-04-04 | XMS | Encounter Summary ---
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 with synthetic cranioplasty a nd significant encephalomalacia with extraaxial collection with layering acute blood product s. CT spine shows multiple fractures with most concerning fracture at C7 lamina with canal i ntrusion. Patient being managed in C collar and LAN/WAN ENGINEER. -Developed drainage from previous crani site on 09/23 and concern for possible neuro exam ch sonny. Repeat imaging was stable. Wound sutured at bedside, but now with recurrent wound disc harge. - proceed to OR today for revision - AEDs per primary team or Neurology Sami Maldonado MD Neurosurgery, PGY-2 On-call resident pager [phone] 7:33 AM 10/10/2017 Dallin Deshpande MD - [...] agent? No Dallin Bourgeois MD Neurosurgery PGY1 [id number] enita Pruitt PA-C - 10/09/2017 12:57 PM PDT Trauma [...] - patient unable to come out of LAN/WAN ENGINEER for now - Will likely need [...] previous cranioplasty site. Venita Pruitt PA-C [place] [phone] [facility] [address] [place] [address] Associated attestation - Chaz Munoz MD - 10/09/2017 3:04 PM PDTI saw and examined th e patient today with Venita Pruitt PA-C, and agree with the assessement and plan as outlined in her note. Plan takeback with NSG, we will place Gabriel-oconnor feeding tube at that time. Chaz Munoz MD, FACS Business Communications Instructor, Trauma, Critical Care and Acute Care Surgery Sherine Sarmiento, AGACN - 10/08/2017 6:21 AM PDTFormatting of [...] - patient unable to come out of LAN/WAN ENGINEER for now - Will likely need [...] [place] [phone] [facility] [place] [address] [place] [phone] Associated attestation - Chaz Munoz MD - 10/08/2017 12:16 PM PDTI saw and examined th e patient today with KESHAWN Martin, and agree with the assessement and plan a s outlined in her note. No acute events. Seems to be slowly improving from MS. Appreciate ps ychiatry recs. Chaz Munoz MD, FACS Business Communications Instructor, Trauma, Critical Care and Acute Care Surgery [...] - patient unable to come out fo LAN/WAN ENGINEER for now - Will likely need [...] by patient, but wound remains cl zeferino/dry/intact. Elsmere removed 09/17. #Left hemothorax Chest tube placed [...] G tube next [place]g [address] [facility] [place] [address] [facility] [address] [phone] Associated attestation - Chaz Munoz MD - 10/07/2017 11:15 AM PDTI saw and examined th e patient today with KESHAWN Martin, and agree with the assessement and plan a s outlined in her note. Will consider changing to bolus TF. Plan Gabriel-oconnor tube next week. Chaz Munoz MD, FACS Business Communications Instructor, Trauma, Critical Care and Acute Care Surgery [...] enita Pruitt PA-C - 10/06/2017 8:42 AM PDTFormaileen hodges [...] p atient unable to come out fo LAN/WAN ENGINEER for now Resolved or chronic issues/Plan: [...] by patient, but wound remains duke n/dry/intact. Elsmere removed 09/17. #Left hemothorax Chest tube placed [...] issues, including restraints. Venita Pruitt PA-C [place] [phone] [facility] [address] [place] [address] Associated attestation - Em Cunningham MD - 10/17/2017 10:13 AM PDTI was present and rou nded with the Advanced Practice Provider today . I interviewed and examined the patient. I reviewed the history, as documented today. I agree with the ASHLEY assessment and plan. TBI has remained stable. On lovenox. Will continue haldol per psych.. EM CUNNINGHAM MD [facility] [address] [place] [address] Venita Pruitt PA-C - 10/05/2017 8:38 AM [...] p atient unable to come out fo LAN/WAN ENGINEER for now Resolved or chronic issues/Plan: [...] by patient, but wound remains duke n/dry/intact. Elsmere removed 09/17. #Left hemothorax Chest tube placed [...] issues, including restraints. Venita Pruitt PA-C [place] [phone] [facility] [address] [place] [address] Associated attestation - Shlomo Rosenthal MD - 10/06/2017 7:28 AM PDTFormatting of this note m ight be different from the original. I saw and examined Berlin Temple ([id number]) with the TRAUMA team on 10/05/2017. I [...] and incen tive spirometry for pulmonary toliet. talent acquisition project manager for disposition planning and placement. Shlomo Rosenthal MD Production Cook Division of Trauma and Critical Care [facility], Venita Maciel PA-C - 10/04/2017 6:36 [...] (baseline from previous TBI ) Neck: in Lemmon collar Respiratory: CTA b.l CV: RRR GI: [...] p atient unable to come out fo LAN/WAN ENGINEER for now Resolved or chronic issues/Plan: [...] by patient, but wound remains duke n/dry/intact. Elsmere removed 09/17. #Left hemothorax Chest tube placed [...] issues, including restraints. Venita Pruitt PA-C [place] [phone] [place] [phone] [facility] [address] [place] Count includes the [facility] [phone] Associated attestation - Fidelina Shields MD - [...] and only enteral access. Fidelina Shields MD Business Communications Instructor Division of Trauma, Critical Care and Acute Care Surgery Office: [phone] Pager: [phone] Leonor TorresCB - 10/03/2017 3:13 PM PDT Trauma Acute [...] Refreshable Recent Labs 10/01/17 0525 10/02/17 0510/03/17 0610/03/17 0613 10/03/17 1340 NA 139 [...] (baseline from previous TBI ) Neck: in Lemmon collar Respiratory: CTA bilaterally, no distress CV: [...] p atient unable to come out fo LAN/WAN ENGINEER for now Resolved or chronic issues/Plan: [...] by patient, but wound remains duke n/dry/intact. Elsmere removed 09/17. #Left hemothorax Chest tube placed [...] PDTAttending: I saw and examined Berlin Temple ([id number]) with CB Hair on morning rounds 10/03 and agree with the assessment and plan as outlined in this note and participated in the planning of care. Mental status is slightly better, remains sedated but he is interactive and at least somewh at oriented. Enteral nutrition advancing and, as approaches goal, will turn TPN off. Place ment remains a significant issue. Fidelina Shields MD Business Communications Instructor Division of Trauma, Critical Care and Acute Care Surgery Office: [phone] Pager: [phone] July Banegas PA-C - 10/03/2017 12:58 PM [...] the C-collar when in bed then the LAN/WAN ENGINEER when out of bed until 12/01/17. JULY BANEGAS PA-C [facility] [address] [place] [address] Associated attestation - Magdiel Stock MD - 10/04/2017 6:02 PM PDTI performed a history a nd physical examination of the patient and discussed the management with the advanced practi ce provider, July Banegas PA-C. I reviewed the advanced practice provider's note and agree w ith the plan of care as documented. Continue cervical collar and LAN/WAN ENGINEER for 3 months to ensure fracture healing and prevent development of post-fracture cervical kyphosis. Magdiel Stock MD Business Communications Instructor Department of Neurological Surgery [facility] Sherine Sarmiento AGACNP - 10/02/2017 12:54 PM [...] (baseline from previous TBI ) Neck: in Lemmon collar Respiratory: CTA bilaterally, lungs symmetrical, equal chest wall rise, no retractions CV: RRR GI: non tender, soft, active BS, last BM 09/30 : Patient voiding without difficulty Extremities: no peripheral edema, wiggles toes and toes pink and well perfused Musculoskeletal: 5/5 manager it security strength on right, 3/5 manager it security strength on left FEN: on TPN, transitioning [...] AMS & delirium - numerous evaluations by PATTERN AND CHAIN MAKER with trials of PO - now s/p [...] . - C-collar at all times, use LAN/WAN ENGINEER when OOB - Follow-up with Neurosurgery [...] will decrease scheduled [place]g [phone] Associated attestation - Fidelina Shields MD - 10/02/2017 4:40 PM PDTAttending: I saw and examined Berlin Temple ([id number]) with KESHAWN Alexander on mornin g rounds [...] drawn back to midline position. May need group home enteral access , but is ~4 weeks s/p damage control laparotomy and risk is higher now than it will be in 7- 14 days and if swallow is not improving then will place prior to DC Fidelina Shields MD Business Communications Instructor Division of Trauma, Critical Care and Acute Care Surgery Office: [phone] Pager: [phone] Sherine Sarmiento AGACNP - 10/01/2017 7:27 AM [...] (baseline from previous TBI ) Neck: in Lemmon collar Respiratory: CTA bilaterally, lungs symmetrical, equal chest wall rise, no retractions CV: RRR GI: non tender, soft, active BS, last BM 09/30 : Patient voiding without difficulty Extremities: no peripheral edema, wiggles toes and toes pink and well perfused Musculoskeletal: 5/ manager it security strength on right, 3/5 manager it security strength on left FEN: on TPN Heme/ID: [...] AMS & delirium - numerous evaluations by PATTERN AND CHAIN MAKER with trials of PO - now s/p modified barium swallow x2 which indicates aspiration - continue NPO - PATTERN AND CHAIN MAKER reports that patient working on tongue strength [...] . - C-collar at all times, use LAN/WAN ENGINEER when OOB - Follow-up with Neurosurgery [...] with trauma team and sister. Sherine Sarmiento, [facility] [place]g [phone] Associated attestation - Fidelina Shields MD - 10/02/2017 4:40 PM PDTAttending: I saw and examined Berlin Temple ([id number]) with KESHAWN Alexander on mornin g rounds 10/01/17 and agree with the assessment and plan as outlined in this note and partic ipated in the planning of care. Will trial DHT placement today, CT head unchanged. Suspect somnolence is medication side ef fect and, if persistent, may need to wean antipsychotic doses. Fidelina Shields MD Business Communications Instructor Division of Trauma, Critical Care and Acute Care Surgery Office: [phone] Pager: [phone] Christian Kelley PA-C - 09/30/2017 12:21 PM [...] Fixed and dilated on left Neck: in Lemmon collar Respiratory: CTA bilaterally, lungs symmetrical, equal chest wall rise, no retractions CV: RRR GI: non tender, soft, active BS, last BM 09/30 : Patient voiding without difficulty Extremities: no peripheral edema, wiggles toes and toes pink and well perfused Musculoskeletal: 5/5 manager it security strength on right, 3/5 manager it security strength on left FEN: on TPN Heme/ID: [...] AMS & delirium - numerous evaluations by PATTERN AND CHAIN MAKER with trials of PO - now s/p modified barium swallow x2 which indicates aspiration - continue NPO - PATTERN AND CHAIN MAKER reports that patient working on tongue strength [...] . - C-collar at all times, use LAN/WAN ENGINEER when OOB - Follow-up with Neurosurgery on 10/21 with repeat X-rays #Blunt abdominal trauma #Splenic laceration S/p laparotomies x2. Fascia closed 09/02 Wound vac removed by patient, but wound remains duke n/dry/intact. Elsmere removed 09/17. #Left hemothorax Chest tube placed [...] PDTAttending: I saw and examined Berlin Temple ([id number]) with Christian Kelley PA-C on morning rounds 09/30 and agree with the assessment and plan as outlined in this note and participated in the planning of care. Mentally slower this morning, but non-focal. Received haldol overnight for sleep. Repeat head CT was unchanged so suspect etiology of slowed responsiveness is the antipsychotic dose . PATTERN AND CHAIN MAKER believes that, once collar off, may be able to take PO more effectively and thus will hold off on surgical feeding access. TPN is a temporary solution and if patient remains kaye nable will trial DHT tomorrow. Working with psychiatry for medication recommendations. Fidelina Shields MD Business Communications Instructor Division of Trauma, Critical Care and Acute Care Surgery Office: [phone] Pager: [phone] July Banegas PA-C - 09/30/2017 8:23 AM PDTBrief Neurosurgery Wound Check: Wound is dry, without erythema, not fluctuant. No acute swelling. Nylon in place. Will plan to follow peripherally for wound checks and remove nylons on 10/09. JULY BANEGAS PA-C [facility] [address] [place] [address] hristian Kelley PA-C - 09/29/2017 7:15 AM PDT Trauma [...] and EOMs intact to exam Neck: in Lemmon collar Respiratory: CTA bilaterally, lungs symmetrical, equal [...] AMS & delirium - numerous evaluations by PATTERN AND CHAIN MAKER with trials of PO - now s/p [...] . - C-collar at all times, use LAN/WAN ENGINEER when OOB - Follow-up with Neurosurgery [...] PDTAttending: I saw and examined Berlin Temple ([id number]) with Christian Kelley PA-C on morning rounds 09/29 and agree with the assessment and plan as outlined in this note and participated in the planning of care. Late entry for 09/29/17. Persistent alterations in conscious and dysphagia. Hopefully with ongoing speech therapy a nd when clear to take c-collar off, will improve ability to take PO. While TPN is not an opt imal group home strategy, would prefer not to place surgical feeding tube if possible given r elatively recent damage control laparotomy and high risk of Mr. Temple pulling it out. Have tried DHT several times and it seems to worsen delirium and he pulls it out frequently. Tit ration of haldol in conjunction with psychiatry. Fidelina Shields MD Business Communications Instructor Division of Trauma, Critical Care and Acute Care Surgery Office: [phone] Pager: [phone] Christian Kelley PA-C - 09/28/2017 1:01 PM [...] Requested to call his " old lady" Maglai. I asked if he would like to speak with his sister, and he said, who, ariel? And then the [employer] helped him make a call to her. [...] and EOMs intact to exam Neck: in Lemmon collar Respiratory: CTA bilaterally, lungs symmetrical, equal [...] very agitated today. - EKG today with Lee QTc calculated to be 428 - optimize [...] AMS & delirium - numerous evaluations by PATTERN AND CHAIN MAKER with trials of PO - now s/p [...] . - C-collar at all times, use LAN/WAN ENGINEER when OOB - Follow-up with Neurosurgery [...] to communicate more toyoselin Munoz MD, FACS Business Communications Instructor, Trauma, Critical Care and Acute Care Surgery Chaz Munoz MD - 09/28/2017 10:13 AM PDTTrauma Staff Seen and examined this AM with team. I have concerns abotu behaviour, as he is consistently threatening RN and ancillary staff, even attempting swings. Behavior seems worse at night. I would favor increasing night time Haldol dose, and following EKGs. Chaz Munoz MD, FACS Business Communications Instructor, Trauma, Critical Care and Acute Care Surgery [...] Dallin Bourgeois MD Neurosurgery PGY1 | Pager #[phone] Christian Begum PA-C - 09/27/2017 7:31 AM [...] able to have a linear conversation briefly PATTERN AND CHAIN MAKER requesting repeat barium swallow Current meds: I [...] incision healing , suture c/d/I Neck: in LAN/WAN ENGINEER Respiratory: unlabored on room air, lungs [...] AMS & delirium - numerous evaluations by PATTERN AND CHAIN MAKER with trials of PO - now s/p [...] . - C-collar at all times, use LAN/WAN ENGINEER when OOB - Follow-up with Neurosurgery [...] cotinue TPN for now. EM CUNNINGHAM MD [facility] [address] [place] [address] Christian Kelley PA-C - 09/26/2017 6:48 AM [...] posterior scalp crani incision c/d/I Neck: in Lemmon collar Respiratory: unlabored on room air CV: [...] AMS & delirium - numerous evaluations by PATTERN AND CHAIN MAKER with trials of PO - now s/p [...] . - C-collar at all times, use LAN/WAN ENGINEER when OOB - Follow-up with Neurosurgery [...] Continue NPO and TPN. EM CUNNINGHAM MD [facility] [address] [place] [address] Christian Kelley PA-C - 09/25/2017 7:49 AM [...] HEENT: EOMs intact to exam Neck: in LAN/WAN ENGINEER brace Respiratory: unlabored on room air [...] AMS & delirium - numerous evaluations by PATTERN AND CHAIN MAKER with trials of PO - now s/p [...] . - C-collar at all times, use LAN/WAN ENGINEER when OOB - Follow-up with Neurosurgery [...] workup encephalopathy. LFTS wnl. Continue TPN. EM E MARJORIE, MD [facility] [address] [place] [address] Christian Kelley PA-C - 09/24/2017 11:07 AM [...] with agitation Having difficulty swallowing again - PATTERN AND CHAIN MAKER to re-eval and obtain barium swallow Current [...] HEENT: EOMs intact to exam Neck: in LAN/WAN ENGINEER brace Respiratory: CTA bilaterally, lungs symmetrical, equal chest wall rise, no retractions CV: RRR GI: non distended, last BM 09/23 : good urine output Extremities: SCD's in place, no peripheral edema, wiggles toes and toes pink and well perfu sed Musculoskeletal: 5/5 strength in bilateral manager it security (but with slightly weaker on left) , [...] PRN seroquel dose QHS for insomnia/restlessness at [facility] - Haldol 5mg q12hr prn [...] likely 2/2 AMS & delirium - Failed PATTERN AND CHAIN MAKER eval 09/19 & 09/20, made NPO & dobhoff reinserted 09/21 but pulled overnight - Per PATTERN AND CHAIN MAKER on 09/21, ok for therapeutic pureed with [...] . - C-collar at all times, use LAN/WAN ENGINEER when OOB - Follow-up with Neurosurgery [...] Start abx for dehiscence. EM CUNNINGHAM MD [facility] [address] [place] [address] Ginette Campos PA-C - 09/24/2017 9:31 AM [...] 4 extremities Unable to assess drift. Motor: Track Superintendent Bicep Tricep Delt R 5 5 5 [...] further questions or concerns. Ginette Campos PA-C [facility] [address] [place] [id number] ELLGabriel Atkins AGACNP - 09/23/2017 6:32 AM [...] hiscence, draining minimal serosang fluid Neck: in LAN/WAN ENGINEER brace Respiratory: unlabored on room air [...] PRN seroquel dose QHS for insomnia/restlessness at [facility] - Repeat ECG 09/22 with [...] likely 2/2 AMS & delirium - Failed PATTERN AND CHAIN MAKER eval 09/19 & 09/20, made NPO & dobhoff reinserted 09/21 but pulled overnight - Per PATTERN AND CHAIN MAKER on 09/21, ok for therapeutic pureed with [...] . - C-collar at all times, use LAN/WAN ENGINEER when OOB - Follow-up with Neurosurgery on 10/21 with repeat X-rays #Blunt abdominal trauma #Splenic laceration S/p laparotomies x2. Fascia closed 09/02 Wound vac removed by patient, but wound remains duke n/dry/intact. Elsmere removed 09/17. #Left hemothorax Chest tube placed [...] dysphagia & delir ium improves Sherine Sarmiento, [facility] Pg [phone] Dallin Deshpande MD - 09/22/2017 8:03 AM [...] Dallin Bourgeois MD Neurosurgery PGY1 | Pager #[phone] herine Atkins, AGACN - 09/22/2017 6:52 AM PDTFormatting of [...] 24hr events: - Therapeutic purees initiated by PATTERN AND CHAIN MAKER yesterday - Trickle feeds via Dobbhoff, pt pulled Dobbhoff yesterday evening- not replaced - DATA MODELER called around 2130 for new left facial [...] sluggish. Slight left facial droop Neck: in Lemmon collar Respiratory: unlabored on room air CV: [...] PRN seroquel dose QHS for insomnia/restlessness at [facility]- - Repeat ECG 09/22 with Q Tc WNL. - Haldol 5mg q12hr prn for severe agitation #Substance abuse, concern for Alcohol withdrawal - CIWA discontinued 09/08, not scoring. - Thiamine & folate started 09/21 #Dysphagia, risk for aspiration #Protein calorie malnutirtion - likely 2/2 AMS & delirium - Failed PATTERN AND CHAIN MAKER eval 09/19 & 09/20, made NPO & dobhoff reinserted 09/21 but pulled overnight - Per PATTERN AND CHAIN MAKER on 09/21, ok for therapeutic pureed with [...] . - C-collar at all times, use LAN/WAN ENGINEER when OOB - Follow-up with Neurosurgery [...] when dysphagia & delirium improves Sherine Sarmiento, [facility] Pg [phone] Associated attestation - Shiva Nieto MD,MPH - [...] Trauma, Critical Care & Acute Care Surgery [facility] [phone] Sami Black - 09/21/2017 10:25 PM PDTBrief [...] in the morning. Plan: -neuro checks; page [phone] for any decline in neurological examination -pain control -Hard C collar at all times and place LAN/WAN ENGINEER prior to mobilizing OOB. Anticipated duration of Collar/LAN/WAN ENGINEER is 12 weeks -repeat CT head for any new decline in neurological exam and page [phone] -NPO at midnight tonight -please hold tonight's planned dose of Lovenox -further recommendations in the morning Sami Black MD, PhD PGY-3 Resident Neurosurgery [id number] signed by Sami Black at 09/21/2017 10:50 [...] Provena placem ent 24hr events: - Failed PATTERN AND CHAIN MAKER eval again yest morning, continued NPO - [...] reactive. Dobbhoff tube in place Neck: in Lemmon collar Respiratory: unlabored on room air CV: [...] likely 2/2 AMS & delirium - Failed PATTERN AND CHAIN MAKER eval 09/19 & 09/20, made NPO & dobhoff reinserted yesterday - Trickle feeds started this am at 20ml/hr, increase very slowly by 10ml every 12 hrs to go al of 75 due to hx of mesenteric hematomas and previous inability to tolerate TF - Per PATTERN AND CHAIN MAKER today, ok for therapeutic pureed with nectar [...] . - C-collar at all times, use LAN/WAN ENGINEER when OOB - Follow-up with Neurosurgery on 10/21 with repeat X-rays #Blunt abdominal trauma #Splenic laceration S/p laparotomies x2. Fascia closed 09/02 Wound vac removed by patient, but wound remains duke n/dry/intact. Elsmere removed 09/17. #Left hemothorax Chest tube placed [...] & delirium i [place] Pg [phone] Associated attestation - Fidelina Shields MD - 09/21/2017 9:36 PM PDTAttending: I saw and examined Berlin Temple ([id number]) with KESHAWN Alexander on mornin g rounds [...] enough to re-trial PO. Fidelina Shields MD Business Communications Instructor Division of Trauma, Critical Care and Acute Care Surgery Office: [phone] Pager: [phone] Sherine Sarmiento, AGACNP - 09/20/2017 7:41 AM PDTFormatting of [...] haldol given yesterday afternoon for agitation - PATTERN AND CHAIN MAKER paged to re-eval in afternoon after concern for aspiration, made NPO by PATTERN AND CHAIN MAKER - DARNELL SOLANO Current meds: I have [...] right pupil 3 and reactive Neck: in Lemmon collar Respiratory: unlabored on room air CV: [...] thick/pureed d iet. Made NPO yesterday by PATTERN AND CHAIN MAKER after concern for aspiration. This is likely 2/2 waxing & wan ing delirium & AMS - PATTERN AND CHAIN MAKER re-eval today recommend continue NPO d/t overt clinical signs of aspiration - Place Dobbhoff tube and restart feeds, slowly progress to goal - Stop TPN when tolerating tube feeds - PATTERN AND CHAIN MAKER will follow closely, as his AMS improves [...] . - C-collar at all times, use LAN/WAN ENGINEER when OOB - Follow-up with Neurosurgery [...] dysphagia & delirium i mproves Sherine Sarmiento, [facility] Pg [phone] Associated attestation - Fidelina Shields MD - 09/20/2017 9:34 PM PDTAttending: I saw and examined Berlin Temple ([id number]) with KESHAWN Alexander on mornin g rounds [...] dispo planning when able. Fidelina Shields MD Business Communications Instructor Division of Trauma, Critical Care and Acute Care Surgery Office: [phone] Pager: [phone] Mary Medrano MD,MPH - 09/19/2017 6:22 AM [...] downgraded from thin to thick liquids by PATTERN AND CHAIN MAKER Current meds: I have independently reviewed current [...] intact, small Right fluctuant pseudomeningocele Neck: in Lemmon collar Respiratory: unlabored on room air CV: [...] DHT on09/19. - Cleared for diet by PATTERN AND CHAIN MAKER, tolerating purees, 749 Calories yesterday - Restart Calorie count: if taking >700 again will be OK for full po diet, otherwise replac e DHT and restart TF - Stop TPN tomorrow regardless - Still considering repeat CT abdomen/pelvis #Dysphagia DHTreplaced overnight 09/07. TF held due to emesis and possible ileus, aspiration risk. T pulled overnight on 09/18 - PATTERN AND CHAIN MAKER as able Resolved or chronic issues/Plan: #BIG 3 TBI #Right synthetic cranioplasty Neurosurgery consulted. Non-operative management. Last head CT 09/12 stable. Expected pseudo meningocele. Left-sided deficits consistent with baseline. - Stat head CT for any neurologic decline #C7 bilateral lamina fractures #C6-T2 spinous process fractures Neurosurgery consulted. Non-operative management. Upright cervical X-rays completed on 09/14 . - C-collar at all times, use LAN/WAN ENGINEER when OOB - Follow-up with Neurosurgery [...] M.D., M.P.H. Neurological Surgery Resident PGY-1 Pager: [phone] Associated attestation - Fidelina Shields MD - 09/19/2017 1:36 PM PDTAttending: I saw and examined Berlin Temple ([id number]) with the residents on morning rounds 09/19/17 and agree with the assessment and plan as outlined in this note and participated in the plan aahsish of care. Improving po intake, will titrate TPN. Plan to DC TPN tomorrow and transition to PO vs PO + TF depending on calorie counts. Once of restraints will begin looking for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 Component | Value | Ref Range | Performed | Pathologist | | | | | At | Signature | + + + + + + | VENTRICULAR | 60 | bpm | INSU DEPT | | | RATE | | [...] DEPT OF | [address] | [place], [place] | | | CARDIOLOGY | [address] | [address] | | + + + + + [...] DEPT OF | [address] | [place], [place] | | | CARDIOLOGY | [address] | [address] | | + + + + + [...] | | | LABORATORY | | | [facility] | | | SERVICES, | | | [...] | + + + + + | [facility] | [address] | [place] [address] | | | SERVICES, CORE | VILMA [...] | + + + + + | [facility] | [address] | [place] [address] | | | SERVICES, CORE | [address] | | | + + + + + 12 LEAD ECG (11/27/2017 11:03 AM PDT) + + + + + + | Component | Value | Ref Range | Performed | Pathologist | | | | | At | Signature | + + + + + + | VENTRICULAR | 56 | bpm | INSU DEPT | | | RATE | | [...] + + | [facility] | [address] | [place], [place] | | | CARDIOLOGY | [address] | [address] | | + + + + + [...] Note | + + | Service Account, Edvivo In Interface - 11/26/2017 12:36 PM PDT [...] + | [facility] | [address] | [place] [address] | | | [facility] | | | | + + + [...] | + + + + + | [facility] | [address] | [place] [address] | | | SERVICES, CORE | PARK [...] | + + + + + | [facility] | [address] | [place] [address] | | | SERVICES, CORE | [address] | | | + + + + + TRIGLYCERIDES, PLASMA (11/25/2017 5:30 AM PDT) + +-------+ + + + | Component | Value | Ref Range | Performed | Pathologist | | | | | At | Signature | + +-------+ + + + | TRIGLYCERID | 119 | <150 mg/dL | INSU | | | ES | | | [...] [facility] | [address] | [place] [address] | | | SERVICES, CORE | PARK [...] | + + + + + | [facility] | [address] | [place] [address] | | | SERVICES, CORE | VILMA [...] | | | LABORATORY | | | [facility] | | | SERVICES, | | | [...] [facility] | [address] | [place] [address] | | | SERVICES, CORE | PARK [...] | + + + + + | [facility] | [address] | [place] [address] | | | NATALEE WORTHINGTON | VILMA [...] DEPT OF | [address] | [place], [place] | | | CARDIOLOGY | [address] | [address] | | + + + + + [...] DEPT OF | [address] | [place], [place] | | | CARDIOLOGY | [address] | [address] | | + + + + + [...] [facility] | [address] | [place], [place] | | | CARDIOLOGY | [address] | [address] | | + + + + + [...] | + + + + + | [facility] DEPT OF | [address] [facility] | [facility] [place] [place] | | | CARDIOLOGY | [address] | [address] | | + + + + + [...] | | | LABORATORY | | | [facility] | | | SERVICES, | | | [...] the MDRD equation recommended by the | [facility] | | National Kidney Disease Education [...] | + + + + + | [facility] | [address] | [place] [address] | | | SERVICES, CORE | [address] | | | + + + + + MAGNESIUM, PLASMA (11/21/2017 4:17 AM PDT) + +-------+ + + + | Component | Value | Ref Range | Performed | Pathologist | | | | | At | Signature | + +-------+ + + + | MAGNESIUM,P | 2.1 | 1.6 - 2.6 mg/dL | [facility] | | | [facility] | | | [...] [facility] | [address] | [place] [address] | | | SERVICES, NATALEE | [address] [...] Note | + + | Service Account, Edvivo In Interface - 11/19/2017 11:26 AM PDT [...] DEPT OF | [address] | [place], [place] | | | CARDIOLOGY | [address] | [address] | | + + + + + [...] DEPT OF | [address] | [place], [place] | | | CARDIOLOGY | [address] | [address] | | + + + + + [...] LABORATORY | [address] | [place] [address] | | | SERVICES, CORE | [address] [...] | + + + + + | [facility] | [address] | [place] [address] | | | SERVICESNATALEE | [address] [...] + | [facility] - | [address] | [place] [address] | | | [place] | | | [...] [facility] | [address] | [place] [address] | | | SERVICES, CORE | [address] [...] | + + + + + | [facility] | [address] | [place] [address] | | | SERVICES, NATALEE | [address] [...] | | | LABORATORY | | | [facility] | | | SERVICES, | | | [...] [facility] | [address] | [place] [address] | | | SERVICES, CORE | PARK [...] [facility] | [address] | [place] [address] | | | SERVICES, CORE | VILMA [...] DEPT OF | [address] | [place], [place] | | | CARDIOLOGY | [address] | [address] | | + + + + + [...] DEPT OF | [address] | [place] | | | CARDIOLOGY | [address] | [address] | | + + + + + [...] | + + + + + | [facility] | [address] | [place] [address] | | | NATALEE WORTHINGTON | VIL[address] [...] OF | [address] | [place], [place] | | | CARDIOLOGY | [facility] | [address] | | + + + + + [...] | | | LABORATORY | | | [facility] | | | SERVICES, | | | [...] + + | Performing | Address | City/State/[facility] | Phone Number | | Organization | | | | + + + + + | [facility] | [address] | [place] [address] | | | NATALEE WORTHINGTON | [address] [...] [facility] | [address] | [place] [address] | | | SERVICES, CORE | VILMA [...] + + | [facility] | [address] | [place], [place] | | | CARDIOLOGY | [address] | [address] | | + + + + + [...] | + + + + + | [facility] | [address] | [place] [address] | | | SERVICES, CORE | PARK [...] | | | LABORATORY | | | [facility] | | | SERVICES, | | | [...] | + + + + + | [facility] | [address] | [place] [address] | | | SERVICES, CORE | [address] [...] + | [facility] | [address] | [place] [address] | | | [place] | | | [...] Note | + + | Service Account, Edvivo In Interface - 11/12/2017 1:46 PM PDT [...] | + + + + + | [facility] DEPT OF | [address] | [place], [place] | | | CARDIOLOGY | [address] | [address] | | + + + + + [...] | + + + + + | [facility] | [address] | [place] [address] | | | NATALEE WORTHINGTON | [address] [...] | | SERUM - | | | [place] | | | SPEP | | | [...] | + + + + + | [facility] - | [address] | [place] [address] | | | [place] | | | [...] [facility] | [address] | [place], [place] | | | CARDIOLOGY | [address] | [address] | | + + + + + [...] | 09/30/2013. | LABORATORY | | | SERVICESNATALEE | + + + + + + + + | Performing | Address | City/State/Zipcode | Phone Number | | Organization | | | | + + + + + | [facility] | [address] | [place] [address] | | | SERVICES, NATALEE | PARK [...] + | [facility] | [address] | [place] [address] | | | [place] | | | [...] [facility] | [address] | [place] [address] | | | NATALEE WORTHINGTON | [address] [...] | + + + + + | [facility] | [address] [facility] | [place] [address] | | | SERVICES, CORE | [address] [...] [facility] | [address] | [place] [address] | | | SERVICES, CORE | [address] [...] | | | LABORATORY | | | [facility] | | | SERVICES, | | | [...] the MDRD equation recommended by the | [facility] | | National Kidney Disease Education [...] | + + + + + | [facility] | [address] [facility] | [place] [address] | | | SERVICES, CORE | PARK [...] [facility] | [address] | [place] [address] | | | NATALEE WORTHINGTON | VILMA [...] | + + + + + | [facility] | [address] | [place] [address] | | | SERVICES, CORE | VILMA [...] | | | LABORATORY | | | [facility] | | | SERVICES, | | | [...] | + + + + + | [facility] | [address] | [place] [address] | | | SERVICES, CORE | VILMA [...] DEPT OF | [address] | [place], [place] | | | CARDIOLOGY | [address] | [address] | | + + + + + [...] | + + + + + | [facility] | [address] | [place] [address] | | | NATALEE WORTHINGTON | [address]ARK [...] | | | LABORATORY | | | [facility] | | | SERVICES, | | | [...] [facility] | [address] | [place] [address] | | | SERVICES, CORE | [address] [...] [facility] | [address] | [place] [address] | | | SERVICES, CORE | [address]ARK [...] | | | LABORATORY | | | [facility] | | | SERVICES, | | | [...] the MDRD equation recommended by the | [facility] | | National Kidney Disease Education [...] | + + + + + | [facility] | [address] | [place] [address] | | | NATALEE WORTHINGTON | VILMA [...] Note | + + | Service Account, Shutter Guardian Res In Interface - 11/08/2017 2:31 PM [...] [facility] | [address] | [place] [address] | | | SERVICES, NATALEE | [address] [...] | | | LABORATORY | | | [facility] | | | SERVICES, | | | [...] | + + + + + | [facility] | [address] | [place] [address] | | | ELIN, NATALEE | [address] [...] DEPT OF | [address] | [place], [place] | | | CARDIOLOGY | [address] | [address] | | + + + + + [...] report as now presented. Final signature: Master Bneder MD | | 11/07/2017 4:04 PM Preliminary: [...] IMPRESSION | by: PAULO CAVAZOS | | SRIDEVI | | | | 11-07-2017 12:30:43 | [...] DEPT OF | [address] | [place], [place] | | | CARDIOLOGY | [address] | [address] | | + + + + + [...] | | | LABORATORY | | | [facility] | | | SERVICES, | | | [...] | + + + + + | [facility] | [address] [facility] | [place] [address] | | | SERVICES, CORE | [address] [...] LABORATORY | [address] | [place] [address] | | | SERVICES, CORE | PARK [...] + + + + | PRODUCT | [id number] | | [facility] | | | UNIT [...] + + + + | EXPIRATION | [id number] | | [facility] | | | DATE [...] + + + + | BLOOD | [id number] | | [facility] | | | PRODUCT [...] | + + + + + | [facility] | [address] | [place] [address] | | | SERVICES, | [address] [...] + + + + | PRODUCT | [id number] | | [facility] | | | UNIT [...] + + + + | EXPIRATION | [id number] | | [facility] | | | DATE [...] + + + + | BLOOD | [id number] | | [facility] | | | PRODUCT [...] | + + + + + | [facility] | [address] | [place] [address] | | | SERVICES, | [address] [...] | + + + + + | [facility] | [address] | [place] [address] | | | NATALEE WORTHINGTON | [address] | | | + [...] | + + + + + | [facility] | [address] | [place] [address] | | | NATALEE WORTHINGTON | [address] [...] | | | LABORATORY | | | [facility] | | | SERVICES, | | | [...] | + + + + + | [facility] | [address] | [place] [address] | | | SERVICES, CORE | [address] | | | + + + + + OPERATION RECORD (11/06/2017 12:27 AM PDT) + + | Procedure Note | + + | Magdiel Stock MD - 11/06/2017 12:27 AM PDT Date of Service: 11/05/2017 Attending | | Surgeon: Magdiel Stock MD Kiln Remover(s): Rg Aiken MD | | Preoperative Diagnoses: [...] his head was placed in a horseshoe 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 Once [place] | | skull was reached circumferentially around the prior incision, a #1 [place] was used | | to subperiosteally dissect [...] for this encounter.Sonal Nunez, | | [id number] [place], [place] | | [id number] Orina, MDJB/MODLDD: 11/05/2017 20:38:01DT: 11/06/2017 | | 00:27:33Job #: [id number] | |HATTIE/DUC | | | | | | /[id number] | + + CT HEAD WO CONTRAST [...] Surgeon: Magdiel | | | MD Dayami Kiln Remover: Rg Aiken MD Pre-op Diagnosis: | | [...] PGY-4 Neurological Surgery Pager | | | [phone] | | + + + CAPILLARY BLOOD [...] [facility] | [address] | [place], [place] | | | [facility] | [address] | [address] | | | TESTS | | | [...] | | | GLUCOSE, | | | [facility] | | | POC | | | [...] [facility] | [address] | [place], [place] | | | GLORIA GENAO OF [employer] | [facility] | [address] | | | TESTS | | | [...] Note | + + | Service Account, Edvivo In Interface - 11/05/2017 11:31 AM PDT [...] | + + + + + | [facility] [employer] | [address] | [place] [address] | | | SERVICES, CORE | [address] [...] [facility] | [address] | [place] [address] | | | SERVICES, CORE | [address] [...] | | | LABORATORY | | | [facility] | | | SERVICES, | | | [...] the MDRD equation recommended by the | [facility] | | National Kidney Disease Education [...] | + + + + + | [facility] | [address] | [place] [address] | | | SERVICES, CORE | PARK [...] 1.00 | 0.90 - 1.20 INR | [facility] | | | | | | [...] | + + + + + | [facility] | [address] | [place] [address] | | | NATALEE WORTHINGTON | [address] [...] + + + + | PRODUCT | [id number] | | [facility] | | | UNIT [...] + + + + | EXPIRATION | [id number] | | [facility] | | | DATE [...] + + + + | BLOOD | [id number] | | [facility] | | | PRODUCT [...] | + + + + + | [facility] | [address] | [place] [address] | | | SERVICES, | [address] [...] + + + + | PRODUCT | [id number] | | [facility] | | | UNIT [...] + + + + | EXPIRATION | [id number] | | [facility] | | | DATE [...] + + + + | BLOOD | [id number] | | [facility] | | | PRODUCT [...] | + + + + + | [facility] | [address] [facility] [address] | [place] [address] | | | SERVICES, | [address] [...] [facility] | [address] | [place] [address] | | | NATALEE WORTHINGTON | [address] [...] [facility] | [address] | [place] [address] | | | SERVICES, | [address] [...] | + + + + + | [facility] [employer] | [address] | [place] [address] | | | SERVICES, | [address] [...] | + + + + + | [facility] | [address] [facility] | [place] [address] | | | SERVICES, CORE | [address] | | | + + + + + 12 LEAD ECG (11/04/2017 8:35 AM PDT) + + + + + + | Component | Value | Ref Range | Performed | Pathologist | | | | | At | Signature | + + + + + + | VENTRICULAR | 71 | bpm | [facility] | | | RATE | | [...] [facility] | [address] | [place], [place] | | | CARDIOLOGY | [address] | [id number] | | + + + + + [...] | + + + + + | [facility] | [address] | [place] [address] | | | SERVICES, CORE | [address] [...] | + + + + + | [facility] | [address] | [place] [address] | | | SERVICES, CORE | PARK [...] + | [facility] | [address] | [place] [address] | | | [place] | | | [...] | + + + + + | [facility] | [address] | [place] [address] | | | NATALEE WORTHINGTON | PARK [...] [facility] | [address] | [place] [address] | | | SERVICES, CORE | [address] [...] | | | LABORATORY | | | [place] | | | SERVICES, | | | [...] the MDRD equation recommended by the | [facility] | | National Kid[employer] Disease Education [...] | + + + + + | [facility] | [address] | [place] [address] | | | NATALEE WORTHINGTON | [address] [...] [facility] | [address] | [place] [address] | | | NATALEE WORTHINGTON | PARK [...] | + + + + + | [facility] | [address] | [place] [place] [address] | | | SERVICES, CORE | VILMA [...] | | | LABORATORY | | | TONGAN | | | SERVICES, | | | [...] [facility] | [address] | [place] [address] | | | SERVICES, CORE | PARK [...] [facility] | [address] | [place] [address] | | | SERVICES, CORE | PARK [...] | | | LABORATORY | | | TONGAN | | | SERVICES, | | | [...] | + + + + + | [facility] | [address] | [place] [address] | | | NATALEE WORTHINGTON | VILMA [...] DEPT OF | [address] | [place], [place] | | | CARDIOLOGY | [address] | [address] | | + + + + + [...] [facility] | [address] | [place] [address] | | | SERVICES, CORE | PARK [...] | | | LABORATORY | | | TONGAN | | | SERVICES, | | | [...] the MDRD equation recommended by the | INSU | | National Kidney Disease Education Program. [...] | + + + + + | [facility] | [address] | [place] [address] | | | NATALEE WORTHINGTON | VILMA [...] DEPT OF | [address] | [place], [place] | | | CARDIOLOGY | [address] | [address] | | + + + + + [...] | | | LABORATORY | | | TONGAN | | | SERVICES, | | | [...] | + + + + + | [facility] | [address] | [place] [address] | | | NATALEE WORTHINGTON | VILMA [...] | + + + + + | [facility] | [address] | [place] [address] | | | SERVICES, CORE | PARK [...] MARQU[facility] | [address] | [place], [place] | | | GLORIA GENAO OF CARE | [address] | [address] | | | TESTS | | | [...] | + + + + + | [facility] | [address] | [place] [address] | | | NATALEE WORTHINGTON | PARK [...] | | | LABORATORY | | | TONGAN | | | SERVICES, | | | [...] | + + + + + | [facility] | [address] | [place] [address] | | | SERVICES, CORE | VILMA [...] | | + +---------+ + + | [facility] RADIOLOGY | | | | | [facility] | | | | [...] [facility] | [address] | [place] | | | [facility] | [address] | [address] | | | TESTS | | | [...] [facility] | [address] | [place] [address] | | | SERVICES, CORE | PARK [...] | | | LABORATORY | | | TONGAN | | | SERVICES, | | | [...] | + + + + + | [facility] | [address] | [place] [address] | | | ELIN, NATALEE | PARK [...] [facility]YUSH | [address] | [place], [place] | | | [facility] | [address] | [address] | | | TESTS | | | [...] | + + + + + | [facility] DEPT OF | [address] | [place], [place] | | | CARDIOLOGY | [address] | [address] | | + + + + + [...] [facility] | [address] | [place], [place] | | | [facility] | [address] | [address] | | | TESTS | | | [...] RAPHAELAM | [address] | [place], [place] | | | [facility] | [address] | [address] | | | TESTS | | | [...] | + + + + + | [facility] | [address] | [place] [address] | | | SERVICES, CORE | PARK [...] + | [facility] | [address] | [place] [address] | | | [place] | | | [...] | + + + + + | [facility] | [address] | [place] [address] | | | SERVICES, CORE | VILMA [...] [facility] | [address] | [place] [address] | | | SERVICES, CORE | PARK [...] | + + + + + | [facility] | [address] | [place] [address] | | | SERVICES, CORE | VILMA [...] | | | LABORATORY | | | TONGAN | | | SERVICES, | | | [...] | + + + + + | [facility] | [address] | [place] [address] | | | SERVICES, CORE | VILMA [...] | + + + + + | [facility] | [address] | [place] [address] | | | SERVICES, CORE | VILMA [...] (H) | 70 - 99 mg/dL | [facility] - | | | GLUCOSE, | [...] P[facility]ETT | [address] | [place], [place] | | | [facility] CARE | [address] | [address] | | | TESTS | | | [...] [facility] | [address] | [place], [place] | | | [facility] | [address] | [address] | | | TESTS | | | [...] At | + + + | EXAM: NH CHEST PICC LINE CHECK HISTORY: picc done [...] Interface - 10/27/2017 6:29 PM PDT EXAM: NH CHEST | | PICC LINE CHECK HISTORY: [...] Javier Valverde MD 10/27/2017 6:28 PM Preliminary: FranciscoJ avier Valverde MD | | Dictation initiated: Francisco [...] correct | | | patient, procedure, equipment, legal support assistant and site/side marked as | | | [...] vein. Catheter lot number: | | | [id number] with a length of 55 cm was [...] [facility] | [address] | [place], [place] | | | GLORIA GENAO OF [facility] | [address] | [address] | | | TESTS | | | [...] [facility] DEPT OF | [address] | [place], [place] | | | CARDIOLOGY | [facility] | [address] | | + + + + + CAPILLARY BLOOD GLUCOSE (NO CHG), POC (10/27/2017 6:10 AM PDT) + +-------+ + + + | Component | Value | Ref Range | Performed | Pathologist | | | | | At | Signature | + +-------+ + + + | BLOOD | 82 | 70 - 99 mg/dL | [facility] - | | | GLUCOSE, | [...] RAPHAELAM | [address] | [place], [place] | | | [facility]ARE | [address] | [address] | | | TESTS | | | [...] [facility] | [address] | [place] [address] | | | SERVICES, CORE | PARK [...] | | | LABORATORY | | | TONGAN | | | SERVICES, | | | [...] the MDRD equation recommended by the | INSU | | National Kidney Disease Education Program. [...] | + + + + + | [facility] | [address] | [place] [address] | | | NATALEE WORTHINGTON | VILMA [...] MAR[facility] | [address] | [place] | | | [facility] | [address] | [address] | | | TESTS | | | [...] P[facility]ETT | [address] | [place], [place] | | | [facility] C[facility] | [address] | [address] | | | TESTS | | | [...] MAR[facility] | [address] | [place], [place] | | | [facility] | [address] | [address] | | | TESTS | | | [...] | + + + + + | [facility] | [address] | [place] [address] | | | NATALEE WORTHINGTON | PARK [...] | | | LABORATORY | | | TONGAN | | | SERVICES, | | | [...] | + + + + + | [facility] | [address] | [place] [address] | | | SERVICES, CORE | VILMA [...] MAR[facility] | [address] | [place], [place] | | | [facility] | [address] | [address] | | | TESTS | | | [...] | | | LABORATORY | | | TONGAN | | | SERVICES, | | | [...] | + + + + + | [facility] | [address] | [place] [address] | | | SERVICES, CORE | VILMA [...] MAR[facility] | [address] | [place], [place] | | | [facility] | [address] | [address] | | | TESTS | | | [...] DEPT OF | [address] | [place], [place] | | | CARDIOLOGY | [address] | [address] | | + + + + + [...] [facility] | [address] | [place], [place] | | | [facility] | [address] | [address] | | | TESTS | | | [...] DEPT OF | [address] | [place], [place] | | | CARDIOLOGY | [address] | [address] | | + + + + + [...] | + + + + + | [facility] | [address] | [place] [address] | | | SERVICES, CORE | PARK [...] + | [facility] | [address] | [place] [address] | | | [place] | | | [...] [facility] | [address] | [place] [address] | | | NATALEE WORTHINGTON | VILMA [...] | + + + + + | [facility] | [address] | [place] [address] | | | SERVICES, CORE | PARK [...] [facility] | [address] | [place] [address] | | | SERVICES, CORE | PARK [...] | + + + + + | [facility] | [address] | [place] [address] | | | SERVICES, CORE | VILMA [...] [facility] | [address] | [place] [address] | | | SERVICES, CORE | PARK [...] | + + + + + | [facility] | [address] | [place] [address] | | | SERVICES, CORE | VILMA [...] [facility] | [address] | [place] [address] | | | SERVICES, CORE | VILMA [...] [facility] | [address] | [place] [address] | | | SERVICES, CORE | PARK [...] | + + + + + | [facility] | [address] | [place] [address] | | | SERVICES, CORE | VILMA [...] | + + + + + | [facility] | [address] | [place] [address] | | | SERVICES, CORE | VILMA [...] | | | LABORATORY | | | TONGAN | | | SERVICES, | | | [...] | + + + + + | [facility] | [address] | [place] [address] | | | SERVICES, CORE | PARK [...] | | | correct patient, procedure, equipment, legal support assistant and site/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 Catheter lot number: [id number] with a length of 55 | | [...] At | + + + | EXAM: NH CHEST 1 VIEW HISTORY: PICC placed-pt ready. [...] Interface - 10/24/2017 3:43 PM PDT EXAM: NH CHEST 1 | | VIEW HISTORY: PICC [...] + + + | [facility] | [address] | [place], [place] | | | GL[facility]IA GE[facility]O [facility] | [address] | [address] | | | TESTS | | | [...] | | Surgical Critical Care, PGY7 Pager: [phone] | | + + + CAPILLARY BLOOD [...] [facility] | [address] | [place], [place] | | | [facility] | [address] | [address] | | | TESTS | | | [...] [facility] | [address] | [place] | | | [facility] | [facility] | [address] | | | TESTS | | | [...] | | | LABORATORY | | | TONGAN | | | SERVICES, | | | [...] | + + + + + | [facility] | [address] | [place] [address] | | | SERVICES, CORE | [address] | | | + + + + + MAGNESIUM, PLASMA (10/24/2017 5:08 AM PDT) + +-------+ + + + | Component | Value | Ref Range | Performed | Pathologist | | | | | At | Signature | + +-------+ + + + | MAGNESIUM,P | 1.7 | 1.6 - 2.6 mg/dL | [facility] | | | LASMA | | [...] [facility] | [address] | [place] [address] | | | SERVICES, CORE | PARK [...] + + + | [facility] | [address] | [place], [place] | | | GL[facility]IA GENAO [facility] CARE | [address] | [address] | | | TESTS | | | [...] | + + + + + | [facility] | [address] | [place] [address] | | | SERVICES, CORE | PARK [...] | | | LABORATORY | | | TONGAN | | | SERVICES, | | | [...] | + + + + + | [facility] [employer] | [address] | [place] [address] | | | SERVICES, NATALEE | VILMA [...] DEPT OF | [address] | [place], [place] | | | CARDIOLOGY | [address] | [address] | | + + + + + IR GASTROSTOMY TUBE EXCHANGE (10/22/2017 2:42 PM PDT) + + | Specimen | + + | | + + + + + | Narrative | Performed At | + + + | Procedure: Gastrostomy tube exchange Primary attending | [facility] | | burial vault maker: Shade Goodwin M.D. Preoperative diagnosis: | RADIOLOGY VOICE | | Malfunctioning Gastrostomy tube Postoperative diagnosis: Same | RECOGNITION | | Operations: Operation 1. Removal of existing Gastrostomy tube | | | over a guide wire Operation 2. Placement of 24 North Korean GABRIEL | | | gastrostomy over guide [...] a stiff glide wire the new 24 [place] Korean gastrostomy tube was | | | inserted. [...] Procedure: | | Gastrostomy tube exchangePrimary attending burial vault maker: Shade Goodwin, | | BrynPreoperative diagnosis: Malfunctioning Gastrostomy tubePostoperative diagnosis: | | SameOperations:Operation 1. Removal of existing Gastrostomy tube over a guide | | wireOperation 2. Placement of 24 [place] Korean GABRIEL gastrostomy over guide wireNo sedation was [...] glide wire the | | new 24 [place] Korean gastrostomy tube was inserted. The position of [...] stiff g lide wire the new 24 [place] Korean | |gastrostomy tube was inserted. The position [...] Note | + + | Service Account, Shutter Guardian Res In Interface - 10/22/2017 10:34 AM [...] DEPT OF | [address] | [place], [place] | | | CARDIOLOGY | [address] | [address] | | + + + + + [...] [facility] | [address] | [place] [address] | | | NAATLEE WORTHINGTON | [address] | | | [...] | | | LABORATORY | | | TONGAN | | | SERVICES, | | | [...] | + + + + + | [facility] | [address] | [place] [address] | | | SERVICES, CORE | VILMA [...] DEPT OF | [address] | [place], [place] | | | CARDIOLOGY | [address] | [address] | | + + + + + [...] | | | LABORATORY | | | TONGAN | | | SERVICES, | | | [...] | + + + + + | [facility] | [address] | [place] [address] | | | SERVICES, CORE | VILMA [...] | + + + + + | [facility] | [address] | [place] [address] | | | SERVICES, CORE | PARK [...] | | SRIDEVI | | | | 10-20-2017 12:10:47 | [...] [facility] | [address] | [place] | | | CARDIOLOGY | [address] | [address] | | + + + + + [...] | + + + + + | [facility] | [address] | [place] [address] | | | SERVICES, NATALEE | VILMA [...] | | | LABORATORY | | | TONGAN | | | SERVICES, | | | [...] | + + + + + | [facility] | [address] | [place] [address] | | | SERVICES, CORE | PARK [...] + + | [facility] DEPT OF | [address] | [place], [place] | | | CARDIOLOGY | [address] | [address] | | + + + + + [...] | | | LABORATORY | | | TONGAN | | | SERVICES, | | | [...] | + + + + + | [facility] | [address] | [place] [address] | | | SERVICES, CORE | PARK [...] | + + + + + | [facility] | [address] | [place] [address] | | | SERVICES, CORE | PARK [...] DEPT OF | [address] | [place], [place] | | | CARDIOLOGY | [address] | [address] | | + + + + + [...] | | | LABORATORY | | | TONGAN | | | SERVICES, | | | [...] [facility] | [address] | [place] [address] | | | SERVICES, CORE | PARK [...] | + + + + + | [facility] | [address] | [place] [address] | | | SERVICES, CORE | VILMA [...] | + + | Service Account, Kostas Dydra In Interface - 10/15/2017 3:58 PM PDT [...] DEPT OF | [address] | [place], [place] | | | CARDIOLOGY | [address] | [address] | | + + + + + [...] [facility] | [address] | [place], [place] | | | [facility] | [address] | [address] | | | TESTS | | | [...] [facility] | [address] | [place] [address] | | | NATALEE WORTHINGTON | VILMA [...] [facility] | [address] | [place], [place] | | | [facility] | [address] | [address] | | | TESTS | | | [...] DEPT OF | [address] | [place], [place] | | | CARDIOLOGY | [address] | [address] | | + + + + + [...] [facility] | [address] | [place] [address] | | | NATALEE WORTHINGTON | [address] [...] | | | LABORATORY | | | TONGAN | | | SERVICES, | | | [...] (H) | 4 - 11 mmol/L | [facility] | | | GAP(ALB | | | [...] | + + + + + | [facility] [employer] | [address] | [place] [address] | | | NATALEE WORTHINGTON | [address]IL[address] [...] | + + + + + | [facility] | [address] | [place] [address] | | | NATALEE WORTHINGTON | PARK [...] [facility] | [address] | [place], [place] | | | [facility] | [address] | [address] | | | TESTS | | | [...] [facility] | [address] | [place] | | | [facility] | [address] | [address] | | | TESTS | | | [...] | + + + + + | [facility] | [address] | [place] [address] | | | SERVICES, NATALEE | PARK [...] | | | LABORATORY | | | TONGAN | | | SERVICES, | | | [...] | + + + + + | [facility] | [address] | [place] [address] | | | SERVICES, CORE | [address] | | | + + + + + OPERATION RECORD (10/12/2017 8:50 PM PDT) + + | Procedure Note | + + | Pilar Cotto MD - 10/12/2017 8:50 PM PDT Date of Service: 10/12/2017 | | Attending Surgeon: Chaz Munoz MD Kiln Remover(s): Randell Dixon M.D., | | fellow. George [...] saline. We then | | placed a 19-North Korean drain deep into the abscess cavity, tracking [...] 10/12/2017 19:50:06DT: 10/12/2017 20:50:54Job #: | | [id number] | + + X-RAY PORTABLE CHEST 1 VIEW (10/12/2017 7:50 PM PDT) + + | Specimen | + + | | + + + + + | Narrative | Performed At | + + + | EXAM: NH CHEST 1 VIEW HISTORY: Evaluate endotracheal tube [...] Interface - 10/13/2017 9:04 AM PDT EXAM: NH CHEST 1 | | VIEW HISTORY: Evaluate [...] [facility] | [address] | [place], [place] | | | [facility] | [address] | [address] | | | TESTS | | | [...] now | | presented. Final signature: Mason aSnchez MD 10/12/2017 5:04 PM Preliminary: Dae Richardson [...] [facility] | [address] | [place] [address] | | | SERVICES, CORE | PARK [...] | | | LABORATORY | | | TONGAN | | | SERVICES, | | | [...] the MDRD equation recommended by the | INSU | | National Kidney Disease Education Program. [...] [facility] | [address] | [place] [address] | | | SERVICES, CORE | PARK [...] | + + + + + | [facility] | [address] | [place] [address] | | | NATALEE WORTHINGTON | VILMA [...] [facility] OF | [address] | [place], [place] | | | CARDIOLOGY | [address] | [address] | | + + + + + [...] DEPT OF | [address] | [place], [place] | | | CARDIOLOGY | [address] | [address] | | + + + + + [...] | + + + + + | [facility] | [address] | [place] [address] | | | SERVICES, CORE | PARK [...] [facility] | [address] | [place] [address] | | | SERVICES, CORE | PARK [...] | | | LABORATORY | | | TONGAN | | | SERVICES, | | | [...] + + | Performing | Address | City/State/[facility] | Phone Number | | Organization | | | | + + + + + | [facility] | [address] | [place] [address] | | | NATALEE WORTHINGTON | [address] | | | + + + + + PROCEDURE NOTE (10/10/2017 10:00 PM PDT) + + + | Narrative | Performed At | + + + | Darius Link MD 10/12/2017 11:11 AM OPERATIVE REPORT | | | DATE OF OPERATION: 10/10/2017 ATTENDING SURGEON: 1. Dr. Munoz | | | BALLER TENDER: 1. Darius Link MD INDICATIONS: Dysphagia | | | and need for extermination supervisor nutrition access PREOPERATIVE DIAGNOSIS: | | | 1.Dysphagia and need for group home nutrition access | | | POSTOPERATIVE DIAGNOSIS: [...] | | | [place] [id number] Chief Resident | | | Neurosurgery | [...] [facility] | [address] | [place] [address] | | | SERVICES, CORE | PARK [...] | | | LABORATORY | | | TONGAN | | | SERVICES, | | | [...] the MDRD equation recommended by the | [facility] | | National Kidney Disease Education [...] | + + + + + | [facility] | [address] | [place] [address] | | | SERVICES, CORE | [address] | | | + + + + + MAGNESIUM, PLASMA (10/10/2017 2:02 PM PDT) + +-------+ + + + | Component | Value | Ref Range | Performed | Pathologist | | | | | At | Signature | + +-------+ + + + | MAGNESIUM,P | 1.9 | 1.6 - 2.6 mg/dL | [facility] | | | LISA | | | [...] [facility] | [address] | [place] [address] | | | SERVICES, NATALEE | [address] | | | + + + + + OPERATION RECORD (10/10/2017 12:40 PM PDT) + + | Procedure Note | + + | Magdiel Stock MD - 10/10/2017 12:40 PM PDT Date of Service: 10/10/2017 Attending | | Surgeon: Magdiel Stock MD Kiln Remover(s): Cecilia Hernandez, | | . Preoperative Diagnoses: [...] This is a 67-year-old male. Please see [facility] for full details. He | [...] the note for this encounter.Sonal Nunez MDOHSU [id number] [facility] | | [place] [phone] Orina, MDFAH/MODLDD: | | 10/10/2017 11:52:15DT: 10/10/2017 12:40:41Job #: [id number] | | | | | |I was present for the critical portions of the procedure as described in the note for this encounter. | | | |Magdiel Stock MD | | | |Magdiel Stock MD | |[address] | |[address] [facility] [address] | |[facility] | |[place] [address] | |[phone] | | | | | |Magdiel Stock MD | |FAH/MODL | | | | | | /[id number] | + + X-RAY ABDOMEN 1 VIEW [...] + | [facility] | [address] | [place] [address] | | | [place] | | | [...] + | [facility] - | [address] | [place] [address] | | | [place] | | | | + + + [...] 1+ Pseudomonas aeruginosa Refer to culture | [facility] - | | collected 10/10/17 at 0903 [...] + | [facility] | [address] | [place] [address] | | | [facility] | | | | + + + [...] + | [facility] - | [address] [place] [address] | [place] [address] | | | [place] | | | [...] + | [facility] | [address] | [place] [address] | | | [place] | | | [...] Gram Stain: No squamous epithelial cells | [place] | | Many polymorphonuclear cells No organisms seen | | + + + + + + + + | Performing | Address | City/State/Zipcode | Phone Number | | Organization | | | | + + + + + | [facility] | [address] [place] [address] | [place] [address] | | | [place] | | | | + + + [...] + | [facility] | [address] | [place] [address] | | | [place] | | | [...] Gram Stain: No squamous epithelial cells | [facility] | | Few polymorphonuclear cells No organisms seen | | + + + + + + + + | Performing | Address | City/State/Zipcode | Phone Number | | Organization | | | | + + + + + | [facility] | [address] | [place] [address] | | | [facility] | | | | + + [...] | | cells No organisms seen | [place] [facility] | + + + + + + + + | Performing | Address | City/State/Zipcode | Phone Number | | Organization | | | | + + + + + | [facility] | [address] [place] [address] | [place] [address] | | | [place] | | | | + + + [...] + | [facility] | [address] | [place] [address] | | | [place] | | | [...] Gram Stain: No squamous epithelial cells | [facility] [facility] | | Moderate polymorphonuclear cells No organisms seen | | + + + + + + + + | Performing | Address | City/State/Zipcode | Phone Number | | Organization | | | | + + + + + | [facility] | [address] | [place] [address] | | | [place] | | | | + + + [...] + | [facility] | [address] | [place] [address] | | | [place] | | | | + + + [...] + | [facility] | [address] | [place] [address] | | | [place] | | | [...] Gram Stain: No squamous epithelial cells | [facility] | | Moderate polymorphonuclear cells No organisms seen | | + + + + + + + + | Performing | Address | City/State/Zipcode | Phone Number | | Organization | | | | + + + + + | [facility] | [address] | [place] [address] | | | [place] | | | | + + + [...] detected | [facility] - | | | [place] | + + + + + + + + | Performing | Address | City/State/Zipcode | Phone Number | | Organization | | | | + + + + + | [facility] | [phone] | [place] [address] | | | [place] | | | | + + + [...] + | [facility] - | [address] | [place] [address] | | | [place] | | | [...] + | [facility] | [address] | [place] [address] | | | [place] | | | | + + + [...] + | [facility] | [address] | [place] [address] | | | [place] | | | | + + + [...] | + + + + + | [facility] [employer] [facility] | [address] | [place] [address] | | | SERVICES, CORE | VILMA [...] [facility] | [address] | [place] [address] | | | NATALEE WORTHINGTON | VILMA [...] | + + + + + | [facility] | [address] | [place] [address] | | | SERVICES, CORE | PARK [...] | | | LABORATORY | | | TONGAN | | | SERVICES, | | | [...] | + + + + + | [facility] | [address] | [place] [address] | | | SERVICES, CORE | VILMA [...] [facility] | [address] | [place], [place] | | | CARDIOLOGY | [address] | [address] | | + + + + + [...] + + + + | PRODUCT | [id number] | | [facility] | | | UNIT [...] + + + + | EXPIRATION | [id number] | | [facility] | | | DATE [...] + + + + | BLOOD | [id number] | | [facility] | | | PRODUCT [...] [facility] | [address] | [place] [address] | | | SERVICES, | [address] [...] + + + + | PRODUCT | [id number] | | [facility] | | | UNIT [...] + + + + | EXPIRATION | [id number] | | [facility] | | | DATE [...] + + + + | BLOOD | [id number] | | [facility] | | | PRODUCT [...] | + + + + + | [facility] | [address] | [place] [address] | | | SERVICES, | [address] [...] | + + + + + | [facility] | [address] | [place] [address] | | | SERVICES, | [address] [...] [facility] | [address] | [place] [address] | | | SERVICES, | [address] [...] [facility] | [address] | [place] [address] | | | SERVICES, | [address] [...] valves (2.5 - 3.5) INR APTT | [facility], CORE | | Therapeutic Range: (75 - 120) sec | | | Heparin levels of 0.35 - 0.7 U/mL | | + + + + + + + + | Performing | Address | City/State/Zipcode | Phone Number | | Organization | | | | + + + + + | [facility] | [address] | [place] [address] | | | ELIN, NATALEE | VILMA [...] DEPT OF | [address] | [place], [place] | | | CARDIOLOGY | [address] | [address] | | + + + + + [...] | + + | Service Account, Kostas Dydra In Interface - 10/08/2017 10:47 AM PDT [...] [facility] | | | | | [facility] US | | | | [...] [facility] | [address] | [place], [place] | | | [facility] | [address] | [address] | | | TESTS | | | [...] | + + + + + | [facility] | [address] | [place] [address] | | | SERVICES, CORE | PARK [...] | + + + + + | [facility] | [address] | [place] [address] | | | SERVICES, CORE | PARK [...] | | | LABORATORY | | | TONGAN | | | SERVICES, | | | [...] the MDRD equation recommended by the | [facility] | | National Kidney Disease Education [...] | + + + + + | [facility] | [address] | [place] [address] | | | SERVICES, CORE | VILMA [...] (H) | 70 - 99 mg/dL | [facility] - | | | GLUCOSE, | [...] + + + + + | [facility] | [address] | [place], [place] | | | [facility] GE[facility]O OF CARE | [facility] | [address] | | | TESTS | | | [...] [facility] | [address] | [place], [place] | | | GL[facility]IA GE[facility] | [address] | [address] | | | TESTS | | | [...] - [facility] | [address] | [place], [place] | | | [facility] GENAO OF CARE | [facility] | [address] | | | TESTS | | | [...] (H) | 70 - 99 mg/dL | [facility] - | | | GLUCOSE, | [...] P[facility]ETT | [address] | [place], [place] | | | [facility] | [facility] | [address] | | | TESTS | | | [...] [facility] | [address] | [place], [place] | | | GL[facility]IA GE[facility] OF [facility] | [address] | [address] | | | TESTS | | | [...] | + + + + + | [facility] | [address] | [place] [address] | | | SERVICES, CORE | [address] | | | + + + + + MAGNESIUM, PLASMA (10/07/2017 5:05 AM PDT) + +-------+ + + + | Component | Value | Ref Range | Performed | Pathologist | | | | | At | Signature | + +-------+ + + + | MAGNESIUM,P | 2.1 | 1.6 - 2.6 mg/dL | [facility] | | | LASMA | | | [...] [facility] | [address] | [place] [address] | | | SERVICES, NATALEE | VILMA [...] | | | LABORATORY | | | TONGAN | | | SERVICES, | | | [...] | + + + + + | [facility] | [address] | [place] [address] | | | SERVICES, NATALEE | VILMA [...] [facility] | [address] | [place], [place] | | | [facility] GENAO OF CARE | [facility] | [address] | | | TESTS | | | [...] RAPHAELAM | [address] | [place], [place] | | | [facility]O OF [facility] | [address] | [address] | | | TESTS | | | [...] DEPT OF | [address] | [place], [place] | | | CARDIOLOGY | [address] | [address] | | + + + + + [...] [facility] | [address] | [place], [place] | | | GL[facility] GE[facility]O OF CARE | [address] | [address] | | | TESTS | | | [...] | + + + + + | [facility] | [address] | [place] [address] | | | SERVICES, CORE | PARK [...] [facility] | [address] | [place] [address] | | | SERVICES, CORE | PARK [...] | | | LABORATORY | | | TONGAN | | | SERVICES, | | | [...] | + + + + + | [facility] [employer] | [address] [facility] | [place] [address] | | | SERVICES, NATALEE | VILMA [...] [facility] | [address] | [place], [place] | | | GL[facility]IA GE[facility] OF [employer] | [facility] | [address] | | | TESTS | | | | + + + + + CAPILLARY BLOOD GLUCOSE (NO CHG), POC (10/06/2017 1:04 AM PDT) + +-------+ + + + | Component | Value | Ref Range | Performed | Pathologist | | | | | At | Signature | + +-------+ + + + | BLOOD | 91 | 70 - 99 mg/dL | [facility] - | | | GLUCOSE, | [...] [facility] | [address] | [place], [place] | | | [facility] | [address] | [address] | | | TESTS | | | [...] + + | Performing | Address | City/State/[facility] | Phone Number | | Organization | | | | + + + + + | [facility] | [address] | [place], [place] | | | GLORIA GENAO OF [facility] | [facility] | [address] | | | TESTS | | | [...] - [facility] | [address] | [place], [place] | | | GL[facility]IA GE[facility]O OF [facility] | [facility] | [address] | | | TESTS | | | [...] | + + + + + | [facility] DEPT OF | [address] | [place], [place] | | | CARDIOLOGY | [address] | [address] | | + + + + + [...] [facility] | [address] | [place] [address] | | | NATALEE WORTHINGTON | VILMA [...] | + + + + + | [facility] | [address] [facility] | [place] [address] | | | NATALEE WORTHINGTON | PARK [...] | | | LABORATORY | | | TONGAN | | | SERVICES, | | | [...] | + + + + + | [facility] | [address] | [place] [address] | | | SERVICES, CORE | PARK [...] [facility] | [address] | [place], [place] | | | [facility] | [address] | [address] | | | TESTS | | | [...] - [facility] | [address] | [place], [place] | | | [facility] GE[facility] OF CARE | [facility] | [address] | | | TESTS | | | [...] (H) | 70 - 99 mg/dL | [facility] - | | | GLUCOSE, | [...] PICKETT | [address] | [place], [place] | | | GL[facility]IA GENAO OF CARE | [address] | [address] | | | TESTS | | | [...] [facility] | [address] | [place], [place] | | | GL[facility]IA GE[facility] | [address] | [address] | | | TESTS | | | [...] - [facility] | [address] | [place], [place] | | | [facility] | [facility] | [address] | | | TESTS | | | [...] | + + + + + | [facility] | [address] | [place] [address] | | | SERVICES, CORE | VILMA [...] [facility] | [address] | [place] [address] | | | SERVICES, CORE | PARK [...] | | | LABORATORY | | | TONGAN | | | SERVICES, | | | [...] the MDRD equation recommended by the | [facility] | | National Kidney Disease Education [...] | + + + + + | [facility] | [address] | [place] [address] | | | ELIN, NATALEE | VILMA [...] (H) | 70 - 99 mg/dL | [facility] - | | | GLUCOSE, | [...] [facility] | [address] | [place], [place] | | | GLORIA GE[facility]O OF [facility] | [facility] | [address] | | | TESTS | | | [...] P[facility] | [address] | [place], [place] | | | [facility] | [address] | [address] | | | TESTS | | | [...] [facility] | [address] | [place] [address] | | | SERVICESNATALEE | [address] [...] by | | | | | | [id number] | | | | | | Rogelio Pickard [facility],[place] | | | | | | [address] | | | | | | [phone].Vide[employer]lowlab. | | | | | | Gui [...] [facility] | [address] | [place], [place] | | | [facility] | | [address] | | + + + + + [...] | + + + + + | [facility] | [address] [facility] | [place] [address] | | | SERVICES, CORE | VILMA [...] | + + + + + | [facility] | [address] | [place] [address] | | | SERVICES, CORE | VILMA [...] modified from | [facility] | | original psychologist clinical's approved specifications. The performance | LABORATORY | | of the SHEAR TENDER HIV Combo test, with or without confirmation, was not | SERVICES, | | tested in pediatric patients less than 2 years of age. [facility] | SPECIAL IMM + | | [...] | + + + + + | [facility] | [address] | [place] [address] | | | SERVICES, SPECIAL | VILMA [...] MAR[facility] | [address] | [place], [place] | | | [facility] | [address] | [address] | | | TESTS | | | [...] - [facility] | [address] | [place], [place] | | | [facility] | [address] | [address] | | | TESTS | | | [...] [facility] | [address] | [place] [address] | | | SERVICES, NATALEE | VILMA [...] | + + + + + | [facility] | [address] | [place] [address] | | | SERVICES, CORE [...] | | | LABORATORY | | | TONGAN | | | SERVICES, | | | [...] the MDRD equation recommended by the | [facility] | | National Kidney Disease Education [...] | + + + + + | [facility] | [address] | [place] [address] | | | SERVICES, CORE | VILMA [...] 96 | 70 - 99 mg/dL | [facility] - | | | GLUCOSE, | [...] [facility] | [address] | [place], [place] | | | [facility]O OF [facility] | [address] | [address] | | | TESTS | | | [...] [facility] | [address] | [place], [place] | | | [facility] | [address] | [address] | | | TESTS | | | [...] + + | [facility] | [address] | [place], [place] | | | CARDIOLOGY | [address] | [address] | | + + + + + [...] At | + + + | EXAM: [place] CHEST 1 VIEW HISTORY: Evaluate PICC placement [...] Note | + + | Service Account, Edvivo In Interface - 10/02/2017 2:07 PM PDT EXAM: [place] CHEST 1 | | VIEW HISTORY: Evaluate [...] + | [facility] | [address] [facility] [address] | [place], [place] | | | [facility] | [address] | [address] | | | TESTS | | | | + + + + + X-RAY PORTABLE CHEST 1 VIEW (10/02/2017 8:56 AM PDT) + + | Specimen | + + | | + + + + + | Narrative | Performed At | + + + | EXAM: [place] CHEST 1 VIEW HISTORY: new leukocytosis, eval [...] Interface - 10/02/2017 10:27 AM PDT EXAM: [place] CHEST 1 | | VIEW HISTORY: new [...] + + + | [facility] | [address] | [place], [place] | | | [facility] | [address] | [address] | | | TESTS | | | [...] [facility] | [address] | [place] [address] | | | SERVICES, CORE | PARK [...] | + + + + + | [facility] | [address] | [place] [address] | | | NATALEE WORTHINGTON | VILMA [...] | | | LABORATORY | | | TONGAN | | | SERVICES, | | | [...] | + + + + + | [facility] | [address] | [place] [address] | | | SERVICES, CORE | VILMA [...] [facility] | [address] | [place], [place] | | | GL[facility]IA GENAO OF CARE | [address] | [address] | | | TESTS | | | [...] [facility] | [address] | [place], [place] | | | [facility] | [address] | [address] | | | TESTS | | | [...] Note | + + | Service Account, Shutter Guardian Res In Interface - 10/01/2017 2:15 PM [...] [facility] | [address] | [place], [place] | | | GL[facility]IA GENAO OF CARE | [address] | [address] | | | TESTS | | | [...] Note | + + | Service Account, Edvivo In Interface - 10/01/2017 11:34 AM PDT [...] [facility] | [address] | [place], [place] | | | GLORIA GENAO OF [facility] | [facility] | [address] | | | TESTS | | | [...] | + + + + + | [facility] | [address] | [place] [address] | | | SERVICES, CORE | [address] | | | + + + + + MAGNESIUM, PLASMA (10/01/2017 5:25 AM PDT) + +-------+ + + + | Component | Value | Ref Range | Performed | Pathologist | | | | | At | Signature | + +-------+ + + + | MAGNESIUM,P | 2.0 | 1.6 - 2.6 mg/dL | [facility] | | | LASMA | | [...] [facility] | [address] | [place] [address] | | | SERVICES, NATALEE | VILMA [...] | | | LABORATORY | | | TONGAN | | | SERVICES, | | | [...] | + + + + + | [facility] | [address] | [place] [address] | | | SERVICES, CORE | VILMA [...] [facility] | [address] | [place], [place] | | | [facility] | [address] | [address] | | | TESTS | | | [...] + + | [facility] | [address] | [place], [place] | | | [facility] | [address] | [address] | | | TESTS | | | [...] DEPT OF | [address] | [place], [place] | | | CARDIOLOGY | [address] | [address] | | + + + + + [...] BASE: | | Postsurgical changes from right liam-cranioplasty Mastoids and middle ears are | | [...] [facility] | [address] | [place], [place] | | | GLORIA GENAO OF [facility] | [address] | [address] | | | TESTS | | | [...] - [facility] | [address] | [place], [place] | | | [facility] | [address] | [address] | | | TESTS | | | [...] | + + + + + | [facility] | [address] | [place] [address] | | | SERVICES, CORE | VILMA [...] [facility] | [address] | [place] [address] | | | SERVICES, CORE | PARK [...] | | | LABORATORY | | | TONGAN | | | SERVICES, | | | [...] the MDRD equation recommended by the | [facility] | | National Kidney Disease Education Program. [...] | + + + + + | [facility] | [address] | [place] [address] | | | NATALEE WORTHINGTON | VILMA [...] (H) | 70 - 99 mg/dL | [facility] - | | | GLUCOSE, | [...] RAPHAELAM | [address] | [place], [place] | | | GLORIA GENAO OF [facility] | [address] | [address] | | | TESTS | | | [...] [facility] | [address] | [place], [place] | | | GLORIA GENAO OF [facility] | [facility] | [address] | | | TESTS | | | | + + + + + CAPILLARY BLOOD GLUCOSE (NO CHG) POC (09/29/2017 12:46 PM PDT) + +---------+ [...] [facility] | [address] | [place], [place] | | | [facility] | [facility] | [address] | | | TESTS | | | [...] DEPT OF | [address] | [place], [place] | | | CARDIOLOGY | [address] | [address] | | + + + + + [...] [facility] | [address] | [place], [place] | | | GL[facility] GENAO OF CARE | [address] | [address] | | | TESTS | | | [...] | + + + + + | [facility] | [address] | [place] [address] | | | SERVICES, NATALEE | PARK [...] | | | LABORATORY | | | TONGAN | | | SERVICES, | | | [...] [facility] | [address] | [place] [address] | | | SERVICES, CORE | VILMA [...] | + + + + + | [facility] | [address] | [place] [address] | | | SERVICESNATALEE | [address] [...] RAPHAELAM | [address] | [place], [place] | | | GLORIA GENAO OF CARE | [facility] | [address] | | | TESTS | | | [...] (H) | 70 - 99 mg/dL | [facility] - | | | GLUCOSE, | [...] [facility] | [address] | [place], [place] | | | [facility] | [address] | [address] | | | TESTS | | | [...] P[facility]T | [address] | [place], [place] | | | GLORIA GENAO OF [facility] | [facility] | [address] | | | TESTS | | | [...] DEPT OF | [address] | [place], [place] | | | CARDIOLOGY | [address] | [address] | | + + + + + [...] + + + | [facility] | [address] | [place], [place] | | | [facility] | [address] | [address] | | | TESTS | | | [...] | + + + + + | [facility] | [address] | [place] [address] | | | NATALEE WORTHINGTON | VILMA [...] | + + + + + | [facility] | [address] | [place] [address] | | | ELIN, NATALEE | VILMA [...] | | | LABORATORY | | | TONGAN | | | SERVICES, | | | [...] | + + + + + | [facility] | [address] | [place] [address] | | | SERVICES, CORE | VILMA [...] [facility]YUSH | [address] | [place], [place] | | | GLORIA GENAO OF [facility] | [address] | [address] | | | TESTS | | | [...] + | [facility] - [facility] | [address] [facility] [address] | [place], [place] | | | [facility] | [address] | [address] | | | TESTS | | | [...] MARQU[facility] | [address] | [place], [place] | | | GL[facility]IA GENAO OF CARE | [address] | [address] | | | TESTS | | | [...] [facility]USH | [address] | [place], [place] | | | [facility] | [address] | [address] | | | TESTS | | | [...] | + + + + + | [facility] | [address] | [place] [address] | | | SERVICES, CORE | PARK [...] | + + + + + | [facility] | [address] [address] | [place] [address] | | | SERVICES, CORE | PARK [...] | | | LABORATORY | | | TONGAN | | | SERVICES, | | | [...] the MDRD equation recommended by the | [facility] | | National Kidney Disease Education Program. [...] | + + + + + | [facility] | [address] | [place] [address] | | | SERVICES, CORE | VILMA [...] (H) | 70 - 99 mg/dL | [facility] - | | | GLUCOSE, | [...] [facility] | [address] | [place], [place] | | | [facility] | [address] | [address] | | | TESTS | | | [...] [facility] | [address] | [place], [place] | | | [facility] GE[facility] CARE | [address] | [address] | | | TESTS | | | [...] DEPT OF | [address] | [place], [place] | | | CARDIOLOGY | [address] | [address] | | + + + + + [...] + + + | SELENA PICKETT | [address] | [place], [place] | | | [facility] | [address] | [address] | | | TESTS | | | [...] [facility] | [address] | [place], [place] | | | [facility] | [address] | [address] | | | TESTS | | | [...] - PIYUSH | [address] | [place], [place] | | | [facility] | [address] | [address] | | | TESTS | | | [...] | + + + + + | [facility] | [address] | [place] [address] | | | SERVICES, NATALEE | PARK [...] | + + + + + | [facility] | [address] | [place] [address] | | | SERVICES, CORE | VILMA [...] | | | LABORATORY | | | TONGAN | | | SERVICES, | | | [...] | + + + + + | [facility] | [address] | [place] [address] | | | SERVICES, CORE | VILMA [...] (H) | 70 - 99 mg/dL | [facility] - | | | GLUCOSE, | [...] PICKETT | [address] | [place], [place] | | | [facility] | [address] | [address] | | | TESTS | | | [...] now presented. | | | Final signature: Daneil Armijo MD 09/25/2017 12:31 PM Preliminary: | [...] | + + + + + | [facility] [employer] | [address] | [place] [address] | | | SERVICES, CORE | VILMA [...] [facility] | [address] | [place] [address] | | | SERVICES, CORE | PARK [...] | | | LABORATORY | | | TONGAN | | | SERVICES, | | | [...] [facility] | [address] | [place] [address] | | | SERVICES, NATALEE | VILMA [...] [facility] | [address] | [place], [place] | | | CARDIOLOGY | [address] | [address] | | + + + + + [...] Note | + + | Service Account, Shutter Guardian Res In Interface - 09/24/2017 4:09 PM [...] | + + + + + | [facility] | [address] | [place] [address] | | | SERVICES, CORE | VILMA [...] | | | LABORATORY | | | TONGAN | | | SERVICES, | | | [...] [facility] | [address] | [place] [address] | | | SERVICES, CORE | PARK [...] | + + + + + | [facility] | [address] | [place] [address] | | | SERVICES, NATALEE | PARK [...] [facility] | [address] | [place] [address] | | | SERVICES, CORE | PARK [...] | + + + + + | [facility] | [address] | [place] [address] | | | NATALEE [place] | VILMA [...] | | | LABORATORY | | | TONGAN | | | SERVICES, | | | [...] | + + + + + | [facility] | [address] | [place] [address] | | | SERVICES, CORE | VILMA [...] MARQUAM | [address] | [place], [place] | | | [facility] | [address] | [address] | | | TESTS | | | [...] + + + + | [facility] | [address] | [place], [place] | | | GLORIA GENAO OF [facility] | [address] | [address] | | | TESTS | | | [...] Service Account, Kostas Res In Interface - 09/22/2017 4:25 PM [...] | + + + + + | [facility] | [address] | [place] [address] | | | SERVICES, CORE | VILMA [...] | + + + + + | [facility] DEPT OF | [address] | [place], [place] | | | CARDIOLOGY | [address] | [address] | | + + + + + [...] | + + + + + | [facility] | [address] | [place] [address] | | | SERVICES, CORE | PARK [...] [facility] | [address] | [place] [address] | | | SERVICES, NATALEE | VILMA [...] | | | LABORATORY | | | TONGAN | | | SERVICES, | | | [...] | + + + + + | [facility] | [address] | [place] [address] | | | ELIN, NATALEE | VILMA [...] - [facility] | [address] | [place], [place] | | | [facility] | [address] | [address] | | | TESTS | | | [...] | + + + + + | [facility] | [address] | [place] [address] | | | NATALEE WORTHINGTON | VILMA [...] | + + + + + | [facility] | [address] | [place] [address] | | | SERVICES, CORE | PARK [...] | | | LABORATORY | | | TONGAN | | | SERVICES, | | | [...] | + + + + + | [facility] | [address] | [place] [address] | | | SERVICES, CORE | [address] | | | + + + + + X-RAY ABD LTD FEEDING TUBE EVAL (09/20/2017 7:23 PM PDT) + + | Specimen | + + | | + + + + + | Narrative | Performed At | + + + | EXAM: ABD LTD FEEDING TUBE EVAL INDICATION: DHT placement | [facility] | | TECHNIQUE: Semi-upright portable view [...] Note | + + | Service Account, Shutter Guardian Res In Interface - 09/20/2017 7:50 PM [...] ABD LTD FEEDING TUBE EVAL INDICATION: confirm Dobbvlad | [facility] | | placement TECHNIQUE: Semi-upright [...] Note | + + | Service Account, Edvivo In Interface - 09/20/2017 5:17 PM PDT [...] [facility] | [address] | [place], [place] | | | CARDIOLOGY | [address] | [address] | | + + + + + [...] | + + + + + | [facility] | [address] | [place] [address] | | | SERVICES, CORE | PARK [...] [facility] | [address] | [place] [address] | | | NATALEE WORTHINGTON [...] | | | LABORATORY | | | TONGAN | | | SERVICES, | | | [...] | + + + + + | [facility] [employer] | [address] | [place] [address] | | | SERVICES, NATALEE | VILMA [...] | + + + + + | [facility] | [address] | [place] [address] | | | SERVICES, CORE | [address] | | | + + + + + MAGNESIUM, PLASMA (09/19/2017 4:32 AM PDT) + +-------+ + + + | Component | Value | Ref Range | Performed | Pathologist | | | | | At | Signature | + +-------+ + + + | MAGNESIUM,P | 2.2 | 1.6 - 2.6 mg/dL | [facility] | | | LASMA | | [...] [facility] | [address] | [place] [address] | | | SERVICES, NATALEE | VILMA [...] | | | LABORATORY | | | TONGAN | | | SERVICES, | | | [...] | + + + + + | [facility] | [address] | [place] [address] | | | SERVICES, NATALEE | VILMA [...] | + + + + + | [facility] | [address] | [place] [address] | | | SERVICES, CORE | [address] | | | + + + + + MAGNESIUM, PLASMA (09/18/2017 5:40 AM PDT) + +-------+ + + + | Component | Value | Ref Range | Performed | Pathologist | | | | | At | Signature | + +-------+ + + + | MAGNESIUM,P | 2.3 | 1.6 - 2.6 mg/dL | [facility] | | | [facility] | | | [...] [facility] | [address] | [place] [address] | | | NATALEE WORTHINGTON | VILMA [...] | | | LABORATORY | | | TONGAN | | | SERVICES, | | | [...] | + + + + + | [facility] | [address] | [place] [address] | | | SERVICES, CORE | VILMA [...] Note | + + | Service Account, Edvivo In Interface - 09/17/2017 11:53 AM PDT [...] | + + + + + | [facility] | [address] | [place] [address] | | | SERVICES, CORE | VILMA [...] [facility] | [address] | [place] [address] | | | SERVICES, CORE | PARK [...] (H) | 70 - 99 mg/dL | [facility] | | | PLASMA | | | [...] | | | LABORATORY | | | TONGAN | | | SERVICES, | | | [...] the MDRD equation recommended by the | [facility] | | National Kidney Disease Education [...] | + + + + + | [facility] | [address] | [place] [address] | | | SERVICES, [facility] | [address] | | | + + + + + X-RAY PORTABLE CHEST PICC LINE CHECK (09/16/2017 1:11 PM PDT) + + | Specimen | + + | | + + + + + | Narrative | Performed At | + + + | EXAM: NH CHEST PICC LINE CHECK HISTORY: PICC placement [...] Note | + + | Service Account, Edvivo In Interface - 09/16/2017 1:34 PM PDT EXAM: NH CHEST | | PICC LINE CHECK HISTORY: [...] At | + + + | EXAM: NH CHEST PICC LINE CHECK HISTORY: Evaluate PICC [...] Note | + + | Service Account, Edvivo In Interface - 09/16/2017 11:41 AM PDT EXAM: NH CHEST | | PICC LINE CHECK HISTORY: [...] [facility] | [address] | [place] [address] | | | SERVICES, CORE | PARK [...] [facility] | [address] | [place] [address] | | | SERVICES, CORE | PARK [...] | | | LABORATORY | | | TONGAN | | | SERVICES, | | | [...] the MDRD equation recommended by the | [facility] | | National Kidney Disease Education Program. [...] | + + + + + | [facility] | [address] | [place] [address] | | | NATALEE WORTHINGTON | [address] | | | + + + + + X-RAY PORTABLE CHEST 1 VIEW (09/15/2017 3:28 PM PDT) + + | Specimen | + + | | + + + + + | Narrative | Performed At | + + + | EXAM: NH CHEST 1 VIEW HISTORY: COMPARISON: None. | [...] Interface - 09/15/2017 6:45 PM PDT EXAM: NH CHEST 1 | | VIEW HISTORY: COMPARISON: [...] At | + + + | EXAM: NH CHEST PICC LINE CHECK HISTORY: PICC COMPARISON: [...] Interface - 09/15/2017 6:43 PM PDT EXAM: NH CHEST | | PICC LINE CHECK HISTORY: [...] Note Indications:TPN Procedure | | | location: Unit:[facility] Room: #12 Providers: Attending name: | [...] | pause verifies correct patient, procedure, equipment, legal support assistant | | | and site/side marked as [...] | area Basilic vein. Catheter lot number: [id number] with a length of 55 | | [...] | + + + + + | [facility] | [address] | [place] [address] | | | SERVICES, CORE | [address] | | | + + + + + MAGNESIUM, PLASMA (09/15/2017 6:02 AM PDT) + +-------+ + + + | Component | Value | Ref Range | Performed | Pathologist | | | | | At | Signature | + +-------+ + + + | MAGNESIUM,P | 2.1 | 1.6 - 2.6 mg/dL | [facility] | | | LASMA | | | [...] [facility] | [address] | [place] [address] | | | ELIN, NATALEE | VILMA [...] | | | LABORATORY | | | TONGAN | | | SERVICES, | | | [...] | + + + + + | [facility] [employer] | [address] | [place] [address] | | | SERVICES, CORE | VILMA [...] | + + + + + | [facility] | [address] | [place] [address] | | | SERVICES, CORE | VILMA [...] [facility] | [address] | [place] [address] | | | SERVICES, CORE | PARK [...] | | | LABORATORY | | | TONGAN | | | SERVICES, | | | [...] the MDRD equation recommended by the | [facility] | | National Kidney Disease Education [...] | + + + + + | [facility] | [address] | [place] [address] | | | SERVICES, CORE | PARK [...] + + | [facility] | [address] | [place] [address] | | | SERVICES, CORE | PARK [...] [facility] | [address] | [place] [address] | | | SERVICES, CORE | PARK [...] | | | LABORATORY | | | TONGAN | | | SERVICES, | | | [...] the MDRD equation recommended by the | [facility] | | National Kidney Disease Education [...] | + + + + + | [facility] | [address] | [place] [address] | | | SERVICES, CORE | PARK [...] | + + + + + | [facility] | [address] | [place] [address] | | | NATALEE WORTHINGTON | PARK [...] | + + + + + | [facility] | [address] | [place] [address] | | | SERVICES, CORE | VILMA [...] | | | LABORATORY | | | TONGAN | | | SERVICES, | | | [...] + + + + + | [facility] | [address] | [place] [address] | | | SERVICES, CORE | VILMA [...] Note | + + | Service Account, Shutter Guardian Res In Interface - 09/12/2017 6:48 AM [...] | + + + + + | [facility] | [address] | [place] [address] | | | SERVICES, CORE | VILMA [...] [facility] | [address] | [place] [address] | | | SERVICES, CORE | PARK [...] | | | LABORATORY | | | TONGAN | | | SERVICES, | | | [...] the MDRD equation recommended by the | [facility] | | National Kidney Disease Education [...] | + + + + + | [facility] | [address] | [place] [address] | | | SERVICES, CORE | VILMA [...] | + + + + + | [facility] | [address] | [place] [address] | | | NATALEE WORTHINGTON | VILMA [...] Note | + + | Service Account, Edvivo In Interface - 09/10/2017 2:31 PM PDT [...] At | + + + | STUDY: NH CHEST 1 VIEW 09/10/17 07:02:01 HISTORY: Possible [...] Interface - 09/10/2017 9:25 AM PDT STUDY: NH CHEST 1 | | VIEW 09/10/17 07:02:01 [...] [facility] | [address] | [place] [address] | | | SERVICES, CORE | PARK [...] | + + + + + | [facility] | [address] | [place] [address] | | | SERVICES, CORE | VILMA [...] [facility] | [address] | [place] [address] | | | NATALEE WORTHINGTON | VILMA [...] | + + + + + | [facility] | [address] | [place] [address] | | | SERVICES, CORE | PARK [...] | | | LABORATORY | | | TONGAN | | | SERVICES, | | | [...] | + + + + + | [facility] | [address] | [place] [address] | | | SERVICES, CORE | PARK [...] | + + + + + | [facility] | [address] | [place], [place] | | | CARDIOLOGY | [address] | [address] | | + + + + + X-RAY ABD LTD FEEDING TUBE EVAL PORTABLE (09/09/2017 10:15 PM PDT) + + | Specimen | + + | | + + + + + | Narrative | Performed At | + + + | INDICATION: feeding tube placement TECHNIQUE: Supine portable | [facility] | | view of the upper [...] presented. Final signature: Edelmira Parsons | | Prabhakar CABRERA 09/10/2017 11:11 AM Created by: Edelmira Parsons MD | | + + + + + | Procedure Note | + + | Service Account, Shutter Guardian Res In Interface - 09/10/2017 11:11 AM [...] | | + +---------+ + + | [facility] | | | | | [...] - [facility] | [address] | [place], [place] | | | [facility] | [address] | [address] | | | TESTS | | | [...] [facility] | [address] | [place] [address] | | | SERVICES, CORE | PARK [...] | + + + + + | [facility] | [address] | [place] [address] | | | SERVICES, CORE | VILMA [...] | | | LABORATORY | | | TONGAN | | | SERVICES, | | | [...] [facility] | [address] | [place] [address] | | | SERVICES, CORE | PARK [...] | + + + + + | [facility] | [address] | [place] [address] | | | SERVICES, CORE | VILMA [...] | | | LABORATORY | | | TONGAN | | | SERVICES, | | | [...] [facility] | [address] | [place] [address] | | | SERVICES, CORE | PARK [...] | + + + + + | [facility] [employer] | [address] | [place] [address] | | | SERVICES, CORE | VILMA [...] | + + + + + | [facility] | [address] | [place] [address] | | | SERVICES, [facility] | [address] | | | + + + + + X-RAY EL PEÑA FEEDING TUBE EVAL (09/08/2017 4:38 AM PDT) + + | Specimen | + + | | + + + + + | Narrative | Performed At | + + + | EXAM: ABD MARIANA FEEDING TUBE EVAL 09/08/17 04:04:50 COMPARISON: | [facility] | | 09/06/17 FINDINGS: Feeding tube [...] [facility] | [address] | [place], [place] | | | CARDIOLOGY | [address] | [address] | | + + + + + X-RAY PORTABLE CHEST 1 VIEW (09/07/2017 6:12 AM PDT) + + | Specimen | + + | | + + + + + | Narrative | Performed At | + + + | EXAM: NH CHEST 1 VIEW HISTORY: Post extubation COMPARISON: [...] Interface - 09/07/2017 10:46 AM PDT EXAM: NH CHEST 1 | | VIEWHISTORY: Post extubationCOMPARISON: [...] | + + + + + | [facility] | [address] | [place] [address] | | | SERVICES, CORE | VILMA [...] | | | LABORATORY | | | TONGAN | | | SERVICES, | | | [...] | + + + + + | [facility] | [address] | [place] [address] | | | NATALEE WORTHINGTON | VILMA [...] | + + + + + | [facility] | [address] | [place] [address] | | | SERVICES, NATALEE | PARK [...] Interface - 09/07/2017 10:46 AM PDT EXAM: EL LTD | | FEEDING TUBE EVAL 09/06/17 [...] | + + + + + | [facility] | [address] | [place], [place] | | | CARDIOLOGY | [address] | [address] | | + + + + + [...] | | | attempt. Midline lot number [id number]; there was positive blood | | | [...] | | | LABORATORY | | | TONGAN | | | SERVICES, | | | [...] + + | [facility] | [address] | [place] [address] | | | SERVICES, CORE | PARK [...] to administering the 01:30 dose on | [facility] | | 09/06, thanks! | LABORATORY | | | SERVICES, CORE | + + + + + + + + | Performing | Address | City/State/Zipcode | Phone Number | | Organization | | | | + + + + + | [employer] | [address] | [place] [address] | | | SERVICES, CORE | [address] | | | + + + + + X-RAY PORTABLE CHEST 1 VIEW (09/05/2017 5:33 AM PDT) + + | Specimen | + + | | + + + + + | Narrative | Performed At | + + + | EXAM: NH CHEST 1 VIEW HISTORY: Evaluation after chest [...] Note | + + | Service Account, [employer] Res In Interface - 09/05/2017 10:16 AM PDT EXAM: NH CHEST 1 | | VIEW HISTORY: Evaluation [...] [facility] | [address] | [place] [address] | | | SERVICES, CORE | VILMA [...] | + + + + + | [facility] | [address] | [place] [address] | | | NATALEE WORTHINGTON | PARK [...] | | | LABORATORY | | | TONGAN | | | SERVICES, | | | [...] | + + + + + | [facility] | [address] | [place] [address] | | | SERVICES, CORE | VILMA [...] | | | LABORATORY | | | TONGAN | | | SERVICES, | | | [...] | + + + + + | [facility] | [address] | [place] [address] | | | ELIN, NATALEE | VILMA [...] tomorrow morning. CB Henson Pager / ID: [phone] | | + + + CULTURE, SPUTUM [...] + | [facility] | [address] | [place] [address] | | | [place] | | | [...] [facility] | [address] | [place] [address] | | | SERVICES, CORE | VILMA [...] | [facility] | | | GRAVITY | Sidell performed by | | LABORATORY | | [...] [facility] | [address] | [place] [address] | | | SERVICES, CORE | PARK [...] | + + + + + | [facility] | [address] | [place] [address] | | | SERVICES, CORE | VILMA [...] [facility] | [address] | [place] [address] | | | SERVICES, CORE | VILMA [...] | + + + + + | [facility]PT OF | [address] | [place], [place] | | | CARDIOLOGY | [address] | [address] | | + + + + + X-RAY PORTABLE CHEST 1 VIEW (09/04/2017 7:04 AM PDT) + + | Specimen | + + | | + + + + + | Narrative | Performed At | + + + | EXAM: NH CHEST 1 VIEW HISTORY: Hypoxia. Intubated. | [...] Interface - 09/04/2017 9:49 AM PDT EXAM: NH CHEST 1 | | VIEW HISTORY: Hypoxia. [...] | + + + + + | [facility] | [address] | [place] [address] | | | SERVICES, CORE | VILMA [...] [facility] | [address] | [place] [address] | | | SERVICES, CORE | PARK [...] | | | LABORATORY | | | TONGAN | | | SERVICES, | | | [...] the MDRD equation recommended by the | [facility] | | National Kidney Disease Education [...] | + + + + + | [facility] | [address] | [place] [address] | | | SERVICES, CORE | PARK [...] [facility] | [address] | [place] [address] | | | SERVICES, NATALEE | VILMA [...] [facility] | [address] | [place], [place] | | | [facility] | [address] | [address] | | | TESTS | | | [...] [facility] | [address] | [place], [place] | | | GLORIA GENAO OF [facility] | [address] | [address] | | | TESTS | | | [...] [facility] | [address] | [place], [place] | | | GLORIA GENAO OF CARE | [address] | [address] | | | TESTS | | | [...] [facility] | [address] | [place], [place] | | | [facility] | [facility] | [address] | | | TESTS | | | [...] | | + +---------+ + + | [facility] | | | | | [...] detected | [facility] - | | | [place] | + + + + + + + + | Performing | Address | City/State/Zipcode | Phone Number | | Organization | | | | + + + + + | [facility] | [address] | [place] [address] | | | [place] | | | [...] | + + + + + | [facility] | [address] | [place] [address] | | | SERVICES, CORE | VILMA [...] Note | + + | Service Account, Edvivo In Interface - 09/03/2017 9:54 AM PDT [...] detected | [facility] - | | | [place] | + + + + + + + + | Performing | Address | City/State/Zipcode | Phone Number | | Organization | | | | + + + + + | [facility] | [address] | [place] [address] | | | [place] | | | | + + + [...] [facility] | [address] | [place] [address] | | | SERVICES, CORE | PARK [...] | + + + + + | [facility] | [address] | [place] [address] | | | SERVICES, CORE | VILMA [...] | | | LABORATORY | | | [facility] | | | SERVICES, | | | [...] [facility] | [address] | [place] [address] | | | SERVICES, CORE | PARK [...] | + + + + + | [facility] | [address] | [place] [address] | | | SERVICES, [facility] | [address] | | | + + + + + OPERATION RECORD (09/02/2017 6:53 PM PDT) + + | Procedure Note | + + | Fidelina Shields MD - 09/02/2017 6:53 PM PDT Date of Service: 09/02/2017 | | Attending Surgeon: Fidelina Shields MD Kiln Remover(s): | | Ajay Garcia MD, resident. Preoperative [...] 09/02/2017 18:15:29DT: 09/02/2017 18:53:52Job #: | | [id number] to federal Medicare and Medicaid regulations I was present for | | the entire procedure.Fidelina Shields MDAssistant ProfessorDepartment of SurgeryOffice: | | [phone]: [id number] has been electronically signed by Fidelina Shields MD, | | 09/03/2017 at 9:11 AM. | | | | | |Fidelina Shields MD | |Business Communications Instructor | |Department of Surgery | |Office: [phone] | |Pager: [phone] | | | |This has been electronically [...] + + | [facility] | [address] | [place] [address] | | | SERVICES, CORE | PARK [...] | + + + + + | [facility] | [address] | [place] [address] | | | SERVICES, CORE | VILMA [...] + | [facility] | [address] | [place] [address] | | | [place] | | | [...] [facility] | [address] | [place] [address] | | | ELIN, NATALEE | VILMA [...] | | | LABORATORY | | | [facility] | | | SERVICES, | | | [...] | + + + + + | [facility] | [address] | [place] [address] | | | SERVICES, CORE | VILMA [...] Note | + + | Service Account, Shutter Guardian Res In Interface - 09/02/2017 4:25 PM [...] Bedrest Initial surgical | | | [facility], Surgery [id number] Pursuant | | | to federal Medicare and Medicaid regulations I was present for the | | | entire procedure. Fidelina Shields MD Business Communications Instructor | | | Department of Surgery Office: [phone] Pager: [phone] This has | | | been electronically [...] [facility] | [address] | [place] [address] | | | SERVICES, CORE | VILMA [...] (H) | 0.90 - 1.20 INR | [facility] | | | | | | [...] | + + + + + | [facility] | [address] | [place] [address] | | | SERVICES, CORE | [address] | | | + + + + + OPERATION RECORD (09/02/2017 6:51 AM PDT) + ---+ | Procedure Note | + ---+ | Fidelina Shields MD - 09/02/2017 6:51 AM PDT Date of Service: 09/01/2017 | | Attending Surgeon: Fidelina Shields MD Kiln Remover(s): Haim Peralta MD. | | Ajay Garcia [...] 09/02/2017 06:17:53DT: 09/02/2017 | | 06:51:37Job #: [id number] to federal Medicare and Medicaid regulations I | | was present for the entire procedure.Fidelina Tenorio ProfessorDepartment of | | SurgeryOffice: [phone]: [id number] has been electronically signed by Fidelina Snyder | | MD Cornelius, 09/02/2017 at 10:40 AM. | | | | | |Pursuant to federal Medicare and Medicaid regulations I was present for the entire elianur e. | | | | | | | |Fidelina Shields MD | |Business Communications Instructor | |Department of Surgery | |Office: [phone] | |Pager: [phone] | | | |This has been electronically [...] [facility] | [address] | [place] [address] | | | SERVICES, CORE | PARK [...] | + + + + + | [facility] | [address] | [place] [address] | | | SERVICES, CORE | VILMA [...] + + + + | PRODUCT | [id number] | | [facility] | | | UNIT [...] + + + + | EXPIRATION | [id number] | | [facility] | | | DATE [...] + + + + | BLOOD | [id number] | | [facility] | | | PRODUCT [...] | + + + + + | [facility] | [address] | [place] [address] | | | SERVICES, | [address] [...] | + + + + + | [facility] | [address] | [place] [address] | | | SERVICES, CORE | VILMA [...] | | | LABORATORY | | | [facility] | | | SERVICES, | | | [...] | + + + + + | [facility] | [address] | [place] [address] | | | SERVICES, CORE | PARK [...] [facility] | [address] | [place] [address] | | | SERVICESNATALEE | [address] [...] | | | | INFORMATION: | | [employer] | | | | [employer] | [...] (http://www.cdc.gov/mmwr | | | | | | /[email or web address] | | | | | | [email or web address]), [...] [facility] - | | | | by [facility], | | AIRPORT - | | | | | | [place] | | | | [address] | | | | | | [place], [place] | | | | | | [address] | | | | | | | | | | | | [email or web address] | | | | | | [...] + | [facility] - | [address] | [place] [address] | | | [facility] | | | | + + + [...] [facility] | [address] | [place] [address] | | | SERVICES, CORE | PARK [...] | + + + + + | [facility] | [address] | [place] [address] | | | SERVICES, CORE | VILMA [...] At | + + + | EXAM: NH CHEST 1 VIEW HISTORY: Hypoxemia COMPARISON: 09/01/17 [...] Interface - 09/02/2017 10:34 AM PDT EXAM: NH CHEST 1 | | VIEW HISTORY: HypoxemiaCOMPARISON: [...] [facility] | [address] | [place] [address] | | | SERVICES, CORE | PARK [...] [facility] | [address] | [place] [address] | | | SERVICES, CORE | PARK [...] + + + + | PRODUCT | [id number] | | [facility] | | | UNIT [...] + + + + | EXPIRATION | [id number] | | [facility] | | | DATE [...] + + + + | BLOOD | [id number] | | [facility] | | | PRODUCT [...] [facility] | [address] | [place] [address] | | | SERVICES, | [address] [...] [facility] | [address] | [place] [address] | | | SERVICES, CORE | VILMA [...] | + + + + + | [facility] | [address] | [place] [address] | | | SERVICES, CORE | VILMA [...] | + + + + + | [facility] | [address] | [place] [address] | | | SERVICES, CORE | VILMA [...] | | | LABORATORY | | | [facility] | | | SERVICES, | | | [...] | + + + + + | [facility] | [address] | [place] [address] | | | SERVICES, CORE | PARK [...] | + + + + + | [facility] | [address] | [place] [address] | | | SERVICES, CORE | VILMA [...] | + + + + + | [facility] | [address] | [place] [address] | | | SERVICES, CORE | PARK [...] micropuncture access set was exchanged for a [employer] wire. Under | | | fluoroscopic guidance, a 5 Fr flush catheter was used to evaluate the | | | distal abdominal aorta and pelvic vasculature. A wire and catheter | | | were then used to select the left common and internal iliac arteries | | | from the right CAT CRACKER OPERATOR approach. DSA was performed from the [...] micropuncture access set was exchanged for a Sw[employer] wire. Under fluoroscopic guidance, | | a 5 Fr flush catheter was used to evaluate the distal abdominal aorta and pelvic | | vasculature. A wire and catheter were then used to select the left common and internal | | iliac arteries from the right CAT CRACKER OPERATOR approach. DSA was performed from the [...] micropuncture access set was exchanged for a SwipeClock wire. Under fluoroscopic guidance, a 5 Fr flush catheter was used | |to evaluate the distal abdominal aorta and pelvic vasculature. A wire and catheter were th en used to select the left common and internal iliac arteries from the right CAT CRACKER OPERATOR approach. DSA was performed from the [...] | | | POC | | | MARQULIN | | | [...] [facility] | [address] | [place], [place] | | | [employer] [employer] | [address] | [address] | | | TESTS | | | | + + + + + EXPLORATORY LAPAROTOMY (09/01/2017 12:31 PM PDT) + + + | Narrative | Performed At | + + + | Fidelina Shields MD 09/01/2017 12:42 PM BRIEF OPERATIVE NOTE: | | | Date: 09/01/2017 Author: Fidelina Shields MD | | | Attending Physician: Fidelina Shields MD Kiln Remover(s): Haim Peralta | | | , Vicente Garcia MD, [facility] Prior to the | | | [...] case. | | | Fidelina Shields MD Business Communications Instructor Division of Trauma, | | | Critical Care and Acute Care Surgery Office: [phone] Pager: | | | [phone] | | + + + ABG-FULL ABL, [...] [facility] | [address] | [place], [place] | | | [employer] [employer] | [address] | [address] | | | TESTS | | | [...] | + + + + + | [facility] | [address] | [place] [address] | | | SERVICES, CORE | [address] | | | + + + + + ABDwight-KENRICK WALDRON POC (09/01/2017 11:04 AM PDT) + + + + + + | Component | Value | Ref Range | Performed | Pathologist | | | | | At | Signature | + + + + + + | PH | 7.35 (L) | 7.37 - 7.44 | [facility] - | | | ARTERIAL, | | | MARK[facility]ISAM | | | [...] + + + | [facility] | [address] | [place], [place] | | | [employer] | [address] | [address] | | | TESTS | | | [...] + + + + | PRODUCT | [id number] | | [facility] | | | UNIT [...] + + + + | EXPIRATION | [id number] | | [facility] | | | DATE [...] + + + + | BLOOD | [id number] | | [facility] | | | PRODUCT [...] [facility] | [address] | [place] [address] | | | SERVICES, | [address] [...] + + + + | PRODUCT | [id number] | | [facility] | | | UNIT [...] + + + + | EXPIRATION | [id number] | | [facility] | | | DATE [...] + + + + | BLOOD | [id number] | | [facility] | | | PRODUCT [...] [facility] | [address] | [place] [address] | | | SERVICES, | [address] [...] + + + + | PRODUCT | [id number] | | [facility] | | | UNIT [...] + + + + | EXPIRATION | [id number] | | [facility] | | | DATE [...] + + + + | BLOOD | [id number] | | [facility] | | | PRODUCT [...] [facility] | [address] | [place] [address] | | | SERVICES, | [address] [...] + + + + | PRODUCT | [id number] | | [facility] | | | UNIT [...] + + + + | EXPIRATION | [id number] | | [facility] | | | DATE [...] + + + + | BLOOD | [id number] | | [facility] | | | PRODUCT [...] [facility] | [address] | [place] [address] | | | SERVICES, | [address] [...] + + + + | PRODUCT | [id number] | | [facility] | | | UNIT [...] + + + + | EXPIRATION | [id number] | | [facility] | | | DATE [...] + + + + | BLOOD | [id number] | | [facility] | | | PRODUCT [...] LABORATORY | [address] | [place] [address] | | | SERVICES, | [address] [...] + + + + | PRODUCT | [id number] | | [facility] | | | UNIT [...] + + + + | EXPIRATION | [id number] | | [facility] | | | DATE [...] + + + + | BLOOD | [id number] | | [facility] | | | PRODUCT [...] | + + + + + | [facility] | [address] | [place] [address] | | | SERVICES, | [address] [...] + + + + | PRODUCT | [id number] | | [facility] | | | UNIT [...] + + + + | EXPIRATION | [id number] | | [facility] | | | DATE [...] + + + + | BLOOD | [id number] | | [facility] | | | PRODUCT [...] | + + + + + | [facility] [employer] | [address] | [place] [address] | | | SERVICES, | [address] [...] + + + + | PRODUCT | [id number] | | [facility] | | | UNIT [...] + + + + | EXPIRATION | [id number] | | [facility] | | | DATE [...] + + + + | BLOOD | [id number] | | [facility] | | | PRODUCT [...] | + + + + + | [facility] | [address] | [place] [address] | | | SERVICES, | [address] [...] + + + + | PRODUCT | [id number] | | [facility] | | | UNIT [...] + + + + | EXPIRATION | [id number] | | [facility] | | | DATE [...] + + + + | BLOOD | [id number] | | [facility] | | | PRODUCT [...] | + + + + + | [facility] | [address] | [place] [address] | | | SERVICES, | [address] [...] + + + + | PRODUCT | [id number] | | [facility] | | | UNIT [...] + + + + | EXPIRATION | [id number] | | [facility] | | | DATE [...] + + + + | BLOOD | [id number] | | [facility] | | | PRODUCT [...] [facility] | [address] | [place] [address] | | | SERVICES, | [address] [...] + + + + | PRODUCT | [id number] | | [facility] | | | UNIT [...] + + + + | EXPIRATION | [id number] | | [facility] | | | DATE [...] + + + + | BLOOD | [id number] | | [facility] | | | PRODUCT [...] [facility] | [address] | [place] [address] | | | SERVICES, | [address] [...] + + + + | PRODUCT | [id number] | | [facility] | | | UNIT [...] + + + + | EXPIRATION | [id number] | | [facility] | | | DATE [...] + + + + | BLOOD | [id number] | | [facility] | | | PRODUCT [...] [facility] | [address] | [place] [address] | | | SERVICES, | [address] [...] + + + + | PRODUCT | [id number] | | [facility] | | | UNIT [...] + + + + | EXPIRATION | [id number] | | [facility] | | | DATE [...] + + + + | BLOOD | [id number] | | [facility] | | | PRODUCT [...] [facility] | [address] | [place] [address] | | | SERVICES, | [address] [...] + + + + | PRODUCT | [id number] | | [facility] | | | UNIT [...] + + + + | EXPIRATION | [id number] | | [facility] | | | DATE [...] + + + + | BLOOD | [id number] | | [facility] | | | PRODUCT [...] [facility] | [address] | [place] [address] | | | SERVICES, | [address] [...] + + + + | PRODUCT | [id number] | | [facility] | | | UNIT [...] + + + + | EXPIRATION | [id number] | | [facility] | | | DATE [...] + + + + | BLOOD | [id number] | | [facility] | | | PRODUCT [...] [facility] | [address] | [place] [address] | | | SERVICES, | [address] [...] + + + + | PRODUCT | [id number] | | [facility] | | | UNIT [...] + + + + | EXPIRATION | [id number] | | [facility] | | | DATE [...] + + + + | BLOOD | [id number] | | [facility] | | | PRODUCT [...] [facility] | [address] | [place] [address] | | | SERVICES, | [address] [...] + + + + | PRODUCT | [id number] | | [facility] | | | UNIT [...] + + + + | EXPIRATION | [id number] | | [facility] | | | DATE [...] + + + + | BLOOD | [id number] | | [facility] | | | PRODUCT [...] [facility] | [address] | [place] [address] | | | SERVICES, | [address] [...] + + + + | PRODUCT | [id number] | | [facility] | | | UNIT [...] + + + + | EXPIRATION | [id number] | | [facility] | | | DATE [...] + + + + | BLOOD | [id number] | | [facility] | | | PRODUCT [...] | + + + + + | [facility] | [address] | [place] [address] | | | SERVICES, | [address] [...] + + + + | PRODUCT | [id number] | | [facility] | | | UNIT [...] + + + + | EXPIRATION | [id number] | | [facility] | | | DATE [...] + + + + | BLOOD | [id number] | | [facility] | | | PRODUCT [...] | + + + + + | [facility] | [address] | [place] [address] | | | SERVICES, | [address] [...] + + + + | PRODUCT | [id number] | | [facility] | | | UNIT [...] + + + + | EXPIRATION | [id number] | | [facility] | | | DATE [...] + + + + | BLOOD | [id number] | | [facility] | | | PRODUCT [...] | + + + + + | [facility] | [address] | [place] [address] | | | SERVICES, | [address] [...] + + + + | PRODUCT | [id number] | | [facility] | | | UNIT [...] + + + + | EXPIRATION | [id number] | | [facility] | | | DATE [...] + + + + | BLOOD | [id number] | | [facility] | | | PRODUCT [...] | + + + + + | [facility] | [address] | [place] [address] | | | SERVICES, | [address] [...] + + + + | PRODUCT | [id number] | | [facility] | | | UNIT [...] + + + + | EXPIRATION | [id number] | | [facility] | | | DATE [...] + + + + | BLOOD | [id number] | | [facility] | | | PRODUCT [...] [facility] | [address] | [place] [address] | | | SERVICES, | [address] [...] + + + + | PRODUCT | [id number] | | [facility] | | | UNIT [...] + + + + | EXPIRATION | [id number] | | [facility] | | | DATE [...] + + + + | BLOOD | [id number] | | [facility] | | | PRODUCT [...] [facility] | [address] | [place] [address] | | | SERVICES, | [address] [...] + + + + | PRODUCT | [id number] | | [facility] | | | UNIT [...] + + + + | EXPIRATION | [id number] | | [facility] | | | DATE [...] + + + + | BLOOD | [id number] | | [facility] | | | PRODUCT [...] [facility] | [address] | [place] [address] | | | SERVICES, | [address] [...] + + + + | PRODUCT | [id number] | | [facility] | | | UNIT [...] + + + + | EXPIRATION | [id number] | | [facility] | | | DATE [...] + + + + | BLOOD | [id number] | | [facility] | | | PRODUCT [...] [facility] | [address] | [place] [address] | | | SERVICES, | [address] [...] + + + + | PRODUCT | [id number] | | [facility] | | | UNIT [...] + + + + | EXPIRATION | [id number] | | [facility] | | | DATE [...] + + + + | BLOOD | [id number] | | [facility] | | | PRODUCT [...] [facility] | [address] | [place] [address] | | | SERVICES, | [address] [...] [facility] | [address] | [place] [address] | | | SERVICES, CORE | PARK [...] | | | LABORATORY | | | [facility] | | | SERVICES, | | | [...] | + + + + + | [facility] | [address] | [place] [address] | | | SERVICES, NATALEE | VILMA [...] | + + + + + | [facility] | [address] | [place] [address] | | | SERVICES, CORE | [address] | | | + + + + + BG-HBPOC RT (09/01/2017 9:19 AM PDT) + + [...] [facility] | [address] | [place], [place] | | | [facility] | [address] | [address] | | | TESTS | | | | + + + + + X-RAY PORTABLE CHEST 1 VIEW (09/01/2017 9:18 AM PDT) + + | Specimen | + + | | + + + + + | Narrative | Performed At | + + + | EXAM: NH CHEST 1 VIEW HISTORY: Intubated COMPARISON: 08/31/17 [...] Interface - 09/02/2017 1:23 PM PDT EXAM: NH CHEST 1 | | VIEW HISTORY: IntubatedCOMPARISON: [...] | | + +---------+ + + | [facility] | | | | | [...] + + + + | PRODUCT | [id number] | | [facility] | | | UNIT [...] + + + + | EXPIRATION | [id number] | | [facility] | | | DATE [...] + + + + | BLOOD | [id number] | | [facility] | | | PRODUCT [...] [facility] | [address] | [place] [address] | | | SERVICES, | [address] [...] + + + + | PRODUCT | [id number] | | [facility] | | | UNIT [...] + + + + | EXPIRATION | [id number] | | [facility] | | | DATE [...] + + + + | BLOOD | [id number] | | [facility] | | | PRODUCT [...] LABORATORY | [address] | [place] [address] | | | SERVICES, | [address] [...] + + + + | PRODUCT | [id number] | | [facility] | | | UNIT [...] + + + + | EXPIRATION | [id number] | | [facility] | | | DATE [...] + + + + | BLOOD | [id number] | | [facility] | | | PRODUCT [...] [facility] | [address] | [place] [address] | | | SERVICES, | [address] [...] + + + + | PRODUCT | [id number] | | [facility] | | | UNIT [...] + + + + | EXPIRATION | [id number] | | [facility] | | | DATE [...] + + + + | BLOOD | [id number] | | [facility] | | | PRODUCT [...] [facility] | [address] | [place] [address] | | | SERVICES, | [address] [...] + + + + | PRODUCT | [id number] | | [facility] | | | UNIT [...] + + + + | EXPIRATION | [id number] | | [facility] | | | DATE [...] + + + + | BLOOD | [id number] | | [facility] | | | PRODUCT [...] | + + + + + | [facility] | [address] | [place] [address] | | | SERVICES, | [address] [...] + + + + | PRODUCT | [id number] | | [facility] | | | UNIT [...] + + + + | EXPIRATION | [id number] | | [facility] | | | DATE [...] + + + + | BLOOD | [id number] | | [facility] | | | PRODUCT [...] [facility] | [address] | [place] [address] | | | SERVICES, | [address] [...] + + + + | PRODUCT | [id number] | | [facility] | | | UNIT [...] + + + + | EXPIRATION | [id number] | | [facility] | | | DATE [...] + + + + | BLOOD | [id number] | | [facility] | | | PRODUCT [...] [facility] | [address] | [place] [address] | | | SERVICES, | [address] [...] + + + + | PRODUCT | [id number] | | [facility] | | | UNIT [...] + + + + | EXPIRATION | [id number] | | [facility] | | | DATE [...] + + + + | BLOOD | [id number] | | [facility] | | | PRODUCT [...] [facility] | [address] | [place] [address] | | | SERVICES, | [address] [...] + + + + | PRODUCT | [id number] | | [facility] | | | UNIT [...] + + + + | EXPIRATION | [id number] | | [facility] | | | DATE [...] + + + + | BLOOD | [id number] | | [facility] | | | PRODUCT [...] [facility] | [address] | [place] [address] | | | SERVICES, | [address] [...] | + + + + + | [facility] | [address] | [place] [address] | | | NATALEE WORTH[place] | V[address] [...] | + + + + + | [facility] | [address] | [place] [address] | | | SERVICES, CORE | [address] [...] Discussed with | | | trauma ICU hospitality intern by Dr. Yang at 4:38 AM. [...] interspinous ligament is injured.Discussed with trauma ICU hospitality intern | | by Dr. Yang at 4:38 AM.I have personally reviewed the images and, if necessary, | | edited the report. I agree with the report as now presented. | |3. Extensive soft tissue edema extending into the cervical and upper thoracic interspinous space, suggestive of interspinous ligament is injured. | | | |Discussed with trauma ICU hospitality intern by Dr. Yang at 4:38 AM. [...] | | | LABORATORY | | | [facility] | | | SERVICES, | | | [...] | + + + + + | [facility] [employer] | [address] | [place] [address] | | | SERVICES, CORE | VILMA [...] LABORATORY | [address] | [place] [address] | | | SERVICES, CORE | PARK [...] [facility] | [address] | [place] [address] | | | SERVICES, CORE | PARK [...] | + + + + + | [facility] | [address] | [place] [address] | | | SERVICES, CORE | [address] [...] pleural spaced was performed. A 32 size [place] chest tube was | | | placed [...] | ventricles. Discussed with the trauma ICU hospitality intern at 12:12 AM by | | [...] ventricles.Discussed with | | the trauma ICU hospitality intern at 12:[address] Yang.I [...] | | |Discussed with the trauma ICU hospitality intern at 12:[address] Yang. [...] [facility] | [address] | [place], [place] | | | [place] [employer] | [address] | [address] | | | TESTS | | | [...] | + + + + + | [facility] | [address] | [place] [address] | | | SERVICES, CORE | PARK [...] [facility] | [address] | [place] [address] | | | NATALEE [place]TH[place] | [address] [...] Note | + + | Service Account, Shutter Guardian Res In Interface - 09/01/2017 1:40 PM [...] + + | Performing | Address | City/State[facility] | Phone Number | [...] | | + +---------+ + + | [facility] | | | | | [...] | + + + + + | [facility] | [address] | [place] [address] | | | SERVICES, [facility] | [address] | | | + + + + + X-RAY PORTABLE CHEST 1 VIEW (08/31/2017 7:07 PM PDT) + + | Specimen | + + | | + + + + + | Narrative | Performed At | + + + | STUDY: [place] CHEST 1 VIEW HISTORY: Trauma COMPARISON: CT CAP | [facility] | | 08/31/2017 FINDINGS: Endotracheal tube [...] Interface - 09/01/2017 1:44 PM PDT STUDY: [place] CHEST 1 | | VIEWHISTORY: TraumaCOMPARISON: CT [...] | + + + + + | [facility] | [address] | [place] [address] | | | SERVICES, CORE | [address] [...] Note | + + | Service Account, Shutter Guardian Res In Interface - 08/31/2017 8:22 PM [...] + + | Performing | Address | City/State/[facility] | Phone Number | [...] Note | + + | Service Account, Shutter Guardian Res In Interface - 09/01/2017 10:12 AM [...] rib, nondisplaced-Left | | 1st rib fracture, airzuxubeiyo-Eok-mhvwgrskm left lateral 8th rib fracture-T12 fracture | [...] + + | Performing | Address | City/[facility] | Phone Number | | Organization | [...] [facility] | [address] | [place] [address] | | | SERVICES, | [address] [...] [facility] | [address] | [place] [address] | | | SERVICES, | [address] [...] [facility] | [address] | [place] [address] | | | SERVICES, | [address] [...] | | | | | | [facility] | | [...] [facility] | [address] | [place], [place] | | | [facility] | [address] | [address] | | | TESTS | | | | + + + + + THROMBELASTOGRAPH, POC (08/31/2017 5:35 PM PDT) + + + + + + | Component | Value | Ref Range | Performed | Pathologist | | | | | At | Signature | + + + + + + | R - | 4.4 (A) | 5 - 10 Minutes | [facility] - | | | CITRATED | | [...] MARKHRISAM | | | | | | [place], [...] + + + | [facility] | [address] | [place], [place] | | | [place] [facility] | [address] | [address] | | | TESTS | | | [...] [facility] | [address] | [place], [place] | | | [employer] [employer] | [facility] | [address] | | | TESTS | | | [...] - [facility] | [address] | [place], [place] | | | GLORIA GENAO OF [facility] | [facility] | [address] | | | TESTS | | | [...] + + + + | PRODUCT | [id number] | | [facility] | | | UNIT [...] + + + + | EXPIRATION | [id number] | | [facility] | | | DATE [...] + + + + | BLOOD | [id number] | | [facility] | | | PRODUCT [...] [facility] | [address] | [place] [address] | | | SERVICES, | [address] [...] + + + + | PRODUCT | [id number] | | [facility] | | | UNIT [...] + + + + | EXPIRATION | [id number] | | [facility] | | | DATE [...] + + + + | BLOOD | [id number] | | [facility] | | | PRODUCT [...] LABORATORY | [address] | [place] [address] | | | SERVICES, | [address] [...] + + + + | PRODUCT | [id number] | | [facility] | | | UNIT [...] + + + + | EXPIRATION | [id number] | | [facility] | | | DATE [...] + + + + | BLOOD | [id number] | | [facility] | | | PRODUCT [...] | + + + + + | [facility] | [address] | [place] [address] | | | SERVICES, | [address] [...] + + + + | PRODUCT | [id number] | | [facility] | | | UNIT [...] + + + + | EXPIRATION | [id number] | | [facility] | | | DATE [...] + + + + | BLOOD | [id number] | | [facility] | | | PRODUCT [...] | + + + + + | [facility] | [address] | [place] [address] | | | SERVICES, | [address] [...] + + + + | PRODUCT | [id number] | | [facility] | | | UNIT [...] + + + + | EXPIRATION | [id number] | | [facility] | | | DATE [...] + + + + | BLOOD | [id number] | | [facility] | | | PRODUCT [...] | + + + + + | [facility] | [address] | [place] [address] | | | SERVICES, | [address] [...] + + + + | PRODUCT | [id number] | | [facility] | | | UNIT [...] + + + + | EXPIRATION | [id number] | | [facility] | | | DATE [...] + + + + | BLOOD | [id number] | | [facility] | | | PRODUCT [...] | + + + + + | [employer] | [address] | [place] [address] | | | SERVICES, | [...] + + + + | PRODUCT | [id number] | | [facility] | | | UNIT [...] + + + + | EXPIRATION | [id number] | | [facility] | | | DATE [...] + + + + | BLOOD | [id number] | | [facility] | | | PRODUCT [...] [facility] | [address] | [place] [address] | | | SERVICES, | [address] [...] + + + + | PRODUCT | [id number] | | [facility] | | | UNIT [...] + + + + | EXPIRATION | [id number] | | [facility] | | | DATE [...] + + + + | BLOOD | [id number] | | [facility] | | | PRODUCT [...] | + + + + + | [facility] | [address] | [place] [address] | | | SERVICES, | [address] [...] | + + + + + | [facility] | [address] | [place] [address] | | | SERVICES, CORE | [address] [...] | | | LABORATORY | | | [place] | | | SERVICES, | | | [...] [facility] | [address] | [place] [address] | | | SERVICES, CORE | [address] [...] | + + + + + | [facility] | [address] | [place] [address] | | | NATALEE WORTHINGTON | [address] [...] [facility] | [address] | [place] [address] | | | SERVICES, CORE | PARK [...] | + + + + + | [facility] | [address] [facility] | [place] [address] | | | SERVICES, CORE | [address] [...] | + + + + + | [facility] | [address] | [place] [address] | | | SERVICES, CORE | [address] [...] mg, intramuscular, | | | NEEDED, Starting Sat09/26/17 at | | | 0029, Until Sat12/06/17 [...] | | | 10/29/17 at 0742, Until Sat | | | | | | | 12/06/17 at 2051, nausea/vomiting, | | | | | | [...]
--- OUTSIDE RECORDS SUMMARY | ~2019-04-04 | XMS | Encounter Summary ---
Demographics + + + | Address | [address] | | | [place] [address] | + + + | Home Phone [...] | Author | [facility] [employer] [facility] | + + + | Organization | [facility] [employer] [facility] [...] Team Providers + +------+ + | Care Firearms Assembly Supervisor Name | Role | Phone | [...] 10/24/ | Anesthesia | 6A Intra Op [facility] | Moncho Arthur MD | | | 2018 | Event | [facility] | [address] | | | | | Admitting Desk | [place], | | | | | Located on the | [place] [address] | | | | | floor [address] [facility] | [phone] | | | | | [address] | | | | | | [place], [place] | [place] | | | | | [address] | [address] | | | | | | [place] [facility] | | | | | | [place] [address] | | | | | | [phone] | | | | | | | [...] Starting Sho 10/24/17 at 1131, | | AM PDT [...]
--- OUTSIDE RECORDS SUMMARY | ~2019-04-04 | XMS | Encounter Summary ---
Demographics + + + | Address | [address] | | | [place] [address] | + + + | Home Phone [...] Author + + + | Author | [facility] [employer] [facility] | + + + | Organization | [facility] [employer] [facility] | + + + | Address | Unknown | + + + | Phone | Unavailable | + + + Support + + +---------+ + | Name | Relationship | Address | Phone | + + +---------+ + | Kaylie Baig | ECON | Unknown | | + + +---------+ + Care Team Providers + +------+ + | Care Plastic Dolls Mold Filler Name | Role | Phone | + [...] | 2018 | Pass | [facility] | | | | | | Admitting Desk | | | | | | Located on the 9th | | | | | | floor [address] [facility] | | | | | | [address] | | | | | | [place], [place] | | | | | | [address] | | | +--------+ + + + [...]
--- OUTSIDE RECORDS SUMMARY | ~2019-04-04 | XMS | Encounter Summary ---
Demographics + + + | Address | [address] | | | [place] [address] | + + + | Home Phone [...] Author | [facility] [employer] [facility] | + + + | Organization | [facility] [employer] [facility] | + + + | Address | Unknown | + + + | Phone | Unavailable | + + + Support + + +---------+ + | Name | Relationship | Address | Phone | + + +---------+ + | Kaylie Baig | ECON | Unknown | | + + +---------+ + Care Team Providers + +------+ + | Care Vfx Artist Name | Role | Phone | + +------+ + | No Pcp Per Patient | PCP | Unavailable | + +------+ + Encounter Details +--------+ + + + + | Date | Type | Department | Care Team | Description | +--------+ + + + + | 10/24/ | Procedure | 6A Intra Op [facility] | | | | 2018 | Pass | [facility] | | | | | | Admitting Desk | | | | | | Located on the 9th | | | | | | floor [address] [facility] | | | | | | [address] | | | | | | [place], [place] | | | | | | [address] | | | +--------+ + + + [...]
--- OUTSIDE RECORDS SUMMARY | ~2019-04-04 | XMS | Encounter Summary ---
Demographics + + + | Address | [address] | | | [place] [address] | + + + | Home Phone [...] + | Author | [facility] | + + + | Organization | [facility] [employer] [facility] | + + + | Address | Unknown | + + + | Phone | Unavailable | + + + Support + + +---------+ + | Name | Relationship | Address | Phone | + + +---------+ + | Kaylie Baig | ECON | Unknown | | + + +---------+ + Care Team Providers + +------+ + | Care Dining Services Manager Name | Role | Phone [...] CENTER | | | | | | [address] | | | | | | [place] Mailcode: | | | | | | [address] | | | | | | [facility] | | | | | | [place], [place] | | | | | | [address] | | | | | | [phone] | | | +--------+ + + + [...]
--- OUTSIDE RECORDS SUMMARY | ~2019-04-04 | XMS | Encounter Summary ---
Demographics + + + | Address | [address] | | | [place] [address] | + + + | Home Phone [...] + | Author | [facility] [employer] [facility] | + + + | Organization | [facility] [employer] [facility] | + + + | Address | Unknown | + + + | Phone | Unavailable | + + + Support + + +---------+ + | Name | Relationship | Address | Phone | + + +---------+ + | Kaylie Baig | ECON | Unknown | | + + +---------+ + Care Team Providers + +------+ + | Care Packager And Strapper Name | Role | Phone | + +------+ + | No Pcp Per Patient | PCP | Unavailable | + +------+ + Encounter Details +--------+ + + + + | Date | Type | Department | Care Team | Description | +--------+ + + + + | 08/31/ | Procedure | Diagnostic Imaging | | | | 2017 | Pass | Services at [facility] | | | | | | [address] | | | | | | [place] Mailcode: | | | | | | [address] [facility] | | | | | | [place], [place] | | | | | | [address] | | | | | | [phone] | | | +--------+ + + + [...]
--- OUTSIDE RECORDS SUMMARY | ~2019-04-04 | XMS | Encounter Summary ---
Demographics + + + | Address | [address] | | | [place] [address] | + + + | Home Phone [...] | Author | [facility] [employer] [facility] | + + + | Organization | [facility] [employer] [facility] | + + + | Address | Unknown | + + + | Phone | Unavailable | + + + Support + + +---------+ + | Name | Relationship | Address | Phone | + + +---------+ + | Kaylie Baig | ECON | Unknown | | + + +---------+ + Care Team Providers + +------+ + | Care Insurance Sales Supervisor Name | Role | Phone | [...] | | 2018 | anned | Services [id number] | | | | | [address] | | | | | | Mailcode: [id number] | | | | | | [facility] | | | | | | [place], [place] | | | | | | [address] | | | | | | [phone] | | | +--------+ + + + [...]
--- OUTSIDE RECORDS SUMMARY | ~2019-04-04 | XMS | Encounter Summary ---
Demographics + + + | Address | [address] | | | [place] [...] Author | [facility] [employer] [facility] | + + + | Organization | [facility] [employer] 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
--- OUTSIDE RECORDS SUMMARY | ~2019-04-04 | XMS | Encounter Summary ---
Demographics + + + | Address | [address] | | | [place] [address] | + + + | Home Phone [...] + | Author | [facility] [facility] | + + + | Organization | [facility] [employer] [facility] | + + + | Address | Unknown | + + + | Phone | Unavailable | + + + Support + + +---------+ + | Name | Relationship | Address | Phone | + + +---------+ + | Kaylie Baig | ECON | Unknown | | + + +---------+ + Care Team Providers + +------+ + | Care Hospital Admissions Officer Name | Role | Phone | [...] RE-OPENING RIGHT | | 2018 | | [facility] | [address] | FRONTO-TEMPORAL | | | | Admitting Desk | Vilma Dave [place], | WOUND FOR RIGHT | | | | Located on the | [place] [address] | SYNTHETIC | | | | floor [address] [facility] | [phone] | CRANIOPLASTY | | | | [address] | | | | | | [place], [place] | | | | | | [address] | | | +--------+---------+ + + + [...] from the original. [facility] Discharge Summary Discharging Provider: [...] risk for aspiration # nutrition - NPO, SERVICE OBSERVER CHIEF evaluating patient when out of c collar [...] - Neurosurgery following peripherally - Must wear ASSOCIATE DIRECTOR OF DEVELOPMENT when OOB, ok for C-collar only when in bed - 12 week collar period up on 11/23, Neurosurgery documented C collar/ASSOCIATE DIRECTOR OF DEVELOPMENT weaning protocol o gloria next 5 weeks- [...] DC. He will need home health PT/ OT/SERVICE OBSERVER CHIEF, which will not be arranged until next [...] None required Recommended rehabilitation therapies: Home health PT/OT/SERVICE OBSERVER CHIEF Discharge Medications: Medication List START taking these [...] arrange [facility] 2-4 weeks. [...] that I, or Nurse Practitioner or Physician Receiving Lead working with me, had a face to face encounter with this patient on 12/06/2017 On behalf of Attending Physician: Chaz Munoz MD I am ordering and certify that the following services are medically necessary home [facility] Physical Therapy Evaluate and Treat I am ordering and certify that the following services are medically necessary [facility] Occupational Therapy Evaluate and Treat I am ordering and certify that the following services are medically necessary [facility] Speech Language Pathology Evaluate and Treat I am ordering and certify that the following services are medically necessary home health [facility] HUMAN RESOURCES HR GENERALIST Evaluate and Treat I certify that the patient is homebound based on the following clinical findings Post-hospi rakesh weakness, decreased strength and endurance, and tires easily with minimal exertion Follow Up: Schedule the following appointment(s) when you get home Call [facility] TRAUMA PPV. Why: As needed with questions, not mandatory Contact information [address] [facility] [address] Primary care provider. Schedule an [...] is 23.14 kg/m. Discharging Provider: [facility]charg[facility] Surgeon : Magali Elias MD [facility] Division of Acute Care Surgery/Critical Care [address] [place] [address] [id number] signed by Magali Elias MD,MPH at 12/09/2017 [...] EOMI Neck: weaning cervical aspen collar & ASSOCIATE DIRECTOR OF DEVELOPMENT per NSG weaning protocol Respiratory: unlabored on [...] Started bolus tube feeds 11/23: Begun C collar/ASSOCIATE DIRECTOR OF DEVELOPMENT weaning 11/28: Psychiatry re-consulted for behavioral issues [...] risk for aspiration # nutrition - NPO, SERVICE OBSERVER CHIEF evaluating patient when out of c collar [...] - Neurosurgery following peripherally - Must wear ASSOCIATE DIRECTOR OF DEVELOPMENT when OOB, ok for C-collar only when in bed - 12 week collar period up on 11/23, Neurosurgery documented C collar/ASSOCIATE DIRECTOR OF DEVELOPMENT weaning protocol o gloria next 5 weeks- [...] obic coverage Disposition: continue tube feeds, continue SERVICE OBSERVER CHIEF evals while c collar off. Started depakote f or agitation with good response. Girlfriend Magali will be visiting today, this is ok per his sister Annita (see social work note). [place] [phone] [facility] [place] [address] [phone] Associated attestation - Magali Elias MD,MPH - [...] EOMI Neck: weaning cervical aspen collar & ASSOCIATE DIRECTOR OF DEVELOPMENT per NSG weaning protocol Respiratory: unlabored on [...] Started bolus tube feeds 11/23: Begun C collar/ASSOCIATE DIRECTOR OF DEVELOPMENT weaning 11/28: Psychiatry re-consulted for behavioral issues [...] risk for aspiration # nutrition - NPO, SERVICE OBSERVER CHIEF evaluating patient when out of c collar [...] - Neurosurgery following peripherally - Must wear ASSOCIATE DIRECTOR OF DEVELOPMENT when OOB, ok for C-collar only when in bed - 12 week collar period up on 11/23, Neurosurgery documented C collar/ASSOCIATE DIRECTOR OF DEVELOPMENT weaning protocol o gloria next 5 weeks- [...] obic coverage Disposition: continue tube feeds, continue SERVICE OBSERVER CHIEF evals while c collar off. Started depakote f or agitation with good initial response. [place] placement [place] adult [place] [address] [facility] [address] [place] [facility] [phone] Associated attestation - Magali Elias MD,MPH - [...] Started bolus tube feeds 11/23: Begun C collar/ASSOCIATE DIRECTOR OF DEVELOPMENT weaning 11/28: Psychiatry re-consulted for behavioral issues [...] risk for aspiration # nutrition - NPO, SERVICE OBSERVER CHIEF evaluating patient when out of c collar [...] - Neurosurgery following peripherally - Must wear ASSOCIATE DIRECTOR OF DEVELOPMENT when OOB, ok for C-collar only when in bed - 12 week collar period up on 11/23, Neurosurgery documented C collar/ASSOCIATE DIRECTOR OF DEVELOPMENT weaning protocol o gloria next 5 weeks- [...] obic coverage Disposition: continue tube feeds, continue SERVICE OBSERVER CHIEF evals while c collar off. Starting depakote for agitation. Pending placement at adult foster home Sher[place] [phone] [facility] [place] [id number] [place] [address] [phone] Associated attestation - Magali Elias MD,MPH - 12/03/2017 1:27 PM PDTI was present and rounded with the ANP Sherine Sarmiento today. I interviewed and examined the patient. I reviewed the history, as documented today. I participated in the development of and agree wi th the assessment and plan. Pulled gastrostomy tube, replaced last pm in good position via f luoro. Delirium mgmt huge issue, back on haldol [...] . Ok to resume feeds. Ad Callejas [id number] riva, Venita Maciel PA-C - 12/02/2017 10:55 AM [...] Started bolus tube feeds 11/23: Begun C collar/ASSOCIATE DIRECTOR OF DEVELOPMENT weaning 11/28: Psychiatry re-consulted for behavioral issues [...] risk for aspiration # nutrition - NPO, SERVICE OBSERVER CHIEF evaluating patient when out of c collar [...] - Neurosurgery following peripherally - Must wear ASSOCIATE DIRECTOR OF DEVELOPMENT when OOB, ok for C-collar only when [...] obic coverage Disposition: continue tube feeds, continue SERVICE OBSERVER CHIEF evals while c collar off. Optimize sleep. Venita Pruitt PA-[place] [phone] [place] [phone] [facility] [address] [place] [address] Associated attestation - Magali [...] Started bolus tube feeds 11/23: Begun C collar/ASSOCIATE DIRECTOR OF DEVELOPMENT weaning 11/28: Psychiatry re-consulted for behavioral issues [...] risk for aspiration # nutrition - NPO, SERVICE OBSERVER CHIEF evaluating patient when out of c collar [...] - Neurosurgery following peripherally - Must wear ASSOCIATE DIRECTOR OF DEVELOPMENT when OOB, ok for C-collar only when [...] obic coverage Disposition: continue tube feeds, continue SERVICE OBSERVER CHIEF evals while c collar off. Going back on hald ol for aggression. Optimize sleep. Venita Pruitt [place] [phone] [place] [id number] [place] [address] [phone] Associated attestation - Shiva Nieto MD,MPH - 12/01/2017 2:17 PM PDTATTENDING ADDENDU M: I personally interviewed and examined the patient today with the trauma team and the physic gabriela pharmacy technician assistant. I participated in the development of and agree with the assessment and plan. 1. Scheduled haloperidol BID 5mg. Plus PRN 2. Continue SERVICE OBSERVER CHIEF evaluation 3. Melatonin for qHS sleep Shiva Nieto MD, MPH Attending Surgeon Trauma, Critical Care & Acute Care Surgery [facility] [phone] Monse Carrasco MD,MPH - 11/30/2017 10:43 AM [...] EOMI Neck: intermittently in aspen collar and ASSOCIATE DIRECTOR OF DEVELOPMENT Respiratory: unlabored on room air CV: regular [...] Started bolus tube feeds 11/23: Begun C collar/ASSOCIATE DIRECTOR OF DEVELOPMENT weaning 11/28: Psychiatry re-consulted for behavioral issues [...] risk for aspiration # nutrition - NPO, SERVICE OBSERVER CHIEF evaluating patient when out of c collar [...] - Neurosurgery following peripherally - Must wear ASSOCIATE DIRECTOR OF DEVELOPMENT when OOB, ok for C-collar only when [...] obic coverage Disposition: continue tube feeds, continue SERVICE OBSERVER CHIEF evals while c collar off. Optimize sleep. Monse Carrasco MD MPH [facility] [address] [place] [address] [phone] Associated attestation - Shlomo Rosenthal MD - 12/05/2017 10:55 AM PDTI saw and examined Charli Temple ([id number]) with the TRAUMA team on 11/30/2017. I agree with the assessment and plan a s outlined in this note and participated in the planning of care. I have personally reviewed all pertinent labarotory findings, radiographs, and physiologic parameters. I personally pe rformed pertinent parts of the physical examination and personally formulated the plan with the TRAUMA team. Shlomo Rosenthal MD [facility] Division of Trauma and Critical Care Monse [...] scalp, EOMI Neck: in aspen collar and ASSOCIATE DIRECTOR OF DEVELOPMENT Respiratory: unlabored on room air CV: regular [...] Started bolus tube feeds 11/23: Begun C collar/ASSOCIATE DIRECTOR OF DEVELOPMENT weaning 11/28: Psychiatry re-consulted for behavioral issues [...] risk for aspiration # nutrition - NPO, SERVICE OBSERVER CHIEF evaluating patient when out of c collar [...] - Neurosurgery following peripherally - Must wear ASSOCIATE DIRECTOR OF DEVELOPMENT when OOB, ok for C-collar only when [...] obic coverage Disposition: continue tube feeds, continue SERVICE OBSERVER CHIEF evals and c collar weaning. Optimize sleep Monse Carrasco MD MPH [facility] [employer] [address] [place] [address] [phone] Associated attestation - Brian Painting MD - 12/08/2017 7:33 PM PDTAttending: I saw and examined Berlin Temple ([id number]) with the residents on 11/29/17 and agree with th e assessment and plan as outlined in this note and participated in the planning of care. Brian Painting MD FACS director of employer services Division of Trauma, Critical Care & Acute [...] scalp, EOMI Neck: in aspen collar and ASSOCIATE DIRECTOR OF DEVELOPMENT Respiratory: unlabored on room air CV: regular [...] Started bolus tube feeds 11/23: Begun C collar/ASSOCIATE DIRECTOR OF DEVELOPMENT weaning 11/28: Psychiatry re-consulted for behavioral issues [...] risk for aspiration # nutrition - NPO, SERVICE OBSERVER CHIEF evaluating patient when out of c collar [...] - Neurosurgery following peripherally - Must wear ASSOCIATE DIRECTOR OF DEVELOPMENT when OOB, ok for C-collar only when [...] Pseudomonas - ID following, cefepime course completed 7/5 # Peritonitis - tube feeds into peritoneal cavity, s/p laparotomy & washout 10/12. - Cefepime as above will adequately treat intraabdominal pathology, no indication for anaer obic coverage Disposition: continue tube feeds, continue SERVICE OBSERVER CHIEF evals and c collar weaning Monse Carrasco MD MPH [facility] [address] [facility] [address] [phone] Associated attestation - Brian Painting MD - 11/28/2017 11:06 PM PDTAttending: I saw and examined Berlin Temple ([id number]) with the residents on 11/28/17 and agree with e assessment and plan as outlined in this note and participated in the planning of care. Brian Painting MD FACS director of employer services Division of Trauma, Critical Care & Acute Care Surgery Fernando Li PA - 11/27/2017 3:32 PM PDTFormatting of this note might be differe nt from the original. NEUROSURGERY INPATIENT PROGRESS NOTE Hospital Day: Author; FERNANDO LI PA-C Attending Physician: Chaz Munoz MD Neurosurgery: Magdiel Stock MD Interval Hx: -No events overnight -In process of ASSOCIATE DIRECTOR OF DEVELOPMENT weaning. Denies neck pain. Physical Exam: Last [...] Patient being managed in C collar and ASSOCIATE DIRECTOR OF DEVELOPMENT. -Patient developed drainage from previous crani site [...] imary Team. -Instructions have been provided for ASSOCIATE DIRECTOR OF DEVELOPMENT weaning. -Patient's exam stable. Denies Neck pain. Repeat imaging stable. Scalp incision healing well. -Please contact our service if there are any questions or need to re-consult. -No outpatient Neurosurgery FU needed. FERNANDO LI PA-C [facility] [address] [facility] [address] [place] [address] Pg [phone] MEDICATIONS Current Facility-Administered Medications Medication acetaminophen (TYLENOL) [...] scalp, EOMI Neck: in aspen collar and ASSOCIATE DIRECTOR OF DEVELOPMENT Respiratory: unlabored on room air CV: regular [...] Started bolus tube feeds 11/23: Begun C collar/ASSOCIATE DIRECTOR OF DEVELOPMENT weaning Active issues/Plan: # BIG 3 TBI [...] risk for aspiration # nutrition - NPO, SERVICE OBSERVER CHIEF evaluating patient when out of c collar [...] - Neurosurgery following peripherally - Must wear ASSOCIATE DIRECTOR OF DEVELOPMENT when OOB, ok for C-collar only when [...] obic coverage Disposition: continue tube feeds, continue SERVICE OBSERVER CHIEF evals and c collar weaning CHRISTIAN KELLEY PA-C [facility] [place] [address] [phone] Associated attestation - Brian Painting MD - 11/27/2017 8:50 PM PDTAttending: I saw and examined Berlin Temple ([id number]) with Christian Kelley PA-C on 11/27/17 and agree wi th the assessment and plan as outlined in this note and participated in the planning of care . Increase melatonin and trazodone for insomnia. Enteral feeding via PEG tube for dysphagia. Disposition planning. Brian Painting MD FACS director of employer services Division of Trauma, Critical Care & Acute Care [facility] - 11/26/2017 6:25 AM [...] Weaning C- collar based on NSG plan SERVICE OBSERVER CHIEF continues to follow Current meds: I have [...] Started bolus tube feeds 11/23: Begun C collar/ASSOCIATE DIRECTOR OF DEVELOPMENT weaning Active issues/Plan: # BIG 3 TBI [...] risk for aspiration # nutrition - NPO, SERVICE OBSERVER CHIEF evaluating patient when out of c collar [...] - Neurosurgery following peripherally - Must wear ASSOCIATE DIRECTOR OF DEVELOPMENT when OOB, ok for C-collar only when [...] looking for placement Venita Pruitt PA-C [place] [phone] [facility] [address] [place] [address] Associated attestation - Brian Painting MD - 11/26/2017 8:52 PM PDTAttending: I saw and examined Berlin Temple ([id number]) with Venita Pruitt PA-C on 11/26/17 and agree wi th the assessment and plan as outlined in this note and participated in the planning of care . Continue enteral feeding via PEG tube due to dysphagia. Speech pathology continues to foll ow. Maintain cervical immbolization collar while in bed for C7 bilateral lamina fractures. D ischarge planning. Brian Painting MD FACS director of employer services Division of Trauma, Critical Care & Acute [...] Weaning C- collar based on NSG plan SERVICE OBSERVER CHIEF continues to follow Current meds: I have [...] Started bolus tube feeds 11/23: Begun C collar/ASSOCIATE DIRECTOR OF DEVELOPMENT weaning Active issues/Plan: # BIG 3 TBI [...] risk for aspiration # nutrition - NPO, SERVICE OBSERVER CHIEF evaluating patient when out of c collar [...] - Neurosurgery following peripherally - Must wear ASSOCIATE DIRECTOR OF DEVELOPMENT when OOB, ok for C-collar only when [...] looking for placement Venita Pruitt PA[place] [phone] [facility] [place] [address] [address] [facility] [place] [phone] Associated attestation - Brian Painting MD - 11/26/2017 11:56 AM PDTAttending: I saw and examined Berlin Temple ([id number]) with Venita Pruitt PA-C on 11/25/17 and agree wi th the assessment and plan as outlined in this note and participated in the planning of care . Continue bolus enteral feeding via PEG tube for dysphagia. Trazodone and quetiapine for tr aumatic encephalopathy and agitation. Maintain cervical immbolization collar while in bed. Brina Painting MD FACS director of employer services Division of Trauma, Critical Care & Acute [...] events: No acute events overnight Worked with SERVICE OBSERVER CHIEF yesterday - remains NPO Doing well with c collar/plant inspector weaning plan Current meds: I have [...] to midline right scalp, EOMI Neck: in [place] collar Chest: in ASSOCIATE DIRECTOR OF DEVELOPMENT Respiratory: unlabored on room air CV: regular [...] Started bolus tube feeds 11/23: Begun C collar/ASSOCIATE DIRECTOR OF DEVELOPMENT weaning Active issues/Plan: # BIG 3 TBI [...] risk for aspiration # nutrition - NPO, SERVICE OBSERVER CHIEF evaluating patient when out of c collar [...] - Neurosurgery following peripherally - Must wear ASSOCIATE DIRECTOR OF DEVELOPMENT when OOB, ok for C-collar only when [...] KELLEY PA-C [facility] [place] [address] [address] [facility] [address] Associated attestation - Santos Cardozo MD [...] with speech toward being able to swallow. [id number] Christian Kelley PA-C - 11/23/2017 12:26 PM [...] overnight Planning to begin C collar and ASSOCIATE DIRECTOR OF DEVELOPMENT weaning plan Current meds: I have independently [...] to midline right scalp, EOMI Neck: in [place] collar Chest: in ASSOCIATE DIRECTOR OF DEVELOPMENT Respiratory: CTA bilaterally, lungs symmetrical, equal chest [...] Started bolus tube feeds 11/23: Begun C collar/ASSOCIATE DIRECTOR OF DEVELOPMENT weaning Active issues/Plan: # BIG 3 TBI [...] risk for aspiration # nutrition - NPO, SERVICE OBSERVER CHIEF following - PEG tube feeds switched to goal @ 250 mL x 5/day, 225ml free water flushes 5x/day - SERVICE OBSERVER CHIEF to work with patient on swallow while [...] - Neurosurgery following peripherally - Must wear ASSOCIATE DIRECTOR OF DEVELOPMENT when OOB, ok for C-collar only when [...] KELLEY PA-C [facility] [place] [address] [address] [place] [address] [phone] ELLRandi Atkins, AGACNP - 11/22/2017 6:37 AM PDTFormatting of [...] risk for aspiration # nutrition - NPO, SERVICE OBSERVER CHIEF following - PEG tube feeds switched to [...] - Neurosurgery following peripherally - Must wear ASSOCIATE DIRECTOR OF DEVELOPMENT when OOB, ok for C-collar only when [...] agitation & [place] [phone] [facility] [place] [address] [address] [facility] [place] [facility] [phone] Associated attestation - Fidelina Shields MD - 11/25/2017 5:51 AM PDTAttending: I saw and examined Berlin Temple ([id number]) with KESHAWN Alexander on mornin g rounds 11/22/17 and agree with the assessment and plan as outlined in this note and partic ipated in the planning of care. This is a late entry for care provided on that date. Sleep is somewhat improved with adjusted medication regimen. Increasing mobility. Plan c-c ollar weaning per neurosurgery recs. Fidelina Shields MD Care Manager [facility] Division of Trauma, Critical Care and Acute Care Surgery Office: [phone] Pager: [phone] Fernando Li PA - 11/21/2017 4:21 PM PDTNeurosurgery Brief Note: Reviewed repeat imaging C spine. Ok to start C Collar and ASSOCIATE DIRECTOR OF DEVELOPMENT taper as planned on 11/23/17. Written 5 [...] PA-C [facility] [address] [place] [address] [facility] Hospital[facility] Atkins AGACNP - 11/21/2017 6:52 AM PDTFormatting [...] risk for aspiration # nutrition - NPO, SERVICE OBSERVER CHIEF following - PEG tube feeds switched to [...] - Neurosurgery following peripherally - Must wear ASSOCIATE DIRECTOR OF DEVELOPMENT when OOB, ok for C-collar only when [...] Sleep & [place] [address] [facility] [place] [address] [address] [place] [address] [phone] Associated attestation - Fidelina Shields MD - 11/21/2017 2:27 PM PDTAttending: I saw and examined Berlin Temple ([id number]) with KESHAWN Alexander on mornin g rounds [...] mobility and daytime wakefullness. Fidelina Shields MD Care Manager [facility] Division of Trauma, Critical Care and Acute Care Surgery Office: [phone] Pager: [phone] Venita Pruitt PA-C - 11/20/2017 12:31 PM [...] risk for aspiration # nutrition - NPO, SERVICE OBSERVER CHIEF following - PEG tube feeds switched to [...] - Neurosurgery following peripherally - Must wear ASSOCIATE DIRECTOR OF DEVELOPMENT when OOB, ok for C-collar only when [...] seroquel as needed. Venita Pruitt PA-C [place] [phone] [facility] [place] [address] [phone] Associated attestation - Fidelina Shields MD - [...] Placement remains a challenge. Fidelina Shields MD Care Manager [facility] Division of Trauma, Critical Care and Acute Care Surgery Office: [phone] Pager: [phone] Fernando Li PA - 11/20/2017 10:51 AM [...] Patient being managed in C collar and ASSOCIATE DIRECTOR OF DEVELOPMENT. -Patient developed drainage from previous crani site [...] Spine immobilization. Cervical collar while in bed, ASSOCIATE DIRECTOR OF DEVELOPMENT when OOB planned duration of immobilization 12 weeks total: 11/23/17. Will then wean out of Cervical collar over 5 week period. Will provide written instructions. FERNANDO LI PA-C [facility] [address] [place] [phone] MEDICATIONS Current Facility-Administered Medications Medication acetaminophen (TYLENOL) [...] risk for aspiration # nutrition - NPO, SERVICE OBSERVER CHIEF following - PEG tube feeds switched to [...] - Neurosurgery following peripherally - Must wear ASSOCIATE DIRECTOR OF DEVELOPMENT when OOB, ok for C-collar only when [...] seroquel as needed. Venita Pruitt PA-C [place] [phone] [place] [phone] [facility] [employer] [address] [place] [address] [place] [phone] Associated attestation - Fidelina Shields MD - 11/19/2017 2:24 PM PDTAttending: I saw and examined Berlin Temple with Venita Pruitt PA-C on morning rounds 07/24/18 and ag ree with the assessment and plan as outlined in this note and participated in the planning o f care. Adjusting antipsychotic medication and behavioral interventions while we search for suitabl e discharge plan. Fidelina Shields MD Care Manager [facility] Division of Trauma, Critical Care and Acute Care Surgery Office: [phone] Pager: [phone] Fernando Li PA - 11/18/2017 9:03 AM [...] O2 Delivery Device: None (room air) (11/18/17 0718) 24 Hour Vital Min/Max: Systolic (24hrs), Av [...] Patient being managed in C collar and ASSOCIATE DIRECTOR OF DEVELOPMENT. -Patient developed drainage from previous crani site [...] Spine immobilization. Cervical collar while in bed, ASSOCIATE DIRECTOR OF DEVELOPMENT when OOB planned duration of immobilization 12 weeks total: 11/23/17. Will then wean out of Cervical collar over 5 week period. Will provide written instructions. FERNANDO LI PA-C [facility] [address] [place], [place] [phone] Pg [phone] MEDICATIONS Current Facility-Administered Medications Medication acetaminophen (TYLENOL) [...] risk for aspiration # nutrition - NPO, SERVICE OBSERVER CHIEF following - PEG tube feeds switched to [...] - Neurosurgery following peripherally - Must wear ASSOCIATE DIRECTOR OF DEVELOPMENT when OOB, ok for C-collar only when in bed - Will likely need for 12 weeks (ends November 23), then wean out of Cervical collar over 5 w eklutna period. Per NSG they will provide written [...] haldol as tolerated Venita Pruitt PA-[place] [phone] [facility] & [address] [place] [facility] [phone] Associated attestation - Fidelina Shields MD - 11/19/2017 12:18 AM PDTAttending: I saw and examined [place] Temple with Venita Pruitt PA-C on morning rounds 11/18/17 and ag ree with the assessment and plan as outlined in this note and participated in the planning o f care. Mental status continues to wax/wane, working on disposition options. Fidelina Shields MD Care Manager Cna Division of Trauma, Critical Care and Acute Care Surgery Office: [phone] Pager: [phone] Sherine Sarmiento, AGACN - 11/17/2017 10:49 AM PDTFormatting of this [...] G tube seen immediately in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 [phone] [facility] [place] [address] [place] [facility] [place] [address] Associated attestation - Fidelina Shields [...] and only enteral access. Fidelina Shields MD Care Manager Cna Division of Trauma, Critical Care and Acute Care Surgery Office: [phone] Pager: [phone] [facility] - 10/03/2017 3:13 PM PDT Trauma Acute [...] - Refreshable Recent Labs 10/01/17 0510/02/17 0510/03/17 06 WBC 9.02 12.64* 9.40 HB 12.5* [...] (baseline from previous TBI ) Neck: in Dryfork collar Respiratory: CTA bilaterally, no distress CV: [...] p atient unable to come out fo ASSOCIATE DIRECTOR OF DEVELOPMENT for now Resolved or chronic issues/Plan: Previous [...] by patient, but wound remains duke n/dry/intact. Denton removed 09/17. #Left hemothorax Chest tube placed [...] PDTAttending: I saw and examined Berlin Temple ([id number]) with CB Hair on morning rounds 10/03 and agree with the assessment and plan as outlined in this note and participated in the planning of care. Mental status is slightly better, remains sedated but he is interactive and at least somewh at oriented. Enteral nutrition advancing and, as approaches goal, will turn TPN off. Place ment remains a significant issue. Fidelina Shields MD Care Manager Cna Division of Trauma, Critical Care and Acute Care Surgery Office: [phone] Pager: [phone] July Banegas PA-C - 10/03/2017 12:58 PM [...] the C-collar when in bed then the ASSOCIATE DIRECTOR OF DEVELOPMENT when out of bed until 12/01/17. JULY BANEGAS PA-C [facility] [address] [place] [address] Associated attestation - Magdiel Stock MD - 10/04/2017 6:02 PM PDTI performed a history a nd physical examination of the patient and discussed the management with the advanced practi ce provider, July Banegas PA-C. I reviewed the advanced practice provider's note and agree w ith the plan of care as documented. Continue cervical collar and ASSOCIATE DIRECTOR OF DEVELOPMENT for 3 months to ensure fracture healing and prevent development of post-fracture cervical kyphosis. Magdiel Stock MD Care Manager Cna Department of Neurological Surgery [facility] [place] Sherine Sarmiento, AGACNP - 10/02/2017 12:54 PM [...] Recent Labs 09/30/173 10/01/17 0525 10/02/17 0512 10/02/17 0604 10/02/17 [...] (baseline from previous TBI ) Neck: in Dryfork collar Respiratory: CTA bilaterally, lungs symmetrical, equal chest wall rise, no retractions CV: RRR GI: non tender, soft, active BS, last BM 09/30 : Patient voiding without difficulty Extremities: no peripheral edema, wiggles toes and toes pink and well perfused Musculoskeletal: 5/5 systems consultant strength on right, 3/5 systems consultant strength on left FEN: on TPN, [...] AMS & delirium - numerous evaluations by SERVICE OBSERVER CHIEF with trials of PO - now s/p [...] . - C-collar at all times, use ASSOCIATE DIRECTOR OF DEVELOPMENT when OOB - Follow-up with Neurosurgery on [...] will decrease scheduled [place]. [place]g [phone] Associated attestation - Fidelina Shields MD - 10/02/2017 4:40 PM PDTAttending: I saw and examined Berlin Temple ([id number]) with KESHAWN Alexander on mornin g rounds [...] place prior to DC Fidelina Shields MD Care Manager Cna Division of Trauma, Critical Care and Acute Care Surgery Office: [phone] Pager: [phone] Sherine Sarmiento AGACNP - 10/01/2017 7:27 AM [...] (baseline from previous TBI ) Neck: in Dryfork collar Respiratory: CTA bilaterally, lungs symmetrical, equal chest wall rise, no retractions CV: RRR GI: non tender, soft, active BS, last BM 09/30 : Patient voiding without difficulty Extremities: no peripheral edema, wiggles toes and toes pink and well perfused Musculoskeletal: 5/ systems consultant strength on right, 3/5 systems consultant strength on left FEN: on TPN [...] AMS & delirium - numerous evaluations by SERVICE OBSERVER CHIEF with trials of PO - now s/p modified barium swallow x2 which indicates aspiration - continue NPO - SERVICE OBSERVER CHIEF reports that patient working on tongue strength [...] . - C-collar at all times, use ASSOCIATE DIRECTOR OF DEVELOPMENT when OOB - Follow-up with Neurosurgery on [...] with trauma team and sister. Sherine Sarmiento, [facility] [place] [phone] Associated attestation - Fidelina Shields MD - 10/02/2017 4:40 PM PDTAttending: I saw and examined Berlin Temple ([id number]) with KESHAWN Alexander on mornin g rounds 10/01/17 and agree with the assessment and plan as outlined in this note and partic ipated in the planning of care. Will trial DHT placement today, CT head unchanged. Suspect somnolence is medication side ef fect and, if persistent, may need to wean antipsychotic doses. Fidelina Shields MD Care Manager Cna Division of Trauma, Critical Care and Acute Care Surgery Office: [phone] Pager: [phone] Christian Kelley PA-C - 09/30/2017 12:21 PM [...] Fixed and dilated on left Neck: in Dryfork collar Respiratory: CTA bilaterally, lungs symmetrical, equal chest wall rise, no retractions CV: RRR GI: non tender, soft, active BS, last BM 09/30 : Patient voiding without difficulty Extremities: no peripheral edema, wiggles toes and toes pink and well perfused Musculoskeletal: 5/5 systems consultant strength on right, 3/5 systems consultant strength on left FEN: on TPN [...] AMS & delirium - numerous evaluations by SERVICE OBSERVER CHIEF with trials of PO - now s/p modified barium swallow x2 which indicates aspiration - continue NPO - SERVICE OBSERVER CHIEF reports that patient working on tongue strength [...] . - C-collar at all times, use ASSOCIATE DIRECTOR OF DEVELOPMENT when OOB - Follow-up with Neurosurgery on 10/21 with repeat X-rays #Blunt abdominal trauma #Splenic laceration S/p laparotomies x2. Fascia closed 09/02 Wound vac removed by patient, but wound remains duke n/dry/intact. Denton removed 09/17. #Left hemothorax Chest tube placed [...] PDTAttending: I saw and examined Berlin Temple ([id number]) with Christian Kelley PA-C on morning rounds 09/30 and agree with the assessment and plan as outlined in this note and participated in the planning of care. Mentally slower this morning, but non-focal. Received haldol overnight for sleep. Repeat head CT was unchanged so suspect etiology of slowed responsiveness is the antipsychotic dose . SERVICE OBSERVER CHIEF believes that, once collar off, may be able to take PO more effectively and thus will hold off on surgical feeding access. TPN is a temporary solution and if patient remains kaye nable will trial DHT tomorrow. Working with psychiatry for medication recommendations. Fidelina Shields MD Care Manager Cna Division of Trauma, Critical Care and Acute Care Surgery Office: [phone] Pager: [phone] July Banegas PA-C - 09/30/2017 8:23 AM PDTBrief Neurosurgery Wound Check: Wound is dry, without erythema, not fluctuant. No acute swelling. Nylon in place. Will plan to follow peripherally for wound checks and remove nylons on 10/09. JULY BANEGAS PA-C [facility] [address] [place] [address] Christian Begum PA-C - 09/29/2017 7:15 AM [...] and EOMs intact to exam Neck: in Dryfork collar Respiratory: CTA bilaterally, lungs symmetrical, equal [...] AMS & delirium - numerous evaluations by SERVICE OBSERVER CHIEF with trials of PO - now s/p [...] . - C-collar at all times, use ASSOCIATE DIRECTOR OF DEVELOPMENT when OOB - Follow-up with Neurosurgery on [...] PDTAttending: I saw and examined Berlin Temple ([id number]) with Christian Kelley PA-C on morning rounds [...] TPN is not an opt imal intermediate teacher strategy, would prefer not to place surgical feeding tube if possible given r elatively recent damage control laparotomy and high risk of Mr. Temple pulling it out. Have tried DHT several times and it seems to worsen delirium and he pulls it out frequently. Tit ration of haldol in conjunction with psychiatry. Fidelina Shields MD Care Manager Cna Division of Trauma, Critical Care and Acute Care Surgery Office: [phone] Pager: [phone] Christian Kelley PA-C - 09/28/2017 1:01 PM [...] he said, who, ariel? And then the METAL MILLING MACHINE OPERATOR helped him make a call to [...] and EOMs intact to exam Neck: in Dryfork collar Respiratory: CTA bilaterally, lungs symmetrical, equal chest wall rise, no retractions CV: RRR, no murmurs, rubs, or gallops GI: non tender, soft, active BS, healing midline incisions, last BM 09/28 : jaunita briefs, good urine output Extremities: no peripheral [...] very agitated today. - EKG today with [place] QTc calculated to be 428 - optimize [...] AMS & delirium - numerous evaluations by SERVICE OBSERVER CHIEF with trials of PO - now s/p [...] . - C-collar at all times, use ASSOCIATE DIRECTOR OF DEVELOPMENT when OOB - Follow-up with Neurosurgery on [...] more toda y. Chaz Munoz MD, FACS Care Manager Cna, Trauma, Critical Care and Acute Care Surgery Chaz Munoz MD - 09/28/2017 10:13 AM PDTTrauma Staff Seen and examined this AM with team. I have concerns abotu behaviour, as he is consistently threatening RN and ancillary staff, even attempting swings. Behavior seems worse at night. I would favor increasing night time Haldol dose, and following EKGs. Chaz Munoz MD, FACS Care Manager Cna, Trauma, Critical Care and Acute Care Surgery [...] Dallin Bourgeois MD Neurosurgery PGY1 | Pager #[phone] Christian Begum PA-C - 09/27/2017 7:31 AM [...] able to have a linear conversation briefly SERVICE OBSERVER CHIEF requesting repeat barium swallow Current meds: I [...] incision healing , suture c/d/I Neck: in ASSOCIATE DIRECTOR OF DEVELOPMENT Respiratory: unlabored on room air, lungs symmetrical, [...] AMS & delirium - numerous evaluations by SERVICE OBSERVER CHIEF with trials of PO - now s/p [...] . - C-collar at all times, use ASSOCIATE DIRECTOR OF DEVELOPMENT when OOB - Follow-up with Neurosurgery on 10/21 with repeat X-rays #Blunt abdominal trauma #Splenic laceration S/p laparotomies x2. Fascia closed 09/02 Wound vac removed by patient, but wound remains duke n/dry/intact. Denton removed 09/17. #Left hemothorax Chest tube placed [...] MD [facility] [address] [place] [address] Christian Kellye PA-C - 09/26/2017 6:48 AM PDTFormatting of [...] posterior scalp crani incision c/d/I Neck: in Dryfork collar Respiratory: unlabored on room air CV: [...] AMS & delirium - numerous evaluations by SERVICE OBSERVER CHIEF with trials of PO - now s/p [...] . - C-collar at all times, use ASSOCIATE DIRECTOR OF DEVELOPMENT when OOB - Follow-up with Neurosurgery on 10/21 with repeat X-rays #Blunt abdominal trauma #Splenic laceration S/p laparotomies x2. Fascia closed 09/02 Wound vac removed by patient, but wound remains duke n/dry/intact. Denton removed 09/17. #Left hemothorax Chest tube placed [...] MD [facility] [address] [place] [address] Christian Kelley PA-C - 09/25/2017 7:49 AM [...] HEENT: EOMs intact to exam Neck: in ASSOCIATE DIRECTOR OF DEVELOPMENT brace Respiratory: unlabored on room air CV: [...] AMS & delirium - numerous evaluations by SERVICE OBSERVER CHIEF with trials of PO - now s/p [...] . - C-collar at all times, use ASSOCIATE DIRECTOR OF DEVELOPMENT when OOB - Follow-up with Neurosurgery on [...] MD [facility] [address] [place] [address] Christian Kelley PA-C - 09/24/2017 11:07 AM [...] with agitation Having difficulty swallowing again - SERVICE OBSERVER CHIEF to re-eval and obtain barium swallow Current [...] HEENT: EOMs intact to exam Neck: in ASSOCIATE DIRECTOR OF DEVELOPMENT brace Respiratory: CTA bilaterally, lungs symmetrical, equal chest wall rise, no retractions CV: RRR GI: non distended, last BM 09/23 : good urine output Extremities: SCD's in place, no peripheral edema, wiggles toes and toes pink and well perfu sed Musculoskeletal: 5/5 strength in bilateral systems consultant (but with slightly weaker on left) [...] likely 2/2 AMS & delirium - Failed SERVICE OBSERVER CHIEF eval 09/19 & 09/20, made NPO & dobhoff reinserted 09/21 but pulled overnight - Per SERVICE OBSERVER CHIEF on 09/21, ok for therapeutic pureed with [...] . - C-collar at all times, use ASSOCIATE DIRECTOR OF DEVELOPMENT when OOB - Follow-up with Neurosurgery on 10/21 with repeat X-rays #Blunt abdominal trauma #Splenic laceration S/p laparotomies x2. Fascia closed 09/02 Wound vac removed by patient, but wound remains duke n/dry/intact. Denton removed 09/17. #Left hemothorax Chest tube placed [...] for dehiscence. EM CUNNINGHAM MD [facility] [address] [place] [address] Ginette Campos PA-C - 09/24/2017 9:31 AM [...] 4 extremities Unable to assess drift. Motor: Solid Waste Engineer Bicep Tricep Delt R 5 5 5 [...] PA-C [facility] [address] [place] [phone] ELLGabriel Atkins AGACNP - 09/23/2017 6:32 AM [...] hiscence, draining minimal serosang fluid Neck: in ASSOCIATE DIRECTOR OF DEVELOPMENT brace Respiratory: unlabored on room air CV: [...] PRN seroquel dose QHS for insomnia/restlessness at [facility] - Repeat ECG 09/22 with QTc [...] likely 2/2 AMS & delirium - Failed SERVICE OBSERVER CHIEF eval 09/19 & 09/20, made NPO & dobhoff reinserted 09/21 but pulled overnight - Per SERVICE OBSERVER CHIEF on 09/21, ok for therapeutic pureed with [...] . - C-collar at all times, use ASSOCIATE DIRECTOR OF DEVELOPMENT when OOB - Follow-up with Neurosurgery on [...] dysphagia & delir ium improves Sherine Sarmiento, [facility] Pg [phone] Dallin Deshpande MD - 09/22/2017 8:03 AM [...] Dallin Bourgeois MD Neurosurgery PGY1 | Pager #[phone] [facility], AGACN - 09/22/2017 6:52 AM PDTFormatting of [...] 24hr events: - Therapeutic purees initiated by SERVICE OBSERVER CHIEF yesterday - Trickle feeds via Dobbhoff, pt pulled Dobbhoff yesterday evening- not replaced - MOTOR GENERATOR SET OPERATOR called around 2130 for new left [...] sluggish. Slight left facial droop Neck: in Dryfork collar Respiratory: unlabored on room air CV: [...] PRN seroquel dose QHS for insomnia/restlessness at [facility]- - Repeat ECG 09/22 with Q Tc WNL. - Haldol 5mg q12hr prn for severe agitation #Substance abuse, concern for Alcohol withdrawal - CIWA discontinued 09/08, not scoring. - Thiamine & folate started 09/21 #Dysphagia, risk for aspiration #Protein calorie malnutirtion - likely 2/2 AMS & delirium - Failed SERVICE OBSERVER CHIEF eval 09/19 & 09/20, made NPO & dobhoff reinserted 09/21 but pulled overnight - Per SERVICE OBSERVER CHIEF on 09/21, ok for therapeutic pureed with [...] . - C-collar at all times, use ASSOCIATE DIRECTOR OF DEVELOPMENT when OOB - Follow-up with Neurosurgery on 10/21 with repeat X-rays #Blunt abdominal trauma #Splenic laceration S/p laparotomies x2. Fascia closed 09/02 Wound vac removed by patient, but wound remains duke n/dry/intact. Denton removed 09/17. #Left hemothorax Chest tube placed [...] when dysphagia & delirium improves Sherine Sarmiento, [facility] [place]g [phone] Associated attestation - Shiva Nieto MD,MPH - [...] Acute Care Surgery [facility] [phone] Sami Black - 09/21/2017 10:25 PM PDTBrief [...] in the morning. Plan: -neuro checks; page [phone] for any decline in neurological examination -pain control -Hard C collar at all times and place ASSOCIATE DIRECTOR OF DEVELOPMENT prior to mobilizing OOB. Anticipated duration of Collar/ASSOCIATE DIRECTOR OF DEVELOPMENT is 12 weeks -repeat CT head for any new decline in neurological exam and page [phone] -NPO at midnight tonight -please hold tonight's planned dose of Lovenox -further recommendations in the morning Sami Black MD, PhD PGY-3 Resident Neurosurgery [id number] signed by Sami Black at 09/21/2017 10:50 PM PDTCleSherine estrella [facility] - 09/21/2017 7:10 AM PDTFormatting [...] Provena placem ent 24hr events: - Failed SERVICE OBSERVER CHIEF eval again yest morning, continued NPO - [...] reactive. Dobbhoff tube in place Neck: in Dryfork collar Respiratory: unlabored on room air CV: [...] likely 2/2 AMS & delirium - Failed SERVICE OBSERVER CHIEF eval 09/19 & 09/20, made NPO & dobhoff reinserted yesterday - Trickle feeds started this am at 20ml/hr, increase very slowly by 10ml every 12 hrs to go al of 75 due to hx of mesenteric hematomas and previous inability to tolerate TF - Per SERVICE OBSERVER CHIEF today, ok for therapeutic pureed with nectar [...] . - C-collar at all times, use ASSOCIATE DIRECTOR OF DEVELOPMENT when OOB - Follow-up with Neurosurgery on [...] & [place] [phone] Associated attestation - Fidelina Shields MD - 09/21/2017 9:36 PM PDTAttending: I saw and examined Berlin Temple ([id number]) with KESHAWN Alexander on mornin g rounds [...] enough to re-trial PO. Fidelina Shields MD Care Manager Cna Division of Trauma, Critical Care and Acute Care Surgery Office: [phone] Pager: [phone] Sherine Sarmiento AGACNP - 09/20/2017 7:41 AM [...] haldol given yesterday afternoon for agitation - SERVICE OBSERVER CHIEF paged to re-eval in afternoon after concern for aspiration, made NPO by SERVICE OBSERVER CHIEF - DARNELL SOLANO Current meds: I have [...] right pupil 3 and reactive Neck: in Dryfork collar Respiratory: unlabored on room air CV: [...] thick/pureed d iet. Made NPO yesterday by SERVICE OBSERVER CHIEF after concern for aspiration. This is likely 2/2 waxing & wan ing delirium & AMS - SERVICE OBSERVER CHIEF re-eval today recommend continue NPO d/t overt clinical signs of aspiration - Place Dobbhoff tube and restart feeds, slowly progress to goal - Stop TPN when tolerating tube feeds - SERVICE OBSERVER CHIEF will follow closely, as his AMS improves [...] . - C-collar at all times, use ASSOCIATE DIRECTOR OF DEVELOPMENT when OOB - Follow-up with Neurosurgery on 10/21 with repeat X-rays #Blunt abdominal trauma #Splenic laceration S/p laparotomies x2. Fascia closed 09/02 Wound vac removed by patient, but wound remains duke n/dry/intact. Denton removed 09/17. #Left hemothorax Chest tube placed [...] dysphagia & delirium i mproves Sherine Sarmiento, [facility] Pg [phone] Associated attestation - Fidelina Shields MD - 09/20/2017 9:34 PM PDTAttending: I saw and examined Berlin Temple ([id number]) with KESHAWN Alexander on mornin g rounds [...] dispo planning when able. Fidelina Shields MD Care Manager Cna Division of Trauma, Critical Care and Acute Care Surgery Office: [phone] Pager: [phone] Mary Medrano MD,MPH - 09/19/2017 6:22 AM [...] downgraded from thin to thick liquids by SERVICE OBSERVER CHIEF Current meds: I have independently reviewed current [...] intact, small Right fluctuant pseudomeningocele Neck: in Dryfork collar Respiratory: unlabored on room air CV: [...] DHT on09/19. - Cleared for diet by SERVICE OBSERVER CHIEF, tolerating purees, 749 Calories yesterday - Restart Calorie count: if taking >700 again will be OK for full po diet, otherwise replac e DHT and restart TF - Stop TPN tomorrow regardless - Still considering repeat CT abdomen/pelvis #Dysphagia DHTreplaced overnight 09/07. TF held due to emesis and possible ileus, aspiration risk. DH T pulled overnight on 09/18 - SERVICE OBSERVER CHIEF as able Resolved or chronic issues/Plan: #BIG 3 TBI #Right synthetic cranioplasty Neurosurgery consulted. Non-operative management. Last head CT 09/12 stable. Expected pseudo meningocele. Left-sided deficits consistent with baseline. - Stat head CT for any neurologic decline #C7 bilateral lamina fractures #C6-T2 spinous process fractures Neurosurgery consulted. Non-operative management. Upright cervical X-rays completed on 09/14 . - C-collar at all times, use ASSOCIATE DIRECTOR OF DEVELOPMENT when OOB - Follow-up with Neurosurgery on 10/21 with repeat X-rays #Blunt abdominal trauma #Splenic laceration S/p laparotomies x2. Fascia closed 09/02 Wound vac removed by patient, but wound remains duke n/dry/intact. Denton removed 09/17. #Left hemothorax Chest tube placed [...] < 160. - Labetalol/hydralazine prn Disposition:Continue acute irvers care. Will need SNF. Mary Medrano M.D., M.P.H. Neurological Surgery Resident PGY-1 Pager: [phone] Associated attestation - Fidelina Shields MD - 09/19/2017 1:36 PM PDTAttending: I saw and examined Berlin Temple ([id number]) with the residents on morning rounds 09/19/17 and agree with the assessment and plan as outlined in this note and participated in the plan aashish of care. Improving po intake, will titrate TPN. Plan to DC TPN tomorrow and transition to PO vs PO + TF depending on calorie counts. Once of restraints will begin looking for placement. Fidelina Shields MD Care Manager [facility] Division of Trauma, Critical Care and Acute Care Surgery Office: [phone] Pager: [phone] Mary Mderano MD,MPH - 09/18/2017 6:17 AM PDTTrauma Acute [...] fascial closure, Provena placem ent 24hr events: Denton removed yesterday Small emesis overnight, nausea resolved [...] fluctuant pseudomeningocele,Dobhoff tubein p lace Neck: in Dryfork collar Respiratory: unlabored on room air CV: [...] holding TF - Cleared for diet by SERVICE OBSERVER CHIEF, tolerating small quantities of purees - Will need repeat CT A/P within 1-2 days #Hypervolemia I&O approaching even. Appears to have been auto-diuresing. - Continue to monitor urine output - Monitor electrolytes, replete prn #Dysphagia DHTreplaced overnight 09/07. TF held due to emesis and possible ileus, aspiration risk. - SERVICE OBSERVER CHIEF as able #C7 bilateral lamina fractures #C6-T2 spinous process fractures Neurosurgery consulted. Non-operative management. Upright cervical X-rays completed on 09/14 . - C-collar at all times, use ASSOCIATE DIRECTOR OF DEVELOPMENT when OOB - Follow-up with Neurosurgery on [...] M.D., M.P.H. Neurological Surgery Resident PGY-1 Pager: [phone] signed by Fidelina Shields MD at 09/19/2017 3:58 PM PDT Associated attestation - Fidelina Shields MD - 09/19/2017 3:58 PM PDTAttending: I saw and examined Berlin Temple ([id number]) with the residents on morning rounds 09/18/17 and agree with the assessment and plan as outlined in this note and participated in the plan aashish of care. Fidelina Shields MD Care Manager [facility] Division of Trauma, Critical Care and Acute Care Surgery Office: [phone] Pager: [phone] Mary Medrano MD,MPH - 09/17/2017 6:26 AM [...] fluctuant pseudomeningocele,Dobhoff tubein p lace Neck: in Dryfork collar Respiratory: unlabored on room air CV: [...] holding TF - Cleared for diet by SERVICE OBSERVER CHIEF, tolerating small quantities of purees #Hypervolemia I&O approaching even. Appears to have been auto-diuresing. - Continue to monitor urine output - Monitor electrolytes, replete prn #Dysphagia DHTreplaced overnight 09/07. TF held due to emesis and possible ileus, aspiration risk. - SERVICE OBSERVER CHIEF as able #C7 bilateral lamina fractures #C6-T2 spinous process fractures Neurosurgery consulted. Non-operative management. Upright cervical X-rays completed on 09/14 . - C-collar at all times, use ASSOCIATE DIRECTOR OF DEVELOPMENT when OOB - Follow-up with Neurosurgery on [...] by patient, but wound remains duke n/dry/intact. Denton removed 09/17. #Left hemothorax Chest tube placed [...] M.D., M.P.H. Neurological Surgery Resident PGY-1 Pager: [phone] signed by Fidelina Shields MD at 09/17/2017 2:29 PM PDT Associated attestation - Fidelina Shields MD - 09/17/2017 2:29 PM PDTAttending: I saw and examined Berlin Temple ([id number]) with the residents on morning rounds 09/17/17 [...] repeat C T abdomen/pelvis. Fidelina Shields MD Care Manager [facility] Division of Trauma, Critical Care and Acute Care Surgery Office: [phone] Pager: [phone] Venita Pruitt PA-C - 09/16/2017 6:45 AM [...] HEENT: DHT in place, CARRI Neck: in Dryfork collar Respiratory: CTA bilaterally, lungs symmetrical, equal [...] daily - Haldol 5mg q12hr prn - SERVICE OBSERVER CHIEF: severe cognitive deficits - continue SERVICE OBSERVER CHIEF therapy #Bilious emesis #Ileus #Aspiration #Leukocytosis - bilious emesis overnight, trickle tube feeds stopped; will restart tube feeds slowly this afternoon and determine tolerance - hx of ileus during hospitalization, NG removed 09/14 - Strict NPO per SERVICE OBSERVER CHIEF - Bowel meds via DHT - TPN continued #Hypervolemia I&O approaching even. Appears to have been auto-diuresing. - Continue to monitor urine output - Monitor electrolytes, replete prn #Dysphagia DHTreplaced overnight 09/07/17. TF held for bilious vomiting last night - SERVICE OBSERVER CHIEF as able - eval from 09/13 with oropharyngeal dysphagia - strict NPO #C7 bilateral lamina fractures #C6-T2 spinous process fractures Neurosurgery consulted. Non-operative management. - C-collar at all times, use ASSOCIATE DIRECTOR OF DEVELOPMENT when OOB - Upright films in ASSOCIATE DIRECTOR OF DEVELOPMENT completed yesterday - follow up in 6 [...] need eventual placement. Venita Pruitt PA-[place] [phone] [facility] & [address] [place] [address] [phone] Associated attestation - Fidelina Shields MD - 09/17/2017 3:42 PM PDTAttending: I saw and examined Berlin Temple with Venita Pruitt PA-C on morning rounds 09/16/17 and ag ree with the assessment and plan as outlined in this note and participated in the planning o f care. Ileus precludes advancing tube feeds. Will allow po as tolerated and continue tpn. Fidelina Shields MD Care Manager [facility] Division of Trauma, Critical Care and Acute Care Surgery Office: [phone] Pager: [phone] Dallin Bourgeois MD - 09/15/2017 12:06 PM PDTBrief Neurosurgery Non-Visit Note We have reviewed cervical plain films with staff. Cont collar precautions as previously rec ommended. We have arranged follow-up in 6 weeks with Frenando Li PA-C with repeat ce rvical x-rays. These orders have been placed. We will sign off at this time. Thank you for i ncluding us in the care of Mr. Temple. Dallin Bourgeois MD Neurosurgery PGY1 [id number] signed by Dallin Bourgeois MD at 09/15/2017 [...] tube in place and EOMI Neck: in Dryfork collar Respiratory: CTA bilaterally, lungs symmetrical, equal [...] daily - Haldol 5mg q12hr prn - SERVICE OBSERVER CHIEF: severe cognitive deficits - continue SERVICE OBSERVER CHIEF therapy #Bilious emesis #Ileus #Aspiration #Leukocytosis On [...] with resolving ileus - trickle feeds per telephone cleaner recommendations started today - TPN consult obtained [...] emesis and possible ileus, aspiration risk. - SERVICE OBSERVER CHIEF as able - eval from 09/13 with oropharyngeal dysphagia - strict NPO #C7 bilateral lamina fractures #C6-T2 spinous process fractures Neurosurgery consulted. Non-operative management. - C-collar at all times, use ASSOCIATE DIRECTOR OF DEVELOPMENT when OOB - Upright films in ASSOCIATE DIRECTOR OF DEVELOPMENT completed yesterday - will notify NSG for [...] alcohol withdrawal and using olanzapine and haldol. SERVICE OBSERVER CHIEF will reeval to day. Continue strict NPO and will start TPN. Off abx. EM CUNNINGHAM MD [facility] [address] [place] [address] Mary Medrano MD,MPH - 09/14/2017 6:39 AM [...] fluctuant pseudomeningocele,Dobhoff tubein p lace Neck: in Dryfork collar Respiratory: sats stable room air, unlabored, [...] emesis and possible ileus, aspiration risk. - SERVICE OBSERVER CHIEF as able #C7 bilateral lamina fractures #C6-T2 spinous process fractures Neurosurgery consulted. Non-operative management. - C-collar at all times, use ASSOCIATE DIRECTOR OF DEVELOPMENT when OOB - Upright films in ASSOCIATE DIRECTOR OF DEVELOPMENT when able Resolved or chronic issues/Plan: #BIG [...] M.D., M.P.H. Neurological Surgery Resident PGY-1 Pager: [phone] signed by Shlomo Rosenthal MD at 09/16/2017 11:14 AM PDT Associated attestation - Shlomo Rosenthal MD - 09/16/2017 11:14 AM PDTFormatting of this note m ight be different from the original. I saw and examined Berlin Temple ([id number]) with the TRAUMA team on 09/14/2017. I [...] shock, initial encounter (HCC) Shlomo Rosenthal MD [facility] Division of Trauma and Critical Care Mary Medrano MD,MPH - 09/13/2017 6:12 AM PDTTrauma Acute Care - Progress Note Name: BERLIN ROLONN: [id number] HPI: Berlin Temple is a67 y.o. male [...] NG tub es in place Neck: in Dryfork collar Respiratory: sats stable room air, unlabored, [...] emesis and possible ileus, aspiration risk. - SERVICE OBSERVER CHIEF as able #C7 bilateral lamina fractures #C6-T2 spinous process fractures Neurosurgery consulted. Non-operative management. - C-collar at all times, use ASSOCIATE DIRECTOR OF DEVELOPMENT when OOB - Upright films in ASSOCIATE DIRECTOR OF DEVELOPMENT when able Resolved or chronic issues/Plan: #BIG [...] M.D., M.P.H. Neurological Surgery Resident PGY-1 Pager: [phone] signed by Greg Paige MD,PhD at 09/13/2017 1:32 PM PDT Associated attestation - Greg Paige MD,PhD - 09/13/2017 1:32 PM PDTEmergency General Young rgery/Trauma Attending Addendum Date of Service: 09/13/2017 I saw and examined Berlin Temple ([id number]) with the resident and agree with the assessmen t and plan as outlined in this note and participated in the planning of care. Greg Paige MD, PhD, FACS rug hooker hand Division of Trauma, Critical Care & Acute Care Surgery [facility] [phone] Mary Medrano MD,MPH - 09/12/2017 6:32 AM [...] NG tub es in place Neck: in Dryfork collar Respiratory: sats stable room air, unlabored, [...] emesis and possible ileus, aspiration risk. - SERVICE OBSERVER CHIEF as able #C7 bilateral lamina fractures #C6-T2 spinous process fractures Neurosurgery consulted. Non-operative management. - C-collar at all times, use ASSOCIATE DIRECTOR OF DEVELOPMENT when OOB - Upright films in ASSOCIATE DIRECTOR OF DEVELOPMENT when able Resolved or chronic issues/Plan: #BIG [...] M.D., M.P.H. Neurological Surgery Resident PGY-1 Pager: [phone] signed by Greg Paige MD,PhD at 09/12/2017 1:24 PM PDT Associated attestation - Greg Paige MD,PhD - 09/12/2017 1:24 PM PDTEmergency General Young rgery/Trauma Attending Addendum Date of Service: 09/12/2017 I saw and examined Berlin Temple ([id number]) with the resident and agree with the assessmen t and plan as outlined in this note and participated in the planning of care. Post-op ileus - continue with NPO/NGT decompression. Consider TPN in the coming days if there is no impro vement. Greg Paige MD, PhD, FACS rug hooker hand Division of Trauma, Critical Care & Acute Care Surgery [facility] [phone] Christian Kelley PA-C - 09/11/2017 3:54 PM [...] and NG tube inn place Neck: in Dryfork collar Respiratory: course bilaterally and diffuse rhonchi, [...] to emesis and possible aspiration event. - SERVICE OBSERVER CHIEF deferring evaluation as patient continues with NGT to suction C7 bilateral lamina fractures C6-T2 spinous process fractures Neurosurgery consulted. Non-operative management. - C-collar at all times, use ASSOCIATE DIRECTOR OF DEVELOPMENT when OOB - Upright films in ASSOCIATE DIRECTOR OF DEVELOPMENT when able Resolved or chronic issues/Plan: BIG [...] 09/11/2017 I saw and examined Berlin Temple ([id number]) with the ASHLEY and agree with the assessment and plan as outlined in this note and participated in the planning of care. Leukocytosis persists. Etiology unclear. Will obtain CT C/A/P to search for source. Mathew-cx if febrile. Greg Paige MD, PhD, FACS rug hooker hand Division of Trauma, Critical Care & Acute Care Surgery [facility] [phone] Ginette Campos PA-C - 09/10/2017 9:32 AM [...] sensation intact in all 4 extremities Motor: Solid Waste Engineer Bicep Tricep Delt R 4 4+ 4 [...] C collar at all times and place ASSOCIATE DIRECTOR OF DEVELOPMENT prior to mobilizing OOB. Anticipated duration of Collar/ASSOCIATE DIRECTOR OF DEVELOPMENT is 12 weeks. -Obtain upright X-rays C spine AP/Lateral when able -Outpatient follow up arranged. Ginette Campos PA-C [facility] [address] [place] [id number] Mary Devine M D,MPH - 09/10/2017 6:27 [...] feeding tu be in place Neck: in Dryfork collar Respiratory: sats stable on 2L NC, [...] to emesis and possible aspiration event. - SERVICE OBSERVER CHIEF as able #C7 bilateral lamina fractures #C6-T2 spinous process fractures Neurosurgery consulted. Non-operative management. - C-collar at all times, use ASSOCIATE DIRECTOR OF DEVELOPMENT when OOB - Upright films in ASSOCIATE DIRECTOR OF DEVELOPMENT when able Resolved or chronic issues/Plan: #BIG [...] M.D., M.P.H. Neurological Surgery Resident PGY-1 Pager: [phone] signed by Greg Paige MD,PhD at 09/10/2017 8:05 PM PDT Associated attestation - Greg Paige MD,PhD - 09/10/2017 8:05 PM PDTEmergency General Young rgery/Trauma Attending Addendum Date of Service: 09/10/2017 I saw and examined Berlin Temple ([id number]) with the resident and agree with the assessmen t and plan as outlined in this note and participated in the planning of care. Greg Paige MD, PhD, FACS rug hooker hand Division of Trauma, Critical Care & Acute Care Surgery [facility] [phone] Mary Medrano MD,MPH - 09/09/2017 6:25 AM [...] feeding tub e in place Neck: in Dryfork collar Respiratory: unlabored on room air, lungs [...] DHT, which was replaced overnight 09/07/17. - SERVICE OBSERVER CHIEF #C7 bilateral lamina fractures #C6-T2 spinous process fractures Neurosurgery consulted. Non-operative management. - C-collar at all times, use ASSOCIATE DIRECTOR OF DEVELOPMENT when OOB - Upright films in ASSOCIATE DIRECTOR OF DEVELOPMENT when able #Fever Febrile on 09/04/17. Mathew-cultures [...] improvement in encephalopathy , dysphagia, rehab recs. Wheatland N. Ross, M.D., M.P.H. Neurological Surgery Resident PGY-1 Pager: [phone] signed by Mary Medrano MD,MPH at 09/09/2017 [...] ccollar at all times, orthotics to provide ASSOCIATE DIRECTOR OF DEVELOPMENT brace - T/L cleared - INR <1.4, check daily - Plt >100k - Check Na at least daily Please contact the neurosurgery resident on-call pager [phone] with questions. Rosa Stallworth MD Resident Physician, PGY-1 Otolaryngology - Head and Neck Surgery Pgr [phone] ary Medrano MD ,MPH - 09/08/2017 6:35 [...] feeding tub e in place Neck: in Dryfork collar Respiratory: unlabored on room air, lungs [...] DHT, which was replaced overnight 09/07/17. - SERVICE OBSERVER CHIEF #C7 bilateral lamina fractures #C6-T2 spinous process fractures Neurosurgery consulted. Non-operative management. - C-collar for now - Orthotics to fit ASSOCIATE DIRECTOR OF DEVELOPMENT brace for OOB activity. #Fever Febrile on [...] M.D., M.P.H. Neurological Surgery Resident PGY-1 Pager: [phone] signed by Santos Cardozo MD at 09/08/2017 12:04 PM PDT Associated attestation - Santos Cardozo MD - 09/08/2017 12:04 PM PDTI was present with the resident during the history and exam. I discussed the case with the resident and agree with the findings and plan as documented in the resident s note. SANTOS CARDOZO MD [facility] [address] [place] [address] [id number] Gurpreet Foy PA-C - 09/07/2017 6:47 AM [...] place Musculoskeletal: Wiggles toes. No LE edema. Solid Waste Engineer strength 5/5 on R, 3/5 on L. [...] primary traum a survey was done at [facility] in [facility] which identified the above listed injuries. [...] in collar currently, orthotics to treat in ASSOCIATE DIRECTOR OF DEVELOPMENT brace when OOB. Don/Doff while in bed [...] Department of Surgery Mail Code: L611 [address] [place] [address] Jeovany Meade MD - 09/07/2017 4:05 AM PDT NEUROSURGERY PROGRESS NOTE INTERVAL UPDATE: Extubated during day yesterday Needs some NT suction Orthotic to fit ASSOCIATE DIRECTOR OF DEVELOPMENT this AM OBJECTIVE: Last 24 hour min/max [...] ccollar at all times, orthotics to proved ASSOCIATE DIRECTOR OF DEVELOPMENT brace - T/L cleared - INR <1.4, check daily - Plt >100k - Check Na at least daily Please contact the neurosurgery resident on-call pager [phone] with questions. Jeovany Villanueva MD Neurosurgery Resident Pager #[phone] NSGY pager #[phone] Janessa Biggs ACN P - 09/06/2017 5:42 [...] Critical Care, and Acute Care Surgery Pager #[phone] Janessa Biggs ACNP - 09/06/2017 8:00 AM [...] primary traum a survey was done at [facility] in [facility] which identified the above listed injuries. [...] Department of Surgery Mail Code: L611 [address] [place] [id number] Associated attestation - Santos Cardozo MD - [...] to face t janie with this patient. [id number] Sami Maldonado MD - 09/06/2017 1:48 AM PDT NEUROSURGERY PROGRESS NOTE INTERVAL UPDATE: Remains intubated Afebrile, Blood cxs from 5/9 NGTD Much less agitated / BP better [...] Please contact the neurosurgery resident on-call pager [phone] with questions. Sami Maldonado MD Neurosurgery, PGY-2 1:51 AM 09/06/2017 anessa Steel ACNP - 09/05/2017 7:11 AM PDT Trauma [...] primary traum a survey was done at [facility] which identified the above listed injuries. He [...] Department of Surgery Mail Code: L611 [address] [place] [address] Associated attestation - Santos Cardozo MD - [...] face to face time with this patient. [id number] Sami Maldonado MD - 09/05/2017 4:32 AM [...] Please contact the neurosurgery resident on-call pager [phone] with questions. Sami Maldonado MD Neurosurgery, PGY-2 [...] Care, and Acute Care Surgery First Call: [phone] oloJanessa mehta ACNP - 09/04/2017 6:20 AM [...] primary traum a survey was done at [facility] in [facility] which identified the above listed injuries. [...] with my s upervising physicians. [facility] Division of Trauma Department of Surgery Mail Code: L611 [address] [place] [address] Associated attestation - Santos Cardozo MD - [...] face to face time with this patient. [id number] Sami Maldonado MD - 09/04/2017 3:41 AM [...] and strong handgrip LUE intermittent weak hand systems consultant, flicker flexor to nox RLE follows [...] Please contact the neurosurgery resident on-call pager [phone] with questions. Sami Maldonado MD Neurosurgery, PGY-2 [...] Evaristo Mendez MD Department [place]opaedics p [phone] Moo Shaffer MD - 09/03/2017 6:17 AM [...] 09/02/17 0640 Gross per 24 hour Intake 81119.73 ml Output 4075 ml Net 8770.73 ml [...] NSG for seizure prophy. Pt was n Kevladislavra prior to admission will request outside hospital [...] Call team 19/11 for questions: Team Pager [phone] Associated attestation - Santos Cardozo MD - [...] time with this patient. SANTOS CARDOZO MD [address] [place] [address] [id number] Sami Maldonado MD - 09/03/2017 2:50 AM [...] and strong handgrip LUE intermittent weak hand systems consultant, flicker flexor to nox BLE follows [...] Please contact the neurosurgery resident on-call pager [phone] with questions. Sami Maldonado MD Neurosurgery, PGY-2 [...] wit h the collar. Magdiel Stock MD Care Manager [facility]na Department of Neurological Surgery [facility] MD - 09/02/2017 8:07 AM PDTOrthopaed [...] Evaristo Mendez MD Department of Orthopaedics p [phone] Moo Shaffer MD - 09/02/2017 7:06 AM [...] 09/02/17 0640 Gross per 24 hour Intake 62404.73 ml Output 4075 ml Net 8770.73 ml [...] Call team 19/11 for questions: Team Pager [phone] Associated attestation - Snatos Cardozo MD - [...] time with this patient. SANTOS CARDOZO MD [facility] [address] [id number] [place] [address] [id number] George Shah MD - 09/02/2017 6:45 AM [...] Drains:240] 08/31 2300 - 09/01 230 In: 61296.5 [I.V.:30366.5] Out: 3480 [Urine:1510; Drains:1470] No Data Recorded [...] and strong handgrip LUE intermittent weak hand systems consultant, no movement to nox BLE follows [...] Please contact the neurosurgery resident on-call pager [phone] with questions. Sami Maldonado MD Neurosurgery, PGY-2 1:32 AM 09/02/2017 ADDENDUM -T+L spines cleared radiographically -cont ccollar -OR on hold until medically stable Shiva White MD Neurological Surgery PGY2 Sami Dover - 0 09/01/2017 5:22 PM PDTNEUROSURGERY Post-op [...] MD, PhD PGY-3, Neurosurgery 5:22 PM, 09/01/2017 [id number] signed by Sami Black at 09/01/2017 5:27 [...] KATIA IQBAL MD Orthopaedic Surgery PGY-4 Pager: [phone] George Cowan MD - 09/01/2017 2:16 PM [...] for this procedure can be found in [facility], under the results review tab for ([facility]) Interventional Radiology. Alternatively, they can be found in [facility] under nima rt review, imaging tab. Full report can also be found in [employer]* as REPORT under the specifie d procedure. Please call IR for any questions. Sami Dover - 09/01 9:35 AM PDTBrief Progress Note I attempted to contact the patient's significant other, Magali, at [phone] as listed in the chart for consent. However, there was no answer. I did leave a message asking for call back. In the meantime, I will pursue two-attending consent for OR so there is no delay if I lizabeth nue to be unable to contact an appropriate consentor for this patient. Sami Black MD, PhD PGY-3 Resident Neurosurgery [id number] signed by Sami Black at 09/01/2017 9:37 [...] Call team 19/11 for questions: Team Pager [phone] Associated attestation - Fidelina Shields MD - 09/01/2017 6:55 PM PDTICU Attending: I saw and examined Berlin Temple ([id number]) with the residents on 09/01/17 and agree [...] event note this morning. Fidelina Shields MD Care Manager [facility] Division of Trauma, Critical Care and Acute Care Surgery Office: [phone] Pager: [phone] This has been electronically signed by Fidelina [...] 200 [Urine:190; Drains:10] 08/30 2300 - 08/31 2300 In: 1851.8 [I.V.:1591.8] Out: 710 [Urine:710] No [...] Please contact the neurosurgery resident on-call pager [phone] with questions. Shiva White MD Neurological Surgery [...] proceed with MRI. Chaz Munoz MD, FACS Care Manager Cna, Trauma, Critical Care and Acute Care Surgery [...] | SAVANA CROWE (ALL | Routin | 09/02/2017 | | [...] + | [facility] | [address] [facility] [facility] | [place], [place] | | | CARDIOLOGY | [address] | [address] | | + + + + + [...] | | | LABORATORY | | | QATARI | | | SERVICES, | | | [...] | + + + + + | [facility] | [address] | [place] [address] | | | SERVICES, CORE | [place] [...] SYSTEM LABORATORY | [address] | [place] [address] | | | SERVICES, CORE | [address] | | | + + + + + 12 LEAD ECG (12/04/2017 10:25 AM PDT) + + + + + + | Component | Value | Ref Range | Performed | Pathologist | | | | | At | Signature | + + + + + + | VENTRICULAR | 68 | bpm | [facility] | | [...] + | [facility] | [address] [facility] | [place], [place] | | | CARDIOLOGY | [address] | [address] | | + + + + + [...] + + | [facility] | [address] | [place] [address] | | | SERVICES, CORE | [address] [...] DEPT OF | [address] | [place], [place] | | | CARDIOLOGY | [address] | [address] | | + + + + + [...] Note | + + | Service Account, COSMIC COLOR Res In Interface - 12/03/2017 4:56 PM [...] + + | [facility] | [address] | [place] [address] | | | NATALEE WOR[place] | [place] [...] Note | + + | Service Account, COSMIC COLOR Res In Interface - 12/03/2017 10:30 AM [...] + + | [facility] | [address] | [place], [place] | | | CARDIOLOGY | [address] | [address] | | + + + + + [...] | + + + + + | [facility] | [address] | [place] [address] | | | SERVICES, CORE | [address] [...] + | [facility] - | [address] | [place] [address] | | | [place] | | | | + + + [...] [facility] LABORATORY | [address] [facility] | [place] [address] | | | NATALEE WORTHINGTON | VILMA [...] | + + + + + | [facility] | [address] | [place] [address] | | | SERVICES, CORE | PARK [...] + + | [facility] | [address] | [place] [address] | | | ELIN, NATALEE | VILMA [...] | | | LABORATORY | | | QATARI | | | SERVICES, | | | [...] | + + + + + | [facility] | [address] | [place] [address] | | | SERVICES, CORE | VILMA [...] [facility] | [address] | [place] [address] | | | SERVICES, CORE | VILMA [...] + | [facility] | [address] | [place], [place] | | | CARDIOLOGY | [address] | [address] | | + + + + + [...] + + | [facility] | [address] | [place], [place] | | | CARDIOLOGY | [address] | [address] | | + + + + + [...] | | | LABORATORY | | | QATARI | | | SERVICES, | | | [...] | + + + + + | [facility] | [address] | [place] [address] | | | SERVICES, CORE | VILMA [...] [facility] | [address] | [place] [address] | | | SERVICES, CORE | [address] | | | + + + + + 12 LEAD ECG (11/27/2017 11:03 AM PDT) + + + + + + | Component | Value | Ref Range | Performed | Pathologist | | | | | At | Signature | + + + + + + | VENTRICULAR | 56 | bpm | [facility] | | [...] + + | [facility] | [address] | [place], [place] | | | CARDIOLOGY | [address] | [address] | | + + + + + [...] Note | + + | Service Account, Power Fingerprinting In Interface - 11/26/2017 12:36 PM PDT [...] + | [facility] - | [address] | [place] [address] | | | [place] | | | [...] + + | [facility] | [address] | [place] [address] | | | SERVICES, CORE | PARK [...] [facility] | [address] | [place] [address] | | | SERVICES, CORE | PARK [...] + + | [facility] | [address] | [place] [address] | | | SERVICES, CORE | PARK [...] | + + + + + | [facility] | [address] | [place] [address] | | | SERVICES, NATALEE | VILMA [...] | | | LABORATORY | | | QATARI | | | SERVICES, | | | [...] [facility] | [address] | [place] [address] | | | SERVICES, NATALEE | PARK [...] [facility] | [address] | [place] [address] | | | SERVICES, CORE | VILMA [...] + | [facility] | [address] | [place], [place] | | | CARDIOLOGY | [address] | [address] | | + + + + + [...] + + | [facility] | [address] | [place], [place] | | | CARDIOLOGY | [address] | [address] | | + + + + + [...] + | [facility] | [address] | [place], [place] | | | CARDIOLOGY | [address] | [address] | | + + + + + [facility] | [address] [facility] | [place], [place] | | | CARDIOLOGY | [address] | [address] | | + + + + + [...] | | | LABORATORY | | | QATARI | | | SERVICES, | | | [...] [facility] | [address] | [place] [address] | | | SERVICES, CORE | [address] | | | + + + + + MAGNESIUM, PLASMA (11/21/2017 4:17 AM PDT) + +-------+ + + + | Component | Value | Ref Range | Performed | Pathologist | | | | | At | Signature | + +-------+ + + + | MAGNESIUM,P | 2.1 | 1.6 - 2.6 mg/dL | [facility] | | | LASMA | | | [...] [facility] | [address] | [place] [address] | | | ELIN, NATALEE | VILMA [...] Note | + + | Service Account, Power Fingerprinting In Interface - 11/19/2017 11:26 AM PDT [...] + + | [facility] | [address] | [place], [place] | | | CARDIOLOGY | [address] | [address] | | + + + + + [...] + | [facility] | [address] | [place], [place] | | | CARDIOLOGY | [address] | [address] | | + + + + + [...] + + | [facility] | [address] | [place] [address] | | | SERVICES, CORE | PARK [...] + + | [facility] | [address] | [place] [address] | | | SERVICES, CORE | PARK [...] - | | | | | | [facility] | | + +-------+ + + + + + | Specimen | + + | Blood - Blood | | (substance) | + + + + + + + | Performing | Address | City/State/Zipcode | Phone Number | | Organization | | | | + + + + + | [facility] - | [address] | [place] [address] | | | [facility] | | | | + [...] [facility] | [address] | [place] [address] | | | SERVICES, CORE | PARK [...] + +---------+ + + + | JULIENI Brice CMNT | No Hemo | | [facility] [...] | + + + + + | [facility] | [address] | [place] [address] | | | SERVICES, CORE | VILMA [...] | | | LABORATORY | | | QATARI | | | SERVICES, | | | [...] | + + + + + | [facility] | [address] | [place] [address] | | | SERVICES, CORE | VILMA [...] [facility] | [address] | [place] [address] | | | SERVICES, CORE | [address] | | | + + + + + 12 LEAD ECG (11/17/2017 9:36 AM PDT) + + + + + + | Component | Value | Ref Range | Performed | Pathologist | | | | | At | Signature | + + + + + + | VENTRICULAR | 67 | bpm | [facility] | | [...] + | [facility] | [address] | [place], [place] | | | CARDIOLOGY | [address] | [address] | | + + + + + [...] + + | [facility] | [address] | [place], [place] | | | CARDIOLOGY | [address] | [address] | | + + + + + [...] + + | [facility] | [address] | [place] [address] | | | NATALEE WORTHINGTON | VILMA [...] OF | [address] | [place], [place] | | | CARDIOLOGY | [address] | [address] | | + + + + + [...] | | | LABORATORY | | | QATARI | | | SERVICES, | | | [...] [facility] | [address] | [place] [address] | | | ELIN, NATALEE | VILMA [...] | + + + + + | [facility] | [address] | [place] [address] | | | NATALEE WORTHINGTON | PARK [...] + | [facility] | [address] | [place], [place] | | | CARDIOLOGY | [address] | [address] | | + + + + + [...] [facility] | [address] | [place] [address] | | | ELIN, NATALEE | PARK [...] | | | LABORATORY | | | QATARI | | | SERVICES, | | | [...] | + + + + + | [facility] | [address] | [place] [address] | | | SERVICES, CORE | [address]ARK [...] REF URINE | 24.00 | hrs | [facility] - | | | TIME | | [...] + | [facility] - | [address] | [place] [address] | | | [place] | | | [...] Note | + + | Service Account, Power Fingerprinting In Interface - 11/12/2017 1:46 PM PDT [...] + | [facility] | [address] | [place], [place] | | | CARDIOLOGY | [address] | [address] | | + + + + + [...] now | | presented. Final signature: Mason Sancehz MD 11/12/2017 12:09 PM Preliminary: Patrick | [...] | + + + + + | [facility] | [address] | [place] [address] | | | SERVICES, CORE | VILMA [...] + | [facility] - | [address] | [place] [address] | | | [place] | | | [...] + | [facility] | [address] | [place], [place] | | | CARDIOLOGY | [address] | [address] | | + + + + + [...] + + | [facility] | [address] | [place] [address] | | | NATALEE WORTHINGTON | VILMA [...] + | [facility] - | [address] | [place] [address] | | | [facility] | | | | + [...] + + | [facility] | [address] | [place] [address] | | | SERVICES, CORE | PARK [...] + + | [facility] | [address] | [place] [address] | | | ELIN, NATALEE | VILMA [...] [facility] | [address] | [place] [address] | | | SERVICES, CORE | [address] [...] | | | LABORATORY | | | QATARI | | | SERVICES, | | | [...] [facility] | [address] | [place] [address] | | | SERVICES, CORE | [address] | | | + + + + + MAGNESIUM, PLASMA (11/11/2017 9:06 AM PDT) + +-------+ + + + | Component | Value | Ref Range | Performed | Pathologist | | | | | At | Signature | + +-------+ + + + | MAGNESIUM,P | 2.1 | 1.6 - 2.6 mg/dL | [facility] | | | LASMA | | | [...] + + | [facility] | [address] | [place] [address] | | | SERVICES, NATALEE | VILMA [...] [facility] | [address] | [place] [address] | | | SERVICES, CORE [...] | | | LABORATORY | | | QATARI | | | SERVICES, | | | [...] [facility] | [address] | [place] [address] | | | SERVICES, CORE | PARK [...] + | [facility] | [address] | [place], [place] | | | CARDIOLOGY | [address] | [address] | | + + + + + [...] [facility] | [address] | [place] [address] | | | SERVICES, CORE | VILMA [...] | | | LABORATORY | | | QATARI | | | SERVICES, | | | [...] | + + + + + | [facility] | [address] [facility] | [place] [address] | | | SERVICES, CORE | VILMA [...] + + | [facility] | [address] | [place] [address] | | | SERVICES, CORE | [address] [...] | | | LABORATORY | | | QATARI | | | SERVICES, | | | [...] | [facility] | [address] [facility] | [place] [address] | | | SERVICES, CORE | VILMA [...] Note | + + | Service Account, Power Fingerprinting In Interface - 11/08/2017 2:31 PM PDT [...] + + | [facility] | [address] | [place] [address] | | | SERVICES, CORE | PARK [...] | | | LABORATORY | | | QATARI | | | SERVICES, | | | [...] | + + + + + | [facility] | [address] | [place] [address] | | | NATALEE WORTHINGTON | VILMA [...] + | [facility] | [address] | [place], [place] | | | CARDIOLOGY | [address] | [address] | | + + + + + [...] + | [facility] | [address] | [place], [place] | | | CARDIOLOGY | [address] | [address] | | + + + + + [...] | | | LABORATORY | | | QATARI | | | SERVICES, | | | [...] the MDRD equation recommended by the | [facility] | | National Kidney Disease Education Program. [...] | + + + + + | [facility] | [address] | [place] [address] | | | SERVICES, CORE | VILMA [...] | + + + + + | [facility] | [address] | [place] [address] | | | SERVICES, CORE | VILMA [...] + + + + | PRODUCT | [id number] | | [facility] | | | UNIT [...] + + + + | EXPIRATION | [id number] | | [facility] | | | DATE [...] + + + + | BLOOD | [id number] | | [facility] | | | PRODUCT [...] | + + + + + | [facility] | [address] | [place] [address] | | | SERVICES, | [address] [...] + + + + | PRODUCT | [id number] | | [facility] | | | UNIT [...] + + + + | EXPIRATION | [id number] | | [facility] | | | DATE [...] + + + + | BLOOD | [id number] | | [facility] | | | PRODUCT [...] | + + + + + | [facility] | [address] | [place] [address] | | | SERVICES, | [address] [...] + + | [facility] | [address] | [place] [address] | | | NATALEE WORTHINGTON | VILMA [...] [facility] | [address] | [place] [address] | | | SERVICES, NATALEE | VILMA [...] | | | LABORATORY | | | QATARI | | | SERVICES, | | | [...] | + + + + + | [facility] | [address] | [place] [address] | | | SERVICES, CORE | [address] | | | + + + + + OPERATION RECORD (11/06/2017 12:27 AM PDT) + + | Procedure Note | + + | Magdiel Stock MD - 11/06/2017 12:27 AM PDT Date of Service: 11/05/2017 Attending | | Surgeon: Magdiel Stock MD Receiving Lead(s): Rg Aiken MD | | Preoperative Diagnoses: [...] him for reimplantation of synthetic cranioplasty after Rosie 5. | | The patient's scalp flap was [...] head was placed in a horseshoe head resident with his C-collar still | | attached [...] the incision down to the cranium. Once [place] | | skull was reached circumferentially around the prior incision, a #1 Manns Choice was used | | to subperiosteally dissect [...] Nunez, | | [facility] [id number] [place], [place] | | [id number] Orina, MDJB/MODLDD: 11/05/2017 20:38:01DT: 11/06/2017 | | 00:27:33Job #: [id number] | |HATTIE/TAHIRL | | | | | | /[id number] | + + CT HEAD WO CONTRAST [...] Note | + + | Service Account, [employer] Res In Interface - 11/05/2017 8:20 PM [...] Surgeon: Magdiel | | | MD Dayami Receiving Lead: Rg Aiken MD Pre-op Diagnosis: | | [...] PGY-4 Neurological Surgery Pager | | | [phone] | | + + + CAPILLARY BLOOD [...] [facility] | [address] | [place], [place] | | | [place] [facility] CARE | [facility] | [address] | | | TESTS | | | [...] [facility] | [address] | [place], [place] | | | GLORIA GENAO OF CARE | [address] | [address] | | | TESTS | | | | + + + + + [facility] VENOUS DUPLEX LOWER EXTREMITY [...] Note | + + | Service Account, Power Fingerprinting In Interface - 11/05/2017 11:31 AM PDT [...] + + | [facility] | [address] | [place] [address] | | | SERVICES, NATALEE | VILMA [...] | + + + + + | [facility] | [address] [facility] | [place] [address] | | | SERVICES, CORE | [address] [...] | | | LABORATORY | | | QATARI | | | SERVICES, | | | [...] + + | [facility] | [address] | [place] [address] | | | SERVICES, CORE | [address] [...] valves (2.5 - 3.5) INR APTT | [facility], CORE | | Therapeutic Range: (75 - 120) sec | | | Heparin levels of 0.35 - 0.7 U/mL | | + + + + + + + + | Performing | Address | City/State/Zipcode | Phone Number | | Organization | | | | + + + + + | [facility] | [address] | [place] [address] | | | ELIN, NATALEE | [address]ARK [...] + + + + | PRODUCT | [id number] | | [facility] | | | UNIT [...] + + + + | EXPIRATION | [id number] | | [facility] | | | DATE [...] + + + + | BLOOD | [id number] | | [facility] | | | PRODUCT [...] | + + + + + | [facility] | [address] | [place] [address] | | | SERVICES, | [address] [...] + + + + | PRODUCT | [id number] | | [facility] | | | UNIT [...] + + + + | EXPIRATION | [id number] | | [facility] | | | DATE [...] + + + + | BLOOD | [id number] | | [facility] | | | PRODUCT [...] | + + + + + | [facility] | [address] | [place] [address] | | | SERVICES, | [address] [...] + + | [facility] | [address] | [place] [address] | | | NATALEE WORTHINGTON | VILMA [...] + + | [facility] | [address] | [place] [address] | | | SERVICES, | [address] [...] SYSTEM LAB[facility]ORY | [address] | [place] [address] | | | SERVICES, | [address] [...] | + + + + + | [facility] | [address] | [place] [address] | | | SERVICES, CORE | VILMA [...] + | [facility] | [address] | [place], [place] | | | CARDIOLOGY | [address] | [address] | | + + + + + [...] | + + + + + | [facility] | [address] | [place] [address] | | | SERVICES, NATALEE | VILMA [...] | + + + + + | [facility] | [address] | [place] [address] | | | SERVICES, CORE | [address] [...] + | [facility] - | [address] | [place] [address] | | | [place] | | | [...] [facility] | [address] | [place] [address] | | | SERVICES, CORE | [address] [...] [facility] | [address] | [place] [address] | | | SERVICES, CORE | [address] [...] | | | LABORATORY | | | QATARI | | | SERVICES, | | | [...] [facility] | [address] [facility] | [place] [address] | | | SERVICES, CORE | VILMA [...] 2.6 mg/dL | [facility] | | | [facility] | | | LABORATORY | | | | | | LEIN, | | | | [...] [facility] | [address] | [place] [address] | | | NATALEE WORTHINGTON | VILMA [...] [facility] | [address] | [place] [address] | | | NATALEE WORTHINGTON | VILMA [...] | | | LABORATORY | | | QATARI | | | SERVICES, | | | [...] [facility] | [address] | [place] [address] | | | SERVICES, NATALEE | [address]ARK [...] + + | [facility] | [address] | [place] [address] | | | SERVICES, CORE | [address] [...] | | | LABORATORY | | | QATARI | | | SERVICES, | | | [...] [facility] | [address] | [place] [address] | | | ELIN, CORE | VILMA [...] + | [facility] | [address] [facility] [address] | [place], [place] | | | CARDIOLOGY | [address] | [address] | | + + + + + [...] [facility] | [address] | [place] [address] | | | SERVICES, CORE | [address] [...] | | | LABORATORY | | | QATARI | | | SERVICES, | | | [...] [facility] | [address] | [place] [address] | | | ELIN, CORE | [address] [...] OF | [address] | [place], [place] | | | CARDIOLOGY | [facility] | [address] | | + + + + + [...] | | | LABORATORY | | | QATARI | | | SERVICES, | | | [...] [facility] | [address] | [place] [address] | | | ELIN, CORE | VILMA [...] [facility] | [address] | [place] [address] | | | ELIN, NATALEE | VILMA [...] [facility] | [address] | [place], [place] | | | [facility] GE[facility] OF CARE | [address] | [address] | | | TESTS | | | [...] [facility] | [address] | [place] [address] | | | SERVICES, CORE | VILMA [...] | | | LABORATORY | | | QATARI | | | SERVICES, | | | [...] | + + + + + | [facility] | [address] | [place] [address] | | | SERVICES, CORE | VILMA [...] | + + | Service Account, Kostas Content Circles In Interface - 10/29/2017 12:13 PM PDT [...] [facility] | [address] | [place], [place] | | | GL[place] GE[place] OF CARE | [address] | [address] | | | TESTS | | | [...] + + | [facility] | [address] | [place] [address] | | | SERVICES, CORE | [address] [...] | | | LABORATORY | | | QATARI | | | SERVICES, | | | [...] the MDRD equation recommended by the | [facility] | | National Kidney Disease Education Program. [...] [facility] | [address] [facility] | [place] [address] | | | ELIN, NATALEE | VILMA [...] | [facility] | [address] | [place], [place] | | | [place] | [address] | [address] | | | TESTS | | | | + + + + + 12 LEAD ECG (10/28/2017 2:18 PM PDT) + + + + + + | Component | Value | Ref Range | Performed | Pathologist | | | | | At | Signature | + + + + + + | VENTRICULAR | 74 | bpm | [facility] | | [...] + | [facility] | [address] | [place], [place] | | | CARDIOLOGY | [address] | [address] | | + + + + + [...] - [facility] | [address] | [place], [place] | | | [facility] GE[facility]O OF CARE | [facility] | [address] | | | TESTS | | | [...] [facility] | [address] | [place], [place] | | | [place] | [address] | [address] | | | TESTS | | | [...] | + + + + + | [facility] | [address] | [place] [address] | | | SERVICES, CORE | VILMA [...] + | [facility] - | [address] | [place] [address] | | | [place] | | | [...] | + + + + + | [facility] | [address] [facility] | [place] [address] | | | SERVICES, CORE | VILMA [...] + + | [facility] | [address] | [place] [address] | | | SERVICES, CORE | PARK [...] [facility] | [address] | [place] [address] | | | SERVICES, CORE | [address]ARK [...] | | | LABORATORY | | | QATARI | | | SERVICES, | | | [...] | + + + + + | [facility] | [address] | [place] [address] | | | SERVICES, CORE | PARK [...] [facility] | [address] | [place] [address] | | | SERVICES, CORE | VILMA [...] [facility] | [address] | [place], [place] | | | [place] OF CARE | [address] | [address] | | | TESTS | | | [...] [facility] | [address] | [place], [place] | | | [place] CARE | [address] | [address] | | | TESTS | | | [...] At | + + + | EXAM: OR CHEST PICC LINE CHECK HISTORY: picc done [...] Interface - 10/27/2017 6:29 PM PDT EXAM: OR CHEST | | PICC LINE CHECK HISTORY: [...] vein. Catheter lot number: | | | [id number] with a length of 55 cm was [...] [facility] | [address] | [place] | | | GLORIA GENAO OF [facility] | [address] | [address] | | | TESTS | | | [...] + | [facility] | [address] | [place], [place] | | | CARDIOLOGY | [address] | [address] | | + + + + + [...] [facility] | [address] | [place], [place] | | | [facility] OF [facility] | [address] | [address] | | | TESTS | | | [...] [facility] | [address] | [place] [address] | | | SERVICES, CORE | [address] [...] | | | LABORATORY | | | QATARI | | | SERVICES, | | | [...] [facility] | [address] [facility] | [place] [address] | | | ELIN, CORE | VILMA [...] MARQUAM | [address] | [place], [place] | | | [facility] | [address] | [address] | | | TESTS | | | [...] + + + | SELENA PICKETT | [address] | [place], [place] | | | [facility] | [address] | [address] | | | TESTS | | | [...] MARQUAM | [address] | [place], [place] | | | [facility] | [address] | [address] | | | TESTS | | | [...] | | | LABORATORY | | | NTAALEE WORTHINGTON | + + + + + + + + | Performing | Address | City/State/Zipcode | Phone Number | | Organization | | | | + + + + + | [facility] | [address] | [place] [address] | | | SERVICES, NATALEE | PARK [...] | | | LABORATORY | | | QATARI | | | SERVICES, | | | [...] + + | [facility] | [address] | [place] [address] | | | SERVICES, CORE | PARK [...] MARQUAM | [address] | [place], [place] | | | GLORIA GENAO OF CARE | [address] | [address] | | | TESTS | | | [...] | | | LABORATORY | | | QATARI | | | SERVICES, | | | [...] | + + + + + | [facility] | [address] | [place] [address] | | | SERVICES, NATALEE | VILMA [...] MARKHRISAM | [address] | [place], [place] | | | [facility] | [address] | [address] | | | TESTS | | | [...] DEPT OF | [address] | [place], [place] | | | CARDIOLOGY | [address] | [address] | | + + + + + [...] PICKETT | [address] | [place], [place] | | | [facility] | [address] | [address] | | | TESTS | | | [...] + | SELENA MORALEZ OF | [address] | [place], [place] | | | CARDIOLOGY | [facility] | [address] | | + + + + + [...] + + | [facility] | [address] | [place] [address] | | | SERVICES, CORE | PARK [...] + | [facility] | [address] | [place] [address] | | | [place] | | | [...] + + | [facility] | [address] | [place] [address] | | | SERVICES, CORE | [address] | | | + + + + + ALT, PLASMA (10/24/2017 4:45 PM PDT) + +-------+ + + + | Component | Value | Ref Range | Performed | Pathologist | | | | | At | Signature | + +-------+ + + + | ALT (SGPT) | 20 | <=60 U/L | [facility] | | | | | | LABORATORY [...] + + | [facility] | [address] | [place] [address] | | | SERVICES, CORE | PARK [...] + + | [facility] | [address] | [place] [address] | | | SERVICES, CORE | PARK [...] | + + + + + | [facility] | [address] | [place] [address] | | | SERVICES, CORE | VILMA [...] + + | [facility] | [address] | [place] [address] | | | SERVICES, CORE | PARK [...] | + + + + + | [facility] | [address] | [place] [address] | | | SERVICES, CORE | VILMA [...] + + | [facility] | [address] | [place] [address] | | | SERVICES, CORE | PARK [...] + + | [facility] | [address] [facility] | [place] [address] | | | SERVICES, CORE [...] SELENA MCNAIR | [address] | [place] [address] | | | NATALEE [place] | PARK [...] | + + + + + | [facility] | [address] [address] | [place] [address] | | | SERVICES, CORE | PARK [...] | | | LABORATORY | | | QATARI | | | SERVICES, | | | [...] | + + + + + | [facility] | [address] | [place] [address] | | | NATALEE WORTHINGTON | [address] | | | + + + + + PICC LINE (10/24/2017 4:01 PM PDT) + + + | Narrative | Performed At | + + + Prabhakar Farrell RN 10/24/2017 4:05 PM PICC LINE Performed | | | by: FARHAN FARRELL Authorized by: CHAZ MUNOZ PICC/Midline | | | Insertion Procedure Note Indications:TPN [...] | area Basilic vein. Catheter lot number: [id number] with a length of 55 | | [...] At | + + + | EXAM: OR CHEST 1 VIEW HISTORY: PICC placed-pt ready. [...] Interface - 10/24/2017 3:43 PM PDT EXAM: OR CHEST 1 | | VIEW HISTORY: PICC [...] [facility] | [address] | [place], [place] | | | GLORIA GENAO OF GM | [address] | [address] | | | TESTS | | | [...] | | Surgical Critical Care, PGY7 Pager: [phone] | | + + + CAPILLARY BLOOD [...] [facility] | [address] | [place], [place] | | | GLORIA GENAO OF CARE | [address] | [address] | | | TESTS | | | [...] - [facility] | [address] | [place], [place] | | | [place] OF CARE | [address] | [address] | | | TESTS | | | [...] | | | LABORATORY | | | QATARI | | | SERVICES, | | | [...] [facility] | [address] | [place] [address] | | | SERVICES, CORE | [address] | | | + + + + + MAGNESIUM, PLASMA (10/24/2017 5:08 AM PDT) + +-------+ + + + | Component | Value | Ref Range | Performed | Pathologist | | | | | At | Signature | + +-------+ + + + | MAGNESIUM,P | 1.7 | 1.6 - 2.6 mg/dL | [facility] | | | LASMA | | | [...] + + | [facility] | [address] | [place] [address] | | | SERVICES, NATALEE | [address] [...] [facility] | [address] | [place], [place] | | | GLORIA GENAO OF [place] | [facility] | [address] | | | TESTS | | | [...] + + | [facility] | [address] | [place] [address] | | | SERVICES, CORE | PARK [...] | | | LABORATORY | | | QATARI | | | SERVICES, | | | [...] | + + + + + | [facility] | [address] | [place] [address] | | | NATALEE WORTHINGTON | [address] [...] OF | [address] | [place], [place] | | | CARDIOLOGY | [address] | [address] | | + + + + + IR GASTROSTOMY TUBE EXCHANGE (10/22/2017 2:42 PM PDT) + + | Specimen | + + | | + + + + + | Narrative | Performed At | + + + | Procedure: Gastrostomy tube exchange Primary attending | [facility] | | tile grader: Shade Goodwin M.D. Preoperative diagnosis: | RADIOLOGY VOICE | | Malfunctioning Gastrostomy tube Postoperative diagnosis: Same | RECOGNITION | | Operations: Operation 1. Removal of existing Gastrostomy tube | | | over a guide wire Operation 2. Placement of 24 Danish GABRIEL | | | gastrostomy over guide [...] a stiff glide wire the new 24 Danish gastrostomy tube was | | | inserted. [...] Procedure: | | Gastrostomy tube exchangePrimary attending tile grader: Shade Goodwin | | BrynPreoperative diagnosis: Malfunctioning Gastrostomy tubePostoperative diagnosis: | | SameOperations:Operation 1. Removal of existing Gastrostomy tube over a guide | | wireOperation 2. Placement of 24 Danish GABRIEL gastrostomy over guide wireNo sedation was [...] glide wire the | | new 24 Danish gastrostomy tube was inserted. The position of [...] stiff g lide wire the new 24 Danish | |gastrostomy tube was inserted. The position [...] + | [facility] | [address] [facility] | [place], [place] | | | CARDIOLOGY | [address] | [address] | | + + + + + [...] Service Account, Kostas Res In Interface - 10/22/2017 8:06 AM [...] | + + + + + | [facility] | [address] | [place] [address] | | | NATALEE WORTHINGTON | [address] [...] | | | LABORATORY | | | QATARI | | | SERVICES, | | | [...] | + + + + + | [facility] | [address] | [place] [address] | | | SERVICES, NATALEE | V[address] [...] + | [facility] | [address] | [place], [place] | | | CARDIOLOGY | [address] | [address] | | + + + + + [...] | | | LABORATORY | | | QATARI | | | SERVICES, | | | [...] + + | [facility] | [address] [facility] | [place] [address] | | | SERVICES, NATALEE | [address] [...] | + + + + + | [facility] | [address] | [place] [address] | | | SERVICES, CORE | PARK [...] + | [facility] | [address] | [place], [place] | | | CARDIOLOGY | [address] | [address] | | + + + + + [...] | + + + + + | [facility] | [address] | [place] [address] | | | NATALEE WORTHINGTON | PARK [...] | | | LABORATORY | | | QATARI | | | SERVICES, | | | [...] + + | [facility] | [address] | [place] [address] | | | SERVICES, CORE | PARK [...] DEPT OF | [address] | [place], [place] | | | CARDIOLOGY | [address] | [address] | | + + + + + [...] | | | LABORATORY | | | QATARI | | | SERVICES, | | | [...] | + + + + + | [facility] | [address] | [place] [address] | | | SERVICES, CORE | PARK [...] | + + + + + | [facility] | [address] | [place] [address] | | | SERVICES, CORE | [address] [...] + | [facility] | [address] [facility] | [place], [place] | | | CARDIOLOGY | [address] | [address] | | + + + + + [...] | | | LABORATORY | | | QATARI | | | SERVICES, | | | [...] + + | [facility] | [address] [facility] | [place] [address] | | | SERVICES, CORE | P[address] [...] [facility] | [address] [facility] | [place] [address] | | | SERVICES, NATALEE | [address] [...] Note | + + | Service Account, Power Fingerprinting In Interface - 10/15/2017 3:58 PM PDT [...] DEPT OF | [address] | [place], [place] | | | CARDIOLOGY | [address] | [address] | | + + + + + [...] [facility] | [address] | [place], [place] | | | GLORIA GENAO OF GM | [address] | [address] | | | TESTS | | | [...] + + | [facility] | [address] | [place] [address] | | | NATALEE WORTHINGTON | [address] [...] [facility] | [address] | [place], [place] | | | [place] OF CARE | [address] | [address] | | | TESTS | | | [...] + + | [facility] | [address] | [place], [place] | | | CARDIOLOGY | [address] | [address] | | + + + + + [...] + + | [facility] | [address] | [place] [address] | | | SERVICES, CORE | PARK [...] | | | LABORATORY | | | QATARI | | | SERVICES, | | | [...] [facility] | [address] | [place] [address] | | | NATALEE WORTHINGTON | [address] [...] [facility] | [address] | [place] [address] | | | SERVICES, NATALEE | [address] [...] [facility] | [address] | [place], [place] | | | GLORIA GENAO OF CARE | [facility] | [address] | | | TESTS | | | [...] - [facility] | [address] | [place], [place] | | | [place] OF CARE | [address] | [address] | | | TESTS | | | [...] [facility] | [address] | [place] [address] | | | NATALEE WORTHINGTON | [address] [...] | | | LABORATORY | | | QATARI | | | SERVICES, | | | [...] | + + + + + | [facility] | [address] | [place] [address] | | | SERVICES, CORE | [address] | | | + + + + + OPERATION RECORD (10/12/2017 8:50 PM PDT) + + | Procedure Note | + + | Pilar Cotto MD - 10/12/2017 8:50 PM PDT Date of Service: 10/12/2017 | | Attending Surgeon: Chaz Muonz MD Receiving Lead(s): Randell Dixon M.D., | | fellow. George [...] saline. We then | | placed a 19-Danish drain deep into the abscess cavity, tracking [...] 10/12/2017 19:50:06DT: 10/12/2017 20:50:54Job #: | | [id number] | + + X-RAY PORTABLE CHEST 1 VIEW (10/12/2017 7:50 PM PDT) + + | Specimen | + + | | + + + + + | Narrative | Performed At | + + + | EXAM: OR CHEST 1 VIEW HISTORY: Evaluate endotracheal tube [...] Interface - 10/13/2017 9:04 AM PDT EXAM: OR CHEST 1 | | VIEW HISTORY: Evaluate [...] Performed At | + + + | Pilra Cotto MD 10/12/2017 7:35 PM BRIEF OPERATIVE | | | NOTE Procedure Date: 10/12/17 Author: Caron Cotto MD R2 | | | Attending Physician: Chaz Munoz MD Assistants: Randell Dixon MD | | | fellow George Noriega MD R2 Carno Cotto MD R2 | | | Preoperative [...] + + + | [facility] | [address] | [place], [place] | | | [place] [facility] | [address] | [address] | | | TESTS | | | [...] presented. | | | |Final signature: Mason Sancehz MD 10/12/2017 5:04 PM | |Preliminary: Dae [...] [facility] | [address] | [place] [address] | | | SERVICES, CORE | PARK [...] | | | LABORATORY | | | QATARI | | | SERVICES, | | | [...] the MDRD equation recommended by the | [facility] | | National Kidney Disease Education Program. [...] + + | [facility] | [address] | [place] [address] | | | SERVICES, CORE | P[address] [...] [facility] | [address] | [place] [address] | | | NATALEE WORTHINGTON | [address] [...] + | [facility] | [address] | [place], [place] | | | CARDIOLOGY | [address] | [address] | | + + + + + [...] + | [facility] | [address] | [place], [place] | | | CARDIOLOGY | [facility] | [address] | | + + + + + [...] + + | [facility] | [address] | [place] [address] | | | ELIN, NATALEE | PARK [...] + + | [facility] | [address] | [place] [address] | | | SERVICES, CORE | PARK [...] | | | LABORATORY | | | QATARI | | | SERVICES, | | | [...] [facility] | [address] | [place] [address] | | | ELIN, NATALEE | [address] | | | + + + + + PROCEDURE NOTE (10/10/2017 10:00 PM PDT) + + + | Narrative | Performed At | + + + | Darius Link MD 10/12/2017 11:11 AM OPERATIVE REPORT | | | DATE OF OPERATION: 10/10/2017 ATTENDING SURGEON: 1. Dr. Munoz | | | RAKER BUFFING WHEEL: 1. Darius Link MD INDICATIONS: Dysphagia | | | and need for long-term nutrition access PREOPERATIVE DIAGNOSIS: | | | 1.Dysphagia and need for intermediate teacher nutrition access | | | POSTOPERATIVE DIAGNOSIS: [...] Dictation to | | | follow. Arben Hernandez, [id number] Chief Resident | | | Neurosurgery | [...] [facility] | [address] | [place] [address] | | | SERVICES, CORE | [address] [...] | | | LABORATORY | | | QATARI | | | SERVICES, | | | [...] [facility] | [address] | [place] [address] | | | SERVICES, CORE | PARK [...] + + | [facility] | [address] | [place] [address] | | | SERVICES, NATALEE | [address] | | | + + + + + OPERATION RECORD (10/10/2017 12:40 PM PDT) + + | Procedure Note | + + | Magdiel Stock MD - 10/10/2017 12:40 PM PDT Date of Service: 10/10/2017 Attending | | Surgeon: Magdiel Stock MD Receiving Lead(s): Cecilia Hernandez, | | . Preoperative Diagnoses: [...] the note for this encounter.Sonal Nunez MDOHSU [id number] [facility] | | [place] [phone] Orina, MDFAH/MODLDD: | | 10/10/2017 11:52:15DT: 10/10/2017 12:40:41Job #: [id number] | | | | | |I was present for the critical portions of the procedure as described in the note for this encounter. | | | |Magdiel Stock MD | | | |Magdiel Stock MD | |[address] | |[address] [facility] | |[facility] | |[place] [address] | |[phone] | | | | | |Magdiel Stock MD | |FAH/MODL | | | | | | /[id number] | + + X-RAY ABDOMEN 1 VIEW [...] + | [facility] - | [address] | [place] [address] | | | [place] | | | | + + + [...] | + + + + + | [facility] - | [address] | [place] [address] | | | [place] | | | | + + + [...] Gram Stain: No squamous epithelial cells | [place] | | Many polymorphonuclear cells No organisms seen | | + + + + + + + + | Performing | Address | City/State/Zipcode | Phone Number | | Organization | | | | + + + + + | [facility] - | [address] | [place] [address] | | | [place] | | | | + + + [...] + | [facility] - | [address] | [place] [address] | | | [place] | | | | + + + [...] + | [facility] - | [address] | [place] [address] | | | [place] | | | [...] + | [facility] - | [address] | [place] [address] | | | [place] | | | [...] + | [facility] - | [address] | [place] [address] | | | [place] | | | [...] Gram Stain: No squamous epithelial cells | [place] | | Few polymorphonuclear cells No organisms seen | | + + + + + + + + | Performing | Address | City/State/Zipcode | Phone Number | | Organization | | | | + + + + + | [facility] | [address] | [place] [address] | | | [facility] | | [...] | | cells No organisms seen | [facility] | + + + + + + + + | Performing | Address | City/State/Zipcode | Phone Number | | Organization | | | | + + + + + | [facility] - | [address] | [place] [address] | | | [place] | | | [...] | + + + + + | [facility] - | [address] | [place] [address] | | | [place] | | | | + + + [...] + | [facility] - | [address] | [place] [address] | | | [facility] | | [...] + | [facility] - | [address] | [place] [address] | | | [place] | | | [...] + | [facility] - | [address] | [place] [address] | | | [place] | | | [...] Gram Stain: No squamous epithelial cells | [facility] | | Moderate polymorphonuclear cells No organisms seen | | + + + + + + + + | Performing | Address | City/State/Zipcode | Phone Number | | Organization | | | | + + + + + | [facility] | [address] | [place] [address] | | | [place] | | | [...] + | [facility] | [address] | [place] [address] | | | [place] | | | [...] + | [facility] | [address] | [place] [address] | | | [place] | | | [...] + | [facility] | [address] | [place] [address] | | | [facility] | | [...] + | [facility] - | [address] | [place] [address] | | | [place] | | | | + + + [...] Note | + + | Service Account, HeyWire Businessant Res In Interface - 10/10/2017 8:23 AM [...] | + + + + + | [facility] | [address] | [place] [address] | | | SERVICES, CORE | [address] [...] + + | [facility] | [address] | [place] [address] | | | NATALEE WORTHINGTON | [address] [...] [facility] | [address] [facility] | [place] [address] | | | NATALEE WORTHINGTON | [address] [...] | | | LABORATORY | | | QATARI | | | SERVICES, | | | [...] | + + + + + | [facility] | [address] | [place] [address] | | | SERVICES, CORE | PARK [...] + | [facility] | [address] | [place], [place] | | | CARDIOLOGY | [address] | [address] | | + + + + + [...] + + + + | PRODUCT | [id number] | | [facility] | | | UNIT [...] + + + + | EXPIRATION | [id number] | | [facility] | | | DATE [...] + + + + | BLOOD | [id number] | | [facility] | | | PRODUCT [...] + + | [facility] | [address] | [place] [address] | | | SERVICES, | [address] [...] + + + + | PRODUCT | [id number] | | [facility] | | | UNIT [...] + + + + | EXPIRATION | [id number] | | [facility] | | | DATE [...] + + + + | BLOOD | [id number] | | [facility] | | | PRODUCT [...] + + | [facility] | [address] | [place] [address] | | | SERVICES, | [address] [...] | + + + + + | [facility] | [address] | [place] [address] | | | SERVICES, | [address] [...] + + | [facility] | [address] | [place] [address] | | | SERVICES, | [address] [...] | + + + + + | [facility] | [address] | [place] [address] | | | SERVICES, | [address] [...] [facility] | [address] | [place] [address] | | | NATALEE WORTHINGTON | V[address]MA [...] DEPT OF | [address] | [place], [place] | | | CARDIOLOGY | [address] | [address] | | + + + + + [...] - [facility] | [address] | [place], [place] | | | [place] OF CARE | [address] | [address] | | | TESTS | | | [...] [facility] | [address] [facility] | [place] [address] | | | NATALEE WORTHINGTON | [address] [...] | + + + + + | [facility] | [address] [facility] | [place] [address] | | | SERVICES, CORE | [address] [...] | | | LABORATORY | | | QATARI | | | SERVICES, | | | [...] [facility] | [address] | [place] [address] | | | SERVICES, CORE | VILMA [...] [facility] | [address] | [place], [place] | | | GL[facility]IA GENAO OF CARE | [address] | [address] | | | TESTS | | | [...] [facility] | [address] | [place], [place] | | | [facility] GE[place] OF CARE | [address] | [address] | | | TESTS | | | [...] [facility] | [address] | [place], [place] | | | [facility] GE[place] OF CARE | [facility] | [address] | | | TESTS | | | [...] [facility] | [address] | [place], [place] | | | [place] GE[place] OF CARE | [address] | [address] | | | TESTS | | | [...] [facility] | [address] | [place], [place] | | | [place] OF CARE | [address] | [address] | | | TESTS | | | [...] [facility] | [address] | [place] [address] | | | ELIN, CORE | [address]ARK [...] + + | [facility] | [address] | [place] [address] | | | SERVICES, CORE | [address]ARK [...] | | | LABORATORY | | | QATARI | | | SERVICES, | | | [...] | + + + + + | [facility] | [address] | [place] [address] | | | NATALEE WORTHINGTON | [address] [...] [facility] | [address] | [place], [place] | | | GLORIA GENAO OF GM | [facility] | [address] | | | TESTS | | | [...] [facility] | [address] | [place], [place] | | | GL[place] GENAO OF CARE | [address] | [address] | | | TESTS | | | [...] + | [facility] | [address] | [place], [place] | | | CARDIOLOGY | [address] | [address] | | + + + + + [...] [facility] | [address] | [place], [place] | | | [place] OF CARE | [address] | [address] | | | TESTS | | | [...] [facility] | [address] | [place] [address] | | | SERVICES, CORE | PARK [...] + + | [facility] | [address] | [place] [address] | | | SERVICES, CORE | [address]ARK [...] | | | LABORATORY | | | QATARI | | | SERVICES, | | | [...] | + + + + + | [facility] | [address] | [place] [address] | | | NATALEE WORTHINGTON | [address] [...] | | POC | | | GLORIA EGNAO | | | | | | OF [...] [facility] | [address] | [place], [place] | | | [place] OF CARE | [address] | [address] | | | TESTS | | | [...] [facility] | [address] | [place], [place] | | | [facility] GE[place] OF CARE | [address] | [address] | | | TESTS | | | [...] [facility] | [address] | [place], [place] | | | GL[place] GE[place] OF CARE | [address] | [address] | | | TESTS | | | [...] [facility] | [address] | [place], [place] | | | GL[facility]IA GENAO OF [facility] | [address] | [address] | | | TESTS | | | [...] + | [facility] | [address] [facility] | [place], [place] | | | CARDIOLOGY | [address] | [address] | | + + + + + [...] + + | [facility] | [address] | [place] [address] | | | NATALEE WORTHINGTON | [address] [...] [facility] | [address] | [place] [address] | | | NATALEE WORTHINGTON | PARK [...] | | | LABORATORY | | | QATARI | | | SERVICES, | | | [...] | + + + + + | [facility] | [address] | [place] [address] | | | SERVICES, CORE | PARK [...] [facility] | [address] | [place], [place] | | | GL[facility]IA GE[place]O OF CARE | [address] | [address] | | | TESTS | | | [...] [facility] | [address] | [place], [place] | | | GLORIA GENAO OF CARE | [address] | [address] | | | TESTS | | | [...] [facility] | [address] | [place], [place] | | | [place] OF CARE | [address] | [address] | | | TESTS | | | [...] [facility] | [address] | [place], [place] | | | GLORIA GENAO OF CARE | [address] | [address] | | | TESTS | | | [...] [facility] | [address] | [place], [place] | | | [place] OF CARE | [facility] | [address] | | | TESTS | | | [...] | + + + + + | [facility] | [address] [facility] | [place] [address] | | | SERVICES, CORE | PARK [...] [facility] | [address] | [place] [address] | | | SERVICES, CORE | PARK [...] | | | LABORATORY | | | QATARI | | | SERVICES, | | | [...] [facility] | [address] | [place] [address] | | | NATALEE WORTHINGTON | VILMA [...] [facility] | [address] | [place], [place] | | | [place] OF CARE | [address] | [address] | | | TESTS | | | [...] [facility] | [address] | [place], [place] | | | GLORIA GENAO OF [employer] | [facility] | [address] | | | TESTS | | | [...] [facility] | [address] | [place] [address] | | | SERVICES, NATALEE | VILMA [...] by | | | | | | [employer],[address] | | | | | | Rogelio Pickard, [facility] [place], [place] | | | | | | [address] | | | | | | [phone].[employer]. | | | | | | Gui [...] [facility] | [address] | [place], [place] | | | [facility] | | [address] | | + + + + + [...] | + + + + + | [facility] | [address] | [place] [address] | | | SERVICES, CORE | VILMA [...] | + + + + + | [facility] | [address] | [place] [address] | | | SERVICES, CORE | VILMA [...] modified from | [facility] | | original valuation consultant's approved specifications. The performance | LABORATORY | | of the COMPUTATIONAL SCIENTIST HIV Combo test, with or without confirmation, [...] | + + + + + | [facility] | [address] [facility] | [place] [address] | | | SERVICES, SPECIAL | VILMA [...] [facility] | [address] | [place], [place] | | | GLORIA GENAO OF CARE | [facility] | [address] | | | TESTS | | | [...] [facility] | [address] | [place], [place] | | | GLORIA GENAO OF [facility] | [address] | [address] | | | TESTS | | | [...] | + + + + + | [facility] | [address] | [place] [address] | | | NATALEE WORTHINGTON | VILMA [...] | + + + + + | [facility] | [address] | [place] [address] | | | SERVICES, CORE | PARK [...] | | | LABORATORY | | | QATARI | | | SERVICES, | | | [...] [facility] | [address] | [place] [address] | | | SERVICES, CORE | VILMA [...] [facility] | [address] | [place], [place] | | | GLORIA GENAO OF GM | [address] | [address] | | | TESTS | | | [...] + | [facility] | [address] | [place], [place] | | | GLORIA GENAO OF CARE | [address] | [address] | | | TESTS | | | [...] + | [facility] | [address] | [place], [place] | | | CARDIOLOGY | [address] | [address] | | + + + + + [...] At | + + + | EXAM: [place] CHEST 1 VIEW HISTORY: Evaluate PICC placement [...] Note | + + | Service Account, COSMIC COLOR Res In Interface - 10/02/2017 2:07 PM PDT EXAM: OR CHEST 1 | | VIEW HISTORY: Evaluate [...] [facility] | [address] | [place], [place] | | | [place] [facility] | [address] | [id number] | | | TESTS | | | | + + + + + X-RAY PORTABLE CHEST 1 VIEW (10/02/2017 8:56 AM PDT) + + | Specimen | + + | | + + + + + | Narrative | Performed At | + + + | EXAM: OR CHEST 1 VIEW HISTORY: new leukocytosis, eval [...] Interface - 10/02/2017 10:27 AM PDT EXAM: OR CHEST 1 | | VIEW HISTORY: new [...] [facility] | [address] | [place], [place] | | | GLORIA GENAO OF GM | [facility] | [address] | | | TESTS | | | [...] [facility] | [address] | [place] [address] | | | SERVICES, CORE | [address] | | | + + + + + MAGNESIUM, PLASMA (10/02/2017 5:12 AM PDT) + +-------+ + + + | Component | Value | Ref Range | Performed | Pathologist | | | | | At | Signature | + +-------+ + + + | MAGNESIUM,P | 2.1 | 1.6 - 2.6 mg/dL | [facility] | | | L[facility] | | | [...] + + | [facility] | [address] | [place] [address] | | | NATALEE WORTHINGTON | VILMA [...] | | | LABORATORY | | | QATARI | | | SERVICES, | | | [...] | + + + + + | [facility] | [address] | [place] [address] | | | SERVICES, CORE | VILMA [...] | [facility] | [address] | [place], [place] | | | [facility] | [address] | [address] | | | TESTS | | | [...] [facility] | [address] | [place], [place] | | | [facility] | [address] | [address] | | | TESTS | | | [...] [facility] | [address] | [place], [place] | | | [facility] | [address] | [address] | | | TESTS | | | [...] Note | + + | Service Account, Power Fingerprinting In Interface - 10/01/2017 11:34 AM PDT [...] [facility] | [address] | [place], [place] | | | GLORIA GENAO OF [employer] | [address] | [address] | | | TESTS | | | [...] [facility] | [address] | [place] [address] | | | SERVICES, CORE | [address] | | | + + + + + MAGNESIUM, PLASMA (10/01/2017 5:25 AM PDT) + +-------+ + + + | Component | Value | Ref Range | Performed | Pathologist | | | | | At | Signature | + +-------+ + + + | MAGNESIUM,P | 2.0 | 1.6 - 2.6 mg/dL | [facility] | | | LASMA | | | [...] + + | [facility] | [address] | [place] [address] | | | SERVICES, NATALEE | VILMA [...] | | | LABORATORY | | | QATARI | | | SERVICES, | | | [...] | + + + + + | [facility] | [address] [facility] | [place] [address] | | | SERVICES, NATALEE | VILMA [...] [facility] | [address] | [place], [place] | | | GLORIA GENAO OF CARE | [address] | [address] | | | TESTS | | | [...] [facility] | [address] | [place], [place] | | | GLORIA GENAO OF CARE | [address] | [address] | | | TESTS | | | [...] + | [facility] | [address] | [place], [place] | | | CARDIOLOGY | [address] | [address] | | + + + + + [...] [facility] | [address] | [place], [place] | | | GLORIA GENAO OF CARE | [address] | [address] | | | TESTS | | | [...] + | [facility] | [address] | [place], [place] | | | [facility] | [address] | [address] | | | TESTS | | | [...] | + + + + + | [facility] | [address] | [place] [address] | | | SERVICES, CORE | [address] [...] [facility] | [address] | [place] [address] | | | SERVICES, CORE | [address] [...] | | | LABORATORY | | | QATARI | | | SERVICES, | | | [...] | + + + + + | [facility] | [address] | [place] [address] | | | SERVICES, NATALEE | VILMA [...] [facility] | [address] | [place], [place] | | | [facility] | [address] | [address] | | | TESTS | | | [...] [facility] | [address] | [place], [place] | | | GLORIA GENAO OF CARE | [address] | [address] | | | TESTS | | | [...] + | [facility] | [address] | [place], [place] | | | GLORIA GENAO OF [facility] | [address] | [address] | | | TESTS | | | [...] + | [facility] | [address] | [place], [place] | | | CARDIOLOGY | [address] | [address] | | + + + + + [...] [facility] | [address] | [place], [place] | | | [facility] | [address] | [address] | | | TESTS | | | [...] [facility] | [address] | [place] [address] | | | NATALEE WORTHINGTON | [address]ARK [...] | | | LABORATORY | | | QATARI | | | SERVICES, | | | [...] | + + + + + | [facility] | [address] | [place] [address] | | | SERVICES, CORE | P[address] [...] + + | [facility] | [address] | [place] [address] | | | NATALEE WORTHINGTON | VILMA [...] [facility] | [address] | [place], [place] | | | [facility] | [facility] | [address] | | | TESTS | | | [...] [facility] | [address] | [place], [place] | | | GLORIA GENAO OF CARE | [facility] | [address] | | | TESTS | | | [...] [facility] | [address] | [place], [place] | | | GLORIA GENAO OF [employer] | [address] | [address] | | | TESTS | | | [...] | | | IMPRESSION | by: PAULO CAVAOZS | | OF | | | | [...] OF | [address] | [place], [place] | | | CARDIOLOGY | [address] | [address] | | + + + + + [...] [facility] | [address] | [place], [place] | | | GLORIA GENAO OF [employer] | [address] | [address] | | | TESTS | | | [...] + + | [facility] | [address] | [place] [address] | | | NATALEE WORTHINGTON | VILMA [...] [facility] | [address] | [place] [address] | | | NATALEE WORTHINGTON | [address] [...] | | | LABORATORY | | | QATARI | | | SERVICES, | | | [...] | + + + + + | [facility] | [address] | [place] [address] | | | SERVICES, CORE | [address] [...] [facility] | [address] | [place], [place] | | | GL[facility]IA GENAO OF CARE | [address] | [address] | | | TESTS | | | [...] - [facility] | [address] | [place], [place] | | | [place] [facility] | [address] | [address] | | | TESTS | | | [...] poorly cleared with dry swallows. Please see [facility] report for full details | | [...] [facility] | [address] | [place], [place] | | | [facility] | [address] | [address] | | | TESTS | | | [...] [facility] | [address] | [place], [place] | | | GLORIA GENAO OF [facility] | [address] | [address] | | | TESTS | | | [...] [facility] | [address] [facility] | [place] [address] | | | NATALEE WORTHINGTON | VILMA [...] | + + + + + | [facility] | [address] | [place] [address] | | | SERVICES, CORE | PARK [...] | | | LABORATORY | | | QATARI | | | SERVICES, | | | [...] [facility] | [address] | [place] [address] | | | SERVICES, CORE | VILMA [...] [facility] | [address] | [place], [place] | | | GLORIA GENAO OF GM | [address] | [address] | | | TESTS | | | [...] [facility] | [address] | [place], [place] | | | GLORIA GENAO OF GM | [address] | [address] | | | TESTS | | | [...] + | [facility] | [address] [facility] | [place], [place] | | | CARDIOLOGY | [address] | [address] | | + + + + + [...] [facility] | [address] | [place], [place] | | | GLORIA GENAO OF GM | [facility] | [address] | | | TESTS | | | [...] [facility] | [address] | [place], [place] | | | GLORIA GENAO OF GM | [facility] | [address] | | | TESTS | | | [...] [facility] | [address] | [place], [place] | | | GLORIA GENAO OF CARE | [address] | [address] | | | TESTS | | | [...] | + + + + + | [facility] | [address] | [place] [address] | | | NATALEE WORTHINGTON | VILMA [...] | + + + + + | [facility] | [address] | [place] [address] | | | SERVICES, CORE | VILMA [...] | | | LABORATORY | | | QATARI | | | SERVICES, | | | [...] [facility] | [address] | [place] [address] | | | SERVICES, CORE | VILMA [...] [facility] | [address] | [place], [place] | | | GLORIA GENAO OF [employer] | [address] | [address] | | | TESTS | | | [...] [facility] | [address] | [place] [address] | | | SERVICES, CORE | VILMA [...] | + + + + + | [facility] | [address] | [place] [address] | | | SERVICES, CORE | VILMA [...] | | | LABORATORY | | | QATARI | | | SERVICES, | | | [...] [facility] | [address] | [place] [address] | | | SERVICES, CORE | VILMA [...] DEPT OF | [address] | [place], [place] | | | CARDIOLOGY | [address] | [address] | | + + + + + [...] Note | + + | Service Account, COSMIC COLOR Res In Interface - 09/24/2017 4:09 PM [...] [facility] | [address] [facility] | [place] [address] | | | ELIN, NATALEE | VILMA [...] | | | LABORATORY | | | QATARI | | | SERVICES, | | | [...] [facility] | [address] | [place] [address] | | | SERVICES, CORE | [address] [...] [facility] | [address] [facility] | [place] [address] | | | NATALEE WORTHINGTON | VILMA [...] | + + + + + | [facility] | [address] | [place] [address] | | | SERVICES, CORE | [address] [...] + + | [facility] | [address] | [place] [address] | | | ELIN, NATALEE | VILMA [...] | | | LABORATORY | | | QATARI | | | SERVICES, | | | [...] | + + + + + | [facility] | [address] | [place] [address] | | | SERVICES, CORE | VILMA [...] [facility] | [address] | [place], [place] | | | [facility] | [address] | [address] | | | TESTS | | | [...] + | [facility] | [address] [facility] [facility] [address] | [place], [place] | | | [place] [facility] | [address] | [address] | | | TESTS | | | [...] | + + + + + | [facility] | [address] | [place] [address] | | | SERVICES, NATALEE | VILMA [...] + | [facility] | [address] | [place], [place] | | | CARDIOLOGY | [address] | [address] | | + + + + + [...] [facility] | [address] | [place] [address] | | | SERVICES, CORE | P[address] [...] + + | [facility] | [address] | [place] [address] | | | SERVICES, CORE | VILMA [...] | | | LABORATORY | | | QATARI | | | SERVICES, | | | [...] + + | [facility] | [address] | [place] [address] | | | NATALEE WORTHINGTON | VILMA [...] [facility] | [address] | [place], [place] | | | [place] [facility] | [address] | [address] | | | TESTS | | | [...] [facility] | [address] | [place] [address] | | | NATALEE WORTHINGTON | P[address] [...] + + | [facility] | [address] | [place] [address] | | | SERVICES, CORE | VILMA [...] | | | LABORATORY | | | QATARI | | | SERVICES, | | | [...] | + + + + + | [facility] | [address] | [place] [address] | | | SERVICES, CORE | VILMA [...] report as now presented. Final signature: Mega Yeager, | | | 09/20/2017 6:24 PM Preliminary: [...] Note | + + | Service Account, [employer] Res In Interface - 09/20/2017 5:17 PM [...] + | [facility] | [address] | [place], [place] | | | CARDIOLOGY | [address] | [address] | | + + + + + [...] + + | [facility] | [address] | [place] [address] | | | SERVICES, CORE | [address] | | | + + + + + MAGNESIUM, PLASMA (09/20/2017 5:32 AM PDT) + +-------+ + + + | Component | Value | Ref Range | Performed | Pathologist | | | | | At | Signature | + +-------+ + + + | MAGNESIUM,P | 2.2 | 1.6 - 2.6 mg/dL | [facility] | | | LASMA | | | [...] + + | [facility] | [address] | [place] [address] | | | SERVICES, CORE | [address] [...] | | | LABORATORY | | | QATARI | | | SERVICES, | | | [...] | + + + + + | [facility] | [address] | [place] [address] | | | NATALEE WORTHINGTON | VILMA [...] [facility] | [address] | [place] [address] | | | SERVICES, CORE | [address] [...] + + | [facility] | [address] | [place] [address] | | | SERVICES, CORE | [address] [...] | | | LABORATORY | | | QATARI | | | SERVICES, | | | [...] | + + + + + | [facility] | [address] | [place] [address] | | | SERVICES, NATALEE | VILMA [...] [facility] | [address] | [place] [address] | | | SERVICES, CORE | [address] [...] + + | [facility] | [address] | [place] [address] | | | ELIN, NATALEE | VILMA [...] | | | LABORATORY | | | QATARI | | | SERVICES, | | | [...] | + + + + + | [facility] | [address] [facility] | [place] [address] | | | SERVICES, CORE | VILMA [...] Note | + + | Service Account, Power Fingerprinting In Interface - 09/17/2017 11:53 AM PDT [...] | + + + + + | [facility] | [address] | [place] [address] | | | SERVICES, CORE | [address] [...] + + | [facility] | [address] [facility] | [place] [address] | | | SERVICES, CORE | [address] [...] | | | LABORATORY | | | QATARI | | | SERVICES, | | | [...] [facility] | [address] | [place] [address] | | | SERVICES, [facility] | [address] | | | + + + + + X-RAY PORTABLE CHEST PICC LINE CHECK (09/16/2017 1:11 PM PDT) + + | Specimen | + + | | + + + + + | Narrative | Performed At | + + + | EXAM: OR CHEST PICC LINE CHECK HISTORY: PICC placement | [facility] | | COMPARISON: Earlier today FINDINGS: Left [...] Note | + + | Service Account, Power Fingerprinting In Interface - 09/16/2017 1:34 PM PDT EXAM: OR CHEST | | PICC LINE CHECK HISTORY: [...] At | + + + | EXAM: OR CHEST PICC LINE CHECK HISTORY: Evaluate PICC [...] Note | + + | Service Account, Power Fingerprinting In Interface - 09/16/2017 11:41 AM PDT EXAM: OR CHEST | | PICC LINE CHECK HISTORY: [...] [facility] | [address] | [place] [address] | | | SERVICES, CORE | [address] [...] + + | [facility] | [address] | [place] [address] | | | SERVICES, CORE | [address] [...] | | | LABORATORY | | | QATARI | | | SERVICES, | | | [...] [facility] | [address] | [place] [address] | | | NATALEE WORTHINGTON | [address] | | | + + + + + X-RAY PORTABLE CHEST 1 VIEW (09/15/2017 3:28 PM PDT) + + | Specimen | + + | | + + + + + | Narrative | Performed At | + + + | EXAM: OR CHEST 1 VIEW HISTORY: COMPARISON: None. | [...] Interface - 09/15/2017 6:45 PM PDT EXAM: OR CHEST 1 | | VIEW HISTORY: COMPARISON: [...] At | + + + | EXAM: OR CHEST PICC LINE CHECK HISTORY: PICC COMPARISON: [...] Note | + + | Service Account, COSMIC COLOR Res In Interface - 09/15/2017 6:43 PM PDT EXAM: OR CHEST | | PICC LINE CHECK HISTORY: [...] Indications:TPN Procedure | | | location: Unit:[facility] Room: [facility] Providers: Attending name: | [...] | area Basilic vein. Catheter lot number: [id number] with a length of 55 | | [...] Note | + + | Service Account, COSMIC COLOR Res In Interface - 09/15/2017 2:13 PM [...] + + | [facility] | [address] | [place] [address] | | | SERVICES, CORE | [address]ARK [...] + + | [facility] | [address] | [place] [address] | | | SERVICES, CORE | VILMA [...] | | | LABORATORY | | | QATARI | | | SERVICES, | | | [...] | + + + + + | [facility] | [address] | [place] [address] | | | NATALEE WORTHINGTON | VILMA [...] | + + + + + | [facility] | [address] | [place] [address] | | | SERVICES, CORE | [address] [...] [facility] | [address] | [place] [address] | | | SERVICES, CORE | [address] [...] | | | LABORATORY | | | QATARI | | | SERVICES, | | | [...] + + | [facility] | [address] | [place] [address] | | | SERVICES, CORE | [address] [...] | + + + + + | [facility] | [address] | [place] [address] | | | SERVICES, CORE | VILMA [...] [facility] | [address] | [place] [address] | | | SERVICES, CORE | [address] [...] | | | LABORATORY | | | QATARI | | | SERVICES, | | | [...] [facility] | [address] | [place] [address] | | | SERVICES, CORE | [address] | | | + + + + + X-RAY ABD LTD FEEDING TUBE EVAL (09/12/2017 6:50 AM PDT) + + | Specimen | + + | | + + + + + | Narrative | Performed At | + + + | EXAM: ABD LTD FEEDING TUBE EVAL HISTORY: Dobbhoff tube | [facility] | | placement. COMPARISON: 09/10/2017. FINDINGS/IMPRESSION: Tip [...] Note | + + | Service Account, COSMIC COLOR Res In Interface - 09/12/2017 9:13 AM [...] + + | [facility] | [address] | [place] [address] | | | NATALEE WORTHINGTON | VILMA [...] [facility] | [address] | [place] [address] | | | SERVICES, CORE | PARK [...] | | | LABORATORY | | | QATARI | | | SERVICES, | | | [...] | + + + + + | [facility] | [address] | [place] [address] | | | SERVICES, CORE | VILMA [...] Note | + + | Service Account, COSMIC COLOR Res In Interface - 09/12/2017 6:48 AM [...] | + + + + + | [facility] | [address] | [place] [address] | | | SERVICES, CORE | PARK [...] + + | [facility] | [address] [facility] | [place] [address] | | | SERVICES, CORE | [address] [...] | | | LABORATORY | | | QATARI | | | SERVICES, | | | [...] | + + + + + | [facility] | [address] | [place] [address] | | | NATALEE WORTHINGTON | [address]MA [...] + + | [facility] | [address] | [place] [address] | | | NATALEE WORTHINGTON | [address]ILMA [...] signature: Edelmira Parsons, | | | 09/10/2017 2:08 PM Created [...] Note | + + | Service Account, Power Fingerprinting In Interface - 09/10/2017 2:31 PM PDT [...] At | + + + | STUDY: OR CHEST 1 VIEW 09/10/17 07:02:01 HISTORY: Possible [...] Interface - 09/10/2017 9:25 AM PDT STUDY: OR CHEST 1 | | VIEW 09/10/17 07:02:01 [...] + + | [facility] | [address] | [place] [address] | | | SERVICES, CORE | [address]ARK [...] | + + + + + | [facility] | [address] | [place] [address] | | | SERVICES, CORE | VILMA [...] + + | [facility] | [address] | [place] [address] | | | NATALEE WORTHINGTON | VILMA [...] [facility] | [address] [facility] | [place] [address] | | | NATALEE WORTHINGTON | [address] [...] | | | LABORATORY | | | QATARI | | | SERVICES, | | | [...] | + + + + + | [facility] | [address] | [place] [address] | | | SERVICES, CORE | PARK [...] + | [facility] | [address] [facility] | [place], [place] | | | CARDIOLOGY | [address] | [address] | | + + + + + X-RAY ABD LTD FEEDING TUBE EVAL PORTABLE (09/09/2017 10:15 PM PDT) + + | Specimen | + + | | + + + + + | Narrative | Performed At | + + + | INDICATION: feeding tube placement TECHNIQUE: Supine portable | [facility] | | view of the upper abdomen. [...] Service Adal, Radiant Res In Interface - 09/10/2017 11:11 [...] [facility] | [address] | [place], [place] | | | GLORIA GENAO OF CARE | [address] | [address] | | | TESTS | | | [...] + + | [facility] | [address] | [place] [address] | | | SERVICES, CORE | [address]ARK [...] | + + + + + | [facility] | [address] | [place] [address] | | | SERVICES, CORE | [address] [...] | | | LABORATORY | | | QATARI | | | SERVICES, | | | [...] [facility] | [address] | [place] [address] | | | SERVICES, CORE | [address] [...] [facility] | [address] [facility] | [place] [address] | | | SERVICES, CORE [...] | | | LABORATORY | | | QATARI | | | SERVICES, | | | [...] [facility] | [address] | [place] [address] | | | SERVICES, CORE | VILMA [...] [facility] | [address] | [place] [address] | | | SERVICES, CORE | PARK [...] [facility] | [address] | [place] [address] | | | SERVICES, CORE | VILMA [...] + | [facility] | [address] | [place], [place] | | | CARDIOLOGY | [address] | [address] | | + + + + + X-RAY PORTABLE CHEST 1 VIEW (09/07/2017 6:12 AM PDT) + + | Specimen | + + | | + + + + + | Narrative | Performed At | + + + | EXAM: OR CHEST 1 VIEW HISTORY: Post extubation COMPARISON: [...] Interface - 09/07/2017 10:46 AM PDT EXAM: OR CHEST 1 | | VIEWHISTORY: Post extubationCOMPARISON: [...] + + | [facility] | [address] | [place] [address] | | | SERVICES, CORE | PARK [...] | | | LABORATORY | | | [facility] | | | SERVICES, | | | [...] [facility] | [address] | [place] [address] | | | NATALEE WORTHINGTON | VILMA [...] | + + + + + | [facility] | [address] [facility] | [place] [address] | | | NATALEE WORTHINGTON | P[address] [...] Note | + + | Service Account, [employer] Res In Interface - 09/07/2017 10:46 AM [...] At | + + + | EXAM: EL PEÑA FEEDING TUBE EVAL 09/06/17 18:14:00 COMPARISON: | [...] [facility] | [address] [facility] | [place], [place] | | | CARDIOLOGY | [address] | [address] | | + + + + + [...] | | | attempt. Midline lot number [id number]; there was positive blood | | | [...] | | | LABORATORY | | | Q[facility]I | | | SERVICES, | | | [...] | + + + + + | [facility] | [address] | [place] [address] | | | SERVICES, CORE | PARK [...] | + + + + + | [facility] | [address] | [place] [address] | | | SERVICES, CORE | [address] | | | + + + + + X-RAY PORTABLE CHEST 1 VIEW (09/05/2017 5:33 AM PDT) + + | Specimen | + + | | + + + + + | Narrative | Performed At | + + + | EXAM: OR CHEST 1 VIEW HISTORY: Evaluation after chest [...] Service Account, Kostas Casper In Interface - 09/05/2017 10:16 AM PDT EXAM: OR CHEST 1 | | VIEW HISTORY: Evaluation [...] + + | [facility] | [address] | [place] [address] | | | SERVICES, CORE | PARK [...] [facility] | [address] | [place] [address] | | | SERVICES, NATALEE | VILMA [...] | | | LABORATORY | | | QATARI | | | SERVICES, | | | [...] | + + + + + | [facility] | [address] | [place] [address] | | | SERVICES, CORE | PARK [...] | | | LABORATORY | | | QATARI | | | SERVICES, | | | [...] | + + + + + | [facility] | [address] [facility] | [place] [address] | | | SERVICES, CORE | VIL[address] [...] tomorrow morning. CB Henson Pager / ID: [phone] | | + + + CULTURE, SPUTUM [...] + | [facility] | [address] | [place] [address] | | | [place] | | | [...] + + | [facility] | [address] | [place] [address] | | | SERVICES, CORE | VILMA [...] | [facility] | | | GRAVITY | [place] performed by | | LABORATORY | | [...] + + | [facility] | [address] | [place] [address] | | | SERVICES, CORE | [address] | | | + + + + + CULTURE, BLOOD BACTI & YEAST MEGAN (09/04/2017 1:16 PM PDT) + + + [...] [facility] | [address] | [place] [address] | | | SERVICES, NATALEE | [address] | | | + + + + + CULTURE, BLOOD BACTI & YEAST [facility] (09/04/2017 1:16 PM PDT) + + + [...] + + | [facility] | [address] | [place] [address] | | | SERVICES, CORE | [address] [...] | | OF | | | | 05-09-2018 13:44:49 | | CARDIOLOGY | | + [...] DEPT OF | [address] | [place], [place] | | | CARDIOLOGY | [address] | [address] | | + + + + + X-RAY PORTABLE CHEST 1 VIEW (09/04/2017 7:04 AM PDT) + + | Specimen | + + | | + + + + + | Narrative | Performed At | + + + | EXAM: OR CHEST 1 VIEW HISTORY: Hypoxia. Intubated. | [...] Interface - 09/04/2017 9:49 AM PDT EXAM: OR CHEST 1 | | VIEW HISTORY: Hypoxia. [...] | + + + + + | [facility] | [address] | [place] [address] | | | SERVICES, CORE | VILMA [...] | + + + + + | [facility] | [address] [facility] | [place] [address] | | | SERVICES, CORE | VILMA [...] | | | LABORATORY | | | QAT[facility]I | | | SERVICES, | | | [...] [facility] | [address] | [place] [address] | | | SERVICES, CORE | PARK [...] + + | [facility] | [address] | [place] [address] | | | NATALEE WORTHINGTON | VILMA [...] [facility] | [address] | [place], [place] | | | GLORIA GENAO OF CARE | [facility] | [address] | | | TESTS | | | [...] [facility] | [address] | [place], [place] | | | [place] [facility]INT OF CARE | [address] | [address] | | | TESTS | | | [...] [facility] | [address] | [place], [place] | | | [place] [facility]ARE | [address] | [address] | | | TESTS | | | [...] [facility] | [address] | [place], [place] | | | [place] [facility] OF CARE | [address] | [address] | | | TESTS | | | [...] detected | [facility] - | | | [facility] | + + + + + + + + | Performing | Address | City/State/Zipcode | Phone Number | | Organization | | | | + + + + + | [facility] - | [address] | [place] [address] | | | [place] | | | [...] [facility] | [address] | [place] [address] | | | SERVICES, CORE | PARK [...] Note | + + | Service Account, Power Fingerprinting In Interface - 09/03/2017 9:54 AM PDT [...] + | [facility] | [address] | [place] [address] | | | [place] | | | | + + + [...] + + | [facility] | [address] | [place] [address] | | | SERVICES, CORE | PARK [...] | + + + + + | [facility] | [address] | [place] [address] | | | SERVICES, CORE | VILMA [...] | | | LABORATORY | | | QATARI | | | SERVICES, | | | [...] | + + + + + | [facility] | [address] [facility] | [place] [address] | | | SERVICES, CORE | VILMA [...] | + + + + + | [facility] | [address] [facility] | [place] [address] | | | SERVICES, [facility] | [address] | | | + + + + + OPERATION RECORD (09/02/2017 6:53 PM PDT) + + | Procedure Note | + + | Fidelina Shields MD - 09/02/2017 6:53 PM PDT Date of Service: 09/02/2017 | | Attending Surgeon: Fidelina Shields MD Receiving Lead(s): | | Ajay Garcia MD, resident. Preoperative [...] ICU in stable condition.Ajay Garcia, | | MDMackSHARLENE HinkleK/MODLDD: 09/02/2017 18:15:29DT: 09/02/2017 18:53:52Job #: | | [id number] to federal Medicare and Medicaid regulations I was present for | | the entire procedure.Fidelina Shields MDAssistant ProfessorDepartment of SurgeryOffice: | | [phone]: [id number] has been electronically signed by Fidelina Shields MD, | | 09/03/2017 at 9:11 AM. | | | | | |Fidelina Shields MD | |Care Manager Cna | |Department of Surgery | |Office: [phone] | |Pager: [phone] | | | |This has been electronically [...] [facility] | [address] | [place] [address] | | | SERVICES, CORE | VILMA [...] | + + + + + | [facility] | [address] | [place] [address] | | | SERVICES, CORE | PARK [...] | + + + + + | [facility] - | [address] | [place] [address] | | | [place] | | | [...] + + | [facility] | [address] | [place] [address] | | | SERVICES, NATALEE | VILMA [...] | | | LABORATORY | | | QATARI | | | SERVICES, | | | [...] | + + + + + | [facility] | [address] [facility] | [place] [address] | | | SERVICES, NATALEE | VILMA [...] Note | + + | Service Account, COSMIC COLOR Res In Interface - 09/02/2017 4:25 PM [...] surgical | | | contact: INGRID Garcia, R4 Surgery [phone] Pursuant | | | to federal Medicare and Medicaid regulations I was present for the | | | entire procedure. Fidelina Shields MD Care Manager Cna | | | Department of Surgery Office: [phone] Pager: [phone] This has | | | been electronically [...] [facility] | [address] | [place] [address] | | | SERVICES, CORE | VILMA [...] (H) | 0.90 - 1.20 INR | [facility] | | | | | | LABORATORY [...] | + + + + + | [facility] | [address] [facility] | [place] [address] | | | SERVICES, CORE | [address] | | | + + + + + OPERATION RECORD (09/02/2017 6:51 AM PDT) + ---+ | Procedure Note | + ---+ | Fidelina Shields MD - 09/02/2017 6:51 AM PDT Date of Service: 09/01/2017 | | Attending Surgeon: Fidelina Shields MD Receiving Lead(s): Haim Peralta MD. | | Ajay Garcia [...] 09/02/2017 06:17:53DT: 09/02/2017 | | 06:51:37Job #: [id number] to federal Medicare and Medicaid regulations I | | was present for the entire procedure.Fidelina Shields MDAssdioni ProfessorDepartment of | | SurgeryOffice: [phone]: [id number] has been electronically signed by Fidelina Snyder | | MD Cornelius, 09/02/2017 at 10:40 AM. | | | | | |Pursuant to federal Medicare and Medicaid regulations I was present for the entire procedur e. | | | | | | | |Fidelina Shields MD | |Care Manager Cna | |Department of Surgery | |Office: [phone] | |Pager: [phone] | | | |This has been electronically [...] [facility] | [address] | [place] [address] | | | SERVICES, CORE | PARK [...] | + + + + + | [facility] | [address] | [place] [address] | | | SERVICES, CORE | VILMA [...] + + + + | PRODUCT | [id number] | | [facility] | | | UNIT [...] + + + + | EXPIRATION | [id number] | | [facility] | | | DATE [...] + + + + | BLOOD | [id number] | | [facility] | | | PRODUCT [...] + + | [facility] | [address] | [place] [address] | | | SERVICES, | [address] [...] | + + + + + | [facility] | [address] | [place] [address] | | | SERVICES, CORE | VILMA [...] | | | LABORATORY | | | QATARI | | | SERVICES, | | | [...] + + | [facility] | [address] | [place] [address] | | | SERVICES, CORE | VILMA [...] | + + + + + | [facility] | [address] | [place] [address] | | | NATALEE WORTHINGTON | VILMA [...] | | | | INFORMATION: | | [place] | | | | QuantiFER[employer]-TB [employer] | [...] (http://www.cdc.gov/mmwr | | | | | | /preview/mmwrhtml/ub2100 | | | | | | a1.htm), [...] [facility] - | | | | by [employer], | | AIRPORT - | | | | | | [place] | | | | [address] | | | | | | Rogelio Pickard [facility] [place] [place] | | | | | | [address] | | | | | | | | | | | | [email or web address].[email or web address], Gui | | | | | | [...] | + + + + + | [facility] - | [address] | [place] [address] | | | [place] | | | [...] [facility] | [address] | [place] [address] | | | SERVICES, CORE | PARK [...] | + + + + + | [facility] | [address] | [place] [address] | | | SERVICES, CORE | VILMA [...] Note | + + | Service Account, Power Fingerprinting In Interface - 09/02/2017 8:55 AM PDT [...] At | + + + | EXAM: OR CHEST 1 VIEW HISTORY: Hypoxemia COMPARISON: 09/01/17 [...] Interface - 09/02/2017 10:34 AM PDT EXAM: OR CHEST 1 | | VIEW HISTORY: HypoxemiaCOMPARISON: [...] + + | [facility] | [address] | [place] [address] | | | SERVICES, CORE | PARK [...] + + | [facility] | [address] | [place] [address] | | | SERVICES, CORE | PARK [...] + + + + | PRODUCT | [id number] | | [facility] | | | UNIT [...] + + + + | EXPIRATION | [id number] | | [facility] | | | DATE [...] + + + + | BLOOD | [id number] | | [facility] | | | PRODUCT [...] [facility] | [address] | [place] [address] | | | SERVICES, | [address] [...] [facility] | [address] | [place] [address] | | | SERVICES, CORE | PARK [...] [facility] LAB[facility] | [address] | [place] [address] | | | NATALEE WORTHINGTON | VILMA [...] | + + + + + | [facility] | [address] [facility] | [place] [address] | | | SERVICES, CORE | VILMA [...] | | | LABORATORY | | | QATARI | | | SERVICES, | | | [...] | + + + + + | [facility] | [address] | [place] [address] | | | SERVICES, CORE | VILMA [...] [facility] | [address] [facility] | [place] [address] | | | SERVICES, CORE | VILMA [...] | + + + + + | [facility] | [address] | [place] [address] | | | SERVICES, CORE | [address] | | | + + + + + IR LULA HEREDIA (09/01/2017 2:06 PM PDT) + + | Specimen | + + | | + + + + + | Narrative | Performed At | + + + | Procedure: Selective visceral arteriography. IR Attending: | [facility] | | Marquez Hubbard MD, PhD IR [...] arteries | | | from the right AIRPORT TRAFFIC CONTROLLER approach. DSA was performed from the left [...] micropuncture access set was exchanged for a [employer] wire. Under fluoroscopic guidance, | | a 5 Fr flush catheter was used to evaluate the distal abdominal aorta and pelvic | | vasculature. A wire and catheter were then used to select the left common and internal | | iliac arteries from the right AIRPORT TRAFFIC CONTROLLER approach. DSA was performed from the left [...] micropuncture access set was exchanged for a abeo wire. Under fluoroscopic guidance, a 5 Fr flush catheter was used | |to evaluate the distal abdominal aorta and pelvic vasculature. A wire and catheter were th en used to select the left common and internal iliac arteries from the right AIRPORT TRAFFIC CONTROLLER approach. DSA was performed from the left [...] + + + | [facility] | [address] | [place], [place] | | | GLORIA GENAO OF [facility] | [address] | [address] | | | TESTS | | | | + + + + + EXPLORATORY LAPAROTOMY (09/01/2017 12:31 PM PDT) + + + | Narrative | Performed At | + + + | Fidelina Shields MD 09/01/2017 12:42 PM BRIEF OPERATIVE NOTE: | | | Date: 09/01/2017 Author: Fidelina Shields MD | | | Attending Physician: Fidelina Shields MD Receiving Lead(s): Haim Peralta | | | , Vicente Garcia MD, [facility] MS3 Prior [...] case. | | | Fidelina Shields MD Care Manager Cna Division of Trauma, | | | Critical Care and Acute Care Surgery Office: [phone] Pager: | [phone] | | + + + ABG-FULL ABL, [...] [facility] | [address] | [place], [place] | | | [place] POINT OF CARE | [address] | [address] | | | TESTS | | | [...] [facility] | [address] | [place] [address] | | | SERVICES, CORE | VILMA [...] [facility] | [address] | [place], [place] | | | GLORIA GENAO OF [facility] | [address] | [address] | | | TESTS | | | [...] + + + + | PRODUCT | [id number] | | [facility] | | | UNIT [...] + + + + | EXPIRATION | [id number] | | [facility] | | | DATE [...] + + + + | BLOOD | [id number] | | [facility] | | | PRODUCT [...] + + | [facility] | [address] | [place] [address] | | | SERVICES, | [address] [...] + + + + | PRODUCT | [id number] | | [facility] | | | UNIT [...] + + + + | EXPIRATION | [id number] | | [facility] | | | DATE [...] + + + + | BLOOD | [id number] | | [facility] | | | PRODUCT [...] [facility] | [address] | [place] [address] | | | SERVICES, | [address] [...] + + + + | PRODUCT | [id number] | | [facility] | | | UNIT [...] + + + + | EXPIRATION | [id number] | | [facility] | | | DATE [...] + + + + | BLOOD | [id number] | | [facility] | | | PRODUCT [...] + + | [facility] | [address] | [place] [address] | | | SERVICES, | [address] [...] + + + + | PRODUCT | [id number] | | [facility] | | | UNIT [...] + + + + | EXPIRATION | [id number] | | [facility] | | | DATE [...] + + + + | BLOOD | [id number] | | [facility] | | | PRODUCT [...] [facility] | [address] | [place] [address] | | | SERVICES, | [address] [...] + + + + | PRODUCT | [id number] | | [facility] | | | UNIT [...] + + + + | EXPIRATION | [id number] | | [facility] | | | DATE [...] + + + + | BLOOD | [id number] | | [facility] | | | PRODUCT [...] + + | [facility] | [address] | [place] [address] | | | SERVICES, | [address] [...] + + + + | PRODUCT | [id number] | | [facility] | | | UNIT [...] + + + + | EXPIRATION | [id number] | | [facility] | | | DATE [...] + + + + | BLOOD | [id number] | | [facility] | | | PRODUCT [...] | + + + + + | [facility] | [address] | [place] [address] | | | SERVICES, | [address] [...] + + + + | PRODUCT | [id number] | | [facility] | | | UNIT [...] + + + + | EXPIRATION | [id number] | | [facility] | | | DATE [...] + + + + | BLOOD | [id number] | | [facility] | | | PRODUCT [...] | + + + + + | [facility] | [address] | [place] [address] | | | SERVICES, | [address] [...] + + + + | PRODUCT | [id number] | | [facility] | | | UNIT [...] + + + + | EXPIRATION | [id number] | | [facility] | | | DATE [...] + + + + | BLOOD | [id number] | | [facility] | | | PRODUCT [...] | + + + + + | [facility] | [address] | [place] [address] | | | SERVICES, | [address] [...] + + + + | PRODUCT | [id number] | | [facility] | | | UNIT [...] + + + + | EXPIRATION | [id number] | | [facility] | | | DATE [...] + + + + | BLOOD | [id number] | | [facility] | | | PRODUCT [...] + + | [facility] | [address] | [place] [address] | | | SERVICES, | [address] [...] + + + + | PRODUCT | [id number] | | [facility] | | | UNIT [...] + + + + | EXPIRATION | [id number] | | [facility] | | | DATE [...] + + + + | BLOOD | [id number] | | [facility] | | | PRODUCT [...] + + | [facility] | [address] | [place] [address] | | | SERVICES, | [address] [...] + + + + | PRODUCT | [id number] | | [facility] | | | UNIT [...] + + + + | EXPIRATION | [id number] | | [facility] | | | DATE [...] + + + + | BLOOD | [id number] | | [facility] | | | PRODUCT [...] + + | [facility] | [address] | [place] [address] | | | SERVICES, | [address] [...] + + + + | PRODUCT | [id number] | | [facility] | | | UNIT [...] + + + + | EXPIRATION | [id number] | | [facility] | | | DATE [...] + + + + | BLOOD | [id number] | | [facility] | | | PRODUCT [...] + + | [facility] | [address] | [place] [address] | | | SERVICES, | [address] [...] + + + + | PRODUCT | [id number] | | [facility] | | | UNIT [...] + + + + | EXPIRATION | [id number] | | [facility] | | | DATE [...] + + + + | BLOOD | [id number] | | [facility] | | | PRODUCT [...] + + | [facility] | [address] | [place] [address] | | | SERVICES, | [address] [...] + + + + | PRODUCT | [id number] | | [facility] | | | UNIT [...] + + + + | EXPIRATION | [id number] | | [facility] | | | DATE [...] + + + + | BLOOD | [id number] | | [facility] | | | PRODUCT [...] + + | [facility] | [address] | [place] [address] | | | SERVICES, | [address] [...] + + + + | PRODUCT | [id number] | | [facility] | | | UNIT [...] + + + + | EXPIRATION | [id number] | | [facility] | | | DATE [...] + + + + | BLOOD | [id number] | | [facility] | | | PRODUCT [...] + + | [facility] | [address] | [place] [address] | | | SERVICES, | [address] [...] + + + + | PRODUCT | [id number] | | [facility] | | | UNIT [...] + + + + | EXPIRATION | [id number] | | [facility] | | | DATE [...] + + + + | BLOOD | [id number] | | [facility] | | | PRODUCT [...] + + | [facility] | [address] | [place] [address] | | | SERVICES, | [address] [...] + + + + | PRODUCT | [id number] | | [facility] | | | UNIT [...] + + + + | EXPIRATION | [id number] | | [facility] | | | DATE [...] + + + + | BLOOD | [id number] | | [facility] | | | PRODUCT [...] | + + + + + | [facility] | [address] | [place] [address] | | | SERVICES, | [address] [...] + + + + | PRODUCT | [id number] | | [facility] | | | UNIT [...] + + + + | EXPIRATION | [id number] | | [facility] | | | DATE [...] + + + + | BLOOD | [id number] | | [facility] | | | PRODUCT [...] | + + + + + | [facility] | [address] | [place] [address] | | | SERVICES, | [address] [...] + + + + | PRODUCT | [id number] | | [facility] | | | UNIT [...] + + + + | EXPIRATION | [id number] | | [facility] | | | DATE [...] + + + + | BLOOD | [id number] | | [facility] | | | PRODUCT [...] | + + + + + | [facility] | [address] | [place] [address] | | | SERVICES, | [address] [...] + + + + | PRODUCT | [id number] | | [facility] | | | UNIT [...] + + + + | EXPIRATION | [id number] | | [facility] | | | DATE [...] + + + + | BLOOD | [id number] | | [facility] | | | PRODUCT [...] | + + + + + | [facility] | [address] | [place] [address] | | | SERVICES, | [address] [...] + + + + | PRODUCT | [id number] | | [facility] | | | UNIT [...] + + + + | EXPIRATION | [id number] | | [facility] | | | DATE [...] + + + + | BLOOD | [id number] | | [facility] | | | PRODUCT [...] [facility] | [address] | [place] [address] | | | SERVICES, | [address] [...] + + + + | PRODUCT | [id number] | | [facility] | | | UNIT [...] + + + + | EXPIRATION | [id number] | | [facility] | | | DATE [...] + + + + | BLOOD | [id number] | | [facility] | | | PRODUCT [...] + + | [facility] | [address] | [place] [address] | | | SERVICES, | [address] [...] + + + + | PRODUCT | [id number] | | [facility] | | | UNIT [...] + + + + | EXPIRATION | [id number] | | [facility] | | | DATE [...] + + + + | BLOOD | [id number] | | [facility] | | | PRODUCT [...] + + | [facility] | [address] | [place] [address] | | | SERVICES, | [address] [...] + + + + | PRODUCT | [id number] | | [facility] | | | UNIT [...] + + + + | EXPIRATION | [id number] | | [facility] | | | DATE [...] + + + + | BLOOD | [id number] | | [facility] | | | PRODUCT [...] + + | [facility] | [address] | [place] [address] | | | SERVICES, | [address] [...] + + + + | PRODUCT | [id number] | | [facility] | | | UNIT [...] + + + + | EXPIRATION | [id number] | | [facility] | | | DATE [...] + + + + | BLOOD | [id number] | | [facility] | | | PRODUCT [...] + + | [facility] | [address] | [place] [address] | | | SERVICES, | [address] [...] + + + + | PRODUCT | [id number] | | [facility] | | | UNIT [...] + + + + | EXPIRATION | [id number] | | [facility] | | | DATE [...] + + + + | BLOOD | [id number] | | [facility] | | | PRODUCT [...] + + | [facility] | [address] | [place] [address] | | | SERVICES, | [address] [...] + + | [facility] | [address] | [place] [address] | | | SERVICES, CORE | [address] [...] | | | LABORATORY | | | QAT[facility]I | | | SERVICES, | | | [...] | + + + + + | [facility] | [address] | [place] [address] | | | NATALEE WORTHINTGON | [address] | | | + [...] [facility] | [address] | [place] [address] | | | NATALEE WORTHINGTON | [address] [...] [facility] | [address] | [place], [place] | | | GL[facility]IA GENAO OF [facility] | [address] | [address] | | | TESTS | | | | + + + + + X-RAY PORTABLE CHEST 1 VIEW (09/01/2017 9:18 AM PDT) + + | Specimen | + + | | + + + + + | Narrative | Performed At | + + + | EXAM: OR CHEST 1 VIEW HISTORY: Intubated COMPARISON: 08/31/17 [...] Note | + + | Service Account, Power Fingerprinting In Interface - 09/02/2017 1:23 PM PDT EXAM: OR CHEST 1 | | VIEW HISTORY: IntubatedCOMPARISON: [...] Note | + + | Service Account, COSMIC COLOR Res In Interface - 09/01/2017 1:40 PM [...] + + + + | PRODUCT | [id number] | | [facility] | | | UNIT [...] + + + + | EXPIRATION | [id number] | | [facility] | | | DATE [...] + + + + | BLOOD | [id number] | | [facility] | | | PRODUCT [...] + + | [facility] | [address] | [place] [address] | | | SERVICES, | [address] [...] + + + + | PRODUCT | [id number] | | [facility] | | | UNIT [...] + + + + | EXPIRATION | [id number] | | [facility] | | | DATE [...] + + + + | BLOOD | [id number] | | [facility] | | | PRODUCT [...] + + | [facility] | [address] | [place] [address] | | | SERVICES, | [address] [...] + + + + | PRODUCT | [id number] | | [facility] | | | UNIT [...] + + + + | EXPIRATION | [id number] | | [facility] | | | DATE [...] + + + + | BLOOD | [id number] | | [facility] | | | PRODUCT [...] + + | [facility] | [address] | [place] [address] | | | SERVICES, | [address] [...] + + + + | PRODUCT | [id number] | | [facility] | | | UNIT [...] + + + + | EXPIRATION | [id number] | | [facility] | | | DATE [...] + + + + | BLOOD | [id number] | | [facility] | | | PRODUCT [...] [facility] | [address] | [place] [address] | | | SERVICES, | [address] [...] + + + + | PRODUCT | [id number] | | [facility] | | | UNIT [...] + + + + | EXPIRATION | [id number] | | [facility] | | | DATE [...] + + + + | BLOOD | [id number] | | [facility] | | | PRODUCT [...] + + | [facility] | [address] | [place] [address] | | | SERVICES, | [address] [...] + + + + | PRODUCT | [id number] | | [facility] | | | UNIT [...] + + + + | EXPIRATION | [id number] | | [facility] | | | DATE [...] + + + + | BLOOD | [id number] | | [facility] | | | PRODUCT [...] + + | [facility] | [address] | [place] [address] | | | SERVICES, | [address] [...] + + + + | PRODUCT | [id number] | | [facility] | | | UNIT [...] + + + + | EXPIRATION | [id number] | | [facility] | | | DATE [...] + + + + | BLOOD | [id number] | | [facility] | | | PRODUCT [...] + + | [facility] | [address] | [place] [address] | | | SERVICES, | [address] [...] + + + + | PRODUCT | [id number] | | [facility] | | | UNIT [...] + + + + | EXPIRATION | [id number] | | [facility] | | | DATE [...] + + + + | BLOOD | [id number] | | [facility] | | | PRODUCT [...] | + + + + + | [facility] | [address] | [place] [address] | | | SERVICES, | [address] [...] Note | + + | Service Account, COSMIC COLOR Res In Interface - 09/01/2017 9:01 AM [...] + + + + | PRODUCT | [id number] | | [facility] | | | UNIT [...] + + + + | EXPIRATION | [id number] | | [facility] | | | DATE [...] + + + + | BLOOD | [id number] | | [facility] | | | PRODUCT [...] + + | [facility] | [address] | [place] [address] | | | SERVICES, | [address] [...] + + | [facility] | [address] | [place] [address] | | | NATALEE WORTHINGTON | [address] [...] | + + + + + | [facility] | [address] | [place] [address] | | | SERVICES, CORE | [address] | | | + + + + + MRI SPINE CERVICAL/THORACIC WO CONTRAST (09/01/2017 3:53 AM PDT) + + | Specimen | + + | | + + + + + | Narrative | Performed At | + + + | EXAM: MRI cervical and thoracic spine without contrast HISTORY: | [facility] | | Trauma, known vertebral fractures. COMPARISON: [...] | | | trauma ICU internal control consultant by Dr. Yang at 4:38 AM. I have | | | personally reviewed the images and, if necessary, edited the report. | | | I agree with the report as now presented. | | + + + + + | Procedure Note | + + | Service Account, COSMIC COLOR Res In Interface - 09/01/2017 10:10 AM [...] is injured.Discussed with trauma ICU internal control consultant | | by Dr. Yang at 4:38 AM.I have personally reviewed the images and, if necessary, | | edited the report. I agree with the report as now presented. | |3. Extensive soft tissue edema extending into the cervical and upper thoracic interspinous space, suggestive of interspinous ligament is injured. | | | |Discussed with trauma ICU internal control consultant by Dr. Yang at 4:38 AM. [...] | | | LABORATORY | | | [facility] | | | SERVICES, | | | [...] | + + + + + | [facility] | [address] | [place] [address] | | | SERVICES, CORE | [address] [...] + + | [facility] | [address] | [place] [address] | | | SERVICES, CORE | [address] [...] [facility] | [address] | [place] [address] | | | SERVICES, CORE | [address] [...] + + | [facility] | [address] [facility] | [place] [address] | | | NATALEE WORTHINGTON | [address] [...] pleural spaced was performed. A 32 size [place] chest tube was | | | placed [...] Discussed with the trauma ICU internal control consultant at 12:12 AM by | | | Dr. Yang. I have personally reviewed the images and, if | | | necessary, edited the report. I agree with the report as now | | | presented. | | + + + + + | Procedure Note | + + | Service Account, Kostas Res In Interface - 09/01/2017 10:14 AM [...] | | the trauma ICU internal control consultant at 12:[address] [email or web address].I [...] |Discussed with the trauma ICU internal control consultant at 12:[address] Yang. [...] + + + | [facility] | [address] | [place], [place] | | | [facility] | [address] | [address] | | | TESTS | | | [...] + + | [facility] | [address] | [place] [address] | | | SERVICES, CORE [...] + + | [facility] | [address] [facility] | [place] [address] | | | SERVICES, CORE | [address] | | | + + + [...] | Address | City/State/[facility] | Phone Number | | Organization | [...] [facility] | [address] | [place] [address] | | | [facility] | [address] | | | + + + + + X-RAY PORTABLE CHEST 1 VIEW (08/31/2017 7:07 PM PDT) + + | Specimen | + + | | + + + + + | Narrative | Performed At | + + + | STUDY: OR CHEST 1 VIEW HISTORY: Trauma COMPARISON: CT [...] Interface - 09/01/2017 1:44 PM PDT STUDY: OR CHEST 1 | | VIEWHISTORY: TraumaCOMPARISON: CT [...] + + | [facility] | [address] | [place] [address] | | | SERVICES, CORE | [address] [...] Note | + + | Service Account, Power Fingerprinting In Interface - 08/31/2017 8:22 PM PDT [...] rib, nondisplaced-Left | | 1st rib fracture, ihnlkzwdntyz-Tfv-xzbvnjdqs left lateral 8th rib fracture-T12 fracture | [...] + + | [facility] | [address] | [place] [address] | | | SERVICES, | [address] [...] + + | [facility] | [address] | [place] [address] | | | SERVICES, | [address] [...] + + | [facility] | [address] | [place] [address] | | | SERVICES, | [address] [...] [facility] | [address] | [place], [place] | | | GLORIA GENAO OF CARE | [facility] | [address] | | | TESTS | | | [...] + + + | [facility] | [address] | [place], [place] | | | GLORIA GENAO OF GM | [facility] | [address] | | | TESTS | | | [...] | | POC | | %PCV | [facility] | | | | | [...] [facility] | [address] | [place], [place] | | | GLORIA GENAO OF CARE | [address] | [address] | | | TESTS | | | | + + + + + ED BG-CITLALY BAKER (08/31/2017 5:21 PM PDT) + + [...] + | [facility] | [address] | [place], [place] | | | [facility] | [address] | [address] | | | TESTS | | | [...] + + + + | PRODUCT | [id number] | | [facility] | | | UNIT [...] + + + + | EXPIRATION | [id number] | | [facility] | | | DATE [...] + + + + | BLOOD | [id number] | | [facility] | | | PRODUCT [...] + + | [facility] | [address] | [place] [address] | | | SERVICES, | [address] [...] + + + + | PRODUCT | [id number] | | [facility] | | | UNIT [...] + + + + | EXPIRATION | [id number] | | [facility] | | | DATE [...] + + + + | BLOOD | [id number] | | [facility] | | | PRODUCT [...] [facility] | [address] | [place] [address] | | | SERVICES, | [address] [...] + + + + | PRODUCT | [id number] | | [facility] | | | UNIT [...] + + + + | EXPIRATION | [id number] | | [facility] | | | DATE [...] + + + + | BLOOD | [id number] | | [facility] | | | PRODUCT [...] | + + + + + | [facility] | [address] | [place] [address] | | | SERVICES, | [address] [...] + + + + | PRODUCT | [id number] | | [facility] | | | UNIT [...] + + + + | EXPIRATION | [id number] | | [facility] | | | DATE [...] + + + + | BLOOD | [id number] | | [facility] | | | PRODUCT [...] | + + + + + | [facility] | [address] | [place] [address] | | | SERVICES, | [address] [...] + + + + | PRODUCT | [id number] | | [facility] | | | UNIT [...] + + + + | EXPIRATION | [id number] | | [facility] | | | DATE [...] + + + + | BLOOD | [id number] | | [facility] | | | PRODUCT [...] | + + + + + | [facility] | [address] | [place] [address] | | | SERVICES, | [address] [...] + + + + | PRODUCT | [id number] | | [facility] | | | UNIT [...] + + + + | EXPIRATION | [id number] | | [facility] | | | DATE [...] + + + + | BLOOD | [id number] | | [facility] | | | PRODUCT [...] | + + + + + | [facility] | [address] | [place] [address] | | | SERVICES, | [address] [...] + + + + | PRODUCT | [id number] | | [facility] | | | UNIT [...] + + + + | EXPIRATION | [id number] | | [facility] | | | DATE [...] + + + + | BLOOD | [id number] | | [facility] | | | PRODUCT [...] [facility] | [address] | [place] [address] | | | SERVICES, | [address] [...] + + + + | PRODUCT | [id number] | | [facility] | | | UNIT [...] + + + + | EXPIRATION | [id number] | | [facility] | | | DATE [...] + + + + | BLOOD | [id number] | | [facility] | | | PRODUCT [...] + + | [facility] | [address] | [place] [address] | | | SERVICES, | [address] [...] | + + + + + | [facility] | [address] [facility] | [place] [address] | | | SERVICES, CORE | [address] [...] | | | LABORATORY | | | [facility]I | | | SERVICES, | | | [...] [facility] | [address] | [place] [address] | | | SERVICES, CORE | [address] [...] valves (2.5 - 3.5) INR APTT | [facility], CORE | | Therapeutic Range: (75 - 120) sec | | | Heparin levels of 0.35 - 0.7 U/mL | | + + + + + + + + | Performing | Address | City/State/Zipcode | Phone Number | | Organization | | | | + + + + + | [facility] | [address] | [place] [address] | | | SERVICES, CORE | [address] [...] + + | [facility] | [address] | [place] [address] | | | SERVICES, CORE | [address] [...] | + + + + + | [facility] | [address] | [place] [address] | | | SERVICES, CORE | [address] [...] | + + + + + | [facility] | [address] | [place] [address] | | | SERVICES, CORE | [address] [...] | | | | First dose on e 10/29/17 at 1030, | | | | | [...] | INTRAPROCEDURE PRN, Starting Sat | | 18 6:03 | | | [...] +-------+ +------+---+---+ +-------+ +------+---+---+ | Given | 07/01/20 | 4 mg | | | | [...] | | | | modification) on [facility] 11/07/17 at | | | | [...] PM PDT | | | | | Sat10/29/17 at 0742, Until Fri | | | [...] | Units | | | | Starting Sat11/05/17 at 1632, | | PM PDT | [...]
--- OUTSIDE RECORDS SUMMARY | ~2019-04-04 | XMS | Encounter Summary ---
Demographics + + + | Address | [address] | | | [place] [address] | + + + | Home Phone [...] Author + + + | Author | [facility] [facility] | + + + | Organization | [facility] [employer] [facility] [...] Providers + +------+ + | Care Felt Hat Mellowing Machine Operator Name | Role | Phone [...] Anesthesia | 6A Intra Op [facility] | Loi Velasco, | | | 2018 | Event | [facility] | [address] | | | | | Admitting Desk | [address] | | | | | Located on the 9 | [place], [place] | | | | | [facility] [address] [facility] | [address] | | | | | [facility] | [phone] | | | | | [place], [place] | | | | | | [address] | Joslyn Boss, | | | | | | [address] | | | | | | [facility] | | | | | | [place], [place] | | | | | | [address] | | | | | | [phone] | | | | | | | [...]
--- OUTSIDE RECORDS SUMMARY | ~2019-04-04 | XMS | Encounter Summary ---
Demographics + + + | Address | [address] | | | [place] [address] | + + + | Home Phone | | + + + | Preferred Language | Unknown | + + + | Marital Status | Single | + + + | Episcopal Affiliation | PEN | + + + | Race | or | + + + | Ethnic Group | Not or | + + + Author + + + | Author | [facility] [facility] | + + + | Organization | [facility] [employer] [facility] [...] Team Providers + +------+ + | Care Photographic Equipment Mechanic Name | Role | Phone | [...] | | | 2018 | Pass | [facility] | | | | | | Admitting Desk | | | | | | Located on the 9th | | | | | | floor [address] [facility] | | | | | | [address] | | | | | | [place], [place] | | | | | | [address] | | | +--------+ + + + [...]
--- OUTSIDE RECORDS SUMMARY | ~2019-04-04 | XMS | Encounter Summary ---
Demographics + + + | Address | [address] | | | [place] [address] | + + + | Home Phone [...] + | Author | [facility] [employer] [facility] | + + + | Organization | [facility] [employer] [facility] | + + + | Address | Unknown | + + + | Phone | Unavailable | + + + Support + + +---------+ + | Name | Relationship | Address | Phone | + + +---------+ + | Kaylie Baig | ECON | Unknown | | + + +---------+ + Care Team Providers + +------+ + | Care Salmon Gillnet Vessel Operator Name | Role | Phone | [...] | 2017 | Pass | Services at [facility] | | | | | | [address] | | | | | | Nola Tovar Mailcode: | | | | | | [address] [facility] | | | | | | [place], [place] | | | | | | [address] | | | | | | [phone] | | | +--------+ + + + [...]
--- OUTSIDE RECORDS SUMMARY | ~2019-04-04 | XMS | Encounter Summary ---
Demographics + + + | Address | [address] | | | [place] [address] | + + + | Home Phone [...] + + | Author | [facility] [employer] [facility] | + + + | Organization | [facility] [employer] [facility] | + [...] Team Providers + +------+ + | Care Deburr Technician Name | Role | Phone | [...] [address] | | | | | | [place], [place] | | | | | | [address] | | | +--------+ + + + [...]
--- OUTSIDE RECORDS SUMMARY | ~2019-04-04 | XMS | Encounter Summary ---
Demographics + + + | Address | [address] | | | [place] [address] | + + + | Home Phone [...] Author | [facility] [facility] | + + + | Organization | [facility] [employer] [facility] | + + + | Address | Unknown | + + + | Phone | Unavailable | + + + Support + + +---------+ + | Name | Relationship | Address | Phone | + + +---------+ + | Kaylie Baig | ECON | Unknown | | + + +---------+ + Care Team Providers + +------+ + | Care Winch Operator Name | Role | Phone | [...] 10/10/ | Anesthesia | 6A Intra Op [facility] | Juve Menjivar | | | 2018 | Event | [facility] | MD Lillian [address] [facility] | | | | | Admitting Desk | [address] | | | | | Located on the 9 | [place], [place] | | | | | [facility] [address] [facility] | [address] | | | | | [facility] | [phone] | | | | | [place], [place] | | | | | | [address] | Rg Arriola, | | | | | | [facility] [address] [facility] | | | | | | [facility] | | | | | | [place], [place] | | | | | | [address] | | | | | | [phone] | | | | | | | [...] centrally accessed); | | | | | [id number]; 10/22/17; 1542; | | | | | [...]
--- OUTSIDE RECORDS SUMMARY | ~2019-04-04 | XMS | Encounter Summary ---
Demographics + + + | Address | [address] | | | [place] [address] | + + + | Home Phone [...] + | Author | [facility] | + + + | Organization | [facility] [employer] [facility] | + + [...] Providers + +------+ + | Care Mobile Patrol Officer Name | Role | Phone | [...] | 2018 | Pass | Services at [facility] | | | | | | [address] | | | | | | Nola Tovar Mailcode: | | | | | | [address] | | | | | | [facility] | | | | | | [place], [place] | | | | | | [address] | | | | | | [phone] | | | +--------+ + + + [...]
--- OUTSIDE RECORDS SUMMARY | ~2019-04-04 | XMS | Encounter Summary ---
Demographics + + + | Address | [address] | | | [place] [address] | + + + | Home Phone [...] Author | [facility] | + + + | Organization | [facility] [employer] [facility] | + + + | Address | Unknown | + + + | Phone | Unavailable | + + + Support + + +---------+ + | Name | Relationship | Address | Phone | + + +---------+ + | Kaylie Baig | ECON | Unknown | | + + +---------+ + Care Team Providers + +------+ + | Care J2Ee Consultant Name | Role | Phone | [...] | | | 2018 | Event | [facility] | [address] | | | | | Admitting Desk | [place], | | | | | Located on the | [place] [address] | | | | | floor [address] [facility] | [phone] | | | | | [address] | | | | | | [place], [place] | [place] Forte [place] | | | | | [address] | [address] | | | | | | Nola Tovar [facility] | | | | | | [place] [address] | | | | | | [phone] | | | | | | | [...] PDT | | | | | Until Soh 10/24/17 at 1214 | | | | [...]
--- OUTSIDE RECORDS SUMMARY | ~2019-04-04 | XMS | Encounter Summary ---
Demographics + + + | Address | [address] | | | [place] [address] | + + + | Home Phone [...] + | Author | [facility] | + + + | Organization | [facility] [employer] [facility] | [...] + +------+ + | Care Rotary Drier Name | Role | Phone | + [...] | | | 2018 | Event | [facility] | [address] | | | | | Admitting Desk | [place], | | | | | Located on the | [place] [address] | | | | | floor [address] | [phone] | | | | | [address] | | | | | | [place], [place] | Joslyn Boss, | | | | | [address] | [address] | | | | | | [address] | | | | | | [place], [place] | | | | | | [address] | | | | | | [phone] | | | | | | | [...] + + + | Periph | 08/31/17; [facility]; Right; | 08/31/17 0000 by | 09/05/178 by | | ansley | Hand; 18 g; 09/05/17; 1717; Per | Guera Gresham RN | Barbie Yu RN | | IV | protocol | | | +--------+ + + + | Periph | 08/31/17; [facility]; Right; | 08/31/17 0000 by | [...] 20 g; 09/03/17; 739 | Cristina | Zeanida Black RN | | IV | | [...]
--- OUTSIDE RECORDS SUMMARY | ~2019-04-04 | XMS | Encounter Summary ---
Demographics + + + | Address | [address] | | | [place] [address] | + + + | Home Phone [...] + + | Author | [facility] | + + + | Organization | [facility] [facility] [...] Team Providers + +------+ + | Care Medicare Contact Specialist Name | Role | Phone | [...] | | | 2018 | Event | [facility] | MD Lillian [address] [facility] | | | | | Admitting Desk | [address] | | | | | Located on the 9 | [place], [place] | | | | | [facility] [address] [facility] | [address] | | | | | [facility] | [phone] | | | | | [place], [place] | | | | | | [address] | Rg Arriola, | | | | | | [facility] [address] [facility] | | | | | | [facility] | | | | | | [place], [place] | | | | | | [address] | | | | | | [phone] | | | | | | | [...] centrally accessed); | | | | | [id number]; 10/22/17; 1542; | | | | | [...] | | (7mm); Right; head- parietal; | Katirn Watson RN | Adrianna Romero RN | [...]
--- OUTSIDE RECORDS SUMMARY | ~2019-04-04 | XMS | Encounter Summary ---
Demographics + + + | Address | [address] | | | [place] [address] | + + + | Home Phone [...] + | Author | [facility] [employer] [facility] | + + + | Organization | [facility] [employer] [facility] | + [...] Providers + +------+ + | Care Supervisor Lending Activities Name | Role | Phone | + [...] | | 2018 | Pass | [facility] | | | | | | Admitting Desk | | | | | | Located on the 9th | | | | | | floor [address] [facility] | | | | | | [address] | | | | | | [place], [place] | | | | | | [address] | | | +--------+ + + + [...]
--- OUTSIDE RECORDS SUMMARY | ~2019-04-04 | XMS | Encounter Summary ---
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 examined th e patient today with KESHAWN Martin, and agree with the assessement and plan a s outlined in her note. Will consider changing to bolus TF. Plan Gabriel-oconnor tube next week. Chaz Munoz MD, FACS Precision Mechanical Instrument Maker, Trauma, Critical Care and Acute Care Surgery [...] atient unable to come out fo TEST SKEIN WINDER for now Resolved or chronic issues/Plan: #Previous [...] issues, including restraints. Venita Pruitt PA-C [place] [phone] [place] [phone] [facility] [place] [address] [place] [facility] [place] [address] Associated attestation - Em Cunningham MD - 10/17/2017 10:13 AM PDTI was present and rou nded with the Advanced Practice Provider today . I interviewed and examined the patient. I reviewed the history, as documented today. I agree with the ASHLEY assessment and plan. TBI has remained stable. On lovenox. Will continue haldol per psych.. EM CUNNINGHAM MD [facility] [address] [place] [address] Venita Pruitt PA-C - 10/05/2017 8:38 AM [...] atient unable to come out fo TEST SKEIN WINDER for now Resolved or chronic issues/Plan: #Previous [...] by patient, but wound remains duke n/dry/intact. Martin removed 09/17. #Left hemothorax Chest tube placed [...] issues, including restraints. Venita Pruitt PA-C [place] [phone] [facility] [address] [place] [facility] [phone] Associated attestation - Shlomo Rosenthal MD - 10/06/2017 7:28 AM PDTFormatting of this note m ight be different from the original. I saw and examined Berlin Temple ([id number]) with the TRAUMA team on 10/05/2017. I [...] and incen tive spirometry for pulmonary toliet. supplemental manager for disposition planning and placement. Shlomo Rosenthal MD Bolt Machine Operator Division of Trauma and Critical Care [facility], Venita Maciel PA-C - 10/04/2017 6:36 [...] (baseline from previous TBI ) Neck: in Harvel collar Respiratory: CTA b.l CV: RRR GI: [...] atient unable to come out fo TEST SKEIN WINDER for now Resolved or chronic issues/Plan: #Previous [...] issues, including restraints. Venita Pruitt PA-C [place] [phone] [place] [phone] [facility] [place] [address] [address] [facility] [place] [facility] [phone] Associated attestation - Fidelina Shields MD - [...] and only enteral access. Fidelina Shields MD Precision Mechanical Instrument Maker Division of Trauma, Critical Care and Acute Care Surgery Office: [phone] Pager: [phone] Melissa LeonorCB - 10/03/2017 3:13 PM PDT [...] (baseline from previous TBI ) Neck: in Harvel collar Respiratory: CTA bilaterally, no distress CV: [...] atient unable to come out fo TEST SKEIN WINDER for now Resolved or chronic issues/Plan: Previous [...] by patient, but wound remains duke n/dry/intact. Martin removed 09/17. #Left hemothorax Chest tube placed [...] PDTAttending: I saw and examined Berlin Temple ([id number]) with CB Hair on morning rounds 10/03 and agree with the assessment and plan as outlined in this note and participated in the planning of care. Mental status is slightly better, remains sedated but he is interactive and at least somewh at oriented. Enteral nutrition advancing and, as approaches goal, will turn TPN off. Place ment remains a significant issue. Fidelina Shields MD Precision Mechanical Instrument Maker Division of Trauma, Critical Care and Acute Care Surgery Office: [phone] Pager: [phone] July Banegas PA-C - 10/03/2017 12:58 PM [...] C-collar when in bed then the TEST SKEIN WINDER when out of bed until 12/01/17. JULY BANEGAS PA-C [facility] [address] [place] [address] Associated attestation - Magdiel Stock MD - 10/04/2017 6:02 PM PDTI performed a history a nd physical examination of the patient and discussed the management with the advanced practi ce provider, July Banegas PA-C. I reviewed the advanced practice provider's note and agree w ith the plan of care as documented. Continue cervical collar and TEST SKEIN WINDER for 3 months to ensure fracture healing and prevent development of post-fracture cervical kyphosis. Magdiel Stock MD Precision Mechanical Instrument Maker Department of Neurological Surgery [facility] [place] Sherine Sarmiento AGACNP - 10/02/2017 12:54 PM [...] (baseline from previous TBI ) Neck: in Harvel collar Respiratory: CTA bilaterally, lungs symmetrical, equal chest wall rise, no retractions CV: RRR GI: non tender, soft, active BS, last BM 09/30 : Patient voiding without difficulty Extremities: no peripheral edema, wiggles toes and toes pink and well perfused Musculoskeletal: 5/5 acoustic engineer strength on right, 3/5 acoustic engineer strength on left FEN: on TPN, [...] AMS & delirium - numerous evaluations by QUILTING MACHINE OPERATOR with trials of PO - [...] - C-collar at all times, use TEST SKEIN WINDER when OOB - Follow-up with Neurosurgery on 10/21 with repeat X-rays #Blunt abdominal trauma #Splenic laceration S/p laparotomies x2. Fascia closed 09/02 Wound vac removed by patient, but wound remains duke n/dry/intact. Martin removed 09/17. #Left hemothorax Chest tube placed [...] will decrease scheduled [place]g [phone] Associated attestation - Fidelina Shields MD - 10/02/2017 4:40 PM PDTAttending: I saw and examined Berlin Temple ([id number]) with KESHAWN Alexander on mornin g rounds [...] place prior to DC Fidelina Shields MD Precision Mechanical Instrument Maker Division of Trauma, Critical Care and Acute Care Surgery Office: [phone] Pager: [phone] Sherine Sarmiento AGACNP - 10/01/2017 7:27 AM [...] (baseline from previous TBI ) Neck: in Harvel collar Respiratory: CTA bilaterally, lungs symmetrical, equal chest wall rise, no retractions CV: RRR GI: non tender, soft, active BS, last BM 09/30 : Patient voiding without difficulty Extremities: no peripheral edema, wiggles toes and toes pink and well perfused Musculoskeletal: 5/5 acoustic engineer strength on right, 3/5 acoustic engineer strength on left FEN: on TPN [...] AMS & delirium - numerous evaluations by QUILTING MACHINE OPERATOR with trials of PO - now s/p modified barium swallow x2 which indicates aspiration - continue NPO - QUILTING MACHINE OPERATOR reports that patient working on [...] - C-collar at all times, use TEST SKEIN WINDER when OOB - Follow-up with Neurosurgery on [...] with trauma team and sister. Sherine Sarmiento, [facility] [place]g [phone] Associated attestation - Fidelina Shields MD - 10/02/2017 4:40 PM PDTAttending: I saw and examined Berlin Temple ([id number]) with KESHAWN Alexander on mornin g rounds 10/01/17 and agree with the assessment and plan as outlined in this note and partic ipated in the planning of care. Will trial DHT placement today, CT head unchanged. Suspect somnolence is medication side ef fect and, if persistent, may need to wean antipsychotic doses. Fidelina Shields MD Precision Mechanical Instrument Maker Division of Trauma, Critical Care and Acute Care Surgery Office: [phone] Pager: [phone] Christian Kelley PA-C - 09/30/2017 12:21 PM [...] Fixed and dilated on left Neck: in Harvel collar Respiratory: CTA bilaterally, lungs symmetrical, equal chest wall rise, no retractions CV: RRR GI: non tender, soft, active BS, last BM 09/30 : Patient voiding without difficulty Extremities: no peripheral edema, wiggles toes and toes pink and well perfused Musculoskeletal: 5/5 acoustic engineer strength on right, 3/5 acoustic engineer strength on left FEN: on TPN [...] AMS & delirium - numerous evaluations by QUILTING MACHINE OPERATOR with trials of PO - now s/p modified barium swallow x2 which indicates aspiration - continue NPO - QUILTING MACHINE OPERATOR reports that patient working on [...] - C-collar at all times, use TEST SKEIN WINDER when OOB - Follow-up with Neurosurgery on 10/21 with repeat X-rays #Blunt abdominal trauma #Splenic laceration S/p laparotomies x2. Fascia closed 09/02 Wound vac removed by patient, but wound remains duke n/dry/intact. Martin removed 09/17. #Left hemothorax Chest tube placed [...] PDTAttending: I saw and examined Berlin Temple ([id number]) with Chrsitian Kelley PA-C on morning rounds 09/30 and agree with the assessment and plan as outlined in this note and participated in the planning of care. Mentally slower this morning, but non-focal. Received haldol overnight for sleep. Repeat head CT was unchanged so suspect etiology of slowed responsiveness is the antipsychotic dose . QUILTING MACHINE OPERATOR believes that, once collar off, may be able to take PO more effectively and thus will hold off on surgical feeding access. TPN is a temporary solution and if patient remains kaye nable will trial DHT tomorrow. Working with psychiatry for medication recommendations. Fidelina Shields MD Precision Mechanical Instrument Maker Division of Trauma, Critical Care and Acute Care Surgery Office: [phone] Pager: [phone] July Banegas PA-C - 09/30/2017 8:23 AM PDTBrief Neurosurgery Wound Check: Wound is dry, without erythema, not fluctuant. No acute swelling. Nylon in place. Will plan to follow peripherally for wound checks and remove nylons on 10/09. JULY BANEGAS PA-C [facility] [address] [place] [address] Christian Begum PA-C - 09/29/2017 7:15 AM [...] and EOMs intact to exam Neck: in Harvel collar Respiratory: CTA bilaterally, lungs symmetrical, equal [...] AMS & delirium - numerous evaluations by QUILTING MACHINE OPERATOR with trials of PO - [...] - C-collar at all times, use TEST SKEIN WINDER when OOB - Follow-up with Neurosurgery on 10/21 with repeat X-rays #Blunt abdominal trauma #Splenic laceration S/p laparotomies x2. Fascia closed 09/02 Wound vac removed by patient, but wound remains duke n/dry/intact. Martin removed 09/17. #Left hemothorax Chest tube placed [...] PDTAttending: I saw and examined Berlin Temple ([id number]) with Christian Kelley PA-C on morning rounds [...] in conjunction with psychiatry. Fidelina Shields MD Precision Mechanical Instrument Maker Division of Trauma, Critical Care and Acute Care Surgery Office: [phone] Pager: [phone] Christian Kelley PA-C - 09/28/2017 1:01 PM [...] he said, who, ariel? And then the SUPERVISOR FRAME ASSEMBLY helped him make a call to her. [...] and EOMs intact to exam Neck: in Harvel collar Respiratory: CTA bilaterally, lungs symmetrical, equal [...] very agitated today. - EKG today with Jeff QTc calculated to be 428 - optimize [...] AMS & delirium - numerous evaluations by QUILTING MACHINE OPERATOR with trials of PO - [...] - C-collar at all times, use TEST SKEIN WINDER when OOB - Follow-up with Neurosurgery on [...] to communicate more toyoselin Munoz MD, FACS Precision Mechanical Instrument Maker, Trauma, Critical Care and Acute Care Surgery Chaz Munoz MD - 09/28/2017 10:13 AM PDTTrauma Staff Seen and examined this AM with team. I have concerns abotu behaviour, as he is consistently threatening RN and ancillary staff, even attempting swings. Behavior seems worse at night. I would favor increasing night time Haldol dose, and following EKGs. Chaz Munoz MD, FACS Precision Mechanical Instrument Maker, Trauma, Critical Care and Acute Care Surgery [...] Dallin Bourgeois MD Neurosurgery PGY1 | Pager #[phone] Christian Begum PA-C - 09/27/2017 7:31 AM [...] able to have a linear conversation briefly QUILTING MACHINE OPERATOR requesting repeat barium swallow Current [...] healing , suture c/d/I Neck: in TEST SKEIN WINDER Respiratory: unlabored on room air, lungs symmetrical, [...] AMS & delirium - numerous evaluations by QUILTING MACHINE OPERATOR with trials of PO - [...] - C-collar at all times, use TEST SKEIN WINDER when OOB - Follow-up with Neurosurgery on 10/21 with repeat X-rays #Blunt abdominal trauma #Splenic laceration S/p laparotomies x2. Fascia closed 09/02 Wound vac removed by patient, but wound remains duke n/dry/intact. Martin removed 09/17. #Left hemothorax Chest tube placed [...] cotinue TPN for now. EM CUNNINGHAM MD [facility] [address] [place] [address] Christian Kelley PA-C - 09/26/2017 6:48 AM [...] posterior scalp crani incision c/d/I Neck: in Harvel collar Respiratory: unlabored on room air CV: [...] AMS & delirium - numerous evaluations by QUILTING MACHINE OPERATOR with trials of PO - [...] - C-collar at all times, use TEST SKEIN WINDER when OOB - Follow-up with Neurosurgery on 10/21 with repeat X-rays #Blunt abdominal trauma #Splenic laceration S/p laparotomies x2. Fascia closed 09/02 Wound vac removed by patient, but wound remains duke n/dry/intact. Martin removed 09/17. #Left hemothorax Chest tube placed [...] Continue NPO and TPN. EM CUNNINGHAM MD [facility] [address] [place] [address] Christian Kelley PA-C - 09/25/2017 7:49 AM [...] EOMs intact to exam Neck: in TEST SKEIN WINDER brace Respiratory: unlabored on room air CV: [...] AMS & delirium - numerous evaluations by QUILTING MACHINE OPERATOR with trials of PO - [...] - C-collar at all times, use TEST SKEIN WINDER when OOB - Follow-up with Neurosurgery on [...] LFTS wnl. Continue TPN. EM CUNNINGHAM MD [facility] [address] [place] [address] Christian Kelley PA-C - 09/24/2017 11:07 AM [...] with agitation Having difficulty swallowing again - QUILTING MACHINE OPERATOR to re-eval and obtain barium [...] EOMs intact to exam Neck: in TEST SKEIN WINDER brace Respiratory: CTA bilaterally, lungs symmetrical, equal chest wall rise, no retractions CV: RRR GI: non distended, last BM 09/23 : good urine output Extremities: SCD's in place, no peripheral edema, wiggles toes and toes pink and well perfu sed Musculoskeletal: 5/5 strength in bilateral acoustic engineer (but with slightly weaker on left) [...] likely 2/2 AMS & delirium - Failed QUILTING MACHINE OPERATOR eval 09/19 & 09/20, made NPO & dobhoff reinserted 09/21 but pulled overnight - Per QUILTING MACHINE OPERATOR on 09/21, ok for therapeutic [...] - C-collar at all times, use TEST SKEIN WINDER when OOB - Follow-up with Neurosurgery on 10/21 with repeat X-rays #Blunt abdominal trauma #Splenic laceration S/p laparotomies x2. Fascia closed 09/02 Wound vac removed by patient, but wound remains duke n/dry/intact. Martin removed 09/17. #Left hemothorax Chest tube placed [...] Start abx for dehiscence. EM CUNNINGHAM MD [facility] [address] [place] [address] Ginette Campos PA-C - 09/24/2017 9:31 AM [...] 4 extremities Unable to assess drift. Motor: Guest Experience Manager Bicep Tricep Delt R 5 5 [...] further questions or concerns. Ginette Campos PA-C [facility] [address] [place] [phone] [facility]ite[facility]riel Atkins AGACNP - 09/23/2017 6:32 AM PDT [...] draining minimal serosang fluid Neck: in TEST SKEIN WINDER brace Respiratory: unlabored on room air CV: [...] likely 2/2 AMS & delirium - Failed QUILTING MACHINE OPERATOR eval 09/19 & 09/20, made NPO & dobhoff reinserted 09/21 but pulled overnight - Per QUILTING MACHINE OPERATOR on 09/21, ok for therapeutic [...] - C-collar at all times, use TEST SKEIN WINDER when OOB - Follow-up with Neurosurgery on 10/21 with repeat X-rays #Blunt abdominal trauma #Splenic laceration S/p laparotomies x2. Fascia closed 09/02 Wound vac removed by patient, but wound remains duke n/dry/intact. Martin removed 09/17. #Left hemothorax Chest tube placed [...] improves Sherine Sarmiento, [facility] [place]g [phone] Dallin Deshpande MD - 09/22/2017 8:03 AM [...] Dallin Bourgeois MD Neurosurgery PGY1 | Pager #[phone] ELLSherine Atkins, AGACNP - 09/22/2017 6:52 AM [...] 24hr events: - Therapeutic purees initiated by QUILTING MACHINE OPERATOR yesterday - Trickle feeds via Dobbhoff, pt pulled Dobbhoff yesterday evening- not replaced - MAGNETIC RESONANCE TECHNOLOGIST called around 2130 for new left facial [...] sluggish. Slight left facial droop Neck: in Harvel collar Respiratory: unlabored on room air CV: [...] likely 2/2 AMS & delirium - Failed QUILTING MACHINE OPERATOR eval 09/19 & 09/20, made NPO & dobhoff reinserted 09/21 but pulled overnight - Per QUILTING MACHINE OPERATOR on 09/21, ok for therapeutic [...] - C-collar at all times, use TEST SKEIN WINDER when OOB - Follow-up with Neurosurgery on 10/21 with repeat X-rays #Blunt abdominal trauma #Splenic laceration S/p laparotomies x2. Fascia closed 09/02 Wound vac removed by patient, but wound remains duke n/dry/intact. Martin removed 09/17. #Left hemothorax Chest tube placed [...] when dysphagia & delirium improves Sherine Sarmiento, [facility] [place]g [phone] Associated attestation - Shiva Nieto MD,MPH - [...] Care & Acute Care Surgery [facility] [phone] Sami Black - 09/21/2017 10:25 PM PDTBrief [...] in the morning. Plan: -neuro checks; page [phone] for any decline in neurological examination -pain control -Hard C collar at all times and place TEST SKEIN WINDER prior to mobilizing OOB. Anticipated duration of Collar/TEST SKEIN WINDER is 12 weeks -repeat CT head for any new decline in neurological exam and page [phone] -NPO at midnight tonight -please hold tonight's planned dose of Lovenox -further recommendations in the morning Sami Black MD, PhD PGY-3 Resident Neurosurgery [id number] signed by Sami Black at 09/21/2017 10:50 [...] Provena placem ent 24hr events: - Failed QUILTING MACHINE OPERATOR eval again yest morning, continued [...] reactive. Dobbhoff tube in place Neck: in Harvel collar Respiratory: unlabored on room air CV: [...] likely 2/2 AMS & delirium - Failed QUILTING MACHINE OPERATOR eval 09/19 & 09/20, made NPO & dobhoff reinserted yesterday - Trickle feeds started this am at 20ml/hr, increase very slowly by 10ml every 12 hrs to go al of 75 due to hx of mesenteric hematomas and previous inability to tolerate TF - Per QUILTING MACHINE OPERATOR today, ok for therapeutic pureed [...] - C-collar at all times, use TEST SKEIN WINDER when OOB - Follow-up with Neurosurgery on 10/21 with repeat X-rays #Blunt abdominal trauma #Splenic laceration S/p laparotomies x2. Fascia closed 09/02 Wound vac removed by patient, but wound remains duke n/dry/intact. Martin removed 09/17. #Left hemothorax Chest tube placed [...] & delirium [place] [phone] Associated attestation - Fidelina Shields MD - 09/21/2017 9:36 PM PDTAttending: I saw and examined Berlin Temple ([id number]) with KESHAWN Alexander on mornin g rounds [...] enough to re-trial PO. Fidelina Shields MD [employer] Maker Division of Trauma, Critical Care and Acute Care Surgery Office: [phone] Pager: [phone] Sherine Sarmiento, AGACNP - 09/20/2017 7:41 AM [...] haldol given yesterday afternoon for agitation - QUILTING MACHINE OPERATOR paged to re-eval in afternoon after concern for aspiration, made NPO by QUILTING MACHINE OPERATOR - DARNELL SOLANO Current meds: [...] right pupil 3 and reactive Neck: in Harvel collar Respiratory: unlabored on room air CV: [...] thick/pureed d iet. Made NPO yesterday by QUILTING MACHINE OPERATOR after concern for aspiration. This is likely 2/2 waxing & wan ing delirium & AMS - QUILTING MACHINE OPERATOR re-eval today recommend continue NPO d/t overt clinical signs of aspiration - Place Dobbhoff tube and restart feeds, slowly progress to goal - Stop TPN when tolerating tube feeds - QUILTING MACHINE OPERATOR will follow closely, as his [...] - C-collar at all times, use TEST SKEIN WINDER when OOB - Follow-up with Neurosurgery on 10/21 with repeat X-rays #Blunt abdominal trauma #Splenic laceration S/p laparotomies x2. Fascia closed 09/02 Wound vac removed by patient, but wound remains duke n/dry/intact. Martin removed 09/17. #Left hemothorax Chest tube placed [...] dysphagia & delirium i mproves Sherine Sarmiento, [facility] Pg [phone] Associated attestation - Fidelina Shields MD - 09/20/2017 9:34 PM PDTAttending: I saw and examined Berlin Temple ([id number]) with KESHAWN Alexander on mornin g rounds [...] dispo planning when able. Fidelina Shields MD [employer] Division of Trauma, Critical Care and Acute Care Surgery Office: [phone] Pager: [phone] Mary Medrano MD,MPH - 09/19/2017 6:22 AM [...] downgraded from thin to thick liquids by QUILTING MACHINE OPERATOR Current meds: I have independently [...] intact, small Right fluctuant pseudomeningocele Neck: in Harvel collar Respiratory: unlabored on room air CV: [...] DHT on09/19. - Cleared for diet by QUILTING MACHINE OPERATOR, tolerating purees, 749 Calories yesterday - Restart Calorie count: if taking >700 again will be OK for full po diet, otherwise replac e DHT and restart TF - Stop TPN tomorrow regardless - Still considering repeat CT abdomen/pelvis #Dysphagia DHTreplaced overnight 09/07. TF held due to emesis and possible ileus, aspiration risk. DH T pulled overnight on 09/18 - QUILTING MACHINE OPERATOR as able Resolved or chronic [...] - C-collar at all times, use TEST SKEIN WINDER when OOB - Follow-up with Neurosurgery on [...] M.D., M.P.H. Neurological Surgery Resident PGY-1 Pager: [phone] Associated attestation - Fidelina Shields MD - 09/19/2017 1:36 PM PDTAttending: I saw and examined Berlin Temple ([id number]) with the residents on morning rounds 09/19/17 and agree with the assessment and plan as outlined in this note and participated in the plan aashish of care. Improving po intake, will titrate TPN. Plan to DC TPN tomorrow and transition to PO vs PO + TF depending on calorie counts. Once of restraints will begin looking for placement. Fidelina Shields MD [employer] Division of Trauma, Critical Care and Acute Care Surgery Office: [phone] Pager: [phone] Mary Medrano MD,MPH - 09/18/2017 6:17 AM [...] fascial closure, Provena placem ent 24hr events: Martin removed yesterday Small emesis overnight, nausea resolved [...] fluctuant pseudomeningocele,Dobhoff tubein p lace Neck: in Harvel collar Respiratory: unlabored on room air CV: [...] holding TF - Cleared for diet by QUILTING MACHINE OPERATOR, tolerating small quantities of purees - Will need repeat CT A/P within 1-2 days #Hypervolemia I&O approaching even. Appears to have been auto-diuresing. - Continue to monitor urine output - Monitor electrolytes, replete prn #Dysphagia DHTreplaced overnight 09/07. TF held due to emesis and possible ileus, aspiration risk. - QUILTING MACHINE OPERATOR as able #C7 bilateral lamina fractures #C6-T2 spinous process fractures Neurosurgery consulted. Non-operative management. Upright cervical X-rays completed on 09/14 . - C-collar at all times, use TEST SKEIN WINDER when OOB - Follow-up with Neurosurgery on [...] M.D., M.P.H. Neurological Surgery Resident PGY-1 Pager: [phone] signed by Fidelina Shields MD at 09/19/2017 3:58 PM PDT Associated attestation - Fidelina Shields MD - 09/19/2017 3:58 PM PDTAttending: I saw and examined Berlin Temple ([id number]) with the residents on morning rounds 09/18/17 and agree with the assessment and plan as outlined in this note and participated in the plan aashish of care. Fidelina Shields MD [employer] Division of Trauma, Critical Care and Acute Care Surgery Office: [phone] Pager: [phone] Mary Medrano MD,MPH - 09/17/2017 6:26 AM [...] fluctuant pseudomeningocele,Dobhoff tubein p lace Neck: in Harvel collar Respiratory: unlabored on room air CV: [...] holding TF - Cleared for diet by QUILTING MACHINE OPERATOR, tolerating small quantities of purees #Hypervolemia I&O approaching even. Appears to have been auto-diuresing. - Continue to monitor urine output - Monitor electrolytes, replete prn #Dysphagia DHTreplaced overnight 09/07. TF held due to emesis and possible ileus, aspiration risk. - QUILTING MACHINE OPERATOR as able #C7 bilateral lamina fractures #C6-T2 spinous process fractures Neurosurgery consulted. Non-operative management. Upright cervical X-rays completed on 09/14 . - C-collar at all times, use TEST SKEIN WINDER when OOB - Follow-up with Neurosurgery on [...] by patient, but wound remains duke n/dry/intact. Martin removed 09/17. #Left hemothorax Chest tube placed [...] M.D., M.P.H. Neurological Surgery Resident PGY-1 Pager: [phone] signed by Fidelina Shields MD at 09/17/2017 2:29 PM PDT Associated attestation - Fidelina Shields MD - 09/17/2017 2:29 PM PDTAttending: I saw and examined Berlin Temple ([id number]) with the residents on morning rounds 09/17/17 [...] repeat C T abdomen/pelvis. Fidelina Shields MD [employer] Maker Division of Trauma, Critical Care and Acute Care Surgery Office: [phone] Pager: [phone] Venita Pruitt PA-C - 09/16/2017 6:45 AM [...] HEENT: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 + + + + + [...] DEPT OF | [address] | [place], [place] | | | CARDIOLOGY | [address] | [address] | | + + + + + [...] [facility] | [address] | [place] [address] | | | NATALEE WORTHINGTON | VILMA [...] [place], [place] | | | CARDIOLOGY | [facility] | [address] | | + + + + + [...] | | | LABORATORY | | | [facility] | | | SERVICES, | | | [...] | + + + + + | [facility] | [address] | [place] [address] | | | NATALEE WORTHINGTON | VILMA [...] | + + + + + | [facility] | [address] | [place] [address] | | | SERVICES, NATALEE | VILMA [...] DEPT OF | [address] | [place], [place] | | | CARDIOLOGY | [address] | [address] | | + + + + + [...] | + + + + + | [facility] | [address] | [place] [address] | | | SERVICES, CORE | VILMA [...] | | | LABORATORY | | | [facility] | | | SERVICES, | | | [...] | + + + + + | [facility] | [address] | [place] [address] | | | SERVICES, NATALEE | VILMA [...] | | | | | Zaida SILVER- ORDoroteo Lorraine | | | | [...] + | [facility] - | [address] | [place] [address] | | | [place] | | | [...] Note | + + | Service Account, [email or web address] In Interface - 11/12/2017 1:46 PM PDT [...] DEPT OF | [address] | [place], [place] | | | CARDIOLOGY | [address] | [address] | | + + + + + [...] presented. | | | |Final signature: Mason Sanchze MD 11/12/2017 12:09 PM | |Preliminary: Patrick [...] [facility] | [address] | [place] [address] | | | SERVICES, CORE | VILMA [...] + | [facility] - | [address] | [place] [address] | | | [place] | | | [...] | + + + + + | [facility] DEPT OF | [address] | [place], [place] | | | CARDIOLOGY | [address] | [address] | | + + + + + [...] | + + + + + | [facility] | [address] | [place] [address] | | | NATALEE WORTHINGTON | VILMA [...] + | [facility] - | [address] | [place] [address] | | | [place] | | | [...] [facility] | [address] | [place] [address] | | | NATALEE WORTHINGTON | VILMA [...] | + + + + + | [facility] | [address] | [place] [address] | | | SERVICES, CORE | VILMA [...] [facility] | [address] | [place] [address] | | | SERVICES, CORE | P[address] [...] | | | LABORATORY | | | [facility] | | | SERVICES, | | | [...] | + + + + + | [facility] | [address] | [place] [address] | | | NATALEE WORTHINGTON | VILMA [...] [facility] | [address] | [place] [address] | | | NATALEE WORTHINGTON | PARK [...] | + + + + + | [facility] | [address] | [place] [address] | | | SERVICES, CORE | PARK [...] | | | LABORATORY | | | [facility] | | | SERVICES, | | | [...] | + + + + + | [facility] | [address] | [place] [address] | | | SERVICES, CORE | [address] | | | + + + + + 12 LEAD ECG (11/10/2017 10:59 AM PDT) + + + + + + | Component | Value | Ref Range | Performed | Pathologist | | | | | At | Signature | + + + + + + | VENTRICULAR | 58 | bpm | [facility] DEPT | | | RATE | [...] [facility] OF | [address] | [place], [place] | | | CARDIOLOGY | [address] | [address] | | + + + + + [...] | + + + + + | [facility] | [address] | [place] [address] | | | SERVICES, CORE | VILMA [...] | | | LABORATORY | | | [facility] | | | SERVICES, | | | [...] [facility] | [address] | [place] [address] | | | SERVICES, CORE | PARK [...] [facility] | [address] | [place] [address] | | | SERVICES, CORE | PARK [...] | | | LABORATORY | | | [facility] | | | SERVICES, | | | [...] the MDRD equation recommended by the | [facility] | | National Kidney Disease Education [...] | + + + + + | [facility] | [address] | [place] [address] | | | ELIN, NATALEE | VILMA [...] [facility] | [address] | [place] [address] | | | NATALEE WORTHINGTON | VILMA [...] | | | LABORATORY | | | [facility] | | | SERVICES, | | | [...] | + + + + + | [facility] | [address] | [place] [address] | | | SERVICES, CORE | VILMA [...] DEPT OF | [address] | [place], [place] | | | CARDIOLOGY | [address] | [address] | | + + + + + [...] | [facility] | [address] | [place], [place] | | | CARDIOLOGY | [address] | [address] | | + + + + + [...] | | | LABORATORY | | | [facility] | | | SERVICES, | | | [...] | + + + + + | [facility] | [address] | [place] [address] | | | SERVICES, CORE | VILMA [...] | + + + + + | [facility] | [address] | [place] [address] | | | SERVICES, CORE | PARK [...] + + + + | PRODUCT | [id number] | | [facility] | | | UNIT [...] + + + + | EXPIRATION | [id number] | | [facility] | | | DATE [...] + + + + | BLOOD | [id number] | | [facility] | | | PRODUCT [...] | + + + + + | [facility] | [address] | [place] [address] | | | SERVICES, | [address] [...] + + + + | PRODUCT | [id number] | | [facility] | | | UNIT [...] + + + + | EXPIRATION | [id number] | | [facility] | | | DATE [...] + + + + | BLOOD | [id number] | | [facility] | | | PRODUCT [...] | + + + + + | [facility] | [address] | [place] [address] | | | SERVICES, | [address] [...] [facility] | [address] | [place] [address] | | | NATALEE WORTHINGTON | VILMA [...] | + + + + + | [facility] | [address] | [place] [address] | | | SERVICES, CORE | [address] [...] | | | LABORATORY | | | [facility] | | | SERVICES, | | | [...] + + + + + | [facility] | [address] | [place] [address] | | | SERVICES, NATALEE | [address] | | | + + + + + OPERATION RECORD (11/06/2017 12:27 AM PDT) + + | Procedure Note | + + | Magdiel Stock MD - 11/06/2017 12:27 AM PDT Date of Service: 11/05/2017 Attending | | Surgeon: Magdiel Stock MD Financial Sales Consultant(s): Rg Aiken MD | | Preoperative [...] head was placed in a horseshoe head porter baggage with his C-collar still | | attached [...] the incision down to the cranium. Once [place] | | skull was reached circumferentially around the prior incision, a #1 Seymour was used | | to subperiosteally dissect [...] for this encounter.Sonal Nunez, | | [id number] [place], [place] | | [id number] Orina, MDJB/TAHIRLDD: 11/05/2017 20:38:01DT: 11/06/2017 | | 00:27:33Etienne #: [id number] | |HATTIE/DUC | | | | | | /[id number] | + + CT HEAD WO CONTRAST [...] Surgeon: Magdiel | | | MD [facility] Financial Sales Consultant: Rg Aiken MD Pre-op Diagnosis: | [...] PGY-4 Neurological Surgery Pager | | | [phone] | | + + + CAPILLARY BLOOD [...] [facility] | [address] | [place], [place] | | | GLORIA GENAO OF [facility] | [address] | [address] | | | TESTS | | | [...] [facility] | [address] | [place], [place] | | | GLORIA GENAO OF CARE | [address] | [address] | | | TESTS | | | [...] Note | + + | Service Account, ECO2 Plastics Res In Interface - 11/05/2017 11:31 AM [...] | + + + + + | [facility] | [address] | [place] [address] | | | SERVICES, CORE | PARK [...] [facility] | [address] | [place] [address] | | | SERVICES, CORE | PARK [...] | | | LABORATORY | | | [facility] | | | SERVICES, | | | [...] the MDRD equation recommended by the | [facility] | | National Kidney Disease Education [...] | + + + + + | [facility] | [address] | [place] [address] | | | SERVICES, CORE | PARK [...] | + + + + + | [facility] | [address] | [place] [address] | | | ELIN, NATALEE | [address] [...] + + + + | PRODUCT | [id number] | | [facility] | | | UNIT [...] + + + + | EXPIRATION | [id number] | | [facility] | | | DATE [...] + + + + | BLOOD | [id number] | | [facility] | | | PRODUCT [...] [facility] | [address] | [place] [address] | | | SERVICES, | [address] [...] + + + + | PRODUCT | [id number] | | [facility] | | | UNIT [...] + + + + | EXPIRATION | [id number] | | [facility] | | | DATE [...] + + + + | BLOOD | [id number] | | [facility] | | | PRODUCT [...] | + + + + + | [facility] | [address] | [place] [address] | | | SERVICES, | [address] [...] | + + + + + | [facility] | [address] | [place] [address] | | | NATALEE WORTHINGTON | VILMA [...] [facility] | [address] | [place] [address] | | | SERVICES, | [address] [...] | + + + + + | [facility] | [address] | [place] [address] | | | SERVICES, | [address] [...] | + + + + + | [facility] | [address] | [place] [address] | | | SERVICES, CORE | VILMA [...] + | [facility] | [address] | [place], [place] | | | CARDIOLOGY | [address] | [address] | | + + + + + [...] | + + + + + | [facility] | [address] | [place] [address] | | | SERVICES, CORE | VILMA [...] | + + + + + | [facility] | [address] | [place] [address] | | | SERVICES, CORE | [address] [...] + | [facility] - | [address] | [place] [address] | | | [place] | | | | + + + [...] | + + + + + | [facility] | [address] | [place] [address] | | | SERVICES, CORE | VILMA [...] [facility] | [address] | [place] [address] | | | SERVICES, CORE | [address] [...] | | | LABORATORY | | | [facility] | | | SERVICES, | | | [...] | + + + + + | [facility] | [address] | [place] [address] | | | NATALEE WORTHINGTON | VILMA [...] + | [facility] | [address] | [place] [address] | | | NATALEE WORTHINGTON | VILMA [...] | + + + + + | [facility] | [address] | [place] [address] | | | SERVICES, CORE | [address] [...] | | | LABORATORY | | | [facility] | | | SERVICES, | | | [...] | + + + + + | [facility] | [address] | [place] [address] | | | ELIN, NATALEE | [address] | | | + + + + + MAGNESIUM, PLASMA (11/02/2017 6:14 AM PDT) + +-------+ + + + | Component | Value | Ref Range | Performed | Pathologist | | | | | At | Signature | + +-------+ + + + | MAGNESIUM,P | 1.9 | 1.6 - 2.6 mg/dL | [facility] | | | L[facility] | | | [...] [facility] | [address] | [place] [address] | | | SERVICES, CORE | [address] [...] | | | LABORATORY | | | [facility] | | | SERVICES, | | | [...] | + + + + + | [facility] | [address] | [place] [address] | | | ELIN, NATALEE | VILMA [...] DEPT OF | [address] | [place], [place] | | | CARDIOLOGY | [address] | [address] | | + + + + + [...] [facility] | [address] | [place] [address] | | | SERVICES, CORE | [address] [...] | | | LABORATORY | | | [facility] | | | SERVICES, | | | [...] | + + + + + | [facility] | [address] | [place] [address] | | | NATALEE WORTHINGTON | VILMA [...] DEPT OF | [address] | [place], [place] | | | CARDIOLOGY | [address] | [address] | | + + + + + [...] | | | LABORATORY | | | [facility] | | | SERVICES, | | | [...] | + + + + + | [facility] | [address] | [place] [address] | | | SERVICES, NATALEE | VILMA [...] | + + + + + | [facility] | [address] | [place] [address] | | | SERVICES, CORE | VILMA [...] [facility] | [address] | [place], [place] | | | GLORIA GENAO OF [facility]ARE | [address] | [address] | | | TESTS | | | [...] | + + + + + | [facility] | [address] | [place] [address] | | | SERVICES, NATALEE | VIL[address] [...] | | | LABORATORY | | | [facility] | | | SERVICES, | | | [...] | + + + + + | [facility] | [address] | [place] [address] | | | SERVICES, CORE | VILMA [...] | | + +---------+ + + | [facility] RAD[facility] | | | | | [facility] | | | | + +---------+ [...] [facility] | [address] | [place], [place] | | | [facility] | [address] | [address] | | | TESTS | | | [...] [facility] | [address] | [place] [address] | | | SERVICES, CORE [...] | | | LABORATORY | | | [facility] | | | SERVICES, | | | [...] | + + + + + | [facility] | [address] | [place] [address] | | | SERVICES, NATALEE | VILMA [...] - [facility] | [address] | [place], [place] | | | GLORIA GENAO OF [facility] | [address] | [address] | | | TESTS | | | [...] DEPT OF | [address] | [place], [place] | | | CARDIOLOGY | [address] | [address] | | + + + + + [...] [facility] | [address] | [place], [place] | | | GLORIA GENAO OF CARE | [address] | [address] | | | TESTS | | | [...] - [facility] | [address] | [place], [place] | | | [facility] | [address] | [address] | | | TESTS | | | [...] | + + + + + | [facility] | [address] | [place] [address] | | | SERVICES, CORE | VILMA [...] + | [facility] - | [address] | [place] [address] | | | [place] | | | [...] [facility] | [address] | [place] [address] | | | SERVICES, CORE | VILMA [...] [facility] | [address] | [place] [address] | | | SERVICES, CORE | PARK [...] | + + + + + | [facility] | [address] | [place] [address] | | | SERVICES, NATALEE | VILMA [...] | | | LABORATORY | | | [facility] | | | SERVICES, | | | [...] [facility] | [address] | [place] [address] | | | SERVICES, CORE | PARK [...] | + + + + + | [facility] | [address] | [place] [address] | | | SERVICES, CORE | VILMA [...] (H) | 70 - 99 mg/dL | [facility] - | | | GLUCOSE, | [...] [facility] | [address] | [place], [place] | | | GLORIA GENAO OF CARE | [address] | [address] | | | TESTS | | | [...] [facility] | [address] | [place], [place] | | | GLORIA GENAO OF CARE | [address] | [address] | | | TESTS | | | [...] At | + + + | EXAM: KS CHEST PICC LINE CHECK HISTORY: picc done [...] Interface - 10/27/2017 6:29 PM PDT EXAM: [place] CHEST | | PICC LINE CHECK HISTORY: [...] TPN Procedure | | | location: Unit:[facility] Room: 4 Providers: Attending name: [...] | | patient, procedure, equipment, learning support assistant and site/side marked as | [...] vein. Catheter lot number: | | | [id number] with a length of 55 cm was [...] [facility] | [address] | [place], [place] | | | JOHN GENAO | [facility] | [address] | | | TESTS | | | [...] DEPT OF | [address] | [place], [place] | | | CARDIOLOGY | [address] | [address] | | + + + + + [...] [facility] | [address] | [place], [place] | | | [place] [facility] | [address] | [address] | | | TESTS | | | [...] [facility] | [address] | [place] [address] | | | SERVICES, CORE | PARK [...] | | | LABORATORY | | | [facility] | | | SERVICES, | | | [...] | + + + + + | [facility] | [address] | [place] [address] | | | NATALEE WORTHINGTON | VILMA [...] MARKHRISAM | [address] | [place], [place] | | | GLORIA GENAO OF CARE | [address] | [address] | | | TESTS | | | [...] PICKETT | [address] | [place], [place] | | | [facility] CARE | [address] | [address] | | | TESTS | | | [...] MARQUAM | [address] | [place], [place] | | | GLORIA GENAO OF CARE | [address] | [address] | | | TESTS | | | [...] | + + + + + | [facility] | [address] | [place] [address] | | | SERVICES, CORE | PARK [...] | | | LABORATORY | | | [facility] | | | SERVICES, | | | [...] | + + + + + | [facility] | [address] | [place] [address] | | | SERVICES, CORE | VILMA [...] (H) | 70 - 99 mg/dL | [facility] - | | | GLUCOSE, | [...] PIYUSH | [address] | [place], [place] | | | GLORIA GENAO OF GM | [facility] | [address] | | | TESTS | | | [...] | | | LABORATORY | | | [facility] | | | SERVICES, | | | [...] | + + + + + | [facility] | [address] | [place] [address] | | | SERVICES, CORE | VILMA [...] MARQUAM | [address] | [place], [place] | | | [facility]ARE | [address] | [address] | | | TESTS | | | [...] DEPT OF | [address] | [place], [place] | | | CARDIOLOGY | [facility] | [address] | | + + + + + [...] PICKETT | [address] | [place], [place] | | | GLORIA GENAO OF [facility] | [address] | [address] | | | TESTS | | | [...] + + | SELENA GEET OF | [address] | [place], [place] | | | CARDIOLOGY | [address] | [address] | | + + + + + [...] | + + + + + | [facility] | [address] | [place] [address] | | | SERVICES, CORE | VILMA [...] + | [facility] | [address] | [place] [address] | | | [place] | | | [...] | + + + + + | [facility] | [address] | [place] [address] | | | SERVICES, NATALEE | VILMA [...] | + + + + + | [facility] | [address] | [place] [address] | | | SERVICES, CORE | [address] | | | + + + + + TRIGLYCERIDES, PLASMA (10/24/2017 4:45 PM PDT) + +-------+ + + + | Component | Value | Ref Range | Performed | Pathologist | | | | | At | Signature | + +-------+ + + + | TRIGLYCERID | 93 | <150 mg/dL | [facility] | | | ES | | | [...] [facility] | [address] | [place] [address] | | | SERVICES, CORE | PARK [...] | + + + + + | [facility] | [address] | [place] [address] | | | SERVICES, CORE | VILMA [...] [facility] | [address] | [place] [address] | | | SERVICES, CORE | VILMA [...] + | [facility] | [address] | [place] [address] | | | SERVICES, CORE | PARK [...] [facility] | [address] | [place] [address] | | | SERVICES, CORE | PARK [...] [facility] | [address] | [place] [address] | | | SERVICES, CORE | PARK [...] | + + + + + | [facility] | [address] | [place] [address] | | | SERVICES, CORE | VILMA [...] [facility] | [address] | [place] [address] | | | SERVICES, CORE | PARK [...] | | | LABORATORY | | | [facility] | | | SERVICES, | | | [...] the MDRD equation recommended by the | [facility] | | National Kidney Disease Education Program. [...] | + + + + + | [facility] | [address] | [place] [address] | | | ELIN, NATALEE | VILMA [...] | correct patient, procedure, equipment, learning support assistant and site/side | | | [...] | area Basilic vein. Catheter lot number: [id number] with a length of 55 | | [...] At | + + + | EXAM: KS CHEST 1 VIEW HISTORY: PICC placed-pt ready. [...] Interface - 10/24/2017 3:43 PM PDT EXAM: KS CHEST 1 | | VIEW HISTORY: PICC [...] [facility] | [address] | [place], [place] | | | [facility] | [address] | [address] | | | TESTS | | | [...] | | Surgical Critical Care, PGY7 Pager: [phone] | | + + + CAPILLARY BLOOD [...] MARQUAM | [address] | [place], [place] | | | [facility] | [address] | [address] | | | TESTS | | | [...] PIYUSH | [address] | [place], [place] | | | [facility] CARE | [address] | [address] | | | TESTS | | | [...] | | | LABORATORY | | | [facility] | | | SERVICES, | | | [...] the MDRD equation recommended by the | [facility] | | National Kidney Disease Education [...] | + + + + + | [facility] | [address] | [place] [address] | | | NATALEE WORTHINGTON | VILMA [...] [facility] | [address] | [place] [address] | | | NATALEE WORTHINGTON | VILMA [...] P[facility]T | [address] | [place], [place] | | | GLORIA GENAO OF GM | [address] | [address] | | | TESTS | | | [...] | + + + + + | [facility] | [address] | [place] [address] | | | SERVICES, CORE | VILMA [...] | | | LABORATORY | | | [facility] | | | SERVICES, | | | [...] | + + + + + | [facility] | [address] | [place] [address] | | | SERVICES, NATALEE | VILMA [...] + + | SELE[facility] GEET OF | [address] | [place], [place] | | | CARDIOLOGY | [address] | [address] | | + + + + + IR GASTROSTOMY TUBE EXCHANGE (10/22/2017 2:42 PM PDT) + + | Specimen | + + | | + + + + + | Narrative | Performed At | + + + | Procedure: Gastrostomy tube exchange Primary attending | [facility] | | nature photographer: Shade Goodwin M.D. Preoperative diagnosis: | RADIOLOGY VOICE | | Malfunctioning Gastrostomy tube Postoperative diagnosis: Same | RECOGNITION | | Operations: Operation 1. Removal of existing Gastrostomy tube | | | over a guide wire Operation 2. Placement of 24 Botswanan GABRIEL | | | gastrostomy over guide [...] a stiff glide wire the new 24 Botswanan gastrostomy tube was | | | inserted. [...] Procedure: | | Gastrostomy tube exchangePrimary attending nature photographer: Shade Goodwin | | BrynPreoperative diagnosis: Malfunctioning Gastrostomy tubePostoperative diagnosis: | | SameOperations:Operation 1. Removal of existing Gastrostomy tube over a guide | | wireOperation 2. Placement of 24 Botswanan GABRIEL gastrostomy over guide wireNo sedation was [...] glide wire the | | new 24 Botswanan gastrostomy tube was inserted. The position of [...] stiff g lide wire the new 24 Botswanan | |gastrostomy tube was inserted. The position [...] Note | + + | Service Account, ECO2 Plastics Res In Interface - 10/22/2017 10:34 AM [...] | | + +---------+ + + | [facility] | | | | | [...] + + | SELENA GEET OF | [address] | [place], [place] | | | CARDIOLOGY | [address] | [address] | | + + + + + [...] | + + + + + | [facility] | [address] | [place] [address] | | | SERVICESNATALEE | [address] [...] | | | LABORATORY | | | [facility] | | | SERVICES, | | | [...] | + + + + + | [facility] | [address] | [place] [address] | | | SERVICES, CORE | VILMA [...] + | [facility] DEPT OF | [address] | [place], [place] | | | CARDIOLOGY | [address] | [address] | | + + + + + [...] | | | LABORATORY | | | [facility] | | | SERVICES, | | | [...] | + + + + + | [facility] | [address] | [place] [address] | | | SERVICES, CORE | [address] [...] | + + + + + | [facility] | [address] | [place] [address] | | | SERVICES, CORE | VILMA [...] DEPT OF | [address] | [place], [place] | | | CARDIOLOGY | [address] | [address] | | + + + + + [...] | + + + + + | [facility] | [address] | [place] [address] | | | NATALEE WORTHINGTON | [address] [...] | | | LABORATORY | | | [facility] | | | SERVICES, | | | [...] | + + + + + | [facility] | [address] | [place] [address] | | | SERVICES, CORE | [address] | | | + + + + + 12 LEAD ECG (10/17/2017 9:34 AM PDT) + + + + + + | Component | Value | Ref Range | Performed | Pathologist | | | | | At | Signature | + + + + + + | VENTRICULAR | 58 | bpm | [facility] | | | RATE | [...] | + + + + + | [facility] | [address] | [place], [place] | | | CARDIOLOGY | [address] | [address] | | + + + + + [...] | | | LABORATORY | | | [facility] | | | SERVICES, | | | [...] [facility] | [address] | [place] [address] | | | SERVICES, CORE | PARK [...] [facility] | [address] | [place] [address] | | | SERVICES, CORE | VILMA [...] | [facility] | [address] | [place], [place] | | | CARDIOLOGY | [address] | [address] | | + + + + + [...] | | | LABORATORY | | | [facility] | | | SERVICES, | | | [...] the MDRD equation recommended by the | [facility] | | National Kidney Disease Education [...] [facility] | [address] | [place] [address] | | | SERVICES, CORE | P[address] [...] | + + + + + | [facility] | [address] | [place] [address] | | | SERVICES, CORE | VILMA [...] | | + +---------+ + + | [facility] | | | | | [facility] | | | | + +---------+ [...] DEPT OF | [address] | [place], [place] | | | CARDIOLOGY | [address] | [address] | | + + + + + CAPILLARY BLOOD GLUCOSE (NO CHG), POC (10/15/2017 6:01 AM PDT) + +---------+ + + + | Component | Value | Ref Range | Performed | Pathologist | | | | | At | Signature | + +---------+ + + + | BLOOD | 134 (H) | 70 - 99 mg/dL | [facility] - | | | GLUCOSE, | | [...] [facility] | [address] | [place], [place] | | | [facility] OF CARE | [facility] | [address] | | | TESTS | | | [...] | + + + + + | [facility] | [address] | [place] [address] | | | NATALEE WORTHINTGON | VILMA [...] Jorge [facility] | [address] | [place], [place] | | | GLORIA GENAO OF [facility] | [facility] | [address] | | | TESTS | | | [...] + + | [facility] DEPT OF | [address] | [place], [place] | | | CARDIOLOGY | [address] | [address] | | + + + + + [...] [facility] | [address] | [place] [address] | | | NATALEE WORTHINGTON | VILMA [...] | | | LABORATORY | | | [facility] | | | SERVICES, | | | [...] | + + + + + | [facility] | [address] | [place] [address] | | | SERVICES, CORE | VILMA [...] | + + + + + | [facility] | [address] | [place] [address] | | | SERVICES, CORE | VILMA [...] [facility] | [address] | [place], [place] | | | GLORIA GENAO OF CARE | [address] | [address] | | | TESTS | | | [...] - [facility] | [address] | [place], [place] | | | [place] [facility]INT OF CARE | [address] | [address] | | | TESTS | | | [...] | + + + + + | [facility] | [address] | [place] [address] | | | SERVICES, CORE | VILMA [...] | | | LABORATORY | | | [facility] | | | SERVICES, | | | [...] | + + + + + | [facility] | [address] | [place] [address] | | | NTAALEE WORTHINGTON | [address] | | | + + + + + OPERATION RECORD (10/12/2017 8:50 PM PDT) + + | Procedure Note | + + | Pilar Cotto MD - 10/12/2017 8:50 PM PDT Date of Service: 10/12/2017 | | Attending Surgeon: Chaz Munoz MD Financial Sales Consultant(s): Randell Dixon M.D., | | fellow. [...] saline. We then | | placed a 19-Botswanan drain deep into the abscess cavity, tracking [...] 10/12/2017 19:50:06DT: 10/12/2017 20:50:54Job #: | | [id number] | + + X-RAY PORTABLE CHEST 1 VIEW (10/12/2017 7:50 PM PDT) + + | Specimen | + + | | + + + + + | Narrative | Performed At | + + + | EXAM: KS CHEST 1 VIEW HISTORY: Evaluate endotracheal tube [...] Interface - 10/13/2017 9:04 AM PDT EXAM: KS CHEST 1 | | VIEW HISTORY: Evaluate [...] [facility] | [address] | [place], [place] | | | [place] OF [facility] | [address] | [address] | | | TESTS | | | [...] Note | + + | Service Account, ECO2 Plastics Res In Interface - 10/12/2017 5:05 PM [...] [facility] | [address] | [place] [address] | | | SERVICES, CORE | [address]ARK [...] | | | LABORATORY | | | [facility] | | | SERVICES, | | | [...] | + + + + + | [facility] | [address] | [place] [address] | | | SERVICES, CORE | [address] [...] [facility] | [address] | [place] [address] | | | NATALEE WORTHINGTON | VILMA [...] DEPT OF | [address] | [place], [place] | | | CARDIOLOGY | [address] | [address] | | + + + + + [...] + + | [facility]OR[facility] OF | [address] | [place], [place] | | | CARDIOLOGY | [address] | [address] | | + + + + + [...] | + + + + + | [facility] | [address] | [place] [address] | | | ELIN, CORE | [address] [...] [facility] | [address] | [place] [address] | | | SERVICES, CORE | [address] [...] | | | LABORATORY | | | [facility] | | | SERVICES, | | | [...] | + + + + + | [facility] | [address] | [place] [address] | | | NATALEE WORTHINGTON | [address] | | | + + + + + PROCEDURE NOTE (10/10/2017 10:00 PM PDT) + + + | Narrative | Performed At | + + + | Darius Link MD 10/12/2017 11:11 AM OPERATIVE REPORT | | | DATE OF OPERATION: 10/10/2017 ATTENDING SURGEON: 1. Dr. Munoz | | | TIRE DESIGN ENGINEER: 1. Darius Link MD INDICATIONS: Dysphagia | [...] | | | [place] [id number] Chief Resident | | | Neurosurgery | [...] [facility] | [address] | [place] [address] | | | SERVICES, CORE | [address] [...] | | | LABORATORY | | | [facility] | | | SERVICES, | | | [...] the MDRD equation recommended by the | [facility] | | National Kidney Disease Education [...] | + + + + + | [facility] | [address] | [place] [address] | | | SERVICES, CORE | [address] | | | + + + + + MAGNESIUM, PLASMA (10/10/2017 2:02 PM PDT) + +-------+ + + + | Component | Value | Ref Range | Performed | Pathologist | | | | | At | Signature | + +-------+ + + + | MAGNESIUM,P | 1.9 | 1.6 - 2.6 mg/dL | [facility] | | | LASMA | | [...] [facility] | [address] | [place] [address] | | | ELIN, NATALEE | [address] | | | + + + + + OPERATION RECORD (10/10/2017 12:40 PM PDT) + + | Procedure Note | + + | Magdiel Stock MD - 10/10/2017 12:40 PM PDT Date of Service: 10/10/2017 Attending | | Surgeon: Magdiel Stock MD Financial Sales Consultant(s): Cecilia Hernandez, | | . Preoperative Diagnoses: [...] | the note for this encounter.Sonal Nunez [facility] [id number] | | [place] [id number] Orina, MDFAH/MODLDD: | | 10/10/2017 11:52:15DT: 10/10/2017 12:40:41Job #: [id number] | | | | | |I was present for the critical portions of the procedure as described in the note for this encounter. | | | |Magdiel Stock MD | | | |Magdiel Stock MD | |[address] | |[address] | |[facility] | |[place] [address] | |[phone] | | | | | |Magdiel Stock MD | |JAYLAN/DUC | | | | | | /[id number] | + + X-RAY ABDOMEN 1 VIEW [...] + | [facility] | [address] | [place] [address] | | | [place] | | | [...] + | [facility] | [address] | [place] [address] | | | [place] | | | [...] + | [facility] | [address] | [place] [address] | | | [facility] | | | | + + [...] + | [facility] | [address] | [place] [address] | | | [place] | | | [...] + | [facility] | [address] | [place] [address] | | | [place] | | | [...] Gram Stain: No squamous epithelial cells | [place] | | Many polymorphonuclear cells No organisms seen | | + + + + + + + + | Performing | Address | City/State/Zipcode | Phone Number | | Organization | | | | + + + + + | [facility] | [address] | [place] [address] | | | [place] | | | [...] detected | [facility] - | | | [place] | + + + + + + + + | Performing | Address | City/State/Zipcode | Phone Number | | Organization | | | | + + + + + | [facility] | [address] | [place] [address] | | | [place] | | | | + + + [...] Gram Stain: No squamous epithelial cells | [place] | | Few polymorphonuclear cells No organisms seen | | + + + + + + + + | Performing | Address | City/State/Zipcode | Phone Number | | Organization | | | | + + + + + | [facility] - | [address] | [place] [address] | | | [place] | | | | + + + [...] + | [facility] | [address] | [place] [address] | | | [place] | | | [...] + | [facility] | [address] | [place] [address] | | | [place] | | | [...] + | [facility] | [address] | [place] [address] | | | [place] | | | | + + + [...] + | [facility] | [address] | [place] [address] | | | [place] | | | [...] + | [facility] | [address] | [place] [address] | | | [place] | | | [...] Gram Stain: No squamous epithelial cells | [place] | | Moderate polymorphonuclear cells No organisms seen | | + + + + + + + + | Performing | Address | City/State/Zipcode | Phone Number | | Organization | | | | + + + + + | [facility] | [address] | [place] [address] | | | [place] | | | | + + + [...] | + + + + + | [facility] | [address] | [place] [address] | | | [place] | | | | + + + [...] + | [facility] | [address] | [place] [address] | | | [place] | | | [...] Gram Stain: No squamous epithelial cells | [place] | | Moderate polymorphonuclear cells No organisms seen | | + + + + + + + + | Performing | Address | City/State/Zipcode | Phone Number | | Organization | | | | + + + + + | [facility] | [address] | [place] [address] | | | [place] | | | | + + + [...] | | Smear: AFB not detected | [facility] - | | | [place] | + + + + + + + + | Performing | Address | City/State/Zipcode | Phone Number | | Organization | | | | + + + + + | [facility] | [address] | [place] [address] | | | [place] | | | | + + + [...] | + + + + + | [facility] | [address] | [place] [address] | | | SERVICES, CORE | [address] [...] | + + + + + | [facility] | [address] | [place] [address] | | | NATALEE WORTHINGTON | [address] [...] | + + + + + | [facility] | [address] | [place] [address] | | | SERVICES, NATALEE | [address] [...] | | | LABORATORY | | | [facility] | | | SERVICES, | | | [...] | + + + + + | [facility] | [address] | [place] [address] | | | SERVICES, CORE | [address] | | | + + + + + 12 LEAD ECG (10/10/2017 2:08 AM PDT) + + + + + + | Component | Value | Ref Range | Performed | Pathologist | | | | | At | Signature | + + + + + + | VENTRICULAR | 117 | bpm | [facility] | | | RATE | [...] + + | [facility] | [address] | [place], [place] | | | CARDIOLOGY | [address] | [address] | | + + + + + [...] + + + + | PRODUCT | [id number] | | [facility] | | | UNIT [...] + + + + | EXPIRATION | [id number] | | [facility] | | | DATE [...] + + + + | BLOOD | [id number] | | [facility] | | | PRODUCT [...] [facility] | [address] | [place] [address] | | | SERVICES, | [address] [...] + + + + | PRODUCT | [id number] | | [facility] | | | UNIT [...] + + + + | EXPIRATION | [id number] | | [facility] | | | DATE [...] + + + + | BLOOD | [id number] | | [facility] | | | PRODUCT [...] [facility] | [address] | [place] [address] | | | SERVICES, | [address] [...] [facility] | [address] | [place] [address] | | | SERVICES, | [address] [...] | + + + + + | [facility] | [address] | [place] [address] | | | ELIN, | [address] [...] [facility] | [address] | [place] [address] | | | SERVICES, | [address] [...] | + + + + + | [facility] | [address] | [place] [address] | | | ELIN, NATALEE | V[place]MA [...] DEPT OF | [address] | [place], [place] | | | CARDIOLOGY | [address] | [address] | | + + + + + [...] [facility] | | | | | [facility] | | | | + +---------+ [...] - [facility] | [address] | [place], [place] | | | [facility] POINT OF CARE | [address] | [address] | | | TESTS | | | [...] | + + + + + | [facility] | [address] | [place] [address] | | | SERVICES, CORE | [address] [...] [facility] | [address] | [place] [address] | | | SERVICES, CORE | [address] [...] | | | LABORATORY | | | [facility] | | | SERVICES, | | | [...] the MDRD equation recommended by the | [facility] | | National Kidney Disease Education [...] | + + + + + | [facility] | [address] | [place] [address] | | | NATALEE WORTHINGTON | [address] [...] (H) | 70 - 99 mg/dL | [facility] - | | | GLUCOSE, | [...] [facility] | [address] | [place], [place] | | | GLORIA GENAO OF [facility] | [address] | [address] | | | TESTS | | | [...] [facility] | [address] | [place], [place] | | | GLORIA GENAO OF CARE | [facility] | [address] | | | TESTS | | | [...] [facility] | [address] | [place], [place] | | | GLORIA GENAO OF CARE | [facility] | [address] | | | TESTS | | | [...] (H) | 70 - 99 mg/dL | [facility] - | | | GLUCOSE, | [...] MARQUAM | [address] | [place], [place] | | | [facility] | [address] | [address] | | | TESTS | | | [...] + | SELENA PICKETT | [address] | [place], [place] | | | GLORIA GENAO OF GM | [facility] | [address] | | | TESTS | | | [...] | + + + + + | [facility] | [address] | [place] [address] | | | SERVICES, CORE | [address] | | | + + + + + MAGNESIUM, PLASMA (10/07/2017 5:05 AM PDT) + +-------+ + + + | Component | Value | Ref Range | Performed | Pathologist | | | | | At | Signature | + +-------+ + + + | MAGNESIUM,P | 2.1 | 1.6 - 2.6 mg/dL | [facility] | | | [facility] | | | [...] [facility] | [address] | [place] [address] | | | NATALEE WORTHINGTON | [facility] [...] | | | LABORATORY | | | [facility] | | | SERVICES, | | | [...] | + + + + + | [facility] | [address] | [place] [address] | | | SERVICES, NATALEE | [place] [...] MARQUAM | [address] | [place], [place] | | | [facility] | [address] | [address] | | | TESTS | | | [...] - PIYUSH | [address] | [place], [place] | | | [facility] | [address] | [address] | | | TESTS | | | [...] DEPT OF | [address] | [place], [place] | | | CARDIOLOGY | [address] | [address] | | + + + + + [...] PIYUSH | [address] | [place], [place] | | | GLORIA GENAO OF [facility] | [address] | [address] | | | TESTS | | | [...] | + + + + + | [facility] | [address] | [place] [address] | | | SERVICES, CORE | [address] | | | + + + + + MAGNESIUM, PLASMA (10/06/2017 7:25 AM PDT) + +-------+ + + + | Component | Value | Ref Range | Performed | Pathologist | | | | | At | Signature | + +-------+ + + + | MAGNESIUM,P | 2.0 | 1.6 - 2.6 mg/dL | [facility] | | | LASMA | | [...] [facility] | [address] | [place] [address] | | | SERVICES, NATALEE | [facility] [...] | | | LABORATORY | | | [facility] | | | SERVICES, | | | [...] | + + + + + | [facility] | [address] | [place] [address] | | | SERVICES, NATALEE | VILMA [...] PIYUSH | [address] | [place], [place] | | | GLORIA GENAO OF CARE | [facility] | [address] | | | TESTS | | | [...] MARQUAM | [address] | [place], [place] | | | GLORIA GENAO OF MG | [facility] | [address] | | | TESTS | | | [...] PICKETT | [address] | [place], [place] | | | CHADWICK POINT OF CARE | [address] | [address] | | | TESTS | | | [...] MARQUAM | [address] | [place], [place] | | | HILL, POINT OF CARE | [address] | [address] | | | TESTS | | | [...] DEPT OF | [address] | [place], [place] | | | CARDIOLOGY | [address] | [address] | | + + + + + [...] [facility] | [address] | [place] [address] | | | NATALEE WORTHINGTON | VILMA [...] | + + + + + | [facility] | [address] | [place] [address] | | | SERVICES, CORE | PARK [...] | | | LABORATORY | | | [facility] | | | SERVICES, | | | [...] | + + + + + | [facility] | [address] | [place] [address] | | | SERVICES, CORE | VILMA [...] PICKETT | [address] | [place], [place] | | | GLORIA GENAO OF GM | [facility] | [address] | | | TESTS | | | [...] MARQUAM | [address] | [place], [place] | | | GLORIA GENAO OF GM | [facility] | [address] | | | TESTS | | | [...] (H) | 70 - 99 mg/dL | [facility] - | | | GLUCOSE, | [...] MARQUAM | [address] | [place], [place] | | | GLORIA GENAO OF [facility] | [address] | [address] | | | TESTS | | | [...] PICKETT | [address] | [place], [place] | | | GLORIA GENAO OF CARE | [facility] | [address] | | | TESTS | | | [...] PIYUSH | [address] | [place], [place] | | | [facility]ICK POINT OF CARE | [facility] | [address] | | | TESTS | | | [...] [facility] | [address] | [place] [address] | | | SERVICES, CORE | PARK [...] [facility] | [address] | [place] [address] | | | SERVICES, CORE | PARK [...] | | | LABORATORY | | | [facility] | | | SERVICES, | | | [...] the MDRD equation recommended by the | [facility] | | National Kidney Disease Education Program. [...] | + + + + + | [facility] | [address] | [place] [address] | | | NATALEE WORTHINGTON | VILMA [...] MARQUAM | [address] | [place], [place] | | | [facility]ICK POINT OF CARE | [address] | [address] | | | TESTS | | | [...] PICKETT | [address] | [place], [place] | | | GLORIA GENAO OF CARE | [address] | [address] | | | TESTS | | | [...] [facility] | [address] | [place] [address] | | | SERVICES, CORE [...] by | | | | | | FIGMD,500 | | | | | | Rogelio Pickard, [facility] [place] | | | | | | [id number] | | | | | | [phone].[email or web address]. | | | | | | Gui [...] [facility] | [address] | [place], [place] | | | [facility] | | [phone] | | + + + + + [...] | + + + + + | [facility] | [address] | [place] [address] | | | SERVICES, CORE | VILMA [...] [facility] | [address] | [place] [address] | | | SERVICES, CORE | VILMA [...] modified from | [facility] | | original stereotyper helper's approved specifications. The performance | LABORATORY | | of the RADIOLOGY THERAPIST HIV Combo test, with or without confirmation, [...] | + + + + + | [facility] | [address] | [place] [address] | | | SERVICES, SPECIAL | PARK [...] MARQUAM | [address] | [place], [place] | | | GLORIA GENAO OF CARE | [address] | [address] | | | TESTS | | | [...] RAPHAELAM | [address] | [place], [place] | | | GLORIA GENAO OF [facility] | [facility] | [address] | | | TESTS | | | [...] | + + + + + | [facility] | [address] | [place] [address] | | | SERVICES, CORE | PARK [...] [facility] | [address] | [place] [address] | | | SERVICES, [facility] | [address] | [...] | | | LABORATORY | | | [facility] | | | SERVICES, | | | [...] | + + + + + | [facility] | [address] | [place] [address] | | | ELIN, NATALEE | VILMA [...] 96 | 70 - 99 mg/dL | [facility] - | | | GLUCOSE, | [...] PICKETT | [address] | [place], [place] | | | [facility] POINT OF CARE | [address] | [address] | | | TESTS | | | [...] PAWANQUAM | [address] | [place], [place] | | | GLORIA GENAO OF [facility] | [address] | [address] | | | TESTS | | | [...] DEPT OF | [address] | [place], [place] | | | CARDIOLOGY | [address] | [address] | | + + + + + [...] At | + + + | EXAM: KS CHEST 1 VIEW HISTORY: Evaluate PICC placement [...] Note | + + | Service Account, [email or web address] In Interface - 10/02/2017 2:07 PM PDT EXAM: KS CHEST 1 | | VIEW HISTORY: Evaluate [...] + | [facility] | [address] [facility] | [place], [place] | | | [facility] POINT OF CARE | [address] | [address] | | | TESTS | | | | + + + + + X-RAY PORTABLE CHEST 1 VIEW (10/02/2017 8:56 AM PDT) + + | Specimen | + + | | + + + + + | Narrative | Performed At | + + + | EXAM: KS CHEST 1 VIEW HISTORY: new leukocytosis, eval [...] Interface - 10/02/2017 10:27 AM PDT EXAM: KS CHEST 1 | | VIEW HISTORY: new [...] PICKETT | [address] | [place], [place] | | | GLORIA GENAO OF GM | [address] | [address] | | | TESTS | | | [...] [facility] | [address] | [place] [address] | | | NATALEE WORTHINGTON | VILMA [...] | + + + + + | [facility] | [address] | [place] [address] | | | NATALEE WORTHINGTON | PARK [...] | | | LABORATORY | | | [facility] | | | SERVICES, | | | [...] | + + + + + | [facility] | [address] | [place] [address] | | | SERVICES, CORE | VILMA [...] MARQUAM | [address] | [place], [place] | | | GLORIA GENAO OF CARE | [address] | [address] | | | TESTS | | | [...] SELENA PICKETT | [address] | [place], [place] | | | CHADWICK ELFIN COVE OF [facility] | [address] | [address] | | | TESTS | | | [...] Note | + + | Service Account, [employer] Res In Interface - 10/01/2017 2:15 PM [...] MARQUAM | [address] | [place], [place] | | | GLORIA GENAO OF GM | [address] | [address] | | | TESTS | | | [...] Note | + + | Service Account, [email or web address] In Interface - 10/01/2017 11:34 AM PDT [...] + + + | SELENA PICKETT | [address] | [place], [place] | | | GLORIA GENAO OF [facility] | [address] | [address] | | | TESTS | | | [...] [facility] | [address] | [place] [address] | | | NATALEE WORTHINGTON | VILMA [...] | + + + + + | [facility] | [address] | [place] [address] | | | NATALEE WORTHINGTON | [address]ARK [...] | | | LABORATORY | | | [facility] | | | SERVICES, | | | [...] | + + + + + | [facility] | [address] | [place] [address] | | | SERVICES, CORE | PARK [...] MARQUAM | [address] | [place], [place] | | | GLORIA GENAO OF CARE | [address] | [address] | | | TESTS | | | [...] RAPHAELAM | [address] | [place], [place] | | | [facility] POINT OF CARE | [address] | [address] | | | TESTS | | | [...] DEPT OF | [address] | [place], [place] | | | CARDIOLOGY | [address] | [address] | | + + + + + [...] PICKETT | [address] | [place], [place] | | | GLORIA GENAO OF GM | [facility] | [address] | | | TESTS | | | [...] PIYUSH | [address] | [place], [place] | | | [facility] POINT OF CARE | [facility] | [address] | | | TESTS | | | [...] | + + + + + | [facility] | [address] | [place] [address] | | | SERVICES, CORE | VILMA [...] [facility] | [address] | [place] [address] | | | SERVICES, CORE | PARK [...] | | | LABORATORY | | | [facility] | | | SERVICES, | | | [...] the MDRD equation recommended by the | [facility] | | National Kidney Disease Education [...] | + + + + + | [facility] | [address] | [place] [address] | | | SERVICES, CORE | PARK [...] - MARQUAM | [address] | [place], [place] | | | [facility] POINT OF CARE | [address] | [address] | | | TESTS | | | [...] PICKETT | [address] | [place], [place] | | | [facility] POINT OF CARE | [address] | [address] | | | TESTS | | | [...] MARQUAM | [address] | [place], [place] | | | [facility] POINT OF CARE | [address] | [address] | | | TESTS | | | [...] DEPT OF | [address] | [place], [place] | | | CARDIOLOGY | [address] | [address] | | + + + + + [...] PIYUSH | [address] | [place], [place] | | | GLORIA GENAO OF GM | [address] | [address] | | | TESTS | | | [...] | + + + + + | [facility] | [address] | [place] [address] | | | SERVICES, CORE | PARK [...] | | | LABORATORY | | | [facility] | | | SERVICES, | | | [...] [facility] | [address] | [place] [address] | | | SERVICES, CORE | PARK [...] | + + + + + | [facility] | [address] | [place] [address] | | | NATALEE WORTHINGTON | VILMA [...] MARQUAM | [address] | [place], [place] | | | [facility] POINT OF CARE | [address] | [address] | | | TESTS | | | [...] MARQUAM | [address] | [place], [place] | | | GLORIA GENAO OF GM | [facility] | [address] | | | TESTS | | | [...] PICKETT | [address] | [place], [place] | | | GLORIA GENAO OF CARE | [address] | [address] | | | TESTS | | | [...] DEPT OF | [address] | [place], [place] | | | CARDIOLOGY | [address] | [address] | | + + + + + CAPILLARY BLOOD GLUCOSE (NO CHG), POC (09/28/2017 6:47 AM PDT) + +---------+ + + + | Component | Value | Ref Range | Performed | Pathologist | | | | | At | Signature | + +---------+ + + + | BLOOD | 147 (H) | 70 - 99 mg/dL | [facility] - | | | GLUCOSE, | [...] PICKETT | [address] | [place], [place] | | | [facility] POINT OF CARE | [address] | [address] | | | TESTS | | | [...] [facility] | [address] | [place] [address] | | | NATALEE WORTHINGTON | VILMA [...] | + + + + + | [facility] | [address] | [place] [address] | | | SERVICES, CORE | PARK [...] | | | LABORATORY | | | [facility] | | | SERVICES, | | | [...] | + + + + + | [facility] | [address] | [place] [address] | | | SERVICES, CORE | VILMA [...] (H) | 70 - 99 mg/dL | [facility] - | | | GLUCOSE, | [...] PICKETT | [address] | [place], [place] | | | GLORIA GENAO OF GM | [facility] | [address] | | | TESTS | | | [...] + | [facility] | [address] [facility] [address] | [place], [place] | | | [facility] POINT OF CARE | [address] | [address] | | | TESTS | | | [...] MARQUAM | [address] | [place], [place] | | | GLORIA GENAO OF GM | [address] | [address] | | | TESTS | | | [...] RAPHAELAM | [address] | [place], [place] | | | [place] POINT OF CARE | [address] | [address] | | | TESTS | | | [...] | + + + + + | [facility] | [address] | [place] [address] | | | SERVICES, CORE | PARK [...] [facility] | [address] | [place] [address] | | | SERVICES, CORE | PARK [...] | | | LABORATORY | | | [facility] [place] | | | SERVICES, | | | [...] the MDRD equation recommended by the | [facility] | | National Kidney Disease Education [...] | + + + + + | [facility] | [address] | [place] [address] | | | NATALEE WORTHINGTON | VILMA [...] (H) | 70 - 99 mg/dL | [facility] - | | | GLUCOSE, | [...] PICKETT | [address] | [place], [place] | | | [facility] POINT OF CARE | [address] | [address] | | | TESTS | | | [...] PIYUSH | [address] | [place], [place] | | | GLORIA GENAO OF GM | [address] | [address] | | | TESTS | | | [...] DEPT OF | [address] | [place], [place] | | | CARDIOLOGY | [address] | [address] | | + + + + + [...] PICKETT | [address] | [place], [place] | | | GLORIA GENAO OF CARE | [address] | [address] | | | TESTS | | | [...] MARQUAM | [address] | [place], [place] | | | GLORIA GENAO OF CARE | [address] | [address] | | | TESTS | | | [...] PIYUSH | [address] | [place], [place] | | | BRIGHTON ELFIN COVE OF [facility] | [address] | [address] | | | TESTS | | | [...] | + + + + + | [facility] | [address] | [place] [address] | | | SERVICES, CORE | PARK [...] [facility] | [address] | [place] [address] | | | SERVICES, CORE | PARK [...] | | | LABORATORY | | | [facility] | | | SERVICES, | | | [...] the MDRD equation recommended by the | [facility] | | National Kidney Disease Education [...] | + + + + + | [facility] | [address] | [place] [address] | | | SERVICES, CORE | VILMA [...] (H) | 70 - 99 mg/dL | [facility] - | | | GLUCOSE, | [...] PICKETT | [address] | [place], [place] | | | [place] POINT OF [facility] | [address] | [address] | | | TESTS | | | [...] | + + + + + | [facility] | [address] | [place] [address] | | | SERVICES, CORE | VILMA [...] [facility] | [address] | [place] [address] | | | SERVICES, CORE | PARK [...] | | | LABORATORY | | | [facility] | | | SERVICES, | | | [...] the MDRD equation recommended by the | [facility] | | National Kidney Disease Education Program. [...] [facility] | [address] | [place] [address] | | | NATALEE WORTHINGTON | VILMA [...] DEPT OF | [address] | [place], [place] | | | CARDIOLOGY | [address] | [address] | | + + + + + [...] Note | + + | Service Account, [employer] Res In Interface - 09/24/2017 4:09 PM [...] | + + + + + | [facility] | [address] | [place] [address] | | | SERVICES, CORE | VILMA [...] | | | LABORATORY | | | [facility] | | | SERVICES, | | | [...] [facility] | [address] | [place] [address] | | | SERVICES, CORE [...] | + + + + + | [facility] | [address] | [place] [address] | | | SERVICES, CORE | PARK [...] | + + + + + | [facility] | [address] | [place] [address] | | | NATALEE WORTHINGTON | VILMA [...] | Reference range change effective 12/11/16. | [facility] | | | LABORATORY | | | NATALEE WORTHINGTON | + + + + + + + + | Performing | Address | City/State/Zipcode | Phone Number | | Organization | | | | + + + + + | [facility] | [address] | [place] [address] | | | NATALEE WORTHINGTON | PARK [...] | | | LABORATORY | | | [facility] [place] | | | SERVICES, | | | [...] | + + + + + | [facility] | [address] | [place] [address] | | | SERVICES, CORE | VILMA [...] MARQUAM | [address] | [place], [place] | | | GLORIA GENAO OF CARE | [address] | [address] | | | TESTS | | | [...] SELENA PICKETT | [address] | [place], [place] | | | [facility] | [address] | [address] | | | TESTS | | | [...] | + + + + + | [facility] | [address] | [place] [address] | | | SERVICES, CORE | VILMA [...] [facility] | [address] | [place], [place] | | | CARDIOLOGY | [address] | [address] | | + + + + + [...] | + + + + + | [facility] | [address] | [place] [address] | | | SERVICES, CORE | [address] | | | + + + + + MAGNESIUM, PLASMA (09/22/2017 5:48 AM PDT) + +-------+ + + + | Component | Value | Ref Range | Performed | Pathologist | | | | | At | Signature | + +-------+ + + + | MAGNESIUM,P | 1.9 | 1.6 - 2.6 mg/dL | [facility] | | | LISA | | | [...] [facility] | [address] | [place] [address] | | | SERVICES, NATALEE | VILMA [...] | | | LABORATORY | | | [facility] | | | SERVICES, | | | [...] | + + + + + | [facility] | [address] | [place] [address] | | | SERVICES, CORE | VILMA [...] MAR[facility]AM | [address] | [place], [place] | | | GLORIA GENOA OF CARE | [facility] | [address] | | | TESTS | | | [...] SELENA MCNAIR | [address] | [place] [address] | | | SERVICES, NAATLEE | VILMA [...] | + + + + + | [facility] | [address] | [place] [address] | | | SERVICES, CORE | PARK [...] | | | LABORATORY | | | [facility] | | | SERVICES, | | | [...] the MDRD equation recommended by the | [facility] | | National Kidney Disease Education [...] | + + + + + | [facility] | [address] | [place] [address] | | | SERVICES, CORE | VILMA [...] Note | + + | Service Account, [email or web address] In Interface - 09/20/2017 6:25 PM PDT [...] DEPT OF | [address] | [place], [place] | | | CARDIOLOGY | [address] | [address] | | + + + + + [...] | + + + + + | [facility] | [address] | [place] [address] | | | SERVICES, CORE | [address] | | | + + + + + MAGNESIUM, PLASMA (09/20/2017 5:32 AM PDT) + +-------+ + + + | Component | Value | Ref Range | Performed | Pathologist | | | | | At | Signature | + +-------+ + + + | MAGNESIUM,P | 2.2 | 1.6 - 2.6 mg/dL | [facility] | | | LASMA | | [...] [facility] | [address] | [place] [address] | | | SERVICES, NATALEE | VILMA [...] | | | LABORATORY | | | [facility] | | | SERVICES, | | | [...] | + + + + + | [facility] | [address] | [place] [address] | | | SERVICES, NATALEE | VILMA [...] | + + + + + | [facility] | [address] | [place] [address] | | | SERVICES, CORE | PARK [...] [facility] | [address] | [place] [address] | | | ELIN, NATALEE | VILMA [...] | | | LABORATORY | | | [facility] | | | SERVICES, | | | [...] | + + + + + | [facility] | [address] | [place] [address] | | | SERVICES, CORE | VILMA [...] [facility] | [address] | [place] [address] | | | SERVICES, NATALEE | VILMA [...] | + + + + + | [facility] | [address] | [place] [address] | | | NATALEE WORTHINGTON | VILMA [...] | | | LABORATORY | | | [facility] | | | SERVICES, | | | [...] | + + + + + | [facility] | [address] | [place] [address] | | | SERVICES, CORE | VILMA [...] [facility] | [address] | [place] [address] | | | ELIN, NATALEE | PARK [...] [facility] | [address] | [place] [address] | | | SERVICES, CORE | PARK [...] | | | LABORATORY | | | [facility] | | | SERVICES, | | | [...] the MDRD equation recommended by the | [facility] | | National Kidney Disease Education [...] | + + + + + | [facility] | [address] | [place] [address] | | | ELIN, NATALEE | [address] | | | + + + + + X-RAY PORTABLE CHEST PICC LINE CHECK (09/16/2017 1:11 PM PDT) + + | Specimen | + + | | + + + + + | Narrative | Performed At | + + + | EXAM: KS CHEST PICC LINE CHECK HISTORY: PICC placement [...] Note | + + | Service Account, [email or web address] In Interface - 09/16/2017 1:34 PM PDT EXAM: KS CHEST | | PICC LINE CHECK HISTORY: [...] At | + + + | EXAM: KS CHEST PICC LINE CHECK HISTORY: Evaluate PICC [...] Note | + + | Service Account, [employer] Res In Interface - 09/16/2017 11:41 AM PDT EXAM: KS CHEST | | PICC LINE CHECK HISTORY: [...] [facility] | [address] | [place] [address] | | | SERVICES, CORE | PARK [...] [facility] | [address] | [place] [address] | | | NATALEE WORTHINGTON | VILMA [...] | | | LABORATORY | | | [facility] | | | SERVICES, | | | [...] | + + + + + | [facility] | [address] | [place] [address] | | | NATALEE WORTHINGTON | [address] | | | + + + + + X-RAY PORTABLE CHEST 1 VIEW (09/15/2017 3:28 PM PDT) + + | Specimen | + + | | + + + + + | Narrative | Performed At | + + + | EXAM: KS CHEST 1 VIEW HISTORY: COMPARISON: None. | [...] Interface - 09/15/2017 6:45 PM PDT EXAM: KS CHEST 1 | | VIEW HISTORY: COMPARISON: [...] At | + + + | EXAM: KS CHEST PICC LINE CHECK HISTORY: PICC COMPARISON: [...] Interface - 09/15/2017 6:43 PM PDT EXAM: KS CHEST | | PICC LINE CHECK HISTORY: [...] verifies correct patient, procedure, equipment, learning support assistant | | | and site/side [...] | area Basilic vein. Catheter lot number: [id number] with a length of 55 | | [...] | + + + + + | [facility] | [address] | [place] [address] | | | SERVICES, CORE | [address] | | | + + + + + MAGNESIUM, PLASMA (09/15/2017 6:02 AM PDT) + +-------+ + + + | Component | Value | Ref Range | Performed | Pathologist | | | | | At | Signature | + +-------+ + + + | MAGNESIUM,P | 2.1 | 1.6 - 2.6 mg/dL | [facility] | | | [facility] | | | [...] [facility] | [address] | [place] [address] | | | SERVICES, NATALEE | [address] [...] | | | LABORATORY | | | [facility] | | | SERVICES, | | | [...] | + + + + + | [facility] | [address] | [place] [address] | | | SERVICES, CORE | [address] [...] [facility] | [address] | [place] [address] | | | ELIN, NATALEE | [address] [...] [facility] | [address] | [place] [address] | | | SERVICES, CORE | PARK [...] | | | LABORATORY | | | [facility] | | | SERVICES, | | | [...] the MDRD equation recommended by the | [facility] | | National Kidney Disease Education [...] | + + + + + | [facility] | [address] | [place] [address] | | | NATALEE WORTHINGTON | [address] [...] [facility] | [address] | [place] [address] | | | SERVICES, NATALEE | PARK [...] [facility] | [address] | [place] [address] | | | SERVICES, CORE | PARK [...] | | | LABORATORY | | | [facility] | | | SERVICES, | | | [...] | + + + + + | [facility] | [address] | [place] [address] | | | NATALEE WORTHINGTON | [address] [...] | + + + + + | [facility] | [address] | [place] [address] | | | NATALEE WORTHINGTON | [address] [...] | + + + + + | [facility] | [address] | [place] [address] | | | SERVICES, CORE | PARK [...] | | | LABORATORY | | | [facility] | | | SERVICES, | | | [...] [facility] | [address] | [place] [address] | | | SERVICES, CORE | [address] [...] | | + +---------+ + + | [facility] | | | | | [...] | + + + + + | [facility] | [address] | [place] [address] | | | SERVICES, CORE | [address] [...] [facility] | [address] | [place] [address] | | | SERVICES, CORE | PARK [...] | | | LABORATORY | | | [facility] | | | SERVICES, | | | [...] the MDRD equation recommended by the | [facility] | | National Kidney Disease Education [...] | + + + + + | [facility] | [address] | [place] [address] | | | NATALEE WORTHINGTON | [address] [...] | + + + + + | [facility] | [address] | [place] [address] | | | SERVICES, NATALEE | [address] [...] Note | + + | Service Account, [employer] In Interface - 09/10/2017 2:08 PM [...] Note | + + | Service Account, [email or web address] In Interface - 09/10/2017 2:31 PM PDT [...] [facility] | | | | | [facility] [place] | | | | + +---------+ + + X-RAY PORTABLE CHEST 1 VIEW (09/10/2017 7:16 AM PDT) + + | Specimen | + + | | + + + + + | Narrative | Performed At | + + + | STUDY: KS CHEST 1 VIEW 09/10/17 07:02:01 HISTORY: Possible [...] Interface - 09/10/2017 9:25 AM PDT STUDY: KS CHEST 1 | | VIEW 09/10/17 07:02:01 [...] | + + + + + | [facility] | [address] | [place] [address] | | | SERVICES, CORE | PARK [...] + | [facility] | [address] | [place] [address] | | | SERVICES, CORE | PARK [...] | + + + + + | [facility] | [address] | [place] [address] | | | NATALEE WORTHINGTON | [address] [...] | + + + + + | [facility] | [address] | [place] [address] | | | SERVICES, CORE | PARK [...] | | | LABORATORY | | | [facility] | | | SERVICES, | | | [...] | + + + + + | [facility] | [address] | [place] [address] | | | SERVICES, CORE | [address] | | | + + + + + 12 LEAD ECG (09/10/2017 1:08 AM PDT) + + + + + + | Component | Value | Ref Range | Performed | Pathologist | | | | | At | Signature | + + + + + + | VENTRICULAR | 120 | bpm | [facility] | | | RATE | | [...] | + + + + + | [facility] | [address] | [place], [place] | | | CARDIOLOGY | [address] | [address] | | + + + + + X-RAY ABD LTD FEEDING TUBE EVAL PORTABLE (09/09/2017 10:15 PM PDT) + + | Specimen | + + | | + + + + + | Narrative | Performed At | + + + | INDICATION: feeding tube placement TECHNIQUE: Supine portable | [facility] | | view of the upper [...] [facility] | [address] | [place], [place] | | | [facility] | [facility] | [address] | | | TESTS | | | [...] [facility] | [address] | [place] [address] | | | SERVICES, CORE | PARK [...] | + + + + + | [facility] | [address] | [place] [address] | | | SERVICES, CORE | PARK [...] | | | LABORATORY | | | [facility] | | | SERVICES, | | | [...] the MDRD equation recommended by the | [facility] | | National Kidney Disease Education [...] [facility] | [address] | [place] [address] | | | SERVICES, CORE | PARK [...] | + + + + + | [facility] | [address] | [place] [address] | | | SERVICES, CORE | [address] [...] | | | LABORATORY | | | [facility] | | | SERVICES, | | | [...] [facility] | [address] | [place] [address] | | | SERVICES, CORE | PARK [...] | + + + + + | [facility] | [address] | [place] [address] | | | SERVICES, CORE | VIL[address] [...] | + + + + + | [facility] | [address] | [place] [address] | | | SERVICES, [facility] | [address] | [...] DEPT OF | [address] | [place], [place] | | | CARDIOLOGY | [address] | [address] | | + + + + + X-RAY PORTABLE CHEST 1 VIEW (09/07/2017 6:12 AM PDT) + + | Specimen | + + | | + + + + + | Narrative | Performed At | + + + | EXAM: KS CHEST 1 VIEW HISTORY: Post extubation COMPARISON: [...] Interface - 09/07/2017 10:46 AM PDT EXAM: KS CHEST 1 | | VIEWHISTORY: Post extubationCOMPARISON: [...] [facility] | [address] | [place] [address] | | | NATALEE WORTHINGTON | [address] [...] | | | LABORATORY | | | [facility] | | | SERVICES, | | | [...] | + + + + + | [facility] | [address] | [place] [address] | | | NATALEE WORTHINGTON | [address] [...] + + | [facility] | [address] | [place] [address] | | | SERVICES, NATALEE | [address] [...] Note | + + | Service Account, ECO2 Plastics Res In Interface - 09/07/2017 10:46 AM [...] | [facility] OF | [address] | [place], [place] | | | CARDIOLOGY | [address] | [address] | | + + + + + [...] | | | attempt. Midline lot number [id number]; there was positive blood | | | [...] | | | LABORATORY | | | [facility] | | | SERVICES, | | | [...] [facility] | [address] | [place] [address] | | | SERVICES, CORE | PARK [...] | + + + + + | [facility] | [address] | [place] [address] | | | SERVICES, CORE | [address] | | | + + + + + X-RAY PORTABLE CHEST 1 VIEW (09/05/2017 5:33 AM PDT) + + | Specimen | + + | | + + + + + | Narrative | Performed At | + + + | EXAM: KS CHEST 1 VIEW HISTORY: Evaluation after chest [...] Interface - 09/05/2017 10:16 AM PDT EXAM: KS CHEST 1 | | VIEW HISTORY: Evaluation [...] [facility] | [address] | [place] [address] | | | SERVICES, CORE | PARK [...] | + + + + + | [facility] | [address] | [place] [address] | | | SERVICES, CORE | [address] [...] | | | LABORATORY | | | [facility] | | | SERVICES, | | | [...] [facility] | [address] | [place] [address] | | | SERVICES, CORE | [address] [...] | | | LABORATORY | | | [facility] | | | SERVICES, | | | [...] the MDRD equation recommended by the | [facility] | | National Kidney Disease Education [...] | + + + + + | [facility] | [address] | [place] [address] | | | [facility], [facility] | [address] | [...] tomorrow morning. CB Henson Pager / ID: [phone] | | + + + CULTURE, SPUTUM [...] + | [facility] | [address] | [place] [address] | | | [place] | | | [...] | + + + + + | [facility] | [address] | [place] [address] | | | SERVICES, CORE | [address] [...] | [facility] | | | GRAVITY | [place] performed by | | LABORATORY | | [...] [facility] | [address] | [place] [address] | | | SERVICES, CORE | PARK [...] | + + + + + | [facility] | [address] | [place] [address] | | | SERVICES, CORE | VIL[address] [...] | + + + + + | [facility] | [address] | [place] [address] | | | SERVICES, CORE | PARK [...] | [facility] | [address] | [place], [place] | | | CARDIOLOGY | [address] | [address] | | + + + + + X-RAY PORTABLE CHEST 1 VIEW (09/04/2017 7:04 AM PDT) + + | Specimen | + + | | + + + + + | Narrative | Performed At | + + + | EXAM: KS CHEST 1 VIEW HISTORY: Hypoxia. Intubated. | [...] Interface - 09/04/2017 9:49 AM PDT EXAM: KS CHEST 1 | | VIEW HISTORY: Hypoxia. [...] | + + + + + | [facility] | [address] | [place] [address] | | | SERVICES, CORE | [address] [...] [facility] | [address] | [place] [address] | | | SERVICES, CORE | PARK [...] | | | LABORATORY | | | [facility] | | | SERVICES, | | | [...] the MDRD equation recommended by the | [facility] | | National Kidney Disease Education [...] | + + + + + | [facility] | [address] | [place] [address] | | | SERVICES, CORE | [address] | | | + + + + + MAGNESIUM, PLASMA (09/04/2017 12:29 AM PDT) + +-------+ + + + | Component | Value | Ref Range | Performed | Pathologist | | | | | At | Signature | + +-------+ + + + | MAGNESIUM,P | 1.9 | 1.6 - 2.6 mg/dL | [facility] | | | LISA | | | [...] [facility] | [address] | [place] [address] | | | ELIN, NATALEE | VILMA [...] [facility] | [address] | [place], [place] | | | [facility] PO[facility] CARE | [address] | [address] | | | TESTS | | | [...] + + + | [facility] | [address] | [place], [place] | | | [facility] | [address] | [address] | | | TESTS | | | [...] [facility] | [address] | [place], [place] | | | [facility]IA GE[facility] | [address] | [address] | | | TESTS | | | [...] [facility] | [address] | [place], [place] | | | [facility] | [address] | [address] | | | TESTS | | | [...] Note | + + | Service Account, ECO2 Plastics Res In Interface - 09/03/2017 10:27 AM [...] | | + +---------+ + + | [facility] | | | | | [facility] | | | | + +---------+ [...] detected | AIRPORT - | | | [place] | + + + + + + + + | Performing | Address | City/State/Zipcode | Phone Number | | Organization | | | | + + + + + | [facility] | [address] | [place] [address] | | | [place] | | | [...] + + + + + | [facility] | [address] | [place] [address] | | | SERVICES, CORE | [address] [...] + | [facility] | [address] | [place] [address] | | | [place] | | | | + + + [...] | + + + + + | [facility] | [address] | [place] [address] | | | SERVICES, CORE | PARK [...] | + + + + + | [facility] | [address] | [place] [address] | | | SERVICES, CORE | PARK [...] | | | LABORATORY | | | [facility] | | | SERVICES, | | | [...] [facility] | [address] | [place] [address] | | | SERVICES, CORE | [address] [...] | + + + + + | [facility] | [address] | [place] [address] | | | SERVICES, CORE | [address] | | | + + + + + OPERATION RECORD (09/02/2017 6:53 PM PDT) + + | Procedure Note | + + | Fidelina Shields MD - 09/02/2017 6:53 PM PDT Date of Service: 09/02/2017 | | Attending Surgeon: Fidelina Shields MD Financial Sales Consultant(s): | | Ajay Garcia MD, resident. Preoperative [...] 09/02/2017 18:15:29DT: 09/02/2017 18:53:52Job #: | | [id number] to federal Medicare and Medicaid regulations I was present for | | the entire procedure.Fidelina Shields MDAssistanbrice ProfessorDepartment of SurgeryOffice: | | [phone]: [id number] has been electronically signed by Fidelina Shields MD, | | 09/03/2017 at 9:11 AM. | | | | | |Fidelina Shields MD | |[employer] Mechanical Instrument Maker | |Department of Surgery | |Office: [phone] | |Pager: [phone] | | | |This has been electronically [...] LABORATORY | [address] | [place] [address] | | | SERVICES, CORE | PARK [...] | + + + + + | [facility] | [address] | [place] [address] | | | SERVICES, CORE | VIL[address] [...] + | [facility] | [address] | [place] [address] | | | [place] | | | [...] | + + + + + | [facility] | [address] | [place] [address] | | | NATALEE WORTHINGTON | [address] [...] | | | LABORATORY | | | [facility] | | | SERVICES, | | | [...] | + + + + + | [facility] | [address] | [place] [address] | | | SERVICES, CORE | [address] [...] Note | + + | Service Account, ECO2 Plastics Res In Interface - 09/02/2017 4:25 PM [...] | | | contact: INGRID Garcia, Surgery [phone] Pursuant | | | to federal Medicare and Medicaid regulations I was present for the | | | entire procedure. Fidelina Shields MD [employer] | | | Department of Surgery Office: [phone] Pager: [phone] This has | | | been electronically [...] [facility] | [address] | [place] [address] | | | SERVICES, NATALEE | [address] [...] | + + + + + | [facility] | [address] | [place] [address] | | | SERVICES, NATALEE | [address] | | | + + + + + OPERATION RECORD (09/02/2017 6:51 AM PDT) + ---+ | Procedure Note | + ---+ | Fidelina Shields MD - 09/02/2017 6:51 AM PDT Date of Service: 09/01/2017 | | Attending Surgeon: Fidelina Shields MD Financial Sales Consultant(s): Haim Peralat MD. | | Ajay Garcia MD. Preoperative [...] 09/02/2017 06:17:53DT: 09/02/2017 | | 06:51:37Job #: [id number] to federal Medicare and Medicaid regulations I | | was present for the entire procedure.Fidelina Shields MDAssistant ProfessorDepartment of | | SurgeryOffice: [phone]: [id number] has been electronically signed by Fidelina Snyder | | MD Cornelius, 09/02/2017 at 10:40 AM. | | | | | |Pursuant to federal Medicare and Medicaid regulations I was present for the entire procedur e. | | | | | | | |Fidelina Shields MD | |Precision Mechanical Instrument Maker | |Department of Surgery | |Office: [phone] | |Pager: [phone] | | | |This has been electronically [...] [facility] | [address] | [place] [address] | | | SERVICES, CORE | PARK [...] | + + + + + | [facility] | [address] | [place] [address] | | | SERVICES, CORE | [address] [...] + + + + | PRODUCT | [id number] | | [facility] | | | UNIT [...] + + + + | EXPIRATION | [id number] | | [facility] | | | DATE [...] + + + + | BLOOD | [id number] | | [facility] | | | PRODUCT [...] | + + + + + | [facility] | [address] | [place] [address] | | | SERVICES, | [address] [...] [facility] | [address] | [place] [address] | | | SERVICES, CORE | [address] [...] | | | LABORATORY | | | [facility] | | | SERVICES, | | | [...] the MDRD equation recommended by the | [facility] | | National Kidney Disease Education [...] | + + + + + | [facility] | [address] | [place] [address] | | | SERVICES, CORE | PARK [...] [facility] | [address] | [place] [address] | | | SERVICES, NATALEE | [address] [...] | | | | INFORMATION: | | [place] | | | | QuantiFERON-TB Gold | [...] (http://www.cdc.gov/mmwr | | | | | | /preview/mmwrhtml/mf2615 | | | | | | [email or web address].htm), [...] [facility] - | | | | by [employer], | | AIRPORT - | | | | | | [place] | | | | [address] | | | | | | [address] [facility] [place] | | | | | | [address] | | | | | | | | | | | | [email or web address] | | | | | | MD [...] + | [facility] | [address] | [place] [address] | | | [place] | | | [...] [facility] | [address] | [place] [address] | | | SERVICES, CORE | PARK [...] | + + + + + | [facility] | [address] | [place] [address] | | | SERVICES, CORE | [address] [...] Note | + + | Service Account, ECO2 Plastics Res In Interface - 09/02/2017 8:55 AM [...] At | + + + | EXAM: KS CHEST 1 VIEW HISTORY: Hypoxemia COMPARISON: 09/01/17 [...] Note | + + | Service Account, ECO2 Plastics Res In Interface - 09/02/2017 10:34 AM PDT EXAM: KS CHEST 1 | | VIEW HISTORY: HypoxemiaCOMPARISON: [...] [facility] | [address] | [place] [address] | | | ELIN, NATALEE | [address] [...] [facility] | [address] | [place] [address] | | | SERVICES, CORE | [address] [...] + + + + | PRODUCT | [id number] | | [facility] | | | UNIT [...] + + + + | EXPIRATION | [id number] | | [facility] | | | DATE [...] + + + + | BLOOD | [id number] | | [facility] | | | PRODUCT [...] [facility] | [address] | [place] [address] | | | SERVICES, | [address] [...] | + + + + + | [facility] | [address] | [place] [address] | | | SERVICES, CORE | [address] [...] | + + + + + | [facility] | [address] | [place] [address] | | | SERVICES, CORE | PARK [...] [facility] | [address] | [place] [address] | | | SERVICES, CORE | PARK [...] | | | LABORATORY | | | [facility] | | | SERVICES, | | | [...] [facility] | [address] | [place] [address] | | | SERVICES, CORE | P[address] [...] | + + + + + | [facility] | [address] | [place] [address] | | | ELIN, NATALEE | VILMA [...] | + + + + + | [facility] | [address] | [place] [address] | | | SERVICES, CORE | [address] | | | + + + + + IR EMBOLIZATION OTHER (09/01/2017 2:06 PM PDT) + + | Specimen | + + | | + + + + + | Narrative | Performed At | + + + | Procedure: Selective visceral arteriography. IR Attending: | [facility] | | Marquez Hubbard MD, PhD IR [...] micropuncture access set was exchanged for a CEDAR RIDGE RESEARCH wire. Under | | | fluoroscopic guidance, a 5 Fr flush catheter was used to evaluate the | | | distal abdominal aorta and pelvic vasculature. A wire and catheter | | | were then used to select the left common and internal iliac arteries | | | from the right GLOST KILN PLACER approach. DSA was performed from the left [...] micropuncture access set was exchanged for a CEDAR RIDGE RESEARCH wire. Under fluoroscopic guidance, | | a 5 Fr flush catheter was used to evaluate the distal abdominal aorta and pelvic | | vasculature. A wire and catheter were then used to select the left common and internal | | iliac arteries from the right GLOST KILN PLACER approach. DSA was performed from the left [...] micropuncture access set was exchanged for a CEDAR RIDGE RESEARCH wire. Under fluoroscopic guidance, a 5 Fr flush catheter was used | |to evaluate the distal abdominal aorta and pelvic vasculature. A wire and catheter were th en used to select the left common and internal iliac arteries from the right GLOST KILN PLACER approach. DSA was performed from the left [...] [facility] | [address] | [place], [place] | | | [facility] | [address] | [address] | | | TESTS | | | | + + + + + EXPLORATORY LAPAROTOMY (09/01/2017 12:31 PM PDT) + + + | Narrative | Performed At | + + + | Fidelina Shields MD 09/01/2017 12:42 PM BRIEF OPERATIVE NOTE: | | | Date: 09/01/2017 Author: Fidelina Shields MD | | | Attending Physician: Fidelina Shields MD Financial Sales Consultant(s): Haim Peralta | | | , Vicente Garcia MD, [facility] MS3 Prior to the | | [...] case. | | | Fidelina Shields MD [employer] Mechanical Instrument Maker Division of Trauma, | | | Critical Care and Acute Care Surgery Office: [phone] Pager: | | | [phone] | | + + + ABG-FULL ABL, [...] [facility] | [address] | [place], [place] | | | [facility] PO[facility]ARE | [address] | [address] | | | TESTS | | | [...] | + + + + + | [facility] | [address] | [place] [address] | | | SERVICES, CORE | [address] [...] (H) | 72 - 104 mmHg | [facility] - | | | ARTERIAL, | [...] [facility] | [address] | [place], [place] | | | [facility] | [address] | [address] | | | TESTS | | | [...] + + + + | PRODUCT | [id number] | | [facility] | | | UNIT [...] + + + + | EXPIRATION | [id number] | | [facility] | | | DATE [...] + + + + | BLOOD | [id number] | | [facility] | | | PRODUCT [...] [facility] | [address] | [place] [address] | | | SERVICES, | [address] [...] + + + + | PRODUCT | [id number] | | [facility] | | | UNIT [...] + + + + | EXPIRATION | [id number] | | [facility] | | | DATE [...] + + + + | BLOOD | [id number] | | [facility] | | | PRODUCT [...] [facility] | [address] | [place] [address] | | | SERVICES, | [address] [...] + + + + | PRODUCT | [id number] | | [facility] | | | UNIT [...] + + + + | EXPIRATION | [id number] | | [facility] | | | DATE [...] + + + + | BLOOD | [id number] | | [facility] | | | PRODUCT [...] [facility] | [address] | [place] [address] | | | SERVICES, | [address] [...] + + + + | PRODUCT | [id number] | | [facility] | | | UNIT [...] + + + + | EXPIRATION | [id number] | | [facility] | | | DATE [...] + + + + | BLOOD | [id number] | | [facility] | | | PRODUCT [...] [facility] | [address] | [place] [address] | | | SERVICES, | [address] [...] + + + + | PRODUCT | [id number] | | [facility] | | | UNIT [...] + + + + | EXPIRATION | [id number] | | [facility] | | | DATE [...] + + + + | BLOOD | [id number] | | [facility] | | | PRODUCT [...] [facility] | [address] | [place] [address] | | | SERVICES, | [address] [...] + + + + | PRODUCT | [id number] | | [facility] | | | UNIT [...] + + + + | EXPIRATION | [id number] | | [facility] | | | DATE [...] + + + + | BLOOD | [id number] | | [facility] | | | PRODUCT [...] [facility] | [address] | [place] [address] | | | SERVICES, | [address] [...] + + + + | PRODUCT | [id number] | | [facility] | | | UNIT [...] + + + + | EXPIRATION | [id number] | | [facility] | | | DATE [...] + + + + | BLOOD | [id number] | | [facility] | | | PRODUCT [...] | + + + + + | [facility] | [address] | [place] [address] | | | SERVICES, | [address] [...] + + + + | PRODUCT | [id number] | | [facility] | | | UNIT [...] + + + + | EXPIRATION | [id number] | | [facility] | | | DATE [...] + + + + | BLOOD | [id number] | | [facility] | | | PRODUCT [...] | + + + + + | [facility] | [address] | [place] [address] | | | SERVICES, | [address] [...] + + + + | PRODUCT | [id number] | | [facility] | | | UNIT [...] + + + + | EXPIRATION | [id number] | | [facility] | | | DATE [...] + + + + | BLOOD | [id number] | | [facility] | | | PRODUCT [...] | + + + + + | [facility] | [address] | [place] [address] | | | SERVICES, | [address] [...] + + + + | PRODUCT | [id number] | | [facility] | | | UNIT [...] + + + + | EXPIRATION | [id number] | | [facility] | | | DATE [...] + + + + | BLOOD | [id number] | | [facility] | | | PRODUCT [...] | + + + + + | [facility] | [address] | [place] [address] | | | SERVICES, | [address] [...] + + + + | PRODUCT | [id number] | | [facility] | | | UNIT [...] + + + + | EXPIRATION | [id number] | | [facility] | | | DATE [...] + + + + | BLOOD | [id number] | | [facility] | | | PRODUCT [...] [facility] | [address] | [place] [address] | | | SERVICES, | [address] [...] + + + + | PRODUCT | [id number] | | [facility] | | | UNIT [...] + + + + | EXPIRATION | [id number] | | [facility] | | | DATE [...] + + + + | BLOOD | [id number] | | [facility] | | | PRODUCT [...] [facility] | [address] | [place] [address] | | | SERVICES, | [address] [...] + + + + | PRODUCT | [id number] | | [facility] | | | UNIT [...] + + + + | EXPIRATION | [id number] | | [facility] | | | DATE [...] + + + + | BLOOD | [id number] | | [facility] | | | PRODUCT [...] [facility] | [address] | [place] [address] | | | SERVICES, | [address] [...] + + + + | PRODUCT | [id number] | | [facility] | | | UNIT [...] + + + + | EXPIRATION | [id number] | | [facility] | | | DATE [...] + + + + | BLOOD | [id number] | | [facility] | | | PRODUCT [...] [facility] | [address] | [place] [address] | | | SERVICES, | [address] [...] + + + + | PRODUCT | [id number] | | [facility] | | | UNIT [...] + + + + | EXPIRATION | [id number] | | [facility] | | | DATE [...] + + + + | BLOOD | [id number] | | [facility] | | | PRODUCT [...] | + + + + + | [facility] | [address] | [place] [address] | | | SERVICES, | [address] [...] + + + + | PRODUCT | [id number] | | [facility] | | | UNIT [...] + + + + | EXPIRATION | [id number] | | [facility] | | | DATE [...] + + + + | BLOOD | [id number] | | [facility] | | | PRODUCT [...] [facility] | [address] | [place] [address] | | | SERVICES, | [address] [...] + + + + | PRODUCT | [id number] | | [facility] | | | UNIT [...] + + + + | EXPIRATION | [id number] | | [facility] | | | DATE [...] + + + + | BLOOD | [id number] | | [facility] | | | PRODUCT [...] LABORATORY | [address] | [place] [address] | | | SERVICES, | [address] [...] + + + + | PRODUCT | [id number] | | [facility] | | | UNIT [...] + + + + | EXPIRATION | [id number] | | [facility] | | | DATE [...] + + + + | BLOOD | [id number] | | [facility] | | | PRODUCT [...] | + + + + + | [facility] | [address] | [place] [address] | | | SERVICES, | [address] [...] + + + + | PRODUCT | [id number] | | [facility] | | | UNIT [...] + + + + | EXPIRATION | [id number] | | [facility] | | | DATE [...] + + + + | BLOOD | [id number] | | [facility] | | | PRODUCT [...] | + + + + + | [facility] | [address] | [place] [address] | | | SERVICES, | [address] [...] + + + + | PRODUCT | [id number] | | [facility] | | | UNIT [...] + + + + | EXPIRATION | [id number] | | [facility] | | | DATE [...] + + + + | BLOOD | [id number] | | [facility] | | | PRODUCT [...] | + + + + + | [facility] | [address] | [place] [address] | | | SERVICES, | [address] [...] + + + + | PRODUCT | [id number] | | [facility] | | | UNIT [...] + + + + | EXPIRATION | [id number] | | [facility] | | | DATE [...] + + + + | BLOOD | [id number] | | [facility] | | | PRODUCT [...] | + + + + + | [facility] | [address] | [place] [address] | | | SERVICES, | [address] [...] + + + + | PRODUCT | [id number] | | [facility] | | | UNIT [...] + + + + | EXPIRATION | [id number] | | [facility] | | | DATE [...] + + + + | BLOOD | [id number] | | [facility] | | | PRODUCT [...] | + + + + + | [facility] | [address] | [place] [address] | | | SERVICES, | [address] [...] + + + + | PRODUCT | [id number] | | [facility] | | | UNIT [...] + + + + | EXPIRATION | [id number] | | [facility] | | | DATE [...] + + + + | BLOOD | [id number] | | [facility] | | | PRODUCT [...] [facility] | [address] | [place] [address] | | | SERVICES, | [address] [...] + + + + | PRODUCT | [id number] | | [facility] | | | UNIT [...] + + + + | EXPIRATION | [id number] | | [facility] | | | DATE [...] + + + + | BLOOD | [id number] | | [facility] | | | PRODUCT [...] [facility] | [address] | [place] [address] | | | SERVICES, | [address] [...] + + + + | PRODUCT | [id number] | | [facility] | | | UNIT [...] + + + + | EXPIRATION | [id number] | | [facility] | | | DATE [...] + + + + | BLOOD | [id number] | | [facility] | | | PRODUCT [...] [facility] | [address] | [place] [address] | | | SERVICES, | [address] [...] + + + + | PRODUCT | [id number] | | [facility] | | | UNIT [...] + + + + | EXPIRATION | [id number] | | [facility] | | | DATE [...] + + + + | BLOOD | [id number] | | [facility] | | | PRODUCT [...] [facility] | [address] | [place] [address] | | | SERVICES, | [address] [...] [facility] | [address] | [place] [address] | | | NATALEE WORTHINGTON | [address] [...] | | | LABORATORY | | | [facility] | | | SERVICES, | | | [...] | + + + + + | [facility] | [address] | [place] [address] | | | SERVICES, CORE | VIL[place] [...] | + + + + + | [facility] | [address] | [place] [address] | | | SERVICES, CORE | PARK [...] [facility] | [address] | [place], [place] | | | CHADWICK ELFIN COVE OF [facility] | [address] | [address] | | | TESTS | | | | + + + + + X-RAY PORTABLE CHEST 1 VIEW (09/01/2017 9:18 AM PDT) + + | Specimen | + + | | + + + + + | Narrative | Performed At | + + + | EXAM: KS CHEST 1 VIEW HISTORY: Intubated COMPARISON: 08/31/17 [...] Note | + + | Service Account, [employer] Res In Interface - 09/02/2017 1:23 PM PDT EXAM: KS CHEST 1 | | VIEW HISTORY: IntubatedCOMPARISON: [...] Note | + + | Service Account, [email or web address] In Interface - 09/01/2017 1:40 PM PDT [...] + + + + | PRODUCT | [id number] | | [facility] | | | UNIT [...] + + + + | EXPIRATION | [id number] | | [facility] | | | DATE [...] + + + + | BLOOD | [id number] | | [facility] | | | PRODUCT [...] [facility] | [address] | [place] [address] | | | SERVICES, | [address] [...] + + + + | PRODUCT | [id number] | | [facility] | | | UNIT [...] + + + + | EXPIRATION | [id number] | | [facility] | | | DATE [...] + + + + | BLOOD | [id number] | | [facility] | | | PRODUCT [...] [facility] | [address] | [place] [address] | | | SERVICES, | [address] [...] + + + + | PRODUCT | [id number] | | [facility] | | | UNIT [...] + + + + | EXPIRATION | [id number] | | [facility] | | | DATE [...] + + + + | BLOOD | [id number] | | [facility] | | | PRODUCT [...] [facility] | [address] | [place] [address] | | | SERVICES, | [address] [...] + + + + | PRODUCT | [id number] | | [facility] | | | UNIT [...] + + + + | EXPIRATION | [id number] | | [facility] | | | DATE [...] + + + + | BLOOD | [id number] | | [facility] | | | PRODUCT [...] [facility] | [address] | [place] [address] | | | SERVICES, | [address] [...] + + + + | PRODUCT | [id number] | | [facility] | | | UNIT [...] + + + + | EXPIRATION | [id number] | | [facility] | | | DATE [...] + + + + | BLOOD | [id number] | | [facility] | | | PRODUCT [...] [facility] | [address] | [place] [address] | | | SERVICES, | [address] [...] + + + + | PRODUCT | [id number] | | [facility] | | | UNIT [...] + + + + | EXPIRATION | [id number] | | [facility] | | | DATE [...] + + + + | BLOOD | [id number] | | [facility] | | | PRODUCT [...] [facility] | [address] | [place] [address] | | | SERVICES, | [...] + + + + | PRODUCT | [id number] | | [facility] | | | UNIT [...] + + + + | EXPIRATION | [id number] | | [facility] | | | DATE [...] + + + + | BLOOD | [id number] | | [facility] | | | PRODUCT [...] [facility] | [address] | [place] [address] | | | SERVICES, | [address] [...] + + + + | PRODUCT | [id number] | | [facility] | | | UNIT [...] + + + + | EXPIRATION | [id number] | | [facility] | | | DATE [...] + + + + | BLOOD | [id number] | | [facility] | | | PRODUCT [...] | + + + + + | [facility] | [address] | [place] [address] | | | SERVICES, | [address] [...] + + + + | PRODUCT | [id number] | | [facility] | | | UNIT [...] + + + + | EXPIRATION | [id number] | | [facility] | | | DATE [...] + + + + | BLOOD | [id number] | | [facility] | | | PRODUCT [...] | + + + + + | [facility] | [address] | [place] [address] | | | SERVICES, | [address] [...] + | [facility] | [address] | [place] [address] | | | NATALEE WORTHINGTON | [address] [...] [facility] | [address] | [place] [address] | | | SERVICES, CORE | VIL[address] [...] with | | | trauma ICU international exchange coordinator by Dr. Yang at 4:38 AM. I [...] ligament is injured.Discussed with trauma ICU international exchange coordinator | | by Dr. Yang at 4:38 AM.I have personally reviewed the images and, if necessary, | | edited the report. I agree with the report as now presented. | |3. Extensive soft tissue edema extending into the cervical and upper thoracic interspinous space, suggestive of interspinous ligament is injured. | | | |Discussed with trauma ICU international exchange coordinator by Dr. Yang at 4:38 AM. | [...] | | | LABORATORY | | | [facility] | | | SERVICES, | | | [...] | + + + + + | [facility] | [address] | [place] [address] | | | SERVICES, CORE | PARK [...] [facility] | [address] | [place] [address] | | | SERVICES, CORE | PARK [...] [facility] | [address] | [place] [address] | | | SERVICES, CORE | PARK [...] | + + + + + | [facility] | [address] | [place] [address] | | | [place], [facility] | [address] | [...] pleural spaced was performed. A 32 size Botswanan chest tube was | | | placed [...] ventricles. Discussed with the trauma ICU international exchange coordinator at 12:12 AM by | | | [...] with | | the trauma ICU international exchange coordinator at 12:[address] Yang.I have [...] | |Discussed with the trauma ICU international exchange coordinator at 12:[address] Yang. | [...] [facility] | [address] | [place], [place] | | | [facility] | [address] | [address] | | | TESTS | | | [...] [facility] | [address] | [place] [address] | | | SERVICES, CORE | PARK [...] + + + | [facility] | [address] | [place] [address] | | | SERVICES, NATALEE | [address] [...] | | + +---------+ + + | [facility] | | | | | [...] | + + + + + | [facility] | [address] | [place] [address] | | | SERVICES, [facility] | [address] | | | + + + + + X-RAY PORTABLE CHEST 1 VIEW (08/31/2017 7:07 PM PDT) + + | Specimen | + + | | + + + + + | Narrative | Performed At | + + + | STUDY: KS CHEST 1 VIEW HISTORY: Trauma COMPARISON: CT CAP | [facility] | | 08/31/2017 FINDINGS: Endotracheal tube [...] Interface - 09/01/2017 1:44 PM PDT STUDY: KS CHEST 1 | | VIEWHISTORY: TraumaCOMPARISON: CT [...] | | + +---------+ + + | [facility] | | | | | [...] | + + + + + | [facility] | [address] | [place] [address] | | | SERVICES, CORE [...] | | + +---------+ + + | [facility] | | | | | VOICE [...] Note | + + | Service Account, [employer] Res In Interface - 09/01/2017 10:12 AM [...] rib, nondisplaced-Left | | 1st rib fracture, kxniqykpigpc-Grn-znalmcpkk left lateral 8th rib fracture-T12 fracture | [...] Note | + + | Service Account, [email or web address] In Interface - 08/31/2017 8:10 PM PDT [...] | + + + + + | [facility] | [address] | [place] [address] | | | ELIN | [address] [...] LABORATORY | [address] | [place] [address] | | | SERVICES, | [address] [...] | + + + + + | [facility] | [address] | [place] [address] | | | SERVICES, | [address] [...] - [facility] | [address] | [place], [place] | | | [facility] | [address] | [address] | | | TESTS | | | [...] + + + | [facility] | [address] | [place], [place] | | | GLORIA GENAO OF [facility] | [facility] | [address] | | | TESTS | | | [...] [facility] | [address] | [place], [place] | | | [facility] | [address] | [address] | | | TESTS | | | [...] [facility] | [address] | [place], [place] | | | [facility] | [facility] | [address] | | | TESTS | | | [...] + + + + | PRODUCT | [id number] | | [facility] | | | UNIT [...] + + + + | EXPIRATION | [id number] | | [facility] | | | DATE [...] + + + + | BLOOD | [id number] | | [facility] | | | PRODUCT [...] [facility] | [address] | [place] [address] | | | SERVICES, | [address] [...] + + + + | PRODUCT | [id number] | | [facility] | | | UNIT [...] + + + + | EXPIRATION | [id number] | | [facility] | | | DATE [...] + + + + | BLOOD | [id number] | | [facility] | | | PRODUCT [...] LABORATORY | [address] | [place] [address] | | | SERVICES, | [address] [...] + + + + | PRODUCT | [id number] | | [facility] | | | UNIT [...] + + + + | EXPIRATION | [id number] | | [facility] | | | DATE [...] + + + + | BLOOD | [id number] | | [facility] | | | PRODUCT [...] [facility] | [address] | [place] [address] | | | SERVICES, | [address] [...] + + + + | PRODUCT | [id number] | | [facility] | | | UNIT [...] + + + + | EXPIRATION | [id number] | | [facility] | | | DATE [...] + + + + | BLOOD | [id number] | | [facility] | | | PRODUCT [...] | + + + + + | [facility] | [address] | [place] [address] | | | SERVICES, | [address] [...] + + + + | PRODUCT | [id number] | | [facility] | | | UNIT [...] + + + + | EXPIRATION | [id number] | | [facility] | | | DATE [...] + + + + | BLOOD | [id number] | | [facility] | | | PRODUCT [...] | + + + + + | [facility] | [address] | [place] [address] | | | SERVICES, | [address] [...] + + + + | PRODUCT | [id number] | | [facility] | | | UNIT [...] + + + + | EXPIRATION | [id number] | | [facility] | | | DATE [...] + + + + | BLOOD | [id number] | | [facility] | | | PRODUCT [...] | + + + + + | [facility] | [address] | [place] [address] | | | SERVICES, | [address] [...] + + + + | PRODUCT | [id number] | | [facility] | | | UNIT [...] + + + + | EXPIRATION | [id number] | | [facility] | | | DATE [...] + + + + | BLOOD | [id number] | | [facility] | | | PRODUCT [...] | + + + + + | [facility] | [address] | [place] [address] | | | SERVICES, | [address] [...] + + + + | PRODUCT | [id number] | | [facility] | | | UNIT [...] + + + + | EXPIRATION | [id number] | | [facility] | | | DATE [...] + + + + | BLOOD | [id number] | | [facility] | | | PRODUCT [...] | + + + + + | [facility] | [address] | [place] [address] | | | SERVICES, | [address] [...] | + + + + + | [facility] | [address] | [place] [address] | | | SERVICES, CORE | [address] [...] | | | LABORATORY | | | [facility] | | | SERVICES, | | | [...] [facility] | [address] | [place] [address] | | | SERVICES, CORE [...] valves (2.5 - 3.5) INR APTT | [facility], CORE | | Therapeutic Range: (75 - 120) sec | | | Heparin levels of 0.35 - 0.7 U/mL | | + + + + + + + + | Performing | Address | City/State/Zipcode | Phone Number | | Organization | | | | + + + + + | [facility] | [address] | [place] [address] | | | SERVICES, CORE | [address]ARK [...] [facility] | [address] | [place] [address] | | | SERVICES, CORE | PARK [...] [facility] | [address] | [place] [address] | | | SERVICES, CORE | PARK [...] | + + + + + | [facility] | [address] | [place] [address] | | | SERVICES, [facility] | [address] | [...]
--- OUTSIDE RECORDS SUMMARY | ~2019-04-04 | XMS | Encounter Summary ---
Demographics + + + | Address | [address] | | | [place] [address] | + + + | Home Phone [...] + + + | Author | [facility] | + + + | Organization | [facility] [employer] [facility] | + + + | Address | Unknown | + + + | Phone | Unavailable | + + + Support + + +---------+ + | Name | Relationship | Address | Phone | + + +---------+ + | Kaylie Baig | ECON | Unknown | | + + +---------+ + Care Team Providers + +------+ + | Care Preschool Disability Teacher Name | Role | Phone | [...] | 2018 | Pass | Services at [facility] | | | | | | [address] | | | | | | [place]ola Tovar Mailcode: | | | | | | [address] [facility] | | | | | | [place], [place] | | | | | | [address] | | | | | | [phone] | | | +--------+ + + + [...]
--- OUTSIDE RECORDS SUMMARY | ~2019-04-04 | XMS | Encounter Summary ---
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 [phone] [facility] [place] [address] [facility] [address] [phone] Associated attestation - Chaz Munoz MD - 10/07/2017 11:15 AM PDTI saw and examined th e patient today with KESHAWN Martin, and agree with the assessement and plan a s outlined in her note. Will consider changing to bolus TF. Plan Gabriel-oconnor tube next week. Chaz Munoz MD, FACS Short Order [facility], Trauma, Critical Care and Acute Care [...] p atient unable to come out fo VALIDATION ARCHITECT for now Resolved or chronic issues/Plan: #Previous [...] issues, including restraints. Venita Pruitt PA-[place] [phone] [facility] [address] [place] [address] Associated attestation - Em Cunningham MD - 10/17/2017 10:13 AM PDTI was present and rou nded with the Advanced Practice Provider today . I interviewed and examined the patient. I reviewed the history, as documented today. I agree with the ASHLEY assessment and plan. TBI has remained stable. On lovenox. Will continue haldol per psych.. EM CUNNINGHAM MD [facility] [address] [place] [address] Venita Pruitt PA-C - 10/05/2017 8:38 AM [...] p atient unable to come out fo VALIDATION ARCHITECT for now Resolved or chronic issues/Plan: #Previous [...] by patient, but wound remains duke n/dry/intact. [place] removed 09/17. #Left hemothorax Chest tube placed [...] issues, including restraints. Venita Pruitt PA-C [place] [phone] [facility] [address] [place] [address] Associated attestation - Shlomo Rosenthal MD - 10/06/2017 7:28 AM PDTFormatting of this note m ight be different from the original. I saw and examined Berlin Temple ([id number]) with the TRAUMA team on 10/05/2017. I [...] and incen tive spirometry for pulmonary toliet. general manager in training for disposition planning and placement. Shlomo Rosenthal MD Senior Integration Architect Division of Trauma and Critical Care [facility], Venita Maciel PA-C - 10/04/2017 6:36 AM [...] (baseline from previous TBI ) Neck: in [place] collar Respiratory: CTA b.l CV: RRR GI: [...] p atient unable to come out fo VALIDATION ARCHITECT for now Resolved or chronic issues/Plan: #Previous [...] issues, including restraints. Venita Pruitt PA-C [place] [phone] [place] [phone] [facility] [address] [place] Critical access hospital [phone] Associated attestation - Fidelina Shields MD - [...] and only enteral access. Fidelina Shields MD Short Order [facility] Division of Trauma, Critical Care and Acute Care Surgery Office: [phone] Pager: [phone] Leonor TorresCB - 10/03/2017 3:13 PM PDT [...] (baseline from previous TBI ) Neck: in [place] collar Respiratory: CTA bilaterally, no distress CV: [...] p atient unable to come out fo VALIDATION ARCHITECT for now Resolved or chronic issues/Plan: Previous [...] by patient, but wound remains duke n/dry/intact. [place] removed 09/17. #Left hemothorax Chest tube placed [...] PDTAttending: I saw and examined Berlin Temple ([id number]) with CB Hair on morning rounds 10/03 and agree with the assessment and plan as outlined in this note and participated in the planning of care. Mental status is slightly better, remains sedated but he is interactive and at least somewh at oriented. Enteral nutrition advancing and, as approaches goal, will turn TPN off. Place ment remains a significant issue. Fidelina Shields MD Short Order [facility] Cook Division of Trauma, Critical Care and Acute Care Surgery Office: [phone] Pager: [phone] July Banegas PA-C - 10/03/2017 12:58 PM [...] the C-collar when in bed then the VALIDATION ARCHITECT when out of bed until 12/01/17. JULY BANEGAS PA-C [facility] [address] [place] [address] Associated attestation - Magdiel Stock MD - 10/04/2017 6:02 PM PDTI performed a history a nd physical examination of the patient and discussed the management with the advanced practi ce provider, July Banegas PA-C. I reviewed the advanced practice provider's note and agree w ith the plan of care as documented. Continue cervical collar and VALIDATION ARCHITECT for 3 months to ensure fracture healing and prevent development of post-fracture cervical kyphosis. Magdiel Stock MD Short Order [facility] Cook Department of Neurological Surgery [facility] Sherine Sarmiento AGACNP - 10/02/2017 12:54 PM [...] (baseline from previous TBI ) Neck: in [place] collar Respiratory: CTA bilaterally, lungs symmetrical, equal chest wall rise, no retractions CV: RRR GI: non tender, soft, active BS, last BM 09/30 : Patient voiding without difficulty Extremities: no peripheral edema, wiggles toes and toes pink and well perfused Musculoskeletal: 5/5 printing worker supervisor strength on right, 3/5 printing worker supervisor strength on left FEN: on TPN, transitioning [...] AMS & delirium - numerous evaluations by PIN TICKET MACHINE OPERATOR with trials of PO - [...] . - C-collar at all times, use VALIDATION ARCHITECT when OOB - Follow-up with Neurosurgery on [...] will decrease scheduled [place]dol[place] Pg [phone] Associated attestation - Fidelina Shields MD - 10/02/2017 4:40 PM PDTAttending: I saw and examined Berlin Temple ([id number]) with KESHAWN Alexander on mornin g rounds [...] place prior to DC Fidelina Shields MD Short Order [facility] Cook Division of Trauma, Critical Care and Acute Care Surgery Office: [phone] Pager: [phone] Sherine Sarmiento AGACNP - 10/01/2017 7:27 AM [...] (baseline from previous TBI ) Neck: in [place] collar Respiratory: CTA bilaterally, lungs symmetrical, equal chest wall rise, no retractions CV: RRR GI: non tender, soft, active BS, last BM 09/30 : Patient voiding without difficulty Extremities: no peripheral edema, wiggles toes and toes pink and well perfused Musculoskeletal: 5/ printing worker supervisor strength on right, 3/5 printing worker supervisor strength on left FEN: on TPN Heme/ID: [...] AMS & delirium - numerous evaluations by PIN TICKET MACHINE OPERATOR with trials of PO - now s/p modified barium swallow x2 which indicates aspiration - continue NPO - PIN TICKET MACHINE OPERATOR reports that patient working on [...] . - C-collar at all times, use VALIDATION ARCHITECT when OOB - Follow-up with Neurosurgery on [...] with trauma team and sister. Sherine Sarmiento, [facility] [place] [phone] Associated attestation - Fidelina Shields MD - 10/02/2017 4:40 PM PDTAttending: I saw and examined Berlin Temple ([id number]) with KESHAWN Alexander on mornin g rounds 10/01/17 and agree with the assessment and plan as outlined in this note and partic ipated in the planning of care. Will trial DHT placement today, CT head unchanged. Suspect somnolence is medication side ef fect and, if persistent, may need to wean antipsychotic doses. Fidelina Shields MD Short Order [facility] Cook Division of Trauma, Critical Care and Acute Care Surgery Office: [phone] Pager: [phone] Christian Kelley PA-C - 09/30/2017 12:21 PM [...] Fixed and dilated on left Neck: in [place] collar Respiratory: CTA bilaterally, lungs symmetrical, equal chest wall rise, no retractions CV: RRR GI: non tender, soft, active BS, last BM 09/30 : Patient voiding without difficulty Extremities: no peripheral edema, wiggles toes and toes pink and well perfused Musculoskeletal: 5/5 printing worker supervisor strength on right, 3/5 printing worker supervisor strength on left FEN: on TPN Heme/ID: [...] AMS & delirium - numerous evaluations by PIN TICKET MACHINE OPERATOR with trials of PO - now s/p modified barium swallow x2 which indicates aspiration - continue NPO - PIN TICKET MACHINE OPERATOR reports that patient working on [...] . - C-collar at all times, use VALIDATION ARCHITECT when OOB - Follow-up with Neurosurgery on [...] PDTAttending: I saw and examined Berlin Temple ([id number]) with Christian Kelley PA-C on morning rounds 09/30 and agree with the assessment and plan as outlined in this note and participated in the planning of care. Mentally slower this morning, but non-focal. Received haldol overnight for sleep. Repeat head CT was unchanged so suspect etiology of slowed responsiveness is the antipsychotic dose . PIN TICKET MACHINE OPERATOR believes that, once collar off, may be able to take PO more effectively and thus will hold off on surgical feeding access. TPN is a temporary solution and if patient remains kaye nable will trial DHT tomorrow. Working with psychiatry for medication recommendations. Fidelina Shields MD Short Order [facility] Cook Division of Trauma, Critical Care and Acute Care Surgery Office: [phone] Pager: [phone] July Banegas PA-C - 09/30/2017 8:23 AM PDTBrief Neurosurgery Wound Check: Wound is dry, without erythema, not fluctuant. No acute swelling. Nylon in place. Will plan to follow peripherally for wound checks and remove nylons on 10/09. JULY BANEGAS PA-C [facility] [address] [place] [address] hristian Kelley PA-C - 09/29/2017 7:15 AM [...] and EOMs intact to exam Neck: in [place] collar Respiratory: CTA bilaterally, lungs symmetrical, equal [...] AMS & delirium - numerous evaluations by PIN TICKET MACHINE OPERATOR with trials of PO - [...] . - C-collar at all times, use VALIDATION ARCHITECT when OOB - Follow-up with Neurosurgery on [...] PDTAttending: I saw and examined Berlin Temple ([id number]) with Christian Kelley PA-C on morning rounds [...] in conjunction with psychiatry. Fidelina Shields MD Short Order [facility] Cook Division of Trauma, Critical Care and Acute Care Surgery Office: [phone] Pager: [phone] Christian Kelley PA-C - 09/28/2017 1:01 PM [...] he said, who, ariel? And then the LEAD VULCANIZING OPERATOR helped him make a call to [...] and EOMs intact to exam Neck: in [place] collar Respiratory: CTA bilaterally, lungs symmetrical, equal [...] very agitated today. - EKG today with Bicknell QTc calculated to be 428 - optimize [...] AMS & delirium - numerous evaluations by PIN TICKET MACHINE OPERATOR with trials of PO - [...] . - C-collar at all times, use VALIDATION ARCHITECT when OOB - Follow-up with Neurosurgery on [...] to communicate more toyoselin Munoz MD, FACS Short Order [facility], Trauma, Critical Care and Acute Care Surgery Chaz Munoz MD - 09/28/2017 10:13 AM PDTTrauma Staff Seen and examined this AM with team. I have concerns abotu behaviour, as he is consistently threatening RN and ancillary staff, even attempting swings. Behavior seems worse at night. I would favor increasing night time Haldol dose, and following EKGs. Chaz Munoz MD, FACS Short Order [place] Cook, Trauma, Critical Care and Acute Care [...] Dallin Bourgeois MD Neurosurgery PGY1 | Pager #[phone] Christian Begum PA-C - 09/27/2017 7:31 AM [...] able to have a linear conversation briefly PIN TICKET MACHINE OPERATOR requesting repeat barium swallow Current [...] incision healing , suture c/d/I Neck: in VALIDATION ARCHITECT Respiratory: unlabored on room air, lungs symmetrical, [...] AMS & delirium - numerous evaluations by PIN TICKET MACHINE OPERATOR with trials of PO - [...] . - C-collar at all times, use VALIDATION ARCHITECT when OOB - Follow-up with Neurosurgery on [...] cotinue TPN for now. EM CUNNINGHAM MD [facility] [address] [place] [address] Christian Kelley PA-C - 09/26/2017 6:48 AM [...] posterior scalp crani incision c/d/I Neck: in [place] collar Respiratory: unlabored on room air CV: [...] AMS & delirium - numerous evaluations by PIN TICKET MACHINE OPERATOR with trials of PO - [...] . - C-collar at all times, use VALIDATION ARCHITECT when OOB - Follow-up with Neurosurgery on [...] Continue NPO and TPN. EM CUNNINGHAM MD [facility] [address] [place] [address] Christian Kelley PA-C - 09/25/2017 7:49 AM [...] HEENT: EOMs intact to exam Neck: in VALIDATION ARCHITECT brace Respiratory: unlabored on room air CV: [...] AMS & delirium - numerous evaluations by PIN TICKET MACHINE OPERATOR with trials of PO - [...] . - C-collar at all times, use VALIDATION ARCHITECT when OOB - Follow-up with Neurosurgery on 10/21 with repeat X-rays #Blunt abdominal trauma #Splenic laceration S/p laparotomies x2. Fascia closed 09/02 Wound vac removed by patient, but wound remains duke n/dry/intact. [place] removed 09/17. #Left hemothorax Chest tube placed [...] wnl. Continue TPN. EM E MARJORIE, MD [facility] [address] [place] [address] Christian Kelley PA-C - 09/24/2017 11:07 AM [...] with agitation Having difficulty swallowing again - PIN TICKET MACHINE OPERATOR to re-eval and obtain barium [...] HEENT: EOMs intact to exam Neck: in VALIDATION ARCHITECT brace Respiratory: CTA bilaterally, lungs symmetrical, equal chest wall rise, no retractions CV: RRR GI: non distended, last BM 09/23 : good urine output Extremities: SCD's in place, no peripheral edema, wiggles toes and toes pink and well perfu sed Musculoskeletal: 5/5 strength in bilateral printing worker supervisor (but with slightly weaker on left) , [...] seroquel dose QHS for insomnia/restlessness at [facility] - Haldol 5mg q12hr prn for [...] likely 2/2 AMS & delirium - Failed PIN TICKET MACHINE OPERATOR eval 09/19 & 09/20, made NPO & dobhoff reinserted 09/21 but pulled overnight - Per PIN TICKET MACHINE OPERATOR on 09/21, ok for therapeutic [...] . - C-collar at all times, use VALIDATION ARCHITECT when OOB - Follow-up with Neurosurgery on 10/21 with repeat X-rays #Blunt abdominal trauma #Splenic laceration S/p laparotomies x2. Fascia closed 09/02 Wound vac removed by patient, but wound remains duke n/dry/intact. [place] removed 09/17. #Left hemothorax Chest tube placed [...] & folate started 09/21 Disposition: continue acute rievrs care, continue TPN, barium swallow pending CHRISTIAN [...] Start abx for dehiscence. EM CUNNINGHAM MD [facility] [address] [place] [address] Ginette Campos PA-C - 09/24/2017 9:31 AM [...] 4 extremities Unable to assess drift. Motor: Bundle Tier Bicep Tricep Delt R 5 5 5 [...] further questions or concerns. Ginette Campos PA-C [facility] [address] [place] [address] ELLGabriel Atkins AGACNP - 09/23/2017 6:32 AM [...] hiscence, draining minimal serosang fluid Neck: in VALIDATION ARCHITECT brace Respiratory: unlabored on room air CV: [...] seroquel dose QHS for insomnia/restlessness at [facility] - Repeat ECG 09/22 with QTc [...] likely 2/2 AMS & delirium - Failed PIN TICKET MACHINE OPERATOR eval 09/19 & 09/20, made NPO & dobhoff reinserted 09/21 but pulled overnight - Per PIN TICKET MACHINE OPERATOR on 09/21, ok for therapeutic [...] . - C-collar at all times, use VALIDATION ARCHITECT when OOB - Follow-up with Neurosurgery on [...] dysphagia & delir ium improves Sherine Sarmiento, [facility] [place] [phone] Dallin Deshpande MD - 09/22/2017 8:03 AM [...] Dallin Bourgeois MD Neurosurgery PGY1 | Pager #[phone] herine Atkins, AGACN - 09/22/2017 6:52 AM [...] 24hr events: - Therapeutic purees initiated by PIN TICKET MACHINE OPERATOR yesterday - Trickle feeds via Dobbhoff, pt pulled Dobbhoff yesterday evening- not replaced - SURGERY TECHNICIAN called around 2130 for new left facial [...] sluggish. Slight left facial droop Neck: in [place] collar Respiratory: unlabored on room air CV: [...] seroquel dose QHS for insomnia/restlessness at [facility]- - Repeat ECG 09/22 with Q Tc WNL. - Haldol 5mg q12hr prn for severe agitation #Substance abuse, concern for Alcohol withdrawal - CIWA discontinued 09/08, not scoring. - Thiamine & folate started 09/21 #Dysphagia, risk for aspiration #Protein calorie malnutirtion - likely 2/2 AMS & delirium - Failed PIN TICKET MACHINE OPERATOR eval 09/19 & 09/20, made NPO & dobhoff reinserted 09/21 but pulled overnight - Per PIN TICKET MACHINE OPERATOR on 09/21, ok for therapeutic [...] . - C-collar at all times, use VALIDATION ARCHITECT when OOB - Follow-up with Neurosurgery on 10/21 with repeat X-rays #Blunt abdominal trauma #Splenic laceration S/p laparotomies x2. Fascia closed 09/02 Wound vac removed by patient, but wound remains duke n/dry/intact. [place] removed 09/17. #Left hemothorax Chest tube placed [...] when dysphagia & delirium improves Sherine Sarmiento, [facility] Pg [phone] Associated attestation - Shiva Nieto MD,MPH - [...] Acute Care Surgery [facility] [phone] Sami Black - 09/21/2017 10:25 PM PDTBrief [...] in the morning. Plan: -neuro checks; page [phone] for any decline in neurological examination -pain control -Hard C collar at all times and place VALIDATION ARCHITECT prior to mobilizing OOB. Anticipated duration of Collar/VALIDATION ARCHITECT is 12 weeks -repeat CT head for any new decline in neurological exam and page [phone] -NPO at midnight tonight -please hold tonight's planned dose of Lovenox -further recommendations in the morning Sami Black MD, PhD PGY-3 Resident Neurosurgery [id number] signed by Sami Black at 09/21/2017 10:50 [...] Provena placem ent 24hr events: - Failed PIN TICKET MACHINE OPERATOR eval again yest morning, continued [...] reactive. Dobbhoff tube in place Neck: in [place] collar Respiratory: unlabored on room air CV: [...] likely 2/2 AMS & delirium - Failed PIN TICKET MACHINE OPERATOR eval 09/19 & 09/20, made NPO & dobhoff reinserted yesterday - Trickle feeds started this am at 20ml/hr, increase very slowly by 10ml every 12 hrs to go al of 75 due to hx of mesenteric hematomas and previous inability to tolerate TF - Per PIN TICKET MACHINE OPERATOR today, ok for therapeutic pureed [...] . - C-collar at all times, use VALIDATION ARCHITECT when OOB - Follow-up with Neurosurgery on 10/21 with repeat X-rays #Blunt abdominal trauma #Splenic laceration S/p laparotomies x2. Fascia closed 09/02 Wound vac removed by patient, but wound remains duke n/dry/intact. [place] removed 09/17. #Left hemothorax Chest tube placed [...] & delirium [place] [phone] Associated attestation - Fidelina Shields MD - 09/21/2017 9:36 PM PDTAttending: I saw and examined Berlin Temple ([id number]) with KESHAWN Alexander on mornin g rounds [...] enough to re-trial PO. Fidelina Shields MD Short Order [facility] Cook Division of Trauma, Critical Care and Acute Care Surgery Office: [phone] Pager: [phone] Sherine Sarmiento, AGACNP - 09/20/2017 7:41 AM [...] haldol given yesterday afternoon for agitation - PIN TICKET MACHINE OPERATOR paged to re-eval in afternoon after concern for aspiration, made NPO by PIN TICKET MACHINE OPERATOR - DARNELL SOLANO Current meds: [...] right pupil 3 and reactive Neck: in [place] collar Respiratory: unlabored on room air CV: [...] thick/pureed d iet. Made NPO yesterday by PIN TICKET MACHINE OPERATOR after concern for aspiration. This is likely 2/2 waxing & wan ing delirium & AMS - PIN TICKET MACHINE OPERATOR re-eval today recommend continue NPO d/t overt clinical signs of aspiration - Place Dobbhoff tube and restart feeds, slowly progress to goal - Stop TPN when tolerating tube feeds - PIN TICKET MACHINE OPERATOR will follow closely, as his [...] . - C-collar at all times, use VALIDATION ARCHITECT when OOB - Follow-up with Neurosurgery on 10/21 with repeat X-rays #Blunt abdominal trauma #Splenic laceration S/p laparotomies x2. Fascia closed 09/02 Wound vac removed by patient, but wound remains duke n/dry/intact. [place] removed 09/17. #Left hemothorax Chest tube placed [...] dysphagia & delirium i mproves Sherine Sarmiento, [facility] Pg [phone] Associated attestation - Fidelina Shields MD - 09/20/2017 9:34 PM PDTAttending: I saw and examined Berlin Temple ([id number]) with KESHAWN Alexander on mornin g rounds [...] dispo planning when able. Fidelina Shields MD Short Order [facility] Cook Division of Trauma, Critical Care and Acute Care Surgery Office: [phone] Pager: [phone] Mary Medrano MD,MPH - 09/19/2017 6:22 AM [...] downgraded from thin to thick liquids by PIN TICKET MACHINE OPERATOR Current meds: I have independently [...] intact, small Right fluctuant pseudomeningocele Neck: in [place] collar Respiratory: unlabored on room air CV: [...] DHT on09/19. - Cleared for diet by PIN TICKET MACHINE OPERATOR, tolerating purees, 749 Calories yesterday - Restart Calorie count: if taking >700 again will be OK for full po diet, otherwise replac e DHT and restart TF - Stop TPN tomorrow regardless - Still considering repeat CT abdomen/pelvis #Dysphagia DHTreplaced overnight 09/07. TF held due to emesis and possible ileus, aspiration risk. T pulled overnight on 09/18 - PIN TICKET MACHINE OPERATOR as able Resolved or chronic [...] . - C-collar at all times, use VALIDATION ARCHITECT when OOB - Follow-up with Neurosurgery on [...] M.D., M.P.H. Neurological Surgery Resident PGY-1 Pager: [phone] Associated attestation - Fidelina Shields MD - 09/19/2017 1:36 PM PDTAttending: I saw and examined Berlin Temple ([id number]) with the residents on morning rounds 09/19/17 and agree with the assessment and plan as outlined in this note and participated in the plan aashish of care. Improving po intake, will titrate TPN. Plan to DC TPN tomorrow and transition to PO vs PO + TF depending on calorie counts. Once of restraints will begin looking for placement. Fidelina Shields MD Short Order Fry Cook Division of Trauma, Critical Care and Acute Care Surgery Office: [phone] Pager: [phone] Mary Medrano MD,MPH - 09/18/2017 6:17 AM [...] fluctuant pseudomeningocele,Dobhoff tubein p lace Neck: in [place] collar Respiratory: unlabored on room air CV: [...] holding TF - Cleared for diet by PIN TICKET MACHINE OPERATOR, tolerating small quantities of purees - Will need repeat CT A/P within 1-2 days #Hypervolemia I&O approaching even. Appears to have been auto-diuresing. - Continue to monitor urine output - Monitor electrolytes, replete prn #Dysphagia DHTreplaced overnight 09/07. TF held due to emesis and possible ileus, aspiration risk. - PIN TICKET MACHINE OPERATOR as able #C7 bilateral lamina fractures #C6-T2 spinous process fractures Neurosurgery consulted. Non-operative management. Upright cervical X-rays completed on 09/14 . - C-collar at all times, use VALIDATION ARCHITECT when OOB - Follow-up with Neurosurgery on [...] by patient, but wound remains duke n/dry/intact. [place] removed 09/17. #Left hemothorax Chest tube placed [...] M.D., M.P.H. Neurological Surgery Resident PGY-1 Pager: [phone] signed by Fidelina Shields MD at 09/19/2017 3:58 PM PDT Associated attestation - Fidelina Shields MD - 09/19/2017 3:58 PM PDTAttending: I saw and examined Berlin Temple ([id number]) with the residents on morning rounds 09/18/17 and agree with the assessment and plan as outlined in this note and participated in the plan aashish of care. Fidelina Shields MD Short Order Fry Cook Division of Trauma, Critical Care and Acute Care Surgery Office: [phone] Pager: [phone] Mary Medrano MD,MPH - 09/17/2017 6:26 AM [...] fluctuant pseudomeningocele,Dobhoff tubein p lace Neck: in [place] collar Respiratory: unlabored on room air CV: [...] holding TF - Cleared for diet by PIN TICKET MACHINE OPERATOR, tolerating small quantities of purees #Hypervolemia I&O approaching even. Appears to have been auto-diuresing. - Continue to monitor urine output - Monitor electrolytes, replete prn #Dysphagia DHTreplaced overnight 09/07. TF held due to emesis and possible ileus, aspiration risk. - PIN TICKET MACHINE OPERATOR as able #C7 bilateral lamina fractures #C6-T2 spinous process fractures Neurosurgery consulted. Non-operative management. Upright cervical X-rays completed on 09/14 . - C-collar at all times, use VALIDATION ARCHITECT when OOB - Follow-up with Neurosurgery on [...] M.D., M.P.H. Neurological Surgery Resident PGY-1 Pager: [phone] signed by Fidelina Shields MD at 09/17/2017 2:29 PM PDT Associated attestation - Fidelina Shields MD - 09/17/2017 2:29 PM PDTAttending: I saw and examined Berlin Temple ([id number]) with the residents on morning rounds 09/17/17 [...] repeat C T abdomen/pelvis. Fidelina Shields MD Short Order Fry Cook Division of Trauma, Critical Care and Acute Care Surgery Office: [phone] Pager: [phone] Venita Pruitt PA-C - 09/16/2017 6:45 AM [...] HEENT: DHT in place, CARRI Neck: in [place] collar Respiratory: CTA bilaterally, lungs symmetrical, equal [...] daily - Haldol 5mg q12hr prn - PIN TICKET MACHINE OPERATOR: severe cognitive deficits - continue PIN TICKET MACHINE OPERATOR therapy #Bilious emesis #Ileus #Aspiration #Leukocytosis - bilious emesis overnight, trickle tube feeds stopped;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 CARDIOLOGY | [address] | [address] | | + + + + + [...] | + + + + + | [facility] [facility] | [address] | [place] [address] | | | SERVICES, CORE | VILMA [...] + | [facility] - | [address] | [place] [address] | | | [place] | | | | + + + [...] DEPT OF | [address] | [place] | | | CARDIOLOGY | [address] | [address] | | + + + + + [...] | + + + + + | [facility] | [address] | [place] [address] | | | NATALEE WORTHINGTON | V[place]MA [...] - | | | | | | [place] | | + +-------+ + + + + + | Specimen | + + | Blood - Blood | | (substance) | + + + + + + + | Performing | Address | City/State/Zipcode | Phone Number | | Organization | | | | + + + + + | [facility] - | [address] | [place] [address] | | | [place] | | | [...] [facility] | [address] | [place] [address] | | | SERVICES, CORE | PARK [...] | [facility] | [address] | [place] [address] | | | SERVICES, CORE | PARK [...] | + + + + + | [facility] | [address] | [place] [address] | | | SERVICES, CORE [...] | + + + + + | [facility] | [address] | [place] [address] | | | SERVICES, CORE | PARK [...] [facility] | [address] | [place] [address] | | | SERVICES, CORE | [address] | | | + + + + + MAGNESIUM, PLASMA (11/11/2017 9:06 AM PDT) + +-------+ + + + | Component | Value | Ref Range | Performed | Pathologist | | | | | At | Signature | + +-------+ + + + | MAGNESIUM,P | 2.1 | 1.6 - 2.6 mg/dL | [facility] | | | [place] | | | [...] [facility] | [address] | [place] [address] | | | SERVICES, NATALEE | VILMA [...] | + + + + + | [facility] | [address] | [place] [address] | | | SERVICES, CORE | VILMA [...] DEPT OF | [address] | [place], [place] | | | CARDIOLOGY | [address] | [address] | | + + + + + [...] [facility] | [address] | [place] [address] | | | ELIN, NATALEE | VILMA [...] 8 | 4 - 11 mmol/L | [facility] | | | GAP(ALB | | [...] | + + + + + | [facility] | [address] | [place] [address] | | | SERVICES, CORE | VILMA [...] | + + + + + | [facility] | [address] | [place] [address] | | | SERVICES, CORE | VILMA [...] | + + + + + | [facility] | [address] | [place] [address] | | | SERVICES, [facility] | [address] | | | + [...] [facility] | [address] | [place] [address] | | | SERVICES, CORE | PARK [...] the MDRD equation recommended by the | [facility] | | National Kidney Disease Education [...] | + + + + + | [facility] | [address] | [place] [address] | | | ELIN, NATALEE | [address] [...] [facility] | [address] | [place], [place] | | | CARDIOLOGY | [address] | [address] | | + + + + + CT HEAD WO CONTRAST (11/07/2017 3:43 PM PDT) + + | Specimen | + + | | + + + + + | Narrative | Performed At | + + + | EXAM: CT HEAD WITHOUT CONTRAST HISTORY: rowena s/p crani | [facility] | | COMPARISON: [...] [facility] | [address] | [place], [place] | | | CARDIOLOGY | [address] | [address] | | + + + + + [...] | + + + + + | [facility] | [address] | [place] [address] | | | NATALEE WORTHINGTON | V[place] [...] | + + + + + | [facility] | [address] | [place] [address] | | | NATALEE WORTHINGTON | V[place] [...] + + + + | PRODUCT | [id number] | | [facility] | | | UNIT [...] + + + + | EXPIRATION | [id number] | | [facility] | | | DATE [...] + + + + | BLOOD | [id number] | | [facility] | | | PRODUCT [...] | + + + + + | [facility] | [address] | [place] [address] | | | SERVICES, | [address] [...] + + + + | PRODUCT | [id number] | | [facility] | | | UNIT [...] + + + + | EXPIRATION | [id number] | | [facility] | | | DATE [...] + + + + | BLOOD | [id number] | | [facility] | | | PRODUCT [...] [facility] | [address] | [place] [address] | | | SERVICES, | [address] [...] | + + + + + | [facility] | [address] | [place] [address] | | | SERVICES, CORE | [address] [...] [facility] | [address] | [place] [address] | | | SERVICES, NATALEE | VILMA [...] | + + + + + | [facility] | [address] | [place] [address] | | | SERVICES, NATALEE | [address] | | | + + + + + OPERATION RECORD (11/06/2017 12:27 AM PDT) + + | Procedure Note | + + | Magdiel Stock MD - 11/06/2017 12:27 AM PDT Date of Service: 11/05/2017 Attending | | Surgeon: Magdiel Stock MD Oxidized Finish Plater(s): Rg Aiken MD | | Preoperative Diagnoses: [...] was placed in a horseshoe head of marketing with his C-collar still | | attached [...] the incision down to the cranium. Once [place] | | skull was reached circumferentially around the prior incision, a #1 Gerlach was used | | to subperiosteally dissect [...] transferred gently to his hospital | | [facility] where he was extubated by the anesthesiology team and brought to the PACU for | | further recovery.FRANKIE Nugent was present for the critical portions of the | | procedure as described in the note for this encounter.Sonal Nunez, | | [facility] [id number] [place], [place] | | [id number] Orina, MDJB/TAHIRLDD: 11/05/2017 20:38:01DT: 11/06/2017 | | 00:27:33Job #: [id number] | |HATTIE/DUC | | | | | | /[id number] | + + CT HEAD WO CONTRAST [...] Note | + + | Service Account, [employer] In Interface - 11/05/2017 8:20 PM [...] Surgeon: Magdiel | | | MD Dayami Oxidized Finish Plater: Rg Aiken MD Pre-op Diagnosis: | | [...] PGY-4 Neurological Surgery Pager | | | [phone] | | + + + CAPILLARY BLOOD [...] [facility] | [address] | [place], [place] | | | [facility] GE[facility] OF CARE | [address] | [address] | | | TESTS | | | [...] [facility] | [address] | [place], [place] | | | HILL, POINT OF CARE | [address] | [address] | | | TESTS | | | [...] Note | + + | Service Account, [employer] In Interface - 11/05/2017 11:31 AM PDT [...] | + + + + + | [facility] | [address] | [place] [address] | | | NATALEE WORTHINGTON | V[place] [...] | + + + + + | [facility] | [address] | [place] [address] | | | SERVICES, CORE | [address] [...] | + + + + + | [facility] | [address] | [place] [address] | | | SERVICES, CORE | [address] [...] | + + + + + | [facility] | [address] | [place] [address] | | | ELIN, NATALEE | [address] [...] + + + + | PRODUCT | [id number] | | [facility] | | | UNIT [...] + + + + | EXPIRATION | [id number] | | [facility] | | | DATE [...] + + + + | BLOOD | [id number] | | [facility] | | | PRODUCT [...] | + + + + + | [facility] | [address] | [place] [address] | | | SERVICES, | [address] [...] + + + + | PRODUCT | [id number] | | [facility] | | | UNIT [...] + + + + | EXPIRATION | [id number] | | [facility] | | | DATE [...] + + + + | BLOOD | [id number] | | [facility] | | | PRODUCT [...] [facility] | [address] | [place] [address] | | | SERVICES, | [address] [...] [facility] | [address] | [place] [address] | | | SERVICES, CORE | [address] [...] [facility] | [address] | [place] [address] | | | SERVICES, | [address] [...] [facility] | [address] | [place] [address] | | | SERVICES, | [address] [...] | + + + + + | [facility] | [address] | [place] [address] | | | SERVICES, NATALEE | V[place] [...] OF | [address] | [place], [place] | | | CARDIOLOGY | [address] | [address] | | + + + + + [...] [facility] | [address] | [place] [address] | | | SERVICES, CORE | [address] [...] | + + + + + | [facility] | [address] | [place] [address] | | | SERVICES, NATALEE | [address] [...] + | [facility] - | [address] | [place] [address] | | | [place] | | | [...] [facility] | [address] | [place] [address] | | | NATALEE WORTHINGTON | P[address] [...] | + + + + + | [facility] | [address] | [place] [address] | | | SERVICES, CORE [...] the MDRD equation recommended by the | [facility] | | National Kidney Disease Education [...] [facility] | [address] | [place] [address] | | | SERVICES, CORE | PARK [...] [facility] | [address] | [place] [address] | | | NATALEE WORTHINGTON | P[address] [...] [facility] | [address] | [place] [address] | | | NATALEE WORTHINGTON | [address] [...] | + + + + + | [facility] [employer] | [address] | [place] [address] | | | SERVICES, CORE | [address] [...] [facility] | [address] | [place] [address] | | | SERVICES, CORE | [address] [...] [facility] | [address] | [place] [address] | | | ELIN, NATALEE | VILMA [...] + + | [facility] | [address] | [place], [place] | | | CARDIOLOGY | [address] | [address] | | + + + + + [...] | + + + + + | [facility] | [address] | [place] [address] | | | SERVICES, CORE | [address] [...] the MDRD equation recommended by the | [facility] | | National Kidney Disease Education [...] | + + + + + | [facility] | [address] | [place] [address] | | | SERVICES, [facility] | [address] | | | + [...] OF | [address] | [place], [place] | | | CARDIOLOGY | [address] | [address] | | + + + + + [...] the MDRD equation recommended by the | [facility] | | National Kidney Disease Education [...] | + + + + + | [facility] | [address] | [place] [address] | | | SERVICES, CORE | [address] | | | + + + + + MAGNESIUM, PLASMA (10/31/2017 5:27 AM PDT) + +-------+ + + + | Component | Value | Ref Range | Performed | Pathologist | | | | | At | Signature | + +-------+ + + + | MAGNESIUM,P | 1.9 | 1.6 - 2.6 mg/dL | [facility] | | | [place] | | | [...] [facility] | [address] | [place] [address] | | | NATALEE WORTHINGTON | [address] [...] - [facility] | [address] | [place] | | | [facility] | [address] | [address] | | | TESTS | | | [...] [facility] | [address] | [place] [address] | | | NATALEE WORTHINGTON | PARK [...] | + + + + + | [facility] [employer] | [address] | [place] [address] | | | SERVICES, CORE | [address] [...] Note | + + | Service Account, [employer] In Interface - 10/29/2017 12:13 PM PDT [...] [facility] | [address] | [place], [place] | | | [facility] OF CARE | [address] | [address] | | | TESTS | | | [...] [facility] | [address] | [place] [address] | | | SERVICES, CORE | [address] [...] the MDRD equation recommended by the | [facility] | | National Kidney Disease Education [...] | + + + + + | [facility] | [address] | [place] [address] | | | NATALEE WORTHINGTON | [address] [...] (H) | 70 - 99 mg/dL | [facility] - | | | GLUCOSE, | [...] [facility] | [address] | [place], [place] | | | [place] [facility]ARE | [address] | [address] | | | TESTS | | | [...] DEPT OF | [address] | [place], [place] | | | CARDIOLOGY | [address] | [address] | | + + + + + [...] - [facility] | [address] | [place], [place] | | | GL[facility]IA GENAO OF CARE | [address] | [address] | | | TESTS | | | [...] [facility] | [address] | [place], [place] | | | [facility] | [address] | [address] | | | TESTS | | | [...] | + + + + + | [facility] | [address] | [place] [address] | | | SERVICES, CORE | [address]ARK [...] + | [facility] - | [address] | [place] [address] | | | [place] | | | [...] 200-499 mg/dL Very High: >=500 mg/dL | [facility] CORE | + + + + + + + + | Performing | Address | City/State/Zipcode | Phone Number | | Organization | | | | + + + + + | [facility] | [address] | [place] [address] | | | NATALEE WORTHINGTON | [address] [...] | + + + + + | [facility] | [address] | [place] [address] | | | SERVICES, CORE | PARK [...] [facility] | [address] | [place] [address] | | | SERVICES, CORE | [address] [...] | + + + + + | [facility] | [address] | [place] [address] | | | SERVICES, NATALEE | [address] [...] | + + + + + | [facility] | [address] | [place] [address] | | | SERVICES, CORE | [address] | | | + + + + + CAPILLARY BLOOD GLUCOSE (NO CHG)CITLALY (10/28/2017 12:34 AM PDT) + +---------+ + [...] [facility] | [address] | [place], [place] | | | [facility] GE[facility] CARE | [address] | [address] | | | TESTS | | | [...] - [facility] | [address] | [place], [place] | | | [facility] | [address] | [address] | | | TESTS | | | [...] Note | + + | Service Account, [employer] In Interface - 10/28/2017 9:21 AM [...] Note | + + | Service Account, [employer] In Interface - 10/27/2017 6:29 PM [...] and TPN Procedure | | | location: Unit:[facility] Room: 4 Providers: Attending name: [...] correct | | | patient, procedure, equipment, technical support representative and site/side marked as | [...] vein. Catheter lot number: | | | [id number] with a length of 55 cm was [...] - [facility] | [address] | [place], [place] | | | [facility] | [address] | [address] | | | TESTS | | | [...] DEPT OF | [address] | [place], [place] | | | CARDIOLOGY | [address] | [address] | | + + + + + [...] + + + | [facility] | [address] | [place], [place] | | | [facility] | [address] | [address] | | | TESTS | | | [...] | + + + + + | [facility] | [address] | [place] [address] | | | SERVICES, CORE | [address] [...] the MDRD equation recommended by the | [facility] | | National Kidney Disease Education [...] | + + + + + | [facility] | [address] | [place] [address] | | | SERVICES, CORE | [address] [...] (H) | 70 - 99 mg/dL | [facility] - | | | GLUCOSE, | [...] [facility] | [address] | [place] | | | [facility] CARE | [address] | [address] | | | TESTS | | | [...] [facility] | [address] | [place] | | | [facility] | [address] | [address] | | | TESTS | | | [...] PIYUSH | [address] | [place], [place] | | | GLORIA GENAO OF [facility] | [address] | [address] | | | TESTS | | | [...] [facility] | [address] | [place] [address] | | | SERVICES, NATALEE | VILMA [...] | + + + + + | [facility] [employer] | [address] | [place] [address] | | | SERVICES, NATALEE | VILMA [...] PIYUSH | [address] | [place], [place] | | | [facility] | [address] | [address] | | | TESTS | | | [...] the MDRD equation recommended by the | [facility] | | National Kidney Disease Education Program. [...] | + + + + + | [facility] | [address] [facility] | [place] [address] | | | NATALEE WORTHINGTON | VILMA [...] RAPHAELAM | [address] | [place], [place] | | | GLORIA GENAO OF [facility] | [address] | [address] | | | TESTS | | | [...] DEPT OF | [address] | [place], [place] | | | CARDIOLOGY | [address] | [address] | | + + + + + [...] PICKETT | [address] | [place], [place] | | | GLORIA GENAO OF [facility] | [facility] | [address] | | | TESTS | | | [...] | [facility] | [address] | [place], [place] | | | CARDIOLOGY | [address] | [address] | | + + + + + [...] [facility] | [address] | [place] [address] | | | SERVICES, CORE | PARK [...] - | | | | | | [facility] | | + + + + + + + + | Specimen | + + | Blood - Blood | | (substance) | + + + + + + + | Performing | Address | City/State/Zipcode | Phone Number | | Organization | | | | + + + + + | [facility] | [address] | [place] [address] | | | [facility] [place] [facility] | | | | + + + [...] | + + + + + | [facility] | [address] | [place] [address] | | | SERVICES, CORE | PARK [...] | + + + + + | [facility] | [address] | [place] [address] | | | SERVICES, CORE | VILMA [...] | + + + + + | [facility] | [address] | [place] [address] | | | SERVICES, CORE | PARK [...] [facility] | [address] | [place] [address] | | | SERVICES, CORE | PARK [...] [facility] | [address] | [place] [address] | | | SERVICES, CORE | PARK [...] SELENA MCNAIR | [address] | [place] [address] | | | SERVICES, CORE | VILMA [...] [facility] | [address] | [place] [address] | | | SERVICES, CORE | PARK [...] | + + + + + | [facility] | [address] | [place] [address] | | | SERVICES, CORE | VILMA [...] [facility] | [address] | [place] [address] | | | SERVICES, CORE | PARK [...] | + + + + + | [facility] | [address] | [place] [address] | | | NATALEE WORTHINGTON | PARK [...] | + + + + + | [facility] [employer] | [address] | [place] [address] | | | SERVICES, CORE | VILMA [...] | | | correct patient, procedure, equipment, technical support representative and site/side | | | [...] | area Basilic vein. Catheter lot number: [id number] with a length of 55 | | [...] | | | 10/24/2017 3:42 PM Preliminary: Julina Perkins MD Dictation | | | initiated: [...] [facility] | [address] | [place], [place] | | | GLORIA GENAO OF [employer] | [facility] | [address] | | | TESTS | | | [...] | | Surgical Critical Care, PGY7 Pager: [phone] | | + + + CAPILLARY BLOOD [...] - [facility] | [address] | [place], [place] | | | [facility] | [address] | [address] | | | TESTS | | | [...] + + + | [facility] | [address] | [place], [place] | | | [facility] | [address] | [address] | | | TESTS | | | [...] [facility] | [address] | [place] [address] | | | SERVICES, CORE | PARK [...] | + + + + + | [facility] | [address] | [place] [address] | | | NATALEE WORTHINGTON | VILMA [...] [facility] | [address] | [place], [place] | | | GLORIA GENAO OF CARE | [address] | [address] | | | TESTS | | | [...] [facility] | [address] | [place] [address] | | | SERVICES, CORE | PARK [...] the MDRD equation recommended by the | [facility] | | National Kidney Disease Education [...] | + + + + + | [facility] | [address] | [place] [address] | | | SERVICES, NATALEE | VILMA [...] [facility] DEPT OF | [address] [facility] | [place], [place] | | | CARDIOLOGY | [address] | [address] | | + + + + + IR GASTROSTOMY TUBE EXCHANGE (10/22/2017 2:42 PM PDT) + + | Specimen | + + | | + + + + + | Narrative | Performed At | + + + | Procedure: Gastrostomy tube exchange Primary attending | [facility] | | gas plant specialist: Shade Goodwin M.D. Preoperative diagnosis: | RADIOLOGY [...] Procedure: | | Gastrostomy tube exchangePrimary attending gas plant specialist: Shade Goodwin | | BrynPreoperative diagnosis: Malfunctioning [...] Account, Kostas Res In Interface - 10/22/2017 10:34 AM [...] | + + + + + | [facility] | [address] [facility] | [place], [place] | | | CARDIOLOGY | [address] | [address] | | + + + + + [...] Note | + + | Service Account, RadiTeamleader Res In Interface - 10/22/2017 8:06 AM [...] tube balloon. Significant results were discussed with DrSelvin | | Ilan on 10/22/2017 4:30 AM [...] [facility] | [address] | [place] [address] | | | SERVICES, CORE | PARK [...] the MDRD equation recommended by the | [facility] | | National Kidney Disease Education [...] | + + + + + | [facility] | [address] | [place] [address] | | | NATALEE WORTHINGTON | VILMA [...] OF | [address] | [place], [place] | | | CARDIOLOGY | [facility] | [address] | | + + + + + [...] | + + + + + | [facility] | [address] | [place] [address] | | | NATALEE WORTHINGTON | VILMA [...] | + + + + + | [facility] | [address] | [place] [address] | | | SERVICES, NATALEE | VILMA [...] DEPT OF | [address] | [place], [place] | | | CARDIOLOGY | [address] | [address] | | + + + + + [...] [facility] | [address] | [place] [address] | | | SERVICES, NATALEE | VILMA [...] | + + + + + | [facility] | [address] | [place] [address] | | | ELIN, NATALEE | VILMA [...] DEPT OF | [address] | [place], [place] | | | CARDIOLOGY | [address] | [address] | | + + + + + [...] | + + + + + | [facility] | [address] | [place] [address] | | | ELIN, NATALEE | VILMA [...] | + + + + + | [facility] | [address] | [place] [address] | | | SERVICES, CORE | VILMA [...] | + + + + + | [facility] | [address] | [place], [place] | | | CARDIOLOGY | [address] | [address] | | + + + + + [...] | + + + + + | [facility] | [address] | [place] [address] | | | SERVICES, CORE | PARK [...] [facility] | [address] | [place] [address] | | | NATALEE WORTHINGTON | VILMA [...] Note | + + | Service Account, CIDCO In Interface - 10/15/2017 3:58 PM PDT [...] DEPT OF | [address] | [place], [place] | | | CARDIOLOGY | [address] | [address] | | + + + + + [...] [facility] | [address] | [place], [place] | | | GLORIA GENAO OF [employer] | [address] | [address] | | | TESTS | | | [...] | + + + + + | [facility] | [address] | [place] [address] | | | SERVICES, CORE | VILMA [...] (H) | 70 - 99 mg/dL | [facility] - | | | GLUCOSE, | [...] PICKETT | [address] | [place], [place] | | | GLORIA GENAO OF CARE | [facility] | [address] | | | TESTS | | | [...] DEPT OF | [address] | [place], [place] | | | CARDIOLOGY | [address] | [address] | | + + + + + [...] [facility] | [address] | [place] [address] | | | SERVICES, CORE | PARK [...] the MDRD equation recommended by the | [facility] | | National Kidney Disease Education [...] | + + + + + | [facility] | [address] | [place] [address] | | | SERVICES, CORE | [address] | | | + + + + + MAGNESIUM, PLASMA (10/14/2017 4:53 AM PDT) + +-------+ + + + | Component | Value | Ref Range | Performed | Pathologist | | | | | At | Signature | + +-------+ + + + | MAGNESIUM,P | 1.7 | 1.6 - 2.6 mg/dL | [facility] | | | [facility] | | | [...] + + | [facility] | [address] | [place] [address] | | | NATALEE WORTHINGTON | V[place]MA [...] [facility] | [address] | [place], [place] | | | [facility]ARE | [address] | [address] | | | TESTS | | | [...] (H) | 70 - 99 mg/dL | [facility] - | | | GLUCOSE, | [...] + + + | SELENA PICKETT | [address] | [place], [place] | | | GLORIA GENAO OF [facility] | [address] | [address] | | | TESTS | | | [...] | + + + + + | [facility] | [address] | [place] [address] | | | NATALEE WORTHINGTON | V[place]MA [...] | + + + + + | [facility] [employer] | [address] [facility] | [place] [address] | | | ELIN, NATALEE | [address] | | | + + + + + OPERATION RECORD (10/12/2017 8:50 PM PDT) + + | Procedure Note | + + | Pilar Cotto MD - 10/12/2017 8:50 PM PDT Date of Service: 10/12/2017 | | Attending Surgeon: Chaz Munoz MD Oxidized Finish Plater(s): Randell Dixon M.D., | | fellow. George [...] 10/12/2017 19:50:06DT: 10/12/2017 20:50:54Job #: | | [id number] | + + X-RAY PORTABLE CHEST 1 [...] [facility] | [address] | [place], [place] | | | GLORIA GENAO OF [employer] | [address] | [address] | | | TESTS | | | [...] report as now presented. Final signature: Mason Tim | | | MD Daniel 10/12/2017 [...] | + + + + + | [facility] | [address] [facility] | [place] [address] | | | SERVICES, CORE | VILMA [...] [facility] | [address] | [place] [address] | | | SERVICES, CORE [...] | + + + + + | [facility] | [address] | [place] [address] | | | SERVICES, CORE | VILMA [...] | | SRIDEVI | | | | 10-11-2017 16:37:07 | [...] [facility] OF | [address] | [place], [place] | | | CARDIOLOGY | [address] | [address] | | + + + + + [...] DEPT OF | [address] | [place], [place] | | | CARDIOLOGY | [address] | [address] | | + + + + + [...] | + + + + + | [facility] | [address] | [place] [address] | | | SERVICES, CORE | PARK [...] [facility] | [address] | [place] [address] | | | SERVICES, CORE | PARK [...] | + + + + + | [facility] | [address] [facility] | [place] [address] | | | [facility] | [address] | | | + + + + + PROCEDURE NOTE (10/10/2017 10:00 PM PDT) + + + | Narrative | Performed At | + + + | Darius Link MD 10/12/2017 11:11 AM OPERATIVE REPORT | | | DATE OF OPERATION: 10/10/2017 ATTENDING SURGEON: 1. Dr. Munoz | | | VETERANS' COUNSELOR: 1. Darius Link MD INDICATIONS: Dysphagia | [...] Open SPECIMENS:: 1.None DRAINS: | | | 1.[facility] Button Gastrostomy tube COMPLICATIONS: 1. None | [...] | | | [place] [id number] Chief Resident | | | Neurosurgery | [...] | + + + + + | [facility] | [address] [facility] | [place] [address] | | | SERVICES, CORE | VILMA [...] [facility] | [address] | [place] [address] | | | ELIN, NATALEE | PARK [...] | + + + + + | [facility] | [address] | [place] [address] | | | SERVICES, [facility] | [address] | | | + + + + + OPERATION RECORD (10/10/2017 12:40 PM PDT) + + | Procedure Note | + + | Magdiel Stock MD - 10/10/2017 12:40 PM PDT Date of Service: 10/10/2017 Attending | | Surgeon: Magdiel Stock MD Oxidized Finish Plater(s): Cecilia Hernandez, | | . Preoperative Diagnoses: [...] | the note for this encounter.Sonal Nunez [facility] [id number] [facility] | | [place] [id number] Orina, MDFAH/MODLDD: | | 10/10/2017 11:52:15DT: 10/10/2017 12:40:41Job #: [id number] | | | | | |I was present for the critical portions of the procedure as described in the note for this encounter. | | | |Magdiel Stock MD | | | |Magdiel Stock MD | |[address] | |[address] [facility] | |[facility] | |[place] [address] | |[phone] | | | | | |Magdiel Stock MD | |FAH/MODL | | | | | | /[id number] | + + X-RAY ABDOMEN 1 VIEW [...] + | [facility] | [address] | [place] [address] | | | [place] | | | [...] + | [facility] | [address] | [place] [address] | | | [place] | | | [...] Gram Stain: No squamous epithelial cells | [place] | | Many polymorphonuclear cells No organisms seen | | + + + + + + + + | Performing | Address | City/State/Zipcode | Phone Number | | Organization | | | | + + + + + | [facility] | [address] | [place] [address] | | | [facility] | | | | + + [...] detected | [facility] - | | | [place] | + + + + + + + + | Performing | Address | City/State/Zipcode | Phone Number | | Organization | | | | + + + + + | [facility] | [address] | [place] [address] | | | [place] | | | [...] | + + + + + | [facility] | [address] | [place] [address] | | | [place] | | | | + + + [...] + | [facility] | [address] | [place] [address] | | | [facility] | | | | + + [...] + | [facility] | [address] | [place] [address] | | | [place] | | | [...] | + + + + + | [facility] - | [address] | [place] [address] | | | [place] | | | | + + + [...] No squamous epithelial cells No polymorphonuclear | [facility] - | | cells No organisms seen | [place] | + + + + + + + + | Performing | Address | City/State/Zipcode | Phone Number | | Organization | | | | + + + + + | [facility] | [address] | [place] [address] | | | [place] | | | [...] + | [facility] | [address] | [place] [address] | | | [place] | | | [...] Stain: No squamous epithelial cells | [facility] | | Moderate polymorphonuclear cells No organisms seen | | + + + + + + + + | Performing | Address | City/State/Zipcode | Phone Number | | Organization | | | | + + + + + | [facility] | [address] | [place] [address] | | | [facility] | | | | + + [...] detected | [facility] - | | | [place] | + + + + + + + + | Performing | Address | City/State/Zipcode | Phone Number | | Organization | | | | + + + + + | [facility] | [address] | [place] [address] | | | [place] | | | | + + + [...] + | [facility] | [address] | [place] [address] | | | [place] | | | [...] Stain: No squamous epithelial cells | [facility] | | Moderate polymorphonuclear cells No organisms seen | | + + + + + + + + | Performing | Address | City/State/Zipcode | Phone Number | | Organization | | | | + + + + + | [facility] | [address] | [place] [address] | | | [place] | | | [...] + | [facility] | [address] | [place] [address] | | | [place] | | | | + + + [...] + | [facility] | [address] | [place] [address] | | | [place] | | | [...] Stain: No squamous epithelial cells | [facility] | | Moderate polymorphonuclear cells No organisms seen | | + + + + + + + + | Performing | Address | City/State/Zipcode | Phone Number | | Organization | | | | + + + + + | [facility] | [address] | [place] [address] | | | [place] | | | [...] + | [facility] | [address] | [place] [address] | | | [facility] | | | | + + [...] | + + + + + | [facility] | [address] [facility] | [place] [address] | | | SERVICES, CORE | [address] [...] | + + + + + | [facility] | [address] | [place] [address] | | | SERVICES, CORE | [address] | | | + + + + + MAGNESIUM, PLASMA (10/10/2017 2:36 AM PDT) + +-------+ + + + | Component | Value | Ref Range | Performed | Pathologist | | | | | At | Signature | + +-------+ + + + | MAGNESIUM,P | 2.2 | 1.6 - 2.6 mg/dL | [facility] | | | L[facility] | | | [...] [facility] | [address] | [place] [address] | | | SERVICES, NATALEE | V[place]MA [...] | + + + + + | [facility] [employer] | [address] [facility] | [place] [address] | | | SERVICES, NATALEE | V[place]MA [...] DEPT OF | [address] | [place], [place] | | | CARDIOLOGY | [address] | [address] | | + + + + + [...] + + + + | PRODUCT | [id number] | | [facility] | | | UNIT [...] + + + + | EXPIRATION | [id number] | | [facility] | | | DATE [...] + + + + | BLOOD | [id number] | | [facility] | | | PRODUCT [...] [facility] | [address] | [place] [address] | | | SERVICES, | [address] [...] + + + + | PRODUCT | [id number] | | [facility] | | | UNIT [...] + + + + | EXPIRATION | [id number] | | [facility] | | | DATE [...] + + + + | BLOOD | [id number] | | [facility] | | | PRODUCT [...] [facility] | [address] | [place] [address] | | | SERVICES, | [address] [...] | + + + + + | [facility] | [address] | [place] [address] | | | SERVICES, | [address] [...] [facility] | [address] | [place] [address] | | | SERVICES, | [address] [...] | + + + + + | [facility] | [address] | [place] [address] | | | SERVICES, | [address] [...] | + + + + + | [facility] | [address] | [place] [address] | | | SERVICES, CORE | [address] | | | + + + + + 12 LEAD ECG (10/09/2017 10:03 AM PDT) + + + + + + | Component | Value | Ref Range | Performed | Pathologist | | | | | At | Signature | + + + + + + | VENTRICULAR | 61 | bpm | [facility] | | | RATE | | [...] + + | [facility] | [address] | [place], [place] | | | CARDIOLOGY | [address] | [address] | | + + + + + [...] Note | + + | Service Account, CIDCO In Interface - 10/08/2017 10:47 AM PDT [...] + + + | [facility] | [address] | [place], [place] | | | GLORIA GENAO OF CARE | [address] | [address] | | | TESTS | | | [...] [facility] | [address] | [place] [address] | | | NATALEE WORTHINGTON | V[place]MA [...] | + + + + + | [facility] | [address] [facility] | [place] [address] | | | SERVICES, CORE | [address] [...] | + + + + + | [facility] | [address] [facility] | [place] [address] | | | SERVICES, CORE | [address] [...] [facility] | [address] | [place], [place] | | | GLORIA GENAO OF GM | [facility] | [address] | | | TESTS | | | [...] [facility] | [address] | [place], [place] | | | GLORIA GENAO OF GM | [facility] | [address] | | | TESTS | | | [...] (H) | 70 - 99 mg/dL | [facility] - | | | GLUCOSE, | [...] [facility] | [address] | [place], [place] | | | [facility] | [address] | [address] | | | TESTS | | | [...] [facility] | [address] | [place] | | | GLORIA GENAO OF CARE | [facility] | [address] | | | TESTS | | | [...] [facility] | [address] | [place] | | | [facility] CARE | [facility] | [address] | | | TESTS | | | [...] | [facility] | [address] [facility] | [place] [address] | | | SERVICES, CORE | PARK [...] [facility] | [address] | [place] [address] | | | SERVICES, CORE | [address] [...] the MDRD equation recommended by the | [facility] | | National Kidney Disease Education [...] | + + + + + | [facility] | [address] | [place] [address] | | | ELIN, NATALEE | V[place]MA [...] - [facility] | [address] | [place], [place] | | | [facility]ARE | [address] | [address] | | | TESTS | | | [...] [facility] | [address] | [place] | | | GLORIA GENAO OF [facility] | [address] | [address] | | | TESTS | | | [...] DEPT OF | [address] | [place], [place] | | | CARDIOLOGY | [address] | [address] | | + + + + + [...] [facility] | [address] | [place] | | | [facility]ARE | [facility] | [address] | | | TESTS | | | [...] | + + + + + | [facility] | [address] | [place] [address] | | | SERVICES, CORE | V[place]MA [...] [facility] | [address] | [place] [address] | | | SERVICES, CORE | [address] [...] | + + + + + | [facility] | [address] | [place] [address] | | | SERVICES, NATALEE | V[place]MA [...] (H) | 70 - 99 mg/dL | [facility] - | | | GLUCOSE, | [...] [facility] | [address] | [place], [place] | | | GLORIA GENAO OF [facility] | [facility] | [address] | | | TESTS | | | [...] [facility] | [address] | [place], [place] | | | [facility] CARE | [address] | [address] | | | TESTS | | | [...] [facility] | [address] | [place], [place] | | | HILL, POINT OF CARE | [address] | [address] | | | TESTS | | | [...] [facility] | [address] | [place], [place] | | | GLORIA GENAO OF [facility] | [address] | [address] | | | TESTS | | | | + + + + + 12 LEAD ECG (10/05/2017 8:50 AM PDT) + + + + + + | Component | Value | Ref Range | Performed | Pathologist | | | | | At | Signature | + + + + + + | VENTRICULAR | 64 | bpm | [facility] | | | RATE | | [...] + + | [facility] | [address] | [place], [place] | | | CARDIOLOGY | [address] | [address] | | + + + + + [...] | + + + + + | [facility] | [address] | [place] [address] | | | SERVICES, CORE | [address]ARK [...] [facility] | [address] | [place] [address] | | | SERVICES, NATALEE | VILMA [...] | + + + + + | [facility] | [address] [facility] | [place] [address] | | | ELIN, NATALEE | [address] [...] [facility] | [address] | [place] | | | GLORIA GENAO OF CARE | [facility] | [address] | | | TESTS | | | [...] (H) | 70 - 99 mg/dL | [facility] - | | | GLUCOSE, | [...] [facility] | [address] | [place] | | | [facility] | [address] | [address] | | | TESTS | | | [...] [facility] | [address] | [place] | | | GLORIA GENAO OF [employer] | [facility] | [address] | | | TESTS | | | [...] [facility] | [address] | [place] | | | GLORIA GENAO OF CARE | [address] | [address] | | | TESTS | | | [...] (H) | 70 - 99 mg/dL | [facility] - | | | GLUCOSE, | [...] [facility] | [address] | [place], [place] | | | GLORIA GENAO OF [facility] | [address] | [address] | | | TESTS | | | [...] [facility] | [address] | [place] [address] | | | NATALEE WORTHINGTON | V[place]MA [...] | + + + + + | [facility] | [address] | [place] [address] | | | SERVICES, CORE | VILMA [...] | + + + + + | [facility] | [address] | [place] [address] | | | SERVICES, CORE | V[place]MA [...] (H) | 70 - 99 mg/dL | [facility] - | | | GLUCOSE, | [...] [facility]ET[facility] | [address] | [place], [place] | | | GLORIA GENAO OF [facility] | [address] | [address] | | | TESTS | | | [...] [facility] | [address] | [place], [place] | | | [facility] OF CARE | [address] | [address] | | | TESTS | | | [...] | + + + + + | [facility] | [address] [facility] [address] | [place] [address] | | | SERVICES, CORE | PARK [...] by | | | | | | PayTouch,500 | | | | | | Neva Pickard, [facility],[place] | | | | | | [phone] | | | | | | [phone].[facility]. | | | | | | Gui [...] | + + + + + | [facility] | [address] | [place], [place] | | | [facility] | | [address] | | + + + + + [...] [facility] | [address] | [place] [address] | | | SERVICES, CORE | PARK [...] | + + + + + | [facility] | [address] | [place] [address] | | | NATALEE WORTHINGTON | [address] | | | + + + + + HIV-1,2 AB/HIV-1 P24 AG SCRGiuseppe (10/03/2017 3:36 PM PDT) + + + [...] modified from | [facility] | | original business development coordinator's approved specifications. The performance | LABORATORY | | of the GROCERY SPECIALIST HIV Combo test, with or without confirmation, was not | SERVICES, | | tested in pediatric patients less than 2 years of age. [facility] | SPECIAL IMM + | [...] | + + + + + | [facility] | [address] | [place] [address] | | | SERVICES SPECIAL | [address] [...] - [facility] | [address] | [place], [place] | | | GLORIA GENAO OF CARE | [address] | [address] | | | TESTS | | | [...] + + + | [facility] | [address] | [place], [place] | | | [facility] | [address] | [address] | | | TESTS | | | [...] | + + + + + | [facility] | [address] | [place] [address] | | | NATALEE WORTHINGTON | [address] [...] | + + + + + | [facility] | [address] | [place] [address] | | | ELIN, NATALEE | [address] [...] | + + + + + | [facility] | [address] | [place] [address] | | | SERVICES, CORE | V[address] [...] PIYUSH | [address] | [place], [place] | | | GLORIA GENAO OF [facility] | [address] | [address] | | | TESTS | | | [...] + + + | [facility] PICK[facility] | [address] | [place], [place] | | | GL[facility] GENAO [facility] CARE | [address] | [address] | | | TESTS | | | [...] + + | SELENA GEET OF | [address] | [place], [place] | | | CARDIOLOGY | [address] | [address] | | + + + + + [...] PICKETT | [address] | [place], [place] | | | GLORIA GENAO OF [facility] | [address] | [address] | | | TESTS | | | [...] | | |These results were discussed with hSerine Sarmiento on 10/02/2017 10:20 AM by Marcelo [...] [facility] | [address] | [place], [place] | | | [facility] | [address] | [address] | | | TESTS | | | [...] | + + + + + | [facility] | [address] | [place] [address] | | | SERVICES, CORE | [address] | | | + + + + + MAGNESIUM, PLASMA (10/02/2017 5:12 AM PDT) + +-------+ + + + | Component | Value | Ref Range | Performed | Pathologist | | | | | At | Signature | + +-------+ + + + | MAGNESIUM,P | 2.1 | 1.6 - 2.6 mg/dL | [facility] | | | LASMA | | | [...] | + + + + + | [facility] | [address] | [place] [address] | | | SERVICES, CORE | PARK [...] | + + + + + | [facility] | [address] | [place] [address] | | | NATALEE WORTHINGTON | VILMA [...] PIYUSH | [address] | [place], [place] | | | [facility] GE[facility] CARE | [address] | [address] | | | TESTS | | | [...] PICKETT | [address] | [place], [place] | | | [facility] CARE | [address] | [address] | | | TESTS | | | [...] Note | + + | Service Account, [employer] In Interface - 10/01/2017 2:15 PM [...] + | [facility] | [address] | [place], [place] | | | [facility] | [address] | [address] | | | TESTS | | | [...] MARQU[facility] | [address] | [place], [place] | | | [facility] CARE | [address] | [address] | | | TESTS | | | [...] [facility] | [address] | [place] [address] | | | SERVICES, CORE | PARK [...] [facility] | [address] | [place] [address] | | | SERVICES, CORE | PARK [...] the MDRD equation recommended by the | [facility] | | National Kidney Disease Education Program. [...] | + + + + + | [facility] | [address] | [place] [address] | | | NATALEE WORTHINGTON | VILMA [...] MARQUAM | [address] | [place], [place] | | | [facility] CARE | [address] | [address] | | | TESTS | | | [...] PICKETT | [address] | [place], [place] | | | [facility] | [address] | [address] | | | TESTS | | | [...] [facility] | [address] [facility] | [place], [place] | | | CARDIOLOGY | [address] | [address] | | + + + + + [...] RAPHAEL[facility] | [address] | [place], [place] | | | GLORIA GENAO OF GM | [facility] | [address] | | | TESTS | | | [...] (H) | 70 - 99 mg/dL | [facility] - | | | GLUCOSE, | [...] RAPHAELAM | [address] | [place], [place] | | | [facility] GE[facility]O OF [facility] | [address] | [address] | | | TESTS | | | [...] for MCV, MCHC, PLT, IG% and IG# bryant | [facility] | | 09/05/2017 | LABORATORY | | | NATALEE WORTHINGTON | + + + + + + + + | Performing | Address | City/State/Zipcode | Phone Number | | Organization | | | | + + + + + | [facility] | [address] | [place] [address] | | | NATALEE WORTHINGTON | PARK [...] | + + + + + | [facility] | [address] | [place] [address] | | | SERVICES, CORE | VILMA [...] | + + + + + | [facility] | [address] [facility] | [place] [address] | | | SERVICES, CORE | VILMA [...] (H) | 70 - 99 mg/dL | [facility] - | | | GLUCOSE, | [...] + + + | [facility] | [address] | [place], [place] | | | [facility] | [address] | [address] | | | TESTS | | | [...] MARQUAM | [address] | [place], [place] | | | [facility] | [address] | [address] | | | TESTS | | | [...] - MARQUAM | [address] | [place], [place] | | | [facility] | [address] | [address] | | | TESTS | | | [...] [facility] DEPT [facility] | [address] [facility] | [place], [place] | | | CARDIOLOGY | [address] | [address] | | + + + + + [...] | [facility] | [address] | [place], [place] | | | [facility] | [facility] | [address] | | | TESTS | | | [...] [facility] | [address] | [place] [address] | | | SERVICES, NATALEE | VILMA [...] | + + + + + | [facility] [employer] | [address] [facility] | [place] [address] | | | SERVICES, CORE | VILMA [...] MCHC, PLT, IG% and IG# effective | [facility] | | 09/05/2017 | LABORATORY | | | SERVICES, CORE | + + + + + + + + | Performing | Address | City/State/Zipcode | Phone Number | | Organization | | | | + + + + + | [facility] | [address] | [place] [address] | | | NATALEE WORTHINGTON | VILMA [...] MARQUAM | [address] | [place], [place] | | | GLORIA GENAO OF [facility] | [facility] | [address] | | | TESTS | | | [...] PICKETT | [address] | [place] | | | [facility] | [address] | [address] | | | TESTS | | | [...] MARQUAM | [address] | [place] | | | [facility] | [address] | [address] | | | TESTS | | | [...] GEET OF | [address] | [place], [place] | | | CARDIOLOGY | [address] | [address] | | + + + + + CAPILLARY BLOOD GLUCOSE (NO CHG), CITLALY (09/28/2017 6:47 AM PDT) + +---------+ + [...] MARQUAM | [address] | [place], [place] | | | [facility] GE[facility] CARE | [address] | [address] | | | TESTS | | | [...] | + + + + + | [facility] | [address] | [place] [address] | | | SERVICES, CORE | [address] | | | + + + + + MAGNESIUM, PLASMA (09/28/2017 4:58 AM PDT) + +-------+ + + + | Component | Value | Ref Range | Performed | Pathologist | | | | | At | Signature | + +-------+ + + + | MAGNESIUM,P | 2.1 | 1.6 - 2.6 mg/dL | [facility] | | | LASMA | | | [...] [facility] | [address] | [place] [address] | | | NATALEE WORTHINGTON | VILMA [...] | + + + + + | [facility] | [address] | [place] [address] | | | SERVICES, NATALEE | VILMA [...] MARQUAM | [address] | [place], [place] | | | [facility] GE[facility] CARE | [facility] | [address] | | | TESTS | | | [...] (H) | 70 - 99 mg/dL | [facility] - | | | GLUCOSE, | [...] PICKETT | [address] | [place], [place] | | | [facility] | [address] | [address] | | | TESTS | | | [...] Note | + + | Service Account, [employer] In Interface - 09/27/2017 2:19 PM [...] poorly cleared with dry swallows. Please see [facility] pathology report for full details | [...] MARQUAM | [address] | [place], [place] | | | [facility] | [address] | [address] | | | TESTS | | | [...] PICKETT | [address] | [place] | | | [facility] | [address] | [address] | | | TESTS | | | [...] [facility] | [address] | [place] [address] | | | NATALEE WORTHINGTON | VILMA [...] | + + + + + | [facility] | [address] [facility] | [place] [address] | | | SERVICES, NATALEE | VILMA [...] | + + + + + | [facility] | [address] [facility] | [place] [address] | | | SERVICES, CORE | VILMA [...] PI[facility]USH | [address] | [place], [place] | | | [facility] OF [facility] | [address] | [address] | | | TESTS | | | [...] - [facility] | [address] | [place], [place] | | | [facility] | [address] | [address] | | | TESTS | | | [...] DEPT OF | [address] | [place], [place] | | | CARDIOLOGY | [address] | [address] | | + + + + + [...] MARQUAM | [address] | [place] | | | GLORIA GENAO OF [facility] | [address] | [address] | | | TESTS | | | [...] MARQUAM | [address] | [place] | | | GLORIA GENAO OF CARE | [facility] | [address] | | | TESTS | | | [...] PICKETT | [address] | [place], [place] | | | GL[facility] GE[facility] CARE | [address] | [address] | | | TESTS | | | [...] [facility] | [address] | [place] [address] | | | NATALEE WORTHINGTON | VILMA [...] | + + + + + | [facility] | [address] [facility] | [place] [address] | | | NATALEE WORTHINGTON | PARK [...] | + + + + + | [facility] | [address] | [place] [address] | | | SERVICES, CORE | VILMA [...] MARQUAM | [address] | [place] | | | [facility] CARE | [address] | [address] | | | TESTS | | | [...] [facility] | [address] | [place] [address] | | | NATALEE WORTHINGTON | VILMA [...] | + + + + + | [facility] | [address] | [place] [address] | | | SERVICES, NATALEE | PARK [...] | + + + + + | [facility] | [address] | [place] [address] | | | SERVICES, CORE | [address] | | | + + + + + 12 LEAD ECG (09/24/2017 9:28 PM PDT) + + + + + + | Component | Value | Ref Range | Performed | Pathologist | | | | | At | Signature | + + + + + + | VENTRICULAR | 74 | bpm | [facility] | | | RATE | | [...] [facility] | [address] | [place], [place] | | | CARDIOLOGY | [address] | [address] | | + + + + + [...] MD 09/24/2017 2:43 PM | |Preliminary: Edelmira K Korngold, MD | + + + +---------+ + [...] | | + +---------+ + + | [facility] | | | | | [...] | + + + + + | [facility] | [address] | [place] [address] | | | SERVICES, NATALEE | PARK [...] | + + + + + | [facility] | [address] | [place] [address] | | | SERVICES, CORE | PARK [...] | + + + + + | [facility] | [address] | [place] [address] | | | NATALEE WORTHINGTON | VILMA [...] LABORATORY | [address] | [place] [address] | | | SERVICES, CORE | PARK [...] [facility] | [address] | [place] [address] | | | SERVICES, CORE | VILMA [...] | + + + + + | [facility] | [address] [facility] | [place] [address] | | | NATALEE WORTHINGTON | VILMA [...] [facility] | [address] | [place], [place] | | | GL[facility] GENAO OF CARE | [address] | [address] | | | TESTS | | | [...] (H) | 70 - 99 mg/dL | [facility] - | | | GLUCOSE, | [...] PICKETT | [address] | [place], [place] | | | [facility] | [address] | [address] | | | TESTS | | | [...] presented. | | | |Final signature: Navjot rOta MD 09/22/2017 4:24 PM | |Preliminary: Cherri [...] [facility] | [address] | [place] [address] | | | SERVICES, CORE | PARK [...] DEPT OF | [address] | [place], [place] | | | CARDIOLOGY | [facility] | [address] | | + + + + + [...] | + + + + + | [facility] | [address] | [place] [address] | | | SERVICES, CORE | VILMA [...] [facility] | [address] | [place] [address] | | | SERVICES, CORE | PARK [...] the MDRD equation recommended by the | [facility] | | National Kidney Disease Education [...] | + + + + + | [facility] | [address] [facility] | [place] [address] | | | SERVICES, CORE | VILMA [...] [facility] | [address] | [place] | | | [facility] GE[facility]O OF [facility] | [address] | [address] | | | TESTS | | | [...] [facility] | [address] | [place] [address] | | | NATALEE WORTHINGTON | VILMA [...] | + + + + + | [facility] | [address] | [place] [address] | | | NATALEE WORTHINGTON | PARK [...] | + + + + + | [facility] | [address] [facility] | [place] [address] | | | SERVICES, CORE | VILMA [...] Note | + + | Service Account, [employer] In Interface - 09/20/2017 7:50 [...] Note | + + | Service Account, [employer] In Interface - 09/20/2017 6:26 PM PDT [...] Note | + + | Service Account, [employer] In Interface - 09/20/2017 5:17 PM PDT [...] OF | [address] | [place], [place] | | | CARDIOLOGY | [facility] | [address] | | + + + + + [...] | + + + + + | [facility] | [address] | [place] [address] | | | SERVICES, CORE | VILMA [...] | + + + + + | [facility] | [address] [facility] | [place] [address] | | | SERVICES, CORE | PARK [...] the MDRD equation recommended by the | [facility] | | National Kidney Disease Education Program. [...] | + + + + + | [facility] | [address] | [place] [address] | | | SERVICES, CORE | PARK [...] | [facility] | [address] [facility] | [place] [address] | | | SERVICES, CORE | PARK [...] [facility] | [address] | [place] [address] | | | SERVICES, CORE | PARK [...] the MDRD equation recommended by the | [facility] | | National Kidney Disease Education [...] | + + + + + | [facility] | [address] | [place] [address] | | | SERVICES, CORE | VILMA [...] [facility] | [address] | [place] [address] | | | NATALEE WORTHINGTON | PARK [...] [facility] | [address] | [place] [address] | | | SERVICES, CORE | PARK [...] the MDRD equation recommended by the | [facility] | | National Kidney Disease Education Program. [...] | + + + + + | [facility] | [address] [facility] | [place] [address] | | | NATALEE WORTHINGTON | VILMA [...] Note | + + | Service Account, [employer] In Interface - 09/17/2017 11:53 AM PDT [...] | + + + + + | [facility] | [address] | [place] [address] | | | NATALEE WORTHINGTON | VILMA [...] | + + + + + | [facility] | [address] | [place] [address] | | | SERVICES, CORE | PARK [...] | + + + + + | [facility] | [address] | [place] [address] | | | SERVICES, CORE | VILMA [...] | + + + + + | [facility] | [address] | [place] [address] | | | SERVICES, CORE | PARK [...] [facility] | [address] | [place] [address] | | | SERVICES, [facility] | [address] | | | + [...] the MDRD equation recommended by the | [facility] | | National Kidney Disease Education [...] | + + + + + | [facility] | [address] | [place] [address] | | | SERVICES, [facility] | [address] | | | + [...] + | Performing | Address | City/State/[facility] | Phone Number | | Organization [...] Note Indications:TPN Procedure | | | location: Unit:[facility] Room: #12 Providers: Attending name: | | | Attending physically present: No PICC Nurse name: Chris Kern | | | Jarad CHAVEZ,BSN,VAT Assisted by Declan dorantes RN,VAT | | | Pre-Procedure Consent: written consent obtained Consent given by: | | | Patient Patient identity confirmed per protocol: Yes Team Pause: | | | Immediatly prior to the procedure a pause per protocol was called. A | | | pause verifies correct patient, procedure, equipment, technical support representative | | | and site/side [...] | area Basilic vein. Catheter lot number: [id number] with a length of 55 | | [...] + | Performing | Address | City/State/[facility] | Phone Number | | Organization [...] | + + + + + | [facility] | [address] [facility] | [place] [address] | | | SERVICES, CORE | VILMA [...] [facility] | [address] | [place] [address] | | | SERVICES, CORE | PARK [...] the MDRD equation recommended by the | [facility] | | National Kidney Disease Education [...] | + + + + + | [facility] | [address] [facility] | [place] [address] | | | SERVICES, CORE | VILMA [...] | + + + + + | [facility] | [address] [facility] | [place] [address] | | | NATALEE WORTHINGTON | VILMA [...] | + + + + + | [facility] | [address] | [place] [address] | | | SERVICES, CORE | PARK [...] [facility] | [address] | [place] [address] | | | SERVICES, CORE | PARK [...] | + + + + + | [facility] | [address] [facility] | [place] [address] | | | NATALEE WORTHINGTON | VILMA [...] | + + + + + | [facility] | [address] [facility] | [place] [address] | | | SERVICES, CORE | [address] [...] | + + + + + | [facility] | [address] [facility] | [place] [address] | | | SERVICES, CORE | [address] | | | + + + + + X-RAY ABD LTD FEEDING TUBE EVAL (09/12/2017 6:50 AM PDT) + + | Specimen | + + | | + + + + + | Narrative | Performed At | + + + | EXAM: ABD LTD FEEDING TUBE EVAL HISTORY: Dobbhoff tube | [facility] | | placement. COMPARISON: 09/10/2017. FINDINGS/IMPRESSION: [...] Note | + + | Service Account, [employer] In Interface - 09/12/2017 9:13 AM [...] | + + + + + | [facility] | [address] | [place] [address] | | | SERVICES, CORE | [address] | | | + + + + + MAGNESIUM, PLASMA (09/12/2017 6:33 AM PDT) + +-------+ + + + | Component | Value | Ref Range | Performed | Pathologist | | | | | At | Signature | + +-------+ + + + | MAGNESIUM,P | 2.3 | 1.6 - 2.6 mg/dL | [facility] | | | LASMA | | [...] [facility] | [address] | [place] [address] | | | ELIN, NATALEE | VILMA [...] | + + + + + | [facility] | [address] | [place] [address] | | | SERVICES, CORE | VILMA [...] | + + + + + | [facility] | [address] | [place] [address] | | | NATALEE WORTHINGTON | VILMA [...] | + + + + + | [facility] | [address] | [place] [address] | | | SERVICES, CORE | PARK [...] | + + + + + | [facility] | [address] | [place] [address] | | | SERVICES, CORE [...] [facility] | [address] | [place] [address] | | | SERVICES, CORE | [address] | | | + + + + + X-RAY ABD LTD FEEDING TUBE EVAL (09/10/2017 12:44 PM PDT) + + | Specimen | + + | | + + + + + | Narrative | Performed At | + + + | INDICATION: DHT placement TECHNIQUE: Upright portable view of | [facility] | | the upper abdomen. Comparison: [...] | | + +---------+ + + | [facility] | | | | | [...] Note | + + | Service Account, [employer] In Interface - 09/10/2017 2:31 PM PDT [...] [facility] | [address] | [place] [address] | | | SERVICES, CORE | [address] [...] | + + + + + | [facility] | [address] | [place] [address] | | | SERVICES, CORE | PARK [...] | + + + + + | [facility] | [address] | [place] [address] | | | SERVICES, CORE | PARK [...] [facility] | [address] | [place] [address] | | | SERVICES, NATALEE | VILMA [...] | + + + + + | [facility] [employer] | [address] [facility] | [place] [address] | | | SERVICES, CORE | VIL[address] [...] + | [facility] | [address] | [place], [place] | | | CARDIOLOGY | [address] | [address] | | + + + + + [...] Service Account, [employer] In Interface - 09/10/2017 11:11 AM [...] [facility] | [address] | [place], [place] | | | GLORIA GENAO OF CARE | [address] | [address] | | | TESTS | | | [...] [facility] | [address] | [place] [address] | | | SERVICES, CORE | PARK [...] 09/06/2107 | LABORATORY | | | NATALEE WORTIHNGTON | + + + + + + + + | Performing | Address | City/State/Zipcode | Phone Number | | Organization | | | | + + + + + | [facility] | [address] | [place] [address] | | | NATALEE WORTHINGTON | [address] [...] | + + + + + | [facility] [employer] | [address] | [place] [address] | | | SERVICES, CORE | [address]ILMA [...] [facility] | [address] | [place] [address] | | | NATALEE WORTHINGTON | VILMA [...] | + + + + + | [facility] | [address] | [place] [address] | | | SERVICES, CORE | VILMA [...] [facility] | [address] | [place] [address] | | | SERVICES, CORE | PARK [...] + + + + + | [facility] | [address] | [place] [address] | | | SERVICES, CORE | [address] | | | + + + + + X-RAY ABD LTD FEEDING TUBE EVAL (09/08/2017 4:38 AM PDT) + + | Specimen | + + | | + + + + + | Narrative | Performed At | + + + | EXAM: ABD LTD FEEDING TUBE EVAL 09/08/17 04:04:50 COMPARISON: | [facility] | | 09/06/17 FINDINGS: Feeding tube has [...] | | + +---------+ + + | [facility] | | | | | [...] | + + + + + | [facility] OF | [address] | [place], [place] | | | CARDIOLOGY | [address] | [address] | | + + + + + X-RAY PORTABLE CHEST 1 VIEW (09/07/2017 6:12 AM PDT) + + | Specimen | + + | | + + + + + | Narrative | Performed At | + + + | EXAM: NE CHEST 1 VIEW HISTORY: Post extubation COMPARISON: | [facility] | | 09/05/17 FINDINGS: Interval extubation. Enteric [...] | | + +---------+ + + | [facility] | | | | | [...] [facility] | [address] | [place] [address] | | | SERVICES, CORE | PARK [...] the MDRD equation recommended by the | [facility] | | National Kidney Disease Education Program. [...] | + + + + + | [facility] | [address] | [place] [address] | | | SERVICES, CORE | [address] | | | + + + + + MAGNESIUM, PLASMA (09/07/2017 1:00 AM PDT) + +-------+ + + + | Component | Value | Ref Range | Performed | Pathologist | | | | | At | Signature | + +-------+ + + + | MAGNESIUM,P | 1.8 | 1.6 - 2.6 mg/dL | [facility] | | | LASMA | | | [...] [facility] | [address] | [place] [address] | | | SERVICES, NATALEE | V[place] [...] + + + + + | [facility] | [address] | [place], [place] | | | CARDIOLOGY | [address] | [id number] | | + + + + + [...] | | | attempt. Midline lot number [id number]; there was positive blood | | | [...] | + + + + + | [facility] | [address] | [place] [address] | | | SERVICES, NATALEE | VILMA [...] | + + + + + | [facility] | [address] | [place] [address] | | | SERVICES, CORE | PARK [...] | + + + + + | [facility] | [address] | [place] [address] | | | SERVICES, CORE | [address] | | | + + + + + MAGNESIUM, PLASMA (09/05/2017 3:54 AM PDT) + +-------+ + + + | Component | Value | Ref Range | Performed | Pathologist | | | | | At | Signature | + +-------+ + + + | MAGNESIUM,P | 1.8 | 1.6 - 2.6 mg/dL | [facility] | | | [facility] | | | [...] | | LABORATORY | | | NATALEE [place] | + + + + + + + + | Performing | Address | City/State/Zipcode | Phone Number | | Organization | | | | + + + + + | [facility] | [address] | [place] [address] | | | NATALEE [place] | [place] [...] | + + + + + | [facility] | [address] | [place] [address] | | | SERVICES, CORE | VILMA [...] + + + + + | [facility] | [address] | [place] [address] | | | SERVICES, CORE | VILMA [...] tomorrow morning. CB Henson Pager / ID: [id number] | | + + + CULTURE, SPUTUM [...] + | [facility] | [address] | [place] [address] | | | [place] | | | [...] [facility] | [address] | [place] [address] | | | SERVICES, CORE | VILMA [...] | [facility] | | | GRAVITY | [place] performed by | | LABORATORY | | [...] [facility] | [address] | [place] [address] | | | SERVICES, CORE | PARK [...] | + + + + + | [facility] | [address] | [place] [address] | | | SERVICES, NATALEE | VILMA [...] [facility] | [address] | [place] [address] | | | SERVICES, CORE | VILMA [...] DEPT OF | [address] | [place], [place] | | | CARDIOLOGY | [address] | [phone] | | + + + + + [...] | + + + + + | [facility] | [address] | [place] [address] | | | SERVICES, CORE | VILMA [...] | + + + + + | [facility] | [address] | [place] [address] | | | SERVICES, CORE | VILMA [...] | + + + + + | [facility] | [address] | [place] [address] | | | SERVICES, CORE | V[place]MA [...] | + + + + + | [facility] | [address] | [place] [address] | | | SERVICES, CORE | VILMA [...] (H) | 70 - 99 mg/dL | [facility] - | | | GLUCOSE, | [...] [facility] | [address] | [place], [place] | | | GLORIA GENAO OF CARE | [address] | [address] | | | TESTS | | | [...] [facility] | [address] | [place], [place] | | | GLORIA GENAO OF [employer] | [facility] | [address] | | | TESTS | | | [...] [facility] | [address] | [place], [place] | | | CHAD[place]ICK POINT OF CARE | [facility] | [address] | | | TESTS | | | [...] [facility] | [address] | [place], [place] | | | GLORIA GENAO OF CARE | [address] | [address] | | | TESTS | | | [...] Note | + + | Service Account, [employer] In Interface - 09/03/2017 10:27 AM PDT [...] + | [facility] - | [address] | [place] [address] | | | [place] | | | [...] [facility] | [address] | [place] [address] | | | SERVICES, CORE | PARK [...] Note | + + | Service Account, [employer] Res In Interface - 09/03/2017 9:54 AM [...] + | [facility] | [address] | [place] [address] | | | [place] | | | [...] [facility] | [address] | [place] [address] | | | SERVICES, CORE | PARK [...] [facility] | [address] | [place] [address] | | | SERVICES, CORE | VILMA [...] (H) | 4 - 11 mmol/L | [facility] | | | GAP(ALB | | [...] | + + + + + | [facility] | [address] | [place] [address] | | | SERVICES, CORE | VILMA [...] | + + + + + | [facility] | [address] | [place] [address] | | | SERVICES, CORE | [address] | | | + + + + + OPERATION RECORD (09/02/2017 6:53 PM PDT) + + | Procedure Note | + + | Cook, Fidelina R, MD - 09/02/2017 6:53 PM PDT Date of Service: 09/02/2017 | | Attending Surgeon: Fidelina Shields MD Oxidized Finish Plater(s): | | Ajay Garcia MD, resident. Preoperative [...] in stable condition.Ajay Garcia, | | GHAZALA Christianson/FELYD: 09/02/2017 18:15:29DT: 09/02/2017 18:53:52Job #: | | [id number] to federal Medicare and Medicaid regulations I was present for | | the entire procedure.Fidelina Shields MDAssistant ProfessorDepartment of SurgeryOffice: | | [phone]: [id number] has been electronically signed by Fidelina Shields MD, | | 09/03/2017 at 9:11 AM. | | | | | |Fidelina Shields MD | |Short Order Fry Cook | |Department of Surgery | |Office: [phone] | |Pager: [phone] | | | |This has been electronically [...] | + + + + + | [facility] | [address] | [place] [address] | | | SERVICES, CORE | VILMA [...] [facility] | [address] | [place] [address] | | | SERVICES, CORE | PARK [...] detected | AIRPORT - | | | [place] | + + + + + + + + | Performing | Address | City/State/Zipcode | Phone Number | | Organization | | | | + + + + + | [facility] | [address] | [place] [address] | | | [place] | | | | + + + [...] [facility] | [address] | [place] [address] | | | SERVICES, CORE | PARK [...] the MDRD equation recommended by the | [facility] | | National Kidney Disease Education [...] | + + + + + | [facility] | [address] [facility] [address] | [place] [address] | | | NATALEE WORTHINGTON | VILMA [...] Note | + + | Service Account, [employer] In Interface - 09/02/2017 4:25 PM PDT [...] | | contact: INGRID Garcia, R4 Surgery [phone] Pursuant | | | to federal Medicare and Medicaid regulations I was present for the | | | entire procedure. Fidelina Shields MD Short Order Fry Cook | | | Department of Surgery Office: [phone] Pager: [phone] This has | | | been electronically [...] [facility] | [address] | [place] [address] | | | SERVICES, CORE | PARK [...] | + + + + + | [facility] | [address] | [place] [address] | | | SERVICES, [facility] | [address] | | | + + + + + OPERATION RECORD (09/02/2017 6:51 AM PDT) + ---+ | Procedure Note | + ---+ | Fidelina Shields MD - 09/02/2017 6:51 AM PDT Date of Service: 09/01/2017 | | Attending Surgeon: Fidelina Shields MD Oxidized Finish Plater(s): Haim Peralta MD. | | Ajay Garcia [...] laparotomy pads packed in the LUQ. Dr. Kitcehn | | Cornelius was present for the entirety of it. The patient tolerated the procedure well and | | was to be transferred back to the ICU following the completion of the angiography.Ajay | | Truong Casarez MDTBK/MODLDD: 09/02/2017 06:17:53DT: 09/02/2017 | | 06:51:37Job #: [id number] to federal Medicare and Medicaid regulations I | | was present for the entire procedure.Fidelina Tenorio ProfessorDepartment of | | SurgeryOffice: [phone]: [id number] has been electronically signed by Fidelina Radford | MD Cornelius, 09/02/2017 at 10:40 AM. | | | | | |Pursuant to federal Medicare and Medicaid regulations I was present for the entire procedur e. | | | | | | | |Fidelina Shields MD | |Short Order Fry Cook | |Department of Surgery | |Office: [phone] | |Pager: [phone] | | | |This has been electronically [...] | + + + + + | [facility] | [address] | [place] [address] | | | SERVICES, CORE | VILMA [...] [facility] | [address] | [place] [address] | | | SERVICES, CORE | PARK [...] + + + + | PRODUCT | [id number] | | [facility] | | | UNIT [...] + + + + | EXPIRATION | [id number] | | [facility] | | | DATE [...] + + + + | BLOOD | [id number] | | [facility] | | | PRODUCT [...] [facility] | [address] | [place] [address] | | | SERVICES, | [address] [...] | + + + + + | [facility] | [address] | [place] [address] | | | SERVICES, CORE | VILMA [...] | + + + + + | [facility] | [address] | [place] [address] | | | SERVICES, CORE | VILMA [...] | + + + + + | [facility] | [address] | [place] [address] | | | SERVICES, CORE [...] | | | | INFORMATION: | | [facility] | | | | [employer] | [...] (http://www.cdc.gov/mmwr | | | | | | [email or web address] | | | | | | [email or web address]), [...] [facility] - | | | | by [employer], | | AIRPORT - | | | | | | [place] | | | | [address] | | | | | | [facility] | | | | | | [address] | | | | | | | | | | | | [email or web address] | | | | | | [...] + | [facility] - | [address] | [place] [address] | | | [place] | | | [...] | + + + + + | [facility] | [address] | [place] [address] | | | SERVICES, CORE | PARK [...] | + + + + + | [facility] | [address] | [place] [address] | | | ELIN, NATALEE | VILMA [...] | | + +---------+ + + | [facility] | | | | | VOICE RECOGNITION | | | | + +---------+ + + X-RAY PORTABLE CHEST 1 VIEW (09/01/2017 6:14 PM PDT) + + | Specimen | + + | | + + + + + | Narrative | Performed At | + + + | EXAM: NE CHEST 1 VIEW HISTORY: Hypoxemia COMPARISON: 09/01/17 | [facility] | | FINDINGS: The endotracheal tube, [...] | + + + + + | [facility] | [address] | [place] [address] | | | SERVICES, CORE | PARK [...] (L) | 41.0 - 53.0 % | [facility] | | | | | | [...] | + + + + + | [facility] | [address] [facility] | [place] [address] | | | SERVICES, CORE | VILMA [...] + + + + | PRODUCT | [id number] | | [facility] | | | UNIT [...] + + + + | EXPIRATION | [id number] | | [facility] | | | DATE [...] + + + + | BLOOD | [id number] | | [facility] | | | PRODUCT [...] | + + + + + | [facility] | [address] | [place] [address] | | | SERVICES, | [address] [...] [facility] | [address] | [place] [address] | | | SERVICES, CORE | PARK [...] [facility] | [address] | [place] [address] | | | SERVICESNATALEE | [address] [...] | + + + + + | [facility] | [address] [facility] [address] | [place] [address] | | | SERVICES, CORE | VILMA [...] | + + + + + | [facility] | [address] [facility] [facility] [address] | [place] [address] | | | NATALEE WORTHINGTON | [address] [...] | [facility] | [address] [facility] | [place] [address] | | | SERVICES, CORE | VILMA [...] | + + + + + | [facility] | [address] [facility] [address] [address] | [place] [address] | | | NATALEE WORTHINGTON | [address] | | | + + + + + IR LULA OTHER (09/01/2017 2:06 PM PDT) + + | Specimen | + + | | + + + + + | Narrative | Performed At | + + + | Procedure: Selective visceral arteriography. IR Attending: | SELENA | | Marquez Hubbard MD, PhD IR Fellow: George Shah MD VS | RADIOLOGY VOICE | | Fellow: Tery Thomas MD Preoperative diagnosis: pelvic trauma, | [...] micropuncture access set was exchanged for a [employer] wire. Under | | | fluoroscopic guidance, a 5 Fr flush catheter was used to evaluate the | | | distal abdominal aorta and pelvic vasculature. A wire and catheter | | | were then used to select the left common and internal iliac arteries | | | from the right SPECIAL DIET COOK approach. DSA was performed from the left [...] micropuncture access set was exchanged for a [employer] wire. Under fluoroscopic guidance, | | a 5 Fr flush catheter was used to evaluate the distal abdominal aorta and pelvic | | vasculature. A wire and catheter were then used to select the left common and internal | | iliac arteries from the right SPECIAL DIET COOK approach. DSA was performed from the left [...] micropuncture access set was exchanged for a [employer] wire. Under fluoroscopic guidance, a 5 Fr flush catheter was used | |to evaluate the distal abdominal aorta and pelvic vasculature. A wire and catheter were th en used to select the left common and internal iliac arteries from the right SPECIAL DIET COOK approach. DSA was performed from the left [...] [facility] | [address] | [place], [place] | | | GLOIRA GENAO OF [employer] | [address] | [address] | | | TESTS | | | | + + + + + EXPLORATORY LAPAROTOMY (09/01/2017 12:31 PM PDT) + + + | Narrative | Performed At | + + + | Fidelina Shields MD 09/01/2017 12:42 PM BRIEF OPERATIVE NOTE: | | | Date: 09/01/2017 Author: Fidelina Shields MD | | | Attending Physician: Fidelina Shields MD Oxidized Finish Plater(s): Haim Peralta | | | , Vicente Garcia MD, [facility] Prior to the | | | [...] case. | | | Fidelina Shields MD Short Order Fry Cook Division of Trauma, | | | Critical Care and Acute Care Surgery Office: [phone] Pager: | [phone] | | + + + ABG-FULL ABL, [...] [facility] | [address] | [place] | | | GLORIA GENAO OF [employer] | [address] | [address] | | | TESTS | | | [...] | + + + + + | [facility] | [address] | [place] [address] | | | SERVICES, CORE | VILMA [...] [facility] | [address] | [place], [place] | | | [facility] | [facility] | [address] | | | TESTS | | | [...] + + + + | PRODUCT | [id number] | | [facility] | | | UNIT [...] + + + + | EXPIRATION | [id number] | | [facility] | | | DATE [...] + + + + | BLOOD | [id number] | | [facility] | | | PRODUCT [...] [facility] | [address] | [place] [address] | | | SERVICES, | [address] [...] + + + + | PRODUCT | [id number] | | [facility] | | | UNIT [...] + + + + | EXPIRATION | [id number] | | [facility] | | | DATE [...] + + + + | BLOOD | [id number] | | [facility] | | | PRODUCT [...] LABORATORY | [address] | [place] [address] | | | SERVICES, | [address] [...] + + + + | PRODUCT | [id number] | | [facility] | | | UNIT [...] + + + + | EXPIRATION | [id number] | | [facility] | | | DATE [...] + + + + | BLOOD | [id number] | | [facility] | | | PRODUCT [...] | [facility] | [address] [facility] | [place] [address] | | | SERVICES, | [address] [...] + + + + | PRODUCT | [id number] | | [facility] | | | UNIT [...] + + + + | EXPIRATION | [id number] | | [facility] | | | DATE [...] + + + + | BLOOD | [id number] | | [facility] | | | PRODUCT [...] | + + + + + | [facility] | [address] | [place] [address] | | | SERVICES, | [address] [...] + + + + | PRODUCT | [id number] | | [facility] | | | UNIT [...] + + + + | EXPIRATION | [id number] | | [facility] | | | DATE [...] + + + + | BLOOD | [id number] | | [facility] | | | PRODUCT [...] | + + + + + | [facility] | [address] | [place] [address] | | | SERVICES, | [address] [...] + + + + | PRODUCT | [id number] | | [facility] | | | UNIT [...] + + + + | EXPIRATION | [id number] | | [facility] | | | DATE [...] + + + + | BLOOD | [id number] | | [facility] | | | PRODUCT [...] | + + + + + | [facility] | [address] | [place] [address] | | | SERVICES, | [address] [...] + + + + | PRODUCT | [id number] | | [facility] | | | UNIT [...] + + + + | EXPIRATION | [id number] | | [facility] | | | DATE [...] + + + + | BLOOD | [id number] | | [facility] | | | PRODUCT [...] [facility] | [address] | [place] [address] | | | SERVICES, | [address] [...] + + + + | PRODUCT | [id number] | | [facility] | | | UNIT [...] + + + + | EXPIRATION | [id number] | | [facility] | | | DATE [...] + + + + | BLOOD | [id number] | | [facility] | | | PRODUCT [...] [facility] | [address] | [place] [address] | | | SERVICES, | [address] [...] + + + + | PRODUCT | [id number] | | [facility] | | | UNIT [...] + + + + | EXPIRATION | [id number] | | [facility] | | | DATE [...] + + + + | BLOOD | [id number] | | [facility] | | | PRODUCT [...] [facility] | [address] | [place] [address] | | | SERVICES, | [address] [...] + + + + | PRODUCT | [id number] | | [facility] | | | UNIT [...] + + + + | EXPIRATION | [id number] | | [facility] | | | DATE [...] + + + + | BLOOD | [id number] | | [facility] | | | PRODUCT [...] [facility] | [address] | [place] [address] | | | SERVICES, | [address] [...] + + + + | PRODUCT | [id number] | | [facility] | | | UNIT [...] + + + + | EXPIRATION | [id number] | | [facility] | | | DATE [...] + + + + | BLOOD | [id number] | | [facility] | | | PRODUCT [...] [facility] | [address] | [place] [address] | | | SERVICES, | [address] [...] + + + + | PRODUCT | [id number] | | [facility] | | | UNIT [...] + + + + | EXPIRATION | [id number] | | [facility] | | | DATE [...] + + + + | BLOOD | [id number] | | [facility] | | | PRODUCT [...] [facility] | [address] | [place] [address] | | | SERVICES, | [address] [...] + + + + | PRODUCT | [id number] | | [facility] | | | UNIT [...] + + + + | EXPIRATION | [id number] | | [facility] | | | DATE [...] + + + + | BLOOD | [id number] | | [facility] | | | PRODUCT [...] [facility] | [address] | [place] [address] | | | SERVICES, | [address] [...] + + + + | PRODUCT | [id number] | | [facility] | | | UNIT [...] + + + + | EXPIRATION | [id number] | | [facility] | | | DATE [...] + + + + | BLOOD | [id number] | | [facility] | | | PRODUCT [...] | + + + + + | [facility] | [address] | [place] [address] | | | SERVICES, | [address] [...] + + + + | PRODUCT | [id number] | | [facility] | | | UNIT [...] + + + + | EXPIRATION | [id number] | | [facility] | | | DATE [...] + + + + | BLOOD | [id number] | | [facility] | | | PRODUCT [...] | + + + + + | [facility] | [address] | [place] [address] | | | SERVICES, | [address] [...] + + + + | PRODUCT | [id number] | | [facility] | | | UNIT [...] + + + + | EXPIRATION | [id number] | | [facility] | | | DATE [...] + + + + | BLOOD | [id number] | | [facility] | | | PRODUCT [...] | + + + + + | [facility] | [address] | [place] [address] | | | SERVICES, | [address] [...] + + + + | PRODUCT | [id number] | | [facility] | | | UNIT [...] + + + + | EXPIRATION | [id number] | | [facility] | | | DATE [...] + + + + | BLOOD | [id number] | | [facility] | | | PRODUCT [...] | + + + + + | [facility] | [address] | [place] [address] | | | SERVICES, | [address] [...] + + + + | PRODUCT | [id number] | | [facility] | | | UNIT [...] + + + + | EXPIRATION | [id number] | | [facility] | | | DATE [...] + + + + | BLOOD | [id number] | | [facility] | | | PRODUCT [...] | + + + + + | [facility] | [address] | [place] [address] | | | SERVICES, | [address] [...] + + + + | PRODUCT | [id number] | | [facility] | | | UNIT [...] + + + + | EXPIRATION | [id number] | | [facility] | | | DATE [...] + + + + | BLOOD | [id number] | | [facility] | | | PRODUCT [...] [facility] | [address] | [place] [address] | | | SERVICES, | [address] [...] + + + + | PRODUCT | [id number] | | [facility] | | | UNIT [...] + + + + | EXPIRATION | [id number] | | [facility] | | | DATE [...] + + + + | BLOOD | [id number] | | [facility] | | | PRODUCT [...] [facility] | [address] | [place] [address] | | | SERVICES, | [address] [...] + + + + | PRODUCT | [id number] | | [facility] | | | UNIT [...] + + + + | EXPIRATION | [id number] | | [facility] | | | DATE [...] + + + + | BLOOD | [id number] | | [facility] | | | PRODUCT [...] [facility] | [address] | [place] [address] | | | SERVICES, | [address] [...] + + + + | PRODUCT | [id number] | | [facility] | | | UNIT [...] + + + + | EXPIRATION | [id number] | | [facility] | | | DATE [...] + + + + | BLOOD | [id number] | | [facility] | | | PRODUCT [...] [facility] | [address] | [place] [address] | | | SERVICES, | [address] [...] + + + + | PRODUCT | [id number] | | [facility] | | | UNIT [...] + + + + | EXPIRATION | [id number] | | [facility] | | | DATE [...] + + + + | BLOOD | [id number] | | [facility] | | | PRODUCT [...] [facility] | [address] | [place] [address] | | | SERVICES, | [address] [...] + + + + | PRODUCT | [id number] | | [facility] | | | UNIT [...] + + + + | EXPIRATION | [id number] | | [facility] | | | DATE [...] + + + + | BLOOD | [id number] | | [facility] | | | PRODUCT [...] [facility] | [address] | [place] [address] | | | SERVICES, | [address] [...] + + + + | PRODUCT | [id number] | | [facility] | | | UNIT [...] + + + + | EXPIRATION | [id number] | | [facility] | | | DATE [...] + + + + | BLOOD | [id number] | | [facility] | | | PRODUCT [...] [facility] | [address] | [place] [address] | | | SERVICES, | [address] [...] + + + + | PRODUCT | [id number] | | [facility] | | | UNIT [...] + + + + | EXPIRATION | [id number] | | [facility] | | | DATE [...] + + + + | BLOOD | [id number] | | [facility] | | | PRODUCT [...] | + + + + + | [facility] | [address] | [place] [address] | | | SERVICES, | [address] [...] [facility] | [address] | [place] [address] | | | SERVICES, CORE | PARK [...] the MDRD equation recommended by the | [facility] | | National Kidney Disease Education [...] | + + + + + | [facility] | [address] | [place] [address] | | | ELIN, NATALEE | PARK [...] [facility] | [address] | [place] [address] | | | NATALEE WORTHINGTON | [address] [...] | | POC | | g/dL | MARQ[facility]IN | | | | | [...] [facility] | [address] | [place], [place] | | | GLORIA GENAO OF [employer] | [address] | [address] | | | TESTS | | | [...] | | + +---------+ + + | [facility] | | | | | [...] + + + + | PRODUCT | [id number] | | [facility] | | | UNIT [...] + + + + | EXPIRATION | [id number] | | [facility] | | | DATE [...] + + + + | BLOOD | [id number] | | [facility] | | | PRODUCT [...] [facility] | [address] | [place] [address] | | | SERVICES, | [address] [...] + + + + | PRODUCT | [id number] | | [facility] | | | UNIT [...] + + + + | EXPIRATION | [id number] | | [facility] | | | DATE [...] + + + + | BLOOD | [id number] | | [facility] | | | PRODUCT [...] LABORATORY | [address] | [place] [address] | | | SERVICES, | [address] [...] + + + + | PRODUCT | [id number] | | [facility] | | | UNIT [...] + + + + | EXPIRATION | [id number] | | [facility] | | | DATE [...] + + + + | BLOOD | [id number] | | [facility] | | | PRODUCT [...] | + + + + + | [facility] | [address] | [place] [address] | | | SERVICES, | [address] [...] + + + + | PRODUCT | [id number] | | [facility] | | | UNIT [...] + + + + | EXPIRATION | [id number] | | [facility] | | | DATE [...] + + + + | BLOOD | [id number] | | [facility] | | | PRODUCT [...] | + + + + + | [facility] | [address] | [place] [address] | | | SERVICES, | [address] [...] + + + + | PRODUCT | [id number] | | [facility] | | | UNIT [...] + + + + | EXPIRATION | [id number] | | [facility] | | | DATE [...] + + + + | BLOOD | [id number] | | [facility] | | | PRODUCT [...] | + + + + + | [facility] | [address] | [place] [address] | | | SERVICES, | [address] [...] + + + + | PRODUCT | [id number] | | [facility] | | | UNIT [...] + + + + | EXPIRATION | [id number] | | [facility] | | | DATE [...] + + + + | BLOOD | [id number] | | [facility] | | | PRODUCT [...] | + + + + + | [facility] | [address] | [place] [address] | | | SERVICES, | [address] [...] + + + + | PRODUCT | [id number] | | [facility] | | | UNIT [...] + + + + | EXPIRATION | [id number] | | [facility] | | | DATE [...] + + + + | BLOOD | [id number] | | [facility] | | | PRODUCT [...] | + + + + + | [facility] | [address] | [place] [address] | | | SERVICES, | [address] [...] + + + + | PRODUCT | [id number] | | [facility] | | | UNIT [...] + + + + | EXPIRATION | [id number] | | [facility] | | | DATE [...] + + + + | BLOOD | [id number] | | [facility] | | | PRODUCT [...] | + + + + + | [facility] | [address] | [place] [address] | | | SERVICES, | [address] [...] Note | + + | Service Account, [employer] Res In Interface - 09/01/2017 9:01 AM [...] | | + +---------+ + + | [facility] | | | | | [...] + + + + | PRODUCT | [id number] | | [facility] | | | UNIT [...] + + + + | EXPIRATION | [id number] | | [facility] | | | DATE [...] + + + + | BLOOD | [id number] | | [facility] | | | PRODUCT [...] [facility] | [address] | [place] [address] | | | SERVICES, | [address] [...] + + + | [facility] | [address] | [place] [address] | | | SERVICES, CORE | VILMA [...] | + + + + + | [facility] | [address] | [place] [address] | | | SERVICES, CORE | [address] [...] Discussed with | | | trauma ICU it intern by Dr. Yang at 4:38 AM. I have | | | personally reviewed the images and, if necessary, edited the report. | | | I agree with the report as now presented. | | + + + + + | Procedure Note | + + | Service Account, [employer] Res In Interface - 09/01/2017 10:10 AM [...] interspinous ligament is injured.Discussed with trauma ICU it intern | | by Dr. Yang at 4:38 AM.I have personally reviewed the images and, if necessary, | | edited the report. I agree with the report as now presented. | |3. Extensive soft tissue edema extending into the cervical and upper thoracic interspinous space, suggestive of interspinous ligament is injured. | | | |Discussed with trauma ICU it intern by Dr. Yang at 4:38 AM. [...] | + + + + + | [facility] | [address] | [place] [address] | | | ELIN, NATALEE | [address]ILMA [...] | + + + + + | [facility] | [address] | [place] [address] | | | SERVICES, CORE | PARK [...] | + + + + + | [facility] | [address] | [place] [address] | | | SERVICES, CORE | VILMA [...] | + + + + + | [facility] | [address] | [place] [address] | | | SERVICES, CORE | VILMA [...] | ventricles. Discussed with the trauma ICU it intern at 12:12 AM by | | [...] ventricles.Discussed with | | the trauma ICU it intern at 12:[address] Yang.I [...] | | |Discussed with the trauma ICU it intern at 12:[address] Yang. [...] + + + | [facility] | [address] | [place], [place] | | | [facility] | [facility] | [id number] | | | TESTS | | | [...] [facility] | [address] | [place] [address] | | | SERVICES, CORE | PARK [...] | + + + + + | [facility] | [address] | [place] [address] | | | SERVICES, [facility] | [address] | | | + + + + + X-RAY SHOULDER 2 VIEWS LEFT (08/31/2017 8:56 PM PDT) + + | Specimen | + + | | + + + + + | Narrative | Performed At | + + + | EXAM: SHOULDER 2 VIEWS, ELBOW 2 VIEWS, HUMERUS 2 VIEWS LEFT 08/31/17 | [facility] | | HISTORY: Trauma, pain. COMPARISON: None. [...] SELENA [facility]NA[facility] | [address] | [place] [address] | | | SERVICES, CORE | [address] [...] | + + + + + | [facility] | [address] | [place] [address] | | | SERVICES, NATALEE | [address] [...] Note | + + | Service Account, CIDCO In Interface - 08/31/2017 8:22 PM PDT [...] Note | + + | Service Account, CIDCO In Interface - 09/01/2017 10:12 AM PDT [...] rib, nondisplaced-Left | | 1st rib fracture, guvihwabybvo-Pbo-zknndpvyh left lateral 8th rib fracture-T12 fracture | [...] | [facility] | [address] | [place] [address] | | | SERVICES, | [address] [...] | + + + + + | [facility] | [address] | [place] [address] | | | SERVICES, | [address] [...] | + + + + + | [facility] | [address] | [place] [address] | | | ELIN | [address] [...] 5.4 | 5 - 10 Minutes | [facility] - | | | CITRATED | | [...] - | | | | | | MARHKRIS[facility] | | | | | | GLORIA [...] [facility] | [address] | [place], [place] | | | [facility] | [address] | [address] | | | TESTS | | | [...] | | | CITRATED | | | [place] | | [...] - [facility] | [address] | [place], [place] | | | GLORIA GENAO OF GM | [facility] | [address] | | | TESTS | | | [...] | | POC | | %PCV | [facility] | | | | | [...] [facility] | [address] | [place], [place] | | | GLORIA GENAO OF CARE | [facility] | [address] | | | TESTS | | | [...] + + | [facility] | [address] | [place], [place] | | | GLORIA GENAO OF [facility] | [address] | [address] | | | TESTS | | | [...] + + + + | PRODUCT | [id number] | | [facility] | | | UNIT [...] + + + + | EXPIRATION | [id number] | | [facility] | | | DATE [...] + + + + | BLOOD | [id number] | | [facility] | | | PRODUCT [...] | + + + + + | [facility] | [address] | [place] [address] | | | SERVICES, | [address] [...] + + + + | PRODUCT | [id number] | | [facility] | | | UNIT [...] + + + + | EXPIRATION | [id number] | | [facility] | | | DATE [...] + + + + | BLOOD | [id number] | | [facility] | | | PRODUCT [...] | + + + + + | [facility] | [address] | [place] [address] | | | SERVICES, | [address] [...] + + + + | PRODUCT | [id number] | | [facility] | | | UNIT [...] + + + + | EXPIRATION | [id number] | | [facility] | | | DATE [...] + + + + | BLOOD | [id number] | | [facility] | | | PRODUCT [...] | + + + + + | [facility] [employer] | [address] | [place] [address] | | | SERVICES, | [address] [...] + + + + | PRODUCT | [id number] | | [facility] | | | UNIT [...] + + + + | EXPIRATION | [id number] | | [facility] | | | DATE [...] + + + + | BLOOD | [id number] | | [facility] | | | PRODUCT [...] | + + + + + | [facility] | [address] | [place] [address] | | | SERVICES, | [address] [...] + + + + | PRODUCT | [id number] | | [facility] | | | UNIT [...] + + + + | EXPIRATION | [id number] | | [facility] | | | DATE [...] + + + + | BLOOD | [id number] | | [facility] | | | PRODUCT [...] [facility] | [address] | [place] [address] | | | SERVICES, | [address] [...] + + + + | PRODUCT | [id number] | | [facility] | | | UNIT [...] + + + + | EXPIRATION | [id number] | | [facility] | | | DATE [...] + + + + | BLOOD | [id number] | | [facility] | | | PRODUCT [...] [facility] | [address] | [place] [address] | | | SERVICES, | [address] [...] + + + + | PRODUCT | [id number] | | [facility] | | | UNIT [...] + + + + | EXPIRATION | [id number] | | [facility] | | | DATE [...] + + + + | BLOOD | [id number] | | [facility] | | | PRODUCT [...] [facility] | [address] | [place] [address] | | | SERVICES, | [address] [...] + + + + | PRODUCT | [id number] | | [facility] | | | UNIT [...] + + + + | EXPIRATION | [id number] | | [facility] | | | DATE [...] + + + + | BLOOD | [id number] | | [facility] | | | PRODUCT [...] [facility] | [address] | [place] [address] | | | SERVICES, | [address] [...] | + + + + + | [facility] | [address] | [place] [address] | | | SERVICES, CORE | PARK [...] | + + + + + | [facility] | [address] [facility] | [place] [address] | | | SERVICES, CORE | [address] [...] | + + + + + | [facility] | [address] | [place] [address] | | | SERVICES, CORE | [address] | | | + + + + + ETHANOL (ALCOHOL), BLOOD (08/31/2017 4:50 PM PDT) + +--------+ + + + | Component | Value | Ref Range | Performed | Pathologist | | | | | At | Signature | + +--------+ + + + | ETHANOL | 41 (H) | <10 mg/dL | [facility] | | | (ALCOHOL) | | | [...] [facility] | [address] | [place] [address] | | | SERVICES, CORE | PARK [...] | + + + + + | [facility] | [address] | [place] [address] | | | ELIN, NATALEE | [address] [...] | + + + + + | [facility] | [address] | [place] [address] | | | SERVICES, CORE | [address] [...]
--- OUTSIDE RECORDS SUMMARY | ~2019-04-04 | XMS | Encounter Summary ---
Demographics + + + | Address | [address] | | | [place] [address] | + + + | Home Phone [...] Author + + + | Author | [facility] | + + + | Organization | [facility] | + [...] Team Providers + +------+ + | Care Ophthalmic Surgeon Name | Role | Phone | + [...] | | | | | floor [address] [facility] | | | | | | [address] | | | | | | [place], [place] | | | | | | [address] | | | +--------+ + + + [...]
--- OUTSIDE RECORDS SUMMARY | ~2019-04-04 | XMS | Encounter Summary ---
Demographics + + + | Address | [address] | | | [place] [address] | + + + | Home Phone [...] Author + + + | Author | [facility] | + + + | Organization | [facility] [employer] [facility] | + + + | Address | Unknown | + + + | Phone | Unavailable | + + + Support + + +---------+ + | Name | Relationship | Address | Phone | + + +---------+ + | Kaylie Baig | ECON | Unknown | | + + +---------+ + Care Team Providers + +------+ + | Care Shear Setter Name | Role | Phone | + [...] | | | 2018 | Event | [facility] | [address] | | | | | Admitting Desk | [address] | | | | | Located on the [address] | [place], [place] | | | | | cox south [address] [facility] | [address] | | | | | [facility] | [phone] | | | | | [place], [place] | | | | | | [address] | Joslyn Boss, | | | | | | [address] | | | | | | [facility] | | | | | | [place], [place] | | | | | | [address] | | | | | | [phone] | | | | | | | [...] Tube | 09/04/17; 1300; Per order | Geura Gresham RN | Umm Knott RN | [...]
--- OUTSIDE RECORDS SUMMARY | ~2019-04-04 | XMS | Encounter Summary ---
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 NATALEE WORTHINGTON | VILMA [...] Note | + + | Service Account, MATINAS BIOPHARMA Res In Interface - 12/03/2017 10:30 AM [...] [facility] | [address] | [place], [place] | | | CARDIOLOGY | [address] | [address] | | + + + + + [...] FOR INC[facility] | [address] | [place] [address] | | | SERVICES, CORE | VILMA [...] + | [facility] - | [address] | [place] [address] | | | [place] | | | [...] FOR INCUR[facility] | [address] | [place] [address] | | | SERVICES, CORE | VILMA [...] [facility] | [address] | [place] [address] | | | SERVICES, CORE | PARK [...] | + + + + + | [facility] | [address] | [place] [address] | | | SERVICES, CORE | PARK [...] | | | LABORATORY | | | [place] | | | SERVICES, | | | [...] | + + + + + | [facility] | [address] | [place] [address] | | | SERVICES, CORE | VILMA [...] | + + + + + | [facility] | [address] | [place] [address] | | | SERVICES, CORE | VILMA [...] DEPT OF | [address] | [place], [place] | | | CARDIOLOGY | [address] | [address] | | + + + + + [...] DEPT OF | [address] | [place], [place] | | | CARDIOLOGY | [address] | [address] | | + + + + + [...] | | | LABORATORY | | | [place] | | | SERVICES, | | | [...] FOR INC[facility]LES | [address] | [place] [address] | | | SERVICES, CORE | PARK [...] | + + + + + | [facility] | [address] | [place] [address] | | | SERVICES, CORE | [address] | | | + + + + + 12 LEAD ECG (11/27/2017 11:03 AM PDT) + + + + + + | Component | Value | Ref Range | Performed | Pathologist | | | | | At | Signature | + + + + + + | VENTRICULAR | 56 | bpm | [facility] | | | RATE | | [...] DEPT OF | [address] | [place], [place] | | | CARDIOLOGY | [address] | [address] | | + + + + + [...] Note | + + | Service Account, MATINAS BIOPHARMA Res In Interface - 11/26/2017 12:36 PM [...] | + + + + + | [facility] - | [address] | [place], [place] [address] | | | [place] | | | | + + + [...] + + | [facility] | [address] | [place] [address] | | | SERVICES, CORE | PARK [...] [facility] | [address] | [place] [address] | | | SERVICES, CORE | PARK [...] LABORATORY | [address] | [place] [address] | | | SERVICES, CORE | PARK [...] | [facility] | [address] | [place] [address] | | | SERVICES, CORE | PARK [...] | | | LABORATORY | | | [place] | | | SERVICES, | | | [...] | + + + + + | [facility] | [address] | [place] [address] | | | SERVICES, CORE | [address] | | | + + + + + MAGNESIUM, PLASMA (11/25/2017 5:30 AM PDT) + +-------+ + + + | Component | Value | Ref Range | Performed | Pathologist | | | | | At | Signature | + +-------+ + + + | MAGNESIUM,P | 2.1 | 1.6 - 2.6 mg/dL | [facility] | | | LASMA | | | [...] [facility] | [address] | [place] [address] | | | NATALEE WORTHINGTON | VILMA [...] DEPT OF | [address] | [place], [place] | | | CARDIOLOGY | [address] | [address] | | + + + + + [...] + + | [facility] | [address] | [place], [place] | | | CARDIOLOGY | [address] | [address] | | + + + + + [...] [facility] | [address] | [place], [place] | | | CARDIOLOGY | [address] | [address] | | + + + + + [...] DEPT OF | [address] | [place], [place] | | | CARDIOLOGY | [address] | [address] | | + + + + + X-RAY SPINE CERVICAL 3 VIEWS (11/21/2017 2:23 PM PDT) + + | Specimen | + + | | + + + + + | Narrative | Performed At | + + + | EXAM: SPINE CERVICAL 3 VIEWS HISTORY: follow up imaging Cervical | [facility] | | Spine fractures C 6, C [...] | | | LABORATORY | | | [place] | | | SERVICES, | | | [...] the MDRD equation recommended by the | [facility] | | National Kidney [...] | + + + + + | [facility] | [address] | [place] [address] | | | SERVICES, CORE | [address] | | | + + + + + MAGNESIUM, PLASMA (11/21/2017 4:17 AM PDT) + +-------+ + + + | Component | Value | Ref Range | Performed | Pathologist | | | | | At | Signature | + +-------+ + + + | MAGNESIUM,P | 2.1 | 1.6 - 2.6 mg/dL | [facility] | | | SAMSONMA [...] [facility] | [address] | [place] [address] | | | NATALEE WORTHINGTON | VILMA [...] Note | + + | Service Account, GiveNext In Interface - 11/19/2017 11:26 AM PDT [...] DEPT OF | [address] | [place], [place] | | | CARDIOLOGY | [address] | [address] | | + + + + + [...] DEPT OF | [address] | [place], [place] | | | CARDIOLOGY | [address] | [address] | | + + + + + [...] [facility] | [address] | [place] [address] | | | SERVICES, CORE | PARK [...] [facility] | [address] | [place] [address] | | | NATALEE WORTHINGTON | VILMA [...] + | [facility] - | [address] | [place] [address] | | | [place] | | | [...] [facility] | [address] | [place] [address] | | | SERVICES, CORE | PARK [...] [facility] | [address] | [place] [address] | | | SERVICES, CORE | VILMA [...] | | | LABORATORY | | | [place] | | | SERVICES, | | | [...] [facility] | [address] | [place] [address] | | | SERVICES, NATALEE | PARK [...] | + + + + + | [facility] | [address] | [place] [address] | | | SERVICES, NATALEE | VILMA [...] DEPT OF | [address] | [place], [place] | | | CARDIOLOGY | [address] | [address] | | + + + + + [...] DEPT OF | [address] | [place], [place] | | | CARDIOLOGY | [address] | [address] | | + + + + + [...] [facility] | [address] | [place] [address] | | | NATALEE WORTHINGTON | PARK [...] DEPT OF | [address] | [place], [place] | | | CARDIOLOGY | [facility] | [address] | | + + + + + [...] | | | LABORATORY | | | [place] | | | SERVICES, | | | [...] | + + + + + | [facility] | [address] | [place] [address] | | | NATALEE WORTHINGTON | VILMA [...] | + + + + + | [facility] | [address] | [place] [address] | | | SERVICES, CORE | PARK [...] DEPT OF | [address] | [place], [place] | | | CARDIOLOGY | [address] | [address] | | + + + + + [...] | + + + + + | [facility] | [address] | [place] [address] | | | NATALEE WORTHINGTON | PARK [...] | | | LABORATORY | | | [place] | | | SERVICES, | | | [...] [facility] | [address] | [place] [address] | | | SERVICES, CORE | VILMA [...] + | [facility] - | [address] | [place] [address] | | | [place] | | | [...] Note | + + | Service Account, GiveNext In Interface - 11/12/2017 1:46 PM PDT [...] DEPT OF | [address] | [place], [place] | | | CARDIOLOGY | [address] | [address] | | + + + + + [...] [facility] | [address] | [place] [address] | | | SERVICES, NATALEE | VILMA [...] + | [facility] - | [address] | [place] [address] | | | [place] | | | | + + + [...] + + | [facility] | [address] | [place], [place] | | | CARDIOLOGY | [address] | [address] | | + + + + + [...] | + + + + + | [facility] | [address] | [place] [address] | | | NATALEE WORTHINGTON | PARK [...] + | [facility] - | [address] | [place] [address] | | | [place] | | | [...] [facility] | [address] | [place] [address] | | | NATALEE WORTHINGTON | VILMA [...] | [facility] | [address] | [place] [address] | | | SERVICES, CORE | PARK [...] [facility] | [address] | [place] [address] | | | SERVICES, CORE | PARK [...] | | | LABORATORY | | | [place] | | | SERVICES, | | | [...] the MDRD equation recommended by the | [facility] | | National Kidney [...] | + + + + + | [facility] | [address] | [place] [address] | | | NATALEE WORTHINGTON | VILMA [...] | + + + + + | [facility] | [address] | [place] [address] | | | NATALEE WORTHINGTON | VILMA [...] | [facility] | [address] [facility] [address] | [place] [address] | | | SERVICES, CORE | VILMA [...] | | | LABORATORY | | | [place] | | | SERVICES, | | | [...] | + + + + + | [facility] | [address] | [place] [address] | | | SERVICES, CORE | VILMA [...] DEPT OF | [address] | [place], [place] | | | CARDIOLOGY | [address] | [address] | | + + + + + [...] | [facility] | [address] | [place] [address] | | | SERVICES, CORE | PARK [...] | | | LABORATORY | | | [place] | | | SERVICES, | | | [...] [facility] | [address] | [place] [address] | | | ELIN, NATALEE | PARK [...] [facility] | [address] | [place] [address] | | | SERVICES, CORE | PARK [...] | | | LABORATORY | | | [place] | | | SERVICES, | | | [...] the MDRD equation recommended by the | [facility] | | National Kidney Disease Education Program. [...] | + + + + + | [facility] | [address] | [place] [address] | | | ELIN, CORE | VILMA [...] Note | + + | Service Account, MATINAS BIOPHARMA Res In Interface - 11/08/2017 2:31 PM [...] [facility] | [address] | [place] [address] | | | SERVICES, NATALEE | VILMA [...] | | | LABORATORY | | | [place] | | | SERVICES, | | | [...] | [facility] | [address] | [place] [address] | | | SERVICES, CORE | VILMA [...] + + | [facility] | [address] | [place], [place] | | | CARDIOLOGY | [address] | [address] | | + + + + + [...] DEPT OF | [address] | [place], [place] | | | CARDIOLOGY | [address] | [address] | | + + + + + [...] | | | LABORATORY | | | [place] | | | SERVICES, | | | [...] [facility] | [address] | [place] [address] | | | SERVICES, CORE | VILMA [...] [facility] | [address] | [place] [address] | | | SERVICES, CORE | VILMA [...] + + + + | PRODUCT | [id number] | | [facility] | | | UNIT [...] + + + + | EXPIRATION | [id number] | | [facility] | | | DATE [...] + + + + | BLOOD | [id number] | | [facility] | | | PRODUCT [...] [facility] | [address] | [place] [address] | | | SERVICES, | [address] [...] + + + + | PRODUCT | [id number] | | [facility] | | | UNIT [...] + + + + | EXPIRATION | [id number] | | [facility] | | | DATE [...] + + + + | BLOOD | [id number] | | [facility] | | | PRODUCT [...] | + + + + + | [facility] | [address] | [place] [address] | | | SERVICES, | [address] [...] [facility] | [address] | [place] [address] | | | NATALEE WORTHINGTON | PARK [...] | + + + + + | [facility] | [address] | [place] [address] | | | SERVICES, NATALEE | [address]IL[address] [...] | | | LABORATORY | | | [place] | | | SERVICES, | | | [...] FOR INC[facility] | [address] | [place] [address] | | | SERVICES, CORE | [address] | | | + + + + + OPERATION RECORD (11/06/2017 12:27 AM PDT) + + | Procedure Note | + + | Magdiel Stock MD - 11/06/2017 12:27 AM PDT Date of Service: 11/05/2017 Attending | | Surgeon: Magdiel Stock MD Mft(s): Rg Aiken MD | | Preoperative Diagnoses: [...] head was placed in a horseshoe head batcher with his C-collar still | | attached [...] the incision down to the cranium. Once stebbins | | skull was reached circumferentially around the prior incision, a #1 [place] was used | | to subperiosteally dissect [...] for this encounter.Sonal Nunez, | | [id number] [place], [place] | | [address]-1390094-515-5937Xypkui Orina, MDJB/MODLDD: 11/05/2017 20:38:01DT: 11/06/2017 | | 00:27:33Job #: [id number] | |HATTIE/DUC | | | | | | /[id number] | + + CT HEAD WO CONTRAST [...] Surgeon: Magdiel | | | MD Dayami Mft: Rg Aiken MD Pre-op Diagnosis: | | [...] PGY-4 Neurological Surgery Pager | | | [phone] | | + + + CAPILLARY BLOOD [...] [facility] | [address] | [place], [place] | | | [facility]IA [facility] [employer] | [address] | [address] | | | TESTS | | | [...] [facility] | [address] | [place], [place] | | | [facility]IA [facility] [employer] | [facility] | [address] | | | TESTS | | | [...] Note | + + | Service Account, MATINAS BIOPHARMA Res In Interface - 11/05/2017 11:31 AM [...] [facility] | [address] | [place] [address] | | | SERVICES, CORE | VILMA [...] [facility] | [address] | [place] [address] | | | SERVICES, CORE | [address] [...] | | | LABORATORY | | | [place] | | | SERVICES, | | | [...] the MDRD equation recommended by the | [facility] | | National Kidney Disease Education Program. [...] + + | [facility] | [address] | [place] [address] | | | SERVICES, CORE | [address] [...] | + + + + + | [facility] | [address] | [place] [address] | | | ELIN, NATALEE | VILMA [...] + + + + | PRODUCT | [id number] | | [facility] | | | UNIT [...] + + + + | EXPIRATION | [id number] | | [facility] | | | DATE [...] + + + + | BLOOD | [id number] | | [facility] | | | PRODUCT [...] [facility] | [address] | [place] [address] | | | SERVICES, | [address] [...] + + + + | PRODUCT | [id number] | | [facility] | | | UNIT [...] + + + + | EXPIRATION | [id number] | | [facility] | | | DATE [...] + + + + | BLOOD | [id number] | | [facility] | | | PRODUCT [...] | + + + + + | [facility] | [address] | [place] [address] | | | SERVICES, | [address] [...] [facility] | [address] | [place] [address] | | | NATALEE WORTHINGTON | VILMA [...] [facility] | [address] | [place] [address] | | | SERVICES, | [address] [...] [facility] | [address] | [place] [address] | | | SERVICES, | [address] [...] | + + + + + | [facility] | [address] | [place] [address] | | | SERVICES, CORE | VILMA [...] + + | [facility] | [address] | [place], [place] | | | CARDIOLOGY | [address] | [address] | | + + + + + [...] | + + + + + | [facility] | [address] | [place] [address] | | | SERVICES, CORE | VILMA [...] FOR INCUR[facility]LES | [address] | [place] [address] | | | SERVICES, CORE | P[address] [...] + | [facility] - | [address] | [place] [address] | | | [place] | | | | + + + [...] | Triglyceride Reference Range: Normal: <150 | [facility] | | mg/dL Borderline High: 150-199 mg/dL High: | LABORATORY | | 200-499 mg/dL Very High: >=500 mg/dL | ELIN, NATALEE | + + + + + + + + | Performing | Address | City/State/Zipcode | Phone Number | | Organization | | | | + + + + + | [facility] | [address] | [place] [address] | | | ELIN, NATALEE | VILMA [...] [facility] | [address] | [place] [address] | | | SERVICES, CORE | VILMA [...] | | | LABORATORY | | | [place] | | | SERVICES, | | | [...] the MDRD equation recommended by the | [facility] | | National Kidney Disease Education Program. [...] | + + + + + | [facility] | [address] | [place] [address] | | | NATALEE WORTHIGNTON | VILMA [...] + + | [facility] | [address] | [place] [address] | | | NATALEE WORTHINGTON | VILMA [...] [facility] | [address] | [place] [address] | | | SERVICES, CORE | PARK [...] | | | LABORATORY | | | [place] | | | SERVICES, | | | [...] | + + + + + | [facility] | [address] | [place] [address] | | | SERVICES, CORE | [address] | | | + + + + + MAGNESIUM, PLASMA (11/02/2017 6:14 AM PDT) + +-------+ + + + | Component | Value | Ref Range | Performed | Pathologist | | | | | At | Signature | + +-------+ + + + | MAGNESIUM,P | 1.9 | 1.6 - 2.6 mg/dL | [facility] | | | LASMA | | | [...] [facility] | [address] | [place] [address] | | | SERVICES, CORE | PARK [...] | | | LABORATORY | | | [place] | | | SERVICES, | | | [...] + | [facility] | [address] | [place] [address] | | | NATLAEE WORTHINGTON | [place] [...] OF | [address] | [place], [place] | | | CARDIOLOGY | [address] | [id number] | | + + + + + [...] [facility] | [address] | [place] [address] | | | SERVICES, CORE | PARK [...] | | | LABORATORY | | | [place] | | | SERVICES, | | | [...] the MDRD equation recommended by the | [facility] | | National Kid[employer] [...] + + | Performing | Address | City/State/[facility] Cent[facility]ode | Phone Number | | Organization | | | | + + + + + | [facility] | [address] | [place] [address] | | | ELIN, CORE | VILMA [...] MD 10/31/2017 8:19 PM Dictation initiated: Gage Solmoon MD | | 10/31/2017 6:09 PM | [...] [place], [place] | | | CARDIOLOGY | [facility] | [address] | | + + + + + [...] | | | LABORATORY | | | [place] | | | SERVICES, | | | [...] | + + + + + | [facility] | [address] | [place] [address] | | | NATALEE WORTHINGTON | VILMA [...] | + + + + + | [facility] | [address] | [place] [address] | | | SERVICES, CORE | PARK [...] MARQUAM | [address] | [place], [place] | | | [facility] CARE | [address] | [address] | | | TESTS | | | [...] | + + + + + | [facility] | [address] | [place] [address] | | | NATALEE WORTHINGTON | PARK [...] | | | LABORATORY | | | [place] | | | SERVICES, | | | [...] SELENA MCNAIR | [address] | [place] [address] | | | SERVICES, CORE | PARK [...] [facility] | | | | | [facility] | | | | [...] PIYUSH | [address] | [place], [place] | | | [facility] | [facility] | [address] | | | TESTS | | | [...] [facility] | [address] | [place] [address] | | | SERVICES, CORE | PARK [...] | | | LABORATORY | | | [place] | | | SERVICES, | | | [...] | [facility] | [address] | [place] [address] | | | NATALEE WORTHINGTON | VILMA [...] SELENA PICKETT | [address] | [place], [place] | | | [facility] OF [facility] | [address] | [address] | | | TESTS | | | [...] DEPT OF | [address] | [place], [place] | | | CARDIOLOGY | [address] | [address] | | + + + + + [...] MARQUAM | [address] | [place], [place] | | | [facility] | [address] | [address] | | | TESTS | | | [...] - PIYUSH | [address] | [place], [place] | | | [facility] | [address] | [address] | | | TESTS | | | [...] [facility] | [address] | [place] [address] | | | SERVICES, CORE | VILMA [...] | + + + + + | [facility] | [address] | [place] [address] | | | [place] | | | [...] [facility] | [address] | [place] [address] | | | SERVICES, CORE | VILMA [...] [facility] | [address] | [place] [address] | | | SERVICES, CORE | PARK [...] [facility] | [address] | [place] [address] | | | SERVICES, CORE | VILMA [...] | | | LABORATORY | | | [place] | | | SERVICES, | | | [...] | + + + + + | [facility] | [address] | [place] [address] | | | SERVICES, CORE | VILMA [...] | + + + + + | [facility] | [address] | [place] [address] | | | SERVICES, CORE | VILMA [...] (H) | 70 - 99 mg/dL | [facility] - | | | [...] PICKETT | [address] | [place], [place] | | | [facility] CARE | [address] | [address] | | | TESTS | | | [...] MARQUAM | 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 Catheter lot number: | | | [id number] with a length of 55 cm was [...] PIYUSH | [address] | [place], [place] | | | GLORIA GENAO OF GM | [address] | [address] | | | TESTS | | | [...] GEET OF | [address] | [place], [place] | | | CARDIOLOGY | [address] | [address] | | + + + + + [...] - PIYUSH | [address] | [place], [place] | | | [facility] | [address] | [address] | | | TESTS | | | [...] [facility] | [address] | [place] [address] | | | SERVICES, CORE | PARK [...] | | | LABORATORY | | | [place] | | | SERVICES, | | | [...] the MDRD equation recommended by the | [facility] | | National Kidney Disease Education Program. [...] | + + + + + | [facility] | [address] | [place] [address] | | | NATALEE WORTHINGTON | VILMA [...] MARQUAM | [address] | [place], [place] | | | [facility] CARE | [address] | [address] | | | TESTS | | | [...] PICKETT | [address] | [place], [place] | | | [facility] | [address] | [address] | | | TESTS | | | [...] MARQUAM | [address] | [place], [place] | | | [facility] CARE | [address] | [address] | | | TESTS | | | [...] | + + + + + | [facility] | [address] | [place] [address] | | | SERVICES, NATALEE | VILMA [...] | | | LABORATORY | | | [place] | | | SERVICES, | | | [...] [facility] | [address] | [place] [address] | | | SERVICES, CORE | PARK [...] PIYUSH | [address] | [place], [place] | | | [facility] CARE | [address] | [address] | | | TESTS | | | [...] | | | LABORATORY | | | [place] | | | SERVICES, | | | [...] + | [facility] | [address] | [place] [address] | | | SERVICES, CORE | VILMA [...] MARQUAM | [address] | [place], [place] | | | [facility] CARE | [address] | [address] | | | TESTS | | | [...] DEPT OF | [address] | [place], [place] | | | CARDIOLOGY | [address] | [address] | | + + + + + [...] PICKETT | [address] | [place], [place] | | | [facility] | [address] | [address] | | | TESTS | | | [...] DEPT OF | [address] | [place], [place] | | | CARDIOLOGY | [address] | [address] | | + + + + + [...] [facility] | [address] | [place] [address] | | | SERVICES, CORE | PARK [...] - | | | | | | [facility] | | + + + + + + + + | Specimen | + + | Blood - Blood | | (substance) | + + + + + + + | Performing | Address | City/State/Zipcode | Phone Number | | Organization | | | | + + + + + | [facility] | [address] | [place] [address] | | | [facility] | | | | + [...] [facility] | [address] | [place] [address] | | | SERVICES, NATALEE | VILMA [...] [facility] | [address] | [place] [address] | | | SERVICES, CORE | PARK [...] [facility] | [address] | [place] [address] | | | SERVICES, CORE | PARK [...] [facility] INC[facility] | [address] | [place] [address] | | | SERVICES, CORE | VILMA [...] [facility] | [address] | [place] [address] | | | SERVICES, CORE | PARK [...] | [facility] | [address] | [place] [address] | | | SERVICES, CORE | VILMA [...] [facility] | [address] | [place] [address] | | | SERVICES, CORE | PARK [...] [facility] | [address] | [place] [address] | | | SERVICES, CORE | PARK [...] [facility] | [address] | [place] [address] | | | SERVICES, CORE | VILMA [...] [facility] INC[facility] | [address] | [place] [address] | | | SERVICES, CORE | VILMA [...] | | | LABORATORY | | | [place] | | | SERVICES, | | | [...] | [facility] | [address] | [place] [address] | | | SERVICES, CORE | PARK [...] | | | correct patient, procedure, equipment, 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 Catheter lot number: [id number] with a length of 55 | | [...] At | + + + | EXAM: [place] CHEST 1 VIEW HISTORY: PICC placed-pt ready. [...] Interface - 10/24/2017 3:43 PM PDT EXAM: [place] CHEST 1 | | VIEW HISTORY: PICC [...] PICKETT | [address] | [place], [place] | | | [facility]O OF CARE | [facility] | [address] | | | TESTS | | | [...] | | Surgical Critical Care, PGY7 Pager: [phone] | | + + + CAPILLARY BLOOD [...] MARQUAM | [address] | [place] | | | [facility] GE[facility]O [facility] CARE | [address] | [address] | | | TESTS | | | [...] - PIYUSH | [address] | [place], [place] | | | [facility] | [address] | [address] | | | TESTS | | | [...] | | | LABORATORY | | | [place] | | | SERVICES, | | | [...] the MDRD equation recommended by the | [facility] | | National Kidney [...] | + + + + + | [facility] | [address] | [place] [address] | | | SERVICES, CORE | VILMA [...] [facility] | [address] | [place] [address] | | | ELIN, NATALEE | VILMA [...] PICKETT | [address] | [place], [place] | | | GL[facility] GE[facility]O OF CARE | [address] | [address] | | | TESTS | | | [...] + + | [facility] | [address] | [place] [address] | | | SERVICES, CORE | VILMA [...] | | | LABORATORY | | | [place] | | | SERVICES, | | | [...] | [facility] | [address] | [place] [address] | | | NATALEE WORTHINGTON | VILMA [...] DEPT OF | [address] | [place], [place] | | | CARDIOLOGY | [address] | [address] | | + + + + + IR GASTROSTOMY TUBE EXCHANGE (10/22/2017 2:42 PM PDT) + + | Specimen | + + | | + + + + + | Narrative | Performed At | + + + | Procedure: Gastrostomy tube exchange Primary attending | [facility] | | game artist: Shade Goodwin M.D. Preoperative diagnosis: | RADIOLOGY [...] Procedure: | | Gastrostomy tube exchangePrimary attending game artist: Shade Goodwin, | | BrynPreoperative diagnosis: Malfunctioning [...] Note | + + | Service Account, MATINAS BIOPHARMA Res In Interface - 10/22/2017 10:34 AM [...] + + | [facility] DEPT [facility] | [address] | [place], [place] | | | CARDIOLOGY | [address] | [address] | | + + + + + [...] MCHC, PLT, IG% and IG# effective | [facility] | | 09/05/2017 | LABORATORY | | | NATALEE WORTHINGTON | + + + + + + + + | Performing | Address | City/State/Zipcode | Phone Number | | Organization | | | | + + + + + | [facility] | [address] | [place] [address] | | | NATALEE WORTHINGTON | VILMA [...] | | | LABORATORY | | | [place] | | | SERVICES, | | | [...] the MDRD equation recommended by the | [facility] | | National Kidney Disease Education Program. [...] [facility] | [address] | [place] [address] | | | SERVICES, CORE | VILMA [...] DEPT OF | [address] | [place], [place] | | | CARDIOLOGY | [address] | [address] | | + + + + + [...] | | | LABORATORY | | | [place] | | | SERVICES, | | | [...] [facility] | [address] | [place] [address] | | | SERVICES, CORE | VILMA [...] [facility] INC[facility] | [address] | [place] [address] | | | SERVICES, CORE | VILMA [...] GEET OF | [address] | [place], [place] | | | CARDIOLOGY | [address] | [address] | | + + + + + [...] | + + + + + | [facility] | [address] | [place] [address] | | | SERVICES, CORE | PARK [...] | | | LABORATORY | | | [place] | | | SERVICES, | | | [...] [facility] INC[facility] | [address] | [place] [address] | | | SERVICES, CORE | VILMA [...] + | [facility] DEPT OF | [address] | [place], [place] | | | CARDIOLOGY | [address] | [address] | | + + + + + [...] | | | LABORATORY | | | [place] | | | SERVICES, | | | [...] | + + + + + | [facility] | [address] | [place] [address] | | | SERVICES, CORE | VILMA [...] | + + + + + | [facility] | [address] | [place] [address] | | | SERVICES, CORE | [address] | | | + + + + + 12 LEAD ECG (10/16/2017 11:23 AM PDT) + + + + + + | Component | Value | Ref Range | Performed | Pathologist | | | | | At | Signature | + + + + + + | VENTRICULAR | 63 | bpm | [facility] | | | [...] DEPT OF | [address] | [place], [place] | | | CARDIOLOGY | [address] | [address] | | + + + + + [...] | | | LABORATORY | | | [place] | | | SERVICES, | | | [...] [facility] | [address] | [place] [address] | | | SERVICES, CORE | PARK [...] | + + + + + | [facility] | [address] | [place] [address] | | | SERVICES, CORE | VILMA [...] OF | [address] | [place], [place] | | | CARDIOLOGY | [address] | [address] | | + + + + + [...] PICKETT | [address] | [place], [place] | | | [facility] GE[facility]O OF CARE | [address] | [address] | | | TESTS | | | [...] [facility] | [address] | [place] [address] | | | NATALEE WORTHINGTON | VILMA [...] [facility]YUSH | [address] | [place], [place] | | | GL[facility] GE[facility]O OF CARE | [address] | [address] | | | TESTS | | | [...] + + | [facility] DEPT OF | [address] | [place], [place] | | | CARDIOLOGY | [address] | [address] | | + + + + + [...] [facility] | [address] | [place] [address] | | | NATALEE WORTHINGTON | [address]ARK [...] | | | LABORATORY | | | [place] | | | SERVICES, | | | [...] | + + + + + | [facility] | [address] | [place] [address] | | | NATALEE WORTHINGTON | VILMA [...] | + + + + + | [facility] | [address] | [place] [address] | | | NATALEE WORTHINGTON | VILMA [...] MARQUAM | [address] | [place] | | | GL[facility] GE[facility]O OF CARE | [address] | [address] | | | TESTS | | | [...] PIYUSH | [address] | [place], [place] | | | [facility] | [facility] | [address] | | | TESTS | | | [...] [facility] | [address] | [place] [address] | | | SERVICES, NATALEE | VILMA [...] | | | LABORATORY | | | [place] | | | SERVICES, | | | [...] | + + + + + | [facility] | [address] | [place] [address] | | | SERVICES, NATALEE | [address] | | | + + + + + OPERATION RECORD (10/12/2017 8:50 PM PDT) + + | Procedure Note | + + | Pilar Cotto MD - 10/12/2017 8:50 PM PDT Date of Service: 10/12/2017 | | Attending Surgeon: Chaz Munoz MD Mft(s): Randell Dixon M.D., | | fellow. George [...] 10/12/2017 19:50:06DT: 10/12/2017 20:50:54Job #: | | [id number] | + + X-RAY PORTABLE CHEST 1 VIEW (10/12/2017 7:50 PM PDT) + + | Specimen | + + | | + + + + + | Narrative | Performed At | + + + | EXAM: [place] CHEST 1 VIEW HISTORY: Evaluate endotracheal tube [...] Note | + + | Service Account, MATINAS BIOPHARMA Res In Interface - 10/13/2017 9:04 AM PDT EXAM: [place] CHEST 1 | | VIEW HISTORY: Evaluate [...] | ET tube tip 5 cm above yiafn. Minimal bibasilar atelectasis. I have personally reviewed [...] [facility] | [address] | [place], [place] | | | [facility]ARE | [address] | [address] | | | TESTS | | | [...] [facility] | [address] | [place] [address] | | | SERVICES, CORE | PARK [...] | | | LABORATORY | | | [place] | | | SERVICES, | | | [...] the MDRD equation recommended by the | [facility] | | National Kidney [...] [facility] | [address] | [place] [address] | | | SERVICES, CORE | PARK [...] | + + + + + | [facility] | [address] | [place] [address] | | | SERVICES, NATALEE | VILMA [...] DEPT OF | [address] | [place], [place] | | | CARDIOLOGY | [address] | [address] | | + + + + + [...] DEPT OF | [address] | [place], [place] | | | CARDIOLOGY | [address] | [address] | | + + + + + [...] [facility] | [address] | [place] [address] | | | SERVICES, CORE | PARK [...] [facility] | [address] | [place] [address] | | | SERVICES, CORE | PARK [...] | | | LABORATORY | | | [place] | | | SERVICES, | | | [...] | + + + + + | [facility] [employer] | [address] | [place] [address] | | | NATALEE WORTHINGTON | [address] | | | + + + + + PROCEDURE NOTE (10/10/2017 10:00 PM PDT) + + + | Narrative | Performed At | + + + | Darius Link MD 10/12/2017 11:11 AM OPERATIVE REPORT | | | DATE OF OPERATION: 10/10/2017 ATTENDING SURGEON: 1. Dr. Munoz | | | CORPORATE TRAVEL EXPERT: 1. Darius Link MD INDICATIONS: Dysphagia | | | and need for usp nutrition access PREOPERATIVE DIAGNOSIS: | | | 1.Dysphagia and need for usp nutrition access | | | POSTOPERATIVE DIAGNOSIS: [...] Dictation to | | | [place] [id number] Chief Resident | | | Neurosurgery | [...] + + | [facility] | [address] | [place] [address] | | | SERVICES, CORE | PARK [...] | | | LABORATORY | | | [place] | | | SERVICES, | | | [...] | + + + + + | [facility] | [address] | [place] [address] | | | SERVICES, CORE | PARK [...] [facility] | [address] | [place] [address] | | | ELIN, NATALEE | [address] | | | + + + + + OPERATION RECORD (10/10/2017 12:40 PM PDT) + + | Procedure Note | + + | Magdiel Stock MD - 10/10/2017 12:40 PM PDT Date of Service: 10/10/2017 Attending | | Surgeon: Magdiel Stock MD Mft(s): Cecilia Hernandez, | | . Preoperative Diagnoses: [...] This is a 67-year-old male. Please see [facility] for full details. He | [...] | the note for this encounter.Sonal Nunez MDTXDANIELLE [id number] [facility] | | [place] [phone] Orina, MDFA/MODLDD: | | 10/10/2017 11:52:15DT: 10/10/2017 12:40:41Job #: [id number] | | | | | |I was present for the critical portions of the procedure as described in the note for this encounter. | | | |Magdiel Stock MD | | | |Magdiel Stock MD | |[address] | |[address] [facility] | |[facility] | |[place] [address] | |[phone] | | | | | |Magdiel Stock MD | |FA/MODL | | | | | | /[id number] | + + X-RAY ABDOMEN 1 VIEW [...] + | [facility] | [address] | [place] [address] | | | [facility] | | | | + + [...] + | [facility] | [address] | [place] [address] | | | [place] | | | [...] Gram Stain: No squamous epithelial cells | [facility] | | Many polymorphonuclear cells No organisms seen | | + + + + + + + + | Performing | Address | City/State/Zipcode | Phone Number | | Organization | | | | + + + + + | [facility] | [address] | [place] [address] | | | [place] | | | [...] + | [facility] | [address] | [place] [address] | | | [place] | | | | + + + [...] + | [facility] | [address] | [place] [address] | | | [place] | | | [...] Gram Stain: No squamous epithelial cells | [facility] | | Many polymorphonuclear cells No organisms seen | | + + + + + + + + | Performing | Address | City/State/Zipcode | Phone Number | | Organization | | | | + + + + + | [facility] | [address] | [place] [address] | | | [place] | | | [...] detected | [facility] - | | | [place] | + + + + + + + + | Performing | Address | City/State/Zipcode | Phone Number | | Organization | | | | + + + + + | [facility] | [address] | [place] [address] | | | [place] | | | | + + + [...] Gram Stain: No squamous epithelial cells | [facility] | | Few polymorphonuclear cells No organisms seen | | + + + + + + + + | Performing | Address | City/State/Zipcode | Phone Number | | Organization | | | | + + + + + | [facility] | [address] | [place] [address] | | | [facility] | | | | + + [...] | | cells No organisms seen | [place] | + + + + + + + + | Performing | Address | City/State/Zipcode | Phone Number | | Organization | | | | + + + + + | [facility] | [address] | [place] [address] | | | [facility] | | | | + + [...] | + + + + + | [facility] | [address] | [place] [address] | | | [place] | | | [...] + | [facility] | [address] | [place] [address] | | | [place] | | | [...] + | [facility] | [address] | [place] [address] | | | [place] | | | [...] + | [facility] | [address] | [place] [address] | | | [place] | | | [...] Gram Stain: No squamous epithelial cells | [place] | | Moderate polymorphonuclear cells No organisms seen | | + + + + + + + + | Performing | Address | City/State/Zipcode | Phone Number | | Organization | | | | + + + + + | [facility] | [address] | [place] [address] | | | [place] | | | [...] detected | [facility] - | | | [place] | + + + + + + + + | Performing | Address | City/State/Zipcode | Phone Number | | Organization | | | | + + + + + | [facility] | [address] | [place] [address] | | | [place] | | | | + + + [...] + | [facility] | [address] | [place] [address] | | | [place] | | | [...] + | [facility] | [address] | [place] [address] | | | [place] | | | [...] + | [facility] | [address] | [place] [address] | | | [place] | | | | + + + [...] | + + + + + | [employer] | [address] | [place] [address] | | | SERVICES, CORE | PARK [...] [facility] | [address] | [place] [address] | | | NATALEE WORTH[place] | [place] [...] | + + + + + | [facility] | [address] | [place] [address] | | | SERVICES, NATALEE | PARK [...] | | | LABORATORY | | | [place] | | | SERVICES, | | | [...] | + + + + + | [facility] | [address] | [place] [address] | | | SERVICES, CORE | PARK [...] + + | [facility] | [address] | [place], [place] | | | CARDIOLOGY | [address] | [address] | | + + + + + [...] + + + + | PRODUCT | [id number] | | [facility] | | | UNIT [...] + + + + | EXPIRATION | [id number] | | [facility] | | | DATE [...] + + + + | BLOOD | [id number] | | [facility] | | | PRODUCT [...] [facility] | [address] | [place] [address] | | | SERVICES, | [address] [...] + + + + | PRODUCT | [id number] | | [facility] | | | UNIT [...] + + + + | EXPIRATION | [id number] | | [facility] | | | DATE [...] + + + + | BLOOD | [id number] | | [facility] | | | PRODUCT [...] [facility] | [address] | [place] [address] | | | SERVICES, | [address] [...] [facility] | [address] | [place] [address] | | | SERVICES, | [address] [...] | + + + + + | [facility] | [address] | [place] [address] | | | SERVICES, | [address] [...] | + + + + + | [facility] | [address] | [place] [address] | | | SERVICES, | [address] [...] | + + + + + | [facility] | [address] | [place] [address] | | | NATALEE WORTHINGTON | V[place]MA [...] DEPT OF | [address] | [place], [place] | | | CARDIOLOGY | [address] | [address] | | + + + + + [...] - [facility] | [address] | [place], [place] | | | [facility] | [address] | [address] | | | TESTS | | | [...] | + + + + + | [facility] | [address] | [place] [address] | | | SERVICES, CORE | PARK [...] [facility] | [address] | [place] [address] | | | SERVICES, CORE | PARK [...] | | | LABORATORY | | | [place] | | | SERVICES, | | | [...] the MDRD equation recommended by the | [facility] | | National Kidney Disease Education Program. [...] FOR INCURABLES | [address] | [place] [address] | | | ELIN, NATALEE | VILMA [...] (H) | 70 - 99 mg/dL | [facility] - | | | [...] PICKETT | [address] | [place], [place] | | | [facility] | [address] | [address] | | | TESTS | | | [...] PICKETT | [address] | [place], [place] | | | GLORIA GENAO OF GM | [address] | [address] | | | TESTS | | | [...] PIYUSH | [address] | [place], [place] | | | [facility] CARE | [facility] | [address] | | | TESTS | | | [...] (H) | 70 - 99 mg/dL | [facility] - | | | [...] PICKETT | [address] | [place], [place] | | | [facility] | [address] | [address] | | | TESTS | | | [...] PICKETT | [address] | [place], [place] | | | GLORIA GENAO OF [facility] | [address] | [address] | | | TESTS | | | [...] | + + + + + | [facility] | [address] | [place] [address] | | | SERVICES, CORE | PARK [...] [facility] | [address] | [place] [address] | | | SERVICES, NATALEE | VILMA [...] | | | LABORATORY | | | [place] | | | SERVICES, | | | [...] | [facility] | [address] | [place] [address] | | | SERVICES, CORE | VILMA [...] MARQUAM | [address] | [place], [place] | | | [facility] GE[facility] CARE | [address] | [address] | | | TESTS | | | [...] (H) | 70 - 99 mg/dL | [facility] - | | | GLUCOSE, | | [...] - MARQUAM | [address] | [place], [place] | | | [facility] | [address] | [address] | | | TESTS | | | [...] DEPT OF | [address] | [place], [place] | | | CARDIOLOGY | [address] | [address] | | + + + + + [...] MARQUAM | [address] | [place], [place] | | | [facility] CARE | [address] | [address] | | | TESTS | | | [...] | + + + + + | [facility] | [address] | [place] [address] | | | SERVICES, CORE | [address] | | | + + + + + MAGNESIUM, PLASMA (10/06/2017 7:25 AM PDT) + +-------+ + + + | Component | Value | Ref Range | Performed | Pathologist | | | | | At | Signature | + +-------+ + + + | MAGNESIUM,P | 2.0 | 1.6 - 2.6 mg/dL | [facility] | | | LASMA | | | [...] [facility] | [address] | [place] [address] | | | ELIN, NATALEE | VILMA [...] | | | LABORATORY | | | [place] | | | SERVICES, | | | [...] | + + + + + | [facility] [employer] | [address] | [place] [address] | | | SERVICES, NATALEE | VILMA [...] RAPHAELAM | [address] | [place], [place] | | | [facility] CARE | [facility] | [address] | | | TESTS | | | [...] PAWANQUAM | [address] | [place], [place] | | | [facility] | [address] | [address] | | | TESTS | | | [...] PICKETT | [address] | [place], [place] | | | GLORIA GENAO OF GM | [facility] | [address] | | | TESTS | | | [...] - MARQUAM | [address] | [place], [place] | | | [facility] | [address] | [address] | | | TESTS | | | [...] DEPT OF | [address] | [place], [place] | | | CARDIOLOGY | [address] | [address] | | + + + + + [...] | + + + + + | [facility] | [address] | [place] [address] | | | NATALEE WORTHINGTON | VILMA [...] | + + + + + | [facility] | [address] | [place] [address] | | | SERVICES, NATALEE | VILMA [...] | | | LABORATORY | | | [place] | | | SERVICES, | | | [...] FOR INCURABLES | [address] | [place] [address] | | | SERVICES, CORE | VILMA [...] PICKETT | [address] | [place], [place] | | | GLORIA GENAO OF GM | [address] | [address] | | | TESTS | | | [...] PIYUSH | [address] | [place], [place] | | | GLORIA GENAO OF [facility] | [facility] | [address] | | | TESTS | | | [...] (H) | 70 - 99 mg/dL | [facility] - | | | [...] PICKETT | [address] | [place], [place] | | | [facility] | [address] | [address] | | | TESTS | | | [...] PIYUSH | [address] | [place], [place] | | | GLORIA GENAO OF GM | [address] | [address] | | | TESTS | | | [...] - PIYUSH | [address] | [place], [place] | | | [facility] OF [facility] | [facility] | [address] | | | TESTS | | | [...] | + + + + + | [facility] | [address] | [place] [address] | | | SERVICES, CORE | VILMA [...] LABORATORY | [address] | [place] [address] | | | SERVICES, CORE | PARK [...] (H) | 70 - 99 mg/dL | [facility] | | | PLASMA | | | [...] | | | LABORATORY | | | [place] | | | SERVICES, | | | [...] the MDRD equation recommended by the | [facility] | | National Kidney [...] | + + + + + | [facility] | [address] | [place] [address] | | | SERVICES, CORE | PARK [...] MARQUAM | [address] | [place], [place] | | | [facility] CARE | [facility] | [address] | | | TESTS | | | [...] PICKETT | [address] | [place], [place] | | | [facility] | [address] | [address] | | | TESTS | | | [...] [facility] | [address] | [place] [address] | | | SERVICES, CORE | PARK [...] by | | | | | | [email or web address] | | | | | | Rogelio Pickard, [facility] [place] | | | | | | [address] | | | | | | [phone].[employer]lab. | | | | | | Gui [...] [facility] | [address] | [place], [place] | | | [facility] | | [address] | | + + + + + [...] | + + + + + | [employer] | [address] | [place] [address] | | | SERVICES, CORE | VILMA [...] FOR INCURABLES | [address] | [place] [address] | | | SERVICES, CORE | VILMA [...] modified from | [facility] | | original steam plant operator's approved specifications. The performance | LABORATORY | | of the PHOTOGRAPHY INTERN HIV Combo test, with or without [...] FOR INCURABLES | [address] | [place] [address] | | | SERVICES, SPECIAL | VILMA [...] MARQUAM | [address] | [place], [place] | | | [facility] CARE | [address] | [address] | | | TESTS | | | [...] PIYUSH | [address] | [place], [place] | | | [facility] | [address] | [address] | | | TESTS | | | [...] SELENA MCNAIR | [address] | [place] [address] | | | SERVICES, NATALEE | VILMA [...] | [facility] | [address] [address] | [place] [address] | | | SERVICES, CORE | PARK [...] | | | LABORATORY | | | [place] | | | SERVICES, | | | [...] the MDRD equation recommended by the | [facility] | | National Kidney [...] | + + + + + | [facility] | [address] | [place] [address] | | | SERVICES, CORE | VILMA [...] 96 | 70 - 99 mg/dL | [facility] - | | | [...] PICKETT | [address] | [place], [place] | | | [facility] OF [facility] | [address] | [address] | | | TESTS | | | [...] - PIYUSH | [address] | [place], [place] | | | [facility]IA GE[facility]O OF [facility] | [address] | [address] | | | TESTS | | | [...] DEPT OF | [address] | [place], [place] | | | CARDIOLOGY | [address] | [address] | | + + + + + [...] At | + + + | EXAM: [place] CHEST 1 VIEW HISTORY: Evaluate PICC placement [...] Note | + + | Service Account, GiveNext In Interface - 10/02/2017 2:07 PM PDT EXAM: [place] CHEST 1 | | VIEW HISTORY: Evaluate [...] - RAPHAEL | [address] | [place], [place] | | | [facility] | [address] | [address] | | | TESTS | | | | + + + + + X-RAY PORTABLE CHEST 1 VIEW (10/02/2017 8:56 AM PDT) + + | Specimen | + + | | + + + + + | Narrative | Performed At | + + + | EXAM: [place] CHEST 1 VIEW HISTORY: new leukocytosis, eval [...] Interface - 10/02/2017 10:27 AM PDT EXAM: [place] CHEST 1 | | VIEW HISTORY: new [...] PICKETT | [address] | [place], [place] | | | [facility] | [address] | [address] | | | TESTS | | | [...] [facility] | [address] | [place] [address] | | | NATALEE WORTHINGTON | VILMA [...] | + + + + + | [facility] | [address] | [place] [address] | | | NATALEE WORTHINGTON | PARK [...] | | | LABORATORY | | | [place] | | | SERVICES, | | | [...] | + + + + + | [facility] | [address] | [place] [address] | | | SERVICES, CORE | PARK [...] MARQUAM | [address] | [place], [place] | | | [facility] | [address] | [address] | | | TESTS | | | [...] - PIYUSH | [address] | [place], [place] | | | [facility] | [address] | [address] | | | TESTS | | | [...] Note | + + | Service Account, MATINAS BIOPHARMA Res In Interface - 10/01/2017 2:15 PM [...] MARQUAM | [address] | [place], [place] | | | [facility] | [address] | [address] | | | TESTS | | | [...] Note | + + | Service Account, GiveNext In Interface - 10/01/2017 11:34 AM PDT [...] PICKETT | [address] | [place], [place] | | | [facility] | [address] | [address] | | | TESTS | | | [...] | + + + + + | [facility] | [address] | [place] [address] | | | SERVICES, CORE | VILMA [...] [facility] | [address] | [place] [address] | | | SERVICES, NATALEE | VILMA [...] | | | LABORATORY | | | [place] | | | SERVICES, | | | [...] FOR INCURABLES | [address] | [place] [address] | | | SERVICES, CORE | VILMA [...] MARQUAM | [address] | [place], [place] | | | [facility] CARE | [address] | [address] | | | TESTS | | | [...] - PIYUSH | [address] | [place], [place] | | | [facility] | [address] | [address] | | | TESTS | | | [...] GEET OF | [address] | [place], [place] | | | CARDIOLOGY | [address] | [address] | | + + + + + [...] PICKETT | [address] | [place], [place] | | | GLORIA GENAO OF GM | [address] | [address] | | | TESTS | | | [...] PIYUSH | [address] | [place], [place] | | | [facility] | [facility] | [address] | | | TESTS | | | [...] FOR INCURABLES | [address] | [place] [address] | | | SERVICES, CORE | VILMA [...] [facility] | [address] | [place] [address] | | | SERVICES, CORE | PARK [...] | | | LABORATORY | | | [place] | | | SERVICES, | | | [...] the MDRD equation recommended by the | [facility] | | National Kidney [...] FOR INCURABLES | [address] | [place] [address] | | | ELIN, NATALEE | VILMA [...] (H) | 70 - 99 mg/dL | [facility] - | | | [...] MARQUAM | [address] | [place], [place] | | | GLORIA GENAO OF GM | [facility] | [address] | | | TESTS | | | [...] PICKETT | [address] | [place], [place] | | | [facility] | [address] | [address] | | | TESTS | | | [...] MARQUAM | [address] | [place], [place] | | | [facility] | [facility] | [address] | | | TESTS | | | [...] DEPT OF | [address] | [place], [place] | | | CARDIOLOGY | [address] | [address] | | + + + + + [...] MARQUAM | [address] | [place], [place] | | | GLORIA GENAO OF GM | [address] | [address] | | | TESTS | | | [...] | + + + + + | [facility] | [address] | [place] [address] | | | NATALEE WORTHINGTON | PARK [...] | | | LABORATORY | | | [place] | | | SERVICES, | | | [...] [facility] | [address] | [place] [address] | | | SERVICES, CORE | PARK [...] | + + + + + | [facility] | [address] | [place] [address] | | | NAATLEE WORTHINGTON | [address] | | | [...] RAPHAELAM | [address] | [place], [place] | | | [facility] GE[facility] OF CARE | [facility] | [address] | | | TESTS | | | [...] (H) | 70 - 99 mg/dL | [facility] - | | | [...] RAPHAELAM | [address] | [place], [place] | | | GLORIA GENAO OF [facility] | [address] | [address] | | | TESTS | | | [...] PICKETT | [address] | [place], [place] | | | GLORIA GENAO OF GM | [facility] | [address] | | | TESTS | | | [...] DEPT OF | [address] | [place], [place] | | | CARDIOLOGY | [address] | [address] | | + + + + + [...] + + + | SELENA PICKETT | [address] | [place], [place] | | | [facility] | [address] | [address] | | | TESTS | | | [...] [facility] | [address] | [place] [address] | | | NATALEE WORTHINGTON | VILMA [...] | + + + + + | [facility] | [address] | [place] [address] | | | SERVICES, CORE | VILMA [...] | | | LABORATORY | | | [place] | | | SERVICES, | | | [...] | + + + + + | [facility] | [address] | [place] [address] | | | SERVICES, CORE | VILMA [...] + + | Performing | Address | City/State/[facility] | Phone Number | | Organization | | | | + + + + + | SELENA - PIYUSH | [address] | [place], [place] | | | GLORIA GENAO OF GM | [facility] | [address] | | | TESTS | | | [...] + | [facility] RAPHAEL | [address] [address] [address] [address] | [place], [place] | | | [facility] GE[facility]O OF [facility] | [address] | [address] | | | TESTS | | | [...] MARQUAM | [address] | [place], [place] | | | [facility] | [address] | [address] | | | TESTS | | | [...] PIYUSH | [address] | [place], [place] | | | [place] [facility] [facility] | [facility] | [address] | | | TESTS | | | [...] FOR INCURABLES | [address] | [place] [address] | | | SERVICES, CORE | VILMA [...] | + + + + + | [facility] | [address] | [place] [address] | | | SERVICES, CORE | PARK [...] | | | LABORATORY | | | [place] | | | SERVICES, | | | [...] the MDRD equation recommended by the | [facility] | | National Kidney [...] | + + + + + | [facility] | [address] | [place] [address] | | | SERVICES, CORE | VILMA [...] (H) | 70 - 99 mg/dL | [facility] - | | | [...] PICKETT | [address] | [place], [place] | | | [facility] CARE | [facility] | [address] | | | TESTS | | | [...] MARQUAM | [address] | [place], [place] | | | [facility] CARE | [address] | [address] | | | TESTS | | | [...] OF | [address] | [place], [place] | | | CARDIOLOGY | [address] | [address] | | + + + + + [...] PICKETT | [address] | [place], [place] | | | GLORIA GENAO OF GM | [address] | [address] | | | TESTS | | | [...] MARQUAM | [address] | [place], [place] | | | [facility] | [address] | [address] | | | TESTS | | | [...] PIYUSH | [address] | [place], [place] | | | [place] [facility] | [address] | [address] | | | TESTS | | | [...] FOR INCURABLES | [address] | [place] [address] | | | SERVICES, CORE | VILMA [...] | [facility] | [address] | [place] [address] | | | SERVICES, CORE | PARK [...] | | | LABORATORY | | | [place] | | | SERVICES, | | | [...] the MDRD equation recommended by the | [facility] | | National Kidney Disease Education Program. [...] | + + + + + | [facility] | [address] | [place] [address] | | | SERVICES, CORE | VILMA [...] (H) | 70 - 99 mg/dL | [facility] - | | | [...] PICKETT | [address] | [place], [place] | | | [facility] | [address] | [address] | | | TESTS | | | [...] | [facility] | [address] | [place] [address] | | | SERVICES, CORE | PARK [...] [facility] | [address] | [place] [address] | | | SERVICES, CORE | PARK [...] | | | LABORATORY | | | [place] | | | SERVICES, | | | [...] the MDRD equation recommended by the | [facility] | | National Kidney [...] | + + + + + | [facility] | [address] | [place] [address] | | | NATALEE WORTHINGTON | VILMA [...] DEPT OF | [address] | [place], [place] | | | CARDIOLOGY | [address] | [address] | | + + + + + [...] Note | + + | Service Account, MATINAS BIOPHARMA Res In Interface - 09/24/2017 4:09 PM [...] | | + +---------+ + + | [facility] | | | | | [facility] | | | | [...] | [facility] | [address] | [place] [address] | | | SERVICES, CORE | PARK [...] | | | LABORATORY | | | [place] | | | SERVICES, | | | [...] [facility] | [address] | [place] [address] | | | SERVICES, CORE | PARK [...] FOR INCURABLES | [address] | [place] [address] | | | SERVICES, CORE | PARK [...] [facility] | [address] | [place] [address] | | | NATALEE WORTHINGTON | VILMA [...] | Reference range change effective 12/11/16. | [facility] | | | LABORATORY | | | NATALEE WORTHINGTON | + + + + + + + + | Performing | Address | City/State/Zipcode | Phone Number | | Organization | | | | + + + + + | [facility] | [address] | [place] [address] | | | SERVICES, NATALEE | PARK [...] | | | LABORATORY | | | [place] | | | SERVICES, | | | [...] | + + + + + | [facility] | [address] | [place] [address] | | | SERVICES, CORE | VILMA [...] MARQUAM | [address] | [place], [place] | | | [facility] CARE | [address] | [address] | | | TESTS | | | [...] PIYUSH | [address] | [place], [place] | | | [facility] | [address] | [address] | | | TESTS | | | [...] FOR INCURABLES | [address] | [place] [address] | | | SERVICES, CORE | VILMA [...] DEPT OF | [address] | [place], [place] | | | CARDIOLOGY | [address] | [address] | | + + + + + [...] | + + + + + | [facility] | [address] | [place] [address] | | | SERVICES, CORE | [address] | | | + + + + + MAGNESIUM, PLASMA (09/22/2017 5:48 AM PDT) + +-------+ + + + | Component | Value | Ref Range | Performed | Pathologist | | | | | At | Signature | + +-------+ + + + | MAGNESIUM,P | 1.9 | 1.6 - 2.6 mg/dL | [facility] | | | LASMA [...] [facility] | [address] | [place] [address] | | | SERVICES, NATALEE | VILMA [...] | | | LABORATORY | | | [place] | | | SERVICES, | | | [...] FOR INCURABLES | [address] | [place] [address] | | | SERVICES, NATALEE | VILMA [...] PIYUSH | [address] | [place], [place] | | | [facility] | [address] | [address] | | | TESTS | | | [...] | + + + + + | [facility] | [address] | [place] [address] | | | NATALEE WORTHINGTON | VILMA [...] | [facility] | [address] | [place] [address] | | | SERVICES, CORE | VILMA [...] | | | LABORATORY | | | [place] | | | SERVICES, | | | [...] | + + + + + | [facility] | [address] | [place] [address] | | | SERVICES, CORE | [address] | | | + + + + + X-RAY ABD LTD FEEDING TUBE EVAL (09/20/2017 7:23 PM PDT) + + | Specimen | + + | | + + + + + | Narrative | Performed At | + + + | EXAM: ABD LTD FEEDING TUBE EVAL INDICATION: DHT placement | [facility] | | TECHNIQUE: Semi-upright [...] Note | + + | Service Account, MATINAS BIOPHARMA Res In Interface - 09/20/2017 7:50 PM [...] [facility] | [address] | [place], [place] | | | CARDIOLOGY | [address] | [id number] | | + + + + + [...] | + + + + + | [facility] | [address] | [place] [address] | | | SERVICES, CORE | PARK [...] [facility] | [address] | [place] [address] | | | SERVICES, NATALEE | VILMA [...] | | | LABORATORY | | | [place] | | | SERVICES, | | | [...] | + + + + + | [facility] | [address] | [place] [address] | | | SERVICES, CORE | VILMA [...] | + + + + + | [facility] | [address] | [place] [address] | | | SERVICES, CORE | [address] | | | + + + + + MAGNESIUM, PLASMA (09/19/2017 4:32 AM PDT) + +-------+ + + + | Component | Value | Ref Range | Performed | Pathologist | | | | | At | Signature | + +-------+ + + + | MAGNESIUM,P | 2.2 | 1.6 - 2.6 mg/dL | [facility] | | | [facility] | | | [...] [facility] | [address] | [place] [address] | | | SERVICES, NATALEE | VILMA [...] | | | LABORATORY | | | [place] | | | SERVICES, | | | [...] | + + + + + | [facility] | [address] | [place] [address] | | | SERVICES, CORE | VILMA [...] | + + + + + | [facility] | [address] | [place] [address] | | | SERVICES, CORE | [address] | | | + + + + + MAGNESIUM, PLASMA (09/18/2017 5:40 AM PDT) + +-------+ + + + | Component | Value | Ref Range | Performed | Pathologist | | | | | At | Signature | + +-------+ + + + | MAGNESIUM,P | 2.3 | 1.6 - 2.6 mg/dL | [facility] | | | LASMA [...] [facility] | [address] | [place] [address] | | | SERVICES, NATALEE | VILMA [...] | | | LABORATORY | | | [place] | | | SERVICES, | | | [...] [facility] | [address] | [place] [address] | | | SERVICES, CORE | VILMA [...] Note | + + | Service Account, GiveNext In Interface - 09/17/2017 11:53 AM PDT [...] [facility] | [address] | [place] [address] | | | SERVICES, CORE | PARK [...] [facility] | [address] | [place] [address] | | | SERVICES, CORE | PARK [...] | | | LABORATORY | | | [place] | | | SERVICES, | | | [...] the MDRD equation recommended by the | [facility] | | National Kidney [...] | + + + + + | [facility] | [address] | [place] [address] | | | ELIN, CORE | [address] | | | + + + + + X-RAY PORTABLE CHEST PICC LINE CHECK (09/16/2017 1:11 PM PDT) + + | Specimen | + + | | + + + + + | Narrative | Performed At | + + + | EXAM: [place] CHEST PICC LINE CHECK HISTORY: PICC placement [...] Note | + + | Service Account, MATINAS BIOPHARMA Res In Interface - 09/16/2017 1:34 PM PDT EXAM: [place] CHEST | | PICC LINE CHECK HISTORY: [...] At | + + + | EXAM: [place] CHEST PICC LINE CHECK HISTORY: Evaluate PICC [...] Note | + + | Service Account, MATINAS BIOPHARMA Res In Interface - 09/16/2017 11:41 AM PDT EXAM: [place] CHEST | | PICC LINE CHECK HISTORY: [...] [facility] | [address] | [place] [address] | | | SERVICES, CORE | PARK [...] [facility] | [address] | [place] [address] | | | SERVICES, CORE | PARK [...] | | | LABORATORY | | | [place] | | | SERVICES, | | | [...] FOR INCURABLES | [address] | [place] [address] | | | ELIN, NATALEE | [address] | | | + + + + + X-RAY PORTABLE CHEST 1 VIEW (09/15/2017 3:28 PM PDT) + + | Specimen | + + | | + + + + + | Narrative | Performed At | + + + | EXAM: [place] CHEST 1 VIEW HISTORY: COMPARISON: None. 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 Catheter lot number: [id number] with a length of 55 | | [...] | + + + + + | [facility] | [address] | [place] [address] | | | SERVICES, CORE | [address] | | | + + + + + MAGNESIUM, PLASMA (09/15/2017 6:02 AM PDT) + +-------+ + + + | Component | Value | Ref Range | Performed | Pathologist | | | | | At | Signature | + +-------+ + + + | MAGNESIUM,P | 2.1 | 1.6 - 2.6 mg/dL | [facility] | | | LASMA | | | [...] [facility] | [address] | [place] [address] | | | SERVICES, NATALEE | VILMA [...] | | | LABORATORY | | | [place] | | | SERVICES, | | | [...] FOR INCURABLES | [address] | [place] [address] | | | NATALEE WORTHINGTON | VILMA [...] + + | [facility] | [address] | [place] [address] | | | SERVICES, CORE | PARK [...] [facility] | [address] | [place] [address] | | | SERVICES, CORE | PARK [...] | | | LABORATORY | | | [place] | | | SERVICES, | | | [...] the MDRD equation recommended by the | [facility] | | National Kidney [...] | + + + + + | [facility] | [address] | [place] [address] | | | ELIN, CORE | PARK [...] [facility] | [address] | [place] [address] | | | ELIN, NATALEE | PARK [...] [facility] | [address] | [place] [address] | | | SERVICES, CORE | PARK [...] | | | LABORATORY | | | [place] | | | SERVICES, | | | [...] the MDRD equation recommended by the | [facility] | | National Kidney [...] | + + + + + | [facility] | [address] | [place] [address] | | | NATALEE WORTHINGTON | VILMA [...] | + + + + + | [facility] | [address] | [place] [address] | | | NATALEE WORTHINGTON | VILMA [...] | [facility] | [address] | [place] [address] | | | SERVICES, CORE | VILMA [...] | | | LABORATORY | | | [place] | | | SERVICES, | | | [...] | + + + + + | [employer] | [address] | [place] [address] | | | SERVICES, CORE | VILMA [...] Note | + + | Service Account, [employer] Res In Interface - 09/12/2017 6:48 AM [...] | + + + + + | [facility] | [address] | [place] [address] | | | SERVICES, CORE | VILMA [...] [facility] | [address] | [place] [address] | | | SERVICES, CORE | PARK [...] | | | LABORATORY | | | [place] | | | SERVICES, | | | [...] the MDRD equation recommended by the | [facility] | | National Kidney [...] | + + + + + | [facility] | [address] | [place] [address] | | | SERVICES, CORE | VILMA [...] FOR INCURABLES | [address] | [place] [address] | | | SERVICES, CORE | VILMA [...] Note | + + | Service Account, GiveNext In Interface - 09/10/2017 2:31 PM PDT [...] At | + + + | STUDY: [place] CHEST 1 VIEW 09/10/17 07:02:01 HISTORY: Possible [...] Interface - 09/10/2017 9:25 AM PDT STUDY: [place] CHEST 1 | | VIEW 09/10/17 07:02:01 [...] | | + +---------+ + + | [facility] | | | [...] | + + + + + | [facility] | [address] | [place] [address] | | | SERVICES, CORE | PARK [...] | + + + + + | [facility] | [address] | [place] [address] | | | SERVICES, CORE | VILMA [...] [facility] | [address] | [place] [address] | | | NATALEE WORTHINGTON | VILMA [...] | + + + + + | [facility] | [address] | [place] [address] | | | SERVICES, NATALEE | PARK [...] | | | LABORATORY | | | [place] | | | SERVICES, | | | [...] | + + + + + | [facility] | [address] | [place] [address] | | | SERVICES, CORE | [address] | | | + + + + + 12 LEAD ECG (09/10/2017 1:08 AM PDT) + + + + + + | Component | Value | Ref Range | Performed | Pathologist | | | | | At | Signature | + + + + + + | VENTRICULAR | 120 | bpm | [facility] | | | RATE | | [...] | + + + + + | [facility] | [address] | [place], [place] | | | CARDIOLOGY | [address] | [address] | | + + + + + X-RAY ABD LTD FEEDING TUBE EVAL PORTABLE (09/09/2017 10:15 PM PDT) + + | Specimen | + + | | + + + + + | Narrative | Performed At | + + + | INDICATION: feeding tube placement TECHNIQUE: Supine portable | [facility] | | view of the [...] | | + +---------+ + + | [facility] | | | [...] - [facility] | [address] | [place], [place] | | | [facility] | [address] | [address] | | | TESTS | | | [...] [facility] | [address] | [place] [address] | | | SERVICES, CORE | PARK [...] | [facility] | [address] | [place] [address] | | | SERVICES, CORE | VILMA [...] | | | LABORATORY | | | [place] | | | SERVICES, | | | [...] LABORATORY | [address] | [place] [address] | | | SERVICES, CORE | PARK [...] | + + + + + | [facility] [employer] | [address] | [place] [address] | | | SERVICES, CORE | VILMA [...] | | | LABORATORY | | | [place] | | | SERVICES, | | | [...] [facility] | [address] | [place] [address] | | | SERVICES, CORE | PARK [...] | [facility] | [address] | [place] [address] | | | SERVICES, CORE | VILMA [...] | + + + + + | [facility] | [address] | [place] [address] | | | SERVICES, CORE | [address] | | | + + + + + X-RAY ABD LTD FEEDING TUBE EVAL (09/08/2017 4:38 AM PDT) + + | Specimen | + + | | + + + + + | Narrative | Performed At | + + + | EXAM: ABD LTD FEEDING TUBE EVAL 09/08/17 04:04:50 COMPARISON: | [facility] | | 09/06/17 FINDINGS: Feeding tube has [...] [facility] | [address] | [place], [place] | | | CARDIOLOGY | [address] | [address] | | + + + + + X-RAY PORTABLE CHEST 1 VIEW (09/07/2017 6:12 AM PDT) + + | Specimen | + + | | + + + + + | Narrative | Performed At | + + + | EXAM: [place] CHEST 1 VIEW HISTORY: Post extubation COMPARISON: [...] Interface - 09/07/2017 10:46 AM PDT EXAM: [place] CHEST 1 | | VIEWHISTORY: Post extubationCOMPARISON: [...] | + + + + + | [facility] | [address] | [place] [address] | | | SERVICES, CORE | PARK [...] | | | LABORATORY | | | [place] | | | SERVICES, | | | [...] | + + + + + | [facility] [employer] | [address] | [place] [address] | | | NATALEE WORTHINGTON | [address]IL[address] [...] [facility] | [address] | [place] [address] | | | ELIN, NATALEE | PARK [...] + | [facility] | [address] | [place], [place] | | | CARDIOLOGY | [address] | [address] | | + + + + + [...] | | | attempt. Midline lot number [id number]; there was positive blood | | | [...] | | | LABORATORY | | | [place] | | | SERVICES, | | | [...] [facility] | [address] | [place] [address] | | | SERVICES, CORE | PARK [...] | + + + + + | [facility] | [address] | [place] [address] | | | SERVICES, CORE | [address] | | | + + + + + X-RAY PORTABLE CHEST 1 VIEW (09/05/2017 5:33 AM PDT) + + | Specimen | + + | | + + + + + | Narrative | Performed At | + + + | EXAM: [place] CHEST 1 VIEW HISTORY: Evaluation after chest [...] Note | + + | Service Account, GiveNext In Interface - 09/05/2017 10:16 AM PDT EXAM: [place] CHEST 1 | | VIEW HISTORY: Evaluation [...] | + + + + + | [facility] | [address] | [place] [address] | | | SERVICES, CORE | VILMA [...] | + + + + + | [facility] | [address] | [place] [address] | | | NATALEE WORTHINGTON | VILMA [...] | | | LABORATORY | | | [place] | | | SERVICES, | | | [...] FOR INCURABLES | [address] | [place] [address] | | | SERVICES, CORE | VILMA [...] | | | LABORATORY | | | [place] | | | SERVICES, | | | [...] the MDRD equation recommended by the | [facility] | | National Kidney [...] | [facility] | [address] | [place] [address] | | | [facility] | [address] | | | + + [...] tomorrow morning. CB Henson Pager / ID: [phone] | | + + + CULTURE, SPUTUM [...] | + + + + + | [facility] | [address] | [place] [address] | | | [place] | | | [...] [facility] | [address] | [place] [address] | | | SERVICES, CORE | VILMA [...] | [facility] | | | GRAVITY | Mojave performed by | | LABORATORY | | [...] | + + + + + | [facility] | [address] | [place] [address] | | | SERVICES, CORE | [address] | | | + + + + + CULTURE, BLOOD BACTI & YEAST [facility] (09/04/2017 1:16 PM PDT) + + [...] | + + + + + | [facility] | [address] | [place] [address] | | | SERVICES, CORE | PARK [...] [facility] | [address] | [place] [address] | | | SERVICES, CORE | VILMA [...] | + + + + + | [facility] | [address] | [place], [place] | | | CARDIOLOGY | [address] | [address] | | + + + + + X-RAY PORTABLE CHEST 1 VIEW (09/04/2017 7:04 AM PDT) + + | Specimen | + + | | + + + + + | Narrative | Performed At | + + + | EXAM: [place] CHEST 1 VIEW HISTORY: Hypoxia. Intubated. | [...] Interface - 09/04/2017 9:49 AM PDT EXAM: [place] CHEST 1 | | VIEW HISTORY: Hypoxia. [...] FOR INCURABLES | [address] | [place] [address] | | | SERVICES, CORE | VILMA [...] [facility] | [address] | [place] [address] | | | SERVICES, CORE | PARK [...] | | | LABORATORY | | | [place] | | | SERVICES, | | | [...] | + + + + + | [facility] | [address] | [place] [address] | | | SERVICES, CORE | [address] | | | + + + + + MAGNESIUM, PLASMA (09/04/2017 12:29 AM PDT) + +-------+ + + + | Component | Value | Ref Range | Performed | Pathologist | | | | | At | Signature | + +-------+ + + + | MAGNESIUM,P | 1.9 | 1.6 - 2.6 mg/dL | [facility] | | | LASMA [...] [facility] | [address] | [place] [address] | | | SERVICES, NATALEE | VILMA [...] [facility] | [address] | [place], [place] | | | GLORIA GENAO [facility] [employer] | [facility] | [address] | | | TESTS | | | [...] [facility] | [address] | [place], [place] | | | [facility] GE[employer] | [address] | [address] | | | TESTS | | | [...] [facility] | [address] | [place], [place] | | | GL[facility]IA GENAO [facility] CARE | [address] | [address] | | | TESTS | | | [...] - [facility] | [address] | [place], [place] | | | [facility] | [address] | [address] | | | TESTS | | | [...] | | + +---------+ + + | [facility] | | | | | [facility] | | | | [...] detected | AIRPORT - | | | [place] | + + + + + + + + | Performing | Address | City/State/Zipcode | Phone Number | | Organization | | | | + + + + + | [facility] | [address] | [place] [address] | | | [facility] | | | | + [...] [facility] | [address] | [place] [address] | | | SERVICES, CORE | VILMA [...] Note | + + | Service Account, GiveNext In Interface - 09/03/2017 9:54 AM PDT [...] | + + + + + | [facility] | [address] | [place] [address] | | | [facility] | | | | + + [...] [facility] | [address] | [place] [address] | | | SERVICES, CORE | VILMA [...] | + + + + + | [facility] | [address] | [place] [address] | | | SERVICES, CORE | VIL[address] [...] | | | LABORATORY | | | [place] | | | SERVICES, | | | [...] [facility] | [address] | [place] [address] | | | NATALEE WORTHINGTON | PARK [...] FOR INCURABLES | [address] | [place] [address] | | | SERVICES, CORE | [address] | | | + + + + + OPERATION RECORD (09/02/2017 6:53 PM PDT) + + | Procedure Note | + + | Fidelina Shields MD - 09/02/2017 6:53 PM PDT Date of Service: 09/02/2017 | | Attending Surgeon: Fidelina Shields MD Mft(s): | | Ajay Garcia MD, resident. Preoperative [...] 09/02/2017 18:15:29DT: 09/02/2017 18:53:52Job #: | | [id number] to federal Medicare and Medicaid regulations I was present for | | the entire procedure.Fidelina Tenorio ProfessorDepartment of SurgeryOffice: | | [phone]: [id number] has been electronically signed by Fidelian Shields MD, | | 09/03/2017 at 9:11 AM. | | | | | |Fidelina Shields MD | |Order Management Specialist | |Department of Surgery | |Office: [phone] | |Pager: [phone] | | | |This has been electronically [...] LABORATORY | [address] | [place] [address] | | | SERVICES, CORE | PARK [...] FOR INCURABLES | [address] | [place] [address] | | | SERVICES, CORE | VILMA [...] + | [facility] | [address] | [place] [address] | | | [place] | | | [...] [facility] | [address] | [place] [address] | | | SERVICES, NATALEE | VILMA [...] | | | LABORATORY | | | [place] | | | SERVICES, | | | [...] (H) | 4 - 11 mmol/L | [facility] | | | GAP(ALB | [...] [facility] | [address] | [place] [address] | | | SERVICES, CORE | VILMA [...] Bedrest Initial surgical | | | contact: [facility] Vic[facility] Garcia, Surgery [phone] Pursuant | | | to federal Medicare and Medicaid regulations I was present for the | | | entire procedure. Fidelina Shields MD Order Management Specialist | | | Department of Surgery Office: [phone] Pager: [phone] This has | | | been electronically [...] [facility] | [address] | [place] [address] | | | SERVICES, CORE | PARK [...] [facility] | [address] | [place] [address] | | | NATALEE WORTHINGTON | [address] | | | + + + + + OPERATION RECORD (09/02/2017 6:51 AM PDT) + ---+ | Procedure Note | + ---+ | Fidelina Shields MD - 09/02/2017 6:51 AM PDT Date of Service: 09/01/2017 | | Attending Surgeon: Fidelina Shields MD Mft(s): Haim Peralta MD. | | Ajay Garcia [...] 09/02/2017 06:17:53DT: 09/02/2017 | | 06:51:37Job #: [id number] to federal Medicare and Medicaid regulations I | | was present for the entire procedure.Fidelina Shields MDAssistant ProfessorDepartment of | | SurgeryOffice: [phone]: [id number] has been electronically signed by Fidelina Snyder | Prabhakar Shields MD, 09/02/2017 at 10:40 AM. | | | | | |Pursuant to federal Medicare and Medicaid regulations I was present for the entire procedur e. | | | | | | | |Fidelina Shields MD | |Order Management Specialist | |Department of Surgery | |Office: [phone] | |Pager: [phone] | | | |This has been electronically [...] [facility] | [address] | [place] [address] | | | SERVICES, CORE | PARK [...] FOR INCURABLES | [address] | [place] [address] | | | SERVICES, CORE | VILMA [...] + + + + | PRODUCT | [id number] | | [facility] | | | UNIT [...] + + + + | EXPIRATION | [id number] | | [facility] | | | DATE [...] + + + + | BLOOD | [id number] | | [facility] | | | PRODUCT [...] | + + + + + | [facility] [employer] | [address] | [place] [address] | | | SERVICES, | [address] [...] FOR INCUR[facility] | [address] | [place] [address] | | | SERVICES, CORE | PARK [...] | | | LABORATORY | | | [place] | | | SERVICES, | | | [...] the MDRD equation recommended by the | [facility] | | National Kidney Disease Education Program. [...] [facility] | [address] | [place] [address] | | | SERVICES, CORE | PARK [...] [facility] | [address] | [place] [address] | | | NATALEE WORTHINGTON | PARK [...] | | | | INFORMATION: | | [place] | | | | QuantiFERON-TB Gold | [...] (http://www.cdc.gov/mmwr | | | | | | /preview/mmwrhtml/wu1382 | | | | | | a1.htm), [...] [facility] | | | | by [email or web address], | | AIRPORT - | | | | | | [place] | | | | [address] | | | | | | [address] [facility] [place] | | | | | | [address] | | | | | | | | | | | | [email or web address] | | | | | | [...] + | [facility] | [address] | [place] [address] | | | [facility] | | | | + [...] [facility] | [address] | [place] [address] | | | SERVICES, CORE | PARK [...] FOR INCUR[facility] | [address] | [place] [address] | | | SERVICES, CORE | [address] [...] Note | + + | Service Account, MATINAS BIOPHARMA Res In Interface - 09/02/2017 8:55 AM [...] At | + + + | EXAM: [place] CHEST 1 VIEW HISTORY: Hypoxemia COMPARISON: 09/01/17 [...] Interface - 09/02/2017 10:34 AM PDT EXAM: [place] CHEST 1 | | VIEW HISTORY: HypoxemiaCOMPARISON: [...] | + + + + + | [facility] | [address] | [place] [address] | | | SERVICES, CORE | PARK [...] [facility] | [address] | [place] [address] | | | SERVICES, CORE | [address] [...] + + + + | PRODUCT | [id number] | | [facility] | | | UNIT [...] + + + + | EXPIRATION | [id number] | | [facility] | | | DATE [...] + + + + | BLOOD | [id number] | | [facility] | | | PRODUCT [...] [facility] | [address] | [place] [address] | | | SERVICES, | [address] [...] [facility] INC[facility] | [address] | [place] [address] | | | SERVICES, CORE | VILMA [...] FOR INCURAB[facility] | [address] | [place] [address] | | | SERVICES, CORE | PARK [...] [facility] | [address] | [place] [address] | | | SERVICES, [facility] | [address] | | | + [...] | | | LABORATORY | | | [place] | | | SERVICES, | | | [...] | [facility] | [address] | [place] [address] | | | SERVICES, CORE | PARK [...] | [facility] | [address] | [place] [address] | | | SERVICES, CORE | [address] [...] FOR INCURABLES | [address] | [place] [address] | | | SERVICES, CORE | PARK [...] micropuncture access set was exchanged for a Tagasauris wire. Under | | | fluoroscopic guidance, a 5 Fr flush catheter was used to evaluate the | | | distal abdominal aorta and pelvic vasculature. A wire and catheter | | | were then used to select the left common and internal iliac arteries | | | from the right NOODLE CATALYST MAKER approach. DSA was performed from the [...] micropuncture access set was exchanged for a Tagasauris wire. Under fluoroscopic guidance, | | a 5 Fr flush catheter was used to evaluate the distal abdominal aorta and pelvic | | vasculature. A wire and catheter were then used to select the left common and internal | | iliac arteries from the right NOODLE CATALYST MAKER approach. DSA was performed from the [...] micropuncture access set was exchanged for a Tagasauris wire. Under fluoroscopic guidance, a 5 Fr flush catheter was used | |to evaluate the distal abdominal aorta and pelvic vasculature. A wire and catheter were th en used to select the left common and internal iliac arteries from the right NOODLE CATALYST MAKER approach. DSA was performed from the [...] + + + | [facility] | [address] | [place], [place] | | | GL[facility]IA GENAO [facility]ARE | [address] | [address] | | | TESTS | | | | + + + + + EXPLORATORY LAPAROTOMY (09/01/2017 12:31 PM PDT) + + + | Narrative | Performed At | + + + | Fidelina Shields MD 09/01/2017 12:42 PM BRIEF OPERATIVE NOTE: | | | Date: 09/01/2017 Author: Fidelina Shields MD | | | Attending Physician: Fidelina Shields MD Mft(s): Haim Peralta | | | , Vicente Garcia MD, [facility] MS3 Prior to the | | [...] case. | | | Fidelina Shields MD Order Management Specialist Division of Trauma, | | | Critical Care and Acute Care Surgery Office: [phone] Pager: | | | [phone] | | + + + ABG-FULL ABL, [...] [facility] | [address] | [place], [place] | | | GL[facility]IA GENAO [facility]ARE | [address] | [address] | | | TESTS | | | [...] | + + + + + | [facility] | [address] | [place] [address] | | | SERVICES, CORE | [address] [...] + + + | [facility] | [address] | [place], [place] | | | GL[facility] GE[facility] [employer] | [address] | [address] | | | TESTS | | | [...] + + + + | PRODUCT | [id number] | | [facility] | | | UNIT [...] + + + + | EXPIRATION | [id number] | | [facility] | | | DATE [...] + + + + | BLOOD | [id number] | | [facility] | | | PRODUCT [...] [facility] | [address] | [place] [address] | | | SERVICES, | [address] [...] + + + + | PRODUCT | [id number] | | [facility] | | | UNIT [...] + + + + | EXPIRATION | [id number] | | [facility] | | | DATE [...] + + + + | BLOOD | [id number] | | [facility] | | | PRODUCT [...] [facility] | [address] | [place] [address] | | | SERVICES, | [address] [...] + + + + | PRODUCT | [id number] | | [facility] | | | UNIT [...] + + + + | EXPIRATION | [id number] | | [facility] | | | DATE [...] + + + + | BLOOD | [id number] | | [facility] | | | PRODUCT [...] LABORATORY | [address] | [place] [address] | | | SERVICES, | [address] [...] + + + + | PRODUCT | [id number] | | [facility] | | | UNIT [...] + + + + | EXPIRATION | [id number] | | [facility] | | | DATE [...] + + + + | BLOOD | [id number] | | [facility] | | | PRODUCT [...] [facility] | [address] | [place] [address] | | | SERVICES, | [address] [...] + + + + | PRODUCT | [id number] | | [facility] | | | UNIT [...] + + + + | EXPIRATION | [id number] | | [facility] | | | DATE [...] + + + + | BLOOD | [id number] | | [facility] | | | PRODUCT [...] LABORATORY | [address] | [place] [address] | | | SERVICES, | [...] + + + + | PRODUCT | [id number] | | [facility] | | | UNIT [...] + + + + | EXPIRATION | [id number] | | [facility] | | | DATE [...] + + + + | BLOOD | [id number] | | [facility] | | | PRODUCT [...] | + + + + + | [facility] | [address] | [place], [place] [address] | | | SERVICES, | [address] [...] + + + + | PRODUCT | [id number] | | [facility] | | | UNIT [...] + + + + | EXPIRATION | [id number] | | [facility] | | | DATE [...] + + + + | BLOOD | [id number] | | [facility] | | | PRODUCT [...] [facility] | [address] | [place] [address] | | | SERVICES, | [address] [...] + + + + | PRODUCT | [id number] | | [facility] | | | UNIT [...] + + + + | EXPIRATION | [id number] | | [facility] | | | DATE [...] + + + + | BLOOD | [id number] | | [facility] | | | PRODUCT [...] [facility] | [address] | [place] [address] | | | SERVICES, | [address] [...] + + + + | PRODUCT | [id number] | | [facility] | | | UNIT [...] + + + + | EXPIRATION | [id number] | | [facility] | | | DATE [...] + + + + | BLOOD | [id number] | | [facility] | | | PRODUCT [...] [facility] | [address] | [place] [address] | | | SERVICES, | [address] [...] + + + + | PRODUCT | [id number] | | [facility] | | | UNIT [...] + + + + | EXPIRATION | [id number] | | [facility] | | | DATE [...] + + + + | BLOOD | [id number] | | [facility] | | | PRODUCT [...] [facility] | [address] | [place] [address] | | | SERVICES, | [address] [...] + + + + | PRODUCT | [id number] | | [facility] | | | UNIT [...] + + + + | EXPIRATION | [id number] | | [facility] | | | DATE [...] + + + + | BLOOD | [id number] | | [facility] | | | PRODUCT [...] [facility] | [address] | [place] [address] | | | SERVICES, | [address] [...] + + + + | PRODUCT | [id number] | | [facility] | | | UNIT [...] + + + + | EXPIRATION | [id number] | | [facility] | | | DATE [...] + + + + | BLOOD | [id number] | | [facility] | | | PRODUCT [...] [facility] | [address] | [place] [address] | | | SERVICES, | [address] [...] + + + + | PRODUCT | [id number] | | [facility] | | | UNIT [...] + + + + | EXPIRATION | [id number] | | [facility] | | | DATE [...] + + + + | BLOOD | [id number] | | [facility] | | | PRODUCT [...] [facility] | [address] | [place] [address] | | | SERVICES, | [address] [...] + + + + | PRODUCT | [id number] | | [facility] | | | UNIT [...] + + + + | EXPIRATION | [id number] | | [facility] | | | DATE [...] + + + + | BLOOD | [id number] | | [facility] | | | PRODUCT [...] [facility] | [address] | [place] [address] | | | SERVICES, | [address] [...] + + + + | PRODUCT | [id number] | | [facility] | | | UNIT [...] + + + + | EXPIRATION | [id number] | | [facility] | | | DATE [...] + + + + | BLOOD | [id number] | | [facility] | | | PRODUCT [...] [facility] | [address] | [place] [address] | | | SERVICES, | [address] [...] + + + + | PRODUCT | [id number] | | [facility] | | | UNIT [...] + + + + | EXPIRATION | [id number] | | [facility] | | | DATE [...] + + + + | BLOOD | [id number] | | [facility] | | | PRODUCT [...] LABORATORY | [address] | [place] [address] | | | SERVICES, | [address] [...] + + + + | PRODUCT | [id number] | | [facility] | | | UNIT [...] + + + + | EXPIRATION | [id number] | | [facility] | | | DATE [...] + + + + | BLOOD | [id number] | | [facility] | | | PRODUCT [...] [facility] | [address] | [place] [address] | | | SERVICES, | [address] [...] + + + + | PRODUCT | [id number] | | [facility] | | | UNIT [...] + + + + | EXPIRATION | [id number] | | [facility] | | | DATE [...] + + + + | BLOOD | [id number] | | [facility] | | | PRODUCT [...] [facility] | [address] | [place] [address] | | | SERVICES, | [address] [...] + + + + | PRODUCT | [id number] | | [facility] | | | UNIT [...] + + + + | EXPIRATION | [id number] | | [facility] | | | DATE [...] + + + + | BLOOD | [id number] | | [facility] | | | PRODUCT [...] [facility] | [address] | [place] [address] | | | SERVICES, | [address] [...] + + + + | PRODUCT | [id number] | | [facility] | | | UNIT [...] + + + + | EXPIRATION | [id number] | | [facility] | | | DATE [...] + + + + | BLOOD | [id number] | | [facility] | | | PRODUCT [...] | + + + + + | [facility] | [address] | [place] [address] | | | SERVICES, | [address] [...] + + + + | PRODUCT | [id number] | | [facility] | | | UNIT [...] + + + + | EXPIRATION | [id number] | | [facility] | | | DATE [...] + + + + | BLOOD | [id number] | | [facility] | | | PRODUCT [...] [facility] | [address] | [place] [address] | | | SERVICES, | [address] [...] + + + + | PRODUCT | [id number] | | [facility] | | | UNIT [...] + + + + | EXPIRATION | [id number] | | [facility] | | | DATE [...] + + + + | BLOOD | [id number] | | [facility] | | | PRODUCT [...] [facility] | [address] | [place] [address] | | | SERVICES, | [address] [...] + + + + | PRODUCT | [id number] | | [facility] | | | UNIT [...] + + + + | EXPIRATION | [id number] | | [facility] | | | DATE [...] + + + + | BLOOD | [id number] | | [facility] | | | PRODUCT [...] [facility] | [address] | [place] [address] | | | SERVICES, | [address] [...] + + + + | PRODUCT | [id number] | | [facility] | | | UNIT [...] + + + + | EXPIRATION | [id number] | | [facility] | | | DATE [...] + + + + | BLOOD | [id number] | | [facility] | | | PRODUCT [...] [facility] | [address] | [place] [address] | | | SERVICES, | [address] [...] + + + + | PRODUCT | [id number] | | [facility] | | | UNIT [...] + + + + | EXPIRATION | [id number] | | [facility] | | | DATE [...] + + + + | BLOOD | [id number] | | [facility] | | | PRODUCT [...] [facility] | [address] | [place] [address] | | | SERVICES, | [address] [...] + + + + | PRODUCT | [id number] | | [facility] | | | UNIT [...] + + + + | EXPIRATION | [id number] | | [facility] | | | DATE [...] + + + + | BLOOD | [id number] | | [facility] | | | PRODUCT [...] [facility] | [address] | [place] [address] | | | SERVICES, | [address] [...] [facility] | [address] | [place] [address] | | | SERVICES, CORE | [address] [...] | | | LABORATORY | | | [place] | | | SERVICES, | | | [...] | + + + + + | [facility] [employer] | [address] | [place] [address] | | | SERVICES, CORE | [address] [...] FOR INCUR[facility] | [address] | [place] [address] | | | SERVICES, CORE | [address] [...] SELENA [facility] | [address] | [place], [place] | | | [place] [facility] | [address] | [address] | | | TESTS | | | | + + + + + X-RAY PORTABLE CHEST 1 VIEW (09/01/2017 9:18 AM PDT) + + | Specimen | + + | | + + + + + | Narrative | Performed At | + + + | EXAM: [place] CHEST 1 VIEW HISTORY: Intubated COMPARISON: 08/31/17 [...] Interface - 09/02/2017 1:23 PM PDT EXAM: [place] CHEST 1 | | VIEW HISTORY: IntubatedCOMPARISON: [...] Note | + + | Service Account, MATINAS BIOPHARMA Res In Interface - 09/01/2017 1:40 PM [...] + + + + | PRODUCT | [id number] | | [facility] | | | UNIT [...] + + + + | EXPIRATION | [id number] | | [facility] | | | DATE [...] + + + + | BLOOD | [id number] | | [facility] | | | PRODUCT [...] [facility] | [address] | [place] [address] | | | SERVICES, | [address] [...] + + + + | PRODUCT | [id number] | | [facility] | | | UNIT [...] + + + + | EXPIRATION | [id number] | | [facility] | | | DATE [...] + + + + | BLOOD | [id number] | | [facility] | | | PRODUCT [...] [facility] | [address] | [place] [address] | | | SERVICES, | [address] [...] + + + + | PRODUCT | [id number] | | [facility] | | | UNIT [...] + + + + | EXPIRATION | [id number] | | [facility] | | | DATE [...] + + + + | BLOOD | [id number] | | [facility] | | | PRODUCT [...] [facility] | [address] | [place] [address] | | | SERVICES, | [address] [...] + + + + | PRODUCT | [id number] | | [facility] | | | UNIT [...] + + + + | EXPIRATION | [id number] | | [facility] | | | DATE [...] + + + + | BLOOD | [id number] | | [facility] | | | PRODUCT [...] [facility] | [address] | [place] [address] | | | SERVICES, | [address] [...] + + + + | PRODUCT | [id number] | | [facility] | | | UNIT [...] + + + + | EXPIRATION | [id number] | | [facility] | | | DATE [...] + + + + | BLOOD | [id number] | | [facility] | | | PRODUCT [...] [facility] | [address] | [place] [address] | | | SERVICES, | [address] [...] + + + + | PRODUCT | [id number] | | [facility] | | | UNIT [...] + + + + | EXPIRATION | [id number] | | [facility] | | | DATE [...] + + + + | BLOOD | [id number] | | [facility] | | | PRODUCT [...] [facility] | [address] | [place] [address] | | | SERVICES, | [address] [...] + + + + | PRODUCT | [id number] | | [facility] | | | UNIT [...] + + + + | EXPIRATION | [id number] | | [facility] | | | DATE [...] + + + + | BLOOD | [id number] | | [facility] | | | PRODUCT [...] [facility] | [address] | [place] [address] | | | SERVICES, | [address] [...] + + + + | PRODUCT | [id number] | | [facility] | | | UNIT [...] + + + + | EXPIRATION | [id number] | | [facility] | | | DATE [...] + + + + | BLOOD | [id number] | | [facility] | | | PRODUCT [...] | + + + + + | [facility] | [address] | [place] [address] | | | SERVICES, | [address] [...] Note | + + | Service Account, MATINAS BIOPHARMA Res In Interface - 09/01/2017 9:01 AM [...] + + + + | PRODUCT | [id number] | | [facility] | | | UNIT [...] + + + + | EXPIRATION | [id number] | | [facility] | | | DATE [...] + + + + | BLOOD | [id number] | | [facility] | | | PRODUCT [...] [facility] | [address] | [place] [address] | | | SERVICES, | [address] [...] | + + + + + | [facility] | [address] | [place] [address] | | | NATALEE WORTHINGTON | [address] [...] + + | [facility] | [address] | [place] [address] | | | SERVICES, CORE | [address] | | | + + + + + MRI SPINE CERVICAL/THORACIC WO CONTRAST (09/01/2017 3:53 AM PDT) + + | Specimen | + + | | + + + + + | Narrative | Performed At | + + + | EXAM: MRI cervical and thoracic spine without contrast HISTORY: | [facility] | | Trauma, known vertebral fractures. COMPARISON: [...] Discussed with | | | trauma ICU record label internship by Dr. Yang at 4:38 AM. [...] interspinous ligament is injured.Discussed with trauma ICU record label internship | | by Dr. Yang at 4:38 AM.I have personally reviewed the images and, if necessary, | | edited the report. I agree with the report as now presented. | |3. Extensive soft tissue edema extending into the cervical and upper thoracic interspinous space, suggestive of interspinous ligament is injured. | | | |Discussed with trauma ICU record label internship by Dr. Yang at 4:38 AM. [...] | | | LABORATORY | | | [place] | | | SERVICES, | | | [...] | + + + + + | [facility] | [address] | [place] [address] | | | SERVICES, CORE | [address] [...] [facility] | [address] | [place] [address] | | | SERVICES, CORE | [address] [...] [facility] | [address] | [place] [address] | | | SERVICES, CORE | [address] [...] | [facility] | [address] | [place] [address] | | | SERVICES, [facility] | [address] | | | + [...] | ventricles. Discussed with the trauma ICU record label internship at 12:12 AM by | | [...] ventricles.Discussed with | | the trauma ICU record label internship at 12:[address] Yang.I [...] | | |Discussed with the trauma ICU record label internship at 12:[address] Yang. [...] [facility] | [address] | [place], [place] | | | GLORIA GENAO OF [facility] | [address] | [address] | | | TESTS | | | [...] [facility] | [address] | [place] [address] | | | SERVICES, CORE | [address] [...] [facility] | [address] | [place] [address] | | | NATALEE WORTHINGTON | [address] [...] | | + +---------+ + + | [facility] | | | [...] | + + + + + | [facility] | [address] | [place] [address] | | | SERVICES, [facility] | [address] | | | + + + + + X-RAY PORTABLE CHEST 1 VIEW (08/31/2017 7:07 PM PDT) + + | Specimen | + + | | + + + + + | Narrative | Performed At | + + + | STUDY: [place] CHEST 1 VIEW HISTORY: Trauma COMPARISON: CT CAP | [facility] | | 08/31/2017 FINDINGS: Endotracheal tube with [...] Interface - 09/01/2017 1:44 PM PDT STUDY: [place] CHEST 1 | | VIEWHISTORY: TraumaCOMPARISON: CT [...] [facility] | [address] | [place] [address] | | | SERVICES, CORE | [address] [...] Note | + + | Service Account, [employer] Res In Interface - 08/31/2017 8:22 PM [...] rib, nondisplaced-Left | | 1st rib fracture, dbdqfrsswmhs-Jzx-iflaoynvw left lateral 8th rib fracture-T12 fracture | [...] Note | + + | Service Account, MATINAS BIOPHARMA Res In Interface - 08/31/2017 8:10 PM [...] | + + + + + | [facility] | [address] | [place] [address] | | | SERVICES, | [address] [...] [facility] | [address] | [place] [address] | | | SERVICES, | [address] [...] [facility] | [address] | [place] [address] | | | SERVICES, | [address] [...] [facility] | [address] | [place], [place] | | | GLORIA GENAO OF GM | [facility] | [address] | | | TESTS | | | [...] + + + | SELE[facility] | [address] | [place], [place] | | | [facility]IA GE[facility] OF [facility] | [address] | [address] | | | TESTS | | | [...] [facility] | [address] | [place], [place] | | | GLORIA GENAO OF CARE | [facility] | [address] | | | TESTS | | | [...] - [facility] | [address] | [place], [place] | | | [place] [facility] | [facility] | [address] | | | TESTS | | | [...] + + + + | PRODUCT | [id number] | | [facility] | | | UNIT [...] + + + + | EXPIRATION | [id number] | | [facility] | | | DATE [...] + + + + | BLOOD | [id number] | | [facility] | | | PRODUCT [...] [facility] | [address] | [place] [address] | | | SERVICES, | [address] [...] + + + + | PRODUCT | [id number] | | [facility] | | | UNIT [...] + + + + | EXPIRATION | [id number] | | [facility] | | | DATE [...] + + + + | BLOOD | [id number] | | [facility] | | | PRODUCT [...] LABORATORY | [address] | [place] [address] | | | SERVICES, | [address] [...] + + + + | PRODUCT | [id number] | | [facility] | | | UNIT [...] + + + + | EXPIRATION | [id number] | | [facility] | | | DATE [...] + + + + | BLOOD | [id number] | | [facility] | | | PRODUCT [...] | + + + + + | [facility] | [address] | [place] [address] | | | SERVICES, | [address] [...] + + + + | PRODUCT | [id number] | | [facility] | | | UNIT [...] + + + + | EXPIRATION | [id number] | | [facility] | | | DATE [...] + + + + | BLOOD | [id number] | | [facility] | | | PRODUCT [...] [facility] | [address] | [place] [address] | | | SERVICES, | [address] [...] + + + + | PRODUCT | [id number] | | [facility] | | | UNIT [...] + + + + | EXPIRATION | [id number] | | [facility] | | | DATE [...] + + + + | BLOOD | [id number] | | [facility] | | | PRODUCT [...] [facility] | [address] | [place] [address] | | | SERVICES, | [address] [...] + + + + | PRODUCT | [id number] | | [facility] | | | UNIT [...] + + + + | EXPIRATION | [id number] | | [facility] | | | DATE [...] + + + + | BLOOD | [id number] | | [facility] | | | PRODUCT [...] | [facility] | [address] | [place] [address] | | | SERVICES, | [address] [...] + + + + | PRODUCT | [id number] | | [facility] | | | UNIT [...] + + + + | EXPIRATION | [id number] | | [facility] | | | DATE [...] + + + + | BLOOD | [id number] | | [facility] | | | PRODUCT [...] [facility] | [address] | [place] [address] | | | SERVICES, | [address] [...] + + + + | PRODUCT | [id number] | | [facility] | | | UNIT [...] + + + + | EXPIRATION | [id number] | | [facility] | | | DATE [...] + + + + | BLOOD | [id number] | | [facility] | | | PRODUCT [...] [facility] | [address] | [place] [address] | | | SERVICES, | [address] [...] [facility] | [address] | [place] [address] | | | SERVICES, CORE | [address] [...] | | | LABORATORY | | | [place] | | | SERVICES, | | | [...] [facility] | [address] | [place] [address] | | | SERVICES, CORE | [address] [...] | + + + + + | [facility] | [address] | [place] [address] | | | NATALEE WORTHINGTON | [address] [...] [facility] | [address] | [place] [address] | | | SERVICES, CORE | [address] [...] | + + + + + | [facility] | [address] | [place] [address] | | | SERVICES, CORE | [address] [...] [facility] | [address] | [place] [address] | | | ELIN, NATALEE | [address] [...]
--- OUTSIDE RECORDS SUMMARY | ~2019-04-04 | XMS | Encounter Summary ---
Demographics + + + | Address | [address] | | | [place] [address] | + + + | Home Phone [...] Author | [facility] [employer] [facility] | + + + | Organization | [facility] [employer] [facility] [...] Team Providers + +------+ + | Care Benefits Processor Name | Role | Phone | [...] CENTER | | | | | | [address] | | | | | | [place] Mailcode: | | | | | | [address] [facility] | | | | | | [place], [place] | | | | | | [address] | | | | | | [phone] | | | +--------+ + + + [...]
--- OUTSIDE RECORDS SUMMARY | ~2019-04-04 | XMS | Encounter Summary ---
Demographics + + + | Address | [address] | | | [place] [address] | + + + | Home Phone [...] | Author | [facility] [employer] [facility] | + + + | Organization | [facility] [employer] [facility] | + [...] Team Providers + +------+ + | Care Pocket Machine Operator Name | Role | Phone [...] HOSPITAL | | | | | | [address] | | | | | | [place] Mailcode: | | | | | | [address] [facility] | | | | | | [place], [place] | | | | | | [address] | | | | | | [phone] | | | +--------+ + + + [...]
--- OUTSIDE RECORDS SUMMARY | ~2019-04-04 | XMS | Encounter Summary ---
Demographics + + + | Address | [address] | | | [place] [address] | + + + | Home Phone [...] + | Author | [facility] [employer] [facility] | + + + | Organization | [facility] [employer] [facility] | [...] Team Providers + +------+ + | Care Sas Administrator Name | Role | Phone | [...] | | | | | Procedures | [place], [place] | [place] | | | | | REQUEST TO | [address] | [address] | | | | | SURGERY | Phone: | Phone: | | | | | SEAM CLOSER | [phone] | [phone] | | | | | AL REPLACE | Fax: | Fax: | | | | | SKULL | [phone] | [phone] | | | | | PLATE/FLAP | | | | | | | AL REPAIR | | | | | | | SKULL | | | | | | | DEFECT,UP TO | | | | | | | 5CM AL | | | | | | | REPAIR SKULL | | | | | | | DEFECT,>5CM | | | | | | | AL | | | | | | | [...] + + + + | 10/31/ | Bag Sewer | [facility] | Magdiel Stock MD | Skull defect | | 2018 | | [facility] [address] | [address] | (Primary Dx) | | | | Ave Mailcode: | [place], | | | | | [facility] | [place] [address] | | | | | and [place], | [phone] | | | | | [address] | | | | | | [place], [place] | | | | | | [address] | | | | | | [phone] | | | +--------+ + + + [...]
--- OUTSIDE RECORDS SUMMARY | ~2019-04-04 | XMS | Encounter Summary ---
Demographics + + + | Address | [address] | | | [place] [address] | + + + | Home Phone [...] + + | Author | [facility] [employer] [facility] | + + + | Organization | [facility] [facility] | + + + | Address | Unknown | + + + | Phone | Unavailable | + + + Support + + +---------+ + | Name | Relationship | Address | Phone | + + +---------+ + | Kaylie Baig | ECON | Unknown | | + + +---------+ + Care Team Providers + +------+ + | Care Prototype Engineer Name | Role | Phone | [...] Pharmacy | | | | | | [address] | | | | | | [place], | | | | | | [place] [address] | | | | | | [phone] | | | +--------+ + + + [...]
--- OUTSIDE RECORDS SUMMARY | ~2019-04-04 | XMS | Encounter Summary ---
Demographics + + + | Address | [address] | | | [place] [address] | + + + | Home Phone | | + + + | Preferred Language | Unknown | + + + | Marital Status | Single | + + + | Zoroastrian Affiliation | PEN | + + + | Race | or | + + + | Ethnic Group | Not or | + + + Author + + + | Author | [facility] | + + + | Organization | [facility] [employer] [facility] | + + + | Address | Unknown | + + + | Phone | Unavailable | + + + Support + + +---------+ + | Name | Relationship | Address | Phone | + + +---------+ + | Kaylie Baig | ECON | Unknown | | + + +---------+ + Care Team Providers + +------+ + | Care Roustabout Head Name | Role | Phone | + [...] | | | 2018 | Event | [facility] | MD [address] | | | | | Admitting Desk | [address] | | | | | Located on the 9 | [place], [place] | | | | | floor [address] [facility] | [address] | | | | | [facility] | [phone] | | | | | [place], [place] | | | | | | [address] | Mariann Victor CRNA | | | | | | [address] | | | | | | [facility] | | | | | | [place], [place] | | | | | | [address] | | | | | | [phone] | | | | | | | [...] | | | | Lumen | Yes; [id number]; 11/09/17; 1154; | | | | | [...]
--- OUTSIDE RECORDS SUMMARY | ~2019-04-04 | XMS | Encounter Summary ---
Demographics + + + | Address | [address] | | | [place] [address] | + + + | Home Phone [...] | Author | [facility] [employer] [facility] | + + + | Organization | [facility] [employer] [facility] | [...] Team Providers + +------+ + | Care Manufacturing Mechanic Name | Role | Phone | [...] | | | 2018 | Event | [facility] | MD [address] | | | | | Admitting Desk | [address] | | | | | Located on the [address] | [place], [place] | | | | | floor [address] | [address] | | | | | [address] | [phone] | | | | | [place], [place] | | | | | | [address] | Jennifer Henderson CRNA | | | | | | [address] | | | | | | [facility] | | | | | | [place] [address] | | | | | | [phone] | | | | | | | [...] centrally accessed); | | | | | [id number]; 10/22/17; 1542; | | | | | [...] 1733 by | | g Tube | ([facility] low profile g-tube 18 fr | Katrin [...] by | 10/12/171731 by | | | ([place] pass 19fr channel drain); | Valeria Seth RN [...]
--- OUTSIDE RECORDS SUMMARY | ~2019-04-04 | XMS | Encounter Summary ---
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 th e patient today with KESHAWN Martin, and agree with the assessement and plan a s outlined in her note. Will consider changing to bolus TF. Plan Gabriel-oconnor tube next week. Chaz Munoz MD, FACS Retail Personal Banker, Trauma, Critical Care and Acute Care Surgery [...] p atient unable to come out fo HAND PACKER for now Resolved or chronic issues/Plan: #Previous [...] issues, including restraints. Venita Pruitt PA-[place] [phone] [facility] [address] [place] [address] Associated attestation - Em Cunningham MD - 10/17/2017 10:13 AM PDTI was present and rou nded with the Advanced Practice Provider today . I interviewed and examined the patient. I reviewed the history, as documented today. I agree with the ASHLEY assessment and plan. TBI has remained stable. On lovenox. Will continue haldol per psych.. EM CUNNINGHAM MD [facility] [address] [place] [address] Venita Pruitt PA-C - 10/05/2017 8:38 AM [...] p atient unable to come out fo HAND PACKER for now Resolved or chronic issues/Plan: #Previous [...] by patient, but wound remains duke n/dry/intact. [place] removed 09/17. #Left hemothorax Chest tube placed [...] issues, including restraints. Venita Pruitt PA-C [place] [phone] [facility] [address] [place] [address] Associated attestation - Shlomo Rosenthal MD - 10/06/2017 7:28 AM PDTFormatting of this note m ight be different from the original. I saw and examined Berlin Temple ([id number]) with the TRAUMA team on 10/05/2017. I [...] and incen tive spirometry for pulmonary toliet. estimation manager for disposition planning and placement. Shlomo Rosenthal MD Research Manufacturing Operator Division of Trauma and Critical Care [facility], Venita Maciel PA-C - 10/04/2017 [...] (baseline from previous TBI ) Neck: in Colts Neck collar Respiratory: CTA b.l CV: RRR GI: [...] p atient unable to come out fo HAND PACKER for now Resolved or chronic issues/Plan: #Previous [...] issues, including restraints. Venita Pruitt PA-C [place] [phone] [place] [phone] [facility] [address] [place] [facility] [phone] Associated attestation - Fidelina Shields MD - 10/04/2017 10:27 PM PDTAttending: I saw and examined Berlin Tmeple with Venita Pruitt PA-C on morning rounds [...] and only enteral access. Fidelina Shields MD Retail Personal Banker Division of Trauma, Critical Care and Acute Care Surgery Office: [phone] Pager: [phone] Leonor TorresCB - 10/03/2017 3:13 PM PDT [...] (baseline from previous TBI ) Neck: in Colts Neck collar Respiratory: CTA bilaterally, no distress CV: [...] p atient unable to come out fo HAND PACKER for now Resolved or chronic issues/Plan: Previous [...] by patient, but wound remains duke n/dry/intact. [place] removed 09/17. #Left hemothorax Chest tube placed [...] PDTAttending: I saw and examined Berlin Temple ([id number]) with CB Hair on morning rounds 10/03 and agree with the assessment and plan as outlined in this note and participated in the planning of care. Mental status is slightly better, remains sedated but he is interactive and at least somewh at oriented. Enteral nutrition advancing and, as approaches goal, will turn TPN off. Place ment remains a significant issue. Fidelina Shields MD Retail Personal Banker Division of Trauma, Critical Care and Acute Care Surgery Office: [phone] Pager: [phone] July Banegas PA-C - 10/03/2017 12:58 PM [...] the C-collar when in bed then the HAND PACKER when out of bed until 12/01/17. JULY BANEGAS PA-C [facility] [address] [place] [address] Associated attestation - Magdiel Stock MD - 10/04/2017 6:02 PM PDTI performed a history a nd physical examination of the patient and discussed the management with the advanced practi ce provider, July Banegas PA-C. I reviewed the advanced practice provider's note and agree w ith the plan of care as documented. Continue cervical collar and HAND PACKER for 3 months to ensure fracture healing and prevent development of post-fracture cervical kyphosis. Magdiel Stock MD Retail Personal Banker Department of Neurological Surgery [facility] Sherine Sarmiento AGACNP - 10/02/2017 12:54 [...] (baseline from previous TBI ) Neck: in Colts Neck collar Respiratory: CTA bilaterally, lungs symmetrical, equal chest wall rise, no retractions CV: RRR GI: non tender, soft, active BS, last BM 09/30 : Patient voiding without difficulty Extremities: no peripheral edema, wiggles toes and toes pink and well perfused Musculoskeletal: 5/5 vp analysis strength on right, 3/5 vp analysis strength on left FEN: on TPN, transitioning [...] AMS & delirium - numerous evaluations by PAPER STRIPPER with trials of PO - now s/p [...] . - C-collar at all times, use HAND PACKER when OOB - Follow-up with Neurosurgery on [...] will decrease [place]g [phone] Associated attestation - Fidelina Shields MD - 10/02/2017 4:40 PM PDTAttending: I saw and examined Berlin Temple ([id number]) with KESHAWN Alexander on mornin g rounds [...] back to midline position. May need long wall shear operator enteral access , but is ~4 weeks s/p damage control laparotomy and risk is higher now than it will be in 7- 14 days and if swallow is not improving then will place prior to DC Fidelina Shields MD Retail Personal Banker Division of Trauma, Critical Care and Acute Care Surgery Office: [phone] Pager: [phone] Sherine Sarmiento AGACNP - 10/01/2017 7:27 AM [...] (baseline from previous TBI ) Neck: in Colts Neck collar Respiratory: CTA bilaterally, lungs symmetrical, equal chest wall rise, no retractions CV: RRR GI: non tender, soft, active BS, last BM 09/30 : Patient voiding without difficulty Extremities: no peripheral edema, wiggles toes and toes pink and well perfused Musculoskeletal: 5/ vp analysis strength on right, 3/5 vp analysis strength on left FEN: on TPN Heme/ID: [...] AMS & delirium - numerous evaluations by PAPER STRIPPER with trials of PO - now s/p modified barium swallow x2 which indicates aspiration - continue NPO - PAPER STRIPPER reports that patient working on tongue strength [...] . - C-collar at all times, use HAND PACKER when OOB - Follow-up with Neurosurgery on [...] via phone with trauma team and sister. Sheirne Sarmiento, [facility] [place] [phone] Associated attestation - Fidelina Shields MD - 10/02/2017 4:40 PM PDTAttending: I saw and examined Berlin Temple ([id number]) with KESHAWN Alexander on mornin g rounds 10/01/17 and agree with the assessment and plan as outlined in this note and partic ipated in the planning of care. Will trial DHT placement today, CT head unchanged. Suspect somnolence is medication side ef fect and, if persistent, may need to wean antipsychotic doses. Fidelina Shields MD Retail Personal Banker Division of Trauma, Critical Care and Acute Care Surgery Office: [phone] Pager: [phone] Christian Kelley PA-C - 09/30/2017 12:21 PM [...] Fixed and dilated on left Neck: in Colts Neck collar Respiratory: CTA bilaterally, lungs symmetrical, equal chest wall rise, no retractions CV: RRR GI: non tender, soft, active BS, last BM 09/30 : Patient voiding without difficulty Extremities: no peripheral edema, wiggles toes and toes pink and well perfused Musculoskeletal: 5/5 vp analysis strength on right, 3/5 vp analysis strength on left FEN: on TPN Heme/ID: [...] AMS & delirium - numerous evaluations by PAPER STRIPPER with trials of PO - now s/p modified barium swallow x2 which indicates aspiration - continue NPO - PAPER STRIPPER reports that patient working on tongue strength [...] . - C-collar at all times, use HAND PACKER when OOB - Follow-up with Neurosurgery on [...] PDTAttending: I saw and examined Berlin Temple ([id number]) with Christian Kelley PA-C on morning rounds 09/30 and agree with the assessment and plan as outlined in this note and participated in the planning of care. Mentally slower this morning, but non-focal. Received haldol overnight for sleep. Repeat head CT was unchanged so suspect etiology of slowed responsiveness is the antipsychotic dose . PAPER STRIPPER believes that, once collar off, may be able to take PO more effectively and thus will hold off on surgical feeding access. TPN is a temporary solution and if patient remains kaye nable will trial DHT tomorrow. Working with psychiatry for medication recommendations. Fidelina Shields MD Retail Personal Banker Division of Trauma, Critical Care and Acute Care Surgery Office: [phone] Pager: [phone] July Banegas PA-C - 09/30/2017 8:23 AM PDTBrief Neurosurgery Wound Check: Wound is dry, without erythema, not fluctuant. No acute swelling. Nylon in place. Will plan to follow peripherally for wound checks and remove nylons on 10/09. JULY BANEGAS PA-C [facility] [address] [place] [address] hristian Kelley PA-C - 09/29/2017 7:15 AM [...] and EOMs intact to exam Neck: in Colts Neck collar Respiratory: CTA bilaterally, lungs symmetrical, equal [...] AMS & delirium - numerous evaluations by PAPER STRIPPER with trials of PO - now s/p [...] . - C-collar at all times, use HAND PACKER when OOB - Follow-up with Neurosurgery on [...] PDTAttending: I saw and examined Berlin Temple ([id number]) with Christian Kelley PA-C on morning rounds 09/29 and agree with the assessment and plan as outlined in this note and participated in the planning of care. Late entry for 09/29/17. Persistent alterations in conscious and dysphagia. Hopefully with ongoing speech therapy a nd when clear to take c-collar off, will improve ability to take PO. While TPN is not an opt imal residential strategy, would prefer not to place surgical feeding tube if possible given r elatively recent damage control laparotomy and high risk of Mr. Temple pulling it out. Have tried DHT several times and it seems to worsen delirium and he pulls it out frequently. Tit ration of haldol in conjunction with psychiatry. Fidelina Shields MD Retail Personal Banker Division of Trauma, Critical Care and Acute Care Surgery Office: [phone] Pager: [phone] Christian Kelley PA-C - 09/28/2017 1:01 PM [...] he said, who, ariel? And then the ADOBE FLEX DEVELOPER helped him make a call to [...] and EOMs intact to exam Neck: in Colts Neck collar Respiratory: CTA bilaterally, lungs symmetrical, equal [...] very agitated today. - EKG today with [place] QTc calculated to be 428 - optimize [...] AMS & delirium - numerous evaluations by PAPER STRIPPER with trials of PO - now s/p [...] . - C-collar at all times, use HAND PACKER when OOB - Follow-up with Neurosurgery on [...] to communicate more toyoselin Munoz MD, FACS Retail Personal Banker, Trauma, Critical Care and Acute Care Surgery Chaz Munoz MD - 09/28/2017 10:13 AM PDTTrauma Staff Seen and examined this AM with team. I have concerns abotu behaviour, as he is consistently threatening RN and ancillary staff, even attempting swings. Behavior seems worse at night. I would favor increasing night time Haldol dose, and following EKGs. Chaz Munoz MD, FACS Retail Personal Banker, Trauma, Critical Care and Acute Care Surgery [...] Dallin Bourgeois MD Neurosurgery PGY1 | Pager #[phone] Christian Begum PA-C - 09/27/2017 7:31 AM [...] able to have a linear conversation briefly PAPER STRIPPER requesting repeat barium swallow Current meds: I [...] incision healing , suture c/d/I Neck: in HAND PACKER Respiratory: unlabored on room air, lungs symmetrical, [...] AMS & delirium - numerous evaluations by PAPER STRIPPER with trials of PO - now s/p [...] . - C-collar at all times, use HAND PACKER when OOB - Follow-up with Neurosurgery on [...] TPN for now. EM CUNNINGHAM MD [facility] [address] [place] [address] Christian Kelley PA-C - 09/26/2017 6:48 AM [...] posterior scalp crani incision c/d/I Neck: in Colts Neck collar Respiratory: unlabored on room air CV: [...] AMS & delirium - numerous evaluations by PAPER STRIPPER with trials of PO - now s/p [...] . - C-collar at all times, use HAND PACKER when OOB - Follow-up with Neurosurgery on [...] NPO and TPN. EM CUNNINGHAM MD [facility] [address] [place] [address] Christian Kelley PA-C - 09/25/2017 7:49 AM [...] HEENT: EOMs intact to exam Neck: in HAND PACKER brace Respiratory: unlabored on room air CV: [...] AMS & delirium - numerous evaluations by PAPER STRIPPER with trials of PO - now s/p [...] . - C-collar at all times, use HAND PACKER when OOB - Follow-up with Neurosurgery on 10/21 with repeat X-rays #Blunt abdominal trauma #Splenic laceration S/p laparotomies x2. Fascia closed 09/02 Wound vac removed by patient, but wound remains duke n/dry/intact. [place] removed 09/17. #Left hemothorax Chest tube placed [...] wnl. Continue TPN. EM E MARJORIE, MD [facility] [address] [place] [address] Christian Kelley PA-C - 09/24/2017 11:07 AM [...] with agitation Having difficulty swallowing again - PAPER STRIPPER to re-eval and obtain barium swallow Current [...] HEENT: EOMs intact to exam Neck: in HAND PACKER brace Respiratory: CTA bilaterally, lungs symmetrical, equal chest wall rise, no retractions CV: RRR GI: non distended, last BM 09/23 : good urine output Extremities: SCD's in place, no peripheral edema, wiggles toes and toes pink and well perfu sed Musculoskeletal: 5/5 strength in bilateral vp analysis (but with slightly weaker on left) , [...] seroquel dose QHS for insomnia/restlessness at [facility] - Haldol 5mg q12hr prn for severe [...] likely 2/2 AMS & delirium - Failed PAPER STRIPPER eval 09/19 & 09/20, made NPO & dobhoff reinserted 09/21 but pulled overnight - Per PAPER STRIPPER on 09/21, ok for therapeutic pureed with [...] . - C-collar at all times, use HAND PACKER when OOB - Follow-up with Neurosurgery on 10/21 with repeat X-rays #Blunt abdominal trauma #Splenic laceration S/p laparotomies x2. Fascia closed 09/02 Wound vac removed by patient, but wound remains duke n/dry/intact. [place] removed 09/17. #Left hemothorax Chest tube placed [...] abx for dehiscence. EM CUNNINGHAM MD [facility] [address] [place] [address] Ginette Campos PA-C - 09/24/2017 9:31 AM [...] 4 extremities Unable to assess drift. Motor: Stroke Program Coordinator Bicep Tricep Delt R 5 5 [...] questions or concerns. Ginette Campos PA-C [facility] [address] [place] [phone] ELLGabriel Atkins AGACNP - 09/23/2017 6:32 AM [...] hiscence, draining minimal serosang fluid Neck: in HAND PACKER brace Respiratory: unlabored on room air CV: [...] seroquel dose QHS for insomnia/restlessness at [facility] - Repeat ECG 09/22 with QTc WNL. [...] likely 2/2 AMS & delirium - Failed PAPER STRIPPER eval 09/19 & 09/20, made NPO & dobhoff reinserted 09/21 but pulled overnight - Per PAPER STRIPPER on 09/21, ok for therapeutic pureed with [...] . - C-collar at all times, use HAND PACKER when OOB - Follow-up with Neurosurgery on [...] ium improves Sherine Sarmiento, [facility] [place] [phone] Dallin Deshpande MD - 09/22/2017 8:03 AM [...] Dallin Bourgeois MD Neurosurgery PGY1 | Pager #[phone] herine Atkins, AGACN - 09/22/2017 6:52 AM [...] 24hr events: - Therapeutic purees initiated by PAPER STRIPPER yesterday - Trickle feeds via Dobbhoff, pt pulled Dobbhoff yesterday evening- not replaced - DYEING MACHINE BACK TENDER called around 2130 for new left facial [...] sluggish. Slight left facial droop Neck: in Colts Neck collar Respiratory: unlabored on room air CV: [...] seroquel dose QHS for insomnia/restlessness at [facility]- - Repeat ECG 09/22 with Q Tc WNL. - Haldol 5mg q12hr prn for severe agitation #Substance abuse, concern for Alcohol withdrawal - CIWA discontinued 09/08, not scoring. - Thiamine & folate started 09/21 #Dysphagia, risk for aspiration #Protein calorie malnutirtion - likely 2/2 AMS & delirium - Failed PAPER STRIPPER eval 09/19 & 09/20, made NPO & dobhoff reinserted 09/21 but pulled overnight - Per PAPER STRIPPER on 09/21, ok for therapeutic pureed with [...] . - C-collar at all times, use HAND PACKER when OOB - Follow-up with Neurosurgery on 10/21 with repeat X-rays #Blunt abdominal trauma #Splenic laceration S/p laparotomies x2. Fascia closed 09/02 Wound vac removed by patient, but wound remains duke n/dry/intact. [place] removed 09/17. #Left hemothorax Chest tube placed [...] delirium improves Sherine Sarmiento, [facility] [place]g [phone] Associated attestation - Shiva Nieto MD,MPH - [...] Critical Care & Acute Care Surgery [facility] [phone] Sami Black - 09/21/2017 10:25 PM PDTBrief [...] in the morning. Plan: -neuro checks; page [phone] for any decline in neurological examination -pain control -Hard C collar at all times and place HAND PACKER prior to mobilizing OOB. Anticipated duration of Collar/HAND PACKER is 12 weeks -repeat CT head for any new decline in neurological exam and page [phone] -NPO at midnight tonight -please hold tonight's planned dose of Lovenox -further recommendations in the morning Sami Black MD, PhD PGY-3 Resident Neurosurgery [id number] signed by Sami Black at 09/21/2017 10:50 [...] Provena placem ent 24hr events: - Failed PAPER STRIPPER eval again yest morning, continued NPO - [...] reactive. Dobbhoff tube in place Neck: in Colts Neck collar Respiratory: unlabored on room air CV: [...] likely 2/2 AMS & delirium - Failed PAPER STRIPPER eval 09/19 & 09/20, made NPO & dobhoff reinserted yesterday - Trickle feeds started this am at 20ml/hr, increase very slowly by 10ml every 12 hrs to go al of 75 due to hx of mesenteric hematomas and previous inability to tolerate TF - Per PAPER STRIPPER today, ok for therapeutic pureed with nectar [...] . - C-collar at all times, use HAND PACKER when OOB - Follow-up with Neurosurgery on 10/21 with repeat X-rays #Blunt abdominal trauma #Splenic laceration S/p laparotomies x2. Fascia closed 09/02 Wound vac removed by patient, but wound remains duke n/dry/intact. [place] removed 09/17. #Left hemothorax Chest tube placed [...] & delirium [place] [phone] Associated attestation - Fidelina Shields MD - 09/21/2017 9:36 PM PDTAttending: I saw and examined Berlin Temple ([id number]) with KESHAWN Alexander on mornin g rounds [...] enough to re-trial PO. Fidelina Shields MD [employer] Personal [employer] Division of Trauma, Critical Care and Acute Care Surgery Office: [phone] Pager: [phone] Sherine Sarmiento, AGACNP - 09/20/2017 7:41 AM [...] haldol given yesterday afternoon for agitation - PAPER STRIPPER paged to re-eval in afternoon after concern for aspiration, made NPO by PAPER STRIPPER - DARNELL SOLANO Current meds: I have [...] right pupil 3 and reactive Neck: in Colts Neck collar Respiratory: unlabored on room air CV: [...] thick/pureed d iet. Made NPO yesterday by PAPER STRIPPER after concern for aspiration. This is likely 2/2 waxing & wan ing delirium & AMS - PAPER STRIPPER re-eval today recommend continue NPO d/t overt clinical signs of aspiration - Place Dobbhoff tube and restart feeds, slowly progress to goal - Stop TPN when tolerating tube feeds - PAPER STRIPPER will follow closely, as his AMS improves [...] . - C-collar at all times, use HAND PACKER when OOB - Follow-up with Neurosurgery on 10/21 with repeat X-rays #Blunt abdominal trauma #Splenic laceration S/p laparotomies x2. Fascia closed 09/02 Wound vac removed by patient, but wound remains duke n/dry/intact. [place] removed 09/17. #Left hemothorax Chest tube placed [...] i mproves Sherine Sarmiento, [facility] Pg [phone] Associated attestation - Fidelina Shields MD - 09/20/2017 9:34 PM PDTAttending: I saw and examined Berlin Temple ([id number]) with KESHAWN Alexander on mornin g rounds [...] dispo planning when able. Fidelina Shields MD [employer] Division of Trauma, Critical Care and Acute Care Surgery Office: [phone] Pager: [phone] Mary Medrano MD,MPH - 09/19/2017 6:22 AM [...] downgraded from thin to thick liquids by PAPER STRIPPER Current meds: I have independently reviewed current [...] intact, small Right fluctuant pseudomeningocele Neck: in Colts Neck collar Respiratory: unlabored on room air CV: [...] DHT on09/19. - Cleared for diet by PAPER STRIPPER, tolerating purees, 749 Calories yesterday - Restart Calorie count: if taking >700 again will be OK for full po diet, otherwise replac e DHT and restart TF - Stop TPN tomorrow regardless - Still considering repeat CT abdomen/pelvis #Dysphagia DHTreplaced overnight 09/07. TF held due to emesis and possible ileus, aspiration risk. T pulled overnight on 09/18 - PAPER STRIPPER as able Resolved or chronic issues/Plan: #BIG 3 TBI #Right synthetic cranioplasty Neurosurgery consulted. Non-operative management. Last head CT 09/12 stable. Expected pseudo meningocele. Left-sided deficits consistent with baseline. - Stat head CT for any neurologic decline #C7 bilateral lamina fractures #C6-T2 spinous process fractures Neurosurgery consulted. Non-operative management. Upright cervical X-rays completed on 09/14 . - C-collar at all times, use HAND PACKER when OOB - Follow-up with Neurosurgery on [...] M.D., M.P.H. Neurological Surgery Resident PGY-1 Pager: [phone] Associated attestation - Fidelina Shields MD - 09/19/2017 1:36 PM PDTAttending: I saw and examined Berlin Temple ([id number]) with the residents on morning rounds 09/19/17 and agree with the assessment and plan as outlined in this note and participated in the plan aashish of care. Improving po intake, will titrate TPN. Plan to DC TPN tomorrow and transition to PO vs PO + TF depending on calorie counts. Once of restraints will begin looking for placement. Fidelina Shields MD [employer] Division of Trauma, Critical Care and Acute Care Surgery Office: [phone] Pager: [phone] Mary Medrano MD,MPH - 09/18/2017 6:17 AM [...] fluctuant pseudomeningocele,Dobhoff tubein p lace Neck: in Colts Neck collar Respiratory: unlabored on room air CV: [...] holding TF - Cleared for diet by PAPER STRIPPER, tolerating small quantities of purees - Will need repeat CT A/P within 1-2 days #Hypervolemia I&O approaching even. Appears to have been auto-diuresing. - Continue to monitor urine output - Monitor electrolytes, replete prn #Dysphagia DHTreplaced overnight 09/07. TF held due to emesis and possible ileus, aspiration risk. - PAPER STRIPPER as able #C7 bilateral lamina fractures #C6-T2 spinous process fractures Neurosurgery consulted. Non-operative management. Upright cervical X-rays completed on 09/14 . - C-collar at all times, use HAND PACKER when OOB - Follow-up with Neurosurgery on [...] by patient, but wound remains duke n/dry/intact. [place] removed 09/17. #Left hemothorax Chest tube placed [...] M.D., M.P.H. Neurological Surgery Resident PGY-1 Pager: [phone] signed by Fidelina Shields MD at 09/19/2017 3:58 PM PDT Associated attestation - Fidelina Shields MD - 09/19/2017 3:58 PM PDTAttending: I saw and examined Berlin Temple ([id number]) with the residents on morning rounds 09/18/17 and agree with the assessment and plan as outlined in this note and participated in the plan aashish of care. Fidelina Shields MD [employer] Division of Trauma, Critical Care and Acute Care Surgery Office: [phone] Pager: [phone] Mary Medrano MD,MPH - 09/17/2017 6:26 AM [...] fluctuant pseudomeningocele,Dobhoff tubein p lace Neck: in Colts Neck collar Respiratory: unlabored on room air CV: [...] holding TF - Cleared for diet by PAPER STRIPPER, tolerating small quantities of purees #Hypervolemia I&O approaching even. Appears to have been auto-diuresing. - Continue to monitor urine output - Monitor electrolytes, replete prn #Dysphagia DHTreplaced overnight 09/07. TF held due to emesis and possible ileus, aspiration risk. - PAPER STRIPPER as able #C7 bilateral lamina fractures #C6-T2 spinous process fractures Neurosurgery consulted. Non-operative management. Upright cervical X-rays completed on 09/14 . - C-collar at all times, use HAND PACKER when OOB - Follow-up with Neurosurgery on [...] M.D., M.P.H. Neurological Surgery Resident PGY-1 Pager: [phone] signed by Fidelina Shields MD at 09/17/2017 2:29 PM PDT Associated attestation - Fidelina Shields MD - 09/17/2017 2:29 PM PDTAttending: I saw and examined Berlin Temple ([id number]) with the residents on morning rounds 09/17/17 [...] repeat C T abdomen/pelvis. Fidelina Shields MD [employer] Division of Trauma, Critical Care and Acute Care Surgery Office: [phone] Pager: [phone] Venita Pruitt PA-C - 09/16/2017 6:45 AM [...] HEENT: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 | City/State/Zipcode | Phone Number | | Organization | | | | + + + + + | [facility] - | [address] | [place] [address] | | | [place] | | | [...] [facility] | [address] | [place] [address] | | | SERVICES, CORE | PARK [...] + | [facility] | [address] | [place] [address] | | | SERVICES, CORE | PARK [...] | [facility] | [address] | [place] [address] | | | SERVICES, CORE | [address] [...] | | | LABORATORY | | | FINNISH | | | SERVICES, | | | [...] | + + + + + | [facility] | [address] | [place] [address] | | | SERVICES, CORE | PARK [...] [facility] | [address] | [place] [address] | | | SERVICES, CORE | PARK [...] + | [facility] | [address] | [place] [address] | | | SERVICES, NATALEE | VILMA [...] | | | LABORATORY | | | FINNISH | | | SERVICES, | | | [...] [facility] | [address] | [place] [address] | | | SERVICES, CORE | VILMA [...] DEPT OF | [address] | [place], [place] | | | CARDIOLOGY | [address] | [address] | | + + + + + [...] [facility] | [address] | [place] [address] | | | ELIN, NATALEE | VILMA [...] | | | LABORATORY | | | FINNISH | | | SERVICES, | | | [...] 8 | 4 - 11 mmol/L | [facility] | | | GAP(ALB [...] [facility] | [address] | [place] [address] | | | SERVICES, CORE | VILMA [...] [facility] | [address] | [place] [address] | | | SERVICES, CORE | VILMA [...] | | | LABORATORY | | | FINNISH | | | SERVICES, | | | [...] [facility] | [address] | [place] [address] | | | SERVICES, [facility] | [address] | | | + [...] [facility] | [address] | [place] [address] | | | SERVICES, CORE | PARK [...] | | | LABORATORY | | | FINNISH | | | SERVICES, | | | [...] the MDRD equation recommended by the | [facility] | | National Kidney [...] | + + + + + | [facility] | [address] | [place] [address] | | | ELIN, NATALEE | PARK [...] | [facility] | [address] | [place], [place] | | | CARDIOLOGY | [address] | [address] | | + + + + + [...] [facility] | [address] | [place], [place] | | | CARDIOLOGY | [address] | [address] | | + + + + + [...] | | | LABORATORY | | | FINNISH | | | SERVICES, | | | [...] | + + + + + | [facility] | [address] | [place] [address] | | | NATALEE WORTHINGTON | VILMA [...] | + + + + + | [facility] | [address] | [place] [address] | | | NATALEE WORTHINGTON | VILMA [...] + + + + | PRODUCT | [id number] | | [facility] | | | UNIT [...] + + + + | EXPIRATION | [id number] | | [facility] | | | DATE [...] + + + + | BLOOD | [id number] | | [facility] | | | PRODUCT [...] [facility] | [address] | [place] [address] | | | SERVICES, | [address] [...] + + + + | PRODUCT | [id number] | | [facility] | | | UNIT [...] + + + + | EXPIRATION | [id number] | | [facility] | | | DATE [...] + + + + | BLOOD | [id number] | | [facility] | | | PRODUCT [...] [facility] | [address] | [place] [address] | | | SERVICES, | [address] [...] | + + + + + | [facility] | [address] | [place] [address] | | | SERVICES, CORE | PARK [...] [facility] | [address] | [place] [address] | | | SERVICES, NATALEE | VILMA [...] | | | LABORATORY | | | FINNISH | | | SERVICES, | | | [...] | [facility] | [address] | [place] [address] | | | SERVICES, NATALEE | [address] | | | + + + + + OPERATION RECORD (11/06/2017 12:27 AM PDT) + + | Procedure Note | + + | Magdiel Stock MD - 11/06/2017 12:27 AM PDT Date of Service: 11/05/2017 Attending | | Surgeon: Magdiel Stock MD Marketing Researcher(s): Rg Aiken MD | | Preoperative Diagnoses: [...] his head was placed in a horseshoe apple packing header with his C-collar still | | [...] the incision down to the cranium. Once tonto apache | | skull was reached circumferentially around the prior incision, a #1 [place] was used | | to subperiosteally dissect [...] transferred gently to his hospital | | [facility] where he was extubated by the anesthesiology team and brought to the PACU for | | further recovery.FRANKIE Nugent was present for the critical portions of the | | procedure as described in the note for this encounter.Sonal Nnuez, | | [facility] [id number] [place], [place] | | [id number] Orina, MDJB/TAHIRLDD: 11/05/2017 20:38:01DT: 11/06/2017 | | 00:27:33Job #: [id number] | |HATTIE/DUC | | | | | | /[id number] | + + CT HEAD WO CONTRAST [...] Note | + + | Service Account, HRsoft Res In Interface - 11/05/2017 8:20 PM [...] Surgeon: Magdiel | | | MD Dayami Marketing Researcher: Rg Aiken MD Pre-op Diagnosis: | | [...] PGY-4 Neurological Surgery Pager | | | [phone] | | + + + CAPILLARY BLOOD [...] [facility] | [address] | [place], [place] | | | GLORIA GENAO OF CARE | [address] | [address] | | | TESTS | | | [...] [facility] | [address] | [place], [place] | | | HILL, POINT OF CARE | [address] | [address] | | | TESTS | | | [...] Note | + + | Service Account, Tunii In Interface - 11/05/2017 11:31 AM PDT [...] | + + + + + | [facility] | [address] | [place] [address] | | | NATALEE WORTHINGTON | [address]ILMA [...] | + + + + + | [facility] | [address] | [place] [address] | | | SERVICES, CORE | [address]IL[address] [...] | | | LABORATORY | | | FINNISH | | | SERVICES, | | | [...] [facility] | [address] | [place] [address] | | | SERVICES, CORE | PARK [...] [facility] | [address] | [place] [address] | | | ELIN, NATALEE | [address] [...] + + + + | PRODUCT | [id number] | | [facility] | | | UNIT [...] + + + + | EXPIRATION | [id number] | | [facility] | | | DATE [...] + + + + | BLOOD | [id number] | | [facility] | | | PRODUCT [...] [facility] | [address] | [place] [address] | | | SERVICES, | [address] [...] + + + + | PRODUCT | [id number] | | [facility] | | | UNIT [...] + + + + | EXPIRATION | [id number] | | [facility] | | | DATE [...] + + + + | BLOOD | [id number] | | [facility] | | | PRODUCT [...] [facility] | [address] | [place] [address] | | | SERVICES, | [address] [...] [facility] | [address] | [place] [address] | | | SERVICES, CORE | PARK [...] [facility] | [address] | [place] [address] | | | SERVICES, | [address] [...] [facility] | [address] | [place] [address] | | | SERVICES, | [address] [...] | [facility] | [address] | [place] [address] | | | SERVICES, NATALEE | VILMA [...] OF | [address] | [place], [place] | | | CARDIOLOGY | [address] | [address] | | + + + + + [...] [facility] | [address] | [place] [address] | | | SERVICES, CORE | PARK [...] | + + + + + | [facility] | [address] | [place] [address] | | | SERVICES, NATALEE | P[address] [...] + | [facility] - | [address] | [place] [address] | | | [place] | | | [...] [facility] | [address] | [place] [address] | | | NATALEE WORTHINGTON | PARK [...] [facility] | [address] | [place] [address] | | | SERVICES, CORE | [address] [...] | | | LABORATORY | | | FINNISH | | | SERVICES, | | | [...] the MDRD equation recommended by the | [facility] | | National Kidney [...] [facility] | [address] | [place] [address] | | | SERVICES, CORE | PARK [...] [facility] | [address] | [place] [address] | | | NATALEE WORTHINGTON | PARK [...] [facility] | [address] | [place] [address] | | | NATALEE WORTHINGTON | [address] [...] | | | LABORATORY | | | FINNISH | | | SERVICES, | | | [...] | + + + + + | [facility] | [address] | [place] [address] | | | SERVICES, CORE | VILMA [...] [facility] | [address] | [place] [address] | | | SERVICES, CORE | PARK [...] | | | LABORATORY | | | FINNISH | | | SERVICES, | | | [...] [facility] | [address] | [place] [address] | | | ELIN, NATALEE | VILMA [...] + + | [facility] | [address] | [place], [place] | | | CARDIOLOGY | [address] | [address] | | + + + + + [...] | [facility] | [address] | [place] [address] | | | SERVICES, CORE | [address]ARK [...] | | | LABORATORY | | | FINNISH | | | SERVICES, | | | [...] the MDRD equation recommended by the | [facility] | | National Kidney [...] | + + + + + | [facility] | [address] | [place] [address] | | | SERVICES, [facility] | [address] | | | + [...] OF | [address] | [place], [place] | | | CARDIOLOGY | [address] | [address] | | + + + + + [...] | | | LABORATORY | | | FINNISH | | | SERVICES, | | | [...] the MDRD equation recommended by the | [facility] | | National Kidney [...] | + + + + + | [facility] | [address] | [place] [address] | | | SERVICES, CORE | PARK [...] [facility] | [address] | [place] [address] | | | NATALEE WORTHINGTON | VILMA [...] - [facility] | [address] | [place], [place] | | | [facility] | [address] | [address] | | | TESTS | | | [...] [facility] | [address] | [place] [address] | | | NATALEE WORTHINGTON | PARK [...] | | | LABORATORY | | | FINNISH | | | SERVICES, | | | [...] | + + + + + | [facility] | [address] | [place] [address] | | | SERVICES, CORE | VILMA [...] Note | + + | Service Account, Tunii In Interface - 10/29/2017 12:13 PM PDT [...] [facility] | [address] | [place], [place] | | | [facility] | [address] | [address] | | | TESTS | | | [...] [facility] | [address] | [place] [address] | | | SERVICES, CORE | PARK [...] | | | LABORATORY | | | FINNISH | | | SERVICES, | | | [...] the MDRD equation recommended by the | [facility] | | National Kidney [...] [facility] | [address] | [place] [address] | | | NATALEE WORTHINTGON | VILMA [...] (H) | 70 - 99 mg/dL | [facility] - | | | [...] [facility] | [address] | [place], [place] | | | [facility] | [address] | [address] | | | TESTS | | | [...] DEPT OF | [address] | [place], [place] | | | CARDIOLOGY | [address] | [address] | | + + + + + [...] - [facility] | [address] | [place], [place] | | | GLORIA GENAO OF CARE | [address] | [address] | | | TESTS | | | [...] [facility] | [address] | [place], [place] | | | GLOR[facility] GENA[facility] | [address] | [address] | | | TESTS | | | [...] [facility] | [address] | [place] [address] | | | SERVICES, CORE | PARK [...] + | [facility] - | [address] | [place] [address] | | | [place] | | | [...] | + + + + + | [facility] | [address] | [place] [address] | | | NATALEE WORTHINGTON | [address] | | | + [...] [facility] | [address] | [place] [address] | | | SERVICES, CORE | PARK [...] [facility] | [address] | [place] [address] | | | SERVICES, CORE | PARK [...] | | | LABORATORY | | | FINNISH | | | SERVICES, | | | [...] | [facility] | [address] | [place] [address] | | | SERVICES, NATALEE | [address] [...] [facility] | [address] | [place] [address] | | | SERVICES, CORE | VILMA [...] [facility] | [address] | [place] | | | GL[facility]IA GENAO OF CARE | [address] | [address] | | | TESTS | | | [...] - [facility] | [address] | [place], [place] | | | [facility] | [address] | [address] | | | TESTS | | | [...] 10/28/2017 | | | 9:20 AM Preliminary: Pahm Webb MD Dictation | | | initiated: Pham Webb MD 10/28/2017 8:42 AM | | + + + + + | Procedure Note | + + | Service Account, HRsoft Res In Interface - 10/28/2017 9:21 AM [...] Note | + + | Service Account, HRsoft Res In Interface - 10/27/2017 6:29 PM [...] TPN Procedure | | | location: Unit:[facility] Room: 4 Providers: Attending name: | [...] correct | | | patient, procedure, equipment, functional support analyst and site/side marked as | [...] vein. Catheter lot number: | | | [id number] with a length of 55 cm was [...] - [facility] | [address] | [place], [place] | | | GLORIA GENAO [facility] | [address] | [address] | | | TESTS | | | [...] DEPT OF | [address] | [place], [place] | | | CARDIOLOGY | [address] | [address] | | + + + + + [...] + + + | [facility] | [address] | [place], [place] | | | GL[facility]IA GENAO [facility] | [address] | [address] | | | TESTS | | | [...] [facility] | [address] | [place] [address] | | | SERVICES, CORE | VILMA [...] | | | LABORATORY | | | FINNISH | | | SERVICES, | | | [...] the MDRD equation recommended by the | [facility] | | National Kidney [...] | + + + + + | [facility] | [address] | [place] [address] | | | SERVICES, CORE | VILMA [...] (H) | 70 - 99 mg/dL | [facility] - | | | [...] [facility]ETT | [address] | [place], [place] | | | [facility] | [address] | [address] | | | TESTS | | | [...] [facility] | [address] | [place], [place] | | | [facility] | [address] | [address] | | | TESTS | | | [...] [facility] | [address] | [place], [place] | | | [facility]IA [facility]O OF [facility] | [address] | [address] | | | TESTS | | | [...] [facility] | [address] | [place] [address] | | | SERVICES, NATALEE | VILMA [...] | | | LABORATORY | | | FINNISH | | | SERVICES, | | | [...] | + + + + + | [facility] | [address] | [place] [address] | | | SERVICES, NATALEE | VILMA [...] PIYUSH | [address] | [place], [place] | | | [facility] | [address] | [address] | | | TESTS | | | [...] | | | LABORATORY | | | FINNISH | | | SERVICES, | | | [...] | + + + + + | [facility] | [address] | [place] [address] | | | NATALEE WORTHINGTON | VILMA [...] RAPHAELAM | [address] | [place], [place] | | | [facility] | [address] | [address] | | | TESTS | | | [...] [facility]PT OF | [address] | [place], [place] | | | CARDIOLOGY | [address] | [address] | | + + + + + [...] [facility] | [address] | [place], [place] | | | [facility] | [facility] | [address] | | | TESTS | | | [...] OF | [address] | [place], [place] | | | CARDIOLOGY | [address] | [address] | | + + + + + [...] [facility] | [address] | [place] [address] | | | SERVICES, CORE | P[facility] [...] [place] | | + + + + + + + + | Specimen | + + | Blood - Blood | | (substance) | + + + + + + + | Performing | Address | City/State/Zipcode | Phone Number | | Organization | | | | + + + + + | [facility] | [address] | [place] [address] | | | [facility] [facility] [...] | + + + + + | [facility] | [address] | [place] [address] | | | SERVICES, CORE | PARK [...] [facility] | [address] | [place] [address] | | | SERVICES, CORE | VILMA [...] | + + + + + | [facility] | [address] | [place] [address] | | | SERVICES, CORE | PARK [...] [facility] | [address] | [place] [address] | | | SERVICES, CORE | PARK [...] [facility] | [address] | [place] [address] | | | SERVICES, CORE | PARK [...] [facility] | [address] | [place] [address] | | | SERVICES, CORE | VILMA [...] [facility] | [address] | [place] [address] | | | SERVICES, CORE | PARK [...] [facility] | [address] | [place] [address] | | | SERVICES, CORE | VILMA [...] [facility] | [address] | [place] [address] | | | SERVICES, CORE | PARK [...] | + + + + + | [facility] | [address] | [place] [address] | | | NATALEE WORTHINGTON | PARK [...] | | | LABORATORY | | | FINNISH | | | SERVICES, | | | [...] | + + + + + | [facility] | [address] | [place] [address] | | | SERVICES, CORE | VILMA [...] | | | correct patient, procedure, equipment, functional support analyst and site/side | | | [...] | area Basilic vein. Catheter lot number: [id number] with a length of 55 | | [...] [facility] | [address] | [place], [place] | | | GLORIA GENAO OF [facility] | [facility] | [address] | | | TESTS | | | [...] | | Surgical Critical Care, PGY7 Pager: [phone] | | + + + CAPILLARY BLOOD [...] - [facility] | [address] | [place], [place] | | | [facility] | [address] | [address] | | | TESTS | | | [...] + + + | [facility] | [address] | [place], [place] | | | [facility] | [address] | [address] | | | TESTS | | | [...] | | | LABORATORY | | | FINNISH | | | SERVICES, | | | [...] [facility] | [address] | [place] [address] | | | SERVICES, CORE | PARK [...] [facility] | [address] | [place] [address] | | | NATALEE WORTHINGTON | VILMA [...] [facility] | [address] | [place], [place] | | | GLORIA GENAO OF CARE | [address] | [address] | | | TESTS | | | [...] [facility] | [address] | [place] [address] | | | SERVICES, CORE | PARK [...] | | | LABORATORY | | | FINNISH | | | SERVICES, | | | [...] the MDRD equation recommended by the | [facility] | | National Kidney [...] | + + + + + | [facility] | [address] | [place] [address] | | | SERVICES, NATALEE | VILMA [...] | [facility] | [address] | [place], [place] | | | CARDIOLOGY | [address] | [address] | | + + + + + IR GASTROSTOMY TUBE EXCHANGE (10/22/2017 2:42 PM PDT) + + | Specimen | + + | | + + + + + | Narrative | Performed At | + + + | Procedure: Gastrostomy tube exchange Primary attending | [facility] | | rn acute care: Shade Goodwin M.D. Preoperative diagnosis: | RADIOLOGY VOICE | | Malfunctioning Gastrostomy tube Postoperative diagnosis: Same | RECOGNITION | | Operations: Operation 1. Removal of existing Gastrostomy tube | | | over a guide wire Operation 2. Placement of 24 Tongan GABRIEL | | | gastrostomy over guide [...] a stiff glide wire the new 24 Tongan gastrostomy tube was | | | inserted. [...] Procedure: | | Gastrostomy tube exchangePrimary attending rn acute care: Shade Goodwin | | BrynPreoperative diagnosis: Malfunctioning Gastrostomy tubePostoperative diagnosis: | | SameOperations:Operation 1. Removal of existing Gastrostomy tube over a guide | | wireOperation 2. Placement of 24 Tongan GABRIEL gastrostomy over guide wireNo sedation was [...] glide wire the | | new 24 Tongan gastrostomy tube was inserted. The position of [...] stiff g lide wire the new 24 Tongan | |gastrostomy tube was inserted. The position [...] | + + + + + | [facility] | [address] | [place], [place] | | | CARDIOLOGY | [address] | [address] | | + + + + + [...] Note | + + | Service Account, [employer] In Interface - 10/22/2017 8:06 AM [...] [facility] | [address] | [place] [address] | | | SERVICES, CORE | PARK [...] | | | LABORATORY | | | FINNISH | | | SERVICES, | | | [...] the MDRD equation recommended by the | [facility] | | National Kidney [...] | + + + + + | [facility] | [address] | [place] [address] | | | NATALEE WORTHINGTON | V[place] [...] OF | [address] | [place], [place] | | | CARDIOLOGY | [facility] | [address] | | + + + + + [...] | | | LABORATORY | | | FINNISH | | | SERVICES, | | | [...] | + + + + + | [facility] | [address] | [place] [address] | | | NATALEE WORTHINGTON | VILMA [...] | + + + + + | [facility] | [address] | [place] [address] | | | SERVICES, NATALEE | VILMA [...] DEPT OF | [address] | [place], [place] | | | CARDIOLOGY | [address] | [address] | | + + + + + [...] [facility] | [address] | [place] [address] | | | SERVICES, NTAALEE | [address] | | | + [...] | | | LABORATORY | | | FINNISH | | | SERVICES, | | | [...] [facility] | [address] | [place] [address] | | | ELIN, NATALEE | VILMA [...] DEPT OF | [address] | [place], [place] | | | CARDIOLOGY | [address] | [address] | | + + + + + [...] | | | LABORATORY | | | FINNISH | | | SERVICES, | | | [...] [facility] | [address] | [place] [address] | | | ELIN, NATALEE | VILMA [...] [facility] | [address] | [place] [address] | | | SERVICES, CORE | VILMA [...] | + + + + + | [facility] | [address] | [place], [place] | | | CARDIOLOGY | [address] | [address] | | + + + + + [...] | | | LABORATORY | | | FINNISH | | | SERVICES, | | | [...] [facility] | [address] | [place] [address] | | | SERVICES, CORE | PARK [...] [facility] | [address] | [place] [address] | | | NATALEE WORTHINGTON | VILMA [...] Note | + + | Service Account, Tunii In Interface - 10/15/2017 3:58 PM PDT [...] DEPT OF | [address] | [place], [place] | | | CARDIOLOGY | [address] | [address] | | + + + + + [...] [facility] | [address] | [place], [place] | | | GLORIA GENAO OF [facility] | [address] | [address] | | | TESTS | | | [...] [facility] | [address] | [place] [address] | | | SERVICES, CORE | VILMA [...] (H) | 70 - 99 mg/dL | [facility] - | | | [...] [facility] | [address] | [place], [place] | | | GLORIA GENAO OF CARE | [facility] | [address] | | | TESTS | | | [...] DEPT OF | [address] | [place], [place] | | | CARDIOLOGY | [address] | [address] | | + + + + + [...] [facility] | [address] | [place] [address] | | | SERVICES, CORE | PARK [...] | | | LABORATORY | | | FINNISH | | | SERVICES, | | | [...] the MDRD equation recommended by the | [facility] | | National Kidney [...] | + + + + + | [facility] | [address] | [place] [address] | | | SERVICES, CORE | [address] | | | + + + + + MAGNESIUM, PLASMA (10/14/2017 4:53 AM PDT) + +-------+ + + + | Component | Value | Ref Range | Performed | Pathologist | | | | | At | Signature | + +-------+ + + + | MAGNESIUM,P | 1.7 | 1.6 - 2.6 mg/dL | [facility] [...] [facility] | [address] | [place] [address] | | | NATALEE WORTHINGTON | V[place]MA [...] [facility] | [address] | [place], [place] | | | [facility] | [address] | [address] | | | TESTS | | | [...] (H) | 70 - 99 mg/dL | [facility] - | | | [...] + + + | [facility] | [address] | [place], [place] | | | GL[facility]IA GENAO OF [facility] | [address] | [address] | | | TESTS | | | [...] [facility] | [address] | [place] [address] | | | NATALEE WORTHINGTON | [place] [...] | | | LABORATORY | | | FINNISH | | | SERVICES, | | | [...] | + + + + + | [facility] | [address] | [place] [address] | | | ELIN, NATALEE | [address] | | | + + + + + OPERATION RECORD (10/12/2017 8:50 PM PDT) + + | Procedure Note | + + | Pilar Cotto MD - 10/12/2017 8:50 PM PDT Date of Service: 10/12/2017 | | Attending Surgeon: Chaz Munoz MD Marketing Researcher(s): Randell Dixon M.D., | | fellow. George [...] saline. We then | | placed a 19-Tongan drain deep into the abscess cavity, tracking [...] 10/12/2017 19:50:06DT: 10/12/2017 20:50:54Job #: | | [id number] | + + X-RAY PORTABLE CHEST 1 [...] [facility] | [address] | [place], [place] | | | GLORIA GENAO OF [employer] | [address] | [address] | | | TESTS | | | [...] | [facility] | [address] | [place] [address] | | | SERVICES, CORE | VILMA [...] | | | LABORATORY | | | FINNISH | | | SERVICES, | | | [...] [facility] | [address] | [place] [address] | | | SERVICES, CORE | PARK [...] | + + + + + | [facility] | [address] | [place] [address] | | | SERVICES, CORE | VILMA [...] GEET OF | [address] | [place], [place] | | | CARDIOLOGY | [address] | [address] | | + + + + + [...] DEPT OF | [address] | [place], [place] | | | CARDIOLOGY | [address] | [address] | | + + + + + [...] | + + + + + | [facility] | [address] | [place] [address] | | | SERVICES, CORE | PARK [...] [facility] | [address] | [place] [address] | | | SERVICES, CORE | PARK [...] | | | LABORATORY | | | FINNISH | | | SERVICES, | | | [...] + | [facility] | [address] | [place] [address] | | | [facility] | [address] | | | + + + + + PROCEDURE NOTE (10/10/2017 10:00 PM PDT) + + + | Narrative | Performed At | + + + | Darius Link MD 10/12/2017 11:11 AM OPERATIVE REPORT | | | DATE OF OPERATION: 10/10/2017 ATTENDING SURGEON: 1. Dr. Munoz | | | CARTON FORMING MACHINE HELPER: 1. 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 | | | Open Gastrostomy tube placement with extensive lysis of adhesions | | | FINDINGS: 1. Scared Open SPECIMENS:: 1.None DRAINS: | | | 1.[facility] Button Gastrostomy tube COMPLICATIONS: 1. None | [...] | | | [place] [id number] Chief Resident | | | Neurosurgery | [...] | [facility] | [address] | [place] [address] | | | SERVICES, CORE | V[place]MA [...] | | | LABORATORY | | | FINNISH | | | SERVICES, | | | [...] [facility] | [address] | [place] [address] | | | ELIN, NATALEE | PARK [...] [facility] | [address] | [place] [address] | | | SERVICES, [facility] | [address] | | | + + + + + OPERATION RECORD (10/10/2017 12:40 PM PDT) + + | Procedure Note | + + | Magdiel Stock MD - 10/10/2017 12:40 PM PDT Date of Service: 10/10/2017 Attending | | Surgeon: Magdiel Stock MD Marketing Researcher(s): Cecilia Hernandez, | | . Preoperative Diagnoses: [...] | the note for this encounter.Sonal Nunez MDW[facility] [id number] [facility] | | [place] [id number] Orina, MDFAH/MODLDD: | | 10/10/2017 11:52:15DT: 10/10/2017 12:40:41Job #: [id number] | | | | | |I was present for the critical portions of the procedure as described in the note for this encounter. | | | |Magdiel Stock MD | | | |Magdiel Stock MD | |[address] | |[address] [facility] | |[facility] | |[place] [address] | |[phone] | | | | | |Magdiel Stock MD | |FAH/MODL | | | | | | /[id number] | + + X-RAY ABDOMEN 1 VIEW [...] + | [facility] | [address] | [place] [address] | | | [place] | | | [...] + | [facility] | [address] | [place] [address] | | | [place] | | | [...] Gram Stain: No squamous epithelial cells | [place] | | Many polymorphonuclear cells No organisms seen | | + + + + + + + + | Performing | Address | City/State/Zipcode | Phone Number | | Organization | | | | + + + + + | [facility] | [address] | [place] [address] | | | [facility] [...] detected | [facility] - | | | [place] | + + + + + + + + | Performing | Address | City/State/Zipcode | Phone Number | | Organization | | | | + + + + + | [facility] | [address] | [place] [address] | | | [place] | | | [...] | + + + + + | [facility] | [address] | [place] [address] | | | [place] | | | | + + + [...] + | [facility] | [address] | [place] [address] | | | [facility] [...] + | [facility] | [address] | [place] [address] | | | [place] | | | [...] | + + + + + | [facility] - | [address] | [place] [address] | | | [place] | | | | + + + [...] No squamous epithelial cells No polymorphonuclear | [facility] - | | cells No organisms seen | [place] | + + + + + + + + | Performing | Address | City/State/Zipcode | Phone Number | | Organization | | | | + + + + + | [facility] | [address] | [place] [address] | | | [place] | | | [...] + | [facility] | [address] | [place] [address] | | | [place] | | | [...] + | [facility] | [address] | [place] [address] | | | [facility] [...] detected | AIRPORT - | | | [place] | + + + + + + + + | Performing | Address | City/State/Zipcode | Phone Number | | Organization | | | | + + + + + | [facility] | [address] | [place] [address] | | | [place] | | | | + + + [...] + | [facility] | [address] | [place] [address] | | | [place] | | | [...] + | [facility] | [address] | [place] [address] | | | [place] | | | [...] + | [facility] | [address] | [place] [address] | | | [place] | | | | + + + [...] + | [facility] | [address] | [place] [address] | | | [place] | | | [...] + | [facility] | [address] | [place] [address] | | | [place] | | | [...] + | [facility] | [address] | [place] [address] | | | [facility] [...] + + | [facility] | [address] | [place] [address] | | | SERVICES, CORE | PARK [...] | + + + + + | [facility] | [address] | [place] [address] | | | SERVICES, CORE | PARK [...] [facility] | [address] | [place] [address] | | | SERVICES, NATALEE | [place] [...] | | | LABORATORY | | | FINNISH | | | SERVICES, | | | [...] | + + + + + | [facility] | [address] | [place] [address] | | | SERVICES, NATALEE | V[place]MA [...] DEPT OF | [address] | [place], [place] | | | CARDIOLOGY | [address] | [address] | | + + + + + [...] + + + + | PRODUCT | [id number] | | [facility] | | | UNIT [...] + + + + | EXPIRATION | [id number] | | [facility] | | | DATE [...] + + + + | BLOOD | [id number] | | [facility] | | | PRODUCT [...] [facility] | [address] | [place] [address] | | | SERVICES, | [address] [...] + + + + | PRODUCT | [id number] | | [facility] | | | UNIT [...] + + + + | EXPIRATION | [id number] | | [facility] | | | DATE [...] + + + + | BLOOD | [id number] | | [facility] | | | PRODUCT [...] [facility] | [address] | [place] [address] | | | SERVICES, | [address] [...] [facility] | [address] | [place] [address] | | | SERVICES, | [address] [...] [facility] | [address] | [place] [address] | | | SERVICES, | [...] | + + + + + | [facility] | [address] | [place] [address] | | | SERVICES, | [address] [...] | + + + + + | [facility] | [address] | [place] [address] | | | SERVICES, CORE | [address] | | | + + + + + 12 LEAD ECG (10/09/2017 10:03 AM PDT) + + + + + + | Component | Value | Ref Range | Performed | Pathologist | | | | | At | Signature | + + + + + + | VENTR[facility]ULAR | 61 | bpm | [facility] | | | RATE | | [...] + + | [facility] | [address] | [place], [place] | | | CARDIOLOGY | [address] | [address] | | + + + + + [...] Note | + + | Service Account, Tunii In Interface - 10/08/2017 10:47 AM PDT [...] + + + | [facility] | [address] | [place], [place] | | | GLORIA GENAO OF CARE | [address] | [address] | | | TESTS | | | [...] [facility] | [address] | [place] [address] | | | NATALEE WORTHINGTON | [place] [...] | + + + + + | [facility] | [address] | [place] [address] | | | SERVICES, CORE | PARK [...] | | | LABORATORY | | | FINNISH | | | SERVICES, | | | [...] | + + + + + | [facility] | [address] | [place] [address] | | | SERVICES, CORE | [place] [...] [facility] | [address] | [place] | | | GLORIA GENAO OF [employer] | [facility] | [address] | | | TESTS | | | [...] [facility] | [address] | [place], [place] | | | GLORIA GENAO OF [employer] | [facility] | [address] | | | TESTS | | | [...] (H) | 70 - 99 mg/dL | [facility] - | | | [...] [facility] | [address] | [place] | | | [facility] | [address] | [address] | | | TESTS | | | [...] [facility] | [address] | [place] | | | GLORIA GENAO OF CARE | [facility] | [address] | | | TESTS | | | [...] [facility] | [address] | [place] | | | [facility] | [facility] | [address] | | | TESTS | | | [...] + | [facility] | [address] | [place] [address] | | | SERVICES, CORE | PARK [...] [facility] | [address] | [place] [address] | | | SERVICES, CORE | PARK [...] | | | LABORATORY | | | FINNISH | | | SERVICES, | | | [...] the MDRD equation recommended by the | [facility] | | National Kidney [...] | + + + + + | [facility] | [address] | [place] [address] | | | ELIN, NATALEE | [place] [...] - [facility] | [address] | [place], [place] | | | [facility] | [address] | [address] | | | TESTS | | | [...] [facility] | [address] | [place] | | | GLORIA GENAO OF [facility] | [address] | [address] | | | TESTS | | | [...] DEPT OF | [address] | [place], [place] | | | CARDIOLOGY | [address] | [address] | | + + + + + [...] [facility] | [address] | [place], [place] | | | [facility] | [facility] | [address] | | | TESTS | | | [...] [facility] | [address] | [place] [address] | | | SERVICES, CORE | [place] [...] [facility] | [address] | [place] [address] | | | SERVICES, CORE | PARK [...] | | | LABORATORY | | | FINNISH | | | SERVICES, | | | [...] | + + + + + | [facility] | [address] | [place] [address] | | | SERVICES, NATALEE | [place] [...] (H) | 70 - 99 mg/dL | [facility] - | | | [...] [facility] | [address] | [place] | | | GLORIA GENAO OF [employer] | [facility] | [address] | | | TESTS | | | [...] [facility] | [address] | [place] | | | [facility] | [address] | [address] | | | TESTS | | | [...] [facility] | [address] | [place] | | | [place], POINT OF CARE | [address] | [address] | | | TESTS | | | [...] [facility] | [address] | [place], [place] | | | GLORIA GENAO OF [facility] | [address] | [address] | | | TESTS | | | [...] DEPT OF | [address] | [place], [place] | | | CARDIOLOGY | [address] | [address] | | + + + + + [...] | + + + + + | [facility] | [address] | [place] [address] | | | SERVICES, CORE | PARK [...] [facility] | [address] | [place] [address] | | | SERVICES, NATALEE | [place] [...] | | | LABORATORY | | | FINNISH | | | SERVICES, | | | [...] | [facility] | [address] | [place] [address] | | | ELIN, NATALEE | V[place]MA [...] [facility] | [address] | [place], [place] | | | GLORIA GENAO OF CARE | [facility] | [address] | | | TESTS | | | [...] (H) | 70 - 99 mg/dL | [facility] - | | | [...] [facility] | [address] | [place], [place] | | | [facility] | [address] | [address] | | | TESTS | | | [...] [facility] | [address] | [place] | | | GLORIA GENAO OF [employer] | [facility] | [address] | | | TESTS | | | [...] [facility] | [address] | [place], [place] | | | GL[facility]IA GENAO OF CARE | [address] | [address] | | | TESTS | | | [...] (H) | 70 - 99 mg/dL | [facility] - | | | [...] [facility] | [address] | [place] | | | GLORIA GENAO OF [facility] | [address] | [address] | | | TESTS | | | [...] [facility] | [address] | [place] [address] | | | NATALEE WORTHINGTON | [place] [...] [facility] | [address] | [place] [address] | | | SERVICES, CORE | VILMA [...] | | | LABORATORY | | | FINNISH | | | SERVICES, | | | [...] | + + + + + | [facility] | [address] | [place] [address] | | | SERVICES, CORE | VILMA [...] (H) | 70 - 99 mg/dL | [facility] - | | | [...] [facility] | [address] | [place], [place] | | | GLORIA GENAO OF [facility] | [address] | [address] | | | TESTS | | | [...] [facility] | [address] | [place], [place] | | | [facility] | [address] | [address] | | | TESTS | | | [...] | [facility] | [address] | [place] [address] | | | SERVICES, CORE | PARK [...] by | | | | | | Productiv,500 | | | | | | Neva Pickard, [facility] [place] | | | | | | [address] | | | | | | [phone].Yecuris. | | | | | | Gui [...] [facility] | [address] | [place], [place] | | | [facility] | | [address] | | + + + + + [...] [facility] | [address] | [place] [address] | | | SERVICES, CORE | PARK [...] | + + + + + | [facility] | [address] | [place] [address] | | | NATALEE WORTHINGTON | [facility]MA [...] modified from | [facility] | | original print press operator's approved specifications. The performance | LABORATORY | | of the RIB CUTTER HIV Combo test, with or without confirmation, was not | SERVICES, | | tested in pediatric patients less than 2 years of age. [facility] | SPECIAL IMM + | | guidelines [...] | + + + + + | [facility] | [address] | [place] [address] | | | SERVICES SPECIAL | VILMA [...] - [facility] | [address] | [place], [place] | | | GLORIA GENAO OF CARE | [address] | [address] | | | TESTS | | | [...] + + + | [facility] | [address] | [place], [place] | | | [facility] | [address] | [address] | | | TESTS | | | [...] [facility] | [address] | [place] [address] | | | NATALEE WORTHINGTON | VILMA [...] | + + + + + | [facility] | [address] | [place] [address] | | | ELIN, NATALEE | V[facility]MA [...] | | | LABORATORY | | | FINNISH | | | SERVICES, | | | [...] [facility] | [address] | [place] [address] | | | SERVICES, CORE | VILMA [...] PIYUSH | [address] | [place], [place] | | | GLORIA GENAO OF GM | [address] | [address] | | | TESTS | | | [...] + + + | SELENA PICKETT | [address] | [place], [place] | | | GLORIA GENAO OF CARE | [address] | [address] | | | TESTS | | | [...] + + | SELENA GEET OF | [address] | [place], [place] | | | CARDIOLOGY | [address] | [address] | | + + + + + [...] PICKETT | [address] | [place], [place] | | | GLORIA GENAO OF [facility] | [address] | [address] | | | TESTS | | | [...] MARQUAM | [address] | [place], [place] | | | [facility] | [address] | [address] | | | TESTS | | | [...] | + + + + + | [facility] | [address] | [place] [address] | | | SERVICES, CORE | [address] | | | + + + + + MAGNESIUM, PLASMA (10/02/2017 5:12 AM PDT) + +-------+ + + + | Component | Value | Ref Range | Performed | Pathologist | | | | | At | Signature | + +-------+ + + + | MAGNESIUM,P | 2.1 | 1.6 - 2.6 mg/dL | [facility] [...] | + + + + + | [facility] | [address] | [place] [address] | | | SERVICES, CORE | PARK [...] | | | LABORATORY | | | FINNISH | | | SERVICES, | | | [...] [facility] | [address] | [place] [address] | | | NATALEE WORTHINGTON | VILMA [...] PIYUSH | [address] | [place], [place] | | | GLORIA GENAO OF CARE | [address] | [address] | | | TESTS | | | [...] PICKETT | [address] | [place], [place] | | | GLORIA GENAO OF CARE | [address] | [address] | | | TESTS | | | [...] Note | + + | Service Account, HRsoft Res In Interface - 10/01/2017 2:15 PM [...] - PAWANDALLAS | [address] | [place], [place] | | | [facility] | [address] | [address] | | | TESTS | | | [...] MARQUAM | [address] | [place] | | | [facility] | [address] | [address] | | | TESTS | | | [...] [facility] | [address] | [place] [address] | | | SERVICES, CORE | PARK [...] [facility] | [address] | [place] [address] | | | SERVICES, CORE | PARK [...] | | | LABORATORY | | | FINNISH | | | SERVICES, | | | [...] | + + + + + | [facility] | [address] | [place] [address] | | | NATALEE WORTHINGTON | VILMA [...] MARQUAM | [address] | [place] | | | GLORIA GENAO OF CARE | [address] | [address] | | | TESTS | | | [...] PICKETT | [address] | [place], [place] | | | [facility] | [address] | [address] | | | TESTS | | | [...] | SELENA DEPT OF | [address] | [place], [place] | | | CARDIOLOGY | [address] | [address] | | + + + + + [...] RAPHAELAM | [address] | [place], [place] | | | GLORIA GENAO OF GM | [facility] | [address] | | | TESTS | | | [...] (H) | 70 - 99 mg/dL | [facility] - | | | [...] RAPHAELAM | [address] | [place] | | | GLORIA GENAO OF [facility] | [address] | [address] | | | TESTS | | | [...] | + + + + + | [facility] | [address] | [place] [address] | | | NATALEE WORTHINGTON | PARK [...] [facility] | [address] | [place] [address] | | | SERVICES, CORE | VILMA [...] | | | LABORATORY | | | FINNISH | | | SERVICES, | | | [...] | + + + + + | [facility] | [address] | [place] [address] | | | SERVICES, CORE | VILMA [...] (H) | 70 - 99 mg/dL | [facility] - | | | [...] + + + | SELENA PICKETT | [address] | [place] | | | [facility] | [address] | [address] | | | TESTS | | | [...] MARQUAM | [address] | [place] | | | GLORIA GENAO OF CARE | [address] | [address] | | | TESTS | | | [...] - MARQUAM | [address] | [place] | | | [facility] | [address] | [address] | | | TESTS | | | [...] | SELENA DEPT OF | [address] [facility] [facility] | [place], [place] | | | CARDIOLOGY | [address] | [address] | | + + + + + [...] - PIYUSH | [address] | [place] | | | GLORIA GENAO OF [facility] | [facility] | [address] | | | TESTS | | | [...] [facility] | [address] | [place] [address] | | | SERVICES, NATALEE | VILMA [...] | | | LABORATORY | | | FINNISH | | | SERVICES, | | | [...] | + + + + + | [facility] | [address] | [place] [address] | | | SERVICES, CORE | VILMA [...] [facility] | [address] | [place] [address] | | | NTAALEE WORTHINGTON | VILMA [...] MARQUAM | [address] | [place] | | | GLORIA GENAO OF GM | [facility] | [address] | | | TESTS | | | [...] PICKETT | [address] | [place] | | | [facility] | [address] | [address] | | | TESTS | | | [...] MARQUAM | [address] | [place] | | | [facility] | [address] | [address] | | | TESTS | | | [...] GEET OF | [address] | [place] | | | CARDIOLOGY | [address] | [address] | | + + + + + [...] MARQUAM | [address] | [place] | | | GLORIA GENAO OF CARE | [address] | [address] | | | TESTS | | | [...] | + + + + + | [facility] | [address] | [place] [address] | | | SERVICES, CORE | [address] | | | + + + + + MAGNESIUM, PLASMA (09/28/2017 4:58 AM PDT) + +-------+ + + + | Component | Value | Ref Range | Performed | Pathologist | | | | | At | Signature | + +-------+ + + + | MAGNESIUM,P | 2.1 | 1.6 - 2.6 mg/dL | [facility] [...] [facility] | [address] | [place] [address] | | | NATALEE WORTHINGTON | VILMA [...] | | | LABORATORY | | | FINNISH | | | SERVICES, | | | [...] [facility] | [address] | [place] [address] | | | SERVICES, NATALEE | VILMA [...] MARQUAM | [address] | [place] | | | GLORIA GENAO OF CARE | [facility] | [address] | | | TESTS | | | [...] (H) | 70 - 99 mg/dL | [facility] - | | | [...] PICKETT | [address] | [place] | | | GLORIA GENAO OF [facility] | [address] | [address] | | | TESTS | | | [...] Note | + + | Service Account, HRsoft Res In Interface - 09/27/2017 2:19 PM [...] poorly cleared with dry swallows. Please see [facility] pathology report for full [...] MARQUAM | [address] | [place] | | | [facility] | [address] | [address] | | | TESTS | | | [...] PICKETT | [address] | [place] | | | [facility] | [address] | [address] | | | TESTS | | | [...] [facility] | [address] | [place] [address] | | | NATALEE WORTHINGTON | VILMA [...] | + + + + + | [facility] | [address] | [place] [address] | | | SERVICES, NATALEE | VILMA [...] | | | LABORATORY | | | FINNISH | | | SERVICES, | | | [...] | [facility] | [address] | [place] [address] | | | SERVICES, CORE | VILMA [...] PIYUSH | [address] | [place] | | | GLORIA GENAO OF [facility] | [address] | [address] | | | TESTS | | | [...] - PIYUSH | [address] | [place] | | | GLORIA GENAO OF [facility] | [address] | [address] | | | TESTS | | | [...] DEPT OF | [address] | [place], [place] | | | CARDIOLOGY | [address] | [address] | | + + + + + [...] MARQUAM | [address] | [place] | | | GLORIA GENAO OF GM | [address] | [address] | | | TESTS | | | [...] MARQUAM | [address] | [place] | | | GLORIA GENAO OF CARE | [facility] | [address] | | | TESTS | | | [...] PICKETT | [address] | [place] | | | GLORIA GENAO OF CARE | [address] | [address] | | | TESTS | | | [...] [facility] | [address] | [place] [address] | | | NATALEE WORTHINGTON | VILMA [...] | + + + + + | [facility] | [address] | [place] [address] | | | NATALEE WORTHINGTON | [address] [...] | | | LABORATORY | | | FINNISH | | | SERVICES, | | | [...] [facility] | [address] | [place] [address] | | | SERVICES, CORE | VILMA [...] MARQUAM | [address] | [place] | | | GLORIA GENAO OF CARE | [address] | [address] | | | TESTS | | | [...] now presented. | | | |Final signature: Dnaiel Armijo MD 09/25/2017 12:31 PM | |Preliminary: [...] [facility] | [address] | [place] [address] | | | NATALEE WORTHINGTON | VILMA [...] | + + + + + | [facility] | [address] | [place] [address] | | | SERVICES, NATALEE | [address] [...] | | | LABORATORY | | | FINNISH | | | SERVICES, | | | [...] | + + + + + | [facility] | [address] | [place] [address] | | | SERVICES, CORE | [address] | | | + + + + + 12 LEAD ECG (09/24/2017 9:28 PM PDT) + + + + + + | Component | Value | Ref Range | Performed | Pathologist | | | | | At | Signature | + + + + + + | VENTRICULAR | 74 | bpm | [facility] | | | RATE | | [...] MORALEZ OF | [address] | [place], [place] | | | CARDIOLOGY | [address] | [address] | | + + + + + [...] | | + +---------+ + + | [facility] | | | [...] [facility] | [address] | [place] [address] | | | SERVICES, NATALEE | [address]ARK [...] | | | LABORATORY | | | FINNISH | | | SERVICES, | | | [...] | + + + + + | [facility] | [address] | [place] [address] | | | SERVICES, CORE | [address] [...] | + + + + + | [facility] | [address] | [place] [address] | | | NATALEE WORTHINGTON | VILMA [...] LABORATORY | [address] | [place] [address] | | | SERVICES, CORE | [address]ARK [...] [facility] | [address] | [place] [address] | | | SERVICES, CORE | VILMA [...] | | | LABORATORY | | | FINNISH | | | SERVICES, | | | [...] | [facility] | [address] | [place] [address] | | | NATALEE WORTHINGTON | VILMA [...] PIYUSH | [address] | [place] | | | GLORIA GENAO OF CARE | [address] | [address] | | | TESTS | | | [...] (H) | 70 - 99 mg/dL | [facility] - | | | [...] PICKETT | [address] | [place] | | | [facility] | [address] | [address] | | | TESTS | | | [...] [facility] | [address] | [place] [address] | | | SERVICES, CORE | PARK [...] DEPT OF | [address] | [place] | | | CARDIOLOGY | [facility] | [address] | | + + + + + [...] | + + + + + | [facility] | [address] | [place] [address] | | | SERVICES, CORE | VILMA [...] [facility] | [address] | [place] [address] | | | SERVICES, CORE | [address]ARK [...] | | | LABORATORY | | | FINNISH | | | SERVICES, | | | [...] the MDRD equation recommended by the | [facility] | | National Kidney [...] | + + + + + | [facility] | [address] | [place] [address] | | | SERVICES, CORE | VILMA [...] SELENA PICKETT | [address] | [place] | | | GLORIA GENAO OF [facility] | [address] | [address] | | | TESTS | | | [...] [facility] | [address] | [place] [address] | | | NATALEE WORTHINGTON | VILMA [...] + + | [facility] | [address] | [place] [address] | | | NATALEE WORTHINGTON | [address] [...] | | | LABORATORY | | | FINNISH | | | SERVICES, | | | [...] | [facility] | [address] | [place] [address] | | | SERVICES, CORE | VILMA [...] Note | + + | Service Account, HRsoft Res In Interface - 09/20/2017 7:50 PM [...] Note | + + | Service Account, Tunii In Interface - 09/20/2017 6:26 PM PDT [...] Note | + + | Service Account, Tunii In Interface - 09/20/2017 5:17 PM PDT [...] OF | [address] | [place], [place] | | | CARDIOLOGY | [facility] | [address] | | + + + + + [...] [facility] | [address] | [place] [address] | | | SERVICES, CORE | VILMA [...] | + + + + + | [facility] | [address] | [place] [address] | | | SERVICES, CORE | [address] [...] | | | LABORATORY | | | FINNISH | | | SERVICES, | | | [...] | + + + + + | [facility] | [address] | [place] [address] | | | SERVICES, CORE | PARK [...] + | [facility] | [address] | [place] [address] | | | SERVICES, CORE | [address] [...] [facility] | [address] | [place] [address] | | | SERVICES, CORE | [address] [...] | | | LABORATORY | | | FINNISH | | | SERVICES, | | | [...] the MDRD equation recommended by the | [facility] | | National Kidney [...] | + + + + + | [facility] | [address] | [place] [address] | | | SERVICES, CORE | [...] [facility] | [address] | [place] [address] | | | NATALEE WORTHINGTON | PARK [...] [facility] | [address] | [place] [address] | | | SERVICES, CORE | [address] [...] | | | LABORATORY | | | FINNISH | | | SERVICES, | | | [...] | + + + + + | [facility] | [address] | [place] [address] | | | NATALEE WORTHINGTON | VILMA [...] Note | + + | Service Account, Tunii In Interface - 09/17/2017 11:53 AM PDT [...] | + + + + + | [facility] | [address] | [place] [address] | | | NATALEE WORTHINGTON | VILMA [...] [facility] | [address] | [place] [address] | | | SERVICES, CORE | [address]ARK [...] | | | LABORATORY | | | FINNISH | | | SERVICES, | | | [...] | + + + + + | [facility] | [address] | [place] [address] | | | SERVICES, CORE | VILMA [...] [facility] | [address] | [place] [address] | | | SERVICES, CORE | [address] [...] [facility] | [address] | [place] [address] | | | SERVICES, [facility] | [address] | | | + [...] | | | LABORATORY | | | FINNISH | | | SERVICES, | | | [...] the MDRD equation recommended by the | [facility] | | National Kidney [...] [facility] | [address] | [place] [address] | | | SERVICES, [facility] | [address] | | | + [...] + | Performing | Address | City/State[facility] | Phone Number | | Organization | [...] Indications:TPN Procedure | | | location: Unit:[facility] Room: #12 Providers: Attending name: | [...] | pause verifies correct patient, procedure, equipment, functional support analyst | | | and site/side [...] | area Basilic vein. Catheter lot number: [id number] with a length of 55 | | [...] + | Performing | Address | City/State/[facility] | Phone Number | | Organization | [...] | [facility] | [address] | [place] [address] | | | SERVICES, CORE | VILMA [...] [facility] | [address] | [place] [address] | | | SERVICES, CORE | [address]ARK [...] | | | LABORATORY | | | FINNISH | | | SERVICES, | | | [...] the MDRD equation recommended by the | [facility] | | National Kidney [...] | + + + + + | [facility] | [address] | [place] [address] | | | SERVICES, CORE | VILMA [...] | + + + + + | [facility] | [address] | [place] [address] | | | NATALEE WORTHINGTON | VILMA [...] [facility] | [address] | [place] [address] | | | SERVICES, CORE | [address]ARK [...] | | | LABORATORY | | | FINNISH | | | SERVICES, | | | [...] [facility] | [address] | [place] [address] | | | SERVICES, CORE | [address] [...] | + + + + + | [facility] | [address] | [place] [address] | | | NATALEE WORTHINGTON | VILMA [...] | [facility] | [address] | [place] [address] | | | SERVICES, CORE | [address] [...] | | | LABORATORY | | | FINNISH | | | SERVICES, | | | [...] | + + + + + | [facility] | [address] | [place] [address] | | | SERVICES, CORE | [address] | | | + + + + + X-RAY ABD LTD FEEDING TUBE EVAL (09/12/2017 6:50 AM PDT) + + | Specimen | + + | | + + + + + | Narrative | Performed At | + + + | EXAM: ABD LTD FEEDING TUBE EVAL HISTORY: Dobbhoff tube | [facility] | | placement. COMPARISON: 09/10/2017. FINDINGS/IMPRESSION: [...] Note | + + | Service Account, HRsoft Res In Interface - 09/12/2017 9:13 AM [...] | + + + + + | [facility] | [address] | [place] [address] | | | SERVICES, CORE | [address] | | | + + + + + MAGNESIUM, PLASMA (09/12/2017 6:33 AM PDT) + +-------+ + + + | Component | Value | Ref Range | Performed | Pathologist | | | | | At | Signature | + +-------+ + + + | MAGNESIUM,P | 2.3 | 1.6 - 2.6 mg/dL | [facility] | | | LASMA [...] [facility] | [address] | [place] [address] | | | ELIN, NATALEE | [address]ILMA [...] | | | LABORATORY | | | FINNISH | | | SERVICES, | | | [...] HOSPITAL | [address] | [place] [address] | | | SERVICES, CORE | VILMA [...] | + + + + + | [facility] | [address] | [place] [address] | | | NATALEE WORTHINGTON | VILMA [...] [facility] | [address] | [place] [address] | | | SERVICES, CORE | [address]ARK [...] | | | LABORATORY | | | FINNISH | | | SERVICES, | | | [...] | + + + + + | [facility] | [address] | [place] [address] | | | SERVICES, CORE | VILMA [...] [facility] | [address] | [place] [address] | | | SERVICES, CORE | [address] | | | + + + + + X-RAY ABD LTD FEEDING TUBE EVAL (09/10/2017 12:44 PM PDT) + + | Specimen | + + | | + + + + + | Narrative | Performed At | + + + | INDICATION: DHT placement TECHNIQUE: Upright portable view of | [facility] | | the upper [...] | | + +---------+ + + | [facility] | | | [...] Note | + + | Service Account, Tunii In Interface - 09/10/2017 2:31 PM PDT [...] [facility] | [address] | [place] [address] | | | SERVICES, CORE | VILMA [...] | + + + + + | [facility] | [address] | [place] [address] | | | SERVICES, CORE | [address]ARK [...] | + + + + + | [facility] | [address] | [place] [address] | | | SERVICES, CORE | PARK [...] [facility] | [address] | [place] [address] | | | SERVICES, NATALEE | VILMA [...] | | | LABORATORY | | | FINNISH | | | SERVICES, | | | [...] | + + + + + | [facility] | [address] | [place] [address] | | | SERVICES, CORE | VILMA [...] DEPT OF | [address] | [place], [place] | | | CARDIOLOGY | [address] | [address] | | + + + + + [...] P[facility] | [address] | [place], [place] | | | GLORIA GENAO OF CARE | [address] | [address] | | | TESTS | | | [...] [facility] | [address] | [place] [address] | | | SERVICES, CORE | PARK [...] 09/06/2107 | LABORATORY | | | NATALEE WORTHINGOTN | + + + + + + + + | Performing | Address | City/State/Zipcode | Phone Number | | Organization | | | | + + + + + | [facility] | [address] | [place] [address] | | | NATALEE WORTHINGTON | VILMA [...] | | | LABORATORY | | | FINNISH | | | SERVICES, | | | [...] | + + + + + | [facility] | [address] | [place] [address] | | | SERVICES, CORE | VILMA [...] [facility] | [address] | [place] [address] | | | NATALEE WORTHINGTON | VILMA [...] | | | LABORATORY | | | FINNISH | | | SERVICES, | | | [...] [facility] | [address] | [place] [address] | | | SERVICES, CORE | VILMA [...] [facility] | [address] | [place] [address] | | | SERVICES, CORE | [address] [...] | + + + + + | [facility] | [address] | [place] [address] | | | SERVICES, CORE | VILMA [...] | | + +---------+ + + | [facility] | | | [...] | + + + + + | [facility] | [address] | [place], [place] | | | CARDIOLOGY | [address] | [address] | | + + + + + [...] | | + +---------+ + + | [facility] | | | [...] [facility] | [address] | [place] [address] | | | SERVICES, CORE | [address] [...] | | | LABORATORY | | | FINNISH | | | SERVICES, | | | [...] | + + + + + | [facility] | [address] | [place] [address] | | | SERVICES, CORE | [address] | | | + + + + + MAGNESIUM, PLASMA (09/07/2017 1:00 AM PDT) + +-------+ + + + | Component | Value | Ref Range | Performed | Pathologist | | | | | At | Signature | + +-------+ + + + | MAGNESIUM,P | 1.8 | 1.6 - 2.6 mg/dL | [facility] [...] [facility] | [address] | [place] [address] | | | SERVICES, NATALEE | VILMA [...] GEET OF | [address] | [place], [place] | | | CARDIOLOGY | [address] | [id number] | | + + + + + [...] | | | attempt. Midline lot number [id number]; there was positive blood | | | [...] | | | LABORATORY | | | FINNISH | | | SERVICES, | | | [...] | + + + + + | [facility] | [address] | [place] [address] | | | SERVICES, NATALEE | VILMA [...] [facility] | [address] | [place] [address] | | | SERVICES, CORE | PARK [...] | + + + + + | [facility] | [address] | [place] [address] | | | SERVICES, CORE | [address] | | | + + + + + MAGNESIUM, PLASMA (09/05/2017 3:54 AM PDT) + +-------+ + + + | Component | Value | Ref Range | Performed | Pathologist | | | | | At | Signature | + +-------+ + + + | MAGNESIUM,P | 1.8 | 1.6 - 2.6 mg/dL | [facility] | [address] | [place] [address] | | | NATALEE [place] | VILMA [...] | | | LABORATORY | | | FINNISH | | | SERVICES, | | | [...] | + + + + + | [facility] | [address] | [place] [address] | | | SERVICES, CORE | VILMA DAEV | | | + + + + [...] | | | LABORATORY | | | FINNISH | | | SERVICES, | | | [...] | + + + + + | [facility] | [address] | [place] [address] | | | SERVICES, CORE | VILMA [...] tomorrow morning. CB Henson Pager / ID: [phone] | | + + + CULTURE, SPUTUM [...] + | [facility] | [address] | [place] [address] | | | [place] | | | [...] [facility] | [address] | [place] [address] | | | SERVICES, CORE | VILMA [...] | [facility] | | | GRAVITY | Jay Em performed by | | LABORATORY | | [...] [facility] | [address] | [place] [address] | | | SERVICES, CORE | PARK [...] [facility] | [address] | [place] [address] | | | SERVICES, NATALEE | VILMA [...] [facility] | [address] | [place] [address] | | | SERVICES, CORE | VILMA [...] DEPT OF | [address] | [place], [place] | | | CARDIOLOGY | [address] | [id number] | | + + + + + [...] | + + + + + | [facility] | [address] | [place] [address] | | | SERVICES, CORE | VILMA [...] [facility] | [address] | [place] [address] | | | SERVICES, CORE | VILMA [...] | | | LABORATORY | | | FINNISH | | | SERVICES, | | | [...] | + + + + + | [facility] | [address] | [place] [address] | | | SERVICES, CORE | VILMA [...] | + + + + + | [facility] | [address] | [place] [address] | | | SERVICES, CORE | VILMA [...] (H) | 70 - 99 mg/dL | [facility] - | | | [...] [facility] | [address] | [place], [place] | | | GLORIA GENAO OF CARE | [address] | [address] | | | TESTS | | | [...] [facility] | [address] | [place], [place] | | | GLORIA GENAO OF [employer] | [facility] | [address] | | | TESTS | | | [...] [facility] | [address] | [place], [place] | | | [place] POINT OF CARE | [facility] | [address] | | | TESTS | | | [...] [facility] | [address] | [place], [place] | | | GLORIA GENAO OF CARE | [address] | [address] | | | TESTS | | | [...] Note | + + | Service Account, Tunii In Interface - 09/03/2017 10:27 AM PDT [...] + | [facility] | [address] | [place] [address] | | | [place] | | | [...] [facility] | [address] | [place] [address] | | | SERVICES, CORE [...] Note | + + | Service Account, HRsoft Res In Interface - 09/03/2017 9:54 AM [...] + | [facility] | [address] | [place] [address] | | | [place] | | | [...] [facility] | [address] | [place] [address] | | | SERVICES, CORE | PARK [...] [facility] | [address] | [place] [address] | | | SERVICES, CORE | VILMA [...] | | | LABORATORY | | | FINNISH | | | SERVICES, | | | [...] (H) | 4 - 11 mmol/L | [facility] | | | GAP(ALB [...] [facility] | [address] | [place] [address] | | | SERVICES, CORE | VILMA [...] | + + + + + | [facility] | [address] | [place] [address] | | | SERVICES, CORE | [address] | | | + + + + + OPERATION RECORD (09/02/2017 6:53 PM PDT) + + | Procedure Note | + + | Cook, Fidelina R, MD - 09/02/2017 6:53 PM PDT Date of Service: 09/02/2017 | | Attending Surgeon: Fidelina Shields MD Marketing Researcher(s): | | Ajay Garcia MD, resident. Preoperative [...] 09/02/2017 18:15:29DT: 09/02/2017 18:53:52Job #: | | [id number] to federal Medicare and Medicaid regulations I was present for | | the entire procedure.Fidelina Shields MDAssistant ProfessorDepartment of SurgeryOffice: | | [phone]: [id number] has been electronically signed by Fidelina Shields MD, | | 09/03/2017 at 9:11 AM. | | | | | |Fidelina Shields MD | |Retail Personal Banker | |Department of Surgery | |Office: [phone] | |Pager: [phone] | | | |This has been electronically [...] [facility] | [address] | [place] [address] | | | SERVICES, CORE | VILMA [...] [facility] | [address] | [place] [address] | | | SERVICES, CORE | PARK [...] detected | AIRPORT - | | | [place] | + + + + + + + + | Performing | Address | City/State/Zipcode | Phone Number | | Organization | | | | + + + + + | [facility] | [address] | [place] [address] | | | [place] | | | | + + + [...] [facility] | [address] | [place] [address] | | | SERVICES, CORE | PARK [...] | | | LABORATORY | | | FINNISH | | | SERVICES, | | | [...] the MDRD equation recommended by the | [facility] | | National Kidney [...] | + + + + + | [facility] | [address] | [place] [address] | | | NATALEE WORTHINGTON | VILMA [...] Note | + + | Service Account, Tunii In Interface - 09/02/2017 4:25 PM PDT [...] | | contact: INGRID Garcia, R4 Surgery [phone] Pursuant | | | to federal Medicare and Medicaid regulations I was present for the | | | entire procedure. Fidelina Shields MD Retail Personal Banker | | | Department of Surgery Office: [phone] Pager: [phone] This has | | | been electronically [...] [facility] | [address] | [place] [address] | | | SERVICES, CORE | PARK [...] | + + + + + | [facility] | [address] | [place] [address] | | | SERVICES, [facility] | [address] | | | + + + + + OPERATION RECORD (09/02/2017 6:51 AM PDT) + ---+ | Procedure Note | + ---+ | Fidelina Shields MD - 09/02/2017 6:51 AM PDT Date of Service: 09/01/2017 | | Attending Surgeon: Fidelina Shields MD Marketing Researcher(s): Haim Peralta MD. | | Ajay Garcia [...] 09/02/2017 06:17:53DT: 09/02/2017 | | 06:51:37Job #: [id number] to federal Medicare and Medicaid regulations I | | was present for the entire procedure.Fidelina Tenorio ProfessorDepartment of | | SurgeryOffice: [phone]: [id number] has been electronically signed by Fidelina Radford | MD Cornelius, 09/02/2017 at 10:40 AM. | | | | | |Pursuant to federal Medicare and Medicaid regulations I was present for the entire procedur e. | | | | | | | |Fidelina Shields MD | |Retail Personal Banker | |Department of Surgery | |Office: [phone] | |Pager: [phone] | | | |This has been electronically [...] | + + + + + | [facility] | [address] | [place] [address] | | | SERVICES, CORE | IVLMA [...] [facility] | [address] | [place] [address] | | | SERVICES, CORE | PARK [...] + + + + | PRODUCT | [id number] | | [facility] | | | UNIT [...] + + + + | EXPIRATION | [id number] | | [facility] | | | DATE [...] + + + + | BLOOD | [id number] | | [facility] | | | PRODUCT [...] [facility] | [address] | [place] [address] | | | SERVICES, | [address] [...] | + + + + + | [facility] | [address] | [place] [address] | | | SERVICES, CORE | VILMA [...] | | | LABORATORY | | | FINNISH | | | SERVICES, | | | [...] [facility] | [address] | [place] [address] | | | SERVICES, CORE | VILMA [...] [facility] | [address] | [place] [address] | | | SERVICES, CORE | VILMA [...] | | | | INFORMATION: | | [facility] | | | | QuantiFERON-TB Gold | [...] (http://www.cdc.gov/mmwr | | | | | | [email or web address] | | | | | | [email or web address]), [...] [facility] - | | | | by [employer], | | AIRPORT - | | | | | | [place] | | | | [address] | | | | | | [facility] | | | | | | [address] | | | | | | | | | | | | www.[employer]ral [employer], Gui | | | | | | [...] + | [facility] | [address] | [place] [address] | | | [place] | | | [...] HOSPITAL | [address] | [place] [address] | | | SERVICES, CORE | PARK [...] [facility] | [address] | [place] [address] | | | ELIN, NATALEE | VILMA [...] | | + +---------+ + + | [facility] | | | | | VOICE RECOGNITION | | | | + +---------+ + + X-RAY PORTABLE CHEST 1 VIEW (09/01/2017 6:14 PM PDT) + + | Specimen | + + | | + + + + + | Narrative | Performed At | + + + | EXAM: [place] CHEST 1 VIEW HISTORY: Hypoxemia COMPARISON: 09/01/17 | [facility] | | FINDINGS: The endotracheal tube, [...] | + + + + + | [facility] | [address] | [place] [address] | | | SERVICES, CORE | PARK [...] (L) | 41.0 - 53.0 % | [facility] | | | | | [...] | [facility] | [address] | [place] [address] | | | SERVICES, CORE | VILMA [...] + + + + | PRODUCT | [id number] | | [facility] | | | UNIT [...] + + + + | EXPIRATION | [id number] | | [facility] | | | DATE [...] + + + + | BLOOD | [id number] | | [facility] | | | PRODUCT [...] [facility] | [address] | [place] [address] | | | SERVICES, | [address] [...] [facility] | [address] | [place] [address] | | | SERVICES, CORE | PARK [...] [facility] | [address] | [place] [address] | | | SERVICESNATALEE | [address] [...] | [facility] | [address] | [place] [address] | | | SERVICES, CORE | VILMA [...] | | | LABORATORY | | | FINNISH | | | SERVICES, | | | [...] | + + + + + | [facility] | [address] | [place] [address] | | | NATALEE WORTHINGTON | VILMA [...] + | [facility] | [address] | [place] [address] | | | SERVICES, CORE | VILMA [...] | + + + + + | [facility] | [address] | [place] [address] | | | NATALEE WORTHINGTON | [address] [...] micropuncture access set was exchanged for a [employer] wire. Under | | | fluoroscopic guidance, a 5 Fr flush catheter was used to evaluate the | | | distal abdominal aorta and pelvic vasculature. A wire and catheter | | | were then used to select the left common and internal iliac arteries | | | from the right IRON ERECTOR approach. DSA was performed from the left [...] Hubbard MD, PhDIR Fellow: | | George Shha Fellow: Trey Thomas MDPreoperative diagnosis: pelvic trauma, [...] micropuncture access set was exchanged for a [employer] wire. Under fluoroscopic guidance, | | a 5 Fr flush catheter was used to evaluate the distal abdominal aorta and pelvic | | vasculature. A wire and catheter were then used to select the left common and internal | | iliac arteries from the right IRON ERECTOR approach. DSA was performed from the left [...] micropuncture access set was exchanged for a [employer] wire. Under fluoroscopic guidance, a 5 Fr flush catheter was used | |to evaluate the distal abdominal aorta and pelvic vasculature. A wire and catheter were th en used to select the left common and internal iliac arteries from the right IRON ERECTOR approach. DSA was performed from the left [...] [facility] | | | | | | GLROIA GENAO | | [...] [facility] | [address] | [place], [place] | | | GLORIA GENAO OF GM | [address] | [address] | | | TESTS | | | | + + + + + EXPLORATORY LAPAROTOMY (09/01/2017 12:31 PM PDT) + + + | Narrative | Performed At | + + + | Fidelina Shields MD 09/01/2017 12:42 PM BRIEF OPERATIVE NOTE: | | | Date: 09/01/2017 Author: Fidelina Shields MD | | | Attending Physician: Fidelina Shields MD Marketing Researcher(s): Haim Peralta | | | , Vicente Garcia MD, [facility] Prior to the | | | [...] case. | | | Fidelina Shields MD Retail Personal Banker Division of Trauma, | | | Critical Care and Acute Care Surgery Office: [phone] Pager: [phone] | | + + + ABG-FULL ABL, [...] [facility] | [address] | [place] | | | GLORIA GENAO [employer] | [address] | [address] | | | TESTS | | | [...] [facility] | [address] | [place] [address] | | | SERVICES, CORE | VILMA [...] [facility] | [address] | [place], [place] | | | [facility] | [facility] | [address] | | | TESTS | | | [...] + + + + | PRODUCT | [id number] | | [facility] | | | UNIT [...] + + + + | EXPIRATION | [id number] | | [facility] | | | DATE [...] + + + + | BLOOD | [id number] | | [facility] | | | PRODUCT [...] [facility] | [address] | [place] [address] | | | SERVICES, | [address] [...] + + + + | PRODUCT | [id number] | | [facility] | | | UNIT [...] + + + + | EXPIRATION | [id number] | | [facility] | | | DATE [...] + + + + | BLOOD | [id number] | | [facility] | | | PRODUCT [...] LABORATORY | [address] | [place] [address] | | | SERVICES, | [address] [...] + + + + | PRODUCT | [id number] | | [facility] | | | UNIT [...] + + + + | EXPIRATION | [id number] | | [facility] | | | DATE [...] + + + + | BLOOD | [id number] | | [facility] | | | PRODUCT [...] + | [facility] | [address] | [place] [address] | | | SERVICES, | [address] [...] + + + + | PRODUCT | [id number] | | [facility] | | | UNIT [...] + + + + | EXPIRATION | [id number] | | [facility] | | | DATE [...] + + + + | BLOOD | [id number] | | [facility] | | | PRODUCT [...] [facility] | [address] | [place] [address] | | | SERVICES, | [address] [...] + + + + | PRODUCT | [id number] | | [facility] | | | UNIT [...] + + + + | EXPIRATION | [id number] | | [facility] | | | DATE [...] + + + + | BLOOD | [id number] | | [facility] | | | PRODUCT [...] | + + + + + | [facility] | [address] | [place] [address] | | | SERVICES, | [address] [...] + + + + | PRODUCT | [id number] | | [facility] | | | UNIT [...] + + + + | EXPIRATION | [id number] | | [facility] | | | DATE [...] + + + + | BLOOD | [id number] | | [facility] | | | PRODUCT [...] [facility] | [address] | [place] [address] | | | SERVICES, | [address] [...] + + + + | PRODUCT | [id number] | | [facility] | | | UNIT [...] + + + + | EXPIRATION | [id number] | | [facility] | | | DATE [...] + + + + | BLOOD | [id number] | | [facility] | | | PRODUCT [...] [facility] | [address] | [place] [address] | | | SERVICES, | [address] [...] + + + + | PRODUCT | [id number] | | [facility] | | | UNIT [...] + + + + | EXPIRATION | [id number] | | [facility] | | | DATE [...] + + + + | BLOOD | [id number] | | [facility] | | | PRODUCT [...] [facility] | [address] | [place] [address] | | | SERVICES, | [address] [...] + + + + | PRODUCT | [id number] | | [facility] | | | UNIT [...] + + + + | EXPIRATION | [id number] | | [facility] | | | DATE [...] + + + + | BLOOD | [id number] | | [facility] | | | PRODUCT [...] [facility] | [address] | [place] [address] | | | SERVICES, | [...] + + + + | PRODUCT | [id number] | | [facility] | | | UNIT [...] + + + + | EXPIRATION | [id number] | | [facility] | | | DATE [...] + + + + | BLOOD | [id number] | | [facility] | | | PRODUCT [...] [facility] | [address] | [place] [address] | | | SERVICES, | [address] [...] + + + + | PRODUCT | [id number] | | [facility] | | | UNIT [...] + + + + | EXPIRATION | [id number] | | [facility] | | | DATE [...] + + + + | BLOOD | [id number] | | [facility] | | | PRODUCT [...] [facility] | [address] | [place] [address] | | | SERVICES, | [address] [...] + + + + | PRODUCT | [id number] | | [facility] | | | UNIT [...] + + + + | EXPIRATION | [id number] | | [facility] | | | DATE [...] + + + + | BLOOD | [id number] | | [facility] | | | PRODUCT [...] [facility] | [address] | [place] [address] | | | SERVICES, | [address] [...] + + + + | PRODUCT | [id number] | | [facility] | | | UNIT [...] + + + + | EXPIRATION | [id number] | | [facility] | | | DATE [...] + + + + | BLOOD | [id number] | | [facility] | | | PRODUCT [...] [facility] | [address] | [place] [address] | | | SERVICES, | [address] [...] + + + + | PRODUCT | [id number] | | [facility] | | | UNIT [...] + + + + | EXPIRATION | [id number] | | [facility] | | | DATE [...] + + + + | BLOOD | [id number] | | [facility] | | | PRODUCT [...] [facility] | [address] | [place] [address] | | | SERVICES, | [address] [...] + + + + | PRODUCT | [id number] | | [facility] | | | UNIT [...] + + + + | EXPIRATION | [id number] | | [facility] | | | DATE [...] + + + + | BLOOD | [id number] | | [facility] | | | PRODUCT [...] | + + + + + | [facility] | [address] | [place] [address] | | | SERVICES, | [address] [...] + + + + | PRODUCT | [id number] | | [facility] | | | UNIT [...] + + + + | EXPIRATION | [id number] | | [facility] | | | DATE [...] + + + + | BLOOD | [id number] | | [facility] | | | PRODUCT [...] [facility] | [address] | [place] [address] | | | SERVICES, | [address] [...] + + + + | PRODUCT | [id number] | | [facility] | | | UNIT [...] + + + + | EXPIRATION | [id number] | | [facility] | | | DATE [...] + + + + | BLOOD | [id number] | | [facility] | | | PRODUCT [...] [facility] | [address] | [place] [address] | | | SERVICES, | [address] [...] + + + + | PRODUCT | [id number] | | [facility] | | | UNIT [...] + + + + | EXPIRATION | [id number] | | [facility] | | | DATE [...] + + + + | BLOOD | [id number] | | [facility] | | | PRODUCT [...] | + + + + + | [facility] | [address] | [place] [address] | | | SERVICES, | [address] [...] + + + + | PRODUCT | [id number] | | [facility] | | | UNIT [...] + + + + | EXPIRATION | [id number] | | [facility] | | | DATE [...] + + + + | BLOOD | [id number] | | [facility] | | | PRODUCT [...] [facility] | [address] | [place] [address] | | | SERVICES, | [address] [...] + + + + | PRODUCT | [id number] | | [facility] | | | UNIT [...] + + + + | EXPIRATION | [id number] | | [facility] | | | DATE [...] + + + + | BLOOD | [id number] | | [facility] | | | PRODUCT [...] [facility] | [address] | [place] [address] | | | SERVICES, | [address] [...] + + + + | PRODUCT | [id number] | | [facility] | | | UNIT [...] + + + + | EXPIRATION | [id number] | | [facility] | | | DATE [...] + + + + | BLOOD | [id number] | | [facility] | | | PRODUCT [...] [facility] | [address] | [place] [address] | | | SERVICES, | [address] [...] + + + + | PRODUCT | [id number] | | [facility] | | | UNIT [...] + + + + | EXPIRATION | [id number] | | [facility] | | | DATE [...] + + + + | BLOOD | [id number] | | [facility] | | | PRODUCT [...] [facility] | [address] | [place] [address] | | | SERVICES, | [address] [...] + + + + | PRODUCT | [id number] | | [facility] | | | UNIT [...] + + + + | EXPIRATION | [id number] | | [facility] | | | DATE [...] + + + + | BLOOD | [id number] | | [facility] | | | PRODUCT [...] [facility] | [address] | [place] [address] | | | SERVICES, | [address] [...] + + + + | PRODUCT | [id number] | | [facility] | | | UNIT [...] + + + + | EXPIRATION | [id number] | | [facility] | | | DATE [...] + + + + | BLOOD | [id number] | | [facility] | | | PRODUCT [...] [facility] | [address] | [place] [address] | | | SERVICES, | [address] [...] + + + + | PRODUCT | [id number] | | [facility] | | | UNIT [...] + + + + | EXPIRATION | [id number] | | [facility] | | | DATE [...] + + + + | BLOOD | [id number] | | [facility] | | | PRODUCT [...] [facility] | [address] | [place] [address] | | | SERVICES, | [address] [...] + + + + | PRODUCT | [id number] | | [facility] | | | UNIT [...] + + + + | EXPIRATION | [id number] | | [facility] | | | DATE [...] + + + + | BLOOD | [id number] | | [facility] | | | PRODUCT [...] | + + + + + | [facility] | [address] | [place] [address] | | | SERVICES, | [address] [...] [facility] | [address] | [place] [address] | | | SERVICES, CORE | PARK [...] | | | LABORATORY | | | FINNISH | | | SERVICES, | | | [...] the MDRD equation recommended by the | [facility] | | National Kidney [...] | + + + + + | [facility] | [address] | [place] [address] | | | ELIN, NATALEE | PARK [...] [facility] | [address] | [place] [address] | | | NATALEE WORTHINGTON | VIL[address] [...] | | | | | | GLORIA EGNAO | | [...] [facility] | [address] | [place], [place] | | | GLORIA GENAO OF [employer] | [address] | [address] | | | TESTS | | | [...] | | + +---------+ + + | [facility] | | | [...] + + + + | PRODUCT | [id number] | | [facility] | | | UNIT [...] + + + + | EXPIRATION | [id number] | | [facility] | | | DATE [...] + + + + | BLOOD | [id number] | | [facility] | | | PRODUCT [...] [facility] | [address] | [place] [address] | | | SERVICES, | [address] [...] + + + + | PRODUCT | [id number] | | [facility] | | | UNIT [...] + + + + | EXPIRATION | [id number] | | [facility] | | | DATE [...] + + + + | BLOOD | [id number] | | [facility] | | | PRODUCT [...] LABORATORY | [address] | [place] [address] | | | SERVICES, | [address] [...] + + + + | PRODUCT | [id number] | | [facility] | | | UNIT [...] + + + + | EXPIRATION | [id number] | | [facility] | | | DATE [...] + + + + | BLOOD | [id number] | | [facility] | | | PRODUCT [...] | + + + + + | [facility] | [address] | [place] [address] | | | SERVICES, | [...] + + + + | PRODUCT | [id number] | | [facility] | | | UNIT [...] + + + + | EXPIRATION | [id number] | | [facility] | | | DATE [...] + + + + | BLOOD | [id number] | | [facility] | | | PRODUCT [...] [facility] | [address] | [place] [address] | | | SERVICES, | [address] [...] + + + + | PRODUCT | [id number] | | [facility] | | | UNIT [...] + + + + | EXPIRATION | [id number] | | [facility] | | | DATE [...] + + + + | BLOOD | [id number] | | [facility] | | | PRODUCT [...] [facility] | [address] | [place] [address] | | | SERVICES, | [address] [...] + + + + | PRODUCT | [id number] | | [facility] | | | UNIT [...] + + + + | EXPIRATION | [id number] | | [facility] | | | DATE [...] + + + + | BLOOD | [id number] | | [facility] | | | PRODUCT [...] | [facility] | [address] | [place] [address] | | | SERVICES, | [address] [...] + + + + | PRODUCT | [id number] | | [facility] | | | UNIT [...] + + + + | EXPIRATION | [id number] | | [facility] | | | DATE [...] + + + + | BLOOD | [id number] | | [facility] | | | PRODUCT [...] | + + + + + | [facility] | [address] | [place] [address] | | | SERVICES, | [address] [...] + + + + | PRODUCT | [id number] | | [facility] | | | UNIT [...] + + + + | EXPIRATION | [id number] | | [facility] | | | DATE [...] + + + + | BLOOD | [id number] | | [facility] | | | PRODUCT [...] [facility] | [address] | [place] [address] | | | SERVICES, | [address] [...] Note | + + | Service Account, HRsoft Res In Interface - 09/01/2017 9:01 AM [...] | | + +---------+ + + | [facility] | | | [...] + + + + | PRODUCT | [id number] | | [facility] | | | UNIT [...] + + + + | EXPIRATION | [id number] | | [facility] | | | DATE [...] + + + + | BLOOD | [id number] | | [facility] | | | PRODUCT [...] [facility] | [address] | [place] [address] | | | SERVICES, | [address] [...] + + + | [facility] | [address] | [place] [address] | | | SERVICES, CORE | VILMA [...] | + + + + + | [facility] | [address] | [place] [address] | | | SERVICES, CORE | [address] [...] Discussed with | | | trauma ICU dental intern by Dr. Yang at 4:38 AM. I have | | | personally reviewed the images and, if necessary, edited the report. | | | I agree with the report as now presented. | | + + + + + | Procedure Note | + + | Service Account, HRsoft Res In Interface - 09/01/2017 10:10 AM [...] interspinous ligament is injured.Discussed with trauma ICU dental intern | | by Dr. Yang at 4:38 AM.I have personally reviewed the images and, if necessary, | | edited the report. I agree with the report as now presented. | |3. Extensive soft tissue edema extending into the cervical and upper thoracic interspinous space, suggestive of interspinous ligament is injured. | | | |Discussed with trauma ICU dental intern by Dr. Yang at 4:38 AM. [...] | | | LABORATORY | | | FINNISH | | | SERVICES, | | | [...] | [facility] | [address] | [place] [address] | | | ELIN, NATALEE | [facility] [...] [facility] | [address] | [place] [address] | | | SERVICES, CORE | [facility] | [address] | [place] [address] | | | SERVICES, CORE | VILMA [...] | + + + + + | [facility] | [address] | [place] [address] | | | SERVICES, CORE | VILMA [...] pleural spaced was performed. A 32 size Tongan chest tube was | | | placed [...] | ventricles. Discussed with the trauma ICU dental intern at 12:12 AM by | | [...] ventricles.Discussed with | | the trauma ICU dental intern at 12:[address] Yang.I [...] | | |Discussed with the trauma ICU dental intern at 12:[address] Yang. [...] + + + | [facility] | [address] | [place], [place] | | | [place] | [facility] | [address] | | | TESTS | | | [...] [facility] | [address] | [place] [address] | | | SERVICES, CORE | [facility] [...] [facility] | [address] | [place] [address] | | | SERVICES, [facility] | [address] | | | + + + + + X-RAY SHOULDER 2 VIEWS LEFT (08/31/2017 8:56 PM PDT) + + | Specimen | + + | | + + + + + | Narrative | Performed At | + + + | EXAM: SHOULDER 2 VIEWS, ELBOW 2 VIEWS, HUMERUS 2 VIEWS LEFT 08/31/17 | [facility] | | HISTORY: Trauma, pain. COMPARISON: [...] [facility]LE[facility] MCNAIR | [address] | [place] [address] | | | SERVICES, CORE | VILMA [...] | + + + + + | [facility] | [address] | [place] [address] | | | SERVICES, NATALEE | VILMA [...] Note | + + | Service Account, Tunii In Interface - 08/31/2017 8:22 PM PDT [...] Note | + + | Service Account, [employer] In Interface - 09/01/2017 10:12 AM PDT [...] rib, nondisplaced-Left | | 1st rib fracture, zfvvbbochcbr-Col-moranyfpf left lateral 8th rib fracture-T12 fracture | [...] findings discussed with Dr. Shaw by Dr. Madrgial at 7:10 pm on 08/31/17. Final resu [...] LABORATORY | [address] | [place] [address] | | | SERVICES, | [address] [...] | + + + + + | [facility] | [address] | [place] [address] | | | SERVICES, | [address] [...] | + + + + + | [facility] | [address] | [place] [address] | | | ELIN | [address] [...] 5.4 | 5 - 10 Minutes | [facility] - | | | CITRATED | | [...] [facility] | [address] | [place], [place] | | | [facility] | [address] | [address] | | | TESTS | | | [...] - [facility] | [address] | [place], [place] | | | GLORIA GENAO OF GM | [facility] | [address] | | | TESTS | | | [...] [facility] | [address] | [place], [place] | | | GLORIA GENAO OF CARE | [facility] | [address] | | | TESTS | | | [...] + + | [facility] | [address] | [place], [place] | | | GLORIA GENAO OF [facility] | [address] | [address] | | | TESTS | | | [...] + + + + | PRODUCT | [id number] | | [facility] | | | UNIT [...] + + + + | EXPIRATION | [id number] | | [facility] | | | DATE [...] + + + + | BLOOD | [id number] | | [facility] | | | PRODUCT [...] [facility] | [address] | [place] [address] | | | SERVICES, | [address] [...] + + + + | PRODUCT | [id number] | | [facility] | | | UNIT [...] + + + + | EXPIRATION | [id number] | | [facility] | | | DATE [...] + + + + | BLOOD | [id number] | | [facility] | | | PRODUCT [...] | + + + + + | [facility] | [address] | [place] [address] | | | SERVICES, | [...] + + + + | PRODUCT | [id number] | | [facility] | | | UNIT [...] + + + + | EXPIRATION | [id number] | | [facility] | | | DATE [...] + + + + | BLOOD | [id number] | | [facility] | | | PRODUCT [...] | + + + + + | [facility] | [address] | [place] [address] | | | SERVICES, | [address] [...] + + + + | PRODUCT | [id number] | | [facility] | | | UNIT [...] + + + + | EXPIRATION | [id number] | | [facility] | | | DATE [...] + + + + | BLOOD | [id number] | | [facility] | | | PRODUCT [...] [facility] | [address] | [place] [address] | | | SERVICES, | [address] [...] + + + + | PRODUCT | [id number] | | [facility] | | | UNIT [...] + + + + | EXPIRATION | [id number] | | [facility] | | | DATE [...] + + + + | BLOOD | [id number] | | [facility] | | | PRODUCT [...] [facility] | [address] | [place] [address] | | | SERVICES, | [address] [...] + + + + | PRODUCT | [id number] | | [facility] | | | UNIT [...] + + + + | EXPIRATION | [id number] | | [facility] | | | DATE [...] + + + + | BLOOD | [id number] | | [facility] | | | PRODUCT [...] [facility] | [address] | [place] [address] | | | SERVICES, | [address] [...] + + + + | PRODUCT | [id number] | | [facility] | | | UNIT [...] + + + + | EXPIRATION | [id number] | | [facility] | | | DATE [...] + + + + | BLOOD | [id number] | | [facility] | | | PRODUCT [...] [facility] | [address] | [place] [address] | | | SERVICES, | [address] [...] + + + + | PRODUCT | [id number] | | [facility] | | | UNIT [...] + + + + | EXPIRATION | [id number] | | [facility] | | | DATE [...] + + + + | BLOOD | [id number] | | [facility] | | | PRODUCT [...] [facility] | [address] | [place] [address] | | | SERVICES, | [address] [...] | + + + + + | [facility] | [address] | [place] [address] | | | SERVICES, CORE | [address] [...] | | | LABORATORY | | | FINNISH | | | SERVICES, | | | [...] | [facility] | [address] | [place] [address] | | | SERVICES, CORE | [address] [...] [facility] | [address] | [place] [address] | | | SERVICES, CORE | [address] | | | + + + + + ETHANOL (ALCOHOL), BLOOD (08/31/2017 4:50 PM PDT) + +--------+ + + + | Component | Value | Ref Range | Performed | Pathologist | | | | | At | Signature | + +--------+ + + + | ETHANOL | 41 (H) | <10 mg/dL | [facility] | | | (ALCOHOL) | | | [...] [facility] | [address] | [place] [address] | | | SERVICES, CORE | [address] [...] [facility] | [address] | [place] [address] | | | ELIN, NATALEE | [address] [...] | + + + + + | [facility] | [address] | [place] [address] | | | SERVICES, CORE | [address] [...]
--- OUTSIDE RECORDS SUMMARY | ~2019-04-04 | XMS | Encounter Summary ---
Demographics + + + | Address | [address] | | | [place] [address] | + + + | Home Phone [...] Author | [facility] | + + + | Organization | [facility] | + + + | Address | Unknown | + + + | Phone | Unavailable | + + + Support + + +---------+ + | Name | Relationship | Address | Phone | + + +---------+ + | Kaylie Baig | ECON | Unknown | | + + +---------+ + Care Team Providers + +------+ + | Care Health Plan Specialist Name | Role | Phone | [...] Pharmacy | | | | | | [address] | | | | | | [place], | | | | | | [place] [address] | | | | | | [phone] | | | +--------+ + + + [...]
--- OUTSIDE RECORDS SUMMARY | ~2019-04-04 | XMS | Encounter Summary ---
Demographics + + + | Address | [address] | | | [place] [address] | + + + | Home Phone [...] Author | [facility] [employer] [facility] | + + + | Organization | [facility] [employer] [facility] | [...] Team Providers + +------+ + | Care Steel Heater Name | Role | Phone | [...] UPPER ENDOSCOPY, | | 2017 | | [facility] | MD [address] | | | | | Admitting Desk | [address] | | | | | Located on the | [place], [place] | | | | | [facility] [address] | [address] | | | | | [address] | [phone] | | | | | [place], [place] | | | | | | [address] | | | +--------+---------+ + + + [...] ifferent from the original. [facility] [employer] [place] Discharge Summary Discharging Provider: KESHAWN Martin Admitting [...] risk for aspiration # nutrition - NPO, FOOD BEVERAGE ATTENDANT evaluating patient when out of c collar [...] - Neurosurgery following peripherally - Must wear DATABASE MANAGER when OOB, ok for C-collar only when in bed - 12 week collar period up on 11/23, Neurosurgery documented C collar/DATABASE MANAGER weaning protocol o gloria next 5 weeks- [...] DC. He will need home health PT/ OT/FOOD BEVERAGE ATTENDANT, which will not be arranged until next [...] None required Recommended rehabilitation therapies: Home health PT/OT/FOOD BEVERAGE ATTENDANT Discharge Medications: Medication List START taking these [...] arrange mental health follow up in your our community hospital for follow up in 2-4 [...] that I, or Nurse Practitioner or Physician Valet Parker working with me, had a face to face encounter with this patient on 12/06/2017 On behalf of Attending Physician: Chaz Munoz MD I am ordering and certify that the following services are medically necessary home [facility] Physical Therapy Evaluate and Treat I am ordering and certify that the following services are medically necessary [facility] Occupational Therapy Evaluate and Treat I am ordering and certify that the following services are medically necessary [facility] Speech Language Pathology Evaluate and Treat I am ordering and certify that the following services are medically necessary home [facility] VEST PRESSER Evaluate and Treat I certify that the patient is homebound based on the following clinical findings Post-hospi rakesh weakness, decreased strength and endurance, and tires easily with minimal exertion Follow Up: Schedule the following appointment(s) when you get home Call [facility] TRAUMA PPV. Why: As needed with questions, not mandatory Contact information [address] [facility] [address] Primary care provider. Schedule an [...] AGACNP Discharging Surgeon : Magali Elias MD [facility] Division of Acute Care Surgery/Critical Care [address] [place] [address] [id number] signed by Magali Elias MD,MPH at 12/09/2017 [...] EOMI Neck: weaning cervical aspen collar & DATABASE MANAGER per NSG weaning protocol Respiratory: unlabored [...] Started bolus tube feeds 11/23: Begun C collar/DATABASE MANAGER weaning 11/28: Psychiatry re-consulted for behavioral [...] risk for aspiration # nutrition - NPO, FOOD BEVERAGE ATTENDANT evaluating patient when out of c collar [...] - Neurosurgery following peripherally - Must wear DATABASE MANAGER when OOB, ok for C-collar only when in bed - 12 week collar period up on 11/23, Neurosurgery documented C collar/DATABASE MANAGER weaning protocol o gloria next 5 weeks- [...] obic coverage Disposition: continue tube feeds, continue FOOD BEVERAGE ATTENDANT evals while c collar off. Started depakote f or agitation with good response. Girlfriend Magali will be visiting today, this is ok per his sister Annita (see social work note). Sherine Sarmiento, [facility] [place] [phone] [facility] & [facility] [address] [address] [phone] Associated attestation - Magali Elias MD,MPH - 12/05/2017 12:59 PM PDTI was present and rounded with the ANP Sherine Sarmiento today. I interviewed and examined the patient. I reviewed the history, as documented today. I participated in the development of and agree wi th the assessment and plan. Ongoing therapy; continues with improved compliance and impulsiv eness. Sherine Sarmiento [facility] - 12/04/2017 1:38 PM PDTFormatting of [...] less agitated overnight per nursing Remains in gifford vest Current meds: I have independently reviewed [...] EOMI Neck: weaning cervical aspen collar & DATABASE MANAGER per NSG weaning protocol Respiratory: unlabored [...] Started bolus tube feeds 11/23: Begun C collar/DATABASE MANAGER weaning 11/28: Psychiatry re-consulted for behavioral [...] risk for aspiration # nutrition - NPO, FOOD BEVERAGE ATTENDANT evaluating patient when out of c collar [...] - Neurosurgery following peripherally - Must wear DATABASE MANAGER when OOB, ok for C-collar only when in bed - 12 week collar period up on 11/23, Neurosurgery documented C collar/DATABASE MANAGER weaning protocol o gloria next 5 weeks- [...] obic coverage Disposition: continue tube feeds, continue FOOD BEVERAGE ATTENDANT evals while c collar off. Started depakote f or agitation with good initial response. [place] placement [place] adult [place] [phone] [facility] [place] [address] [phone] Associated attestation - Magali Elias MD,MPH - [...] Started bolus tube feeds 11/23: Begun C collar/DATABASE MANAGER weaning 11/28: Psychiatry re-consulted for behavioral [...] risk for aspiration # nutrition - NPO, FOOD BEVERAGE ATTENDANT evaluating patient when out of c collar [...] - Neurosurgery following peripherally - Must wear DATABASE MANAGER when OOB, ok for C-collar only when in bed - 12 week collar period up on 11/23, Neurosurgery documented C collar/DATABASE MANAGER weaning protocol o gloria next 5 weeks- [...] obic coverage Disposition: continue tube feeds, continue FOOD BEVERAGE ATTENDANT evals while c collar off. Starting depakote for agitation. Pending placement at adult foster [place] [phone] [facility] & [facility] [address] [facility] [address] [phone] Associated attestation - Magali Elias MD,MPH - [...] . Ok to resume feeds. Ad Callejas [id number] rafts, Venita Maciel PA-C - 12/02/2017 10:55 [...] Started bolus tube feeds 11/23: Begun C collar/DATABASE MANAGER weaning 11/28: Psychiatry re-consulted for behavioral [...] risk for aspiration # nutrition - NPO, FOOD BEVERAGE ATTENDANT evaluating patient when out of c collar [...] - Neurosurgery following peripherally - Must wear DATABASE MANAGER when OOB, ok for C-collar only [...] obic coverage Disposition: continue tube feeds, continue FOOD BEVERAGE ATTENDANT evals while c collar off. Optimize sleep. Venita Pruitt PA-[place] [phone] [facility] & [address] [place] [facility] [phone] Associated attestation - Magali Elias MD,MPH - [...] Started bolus tube feeds 11/23: Begun C collar/DATABASE MANAGER weaning 11/28: Psychiatry re-consulted for behavioral [...] risk for aspiration # nutrition - NPO, FOOD BEVERAGE ATTENDANT evaluating patient when out of c collar [...] - Neurosurgery following peripherally - Must wear DATABASE MANAGER when OOB, ok for C-collar only [...] obic coverage Disposition: continue tube feeds, continue FOOD BEVERAGE ATTENDANT evals while c collar off. Going back on hald ol for aggression. Optimize sleep. DIANNA CarolinaC [place] [phone] [facility] [place] [address] [address] [facility] [place] [address] Associated attestation - Shiva Nieto MD,MPH - 12/01/2017 2:17 PM PDTATTENDING ADDENDU M: I personally interviewed and examined the patient today with the trauma team and the physic gabriela assistant softball coach. I participated in the development of and agree with the assessment and plan. 1. Scheduled haloperidol BID 5mg. Plus PRN 2. Continue FOOD BEVERAGE ATTENDANT evaluation 3. Melatonin for qHS sleep Shiva Nieto MD, MPH Attending Surgeon Trauma, Critical Care & Acute Care Surgery [facility] & [facility] [phone] Monse Carrasco MD,MPH - 11/30/2017 10:43 AM [...] EOMI Neck: intermittently in aspen collar and DATABASE MANAGER Respiratory: unlabored on room air CV: [...] Started bolus tube feeds 11/23: Begun C collar/DATABASE MANAGER weaning 11/28: Psychiatry re-consulted for behavioral [...] risk for aspiration # nutrition - NPO, FOOD BEVERAGE ATTENDANT evaluating patient when out of c collar [...] - Neurosurgery following peripherally - Must wear DATABASE MANAGER when OOB, ok for C-collar only [...] obic coverage Disposition: continue tube feeds, continue FOOD BEVERAGE ATTENDANT evals while c collar off. Optimize sleep. Monse Falcon. MD Luna MPH [facility] [address] [phone] Associated attestation - Shlomo Rosenthal MD - 12/05/2017 10:55 AM PDTI saw and examined Charli Temple ([id number]) with the TRAUMA team on 11/30/2017. I agree with the assessment and plan a s outlined in this note and participated in the planning of care. I have personally reviewed all pertinent labarotory findings, radiographs, and physiologic parameters. I personally pe rformed pertinent parts of the physical examination and personally formulated the plan with the TRAUMA team. Shlomo Rosenthal MD [employer] Police Officer Division of Trauma and Critical Care [...] scalp, EOMI Neck: in aspen collar and DATABASE MANAGER Respiratory: unlabored on room air CV: [...] Started bolus tube feeds 11/23: Begun C collar/DATABASE MANAGER weaning 11/28: Psychiatry re-consulted for behavioral [...] risk for aspiration # nutrition - NPO, FOOD BEVERAGE ATTENDANT evaluating patient when out of c collar [...] - Neurosurgery following peripherally - Must wear DATABASE MANAGER when OOB, ok for C-collar only [...] obic coverage Disposition: continue tube feeds, continue FOOD BEVERAGE ATTENDANT evals and c collar weaning. Optimize sleep Monse Carrasco MD MPH [facility] [employer] [address] [place] [address] [phone] Associated attestation - Brian Painting MD - 12/08/2017 7:33 PM PDTAttending: I saw and examined Berlin Temple ([id number]) with the residents on 11/29/17 and agree with th e assessment and plan as outlined in this note and participated in the planning of care. Brian Painting MD FACS residential tech Division of Trauma, Critical Care & Acute [...] scalp, EOMI Neck: in aspen collar and DATABASE MANAGER Respiratory: unlabored on room air CV: [...] Started bolus tube feeds 11/23: Begun C collar/DATABASE MANAGER weaning 11/28: Psychiatry re-consulted for behavioral [...] risk for aspiration # nutrition - NPO, FOOD BEVERAGE ATTENDANT evaluating patient when out of c collar [...] - Neurosurgery following peripherally - Must wear DATABASE MANAGER when OOB, ok for C-collar only [...] obic coverage Disposition: continue tube feeds, continue FOOD BEVERAGE ATTENDANT evals and c collar weaning Monse Carrasco MD MPH [facility] [address] [address] [phone] Associated attestation - Brian Painting MD - 11/28/2017 11:06 PM PDTAttending: I saw and examined Berlin Temple ([id number]) with the residents on 11/28/17 and agree with e assessment and plan as outlined in this note and participated in the planning of care. Brian Painting MD FACS residential tech Division of Trauma, Critical Care & Acute Care Surgery Fernando Li PA - 11/27/2017 3:32 PM PDTFormatting of this note might be differe nt from the original. NEUROSURGERY INPATIENT PROGRESS NOTE Hospital Day: Author; FERNANDO LI PA-C Attending Physician: Chaz Munoz MD Neurosurgery: Magdiel Stock MD Interval Hx: -No events overnight -In process of DATABASE MANAGER weaning. Denies neck pain. Physical Exam: [...] Patient being managed in C collar and DATABASE MANAGER. -Patient developed drainage from previous crani [...] imary Team. -Instructions have been provided for DATABASE MANAGER weaning. -Patient's exam stable. Denies Neck pain. Repeat imaging stable. Scalp incision healing well. -Please contact our service if there are any questions or need to re-consult. -No outpatient Neurosurgery FU needed. FERNANDO LI PA-C [facility] [address] [facility] [address] [address] [address]g [phone] MEDICATIONS Current Facility-Administered Medications Medication acetaminophen (TYLENOL) [...] scalp, EOMI Neck: in aspen collar and DATABASE MANAGER Respiratory: unlabored on room air CV: [...] Started bolus tube feeds 11/23: Begun C collar/DATABASE MANAGER weaning Active issues/Plan: # BIG 3 [...] risk for aspiration # nutrition - NPO, FOOD BEVERAGE ATTENDANT evaluating patient when out of c collar [...] - Neurosurgery following peripherally - Must wear DATABASE MANAGER when OOB, ok for C-collar only [...] obic coverage Disposition: continue tube feeds, continue FOOD BEVERAGE ATTENDANT evals and c collar weaning CHRISTIAN KELLEY PA-C [facility] & [place] [address] [phone] Associated attestation - Brian Painting MD - 11/27/2017 8:50 PM PDTAttending: I saw and examined Berlin Temple ([id number]) with Christian Kelley PA-C on 11/27/17 and agree wi th the assessment and plan as outlined in this note and participated in the planning of care . Increase melatonin and trazodone for insomnia. Enteral feeding via PEG tube for dysphagia. Disposition planning. Brian Painting MD FACS residential tech Division of Trauma, Critical Care & Acute Care Surgery [facility] PA-C - 11/26/2017 6:25 AM PDTFormatting of [...] Weaning C- collar based on NSG plan FOOD BEVERAGE ATTENDANT continues to follow Current meds: I have [...] Started bolus tube feeds 11/23: Begun C collar/DATABASE MANAGER weaning Active issues/Plan: # BIG 3 [...] risk for aspiration # nutrition - NPO, FOOD BEVERAGE ATTENDANT evaluating patient when out of c collar [...] - Neurosurgery following peripherally - Must wear DATABASE MANAGER when OOB, ok for C-collar only [...] looking for placement Venita Pruitt PA-[place] [phone] [facility] [address] [place] [address] Associated attestation - Brian Painting MD - 11/26/2017 8:52 PM PDTAttending: I saw and examined Berlin Temple ([id number]) with Venita Pruitt PA-C on 11/26/17 and agree wi th the assessment and plan as outlined in this note and participated in the planning of care . Continue enteral feeding via PEG tube due to dysphagia. Speech pathology continues to foll ow. Maintain cervical immbolization collar while in bed for C7 bilateral lamina fractures. D ischarge planning. Brian Painting MD FACS residential tech Division of Trauma, Critical Care & Acute [...] Weaning C- collar based on NSG plan FOOD BEVERAGE ATTENDANT continues to follow Current meds: I have [...] Started bolus tube feeds 11/23: Begun C collar/DATABASE MANAGER weaning Active issues/Plan: # BIG 3 [...] risk for aspiration # nutrition - NPO, FOOD BEVERAGE ATTENDANT evaluating patient when out of c collar [...] - Neurosurgery following peripherally - Must wear DATABASE MANAGER when OOB, ok for C-collar only [...] looking for placement Venita Pruitt PA-C [place] [phone] [facility] [place] [address] [address] [facility] [place] [phone] Associated attestation - Brian Painting MD - 11/26/2017 11:56 AM PDTAttending: I saw and examined Berlin Temple ([id number]) with Venita Pruitt PA-C on 11/25/17 and agree wi th the assessment and plan as outlined in this note and participated in the planning of care . Continue bolus enteral feeding via PEG tube for dysphagia. Trazodone and quetiapine for tr aumatic encephalopathy and agitation. Maintain cervical immbolization collar while in bed. Brian Painting MD FACS residential tech Division of Trauma, Critical Care & Acute [...] events: No acute events overnight Worked with FOOD BEVERAGE ATTENDANT yesterday - remains NPO Doing well with c collar/molecular biology director weaning plan Current meds: I have [...] to midline right scalp, EOMI Neck: in [place] collar Chest: in DATABASE MANAGER Respiratory: unlabored on room air CV: [...] Started bolus tube feeds 11/23: Begun C collar/DATABASE MANAGER weaning Active issues/Plan: # BIG 3 [...] risk for aspiration # nutrition - NPO, FOOD BEVERAGE ATTENDANT evaluating patient when out of c collar [...] - Neurosurgery following peripherally - Must wear DATABASE MANAGER when OOB, ok for C-collar only [...] [facility] [place] [address] [address] [phone] Associated attestation - Santos Cardozo MD - [...] with speech toward being able to swallow. [id number] Christian Kelley PA-C - 11/23/2017 12:26 PM [...] overnight Planning to begin C collar and DATABASE MANAGER weaning plan Current meds: I have [...] to midline right scalp, EOMI Neck: in [place] collar Chest: in DATABASE MANAGER Respiratory: CTA bilaterally, lungs symmetrical, equal [...] Started bolus tube feeds 11/23: Begun C collar/DATABASE MANAGER weaning Active issues/Plan: # BIG 3 [...] risk for aspiration # nutrition - NPO, FOOD BEVERAGE ATTENDANT following - PEG tube feeds switched to goal @ 250 mL x 5/day, 225ml free water flushes 5x/day - FOOD BEVERAGE ATTENDANT to work with patient on swallow while [...] - Neurosurgery following peripherally - Must wear DATABASE MANAGER when OOB, ok for C-collar only [...] [facility] [place] [address] [address] [address] [phone] ELLRandi Atkins AGACNP - 11/22/2017 6:37 AM [...] risk for aspiration # nutrition - NPO, FOOD BEVERAGE ATTENDANT following - PEG tube feeds switched to [...] - Neurosurgery following peripherally - Must wear DATABASE MANAGER when OOB, ok for C-collar only [...] agitation & [place] [address] [facility] [place] [address] [address] [address] [phone] Associated attestation - Fidelina Shields MD - 11/25/2017 5:51 AM PDTAttending: I saw and examined Berlin Temple ([id number]) with KESHAWN Alexander on mornin g rounds 11/22/17 and agree with the assessment and plan as outlined in this note and partic ipated in the planning of care. This is a late entry for care provided on that date. Sleep is somewhat improved with adjusted medication regimen. Increasing mobility. Plan c-c ollar weaning per neurosurgery recs. Fidelina Shields MD Manager Biostatistics Division of Trauma, Critical Care and Acute Care Surgery Office: [phone] Pager: [phone] Fernando Li PA - 11/21/2017 4:21 PM PDTNeurosurgery Brief Note: Reviewed repeat imaging C spine. Ok to start C Collar and DATABASE MANAGER taper as planned on 11/23/17. Written [...] LI PA-C [facility] [address] [place] [address] ELLNemo Atkins AGACNP - 11/21/2017 6:52 AM [...] risk for aspiration # nutrition - NPO, FOOD BEVERAGE ATTENDANT following - PEG tube feeds switched to [...] - Neurosurgery following peripherally - Must wear DATABASE MANAGER when OOB, ok for C-collar only [...] Sleep & agitation [place] [phone] [facility] & [place] [address] [address] [address] [phone] Associated attestation - Fidelina Shields MD - 11/21/2017 2:27 PM PDTAttending: I saw and examined Berlin Temple ([id number]) with KESHAWN Alexander on mornin g rounds [...] mobility and daytime wakefullness. Fidelina Shields MD Manager Biostatistics Division of Trauma, Critical Care and Acute Care Surgery Office: [phone] Pager: [phone] Venita Pruitt PA-C - 11/20/2017 12:31 PM [...] risk for aspiration # nutrition - NPO, FOOD BEVERAGE ATTENDANT following - PEG tube feeds switched to [...] - Neurosurgery following peripherally - Must wear DATABASE MANAGER when OOB, ok for C-collar only [...] seroquel as needed. Venita Pruitt PA-C [place] [phone] [facility] [address] [address] [phone] Associated attestation - Fidelina Shields MD - [...] Placement remains a challenge. Fidelina Shields MD Manager Biostatistics Division of Trauma, Critical Care and Acute Care Surgery Office: [phone] Pager: [phone] Fernando Li PA - 11/20/2017 10:51 AM [...] y/o Male in Hard Cervical Collar in [facility] Incision: C/D/I, no erythema-removed scalp sutures. [...] Patient being managed in C collar and DATABASE MANAGER. -Patient developed drainage from previous crani [...] Spine immobilization. Cervical collar while in bed, DATABASE MANAGER when OOB planned duration of immobilization 12 weeks total: 11/23/17. Will then wean out of Cervical collar over 5 week period. Will provide written instructions. FERNANDO LI PA-C [facility] [address] [facility] [address] [place] [phone] MEDICATIONS Current Facility-Administered Medications Medication acetaminophen (TYLENOL) [...] risk for aspiration # nutrition - NPO, FOOD BEVERAGE ATTENDANT following - PEG tube feeds switched to [...] - Neurosurgery following peripherally - Must wear DATABASE MANAGER when OOB, ok for C-collar only [...] seroquel as needed. Venita Pruitt PA-C [place] [phone] [facility] [address] [place] [facility] [phone] Associated attestation - Fidelina Shields MD - 11/19/2017 2:24 PM PDTAttending: I saw and examined Berlin Temple with Venita Pruitt PA-C on morning rounds 11/19/17 and ag ree with the assessment and plan as outlined in this note and participated in the planning o f care. Adjusting antipsychotic medication and behavioral interventions while we search for suitabl e discharge plan. Fidelina Shields MD Manager Biostatistics Division of Trauma, Critical Care and Acute Care Surgery Office: [phone] Pager: [phone] Fernando Li PA - 11/18/2017 9:03 AM [...] Patient being managed in C collar and DATABASE MANAGER. -Patient developed drainage from previous crani [...] Spine immobilization. Cervical collar while in bed, DATABASE MANAGER when OOB planned duration of immobilization 12 weeks total: 11/23/17. Will then wean out of Cervical collar over 5 week period. Will provide written instructions. FERNANDO LI PA-C [facility] [address] [facility] [address] [place] [id number] MEDICATIONS Current Facility-Administered Medications Medication acetaminophen (TYLENOL) [...] risk for aspiration # nutrition - NPO, FOOD BEVERAGE ATTENDANT following - PEG tube feeds switched to [...] - Neurosurgery following peripherally - Must wear DATABASE MANAGER when OOB, ok for C-collar only when in bed - Will likely need for 12 weeks (ends November 23), then wean out of Cervical collar over 5 w point hope ira period. Per NSG they will provide [...] haldol as tolerated Venita Pruitt PA-C [place] [phone] [facility] & [address] [place] [facility] [phone] Associated attestation - Fidelina Shields MD - 11/19/2017 12:18 AM PDTAttending: I saw and examined Berlin Temple with Venita Pruitt PA-C on morning rounds 11/18/17 and ag ree with the assessment and plan as outlined in this note and participated in the planning o f care. Mental status continues to wax/wane, working on disposition options. Fidelina Shields MD Manager Biostatistics Division of Trauma, Critical Care and Acute Care Surgery Office: [phone] Pager: [phone] Sherine Sarmiento, [facility] - 11/17/2017 10:49 AM PDTFormatting [...] risk for aspiration # nutrition - NPO, FOOD BEVERAGE ATTENDANT following - PEG tube feeds switched to goal @ 275 mL x 5/day, 200ml free water flushes 5x/day # insomnia - melatonin 3mg qhs - Haldol 5mg Qhs - Trazadone increased from 50 [id number] QHS with no effect - Start Quetiapine 50mg QHS with 25mg Q12hrs PRN, with the goal of uptitrating seroquel and weaning off haldol - ECG 11/17 QTC 427 #Relative hypotension - Improving after initiation of free water flushes - Orthostatics negative # 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 Per NSG they will provide [...] will add [place] [phone] [facility] [address] [address] Associated attestation - Em Cunningham MD - 11/27/2017 9:13 PM PDTI was present and rou nded with the Advanced Practice Provider today. I interviewed and examined the patient. I reviewed the history, as documented today. I agree with the ASHLEY assessment and plan. Con tinue abx for epidural abscess. FOOD BEVERAGE ATTENDANT is continuing to follow. Continue feeding via PEG. May onin for insomnia. Must weat DATABASE MANAGER when OOB. EM CUNNINGHAM MD [facility] [address] [facility] [address] [place] [address] Sherine Sarmiento AGACNP - 11/16/2017 12:22 PM [...] risk for aspiration # nutrition - NPO, FOOD BEVERAGE ATTENDANT following - PEG tube feeds switched to goal @ 275 mL x 5/day, 200ml free water flushes 5x/day # insomnia - melatonin 3mg qhs - Haldol 5mg Qhs - Will increase trazadone from 50 [id number] QHS #Relative hypotension - Improving after initiation of free water flushes - Orthostatics negative Resolved or chronic issues/Plan: # C7 bilateral lamina fractures/ C6-T2 spinous process fractures - Neurosurgery following - Must wear DATABASE MANAGER when OOB, ok for C-collar only [...] increase traz[place] for [place] [phone] [facility] [address] [address] Associated attestation - Fidelina Shields MD - 11/25/2017 5:48 AM PDTAttending: I saw and examined Berlin Temple ([id number]) with KESHAWN Alexander on mornin g rounds [...] remains a persistent issue. Fidelina Shields MD Manager Biostatistics Division of Trauma, Critical Care and Acute Care Surgery Office: [phone] Pager: [phone] Fernando Li PA - 11/15/2017 1:59 PM [...] without history. 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 CT spine shows multiple fractures with most concerning fr acture at C7 lamina with canal intrusion. Patient being managed in C collar and DATABASE MANAGER. -Patient developed drainage from previous crani [...] Spine immobilization. Cervical collar while in bed, DATABASE MANAGER when OOB planned duration of immobilization 12 weeks total: 11/23/17. Will then wean out of Cervical collar over 5 week period. Will provide written instructions. CAITIE SCHULTZ-Merle [facility] [address] [facility] [address] [place] [address] MEDICATIONS Current Facility-Administered Medications Medication acetaminophen (TYLENOL) [...] 5 mg traZODone (DESYREL) tablet 50 mg [place], Mi luci Cleary [facility] - 11/15/2017 6:43 AM PDTFormatting [...] risk for aspiration # nutrition - NPO, FOOD BEVERAGE ATTENDANT following - PEG tube feeds switched to [...] fractures - Neurosurgery following - Must wear DATABASE MANAGER when OOB, ok for C-collar only [...] sitter by early next week Sherine Sarmiento [place] [phone] [facility] [address] [address] Associated attestation - Em Cunningham MD - [...] [facility] [address] [facility] [address] [place] [address] Moncho Wise MD - 11/14/2017 6:35 PM [...] Dysphagia, risk for aspiration #nutrition - NPO, FOOD BEVERAGE ATTENDANT following - PEG tube feeds switched to goal @ 275 mL x 5/day # insomnia - melatonin 3mg qhs - trazadone 50mg qhs Resolved or chronic issues/Plan: # C7 bilateral lamina fractures/ C6-T2 spinous process fractures - Neurosurgery following - Must wear DATABASE MANAGER when OOB, ok for C-collar only [...] Wise MD General Surgery, PGY-1 Trauma pager: [phone] [facility] [place] [address] [address] Associated attestation - Em Cunningham MD - 11/15/2017 9:21 AM PDTI saw and evaluated brice david patient. I agree with the findings and the plan of care as documented in the resident s note. EM CUNNINGHAM MD [facility] [address] [facility] [address] [place] [address] Moncho Wise MD - 11/13/2017 4:26 PM [...] Dysphagia, risk for aspiration #nutrition - NPO, FOOD BEVERAGE ATTENDANT following - PEG tube feeds to nocturnal continuous for better tolerance -- 200mL/ 10 hours # insomnia - melatonin 3mg qhs - trazadone 50mg qhs Resolved or chronic issues/Plan: # C7 bilateral lamina fractures/ C6-T2 spinous process fractures - Neurosurgery following - Must wear DATABASE MANAGER when OOB, ok for C-collar only [...] Wise MD General Surgery, PGY-1 Trauma pager: [phone] [facility] [address] [address] [phone] Associated attestation - Em Cunningham MD - 11/14/2017 8:56 AM PDTI saw and evaluated t he patient. I agree with the findings and the plan of care as documented in the resident s note. EM CUNNINGHAM MD [facility] [address] [facility] [address] [place] [address] Fernando Li PA - 11/13/2017 1:22 PM [...] - 1.30 mg/dL 0.48 (L) EGFR - BANGLADESHI Latest Ref Range: >60 mL/min >60 EGFR NON -BANGLADESHI Latest Ref Range: >60 mL/min >60 GLUCOSE, [...] Patient being managed in C collar and DATABASE MANAGER. -Patient developed drainage from previous crani [...] Spine immobilization. Cervical collar while in bed, DATABASE MANAGER when OOB anticipate duration of immobilization 12 weeks total: 11/23/17. Will then wean out of Cervical collar over 5 week period. FERNANDO LI PA-C [facility] [address] [place] [address] Pg [phone] MEDICATIONS Current Facility-Administered Medications Medication acetaminophen (TYLENOL) [...] Dysphagia, risk for aspiration #nutrition - NPO, FOOD BEVERAGE ATTENDANT following - PEG tube feeds to nocturnal continuous for better tolerance -- 200mL/ 10 hours # insomnia - melatonin 3mg qhs - trazadone 50mg qhs Resolved or chronic issues/Plan: # C7 bilateral lamina fractures/ C6-T2 spinous process fractures - Neurosurgery following - Must wear DATABASE MANAGER when OOB, ok for C-collar only [...] Wise MD General Surgery, PGY-1 Trauma pager: [phone] [facility] [address] [place] [facility] [place] [address] [phone] Associated attestation - Shlomo Rosenthal MD - 11/12/2017 5:43 PM PDTAttending: I saw and examined Berlin Temple ([id number]) with the residents on 11/12/2017 and agree with the assessment and plan as outlined in this note and participated in the planning of care. Shlomo Rosenthal MD Uniform Patrol Police Officer Division of Trauma and Critical Care [...] Dysphagia, risk for aspiration #nutrition - NPO, FOOD BEVERAGE ATTENDANT following -PEG tube feeds to nocturnal continuous for better tolerance -- 200mL/ 10 hours # insomnia - will start melatonin - will start trazadone QHS Resolved or chronic issues/Plan: # C7 bilateral lamina fractures/ C6-T2 spinous process fractures - Neurosurgery following - Must wear DATABASE MANAGER when OOB, ok for C-collar only [...] placeme nt options. Venita Pruitt PA-C P[place] [phone] or [phone] [facility] [place] [address] [address] [phone] Associated attestation - Em Cunningham MD - [...] CUNNINGHAM MD [facility] [address] [facility] [address] [place] [address] Fernando Li PA - 11/11/2017 9:21 AM [...] O2 Delivery Device: None (room air) (11/11/17 0712) 24 Hour Vital Min/Max: Systolic (24hrs), [...] - 1.30 mg/dL 0.48 (L) EGFR - BANGLADESHI Latest Ref Range: >60 mL/min >60 EGFR NON -BANGLADESHI Latest Ref Range: >60 mL/min >60 GLUCOSE, [...] Patient being managed in C collar and DATABASE MANAGER. -Patient developed drainage from previous crani [...] Spine immobilization. Cervical collar while in bed, DATABASE MANAGER when OOB anticipate duration of immobilization 12 weeks total FERNANDO LI PA-C [facility] [address] [place] [address] Pg [phone] MEDICATIONS Current Facility-Administered Medications Medication acetaminophen (TYLENOL) [...] Dysphagia, risk for aspiration #nutrition - NPO, FOOD BEVERAGE ATTENDANT following - will change PEG tube feeds to nocturnal continuous for better tolerance -- 200mL/ 10 hour s # insomnia - will start melatonin - will start trazadone QHS Resolved or chronic issues/Plan: # C7 bilateral lamina fractures/ C6-T2 spinous process fractures - Neurosurgery following - Must wear DATABASE MANAGER when OOB, ok for C-collar only [...] on placement options. Venita Pruitt PA-C Pager [phone] [place] [phone] [facility] [address] [address] [address] [facility] [place] [address] Associated attestation - Brian Painting MD - 11/10/2017 9:48 PM PDTAttending: I saw and examined Berlin Temple ([id number]) with Venita Pruitt PA-C on 11/10/17 and agree wi th the assessment and plan as outlined in this note and participated in the planning of care . 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 Co ntinue enteral feeding via PEG due to dysphagia. Awaiting placement Brian Painting MD FACS residential tech Division of Trauma, Critical Care & Acute [...] Patient being managed in C collar and DATABASE MANAGER. -Patient developed drainage from previous crani [...] Spine immobilization. Cervical collar while in bed, DATABASE MANAGER when OOB anticipate duration of immobilization 12 weeks total Please page [phone] with any questions or concerns. Akanksha Varma MD Neurosurgery, PGY-1 Pager [phone] rafts, CAITIE Haider - 11/09/2017 9:24 AM [...] Dysphagia, risk for aspiration #nutrition - NPO, FOOD BEVERAGE ATTENDANT following - will change PEG tube feeds to nocturnal continuous for better tolerance -- 200mL/ 10 hour s Resolved or chronic issues/Plan: # C7 bilateral lamina fractures/ C6-T2 spinous process fractures - Neurosurgery following - Must wear DATABASE MANAGER when OOB, ok for C-collar only [...] on placement options. Venita Pruitt PA-C [place] [phone] [place] [phone] [facility] [address] [place] [phone] Associated attestation - Magali Elias MD,MPH - [...] Patient being managed in C collar and DATABASE MANAGER. -Patient developed drainage from previous crani [...] Spine immobilization. Cervical collar while in bed, DATABASE MANAGER when OOB anticipate duration of immobilization 12 weeks total Please page [phone] with any questions or concerns. Akanksha Varma MD Neurosurgery, PGY-1 Pager [phone] hDaisy petty PA - 11/08/2017 1:24 PM [...] - 1.30 mg/dL 0.44 (L) EGFR - BANGLADESHI Latest Ref Range: >60 mL/min >60 EGFR NON -BANGLADESHI Latest Ref Range: >60 mL/min >60 GLUCOSE, [...] [address] HEAD WO CONTRAST Order: [id number] Performed: 11/07/2017 15:43 Status: Final result Visible [...] e report as now presented. Final signature: Masetr Bender MD 11/07/2017 4:04 PM Preliminary: Leif [...] Patient being managed in C collar and DATABASE MANAGER. -Patient developed drainage from previous crani [...] Spine immobilization. Cervical collar while in bed, DATABASE MANAGER when OOB anticipate duration of immobilization 12 weeks total FERNANDO LI PA-C [facility] [address] [place] [address] MEDICATIONS Current Facility-Administered Medications Medication acetaminophen (TYLENOL) [...] Dysphagia, risk for aspiration #nutrition - NPO, FOOD BEVERAGE ATTENDANT following - will change PEG tube feeds to nocturnal continuous for better tolerance -- 200mL/ 10 hour s Resolved or chronic issues/Plan: # C7 bilateral lamina fractures/ C6-T2 spinous process fractures - Neurosurgery following - Must wear DATABASE MANAGER when OOB, ok for C-collar only [...] TF to nocturnal. Venita Pruitt PA-C [place] [phone] [place] [phone] [facility] [address] [place] [facility] [place] [phone] Associated attestation - Santos Cardozo MD - 11/08/2017 12:14 PM PDTI was present and r ounded with the Advanced Practice Provider today, Venita Pruitt. I interviewed and examined t he patient. I reviewed the history, as documented today. I agree with the ASHLEY assessment a nd plan. We are adjusting his tube feeds because he doesn't tolerate a high rate. [id number] Fernando Li PA - 11/07/2017 1:01 PM [...] - 1.30 mg/dL 0.50 (L) EGFR - BANGLADESHI Latest Ref Range: >60 mL/min >60 EGFR NON -BANGLADESHI Latest Ref Range: >60 mL/min >60 GLUCOSE, [...] Patient being managed in C collar and DATABASE MANAGER. -Patient developed drainage from previous crani [...] Spine immobilization. Cervical collar while in bed, DATABASE MANAGER when OOB anticipate duration of immobilization 12 weeks total FERNANDO LI PA-C [facility] [address] [facility] [address] [place] [address] Pg [phone] MEDICATIONS Current Facility-Administered Medications Medication acetaminophen (TYLENOL) [...] 8.6-50 mg 1 tablet ELLMilly, Nemo Cleary [facility] - 11/07/2017 7:16 AM PDTFormatting [...] Dysphagia, risk for aspiration #nutrition - NPO, FOOD BEVERAGE ATTENDANT following - TFs at goal 400 mL bolus Q5 hours, continues to have some gastroparesis & residuals. Will continue to monitor Resolved or chronic issues/Plan: # C7 bilateral lamina fractures/ C6-T2 spinous process fractures - Neurosurgery following - Must wear DATABASE MANAGER when OOB, ok for C-collar only [...] continue [place] [phone] [facility] [address] [facility] [address] [phone] Associated attestation - Santos Cardozo MD - 11/07/2017 2:48 PM PDTI was present and r ounded with the Advanced Practice Provider today, Sherine Sarmiento. I interviewed and e xamined the patient. I reviewed the history, as documented today. I agree with the ASHLEY ass essment and plan. He did well with his cranioplasty yesterday. He will receive ancef until his JERONIMO is out. [id number] Gurpreet Foy PA-C - 11/06/2017 8:47 AM [...] Dysphagia, risk for aspiration - NPO - FOOD BEVERAGE ATTENDANT following Fluids/Electrolytes/Nutrition: No acute issues Renal: Urinary retention: -Straight cath for 450 -Flomax started Hematology: No acute issues Infectious Diseases: No acute issues Endocrinology: No acute issues Musculoskeletal/Skin: No acute issues RESOLVED ISSUES: nutrition - TFs at goal 400 mL bolus Q5 hours, tolerating C7 bilateral lamina fractures/ C6-T2 spinous process fractures - Neurosurgery following - Must wear DATABASE MANAGER when OOB, ok for C-collar only [...] Department of Surgery Mail Code: [id number] [address] [place] [address] Associated attestation - Magali Elias MD,MPH - [...] today - Continue C-collar at all times, DATABASE MANAGER brace when OOB Please contact the Neurosurgery resident on-call pager [phone] with questions or concerns. Mary Medrano M.D., M.P.H. R2 Resident Physician Neurological Surgery Pager: [phone] signed by Mary Medrano MD,MPH at 11/06/2017 [...] Please contact the Neurosurgery resident on-call pager [phone] with questions or concerns. Mary Medrano M.D., M.P.H. R2 Resident Physician Neurological Surgery Pager: [phone] signed by Mary Medrano MD,MPH at 11/05/2017 9:12 PM Rg Gutierrez MD - 11/05/2017 8:37 PM PDTDictation ID: [id number] signed by Rg gordon MD at 11/05/2017 [...] Dysphagia, risk for aspiration - NPO - FOOD BEVERAGE ATTENDANT following Resolved or chronic issues/Plan: #nutrition - TFs at goal 400 mL bolus Q5 hours, tolerating # C7 bilateral lamina fractures/ C6-T2 spinous process fractures - Neurosurgery following - Must wear DATABASE MANAGER when OOB, ok for C-collar only [...] for syntethic cranioplasty Venita Pruitt PA-C [place] [phone] [facility] [address] [place] [address] Associated attestation - Santos Cardozo MD - 11/05/2017 1:19 PM PDTI was present and r ounded with the Advanced Practice Provider today, Venita Pruitt. I interviewed and examined t he patient. I reviewed the history, as documented today. I agree with the ASHLEY assessment a nd plan. He is undergoing cranioplasty today. [id number] Dallin Bourgeois MD - 11/04/2017 4:45 PM [...] surgery? No Dallin Bourgeois MD Neurosurgery PGY2 [id number] Moncho Vasquez MD - 4:04 PM PDT [...] Dysphagia, risk for aspiration - NPO - FOOD BEVERAGE ATTENDANT following Resolved or chronic issues/Plan: # C7 bilateral lamina fractures/ C6-T2 spinous process fractures - Neurosurgery following - Must wear DATABASE MANAGER when OOB, ok for C-collar only [...] with NSGY for crani . Please page [phone] with any questions or concerns. Moncho Wise MD Trauma PGY-1 Pager: [phone] [facility] [place] [address] [address] Associated attestation - Santos Cardozo MD - 11/04/2017 4:48 PM PDTI was present with the resident during the history and exam. I discussed the case with the resident and agree with the findings and plan as documented in the resident s note. SANTOS CARDOZO MD [facility] [address] [facility] [address] [place] [address] [id number] Moncho Wise MD - 11/03/2017 10:47 AM [...] Dysphagia, risk for aspiration - NPO - FOOD BEVERAGE ATTENDANT following Resolved or chronic issues/Plan: # C7 bilateral lamina fractures/ C6-T2 spinous process fractures - Neurosurgery following - Must wear DATABASE MANAGER when OOB, ok for C-collar only [...] Disposition: continue trauma [facility]. Please page [phone] with any questions or concerns. Moncho Wise MD Trauma PGY-1 Pager: [phone] [facility] [place] [facility] [place] [address] Associated attestation - Monster Rucker MD - 11/12/2017 12:28 PM PDTATTENDING ADDENDUM I saw and examined Berlin Temple with the residents on 11/03 and agree with the assessment a nd plan as outlined in this note and participated in the planning of care. Monster Rucker MD FACS residential tech Division of Trauma, Critical Care, and Acute Care Surgery [id number] Moncho Wise MD - 11/02/2017 4:15 PM [...] Dysphagia, risk for aspiration - NPO - FOOD BEVERAGE ATTENDANT following Resolved or chronic issues/Plan: # C7 bilateral lamina fractures/ C6-T2 spinous process fractures - Neurosurgery following - Must wear DATABASE MANAGER when OOB, ok for C-collar only [...] vs auto, tolerating tube feeds. Please page [phone] with any questions or concerns. Moncho Wise MD Trauma PGY-1 Pager: [phone] [facility] [place] [address] [address] Associated attestation - Pepito Mclaughlin MD - 11/04/2017 4:31 PM PDTI saw and evaluated the p atient. I agree with the findings and the plan of care as documented in the resident s no te. Pepito Mclaughlin MD [facility] [address] [facility] [address] [place] [address] Fernando Li PA - 11/01/2017 9:50 AM PDTFormatting of this note might be differe nt from the original. NEUROSURGERY INPATIENT PROGRESS NOTE Hospital Day:62 Author; FERNANDO LI PA-C Attending Physician: Chaz Munoz MD Neurosurgery Attending: Mgadiel Stock MD Interval Hx: -No events overnight. [...] - 1.30 mg/dL 0.48 (L) EGFR - BANGLADESHI Latest Ref Range: >60 mL/min >60 EGFR NON -BANGLADESHI Latest Ref Range: >60 mL/min >60 GLUCOSE, [...] voice. Oriented x 3, anisocoria-L>R-(at baseline), EO [place], face symmetric Motor: MOTOR SCORE LEFT RIGHT [...] Patient being managed in C collar and DATABASE MANAGER. -Patient developed drainage from previous crani [...] Spine immobilization. Cervical collar while in bed, DATABASE MANAGER when OOB anticipate duration of immobilization 12 weeks total. -Plan Synthetic cranioplasty on 11/05/2017. Stereotactic Head CT-for custom cranioplasty com pleted. Plan communicated with Primary team. Instructed to anticoagulation 24 hrs pre op. Ho ld TF midnight prior. FERNANDO LI PA-C [facility] [address] [facility] [address] [place] [address] Pg [phone] MEDICATIONS Current Facility-Administered Medications Medication acetaminophen (TYLENOL) [...] Dysphagia, risk for aspiration - NPO - FOOD BEVERAGE ATTENDANT following Resolved or chronic issues/Plan: # C7 bilateral lamina fractures/ C6-T2 spinous process fractures - Neurosurgery following - Must wear DATABASE MANAGER when OOB, ok for C-collar only [...] vs auto, tolerating tube feeds. Please page [phone] with any questions or concerns. Moncho Wise MD Trauma PGY-1 Pager: [phone] [facility] [place] [address] [address] [facility] [address] Associated attestation - Shlomo Rosenthal MD - 11/06/2017 6:20 AM PDTAttending: I saw and examined Berlin Temple ([id number]) with the residents on 11/01/2017 and agree with the assessment and plan as outlined in this note and participated in the planning of care. Shlomo Rosenthal MD Uniform Patrol Police Officer Division of Trauma and Critical Care [...] Dysphagia, risk for aspiration - NPO - FOOD BEVERAGE ATTENDANT following # Infection of cranioplasty, epidural abscess [...] fractures - Neurosurgery following - Must wear DATABASE MANAGER when OOB, ok for C-collar only [...] vs auto, tolerating tube feeds. Please page [phone] with any questions or concerns. Filemon Christian MD Trauma PGY-1 Pager: [phone] [facility] [address] [place] [address] Associated attestation - Shlomo Rosenthal MD - 10/31/2017 10:50 AM PDTAttending: I saw and examined Berlin Temple ([id number]) with the residents on 10/31/2017 and agree with the assessment and plan as outlined in this note and participated in the planning of care. Shlomo Roesnthal MD [employer] Patrol Police Officer Division of Trauma and Critical Care [...] Dysphagia, risk for aspiration - NPO - FOOD BEVERAGE ATTENDANT following # Infection of cranioplasty, epidural abscess [...] fractures - Neurosurgery following - Must wear DATABASE MANAGER when OOB, ok for C-collar only [...] and continue [facility] Please page [phone] with any questions or concerns. Filemon Christian MD Trauma PGY-1 Pager: [phone] [facility] [address] [place] [address] Associated attestation - Chaz Munoz MD - 11/01/2017 8:41 AM PDTI have seen and exami kassie the patient, discussed the case with the resident team, and I agree with the assessment and plan as outlined in the note. I participated in formulation of the plan for care. Chaz Munoz MD, FACS Uniform Patrol Police Officer, Trauma, Critical Care and Acute Care [...] Dysphagia, risk for aspiration - NPO - FOOD BEVERAGE ATTENDANT following # Infection of cranioplasty, epidural abscess [...] fractures - Neurosurgery following - Must wear DATABASE MANAGER when OOB, ok for C-collar only [...] [facility] [address] [place] [address] Associated attestation - Shlomo Rosenthal MD - 10/30/2017 9:15 AM PDTAttending: I saw and examined Berlin Temple ([id number]) with the residents on 10/29/2017 and agree with the assessment and plan as outlined in this note and participated in the planning of care. Shlomo Rosenthal MD Uniform Patrol Police Officer Division of Trauma and Critical Care [...] Dysphagia, risk for aspiration - NPO - FOOD BEVERAGE ATTENDANT following # Infection of cranioplasty, epidural abscess [...] fractures - Neurosurgery following - Must wear DATABASE MANAGER when OOB, ok for C-collar only [...] CT study of PEG. Filemon Christian MD [facility] [place] [facility] [place] [place] [address] Associated attestation - Shlomo Rosenthal MD - 10/29/2017 10:10 AM PDTAttending: I saw and examined Berlin Temple ([id number]) with the residents on 10/28/2017 and agree with the assessment and plan as outlined in this note and participated in the planning of care. Shlomo Rosenthal MD Uniform Patrol Police Officer Division of Trauma and Critical Care [...] Dysphagia, risk for aspiration - NPO - FOOD BEVERAGE ATTENDANT following # Infection of cranioplasty, epidural abscess [...] fractures - Neurosurgery following - Must wear DATABASE MANAGER when OOB, ok for C-collar only [...] pending CT abdomen pelvis. Filemon Christian MD [facility] [address] [facility] [address] Associated attestation - Shiva Nieto MD,MPH - 10/27/2017 5:01 PM PDTI saw and evaluat ed the patient. I agree with the findings and the plan of care as documented in the residen t s note. CT ABD today ordered to verify gastrostomy placement. Increasing haloperidol d osing to 5mg. Shiva Nieto MD, MPH residential tech Trauma, Critical Care & Acute Care Surgery [...] flap out on right, EOMI Neck: in [place] collar Respiratory: unlabored on room air CV: [...] Dysphagia, risk for aspiration - NPO - FOOD BEVERAGE ATTENDANT following # Infection of cranioplasty, epidural abscess [...] fractures - Neurosurgery following - Must wear DATABASE MANAGER when OOB, ok for C-collar only [...] before beginning tube feeds CHRISTIAN KELLEY PA-C [facility] [place] [address] [phone] Associated attestation - Santos Cardozo MD - [...] starting feeds. He is currently on TPN. [id number] Venita Pruitt PA-C - 10/25/2017 12:13 PM [...] Dysphagia, risk for aspiration - NPO - FOOD BEVERAGE ATTENDANT following # Infection of cranioplasty, epidural abscess [...] fractures - Neurosurgery following - Must wear DATABASE MANAGER when OOB, ok for C-collar only [...] ready for cranioplasty. Venita Pruitt PA-[place] [phone] [place] [phone] [facility] [address] [place] [facility] [phone] Associated attestation - Monster Rucker MD - [...] evaluate potential leak. Monster Rucker MD FACS residential tech Division of Trauma, Critical Care, and Acute Care Surgery [phone] Fernando Li PA - 10/24/2017 2:50 PM [...] - 1.30 mg/dL 0.58 (L) EGFR - BANGLADESHI Latest Ref Range: >60 mL/min >60 EGFR NON -BANGLADESHI Latest Ref Range: >60 mL/min >60 GLUCOSE, [...] voice. Oriented x 3, anisocoria-L>R-(at baseline), EO [place], face symmetric Motor: MOTOR SCORE LEFT RIGHT [...] Patient being managed in C collar and DATABASE MANAGER. -Developed drainage from previous crani site [...] Spine immobilization. Cervical collar while in bed, DATABASE MANAGER when OOB anticipate duration of immobilization 12 weeks total. -Will plan Synthetic cranioplasty when deemed medically ready by the Infectious Diseases te am. Per ID recs: continue cefepime x 21 d prior to re-do crani, stop date 10/31/17 CAITIE SCHULTZ-Merle [facility] [address] [facility] [address] [place] [address] Pg [phone] MEDICATIONS Current Facility-Administered Medications Medication acetaminophen (TYLENOL) [...] fractures - Neurosurgery following - Must wear DATABASE MANAGER when OOB, ok for C-collar only [...] Dysphagia, risk for aspiration - NPO - FOOD BEVERAGE ATTENDANT following # Infection of cranioplasty, epidural abscess [...] ready for cranioplasty. Venita Pruitt PA-C [place] [phone] [place] [phone] [facility] [address] [place] [phone] Associated attestation - Monster Rucker MD - [...] abdominal seps is. Monster Rucker MD FACS residential tech Division of Trauma, Critical Care, and Acute Care Surgery [phone] Sheri Garner MD,MPH - 10/23/2017 6:24 AM [...] fractures - Neurosurgery following - Must wear DATABASE MANAGER when OOB, ok for C-collar only [...] [facility] [place] Associated attestation - Greg Paige MD,PhD - 10/23/2017 3:58 PM PDTEmergency General Young rgery/Trauma Attending Addendum Date of Service: 10/23/2017 I saw and examined Berlin Temple ([id number]) with the resident and agree with the assessmen t and plan as outlined in this note and participated in the planning of care. Appears that his gastric tube has fallen out again by clinical exam. Will add on for the OR today for attempt at endoscopic replacement and fixation. Greg Paige MD, PhD, FACS excavating machine operator Division of Trauma, Critical Care & Acute Care Surgery [facility] [place] [phone] Shade Goodwin MD - 10/22/2017 3:04 PM [...] exchange of G-tube to a new 24 [place] GABRIEL tube, tightened the disk at 6 [...] fractures - Neurosurgery following - Must wear DATABASE MANAGER when OOB, ok for C-collar only when in bed - Will likely need for 12 weeks # Witnessed seizure - in setting of transition from Keppra to Depakote, now back on Keppr a - PRN ativan - Continue Keppra 500 mg BID indefinitely, IV for now, can transition to enteral once imch ating TF with reliable bowel function # [...] PGY1 [facility] Associated attestation [...] has been stable. Monster Rucker MD FACS residential tech Division of Trauma, Critical Care, and Acute Care Surgery [phone] Fernando Li PA - 10/21/2017 12:19 PM [...] - 1.30 mg/dL 0.57 (L) EGFR - BANGLADESHI Latest Ref Range: >60 mL/min >60 EGFR NON -BANGLADESHI Latest Ref Range: >60 mL/min >60 GLUCOSE, [...] Patient being managed in C collar and DATABASE MANAGER. -Developed drainage from previous crani site [...] Spine immobilization. Cervical collar while in bed, DATABASE MANAGER when OOB anticipate duration of immobilization 12 weeks total. -Will plan Synthetic cranioplasty when deemed medically ready by the Infectious Diseases te am. Per ID recs: continue cefepime x21 d prior to re-do crani, stop date 10/31/17 CAITIE SCHULTZ-Merle [facility] [address] [facility] [address] [place] [address] Pg [phone] MEDICATIONS Current Facility-Administered Medications Medication acetaminophen (TYLENOL) [...] fractures - Neurosurgery following - Must wear DATABASE MANAGER when OOB, ok for C-collar only [...] PGY1 [facility] Associated attestation - Monster Rucker MD - 10/24/2017 4:02 PM PDTATTENDING ADDENDUM I saw and examined Berlin Temple with the residents on 10/21 and agree with the assessment and plan as outlined in this note and participated in the planning of care. Monster Rucker MD FACS residential tech Division of Trauma, Critical Care, and Acute Care Surgery [phone] Dori James MD - 10/20/2017 7:27 AM [...] O2 Delivery Device: None (room air) (10/20/17 9473) General: 67 y/o male, no acute distress [...] Patient being managed in C collar and DATABASE MANAGER. De veloped drainage from previous crani [...] Spine immobilization. Cervical collar while in bed, DATABASE MANAGER when OOB anticipate duration of immobilization 12 weeks total. -Will plan Synthetic cranioplasty when deemed medically ready by the Infectious Diseases te am. Per ID recs: continue cefepime x21 d prior to re-do crani, stop date 10/31/17 Dori James MD PGY-1 [facility] Neurosurgery commercial intern pager [phone] MEDICATIONS Current Facility-Administered Medications Medication acetaminophen (TYLENOL) [...] fractures - Neurosurgery following - Must wear DATABASE MANAGER when OOB, ok for C-collar only [...] Sheri Garner MD, MPH Plastic Surgery PGY1 [facility] Associated attestation - Greg Paige MD,PhD - 10/21/2017 10:10 AM PDTEmergency General Young rgery/Trauma Attending Addendum Date of Service: 10/20/17 I saw and examined Berlin Temple ([id number]) with the resident and agree with the assessmen t and plan as outlined in this note and participated in the planning of care. Greg Paige MD, PhD, FACS excavating machine operator Division of Trauma, Critical Care & Acute Care Surgery [facility] [place] [phone] Sheri Garner MD,MPH - 10/19/2017 6:55 AM [...] fractures - Neurosurgery following - Must wear DATABASE MANAGER when OOB, ok for C-collar only [...] PGY1 [facility] Associated attestation - Fidelina Shields MD - 10/19/2017 11:11 PM PDTAttending: I saw and examined Berlin Temple ([id number]) with the residents on morning rounds 10/19/17 and agree with the assessment and plan as outlined in this note and participated in the plan aashish of care. Fidelina Shields MD Manager Biostatistics Division of Trauma, Critical Care and Acute Care Surgery Office: [phone] Pager: [phone] Fernando Li PA - 10/18/2017 11:02 AM [...] - 1.30 mg/dL 0.45 (L) EGFR - BANGLADESHI Latest Ref Range: >60 mL/min >60 EGFR NON -BANGLADESHI Latest Ref Range: >60 mL/min >60 GLUCOSE, [...] General: 67 y/o male in Helmet and DATABASE MANAGER NAD Incision: Scalp: C/D/I, no erythema-nylon [...] Patient being managed in C collar and DATABASE MANAGER. -Developed drainage from previous crani site [...] Spine immobilization. Cervical collar while in bed, DATABASE MANAGER when OOB anticipate duration of immobilization 12 weeks total. -Will plan Synthetic cranioplasty when deemed medically ready by the Infectious Diseases te am. Per ID recs: continue cefepime x21 d prior to re-do crani, stop date 10/31/17 FERNANDO LI PA-C [facility] [address] [place] [phone] MEDICATIONS Current Facility-Administered Medications Medication acetaminophen (TYLENOL) [...] fractures - Neurosurgery following - Must wear DATABASE MANAGER when OOB, ok for C-collar only [...] PGY1 [facility] Associated attestation - Shlomo Rosenthal MD - 10/23/2017 12:31 PM PDTAttending: I saw and examined Berlin Temple ([id number]) with the residents on 10/18/2017 and agree with the assessment and plan as outlined in this note and participated in the planning of care. Shlomo Rosenthal MD Uniform Patrol Police Officer Division of Trauma and Critical Care [...] fractures - Neurosurgery following - Must wear DATABASE MANAGER when OOB, ok for C-collar only [...] need placement eventaully. Venita Pruitt PA-C [place] [phone] [place] [phone] [facility] [address] [place] [address] Associated attestation - Shlomo Rosenthal MD - 10/18/2017 7:48 AM PDTFormatting of this note m ight be different from the original. I saw and examined Berlin Temple ([id number]) with the TRAUMA team on 10/17/2017. I [...] control and incentive spirometry for pulmonary toliet. regulatory manager for disposition plann ing and placement. Shlomo Rosenthal MD Uniform Patrol Police Officer Division of Trauma and Critical Care [...] - 1.30 mg/dL 0.48 (L) EGFR - BANGLADESHI Latest Ref Range: >60 mL/min >60 EGFR NON -BANGLADESHI Latest Ref Range: >60 mL/min >60 GLUCOSE, [...] General: 67 y/o male in Helmet and DATABASE MANAGER NAD Incision: Scalp: C/D/I, no erythema-nylon [...] Patient being managed in C collar and DATABASE MANAGER. -Developed drainage from previous crani site [...] Spine immobilization. Cervical collar while in bed, DATABASE MANAGER when OOB anticipate duration of immobilization 12 weeks total. -Will plan Synthetic cranioplasty when deemed medically ready by the Infectious Diseases te am. Per ID recs: continue cefepime x21d prior to re-do crani, stop date 10/31/17 FERNANDO LI PA-C [facility] [address] [facility] [address] [place] [address] Pg [phone] MEDICATIONS Current Facility-Administered Medications Medication acetaminophen (TYLENOL) [...] fractures - Neurosurgery following - Must wear DATABASE MANAGER when OOB, ok for C-collar only [...] need placement eventaully. Venita Pruitt PA[place] [phone] [place] [phone] [facility] [address] [place] [phone] Associated attestation - Shlomo Rosenthal MD - 10/17/2017 5:59 AM PDTFormatting of this note m ight be different from the original. I saw and examined Berlin Temple ([id number]) with the TRAUMA team on 10/16/2017. I [...] control and incentive spirometry for pulmonary toliet. regulatory manager for disposition planning and placement. Shlomo Rosenthal MD Uniform Patrol Police Officer Division of Trauma and Critical Care [...] to self and year, unable to get [place]. Following commands as instruct ed, though difficulty [...] Patient being managed in C collar and DATABASE MANAGER. Developed drainage from previous crani site [...] Campos PA-C [facility] [address] [place] [phone] rafts, Venita Maciel PA-C - 10/15/2017 6:54 [...] fractures - Neurosurgery following - Must wear DATABASE MANAGER when OOB, ok for C-collar only [...] need placement eventaully. Venita Pruitt PA-[place] [phone] [place] [phone] [facility] [address] [facility] [place] [address] [phone] Associated attestation - Shlomo Rosenthal MD - 10/15/2017 3:03 PM PDTFormatting of this note m ight be different from the original. I saw and examined Berlin Temple ([id number]) with the TRAUMA team on 10/15/2017. I [...] disposition planning and placement. Shlomo Rosenthal MD Uniform Patrol Police Officer Division of Trauma and Critical Care [...] fractures - Neurosurgery following - Must wear DATABASE MANAGER when OOB, ok for C-collar only [...] availability SASHA RUIZ MD General Surgery Resident, [address] [facility] Pager: [phone] Associated attestation - Magali Elias MD,MPH - 10/14/2017 11:39 AM PDTI saw and evaluat ed the patient. I agree with the findings and the plan of care as documented in the residen t s note. Magali Elias MD,MPH MAGALI ELIAS MD,MPH [address] [place] [address] Sami Maldonado MD - 10/14/2017 1:55 AM [...] Patient being managed in C collar and DATABASE MANAGER. -Developed drainage from previous crani site on 09/23 and concern for possible neuro exam ch sonny. Repeat imaging was stable. Wound sutured at bedside, but developed recurrent wound dis charge. Now s/p cranioplasty explant, washout, wound revision 10/10. - maintain JERONIMO -neuro checks -pain control -routine wound care -Helmet when OOB Sami Maldonado MD Neurosurgery, PGY-2 On-call resident pager [phone] 1:55 AM 10/14/2017 Associated attestation - Magdiel [...] to remove on Saturday. Magdiel Stock MD Manager Biostatistics Department of Neurological Surgery [facility] [place] Sasha Ruiz MD - 10/13/2017 6:39 AM [...] - patient unable to come out of DATABASE MANAGER for now - Will likely need [...] by patient, but wound remains cl zeferino/dry/intact. [place] removed 09/17. #Left hemothorax Chest tube placed [...] extubated SASHA RUIZ MD General Surgery Resident, [address] [facility] [place] Pager: [phone] Associated attestation - Magali Elias MD,MPH - [...] cranio plasty Please page adult resident operations staff specialist security [phone] with questions Sami Black MD, PhD PGY-3, [...] - patient unable to come out of DATABASE MANAGER for now - Will likely need [...] by patient, but wound remains cl zeferino/dry/intact. [place] removed 09/17. #Left hemothorax Chest tube placed [...] VIVAR- Acute Care Nurse Practitioner Trauma Pager [phone] Dallin Deshpande M D - 10/12/2017 8:36 [...] Dallin Bourgeois MD Neurosurgery PGY1 | Pager #[phone] arin Welsh [facility] - 10/11/2017 6:31 AM PDT Trauma [...] - patient unable to come out of DATABASE MANAGER for now - Will likely need [...] with my s upervising physicians. CARIN WELSH, [facility]- [id number] [facility] [place] [address] [facility] [address] Associated attestation - Monster Rucker MD - 10/11/2017 2:37 PM PDTATTENDING ADDENDUM: I saw and examined Berlin Temple with CLASSIFIER OPERATOR Carin Welsh on 10/11 and agree with the asse ssment and plan as outlined in this note and participated in the planning of care. Ms. Fabian maciel has been stable overnight after g tube and cranial washout yesterday. We will plan for tra [place]fer to [place] today. I spent 15 minutes providing critical care exclusive of time spent by Carin Welsh CLASSIFIER OPERATOR. Monster Rucker MD FACS residential tech Division of Trauma, Critical Care, and Acute Care Surgery [phone] Sami Maldonado MD - 10/11/2017 1:41 AM [...] Patient being managed in C collar and DATABASE MANAGER. -Developed drainage from previous crani site on 09/23 and concern for possible neuro exam ch sonny. Repeat imaging was stable. Wound sutured at bedside, but developed recurrent wound dis charge. Now s/p cranioplasty explant, washout, wound revision. -keep incision c/d/I -likely okay with rivers transfer, will confirm with staff -neurochecks, pain control Sami Maldonado MD Neurosurgery, PGY-2 On-call resident pager [phone] 7:33 AM 10/10/2017 Associated attestation - Magdiel [...] He will need a helmet. 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 Magdiel Stock MD Manager Biostatistics Department of Neurological Surgery [facility] [place] Jeovany Villanueva MD - 10/10/2017 5:39 PM [...] MD Neurosurgery Resident 5:40 PM, 10/10/2017 Pager #[phone] hRg agustin PA- C - 10/10/2017 7:57 [...] - patient unable to come out of DATABASE MANAGER for now - Will likely need [...] OR today - Transitioned to [facility] from [facility] - Passed SBT, had cuff [...] by patient, but wound remains cl zeferino/dry/intact. [place] removed 09/17. #Left hemothorax Chest tube placed [...] Department of Surgery Mail Code: [id number] [address] [place] [address] Associated attestation - Monster Rucker MD - [...] Rg Curtis PA-C. Monster Rucker MD FACS residential tech Division of Trauma, Critical Care, and Acute Care Surgery [phone] Sami Maldonado MD - 10/10/2017 7:33 AM [...] Patient being managed in C collar and DATABASE MANAGER. -Developed drainage from previous crani site on 09/23 and concern for possible neuro exam ch sonny. Repeat imaging was stable. Wound sutured at bedside, but now with recurrent wound disc harge. - proceed to OR today for revision - AEDs per primary team or Neurology Sami Maldonado MD Neurosurgery, PGY-2 On-call resident pager [phone] 7:33 AM 10/10/2017 Dallin Deshpande MD - [...] agent? No Dallin Bourgeois MD Neurosurgery PGY1 [id number] enita Pruitt PA-C - 10/09/2017 12:57 PM [...] - patient unable to come out of DATABASE MANAGER for now - Will likely need [...] previous cranioplasty site. Venita Pruitt PA-[place] [phone] [facility] [address] [place] [address] Associated attestation - Chaz Munoz MD - 10/09/2017 3:04 PM PDTI saw and examined th e patient today with Venita Pruitt PA-C, and agree with the assessement and plan as outlined in her note. Plan takeback with NSG, we will place Gabriel-oconnor feeding tube at that time. Chaz Munoz MD, FACS Manager Biostatistics, Trauma, Critical Care and Acute Care Surgery [...] - patient unable to come out of DATABASE MANAGER for now - Will likely need [...] [place] [phone] [facility] [place] [address] [place] [phone] Associated attestation - Chaz Munoz MD - 10/08/2017 12:16 PM PDTI saw and examined th e patient today with KESHAWN Martin, and agree with the assessement and plan a s outlined in her note. No acute events. Seems to be slowly improving from MS. Appreciate ps ychiatry recs. Chaz Munoz MD, FACS Manager Biostatistics, Trauma, Critical Care and Acute Care Surgery [...] - patient unable to come out fo DATABASE MANAGER for now - Will likely need [...] by patient, but wound remains cl zeferino/dry/intact. [place] removed 09/17. #Left hemothorax Chest tube placed [...] G tube [place] [phone] [facility] [place] [address] [facility] [address] [phone] Associated attestation - Chaz Munoz MD - 10/07/2017 11:15 AM PDTI saw and examined th e patient today with KESHAWN Martin, and agree with the assessement and plan a s outlined in her note. Will consider changing to bolus TF. Plan Gabriel-oconnor tube next week. Chaz Munoz MD, FACS Manager Biostatistics, Trauma, Critical Care and Acute Care Surgery [...] p atient unable to come out fo DATABASE MANAGER for now Resolved or chronic issues/Plan: [...] by patient, but wound remains duke n/dry/intact. [place] removed 09/17. #Left hemothorax Chest tube placed [...] issues, including restraints. Venita Pruitt PA-C [place] [phone] [place] [phone] [facility] [address] [place] [address] Associated attestation - Em [...] CUNNINGHAM MD [facility] [address] [place] [address] Venita Pruitt PA-C - 10/05/2017 8:38 AM [...] p atient unable to come out fo DATABASE MANAGER for now Resolved or chronic issues/Plan: [...] by patient, but wound remains dkue n/dry/intact. [place] removed 09/17. #Left hemothorax Chest tube placed [...] issues, including restraints. Venita Pruitt PA-C [place] [phone] [place] [phone] [facility] [address] [place] [address] Associated attestation - Shlomo Rosenthal MD - 10/06/2017 7:28 AM PDTFormatting of this note m ight be different from the original. I saw and examined Berlin Temple ([id number]) with the TRAUMA team on 10/05/2017. I [...] and incen tive spirometry for pulmonary toliet. regulatory manager for disposition planning and placement. Shlomo Rosenthal MD Uniform Patrol Police Officer Division of Trauma and Critical Care [facility], Venita Maciel PA-C - 10/04/2017 6:36 AM PDTFormatting of this note might be different fr om the original. Trauma Acute Care - Progress Note Name: BERILN TEMPLE HPI: Berlin Temple is a67 y.o. [...] (baseline from previous TBI ) Neck: in [place] collar Respiratory: CTA b.l CV: RRR GI: [...] p atient unable to come out fo DATABASE MANAGER for now Resolved or chronic issues/Plan: [...] by patient, but wound remains duke n/dry/intact. [place] removed 09/17. #Left hemothorax Chest tube placed [...] issues, including restraints. Venita Pruitt PA-C [place] [phone] [place] [phone] [facility] [address] [place] [facility] [phone] Associated attestation - Fidelina Shields MD - [...] and only enteral access. Fidelina Shields MD Manager Biostatistics Division of Trauma, Critical Care and Acute Care Surgery Office: [phone] Pager: [phone] Leonor TorresCB - 10/03/2017 3:13 PM PDT [...] (baseline from previous TBI ) Neck: in [place] collar Respiratory: CTA bilaterally, no distress CV: [...] p atient unable to come out fo DATABASE MANAGER for now Resolved or chronic issues/Plan: [...] by patient, but wound remains duke n/dry/intact. [place] removed 09/17. #Left hemothorax Chest tube placed [...] PDTAttending: I saw and examined Berlin Temple ([id number]) with CB Hair on morning rounds 10/03 and agree with the assessment and plan as outlined in this note and participated in the planning of care. Mental status is slightly better, remains sedated but he is interactive and at least somewh at oriented. Enteral nutrition advancing and, as approaches goal, will turn TPN off. Place ment remains a significant issue. Fidelina Shields MD Manager Biostatistics Division of Trauma, Critical Care and Acute Care Surgery Office: [phone] Pager: [phone] July Banegas PA-C - 10/03/2017 12:58 PM [...] the C-collar when in bed then the DATABASE MANAGER when out of bed until 12/01/17. JULY BANEGAS PA-C [facility] [address] [place] [address] Associated attestation - Magdiel Stock MD - 10/04/2017 6:02 PM PDTI performed a history a nd physical examination of the patient and discussed the management with the advanced practi ce provider, July Banegas PA-C. I reviewed the advanced practice provider's note and agree w ith the plan of care as documented. Continue cervical collar and DATABASE MANAGER for 3 months to ensure fracture healing and prevent development of post-fracture cervical kyphosis. Magdiel Stock MD Manager Biostatistics Department of Neurological Surgery [facility] Sherine Sarmiento AGACNP - 10/02/2017 12:54 [...] (baseline from previous TBI ) Neck: in [place] collar Respiratory: CTA bilaterally, lungs symmetrical, equal chest wall rise, no retractions CV: RRR GI: non tender, soft, active BS, last BM 09/30 : Patient voiding without difficulty Extremities: no peripheral edema, wiggles toes and toes pink and well perfused Musculoskeletal: 5/5 sas bi developer strength on right, 3/5 sas bi developer strength on left FEN: on TPN, transitioning [...] AMS & delirium - numerous evaluations by FOOD BEVERAGE ATTENDANT with trials of PO - now s/p [...] . - C-collar at all times, use DATABASE MANAGER when OOB - Follow-up with Neurosurgery [...] will [place] [phone] Associated attestation - Fidelina Shields MD - 10/02/2017 4:40 PM PDTAttending: I saw and examined Berlin Temple ([id number]) with KESHAWN Alexander on mornin g rounds [...] drawn back to midline position. May need chcf enteral access , but is ~4 weeks s/p damage control laparotomy and risk is higher now than it will be in 7- 14 days and if swallow is not improving then will place prior to DC Fidelina Shields MD Manager Biostatistics Division of Trauma, Critical Care and Acute Care Surgery Office: [phone] Pager: [phone] Sherine Sarmiento AGACNP - 10/01/2017 7:27 AM [...] (baseline from previous TBI ) Neck: in [place] collar Respiratory: CTA bilaterally, lungs symmetrical, equal chest wall rise, no retractions CV: RRR GI: non tender, soft, active BS, last BM 09/30 : Patient voiding without difficulty Extremities: no peripheral edema, wiggles toes and toes pink and well perfused Musculoskeletal: 5/ sas bi developer strength on right, 3/5 sas bi developer strength on left FEN: on TPN Heme/ID: [...] AMS & delirium - numerous evaluations by FOOD BEVERAGE ATTENDANT with trials of PO - now s/p modified barium swallow x2 which indicates aspiration - continue NPO - FOOD BEVERAGE ATTENDANT reports that patient working on tongue strength [...] . - C-collar at all times, use DATABASE MANAGER when OOB - Follow-up with Neurosurgery [...] with trauma team and sister. Sherine Sarmiento, [facility] [place] [phone] Associated attestation - Fidelina Shields MD - 10/02/2017 4:40 PM PDTAttending: I saw and examined Berlin Temple ([id number]) with KESHAWN Alexander on mornin g rounds 10/01/17 and agree with the assessment and plan as outlined in this note and partic ipated in the planning of care. Will trial DHT placement today, CT head unchanged. Suspect somnolence is medication side ef fect and, if persistent, may need to wean antipsychotic doses. Fidelina Shields MD Manager Biostatistics Division of Trauma, Critical Care and Acute Care Surgery Office: [phone] Pager: [phone] Christian Kelley PA-C - 09/30/2017 12:21 PM [...] Fixed and dilated on left Neck: in [place] collar Respiratory: CTA bilaterally, lungs symmetrical, equal chest wall rise, no retractions CV: RRR GI: non tender, soft, active BS, last BM 09/30 : Patient voiding without difficulty Extremities: no peripheral edema, wiggles toes and toes pink and well perfused Musculoskeletal: 5/5 sas bi developer strength on right, 3/5 sas bi developer strength on left FEN: on TPN Heme/ID: [...] AMS & delirium - numerous evaluations by FOOD BEVERAGE ATTENDANT with trials of PO - now s/p modified barium swallow x2 which indicates aspiration - continue NPO - FOOD BEVERAGE ATTENDANT reports that patient working on tongue strength [...] . - C-collar at all times, use DATABASE MANAGER when OOB - Follow-up with Neurosurgery on 10/21 with repeat X-rays #Blunt abdominal trauma #Splenic laceration S/p laparotomies x2. Fascia closed 09/02 Wound vac removed by patient, but wound remains duke n/dry/intact. [place] removed 09/17. #Left hemothorax Chest tube placed [...] PDTAttending: I saw and examined Berlin Temple ([id number]) with Christian Kelley PA-C on morning rounds 09/30 and agree with the assessment and plan as outlined in this note and participated in the planning of care. Mentally slower this morning, but non-focal. Received haldol overnight for sleep. Repeat head CT was unchanged so suspect etiology of slowed responsiveness is the antipsychotic dose . FOOD BEVERAGE ATTENDANT believes that, once collar off, may be able to take PO more effectively and thus will hold off on surgical feeding access. TPN is a temporary solution and if patient remains kaye nable will trial DHT tomorrow. Working with psychiatry for medication recommendations. Fidelina Shields MD Manager Biostatistics Division of Trauma, Critical Care and Acute Care Surgery Office: [phone] Pager: [phone] July Banegas PA-C - 09/30/2017 8:23 AM PDTBrief Neurosurgery Wound Check: Wound is dry, without erythema, not fluctuant. No acute swelling. Nylon in place. Will plan to follow peripherally for wound checks and remove nylons on 10/09. JULY BANEGAS PA-C [facility] [address] [place] [address] hristian Kelley PA-C - 09/29/2017 7:15 AM [...] and EOMs intact to exam Neck: in [place] collar Respiratory: CTA bilaterally, lungs symmetrical, equal [...] AMS & delirium - numerous evaluations by FOOD BEVERAGE ATTENDANT with trials of PO - now s/p [...] . - C-collar at all times, use DATABASE MANAGER when OOB - Follow-up with Neurosurgery [...] PDTAttending: I saw and examined Berlin Temple ([id number]) with Christian Kelley PA-C on morning rounds 09/29 and agree with the assessment and plan as outlined in this note and participated in the planning of care. Late entry for 09/29/17. Persistent alterations in conscious and dysphagia. Hopefully with ongoing speech therapy a nd when clear to take c-collar off, will improve ability to take PO. While TPN is not an opt imal chcf strategy, would prefer not to place surgical feeding tube if possible given r elatively recent damage control laparotomy and high risk of Mr. Temple pulling it out. Have tried DHT several times and it seems to worsen delirium and he pulls it out frequently. Tit ration of haldol in conjunction with psychiatry. Fidelina Shields MD Manager Biostatistics Division of Trauma, Critical Care and Acute Care Surgery Office: [phone] Pager: [phone] Christian Kelley PA-C - 09/28/2017 1:01 PM [...] he said, who, ariel? And then the FOIL SPOOLER helped him make a call to her. [...] and EOMs intact to exam Neck: in [place] collar Respiratory: CTA bilaterally, lungs symmetrical, equal [...] very agitated today. - EKG today with [place] QTc calculated to be 428 - optimize [...] AMS & delirium - numerous evaluations by FOOD BEVERAGE ATTENDANT with trials of PO - now s/p [...] . - C-collar at all times, use DATABASE MANAGER when OOB - Follow-up with Neurosurgery [...] to communicate more toyoselin Munoz MD, FACS Manager Biostatistics, Trauma, Critical Care and Acute Care Surgery Chaz Munoz MD - 09/28/2017 10:13 AM PDTTrauma Staff Seen and examined this AM with team. I have concerns abotu behaviour, as he is consistently threatening RN and ancillary staff, even attempting swings. Behavior seems worse at night. I would favor increasing night time Haldol dose, and following EKGs. Chaz Munoz MD, FACS Manager Biostatistics, Trauma, Critical Care and Acute Care Surgery [...] Dallin Bourgeois MD Neurosurgery PGY1 | Pager #[phone] Christian Begum PA-C - 09/27/2017 7:31 AM [...] able to have a linear conversation briefly FOOD BEVERAGE ATTENDANT requesting repeat barium swallow Current meds: I [...] incision healing , suture c/d/I Neck: in DATABASE MANAGER Respiratory: unlabored on room air, lungs [...] AMS & delirium - numerous evaluations by FOOD BEVERAGE ATTENDANT with trials of PO - now s/p [...] . - C-collar at all times, use DATABASE MANAGER when OOB - Follow-up with Neurosurgery [...] [facility] [address] [place] [address] Christian Kelley PA-C - 09/26/2017 6:48 AM [...] posterior scalp crani incision c/d/I Neck: in [place] collar Respiratory: unlabored on room air CV: [...] AMS & delirium - numerous evaluations by FOOD BEVERAGE ATTENDANT with trials of PO - now s/p [...] . - C-collar at all times, use DATABASE MANAGER when OOB - Follow-up with Neurosurgery [...] CUNNINGHAM MD [facility] [address] [place] [address] Christian Kellye PA-C - 09/25/2017 7:49 AM PDTFormatting of [...] HEENT: EOMs intact to exam Neck: in DATABASE MANAGER brace Respiratory: unlabored on room air [...] AMS & delirium - numerous evaluations by FOOD BEVERAGE ATTENDANT with trials of PO - now s/p [...] . - C-collar at all times, use DATABASE MANAGER when OOB - Follow-up with Neurosurgery [...] wnl. Continue TPN. EM E MARJORIE, MD [facility] [address] [place] [address] Christian Kelley PA-C - 09/24/2017 11:07 AM [...] with agitation Having difficulty swallowing again - FOOD BEVERAGE ATTENDANT to re-eval and obtain barium swallow Current [...] HEENT: EOMs intact to exam Neck: in DATABASE MANAGER brace Respiratory: CTA bilaterally, lungs symmetrical, equal chest wall rise, no retractions CV: RRR GI: non distended, last BM 09/23 : good urine output Extremities: SCD's in place, no peripheral edema, wiggles toes and toes pink and well perfu sed Musculoskeletal: 5/5 strength in bilateral sas bi developer (but with slightly weaker on left) , [...] seroquel dose QHS for insomnia/restlessness at [facility] - Haldol 5mg q12hr prn for [...] likely 2/2 AMS & delirium - Failed FOOD BEVERAGE ATTENDANT eval 09/19 & 09/20, made NPO & dobhoff reinserted 09/21 but pulled overnight - Per FOOD BEVERAGE ATTENDANT on 09/21, ok for therapeutic pureed with [...] . - C-collar at all times, use DATABASE MANAGER when OOB - Follow-up with Neurosurgery [...] Start abx for dehiscence. EM CUNNINGHAM MD [facility] [address] [place] [address] Ginette Campos PA-C - 09/24/2017 9:31 AM [...] 4 extremities Unable to assess drift. Motor: Court Worker Bicep Tricep Delt R 5 5 [...] PA-C [facility] [address] [place] [id number] ELLGabriel Atkins AGACNP - 09/23/2017 6:32 AM [...] hiscence, draining minimal serosang fluid Neck: in DATABASE MANAGER brace Respiratory: unlabored on room air [...] seroquel dose QHS for insomnia/restlessness at [facility] - Repeat ECG 09/22 with QTc [...] likely 2/2 AMS & delirium - Failed FOOD BEVERAGE ATTENDANT eval 09/19 & 09/20, made NPO & dobhoff reinserted 09/21 but pulled overnight - Per FOOD BEVERAGE ATTENDANT on 09/21, ok for therapeutic pureed with [...] . - C-collar at all times, use DATABASE MANAGER when OOB - Follow-up with Neurosurgery on 10/21 with repeat X-rays #Blunt abdominal trauma #Splenic laceration S/p laparotomies x2. Fascia closed 09/02 Wound vac removed by patient, but wound remains duke n/dry/intact. [place] removed 09/17. #Left hemothorax Chest tube placed [...] improves Sherine Sarmiento, [facility] [place] [phone] Dallin Deshpande MD - 09/22/2017 8:03 AM [...] Dallin Bourgeois MD Neurosurgery PGY1 | Pager #[phone] herine Atkins, AGACN - 09/22/2017 6:52 AM [...] 24hr events: - Therapeutic purees initiated by FOOD BEVERAGE ATTENDANT yesterday - Trickle feeds via Dobbhoff, pt pulled Dobbhoff yesterday evening- not replaced - LEAD SYSTEMS ANALYST called around 2130 for new left facial [...] sluggish. Slight left facial droop Neck: in [place] collar Respiratory: unlabored on room air CV: [...] seroquel dose QHS for insomnia/restlessness at [facility]- - Repeat ECG 09/22 with Q Tc WNL. - Haldol 5mg q12hr prn for severe agitation #Substance abuse, concern for Alcohol withdrawal - CIWA discontinued 09/08, not scoring. - Thiamine & folate started 09/21 #Dysphagia, risk for aspiration #Protein calorie malnutirtion - likely 2/2 AMS & delirium - Failed FOOD BEVERAGE ATTENDANT eval 09/19 & 09/20, made NPO & dobhoff reinserted 09/21 but pulled overnight - Per FOOD BEVERAGE ATTENDANT on 09/21, ok for therapeutic pureed with [...] . - C-collar at all times, use DATABASE MANAGER when OOB - Follow-up with Neurosurgery [...] when dysphagia & delirium improves Sherine Sarmiento, [facility] [place] [phone] Associated attestation - Shiva Nieto MD,MPH - [...] Surgery [facility] [phone] Sami Black - 09/21/2017 10:25 PM PDTBrief [...] in the morning. Plan: -neuro checks; page [phone] for any decline in neurological examination -pain control -Hard C collar at all times and place DATABASE MANAGER prior to mobilizing OOB. Anticipated duration of Collar/DATABASE MANAGER is 12 weeks -repeat CT head for any new decline in neurological exam and page [phone] -NPO at midnight tonight -please hold tonight's planned dose of Lovenox -further recommendations in the morning Sami Black MD, PhD PGY-3 Resident Neurosurgery [id number] signed by Sami Black at 09/21/2017 10:50 [...] Provena placem ent 24hr events: - Failed FOOD BEVERAGE ATTENDANT eval again yest morning, continued NPO - [...] reactive. Dobbhoff tube in place Neck: in [place] collar Respiratory: unlabored on room air CV: [...] likely 2/2 AMS & delirium - Failed FOOD BEVERAGE ATTENDANT eval 09/19 & 09/20, made NPO & dobhoff reinserted yesterday - Trickle feeds started this am at 20ml/hr, increase very slowly by 10ml every 12 hrs to go al of 75 due to hx of mesenteric hematomas and previous inability to tolerate TF - Per FOOD BEVERAGE ATTENDANT today, ok for therapeutic pureed with nectar [...] . - C-collar at all times, use DATABASE MANAGER when OOB - Follow-up with Neurosurgery on 10/21 with repeat X-rays #Blunt abdominal trauma #Splenic laceration S/p laparotomies x2. Fascia closed 09/02 Wound vac removed by patient, but wound remains duke n/dry/intact. [place] removed 09/17. #Left hemothorax Chest tube placed [...] & delirium [place] [phone] Associated attestation - Fidelina Shields MD - 09/21/2017 9:36 PM PDTAttending: I saw and examined Berlin Temple ([id number]) with KESHAWN Alexander on mornin g rounds [...] enough to re-trial PO. Fidelina Shields MD Manager Biostatistics Division of Trauma, Critical Care and Acute Care Surgery Office: [phone] Pager: [phone] Sherine Sarmiento, AGACNP - 09/20/2017 7:41 AM [...] haldol given yesterday afternoon for agitation - FOOD BEVERAGE ATTENDANT paged to re-eval in afternoon after concern for aspiration, made NPO by FOOD BEVERAGE ATTENDANT - DARNELL SOLANO Current meds: I have [...] right pupil 3 and reactive Neck: in [place] collar Respiratory: unlabored on room air CV: [...] thick/pureed d iet. Made NPO yesterday by FOOD BEVERAGE ATTENDANT after concern for aspiration. This is likely 2/2 waxing & wan ing delirium & AMS - FOOD BEVERAGE ATTENDANT re-eval today recommend continue NPO d/t overt clinical signs of aspiration - Place Dobbhoff tube and restart feeds, slowly progress to goal - Stop TPN when tolerating tube feeds - FOOD BEVERAGE ATTENDANT will follow closely, as his AMS improves [...] . - C-collar at all times, use DATABASE MANAGER when OOB - Follow-up with Neurosurgery [...] dysphagia & delirium i mproves Sherine Sarmiento, [facility] [place]g [phone] Associated attestation - Fidelina Shields MD - 09/20/2017 9:34 PM PDTAttending: I saw and examined Berlin Temple ([id number]) with KESHAWN Alexander on mornin g rounds [...] dispo planning when able. Fidelina Shields MD Manager Biostatistics Division of Trauma, Critical Care and Acute Care Surgery Office: [phone] Pager: [phone] Mary Medrano MD,MPH - 09/19/2017 6:22 AM [...] downgraded from thin to thick liquids by FOOD BEVERAGE ATTENDANT Current meds: I have independently reviewed current [...] intact, small Right fluctuant pseudomeningocele Neck: in [place] collar Respiratory: unlabored on room air CV: [...] DHT on09/19. - Cleared for diet by FOOD BEVERAGE ATTENDANT, tolerating purees, 749 Calories yesterday - Restart Calorie count: if taking >700 again will be OK for full po diet, otherwise replac e DHT and restart TF - Stop TPN tomorrow regardless - Still considering repeat CT abdomen/pelvis #Dysphagia DHTreplaced overnight 09/07. TF held due to emesis and possible ileus, aspiration risk. T pulled overnight on 09/18 - FOOD BEVERAGE ATTENDANT as able Resolved or chronic issues/Plan: #BIG 3 TBI #Right synthetic cranioplasty Neurosurgery consulted. Non-operative management. Last head CT 09/12 stable. Expected pseudo meningocele. Left-sided deficits consistent with baseline. - Stat head CT for any neurologic decline #C7 bilateral lamina fractures #C6-T2 spinous process fractures Neurosurgery consulted. Non-operative management. Upright cervical X-rays completed on 09/14 . - C-collar at all times, use DATABASE MANAGER when OOB - Follow-up with Neurosurgery [...] M.D., M.P.H. Neurological Surgery Resident PGY-1 Pager: [phone] Associated attestation - Fidelina Shields MD - 09/19/2017 1:36 PM PDTAttending: I saw and examined Berlin Temple ([id number]) with the residents on morning rounds 09/19/17 and agree with the assessment and plan as outlined in this note and participated in the plan aashish of care. Improving po intake, will titrate TPN. Plan to DC TPN tomorrow and transition to PO vs PO + TF depending on calorie counts. Once of restraints will begin looking for placement. Fidelina Shields MD Manager Biostatistics Division of Trauma, Critical Care and Acute Care Surgery Office: [phone] Pager: [phone] Mary Medrano MD,MPH - 09/18/2017 6:17 AM [...] fascial closure, Provena placem ent 24hr events: [place] removed yesterday Small emesis overnight, nausea resolved [...] fluctuant pseudomeningocele,Dobhoff tubein p lace Neck: in [place] collar Respiratory: unlabored on room air CV: [...] holding TF - Cleared for diet by FOOD BEVERAGE ATTENDANT, tolerating small quantities of purees - Will need repeat CT A/P within 1-2 days #Hypervolemia I&O approaching even. Appears to have been auto-diuresing. - Continue to monitor urine output - Monitor electrolytes, replete prn #Dysphagia DHTreplaced overnight 09/07. TF held due to emesis and possible ileus, aspiration risk. - FOOD BEVERAGE ATTENDANT as able #C7 bilateral lamina fractures #C6-T2 spinous process fractures Neurosurgery consulted. Non-operative management. Upright cervical X-rays completed on 09/14 . - C-collar at all times, use DATABASE MANAGER when OOB - Follow-up with Neurosurgery [...] M.D., M.P.H. Neurological Surgery Resident PGY-1 Pager: [phone] signed by Fidelina Shields MD at 09/19/2017 3:58 PM PDT Associated attestation - Fidelina Shields MD - 09/19/2017 3:58 PM PDTAttending: I saw and examined Berlin Temple ([id number]) with the residents on morning rounds 09/18/17 and agree with the assessment and plan as outlined in this note and participated in the plan aashish of care. Fidelina Shields MD Manager Biostatistics Division of Trauma, Critical Care and Acute Care Surgery Office: [phone] Pager: [phone] Mary Medrano MD,MPH - 09/17/2017 6:26 AM [...] fluctuant pseudomeningocele,Dobhoff tubein p lace Neck: in [place] collar Respiratory: unlabored on room air CV: [...] holding TF - Cleared for diet by FOOD BEVERAGE ATTENDANT, tolerating small quantities of purees #Hypervolemia I&O approaching even. Appears to have been auto-diuresing. - Continue to monitor urine output - Monitor electrolytes, replete prn #Dysphagia DHTreplaced overnight 09/07. TF held due to emesis and possible ileus, aspiration risk. - FOOD BEVERAGE ATTENDANT as able #C7 bilateral lamina fractures #C6-T2 spinous process fractures Neurosurgery consulted. Non-operative management. Upright cervical X-rays completed on 09/14 . - C-collar at all times, use DATABASE MANAGER when OOB - Follow-up with Neurosurgery [...] M.D., M.P.H. Neurological Surgery Resident PGY-1 Pager: [phone] signed by Fidelina Shields MD at 09/17/2017 2:29 PM PDT Associated attestation - Fidelina Shields MD - 09/17/2017 2:29 PM PDTAttending: I saw and examined Berlin Temple ([id number]) with the residents on morning rounds 09/17/17 [...] repeat C T abdomen/pelvis. Fidelina Shields MD Manager Biostatistics Division of Trauma, Critical Care and Acute Care Surgery Office: [phone] Pager: [phone] Venita Pruitt PA-C - 09/16/2017 6:45 AM [...] HEENT: DHT in place, CARRI Neck: in [place] collar Respiratory: CTA bilaterally, lungs symmetrical, equal [...] daily - Haldol 5mg q12hr prn - FOOD BEVERAGE ATTENDANT: severe cognitive deficits - continue FOOD BEVERAGE ATTENDANT therapy #Bilious emesis #Ileus #Aspiration #Leukocytosis - bilious emesis overnight, trickle tube feeds stopped; will restart tube feeds slowly this afternoon and determine tolerance - hx of ileus during hospitalization, NG removed 09/14 - Strict NPO per FOOD BEVERAGE ATTENDANT - Bowel meds via DHT - TPN continued #Hypervolemia I&O approaching even. Appears to have been auto-diuresing. - Continue to monitor urine output - Monitor electrolytes, replete prn #Dysphagia DHTreplaced overnight 09/07/17. TF held for bilious vomiting last night - FOOD BEVERAGE ATTENDANT as able - eval from 09/13 with oropharyngeal dysphagia - strict NPO #C7 bilateral lamina fractures #C6-T2 spinous process fractures Neurosurgery consulted. Non-operative management. - C-collar at all times, use DATABASE MANAGER when OOB - Upright films in DATABASE MANAGER completed yesterday - follow up in [...] need eventual placement. Venita Pruitt PA-C [place] [phone] [place] [phone] [place] [facility] [place] [phone] Associated attestation - Fidelina Shields MD - 09/17/2017 3:42 PM PDTAttending: I saw and examined Berlin Temple with Venita Pruitt PA-C on morning rounds 09/16/17 and ag ree with the assessment and plan as outlined in this note and participated in the planning o f care. Ileus precludes advancing tube feeds. Will allow po as tolerated and continue tpn. Fidelina Shields MD Manager Biostatistics Division of Trauma, Critical Care and Acute Care Surgery Office: [phone] Pager: [phone] Dallin Bourgeois MD - 09/15/2017 12:06 PM [...] Mr. Temple. Dallin Bourgeois MD Neurosurgery PGY1 [id number] signed by Dallin Bourgeois MD at 09/15/2017 [...] tube in place and EOMI Neck: in Shinnston collar Respiratory: CTA bilaterally, lungs symmetrical, equal [...] daily - Haldol 5mg q12hr prn - FOOD BEVERAGE ATTENDANT: severe cognitive deficits - continue FOOD BEVERAGE ATTENDANT therapy #Bilious emesis #Ileus #Aspiration #Leukocytosis On [...] with resolving ileus - trickle feeds per assembly line machine operator recommendations started today - TPN [...] emesis and possible ileus, aspiration risk. - FOOD BEVERAGE ATTENDANT as able - eval from 09/13 with oropharyngeal dysphagia - strict NPO #C7 bilateral lamina fractures #C6-T2 spinous process fractures Neurosurgery consulted. Non-operative management. - C-collar at all times, use DATABASE MANAGER when OOB - Upright films in DATABASE MANAGER completed yesterday - will notify NSG [...] alcohol withdrawal and using olanzapine and haldol. FOOD BEVERAGE ATTENDANT will reeval to day. Continue strict NPO and will start TPN. Off abx. EM CUNNINGHAM MD [facility] [address], [place] [address] Mary Medrano MD,MPH - 09/14/2017 6:39 AM [...] fluctuant pseudomeningocele,Dobhoff tubein p lace Neck: in [place] collar Respiratory: sats stable room air, unlabored, [...] emesis and possible ileus, aspiration risk. - FOOD BEVERAGE ATTENDANT as able #C7 bilateral lamina fractures #C6-T2 spinous process fractures Neurosurgery consulted. Non-operative management. - C-collar at all times, use DATABASE MANAGER when OOB - Upright films in DATABASE MANAGER when able Resolved or chronic issues/Plan: [...] M.D., M.P.H. Neurological Surgery Resident PGY-1 Pager: [phone] signed by Shlomo Rosenthal MD at 09/16/2017 11:14 AM PDT Associated attestation - Shlomo Rosenthal MD - 09/16/2017 11:14 AM PDTFormatting of this note m ight be different from the original. I saw and examined [place] Temple ([id number]) with the TRAUMA team on 09/14/2017. I [...] shock, initial encounter (HCC) Shlomo Rosenthal MD [employer] Patrol [employer] Officer Division of Trauma and Critical Care [...] NG tub es in place Neck: in [place] collar Respiratory: sats stable room air, unlabored, [...] emesis and possible ileus, aspiration risk. - FOOD BEVERAGE ATTENDANT as able #C7 bilateral lamina fractures #C6-T2 spinous process fractures Neurosurgery consulted. Non-operative management. - C-collar at all times, use DATABASE MANAGER when OOB - Upright films in DATABASE MANAGER when able Resolved or chronic issues/Plan: [...] M.D., M.P.H. Neurological Surgery Resident PGY-1 Pager: [phone] signed by Greg Paige MD,PhD at 09/13/2017 1:32 PM PDT Associated attestation - Greg Paige MD,PhD - 09/13/2017 1:32 PM PDTEmergency General Young rgery/Trauma Attending Addendum Date of Service: 09/13/2017 I saw and examined Berlin Temple ([id number]) with the resident and agree with the assessmen t and plan as outlined in this note and participated in the planning of care. Greg Paige MD, PhD, FACS excavating machine operator Division of Trauma, Critical Care & Acute Care Surgery [facility] [place] [phone] Mary Medrano MD,MPH - 09/12/2017 6:32 AM [...] NG tub es in place Neck: in [place] collar Respiratory: sats stable room air, unlabored, [...] emesis and possible ileus, aspiration risk. - FOOD BEVERAGE ATTENDANT as able #C7 bilateral lamina fractures #C6-T2 spinous process fractures Neurosurgery consulted. Non-operative management. - C-collar at all times, use DATABASE MANAGER when OOB - Upright films in DATABASE MANAGER when able Resolved or chronic issues/Plan: [...] M.D., M.P.H. Neurological Surgery Resident PGY-1 Pager: [phone] signed by Greg Paige MD,PhD at 09/12/2017 1:24 PM PDT Associated attestation - Greg Paige MD,PhD - 09/12/2017 1:24 PM PDTEmergency General Young rgery/Trauma Attending Addendum Date of Service: 09/12/2017 I saw and examined Berlin Temple ([id number]) with the resident and agree with the assessmen t and plan as outlined in this note and participated in the planning of care. Post-op ileus - continue with NPO/NGT decompression. Consider TPN in the coming days if there is no impro vement. Greg Paige MD, PhD, FACS excavating machine operator Division of Trauma, Critical Care & Acute Care Surgery [facility] [phone] Christian Kelley PA-C - 09/11/2017 3:54 PM [...] and NG tube inn place Neck: in [place] collar Respiratory: course bilaterally and diffuse rhonchi, [...] to emesis and possible aspiration event. - FOOD BEVERAGE ATTENDANT deferring evaluation as patient continues with NGT to suction C7 bilateral lamina fractures C6-T2 spinous process fractures Neurosurgery consulted. Non-operative management. - C-collar at all times, use DATABASE MANAGER when OOB - Upright films in DATABASE MANAGER when able Resolved or chronic issues/Plan: [...] 09/11/2017 I saw and examined Berlin Temple ([id number]) with the ASHLEY and agree with the assessment and plan as outlined in this note and participated in the planning of care. Leukocytosis persists. Etiology unclear. Will obtain CT C/A/P to search for source. Mathew-cx if febrile. Greg Paige MD, PhD, FACS excavating machine operator Division of Trauma, Critical Care & Acute Care Surgery [facility] [phone] Ginette Campos PA-C - 09/10/2017 9:32 AM [...] sensation intact in all 4 extremities Motor: Court Worker Bicep Tricep Delt R 4 4+ [...] C collar at all times and place DATABASE MANAGER prior to mobilizing OOB. Anticipated duration of Collar/DATABASE MANAGER is 12 weeks. -Obtain upright X-rays C spine AP/Lateral when able -Outpatient follow up arranged. Ginette Campos PA-C [facility] [address] [address] Pg [phone] Mary Devine M D,MPH - 09/10/2017 6:27 [...] feeding tu be in place Neck: in [place] collar Respiratory: sats stable on 2L NC, [...] to emesis and possible aspiration event. - FOOD BEVERAGE ATTENDANT as able #C7 bilateral lamina fractures #C6-T2 spinous process fractures Neurosurgery consulted. Non-operative management. - C-collar at all times, use DATABASE MANAGER when OOB - Upright films in DATABASE MANAGER when able Resolved or chronic issues/Plan: [...] M.D., M.P.H. Neurological Surgery Resident PGY-1 Pager: [phone] signed by Greg Paige MD,PhD at 09/10/2017 8:05 PM PDT Associated attestation - Greg Paige MD,PhD - 09/10/2017 8:05 PM PDTEmergency General Young rgery/Trauma Attending Addendum Date of Service: 09/10/2017 I saw and examined Berlin Temple ([id number]) with the resident and agree with the assessmen t and plan as outlined in this note and participated in the planning of care. Greg Paige MD, PhD, FACS excavating machine operator Division of Trauma, Critical Care & Acute Care Surgery [facility] [place] [phone] Mary Medrano MD,MPH - 09/09/2017 6:25 AM [...] feeding tub e in place Neck: in [place] collar Respiratory: unlabored on room air, lungs [...] DHT, which was replaced overnight 09/07/17. 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 Non-operative management. - C-collar at all times, use DATABASE MANAGER when OOB - Upright films in DATABASE MANAGER when able #Fever Febrile on 09/04/17. [...] M.D., M.P.H. Neurological Surgery Resident PGY-1 Pager: [phone] signed by Mary Medrano MD,MPH at 09/09/2017 [...] ccollar at all times, orthotics to provide DATABASE MANAGER brace - T/L cleared - INR <1.4, check daily - Plt >100k - Check Na at least daily Please contact the neurosurgery resident on-call pager [phone] with questions. Rosa Stallworth MD Resident Physician, PGY-1 Otolaryngology - Head and Neck Surgery Pgr [phone] Mary Devine MD ,MPH - 09/08/2017 6:35 [...] feeding tub e in place Neck: in [place] collar Respiratory: unlabored on room air, lungs [...] DHT, which was replaced overnight 09/07/17. 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 Non-operative management. - C-collar for now - Orthotics to fit DATABASE MANAGER brace for OOB activity. #Fever Febrile [...] improvement in encephalopathy , dysphagia, rehab recs. [place] N. Ross, M.D., M.P.H. Neurological Surgery Resident PGY-1 Pager: [phone] signed by Santos Cardozo MD at 09/08/2017 12:04 PM PDT Associated attestation - Santos Cardozo MD - 09/08/2017 12:04 PM PDTI was present with the resident during the history and exam. I discussed the case with the resident and agree with the findings and plan as documented in the resident s note. SANTOS CARDOZO MD [facility] [address] [place] [address] [id number] Gurpreet Foy PA-C - 09/07/2017 6:47 AM [...] place Musculoskeletal: Wiggles toes. No LE edema. 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 Don/Doff while in [...] Department of Surgery Mail Code: L611 [address] [place] [address] Jeovany Meade MD - 09/07/2017 4:05 AM PDT NEUROSURGERY PROGRESS NOTE INTERVAL UPDATE: Extubated during day yesterday Needs some NT suction Orthotic to fit DATABASE MANAGER this AM OBJECTIVE: Last 24 hour [...] ccollar at all times, orthotics to proved DATABASE MANAGER brace - T/L cleared - INR <1.4, check daily - Plt >100k - Check Na at least daily Please contact the neurosurgery resident on-call pager [phone] with questions. Jeovany Villanueva MD Neurosurgery Resident Pager #[phone] NS pager #[phone] Janessa Biggs ACN P - 09/06/2017 5:42 [...] Critical Care, and Acute Care Surgery Pager #[phone] Janessa Biggs ACNP - 09/06/2017 8:00 AM [...] traum a survey was done at [facility] in [facility] which identified the above listed [...] with my s upervising physicians. JANESSA STEEL [facility] Division of Trauma Department of Surgery Mail Code: L611 [address] [place] [address] Associated attestation - Santos Cardozo MD - [...] to face t janie with this patient. [id number] Sami Maldonado MD - 09/06/2017 1:48 AM [...] Please contact the neurosurgery resident on-call pager [phone] with questions. Sami Maldonado MD Neurosurgery, PGY-2 [...] traum a survey was done at [facility] in [facility] which identified the above listed [...] with my s upervising physicians. JANESSA STEEL [facility] Division of Trauma Department of Surgery Mail Code: L611 [address] [place] [address] Associated attestation - Santos Cardozo MD - [...] face to face time with this patient. [id number] Sami Maldonado MD - 09/05/2017 4:32 AM [...] Please contact the neurosurgery resident on-call pager [phone] with questions. Sami Maldonado MD Neurosurgery, PGY-2 [...] Care, and Acute Care Surgery First Call: [phone] oloJanessa mehta ACNP - 09/04/2017 6:20 AM [...] traum a survey was done at [facility] in [facility] which identified the above listed [...] with my s upervising physicians. JANESSA STEEL [facility] Division of Trauma Department of Surgery Mail Code: L611 [address] [place] [address] Associated attestation - Santos Cardozo MD - [...] face to face time with this patient. [id number] Sami Maldonado MD - 09/04/2017 3:41 AM [...] and strong handgrip LUE intermittent weak hand sas bi developer, flicker flexor to nox RLE follows with [...] Please contact the neurosurgery resident on-call pager [phone] with questions. Sami Maldonado MD Neurosurgery, PGY-2 [...] Evaristo Mendez MD Department of Orthopaedics p [phone] Moo Shaffer MD - 09/03/2017 6:17 AM [...] 09/02/17 0640 Gross per 24 hour Intake 11949.73 ml Output 4075 ml Net 8770.73 ml [...] Call team 19/11 for questions: Team Pager [phone] Associated attestation - Santos Cardozo MD - [...] time with this patient. SANTOS CARDOZO MD [address] [place] [address] [id number] Sami Maldonado MD - 09/03/2017 2:50 AM [...] and strong handgrip LUE intermittent weak hand sas bi developer, flicker flexor to nox BLE follows with [...] Please contact the neurosurgery resident on-call pager [phone] with questions. Sami Maldonado MD Neurosurgery, PGY-2 [...] wit h the collar. Magdiel Stock MD Manager Biostatistics Department of Neurological Surgery [facility] MD - 09/02/2017 8:07 AM [...] Evaristo Mendez MD Department of Orthopaedics p [phone] Moo Shaffer MD - 09/02/2017 7:06 AM [...] 09/02/17 0640 Gross per 24 hour Intake 63152.73 ml Output 4075 ml Net 8770.73 ml [...] Call team 19/11 for questions: Team Pager [phone] Associated attestation - Santos Cardozo MD - [...] time with this patient. SANTOS CARDOZO MD [facility] [address] [address] [place] [address] [id number] George Shah MD - 09/02/2017 6:45 AM [...] Drains:240] 08/31 2300 - 09/01 2300 In: 64588.5 [I.V.:98008.5] Out: 3480 [Urine:1510; Drains:1470] No Data Recorded [...] and strong handgrip LUE intermittent weak hand sas bi developer, no movement to nox BLE follows with [...] Please contact the neurosurgery resident on-call pager [phone] with questions. Sami Maldonado MD Neurosurgery, PGY-2 [...] MD, PhD PGY-3, Neurosurgery 5:22 PM, 09/01/2017 [id number] signed by Sami Black at 09/01/2017 5:27 [...] KATIA IQBAL MD Orthopaedic Surgery PGY-4 Pager: [phone] George Cowan MD - 09/01/2017 2:16 PM [...] can be found in [facility], under the results review tab for ([facility]) Interventional Radiology. Alternatively, they can be found in [facility] under nima rt review, imaging tab. Full report can also be found in [employer] as REPORT under the specifie d procedure. Please call IR for any questions. Sami Dover - 09/01 9:35 AM PDTBrief Progress Note I attempted to contact the patient's significant other, Magali, at [phone] as listed in the chart for consent. However, there was no answer. I did leave a message asking for call back. In the meantime, I will pursue two-attending consent for OR so there is no delay if I lizabeth nue to be unable to contact an appropriate consentor for this patient. Sami Black MD, PhD PGY-3 Resident Neurosurgery [id number] signed by Sami Black at 09/01/2017 9:37 [...] reviewed current medication Labs: [facility] Significant Results reviewed Imaging: I have [...] Call team 19/11 for questions: Team Pager [phone] Associated attestation - Fidelina Shields MD - 09/01/2017 6:55 PM PDTICU Attending: I saw and examined Berlin Temple ([id number]) with the residents on 09/01/17 and agree [...] event note this morning. Fidelina Shields MD Manager Biostatistics Division of Trauma, Critical Care and Acute Care Surgery Office: [phone] Pager: [phone] This has been electronically signed by Fidelina [...] Please contact the neurosurgery resident on-call pager [phone] with questions. Shiva White MD Neurological Surgery [...] proceed with MRI. Chaz Munoz MD, FACS Manager Biostatistics, Trauma, Critical Care and Acute Care Surgery [...] DEPT OF | [address] | [place], [place] | | | CARDIOLOGY | [address] | [address] | | + + + + + [...] | | | LABORATORY | | | [facility] | | | SERVICES, | | | [...] [facility] | [address] | [place] [address] | | | SERVICES, CORE | [address] [...] [facility] | [address] | [place] [address] | | | SERVICES, CORE | [address] [...] | [facility] | [address] | [place], [place] | | | CARDIOLOGY | [address] | [address] | | + + + + + [...] [facility] | [address] | [place] [address] | | | SERVICES, CORE | VILMA [...] DEPT OF | [address] | [place], [place] | | | CARDIOLOGY | [address] | [address] | | + + + + + [...] Note | + + | Service Account, [employer] Res In Interface - 12/03/2017 4:56 PM [...] CENTER LABORATORY | [address] | [place] [address] | | | NATALEE WORTHINGTON | [address] [...] Note | + + | Service Account, [email or web address] Res In Interface - 12/03/2017 10:30 AM [...] DEPT OF | [address] | [place], [place] | | | CARDIOLOGY | [address] | [address] | | + + + + + [...] [facility] | [address] | [place] [address] | | | SERVICES, CORE | [address] [...] - | | | | | | [place] | | + +-------+ + + + + + | Specimen | + + | Blood - Blood | | (substance) | + + + + + + + | Performing | Address | City/State/Zipcode | Phone Number | | Organization | | | | + + + + + | [facility] | [address] | [place] [address] | | | [place] | | | | + + + [...] + + | [facility] | [address] | [place] [address] | | | SERVICES, CORE | PARK [...] + | [facility] | [address] | [place] [address] | | | SERVICES, CORE | [address] [...] CENTER LABORATORY | [address] | [place] [address] | | | SERVICES, CORE | PARK [...] | | | LABORATORY | | | [facility] | | | SERVICES, | | | [...] [facility] | [address] | [place] [address] | | | SERVICES, CORE | PARK [...] | + + + + + | [facility] | [address] | [place] [address] | | | SERVICES, NATALEE | [address] | | | + + + + + 12 LEAD ECG (11/30/2017 4:03 PM PDT) + + + + + + | Component | Value | Ref Range | Performed | Pathologist | | | | | At | Signature | + + + + + + | VENTRICULAR | 60 | bpm | [facility] | | | RATE | | [...] DEPT OF | [address] | [place], [place] | | | CARDIOLOGY | [address] | [address] | | + + + + + [...] DEPT OF | [address] | [place], [place] | | | CARDIOLOGY | [address] | [address] | | + + + + + [...] | | | LABORATORY | | | [facility] | | | SERVICES, | | | [...] [facility] | [address] | [place] [address] | | | SERVICES, CORE | VILMA [...] CENTER LABORATORY | [address] | [place] [address] | | | SERVICES, CORE | [address] | | | + + + + + 12 LEAD ECG (11/27/2017 11:03 AM PDT) + + + + + + | Component | Value | Ref Range | Performed | Pathologist | | | | | At | Signature | + + + + + + | VENTRICULAR | 56 | bpm | [facility] | | | RATE | | [...] + + | [facility] | [address] | [place], [place] | | | CARDIOLOGY | [address] | [address] | | + + + + + [...] Note | + + | Service Account, [employer] In Interface - 11/26/2017 12:36 PM PDT [...] + | [facility] | [address] | [place] [address] | | | [facility] | | | | + + + [...] CENTER LABORATORY | [address] | [place] [address] | | | SERVICES, CORE | P[address] [...] CENTER LABORATORY | [address] | [place] [address] | | | SERVICES, CORE | [address] | | | + + + + + TRIGLYCERIDES, PLASMA (11/25/2017 5:30 AM PDT) + +-------+ + + + | Component | Value | Ref Range | Performed | Pathologist | | | | | At | Signature | + +-------+ + + + | TRIGLYCERID | 119 | <150 mg/dL | [facility] | | | ES | | | [...] [facility] | [address] | [place] [address] | | | SERVICES, CORE | PARK [...] [facility] | [address] | [place] [address] | | | SERVICES, CORE | V[address] [...] | | | LABORATORY | | | [facility] | | | SERVICES, | | | [...] [facility] | [address] | [place] [address] | | | SERVICES, CORE [...] CENTER LABORATORY | [address] | [place] [address] | | | NATALEE WORTHINGTON | VILMA [...] DEPT OF | [address] | [place], [place] | | | CARDIOLOGY | [address] | [address] | | + + + + + [...] DEPT OF | [address] | [place], [place] | | | CARDIOLOGY | [address] | [address] | | + + + + + [...] [facility] | [address] | [place], [place] | | | CARDIOLOGY | [address] | [address] | | + + + + + [...] [facility] DEPT OF | [address] | [facility] [place] [place] | | | CARDIOLOGY | [address] | [address] | | + + + + + [...] | | | LABORATORY | | | [facility] | | | SERVICES, | | | [...] CENTER LAB[facility]ATORY | [address] | [place] [address] | | | SERVICES, CORE | [address] | | | + + + + + MAGNESIUM, PLASMA (11/21/2017 4:17 AM PDT) + +-------+ + + + | Component | Value | Ref Range | Performed | Pathologist | | | | | At | Signature | + +-------+ + + + | MAGNESIUM,P | 2.1 | 1.6 - 2.6 mg/dL | [facility] | | | [facility] | | | [...] [facility] | [address] | [place] [address] | | | SERVICES, NATALEE | [address] [...] Note | + + | Service Account, [employer] In Interface - 11/19/2017 11:26 AM PDT [...] DEPT OF | [address] | [place], [place] | | | CARDIOLOGY | [address] | [address] | | + + + + + [...] DEPT OF | [address] | [place], [place] | | | CARDIOLOGY | [address] | [address] | | + + + + + [...] LABORATORY | [address] | [place] [address] | | | SERVICES, CORE | [address] [...] CENTER LABORATORY | [address] | [place] [address] | | | SERVICESNATALEE | [address] [...] + | [facility] | [address] | [place] [address] | | | [place] | | | [...] [facility] | [address] | [place] [address] | | | SERVICES, CORE | [address] [...] [facility] | [address] | [place] [address] | | | SERVICES, NATALEE | [address] [...] | | | LABORATORY | | | [facility] | | | SERVICES, | | | [...] [facility] | [address] | [place] [address] | | | SERVICES, CORE | [address] [...] [facility] | [address] | [place] [address] | | | SERVICES, CORE | VILMA [...] DEPT OF | [address] | [place], [place] | | | CARDIOLOGY | [address] | [address] | | + + + + + [...] DEPT OF | [address] | [place], [place] | | | CARDIOLOGY | [address] | [address] | | + + + + + [...] CENTER LAB[facility]ATORY | [address] | [place] [address] | | | NATALEE WORTHINGTON | [address] [...] OF | [address] | [place], [place] | | | CARDIOLOGY | [facility] | [address] | | + + + + + [...] | | | LABORATORY | | | [facility] | | | SERVICES, | | | [...] + + | Performing | Address | City/State/[facility] | Phone Number | | Organization | | | | + + + + + | [facility] | [address] | [place] [address] | | | NATALEE WORTHINGTON | [address] [...] [facility] | [address] | [place] [address] | | | SERVICES, CORE | VILMA [...] + + | [facility] | [address] | [place], [place] | | | CARDIOLOGY | [address] | [address] | | + + + + + [...] CENTER LAB[facility]ORY | [address] | [place] [address] | | | SERVICES, CORE | [address] [...] | | | LABORATORY | | | [facility] | | | SERVICES, | | | [...] [facility] | [address] | [place] [address] | | | SERVICES, CORE | [address] [...] + | [facility] | [address] | [place] [address] | | | [place] | | | [...] Note | + + | Service Account, [employer] In Interface - 11/12/2017 1:46 PM PDT [...] | [facility] DEPT OF | [address] | [place], [place] | | | CARDIOLOGY | [address] | [address] | | + + + + + [...] [facility] | [address] | [place] [address] | | | NATALEE WORTHINGTON | [address] [...] | | [facility] - | | | [place] | | | SPEP | | | [...] | 0.18 | 0.10 - 0.40 | [facility] - | | | SER[facility] - | [...] | + + + + + | [facility] - | [address] | [place] [address] | | | [place] | | | [...] [facility] | [address] | [place], [place] | | | CARDIOLOGY | [address] | [address] | | + + + + + [...] CENTER LAB[facility]ATORY | [address] | [place] [address] | | | SERVICES, NATALEE | [address] [...] + | [facility] | [address] | [place] [address] | | | [place] | | | [...] [facility] | [address] | [place] [address] | | | NATALEE WORTHINGTON | V[address]MA [...] | [facility] | [address] [facility] | [place] [address] | | | SERVICES, CORE | [address] [...] [facility] | [address] | [place] [address] | | | SERVICES, CORE | [address] [...] | | | LABORATORY | | | [facility] | | | SERVICES, | | | [...] | [facility] | [address] | [place] [address] | | | SERVICES, CORE | P[address] [...] [facility] | [address] | [place] [address] | | | NATALEE WORTHINGTON | VILMA [...] [facility] | [address] | [place] [address] | | | SERVICES, CORE | VILMA [...] | | | LABORATORY | | | [facility] | | | SERVICES, | | | [...] CENTER LAB[facility]ATORY | [address] | [place] [address] | | | SERVICES, CORE | VILMA [...] DEPT OF | [address] | [place], [place] | | | CARDIOLOGY | [address] | [address] | | + + + + + [...] [facility] | [address] | [place] [address] | | | NATALEE WORTHINGTON | PARK [...] | | | LABORATORY | | | [place] | | | SERVICES, | | | [...] [facility] | [address] | [place] [address] | | | SERVICES, CORE | PARK [...] [facility] | [address] | [place] [address] | | | SERVICES, CORE | PARK [...] | | | LABORATORY | | | [place] | | | SERVICES, | | | [...] [facility] | [address] | [place] [address] | | | NATALEE WORTHINGTON | VILMA [...] Note | + + | Service Account, [email or web address] Res In Interface - 11/08/2017 2:31 PM [...] [facility] | [address] | [place] [address] | | | SERVICES, NATALEE | VILMA [...] | | | LABORATORY | | | [place] | | | SERVICES, | | | [...] [facility] | [address] | [place] [address] | | | ELIN, NATALEE | VILMA [...] DEPT OF | [address] | [place], [place] | | | CARDIOLOGY | [address] | [address] | | + + + + + [...] | [facility] | [address] | [place], [place] | | | CARDIOLOGY | [address] | [address] | | + + + + + [...] | | | LABORATORY | | | [place] | | | SERVICES, | | | [...] + | [facility] | [address] | [place] [address] | | | SERVICES, CORE | PARK [...] LABORATORY | [address] | [place] [address] | | | SERVICES, CORE | PARK [...] + + + + | PRODUCT | [id number] | | [facility] | | | UNIT [...] + + + + | EXPIRATION | [id number] | | [facility] | | | DATE [...] + + + + | BLOOD | [id number] | | [facility] | | | PRODUCT [...] [facility] | [address] | [place] [address] | | | SERVICES, | [address] [...] + + + + | PRODUCT | [id number] | | [facility] | | | UNIT [...] + + + + | EXPIRATION | [id number] | | [facility] | | | DATE [...] + + + + | BLOOD | [id number] | | [facility] | | | PRODUCT [...] | + + + + + | [facility] | [address] | [place] [address] | | | SERVICES, | [address] [...] [facility] | [address] | [place] [address] | | | NATALEE WORTHINGTON | VILMA [...] [facility] | [address] | [place] [address] | | | NATALEE WORTHINGTON | VILMA [...] | | | LABORATORY | | | [place] | | | SERVICES, | | | [...] [facility] | [address] | [place] [address] | | | SERVICES, CORE | [address] | | | + + + + + OPERATION RECORD (11/06/2017 12:27 AM PDT) + + | Procedure Note | + + | Magdiel Stock MD - 11/06/2017 12:27 AM PDT Date of Service: 11/05/2017 Attending | | Surgeon: Magdiel Stock MD Valet Parker(s): Rg Aiken MD | | Preoperative Diagnoses: [...] his head was placed in a horseshoe irrigator head with his C-collar still | | [...] the incision down to the cranium. Once [place] | | skull was reached circumferentially around the prior incision, a #1 [place] was used | | to subperiosteally dissect [...] for this encounter.Sonal Nunez, | | СЕРГЕЙ [id number] [place], [place] | | [id number] Orina, MDJB/MODLDD: 11/05/2017 20:38:01DT: 11/06/2017 | | 00:27:33Job #: [id number] | |HATTIE/DUC | | | | | | /[id number] | + + CT HEAD WO CONTRAST [...] the report as now presented. Final signature: Danile Armijo MD | | | 11/05/2017 8:19 [...] Surgeon: Magdiel | | | MD Dayami Valet Parker: Rg Aiken MD Pre-op Diagnosis: | | [...] PGY-4 Neurological Surgery Pager | | | [phone] | | + + + CAPILLARY BLOOD [...] [facility] | [address] | [place], [place] | | | [facility] | [address] | [address] | | | TESTS | | | [...] [facility] | [address] | [place], [place] | | | GLORIA GENAO OF [facility] | [facility] | [address] | | | TESTS | | | [...] Note | + + | Service Account, [employer] In Interface - 11/05/2017 11:31 AM PDT [...] + + + | [email or web address] | [address] | [place] [address] | | | SERVICES, CORE | PARK [...] [facility] | [address] | [place] [address] | | | SERVICES, CORE | PARK [...] | | | LABORATORY | | | [place] | | | SERVICES, | | | [...] [facility]ENTER [facility] | [address] | [place] [address] | | | SERVICES, CORE | PARK [...] 1.00 | 0.90 - 1.20 INR | [facility] | | | | | [...] CENTER LAB[facility] | [address] | [place] [address] | | | NATALEE WORTHINGTON | VILMA [...] + + + + | PRODUCT | [id number] | | [facility] | | | UNIT [...] + + + + | EXPIRATION | [id number] | | [facility] | | | DATE [...] + + + + | BLOOD | [id number] | | [facility] | | | PRODUCT [...] [facility] | [address] | [place] [address] | | | SERVICES, | [address] [...] + + + + | PRODUCT | [id number] | | [facility] | | | UNIT [...] + + + + | EXPIRATION | [id number] | | [facility] | | | DATE [...] + + + + | BLOOD | [id number] | | [facility] | | | PRODUCT [...] | + + + + + | [facility] | [address] | [place] [address] | | | SERVICES, | [address] [...] [facility] | [address] | [place] [address] | | | NATALEE WORTHINGTON | VILMA [...] [facility] | [address] | [place] [address] | | | SERVICES, | [address] [...] + + + | [email or web address] | [address] | [place] [address] | | | SERVICES, | [address] [...] | [facility] | [address] | [place] [address] | | | SERVICES, CORE | [address] | | | + + + + + 12 LEAD ECG (11/04/2017 8:35 AM PDT) + + + + + + | Component | Value | Ref Range | Performed | Pathologist | | | | | At | Signature | + + + + + + | VENTRICULAR | 71 | bpm | [facility] | | [...] [facility] | [address] | [place], [place] | | | CARDIOLOGY | [address] | [address] | | + + + + + [...] + + + + + | [facility] | [address] | [place] [address] | | | SERVICES, CORE | VILMA [...] [facility] | [address] | [place] [address] | | | SERVICES, CORE | PARK [...] + | [facility] | [address] | [place] [address] | | | [place] | | | [...] [facility] | [address] | [place] [address] | | | NATALEE WORTHINGTON | PARK [...] [facility] | [address] | [place] [address] | | | SERVICES, CORE | VILMA [...] | | | LABORATORY | | | [place] | | | SERVICES, | | | [...] [facility] | [address] | [place] [address] | | | NATALEE WORTHINGTON | VILMA [...] [facility] | [address] | [place] [address] | | | NATALEE WORTHINGTON | PARK [...] [facility] | [address] | [place] [address] | | | SERVICES, CORE | VILMA [...] | | | LABORATORY | | | [place] | | | SERVICES, | | | [...] [facility] | [address] | [place] [address] | | | SERVICES, CORE | PARK [...] [facility] | [address] | [place] [address] | | | SERVICES, CORE | PARK [...] | | | LABORATORY | | | [place] | | | SERVICES, | | | [...] [facility] | [address] | [place] [address] | | | NATALEE WORTHINGTON | VILMA [...] DEPT OF | [address] | [place], [place] | | | CARDIOLOGY | [address] | [address] | | + + + + + [...] [facility] | [address] | [place] [address] | | | SERVICES, CORE | PARK [...] | | | LABORATORY | | | [place] | | | SERVICES, | | | [...] | [facility] | [address] | [place] [address] | | | NATALEE WORTHINGTON | VILMA [...] DEPT OF | [address] | [place], [place] | | | CARDIOLOGY | [address] | [address] | | + + + + + [...] | | | LABORATORY | | | [place] | | | SERVICES, | | | [...] + | [facility] | [address] | [place] [address] | | | NATALEE WORTHINGTON | [...] [facility]ENTER [facility] | [address] | [place] [address] | | | SERVICES, CORE | PARK [...] [facility] | [address] | [place], [place] | | | [facility] GE[facility] CARE | [address] | [address] | | | TESTS | | | [...] [facility] | [address] | [place] [address] | | | NATALEE WORTHINGTON | PARK [...] | | | LABORATORY | | | [place] | | | SERVICES, | | | [...] [facility] | [address] | [place] [address] | | | SERVICES, CORE | VILMA [...] CENTER RADIOLOGY | | | | | [facility] | | | | + +---------+ [...] [facility] | [address] | [place], [place] | | | [facility] | [address] | [address] | | | TESTS | | | [...] [facility] | [address] | [place] [address] | | | SERVICES, CORE [...] | | | LABORATORY | | | [place] | | | SERVICES, | | | [...] [facility] | [address] | [place] [address] | | | ELIN, NATALEE | PARK [...] [facility] | [address] | [place], [place] | | | [facility] | [address] | [address] | | | TESTS | | | [...] | [facility] | [address] | [place], [place] | | | CARDIOLOGY | [address] | [address] | | + + + + + [...] [facility] | [address] | [place], [place] | | | [facility] | [address] | [address] | | | TESTS | | | [...] [facility] | [address] | [place], [place] | | | [facility] | [address] | [address] | | | TESTS | | | [...] [facility] | [address] | [place] [address] | | | SERVICES, CORE | PARK [...] + | [facility] | [address] | [place] [address] | | | [place] | | | [...] [facility] | [address] | [place] [address] | | | SERVICES, CORE | VILMA [...] [facility] | [address] | [place] [address] | | | SERVICES, CORE [...] [facility] | [address] | [place] [address] | | | SERVICES, CORE | VILMA [...] | | | LABORATORY | | | [place] | | | SERVICES, | | | [...] [facility] | [address] | [place] [address] | | | SERVICES, CORE | VILMA [...] [facility]ENTER [facility] | [address] | [place] [address] | | | SERVICES, CORE | VILMA [...] [facility] | [address] | [place], [place] | | | [facility] | [address] | [address] | | | TESTS | | | [...] [facility] | [address] | [place], [place] | | | [facility] | [address] | [address] | | | TESTS | | | [...] correct | | | patient, procedure, equipment, computer support specialist and site/side marked as | [...] vein. Catheter lot number: | | | [id number] with a length of 55 cm was [...] [facility] | [address] | [place], [place] | | | [facility] | [address] | [address] | | | TESTS | | | [...] OF | [address] | [place], [place] | | | CARDIOLOGY | [facility] | [address] | | + + + + + CAPILLARY BLOOD GLUCOSE (NO CHG), POC (10/27/2017 6:10 AM PDT) + +-------+ + + + | Component | Value | Ref Range | Performed | Pathologist | | | | | At | Signature | + +-------+ + + + | BLOOD | 82 | 70 - 99 mg/dL | [facility] [...] [facility] | [address] | [place], [place] | | | [facility] | [address] | [address] | | | TESTS | | | [...] [facility] | [address] | [place] [address] | | | SERVICES, CORE | PARK [...] | | | LABORATORY | | | [place] | | | SERVICES, | | | [...] [facility]ENTER [facility] | [address] | [place] [address] | | | NATALEE WORTHINGTON | VILMA [...] [facility] | [address] | [place], [place] | | | [facility] | [address] | [address] | | | TESTS | | | [...] [facility] | [address] | [place], [place] | | | [facility] | [address] | [address] | | | TESTS | | | [...] [facility] | [address] | [place], [place] | | | [facility] | [address] | [address] | | | TESTS | | | [...] | [facility] | [address] | [place] [address] | | | NATALEE WORTHINGTON | PARK [...] | | | LABORATORY | | | [place] | | | SERVICES, | | | [...] [facility] | [address] | [place] [address] | | | SERVICES, CORE | VILMA [...] [facility] | [address] | [place], [place] | | | [facility] | [address] | [address] | | | TESTS | | | [...] | | | LABORATORY | | | [place] | | | SERVICES, | | | [...] + | [facility] | [address] | [place] [address] | | | SERVICES, CORE | VILMA [...] [facility] | [address] | [place], [place] | | | [facility] | [address] | [address] | | | TESTS | | | [...] DEPT OF | [address] | [place], [place] | | | CARDIOLOGY | [address] | [address] | | + + + + + [...] [facility] | [address] | [place], [place] | | | [facility] | [address] | [address] | | | TESTS | | | [...] DEPT OF | [address] | [place], [place] | | | CARDIOLOGY | [address] | [address] | | + + + + + [...] [facility] | [address] | [place] [address] | | | SERVICES, CORE | PARK [...] + | [facility] | [address] | [place] [address] | | | [place] | | | [...] [facility] | [address] | [place] [address] | | | NATALEE WORTHINGTON | VILMA [...] CENTER [facility] | [address] | [place] [address] | | | SERVICES, CORE | PARK [...] [facility] | [address] | [place] [address] | | | SERVICES, CORE | PARK [...] [facility] | [address] | [place] [address] | | | SERVICES, CORE | VILMA [...] [facility] | [address] | [place] [address] | | | SERVICES, CORE | PARK [...] [facility] | [address] | [place] [address] | | | SERVICES, CORE | VILMA [...] [facility] | [address] | [place] [address] | | | SERVICES, CORE [...] [facility] | [address] | [place] [address] | | | SERVICES, CORE | PARK [...] [facility] | [address] | [place] [address] | | | SERVICES, CORE | VILMA [...] + | [facility] | [address] | [place] [address] | | | SERVICES, CORE | VILMA [...] | | | LABORATORY | | | [place] | | | SERVICES, | | | [...] | + + + + + | [facility] | [address] | [place] [address] | | | SERVICES, CORE [...] | | | correct patient, procedure, equipment, computer support specialist and site/side | | | [...] | area Basilic vein. Catheter lot number: [id number] with a length of 55 | | [...] + + + | [facility] | [address] | [place], [place] | | | [facility] | [address] | [address] | | | TESTS | | | [...] | | Surgical Critical Care, PGY7 Pager: [phone] | | + + + CAPILLARY BLOOD [...] [facility] | [address] | [place], [place] | | | [facility] | [address] | [address] | | | TESTS | | | [...] [facility] | [address] | [place], [place] | | | [facility] | [facility] | [address] | | | TESTS | | | [...] | | | LABORATORY | | | [place] | | | SERVICES, | | | [...] [facility]ENTER [facility] | [address] | [place] [address] | | | SERVICES, CORE | [address] | | | + + + + + MAGNESIUM, PLASMA (10/24/2017 5:08 AM PDT) + +-------+ + + + | Component | Value | Ref Range | Performed | Pathologist | | | | | At | Signature | + +-------+ + + + | MAGNESIUM,P | 1.7 | 1.6 - 2.6 mg/dL | [facility] [...] [facility] | [address] | [place] [address] | | | SERVICES, CORE | PARK [...] + + + | [facility] | [address] | [place], [place] | | | [facility] | [address] | [address] | | | TESTS | | | [...] [facility] | [address] | [place] [address] | | | SERVICES, CORE | PARK [...] | | | LABORATORY | | | [place] | | | SERVICES, | | | [...] + + + | [email or web address] | [address] | [place] [address] | | | SERVICES, NATALEE | VILMA [...] DEPT OF | [address] | [place], [place] | | | CARDIOLOGY | [address] | [address] | | + + + + + IR GASTROSTOMY TUBE EXCHANGE (10/22/2017 2:42 PM PDT) + + | Specimen | + + | | + + + + + | Narrative | Performed At | + + + | Procedure: Gastrostomy tube exchange Primary attending | [facility] | | ward aide: Shade Goodwin M.D. Preoperative diagnosis: | RADIOLOGY VOICE | | Malfunctioning Gastrostomy tube Postoperative diagnosis: Same | RECOGNITION | | Operations: Operation 1. Removal of existing Gastrostomy tube | | | over a guide wire Operation 2. Placement of 24 Kazakh GABRIEL | | | gastrostomy over guide [...] a stiff glide wire the new 24 Kazakh gastrostomy tube was | | | inserted. [...] Procedure: | | Gastrostomy tube exchangePrimary attending ward aide: Shade Goodwin, | | BrynPreoperative diagnosis: Malfunctioning Gastrostomy tubePostoperative diagnosis: | | SameOperations:Operation 1. Removal of existing Gastrostomy tube over a guide | | wireOperation 2. Placement of 24 Kazakh GABRIEL gastrostomy over guide wireNo sedation was [...] glide wire the | | new 24 Kazakh gastrostomy tube was inserted. The position of [...] stiff g lide wire the new 24 Kazakh | |gastrostomy tube was inserted. The position [...] Note | + + | Service Account, [email or web address] Res In Interface - 10/22/2017 10:34 AM [...] DEPT OF | [address] | [place], [place] | | | CARDIOLOGY | [address] | [address] | | + + + + + [...] [facility] | [address] | [place] [address] | | | NATALEE WORTHINGTON | VILMA [...] | | | LABORATORY | | | [place] | | | SERVICES, | | | [...] [facility] | [address] | [place] [address] | | | SERVICES, CORE | VILMA [...] DEPT OF | [address] | [place], [place] | | | CARDIOLOGY | [address] | [address] | | + + + + + [...] | | | LABORATORY | | | [place] | | | SERVICES, | | | [...] [facility] | [address] | [place] [address] | | | SERVICES, CORE | VILMA [...] CENTER LABORATORY | [address] | [place] [address] | | | SERVICES, CORE | PARK [...] [facility] | [address] | [place] | | | CARDIOLOGY | [address] | [address] | | + + + + + [...] | [facility] | [address] | [place] [address] | | | SERVICES, NATALEE | VILMA [...] | | | LABORATORY | | | [place] | | | SERVICES, | | | [...] [facility] | [address] | [place] [address] | | | SERVICES, CORE | PARK [...] + + | [facility] DE[facility] OF | [address] | [place], [place] | | | CARDIOLOGY | [address] | [address] | | + + + + + [...] | | | LABORATORY | | | [place] | | | SERVICES, | | | [...] [facility] | [address] | [place] [address] | | | SERVICES, CORE | PARK [...] CENTER LAB[facility]ATORY | [address] | [place] [address] | | | SERVICES, CORE | PARK [...] DEPT OF | [address] | [place], [place] | | | CARDIOLOGY | [address] | [address] | | + + + + + [...] | | | LABORATORY | | | [place] | | | SERVICES, | | | [...] [facility] | [address] | [place] [address] | | | SERVICES, CORE | PARK [...] [facility] | [address] | [place] [address] | | | SERVICES, CORE | VILMA [...] | + + | Service Account, [employer] In Interface - 10/15/2017 3:58 PM PDT [...] DEPT OF | [address] | [place], [place] | | | CARDIOLOGY | [address] | [address] | | + + + + + [...] [facility] | [address] | [place], [place] | | | [facility] | [address] | [address] | | | TESTS | | | [...] 09/05/2017 | LABORATORY | | | NATALEE WORHTINGTON | + + + + + + + + | Performing | Address | City/State/Zipcode | Phone Number | | Organization | | | | + + + + + | [facility] | [address] | [place] [address] | | | NATALEE WORTHINGTON | VILMA [...] [facility] | [address] | [place], [place] | | | [facility] | [address] | [address] | | | TESTS | | | [...] DEPT OF | [address] | [place], [place] | | | CARDIOLOGY | [address] | [address] | | + + + + + [...] [facility] | [address] | [place] [address] | | | NATALEE WORTHINGTON | VILMA [...] | | | LABORATORY | | | [place] | | | SERVICES, | | | [...] (H) | 4 - 11 mmol/L | [facility] | | | GAP(ALB | | | [...] + + + | [facility] | [address] | [place] [address] | | | NATALEE WORTHINGTON | VILMA [...] CENTER LABORATORY | [address] | [place] [address] | | | NATALEE WORTHINGTON | PARK [...] [facility] | [address] | [place], [place] | | | [facility] | [address] | [address] | | | TESTS | | | [...] [facility] | [address] | [place], [place] | | | [facility] | [address] | [address] | | | TESTS | | | [...] | [facility] | [address] | [place] [address] | | | SERVICES, NATALEE | PARK [...] | | | LABORATORY | | | [place] | | | SERVICES, | | | [...] [facility] | [address] | [place] [address] | | | SERVICES, CORE | [address] | | | + + + + + OPERATION RECORD (10/12/2017 8:50 PM PDT) + + | Procedure Note | + + | Pilar Cotto MD - 10/12/2017 8:50 PM PDT Date of Service: 10/12/2017 | | Attending Surgeon: Chaz Munoz MD Valet Parker(s): Randell Dixon M.D., | | fellow. George [...] saline. We then | | placed a 19-Kazakh drain deep into the abscess cavity, tracking [...] 10/12/2017 19:50:06DT: 10/12/2017 20:50:54Job #: | | [id number] | + + X-RAY PORTABLE CHEST 1 [...] [facility] | [address] | [place], [place] | | | [facility] | [address] | [address] | | | TESTS | | | [...] [facility] | [address] | [place] [address] | | | SERVICES, CORE | PARK [...] | | | LABORATORY | | | [facility] | | | SERVICES, | | | [...] [facility] | [address] | [place] [address] | | | SERVICES, CORE | [facility] [...] [facility] | [address] | [place] [address] | | | NATALEE [place]TH[place] | [address] [...] [facility] | [address] | [place], [place] | | | CARDIOLOGY | [address] | [address] | | + + + + + [...] DEPT OF | [address] | [place], [place] | | | CARDIOLOGY | [address] | [address] | | + + + + + [...] [facility] | [address] | [place] [address] | | | SERVICES, CORE | PARK [...] [facility] | [address] | [place] [address] | | | SERVICES, CORE | PARK [...] | | | LABORATORY | | | [place] | | | SERVICES, | | | [...] + + | Performing | Address | City/State[facility] | Phone Number | | Organization | | | | + + + + + | [facility] | [address] | [place] [address] | | | NATALEE WORTHINGTON | [address] | | | + + + + + PROCEDURE NOTE (10/10/2017 10:00 PM PDT) + + + | Narrative | Performed At | + + + | Darius Link MD 10/12/2017 11:11 AM OPERATIVE REPORT | | | DATE OF OPERATION: 10/10/2017 ATTENDING SURGEON: 1. Dr. Munoz | | | MEAT PROCESS WORKER: 1. Darius Link MD INDICATIONS: Dysphagia | | | and need for salvage determiner nutrition access PREOPERATIVE DIAGNOSIS: | | | 1.Dysphagia and need for chcf nutrition access | | | POSTOPERATIVE DIAGNOSIS: [...] | | | [place] [id number] Chief Resident | | | Neurosurgery | [...] [facility] | [address] | [place] [address] | | | SERVICES, CORE | PARK [...] | | | LABORATORY | | | [place] | | | SERVICES, | | | [...] [facility] | [address] | [place] [address] | | | SERVICES, CORE | [address] | | | + + + + + MAGNESIUM, PLASMA (10/10/2017 2:02 PM PDT) + +-------+ + + + | Component | Value | Ref Range | Performed | Pathologist | | | | | At | Signature | + +-------+ + + + | MAGNESIUM,P | 1.9 | 1.6 - 2.6 mg/dL | [facility] | | | LISA | | | [...] [facility] | [address] | [place] [address] | | | SERVICES, NATALEE | [address] | | | + + + + + OPERATION RECORD (10/10/2017 12:40 PM PDT) + + | Procedure Note | + + | Magdiel Stock MD - 10/10/2017 12:40 PM PDT Date of Service: 10/10/2017 Attending | | Surgeon: Magdiel Stock MD Valet Parker(s): Cecilia Hernandez, | | . Preoperative Diagnoses: [...] This is a 67-year-old male. Please see [facility] for full details. He | [...] the note for this encounter.Sonal Nunez MDOHSU [id number] [facility] | | [place] [phone] Orina, MDFAH/MODLDD: | | 10/10/2017 11:52:15DT: 10/10/2017 12:40:41Job #: [id number] | | | | | |I was present for the critical portions of the procedure as described in the note for this encounter. | | | |Magdiel Stock MD | | | |Magdiel Stock MD | |[address] | |[address] [facility] | |[facility] | |[place] [address] | |[phone] | | | | | |Magdiel Stock MD | |FAH/MODL | | | | | | /[id number] | + + X-RAY ABDOMEN 1 VIEW [...] + | [facility] | [address] | [place] [address] | | | [place] | | | [...] + | [facility] | [address] | [place] [address] | | | [place] | | | | + + + [...] + | [facility] | [address] | [place] [address] | | | [facility] | | | | + + + [...] + | [facility] | [address] | [place] [address] | | | [place] | | | [...] + | [facility] | [address] | [place] [address] | | | [place] | | | [...] Gram Stain: No squamous epithelial cells | [place] | | Many polymorphonuclear cells No organisms seen | | + + + + + + + + | Performing | Address | City/State/Zipcode | Phone Number | | Organization | | | | + + + + + | [facility] | [address] | [place] [address] | | | [place] | | | | + + + [...] + | [facility] | [address] | [place] [address] | | | [place] | | | [...] Gram Stain: No squamous epithelial cells | [facility] | | Few polymorphonuclear cells No organisms seen | | + + + + + + + + | Performing | Address | City/State/Zipcode | Phone Number | | Organization | | | | + + + + + | [facility] | [address] | [place] [address] | | | [facility] | | | | + [...] | | cells No organisms seen | [place] | + + + + + + + + | Performing | Address | City/State/Zipcode | Phone Number | | Organization | | | | + + + + + | [facility] | [address] | [place] [address] | | | [place] | | | | + + + [...] + | [facility] | [address] | [place] [address] | | | [place] | | | [...] Gram Stain: No squamous epithelial cells | [place] | | Moderate polymorphonuclear cells No organisms seen | | + + + + + + + + | Performing | Address | City/State/Zipcode | Phone Number | | Organization | | | | + + + + + | [facility] | [address] | [place] [address] | | | [place] | | | | + + + [...] + | [facility] | [address] | [place] [address] | | | [place] | | | | + + + [...] + | [facility] | [address] | [place] [address] | | | [place] | | | [...] Gram Stain: No squamous epithelial cells | [facility] | | Moderate polymorphonuclear cells No organisms seen | | + + + + + + + + | Performing | Address | City/State/Zipcode | Phone Number | | Organization | | | | + + + + + | [facility] | [address] | [place] [address] | | | [place] | | | | + + + [...] detected | [facility] - | | | [place] | + + + + + + + + | Performing | Address | City/State/Zipcode | Phone Number | | Organization | | | | + + + + + | [facility] | [address] | [place] [address] | | | [place] | | | | + + + [...] + | [facility] | [address] | [place] [address] | | | [place] | | | [...] + | [facility] | [address] | [place] [address] | | | [place] | | | | + + + [...] + | [facility] | [address] | [place] [address] | | | [place] | | | | + + + [...] | + + + + + | [facility] | [address] | [place] [address] | | | SERVICES, CORE | VILMA [...] [facility] | [address] | [place] [address] | | | NATALEE WORTHINGTON | VILMA [...] CENTER LAB[facility] | [address] | [place] [address] | | | SERVICES, CORE | PARK [...] | | | LABORATORY | | | [place] | | | SERVICES, | | | [...] [facility] | [address] | [place] [address] | | | SERVICES, CORE | VILMA [...] [facility] | [address] | [place], [place] | | | CARDIOLOGY | [address] | [address] | | + + + + + [...] + + + + | PRODUCT | [id number] | | [facility] | | | UNIT [...] + + + + | EXPIRATION | [id number] | | [facility] | | | DATE [...] + + + + | BLOOD | [id number] | | [facility] | | | PRODUCT [...] [facility] | [address] | [place] [address] | | | SERVICES, | [address] [...] + + + + | PRODUCT | [id number] | | [facility] | | | UNIT [...] + + + + | EXPIRATION | [id number] | | [facility] | | | DATE [...] + + + + | BLOOD | [id number] | | [facility] | | | PRODUCT [...] CENTER [facility] | [address] | [place] [address] | | | SERVICES, | [address] [...] [facility] | [address] | [place] [address] | | | SERVICES, | [address] [...] [facility] | [address] | [place] [address] | | | SERVICES, | [address] [...] [facility] | [address] | [place] [address] | | | SERVICES, | [address] [...] valves (2.5 - 3.5) INR APTT | [facility], CORE | | Therapeutic Range: (75 - 120) sec | | | Heparin levels of 0.35 - 0.7 U/mL | | + + + + + + + + | Performing | Address | City/State/Zipcode | Phone Number | | Organization | | | | + + + + + | [facility] | [address] | [place] [address] | | | ELIN, NATALEE | VILMA [...] DEPT OF | [address] | [place], [place] | | | CARDIOLOGY | [address] | [address] | | + + + + + [...] | + + | Service Account, [employer] In Interface - 10/08/2017 10:47 AM PDT [...] [facility] | | | | | [facility] | | | | + +---------+ [...] [facility] | [address] | [place], [place] | | | [facility] | [address] | [address] | | | TESTS | | | [...] [facility] | [address] | [place] [address] | | | SERVICES, CORE | PARK [...] CENTER LAB[facility]ATORY | [address] | [place] [address] | | | SERVICES, CORE | PARK [...] | | | LABORATORY | | | [place] | | | SERVICES, | | | [...] [facility] | [address] | [place] [address] | | | SERVICES, CORE | VILMA [...] P[facility] | [address] | [place], [place] | | | [facility] CARE | [facility] | [address] | | | TESTS | | | [...] [facility] | [address] | [place], [place] | | | GL[facility]IA GE[facility] OF [facility] | [address] | [address] | | | TESTS | | | [...] - [facility] | [address] | [place], [place] | | | [facility] | [facility] | [address] | | | TESTS | | | [...] P[facility]ETT | [address] | [place], [place] | | | [facility] | [facility] | [address] | | | TESTS | | | [...] [facility] | [address] | [place], [place] | | | [facility] | [address] | [address] | | | TESTS | | | [...] CENTER LAB[facility]ORY | [address] | [place] [address] | | | SERVICES, CORE | [address] | | | + + + + + MAGNESIUM, PLASMA (10/07/2017 5:05 AM PDT) + +-------+ + + + | Component | Value | Ref Range | Performed | Pathologist | | | | | At | Signature | + +-------+ + + + | MAGNESIUM,P | 2.1 | 1.6 - 2.6 mg/dL | MODANIELLE [...] [facility] | [address] | [place] [address] | | | SERVICES, NATALEE | VILMA [...] | | | LABORATORY | | | [place] | | | SERVICES, | | | [...] [facility] | [address] | [place] [address] | | | SERVICES, NATALEE | VILMA [...] MARQU[facility] | [address] | [place], [place] | | | [facility] | [facility] | [address] | | | TESTS | | | [...] RAPHAELAM | [address] | [place], [place] | | | [facility] OF [facility] | [address] | [address] | | | TESTS | | | [...] DEPT OF | [address] | [place], [place] | | | CARDIOLOGY | [address] | [address] | | + + + + + [...] [facility] | [address] | [place], [place] | | | [facility] | [address] | [address] | | | TESTS | | | [...] CENTER LAB[facility] | [address] | [place] [address] | | | SERVICES, CORE | PARK [...] [facility] | [address] | [place] [address] | | | SERVICES, CORE | PARK [...] | | | LABORATORY | | | [place] | | | SERVICES, | | | [...] + + + | [email or web address] | [address] [facility] | [place] [address] | | | SERVICES, NATALEE | VILMA [...] PIYUSH | [address] | [place], [place] | | | [facility] OF [facility] | [facility] | [address] | | | TESTS | | | | + + + + + CAPILLARY BLOOD GLUCOSE (NO CHG), POC (10/06/2017 1:04 AM PDT) + +-------+ + + + | Component | Value | Ref Range | Performed | Pathologist | | | | | At | Signature | + +-------+ + + + | BLOOD | 91 | 70 - 99 mg/dL | [facility] [...] [facility] | [address] | [place], [place] | | | [facility] | [address] | [address] | | | TESTS | | | [...] + + | Performing | Address | City/State[facility] | Phone Number | | Organization | | | | + + + + + | [facility] | [address] | [place], [place] | | | [facility] OF [facility] | [facility] | [address] | | | TESTS | | | [...] - [facility] | [address] | [place], [place] | | | [facility] GE[facility] OF [facility] | [facility] | [address] | | | TESTS | | | [...] | [facility] | [address] | [place], [place] | | | CARDIOLOGY | [address] | [address] | | + + + + + [...] [facility] | [address] | [place] [address] | | | NATALEE WORTHINGTON | VILMA [...] | [facility] | [address] [facility] | [place] [address] | | | NATALEE WORTHINGTON | [address]ARK [...] | | | LABORATORY | | | [place] | | | SERVICES, | | | [...] [facility] | [address] | [place] [address] | | | SERVICES, CORE | PARK [...] [facility]USH | [address] | [place], [place] | | | [facility] | [address] | [address] | | | TESTS | | | [...] - [facility] | [address] | [place], [place] | | | [facility] | [facility] | [address] | | | TESTS | | | [...] P[facility]ETT | [address] | [place], [place] | | | [facility] | [address] | [address] | | | TESTS | | | [...] [facility] | [address] | [place], [place] | | | GL[facility]IA GENAO OF [facility] | [address] | [address] | | | TESTS | | | [...] - [facility]USH | [address] | [place], [place] | | | [facility] | [facility] | [address] | | | TESTS | | | [...] [facility] | [address] | [place] [address] | | | SERVICES, CORE | VILMA [...] [facility] | [address] | [place] [address] | | | SERVICES, CORE | PARK [...] | | | LABORATORY | | | B[place] | | | SERVICES, | | | [...] | + + + + + | [facility] | [address] | [place] [address] | | | ELIN, NATALEE | VILMA [...] MARQU[facility] | [address] | [place], [place] | | | [facility] GE[facility] OF [facility] | [facility] | [address] | | | TESTS | | | [...] [facility] | [address] | [place], [place] | | | [facility] | [address] | [address] | | | TESTS | | | [...] [facility] | [address] | [place] [address] | | | SERVICESNATALEE | [address] [...] by | | | | | | [employer],[address] | | | | | | Rogelio Pickard [facility] [place] | | | | | | [address] | | | | | | [phone].Trema [employer]. | | | | | | Gui [...] [facility] | [address] | [place], [place] | | | [facility] | | [address] | | + + + + + [...] + | [facility] | [address] [facility] [address] | [place] [address] | | | SERVICES, CORE | VILMA [...] [facility] | [address] | [place] [address] | | | SERVICES, CORE | VILMA [...] modified from | [facility] | | original media operator's approved specifications. The performance | LABORATORY | | of the FLOOR WORKER WELL SERVICE HIV Combo test, with or without confirmation, was not | SERVICES, | | tested in pediatric patients less than 2 years of age. [facility] | SPECIAL IMM + | | [...] [facility] | [address] | [place] [address] | | | SERVICES, SPECIAL | VILMA [...] MAR[facility] | [address] | [place], [place] | | | [facility] | [address] | [address] | | | TESTS | | | [...] - [facility] | [address] | [place], [place] | | | [facility] | [address] | [address] | | | TESTS | | | [...] [facility] | [address] | [place] [address] | | | SERVICES, NATALEE | VILMA [...] [facility] | [address] | [place] [address] | | | SERVICES, CORE | VILMA [...] | | | LABORATORY | | | [place]HI | | | SERVICES, | | | [...] CENTER [facility]ORY | [address] | [place] [address] | | | SERVICES, CORE | VILMA [...] 96 | 70 - 99 mg/dL | [facility] [...] [facility] | [address] | [place], [place] | | | [facility] | [address] | [address] | | | TESTS | | | [...] [facility] | [address] | [place], [place] | | | [facility] | [address] | [address] | | | TESTS | | | [...] [facility] OF | [address] | [place], [place] | | | CARDIOLOGY | [address] | [address] | | + + + + + [...] Note | + + | Service Account, [employer] In Interface - 10/02/2017 2:07 PM PDT [...] + + | [facility] | [address] [facility] [address] | [place], [place] | | | [facility] | [address] | [address] | | | TESTS | | | [...] Preliminary: Marcelo Morley MD Dictation initiated: Marcelo Molrey MD 10/02/2017 10:20 AM | | + [...] + + + | [facility] | [address] | [place], [place] | | | [facility] | [address] | [address] | | | TESTS | | | [...] [facility] | [address] | [place] [address] | | | SERVICES, CORE | [address] [...] CENTER LAB[facility]ORY | [address] | [place] [address] | | | NATALEE WORTHINGTON | VILMA [...] | | | LABORATORY | | | [place] | | | SERVICES, | | | [...] [facility] | [address] | [place] [address] | | | SERVICES, CORE | VILMA [...] MAR[facility] | [address] | [place], [place] | | | [facility] | [address] | [address] | | | TESTS | | | [...] [facility] | [address] | [place], [place] | | | [facility] | [address] | [address] | | | TESTS | | | [...] Note | + + | Service Account, [email or web address] In Interface - 10/01/2017 2:15 PM [...] [facility] | [address] | [place], [place] | | | [facility]ARE | [address] | [address] | | | TESTS | | | [...] Note | + + | Service Account, [employer] In Interface - 10/01/2017 11:34 AM PDT [...] [facility] | [address] | [place], [place] | | | [facility]IA GE[facility] OF [facility] | [facility] | [address] | | | TESTS | | | [...] CENTER LABORATORY | [address] | [place] [address] | | | SERVICES, CORE | [address] | | | + + + + + MAGNESIUM, PLASMA (10/01/2017 5:25 AM PDT) + +-------+ + + + | Component | Value | Ref Range | Performed | Pathologist | | | | | At | Signature | + +-------+ + + + | MAGNESIUM,P | 2.0 | 1.6 - 2.6 mg/dL | [facility] [...] [facility] | [address] | [place] [address] | | | SERVICES, NATALEE | VILMA [...] | | | LABORATORY | | | [place] | | | SERVICES, | | | [...] [facility] | [address] | [place] [address] | | | SERVICES, CORE | VILMA [...] [facility] | [address] | [place], [place] | | | [facility] | [address] | [address] | | | TESTS | | | [...] [facility] | [address] | [place], [place] | | | [facility] | [address] | [address] | | | TESTS | | | [...] DEPT OF | [address] | [place], [place] | | | CARDIOLOGY | [address] | [address] | | + + + + + [...] [facility] | [address] | [place], [place] | | | GL[facility]IA GE[facility]O OF [facility] | [address] | [address] | | | TESTS | | | [...] - [facility] | [address] | [place], [place] | | | [facility] | [address] | [address] | | | TESTS | | | [...] [facility] | [address] | [place] [address] | | | SERVICES, CORE | VILMA [...] [facility] | [address] | [place] [address] | | | SERVICES, CORE | [address]ARK [...] | | | LABORATORY | | | [place] | | | SERVICES, | | | [...] CENTER LAB[facility]ORY | [address] | [place] [address] | | | NATALEE WORTHINGTON | VILMA [...] RAPHAELAM | [address] | [place], [place] | | | [facility] OF [facility] | [address] | [address] | | | TESTS | | | [...] P[facility] | [address] | [place], [place] | | | GL[facility]IA GE[facility]O OF [facility] | [facility] | [address] | | | TESTS | | | [...] [facility] | [address] | [place], [place] | | | [facility] | [facility] | [address] | | | TESTS | | | [...] DEPT OF | [address] | [place], [place] | | | CARDIOLOGY | [address] | [address] | | + + + + + [...] [facility] | [address] | [place], [place] | | | [facility] CARE | [address] | [address] | | | TESTS | | | [...] [facility]ENTER [facility] | [address] | [place] [address] | | | SERVICES, NATALEE | PARK [...] | | | LABORATORY | | | B[place]AD[place]HI | | | SERVICES, | | | [...] [facility] | [address] | [place] [address] | | | SERVICES, CORE | VILMA [...] CENTER LAB[facility]ORY | [address] | [place] [address] | | | SERVICESNATALEE | [address] [...] RAPHAELAM | [address] | [place], [place] | | | [facility] CARE | [facility] | [address] | | | TESTS | | | [...] [facility] | [address] | [place], [place] | | | [facility] | [address] | [address] | | | TESTS | | | [...] P[facility] | [address] | [place], [place] | | | GLORIA GENAO OF [facility] | [facility] | [address] | | | TESTS | | | [...] DEPT OF | [address] | [place], [place] | | | CARDIOLOGY | [address] | [address] | | + + + + + [...] + + + | [facility] | [address] | [place], [place] | | | [facility] | [address] | [address] | | | TESTS | | | [...] [facility] | [address] | [place] [address] | | | NATALEE WORTHINGTON | VILMA [...] CENTER LAB[facility]ORY | [address] | [place] [address] | | | ELIN, NATALEE | VILMA [...] | | | LABORATORY | | | [place] | | | SERVICES, | | | [...] [facility] | [address] | [place] [address] | | | SERVICES, CORE | VILMA [...] [facility] | [address] | [place], [place] | | | GL[facility] GE[facility] OF [facility] | [address] | [address] | | | TESTS | | | [...] + | [facility] | [address] [facility] [address] | [place], [place] | | | [facility] | [address] | [address] | | | TESTS | | | [...] [facility] | [address] | [place], [place] | | | [facility] CARE | [address] | [address] | | | TESTS | | | [...] [facility] | [address] | [place], [place] | | | [facility] | [address] | [address] | | | TESTS | | | [...] [facility] | [address] | [place] [address] | | | SERVICES, CORE | PARK [...] + | [facility] | [address] [address] | [place] [address] | | | SERVICES, CORE | [address]ARK [...] | | | LABORATORY | | | B[place]HI | | | SERVICES, | | | [...] CENTER LAB[facility]ORY | [address] | [place] [address] | | | SERVICES, CORE | VILMA [...] P[facility] | [address] | [place] | | | [facility] | [address] | [address] | | | TESTS | | | [...] [facility] | [address] | [place] | | | [facility] CARE | [address] | [address] | | | TESTS | | | [...] DEPT OF | [address] | [place], [place] | | | CARDIOLOGY | [address] | [address] | | + + + + + [...] [facility] | [address] | [place], [place] | | | [facility] | [address] | [address] | | | TESTS | | | [...] [facility] | [address] | [place], [place] | | | [facility] | [address] | [address] | | | TESTS | | | [...] - [facility] | [address] | [place], [place] | | | [facility] | [address] | [address] | | | TESTS | | | [...] | [facility] | [address] | [place] [address] | | | SERVICES, NATALEE | PARK [...] + | [facility] | [address] | [place] [address] | | | SERVICES, CORE | VILMA [...] | | | LABORATORY | | | B[place]HI | | | SERVICES, | | | [...] CENTER LAB[facility] | [address] | [place] [address] | | | SERVICES, CORE | VILMA [...] [facility] | [address] | [place], [place] | | | [facility] | [address] | [address] | | | TESTS | | | [...] | + + + + + | [email or web address] | [address] | [place] [address] | | | SERVICES, CORE | VILMA [...] [facility] | [address] | [place] [address] | | | SERVICES, CORE | PARK [...] | | | LABORATORY | | | [place] | | | SERVICES, | | | [...] [facility] | [address] | [place] [address] | | | SERVICES, NATALEE | VILMA [...] [facility] | [address] | [place], [place] | | | CARDIOLOGY | [address] | [address] | | + + + + + [...] Note | + + | Service Account, [email or web address] Res In Interface - 09/24/2017 4:09 PM [...] [facility] | [address] | [place] [address] | | | SERVICES, CORE | VILMA [...] | | | LABORATORY | | | [place] | | | SERVICES, | | | [...] [facility] | [address] | [place] [address] | | | SERVICES, CORE | PARK [...] [facility] | [address] | [place] [address] | | | SERVICES, NATALEE | PARK [...] [facility] | [address] | [place] [address] | | | SERVICES, CORE | PARK [...] | [facility] | [address] | [place] [address] | | | NATALEE WORTH[place] | VILMA [...] | | | LABORATORY | | | [place] | | | SERVICES, | | | [...] [facility] | [address] | [place] [address] | | | SERVICES, CORE | VILMA [...] [facility] | [address] | [place], [place] | | | [facility] | [address] | [address] | | | TESTS | | | [...] [email or web address] | [address] | [place], [place] | | | [facility] | [address] | [address] | | | TESTS | | | [...] [facility] | [address] | [place] [address] | | | SERVICES, CORE [...] [facility] | [address] | [place], [place] | | | CARDIOLOGY | [address] | [address] | | + + + + + [...] [facility] | [address] | [place] [address] | | | SERVICES, CORE | PARK [...] [facility] | [address] | [place] [address] | | | SERVICES, NATALEE | VILMA [...] | | | LABORATORY | | | [place] | | | SERVICES, | | | [...] + | [facility] | [address] | [place] [address] | | | ELIN, NATALEE | VILMA [...] - [facility] | [address] | [place], [place] | | | [facility] | [address] | [address] | | | TESTS | | | [...] | [facility] | [address] | [place] [address] | | | NATALEE WORTHINGTON | VILMA [...] [facility] | [address] | [place] [address] | | | SERVICES, CORE | PARK [...] | | | LABORATORY | | | [place] | | | SERVICES, | | | [...] [facility]ENTER [facility] | [address] | [place] [address] | | | SERVICES, CORE | [address] | | | + + + + + X-RAY ABD LTD FEEDING TUBE EVAL (09/20/2017 7:23 PM PDT) + + | Specimen | + + | | + + + + + | Narrative | Performed At | + + + | EXAM: ABD LTD FEEDING TUBE EVAL INDICATION: DHT placement | [facility] | | TECHNIQUE: Semi-upright portable view [...] Note | + + | Service Account, [email or web address] Res In Interface - 09/20/2017 7:50 PM [...] Note | + + | Service Account, [employer] In Interface - 09/20/2017 5:17 PM PDT [...] [facility] | [address] | [place], [place] | | | CARDIOLOGY | [address] | [address] | | + + + + + [...] + + | [facility] | [address] | [place] [address] | | | SERVICES, CORE | PARK [...] [facility] | [address] | [place] [address] | | | NATALEE WORTHINGTON | VILMA [...] | | | LABORATORY | | | [place] | | | SERVICES, | | | [...] + + + | [facility] [email or web address] | [address] | [place] [address] | | | SERVICES, NATALEE | VILMA [...] CENTER LABORATORY | [address] | [place] [address] | | | SERVICES, CORE | [address] | | | + + + + + MAGNESIUM, PLASMA (09/19/2017 4:32 AM PDT) + +-------+ + + + | Component | Value | Ref Range | Performed | Pathologist | | | | | At | Signature | + +-------+ + + + | MAGNESIUM,P | 2.2 | 1.6 - 2.6 mg/dL | [facility] [...] [facility] | [address] | [place] [address] | | | SERVICES, NATALEE | VILMA [...] | | | LABORATORY | | | [place] | | | SERVICES, | | | [...] [facility] | [address] | [place] [address] | | | SERVICES, NATALEE | VILMA [...] CENTER LABORATORY | [address] | [place] [address] | | | SERVICES, CORE | [address] | | | + + + + + MAGNESIUM, PLASMA (09/18/2017 5:40 AM PDT) + +-------+ + + + | Component | Value | Ref Range | Performed | Pathologist | | | | | At | Signature | + +-------+ + + + | MAGNESIUM,P | 2.3 | 1.6 - 2.6 mg/dL | [facility] | | | [facility] | | | [...] [facility] | [address] | [place] [address] | | | NATALEE WORTHINGTON | VILMA [...] | | | LABORATORY | | | [place]HI | | | SERVICES, | | | [...] | [facility] | [address] | [place] [address] | | | SERVICES, CORE | VILMA [...] Note | + + | Service Account, [employer] In Interface - 09/17/2017 11:53 AM PDT [...] CENTER LABOR[facility]ORY | [address] | [place] [address] | | | SERVICES, CORE | VILMA [...] [facility] | [address] | [place] [address] | | | SERVICES, CORE | [...] | 70 - 99 mg/dL | [facility] | | | PLASMA | | | [...] | | | LABORATORY | | | [place] | | | SERVICES, | | | [...] | [facility] | [address] | [place] [address] | | | SERVICES, [facility] | [address] | | | + [...] Note | + + | Service Account, [employer] In Interface - 09/16/2017 1:34 PM PDT [...] Note | + + | Service Account, [employer] In Interface - 09/16/2017 11:41 AM PDT [...] [facility] | [address] | [place] [address] | | | SERVICES, CORE | PARK [...] [facility] | [address] | [place] [address] | | | SERVICES, CORE | PARK [...] | | | LABORATORY | | | [place] | | | SERVICES, | | | [...] CENTER [facility] | [address] | [place] [address] | | | NATALEE WORTHINGTON | VILMA [...] | location: Unit:[facility] Room: #12 Providers: Attending name: | [...] | pause verifies correct patient, procedure, equipment, computer support specialist | | | and site/side [...] | area Basilic vein. Catheter lot number: [id number] with a length of 55 | | [...] [facility]ENTER LAB[facility] | [address] | [place] [address] | | | SERVICES, CORE | [address] | | | + + + + + MAGNESIUM, PLASMA (09/15/2017 6:02 AM PDT) + +-------+ + + + | Component | Value | Ref Range | Performed | Pathologist | | | | | At | Signature | + +-------+ + + + | MAGNESIUM,P | 2.1 | 1.6 - 2.6 mg/dL | [facility] [...] [facility] | [address] | [place] [address] | | | ELIN, NATALEE | VILMA [...] | | | LABORATORY | | | [place]HI | | | SERVICES, | | | [...] + + + | [facility] [employer] | [address] | [place] [address] | | | SERVICES, CORE | VILMA [...] CENTER LABORATORY | [address] | [place] [address] | | | SERVICES, CORE | VILMA [...] [facility] | [address] | [place] [address] | | | SERVICES, CORE | PARK [...] | | | LABORATORY | | | B[place]HI | | | SERVICES, | | | [...] + | [facility] | [address] | [place] [address] | | | SERVICES, CORE | PARK [...] + | [facility] | [address] | [place] [address] | | | SERVICES, CORE | PARK [...] [facility] | [address] | [place] [address] | | | SERVICES, CORE | PARK [...] | | | LABORATORY | | | [place] | | | SERVICES, | | | [...] | [facility] | [address] | [place] [address] | | | SERVICES, CORE | PARK [...] CENTER LAB[facility]ORY | [address] | [place] [address] | | | NATALEE WORTHINGTON | PARK [...] [facility] | [address] | [place] [address] | | | SERVICES, CORE | VILMA [...] | | | LABORATORY | | | [place] | | | SERVICES, | | | [...] + + + + + | [facility] | [address] | [place] [address] | | | SERVICES, CORE | VILMA [...] Note | + + | Service Account, [email or web address] Res In Interface - 09/12/2017 6:48 AM [...] | [facility] | [address] | [place] [address] | | | SERVICES, CORE | VILMA [...] [facility] | [address] | [place] [address] | | | SERVICES, CORE | PARK [...] | | | LABORATORY | | | [place] | | | SERVICES, | | | [...] | [facility] | [address] | [place] [address] | | | SERVICES, CORE | VILMA [...] + | [facility] | [address] | [place] [address] | | | NATALEE WORTHINGTON | VILMA [...] Note | + + | Service Account, [employer] In Interface - 09/10/2017 2:31 PM PDT [...] [facility] | [address] | [place] [address] | | | SERVICES, CORE | PARK [...] [facility] | [address] | [place] [address] | | | SERVICES, CORE | VILMA [...] [facility] | [address] | [place] [address] | | | NATALEE WORTHINGTON | VILMA [...] CENTER [facility] | [address] | [place] [address] | | | SERVICES, CORE | PARK [...] | | | LABORATORY | | | [place] | | | SERVICES, | | | [...] [facility] | [address] | [place] [address] | | | SERVICES, CORE | PARK [...] [facility] | [address] | [place], [place] | | | CARDIOLOGY | [address] | [address] | | + + + + + [...] Note | + + | Service Account, [email or web address] Res In Interface - 09/10/2017 11:11 AM [...] - [facility] | [address] | [place], [place] | | | [facility] | [address] | [address] | | | TESTS | | | [...] [facility] | [address] | [place] [address] | | | SERVICES, CORE | PARK [...] + | [facility] | [address] | [place] [address] | | | SERVICES, CORE | VILMA [...] | | | LABORATORY | | | [place] | | | SERVICES, | | | [...] [facility] | [address] | [place] [address] | | | SERVICES, CORE [...] [facility] | [address] | [place] [address] | | | SERVICES, CORE | VILMA [...] | | | LABORATORY | | | [place] | | | SERVICES, | | | [...] [facility] | [address] | [place] [address] | | | SERVICES, CORE | PARK [...] + + + | [email or web address] | [address] | [place] [address] | | | SERVICES, CORE | VILMA [...] [facility] | [address] | [place] [address] | | | SERVICES, [facility] | [address] | | | + [...] [facility] | [address] | [place], [place] | | | CARDIOLOGY | [address] | [address] | | + + + + + [...] [facility] | [address] | [place] [address] | | | SERVICES, CORE | VILMA [...] | | | LABORATORY | | | [place] | | | SERVICES, | | | [...] [facility] | [address] | [place] [address] | | | NATALEE WORTHINGTON | VILMA [...] [facility]ENTER [facility] | [address] | [place] [address] | | | SERVICES, NATALEE | PARK [...] | + + + + + | [facility] | [address] | [place], [place] | | | CARDIOLOGY | [address] | [address] | | + + + + + [...] | | | attempt. Midline lot number [id number]; there was positive blood | | | [...] | | | LABORATORY | | | [place] | | | SERVICES, | | | [...] + | [facility] | [address] | [place] [address] | | | SERVICES, CORE | PARK [...] | + + + + + | [facility] | [address] | [place] [address] | | | SERVICES, CORE | VILMA [...] Note | + + | Service Account, [employer] Res In Interface - 09/05/2017 10:16 AM [...] [facility] | [address] | [place] [address] | | | SERVICES, CORE | VILMA [...] [facility] | [address] | [place] [address] | | | NATALEE WORTHINGTON | PARK [...] | | | LABORATORY | | | [place] | | | SERVICES, | | | [...] [facility] | [address] | [place] [address] | | | SERVICES, CORE | VILMA [...] | | | LABORATORY | | | [place] | | | SERVICES, | | | [...] + | [facility] | [address] | [place] [address] | | | ELIN, NATALEE | VILMA [...] tomorrow morning. CB Henson Pager / ID: [phone] | | + + + CULTURE, SPUTUM [...] + | [facility] | [address] | [place] [address] | | | [place] | | | [...] [facility] | [address] | [place] [address] | | | SERVICES, CORE | VILMA [...] | [facility] | | | GRAVITY | [place] performed by | | LABORATORY | | [...] [facility] | [address] | [place] [address] | | | SERVICES, CORE | PARK [...] [facility]ENTER [facility] | [address] | [place] [address] | | | SERVICES, CORE | VILMA [...] [facility] | [address] | [place] [address] | | | SERVICES, CORE | VILMA [...] [facility] | [address] | [place], [place] | | | CARDIOLOGY | [address] | [address] | | + + + + + [...] [facility] | [address] | [place] [address] | | | SERVICES, CORE | VILMA [...] + + | [facility] | [address] | [place] [address] | | | SERVICES, CORE | PARK [...] | | | LABORATORY | | | [place] | | | SERVICES, | | | [...] [facility] | [address] | [place] [address] | | | SERVICES, CORE | PARK [...] [facility] | [address] | [place] [address] | | | SERVICES, NATALEE | VILMA [...] [facility] | [address] | [place], [place] | | | [facility] | [address] | [address] | | | TESTS | | | [...] + | [facility] | [address] | [place], [place] | | | GLORIA GENAO [employer] | [address] | [address] | | | TESTS | | | [...] [facility] | [address] | [place], [place] | | | GLORIA GENAO OF CARE | [address] | [address] | | | TESTS | | | [...] [facility] | [address] | [place], [place] | | | [facility] | [facility] | [address] | | | TESTS | | | [...] detected | AIR[facility] - | | | [place] | + + + + + + + + | Performing | Address | City/State/Zipcode | Phone Number | | Organization | | | | + + + + + | [facility] | [address] | [place] [address] | | | [place] | | | [...] [facility] | [address] | [place] [address] | | | SERVICES, CORE | VILMA [...] Note | + + | Service Account, [employer] In Interface - 09/03/2017 9:54 AM PDT [...] detected | [facility] - | | | [place] | + + + + + + + + | Performing | Address | City/State/Zipcode | Phone Number | | Organization | | | | + + + + + | [facility] | [address] | [place] [address] | | | [place] | | | | + + + [...] [facility] | [address] | [place] [address] | | | SERVICES, CORE | PARK [...] + | [facility] | [address] | [place] [address] | | | SERVICES, CORE [...] | | | LABORATORY | | | [place] | | | SERVICES, | | | [...] [facility] | [address] | [place] [address] | | | SERVICES, CORE | PARK [...] + | [facility] | [address] | [place] [address] | | | SERVICES, [facility] | [address] | | | + + + + + OPERATION RECORD (09/02/2017 6:53 PM PDT) + + | Procedure Note | + + | Fidelina Shields MD - 09/02/2017 6:53 PM PDT Date of Service: 09/02/2017 | | Attending Surgeon: Fidelina Shields MD Valet Parker(s): | | Ajay Garcia MD, resident. Preoperative [...] 09/02/2017 18:15:29DT: 09/02/2017 18:53:52Job #: | | [id number] to federal Medicare and Medicaid regulations I was present for | | the entire procedure.Fidelina Shields MDAssistant ProfessorDepartment of SurgeryOffice: | | [phone]: [id number] has been electronically signed by Fidelina Shields MD, | | 09/03/2017 at 9:11 AM. | | | | | |Fidelina Shields MD | |Manager Biostatistics | |Department of Surgery | |Office: [phone] | |Pager: [phone] | | | |This has been electronically [...] + | [facility] | [address] | [place] [address] | | | SERVICES, CORE | PARK [...] [facility] | [address] | [place] [address] | | | SERVICES, CORE | VILMA [...] + | [facility] | [address] | [place] [address] | | | [place] | | | [...] [facility] | [address] | [place] [address] | | | ELIN, NATALEE | VILMA [...] | | | LABORATORY | | | [place] | | | SERVICES, | | | [...] [facility] | [address] | [place] [address] | | | SERVICES, CORE [...] Note | + + | Service Account, [email or web address] Res In Interface - 09/02/2017 4:25 PM [...] Initial surgical | | | [facility], Surgery [phone] Pursuant | | | to federal Medicare and Medicaid regulations I was present for the | | | entire procedure. Fidelina Shields MD Manager Biostatistics | | | Department of Surgery Office: [phone] Pager: [phone] This has | | | been electronically [...] [facility] | [address] | [place] [address] | | | SERVICES, CORE | VILMA [...] (H) | 0.90 - 1.20 INR | [facility] | | | | | [...] CENTER [facility] | [address] | [place] [address] | | | SERVICES, CORE | [address] | | | + + + + + OPERATION RECORD (09/02/2017 6:51 AM PDT) + ---+ | Procedure Note | + ---+ | Fidelina Shields MD - 09/02/2017 6:51 AM PDT Date of Service: 09/01/2017 | | Attending Surgeon: Fidelina Shields MD Valet Parker(s): Haim Peralta MD. | | Ajay Garcia [...] 09/02/2017 06:17:53DT: 09/02/2017 | | 06:51:37Job #: [id number] to federal Medicare and Medicaid regulations I | | was present for the entire procedure.Fidelina Tenorio ProfessorDepartment of | | SurgeryOffice: [phone]: [id number] has been electronically signed by Fidelina Snyder | | MD Cornelius, 09/02/2017 at 10:40 AM. | | | | | |Pursuant to federal Medicare and Medicaid regulations I was present for the entire elianur e. | | | | | | | |Fidelina Shields MD | |Manager Biostatistics | |Department of Surgery | |Office: [phone] | |Pager: [phone] | | | |This has been electronically [...] [facility] | [address] | [place] [address] | | | SERVICES, CORE [...] [facility] | [address] | [place] [address] | | | SERVICES, CORE | VILMA [...] + + + + | PRODUCT | [id number] | | [facility] | | | UNIT [...] + + + + | EXPIRATION | [id number] | | [facility] | | | DATE [...] + + + + | BLOOD | [id number] | | [facility] | | | PRODUCT [...] + | [facility] | [address] | [place] [address] | | | SERVICES, | [address] [...] [facility] | [address] | [place] [address] | | | SERVICES, CORE | VILMA [...] | | | LABORATORY | | | [place] | | | SERVICES, | | | [...] [facility] | [address] | [place] [address] | | | SERVICES, CORE | PARK [...] [facility] | [address] | [place] [address] | | | SERVICESNATALEE | [address] [...] | | | | INFORMATION: | | [place] | | | | [employer] | [...] (http://www.cdc.gov/mmwr | | | | | | /preview/mmwrhtml/py8570 | | | | | | a1.htm), [...] [facility] | | | | by [employer], | | AIRPORT - | | | | | | [place] | | | | [address] | | | | | | [place], [place] | | | | | | [address] | | | | | | | | | | | | www[employer] | | | | | | [...] + | [facility] | [address] | [place] [address] | | | [place] | | | | + + + [...] [facility] | [address] | [place] [address] | | | SERVICES, CORE | PARK [...] [facility] | [address] | [place] [address] | | | SERVICES, CORE | VILMA [...] [facility] | [address] | [place] [address] | | | SERVICES, CORE [...] [facility] | [address] | [place] [address] | | | SERVICES, CORE | PARK [...] + + + + | PRODUCT | [id number] | | [facility] | | | UNIT [...] + + + + | EXPIRATION | [id number] | | [facility] | | | DATE [...] + + + + | BLOOD | [id number] | | [facility] | | | PRODUCT [...] [facility] | [address] | [place] [address] | | | SERVICES, | [address] [...] [facility] | [address] | [place] [address] | | | SERVICES, CORE | VILMA [...] + | [facility] | [address] | [place] [address] | | | SERVICES, CORE | VILMA [...] | [facility] | [address] | [place] [address] | | | SERVICES, CORE | VILMA [...] | | | LABORATORY | | | [place] | | | SERVICES, | | | [...] | + + + + + | [facility] | [address] | [place] [address] | | | SERVICES, CORE | PARK [...] + | [facility] | [address] | [place] [address] | | | SERVICES, CORE | VILMA [...] [facility] | [address] | [place] [address] | | | SERVICES, CORE | [address] [...] micropuncture access set was exchanged for a Immediatelyson wire. Under | | | fluoroscopic guidance, a 5 Fr flush catheter was used to evaluate the | | | distal abdominal aorta and pelvic vasculature. A wire and catheter | | | were then used to select the left common and internal iliac arteries | | | from the right HAND MOUNTER approach. DSA was performed from the left [...] micropuncture access set was exchanged for a [employer] wire. Under fluoroscopic guidance, | | a 5 Fr flush catheter was used to evaluate the distal abdominal aorta and pelvic | | vasculature. A wire and catheter were then used to select the left common and internal | | iliac arteries from the right HAND MOUNTER approach. DSA was performed from the left [...] micropuncture access set was exchanged for a [employer] wire. Under fluoroscopic guidance, a 5 Fr flush catheter was used | |to evaluate the distal abdominal aorta and pelvic vasculature. A wire and catheter were th en used to select the left common and internal iliac arteries from the right HAND MOUNTER approach. DSA was performed from the left [...] [facility] | [address] | [place], [place] | | | GLORIA GENAO [employer] | [address] | [address] | | | TESTS | | | | + + + + + EXPLORATORY LAPAROTOMY (09/01/2017 12:31 PM PDT) + + + | Narrative | Performed At | + + + | Fidelina Shields MD 09/01/2017 12:42 PM BRIEF OPERATIVE NOTE: | | | Date: 09/01/2017 Author: Fidelina Shields MD | | | Attending Physician: Fidelina Shields MD Valet Parker(s): Haim Peralta | | | , Vicente Garcia MD, [facility] Prior to the | | [...] case. | | | Fidelina Shields MD Manager Biostatistics Division of Trauma, | | | Critical Care and Acute Care Surgery Office: [phone] Pager: | | | [phone] | | + + + ABG-FULL ABL, [...] [facility] | [address] | [place], [place] | | | GLORIA GENAO OF [employer] | [address] | [address] | | | TESTS | | | [...] [facility]ENTER [facility] | [address] | [place] [address] | | | SERVICES, CORE | VILMA [...] + + + | [facility] | [address] | [place], [place] | | | GL[employer]IA GE[employer] | [address] | [address] | | | TESTS | | | [...] + + + + | PRODUCT | [id number] | | [facility] | | | UNIT [...] + + + + | EXPIRATION | [id number] | | [facility] | | | DATE [...] + + + + | BLOOD | [id number] | | [facility] | | | PRODUCT [...] [facility] | [address] | [place] [address] | | | SERVICES, | [address] [...] + + + + | PRODUCT | [id number] | | [facility] | | | UNIT [...] + + + + | EXPIRATION | [id number] | | [facility] | | | DATE [...] + + + + | BLOOD | [id number] | | [facility] | | | PRODUCT [...] [facility] | [address] | [place] [address] | | | SERVICES, | [address] [...] + + + + | PRODUCT | [id number] | | [facility] | | | UNIT [...] + + + + | EXPIRATION | [id number] | | [facility] | | | DATE [...] + + + + | BLOOD | [id number] | | [facility] | | | PRODUCT [...] [facility] | [address] | [place] [address] | | | SERVICES, | [address] [...] + + + + | PRODUCT | [id number] | | [facility] | | | UNIT [...] + + + + | EXPIRATION | [id number] | | [facility] | | | DATE [...] + + + + | BLOOD | [id number] | | [facility] | | | PRODUCT [...] [facility] | [address] | [place] [address] | | | SERVICES, | [address] [...] + + + + | PRODUCT | [id number] | | [facility] | | | UNIT [...] + + + + | EXPIRATION | [id number] | | [facility] | | | DATE [...] + + + + | BLOOD | [id number] | | [facility] | | | PRODUCT [...] LABORATORY | [address] | [place] [address] | | | SERVICES, | [address] [...] + + + + | PRODUCT | [id number] | | [facility] | | | UNIT [...] + + + + | EXPIRATION | [id number] | | [facility] | | | DATE [...] + + + + | BLOOD | [id number] | | [facility] | | | PRODUCT [...] + | [facility] | [address] | [place] [address] | | | SERVICES, | [address] [...] + + + + | PRODUCT | [id number] | | [facility] | | | UNIT [...] + + + + | EXPIRATION | [id number] | | [facility] | | | DATE [...] + + + + | BLOOD | [id number] | | [facility] | | | PRODUCT [...] + + + | [facility] | [address] | [place] [address] | | | SERVICES, | [address] [...] + + + + | PRODUCT | [id number] | | [facility] | | | UNIT [...] + + + + | EXPIRATION | [id number] | | [facility] | | | DATE [...] + + + + | BLOOD | [id number] | | [facility] | | | PRODUCT [...] [facility] | [address] | [place] [address] | | | SERVICES, | [address] [...] + + + + | PRODUCT | [id number] | | [facility] | | | UNIT [...] + + + + | EXPIRATION | [id number] | | [facility] | | | DATE [...] + + + + | BLOOD | [id number] | | [facility] | | | PRODUCT [...] [facility] | [address] | [place] [address] | | | SERVICES, | [address] [...] + + + + | PRODUCT | [id number] | | [facility] | | | UNIT [...] + + + + | EXPIRATION | [id number] | | [facility] | | | DATE [...] + + + + | BLOOD | [id number] | | [facility] | | | PRODUCT [...] [facility] | [address] | [place] [address] | | | SERVICES, | [address] [...] + + + + | PRODUCT | [id number] | | [facility] | | | UNIT [...] + + + + | EXPIRATION | [id number] | | [facility] | | | DATE [...] + + + + | BLOOD | [id number] | | [facility] | | | PRODUCT [...] [facility] | [address] | [place] [address] | | | SERVICES, | [address] [...] + + + + | PRODUCT | [id number] | | [facility] | | | UNIT [...] + + + + | EXPIRATION | [id number] | | [facility] | | | DATE [...] + + + + | BLOOD | [id number] | | [facility] | | | PRODUCT [...] [facility] | [address] | [place] [address] | | | SERVICES, | [address] [...] + + + + | PRODUCT | [id number] | | [facility] | | | UNIT [...] + + + + | EXPIRATION | [id number] | | [facility] | | | DATE [...] + + + + | BLOOD | [id number] | | [facility] | | | PRODUCT [...] [facility] | [address] | [place] [address] | | | SERVICES, | [address] [...] + + + + | PRODUCT | [id number] | | [facility] | | | UNIT [...] + + + + | EXPIRATION | [id number] | | [facility] | | | DATE [...] + + + + | BLOOD | [id number] | | [facility] | | | PRODUCT [...] [facility] | [address] | [place] [address] | | | SERVICES, | [address] [...] + + + + | PRODUCT | [id number] | | [facility] | | | UNIT [...] + + + + | EXPIRATION | [id number] | | [facility] | | | DATE [...] + + + + | BLOOD | [id number] | | [facility] | | | PRODUCT [...] [facility] | [address] | [place] [address] | | | SERVICES, | [address] [...] + + + + | PRODUCT | [id number] | | [facility] | | | UNIT [...] + + + + | EXPIRATION | [id number] | | [facility] | | | DATE [...] + + + + | BLOOD | [id number] | | [facility] | | | PRODUCT [...] [facility] | [address] | [place] [address] | | | SERVICES, | [address] [...] + + + + | PRODUCT | [id number] | | [facility] | | | UNIT [...] + + + + | EXPIRATION | [id number] | | [facility] | | | DATE [...] + + + + | BLOOD | [id number] | | [facility] | | | PRODUCT [...] [facility] | [address] | [place] [address] | | | SERVICES, | [address] [...] + + + + | PRODUCT | [id number] | | [facility] | | | UNIT [...] + + + + | EXPIRATION | [id number] | | [facility] | | | DATE [...] + + + + | BLOOD | [id number] | | [facility] | | | PRODUCT [...] [facility] | [address] | [place] [address] | | | SERVICES, | [address] [...] + + + + | PRODUCT | [id number] | | [facility] | | | UNIT [...] + + + + | EXPIRATION | [id number] | | [facility] | | | DATE [...] + + + + | BLOOD | [id number] | | [facility] | | | PRODUCT [...] | + + + + + | [facility] | [address] | [place] [address] | | | SERVICES, | [address] [...] + + + + | PRODUCT | [id number] | | [facility] | | | UNIT [...] + + + + | EXPIRATION | [id number] | | [facility] | | | DATE [...] + + + + | BLOOD | [id number] | | [facility] | | | PRODUCT [...] [facility] | [address] | [place] [address] | | | SERVICES, | [address] [...] + + + + | PRODUCT | [id number] | | [facility] | | | UNIT [...] + + + + | EXPIRATION | [id number] | | [facility] | | | DATE [...] + + + + | BLOOD | [id number] | | [facility] | | | PRODUCT [...] [facility] | [address] | [place] [address] | | | SERVICES, | [address] [...] + + + + | PRODUCT | [id number] | | [facility] | | | UNIT [...] + + + + | EXPIRATION | [id number] | | [facility] | | | DATE [...] + + + + | BLOOD | [id number] | | [facility] | | | PRODUCT [...] [facility] | [address] | [place] [address] | | | SERVICES, | [address] [...] + + + + | PRODUCT | [id number] | | [facility] | | | UNIT [...] + + + + | EXPIRATION | [id number] | | [facility] | | | DATE [...] + + + + | BLOOD | [id number] | | [facility] | | | PRODUCT [...] [facility] | [address] | [place] [address] | | | SERVICES, | [address] [...] + + + + | PRODUCT | [id number] | | [facility] | | | UNIT [...] + + + + | EXPIRATION | [id number] | | [facility] | | | DATE [...] + + + + | BLOOD | [id number] | | [facility] | | | PRODUCT [...] [facility] | [address] | [place] [address] | | | SERVICES, | [address] [...] + + + + | PRODUCT | [id number] | | [facility] | | | UNIT [...] + + + + | EXPIRATION | [id number] | | [facility] | | | DATE [...] + + + + | BLOOD | [id number] | | [facility] | | | PRODUCT [...] [facility] | [address] | [place] [address] | | | SERVICES, | [address] [...] + + + + | PRODUCT | [id number] | | [facility] | | | UNIT [...] + + + + | EXPIRATION | [id number] | | [facility] | | | DATE [...] + + + + | BLOOD | [id number] | | [facility] | | | PRODUCT [...] [facility] | [address] | [place] [address] | | | SERVICES, | [address] [...] [facility] | [address] | [place] [address] | | | SERVICES, CORE | [address]ARK [...] | | | LABORATORY | | | [facility] | | | SERVICES, | | | [...] [facility] | [address] | [place] [address] | | | SERVICES, NATALEE | [address] [...] + | [facility] | [address] | [place] [address] | | | SERVICES, CORE | [address] [...] [facility] | [address] | [place], [place] | | | GLORIA GENAO OF CARE | [address] | [address] | | | TESTS | | | [...] + + + + | PRODUCT | [id number] | | [facility] | | | UNIT [...] + + + + | EXPIRATION | [id number] | | [facility] | | | DATE [...] + + + + | BLOOD | [id number] | | [facility] | | | PRODUCT [...] [facility] | [address] | [place] [address] | | | SERVICES, | [address] [...] + + + + | PRODUCT | [id number] | | [facility] | | | UNIT [...] + + + + | EXPIRATION | [id number] | | [facility] | | | DATE [...] + + + + | BLOOD | [id number] | | [facility] | | | PRODUCT [...] [facility] | [address] | [place] [address] | | | SERVICES, | [address] [...] + + + + | PRODUCT | [id number] | | [facility] | | | UNIT [...] + + + + | EXPIRATION | [id number] | | [facility] | | | DATE [...] + + + + | BLOOD | [id number] | | [facility] | | | PRODUCT [...] [facility] | [address] | [place] [address] | | | SERVICES, | [address] [...] + + + + | PRODUCT | [id number] | | [facility] | | | UNIT [...] + + + + | EXPIRATION | [id number] | | [facility] | | | DATE [...] + + + + | BLOOD | [id number] | | [facility] | | | PRODUCT [...] [facility] | [address] | [place] [address] | | | SERVICES, | [address] [...] + + + + | PRODUCT | [id number] | | [facility] | | | UNIT [...] + + + + | EXPIRATION | [id number] | | [facility] | | | DATE [...] + + + + | BLOOD | [id number] | | [facility] | | | PRODUCT [...] [facility] | [address] | [place] [address] | | | SERVICES, | [address] [...] + + + + | PRODUCT | [id number] | | [facility] | | | UNIT [...] + + + + | EXPIRATION | [id number] | | [facility] | | | DATE [...] + + + + | BLOOD | [id number] | | [facility] | | | PRODUCT [...] [facility] | [address] | [place] [address] | | | SERVICES, | [address] [...] + + + + | PRODUCT | [id number] | | [facility] | | | UNIT [...] + + + + | EXPIRATION | [id number] | | [facility] | | | DATE [...] + + + + | BLOOD | [id number] | | [facility] | | | PRODUCT [...] [facility] | [address] | [place] [address] | | | SERVICES, | [address] [...] + + + + | PRODUCT | [id number] | | [facility] | | | UNIT [...] + + + + | EXPIRATION | [id number] | | [facility] | | | DATE [...] + + + + | BLOOD | [id number] | | [facility] | | | PRODUCT [...] | + + + + + | [facility] | [address] | [place] [address] | | | SERVICES, | [address] [...] + + + + | PRODUCT | [id number] | | [facility] | | | UNIT [...] + + + + | EXPIRATION | [id number] | | [facility] | | | DATE [...] + + + + | BLOOD | [id number] | | [facility] | | | PRODUCT [...] [facility] | [address] | [place] [address] | | | SERVICES, | [address] [...] [facility] | [address] | [place] [address] | | | NATALEE WORTHINGTON | [address] [...] [facility] | [address] | [place] [address] | | | SERVICES, CORE | [address] [...] Discussed with | | | trauma ICU commercial intern by Dr. Yang at 4:38 AM. [...] interspinous ligament is injured.Discussed with trauma ICU commercial intern | | by Dr. Yang at 4:38 AM.I have personally reviewed the images and, if necessary, | | edited the report. I agree with the report as now presented. | |3. Extensive soft tissue edema extending into the cervical and upper thoracic interspinous space, suggestive of interspinous ligament is injured. | | | |Discussed with trauma ICU commercial intern by Dr. Yang at 4:38 AM. [...] | | | LABORATORY | | | [facility] | | | SERVICES, | | | [...] + + + | [email or web address] | [address] | [place] [address] | | | SERVICES, CORE | [address] [...] LABORATORY | [address] | [place] [address] | | | SERVICES, CORE | PARK [...] [facility] | [address] | [place] [address] | | | SERVICES, CORE | PARK [...] | + + + + + | [facility] | [address] | [place] [address] | | | SERVICES, CORE | [address] [...] pleural spaced was performed. A 32 size Kazakh chest tube was | | | placed [...] | ventricles. Discussed with the trauma ICU commercial intern at 12:12 AM by | | [...] ventricles.Discussed with | | the trauma ICU commercial intern at 12:[address] Yang.I [...] | | |Discussed with the trauma ICU commercial intern at 12:[address] Yang. [...] [facility] | [address] | [place], [place] | | | [place] [facility] | [address] | [address] | | | TESTS | | | [...] | + + + + + | [facility] | [address] | [place] [address] | | | SERVICES, CORE | PARK [...] [facility] | [address] | [place] [address] | | | NATALEE WORTHINGTON | [address] [...] Note | + + | Service Account, [email or web address] Res In Interface - 09/01/2017 1:40 PM [...] + + | Performing | Address | City/State[facility] | Phone Number | | [...] [facility] | [address] | [place] [address] | | | SERVICES, [facility] | [address] | | | + + + + + X-RAY PORTABLE CHEST 1 VIEW (08/31/2017 7:07 PM PDT) + + | Specimen | + + | | + + + + + | Narrative | Performed At | + + + | STUDY: CT CHEST 1 VIEW HISTORY: Trauma COMPARISON: CT CAP | [facility] | | 08/31/2017 FINDINGS: Endotracheal tube [...] | + + + + + | [facility] | [address] | [place] [address] | | | SERVICES, CORE | [address] [...] Note | + + | Service Account, [email or web address] Res In Interface - 08/31/2017 8:22 PM [...] + + | Performing | Address | City/State[facility] | Phone Number | | [...] Note | + + | Service Account, [email or web address] Res In Interface - 09/01/2017 10:12 AM [...] rib, nondisplaced-Left | | 1st rib fracture, bctjocaglepp-Tmu-tukzsmwxe left lateral 8th rib fracture-T12 fracture | [...] + + | Performing | Address | City/[facility] | Phone Number | | Organization [...] [facility] | [address] | [place] [address] | | | SERVICES, | [address] [...] [facility] | [address] | [place] [address] | | | SERVICES, | [address] [...] [facility] | [address] | [place] [address] | | | SERVICES, | [address] [...] + + + + | [facility] | [address] | [place], [place] | | | GLORIA GENAO OF CARE | [address] | [address] | | | TESTS | | | [...] + + + | [facility] | [address] | [place], [place] | | | [place] [facility] | [address] | [address] | | | TESTS | | | [...] [facility] | [address] | [place], [place] | | | GLORIA GENAO [facility] | [facility] | [address] | | | TESTS | | | [...] [facility] | [address] | [place], [place] | | | GLORIA GENAO OF [facility] | [facility] | [address] | | | TESTS | | | [...] + + + + | PRODUCT | [id number] | | [facility] | | | UNIT [...] + + + + | EXPIRATION | [id number] | | [facility] | | | DATE [...] + + + + | BLOOD | [id number] | | [facility] | | | PRODUCT [...] [facility] | [address] | [place] [address] | | | SERVICES, | [address] [...] + + + + | PRODUCT | [id number] | | [facility] | | | UNIT [...] + + + + | EXPIRATION | [id number] | | [facility] | | | DATE [...] + + + + | BLOOD | [id number] | | [facility] | | | PRODUCT [...] LABORATORY | [address] | [place] [address] | | | SERVICES, | [address] [...] + + + + | PRODUCT | [id number] | | [facility] | | | UNIT [...] + + + + | EXPIRATION | [id number] | | [facility] | | | DATE [...] + + + + | BLOOD | [id number] | | [facility] | | | PRODUCT [...] + | [facility] | [address] | [place] [address] | | | SERVICES, | [address] [...] + + + + | PRODUCT | [id number] | | [facility] | | | UNIT [...] + + + + | EXPIRATION | [id number] | | [facility] | | | DATE [...] + + + + | BLOOD | [id number] | | [facility] | | | PRODUCT [...] [facility] | [address] | [place] [address] | | | SERVICES, | [address] [...] + + + + | PRODUCT | [id number] | | [facility] | | | UNIT [...] + + + + | EXPIRATION | [id number] | | [facility] | | | DATE [...] + + + + | BLOOD | [id number] | | [facility] | | | PRODUCT [...] [facility] | [address] | [place] [address] | | | SERVICES, | [address] [...] + + + + | PRODUCT | [id number] | | [facility] | | | UNIT [...] + + + + | EXPIRATION | [id number] | | [facility] | | | DATE [...] + + + + | BLOOD | [id number] | | [facility] | | | PRODUCT [...] | + + + + + | [facility] | [address] | [place] [address] | | | SERVICES, | [address] [...] + + + + | PRODUCT | [id number] | | [facility] | | | UNIT [...] + + + + | EXPIRATION | [id number] | | [facility] | | | DATE [...] + + + + | BLOOD | [id number] | | [facility] | | | PRODUCT [...] | + + + + + | [facility] | [address] | [place] [address] | | | SERVICES, | [address] [...] + + + + | PRODUCT | [id number] | | [facility] | | | UNIT [...] + + + + | EXPIRATION | [id number] | | [facility] | | | DATE [...] + + + + | BLOOD | [id number] | | [facility] | | | PRODUCT [...] [facility] | [address] | [place] [address] | | | SERVICES, | [address] [...] [facility] | [address] | [place] [address] | | | SERVICES, CORE [...] | | | LABORATORY | | | [facility] | | | SERVICES, | | | [...] [facility] | [address] | [place] [address] | | | SERVICES, CORE | [address] [...] [facility] | [address] | [place] [address] | | | NATALEE WORTHINGTON | [address] [...] [facility] | [address] | [place] [address] | | | SERVICES, CORE | PARK [...] | + + + + + | [facility] | [address] | [place] [address] | | | SERVICES, CORE | [address] [...] [facility] | [address] | [place] [address] | | | SERVICES, CORE | [address] [...]
--- OUTSIDE RECORDS SUMMARY | ~2019-04-04 | XMS | Encounter Summary ---
Demographics + + + | Address | [address] | | | [place] [address] | + + + | Home Phone [...] Author | [facility] | + + + | Organization | [facility] | + + + | Address | Unknown | + + + | Phone | Unavailable | + + + Support + + +---------+ + | Name | Relationship | Address | Phone | + + +---------+ + | Kaylie Baig | ECON | Unknown | | + + +---------+ + Care Team Providers + +------+ + | Care Occupational Therapy Professor Name | Role | Phone | [...] | | | | | floor [address] [facility] | | | | | | [address] | | | | | | [place], [place] | | | | | | [address] | | | +--------+ + + + [...]
--- OUTSIDE RECORDS SUMMARY | ~2019-04-04 | XMS | Encounter Summary ---
Demographics + + + | Address | [address] | | | [place] [address] | + + + | Home Phone [...] + | Author | [facility] | + + + | Organization | [facility] | [...] Team Providers + +------+ + | Care Bail Attacher Name | Role | Phone | + [...] | | | | | floor [address] [facility] | | | | | | [address] | | | | | | [place], [place] | | | | | | [address] | | | +--------+ + + + [...]
--- OUTSIDE RECORDS SUMMARY | ~2019-04-04 | XMS | Encounter Summary ---
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 the patient. I reviewed the history, as documented today. I agree with the ASHLEY assessment and plan. TBI has remained stable. On lovenox. Will continue haldol per psych.. EM CUNNINGHAM MD [facility] [address] [place] [address] Venita Pruitt PA-C - 10/05/2017 8:38 AM [...] p atient unable to come out fo FIELD MECHANIC for now Resolved or chronic issues/Plan: #Previous [...] issues, including restraints. Venita Pruitt PA-C [place] [phone] [place] [phone] [facility] [address] [place] [address] Associated attestation - Shlomo Rosenthal MD - 10/06/2017 7:28 AM PDTFormatting of this note m ight be different from the original. I saw and examined Berlin Temple ([id number]) with the TRAUMA team on 10/05/2017. I [...] and incen tive spirometry for pulmonary toliet. seafood and service meat manager for disposition planning and placement. Shlomo Rosenthal MD Trade Economist Division of Trauma and Critical Care [place] [...] (baseline from previous TBI ) Neck: in [place] collar Respiratory: CTA b.l CV: RRR GI: [...] p atient unable to come out fo FIELD MECHANIC for now Resolved or chronic issues/Plan: #Previous [...] issues, including restraints. Venita Pruitt PA-C [place] [phone] [facility] [place] [phone] [place] [facility] [place] [address] Associated attestation - Fidelina Shields [...] and only enteral access. Fidelina Shields MD Toll Bridge Attendant Division of Trauma, Critical Care and Acute Care Surgery Office: [phone] Pager: [phone] Leonor Torres [facility] - 10/03/2017 3:13 PM PDT Trauma [...] (baseline from previous TBI ) Neck: in [place] collar Respiratory: CTA bilaterally, no distress CV: [...] p atient unable to come out fo FIELD MECHANIC for now Resolved or chronic issues/Plan: Previous [...] by patient, but wound remains duke n/dry/intact. Newburg removed 09/17. #Left hemothorax Chest tube placed [...] PDTAttending: I saw and examined Berlin Temple ([id number]) with CB Hair on morning rounds 10/03 and agree with the assessment and plan as outlined in this note and participated in the planning of care. Mental status is slightly better, remains sedated but he is interactive and at least somewh at oriented. Enteral nutrition advancing and, as approaches goal, will turn TPN off. Place ment remains a significant issue. Fidelina Shields MD Toll Bridge Attendant Division of Trauma, Critical Care and Acute Care Surgery Office: [phone] Pager: [phone] July Banegas PA-C - 10/03/2017 12:58 PM [...] the C-collar when in bed then the FIELD MECHANIC when out of bed until 12/01/17. JULY BANEGAS PA-C [facility] [address] [place] [address] Associated attestation - Magdiel Stock MD - 10/04/2017 6:02 PM PDTI performed a history a nd physical examination of the patient and discussed the management with the advanced practi ce provider, July Banegas PA-C. I reviewed the advanced practice provider's note and agree w ith the plan of care as documented. Continue cervical collar and FIELD MECHANIC for 3 months to ensure fracture healing and prevent development of post-fracture cervical kyphosis. Magdiel Stock MD Toll Bridge Attendant Department of Neurological Surgery [facility] [place] Sherine Sarmiento, AGACNP - 10/02/2017 12:54 PM [...] (baseline from previous TBI ) Neck: in [place] collar Respiratory: CTA bilaterally, lungs symmetrical, equal chest wall rise, no retractions CV: RRR GI: non tender, soft, active BS, last BM 09/30 : Patient voiding without difficulty Extremities: no peripheral edema, wiggles toes and toes pink and well perfused Musculoskeletal: 5/5 reducing salon attendant strength on right, 3/5 reducing salon attendant strength on left FEN: on TPN, transitioning [...] AMS & delirium - numerous evaluations by GAS COMBUSTION ENGINEER with trials of PO - now s/p [...] . - C-collar at all times, use FIELD MECHANIC when OOB - Follow-up with Neurosurgery on [...] will decrease scheduled [place]. [place]g [phone] Associated attestation - Fidelina Shields MD - 10/02/2017 4:40 PM PDTAttending: I saw and examined Berlin Temple ([id number]) with KESHAWN Alexander on mornin g rounds [...] place prior to DC Fidelina Shields MD Toll Bridge Attendant Division of Trauma, Critical Care and Acute Care Surgery Office: [phone] Pager: [phone] Sherine Sarmiento AGACNP - 10/01/2017 7:27 AM PDTFormatting of this note might be d ifferent from the original. Trauma Acute Care - Progress Note Name: BRELIN TEMPLE HPI: Berlin Temple is a67 y.o. [...] (baseline from previous TBI ) Neck: in [place] collar Respiratory: CTA bilaterally, lungs symmetrical, equal chest wall rise, no retractions CV: RRR GI: non tender, soft, active BS, last BM 09/30 : Patient voiding without difficulty Extremities: no peripheral edema, wiggles toes and toes pink and well perfused Musculoskeletal: 5/ reducing salon attendant strength on right, 3/5 reducing salon attendant strength on left FEN: on TPN Heme/ID: [...] AMS & delirium - numerous evaluations by GAS COMBUSTION ENGINEER with trials of PO - now s/p modified barium swallow x2 which indicates aspiration - continue NPO - GAS COMBUSTION ENGINEER reports that patient working on tongue strength [...] . - C-collar at all times, use FIELD MECHANIC when OOB - Follow-up with Neurosurgery on [...] with trauma team and sister. Sherine Sarmiento, [facility] [place]g [phone] Associated attestation - Fidelina Shields MD - 10/02/2017 4:40 PM PDTAttending: I saw and examined Berlin Temple ([id number]) with KESHAWN Alexander on mornin g rounds 10/01/17 and agree with the assessment and plan as outlined in this note and partic ipated in the planning of care. Will trial DHT placement today, CT head unchanged. Suspect somnolence is medication side ef fect and, if persistent, may need to wean antipsychotic doses. Fidelina Shields MD Toll Bridge Attendant Division of Trauma, Critical Care and Acute Care Surgery Office: [phone] Pager: [phone] Christian Kelley PA-C - 09/30/2017 12:21 PM [...] Fixed and dilated on left Neck: in [place] collar Respiratory: CTA bilaterally, lungs symmetrical, equal chest wall rise, no retractions CV: RRR GI: non tender, soft, active BS, last BM 09/30 : Patient voiding without difficulty Extremities: no peripheral edema, wiggles toes and toes pink and well perfused Musculoskeletal: 5/5 reducing salon attendant strength on right, 3/5 reducing salon attendant strength on left FEN: on TPN Heme/ID: [...] AMS & delirium - numerous evaluations by GAS COMBUSTION ENGINEER with trials of PO - now s/p modified barium swallow x2 which indicates aspiration - continue NPO - GAS COMBUSTION ENGINEER reports that patient working on tongue strength [...] . - C-collar at all times, use FIELD MECHANIC when OOB - Follow-up with Neurosurgery on 10/21 with repeat X-rays #Blunt abdominal trauma #Splenic laceration S/p laparotomies x2. Fascia closed 09/02 Wound vac removed by patient, but wound remains duke n/dry/intact. Newburg removed 09/17. #Left hemothorax Chest tube placed [...] PDTAttending: I saw and examined Berlin Temple ([id number]) with Christian Kelley PA-C on morning rounds 09/30 and agree with the assessment and plan as outlined in this note and participated in the planning of care. Mentally slower this morning, but non-focal. Received haldol overnight for sleep. Repeat head CT was unchanged so suspect etiology of slowed responsiveness is the antipsychotic dose . GAS COMBUSTION ENGINEER believes that, once collar off, may be able to take PO more effectively and thus will hold off on surgical feeding access. TPN is a temporary solution and if patient remains kaye nable will trial DHT tomorrow. Working with psychiatry for medication recommendations. Fidelina Shields MD Toll Bridge Attendant Division of Trauma, Critical Care and Acute Care Surgery Office: [phone] Pager: [phone] July Banegas PA-C - 09/30/2017 8:23 AM PDTBrief Neurosurgery Wound Check: Wound is dry, without erythema, not fluctuant. No acute swelling. Nylon in place. Will plan to follow peripherally for wound checks and remove nylons on 10/09. JULY BANEGAS PA-C [facility] [address] [place] [address] Christian Begum PA-C - 09/29/2017 7:15 AM [...] and EOMs intact to exam Neck: in [place] collar Respiratory: CTA bilaterally, lungs symmetrical, equal [...] AMS & delirium - numerous evaluations by GAS COMBUSTION ENGINEER with trials of PO - now s/p [...] . - C-collar at all times, use FIELD MECHANIC when OOB - Follow-up with Neurosurgery on [...] PDTAttending: I saw and examined Berlin Temple ([id number]) with Christian Kelley PA-C on morning rounds 09/29 and agree with the assessment and plan as outlined in this note and participated in the planning of care. Late entry for 09/29/17. Persistent alterations in conscious and dysphagia. Hopefully with ongoing speech therapy a nd when clear to take c-collar off, will improve ability to take PO. While TPN is not an opt imal local intermodal truck driver strategy, would prefer not to place surgical feeding tube if possible given r elatively recent damage control laparotomy and high risk of Mr. Temple pulling it out. Have tried DHT several times and it seems to worsen delirium and he pulls it out frequently. Tit ration of haldol in conjunction with psychiatry. Fidelina Shields MD Toll Bridge Attendant Division of Trauma, Critical Care and Acute Care Surgery Office: [phone] Pager: [phone] Christian Kelley PA-C - 09/28/2017 1:01 PM [...] he said, who, ariel? And then the CREDENTIALER helped him make a call to her. [...] and EOMs intact to exam Neck: in [place] collar Respiratory: CTA bilaterally, lungs symmetrical, equal [...] very agitated today. - EKG today with [place] QTc calculated to be 428 - optimize [...] AMS & delirium - numerous evaluations by GAS COMBUSTION ENGINEER with trials of PO - now s/p [...] . - C-collar at all times, use FIELD MECHANIC when OOB - Follow-up with Neurosurgery on [...] more toda y. Chaz Munoz MD, FACS Toll Bridge Attendant, Trauma, Critical Care and Acute Care Surgery Chaz Munoz MD - 09/28/2017 10:13 AM PDTTrauma Staff Seen and examined this AM with team. I have concerns abotu behaviour, as he is consistently threatening RN and ancillary staff, even attempting swings. Behavior seems worse at night. I would favor increasing night time Haldol dose, and following EKGs. Chaz Munoz MD, FACS Toll Bridge Attendant, Trauma, Critical Care and Acute Care Surgery [...] Dallin Bourgeois MD Neurosurgery PGY1 | Pager #[phone] Christian Begum PA-C - 09/27/2017 7:31 AM [...] able to have a linear conversation briefly GAS COMBUSTION ENGINEER requesting repeat barium swallow Current meds: I [...] incision healing , suture c/d/I Neck: in FIELD MECHANIC Respiratory: unlabored on room air, lungs symmetrical, [...] AMS & delirium - numerous evaluations by GAS COMBUSTION ENGINEER with trials of PO - now s/p [...] . - C-collar at all times, use FIELD MECHANIC when OOB - Follow-up with Neurosurgery on 10/21 with repeat X-rays #Blunt abdominal trauma #Splenic laceration S/p laparotomies x2. Fascia closed 09/02 Wound vac removed by patient, but wound remains duke n/dry/intact. Newburg removed 09/17. #Left hemothorax Chest tube placed [...] for now. EM CUNNINGHAM MD [facility] [address] [place] [address] Christian Kelley PA-C - 09/26/2017 6:48 AM [...] posterior scalp crani incision c/d/I Neck: in [place] collar Respiratory: unlabored on room air CV: [...] AMS & delirium - numerous evaluations by GAS COMBUSTION ENGINEER with trials of PO - now s/p [...] . - C-collar at all times, use FIELD MECHANIC when OOB - Follow-up with Neurosurgery on 10/21 with repeat X-rays #Blunt abdominal trauma #Splenic laceration S/p laparotomies x2. Fascia closed 09/02 Wound vac removed by patient, but wound remains duke n/dry/intact. Newburg removed 09/17. #Left hemothorax Chest tube placed [...] and TPN. EM CUNNINGHAM MD [facility] [address] [place] [address] Christian Kelley PA-C - 09/25/2017 7:49 AM [...] HEENT: EOMs intact to exam Neck: in FIELD MECHANIC brace Respiratory: unlabored on room air CV: [...] AMS & delirium - numerous evaluations by GAS COMBUSTION ENGINEER with trials of PO - now s/p [...] . - C-collar at all times, use FIELD MECHANIC when OOB - Follow-up with Neurosurgery on [...] Continue TPN. EM CUNNINGHAM MD [facility] [address] [place] [address] Christian Kelley PA-C - 09/24/2017 11:07 AM [...] with agitation Having difficulty swallowing again - GAS COMBUSTION ENGINEER to re-eval and obtain barium swallow Current [...] HEENT: EOMs intact to exam Neck: in FIELD MECHANIC brace Respiratory: CTA bilaterally, lungs symmetrical, equal chest wall rise, no retractions CV: RRR GI: non distended, last BM 09/23 : good urine output Extremities: SCD's in place, no peripheral edema, wiggles toes and toes pink and well perfu sed Musculoskeletal: 5/5 strength in bilateral reducing salon attendant (but with slightly weaker on left) , [...] likely 2/2 AMS & delirium - Failed GAS COMBUSTION ENGINEER eval 09/19 & 09/20, made NPO & dobhoff reinserted 09/21 but pulled overnight - Per GAS COMBUSTION ENGINEER on 09/21, ok for therapeutic pureed with [...] . - C-collar at all times, use FIELD MECHANIC when OOB - Follow-up with Neurosurgery on 10/21 with repeat X-rays #Blunt abdominal trauma #Splenic laceration S/p laparotomies x2. Fascia closed 09/02 Wound vac removed by patient, but wound remains duke n/dry/intact. Newburg removed 09/17. #Left hemothorax Chest tube placed [...] for dehiscence. EM CUNNINGHAM MD [facility] [address] [place] [address] Ginette Campos PA-C - 09/24/2017 9:31 AM [...] 4 extremities Unable to assess drift. Motor: Sweatband Separator Bicep Tricep Delt R 5 5 5 [...] or concerns. Ginette Campos PA-C [facility] [address] [place] [phone] ELLGabriel Atkins AGACNP - 09/23/2017 6:32 AM [...] hiscence, draining minimal serosang fluid Neck: in FIELD MECHANIC brace Respiratory: unlabored on room air CV: [...] PRN seroquel dose QHS for insomnia/restlessness at [facility] [place] - Repeat ECG 09/22 with QTc WNL. [...] likely 2/2 AMS & delirium - Failed GAS COMBUSTION ENGINEER eval 09/19 & 09/20, made NPO & dobhoff reinserted 09/21 but pulled overnight - Per GAS COMBUSTION ENGINEER on 09/21, ok for therapeutic pureed with [...] . - C-collar at all times, use FIELD MECHANIC when OOB - Follow-up with Neurosurgery on [...] dysphagia & delir ium improves Sherine Sarmiento, [facility] [place] [phone] Dallin Deshpande MD - 09/22/2017 8:03 AM [...] Dallin Bourgeois MD Neurosurgery PGY1 | Pager #[phone] [facility] est[facility], AGACN - 09/22/2017 6:52 AM PDTFormatting [...] 24hr events: - Therapeutic purees initiated by GAS COMBUSTION ENGINEER yesterday - Trickle feeds via Dobbhoff, pt pulled Dobbhoff yesterday evening- not replaced - SCIENCE ANALYST called around 2130 for new left [...] sluggish. Slight left facial droop Neck: in [place] collar Respiratory: unlabored on room air CV: [...] PRN seroquel dose QHS for insomnia/restlessness at [facility] [place]- - Repeat ECG 09/22 with Q Tc WNL. - Haldol 5mg q12hr prn for severe agitation #Substance abuse, concern for Alcohol withdrawal - CIWA discontinued 09/08, not scoring. - Thiamine & folate started 09/21 #Dysphagia, risk for aspiration #Protein calorie malnutirtion - likely 2/2 AMS & delirium - Failed GAS COMBUSTION ENGINEER eval 09/19 & 09/20, made NPO & dobhoff reinserted 09/21 but pulled overnight - Per GAS COMBUSTION ENGINEER on 09/21, ok for therapeutic pureed with [...] . - C-collar at all times, use FIELD MECHANIC when OOB - Follow-up with Neurosurgery on 10/21 with repeat X-rays #Blunt abdominal trauma #Splenic laceration S/p laparotomies x2. Fascia closed 09/02 Wound vac removed by patient, but wound remains duke n/dry/intact. Newburg removed 09/17. #Left hemothorax Chest tube placed [...] when dysphagia & delirium improves Sherine Sarmiento, [facility] Pg [phone] Associated attestation - Shiva Nieto MD,MPH - [...] Care & Acute Care Surgery [facility] [phone] Sami Black - 09/21/2017 10:25 PM PDTBrief [...] in the morning. Plan: -neuro checks; page [phone] for any decline in neurological examination -pain control -Hard C collar at all times and place FIELD MECHANIC prior to mobilizing OOB. Anticipated duration of Collar/FIELD MECHANIC is 12 weeks -repeat CT head for any new decline in neurological exam and page [phone] -NPO at midnight tonight -please hold tonight's planned dose of Lovenox -further recommendations in the morning Sami Black MD, PhD PGY-3 Resident Neurosurgery [id number] signed by Sami Black at 09/21/2017 10:50 PM PDTCleSherine estrella [facility] - 09/21/2017 7:10 AM PDTFormatting [...] Provena placem ent 24hr events: - Failed GAS COMBUSTION ENGINEER eval again yest morning, continued NPO - [...] reactive. Dobbhoff tube in place Neck: in [place] collar Respiratory: unlabored on room air CV: [...] likely 2/2 AMS & delirium - Failed GAS COMBUSTION ENGINEER eval 09/19 & 09/20, made NPO & dobhoff reinserted yesterday - Trickle feeds started this am at 20ml/hr, increase very slowly by 10ml every 12 hrs to go al of 75 due to hx of mesenteric hematomas and previous inability to tolerate TF - Per GAS COMBUSTION ENGINEER today, ok for therapeutic pureed with nectar [...] . - C-collar at all times, use FIELD MECHANIC when OOB - Follow-up with Neurosurgery on [...] & delirium [place]g [phone] Associated attestation - Fidelina Shields MD - 09/21/2017 9:36 PM PDTAttending: I saw and examined Berlin Temple ([id number]) with KESHAWN Alexander on mornin g rounds [...] enough to re-trial PO. Fidelina Shields MD Toll Bridge Attendant Division of Trauma, Critical Care and Acute Care Surgery Office: [phone] Pager: [phone] Sherine Sarmietno AGACNP - 09/20/2017 7:41 AM PDTFormatting of [...] haldol given yesterday afternoon for agitation - GAS COMBUSTION ENGINEER paged to re-eval in afternoon after concern for aspiration, made NPO by GAS COMBUSTION ENGINEER - DARNELL SOLANO Current meds: I have [...] right pupil 3 and reactive Neck: in [place] collar Respiratory: unlabored on room air CV: [...] thick/pureed d iet. Made NPO yesterday by GAS COMBUSTION ENGINEER after concern for aspiration. This is likely 2/2 waxing & wan ing delirium & AMS - GAS COMBUSTION ENGINEER re-eval today recommend continue NPO d/t overt clinical signs of aspiration - Place Dobbhoff tube and restart feeds, slowly progress to goal - Stop TPN when tolerating tube feeds - GAS COMBUSTION ENGINEER will follow closely, as his AMS improves [...] . - C-collar at all times, use FIELD MECHANIC when OOB - Follow-up with Neurosurgery on 10/21 with repeat X-rays #Blunt abdominal trauma #Splenic laceration S/p laparotomies x2. Fascia closed 09/02 Wound vac removed by patient, but wound remains duke n/dry/intact. Newburg removed 09/17. #Left hemothorax Chest tube placed [...] dysphagia & delirium i mproves Sherine Sarmiento, [facility] Pg [phone] Associated attestation - Fidelina Shields MD - 09/20/2017 9:34 PM PDTAttending: I saw and examined Berlin Temple ([id number]) with KESHAWN Alexander on mornin g rounds [...] dispo planning when able. Fidelina Shields MD Toll Bridge Attendant Division of Trauma, Critical Care and Acute Care Surgery Office: [phone] Pager: [phone] Mary Medrano MD,MPH - 09/19/2017 6:22 AM [...] downgraded from thin to thick liquids by GAS COMBUSTION ENGINEER Current meds: I have independently reviewed current [...] intact, small Right fluctuant pseudomeningocele Neck: in [place]ailles collar Respiratory: unlabored on room air CV: [...] DHT on09/19. - Cleared for diet by GAS COMBUSTION ENGINEER, tolerating purees, 749 Calories yesterday - Restart Calorie count: if taking >700 again will be OK for full po diet, otherwise replac e DHT and restart TF - Stop TPN tomorrow regardless - Still considering repeat CT abdomen/pelvis #Dysphagia DHTreplaced overnight 09/07. TF held due to emesis and possible ileus, aspiration risk. DH T pulled overnight on 09/18 - GAS COMBUSTION ENGINEER as able Resolved or chronic issues/Plan: #BIG 3 TBI #Right synthetic cranioplasty Neurosurgery consulted. Non-operative management. Last head CT 09/12 stable. Expected pseudo meningocele. Left-sided deficits consistent with baseline. - Stat head CT for any neurologic decline #C7 bilateral lamina fractures #C6-T2 spinous process fractures Neurosurgery consulted. Non-operative management. Upright cervical X-rays completed on 09/14 . - C-collar at all times, use FIELD MECHANIC when OOB - Follow-up with Neurosurgery on 10/21 with repeat X-rays #Blunt abdominal trauma #Splenic laceration S/p laparotomies x2. Fascia closed 09/02 Wound vac removed by patient, but wound remains duke n/dry/intact. Newburg removed 09/17. #Left hemothorax Chest tube placed [...] M.D., M.P.H. Neurological Surgery Resident PGY-1 Pager: [phone] Associated attestation - Fidelina Shields MD - 09/19/2017 1:36 PM PDTAttending: I saw and examined Berlin Temple ([id number]) with the residents on morning rounds 09/19/17 and agree with the assessment and plan as outlined in this note and participated in the plan aashish of care. Improving po intake, will titrate TPN. Plan to DC TPN tomorrow and transition to PO vs PO + TF depending on calorie counts. Once of restraints will begin looking for placement. Fidelina Shields MD Toll Bridge Attendant Division of Trauma, Critical Care and Acute Care Surgery Office: [phone] Pager: [phone] Mary Medrano MD,MPH - 09/18/2017 6:17 AM [...] fascial closure, Provena placem ent 24hr events: Newburg removed yesterday Small emesis overnight, nausea resolved [...] fluctuant pseudomeningocele,Dobhoff tubein p lace Neck: in [place] collar Respiratory: unlabored on room air CV: [...] holding TF - Cleared for diet by GAS COMBUSTION ENGINEER, tolerating small quantities of purees - Will need repeat CT A/P within 1-2 days #Hypervolemia I&O approaching even. Appears to have been auto-diuresing. - Continue to monitor urine output - Monitor electrolytes, replete prn #Dysphagia DHTreplaced overnight 09/07. TF held due to emesis and possible ileus, aspiration risk. - GAS COMBUSTION ENGINEER as able #C7 bilateral lamina fractures #C6-T2 spinous process fractures Neurosurgery consulted. Non-operative management. Upright cervical X-rays completed on 09/14 . - C-collar at all times, use FIELD MECHANIC when OOB - Follow-up with Neurosurgery on [...] M.D., M.P.H. Neurological Surgery Resident PGY-1 Pager: [phone] signed by Fidelina Shields MD at 09/19/2017 3:58 PM PDT Associated attestation - Fidelina Shields MD - 09/19/2017 3:58 PM PDTAttending: I saw and examined Berlin Temple ([id number]) with the residents on morning rounds 09/18/17 and agree with the assessment and plan as outlined in this note and participated in the plan aashish of care. Fidelina Shields MD Toll Bridge Attendant Division of Trauma, Critical Care and Acute Care Surgery Office: [phone] Pager: [phone] Mary Medrano MD,MPH - 09/17/2017 6:26 AM [...] fluctuant pseudomeningocele,Dobhoff tubein p lace Neck: in [place]ailles collar Respiratory: unlabored on room air CV: [...] holding TF - Cleared for diet by GAS COMBUSTION ENGINEER, tolerating small quantities of purees #Hypervolemia I&O approaching even. Appears to have been auto-diuresing. - Continue to monitor urine output - Monitor electrolytes, replete prn #Dysphagia DHTreplaced overnight 09/07. TF held due to emesis and possible ileus, aspiration risk. - GAS COMBUSTION ENGINEER as able #C7 bilateral lamina fractures #C6-T2 spinous process fractures Neurosurgery consulted. Non-operative management. Upright cervical X-rays completed on 09/14 . - C-collar at all times, use FIELD MECHANIC when OOB - Follow-up with Neurosurgery on [...] by patient, but wound remains duke n/dry/intact. Newburg removed 09/17. #Left hemothorax Chest tube placed [...] M.D., M.P.H. Neurological Surgery Resident PGY-1 Pager: [phone] signed by Fidelina Shields MD at 09/17/2017 2:29 PM PDT Associated attestation - Fidelina Shields MD - 09/17/2017 2:29 PM PDTAttending: I saw and examined Berlin Temple ([id number]) with the residents on morning rounds 09/17/17 [...] repeat C T abdomen/pelvis. Fidelina Shields MD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 | [...] Note | + + | Service Account, OnAir Player In Interface - 11/12/2017 1:46 PM PDT [...] [facility] | [address] | [place], [place] | | | CARDIOLOGY | [address] | [address] | | + + + + + [...] | + + + + + | [facility] | [address] | [place] [address] | | | SERVICES, CORE | VILMA [...] + | [facility] - | [address] | [place] [address] | | | [place] | | | [...] DEPT OF | [address] | [place], [place] | | | CARDIOLOGY | [address] | [address] | | + + + + + [...] [facility] | [address] | [place] [address] | | | NATALEE WORTHINGTON | VILMA [...] + | [facility] - | [address] | [place] [address] | | | [facility] | | | | + + [...] [facility] | [address] | [place] [address] | | | SERVICES, CORE | PARK [...] [facility] | [address] | [place] [address] | | | ELIN, NATALEE | VILMA [...] [facility] | [address] | [place] [address] | | | SERVICES, CORE | PARK [...] | | | LABORATORY | | | ARMENIAN | | | SERVICES, | | | [...] + + + + | [facility] | [address] | [place] [address] | | | SERVICES, CORE | PARK [...] 1.6 - 2.6 mg/dL | [facility] | | | LASMA | | [...] [facility] | [address] | [place] [address] | | | SERVICES, NATALEE | VILMA [...] + + + + | [facility] | [address] | [place] [address] | | | SERVICES, CORE | PARK [...] | | | LABORATORY | | | ARMENIAN | | | SERVICES, | | | [...] + + + + | [facility] | [address] | [place] [address] | | | SERVICES, CORE | PARK [...] [facility] | [address] | [place], [place] | | | CARDIOLOGY | [address] | [address] | | + + + + + [...] + + + + | [facility] | [address] | [place] [address] | | | SERVICES, CORE | VILMA [...] | | | LABORATORY | | | ARMENIAN | | | SERVICES, | | | [...] | + + + + + | [facility] | [address] [facility] | [place] [address] | | | SERVICES, CORE | VILMA [...] [facility] | [address] | [place] [address] | | | SERVICES, CORE | PARK [...] | | | LABORATORY | | | ARMENIAN | | | SERVICES, | | | [...] equation recommended by the | [facility] | | National Kidney Disease Education [...] + + + + | [facility] | [address] [facility] | [place] [address] | | | SERVICES, CORE | VILMA [...] Note | + + | Service Account, OnAir Player In Interface - 11/08/2017 2:31 PM PDT [...] [facility] | [address] | [place] [address] | | | SERVICES, CORE | PARK [...] | | | LABORATORY | | | ARMENIAN | | | SERVICES, | | | [...] | + + + + + | [facility] | [address] | [place] [address] | | | NATALEE WORTHINGTON | VILMA [...] DEPT OF | [address] | [place], [place] | | | CARDIOLOGY | [address] | [address] | | + + + + + [...] DEPT OF | [address] | [place], [place] | | | CARDIOLOGY | [address] | [address] | | + + + + + [...] | | | LABORATORY | | | ARMENIAN | | | SERVICES, | | | [...] | + + + + + | [facility] | [address] | [place] [address] | | | SERVICES, CORE | VILMA [...] | + + + + + | [facility] | [address] | [place] [address] | | | SERVICES, CORE | VILMA [...] + + + + | PRODUCT | [id number] | | [facility] | | | UNIT [...] + + + + | EXPIRATION | [id number] | | [facility] | | | DATE [...] + + + + | BLOOD | [id number] | | [facility] | | | PRODUCT [...] | + + + + + | [facility] | [address] | [place] [address] | | | SERVICES, | [address] [...] + + + + | PRODUCT | [id number] | | [facility] | | | UNIT [...] + + + + | EXPIRATION | [id number] | | [facility] | | | DATE [...] + + + + | BLOOD | [id number] | | [facility] | | | PRODUCT [...] | + + + + + | [facility] | [address] | [place] [address] | | | SERVICES, | [address] [...] [facility] | [address] | [place] [address] | | | NATALEE WORTHINGTON | VILMA [...] + + + + | [facility] | [address] | [place] [address] | | | SERVICES, NATALEE | VILMA [...] | | | LABORATORY | | | ARMENIAN | | | SERVICES, | | | [...] | + + + + + | [facility] | [address] | [place] [address] | | | SERVICES, CORE | [address] | | | + + + + + OPERATION RECORD (11/06/2017 12:27 AM PDT) + + | Procedure Note | + + | Magdiel Stock MD - 11/06/2017 12:27 AM PDT Date of Service: 11/05/2017 Attending | | Surgeon: Magdiel Stock MD Principal Systems Architect(s): Rg Aiken MD | | Preoperative Diagnoses: [...] head was placed in a horseshoe head cager with his C-collar still | | attached [...] the incision down to the cranium. Once [place] | | skull was reached circumferentially around the prior incision, a #1 [place] was used | | to subperiosteally dissect [...] for this encounter.Sonal Nunez, | | [facility] [id number] [place], [place] | | [id number] Orina, MDJB/MODLDD: 11/05/2017 20:38:01DT: 11/06/2017 | | 00:27:33Job #: [id number] | |HATTIE/TAHIRL | | | | | | /[id number] | + + CT HEAD WO CONTRAST [...] Note | + + | Service Account, Radi[employer] Start Project Res In Interface - 11/05/2017 8:20 PM [...] Surgeon: Magdiel | | | MD Dayami Principal Systems Architect: Rg Aiken MD Pre-op Diagnosis: | | [...] PGY-4 Neurological Surgery Pager | | | [phone] | | + + + CAPILLARY BLOOD [...] [facility] | [address] | [place], [place] | | | [facility] OF CARE | [facility] | [address] | | | TESTS | | | [...] [facility] | [address] | [place], [place] | | | GLORIA GENAO OF CARE | [address] | [address] | | | TESTS | | | | + + + + + [facility] VENOUS DUPLEX LOWER EXTREMITY [...] Note | + + | Service Account, OnAir Player In Interface - 11/05/2017 11:31 AM PDT [...] [facility] | [address] | [place] [address] | | | SERVICES, NATALEE | VILMA [...] | + + + + + | [facility] | [address] [facility] | [place] [address] | | | SERVICES, CORE | [address] [...] | | | LABORATORY | | | ARMENIAN | | | SERVICES, | | | [...] equation recommended by the | [facility] | | National Kidney Disease Education [...] [facility] | [address] | [place] [address] | | | SERVICES, CORE [...] valves (2.5 - 3.5) INR APTT | [facility], CORE | | Therapeutic Range: (75 - 120) sec | | | Heparin levels of 0.35 - 0.7 U/mL | | + + + + + + + + | Performing | Address | City/State/Zipcode | Phone Number | | Organization | | | | + + + + + | [facility] | [address] | [place] [address] | | | ELIN, NATALEE | PARK [...] + + + + | PRODUCT | [id number] | | [facility] | | | UNIT [...] + + + + | EXPIRATION | [id number] | | [facility] | | | DATE [...] + + + + | BLOOD | [id number] | | [facility] | | | PRODUCT [...] | + + + + + | [facility] | [address] | [place] [address] | | | SERVICES, | [address] [...] + + + + | PRODUCT | [id number] | | [facility] | | | UNIT [...] + + + + | EXPIRATION | [id number] | | [facility] | | | DATE [...] + + + + | BLOOD | [id number] | | [facility] | | | PRODUCT [...] | + + + + + | [facility] | [address] | [place] [address] | | | SERVICES, | [address] [...] [facility] | [address] | [place] [address] | | | NATALEE WORTHINGTON | VILMA [...] LABORATORY | [address] | [place] [address] | | | SERVICES, | [address] [...] + + + + | [facility] | [address] | [place] [address] | | | SERVICES, | [address] [...] | + + + + + | [facility] | [address] | [place] [address] | | | SERVICES, CORE | VILMA [...] DEPT OF | [address] | [place], [place] | | | CARDIOLOGY | [address] | [address] | | + + + + + [...] | + + + + + | [facility] | [address] | [place] [address] | | | SERVICES, NATALEE | VILMA [...] | + + + + + | [facility] | [address] | [place] [address] | | | SERVICES, CORE | PARK [...] + | [facility] | [address] | [place] [address] | | | [place] | | | [...] + + + + | [facility] | [address] | [place] [address] | | | SERVICES, CORE | PARK [...] [facility] | [address] | [place] [address] | | | SERVICES, CORE | [address]ARK [...] | | | LABORATORY | | | ARMENIAN | | | SERVICES, | | | [...] equation recommended by the | [facility] | | National Kidney Disease Education [...] + + + + | [facility] | [address] [facility] | [place] [address] | | | SERVICES, CORE | VILMA [...] + + + + | [facility] | [address] | [place] [address] | | | NATALEE WORTHINGTON | VILMA [...] + + + + | [facility] | [address] | [place] [address] | | | NATALEE WORTHINGTON | VILMA [...] | | | LABORATORY | | | ARMENIAN | | | SERVICES, | | | [...] [facility] | [address] | [place] [address] | | | SERVICES, NATALEE | PARK [...] [facility] | [address] | [place] [address] | | | SERVICES, CORE | PARK [...] | | | LABORATORY | | | ARMENIAN | | | SERVICES, | | | [...] equation recommended by the | [facility] | | National Kidney Disease Education [...] + + + + | [facility] | [address] | [place] [address] | | | ELIN, CORE | VILMA [...] + | [facility] | [address] [facility] [address] | [place], [place] | | | CARDIOLOGY | [address] | [address] | | + + + + + [...] [facility] | [address] | [place] [address] | | | SERVICES, CORE | [address]ARK [...] | | | LABORATORY | | | ARMENIAN | | | SERVICES, | | | [...] equation recommended by the | [facility] | | National Kidney Disease Education [...] + + + + | [facility] | [address] | [place] [address] | | | ELIN, CORE | PARK [...] OF | [address] | [place], [place] | | | CARDIOLOGY | [facility] | [address] | | + + + + + [...] | | | LABORATORY | | | ARMENIAN | | | SERVICES, | | | [...] equation recommended by the | [facility] | | National Kidney Disease Education [...] + + + + | [facility] | [address] | [place] [address] | | | ELIN, CORE | VILMA [...] + + + + | [facility] | [address] | [place] [address] | | | ELIN, NATALEE | VILMA [...] [facility] | [address] | [place], [place] | | | GLORIA GENAO OF CARE | [address] | [address] | | | TESTS | | | [...] + + + + | [facility] | [address] | [place] [address] | | | SERVICES, CORE | VILMA [...] | | | LABORATORY | | | ARMENIAN | | | SERVICES, | | | [...] | + + + + + | [facility] | [address] | [place] [address] | | | SERVICES, CORE | VILMA [...] | + + | Service Account, Kostas [employer] In Interface - 10/29/2017 12:13 PM PDT [...] [facility] | [address] | [place], [place] | | | GLORIA GENAO OF CARE | [address] | [address] | | | TESTS | | | [...] [facility] | [address] | [place] [address] | | | SERVICES, CORE | PARK [...] | | | LABORATORY | | | ARMENIAN | | | SERVICES, | | | [...] + + + + | [facility] | [address] [facility] | [place] [address] | | | ELIN, NATALEE | VILMA [...] [facility] | [address] | [place], [place] | | | [facility] | [address] | [address] | | | TESTS | | | [...] DEPT OF | [address] | [place], [place] | | | CARDIOLOGY | [address] | [address] | | + + + + + [...] - [facility] | [address] | [place], [place] | | | GLORIA GENAO OF CARE | [facility] | [address] | | | TESTS | | | [...] 70 - 99 mg/dL | [facility] - | | | GLUCOSE, | [...] [facility] | [address] | [place], [place] | | | [place] [facility] OF CARE | [address] | [address] | | | TESTS | | | [...] | + + + + + | [facility] | [address] | [place] [address] | | | SERVICES, CORE | VILMA [...] + | [facility] - | [address] | [place] [address] | | | [place] | | | [...] | + + + + + | [facility] | [address] [facility] | [place] [address] | | | SERVICES, CORE | VILMA [...] [facility] | [address] | [place] [address] | | | SERVICES, CORE | PARK [...] + + + + | [facility] | [address] | [place] [address] | | | SERVICES, CORE | PARK [...] | | | LABORATORY | | | ARMENIAN | | | SERVICES, | | | [...] | + + + + + | [facility] | [address] | [place] [address] | | | SERVICES, CORE | PARK [...] + + + + | [facility] | [address] | [place] [address] | | | SERVICES, CORE | VILMA [...] 70 - 99 mg/dL | [facility] - | | | GLUCOSE, | [...] PICKETT | [address] | [place], [place] | | | GLORIA GENAO OF CARE | [address] | [address] | | | TESTS | | | [...] MARQU[facility] | [address] | [place], [place] | | | [facility] | [address] | [address] | | | TESTS | | | [...] correct | | | patient, procedure, equipment, rn support services and site/side marked as | | | [...] vein. Catheter lot number: | | | [id number] with a length of 55 cm was [...] MARQUAM | [address] | [place] | | | GLORIA GENAO OF [facility] | [address] | [address] | | | TESTS | | | [...] DEPT OF | [address] | [place], [place] | | | CARDIOLOGY | [address] | [address] | | + + + + + [...] RAPHAELAM | [address] | [place], [place] | | | GLORIA GENAO OF [facility] | [address] | [address] | | | TESTS | | | [...] [facility] | [address] | [place] [address] | | | SERVICES, CORE | PARK [...] | | | LABORATORY | | | ARMENIAN | | | SERVICES, | | | [...] equation recommended by the | [facility] | | National Kid[employer] Education [...] + + + + | [facility] | [address] [facility] | [place] [address] | | | ELIN, CORE | VILMA [...] MARQUAM | [address] | [place], [place] | | | [facility] | [address] | [address] | | | TESTS | | | [...] + + + | SELENA P[facility]ET[facility] | [address] | [place], [place] | | | [facility] | [address] | [address] | | | TESTS | | | [...] MARQUAM | [address] | [place], [place] | | | [facility] | [address] | [address] | | | TESTS | | | [...] + + | [facility] | [address] | [place] [address] | | | SERVICES, NATALEE | PARK [...] | | | LABORATORY | | | ARMENIAN | | | SERVICES, | | | [...] + + + + | [facility] | [address] | [place] [address] | | | SERVICES, CORE | PARK [...] MARQUAM | [address] | [place], [place] | | | GLORIA GENAO OF CARE | [address] | [address] | | | TESTS | | | [...] | | | LABORATORY | | | ARMENIAN | | | SERVICES, | | | [...] | + + + + + | [facility] | [address] | [place] [address] | | | SERVICES, NATALEE | VILMA [...] MARKHRISAM | [address] | [place], [place] | | | [place] [facility] | [address] | [address] | | | TESTS | | | [...] DEPT OF | [address] | [place], [place] | | | CARDIOLOGY | [address] | [address] | | + + + + + [...] [facility] | [address] | [place], [place] | | | [place] POINT OF CARE | [address] | [address] | | | TESTS | | | [...] [facility] OF | [address] | [place], [place] | | | CARDIOLOGY | [facility] | [address] | | + + + + + [...] [facility] | [address] | [place] [address] | | | SERVICES, CORE | PARK [...] + | [facility] - | [address] | [place] [address] | | | [place] | | | [...] [facility] | [address] | [place] [address] | | | SERVICES, CORE | [address] | | | + + + + + ALT, PLASMA (10/24/2017 4:45 PM PDT) + +-------+ + + + | Component | Value | Ref Range | Performed | Pathologist | | | | | At | Signature | + +-------+ + + + | ALT (SGPT) | 20 | <=60 U/L | [facility] | | | | | | LABORATORY [...] [facility] | [address] | [place] [address] | | | SERVICES, CORE | PARK [...] LABORATORY | [address] | [place] [address] | | | SERVICES, CORE | PARK [...] | + + + + + | [facility] | [address] | [place] [address] | | | SERVICES, CORE | VILMA [...] [facility] | [address] | [place] [address] | | | SERVICES, CORE | PARK [...] | + + + + + | [facility] | [address] | [place] [address] | | | SERVICES, CORE | VILMA [...] [facility] | [address] | [place] [address] | | | SERVICES, CORE | PARK [...] + + | [facility] | [address] [facility] | [place] [address] | | | SERVICES, CORE | PARK [...] SELENA [facility]NA[facility] | [address] | [place] [address] | | | NATALEE WORTHINGTON | PARK [...] | + + + + + | [facility] | [address] | [place] [address] | | | SERVICES, CORE | PARK [...] | | | LABORATORY | | | ARMENIAN | | | SERVICES, | | | [...] | + + + + + | [facility] | [address] | [place] [address] | | | NATALEE WORTHINGTON | VILMA [...] | | | correct patient, procedure, equipment, rn support services and site/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 Catheter lot number: [id number] with a length of 55 | | [...] [facility] | [address] | [place], [place] | | | [facility] | [address] | [address] | | | TESTS | | | [...] | | Surgical Critical Care, PGY7 Pager: [phone] | | + + + CAPILLARY BLOOD [...] [facility] | [address] | [place], [place] | | | GLORIA GENAO OF CARE | [address] | [address] | | | TESTS | | | [...] - [facility] | [address] | [place], [place] | | | [place] POINT OF CARE | [address] | [address] | | | TESTS | | | [...] | | | LABORATORY | | | ARMENIAN | | | SERVICES, | | | [...] equation recommended by the | [facility] | | National Kidney Disease Education [...] + + + + | [facility] | [address] | [place] [address] | | | SERVICES, CORE | PARK [...] [facility] | [address] | [place] [address] | | | SERVICES, NATALEE | VILMA [...] [facility] | [address] | [place], [place] | | | GL[facility]IA GE[facility] [employer] | [facility] | [address] | | | TESTS | | | [...] [facility] | [address] | [place] [address] | | | SERVICES, CORE | PARK [...] | | | LABORATORY | | | ARMENIAN | | | SERVICES, | | | [...] | + + + + + | [facility] | [address] | [place] [address] | | | NATALEE WORTHINGTON | VILMA [...] OF | [address] | [place], [place] | | | CARDIOLOGY | [address] | [address] | | + + + + + IR GASTROSTOMY TUBE EXCHANGE (10/22/2017 2:42 PM PDT) + + | Specimen | + + | | + + + + + | Narrative | Performed At | + + + | Procedure: Gastrostomy tube exchange Primary attending | [facility] | | motorcycle repairer: Shade Goodwin M.D. Preoperative diagnosis: | RADIOLOGY VOICE | | Malfunctioning Gastrostomy tube Postoperative diagnosis: Same | RECOGNITION | | Operations: Operation 1. Removal of existing Gastrostomy tube | | | over a guide wire Operation 2. Placement of 24 Kuwaiti GABRIEL | | | gastrostomy over guide [...] a stiff glide wire the new 24 Kuwaiti gastrostomy tube was | | | inserted. [...] | | Gastrostomy tube exchangePrimary attending motorcycle repairer: Shade Goodwin | | BrynPreoperative diagnosis: Malfunctioning Gastrostomy tubePostoperative diagnosis: | | SameOperations:Operation 1. Removal of existing Gastrostomy tube over a guide | | wireOperation 2. Placement of 24 Kuwaiti GABRIEL gastrostomy over guide wireNo sedation was [...] glide wire the | | new 24 Kuwaiti gastrostomy tube was inserted. The position of [...] stiff g lide wire the new 24 Kuwaiti | |gastrostomy tube was inserted. The position [...] + | [facility] DEPT OF | [address] [facility] | [place], [place] | | | CARDIOLOGY | [address] | [address] | | + + + + + [...] + + | [facility] | [address] | [place] [address] | | | NATALEE WORTHINGTON | VILMA [...] | | | LABORATORY | | | ARMENIAN | | | SERVICES, | | | [...] | + + + + + | [facility] | [address] | [place] [address] | | | SERVICES, NATALEE | VILMA [...] GEET OF | [address] | [place], [place] | | | CARDIOLOGY | [address] | [address] | | + + + + + [...] | | | LABORATORY | | | ARMENIAN | | | SERVICES, | | | [...] + + + + | [facility] | [address] [facility] | [place] [address] | | | SERVICES, NATALEE | VILMA [...] | + + + + + | [facility] | [address] | [place] [address] | | | SERVICES, CORE | PARK [...] DEPT OF | [address] | [place], [place] | | | CARDIOLOGY | [address] | [address] | | + + + + + [...] + | [facility] | [address] | [place] [address] | | | NATALEE WORTHINGTON | PARK [...] | | | LABORATORY | | | ARMENIAN | | | SERVICES, | | | [...] + + + + | [facility] | [address] | [place] [address] | | | SERVICES, CORE | PARK [...] DEPT OF | [address] | [place], [place] | | | CARDIOLOGY | [address] | [address] | | + + + + + [...] | | | LABORATORY | | | ARMENIAN | | | SERVICES, | | | [...] | + + + + + | [facility] | [address] | [place] [address] | | | SERVICES, CORE | PARK [...] | + + + + + | [facility] | [address] | [place] [address] | | | SERVICES, CORE | VILMA [...] + | [facility] DEPT OF | [address] [facility] | [place], [place] | | | CARDIOLOGY | [address] | [address] | | + + + + + [...] | | | LABORATORY | | | ARMENIAN | | | SERVICES, | | | [...] + + | [facility] | [address] [facility] | [place] [address] | | | SERVICES, CORE | PARK [...] + + + + | [facility] | [address] [facility] | [place] [address] | | | SERVICES, NATALEE | VILMA [...] Note | + + | Service Account, OnAir Player In Interface - 10/15/2017 3:58 PM PDT [...] DEPT OF | [address] | [place], [place] | | | CARDIOLOGY | [address] | [address] | | + + + + + [...] [facility] | [address] | [place], [place] | | | [facility] [employer] | [address] | [address] | | | TESTS | | | [...] [facility] | [address] | [place] [address] | | | NATALEE WORTHINGTON | VILMA [...] | [facility] | [address] | [place], [place] | | | [facility] POINT OF CARE | [address] | [address] | | | TESTS | | | [...] + + | [facility] DEPT OF | [address] | [place], [place] | | | CARDIOLOGY | [address] | [address] | | + + + + + [...] [facility] | [address] | [place] [address] | | | SERVICES, CORE | PARK [...] | | | LABORATORY | | | ARMENIAN | | | SERVICES, | | | [...] + + + + | [facility] | [address] | [place] [address] | | | NATALEE WORTHINGTON | VILMA [...] + + + + | [facility] | [address] | [place] [address] | | | SERVICES, NATALEE | VILMA [...] [facility] | [address] | [place], [place] | | | GLORIA GENAO OF CARE | [facility] | [address] | | | TESTS | | | [...] - [facility] | [address] | [place], [place] | | | [facility] POINT OF CARE | [address] | [address] | | | TESTS | | | [...] + + + + | [facility] | [address] | [place] [address] | | | NATALEE WORTHINGTON | VILMA [...] | | | LABORATORY | | | ARMENIAN | | | SERVICES, | | | [...] | + + + + + | [facility] | [address] | [place] [address] | | | SERVICES, CORE | [address] | | | + + + + + OPERATION RECORD (10/12/2017 8:50 PM PDT) + + | Procedure Note | + + | Pilar Cotto MD - 10/12/2017 8:50 PM PDT Date of Service: 10/12/2017 | | Attending Surgeon: Chaz Munoz MD Principal Systems Architect(s): Randell Dixon M.D., | | fellow. George [...] saline. We then | | placed a 19-Kuwaiti drain deep into the abscess cavity, tracking [...] 10/12/2017 19:50:06DT: 10/12/2017 20:50:54Job #: | | [id number] | + + X-RAY PORTABLE CHEST 1 [...] + + + | [facility] | [address] | [place], [place] | | | [facility] | [address] | [address] | | | TESTS | | | [...] [facility] | [address] | [place] [address] | | | SERVICES, CORE | PARK [...] | | | LABORATORY | | | ARMENIAN | | | SERVICES, | | | [...] [facility] | [address] | [place] [address] | | | SERVICES, CORE | PARK [...] + + + + | [facility] | [address] | [place] [address] | | | NATALEE WORTHINGTON | VILMA [...] DEPT OF | [address] | [place], [place] | | | CARDIOLOGY | [address] | [address] | | + + + + + [...] DEPT OF | [address] | [place], [place] | | | CARDIOLOGY | [facility] | [address] | | + + + + + [...] [facility] | [address] | [place] [address] | | | ELIN, NATALEE | [address] [...] [facility] | [address] | [place] [address] | | | SERVICES, CORE | PARK [...] | | | LABORATORY | | | ARMENIAN | | | SERVICES, | | | [...] equation recommended by the | [facility] | | National Kidney Disease Education [...] + + + + | [facility] | [address] | [place] [address] | | | ELIN, NATALEE | [address] | | | + + + + + PROCEDURE NOTE (10/10/2017 10:00 PM PDT) + + + | Narrative | Performed At | + + + | Darius Link MD 10/12/2017 11:11 AM OPERATIVE REPORT | | | DATE OF OPERATION: 10/10/2017 ATTENDING SURGEON: 1. Dr. Munoz | | | LOG CHIPPER OPERATOR: 1. 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 Arben Hernandez, [id number] Chief Resident | | | Neurosurgery | [...] + + + + | [facility] | [address] | [place] [address] | | | SERVICES, CORE | [address] [...] | | | LABORATORY | | | ARMENIAN | | | SERVICES, | | | [...] equation recommended by the | [facility] | | National Kidney Disease Education [...] + + + + | [facility] | [address] | [place] [address] | | | SERVICES, CORE | PARK [...] [facility] | [address] | [place] [address] | | | SERVICES, NATALEE | [address] | | | + + + + + OPERATION RECORD (10/10/2017 12:40 PM PDT) + + | Procedure Note | + + | Magdiel Stock MD - 10/10/2017 12:40 PM PDT Date of Service: 10/10/2017 Attending | | Surgeon: Magdiel Stock MD Principal Systems Architect(s): Cecilia Hernandez, | | . Preoperative Diagnoses: [...] the note for this encounter.Sonal Nunez MDOHSU [id number] | | [place] [id number] Orina, MDFAH/MODLDD: | | 10/10/2017 11:52:15DT: 10/10/2017 12:40:41Job #: [id number] | | | | | |I was present for the critical portions of the procedure as described in the note for this encounter. | | | |Magdiel Stock MD | | | |Magdiel Stock MD | |[address] | |[address] [facility] | |[facility] | |[place] [address] | |[phone] | | | | | |Magdiel Stock MD | |FAH/MODL | | | | | | /[id number] | + + X-RAY ABDOMEN 1 VIEW [...] + | [facility] - | [address] | [place] [address] | | | [place] | | | | + + + [...] | + + + + + | [facility] - | [address] | [place] [address] | | | [place] | | | | + + + [...] Gram Stain: No squamous epithelial cells | [place] | | Many polymorphonuclear cells No organisms seen | | + + + + + + + + | Performing | Address | City/State/Zipcode | Phone Number | | Organization | | | | + + + + + | [facility] - | [address] | [place] [address] | | | [place] | | | | + + + [...] + | [facility] - | [address] | [place] [address] | | | [place] | | | | + + + [...] + | [facility] - | [address] | [place] [address] | | | [place] | | | [...] + | [facility] - | [address] | [place] [address] | | | [place] | | | [...] + | [facility] | [address] | [place] [address] | | | [place] | | | [...] Gram Stain: No squamous epithelial cells | [place] | | Few polymorphonuclear cells No organisms seen | | + + + + + + + + | Performing | Address | City/State/Zipcode | Phone Number | | Organization | | | | + + + + + | [facility] | [address] | [place] [address] | | | [facility] | | | | + [...] | | cells No organisms seen | [facility] | + + + + + + + + | Performing | Address | City/State/Zipcode | Phone Number | | Organization | | | | + + + + + | [facility] | [address] | [place] [address] | | | [place] | | | [...] | + + + + + | [facility] - | [address] | [place] [address] | | | [place] | | | | + + + [...] + | [facility] - | [address] | [place] [address] | | | [facility] | | | | + [...] + | [facility] | [address] | [place] [address] | | | [place] | | | [...] + | [facility] - | [address] | [place] [address] | | | [place] | | | [...] Gram Stain: No squamous epithelial cells | [facility] | | Moderate polymorphonuclear cells No organisms seen | | + + + + + + + + | Performing | Address | City/State/Zipcode | Phone Number | | Organization | | | | + + + + + | [facility] | [address] | [place] [address] | | | [place] | | | [...] + | [facility] | [address] | [place] [address] | | | [place] | | | [...] + | [facility] | [address] | [place] [address] | | | [place] | | | [...] + | [facility] | [address] | [place] [address] | | | [facility] | | | | + [...] + | [facility] - | [address] | [place] [address] | | | [place] | | | | + + + [...] Note | + + | Service Account, Playhemant Res In Interface - 10/10/2017 8:23 AM [...] | + + + + + | [facility] | [address] | [place] [address] | | | SERVICES, CORE | VILMA [...] [facility] | [address] | [place] [address] | | | NATALEE WORTHINGTON | VILMA [...] + + + + | [facility] | [address] [facility] | [place] [address] | | | NATALEE WORTHINGTON | [address]ARK [...] | | | LABORATORY | | | ARMENIAN | | | SERVICES, | | | [...] | + + + + + | [facility] | [address] | [place] [address] | | | SERVICES, CORE | PARK [...] DEPT OF | [address] | [place], [place] | | | CARDIOLOGY | [address] | [address] | | + + + + + [...] + + + + | PRODUCT | [id number] | | [facility] | | | UNIT [...] + + + + | EXPIRATION | [id number] | | [facility] | | | DATE [...] + + + + | BLOOD | [id number] | | [facility] | | | PRODUCT [...] [facility] | [address] | [place] [address] | | | SERVICES, | [address] [...] + + + + | PRODUCT | [id number] | | [facility] | | | UNIT [...] + + + + | EXPIRATION | [id number] | | [facility] | | | DATE [...] + + + + | BLOOD | [id number] | | [facility] | | | PRODUCT [...] [facility] | [address] | [place] [address] | | | SERVICES, | [address] [...] | + + + + + | [facility] | [address] | [place] [address] | | | SERVICES, | [address] [...] [facility] | [address] | [place] [address] | | | SERVICES, | [address] [...] | + + + + + | [facility] | [address] | [place] [address] | | | SERVICES, | [address] [...] + + + + | [facility] | [address] | [place] [address] | | | NATALEE WORTHINGTON | VILMA [...] DEPT OF | [address] | [place], [place] | | | CARDIOLOGY | [address] | [address] | | + + + + + [...] - [facility] | [address] | [place], [place] | | | [facility] POINT OF CARE | [address] | [address] | | | TESTS | | | [...] + + + + | [facility] | [address] [facility] | [place] [address] | | | NATALEE WORTHINGTON | VILMA [...] | + + + + + | [facility] | [address] [facility] | [place] [address] | | | SERVICES, CORE | [address] [...] | | | LABORATORY | | | ARMENIAN | | | SERVICES, | | | [...] + + + + | [facility] | [address] | [place] [address] | | | SERVICES, CORE | VILMA [...] 70 - 99 mg/dL | [facility] - | | | GLUCOSE, | [...] [facility] | [address] | [place], [place] | | | [facility] GENAO OF CARE | [address] | [address] | | | TESTS | | | [...] [facility] | [address] | [place], [place] | | | GLORIA GENAO OF CARE | [address] | [address] | | | TESTS | | | [...] [facility] | [address] | [place], [place] | | | GLORIA GENAO OF CARE | [facility] | [address] | | | TESTS | | | [...] [facility] | [address] | [place], [place] | | | GLORIA GENAO OF CARE | [address] | [address] | | | TESTS | | | [...] [facility] | [address] | [place], [place] | | | [place] POINT OF CARE | [address] | [address] | | | TESTS | | | [...] + + + + | [facility] | [address] | [place] [address] | | | ELIN, CORE | PARK [...] [facility] | [address] | [place] [address] | | | SERVICES, CORE | PARK [...] | | | LABORATORY | | | ARMENIAN | | | SERVICES, | | | [...] | + + + + + | [facility] | [address] | [place] [address] | | | NATALEE WORTHINGTON | VILMA [...] [facility] | [address] | [place], [place] | | | GL[facility]IA GE[facility] [employer] | [facility] | [address] | | | TESTS | | | [...] 70 - 99 mg/dL | [facility] - | | | GLUCOSE, | [...] [facility] | [address] | [place], [place] | | | GLORIA GENAO OF CARE | [address] | [address] | | | TESTS | | | [...] DEPT OF | [address] | [place], [place] | | | CARDIOLOGY | [address] | [address] | | + + + + + [...] [facility] | [address] | [place], [place] | | | [place] POINT OF CARE | [address] | [address] | | | TESTS | | | [...] + + + + | [facility] | [address] | [place] [address] | | | SERVICES, CORE | PARK [...] [facility] | [address] | [place] [address] | | | SERVICES, CORE | PARK [...] | | | LABORATORY | | | ARMENIAN | | | SERVICES, | | | [...] | + + + + + | [facility] | [address] | [place] [address] | | | NATALEE WORTHINGTON | VILMA [...] [facility] | [address] | [place], [place] | | | [place] POINT OF CARE | [address] | [address] | | | TESTS | | | [...] [facility] | [address] | [place], [place] | | | [facility] GE[facility] OF CARE | [address] | [address] | | | TESTS | | | [...] [facility] | [address] | [place], [place] | | | GLORIA GENAO OF CARE | [address] | [address] | | | TESTS | | | [...] [facility] | [address] | [place], [place] | | | [facility]IA [facility]O OF [facility] | [address] | [address] | | | TESTS | | | [...] + | [facility] OF | [address] [facility] | [place], [place] | | | CARDIOLOGY | [address] | [address] | | + + + + + [...] [facility] | [address] | [place] [address] | | | NATALEE WORTHINGTON | VILMA [...] + + + + | [facility] | [address] | [place] [address] | | | NATALEE WORTHINGTON | [address]ARK [...] | | | LABORATORY | | | ARMENIAN | | | SERVICES, | | | [...] | + + + + + | [facility] | [address] | [place] [address] | | | SERVICES, CORE | PARK [...] [facility] | [address] | [place], [place] | | | GLORIA GENAO OF CARE | [address] | [address] | | | TESTS | | | [...] [facility] | [address] | [place], [place] | | | GLORIA GENAO OF CARE | [address] | [address] | | | TESTS | | | [...] [facility] | [address] | [place], [place] | | | [facility] | [address] | [address] | | | TESTS | | | [...] [facility] | [address] | [place], [place] | | | GLORIA GENAO OF CARE | [address] | [address] | | | TESTS | | | [...] + + + + | [facility] | [address] | [place], [place] | | | [facility] | [facility] | [address] | | | TESTS | | | [...] | + + + + + | [facility] | [address] [facility] | [place] [address] | | | SERVICES, CORE | PARK [...] [facility] | [address] | [place] [address] | | | SERVICES, CORE | PARK [...] | | | LABORATORY | | | ARMENIAN | | | SERVICES, | | | [...] equation recommended by the | [facility] | | National Kidney Disease Education [...] + + + + | [facility] | [address] | [place] [address] | | | NATALEE WORTHINGTON | VILMA [...] 70 - 99 mg/dL | [facility] - | | | GLUCOSE, | [...] [facility] | [address] | [place], [place] | | | [facility]ARE | [address] | [address] | | | TESTS | | | [...] [facility] | [address] | [place], [place] | | | GLORIA GENAO OF [facility] | [facility] | [address] | | | TESTS | | | [...] + + + + | [facility] | [address] | [place] [address] | | | SERVICES, NATALEE | VILMA [...] by | | | | | | [address] | | | | | | Rogelio Pickard, [facility],[place] | | | | | | [phone] | | | | | | [phone]. | | | | | | Gui [...] [facility] | [address] | [place], [place] | | | [facility] | | [address] | | + + + + + [...] | + + + + + | [facility] | [address] | [place] [address] | | | SERVICES, CORE | VILMA [...] | + + + + + | [facility] | [address] | [place] [address] | | | SERVICES, CORE [...] modified from | [facility] | | original kaiako kura kaupapa maori's approved specifications. The performance | LABORATORY | | of the DERMATOLOGIST HIV Combo test, with or without confirmation, [...] | + + + + + | [facility] | [address] [facility] | [place] [address] | | | SERVICES, SPECIAL | VILMA [...] [facility] | [address] [address] | [place], [place] | | | GLORIA GENAO OF CARE | [facility] | [address] | | | TESTS | | | [...] MARQUAM | [address] | [place], [place] | | | GLORIA GENAO OF [facility] | [address] | [address] | | | TESTS | | | [...] [facility] | [address] | [place] [address] | | | NATALEE WORTHINGTON | VILMA [...] | + + + + + | [facility] | [address] | [place] [address] | | | SERVICES, CORE | PARK [...] | | | LABORATORY | | | ARMENIAN | | | SERVICES, | | | [...] + + + + | [facility] | [address] | [place] [address] | | | SERVICES, CORE | VILMA [...] PICKETT | [address] | [place], [place] | | | GLORIA GENAO OF GM | [address] | [address] | | | TESTS | | | [...] - RAPHAELAM | [address] | [place], [place] | | | GLORIA GENAO OF CARE | [address] | [address] | | | TESTS | | | [...] DEPT OF | [address] | [place], [place] | | | CARDIOLOGY | [address] | [address] | | + + + + + [...] Note | + + | Service Account, MyWave Res In Interface - 10/02/2017 2:07 PM [...] PIYUSH | [address] | [place], [place] | | | [place] OF [facility] | [address] | [address] | | | TESTS | | | [...] PICKETT | [address] | [place], [place] | | | GLORIA GENAO OF GM | [facility] | [address] | | | TESTS | | | [...] + + + + | [facility] | [address] | [place] [address] | | | SERVICES, CORE | PARK [...] 2.6 mg/dL | [facility] | | | LASMA | | | [...] [facility] | [address] | [place] [address] | | | NATALEE WORTHINGTON | VILMA [...] | | | LABORATORY | | | ARMENIAN | | | SERVICES, | | | [...] | + + + + + | [facility] | [address] | [place] [address] | | | SERVICES, CORE | VILMA [...] MARQUAM | [address] | [place], [place] | | | [facility]ARE | [address] | [address] | | | TESTS | | | [...] SELENA PICKETT | [address] | [place], [place] | | | [facility] | [address] | [address] | | | TESTS | | | [...] MARQUAM | [address] | [place], [place] | | | [facility] | [address] | [address] | | | TESTS | | | [...] Note | + + | Service Account, OnAir Player In Interface - 10/01/2017 11:34 AM PDT [...] PICKETT | [address] | [place], [place] | | | GLORIA GENAO OF GM | [address] | [address] | | | TESTS | | | [...] + + + + | [facility] | [address] | [place] [address] | | | SERVICES, CORE | [address] | | | + + + + + MAGNESIUM, PLASMA (10/01/2017 5:25 AM PDT) + +-------+ + + + | Component | Value | Ref Range | Performed | Pathologist | | | | | At | Signature | + +-------+ + + + | MAGNESIUM,P | 2.0 | 1.6 - 2.6 mg/dL | [facility] [...] [facility] | [address] | [place] [address] | | | SERVICES, NATALEE | VILMA [...] | | | LABORATORY | | | ARMENIAN | | | SERVICES, | | | [...] | + + + + + | [facility] | [address] [facility] | [place] [address] | | | SERVICES, NATALEE | VILMA [...] MARQUAM | [address] | [place], [place] | | | GLORIA GENAO OF CARE | [address] | [address] | | | TESTS | | | [...] MARQUAM | [address] | [place], [place] | | | GLORIA GENAO OF CARE | [address] | [address] | | | TESTS | | | [...] + | [facility] | [address] | [place], [place] | | | CARDIOLOGY | [address] | [address] | | + + + + + [...] RAPHAELAM | [address] | [place], [place] | | | GLORIA GENAO OF CARE | [address] | [address] | | | TESTS | | | [...] - RAPHAELAM | [address] | [place], [place] | | | [facility] | [address] | [address] | | | TESTS | | | [...] | + + + + + | [employer] [facility] | [address] | [place] [address] | | | SERVICES, CORE | PARK [...] [facility] | [address] | [place] [address] | | | SERVICES, CORE | PARK [...] | | | LABORATORY | | | ARMENIAN | | | SERVICES, | | | [...] | + + + + + | [facility] | [address] | [place] [address] | | | SERVICES, NATALEE | VILMA [...] 70 - 99 mg/dL | [facility] - | | | GLUCOSE, | [...] PICKETT | [address] | [place], [place] | | | [facility] | [address] | [address] | | | TESTS | | | [...] PIYUSH | [address] | [place], [place] | | | GLORIA GENAO OF CARE | [address] | [address] | | | TESTS | | | [...] Jorge PICKETT | [address] | [place], [place] | | | GLORIA GENAO OF [facility] | [address] | [address] | | | TESTS | | | [...] DEPT OF | [address] | [place], [place] | | | CARDIOLOGY | [address] | [address] | | + + + + + [...] MARQUAM | [address] | [place], [place] | | | [facility] | [address] | [address] | | | TESTS | | | [...] + + + + | [facility] | [address] | [place] [address] | | | NATALEE WORTHINGTON | PARK [...] | | | LABORATORY | | | ARMENIAN | | | SERVICES, | | | [...] | + + + + + | [facility] | [address] | [place] [address] | | | SERVICES, CORE | PARK [...] [facility] | [address] | [place] [address] | | | NATALEE WORTHINGTON | VILMA [...] PIYUSH | [address] | [place], [place] | | | [facility] | [facility] | [address] | | | TESTS | | | [...] 70 - 99 mg/dL | [facility] - | | | GLUCOSE, | [...] PICKETT | [address] | [place], [place] | | | GLORIA GENAO OF CARE | [facility] | [address] | | | TESTS | | | [...] MARQUAM | [address] | [place], [place] | | | GLORIA GENAO OF GM | [address] | [address] | | | TESTS | | | [...] [facility] | [address] | [place], [place] | | | CARDIOLOGY | [address] | [address] | | + + + + + [...] PICKETT | [address] | [place], [place] | | | GLORIA GENAO OF [facility] | [address] | [address] | | | TESTS | | | [...] [facility] | [address] | [place] [address] | | | NATALEE WORTHINGTON | VILMA [...] + + + + | [facility] | [address] | [place] [address] | | | NATALEE WORTHINGTON | PARK [...] | | | LABORATORY | | | ARMENIAN | | | SERVICES, | | | [...] | + + + + + | [facility] | [address] | [place] [address] | | | SERVICES, CORE | PARK [...] MARQUAM | [address] | [place], [place] | | | GLORIA GENAO OF CARE | [address] | [address] | | | TESTS | | | [...] - PIYUSH | [address] | [place], [place] | | | CH[facility]WICK PALATINE OF [facility] | [address] | [address] | | | TESTS | | | [...] poorly cleared with dry swallows. [facility] for full details | | [...] MARQUAM | [address] | [place], [place] | | | [facility] | [address] | [address] | | | TESTS | | | [...] MARQUAM | [address] | [place] | | | GLORIA GENAO OF [facility] | [address] | [address] | | | TESTS | | | [...] + + + + | [facility] | [address] [facility] | [place] [address] | | | NATALEE WORTHINGTON | VILMA [...] | + + + + + | [facility] | [address] | [place] [address] | | | SERVICES, CORE | PARK [...] | | | LABORATORY | | | ARMENIAN | | | SERVICES, | | | [...] + + + + | [facility] | [address] | [place] [address] | | | SERVICES, CORE | VILMA [...] 70 - 99 mg/dL | [facility] - | | | GLUCOSE, | [...] PICKETT | [address] | [place], [place] | | | GLORIA GENAO OF [facility] | [address] | [address] | | | TESTS | | | [...] MARQUAM | [address] | [place], [place] | | | GLORIA GENAO OF [facility] | [address] | [address] | | | TESTS | | | [...] + | [facility] | [address] [facility] | [place], [place] | | | CARDIOLOGY | [address] | [address] | | + + + + + [...] PICKETT | [address] | [place], [place] | | | GLORIA GENAO OF [facility] | [facility] | [address] | | | TESTS | | | [...] [facility] | [address] | [place], [place] | | | GLORIA GENAO OF GM | [facility] | [address] | | | TESTS | | | [...] 70 - 99 mg/dL | [facility] - | | | GLUCOSE, | [...] RAPHAELAM | [address] | [place], [place] | | | GLORIA GENAO OF CARE | [address] | [address] | | | TESTS | | | [...] [facility] | [address] | [place] [address] | | | NATALEE WORTHINGTON | VILMA [...] | + + + + + | [facility] | [address] | [place] [address] | | | SERVICES, CORE | VILMA [...] | | | LABORATORY | | | ARMENIAN | | | SERVICES, | | | [...] + + + + | [facility] | [address] | [place] [address] | | | SERVICES, CORE | VILMA [...] 70 - 99 mg/dL | [facility] - | | | GLUCOSE, | [...] PICKETT | [address] | [place], [place] | | | GLORIA GENAO OF [facility] | [address] | [address] | | | TESTS | | | [...] + + + + | [facility] | [address] | [place] [address] | | | SERVICES, CORE | VILMA [...] | + + + + + | [facility] | [address] [facility] | [place] [address] | | | SERVICES, CORE | VILMA [...] | | | LABORATORY | | | ARMENIAN | | | SERVICES, | | | [...] equation recommended by the | [facility] | | National Kidney Disease Education [...] + + + + | [facility] | [address] | [place] [address] | | | SERVICES, CORE | VILMA [...] DEPT OF | [address] | [place], [place] | | | CARDIOLOGY | [address] | [address] | | + + + + + [...] Note | + + | Service Account, MyWave Res In Interface - 09/24/2017 4:09 PM [...] + + + + | [facility] | [address] [facility] | [place] [address] | | | ELIN, NATALEE | VILMA [...] | | | LABORATORY | | | ARMENIAN | | | SERVICES, | | | [...] [facility] | [address] | [place] [address] | | | SERVICES, CORE [...] + + + + | [facility] | [address] [facility] | [place] [address] | | | NATALEE WORTHINGTON | VILMA [...] + + | [facility] | [address] | [place] [address] | | | SERVICES, CORE | PARK [...] [facility] | [address] | [place] [address] | | | ELIN, NATALEE | VILMA [...] | | | LABORATORY | | | ARMENIAN | | | SERVICES, | | | [...] 10 | 4 - 11 mmol/L | [facility] | | | GAP(ALB | | | [...] | + + + + + | [facility] | [address] | [place] [address] | | | SERVICES, CORE | VILMA [...] MARQUAM | [address] | [place], [place] | | | [facility] | [address] | [address] | | | TESTS | | | [...] + + | SELENA PICKETT | [address] [facility] [address] | [place], [place] | | | [facility] [facility] | [address] | [address] | | | TESTS | | | [...] | + + + + + | [facility] | [address] | [place] [address] | | | SERVICES, NATALEE | VILMA [...] [facility] | [address] | [place], [place] | | | CARDIOLOGY | [address] | [address] | | + + + + + [...] + + + + | [facility] | [address] | [place] [address] | | | SERVICES, CORE | PARK [...] [facility] | [address] | [place] [address] | | | SERVICES, CORE | VILMA [...] | | | LABORATORY | | | ARMENIAN | | | SERVICES, | | | [...] + + + + | [facility] | [address] | [place] [address] | | | NATALEE WORTHINGTON | VILMA [...] SELENA PICKETT | [address] | [place], [place] | | | [facility] | [address] | [address] | | | TESTS | | | [...] + + + + | [facility] | [address] | [place] [address] | | | NATALEE WORTHINGTON | PARK [...] + + + + | [facility] | [address] | [place] [address] | | | SERVICES, CORE | VILMA [...] | | | LABORATORY | | | ARMENIAN | | | SERVICES, | | | [...] | + + + + + | [facility] | [address] | [place] [address] | | | SERVICES, CORE | VILMA [...] Note | + + | Service Account, RadiThe Start Project Res In Interface - 09/20/2017 5:17 PM [...] DEPT OF | [address] | [place], [place] | | | CARDIOLOGY | [address] | [address] | | + + + + + [...] [facility] | [address] | [place] [address] | | | SERVICES, CORE | [address] | | | + + + + + MAGNESIUM, PLASMA (09/20/2017 5:32 AM PDT) + +-------+ + + + | Component | Value | Ref Range | Performed | Pathologist | | | | | At | Signature | + +-------+ + + + | MAGNESIUM,P | 2.2 | 1.6 - 2.6 mg/dL | [facility] [...] [facility] | [address] | [place] [address] | | | SERVICES, CORE | [address] [...] | | | LABORATORY | | | ARMENIAN | | | SERVICES, | | | [...] | + + + + + | [facility] | [address] | [place] [address] | | | NATALEE WORTHINGTON | VILMA [...] + + + + | [facility] | [address] | [place] [address] | | | SERVICES, CORE | PARK [...] [facility] | [address] | [place] [address] | | | SERVICES, CORE | [address]ARK [...] | | | LABORATORY | | | ARMENIAN | | | SERVICES, | | | [...] | + + + + + | [facility] | [address] | [place] [address] | | | SERVICES, NATALEE | VILMA [...] + + + + | [facility] | [address] | [place] [address] | | | SERVICES, CORE | PARK [...] [facility] | [address] | [place] [address] | | | ELIN, NATALEE | VILMA [...] | | | LABORATORY | | | ARMENIAN | | | SERVICES, | | | [...] | + + + + + | [facility] | [address] [facility] | [place] [address] | | | SERVICES, CORE | VILMA [...] Note | + + | Service Account, OnAir Player In Interface - 09/17/2017 11:53 AM PDT [...] | + + + + + | [facility] | [address] | [place] [address] | | | SERVICES, CORE | PARK [...] + + | [facility] | [address] [facility] | [place] [address] | | | SERVICES, CORE | [address] [...] | | | LABORATORY | | | ARMENIAN | | | SERVICES, | | | [...] equation recommended by the | [facility] | | National Kidney Disease Education [...] + + + + | [facility] | [address] | [place] [address] | | | SERVICES, [facility] | [address] | | | + + + + + X-RAY PORTABLE CHEST PICC LINE CHECK (09/16/2017 1:11 PM PDT) + + | Specimen | + + | | + + + + + | Narrative | Performed At | + + + | EXAM: NV CHEST PICC LINE CHECK HISTORY: PICC placement | [facility] | | COMPARISON: Earlier today FINDINGS: Left [...] Note | + + | Service Account, OnAir Player In Interface - 09/16/2017 1:34 PM PDT [...] Note | + + | Service Account, OnAir Player In Interface - 09/16/2017 11:41 AM PDT [...] [facility] | [address] | [place] [address] | | | SERVICES, CORE | PARK [...] [facility] | [address] | [place] [address] | | | SERVICES, CORE | PARK [...] | | | LABORATORY | | | ARMENIAN | | | SERVICES, | | | [...] equation recommended by the | [facility] | | National Kidney Disease Education [...] + + + + | [facility] | [address] | [place] [address] | | | NATALEE WORTHINGTON | VILMA [...] + +---------+ + + | [facility] RADIOLOGY | | | | | [...] Note | + + | Service Account, MyWave Res In Interface - 09/15/2017 6:43 PM [...] | | location: Unit:[facility] Room: [facility] Providers: Attending name: | | [...] | pause verifies correct patient, procedure, equipment, rn support services | | | and site/side marked as [...] | area Basilic vein. Catheter lot number: [id number] with a length of 55 | | [...] Note | + + | Service Account, MyWave Res In Interface - 09/15/2017 2:13 PM [...] [facility] | [address] | [place] [address] | | | SERVICES, CORE | PARK [...] [facility] | [address] | [place] [address] | | | SERVICES, CORE | VILMA [...] | | | LABORATORY | | | ARMENIAN | | | SERVICES, | | | [...] | + + + + + | [facility] | [address] | [place] [address] | | | NATALEE WORTHINGTON | VILMA [...] | + + + + + | [facility] | [address] | [place] [address] | | | SERVICES, CORE [...] [facility] | [address] | [place] [address] | | | SERVICES, CORE | PARK [...] | | | LABORATORY | | | ARMENIAN | | | SERVICES, | | | [...] equation recommended by the | [facility] | | National Kidney Disease Education [...] [facility] | [address] | [place] [address] | | | SERVICES, CORE | PARK [...] | + + + + + | [facility] | [address] | [place] [address] | | | SERVICES, CORE | VILMA [...] [facility] | [address] | [place] [address] | | | SERVICES, CORE | PARK [...] | | | LABORATORY | | | ARMENIAN | | | SERVICES, | | | [...] + + + + | [facility] | [address] | [place] [address] | | | SERVICES, CORE | [address] | | | + + + + + X-RAY ABD LTD FEEDING TUBE EVAL (09/12/2017 6:50 AM PDT) + + | Specimen | + + | | + + + + + | Narrative | Performed At | + + + | EXAM: ABD LTD FEEDING TUBE EVAL HISTORY: Dobbhoff tube | [facility] | | placement. COMPARISON: 09/10/2017. FINDINGS/IMPRESSION: Tip [...] Note | + + | Service Account, MyWave Res In Interface - 09/12/2017 9:13 AM [...] [facility] | [address] | [place] [address] | | | NATALEE WORTHINGTON | VILMA [...] + + + + | [facility] | [address] | [place] [address] | | | SERVICES, CORE | PARK [...] | | | LABORATORY | | | ARMENIAN | | | SERVICES, | | | [...] | + + + + + | [facility] [facility] | [address] | [place] [address] | | | SERVICES, CORE | VILMA [...] Note | + + | Service Account, MyWave Res In Interface - 09/12/2017 6:48 AM [...] | + + + + + | [facility] | [address] | [place] [address] | | | SERVICES, CORE | PARK [...] + + | [facility] | [address] [facility] | [place] [address] | | | SERVICES, CORE | [address] [...] | | | LABORATORY | | | ARMENIAN | | | SERVICES, | | | [...] equation recommended by the | [facility] | | National Kidney Disease Education [...] | + + + + + | [facility] | [address] | [place] [address] | | | NATALEE WORTHINGTON | VILMA [...] [facility] | [address] | [place] [address] | | | NATALEE WORTHINGTON | VILMA [...] Note | + + | Service Account, OnAir Player In Interface - 09/10/2017 2:31 PM PDT [...] + +---------+ + + | [facility] RADIOLOGY | | | | | [...] [facility] | [address] | [place] [address] | | | SERVICES, CORE | PARK [...] | + + + + + | [facility] | [address] | [place] [address] | | | SERVICES, CORE | VILMA [...] [facility] | [address] | [place] [address] | | | NATALEE WORTHINGTON | VILMA [...] + + + + | [facility] | [address] [facility] | [place] [address] | | | NATALEE WORTHINGTON | PARK [...] | | | LABORATORY | | | ARMENIAN | | | SERVICES, | | | [...] | + + + + + | [facility] | [address] | [place] [address] | | | SERVICES, CORE | PARK [...] + | [facility] | [address] [facility] | [place], [place] | | | CARDIOLOGY | [address] | [address] | | + + + + + [...] by: dEelmira Parsons MD | + + + +---------+ [...] [facility] | [address] | [place], [place] | | | GLORIA GENAO OF CARE | [address] | [address] | | | TESTS | | | [...] [facility] | [address] | [place] [address] | | | SERVICES, CORE | PARK [...] | + + + + + | [facility] | [address] | [place] [address] | | | SERVICES, CORE | PARK [...] | | | LABORATORY | | | ARMENIAN | | | SERVICES, | | | [...] [facility] | [address] | [place] [address] | | | SERVICES, CORE | PARK [...] + + + + | [facility] | [address] [facility] | [place] [address] | | | SERVICES, CORE | VILMA [...] | | | LABORATORY | | | ARMENIAN | | | SERVICES, | | | [...] [facility] | [address] | [place] [address] | | | SERVICES, CORE | VILMA [...] + + + + | [facility] | [address] | [place] [address] | | | SERVICES, CORE | PARK [...] + + + + | [facility] | [address] | [place] [address] | | | SERVICES, CORE | VILMA [...] DEPT OF | [address] | [place], [place] | | | CARDIOLOGY | [address] | [address] | | + + + + + [...] [facility] | [address] | [place] [address] | | | SERVICES, CORE | PARK [...] | | | LABORATORY | | | ARMENIAN | | | SERVICES, | | | [...] + + + + | [facility] | [address] | [place] [address] | | | NATALEE WORTHINGTON | VILMA [...] + + | [facility] | [address] [facility] | [place] [address] | | | NATALEE WORTHINGTON | PARK [...] Note | + + | Service Account, [employer] Project Res In Interface - 09/07/2017 10:46 AM [...] + + + + | [facility] | [address] [facility] | [place], [place] | | | CARDIOLOGY | [address] | [address] | | + + + + + [...] | | | attempt. Midline lot number [id number]; there was positive blood | | | [...] | | | LABORATORY | | | ARMENIAN | | | SERVICES, | | | [...] | + + + + + | [facility] | [address] | [place] [address] | | | SERVICES, CORE | PARK [...] | + + + + + | [facility] | [address] | [place] [address] | | | SERVICES, CORE | PARK [...] [facility] | [address] | [place] [address] | | | SERVICES, CORE | PARK [...] + + + + | [facility] | [address] | [place] [address] | | | SERVICES, NATALEE | VILMA [...] | | | LABORATORY | | | ARMENIAN | | | SERVICES, | | | [...] | + + + + + | [facility] | [address] | [place] [address] | | | SERVICES, CORE | PARK [...] | | | LABORATORY | | | ARMENIAN | | | SERVICES, | | | [...] | + + + + + | [facility] | [address] [facility] | [place] [address] | | | SERVICES, CORE | VILMA [...] tomorrow morning. CB Henson Pager / ID: [phone] | | + + + CULTURE, SPUTUM [...] + | [facility] | [address] | [place] [address] | | | [place] | | | [...] [facility] | [address] | [place] [address] | | | SERVICES, CORE | VILMA [...] | [facility] | | | GRAVITY | Epping performed by | | LABORATORY | | [...] + | [facility] | [address] | [place] [address] | | | SERVICES, CORE | PARK [...] + + + + | [facility] | [address] | [place] [address] | | | SERVICES, NATALEE | [address] | | | + + + + + CULTURE, BLOOD BACTI & YEAST [facility] (09/04/2017 1:16 PM PDT) + + + [...] [facility] | [address] | [place] [address] | | | SERVICES, CORE | PARK [...] DEPT OF | [address] | [place], [place] | | | CARDIOLOGY | [address] | [address] | | + + + + + [...] | + + + + + | [facility] | [address] | [place] [address] | | | SERVICES, CORE | VIL[address] [...] | + + + + + | [facility] | [address] [facility] | [place] [address] | | | SERVICES, CORE | [address] [...] | | | LABORATORY | | | ARMENIAN | | | SERVICES, | | | [...] + + + + | [facility] | [address] | [place] [address] | | | SERVICES, CORE | PARK [...] [facility] | [address] | [place] [address] | | | NATALEE WORTHINGTON | [address] [...] [facility] | [address] | [place], [place] | | | GLORIA GENAO OF CARE | [facility] | [address] | | | TESTS | | | [...] [facility] | [address] | [place], [place] | | | [place] POINT OF CARE | [address] | [address] | | | TESTS | | | [...] [facility] | [address] | [place], [place] | | | [place] [facility]INT OF CARE | [address] | [address] | | | TESTS | | | [...] [facility] | [address] | [place], [place] | | | [place] POINT OF CARE | [address] | [address] | | | TESTS | | | [...] | + + | Service Account, Kostsa Casper In Interface - 09/03/2017 10:27 AM [...] detected | [facility] | + + + + + + + + | Performing | Address | City/State/Zipcode | Phone Number | | Organization | | | | + + + + + | [facility] - | [address] | [place] [address] | | | [place] | | | [...] + + + + | [facility] | [address] | [place] [address] | | | SERVICES, CORE | PARK [...] Note | + + | Service Account, OnAir Player In Interface - 09/03/2017 9:54 AM PDT [...] + | [facility] - | [address] | [place] [address] | | | [place] | | | | + + + [...] [facility] | [address] | [place] [address] | | | SERVICES, CORE | PARK [...] | + + + + + | [facility] | [address] | [place] [address] | | | SERVICES, CORE | [address] [...] | | | LABORATORY | | | ARMENIAN | | | SERVICES, | | | [...] | + + + + + | [facility] | [address] [facility] | [place] [address] | | | SERVICES, CORE | [address] [...] | + + + + + | [facility] | [address] [facility] | [place] [address] | | | SERVICES, [facility] | [address] | | | + + + + + OPERATION RECORD (09/02/2017 6:53 PM PDT) + + | Procedure Note | + + | Fidelina Shields MD - 09/02/2017 6:53 PM PDT Date of Service: 09/02/2017 | | Attending Surgeon: Fidelina Shields MD Principal Systems Architect(s): | | Ajay Garcia MD, resident. Preoperative [...] 09/02/2017 18:15:29DT: 09/02/2017 18:53:52Job #: | | [id number] to federal Medicare and Medicaid regulations I was present for | | the entire procedure.Fidelina Shields MDAssistant ProfessorDepartment of SurgeryOffice: | | [phone]: [id number] has been electronically signed by Fidelina Shields MD, | | 09/03/2017 at 9:11 AM. | | | | | |Fidelina Shields MD | |Toll Bridge Attendant | |Department of Surgery | |Office: [phone] | |Pager: [phone] | | | |This has been electronically [...] [facility] | [address] | [place] [address] | | | SERVICES, CORE | [address] [...] | + + + + + | [facility] | [address] | [place] [address] | | | SERVICES, CORE | PARK [...] | + + + + + | [facility] - | [address] | [place] [address] | | | [place] | | | [...] [facility] | [address] | [place] [address] | | | SERVICES, NATALEE | [address] [...] | | | LABORATORY | | | ARMENIAN | | | SERVICES, | | | [...] | + + + + + | [facility] | [address] [facility] | [place] [address] | | | SERVICES, NATALEE | [address] [...] Note | + + | Service Account, MyWave Res In Interface - 09/02/2017 4:25 PM [...] Attending Physician: Fidelina Shields MD Assistants: Vicente aGrcia MD - | | | resident Preoperative [...] | | contact: INGRID Garcia, R4 Surgery [phone] Pursuant | | | to federal Medicare and Medicaid regulations I was present for the | | | entire procedure. Fidelina Shields MD Toll Bridge Attendant | | | Department of Surgery Office: [phone] Pager: [phone] This has | | | been electronically [...] + + + + | [facility] | [address] | [place] [address] | | | SERVICES, CORE | [address] [...] (H) | 0.90 - 1.20 INR | [facility] | | | | | | LABORATORY [...] | + + + + + | [facility] | [address] [facility] | [place] [address] | | | SERVICES, CORE | [address] | | | + + + + + OPERATION RECORD (09/02/2017 6:51 AM PDT) + ---+ | Procedure Note | + ---+ | Fidelina Shields MD - 09/02/2017 6:51 AM PDT Date of Service: 09/01/2017 | | Attending Surgeon: Fidelina Shields MD Principal Systems Architect(s): Haim Peralta MD. | | Ajay Garcia [...] 09/02/2017 06:17:53DT: 09/02/2017 | | 06:51:37Job #: [id number] to federal Medicare and Medicaid regulations I | | was present for the entire procedure.Fidelina Shields MDAssdioni ProfessorDepartment of | | SurgeryOffice: [phone]: [id number] has been electronically signed by Fidelina Snyder | | MD Cornelius, 09/02/2017 at 10:40 AM. | | | | | |Pursuant to federal Medicare and Medicaid regulations I was present for the entire procedur e. | | | | | | | |Fidelina Shields MD | |Toll Bridge Attendant | |Department of Surgery | |Office: [phone] | |Pager: [phone] | | | |This has been electronically [...] [facility] | [address] | [place] [address] | | | SERVICES, CORE | PARK [...] | + + + + + | [facility] | [address] | [place] [address] | | | SERVICES, CORE | [address] [...] + + + + | PRODUCT | [id number] | | [facility] | | | UNIT [...] + + + + | EXPIRATION | [id number] | | [facility] | | | DATE [...] + + + + | BLOOD | [id number] | | [facility] | | | PRODUCT [...] [facility] | [address] | [place] [address] | | | SERVICES, | [address] [...] | + + + + + | [facility] | [address] | [place] [address] | | | SERVICES, CORE | VIL[address] [...] | | | LABORATORY | | | ARMENIAN | | | SERVICES, | | | [...] [facility] | [address] | [place] [address] | | | SERVICES, CORE | [address] [...] | + + + + + | [facility] | [address] | [place] [address] | | | NATALEE WORTHINGTON | [address] [...] | | | | INFORMATION: | | [place] | | | | Quanti[employer] | [...] (http://www.cdc.gov/mmwr | | | | | | /preview/[email or web address] | | | | | | [email or web address].htm), [...] [facility] - | | | | by [employer], | | AIRPORT - | | | | | | [place] | | | | [address] | | | | | | [address] | | | | | | [address] | | | | | | | | | | | | www.[employer] | | | | | | [...] | + + + + + | [employer] - [facility] - | [address] | [place] [address] | | | [place] | | | [...] + + + + | [facility] | [address] | [place] [address] | | | SERVICES, CORE | PARK [...] | + + + + + | [facility] | [address] | [place] [address] | | | SERVICES, CORE | [address] [...] Note | + + | Service Account, OnAir Player In Interface - 09/02/2017 8:55 AM PDT [...] [facility] | [address] | [place] [address] | | | SERVICES, CORE | PARK [...] LABORATORY | [address] | [place] [address] | | | SERVICES, CORE | PARK [...] + + + + | PRODUCT | [id number] | | [facility] | | | UNIT [...] + + + + | EXPIRATION | [id number] | | [facility] | | | DATE [...] + + + + | BLOOD | [id number] | | [facility] | | | PRODUCT [...] [facility] | [address] | [place] [address] | | | SERVICES, | [address] [...] + + + + | [facility] | [address] | [place] [address] | | | SERVICES, CORE | PARK [...] + + + + | [facility] | [address] | [place] [address] | | | NATALEE WORTHINGTON | [address] [...] | + + + + + | [facility] | [address] [facility] | [place] [address] | | | SERVICES, CORE | [address] [...] | | | LABORATORY | | | ARMENIAN | | | SERVICES, | | | [...] | + + + + + | [facility] | [address] | [place] [address] | | | SERVICES, CORE | [address] [...] + + + + | [facility] | [address] [facility] | [place] [address] | | | SERVICES, CORE | [address] [...] | + + + + + | [facility] | [address] | [place] [address] | | | SERVICES, CORE | [address] | | | + + + + + IR LULA HEREDIA (09/01/2017 2:06 PM PDT) + + | Specimen | + + | | + + + + + | Narrative | Performed At | + + + | Procedure: Selective visceral arteriography. IR Attending: | [facility] | | Marquez Hubbard MD, PhD IR [...] arteries | | | from the right HANGAR ATTENDANT approach. DSA was performed from the left [...] micropuncture access set was exchanged for a AnswerGo.comson wire. Under fluoroscopic guidance, | | a 5 Fr flush catheter was used to evaluate the distal abdominal aorta and pelvic | | vasculature. A wire and catheter were then used to select the left common and internal | | iliac arteries from the right HANGAR ATTENDANT approach. DSA was performed from the left [...] micropuncture access set was exchanged for a ManageIQ wire. Under fluoroscopic guidance, a 5 Fr flush catheter was used | |to evaluate the distal abdominal aorta and pelvic vasculature. A wire and catheter were th en used to select the left common and internal iliac arteries from the right HANGAR ATTENDANT approach. DSA was performed from the left [...] + + + | [facility] | [address] | [place], [place] | | | GLORIA GENAO OF [facility] | [address] | [address] | | | TESTS | | | | + + + + + EXPLORATORY LAPAROTOMY (09/01/2017 12:31 PM PDT) + + + | Narrative | Performed At | + + + | Fidelina Shields MD 09/01/2017 12:42 PM BRIEF OPERATIVE NOTE: | | | Date: 09/01/2017 Author: Fidelina Shields MD | | | Attending Physician: Fidelina hSields MD Principal Systems Architect(s): Haim Peralta | | | , Vicente Garcia MD, [facility] MS3 Prior to the | | [...] case. | | | Fidelina Shields MD Toll Bridge Attendant Division of Trauma, | | | Critical Care and Acute Care Surgery Office: [phone] Pager: | [phone] | | + + + ABG-FULL ABL, [...] [facility] | [address] | [place], [place] | | | [place] POINT OF CARE | [address] | [address] | | | TESTS | | | [...] + + + + | [facility] | [address] | [place] [address] | | | SERVICES, CORE | VILMA [...] [facility] | [address] | [place], [place] | | | GLORIA GENAO OF [employer] | [address] | [address] | | | TESTS | | | [...] + + + + | PRODUCT | [id number] | | [facility] | | | UNIT [...] + + + + | EXPIRATION | [id number] | | [facility] | | | DATE [...] + + + + | BLOOD | [id number] | | [facility] | | | PRODUCT [...] [facility] | [address] | [place] [address] | | | SERVICES, | [address] [...] + + + + | PRODUCT | [id number] | | [facility] | | | UNIT [...] + + + + | EXPIRATION | [id number] | | [facility] | | | DATE [...] + + + + | BLOOD | [id number] | | [facility] | | | PRODUCT [...] [facility] | [address] | [place] [address] | | | SERVICES, | [address] [...] + + + + | PRODUCT | [id number] | | [facility] | | | UNIT [...] + + + + | EXPIRATION | [id number] | | [facility] | | | DATE [...] + + + + | BLOOD | [id number] | | [facility] | | | PRODUCT [...] [facility] | [address] | [place] [address] | | | SERVICES, | [address] [...] + + + + | PRODUCT | [id number] | | [facility] | | | UNIT [...] + + + + | EXPIRATION | [id number] | | [facility] | | | DATE [...] + + + + | BLOOD | [id number] | | [facility] | | | PRODUCT [...] [facility] | [address] | [place] [address] | | | SERVICES, | [address] [...] + + + + | PRODUCT | [id number] | | [facility] | | | UNIT [...] + + + + | EXPIRATION | [id number] | | [facility] | | | DATE [...] + + + + | BLOOD | [id number] | | [facility] | | | PRODUCT [...] [facility] | [address] | [place] [address] | | | SERVICES, | [address] [...] + + + + | PRODUCT | [id number] | | [facility] | | | UNIT [...] + + + + | EXPIRATION | [id number] | | [facility] | | | DATE [...] + + + + | BLOOD | [id number] | | [facility] | | | PRODUCT [...] | + + + + + | [facility] | [address] | [place] [address] | | | SERVICES, | [address] [...] + + + + | PRODUCT | [id number] | | [facility] | | | UNIT [...] + + + + | EXPIRATION | [id number] | | [facility] | | | DATE [...] + + + + | BLOOD | [id number] | | [facility] | | | PRODUCT [...] | + + + + + | [facility] | [address] | [place] [address] | | | SERVICES, | [address] [...] + + + + | PRODUCT | [id number] | | [facility] | | | UNIT [...] + + + + | EXPIRATION | [id number] | | [facility] | | | DATE [...] + + + + | BLOOD | [id number] | | [facility] | | | PRODUCT [...] | + + + + + | [facility] | [address] | [place] [address] | | | SERVICES, | [address] [...] + + + + | PRODUCT | [id number] | | [facility] | | | UNIT [...] + + + + | EXPIRATION | [id number] | | [facility] | | | DATE [...] + + + + | BLOOD | [id number] | | [facility] | | | PRODUCT [...] [facility] | [address] | [place] [address] | | | SERVICES, | [address] [...] + + + + | PRODUCT | [id number] | | [facility] | | | UNIT [...] + + + + | EXPIRATION | [id number] | | [facility] | | | DATE [...] + + + + | BLOOD | [id number] | | [facility] | | | PRODUCT [...] [facility] | [address] | [place] [address] | | | SERVICES, | [address] [...] + + + + | PRODUCT | [id number] | | [facility] | | | UNIT [...] + + + + | EXPIRATION | [id number] | | [facility] | | | DATE [...] + + + + | BLOOD | [id number] | | [facility] | | | PRODUCT [...] [facility] | [address] | [place] [address] | | | SERVICES, | [address] [...] + + + + | PRODUCT | [id number] | | [facility] | | | UNIT [...] + + + + | EXPIRATION | [id number] | | [facility] | | | DATE [...] + + + + | BLOOD | [id number] | | [facility] | | | PRODUCT [...] [facility] | [address] | [place] [address] | | | SERVICES, | [address] [...] + + + + | PRODUCT | [id number] | | [facility] | | | UNIT [...] + + + + | EXPIRATION | [id number] | | [facility] | | | DATE [...] + + + + | BLOOD | [id number] | | [facility] | | | PRODUCT [...] [facility] | [address] | [place] [address] | | | SERVICES, | [address] [...] + + + + | PRODUCT | [id number] | | [facility] | | | UNIT [...] + + + + | EXPIRATION | [id number] | | [facility] | | | DATE [...] + + + + | BLOOD | [id number] | | [facility] | | | PRODUCT [...] [facility] | [address] | [place] [address] | | | SERVICES, | [address] [...] + + + + | PRODUCT | [id number] | | [facility] | | | UNIT [...] + + + + | EXPIRATION | [id number] | | [facility] | | | DATE [...] + + + + | BLOOD | [id number] | | [facility] | | | PRODUCT [...] [facility] | [address] | [place] [address] | | | SERVICES, | [address] [...] + + + + | PRODUCT | [id number] | | [facility] | | | UNIT [...] + + + + | EXPIRATION | [id number] | | [facility] | | | DATE [...] + + + + | BLOOD | [id number] | | [facility] | | | PRODUCT [...] + + | [facility] | [address] [facility] | [place] [address] | | | SERVICES, | [address] [...] + + + + | PRODUCT | [id number] | | [facility] | | | UNIT [...] + + + + | EXPIRATION | [id number] | | [facility] | | | DATE [...] + + + + | BLOOD | [id number] | | [facility] | | | PRODUCT [...] | + + + + + | [facility] | [address] | [place] [address] | | | SERVICES, | [address] [...] + + + + | PRODUCT | [id number] | | [facility] | | | UNIT [...] + + + + | EXPIRATION | [id number] | | [facility] | | | DATE [...] + + + + | BLOOD | [id number] | | [facility] | | | PRODUCT [...] | + + + + + | [facility] | [address] [facility] | [place] [address] | | | SERVICES, | [address] [...] + + + + | PRODUCT | [id number] | | [facility] | | | UNIT [...] + + + + | EXPIRATION | [id number] | | [facility] | | | DATE [...] + + + + | BLOOD | [id number] | | [facility] | | | PRODUCT [...] | + + + + + | [facility] | [address] | [place] [address] | | | SERVICES, | [address] [...] + + + + | PRODUCT | [id number] | | [facility] | | | UNIT [...] + + + + | EXPIRATION | [id number] | | [facility] | | | DATE [...] + + + + | BLOOD | [id number] | | [facility] | | | PRODUCT [...] | + + + + + | [facility] | [address] | [place] [address] | | | SERVICES, | [address] [...] + + + + | PRODUCT | [id number] | | [facility] | | | UNIT [...] + + + + | EXPIRATION | [id number] | | [facility] | | | DATE [...] + + + + | BLOOD | [id number] | | [facility] | | | PRODUCT [...] + + + + | [facility] | [address] | [place] [address] | | | SERVICES, | [address] [...] + + + + | PRODUCT | [id number] | | [facility] | | | UNIT [...] + + + + | EXPIRATION | [id number] | | [facility] | | | DATE [...] + + + + | BLOOD | [id number] | | [facility] | | | PRODUCT [...] [facility] | [address] | [place] [address] | | | SERVICES, | [address] [...] + + + + | PRODUCT | [id number] | | [facility] | | | UNIT [...] + + + + | EXPIRATION | [id number] | | [facility] | | | DATE [...] + + + + | BLOOD | [id number] | | [facility] | | | PRODUCT [...] [facility] | [address] | [place] [address] | | | SERVICES, | [address] [...] + + + + | PRODUCT | [id number] | | [facility] | | | UNIT [...] + + + + | EXPIRATION | [id number] | | [facility] | | | DATE [...] + + + + | BLOOD | [id number] | | [facility] | | | PRODUCT [...] [facility] | [address] | [place] [address] | | | SERVICES, | [address] [...] + + + + | PRODUCT | [id number] | | [facility] | | | UNIT [...] + + + + | EXPIRATION | [id number] | | [facility] | | | DATE [...] + + + + | BLOOD | [id number] | | [facility] | | | PRODUCT [...] [facility] | [address] | [place] [address] | | | SERVICES, | [address] [...] + + + + | PRODUCT | [id number] | | [facility] | | | UNIT [...] + + + + | EXPIRATION | [id number] | | [facility] | | | DATE [...] + + + + | BLOOD | [id number] | | [facility] | | | PRODUCT [...] [facility] | [address] | [place] [address] | | | SERVICES, | [address] [...] [facility] | [address] | [place] [address] | | | SERVICES, CORE | [address] [...] | | | LABORATORY | | | ARMENIAN | | | SERVICES, | | | [...] | + + + + + | [facility] | [address] | [place] [address] | | | NATALEE WORTHINGTON | VILMA [...] [facility] | [address] | [place] [address] | | | NATALEE WORTHINGTON | VILMA [...] [facility] | [address] | [place], [place] | | | GLORIA GENAO OF [facility] | [address] | [address] | | | TESTS | | | [...] Note | + + | Service Account, OnAir Player In Interface - 09/02/2017 1:23 PM PDT [...] Note | + + | Service Account, MyWave Res In Interface - 09/01/2017 1:40 PM [...] + +---------+ + + | [facility] | | | | | [...] + + + + | PRODUCT | [id number] | | [facility] | | | UNIT [...] + + + + | EXPIRATION | [id number] | | [facility] | | | DATE [...] + + + + | BLOOD | [id number] | | [facility] | | | PRODUCT [...] [facility] | [address] | [place] [address] | | | SERVICES, | [address] [...] + + + + | PRODUCT | [id number] | | [facility] | | | UNIT [...] + + + + | EXPIRATION | [id number] | | [facility] | | | DATE [...] + + + + | BLOOD | [id number] | | [facility] | | | PRODUCT [...] [facility] | [address] | [place] [address] | | | SERVICES, | [...] + + + + | PRODUCT | [id number] | | [facility] | | | UNIT [...] + + + + | EXPIRATION | [id number] | | [facility] | | | DATE [...] + + + + | BLOOD | [id number] | | [facility] | | | PRODUCT [...] [facility] | [address] | [place] [address] | | | SERVICES, | [address] [...] + + + + | PRODUCT | [id number] | | [facility] | | | UNIT [...] + + + + | EXPIRATION | [id number] | | [facility] | | | DATE [...] + + + + | BLOOD | [id number] | | [facility] | | | PRODUCT [...] [facility] | [address] | [place] [address] | | | SERVICES, | [address] [...] + + + + | PRODUCT | [id number] | | [facility] | | | UNIT [...] + + + + | EXPIRATION | [id number] | | [facility] | | | DATE [...] + + + + | BLOOD | [id number] | | [facility] | | | PRODUCT [...] [facility] | [address] | [place] [address] | | | SERVICES, | [address] [...] + + + + | PRODUCT | [id number] | | [facility] | | | UNIT [...] + + + + | EXPIRATION | [id number] | | [facility] | | | DATE [...] + + + + | BLOOD | [id number] | | [facility] | | | PRODUCT [...] [facility] | [address] | [place] [address] | | | SERVICES, | [address] [...] + + + + | PRODUCT | [id number] | | [facility] | | | UNIT [...] + + + + | EXPIRATION | [id number] | | [facility] | | | DATE [...] + + + + | BLOOD | [id number] | | [facility] | | | PRODUCT [...] [facility] | [address] | [place] [address] | | | SERVICES, | [address] [...] + + + + | PRODUCT | [id number] | | [facility] | | | UNIT [...] + + + + | EXPIRATION | [id number] | | [facility] | | | DATE [...] + + + + | BLOOD | [id number] | | [facility] | | | PRODUCT [...] | + + + + + | [facility] | [address] | [place] [address] | | | SERVICES, | [address] [...] Note | + + | Service Account, [employer] Res In Interface - 09/01/2017 9:01 AM [...] + + + + | PRODUCT | [id number] | | [facility] | | | UNIT [...] + + + + | EXPIRATION | [id number] | | [facility] | | | DATE [...] + + + + | BLOOD | [id number] | | [facility] | | | PRODUCT [...] [facility] | [address] | [place] [address] | | | SERVICES, | [address] [...] [facility] | [address] | [place] [address] | | | NATALEE WORTHINGTON | [address] [...] | + + + + + | [facility] | [address] | [place] [address] | | | SERVICES, CORE | [address] [...] Discussed with | | | trauma ICU statistics intern by Dr. Yang at 4:38 AM. I have | | | personally reviewed the images and, if necessary, edited the report. | | | I agree with the report as now presented. | | + + + + + | Procedure Note | + + | Service Account, [employer] Res In Interface - 09/01/2017 10:10 AM [...] interspinous ligament is injured.Discussed with trauma ICU statistics intern | | by Dr. Yang at 4:38 AM.I have personally reviewed the images and, if necessary, | | edited the report. I agree with the report as now presented. | |3. Extensive soft tissue edema extending into the cervical and upper thoracic interspinous space, suggestive of interspinous ligament is injured. | | | |Discussed with trauma ICU statistics intern by Dr. Yang at 4:38 AM. [...] | | | LABORATORY | | | [facility] | | | SERVICES, | | | [...] | + + + + + | [facility] | [address] | [place] [address] | | | SERVICES, CORE | [address] [...] [facility] | [address] | [place] [address] | | | SERVICES, CORE | PARK [...] [facility] | [address] | [place] [address] | | | SERVICES, CORE | PARK [...] + + + + | [facility] | [address] [facility] | [place] [address] | | | NATALEE WORTHINGTON | [address] [...] pleural spaced was performed. A 32 size [place] chest tube was | | | placed [...] | ventricles. Discussed with the trauma ICU statistics intern at 12:12 AM by | | [...] ventricles.Discussed with | | the trauma ICU statistics intern at 12:[address] Yang.I [...] | | |Discussed with the trauma ICU statistics intern at 12:[address] Yang. [...] + + + | [facility] | [address] | [place], [place] | | | [place] [facility] | [address] | [address] | | | TESTS | | | [...] [facility] | [address] | [place] [address] | | | SERVICES, CORE | PARK [...] + + | [facility] | [address] [facility] | [place] [address] | | | SERVICES, CORE | [address] | | | + + [...] + +---------+ + + | [facility] RADIOLOGY | | | | | [...] Performing | Address | City[facility] | Phone Number | | Organization | [...] + + + + | [facility] | [address] | [place] [address] | | | [facility] | [address] | | | + + + + + X-RAY PORTABLE CHEST 1 VIEW (08/31/2017 7:07 PM PDT) + + | Specimen | + + | | + + + + + | Narrative | Performed At | + + + | STUDY: NV CHEST 1 VIEW HISTORY: Trauma COMPARISON: CT CAP | [facility] | | 08/31/2017 FINDINGS: Endotracheal tube with [...] + + + + | [facility] | [address] | [place] [address] | | | SERVICES, CORE | [address] [...] Note | + + | Service Account, [employer] Player In Interface - 08/31/2017 8:22 PM PDT [...] rib, nondisplaced-Left | | 1st rib fracture, zqoibxlhffxf-Yvd-jiiyfdgjx left lateral 8th rib fracture-T12 fracture | [...] [facility] | [address] | [place] [address] | | | SERVICES, | [address] [...] [facility] | [address] | [place] [address] | | | SERVICES, | [address] [...] [facility] | [address] | [place] [address] | | | SERVICES, | [address] [...] [facility] | [address] | [place], [place] | | | GLORIA GENAO OF CARE | [facility] | [address] | | | TESTS | | | [...] + + + | [facility] | [address] | [place], [place] | | | GLORIA GENAO OF GM | [facility] | [address] | | | TESTS | | | [...] [facility] | [address] | [place], [place] | | | GLORIA GENAO OF CARE | [address] | [address] | | | TESTS | | | [...] - [facility] | [address] | [place], [place] | | | [facility] | [address] | [address] | | | TESTS | | | [...] + + + + | PRODUCT | [id number] | | [facility] | | | UNIT [...] + + + + | EXPIRATION | [id number] | | [facility] | | | DATE [...] + + + + | BLOOD | [id number] | | [facility] | | | PRODUCT [...] [facility] | [address] | [place] [address] | | | SERVICES, | [address] [...] + + + + | PRODUCT | [id number] | | [facility] | | | UNIT [...] + + + + | EXPIRATION | [id number] | | [facility] | | | DATE [...] + + + + | BLOOD | [id number] | | [facility] | | | PRODUCT [...] + + + + | [facility] | [address] | [place] [address] | | | SERVICES, | [address] [...] + + + + | PRODUCT | [id number] | | [facility] | | | UNIT [...] + + + + | EXPIRATION | [id number] | | [facility] | | | DATE [...] + + + + | BLOOD | [id number] | | [facility] | | | PRODUCT [...] | + + + + + | [facility] | [address] | [place] [address] | | | SERVICES, | [address] [...] + + + + | PRODUCT | [id number] | | [facility] | | | UNIT [...] + + + + | EXPIRATION | [id number] | | [facility] | | | DATE [...] + + + + | BLOOD | [id number] | | [facility] | | | PRODUCT [...] | + + + + + | [facility] | [address] | [place] [address] | | | SERVICES, | [address] [...] + + + + | PRODUCT | [id number] | | [facility] | | | UNIT [...] + + + + | EXPIRATION | [id number] | | [facility] | | | DATE [...] + + + + | BLOOD | [id number] | | [facility] | | | PRODUCT [...] | + + + + + | [facility] | [address] | [place] [address] | | | SERVICES, | [address] [...] + + + + | PRODUCT | [id number] | | [facility] | | | UNIT [...] + + + + | EXPIRATION | [id number] | | [facility] | | | DATE [...] + + + + | BLOOD | [id number] | | [facility] | | | PRODUCT [...] | + + + + + | [facility] | [address] | [place] [address] | | | SERVICES, | [address] [...] + + + + | PRODUCT | [id number] | | [facility] | | | UNIT [...] + + + + | EXPIRATION | [id number] | | [facility] | | | DATE [...] + + + + | BLOOD | [id number] | | [facility] | | | PRODUCT [...] + + + + | [facility] | [address] | [place] [address] | | | SERVICES, | [address] [...] + + + + | PRODUCT | [id number] | | [facility] | | | UNIT [...] + + + + | EXPIRATION | [id number] | | [facility] | | | DATE [...] + + + + | BLOOD | [id number] | | [facility] | | | PRODUCT [...] [facility] | [address] | [place] [address] | | | SERVICES, | [address] [...] | + + + + + | [facility] | [address] [facility] | [place] [address] | | | SERVICES, CORE | [address] [...] | | | LABORATORY | | | [facility] | | | SERVICES, | | | [...] + + + + | [facility] | [address] | [place] [address] | | | SERVICES, CORE | [address] [...] valves (2.5 - 3.5) INR APTT | [facility], CORE | | Therapeutic Range: (75 - 120) sec | | | Heparin levels of 0.35 - 0.7 U/mL | | + + + + + + + + | Performing | Address | City/State/Zipcode | Phone Number | | Organization | | | | + + + + + | [facility] | [address] | [place] [address] | | | SERVICES, CORE | [address] [...] [facility] | [address] | [place] [address] | | | SERVICES, CORE | P[address] [...] | + + + + + | [facility] | [address] | [place] [address] | | | SERVICES, CORE | [address] [...] | + + + + + | [facility] | [address] | [place] [address] | | | SERVICES, CORE | [...] | | | | modification) on [facility] 11/07/17 at | | | | [...]
--- OUTSIDE RECORDS SUMMARY | 2019-04-04 14:32 | XMS ---
PreManage Notification: ARTEMIO GREEN [employer] Person Events No recent Security Events currently on file CRITERIA MET - Group Notification - 6 ED Visits in 6 Months - [facility] CARE PROVIDERS EMERY FELIPE Physician Top And Seat Cover Fitter: Surgical 12/27/2017-Current PHONE: Unknown Name Unknown Clinic/Center 01/28/2019-Current PHONE: [phone] [facility] Current PHONE: [phone] [facility] Chapin [facility] Current Medical PHONE: Unknown Guidelines Source: [facility] Guidelines Date: 01/07/2018 Care Coordination: IF PATIENT RETURNS TO ED WITH SAFETY CONCERN :\T\nbsp; CALL AND REPORT TO [facility] ADULT PROT[facility] AT [phone]. Care History Behavioral 12/25/2017 [facility] PATIENT HAS TBI HISTORY.\T\nbsp; DOES NOT SLEEP WELL.\T\nbsp; PATIENT VERY RESTLESS.\T\nbsp; PATIENT IS PRONE TO WANDER AWAY .\T\nbsp; Medical/Surgical 02/02/2019 [facility] - PATIENT ESTABLISHED CARE WITH NEW PCP DR DE SOUZA AT [facility] ON 01/30/19. - PATIENT HAS REFERRALS FOR A\T\amp;D SERVICES AND MENTAL HEALTH SERVICES - VALERIE BATES- - WHEELCHAIR AND WALKER ORDERS PLACED- - PODIATRY CONSULT PLACED 01/13/2019 [facility] - PLEASE DO NOT PROVIDE FOOD TO PATIENT-UNLESS MEDICALLY NECESSARY PROVIDER DISCRETION 04/01/2018 [facility] - PATIENT WAS LAST SEEN [...] UP APT. 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 E.D. VISIT COUNT (12 MO.) 3 [facility] 1 [facility] H. 15 [facility] 4 [facility] 12 SHELLY Giordano TOTAL 35 NOTE: Visits indicate total known visits. ED/UCC VISIT TRACKING (12 MO.) 04/04/2019 14:30 [facility] [place] TYPE: Emergency COMPLAINT: - ALTERED LOC [facility]2019 [facility] COMPLAINT: - PAIN TESTICLE 01/29/2019 08:21 [place] TYPE: Emergency COMPLAINT: - VOMITING BLOOD DIAGNOSES: - Pneumonitis due to inhalation of other solids and liquids - Other correction (current) drug therapy - Nicotine dependence, unspecified, uncomplicated - Poisn by oth prim systemic and hematolog agents, acc, init - Cough 01/27/2019 15:18 [place] TYPE: Emergency COMPLAINT: - POSS SEIZURE DIAGNOSES: - Pneumonia, unspecified organism - Unspecified convulsions - Prsnl hx of TIA (TIA), and cereb infrc w/o resid deficits - Nicotine dependence, unspecified, uncomplicated 01/10/2019 17:14 [place] TYPE: Emergency COMPLAINT: - MULTIPLE COMPLAINTS DIAGNOSES: - Nicotine dependence, unspecified, uncomplicated - Unspecified convulsions - Epilepsy, unsp, not intractable, without status epilepticus - Prsnl hx of TIA (TIA), and cereb infrc w/o resid deficits - Alcohol abuse with intoxication, unspecified 01/10/2019 01:15 [facility] [place] TYPE: Emergency COMPLAINT: - SEIZURES DIAGNOSES: - Unspecified convulsions - Nicotine dependence, unspecified, uncomplicated - Alcohol abuse with intoxication, unspecified - Prsnl hx of TIA (TIA), and cereb infrc w/o resid deficits 12/21/2018 18:19 [facility] [place] TYPE: Emergency COMPLAINT: - CAST REMOVAL DIAGNOSES: - Prsnl hx of TIA (TIA), and cereb infrc w/o resid deficits - Unsp fx the low end left rad, subs for clos fx w routn heal - Other correction (current) drug therapy - Nicotine dependence, unspecified, uncomplicated - Unsp fx lower end of l ulna, subs for clos fx w routn heal - Pain in left arm 12/20/2018 14:02 [facility] TYPE: Emergency COMPLAINT: - ETOH 11/25/2018 18:01 Donte Slade [facility] TYPE: Emergency COMPLAINT: - Ambulance 11/23/2018 21:23 [facility] 11/19/2018 19:50 [facility]: Emergency COMPLAINT: - seizure 11/10/2018 07:44 [facility]: Emergency COMPLAINT: - HIP PAIN 11/03/2018 16:37 [facility]: Emergency COMPLAINT: - back pain 10/31/2018 11:50 [facility]: Emergency COMPLAINT: - hip 10/28/2018 12:54 [facility] TYPE: Emergency COMPLAINT: - possible seizure 10/25/2018 11:21 [facility] TYPE: Emergency COMPLAINT: - medical complaint 10/17/2018 15:46 [facility] TYPE: Emergency COMPLAINT: - ETOH 10/16/2018 03:29 [facility]: Emergency COMPLAINT: - possible sizure 10/14/2018 05:43 [facility] TYPE: Emergency 10/11/2018 19:37 [facility] [place] TYPE: Emergency COMPLAINT: - intoxication Plus 15 More Visits INPATIENT VISIT TRACKING (12 MO.) No inpatient visits to display in this time frame [email or web address]
== END 2019-04-04 16:23 | disposition home or self-care (01) ==
LOC: ED 14:30
DX: B34.9 Viral infection, unspecified (principal); F17.200 Nicotine dependence, unspecified, uncomplicated; Z79.899 Other long term (current) drug therapy
CPT/HCPCS: 71046; 87081; 87880; 99284-25

== ENCOUNTER 2019-08-22 07:17 | Inpatient (IN) | payer OTHER ==
[~2019-08-22] VITALS: Ht 165.1 cm; Wt 67.6 kg
--- OUTSIDE RECORDS SUMMARY | ~2019-08-22 | XMS | Encounter Summary ---
Demographics + + + | Address | [address] | | | [place] [address] | + + + | Home Phone | | + + + | Preferred Language | Unknown | + + + | Marital Status | Single | + + + | Scientologist Affiliation | PEN | + + + | Race | or | + + + | Ethnic Group | Not or | + + + Author + + + | Author | [facility] [employer] [facility] | + + + | Organization | [facility] [employer] [facility] | + + + | Address | Unknown | + + + | Phone | Unavailable | + + + Support + + +---------+ + | Name | Relationship | Address | Phone | + + +---------+ + | Kaylie Baig | ECON | Unknown | | + + +---------+ + Care Team Providers + +------+ + | Care Sound Effects Person Name | Role | Phone | + +------+ + | No Pcp Per Patient | PCP | Unavailable | + +------+ + Encounter Details +--------+ + + + + | Date | Type | Department | Care Team | Description | +--------+ + + + + | 10/10/ | Procedure | [address] | | | | 2018 | Pass | [address] | | | | | | [address] [facility] | | | | | | Hospital Admitting | | | | | | Desk Located on the | | | | | | 9th floor | | | | | | [place], [place] | | | | | | [address] | | | +--------+ + + + [...]
--- OUTSIDE RECORDS SUMMARY | ~2019-08-22 | XMS | Encounter Summary ---
Demographics + + + | Address | [address] | | | [place] [address] | + + + | Home Phone | | + + + | Preferred Language | Unknown | + + + | Marital Status | Single | + + + | Yazidism Affiliation | PEN | + + + | Race | or | + + + | Ethnic Group | Not or | + + + Author + + + | Author | [facility] | + + + | Organization | [facility] | + + + | Address | Unknown | + + + | Phone | Unavailable | + + + Support + + +---------+ + | Name | Relationship | Address | Phone | + + +---------+ + | Kaylie Baig | ECON | Unknown | | + + +---------+ + Care Team Providers + +------+ + | Care Financial Services Technician Name | Role | Phone | + +------+ + | No Pcp Per Patient | PCP | Unavailable | + +------+ + Encounter Details +--------+ + + + + | Date | Type | Department | Care Team | Description | +--------+ + + + + | 10/22/ | Procedure | Diagnostic Imaging | | | | 2017 | Pass | Services at [facility] | | | | | | [address] | | | | | | [place] | | | | | | [facility], [address] [place] [address] | | | | | | [place], [place] | | | | | | [address] | | | | | | [phone] | | | +--------+ + + + [...]
--- OUTSIDE RECORDS SUMMARY | ~2019-08-22 | XMS | Encounter Summary ---
Demographics + + + | Address | [address] | | | [place] [address] | + + + | Home Phone | | + + + | Preferred Language | Unknown | + + + | Marital Status | Single | + + + | Protestant Affiliation | PEN | + + + | Race | or | + + + | Ethnic Group | Not or | + + + Author + + + | Author | [facility] [employer] [facility] | + + + | Organization | [facility] [employer] [facility] | + + + | Address | Unknown | + + + | Phone | Unavailable | + + + Support + + +---------+ + | Name | Relationship | Address | Phone | + + +---------+ + | Kaylie Baig | ECON | Unknown | | + + +---------+ + Care Team Providers + +------+ + | Care Spread Cutter Name | Role | Phone | + +------+ + | No Pcp Per Patient | PCP | Unavailable | + +------+ + Encounter Details +--------+ + + + + | Date | Type | Department | Care Team | Description | +--------+ + + + + | 09/24/ | Procedure | Diagnostic Imaging | | | | 2017 | Pass | Services at [facility] | | | | | | [address] | | | | | | [place] | | | | | | [facility] | | | | | | [place], [place] | | | | | | [address] | | | | | | [phone] | | | +--------+ + + + [...]
--- OUTSIDE RECORDS SUMMARY | ~2019-08-22 | XMS | Encounter Summary ---
Demographics + + + | Address | [address] | | | [place] [address] | + + + | Home Phone | | + + + | Preferred Language | Unknown | + + + | Marital Status | Single | + + + | Anabaptism Affiliation | PEN | + + + | Race | or | + + + | Ethnic Group | Not or | + + + Author + + + | Author | [facility] [employer] [facility] | + + + | Organization | [facility] [employer] [facility] | + + + | Address | Unknown | + + + | Phone | Unavailable | + + + Support + + +---------+ + | Name | Relationship | Address | Phone | + + +---------+ + | Kaylie Baig | ECON | Unknown | | + + +---------+ + Care Team Providers + +------+ + | Care Copy Center Specialist Name | Role | Phone | + +------+ + | No Pcp Per Patient | PCP | Unavailable | + +------+ + Encounter Details +--------+ + + + + | Date | Type | Department | Care Team | Description | +--------+ + + + + | 09/05/ | Document-Sc | Health Information | Unknown . | | | 2018 | anned | Services [address] | | | | [address] | | | | | | Mailcode: [id number] | | | | | | [facility] | | | | | | [place], [place] | | | | | | [address] | | | | | | [phone] | | | +--------+ + + + [...]
--- OUTSIDE RECORDS SUMMARY | ~2019-08-22 | XMS | Encounter Summary ---
Demographics + + + | Address | [address] | | | [place] [address] | + + + | Home Phone | | + + + | Preferred Language | Unknown | + + + | Marital Status | Single | + + + | Catholic Affiliation | PEN | + + + | Race | or | + + + | Ethnic Group | Not or | + + + Author + + + | Author | [facility] [employer] [facility] | + + + | Organization | [facility] [employer] [facility] | + + + | Address | Unknown | + + + | Phone | Unavailable | + + + Support + + +---------+ + | Name | Relationship | Address | Phone | + + +---------+ + | Kaylie Baig | ECON | Unknown | | + + +---------+ + Care Team Providers + +------+ + | Care Rate Analyst Name | Role | Phone | + [...] | | | | | | Rd [facility] | | | | | | Hospital Admitting | | | | | | Desk Located on the | | | | | | 9th floor | | | | | | [place], [place] | | | | | | [address] | | | +--------+ + + + [...]
--- OUTSIDE RECORDS SUMMARY | ~2019-08-22 | XMS | Encounter Summary ---
Demographics + + + | Address | [address] | | | [place] [address] | + + + | Home Phone | | + + + | Preferred Language | Unknown | + + + | Marital Status | Single | + + + | Adventism Affiliation | PEN | + + + | Race | or | + + + | Ethnic Group | Not or | + + + Author + + + | Author | [facility] | + + + | Organization | [facility] | + + + | Address | Unknown | + + + | Phone | Unavailable | + + + Support + + +---------+ + | Name | Relationship | Address | Phone | + + +---------+ + | Kaylie Baig | ECON | Unknown | | + + +---------+ + Care Team Providers + +------+ + | Care General Sales Manager Name | Role | Phone | + [...] | +--------+ + + + + | 09/01/ | Anesthesia | [address] Op [address] | Loi Velasco, | | | 2018 | Event | [address] | [address] | | | | | [facility] | [address] | | | | | Hospital Admitting | [place], [place] | | | | | Desk Located on the | [address] | | | | | 9th floor | [phone] | | | | | [place], [place] | | | | | | [address] | Joslyn Boss, | | | | | | [address] | | | | | | [address] | | | | | | [place], [place] | | | | | | [address] | | | | | | [phone] | | | | | | | | +--------+ + + + + Anesthesia Record + + + + + | Procedure Name | Responsible | Anesthesia Start | Anesthesia Stop Time | | | Anesthesiologist | Time | | + + + + + | reboa replacement, | Loi Velasco MD | 09/01/17 1050 | 09/01/17 1445 | | pelvic angio, | | | | | exploratory | | | | | laparotomy, abthera | | | | | wound vac placement | | | | | (N/A Abdomen) [...] /0 | 0 | | | | 6/ | 3 | | | | 20 | 7 | | | | 18 | | | | +----+---+ + + | | 1 | Pt. Check | Prior to anesthesia start, pt. Identified, examined, chart | | | 0 | | reviewed, PARQ held, anesthetic plan made or approved by | | | 5 | | attending anesthesiologist. NPO status confirmed as appropriate | | | 0 | | for procedure Preoperative evaluation: unchanged | +----+---+ + + | | 1 | OR to | patient transported to ICU with continuos monitoring, intubated | | | 0 | ICU/Handoff | and ventilated, signout given to ICU team. C-collar in place | | | 5 | | | | | 0 | | | +----+---+ + + | | 1 | An Start | | | | 0 | | | | | 5 | | | | | 0 | | | +----+---+ + + | | 1 | Quick Note | Infusions left running - fentanyl 250 mcg/h and propofol | | | 0 | | 5/mcg/kg/min, NE 0.08 mgc/kg/min.Magnesium 4g 1unit of pRBC also | | | 5 | | running | | | 0 | | | +----+---+ + + | | 1 | An Start | | | | 0 | Data | | | | 5 | | | | | 5 | | | +----+---+ + + | | 1 | Quick Note | ETT in situ- hooked to anesthesia machine and resumed mechanical | | | 0 | | ventilation. Pt transferred to OR bed -c-collar in place, | | | 5 | | log-rolled onto backboard for transfer maintaining neutral spine | | | 5 | | alignment | +----+---+ + + | | 1 | Vitals | Monitors applied Vital signs checked Patient ready for anesthesia | | | 0 | Checked | | | | 5 | | | | | 6 | | | +----+---+ + + | | 1 | Art in-situ | | | | 0 | | | | | 5 | | | | | 6 | | | +----+---+ + + | | 1 | CVL in-situ | | | | 0 | | | | | 5 | | | | | 6 | | | +----+---+ + + | | 1 | Ready | | | | 1 | | | | | 0 | | | | | 0 | | | +----+---+ + + | | 1 | an lb now | | | | 1 | | | | | 0 | | | | | 3 | | | +----+---+ + + | | 1 | Abx | | | | 1 | Administere | | | | 0 | d | | | | 4 | | | +----+---+ + + | | 1 | Quick Note | OGT placed to intermittent suction. +return of brown gastric | | | 1 | | contents | | | 1 | | | | | 2 | | | +----+---+ + + | | 1 | Timeout | | | | 1 | | | | | 2 | | | | | 3 | | | +----+---+ + + | | 1 | Incision | | | | 1 | | | | | 2 | | | | | 5 | | | +----+---+ + + | | 1 | Quick Note | Surgeon notifying that they are getting ready to enter | | | 1 | | peritoneium. | | | 2 | | | | | 9 | | | +----+---+ + + | | 1 | Quick Note | End ex-lap with trauma surgery. Preparing for Vascular surgery | | | 2 | | portion | | | 4 | | | | | 0 | | | +----+---+ + + | | 1 | Quick Note | IR team now in OR. Will be doing next portion of case. | | | 2 | | | | | 5 | | | | | 6 | | | +----+---+ + + | | 1 | Quick Note | Pause | | | 3 | | | | | 0 | | | | | 4 | | | +----+---+ + + | | 1 | Quick Note | Start of Angiography | | | 3 | | | | | 0 | | | | | 5 | | | +----+---+ + + | | 1 | Surgery end | | | | 4 | | | | | 1 | | | | | 2 | | | +----+---+ + + | | 1 | an stop | | | | 4 | data | | | | 2 | | | | | 8 | | | +----+---+ + + | | 1 | ICU to OR | signout received from ICU team, patient transported to OR with | | | 4 | | continous monitoring, intubated and ventilated | | | 2 | | | | | 8 | | | +----+---+ + + | | 1 | ICU Handoff | Report at bedside | | | 4 | Call | | | | 4 | | | | | 4 | | | +----+---+ + + | | 1 | Anesthesia | | | | 4 | End | | | | 4 | | | | | 5 | | | +----+---+ + + +------+ | Meds | +------+ + + + | Name | Total | + + + | rocuronium | 180 mg | + + + | ceFAZolin | 2,000 mg | + + + | norepinephrine INF (8mg/250mL) | 693.09 mcg | + + + | calcium gluconate | 4,000 mg | + + + | propofol (DIPRIVAN) injection | 239,827.5 mcg | + + + | fentaNYL (SUBLIMAZE) 2500 mcg/250 | 695.83 mcg | | mL (10 mcg/mL) IV infusion (RTU) | | + + + | fentaNYL | 150 mcg | + + + | KCl 10mEq/100mL | 20 mEq | + + + | PHENYLEPHrine | 1,000 mcg | + + + | LR | 3,000 mL | + + + | NS | 500 mL | + + + [...] + + + | Periph | 08/31/17; Other hospital; Right; | 08/31/17 0000 by | 09/05/171717 by | | eral | Hand; 18 g; 09/05/171717; Per | Guera Gresham RN | Barbie Yu RN | | IV | protocol | | | +--------+ + + + | Periph | 08/31/17; Other hospital; Right; | 08/31/17 0000 by | 09/05/171717 by | | eral | Hand; 20 g; 09/05/17; 1717; Per | Guera Gresham RN | Barbie [...] | 08/31/17; 1736; trauma team; | 08/31/17 173 by | 09/05/17 1718 by | | al | Right; Radial; 20g; 09/05/17; | Guera Gresham RN | Barbie Yu RN | | Line | 1718; Per order | | | +--------+ + + + | Sheath | 08/31/17; 1745; Left; Groin; | 08/31/17 1745 by | 09/05/17 1717 by | | [...] + + + | Periph | 08/31/17; 175; Right; | 08/31/171758 by | 09/01/17 1100 by | | eral | Antecubital; 20 g; 09/01/17; | Guera Gresham RN | Sherrell Geiger RN | | IV | 1100; Site problems | | | +--------+ + + + | Naso/O | 08/31/17; 1900; Oral; Tape; | 08/31/17 190 by | 09/03/17 0102 by | | ro | 09/03/17; 010; Catheter damage | Cristina | Cristina | [...] | 09/07/17 1214 by | | joshua | Cabrera; 16 Fr.; 10 mL; 09/07/17; | Cristina | Barbie Yu RN | | Cale | 1214; Per rochelle | SCOTT Villegas | | | er [...] in this encounter Administered Medications + +--------+ +--------+------+------+ | Medication Order | MAR | Action | Dose | Rate | Site | | | Action | Date | | | | + +--------+ +--------+------+------+ | calcium gluconate 10 % (100 | Given | 09/02/19 | 500 mg | | | | mg/mL) injection intravenous, | | 18 1:05 | | | | | INTRAPROCEDURE PRN, Starting Sun | | PM PDT | | | | | 09/01/17 at 1115, Until 09/01/17 | | | | | | | at 1428 | | | | | | + +--------+ +--------+------+------+ +-------+ + +---+---+ | Given | 09/02/19 | 500 mg | | | | | 18 12:32 | | | | | | PM PDT | | | | +-------+ + +---+---+ | Given | 09/02/19 | 1,000 mg | | | | | 18 12:25 | | | | | | PM PDT | | | | +-------+ + +---+---+ +---+---+ | | | +---+---+ + +-------+ + +---+---+ | ceFAZolin (ANCEF) injection | Given | 09/02/19 | 2,000 mg | | | | intravenous, INTRAPROCEDURE PRN, | | 18 11:04 | | | | | Starting 09/01/17 at 1104, | | AM PDT | | | | | Until 09/01/17 at 1428 | | | | | | + +-------+ + +---+---+ +---+---+ | | | +---+---+ + + + +--------+ +---+ | fentaNYL (SUBLIMAZE) 2500 | Rate/Dos | 09/05/19 | 150 | 15 mL/hr | | | mcg/250 mL (10 mcg/mL) IV | e Verify | 18 9:00 | mcg/hr | | | | infusion (RTU) 12.5-250 mcg/hr | | AM PDT | | | | | (1.25-25 mL/hr), intravenous, | | | | | | | CONTINUOUS, Starting 08/31/17 | | | | | | | at 1930, Until 09/04/17 at 1011 | | | | | | + + + +--------+ +---+ + + +--------+ +---+ | Rate/Dose Verify | 09/05/19 | 150 | 15 mL/hr | | | | 18 8:00 | mcg/hr | | | | | AM PDT | | | | + + +--------+ +---+ | Rate/Dose Verify | 09/05/19 | 150 | 15 mL/hr | | | | 18 7:00 | mcg/hr | | | | | AM PDT | | | | + + +--------+ +---+ +---+---+ | | | +---+---+ + +-------+ +--------+---+---+ | fentaNYL citrate (PF) | Given | 09/02/19 | 50 mcg | | | | (SUBLIMAZE) injection | | 18 12:34 | | | | | INTRAPROCEDURE PRN, Starting Sun | | PM PDT | | | | | 09/01/17 at 1131, Until 09/01/17 | | | | | | | at 1428 | | | | | | + +-------+ +--------+---+---+ +-------+ +--------+---+---+ | Given | 09/02/19 | 50 mcg | | | | | 18 11:33 | | | | | | AM PDT | | | | +-------+ +--------+---+---+ | Given | 09/02/19 | 50 mcg | | | | | 18 11:31 | | | | | | AM PDT | | | | +-------+ +--------+---+---+ +---+---+ | | | +---+---+ + + + +---+---+---+ | lactated Ringers IV | given by | 09/02/19 | | | | | intravenous, INTRAPROCEDURE | | 18 2:09 | | | | | CONTINUOUS PRN, Starting Sun | anesthes | PM PDT | | | | | 09/01/17 at 1050, Until 09/01/17 | iology | | | | | | at 1428 | | | | | | + + + +---+---+---+ + + +---+---+---+ | given by anesthesiology | 09/02/19 | | | | | | 18 2:07 | | | | | | PM PDT | | | | + + +---+---+---+ | given by anesthesiology | 09/02/19 | | | | | | 18 1:32 | | | | | | PM PDT | | | | + + +---+---+---+ +---+---+ | | | +---+---+ + + + + +-------+---+ | norepinephrine (LEVOPHED) | Rate/Dos | 09/02/19 | 0.06 | 8.61 | | | 8mg/250 mL (0.032 mg/mL) IV | e Change | 18 1:08 | mcg/kg/m | mL/hr | | | infusion (RTU) INTRAPROCEDURE | | PM PDT | in | | | | CONTINUOUS PRN, Starting Sun | | | | | | | 09/01/17 at 1103, Until 09/01/17 | | | | | | | at 1428 | | | | | | + + + + +-------+---+ + + + +-------+---+ | Rate/Dose Change | 09/02/19 | 0.04 | 5.74 | | | | 18 12:47 | mcg/kg/m | mL/hr | | | | PM PDT | in | | | + + + +-------+---+ | Restarted | 09/02/19 | 0.02 | 2.87 | | | | 18 12:38 | mcg/kg/m | mL/hr | | | | PM PDT | in | | | + + + +-------+---+ +---+---+ | | | +---+---+ + +-------+ +---------+---+---+ | PHENYLEPHrine 100 mcg/mL IV | Given | 09/02/19 | 200 mcg | | | | syringe INTRAPROCEDURE PRN, | | 18 1:32 | | | | | Starting 09/01/17 at 1240, | | PM PDT | | | | | Until 09/01/17 at 1428 | | | | | | + +-------+ +---------+---+---+ +-------+ +---------+---+---+ | Given | 09/02/19 | 200 mcg | | | | | 18 1:15 | | | | | | PM PDT | | | | +-------+ +---------+---+---+ | Given | 09/02/19 | 200 mcg | | | | | 18 1:08 | | | | | | PM PDT | | | | +-------+ +---------+---+---+ +---+---+ | | | +---+---+ + +-------+ +--------+---+---+ | potassium chloride in water IV | Given | 09/02/19 | 10 mEq | | | | intravenous, INTRAPROCEDURE PRN, | | 18 1:23 | | | | | Starting 09/01/17 at 1230, | | PM PDT | | | | | Until 09/01/17 at 1428 | | | | | | + +-------+ +--------+---+---+ +-------+ +--------+---+---+ | Given | 09/02/19 | 10 mEq | | | | | 18 12:30 | | | | | | PM PDT | | | | +-------+ +--------+---+---+ +---+---+ | | | +---+---+ + + + + +-------+---+ | propofol (DIPRIVAN) injection | Restarte | 09/05/19 | 5 | 2.3 | | | 0.5-50 mcg/kg/min | d | 18 8:21 | mcg/kg/m | mL/hr | | | 76.5 kg Dosing weight | | AM PDT | in | | | | (0.2295-22.95 mL/hr, rounded to | | | | | | | 0.23-22.95 mL/hr), intravenous, | | | | | | | CONTINUOUS, Starting 08/31/17 | | | | | | | at 1930, Until Sat09/04/17 at 1011 | | | | | | + + + + +-------+---+ + + + +-------+---+ | Rate/Dose Verify | 09/05/19 | 15 | 6.89 | | | | 18 7:00 | mcg/kg/m | mL/hr | | | | AM PDT | in | | | + + + +-------+---+ | Rate/Dose Verify | 09/05/19 | 15 | 6.89 | | | | 18 6:00 | mcg/kg/m | mL/hr | | | | AM PDT | in | | | + + + +-------+---+ +---+---+ | | | +---+---+ + +-------+ +-------+---+---+ | rocuronium (ZEMURON) injection | Given | 09/02/19 | 20 mg | | | | intravenous, INTRAPROCEDURE PRN, | | 18 1:59 | | | | | Starting 09/01/17 at 1050, | | PM PDT | | | | | Until 09/01/17 at 1428 | | | | | | + +-------+ +-------+---+---+ +-------+ +-------+---+---+ | Given | 09/02/19 | 20 mg | | | | | 18 12:51 | | | | | | PM PDT | | | | +-------+ +-------+---+---+ | Given | 09/02/19 | 40 mg | | | | | 18 11:32 | | | | | | AM PDT | | | | +-------+ +-------+---+---+ +---+---+ | | | +---+---+ + +---------+ +---+---+---+ | sodium chloride 0.9% IV | New Bag | 09/02/19 | | | | | infusion INTRAPROCEDURE | | 18 10:50 | | | | | CONTINUOUS PRN, Starting Sun | | AM PDT | | | | | 09/01/17 at 1050, Until 09/01/17 | | | | | | | at 1428 | | | | | | + +---------+ +---+---+---+ +---+---+ | | | +---+---+ documented in this encounter"
--- OUTSIDE RECORDS SUMMARY | ~2019-08-22 | XMS | Encounter Summary ---
Demographics + + + | Address | [address] | | | [place] [address] | + + + | Home Phone | | + + + | Preferred Language | Unknown | + + + | Marital Status | Single | + + + | Anabaptist Affiliation | PEN | + + + | Race | or | + + + | Ethnic Group | Not or | + + + Author + + + | Author | [facility] | + + + | Organization | [facility] [facility] | + [...] Team Providers + +------+ + | Care Rescue Worker Name | Role | Phone | [...] | 2018 | Pass | Services at [facility] | | | | | | [address] | | | | | | [place] | | | | | | [facility] | | | | | | [place], [place] | | | | | | [address] | | | | | | [phone] | | | +--------+ + + + [...]
--- OUTSIDE RECORDS SUMMARY | ~2019-08-22 | XMS | Encounter Summary ---
Demographics + + + | Address | [address] | | | [place] [address] | + + + | Home Phone | | + + + | Preferred Language | Unknown | + + + | Marital Status | Single | + + + | Hoahaoism Affiliation | PEN | + + + | Race | or | + + + | Ethnic Group | Not or | + + + Author + + + | Author | [facility] | + + + | Organization | [facility] [employer] [facility] | + + + | Address | Unknown | + + + | Phone | Unavailable | + + + Support + + +---------+ + | Name | Relationship | Address | Phone | + + +---------+ + | Kaylie Baig | ECON | Unknown | | + + +---------+ + Care Team Providers + +------+ + | Care Active Directory Specialist Name | Role | Phone | [...] | | | | | Rd [facility] | | | | | | Hospital Admitting | | | | | | Desk Located on the | | | | | | 9th floor | | | | | | [place], [place] | | | | | | [address] | | | +--------+ + + + [...]
--- OUTSIDE RECORDS SUMMARY | ~2019-08-22 | XMS | Encounter Summary ---
Demographics + + + | Address | [address] | | | [place] [address] | + + + | Home Phone | | + + + | Preferred Language | Unknown | + + + | Marital Status | Single | + + + | Buddhism Affiliation | PEN | + + + | Race | or | + + + | Ethnic Group | Not or | + + + Author + + + | Author | [facility] | + + + | Organization | [facility] [employer] [facility] | + + + | Address | Unknown | + + + | Phone | Unavailable | + + + Support + + +---------+ + | Name | Relationship | Address | Phone | + + +---------+ + | Kaylie Baig | ECON | Unknown | | + + +---------+ + Care Team Providers + +------+ + | Care Field Producer Name | Role | Phone | + [...] [address] | | | | | [facility] | [address] | | | | | Hospital Admitting | [place], [place] | | | | | Desk Located on the | [address] | | | | | 9th floor | [phone] | | | | | [place], [place] | | | | | | [address] | Mariann Victor CRNA | | | | | | [address] | | | | | | [address] | | | | | | [place], [place] | | | | | | [address] | | | | | | [phone] | | | | | | | [...] | | | | Lumen | Yes; [id number]; 11/09/17; 1154; | | | | | [...] + + documented in this encounter Results WALDO ETT (11/05/2017 4:31 PM PDT) + + [...] | | | | | PRN, Starting Sat11/05/17 at | | PM PDT | | | | | 1550, Until Sat11/05/17 at 1905 | | | | | | + +-------+ +-------+---+---+ +---+---+ | | | +---+---+ + +-------+ +------+---+---+ | midazolam (VERSED) injection | Given | 11/06/19 | 2 mg | | | | INTRAPROCEDURE PRN, Starting Tue | | 18 3:37 | | | [...]
--- OUTSIDE RECORDS SUMMARY | ~2019-08-22 | XMS | Encounter Summary ---
Demographics + + + | Address | [address] | | | [place] [address] | + + + | Home Phone [...] + + | Author | [facility] | + + + | Organization | [facility] [employer] [facility] | + + + | Address | Unknown | + + + | Phone | Unavailable | + + + Support + + +---------+ + | Name | Relationship | Address | Phone | + + +---------+ + | Kaylie Baig | ECON | Unknown | | + + +---------+ + Care Team Providers + +------+ + | Care Weatherization Coordinator Name | Role | Phone | + [...] [address] | | | | | [facility] | [address] | | | | | Hospital Admitting | [place], [place] | | | | | Desk Located on the | [address] | | | | | 9th floor | [phone] | | | | | [place], [place] | | | | | | [address] | [address], | | | | | | [facility] [address] | | | | | | [address] | | | | | | [place], [place] | | | | | | [address] | | | | | | [phone] | | | | | | | [...] centrally accessed); | | | | | [id number]; 10/22/17; 1542; | | | | | [...] 10:28 | | | | | Starting Sho 10/10/17 at 1028, | | AM PDT [...] INTRAPROCEDURE PRN, Starting Sho | | 18 8:34 | | | [...]
--- OUTSIDE RECORDS SUMMARY | ~2019-08-22 | XMS | Encounter Summary ---
Demographics + + + | Address | [address] | | | [place] [address] | + + + | Home Phone | | + + + | Preferred Language | Unknown | + + + | Marital Status | Single | + + + | Orthodox Affiliation | PEN | + + + | Race | or | + + + | Ethnic Group | Not or | + + + Author + + + | Author | [facility] | + + + | Organization | [facility] | + + + | Address | Unknown | + + + | Phone | Unavailable | + + + Support + + +---------+ + | Name | Relationship | Address | Phone | + + +---------+ + | Kaylie Baig | ECON | Unknown | | + + +---------+ + Care Team Providers + +------+ + | Care Roadability Machine Operator Name | Role | Phone [...] | | | | | Rd [facility] | | | | | | Hospital Admitting | | | | | | Desk Located on the | | | | | | 9th floor | | | | | | [place], [place] | | | | | | [address] | | | +--------+ + + + [...]
--- OUTSIDE RECORDS SUMMARY | ~2019-08-22 | XMS | Encounter Summary ---
Demographics + + + | Address | [address] | | | [place] [address] | + + + | Home Phone | | + + + | Preferred Language | Unknown | + + + | Marital Status | Single | + + + | Moravian Affiliation | PEN | + + + | Race | or | + + + | Ethnic Group | Not or | + + + Author + + + | Author | [facility] | + + + | Organization | [facility] [employer] [facility] | + + + | Address | Unknown | + + + | Phone | Unavailable | + + + Support + + +---------+ + | Name | Relationship | Address | Phone | + + +---------+ + | Kaylie Baig | ECON | Unknown | | + + +---------+ + Care Team Providers + +------+ + | Care Payroll And Benefits Assistant Name | Role | Phone | + +------+ + | No Pcp Per Patient | PCP | Unavailable | + +------+ + Encounter Details +--------+ + + + + | Date | Type | Department | Care Team | Description | +--------+ + + + + | 09/11/ | Procedure | Diagnostic Imaging | | | | 2017 | Pass | Services at [facility] | | | | | | [address] | | | | | | [place] | | | | | | [facility], [address] [place] [address] | | | | | | [place], [place] | | | | | | [address] | | | | | | [phone] | | | +--------+ + + + [...]
--- OUTSIDE RECORDS SUMMARY | ~2019-08-22 | XMS | Encounter Summary ---
Demographics + + + | Address | [address] | | | [place] [address] | + + + | Home Phone [...] Author + + + | Author | [facility] | + + + | Organization | [facility] [employer] [facility] | + + + | Address | Unknown | + + + | Phone | Unavailable | + + + Support + + +---------+ + | Name | Relationship | Address | Phone | + + +---------+ + | Kaylie Baig | ECON | Unknown | | + + +---------+ + Care Team Providers + +------+ + | Care Dry Heat Room Attendant Name | Role | Phone | + [...] | | | | | | Rd [facility] | | | | | | Hospital Admitting | | | | | | Desk Located on the | | | | | | 9th floor | | | | | | [place], [place] | | | | | | [address] | | | +--------+ + + + [...]
--- OUTSIDE RECORDS SUMMARY | ~2019-08-22 | XMS | Encounter Summary ---
Demographics + + + | Address | [address] | | | [place] [address] | + + + | Home Phone [...] + + + | Author | [facility] [employer] [facility] | + + + | Organization | [facility] [employer] [facility] | + + + | Address | Unknown | + + + | Phone | Unavailable | + + + Support + + +---------+ + | Name | Relationship | Address | Phone | + + +---------+ + | Kaylie Baig | ECON | Unknown | | + + +---------+ + Care Team Providers + +------+ + | Care Senior Qa Automation Engineer Name | Role | Phone | [...] | 2018 | Pass | Services at [facility] | | | | | | [address] | | | | | | [place]ola [place] | | | | | | [facility], [address] [place] [address] | | | | | | [place], [place] | | | | | | [address] | | | | | | [phone] | | | +--------+ + + + [...]
--- OUTSIDE RECORDS SUMMARY | ~2019-08-22 | XMS | Encounter Summary ---
Demographics + + + | Address | [address] | | | [place] [address] | + + + | Home Phone [...] + + | Author | [facility] | + + + | Organization | [facility] | + + + | Address | Unknown | + + + | Phone | Unavailable | + + + Support + + +---------+ + | Name | Relationship | Address | Phone | + + +---------+ + | Kaylie Baig | ECON | Unknown | | + + +---------+ + Care Team Providers + +------+ + | Care Pole Peeler Name | Role | Phone | + [...] 2017 | Pass | Services at [facility] | | | | | | [address] | | | | | | [place] | | | | | | [facility] | | | | | | [place], [place] | | | | | | [address] | | | | | | [phone] | | | +--------+ + + + [...]
--- OUTSIDE RECORDS SUMMARY | ~2019-08-22 | XMS | Encounter Summary ---
Demographics + + + | Address | [address] | | | [place] [address] | + + + | Home Phone [...] + | Author | [email or web address] | + + + | Organization | [email or web address] | + + + | Address | Unknown | + + + | Phone | Unavailable | + + + Support + + +---------+ + | Name | Relationship | Address | Phone | + + +---------+ + | Kaylie Baig | ECON | Unknown | | + + +---------+ + Care Team Providers + +------+ + | Care Social Services Manager Name | Role | Phone | [...] | 2017 | Pass | Services at [facility] | | | | | | [address] | | | | | | [place] | | | | | | [facility], [address] [place] [address] | | | | | | [place], [place] | | | | | | [address] | | | | | | [phone] | | | +--------+ + + + [...]
--- OUTSIDE RECORDS SUMMARY | ~2019-08-22 | XMS | Encounter Summary ---
Demographics + + + | Address | [address] | | | [place] [address] | + + + | Home Phone | | + + + | Preferred Language | Unknown | + + + | Marital Status | Single | + + + | Mandaeism Affiliation | PEN | + + + | Race | or | + + + | Ethnic Group | Not or | + + + Author + + + | Author | [facility] [facility] | + + + | Organization | [facility] [employer] [facility] | [...] Team Providers + +------+ + | Care Ethylene Plant Helper Name | Role | Phone | [...] | 2018 | Pass | Services at [facility] | | | | | | [address] | | | | | | [place] | | | | | | [facility], [address] [place] [address] | | | | | | [place], [place] | | | | | | [address] | | | | | | [phone] | | | +--------+ + + + [...]
--- OUTSIDE RECORDS SUMMARY | ~2019-08-22 | XMS | Encounter Summary ---
Demographics + + + | Address | [address] | | | [place] [address] | + + + | Home Phone [...] Author + + + | Author | [facility] | + + + | Organization | [facility] | + + + | Address | Unknown | + + + | Phone | Unavailable | + + + Support + + +---------+ + | Name | Relationship | Address | Phone | + + +---------+ + | Kaylie Baig | ECON | Unknown | | + + +---------+ + Care Team Providers + +------+ + | Care Pet Walker Name | Role | Phone | + [...] | | | | | | Rd [facility] | | | | | | Hospital Admitting | | | | | | Desk Located on the | | | | | | 9th floor | | | | | | [place], [place] | | | | | | [address] | | | +--------+ + + + [...]
--- OUTSIDE RECORDS SUMMARY | ~2019-08-22 | XMS | Encounter Summary ---
Demographics + + + | Address | [address] | | | [place] [address] | + + + | Home Phone | | + + + | Preferred Language | Unknown | + + + | Marital Status | Single | + + + | Anglican Affiliation | PEN | + + + | Race | or | + + + | Ethnic Group | Not or | + + + Author + + + | Author | [facility] | + + + | Organization | [facility] | + + + | Address | Unknown | + + + | Phone | Unavailable | + + + Support + + +---------+ + | Name | Relationship | Address | Phone | + + +---------+ + | Kaylie Baig | ECON | Unknown | | + + +---------+ + Care Team Providers + +------+ + | Care Specimen Preparation Assistant Name | Role | Phone | [...] | | | | | | Rd [facility] | | | | | | Hospital Admitting | | | | | | Desk Located on the | | | | | | 9th floor | | | | | | [place], [place] | | | | | | [address] | | | +--------+ + + + [...]
--- OUTSIDE RECORDS SUMMARY | ~2019-08-22 | XMS | Encounter Summary ---
Demographics + + + | Address | [address] | | | [place] [address] | + + + | Home Phone | | + + + | Preferred Language | Unknown | + + + | Marital Status | Single | + + + | Nondenominational Affiliation | PEN | + + + | Race | or | + + + | Ethnic Group | Not or | + + + Author + + + | Author | [facility] | + + + | Organization | [facility] | + + + | Address | Unknown | + + + | Phone | Unavailable | + + + Support + + +---------+ + | Name | Relationship | Address | Phone | + + +---------+ + | Kaylie Baig | ECON | Unknown | | + + +---------+ + Care Team Providers + +------+ + | Care Weight Shifter Name | Role | Phone | + [...] | | | | | | Rd [facility] | | | | | | Hospital Admitting | | | | | | Desk Located on the | | | | | | 9th floor | | | | | | [place], [place] | | | | | | [address] | | | +--------+ + + + [...]
--- OUTSIDE RECORDS SUMMARY | ~2019-08-22 | XMS | Encounter Summary ---
Demographics + + + | Address | [address] | | | [place] [address] | + + + | Home Phone [...] + + | Author | [facility] contrib[facility]com [facility] | + + + | Organization | [facility] [facility] | + + + | Address | Unknown | + + + | Phone | Unavailable | + + + Support + + +---------+ + | Name | Relationship | Address | Phone | + + +---------+ + | Kaylie Baig | ECON | Unknown | | + + +---------+ + Care Team Providers + +------+ + | Care Tumbler Plater Name | Role | Phone | + [...] | | | | Rd [facility] | | | | | | Hospital Admitting | | | | | | Desk Located on the | | | | | | 9th floor | | | | | | [place], [place] | | | | | | [address] | | | +--------+ + + + [...]
--- OUTSIDE RECORDS SUMMARY | ~2019-08-22 | XMS | Encounter Summary ---
Demographics + + + | Address | [address] | | | [place] [address] | + + + | Home Phone | | + + + | Preferred Language | Unknown | + + + | Marital Status | Single | + + + | Denominational Affiliation | PEN | + + + | Race | or | + + + | Ethnic Group | Not or | + + + Author + + + | Author | [facility] [place] | + + + | Organization | [facility] [place] | + + + | Address | Unknown | + + + | Phone | Unavailable | + + + Support + + +---------+ + | Name | Relationship | Address | Phone | + + +---------+ + | Kaylie Baig | ECON | Unknown | | + + +---------+ + Care Team Providers + +------+ + | Care Sonar Subsystem Equipment Operator Name | Role | Phone | [...] [address] | | | | | [facility] | [address] | | | | | Hospital Admitting | [place], [place] | | | | | Desk Located on the | [address] | | | | | 9th floor | [phone] | | | | | [place], [place] | | | | | | [address] | Jennifer Henderson CRNA | | | | | | [address] | | | | | | [place] [facility] | | | | | | [place] [address] | | | | | | [phone] | | | | | | | [...] centrally accessed); | | | | | [id number]; 10/22/17; 1542; | | | | | [...] 1733 by | | g Tube | ([facility] low profile g-tube 18 fr | Katrin [...] by | 10/12/171731 by | | | (clio 19fr channel drain); | Valeria Seth RN [...]
--- OUTSIDE RECORDS SUMMARY | ~2019-08-22 | XMS | Encounter Summary ---
Demographics + + + | Address | [address] | | | [place] [address] | + + + | Home Phone | | + + + | Preferred Language | Unknown | + + + | Marital Status | Single | + + + | Mosque Affiliation | PEN | + + + | Race | or | + + + | Ethnic Group | Not or | + + + Author + + + | Author | [facility] | + + + | Organization | [facility] [employer] [facility] | + [...] Team Providers + +------+ + | Care Warehouse Operations Associate Name | Role | Phone | [...] | | | | | Guy [facility] | [address] | | | | | Hospital Admitting | [place], [place] | | | | | Desk Located on the | [address] | | | | | 9th floor | [phone] | | | | | [place], [place] | | | | | | [address] | Mariann Victor CRNA | | | | | | [address] | | | | | | [address] | | | | | | [place], [place] | | | | | | [address] | | | | | | [phone] | | | | | | | [...] | | | | Lumen | Yes; [id number]; 11/09/17; 1154; | | | | | [...]
--- OUTSIDE RECORDS SUMMARY | ~2019-08-22 | XMS | Clinical Summary ---
Demographics + + + | Address | [address] | | | [place] [address] | + + + | Home Phone [...] Team Providers + +------+ + | Care Proposal Development Manager Name | Role | Phone | + +------+ + | No Pcp Per Patient | PCP | Unavailable | + +------+ + Source Comments [facility] Allergies No Known Allergies Medications [...] | / | | MD Magdiel at [facility] | | | | | | /[id number] | | REV LOC | | | | | | 45 | + +------+--------+ +--------+--------+--------+ + + | Description:151mm x 125mm | | FT/Right-Ster | + + + +---+--------+ +---+---+--------+ | Screw Bone 4mm 1.55mm 2.55mm | | Right: | SYNTHES [facility] | | | 04.503 | | Matrixneuro | | Head | | | | .104.0 | | Craniomaxillofacial Titanium | | | | | | 5 / / | | Self Drill Nonsterile - | | | | | | | | [id number]: Qty: 11 | | | | | | | | on 11/05/2017 by Dayami, | | | | | | | | MD Magdiel at [facility] | | | | | [...] | | | | | | | [id number]: Qty: | | | | | | | | 1Explanted: Qty: 1 on | | | | | | | | 11/05/2017 at [facility] | | | | | [...] | | | + +--------+ +--------+-------+---------+--------+ | DIRECTOR OF RESEARCH AND DEVELOPMENT MEDICAID | DIRECTOR OF RESEARCH AND DEVELOPMENT | [id number] | 08/28/19 | | | [...] Person | Self | [birth year] | | [address] | | | al/Fam | | 3 | [phone] | [place] [address] | | | taras | | | 6 (Home) | | + +--------+ +--------+ + + | [place] | Third | Self | [birth year] | | [address] | | | Green Party | | 1950 | [id number] | [place] [address] | | | Liabil | | | [...]
--- OUTSIDE RECORDS SUMMARY | ~2019-08-22 | XMS | Encounter Summary ---
Demographics + + + | Address | [address] | | | [place] [address] | + + + | Home Phone [...] + + | Author | [facility] | + + + | Organization | [facility] [employer] [facility] | + + + | Address | Unknown | + + + | Phone | Unavailable | + + + Support + + +---------+ + | Name | Relationship | Address | Phone | + + +---------+ + | Kaylie Baig | ECON | Unknown | | + + +---------+ + Care Team Providers + +------+ + | Care Quality Compliance Manager Name | Role | Phone | [...] | | | Rd [facility] | | | | | | Hospital Admitting | | | | | | Desk Located on the | | | | | | 9th floor | | | | | | [place], [place] | | | | | | [address] | | | +--------+ + + + [...]
--- OUTSIDE RECORDS SUMMARY | ~2019-08-22 | XMS | Encounter Summary ---
Demographics + + + | Address | [address] | | | [place] [address] | + + + | Home Phone [...] + + | Author | [facility] | + + + | Organization | [facility] [...] Team Providers + +------+ + | Care Tailing Hand Name | Role | Phone | + [...] | | | | | Rd [facility] | | | | | | Hospital Admitting | | | | | | Desk Located on the | | | | | | 9th floor | | | | | | [place], [place] | | | | | | [address] | | | +--------+ + + + [...]
--- OUTSIDE RECORDS SUMMARY | ~2019-08-22 | XMS | Encounter Summary ---
Demographics + + + | Address | [address] | | | [place] [address] | + + + | Home Phone [...] + + | Author | [facility] | + + + | Organization | [facility] [employer] [facility] | + + + | Address | Unknown | + + + | Phone | Unavailable | + + + Support + + +---------+ + | Name | Relationship | Address | Phone | + + +---------+ + | Kaylie Baig | ECON | Unknown | | + + +---------+ + Care Team Providers + +------+ + | Care Employee Training Specialist Name | Role | Phone | [...] Chambers | | | | | Guy [facility] | [address] [place], | | | | | Hospital Admitting | [place] [address] | | | | | Desk Located on the | [phone] | | | | | 9th floor | | | | | | [place], [place] | Joslyn Boss, | | | | | [address] | [address] | | | | | | [address] | | | | | | [place], [place] | | | | | | [address] | | | | | | [phone] | | | | | | | [...] + + + | Periph | 08/31/17; [facility]; Right; | 08/31/17 0000 by | 09/05/178 by | | ansley | Hand; 18 g; 09/05/17; 1717; Per | Guera Gresham RN | Barbie Yu RN | | IV | protocol | | | +--------+ + + + | Periph | 08/31/17; [facility] hospital; Right; | 08/31/17 0000 by | [...]
--- OUTSIDE RECORDS SUMMARY | ~2019-08-22 | XMS | Clinical Summary ---
Demographics + + + | Address | [address] | | | [place] [address] | + + + | Home Phone [...] Team Providers + +------+ + | Care Wildlife Officer Name | Role | Phone | + +------+ + | No Pcp Per Patient | PCP | Unavailable | + +------+ + Source Comments SELENA is fully live on both [facility] and [facility] InPatient.[facility] Allergies No Known Allergies Medications + [...] | / | | MD Magdiel at [facility] | | | | | | /[id number] | | REV LOC | | | | | | 45 | + +------+--------+ +--------+--------+--------+ + + | Description:151mm x 125mm | | FT/Right-Ster | + + + +---+--------+ +---+---+--------+ | Screw Bone 4mm 1.55mm 2.55mm | | Right: | SYNTHES [facility] | | | 04.503 | | Matrixneuro | | Head | | | | .104.0 | | Craniomaxillofacial Titanium | | | | | | 5 / / | | Self Drill Nonsterile - | | | | | | | | [id number]: Qty: 11 | | | | | | | | on 11/05/2017 by Dayami, | | | | | | | | MD Magdiel at [facility] | | | | | | [...] | | | | | | | [id number]: Qty: | | | | | | | | 1Explanted: Qty: 1 on | | | | | | | | 11/05/2017 at [facility] | | | | | | [...] | | | + +--------+ +--------+-------+---------+--------+ | COST ENGINEER MEDICAID | COST ENGINEER | xxxxxxxx | 08/28/19 | | | [...] Person | Self | [birth year] | | [address] | | | al/Fam | | 3 | [phone] | [place] [address] | | | taras | | | 6 (Home) | | + +--------+ +--------+ + + | [place] | Third | Self | [birth year] | | [address] | | | Alliance Party | | 1950 | [id number] | [place] [address] | | | Liabil | | | [...]
--- OUTSIDE RECORDS SUMMARY | ~2019-08-22 | XMS | Clinical Summary ---
Demographics + + + | Address | [address] | | | [place] [address] | + + + | Home Phone | | + + + | Preferred Language | Unknown | + + + | Marital Status | Single | + + + | Pentecostal Affiliation | Unknown | + + + | Race | Unknown | + + + | Ethnic Group | Unknown | + + + Author + + + | Author | [facility] | | | and [place] | + + + | Organization | [facility] | | | and [place] | [...] Team Providers + +------+ + | Care Video And Sound Recorder Name | Role | Phone | + +------+ + | [facility] | PCP | | + +------+ [...] | + + + + + | Vaccine: | | | | | Dtap/Tdap/Td (1 - | 4 | | | | Tdap) | | | | + + + + + | Vaccine: Zoster (1 | | | | | of 2) | 3 | | | + + + + + | Vaccine: Influenza | | | | | (Season Ended) | 0 | | | + + + + + Results Not on filefrom Last 3 [...] +---------+--------+ | MEDICAID [facility] | MEDICA | [id number] | | [phone] | | Medica | [...] Person | Self | [birth year] | | [address] | | | al/Fam | | 1961 | [phone] | [place] [address] | | | taras | | | 1 (Home) | | + +--------+ +--------+ + + Advance Directives + + + + + | Type | Date Recorded | Patient | Explanation | | | | Panel Flow Machine Operator | | + + + + + | Power of | | | | | Horse Stud Manager | | | | + + + [...]
--- OUTSIDE RECORDS SUMMARY | ~2019-08-22 | XMS | Clinical Summary ---
Demographics + + + | Address | [address] | | | [place] [address] | + + + | Home Phone [...] Providers + +------+ + | Care Warehouse Technician Name | Role | Phone | + +------+ + | No Pcp Per Patient | PCP | Unavailable | + +------+ + Source Comments SELENA is fully live on both [facility] and [facility]Patient.[facility] Allergies No Known Allergies Medications + + [...] | / | | MD Magdiel at [facility] | | | | | | /H1894 | | REV LOC | | | | | | 45 | + +------+--------+ +--------+--------+--------+ + + | Description:151mm x 125mm | | FT/Right-Ster | + + + +---+--------+ +---+---+--------+ | Screw Bone 4mm 1.55mm 2.55mm | | Right: | SYNTHES [facility] | | | 04.503 | | Matrixneuro | | Head | | | | .104.0 | | Craniomaxillofacial Titanium | | | | | | 5 / / | | Self Drill Nonsterile - | | | | | | | | [id number]: Qty: 11 | | | | | | | | on 11/05/2017 by Dayami, | | | | | | | | MD Magdiel at [facility] | | | | | [...] | | | | | | | [id number]: Qty: | | | | | | | | 1Explanted: Qty: 1 on | | | | | | | | 11/05/2017 at [facility] | | | | | [...] | | | + +--------+ +--------+-------+---------+--------+ | GRID MOLDER MEDICAID | GRID MOLDER | xxxxxxxx | 08/28/19 | | | [...] Person | Self | [birth year] | | [address] | | | al/Fam | | 3 | [phone] | [place] [address] | | | taras | | | 6 (Home) | | + +--------+ +--------+ + + | [place] | Third | Self | [birth year] | | [address] | | | Alliance Party | | 1950 | [id number] | [place] [address] | | | Liabil | | | [...]
--- OUTSIDE RECORDS SUMMARY | ~2019-08-22 | XMS | Encounter Summary ---
Demographics + + + | Address | [address] | | | [place] [address] | + + + | Home Phone [...] + + + | Author | [facility] | + + + | Organization | [facility] | + + + | Address | Unknown | + + + | Phone | Unavailable | + + + Support + + +---------+ + | Name | Relationship | Address | Phone | + + +---------+ + | Kaylie Baig | ECON | Unknown | | + + +---------+ + Care Team Providers + +------+ + | Care A And P Technician Name | Role | Phone | [...] | 2017 | Pass | Services at [facility] | | | | | | [address] | | | | | | [place] | | | | | | [facility], [address] [place] [address] | | | | | | [place], [place] | | | | | | [address] | | | | | | [phone] | | | +--------+ + + + [...]
--- OUTSIDE RECORDS SUMMARY | ~2019-08-22 | XMS | Encounter Summary ---
Demographics + + + | Address | [address] | | | [place] [address] | + + + | Home Phone [...] Author | [facility] [employer] [facility] | + + + | Organization | [facility] [employer] [facility] | + [...] Team Providers + +------+ + | Care Graining Machine Operator Name | Role | Phone [...] | | | | | | Rd [facility] | | | | | | Hospital Admitting | | | | | | Desk Located on the | | | | | | 9th floor | | | | | | [place], [place] | | | | | | [address] | | | +--------+ + + + [...]
--- OUTSIDE RECORDS SUMMARY | ~2019-08-22 | XMS | Encounter Summary ---
Demographics + + + | Address | [address] | | | [place] [address] | + + + | Home Phone [...] Author | [facility] | + + + | Organization | [facility] [employer] [facility] | + + + | Address | Unknown | + + + | Phone | Unavailable | + + + Support + + +---------+ + | Name | Relationship | Address | Phone | + + +---------+ + | Kaylie Baig | ECON | Unknown | | + + +---------+ + Care Team Providers + +------+ + | Care Nurse Ldr Name | Role | Phone | + [...] + + + + | 09/15/ | Product Safety Officer | Neurosurgery at | Dallin Bourgeois, | Other closed | | 2018 | | [facility] [address] | MD [address] | nondisplaced | | | | [facility] | [address] | fracture of seventh | | | | Health and Healing, | [place], [place] | cervical vertebra | | | | Building , 8th | [address] | with routine | | | | floor [place], [place] | [phone] | healing, subsequent | | | | [address] | | encounter (Primary | | | | [phone] | | Dx) | +--------+ + + [...]
--- OUTSIDE RECORDS SUMMARY | ~2019-08-22 | XMS | Encounter Summary ---
Demographics + + + | Address | [address] | | | [place] [address] | + + + | Home Phone [...] + + | Author | [facility] | + + + | Organization | [facility] | + + + | Address | Unknown | + + + | Phone | Unavailable | + + + Support + + +---------+ + | Name | Relationship | Address | Phone | + + +---------+ + | Kaylie Baig | ECON | Unknown | | + + +---------+ + Care Team Providers + +------+ + | Care Cork Tile Floor Layer Name | Role | Phone | [...] | | 2018 | anned | Services [address] | | | | | | [address] | | | | | | Mailcode: [id number] | | | | | | [facility] | | | | | | [place], [place] | | | | | | [address] | | | | | | [phone] | | | +--------+ + + + [...]
--- OUTSIDE RECORDS SUMMARY | ~2019-08-22 | XMS | Encounter Summary ---
Demographics + + + | Address | [address] | | | [place] [address] | + + + | Home Phone [...] + | Author | [facility] | + + + | Organization | [facility] | + + + | Address | Unknown | + + + | Phone | Unavailable | + + + Support + + +---------+ + | Name | Relationship | Address | Phone | + + +---------+ + | Kaylie Baig | ECON | Unknown | | + + +---------+ + Care Team Providers + +------+ + | Care Cook Fish And Chips Name | Role | Phone | + [...] | | | | | Rd [facility] | | | | | | Hospital Admitting | | | | | | Desk Located on the | | | | | | 9th floor | | | | | | [place], [place] | | | | | | [address] | | | +--------+ + + + [...]
--- OUTSIDE RECORDS SUMMARY | ~2019-08-22 | XMS | Clinical Summary ---
Demographics + + + | Address | [address] | | | [place] [address] | + + + | Home Phone | | + + + | Preferred Language | Unknown | + + + | Marital Status | Single | + + + | Restoration Affiliation | Unknown | + + + | Race | Unknown | + + + | Ethnic Group | Unknown | + + + Author + + + | Author | [facility] | | | and [place] | + + + | Organization | [facility] | | | and [...] Team Providers + +------+ + | Care Document Reviewer Name | Role | Phone | + +------+ + | [facility] | PCP | | + +------+ [...] +---------+--------+ | MEDICAID [facility] | MEDICA | [id number] | | [phone] | | Medica | [...] Person | Self | [birth year] | | [address] | | | al/Fam | | 1961 | [phone] | [place] [address] | | | taras | | | 1 (Home) | | + +--------+ +--------+ + + Advance Directives + + + + + | Type | Date Recorded | Patient | Explanation | | | | Restaurant Line Server | | + + + + + | Power of | | | | | Mortgage Manager | | | | + + [...]
--- OUTSIDE RECORDS SUMMARY | ~2019-08-22 | XMS | Encounter Summary ---
Demographics + + + | Address | [address] | | | [place] [address] | + + + | Home Phone [...] + | Author | [facility] [email or web address] [facility] | + + + | Organization | [facility] [employer] [facility] | + + + | Address | Unknown | + + + | Phone | Unavailable | + + + Support + + +---------+ + | Name | Relationship | Address | Phone | + + +---------+ + | Kaylie Baig | ECON | Unknown | | + + +---------+ + Care Team Providers + +------+ + | Care Call Center Operations Manager Name | Role | Phone | [...] | 2017 | Pass | Services at [facility] | | | | | | [address] | | | | | | [address] | | | | | | [facility] | | | | | | [place], [place] | | | | | | [address] | | | | | | [phone] | | | +--------+ + + + [...]
--- OUTSIDE RECORDS SUMMARY | ~2019-08-22 | XMS | Encounter Summary ---
Demographics + + + | Address | [address] | | | [place] [address] | + + + | Home Phone [...] + + | Author | [facility] [employer] [facility] | + + + | Organization | [facility] [facility] | + + + | Address | Unknown | + + + | Phone | Unavailable | + + + Support + + +---------+ + | Name | Relationship | Address | Phone | + + +---------+ + | Kaylie aBig | ECON | Unknown | | + + +---------+ + Care Team Providers + +------+ + | Care Valve Lapper Name | Role | Phone | + [...] CENTER | | | | | | [address] | | | | | | [place] | | | | | | [facility], [address] [place] [address] | | | | | | [place], [place] | | | | | | [address] | | | | | | [phone] | | | +--------+ + + + [...]
--- OUTSIDE RECORDS SUMMARY | ~2019-08-22 | XMS | Encounter Summary ---
Demographics + + + | Address | [address] | | | [place] [address] | + + + | Home Phone [...] Author + + + | Author | [facility] | + + + | Organization | [facility] | + + + | Address | Unknown | + + + | Phone | Unavailable | + + + Support + + +---------+ + | Name | Relationship | Address | Phone | + + +---------+ + | Kaylie Baig | ECON | Unknown | | + + +---------+ + Care Team Providers + +------+ + | Care International Trade Specialist Name | Role | Phone | [...] [place] | | | | | Guy [facility] | [address] | | | | | Hospital Admitting | [place], [place] | | | | | Desk Located on the | [address] | | | | | 9th floor | [phone] | | | | | [place], [place] | | | | | | [address] | [address], | | | | | | [facility] [address] | | | | | | [address] | | | | | | [place], [place] | | | | | | [address] | | | | | | [phone] | | | | | | | [...] centrally accessed); | | | | | [id number]; 10/22/17; 1542; | | | | | [...]
--- OUTSIDE RECORDS SUMMARY | ~2019-08-22 | XMS | Encounter Summary ---
Demographics + + + | Address | [address] | | | [place] [address] | + + + | Home Phone | | + + + | Preferred Language | Unknown | + + + | Marital Status | Single | + + + | Temple Affiliation | PEN | + + + | Race | or | + + + | Ethnic Group | Not or | + + + Author + + + | Author | [facility] | + + + | Organization | [facility] | [...] Team Providers + +------+ + | Care It Risk And Assurance Senior Manager Name | Role | Phone | [...] | | | | | | Rd [facility] | | | | | | Hospital Admitting | | | | | | Desk Located on the | | | | | | 9th floor | | | | | | [place], [place] | | | | | | [address] | | | +--------+ + + + [...]
--- OUTSIDE RECORDS SUMMARY | ~2019-08-22 | XMS | Encounter Summary ---
Demographics + + + | Address | [address] | | | [place] [address] | + + + | Home Phone [...] + + | Author | [facility] | + + + | Organization | [facility] [employer] [facility] | + + + | Address | Unknown | + + + | Phone | Unavailable | + + + Support + + +---------+ + | Name | Relationship | Address | Phone | + + +---------+ + | Kaylie Baig | ECON | Unknown | | + + +---------+ + Care Team Providers + +------+ + | Care Operations Expert Name | Role | Phone | [...] [address] | | | | | [facility] | [address] [place], | | | | | Hospital Admitting | [place] [address] | | | | | Desk Located on the | [phone] | | | | | 9th floor | | | | | | [place], [place] | Patti Forte [place] | | | | | [address] | [address] | | | | | | [address] [facility] | | | | | | [place] [address] | | | | | | [phone] | | | | | | | [...]
--- OUTSIDE RECORDS SUMMARY | ~2019-08-22 | XMS | Encounter Summary ---
Demographics + + + | Address | [address] | | | [place] [address] | + + + | Home Phone [...] Author + + + | Author | [facility] | + + + | Organization | [facility] [employer] [facility] | + + + | Address | Unknown | + + + | Phone | Unavailable | + + + Support + + +---------+ + | Name | Relationship | Address | Phone | + + +---------+ + | Kaylie Baig | ECON | Unknown | | + + +---------+ + Care Team Providers + +------+ + | Care Silver Chaser Name | Role | Phone | + [...] | | | | Guy [facility] | [address] | | | | | Hospital Admitting | [place], [place] | | | | | Desk Located on the | [address] | | | | | 9th floor | [phone] | | | | | [place], [place] | | | | | | [address] | Joslyn Boss, | | | | | | [address] | | | | | | [address] | | | | | | [place], [place] | | | | | | [address] | | | | | | [phone] | | | | | | | [...]
--- OUTSIDE RECORDS SUMMARY | ~2019-08-22 | XMS | Encounter Summary ---
Demographics + + + | Address | [address] | | | [place] [address] | + + + | Home Phone | | + + + | Preferred Language | Unknown | + + + | Marital Status | Single | + + + | Oriental Orthodox Affiliation | PEN | + + + | Race | or | + + + | Ethnic Group | Not or | + + + Author + + + | Author | [facility] | + + + | Organization | [facility] [employer] [facility] | + + + | Address | Unknown | + + + | Phone | Unavailable | + + + Support + + +---------+ + | Name | Relationship | Address | Phone | + + +---------+ + | Kaylie Baig | ECON | Unknown | | + + +---------+ + Care Team Providers + +------+ + | Care Team Assembler Name | Role | Phone | + [...] | | | | | | Rd [facility] | | | | | | Hospital Admitting | | | | | | Desk Located on the | | | | | | 9th floor | | | | | | [place], [place] | | | | | | [address] | | | +--------+ + + + [...]
--- OUTSIDE RECORDS SUMMARY | ~2019-08-22 | XMS | Encounter Summary ---
Demographics + + + | Address | [address] | | | [place] [address] | + + + | Home Phone [...] | Author | [facility] [employer] [facility] | + + + | Organization | [facility] [employer] [facility] [...] Team Providers + +------+ + | Care Equip Tech Name | Role | Phone | + [...] | | | | | | Rd [facility] | | | | | | Hospital Admitting | | | | | | Desk Located on the | | | | | | 9th floor | | | | | | [place], [place] | | | | | | [address] | | | +--------+ + + + [...]
--- OUTSIDE RECORDS SUMMARY | ~2019-08-22 | XMS | Encounter Summary ---
Demographics + + + | Address | [address] | | | [place] [address] | + + + | Home Phone [...] + | Author | [facility] [employer] [facility] | + + + | Organization | [facility] [employer] [facility] | + [...] Team Providers + +------+ + | Care Gatekeeper Name | Role | Phone | + [...] Guy [facility] | [address] [place], | | | | | Hospital Admitting | [place] [address] | | | | | Desk Located on the | [phone] | | | | | 9th floor | | | | | | [place], [place] | Patti Forte [place] | | | | | [address] | [address] | | | | | | [address] [facility] | | | | | | [place] [address] | | | | | | [phone] | | | | | | | [...] PDT | | | | | Starting Hso 10/24/17 at 1121, | | | | [...]
--- OUTSIDE RECORDS SUMMARY | ~2019-08-22 | XMS | Encounter Summary ---
Demographics + + + | Address | [address] | | | [place] [address] | + + + | Home Phone [...] Author | [facility] [employer] [facility] | + + + | Organization | [facility] [employer] [facility] | + + + | Address | Unknown | + + + | Phone | Unavailable | + + + Support + + +---------+ + | Name | Relationship | Address | Phone | + + +---------+ + | Kaylie Baig | ECON | Unknown | | + + +---------+ + Care Team Providers + +------+ + | Care Sound Editor Name | Role | Phone | + [...] CENTER | | | | | | [address] | | | | | | [address] [place] | | | | | | [facility], [address] [place] [address] | | | | | | [place], [place] | | | | | | [address] | | | | | | [phone] | | | +--------+ + + + [...]
--- OUTSIDE RECORDS SUMMARY | ~2019-08-22 | XMS | Encounter Summary ---
Demographics + + + | Address | [address] | | | [place] [address] | + + + | Home Phone | | + + + | Preferred Language | Unknown | + + + | Marital Status | Single | + + + | Spiritism Affiliation | PEN | + + + | Race | or | + + + | Ethnic Group | Not or | + + + Author + + + | Author | [facility] | + + + | Organization | [facility] | + + + | Address | Unknown | + + + | Phone | Unavailable | + + + Support + + +---------+ + | Name | Relationship | Address | Phone | + + +---------+ + | Kaylie Baig | ECON | Unknown | | + + +---------+ + Care Team Providers + +------+ + | Care Shoe Polisher Name | Role | Phone | + [...] | | | | | Procedures | [place], [place] | [place] | | | | | REQUEST TO | [address] | [address] | | | | | SURGERY | Phone: | Phone: | | | | | SHEAR SETTER | [phone] | [phone] | | | | | CO REPLACE | Fax: | Fax: | | | | | SKULL | [phone] | [phone] | | | | | PLATE/FLAP | | | | | | | CO REPAIR | | | | | | | SKULL | | | | | | | DEFECT,UP TO | | | | | | | 5CM CO | | | | | | | REPAIR SKULL | | | | | | | DEFECT,>5CM | | | | | | | CO | | | | | | | [...] + + + | 10/31/ | Sales Representative Printing Paper | [facility] | Magdiel Stock MD | Skull defect | | 2018 | | [facility] [address] | [address] | (Primary Dx) | | | | [facility] | [facility], | | | | | [facility] He[facility], | [place] [address] | | | | | [facility] | [phone] | | | | | Floor [place], [place] | | | | | | [address] | | | | | | [phone] | | | +--------+ + + + [...]
--- OUTSIDE RECORDS SUMMARY | ~2019-08-22 | XMS | Encounter Summary ---
Demographics + + + | Address | [address] | | | [place] [address] | + + + | Home Phone [...] + + | Author | [facility] | + + + | Organization | [facility] | + [...] Team Providers + +------+ + | Care Gerontological Nurse Practitioner Name | Role | Phone | + +------+ + | No Pcp Per Patient | PCP | Unavailable | + +------+ + Encounter Details +--------+ + + + + | Date | Type | Department | Care Team | Description | +--------+ + + + + | 10/12/ | Procedure | Diagnostic Imaging | | | | 2018 | Pass | Services at [facility] | | | | | | [address] | | | | | | [place] | | | | | | [facility], [address] [place] [address] | | | | | | [place], [place] | | | | | | [address] | | | | | | [phone] | | | +--------+ + + + [...]
--- OUTSIDE RECORDS SUMMARY | ~2019-08-22 | XMS | Encounter Summary ---
Demographics + + + | Address | [address] | | | [place] [address] | + + + | Home Phone [...] Author + + + | Author | [facility] | + + + | Organization | [facility] [email or web address] [facility] | + [...] Team Providers + +------+ + | Care Receiver Bulk System Name | Role | Phone | + [...] Chambers | | | | | Guy [facility] | [address] [place], | | | | | Hospital Admitting | [place] [address] | | | | | Desk Located on the | [phone] | | | | | 9th floor | | | | | | [place], [place] | Patti Forte MD | | | | | [address] | [address] | | | | | | [address] [facility] | | | | | | [place] [address] | | | | | | [phone] | | | | | | | [...]
--- OUTSIDE RECORDS SUMMARY | ~2019-08-22 | XMS | Encounter Summary ---
Demographics + + + | Address | [address] | | | [place] [address] | + + + | Home Phone | | + + + | Preferred Language | Unknown | + + + | Marital Status | Single | + + + | Tenriism Affiliation | Unknown | + + + | Race | Unknown | + + + | Ethnic Group | Unknown | + + + Author + + + | Author | [facility] | | | and [place] | + + + | Organization | [facility] | | | and [...] Team Providers + +------+ + | Care Tester Armature Or Fields Name | Role | Phone | + [...] abuse; | | 03/18/ | | [address] [place], [place] | [place] [address] | Traumatic brain | | 2017 | | [address] | [phone] | injury, without loss | | | | [phone] | | of consciousness, | | | | | Kamini Garcia | subsequent | | | | | MD José Manuel [address] | encounter; Fall, | | | | | [address] | initial encounter; | | | | | [place] [address] | Homelessness; | | | | | [phone] | Nicotine abuse; | | | | | | Hyperglycemia; | | | | | Piedad Ruiz MD | Hypokalemia | | | | | [address] | | | | | | Floor [place] | | | | | | [address] | | | | | | | [...] + documented in this encounter Discharge Summaries Kamini Garcia MD - 03/18/2017 1:35 PM PSTFormatting [...] UP: No follow-up provider specified. 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 The patient was hospitalized for one month at [facility]. He underwent decompressive craniectomy and was discharged without a bone flap in place. He has a 3 month follow-up for cranioplasty. Since his discharge on 03/08 from [facility] the patient has been in and out of emergency departments [facility] as well as [facility]. He was transferred back to [facility] on 03/13, then discharged to [facility] on 03/15. He presented to the emergency department at [facility] on 03/15 after being discharged from [facility] on the same day. His chief complaint was headache, dizziness and weakness. He suffered a fall in the emergency department here a t [facility] facility. In the ED he was [...] was made for patient to return to [facility] for t reatment under guidance of his neurosurgeon and physicians/staff familiar to his case. Pt wi ll go to dr Guerrero on hospitalist team, with consultation from his neurosurgeon, dr Breaux. D iscussed case with Dr Jatinder Kemp, hospitalst at [facility]. DISCHARGE DIAGNOSES: Active Hospital Problems Diagnosis Acute [...] mg by mouth 2 times daily. aka: WINSTON Discontinued Medications zolpidem 5 mg tablet aka: LEXIE PROCEDURES THIS ADMISSION: as above PERTINENT LAB AND IMAGING RESULTS: as above CONDITION AT DISCHARGE: Fair TIME SPENT ON DISCHARGE: greater than 30 minutes Electronically signed by: Kamini Garcia MD 03/18/2017 13:35 Portions of this chart may have been created with Vusay voice recognition software. Occasi onal wrong-word or [...] transport 1630. PCS form in soft chart. [facility], room 1126 Intervention: Arranged [facility] stretcher transport for 1630, completed and placed in soft chart . Requested MD complete Interhospital Transfer Form. MD completed EMTALA Form 2016 form in E PIC which requires RN to complete as well, provider not able to complete Interhospital Trans khari Form, states EMTALA 2016 form is sufficient. SW discussed with RN and manager decision support. RN and manager decision support aware of transport at 1630 and need for form to be completed prior to [facility] arrival. MD and RN verify report was given. SW informed Nunu at [facility] bed placement: [phone] o f transport car pick up driver time, verify bed availability, provider and RN assignment. Chart Review: Pt is a 56 yo who is homeless and has [place] Medicaid. Order for readmi ssion risk. MD is requesting placement in a SNF or AFH. Barrier to SNF placement will be [place] edicaid and homelessness. SW also completed a HCS referral and faxed to [facility]. SW requested help with finding permanent placement for pt due to his readmission risk and TBI. SW also faxed referral to [facility] respite bed as well for placement. Mitali Cooper RN - 03/18/2017 3:21 PM PSTSJOSE-CM; SLRI team signing off case. Per MD notes patient transferring to [facility].Electronically signed b y: [...] HCS referr al is processed due to HS possibly being unable to maintain contact with pt in community d ue to transient lifestyle. Pt will need to be continent and without need for sitter/restrain ts to d/c to [facility] Respite. Chart Review: Pt is a 56 yo who is homeless and has [place]. Order for readmi ssion risk. is requesting placement in a SNF or AFH. Barrier to SNF placement will be [place] edicaid and homelessness. SW also completed a HCS referral and faxed to [facility]. SW requested help with finding permanent placement for pt due to his readmission risk and TBI. SW also faxed referral to [facility] resp[facility] bed as well for placement. Allison, Mitali Casarez RN - 03/18/2017 12:01 PM PSTALEXEI geriatric case manager received referral. Clinical information reviewed. Will discuss with Dr. Hawkins and follow progress for discharge recommendations.Electronically signed by: Mitali Robertson RN 03/18/2017 12:01 Kamini Mendez MD - 03/17/2017 2:19 PM PSTFormatting of this note might be different from the orig inal. 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 The patient was hospitalized for one month at [facility]. He underwent decompressive craniectomy and was discharged without a bone flap in place. He has a 3 month follow-up for cranioplasty. Since his discharge on 03/08 from [facility] the patient has been in and out of emergency departments [facility] as well as [facility]. His discharge is usually to the local assisted because the patient is h omeless. He has a history of alcohol abuse and per records most recently drank 3 days ago. He presents to the emergency department here at [facility] on 05/15 after being seen at [facility] on the same day. His chief complaint was headache, dizziness and weakness. He suffered a fall in the emergency department here at [facility]. In the ED he was found to [...] Neurosurgery at [facility](dr Horner ) was consulted, and feels pt [...] to discuss pt transfer b ack to [facility], though pt presented to our ER only hours after discharging from [facility] on 03/15/17. I feel patient was unsafely discharged from [facility], as he he has been unable to even stand independently since admission to our ER. Will discuss further with administration on Saturday. Plan: keep the head of bed elevated. Traumatic brain injury Admission at [facility] from 02/05-03/08, and again 03/13 to 03/15 after [facility]. Status post decompressive craniectomy. Discharged without bone [...] not done well with discharge to the assisted given as he is unable to take [...] to perform ROS: pt mildy encephalopathic, uncooperative wtih ROS. Objective: Vital Signs 03/15 0700 - [...] Line - Single Lumen 03/15/171953 Right Forearm cbhu-pzv-fdezne catheter sys tem 20 gauge 1 day [...] and Plan for details. Electronically signed by: Kamini Garcia MD 03/17/2017 14:19 Portions of this chart may have been created with Vusay voice recognition software. Occasi onal wrong-word or sound-alike substitutions may have occurred due to the inherent vaughn itations of voice recognition software. Please read the chart carefully and recognize, using context, where these substitutions have occurred Vanessa, Kamini Georges MD - 03/16/2017 4:39 PM PSTFormatting of this note might be different fro m the original. 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 The patient was hospitalized for one month at [facility]. He underwent decompressive craniectomy and was discharged without a bone flap in place. He has a 3 month follow-up for cranioplasty. Since his discharge on 03/08 from [facility] the patient has been in and out of emergency departments [facility] as well as [facility]. His discharge is usually to the local assisted because the patient is h omeless. He has a history of alcohol abuse and per records most recently drank 3 days ago. He presents to the emergency department here at [facility] on 05/15 after being seen at [facility] on the same day. His chief complaint was headache, dizziness and weakness. He suffered a fall in the emergency department here at [facility]. In the ED he was found to [...] Neurosurgery at [facility](dr Horner) was consulted, and feels pt needs [...] would seek to discuss pt transfer ba arnold to [facility], though pt presented to our ER only hours after discharging from [facility] o n 03/15/17. Plan: keep the head of bed elevated. Traumatic brain injury Admission at [facility] from 02/05-03/08 Status post decompressive craniectomy. Discharge [...] not done well with discharge to the assisted given as he is unable to take [...] our ER hours after [facility](where he has been hospitalized for a month since feb 05, and all his care for his has been through their facility. I have spent a total of 2 hours and 30 min in sigifredo luation of patient(noon until 2:30pm), going through [facility] records, multiple phone calls to 2 separate neurosurgeons at both [facility] and [facility], a [facility] hospitalist, bed contro l at [facility] and [facility], power generation plant operator nursing program manager in regards to pt admission and complex discha rge needs as well as social work. Review of Systems Reason unable to perform ROS: encephalopathy. Objective: Vital Signs 03/14 07 - 03/15 0659 03/15 07 - 03/16 0659 03/16 07 - 03/16 1639 Most Rec ent Temp [...] Line - Single Lumen 03/15/171953 Right Forearm kedd-oyg-rofley catheter sys tem 20 gauge less than [...] and Plan for details. Electronically signed by: Kamini Garcia MD 03/16/2017 16:39 Portions of this chart may have been created with Dragon voice recognition software. Occasi onal wrong-word or sound-alike substitutions may have occurred due to the inherent vaughn itations of voice recognition software. Please read the chart carefully and recognize, using context, where these substitutions have occurred Dylan Shelley, Supervisor Mails - 03/16/2017 12:48 PM PSTFormatting of this [...] medications when he is in a hospital. ARGON TESTER list reflects current med list from [facility]. Patient s prior to admit medications and over the counter (OTC) medications/herbal supple ments list obtained from interview with patient, [facility], and [place] Prescription Monitoring John larios. Total # of Prior to Admission Meds: 4 Noted Medication Discrepancies or Medication-related Issues Dosage change: none Medication added: none Removed therapy: nicotine patch (pt states he only uses when he's in the hospital) ARGON TESTER Medications Prior to Admission medications Medication Sig [...] [] [] Tdap [] [x] [] [] ARGON TESTER Med List Sources Medications reported by the [...] [place] Prescription Monitoring Program [x] Other sources: [facility] Medication history performed and electronically signed by PRICILLA WILKINS, Pharmacy Lorraine h 03/16/2017 12:48 Associated attestation - Ayah Harvey PharmKameron - 03/16/2017 1:07 PM PSTReviewed ARGON TESTER me d list changes and agree with discrepancies noted by electrical technician instructor. Electronically signed by: Merle Martinez PharmD 03/16/2017 13:07 Leif Horner MD - 03/16/2017 7:49 AM PSTDiscussed patient and reviewed films. eLon darnell had right craniectomy about 1 month ago. Right edema now resolved but CT shows shift to l eft increased from scan of 03/09. May require replacement of bone graft. Assume this is stor ed at [facility] where surgery occurred. Suggest discussion with [facility] Staff for transfe r to that facility. Marialuisa Andre, OCCUPATIONAL THERAPY INSTRUCTOR - 03/16/2017 7:44 AM PSTDischarge Planning: Pt is a 56 yo who is avelina eless and has [place] Medicaid. SIGIFREDO acknowledged order for readmission risk. MD is reque sting placement in a SNF or AFH. SIGIFREDO left sticky note for MD requesting PT and OT be ordered before SNF can be pursued. Barrier to SNF placement will be Medicaid and homelessness. SIGIFREDO also completed a HCS referral and faxed to [facility]. SIGIFREDO requested help with finding permanent [...] being readmitted to hospital once DC to assisted and therefore this may not be a safe and stable DC. Joe Olivia RN - 03/16/2017 12:06 AM PSTAttempted to complete patient admit, pt c/o headache and not cooperative with admission questions. Electronically signed by: Joe Clark RN 03/16/2017 0:06 documented in is encounter Plan of Treatment + +------+--------+ + [...] | + +--------+ + + + | IMAGING REPORT - | | 03/15/2017 | | Results for this | | EXTERNAL SCAN | | 12:00 AM | | procedure are in the | | | | PST | | results section. | + +--------+ + + + | LABS - EXTERNAL SCAN | | 03/15/2017 | | Results for this | | | | 12:00 AM | | procedure are in the | | | | PST | | results section. | + +--------+ + + + | IMAGING REPORT - | | 03/13/2017 | | Results for this | | EXTERNAL SCAN | | 12:00 AM | | procedure are in the | | | | PST | | results section. | + +--------+ + + + documented in this encounter Results POC [...] ANDREWS | [address] | [place] [address] | | | [facility] | | | | | LABORATORY [...] + | [facility] | [address] | [place] [address] | | | [facility] | | | | | LABORATORY [...] + + | [facility] ANDRE[facility] | [address] | [place] [address] | | | [facility] | | | | | LABORATORY [...] + | [facility] | [address] | [place] [address] | | | [facility] | | | | | LABORATORY [...] + + + | Glucose | 98Comment: Botswanan | 65 - 99 mg/dL | [facility] | | | | Diabetes Association | [...] + + | NIALL ANDRE[facility] | [address] | [place] [address] | | | [facility] | | | | | LABORATORY | | | | + + + + + Hemoglobin A1C (03/18/2017 4:17 AM PST) + + + + + + | Component | Value | Ref Range | Performed | Pathologist | | | | | At | Signature | + + + + + + | Hemoglobin | 5.2Comment: The Botswanan | 4.3 - 6.1 % | [facility] [...] + + | [facility] | [address] | [place] [address] | | | [facility] | | | | | LABORATORY [...] + | NIALL ANDREWS | [address] | [place] [address] | | | [facility] | | | | | LABORATORY [...] + | [facility] | [address] | [place] [address] | | | [facility] | [...] + + | Glucose | 198 (H)Comment: Botswanan | 65 - 99 mg/dL | [facility] [...] + + | [facility] | [address] | [place] [address] | | | [facility] | [...] 4.0 | 2.3 - 4.8 mg/dL | [facility] | | | | | | [facility] [...] + + | [facility]RE[facility] | [address] | [place] [address] | | | [facility] | | | | | LABORATORY [...] + + | [facility] | [address] | [place] [address] | | | [facility] | [...] | Procedure Note | + + | Leonides, Rad Results In - 03/15/2017 6:56 PM [...] + + | [facility] | [address] | [place] [address] | | | [facility] | | | | | LABORATORY [...] + + + + + + | Clarity | Clear | | [facility] | | | | [...] - 1.030 | [facility] | | | [place] | | | [facility] | | | [...] + + | [facility]RE[facility] | [address] | [place] [address] | | | [facility] | | | | | LABORATORY [...] + + | NIALL ANDREWS | [address] | [place] [address] | | | [facility] | | | | | LABORATORY [...] + | NIALL ANDREWS | [address] | [place] [address] | | | [facility] | | | | | LABORATORY [...] + + | Glucose | 125 (H)Comment: Botswanan | 65 - 99 mg/dL | [facility] [...] (L) | 8 - 25 mg/dL | [facility] | | | | | | [facility]CRED [...] | + + + + + | [facility] | [address] | [place] [address] | | | [facility] | | | | | LABORATORY | | | | + + + + + CBC with Differential (03/15/2017 3:24 PM PST) + + + + + + | Component | Value | Ref Range | Performed | Pathologist | | | | | At | Signature | + + + + + + | WBC | 8.4 | 3.8 - 11.0 K/uL | [facility] | | | [facility] | | | | | | [facility] | | | | | | MEDICAL | | | | | | CENTER | | | | | | LABORATORY | | + + + + + + | RBC | 4.25 | 4.20 - 5.70 | [facility] | | | | | M/uL | [facility] | | [...] + | [facility] | [address] | [place] [address] | | | [facility] | | | | | LABORATORY [...] | | | | | | use Empire 10/325 if ordered. If | | | [...] | | | | | | use Empire 10/325 if ordered. If | | | [...] scheduled: AC, | | | NPO, Daytime 7298-0111 Use NIGHT | | | DOSE for doses scheduled: | | | HS, 3AM, Nighttime 5350-0404 Only | | | for use with [...]
--- OUTSIDE RECORDS SUMMARY | ~2019-08-22 | XMS | Encounter Summary ---
Demographics + + + | Address | [address] | | | [place] [address] | + + + | Home Phone [...] + + | Author | [facility] | + + + | Organization | [facility] [employer] [facility] | + + + | Address | Unknown | + + + | Phone | Unavailable | + + + Support + + +---------+ + | Name | Relationship | Address | Phone | + + +---------+ + | Kaylie Baig | ECON | Unknown | | + + +---------+ + Care Team Providers + +------+ + | Care Railway Switchman Name | Role | Phone | + [...] floor | | | | | | [place], [place] | | | | | | [address] | | | +--------+ + + + [...]
--- OUTSIDE RECORDS SUMMARY | ~2019-08-22 | XMS | Encounter Summary ---
Demographics + + + | Address | [address] | | | [place] [address] | + + + | Home Phone [...] + + | Author | [facility] | + + + | Organization | [facility] [employer] [facility] | [...] Team Providers + +------+ + | Care Flash Welding Machine Operator Name | Role | Phone [...] | | | | Hospital Admitting | [place], [place] | | | | | Desk Located on the | [address] | | | | | 9th floor | [phone] | | | | | [place], [place] | | | | | | [address] | Jennifer Henderson CRNA | | | | | | [address] | | | | | | [place] [facility] | | | | | | [place] [address] | | | | | | [phone] | | | | | | | [...] centrally accessed); | | | | | [id number]; 10/22/17; 1542; | | | | | [...] on | Right; head- parietal; 11/05/17; | Katirn Watson RN | Debby Lewis, | | [...] 1733 by | | g Tube | ([facility] low profile g-tube 18 fr [...] by | 10/12/171731 by | | | (siren 19fr channel drain); | Valeria Seth RN [...]
--- OUTSIDE RECORDS SUMMARY | ~2019-08-22 | XMS | Encounter Summary ---
Demographics + + + | Address | [address] | | | [place] [address] | + + + | Home Phone [...] + | Author | [facility] | + + + | Organization | [facility] | + + + | Address | Unknown | + + + | Phone | Unavailable | + + + Support + + +---------+ + | Name | Relationship | Address | Phone | + + +---------+ + | Kaylie Baig | ECON | Unknown | | + + +---------+ + Care Team Providers + +------+ + | Care Independent Sales Representative Name | Role | Phone | [...] | | | | | Rd [facility] | | | | | | Hospital Admitting | | | | | | Desk Located on the | | | | | | 9th floor | | | | | | [place], [place] | | | | | | [address] | | | +--------+ + + + [...]
--- OUTSIDE RECORDS SUMMARY | ~2019-08-22 | XMS | Encounter Summary ---
Demographics + + + | Address | [address] | | | [place] [address] | + + + | Home Phone [...] Author | [facility] | + + + | Organization | [facility] [employer] [facility] [...] Team Providers + +------+ + | Care Clay Caster Name | Role | Phone | + [...] Pharmacy | | | | | | [address] | | | | | | [address] [place], [place] | | | | | | [address] | | | | | | [phone] | | | +--------+ + + + [...]
--- OUTSIDE RECORDS SUMMARY | ~2019-08-22 | XMS | Encounter Summary ---
Demographics + + + | Address | [address] | | | [place] [address] | + + + | Home Phone [...] Author + + + | Author | [facility] [employer] [facility] | + + + | Organization | [facility] [employer] [facility] | + + + | Address | Unknown | + + + | Phone | Unavailable | + + + Support + + +---------+ + | Name | Relationship | Address | Phone | + + +---------+ + | Kaylie Baig | ECON | Unknown | | + + +---------+ + Care Team Providers + +------+ + | Care Editing Intern Name | Role | Phone | + [...] UNIT | | | | | | [address] | | | | | | [place] | | | | | | [facility], [address] [place] [address] | | | | | | [place], [place] | | | | | | [address] | | | | | | [phone] | | | +--------+ + + + [...]
--- OUTSIDE RECORDS SUMMARY | ~2019-08-22 | XMS | Encounter Summary ---
Demographics + + + | Address | [address] | | | [place] [address] | + + + | Home Phone [...] + + | Author | [facility] | + + + | Organization | [facility] [employer] [facility] | + + + | Address | Unknown | + + + | Phone | Unavailable | + + + Support + + +---------+ + | Name | Relationship | Address | Phone | + + +---------+ + | Kaylie Baig | ECON | Unknown | | + + +---------+ + Care Team Providers + +------+ + | Care Senior Manager Mergers & Acquisitions Name | Role | Phone | + [...] HOSPITAL | | | | | | [address] | | | | | | [place] | | | | | | [facility], [address] [place] [address] | | | | | | [place], [place] | | | | | | [address] | | | | | | [phone] | | | +--------+ + + + [...]
--- OUTSIDE RECORDS SUMMARY | ~2019-08-22 | XMS | Encounter Summary ---
Demographics + + + | Address | [address] | | | [place] [address] | + + + | Home Phone [...] + | Author | [facility] | + + + | Organization | [facility] [employer] [facility] | + + + | Address | Unknown | + + + | Phone | Unavailable | + + + Support + + +---------+ + | Name | Relationship | Address | Phone | + + +---------+ + | Kaylie Baig | ECON | Unknown | | + + +---------+ + Care Team Providers + +------+ + | Care Barrel Bander Name | Role | Phone | + [...] | | | | | | Rd [facility] | | | | | | Hospital Admitting | | | | | | Desk Located on the | | | | | | 9th floor | | | | | | [place], [place] | | | | | | [address] | | | +--------+ + + + [...]
--- OUTSIDE RECORDS SUMMARY | ~2019-08-22 | XMS | Encounter Summary ---
Demographics + + + | Address | [address] | | | [place] [address] | + + + | Home Phone [...] + | Author | [email or web address] | + + + | Organization | [facility] [employer] [facility] | + + + | Address | Unknown | + + + | Phone | Unavailable | + + + Support + + +---------+ + | Name | Relationship | Address | Phone | + + +---------+ + | Kaylie Baig | ECON | Unknown | | + + +---------+ + Care Team Providers + +------+ + | Care Archivist Name | Role | Phone | + [...] | | | Guy [facility] | [address] | | | | | Hospital Admitting | [place], [place] | | | | | Desk Located on the | [address] | | | | | 9th floor | [phone] | | | | | [place], [place] | | | | | | [address] | Rg Arriola, | | | | | | [facility] [address] | | | | | | [address] | | | | | | [place], [place] | | | | | | [address] | | | | | | [phone] | | | | | | | [...] centrally accessed); | | | | | [id number]; 10/22/17; 1542; | | | | | [...]
--- OUTSIDE RECORDS SUMMARY | ~2019-08-22 | XMS | Encounter Summary ---
Demographics + + + | Address | [address] | | | [place] [address] | + + + | Home Phone [...] | Author | [facility] [employer] [facility] | + + + | Organization | [facility] [employer] [facility] | + [...] Team Providers + +------+ + | Care Auto Tune Up Mechanic Name | Role | Phone | [...] SERVICES | | | | | | [address] | | | | | | Nola [place]TERS | | | | | | [facility], [address] [place] [address] | | | | | | [place], [place] | | | | | | [address] | | | | | | [phone] | | | +--------+ + + + [...]
--- OUTSIDE RECORDS SUMMARY | ~2019-08-22 | XMS | Encounter Summary ---
Demographics + + + | Address | [address] | | | [place] [address] | + + + | Home Phone | | + + + | Preferred Language | Unknown | + + + | Marital Status | Single | + + + | Sabianist Affiliation | Unknown | + + + | Race | Unknown | + + + | Ethnic Group | Unknown | + + + Author + + + | Author | [facility] | | | and [place] | + + + | Organization | [facility] | | | and [...] Team Providers + +------+ + | Care Beater Machine Operator Name | Role | Phone [...] abuse; | | 03/18/ | | [address] [place], [place] | [place] [address] | Traumatic brain | | 2017 | | [address] | [phone] | injury, without loss | | | | [phone] | | of consciousness, | | | | | Kamini Garcia | subsequent | | | | | MD José Manuel [address] | encounter; Fall, | | | | | [address] | initial encounter; | | | | | [place] [address] | Homelessness; | | | | | [phone] | Nicotine abuse; | | | | | | Hyperglycemia; | | | | | Piedad Ruiz MD | Hypokalemia | | | | | [address] | | | | | | Floor [place] | | | | | | [address] | | | | | | | [...] might be di fferent from the original. [facility] FACULTY HOSPITALIST DISCHARGE SUMMARY PATIENT NAME: Berlin Temple DATE OF : 1960 DATE OF ADMISSION: 03/15/2017 DATE OF DISCHARGE: 03/18/17 PRIMARY CARE PHYSICIAN: Kat Satples ISSUES REQUIRING FOLLOW UP AFTER DISCHARGE: needs management of symptomatic positional kirstie iation addressed, as well as general deconditioning and inability to care for self related t o catastrophic head injury sustained in jan 2017. FOLLOW UP: No follow-up provider specified. 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 The patient was hospitalized for one month at [facility]. He underwent decompressive craniectomy and was discharged without a bone flap in place. He has a 3 month follow-up for cranioplasty. Since his discharge on 03/[address] [facility] the patient has been in and out of emergency departments [facility] as well as [facility]. He was transferred back to [facility] on 03/13, then discharged to [facility] on 03/15. He presented to the emergency department at [facility] on 03/15 after being discharged from [facility] on the same day. His chief complaint was headache, dizziness and weakness. He suffered a fall in the emergency department here a t [facility] facility. In the ED he [...] for patient to return to [facility] for t reatment under guidance of his neurosurgeon and physicians/staff familiar to his case. Pt wi ll go to dr Guerrero on hospitalist team, with consultation from his neurosurgeon, dr Breaux. D iscussed case with Dr Jatinder Kemp, hospitalst at [facility]. DISCHARGE DIAGNOSES: Active Hospital Problems Diagnosis [...] this chart may have been created with [employer] voice recognition software. Occasi onal wrong-word or [...] transport 1630. PCS form in soft chart. [facility], room 1126 Intervention: Arranged [facility] stretcher transport for 1630, completed and placed in soft chart . Requested MD complete Interhospital Transfer Form. MD completed EMTALA Form 2016 form in E PIC which requires RN to complete as well, provider not able to complete Interhospital Trans khari Form, states EMTALA 2016 form is sufficient. SW discussed with RN and microbiological analyst. RN and microbiological analyst aware of transport at 1630 and need for form to be completed prior to [facility] arrival. MD and RN verify report was given. SW informed Nunu at [facility] bed placement: [phone] o f transport picker/puller time, verify bed availability, provider and RN assignment. Chart Review: Pt is a 56 yo who is homeless and has [place] Medicaid. Order for readmi ssion risk. MD is requesting placement in a SNF or AFH. Barrier to SNF placement will be [place] and homelessness. SW also completed a HCS referral and faxed to [facility]. SW requested help with finding permanent placement for pt due to his readmission risk and TBI. SW also faxed referral to [facility] respite bed as well for placement. Mitali Cooper RN - 03/18/2017 3:21 PM PSTSJOSE-CM; SLRI team signing off case. Per MD notes patient transferring to [facility].Electronically signed b y: Mitali Robertson RN 03/18/2017 [...] completed a HCS referral and faxed to [facility]. SW requested help with finding permanent placement for pt due to his readmission risk and TBI. SW also faxed referral to [facility] resp[facility] bed as well for placement. Allison, Mitali Casarez RN - 03/18/2017 12:01 PM PSTALEXEI telehealth case manager received referral. Clinical information reviewed. Will discuss with Dr. Hawkins and follow progress for discharge recommendations.Electronically signed by: Mitali Robertson RN 03/18/2017 12:01 Kamini Mendez MD - 03/17/2017 2:19 PM PSTFormatting of this note might be different from the orig inal. 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 The patient was hospitalized for one month at [facility]. He underwent decompressive craniectomy and was discharged without a bone flap in place. He has a 3 month follow-up for cranioplasty. Since his discharge on 03/[address] [facility] the patient has been in and out of emergency departments [facility] as well as [facility]. His discharge is usually to the local snf because the patient is h omeless. He has a history of alcohol abuse and per records most recently drank 3 days ago. He presents to the emergency department here at [facility] on 05/15 after being seen at [facility] on the same day. His chief complaint was headache, dizziness and weakness. He suffered a fall in the emergency department here at [facility]. In the ED he was found [...] flat (pt becomes increasingly unresponsive). Neurosurgery at [facility](dr Horner ) was consulted, and feels [...] to discuss pt transfer b ack to [facility], though pt presented to our ER only hours after discharging from [facility] on 03/15/17. I feel patient was unsafely discharged from [facility], as he he has been unable to even stand independently since admission to our ER. Will discuss further with administration on Saturday. Plan: keep the head of bed elevated. Traumatic brain injury Admission at [facility] from 02/05-03/08, and again 03/13 to 03/15 after erick [facility] bouncebacks in [facility]. Status post decompressive craniectomy. Discharged [...] not done well with discharge to the snf given as he is unable to take [...] Line - Single Lumen 03/15/171953 Right Forearm agkc-tvy-bhgpmp catheter sys tem 20 gauge 1 day [...] this chart may have been created with [employer] voice recognition software. 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 The patient was hospitalized for one month at [facility]. He underwent decompressive craniectomy and was discharged without a bone flap in place. He has a 3 month follow-up for cranioplasty. Since his discharge on 03/[address] [facility] the patient has been in and out of emergency departments [facility] as well as [facility]. His discharge is usually to the local snf because the patient is h omeless. He has a history of alcohol abuse and per records most recently drank 3 days ago. He presents to the emergency department here at [facility] on 05/15 after being seen at [facility] on the same day. His chief complaint was headache, dizziness and weakness. He suffered a fall in the emergency department here at [facility]. In the ED he was found [...] lying flat(pt becomes increasingly unresponsive). Neurosurgery at [facility](dr Horner) was consulted, and feels pt [...] to discuss pt transfer ba arnold to [facility], though pt presented to our ER only hours after discharging from [facility] o n 03/15/17. Plan: keep the head of bed elevated. Traumatic brain injury Admission at [facility] from 02/05-03/08 Status post decompressive craniectomy. [...] not done well with discharge to the snf given as he is unable to take [...] our ER hours after being d/c from [facility](where he has been hospitalized for a month since feb 05, and all his care for his has been through their facility. I have spent a total of 2 hours and 30 min in sigifredo luation of patient(noon until 2:30pm), going through [facility] records, multiple phone calls to 2 separate neurosurgeons at both [facility] and [facility], a [facility] hospitalist, bed contro l at [facility] and [facility], rehab/pre vocational counselor nursing home social worker in regards to pt admission and complex [...] Line - Single Lumen 03/15/171953 Right Forearm ljbs-alv-ittjgf catheter sys tem 20 gauge less than [...] where these substitutions have occurred Dylan Shelley, Healthcare Translator - 03/16/2017 12:48 PM PSTFormatting of this [...] medications when he is in a hospital. INSURANCE AGENCY MANAGER list reflects current med list from [facility]. Patient s prior to admit medications and over the counter (OTC) medications/herbal supple ments list obtained from interview with patient, [facility], and [place] Prescription Monitoring John larios. Total # of Prior to Admission Meds: 4 Noted Medication Discrepancies or Medication-related Issues Dosage change: none Medication added: none Removed therapy: nicotine patch (pt states he only uses when he's in the hospital) INSURANCE AGENCY MANAGER Medications Prior to Admission medications Medication Sig [...] [] [] Tdap [] [x] [] [] INSURANCE AGENCY MANAGER Med List Sources Medications reported by the [...] [place] Prescription Monitoring Program [x] Other sources: [facility] Medication history performed and electronically signed by PRICILLA WILKINS, Pharmacy Lorraine h 03/16/2017 12:48 Associated attestation - Ayah Harvey PharmKameron - 03/16/2017 1:07 PM PSTReviewed INSURANCE AGENCY MANAGER me d list changes and agree with discrepancies noted by ophthalmology technician. Electronically signed by: Merle Martinez PharmD 03/16/2017 13:07 Leif Horner MD - 03/16/2017 7:49 AM PSTDiscussed patient and reviewed films. Leon darnell had right craniectomy about 1 month ago. Right edema now resolved but CT shows shift to l eft increased from scan of 03/09. May require replacement of bone graft. Assume this is stor ed at [facility] where surgery occurred. Suggest discussion with [facility] Staff for transfe r to that facility. Marialuisa Andre, VISUAL COORDINATOR - 03/16/2017 7:44 AM PSTDischarge Planning: Pt is a 56 yo who is [place] and has [place] Medicaid. SIGIFREDO acknowledged order for readmission risk. MD is reque sting placement in a SNF or AFH. SIGIFREDO left sticky note for MD requesting PT and OT be ordered before SNF can be pursued. Barrier to SNF placement will be Medicaid and homelessness. SIGIFREDO also completed a HCS referral and faxed to [facility]. SIGIFREDO requested help with finding permanent placement [...] being readmitted to hospital once DC to snf and therefore this may not be a [...] ANDRE[facility] | [address] | [place] [address] | | | [facility] | | | | | LABORATORY | [...] + | [facility] | [address] | [place] [address] | | | [facility] | | | | | LABORATORY | [...] + + | [facility] | [address] | [place] [address] | | | [facility] | | | | | [...] + | [facility] | [address] | [place] [address] | | | [facility] | | | | | LABORATORY | [...] + + + | Glucose | 98Comment: Ethiopian | 65 - 99 mg/dL | [facility] | | | | [employer] Association | [...] + + | [facility] | [address] | [place] [address] | | | [facility] | | | | | LABORATORY | | | | + + + + + Hemoglobin A1C (03/18/2017 4:17 AM PST) + + + + + + | Component | Value | Ref Range | Performed | Pathologist | | | | | At | Signature | + + + + + + | Hemoglobin | 5.2Comment: The Ethiopian | 4.3 - 6.1 % | [facility] [...] + + | [facility] | [address] | [place] [address] | | | [facility] | | | | | [...] + | [facility] | [address] | [place] [address] | | | [facility] | | | | | [...] + | [facility] | [address] | [place] [address] | | | [facility] | [...] + + | Glucose | 198 (H)Comment: Ethiopian | 65 - 99 mg/dL | [facility] [...] + + | [facility] | [address] | [place] [address] | | | [facility] | [...] + + | [facility] | [address] | [place] [address] | | | [facility] | | | | | LABORATORY | [...] + + | [facility] | [address] | [place] [address] | | | [facility] | [...] + + | [facility] | [address] | [place] [address] | | | [facility] | | | | | [...] - 1.030 | [facility] | | | [place] | | | [facility] | | | [...] + + | [facility] | [address] | [place] [address] | | | [facility] | | | | | LABORATORY | [...] + + | [facility] | [address] | [place] [address] | | | [facility] | | | | | LABORATORY | [...] + | [facility] | [address] | [place] [address] | | | [facility] | | | | | LABORATORY | [...] + + | Glucose | 125 (H)Comment: Ethiopian | 65 - 99 mg/dL | [facility] [...] (L) | 8 - 25 mg/dL | [facility] | | | | | | [facility] [...] + | [facility] | [address] | [place] [address] | | | [facility] | | | | | LABORATORY | [...] + | [facility] | [address] | [place] [address] | | | [facility] | | | | | [...] | | | | | | use Blackduck 10/325 if ordered. If | | | [...] | | | | | | use Blackduck 10/325 if ordered. If | | | [...] scheduled: AC, | | | NPO, Daytime 5924-5390 Use NIGHT | | | DOSE for doses scheduled: | | | HS, 3AM, Nighttime 7971-8565 Only | | | for use with [...]
--- OUTSIDE RECORDS SUMMARY | ~2019-08-22 | XMS | Encounter Summary ---
Demographics + + + | Address | [address] | | | [place] [address] | + + + | Home Phone | | + + + | Preferred Language | Unknown | + + + | Marital Status | Single | + + + | Adventist Affiliation | Unknown | + + + | Race | Unknown | + + + | Ethnic Group | Unknown | + + + Author + + + | Author | [facility] | | | and [place] | + + + | Organization | [facility] | | | and [place] [...] Team Providers + +------+ + | Care Oral Pathologist Name | Role | Phone | + [...] abuse; | | 03/18/ | | [address] [place], [place] | [place] [address] | Traumatic brain | | 2017 | | [address] | [phone] | injury, without loss | | | | [phone] | | of consciousness, | | | | | Kamini Garcia | subsequent | | | | | MD José Manuel [address] | encounter; Fall, | | | | | [address] | initial encounter; | | | | | [place] [address] | Homelessness; | | | | | [phone] | Nicotine abuse; | | | | | | Hyperglycemia; | | | | | Piedad Ruiz MD | Hypokalemia | | | | | [address] | | | | | | Floor [place] | | | | | | [address] | | | | | | | [...] might be di fferent from the original. [facility] FACULTY HOSPITALIST DISCHARGE SUMMARY PATIENT NAME: [...] UP: No follow-up provider specified. 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 The patient was hospitalized for one month at [facility]. He underwent decompressive craniectomy and was discharged without a bone flap in place. He has a 3 month follow-up for cranioplasty. Since his discharge on 03/08 from [facility] the patient has been in and out of emergency departments [facility] as well as [facility]. He was transferred back to [facility] on 03/13, then discharged to [facility] on 03/15. He presented to the emergency department at [facility] on 03/15 after being discharged from [facility] on the same day. His chief complaint was headache, dizziness and weakness. He suffered a fall in the emergency department here a t [facility] facility. In the ED he [...] was made for patient to return to [facility] for t reatment under guidance of his neurosurgeon and physicians/staff familiar to his case. Pt wi ll go to dr Guerrero on hospitalist team, with consultation from his neurosurgeon, dr Breaux. D iscussed case with Dr Jatinder Kemp, hospitalst at [facility]. DISCHARGE DIAGNOSES: Active Hospital Problems Diagnosis [...] this chart may have been created with [employer] voice recognition software. Occasi onal wrong-word [...] transport 1630. PCS form in soft chart. [facility], room 1126 Intervention: Arranged [facility] stretcher transport for 1630, completed and placed in soft chart . Requested MD complete Interhospital Transfer Form. MD completed EMTALA Form 2016 form in E PIC which requires RN to complete as well, provider not able to complete Interhospital Trans khari Form, states EMTALA 2016 form is sufficient. SW discussed with RN and neurosurgery research director. RN and neurosurgery research director aware of transport at 1630 and need for form to be completed prior to [facility] arrival. MD and RN verify report was given. SW informed Nunu at [facility] bed placement: [phone] o f transport picking supervisor time, verify bed availability, provider and RN assignment. Chart Review: Pt is a 56 yo who is homeless and has [place] Medicaid. Order for readmi ssion risk. MD is requesting placement in a SNF or AFH. Barrier to SNF placement will be [place] and homelessness. SW also completed a HCS referral and faxed to [facility]. SW requested help with finding permanent placement for pt due to his readmission risk and TBI. SW also faxed referral to [facility] respite bed as well for placement. Mitali Cooper RN - 03/18/2017 3:21 PM PSTSJOSE-CM; SLRI team signing off case. Per MD notes patient transferring to [facility].Electronically signed b y: Mitali Robertson RN 03/18/2017 [...] completed a HCS referral and faxed to [facility]. SW requested help with finding permanent placement for pt due to his readmission risk and TBI. SW also faxed referral to [facility] respite bed as well for placement. Allison, Mitali Casarez RN - 03/18/2017 12:01 PM PSTALEXEI transplant case manager received referral. Clinical information reviewed. Will discuss with Dr. Hawkins and follow progress for discharge recommendations.Electronically signed by: Mitali Robertson RN 03/18/2017 12:01 Kamini Mendez MD - 03/17/2017 2:19 PM PSTFormatting of this note might be different from the orig inal. 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 The patient was hospitalized for one month at [facility]. He underwent decompressive craniectomy and was discharged without a bone flap in place. He has a 3 month follow-up for cranioplasty. Since his discharge on 03/08 from [facility] the patient has been in and out of emergency departments [facility] as well as [facility]. His discharge is usually to the local skilled nursing because the patient is h omeless. He has a history of alcohol abuse and per records most recently drank 3 days ago. He presents to the emergency department here at [facility] on 05/15 after being seen at [facility] on the same day. His chief complaint was headache, dizziness and weakness. He suffered a fall in the emergency department here at [facility]. In the ED he was found to [...] flat (pt becomes increasingly unresponsive). Neurosurgery at [facility](dr Horner ) was consulted, and feels pt [...] to discuss pt transfer b ack to [facility], though pt presented to our ER only hours after discharging from [facility] on 03/15/17. I feel patient was unsafely discharged from [facility], as he he has been unable to even stand independently since admission to our ER. Will discuss further with administration on Saturday. Plan: keep the head of bed elevated. Traumatic brain injury Admission at [facility] from 02/05-03/08, and again 03/13 to 03/15 after erick [facility] bouncebacks in [facility]. Status post decompressive craniectomy. Discharged without bone [...] not done well with discharge to the skilled nursing given as he is unable to take [...] Line - Single Lumen 03/15/171953 Right Forearm rmdn-jxs-iodurm catheter sys tem 20 gauge 1 day [...] this chart may have been created with [employer] voice recognition software. 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 The patient was hospitalized for one month at [facility]. He underwent decompressive craniectomy and was discharged without a bone flap in place. He has a 3 month follow-up for cranioplasty. Since his discharge on 03/08 from [facility] the patient has been in and out of emergency departments [facility] as well as [facility]. His discharge is usually to the local skilled nursing because the patient is h omeless. He has a history of alcohol abuse and per records most recently drank 3 days ago. He presents to the emergency department here at [facility] on 05/15 after being seen at [facility] on the same day. His chief complaint was headache, dizziness and weakness. He suffered a fall in the emergency department here at [facility]. In the ED he was found to [...] lying flat(pt becomes increasingly unresponsive). Neurosurgery at [facility](dr Horner) was consulted, and feels pt needs [...] to discuss pt transfer ba arnold to [facility], though pt presented to our ER only hours after discharging from [facility] o n 03/15/17. Plan: keep the head of bed elevated. Traumatic brain injury Admission at [facility] from 02/05-03/08 Status post decompressive [...] not done well with discharge to the skilled nursing given as he is unable to take [...] our ER hours after being d/c from [facility](where he has been hospitalized for a month since feb 05, and all his care for his has been through their facility. I have spent a total of 2 hours and 30 min in sigifredo luation of patient(noon until 2:30pm), going through [facility] records, multiple phone calls to 2 separate neurosurgeons at both [facility] and [facility], a [facility] hospitalist, bed contro l at [facility] and [facility], air support control officer director nursing service in regards to pt admission and complex [...] Line - Single Lumen 03/15/171953 Right Forearm tqjk-mjd-jwikda catheter sys tem 20 gauge less than [...] where these substitutions have occurred Dylan Shelley, Section Leader Screen Printing - 03/16/2017 12:48 PM PSTFormatting of this [...] medications when he is in a hospital. FEATHER MIXER list reflects current med list from [facility]. Patient s prior to admit medications and over the counter (OTC) medications/herbal supple ments list obtained from interview with patient, [facility], and [place] Prescription Monitoring John larios. Total # of Prior to Admission Meds: 4 Noted Medication Discrepancies or Medication-related Issues Dosage change: none Medication added: none Removed therapy: nicotine patch (pt states he only uses when he's in the hospital) FEATHER MIXER Medications Prior to Admission medications Medication Sig [...] [] [] Tdap [] [x] [] [] FEATHER MIXER Med List Sources Medications reported by the [...] [place] Prescription Monitoring Program [x] Other sources: [facility] Medication history performed and electronically signed by PRICILLA WILKINS, Pharmacy Lorraine h 03/16/2017 12:48 Associated attestation - Ayah Harvey PharmKameron - 03/16/2017 1:07 PM PSTReviewed FEATHER MIXER me d list changes and agree with discrepancies noted by wafer fabrication technician. Electronically signed by: Merle Martinez PharmD 03/16/2017 13:07 Leif Horner MD - 03/16/2017 7:49 AM PSTDiscussed patient and reviewed films. Leon darnell had right craniectomy about 1 month ago. Right edema now resolved but CT shows shift to l eft increased from scan of 03/09. May require replacement of bone graft. Assume this is stor ed at [facility] where surgery occurred. Suggest discussion with [facility] Staff for transfe r to that facility. Marialuisa Andre, PLATE GRINDER - 03/16/2017 7:44 AM PSTDischarge Planning: Pt is a 56 yo who is [place] and has [place] Medicaid. SIGIFREDO acknowledged order for readmission risk. MD is reque sting placement in a SNF or AFH. SIGIFREDO left sticky note for MD requesting PT and OT be ordered before SNF can be pursued. Barrier to SNF placement will be Medicaid and homelessness. SIGIFREDO also completed a HCS referral and faxed to [facility]. SIGIFREDO requested help with finding permanent [...] being readmitted to hospital once DC to skilled nursing and therefore this may not be a [...] ANDREWS | [address] | [place] [address] | | | [facility] | | | | | LABORATORY [...] [address] | [place] [address] | | | [facility] | | | | | LABORATORY [...] + + | NIALL ANDREWS | [address] | [place] [address] | | | HEART [facility] | | | | | [...] [address] | [place] [address] | | | [facility] | | | | | LABORATORY [...] + + + | Glucose | 98Comment: Tanzanian | 65 - 99 mg/dL | [facility] | | | | Diabetes Association | [...] + + | NIALL ANDREWS | [address] | [place] [address] | | | [facility] | | | | | LABORATORY | | | | + + + + + Hemoglobin A1C (03/18/2017 4:17 AM PST) + + + + + + | Component | Value | Ref Range | Performed | Pathologist | | | | | At | Signature | + + + + + + | Hemoglobin | 5.2Comment: The Tanzanian | 4.3 - 6.1 % | [facility] [...] + + | [facility] | [address] | [place] [address] | | | [facility] | | | | | [...] [address] | [place] [address] | | | [facility] | | | | | [...] [address] | [place] [address] | | | HEART MEDICAL CENTER | [...] + + | Glucose | 198 (H)Comment: Tanzanian | 65 - 99 mg/dL | [facility] [...] + + | NIALL ANDREWS | [address] | [place] [address] | | | HEART MEDICAL CENTER | [...] + + | NIALL ANDREWS | [address] | [place] [address] | | | [facility] | | | | | LABORATORY [...] + + | [facility] | [address] | [place] [address] | | | HEART MEDICAL CENTER | [...] + + | [facility] | [address] | [place] [address] | | | [facility] | | | | | [...] - 1.030 | [facility] | | | [place] | | | [facility] | | | [...] + + | NIALL ANDREWS | [address] | [place] [address] | | | [facility] | | | | | LABORATORY [...] + + | NIALL ANDREWS | [address] | [place] [address] | | | [facility] | | | | | LABORATORY [...] [address] | [place] [address] | | | [facility] | | | | | LABORATORY [...] + + | Glucose | 125 (H)Comment: Tanzanian | 65 - 99 mg/dL | [facility] [...] (L) | 8 - 25 mg/dL | [facility] | | | | | | SACRED [...] [address] | [place] [address] | | | [facility] | | | | | LABORATORY [...] [address] | [place] [address] | | | HEART [facility] | | | | | [...] | | | | | | use [place] 10/325 if ordered. If | | | [...] | | | | | | use [place] 10/325 if ordered. If | | | [...] scheduled: AC, | | | NPO, Daytime 0414-7233 Use NIGHT | | | DOSE for doses scheduled: | | | HS, 3AM, Nighttime 2569-0403 Only | | | for use with [...]
--- OUTSIDE RECORDS SUMMARY | ~2019-08-22 | XMS | Encounter Summary ---
Demographics + + + | Address | [address] | | | [place] [address] | + + + | Home Phone [...] Author + + + | Author | [facility] | + + + | Organization | [facility] [employer] [facility] | [...] Team Providers + +------+ + | Care Cellular Tower Climber Name | Role | Phone | + [...] Pharmacy | | | | | | [address] | | | | | | [address] [place], [place] | | | | | | [address] | | | | | | [phone] | | | +--------+ + + + [...]
--- OUTSIDE RECORDS SUMMARY | ~2019-08-22 | XMS | Encounter Summary ---
Demographics + + + | Address | [address] | | | [place] [address] | + + + | Home Phone [...] + | Author | [facility] [employer] [facility] | + + + | Organization | [facility] [employer] [facility] [...] Team Providers + +------+ + | Care Investment Fund Manager Name | Role | Phone | [...] | | | | | Procedures | [place], [place] | [place] | | | | | [place]QUEST [place] | [address] | [address] | | | | | SURGERY | Phone: | Phone: | | | | | FURNITURE UPHOLSTERER | [phone] | [phone] | | | | | [place] REPLACE | Fax: | Fax: | | | | | SKULL | [phone] | [phone] | | | | | PLATE/FLAP | | | | | | | FL REPAIR | | | | | | | SKULL | | | | | | | DEFECT,UP TO | | | | | | | 5CM [place] | | | | | | | REPAIR SKULL | | | | | | | DEFECT,>5CM | | | | | | | [place] | | | | | | | [...] + + + + | 10/31/ | Clockmaker | [facility] at | Magdiel Stock MD | Skull defect | | 2018 | | [facility] [address] | [address] | (Primary Dx) | | | | [facility] for | [facility], | | | | | Health and Healing, | [place] [address] | | | | | [facility] | [phone] | | | | | Floor [place], [place] | | | | | | [address] | | | | | | [phone] | | | +--------+ + + + [...]
--- OUTSIDE RECORDS SUMMARY | ~2019-08-22 | XMS | Encounter Summary ---
Demographics + + + | Address | [address] | | | [place] [address] | + + + | Home Phone [...] + | Author | [facility] [facility] | + + + | Organization | [facility] [employer] [facility] | + [...] Team Providers + +------+ + | Care Vest Maker Name | Role | Phone | [...] HOSPITAL | | | | | | [address] | | | | | | [place] | | | | | | [facility], [address] [place] [address] | | | | | | [place], [place] | | | | | | [address] | | | | | | [phone] | | | +--------+ + + + [...]
--- OUTSIDE RECORDS SUMMARY | ~2019-08-22 | XMS | Encounter Summary ---
Demographics + + + | Address | [address] | | | [place] [address] | + + + | Home Phone [...] + + + | Author | [facility] [employer] [facility] | + + + | Organization | [facility] [employer] [facility] | + + + | Address | Unknown | + + + | Phone | Unavailable | + + + Support + + +---------+ + | Name | Relationship | Address | Phone | + + +---------+ + | Kaylie Baig | ECON | Unknown | | + + +---------+ + Care Team Providers + +------+ + | Care Shellfish Meat Separator Operator Name | Role | Phone | [...] + + + + | 09/15/ | Traffic Sergeant | Neurosurgery at | Dallin Bourgeois, | Other closed | | 2018 | | [facility] [address] | MD [address] | nondisplaced | | | | [facility] for | [address] | fracture of seventh | | | | Health and Healing, | [place], [place] | cervical vertebra | | | | Building , 8th | [address] | with routine | | | | floor [place], [place] | [phone] | healing, subsequent | | | | [address] | | encounter (Primary | | | | [phone] | | Dx) | +--------+ + + [...]
--- OUTSIDE RECORDS SUMMARY | ~2019-08-22 | XMS | Encounter Summary ---
Demographics + + + | Address | [address] | | | [place] [address] | + + + | Home Phone [...] + | Author | [facility] [employer] [facility] | + + + | Organization | [facility] [employer] [facility] | + [...] Team Providers + +------+ + | Care Fish Peddler Name | Role | Phone | + [...] floor | | | | | | [place], [place] | | | | | | [address] | | | +--------+ + + + [...]
--- OUTSIDE RECORDS SUMMARY | ~2019-08-22 | XMS | Encounter Summary ---
Demographics + + + | Address | [address] | | | [place] [address] | + + + | Home Phone [...] + + + | Author | [facility] [employer] [facility] | + + + | Organization | [facility] [employer] [facility] [...] Team Providers + +------+ + | Care Template Fitter Name | Role | Phone | [...] HOSPITAL | | | | | | [address] | | | | | | [place] | | | | | | [facility], [address] [place] [address] | | | | | | [place], [place] | | | | | | [address] | | | | | | [phone] | | | +--------+ + + + [...]
--- OUTSIDE RECORDS SUMMARY | ~2019-08-22 | XMS | Encounter Summary ---
Demographics + + + | Address | [address] | | | [place] [address] | + + + | Home Phone [...] Author + + + | Author | [facility] [employer] [facility] | + + + | Organization | [facility] [employer] [facility] | + [...] Team Providers + +------+ + | Care Wood Borer Name | Role | Phone | + [...] [place] | | | | | [facility] | [address] | | | | | Hospital Admitting | [place], [place] | | | | | Desk Located on the | [address] | | | | | 9th floor | [phone] | | | | | [place], [place] | | | | | | [address] | Joslyn Boss, | | | | | | [address] | | | | | | [address] | | | | | | [place], [place] | | | | | | [address] | | | | | | [phone] | | | | | | | [...]
--- OUTSIDE RECORDS SUMMARY | ~2019-08-22 | XMS | Encounter Summary ---
Demographics + + + | Address | [address] | | | [place] [address] | + + + | Home Phone [...] Author | [facility] [employer] [facility] | + + + | Organization | [facility] [employer] [facility] | + [...] Team Providers + +------+ + | Care Splicing Machine Operator Name | Role | Phone [...] | | | | | Procedures | [place], [place] | [place] | | | | | REQUEST TO | [address] | [address] | | | | | SURGERY | Phone: | Phone: | | | | | CIVIL DEFENSE DIRECTOR | [phone] | [phone] | | | | | [place] REPLACE | Fax: | Fax: | | | | | SKULL | [phone] | [phone] | | | | | PLATE/FLAP | [...] + + + + | 10/31/ | Glove Stitcher | [facility] at | Magdiel Stock MD | Skull defect | | 2018 | | [facility] [address] | [address] | (Primary Dx) | | | | [facility] for | [facility], | | | | | Health and Healing, | [place] [address] | | | | | [facility] | [phone] | | | | | Floor [place], [place] | | | | | | [address] | | | | | | [phone] | | | +--------+ + + + [...]
--- OUTSIDE RECORDS SUMMARY | ~2019-08-22 | XMS | Encounter Summary ---
Demographics + + + | Address | [address] | | | [place] [address] | + + + | Home Phone [...] + | Author | [facility] [facility] | + + + | Organization | [facility] [employer] [facility] | + [...] Team Providers + +------+ + | Care Continuous Washer Operator Name | Role | Phone | [...] Pharmacy | | | | | | [address] | | | | | | [address] [place], [place] | | | | | | [address] | | | | | | [phone] | | | +--------+ + + + [...]
--- OUTSIDE RECORDS SUMMARY | ~2019-08-22 | XMS | Encounter Summary ---
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 [facility] [place] [address] [place] [address] [phone] Associated attestation - Chaz Munoz MD - 10/07/2017 11:15 AM PDTI saw and examined th e patient today with KESHAWN Martin, and agree with the assessement and plan a s outlined in her note. Will consider changing to bolus TF. Plan Gabriel-oconnor tube next week. Chaz Munoz MD, FACS Plastics Nurse, Trauma, Critical Care and Acute Care [...] p atient unable to come out fo BROOMCORN THRESHER for now Resolved or chronic issues/Plan: #Previous [...] issues, including restraints. Venita Pruitt PA-[place] [phone] [facility] [address] [place] [address] Associated attestation - Em Cunningham MD - 10/17/2017 10:13 AM PDTI was present and rou nded with the Advanced Practice Provider today . I interviewed and examined the patient. I reviewed the history, as documented today. I agree with the ASHLEY assessment and plan. TBI has remained stable. On lovenox. Will continue haldol per psych.. EM CUNNINGHAM MD [facility] [address] [place] [address] Venita Pruitt PA-C - 10/05/2017 8:38 AM [...] p atient unable to come out fo BROOMCORN THRESHER for now Resolved or chronic issues/Plan: #Previous [...] issues, including restraints. Venita Pruitt PA-C [place] [phone] [facility] [address] [place] [phone] Associated attestation - Shlomo Rosenthal MD - 10/06/2017 7:28 AM PDTFormatting of this note m ight be different from the original. I saw and examined Berlin Temple ([id number]) with the TRAUMA team on 10/05/2017. I [...] incen tive spirometry for pulmonary toliet. manager retirement for disposition planning and placement. Shlomo Rosenthal MD Gore Inserter Division of Trauma and Critical Care [facility], Venita Maciel PA-C - 10/04/2017 6:36 [...] (baseline from previous TBI ) Neck: in [place] collar Respiratory: CTA b.l CV: RRR GI: [...] p atient unable to come out fo BROOMCORN THRESHER for now Resolved or chronic issues/Plan: #Previous [...] issues, including restraints. Venita Pruitt PA-C [place] [phone] [facility] [place] [address] [facility] [place] [facility] [phone] Associated attestation - Fidelina Shields MD - [...] and only enteral access. Fidelina Shields MD Plastics Nurse Division of Trauma, Critical Care and Acute Care Surgery Office: [phone] Pager: [phone] Leonor Torres ACNP - 10/03/2017 3:13 PM [...] (baseline from previous TBI ) Neck: in [place] collar Respiratory: CTA bilaterally, no distress CV: [...] p atient unable to come out fo BROOMCORN THRESHER for now Resolved or chronic issues/Plan: Previous [...] by patient, but wound remains duke n/dry/intact. Melcroft removed 09/17. #Left hemothorax Chest tube placed [...] PDTAttending: I saw and examined Berlin Temple ([id number]) with CB Hair on morning rounds 10/03 and agree with the assessment and plan as outlined in this note and participated in the planning of care. Mental status is slightly better, remains sedated but he is interactive and at least somewh at oriented. Enteral nutrition advancing and, as approaches goal, will turn TPN off. Place ment remains a significant issue. Fidelina Shields MD Plastics Nurse Division of Trauma, Critical Care and Acute Care Surgery Office: [phone] Pager: [phone] July Banegas PA-C - 10/03/2017 12:58 PM [...] the C-collar when in bed then the BROOMCORN THRESHER when out of bed until 12/01/17. JULY BANEGAS PA-C [facility] [address] [place] [address] Associated attestation - Magdiel Stock MD - 10/04/2017 6:02 PM PDTI performed a history a nd physical examination of the patient and discussed the management with the advanced practi ce provider, July Banegas PA-C. I reviewed the advanced practice provider's note and agree w ith the plan of care as documented. Continue cervical collar and BROOMCORN THRESHER for 3 months to ensure fracture healing and prevent development of post-fracture cervical kyphosis. Magdiel Stock MD Plastics Nurse Department of Neurological Surgery [facility] [place] Sarayjeffamalia Sherine Madiha, AGACNP - 10/02/2017 12:54 [...] (baseline from previous TBI ) Neck: in [place] collar Respiratory: CTA bilaterally, lungs symmetrical, equal chest wall rise, no retractions CV: RRR GI: non tender, soft, active BS, last BM 09/30 : Patient voiding without difficulty Extremities: no peripheral edema, wiggles toes and toes pink and well perfused Musculoskeletal: 5/5 modular home crew member strength on right, 3/5 modular home crew member strength on left FEN: on TPN, transitioning [...] AMS & delirium - numerous evaluations by GENERATOR MECHANIC with trials of PO - now s/p [...] . - C-collar at all times, use BROOMCORN THRESHER when OOB - Follow-up with Neurosurgery on [...] will decrease [place]g [phone] Associated attestation - Fidelina Shields MD - 10/02/2017 4:40 PM PDTAttending: I saw and examined Berlin Temple ([id number]) with KESHAWN Alexander on mornin g rounds [...] drawn back to midline position. May need skilled nursing enteral access , but is ~4 weeks s/p damage control laparotomy and risk is higher now than it will be in 7- 14 days and if swallow is not improving then will place prior to DC Fidelina Shields MD Plastics Nurse Division of Trauma, Critical Care and Acute Care Surgery Office: [phone] Pager: [phone] Sherine Sarmiento AGACNP - 10/01/2017 7:27 AM [...] (baseline from previous TBI ) Neck: in [place] collar Respiratory: CTA bilaterally, lungs symmetrical, equal chest wall rise, no retractions CV: RRR GI: non tender, soft, active BS, last BM 09/30 : Patient voiding without difficulty Extremities: no peripheral edema, wiggles toes and toes pink and well perfused Musculoskeletal: 5/5 modular home crew member strength on right, 3/5 modular home crew member strength on left FEN: on TPN Heme/ID: [...] AMS & delirium - numerous evaluations by GENERATOR MECHANIC with trials of PO - now s/p modified barium swallow x2 which indicates aspiration - continue NPO - GENERATOR MECHANIC reports that patient working on tongue strength [...] . - C-collar at all times, use BROOMCORN THRESHER when OOB - Follow-up with Neurosurgery on 10/21 with repeat X-rays #Blunt abdominal trauma #Splenic laceration S/p laparotomies x2. Fascia closed 09/02 Wound vac removed by patient, but wound remains duke n/dry/intact. Melcroft removed 09/17. #Left hemothorax Chest tube placed [...] with trauma team and sister. Sherine Sarmiento, [facility] [place]g [phone] Associated attestation - Fidelina Shields MD - 10/02/2017 4:40 PM PDTAttending: I saw and examined Berlin Temple ([id number]) with KESHAWN Alexander on mornin g rounds 10/01/17 and agree with the assessment and plan as outlined in this note and partic ipated in the planning of care. Will trial DHT placement today, CT head unchanged. Suspect somnolence is medication side ef fect and, if persistent, may need to wean antipsychotic doses. Fidelina Shields MD Plastics Nurse Division of Trauma, Critical Care and Acute Care Surgery Office: [phone] Pager: [phone] Christian Kelley PA-C - 09/30/2017 12:21 PM [...] Fixed and dilated on left Neck: in [place] collar Respiratory: CTA bilaterally, lungs symmetrical, equal chest wall rise, no retractions CV: RRR GI: non tender, soft, active BS, last BM 09/30 : Patient voiding without difficulty Extremities: no peripheral edema, wiggles toes and toes pink and well perfused Musculoskeletal: 5/5 modular home crew member strength on right, 3/5 modular home crew member strength on left FEN: on TPN Heme/ID: [...] AMS & delirium - numerous evaluations by GENERATOR MECHANIC with trials of PO - now s/p modified barium swallow x2 which indicates aspiration - continue NPO - GENERATOR MECHANIC reports that patient working on tongue strength [...] . - C-collar at all times, use BROOMCORN THRESHER when OOB - Follow-up with Neurosurgery on 10/21 with repeat X-rays #Blunt abdominal trauma #Splenic laceration S/p laparotomies x2. Fascia closed 09/02 Wound vac removed by patient, but wound remains duke n/dry/intact. Melcroft removed 09/17. #Left hemothorax Chest tube placed [...] PDTAttending: I saw and examined Berlin Temple ([id number]) with Christian Kelley PA-C on morning rounds 09/30 and agree with the assessment and plan as outlined in this note and participated in the planning of care. Mentally slower this morning, but non-focal. Received haldol overnight for sleep. Repeat head CT was unchanged so suspect etiology of slowed responsiveness is the antipsychotic dose . GENERATOR MECHANIC believes that, once collar off, may be able to take PO more effectively and thus will hold off on surgical feeding access. TPN is a temporary solution and if patient remains kaye nable will trial DHT tomorrow. Working with psychiatry for medication recommendations. Fidelina Shields MD Plastics Nurse Division of Trauma, Critical Care and Acute Care Surgery Office: [phone] Pager: [phone] July Banegas PA-C - 09/30/2017 8:23 AM PDTBrief Neurosurgery Wound Check: Wound is dry, without erythema, not fluctuant. No acute swelling. Nylon in place. Will plan to follow peripherally for wound checks and remove nylons on 10/09. JULY BANEGAS PA-C [facility] [address] [place] [address] Christian Begum PA-C - 09/29/2017 7:15 AM [...] and EOMs intact to exam Neck: in [place] collar Respiratory: CTA bilaterally, lungs symmetrical, equal [...] AMS & delirium - numerous evaluations by GENERATOR MECHANIC with trials of PO - now s/p [...] . - C-collar at all times, use BROOMCORN THRESHER when OOB - Follow-up with Neurosurgery on [...] PDTAttending: I saw and examined Berlin Temple ([id number]) with Christian Kelley PA-C on morning rounds 09/29 and agree with the assessment and plan as outlined in this note and participated in the planning of care. Late entry for 09/29/17. Persistent alterations in conscious and dysphagia. Hopefully with ongoing speech therapy a nd when clear to take c-collar off, will improve ability to take PO. While TPN is not an opt imal skilled nursing strategy, would prefer not to place surgical feeding tube if possible given r elatively recent damage control laparotomy and high risk of Mr. Temple pulling it out. Have tried DHT several times and it seems to worsen delirium and he pulls it out frequently. Tit ration of haldol in conjunction with psychiatry. Fidelina Shields MD Plastics Nurse Division of Trauma, Critical Care and Acute Care Surgery Office: [phone] Pager: [phone] Christian Kelley PA-C - 09/28/2017 1:01 PM [...] he said, who, ariel? And then the INFANT NANNY helped him make a call to her. [...] and EOMs intact to exam Neck: in [place] collar Respiratory: CTA bilaterally, lungs symmetrical, equal [...] very agitated today. - EKG today with Henry QTc calculated to be 428 - optimize [...] AMS & delirium - numerous evaluations by GENERATOR MECHANIC with trials of PO - now s/p [...] . - C-collar at all times, use BROOMCORN THRESHER when OOB - Follow-up with Neurosurgery on [...] and examined th e patient today with Chrisitan Kelley PA-C, and agree with the assessement and plan as outlined in her note. See my additional note. Aggressive to staff, but able to communicate more toyoselin ySelvin Munoz MD, FACS Plastics Nurse, Trauma, Critical Care and Acute Care Surgery Chaz Munoz MD - 09/28/2017 10:13 AM PDTTrauma Staff Seen and examined this AM with team. I have concerns abotu behaviour, as he is consistently threatening RN and ancillary staff, even attempting swings. Behavior seems worse at night. I would favor increasing night time Haldol dose, and following EKGs. Chaz Munoz MD, FACS Plastics Nurse, Trauma, Critical Care and Acute Care [...] Dallin Bourgeois MD Neurosurgery PGY1 | Pager #[phone] Christian Begum PA-C - 09/27/2017 7:31 AM [...] able to have a linear conversation briefly GENERATOR MECHANIC requesting repeat barium swallow Current meds: I [...] incision healing , suture c/d/I Neck: in BROOMCORN THRESHER Respiratory: unlabored on room air, lungs symmetrical, [...] AMS & delirium - numerous evaluations by GENERATOR MECHANIC with trials of PO - now s/p [...] . - C-collar at all times, use BROOMCORN THRESHER when OOB - Follow-up with Neurosurgery on 10/21 with repeat X-rays #Blunt abdominal trauma #Splenic laceration S/p laparotomies x2. Fascia closed 09/02 Wound vac removed by patient, but wound remains duke n/dry/intact. Melcroft removed 09/17. #Left hemothorax Chest tube placed [...] TPN for now. EM CUNNINGHAM MD [facility] [address] [place] [address] Christian Kelley PA-C - 09/26/2017 6:48 AM [...] posterior scalp crani incision c/d/I Neck: in [place] collar Respiratory: unlabored on room air CV: [...] AMS & delirium - numerous evaluations by GENERATOR MECHANIC with trials of PO - now s/p [...] . - C-collar at all times, use BROOMCORN THRESHER when OOB - Follow-up with Neurosurgery on 10/21 with repeat X-rays #Blunt abdominal trauma #Splenic laceration S/p laparotomies x2. Fascia closed 09/02 Wound vac removed by patient, but wound remains duke n/dry/intact. Melcroft removed 09/17. #Left hemothorax Chest tube placed [...] NPO and TPN. EM CUNNINGHAM MD [facility] [address] [place] [address] Christian Kelley PA-C - 09/25/2017 7:49 AM [...] HEENT: EOMs intact to exam Neck: in BROOMCORN THRESHER brace Respiratory: unlabored on room air CV: [...] AMS & delirium - numerous evaluations by GENERATOR MECHANIC with trials of PO - now s/p [...] . - C-collar at all times, use BROOMCORN THRESHER when OOB - Follow-up with Neurosurgery on 10/21 with repeat X-rays #Blunt abdominal trauma #Splenic laceration S/p laparotomies x2. Fascia closed 09/02 Wound vac removed by patient, but wound remains duke n/dry/intact. Melcroft removed 09/17. #Left hemothorax Chest tube placed [...] wnl. Continue TPN. EM CUNNINGHAM MD [facility] [address] [place] [address] Christian Kelley PA-C - 09/24/2017 11:07 AM [...] with agitation Having difficulty swallowing again - GENERATOR MECHANIC to re-eval and obtain barium swallow Current [...] HEENT: EOMs intact to exam Neck: in BROOMCORN THRESHER brace Respiratory: CTA bilaterally, lungs symmetrical, equal chest wall rise, no retractions CV: RRR GI: non distended, last BM 09/23 : good urine output Extremities: SCD's in place, no peripheral edema, wiggles toes and toes pink and well perfu sed Musculoskeletal: 5/5 strength in bilateral modular home crew member (but with slightly weaker on left) , [...] PRN seroquel dose QHS for insomnia/restlessness at [facility] - Haldol 5mg q12hr [...] likely 2/2 AMS & delirium - Failed GENERATOR MECHANIC eval 09/19 & 09/20, made NPO & dobhoff reinserted 09/21 but pulled overnight - Per GENERATOR MECHANIC on 09/21, ok for therapeutic pureed with [...] . - C-collar at all times, use BROOMCORN THRESHER when OOB - Follow-up with Neurosurgery on [...] abx for dehiscence. EM CUNNINGHAM MD [facility] [address] [place] [address] Ginette Campos PA-C - 09/24/2017 9:31 AM [...] 4 extremities Unable to assess drift. Motor: Combination Operator Bicep Tricep Delt R 5 5 [...] questions or concerns. Ginette Campos PA-C [facility] [address] [place] [id number] ELLGabriel Atkins AGACNP - 09/23/2017 6:32 AM [...] hiscence, draining minimal serosang fluid Neck: in BROOMCORN THRESHER brace Respiratory: unlabored on room air CV: [...] PRN seroquel dose QHS for insomnia/restlessness at [facility] - Repeat ECG 09/22 [...] likely 2/2 AMS & delirium - Failed GENERATOR MECHANIC eval 09/19 & 09/20, made NPO & dobhoff reinserted 09/21 but pulled overnight - Per GENERATOR MECHANIC on 09/21, ok for therapeutic pureed with [...] . - C-collar at all times, use BROOMCORN THRESHER when OOB - Follow-up with Neurosurgery on 10/21 with repeat X-rays #Blunt abdominal trauma #Splenic laceration S/p laparotomies x2. Fascia closed 09/02 Wound vac removed by patient, but wound remains duke n/dry/intact. Melcroft removed 09/17. #Left hemothorax Chest tube placed [...] dysphagia & delir ium improves Sherine Sarmiento, [facility] [place] [phone] Dallin Deshpande MD - 09/22/2017 8:03 AM [...] Dallin Bourgeois MD Neurosurgery PGY1 | Pager #[phone] [facility] Sherine Madiha, [facility] - 09/22/2017 6:52 AM PDTFormatting of [...] 24hr events: - Therapeutic purees initiated by GENERATOR MECHANIC yesterday - Trickle feeds via Dobbhoff, pt pulled Dobbhoff yesterday evening- not replaced - LEAD JAVASCRIPT ENGINEER called around 2130 for new left facial [...] sluggish. Slight left facial droop Neck: in [place] collar Respiratory: unlabored on room air CV: [...] PRN seroquel dose QHS for insomnia/restlessness at [facility]- - Repeat ECG 09/22 with Q Tc WNL. - Haldol 5mg q12hr prn for severe agitation #Substance abuse, concern for Alcohol withdrawal - CIWA discontinued 09/08, not scoring. - Thiamine & folate started 09/21 #Dysphagia, risk for aspiration #Protein calorie malnutirtion - likely 2/2 AMS & delirium - Failed GENERATOR MECHANIC eval 09/19 & 09/20, made NPO & dobhoff reinserted 09/21 but pulled overnight - Per GENERATOR MECHANIC on 09/21, ok for therapeutic pureed with [...] . - C-collar at all times, use BROOMCORN THRESHER when OOB - Follow-up with Neurosurgery on 10/21 with repeat X-rays #Blunt abdominal trauma #Splenic laceration S/p laparotomies x2. Fascia closed 09/02 Wound vac removed by patient, but wound remains duke n/dry/intact. Efrnandez removed 09/17. #Left hemothorax Chest tube [...] when dysphagia & delirium improves Sherine Sarmiento, [facility] [place] [phone] Associated attestation - Shiva Nieto MD,MPH - [...] Trauma, Critical Care & Acute Care Surgery [facility] [phone] Sami Black - 09/21/2017 10:25 PM PDTBrief [...] in the morning. Plan: -neuro checks; page [phone] for any decline in neurological examination -pain control -Hard C collar at all times and place BROOMCORN THRESHER prior to mobilizing OOB. Anticipated duration of Collar/BROOMCORN THRESHER is 12 weeks -repeat CT head for any new decline in neurological exam and page [phone] -NPO at midnight tonight -please hold tonight's planned dose of Lovenox -further recommendations in the morning Sami Black MD, PhD PGY-3 Resident Neurosurgery [id number] signed by Sami Black at 09/21/2017 10:50 PM [facility] - 09/21/2017 7:10 AM PDTFormatting of [...] Provena placem ent 24hr events: - Failed GENERATOR MECHANIC eval again yest morning, continued NPO - [...] reactive. Dobbhoff tube in place Neck: in [place] collar Respiratory: unlabored on room air CV: [...] likely 2/2 AMS & delirium - Failed GENERATOR MECHANIC eval 09/19 & 09/20, made NPO & dobhoff reinserted yesterday - Trickle feeds started this am at 20ml/hr, increase very slowly by 10ml every 12 hrs to go al of 75 due to hx of mesenteric hematomas and previous inability to tolerate TF - Per GENERATOR MECHANIC today, ok for therapeutic pureed with nectar [...] . - C-collar at all times, use BROOMCORN THRESHER when OOB - Follow-up with Neurosurgery on 10/21 with repeat X-rays #Blunt abdominal trauma #Splenic laceration S/p laparotomies x2. Fascia closed 09/02 Wound vac removed by patient, but wound remains duke n/dry/intact. Melcroft removed 09/17. #Left hemothorax Chest tube placed [...] & delirium [place] [phone] Associated attestation - Fidelina Shields MD - 09/21/2017 9:36 PM PDTAttending: I saw and examined Berlin Temple ([id number]) with KESHAWN Alexander on scarlett ortega rounds [...] enough to re-trial PO. Fidelina Shields MD Plastics Nurse Division of Trauma, Critical Care and Acute Care Surgery Office: [phone] Pager: [phone] Sherine Sarmiento AGACNP - 09/20/2017 7:41 AM [...] haldol given yesterday afternoon for agitation - GENERATOR MECHANIC paged to re-eval in afternoon after concern for aspiration, made NPO by GENERATOR MECHANIC - DARNELL SOLANO Current meds: I have [...] right pupil 3 and reactive Neck: in [place] collar Respiratory: unlabored on room air CV: [...] thick/pureed d iet. Made NPO yesterday by GENERATOR MECHANIC after concern for aspiration. This is likely 2/2 waxing & wan ing delirium & AMS - GENERATOR MECHANIC re-eval today recommend continue NPO d/t overt clinical signs of aspiration - Place Dobbhoff tube and restart feeds, slowly progress to goal - Stop TPN when tolerating tube feeds - GENERATOR MECHANIC will follow closely, as his AMS improves [...] . - C-collar at all times, use BROOMCORN THRESHER when OOB - Follow-up with Neurosurgery on [...] dysphagia & delirium i mproves Sherine Sarmiento, [facility] [place]g [phone] Associated attestation - Fidelina Shields MD - 09/20/2017 9:34 PM PDTAttending: I saw and examined Berlin Temple ([id number]) with KESHAWN Alexander on mornin g rounds [...] dispo planning when able. Fidelina Shields MD Plastics Nurse Division of Trauma, Critical Care and Acute Care Surgery Office: [phone] Pager: [phone] Mary Medrano MD,MPH - 09/19/2017 6:22 AM [...] downgraded from thin to thick liquids by GENERATOR MECHANIC Current meds: I have independently reviewed current [...] intact, small Right fluctuant pseudomeningocele Neck: in [place] collar Respiratory: unlabored on room air CV: [...] DHT on09/19. - Cleared for diet by GENERATOR MECHANIC, tolerating purees, 749 Calories yesterday - Restart Calorie count: if taking >700 again will be OK for full po diet, otherwise replac e DHT and restart TF - Stop TPN tomorrow regardless - Still considering repeat CT abdomen/pelvis #Dysphagia DHTreplaced overnight 09/07. TF held due to emesis and possible ileus, aspiration risk. DH T pulled overnight on 09/18 - GENERATOR MECHANIC as able Resolved or chronic issues/Plan: #BIG 3 TBI #Right synthetic cranioplasty Neurosurgery consulted. Non-operative management. Last head CT 09/12 stable. Expected pseudo meningocele. Left-sided deficits consistent with baseline. - Stat head CT for any neurologic decline #C7 bilateral lamina fractures #C6-T2 spinous process fractures Neurosurgery consulted. Non-operative management. Upright cervical X-rays completed on 09/14 . - C-collar at all times, use BROOMCORN THRESHER when OOB - Follow-up with Neurosurgery on [...] M.D., M.P.H. Neurological Surgery Resident PGY-1 Pager: [phone] Associated attestation - Fidelina Shields MD - 09/19/2017 1:36 PM PDTAttending: I saw and examined Berlin Temple ([id number]) with the residents on morning rounds 09/19/17 and agree with the assessment and plan as outlined in this note and participated in the plan aashish of care. Improving po intake, will titrate TPN. Plan to DC TPN tomorrow and transition to PO vs PO + TF depending on calorie counts. Once of restraints will begin looking for placement. Fidelina Shields MD Plastics Nurse Division of Trauma, Critical Care and Acute Care Surgery Office: [phone] Pager: [phone] Mary Medrano MD,MPH - 09/18/2017 6:17 AM [...] fluctuant pseudomeningocele,Dobhoff tubein p lace Neck: in [place] collar Respiratory: unlabored on room air CV: [...] holding TF - Cleared for diet by GENERATOR MECHANIC, tolerating small quantities of purees - Will need repeat CT A/P within 1-2 days #Hypervolemia I&O approaching even. Appears to have been auto-diuresing. - Continue to monitor urine output - Monitor electrolytes, replete prn #Dysphagia DHTreplaced overnight 09/07. TF held due to emesis and possible ileus, aspiration risk. - GENERATOR MECHANIC as able #C7 bilateral lamina fractures #C6-T2 spinous process fractures Neurosurgery consulted. Non-operative management. Upright cervical X-rays completed on 09/14 . - C-collar at all times, use BROOMCORN THRESHER when OOB - Follow-up with Neurosurgery on [...] M.D., M.P.H. Neurological Surgery Resident PGY-1 Pager: [phone] signed by Fidelina Shields MD at 09/19/2017 3:58 PM PDT Associated attestation - Fidelina Shields MD - 09/19/2017 3:58 PM PDTAttending: I saw and examined Berlin Temple ([id number]) with the residents on morning rounds 09/18/17 and agree with the assessment and plan as outlined in this note and participated in the plan aashish of care. Fidelina Shields MD Plastics Nurse Division of Trauma, Critical Care and Acute Care Surgery Office: [phone] Pager: [phone] Mary Medrano MD,MPH - 09/17/2017 6:26 AM PDTTrauma Acute Care - Progress Note Name: BERLIN TEMPEL HPI: Berlin Temple is a67 y.o. male [...] fluctuant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 Education [...] + + + + + | [facility] | [address] | [place] [address] | | | SERVICES, CORE | [address] [...] [facility] | [address] | [place] [address] | | | SERVICES, NATALEE | VILMA [...] Note | + + | Service Account, [employer] In Interface - 11/19/2017 11:26 AM PDT [...] + + | [facility] | [address] | [place], [place] | | | CARDIOLOGY | [address] | [address] | | + + + + + [...] DEPT OF | [address] | [place], [place] | | | CARDIOLOGY | [address] | [address] | | + + + + + [...] [facility] | [address] | [place] [address] | | | SERVICES, CORE | [address] [...] + + + + + | [facility] | [address] | [place] [address] | | | SERVICES, CORE | VILMA [...] - | | | | | | [place] | | + +-------+ + + + + + | Specimen | + + | Blood - Blood | | (substance) | + + + + + + + | Performing | Address | City/State/Zipcode | Phone Number | | Organization | | | | + + + + + | [facility] | [address] | [place] [address] | | | [facility] | | | | + [...] + | [facility] | [address] | [place] [address] | | | SERVICES, CORE | PARK [...] | + + + + + | [facility] | [address] | [place] [address] | | | SERVICES, CORE | [address] [...] | | | LABORATORY | | | TRISTANIAN | | | SERVICES, | | | [...] + + + + + | [facility] [employer] [facility] | [address] | [place] [address] | | | SERVICES, CORE | P[address] [...] + + + + + | [facility] | [address] | [place] [address] | | | SERVICES, NATALEE | VILMA [...] DEPT OF | [address] | [place], [place] | | | CARDIOLOGY | [address] | [address] | | + + + + + [...] DEPT OF | [address] | [place], [place] | | | CARDIOLOGY | [address] | [address] | | + + + + + [...] [facility] | [address] | [place] [address] | | | NATALEE WORTHINGTON | VILMA [...] | [facility] OF | [address] | [place], [place] | | | CARDIOLOGY | [address] | [address] | | + + + + + [...] | | | LABORATORY | | | TRISTANIAN | | | SERVICES, | | | [...] + + + + + | [facility] | [address] | [place] [address] | | | SERVICES, CORE | [address] | | | + + + + + MAGNESIUM, PLASMA (11/14/2017 4:05 AM PDT) + +-------+ + + + | Component | Value | Ref Range | Performed | Pathologist | | | | | At | Signature | + +-------+ + + + | MAGNESIUM,P | 2.0 | 1.6 - 2.6 mg/dL | [facility] | | | LASMA | | | [...] [facility] | [address] | [place] [address] | | | ELIN, NATALEE | VILMA [...] DEPT OF | [address] | [place], [place] | | | CARDIOLOGY | [address] | [address] | | + + + + + [...] [facility] | [address] | [place] [address] | | | SERVICES, NATALEE | VILMA [...] | | | LABORATORY | | | TRISTANIAN | | | SERVICES, | | | [...] 9 | 4 - 11 mmol/L | [facility] | | | GAP(ALB | | [...] | + + + + + | [facility] | [address] | [place] [address] | | | SERVICES, CORE | VILMA [...] | + + + + + | [facility] - | [address] | [place] [address] | | | [place] | | | | + + + [...] + + + + + | [facility] OF | [address] | [place], [place] | | | CARDIOLOGY | [address] | [address] | | + + + + + [...] | + + + + + | [facility] | [address] | [place] [address] | | | SERVICES, CORE | VILMA [...] + | [facility] | [address] | [place] [address] | | | [place] | | | | + + + [...] DEPT OF | [address] | [place], [place] | | | CARDIOLOGY | [address] | [address] | | + + + + + [...] | + + + + + | [facility] | [address] | [place] [address] | | | ELIN, NATALEE | VILMA [...] + | [facility] | [address] | [place] [address] | | | [facility] | | | | + [...] [facility] | [address] | [place] [address] | | | SERVICES, CORE | [address] [...] [facility] | [address] | [place] [address] | | | SERVICES, CORE | [address] [...] + + + + + | [facility] [employer] | [address] | [place] [address] | | | SERVICES, CORE [...] | | | LABORATORY | | | TRISTANIAN | | | SERVICES, | | | [...] [facility] | [address] | [place] [address] | | | SERVICES, NATALEE | PARK [...] + + + + + | [facility] | [address] | [place] [address] | | | SERVICES, CORE | [address] | | | + + + + + MAGNESIUM, PLASMA (11/11/2017 9:06 AM PDT) + +-------+ + + + | Component | Value | Ref Range | Performed | Pathologist | | | | | At | Signature | + +-------+ + + + | MAGNESIUM,P | 2.1 | 1.6 - 2.6 mg/dL | [facility] | | | LASMA | | | [...] [facility] | [address] | [place] [address] | | | SERVICES, NATALEE | VILMA [...] | | | LABORATORY | | | TRISTANIAN | | | SERVICES, | | | [...] | + + + + + | [facility] | [address] | [place] [address] | | | SERVICES, NATALEE | VILMA [...] DEPT OF | [address] | [place], [place] | | | CARDIOLOGY | [facility] | [address] | | + + + + + [...] [facility] | [address] | [place] [address] | | | SERVICES, CORE | VILMA [...] | | | LABORATORY | | | TRISTANIAN | | | SERVICES, | | | [...] | + + + + + | [facility] | [address] | [place] [address] | | | SERVICES, NATALEE | VILMA [...] + + + + + | [facility] | [address] | [place] [address] | | | NATALEE WORTHINGTON | [address] [...] | | | LABORATORY | | | TRISTANIAN | | | SERVICES, | | | [...] | + + + + + | [facility] | [address] | [place] [address] | | | SERVICES, CORE | PARK [...] 11/08/2017 | | | 2:30 PM Preliminary: Shvia Batista MD Dictation | | | initiated: [...] in the calvarium which appear similar to [facility] 2016 CT. These are indeterminant. Metastatic disease [...] | + + + + + | [facility] | [address] | [place] [address] | | | SERVICES, CORE | PARK [...] | | | LABORATORY | | | TRISTANIAN | | | SERVICES, | | | [...] the MDRD equation recommended by the | [facility] | | National Kidney Disease Education Program. [...] [facility] | [address] | [place] [address] | | | SERVICES, CORE | PARK [...] | [facility] | [address] | [place], [place] | | | CARDIOLOGY | [address] | [address] | | + + + + + [...] DEPT OF | [address] | [place], [place] | | | CARDIOLOGY | [address] | [address] | | + + + + + [...] | | | LABORATORY | | | TRISTANIAN | | | SERVICES, | | | [...] MDRD equation recommended by the | [facility] | | National Kidney Disease Education [...] + + + + + | [facility] | [address] | [place] [address] | | | SERVICES, CORE | PARK [...] + | [facility] | [address] | [place] [address] | | | SERVICES, NATALEE | VILMA [...] + + + + | PRODUCT | [id number] | | [facility] | | | UNIT [...] + + + + | EXPIRATION | [id number] | | [facility] | | | DATE [...] + + + + | BLOOD | [id number] | | [facility] | | | PRODUCT [...] [facility] | [address] | [place] [address] | | | SERVICES, | [address] [...] + + + + | PRODUCT | [id number] | | [facility] | | | UNIT [...] + + + + | EXPIRATION | [id number] | | [facility] | | | DATE [...] + + + + | BLOOD | [id number] | | [facility] | | | PRODUCT [...] [facility] | [address] | [place] [address] | | | SERVICES, | [...] | + + + + + | [facility] | [address] | [place] [address] | | | SERVICES, CORE | VILMA [...] [facility] | [address] | [place] [address] | | | SERVICES, CORE | [address]ARK [...] | | | LABORATORY | | | TRISTANIAN | | | SERVICES, | | | [...] MDRD equation recommended by the | [facility] | | National Kidney Disease Education [...] | + + + + + | [facility] | [address] | [place] [address] | | | SERVICES, CORE | [address] | | | + + + + + OPERATION RECORD (11/06/2017 12:27 AM PDT) + + | Procedure Note | + + | Magdiel Stock MD - 11/06/2017 12:27 AM PDT Date of Service: 11/05/2017 Attending | | Surgeon: Magdiel Stock MD Service Writer(s): Rg Aiken MD | | Preoperative Diagnoses: [...] his head was placed in a horseshoe tunnel heading inspector with his C-collar still | | attached [...] the incision down to the cranium. Once [place] | | skull was reached circumferentially around the prior incision, a #1 [place] was used | | to subperiosteally dissect [...] note for this encounter.Sonal Nunez, | | [facility] [id number] [place], [place] | | [id number] Orina, MDJB/TAHIRLDD: 11/05/2017 20:38:01DT: 11/06/2017 | | 00:27:33Job #: [id number] | |HATTIE/DUC | | | | | | /[id number] | + + CT HEAD WO CONTRAST [...] Surgeon: Magdiel | | | MD Dayami Service Writer: Rg Aiken MD Pre-op Diagnosis: | | [...] PGY-4 Neurological Surgery Pager | | | [phone] | | + + + CAPILLARY BLOOD [...] [facility] | [address] | [place], [place] | | | [facility] | [address] | [address] | | | TESTS | | | [...] [facility] | [address] | [place], [place] | | | [facility] | [address] | [address] | | | TESTS | | | [...] Note | + + | Service Account, [employer] [facility] In Interface - 11/05/2017 11:31 AM [...] + + + + + | [facility] | [address] | [place] [address] | | | SERVICES, CORE | PARK [...] [facility] | [address] | [place] [address] | | | SERVICES, NATALEE | VILMA [...] | | | LABORATORY | | | TRISTANIAN | | | SERVICES, | | | [...] | + + + + + | [facility] | [address] | [place] [address] | | | SERVICES, NATALEE | VILMA [...] + + + + + | [facility] [employer] | [address] | [place] [address] | | | SERVICES, CORE | VILMA [...] + + + + | PRODUCT | [id number] | | [facility] | | | UNIT [...] + + + + | EXPIRATION | [id number] | | [facility] | | | DATE [...] + + + + | BLOOD | [id number] | | [facility] | | | PRODUCT [...] [facility] | [address] | [place] [address] | | | SERVICES, | [address] [...] + + + + | PRODUCT | [id number] | | [facility] | | | UNIT [...] + + + + | EXPIRATION | [id number] | | [facility] | | | DATE [...] + + + + | BLOOD | [id number] | | [facility] | | | PRODUCT [...] [facility] | [address] | [place] [address] | | | SERVICES, | [address] [...] | + + + + + | [facility] | [address] | [place] [address] | | | SERVICES, CORE | PARK [...] [facility] | [address] | [place] [address] | | | SERVICES, | [address] [...] | + + + + + | [facility] | [address] | [place] [address] | | | SERVICES, | [address] [...] + + + + + | [facility] | [address] | [place] [address] | | | NATALEE WORTHINGTON | VILMA [...] DEPT OF | [address] | [place], [place] | | | CARDIOLOGY | [address] | [address] | | + + + + + [...] + | [facility] | [address] | [place] [address] | | | SERVICES, CORE | [address] [...] | + + + + + | [facility] | [address] | [place] [address] | | | SERVICES, CORE | VILMA [...] + | [facility] | [address] | [place] [address] | | | [place] | | | [...] | + + + + + | [facility] | [address] | [place] [address] | | | SERVICES, CORE | [address]ARK [...] [facility] | [address] | [place] [address] | | | SERVICES, CORE | [address] [...] | | | LABORATORY | | | TRISTANIAN | | | SERVICES, | | | [...] | + + + + + | [facility] | [address] | [place] [address] | | | SERVICES, NATALEE | VILMA [...] | + + + + + | [facility] | [address] | [place] [address] | | | SERVICES, CORE | VILMA [...] [facility] | [address] | [place] [address] | | | SERVICES, CORE | [address] [...] | | | LABORATORY | | | TRISTANIAN | | | SERVICES, | | | [...] MDRD equation recommended by the | [facility] | | National Kidney Disease Education [...] + + + + + | [facility] | [address] | [place] [address] | | | SERVICES, CORE | [address] | | | + + + + + MAGNESIUM, PLASMA (11/02/2017 6:14 AM PDT) + +-------+ + + + | Component | Value | Ref Range | Performed | Pathologist | | | | | At | Signature | + +-------+ + + + | MAGNESIUM,P | 1.9 | 1.6 - 2.6 mg/dL | [facility] | | | [facility] | | | [...] [facility] | [address] | [place] [address] | | | SERVICES, NATALEE | VILMA [...] | | | LABORATORY | | | TRISTANIAN | | | SERVICES, | | | [...] + + + + + | [facility] [employer] [facility] | [address] | [place] [address] | | | SERVICES, NATALEE | VILMA [...] | [facility] | [address] | [place], [place] | | | CARDIOLOGY | [address] | [address] | | + + + + + [...] [facility] | [address] | [place] [address] | | | NATALEE WORTHINGTON | [address]ARK [...] | | | LABORATORY | | | TRISTANIAN | | | SERVICES, | | | [...] | + + + + + | [facility] | [address] | [place] [address] | | | SERVICES, CORE | VILMA [...] DEPT OF | [address] | [place], [place] | | | CARDIOLOGY | [address] | [address] | | + + + + + [...] | | | LABORATORY | | | TRISTANIAN | | | SERVICES, | | | [...] + + + + + | [facility] [employer] [facility] | [address] | [place] [address] | | | SERVICES, NATALEE | VILMA [...] | + + + + + | [facility] | [address] | [place] [address] | | | SERVICES, CORE | VILMA [...] [facility] | [address] | [place], [place] | | | [facility] | [address] | [address] | | | TESTS | | | [...] + + + + + | [facility] | [address] | [place] [address] | | | SERVICES, CORE | [address] [...] | | | LABORATORY | | | TRISTANIAN | | | SERVICES, | | | [...] + + + + + | [facility] [employer] [facility] | [address] | [place] [address] | | | SERVICES, CORE | VILMA [...] [place] [facility] | | | | | [facility] | | | | [...] - [facility] | [address] | [place], [place] | | | [facility] | [address] | [address] | | | TESTS | | | [...] [facility] | [address] | [place] [address] | | | SERVICES, CORE | PARK [...] | | | LABORATORY | | | TRISTANIAN | | | SERVICES, | | | [...] | + + + + + | [facility] | [address] | [place] [address] | | | SERVICES, NATALEE | VILMA [...] - [facility] | [address] | [place], [place] | | | [facility] | [address] | [address] | | | TESTS | | | [...] [facility] | [address] | [place], [place] | | | CARDIOLOGY | [address] | [address] | | + + + + + [...] [facility] | [address] | [place], [place] | | | [facility] | [address] | [address] | | | TESTS | | | [...] [facility] | [address] | [place], [place] | | | [place]GLISH, POINT OF CARE | [address] | [address] | | | TESTS | | | [...] | + + + + + | [facility] | [address] | [place] [address] | | | SERVICES, CORE | VILMA [...] + | [facility] | [address] | [place] [address] | | | [place] | | | [...] | + + + + + | [facility] | [address] | [place] [address] | | | SERVICES, CORE | VILMA [...] [place] [facility] | [address] | [place] [address] | | | SERVICES, CORE | PARK [...] (L) | 3.5 - 4.7 g/dL | [facility] | | | PLASMA | | | [...] | + + + + + | [facility] | [address] | [place] [address] | | | SERVICES, CORE | VILMA [...] | | | LABORATORY | | | TRISTANIAN | | | SERVICES, | | | [...] | + + + + + | [facility] | [address] | [place] [address] | | | SERVICES, CORE | VILMA [...] + + + + + | [facility] | [address] | [place] [address] | | | SERVICES, CORE | VILMA [...] | 70 - 99 mg/dL | [facility] - | | | GLUCOSE, | [...] [facility] | [address] | [place], [place] | | | GLORIA GENAO OF [facility] | [address] | [address] | | | TESTS | | | [...] [facility] | [address] | [place], [place] | | | [facility] | [address] | [address] | | | TESTS | | | [...] At | + + + | EXAM: OK CHEST PICC LINE CHECK HISTORY: picc done [...] Interface - 10/27/2017 6:29 PM PDT EXAM: OK CHEST | | PICC LINE CHECK HISTORY: [...] correct | | | patient, procedure, equipment, cryptologic support specialist and site/side marked as | [...] vein. Catheter lot number: | | | [id number] with a length of 55 cm was [...] [facility] | [address] | [place], [place] | | | [facility] | [address] | [address] | | | TESTS | | | [...] DEPT OF | [address] | [place], [place] | | | CARDIOLOGY | [facility] | [address] | | + + + + + [...] [facility] | [address] | [place], [place] | | | [facility] | [address] | [address] | | | TESTS | | | [...] [facility] | [address] | [place] [address] | | | SERVICES, CORE | PARK [...] | | | LABORATORY | | | TRISTANIAN | | | SERVICES, | | | [...] the MDRD equation recommended by the | [facility] | | National Kidney Disease Education Program. [...] + + + + + | [facility] | [address] | [place] [address] | | | NATALEE WORTHINGTON | VILMA [...] - [facility] | [address] | [place], [place] | | | [facility] | [address] | [address] | | | TESTS | | | [...] [facility] | [address] | [place], [place] | | | [facility] | [address] | [address] | | | TESTS | | | [...] [facility] | [address] | [place], [place] | | | [facility] | [address] | [address] | | | TESTS | | | [...] + + + + + | [facility] | [address] | [place] [address] | | | NATALEE WORTHINGTON | VILMA [...] | | | LABORATORY | | | TRISTANIAN | | | SERVICES, | | | [...] | + + + + + | [facility] | [address] | [place] [address] | | | SERVICES, CORE | VILMA [...] [facility] | [address] | [place], [place] | | | [facility] | [address] | [address] | | | TESTS | | | [...] | | | LABORATORY | | | TRISTANIAN | | | SERVICES, | | | [...] | + + + + + | [facility] | [address] | [place] [address] | | | SERVICES, NATALEE | VILMA [...] [facility] | [address] | [place], [place] | | | [facility] | [facility] | [address] | | | TESTS | | | [...] DEPT OF | [address] | [place], [place] | | | CARDIOLOGY | [address] | [address] | | + + + + + [...] [facility] | [address] | [place], [place] | | | [facility] | [address] | [address] | | | TESTS | | | [...] DEPT OF | [address] | [place], [place] | | | CARDIOLOGY | [facility] | [address] | | + + + + + [...] [facility] | [address] | [place] [address] | | | NATALEE WORTHINGTON | VILMA [...] | + + + + + | [facility] | [address] | [place] [address] | | | [place] | | | [...] [facility] | [address] | [place] [address] | | | SERVICES, CORE | PARK [...] [facility] | [address] | [place] [address] | | | SERVICES, CORE | PARK [...] + | [facility] | [address] | [place] [address] | | | SERVICES, CORE | PARK [...] [facility] | [address] | [place] [address] | | | SERVICES, NATALEE | VILMA [...] [facility] | [address] | [place] [address] | | | SERVICES, CORE | PARK [...] | + + + + + | [facility] | [address] | [place] [address] | | | SERVICES, CORE | VILMA [...] [facility] | [address] | [place] [address] | | | SERVICES, CORE [...] | + + + + + | [facility] | [address] | [place] [address] | | | SERVICES, CORE | VILMA [...] [facility] | [address] | [place] [address] | | | SERVICES, CORE | VILMA [...] + + + + + | [facility] | [address] | [place] [address] | | | NATALEE WORTHINGTON | VILMA [...] | | | LABORATORY | | | TRISTANIAN | | | SERVICES, | | | [...] | + + + + + | [facility] | [address] | [place] [address] | | | SERVICES, CORE | VILMA [...] | | | correct patient, procedure, equipment, cryptologic support specialist and site/side | | | [...] | area Basilic vein. Catheter lot number: [id number] with a length of 55 | | [...] At | + + + | EXAM: OK CHEST 1 VIEW HISTORY: PICC placed-pt ready. [...] Interface - 10/24/2017 3:43 PM PDT EXAM: OK CHEST 1 | | VIEW HISTORY: PICC [...] [facility] | [address] | [place], [place] | | | [facility] | [facility] | [address] | | | TESTS | | | [...] | | Surgical Critical Care, PGY7 Pager: [phone] | | + + + CAPILLARY BLOOD [...] - [facility] | [address] | [place], [place] | | | [facility] | [address] | [address] | | | TESTS | | | [...] + + + | [facility] | [address] | [place], [place] | | | [facility] | [address] | [address] | | | TESTS | | | [...] | | | LABORATORY | | | TRISTANIAN | | | SERVICES, | | | [...] LABORATORY | [address] | [place] [address] | | | SERVICES, NATALEE | PARK [...] | + + + + + | [facility] | [address] | [place] [address] | | | ELIN, NATALEE | VILMA [...] [facility] | [address] | [place], [place] | | | [facility] | [address] | [address] | | | TESTS | | | [...] + | [facility] | [address] | [place] [address] | | | SERVICES, CORE | PARK [...] | | | LABORATORY | | | TRISTANIAN | | | SERVICES, | | | [...] [facility] | [address] | [place] [address] | | | NATALEE WORTHINGTON | VILMA [...] | [facility] DEPT OF | [address] | [place], [place] | | | CARDIOLOGY | [address] | [address] | | + + + + + IR GASTROSTOMY TUBE EXCHANGE (10/22/2017 2:42 PM PDT) + + | Specimen | + + | | + + + + + | Narrative | Performed At | + + + | Procedure: Gastrostomy tube exchange Primary attending | [facility] | | utility system operator: Shade Goodwin M.D. Preoperative diagnosis: | RADIOLOGY VOICE | | Malfunctioning Gastrostomy tube Postoperative diagnosis: Same | RECOGNITION | | Operations: Operation 1. Removal of existing Gastrostomy tube | | | over a guide wire Operation 2. Placement of 24 Beninese GABRIEL | | | gastrostomy over guide [...] a stiff glide wire the new 24 Beninese gastrostomy tube was | | | inserted. [...] Procedure: | | Gastrostomy tube exchangePrimary attending utility system operator: Shade Goodwin | | BrynPreoperative diagnosis: Malfunctioning Gastrostomy tubePostoperative diagnosis: | | SameOperations:Operation 1. Removal of existing Gastrostomy tube over a guide | | wireOperation 2. Placement of 24 Beninese GABRIEL gastrostomy over guide wireNo sedation was [...] glide wire the | | new 24 Beninese gastrostomy tube was inserted. The position of [...] stiff g lide wire the new 24 Beninese | |gastrostomy tube was inserted. The position [...] Note | + + | Service Account, [employer] In Interface - 10/22/2017 10:34 AM PDT [...] | [facility] | [address] | [place], [place] | | | CARDIOLOGY | [address] | [address] | | + + + + + [...] Note | + + | Service Account, [employer] In Interface - 10/22/2017 8:06 AM [...] [facility] | [address] | [place] [address] | | | SERVICES, CORE | PARK [...] | | | LABORATORY | | | TRISTANIAN | | | SERVICES, | | | [...] MDRD equation recommended by the | [facility] | | National Kidney Disease Education [...] + + + + + | [facility] | [address] | [place] [address] | | | NATALEE WORTHINGTON | VILMA [...] DEPT OF | [address] | [place], [place] | | | CARDIOLOGY | [address] | [address] | | + + + + + [...] | | | LABORATORY | | | TRISTANIAN | | | SERVICES, | | | [...] MDRD equation recommended by the | [facility] | | National Kidney Disease Education [...] + + + + + | [facility] | [address] | [place] [address] | | | NATALEE WORTHINGTON | VILMA [...] [facility] | [address] | [place] [address] | | | NATALEE WORTHINGTON | VILMA [...] DEPT OF | [address] | [place], [place] | | | CARDIOLOGY | [address] | [address] | | + + + + + [...] [facility] | [address] | [place] [address] | | | SERVICES, CORE | PARK [...] | | | LABORATORY | | | TRISTANIAN | | | SERVICES, | | | [...] | + + + + + | [facility] | [address] | [place] [address] | | | NATALEE WORTHINGTON | VILMA [...] | [facility] | [address] | [place], [place] | | | CARDIOLOGY | [address] | [address] | | + + + + + [...] | | | LABORATORY | | | TRISTANIAN | | | SERVICES, | | | [...] MDRD equation recommended by the | [facility] | | National Kidney Disease Education [...] + + + + + | [facility] | [address] | [place] [address] | | | NATALEE WORTHINGTON | VILMA [...] | + + + + + | [facility] | [address] | [place] [address] | | | NATALEE WORTHINGTON | VILMA [...] + + | [facility] | [address] | [place], [place] | | | CARDIOLOGY | [address] | [address] | | + + + + + [...] | | | LABORATORY | | | TRISTANIAN | | | SERVICES, | | | [...] | + + + + + | [facility] | [address] | [place] [address] | | | SERVICES, NATALEE | VILMA [...] [facility] | [address] | [place] [address] | | | SERVICES, [facility] | [address] | | | + [...] Note | + + | Service Account, [employer] In Interface - 10/15/2017 3:58 PM [...] DEPT OF | [address] | [place], [place] | | | CARDIOLOGY | [address] | [address] | | + + + + + [...] [facility] | [address] | [place], [place] | | | [facility] | [address] | [address] | | | TESTS | | | [...] + + + + + | [facility] | [address] | [place] [address] | | | SERVICES, CORE | VILMA [...] | 70 - 99 mg/dL | [facility] - | | | GLUCOSE, | [...] [facility] | [address] | [place], [place] | | | [facility] | [address] | [address] | | | TESTS | | | [...] DEPT OF | [address] | [place], [place] | | | CARDIOLOGY | [address] | [address] | | + + + + + [...] | + + + + + | [facility] | [address] | [place] [address] | | | SERVICES, CORE | PARK [...] | | | LABORATORY | | | TRISTANIAN | | | SERVICES, | | | [...] [facility] | [address] | [place] [address] | | | SERVICES, NATALEE | PARK [...] | + + + + + | [facility] | [address] | [place] [address] | | | ELIN, NATALEE | VILMA [...] | 70 - 99 mg/dL | [facility] - | | | GLUCOSE, | [...] [facility] | [address] | [place], [place] | | | [facility] | [address] | [address] | | | TESTS | | | [...] [facility] | [address] | [place], [place] | | | [facility] | [address] | [address] | | | TESTS | | | [...] [facility] | [address] | [place] [address] | | | SERVICES, CORE | PARK [...] | | | LABORATORY | | | TRISTANIAN | | | SERVICES, | | | [...] MDRD equation recommended by the | [facility] | | National Kidney Disease Education [...] + + + + + | [facility] | [address] | [place] [address] | | | NATALEE WORTHINGTON | [address] | | | + + + + + OPERATION RECORD (10/12/2017 8:50 PM PDT) + + | Procedure Note | + + | Pilar Cotto MD - 10/12/2017 8:50 PM PDT Date of Service: 10/12/2017 | | Attending Surgeon: Chaz Munoz MD Service Writer(s): Randell Dixon M.D., | | fellow. George [...] saline. We then | | placed a 19-Beninese drain deep into the abscess cavity, tracking [...] 10/12/2017 19:50:06DT: 10/12/2017 20:50:54Job #: | | [id number] | + + X-RAY PORTABLE CHEST 1 VIEW (10/12/2017 7:50 PM PDT) + + | Specimen | + + | | + + + + + | Narrative | Performed At | + + + | EXAM: OK CHEST 1 VIEW HISTORY: Evaluate endotracheal tube [...] Interface - 10/13/2017 9:04 AM PDT EXAM: OK CHEST 1 | | VIEW HISTORY: Evaluate [...] - [facility] | [address] | [place], [place] | | | [facility] | [address] | [address] | | | TESTS | | | [...] [facility] | [address] | [place] [address] | | | NATALEE WORTHINGTON | [address] [...] | | | LABORATORY | | | TRISTANIAN | | | SERVICES, | | | [...] + + + + + | [facility] [employer] [employer] | [address] | [place] [address] | | | ELIN, NATALEE | VILMA [...] | + + + + + | [facility] | [address] | [place] [address] | | | SERVICES, NATALEE | PARK [...] DEPT OF | [address] | [place], [place] | | | CARDIOLOGY | [address] | [address] | | + + + + + [...] DEPT OF | [address] | [place], [place] | | | CARDIOLOGY | [address] | [address] | | + + + + + [...] + + + + + | [facility] | [address] | [place] [address] | | | SERVICESNATALEE | [address] [...] | | LABORATORY | | | NATALEE WROTHINGTON | + + + + + + + + | Performing | Address | City/State/Zipcode | Phone Number | | Organization | | | | + + + + + | [facility] | [address] | [place] [address] | | | NATALEE WORTHINGTON | [address] [...] | | | LABORATORY | | | TRISTANIAN | | | SERVICES, | | | [...] | + + + + + | [facility] | [address] | [place] [address] | | | SERVICES, CORE | [address] | | | + + + + + PROCEDURE NOTE (10/10/2017 10:00 PM PDT) + + + | Narrative | Performed At | + + + | Darius Link MD 10/12/2017 11:11 AM OPERATIVE REPORT | | | DATE OF OPERATION: 10/10/2017 ATTENDING SURGEON: 1. Dr. Munoz | | | BOARD CATCHER: 1. Darius Link MD INDICATIONS: Dysphagia | | | and need for skilled nursing nutrition access PREOPERATIVE DIAGNOSIS: | | | 1.Dysphagia and need for skilled nursing nutrition access | | | POSTOPERATIVE DIAGNOSIS: [...] | | | [place] [id number] Chief Resident | | | Neurosurgery | [...] [facility] | [address] | [place] [address] | | | NATALEE WORTHINGTON | [address] [...] | | | LABORATORY | | | TRISTANIAN | | | SERVICES, | | | [...] + + + + + | [facility] [employer] [facility] | [address] | [place] [address] | | | SERVICES, CORE | VILMA [...] | + + + + + | [facility] | [address] | [place] [address] | | | SERVICES, CORE | [address] | | | + + + + + OPERATION RECORD (10/10/2017 12:40 PM PDT) + + | Procedure Note | + + | Magdiel Stock MD - 10/10/2017 12:40 PM PDT Date of Service: 10/10/2017 Attending | | Surgeon: Magdiel Stock MD Service Writer(s): Cecilia Hernandez, | | . Preoperative Diagnoses: [...] | the note for this encounter.Sonal Nunez [facility] [id number] [facility] | | [place] [id number] Orina, MDFAH/FELYD: | | 10/10/2017 11:52:15DT: 10/10/2017 12:40:41Job #: [id number] | | | | | |I was present for the critical portions of the procedure as described in the note for this encounter. | | | |Magdiel Stock MD | | | |Magdiel Stock MD | |[address] | |[address] [facility] | |[facility] | |[place] [address] | |[phone] | | | | | |Magdiel Stock MD | |JAYLAN/DUC | | | | | | /[id number] | + + X-RAY ABDOMEN 1 VIEW [...] + | [facility] | [address] | [place] [address] | | | [place] | | | [...] + | [facility] | [address] | [place] [address] | | | [place] | | | [...] Gram Stain: No squamous epithelial cells | [place] | | Many polymorphonuclear cells No organisms seen | | + + + + + + + + | Performing | Address | City/State/Zipcode | Phone Number | | Organization | | | | + + + + + | [facility] | [address] | [place] [address] | | | [place] | | | | + + + [...] + + + + | [facility] - | [address] | [place] [address] | | | [facility] | | | | + [...] | + + + + + | [facility] - | [address] | [place] [address] | | | [place] | | | [...] Gram Stain: No squamous epithelial cells | [place] | | Many polymorphonuclear cells No organisms seen | | + + + + + + + + | Performing | Address | City/State/Zipcode | Phone Number | | Organization | | | | + + + + + | [facility] | [address] | [place] [address] | | | [place] | | | | + + + [...] + | [facility] | [address] | [place] [address] | | | [facility] | | | | + [...] Gram Stain: No squamous epithelial cells | [place] | | Few polymorphonuclear cells No organisms seen | | + + + + + + + + | Performing | Address | City/State/Zipcode | Phone Number | | Organization | | | | + + + + + | [facility] | [address] | [place] [address] | | | [facility] | | | | + [...] + | [facility] | [address] | [place] [address] | | | [place] | | | [...] + | [facility] | [address] | [place] [address] | | | [place] | | | [...] Gram Stain: No squamous epithelial cells | [place] | | Moderate polymorphonuclear cells No organisms seen | | + + + + + + + + | Performing | Address | City/State/Zipcode | Phone Number | | Organization | | | | + + + + + | [facility] | [address] | [place] [address] | | | [place] | | | | + + + [...] + | [facility] | [address] | [place] [address] | | | [place] | | | [...] + | [facility] | [address] | [place] [address] | | | [place] | | | [...] Gram Stain: No squamous epithelial cells | [facility] | | Moderate polymorphonuclear cells No organisms seen | | + + + + + + + + | Performing | Address | City/State/Zipcode | Phone Number | | Organization | | | | + + + + + | [facility] | [address] | [place] [address] | | | [place] | | | [...] + | [facility] | [address] | [place] [address] | | | [place] | | | | + + + [...] + | [facility] | [address] | [place] [address] | | | [place] | | | [...] - | | | | | | [place] | | + + + + + [...] Gram Stain: No squamous epithelial cells | [place] | | Moderate polymorphonuclear cells No organisms seen | | + + + + + + + + | Performing | Address | City/State/Zipcode | Phone Number | | Organization | | | | + + + + + | [facility] | [address] | [place] [address] | | | [facility] | | | | + [...] | AIRPORT - | | | [facility] | + + + + + + + + | Performing | Address | City/State/Zipcode | Phone Number | | Organization | | | | + + + + + | [facility] | [address] | [place] [address] | | | [place] | | | | + + + [...] [facility] | [address] | [place] [address] | | | SERVICES, CORE | PARK [...] + + + + + | [facility] | [address] | [place] [address] | | | NATALEE WORTHINGTON | PARK [...] | + + + + + | [facility] | [address] | [place] [address] | | | SERVICES, CORE | [address] [...] | | | LABORATORY | | | TRISTANIAN | | | SERVICES, | | | [...] + + + + + | [facility] | [address] | [place] [address] | | | SERVICES, CORE | [address] | | | + + + + + 12 LEAD ECG (10/10/2017 2:08 AM PDT) + + + + + + | Component | Value | Ref Range | Performed | Pathologist | | | | | At | Signature | + + + + + + | VENTRICULAR | 117 | bpm | [facility] | | | RATE | [...] DEPT OF | [address] | [place], [place] | | | CARDIOLOGY | [address] | [address] | | + + + + + [...] + + + + | PRODUCT | [id number] | | [facility] | | | UNIT [...] + + + + | EXPIRATION | [id number] | | [facility] | | | DATE [...] + + + + | BLOOD | [id number] | | [facility] | | | PRODUCT [...] [facility] | [address] | [place] [address] | | | SERVICES, | [address] [...] + + + + | PRODUCT | [id number] | | [facility] | | | UNIT [...] + + + + | EXPIRATION | [id number] | | [facility] | | | DATE [...] + + + + | BLOOD | [id number] | | [facility] | | | PRODUCT [...] [facility] | [address] | [place] [address] | | | SERVICES, | [address] [...] 1 | Antibody present, unable | | [facility] | | | | to identify | [...] [facility] | [address] | [place] [address] | | | SERVICES, | [address] [...] | + + + + + | [facility] | [address] | [place] [address] | | | SERVICES, | [address] [...] [facility] | [address] | [place] [address] | | | SERVICES, | [address] [...] valves (2.5 - 3.5) INR APTT | [facility], CORE | | Therapeutic Range: (75 - 120) sec | | | Heparin levels of 0.35 - 0.7 U/mL | | + + + + + + + + | Performing | Address | City/State/Zipcode | Phone Number | | Organization | | | | + + + + + | [facility] | [address] | [place] [address] | | | NATALEE WORTHINGTON | [address] [...] DEPT OF | [address] | [place], [place] | | | CARDIOLOGY | [address] | [address] | | + + + + + [...] [facility] | | | | | [facility] | | | | [...] [facility] | [address] | [place], [place] | | | [facility] | [address] | [address] | | | TESTS | | | [...] [facility] | [address] | [place] [address] | | | SERVICES, NATALEE | [address] [...] | + + + + + | [facility] | [address] | [place] [address] | | | SERVICES, CORE | [address] [...] | | | LABORATORY | | | TRISTANIAN | | | SERVICES, | | | [...] the MDRD equation recommended by the | [facility] | | National Kidney Disease Education Program. [...] + + + + + | [facility] | [address] | [place] [address] | | | SERVICES, CORE | VILMA [...] | 70 - 99 mg/dL | [facility] - | | | GLUCOSE, | [...] PICKETT | [address] | [place], [place] | | | GL[facility]IA GE[facility]O [facility] | [address] | [address] | | | TESTS | | | [...] MARQUAM | [address] | [place], [place] | | | [facility] | [address] | [address] | | | TESTS | | | [...] MARQUAM | [address] | [place], [place] | | | [facility] | [address] | [address] | | | TESTS | | | [...] PICKETT | [address] | [place], [place] | | | [facility] | [address] | [address] | | | TESTS | | | [...] MARQUAM | [address] | [place], [place] | | | [facility] | [address] | [address] | | | TESTS | | | [...] + + + + + | [facility] | [address] | [place] [address] | | | SERVICES, CORE | PARK [...] [facility] | [address] | [place] [address] | | | SERVICES, CORE | VILMA [...] | | | LABORATORY | | | TRISTANIAN | | | SERVICES, | | | [...] | + + + + + | [facility] | [address] | [place] [address] | | | NATALEE WORTHINGTON | VILMA [...] [facility] | [address] | [place], [place] | | | GLORIA GENAO OF [facility] | [facility] | [address] | | | TESTS | | | [...] | 70 - 99 mg/dL | [facility] - | | | GLUCOSE, | [...] PICKETT | [address] | [place], [place] | | | [facility] | [address] | [address] | | | TESTS | | | [...] + + | [facility] | [address] | [place], [place] | | | CARDIOLOGY | [address] | [address] | | + + + + + [...] MARQUAM | [address] | [place], [place] | | | [facility] | [address] | [address] | | | TESTS | | | [...] [facility] | [address] | [place] [address] | | | SERVICES, CORE | P[facility] [...] [facility] | [address] | [place] [address] | | | SERVICES, CORE | PARK [...] | | | LABORATORY | | | TRISTANIAN | | | SERVICES, | | | [...] the MDRD equation recommended by the | [facility] | | National Kidney Disease Education Program. [...] + + + + + | [facility] | [address] | [place] [address] | | | NATALEE WORTHINGTON | VILMA [...] MARQUAM | [address] | [place], [place] | | | [facility] | [facility] | [address] | | | TESTS | | | [...] PICKETT | [address] | [place], [place] | | | [facility]ARE | [address] | [address] | | | TESTS | | | [...] MARQUAM | [address] | [place], [place] | | | [facility] | [address] | [address] | | | TESTS | | | [...] RAPHAELAM | [address] | [place], [place] | | | GLORIA GENAO OF GM | [address] | [address] | | | TESTS | | | [...] DEPT OF | [address] | [place], [place] | | | CARDIOLOGY | [address] | [address] | | + + + + + [...] + + + + + | [facility] | [address] | [place] [address] | | | SERVICES, CORE | [address] | | | + + + + + MAGNESIUM, PLASMA (10/05/2017 8:38 AM PDT) + +-------+ + + + | Component | Value | Ref Range | Performed | Pathologist | | | | | At | Signature | + +-------+ + + + | MAGNESIUM,P | 1.9 | 1.6 - 2.6 mg/dL | [facility] | | | LASMA | | [...] [facility] | [address] | [place] [address] | | | ELIN, NATALEE | VILMA [...] | | | LABORATORY | | | TRISTANIAN | | | SERVICES, | | | [...] | + + + + + | [facility] | [address] | [place] [address] | | | SERVICES, CORE | VILMA [...] MARQUAM | [address] | [place], [place] | | | [facility] | [address] | [address] | | | TESTS | | | [...] - MARQUAM | [address] | [place], [place] | | | [facility] | [address] | [address] | | | TESTS | | | [...] + + + | [facility] PICKETT | [address] | [place], [place] | | | [facility] | [address] | [address] | | | TESTS | | | [...] MARQUAM | [address] | [place], [place] | | | [facility] | [facility] | [address] | | | TESTS | | | [...] - MARQUAM | [address] | [place], [place] | | | [facility] | [address] | [address] | | | TESTS | | | [...] [facility] | [address] | [place] [address] | | | ELIN, NATALEE | VILMA [...] | + + + + + | [facility] | [address] | [place] [address] | | | SERVICES, CORE | VILMA [...] | | | LABORATORY | | | TRISTANIAN | | | SERVICES, | | | [...] + + + + + | [facility] | [address] | [place] [address] | | | SERVICES, CORE | VILMA [...] | 70 - 99 mg/dL | [facility] - | | | GLUCOSE, | [...] PICKETT | [address] | [place], [place] | | | [facility]ARE | [address] | [address] | | | TESTS | | | [...] MARKHRISAM | [address] | [place] | | | [facility] | [address] | [address] | | | TESTS | | | [...] | + + + + + | [facility] | [address] | [place] [address] | | | SERVICES, [facility] | [address] | | | + [...] by | | | | | | [employer],500 | | | | | | Rogelio Pickard [facility] | | | | | | [id number] | | | | | | [phone].Monsciergelab. | | | | | | Gui [...] [facility] | [address] | [place], [place] | | | [facility] | | [address] | | + + + + + [...] + + + + + | [facility] | [address] | [place] [address] | | | SERVICES, CORE | PARK [...] + + + + + | [facility] | [address] | [place] [address] | | | NATALEE WORTHINGTON | VILMA [...] modified from | [facility] | | original phlebotomy services representative's approved specifications. The performance | LABORATORY | | of the STUNT PERFORMER HIV Combo test, with or without confirmation, was not | SERVICES, | | tested in pediatric patients less than 2 years of age. [facility] | SPECIAL IMM + | | guidelines recommend virologic assays (i.e. HIV 1 VIRAL LOAD) that | [facility] | | directly detect HIV for diagnosis of HIV infection in infants younger | | | than 2 years. | | + + + + + + + + | Performing | Address | City/State/[facility] | Phone Number | | Organization | | | | + + + + + | [facility] | [address] | [place] [address] | | | SERVICES SPECIAL | VILMA [...] MARQUAM | [address] | [place], [place] | | | GLORIA GENAO OF GM | [address] | [address] | | | TESTS | | | [...] PICKETT | [address] | [place], [place] | | | [facility] | [address] | [address] | | | TESTS | | | [...] [facility] | [address] | [place] [address] | | | NATALEE WORTHINGTON | PARK [...] + + + + + | [facility] | [address] | [place] [address] | | | NATALEE WORTHINGTON | PARK [...] | | | LABORATORY | | | TRISTANIAN | | | SERVICES, | | | [...] | + + + + + | [facility] | [address] | [place] [address] | | | SERVICES, CORE | PARK [...] PIYUSH | [address] | [place], [place] | | | [facility] CARE | [address] | [address] | | | TESTS | | | [...] PICKETT | [address] | [place], [place] | | | [facility] | [address] | [address] | | | TESTS | | | [...] DEPT OF | [address] | [place], [place] | | | CARDIOLOGY | [address] | [address] | | + + + + + [...] At | + + + | EXAM: OK CHEST 1 VIEW HISTORY: Evaluate PICC placement [...] Note | + + | Service Account, [employer] In Interface - 10/02/2017 2:07 PM PDT EXAM: OK CHEST 1 | | VIEW HISTORY: Evaluate [...] PICKETT | [address] | [place], [place] | | | [facility]ARE | [address] | [address] | | | TESTS | | | | + + + + + X-RAY PORTABLE CHEST 1 VIEW (10/02/2017 8:56 AM PDT) + + | Specimen | + + | | + + + + + | Narrative | Performed At | + + + | EXAM: OK CHEST 1 VIEW HISTORY: new leukocytosis, eval [...] Interface - 10/02/2017 10:27 AM PDT EXAM: OK CHEST 1 | | VIEW HISTORY: new [...] MARQUAM | [address] | [place], [place] | | | [facility] | [address] | [address] | | | TESTS | | | [...] [facility] | [address] | [place] [address] | | | SERVICES, NATALEE | PARK [...] [place] [facility] | [address] | [place] [address] | | | SERVICES, CORE | VILMA [...] | | | LABORATORY | | | TRISTANIAN | | | SERVICES, | | | [...] the MDRD equation recommended by the | [facility] | | National Kidney Disease Education Program. [...] + + + + + | [facility] | [address] | [place] [address] | | | NATALEE WORTHINGTON | VILMA [...] MARQUAM | [address] | [place], [place] | | | GLORIA GENAO OF GM | [facility] | [address] | | | TESTS | | | [...] PICKETT | [address] | [place], [place] | | | GLORIA GENA[facility] OF GM | [address] | [address] | | | TESTS | | | [...] Note | + + | Service Account, [employer] In Interface - 10/01/2017 2:15 PM [...] PICKETT | [address] | [place], [place] | | | [facility] | [address] | [address] | | | TESTS | | | [...] Note | + + | Service Account, [employer] Res In Interface - 10/01/2017 11:34 AM [...] MARQUAM | [address] | [place], [place] | | | [facility] | [facility] | [address] | | | TESTS | | | [...] + + + + + | [facility] | [address] | [place] [address] | | | SERVICES, CORE | PARK [...] [facility] | [address] | [place] [address] | | | SERVICES, CORE | PARK [...] | | | LABORATORY | | | TRISTANIAN | | | SERVICES, | | | [...] MDRD equation recommended by the | [facility] | | National Kidney Disease Education [...] + + + + + | [facility] | [address] | [place] [address] | | | SERVICES, CORE | PARK [...] MARQUAM | [address] | [place], [place] | | | [facility] GE[facility] CARE | [facility] | [address] | | | TESTS | | | [...] PICKETT | [address] | [place], [place] | | | [facility] | [address] | [address] | | | TESTS | | | [...] | [facility]PT [facility] | [address] | [place], [place] | | | CARDIOLOGY | [address] | [address] | | + + + + + [...] MARQUAM | [address] | [place], [place] | | | [facility] | [address] | [address] | | | TESTS | | | [...] + + + | SELENA PICKETT | [address] | [place], [place] | | | [facility] | [address] | [address] | | | TESTS | | | [...] [facility] | [address] | [place] [address] | | | NATALEE WORTHINGTON | VILMA [...] + + + + + | [facility] | [address] | [place] [address] | | | NATALEE WORTHINGTON | VILMA [...] | | | LABORATORY | | | TRISTANIAN | | | SERVICES, | | | [...] | + + + + + | [facility] | [address] | [place] [address] | | | SERVICES, CORE | PARK [...] PIYUSH | [address] | [place], [place] | | | GL[facility] GE[facility] OF [facility] | [address] | [address] | | | TESTS | | | [...] - PIYUSH | [address] | [place], [place] | | | [facility] CARE | [facility] | [address] | | | TESTS | | | [...] | 70 - 99 mg/dL | [facility] - | | | GLUCOSE, | [...] PICKETT | [address] | [place], [place] | | | GLORIA GENAO OF GM | [facility] | [address] | | | TESTS | | | [...] DEPT OF | [address] | [place], [place] | | | CARDIOLOGY | [address] | [address] | | + + + + + [...] PIYUSH | [address] | [place], [place] | | | [facility] | [address] | [address] | | | TESTS | | | [...] [facility] | [address] | [place] [address] | | | SERVICES, CORE [...] | | | LABORATORY | | | TRISTANIAN | | | SERVICES, | | | [...] | + + + + + | [facility] | [address] | [place] [address] | | | NATALEE WORTHINGTON | VILMA [...] + + + + + | [facility] | [address] | [place] [address] | | | SERVICES, CORE | VILMA [...] | 70 - 99 mg/dL | [facility] - | | | GLUCOSE, | [...] PICKETT | [address] | [place], [place] | | | [facility] | [address] | [address] | | | TESTS | | | [...] MARQUAM | [address] | [place], [place] | | | [facility] | [address] | [address] | | | TESTS | | | [...] RAPHAELAM | [address] | [place], [place] | | | [facility] | [address] | [address] | | | TESTS | | | [...] | + + + + + | [facility] | [address] | [place], [place] | | | CARDIOLOGY | [address] | [address] | | + + + + + [...] MARQUAM | [address] | [place], [place] | | | [facility] | [facility] | [address] | | | TESTS | | | [...] [facility] | [address] | [place] [address] | | | SERVICES, CORE | PARK [...] [facility] | [address] | [place] [address] | | | SERVICES, CORE [...] | | | LABORATORY | | | TRISTANIAN | | | SERVICES, | | | [...] the MDRD equation recommended by the | [facility] | | National Kidney Disease Education Program. [...] + + + + + | [facility] | [address] | [place] [address] | | | NATALEE WORTHINGTON | VILMA [...] - MARQUAM | [address] | [place], [place] | | | [facility] | [address] | [address] | | | TESTS | | | [...] PICKETT | [address] | [place], [place] | | | GL[facility]IA GE[facility] | [address] | [address] | | | TESTS | | | [...] poorly cleared with dry swallows. Please see [facility] pathology report for full details | | [...] PICKETT | [address] | [place], [place] | | | [facility] | [address] | [address] | | | TESTS | | | [...] PIYUSH | [address] | [place], [place] | | | [facility] | [address] | [address] | | | TESTS | | | [...] + + + + + | [facility] | [address] | [place] [address] | | | SERVICES, CORE | [address] | | | + + + + + MAGNESIUM, PLASMA (09/27/2017 5:10 AM PDT) + +-------+ + + + | Component | Value | Ref Range | Performed | Pathologist | | | | | At | Signature | + +-------+ + + + | MAGNESIUM,P | 1.9 | 1.6 - 2.6 mg/dL | [facility] | | | LASMA | | | [...] [facility] | [address] | [place] [address] | | | SERVICES, NATALEE | VILMA [...] | | | LABORATORY | | | TRISTANIAN | | | SERVICES, | | | [...] | + + + + + | [facility] | [address] | [place] [address] | | | SERVICES, NATALEE | VILMA [...] MARQUAM | [address] | [place], [place] | | | [facility] | [address] | [address] | | | TESTS | | | [...] | 70 - 99 mg/dL | [facility] - | | | GLUCOSE, | [...] PIYUSH | [address] | [place], [place] | | | [facility] | [address] | [address] | | | TESTS | | | [...] [facility] | [address] | [place], [place] | | | CARDIOLOGY | [address] | [address] | | + + + + + [...] - MARQUAM | [address] | [place], [place] | | | [facility] | [address] | [address] | | | TESTS | | | [...] + + + | SELENA PICKETT | [address] | [place], [place] | | | [facility] | [address] | [address] | | | TESTS | | | [...] MARQUAM | [address] | [place], [place] | | | [facility] | [address] | [address] | | | TESTS | | | [...] + + + + + | [facility] | [address] | [place] [address] | | | SERVICES, CORE | PARK [...] [facility] | [address] | [place] [address] | | | SERVICES, CORE | VILMA [...] | | | LABORATORY | | | TRISTANIAN | | | SERVICES, | | | [...] | + + + + + | [facility] | [address] | [place] [address] | | | NATALEE WORTHINGTON | VILMA [...] SELENA PICKETT | [address] | [place], [place] | | | [facility] | [address] | [address] | | | TESTS | | | [...] + + + + + | [facility] | [address] | [place] [address] | | | SERVICES, CORE | [address] | | | + + + + + MAGNESIUM, PLASMA (09/25/2017 5:36 AM PDT) + +-------+ + + + | Component | Value | Ref Range | Performed | Pathologist | | | | | At | Signature | + +-------+ + + + | MAGNESIUM,P | 2.0 | 1.6 - 2.6 mg/dL | [facility] | | | LASMA | | | [...] [facility] | [address] | [place] [address] | | | NATALEE WORTHINGTON | VILMA [...] | | | LABORATORY | | | TRISTANIAN | | | SERVICES, | | | [...] | + + + + + | [facility] | [address] | [place] [address] | | | SERVICES, NATALEE | VILMA [...] + + + + + | [facility] | [address] | [place], [place] | | | CARDIOLOGY | [address] | [address] | | + + + + + [...] Note | + + | Service Account, [employer] In Interface - 09/24/2017 4:09 PM PDT [...] [facility] | [address] | [place] [address] | | | SERVICES, CORE | PARK [...] | | | LABORATORY | | | TRISTANIAN | | | SERVICES, | | | [...] MDRD equation recommended by the | [facility] | | National Kidney Disease Education [...] + + + + + | [facility] | [address] | [place] [address] | | | NATALEE WORTHINGTON | VILMA [...] [facility] | [address] | [place] [address] | | | SERVICES, CORE | PARK [...] + + + + + | [facility] | [address] | [place] [address] | | | NATALEE WORTHINGTON | VILMA [...] | + + + + + | [facility] | [address] | [place] [address] | | | SERVICES, CORE | VILMA [...] | | | LABORATORY | | | TRISTANIAN | | | SERVICES, | | | [...] + + + + + | [facility] | [address] | [place] [address] | | | SERVICES, CORE | VILMA [...] | 70 - 99 mg/dL | [facility] - | | | GLUCOSE, | [...] PICKETT | [address] | [place], [place] | | | [facility] | [address] | [address] | | | TESTS | | | [...] MARQUAM | [address] | [place], [place] | | | [facility] | [address] | [address] | | | TESTS | | | [...] | + + + + + | [facility] | [address] | [place] [address] | | | SERVICES, CORE | VILMA [...] DEPT OF | [address] | [place], [place] | | | CARDIOLOGY | [address] | [address] | | + + + + + [...] | + + + + + | [facility] | [address] | [place] [address] | | | SERVICESNATALEE | [address] [...] + + + + + | [facility] | [address] | [place] [address] | | | NATALEE WORTHINGTON | VILMA [...] | | | LABORATORY | | | TRISTANIAN | | | SERVICES, | | | [...] | + + + + + | [facility] | [address] | [place] [address] | | | SERVICES, CORE | VILMA [...] RAPHAELAM | [address] | [place], [place] | | | [facility] | [address] | [address] | | | TESTS | | | [...] + + + + + | [facility] [employer] | [address] | [place] [address] | | | SERVICES, CORE | VILMA [...] [facility] | [address] | [place] [address] | | | SERVICES, CORE | PARK [...] | | | LABORATORY | | | TRISTANIAN | | | SERVICES, | | | [...] + + + + + | [facility] | [address] | [place] [address] | | | SERVICES, CORE | VILMA [...] Note | + + | Service Account, [employer] In Interface - 09/20/2017 6:25 PM [...] Note | + + | Service Account, [employer] Res In Interface - 09/20/2017 6:26 PM [...] + + | [facility] | [address] | [place], [place] | | | CARDIOLOGY | [address] | [address] | | + + + + + [...] [facility] | [address] | [place] [address] | | | SERVICES, CORE | PARK [...] | + + + + + | [facility] | [address] | [place] [address] | | | NATALEE WORTHINGTON | VILMA [...] | | | LABORATORY | | | TRISTANIAN | | | SERVICES, | | | [...] | + + + + + | [facility] | [address] | [place] [address] | | | SERVICES, CORE | PARK [...] [facility] | [address] | [place] [address] | | | NATALEE WORTHINGTON | VILMA [...] | + + + + + | [facility] | [address] | [place] [address] | | | NATALEE WORTHINGTON | VILMA [...] | | | LABORATORY | | | TRISTANIAN | | | SERVICES, | | | [...] | + + + + + | [facility] | [address] | [place] [address] | | | SERVICES, CORE | VILMA [...] [facility] | [address] | [place] [address] | | | NATALEE WORTHINGTON | VILMA [...] + + + + + | [facility] | [address] | [place] [address] | | | SERVICES, NATALEE | PARK [...] | | | LABORATORY | | | TRISTANIAN | | | SERVICES, | | | [...] | + + + + + | [facility] | [address] | [place] [address] | | | SERVICES, CORE | VILMA [...] [facility] | [address] | [place] [address] | | | SERVICES, CORE | PARK [...] [facility] | [address] | [place] [address] | | | SERVICES, CORE | PARK [...] | | | LABORATORY | | | TRISTANIAN | | | SERVICES, | | | [...] MDRD equation recommended by the | [facility] | | National Kidney Disease Education [...] + + + + + | [facility] | [address] | [place] [address] | | | NATALEE WORTHINGTON | [address] | | | + + + + + X-RAY PORTABLE CHEST PICC LINE CHECK (09/16/2017 1:11 PM PDT) + + | Specimen | + + | | + + + + + | Narrative | Performed At | + + + | EXAM: OK CHEST PICC LINE CHECK HISTORY: PICC placement [...] Note | + + | Service Account, [employer] [facility] In Interface - 09/16/2017 1:34 PM PDT EXAM: OK CHEST | | PICC LINE CHECK HISTORY: [...] At | + + + | EXAM: OK CHEST PICC LINE CHECK HISTORY: Evaluate PICC [...] Note | + + | Service Account, [employer] In Interface - 09/16/2017 11:41 AM PDT EXAM: OK CHEST | | PICC LINE CHECK HISTORY: [...] + + + + + | [facility] | [address] | [place] [address] | | | SERVICES, CORE | PARK [...] [facility] | [address] | [place] [address] | | | SERVICES, CORE | PARK [...] | | | LABORATORY | | | TRISTANIAN | | | SERVICES, | | | [...] | + + + + + | [facility] | [address] | [place] [address] | | | NATALEE WORTHINGTON | [address] | | | + + + + + X-RAY PORTABLE CHEST 1 VIEW (09/15/2017 3:28 PM PDT) + + | Specimen | + + | | + + + + + | Narrative | Performed At | + + + | EXAM: OK CHEST 1 VIEW HISTORY: COMPARISON: None. | [...] Interface - 09/15/2017 6:45 PM PDT EXAM: OK CHEST 1 | | VIEW HISTORY: COMPARISON: [...] At | + + + | EXAM: OK CHEST PICC LINE CHECK HISTORY: PICC COMPARISON: [...] Interface - 09/15/2017 6:43 PM PDT EXAM: OK CHEST | | PICC LINE CHECK HISTORY: [...] Note Indications:TPN Procedure | | | location: Unit:[facility] Room: #12 Providers: Attending name: | | [...] | pause verifies correct patient, procedure, equipment, cryptologic support specialist | | | and site/side [...] | area Basilic vein. Catheter lot number: [id number] with a length of 55 | | [...] | + + + + + | [facility] | [address] | [place] [address] | | | SERVICES, CORE | PARK [...] [facility] | [address] | [place] [address] | | | SERVICES, NATALEE | VIL[address] [...] | | | LABORATORY | | | TRISTANIAN | | | SERVICES, | | | [...] + + + + + | [facility] | [address] | [place] [address] | | | SERVICES, NATALEE | [address] [...] | + + + + + | [facility] | [address] | [place] [address] | | | SERVICES, CORE | VILMA [...] [facility] | [address] | [place] [address] | | | SERVICES, CORE | PARK [...] | | | LABORATORY | | | TRISTANIAN | | | SERVICES, | | | [...] [facility] | [address] | [place] [address] | | | SERVICES, CORE | PARK [...] | + + + + + | [facility] | [address] | [place] [address] | | | SERVICES, CORE | VILMA [...] [facility] | [address] | [place] [address] | | | SERVICES, CORE | PARK [...] | | | LABORATORY | | | TRISTANIAN | | | SERVICES, | | | [...] + + + + + | [facility] | [address] | [place] [address] | | | SERVICES, [facility] | [address] | | | + + + + + X-RAY ABD LTD FEEDING TUBE EVAL (09/12/2017 6:50 AM PDT) + + | Specimen | + + | | + + + + + | Narrative | Performed At | + + + | EXAM: ABD LTD FEEDING TUBE EVAL HISTORY: Dobbhoff tube | [facility] | | placement. COMPARISON: 09/10/2017. FINDINGS/IMPRESSION: Tip [...] Note | + + | Service Account, [employer] [facility] [place] Res In Interface - 09/12/2017 9:13 AM [...] [facility] | [address] | [place] [address] | | | NATALEE WORTHINGTON | [address] [...] | + + + + + | [facility] | [address] | [place] [address] | | | SERVICES, NATALEE | [address] [...] | | | LABORATORY | | | TRISTANIAN | | | SERVICES, | | | [...] | + + + + + | [facility] | [address] | [place] [address] | | | SERVICES, CORE | PARK [...] Note | + + | Service Account, [employer] [place] Res In Interface - 09/12/2017 6:48 AM [...] | + + + + + | [facility] | [address] | [place] [address] | | | SERVICES, CORE | PARK [...] [facility] | [address] | [place] [address] | | | SERVICES, CORE | VILMA [...] | | | LABORATORY | | | TRISTANIAN | | | SERVICES, | | | [...] MDRD equation recommended by the | [facility] | | National Kidney Disease Education [...] | + + + + + | [facility] | [address] | [place] [address] | | | NATALEE WORTHINGTON | VILMA [...] | + + + + + | [facility] | [address] | [place] [address] | | | NATALEE WORTHINGTON | VILMA [...] Note | + + | Service Account, [employer] Res In Interface - 09/10/2017 2:08 PM [...] Note | + + | Service Account, [employer] In Interface - 09/10/2017 2:31 PM PDT [...] At | + + + | STUDY: OK CHEST 1 VIEW 09/10/17 07:02:01 HISTORY: Possible [...] Interface - 09/10/2017 9:25 AM PDT STUDY: OK CHEST 1 | | VIEW 09/10/17 07:02:01 [...] [facility] | [address] | [place] [address] | | | SERVICES, NATALEE | PARK [...] | + + + + + | [facility] | [address] | [place] [address] | | | SERVICES, CORE | VILMA [...] + + + + + | [facility] | [address] | [place] [address] | | | SERVICES, CORE | [address] | | | + + + + + MAGNESIUM, PLASMA (09/10/2017 5:08 AM PDT) + +-------+ + + + | Component | Value | Ref Range | Performed | Pathologist | | | | | At | Signature | + +-------+ + + + | MAGNESIUM,P | 2.1 | 1.6 - 2.6 mg/dL | [facility] | | | LASMA | | [...] [facility] | [address] | [place] [address] | | | SERVICES, NATALEE | VILMA [...] | | | LABORATORY | | | TRISTANIAN | | | SERVICES, | | | [...] | + + + + + | [facility] | [address] | [place] [address] | | | SERVICES, CORE | VIMLA [...] DEPT OF | [address] | [place], [place] | | | CARDIOLOGY | [address] | [address] | | + + + + + [...] Note | + + | Service Account, [employer] In Interface - 09/10/2017 11:11 AM PDT [...] [facility] | [address] | [place], [place] | | | GLORIA GENAO OF CARE | [address] | [address] | | | TESTS | | | [...] [facility] | [address] | [place] [address] | | | SERVICES, CORE | PARK [...] MCHC, PLT, IG% and IG# effective | [facility] | | 09/06/2107 | LABORATORY | | | NATALEE WORTHINGTON | + + + + + + + + | Performing | Address | City/State/Zipcode | Phone Number | | Organization | | | | + + + + + | [facility] | [address] | [place] [address] | | | NATALEE WORTHINGTON | VILMA [...] | | | LABORATORY | | | TRISTANIAN | | | SERVICES, | | | [...] + + + + + | [facility] [employer] | [address] | [place] [address] | | | SERVICES, CORE | PARK [...] [facility] | [address] | [place] [address] | | | NATALEE WORTHINGTON | VILMA [...] | | | LABORATORY | | | TRISTANIAN | | | SERVICES, | | | [...] | + + + + + | [facility] | [address] | [place] [address] | | | SERVICES, NATALEE | VILMA [...] [facility] | [address] | [place] [address] | | | SERVICES, CORE | VILMA [...] | + + + + + | [facility] | [address] | [place] [address] | | | SERVICES, CORE | VILMA [...] | [facility] | [address] | [place], [place] | | | CARDIOLOGY | [address] | [address] | | + + + + + X-RAY PORTABLE CHEST 1 VIEW (09/07/2017 6:12 AM PDT) + + | Specimen | + + | | + + + + + | Narrative | Performed At | + + + | EXAM: OK CHEST 1 VIEW HISTORY: Post extubation COMPARISON: [...] Interface - 09/07/2017 10:46 AM PDT EXAM: OK CHEST 1 | | VIEWHISTORY: Post extubationCOMPARISON: [...] + + | Performing | Address | City/State/[facility] | Phone Number | | Organization | [...] + + + + + | [facility] | [address] | [place] [address] | | | SERVICES, CORE | VILMA [...] | | | LABORATORY | | | TRISTANIAN | | | SERVICES, | | | [...] MDRD equation recommended by the | [facility] | | National Kidney Disease Education [...] + + + + + | [facility] | [address] | [place] [address] | | | SERVICES, CORE | PARK [...] [facility] | [address] | [place] [address] | | | NATALEE WORTHINGTON | VILMA [...] Note | + + | Service Account, [employer] Res In Interface - 09/07/2017 10:46 AM [...] DEPT OF | [address] | [place], [place] | | | CARDIOLOGY | [address] | [address] | | + + + + + [...] | | | attempt. Midline lot number [id number]; there was positive blood | | | [...] | | | LABORATORY | | | TRISTANIAN | | | SERVICES, | | | [...] + + + + + | [facility] [employer] | [address] | [place] [address] | | | NATALEE WORTHINGTON | VILMA [...] | + + + + + | [facility] | [address] | [place] [address] | | | NATALEE WORTHINGTON | [address] | | | + + + + + X-RAY PORTABLE CHEST 1 VIEW (09/05/2017 5:33 AM PDT) + + | Specimen | + + | | + + + + + | Narrative | Performed At | + + + | EXAM: OK CHEST 1 VIEW HISTORY: Evaluation after chest [...] Note | + + | Service Account, [employer] In Interface - 09/05/2017 10:16 AM PDT EXAM: OK CHEST 1 | | VIEW HISTORY: Evaluation [...] + + + + + | [facility] | [address] | [place] [address] | | | SERVICES, CORE | PARK [...] LABORATORY | | | | | | EILN, | | | | | | CORE [...] [facility] | [address] | [place] [address] | | | SERVICES, CORE | VILMA [...] | | | LABORATORY | | | TRISTANIAN | | | SERVICES, | | | [...] | + + + + + | [facility] | [address] | [place] [address] | | | NATALEE WORTHINGTON | VILMA [...] | | | LABORATORY | | | TRISTANIAN | | | SERVICES, | | | [...] | + + + + + | [facility] | [address] | [place] [address] | | | SERVICES, CORE | VILMA [...] tomorrow morning. CB Henson Pager / ID: [phone] | | + + + CULTURE, SPUTUM [...] + | [facility] - | [address] | [place] [address] | | | [place] | | | [...] [facility] | [address] | [place] [address] | | | SERVICES, CORE | PARK [...] | [facility] | | | GRAVITY | Mcallen performed by | | LABORATORY | | [...] + + + + + | [facility] | [address] | [place] [address] | | | SERVICES, CORE | [address] | | | + + + + + CULTURE, BLOOD BACTI & YEAST [facility] (09/04/2017 1:16 PM PDT) + + [...] [facility] | [address] | [place] [address] | | | SERVICES, CORE | PARK [...] + + + + + | [facility] | [address] | [place] [address] | | | SERVICES, CORE | PARK [...] [facility] | [address] | [place], [place] | | | CARDIOLOGY | [address] | [address] | | + + + + + X-RAY PORTABLE CHEST 1 VIEW (09/04/2017 7:04 AM PDT) + + | Specimen | + + | | + + + + + | Narrative | Performed At | + + + | EXAM: OK CHEST 1 VIEW HISTORY: Hypoxia. Intubated. | [...] Note | + + | Service Account, [employer] In Interface - 09/04/2017 9:49 AM PDT EXAM: OK CHEST 1 | | VIEW HISTORY: Hypoxia. [...] [facility] | [address] | [place] [address] | | | SERVICES, CORE | PARK [...] [facility] | [address] | [place] [address] | | | SERVICES, CORE | PARK [...] | | | LABORATORY | | | TRISTANIAN | | | SERVICES, | | | [...] + + + + + | [facility] [employer] [facility] | [address] | [place] [address] | | | ELIN, NATALEE | VILMA [...] | + + + + + | [facility] | [address] | [place] [address] | | | SERVICES, CORE [...] [facility] | [address] | [place], [place] | | | GLORIA GENAO OF CARE | [address] | [address] | | | TESTS | | | [...] [facility] | [address] | [place], [place] | | | GLORIA GENAO OF CARE | [facility] | [address] | | | TESTS | | | [...] | 70 - 99 mg/dL | [facility] - | | | GLUCOSE, | [...] [facility] | [address] | [place], [place] | | | GLORIA GENAO OF CARE | [facility] | [address] | | | TESTS | | | [...] [facility] | [address] | [place], [place] | | | JOHN GENAO | [address] | [address] | | | TESTS | | | [...] Note | + + | Service Account, [employer] In Interface - 09/03/2017 10:27 AM PDT [...] + | [facility] - | [address] | [place] [address] | | | [place] | | | [...] | + + + + + | [facility] | [address] | [place] [address] | | | SERVICES, CORE | [address] | | | + + + + + X-RAY ABD LTD FEEDING TUBE EVAL (09/03/2017 4:32 AM PDT) + + | Specimen | + + | | + + + + + | Narrative | Performed At | + + + | EXAM: Single supine view of the abdomen. History: NGT placement | [facility] | | Comparison: 09/02/2017. IMPRESSION: Wires, leads, [...] detected | [facility] - | | | [place] | + + + + + + + + | Performing | Address | City/State/Zipcode | Phone Number | | Organization | | | | + + + + + | [facility] - | [address] | [place] [address] | | | [place] | | | [...] | + + + + + | [facility] | [address] | [place] [address] | | | SERVICES, CORE | PARK [...] [facility] | [address] | [place] [address] | | | SERVICES, CORE | PARK [...] | | | LABORATORY | | | TRISTANIAN | | | SERVICES, | | | [...] MDRD equation recommended by the | [facility] | | National Kidney Disease Education [...] + + + + + | [facility] | [address] | [place] [address] | | | SERVICES, CORE | PARK [...] [facility] | [address] | [place] [address] | | | NATALEE WORTHINGTON | [address] | | | + + + + + OPERATION RECORD (09/02/2017 6:53 PM PDT) + + | Procedure Note | + + | Fidelina Shields MD - 09/02/2017 6:53 PM PDT Date of Service: 09/02/2017 | | Attending Surgeon: Fidelina Shields MD Service Writer(s): | | Ajay Garcia MD, resident. Preoperative [...] 09/02/2017 18:15:29DT: 09/02/2017 18:53:52Job #: | | [id number] to federal Medicare and Medicaid regulations I was present for | | the entire procedure.Fidelina Shields MDAssistant ProfessorDepartment of SurgeryOffice: | | [phone]: [id number] has been electronically signed by Fidelina Shields MD, | | 09/03/2017 at 9:11 AM. | | | | | |Fidelina Shields MD | |Plastics Nurse | |Department of Surgery | |Office: [phone] | |Pager: [phone] | | | |This has been electronically [...] [facility] | [address] | [place] [address] | | | SERVICES, CORE | PARK [...] | + + + + + | [facility] | [address] | [place] [address] | | | SERVICES, CORE | VILMA [...] detected | AIR[facility] - | | | [place] | + + + + + + + + | Performing | Address | City/State/Zipcode | Phone Number | | Organization | | | | + + + + + | [facility] | [address] | [place] [address] | | | [place] | | | | + + + [...] | + + + + + | [facility] | [address] | [place] [address] | | | SERVICES, CORE | VILMA [...] | | | LABORATORY | | | TRISTANIAN | | | SERVICES, | | | [...] | + + + + + | [facility] | [address] | [place] [address] | | | SERVICES, CORE | VILMA [...] Note | + + | Service Account, [employer] [place] Res In Interface - 09/02/2017 4:25 PM [...] | | | contact: INGRID Garcia, Surgery [phone] Pursuant | | | to federal Medicare and Medicaid regulations I was present for the | | | entire procedure. Fidelina Shields MD Plastics Nurse | | | Department of Surgery Office: [phone] Pager: [phone] This has | | | been electronically [...] [facility] | [address] | [place] [address] | | | SERVICES, CORE | VILMA [...] + + + + + | [facility] | [address] | [place] [address] | | | SERVICES, NATALEE | [address] | | | + + + + + OPERATION RECORD (09/02/2017 6:51 AM PDT) + ---+ | Procedure Note | + ---+ | Fidelina Shields MD - 09/02/2017 6:51 AM PDT Date of Service: 09/01/2017 | | Attending Surgeon: Fidelina Shields MD Service Writer(s): Haim Peralta MD. | | Ajay Garcia [...] 09/02/2017 06:17:53DT: 09/02/2017 | | 06:51:37Job #: [id number] to federal Medicare and Medicaid regulations I | | was present for the entire procedure.Fidelina Shields MDAssistant ProfessorDepartment of | | SurgeryOffice: [phone]: [id number] has been electronically signed by Fidelina Snyder | | MD Cornelius, 09/02/2017 at 10:40 AM. | | | | | |Pursuant to federal Medicare and Medicaid regulations I was present for the entire procedur e. | | | | | | | |Fidelina Shields MD | |Plastics Nurse | |Department of Surgery | |Office: [phone] | |Pager: [phone] | | | |This has been electronically [...] + + + + + | [facility] | [address] | [place] [address] | | | SERVICES, CORE | [...] (L) | 41.0 - 53.0 % | [facility] | | | | | | LABORATORY [...] [facility] | [address] | [place] [address] | | | SERVICES, CORE | PARK [...] + + + + | PRODUCT | [id number] | | [facility] | | | UNIT [...] + + + + | EXPIRATION | [id number] | | [facility] | | | DATE [...] + + + + | BLOOD | [id number] | | [facility] | | | PRODUCT [...] | + + + + + | [facility] | [address] | [place] [address] | | | SERVICES, | [address] [...] [facility] | [address] | [place] [address] | | | SERVICES, CORE | PARK [...] | | | LABORATORY | | | TRISTANIAN | | | SERVICES, | | | [...] MDRD equation recommended by the | [facility] | | National Kidney Disease Education [...] + + + + + | [facility] | [address] | [place] [address] | | | SERVICES, CORE | PARK [...] [facility] | [address] | [place] [address] | | | ELIN, NATALEE | [address]IL[address] [...] | | | | INFORMATION: | | [facility] | | | | QuantiFERON-TB [...] (http://www.cdc.gov/mmwr | | | | | | /preview/mmwrhtml/[email or web address] | | | | | | a1.htm), [...] [facility] - | | | | by [employer], | | AIRPORT - | | | | | | [place] | | | | [address] | | | | | | [address]el[address] [facility] | | | | | | [address] | | | | | | | | | | | | [email or web address] | | | | | | MD [...] + | [facility] - | [address] | [place] [address] | | | [place] | | | [...] [facility] | [address] | [place] [address] | | | SERVICES, CORE | PARK [...] | + + + + + | [facility] | [address] | [place] [address] | | | SERVICES, CORE | VILMA [...] At | + + + | EXAM: OK CHEST 1 VIEW HISTORY: Hypoxemia COMPARISON: 09/01/17 [...] Note | + + | Service Account, [employer] In Interface - 09/02/2017 10:34 AM PDT EXAM: OK CHEST 1 | | VIEW HISTORY: HypoxemiaCOMPARISON: [...] | + + + + + | [facility] | [address] | [place] [address] | | | ELIN, NATALEE | VILMA [...] | + + + + + | [facility] | [address] | [place] [address] | | | SERVICES, CORE | VILMA [...] + + + + | PRODUCT | [id number] | | [facility] | | | UNIT [...] + + + + | EXPIRATION | [id number] | | [facility] | | | DATE [...] + + + + | BLOOD | [id number] | | [facility] | | | PRODUCT [...] [facility] | [address] | [place] [address] | | | SERVICES, | [address] [...] | + + + + + | [facility] | [address] | [place] [address] | | | SERVICES, CORE | VILMA [...] | + + + + + | [facility] | [address] | [place] [address] | | | SERVICES, CORE | PARK [...] [facility] | [address] | [place] [address] | | | SERVICES, CORE | PARK [...] | | | LABORATORY | | | TRISTANIAN | | | SERVICES, | | | [...] | + + + + + | [facility] | [address] | [place] [address] | | | SERVICES, CORE | VILMA [...] | + + + + + | [facility] | [address] | [place] [address] | | | SERVICES, CORE | VILMA [...] | + + + + + | [facility] | [address] | [place] [address] | | | SERVICES, CORE | [address] | | | + + + + + IR EMBOLIZATION OTHER (09/01/2017 2:06 PM PDT) + + | Specimen | + + | | + + + + + | Narrative | Performed At | + + + | Procedure: Selective visceral arteriography. IR Attending: | [facility] | | Marquez Hubbard MD, PhD IR [...] micropuncture access set was exchanged for a [employer] wire. Under | | | fluoroscopic guidance, a 5 Fr flush catheter was used to evaluate the | | | distal abdominal aorta and pelvic vasculature. A wire and catheter | | | were then used to select the left common and internal iliac arteries | | | from the right REED OR WIND INSTRUMENT REPAIRER approach. DSA was performed from the left [...] micropuncture access set was exchanged for a [employer] wire. Under fluoroscopic guidance, | | a 5 Fr flush catheter was used to evaluate the distal abdominal aorta and pelvic | | vasculature. A wire and catheter were then used to select the left common and internal | | iliac arteries from the right REED OR WIND INSTRUMENT REPAIRER approach. DSA was performed from the left [...] micropuncture access set was exchanged for a [employer] wire. Under fluoroscopic guidance, a 5 Fr flush catheter was used | |to evaluate the distal abdominal aorta and pelvic vasculature. A wire and catheter were th en used to select the left common and internal iliac arteries from the right REED OR WIND INSTRUMENT REPAIRER approach. DSA was performed from the left [...] [facility] | [address] | [place], [place] | | | GLORIA GENAO OF GM | [address] | [address] | | | TESTS | | | | + + + + + EXPLORATORY LAPAROTOMY (09/01/2017 12:31 PM PDT) + + + | Narrative | Performed At | + + + | Fidelina Shields MD 09/01/2017 12:42 PM BRIEF OPERATIVE NOTE: | | | Date: 09/01/2017 Author: Fidelina Shields MD | | | Attending Physician: Fidelina Shields MD Service Writer(s): Haim Peralta | | | , Vicente [...] case. | | | Fidelina Shields MD Plastics Nurse Division of Trauma, | | | Critical Care and Acute Care Surgery Office: [phone] Pager: | | | [phone] | | + + + ABG-FULL ABL, [...] [facility] | [address] | [place], [place] | | | [place] POINT OF CARE | [address] | [address] | | | TESTS | | | [...] + + + + + | [facility] | [address] | [place] [address] | | | SERVICES, CORE | VILMA [...] 7.35 (L) | 7.37 - 7.44 | [facility] - | | | ARTERIAL, | | | [facility] | | | POC | | | GLORIA GENAO | | | | | | OF CARE | | | | | | TESTS | | + + + + + + | PO2 | 126 (H) | 72 - 104 mmHg | [facility] - | | | ARTERIAL, | [...] | | | POC | | | CHAD[place] POINT | | | | | | [...] [facility] | [address] | [place], [place] | | | [place] POINT OF CARE | [address] | [address] | | | TESTS | | | [...] + + + + | PRODUCT | [id number] | | [facility] | | | UNIT [...] + + + + | EXPIRATION | [id number] | | [facility] | | | DATE [...] + + + + | BLOOD | [id number] | | [facility] | | | PRODUCT [...] [facility] | [address] | [place] [address] | | | SERVICES, | [address] [...] + + + + | PRODUCT | [id number] | | [facility] | | | UNIT [...] + + + + | EXPIRATION | [id number] | | [facility] | | | DATE [...] + + + + | BLOOD | [id number] | | [facility] | | | PRODUCT [...] [facility] | [address] | [place] [address] | | | SERVICES, | [address] [...] + + + + | PRODUCT | [id number] | | [facility] | | | UNIT [...] + + + + | EXPIRATION | [id number] | | [facility] | | | DATE [...] + + + + | BLOOD | [id number] | | [facility] | | | PRODUCT [...] [facility] | [address] | [place] [address] | | | SERVICES, | [address] [...] + + + + | PRODUCT | [id number] | | [facility] | | | UNIT [...] + + + + | EXPIRATION | [id number] | | [facility] | | | DATE [...] + + + + | BLOOD | [id number] | | [facility] | | | PRODUCT [...] [facility] | [address] | [place] [address] | | | SERVICES, | [address] [...] + + + + | PRODUCT | [id number] | | [facility] | | | UNIT [...] + + + + | EXPIRATION | [id number] | | [facility] | | | DATE [...] + + + + | BLOOD | [id number] | | [facility] | | | PRODUCT [...] LABORATORY | [address] | [place] [address] | | | SERVICES, | [address] [...] + + + + | PRODUCT | [id number] | | [facility] | | | UNIT [...] + + + + | EXPIRATION | [id number] | | [facility] | | | DATE [...] + + + + | BLOOD | [id number] | | [facility] | | | PRODUCT [...] | + + + + + | [facility] | [address] | [place] [address] | | | SERVICES, | [address] [...] + + + + | PRODUCT | [id number] | | [facility] | | | UNIT [...] + + + + | EXPIRATION | [id number] | | [facility] | | | DATE [...] + + + + | BLOOD | [id number] | | [facility] | | | PRODUCT [...] | + + + + + | [facility] | [address] | [place] [address] | | | SERVICES, | [address] [...] + + + + | PRODUCT | [id number] | | [facility] | | | UNIT [...] + + + + | EXPIRATION | [id number] | | [facility] | | | DATE [...] + + + + | BLOOD | [id number] | | [facility] | | | PRODUCT [...] | + + + + + | [facility] | [address] | [place] [address] | | | SERVICES, | [address] [...] + + + + | PRODUCT | [id number] | | [facility] | | | UNIT [...] + + + + | EXPIRATION | [id number] | | [facility] | | | DATE [...] + + + + | BLOOD | [id number] | | [facility] | | | PRODUCT [...] [facility] | [address] | [place] [address] | | | SERVICES, | [address] [...] + + + + | PRODUCT | [id number] | | [facility] | | | UNIT [...] + + + + | EXPIRATION | [id number] | | [facility] | | | DATE [...] + + + + | BLOOD | [id number] | | [facility] | | | PRODUCT [...] [facility] | [address] | [place] [address] | | | SERVICES, | [address] [...] + + + + | PRODUCT | [id number] | | [facility] | | | UNIT [...] + + + + | EXPIRATION | [id number] | | [facility] | | | DATE [...] + + + + | BLOOD | [id number] | | [facility] | | | PRODUCT [...] [facility] | [address] | [place] [address] | | | SERVICES, | [address] [...] + + + + | PRODUCT | [id number] | | [facility] | | | UNIT [...] + + + + | EXPIRATION | [id number] | | [facility] | | | DATE [...] + + + + | BLOOD | [id number] | | [facility] | | | PRODUCT [...] [facility] | [address] | [place] [address] | | | SERVICES, | [address] [...] + + + + | PRODUCT | [id number] | | [facility] | | | UNIT [...] + + + + | EXPIRATION | [id number] | | [facility] | | | DATE [...] + + + + | BLOOD | [id number] | | [facility] | | | PRODUCT [...] [facility] | [address] | [place] [address] | | | SERVICES, | [address] [...] + + + + | PRODUCT | [id number] | | [facility] | | | UNIT [...] + + + + | EXPIRATION | [id number] | | [facility] | | | DATE [...] + + + + | BLOOD | [id number] | | [facility] | | | PRODUCT [...] [facility] | [address] | [place] [address] | | | SERVICES, | [address] [...] + + + + | PRODUCT | [id number] | | [facility] | | | UNIT [...] + + + + | EXPIRATION | [id number] | | [facility] | | | DATE [...] + + + + | BLOOD | [id number] | | [facility] | | | PRODUCT [...] | + + + + + | [facility] | [address] | [place] [address] | | | SERVICES, | [address] [...] + + + + | PRODUCT | [id number] | | [facility] | | | UNIT [...] + + + + | EXPIRATION | [id number] | | [facility] | | | DATE [...] + + + + | BLOOD | [id number] | | [facility] | | | PRODUCT [...] | + + + + + | [facility] | [address] | [place] [address] | | | SERVICES, | [address] [...] + + + + | PRODUCT | [id number] | | [facility] | | | UNIT [...] + + + + | EXPIRATION | [id number] | | [facility] | | | DATE [...] + + + + | BLOOD | [id number] | | [facility] | | | PRODUCT [...] + + + + + | [facility] [employer] [facility] | [address] | [place] [address] | | | SERVICES, | [address] [...] + + + + | PRODUCT | [id number] | | [facility] | | | UNIT [...] + + + + | EXPIRATION | [id number] | | [facility] | | | DATE [...] + + + + | BLOOD | [id number] | | [facility] | | | PRODUCT [...] | + + + + + | [facility] | [address] | [place] [address] | | | SERVICES, | [address] [...] + + + + | PRODUCT | [id number] | | [facility] | | | UNIT [...] + + + + | EXPIRATION | [id number] | | [facility] | | | DATE [...] + + + + | BLOOD | [id number] | | [facility] | | | PRODUCT [...] | + + + + + | [facility] | [address] | [place] [address] | | | SERVICES, | [address] [...] + + + + | PRODUCT | [id number] | | [facility] | | | UNIT [...] + + + + | EXPIRATION | [id number] | | [facility] | | | DATE [...] + + + + | BLOOD | [id number] | | [facility] | | | PRODUCT [...] + + + + + | [facility] | [address] | [place] [address] | | | SERVICES, | [address] [...] + + + + | PRODUCT | [id number] | | [facility] | | | UNIT [...] + + + + | EXPIRATION | [id number] | | [facility] | | | DATE [...] + + + + | BLOOD | [id number] | | [facility] | | | PRODUCT [...] [facility] | [address] | [place] [address] | | | SERVICES, | [address] [...] + + + + | PRODUCT | [id number] | | [facility] | | | UNIT [...] + + + + | EXPIRATION | [id number] | | [facility] | | | DATE [...] + + + + | BLOOD | [id number] | | [facility] | | | PRODUCT [...] [facility] | [address] | [place] [address] | | | SERVICES, | [address] [...] + + + + | PRODUCT | [id number] | | [facility] | | | UNIT [...] + + + + | EXPIRATION | [id number] | | [facility] | | | DATE [...] + + + + | BLOOD | [id number] | | [facility] | | | PRODUCT [...] [facility] | [address] | [place] [address] | | | SERVICES, | [address] [...] + + + + | PRODUCT | [id number] | | [facility] | | | UNIT [...] + + + + | EXPIRATION | [id number] | | [facility] | | | DATE [...] + + + + | BLOOD | [id number] | | [facility] | | | PRODUCT [...] [facility] | [address] | [place] [address] | | | SERVICES, | [address] [...] + + + + | PRODUCT | [id number] | | [facility] | | | UNIT [...] + + + + | EXPIRATION | [id number] | | [facility] | | | DATE [...] + + + + | BLOOD | [id number] | | [facility] | | | PRODUCT [...] [facility] | [address] | [place] [address] | | | SERVICES, | [address] [...] + + + + | PRODUCT | [id number] | | [facility] | | | UNIT [...] + + + + | EXPIRATION | [id number] | | [facility] | | | DATE [...] + + + + | BLOOD | [id number] | | [facility] | | | PRODUCT [...] | + + + + + | [facility] | [address] | [place] [address] | | | SERVICES, | [address] [...] [facility] | [address] | [place] [address] | | | SERVICES, CORE | PARK [...] | | | LABORATORY | | | TRISTANIAN | | | SERVICES, | | | [...] MDRD equation recommended by the | [facility] | | National Kidney Disease Education [...] + + + + + | [facility] | [address] | [place] [address] | | | SERVICES, CORE | P[address] [...] [facility] | [address] | [place] [address] | | | NATALEE WORTHINGTON | [address] [...] [facility] | [address] | [place], [place] | | | [facility] | [address] | [address] | | | TESTS | | | | + + + + + X-RAY PORTABLE CHEST 1 VIEW (09/01/2017 9:18 AM PDT) + + | Specimen | + + | | + + + + + | Narrative | Performed At | + + + | EXAM: OK CHEST 1 VIEW HISTORY: Intubated COMPARISON: 08/31/17 [...] Interface - 09/02/2017 1:23 PM PDT EXAM: OK CHEST 1 | | VIEW HISTORY: IntubatedCOMPARISON: [...] | + +---------+ + + | [facility] | | | | | [...] + + + + | PRODUCT | [id number] | | [facility] | | | UNIT [...] + + + + | EXPIRATION | [id number] | | [facility] | | | DATE [...] + + + + | BLOOD | [id number] | | [facility] | | | PRODUCT [...] [facility] | [address] | [place] [address] | | | SERVICES, | [address] [...] + + + + | PRODUCT | [id number] | | [facility] | | | UNIT [...] + + + + | EXPIRATION | [id number] | | [facility] | | | DATE [...] + + + + | BLOOD | [id number] | | [facility] | | | PRODUCT [...] [facility] | [address] | [place] [address] | | | SERVICES, | [address] [...] + + + + | PRODUCT | [id number] | | [facility] | | | UNIT [...] + + + + | EXPIRATION | [id number] | | [facility] | | | DATE [...] + + + + | BLOOD | [id number] | | [facility] | | | PRODUCT [...] | + + + + + | [facility] | [address] | [place] [address] | | | SERVICES, | [address] [...] + + + + | PRODUCT | [id number] | | [facility] | | | UNIT [...] + + + + | EXPIRATION | [id number] | | [facility] | | | DATE [...] + + + + | BLOOD | [id number] | | [facility] | | | PRODUCT [...] | + + + + + | [facility] | [address] | [place] [address] | | | SERVICES, | [address] [...] + + + + | PRODUCT | [id number] | | [facility] | | | UNIT [...] + + + + | EXPIRATION | [id number] | | [facility] | | | DATE [...] + + + + | BLOOD | [id number] | | [facility] | | | PRODUCT [...] | + + + + + | [facility] | [address] | [place] [address] | | | SERVICES, | [address] [...] + + + + | PRODUCT | [id number] | | [facility] | | | UNIT [...] + + + + | EXPIRATION | [id number] | | [facility] | | | DATE [...] + + + + | BLOOD | [id number] | | [facility] | | | PRODUCT [...] | + + + + + | [facility] | [address] | [place] [address] | | | SERVICES, | [address] [...] + + + + | PRODUCT | [id number] | | [facility] | | | UNIT [...] + + + + | EXPIRATION | [id number] | | [facility] | | | DATE [...] + + + + | BLOOD | [id number] | | [facility] | | | PRODUCT [...] | + + + + + | [facility] | [address] | [place] [address] | | | SERVICES, | [address] [...] + + + + | PRODUCT | [id number] | | [facility] | | | UNIT [...] + + + + | EXPIRATION | [id number] | | [facility] | | | DATE [...] + + + + | BLOOD | [id number] | | [facility] | | | PRODUCT [...] + | [facility] | [address] | [place] [address] | | | SERVICES, | [address] [...] + + + + | PRODUCT | [id number] | | [facility] | | | UNIT [...] + + + + | EXPIRATION | [id number] | | [facility] | | | DATE [...] + + + + | BLOOD | [id number] | | [facility] | | | PRODUCT [...] LABORATORY | [address] | [place] [address] | | | SERVICES, | [address] [...] | + + + + + | [facility] | [address] | [place] [address] | | | SERVICES, CORE | PARK [...] | + + + + + | [facility] | [address] | [place] [address] | | | SERVICES, CORE | [address] [...] Discussed with | | | trauma ICU machine learning intern by Dr. Yang at 4:38 AM. [...] interspinous ligament is injured.Discussed with trauma ICU machine learning intern | | by Dr. Yang at 4:38 AM.I have personally reviewed the images and, if necessary, | | edited the report. I agree with the report as now presented. | |3. Extensive soft tissue edema extending into the cervical and upper thoracic interspinous space, suggestive of interspinous ligament is injured. | | | |Discussed with trauma ICU machine learning intern by Dr. Yang at 4:38 AM. [...] | | | LABORATORY | | | TRIST[facility]IAN | | | SERVICES, | | | [...] | + + + + + | [facility] | [address] | [place] [address] | | | NATALEE WORTHINGTON | [address] [...] | + + + + + | [facility] | [address] | [place] [address] | | | ELIN, NATALEE | PARK [...] | + + + + + | [facility] | [address] | [place] [address] | | | SERVICES, CORE | [address] [...] + + + + + | [facility] | [address] | [place] [address] | | | ELIN, NATALEE | [address] [...] pleural spaced was performed. A 32 size Beninese chest tube was | | | placed [...] the ICU. Dr. Ware | | | aTmmy was present for the procedure. Findings: None [...] | ventricles. Discussed with the trauma ICU machine learning intern at 12:12 AM by | | | Dr. Yang. I have personally reviewed the images and, if | | | necessary, edited the report. I agree with the report as now | | | presented. | | + + + + + | Procedure Note | + + | Service Account, [employer] In Interface - 09/01/2017 10:14 AM PDT [...] ventricles.Discussed with | | the trauma ICU machine learning intern at 12:[address] Yang.I [...] | | |Discussed with the trauma ICU machine learning intern at 12:[address] Yang. [...] + + | Performing | Address | City/State/[facility] | Phone Number | | Organization | | | | + + + + + | [facility] | [address] | [place], [place] | | | [facility] | [address] | [address] | | | TESTS | | | [...] | + + + + + | [facility] | [address] | [place] [address] | | | SERVICES, CORE | [address] [...] | + + + + + | [facility] | [address] | [place] [address] | | | SERVICES, CORE | [address] [...] Note | + + | Service Account, [employer] In Interface - 09/01/2017 1:40 PM PDT [...] Note | + + | Service Account, [employer] Res In Interface - 09/01/2017 1:50 PM [...] [facility] | [address] | [place] [address] | | | SERVICES, CORE | [address] | | | + + + + + X-RAY PORTABLE CHEST 1 VIEW (08/31/2017 7:07 PM PDT) + + | Specimen | + + | | + + + + + | Narrative | Performed At | + + + | STUDY: OK CHEST 1 VIEW HISTORY: Trauma COMPARISON: CT CAP | [facility] | | 08/31/2017 FINDINGS: Endotracheal tube [...] Note | + + | Service Account, [employer] [facility] In Interface - 09/01/2017 1:44 PM PDT STUDY: OK CHEST 1 | | VIEWHISTORY: TraumaCOMPARISON: CT [...] [facility] | [address] | [place] [address] | | | ELIN, NATALEE | [address] [...] Note | + + | Service Account, [employer] [facility] In Interface - 09/01/2017 10:12 AM [...] rib, nondisplaced-Left | | 1st rib fracture, mgejgfzbukft-Bju-eipwjasqx left lateral 8th rib fracture-T12 fracture | [...] [facility] | [address] | [place] [address] | | | SERVICES, | [address] [...] [facility] | [address] | [place] [address] | | | SERVICES, | [address] [...] + + + + + | [facility] | [address] | [place] [address] | | | ELIN | [address] [...] [facility] | [address] | [place], [place] | | | [facility] | [address] | [address] | | | TESTS | | | [...] [facility] | [address] | [place], [place] | | | GLORIA GENAO OF [facility] | [facility] | [address] | | | TESTS | | | [...] | 70 - 99 mg/dL | [facility] - | | | POC | | [...] [facility] | [address] | [place], [place] | | | GLORIA GENAO OF CARE | [facility] | [address] | | | TESTS | | | [...] [facility] | [address] | [place], [place] | | | [facility] | [address] | [address] | | | TESTS | | | [...] + + + + | PRODUCT | [id number] | | [facility] | | | UNIT [...] + + + + | EXPIRATION | [id number] | | [facility] | | | DATE [...] + + + + | BLOOD | [id number] | | [facility] | | | PRODUCT [...] [facility] | [address] | [place] [address] | | | SERVICES, | [address] [...] + + + + | PRODUCT | [id number] | | [facility] | | | UNIT [...] + + + + | EXPIRATION | [id number] | | [facility] | | | DATE [...] + + + + | BLOOD | [id number] | | [facility] | | | PRODUCT [...] [facility] | [address] | [place] [address] | | | SERVICES, | [address] [...] + + + + | PRODUCT | [id number] | | [facility] | | | UNIT [...] + + + + | EXPIRATION | [id number] | | [facility] | | | DATE [...] + + + + | BLOOD | [id number] | | [facility] | | | PRODUCT [...] [facility] | [address] | [place] [address] | | | SERVICES, | [address] [...] + + + + | PRODUCT | [id number] | | [facility] | | | UNIT [...] + + + + | EXPIRATION | [id number] | | [facility] | | | DATE [...] + + + + | BLOOD | [id number] | | [facility] | | | PRODUCT [...] [facility] | [address] | [place] [address] | | | SERVICES, | [address] [...] + + + + | PRODUCT | [id number] | | [facility] | | | UNIT [...] + + + + | EXPIRATION | [id number] | | [facility] | | | DATE [...] + + + + | BLOOD | [id number] | | [facility] | | | PRODUCT [...] [facility] | [address] | [place] [address] | | | SERVICES, | [address] [...] + + + + | PRODUCT | [id number] | | [facility] | | | UNIT [...] + + + + | EXPIRATION | [id number] | | [facility] | | | DATE [...] + + + + | BLOOD | [id number] | | [facility] | | | PRODUCT [...] [facility] | [address] | [place] [address] | | | SERVICES, | [address] [...] + + + + | PRODUCT | [id number] | | [facility] | | | UNIT [...] + + + + | EXPIRATION | [id number] | | [facility] | | | DATE [...] + + + + | BLOOD | [id number] | | [facility] | | | PRODUCT [...] [facility] | [address] | [place] [address] | | | SERVICES, | [address] [...] + + + + | PRODUCT | [id number] | | [facility] | | | UNIT [...] + + + + | EXPIRATION | [id number] | | [facility] | | | DATE [...] + + + + | BLOOD | [id number] | | [facility] | | | PRODUCT [...] + + + + + | [facility] | [address] | [place] [address] | | | SERVICES, | [address] [...] [facility] | [address] | [place] [address] | | | SERVICES, CORE | [address] [...] | | | LABORATORY | | | TRISTANIAN | | | SERVICES, | | | [...] MDRD equation recommended by the | [facility] | | National Kidney Disease Education [...] + + + + + | [facility] | [address] | [place] [address] | | | NATALEE WORTHINGTON | [address] [...] | + + + + + | [facility] | [address] | [place] [address] | | | SERVICES, CORE | [address] [...] [facility] | [address] | [place] [address] | | | NATALEE WORTHINGTON | [address] [...] [facility] | [address] | [place] [address] | | | SERVICES, CORE | P[address] [...] [facility] | [address] | [place] [address] | | | SERVICES, NATALEE | [address] [...]
--- OUTSIDE RECORDS SUMMARY | ~2019-08-22 | XMS | Encounter Summary ---
Demographics + + + | Address | [address] | | | [place] [address] | + + + | Home Phone [...] + | Author | [facility] [employer] [facility] | + + + | Organization | [facility] USDS [employer] [facility] | + + [...] Providers + +------+ + | Care Head Of Research & Insights Name | Role | Phone | + [...] CENTER | | | | | | [address] | | | | | | Nola WALTERS | | | | | | [facility], [address] [place] [address] | | | | | | [place], [place] | | | | | | [address] | | | | | | [phone] | | | +--------+ + + + [...]
--- OUTSIDE RECORDS SUMMARY | ~2019-08-22 | XMS | Encounter Summary ---
Demographics + + + | Address | [address] | | | [place] [address] | + + + | Home Phone [...] | Author | [facility]IS[employer] [facility] | + + + | Organization | [facility] [employer] [facility] | + + + | Address | Unknown | + + + | Phone | Unavailable | + + + Support + + +---------+ + | Name | Relationship | Address | Phone | + + +---------+ + | Kaylie Baig | ECON | Unknown | | + + +---------+ + Care Team Providers + +------+ + | Care Supervisor Leaf Spring Repair Name | Role | Phone | + [...] | | | | Guy [facility] | [address] | | | | | Hospital Admitting | [place], [place] | | | | | Desk Located on the | [address] | | | | | 9th floor | [phone] | | | | | [place], [place] | | | | | | [address] | Mariann Victor CRNA | | | | | | [address] | | | | | | [address] | | | | | | [place], [place] | | | | | | [address] | | | | | | [phone] | | | | | | | [...] | | | | Lumen | Yes; [id number]; 11/09/17; 1154; | | | | | [...]
--- OUTSIDE RECORDS SUMMARY | ~2019-08-22 | XMS | Encounter Summary ---
Demographics + + + | Address | [address] | | | [place] [address] | + + + | Home Phone [...] Author | [facility] EXTENDED STAYS [facility] | + + + | Organization | [facility] [employer] [facility] [...] Team Providers + +------+ + | Care Stock Supervisor Name | Role | Phone | [...] [facility] | [address] [place], | | | | | Hospital Admitting | [place] [address] | | | | | Desk Located on the | [phone] | | | | | 9th floor | | | | | | [place], [place] | Joslyn Boss, | | | | | [address] | [address] | | | | | | [address] | | | | | | [place], [place] | | | | | | [address] | | | | | | [phone] | | | | | | | [...] + + + | Periph | 08/31/17; [facility]; Right; | 08/31/17 0000 by | 09/05/178 by | | ansley | Hand; 18 g; 09/05/17; 1717; Per | Guera Gresham RN | Barbie Yu RN | | IV | protocol | | | +--------+ + + + | Periph | 08/31/17; [facility]; Right; | 08/31/17 0000 by | [...]
--- OUTSIDE RECORDS SUMMARY | ~2019-08-22 | XMS | Encounter Summary ---
Demographics + + + | Address | [address] | | | [place] [address] | + + + | Home Phone [...] + | Author | [facility] [employer] [facility] | + + + | Organization | [facility] [employer]elr [employer] [facility] [...] Team Providers + +------+ + | Care Composing Machine Operator Name | Role | Phone [...] HOSPITAL | | | | | | [address] | | | | | | [place] | | | | | | [facility] | | | | | | [place], [place] | | | | | | [address] | | | | | | [phone] | | | +--------+ + + + [...]
--- OUTSIDE RECORDS SUMMARY | ~2019-08-22 | XMS | Encounter Summary ---
Demographics + + + | Address | [address] | | | [place] [address] | + + + | Home Phone [...] Author | [facility] [employer] [facility] | + + + | Organization | [facility] Ailvxing net Science [facility] [...] Providers + +------+ + | Care Vp Scientific Affairs Name | Role | Phone | + [...] Pass | Services at [facility] | | | | | | [address] | | | | | | [place] | | | | | | [facility] | | | | | | [place], [place] | | | | | | [address] | | | | | | [phone] | | | +--------+ + + + [...]
--- OUTSIDE RECORDS SUMMARY | ~2019-08-22 | XMS | Encounter Summary ---
Demographics + + + | Address | [address] | | | [place] [address] | + + + | Home Phone [...] + | Author | [facility] | + + + | Organization | [facility] [employer] [facility] | + + [...] Providers + +------+ + | Care Shoe Patternmaker Name | Role | Phone | + [...] | | | | | Rd [facility] | | | | | | Hospital Admitting | | | | | | Desk Located on the | | | | | | 9th floor | | | | | | [place], [place] | | | | | | [address] | | | +--------+ + + + [...]
--- OUTSIDE RECORDS SUMMARY | ~2019-08-22 | XMS | Clinical Summary ---
Demographics + + + | Address | [address] | | | [place] [address] | + + + | Home Phone | | + + + | Preferred Language | Unknown | + + + | Marital Status | Single | + + + | Shinto Affiliation | Unknown | + + + | Race | Unknown | + + + | Ethnic Group | Unknown | + + + Author + + + | Author | [facility] | | | and [place] | + + + | Organization | [facility] | | | and [place] [...] Team Providers + +------+ + | Care Python Web Developer Name | Role | Phone | + +------+ + | [facility] | PCP | | [...] +---------+--------+ | MEDICAID MCGRATH | MEDICA | [id number] | | [phone] | | Medica | [...] Person | Self | [birth year] | [address] | | | al/Fam | | 1961 | [phone] | [place] [address] | | | taras | | | 1 (Home) | | + +--------+ +--------+ + + Advance Directives + + + + + | Type | Date Recorded | Patient | Explanation | | | | Machinery Rigger | | + + + + + | Power of | | | | | Cab Supervisor | | | | + + + [...]
--- OUTSIDE RECORDS SUMMARY | ~2019-08-22 | XMS | Encounter Summary ---
Demographics + + + | Address | [address] | | | [place] [address] | + + + | Home Phone [...] Author | [facility] [employer] [facility] | + + + | Organization | [facility] quickhuddle Science [facility] [...] Team Providers + +------+ + | Care Admissions Gate Attendant Name | Role | Phone | [...] floor | | | | | | [place], [place] | | | | | | [address] | | | +--------+ + + + [...]
--- OUTSIDE RECORDS SUMMARY | ~2019-08-22 | XMS | Encounter Summary ---
Demographics + + + | Address | [address] | | | [place] [address] | + + + | Home Phone [...] Author | [facility] [employer] [facility] | + + + | Organization | [facility] [employer]ep[employer] [facility] | + [...] Team Providers + +------+ + | Care Skidder Driver Name | Role | Phone | [...] | | | | | Rd [facility] | | | | | | Hospital Admitting | | | | | | Desk Located on the | | | | | | 9th floor | | | | | | [place], [place] | | | | | | [address] | | | +--------+ + + + [...]
--- OUTSIDE RECORDS SUMMARY | ~2019-08-22 | XMS | Encounter Summary ---
Demographics + + + | Address | [address] | | | [place] [address] | + + + | Home Phone [...] Author | [facility] [place] [employer] [facility] | + + + | Organization | [facility] [employer] [facility] [...] Providers + +------+ + | Care Machine Assembler Supervisor Name | Role | Phone | [...] | | | | Guy [facility] | [address] [place], | | | | | Hospital Admitting | [place] [address] | | | | | Desk Located on the | [phone] | | | | | 9th floor | | | | | | [place], [place] | Joslyn Boss, | | | | | [address] | [address] | | | | | | [address] | | | | | | [place], [place] | | | | | | [address] | | | | | | [phone] | | | | | | | [...] + + + | Periph | 08/31/17; [facility]; Right; | 08/31/17 0000 by | 09/05/178 by | | ansley | Hand; 18 g; 09/05/17; 1717; Per | Guera Gresham RN | Barbie Yu RN | | IV | protocol | | | +--------+ + + + | Periph | 08/31/17; [facility] hospital; Right; | 08/31/17 0000 by [...]
--- OUTSIDE RECORDS SUMMARY | ~2019-08-22 | XMS | Encounter Summary ---
Demographics + + + | Address | [address] | | | [place] [address] | + + + | Home Phone [...] | Author | [facility] Indexing [facility] | + + + | Organization | [facility] [employer]Grabber [employer] [facility] | + + + | Address | Unknown | + + + | Phone | Unavailable | + + + Support + + +---------+ + | Name | Relationship | Address | Phone | + + +---------+ + | Kaylie Baig | ECON | Unknown | | + + +---------+ + Care Team Providers + +------+ + | Care Motor Equipment Captain Name | Role | Phone | [...] floor | | | | | | [place], [place] | | | | | | [address] | | | +--------+ + + + [...]
--- OUTSIDE RECORDS SUMMARY | ~2019-08-22 | XMS | Encounter Summary ---
Demographics + + + | Address | [address] | | | [place] [address] | + + + | Home Phone [...] + + + | Author | [facility] [employer] [facility] | + + + | Organization | [facility] [employer] [facility] [...] H[facility]PITAL | | | | | | [address] | | | | | | [place] | | | | | | [facility] [address] [place] [address] | | | | | | [place], [place] | | | | | | [address] | | | | | | [phone] | | | +--------+ + + + [...]
--- OUTSIDE RECORDS SUMMARY | ~2019-08-22 | XMS | Encounter Summary ---
Demographics + + + | Address | [address] | | | [place] [address] | + + + | Home Phone [...] + + | Author | [facility] | + + + | Organization | [facility] [facility] | [...] Team Providers + +------+ + | Care Vacuum Form Operator Name | Role | Phone | [...] + + + + | 09/15/ | Custom Furrier | Neurosurgery at | Dallin Bourgeois, | Other closed | | 2018 | | [facility] [address] | MD [address] | nondisplaced | | | | [facility] for | [address] | fracture of seventh | | | | Health and Healing, | [place], [place] | cervical vertebra | | | | Building , 8th | [address] | with routine | | | | floor [place], [place] | [phone] | healing, subsequent | | | | [address] | | encounter (Primary | | | | [phone] | | Dx) | +--------+ + + [...]
--- OUTSIDE RECORDS SUMMARY | ~2019-08-22 | XMS | Encounter Summary ---
Demographics + + + | Address | [address] | | | [place] [address] | + + + | Home Phone [...] + | Author | [facility] | + + + | Organization | [facility] | + + + | Address | Unknown | + + + | Phone | Unavailable | + + + Support + + +---------+ + | Name | Relationship | Address | Phone | + + +---------+ + | Kaylie Baig | ECON | Unknown | | + + +---------+ + Care Team Providers + +------+ + | Care Plate Developer Name | Role | Phone | [...] | 2017 | Pass | Services at [facility] | | | | | | [address] | | | | | | [place] | | | | | | [facility], [address] [place] [address] | | | | | | [place], [place] | | | | | | [address] | | | | | | [phone] | | | +--------+ + + + [...]
--- OUTSIDE RECORDS SUMMARY | ~2019-08-22 | XMS | Encounter Summary ---
Demographics + + + | Address | [address] | | | [place] [address] | + + + | Home Phone [...] + | Author | [facility] | + + + | Organization | [facility] [employer] [facility] | + + [...] + +------+ + | Care Financial Services Professional Name | Role | Phone | [...] | 2017 | Pass | Services at [facility] | | | | | | [address] | | | | | | [place] | | | | | | [facility], [address] [place] [address] | | | | | | [place], [place] | | | | | | [address] | | | | | | [phone] | | | +--------+ + + + [...]
--- OUTSIDE RECORDS SUMMARY | ~2019-08-22 | XMS | Encounter Summary ---
Demographics + + + | Address | [address] | | | [place] [address] | + + + | Home Phone [...] + | Author | [facility] | + + + | Organization | [facility] [employer] [facility] | + [...] Team Providers + +------+ + | Care Disposition Clerk Name | Role | Phone | [...] | | | Guy [facility] | [address] | | | | | Hospital Admitting | [place], [place] | | | | | Desk Located on the | [address] | | | | | 9th floor | [phone] | | | | | [place], [place] | | | | | | [address] | Jennifer Henderson CRNA | | | | | | [address] | | | | | | [place] [facility] | | | | | | [place] [address] | | | | | | [phone] | | | | | | | [...] centrally accessed); | | | | | [id number]; 10/22/17; 1542; | | | | | [...] 1733 by | | g Tube | ([facility] low profile g-tube 18 fr | [...] by | 10/12/171731 by | | | (hooven 19fr channel drain); | Valeria Seth RN [...]
--- OUTSIDE RECORDS SUMMARY | ~2019-08-22 | XMS | Encounter Summary ---
Demographics + + + | Address | [address] | | | [place] [address] | + + + | Home Phone [...] + | Author | [facility] | + + + | Organization | [facility] [employer] [facility] | + + + | Address | Unknown | + + + | Phone | Unavailable | + + + Support + + +---------+ + | Name | Relationship | Address | Phone | + + +---------+ + | Kaylie Baig | ECON | Unknown | | + + +---------+ + Care Team Providers + +------+ + | Care Metal Alloy Scientist Name | Role | Phone | [...] | | 2018 | anned | Services [id number] | | | | | | [address] | | | | | | Mailcode: OP17A | | | | | | [facility] | | | | | | [place], [place] | | | | | | [address] | | | | | | [phone] | | | +--------+ + + + [...]
--- NOTE | 2019-08-22 14:11 | NUR ---
59 YEAR OLD MALE PATIENT ADMITTED TO CCU UNDER DR. EMANUEL WITH DX OF HYPERNA, HYPOGLYCEMIA, SEIZURES,ETOH W/D. UPONN ADMIT PATIENT IS ABLE TO FOLLOW COMMANDS, IS ALERT AND ORIENTED, COOPERATINE. C/O LOWER BACK PAIN, C/O GUTIERREZ. RATE OVERALL PAIN 7/10.
--- NOTE | 2019-08-22 16:20 | NUR ---
DEXTROSE STARTED @ 75. PT IN BED WITH EYES CLOSED, RR 15. BLOOD PRESSURE 82/54. NEW IV STARTED IN LEFT FOREARM.
--- NOTE | 2019-08-22 19:05 | NUR ---
DR. CREWS UPDATED ON BP. ORDERS RECIEVED TO REPEAT 500 ML/HR. REPORT TO NEXT SHIFT.
--- NOTE | 2019-08-22 20:10 | NUR ---
LR BOLUS IS INFUSING. IVF CHANGED TO D51/2NR WITH 10MEGKCL AT 200ML/HR. PT DOES AWAKEN TO VOICE BUT DOES NOT STAY AWAKE. IS COOPERATIVE BUT VERY WEAK.
--- NOTE | 2019-08-22 21:30 | NUR ---
CALLED OUT TO ASK TO GO TO BATHROOM. ABLE TO USE URINAL. BACK TO SLEEP.
--- NOTE | 2019-08-22 21:57 | NUR ---
ADMIT TO CCU PER STRETCHER FROM ED. IS ALERT AND STATES IS FEELING BETTER. AMB TO BR WITHOUT PROBLEM. REMAINS IN AFIB HR 90'S TO LOW 100. GIVEN SNACK HAD NOT EATEN SINCE BREAKFAST.
--- NOTE | 2019-08-22 22:14 | EKG ---
[facility] [address] [facility] [place] [address] Signed Normal sinus rhythm Right bundle branch block Abnormal ECG When compared with ECG of 10-DEC-2017 17:00, QT has lengthened Confirmed by HAWK CREWS MD ([id number]) on 08/22/2019 10:13:56 PM Electronically Signed By: HAWK CREWS MD 08/22/19 2214 PATIENT NAME: PETERARTEMIO Electrocardiogram DATE OF : 64 PHYSICIAN: HAWK CREWS MD REPORT #: [id number] REPORT IS CONFIDENTIAL AND NOT TO BE RELEASED WITHOUT AUTHORIZATION
--- NOTE | 2019-08-22 23:50 | NUR ---
CALLED OUT, NEEDING TO VOID. ABLE TO USE URINAL, URINE IS YELLOW IN COLOR. WHEN ASKED HOW HE WAS PT STATED HE WAS ANXIOUS. STATES HE HAS GONE THROUGH ALCOHOL WITHDRAWLS BEFORE. RAFAELWA 10, GIVEN 1MG ATIVAN IV. TOOK SMALL AMTS BROTH AND SODA. GIVEN WARM BLANKET.
--- NOTE | 2019-08-23 02:36 | NUR ---
IN TO CHECK BS. OFFERED URINAL AND DID VOID. FOUND TO BE INC LARGE AMT URINE. CHUX AND GOWN CHANGED.
--- NOTE | 2019-08-23 04:20 | NUR ---
PT CALLED OUT FOR ASSISTANCE TO VOID. USED URINAL. STATES LESS ANXIOUS. HAS WEAK LOOSE COUGH, ENCOURAGED TO COUGH HARDER AND DID SO ONCE. TOOK SIP APPLE JUICE.
--- NOTE | 2019-08-23 05:59 | NUR ---
LAB DRAWN. PT VOIDED IN URINAL. ASKING ABOUT BREAKFAST, STATES HE WOULD LIKE SOME MUSH. REPOSITIONED AND BACK TO SLEEP.
--- NOTE | 2019-08-23 07:30 | NUR ---
report recieved. VOIDED TO URINAL. ASKING WHAT DAY IT IS TODAY. FOLLOWING COMMANDS. ASSESSMENT DONE.
--- NOTE | 2019-08-23 07:42 | NUR ---
OOB TO CHAIR. IS FAIRLY STABLE ON FEET. HAS OCCC COUGH. CLEAR TA TRAY ORDERED. PATIENT C/O BACK PAIN, SCRATCHING HEAD. STATES HEAD HAS BEEN ITCHING FOR PAST TWO DAY. RASH NOTED ON BACK.
--- NOTE | 2019-08-23 08:00 | NUR ---
BACK TO BED.
--- NOTE | 2019-08-23 08:05 | NUR ---
BLOOD SUGAR TAKEN, RESULT WAS 97, CHARTED IN EMAR AND REPORTED TO NURSE
--- NOTE | 2019-08-23 09:18 | NUR ---
PATIENT SITTING UP AT 90 ANGLE IN BED EATING CLEARS TRAY WITH NO ASSISTANCE AT THIS TIME AND SEEMS TO BE DOING WELL AT THE TASK
--- NOTE | 2019-08-23 10:45 | NUR ---
DR. CREWS HERE TO SEE PATIENT. PLAN I STO FEED PATIENT, AMBULATE IN WATERS, SHOWER AND IF PATIENT IS ABLE TO TOLERATED THIS ACTIVITY WILL BE DISCHARGED .
--- NOTE | 2019-08-23 11:10 | NUR ---
AMBULATED TO BR TO VOID. IS FAIRLY STABE ON FEET. IS COOPERATIVE. NO SIGNS OF DT'S TODAY. TAKING MEDICATIONS W/O PROBLEMS.
--- NOTE | 2019-08-23 12:10 | NUR ---
patient wanted a bit more food, he also asked for information on detox center, and he was able to dress himself
[2019-08-23] MEDS ORDERED: KEPPRA500 MG PO (12:26)
--- NOTE | 2019-08-23 12:30 | NUR ---
TOOK 2ND LUNCH WELL.
--- NOTE | 2019-08-23 13:00 | NUR ---
DISCHARGED ACCOMP BY BINDING STITCHER.
== END 2019-08-23 12:58 | disposition home or self-care (01) | DRG 101 ==
LOC: ED 07:17 → CCU 13:35
PROVIDERS: ADMIT Internal Medicine
DX: G40.909 Epilepsy, unspecified, not intractable, without status epilepticus (principal); E87.0 Hyperosmolality and hypernatremia; I69.354 Hemiplegia and hemiparesis following cerebral infarction affecting left non-dominant side; E86.0 Dehydration; F17.200 Nicotine dependence, unspecified, uncomplicated; E16.2 Hypoglycemia, unspecified; F10.20 Alcohol dependence, uncomplicated; Z59.0 Homelessness; Z79.899 Other long term (current) drug therapy; Z86.61 Personal history of infections of the central nervous system
CPT/HCPCS: 36415; 51701; 70450; 71045; 72125; 80048; 80053; 81001; 82542; 83735; 84484; 85025; 93005; 93010; 99285-25; C9113; G0480; J1953; J2060; J3411; J7030; J7070; J7121

== ENCOUNTER 2019-10-23 04:12 | Emergency (ER) | payer OTHER ==
[~2019-10-23] VITALS: Ht 165.1 cm; Wt 68.0 kg
--- OUTSIDE RECORDS SUMMARY | ~2019-10-23 | XMS | Encounter Summary ---
Demographics + + + | Address | [address] | | | [place] [address] | + + + | Home Phone | | + + + | Preferred Language | Unknown | + + + | Marital Status | Single | + + + | Alevism Affiliation | PEN | + + + | Race | or | + + + | Ethnic Group | Not or | + + + Author + + + | Author | [facility] [employer] [facility] | + + + | Organization | [facility] | + + + | Address | Unknown | + + + | Phone | Unavailable | + + + Support + + +---------+ + | Name | Relationship | Address | Phone | + + +---------+ + | Kaylie Baig | ECON | Unknown | | + + +---------+ + Care Team Providers + +------+ + | Care Nanny Caregiver Name | Role | Phone | + +------+ + | No Pcp Per Patient | PCP | Unavailable | + +------+ + Reason for Referral Consult to [place] (Routine) +--------+--------+ + + + + | Status | Reason | Specialty | Diagnoses / | Referred By | Referred To | | | | | Procedures | Contact | Contact | +--------+--------+ + + + + | Closed | | Spine | Diagnoses | Orina, | Orina, | | | | | Other | MD Magdiel | MD Magdiel | | | | | acquired | [address] | [address] | | | | | deformity of | [address] | | | | | head | Rd | Rd [place], | | | | | Procedures | [place], [place] | [place] | | | | | REQUEST TO | [address] | [address] | | | | | SURGERY | Phone: | Phone: | | | | | POSITION CLERK | [phone] | [phone] | | | | | CT REPLACE | Fax: | Fax: | | | | | SKULL | [phone] | [phone] | | | | | PLATE/FLAP | | | | | | | CT REPAIR | | | | | | | SKULL | | | | | | | DEFECT,UP TO | | | | | | | 5CM CT | | | | | | | REPAIR SKULL | | | | | | | DEFECT,>5CM | | | | | | | CT | | | | | | | MICROSURG | | | | | | | TECHNIQUES,R | | | | | | | EQ OPER | | | | | | | MICROSCOPE | | | +--------+--------+ + + + + Encounter Details +--------+ + + + + | Date | Type | Department | Care Team | Description | +--------+ + + + + | 10/31/ | Water Resources Business Segment Leader | Spine Center at | Magdiel Stock MD | Skull defect | | 2018 | | [facility] [address] | [address] | (Primary Dx) | | | | Ave Mailcode: | [place], | | | | | [facility] | [place] [address] | | | | | and [place], | [phone] | | | | | Building [address] | | | | | | [place], [place] | | | | | | [address] | | | | | | [phone] | | | +--------+ + + + + Social History + +-------+ +--------+------+ | Tobacco Use | Types | Packs/Day | Years | Date | | | | | Used | | + +-------+ +--------+------+ | Never Assessed | | | | | + +-------+ +--------+------+ + + + | Sex Assigned at | Date Recorded | | | | + + + | Not on file | | + + + + + + + | Job Start Date | Occupation | Industry | + + + + | Not on file | Not on file | Not on file | + + + + + + + + | Travel History | Travel Start | Travel End | + + + + + + | No recent travel history available. | + + documented as of this encounter Functional Status + + + + | Functional Status | Response | Date of Assessment | + + + + | Because of a physical, mental, or emotional | No | 09/01/2017 | | condition, do you have serious difficulty | | | | doing errands alone such as visiting the | | | | doctor? | | | + + + + + + + + | Cognitive Status | Response | Date of Assessment | + + + + | Because of a physical, mental, or emotional | No | 09/01/2017 | | condition, do you have serious difficulty | | | | concentrating, remembering, or making | | | | decisions? 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
--- OUTSIDE RECORDS SUMMARY | ~2019-10-23 | XMS | Encounter Summary ---
Demographics + + + | Address | [address] | | | [place] [address] | + + + | Home Phone | | + + + | Preferred Language | Unknown | + + + | Marital Status | Single | + + + | Presybeterian Affiliation | PEN | + + + | Race | or | + + + | Ethnic Group | Not or | + + + Author + + + | Author | [facility] | + + + | Organization | [facility] [employer] [facility] | + + + | Address | Unknown | + + + | Phone | Unavailable | + + + Support + + +---------+ + | Name | Relationship | Address | Phone | + + +---------+ + | Kaylie Baig | ECON | Unknown | | + + +---------+ + Care Team Providers + +------+ + | Care Account Resolution Specialist Name | Role | Phone | + +------+ + | No Pcp Per Patient | PCP | Unavailable | + +------+ + Reason for Visit + + + | Reason | Comments | + + + | Cervical Spine | | | Injury | | + + + Encounter Details +--------+ + + + + | Date | Type | Department | Care Team | Description | +--------+ + + + + | 09/15/ | Customs Examiner | Neurosurgery at | Dallin Bourgeois, | Other closed | | 2018 | | [facility] [address] | MD [address] | nondisplaced | | | | Ave Mailcode: CH[address] | [address] | fracture of seventh | | | | [place] [facility] | [facility] [place] | cervical vertebra | | | | and Healing, | [address] | with routine | | | | Building , | [phone] | healing, subsequent | | | | Floor [place], [place] | | encounter (Primary | | | | [address] | | Dx) | | | | [phone] | | | +--------+ + + + [...] + | Diagnosis | + + | Other closed nondisplaced fracture of seventh cervical vertebra with routine healing, | | subsequent encounter - Primary | + + documented in this encounter"
--- OUTSIDE RECORDS SUMMARY | ~2019-10-23 | XMS | Encounter Summary ---
Demographics + + + | Address | [address] | | | [place] [address] | + + + | Home Phone | | + + + | Preferred Language | Unknown | + + + | Marital Status | Single | + + + | Zoroastrianism Affiliation | PEN | + + + | Race | or | + + + | Ethnic Group | Not or | + + + Author + + + | Author | [facility] | + + + | Organization | [facility] [email or web address] [facility] | + + + | Address | Unknown | + + + | Phone | Unavailable | + + + Support + + +---------+ + | Name | Relationship | Address | Phone | + + +---------+ + | Kaylie Baig | ECON | Unknown | | + + +---------+ + Care Team Providers + +------+ + | Care Machine Sweeper Brush Maker Name | Role | Phone | + +------+ + | No Pcp Per Patient | PCP | Unavailable | + +------+ + Encounter Details +--------+ + + + + | Date | Type | Department | Care Team | Description | +--------+ + + + + | 09/02/ | Procedure | [address] | | | | 2018 | Pass | [address] | | | | | | Rd [facility] | | | | | | Hospital Admitting | | | | | | Desk Located on the | | | | | | 9th floor | | | | | | [place], [place] | | | | | | [address] | | | +--------+ + + + [...]
--- OUTSIDE RECORDS SUMMARY | ~2019-10-23 | XMS | Encounter Summary ---
Demographics + + + | Address | [address] | | | [place] [address] | + + + | Home Phone [...] + + + | Author | [facility] [employer] [facility] | + + + | Organization | [facility] [employer] [facility] | + + + | Address | Unknown | + + + | Phone | Unavailable | + + + Support + + +---------+ + | Name | Relationship | Address | Phone | + + +---------+ + | Kaylie Baig | ECON | Unknown | | + + +---------+ + Care Team Providers + +------+ + | Care Laundry Agent Name | Role | Phone | + +------+ + | No Pcp Per Patient | PCP | Unavailable | + +------+ + Encounter Details +--------+ + + + + | Date | Type | Department | Care Team | Description | +--------+ + + + + | 10/12/ | Procedure | [address]A Intra Op [address] | | | | 2018 | Pass | [address] | | | | | | Rd [facility] | | | | | | Hospital Admitting | | | | | | Desk Located on the | | | | | | 9th floor | | | | | | [place], [place] | | | | | | [address] | | | +--------+ + + + [...]
--- OUTSIDE RECORDS SUMMARY | ~2019-10-23 | XMS | Encounter Summary ---
Demographics + + + | Address | [address] | | | [place] [address] | + + + | Home Phone | | + + + | Preferred Language | Unknown | + + + | Marital Status | Single | + + + | Episcopalian Affiliation | PEN | + + + | Race | or | + + + | Ethnic Group | Not or | + + + Author + + + | Author | [facility] | + + + | Organization | [facility] [employer] [facility] | + + + | Address | Unknown | + + + | Phone | Unavailable | + + + Support + + +---------+ + | Name | Relationship | Address | Phone | + + +---------+ + | Kaylie Baig | ECON | Unknown | | + + +---------+ + Care Team Providers + +------+ + | Care Septic Technician Name | Role | Phone | [...] | 2017 | Pass | Services at [facility] | | | | | | [address] | | | | | | [place] | | | | | | [facility], [address] [place] [address] | | | | | | [place], [place] | | | | | | [address] | | | | | | [phone] | | | +--------+ + + + [...]
--- OUTSIDE RECORDS SUMMARY | ~2019-10-23 | XMS | Encounter Summary ---
Demographics + + + | Address | [address] | | | [place] [address] | + + + | Home Phone | | + + + | Preferred Language | Unknown | + + + | Marital Status | Single | + + + | Restorationism Affiliation | PEN | + + + | Race | or | + + + | Ethnic Group | Not or | + + + Author + + + | Author | [facility] [employer] [facility] | + + + | Organization | [facility] [employer] [facility] | + [...] Team Providers + +------+ + | Care Stem Shaper Name | Role | Phone | + [...] CENTER | | | | | | [address] | | | | | | [place] | | | | | | [facility], [address] [place] [address] | | | | | | [place], [place] | | | | | | [address] | | | | | | [phone] | | | +--------+ + + + [...]
--- OUTSIDE RECORDS SUMMARY | ~2019-10-23 | XMS | Encounter Summary ---
Demographics + + + | Address | [address] | | | [place] [address] | + + + | Home Phone [...] + + | Author | [facility] [employer] [facility] | + + + | Organization | [facility] [employer] [facility] | + + + | Address | Unknown | + + + | Phone | Unavailable | + + + Support + + +---------+ + | Name | Relationship | Address | Phone | + + +---------+ + | Kaylie Baig | ECON | Unknown | | + + +---------+ + Care Team Providers + +------+ + | Care Mangle Press Catcher Name | Role | Phone | [...] | | | | | | Rd [facility] | | | | | | Hospital Admitting | | | | | | Desk Located on the | | | | | | 9th floor | | | | | | [place], [place] | | | | | | [address] | | | +--------+ + + + [...]
--- OUTSIDE RECORDS SUMMARY | ~2019-10-23 | XMS | Clinical Summary ---
Demographics + + + | Address | [address] | | | [place] [address] | + + + | Home Phone [...] Team Providers + +------+ + | Care C Web Developer Name | Role | Phone | + +------+ + | No Pcp Per Patient | PCP | Unavailable | + +------+ + Source Comments SELENA is fully live on both [facility] Ambulatory and [facility] InPatient.[facility] Allergies No Known Allergies Medications [...] (Flu) | | | | | vaccination (Season | 0 | | | | Ended) | | | | + + + [...] | / | | MD Magdiel at [facility] | | | | | | /[id number] | | REV LOC | | | | | | 43 | + +------+--------+ +--------+--------+--------+ + + | Description:151mm x 125mm | | FT/Right-Ster | + + + +---+--------+ +---+---+--------+ | Screw Bone 4mm 1.55mm 2.55mm | | Right: | [facility] | | | 04.503 | | Matrixneuro | | Head | | | | .104.0 | | Craniomaxillofacial Titanium | | | | | | 5 / / | | Self Drill Nonsterile - | | | | | | | | [id number]: Qty: 11 | | | | | | | | on 11/05/2017 by Dayami, | | | | | | | | MD Magdiel at [facility] | | | | | [...] | | | | | | | [id number]: Qty: | | | | | | | | 1Explanted: Qty: 1 on | | | | | | | | 11/05/2017 at [facility] | | | | | [...] | | | + +--------+ +--------+-------+---------+--------+ | CARD PUNCHING MACHINE OPERATOR MEDICAID | CARD PUNCHING MACHINE OPERATOR | xxxxxxxx | 08/28/19 | | | [...] Person | Self | [birth year] | | [address] | | | al/Fam | | 1950 | [phone] | [place] [address] | | | taras | | | 6 (Home) | | + +--------+ +--------+ + + | [place] [employer] | Third | Self | [birth year] | | [address] | | | Green Party | | 1950 | [id number] | [place] [address] | | | Liabil | | | [...]
--- OUTSIDE RECORDS SUMMARY | ~2019-10-23 | XMS | Encounter Summary ---
Demographics + + + | Address | [address] | | | [place] [address] | + + + | Home Phone [...] Author + + + | Author | [facility] | + + + | Organization | [facility] [employer] [facility] | + + + | Address | Unknown | + + + | Phone | Unavailable | + + + Support + + +---------+ + | Name | Relationship | Address | Phone | + + +---------+ + | Kaylie Baig | ECON | Unknown | | + + +---------+ + Care Team Providers + +------+ + | Care Export Administrator Name | Role | Phone | + [...] | | | | Guy [facility] | [address] | | | | | Hospital Admitting | [place], [place] | | | | | Desk Located on the | [address] | | | | | 9th floor | [phone] | | | | | [place], [place] | | | | | | [address] | Jennifer Henderson CRNA | | | | | | [address] | | | | | | [place] [address] [facility] | | | | | | [place] [address] | | | | | | [phone] | | | | | | | [...] centrally accessed); | | | | | [id number]; 10/22/17; 1542; | | | | | [...] 1733 by | | g Tube | ([facility] low profile g-tube 18 fr | Katrin [...] by | 10/12/171731 by | | | (oswego 19fr channel drain); | Valeria Seht RN | Doreen Lopez RN | | [...]
--- OUTSIDE RECORDS SUMMARY | ~2019-10-23 | XMS | Encounter Summary ---
Demographics + + + | Address | [address] | | | [place] [address] | + + + | Home Phone [...] + + | Author | [facility] | + + + | Organization | [facility] | + + + | Address | Unknown | + + + | Phone | Unavailable | + + + Support + + +---------+ + | Name | Relationship | Address | Phone | + + +---------+ + | Kaylie Baig | ECON | Unknown | | + + +---------+ + Care Team Providers + +------+ + | Care Cell Coverer Name | Role | Phone | + [...] | | 2018 | anned | Services [address] | | | | | | [address] | | | | | | Mailcode: OP17A | | | | | | [facility] | | | | | | [place], [place] | | | | | | [address] | | | | | | [phone] | | | +--------+ + + + [...]
--- OUTSIDE RECORDS SUMMARY | ~2019-10-23 | XMS | Encounter Summary ---
Demographics + + + | Address | [address] | | | [place] [address] | + + + | Home Phone | | + + + | Preferred Language | Unknown | + + + | Marital Status | Single | + + + | Restorationist Affiliation | PEN | + + + | Race | or | + + + | Ethnic Group | Not or | + + + Author + + + | Author | [facility] | + + + | Organization | [facility] [facility] | + + + | Address | Unknown | + + + | Phone | Unavailable | + + + Support + + +---------+ + | Name | Relationship | Address | Phone | + + +---------+ + | Kaylie Baig | ECON | Unknown | | + + +---------+ + Care Team Providers + +------+ + | Care Change Release Manager Name | Role | Phone | [...] | | | | | | Rd [facility] | | | | | | Hospital Admitting | | | | | | Desk Located on the | | | | | | 9th floor | | | | | | [place], [place] | | | | | | [address] | | | +--------+ + + + [...]
--- OUTSIDE RECORDS SUMMARY | ~2019-10-23 | XMS | Encounter Summary ---
Demographics + + + | Address | [address] | | | [place] [address] | + + + | Home Phone [...] + | Author | [facility] [employer] [facility] | + + + | Organization | [facility] [employer] [facility] | + + + | Address | Unknown | + + + | Phone | Unavailable | + + + Support + + +---------+ + | Name | Relationship | Address | Phone | + + +---------+ + | Kaylie Baig | ECON | Unknown | | + + +---------+ + Care Team Providers + +------+ + | Care Picture Frame Maker Name | Role | Phone | [...] | 2017 | Pass | Services at [facility] | | | | | | [address] | | | | | | [place] | | | | | | [facility], [address] [place] [address] | | | | | | [place], [place] | | | | | | [address] | | | | | | [phone] | | | +--------+ + + + [...]
--- OUTSIDE RECORDS SUMMARY | ~2019-10-23 | XMS | Encounter Summary ---
Demographics + + + | Address | [address] | | | [place] [address] | + + + | Home Phone | | + + + | Preferred Language | Unknown | + + + | Marital Status | Single | + + + | Religion Affiliation | PEN | + + + | Race | or | + + + | Ethnic Group | Not or | + + + Author + + + | Author | [facility] | + + + | Organization | [facility] | + + + | Address | Unknown | + + + | Phone | Unavailable | + + + Support + + +---------+ + | Name | Relationship | Address | Phone | + + +---------+ + | Kaylie Baig | ECON | Unknown | | + + +---------+ + Care Team Providers + +------+ + | Care Grinder Set Up Operator Surface Name | Role | Phone | + +------+ + | No Pcp Per Patient | PCP | Unavailable | + +------+ + Encounter Details +--------+ + + + + | Date | Type | Department | Care Team | Description | +--------+ + + + + | 10/12/ | Procedure | Diagnostic Imaging | | | | 2018 | Pass | Services at [facility] | | | | | | [address] | | | | | | [place] [place] | | | | | | [facility], [address] [place] [address] | | | | | | [place], [place] | | | | | | [address] | | | | | | [phone] | | | +--------+ + + + [...]
--- OUTSIDE RECORDS SUMMARY | ~2019-10-23 | XMS | Encounter Summary ---
Demographics + + + | Address | [address] | | | [place] [address] | + + + | Home Phone [...] | Replaced By [facility] | + + + | Organization | Replaced By [facility] [employer] [facility] | + + + | Address | Unknown | + + + | Phone | Unavailable | + + + Support + + +---------+ + | Name | Relationship | Address | Phone | + + +---------+ + | Kaylie Baig | ECON | Unknown | | + + +---------+ + Care Team Providers + +------+ + | Care Lockstitch Back Maker Name | Role | Phone | [...] [place]ball | | | | | Guy [facility] | [address] | | | | | Hospital Admitting | [place], [place] | | | | | Desk Located on the | [address] | | | | | 9th floor | [phone] | | | | | [place], [place] | | | | | | [address] | [address], | | | | | | [facility] [address] | | | | | | [address] | | | | | | [place], [place] | | | | | | [address] | | | | | | [phone] | | | | | | | [...] centrally accessed); | | | | | [id number]; 10/22/17; 1542; | | | | | [...]
--- OUTSIDE RECORDS SUMMARY | ~2019-10-23 | XMS | Encounter Summary ---
Demographics + + + | Address | [address] | | | [place] [address] | + + + | Home Phone [...] + + | Author | [facility] | + + + | Organization | [facility] | + + + | Address | Unknown | + + + | Phone | Unavailable | + + + Support + + +---------+ + | Name | Relationship | Address | Phone | + + +---------+ + | Kaylie Baig | ECON | Unknown | | + + +---------+ + Care Team Providers + +------+ + | Care Appeals Manager Name | Role | Phone | [...] Chambers | | | | | Guy [facility] | [address] [place], | | | | | Hospital Admitting | [place] [address] | | | | | Desk Located on the | [phone] | | | | | 9th floor | | | | | | [place], [place] | Joslyn Boss, | | | | | [address] | [address] | | | | | | [address] | | | | | | [place], [place] | | | | | | [address] | | | | | | [phone] | | | | | | | [...] + + + | Periph | 08/31/17; [facility]; Right; | 08/31/17 0000 by | 09/05/178 by | | ansley | Hand; 18 g; 09/05/17; 1717; Per | Guera Gresham RN | Barbie Yu RN | | IV | protocol | | | +--------+ + + + | Periph | 08/31/17; [facility] hospital; Right; | 08/31/17 0000 by [...]
--- OUTSIDE RECORDS SUMMARY | ~2019-10-23 | XMS | Encounter Summary ---
Demographics + + + | Address | [address] | | | [place] [address] | + + + | Home Phone [...] Author | [facility] [employer] [facility] | + + + | Organization | [facility] [employer] [facility] | + + + | Address | Unknown | + + + | Phone | Unavailable | + + + Support + + +---------+ + | Name | Relationship | Address | Phone | + + +---------+ + | Kaylie Baig | ECON | Unknown | | + + +---------+ + Care Team Providers + +------+ + | Care Snapper On Name | Role | Phone | + [...] CENTER | | | | | | [address] | | | | | | [address] [place] | | | | | | [facility], [address] [place] [address] | | | | | | [place], [place] | | | | | | [address] | | | | | | [phone] | | | +--------+ + + + [...]
--- OUTSIDE RECORDS SUMMARY | ~2019-10-23 | XMS | Encounter Summary ---
Demographics + + + | Address | [address] | | | [place] [address] | + + + | Home Phone | | + + + | Preferred Language | Unknown | + + + | Marital Status | Single | + + + | Congregational Affiliation | PEN | + + + | Race | or | + + + | Ethnic Group | Not or | + + + Author + + + | Author | [facility] | + + + | Organization | [facility] [employer] [facility] | + + + | Address | Unknown | + + + | Phone | Unavailable | + + + Support + + +---------+ + | Name | Relationship | Address | Phone | + + +---------+ + | Kaylie Baig | ECON | Unknown | | + + +---------+ + Care Team Providers + +------+ + | Care Automobile Club Information Clerk Name | Role | Phone | + [...] 2018 | Pass | Services at [facility] | | | | | | [address] | | | | | | [place] | | | | | | [facility] | | | | | | [place], [place] | | | | | | [address] | | | | | | [phone] | | | +--------+ + + + [...]
--- OUTSIDE RECORDS SUMMARY | ~2019-10-23 | XMS | Encounter Summary ---
Demographics + + + | Address | [address] | | | [place] [address] | + + + | Home Phone [...] + + | Author | [facility] | + + + | Organization | [facility] [employer] [facility] [...] Team Providers + +------+ + | Care Recreation Leader Name | Role | Phone | + [...] | | 2018 | anned | Services [id number] | | | | | | [address] | | | | | | Mailcode: OP17A | | | | | | [facility] | | | | | | [place], [place] | | | | | | [address] | | | | | | [phone] | | | +--------+ + + + [...]
--- OUTSIDE RECORDS SUMMARY | ~2019-10-23 | XMS | Encounter Summary ---
Demographics + + + | Address | [address] | | | [place] [address] | + + + | Home Phone | | + + + | Preferred Language | Unknown | + + + | Marital Status | Single | + + + | Lutheran Affiliation | PEN | + + + | Race | or | + + + | Ethnic Group | Not or | + + + Author + + + | Author | [facility] [employer] [facility] | + + + | Organization | [facility] [employer] [facility] | + + + | Address | Unknown | + + + | Phone | Unavailable | + + + Support + + +---------+ + | Name | Relationship | Address | Phone | + + +---------+ + | Kaylie Baig | ECON | Unknown | | + + +---------+ + Care Team Providers + +------+ + | Care Centrifugal Operator Name | Role | Phone | [...] | | | | | | Rd [facility] | | | | | | Hospital Admitting | | | | | | Desk Located on the | | | | | | 9th floor | | | | | | [place], [place] | | | | | | [address] | | | +--------+ + + + [...]
--- OUTSIDE RECORDS SUMMARY | ~2019-10-23 | XMS | Encounter Summary ---
Demographics + + + | Address | [address] | | | [place] [address] | + + + | Home Phone [...] | Author | [facility] | + + + | Organization | [facility] [employer] [facility] | + + + | Address | Unknown | + + + | Phone | Unavailable | + + + Support + + +---------+ + | Name | Relationship | Address | Phone | + + +---------+ + | Kaylie Baig | ECON | Unknown | | + + +---------+ + Care Team Providers + +------+ + | Care Flight Control Specialist Name | Role | Phone | [...] | 2017 | Pass | Services at [facility] | | | | | | [address] | | | | | | [place]ola [place] | | | | | | [facility] | | | | | | [place], [place] | | | | | | [address] | | | | | | [phone] | | | +--------+ + + + [...]
--- OUTSIDE RECORDS SUMMARY | ~2019-10-23 | XMS | Encounter Summary ---
Demographics + + + | Address | [address] | | | [place] [address] | + + + | Home Phone [...] + | Author | [facility] [facility] | + + + | Organization | [facility] [employer] [facility] | [...] Providers + +------+ + | Care Machine Sneller Name | Role | Phone | + [...] Pharmacy | | | | | | [address] | | | | | | [place], [place] | | | | | | [address] | | | | | | [phone] | | | +--------+ + + + [...]
--- OUTSIDE RECORDS SUMMARY | ~2019-10-23 | XMS | Encounter Summary ---
Demographics + + + | Address | [address] | | | [place] [address] | + + + | Home Phone [...] + | Author | [facility] [employer] [facility] | + + + | Organization | [facility] [employer] [facility] | + + + | Address | Unknown | + + + | Phone | Unavailable | + + + Support + + +---------+ + | Name | Relationship | Address | Phone | + + +---------+ + | Kaylie Baig | ECON | Unknown | | + + +---------+ + Care Team Providers + +------+ + | Care Boiling Off Winder Name | Role | Phone | + [...] floor | | | | | | [place], [place] | | | | | | [address] | | | +--------+ + + + [...]
--- OUTSIDE RECORDS SUMMARY | ~2019-10-23 | XMS | Encounter Summary ---
Demographics + + + | Address | [address] | | | [place] [address] | + + + | Home Phone [...] | Author | [facility] | + + + | Organization | [facility] [facility] [...] Team Providers + +------+ + | Care Fixture Builder Name | Role | Phone | [...] [place]ball | | | | | Guy [facility] | [address] | | | | | Hospital Admitting | [place], [place] | | | | | Desk Located on the | [address] | | | | | 9th floor | [phone] | | | | | [place], [place] | | | | | | [address] | Mariann Victor CRNA | | | | | | [address] | | | | | | [address] | | | | | | [place], [place] | | | | | | [address] | | | | | | [phone] | | | | | | | [...] | | | | Lumen | Yes; [id number]; 11/09/17; 1154; | | | | | [...]
--- OUTSIDE RECORDS SUMMARY | ~2019-10-23 | XMS | Encounter Summary ---
Demographics + + + | Address | [address] | | | [place] [address] | + + + | Home Phone [...] + | Author | [facility] | + + + | Organization | [facility] [facility] | + + + | Address | Unknown | + + + | Phone | Unavailable | + + + Support + + +---------+ + | Name | Relationship | Address | Phone | + + +---------+ + | Kaylie Baig | ECON | Unknown | | + + +---------+ + Care Team Providers + +------+ + | Care Modeling Analyst Name | Role | Phone | [...] | 2018 | Pass | Services at [facility] | | | | | | [address] | | | | | | [address] | | | | | | [facility], [address] [place] [address] | | | | | | [place], [place] | | | | | | [address] | | | | | | [phone] | | | +--------+ + + + [...]
--- OUTSIDE RECORDS SUMMARY | ~2019-10-23 | XMS | Encounter Summary ---
Demographics + + + | Address | [address] | | | [place] [address] | + + + | Home Phone [...] [facility] | + + + | Organization | Counts Include [facility] [employer] [facility] | + + + | Address | Unknown | + + + | Phone | Unavailable | + + + Support + + +---------+ + | Name | Relationship | Address | Phone | + + +---------+ + | Kaylie Baig | ECON | Unknown | | + + +---------+ + Care Team Providers + +------+ + | Care Marina Dry Dock Manager Name | Role | Phone | [...] Chambers | | | | | Guy [facility] | [address] [place], | | | | | Hospital Admitting | [place] [address] | | | | | Desk Located on the | [phone] | | | | | 9th floor | | | | | | [place], [place] | Patti Forte [place] | | | | | [address] | [address] | | | | | | [address] [facility] | | | | | | [place] [address] | | | | | | [phone] | | | | | | | [...]
--- OUTSIDE RECORDS SUMMARY | ~2019-10-23 | XMS | Clinical Summary ---
Demographics + + + | Address | [address] | | | [place] [address] | + + + | Home Phone | | + + + | Preferred Language | Unknown | + + + | Marital Status | Single | + + + | Caodaism Affiliation | Unknown | + + + | Race | Unknown | + + + | Ethnic Group | Unknown | + + + Author + + + | Author | [facility] | | | and [place] | + + + | Organization | [facility] | | | and [place] | [...] Team Providers + +------+ + | Care Refinish Technician Name | Role | Phone | + +------+ + | [facility] | PCP | | + [...] | + +--------+ +--------+ +---------+--------+ | MEDICAID MCGRTAH | MEDICA | [id number] | | [phone] | | Medica | [...] Person | Self | [birth year] | [address] | | | al/Fam | | 1961 | [phone] | [place] [address] | | | taras | | | 1 (Home) | | + +--------+ +--------+ + + Advance Directives + + + + + | Type | Date Recorded | Patient | Explanation | | | | Public Health Administrator | | + + + + + | Power of | | | | | Primary Clinician | | | | + + + [...]
--- OUTSIDE RECORDS SUMMARY | ~2019-10-23 | XMS | Encounter Summary ---
Demographics + + + | Address | [address] | | | [place] [address] | + + + | Home Phone [...] | [facility] | + + + | Organization | [facility] [employer] [facility] | + + + | Address | Unknown | + + + | Phone | Unavailable | + + + Support + + +---------+ + | Name | Relationship | Address | Phone | + + +---------+ + | Kaylie Baig | ECON | Unknown | | + + +---------+ + Care Team Providers + +------+ + | Care Director Outpatient Services Name | Role | Phone | [...] Chambers | | | | | Guy [facility] | [address] [place], | | | | | Hospital Admitting | [place] [address] | | | | | Desk Located on the | [phone] | | | | | 9th floor | | | | | | [place], [place] | [address]lyn Boss, | | | | | [address] | [address] | | | | | | [address] | | | | | | [place], [place] | | | | | | [address] | | | | | | [phone] | | | | | | | [...] + + + | Periph | 08/31/17; [facility]; Right; | 08/31/17 0000 by | 09/05/178 by | | ansley | Hand; 18 g; 09/05/17; 1717; Per | Guera Gresham RN | Barbie Yu RN | | IV | protocol | | | +--------+ + + + | Periph | 08/31/17; [facility]; Right; | 08/31/17 0000 by | [...]
--- OUTSIDE RECORDS SUMMARY | ~2019-10-23 | XMS | Encounter Summary ---
Demographics + + + | Address | [address] | | | [place] [address] | + + + | Home Phone [...] + | Author | [facility] | + + + | Organization | [facility] | + + + | Address | Unknown | + + + | Phone | Unavailable | + + + Support + + +---------+ + | Name | Relationship | Address | Phone | + + +---------+ + | Kaylie Baig | ECON | Unknown | | + + +---------+ + Care Team Providers + +------+ + | Care Training And Quality Manager Name | Role | Phone | [...] | | | | Rd [facility] | | | | | | Hospital Admitting | | | | | | Desk Located on the | | | | | | 9th floor | | | | | | [place], [place] | | | | | | [address] | | | +--------+ + + + [...]
--- OUTSIDE RECORDS SUMMARY | ~2019-10-23 | XMS | Encounter Summary ---
Demographics + + + | Address | [address] | | | [place] [address] | + + + | Home Phone [...] + | Author | [facility] | + + + | Organization | [facility] [facility] | + [...] Team Providers + +------+ + | Care Funds Transfer Clerk Name | Role | Phone | [...] | | | | | Procedures | [place], [place] | [place] | | | | | REQUEST TO | [address] | [address] | | | | | SURGERY | Phone: | Phone: | | | | | LANDSCAPE ARTIST | [phone] | [phone] | | | | | [place] REPLACE | Fax: | Fax: | | | | | SKULL | [phone] | [phone] | | | | | PLATE/FLAP | | | | | | | [place] REPAIR | | | | | | | SKULL | | | | | | | DEFECT,UP TO | | | | | | | 5CM [place] | | | | | | | REPAIR SKULL | | | | | | | DEFECT,>5CM | | | | | | | [place] | | | | | | | [...] + + + + | 10/31/ | Grants Director | [facility] | Magdiel Stock MD | Skull defect | | 2018 | | [facility] [id number] | [address] | (Primary Dx) | | | | Ave Mailcode: | [address] [place], | | | | | [facility] | [place] [address] | | | | | and [place], | [phone] | | | | | [address] | | | | | | [place], [place] | | | | | | [address] | | | | | | [phone] | | | +--------+ + + + [...]
--- OUTSIDE RECORDS SUMMARY | ~2019-10-23 | XMS | Encounter Summary ---
Demographics + + + | Address | [address] | | | [place] [address] | + + + | Home Phone [...] | Author | [facility] [employer] [facility] | + + + | Organization | [facility] [facility] [...] Team Providers + +------+ + | Care Furnace Caretaker Name | Role | Phone | + [...] [place]ball | | | | | Guy [facility] | [address] | | | | | Hospital Admitting | [place], [place] | | | | | Desk Located on the | [address] | | | | | 9th floor | [phone] | | | | | [place], [place] | | | | | | [address] | Joslyn Boss, | | | | | | [address] | | | | | | [address] | | | | | | [place], [place] | | | | | | [address] | | | | | | [phone] | | | | | | | [...]
--- OUTSIDE RECORDS SUMMARY | ~2019-10-23 | XMS | Encounter Summary ---
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 + | NIALL ANDREWS | [address] | [place] [address] | | | [facility] | | | | | [...] + | [facility] | [address] | [place] [address] | | | [facility] | [...] + + + | Glucose | 98Comment: Prydeinig | 65 - 99 mg/dL | [facility] | | | | Diabetes Association | [...] + | NIALL ANDREWS | [address] | [place] [address] | | | [facility] | | | | | LABORATORY | | | | + + + + + Hemoglobin A1C (03/18/2017 4:17 AM PST) + + + + + + | Component | Value | Ref Range | Performed | Pathologist | | | | | At | Signature | + + + + + + | Hemoglobin | 5.2Comment: The Prydeinig | 4.3 - 6.1 % | [facility] [...] [facility] | [address] | [place] [address] | | | [facility] | | | | [...] + | [facility] | [address] | [place] [address] | | | [facility] | | | | | [...] + | NIALL ANDREWS | [address] | [place] [address] | | | [facility] | | | | | [...] 28 | 21 - 28 mmol/L | [facility] | | | | | | [facility] | | | | | | HEART | | | | | | MEDICAL | | | | | | CENTER | | | | | | LABORATORY | | + + + + + + | Glucose | 198 (H)Comment: Prydeinig | 65 - 99 mg/dL | [facility] | | | | Diabetes Association | [...] [address] | [place] [address] | | | [facility] | | | | | [...] + | [facility] | [address] | [place] [address] | | | [facility] | | | | | [...] + | NIALL ANDREWS | [address] | [place] [address] | | | [facility] | | | | [...] + | [facility] | [address] | [place] [address] | | | [facility] | [...] - 1.030 | [facility] | | | Elaine | | | [facility] | | | [...] + + | CHARISSENOEMadiha ANDREWS | [address] | [place] [address] | | | [facility] | | | | | [...] + | [facility] | [address] | [place] [address] | | | [facility] | | | | | [...] + | [facility] | [address] | [place] [address] | | | [facility] | | | | | [...] + + | Glucose | 125 (H)Comment: Prydeinig | 65 - 99 mg/dL | [facility] [...] + | NIALL ANDREWS | [address] | [place] [address] | | | [facility] | | | | | [...] + + | [facility] | [address] | [place] [address] | | | [facility] | [...] | | | | | | use Asbury 10/325 if ordered. If | | | [...] | | | | | | use Asbury 10/325 if ordered. If | | | [...] scheduled: AC, | | | NPO, Daytime 7115-0594 Use NIGHT | | | DOSE for doses scheduled: | | | HS, 3AM, Nighttime 5535-8597 Only | | | for use with [...]
--- OUTSIDE RECORDS SUMMARY | ~2019-10-23 | XMS | Encounter Summary ---
Demographics + + + | Address | [address] | | | [place] [address] | + + + | Home Phone [...] + | Author | [facility] YES.TAP [facility] | + + + | Organization | [facility] Novan Science [facility] [...] Team Providers + +------+ + | Care Tile Grader Name | Role | Phone | + +------+ + | No Pcp Per Patient | PCP | Unavailable | + +------+ + Encounter Details +--------+ + + + + | Date | Type | Department | Care Team | Description | +--------+ + + + + | 09/24/ | Procedure | Diagnostic Imaging | | | | 2017 | Pass | Services at [facility] | | | | | | [address] | | | | | | [place]ola [place] | | | | | | [facility] | | | | | | [place], [place] | | | | | | [address] | | | | | | [phone] | | | +--------+ + + + [...]
--- OUTSIDE RECORDS SUMMARY | ~2019-10-23 | XMS | Encounter Summary ---
Demographics + + + | Address | [address] | | | [place] [address] | + + + | Home Phone [...] Author + + + | Author | [facility] USEUM [facility] | + + + | Organization | [facility] Unified Office Science [facility] | + + + | Address | Unknown | + + + | Phone | Unavailable | + + + Support + + +---------+ + | Name | Relationship | Address | Phone | + + +---------+ + | Kaylie Baig | ECON | Unknown | | + + +---------+ + Care Team Providers + +------+ + | Care Almond Paste Mixer Name | Role | Phone | + [...] | | | | Guy [facility] | [address] | | | | | Hospital Admitting | [place], [place] | | | | | Desk Located on the | [address] | | | | | 9th floor | [phone] | | | | | [place], [place] | | | | | | [address] | Jennifer Henderson CRNA | | | | | | [address] | | | | | | [place]ola T[place] [facility] | | | | | | [place] [address] | | | | | | [phone] | | | | | | | [...] centrally accessed); | | | | | [id number]; 10/22/17; 1542; | | | | | [...] 1733 by | | g Tube | ([facility] low profile g-tube 18 fr | [...] by | 10/12/171731 by | | | (renick 19fr channel drain); | Valeria Seth RN [...]
--- OUTSIDE RECORDS SUMMARY | ~2019-10-23 | XMS | Encounter Summary ---
Demographics + + + | Address | [address] | | | [place] [address] | + + + | Home Phone [...] | [facility] Wego [facility] | + + + | Organization | [facility] SynapticMash Science [facility] | + [...] Team Providers + +------+ + | Care Tree Driller Name | Role | Phone | + [...] FACILITY | | | | | | [address] | | | | | | [place]ola [place]S | | | | | | [facility], [address] [place] [address] | | | | | | [place], [place] | | | | | | [address] | | | | | | [phone] | | | +--------+ + + + [...]
--- OUTSIDE RECORDS SUMMARY | ~2019-10-23 | XMS | Encounter Summary ---
Demographics + + + | Address | [address] | | | [place] [address] | + + + | Home Phone [...] Author | [facility] GoSurf Accessories [facility] | + + + | Organization | [facility] Project Airplane Science [facility] | + [...] Team Providers + +------+ + | Care Slubber Runner Name | Role | Phone | + [...] | | | | | Rd [facility] | | | | | | Hospital Admitting | | | | | | Desk Located on the | | | | | | 9th floor | | | | | | [place], [place] | | | | | | [address] | | | +--------+ + + + [...]
--- OUTSIDE RECORDS SUMMARY | ~2019-10-23 | XMS | Encounter Summary ---
Demographics + + + | Address | [address] | | | [place] [address] | + + + | Home Phone [...] + | Author | [facility] APImetrics [facility] | + + + | Organization | [facility] [email or web address] [facility] [...] Team Providers + +------+ + | Care Performance Improvement Consultant Name | Role | Phone | [...] | | | | | Guy [facility] | [address] | | | | | Hospital Admitting | [place], [place] | | | | | Desk Located on the | [address] | | | | | 9th floor | [phone] | | | | | [place], [place] | | | | | | [address] | Rg Arriola, | | | | | | [facility] [address] | | | | | | [address] | | | | | | [place], [place] | | | | | | [address] | | | | | | [phone] | | | | | | | [...] centrally accessed); | | | | | [id number]; 10/22/17; 1542; | | | | | [...]
--- OUTSIDE RECORDS SUMMARY | ~2019-10-23 | XMS | Encounter Summary ---
Demographics + + + | Address | [address] | | | [place] [address] | + + + | Home Phone [...] + | Author | [facility] | + + + | Organization | [facility] Sigasi Science [facility] | + [...] Providers + +------+ + | Care Civil Geotechnical Engineer Name | Role | Phone | [...] | | | | | Rd [facility] | | | | | | Hospital Admitting | | | | | | Desk Located on the | | | | | | 9th floor | | | | | | [place], [place] | | | | | | [address] | | | +--------+ + + + [...]
--- OUTSIDE RECORDS SUMMARY | ~2019-10-23 | XMS | Encounter Summary ---
Demographics + + + | Address | [address] | | | [place] [address] | + + + | Home Phone | | + + + | Preferred Language | Unknown | + + + | Marital Status | Single | + + + | Pentecostal Affiliation | PEN | + + + | Race | or | + + + | Ethnic Group | Not or | + + + Author + + + | Author | [facility] | + + + | Organization | [facility] AdTheorent Science [facility] [...] Team Providers + +------+ + | Care Medicaid Specialist Name | Role | Phone | [...] | 2017 | Pass | Services at [facility] | | | | | | [address] | | | | | | [place]ola [place] | | | | | | [facility], [address] [place] [address] | | | | | | [place], [place] | | | | | | [address] | | | | | | [phone] | | | +--------+ + + + [...]
--- OUTSIDE RECORDS SUMMARY | ~2019-10-23 | XMS | Encounter Summary ---
Demographics + + + | Address | [address] | | | [place] [address] | + + + | Home Phone [...] + + + | Author | [facility] K[employer] | + + + | Organization | [facility] Iono Ph[employer] Science [facility] | + + + | Address | Unknown | + + + | Phone | Unavailable | + + + Support + + +---------+ + | Name | Relationship | Address | Phone | + + +---------+ + | Kaylie Baig | ECON | Unknown | | + + +---------+ + Care Team Providers + +------+ + | Care Iphone Developer Name | Role | Phone | [...] | | | | | | Rd [facility] | | | | | | Hospital Admitting | | | | | | Desk Located on the | | | | | | 9th floor | | | | | | [place], [place] | | | | | | [address] | | | +--------+ + + + [...]
--- OUTSIDE RECORDS SUMMARY | ~2019-10-23 | XMS | Encounter Summary ---
Demographics + + + | Address | [address] | | | [place] [address] | + + + | Home Phone [...] + + + | Author | [facility] SWEEPiO [facility] | + + + | Organization | [facility] Asana Science [facility] | + + + | Address | Unknown | + + + | Phone | Unavailable | + + + Support + + +---------+ + | Name | Relationship | Address | Phone | + + +---------+ + | Kaylie Baig | ECON | Unknown | | + + +---------+ + Care Team Providers + +------+ + | Care Education Coordinator Name | Role | Phone | [...] | | Guy [facility] | [address] [place], | | | | | Hospital Admitting | [place] [address] | | | | | Desk Located on the | [phone] | | | | | 9th floor | | | | | | [place], [place] | Patti Forte MD | | | | | [address] | [address] | | | | | | [place]ola [place] [facility] | | | | | | [place] [address] | | | | | | [phone] | | | | | | | [...] + | Incisi | 10/10/17; 1039; Tammy CARBERA; | 10/10/17 1039 by | 11/17/17 0200 by | | on | Midline; abdomen; 11/17/17; 0200 | Katrin Watson RN | Brissa Yost RN | +--------+ + + + | Drain | 10/12/17; 1700; MD Surendra; JERONIMO; | 10/12/17 1700 by | 11/01/17 1200 by | | | Right; Anterior; adb- lower | Valeria eSth RN | Maryan Kumar RN | | [...]
--- OUTSIDE RECORDS SUMMARY | ~2019-10-23 | XMS | Encounter Summary ---
Demographics + + + | Address | [address] | | | [place] [address] | + + + | Home Phone [...] | Author | [facility] [employer] [facility] | + + + | Organization | [facility] Dapper Science [facility] | + + + | Address | Unknown | + + + | Phone | Unavailable | + + + Support + + +---------+ + | Name | Relationship | Address | Phone | + + +---------+ + | Kaylie Baig | ECON | Unknown | | + + +---------+ + Care Team Providers + +------+ + | Care Electrode Turner And Finisher Name | Role | Phone | + [...] + + + + | 09/15/ | Seaport Planning Manager | Neurosurgery at | Dallin Bourgeois, | Other closed | | 2018 | | [facility] [address] | MD [address] | nondisplaced | | | | Ave Mailcode: CH8N | [address] | fracture of seventh | | | | [place] for [facility] | [facility] [place] | cervical vertebra | | | | and Healing, | [address] | with routine | | | | Building , | [phone] | healing, subsequent | | | | Floor [place], [place] | | encounter (Primary | | | | [address] | | Dx) | | | | [phone] | | | +--------+ + + + [...]
--- OUTSIDE RECORDS SUMMARY | ~2019-10-23 | XMS | Clinical Summary ---
Demographics + + + | Address | [address] | | | [place] [address] | + + + | Home Phone [...] Providers + +------+ + | Care Staff Nurse Name | Role | Phone | + +------+ + | No Pcp Per Patient | PCP | Unavailable | + +------+ + Source Comments SELENA is fully live on both [facility] and [facility] InPatient.[facility] [...] | / | | MD Magdiel at [facility] | | | | | | /[id number] | | REV LOC | | | | | | 43 | + +------+--------+ +--------+--------+--------+ + + | Description:151mm x 125mm | | FT/Right-Ster | + + + +---+--------+ +---+---+--------+ | Screw Bone 4mm 1.55mm 2.55mm | | Right: | [facility] | | | 04.503 | | Matrixneuro | | Head | | | | .104.0 | | Craniomaxillofacial Titanium | | | | | | 5 / / | | Self Drill Nonsterile - | | | | | | | | [id number]: Qty: 11 | | | | | | | | on 11/05/2017 by Dayami, | | | | | | | | MD Magdiel at [facility] | | | | | [...] | | | | | | | [id number]: Qty: | | | | | | | | 1Explanted: Qty: 1 on | | | | | | | | 11/05/2017 at [facility] | | | | | [...] | | | + +--------+ +--------+-------+---------+--------+ | F[employer]EL [employer] TE[employer] MEDICAID | 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
--- OUTSIDE RECORDS SUMMARY | ~2019-10-23 | XMS | Encounter Summary ---
Demographics + + + | Address | [address] | | | [place] [address] | + + + | Home Phone [...] Author | [facility] [employer] [facility] | + + + | Organization | [facility] BigDeal Science [facility] | + + + | Address | Unknown | + + + | Phone | Unavailable | + + + Support + + +---------+ + | Name | Relationship | Address | Phone | + + +---------+ + | Kaylie Baig | ECON | Unknown | | + + +---------+ + Care Team Providers + +------+ + | Care Blowing Engineer Name | Role | Phone | [...] CENTER | | | | | | [address] | | | | | | [place]ola [place] | | | | | | [facility], [address] [place] [address] | | | | | | [place], [place] | | | | | | [address] | | | | | | [phone] | | | +--------+ + + + [...]
--- OUTSIDE RECORDS SUMMARY | ~2019-10-23 | XMS | Encounter Summary ---
Demographics + + + | Address | [address] | | | [place] [address] | + + + | Home Phone [...] | Author | [facility] [email or web address] [facility] | + + + | Organization | [facility] Katuah [employer] [facility] | + [...] Providers + +------+ + | Care Wood Block Artist Name | Role | Phone | [...] | | | | | Rd [facility] | | | | | | Hospital Admitting | | | | | | Desk Located on the | | | | | | 9th floor | | | | | | [place], [place] | | | | | | [address] | | | +--------+ + + + [...]
--- OUTSIDE RECORDS SUMMARY | ~2019-10-23 | XMS | Encounter Summary ---
Demographics + + + | Address | [address] | | | [place] [address] | + + + | Home Phone [...] Author + + + | Author | [facility] | + + + | Organization | [facility] SysClass [facility] | + [...] Team Providers + +------+ + | Care Cover Creaser Name | Role | Phone | + [...] CLINIC | | | | | | [address] | | | | | | [place]ola [place]S | | | | | | [facility], [address] [place] [address] | | | | | | [place], [place] | | | | | | [address] | | | | | | [phone] | | | +--------+ + + + [...]
--- OUTSIDE RECORDS SUMMARY | ~2019-10-23 | XMS | Encounter Summary ---
Demographics + + + | Address | [address] | | | [place] [address] | + + + | Home Phone [...] + + | Author | [facility]ens[employer] | + + + | Organization | [facility] [employer] [facility] [...] Team Providers + +------+ + | Care [place] Coordinator Name | Role | Phone | [...] | | | | | Rd [facility] | | | | | | Hospital Admitting | | | | | | Desk Located on the | | | | | | 9th floor | | | | | | [place], [place] | | | | | | [address] | | | +--------+ + + + [...]
--- OUTSIDE RECORDS SUMMARY | ~2019-10-23 | XMS | Encounter Summary ---
Demographics + + + | Address | [address] | | | [place] [address] | + + + | Home Phone [...] [facility] PUSH [employer] [facility] | + + + | Organization | [facility] Tekora Science [facility] [...] Team Providers + +------+ + | Care Fire Extinguisher Inspector Name | Role | Phone | [...] | | | | | Rd [facility] | | | | | | Hospital Admitting | | | | | | Desk Located on the | | | | | | 9th floor | | | | | | [place], [place] | | | | | | [address] | | | +--------+ + + + [...]
--- OUTSIDE RECORDS SUMMARY | ~2019-10-23 | XMS | Encounter Summary ---
Demographics + + + | Address | [address] | | | [place] [address] | + + + | Home Phone [...] | Author | [facility] Telespree [facility] | + + + | Organization | [facility] VenueJam Science [facility] | + + + | Address | Unknown | + + + | Phone | Unavailable | + + + Support + + +---------+ + | Name | Relationship | Address | Phone | + + +---------+ + | Kyalie Baig | ECON | Unknown | | + + +---------+ + Care Team Providers + +------+ + | Care Kitchen Mechanic Name | Role | Phone | [...] Pharmacy | | | | | | [address] | | | | | | Loop [place], [place] | | | | | | [address] | | | | | | [phone] | | | +--------+ + + + [...]
--- OUTSIDE RECORDS SUMMARY | ~2019-10-23 | XMS | Encounter Summary ---
Demographics + + + | Address | [address] | | | [place] [address] | + + + | Home Phone [...] + + | Author | [facility] | + + + | Organization | [facility] [...] Team Providers + +------+ + | Care Tourist Escort Name | Role | Phone | + [...] floor | | | | | | [place], [place] | | | | | | [address] | | | +--------+ + + + [...]
--- OUTSIDE RECORDS SUMMARY | ~2019-10-23 | XMS | Encounter Summary ---
Demographics + + + | Address | [address] | | | [place] [address] | + + + | Home Phone [...] + | Author | [facility] | + + + | Organization | [facility] SeeControl [facility] [...] Team Providers + +------+ + | Care Inspector Rough Castings Name | Role | Phone | + [...] [place] | | | | | | [facility], [address] [place] [address] | | | | | | [place], [place] | | | | | | [address] | | | | | | [phone] | | | +--------+ + + + [...]
--- OUTSIDE RECORDS SUMMARY | ~2019-10-23 | XMS | Encounter Summary ---
Demographics + + + | Address | [address] | | | [place] [address] | + + + | Home Phone [...] + | Author | [facility] Do Now I Don't [facility] | + + + | Organization | [facility] Medical Talents [employer] [facility] [...] Team Providers + +------+ + | Care Lock Master Name | Role | Phone | + [...] HOSPITAL | | | | | | [address] | | | | | | [place]ola [place] | | | | | | [facility], [address] [place] [address] | | | | | | [place], [place] | | | | | | [address] | | | | | | [phone] | | | +--------+ + + + [...]
--- OUTSIDE RECORDS SUMMARY | ~2019-10-23 | XMS | Encounter Summary ---
Demographics + + + | Address | [address] | | | [place] [address] | + + + | Home Phone [...] + + | Author | [facility] | + + + | Organization | [facility] [employer] [facility] | + + + | Address | Unknown | + + + | Phone | Unavailable | + + + Support + + +---------+ + | Name | Relationship | Address | Phone | + + +---------+ + | Kaylie Baig | ECON | Unknown | | + + +---------+ + Care Team Providers + +------+ + | Care Primary Care Physician Name | Role | Phone | + +------+ + | No Pcp Per Patient | PCP | Unavailable | + +------+ + Encounter Details +--------+ + + + + | Date | Type | Department | Care Team | Description | +--------+ + + + + | 08/31/ | Procedure | Diagnostic Imaging | | | | 2018 | Pass | Services at [facility] | | | | | | [address] | | | | | | [place] | | | | | | [facility] | | | | | | [place], [place] | | | | | | [address] | | | | | | [phone] | | | +--------+ + + + [...]
--- OUTSIDE RECORDS SUMMARY | ~2019-10-23 | XMS | Encounter Summary ---
Demographics + + + | Address | [address] | | | [place] [address] | + + + | Home Phone [...] [facility] | + + + | Organization | [facility] [employer] [facility] | + [...] Team Providers + +------+ + | Care Statistical Reporting Analyst Name | Role | Phone | [...] | | | | Hospital Admitting | [place], [place] | | | | | Desk Located on the | [address] | | | | | 9th floor | [phone] | | | | | [place], [place] | | | | | | [address] | Joslyn Boss, | | | | | | [address] | | | | | | [address] | | | | | | [place], [place] | | | | | | [address] | | | | | | [phone] | | | | | | | [...]
--- OUTSIDE RECORDS SUMMARY | ~2019-10-23 | XMS | Encounter Summary ---
Demographics + + + | Address | [address] | | | [place] [address] | + + + | Home Phone [...] | Author | [facility] | + + + | Organization | [facility] [employer] [facility] | + + + | Address | Unknown | + + + | Phone | Unavailable | + + + Support + + +---------+ + | Name | Relationship | Address | Phone | + + +---------+ + | Kaylie Baig | ECON | Unknown | | + + +---------+ + Care Team Providers + +------+ + | Care Teller Head Name | Role | Phone | [...] floor | | | | | | [place], [place] | | | | | | [address] | | | +--------+ + + + [...]
--- OUTSIDE RECORDS SUMMARY | ~2019-10-23 | XMS | Encounter Summary ---
Demographics + + + | Address | [address] | | | [place] [address] | + + + | Home Phone [...] | [facility] [facility] | + + + | Organization | [facility] [employer] [facility] [...] Team Providers + +------+ + | Care Echo Vascular Technologist Name | Role | Phone | + [...] floor | | | | | | [place], [place] | | | | | | [address] | | | +--------+ + + + [...]
--- OUTSIDE RECORDS SUMMARY | ~2019-10-23 | XMS | Encounter Summary ---
Demographics + + + | Address | [address] | | | [place] [address] | + + + | Home Phone [...] + | Author | [facility] [employer] [facility] | + + + | Organization | [facility] [facility] | + + + | Address | Unknown | + + + | Phone | Unavailable | + + + Support + + +---------+ + | Name | Relationship | Address | Phone | + + +---------+ + | Kaylie Baig | ECON | Unknown | | + + +---------+ + Care Team Providers + +------+ + | Care Slot Floor Person Name | Role | Phone | [...] [address] | | | | | [facility] | [address] | | | | | Hospital Admitting | [place], [place] | | | | | Desk Located on the | [address] | | | | | 9th floor | [phone] | | | | | [place], [place] | | | | | | [address] | Mariann Victor CRNA | | | | | | [address] | | | | | | [address] | | | | | | [place], [place] | | | | | | [address] | | | | | | [phone] | | | | | | | [...] | | | | Lumen | Yes; [id number]; 11/09/17; 1154; | | | | | [...]
== END 2019-10-23 05:19 | disposition home or self-care (01) ==
LOC: ED 04:12
DX: S63.617A Unspecified sprain of left little finger, initial encounter (principal); W19.XXXA Unspecified fall, initial encounter
CPT/HCPCS: 73130; 99283-25

== ENCOUNTER 2019-11-13 22:55 | Emergency (ER) | payer OTHER ==
[~2019-11-13] VITALS: Ht 165.1 cm; Wt 68.0 kg
--- OUTSIDE RECORDS SUMMARY | ~2019-11-13 | XMS | Encounter Summary ---
Demographics + + + | Address | [address] | | | [place] [address] | + + + | Home Phone | | + + + | Preferred Language | Unknown | + + + | Marital Status | Single | + + + | Holiness Affiliation | PEN | + + + | Race | or | + + + | Ethnic Group | Not or | + + + Author + + + | Author | [facility] [employer] [facility] | + + + | Organization | [facility] [employer] [facility] | + + + | Address | Unknown | + + + | Phone | Unavailable | + + + Support + + +---------+ + | Name | Relationship | Address | Phone | + + +---------+ + | Kaylie Baig | ECON | Unknown | | + + +---------+ + Care Team Providers + +------+ + | Care Livestock Slaughterer Name | Role | Phone | + [...] floor | | | | | | [place], [place] | | | | | | [address] | | | +--------+ + + + [...]
--- OUTSIDE RECORDS SUMMARY | ~2019-11-13 | XMS | Encounter Summary ---
Demographics + + + | Address | [address] | | | [place] [address] | + + + | Home Phone | | + + + | Preferred Language | Unknown | + + + | Marital Status | Single | + + + | Roman Catholic Affiliation | PEN | + + + | Race | or | + + + | Ethnic Group | Not or | + + + Author + + + | Author | [facility] [employer] | + + + | Organization | [facility] [employer] [facility] | + + + | Address | Unknown | + + + | Phone | Unavailable | + + + Support + + +---------+ + | Name | Relationship | Address | Phone | + + +---------+ + | Kaylie Baig | ECON | Unknown | | + + +---------+ + Care Team Providers + +------+ + | Care Battery Installer Name | Role | Phone | + [...] | | | | | | Rd [facility] | | | | | | Hospital Admitting | | | | | | Desk Located on the | | | | | | 9th floor | | | | | | [place], [place] | | | | | | [address] | | | +--------+ + + + [...]
--- OUTSIDE RECORDS SUMMARY | ~2019-11-13 | XMS | Encounter Summary ---
Demographics + + + | Address | [address] | | | [place] [address] | + + + | Home Phone | | + + + | Preferred Language | Unknown | + + + | Marital Status | Single | + + + | Yazdanism Affiliation | PEN | + + + | Race | or | + + + | Ethnic Group | Not or | + + + Author + + + | Author | [facility] | + + + | Organization | [facility] [employer] [facility] [...] Team Providers + +------+ + | Care Spring Layer Name | Role | Phone | + [...] floor | | | | | | [place], [place] | | | | | | [address] | | | +--------+ + + + [...]
--- OUTSIDE RECORDS SUMMARY | ~2019-11-13 | XMS | Encounter Summary ---
Demographics + + + | Address | [address] | | | [place] [address] | + + + | Home Phone [...] | Author | [facility] [employer] [facility] | + + + | Organization | [facility] [employer] [facility] | + + + | Address | Unknown | + + + | Phone | Unavailable | + + + Support + + +---------+ + | Name | Relationship | Address | Phone | + + +---------+ + | Kaylie Baig | ECON | Unknown | | + + +---------+ + Care Team Providers + +------+ + | Care Acid Wash Operator Name | Role | Phone | [...] | 2018 | Pass | Services at [facility] | | | | | | [address] | | | | | | [place] | | | | | | [facility], [address] [place] [address] | | | | | | [place], [place] | | | | | | [address] | | | | | | [phone] | | | +--------+ + + + [...]
--- OUTSIDE RECORDS SUMMARY | ~2019-11-13 | XMS | Encounter Summary ---
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 c/o RODRIGUEZ pain. CIWA [...] - SW following lan of Care - Sulemanjohn son, Poonam Snyder RN - 03/17/2017 2:21 [...] Room # 803/803-01 ISO: None Item for computer security coordinator Comments Shift Summary: Include Pain RX HX: on 02/05 pt had ICH with [facility] to R side, bone out-helmet in room, to be on when oob. CIWA 1-15. Pain to head-Seaside. Encourage pt not to lay on r [...] Discharge plan TBD lan of Care - Linda wheeler, Giovanna Dumont RN - 03/17/2017 12:56 PM PSTMet with patient to discuss the Hospitalist yamilka alanis in their care. Confirmed PCP as someone at [facility]. Verified that H&P was sent to [facility], notified patient that this was done. Discharge plan pending, CTC to follow. lan of Care - Mamie Fuchs RN - 03/17/2017 4:25 AM PST Problem: Patient Care Overview (Adult) Goal: Personalization Berlin likes the door open 8N & 8S Nursing Progress Note Patient Name: Berlin Temple Room # 803/803-01 ISO: None Item for computer security coordinator Comments Shift Summary: Include Pain RX HX: [...] plan TBD lan of Care - Lennox Boles, RN - 03/16/2017 3:42 PM PSTFormatting of this note might be different from t he original. Problem: Patient Care Overview (Adult) Goal: [...] Room # 803/803-01 ISO: None Item for computer security coordinator Comments Shift Summary: Include Pain RX Here for acute encephalopathy, ETOH abuse. On 02/05 pt [facility] to [facility] side, bone out-helmet in room, to be on when OOB or when pt lying on R side. CIWA 2-19. Seaside for pain working well. Neuro See note NIH Stroke Scale Total Score no Tele Yes: [] What is the rhythm: no Diet Active Orders Diet Diet general; nectar thick; Effective Now How patient takes medications: Whole with thins Mobility/Braces/HRF Interventions: No OOB yet Last bowel movement: DEBEAKER Restraints no TeleSitter or Bedside Sitter no Discharge plan TBD lan of Care - Poonam Li RN - 03/16/2017 1:54 [...] Room # 803/803-01 ISO: None Item for computer security coordinator Comments Shift Summary: Include Pain RX Acute encephalopathy, ETOH abuse, HX craniotomy HX: on 02/05 pt had ICH [facility]otomy [facility] ([facility]) to R side, bone out-helmet in room, to be on when oob. CIWA 2-19. Pain to head-Seaside. Encourage pt not to lay on r britni e of head. Pt became very agitated with CIWA score of 19 at ~1245 and received 2 mg Ativan. VSS. Pain to head, receiving 5 mg Seaside. Diet down-graded to gen with nectars d/t coughing w / thins. Neuro Clearing, A/O NIH Stroke Scale Total Score Tele Yes: [] What is the rhythm: Diet Active Orders Diet Diet general; Effective Now How patient takes medications: Whole with thins Mobility/Braces/HRF Interventions: Helmet on WOB Last bowel movement: Restraints TeleSitter or Bedside Sitter Discharge plan Pending lan of Care - Mamie Hurtado RN - 03/16/2017 7:41 AM PSTFormatting of this note might be different from the juanita fang. Problem: Patient Care Overview (Adult) Goal: Personalization Needs & Preferences 8N & 8S Nursing Progress Note Patient Name: Berlin Lyle Room # 803/803-01 ISO: None Item for computer security coordinator Comments Shift Summary: Include Pain RX HX: on 02/05 pt had ICH with craniotomy to r side of head, bone out-helmet in room, to be on when oob. HX: ETOH abuse, CIWA 9-11. Pain to head-Norc o. Left note on chart to that pt requests more pain meds. Homeless. 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 The patient was h ospitalized for one month at [facility]. He underwent decompressive craniecto my and was discharged without a bone flap in place. He has a 3 month follow-up for craniopl asty. Since his discharge on 03/08 from [facility] the patient has been in an d out of emergency departments [facility] as well as [facility]. His discharge is usually to the local retirement because the patient is homeless. He has a history of alcohol abuse and per records most recently drank 3 days ago. He presents to the emergency department here at [facility] on 05/15 after being seen at [facility] on the same day. His chief complaint was headache, dizziness and weakness. He suffered a fall in the emergency department here at [facility]. In the ED he was found to [...] | | n - | | | 17/ | | | 2017 | | | 2:07 | | | [...] L?MRN: | | | | | | [id number] | | | [id number] | | | his | | | [...] | | | 2017 | | | [place] | | | | | | Region [...] the | | | | | | access specialist | | | al | | | [...] | | | [place] | | | steh[place]ie | | | Commun | | | [...] the | | | | | | access specialist | | | al | | | [...] the | | | | | | access specialist | | | al | | | cause | | | Sep | | | 6, | | | 2017 | | | [place] | | | | | | Region [...] | | | 2017 | | | [place] | | | | | | Region [...] Acuity | | | | | | [place] | | | ia | | | Kem | | | Memori | | | al | | | Hospit | | | al | | | [place] | | | 1 0 | | [...] | | | 0 | | | [place] | | | | | | Region [...] | | | 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 | | | [phone] | | | or go | | [...] | | | Dates | | | [place] | | | | | | Neighb [...] | | | ? | | | 2017 | | | Collec | | | [...] | | | icalte | | | [employer] | | | | +---+--------+ + +---+ [...] + | [facility] | [address] | [place] [address] | | | [facility] | | | | | LABORATORY | [...] + | [facility] | [address] | [place] [address] | | | [facility] | | | | | LABORATORY [...] + | [facility] | [address] | [place] [address] | | | [facility] | | | | | LABORATORY | [...] + | [facility] | [address] | [place] [address] | | | [facility] | [...] + + + | Glucose | 98Comment: Chilean | 65 - 99 mg/dL | [facility] | | | | Diabetes Association | [...] + + | [facility] | [address] | [place] [address] | | | [facility] | | | | | LABORATORY | | | | + + + + + Hemoglobin A1C (03/18/2017 4:17 AM PST) + + + + + + | Component | Value | Ref Range | Performed | Pathologist | | | | | At | Signature | + + + + + + | Hemoglobin | 5.2Comment: The Chilean | 4.3 - 6.1 % | [facility] [...] + + + + + | [facility] | [address] | [place] [address] | | | [facility] | | | | | LABORATORY | | | | + + + + + POC Glucose (03/17/2017 9:26 PM PST) + +-------+ + + + | Component | Value | Ref Range | Performed | Pathologist | | | | | At | Signature | + +-------+ + + + | Glucose, | 87 | 65 - 99 mg/dL | [facility] [...] + + | [facility] | [address] | [place] [address] | | | [facility] | | | | | LABORATORY | [...] + + | [facility] | [address] | [place] [address] | | | [facility] | | | | | [...] 28 | 21 - 28 mmol/L | [facility] | | | | | | [facility] | | | | | | HEART | | | | | | MEDICAL | | | | | | CENTER | | | | | | LABORATORY | | + + + + + + | Glucose | 198 (H)Comment: Chilean | 65 - 99 mg/dL | [facility] | | | | Diabetes Association | [...] + | [facility] | [address] | [place] [address] | | | [facility] | | | | | LABORATORY | | | | + + + + + Phosphorus (03/16/2017 1:26 AM PST) + +-------+ + + + | Component | Value | Ref Range | Performed | Pathologist | | | | | At | Signature | + +-------+ + + + | Phosphorus | 4.0 | 2.3 - 4.8 mg/dL | [facility] | | | | | | [facility] | | | | | | HEART [...] + + | [facility] | [address] | [place] [address] | | | [facility] | | | | | LABORATORY | [...] + + | [facility] | [address] | [place] [address] | | | [facility] | | | | | LABORATORY [...] + + | Performing | Address | City/State/[facility] | Phone Number | | [...] + | [facility] | [address] | [place] [address] | | | [facility] | [...] - 1.030 | [facility] | | | [place] | | | [facility] | | | [...] | + + + + + | [facility] | [address] | [place] [address] | | | [facility] | | | | | LABORATORY | [...] + | [facility] | [address] | [place] [address] | | | [facility] | | | | | LABORATORY | [...] + + | [facility] | [address] | [place] [address] | | | [facility] | | | | | LABORATORY | [...] + + | Glucose | 125 (H)Comment: Chilean | 65 - 99 mg/dL | [facility] [...] | + + + + + | [facility] | [address] [place] [address]. | [place] [address] | | | [facility] | | | | | LABORATORY | [...] + + + + + | [facility] | [address] | [place] [address] | | | [facility] | [...] +-------+ +-------+---+---+ +-------+ +-------+---+---+ | Given | 03/17/20 | 10 mg | | | | [...] | | | | | | use Seaside 10/325 if ordered. If | | | [...] | | | | | | use Seaside 10/325 if ordered. If | | | [...] scheduled: AC, | | | NPO, Daytime 1821-0567 Use NIGHT | | | DOSE for doses scheduled: | | | HS, 3AM, Nighttime 5026-5896 Only | | | for use with [...]
--- OUTSIDE RECORDS SUMMARY | ~2019-11-13 | XMS | Encounter Summary ---
Demographics + + + | Address | [address] | | | [place] [address] | + + + | Home Phone [...] + + | Author | [facility] | + + + | Organization | [facility] [...] Team Providers + +------+ + | Care Fisher Quahog Name | Role | Phone | + [...] | | | | | Procedures | [place], [place] | [place] | | | | | [place]QUEST [place] | [address] | [address] | | | | | SURGERY | Phone: | Phone: | | | | | LINING FOLDER | [phone] | [phone] | | | | | NM REPLACE | Fax: | Fax: | | | | | SKULL | [phone] | [phone] | | | | | PLATE/FLAP | | | | | | | NM REPAIR | | | | | | | SKULL | | | | | | | DEFECT,UP TO | | | | | | | 5CM NM | | | | | | | REPAIR SKULL | | | | | | | DEFECT,>5CM | | | | | | | NM | | | | | | | [...] + + + + | 10/31/ | Sales Engagement Executive | [facility] | Magdiel Stock MD | Skull defect | | 2018 | | [facility] [address] | [address] | (Primary Dx) | | | | annabelle [place] for | [place], | | | | | [facility], | [place] [address] | | | | | [place] [address] | [phone] | | | | | [place], [place] | | | | | | [address] | | | | | | [phone] | | | +--------+ + + + [...]
--- OUTSIDE RECORDS SUMMARY | ~2019-11-13 | XMS | Encounter Summary ---
Demographics + + + | Address | [address] | | | [place] [address] | + + + | Home Phone [...] | Author | [facility] | + + + | Organization | [facility] Face to Face [employer] [facility] | [...] Team Providers + +------+ + | Care Hand Silvering Supervisor Name | Role | Phone | [...] | | | | | | Rd [facility] | | | | | | Hospital Admitting | | | | | | Desk Located on the | | | | | | 9th floor | | | | | | [place], [place] | | | | | | [address] | | | +--------+ + + + [...]
--- OUTSIDE RECORDS SUMMARY | ~2019-11-13 | XMS | Encounter Summary ---
Demographics + + + | Address | [address] | | | [place] [address] | + + + | Home Phone [...] + + | Author | [facility] | + + + | Organization | [facility] [facility] | + + + | Address | Unknown | + + + | Phone | Unavailable | + + + Support + + +---------+ + | Name | Relationship | Address | Phone | + + +---------+ + | Kaylie Baig | ECON | Unknown | | + + +---------+ + Care Team Providers + +------+ + | Care Forge Press Operator Name | Role | Phone | [...] | 2018 | Pass | Services at [facility] | | | | | | [address] | | | | | | [place] | | | | | | [facility], [address] [place] [address] | | | | | | [place], [place] | | | | | | [address] | | | | | | [phone] | | | +--------+ + + + [...]
--- OUTSIDE RECORDS SUMMARY | ~2019-11-13 | XMS | Encounter Summary ---
Demographics + + + | Address | [address] | | | [place] [address] | + + + | Home Phone [...] | Author | [facility] | + + + | Organization | [facility] [employer] [facility] | [...] Team Providers + +------+ + | Care Tool Shaper Set Up Operator Name | Role | Phone | [...] | | | | Hospital Admitting | [place], [place] | | | | | Desk Located on the | [address] | | | | | 9th floor | [phone] | | | | | [place], [place] | | | | | | [address] | Mariann Victor CRNA | | | | | | [address] | | | | | | [address] | | | | | | [place], [place] | | | | | | [address] | | | | | | [phone] | | | | | | | [...] | | | | Lumen | Yes; [id number]; 11/09/17; 1154; | | | | | [...]
--- OUTSIDE RECORDS SUMMARY | ~2019-11-13 | XMS | Encounter Summary ---
Demographics + + + | Address | [address] | | | [place] [address] | + + + | Home Phone [...] Author | [facility] | + + + | Organization | [facility] [employer]ron[employer] [facility] | + [...] Team Providers + +------+ + | Care Education Professor Name | Role | Phone | + [...] Pharmacy | | | | | | [address] | | | | | | [place], [place] | | | | | | [address] | | | | | | [phone] | | | +--------+ + + + [...]
--- OUTSIDE RECORDS SUMMARY | ~2019-11-13 | XMS | Clinical Summary ---
Demographics + + + | Address | [address] | | | [place] [address] | + + + | Home Phone | | + + + | Preferred Language | Unknown | + + + | Marital Status | Single | + + + | Yazdanism Affiliation | Unknown | + + + | Race | Unknown | + + + | Ethnic Group | Unknown | + + + Author + + + | Author | [facility] | | | and [place] | + + + | Organization | [facility] | | | and [place] [...] Providers + +------+ + | Care Marina Porter Name | Role | Phone | + +------+ + | [facility] | PCP | | + +------+ [...] +---------+--------+ | MEDICAID [facility] | MEDICA | [id number] | | [phone] | | Medica | [...] + +--------+ +--------+ + + | [place] Tmeple | Person | Self | [birth year] | [address] | | | al/Fam | | 1961 | [phone] | [place] [address] | | | taras | | | 1 (Home) | | + +--------+ +--------+ + + Advance Directives + + + + + | Type | Date Recorded | Patient | Explanation | | | | Project Technician | | + + + + + | Power of | | | | | Cylinder Grinder | | | | + + + [...]
--- OUTSIDE RECORDS SUMMARY | ~2019-11-13 | XMS | Encounter Summary ---
Demographics + + + | Address | [address] | | | [place] [address] | + + + | Home Phone [...] + | Author | [facility] | + + + | Organization | [facility] | + + + | Address | Unknown | + + + | Phone | Unavailable | + + + Support + + +---------+ + | Name | Relationship | Address | Phone | + + +---------+ + | Kaylie Baig | ECON | Unknown | | + + +---------+ + Care Team Providers + +------+ + | Care Correctional Facility Nurse Name | Role | Phone | [...] | | | | Hospital Admitting | [place], [place] | | | | | Desk Located on the | [address] | | | | | 9th floor | [phone] | | | | | [place], [place] | | | | | | [address] | Rg [place], | | | | | | [facility] [address] | | | | | | [address] | | | | | | [place], [place] | | | | | | [address] | | | | | | [phone] | | | | | | | | +--------+ + + + + Anesthesia Record + + + + + | Procedure Name | Responsible | Anesthesia Start | Anesthesia Stop Time | | | Anesthesiologist | Time | | + + + + + | OPEN GASTROSTOMY | Juve Menjivra, | 10/10/17 0720 | 10/10/17 1244 | [...] centrally accessed); | | | | | [id number]; 10/22/17; 1542; | | | | | [...] RN | Pallavi Kumar RN | | Mitaret | 10/11/17; 1635 | | | | [...] 10:28 | | | | | Starting Hso 10/10/17 at 1028, | | AM PDT [...]
--- OUTSIDE RECORDS SUMMARY | ~2019-11-13 | XMS | Encounter Summary ---
Demographics + + + | Address | [address] | | | [place] [address] | + + + | Home Phone [...] | Author | [facility] | + + + | Organization | [facility] | + + + | Address | Unknown | + + + | Phone | Unavailable | + + + Support + + +---------+ + | Name | Relationship | Address | Phone | + + +---------+ + | Kaylie Baig | ECON | Unknown | | + + +---------+ + Care Team Providers + +------+ + | Care Physical Therapy Asst Name | Role | Phone | [...] Chambers | | | | | [facility] | [place], | | | | | Hospital Admitting | [place] [address] | | | | | Desk Located on the | [phone] | | | | | 9th floor | | | | | | [place], [place] | Patti Forte MD | | | | | [address] | [address] | | | | | | [address] [facility] | | | | | | [place] [address] | | | | | | [phone] | | | | | | | [...] | 1 | Note | Kelly with Jhon Mesa | | | 2 | | [...]
--- OUTSIDE RECORDS SUMMARY | ~2019-11-13 | XMS | Encounter Summary ---
Demographics + + + | Address | [address] | | | [place] [address] | + + + | Home Phone [...] + | Author | [facility] | + + + | Organization | [facility] [employer] [facility] [...] Team Providers + +------+ + | Care Relocation Specialist Name | Role | Phone | [...] | | | | Hospital Admitting | [place], [place] | | | | | Desk Located on the | [address] | | | | | 9th floor | [phone] | | | | | [place], [place] | | | | | | [address] | Jennifer Henderson CRNA | | | | | | [address] | | | | | | [place] [facility] [facility] | | | | | | [place] [address] | | | | | | [phone] | | | | | | | [...] centrally accessed); | | | | | [id number]; 10/22/17; 1542; | | | | | [...] 1733 by | | g Tube | ([facility] low profile g-tube 18 fr | [...] by | 10/12/171731 by | | | (bl[place] 19fr channel drain); | Valeria Seth RN [...] | G-tube (Donte Tube); Abdomen UL; | Droeen Lopez RN | RT Mustapha | | [...]
--- OUTSIDE RECORDS SUMMARY | ~2019-11-13 | XMS | Encounter Summary ---
Demographics + + + | Address | [address] | | | [place] [address] | + + + | Home Phone [...] + | Author | [facility] | + + + | Organization | [facility] [employer] [facility] | + + + | Address | Unknown | + + + | Phone | Unavailable | + + + Support + + +---------+ + | Name | Relationship | Address | Phone | + + +---------+ + | Kaylie Baig | ECON | Unknown | | + + +---------+ + Care Team Providers + +------+ + | Care Carcass Washer Name | Role | Phone | + +------+ + | No Pcp Per Patient | PCP | Unavailable | + +------+ + Encounter Details +--------+ + + + + | Date | Type | Department | Care Team | Description | +--------+ + + + + | 10/22/ | Procedure | Diagnostic Imaging | | | | 2017 | Pass | Services at [facility] | | | | | | [address] | | | | | | [place] | | | | | | [facility], [address] [place] [address] | | | | | | [place], [place] | | | | | | [address] | | | | | | [phone] | | | +--------+ + + + [...]
--- OUTSIDE RECORDS SUMMARY | ~2019-11-13 | XMS | Encounter Summary ---
Demographics + + + | Address | [address] | | | [place] [address] | + + + | Home Phone [...] + | Author | [facility] [facility] | + + + | Organization | [facility] [...] Team Providers + +------+ + | Care Airplane Technician Name | Role | Phone | [...] | | | | | | Rd [facility] | | | | | | Hospital Admitting | | | | | | Desk Located on the | | | | | | 9th floor | | | | | | [place], [place] | | | | | | [address] | | | +--------+ + + + [...]
--- OUTSIDE RECORDS SUMMARY | ~2019-11-13 | XMS | Clinical Summary ---
Demographics + + + | Address | [address] | | | [place] [address] | + + + | Home Phone [...] Team Providers + +------+ + | Care Purchasing Specialist Name | Role | Phone | + +------+ + | No Pcp Per Patient | PCP | Unavailable | + +------+ + Source Comments SELENA is fully live on both [facility] InPatient.[facility] Allergies No Known Allergies Medications + + [...] | / | | MD Magdiel at [facility] | | | | | | [...] | | | | | | | [id number]: Qty: 11 | | | | | | | | on 11/05/2017 by Dayami, | | | | | | | | MD Magdiel at [facility] | | | | | [...] | | | | | | | [id number]: Qty: | | | | | | | | 1Explanted: Qty: 1 on | | | | | | | | 11/05/2017 at [facility] | | | | | [...] | | | + +--------+ +--------+-------+---------+--------+ | [employer] MEDICAID | KNUCKLER | xxxxxxxx | 08/28/19 | | | [...] Person | Self | [birth year] | | [address] | | | al/Fam | | 1950 | [phone] | [place] [address] | | | taras | | | 6 (Home) | | + +--------+ +--------+ + + | [place] | Third | Self | [birth year] | | [address] | | | Democrat | | 1950 | [phone] | [place] [address] | | | Liabil | | | [...]
== END 2019-11-14 05:02 | disposition home or self-care (01) ==
LOC: ED 22:55
DX: F10.129 Alcohol abuse with intoxication, unspecified (principal); G40.909 Epilepsy, unspecified, not intractable, without status epilepticus; Z79.899 Other long term (current) drug therapy; Y90.8 Blood alcohol level of 240 mg/100 ml or more
CPT/HCPCS: 80053; 85025; 99284; G0480

== ENCOUNTER 2019-11-16 20:01 | Emergency (ER) | payer OTHER ==
[~2019-11-16] VITALS: Ht 165.1 cm; Wt 68.0 kg
--- OUTSIDE RECORDS SUMMARY | ~2019-11-16 | XMS | Encounter Summary ---
Demographics + + + | Address | [address] | | | [place] [address] | + + + | Home Phone | | + + + | Preferred Language | Unknown | + + + | Marital Status | Single | + + + | Jew Affiliation | PEN | + + + | Race | or | + + + | Ethnic Group | Not or | + + + Author + + + | Author | [facility] [employer] [facility] | + + + | Organization | [facility] [employer] [facility] | + + + | Address | Unknown | + + + | Phone | Unavailable | + + + Support + + +---------+ + | Name | Relationship | Address | Phone | + + +---------+ + | Kaylie Baig | ECON | Unknown | | + + +---------+ + Care Team Providers + +------+ + | Care Security Public Safety Officer Name | Role | Phone | + [...] | | | | | Procedures | [place], [place] | [place] | | | | | REQUEST TO | [address] | [address] | | | | | SURGERY | Phone: | Phone: | | | | | COOK SHORT ORDER | [phone] | [phone] | | | | | MA REPLACE | Fax: | Fax: | | | | | SKULL | [phone] | [phone] | | | | | PLATE/FLAP | | | | | | | MA REPAIR | | | | | | | SKULL | | | | | | | DEFECT,UP TO | | | | | | | 5CM MA | | | | | | | REPAIR SKULL | | | | | | | DEFECT,>5CM | | | | | | | MA | | | | | | | [...] + + + + | 10/31/ | [facility] | Magdiel Stock MD | Skull defect | | 2018 | | [facility] [address] | [address] | (Primary Dx) | | | | [facility] [facility] | [place], | | | | | [facility], | [place] [address] | | | | | [place] [address] | [phone] | | | | | [place], [place] | | | | | | [address] | | | | | | [phone] | | | +--------+ + + + [...]
--- OUTSIDE RECORDS SUMMARY | ~2019-11-16 | XMS | Encounter Summary ---
Demographics + + + | Address | [address] | | | [place] [address] | + + + | Home Phone [...] + + | Author | [facility] | + + + | Organization | [facility] [employer] [facility] | + + + | Address | Unknown | + + + | Phone | Unavailable | + + + Support + + +---------+ + | Name | Relationship | Address | Phone | + + +---------+ + | Kaylie Baig | ECON | Unknown | | + + +---------+ + Care Team Providers + +------+ + | Care Electrogalvanizing Machine Operator Name | Role | Phone [...] | | | | [facility] | [address] | | | | | Hospital Admitting | [place], [place] | | | | | Desk Located on the | [address] | | | | | 9th floor | [phone] | | | | | [place], [place] | | | | | | [address] | Jennifer Henderson CRNA | | | | | | [address] | | | | | | [place] [facility] | | | | | | [place] [address] | | | | | | [phone] | | | | | | | [...] centrally accessed); | | | | | [id number]; 10/22/17; 1542; | | | | | [...] 1733 by | | g Tube | ([facility] low profile g-tube 18 fr | [...] by | 10/12/171731 by | | | (essex 19fr channel drain); | Valeria Seth RN [...]
--- OUTSIDE RECORDS SUMMARY | ~2019-11-16 | XMS | Encounter Summary ---
Demographics + + + | Address | [address] | | | [place] [address] | + + + | Home Phone | | + + + | Preferred Language | Unknown | + + + | Marital Status | Single | + + + | Advent Affiliation | PEN | + + + | Race | or | + + + | Ethnic Group | Not or | + + + Author + + + | Author | [facility] [employer] [facility] | + + + | Organization | [facility] [employer] [facility] | + + + | Address | Unknown | + + + | Phone | Unavailable | + + + Support + + +---------+ + | Name | Relationship | Address | Phone | + + +---------+ + | Kaylie Baig | ECON | Unknown | | + + +---------+ + Care Team Providers + +------+ + | Care Referral Nurse Name | Role | Phone | + [...] | | | | | | Rd [facility] | | | | | | Hospital Admitting | | | | | | Desk Located on the | | | | | | 9th floor | | | | | | [place], [place] | | | | | | [address] | | | +--------+ + + + [...]
--- OUTSIDE RECORDS SUMMARY | ~2019-11-16 | XMS | Encounter Summary ---
Demographics + + + | Address | [address] | | | [place] [address] | + + + | Home Phone [...] Author + + + | Author | [facility] | + + + | Organization | [facility] [employer] [facility] | + + + | Address | Unknown | + + + | Phone | Unavailable | + + + Support + + +---------+ + | Name | Relationship | Address | Phone | + + +---------+ + | Kaylie Baig | ECON | Unknown | | + + +---------+ + Care Team Providers + +------+ + | Care Crop Farmers Name | Role | Phone | + [...] + + + + | 10/24/ | Anesthesia | 6A Intra Op 3181 | Moncho Arthur MD | | | 2018 | Event | [address] | [address] | | | | | [facility] | [address] [place], | | | | | Hospital Admitting | [place] [address] | | | | | Desk Located on the | [phone] | | | | | 9th floor | | | | | | [place], [place] | Patti Forte MD | | | | | [address] | [address] | | | | | | [place] [facility] | | | | | | [place] [address] | | | | | | [phone] | | | | | | | | +--------+ + + + + Anesthesia Record + + + + + | Procedure Name | Responsible | Anesthesia Start | Anesthesia Stop Time | | | Anesthesiologist | Time | | + + + + + | UPPER ENDOSCOPY, | Moncho Arthur MD | 10/24/17 1104 | 10/24/17 1222 | | (N/A Mouth) | | | | + + + + + +----+---+ + + | Da | T | Event | Comment | | te | i | | | | | m | | | | | e | | | +----+---+ + + | 06 | 1 | Eq Check | Anesthesia machine checked Equipment verified | | /2 | 1 | | | | 8/ | 0 | | | | 20 | 4 | | | | 18 | | | | +----+---+ + + | | 1 | Pt. Check | Prior to anesthesia start, pt. Identified, examined, chart | | | 1 | | reviewed, PARQ held, anesthetic plan made or approved by | | | 0 | | attending anesthesiologist. NPO status confirmed as appropriate | | | 4 | | for procedure Preoperative evaluation: unchanged | +----+---+ + + | | 1 | An Start | | | | 1 | | | | | 0 | | | | | 4 | | | +----+---+ + + | | 1 | Eq Check | Anesthesia machine checked Equipment verified | | | 1 | | | | | 0 | | | | | 9 | | | +----+---+ + + | | 1 | An Start | | | | 1 | Data | | | | 1 | | | | | 2 | | | +----+---+ + + | | 1 | Vitals | Monitors applied Vital signs checked Patient ready for anesthesia | | | 1 | Checked | | | | 1 | | | | | 8 | | | +----+---+ + + | | 1 | ETT | | | | 1 | | | | | 2 | | | | | 6 | | | +----+---+ + + | | 1 | Ready | | | | 1 | | | | | 2 | | | | | 8 | | | +----+---+ + + | | 1 | Abx held | Contraindicated, or not indicated for this procedure, or already | | | 1 | Medical or | receiving antibiotics | | | 3 | Surgical | | | | 0 | Reason | | +----+---+ + + | | 1 | Timeout | | | | 1 | | | | | 3 | | | | | 3 | | | +----+---+ + + | | 1 | Quick Note | Start EGD | | | 1 | | | | | 3 | | | | | 5 | | | +----+---+ + + | | 1 | Quick Note | Plan to proceed with PEG. | | | 1 | | | | | 4 | [...] Pharynx suctioned. Patient obeys | | | 2 | | commands. Adequate pulmonary mechanics. | | | 0 | | | | | 9 | | | +----+---+ + + | | 1 | an stop | | | | 2 | data | | | | 1 | | | | | 4 | | | +----+---+ + + | | 1 | Note | Kelly with John Mesa | | | 2 | | | | | 1 | | | | | 9 | | | +----+---+ + + | | 1 | Anesthesia | | | | 2 | End | | | | 2 | | | | | 2 | | | +----+---+ + + +------+ | Meds | +------+ + +--------+ | Name | Total | + +--------+ | fentaNYL | 50 mcg | + +--------+ | lidocaine 2% | 60 mg | + +--------+ | propofol | 140 mg | + +--------+ | rocuronium | 40 mg | + +--------+ | ePHEDrine | 5 mg | + +--------+ | ondansetron | 4 mg | + +--------+ | sugammadex (BRIDION) IV | 306 mg | + +--------+ | LR | 300 mL | + +--------+ + + | Name | + + [...] Right; Posterior; | 09/23/17 0015 by | 11/05/171701 by | | on | head- temporal; 11/05/17; 1701 | Cristina Becker RN | Debby Lewis, | | | | | RN | +--------+ + + + | Incisi | 10/10/17; 835; Nay Hernandez MD; | 10/10/17835 by | 11/05/171701 by | | on | Right; head- [...] | | +--------+ + + + | Wound | 10/19/17; No; Left; Midline; | 10/19/17 0000 by | 11/17/17 0200 by | | | abdomen; 11/17/17; 0200 | Shante Justin | Brissa Yost RN | +--------+ + + + | Feedin | 10/22/17; 1441; Dr. Goodwin; | 10/22/17 1441 by | 10/24/17 1151 by | | g Tube | G-tube; Abdomen UL; 24; tolerated | Amelia Hart, RT | Beatris Razo RN | | | well; 10/24/17; 1151 | | | +--------+ + + + | Periph | 10/23/17; 2158; VAT; Left; | 10/23/172158 by | 10/25/17 1600 by | | eral | Forearm; 22 g; None; No; | Lita Hess RN | Carol Shields RN | | IV | Positive; 10/25/17; 1600; Per | | | | | protocol, Per order | | | +--------+ + [...] + | ANE ETT | Routin | 10/24/2017 | | Results for this | | | e | 11:43 AM | | procedure are in the | | | | PDT | | results section. | + +--------+ + + + documented in this encounter Results ANE ETT (10/24/2017 11:43 AM PDT) + + + | Narrative | Performed At | + + + | Loi Henderson MD 10/24/2017 11:59 AM Procedure Reason for | | | Intubation: For surgical procedure, Location Performed: [place] , | | | Patient was preoxygenated Mask Ventilation Grade 1 - Ventilated by | | | mask Intubation Atraumatic laryngoscopy: Atraumatic Laryngoscopy, | | | Intubation adjuncts: N/A , Laryngoscopic view: N/A, Fiberoptics | | | used: Glidescope , Number of Attempts: 1, Positive for EtCO2: Yes, | | | Breath sounds: Bilateral and equal ETT Ett Adult: | | | Single-lumen cuffed ETT Size: 7.5 ETT secured with: adhesive tape | | | Depth at Lip: 23 Cm Airway leak: No Narrative Attending | | | physically present Performed by Resident Pt's helmet kept in | | | place, and front of c-collar removed with in-line stabilization held | | | by circulating RN throughout airway management. G1M, Easy view | | | obtained with glidescope without any neck extension, and with | | | minimal jaw excursion, and 7.5 ETT passed easily through open cords, | | | Atraumatic Front of C-collar replaced immediately after intubation | | | | | + + + documented in this encounter Visit Diagnoses Not on filedocumented in this encounter Administered Medications + +--------+ +------+------+------+ | Medication Order | MAR | Action | Dose | Rate | Site | | | Action | Date | | | | + +--------+ +------+------+------+ | ePHEDrine injection | Given | 10/25/19 | 5 mg | | | | intravenous, INTRAPROCEDURE PRN, | | 18 11:31 | | | | | Starting Soh 10/24/17 at 1131, | | AM PDT | | | | | Until Sho 10/24/17 at 1214 | | | | | | + +--------+ +------+------+------+ +---+---+ | | | +---+---+ + +-------+ +--------+---+---+ | fentaNYL citrate (PF) | Given | 10/25/19 | 50 mcg | | | | (SUBLIMAZE) injection | | 18 11:21 | | | | | intravenous, INTRAPROCEDURE PRN, | | AM PDT | | | | | Starting Sho 10/24/17 at 1121, | | | | | | | Until Sho 10/24/17 at 1214 | | | | | | + +-------+ +--------+---+---+ +---+---+ | | | +---+---+ + + + +---+---+---+ | lactated Ringers IV | given by | 10/25/19 | | | | | intravenous, INTRAPROCEDURE | | 18 11:50 | | | | | CONTINUOUS PRN, Starting Sho | anesthes | AM PDT | | | | | 10/24/17 at 1104, Until Sho | iology | | | | | | 10/24/17 at 1214 | | | | | | + + + +---+---+---+ +---------+ +---+---+---+ | New Bag | 10/25/19 | | | | | | 18 11:04 | | | | | | AM PDT | | | | +---------+ +---+---+---+ +---+---+ | | | +---+---+ + +-------+ +-------+---+---+ | lidocaine PF (XYLOCAINE MPF) 20 | Given | 10/25/19 | 60 mg | | | | mg/mL (2 %) injection | | 18 11:24 | | | | | INTRAPROCEDURE PRN, Starting Sho | | AM PDT | | | | | 10/24/17 at 1124, Until Sho | | | | | | | 10/24/17 at 1214 | | | | | | + +-------+ +-------+---+---+ +---+---+ | | | +---+---+ + +-------+ +------+---+---+ | ondansetron (ZOFRAN) injection | Given | 10/25/19 | 4 mg | | | | intravenous, INTRAPROCEDURE PRN, | | 18 12:03 | | | | | Starting Sho 10/24/17 at 1203, | | PM PDT | | | | | Until Sho 10/24/17 at 1214 | | | | | | + +-------+ +------+---+---+ +---+---+ | | | +---+---+ + +-------+ +--------+---+---+ | propofol intravenous, | Given | 10/25/19 | 140 mg | | | | INTRAPROCEDURE PRN, Starting Sho | | 18 11:25 | | | | | 10/24/17 at 1125, Until Sho | | AM PDT | | | | | 10/24/17 at 1214 | | | | | | + +-------+ +--------+---+---+ +---+---+ | | | +---+---+ + +-------+ +-------+---+---+ | rocuronium (ZEMURON) injection | Given | 10/25/19 | 40 mg | | | | intravenous, INTRAPROCEDURE PRN, | | 18 11:25 | | | | | Starting Sho 10/24/17 at 1125, | | AM PDT | | | | | Until Sho 10/24/17 at 1214 | | | | | | + +-------+ +-------+---+---+ +---+---+ | | | +---+---+ + +-------+ +--------+---+---+ | sugammadex (BRIDION) IV | Given | 10/25/19 | 306 mg | | | | INTRAPROCEDURE PRN, Starting Sho | | 18 12:04 | | | | | 10/24/17 at 1204, Until Sho | | PM PDT | | | | | 10/24/17 at 1214 | | | | | | + +-------+ +--------+---+---+ +---+---+ | | | +---+---+ documented in this encounter"
--- OUTSIDE RECORDS SUMMARY | ~2019-11-16 | XMS | Encounter Summary ---
Demographics + + + | Address | [address] | | | [place] [address] | + + + | Home Phone [...] [facility] [employer] [facility] | + + + | Organization | Counts Include [facility] [employer] [facility] | + + + | Address | Unknown | + + + | Phone | Unavailable | + + + Support + + +---------+ + | Name | Relationship | Address | Phone | + + +---------+ + | Kaylie Baig | ECON | Unknown | | + + +---------+ + Care Team Providers + +------+ + | Care Chief Accountant Name | Role | Phone | + [...] | | | | | Rd [facility] | | | | | | Hospital Admitting | | | | | | Desk Located on the | | | | | | 9th floor | | | | | | [place], [place] | | | | | | [address] | | | +--------+ + + + [...]
--- OUTSIDE RECORDS SUMMARY | ~2019-11-16 | XMS | Encounter Summary ---
Demographics + + + | Address | [address] | | | [place] [address] | + + + | Home Phone | | + + + | Preferred Language | Unknown | + + + | Marital Status | Single | + + + | Gnosticist Affiliation | PEN | + + + | Race | or | + + + | Ethnic Group | Not or | + + + Author + + + | Author | [facility] [facility] | + + + | Organization | [facility] [facility] | + + + | Address | Unknown | + + + | Phone | Unavailable | + + + Support + + +---------+ + | Name | Relationship | Address | Phone | + + +---------+ + | Kaylie Baig | ECON | Unknown | | + + +---------+ + Care Team Providers + +------+ + | Care Demolition Expert Name | Role | Phone | + [...] | | | | Hospital Admitting | [place], [place] | | | | | Desk Located on the | [address] | | | | | 9th floor | [phone] | | | | | [place], [place] | | | | | | [address] | [address], | | | | | | [facility] [address] | | | | | | [address] | | | | | | [place], [place] | | | | | | [address] | | | | | | [phone] | | | | | | | [...] centrally accessed); | | | | | [id number]; 10/22/17; 1542; | | | | | [...] 11:15 | | | | | Starting Soh 10/10/17 at 0745, | | AM PDT [...]
--- OUTSIDE RECORDS SUMMARY | ~2019-11-16 | XMS | Encounter Summary ---
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 Trauma, Critical Care and Acute Care Surgery [...] DEPT OF | [address] | [place], [place] | | | CARDIOLOGY | [address] | [address] | | + + + + + [...] | | | LABORATORY | | | [facility] | | | SERVICES, | | | [...] | + + + + + | [facility] | [address] | [place] [address] | | | SERVICES, CORE | PARK [...] [facility] | [address] | [place] [address] | | | SERVICES, NATALEE | VILMA [...] + + + + | QTC-HALIMA | 472 | ms | [facility] DEPT [...] DEPT OF | [address] | [place], [place] | | | CARDIOLOGY | [address] | [address] | | + + + + + [...] | + + + + + | [facility] | [address] | [place] [address] | | | SERVICES, NATALEE | VILMA [...] [facility] DEPT OF | [address] [facility] | [place], [place] | | | CARDIOLOGY | [address] | [address] | | + + + + + [...] Note | + + | Service Account, Tamecco In Interface - 12/03/2017 4:56 PM PDT [...] | + + + + + | [facility] | [address] | [place] [address] | | | SERVICES, CORE | VILMA [...] Note | + + | Service Account, Minglebox Res In Interface - 12/03/2017 10:30 AM [...] + + + + | QTC-HALIMA | 491 | ms | [facility] DEPT [...] DEPT OF | [address] | [place], [place] | | | CARDIOLOGY | [address] | [address] | | + + + + + [...] | + + + + + | [facility] | [address] | [place] [address] | | | SERVICES, CORE | VILMA [...] + | [facility] | [address] | [place] [address] | | | [place] | | | [...] | + + + + + | [facility] | [address] | [place] [address] | | | SERVICES, CORE | VILMA [...] [facility] | [address] | [place] [address] | | | SERVICES, CORE | PARK [...] | + + + + + | [facility] | [address] [facility] | [place] [address] | | | SERVICES, CORE | VILMA [...] | | | LABORATORY | | | [facility] | | | SERVICES, | | | [...] | + + + + + | [employer] [facility] | [address] [facility] | [place] [address] | | | SERVICES, CORE | VILMA [...] | + + + + + | [facility] | [address] | [place] [address] | | | SERVICES, CORE | [address] | | | + + + + + 12 LEAD ECG (11/30/2017 4:03 PM PDT) + + + + + + | Component | Value | Ref Range | Performed | Pathologist | | | | | At | Signature | + + + + + + | VENTRICULAR | 60 | bpm | [facility] DEPT | | | RATE | [...] DEPT OF | [address] | [place], [place] | | | CARDIOLOGY | [address] | [address] | | + + + + + [...] [facility] DEPT OF | [address] [facility] | [place], [place] | | | CARDIOLOGY | [address] | [address] | | + + + + + [...] | | | LABORATORY | | | [facility] | | | SERVICES, | | | [...] | + + + + + | [facility] | [address] | [place] [address] | | | SERVICES, CORE | VILMA [...] | + + + + + | [facility] | [address] | [place] [address] | | | SERVICES, CORE | [address] | | | + + + + + 12 LEAD ECG (11/27/2017 11:03 AM PDT) + + + + + + | Component | Value | Ref Range | Performed | Pathologist | | | | | At | Signature | + + + + + + | VENTRICULAR | 56 | bpm | [facility] DEPT | | | RATE | | [...] + + + + | QTC-BAZETT | 432 | ms | [facility] DEPT [...] + + + + + | [facility] OF | [address] | [place], [place] | | | CARDIOLOGY | [address] | [address] | | + + + + + [...] Note | + + | Service Account, Minglebox Res In Interface - 11/26/2017 12:36 PM [...] | + + + + + | [employer] [facility] - | [address] | [place] [address] | | | [place] | | | [...] [facility] | [address] | [place] [address] | | | SERVICES, CORE [...] [facility] | [address] | [place] [address] | | | SERVICES, CORE | PARK [...] LABORATORY | [address] | [place] [address] | | | SERVICES, CORE | PARK [...] | + + + + + | [facility] | [address] | [place] [address] | | | SERVICES, CORE | VILMA [...] | | | LABORATORY | | | [facility] | | | SERVICES, | | | [...] | + + + + + | [facility] | [address] | [place] [address] | | | SERVICES, CORE | PARK [...] | + + + + + | [facility] | [address] | [place] [address] | | | NATALEE WORTHINGTON | VILMA [...] + + + + | LAUREN | 423 | ms | [facility] DEPT [...] DEPT OF | [address] | [place], [place] | | | CARDIOLOGY | [address] | [address] | | + + + + + [...] GEET OF | [address] | [place], [place] | | | CARDIOLOGY | [address] | [address] | | + + + + + [...] + + + | ANA LILIA-HALIMA | 430 | ms | [facility] DEPT [...] DEPT OF | [address] | [place], [place] | | | CARDIOLOGY | [address] | [address] | | + + + + + [...] + + | QTC-BAMARIA DEL CARMEN | 446 | ms | [facility] DEPT [...] | + + + + + | [facility] OF | [address] [facility] | [place], [place] | | | CARDIOLOGY | [address] | [address] | | + + + + + X-RAY SPINE CERVICAL 3 VIEWS (11/21/2017 2:23 PM PDT) + + | Specimen | + + | | + + + + + | Narrative | Performed At | + + + | EXAM: SPINE CERVICAL 3 VIEWS HISTORY: follow up imaging Cervical | [facility] | | Spine fractures C 6, C [...] | | | LABORATORY | | | [facility] | | | SERVICES, | | | [...] the MDRD equation recommended by the | [facility] | | National Kidney Disease Education [...] | + + + + + | [facility] | [address] | [place] [address] | | | SERVICES, CORE | PARK [...] [facility] | [address] | [place] [address] | | | SERVICES, NATALEE | VILMA [...] Note | + + | Service Account, Tamecco In Interface - 11/19/2017 11:26 AM PDT [...] DEPT | | | IMPRESSION | by: JAAY DE LOS SANTOS | | OF | [...] + + | [facility] OF | [address] | [place], [place] | | | CARDIOLOGY | [address] | [address] | | + + + + + [...] DEPT OF | [address] | [place], [place] | | | CARDIOLOGY | [address] | [address] | | + + + + + [...] [facility] | [address] | [place] [address] | | | SERVICES, CORE | PARK [...] | + + + + + | [facility] | [address] | [place] [address] | | | SERVICES, CORE | [address] [...] - | | | | | | [place] | | + +-------+ + + + + + | Specimen | + + | Blood - Blood | | (substance) | + + + + + + + | Performing | Address | City/State/Zipcode | Phone Number | | Organization | | | | + + + + + | [facility] | [address] | [place] [address] | | | [facility] | | | | + [...] + + | [facility] | [address] [facility] | [place] [address] | | | SERVICES, CORE | PARK [...] | + + + + + | [facility] | [address] | [place] [address] | | | SERVICES, CORE | PARK [...] | | | LABORATORY | | | [facility] | | | SERVICES, | | | [...] | + + + + + | [facility] | [address] | [place] [address] | | | SERVICES, CORE | [...] | + + + + + | [facility] | [address] | [place] [address] | | | SERVICES, NATALEE | VILMA [...] DEPT OF | [address] | [place], [place] | | | CARDIOLOGY | [address] | [address] | | + + + + + [...] DEPT OF | [address] | [place], [place] | | | CARDIOLOGY | [address] | [address] | | + + + + + [...] [facility] | [address] | [place] [address] | | | NATALEE WORTHINGTON | VILMA [...] [facility] | [address] [facility] | [place], [place] | | | CARDIOLOGY | [address] | [address] | | + + + + + [...] | | | LABORATORY | | | [facility] | | | SERVICES, | | | [...] | + + + + + | [facility] | [address] | [place] [address] | | | SERVICES, CORE | [address] | | | + + + + + MAGNESIUM, PLASMA (11/14/2017 4:05 AM PDT) + +-------+ + + + | Component | Value | Ref Range | Performed | Pathologist | | | | | At | Signature | + +-------+ + + + | MAGNESIUM,P | 2.0 | 1.6 - 2.6 mg/dL | [facility] [...] [facility] | [address] | [place] [address] | | | ELIN, NATALEE | VILMA [...] DEPT OF | [address] | [place], [place] | | | CARDIOLOGY | [address] | [address] | | + + + + + [...] [facility] | [address] | [place] [address] | | | SERVICES, NATALEE | [address] | | | + [...] | | | LABORATORY | | | [facility] | | | SERVICES, | | | [...] 9 | 4 - 11 mmol/L | [facility] | | | GAP(ALB | | | [...] | + + + + + | [facility] | [address] [facility] | [place] [address] | | | SERVICES, CORE | VILMA [...] Isabella | | | | | | Cerda [place]- [place], Med Lorraine | | | [...] | + + + + + | [facility] - | [address] | [place] [address] | | | [place] | | | | + + + [...] | + + + + + | [facility] OF | [address] | [place], [place] | | | CARDIOLOGY | [address] | [address] | | + + + + + [...] | + + + + + | [employer] [facility] | [address] | [place] [address] | | | SERVICES, CORE | VILMA [...] + | [facility] - | [address] | [place] [address] | | | [place] | | | | + + + [...] DEPT OF | [address] | [place], [place] | | | CARDIOLOGY | [address] | [address] | | + + + + + [...] | + + + + + | [facility] | [address] | [place] [address] | | | ELIN, NATALEE | VILMA [...] + | [facility] | [address] | [place] [address] | | | [facility] | | | | + [...] [facility] | [address] | [place] [address] | | | SERVICES, CORE | PARK [...] [facility] | [address] | [place] [address] | | | SERVICES, CORE | PARK [...] | + + + + + | [facility] | [address] | [place] [address] | | | SERVICES, CORE | VILMA [...] | | | LABORATORY | | | [facility] | | | SERVICES, | | | [...] [facility] | [address] | [place] [address] | | | SERVICES, NATALEE | PARK [...] | + + + + + | [facility] | [address] | [place] [address] | | | SERVICES, CORE | P[address] [...] [facility] | [address] | [place] [address] | | | SERVICES, NATALEE | VILMA [...] | | | LABORATORY | | | [facility] | | | SERVICES, | | | [...] | + + + + + | [facility] | [address] | [place] [address] | | | SERVICES, NATALEE | VILMA [...] DEPT OF | [address] | [place], [place] | | | CARDIOLOGY | [facility] | [address] | | + + + + + [...] [facility] | [address] | [place] [address] | | | SERVICES, CORE | VILMA [...] | | | LABORATORY | | | [facility] | | | SERVICES, | | | [...] | + + + + + | [facility] | [address] | [place] [address] | | | SERVICES, NATALEE | VILMA [...] | + + + + + | [facility] | [address] | [place] [address] | | | NATALEE [place] | PARK [...] | | | LABORATORY | | | [facility] | | | SERVICES, | | | [...] | + + + + + | [facility] | [address] [facility] | [place] [address] | | | SERVICES, CORE | [address] [...] in the calvarium which appear similar to [facility] 2016 CT. These are indeterminant. Metastatic disease [...] | + + + + + | [facility] | [address] [facility] | [place] [address] | | | SERVICES, CORE | [address] [...] | | | LABORATORY | | | [facility] | | | SERVICES, | | | [...] [facility] | [address] | [place] [address] | | | SERVICES, CORE | P[address] [...] [facility] | [address] [facility] | [place], [place] | | | CARDIOLOGY | [address] | [address] | | + + + + + [...] + + + + | QTC-SAURABHTT | 495 | ms | [facility] DE[facility] [...] DEPT OF | [address] | [place], [place] | | | CARDIOLOGY | [address] | [address] | | + + + + + [...] | | | LABORATORY | | | [facility] | | | SERVICES, | | | [...] the MDRD equation recommended by the | [facility] | | National Kidney Disease Education [...] | + + + + + | [facility] | [address] | [place] [address] | | | SERVICES, CORE | [address] | | | + + + + + MAGNESIUM, PLASMA (11/07/2017 7:22 AM PDT) + +-------+ + + + | Component | Value | Ref Range | Performed | Pathologist | | | | | At | Signature | + +-------+ + + + | MAGNESIUM,P | 1.8 | 1.6 - 2.6 mg/dL | [facility] [...] [facility] | [address] | [place] [address] | | | SERVICES, NATALEE | [address] [...] + + + + | PRODUCT | [id number] | | [facility] | | | UNIT [...] + + + + | EXPIRATION | [id number] | | [facility] | | | DATE [...] + + + + | BLOOD | [id number] | | [facility] | | | PRODUCT [...] [facility] | [address] | [place] [address] | | | SERVICES, | [address] [...] + + + + | PRODUCT | [id number] | | [facility] | | | UNIT [...] + + + + | EXPIRATION | [id number] | | [facility] | | | DATE [...] + + + + | BLOOD | [id number] | | [facility] | | | PRODUCT [...] [facility] | [address] | [place] [address] | | | SERVICES, | [address] [...] | + + + + + | [facility] | [address] | [place] [address] | | | SERVICES, CORE | VILMA [...] [facility] | [address] | [place] [address] | | | SERVICES, CORE | [address] [...] | | | LABORATORY | | | [facility] | | | SERVICES, | | | [...] the MDRD equation recommended by the | [facility] | | National Kidney Disease Education [...] | + + + + + | [facility] | [address] [facility] | [place] [address] | | | SERVICES, CORE | [address] | | | + + + + + OPERATION RECORD (11/06/2017 12:27 AM PDT) + + | Procedure Note | + + | Magdiel Stock MD - 11/06/2017 12:27 AM PDT Date of Service: 11/05/2017 Attending | | Surgeon: Magdiel Stock MD Naphthalene Still Operator(s): Rg Aiken MD | | Preoperative Diagnoses: [...] was placed in a horseshoe head of music with his C-collar still | | attached [...] the incision down to the cranium. Once [place] | | skull was reached circumferentially around the prior incision, a #1 Hemet was used | | to subperiosteally dissect [...] note for this encounter.Sonal Nunez, | | [facility] [id number] [place], [place] | | [phone] Orina, MDJB/TAHIRLDD: 11/05/2017 20:38:01DT: 11/06/2017 | | 00:27:33Job #: [id number] | |HATTIE/DUC | | | | | | /[id number] | + + CT HEAD WO CONTRAST [...] Nette Galeas, Radiant Res In Interface - 11/05/2017 8:20 [...] | | + +---------+ + + PROCEDURE DESTINY (11/05/2017 7:30 PM PDT) + + + [...] Surgeon: Magdiel | | | MD Dayami Naphthalene Still Operator: Rg Aiken MD Pre-op Diagnosis: | | [...] PGY-4 Neurological Surgery Pager | | | [phone] | | + + + CAPILLARY BLOOD [...] [facility] | [address] | [place], [place] | | | [facility] | [address] | [address] | | | TESTS | | | [...] + | [facility] | [address] | [place], [place] | | | [facility]O [facility] | [address] | [address] | | | TESTS | | | [...] Note | + + | Service Account, Minglebox Res In Interface - 11/05/2017 11:31 AM [...] | + + + + + | [facility] | [address] | [place] [address] | | | SERVICES, CORE | PARK [...] [facility] | [address] | [place] [address] | | | SERVICES, NATALEE | [address] [...] | | | LABORATORY | | | [facility] | | | SERVICES, | | | [...] | + + + + + | [facility] | [address] | [place] [address] | | | SERVICES, NATALEE | VILMA [...] | + + + + + | [facility] | [address] | [place] [address] | | | SERVICES, CORE | [address] [...] + + + + | PRODUCT | [id number] | | [facility] | | | UNIT [...] + + + + | EXPIRATION | [id number] | | [facility] | | | DATE [...] + + + + | BLOOD | [id number] | | [facility] | | | PRODUCT [...] [facility] | [address] | [place] [address] | | | SERVICES, | [address] [...] + + + + | PRODUCT | [id number] | | [facility] | | | UNIT [...] + + + + | EXPIRATION | [id number] | | [facility] | | | DATE [...] + + + + | BLOOD | [id number] | | [facility] | | | PRODUCT [...] [facility] | [address] | [place] [address] | | | SERVICES, | [address] [...] | + + + + + | [facility] | [address] | [place] [address] | | | SERVICES, CORE | [address] [...] [facility] | [address] | [place] [address] | | | SERVICES, | [address] [...] | + + + + + | [facility] | [address] | [place] [address] | | | SERVICES, | [address] [...] | + + + + + | [facility] | [address] | [place] [address] | | | NATALEE WORTHINGTON | [address] | | | + + + [...] DEPT OF | [address] | [place], [place] | | | CARDIOLOGY | [address] | [id number] | | + + + + + CALCIUM, IONIZED, WHOLE BLOOD (11/04/2017 6:45 AM PDT) + +-------+ + + + | Component | Value | Ref Range | Performed | Pathologist | | | | | At | Signature | + +-------+ + + + | [facility], | 1.22 | 1.14 - 1.32 [...] [facility] | [address] | [place] [address] | | | SERVICES, CORE | [address] [...] | + + + + + | [facility] | [address] | [place] [address] | | | SERVICES, CORE | [address] [...] + | [facility] | [address] | [place] [address] | | | [place] | | | [...] | + + + + + | [facility] | [address] | [place] [address] | | | SERVICES, CORE | PARK [...] [facility] | [address] | [place] [address] | | | SERVICES, CORE | PARK [...] | | | LABORATORY | | | [facility] | | | SERVICES, | | | [...] | + + + + + | [facility] | [address] | [place] [address] | | | SERVICES, NATALEE | VILMA [...] | + + + + + | [facility] | [address] | [place] [address] | | | SERVICES, CORE | VILMA [...] [facility] | [address] | [place] [address] | | | SERVICES, CORE | PARK [...] | | | LABORATORY | | | [facility] | | | SERVICES, | | | [...] the MDRD equation recommended by the | [facility] | | National Kidney Disease Education [...] | + + + + + | [facility] | [address] | [place] [address] | | | SERVICES, CORE | PARK [...] 2.6 mg/dL | [facility] | | | SAMSONMA | | | [...] | + + + + + | [facility] | [address] | [place] [address] | | | SERVICES, NATALEE | VILMA [...] | | | LABORATORY | | | [facility] | | | SERVICES, | | | [...] the MDRD equation recommended by the | [place] | | National Kidney Disease Education Program. [...] | + + + + + | [facility] | [address] | [place] [address] | | | SERVICES, NATALEE | VILMA [...] + + + | ANA LILIA-HALIMA | 441 | ms | [facility] [...] [facility] | [address] [facility] | [place], [place] | | | CARDIOLOGY | [address] | [address] | | + + + + + [...] [facility] | [address] | [place] [address] | | | NATALEE WORTHINGTON | PARK [...] | | | LABORATORY | | | [facility] | | | SERVICES, | | | [...] | + + + + + | [facility] | [address] [facility] | [place] [address] | | | SERVICES, CORE | VILMA [...] + + + + | QTC-BAZETT | 443 | ms | [facility] [...] DEPT OF | [address] | [place], [place] | | | CARDIOLOGY | [address] | [address] | | + + + + + [...] | | | LABORATORY | | | [facility] | | | SERVICES, | | | [...] | + + + + + | [facility] | [address] [facility] | [place] [address] | | | SERVICES, NATALEE | VILMA [...] | + + + + + | [facility] | [address] | [place] [address] | | | SERVICES, CORE | [address] | | | + + + + + CAPILLARY BLOOD GLUCOSE (NO CHG), CITLALY (10/30/2017 5:53 AM PDT) + +---------+ + [...] [facility] | [address] | [place], [place] | | | [facility] | [address] | [address] | | | TESTS | | | [...] | + + + + + | [facility] | [address] | [place] [address] | | | SERVICES, CORE | PARK [...] | | | LABORATORY | | | [facility] | | | SERVICES, | | | [...] | + + + + + | [facility] | [address] | [place] [address] | | | SERVICES, CORE | VILMA [...] [facility] | | | | | [facility] | | | | + [...] - [facility] | [address] | [place], [place] | | | [facility] [place] | [address] | [address] | | | TESTS | | | [...] [facility] | [address] | [place] [address] | | | SERVICES, CORE | PARK [...] | | | LABORATORY | | | [facility] | | | SERVICES, | | | [...] | + + + + + | [facility] | [address] | [place] [address] | | | SERVICES, NATALEE | VILMA [...] - [facility] | [address] | [place], [place] | | | [facility] OF [facility] | [address] | [address] | | | TESTS | | | [...] [facility] OF | [address] | [place], [place] | | | CARDIOLOGY | [address] | [address] | | + + + + + [...] [facility] | [address] | [place], [place] | | | [facility] | [address] | [address] | | | TESTS | | | [...] [facility] | [address] | [place], [place] | | | [place], POINT OF CARE | [address] | [address] | | | TESTS | | | [...] | + + + + + | [facility] | [address] | [place] [address] | | | SERVICES, CORE | VILMA [...] + | [facility] - | [address] | [place] [address] | | | [place] | | | [...] | + + + + + | [facility] | [address] | [place] [address] | | | SERVICES, CORE | VILMA [...] [facility] | [address] | [place] [address] | | | SERVICES, CORE | PARK [...] (L) | 3.5 - 4.7 g/dL | [facility] | | | PLASMA | | | [...] | + + + + + | [facility] | [address] | [place] [address] | | | SERVICES, CORE | VILMA [...] | | | LABORATORY | | | [facility] | | | SERVICES, | | | [...] | + + + + + | [facility] | [address] | [place] [address] | | | SERVICES, CORE | VILMA [...] | + + + + + | [facility] | [address] | [place] [address] | | | SERVICES, CORE | VILMA [...] (H) | 70 - 99 mg/dL | [facility] - | | | GLUCOSE, | [...] [facility] | [address] | [place], [place] | | | [facility] | [address] | [address] | | | TESTS | | | [...] [facility] | [address] | [place], [place] | | | [facility] CARE | [address] | [address] | | | TESTS | | | [...] | | | + +---------+ + + CHELE LINE (10/27/2017 12:27 PM PDT) + + [...] correct | | | patient, procedure, equipment, security support analyst and site/side marked as | | | [...] vein. Catheter lot number: | | | [id number] with a length of 55 cm was [...] [facility] | [address] | [place], [place] | | | [facility] | [address] | [address] | | | TESTS | | | [...] + + + + + + | QTC-BAZEJOSE | 468 | ms | [facility] [...] DEPT OF | [address] | [place], [place] | | | CARDIOLOGY | [facility] | [address] | | + + + + + [...] [facility] | [address] | [place], [place] | | | [facility] GE[facility] OF [facility] | [address] | [address] | | | TESTS | | | [...] [facility] | [address] | [place] [address] | | | SERVICES, CORE | PARK [...] | | | LABORATORY | | | [facility] | | | SERVICES, | | | [...] | + + + + + | [facility] | [address] [facility] | [place] [address] | | | NATALEE WORTHINGTON | VILMA [...] - [facility] | [address] | [place], [place] | | | [facility]ARE | [address] | [address] | | | TESTS | | | [...] [facility] | [address] | [place], [place] | | | [facility]ARE | [address] | [address] | | | TESTS | | | [...] [facility] | [address] | [place], [place] | | | [facility] | [address] | [address] | | | TESTS | | | [...] | + + + + + | [facility] | [address] | [place] [address] | | | NATALEE WORTHINGTON | VILMA [...] | | | LABORATORY | | | [facility] | | | SERVICES, | | | [...] | + + + + + | [facility] | [address] | [place] [address] | | | SERVICES, CORE | VILMA [...] [facility] | [address] | [place], [place] | | | [facility] | [address] | [address] | | | TESTS | | | [...] | | | LABORATORY | | | [facility] | | | SERVICES, | | | [...] | + + + + + | [facility] | [address] [facility] | [place] [address] | | | SERVICES, NATALEE | VILMA [...] [facility] | [address] | [place], [place] | | | [facility] OF [facility] | [facility] | [address] | | | TESTS | | | [...] DEPT OF | [address] | [place], [place] | | | CARDIOLOGY | [address] | [address] | | + + + + + [...] [facility] | [address] | [place], [place] | | | [facility]ARE | [address] | [address] | | | TESTS | | | [...] DEPT OF | [address] | [place], [place] | | | CARDIOLOGY | [facility] | [address] | | + + + + + [...] [facility] | [address] | [place] [address] | | | NATALEE WORTHINGTON | VILMA [...] | + + + + + | [facility] - | [address] | [place] [address] | | | [place] | | | [...] [facility] | [address] | [place] [address] | | | SERVICES, CORE | PARK [...] [facility] | [address] | [place] [address] | | | SERVICES, CORE | PARK [...] + + | [facility] | [address] [facility] | [place] [address] | | | SERVICES, CORE | PARK [...] [facility] | [address] | [place] [address] | | | SERVICES, NATALEE | VILMA [...] [facility] | [address] | [place] [address] | | | SERVICES, CORE | PARK [...] | + + + + + | [facility] | [address] | [place] [address] | | | SERVICES, CORE | VILMA [...] [facility] | [address] | [place] [address] | | | SERVICES, CORE | PARK [...] | + + + + + | [facility] | [address] [facility] | [place] [address] | | | SERVICES, CORE | VILMA [...] [facility] | [address] | [place] [address] | | | SERVICES, CORE | VILMA [...] | + + + + + | [facility] | [address] | [place] [address] | | | NATALEE WORTHINGTON | VILMA [...] | | | LABORATORY | | | [facility] | | | SERVICES, | | | [...] | + + + + + | [facility] | [address] [facility] | [place] [address] | | | SERVICES, CORE | VILMA [...] | | | correct patient, procedure, 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 Catheter lot number: [id number] with a length of 55 | | [...] [facility] | [address] | [place], [place] | | | [facility] | [facility] | [address] | | | TESTS | | | [...] | | Surgical Critical Care, PGY7 Pager: [phone] | | + + + CAPILLARY BLOOD [...] - [facility] | [address] | [place], [place] | | | [facility]ARE | [address] | [address] | | | TESTS | | | | + + + + + CAPILLARY BLOOD GLUCOSE (NO CHG), POC (10/24/2017 8:50 AM PDT) + +-------+ + + + | Component | Value | Ref Range | Performed | Pathologist | | | | | At | Signature | + +-------+ + + + | BLOOD | 98 | 70 - 99 mg/dL | [facility] [...] + + + | [facility] | [address] | [place], [place] | | | [facility] | [address] | [address] | | | TESTS | | | [...] | | | LABORATORY | | | [facility] | | | SERVICES, | | | [...] LABORATORY | [address] | [place] [address] | | | SERVICES, NATALEE | PARK [...] | + + + + + | [facility] | [address] | [place] [address] | | | ELIN, NATALEE | VILMA [...] [facility] | [address] | [place], [place] | | | [facility] CARE | [address] | [address] | | | TESTS | | | [...] + + | [facility] | [address] [facility] | [place] [address] | | | SERVICES, CORE | PARK [...] | | | LABORATORY | | | [facility] | | | SERVICES, | | | [...] [facility] | [address] | [place] [address] | | | NATALEE WORTHINGTON | VILMA [...] + + + + | QTC-HALIMA | 452 | ms | [facility] [...] [facility] | [address] [facility] | [place], [place] | | | CARDIOLOGY | [address] | [address] | | + + + + + IR GASTROSTOMY TUBE EXCHANGE (10/22/2017 2:42 PM PDT) + + | Specimen | + + | | + + + + + | Narrative | Performed At | + + + | Procedure: Gastrostomy tube exchange Primary attending | [facility] | | director building: Shade Goodwin M.D. Preoperative diagnosis: | RADIOLOGY VOICE | | Malfunctioning Gastrostomy tube Postoperative diagnosis: Same | RECOGNITION | | Operations: Operation 1. Removal of existing Gastrostomy tube | | | over a guide wire Operation 2. Placement of 24 Costa Rican GABRIEL | | | gastrostomy over guide [...] a stiff glide wire the new 24 Costa Rican gastrostomy tube was | | | inserted. [...] Procedure: | | Gastrostomy tube exchangePrimary attending director building: Shade Goodwin | | BrynPreoperative diagnosis: Malfunctioning Gastrostomy tubePostoperative diagnosis: | | SameOperations:Operation 1. Removal of existing Gastrostomy tube over a guide | | wireOperation 2. Placement of 24 [place]ican GABRIEL gastrostomy over guide wireNo sedation was [...] glide wire the | | new 24 Costa Rican gastrostomy tube was inserted. The position of [...] stiff g lide wire the new 24 [place]ican | |gastrostomy tube was inserted. The position [...] Note | + + | Service Account, Tamecco In Interface - 10/22/2017 10:34 AM PDT [...] + + + + | LAUREN | 448 | ms | [facility] [...] [facility] | [address] [facility] | [place], [place] | | | CARDIOLOGY | [address] | [address] | | + + + + + [...] MD Dictation initiated: | | | Dae Izagiurre MD 10/22/2017 4:15 AM | | + + + + + | Procedure Note | + + | Service Account, [email or web address] Res In Interface - 10/22/2017 8:06 AM [...] [facility] | [address] | [place] [address] | | | SERVICES, CORE | PARK [...] | | | LABORATORY | | | [facility] | | | SERVICES, | | | [...] the MDRD equation recommended by the | [facility] | | National Kidney Disease Education [...] | + + + + + | [facility] | [address] [facility] | [place] [address] | | | NATALEE WORTHINGTON | VILMA [...] + + + + | LAUREN | 454 | ms | [facility] [...] DEPT OF | [address] | [place], [place] | | | CARDIOLOGY | [address] | [address] | | + + + + + [...] | | | LABORATORY | | | [facility] | | | SERVICES, | | | [...] the MDRD equation recommended by the | [facility] | | National Kidney Disease Education [...] | + + + + + | [facility] | [address] | [place] [address] | | | NATALEE WORTHINGTON | VILMA [...] [facility] | [address] | [place] [address] | | | NATALEE WORTHINGTON | VILMA [...] + + + + | QTC-HALIMA | 438 | ms | [facility] [...] DEPT OF | [address] | [place], [place] | | | CARDIOLOGY | [address] | [address] | | + + + + + [...] [facility] | [address] | [place] [address] | | | SERVICES, CORE | PARK [...] | | | LABORATORY | | | [facility] | | | SERVICES, | | | [...] | + + + + + | [facility] | [address] | [place] [address] | | | NATALEE WORTHINGTON | VILMA [...] + + + + | QTC-HALIMA | 459 | ms | [facility] [...] [facility] | [address] [facility] | [place], [place] | | | CARDIOLOGY | [address] | [address] | | + + + + + [...] | | | LABORATORY | | | [facility] | | | SERVICES, | | | [...] the MDRD equation recommended by the | [facility] | | National Kidney Disease Education [...] | + + + + + | [facility] | [address] | [place] [address] | | | NATALEE WORTHINGTON | VILMA [...] [facility] | [address] | [place] [address] | | | NATALEE WORTHINGTON | VILMA [...] + + | [facility] | [address] | [place], [place] | | | CARDIOLOGY | [address] | [address] | | + + + + + [...] | | | LABORATORY | | | [facility] | | | SERVICES, | | | [...] | + + + + + | [facility] | [address] | [place] [address] | | | SERVICES, NATALEE | VILMA [...] [facility] | [address] | [place] [address] | | | SERVICES, [facility] | [address] | | | + [...] Note | + + | Service Account, Minglebox Res In Interface - 10/15/2017 3:58 PM [...] DEPT OF | [address] | [place], [place] | | | CARDIOLOGY | [address] | [address] | | + + + + + [...] [facility] | [address] | [place] | | | [facility] | [address] | [address] | | | TESTS | | | [...] | + + + + + | [facility] | [address] | [place] [address] | | | SERVICES, CORE | VILMA [...] (H) | 70 - 99 mg/dL | [facility] - | | | GLUCOSE, | [...] [facility] | [address] | [place], [place] | | | [facility] CARE | [address] | [address] | | | TESTS | | | [...] | | OF | | | | 06-18-2018 16:59:23 | | CARDIOLOGY | | + [...] DEPT OF | [address] | [place], [place] | | | CARDIOLOGY | [address] | [address] | | + + + + + [...] | + + + + + | [facility] | [address] | [place] [address] | | | SERVICES, CORE | PARK [...] | | | LABORATORY | | | [facility] | | | SERVICES, | | | [...] [facility] | [address] | [place] [address] | | | SERVICES, NATALEE | PARK [...] | + + + + + | [facility] | [address] | [place] [address] | | | ELIN, NATALEE | VILMA [...] (H) | 70 - 99 mg/dL | [facility] - | | | GLUCOSE, | [...] [facility] | [address] | [place], [place] | | | [facility]ARE | [address] | [address] | | | TESTS | | | [...] [facility] | [address] | [place], [place] | | | GL[facility]IA GE[facility]O OF [facility] | [address] | [address] | | | TESTS | | | [...] [facility] | [address] | [place] [address] | | | SERVICES, CORE | PARK [...] | | | LABORATORY | | | [facility] | | | SERVICES, | | | [...] the MDRD equation recommended by the | [facility] | | National Kidney Disease Education [...] | + + + + + | [facility] | [address] | [place] [address] | | | NATALEE WORTHINGTON | [address] | | | + + + + + OPERATION RECORD (10/12/2017 8:50 PM PDT) + + | Procedure Note | + + | Pilar Cotto MD - 10/12/2017 8:50 PM PDT Date of Service: 10/12/2017 | | Attending Surgeon: Chaz Munoz MD Naphthalene Still Operator(s): Randell Dixon M.D., | | fellow. George [...] saline. We then | | placed a 19-Costa Rican drain deep into the abscess cavity, tracking [...] 10/12/2017 19:50:06DT: 10/12/2017 20:50:54Job #: | | [id number] | + + X-RAY PORTABLE CHEST 1 [...] |Preliminary: Gurpreet Dunne MD | |Dictation initiated: Gurrpeet Dunne MD 10/13/2017 8:08 AM | + [...] + + + + + | [facility] | [address] | [place], [place] | | | [facility] | [address] | [address] | | | TESTS | | | [...] Service Account, Kostas Res In Interface - 10/12/2017 5:05 PM [...] [facility] | [address] | [place] [address] | | | NATALEE WORTHINGTON | [address] [...] | | | LABORATORY | | | [facility] | | | SERVICES, | | | [...] | + + + + + | [facility] | [address] [facility] | [place] [address] | | | ELIN, NATALEE | VILMA [...] 0300 dose on | [facility] | | 6/16, thanks! | LABORATORY | | | SERVICES, NATALEE | + + + + + + + + | Performing | Address | City/State/Zipcode | Phone Number | | Organization | | | | + + + + + | [facility] | [address] | [place] [address] | | | SERVICES, NATALEE | PARK [...] DEPT OF | [address] | [place], [place] | | | CARDIOLOGY | [address] | [address] | | + + + + + [...] + + + + | LAUREN | 477 | ms | [facility] [...] DEPT OF | [address] | [place], [place] | | | CARDIOLOGY | [address] | [address] | | + + + + + [...] | + + + + + | [facility] | [address] | [place] [address] | | | SERVICESNATALEE | [address] [...] + + | [facility] | [address] [facility] | [place] [address] | | | NATALEE WORTHINGTON | [address] [...] | | | LABORATORY | | | [facility] | | | SERVICES, | | | [...] | + + + + + | [facility] | [address] | [place] [address] | | | SERVICES, CORE | [address] | | | + + + + + PROCEDURE NOTE (10/10/2017 10:00 PM PDT) + + + | Narrative | Performed At | + + + | Darius Link MD 10/12/2017 11:11 AM OPERATIVE REPORT | | | DATE OF OPERATION: 10/10/2017 ATTENDING SURGEON: 1. Dr. Munoz | | | NATURAL GAS SHOTHOLE DRILLER: 1. Darius Link MD INDICATIONS: Dysphagia | | | and need for senior living nutrition access PREOPERATIVE DIAGNOSIS: | | | 1.Dysphagia and need for senior living nutrition access | | | POSTOPERATIVE DIAGNOSIS: [...] | | | [place] [id number] Chief Resident | | | Neurosurgery | [...] [facility] | [address] | [place] [address] | | | NATALEE WORTHINGTON | [address] [...] | | | LABORATORY | | | [facility] | | | SERVICES, | | | [...] | + + + + + | [facility] | [address] | [place] [address] | | | SERVICES, CORE | VILMA [...] | + + + + + | [facility] | [address] | [place] [address] | | | SERVICES, CORE | [address] | | | + + + + + OPERATION RECORD (10/10/2017 12:40 PM PDT) + + | Procedure Note | + + | Magdiel Stock MD - 10/10/2017 12:40 PM PDT Date of Service: 10/10/2017 Attending | | Surgeon: Magdiel Stock MD Naphthalene Still Operator(s): Cecilia Hernandez, | | . Preoperative Diagnoses: [...] This is a 67-year-old male. Please see [facility] for full details. He | [...] | the note for this encounter.Sonal Nunez [facility] [id number] [facility] | | [place] [phone] Orina, MDFAH/FELYD: | | 10/10/2017 11:52:15DT: 10/10/2017 12:40:41Job #: [id number] | | | | | |I was present for the critical portions of the procedure as described in the note for this encounter. | | | |Magdiel Stock MD | | | |Magdiel Stock MD | |[address] | |[address] [facility] | |[facility] | |[place] [address] | |[phone] | | | | | |Magdiel Stock MD | |JAYLAN/DUC | | | | | | /[id number] | + + X-RAY ABDOMEN 1 VIEW [...] + | [facility] - | [address] | [place] [address] | | | [place] | | | [...] + | [facility] - | [address] | [place] [address] | | | [place] | | | [...] Gram Stain: No squamous epithelial cells | [place] | | Many polymorphonuclear cells No organisms seen | | + + + + + + + + | Performing | Address | City/State/Zipcode | Phone Number | | Organization | | | | + + + + + | [facility] - | [address] | [place] [address] | | | [place] | | | | + + + [...] | + + + + + | [facility] - | [address] | [place] [address] | | | [facility] | | | | + [...] | + + + + + | [facility] - | [address] | [place] [address] | | | [place] | | | [...] Gram Stain: No squamous epithelial cells | [place] | | Many polymorphonuclear cells No organisms seen | | + + + + + + + + | Performing | Address | City/State/Zipcode | Phone Number | | Organization | | | | + + + + + | [facility] - | [address] | [place] [address] | | | [place] | | | | + + + [...] + | [facility] - | [address] | [place] [address] | | | [facility] | | | | + [...] Gram Stain: No squamous epithelial cells | [place] | | Few polymorphonuclear cells No organisms seen | | + + + + + + + + | Performing | Address | City/State/Zipcode | Phone Number | | Organization | | | | + + + + + | [facility] | [address] | [place] [address] | | | [facility] | | | | + [...] + | [facility] - | [address] | [place] [address] | | | [place] | | | [...] + | [facility] - | [address] | [place] [address] | | | [place] | | | [...] Gram Stain: No squamous epithelial cells | [place] | | Moderate polymorphonuclear cells No organisms seen | | + + + + + + + + | Performing | Address | City/State/Zipcode | Phone Number | | Organization | | | | + + + + + | [facility] - | [address] | [place] [address] | | | [place] | | | | + + + [...] + | [facility] - | [address] | [place] [address] | | | [place] | | | [...] + | [facility] - | [address] | [place] [address] | | | [place] | | | [...] Gram Stain: No squamous epithelial cells | [facility] | | Moderate polymorphonuclear cells No organisms seen | | + + + + + + + + | Performing | Address | City/State/Zipcode | Phone Number | | Organization | | | | + + + + + | [facility] | [address] | [place] [address] | | | [place] | | | [...] + | [facility] - | [address] | [place] [address] | | | [place] | | | | + + + [...] + | [facility] - | [address] | [place] [address] | | | [place] | | | [...] - | | | | | | [place] | | + + + + + [...] Gram Stain: No squamous epithelial cells | [place] | | Moderate polymorphonuclear cells No organisms seen | | + + + + + + + + | Performing | Address | City/State/Zipcode | Phone Number | | Organization | | | | + + + + + | [facility] | [address] | [place], [place] [address] | | | [facility] | | | | + [...] detected | AIRPORT - | | | [facility] | + + + + + + + + | Performing | Address | City/State/Zipcode | Phone Number | | Organization | | | | + + + + + | [facility] - | [address] | [place] [address] | | | [place] | | | | + + + [...] [facility] | [address] | [place] [address] | | | SERVICES, CORE | PARK [...] | + + + + + | [facility] | [address] | [place] [address] | | | NATALEE WORTHINGTON | PARK [...] | + + + + + | [facility] | [address] | [place] [address] | | | SERVICES, CORE | VILMA [...] | | | LABORATORY | | | [facility] | | | SERVICES, | | | [...] | + + + + + | [facility] | [address] | [place] [address] | | | SERVICES, CORE | [address] | | | + + + + + 12 LEAD ECG (10/10/2017 2:08 AM PDT) + + + + + + | Component | Value | Ref Range | Performed | Pathologist | | | | | At | Signature | + + + + + + | VENTRICULAR | 117 | bpm | [facility] | | | RATE | [...] DEPT OF | [address] | [place], [place] | | | CARDIOLOGY | [address] | [address] | | + + + + + [...] + + + + | PRODUCT | [id number] | | [facility] | | | UNIT [...] + + + + | EXPIRATION | [id number] | | [facility] | | | DATE [...] + + + + | BLOOD | [id number] | | [facility] | | | PRODUCT [...] [facility] | [address] | [place] [address] | | | SERVICES, | [address] [...] + + + + | PRODUCT | [id number] | | [facility] | | | UNIT [...] + + + + | EXPIRATION | [id number] | | [facility] | | | DATE [...] + + + + | BLOOD | [id number] | | [facility] | | | PRODUCT [...] [facility] | [address] | [place] [address] | | | SERVICES, | [address] [...] 1 | Antibody present, unable | | [facility] | | | | to identify | [...] [facility] | [address] | [place] [address] | | | SERVICES, | [address] [...] [facility] | [address] | [place] [address] | | | SERVICES, | [address] [...] [facility] | [address] | [place] [address] | | | SERVICES, | [address] [...] valves (2.5 - 3.5) INR APTT | [facility], CORE | | Therapeutic Range: (75 - 120) sec | | | Heparin levels of 0.35 - 0.7 U/mL | | + + + + + + + + | Performing | Address | City/State/Zipcode | Phone Number | | Organization | | | | + + + + + | [facility] | [address] | [place] [address] | | | NATALEE WORTHINGTON | [address] [...] + + + + | QTC-BABRAYDONTT | 457 | ms | [facility] [...] DEPT OF | [address] | [place], [place] | | | CARDIOLOGY | [address] | [address] | | + + + + + [...] [facility] | | | | | [facility] | | | | + [...] PIYUSH | [address] | [place], [place] | | | [facility] | [address] | [address] | | | TESTS | | | [...] + | SELENA MCNAIR | [address] | [place] [address] | | | SERVICES, NATALEE | [address] [...] | + + + + + | [facility] | [address] [facility] | [place] [address] | | | SERVICES, CORE | [address]IL[address] [...] | | | LABORATORY | | | [facility] | | | SERVICES, | | | [...] | + + + + + | [facility] | [address] | [place] [address] | | | SERVICES, CORE | [address] [...] (H) | 70 - 99 mg/dL | [facility] - | | | GLUCOSE, | [...] PICKETT | [address] | [place], [place] | | | GLORIA GENAO OF [facility] | [address] | [address] | | | TESTS | | | [...] MARQUAM | [address] | [place], [place] | | | [facility] | [address] | [address] | | | TESTS | | | [...] MARQUAM | [address] | [place], [place] | | | [facility] | [address] | [address] | | | TESTS | | | [...] PICKETT | [address] | [place], [place] | | | GLORIA GENAO OF CARE | [address] | [address] | | | TESTS | | | [...] MARQUAM | [address] | [place], [place] | | | GL[facility]IA GENOA OF CARE | [address] | [address] | | | TESTS | | | [...] | + + + + + | [facility] | [address] | [place] [address] | | | SERVICES, CORE | PARK [...] [facility] | [address] | [place] [address] | | | SERVICES, CORE | [address] [...] | | | LABORATORY | | | [facility] | | | SERVICES, | | | [...] | + + + + + | a[facility]uishou | [address] | [place] [address] | | | NATALEE WORTHINGTON | [address] [...] PIYUSH | [address] | [place], [place] | | | GLORIA GENAO OF [facility] | [facility] | [address] | | | TESTS | | | [...] (H) | 70 - 99 mg/dL | [facility] - | | | GLUCOSE, | [...] PICKETT | [address] | [place], [place] | | | [facility] | [address] | [address] | | | TESTS | | | [...] + + | [facility] DEPT OF | [address] | [place], [place] | | | CARDIOLOGY | [address] | [address] | | + + + + + [...] MARQUAM | [address] | [place], [place] | | | [facility] | [address] | [address] | | | TESTS | | | [...] [facility] | [address] | [place] [address] | | | SERVICES, CORE | PARK [...] [facility] | [address] | [place] [address] | | | SERVICES, CORE | PARK [...] | | | LABORATORY | | | [facility] | | | SERVICES, | | | [...] | + + + + + | [facility] | [address] [facility] | [place] [address] | | | NATALEE WORTHINGTON | [address] [...] MARQUAM | [address] | [place], [place] | | | GLORIA GENAO OF CARE | [facility] | [address] | | | TESTS | | | [...] PICKETT | [address] | [place], [place] | | | GLORIA GENAO OF CARE | [address] | [address] | | | TESTS | | | [...] MARQUAM | [address] | [place] | | | GL[facility]IA GENAO OF CARE | [address] | [address] | | | TESTS | | | [...] RAPHAELAM | [address] | [place], [place] | | | GLORIA GENAO OF [facility] | [address] | [address] | | | TESTS | | | [...] DEPT OF | [address] | [place], [place] | | | CARDIOLOGY | [address] | [address] | | + + + + + [...] | + + + + + | [facility] | [address] | [place] [address] | | | SERVICES, CORE | [address] | | | + + + + + MAGNESIUM, PLASMA (10/05/2017 8:38 AM PDT) + +-------+ + + + | Component | Value | Ref Range | Performed | Pathologist | | | | | At | Signature | + +-------+ + + + | MAGNESIUM,P | 1.9 | 1.6 - 2.6 mg/dL | [facility] | | | LASMA | | [...] [facility] | [address] | [place] [address] | | | ELIN, NATALEE | [address] | | | + [...] | | | LABORATORY | | | [facility] | | | SERVICES, | | | [...] 10 | 4 - 11 mmol/L | [facility] [...] | + + + + + | [facility] | [address] [facility] | [place] [address] | | | SERVICES, CORE | [address] [...] MARQUAM | [address] | [place], [place] | | | [facility] | [address] | [address] | | | TESTS | | | [...] + | [facility] | [address] | [place], [place] | | | [facility] | [address] | [address] | | | TESTS | | | [...] + + + | SELENA PICKETT | [address] | [place], [place] | | | [facility] | [address] | [address] | | | TESTS | | | [...] MARQUAM | [address] | [place], [place] | | | [facility] | [facility] | [address] | | | TESTS | | | [...] - MARQUAM | [address] | [place] | | | [facility] | [address] | [address] | | | TESTS | | | [...] [facility] | [address] | [place] [address] | | | ELIN, NATALEE | [address] [...] | + + + + + | [facility] | [address] [facility] | [place] [address] | | | SERVICES, CORE | [address] [...] | | | LABORATORY | | | [facility] | | | SERVICES, | | | [...] | + + + + + | [facility] | [address] | [place] [address] | | | SERVICES, CORE | [address] [...] (H) | 70 - 99 mg/dL | [facility] - | | | GLUCOSE, | [...] PICKETT | [address] | [place], [place] | | | GLORIA GENAO OF CARE | [address] | [address] | | | TESTS | | | [...] MARKHRISAM | [address] | [place] | | | GL[facility]IA GENAO OF CARE | [address] | [address] | | | TESTS | | | [...] | + + + + + | [facility] | [address] | [place] [address] | | | SERVICES, [facility] | [address] | | | + [...] by | | | | | | [employer],[address] | | | | | | Rogelio Pickard [facility] [place] | | | | | | [phone] | | | | | | [phone]. | | | | | | Gui [...] [facility] | [address] | [place], [place] | | | [facility] | | [address] | | + + + + + [...] | + + + + + | [facility] | [address] | [place] [address] | | | SERVICES, CORE | [address]ARK [...] | + + + + + | [facility] | [address] | [place] [address] | | | NATALEE WORTHINGTON | [address] [...] modified from | [facility] | | original senior qa analyst's approved specifications. The performance | LABORATORY | | of the POLICY WRITER HIV Combo test, with or without confirmation, was not | SERVICES, | | tested in pediatric patients less than 2 years of age. [facility] | SPECIAL IMM + | | guidelines recommend virologic assays (i.e. HIV 1 VIRAL LOAD) that | [facility] | | directly detect HIV for diagnosis of HIV infection in infants younger | | | than 2 years. | | + + + + + + + + | Performing | Address | City/State/[facility] | Phone Number | | Organization | | | | + + + + + | [facility] | [address] | [place] [address] | | | SERVICES SPECIAL | [address] | | | [...] MARQUAM | [address] | [place], [place] | | | GLORIA GENAO OF [employer] | [address] | [address] | | | TESTS | | | [...] PICKETT | [address] | [place], [place] | | | [facility] | [address] | [address] | | | TESTS | | | [...] [facility] | [address] | [place] [address] | | | NATALEE WORTHINGTON | PARK [...] | + + + + + | [facility] | [address] | [place] [address] | | | NATALEE WORTHINGTON | [address] [...] | | | LABORATORY | | | [facility] | | | SERVICES, | | | [...] | + + + + + | [facility] | [address] | [place] [address] | | | SERVICES, CORE | [address] | | | + + + + + CAPILLARY BLOOD GLUCOSE (NO CHG), CITLALY (10/03/2017 12:05 AM PDT) + +-------+ + [...] PIYUSH | [address] | [place], [place] | | | GLORIA GENAO OF CARE | [address] | [address] | | | TESTS | | | [...] PICKETT | [address] | [place], [place] | | | [facility] | [address] | [address] | | | TESTS | | | [...] DEPT OF | [address] | [place], [place] | | | CARDIOLOGY | [address] | [address] | | + + + + + [...] Note | + + | Service Account, Tamecco In Interface - 10/02/2017 2:07 PM PDT [...] PICKETT | [address] | [place], [place] | | | GL[facility]IA GENAO OF CARE | [address] | [address] | | | TESTS | | | [...] MARQUAM | [address] | [place], [place] | | | [facility] | [address] | [address] | | | TESTS | | | [...] [facility] | [address] | [place] [address] | | | SERVICES, NATALEE | PARK [...] [facility] | [address] | [place] [address] | | | SERVICES, CORE | [address] [...] | | | LABORATORY | | | [facility] | | | SERVICES, | | | [...] | + + + + + | [facility] | [address] [facility] | [place] [address] | | | NATALEE WORTHINGTON | [address] [...] MARQUAM | [address] | [place], [place] | | | GLORIA GENAO OF [employer] | [facility] | [address] | | | TESTS | | | [...] PICKETT | [address] | [place], [place] | | | GLORIA GENAO OF [facility] | [address] | [address] | | | TESTS | | | [...] Note | + + | Service Account, Minglebox Res In Interface - 10/01/2017 2:15 PM [...] PICKETT | [address] | [place], [place] | | | [employer] OF [facility] | [address] | [address] | | | TESTS | | | [...] Note | + + | Service Account, Minglebox Res In Interface - 10/01/2017 11:34 AM [...] MARQUAM | [address] | [place], [place] | | | [facility] | [facility] | [address] | | | TESTS | | | [...] | + + + + + | [facility] | [address] [facility] | [place] [address] | | | SERVICES, CORE | [address]ARK [...] [facility] | [address] | [place] [address] | | | SERVICES, CORE | [address]ARK [...] | | | LABORATORY | | | [facility] | | | SERVICES, | | | [...] the MDRD equation recommended by the | [facility] | | National Kidney Disease Education [...] | + + + + + | [facility] | [address] | [place] [address] | | | SERVICES, CORE | [address] [...] MARQUAM | [address] | [place] | | | GLORIA GENAO OF CARE | [facility] | [address] | | | TESTS | | | [...] PICKETT | [address] | [place] | | | [facility] | [address] | [address] | | | TESTS | | | [...] [facility] DEPT OF | [address] [facility] | [place], [place] | | | CARDIOLOGY | [address] | [address] | | + + + + + [...] MARQUAM | [address] | [place], [place] | | | [facility] | [address] | [address] | | | TESTS | | | [...] + + + | SELENA PICKETT | [address] | [place] | | | GLORIA GENAO OF [facility] | [address] | [address] | | | TESTS | | | [...] [facility] | [address] | [place] [address] | | | NATALEE WORTHINGTON | [address] [...] | + + + + + | [facility] | [address] | [place] [address] | | | NATALEE WORTHINGTON | [address] [...] | | | LABORATORY | | | [facility] | | | SERVICES, | | | [...] | + + + + + | [facility] | [address] | [place] [address] | | | SERVICES, CORE | PARK [...] PIYUSH | [address] | [place], [place] | | | GLORIA GENAO OF [employer] | [address] | [address] | | | TESTS | | | [...] - PIYUSH | [address] | [place], [place] | | | GLORIA GENAO OF CARE | [facility] | [address] | | | TESTS | | | [...] (H) | 70 - 99 mg/dL | [facility] - | | | GLUCOSE, | [...] PICKETT | [address] | [place], [place] | | | GLORIA GENAO OF [facility] | [facility] | [address] | | | TESTS | | | [...] DEPT OF | [address] | [place], [place] | | | CARDIOLOGY | [address] | [address] | | + + + + + [...] PIYUSH | [address] | [place], [place] | | | GLORIA GENAO OF [facility] | [address] | [address] | | | TESTS | | | [...] [facility] | [address] | [place] [address] | | | SERVICES, CORE | [address] [...] | | | LABORATORY | | | [facility] | | | SERVICES, | | | [...] | + + + + + | [facility] | [address] | [place] [address] | | | NATALEE WORTHINGTON | [address]IL[address] [...] | + + + + + | [facility] | [address] | [place] [address] | | | SERVICES, CORE | [address] [...] (H) | 70 - 99 mg/dL | [facility] - | | | GLUCOSE, | [...] PICKETT | [address] | [place] | | | [facility] | [address] | [address] | | | TESTS | | | [...] MARQUAM | [address] | [place] | | | GL[facility] GENAO OF CARE | [address] | [address] | | | TESTS | | | [...] RAPHAELAM | [address] | [place] | | | [facility] | [address] | [address] | | | TESTS | | | [...] + + + + + | [facility] DEPT OF | [address] | [place], [place] | | | CARDIOLOGY | [address] | [address] | | + + + + + [...] MARQUAM | [address] | [place] | | | [facility] | [facility] | [address] | | | TESTS | | | [...] [facility] | [address] | [place] [address] | | | SERVICES, CORE | PARK [...] [facility] | [address] | [place] [address] | | | SERVICES, CORE | [address]ARK [...] | | | LABORATORY | | | [facility] | | | SERVICES, | | | [...] | + + + + + | [facility] | [address] [facility] | [place] [address] | | | NATALEE WORTHINGTON | VILMA [...] - MARQUAM | [address] | [place], [place] | | | [facility] | [address] | [address] | | | TESTS | | | [...] PICKETT | [address] | [place], [place] | | | GLORIA GENAO OF [employer] | [address] | [address] | | | TESTS | | | [...] poorly cleared with dry swallows. Please see [facility] pathology report for full details | | [...] + | SELENA PICKETT | [address] | [place], [place] | | | [facility] | [address] | [address] | | | TESTS | | | [...] PIYUSH | [address] | [place], [place] | | | GLORIA GE[facility] OF [employer] | [address] | [address] | | | TESTS | | | [...] | + + + + + | [facility] | [address] | [place] [address] | | | SERVICES, CORE | [address] | | | + + + + + MAGNESIUM, PLASMA (09/27/2017 5:10 AM PDT) + +-------+ + + + | Component | Value | Ref Range | Performed | Pathologist | | | | | At | Signature | + +-------+ + + + | MAGNESIUM,P | 1.9 | 1.6 - 2.6 mg/dL | [facility] | | | L[facility] | | | [...] [facility] | [address] | [place] [address] | | | SERVICES, NATALEE | [address] [...] | | | LABORATORY | | | [facility] | | | SERVICES, | | | [...] | + + + + + | [facility] | [address] | [place] [address] | | | SERVICES, NATALEE | VILMA [...] MARQUAM | [address] | [place], [place] | | | [facility] GE[facility]O OF CARE | [address] | [address] | | | TESTS | | | [...] (H) | 70 - 99 mg/dL | [facility] - | | | GLUCOSE, | [...] PIYUSH | [address] | [place] | | | GL[facility]IA GENAO OF CARE | [address] | [address] | | | TESTS | | | [...] M[facility] OF | [address] | [place], [place] | | | CARDIOLOGY | [address] | [address] | | + + + + + [...] - MARQUAM | [address] | [place] | | | [facility] | [address] | [address] | | | TESTS | | | [...] + + + | SELENA PICKETT | [address] | [place] | | | [employer] OF [facility] | [address] | [address] | | | TESTS | | | [...] MARQUAM | [address] | [place], [place] | | | [employer] | [address] | [address] | | | TESTS | | | [...] | + + + + + | [facility] | [address] | [place] [address] | | | SERVICES, CORE | PARK [...] [facility] | [address] | [place] [address] | | | SERVICES, CORE | [address]ILMA [...] | | | LABORATORY | | | [facility] | | | SERVICES, | | | [...] | + + + + + | a[facility]uishou | [address] | [place] [address] | | | NATALEE WORTHINGTON | VILMA [...] SELENA PICKETT | [address] | [place] | | | [employer] OF [facility] | [address] | [address] | | | TESTS | | | [...] | + + + + + | [facility] | [address] | [place] [address] | | | SERVICES, CORE | [address] | | | + + + + + MAGNESIUM, PLASMA (09/25/2017 5:36 AM PDT) + +-------+ + + + | Component | Value | Ref Range | Performed | Pathologist | | | | | At | Signature | + +-------+ + + + | MAGNESIUM,P | 2.0 | 1.6 - 2.6 mg/dL | [facility] [...] [facility] | [address] | [place] [address] | | | NATALEE WORTHINGTON | VILMA [...] | | | LABORATORY | | | [facility] | | | SERVICES, | | | [...] | + + + + + | [facility] | [address] [facility] | [place] [address] | | | SERVICES, NATALEE | [address]ILMA [...] + + + + | [facility]BAB[facility] | 457 | ms | [facility] [...] | + + + + + | [facility] | [address] | [place], [place] | | | CARDIOLOGY | [address] | [address] | | + + + + + [...] 09/24/2017 2:43 PM Preliminary: Edelmira Parsons | Prabhakar CABRERA | | Fluoro Time 55 second(s) | [...] Note | + + | Service Account, [employer] In Interface - 09/24/2017 4:09 PM PDT [...] [facility] | [address] | [place] [address] | | | SERVICES, CORE | PARK [...] | | | LABORATORY | | | [facility] | | | SERVICES, | | | [...] the MDRD equation recommended by the | [facility] | | National Kidney Disease Education [...] | + + + + + | [facility] | [address] | [place] [address] | | | NATALEE WORTHINGTON | [...] [facility] | [address] | [place] [address] | | | SERVICES, CORE | PARK [...] | + + + + + | [facility] | [address] | [place] [address] | | | NATALEE WORTHINGTON | VILMA [...] | + + + + + | [facility] | [address] | [place] [address] | | | SERVICES, CORE [...] | | | LABORATORY | | | [facility] | | | SERVICES, | | | [...] | + + + + + | [facility] | [address] | [place] [address] | | | SERVICES, CORE | VILMA [...] (H) | 70 - 99 mg/dL | [facility] - | | | GLUCOSE, | [...] [facility] | [address] | [place], [place] | | | GLORIA GENAO OF [facility] | [address] | [address] | | | TESTS | | | [...] [facility] | [address] | [place], [place] | | | GLORIA GENAO OF [facility] | [address] | [address] | | | TESTS | | | [...] | + + + + + | [facility] | [address] | [place] [address] | | | SERVICES, CORE | VILMA [...] DEPT OF | [address] | [place], [place] | | | CARDIOLOGY | [address] | [address] | | + + + + + [...] [facility] | [address] | [place] [address] | | | SERVICESNATALEE | [address] [...] | + + + + + | [facility] | [address] | [place] [address] | | | NATALEE WORTHINGTON | V[place]MA [...] | | | LABORATORY | | | [facility] | | | SERVICES, | | | [...] | + + + + + | [facility] | [address] | [place] [address] | | | SERVICES, CORE | [address] | | | + + + + + CAPILLARY BLOOD GLUCOSE (NO CHG), CITLALY (09/21/2017 10:01 PM PDT) + +---------+ + [...] [facility] | [address] | [place], [place] | | | GLORIA GENAO [facility] | [address] | [address] | | | TESTS | | | [...] MD 09/22/2017 8:40 AM | |Preliminary: Gurpreet Tayolr MD 09/22/2017 7:42 AM | + + [...] | + + + + + | [facility] | [address] | [place] [address] | | | SERVICES, CORE | VILMA [...] [facility] | [address] | [place] [address] | | | SERVICES, CORE | PARK [...] | | | LABORATORY | | | [facility] | | | SERVICES, | | | [...] | + + + + + | [facility] | [address] | [place] [address] | | | SERVICES, CORE | VILMA [...] Note | + + | Service Account, [email or web address] Res In Interface - 09/20/2017 6:25 PM [...] Note | + + | Service Account, [employer] Res In Interface - 09/20/2017 6:26 PM [...] Adal, Radiant Res In Interface - 09/20/2017 5:17 [...] + + | [facility] | [address] | [place], [place] | | | CARDIOLOGY | [address] | [address] | | + + + + + [...] [facility] | [address] | [place] [address] | | | SERVICES, CORE | PARK [...] [facility] | [address] | [place] [address] | | | NATALEE WORTHINGTON | VILMA [...] | | | LABORATORY | | | [facility] | | | SERVICES, | | | [...] | + + + + + | [facility] | [address] | [place] [address] | | | SERVICES, CORE | PARK [...] [facility] | [address] | [place] [address] | | | NATALEE WORTHINGTON | VILMA [...] + | [facility] | [address] | [place] [address] | | | NATALEE WORTHINGTON | VILMA [...] | | | LABORATORY | | | [facility] | | | SERVICES, | | | [...] | + + + + + | [facility] | [address] [facility] [facility] [address] | [place] [address] | | | SERVICES, CORE | [facility] [...] [facility] | [address] | [place] [address] | | | NATALEE WORTHINGTNO | [address] | | | + [...] | + + + + + | [facility] | [address] | [place] [address] | | | SERVICES, NATALEE | PARK [...] | | | LABORATORY | | | [facility] | | | SERVICES, | | | [...] | + + + + + | [facility] | [address] | [place] [address] | | | SERVICES, CORE | V[address] [...] [facility] | [address] | [place] [address] | | | SERVICES, CORE | PARK [...] [facility] | [address] | [place] [address] | | | SERVICES, CORE | PARK [...] | | | LABORATORY | | | [facility] | | | SERVICES, | | | [...] the MDRD equation recommended by the | [facility] | | National Kidney Disease Education [...] | + + + + + | [facility] | [address] | [place] [address] | | | NATALEE WORTHINGTON | [address] [...] Note | + + | Service Account, Minglebox Res In Interface - 09/16/2017 1:34 PM [...] Note | + + | Service Account, Tamecco In Interface - 09/16/2017 11:41 AM PDT [...] | + + + + + | [facility] | [address] | [place] [address] | | | SERVICES, CORE | PARK [...] [facility] | [address] | [place] [address] | | | SERVICES, CORE | PARK [...] | | | LABORATORY | | | [facility] | | | SERVICES, | | | [...] | + + + + + | [facility] | [address] | [place] [address] | | | NATALEE WORTHINGTON | [address] [...] | pause verifies correct patient, procedure, equipment, security support analyst | | | and site/side marked as [...] | area Basilic vein. Catheter lot number: [id number] with a length of 55 | | [...] [facility] | [address] | [place] [address] | | | SERVICES, CORE | PARK [...] [facility] | [address] | [place] [address] | | | SERVICES, NATALEE | [address]IL[address] [...] | | | LABORATORY | | | [facility] | | | SERVICES, | | | [...] | + + + + + | [facility] | [address] | [place] [address] | | | SERVICES, NATALEE | [address] [...] | + + + + + | [facility] | [address] [facility] | [place] [address] | | | SERVICES, CORE | V[address] [...] [facility] | [address] | [place] [address] | | | SERVICES, CORE | PARK [...] | | | LABORATORY | | | [facility] | | | SERVICES, | | | [...] [facility] | [address] | [place] [address] | | | SERVICES, CORE | PARK [...] | + + + + + | [facility] | [address] | [place] [address] | | | SERVICES, CORE | VIL[address] [...] [facility] | [address] | [place] [address] | | | SERVICES, CORE | PARK [...] | | | LABORATORY | | | [facility] | | | SERVICES, | | | [...] | + + + + + | [facility] | [address] | [place] [address] | | | SERVICES, [facility] | [address] | | | + + + + + X-RAY ABD LTD FEEDING TUBE EVAL (09/12/2017 6:50 AM PDT) + + | Specimen | + + | | + + + + + | Narrative | Performed At | + + + | EXAM: ABD LTD FEEDING TUBE EVAL HISTORY: Dobbhoff tube | [facility] | | placement. COMPARISON: 09/10/2017. FINDINGS/IMPRESSION: Tip [...] Note | + + | Service Account, Minglebox Res In Interface - 09/12/2017 9:13 AM [...] [facility] | [address] | [place] [address] | | | NATALEE WORTHINGTON | [address] [...] + + | [facility] | [address] [facility] | [place] [address] | | | SERVICES, NATALEE | [address] [...] | | | LABORATORY | | | [facility] | | | SERVICES, | | | [...] | + + + + + | [facility] | [address] | [place] [address] | | | SERVICES, CORE | PARK [...] Note | + + | Service Account, Minglebox Res In Interface - 09/12/2017 6:48 AM [...] | + + + + + | [facility] | [address] | [place] [address] | | | SERVICES, CORE | PARK [...] [facility] | [address] | [place] [address] | | | SERVICES, CORE | [address] [...] | | | LABORATORY | | | [facility] | | | SERVICES, | | | [...] the MDRD equation recommended by the | [facility] | | National Kidney Disease Education [...] | + + + + + | [facility] | [address] | [place] [address] | | | NATALEE WORTHINGTON | [address] [...] | + + + + + | [facility] | [address] | [place] [address] | | | NATALEE WORTHINGTON | [address] [...] Note | + + | Service Account, Minglebox Res In Interface - 09/10/2017 2:08 PM [...] | | | + +---------+ + + [facility] VENOUS DUPLEX LOWER [...] Note | + + | Service Account, Tamecco In Interface - 09/10/2017 2:31 PM PDT [...] [facility] | [address] | [place] [address] | | | SERVICES, NATALEE | PARK [...] | + + + + + | [facility] | [address] | [place] [address] | | | SERVICES, CORE | [address] [...] | + + + + + | [facility] | [address] | [place] [address] | | | SERVICES, CORE | [address] | | | + + + + + MAGNESIUM, PLASMA (09/10/2017 5:08 AM PDT) + +-------+ + + + | Component | Value | Ref Range | Performed | Pathologist | | | | | At | Signature | + +-------+ + + + | MAGNESIUM,P | 2.1 | 1.6 - 2.6 mg/dL | [facility] | | | LASMA | | [...] [facility] | [address] | [place] [address] | | | SERVICES, NATALEE | [address] [...] | | | LABORATORY | | | [facility] | | | SERVICES, | | | [...] | + + + + + | [facility] | [address] | [place] [address] | | | SERVICES, CORE | VIL[address] [...] DEPT OF | [address] | [place], [place] | | | CARDIOLOGY | [address] | [address] | | + + + + + [...] Note | + + | Service Account, HeribertoFastConnect In Interface - 09/10/2017 11:11 AM PDT [...] [facility] | [address] | [place], [place] | | | GLORIA GENAO OF CARE | [address] | [address] | | | TESTS | | | [...] [facility] | [address] | [place] [address] | | | SERVICES, CORE | PARK [...] MCHC, PLT, IG% and IG# effective | [facility] | | 09/06/2107 | LABORATORY | | | NATALEE WORTHINGTON | + + + + + + + + | Performing | Address | City/State/Zipcode | Phone Number | | Organization | | | | + + + + + | [facility] | [address] [facility] | [place] [address] | | | NATALEE WORTHINGTON | [address] [...] | | | LABORATORY | | | [facility] | | | SERVICES, | | | [...] | + + + + + | [facility] | [address] | [place] [address] | | | SERVICES, CORE | PARK [...] [facility] | [address] | [place] [address] | | | NATALEE WORTHINGTON | [address] [...] | | | LABORATORY | | | [facility] | | | SERVICES, | | | [...] | + + + + + | [facility] | [address] | [place] [address] | | | SERVICES, NATALEE | [address] [...] [facility] | [address] | [place] [address] | | | SERVICES, CORE | V[address] [...] | + + + + + | [facility] | [address] | [place] [address] | | | SERVICES, CORE | V[address] [...] [facility] | [address] [facility] | [place], [place] | | | CARDIOLOGY | [address] | [address] | | + + + + + [...] + + | Performing | Address | City/State/[facility] | Phone Number | | Organization | [...] | + + + + + | [facility] | [address] | [place] [address] | | | SERVICES, CORE | [address] [...] | | | LABORATORY | | | [facility] | | | SERVICES, | | | [...] the MDRD equation recommended by the | [facility] | | National Kidney Disease Education [...] | + + + + + | [facility] | [address] | [place] [address] | | | SERVICES, CORE | PARK [...] [facility] | [address] | [place] [address] | | | NATALEE WORTHINGTON | [address] [...] FEEDING TUBE EVAL 09/06/17 18:14:00 COMPARISON: | [facility] | | None FINDINGS: Feeding tube has [...] Note | + + | Service Account, Minglebox Res In Interface - 09/07/2017 10:46 AM [...] + + | [facility] | [address] | [place], [place] | | | CARDIOLOGY | [address] | [address] | | + + + + + [...] | | | attempt. Midline lot number [id number]; there was positive blood | | | [...] | | | LABORATORY | | | [facility] | | | SERVICES, | | | [...] | + + + + + | [facility] | [address] [facility] | [place] [address] | | | NATALEE WORTHINGTON | [address] [...] to administering the 01:30 dose on | [facility] | | 09/06, thanks! | LABORATORY | | | NATALEE WORTHINGTON | + + + + + + + + | Performing | Address | City/State/Zipcode | Phone Number | | Organization | | | | + + + + + | [facility] | [address] | [place] [address] | | | NATALEE WORTHINGTON | [address] [...] Note | + + | Service Account, [email or web address] Res In Interface - 09/05/2017 10:16 AM [...] | + + + + + | [facility] | [address] | [place] [address] | | | SERVICES, CORE | [address] | | | + + + + + MAGNESIUM, PLASMA (09/05/2017 3:54 AM PDT) + +-------+ + + + | Component | Value | Ref Range | Performed | Pathologist | | | | | At | Signature | + +-------+ + + + | MAGNESIUM,P | 1.8 | 1.6 - 2.6 mg/dL | [facility] [...] [facility] | [address] | [place] [address] | | | SERVICES, CORE | [address] [...] | | | LABORATORY | | | [facility] | | | SERVICES, | | | [...] | + + + + + | [facility] | [address] [facility] | [place] [address] | | | NATALEE WORTHINGTON | [address] [...] | | | LABORATORY | | | [facility] | | | SERVICES, | | | [...] | + + + + + | [facility] | [address] | [place] [address] | | | SERVICES, CORE | [address] | | | + + + + + PROCEDURE NOTE (09/04/2017 2:04 PM PDT) + + + | Narrative | Performed At | + + + | CB Betancourt 09/04/2017 2:05 PM Procedure Note: | | | Chest Tube Removal Name: [place] Temple 09/04/2017 | | | Time: 2:05 PM Performed By: CB eHnson Procedure | | | Details: The patient [...] tomorrow morning. CB Henson Pager / ID: [id number] | | + + + CULTURE, SPUTUM (09/04/2017 1:17 PM PDT) + + | Specimen | + + | Sputum - | | Endotracheal tube | | tip | + + + + + | Narrative | Performed At | + + + | Culture Report: 1+ Oral Janessa Gram Stain: No squamous | [facility] - | | epithelial cells Rare polymorphonuclear cells No organisms seen | [facility] - | | | [place] | + + + + + + + + | Performing | Address | City/State/Zipcode | Phone Number | | Organization | | | | + + + + + | [facility] - | [address] | [place] [address] | | | [place] | | | [...] [facility] | [address] | [place] [address] | | | SERVICES, CORE | PARK [...] | [facility] | | | GRAVITY | [place] performed by | | LABORATORY | | [...] | + + + + + | [facility] | [address] | [place] [address] | | | SERVICES, CORE | [address] | | | + + + + + CULTURE, BLOOD BACTI & YEAST [facility] (09/04/2017 1:16 PM PDT) + + + [...] [facility] | [address] | [place] [address] | | | SERVICES, CORE | PARK [...] | + + + + + | [facility] | [address] [facility] | [place] [address] | | | SERVICES, CORE | PARK [...] [facility] | [address] | [place], [place] | | | CARDIOLOGY | [address] | [address] | | + + + + + [...] Note | + + | Service Account, [email or web address] Res In Interface - 09/04/2017 9:49 AM [...] [facility] | [address] | [place] [address] | | | SERVICES, CORE | PARK [...] [facility] | [address] | [place] [address] | | | SERVICES, CORE | PARK [...] | | | LABORATORY | | | [facility] | | | SERVICES, | | | [...] | + + + + + | [facility] | [address] [facility] | [place] [address] | | | ELIN, NATALEE | [address] [...] | + + + + + | [facility] | [address] | [place] [address] | | | SERVICES, CORE | [address] | | | + + + + + CAPILLARY BLOOD GLUCOSE (NO CHG)CITLALY (09/04/2017 12:27 AM PDT) + +---------+ + [...] [facility] | [address] | [place], [place] | | | GLORIA GENAO OF CARE | [address] | [address] | | | TESTS | | | [...] [facility] | [address] | [place], [place] | | | GLORIA GENAO OF CARE | [facility] | [address] | | | TESTS | | | [...] (H) | 70 - 99 mg/dL | [facility] - | | | GLUCOSE, | [...] [facility] | [address] | [place], [place] | | | GLORIA GENAO OF CARE | [facility] | [address] | | | TESTS | | | [...] [facility] | [address] | [place], [place] | | | JOHN GENAO | [address] | [address] | | | TESTS | | | [...] Note | + + | Service Account, Tamecco In Interface - 09/03/2017 10:27 AM PDT [...] + | [facility] - | [address] | [place] [address] | | | [place] | | | [...] | + + + + + | [facility] | [address] [facility] | [place] [address] | | | SERVICES, CORE | [address] | | | + + + + + X-RAY ABD LTD FEEDING TUBE EVAL (09/03/2017 4:32 AM PDT) + + | Specimen | + + | | + + + + + | Narrative | Performed At | + + + | EXAM: Single supine view of the abdomen. History: NGT placement | [facility] | | Comparison: 09/02/2017. IMPRESSION: Wires, leads, [...] detected | [facility] - | | | [place] | + + + + + + + + | Performing | Address | City/State/Zipcode | Phone Number | | Organization | | | | + + + + + | [employer] [facility] - | [address] | [place] [address] | | | [place] | | | [...] | + + + + + | [facility] | [address] [facility] | [place] [address] | | | SERVICES, CORE | PARK [...] [facility] | [address] | [place] [address] | | | SERVICES, CORE | PARK [...] | | | LABORATORY | | | [facility] | | | SERVICES, | | | [...] the MDRD equation recommended by the | [facility] | | National Kidney Disease Education [...] | + + + + + | [facility] | [address] | [place] [address] | | | SERVICES, CORE | [address] | | | + + + + + MAGNESIUM, PLASMA (09/02/2017 11:36 PM PDT) + +-------+ + + + | Component | Value | Ref Range | Performed | Pathologist | | | | | At | Signature | + +-------+ + + + | MAGNESIUM,P | 1.8 | 1.6 - 2.6 mg/dL | [facility] [...] [facility] | [address] | [place] [address] | | | NATALEE WORTHINGTON | [address] | | | + + + + + OPERATION RECORD (09/02/2017 6:53 PM PDT) + + | Procedure Note | + + | Fidelina Shields MD - 09/02/2017 6:53 PM PDT Date of Service: 09/02/2017 | | Attending Surgeon: Fidelina Shields MD Naphthalene Still Operator(s): | | Ajay Garcia MD, resident. Preoperative [...] 09/02/2017 18:15:29DT: 09/02/2017 18:53:52Job #: | | [id number] to federal Medicare and Medicaid regulations I was present for | | the entire procedure.Fidelina Shields MDAssistant ProfessorDepartment of SurgeryOffice: | | [phone]: [id number] has been electronically signed by Fidelina Shields MD, | | 09/03/2017 at 9:11 AM. | | | | | |Fidelina Shields MD | |Medical Coding Technician | |Department of Surgery | |Office: [phone] | |Pager: [phone] | | | |This has been electronically [...] [facility] | [address] | [place] [address] | | | SERVICES, CORE | PARK [...] | + + + + + | [facility] | [address] | [place] [address] | | | SERVICES, CORE | [address] [...] detected | [facility] - | | | [place] | + + + + + + + + | Performing | Address | City/State/Zipcode | Phone Number | | Organization | | | | + + + + + | [facility] - | [address] | [place] [address] | | | [place] | | | | + + + [...] | + + + + + | [facility] | [address] [facility] | [place] [address] | | | SERVICES, CORE | [address] [...] | | | LABORATORY | | | [facility] | | | SERVICES, | | | [...] | + + + + + | [facility] | [address] | [place] [address] | | | SERVICES, CORE | [address] [...] Note | + + | Service Account, Minglebox Res In Interface - 09/02/2017 4:25 PM [...] | | | contact: INGRID Garcia, Surgery [phone] Pursuant | | | to federal Medicare and Medicaid regulations I was present for the | | | entire procedure. Fidelina Shields MD Medical Coding Technician | | | Department of Surgery Office: [phone] Pager: [phone] This has | | | been electronically [...] [facility] | [address] | [place] [address] | | | SERVICES, CORE | [address] [...] | + + + + + | [facility] | [address] | [place] [address] | | | SERVICES, NATALEE | [address] | | | + + + + + OPERATION RECORD (09/02/2017 6:51 AM PDT) + ---+ | Procedure Note | + ---+ | Fidelina Shields MD - 09/02/2017 6:51 AM PDT Date of Service: 09/01/2017 | | Attending Surgeon: Fidelina Shields MD Naphthalene Still Operator(s): Haim Peralta MD. | | Ajay Garcia [...] 09/02/2017 06:17:53DT: 09/02/2017 | | 06:51:37Job #: [id number] to federal Medicare and Medicaid regulations I | | was present for the entire procedure.Fidelina Shields MDAssistant ProfessorDepartment of | | SurgeryOffice: [phone]: [id number] has been electronically signed by Fidelina Snyder | | MD Cornelius, 09/02/2017 at 10:40 AM. | | | | | |Pursuant to federal Medicare and Medicaid regulations I was present for the entire procedur e. | | | | | | | |Fidelina Shields MD | |Medical Coding Technician | |Department of Surgery | |Office: [phone] | |Pager: [phone] | | | |This has been electronically [...] | + + + + + | [facility] | [address] | [place] [address] | | | SERVICES, CORE | PARK [...] [facility] | [address] | [place] [address] | | | SERVICES, CORE | PARK [...] + + + + | PRODUCT | [id number] | | [facility] | | | UNIT [...] + + + + | EXPIRATION | [id number] | | [facility] | | | DATE [...] + + + + | BLOOD | [id number] | | [facility] | | | PRODUCT [...] | + + + + + | [facility] | [address] | [place] [address] | | | SERVICES, | [address] [...] Service Adal, Radiant Res In Interface - 09/02/2017 11:22 [...] [facility] | [address] | [place] [address] | | | SERVICES, CORE | PARK [...] | | | LABORATORY | | | [facility] | | | SERVICES, | | | [...] the MDRD equation recommended by the | [facility] | | National Kidney Disease Education [...] | + + + + + | [facility] | [address] [facility] | [place] [address] | | | SERVICES, CORE | PARK [...] [facility] | [address] | [place] [address] | | | ELIN, NATALEE | [address] [...] | | | | INFORMATION: | | [facility] | | | | QuantiFER[employer]-TB [employer] | [...] (http://www.cdc.gov/mmwr | | | | | | /preview/mmwrhtml/[email or web address] | | | | | | [email or web address].htm), [...] [facility] - | | | | by [employer], | | AIRPORT - | | | | | | [place] | | | | [address] | | | | | | [facility] [facility] [place] | | | | | | [address] | | | | | | | | | | | | [email or web address] | | | | | | MD Arcadio - Lab. | | | | | | Director [...] + | [facility] - | [address] | [place] [address] | | | [place] | | | [...] [facility] | [address] | [place] [address] | | | SERVICES, CORE | PARK [...] | + + + + + | [facility] | [address] | [place] [address] | | | SERVICES, CORE | [address] [...] Note | + + | Service Account, [email or web address] Res In Interface - 09/02/2017 10:34 AM [...] | + + + + + | [facility] | [address] | [place] [address] | | | ELIN, NATALEE | [address] [...] | + + + + + | [facility] | [address] | [place] [address] | | | SERVICES, CORE | [address] [...] + + + + | PRODUCT | [id number] | | [facility] | | | UNIT [...] + + + + | EXPIRATION | [id number] | | [facility] | | | DATE [...] + + + + | BLOOD | [id number] | | [facility] | | | PRODUCT [...] [facility] | [address] | [place] [address] | | | SERVICES, | [address] [...] | + + + + + | [facility] | [address] | [place] [address] | | | SERVICES, CORE | [address] [...] | + + + + + | [facility] | [address] | [place] [address] | | | SERVICES, CORE | PARK [...] [facility] | [address] | [place] [address] | | | SERVICES, CORE | PARK [...] | | | LABORATORY | | | [facility] | | | SERVICES, | | | [...] | + + + + + | [facility] | [address] | [place] [address] | | | SERVICES, CORE | [address] [...] | + + + + + | [facility] | [address] [facility] | [place] [address] | | | SERVICES, CORE | [address] [...] | + + + + + | [facility] | [address] | [place] [address] | | | SERVICES, CORE | [address] | | | + + + + + IR EMBOLIZATION OTHER (09/01/2017 2:06 PM PDT) + + | Specimen | + + | | + + + + + | Narrative | Performed At | + + + | Procedure: Selective visceral arteriography. IR Attending: | [facility] | | Marquez Hubbard MD, PhD IR [...] micropuncture access set was exchanged for a Kaeuferportal wire. Under | | | fluoroscopic guidance, a 5 Fr flush catheter was used to evaluate the | | | distal abdominal aorta and pelvic vasculature. A wire and catheter | | | were then used to select the left common and internal iliac arteries | | | from the right INJECTION MOLDING ENGINEER approach. DSA was performed from the left [...] micropuncture access set was exchanged for a Kaeuferportal wire. Under fluoroscopic guidance, | | a 5 Fr flush catheter was used to evaluate the distal abdominal aorta and pelvic | | vasculature. A wire and catheter were then used to select the left common and internal | | iliac arteries from the right INJECTION MOLDING ENGINEER approach. DSA was performed from the left [...] micropuncture access set was exchanged for a Kaeuferportal wire. Under fluoroscopic guidance, a 5 Fr flush catheter was used | |to evaluate the distal abdominal aorta and pelvic vasculature. A wire and catheter were th en used to select the left common and internal iliac arteries from the right INJECTION MOLDING ENGINEER approach. DSA was performed from the left [...] [facility] | [address] | [place], [place] | | | GLORIA GENAO OF GM | [address] | [address] | | | TESTS | | | | + + + + + EXPLORATORY LAPAROTOMY (09/01/2017 12:31 PM PDT) + + + | Narrative | Performed At | + + + | Fidelina Shields MD 09/01/2017 12:42 PM BRIEF OPERATIVE NOTE: | | | Date: 09/01/2017 Author: Fidelina Shields MD | | | Attending Physician: Fidelina Shields MD Naphthalene Still Operator(s): Haim Peralta | | | , Vicente Garcia MD, [facility] MS3 Prior to the | | [...] case. | | | Fidelina Shields MD Medical Coding Technician Division of Trauma, | | | Critical Care and Acute Care Surgery Office: [phone] Pager: | | | [phone] | | + + + ABG-FULL ABL, [...] [facility] | [address] | [place], [place] | | | [facility] | [address] | [address] | | | TESTS | | | [...] | + + + + + | [facility] | [address] | [place] [address] | | | SERVICES, CORE | [address] | | | + + + + + ABDwight-KENRICK ABL, POC (09/01/2017 11:04 AM PDT) + + + + + + | Component | Value | Ref Range | Performed | Pathologist | | | | | At | Signature | + + + + + + | PH | 7.35 (L) | 7.37 - 7.44 | [facility] - | | | ARTERIAL, | | | [facility] | | | POC | | | [facility] | | | | | | OF CARE | | | | | | TESTS | | + + + + + + | PO2 | 126 (H) | 72 - 104 mmHg | [facility] - | | | ARTERIAL, | [...] [facility] | [address] | [place], [place] | | | [facility] | [address] | [address] | | | TESTS | | | [...] + + + + | PRODUCT | [id number] | | [facility] | | | UNIT [...] + + + + | EXPIRATION | [id number] | | [facility] | | | DATE [...] + + + + | BLOOD | [id number] | | [facility] | | | PRODUCT [...] [facility] | [address] | [place] [address] | | | SERVICES, | [address] [...] + + + + | PRODUCT | [id number] | | [facility] | | | UNIT [...] + + + + | EXPIRATION | [id number] | | [facility] | | | DATE [...] + + + + | BLOOD | [id number] | | [facility] | | | PRODUCT [...] [facility] | [address] | [place] [address] | | | SERVICES, | [address] [...] + + + + | PRODUCT | [id number] | | [facility] | | | UNIT [...] + + + + | EXPIRATION | [id number] | | [facility] | | | DATE [...] + + + + | BLOOD | [id number] | | [facility] | | | PRODUCT [...] [facility] | [address] | [place] [address] | | | SERVICES, | [address] [...] + + + + | PRODUCT | [id number] | | [facility] | | | UNIT [...] + + + + | EXPIRATION | [id number] | | [facility] | | | DATE [...] + + + + | BLOOD | [id number] | | [facility] | | | PRODUCT [...] [facility] | [address] | [place] [address] | | | SERVICES, | [address] [...] + + + + | PRODUCT | [id number] | | [facility] | | | UNIT [...] + + + + | EXPIRATION | [id number] | | [facility] | | | DATE [...] + + + + | BLOOD | [id number] | | [facility] | | | PRODUCT [...] [facility] | [address] | [place] [address] | | | SERVICES, | [address] [...] + + + + | PRODUCT | [id number] | | [facility] | | | UNIT [...] + + + + | EXPIRATION | [id number] | | [facility] | | | DATE [...] + + + + | BLOOD | [id number] | | [facility] | | | PRODUCT [...] | + + + + + | [facility] | [address] | [place] [address] | | | SERVICES, | [address] [...] + + + + | PRODUCT | [id number] | | [facility] | | | UNIT [...] + + + + | EXPIRATION | [id number] | | [facility] | | | DATE [...] + + + + | BLOOD | [id number] | | [facility] | | | PRODUCT [...] | + + + + + | [facility] | [address] | [place] [address] | | | SERVICES, | [address] [...] + + + + | PRODUCT | [id number] | | [facility] | | | UNIT [...] + + + + | EXPIRATION | [id number] | | [facility] | | | DATE [...] + + + + | BLOOD | [id number] | | [facility] | | | PRODUCT [...] | + + + + + | [facility] | [address] | [place] [address] | | | SERVICES, | [address] [...] + + + + | PRODUCT | [id number] | | [facility] | | | UNIT [...] + + + + | EXPIRATION | [id number] | | [facility] | | | DATE [...] + + + + | BLOOD | [id number] | | [facility] | | | PRODUCT [...] [facility] | [address] | [place] [address] | | | SERVICES, | [address] [...] + + + + | PRODUCT | [id number] | | [facility] | | | UNIT [...] + + + + | EXPIRATION | [id number] | | [facility] | | | DATE [...] + + + + | BLOOD | [id number] | | [facility] | | | PRODUCT [...] [facility] | [address] | [place] [address] | | | SERVICES, | [address] [...] + + + + | PRODUCT | [id number] | | [facility] | | | UNIT [...] + + + + | EXPIRATION | [id number] | | [facility] | | | DATE [...] + + + + | BLOOD | [id number] | | [facility] | | | PRODUCT [...] [facility] | [address] | [place] [address] | | | SERVICES, | [address] [...] + + + + | PRODUCT | [id number] | | [facility] | | | UNIT [...] + + + + | EXPIRATION | [id number] | | [facility] | | | DATE [...] + + + + | BLOOD | [id number] | | [facility] | | | PRODUCT [...] [facility] | [address] | [place] [address] | | | SERVICES, | [address] [...] + + + + | PRODUCT | [id number] | | [facility] | | | UNIT [...] + + + + | EXPIRATION | [id number] | | [facility] | | | DATE [...] + + + + | BLOOD | [id number] | | [facility] | | | PRODUCT [...] [facility] | [address] | [place] [address] | | | SERVICES, | [address] [...] + + + + | PRODUCT | [id number] | | [facility] | | | UNIT [...] + + + + | EXPIRATION | [id number] | | [facility] | | | DATE [...] + + + + | BLOOD | [id number] | | [facility] | | | PRODUCT [...] [facility] | [address] | [place] [address] | | | SERVICES, | [address] [...] + + + + | PRODUCT | [id number] | | [facility] | | | UNIT [...] + + + + | EXPIRATION | [id number] | | [facility] | | | DATE [...] + + + + | BLOOD | [id number] | | [facility] | | | PRODUCT [...] | + + + + + | [facility] | [address] | [place] [address] | | | SERVICES, | [address] [...] + + + + | PRODUCT | [id number] | | [facility] | | | UNIT [...] + + + + | EXPIRATION | [id number] | | [facility] | | | DATE [...] + + + + | BLOOD | [id number] | | [facility] | | | PRODUCT [...] | + + + + + | [facility] | [address] | [place] [address] | | | SERVICES, | [address] [...] + + + + | PRODUCT | [id number] | | [facility] | | | UNIT [...] + + + + | EXPIRATION | [id number] | | [facility] | | | DATE [...] + + + + | BLOOD | [id number] | | [facility] | | | PRODUCT [...] | + + + + + | [facility] | [address] | [place] [address] | | | SERVICES, | [address] [...] + + + + | PRODUCT | [id number] | | [facility] | | | UNIT [...] + + + + | EXPIRATION | [id number] | | [facility] | | | DATE [...] + + + + | BLOOD | [id number] | | [facility] | | | PRODUCT [...] | + + + + + | [facility] | [address] | [place] [address] | | | SERVICES, | [address] [...] + + + + | PRODUCT | [id number] | | [facility] | | | UNIT [...] + + + + | EXPIRATION | [id number] | | [facility] | | | DATE [...] + + + + | BLOOD | [id number] | | [facility] | | | PRODUCT [...] | + + + + + | [facility] | [address] | [place] [address] | | | SERVICES, | [address] [...] + + + + | PRODUCT | [id number] | | [facility] | | | UNIT [...] + + + + | EXPIRATION | [id number] | | [facility] | | | DATE [...] + + + + | BLOOD | [id number] | | [facility] | | | PRODUCT [...] | + + + + + | [facility] | [address] | [place] [address] | | | SERVICES, | [address] [...] + + + + | PRODUCT | [id number] | | [facility] | | | UNIT [...] + + + + | EXPIRATION | [id number] | | [facility] | | | DATE [...] + + + + | BLOOD | [id number] | | [facility] | | | PRODUCT [...] [facility] | [address] | [place] [address] | | | SERVICES, | [address] [...] + + + + | PRODUCT | [id number] | | [facility] | | | UNIT [...] + + + + | EXPIRATION | [id number] | | [facility] | | | DATE [...] + + + + | BLOOD | [id number] | | [facility] | | | PRODUCT [...] [facility] | [address] | [place] [address] | | | SERVICES, | [address] [...] + + + + | PRODUCT | [id number] | | [facility] | | | UNIT [...] + + + + | EXPIRATION | [id number] | | [facility] | | | DATE [...] + + + + | BLOOD | [id number] | | [facility] | | | PRODUCT [...] [facility] | [address] | [place] [address] | | | SERVICES, | [address] [...] + + + + | PRODUCT | [id number] | | [facility] | | | UNIT [...] + + + + | EXPIRATION | [id number] | | [facility] | | | DATE [...] + + + + | BLOOD | [id number] | | [facility] | | | PRODUCT [...] [facility] | [address] | [place] [address] | | | SERVICES, | [address] [...] + + + + | PRODUCT | [id number] | | [facility] | | | UNIT [...] + + + + | EXPIRATION | [id number] | | [facility] | | | DATE [...] + + + + | BLOOD | [id number] | | [facility] | | | PRODUCT [...] [facility] | [address] | [place] [address] | | | SERVICES, | [address] [...] + + + + | PRODUCT | [id number] | | [facility] | | | UNIT [...] + + + + | EXPIRATION | [id number] | | [facility] | | | DATE [...] + + + + | BLOOD | [id number] | | [facility] | | | PRODUCT [...] | + + + + + | [facility] | [address] | [place] [address] | | | SERVICES, | [address] [...] [facility] | [address] | [place] [address] | | | SERVICES, CORE | [address]ARK [...] | | | LABORATORY | | | [facility] | | | SERVICES, | | | [...] the MDRD equation recommended by the | [facility] | | National Kidney Disease Education [...] | + + + + + | [facility] | [address] [facility] | [place] [address] | | | SERVICES, CORE | [address] [...] [facility] | [address] | [place] [address] | | | NATALEE WORTHINGTON | [address] [...] [facility] | [address] | [place], [place] | | | GLORIA GENAO OF [facility] | [address] | [address] | | | TESTS | | | [...] | | + +---------+ + + | [facility] | | | | | [...] + + + + | PRODUCT | [id number] | | [facility] | | | UNIT [...] + + + + | EXPIRATION | [id number] | | [facility] | | | DATE [...] + + + + | BLOOD | [id number] | | [facility] | | | PRODUCT [...] [facility] | [address] | [place] [address] | | | SERVICES, | [address] [...] + + + + | PRODUCT | [id number] | | [facility] | | | UNIT [...] + + + + | EXPIRATION | [id number] | | [facility] | | | DATE [...] + + + + | BLOOD | [id number] | | [facility] | | | PRODUCT [...] [facility] | [address] | [place] [address] | | | SERVICES, | [address] [...] + + + + | PRODUCT | [id number] | | [facility] | | | UNIT [...] + + + + | EXPIRATION | [id number] | | [facility] | | | DATE [...] + + + + | BLOOD | [id number] | | [facility] | | | PRODUCT [...] | + + + + + | [facility] | [address] | [place] [address] | | | SERVICES, | [address] [...] + + + + | PRODUCT | [id number] | | [facility] | | | UNIT [...] + + + + | EXPIRATION | [id number] | | [facility] | | | DATE [...] + + + + | BLOOD | [id number] | | [facility] | | | PRODUCT [...] | + + + + + | [facility] | [address] | [place] [address] | | | SERVICES, | [address] [...] + + + + | PRODUCT | [id number] | | [facility] | | | UNIT [...] + + + + | EXPIRATION | [id number] | | [facility] | | | DATE [...] + + + + | BLOOD | [id number] | | [facility] | | | PRODUCT [...] | + + + + + | [facility] | [address] | [place] [address] | | | SERVICES, | [address] [...] + + + + | PRODUCT | [id number] | | [facility] | | | UNIT [...] + + + + | EXPIRATION | [id number] | | [facility] | | | DATE [...] + + + + | BLOOD | [id number] | | [facility] | | | PRODUCT [...] | + + + + + | [facility] | [address] | [place] [address] | | | SERVICES, | [address] [...] + + + + | PRODUCT | [id number] | | [facility] | | | UNIT [...] + + + + | EXPIRATION | [id number] | | [facility] | | | DATE [...] + + + + | BLOOD | [id number] | | [facility] | | | PRODUCT [...] | + + + + + | [facility] | [address] | [place] [address] | | | SERVICES, | [address] [...] + + + + | PRODUCT | [id number] | | [facility] | | | UNIT [...] + + + + | EXPIRATION | [id number] | | [facility] | | | DATE [...] + + + + | BLOOD | [id number] | | [facility] | | | PRODUCT [...] + + | [facility] | [address] [facility] | [place] [address] | | | SERVICES, | [address] [...] + + + + | PRODUCT | [id number] | | [facility] | | | UNIT [...] + + + + | EXPIRATION | [id number] | | [facility] | | | DATE [...] + + + + | BLOOD | [id number] | | [facility] | | | PRODUCT [...] LABORATORY | [address] | [place] [address] | | | SERVICES, | [address] [...] [facility] | [address] | [place] [address] | | | SERVICES, CORE | [address] [...] | + + + + + | [facility] | [address] | [place] [address] | | | SERVICES, CORE | [address] [...] with | | | trauma ICU internal control analyst by Dr. Yang at 4:38 AM. I [...] ligament is injured.Discussed with trauma ICU internal control analyst | | by Dr. Yang at 4:38 AM.I have personally reviewed the images and, if necessary, | | edited the report. I agree with the report as now presented. | |3. Extensive soft tissue edema extending into the cervical and upper thoracic interspinous space, suggestive of interspinous ligament is injured. | | | |Discussed with trauma ICU internal control analyst by Dr. Yang at 4:38 AM. | [...] | | | LABORATORY | | | [facility] | | | SERVICES, | | | [...] | + + + + + | [facility] | [address] | [place] [address] | | | NATALEE WORTHINGTON | [address] [...] + + | [facility] | [address] | [place] [address] | | | ELIN, NATALEE | PARK [...] [facility] | [address] | [place] [address] | | | SERVICES, CORE | [address] [...] | + + + + + | [facility] | [address] | [place] [address] | | | ELIN, NATALEE | [address] [...] pleural spaced was performed. A 32 size [place] chest tube was | | | placed [...] ventricles. Discussed with the trauma ICU internal control analyst at 12:12 AM by | | | Dr. Yang. I have personally reviewed the images and, if | | | necessary, edited the report. I agree with the report as now | | | presented. | | + + + + + | Procedure Note | + + | Service Account, Tamecco In Interface - 09/01/2017 10:14 AM PDT [...] with | | the trauma ICU internal control analyst at 12:[address] Yang.I have [...] | |Discussed with the trauma ICU internal control analyst at 12:[address] Yang. | [...] + + | Performing | Address | City/State/[facility] | Phone Number | | Organization | | | | + + + + + | [facility] | [address] | [place], [place] | | | [place] [facility] | [address] | [address] | | | TESTS | | | [...] | + + + + + | [facility] | [address] | [place] [address] | | | SERVICES, CORE | [address] [...] | + + + + + | [facility] | [address] [facility] | [place] [address] | | | SERVICES, CORE | [address] [...] Note | + + | Service Account, Tamecco In Interface - 09/01/2017 1:40 PM PDT [...] Note | + + | Service Account, Minglebox Res In Interface - 09/01/2017 1:50 PM [...] [facility] | [address] | [place] [address] | | | SERVICES, CORE | [address] | | | + + + + + X-RAY PORTABLE CHEST 1 VIEW (08/31/2017 7:07 PM PDT) + + | Specimen | + + | | + + + + + | Narrative | Performed At | + + + | STUDY: SD CHEST 1 VIEW HISTORY: Trauma COMPARISON: CT CAP | [facility] | | 08/31/2017 FINDINGS: Endotracheal tube [...] Note | + + | Service Account, Minglebox Res In Interface - 09/01/2017 1:44 PM [...] [facility] | [address] | [place] [address] | | | ELIN, NATALEE | [address] [...] Note | + + | Service Account, Minglebox Res In Interface - 09/01/2017 10:12 AM [...] rib, nondisplaced-Left | | 1st rib fracture, imeqwydvtbrz-Spq-zzqhxlfdt left lateral 8th rib fracture-T12 fracture | [...] [facility] | [address] | [place] [address] | | | SERVICES, | [address] [...] [facility] | [address] | [place] [address] | | | SERVICES, | [address] [...] | + + + + + | [facility] | [address] | [place] [address] | | | ELIN | [address] | | | [...] [facility] | [address] | [place], [place] | | | [facility] [place] | [address] | [address] | | | TESTS | | | [...] [facility] | [address] | [place], [place] | | | GLORIA GENAO OF [facility] | [facility] | [address] | | | TESTS | | | [...] (H) | 70 - 99 mg/dL | [facility] - | | | POC | | [...] 0.9 | 0.7 - 1.3 mg/dL | [facility] - | | | POC | | [...] [facility] | [address] | [place], [place] | | | GLORIA GENAO OF CARE | [facility] | [address] | | | TESTS | | | [...] [facility] | [address] | [place], [place] | | | [facility] | [address] | [address] | | | TESTS | | | [...] + + + + | PRODUCT | [id number] | | [facility] | | | UNIT [...] + + + + | EXPIRATION | [id number] | | [facility] | | | DATE [...] + + + + | BLOOD | [id number] | | [facility] | | | PRODUCT [...] [facility] | [address] | [place] [address] | | | SERVICES, | [address] [...] + + + + | PRODUCT | [id number] | | [facility] | | | UNIT [...] + + + + | EXPIRATION | [id number] | | [facility] | | | DATE [...] + + + + | BLOOD | [id number] | | [facility] | | | PRODUCT [...] [facility] | [address] | [place] [address] | | | SERVICES, | [address] [...] + + + + | PRODUCT | [id number] | | [facility] | | | UNIT [...] + + + + | EXPIRATION | [id number] | | [facility] | | | DATE [...] + + + + | BLOOD | [id number] | | [facility] | | | PRODUCT [...] [facility] | [address] | [place] [address] | | | SERVICES, | [address] [...] + + + + | PRODUCT | [id number] | | [facility] | | | UNIT [...] + + + + | EXPIRATION | [id number] | | [facility] | | | DATE [...] + + + + | BLOOD | [id number] | | [facility] | | | PRODUCT [...] [facility] | [address] | [place] [address] | | | SERVICES, | [address] [...] + + + + | PRODUCT | [id number] | | [facility] | | | UNIT [...] + + + + | EXPIRATION | [id number] | | [facility] | | | DATE [...] + + + + | BLOOD | [id number] | | [facility] | | | PRODUCT [...] [facility] | [address] | [place] [address] | | | SERVICES, | [address] [...] + + + + | PRODUCT | [id number] | | [facility] | | | UNIT [...] + + + + | EXPIRATION | [id number] | | [facility] | | | DATE [...] + + + + | BLOOD | [id number] | | [facility] | | | PRODUCT [...] [facility] | [address] | [place] [address] | | | SERVICES, | [address] [...] + + + + | PRODUCT | [id number] | | [facility] | | | UNIT [...] + + + + | EXPIRATION | [id number] | | [facility] | | | DATE [...] + + + + | BLOOD | [id number] | | [facility] | | | PRODUCT [...] [facility] | [address] | [place] [address] | | | SERVICES, | [address] [...] + + + + | PRODUCT | [id number] | | [facility] | | | UNIT [...] + + + + | EXPIRATION | [id number] | | [facility] | | | DATE [...] + + + + | BLOOD | [id number] | | [facility] | | | PRODUCT [...] | + + + + + | [facility] | [address] [facility] | [place] [address] | | | SERVICES, | [address] [...] [facility] | [address] | [place] [address] | | | SERVICES, CORE | PARK [...] | | | LABORATORY | | | [facility] | | | SERVICES, | | | [...] the MDRD equation recommended by the | [facility] | | National Kidney Disease Education [...] | + + + + + | [facility] | [address] [facility] | [place] [address] | | | NATALEE WORTHINGTON | [address] [...] | + + + + + | [facility] | [address] [facility] | [place] [address] | | | SERVICES, CORE | [address] [...] [facility] | [address] | [place] [address] | | | NATALEE WORTHINGTON | [address] [...] [facility] | [address] | [place] [address] | | | SERVICES, CORE | P[address] [...] [facility] | [address] | [place] [address] | | | SERVICES, NATALEE | [address] [...]
--- OUTSIDE RECORDS SUMMARY | ~2019-11-16 | XMS | Encounter Summary ---
Demographics + + + | Address | [address] | | | [place] [address] | + + + | Home Phone | | + + + | Preferred Language | Unknown | + + + | Marital Status | Single | + + + | Shinto Affiliation | PEN | + + + | Race | or | + + + | Ethnic Group | Not or | + + + Author + + + | Author | [facility] | + + + | Organization | [facility] [employer] [facility] | + + + | Address | Unknown | + + + | Phone | Unavailable | + + + Support + + +---------+ + | Name | Relationship | Address | Phone | + + +---------+ + | Kaylie Baig | ECON | Unknown | | + + +---------+ + Care Team Providers + +------+ + | Care Torch Straightener And Heater Name | Role | Phone | + [...] | | | | Rd [facility] | | | | | | Hospital Admitting | | | | | | Desk Located on the | | | | | | 9th floor | | | | | | [place], [place] | | | | | | [address] | | | +--------+ + + + [...]
--- OUTSIDE RECORDS SUMMARY | ~2019-11-16 | XMS | Encounter Summary ---
Demographics + + + | Address | [address] | | | [place] [address] | + + + | Home Phone [...] + + | Author | [facility] | + + + | Organization | [facility] | + + + | Address | Unknown | + + + | Phone | Unavailable | + + + Support + + +---------+ + | Name | Relationship | Address | Phone | + + +---------+ + | Kaylie Baig | ECON | Unknown | | + + +---------+ + Care Team Providers + +------+ + | Care Talk Show Host Name | Role | Phone | + [...] | | | | | | Rd [facility] | | | | | | Hospital Admitting | | | | | | Desk Located on the | | | | | | 9th floor | | | | | | [place], [place] | | | | | | [address] | | | +--------+ + + + [...]
--- OUTSIDE RECORDS SUMMARY | ~2019-11-16 | XMS | Encounter Summary ---
Demographics + + + | Address | [address] | | | [place] [address] | + + + | Home Phone [...] Author + + + | Author | [facility] | + + + | Organization | [facility] [employer] [facility] | + + + | Address | Unknown | + + + | Phone | Unavailable | + + + Support + + +---------+ + | Name | Relationship | Address | Phone | + + +---------+ + | Kaylie Baig | ECON | Unknown | | + + +---------+ + Care Team Providers + +------+ + | Care Studio Manager Name | Role | Phone | [...] | 2018 | Pass | Services at [facility] | | | | | | [address] | | | | | | [place]ola [place] | | | | | | [facility], [address] [place] [address] | | | | | | [place], [place] | | | | | | [address] | | | | | | [phone] | | | +--------+ + + + [...]
--- OUTSIDE RECORDS SUMMARY | ~2019-11-16 | XMS | Encounter Summary ---
Demographics + + + | Address | [address] | | | [place] [address] | + + + | Home Phone [...] Author + + + | Author | [facility] [facility] | + + + | Organization | [facility] [employer] [facility] | + + + | Address | Unknown | + + + | Phone | Unavailable | + + + Support + + +---------+ + | Name | Relationship | Address | Phone | + + +---------+ + | Kaylie Baig | ECON | Unknown | | + + +---------+ + Care Team Providers + +------+ + | Care Outside Operator Name | Role | Phone | [...] CENTER | | | | | | [address] | | | | | | [place] | | | | | | [facility], [address] [place] [address] | | | | | | [place], [place] | | | | | | [address] | | | | | | [phone] | | | +--------+ + + + [...]
--- OUTSIDE RECORDS SUMMARY | ~2019-11-16 | XMS | Encounter Summary ---
Demographics + + + | Address | [address] | | | [place] [address] | + + + | Home Phone [...] Author + + + | Author | [facility] [employer] [facility] | + + + | Organization | [facility] [employer] [facility] [...] Team Providers + +------+ + | Care Final Inspector Truck Trailer Name | Role | Phone | + [...] floor | | | | | | [place], [place] | | | | | | [address] | | | +--------+ + + + [...]
--- OUTSIDE RECORDS SUMMARY | ~2019-11-16 | XMS | Encounter Summary ---
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 to [facility] 08/31/17intubated without history. Physical exam reveals L si ded weakness arm more than leg. CTH revealed prior large crani with synthetic cranioplasty a nd significant encephalomalacia with extraaxial collection with layering acute blood product s. CT spine shows multiple fractures with most concerning fracture at C7 lamina with canal i ntrusion. Patient being managed in C collar and HEALTHCARE SALES REPRESENTATIVE. -Developed drainage from previous crani site on 09/23 and concern for possible neuro exam ch sonny. Repeat imaging was stable. Wound sutured at bedside, but now with recurrent wound disc harge. - proceed to OR today for revision - AEDs per primary team or Neurology Sami Maldonado MD Neurosurgery, PGY-2 On-call resident pager [phone] 7:33 AM 10/10/2017 Dallin Deshpande MD - [...] agent? No Dallin Bourgeois MD Neurosurgery PGY1 [id number] rVenita enrique PA-C - 10/09/2017 12:57 PM [...] - patient unable to come out of HEALTHCARE SALES REPRESENTATIVE for now - Will likely need for [...] previous cranioplasty site. Venita Pruitt PA-C [place] [phone] [facility] [address] [place] [facility] [phone] Associated attestation - Chaz Munoz MD - 10/09/2017 3:04 PM PDTI saw and examined th e patient today with Venita Pruitt PA-C, and agree with the assessement and plan as outlined in her note. Plan takeback with NSG, we will place Gabriel-oconnor feeding tube at that time. Chaz Munoz MD, FACS Kettle Loader, Trauma, Critical Care and Acute Care Surgery [...] - patient unable to come out of HEALTHCARE SALES REPRESENTATIVE for now - Will likely need for [...] by patient, but wound remains cl zeferino/dry/intact. De Kalb removed 09/17. #Left hemothorax Chest tube placed [...] [place] [phone] [facility] [place] [address] [address] [phone] Associated attestation - Chaz Munoz MD - 10/08/2017 12:16 PM PDTI saw and examined th e patient today with KESHAWN Martin, and agree with the assessement and plan a s outlined in her note. No acute events. Seems to be slowly improving from MS. Appreciate ps ychiatry recs. Chaz Munoz MD, FACS Kettle Loader, Trauma, Critical Care and Acute Care Surgery [...] - patient unable to come out fo HEALTHCARE SALES REPRESENTATIVE for now - Will likely need for [...] by patient, but wound remains cl zeferino/dry/intact. De Kalb removed 09/17. #Left hemothorax Chest tube placed [...] [place] [phone] [facility] [place] [address] [address] [phone] Associated attestation - Chaz Munoz MD - 10/07/2017 11:15 AM PDTI saw and examined th e patient today with KESHAWN Martin, and agree with the assessement and plan a s outlined in her note. Will consider changing to bolus TF. Plan Gabriel-oconnor tube next week. Chaz Munoz MD, FACS Kettle Loader, Trauma, Critical Care and Acute Care Surgery [...] p atient unable to come out fo HEALTHCARE SALES REPRESENTATIVE for now Resolved or chronic issues/Plan: #Previous [...] by patient, but wound remains duke n/dry/intact. De Kalb removed 09/17. #Left hemothorax Chest tube placed [...] issues, including restraints. Venita Pruitt PA-[place] [phone] [facility] [address] [place] [address] Associated attestation - Em Cunningham MD - 10/17/2017 10:13 AM PDTI was present and rou nded with the Advanced Practice Provider today . I interviewed and examined the patient. I reviewed the history, as documented today. I agree with the ASHLEY assessment and plan. TBI has remained stable. On lovenox. Will continue haldol per psych.. EM CUNNINGHAM MD [facility] [address] [place] [address] Venita Pruitt PA-C - 10/05/2017 8:38 AM [...] p atient unable to come out fo HEALTHCARE SALES REPRESENTATIVE for now Resolved or chronic issues/Plan: #Previous [...] by patient, but wound remains duke n/dry/intact. De Kalb removed 09/17. #Left hemothorax Chest tube placed [...] issues, including restraints. Venita Pruitt PA-C [place] [phone] [facility] [address] [place] [phone] Associated attestation - Shlomo Rosenthal MD - 10/06/2017 7:28 AM PDTFormatting of this note m ight be different from the original. I saw and examined Berlni Temple ([id number]) with the TRAUMA team on 10/05/2017. I [...] and incen tive spirometry for pulmonary toliet. extrusion die repair manager for disposition planning and placement. Shlomo Rosenthal MD Mds Nurse Division of Trauma and Critical Care Venita [...] (baseline from previous TBI ) Neck: in Lyons collar Respiratory: CTA b.l CV: RRR GI: [...] p atient unable to come out fo HEALTHCARE SALES REPRESENTATIVE for now Resolved or chronic issues/Plan: #Previous [...] by patient, but wound remains duke n/dry/intact. De Kalb removed 09/17. #Left hemothorax Chest tube placed [...] issues, including restraints. Venita Pruitt PA-C [place] [phone] [facility] [address] [place] [phone] Associated attestation - Fidelina Shields MD - [...] and only enteral access. Fidelina Shields MD Kettle Loader Division of Trauma, Critical Care and Acute Care Surgery Office: [phone] Pager: [phone] Leonor Torres ACNP - 10/03/2017 3:13 PM [...] (baseline from previous TBI ) Neck: in Lyons collar Respiratory: CTA bilaterally, no distress CV: [...] p atient unable to come out fo HEALTHCARE SALES REPRESENTATIVE for now Resolved or chronic issues/Plan: Previous [...] by patient, but wound remains duke n/dry/intact. De Kalb removed 09/17. #Left hemothorax Chest tube placed [...] PDTAttending: I saw and examined Berlin Temple ([id number]) with CB Hair on morning rounds 10/03 and agree with the assessment and plan as outlined in this note and participated in the planning of care. Mental status is slightly better, remains sedated but he is interactive and at least somewh at oriented. Enteral nutrition advancing and, as approaches goal, will turn TPN off. Place ment remains a significant issue. Fidelina Shields MD Kettle Loader Division of Trauma, Critical Care and Acute Care Surgery Office: [phone] Pager: [phone] July Banegas PA-C - 10/03/2017 12:58 PM [...] the C-collar when in bed then the HEALTHCARE SALES REPRESENTATIVE when out of bed until 12/01/17. JULY BANEGAS PA-C [facility] [address] [place] [address] Associated attestation - Magdiel Stock MD - 10/04/2017 6:02 PM PDTI performed a history a nd physical examination of the patient and discussed the management with the advanced practi ce provider, July Banegas PA-C. I reviewed the advanced practice provider's note and agree w ith the plan of care as documented. Continue cervical collar and HEALTHCARE SALES REPRESENTATIVE for 3 months to ensure fracture healing and prevent development of post-fracture cervical kyphosis. Magdiel Stock MD Kettle Loader Department of Neurological Surgery [facility] [place] Sherine Sarmiento, AGACNP - 10/02/2017 12:54 PM [...] (baseline from previous TBI ) Neck: in Lyons collar Respiratory: CTA bilaterally, lungs symmetrical, equal chest wall rise, no retractions CV: RRR GI: non tender, soft, active BS, last BM 09/30 : Patient voiding without difficulty Extremities: no peripheral edema, wiggles toes and toes pink and well perfused Musculoskeletal: 5/5 petroleum engineering professor strength on right, 3/5 petroleum engineering professor strength on left FEN: on TPN, [...] AMS & delirium - numerous evaluations by CHAIRPERSON ANESTHESIOLOGY with trials of PO - now s/p [...] . - C-collar at all times, use HEALTHCARE SALES REPRESENTATIVE when OOB - Follow-up with Neurosurgery on 10/21 with repeat X-rays #Blunt abdominal trauma #Splenic laceration S/p laparotomies x2. Fascia closed 09/02 Wound vac removed by patient, but wound remains duke n/dry/intact. De Kalb removed 09/17. #Left hemothorax Chest tube placed [...] will decrease scheduled [place]dol[place] Pg [phone] Associated attestation - Fidelina Shields MD - 10/02/2017 4:40 PM PDTAttending: I saw and examined Berlin Temple ([id number]) with KESHAWN Alexander on mornin g rounds [...] drawn back to midline position. May need middle or intermediate school principal enteral access , but is ~4 weeks s/p damage control laparotomy and risk is higher now than it will be in 7- 14 days and if swallow is not improving then will place prior to DC Fidelina Shields MD Kettle Loader Division of Trauma, Critical Care and Acute Care Surgery Office: [phone] Pager: [phone] Sherine Sarmiento AGACNP - 10/01/2017 7:27 AM [...] (baseline from previous TBI ) Neck: in Lyons collar Respiratory: CTA bilaterally, lungs symmetrical, equal chest wall rise, no retractions CV: RRR GI: non tender, soft, active BS, last BM 09/30 : Patient voiding without difficulty Extremities: no peripheral edema, wiggles toes and toes pink and well perfused Musculoskeletal: 5/5 petroleum engineering professor strength on right, 3/5 petroleum engineering professor strength on left FEN: on TPN [...] AMS & delirium - numerous evaluations by CHAIRPERSON ANESTHESIOLOGY with trials of PO - now s/p modified barium swallow x2 which indicates aspiration - continue NPO - CHAIRPERSON ANESTHESIOLOGY reports that patient working on tongue strength [...] . - C-collar at all times, use HEALTHCARE SALES REPRESENTATIVE when OOB - Follow-up with Neurosurgery on [...] trauma team and sister. Sherine Sarmiento, [facility] [place]g [phone] Associated attestation - Fidelina Shields MD - 10/02/2017 4:40 PM PDTAttending: I saw and examined Berlin Temple ([id number]) with KESHAWN Alexander on mornin g rounds 10/01/17 and agree with the assessment and plan as outlined in this note and partic ipated in the planning of care. Will trial DHT placement today, CT head unchanged. Suspect somnolence is medication side ef fect and, if persistent, may need to wean antipsychotic doses. Fidelina Shields MD Kettle Loader Division of Trauma, Critical Care and Acute Care Surgery Office: [phone] Pager: [phone] Christian Kelley PA-C - 09/30/2017 12:21 PM [...] Fixed and dilated on left Neck: in Lyons collar Respiratory: CTA bilaterally, lungs symmetrical, equal chest wall rise, no retractions CV: RRR GI: non tender, soft, active BS, last BM 09/30 : Patient voiding without difficulty Extremities: no peripheral edema, wiggles toes and toes pink and well perfused Musculoskeletal: 5/5 petroleum engineering professor strength on right, 3/5 petroleum engineering professor strength on left FEN: on TPN [...] AMS & delirium - numerous evaluations by CHAIRPERSON ANESTHESIOLOGY with trials of PO - now s/p modified barium swallow x2 which indicates aspiration - continue NPO - CHAIRPERSON ANESTHESIOLOGY reports that patient working on tongue strength [...] . - C-collar at all times, use HEALTHCARE SALES REPRESENTATIVE when OOB - Follow-up with Neurosurgery on [...] PDTAttending: I saw and examined Berlin Temple ([id number]) with Christian Kelley PA-C on morning rounds 09/30 and agree with the assessment and plan as outlined in this note and participated in the planning of care. Mentally slower this morning, but non-focal. Received haldol overnight for sleep. Repeat head CT was unchanged so suspect etiology of slowed responsiveness is the antipsychotic dose . CHAIRPERSON ANESTHESIOLOGY believes that, once collar off, may be able to take PO more effectively and thus will hold off on surgical feeding access. TPN is a temporary solution and if patient remains kaye nable will trial DHT tomorrow. Working with psychiatry for medication recommendations. Fidelina Shields MD Kettle Loader Division of Trauma, Critical Care and Acute Care Surgery Office: [phone] Pager: [phone] July Banegas PA-C - 09/30/2017 8:23 AM PDTBrief Neurosurgery Wound Check: Wound is dry, without erythema, not fluctuant. No acute swelling. Nylon in place. Will plan to follow peripherally for wound checks and remove nylons on 10/09. JULY BANEGAS PA-C [facility] [address] [place] [address] Christian Shay PA-C - 09/29/2017 7:15 AM [...] and EOMs intact to exam Neck: in Lyons collar Respiratory: CTA bilaterally, lungs symmetrical, equal [...] AMS & delirium - numerous evaluations by CHAIRPERSON ANESTHESIOLOGY with trials of PO - now s/p [...] . - C-collar at all times, use HEALTHCARE SALES REPRESENTATIVE when OOB - Follow-up with Neurosurgery on [...] PDTAttending: I saw and examined Berlin Temple ([id number]) with Christian Kelley PA-C on morning rounds 09/29 and agree with the assessment and plan as outlined in this note and participated in the planning of care. Late entry for 09/29/17. Persistent alterations in conscious and dysphagia. Hopefully with ongoing speech therapy a nd when clear to take c-collar off, will improve ability to take PO. While TPN is not an opt imal middle or intermediate school principal strategy, would prefer not to place surgical feeding tube if possible given r elatively recent damage control laparotomy and high risk of Mr. Temple pulling it out. Have tried DHT several times and it seems to worsen delirium and he pulls it out frequently. Tit ration of haldol in conjunction with psychiatry. Fidelina Shields MD Kettle Loader Division of Trauma, Critical Care and Acute Care Surgery Office: [phone] Pager: [phone] Christian Kelley PA-C - 09/28/2017 1:01 PM [...] he said, who, ariel? And then the AUTOMATED PROCESS OPERATOR helped him make a call to [...] and EOMs intact to exam Neck: in Lyons collar Respiratory: CTA bilaterally, lungs symmetrical, equal [...] very agitated today. - EKG today with Dailey QTc calculated to be 428 - optimize [...] AMS & delirium - numerous evaluations by CHAIRPERSON ANESTHESIOLOGY with trials of PO - now s/p [...] . - C-collar at all times, use HEALTHCARE SALES REPRESENTATIVE when OOB - Follow-up with Neurosurgery on 10/21 with repeat X-rays #Blunt abdominal trauma #Splenic laceration S/p laparotomies x2. Fascia closed 09/02 Wound vac removed by patient, but wound remains duke n/dry/intact. De Kalb removed 09/17. #Left hemothorax Chest tube placed [...] communicate more toda ySelvin Munoz MD, FACS Kettle Loader, Trauma, Critical Care and Acute Care Surgery Chaz Munoz MD - 09/28/2017 10:13 AM PDTTrauma Staff Seen and examined this AM with team. I have concerns abotu behaviour, as he is consistently threatening RN and ancillary staff, even attempting swings. Behavior seems worse at night. I would favor increasing night time Haldol dose, and following EKGs. Chaz Munoz MD, FACS Kettle Loader, Trauma, Critical Care and Acute Care Surgery [...] Dallin Bourgeois MD Neurosurgery PGY1 | Pager #[phone] Christian Begum PA-C - 09/27/2017 7:31 AM [...] able to have a linear conversation briefly CHAIRPERSON ANESTHESIOLOGY requesting repeat barium swallow Current meds: I [...] incision healing , suture c/d/I Neck: in HEALTHCARE SALES REPRESENTATIVE Respiratory: unlabored on room air, lungs symmetrical, [...] AMS & delirium - numerous evaluations by CHAIRPERSON ANESTHESIOLOGY with trials of PO - now s/p [...] . - C-collar at all times, use HEALTHCARE SALES REPRESENTATIVE when OOB - Follow-up with Neurosurgery on 10/21 with repeat X-rays #Blunt abdominal trauma #Splenic laceration S/p laparotomies x2. Fascia closed 09/02 Wound vac removed by patient, but wound remains duke n/dry/intact. De Kalb removed 09/17. #Left hemothorax Chest tube placed [...] TPN for now. EM CUNNINGHAM MD [facility] [address] [place] [address] Christian Kelley PA-C - 09/26/2017 6:48 AM [...] posterior scalp crani incision c/d/I Neck: in Lyons collar Respiratory: unlabored on room air CV: [...] AMS & delirium - numerous evaluations by CHAIRPERSON ANESTHESIOLOGY with trials of PO - now s/p [...] . - C-collar at all times, use HEALTHCARE SALES REPRESENTATIVE when OOB - Follow-up with Neurosurgery on [...] NPO and TPN. EM CUNNINGHAM MD [facility] [address] [place] [address] Christian Kelley PA-C - 09/25/2017 7:49 AM [...] HEENT: EOMs intact to exam Neck: in HEALTHCARE SALES REPRESENTATIVE brace Respiratory: unlabored on room air CV: [...] AMS & delirium - numerous evaluations by CHAIRPERSON ANESTHESIOLOGY with trials of PO - now s/p [...] . - C-collar at all times, use HEALTHCARE SALES REPRESENTATIVE when OOB - Follow-up with Neurosurgery on 10/21 with repeat X-rays #Blunt abdominal trauma #Splenic laceration S/p laparotomies x2. Fascia closed 09/02 Wound vac removed by patient, but wound remains duke n/dry/intact. De Kalb removed 09/17. #Left hemothorax Chest tube placed [...] wnl. Continue TPN. EM CUNNINGHAM MD [facility] [address] [place] [address] Christian Kelley PA-C - 09/24/2017 11:07 AM [...] with agitation Having difficulty swallowing again - CHAIRPERSON ANESTHESIOLOGY to re-eval and obtain barium swallow Current [...] HEENT: EOMs intact to exam Neck: in HEALTHCARE SALES REPRESENTATIVE brace Respiratory: CTA bilaterally, lungs symmetrical, equal chest wall rise, no retractions CV: RRR GI: non distended, last BM 09/23 : good urine output Extremities: SCD's in place, no peripheral edema, wiggles toes and toes pink and well perfu sed Musculoskeletal: 5/5 strength in bilateral petroleum engineering professor (but with slightly weaker on left) [...] PRN seroquel dose QHS for insomnia/restlessness at [facility] - Haldol 5mg q12hr prn for severe [...] likely 2/2 AMS & delirium - Failed CHAIRPERSON ANESTHESIOLOGY eval 09/19 & 09/20, made NPO & dobhoff reinserted 09/21 but pulled overnight - Per CHAIRPERSON ANESTHESIOLOGY on 09/21, ok for therapeutic pureed with [...] . - C-collar at all times, use HEALTHCARE SALES REPRESENTATIVE when OOB - Follow-up with Neurosurgery on 10/21 with repeat X-rays #Blunt abdominal trauma #Splenic laceration S/p laparotomies x2. Fascia closed 09/02 Wound vac removed by patient, but wound remains duke n/dry/intact. De Kalb removed 09/17. #Left hemothorax Chest tube placed [...] abx for dehiscence. EM CUNNINGHAM MD [facility] [address] [place] [address] Ginette Campos PA-C - 09/24/2017 9:31 AM [...] Intake/Output Summary (Last 24 hours) at 09/24/17 0911 Last data filed at 09/24/17 0632 Gross per 24 hour Intake 1412.13 ml Output 2600 ml Net -1187.87 ml Exam: Sleeping, awakens to loud voice and stimulation. Pupils equal. EOMI. Face symmetric. Tongue midline. Sensation: LT sensation intact in all 4 extremities Unable to assess drift. Motor: Sales Representative [employer] Bicep Tricep Delt R 5 5 5 [...] questions or concerns. Ginette Campos PA-C [facility] [address] [address] [place] [id number] ELLGabriel Atkins AGACNP - 09/23/2017 6:32 AM [...] hiscence, draining minimal serosang fluid Neck: in HEALTHCARE SALES REPRESENTATIVE brace Respiratory: unlabored on room air CV: [...] PRN seroquel dose QHS for insomnia/restlessness at [facility] - Repeat ECG 09/22 with QTc WNL. [...] likely 2/2 AMS & delirium - Failed CHAIRPERSON ANESTHESIOLOGY eval 09/19 & 09/20, made NPO & dobhoff reinserted 09/21 but pulled overnight - Per CHAIRPERSON ANESTHESIOLOGY on 09/21, ok for therapeutic pureed with [...] . - C-collar at all times, use HEALTHCARE SALES REPRESENTATIVE when OOB - Follow-up with Neurosurgery on [...] & delir ium improves Sherine Sarmiento, [facility] Pg [phone] Dallin Deshpande MD - 09/22/2017 8:03 AM [...] Dallin Bourgeois MD Neurosurgery PGY1 | Pager #[phone] [facility] Sherine Madiha, [facility] - 09/22/2017 6:52 AM PDTFormatting of this [...] 24hr events: - Therapeutic purees initiated by CHAIRPERSON ANESTHESIOLOGY yesterday - Trickle feeds via Dobbhoff, pt pulled Dobbhoff yesterday evening- not replaced - REMODELER called around 2130 for new left facial [...] sluggish. Slight left facial droop Neck: in Lyons collar Respiratory: unlabored on room air CV: [...] PRN seroquel dose QHS for insomnia/restlessness at [facility]- - Repeat ECG 09/22 with Q Tc WNL. - Haldol 5mg q12hr prn for severe agitation #Substance abuse, concern for Alcohol withdrawal - CIWA discontinued 09/08, not scoring. - Thiamine & folate started 09/21 #Dysphagia, risk for aspiration #Protein calorie malnutirtion - likely 2/2 AMS & delirium - Failed CHAIRPERSON ANESTHESIOLOGY eval 09/19 & 09/20, made NPO & dobhoff reinserted 09/21 but pulled overnight - Per CHAIRPERSON ANESTHESIOLOGY on 09/21, ok for therapeutic pureed with [...] . - C-collar at all times, use HEALTHCARE SALES REPRESENTATIVE when OOB - Follow-up with Neurosurgery on 10/21 with repeat X-rays #Blunt abdominal trauma #Splenic laceration S/p laparotomies x2. Fascia closed 09/02 Wound vac removed by patient, but wound remains duke n/dry/intact. De Kalb removed 09/17. #Left hemothorax Chest tube placed [...] dysphagia & delirium improves Sherine Sarmiento, [facility] Pg [phone] Associated attestation - Shiva Nieto MD,MPH - 09/22/2017 9:39 PM PDTATTENDING PROGRES S NOTE I personally interviewed and examined the patient today with the trauma team and the nurse practitioner. I participated in the development of and agree with the assessment and plan a s outlined in ACNJohn Sramiento's note. Adding seroquel qHS for sleep hygiene. Shiva Nieto MD, MPH Trauma, Critical Care & Acute Care Surgery [facility] [phone] Sami Black - 09/21/2017 10:25 PM PDTBrief [...] in the morning. Plan: -neuro checks; page [phone] for any decline in neurological examination -pain control -Hard C collar at all times and place HEALTHCARE SALES REPRESENTATIVE prior to mobilizing OOB. Anticipated duration of Collar/HEALTHCARE SALES REPRESENTATIVE is 12 weeks -repeat CT head for any new decline in neurological exam and page [phone] -NPO at midnight tonight -please hold tonight's planned dose of Lovenox -further recommendations in the morning Sami Black MD, PhD PGY-3 Resident Neurosurgery [id number] signed by Sami Black at 09/21/2017 10:50 PM [facility]CleSherine estrella [facility] - 09/21/2017 7:10 AM PDTFormatting of this [...] Provena placem ent 24hr events: - Failed CHAIRPERSON ANESTHESIOLOGY eval again yest morning, continued NPO - [...] reactive. Dobbhoff tube in place Neck: in Lyons collar Respiratory: unlabored on room air CV: [...] likely 2/2 AMS & delirium - Failed CHAIRPERSON ANESTHESIOLOGY eval 09/19 & 09/20, made NPO & dobhoff reinserted yesterday - Trickle feeds started this am at 20ml/hr, increase very slowly by 10ml every 12 hrs to go al of 75 due to hx of mesenteric hematomas and previous inability to tolerate TF - Per CHAIRPERSON ANESTHESIOLOGY today, ok for therapeutic pureed with nectar [...] . - C-collar at all times, use HEALTHCARE SALES REPRESENTATIVE when OOB - Follow-up with Neurosurgery on [...] & delirium [place]g [phone] Associated attestation - Fidelina Shields MD - 09/21/2017 9:36 PM PDTAttending: I saw and examined Berlin Temple ([id number]) with KESHAWN Alexander on scarlett g rounds [...] enough to re-trial PO. Fidelina Shields MD Kettle Loader Division of Trauma, Critical Care and Acute Care Surgery Office: [phone] Pager: [phone] Sherine Sarmiento AGACNP - 09/20/2017 7:41 AM [...] haldol given yesterday afternoon for agitation - CHAIRPERSON ANESTHESIOLOGY paged to re-eval in afternoon after concern for aspiration, made NPO by CHAIRPERSON ANESTHESIOLOGY - NAEON, VSS Current meds: I have [...] right pupil 3 and reactive Neck: in Lyons collar Respiratory: unlabored on room air CV: [...] thick/pureed d iet. Made NPO yesterday by CHAIRPERSON ANESTHESIOLOGY after concern for aspiration. This is likely 2/2 waxing & wan ing delirium & AMS - CHAIRPERSON ANESTHESIOLOGY re-eval today recommend continue NPO d/t overt clinical signs of aspiration - Place Dobbhoff tube and restart feeds, slowly progress to goal - Stop TPN when tolerating tube feeds - CHAIRPERSON ANESTHESIOLOGY will follow closely, as his AMS improves [...] . - C-collar at all times, use HEALTHCARE SALES REPRESENTATIVE when OOB - Follow-up with Neurosurgery on 10/21 with repeat X-rays #Blunt abdominal trauma #Splenic laceration S/p laparotomies x2. Fascia closed 09/02 Wound vac removed by patient, but wound remains duke n/dry/intact. De Kalb removed 09/17. #Left hemothorax Chest tube placed [...] & delirium i mproves Sherine Sarmiento, [facility] Pg [phone] Associated attestation - Fidelina Shields MD - 09/20/2017 9:34 PM PDTAttending: I saw and examined Berlin Temple ([id number]) with KESHAWN Alexander on mornin g rounds [...] dispo planning when able. Fidelina Shields MD Kettle Loader Division of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 + + + + + [...] [facility] | [address] | [place] [address] | | | SERVICES, CORE | VILMA [...] [facility] | [address] | [place], [place] | | | CARDIOLOGY | [address] | [address] | | + + + + + [...] Note | + + | Service Account, [employer] In Interface - 12/03/2017 4:56 PM PDT [...] + + + + + | [facility] | [address] | [place] [address] | | | NATALEE WORTHINGTON | VILMA [...] Note | + + | Service Account, Ch[employer]Place Res In Interface - 12/03/2017 10:30 AM [...] DEPT OF | [address] | [place], [place] | | | CARDIOLOGY | [address] | [address] | | + + + + + [...] | + + + + + | [facility] | [address] | [place] [address] | | | SERVICES, CORE | VILMA [...] + | [facility] - | [address] | [place] [address] | | | [place] | | | | + + + [...] 200-499 mg/dL Very High: >=500 mg/dL | ANTALEE WORTHINGTON | + + + + + + + + | Performing | Address | City/State/Zipcode | Phone Number | | Organization | | | | + + + + + | [facility] | [address] | [place] [address] | | | NATALEE WORTHINGTON | VILMA [...] | + + + + + | [facility] | [address] | [place] [address] | | | SERVICES, CORE | PARK [...] [facility] | [address] | [place] [address] | | | SERVICES, CORE | PARK [...] | | | LABORATORY | | | SYRIAN | | | SERVICES, | | | [...] + + + + + | [facility] | [address] | [place] [address] | | | SERVICES, CORE | VILMA [...] | + + + + + | [facility] | [address] | [place] [address] | | | SERVICES, CORE | PARK [...] DEPT OF | [address] | [place], [place] | | | CARDIOLOGY | [address] | [address] | | + + + + + [...] [facility] | [address] | [place], [place] | | | CARDIOLOGY | [address] | [address] | | + + + + + [...] | | | LABORATORY | | | SYRIAN | | | SERVICES, | | | [...] | + + + + + | [facility] | [address] | [place] [address] | | | SERVICES, CORE | VILMA [...] | + + + + + | [facility] | [address] | [place] [address] | | | SERVICES, CORE | PARK [...] DEPT OF | [address] | [place], [place] | | | CARDIOLOGY | [address] | [address] | | + + + + + [...] Note | + + | Service Account, [employer] In Interface - 11/26/2017 12:36 PM PDT [...] + | [facility] | [address] | [place] [address] | | | [place] | | | | + + + [...] [facility] | [address] | [place] [address] | | | SERVICES, CORE | VILMA [...] [facility] | [address] | [place] [address] | | | SERVICES, NATALEE | PARK [...] + | [facility] | [address] | [place] [address] | | | SERVICES, CORE | PARK [...] | + + + + + | [facility] | [address] | [place] [address] | | | SERVICES, CORE | PARK [...] | | | LABORATORY | | | SYRIAN | | | SERVICES, | | | [...] | + + + + + | [facility] | [address] | [place] [address] | | | SERVICES, CORE | PARK [...] + + + + + | [facility] | [address] | [place] [address] | | | SERVICES, CORE | VILMA [...] DEPT OF | [address] | [place], [place] | | | CARDIOLOGY | [address] | [address] | | + + + + + [...] DEPT OF | [address] | [place], [place] | | | CARDIOLOGY | [address] | [address] | | + + + + + [...] + + + + | [facility] | 430 | ms | [facility] [...] DEPT OF | [address] | [place], [place] | | | CARDIOLOGY | [address] | [address] | | + + + + + [...] DEPT OF | [address] | [place], [place] | | | CARDIOLOGY | [address] | [address] | | + + + + + [...] | | | LABORATORY | | | SYRIAN | | | SERVICES, | | | [...] [facility] | [address] | [place] [address] | | | SERVICES, CORE | PARK [...] | + + + + + | [facility] | [address] | [place] [address] | | | SERVICES, [facility] | [address] | | | + [...] DEPT OF | [address] | [place] | | | CARDIOLOGY | [address] | [address] | | + + + + + [...] [facility] | [address] | [place], [place] | | | CARDIOLOGY | [address] | [address] | | + + + + + [...] [facility] | [address] | [place] [address] | | | SERVICES, CORE | PARK [...] | + + + + + | [facility] | [address] | [place] [address] | | | SERVICES, CORE | PARK [...] + | [facility] - | [address] | [place] [address] | | | [place] | | | [...] | + + + + + | [facility] | [address] | [place] [address] | | | SERVICES, CORE | PARK [...] [facility] | [address] | [place] [address] | | | SERVICES, CORE | VILMA [...] | | | LABORATORY | | | SYRIAN | | | SERVICES, | | | [...] + + + + + | [facility] | [address] | [place] [address] | | | SERVICES, NATALEE | [address] | | | + [...] | + + + + + | [facility] | [address] | [place] [address] | | | SERVICES, CORE | VILMA [...] + + | [facility] | [address] | [place], [place] | | | CARDIOLOGY | [address] | [address] | | + + + + + [...] DEPT OF | [address] | [place], [place] | | | CARDIOLOGY | [address] | [address] | | + + + + + [...] | + + + + + | [facility] | [address] | [place] [address] | | | SERVICES, CORE | VILMA [...] | [facility] OF | [address] | [place], [place] | | | CARDIOLOGY | [address] | [address] | | + + + + + [...] | | | LABORATORY | | | SYRIAN | | | SERVICES, | | | [...] [facility] | [address] | [place] [address] | | | SERVICES, CORE | PARK [...] + + + + + | [facility] | [address] | [place] [address] | | | NATALEE WORTHINGTON | VILMA [...] DEPT OF | [address] | [place], [place] | | | CARDIOLOGY | [address] | [address] | | + + + + + [...] [facility] | [address] | [place] [address] | | | SERVICES, CORE | PARK [...] | | | LABORATORY | | | SYRIAN | | | SERVICES, | | | [...] + + + + + | [facility] | [address] | [place] [address] | | | ELIN, CORE | VILMA [...] + | [facility] - | [address] | [place] [address] | | | [place] | | | | + + + [...] | [facility] | [address] | [place], [place] | | | CARDIOLOGY | [address] | [address] | | + + + + + [...] Note | + + | Service Account, Radizee[employer]AVES Res In Interface - 11/12/2017 12:11 PM [...] + + + + + | [facility] | [address] | [place] [address] | | | SERVICES, CORE | VILMA [...] + | [facility] - | [address] | [place] [address] | | | [facility] | | | | + + + [...] DEPT OF | [address] | [place], [place] | | | CARDIOLOGY | [address] | [address] | | + + + + + [...] | + + + + + | [facility] | [address] | [place] [address] | | | SERVICES, CORE | PARK [...] + | [facility] - | [address] | [place] [address] | | | [facility] | | | | + + + [...] | + + + + + | [facility] | [address] | [place] [address] | | | SERVICES, CORE | VILMA [...] [facility] | [address] | [place] [address] | | | SERVICES, CORE | VILMA [...] + + + + + | [facility] | [address] | [place] [address] | | | SERVICES, CORE | PARK [...] | | | LABORATORY | | | SYRIAN | | | SERVICES, | | | [...] | + + + + + | [facility] | [address] | [place] [address] | | | SERVICES, CORE | PARK [...] [facility] | [address] | [place] [address] | | | SERVICES, CORE | PARK [...] [facility] | [address] | [place] [address] | | | SERVICES, CORE | PARK [...] | | | LABORATORY | | | SYRIAN | | | SERVICES, | | | [...] the MDRD equation recommended by the | [facility] | | National Kidney Disease Education Program. [...] + + + + + | [facility] | [address] | [place] [address] | | | NATALEE WORTHINGTON | VILMA [...] + + + + | [facility] | 447 | ms | [facility] [...] DEPT OF | [address] | [place], [place] | | | CARDIOLOGY | [facility] | [address] | | + + + + + [...] + + | [facility] | [address] | [place] [address] | | | SERVICES, CORE | PARK [...] | | | LABORATORY | | | SYRIAN | | | SERVICES, | | | [...] + + + + + | [facility] | [address] | [place] [address] | | | SERVICES, CORE | [address] | | | + + + + + MAGNESIUM, PLASMA (11/09/2017 4:18 AM PDT) + +-------+ + + + | Component | Value | Ref Range | Performed | Pathologist | | | | | At | Signature | + +-------+ + + + | MAGNESIUM,P | 2.0 | 1.6 - 2.6 mg/dL | [facility] | | | LAS[facility] | | [...] [facility] | [address] | [place] [address] | | | SERVICES, NATALEE | VILMA [...] | | | LABORATORY | | | SYRIAN | | | SERVICES, | | | [...] | + + + + + | [facility] | [address] | [place] [address] | | | SERVICES, CORE | VILMA [...] in the calvarium which appear similar to Shiloh ron 2016 CT. These are indeterminant. Metastatic disease [...] + + + + + | [facility] | [address] | [place] [address] | | | SERVICES, NATALEE | PARK [...] | | | LABORATORY | | | SYRIAN | | | SERVICES, | | | [...] | + + + + + | [facility] | [address] | [place] [address] | | | SERVICES, CORE | PARK [...] DEPT OF | [address] | [place], [place] | | | CARDIOLOGY | [address] | [address] | | + + + + + [...] Note | + + | Service Account, [employer]AV[employer] Res In Interface - 11/07/2017 4:05 PM [...] PM Preliminary: Leif Caal MD Dictation initiated: Prabhakra Ortega | 11/07/2017 3:37 PM | |FACE/ORBITS: [...] + + + + | [facility]TC[facility] | 495 | ms | [facility] [...] DEPT OF | [address] | [place], [place] | | | CARDIOLOGY | [address] | [address] | | + + + + + [...] | | | LABORATORY | | | SYRIAN | | | SERVICES, | | | [...] + + + + + | [facility] | [address] | [place] [address] | | | SERVICES, CORE | [address] | | | + + + + + MAGNESIUM, PLASMA (11/07/2017 7:22 AM PDT) + +-------+ + + + | Component | Value | Ref Range | Performed | Pathologist | | | | | At | Signature | + +-------+ + + + | MAGNESIUM,P | 1.8 | 1.6 - 2.6 mg/dL | [facility] | | | [facility] | | | [...] [facility] | [address] | [place] [address] | | | SERVICES, CORE | VILMA [...] + + + + | PRODUCT | [id number] | | [facility] | | | UNIT [...] + + + + | EXPIRATION | [id number] | | [facility] | | | DATE [...] + + + + | BLOOD | [id number] | | [facility] | | | PRODUCT [...] [facility] | [address] | [place] [address] | | | SERVICES, | [address] [...] + + + + | PRODUCT | [id number] | | [facility] | | | UNIT [...] + + + + | EXPIRATION | [id number] | | [facility] | | | DATE [...] + + + + | BLOOD | [id number] | | [facility] | | | PRODUCT [...] [facility] | [address] | [place] [address] | | | SERVICES, | [address] [...] + + + + + | [facility] | [address] | [place] [address] | | | NATALEE WORTHINGTON | VILMA [...] | + + + + + | [facility] | [address] | [place] [address] | | | SERVICES, CORE | PARK [...] | | | LABORATORY | | | SYRIAN | | | SERVICES, | | | [...] + + + + + | [facility] | [address] | [place] [address] | | | SERVICES, CORE | [address] | | | + + + + + OPERATION RECORD (11/06/2017 12:27 AM PDT) + + | Procedure Note | + + | Magdiel Stock MD - 11/06/2017 12:27 AM PDT Date of Service: 11/05/2017 Attending | | Surgeon: Magdiel Stock MD Pump House Technician(s): Rg Aiken MD | | Preoperative Diagnoses: [...] his head was placed in a horseshoe filter tank tender helper head with his C-collar still | | [...] the incision down to the cranium. Once [place] | | skull was reached circumferentially around the prior incision, a #1 [place] was used | | to subperiosteally dissect [...] note for this encounter.Sonal Nunez, | | [facility] [id number] [place], [place] | | [phone] Orina, MDJB/TAHIRLDD: 11/05/2017 20:38:01DT: 11/06/2017 | | 00:27:33Job #: [id number] | |HATTIE/TAHIRL | | | | | | /[id number] | + + CT HEAD WO CONTRAST [...] Service Account, Kostas Res In Interface - 11/05/2017 8:20 PM [...] Surgeon: Magdiel | | | MD Dayami Pump House Technician: Rg Aiken MD Pre-op Diagnosis: | | [...] PGY-4 Neurological Surgery Pager | | | [phone] | | + + + CAPILLARY BLOOD [...] [facility] | [address] | [place], [place] | | | [employer]IA [employer] | [facility] | [address] | | | TESTS | | | [...] [facility] | [address] | [place], [place] | | | [employer] | [address] | [address] | | | TESTS | | | [...] Note | + + | Service Account, [employer] In Interface - 11/05/2017 11:31 AM PDT [...] [facility] | [address] | [place] [address] | | | ELIN, NATALEE | [address] [...] [facility] | [address] | [place] [address] | | | SERVICES, CORE | [address] [...] | | | LABORATORY | | | SYRIAN | | | SERVICES, | | | [...] MDRD equation recommended by the | [facility] | | National Kidney Disease Education [...] + + + + + | [facility] | [address] | [place] [address] | | | NATALEE WORTHINGTON | [address]ILMA [...] | + + + + + | [facility] | [address] | [place] [address] | | | SERVICES, CORE | [address] [...] + + + + | PRODUCT | [id number] | | [facility] | | | UNIT [...] + + + + | EXPIRATION | [id number] | | [facility] | | | DATE [...] + + + + | BLOOD | [id number] | | [facility] | | | PRODUCT [...] [facility] | [address] | [place] [address] | | | SERVICES, | [address] [...] + + + + | PRODUCT | [id number] | | [facility] | | | UNIT [...] + + + + | EXPIRATION | [id number] | | [facility] | | | DATE [...] + + + + | BLOOD | [id number] | | [facility] | | | PRODUCT [...] | + + + + + | [facility] | [address] | [place] [address] | | | SERVICES, | [address] [...] + + + + + | [facility] | [address] | [place] [address] | | | NATALEE WORTHINGTON | PARK [...] [facility] | [address] | [place] [address] | | | SERVICES, | [address] [...] | + + + + + | [facility] | [address] | [place] [address] | | | ELIN, | [address] [...] | + + + + + | [facility] | [address] | [place] [address] | | | SERVICES, CORE | VILMA [...] DEPT OF | [address] | [place], [place] | | | CARDIOLOGY | [address] | [address] | | + + + + + [...] | + + + + + | [facility] | [address] | [place] [address] | | | SERVICES, CORE | [address] [...] | + + + + + | [facility] | [address] | [place] [address] | | | SERVICES, CORE | [address] [...] + | [facility] | [address] | [place] [address] | | | [place] | | | | + + + [...] | Triglyceride Reference Range: Normal: <150 | [facility] | | mg/dL Borderline High: 150-199 mg/dL High: | LABORATORY | | 200-499 mg/dL Very High: >=500 mg/dL | ELIN, CORE | + + + + + + + + | Performing | Address | City/State/Zipcode | Phone Number | | Organization | | | | + + + + + | [facility] | [address] | [place] [address] | | | SERVICES, NATALEE | VILMA [...] [facility] | [address] | [place] [address] | | | SERVICES, CORE | PARK [...] | | | LABORATORY | | | SYRIAN | | | SERVICES, | | | [...] MDRD equation recommended by the | [facility] | | National Kidney Disease Education [...] + + + + + | [facility] | [address] | [place] [address] | | | NATALEE WORTHINGTON | VILMA [...] + + + + + | [facility] | [address] | [place] [address] | | | ELIN, NATALEE | PARK [...] + + + + + | [facility] | [address] | [place] [address] | | | SERVICES, CORE | VILMA [...] | | | LABORATORY | | | SYRIAN | | | SERVICES, | | | [...] [facility] | [address] | [place] [address] | | | SERVICES, CORE | PARK [...] [facility] | [address] | [place] [address] | | | SERVICES, CORE | PARK [...] | | | LABORATORY | | | SYRIAN | | | SERVICES, | | | [...] the MDRD equation recommended by the | [facility] | | National Kidney Disease Education Program. [...] + + + + + | [facility] [facility] | [address] | [place] [address] | | | ELIN, NATALEE | VILMA [...] | [facility] | [address] [facility] [facility] | [place], [place] | | | CARDIOLOGY | [address] | [address] | | + + + + + [...] [facility] | [address] | [place] [address] | | | SERVICES, CORE | PARK [...] | | | LABORATORY | | | SYRIAN | | | SERVICES, | | | [...] MDRD equation recommended by the | [facility] | | National Kidney Disease Education [...] + + + + + | [facility] | [address] | [place] [address] | | | SERVICES, [facility] | [address] | | | + [...] MD 10/31/2017 8:19 PM | |Dictation initiated: Gaeg Solomon MD 10/31/2017 6:09 PM | + [...] OF | [address] | [place], [place] | | | CARDIOLOGY | [address] | [address] | | + + + + + [...] | | | LABORATORY | | | SYRIAN | | | SERVICES, | | | [...] MDRD equation recommended by the | [facility] | | National Kidney Disease Education [...] + + + + + | [facility] | [address] | [place] [address] | | | NATALEE WORTHINGTON | VILMA [...] | + + + + + | [facility] | [address] | [place] [address] | | | NATALEE WORTHINGTON | PARK [...] - [facility] | [address] | [place], [place] | | | [place] POINT OF CARE | [address] | [address] | | | TESTS | | | [...] [facility] | [address] | [place] [address] | | | ELIN, NATALEE | VILMA [...] | | | LABORATORY | | | SYRIAN | | | SERVICES, | | | [...] | + + + + + | [facility] | [address] | [place] [address] | | | SERVICES, CORE | VILMA [...] Note | + + | Service Account, Kisstixx In Interface - 10/29/2017 12:13 PM PDT [...] [facility] | [address] | [place], [place] | | | [facility] POINT OF CARE | [address] | [address] | | | TESTS | | | [...] [facility] | [address] | [place] [address] | | | SERVICES, CORE | PARK [...] | | | LABORATORY | | | SYRIAN | | | SERVICES, | | | [...] MDRD equation recommended by the | [facility] | | National Kidney Disease Education [...] | + + + + + | [facility] | [address] | [place] [address] | | | ELIN, NATALEE | VILMA [...] | 70 - 99 mg/dL | [facility] - | | | GLUCOSE, | [...] [facility]EL[facility] | [address] | [place], [place] | | | GLORIA GENAO OF [facility] | [address] | [address] | | | TESTS | | | [...] DEPT OF | [address] | [place], [place] | | | CARDIOLOGY | [address] | [address] | | + + + + + [...] [facility] | [address] | [place] | | | GLORIA GENAO OF CARE | [address] | [address] | | | TESTS | | | [...] | 70 - 99 mg/dL | [facility] - | | | GLUCOSE, | [...] [facility] | [address] | [place], [place] | | | GLORIA GENAO OF CARE | [address] | [address] | | | TESTS | | | [...] + + + + + | [facility] | [address] | [place] [address] | | | SERVICES, CORE | VILMA [...] + | [facility] - | [address] | [place] [address] | | | [place] | | | | + + + [...] | Triglyceride Reference Range: Normal: <150 | [facility] | | mg/dL Borderline High: 150-199 mg/dL High: | LABORATORY | | 200-499 mg/dL Very High: >=500 mg/dL | NATALEE WORTHINGTON | + + + + + + + + | Performing | Address | City/State/Zipcode | Phone Number | | Organization | | | | + + + + + | [facility] | [address] | [place] [address] | | | NATALEE WORTHINGTON | VILMA [...] | + + + + + | [facility] | [address] | [place] [address] | | | SERVICES, CORE | PARK [...] [facility] | [address] | [place] [address] | | | SERVICES, CORE | PARK [...] | | | LABORATORY | | | SYRIAN | | | SERVICES, | | | [...] | + + + + + | [facility] | [address] | [place] [address] | | | SERVICES, NATALEE | VILMA [...] | + + + + + | [facility] | [address] | [place] [address] | | | SERVICES, CORE | PARK [...] MARKHR[facility] | [address] | [place], [place] | | | GLORIA GENAO OF CARE | [address] | [address] | | | TESTS | | | [...] + + + + | [facility] | [address] | [place], [place] | | | [place] WORDEN OF [facility] | [address] | [address] | | | TESTS | | | [...] Note | + + | Service Account, ChicPlace Res In Interface - 10/28/2017 9:21 AM [...] At | + + + | EXAM: NC CHEST PICC LINE CHECK HISTORY: picc done [...] Note | + + | Service Account, RadizeeWAVES Res In Interface - 10/27/2017 6:29 PM PDT EXAM: NC CHEST | | PICC LINE CHECK HISTORY: [...] and TPN Procedure | | | location: Unit:[facility] Room: 4 Providers: Attending name: [...] correct | | | patient, procedure, equipment, business support and site/side marked as | | [...] vein. Catheter lot number: | | | [id number] with a length of 55 cm was [...] - RAPHAELAM | [address] | [place], [place] | | | GLORIA GENAO OF [facility] | [address] | [address] | | | TESTS | | | [...] OF | [address] | [place], [place] | | | CARDIOLOGY | [address] | [address] | | + + + + + [...] [facility] | [address] | [place], [place] | | | GLORIA GENAO OF [facility] | [facility] | [address] | | | TESTS | | | [...] | + + + + + | [facility] | [address] | [place] [address] | | | SERVICES, CORE | VILMA [...] | | | LABORATORY | | | SYRIAN | | | SERVICES, | | | [...] + + + + + | [facility] | [address] | [place] [address] | | | SERVICES, CORE | VILMA [...] (H) | 70 - 99 mg/dL | [facility] - | | | GLUCOSE, | | [...] [facility] | [address] | [place], [place] | | | [place] [facility]INT OF CARE | [address] | [address] | | | TESTS | | | [...] [facility] | [address] | [place], [place] | | | GLORIA GENAO OF CARE | [address] | [address] | | | TESTS | | | [...] - [facility] | [address] | [place], [place] | | | [place] POINT OF CARE | [address] | [address] | | | TESTS | | | [...] [facility] | [address] | [place] [address] | | | SERVICES, CORE | PARK [...] | | | LABORATORY | | | SYRIAN | | | SERVICES, | | | [...] | + + + + + | [facility] | [address] | [place] [address] | | | NATALEE WORTHINGTON | VILMA [...] - [facility] | [address] | [place], [place] | | | [place] POINT OF CARE | [address] | [address] | | | TESTS | | | [...] | | | LABORATORY | | | SYRIAN | | | SERVICES, | | | [...] MDRD equation recommended by the | [facility] | | National Kidney Disease Education [...] + + + + + | [facility] | [address] | [place] [address] | | | NATALEE WORTHINGTON | PARK [...] - [facility] | [address] | [place], [place] | | | [facility]INT OF CARE | [address] | [address] | | | TESTS | | | [...] DEPT OF | [address] | [place], [place] | | | CARDIOLOGY | [address] | [address] | | + + + + + [...] [facility] | [address] | [place] | | | GLORIA GENAO OF [facility] | [address] | [address] | | | TESTS | | | [...] OF | [address] | [place], [place] | | | CARDIOLOGY | [address] | [address] | | + + + + + [...] | + + + + + | [facility] | [address] | [place] [address] | | | NATALEE WORTHINGTON | VILMA [...] + | [facility] - | [address] | [place] [address] | | | [place] | | | [...] [facility] | [address] | [place] [address] | | | SERVICES, CORE | PARK [...] | + + + + + | [facility] | [address] | [place] [address] | | | SERVICES, CORE | VILMA [...] | + + + + + | [facility] | [address] | [place] [address] | | | SERVICES, CORE | PARK [...] [facility] | [address] | [place] [address] | | | SERVICES, CORE | VILMA [...] [facility] | [address] | [place] [address] | | | SERVICES, CORE | PARK [...] [facility] | [address] | [place] [address] | | | SERVICES, CORE | PARK [...] | + + + + + | [facility] | [address] | [place] [address] | | | SERVICES, CORE | VILMA [...] [facility] | [address] | [place] [address] | | | SERVICES, CORE | PARK [...] + + + + + | [facility] | [address] | [place] [address] | | | SERVICES, CORE | [address] | | | + + + + + MAGNESIUM, PLASMA (10/24/2017 4:45 PM PDT) + +-------+ + + + | Component | Value | Ref Range | Performed | Pathologist | | | | | At | Signature | + +-------+ + + + | MAGNESIUM,P | 1.7 | 1.6 - 2.6 mg/dL | [facility] | | | LASMA | | [...] [facility] | [address] | [place] [address] | | | SERVICES, NATALEE | VILMA [...] | | | LABORATORY | | | SYRIAN | | | SERVICES, | | | [...] + + + + + | [facility] | [address] | [place] [address] | | | SERVICES, NATALEE | [address] | | | + + + + + CHELE CATES (10/24/2017 4:01 PM PDT) + + + | Narrative | Performed At | + + + | Farhan Farrell RN 10/24/2017 4:05 PM PICC LINE Performed | | | by: FARHAN FARRELL Authorized by: CHAZ MUONZ PICC/Sugar | | | Insertion Procedure Note [...] | | | correct patient, procedure, equipment, business support and site/side | | | marked [...] | area Basilic vein. Catheter lot number: [id number] with a length of 55 | | [...] At | + + + | EXAM: NC CHEST 1 VIEW HISTORY: PICC placed-pt ready. [...] Interface - 10/24/2017 3:43 PM PDT EXAM: NC CHEST 1 | | VIEW HISTORY: PICC [...] [facility] | [address] | [place], [place] | | | GLORIA GENAO OF CARE | [address] | [address] | | | TESTS | | | [...] | | Surgical Critical Care, PGY7 Pager: [phone] | | + + + CAPILLARY BLOOD [...] RAP[facility]EL[facility] | [address] | [place], [place] | | | [place]INT OF CARE | [address] | [address] | | | TESTS | | | [...] [facility] | [address] | [place], [place] | | | GLORIA GENAO OF [facility] | [facility] | [address] | | | TESTS | | | [...] | | | LABORATORY | | | SYRIAN | | | SERVICES, | | | [...] | + + + + + | [facility] | [address] | [place] [address] | | | SERVICES, CORE | [address]ARK [...] + + + + + | [facility] | [address] | [place] [address] | | | SERVICES, CORE | VILMA [...] - [facility] | [address] | [place], [place] | | | [place] W[place]EN OF [facility] | [address] | [address] | | | TESTS | | | [...] | + + + + + | [facility] | [address] | [place] [address] | | | SERVICES, CORE | VILMA [...] | | | LABORATORY | | | SYRIAN | | | SERVICES, | | | [...] | + + + + + | [facility] | [address] | [place] [address] | | | SERVICES, CORE | VILMA [...] DEPT OF | [address] | [place], [place] | | | CARDIOLOGY | [address] | [address] | | + + + + + IR GASTROSTOMY TUBE EXCHANGE (10/22/2017 2:42 PM PDT) + + | Specimen | + + | | + + + + + | Narrative | Performed At | + + + | Procedure: Gastrostomy tube exchange Primary attending | [facility] | | gauge and instrument inspector: Shade Goodwin M.D. Preoperative diagnosis: | RADIOLOGY VOICE | | Malfunctioning Gastrostomy tube Postoperative diagnosis: Same | RECOGNITION | | Operations: Operation 1. Removal of existing Gastrostomy tube | | | over a guide wire Operation 2. Placement of 24 Namibian GABRIEL | | | gastrostomy over guide [...] a stiff glide wire the new 24 Namibian gastrostomy tube was | | | inserted. [...] Procedure: | | Gastrostomy tube exchangePrimary attending gauge and instrument inspector: Shade Goodwin | | BrynPreoperative diagnosis: Malfunctioning Gastrostomy tubePostoperative diagnosis: | | SameOperations:Operation 1. Removal of existing Gastrostomy tube over a guide | | wireOperation 2. Placement of 24 Namibian GABRIEL gastrostomy over guide wireNo sedation was [...] glide wire the | | new 24 Namibian gastrostomy tube was inserted. The position of [...] stiff g lide wire the new 24 Namibian | |gastrostomy tube was inserted. The position [...] Note | + + | Service Account, K[employer] In Interface - 10/22/2017 10:34 AM PDT [...] | [facility] | [address] | [place], [place] | | | CARDIOLOGY | [address] | [address] | | + + + + + [...] Note | + + | Service Account, Ch[employer]Place Res In Interface - 10/22/2017 8:06 AM [...] | + + + + + | [facility] | [address] | [place] [address] | | | SERVICES, CORE | [address]ARK [...] | | | LABORATORY | | | SYRIAN | | | SERVICES, | | | [...] + + + + + | [facility] | [address] | [place] [address] | | | SERVICES, NATALEE | [address] | | | + + + + + 12 LEAD ECG (10/21/2017 2:12 PM PDT) + + + + + + | Component | Value | Ref Range | Performed | Pathologist | | | | | At | Signature | + + + + + + | VENTRICULAR | 61 | bpm | [facility] DEPT | | | RATE | [...] DEPT OF | [address] | [place], [place] | | | CARDIOLOGY | [address] | [address] | | + + + + + [...] | | | LABORATORY | | | SYRIAN | | | SERVICES, | | | [...] MDRD equation recommended by the | [facility] | | National Kidney Disease Education [...] + + + + + | [facility] | [address] | [place] [address] | | | ELIN, CORE | PARK [...] [facility] | [address] | [place] [address] | | | SERVICES, NATALEE | VILMA [...] GEET OF | [address] | [place], [place] | | | CARDIOLOGY | [address] | [address] | | + + + + + [...] [facility] | [address] | [place] [address] | | | SERVICES, CORE | PARK [...] | | | LABORATORY | | | SYRIAN | | | SERVICES, | | | [...] MDRD equation recommended by the | [facility] | | National Kidney Disease Education [...] + + + + + | [facility] | [address] | [place] [address] | | | NATALEE WORTHINGTON | VILMA [...] | [facility] | [address] | [place], [place] | | | CARDIOLOGY | [address] | [address] | | + + + + + [...] | | | LABORATORY | | | SYRIAN | | | SERVICES, | | | [...] MDRD equation recommended by the | [facility] | | National Kidney Disease Education [...] + + + + + | [facility] | [address] | [place] [address] | | | SERVICES, CORE | [address] | | | + + + + + MAGNESIUM, PLASMA (10/17/2017 4:58 AM PDT) + +-------+ + + + | Component | Value | Ref Range | Performed | Pathologist | | | | | At | Signature | + +-------+ + + + | MAGNESIUM,P | 2.0 | 1.6 - 2.6 mg/dL | [facility] | | | LASMA | | [...] [facility] | [address] | [place] [address] | | | SERVICES, CORE | [address]ILMA [...] | IMPRESSION | by: AJAY DE LOS SNATOS | | OF | | | | [...] OF | [address] | [place], [place] | | | CARDIOLOGY | [facility] | [address] | | + + + + + [...] | | | LABORATORY | | | SYRIAN | | | SERVICES, | | | [...] MDRD equation recommended by the | [facility] | | National Kidney Disease Education [...] + + + + + | [facility] | [address] | [place] [address] | | | NATALEE WORTHINGTON | VILMA [...] + + + + + | [facility] | [address] | [place] [address] | | | SERVICES, CORE | VILMA [...] Note | + + | Service Account, Kis[employer]x In Interface - 10/15/2017 3:58 PM PDT [...] DEPT OF | [address] | [place], [place] | | | CARDIOLOGY | [address] | [address] | | + + + + + [...] - [facility] | [address] | [place] | | | [place] OF [facility] | [facility] | [address] | | | TESTS | | | [...] | + + + + + | [facility] | [address] | [place] [address] | | | SERVICES, CORE | VILMA [...] [facility] | [address] | [place], [place] | | | GLORIA GENAO OF CARE | [address] | [address] | | | TESTS | | | [...] DEPT OF | [address] | [place], [place] | | | CARDIOLOGY | [address] | [address] | | + + + + + [...] + + + + + | [facility] | [address] | [place] [address] | | | SERVICESNATALEE | [address] [...] | | | LABORATORY | | | SYRIAN | | | SERVICES, | | | [...] | + + + + + | [facility] | [address] | [place] [address] | | | SERVICES, CORE | [address] [...] + + + + + | [facility] | [address] | [place] [address] | | | SERVICES, CORE | VILMA [...] | 70 - 99 mg/dL | [facility] - | | | GLUCOSE, | [...] + + + + + | [facility] | [address] | [place], [place] | | | CH[place]WICK POINT OF CARE | [address] | [address] | | | TESTS | | | [...] [facility] | [address] | [place], [place] | | | [place] GENAO [facility] | [facility] | [address] | | | TESTS | | | [...] | + + + + + | [facility] | [address] | [place] [address] | | | SERVICES, CORE | [address]IL[address] [...] | | | LABORATORY | | | SYRIAN | | | SERVICES, | | | [...] MDRD equation recommended by the | [facility] | | National Kidney Disease Education [...] | + + + + + | [facility] | [address] | [place] [address] | | | SERVICES, [facility] | [address] | | | + + + + + OPERATION RECORD (10/12/2017 8:50 PM PDT) + + | Procedure Note | + + | Pilar Cotto MD - 10/12/2017 8:50 PM PDT Date of Service: 10/12/2017 | | Attending Surgeon: Chaz Munoz MD Pump House Technician(s): Randell Dixon M.D., | | fellow. George [...] saline. We then | | placed a 19-Namibian drain deep into the abscess cavity, tracking [...] 10/12/2017 19:50:06DT: 10/12/2017 20:50:54Job #: | | [id number] | + + X-RAY PORTABLE CHEST 1 VIEW (10/12/2017 7:50 PM PDT) + + | Specimen | + + | | + + + + + | Narrative | Performed At | + + + | EXAM: NC CHEST 1 VIEW HISTORY: Evaluate endotracheal tube [...] Note | + + | Service Account, [employer] Res In Interface - 10/13/2017 9:04 AM PDT EXAM: NC CHEST 1 | | VIEW HISTORY: Evaluate [...] + + + | [facility] | [address] | [place], [place] | | | GLORIA GENAO [facility] | [address] | [address] | | | TESTS | | | [...] Note | + + | Service Account, RadizeeWAVES Res In Interface - 10/12/2017 5:05 PM [...] [facility] | [address] | [place] [address] | | | SERVICES, CORE | [address] [...] | | | LABORATORY | | | SYRIAN | | | SERVICES, | | | [...] MDRD equation recommended by the | [facility] | | National Kidney Disease Education [...] + + + + + | [facility] | [address] | [place] [address] | | | ELIN, NATALEE | VILMA [...] [facility] | [address] | [place] [address] | | | NATALEE WORTHINGTON | VILMA [...] GERARDT | | | IMPRESSION | by: PAULO [...] OF | [address] | [place], [place] | | | CARDIOLOGY | [address] | [address] | | + + + + + [...] + + + + + | [facility] DEPT OF | [address] | [place], [place] | | | CARDIOLOGY | [address] | [address] | | + + + + + [...] + + + + + | [facility] | [address] | [place] [address] | | | SERVICES, CORE | [address] | | | + + + + + MAGNESIUM, PLASMA (10/11/2017 12:15 AM PDT) + +-------+ + + + | Component | Value | Ref Range | Performed | Pathologist | | | | | At | Signature | + +-------+ + + + | MAGNESIUM,P | 1.7 | 1.6 - 2.6 mg/dL | [facility] | | | LASMA | | | [...] [facility] | [address] | [place] [address] | | | SERVICES, NATALEE | [address]IL[address] [...] | | | LABORATORY | | | SYRIAN | | | SERVICES, | | | [...] | + + + + + | [facility] | [address] | [place] [address] | | | SERVICES, NATALEE | [address] | | | + + + + + PROCEDURE NOTE (10/10/2017 10:00 PM PDT) + + + | Narrative | Performed At | + + + | Darius Link MD 10/12/2017 11:11 AM OPERATIVE REPORT | | | DATE OF OPERATION: 10/10/2017 ATTENDING SURGEON: 1. Dr. Munoz | | | PRINT DECORATOR: 1. Darius Link MD INDICATIONS: Dysphagia | | | and need for longterm nutrition access PREOPERATIVE DIAGNOSIS: | | | 1.Dysphagia and need for longterm nutrition access | | | POSTOPERATIVE DIAGNOSIS: [...] Procedure Date: 10/10/2017 Author: Darius Radford | Prabhakar Link MD Attending Physician: Dr. Munoz Assistants: Darius | | Prabhakar Link At (time), prior to [...] | | | [place] [id number] Chief Resident | | | Neurosurgery | [...] [facility] | [address] | [place] [address] | | | SERVICES, CORE | [address]ARK [...] | | | LABORATORY | | | SYRIAN | | | SERVICES, | | | [...] MDRD equation recommended by the | [facility] | | National Kidney Disease Education [...] + + + + + | [facility] | [address] | [place] [address] | | | SERVICES, CORE | PARK [...] | + + + + + | [facility] | [address] | [place] [address] | | | NATALEE [place] | [address] | | | + + + + + OPERATION RECORD (10/10/2017 12:40 PM PDT) + + | Procedure Note | + + | Magdiel Stock MD - 10/10/2017 12:40 PM PDT Date of Service: 10/10/2017 Attending | | Surgeon: Magdiel Stock MD Pump House Technician(s): Cecilia Hernandez, | | . Preoperative Diagnoses: [...] This is a 67-year-old male. Please see [facility] for full details. He | | [...] the note for this encounter.Sonal Nunez [facility] [id number] [facility] | | [place] [phone] Orina, MDFAH/MODLDD: | | 10/10/2017 11:52:15DT: 10/10/2017 12:40:41Job #: [id number] | | | | | |I was present for the critical portions of the procedure as described in the note for this encounter. | | | |Magdiel Stock MD | | | |Magdiel Stock MD | |[address] | |[address] | |[facility] | |[place] [address] | |[phone] | | | | | |Magdiel Stock MD | |JAYLAN/DUC | | | | | | /[id number] | + + X-RAY ABDOMEN 1 VIEW [...] + | [facility] | [address] | [place] [address] | | | [facility] | | | | + + + [...] + | [facility] - | [address] | [place] [address] | | | [place] | | | [...] Gram Stain: No squamous epithelial cells | [facility] | | Many polymorphonuclear cells No organisms seen | | + + + + + + + + | Performing | Address | City/State/Zipcode | Phone Number | | Organization | | | | + + + + + | [facility] | [address] | [place] [address] | | | [place] | | | [...] + | [facility] - | [address] | [place] [address] | | | [place] | | | | + + + [...] + | [facility] - | [address] | [place] [address] | | | [place] | | | [...] Gram Stain: No squamous epithelial cells | [facility] | | Many polymorphonuclear cells No organisms seen | | + + + + + + + + | Performing | Address | City/State/Zipcode | Phone Number | | Organization | | | | + + + + + | [facility] | [address] | [place] [address] | | | [place] | | | [...] + | [facility] | [address] | [place] [address] | | | [facility] | | | | + + + [...] Gram Stain: No squamous epithelial cells | [facility] | | Few polymorphonuclear cells No organisms seen | | + + + + + + + + | Performing | Address | City/State/Zipcode | Phone Number | | Organization | | | | + + + + + | [facility] | [address] | [place] [address] | | | [place] | | | | + + + [...] | | cells No organisms seen | [place] | + + + + + + + + | Performing | Address | City/State/Zipcode | Phone Number | | Organization | | | | + + + + + | [facility] | [address] | [place] [address] | | | [place] | | | | + + + [...] + | [facility] | [address] | [place] [address] | | | [place] | | | [...] + | [facility] | [address] | [place] [address] | | | [place] | | | | + + + [...] + | [facility] | [address] | [place] [address] | | | [place] | | | [...] + | [facility] | [address] | [place] [address] | | | [facility] | | | | + + + [...] - | | | | | | [place] | | + + + + + [...] Gram Stain: No squamous epithelial cells | [place] | | Moderate polymorphonuclear cells No organisms seen | | + + + + + + + + | Performing | Address | City/State/Zipcode | Phone Number | | Organization | | | | + + + + + | [facility] | [address] | [place] [address] | | | [place] | | | [...] + | [facility] | [address] | [place] [address] | | | [place] | | | | + + + [...] | | [facility] - | | | [facility] | + + + + + + + + | Performing | Address | City/State/Zipcode | Phone Number | | Organization | | | | + + + + + | [facility] | [address] | [place] [address] | | | [place] | | | [...] Gram Stain: No squamous epithelial cells | [place] | | Moderate polymorphonuclear cells No organisms seen | | + + + + + + + + | Performing | Address | City/State/Zipcode | Phone Number | | Organization | | | | + + + + + | [facility] | [address] | [place] [address] | | | [place] | | | | + + + [...] + | [facility] | [address] | [place] [address] | | | [facility] | | | | + + + [...] | + + + + + | [facility] | [address] | [place] [address] | | | SERVICES, CORE | VILMA [...] [facility] | [address] | [place] [address] | | | SERVICES, CORE | PARK [...] [facility] | [address] | [place] [address] | | | NATALEE WORTHINGTON | VILMA [...] | | | LABORATORY | | | SYRIAN | | | SERVICES, | | | [...] | + + + + + | [facility] | [address] | [place] [address] | | | SERVICES, CORE | VILMA [...] DEPT OF | [address] | [place], [place] | | | CARDIOLOGY | [facility] | [address] | | + + + + + [...] + + + + | PRODUCT | [id number] | | [facility] | | | UNIT [...] + + + + | EXPIRATION | [id number] | | [facility] | | | DATE [...] + + + + | BLOOD | [id number] | | [facility] | | | PRODUCT [...] [facility] | [address] | [place] [address] | | | SERVICES, | [address] [...] + + + + | PRODUCT | [id number] | | [facility] | | | UNIT [...] + + + + | EXPIRATION | [id number] | | [facility] | | | DATE [...] + + + + | BLOOD | [id number] | | [facility] | | | PRODUCT [...] [facility] | [address] | [place] [address] | | | SERVICES, | [address] [...] | + + + + + | [facility] | [address] | [place] [address] | | | SERVICES, | [address] [...] [facility] | [address] | [place] [address] | | | SERVICES, | [address] [...] | + + + + + | [facility] | [address] | [place] [address] | | | SERVICES, | [address] [...] + + + + + | [facility] | [address] | [place] [address] | | | SERVICES, CORE | [address] | | | + + + + + 12 LEAD ECG (10/09/2017 10:03 AM PDT) + + + + + + | Component | Value | Ref Range | Performed | Pathologist | | | | | At | Signature | + + + + + + | VENTRICULAR | 61 | bpm | [facility] | | | RATE | | [...] [facility] | [address] | [place], [place] | | | CARDIOLOGY | [address] | [address] | | + + + + + [...] Note | + + | Service Account, [employer] In Interface - 10/08/2017 10:47 AM PDT [...] [facility] | [address] | [place], [place] | | | GLORIA GENAO OF CARE | [address] | [address] | | | TESTS | | | [...] [facility] | [address] | [place] [address] | | | NATALEE WORTHINGTON | VILMA [...] + + + + + | [facility] | [address] | [place] [address] | | | SERVICES, NATALEE | VILMA [...] | | | LABORATORY | | | SYRIAN | | | SERVICES, | | | [...] | + + + + + | [facility] | [address] | [place] [address] | | | SERVICES, CORE | VILMA [...] [facility] | [address] | [place], [place] | | | GLORIA GENAO OF GM | [facility] | [address] | | | TESTS | | | [...] [facility] | [address] | [place] | | | GLORIA GENAO OF GM | [facility] | [address] | | | TESTS | | | [...] | 70 - 99 mg/dL | [facility] - | | | GLUCOSE, | [...] [facility] | [address] | [place], [place] | | | [place] POINT OF CARE | [address] | [address] | | | TESTS | | | [...] [facility] | [address] | [place] | | | GLORIA GENAO OF GM | [address] | [address] | | | TESTS | | | [...] - [facility] | [address] | [place], [place] | | | GLORIA GENAO OF [facility] | [facility] | [address] | | | TESTS | | | [...] | + + + + + | [facility] | [address] | [place] [address] | | | SERVICES, CORE | VILMA [...] + + | [facility] | [address] | [place] [address] | | | SERVICES, CORE | PARK [...] | | | LABORATORY | | | SYRIAN | | | SERVICES, | | | [...] [facility] | [address] | [place] [address] | | | NATALEE WORTHINGTON | VILMA [...] 99 | 70 - 99 mg/dL | [facility] - | | | GLUCOSE, | [...] [facility] | [address] | [place] | | | GLORIA GENAO OF [employer] | [facility] | [address] | | | TESTS | | | [...] [facility] | [address] | [place], [place] | | | [place] POINT OF GM | [address] | [address] | | | TESTS | | | [...] [facility] | [address] | [place], [place] | | | CARDIOLOGY | [address] | [address] | | + + + + + [...] R[facility] | [address] | [place] | | | GALENA POINT OF CARE | [address] | [address] | | | TESTS | | | [...] | + + + + + | [facility] | [address] | [place] [address] | | | SERVICES, CORE | PARK [...] [facility] | [address] | [place] [address] | | | SERVICES, [facility] | [address] | | | + [...] | | | LABORATORY | | | SYRIAN | | | SERVICES, | | | [...] MDRD equation recommended by the | [facility] | | National Kidney Disease Education [...] + + + + + | [facility] | [address] | [place] [address] | | | SERVICES, CORE | VILMA [...] | 70 - 99 mg/dL | [facility] - | | | GLUCOSE, | [...] [facility] | [address] | [place] | | | GLORIA GENAO OF [facility] | [facility] | [address] | | | TESTS | | | [...] [facility] | [address] | [place] | | | GLORIA GENAO OF GM | [facility] | [address] | | | TESTS | | | [...] + + + + + | [facility] | [address] | [place] | | | GLORIA GENAO OF CARE | [facility] | [address] | | | TESTS | | | [...] | 70 - 99 mg/dL | [facility] - | | | GLUCOSE, | [...] [facility] | [address] | [place], [place] | | | GLORIA GENAO OF [place] | [facility] | [address] | | | TESTS | | | [...] DEPT OF | [address] | [place], [place] | | | CARDIOLOGY | [address] | [address] | | + + + + + [...] [facility] | [address] | [place] [address] | | | SERVICES, CORE | PARK [...] [facility] | [address] | [place] [address] | | | SERVICES, CORE | PARK [...] | | | LABORATORY | | | SYRIAN | | | SERVICES, | | | [...] + + + + + | [facility] | [address] | [place] [address] | | | ELIN, CORE | VILMA [...] - [facility] | [address] | [place], [place] | | | GLORIA GENAO OF CARE | [address] | [address] | | | TESTS | | | [...] [facility] | [address] | [place], [place] | | | [facility]INT OF CARE | [address] | [address] | | | TESTS | | | [...] [facility] | [address] | [place] | | | GLORIA GENAO OF CARE | [address] | [address] | | | TESTS | | | [...] - [facility] | [address] | [place] | | | GLORIA GENAO OF CARE | [address] | [address] | | | TESTS | | | [...] [facility] | [address] | [place], [place] | | | [facility]INT OF CARE | [address] | [address] | | | TESTS | | | [...] | + + + + + | [facility] | [address] | [place] [address] | | | NATALEE WORTHINGTON | VILMA [...] + + + + + | [facility] | [address] | [place] [address] | | | NATALEE WORTHINGTON | VILMA [...] | | | LABORATORY | | | SYRIAN | | | SERVICES, | | | [...] | + + + + + | [facility] | [address] | [place] [address] | | | SERVICES, CORE | VILMA [...] [facility] | [address] | [place] | | | GLORIA GENAO OF GM | [address] | [address] | | | TESTS | | | [...] - [facility] | [address] | [place] | | | GLORIA GENAO OF [facility] | [facility] | [address] | | | TESTS | | | [...] | + + + + + | [facility] | [address] | [place] [address] | | | SERVICES, CORE | PARK [...] by | | | | | | [employer],[address] | | | | | | Rogelio Pickard, [facility],[place] | | | | | | [address] | | | | | | [phone].[employer]. | | | | | | Gui [...] [facility] | [address] | [place], [place] | | | [facility] | | [address] | | + + + + + [...] [facility] | [address] | [place] [address] | | | SERVICES, CORE | PARK [...] [facility] | [address] | [place] [address] | | | SERVICES, CORE | PARK [...] modified from | [facility] | | original residential life director's approved specifications. The performance | LABORATORY | | of the ROUGHER [employer] HIV Combo test, with or without confirmation, was not | SERVICES, | | tested in pediatric patients less than 2 years of age. [facility] | SPECIAL IMM + [...] | + + + + + | [facility] | [address] | [place] [address] | | | ELIN, SPECIAL | [address] | | | [...] | 70 - 99 mg/dL | [facility] - | | | GLUCOSE, | [...] [facility] | [address] | [place], [place] | | | GLORIA GENAO OF CARE | [facility] | [address] | | | TESTS | | | [...] + | [facility] | [address] | [place] | | | GLORIA GENAO OF GM | [address] | [address] | | | TESTS | | | [...] + + + + + | [facility] | [address] | [place] [address] | | | SERVICES, CORE | [address] | | | + + + + + MAGNESIUM, PLASMA (10/03/2017 6:03 AM PDT) + +-------+ + + + | Component | Value | Ref Range | Performed | Pathologist | | | | | At | Signature | + +-------+ + + + | MAGNESIUM,P | 2.0 | 1.6 - 2.6 mg/dL | [facility] | | | [facility] | | | [...] [facility] | [address] | [place] [address] | | | SERVICES, NATALEE | VILMA [...] | | | LABORATORY | | | SYRIAN | | | SERVICES, | | | [...] | + + + + + | [facility] | [address] | [place] [address] | | | NATALEE WORTHINGTON | VILMA [...] [facility] | [address] | [place], [place] | | | [facility] POINT OF CARE | [address] | [address] | | | TESTS | | | [...] [facility] | [address] | [place], [place] | | | [facility]INT OF CARE | [address] | [address] | | | TESTS | | | [...] | | OF | | | | 10-02-2017:43:54 | | CARDIOLOGY | | + + [...] + + + + + | [facility] | [address] | [place], [place] | | | CARDIOLOGY | [address] | [address] | | + + + + + [...] At | + + + | EXAM: NC CHEST 1 VIEW HISTORY: Evaluate PICC placement [...] Interface - 10/02/2017 2:07 PM PDT EXAM: NC CHEST 1 | | VIEW HISTORY: Evaluate [...] [facility] | [address] | [place], [place] | | | [facility] POINT OF CARE | [address] | [address] | | | TESTS | | | | + + + + + X-RAY PORTABLE CHEST 1 VIEW (10/02/2017 8:56 AM PDT) + + | Specimen | + + | | + + + + + | Narrative | Performed At | + + + | EXAM: NC CHEST 1 VIEW HISTORY: new leukocytosis, eval [...] Interface - 10/02/2017 10:27 AM PDT EXAM: NC CHEST 1 | | VIEW HISTORY: new [...] [facility] | [address] | [place], [place] | | | GAL[place] POINT OF [facility] | [facility] | [address] | | | TESTS | | | [...] | + + + + + | [facility] | [address] | [place] [address] | | | SERVICES, CORE | PARK [...] [facility] | [address] | [place] [address] | | | SERVICES, CORE | PARK [...] | | | LABORATORY | | | SYRIAN | | | SERVICES, | | | [...] MDRD equation recommended by the | [facility] | | National Kidney Disease Education [...] + + + + + | [facility] | [address] | [place] [address] | | | SERVICES, CORE | VILMA [...] | 70 - 99 mg/dL | [facility] - | | | GLUCOSE, | [...] [facility] | [address] | [place], [place] | | | GLORIA GENAO OF CARE | [facility] | [address] | | | TESTS | | | [...] [facility] | [address] | [place] | | | GLORIA GENAO OF CARE | [address] | [address] | | | TESTS | | | [...] + + + | [facility] | [address] | [place] | | | CHADWICK WORDEN OF [facility] | [address] | [address] | | | TESTS | | | [...] | [facility] | [address] | [place] | | | [place] POINT OF CARE | [address] | [address] | | | TESTS | | | [...] [facility] | [address] | [place] [address] | | | ELIN, NATALEE | VILMA [...] | + + + + + | [facility] | [address] | [place] [address] | | | SERVICES, CORE | VILMA [...] | | | LABORATORY | | | SYRIAN | | | SERVICES, | | | [...] + + + + + | [facility] | [address] | [place] [address] | | | SERVICES, CORE | VILMA [...] | 70 - 99 mg/dL | [facility] - | | | GLUCOSE, | [...] [facility] | [address] | [place], [place] | | | GLORIA GENAO OF CARE | [address] | [address] | | | TESTS | | | [...] RAPHAELAM | [address] | [place] | | | GLORIA GENAO OF CARE | [address] | [address] | | | TESTS | | | [...] + + + | [facility]NA L[facility] | 481 | ms | [facility] [...] DEPT OF | [address] | [place], [place] | | | CARDIOLOGY | [address] | [address] | | + + + + + [...] [facility] | [address] | [place] | | | GLORIA GENAO OF CARE | [address] | [address] | | | TESTS | | | [...] [facility] | [address] | [place] | | | GLORIA GENAO OF GM | [address] | [address] | | | TESTS | | | [...] + + + + + | [facility] | [address] | [place] [address] | | | SERVICES, CORE | [address] | | | + + + + + MAGNESIUM, PLASMA (09/30/2017 4:43 AM PDT) + +-------+ + + + | Component | Value | Ref Range | Performed | Pathologist | | | | | At | Signature | + +-------+ + + + | MAGNESIUM,P | 2.0 | 1.6 - 2.6 mg/dL | [facility] | | | LASMA | | [...] [facility] | [address] | [place] [address] | | | SERVICES, NATALEE | VILMA [...] | | | LABORATORY | | | SYRIAN | | | SERVICES, | | | [...] | + + + + + | [facility] | [address] | [place] [address] | | | ELIN, NATALEE | VILMA [...] R[facility]EL[facility] | [address] | [place] | | | GLORIA GENAO OF CARE | [facility] | [address] | | | TESTS | | | [...] | 70 - 99 mg/dL | [facility] - | | | GLUCOSE, | [...] R[facility]EL[facility] | [address] | [place] | | | GLORIA GENAO OF CARE | [address] | [address] | | | TESTS | | | [...] [facility] | [address] | [place], [place] | | | GLORIA GENAO OF GM | [facility] | [address] | | | TESTS | | | [...] DEPT OF | [address] | [place], [place] | | | CARDIOLOGY | [address] | [address] | | + + + + + [...] [facility] | [address] | [place] | | | [facility] POINT OF CARE | [address] | [address] | | | TESTS | | | [...] [facility] | [address] | [place] [address] | | | SERVICES, CORE | PARK [...] | | | LABORATORY | | | SYRIAN | | | SERVICES, | | | [...] MDRD equation recommended by the | [facility] | | National Kidney Disease Education [...] [facility] | [address] | [place] [address] | | | SERVICES, CORE | PARK [...] | + + + + + | [facility] | [address] | [place] [address] | | | SERVICES, CORE | VILMA [...] [facility] | [address] | [place] | | | GLORIA GENAO OF [employer] | [address] | [address] | | | TESTS | | | [...] [facility] | [address] | [place] | | | GLORIA GENAO OF GM | [facility] | [address] | | | TESTS | | | [...] | 70 - 99 mg/dL | [facility] - | | | GLUCOSE, | [...] [facility] | [address] | [place], [place] | | | CH[place] POINT OF CARE | [address] | [address] | | | TESTS | | | [...] DEPT OF | [address] | [place], [place] | | | CARDIOLOGY | [address] | [address] | | + + + + + [...] [facility] | [address] | [place] | | | [place] POINT OF CARE | [address] | [address] | | | TESTS | | | [...] | + + + + + | [facility] | [address] | [place] [address] | | | SERVICES, CORE | VILMA [...] | + + + + + | [facility] | [address] | [place] [address] | | | SERVICES, CORE | VILMA [...] | | | LABORATORY | | | SYRIAN | | | SERVICES, | | | [...] MDRD equation recommended by the | [facility] | | National Kidney Disease Education [...] + + + + + | [facility] | [address] | [place] [address] | | | SERVICES, CORE | VILMA [...] (H) | 70 - 99 mg/dL | [facility] - | | | GLUCOSE, | | [...] [facility] | [address] | [place], [place] | | | GLORIA GENAO OF CARE | [address] | [address] | | | TESTS | | | [...] [facility] | [address] | [place], [place] | | | GLORIA GENAO OF CARE | [address] | [address] | | | TESTS | | | [...] [facility] | [address] | [place], [place] | | | [place] POINT OF CARE | [address] | [address] | | | TESTS | | | [...] [facility] | [address] | [place] | | | GLORIA GENAO OF CARE | [address] | [address] | | | TESTS | | | [...] [facility] | [address] | [place] [address] | | | SERVICES, CORE | PARK [...] [facility] | [address] | [place] [address] | | | SERVICES, CORE | PARK [...] | | | LABORATORY | | | SYRIAN | | | SERVICES, | | | [...] the MDRD equation recommended by the | [facility] | | National Kidney Disease Education Program. [...] + + + + + | [facility] | [address] | [place] [address] | | | NATALEE WORTHINGTON | VILMA [...] - [facility] | [address] | [place] | | | [place] POINT OF CARE | [address] | [address] | | | TESTS | | | [...] [facility] | [address] | [place] | | | GLORIA GENAO OF GM | [address] | [address] | | | TESTS | | | [...] DEPT OF | [address] | [place] | | | CARDIOLOGY | [facility] | [address] | | + + + + + CAPILLARY BLOOD GLUCOSE (NO CHG), POC (09/26/2017 12:37 PM PDT) + +-------+ + + + | Component | Value | Ref Range | Performed | Pathologist | | | | | At | Signature | + +-------+ + + + | BLOOD | 88 | 70 - 99 mg/dL | [facility] - | | | GLUCOSE, | [...] [facility] | [address] | [place], [place] | | | [place] [facility] | [address] | [address] | | | TESTS | | | [...] + + | Performing | Address | City[facility]State[facility] | Phone Number | | Organization | | | | + + + + + | [facility] - [facility] | [address] | [place], [place] | | | GLORIA GENAO OF [employer] | [facility] | [address] | | | TESTS | | | [...] - RAPHAELAM | [address] | [place], [place] | | | [place] | [facility] | [address] | | | TESTS | | | [...] | + + + + + | [facility] | [address] | [place] [address] | | | SERVICES, CORE | VILMA [...] [facility] | [address] | [place] [address] | | | SERVICES, CORE | PARK [...] | | | LABORATORY | | | SYRIAN | | | SERVICES, | | | [...] [facility] | [address] | [place] [address] | | | NATALEE WORTHINGTON | VILMA [...] | 70 - 99 mg/dL | [facility] - | | | GLUCOSE, | [...] + + + | SELENA PICKETT | [address] | [place], [place] | | | GLORIA GENAO OF [facility] | [address] | [address] | | | TESTS | | | [...] Note | + + | Service Account, [employer] In Interface - 09/25/2017 12:32 PM [...] [facility] | [address] | [place] [address] | | | SERVICES, CORE | PARK [...] [facility] | [address] | [place] [address] | | | SERVICES, CORE [...] | | | LABORATORY | | | SYRIAN | | | SERVICES, | | | [...] MDRD equation recommended by the | [facility] | | National Kidney Disease Education [...] + + + + + | [facility] | [address] | [place] [address] | | | NATALEE WORTHINGTON | PARK [...] DEPT OF | [address] | [place], [place] | | | CARDIOLOGY | [address] | [address] | | + + + + + [...] MD 09/24/2017 2:43 PM Preliminary: Prabhakar Trejo MD | | Fluoro Time 55 second(s) [...] Note | + + | Service Account, [employer] In Interface - 09/24/2017 4:09 PM PDT [...] + + + + + | [facility] | [address] | [place] [address] | | | SERVICES, CORE | VILMA [...] | | | LABORATORY | | | SYRIAN | | | SERVICES, | | | [...] MDRD equation recommended by the | [facility] | | National Kidney Disease Education [...] [facility] | [address] | [place] [address] | | | SERVICES, CORE | PARK [...] | + + + + + | [facility] | [address] | [place] [address] | | | SERVICES, CORE | PARK [...] | + + + + + | [facility] | [address] | [place] [address] | | | NATALEE WORTHINGTON | PARK [...] + + + + + | [facility] | [address] | [place] [address] | | | NATALEE WORTHINGTON | PARK [...] | | | LABORATORY | | | SYRIAN | | | SERVICES, | | | [...] | + + + + + | [facility] | [address] | [place] [address] | | | SERVICES, CORE | VILMA [...] [facility] | [address] | [place], [place] | | | GLORIA GENAO OF [facility] | [address] | [address] | | | TESTS | | | [...] SELENA PICKETT | [address] | [place], [place] | | | CHAD[place]ICK WORDEN OF [facility] | [address] | [address] | | | TESTS | | | [...] | + + + + + | [facility] | [address] | [address] [place] [address] | | | SERVICES, CORE | VILMA [...] + + + + | [facility] | 445 | ms | [facility] [...] + + | [facility] | [address] | [place], [place] | | | CARDIOLOGY | [address] | [address] | | + + + + + [...] + + + + + | [facility] | [address] | [place] [address] | | | SERVICES, CORE | [address] | | | + + + + + MAGNESIUM, PLASMA (09/22/2017 5:48 AM PDT) + +-------+ + + + | Component | Value | Ref Range | Performed | Pathologist | | | | | At | Signature | + +-------+ + + + | MAGNESIUM,P | 1.9 | 1.6 - 2.6 mg/dL | [facility] | | | LASMA | | [...] [facility] | [address] | [place] [address] | | | SERVICES, NATALEE | VILMA [...] | | | LABORATORY | | | SYRIAN | | | SERVICES, | | | [...] 7 | 4 - 11 mmol/L | [facility] [...] | + + + + + | [facility] | [address] | [place] [address] | | | SERVICES, NATALEE | VILMA [...] [facility] | [address] | [place], [place] | | | [place], POINT OF CARE | [address] | [address] | | | TESTS | | | [...] + + + + + | [facility] | [address] | [place] [address] | | | NATALEE WORTHINGTON | VILMA [...] | + + + + + | [facility] | [address] | [place] [address] | | | SERVICES, CORE | PARK [...] | | | LABORATORY | | | SYRIAN | | | SERVICES, | | | [...] + + + + + | [facility] | [address] | [place] [address] | | | SERVICES, CORE | VILMA [...] | + +---------+ + + | [facility] | | | | | [...] | Kostas Reynolds Res In Interface - 09/20/2017 6:25 PM [...] Note | + + | Service Account, [employer]Place Res In Interface - 09/20/2017 6:26 PM [...] Note | + + | Service Account, Kisstixx In Interface - 09/20/2017 5:17 PM PDT [...] DEPT OF | [address] | [place], [place] | | | CARDIOLOGY | [address] | [address] | | + + + + + [...] + + + + + | [facility] | [address] | [place] [address] | | | SERVICES, CORE | PARK [...] + | [facility] | [address] | [place] [address] | | | SERVICES, CORE | PARK [...] | | | LABORATORY | | | SYRIAN | | | SERVICES, | | | [...] | + + + + + | [facility] | [address] | [place] [address] | | | NATALEE WORTHINGTON | VILMA [...] + + + + + | [facility] | [address] | [place] [address] | | | ELIN, NATALEE | PARK [...] [facility] | [address] | [place] [address] | | | NATALEE WORTHINGTON | PARK [...] | | | LABORATORY | | | SYRIAN | | | SERVICES, | | | [...] | + + + + + | [facility] | [address] | [place] [address] | | | NATALEE WORTHINGTON | VILMA [...] + + + + + | [facility] | [address] | [place] [address] | | | SERVICES, CORE | PARK [...] [facility] | [address] | [place] [address] | | | SERVICES, CORE | PARK [...] | | | LABORATORY | | | SYRIAN | | | SERVICES, | | | [...] | + + + + + | [facility] | [address] | [place] [address] | | | SERVICES, NATALEE | VILMA [...] Note | + + | Service Account, Kisstixx In Interface - 09/17/2017 11:53 AM PDT [...] | + + + + + | [facility] | [address] | [place] [address] | | | SERVICES, CORE | VILMA [...] + + + + + | [facility] | [address] | [place] [address] | | | SERVICES, CORE | PARK [...] | | | LABORATORY | | | SYRIAN | | | SERVICES, | | | [...] MDRD equation recommended by the | [facility] | | National Kidney Disease Education [...] + + + + + | [facility] | [address] | [place] [address] | | | SERVICES, CORE | [address] | | | + + + + + X-RAY PORTABLE CHEST PICC LINE CHECK (09/16/2017 1:11 PM PDT) + + | Specimen | + + | | + + + + + | Narrative | Performed At | + + + | EXAM: NC CHEST PICC LINE CHECK HISTORY: PICC placement | [facility] | | COMPARISON: Earlier today FINDINGS: Left [...] Note | + + | Service Account, K[employer] In Interface - 09/16/2017 1:34 PM PDT EXAM: NC CHEST | | PICC LINE CHECK HISTORY: [...] | + +---------+ + + | [facility] | | | | | VOICE RECOGNITION | | | | + +---------+ + + X-RAY PORTABLE CHEST PICC LINE CHECK (09/16/2017 11:06 AM PDT) + + | Specimen | + + | | + + + + + | Narrative | Performed At | + + + | EXAM: NC CHEST PICC LINE CHECK HISTORY: Evaluate PICC [...] Note | + + | Service Account, [employer] Res In Interface - 09/16/2017 11:41 AM PDT EXAM: NC CHEST | | PICC LINE CHECK HISTORY: [...] | + + + + + | [facility] | [address] | [place] [address] | | | SERVICES, CORE | VILMA [...] + | [facility] | [address] | [place] [address] | | | SERVICES, CORE | PARK [...] | | | LABORATORY | | | SYRIAN | | | SERVICES, | | | [...] the MDRD equation recommended by the | [facility] | | National Kidney Disease Education Program. [...] | + + + + + | [facility] | [address] | [place] [address] | | | SERVICES, [facility] | [address] | | | + + + + + X-RAY PORTABLE CHEST 1 VIEW (09/15/2017 3:28 PM PDT) + + | Specimen | + + | | + + + + + | Narrative | Performed At | + + + | EXAM: NC CHEST 1 VIEW HISTORY: COMPARISON: None. | [...] Interface - 09/15/2017 6:45 PM PDT EXAM: NC CHEST 1 | | VIEW HISTORY: COMPARISON: [...] At | + + + | EXAM: NC CHEST PICC LINE CHECK HISTORY: PICC COMPARISON: [...] Interface - 09/15/2017 6:43 PM PDT EXAM: NC CHEST | | PICC LINE CHECK HISTORY: [...] Note Indications:TPN Procedure | | | location: Unit:[facility] Room: #12 Providers: Attending name: [...] | pause verifies correct patient, procedure, equipment, business support | | | and site/side marked [...] | area Basilic vein. Catheter lot number: [id number] with a length of 55 | | [...] [facility] | [address] | [place] [address] | | | SERVICES, CORE | PARK [...] [facility] | [address] | [place] [address] | | | SERVICES, CORE | PARK [...] | | | LABORATORY | | | SYRIAN | | | SERVICES, | | | [...] MDRD equation recommended by the | [facility] | | National Kidney Disease Education [...] + + + + + | [facility] | [address] | [place] [address] | | | SERVICES, [facility] | [address] | | | + [...] + + + + + | [facility] | [address] | [place] [address] | | | NATALEE WORTHINGTON | VILMA [...] | + + + + + | [facility] | [address] | [place] [address] | | | SERVICES, CORE | PARK [...] | | | LABORATORY | | | SYRIAN | | | SERVICES, | | | [...] [facility] | [address] | [place] [address] | | | SERVICES, CORE | PARK [...] + + + + + | [facility] | [address] | [place] [address] | | | NATALEE WORTHINGTON | VILMA [...] | + + + + + | [facility] | [address] | [place] [address] | | | SERVICES, CORE | PARK [...] | | | LABORATORY | | | SYRIAN | | | SERVICES, | | | [...] | + + + + + | [facility] | [address] | [place] [address] | | | SERVICES, CORE | VILMA [...] Note | + + | Service Account, [employer] Res In Interface - 09/12/2017 9:13 AM [...] + + + + + | [facility] | [address] | [place] [address] | | | SERVICES, CORE | [address] | | | + + + + + MAGNESIUM, PLASMA (09/12/2017 6:33 AM PDT) + +-------+ + + + | Component | Value | Ref Range | Performed | Pathologist | | | | | At | Signature | + +-------+ + + + | MAGNESIUM,P | 2.3 | 1.6 - 2.6 mg/dL | [facility] | | | [facility] | | | [...] [facility] | [address] | [place] [address] | | | SERVICES, NATALEE | VILMA [...] | | | LABORATORY | | | SYRIAN | | | SERVICES, | | | [...] | + + + + + | [facility] | [address] | [place] [address] | | | SERVICES, NATALEE | VILMA [...] + + + + + | [facility] | [address] | [place] [address] | | | NATALEE WORTHINGTON | VILMA [...] + + + + + | [facility] | [address] | [place] [address] | | | SERVICES, NATALEE | PARK [...] | | | LABORATORY | | | SYRIAN | | | SERVICES, | | | [...] | + + + + + | [facility] | [address] | [place] [address] | | | SERVICES, CORE | PARK [...] + + + + + | [facility] | [address] | [place] [address] | | | SERVICES, [facility] | [address] | | | + + + + + X-RAY ABD LTD FEEDING TUBE EVAL (09/10/2017 12:44 PM PDT) + + | Specimen | + + | | + + + + + | Narrative | Performed At | + + + | INDICATION: DHT placement TECHNIQUE: Upright portable view of | [facility] | | the upper abdomen. Comparison: 09/09/2017 [...] now presented. Final signature: Prabhakar Trejo | Prabhakar CABRERA 09/10/2017 2:08 PM Created by: Edelmira Parsons [...] Account, Radiant Res In Interface - 09/10/2017 2:31 PM [...] At | + + + | STUDY: NC CHEST 1 VIEW 09/10/17 07:02:01 HISTORY: Possible [...] Interface - 09/10/2017 9:25 AM PDT STUDY: NC CHEST 1 | | VIEW 09/10/17 07:02:01 [...] | + + + + + | [facility] | [address] | [place] [address] | | | SERVICES, CORE | VILMA [...] [facility] | [address] | [place] [address] | | | SERVICES, CORE | PARK [...] + + + + + | [facility] | [address] | [place] [address] | | | SERVICES, CORE | [address] | | | + + + + + MAGNESIUM, PLASMA (09/10/2017 5:08 AM PDT) + +-------+ + + + | Component | Value | Ref Range | Performed | Pathologist | | | | | At | Signature | + +-------+ + + + | MAGNESIUM,P | 2.1 | 1.6 - 2.6 mg/dL | [facility] | | | [facility] | | | [...] [facility] | [address] | [place] [address] | | | SERVICES, CORE | PARK [...] | | | LABORATORY | | | SYRIAN | | | SERVICES, | | | [...] + + | Performing | Address | City/State[facility] | Phone Number | | Organization | | | | + + + + + | [facility] | [address] | [place] [address] | | | ELIN, NATALEE | VILMA [...] + + + + | [facility] | [address] | ms | [facility] [...] DEPT OF | [address] | [place], [place] | | | CARDIOLOGY | [address] | [address] | | + + + + + [...] Note | + + | Service Account, K[employer] In Interface - 09/10/2017 11:11 AM PDT [...] [facility] | [address] | [place], [place] | | | GLORIA GENAO OF [employer] | [address] | [address] | | | TESTS | | | [...] | + + + + + | [facility] | [address] | [place] [address] | | | SERVICES, CORE | PARK [...] [facility] | [address] | [place] [address] | | | NATALEE WORTHINGTON | VILMA [...] | | | LABORATORY | | | SYRIAN | | | SERVICES, | | | [...] | + + + + + | [facility] | [address] | [place] [address] | | | SERVICES, CORE | VILMA [...] [facility] | [address] | [place] [address] | | | SERVICES, CORE | PARK [...] | | | LABORATORY | | | SYRIAN | | | SERVICES, | | | [...] the MDRD equation recommended by the | [facility] | | National Kidney Disease Education Program. [...] + + | Performing | Address | City/State[facility] | Phone Number | | Organization | | | | + + + + + | [facility] | [address] | [place] [address] | | | NATALEE WORTHINGTON | VILMA [...] [facility] | [address] | [place] [address] | | | SERVICES, CORE | PARK [...] | + + + + + | [facility] | [address] | [place] [address] | | | SERVICES, CORE | VILMA [...] Interface - 09/08/2017 10:56 AM PDT EXAM: EL LTD | | FEEDING TUBE EVAL 09/08/17 [...] + + + + + + | [facility] | 473 | ms | [facility] [...] DEPT OF | [address] | [place], [place] | | | CARDIOLOGY | [address] | [address] | | + + + + + X-RAY PORTABLE CHEST 1 VIEW (09/07/2017 6:12 AM PDT) + + | Specimen | + + | | + + + + + | Narrative | Performed At | + + + | EXAM: NC CHEST 1 VIEW HISTORY: Post extubation COMPARISON: [...] Note | + + | Service Account, [employer] Res In Interface - 09/07/2017 10:46 AM PDT EXAM: NC CHEST 1 | | VIEWHISTORY: Post extubationCOMPARISON: [...] | + + + + + | [facility] | [address] | [place] [address] | | | SERVICES, CORE | VILMA [...] | | | LABORATORY | | | SYRIAN | | | SERVICES, | | | [...] + + + + + | [facility] | [address] | [place] [address] | | | SERVICES, CORE | VILMA [...] + + + + + | [facility] | [address] | [place] [address] | | | SERVICES, [facility] | [address] | | | + + + + + X-RAY EL PEÑA FEEDING TUBE EVAL (09/06/2017 8:04 PM PDT) + + | Specimen | + + | | + + + + + | Narrative | Performed At | + + + | EXAM: ABD LTD FEEDING TUBE EVAL 09/06/17 19:27:59 COMPARISON: | [facility] | | 09/06/17 earlier on the same [...] Note | + + | Service Account, [employer] In Interface - 09/07/2017 10:46 AM PDT [...] DEPT OF | [address] | [place], [place] | | | CARDIOLOGY | [address] | [address] | | + + + + + [...] | | | attempt. Midline lot number [id number]; there was positive blood | | | [...] | | | LABORATORY | | | SYRIAN | | | SERVICES, | | | [...] + + + + + | [facility] | [address] | [place] [address] | | | SERVICES, CORE | [address]ARK [...] to administering the 01:30 dose on | [facility] | | 09/06, thanks! | LABORATORY | | | NATALEE WORTHINGTON | + + + + + + + + | Performing | Address | City/State/Zipcode | Phone Number | | Organization | | | | + + + + + | [facility] | [address] | [place] [address] | | | NATALEE WORTHINGTON | [address] | | | + + + + + X-RAY PORTABLE CHEST 1 VIEW (09/05/2017 5:33 AM PDT) + + | Specimen | + + | | + + + + + | Narrative | Performed At | + + + | EXAM: NC CHEST 1 VIEW HISTORY: Evaluation after chest [...] Interface - 09/05/2017 10:16 AM PDT EXAM: NC CHEST 1 | | VIEW HISTORY: Evaluation [...] | + + + + + | [facility] | [address] | [place] [address] | | | SERVICES, CORE | VILMA [...] [facility] | [address] | [place] [address] | | | SERVICES, CORE | PARK [...] | | | LABORATORY | | | SYRIAN | | | SERVICES, | | | [...] the MDRD equation recommended by the | [facility] | | National Kidney Disease Education Program. [...] + | [facility] | [address] | [place] [address] | | | SERVICES, CORE [...] | | | LABORATORY | | | SYRIAN | | | SERVICES, | | | [...] MDRD equation recommended by the | [facility] | | National Kidney Disease Education [...] + + + + + | [facility] | [address] | [place] [address] | | | NATALEE WORTHINGTON | [address] [...] tomorrow morning. CB Henson Pager / ID: [phone] | | + + + CULTURE, SPUTUM [...] seen | [facility] - | | | [place] | + + + + + + + + | Performing | Address | City/State/Zipcode | Phone Number | | Organization | | | | + + + + + | [facility] - | [address] | [place] [address] | | | [place] | | | | + + + [...] | + + + + + | [facility] | [address] | [place] [address] | | | SERVICES, CORE [...] | [facility] | | | GRAVITY | Butler performed by | | LABORATORY | | [...] | + + + + + | [facility] | [address] | [place] [address] | | | SERVICES, NATALEE | VILMA [...] [facility] | [address] | [place] [address] | | | SERVICES, CORE | [address] | | | + + + + + CULTURE, BLOOD BACTI & YEAST [facility] (09/04/2017 1:16 PM PDT) + + + [...] | + + + + + | [facility] | [address] | [place] [address] | | | SERVICES, CORE | VILMA [...] [facility] | [address] | [place], [place] | | | CARDIOLOGY | [address] | [address] | | + + + + + X-RAY PORTABLE CHEST 1 VIEW (09/04/2017 7:04 AM PDT) + + | Specimen | + + | | + + + + + | Narrative | Performed At | + + + | EXAM: NC CHEST 1 VIEW HISTORY: Hypoxia. Intubated. | [...] Interface - 09/04/2017 9:49 AM PDT EXAM: NC CHEST 1 | | VIEW HISTORY: Hypoxia. [...] | + +---------+ + + | [facility] | | | | | [...] [facility] | [address] | [place] [address] | | | SERVICES, CORE | PARK [...] [facility] | [address] | [place] [address] | | | SERVICES, CORE | [address] [...] | | | LABORATORY | | | SYRIAN | | | SERVICES, | | | [...] MDRD equation recommended by the | [facility] | | National Kidney Disease Education [...] + + + + + | [facility] | [address] | [place] [address] | | | SERVICES, CORE | [address] [...] | + + + + + | [facility] | [address] | [place] [address] | | | NATALEE WORTHINGTON | PARK [...] [facility] | [address] | [place] | | | GLORIA GENAO OF CARE | [facility] | [address] | | | TESTS | | | | + + + + + CAPILLARY BLOOD GLUCOSE (NO CHG), POC (09/04/2017 12:17 AM PDT) + +-------+ + + + | Component | Value | Ref Range | Performed | Pathologist | | | | | At | Signature | + +-------+ + + + | BLOOD | 72 | 70 - 99 mg/dL | [facility] - | | | GLUCOSE, | [...] [facility] | [address] | [place], [place] | | | GLORIA GENAO OF CARE | [address] | [address] | | | TESTS | | | [...] [facility] | [address] | [place], [place] | | | GLORIA GENAO OF [employer] | [facility] | [address] | | | TESTS | | | [...] [facility] | [address] | [place], [place] | | | HILL, POINT OF CARE | [address] | [address] | | | TESTS | | | [...] Note | + + | Service Account, [employer] In Interface - 09/03/2017 10:27 AM PDT [...] + | [facility] | [address] | [place] [address] | | | [place] | | | [...] | + + + + + | [facility] | [address] | [place] [address] | | | SERVICES, CORE | [address] [...] Note | + + | Service Account, [employer] In Interface - 09/03/2017 9:54 AM PDT [...] + | [facility] | [address] | [place] [address] | | | [place] | | | [...] | + + + + + | [facility] | [address] | [place] [address] | | | SERVICES, CORE | VILMA [...] | + + + + + | [facility] | [address] | [place] [address] | | | SERVICES, CORE | VILMA [...] | | | LABORATORY | | | SYRIAN | | | SERVICES, | | | [...] + + + + + | [facility] | [address] | [place] [address] | | | SERVICES, CORE | PARK [...] + | [facility] | [address] | [place] [address] | | | SERVICES, [facility] | [address] | | | + + + + + OPERATION RECORD (09/02/2017 6:53 PM PDT) + + | Procedure Note | + + | Fidelina Shields MD - 09/02/2017 6:53 PM PDT Date of Service: 09/02/2017 | | Attending Surgeon: Fidelina Shields MD Pump House Technician(s): | | Ajay Garcia MD, resident. Preoperative [...] was transferred to the ICU in stable condition.Ajya Garcia, | | MDMashona Shields MDTBK/MODLDD: 09/02/2017 18:15:29DT: 09/02/2017 18:53:52Job #: | | [id number] to federal Medicare and Medicaid regulations I was present for | | the entire procedure.Fidelina Shields MDAssistanbrice ProfessorDepartment of SurgeryOffice: | | [phone]: [id number] has been electronically signed by Fidelina Shields MD, | | 09/03/2017 at 9:11 AM. | | | | | |Fidelina Shields MD | |[facility] | |Department of Surgery | |Office: [phone] | |Pager: [phone] | | | |This has been electronically [...] + | [facility] | [address] | [place] [address] | | | SERVICES, CORE | [address]ARK [...] | + + + + + | [facility] | [address] | [place] [address] | | | SERVICES, CORE | [address] [...] + | [facility] - | [address] | [place] [address] | | | [place] | | | [...] | + + + + + | [facility] | [address] | [place] [address] | | | NATALEE WORTHINGTON | [address] [...] | | | LABORATORY | | | SYRIAN | | | SERVICES, | | | | | | CORE | | + + + + + + | EGFR NON | >60 | >60 mL/min | [facility] | | | -[facility] | | | LABORATORY | | | [...] | + + + + + | [facility] | [address] | [place] [address] | | | SERVICES, CORE | [address] [...] Note | + + | Service Account, [employer] Res In Interface - 09/02/2017 4:25 PM [...] | | | contact: INGRID Garcia, Surgery [phone] Pursuant | | | to federal Medicare and Medicaid regulations I was present for the | | | entire procedure. Fidelina Shields MD [facility] | | | Department of Surgery Office: [phone] Pager: [phone] This has | | | been electronically [...] [facility] | [address] | [place] [address] | | | SERVICES, CORE | VILMA [...] [facility] | [address] | [place] [address] | | | SERVICES, NATALEE | [address] | | | + + + + + OPERATION RECORD (09/02/2017 6:51 AM PDT) + ---+ | Procedure Note | + ---+ | Fideilna Shields MD - 09/02/2017 6:51 AM PDT Date of Service: 09/01/2017 | | Attending Surgeon: Fidelina Shields MD Pump House Technician(s): Haim Peralta MD. | | Ajay Garcia [...] 09/02/2017 06:17:53DT: 09/02/2017 | | 06:51:37Job #: [id number] to federal Medicare and Medicaid regulations I | | was present for the entire procedure.Fidelina Shields MDAssdioni ProfessorDepartment of | | SurgeryOffice: [phone]: [id number] has been electronically signed by Fidelina Radford | MD Cornelius, 09/02/2017 at 10:40 AM. | | | | | |Pursuant to federal Medicare and Medicaid regulations I was present for the entire procedur e. | | | | | | | |Fidelina Shields MD | |[employer] | |Department of Surgery | |Office: [phone] | |Pager: [phone] | | | |This has been electronically [...] + | [facility] | [address] | [place] [address] | | | SERVICES, CORE | PARK [...] | + + + + + | [facility] | [address] | [place] [address] | | | SERVICES, CORE | VILMA [...] + + + + | PRODUCT | [id number] | | [facility] | | | UNIT [...] + + + + | EXPIRATION | [id number] | | [facility] | | | DATE [...] + + + + | BLOOD | [id number] | | [facility] | | | PRODUCT [...] | + + + + + | [facility] | [address] | [place] [address] | | | SERVICES, | [address] [...] | + + + + + | [facility] | [address] | [place] [address] | | | SERVICES, CORE | VILMA [...] | | | LABORATORY | | | SY[facility]AN | | | SERVICES, | | | [...] + + + + + | [facility] | [address] | [place] [address] | | | SERVICES, CORE | PARK [...] [facility] | [address] | [place] [address] | | | SERVICES, NATALEE | VILMA [...] | | | | INFORMATION: | | [place] | | | | [employer] | [...] (http://www.cdc.gov/mmwr | | | | | | /preview/mmwrhtml/[email or web address] | | | | | | [email or web address].htm), [...] [facility] - | | | | by [employer], | | AIRPORT - | | | | | | [place] | | | | [address] | | | | | | [address] [facility] [place],[place] | | | | | | [id number] | | | | | | | | | | | | [email or web address] | | | | | | [...] + | [facility] - | [address] | [place] [address] | | | [place] | | | | + + + [...] [facility] | [address] | [place] [address] | | | SERVICES, CORE | PARK [...] | + + + + + | [facility] | [address] | [place] [address] | | | SERVICES, CORE | VILMA [...] Note | + + | Service Account, [employer] In Interface - 09/02/2017 8:55 AM PDT [...] At | + + + | EXAM: NC CHEST 1 VIEW HISTORY: Hypoxemia COMPARISON: 09/01/17 [...] Interface - 09/02/2017 10:34 AM PDT EXAM: NC CHEST 1 | | VIEW HISTORY: HypoxemiaCOMPARISON: [...] + + | Performing | Address | City/State[facility] | Phone Number | | [...] [facility] | [address] | [place] [address] | | | SERVICES, CORE | PARK [...] [facility] | [address] | [place] [address] | | | SERVICES, CORE | PARK [...] + + + + | PRODUCT | [id number] | | [facility] | | | UNIT [...] + + + + | EXPIRATION | [id number] | | [facility] | | | DATE [...] + + + + | BLOOD | [id number] | | [facility] | | | PRODUCT [...] [facility] | [address] | [place] [address] | | | SERVICES, | [address] [...] + + + + + | [facility] | [address] | [place] [address] | | | SERVICES, CORE | PARK [...] + | [facility] | [address] | [place] [address] | | | SERVICES, NATALEE | VILMA [...] | + + + + + | [facility] | [address] | [place] [address] | | | SERVICES, CORE | VILMA [...] | | | LABORATORY | | | [facility] | | | SERVICES, | | | [...] | + + + + + | [facility] | [address] | [place] [address] | | | SERVICES, NATALEE | VILMA [...] + + + + + | [facility] | [address] | [place] [address] | | | NATALEE WORTHINGTON | VILMA [...] | + + + + + | [facility] | [address] | [place] [address] | | | SERVICES, CORE | VILMA [...] micropuncture access set was exchanged for a WelVU wire. Under | | | fluoroscopic guidance, a 5 Fr flush catheter was used to evaluate the | | | distal abdominal aorta and pelvic vasculature. A wire and catheter | | | were then used to select the left common and internal iliac arteries | | | from the right MANAGER PRIMARY CARE approach. DSA was performed from the left [...] micropuncture access set was exchanged for a WelVU wire. Under fluoroscopic guidance, | | a 5 Fr flush catheter was used to evaluate the distal abdominal aorta and pelvic | | vasculature. A wire and catheter were then used to select the left common and internal | | iliac arteries from the right MANAGER PRIMARY CARE approach. DSA was performed from the left [...] micropuncture access set was exchanged for a PinPayson wire. Under fluoroscopic guidance, a 5 Fr flush catheter was used | |to evaluate the distal abdominal aorta and pelvic vasculature. A wire and catheter were th en used to select the left common and internal iliac arteries from the right MANAGER PRIMARY CARE approach. DSA was performed from the left [...] | | + +---------+ + + ABG-FULL CHIVO POC (09/01/2017 1:36 PM PDT) + + [...] [facility] | | | | | | [place] | | [...] [facility] | [address] | [place], [place] | | | [employer] | [address] | [address] | | | TESTS | | | | + + + + + EXPLORATORY LAPAROTOMY (09/01/2017 12:31 PM PDT) + + + | Narrative | Performed At | + + + | Fidelina Shields MD 09/01/2017 12:42 PM BRIEF OPERATIVE NOTE: | | | Date: 09/01/2017 Author: Fidelina Shields MD | | | Attending Physician: Fidelina Shields MD Pump House Technician(s): Haim Peralta | | | , Vicente Garcia MD, [facility] Prior to the | | | [...] case. | | | Fidelina Shields MD [facility] Division of Trauma, | | | Critical Care and Acute Care Surgery Office: [phone] Pager: | | | [phone] | | + + + ABG-FULL ABL, [...] + + + | [facility] | [address] | [place], [place] | | | [employer] | [address] | [address] | | | TESTS | | | [...] + + + + + | [facility] | [address] | [place] [address] | | | SERVICES, CORE | [address] | | | + + + + + ABDwight-FULL ABL POC (09/01/2017 11:04 AM PDT) + + [...] [facility] | [address] | [place], [place] | | | [place]ARE | [address] | [address] | | | TESTS | | | [...] + + + + | PRODUCT | [id number] | | [facility] | | | UNIT [...] + + + + | EXPIRATION | [id number] | | [facility] | | | DATE [...] + + + + | BLOOD | [id number] | | [facility] | | | PRODUCT [...] [facility] | [address] | [place] [address] | | | SERVICES, | [address] [...] + + + + | PRODUCT | [id number] | | [facility] | | | UNIT [...] + + + + | EXPIRATION | [id number] | | [facility] | | | DATE [...] + + + + | BLOOD | [id number] | | [facility] | | | PRODUCT [...] [facility] | [address] | [place] [address] | | | SERVICES, | [address] [...] + + + + | PRODUCT | [id number] | | [facility] | | | UNIT [...] + + + + | EXPIRATION | [id number] | | [facility] | | | DATE [...] + + + + | BLOOD | [id number] | | [facility] | | | PRODUCT [...] [facility] | [address] | [place] [address] | | | SERVICES, | [address] [...] + + + + | PRODUCT | [id number] | | [facility] | | | UNIT [...] + + + + | EXPIRATION | [id number] | | [facility] | | | DATE [...] + + + + | BLOOD | [id number] | | [facility] | | | PRODUCT [...] | + + + + + | [facility] | [address] | [place] [address] | | | SERVICES, | [address] [...] + + + + | PRODUCT | [id number] | | [facility] | | | UNIT [...] + + + + | EXPIRATION | [id number] | | [facility] | | | DATE [...] + + + + | BLOOD | [id number] | | [facility] | | | PRODUCT [...] | + + + + + | [facility] | [address] | [place] [address] | | | SERVICES, | [address] [...] + + + + | PRODUCT | [id number] | | [facility] | | | UNIT [...] + + + + | EXPIRATION | [id number] | | [facility] | | | DATE [...] + + + + | BLOOD | [id number] | | [facility] | | | PRODUCT [...] | + + + + + | [facility] | [address] | [place] [address] | | | SERVICES, | [address] [...] + + + + | PRODUCT | [id number] | | [facility] | | | UNIT [...] + + + + | EXPIRATION | [id number] | | [facility] | | | DATE [...] + + + + | BLOOD | [id number] | | [facility] | | | PRODUCT [...] | + + + + + | [facility] | [address] | [place] [address] | | | SERVICES, | [address] [...] + + + + | PRODUCT | [id number] | | [facility] | | | UNIT [...] + + + + | EXPIRATION | [id number] | | [facility] | | | DATE [...] + + + + | BLOOD | [id number] | | [facility] | | | PRODUCT [...] [facility] | [address] | [place] [address] | | | SERVICES, | [address] [...] + + + + | PRODUCT | [id number] | | [facility] | | | UNIT [...] + + + + | EXPIRATION | [id number] | | [facility] | | | DATE [...] + + + + | BLOOD | [id number] | | [facility] | | | PRODUCT [...] [facility] | [address] | [place] [address] | | | SERVICES, | [address] [...] + + + + | PRODUCT | [id number] | | [facility] | | | UNIT [...] + + + + | EXPIRATION | [id number] | | [facility] | | | DATE [...] + + + + | BLOOD | [id number] | | [facility] | | | PRODUCT [...] [facility] | [address] | [place] [address] | | | SERVICES, | [address] [...] + + + + | PRODUCT | [id number] | | [facility] | | | UNIT [...] + + + + | EXPIRATION | [id number] | | [facility] | | | DATE [...] + + + + | BLOOD | [id number] | | [facility] | | | PRODUCT [...] [facility] | [address] | [place] [address] | | | SERVICES, | [address] [...] + + + + | PRODUCT | [id number] | | [facility] | | | UNIT [...] + + + + | EXPIRATION | [id number] | | [facility] | | | DATE [...] + + + + | BLOOD | [id number] | | [facility] | | | PRODUCT [...] [facility] | [address] | [place] [address] | | | SERVICES, | [...] + + + + | PRODUCT | [id number] | | [facility] | | | UNIT [...] + + + + | EXPIRATION | [id number] | | [facility] | | | DATE [...] + + + + | BLOOD | [id number] | | [facility] | | | PRODUCT [...] | + + + + + | [facility] | [address] | [place] [address] | | | SERVICES, | [address] [...] + + + + | PRODUCT | [id number] | | [facility] | | | UNIT [...] + + + + | EXPIRATION | [id number] | | [facility] | | | DATE [...] + + + + | BLOOD | [id number] | | [facility] | | | PRODUCT [...] | + + + + + | [facility] | [address] | [place] [address] | | | SERVICES, | [address] [...] + + + + | PRODUCT | [id number] | | [facility] | | | UNIT [...] + + + + | EXPIRATION | [id number] | | [facility] | | | DATE [...] + + + + | BLOOD | [id number] | | [facility] | | | PRODUCT [...] | + + + + + | [facility] | [address] | [place] [address] | | | SERVICES, | [address] [...] + + + + | PRODUCT | [id number] | | [facility] | | | UNIT [...] + + + + | EXPIRATION | [id number] | | [facility] | | | DATE [...] + + + + | BLOOD | [id number] | | [facility] | | | PRODUCT [...] | + + + + + | [facility] | [address] | [place] [address] | | | SERVICES, | [address] [...] + + + + | PRODUCT | [id number] | | [facility] | | | UNIT [...] + + + + | EXPIRATION | [id number] | | [facility] | | | DATE [...] + + + + | BLOOD | [id number] | | [facility] | | | PRODUCT [...] + + + + + | [facility] | [address] | [place] [address] | | | SERVICES, | [address] [...] + + + + | PRODUCT | [id number] | | [facility] | | | UNIT [...] + + + + | EXPIRATION | [id number] | | [facility] | | | DATE [...] + + + + | BLOOD | [id number] | | [facility] | | | PRODUCT [...] [facility] | [address] | [place] [address] | | | SERVICES, | [address] [...] + + + + | PRODUCT | [id number] | | [facility] | | | UNIT [...] + + + + | EXPIRATION | [id number] | | [facility] | | | DATE [...] + + + + | BLOOD | [id number] | | [facility] | | | PRODUCT [...] [facility] | [address] | [place] [address] | | | SERVICES, | [address] [...] + + + + | PRODUCT | [id number] | | [facility] | | | UNIT [...] + + + + | EXPIRATION | [id number] | | [facility] | | | DATE [...] + + + + | BLOOD | [id number] | | [facility] | | | PRODUCT [...] [facility] | [address] | [place] [address] | | | SERVICES, | [address] [...] + + + + | PRODUCT | [id number] | | [facility] | | | UNIT [...] + + + + | EXPIRATION | [id number] | | [facility] | | | DATE [...] + + + + | BLOOD | [id number] | | [facility] | | | PRODUCT [...] [facility] | [address] | [place] [address] | | | SERVICES, | [address] [...] + + + + | PRODUCT | [id number] | | [facility] | | | UNIT [...] + + + + | EXPIRATION | [id number] | | [facility] | | | DATE [...] + + + + | BLOOD | [id number] | | [facility] | | | PRODUCT [...] [facility] | [address] | [place] [address] | | | SERVICES, | [address] [...] + + + + | PRODUCT | [id number] | | [facility] | | | UNIT [...] + + + + | EXPIRATION | [id number] | | [facility] | | | DATE [...] + + + + | BLOOD | [id number] | | [facility] | | | PRODUCT [...] [facility] | [address] | [place] [address] | | | SERVICES, | [address] [...] + + + + | PRODUCT | [id number] | | [facility] | | | UNIT [...] + + + + | EXPIRATION | [id number] | | [facility] | | | DATE [...] + + + + | BLOOD | [id number] | | [facility] | | | PRODUCT [...] | + + + + + | [facility] | [address] | [place] [address] | | | SERVICES, | [address] [...] + + + + | PRODUCT | [id number] | | [facility] | | | UNIT [...] + + + + | EXPIRATION | [id number] | | [facility] | | | DATE [...] + + + + | BLOOD | [id number] | | [facility] | | | PRODUCT [...] | + + + + + | [facility] | [address] | [place] [address] | | | SERVICES, | [address] [...] + + + + | PRODUCT | [id number] | | [facility] | | | UNIT [...] + + + + | EXPIRATION | [id number] | | [facility] | | | DATE [...] + + + + | BLOOD | [id number] | | [facility] | | | PRODUCT [...] | + + + + + | [facility] | [address] | [place] [address] | | | SERVICES, | [address] [...] | + + + + + | [facility] | [address] | [place] [address] | | | SERVICES, CORE | [address] [...] | | | LABORATORY | | | [facility] | | | SERVICES, | | | [...] [facility] | [address] | [place] [address] | | | SERVICES, CORE | P[address] [...] + + + + + | [facility] | [address] | [place] [address] | | | SERVICES, CORE | VILMA [...] [facility] | [address] | [place], [place] | | | [employer] | [address] | [address] | | | TESTS | | | | + + + + + X-RAY PORTABLE CHEST 1 VIEW (09/01/2017 9:18 AM PDT) + + | Specimen | + + | | + + + + + | Narrative | Performed At | + + + | EXAM: NC CHEST 1 VIEW HISTORY: Intubated COMPARISON: 08/31/17 [...] Interface - 09/02/2017 1:23 PM PDT EXAM: NC CHEST 1 | | VIEW HISTORY: IntubatedCOMPARISON: 08/31/INDINGS: Support equipment is unchanged. The | | [...] Note | + + | Service Account, [employer] Res In Interface - 09/01/2017 1:40 PM [...] + + + + | PRODUCT | [id number] | | [facility] | | | UNIT [...] + + + + | EXPIRATION | [id number] | | [facility] | | | DATE [...] + + + + | BLOOD | [id number] | | [facility] | | | PRODUCT [...] | + + + + + | [facility] | [address] | [place] [address] | | | SERVICES, | [address] [...] + + + + | PRODUCT | [id number] | | [facility] | | | UNIT [...] + + + + | EXPIRATION | [id number] | | [facility] | | | DATE [...] + + + + | BLOOD | [id number] | | [facility] | | | PRODUCT [...] | + + + + + | [facility] | [address] | [place] [address] | | | SERVICES, | [address] [...] + + + + | PRODUCT | [id number] | | [facility] | | | UNIT [...] + + + + | EXPIRATION | [id number] | | [facility] | | | DATE [...] + + + + | BLOOD | [id number] | | [facility] | | | PRODUCT [...] | + + + + + | [facility] | [address] | [place] [address] | | | SERVICES, | [address] [...] + + + + | PRODUCT | [id number] | | [facility] | | | UNIT [...] + + + + | EXPIRATION | [id number] | | [facility] | | | DATE [...] + + + + | BLOOD | [id number] | | [facility] | | | PRODUCT [...] + + + + + | [facility] | [address] | [place] [address] | | | SERVICES, | [address] [...] + + + + | PRODUCT | [id number] | | [facility] | | | UNIT [...] + + + + | EXPIRATION | [id number] | | [facility] | | | DATE [...] + + + + | BLOOD | [id number] | | [facility] | | | PRODUCT [...] [facility] | [address] | [place] [address] | | | SERVICES, | [address] [...] + + + + | PRODUCT | [id number] | | [facility] | | | UNIT [...] + + + + | EXPIRATION | [id number] | | [facility] | | | DATE [...] + + + + | BLOOD | [id number] | | [facility] | | | PRODUCT [...] [facility] | [address] | [place] [address] | | | SERVICES, | [address] [...] + + + + | PRODUCT | [id number] | | [facility] | | | UNIT [...] + + + + | EXPIRATION | [id number] | | [facility] | | | DATE [...] + + + + | BLOOD | [id number] | | [facility] | | | PRODUCT [...] [facility] | [address] | [place] [address] | | | SERVICES, | [address] [...] + + + + | PRODUCT | [id number] | | [facility] | | | UNIT [...] + + + + | EXPIRATION | [id number] | | [facility] | | | DATE [...] + + + + | BLOOD | [id number] | | [facility] | | | PRODUCT [...] [facility] | [address] | [place] [address] | | | SERVICES, | [address] [...] + + + + | PRODUCT | [id number] | | [facility] | | | UNIT [...] + + + + | EXPIRATION | [id number] | | [facility] | | | DATE [...] + + + + | BLOOD | [id number] | | [facility] | | | PRODUCT [...] + | [facility] | [address] | [place] [address] | | | SERVICES, | [address] [...] + | [facility] | [address] | [place] [address] | | | SERVICES, CORE | PARK [...] [facility] | [address] | [place] [address] | | | ELIN, NATALEE | [address] [...] Discussed with | | | trauma ICU creative services intern by Dr. Yang at 4:38 AM. [...] interspinous ligament is injured.Discussed with trauma ICU creative services intern | | by Dr. Yang at 4:38 AM.I have personally reviewed the images and, if necessary, | | edited the report. I agree with the report as now presented. | |3. Extensive soft tissue edema extending into the cervical and upper thoracic interspinous space, suggestive of interspinous ligament is injured. | | | |Discussed with trauma ICU creative services intern by Dr. Yang at 4:38 AM. [...] | | | LABORATORY | | | [facility] | | | SERVICES, | | | [...] MDRD equation recommended by the | [facility] | | National Kidney Disease Education [...] + + + + + | [facility] | [address] | [place] [address] | | | SERVICES, CORE | [address] | | | + + + + + MAGNESIUM, PLASMA (09/01/2017 1:33 AM PDT) + +---------+ + + + | Component | Value | Ref Range | Performed | Pathologist | | | | | At | Signature | + +---------+ + + + | MAGNESIUM,P | 1.4 (L) | 1.6 - 2.6 mg/dL | [facility] | | | [facility] | | | [...] [facility] | [address] | [place] [address] | | | SERVICES, CORE | VILMA [...] [facility] | [address] | [place] [address] | | | SERVICES, CORE | PARK [...] + + + + + | [facility] | [address] | [place] [address] | | | NATALEE WORTHINGTON | [address] [...] pleural spaced was performed. A 32 size Namibian chest tube was | | | placed [...] | ventricles. Discussed with the trauma ICU creative services intern at 12:12 AM by | | [...] ventricles.Discussed with | | the trauma ICU creative services intern at 12:[address] Yang.I [...] | | |Discussed with the trauma ICU creative services intern at 12:[address] Yang. [...] | [facility] - | | Name: Berlin Martinezwell 08/31/2017 Time: 17:45 | [facility]LL[facility] [place], | | Diagnosis: Hypotension, trauma The patient [...] [facility] | [address] | [place], [place] | | | [facility] | [address] | [address] | | | TESTS | | | [...] + + + + + | [facility] | [address] | [place] [address] | | | SERVICES, CORE | [address] [...] | + + + + + | [facility] | [address] | [place] [address] | | | NATALEE WORTHINGTON | VILMA [...] Note | + + | Service Account, [employer] In Interface - 09/01/2017 1:50 PM PDT [...] Note | + + | Service Account, [employer] Res In Interface - 09/01/2017 1:40 PM [...] Note | + + | Service Account, [employer] Res In Interface - 09/01/2017 1:50 PM [...] [facility] | [address] | [place] [address] | | | ELIN, CORE | [address] | | | + + + + + X-RAY PORTABLE CHEST 1 VIEW (08/31/2017 7:07 PM PDT) + + | Specimen | + + | | + + + + + | Narrative | Performed At | + + + | STUDY: NC CHEST 1 VIEW HISTORY: Trauma COMPARISON: CT CAP | [facility] | | 08/31/2017 FINDINGS: Endotracheal tube [...] Interface - 09/01/2017 1:44 PM PDT STUDY: NC CHEST 1 | | VIEWHISTORY: TraumaCOMPARISON: CT [...] | + + + + + | [facility] | [address] | [place] [address] | | | ELIN, NATALEE | [address] [...] rib, nondisplaced-Left | | 1st rib fracture, cfjvdzfxuagm-Nbs-oatqwzsly left lateral 8th rib fracture-T12 fracture | [...] Note | + + | Service Account, [employer] Res In Interface - 08/31/2017 8:10 PM [...] | + + + + + | [facility] | [address] | [place] [address] | | | SERVICES, | [address] [...] [facility] | [address] | [place] [address] | | | SERVICES, | [address] [...] | + + + + + | [facility] | [address] | [place] [address] | | | SERVICES, | [address] [...] | | AMPLITUDE - | | | [facility] | | | CITRATED | | | [place], POINT | | [...] normal. Depressed MA corresponds to decreased | [place], | | clot strength suggesting HYPOcoagulability. [...] + | [facility] | [address] | [place], [place] | | | [employer] | [facility] | [address] | | | TESTS | | | [...] | | | CITRATED | | | [facility] | | | [...] [facility] | [address] | [place], [place] | | | [employer] | [address] | [address] | | | TESTS | | | [...] [facility] | | | | | | [place] | | | | | | OF CARE | | | | | | TESTS | | + + + + + + | HEMOGLOBIN, | 9.5 (L) | 13.5 - 17.5 | [facility] - | | | POC | | g/dL | [facility] | | | | | | GLOIRA [...] [facility] | [address] | [place], [place] | | | [place] OF [facility]ARE | [address] | [address] | | | TESTS | | | [...] | | | | | | OF [facility] | | | | | | TESTS | | + + + + + + + + | Specimen | + + | | + + + + + + + | Performing | Address | City/State/Zipcode | Phone Number | | Organization | | | | + + + + + | [facility] | [address] | [place] | | | [employer] | [facility] | [address] | | | TESTS | | | [...] + + + + | PRODUCT | [id number] | | [facility] | | | UNIT [...] + + + + | EXPIRATION | [id number] | | [facility] | | | DATE [...] + + + + | BLOOD | [id number] | | [facility] | | | PRODUCT [...] [facility] | [address] | [place] [address] | | | SERVICES, | [address] [...] + + + + | PRODUCT | [id number] | | [facility] | | | UNIT [...] + + + + | EXPIRATION | [id number] | | [facility] | | | DATE [...] + + + + | BLOOD | [id number] | | [facility] | | | PRODUCT [...] [facility] | [address] | [place] [address] | | | SERVICES, | [address] [...] + + + + | PRODUCT | [id number] | | [facility] | | | UNIT [...] + + + + | EXPIRATION | [id number] | | [facility] | | | DATE [...] + + + + | BLOOD | [id number] | | [facility] | | | PRODUCT [...] LABORATORY | [address] | [place] [address] | | | SERVICES, | [address] [...] + + + + | PRODUCT | [id number] | | [facility] | | | UNIT [...] + + + + | EXPIRATION | [id number] | | [facility] | | | DATE [...] + + + + | BLOOD | [id number] | | [facility] | | | PRODUCT [...] [facility] | [address] | [place] [address] | | | SERVICES, | [address] [...] + + + + | PRODUCT | [id number] | | [facility] | | | UNIT [...] + + + + | EXPIRATION | [id number] | | [facility] | | | DATE [...] + + + + | BLOOD | [id number] | | [facility] | | | PRODUCT [...] [facility] | [address] | [place] [address] | | | SERVICES, | [address] [...] + + + + | PRODUCT | [id number] | | [facility] | | | UNIT [...] + + + + | EXPIRATION | [id number] | | [facility] | | | DATE [...] + + + + | BLOOD | [id number] | | [facility] | | | PRODUCT [...] | + + + + + | [facility] | [address] | [place] [address] | | | SERVICES, | [address] [...] + + + + | PRODUCT | [id number] | | [facility] | | | UNIT [...] + + + + | EXPIRATION | [id number] | | [facility] | | | DATE [...] + + + + | BLOOD | [id number] | | [facility] | | | PRODUCT [...] | + + + + + | [facility] | [address] | [place] [address] | | | SERVICES, | [address] [...] + + + + | PRODUCT | [id number] | | [facility] | | | UNIT [...] + + + + | EXPIRATION | [id number] | | [facility] | | | DATE [...] + + + + | BLOOD | [id number] | | [facility] | | | PRODUCT [...] | + + + + + | [facility] | [address] | [place] [address] | | | SERVICES, | [address] [...] | + + + + + | [facility] | [address] | [place] [address] | | | SERVICES, CORE | [address] [...] | | | LABORATORY | | | [facility] | | | SERVICES, | | | [...] MDRD equation recommended by the | [facility] | | National Kid[employer] [...] [facility] | [address] | [place] [address] | | | SERVICES, CORE | [address] [...] + + + + + | [facility] | [address] | [place] [address] | | | SERVICES, [facility] | [address] | | | + [...] [facility] | [address] | [place] [address] | | | SERVICES, CORE | PARK [...] [facility] | [address] | [place] [address] | | | SERVICES, CORE | PARK [...] | + + + + + | [facility] | [address] | [place] [address] | | | SERVICES, NATALEE | [address] [...]
--- OUTSIDE RECORDS SUMMARY | ~2019-11-16 | XMS | Encounter Summary ---
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 | | al | | | Hospit | | | al | | | [place] | | | 1 0 | | [...] | | | 0 | | | [place] | | | | | | Region [...] | | | right | | | outer diameter grinder tool | | | ior | | | [...] | | | ext. | | | [id number] | | | or go | | [...] | | | Dates | | | [place] | | | | | | Neighb [...] | | | icalte | | | [email or web address] | | | | +---+--------+ + +---+ [...] + | [facility] | [address] | [place] [address] | | | [facility] | | | | | LABORATORY [...] | [address] | [place] [address] | | | [facility] | | | | | [...] + | NI[facility] ANDREWS | [address] | [place] [address] | | | [facility] | | | | | LABORATORY [...] + | [facility] | [address] | [place] [address] | | | [facility] | [...] + + + | Glucose | 98Comment: Beninese | 65 - 99 mg/dL | [facility] | | | | Diabetes Association | [...] + + | NIALL ANDREWS | [address] | [place] [address] | | | [facility] | | | | | LABORATORY | | | | + + + + + Hemoglobin A1C (03/18/2017 4:17 AM PST) + + + + + + | Component | Value | Ref Range | Performed | Pathologist | | | | | At | Signature | + + + + + + | Hemoglobin | 5.2Comment: The Beninese | 4.3 - 6.1 % | [facility] [...] [facility] | [address] | [place] [address] | | | [facility] | | | | | [...] + + | [facility] | [address] | [place] [address] | | | [facility] | | | | | LABORATORY [...] + + | NIALL ANDREWS | [address] | [place] [address] | | | [facility] | | | | | LABORATORY [...] 28 | 21 - 28 mmol/L | [facility] | | | | | | SACRED | | | | | | HEART | | | | | | MEDICAL | | | | | | CENTER | | | | | | LABORATORY | | + + + + + + | Glucose | 198 (H)Comment: Beninese | 65 - 99 mg/dL | [facility] | | | | Diabetes Association | [...] [address] | [place] [address] | | | [facility] | | | | | LABORATORY [...] + + | [facility] | [address] | [place] [address] | | | [facility] | | | | | LABORATORY [...] + + | NIALL ANDREWS | [address] | [place] [address] | | | [facility] | | | | | [...] + + | Performing | Address | City/State/[facility] | Phone Number | | Organization [...] + | [facility] | [address] | [place] [address] | | | [facility] | [...] - 1.030 | [facility] | | | [place] | | | [facility] | | | [...] + + | CHARISSENOEMadiha ANDREWS | [address] | [place] [address] | | | [facility] | | | | | LABORATORY [...] SACRED | [address] | [place] [address] | | | [facility] | | | | | LABORATORY [...] + + | [facility] | [address] | [place] [address] | | | [facility] | | | | | LABORATORY [...] + + | Glucose | 125 (H)Comment: Beninese | 65 - 99 mg/dL | [facility] [...] + | CHARISSENOEMadiha ANDREWS | [address] [place] [address]. | [place] [address] | | | [facility] | | | | | LABORATORY [...] + + | NIALL SACRMIKE | [address] | [place] [address] | | | [facility] | [...] | | | | | | use Hinckley 10/325 if ordered. If | | | [...] | | | | | | use Hinckley 10/325 if ordered. If | | | [...] scheduled: AC, | | | NPO, Daytime 9961-0033 Use NIGHT | | | DOSE for doses scheduled: | | | HS, 3AM, Nighttime 4722-1684 Only | | | for use with [...]
--- OUTSIDE RECORDS SUMMARY | ~2019-11-16 | XMS | Encounter Summary ---
Demographics + + + | Address | [address] | | | [place] [address] | + + + | Home Phone [...] Author | [facility] [employer] [facility] | + + + | Organization | [facility] [employer] [facility] [...] Team Providers + +------+ + | Care Svp Business Development Name | Role | Phone | + +------+ + | No Pcp Per Patient | PCP | Unavailable | + +------+ + Encounter Details +--------+ + + + + | Date | Type | Department | Care Team | Description | +--------+ + + + + | 08/31/ | Procedure | Diagnostic Imaging | | | | 2018 | Pass | Services at [facility] | | | | | | [address] | | | | | | [place] | | | | | | [facility] | | | | | | [place], [place] | | | | | | [address] | | | | | | [phone] | | | +--------+ + + + [...]
--- OUTSIDE RECORDS SUMMARY | ~2019-11-16 | XMS | Encounter Summary ---
Demographics + + + | Address | [address] | | | [place] [address] | + + + | Home Phone [...] | Author | [facility] | + + + | Organization | [facility] [employer] [facility] [...] Team Providers + +------+ + | Care Dead Mail Checker Name | Role | Phone | + +------+ + | No Pcp Per Patient | PCP | Unavailable | + +------+ + Encounter Details +--------+ + + + + | Date | Type | Department | Care Team | Description | +--------+ + + + + | 10/22/ | Procedure | Diagnostic Imaging | | | | 2017 | Pass | Services at [facility] | | | | | | [address] | | | | | | [place] | | | | | | [facility], [address] [place] [address] | | | | | | [place], [place] | | | | | | [address] | | | | | | [phone] | | | +--------+ + + + [...]
--- OUTSIDE RECORDS SUMMARY | ~2019-11-16 | XMS | Encounter Summary ---
Demographics + + + | Address | [address] | | | [place] [address] | + + + | Home Phone [...] + | Author | [facility] [employer] [facility] | + + + | Organization | [facility] [employer] [facility] | + + + | Address | Unknown | + + + | Phone | Unavailable | + + + Support + + +---------+ + | Name | Relationship | Address | Phone | + + +---------+ + | Kaylie Baig | ECON | Unknown | | + + +---------+ + Care Team Providers + +------+ + | Care Frame Builder Name | Role | Phone | [...] | | | | | Rd [facility] | | | | | | Hospital Admitting | | | | | | Desk Located on the | | | | | | 9th floor | | | | | | [place], [place] | | | | | | [address] | | | +--------+ + + + [...]
--- OUTSIDE RECORDS SUMMARY | ~2019-11-16 | XMS | Clinical Summary ---
Demographics + + + | Address | [address] | | | [place] [address] | + + + | Home Phone [...] Team Providers + +------+ + | Care Dump Operator Name | Role | Phone | + +------+ + | No Pcp Per Patient | PCP | Unavailable | + +------+ + Source Comments SELENA is fully live on both [facility] Ambulatory and [facility] InPatient.[facility] Allergies [...] | / | | MD Magdiel at [facility] | | | | | | /[id number] | | REV LOC | | | | | | 43 | + +------+--------+ +--------+--------+--------+ + + | Description:151mm x 125mm | | FT/Right-Ster | + + + +---+--------+ +---+---+--------+ | Screw Bone 4mm 1.55mm 2.55mm | | Right: | SY[facility]ES [facility] | | | 04.503 | | Matrixneuro | | Head | | | | .104.0 | | Craniomaxillofacial Titanium | | | | | | 5 / / | | Self Drill Nonsterile - | | | | | | | | [id number]: Qty: 11 | | | | | | | | on 11/05/2017 by Dayami, | | | | | | | | MD Magdiel at [facility] | | | | | | [...] | | | | | | | [id number]: Qty: | | | | | | | | 1Explanted: Qty: 1 on | | | | | | | | 11/05/2017 at [facility] | | | | | | [...] | | | + +--------+ +--------+-------+---------+--------+ | ENTERPRISE APPLICATION DEVELOPER MEDICAID | ENTERPRISE APPLICATION DEVELOPER | xxxxxxxx | 08/28/19 | | | [...] Person | Self | [birth year] | | [address] | | | al/Fam | | 1950 | [phone] | [place] [address] | | | taras | | | 6 (Home) | | + +--------+ +--------+ + + | [place] | Third | Self | [birth year] | | [address] | | | Constitution Party | | 1950 | [id number] | [place] [address] | | | Liabil | | | [...]
--- OUTSIDE RECORDS SUMMARY | ~2019-11-16 | XMS | Encounter Summary ---
Demographics + + + | Address | [address] | | | [place] [address] | + + + | Home Phone [...] + | Author | [facility] [employer] [facility] | + + + | Organization | [facility] [employer] [facility] | + [...] Team Providers + +------+ + | Care Policy Issue Clerk Name | Role | Phone | [...] Event | [address] | [address] | | | | | [facility] | [address] | | | | | Hospital Admitting | [place], [place] | | | | | Desk Located on the | [address] | | | | | 9th floor | [phone] | | | | | [place], [place] | | | | | | [address] | Mariann Victor CRNA | | | | | | [address] | | | | | | [address] | | | | | | [place], [place] | | | | | | [address] | | | | | | [phone] | | | | | | | [...] | | | | Lumen | Yes; [id number]; 11/09/17; 1154; | | | | | [...]
--- OUTSIDE RECORDS SUMMARY | ~2019-11-16 | XMS | Encounter Summary ---
Demographics + + + | Address | [address] | | | [place] [address] | + + + | Home Phone [...] + | Author | [facility] [facility] | + + + | Organization | [facility] [employer] [facility] | [...] Team Providers + +------+ + | Care Twister Frame Tender Name | Role | Phone | [...] Pharmacy | | | | | | [address] | | | | | | Loop [place], [place] | | | | | | [address] | | | | | | [phone] | | | +--------+ + + + [...]
--- OUTSIDE RECORDS SUMMARY | ~2019-11-16 | XMS | Encounter Summary ---
Demographics + + + | Address | [address] | | | [place] [address] | + + + | Home Phone [...] Author | [facility] | + + + | Organization | [facility] [employer] [facility] | + + + | Address | Unknown | + + + | Phone | Unavailable | + + + Support + + +---------+ + | Name | Relationship | Address | Phone | + + +---------+ + | Kaylie Baig | ECON | Unknown | | + + +---------+ + Care Team Providers + +------+ + | Care Time Study Observer Name | Role | Phone | [...] [address] | | | | | [facility] | [address] | | | | | Hospital Admitting | [place], [place] | | | | | Desk Located on the | [address] | | | | | 9th floor | [phone] | | | | | [place], [place] | | | | | | [address] | Joslyn Boss, | | | | | | [address] | | | | | | [address] | | | | | | [place], [place] | | | | | | [address] | | | | | | [phone] | | | | | | | [...]
--- OUTSIDE RECORDS SUMMARY | ~2019-11-16 | XMS | Encounter Summary ---
Demographics + + + | Address | [address] | | | [place] [address] | + + + | Home Phone [...] + | Author | [facility] | + + + | Organization | [facility] [facility] | + + [...] Providers + +------+ + | Care Video Library Assistant Name | Role | Phone | [...] CENTER | | | | | | [address] | | | | | | [place]ola [place] | | | | | | [facility], [address] [place] [address] | | | | | | [place], [place] | | | | | | [address] | | | | | | [phone] | | | +--------+ + + + [...]
--- OUTSIDE RECORDS SUMMARY | ~2019-11-16 | XMS | Encounter Summary ---
Demographics + + + | Address | [address] | | | [place] [address] | + + + | Home Phone [...] + + + | Author | [facility] | + + + | Organization | [facility] [facility] | [...] Providers + +------+ + | Care Production Line Worker Name | Role | Phone | [...] Chambers | | | | | [facility] | [address] [place], | | | | | Hospital Admitting | [place] [address] | | | | | Desk Located on the | [phone] | | | | | 9th floor | | | | | | [place], [place] | [place]lyn Boss, | | | | | [address] | [address] | | | | | | [address] | | | | | | [place], [place] | | | | | | [address] | | | | | | [phone] | | | | | | | [...] + + + | Periph | 08/31/17; [facility]; Right; | 08/31/17 0000 by | 09/05/178 by | | ansley | Hand; 18 g; 09/05/17; 1717; Per | Guera Gresham RN | Barbie Yu RN | | IV | protocol | | | +--------+ + + + | Periph | 08/31/17; [facility]; Right; | 08/31/17 0000 by [...]
--- OUTSIDE RECORDS SUMMARY | ~2019-11-16 | XMS | Encounter Summary ---
Demographics + + + | Address | [address] | | | [place] [address] | + + + | Home Phone [...] [facility] [employer] [facility] | + + + | Organization | [facility] [employer] [facility] | + + + | Address | Unknown | + + + | Phone | Unavailable | + + + Support + + +---------+ + | Name | Relationship | Address | Phone | + + +---------+ + | Kaylie Baig | ECON | Unknown | | + + +---------+ + Care Team Providers + +------+ + | Care Cane Furniture Maker Name | Role | Phone | [...] CENTER | | | | | | [address] | | | | | | [place] | | | | | | [facility], [address] [place] [address] | | | | | | [place], [place] | | | | | | [address] | | | | | | [phone] | | | +--------+ + + + [...]
--- OUTSIDE RECORDS SUMMARY | ~2019-11-16 | XMS | Clinical Summary ---
Demographics + + + | Address | [address] | | | [place] [address] | + + + | Home Phone | | + + + | Preferred Language | Unknown | + + + | Marital Status | Single | + + + | Jehovah'S Witness Affiliation | Unknown | + + + | Race | Unknown | + + + | Ethnic Group | Unknown | + + + Author + + + | Author | [facility] | | | and [place] | + + + | Organization | [facility] | | | and [place] [...] Team Providers + +------+ + | Care Rocket Engine Component Mechanic Name | Role | Phone | + +------+ + | [facility] | PCP | | + [...] +---------+--------+ | MEDICAID [facility] | MEDICA | [id number] | | [phone] | | Medica | [...] Person | Self | [birth year] | [address] | | | al/Fam | | 1961 | [phone] | [place] [address] | | | taras | | | 1 (Home) | | + +--------+ +--------+ + + Advance Directives + + + + + | Type | Date Recorded | Patient | Explanation | | | | Poultry Culler | | + + + + + | Power of | | | | | Route Agent | | | | + + + [...]
--- OUTSIDE RECORDS SUMMARY | ~2019-11-16 | XMS | Encounter Summary ---
Demographics + + + | Address | [address] | | | [place] [address] | + + + | Home Phone [...] | Author | [facility] [employer] [facility] | + + + | Organization | [facility] [employer] [facility] | + + + | Address | Unknown | + + + | Phone | Unavailable | + + + Support + + +---------+ + | Name | Relationship | Address | Phone | + + +---------+ + | Kaylie Baig | ECON | Unknown | | + + +---------+ + Care Team Providers + +------+ + | Care Digital Forensic Analyst Name | Role | Phone | [...] | | | | | | Rd [facility] | | | | | | Hospital Admitting | | | | | | Desk Located on the | | | | | | 9th floor | | | | | | [place], [place] | | | | | | [address] | | | +--------+ + + + [...]
--- OUTSIDE RECORDS SUMMARY | ~2019-11-16 | XMS | Encounter Summary ---
Demographics + + + | Address | [address] | | | [place] [address] | + + + | Home Phone [...] + | Author | [facility] [employer] [facility] | + + + | Organization | [facility] [employer] [facility] [...] Team Providers + +------+ + | Care Netbackup Administrator Name | Role | Phone | [...] | | | | Rd [facility] | | | | | | Hospital Admitting | | | | | | Desk Located on the | | | | | | 9th floor | | | | | | [place], [place] | | | | | | [address] | | | +--------+ + + + [...]
[2019-11-16] MEDS ORDERED: TRAMADOL HCL50 MG PO (22:36)
== END 2019-11-17 01:54 | disposition home or self-care (01) ==
LOC: ED 20:01
PROC: 2W3DX1Z Immobilization of Left Lower Arm using Splint (ICD-10-PCS; principal; 2019-11-16)
DX: S52.502A Unspecified fracture of the lower end of left radius, initial encounter for closed fracture (principal); R56.9 Unspecified convulsions; Z79.899 Other long term (current) drug therapy; W19.XXXA Unspecified fall, initial encounter
CPT/HCPCS: 29125; 73110; 73130; 99283-25

== ENCOUNTER 2019-12-03 11:14 | Emergency (ER) | payer OTHER ==
[~2019-12-03] VITALS: Ht 165.1 cm; Wt 70.7 kg
--- OUTSIDE RECORDS SUMMARY | ~2019-12-03 | XMS | Encounter Summary ---
Demographics + + + | Address | [address] | | | [place] [address] | + + + | Home Phone | | + + + | Preferred Language | Unknown | + + + | Marital Status | Single | + + + | Sikh Affiliation | PEN | + + + | Race | or | + + + | Ethnic Group | Not or | + + + Author + + + | Author | [facility] [employer] [facility] | + + + | Organization | [facility] [employer] [facility] | + + + | Address | Unknown | + + + | Phone | Unavailable | + + + Support + + +---------+ + | Name | Relationship | Address | Phone | + + +---------+ + | Kaylie Baig | ECON | Unknown | | + + +---------+ + Care Team Providers + +------+ + | Care Unemployment Specialist Name | Role | Phone | + +------+ + | No Pcp Per Patient | PCP | Unavailable | + +------+ + Encounter Details +--------+ + + + + | Date | Type | Department | Care Team | Description | +--------+ + + + + | 10/12/ | Procedure | Diagnostic Imaging | | | | 2018 | Pass | Services at [facility] | | | | | | [address] | | | | | | [place] | | | | | | [facility] [address] [place] [address] | | | | | | [place], [place] | | | | | | [address] | | | | | | [phone] | | | +--------+ + + + [...]
--- OUTSIDE RECORDS SUMMARY | ~2019-12-03 | XMS | Encounter Summary ---
Demographics + + + | Address | [address] | | | [place] [address] | + + + | Home Phone | | + + + | Preferred Language | Unknown | + + + | Marital Status | Single | + + + | Jehovah'S Witness Affiliation | PEN | + + + | Race | or | + + + | Ethnic Group | Not or | + + + Author + + + | Author | [facility] [employer] [facility] | + + + | Organization | [facility] [employer] [facility] | + + + | Address | Unknown | + + + | Phone | Unavailable | + + + Support + + +---------+ + | Name | Relationship | Address | Phone | + + +---------+ + | Kaylie Baig | ECON | Unknown | | + + +---------+ + Care Team Providers + +------+ + | Care Labor Supervisor Name | Role | Phone | + [...] | 2018 | Pass | [address] | | | | | | Rd [facility] | | | | | | Hospital Admitting | | | | | | Desk Located on the | | | | | | 9th floor | | | | | | [place], [place] | | | | | | [address] | | | +--------+ + + + [...]
--- OUTSIDE RECORDS SUMMARY | ~2019-12-03 | XMS | Clinical Summary ---
Demographics + + + | Address | [address] | | | [place] [address] | + + + | Home Phone | | + + + | Preferred Language | Unknown | + + + | Marital Status | Single | + + + | Synagogue Affiliation | Unknown | + + + | Race | Unknown | + + + | Ethnic Group | Unknown | + + + Author + + + | Author | [facility] | | | and [place] | + + + | Organization | [facility] | | | and [place] | + + + | Address | Unknown | + + + | Phone | Unavailable | + + + Support + + +---------+ + | Name | Relationship | Address | Phone | + + +---------+ + | Per Pt None | ECON | Unknown | | + + +---------+ + Care Team Providers + +------+ + | Care Appeals Specialist Name | Role | Phone | + +------+ + | [facility] | PCP | | + +------+ + Allergies No Known Allergies Medications + + + +---------+------+------+-------+ | Medication | Sig | Dispensed | Refills | Star | End | Statu | | | | | | t | Date | s | | | | | | Date | | | + + + +---------+------+------+-------+ | levETIRAcetam | Take 500 mg by mouth | | 0 | | | Activ | | (KEPPRA) 500 mg | 2 times daily. | | | | | e | | tablet | | | | | | | + + + +---------+------+------+-------+ | escitalopram | Take 10 mg by mouth | | 0 | | | Activ | | (LEXAPRO) 10 mg | Daily. | | | | | e | | tablet | | | | | | | + + + +---------+------+------+-------+ | atorvaSTATin | Take 20 mg by mouth | | 0 | | | Activ | | (LIPITOR) 20 mg | nightly. 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/16/2017 | + + + | Alcohol abuse | 03/16/2017 | + + + | Nicotine abuse | 03/16/2017 | + + + | Fall | 03/16/2017 | + + + | Homelessness | 03/16/2017 | + + + Social History + + + +--------+------+ | Tobacco Use | Types | Packs/Day | Years | Date | | | | | Used | | + + + +--------+------+ | Current Every Day | Cigarettes | | | | | Smoker | | | | | + + + +--------+------+ + + +---------+ + | Alcohol Use | Drinks/Week | oz/Week | Comments | + + +---------+ + | Yes | | | alcoholism pt not | | | | | specific on use | + + +---------+ + + + + | Sex Assigned at | Date Recorded | | | | + + + | Not on file | | + + + Last Filed Vital Signs + + + + + | Vital Sign | Reading | Time Taken | Comments | + + + + + | Blood Pressure | 138/87 | 03/18/2017 4:57 PM | | | | | PST | | + + + + + | Pulse | 81 | 03/18/2017 4:57 PM | | | | | PST | | + + + + + | Temperature | 36.7 C (98 F) | 03/18/2017 4:57 PM | | | | | PST | | + + + + + | Respiratory Rate | 18 | 03/18/2017 4:57 PM | | | | | PST | | + + + + + | Oxygen Saturation | 98% | 03/18/2017 4:57 PM | | | | | PST | | + + + + + | Inhaled Oxygen | - | - | | | Concentration | | | | + + + + + | Weight | 81.6 kg (180 lb) | 03/15/2017 2:38 PM | | | | | PST | | + + + + + | Height | 170.2 cm (5' 7") | 03/15/2017 2:38 PM | | | | | PST | | + + + + + | Body Mass Index | 28.19 | 03/15/2017 2:38 PM | | | | | PST | | + + + + + Plan of Treatment + + +-------+ + | Health Maintenance | Due Date | Last | Comments | | | | Done | | + + +-------+ + | Vaccine: | | | | | Dtap/Tdap/Td (1 - | 2 | | | | Tdap) | | | | + + +-------+ + | Vaccine: Zoster (1 | | | | | of 2) | 3 | | | + + +-------+ + | Vaccine: Influenza | | | | | (#1) | 0 | | | + + +-------+ + Results Not on filefrom Last 3 Months Insurance + +--------+ +--------+ +---------+--------+ | Payer | Benefi | Subscriber | Effect | Phone | Address | Type | | | t Plan | ID | tricia | | | | | | / | | Dates | | | | | | Group | | | | | | + +--------+ +--------+ +---------+--------+ | MEDICAID [facility] | MEDICA | [id number] | | [phone] | | Medica | | | ID | | [id number] | 2 | | id | | | WASHIN | | esent | | | | | | GTON | | | | | | + +--------+ +--------+ +---------+--------+ + +--------+ +--------+ + + | Guarantor Name | Accoun | Relation to | Date | Phone | Billing Address | | | t Type | Patient | of | | | | | | | | | | + +--------+ +--------+ + + | [place] | Person | Self | [birth year] | [address] | | | al/Fam | | 1961 | [phone] | [place] [address] | | | taras | | | 1 (Home) | | + +--------+ +--------+ + + Advance Directives + + + + + | Type | Date Recorded | Patient | Explanation | | | | Set Up Worker | | + + + + + | Power of | | | | | Tax Advisor | | | | + + + + + | Advance | 03/16/2017 | | | | Directive | 8:50 AM | | | + + + + + + + + + + | Code Status | Date | Date | Comments | | | Activated | Inactivated | | + + + + + | Full Code | 03/16/2017 | 03/18/2017 | | | | 12:33 AM | 7:58 PM | | + + + + +
--- OUTSIDE RECORDS SUMMARY | ~2019-12-03 | XMS | Encounter Summary ---
Demographics + + + | Address | [address] | | | [place] [address] | + + + | Home Phone | | + + + | Preferred Language | Unknown | + + + | Marital Status | Single | + + + | Restoration Affiliation | PEN | + + + | Race | or | + + + | Ethnic Group | Not or | + + + Author + + + | Author | [facility] [employer] [facility] | + + + | Organization | [facility] [employer] [facility] | + + + | Address | Unknown | + + + | Phone | Unavailable | + + + Support + + +---------+ + | Name | Relationship | Address | Phone | + + +---------+ + | Kaylie Baig | ECON | Unknown | | + + +---------+ + Care Team Providers + +------+ + | Care Technical Services Specialist Name | Role | Phone | [...] | 2017 | Pass | Services at [facility] | | | | | | [address] | | | | | | [place]ola [place] | | | | | | [facility] | | | | | | [place], [place] | | | | | | [address] | | | | | | [phone] | | | +--------+ + + + [...]
--- OUTSIDE RECORDS SUMMARY | ~2019-12-03 | XMS | Encounter Summary ---
Demographics + + + | Address | [address] | | | [place] [address] | + + + | Home Phone | | + + + | Preferred Language | Unknown | + + + | Marital Status | Single | + + + | Mormonism Affiliation | PEN | + + + | Race | or | + + + | Ethnic Group | Not or | + + + Author + + + | Author | [facility] | + + + | Organization | [facility] [facility] [...] Team Providers + +------+ + | Care Carton Catcher Name | Role | Phone | + +------+ + | No Pcp Per Patient | PCP | Unavailable | + +------+ + Encounter Details +--------+ + + + + | Date | Type | Department | Care Team | Description | +--------+ + + + + | 08/31/ | Procedure | Diagnostic Imaging | | | | 2017 | Pass | Services at [facility] | | | | | | [address] | | | | | | [place]ola [place]S | | | | | | [facility], [address] [place] [address] | | | | | | [place], [place] | | | | | | [address] | | | | | | [phone] | | | +--------+ + + + [...]
--- OUTSIDE RECORDS SUMMARY | ~2019-12-03 | XMS | Encounter Summary ---
Demographics + + + | Address | [address] | | | [place] [address] | + + + | Home Phone | | + + + | Preferred Language | Unknown | + + + | Marital Status | Single | + + + | Taoist Affiliation | PEN | + + + | Race | or | + + + | Ethnic Group | Not or | + + + Author + + + | Author | [facility] | + + + | Organization | [facility] [employer] [facility] | + + + | Address | Unknown | + + + | Phone | Unavailable | + + + Support + + +---------+ + | Name | Relationship | Address | Phone | + + +---------+ + | Kaylie Baig | ECON | Unknown | | + + +---------+ + Care Team Providers + +------+ + | Care Technical Writing Lead/Mgr Name | Role | Phone | + [...] [place] | | | | | Guy [facility] | [address] | | | | | Hospital Admitting | [place], [place] | | | | | Desk Located on the | [address] | | | | | 9th floor | [phone] | | | | | [place], [place] | | | | | | [address] | Joslyn Boss, | | | | | | [address] | | | | | | [address] | | | | | | [place], [place] | | | | | | [address] | | | | | | [phone] | | | | | | | [...]
--- OUTSIDE RECORDS SUMMARY | ~2019-12-03 | XMS | Encounter Summary ---
Demographics + + + | Address | [address] | | | [place] [address] | + + + | Home Phone | | + + + | Preferred Language | Unknown | + + + | Marital Status | Single | + + + | Worship Affiliation | PEN | + + + | Race | or | + + + | Ethnic Group | Not or | + + + Author + + + | Author | [facility] | + + + | Organization | [facility] [employer] [facility] | + + + | Address | Unknown | + + + | Phone | Unavailable | + + + Support + + +---------+ + | Name | Relationship | Address | Phone | + + +---------+ + | Kaylie Baig | ECON | Unknown | | + + +---------+ + Care Team Providers + +------+ + | Care Housing Inspector Name | Role | Phone | [...] 09/02/ | Anesthesia | [address] | Rebekah Wood MD | | | 2018 | Event | [address] | [address] | | | | | Guy [facility] | [place], | | | | | Hospital Admitting | [place] [address] | | | | | Desk Located on the | [phone] | | | | | 9th floor | | | | | | [place], [place] | Joslyn Boss, | | | | | [address] | [address] | | | | | | [address] | | | | | | [place], [place] | | | | | | [address] | | | | | | [phone] | | | | | | | [...] + + + | Periph | 08/31/17; [facility]; Right; | 08/31/17 0000 by | 09/05/178 by | | ansley | Hand; 18 g; 09/05/17; 1717; Per | Guera Gresham RN | Barbie Yu RN | | IV | protocol | | | +--------+ + + + | Periph | 08/31/17; [facility] hospital; Right; | 08/31/17 0000 by [...]
--- OUTSIDE RECORDS SUMMARY | ~2019-12-03 | XMS | Encounter Summary ---
Demographics + + + | Address | [address] | | | [place] [address] | + + + | Home Phone | | + + + | Preferred Language | Unknown | + + + | Marital Status | Single | + + + | Scientology Affiliation | PEN | + + + | Race | or | + + + | Ethnic Group | Not or | + + + Author + + + | Author | [facility] [employer] [facility] | + + + | Organization | [facility] [employer] [facility] | + + + | Address | Unknown | + + + | Phone | Unavailable | + + + Support + + +---------+ + | Name | Relationship | Address | Phone | + + +---------+ + | Kaylie Baig | ECON | Unknown | | + + +---------+ + Care Team Providers + +------+ + | Care Mucker Operator Name | Role | Phone | [...] | 2017 | Pass | Services at [facility] | | | | | | [address] | | | | | | Nola Perez | | | | | | [facility] | | | | | | [place], [place] | | | | | | [address] | | | | | | [phone] | | | +--------+ + + + [...]
--- OUTSIDE RECORDS SUMMARY | ~2019-12-03 | XMS | Encounter Summary ---
Demographics + + + | Address | [address] | | | [place] [address] | + + + | Home Phone [...] + + + | Author | [facility] [employer] [facility] | + + + | Organization | [facility] The [employer] [facility] [...] Team Providers + +------+ + | Care Nuclear Reactor Engineer Name | Role | Phone | + +------+ + | No Pcp Per Patient | PCP | Unavailable | + +------+ + Encounter Details +--------+ + + + + | Date | Type | Department | Care Team | Description | +--------+ + + + + | 08/31/ | Procedure | Diagnostic Imaging | | | | 2018 | Pass | Services at [facility] | | | | | | [address] | | | | | | [place] | | | | | | [facility] | | | | | | [place], [place] | | | | | | [address] | | | | | | [phone] | | | +--------+ + + + [...]
--- OUTSIDE RECORDS SUMMARY | ~2019-12-03 | XMS | Encounter Summary ---
Demographics + + + | Address | [address] | | | [place] [address] | + + + | Home Phone | | + + + | Preferred Language | Unknown | + + + | Marital Status | Single | + + + | Islam Affiliation | PEN | + + + | Race | or | + + + | Ethnic Group | Not or | + + + Author + + + | Author | [facility] [employer] [facility] | + + + | Organization | [facility] [employer] [facility] | + + + | Address | Unknown | + + + | Phone | Unavailable | + + + Support + + +---------+ + | Name | Relationship | Address | Phone | + + +---------+ + | Kaylie Baig | ECON | Unknown | | + + +---------+ + Care Team Providers + +------+ + | Care Tooth Inspector Name | Role | Phone | [...] | 2017 | Pass | Services at [facility] | | | | | | [address] | | | | | | [place]ola [place]TERS | | | | | | [facility], [address] [place] [address] | | | | | | [place], [place] | | | | | | [address] | | | | | | [phone] | | | +--------+ + + + [...]
--- OUTSIDE RECORDS SUMMARY | ~2019-12-03 | XMS | Encounter Summary ---
Demographics + + + | Address | [address] | | | [place] [address] | + + + | Home Phone [...] + | Author | [facility] | + + + | Organization | [facility] | + + + | Address | Unknown | + + + | Phone | Unavailable | + + + Support + + +---------+ + | Name | Relationship | Address | Phone | + + +---------+ + | Kaylie Baig | ECON | Unknown | | + + +---------+ + Care Team Providers + +------+ + | Care Therapist Asst Name | Role | Phone | + [...] | | | | | Procedures | [place], [place] | [place] | | | | | REQUEST TO | [address] | [address] | | | | | SURGERY | Phone: | Phone: | | | | | TOP CASE ASSEMBLER | [phone] | [phone] | | | | | PA REPLACE | Fax: | Fax: | | | | | SKULL | [phone] | [phone] | | | | | PLATE/FLAP | | | | | | | PA REPAIR | | | | | | | SKULL | | | | | | | DEFECT,UP TO | | | | | | | 5CM PA | | | | | | | REPAIR SKULL | | | | | | | DEFECT,>5CM | | | | | | | PA | | | | | | | [...] + + + + | 10/31/ | Dobby Loom Weaver | [facility] at | Magdiel Stock MD | Skull defect | | 2018 | | [facility] [address] | [address] | (Primary Dx) | | | | [facility]le [place] for | [place], | | | | | Health and Healing, | [place] [address] | | | | | [place] [address] | [phone] | | | | | [place], [place] | | | | | | [address] | | | | | | [phone] | | | +--------+ + + + [...]
--- OUTSIDE RECORDS SUMMARY | ~2019-12-03 | XMS | Encounter Summary ---
Demographics + + + | Address | [address] | | | [place] [address] | + + + | Home Phone [...] Author + + + | Author | [facility] | + + + | Organization | [facility] In[facility] | + + + | Address | Unknown | + + + | Phone | Unavailable | + + + Support + + +---------+ + | Name | Relationship | Address | Phone | + + +---------+ + | Kaylie Baig | ECON | Unknown | | + + +---------+ + Care Team Providers + +------+ + | Care Junior Data Analyst Name | Role | Phone | [...] | | | Guy [facility] | [address] | | | | | Hospital Admitting | [place], [place] | | | | | Desk Located on the | [address] | | | | | 9th floor | [phone] | | | | | [place], [place] | | | | | | [address] | Rg [place], | | | | | | [facility] [address] | | | | | | [address] | | | | | | [place], [place] | | | | | | [address] | | | | | | [phone] | | | | | | | [...] centrally accessed); | | | | | [id number]; 10/22/17; 1542; | | | | | [...]
--- OUTSIDE RECORDS SUMMARY | ~2019-12-03 | XMS | Encounter Summary ---
Demographics + + + | Address | [address] | | | [place] [address] | + + + | Home Phone [...] Author | [facility] [employer] [facility] | + + + | Organization | [facility] [employer] [facility] | + + + | Address | Unknown | + + + | Phone | Unavailable | + + + Support + + +---------+ + | Name | Relationship | Address | Phone | + + +---------+ + | Kaylie Baig | ECON | Unknown | | + + +---------+ + Care Team Providers + +------+ + | Care Rd Scientist Name | Role | Phone | + [...] | Pass | Services at [facility] | | | | | | [address] | | | | | | Nola WALTERS | | | | | | [facility], [address] [place] [address] | | | | | | [place], [place] | | | | | | [address] | | | | | | [phone] | | | +--------+ + + + [...]
--- OUTSIDE RECORDS SUMMARY | ~2019-12-03 | XMS | Encounter Summary ---
Demographics + + + | Address | [address] | | | [place] [address] | + + + | Home Phone [...] Author + + + | Author | [facility] [facility] | + + + | Organization | [facility]i [facility] | + + + | Address | Unknown | + + + | Phone | Unavailable | + + + Support + + +---------+ + | Name | Relationship | Address | Phone | + + +---------+ + | Kaylie Baig | ECON | Unknown | | + + +---------+ + Care Team Providers + +------+ + | Care Clinical Faculty Name | Role | Phone | + [...] | | | | | | Rd [facility] | | | | | | Hospital Admitting | | | | | | Desk Located on the | | | | | | 9th floor | | | | | | [place], [place] | | | | | | [address] | | | +--------+ + + + [...]
--- OUTSIDE RECORDS SUMMARY | ~2019-12-03 | XMS | Encounter Summary ---
Demographics + + + | Address | [address] | | | [place] [address] | + + + | Home Phone [...] Count Includes [facility] [employer] [facility] | + + + | Organization | Count Includes [facility] [employer] [facility] | + + + | Address | Unknown | + + + | Phone | Unavailable | + + + Support + + +---------+ + | Name | Relationship | Address | Phone | + + +---------+ + | Kaylie Baig | ECON | Unknown | | + + +---------+ + Care Team Providers + +------+ + | Care Hairspring Adjuster Name | Role | Phone | [...] | | | | | | Rd [facility] | | | | | | Hospital Admitting | | | | | | Desk Located on the | | | | | | 9th floor | | | | | | [place], [place] | | | | | | [address] | | | +--------+ + + + [...]
--- OUTSIDE RECORDS SUMMARY | ~2019-12-03 | XMS | Encounter Summary ---
Demographics + + + | Address | [address] | | | [place] [address] | + + + | Home Phone [...] + | Author | [facility] [employer] [facility] | + + + | Organization | [facility] [employer] [facility] | + [...] Team Providers + +------+ + | Care Timber Sizer Operator Name | Role | Phone | [...] | | | | | | Rd [facility] | | | | | | Hospital Admitting | | | | | | Desk Located on the | | | | | | 9th floor | | | | | | [place], [place] | | | | | | [address] | | | +--------+ + + + [...]
--- OUTSIDE RECORDS SUMMARY | ~2019-12-03 | XMS | Encounter Summary ---
Demographics + + + | Address | [address] | | | [place] [address] | + + + | Home Phone [...] + | Author | [facility] [facility] | + + + | Organization | [facility] [employer] [facility] | + + + | Address | Unknown | + + + | Phone | Unavailable | + + + Support + + +---------+ + | Name | Relationship | Address | Phone | + + +---------+ + | Kaylie Baig | ECON | Unknown | | + + +---------+ + Care Team Providers + +------+ + | Care Board Certified Orthodontist Name | Role | Phone | + [...] + + + + | 09/15/ | Javascript Engineer | Neurosurgery at | Dallin Bourgeois, | Other closed | | 2018 | | [facility] [address] | MD [address] | nondisplaced | | | | [facility] for | [address] | fracture of seventh | | | | Health and Healing, | [place], [place] | cervical vertebra | | | | Building , 8th | [address] | with routine | | | | floor [place], [place] | [phone] | healing, subsequent | | | | [address] | | encounter (Primary | | | | [phone] | | Dx) | +--------+ + + [...]
--- OUTSIDE RECORDS SUMMARY | ~2019-12-03 | XMS | Encounter Summary ---
Demographics + + + | Address | [address] | | | [place] [address] | + + + | Home Phone [...] | Author | [facility] | + + + | Organization | [facility] | + + + | Address | Unknown | + + + | Phone | Unavailable | + + + Support + + +---------+ + | Name | Relationship | Address | Phone | + + +---------+ + | Kaylie Baig | ECON | Unknown | | + + +---------+ + Care Team Providers + +------+ + | Care Psychologist Chief Name | Role | Phone | [...] | 2018 | Pass | Services at [facility] | | | | | | [address] | | | | | | Nola Perez | | | | | | [facility] | | | | | | [place], [place] | | | | | | [address] | | | | | | [phone] | | | +--------+ + + + [...]
--- OUTSIDE RECORDS SUMMARY | ~2019-12-03 | XMS | Encounter Summary ---
Demographics + + + | Address | [address] | | | [place] [address] | + + + | Home Phone [...] Author | [facility] [employer] [facility] | + + + | Organization | [facility] [employer] [facility] | + + + | Address | Unknown | + + + | Phone | Unavailable | + + + Support + + +---------+ + | Name | Relationship | Address | Phone | + + +---------+ + | Kaylie Baig | ECON | Unknown | | + + +---------+ + Care Team Providers + +------+ + | Care Survey Interviewer Name | Role | Phone | + [...] HOSPITAL | | | | | | [address] | | | | | | [place]ola [place]TERS | | | | | | [facility], [address] [place] [address] | | | | | | [place], [place] | | | | | | [address] | | | | | | [phone] | | | +--------+ + + + [...]
--- OUTSIDE RECORDS SUMMARY | ~2019-12-03 | XMS | Encounter Summary ---
Demographics + + + | Address | [address] | | | [place] [address] | + + + | Home Phone [...] + | Author | [facility] | + + + | Organization | [facility] [facility] | + + + | Address | Unknown | + + + | Phone | Unavailable | + + + Support + + +---------+ + | Name | Relationship | Address | Phone | + + +---------+ + | Kaylie Baig | ECON | Unknown | | + + +---------+ + Care Team Providers + +------+ + | Care Professor Of Mathematics Name | Role | Phone | + [...] floor | | | | | | [place], [place] | | | | | | [address] | | | +--------+ + + + [...]
--- OUTSIDE RECORDS SUMMARY | ~2019-12-03 | XMS | Encounter Summary ---
Demographics + + + | Address | [address] | | | [place] [address] | + + + | Home Phone [...] + + + | Author | [facility] [employer] [facility] | + + + | Organization | [facility] [employer] [facility] | + + + | Address | Unknown | + + + | Phone | Unavailable | + + + Support + + +---------+ + | Name | Relationship | Address | Phone | + + +---------+ + | Kaylie Baig | ECON | Unknown | | + + +---------+ + Care Team Providers + +------+ + | Care Research Subject Name | Role | Phone | + [...] Pharmacy | | | | | | [address] | | | | | | [place], [place] | | | | | | [address] | | | | | | [phone] | | | +--------+ + + + [...]
--- OUTSIDE RECORDS SUMMARY | ~2019-12-03 | XMS | Encounter Summary ---
Demographics + + + | Address | [address] | | | [place] [address] | + + + | Home Phone [...] + + | Author | [facility] [employer] [facility] | + + + | Organization | [facility] [employer] [facility] | + [...] Team Providers + +------+ + | Care Biologics Specialist Name | Role | Phone | [...] + + + + | 09/15/ | Flat Folder | Neurosurgery at | Dallin Bourgeois, | Other closed | | 2018 | | [facility] [address] | MD [address] | nondisplaced | | | | [facility] for | [address] | fracture of seventh | | | | Health and Healing, | [place], [place] | cervical vertebra | | | | Building , 8th | [address] | with routine | | | | floor [place], [place] | [phone] | healing, subsequent | | | | [address] | | encounter (Primary | | | | [phone] | | Dx) | +--------+ + + [...]
--- OUTSIDE RECORDS SUMMARY | ~2019-12-03 | XMS | Encounter Summary ---
Demographics + + + | Address | [address] | | | [place] [address] | + + + | Home Phone [...] | Author | [facility] [employer] [facility] | + + + | Organization | [facility] [employer] [facility] | + + + | Address | Unknown | + + + | Phone | Unavailable | + + + Support + + +---------+ + | Name | Relationship | Address | Phone | + + +---------+ + | Kaylie Baig | ECON | Unknown | | + + +---------+ + Care Team Providers + +------+ + | Care Drafting Layout Worker Name | Role | Phone | [...] | | | | Rd [facility] | | | | | | Hospital Admitting | | | | | | Desk Located on the | | | | | | 9th floor | | | | | | [place], [place] | | | | | | [address] | | | +--------+ + + + [...]
--- OUTSIDE RECORDS SUMMARY | ~2019-12-03 | XMS | Encounter Summary ---
Demographics + + + | Address | [address] | | | [place] [address] | + + + | Home Phone | | + + + | Preferred Language | Unknown | + + + | Marital Status | Single | + + + | Congregation Affiliation | PEN | + + + | Race | or | + + + | Ethnic Group | Not or | + + + Author + + + | Author | [facility] | + + + | Organization | [facility] [employer] [facility] | + + + | Address | Unknown | + + + | Phone | Unavailable | + + + Support + + +---------+ + | Name | Relationship | Address | Phone | + + +---------+ + | Kaylie Baig | ECON | Unknown | | + + +---------+ + Care Team Providers + +------+ + | Care Advertising Account Representative Name | Role | Phone | [...] | [address] | R, MD [address] | | | | | [facility] | [address] | | | | | Hospital Admitting | [place], [place] | | | | | Desk Located on the | [address] | | | | | 9th floor | [phone] | | | | | [place], [place] | | | | | | [address] | [address], | | | | | | [facility] [address] | | | | | | [address] | | | | | | [place], [place] | | | | | | [address] | | | | | | [phone] | | | | | | | [...] centrally accessed); | | | | | [id number]; 10/22/17; 1542; | | | | | [...]
--- OUTSIDE RECORDS SUMMARY | ~2019-12-03 | XMS | Encounter Summary ---
Demographics + + + | Address | [address] | | | [place] [address] | + + + | Home Phone [...] Author | [facility] [employer] [facility] | + + + | Organization | [facility] [employer] [facility] | + + + | Address | Unknown | + + + | Phone | Unavailable | + + + Support + + +---------+ + | Name | Relationship | Address | Phone | + + +---------+ + | Kaylie Baig | ECON | Unknown | | + + +---------+ + Care Team Providers + +------+ + | Care Vendette Name | Role | Phone | + [...] | | | 2018 | Event | [address] | [address] | | | | | [facility] | [address], | | | | | Hospital Admitting | [place] [address] | | | | | Desk Located on the | [phone] | | | | | 9th floor | | | | | | [place], [place] | Patti Forte MD | | | | | [address] | [address] | | | | | | [address] [facility] | | | | | | [place] [address] | | | | | | [phone] | | | | | | | [...] | Right; head- parietal; 11/05/17; | Katrin Wtason RN | Debby Lewis, | | | [...]
--- OUTSIDE RECORDS SUMMARY | ~2019-12-03 | XMS | Encounter Summary ---
Demographics + + + | Address | [address] | | | [place] [address] | + + + | Home Phone [...] | Author | [facility] [employer] [facility] | + + + | Organization | [facility] [employer] [facility] | + + + | Address | Unknown | + + + | Phone | Unavailable | + + + Support + + +---------+ + | Name | Relationship | Address | Phone | + + +---------+ + | Kaylie Baig | ECON | Unknown | | + + +---------+ + Care Team Providers + +------+ + | Care Security Shift Supervisor Name | Role | Phone | [...] [address] | | | | | [facility] | [address] | | | | | Hospital Admitting | [place], [place] | | | | | Desk Located on the | [address] | | | | | 9th floor | [phone] | | | | | [place], [place] | | | | | | [address] | Mariann Victor CRNA | | | | | | [address] | | | | | | [address] | | | | | | [place], [place] | | | | | | [address] | | | | | | [phone] | | | | | | | [...] | | | | Lumen | Yes; [id number]; 11/09/17; 1154; | | | | | [...] | + +--------+ + + + | WALDO ETT | Routin | 11/05/2017 | | [...] PDT | | | | | Until e 11/05/17 at 1905 | | | | [...] 30 mg | | | | Starting Sat11/05/17 at 1550, | | 18 4:30 | | | | | Until Sat11/05/17 at 1905 | | PM PDT | [...]
--- OUTSIDE RECORDS SUMMARY | ~2019-12-03 | XMS | Encounter Summary ---
Demographics + + + | Address | [address] | | | [place] [address] | + + + | Home Phone [...] + + | Author | [facility] [employer] [facility] | + + + | Organization | [facility] [employer] [facility] | + + + | Address | Unknown | + + + | Phone | Unavailable | + + + Support + + +---------+ + | Name | Relationship | Address | Phone | + + +---------+ + | Kaylie Baig | ECON | Unknown | | + + +---------+ + Care Team Providers + +------+ + | Care Senior Network Administrator Name | Role | Phone | [...] | | | | Rd [facility] | | | | | | Hospital Admitting | | | | | | Desk Located on the | | | | | | 9th floor | | | | | | [place], [place] | | | | | | [address] | | | +--------+ + + + [...]
--- OUTSIDE RECORDS SUMMARY | ~2019-12-03 | XMS | Encounter Summary ---
Demographics + + + | Address | [address] | | | [place] [address] | + + + | Home Phone [...] Author | [facility] [employer] [facility] | + + + | Organization | [facility] [place] [employer] [facility] | + + + | Address | Unknown | + + + | Phone | Unavailable | + + + Support + + +---------+ + | Name | Relationship | Address | Phone | + + +---------+ + | Kaylie Baig | ECON | Unknown | | + + +---------+ + Care Team Providers + +------+ + | Care Forklift Operator Name | Role | Phone | [...] | 2017 | Pass | Services at [facility] | | | | | | [address] | | | | | | [address] | | | | | | [facility], [address] [place] [address] | | | | | | [place], [place] | | | | | | [address] | | | | | | [phone] | | | +--------+ + + + [...]
--- OUTSIDE RECORDS SUMMARY | ~2019-12-03 | XMS | Encounter Summary ---
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 [facility] | [address] | [place] [address] | | | [facility] | [...] + + + | Glucose | 98Comment: Palestinian | 65 - 99 mg/dL | [facility] [...] + | NIALL ANDRE[facility] | [address] | [place] [address] | | | [facility] | | | | | LABORATORY | | | | + + + + + Hemoglobin A1C (03/18/2017 4:17 AM PST) + + + + + + | Component | Value | Ref Range | Performed | Pathologist | | | | | At | Signature | + + + + + + | Hemoglobin | 5.2Comment: The Palestinian | 4.3 - 6.1 % | [facility] [...] [facility] | [address] | [place] [address] | | | [facility] | | | | | [...] + | [facility] | [address] | [place] [address] | | | [facility] | | | | | LABORATORY | [...] + | NIALL ANDREWS | [address] | [place] [address] | | | [facility] | | | | | [...] 28 | 21 - 28 mmol/L | [facility] | | | | | | [facility] | | | | | | HEART | | | | | | MEDICAL | | | | | | CENTER | | | | | | LABORATORY | | + + + + + + | Glucose | 198 (H)Comment: Palestinian | 65 - 99 mg/dL | [facility] | | | | Diabetes Association | [...] [address] | [place] [address] | | | [facility] | | | | | LABORATORY | [...] + | [facility] | [address] | [place] [address] | | | [facility] | | | | | LABORATORY | [...] + | NIALL ANDREWS | [address] | [place] [address] | | | [facility] | | | | | [...] + + | Performing | Address | City/State/[facility] Cent[facility]ode | Phone Number | | Organization [...] + | [facility] | [address] | [place] [address] | | | [facility] | [...] - 1.030 | [facility] | | | [place] | | | [facility] | | | [...] + + | CHARISSENOEMadiha ANDREWS | [address] | [place] [address] | | | [facility] | | | | | LABORATORY | [...] SACRED | [address] | [place] [address] | | | [facility] | | | | | LABORATORY | [...] + | [facility] | [address] | [place] [address] | | | [facility] | | | | | LABORATORY | [...] + + | Glucose | 125 (H)Comment: Palestinian | 65 - 99 mg/dL | [facility] [...] + | CHARISSENOEMadiha ANDREWS | [address] [place] [address]. | [place] [address] | | | [facility] | | | | | LABORATORY | [...] + + | NIALL SACRMIKE | [address] | [place] [address] | | | [facility] | [...] | | | | | | use Hermon 10/325 if ordered. If | | | [...] | | | | | | use Hermon 10/325 if ordered. If | | | [...] scheduled: AC, | | | NPO, Daytime 9501-2431 Use NIGHT | | | DOSE for doses scheduled: | | | HS, 3AM, Nighttime 0759-3697 Only | | | for use with [...]
--- OUTSIDE RECORDS SUMMARY | ~2019-12-03 | XMS | Encounter Summary ---
Demographics + + + | Address | [address] | | | [place] [address] | + + + | Home Phone [...] + + | Author | [facility] | + + + | Organization | [facility] [employer] [facility] | [...] Team Providers + +------+ + | Care Roving Frame Tender Name | Role | Phone [...] | | | | | [facility] | [address] | | | | | Hospital Admitting | [place], [place] | | | | | Desk Located on the | [address] | | | | | 9th floor | [phone] | | | | | [place], [place] | | | | | | [address] | Jennifer Henderson CRNA | | | | | | [address] | | | | | | Nola Tovar [facility] | | | | | | [place] [address] | | | | | | [phone] | | | | | | | [...] centrally accessed); | | | | | [id number]; 10/22/17; 1542; | | | | | [...] 1733 by | | g Tube | ([facility] low profile g-tube 18 fr | aKtrin [place] RN | Doreen Lopez RN | [...] by | 10/12/171731 by | | | (eden 19fr channel drain); | Valeria Seth RN [...]
--- OUTSIDE RECORDS SUMMARY | ~2019-12-03 | XMS | Encounter Summary ---
Demographics + + + | Address | [address] | | | [place] [address] | + + + | Home Phone [...] + + + | Author | [facility] | + + + | Organization | [facility] [employer] [facility] | + + [...] Providers + +------+ + | Care Medical Records Administrator Name | Role | Phone | [...] | | 2018 | anned | Services [id number] | | | | | | [address] | | | | | | Mailcode: [id number] | | | | | | [facility] | | | | | | [place], [place] | | | | | | [address] | | | | | | [phone] | | | +--------+ + + + [...]
--- OUTSIDE RECORDS SUMMARY | ~2019-12-03 | XMS | Encounter Summary ---
Demographics + + + | Address | [address] | | | [place] [address] | + + + | Home Phone [...] | Author | [facility] | + + + | Organization | [facility] [employer] [facility] | + [...] Providers + +------+ + | Care Staff Assistant Name | Role | Phone | [...] RUST | | | | | | [address] | | | | | | [place] | | | | | | [facility], [address] [place] [address] | | | | | | [place], [place] | | | | | | [address] | | | | | | [phone] | | | +--------+ + + + [...]
--- OUTSIDE RECORDS SUMMARY | ~2019-12-03 | XMS | Encounter Summary ---
Demographics + + + | Address | [address] | | | [place] [address] | + + + | Home Phone [...] + | Author | [facility] | + + + | Organization | [facility] | + + + | Address | Unknown | + + + | Phone | Unavailable | + + + Support + + +---------+ + | Name | Relationship | Address | Phone | + + +---------+ + | Kaylie Baig | ECON | Unknown | | + + +---------+ + Care Team Providers + +------+ + | Care Evidence Technician Name | Role | Phone | [...] | 2017 | Pass | Services at [facility] | | | | | | [address] | | | | | | [place] | | | | | | [facility], [address] [place] [address] | | | | | | [place], [place] | | | | | | [address] | | | | | | [phone] | | | +--------+ + + + [...]
--- OUTSIDE RECORDS SUMMARY | ~2019-12-03 | XMS | Encounter Summary ---
Demographics + + + | Address | [address] | | | [place] [address] | + + + | Home Phone [...] + + | Author | [facility] [employer] [facility] | + + + | Organization | [facility] [employer] [facility] | + + + | Address | Unknown | + + + | Phone | Unavailable | + + + Support + + +---------+ + | Name | Relationship | Address | Phone | + + +---------+ + | Kaylie Baig | ECON | Unknown | | + + +---------+ + Care Team Providers + +------+ + | Care Contact Finger Assembler Name | Role | Phone | [...] | | | | | [facility] | [address] | | | | | Hospital Admitting | [place], [place] | | | | | Desk Located on the | [address] | | | | | 9th floor | [phone] | | | | | [place], [place] | | | | | | [address] | Jennifer Henderson CRNA | | | | | | [address] | | | | | | Nola Tov[place] [facility] | | | | | | [place] [address] | | | | | | [phone] | | | | | | | [...] centrally accessed); | | | | | [id number]; 10/22/17; 1542; | | | | | [...] by | | g Tube | ([facility] low profile g-tube 18 fr | [...] by | 10/12/171731 by | | | (leonard 19fr channel drain); | Valeria Seth RN [...]
--- OUTSIDE RECORDS SUMMARY | ~2019-12-03 | XMS | Encounter Summary ---
Demographics + + + | Address | [address] | | | [place] [address] | + + + | Home Phone [...] + + + | Author | [facility] | + + + | Organization | [facility] | + [...] Team Providers + +------+ + | Care Recruitment Coordinator Name | Role | Phone | [...] | 2018 | Pass | Services at [facility] | | | | | | [address] | | | | | | [place] | | | | | | [facility], [address] [place] [address] | | | | | | [place], [place] | | | | | | [address] | | | | | | [phone] | | | +--------+ + + + [...]
--- OUTSIDE RECORDS SUMMARY | ~2019-12-03 | XMS | Encounter Summary ---
Demographics + + + | Address | [address] | | | [place] [address] | + + + | Home Phone [...] Author | [facility] [employer] [facility] | + + + | Organization | [facility] [employer] [facility] | + + + | Address | Unknown | + + + | Phone | Unavailable | + + + Support + + +---------+ + | Name | Relationship | Address | Phone | + + +---------+ + | Kaylie Baig | ECON | Unknown | | + + +---------+ + Care Team Providers + +------+ + | Care Incident Response Coordinator Name | Role | Phone | [...] HOSPITAL | | | | | | [address] | | | | | | [place] | | | | | | [facility], [address] [place] [address] | | | | | | [place], [place] | | | | | | [address] | | | | | | [phone] | | | +--------+ + + + [...]
--- OUTSIDE RECORDS SUMMARY | ~2019-12-03 | XMS | Encounter Summary ---
Demographics + + + | Address | [address] | | | [place] [address] | + + + | Home Phone [...] | Author | [facility] [employer] [facility] | + + + | Organization | [facility] [employer] [facility] [...] Team Providers + +------+ + | Care Foreign Clerk Name | Role | Phone | [...] floor | | | | | | [place], [place] | | | | | | [address] | | | +--------+ + + + [...]
--- OUTSIDE RECORDS SUMMARY | ~2019-12-03 | XMS | Encounter Summary ---
Demographics + + + | Address | [address] | | | [place] [address] | + + + | Home Phone [...] | Author | [facility] [employer] [facility] | + + + | Organization | [facility] [employer] [facility] [...] Providers + +------+ + | Care Machine Candle Molder Name | Role | Phone | + [...] | | | | | | [address] [facility] | | | | | | Hospital Admitting | | | | | | Desk Located on the | | | | | | 9th floor | | | | | | [place], [place] | | | | | | [address] | | | +--------+ + + + [...]
--- OUTSIDE RECORDS SUMMARY | ~2019-12-03 | XMS | Encounter Summary ---
Demographics + + + | Address | [address] | | | [place] [address] | + + + | Home Phone [...] | Author | [facility] [employer] [facility] | + + + | Organization | [facility] [employer] [facility] | + [...] Team Providers + +------+ + | Care Management Sme Name | Role | Phone | + [...] | | | | | Procedures | [place], [place] | [place] | | | | | [place]QUEST TO | [address] | [address] | | | | | SURGERY | Phone: | Phone: | | | | | DISPATCHER SHIP PILOT | [phone] | [phone] | | | | | [place] REPLACE | Fax: | Fax: | | | | | SKULL | [phone] | [phone] | | | | | PLATE/FLAP | | | | | | | [place] REPAIR | | | | | | | SKULL | | | | | | | DEFECT,UP TO | | | | | | | 5CM [place] | | | | | | | REPAIR SKULL | | | | | | | DEFECT,>5CM | | | | | | | [place] | | | | | | | [...] + + + + | 10/31/ | Mold Cleaning And Storage Supervisor | [facility] | Magdiel Stock MD | Skull defect | | 2018 | | [facility] [address] | [address] | (Primary Dx) | | | | annabelel [place] for | [place], | | | | | [facility], | [place] [address] | | | | | [place] [address] | [phone] | | | | | [place], [place] | | | | | | [address] | | | | | | [phone] | | | +--------+ + + + [...]
--- OUTSIDE RECORDS SUMMARY | ~2019-12-03 | XMS | Encounter Summary ---
Demographics + + + | Address | [address] | | | [place] [address] | + + + | Home Phone [...] + | Author | [facility] | + + + | Organization | [facility] | + + + | Address | Unknown | + + + | Phone | Unavailable | + + + Support + + +---------+ + | Name | Relationship | Address | Phone | + + +---------+ + | Kaylie Baig | ECON | Unknown | | + + +---------+ + Care Team Providers + +------+ + | Care Heavy Equipment Technician Name | Role | Phone | [...] HOSPITAL | | | | | | [address] | | | | | | [place] | | | | | | [facility], [address] [place] [address] | | | | | | [place], [place] | | | | | | [address] | | | | | | [phone] | | | +--------+ + + + [...]
--- OUTSIDE RECORDS SUMMARY | ~2019-12-03 | XMS | Encounter Summary ---
Demographics + + + | Address | [address] | | | [place] [address] | + + + | Home Phone [...] Author | [facility] [employer] [facility] | + + + | Organization | [facility] [employer] [facility] | + + + | Address | Unknown | + + + | Phone | Unavailable | + + + Support + + +---------+ + | Name | Relationship | Address | Phone | + + +---------+ + | Kaylie Baig | ECON | Unknown | | + + +---------+ + Care Team Providers + +------+ + | Care Market Basket Maker Name | Role | Phone | [...] floor | | | | | | [place], [place] | | | | | | [address] | | | +--------+ + + + [...]
--- OUTSIDE RECORDS SUMMARY | ~2019-12-03 | XMS | Encounter Summary ---
Demographics + + + | Address | [address] | | | [place] [address] | + + + | Home Phone [...] + + | Author | [facility] | + + + | Organization | [facility] [employer] [facility] [...] Team Providers + +------+ + | Care Chronic Condition Nurse Name | Role | Phone | [...] Chambers | | | | | Guy [facility] | [address] [place], | | | | | Hospital Admitting | [place] [address] | | | | | Desk Located on the | [phone] | | | | | 9th floor | | | | | | [place], [place] | Joslyn Boss, | | | | | [address] | [address] | | | | | | [address] | | | | | | [place], [place] | | | | | | [address] | | | | | | [phone] | | | | | | | [...] + + + | Periph | 08/31/17; [facility]; Right; | 08/31/17 0000 by | 09/05/178 by | | ansley | Hand; 18 g; 09/05/17; 1717; Per | Guera Gresham RN | Barbie Yu RN | | IV | protocol | | | +--------+ + + + | Periph | 08/31/17; [facility]; Right; | 08/31/17 0000 by | [...]
--- OUTSIDE RECORDS SUMMARY | ~2019-12-03 | XMS | Clinical Summary ---
Demographics + + + | Address | [address] | | | [place] [address] | + + + | Home Phone [...] Team Providers + +------+ + | Care Plastics Seasoner Operator Name | Role | Phone | + +------+ + | No Pcp Per Patient | PCP | Unavailable | + +------+ + Source Comments SELENA is fully live on both [facility] and [facility] In[facility] Allergies No Known Allergies Medications + [...] | / | | MD Magdiel at [facility] | | | | | | /[id number] | | REV LOC | | | | | | 43 | + +------+--------+ +--------+--------+--------+ + + | Description:151mm x 125mm | | FT/Right-Ster | + + + +---+--------+ +---+---+--------+ | Screw Bone 4mm 1.55mm 2.55mm | | Right: | [facility] | | | 04.503 | | Matrixneuro | | Head | | | | .104.0 | | Craniomaxillofacial Titanium | | | | | | 5 / / | | Self Drill Nonsterile - | | | | | | | | [id number]: Qty: 11 | | | | | | | | on 11/05/2017 by Dayami, | | | | | | | | MD Magdiel at [facility] | | | | | | [...] | | | | | | | [id number]: Qty: | | | | | | | | 1Explanted: Qty: 1 on | | | | | | | | 11/05/2017 at [facility] | | | | | | [...] | | | + +--------+ +--------+-------+---------+--------+ | ANIMAL ASSISTED THERAPIST MEDICAID | ANIMAL ASSISTED THERAPIST | [id number] | 08/28/19 | | | [...] Person | Self | [birth year] | | [address] | | | al/Fam | | 3 | [phone] | [place] [address] | | | taras | | | 6 (Home) | | + +--------+ +--------+ + + | [place] | Third | Self | [birth year] | | [address] | | | Alliance Party | | 1950 | [id number] | [place] [address] | | | Liabil | | | [...]
--- OUTSIDE RECORDS SUMMARY | ~2019-12-03 | XMS | Encounter Summary ---
Demographics + + + | Address | [address] | | | [place] [address] | + + + | Home Phone [...] + + | Author | [facility] | + + + | Organization | [facility] [...] Providers + +------+ + | Care Supervisor Body Assembly Name | Role | Phone | + [...] | | | | | | Rd [facility] | | | | | | Hospital Admitting | | | | | | Desk Located on the | | | | | | 9th floor | | | | | | [place], [place] | | | | | | [address] | | | +--------+ + + + [...]
--- OUTSIDE RECORDS SUMMARY | ~2019-12-03 | XMS | Encounter Summary ---
Demographics + + + | Address | [address] | | | [place] [address] | + + + | Home Phone [...] + | Author | [facility] [employer] [facility] | + + + | Organization | [facility] [employer] [facility] | + + + | Address | Unknown | + + + | Phone | Unavailable | + + + Support + + +---------+ + | Name | Relationship | Address | Phone | + + +---------+ + | Kaylie Baig | ECON | Unknown | | + + +---------+ + Care Team Providers + +------+ + | Care Fretted String Instrument Repairer Name | Role | Phone | + [...] | | | | | | [place], [place] | | | | | | [address] | | | +--------+ + + + [...]
--- OUTSIDE RECORDS SUMMARY | ~2019-12-03 | XMS | Encounter Summary ---
Demographics + + + | Address | [address] | | | [place] [address] | + + + | Home Phone [...] + | Author | [facility] [employer] [facility] | + + + | Organization | [facility] [employer] [facility] | + + [...] Providers + +------+ + | Care Director Marketing Analytics Name | Role | Phone | + [...] Chambers | | | | | Guy [facility] | [address] [place], | | | | | Hospital Admitting | [place] [address] | | | | | Desk Located on the | [phone] | | | | | 9th floor | | | | | | [place], [place] | Patti Forte [place] | | | | | [address] | [address] | | | | | | Nola Tovar [facility] | | | | | | [place] [address] | | | | | | [phone] | | | | | | | [...]
--- OUTSIDE RECORDS SUMMARY | ~2019-12-03 | XMS | Encounter Summary ---
Demographics + + + | Address | [address] | | | [place] [address] | + + + | Home Phone [...] Author | [facility] | + + + | Organization | [facility] [employer] [facility] | [...] Providers + +------+ + | Care Industrial Registered Nurse Name | Role | Phone [...] [address] | | | | | Guy [facility] | [address] | | | | | Hospital Admitting | [place], [place] | | | | | Desk Located on the | [address] | | | | | 9th floor | [phone] | | | | | [place], [place] | | | | | | [address] | Joslyn Boss, | | | | | | [address] | | | | | | [address] | | | | | | [place], [place] | | | | | | [address] | | | | | | [phone] | | | | | | | [...]
--- OUTSIDE RECORDS SUMMARY | ~2019-12-03 | XMS | Encounter Summary ---
Demographics + + + | Address | [address] | | | [place] [address] | + + + | Home Phone [...] + | Author | [facility] [employer] [facility] | + + + | Organization | [facility] [employer] [facility] [...] Team Providers + +------+ + | Care Mortgage Funder Name | Role | Phone | + [...] | | | | | [facility] | [address] | | | | | Hospital Admitting | [place], [place] | | | | | Desk Located on the | [address] | | | | | 9th floor | [phone] | | | | | [place], [place] | | | | | | [address] | Mariann Victor CRNA | | | | | | [address] | | | | | | [address] | | | | | | [place], [place] | | | | | | [address] | | | | | | [phone] | | | | | | | [...] | | | | Lumen | Yes; [id number]; 11/09/17; 1154; | | | | | [...]
--- OUTSIDE RECORDS SUMMARY | ~2019-12-03 | XMS | Clinical Summary ---
Demographics + + + | Address | [address] | | | [place] [address] | + + + | Home Phone [...] Team Providers + +------+ + | Care Textile Finisher Name | Role | Phone | + +------+ + | No Pcp Per Patient | PCP | Unavailable | + +------+ + Source Comments SELENA is fully live on both [facility] and [facility] Allergies No Known Allergies Medications + + [...] | / | | MD Magdiel at [facility] | | | | | | /[id number] | | REV LOC | | | | | | 43 | + +------+--------+ +--------+--------+--------+ + + | Description:151mm x 125mm | | FT/Right-Ster | + + + +---+--------+ +---+---+--------+ | Screw Bone 4mm 1.55mm 2.55mm | | Right: | [facility] | | | 04.503 | | Matrixneuro | | Head | | | | .104.0 | | Craniomaxillofacial Titanium | | | | | | 5 / / | | Self Drill Nonsterile - | | | | | | | | [id number]: Qty: 11 | | | | | | | | on 11/05/2017 by Dayami, | | | | | | | | MD Magdiel at [facility] | | | | | | [...] | | | | | | | [id number]: Qty: | | | | | | | | 1Explanted: Qty: 1 on | | | | | | | | 11/05/2017 at [facility] | | | | | | [...] | | | + +--------+ +--------+-------+---------+--------+ | COVERER MEDICAID | COVERER | xxxxxxxx | 08/28/19 | | | [...] Person | Self | [birth year] | | [address] | | | al/Fam | | 3 | [phone] | [place] [address] | | | taras | | | 6 (Home) | | + +--------+ +--------+ + + | [place] | Third | Self | [birth year] | | [address] | | | [employer] Party | | 1950 | [id number] | [place] [address] | | | Liabil | | | [...]
--- OUTSIDE RECORDS SUMMARY | ~2019-12-03 | XMS | Encounter Summary ---
Demographics + + + | Address | [address] | | | [place] [address] | + + + | Home Phone [...] | Author | [facility] | + + + | Organization | [facility] [employer] [facility] | + + + | Address | Unknown | + + + | Phone | Unavailable | + + + Support + + +---------+ + | Name | Relationship | Address | Phone | + + +---------+ + | Kaylie Baig | ECON | Unknown | | + + +---------+ + Care Team Providers + +------+ + | Care Co Founder And Chief Strategy Officer Name | Role | Phone | [...] | 2018 | Pass | Services at [facility] | | | | | | [address] | | | | | | [place] | | | | | | [facility], [address] [place] [address] | | | | | | [place], [place] | | | | | | [address] | | | | | | [phone] | | | +--------+ + + + [...]
--- OUTSIDE RECORDS SUMMARY | ~2019-12-03 | XMS | Encounter Summary ---
Demographics + + + | Address | [address] | | | [place] [address] | + + + | Home Phone [...] | Author | [facility] [employer] [facility] | + + + | Organization | [facility] [employer] [facility] [...] Team Providers + +------+ + | Care Engineering Laboratory Technician Name | Role | Phone | [...] floor | | | | | | [place], [place] | | | | | | [address] | | | +--------+ + + + [...]
--- OUTSIDE RECORDS SUMMARY | ~2019-12-03 | XMS | Encounter Summary ---
Demographics + + + | Address | [address] | | | [place] [address] | + + + | Home Phone [...] + + | Author | [facility] [employer] [facility] | + + + | Organization | [facility] [employer] [facility] | + + + | Address | Unknown | + + + | Phone | Unavailable | + + + Support + + +---------+ + | Name | Relationship | Address | Phone | + + +---------+ + | Kaylie Baig | ECON | Unknown | | + + +---------+ + Care Team Providers + +------+ + | Care Golf Ball Winder Name | Role | Phone | [...] floor | | | | | | [place], [place] | | | | | | [address] | | | +--------+ + + + [...]
--- OUTSIDE RECORDS SUMMARY | ~2019-12-03 | XMS | Encounter Summary ---
Demographics + + + | Address | [address] | | | [place] [address] | + + + | Home Phone [...] + | Author | [facility] | + + + | Organization | [facility] | + + + | Address | Unknown | + + + | Phone | Unavailable | + + + Support + + +---------+ + | Name | Relationship | Address | Phone | + + +---------+ + | Kaylie Baig | ECON | Unknown | | + + +---------+ + Care Team Providers + +------+ + | Care Accounting Analyst Name | Role | Phone | [...] | | | | | | [place], [place] | | | | | | [address] | | | +--------+ + + + [...]
--- OUTSIDE RECORDS SUMMARY | ~2019-12-03 | XMS | Encounter Summary ---
Demographics + + + | Address | [address] | | | [place] [address] | + + + | Home Phone [...] | [facility] | + + + | Organization | [facility] [employer] [facility] | + + + | Address | Unknown | + + + | Phone | Unavailable | + + + Support + + +---------+ + | Name | Relationship | Address | Phone | + + +---------+ + | Kaylie Baig | ECON | Unknown | | + + +---------+ + Care Team Providers + +------+ + | Care Nib Finisher Name | Role | Phone | [...] Pharmacy | | | | | | [address] | | | | | | [place], [place] | | | | | | [address] | | | | | | [phone] | | | +--------+ + + + [...]
--- OUTSIDE RECORDS SUMMARY | ~2019-12-03 | XMS | Encounter Summary ---
Demographics + + + | Address | [address] | | | [place] [address] | + + + | Home Phone [...] | Author | [facility] | + + + | Organization | [facility] [employer] [facility] | [...] Providers + +------+ + | Care Industrial Safety Engineer Name | Role | Phone | [...] | | 2018 | anned | Services [id number] | | | | | | [address] | | | | | | Mailcode: [id number] | | | | | | [facility] | | | | | | [place], [place] | | | | | | [address] | | | | | | [phone] | | | +--------+ + + + [...]
--- OUTSIDE RECORDS SUMMARY | ~2019-12-03 | XMS | Encounter Summary ---
Demographics + + + | Address | [address] | | | [place] [address] | + + + | Home Phone [...] Author | [facility] | + + + | Organization | [facility] [employer] [facility] | + + + | Address | Unknown | + + + | Phone | Unavailable | + + + Support + + +---------+ + | Name | Relationship | Address | Phone | + + +---------+ + | Kaylie Baig | ECON | Unknown | | + + +---------+ + Care Team Providers + +------+ + | Care Tunnel Kiln Operator Name | Role | Phone | [...] | | | | Rd [facility] | | | | | | Hospital Admitting | | | | | | Desk Located on the | | | | | | 9th floor | | | | | | [place], [place] | | | | | | [address] | | | +--------+ + + + [...]
[~2019-12-03 11:14] MED LIST changes: +TRAMADOL HCL50 MG PO
[2019-12-03] MEDS ORDERED: KEPPRA500 MG PO (14:43)
== END 2019-12-03 15:08 | disposition home or self-care (01) ==
LOC: ED 11:14
DX: G40.909 Epilepsy, unspecified, not intractable, without status epilepticus (principal); F10.129 Alcohol abuse with intoxication, unspecified; F17.200 Nicotine dependence, unspecified, uncomplicated; Z79.899 Other long term (current) drug therapy
CPT/HCPCS: 70450; 80053; 81001; 82542; 83735; 85025; 96374; 99284-25; G0480; J1953; J3411; J7030

== ENCOUNTER 2019-12-07 00:14 | Emergency (ER) | payer OTHER ==
[~2019-12-07] VITALS: Ht 165.1 cm; Wt 70.7 kg
[2019-12-07] MEDS ORDERED: PROTONIX40 MG PO (06:33)
[2019-12-07] MEDS ORDERED: ZOFRAN4 MG PO (06:33)
== END 2019-12-07 01:09 | disposition home or self-care (01) ==
LOC: ED 00:14
DX: S42.032A Displaced fracture of lateral end of left clavicle, initial encounter for closed fracture (principal); S42.212A Unspecified displaced fracture of surgical neck of left humerus, initial encounter for closed fracture; F10.129 Alcohol abuse with intoxication, unspecified; G40.909 Epilepsy, unspecified, not intractable, without status epilepticus; F17.200 Nicotine dependence, unspecified, uncomplicated; R07.89 Other chest pain; X58.XXXA Exposure to other specified factors, initial encounter
CPT/HCPCS: 71045; 99285-25

== ENCOUNTER 2019-12-07 05:14 | Emergency (ER) | payer OTHER ==
[~2019-12-07] VITALS: Ht 165.1 cm; Wt 70.7 kg
[2019-12-07] MEDS ORDERED: ZOFRAN4 MG PO (06:33)
[2019-12-07] MEDS ORDERED: PROTONIX40 MG PO (06:33)
== END 2019-12-07 06:43 | disposition home or self-care (01) ==
LOC: ED 05:14
DX: K29.20 Alcoholic gastritis without bleeding (principal); F17.200 Nicotine dependence, unspecified, uncomplicated
CPT/HCPCS: 80053; 85025; 85610; 85730; 99285

== ENCOUNTER 2019-12-20 01:10 | Emergency (ER) | payer OTHER ==
[~2019-12-20] VITALS: Ht 165.1 cm; Wt 70.7 kg
--- OUTSIDE RECORDS SUMMARY | ~2019-12-20 | XMS | Encounter Summary ---
Demographics + + + | Address | [address] | | | [place] [address] | + + + | Home Phone | | + + + | Preferred Language | Unknown | + + + | Marital Status | Single | + + + | Amish Affiliation | PEN | + + + | Race | or | + + + | Ethnic Group | Not or | + + + Author + + + | Author | [facility] [employer] [facility] | + + + | Organization | [facility] [employer] [facility] | + + + | Address | Unknown | + + + | Phone | Unavailable | + + + Support + + +---------+ + | Name | Relationship | Address | Phone | + + +---------+ + | Kaylie Baig | ECON | Unknown | | + + +---------+ + Care Team Providers + +------+ + | Care Engraver Seals Name | Role | Phone | + +------+ + | No Pcp Per Patient | PCP | Unavailable | + +------+ + Encounter Details +--------+ + + + + | Date | Type | Department | Care Team | Description | +--------+ + + + + | 09/11/ | Procedure | Diagnostic Imaging | | | | 2017 | Pass | Services at [facility] | | | | | | [address] | | | | | | [place] | | | | | | [facility], [address] [place] [address] | | | | | | [place], [place] | | | | | | [address] | | | | | | [phone] | | | +--------+ + + + [...] on file | | + + + documented as of this [...] filedocumented as of this encounter Visit Diagnoses Not on filedocumented in this encounter"
--- OUTSIDE RECORDS SUMMARY | ~2019-12-20 | XMS | Encounter Summary ---
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 Specimen | + + | | + + + + + | Narrative | Performed At | + + + | | | + + + + + + + + | Performing | Address | City/State/Zipcode | Phone Number | | Organization | | | | + + + + + | [facility] | [address] | [place], [place] | | | CARDIOLOGY | [address] | [address] | | + + + + + VASC LAB VENOUS DUPLEX LOWER EXTREMITY BILAT COMP (12/03/2017 11:26 AM PDT) + + | Specimen | + + | | + + + + + | Narrative | Performed At | + + + | Bilateral: The duplex scanner was used to examine the deep and | [facility] | | superficial veins of the right and left lower extremities. The | RADIOLOGY VASC | | veins are patent bilaterally with normal flow and responses to | [facility] | | augmentation and compression maneuvers and no thrombus is noted. | | | Conclusions: A normal venous examination of the bilateral lower | | | extremities. No venous thrombosis was detected. I have | | | personally reviewed the images and, if necessary, edited the report. | | | I agree with the report as now presented. | | + + + + + | Procedure Note | + + | Service Account, [facility]ickies Res In Interface - 12/03/2017 4:56 PM PDT Bilateral: The | | duplex scanner was used to examine the deep and superficial veins of the right and left | | lower extremities. The veins are patent bilaterally with normal flow and responses to | | augmentation and compression maneuvers and no thrombus is noted.Conclusions: A normal | | venous examination of the bilateral lower extremities. No venous thrombosis was | | detected.I have personally reviewed the images and, if necessary, edited the report. I | | agree with the report as now presented. | | | | | |I have personally reviewed the images and, if necessary, edited the report. I agree with t he report as now presented. | + + + +---------+ + + | Performing | Address | City/State/Zipcode | Phone Number | | Organization | | | | + +---------+ + + | [facility] | | | | | VASC US | | | | + +---------+ + + CBC (HEMOGRAM) ONLY (12/03/2017 8:02 AM PDT) + + + + + + | Component | Value | Ref Range | Performed | Pathologist | | | | | At | Signature | + + + + + + | WHITE CELL | 9.11 | 3.50 - 10.80 | [facility] | | | COUNT | | K/cu mm | LABORATORY | | | | | | SERVICES, | | | | | | CORE | | + + + + + + | RED CELL | 4.18 (L) | 4.50 - 6.00 | [facility] | | | COUNT | | M/cu mm | LABORATORY | | | | | | SERVICES, | | | | | | CORE | | + + + + + + | HEMOGLOBIN | 12.0 (L) | 13.5 - 17.5 | [facility] | | | | | g/dL | LABORATORY | | | | | | SERVICES, | | | | | | CORE | | + + + + + + | HEMATOCRIT | 37.9 (L) | 41.0 - 53.0 % | [facility] | | | | | | LABORATORY | | | | | | SERVICES, | | | | | | CORE | | + + + + + + | MCV | 90.7 | 80.0 - 100.0 fL | [facility] | | | | | | LABORATORY | | | | | | SERVICES, | | | | | | CORE | | + + + + + + | MCHC | 31.7 (L) | 32.0 - 36.0 | [facility] | | | | | g/dL | LABORATORY | | | | | | SERVICES, | | | | | | CORE | | + + + + + + | RDW SD | 48.2 (H) | 35.1 - 46.3 fL | [facility] | | | | | | LABORATORY | | | | | | SERVICES, | | | | | | CORE | | + + + + + + | PLATELET | 204 | 150 - 400 K/cu | [facility] | | | COUNT | | mm | LABORATORY | | | | | | SERVICES, | | | | | | CORE | | + + + + + + | MPV | 9.2 (L) | 9.7 - 12.3 fL | [facility] | | | | | | LABORATORY | | | | | | SERVICES, | | | | | | CORE | | + + + + + + | NRBC% | 0.0 | 0.0 - 0.3 % | [facility] | | | | | | LABORATORY | | | | | | SERVICES, | | | | | | CORE | | + + + + + + | NRBC# | 0.00 | 0.00 - 0.02 | [facility] | | | | | K/cu mm | LABORATORY | | | | | | SERVICES, | | | | | | CORE | | + + + + + + + + | Specimen | + + | Blood - Blood | | (substance) | + + + + + | Narrative | Performed At | + + + | New reference ranges for MCV, MCHC, PLT, IG% and IG# effective | [facility] | | 09/05/2017 | LABORATORY | | | [facility] | + + + + + + + + | Performing | Address | City/State/Zipcode | Phone Number | | Organization | | | | + + + + + | [facility] | [address] | [place] [address] | | | NATALEE WORTH[address] | [address] | | | + + + + + X-RAY ABD TUBE OR CATH EVAL W CONTRAST (12/03/2017 12:55 AM PDT) + + | Specimen | + + | | + + + + + | Narrative | Performed At | + + + | EXAM: ABD TUBE OR CATH EVAL W CONTRAST HISTORY: eval G tube | [facility] | | replacement. COMPARISON: CT chest abdomen pelvis 11/11/2017 | RADIOLOGY VOICE | | FINDINGS: The replaced percutaneous gastrostomy tube is in the | RECOGNITION 2 | | expected position in the left upper quadrant. Contrast injection by | | | the ordering team demonstrates filling of the gastric body without | | | evidence of leak or spillage. Gas is present in several loops of | | | the small and large bowels. Multiple bony fractures at various stages | | | of healing kidney better visualized on CT imaging. IMPRESSION: | | | Appropriate positioning of the replaced percutaneous gastrostomy tube | | | without leak spillage during contrast injection by the ordering team. | | | I have personally reviewed the images and, if necessary, edited | | | the report. I agree with the report as now presented. Final | | | signature: Edelmira Parsons MD 12/03/2017 10:29 AM Preliminary: | | | Mick Spivey MD 12/03/2017 10:25 AM Dictation initiated: Mick Spivey MD | | | 12/03/2017 8:58 AM | | + + + + + | Procedure Note | + + | Service Account, [employer] In Interface - 12/03/2017 10:30 AM PDT EXAM: ABD TUBE OR | | CATH EVAL W CONTRAST HISTORY: eval G tube replacement. COMPARISON: CT chest abdomen | | pelvis 11/11/2017 FINDINGS: The replaced percutaneous gastrostomy tube is in the expected | | position in the left upper quadrant. Contrast injection by the ordering team | | demonstrates filling of the gastric body without evidence of leak or spillage. Gas is | | present in several loops of the small and large bowels. Multiple bony fractures at | | various stages of healing kidney better visualized on CT imaging. IMPRESSION: | | Appropriate positioning of the replaced percutaneous gastrostomy tube without leak | | spillage during contrast injection by the ordering team. I have personally reviewed the | | images and, if necessary, edited the report. I agree with the report as now presented. | | Final signature: Edelmira Parsons MD 12/03/2017 10:29 AM Preliminary: Mick Spivey MD | | 12/03/2017 10:25 AM Dictation initiated: Mick Spivey MD 12/03/2017 8:58 AM | |IMPRESSION: | | | |Appropriate positioning of the replaced percutaneous gastrostomy tube without leak spillage during contrast injection by the ordering team. | | | |I have personally reviewed the images and, if necessary, edited the report. I agree with th e report as now presented. | | | |Final signature: Edelmira Parsons MD 12/03/2017 10:29 AM | |Preliminary: Mick Spivey MD 12/03/2017 10:25 AM | |Dictation initiated: Mick Spivey MD 12/03/2017 8:58 AM | + + + +---------+ + + | Performing | Address | City/State/Zipcode | Phone Number | | Organization | | | | + +---------+ + + | [facility] | | | | | VOICE RECOGNITION 2 | | | | + +---------+ + + 12 LEAD ECG (12/02/2017 3:34 PM PDT) + + + + + + | Component | Value | Ref Range | Performed | Pathologist | | | | | At | Signature | + + + + + + | VENTRICULAR | 93 | bpm | [facility] | | | RATE | | | OF | | | | | | CARDIOLOGY | | + + + + + + | ATRIAL RATE | 93 | ms | [facility] | | | | | | OF | | | | | | CARDIOLOGY | | + + + + + + | P-R | 143 | ms | [facility] | | | INTERVAL | | | OF | | | | | | CARDIOLOGY | | + + + + + + | P AXIS | 58 | deg | [facility] | | | | | | OF | | | | | | CARDIOLOGY | | + + + + + + | QRS | 124 | ms | [facility] | | | DURATION | | | OF | | | | | | CARDIOLOGY | | + + + + + + | QT | 394 | ms | [facility] | | | | | | OF | | | | | | CARDIOLOGY | | + + + + + + | LAUREN | 491 | ms | [facility] | | | | | | OF | | | | | | CARDIOLOGY | | + + + + + + | R AXIS | 87 | deg | [facility] | | | | | | OF | | | | | | CARDIOLOGY | | + + + + + + | T AXIS | 24 | deg | [facility] | | | | | | OF | | | | | | CARDIOLOGY | | + + + + + + | ECG | Sinus rhythm | | [facility] | | | IMPRESSION | | | OF | | | | | | CARDIOLOGY | | + + + + + + | ECG | Right bundle branch | | [facility] | | | IMPRESSION | block | | OF | | | | | | CARDIOLOGY | | + + + + + + | ECG | Borderline prolonged QT | | [facility] | | | IMPRESSION | interval- ABNORMAL ECG - | | OF | | | | | | CARDIOLOGY | | + + + + + + | ECG | Electronically signed | | [facility] | | | IMPRESSION | by: JULIO VIZCAINO | | OF | | | | 12-02-2017 18:24:27 | | CARDIOLOGY | | + + + + + + + + | Specimen | + + | | + + + + + | Narrative | Performed At | + + + | | | + + + + + + + + | Performing | Address | City/State/Zipcode | Phone Number | | Organization | | | | + + + + + | [facility] | [address] | [place], [place] | | | CARDIOLOGY | [address] | [address] | | + + + + + C-REACTIVE PROTEIN (12/02/2017 5:35 AM PDT) + +-------+ + + + | Component | Value | Ref Range | Performed | Pathologist | | | | | At | Signature | + +-------+ + + + | C-REACTIVE | 6.6 | <10.0 mg/L | [facility] | | | PROTEIN | | | LABORATORY | | | | | | SERVICES, | | | | | | CORE | | + +-------+ + + + + + | Specimen | + + | Blood - Blood | | (substance) | + + + + + | Narrative | Performed At | + + + | New method, new reference range and new reporting units as of | [facility] | | 09/30/2013. | LABORATORY | | | SERVICES, CORE | + + + + + + + + | Performing | Address | City/State/Zipcode | Phone Number | | Organization | | | | + + + + + | [facility] | [address] | [place] [address] | | | SERVICES, CORE | [address] | | | + + + + + PREALBUMIN (12/02/2017 5:35 AM PDT) + +-------+ + + + | Component | Value | Ref Range | Performed | Pathologist | | | | | At | Signature | + +-------+ + + + | PREALBUMIN | 24.1 | 17.0 - 42.0 | [facility] | | | | mg/dL | [facility] | | | | | | [place] | | + +-------+ + + + + + | Specimen | + + | Blood - Blood | | (substance) | + + + + + + + | Performing | Address | City/State/Zipcode | Phone Number | | Organization | | | | + + + + + | [facility] | [address] | [place] [address] | | | [place] | | | | + + + + + TRIGLYCERIDES, PLASMA (12/02/2017 5:35 AM PDT) + +-------+ + + + | Component | Value | Ref Range | Performed | Pathologist | | | | | At | Signature | + +-------+ + + + | TRIGLYCERID | 101 | <150 mg/dL | [facility] | | | ES | | | LABORATORY | | | | | | SERVICES, | | | | | | CORE | | + +-------+ + + + + + | Specimen | + + | Blood - Blood | | (substance) | + + + + + | Narrative | Performed At | + + + | Triglyceride Reference Range: Normal: <150 | [facility] | | mg/dL Borderline High: 150-199 mg/dL High: | LABORATORY | | 200-499 mg/dL Very High: >=500 mg/dL | [facility] | + + + + + + + + | Performing | Address | City/State/Zipcode | Phone Number | | Organization | | | | + + + + + | [facility] | [address] | [place] [address] | | | NATALEE WORTH[address] | [address] | | | + + + + + CALCIUM, IONIZED, WHOLE BLOOD (12/02/2017 5:35 AM PDT) + +-------+ + + + | Component | Value | Ref Range | Performed | Pathologist | | | | | At | Signature | + +-------+ + + + | MAHOGANY ICA, | 1.14 | 1.14 - 1.32 | [facility] | | | WHOLE BLD | | mmol/L | LABORATORY | | | | | | SERVICES, | | | | | | CORE | | + +-------+ + + + | PH, WHOLE | 7.43 | | [facility] | | | BLOOD | | | LABORATORY | | | | | | SERVICES, | | | | | | CORE | | + +-------+ + + + | ICA, | 1.16 | 1.14 - 1.28 | [facility] | | | CORRECTED | | mmol/L | LABORATORY | | | TO PH 7.4 | | | SERVICES, | | | | | | CORE | | + +-------+ + + + + + | Specimen | + + | Blood - Blood | | (substance) | + + + + + + + | Performing | Address | City/State/Zipcode | Phone Number | | Organization | | | | + + + + + | [facility] | [address] | [place] [address] | | | SERVICES, CORE | [address] | | | + + + + + LIVER SET (AST,ALT,BILI TOTAL,BILI DIRECT,ALK PHOS,ALB,PROT TOTAL) (12/02/2017 5:35 AM PDT ) + +---------+ + + + | Component | Value | Ref Range | Performed | Pathologist | | | | | At | Signature | + +---------+ + + + | ALBUMIN, | 3.7 | 3.5 - 4.7 g/dL | [facility] | | | PLASMA | | | LABORATORY | | | (LAB) | | | SERVICES, | | | | | | CORE | | + +---------+ + + + | BILIRUBIN | 0.3 | 0.3 - 1.2 mg/dL | [facility] | | | TOTAL | | | LABORATORY | | | | | | SERVICES, | | | | | | CORE | | + +---------+ + + + | BILIRUBIN | 0.1 | 0.0 - 0.3 mg/dL | [facility] | | | DIRECT | | | LABORATORY | | | | | | SERVICES, | | | | | | CORE | | + +---------+ + + + | ALK PHOS | 210 (H) | 53 - 128 U/L | [facility] | | | | | | LABORATORY | | | | | | SERVICES, | | | | | | CORE | | + +---------+ + + + | AST(SGOT) | 28 | <=41 U/L | [facility] | | | | | | LABORATORY | | | | | | SERVICES, | | | | | | CORE | | + +---------+ + + + | ALT (SGPT) | 35 | <=60 U/L | [facility] | | | | | | LABORATORY | | | | | | SERVICES, | | | | | | CORE | | + +---------+ + + + | TOTAL | 7.8 | 6.4 - 8.2 g/dL | [facility] | | | PROTEIN, | | | LABORATORY | | | PLASMA | | | SERVICES, | | | (LAB) | | | CORE | | + +---------+ + + + | AST CMNT | No Hemo | | [facility] | | | | | | LABORATORY | | | | | | SERVICES, | | | | | | CORE | | + +---------+ + + + | BILI T CMNT | No Hemo | | [facility] | | | | | | LABORATORY | | | | | | SERVICES, | | | | | | CORE | | + +---------+ + + + | BRET D CMNT | No Hemo | | [facility] | | | | | | LABORATORY | | | | | | SERVICES, | | | | | | CORE | | + +---------+ + + + + + | Specimen | + + | Blood - Blood | | (substance) | + + + + + + + | Performing | Address | City/State/Zipcode | Phone Number | | Organization | | | | + + + + + | [facility] | [address] | [place] [address] | | | SERVICES, CORE | [address] | | | + + + + + RENAL FUNCTION SET (NA,K,CL,CO2,BUN,CREAT,GLUC,CA,PHOS,ALB ) (12/02/2017 5:35 AM PDT) + + + + + + | Component | Value | Ref Range | Performed | Pathologist | | | | | At | Signature | + + + + + + | GLUCOSE, | 89 | 70 - 99 mg/dL | [facility] | | | PLASMA | | | LABORATORY | | | (LAB) | | | SERVICES, | | | | | | CORE | | + + + + + + | BUN, PLASMA | 12 | 6 - 20 mg/dL | [facility] | | | (LAB) | | | LABORATORY | | | | | | SERVICES, | | | | | | CORE | | + + + + + + | CREATININE | 0.51 (L) | 0.70 - 1.30 | [facility] | | | PLASMA | | mg/dL | LABORATORY | | | (LAB) | | | SERVICES, | | | | | | CORE | | + + + + + + | EGFR | >60 | >60 mL/min | [facility] | | | - | | | LABORATORY | | | SUDANESE | | | SERVICES, | | | | | | CORE | | + + + + + + | EGFR NON | >60 | >60 mL/min | [facility] | | | -KAYE | | | LABORATORY | | | RICAN | | | SERVICES, | | | | | | CORE | | + + + + + + | SODIUM, | 140 | 136 - 145 | [facility] | | | PLASMA | | mmol/L | LABORATORY | | | (LAB) | | | SERVICES, | | | | | | CORE | | + + + + + + | POTASSIUM, | 4.0 | 3.4 - 5.0 | [facility] | | | PLASMA | | mmol/L | LABORATORY | | | (LAB) | | | SERVICES, | | | | | | CORE | | + + + + + + | CHLORIDE, | 105 | 97 - 108 mmol/L | [facility] | | | PLASMA | | | LABORATORY | | | (LAB) | | | SERVICES, | | | | | | CORE | | + + + + + + | TOTAL CO2, | 27 | 21 - 32 mmol/L | [facility] | | | PLASMA | | | LABORATORY | | | (LAB) | | | SERVICES, | | | | | | CORE | | + + + + + + | CALCIUM, | 9.6 | 8.6 - 10.2 | [facility] | | | PLASMA | | mg/dL | LABORATORY | | | (LAB) | | | SERVICES, | | | | | | CORE | | + + + + + + | CALCIUM(ALB | 9.8 | 8.6 - 10.2 | [facility] | | | CORRECTED) | | mg/dL | LABORATORY | | | | | | SERVICES, | | | | | | CORE | | + + + + + + | ALBUMIN, | 3.7 | 3.5 - 4.7 g/dL | [facility] | | | PLASMA | | | LABORATORY | | | (LAB) | | | SERVICES, | | | | | | CORE | | + + + + + + | PHOSPHORUS, | 3.9 | 2.4 - 4.7 mg/dL | [facility] | | | PLASMA | | | LABORATORY | | | (LAB) | | | SERVICES, | | | | | | CORE | | + + + + + + | POTASSIUM | No Hemo | | [facility] | | | CMNT | | | LABORATORY | | | | | | SERVICES, | | | | | | CORE | | + + + + + + | ANION GAP | 8 | 4 - 11 mmol/L | [facility] | | | | | | LABORATORY | | | | | | SERVICES, | | | | | | CORE | | + + + + + + | ANION | 8 | 4 - 11 mmol/L | [facility] | | | GAP(ALB | | | LABORATORY | | | CORRECTED) | | | SERVICES, | | | | | | CORE | | + + + + + + + + | Specimen | + + | Blood - Blood | | (substance) | + + + + + | Narrative | Performed At | + + + | GFR is estimated using the MDRD equation recommended by the | [facility] | | National Kidney Disease Education Program. Estimated GFR | LABORATORY | | Interpretive Information: <60 mL/min/1.73 sq m | SERVICES, CORE | | Chronic Kidney Disease <15 mL/min/1.73 sq m | | | Kidney Failure Estimated GFR greater that 60 mL/min/1.73 sq m is of | | | limited clinical value. The MDRD equation is not valid in the | | | following situations: - Patients under 18 years of age - Severe | | | malnutrition or obesity - Vegetarian diet - Rapidly changing kidney | | | function - Amputees, paraplegics, or other muscle-wasting diseses | | + + + + + + + + | Performing | Address | City/State/Zipcode | Phone Number | | Organization | | | | + + + + + | [email or web address] | [address] | [place] [address] | | | SERVICES, NATALEE | [address] | | | + + + + + MAGNESIUM, PLASMA (12/02/2017 5:35 AM PDT) + +-------+ + + + | Component | Value | Ref Range | Performed | Pathologist | | | | | At | Signature | + +-------+ + + + | MAGNESIUM,P | 2.1 | 1.6 - 2.6 mg/dL | [facility] | | | LASMA | | | LABORATORY | | | | | | SERVICES, | | | | | | CORE | | + +-------+ + + + + + | Specimen | + + | Blood - Blood | | (substance) | + + + + + | Narrative | Performed At | + + + | Reference range change effective 12/11/16. | [facility] | | | LABORATORY | | | SERVICES, CORE | + + + + + + + + | Performing | Address | City/State/Zipcode | Phone Number | | Organization | | | | + + + + + | [facility] | [address] | [place] [address] | | | SERVICES, CORE | [address] | | | + + + + + 12 LEAD ECG (11/30/2017 4:03 PM PDT) + + + + + + | Component | Value | Ref Range | Performed | Pathologist | | | | | At | Signature | + + + + + + | VENTRICULAR | 60 | bpm | [facility] | | | RATE | | | OF | | | | | | CARDIOLOGY | | + + + + + + | ATRIAL RATE | 60 | ms | [facility] | | | | | | OF | | | | | | CARDIOLOGY | | + + + + + + | P-R | 137 | ms | [facility] | | | INTERVAL | | | OF | | | | | | CARDIOLOGY | | + + + + + + | P AXIS | 52 | deg | [facility] | | | | | | OF | | | | | | CARDIOLOGY | | + + + + + + | QRS | 125 | ms | [facility] | | | DURATION | | | OF | | | | | | CARDIOLOGY | | + + + + + + | QT | 428 | ms | [facility] | | | | | | OF | | | | | | CARDIOLOGY | | + + + + + + | QTC-BAZETT | 428 | ms | [facility] | | | | | | OF | | | | | | CARDIOLOGY | | + + + + + + | R AXIS | 77 | deg | [facility] | | | | | | OF | | | | | | CARDIOLOGY | | + + + + + + | T AXIS | 31 | deg | [facility] | | | | | | OF | | | | | | CARDIOLOGY | | + + + + + + | ECG | Sinus rhythm | | [facility] | | | IMPRESSION | | | OF | | | | | | CARDIOLOGY | | + + + + + + | ECG | Right bundle branch | | [facility] | | | IMPRESSION | block- ABNORMAL ECG - | | OF | | | | | | CARDIOLOGY | | + + + + + + | ECG | Electronically signed | | [facility] | | | IMPRESSION | by: AJAY DE LOS SANTOS | | OF | | | | 11-30-2017 20:39:16 | | CARDIOLOGY | | + + + + + + + + | Specimen | + + | | + + + + + | Narrative | Performed At | + + + | | | + + + + + + + + | Performing | Address | City/State/Zipcode | Phone Number | | Organization | | | | + + + + + | [facility] | [address] | [place], [place] | | | CARDIOLOGY | [address] | [address] | | + + + + + 12 LEAD ECG (11/29/2017 9:46 AM PDT) + + + + + + | Component | Value | Ref Range | Performed | Pathologist | | | | | At | Signature | + + + + + + | VENTRICULAR | 59 | bpm | [facility] | | | RATE | | | OF | | | | | | CARDIOLOGY | | + + + + + + | ATRIAL RATE | 59 | ms | [facility] | | | | | | OF | | | | | | CARDIOLOGY | | + + + + + + | P-R | 149 | ms | [facility] | | | INTERVAL | | | OF | | | | | | CARDIOLOGY | | + + + + + + | P AXIS | 0 | deg | [facility] | | | | | | OF | | | | | | CARDIOLOGY | | + + + + + + | QRS | 125 | ms | [facility] | | | DURATION | | | OF | | | | | | CARDIOLOGY | | + + + + + + | QT | 419 | ms | [facility] | | | | | | OF | | | | | | CARDIOLOGY | | + + + + + + | QTC-BAMARIA DEL CARMEN | 414 | ms | [facility] | | | | | | OF | | | | | | CARDIOLOGY | | + + + + + + | R AXIS | 86 | deg | [facility] | | | | | | OF | | | | | | CARDIOLOGY | | + + + + + + | T AXIS | 27 | deg | [facility] | | | | | | OF | | | | | | CARDIOLOGY | | + + + + + + | ECG | Sinus bradycardia | | [facility] | | | IMPRESSION | | | OF | | | | | | CARDIOLOGY | | + + + + + + | ECG | Right bundle branch | | [facility] | | | IMPRESSION | block- ABNORMAL ECG - | | OF | | | | | | CARDIOLOGY | | + + + + + + | ECG | Electronically signed | | [facility] | | | IMPRESSION | by: AJAY DE LOS SANTOS | | OF | | | | 11-29-2017 12:53:21 | | CARDIOLOGY | | + + + + + + + + | Specimen | + + | | + + + + + | Narrative | Performed At | + + + | | | + + + + + + + + | Performing | Address | City/State/Zipcode | Phone Number | | Organization | | | | + + + + + | [facility] | [address] | [place], [place] | | | CARDIOLOGY | [address] | [address] | | + + + + + RENAL FUNCTION SET (NA,K,CL,CO2,BUN,CREAT,GLUC,CA,PHOS,ALB ) (11/28/2017 7:07 AM PDT) + + + + + + | Component | Value | Ref Range | Performed | Pathologist | | | | | At | Signature | + + + + + + | GLUCOSE, | 95 | 70 - 99 mg/dL | [facility] | | | PLASMA | | | LABORATORY | | | (LAB) | | | SERVICES, | | | | | | CORE | | + + + + + + | BUN, PLASMA | 12 | 6 - 20 mg/dL | [facility] | | | (LAB) | | | LABORATORY | | | | | | SERVICES, | | | | | | CORE | | + + + + + + | CREATININE | 0.58 (L) | 0.70 - 1.30 | [facility] | | | PLASMA | | mg/dL | LABORATORY | | | (LAB) | | | SERVICES, | | | | | | CORE | | + + + + + + | EGFR | >60 | >60 mL/min | [facility] | | | - | | | LABORATORY | | | SUDANESE | | | SERVICES, | | | | | | CORE | | + + + + + + | EGFR NON | >60 | >60 mL/min | [facility] | | | -KAYE | | | LABORATORY | | | RICAN | | | SERVICES, | | | | | | CORE | | + + + + + + | SODIUM, | 143 | 136 - 145 | [facility] | | | PLASMA | | mmol/L | LABORATORY | | | (LAB) | | | SERVICES, | | | | | | CORE | | + + + + + + | POTASSIUM, | 4.0 | 3.4 - 5.0 | [facility] | | | PLASMA | | mmol/L | LABORATORY | | | (LAB) | | | SERVICES, | | | | | | CORE | | + + + + + + | CHLORIDE, | 105 | 97 - 108 mmol/L | [facility] | | | PLASMA | | | LABORATORY | | | (LAB) | | | SERVICES, | | | | | | CORE | | + + + + + + | TOTAL CO2, | 32 | 21 - 32 mmol/L | [facility] | | | PLASMA | | | LABORATORY | | | (LAB) | | | SERVICES, | | | | | | CORE | | + + + + + + | CALCIUM, | 9.0 | 8.6 - 10.2 | [facility] | | | PLASMA | | mg/dL | LABORATORY | | | (LAB) | | | SERVICES, | | | | | | CORE | | + + + + + + | CALCIUM(ALB | 9.5 | 8.6 - 10.2 | [facility] | | | CORRECTED) | | mg/dL | LABORATORY | | | | | | SERVICES, | | | | | | CORE | | + + + + + + | ALBUMIN, | 3.4 (L) | 3.5 - 4.7 g/dL | [facility] | | | PLASMA | | | LABORATORY | | | (LAB) | | | SERVICES, | | | | | | CORE | | + + + + + + | PHOSPHORUS, | 4.4 | 2.4 - 4.7 mg/dL | [facility] | | | PLASMA | | | LABORATORY | | | (LAB) | | | SERVICES, | | | | | | CORE | | + + + + + + | POTASSIUM | No Hemo | | [facility] | | | CMNT | | | LABORATORY | | | | | | SERVICES, | | | | | | CORE | | + + + + + + | ANION GAP | 6 | 4 - 11 mmol/L | [facility] | | | | | | LABORATORY | | | | | | SERVICES, | | | | | | CORE | | + + + + + + | ANION | 7 | 4 - 11 mmol/L | [facility] | | | GAP(ALB | | | LABORATORY | | | CORRECTED) | | | SERVICES, | | | | | | CORE | | + + + + + + + + | Specimen | + + | Blood - Blood | | (substance) | + + + + + | Narrative | Performed At | + + + | GFR is estimated using the MDRD equation recommended by the | [facility] | | National Kidney Disease Education Program. Estimated GFR | LABORATORY | | Interpretive Information: <60 mL/min/1.73 sq m | SERVICES, CORE | | Chronic Kidney Disease <15 mL/min/1.73 sq m | | | Kidney Failure Estimated GFR greater that 60 mL/min/1.73 sq m is of | | | limited clinical value. The MDRD equation is not valid in the | | | following situations: - Patients under 18 years of age - Severe | | | malnutrition or obesity - Vegetarian diet - Rapidly changing kidney | | | function - Amputees, paraplegics, or other muscle-wasting diseses | | + + + + + + + + | Performing | Address | City/State/Zipcode | Phone Number | | Organization | | | | + + + + + | [facility] | [address] | [place] [address] | | | SERVICES, CORE | [address] | | | + + + + + MAGNESIUM, PLASMA (11/28/2017 7:07 AM PDT) + +-------+ + + + | Component | Value | Ref Range | Performed | Pathologist | | | | | At | Signature | + +-------+ + + + | MAGNESIUM,P | 2.0 | 1.6 - 2.6 mg/dL | [facility] | | | LASMA | | | LABORATORY | | | | | | SERVICES, | | | | | | CORE | | + +-------+ + + + + + | Specimen | + + | Blood - Blood | | (substance) | + + + + + | Narrative | Performed At | + + + | Reference range change effective 12/11/16. | [facility] | | | LABORATORY | | | SERVICES, CORE | + + + + + + + + | Performing | Address | City/State/Zipcode | Phone Number | | Organization | | | | + + + + + | [facility] | [address] | [place] [address] | | | SERVICES, CORE | [address] | | | + + + + + 12 LEAD ECG (11/27/2017 11:03 AM PDT) + + + + + + | Component | Value | Ref Range | Performed | Pathologist | | | | | At | Signature | + + + + + + | VENTRICULAR | 56 | bpm | [facility] | | | RATE | | | OF | | | | | | CARDIOLOGY | | + + + + + + | ATRIAL RATE | 56 | ms | [facility] | | | | | | OF | | | | | | CARDIOLOGY | | + + + + + + | P-R | 137 | ms | [facility] | | | INTERVAL | | | OF | | | | | | CARDIOLOGY | | + + + + + + | P AXIS | 59 | deg | [facility] | | | | | | OF | | | | | | CARDIOLOGY | | + + + + + + | QRS | 132 | ms | [facility] | | | DURATION | | | OF | | | | | | CARDIOLOGY | | + + + + + + | QT | 449 | ms | [facility] | | | | | | OF | | | | | | CARDIOLOGY | | + + + + + + | ANA LILIA-HALIMA | 432 | ms | [facility] | | | | | | OF | | | | | | CARDIOLOGY | | + + + + + + | R AXIS | 83 | deg | [facility] | | | | | | OF | | | | | | CARDIOLOGY | | + + + + + + | T AXIS | 21 | deg | [facility] | | | | | | OF | | | | | | CARDIOLOGY | | + + + + + + | ECG | Sinus bradycardia | | [facility] | | | IMPRESSION | | | OF | | | | | | CARDIOLOGY | | + + + + + + | ECG | Right bundle branch | | [facility] | | | IMPRESSION | block | | OF | | | | | | CARDIOLOGY | | + + + + + + | ECG | Borderline ST elevation, | | [facility] | | | IMPRESSION | lateral leads- ABNORMAL | | OF | | | | ECG - | | CARDIOLOGY | | + + + + + + | ECG | Electronically signed | | [facility] | | | IMPRESSION | by: PAULO CAVAZOS | | OF | | | | 11-28-2017 16:02:53 | | CARDIOLOGY | | + + + + + + + + | Specimen | + + | | + + + + + | Narrative | Performed At | + + + | | | + + + + + + + + | Performing | Address | City/State/Zipcode | Phone Number | | Organization | | | | + + + + + | [facility] | [address] | [place], [place] | | | CARDIOLOGY | [address] | [address] | | + + + + + VASC LAB VENOUS DUPLEX LOWER EXTREMITY BILAT COMP (11/26/2017 12:16 PM PDT) + + | Specimen | + + | | + + + + + | Narrative | Performed At | + + + | Bilateral: The duplex scanner was used to examine the deep and | [facility] | | superficial veins of the right and left lower extremities. The | RADIOLOGY VASC | | veins are patent bilaterally with normal flow and responses to | [facility] | | augmentation and compression maneuvers and no thrombus is noted. | | | Conclusions: A normal venous examination of the bilateral lower | | | extremities. No venous thrombosis was detected. I have | | | personally reviewed the images and, if necessary, edited the report. | | | I agree with the report as now presented. | | + + + + + | Procedure Note | + + | Service Account, [employer] In Interface - 11/26/2017 12:36 PM PDT Bilateral: The | | duplex scanner was used to examine the deep and superficial veins of the right and left | | lower extremities. The veins are patent bilaterally with normal flow and responses to | | augmentation and compression maneuvers and no thrombus is noted.Conclusions: A normal | | venous examination of the bilateral lower extremities. No venous thrombosis was | | detected.I have personally reviewed the images and, if necessary, edited the report. I | | agree with the report as now presented. | | | | | |I have personally reviewed the images and, if necessary, edited the report. I agree with t he report as now presented. | + + + +---------+ + + | Performing | Address | City/State/Zipcode | Phone Number | | Organization | | | | + +---------+ + + | [facility] | | | | | VASC US | | | | + +---------+ + + PREALBUMIN (11/25/2017 5:35 AM PDT) + +-------+ + + + | Component | Value | Ref Range | Performed | Pathologist | | | | | At | Signature | + +-------+ + + + | PREALBUMIN | 24.8 | 17.0 - 42.0 | [facility] | | | | mg/dL | [facility] | | | | | | [place] | | + +-------+ + + + + + | Specimen | + + | Blood - Blood | | (substance) | + + + + + + + | Performing | Address | City/State/Zipcode | Phone Number | | Organization | | | | + + + + + | [facility] | [address] | [place] [address] | | | [place] | | | | + + + + + CALCIUM, IONIZED, WHOLE BLOOD (11/25/2017 5:35 AM PDT) + +-------+ + + + | Component | Value | Ref Range | Performed | Pathologist | | | | | At | Signature | + +-------+ + + + | MAHOGANY ICA, | 1.15 | 1.14 - 1.32 | [facility] | | | WHOLE BLD | | mmol/L | LABORATORY | | | | | | SERVICES, | | | | | | CORE | | + +-------+ + + + | PH, WHOLE | 7.41 | | [facility] | | | BLOOD | | | LABORATORY | | | | | | SERVICES, | | | | | | CORE | | + +-------+ + + + | ICA, | 1.16 | 1.14 - 1.28 | [facility] | | | CORRECTED | | mmol/L | LABORATORY | | | TO PH 7.4 | | | SERVICES, | | | | | | CORE | | + +-------+ + + + + + | Specimen | + + | Blood - Blood | | (substance) | + + + + + + + | Performing | Address | City/State/Zipcode | Phone Number | | Organization | | | | + + + + + | [facility] | [address] | [place] [address] | | | SERVICES, CORE | [address] | | | + + + + + C-REACTIVE PROTEIN (11/25/2017 5:30 AM PDT) + +-------+ + + + | Component | Value | Ref Range | Performed | Pathologist | | | | | At | Signature | + +-------+ + + + | C-REACTIVE | <2.9 | <10.0 mg/L | [facility] | | | PROTEIN | | | LABORATORY | | | | | | SERVICES, | | | | | | CORE | | + +-------+ + + + + + | Specimen | + + | Blood - Blood | | (substance) | + + + + + | Narrative | Performed At | + + + | New method, new reference range and new reporting units as of | [facility] | | 09/30/2013. | LABORATORY | | | SERVICES, CORE | + + + + + + + + | Performing | Address | City/State/Zipcode | Phone Number | | Organization | | | | + + + + + | [facility] | [address] | [place] [address] | | | SERVICES, [place] | [address] | | | + + + + + TRIGLYCERIDES, PLASMA (11/25/2017 5:30 AM PDT) + +-------+ + + + | Component | Value | Ref Range | Performed | Pathologist | | | | | At | Signature | + +-------+ + + + | TRIGLYCERID | 119 | <150 mg/dL | [facility] | | | ES | | | LABORATORY | | | | | | SERVICES, | | | | | | CORE | | + +-------+ + + + + + | Specimen | + + | Blood - Blood | | (substance) | + + + + + | Narrative | Performed At | + + + | Triglyceride Reference Range: Normal: <150 | [facility] | | mg/dL Borderline High: 150-199 mg/dL High: | LABORATORY | | 200-499 mg/dL Very High: >=500 mg/dL | SERVICES, CORE | + + + + + + + + | Performing | Address | City/State/Zipcode | Phone Number | | Organization | | | | + + + + + | [facility] | [address] | [place] [address] | | | SERVICES, CORE | [address] | | | + + + + + LIVER SET (AST,ALT,BILI TOTAL,BILI DIRECT,ALK PHOS,ALB,PROT TOTAL) (11/25/2017 5:30 AM PDT ) + +---------+ + + + | Component | Value | Ref Range | Performed | Pathologist | | | | | At | Signature | + +---------+ + + + | ALBUMIN, | 3.3 (L) | 3.5 - 4.7 g/dL | [facility] | | | PLASMA | | | LABORATORY | | | (LAB) | | | SERVICES, | | | | | | CORE | | + +---------+ + + + | BILIRUBIN | 0.2 (L) | 0.3 - 1.2 mg/dL | [facility] | | | TOTAL | | | LABORATORY | | | | | | SERVICES, | | | | | | CORE | | + +---------+ + + + | BILIRUBIN | <0.1 | 0.0 - 0.3 mg/dL | [facility] | | | DIRECT | | | LABORATORY | | | | | | SERVICES, | | | | | | CORE | | + +---------+ + + + | ALK PHOS | 201 (H) | 53 - 128 U/L | [facility] | | | | | | LABORATORY | | | | | | SERVICES, | | | | | | CORE | | + +---------+ + + + | AST(SGOT) | 33 | <=41 U/L | [facility] | | | | | | LABORATORY | | | | | | SERVICES, | | | | | | CORE | | + +---------+ + + + | ALT (SGPT) | 40 | <=60 U/L | [facility] | | | | | | LABORATORY | | | | | | SERVICES, | | | | | | CORE | | + +---------+ + + + | TOTAL | 7.1 | 6.4 - 8.2 g/dL | [facility] | | | PROTEIN, | | | LABORATORY | | | PLASMA | | | SERVICES, | | | (LAB) | | | CORE | | + +---------+ + + + | AST CMNT | No Hemo | | [facility] | | | | | | LABORATORY | | | | | | SERVICES, | | | | | | CORE | | + +---------+ + + + | BILI T CMNT | No Hemo | | [facility] | | | | | | LABORATORY | | | | | | SERVICES, | | | | | | CORE | | + +---------+ + + + | BILI D CMNT | No Hemo | | [facility] | | | | | | LABORATORY | | | | | | SERVICES, | | | | | | CORE | | + +---------+ + + + + + | Specimen | + + | Blood - Blood | | (substance) | + + + + + + + | Performing | Address | City/State/Zipcode | Phone Number | | Organization | | | | + + + + + | [facility] | [address] | [place] [address] | | | SERVICES, [place]AL[place] | [address] | | | + + + + + RENAL FUNCTION SET (NA,K,CL,CO2,BUN,CREAT,GLUC,CA,PHOS,ALB ) (11/25/2017 5:30 AM PDT) + + + + + + | Component | Value | Ref Range | Performed | Pathologist | | | | | At | Signature | + + + + + + | GLUCOSE, | 90 | 70 - 99 mg/dL | [facility] | | | PLASMA | | | LABORATORY | | | (LAB) | | | SERVICES, | | | | | | CORE | | + + + + + + | BUN, PLASMA | 12 | 6 - 20 mg/dL | [facility] | | | (LAB) | | | LABORATORY | | | | | | SERVICES, | | | | | | CORE | | + + + + + + | CREATININE | 0.55 (L) | 0.70 - 1.30 | [facility] | | | PLASMA | | mg/dL | LABORATORY | | | (LAB) | | | SERVICES, | | | | | | CORE | | + + + + + + | EGFR | >60 | >60 mL/min | [facility] | | | - | | | LABORATORY | | | SUDANESE | | | SERVICES, | | | | | | CORE | | + + + + + + | EGFR NON | >60 | >60 mL/min | [facility] | | | -KAYE | | | LABORATORY | | | RICAN | | | SERVICES, | | | | | | CORE | | + + + + + + | SODIUM, | 142 | 136 - 145 | [facility] | | | PLASMA | | mmol/L | LABORATORY | | | (LAB) | | | SERVICES, | | | | | | CORE | | + + + + + + | POTASSIUM, | 4.0 | 3.4 - 5.0 | [facility] | | | PLASMA | | mmol/L | LABORATORY | | | (LAB) | | | SERVICES, | | | | | | CORE | | + + + + + + | CHLORIDE, | 105 | 97 - 108 mmol/L | [facility] | | | PLASMA | | | LABORATORY | | | (LAB) | | | SERVICES, | | | | | | CORE | | + + + + + + | TOTAL CO2, | 29 | 21 - 32 mmol/L | [facility] | | | PLASMA | | | LABORATORY | | | (LAB) | | | SERVICES, | | | | | | CORE | | + + + + + + | CALCIUM, | 8.9 | 8.6 - 10.2 | [facility] | | | PLASMA | | mg/dL | LABORATORY | | | (LAB) | | | SERVICES, | | | | | | CORE | | + + + + + + | CALCIUM(ALB | 9.5 | 8.6 - 10.2 | [facility] | | | CORRECTED) | | mg/dL | LABORATORY | | | | | | SERVICES, | | | | | | CORE | | + + + + + + | ALBUMIN, | 3.3 (L) | 3.5 - 4.7 g/dL | [facility] | | | PLASMA | | | LABORATORY | | | (LAB) | | | SERVICES, | | | | | | CORE | | + + + + + + | PHOSPHORUS, | 4.8 (H) | 2.4 - 4.7 mg/dL | [facility] | | | PLASMA | | | LABORATORY | | | (LAB) | | | SERVICES, | | | | | | CORE | | + + + + + + | POTASSIUM | No Hemo | | [facility] | | | CMNT | | | LABORATORY | | | | | | SERVICES, | | | | | | CORE | | + + + + + + | ANION GAP | 8 | 4 - 11 mmol/L | [facility] | | | | | | LABORATORY | | | | | | SERVICES, | | | | | | CORE | | + + + + + + | ANION | 9 | 4 - 11 mmol/L | [facility] | | | GAP(ALB | | | LABORATORY | | | CORRECTED) | | | SERVICES, | | | | | | CORE | | + + + + + + + + | Specimen | + + | Blood - Blood | | (substance) | + + + + + | Narrative | Performed At | + + + | GFR is estimated using the MDRD equation recommended by the | [facility] | | National Kidney Disease Education Program. Estimated GFR | LABORATORY | | Interpretive Information: <60 mL/min/1.73 sq m | SERVICES, CORE | | Chronic Kidney Disease <15 mL/min/1.73 sq m | | | Kidney Failure Estimated GFR greater that 60 mL/min/1.73 sq m is of | | | limited clinical value. The MDRD equation is not valid in the | | | following situations: - Patients under 18 years of age - Severe | | | malnutrition or obesity - Vegetarian diet - Rapidly changing kidney | | | function - Amputees, paraplegics, or other muscle-wasting diseses | | + + + + + + + + | Performing | Address | City/State/Zipcode | Phone Number | | Organization | | | | + + + + + | [facility] | [address] | [place] [address] | | | SERVICES, CORE | [address] | | | + + + + + MAGNESIUM, PLASMA (11/25/2017 5:30 AM PDT) + +-------+ + + + | Component | Value | Ref Range | Performed | Pathologist | | | | | At | Signature | + +-------+ + + + | MAGNESIUM,P | 2.1 | 1.6 - 2.6 mg/dL | [facility] | | | LASMA | | | LABORATORY | | | | | | SERVICES, | | | | | | CORE | | + +-------+ + + + + + | Specimen | + + | Blood - Blood | | (substance) | + + + + + | Narrative | Performed At | + + + | Reference range change effective 12/11/16. | [facility] | | | LABORATORY | | | SERVICES, CORE | + + + + + + + + | Performing | Address | City/State/Zipcode | Phone Number | | Organization | | | | + + + + + | [facility] | [address] | [place] [address] | | | SERVICES, CORE | [address] | | | + + + + + 12 LEAD ECG (11/24/2017 8:51 AM PDT) + + + + + + | Component | Value | Ref Range | Performed | Pathologist | | | | | At | Signature | + + + + + + | VENTRICULAR | 57 | bpm | [facility] | | | RATE | | | OF | | | | | | CARDIOLOGY | | + + + + + + | ATRIAL RATE | 57 | ms | [facility] | | | | | | OF | | | | | | CARDIOLOGY | | + + + + + + | P-R | 144 | ms | [facility] | | | INTERVAL | | | OF | | | | | | CARDIOLOGY | | + + + + + + | P AXIS | 47 | deg | [facility] | | | | | | OF | | | | | | CARDIOLOGY | | + + + + + + | QRS | 126 | ms | [facility] | | | DURATION | | | OF | | | | | | CARDIOLOGY | | + + + + + + | QT | 435 | ms | [facility] | | | | | | OF | | | | | | CARDIOLOGY | | + + + + + + | QTC-HALIMA | 423 | ms | [facility] | | | | | | OF | | | | | | CARDIOLOGY | | + + + + + + | R AXIS | 82 | deg | [facility] | | | | | | OF | | | | | | CARDIOLOGY | | + + + + + + | T AXIS | 28 | deg | [facility] | | | | | | OF | | | | | | CARDIOLOGY | | + + + + + + | ECG | Sinus bradycardia | | [facility] | | | IMPRESSION | | | OF | | | | | | CARDIOLOGY | | + + + + + + | ECG | Right bundle branch | | [facility] | | | IMPRESSION | block- ABNORMAL ECG - | | OF | | | | | | CARDIOLOGY | | + + + + + + | ECG | Electronically signed | | [facility] | | | IMPRESSION | by: PAULO CAVAZOS | | OF | | | | 11-24-2017 17:16:18 | | CARDIOLOGY | | + + + + + + + + | Specimen | + + | | + + + + + | Narrative | Performed At | + + + | | | + + + + + + + + | Performing | Address | City/State/Zipcode | Phone Number | | Organization | | | | + + + + + | [facility] | [address] | [place], [place] | | | CARDIOLOGY | [address] | [address] | | + + + + + 12 LEAD ECG (11/23/2017 1:07 PM PDT) + + + + + + | Component | Value | Ref Range | Performed | Pathologist | | | | | At | Signature | + + + + + + | VENTRICULAR | 64 | bpm | [facility] | | | RATE | | | OF | | | | | | CARDIOLOGY | | + + + + + + | ATRIAL RATE | 64 | ms | [facility] | | | | | | OF | | | | | | CARDIOLOGY | | + + + + + + | P-R | 144 | ms | [facility] | | | INTERVAL | | | OF | | | | | | CARDIOLOGY | | + + + + + + | P AXIS | 78 | deg | [facility] | | | | | | OF | | | | | | CARDIOLOGY | | + + + + + + | QRS | 126 | ms | [facility] | | | DURATION | | | OF | | | | | | CARDIOLOGY | | + + + + + + | QT | 415 | ms | [facility] | | | | | | OF | | | | | | CARDIOLOGY | | + + + + + + | QTC-BABRAYDONTT | 429 | ms | [facility] | | | | | | OF | | | | | | CARDIOLOGY | | + + + + + + | R AXIS | 91 | deg | [facility] | | | | | | OF | | | | | | CARDIOLOGY | | + + + + + + | T AXIS | 35 | deg | [facility] | | | | | | OF | | | | | | CARDIOLOGY | | + + + + + + | ECG | Sinus rhythm | | [facility] | | | IMPRESSION | | | OF | | | | | | CARDIOLOGY | | + + + + + + | ECG | Right bundle branch | | [facility] | | | IMPRESSION | block | | OF | | | | | | CARDIOLOGY | | + + + + + + | ECG | ST elevation suggests | | [facility] | | | IMPRESSION | acute pericarditis- | | OF | | | | ABNORMAL ECG - | | CARDIOLOGY | | + + + + + + | ECG | Electronically signed | | [facility] | | | IMPRESSION | by: PAULO CAVAZOS | | OF | | | | 11-24-2017 17:16:36 | | CARDIOLOGY | | + + + + + + + + | Specimen | + + | | + + + + + | Narrative | Performed At | + + + | | | + + + + + + + + | Performing | Address | City/State/Zipcode | Phone Number | | Organization | | | | + + + + + | [facility] | [address] | [place], [place] | | | CARDIOLOGY | [address] | [address] | | + + + + + 12 LEAD ECG (11/22/2017 8:51 AM PDT) + + + + + + | Component | Value | Ref Range | Performed | Pathologist | | | | | At | Signature | + + + + + + | VENTRICULAR | 66 | bpm | [facility] | | | RATE | | | OF | | | | | | CARDIOLOGY | | + + + + + + | ATRIAL RATE | 66 | ms | [facility] | | | | | | OF | | | | | | CARDIOLOGY | | + + + + + + | P-R | 148 | ms | [facility] | | | INTERVAL | | | OF | | | | | | CARDIOLOGY | | + + + + + + | P AXIS | 13 | deg | [facility] | | | | | | OF | | | | | | CARDIOLOGY | | + + + + + + | QRS | 122 | ms | [facility] | | | DURATION | | | OF | | | | | | CARDIOLOGY | | + + + + + + | QT | 410 | ms | [facility] | | | | | | OF | | | | | | CARDIOLOGY | | + + + + + + | QTC-BAZETT | 430 | ms | [facility] | | | | | | OF | | | | | | CARDIOLOGY | | + + + + + + | R AXIS | 74 | deg | [facility] | | | | | | OF | | | | | | CARDIOLOGY | | + + + + + + | T AXIS | 34 | deg | [facility] | | | | | | OF | | | | | | CARDIOLOGY | | + + + + + + | ECG | Sinus rhythm | | [facility] | | | IMPRESSION | | | OF | | | | | | CARDIOLOGY | | + + + + + + | ECG | Right bundle branch | | [facility] | | | IMPRESSION | block- ABNORMAL ECG - | | OF | | | | | | CARDIOLOGY | | + + + + + + | ECG | Electronically signed | | [facility] | | | IMPRESSION | by: PAULO CAVAZOS | | OF | | | | 11-23-2017 10:18:13 | | CARDIOLOGY | | + + + + + + + + | Specimen | + + | | + + + + + | Narrative | Performed At | + + + | | | + + + + + + + + | Performing | Address | City/State/Zipcode | Phone Number | | Organization | | | | + + + + + | [facility] | [address] | [place], [place] | | | CARDIOLOGY | [address] | [address] | | + + + + + 12 LEAD ECG (11/21/2017 6:56 PM PDT) + + + + + + | Component | Value | Ref Range | Performed | Pathologist | | | | | At | Signature | + + + + + + | VENTRICULAR | 61 | bpm | [facility] | | | RATE | | | OF | | | | | | CARDIOLOGY | | + + + + + + | ATRIAL RATE | 61 | ms | [facility] | | | | | | OF | | | | | | CARDIOLOGY | | + + + + + + | P-R | 139 | ms | [facility] | | | INTERVAL | | | OF | | | | | | CARDIOLOGY | | + + + + + + | P AXIS | 55 | deg | [facility] | | | | | | OF | | | | | | CARDIOLOGY | | + + + + + + | QRS | 128 | ms | [facility] | | | DURATION | | | OF | | | | | | CARDIOLOGY | | + + + + + + | QT | 443 | ms | [facility] | | | | | | OF | | | | | | CARDIOLOGY | | + + + + + + | QTC-BAZETT | 446 | ms | [facility] | | | | | | OF | | | | | | CARDIOLOGY | | + + + + + + | R AXIS | 77 | deg | [facility] | | | | | | OF | | | | | | CARDIOLOGY | | + + + + + + | T AXIS | 16 | deg | [facility] | | | | | | OF | | | | | | CARDIOLOGY | | + + + + + + | ECG | Sinus rhythm | | [facility] | | | IMPRESSION | | | OF | | | | | | CARDIOLOGY | | + + + + + + | ECG | Right bundle branch | | [facility] | | | IMPRESSION | block- ABNORMAL ECG - | | OF | | | | | | CARDIOLOGY | | + + + + + + | ECG | Electronically signed | | [facility] | | | IMPRESSION | by: PAULO CAVAZOS | | OF | | | | 11-23-2017 10:18:49 | | CARDIOLOGY | | + + + + + + + + | Specimen | + + | | + + + + + | Narrative | Performed At | + + + | | | + + + + + + + + | Performing | Address | City/State/Zipcode | Phone Number | | Organization | | | | + + + + + | [facility] | [address] | [place], [place] | | | CARDIOLOGY | [address] | [address] | | + + + + + X-RAY SPINE CERVICAL 3 VIEWS (11/21/2017 2:23 PM PDT) + + | Specimen | + + | | + + + + + | Narrative | Performed At | + + + | EXAM: SPINE CERVICAL 3 VIEWS HISTORY: follow up imaging Cervical | [facility] | | Spine fractures C 6, C 7 COMPARISON: 09/14/2017 FINDINGS: | RADIOLOGY VOICE | | The cervical spine is visualized through the C5-6 disc space on | RECOGNITION 2 | | lateral views. The C6 spinous process and C7 laminar fractures are not | | | well outlined body. No new fracture or focal destruction is detected. | | | Grade 1 C4 on C5 anterolisthesis is unchanged. Lower cervical | | | degenerative disc disease and mild multilevel facet arthropathy are | | | again noted. The craniocervical and C1-2 relationships are intact. | | | There is no focal soft tissue abnormality. IMPRESSION: | | | Nonvisualized C6 and C7 fractures. No new osseous abnormality | | | detected. Unchanged lower cervical degenerative disc disease, | | | multilevel facet arthropathy and grade 1 C4 on C5 anterolisthesis. | | | I have personally reviewed the images and, if necessary, edited the | | | report. I agree with the report as now presented. Final | | | signature: Susi Alex MD 11/21/2017 2:29 PM Preliminary: | | | Susi Alex MD Dictation initiated: Susi Alex MD | | | 11/21/2017 2:27 PM | | + + + + + | Procedure Note | + + | Service Account, Radiant Res In Interface - 11/21/2017 2:30 PM PDT EXAM: SPINE | | CERVICAL 3 VIEWS HISTORY: follow up imaging Cervical Spine fractures C 6, C 7 | | COMPARISON: 09/14/2017 FINDINGS: The cervical spine is visualized through the C5-6 disc | | space on lateral views. The C6 spinous process and C7 laminar fractures are not well | | outlined body. No new fracture or focal destruction is detected. Grade 1 C4 on C5 | | anterolisthesis is unchanged. Lower cervical degenerative disc disease and mild | | multilevel facet arthropathy are again noted. The craniocervical and C1-2 relationships | | are intact. There is no focal soft tissue abnormality. IMPRESSION: Nonvisualized C6 and | | C7 fractures. No new osseous abnormality detected. Unchanged lower cervical degenerative | | disc disease, multilevel facet arthropathy and grade 1 C4 on C5 anterolisthesis. I have | | personally reviewed the images and, if necessary, edited the report. I agree with the | | report as now presented. Final signature: Susi Alex MD 11/21/2017 2:29 PM | | Preliminary: Susi Alex MD Dictation initiated: Susi Alex MD | | 11/21/2017 2:27 PM | | | |Unchanged lower cervical degenerative disc disease, multilevel facet arthropathy and grade 1 C4 on C5 anterolisthesis. | | | |I have personally reviewed the images and, if necessary, edited the report. I agree with th e report as now presented. | | | |Final signature: Susi Alex MD 11/21/2017 2:29 PM | |Preliminary: Susi Alex MD | |Dictation initiated: Susi Alex MD 11/21/2017 2:27 PM | + + + +---------+ + + | Performing | Address | City/State/Zipcode | Phone Number | | Organization | | | | + +---------+ + + | [facility] | | | | | VOICE RECOGNITION 2 | | | | + +---------+ + + RENAL FUNCTION SET (NA,K,CL,CO2,BUN,CREAT,GLUC,CA,PHOS,ALB ) (11/21/2017 4:17 AM PDT) + + + + + + | Component | Value | Ref Range | Performed | Pathologist | | | | | At | Signature | + + + + + + | GLUCOSE, | 87 | 70 - 99 mg/dL | [facility] | | | PLASMA | | | LABORATORY | | | (LAB) | | | SERVICES, | | | | | | CORE | | + + + + + + | BUN, PLASMA | 15 | 6 - 20 mg/dL | [facility] | | | (LAB) | | | LABORATORY | | | | | | SERVICES, | | | | | | CORE | | + + + + + + | CREATININE | 0.50 (L) | 0.70 - 1.30 | [facility] | | | PLASMA | | mg/dL | LABORATORY | | | (LAB) | | | SERVICES, | | | | | | CORE | | + + + + + + | EGFR | >60 | >60 mL/min | [facility] | | | - | | | LABORATORY | | | SUDANESE | | | SERVICES, | | | | | | CORE | | + + + + + + | EGFR NON | >60 | >60 mL/min | [facility] | | | -KAYE | | | LABORATORY | | | RICAN | | | SERVICES, | | | | | | CORE | | + + + + + + | SODIUM, | 139 | 136 - 145 | [facility] | | | PLASMA | | mmol/L | LABORATORY | | | (LAB) | | | SERVICES, | | | | | | CORE | | + + + + + + | POTASSIUM, | 4.1 | 3.4 - 5.0 | [facility] | | | PLASMA | | mmol/L | LABORATORY | | | (LAB) | | | SERVICES, | | | | | | CORE | | + + + + + + | CHLORIDE, | 106 | 97 - 108 mmol/L | [facility] | | | PLASMA | | | LABORATORY | | | (LAB) | | | SERVICES, | | | | | | CORE | | + + + + + + | TOTAL CO2, | 25 | 21 - 32 mmol/L | [facility] | | | PLASMA | | | LABORATORY | | | (LAB) | | | SERVICES, | | | | | | CORE | | + + + + + + | CALCIUM, | 8.6 | 8.6 - 10.2 | [facility] | | | PLASMA | | mg/dL | LABORATORY | | | (LAB) | | | SERVICES, | | | | | | CORE | | + + + + + + | CALCIUM(ALB | 9.2 | 8.6 - 10.2 | [facility] | | | CORRECTED) | | mg/dL | LABORATORY | | | | | | SERVICES, | | | | | | CORE | | + + + + + + | ALBUMIN, | 3.2 (L) | 3.5 - 4.7 g/dL | [facility] | | | PLASMA | | | LABORATORY | | | (LAB) | | | SERVICES, | | | | | | CORE | | + + + + + + | PHOSPHORUS, | 4.8 (H) | 2.4 - 4.7 mg/dL | [facility] | | | PLASMA | | | LABORATORY | | | (LAB) | | | SERVICES, | | | | | | CORE | | + + + + + + | POTASSIUM | No Hemo | | [facility] | | | CMNT | | | LABORATORY | | | | | | SERVICES, | | | | | | CORE | | + + + + + + | ANION GAP | 8 | 4 - 11 mmol/L | [facility] | | | | | | LABORATORY | | | | | | SERVICES, | | | | | | CORE | | + + + + + + | ANION | 10 | 4 - 11 mmol/L | [facility] | | | GAP(ALB | | | LABORATORY | | | CORRECTED) | | | SERVICES, | | | | | | CORE | | + + + + + + + + | Specimen | + + | Blood - Blood | | (substance) | + + + + + | Narrative | Performed At | + + + | GFR is estimated using the MDRD equation recommended by the | [facility] | | National Kidney Disease Education Program. Estimated GFR | LABORATORY | | Interpretive Information: <60 mL/min/1.73 sq m | SERVICES, CORE | | Chronic Kidney Disease <15 mL/min/1.73 sq m | | | Kidney Failure Estimated GFR greater that 60 mL/min/1.73 sq m is of | | | limited clinical value. The MDRD equation is not valid in the | | | following situations: - Patients under 18 years of age - Severe | | | malnutrition or obesity - Vegetarian diet - Rapidly changing kidney | | | function - Amputees, paraplegics, or other muscle-wasting diseses | | + + + + + + + + | Performing | Address | City/State/Zipcode | Phone Number | | Organization | | | | + + + + + | [facility] | [phone] | [place] [address] | | | SERVICES, CORE | [address] | | | + + + + + MAGNESIUM, PLASMA (11/21/2017 4:17 AM PDT) + +-------+ + + + | Component | Value | Ref Range | Performed | Pathologist | | | | | At | Signature | + +-------+ + + + | MAGNESIUM,P | 2.1 | 1.6 - 2.6 mg/dL | [facility] | | | LASMA | | | LABORATORY | | | | | | SERVICES, | | | | | | CORE | | + +-------+ + + + + + | Specimen | + + | Blood - Blood | | (substance) | + + + + + | Narrative | Performed At | + + + | Reference range change effective 12/11/16. | [facility] | | | LABORATORY | | | SERVICES, CORE | + + + + + + + + | Performing | Address | City/State/Zipcode | Phone Number | | Organization | | | | + + + + + | [facility] | [address] | [place] [address] | | | SERVICES, [facility] | [address] | | | + + + + + VASC LAB VENOUS DUPLEX LOWER EXTREMITY BILAT COMP (11/19/2017 11:05 AM PDT) + + | Specimen | + + | | + + + + + | Narrative | Performed At | + + + | Bilateral: The duplex scanner was used to examine the deep and | [facility] | | superficial veins of the right and left lower extremities. The | RADIOLOGY VASC | | veins are patent bilaterally with normal flow and responses to | US | | augmentation and compression maneuvers and no thrombus is noted. | | | Conclusions: A normal venous examination of the bilateral lower | | | extremities. No venous thrombosis was detected. I have | | | personally reviewed the images and, if necessary, edited the report. | | | I agree with the report as now presented. | | + + + + + | Procedure Note | + + | Service Account, Hickies Res In Interface - 11/19/2017 11:26 AM PDT Bilateral: The | | duplex scanner was used to examine the deep and superficial veins of the right and left | | lower extremities. The veins are patent bilaterally with normal flow and responses to | | augmentation and compression maneuvers and no thrombus is noted.Conclusions: A normal | | venous examination of the bilateral lower extremities. No venous thrombosis was | | detected.I have personally reviewed the images and, if necessary, edited the report. I | | agree with the report as now presented. | | | | | |I have personally reviewed the images and, if necessary, edited the report. I agree with t he report as now presented. | + + + +---------+ + + | Performing | Address | City/State/Zipcode | Phone Number | | Organization | | | | + +---------+ + + | [facility] | | | | | VASC US | | | | + +---------+ + + 12 LEAD ECG (11/19/2017 10:15 AM PDT) + + + + + + | Component | Value | Ref Range | Performed | Pathologist | | | | | At | Signature | + + + + + + | VENTRICULAR | 63 | bpm | [facility] | | | RATE | | | OF | | | | | | CARDIOLOGY | | + + + + + + | ATRIAL RATE | 63 | ms | [facility] | | | | | | OF | | | | | | CARDIOLOGY | | + + + + + + | P-R | 139 | ms | [facility] | | | INTERVAL | | | OF | | | | | | CARDIOLOGY | | + + + + + + | P AXIS | 72 | deg | [facility] | | | | | | OF | | | | | | CARDIOLOGY | | + + + + + + | QRS | 129 | ms | [facility] | | | DURATION | | | OF | | | | | | CARDIOLOGY | | + + + + + + | QT | 429 | ms | [facility] | | | | | | OF | | | | | | CARDIOLOGY | | + + + + + + | QTC-BAZETT | 440 | ms | [facility] | | | | | | OF | | | | | | CARDIOLOGY | | + + + + + + | R AXIS | 67 | deg | [facility] | | | | | | OF | | | | | | CARDIOLOGY | | + + + + + + | T AXIS | 18 | deg | [facility] | | | | | | OF | | | | | | CARDIOLOGY | | + + + + + + | ECG | Sinus rhythm | | [facility] | | | IMPRESSION | | | OF | | | | | | CARDIOLOGY | | + + + + + + | ECG | Right bundle branch | | [facility] | | | IMPRESSION | block | | OF | | | | | | CARDIOLOGY | | + + + + + + | ECG | Low voltage, precordial | | [facility] | | | IMPRESSION | leads- ABNORMAL ECG - | | OF | | | | | | CARDIOLOGY | | + + + + + + | ECG | Electronically signed | | [facility] | | | IMPRESSION | by: AJAY DE LOS SANTOS | | OF | | | | 11-19-2017 13:02:33 | | CARDIOLOGY | | + + + + + + + + | Specimen | + + | | + + + + + | Narrative | Performed At | + + + | | | + + + + + + + + | Performing | Address | City/State/Zipcode | Phone Number | | Organization | | | | + + + + + | [facility] | [address] | [place] | | | CARDIOLOGY | [address] | [address] | | + + + + + 12 LEAD ECG (11/18/2017 9:47 AM PDT) + + + + + + | Component | Value | Ref Range | Performed | Pathologist | | | | | At | Signature | + + + + + + | VENTRICULAR | 56 | bpm | [facility] | | | RATE | | | OF | | | | | | CARDIOLOGY | | + + + + + + | ATRIAL RATE | 56 | ms | [facility] | | | | | | OF | | | | | | CARDIOLOGY | | + + + + + + | P-R | 140 | ms | [facility] | | | INTERVAL | | | OF | | | | | | CARDIOLOGY | | + + + + + + | P AXIS | 46 | deg | [facility] | | | | | | OF | | | | | | CARDIOLOGY | | + + + + + + | QRS | 130 | ms | [facility] | | | DURATION | | | OF | | | | | | CARDIOLOGY | | + + + + + + | QT | 444 | ms | [facility] | | | | | | OF | | | | | | CARDIOLOGY | | + + + + + + | QTC-BAZETT | 429 | ms | [facility] | | | | | | OF | | | | | | CARDIOLOGY | | + + + + + + | R AXIS | 82 | deg | [facility] | | | | | | OF | | | | | | CARDIOLOGY | | + + + + + + | T AXIS | 15 | deg | [facility] | | | | | | OF | | | | | | CARDIOLOGY | | + + + + + + | ECG | Sinus bradycardia | | [facility] | | | IMPRESSION | | | OF | | | | | | CARDIOLOGY | | + + + + + + | ECG | Right bundle branch | | [facility] | | | IMPRESSION | block | | OF | | | | | | CARDIOLOGY | | + + + + + + | ECG | Borderline ST elevation, | | [facility] | | | IMPRESSION | anterolateral leads- | | OF | | | | ABNORMAL ECG - | | CARDIOLOGY | | + + + + + + | ECG | Electronically signed | | [facility] | | | IMPRESSION | by: PAULO CAVAZOS | | OF | | | | 11-19-2017 09:02:43 | | CARDIOLOGY | | + + + + + + + + | Specimen | + + | | + + + + + | Narrative | Performed At | + + + | | | + + + + + + + + | Performing | Address | City/State/Zipcode | Phone Number | | Organization | | | | + + + + + | [facility] | [address] | [place], [place] | | | CARDIOLOGY | [address] | [address] | | + + + + + CALCIUM, IONIZED, WHOLE BLOOD (11/18/2017 9:41 AM PDT) + +-------+ + + + | Component | Value | Ref Range | Performed | Pathologist | | | | | At | Signature | + +-------+ + + + | MAHOGANY ICA, | 1.17 | 1.14 - 1.32 | [facility] | | | WHOLE BLD | | mmol/L | LABORATORY | | | | | | SERVICES, | | | | | | CORE | | + +-------+ + + + | PH, WHOLE | 7.37 | | [facility] | | | BLOOD | | | LABORATORY | | | | | | SERVICES, | | | | | | CORE | | + +-------+ + + + | ICA, | 1.15 | 1.14 - 1.28 | [facility] | | | CORRECTED | | mmol/L | LABORATORY | | | TO PH 7.4 | | | SERVICES, | | | | | | CORE | | + +-------+ + + + + + | Specimen | + + | Blood - Blood | | (substance) | + + + + + + + | Performing | Address | City/State/Zipcode | Phone Number | | Organization | | | | + + + + + | [facility] | [address] | [place] [address] | | | SERVICES, CORE | [address] | | | + + + + + C-REACTIVE PROTEIN (11/18/2017 7:45 AM PDT) + +-------+ + + + | Component | Value | Ref Range | Performed | Pathologist | | | | | At | Signature | + +-------+ + + + | C-REACTIVE | <2.9 | <10.0 mg/L | [facility] | | | PROTEIN | | | LABORATORY | | | | | | SERVICES, | | | | | | CORE | | + +-------+ + + + + + | Specimen | + + | Blood - Blood | | (substance) | + + + + + | Narrative | Performed At | + + + | New method, new reference range and new reporting units as of | [facility] | | 09/30/2013. | LABORATORY | | | SERVICES, CORE | + + + + + + + + | Performing | Address | City/State/Zipcode | Phone Number | | Organization | | | | + + + + + | [facility] | [address] | [place] [address] | | | SERVICES, CORE | [address] | | | + + + + + PREALBUMIN (11/18/2017 7:45 AM PDT) + +-------+ + + + | Component | Value | Ref Range | Performed | Pathologist | | | | | At | Signature | + +-------+ + + + | PREALBUMIN | 28.6 | 17.0 - 42.0 | [facility] | | | | mg/dL | [facility] | | | | | [place] | | + +-------+ + + + + + | Specimen | + + | Blood - Blood | | (substance) | + + + + + + + | Performing | Address | City/State/Zipcode | Phone Number | | Organization | | | | + + + + + | [facility] | [address] | [place] [address] | | | [place] | | | | + + + + + TRIGLYCERIDES, PLASMA (11/18/2017 7:45 AM PDT) + +---------+ + + + | Component | Value | Ref Range | Performed | Pathologist | | | | | At | Signature | + +---------+ + + + | TRIGLYCERID | 162 (H) | <150 mg/dL | [facility] | | | ES | | | LABORATORY | | | | | | SERVICES, | | | | | | CORE | | + +---------+ + + + + + | Specimen | + + | Blood - Blood | | (substance) | + + + + + | Narrative | Performed At | + + + | Triglyceride Reference Range: Normal: <150 | [facility] | | mg/dL Borderline High: 150-199 mg/dL High: | LABORATORY | | 200-499 mg/dL Very High: >=500 mg/dL | SERVICES, CORE | + + + + + + + + | Performing | Address | City/State/Zipcode | Phone Number | | Organization | | | | + + + + + | [facility] | [address] | [place] [address] | | | SERVICES, CORE | [address] | | | + + + + + LIVER SET (AST,ALT,BILI TOTAL,BILI DIRECT,ALK PHOS,ALB,PROT TOTAL) (11/18/2017 7:45 AM PDT ) + +---------+ + + + | Component | Value | Ref Range | Performed | Pathologist | | | | | At | Signature | + +---------+ + + + | ALBUMIN, | 3.4 (L) | 3.5 - 4.7 g/dL | [facility] | | | PLASMA | | | LABORATORY | | | (LAB) | | | SERVICES, | | | | | | CORE | | + +---------+ + + + | BILIRUBIN | 0.3 | 0.3 - 1.2 mg/dL | [facility] | | | TOTAL | | | LABORATORY | | | | | | SERVICES, | | | | | | CORE | | + +---------+ + + + | BILIRUBIN | <0.1 | 0.0 - 0.3 mg/dL | [facility] | | | DIRECT | | | LABORATORY | | | | | | SERVICES, | | | | | | CORE | | + +---------+ + + + | ALK PHOS | 213 (H) | 53 - 128 U/L | [facility] | | | | | | LABORATORY | | | | | | SERVICES, | | | | | | CORE | | + +---------+ + + + | AST(SGOT) | 25 | <=41 U/L | [facility] | | | | | | LABORATORY | | | | | | SERVICES, | | | | | | CORE | | + +---------+ + + + | ALT (SGPT) | 40 | <=60 U/L | [facility] | | | | | | LABORATORY | | | | | | SERVICES, | | | | | | CORE | | + +---------+ + + + | TOTAL | 7.4 | 6.4 - 8.2 g/dL | [facility] | | | PROTEIN, | | | LABORATORY | | | PLASMA | | | SERVICES, | | | (LAB) | | | CORE | | + +---------+ + + + | AST CMNT | No Hemo | | [facility] | | | | | | LABORATORY | | | | | | SERVICES, | | | | | | CORE | | + +---------+ + + + | BILI T CMNT | No Hemo | | [facility] | | | | | | LABORATORY | | | | | | SERVICES, | | | | | | CORE | | + +---------+ + + + | BRET Silva CMNT | No Hemo | | [facility] | | | | | | LABORATORY | | | | | | SERVICES, | | | | | | CORE | | + +---------+ + + + + + | Specimen | + + | Blood - Blood | | (substance) | + + + + + + + | Performing | Address | City/State/Zipcode | Phone Number | | Organization | | | | + + + + + | [facility] | [address] | [place] [address] | | | SERVICES, CORE | [address] | | | + + + + + RENAL FUNCTION SET (NA,K,CL,CO2,BUN,CREAT,GLUC,CA,PHOS,ALB ) (11/18/2017 7:45 AM PDT) + + + + + + | Component | Value | Ref Range | Performed | Pathologist | | | | | At | Signature | + + + + + + | GLUCOSE, | 114 (H) | 70 - 99 mg/dL | [facility] | | | PLASMA | | | LABORATORY | | | (LAB) | | | SERVICES, | | | | | | CORE | | + + + + + + | BUN, PLASMA | 16 | 6 - 20 mg/dL | [facility] | | | (LAB) | | | LABORATORY | | | | | | SERVICES, | | | | | | CORE | | + + + + + + | CREATININE | 0.53 (L) | 0.70 - 1.30 | [facility] | | | PLASMA | | mg/dL | LABORATORY | | | (LAB) | | | SERVICES, | | | | | | CORE | | + + + + + + | EGFR | >60 | >60 mL/min | [facility] | | | - | | | LABORATORY | | | SUDANESE | | | SERVICES, | | | | | | CORE | | + + + + + + | EGFR NON | >60 | >60 mL/min | [facility] | | | -KAYE | | | LABORATORY | | | RICAN | | | SERVICES, | | | | | | CORE | | + + + + + + | SODIUM, | 140 | 136 - 145 | [facility] | | | PLASMA | | mmol/L | LABORATORY | | | (LAB) | | | SERVICES, | | | | | | CORE | | + + + + + + | POTASSIUM, | 4.1 | 3.4 - 5.0 | [facility] | | | PLASMA | | mmol/L | LABORATORY | | | (LAB) | | | SERVICES, | | | | | | CORE | | + + + + + + | CHLORIDE, | 104 | 97 - 108 mmol/L | [facility] | | | PLASMA | | | LABORATORY | | | (LAB) | | | SERVICES, | | | | | | CORE | | + + + + + + | TOTAL CO2, | 29 | 21 - 32 mmol/L | [facility] | | | PLASMA | | | LABORATORY | | | (LAB) | | | SERVICES, | | | | | | CORE | | + + + + + + | CALCIUM, | 8.9 | 8.6 - 10.2 | [facility] | | | PLASMA | | mg/dL | LABORATORY | | | (LAB) | | | SERVICES, | | | | | | CORE | | + + + + + + | CALCIUM(ALB | 9.4 | 8.6 - 10.2 | [facility] | | | CORRECTED) | | mg/dL | LABORATORY | | | | | | SERVICES, | | | | | | CORE | | + + + + + + | ALBUMIN, | 3.4 (L) | 3.5 - 4.7 g/dL | [facility] | | | PLASMA | | | LABORATORY | | | (LAB) | | | SERVICES, | | | | | | CORE | | + + + + + + | PHOSPHORUS, | 4.2 | 2.4 - 4.7 mg/dL | [facility] | | | PLASMA | | | LABORATORY | | | (LAB) | | | SERVICES, | | | | | | CORE | | + + + + + + | POTASSIUM | No Hemo | | [facility] | | | CMNT | | | LABORATORY | | | | | | SERVICES, | | | | | | CORE | | + + + + + + | ANION GAP | 7 | 4 - 11 mmol/L | [facility] | | | | | | LABORATORY | | | | | | SERVICES, | | | | | | CORE | | + + + + + + | ANION | 8 | 4 - 11 mmol/L | [facility] | | | GAP(ALB | | | LABORATORY | | | CORRECTED) | | | SERVICES, | | | | | | CORE | | + + + + + + + + | Specimen | + + | Blood - Blood | | (substance) | + + + + + | Narrative | Performed At | + + + | GFR is estimated using the MDRD equation recommended by the | [facility] | | National Kidney Disease Education Program. Estimated GFR | LABORATORY | | Interpretive Information: <60 mL/min/1.73 sq m | SERVICES, CORE | | Chronic Kidney Disease <15 mL/min/1.73 sq m | | | Kidney Failure Estimated GFR greater that 60 mL/min/1.73 sq m is of | | | limited clinical value. The MDRD equation is not valid in the | | | following situations: - Patients under 18 years of age - Severe | | | malnutrition or obesity - Vegetarian diet - Rapidly changing kidney | | | function - Amputees, paraplegics, or other muscle-wasting diseses | | + + + + + + + + | Performing | Address | City/State/Zipcode | Phone Number | | Organization | | | | + + + + + | [id number] | [address] | [place] [address] | | | SERVICES, CORE | [address] | | | + + + + + MAGNESIUM, PLASMA (11/18/2017 7:45 AM PDT) + +-------+ + + + | Component | Value | Ref Range | Performed | Pathologist | | | | | At | Signature | + +-------+ + + + | MAGNESIUM,P | 2.2 | 1.6 - 2.6 mg/dL | [facility] | | | LASMA | | | LABORATORY | | | | | | SERVICES, | | | | | | CORE | | + +-------+ + + + + + | Specimen | + + | Blood - Blood | | (substance) | + + + + + | Narrative | Performed At | + + + | Reference range change effective 12/11/16. | [facility] | | | LABORATORY | | | SERVICES, CORE | + + + + + + + + | Performing | Address | City/State/Zipcode | Phone Number | | Organization | | | | + + + + + | [facility] | [address] | [place] [address] | | | SERVICES, CORE | [address] | | | + + + + + 12 LEAD ECG (11/17/2017 9:36 AM PDT) + + + + + + | Component | Value | Ref Range | Performed | Pathologist | | | | | At | Signature | + + + + + + | VENTRICULAR | 67 | bpm | [facility] | | | RATE | | | OF | | | | | | CARDIOLOGY | | + + + + + + | ATRIAL RATE | 67 | ms | [facility] | | | | | | OF | | | | | | CARDIOLOGY | | + + + + + + | P-R | 167 | ms | [facility] | | | INTERVAL | | | OF | | | | | | CARDIOLOGY | | + + + + + + | P AXIS | 111 | deg | [facility] | | | | | | OF | | | | | | CARDIOLOGY | | + + + + + + | QRS | 126 | ms | [facility] | | | DURATION | | | OF | | | | | | CARDIOLOGY | | + + + + + + | QT | 405 | ms | [facility] | | | | | | OF | | | | | | CARDIOLOGY | | + + + + + + | QTC-BABRAYDONTT | 427 | ms | [facility] | | | | | | OF | | | | | | CARDIOLOGY | | + + + + + + | R AXIS | 87 | deg | [facility] | | | | | | OF | | | | | | CARDIOLOGY | | + + + + + + | T AXIS | 14 | deg | [facility] | | | | | | OF | | | | | | CARDIOLOGY | | + + + + + + | ECG | Sinus rhythm | | [facility] | | | IMPRESSION | | | OF | | | | | | CARDIOLOGY | | + + + + + + | ECG | Right bundle branch | | [facility] | | | IMPRESSION | block- ABNORMAL ECG - | | OF | | | | | | CARDIOLOGY | | + + + + + + | ECG | Electronically signed | | [facility] | | | IMPRESSION | by: AJAY DE LOS SANTOS | | OF | | | | 11-17-2017 09:44:21 | | CARDIOLOGY | | + + + + + + + + | Specimen | + + | | + + + + + | Narrative | Performed At | + + + | | | + + + + + + + + | Performing | Address | City/State/Zipcode | Phone Number | | Organization | | | | + + + + + | [facility] | [address] | [place], [place] | | | CARDIOLOGY | [address] | [address] | | + + + + + 12 LEAD ECG (11/16/2017 11:09 AM PDT) + + + + + + | Component | Value | Ref Range | Performed | Pathologist | | | | | At | Signature | + + + + + + | VENTRICULAR | 68 | bpm | [facility] | | | RATE | | | OF | | | | | | CARDIOLOGY | | + + + + + + | ATRIAL RATE | 67 | ms | [facility] | | | | | | OF | | | | | | CARDIOLOGY | | + + + + + + | P-R | 135 | ms | [facility] | | | INTERVAL | | | OF | | | | | | CARDIOLOGY | | + + + + + + | P AXIS | 53 | deg | [facility] | | | | | | OF | | | | | | CARDIOLOGY | | + + + + + + | QRS | 129 | ms | [facility] | | | DURATION | | | OF | | | | | | CARDIOLOGY | | + + + + + + | QT | 423 | ms | [facility] | | | | | | OF | | | | | | CARDIOLOGY | | + + + + + + | QTC-BAZETT | 449 | ms | [facility] | | | | | | OF | | | | | | CARDIOLOGY | | + + + + + + | R AXIS | 75 | deg | [facility] | | | | | | OF | | | | | | CARDIOLOGY | | + + + + + + | T AXIS | 30 | deg | [facility] | | | | | | OF | | | | | | CARDIOLOGY | | + + + + + + | ECG | Sinus rhythm | | [facility] | | | IMPRESSION | | | OF | | | | | | CARDIOLOGY | | + + + + + + | ECG | Right bundle branch | | [facility] | | | IMPRESSION | block- ABNORMAL ECG - | | OF | | | | | | CARDIOLOGY | | + + + + + + | ECG | Electronically signed | | [facility] | | | IMPRESSION | by: AJAY DE LOS SANTOS | | OF | | | | 11-16-2017 11:21:38 | | CARDIOLOGY | | + + + + + + + + | Specimen | + + | | + + + + + | Narrative | Performed At | + + + | | | + + + + + + + + | Performing | Address | City/State/Zipcode | Phone Number | | Organization | | | | + + + + + | [facility] | [address] | [place], [place] | | | CARDIOLOGY | [address] | [address] | | + + + + + CBC (HEMOGRAM) ONLY (11/15/2017 2:15 PM PDT) + + + + + + | Component | Value | Ref Range | Performed | Pathologist | | | | | At | Signature | + + + + + + | WHITE CELL | 5.17 | 3.50 - 10.80 | [facility] | | | COUNT | | K/cu mm | LABORATORY | | | | | | SERVICES, | | | | | | CORE | | + + + + + + | RED CELL | 3.37 (L) | 4.50 - 6.00 | [facility] | | | COUNT | | M/cu mm | LABORATORY | | | | | | SERVICES, | | | | | | CORE | | + + + + + + | HEMOGLOBIN | 9.8 (L) | 13.5 - 17.5 | [facility] | | | | | g/dL | LABORATORY | | | | | | SERVICES, | | | | | | CORE | | + + + + + + | HEMATOCRIT | 31.1 (L) | 41.0 - 53.0 % | [facility] | | | | | | LABORATORY | | | | | | SERVICES, | | | | | | CORE | | + + + + + + | MCV | 92.3 | 80.0 - 100.0 fL | [facility] | | | | | | LABORATORY | | | | | | SERVICES, | | | | | | CORE | | + + + + + + | MCHC | 31.5 (L) | 32.0 - 36.0 | [facility] | | | | | g/dL | LABORATORY | | | | | | SERVICES, | | | | | | CORE | | + + + + + + | RDW SD | 51.1 (H) | 35.1 - 46.3 fL | [facility] | | | | | | LABORATORY | | | | | | SERVICES, | | | | | | CORE | | + + + + + + | PLATELET | 177 | 150 - 400 K/cu | [facility] | | | COUNT | | mm | LABORATORY | | | | | | SERVICES, | | | | | | CORE | | + + + + + + | MPV | 10.3 | 9.7 - 12.3 fL | [facility] | | | | | | LABORATORY | | | | | | SERVICES, | | | | | | CORE | | + + + + + + | NRBC% | 0.0 | 0.0 - 0.3 % | [facility] | | | | | | LABORATORY | | | | | | SERVICES, | | | | | | CORE | | + + + + + + | NRBC# | 0.00 | 0.00 - 0.02 | [facility] | | | | | K/cu mm | LABORATORY | | | | | | SERVICES, | | | | | | CORE | | + + + + + + + + | Specimen | + + | Blood - Blood | | (substance) | + + + + + | Narrative | Performed At | + + + | New reference ranges for MCV, MCHC, PLT, IG% and IG# effective | [facility] | | 09/05/2017 | LABORATORY | | | SERVICES, CORE | + + + + + + + + | Performing | Address | City/State/Zipcode | Phone Number | | Organization | | | | + + + + + | [facility] | [address] | [place] [address] | | | SERVICES, CORE | [address] | | | + + + + + 12 LEAD ECG (11/15/2017 8:21 AM PDT) + + + + + + | Component | Value | Ref Range | Performed | Pathologist | | | | | At | Signature | + + + + + + | VENTRICULAR | 51 | bpm | [facility] | | | RATE | | | OF | | | | | | CARDIOLOGY | | + + + + + + | ATRIAL RATE | 52 | ms | [facility] | | | | | | OF | | | | | | CARDIOLOGY | | + + + + + + | P-R | 144 | ms | [facility] | | | INTERVAL | | | OF | | | | | | CARDIOLOGY | | + + + + + + | P AXIS | 53 | deg | [facility] | | | | | | OF | | | | | | CARDIOLOGY | | + + + + + + | QRS | 156 | ms | [facility] | | | DURATION | | | OF | | | | | | CARDIOLOGY | | + + + + + + | QT | 444 | ms | [facility] | | | | | | OF | | | | | | CARDIOLOGY | | + + + + + + | QTC-BAZETT | 411 | ms | [facility] | | | | | | OF | | | | | | CARDIOLOGY | | + + + + + + | R AXIS | 87 | deg | [facility] | | | | | | OF | | | | | | CARDIOLOGY | | + + + + + + | T AXIS | 24 | deg | [facility] | | | | | | OF | | | | | | CARDIOLOGY | | + + + + + + | ECG | Sinus bradycardia | | [facility] | | | IMPRESSION | | | OF | | | | | | CARDIOLOGY | | + + + + + + | ECG | Right bundle branch | | [facility] | | | IMPRESSION | block- ABNORMAL ECG - | | OF | | | | | | CARDIOLOGY | | + + + + + + | ECG | Electronically signed | | [facility] | | | IMPRESSION | by: AJAY DE LOS SANTOS | | OF | | | | 11-16-2017 11:00:02 | | CARDIOLOGY | | + + + + + + + + | Specimen | + + | | + + + + + | Narrative | Performed At | + + + | | | + + + + + + + + | Performing | Address | City/State/Zipcode | Phone Number | | Organization | | | | + + + + + | [facility] | [phone] | [place], [place] | | | CARDIOLOGY | [address] | [address] | | + + + + + RENAL FUNCTION SET (NA,K,CL,CO2,BUN,CREAT,GLUC,CA,PHOS,ALB ) (11/14/2017 4:05 AM PDT) + + + + + + | Component | Value | Ref Range | Performed | Pathologist | | | | | At | Signature | + + + + + + | GLUCOSE, | 98 | 70 - 99 mg/dL | [facility] | | | PL[facility] | | | LABORATORY | | | (LAB) | | | SERVICES, | | | | | | CORE | | + + + + + + | BUN, PLASMA | 16 | 6 - 20 mg/dL | [facility] | | | (LAB) | | | LABORATORY | | | | | | SERVICES, | | | | | | CORE | | + + + + + + | CREATININE | 0.50 (L) | 0.70 - 1.30 | [facility] | | | PLASMA | | mg/dL | LABORATORY | | | (LAB) | | | SERVICES, | | | | | | CORE | | + + + + + + | EGFR | >60 | >60 mL/min | [facility] | | | - | | | LABORATORY | | | SUDANESE | | | SERVICES, | | | | | | CORE | | + + + + + + | EGFR NON | >60 | >60 mL/min |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 + + + + + + | ECG | Borderline ST elevation, | | [facility] | | | IMPRESSION | anterolateral leads- | | OF | | | | ABNORMAL ECG - | | CARDIOLOGY | | + + + + + + | ECG | Electronically signed | | [facility] | | | IMPRESSION | by: JULIO VIZCAINO | | OF | | | | 11-11-2017 13:02:39 | | CARDIOLOGY | | + + + + + + + + | Specimen | + + | | + + + + + | Narrative | Performed At | + + + | | | + + + + + + + + | Performing | Address | City/State/Zipcode | Phone Number | | Organization | | | | + + + + + | [facility] | [address] | [place], [place] | | | CARDIOLOGY | [address] | [address] | | + + + + + C-REACTIVE PROTEIN (11/11/2017 9:06 AM PDT) + +-------+ + + + | Component | Value | Ref Range | Performed | Pathologist | | | | | At | Signature | + +-------+ + + + | C-REACTIVE | <2.9 | <10.0 mg/L | [facility] | | | PROTEIN | | | LABORATORY | | | | | | SERVICES, | | | | | | CORE | | + +-------+ + + + + + | Specimen | + + | Blood - Blood | | (substance) | + + + + + | Narrative | Performed At | + + + | New method, new reference range and new reporting units as of | [facility] | | 09/30/2013. | LABORATORY | | | SERVICES, CORE | + + + + + + + + | Performing | Address | City/State/Zipcode | Phone Number | | Organization | | | | + + + + + | [facility] | [address] | [place] [address] | | | SERVICES, CORE | [address] | | | + + + + + PREALBUMIN (11/11/2017 9:06 AM PDT) + +-------+ + + + | Component | Value | Ref Range | Performed | Pathologist | | | | | At | Signature | + +-------+ + + + | PREALBUMIN | 25.4 | 17.0 - 42.0 | [facility] | | | | | mg/dL | [facility] | | | | [facility] | | + +-------+ + + + + + | Specimen | + + | Blood - Blood | | (substance) | + + + + + + + | Performing | Address | City/State/Zipcode | Phone Number | | Organization | | | | + + + + + | [facility] | [address] | [place] [address] | | | [place] | | | | + + + + + TRIGLYCERIDES, PLASMA (11/11/2017 9:06 AM PDT) + +-------+ + + + | Component | Value | Ref Range | Performed | Pathologist | | | | | At | Signature | + +-------+ + + + | TRIGLYCERID | 117 | <150 mg/dL | [facility] | | | ES | | | LABORATORY | | | | | | SERVICES, | | | | | | CORE | | + +-------+ + + + + + | Specimen | + + | Blood - Blood | | (substance) | + + + + + | Narrative | Performed At | + + + | Triglyceride Reference Range: Normal: <150 | [facility] | | mg/dL Borderline High: 150-199 mg/dL High: | LABORATORY | | 200-499 mg/dL Very High: >=500 mg/dL | SERVICES, CORE | + + + + + + + + | Performing | Address | City/State/Zipcode | Phone Number | | Organization | | | | + + + + + | [facility] | [address] | [place] [address] | | | SERVICES, CORE | [address] | | | + + + + + CALCIUM, IONIZED, WHOLE BLOOD (11/11/2017 9:06 AM PDT) + + + + + + | Component | Value | Ref Range | Performed | Pathologist | | | | | At | Signature | + + + + + + | MAHOGANY ICA, | 1.12 (L) | 1.14 - 1.32 | [facility] | | | WHOLE BLD | | mmol/L | LABORATORY | | | | | | SERVICES, | | | | | | CORE | | + + + + + + | PH, WHOLE | 7.39 | | [facility] | | | BLOOD | | | LABORATORY | | | | | | SERVICES, | | | | | | CORE | | + + + + + + | ICA, | 1.12 (L) | 1.14 - 1.28 | [facility] | | | CORRECTED | | mmol/L | LABORATORY | | | TO PH 7.4 | | | SERVICES, | | | | | | CORE | | + + + + + + + + | Specimen | + + | Blood - Blood | | (substance) | + + + + + + + | Performing | Address | City/State/Zipcode | Phone Number | | Organization | | | | + + + + + | [facility] | [address] | [place] [address] | | | SERVICES, CORE | [address] | | | + + + + + LIVER SET (AST,ALT,BILI TOTAL,BILI DIRECT,ALK PHOS,ALB,PROT TOTAL) (11/11/2017 9:06 AM PDT ) + +---------+ + + + | Component | Value | Ref Range | Performed | Pathologist | | | | | At | Signature | + +---------+ + + + | ALBUMIN, | 3.1 (L) | 3.5 - 4.7 g/dL | [facility] | | | PLASMA | | | LABORATORY | | | (LAB) | | | SERVICES, | | | | | | CORE | | + +---------+ + + + | BILIRUBIN | 0.2 (L) | 0.3 - 1.2 mg/dL | [facility] | | | TOTAL | | | LABORATORY | | | | | | SERVICES, | | | | | | CORE | | + +---------+ + + + | BILIRUBIN | 0.1 | 0.0 - 0.3 mg/dL | [facility] | | | DIRECT | | | LABORATORY | | | | | | SERVICES, | | | | | | CORE | | + +---------+ + + + | ALK PHOS | 191 (H) | 53 - 128 U/L | [facility] | | | | | | LABORATORY | | | | | | SERVICES, | | | | | | CORE | | + +---------+ + + + | AST(SGOT) | 25 | <=41 U/L | [facility] | | | | | | LABORATORY | | | | | | SERVICES, | | | | | | CORE | | + +---------+ + + + | ALT (SGPT) | 35 | <=60 U/L | [facility] | | | | | | LABORATORY | | | | | | SERVICES, | | | | | | CORE | | + +---------+ + + + | TOTAL | 7.1 | 6.4 - 8.2 g/dL | [facility] | | | PROTEIN, | | | LABORATORY | | | PLASMA | | | SERVICES, | | | (LAB) | | | CORE | | + +---------+ + + + | AST CMNT | No Hemo | | [facility] | | | | | | LABORATORY | | | | | | SERVICES, | | | | | | CORE | | + +---------+ + + + | BILI T CMNT | No Hemo | | [facility] | | | | | | LABORATORY | | | | | | SERVICES, | | | | | | CORE | | + +---------+ + + + | BRET Silva CMNT | No Hemo | | [facility] | | | | | | LABORATORY | | | | | | SERVICES, | | | | | | CORE | | + +---------+ + + + + + | Specimen | + + | Blood - Blood | | (substance) | + + + + + + + | Performing | Address | City/State/Zipcode | Phone Number | | Organization | | | | + + + + + | [facility] | [address] | [place] [address] | | | SERVICES, CORE | [address] | | | + + + + + RENAL FUNCTION SET (NA,K,CL,CO2,BUN,CREAT,GLUC,CA,PHOS,ALB ) (11/11/2017 9:06 AM PDT) + + + + + + | Component | Value | Ref Range | Performed | Pathologist | | | | | At | Signature | + + + + + + | GLUCOSE, | 95 | 70 - 99 mg/dL | [facility] | | | PLASMA | | | LABORATORY | | | (LAB) | | | SERVICES, | | | | | | CORE | | + + + + + + | BUN, PLASMA | 16 | 6 - 20 mg/dL | [facility] | | | (LAB) | | | LABORATORY | | | | | | SERVICES, | | | | | | CORE | | + + + + + + | CREATININE | 0.56 (L) | 0.70 - 1.30 | [facility] | | | PLASMA | | mg/dL | LABORATORY | | | (LAB) | | | SERVICES, | | | | | | CORE | | + + + + + + | EGFR | >60 | >60 mL/min | [facility] | | | - | | | LABORATORY | | | SUDANESE | | | SERVICES, | | | | | | CORE | | + + + + + + | EGFR NON | >60 | >60 mL/min | [facility] | | | -KAYE | | | LABORATORY | | | RICAN | | | SERVICES, | | | | | | CORE | | + + + + + + | SODIUM, | 140 | 136 - 145 | [facility] | | | PLASMA | | mmol/L | LABORATORY | | | (LAB) | | | SERVICES, | | | | | | CORE | | + + + + + + | POTASSIUM, | 4.0 | 3.4 - 5.0 | [facility] | | | PLASMA | | mmol/L | LABORATORY | | | (LAB) | | | SERVICES, | | | | | | CORE | | + + + + + + | CHLORIDE, | 104 | 97 - 108 mmol/L | [facility] | | | PLASMA | | | LABORATORY | | | (LAB) | | | SERVICES, | | | | | | CORE | | + + + + + + | TOTAL CO2, | 32 | 21 - 32 mmol/L | [facility] | | | PLASMA | | | LABORATORY | | | (LAB) | | | SERVICES, | | | | | | CORE | | + + + + + + | CALCIUM, | 8.6 | 8.6 - 10.2 | [facility] | | | PLASMA | | mg/dL | LABORATORY | | | (LAB) | | | SERVICES, | | | | | | CORE | | + + + + + + | CALCIUM(ALB | 9.3 | 8.6 - 10.2 | [facility] | | | CORRECTED) | | mg/dL | LABORATORY | | | | | | SERVICES, | | | | | | CORE | | + + + + + + | ALBUMIN, | 3.1 (L) | 3.5 - 4.7 g/dL | [facility] | | | PLASMA | | | LABORATORY | | | (LAB) | | | SERVICES, | | | | | | CORE | | + + + + + + | PHOSPHORUS, | 4.1 | 2.4 - 4.7 mg/dL | [facility] | | | PLASMA | | | LABORATORY | | | (LAB) | | | SERVICES, | | | | | | CORE | | + + + + + + | POTASSIUM | No Hemo | | [facility] | | | CMNT | | | LABORATORY | | | | | | SERVICES, | | | | | | CORE | | + + + + + + | ANION GAP | 4 | 4 - 11 mmol/L | [facility] | | | | | | LABORATORY | | | | | | SERVICES, | | | | | | CORE | | + + + + + + | ANION | 6 | 4 - 11 mmol/L | [facility] | | | GAP(ALB | | | LABORATORY | | | CORRECTED) | | | SERVICES, | | | | | | CORE | | + + + + + + + + | Specimen | + + | Blood - Blood | | (substance) | + + + + + | Narrative | Performed At | + + + | GFR is estimated using the MDRD equation recommended by the | [facility] | | National Kidney Disease Education Program. Estimated GFR | LABORATORY | | Interpretive Information: <60 mL/min/1.73 sq m | SERVICES, CORE | | Chronic Kidney Disease <15 mL/min/1.73 sq m | | | Kidney Failure Estimated GFR greater that 60 mL/min/1.73 sq m is of | | | limited clinical value. The MDRD equation is not valid in the | | | following situations: - Patients under 18 years of age - Severe | | | malnutrition or obesity - Vegetarian diet - Rapidly changing kidney | | | function - Amputees, paraplegics, or other muscle-wasting diseses | | + + + + + + + + | Performing | Address | City/State/Zipcode | Phone Number | | Organization | | | | + + + + + | [facility] | [address] | [place] [address] | | | SERVICES, CORE | [address] | | | + + + + + MAGNESIUM, PLASMA (11/11/2017 9:06 AM PDT) + +-------+ + + + | Component | Value | Ref Range | Performed | Pathologist | | | | | At | Signature | + +-------+ + + + | MAGNESIUM,P | 2.1 | 1.6 - 2.6 mg/dL | [facility] | | | LASMA | | | LABORATORY | | | | | | SERVICES, | | | | | | CORE | | + +-------+ + + + + + | Specimen | + + | Blood - Blood | | (substance) | + + + + + | Narrative | Performed At | + + + | Reference range change effective 12/11/16. | [facility] | | | LABORATORY | | | SERVICES, CORE | + + + + + + + + | Performing | Address | City/State/Zipcode | Phone Number | | Organization | | | | + + + + + | [facility] | [address] | [place] [address] | | | SERVICES, CORE | [address] | | | + + + + + MAGNESIUM, PLASMA (11/11/2017 9:06 AM PDT) + +-------+ + + + | Component | Value | Ref Range | Performed | Pathologist | | | | | At | Signature | + +-------+ + + + | MAGNESIUM,P | 2.1 | 1.6 - 2.6 mg/dL | [facility] | | | LASMA | | | LABORATORY | | | | | | SERVICES, | | | | | | CORE | | + +-------+ + + + + + | Specimen | + + | Blood - Blood | | (substance) | + + + + + | Narrative | Performed At | + + + | Reference range change effective 12/11/16. | [facility] | | | LABORATORY | | | SERVICES, CORE | + + + + + + + + | Performing | Address | City/State/Zipcode | Phone Number | | Organization | | | | + + + + + | [facility] | [address] | [place] [address] | | | SERVICES, CORE | [address] | | | + + + + + RENAL FUNCTION SET (NA,K,CL,CO2,BUN,CREAT,GLUC,CA,PHOS,ALB ) (11/11/2017 9:06 AM PDT) + + + + + + | Component | Value | Ref Range | Performed | Pathologist | | | | | At | Signature | + + + + + + | GLUCOSE, | 98 | 70 - 99 mg/dL | [facility] | | | PLASMA | | | LABORATORY | | | (LAB) | | | SERVICES, | | | | | | CORE | | + + + + + + | BUN, PLASMA | 16 | 6 - 20 mg/dL | [facility] | | | (LAB) | | | LABORATORY | | | | | | SERVICES, | | | | | | CORE | | + + + + + + | CREATININE | 0.44 (L) | 0.70 - 1.30 | [facility] | | | PLASMA | | mg/dL | LABORATORY | | | (LAB) | | | SERVICES, | | | | | | CORE | | + + + + + + | EGFR | >60 | >60 mL/min | [facility] | | | - | | | LABORATORY | | | SUDANESE | | | SERVICES, | | | | | | CORE | | + + + + + + | EGFR NON | >60 | >60 mL/min | [facility] | | | -KAYE | | | LABORATORY | | | RICAN | | | SERVICES, | | | | | | CORE | | + + + + + + | SODIUM, | 142 | 136 - 145 | [facility] | | | PLASMA | | mmol/L | LABORATORY | | | (LAB) | | | SERVICES, | | | | | | CORE | | + + + + + + | POTASSIUM, | 4.0 | 3.4 - 5.0 | [facility] | | | PLASMA | | mmol/L | LABORATORY | | | (LAB) | | | SERVICES, | | | | | | CORE | | + + + + + + | CHLORIDE, | 105 | 97 - 108 mmol/L | [facility] | | | PLASMA | | | LABORATORY | | | (LAB) | | | SERVICES, | | | | | | CORE | | + + + + + + | TOTAL CO2, | 31 | 21 - 32 mmol/L | [facility] | | | PLASMA | | | LABORATORY | | | (LAB) | | | SERVICES, | | | | | | CORE | | + + + + + + | CALCIUM, | 8.7 | 8.6 - 10.2 | [facility] | | | PLASMA | | mg/dL | LABORATORY | | | (LAB) | | | SERVICES, | | | | | | CORE | | + + + + + + | CALCIUM(ALB | 9.4 | 8.6 - 10.2 | [facility] | | | CORRECTED) | | mg/dL | LABORATORY | | | | | | SERVICES, | | | | | | CORE | | + + + + + + | ALBUMIN, | 3.1 (L) | 3.5 - 4.7 g/dL | [facility] | | | PLASMA | | | LABORATORY | | | (LAB) | | | SERVICES, | | | | | | CORE | | + + + + + + | PHOSPHORUS, | 4.3 | 2.4 - 4.7 mg/dL | [facility] | | | PLASMA | | | LABORATORY | | | (LAB) | | | SERVICES, | | | | | | CORE | | + + + + + + | POTASSIUM | No Hemo | | [facility] | | | CMNT | | | LABORATORY | | | | | | SERVICES, | | | | | | CORE | | + + + + + + | ANION GAP | 6 | 4 - 11 mmol/L | [facility] | | | | | | LABORATORY | | | | | | SERVICES, | | | | | | CORE | | + + + + + + | ANION | 8 | 4 - 11 mmol/L | [facility] | | | GAP(ALB | | | LABORATORY | | | CORRECTED) | | | SERVICES, | | | | | | CORE | | + + + + + + + + | Specimen | + + | Blood - Blood | | (substance) | + + + + + | Narrative | Performed At | + + + | GFR is estimated using the MDRD equation recommended by the | [facility] | | National Kidney Disease Education Program. Estimated GFR | LABORATORY | | Interpretive Information: <60 mL/min/1.73 sq m | [facility], CORE | | Chronic Kidney Disease <15 mL/min/1.73 sq m | | | Kidney Failure Estimated GFR greater that 60 mL/min/1.73 sq m is of | | | limited clinical value. The MDRD equation is not valid in the | | | following situations: - Patients under 18 years of age - Severe | | | malnutrition or obesity - Vegetarian diet - Rapidly changing kidney | | | function - Amputees, paraplegics, or other muscle-wasting diseses | | + + + + + + + + | Performing | Address | City/State/Zipcode | Phone Number | | Organization | | | | + + + + + | [facility] | [address] | [place] [address] | | | NATALEE [place] | [address] | | | + + + + + 12 LEAD ECG (11/10/2017 10:59 AM PDT) + + + + + + | Component | Value | Ref Range | Performed | Pathologist | | | | | At | Signature | + + + + + + | VENTRICULAR | 58 | bpm | [facility] | | | RATE | | | OF | | | | | | CARDIOLOGY | | + + + + + + | ATRIAL RATE | 58 | ms | [facility] | | | | | | OF | | | | | | CARDIOLOGY | | + + + + + + | P-R | 131 | ms | [facility] | | | INTERVAL | | | OF | | | | | | CARDIOLOGY | | + + + + + + | P AXIS | 64 | deg | [facility] | | | | | | OF | | | | | | CARDIOLOGY | | + + + + + + | QRS | 132 | ms | [facility] | | | DURATION | | | OF | | | | | | CARDIOLOGY | | + + + + + + | QT | 456 | ms | [facility] | | | | | | OF | | | | | | CARDIOLOGY | | + + + + + + | ANA LILIA-HALIMA | 447 | ms | [facility] | | | | | | OF | | | | | | CARDIOLOGY | | + + + + + + | R AXIS | 81 | deg | [facility] | | | | | | OF | | | | | | CARDIOLOGY | | + + + + + + | T AXIS | 25 | deg | [facility] | | | | | | OF | | | | | | CARDIOLOGY | | + + + + + + | ECG | Sinus bradycardia | | [facility] | | | IMPRESSION | | | OF | | | | | | CARDIOLOGY | | + + + + + + | ECG | Right bundle branch | | [facility] | | | IMPRESSION | block | | OF | | | | | | CARDIOLOGY | | + + + + + + | ECG | Borderline ST elevation, | | [facility] | | | IMPRESSION | anterolateral leads- | | OF | | | | ABNORMAL ECG - | | CARDIOLOGY | | + + + + + + | ECG | Electronically signed | | [facility] | | | IMPRESSION | by: JULIO VIZCAINO | | OF | | | | 11-11-2017 08:52:35 | | CARDIOLOGY | | + + + + + + + + | Specimen | + + | | + + + + + | Narrative | Performed At | + + + | | | + + + + + + + + | Performing | Address | City/State/Zipcode | Phone Number | | Organization | | | | + + + + + | [facility] | [address] | [place], [place] | | | CARDIOLOGY | [address] | [address] | | + + + + + MAGNESIUM, PLASMA (11/10/2017 10:19 AM PDT) + +-------+ + + + | Component | Value | Ref Range | Performed | Pathologist | | | | | At | Signature | + +-------+ + + + | MAGNESIUM,P | 2.0 | 1.6 - 2.6 mg/dL | [facility] | | | LASMA | | | LABORATORY | | | | | | SERVICES, | | | | | | CORE | | + +-------+ + + + + + | Specimen | + + | Blood - Blood | | (substance) | + + + + + | Narrative | Performed At | + + + | Reference range change effective 12/11/16. | [facility] | | | LABORATORY | | | SERVICES, CORE | + + + + + + + + | Performing | Address | City/State/Zipcode | Phone Number | | Organization | | | | + + + + + | [facility] | [address] | [place] [address] | | | SERVICES, CORE | [address] | | | + + + + + RENAL FUNCTION SET (NA,K,CL,CO2,BUN,CREAT,GLUC,CA,PHOS,ALB ) (11/10/2017 10:19 AM PDT) + + + + + + | Component | Value | Ref Range | Performed | Pathologist | | | | | At | Signature | + + + + + + | GLUCOSE, | 119 (H) | 70 - 99 mg/dL | [facility] | | | PLASMA | | | LABORATORY | | | (LAB) | | | SERVICES, | | | | | | CORE | | + + + + + + | BUN, PLASMA | 17 | 6 - 20 mg/dL | [facility] | | | (LAB) | | | LABORATORY | | | | | | SERVICES, | | | | | | CORE | | + + + + + + | CREATININE | 0.48 (L) | 0.70 - 1.30 | [facility] | | | PLASMA | | mg/dL | LABORATORY | | | (LAB) | | | SERVICES, | | | | | | CORE | | + + + + + + | EGFR | >60 | >60 mL/min | [facility] | | | - | | | LABORATORY | | | SUDANESE | | | SERVICES, | | | | | | CORE | | + + + + + + | EGFR NON | >60 | >60 mL/min | [facility] | | | -KAYE | | | LABORATORY | | | RICAN | | | SERVICES, | | | | | | CORE | | + + + + + + | SODIUM, | 140 | 136 - 145 | [facility] | | | PLASMA | | mmol/L | LABORATORY | | | (LAB) | | | SERVICES, | | | | | | CORE | | + + + + + + | POTASSIUM, | 4.1 | 3.4 - 5.0 | [facility] | | | PLASMA | | mmol/L | LABORATORY | | | (LAB) | | | SERVICES, | | | | | | CORE | | + + + + + + | CHLORIDE, | 105 | 97 - 108 mmol/L | [facility] | | | PLASMA | | | LABORATORY | | | (LAB) | | | SERVICES, | | | | | | CORE | | + + + + + + | TOTAL CO2, | 29 | 21 - 32 mmol/L | [facility] | | | PLASMA | | | LABORATORY | | | (LAB) | | | SERVICES, | | | | | | CORE | | + + + + + + | CALCIUM, | 8.7 | 8.6 - 10.2 | [facility] | | | PLASMA | | mg/dL | LABORATORY | | | (LAB) | | | SERVICES, | | | | | | CORE | | + + + + + + | CALCIUM(ALB | 9.3 | 8.6 - 10.2 | [facility] | | | CORRECTED) | | mg/dL | LABORATORY | | | | | | SERVICES, | | | | | | CORE | | + + + + + + | ALBUMIN, | 3.2 (L) | 3.5 - 4.7 g/dL | [facility] | | | PLASMA | | | LABORATORY | | | (LAB) | | | SERVICES, | | | | | | CORE | | + + + + + + | PHOSPHORUS, | 3.9 | 2.4 - 4.7 mg/dL | [facility] | | | PLASMA | | | LABORATORY | | | (LAB) | | | SERVICES, | | | | | | CORE | | + + + + + + | POTASSIUM | No Hemo | | [facility] | | | CMNT | | | LABORATORY | | | | | | SERVICES, | | | | | | CORE | | + + + + + + | ANION GAP | 6 | 4 - 11 mmol/L | [facility] | | | | | | LABORATORY | | | | | | SERVICES, | | | | | | CORE | | + + + + + + | ANION | 8 | 4 - 11 mmol/L | [facility] | | | GAP(ALB | | | LABORATORY | | | CORRECTED) | | | SERVICES, | | | | | | CORE | | + + + + + + + + | Specimen | + + | Blood - Blood | | (substance) | + + + + + | Narrative | Performed At | + + + | GFR is estimated using the MDRD equation recommended by the | [facility] | | National Kidney Disease Education Program. Estimated GFR | LABORATORY | | Interpretive Information: <60 mL/min/1.73 sq m | SERVICES, CORE | | Chronic Kidney Disease <15 mL/min/1.73 sq m | | | Kidney Failure Estimated GFR greater that 60 mL/min/1.73 sq m is of | | | limited clinical value. The MDRD equation is not valid in the | | | following situations: - Patients under 18 years of age - Severe | | | malnutrition or obesity - Vegetarian diet - Rapidly changing kidney | | | function - Amputees, paraplegics, or other muscle-wasting diseses | | + + + + + + + + | Performing | Address | City/State/Zipcode | Phone Number | | Organization | | | | + + + + + | [facility] | [address] | [place] [address] | | | SERVICES, CORE | [address] | | | + + + + + MAGNESIUM, PLASMA (11/09/2017 4:18 AM PDT) + +-------+ + + + | Component | Value | Ref Range | Performed | Pathologist | | | | | At | Signature | + +-------+ + + + | MAGNESIUM,P | 2.0 | 1.6 - 2.6 mg/dL | [facility] | | | LASMA | | | LABORATORY | | | | | | ELIN, | | | | | | CORE | | + +-------+ + + + + + | Specimen | + + | Blood - Blood | | (substance) | + + + + + | Narrative | Performed At | + + + | Reference range change effective 12/11/16. | [facility] | | | LABORATORY | | | [address] | + + + + + + + + | Performing | Address | City/State/Zipcode | Phone Number | | Organization | | | | + + + + + | [facility] | [address] | [place] [address] | | | SERVICES, NATALEE | [address] | | | + + + + + RENAL FUNCTION SET (NA,K,CL,CO2,BUN,CREAT,GLUC,CA,PHOS,ALB ) (11/09/2017 4:18 AM PDT) + + + + + + | Component | Value | Ref Range | Performed | Pathologist | | | | | At | Signature | + + + + + + | GLUCOSE, | 113 (H) | 70 - 99 mg/dL | [facility] | | | PLASMA | | | LABORATORY | | | (LAB) | | | SERVICES, | | | | | | CORE | | + + + + + + | BUN, PLASMA | 16 | 6 - 20 mg/dL | [facility] | | | (LAB) | | | LABORATORY | | | | | | SERVICES, | | | | | | CORE | | + + + + + + | CREATININE | 0.45 (L) | 0.70 - 1.30 | [facility] | | | PLASMA | | mg/dL | LABORATORY | | | (LAB) | | | SERVICES, | | | | | | CORE | | + + + + + + | EGFR | >60 | >60 mL/min | [facility] | | | - | | | LABORATORY | | | SUDANESE | | | SERVICES, | | | | | | CORE | | + + + + + + | EGFR NON | >60 | >60 mL/min | [facility] | | | -KAYE | | | LABORATORY | | | RICAN | | | SERVICES, | | | | | | CORE | | + + + + + + | SODIUM, | 144 | 136 - 145 | [facility] | | | PLASMA | | mmol/L | LABORATORY | | | (LAB) | | | SERVICES, | | | | | | CORE | | + + + + + + | POTASSIUM, | 3.4 | 3.4 - 5.0 | [facility] | | | PLASMA | | mmol/L | LABORATORY | | | (LAB) | | | SERVICES, | | | | | | CORE | | + + + + + + | CHLORIDE, | 107 | 97 - 108 mmol/L | [facility] | | | PLASMA | | | LABORATORY | | | (LAB) | | | SERVICES, | | | | | | CORE | | + + + + + + | TOTAL CO2, | 31 | 21 - 32 mmol/L | [facility] | | | PLASMA | | | LABORATORY | | | (LAB) | | | SERVICES, | | | | | | CORE | | + + + + + + | CALCIUM, | 8.3 (L) | 8.6 - 10.2 | [facility] | | | PLASMA | | mg/dL | LABORATORY | | | (LAB) | | | SERVICES, | | | | | | CORE | | + + + + + + | CALCIUM(ALB | 9.2 | 8.6 - 10.2 | [facility] | | | CORRECTED) | | mg/dL | LABORATORY | | | | | | SERVICES, | | | | | | CORE | | + + + + + + | ALBUMIN, | 2.9 (L) | 3.5 - 4.7 g/dL | [facility] | | | PLASMA | | | LABORATORY | | | (LAB) | | | SERVICES, | | | | | | CORE | | + + + + + + | PHOSPHORUS, | 3.8 | 2.4 - 4.7 mg/dL | [facility] | | | PLASMA | | | LABORATORY | | | (LAB) | | | SERVICES, | | | | | | CORE | | + + + + + + | POTASSIUM | No Hemo | | [facility] | | | CMNT | | | LABORATORY | | | | | | SERVICES, | | | | | | CORE | | + + + + + + | ANION GAP | 6 | 4 - 11 mmol/L | [facility] | | | | | | LABORATORY | | | | | | SERVICES, | | | | | | CORE | | + + + + + + | ANION | 8 | 4 - 11 mmol/L | [facility] | | | GAP(ALB | | | LABORATORY | | | CORRECTED) | | | SERVICES, | | | | | | CORE | | + + + + + + + + | Specimen | + + | Blood - Blood | | (substance) | + + + + + | Narrative | Performed At | + + + | GFR is estimated using the MDRD equation recommended by the | [facility] | | National Kidney Disease Education Program. Estimated GFR | LABORATORY | | Interpretive Information: <60 mL/min/1.73 sq m | SERVICES, CORE | | Chronic Kidney Disease <15 mL/min/1.73 sq m | | | Kidney Failure Estimated GFR greater that 60 mL/min/1.73 sq m is of | | | limited clinical value. The MDRD equation is not valid in the | | | following situations: - Patients under 18 years of age - Severe | | | malnutrition or obesity - Vegetarian diet - Rapidly changing kidney | | | function - Amputees, paraplegics, or other muscle-wasting diseses | | + + + + + + + + | Performing | Address | City/State/Zipcode | Phone Number | | Organization | | | | + + + + + | [facility] | [id number] | [place] [address] | | | SERVICES, CORE | [address] | | | + + + + + CT HEAD WO CONTRAST (11/08/2017 2:14 PM PDT) + + | Specimen | + + | | + + + + + | Narrative | Performed At | + + + | EXAM: CT HEAD WITHOUT CONTRAST HISTORY: left side hemineglect | [facility] | | COMPARISON: Outside head CT 03/12/2017. Head CT from yesterday. | RADIOLOGY VOICE | | TECHNIQUE: CT of the head without intravenous contrast. | RECOGNITION 2 | | FINDINGS: BRAIN: Again seen are changes of right mesh | | | cranioplasty. Extra-axial collection of gas and predominantly | | | hyperattenuating fluid overlying the right convexity appears similar | | | to yesterday's CT. Right temporal-occipital lobe encephalomalacia | | | appears unchanged. No loss of cortical hahn-white matter | | | differentiation or basal ganglia hypodensity. No new intracranial | | | hemorrhage. Ventricles appear similar to prior. No herniation or mass | | | identified. SOFT TISSUES: Left frontal scalp lipoma, as before. | | | SKULL AND SKULL BASE: Redemonstration of numerous indeterminate | | | sclerotic foci in the calvarium which appear similar to February 2017 | | | CT. Mastoids and middle ears are unremarkable. FACE/ORBITS: Bilateral | | | lamina papyracea fractures, as before. PARANASAL SINUSES: Visualized | | | portions are unremarkable. IMPRESSION: No definite change | | | compared to yesterday's head CT. No CT evidence of acute large vessel | | | infarction. No new intracranial hemorrhage. Redemonstration of | | | numerous sclerotic lesions in the calvarium which appear similar to | | | February 2017 CT. These are indeterminant. Metastatic disease could | | | have this appearance. I have personally reviewed the images and, | | | if necessary, edited the report. I agree with the report as now | | | presented. Final signature: Nubia Batista MD 11/08/2017 | | | 2:30 PM Preliminary: Nubia Batista MD Dictation | | | initiated: Nubia Batista MD 11/08/2017 2:19 PM | | + + + + + | Procedure Note | + + | Service Account, Radiant Res In Interface - 11/08/2017 2:31 PM PDT EXAM: CT HEAD | | WITHOUT CONTRAST HISTORY: left side hemineglect COMPARISON: Outside head CT | | 03/12/2017. Head CT from yesterday. TECHNIQUE: CT of the head without intravenous | | contrast. FINDINGS: BRAIN: Again seen are changes of right mesh cranioplasty. | | Extra-axial collection of gas and predominantly hyperattenuating fluid overlying the | | right convexity appears similar to yesterday's CT. Right temporal-occipital lobe | | encephalomalacia appears unchanged. No loss of cortical hahn-white matter | | differentiation or basal ganglia hypodensity. No new intracranial hemorrhage. Ventricles | | appear similar to prior. No herniation or mass identified. SOFT TISSUES: Left frontal | | scalp lipoma, as before.SKULL AND SKULL BASE: Redemonstration of numerous indeterminate | | sclerotic foci in the calvarium which appear similar to February 2017 CT. Mastoids and | | middle ears are unremarkable.FACE/ORBITS: Bilateral lamina papyracea fractures, as | | before.PARANASAL SINUSES: Visualized portions are unremarkable. IMPRESSION: No definite | | change compared to yesterday's head CT. No CT evidence of acute large vessel infarction. | | No new intracranial hemorrhage. Redemonstration of numerous sclerotic lesions in the | | calvarium which appear similar to February 2017 CT. These are indeterminant. Metastatic | | disease could have this appearance. I have personally reviewed the images and, if | | necessary, edited the report. I agree with the report as now presented. Final | | signature: Nubia Batista MD 11/08/2017 2:30 PM Preliminary: Nubia Batista | | Dictation initiated: Nubia Batista MD 11/08/2017 2:19 PM | |No definite change compared to yesterday's head CT. No CT evidence of acute large vessel in farction. No new intracranial hemorrhage. | | | |Redemonstration of numerous sclerotic lesions in the calvarium which appear similar to 2016 CT. These are indeterminant. Metastatic disease could have this appearance. | | | |I have personally reviewed the images and, if necessary, edited the report. I agree with e report as now presented. | | | |Final signature: Nubia Batista MD 11/08/2017 2:30 PM | |Preliminary: Nubia Batista MD | |Dictation initiated: Nubia Batista MD 11/08/2017 2:19 PM | + + + +---------+ + + | Performing | Address | City/State/Zipcode | Phone Number | | Organization | | | | + +---------+ + + | [facility] | | | | | VOICE RECOGNITION 2 | | | | + +---------+ + + MAGNESIUM, PLASMA (11/08/2017 10:29 AM PDT) + +-------+ + + + | Component | Value | Ref Range | Performed | Pathologist | | | | | At | Signature | + +-------+ + + + | MAGNESIUM,P | 2.0 | 1.6 - 2.6 mg/dL | [facility] | | | LASMA | | | LABORATORY | | | | | | SERVICES, | | | | | | CORE | | + +-------+ + + + + + | Specimen | + + | Blood - Blood | | (substance) | + + + + + | Narrative | Performed At | + + + | Reference range change effective 12/11/16. | [facility] | | | LABORAT[facility] | | | [address] [place] | + + + + + + + + | Performing | Address | City/State/Zipcode | Phone Number | | Organization | | | | + + + + + | [facility] | [address] | [place] [address] | | | SERVICES, CORE | [address] | | | + + + + + RENAL FUNCTION SET (NA,K,CL,CO2,BUN,CREAT,GLUC,CA,PHOS,ALB ) (11/08/2017 10:29 AM PDT) + + + + + + | Component | Value | Ref Range | Performed | Pathologist | | | | | At | Signature | + + + + + + | GLUCOSE, | 111 (H) | 70 - 99 mg/dL | [facility] | | | PLASMA | | | LABORATORY | | | (LAB) | | | SERVICES, | | | | | | CORE | | + + + + + + | BUN, PLASMA | 13 | 6 - 20 mg/dL | [facility] | | | (LAB) | | | LABORATORY | | | | | | SERVICES, | | | | | | CORE | | + + + + + + | CREATININE | 0.44 (L) | 0.70 - 1.30 | [facility] | | | PLASMA | | mg/dL | LABORATORY | | | (LAB) | | | SERVICES, | | | | | | CORE | | + + + + + + | EGFR | >60 | >60 mL/min | [facility] | | | - | | | LABORATORY | | | SUDANESE | | | SERVICES, | | | | | | CORE | | + + + + + + | EGFR NON | >60 | >60 mL/min | [facility] | | | -KAYE | | | LABORATORY | | | RICAN | | | SERVICES, | | | | | | CORE | | + + + + + + | SODIUM, | 144 | 136 - 145 | [facility] | | | PLASMA | | mmol/L | LABORATORY | | | (LAB) | | | SERVICES, | | | | | | CORE | | + + + + + + | POTASSIUM, | 3.4 | 3.4 - 5.0 | [facility] | | | PLASMA | | mmol/L | LABORATORY | | | (LAB) | | | SERVICES, | | | | | | CORE | | + + + + + + | CHLORIDE, | 106 | 97 - 108 mmol/L | [facility] | | | PLASMA | | | LABORATORY | | | (LAB) | | | SERVICES, | | | | | | CORE | | + + + + + + | TOTAL CO2, | 30 | 21 - 32 mmol/L | [facility] | | | PLASMA | | | LABORATORY | | | (LAB) | | | SERVICES, | | | | | | CORE | | + + + + + + | CALCIUM, | 8.4 (L) | 8.6 - 10.2 | [facility] | | | PLASMA | | mg/dL | LABORATORY | | | (LAB) | | | SERVICES, | | | | | | CORE | | + + + + + + | CALCIUM(ALB | 9.3 | 8.6 - 10.2 | [facility] | | | CORRECTED) | | mg/dL | LABORATORY | | | | | | SERVICES, | | | | | | CORE | | + + + + + + | ALBUMIN, | 2.9 (L) | 3.5 - 4.7 g/dL | [facility] | | | PLASMA | | | LABORATORY | | | (LAB) | | | SERVICES, | | | | | | CORE | | + + + + + + | PHOSPHORUS, | 3.8 | 2.4 - 4.7 mg/dL | [facility] | | | PLASMA | | | LABORATORY | | | (LAB) | | | SERVICES, | | | | | | CORE | | + + + + + + | POTASSIUM | No Hemo | | [facility] | | | CMNT | | | LABORATORY | | | | | | SERVICES, | | | | | | CORE | | + + + + + + | ANION GAP | 8 | 4 - 11 mmol/L | [facility] | | | | | | LABORATORY | | | | | | SERVICES, | | | | | | CORE | | + + + + + + | ANION | 10 | 4 - 11 mmol/L | [facility] | | | GAP(ALB | | | LABORATORY | | | CORRECTED) | | | SERVICES, | | | | | | CORE | | + + + + + + + + | Specimen | + + | Blood - Blood | | (substance) | + + + + + | Narrative | Performed At | + + + | GFR is estimated using the MDRD equation recommended by the | [facility] | | National Kidney Disease Education Program. Estimated GFR | LABORATORY | | Interpretive Information: <60 mL/min/1.73 sq m | SERVICES, CORE | | Chronic Kidney Disease <15 mL/min/1.73 sq m | | | Kidney Failure Estimated GFR greater that 60 mL/min/1.73 sq m is of | | | limited clinical value. The MDRD equation is not valid in the | | | following situations: - Patients under 18 years of age - Severe | | | malnutrition or obesity - Vegetarian diet - Rapidly changing kidney | | | function - Amputees, paraplegics, or other muscle-wasting diseses | | + + + + + + + + | Performing | Address | City/State/Zipcode | Phone Number | | Organization | | | | + + + + + | [facility] | [address] | [place] [address] | | | SERVICES, CORE | [address] | | | + + + + + 12 LEAD ECG (11/08/2017 9:07 AM PDT) + + + + + + | Component | Value | Ref Range | Performed | Pathologist | | | | | At | Signature | + + + + + + | VENTRICULAR | 63 | bpm | [facility] | | | RATE | | | OF | | | | | | CARDIOLOGY | | + + + + + + | ATRIAL RATE | 63 | ms | [facility] | | | | | | OF | | | | | | CARDIOLOGY | | + + + + + + | P-R | 137 | ms | [facility] | | | INTERVAL | | | OF | | | | | | CARDIOLOGY | | + + + + + + | P AXIS | 82 | deg | [facility] | | | | | | OF | | | | | | CARDIOLOGY | | + + + + + + | QRS | 125 | ms | [facility] | | | DURATION | | | OF | | | | | | CARDIOLOGY | | + + + + + + | QT | 435 | ms | [facility] | | | | | | OF | | | | | | CARDIOLOGY | | + + + + + + | QTC-BAZETT | 446 | ms | [facility] | | | | | | OF | | | | | | CARDIOLOGY | | + + + + + + | R AXIS | 81 | deg | [facility] | | | | | | OF | | | | | | CARDIOLOGY | | + + + + + + | T AXIS | 29 | deg | [facility] | | | | | | OF | | | | | | CARDIOLOGY | | + + + + + + | ECG | Sinus rhythm | | [facility] | | | IMPRESSION | | | OF | | | | | | CARDIOLOGY | | + + + + + + | ECG | Right bundle branch | | [facility] | | | IMPRESSION | block- ABNORMAL ECG - | | OF | | | | | | CARDIOLOGY | | + + + + + + | ECG | Electronically signed | | [facility] | | | IMPRESSION | by: JULIO VIZCAINO | | OF | | | | 11-08-2017 17:47:08 | | CARDIOLOGY | | + + + + + + + + | Specimen | + + | | + + + + + | Narrative | Performed At | + + + | | | + + + + + + + + | Performing | Address | City/State/Zipcode | Phone Number | | Organization | | | | + + + + + | [facility] | [address] | [place], [place] | | | CARDIOLOGY | [address] | [address] | | + + + + + CT HEAD WO CONTRAST (11/07/2017 3:43 PM PDT) + + | Specimen | + + | | + + + + + | Narrative | Performed At | + + + | EXAM: CT HEAD WITHOUT CONTRAST HISTORY: eval s/p crani | [facility] | | COMPARISON: CT head without contrast 11/05/2017, CT head stereotactic | RADIOLOGY VOICE | | without contrast 10/31/2017 TECHNIQUE: CT of the head without | RECOGNITION 2 | | intravenous contrast. FINDINGS: BRAIN: Redemonstrated right | | | cranioplasty. Slightly decreased extra-axial air. Stable layering | | | right-sided extra-axial hyperdense fluid. Stable leftward midline | | | shift. Stable right temporal encephalomalacia. No evidence of mass, | | | or acute infarction. The ventricles are normal in size and | | | morphology. SOFT TISSUES: Unremarkable. SKULL AND SKULL BASE: | | | Right cranioplasty. No fractures or destructive lesions. Mastoids and | | | middle ears are unremarkable. FACE/ORBITS: Visualized portions are | | | unremarkable. PARANASAL SINUSES: Visualized portions are | | | unremarkable. IMPRESSION: Stable extra-axial hyperdense fluid | | | collections. Stable midline shift. I have personally reviewed the | | | images and, if necessary, edited the report. I agree with the report | | | as now presented. Final signature: Master Bender MD | | | 11/07/2017 4:04 PM Preliminary: Leif Caal MD Dictation | | | initiated: Leif Caal MD 11/07/2017 3:37 PM | | + + + + + | Procedure Note | + + | Service Account, Hickies Res In Interface - 11/07/2017 4:05 PM PDT EXAM: CT HEAD | | WITHOUT CONTRAST HISTORY: eval s/p crani COMPARISON: CT head without contrast | | 11/05/2017, CT head stereotactic without contrast 10/31/2017 TECHNIQUE: CT of the head | | without intravenous contrast. FINDINGS: BRAIN: Redemonstrated right cranioplasty. | | Slightly decreased extra-axial air. Stable layering right-sided extra-axial hyperdense | | fluid. Stable leftward midline shift. Stable right temporal encephalomalacia. No | | evidence of mass, or acute infarction. The ventricles are normal in size and | | morphology. SOFT TISSUES: Unremarkable.SKULL AND SKULL BASE: Right cranioplasty. No | | fractures or destructive lesions. Mastoids and middle ears are unremarkable.FACE/ORBITS: | | Visualized portions are unremarkable.PARANASAL SINUSES: Visualized portions are | | unremarkable. IMPRESSION: Stable extra-axial hyperdense fluid collections. Stable | | midline shift. I have personally reviewed the images and, if necessary, edited the | | report. I agree with the report as now presented. Final signature: Master Bender MD | | 11/07/2017 4:04 PM Preliminary: Leif Caal MD Dictation initiated: Prabhakar Ortega | 11/07/2017 3:37 PM | |FACE/ORBITS: Visualized portions are unremarkable. | |PARANASAL SINUSES: Visualized portions are unremarkable. | | | |IMPRESSION: | | | |Stable extra-axial hyperdense fluid collections. Stable midline shift. | | | |I have personally reviewed the images and, if necessary, edited the report. I agree with th e report as now presented. | | | |Final signature: Master Bender MD 11/07/2017 4:04 PM | |Preliminary: Leif Caal MD | |Dictation initiated: Leif Caal MD 11/07/2017 3:37 PM | + + + +---------+ + + | Performing | Address | City/State/Zipcode | Phone Number | | Organization | | | | + +---------+ + + | [facility] | | | | | VOICE RECOGNITION 2 | | | | + +---------+ + + 12 LEAD ECG (11/07/2017 9:30 AM PDT) + + + + + + | Component | Value | Ref Range | Performed | Pathologist | | | | | At | Signature | + + + + + + | VENTRICULAR | 83 | bpm | [facility] | | | RATE | | | OF | | | | | | CARDIOLOGY | | + + + + + + | ATRIAL RATE | 84 | ms | [facility] | | | | | | OF | | | | | | CARDIOLOGY | | + + + + + + | P-R | 135 | ms | [facility] | | | INTERVAL | | | OF | | | | | | CARDIOLOGY | | + + + + + + | P AXIS | 77 | deg | [facility] | | | | | | OF | | | | | | CARDIOLOGY | | + + + + + + | QRS | 129 | ms | [facility] | | | DURATION | | | OF | | | | | | CARDIOLOGY | | + + + + + + | QT | 421 | ms | [facility] | | | | | | OF | | | | | | CARDIOLOGY | | + + + + + + | QTC-BAZETT | 495 | ms | [facility] | | | | | | OF | | | | | | CARDIOLOGY | | + + + + + + | R AXIS | 90 | deg | [facility] | | | | | | OF | | | | | | CARDIOLOGY | | + + + + + + | T AXIS | 11 | deg | [facility] | | | | | | OF | | | | | | CARDIOLOGY | | + + + + + + | ECG | Sinus rhythm | | [facility] | | | IMPRESSION | | | OF | | | | | | CARDIOLOGY | | + + + + + + | ECG | Right bundle branch | | [facility] | | | IMPRESSION | block | | OF | | | | | | CARDIOLOGY | | + + + + + + | ECG | Borderline prolonged QT | | [facility] | | | IMPRESSION | interval- ABNORMAL ECG - | | OF | | | | | | CARDIOLOGY | | + + + + + + | ECG | Electronically signed | | [facility] | | | IMPRESSION | by: PAULO CAVAZOS | | OF | | | | 11-07-2017 12:30:43 | | CARDIOLOGY | | + + + + + + + + | Specimen | + + | | + + + + + | Narrative | Performed At | + + + | | | + + + + + + + + | Performing | Address | City/State/Zipcode | Phone Number | | Organization | | | | + + + + + | [facility] | [address] | [place], [place] | | | CARDIOLOGY | [address] | [address] | | + + + + + RENAL FUNCTION SET (NA,K,CL,CO2,BUN,CREAT,GLUC,CA,PHOS,ALB ) (11/07/2017 7:22 AM PDT) + + + + + + | Component | Value | Ref Range | Performed | Pathologist | | | | | At | Signature | + + + + + + | GLUCOSE, | 136 (H) | 70 - 99 mg/dL | [facility] | | | PLASMA | | | LABORATORY | | | (LAB) | | | SERVICES, | | | | | | CORE | | + + + + + + | BUN, PLASMA | 17 | 6 - 20 mg/dL | [facility] | | | (LAB) | | | LABORATORY | | | | | | SERVICES, | | | | | | CORE | | + + + + + + | CREATININE | 0.50 (L) | 0.70 - 1.30 | [facility] | | | PLASMA | | mg/dL | LABORATORY | | | (LAB) | | | SERVICES, | | | | | | CORE | | + + + + + + | EGFR | >60 | >60 mL/min | [facility] | | | - | | | LABORATORY | | | SUDANESE | | | SERVICES, | | | | | | CORE | | + + + + + + | EGFR NON | >60 | >60 mL/min | [facility] | | | -[facility]AYE | | | LABORATORY | | | RICAN | | | SERVICES, | | | | | | CORE | | + + + + + + | SODIUM, | 144 | 136 - 145 | [facility] | | | PLASMA | | mmol/L | LABORATORY | | | (LAB) | | | SERVICES, | | | | | | CORE | | + + + + + + | POTASSIUM, | 3.5 | 3.4 - 5.0 | [facility] | | | PLASMA | | mmol/L | LABORATORY | | | (LAB) | | | SERVICES, | | | | | | CORE | | + + + + + + | CHLORIDE, | 106 | 97 - 108 mmol/L | [facility] | | | PLASMA | | | LABORATORY | | | (LAB) | | | SERVICES, | | | | | | CORE | | + + + + + + | TOTAL CO2, | 29 | 21 - 32 mmol/L | [facility] | | | PLASMA | | | LABORATORY | | | (LAB) | | | SERVICES, | | | | | | CORE | | + + + + + + | CALCIUM, | 8.8 | 8.6 - 10.2 | [facility] | | | PLASMA | | mg/dL | LABORATORY | | | (LAB) | | | SERVICES, | | | | | | CORE | | + + + + + + | CALCIUM(ALB | 9.5 | 8.6 - 10.2 | [facility] | | | CORRECTED) | | mg/dL | LABORATORY | | | | | | SERVICES, | | | | | | CORE | | + + + + + + | ALBUMIN, | 3.1 (L) | 3.5 - 4.7 g/dL | [facility] | | | PLASMA | | | LABORATORY | | | (LAB) | | | SERVICES, | | | | | | CORE | | + + + + + + | PHOSPHORUS, | 3.4 | 2.4 - 4.7 mg/dL | [facility] | | | PLASMA | | | LABORATORY | | | (LAB) | | | SERVICES, | | | | | | CORE | | + + + + + + | POTASSIUM | No Hemo | | [facility] | | | CMNT | | | LABORATORY | | | | | | SERVICES, | | | | | | CORE | | + + + + + + | ANION GAP | 9 | 4 - 11 mmol/L | [facility] | | | | | | LABORATORY | | | | | | SERVICES, | | | | | | CORE | | + + + + + + | ANION | 11 | 4 - 11 mmol/L | [facility] | | | GAP(ALB | | | LABORATORY | | | CORRECTED) | | | SERVICES, | | | | | | CORE | | + + + + + + + + | Specimen | + + | Blood - Blood | | (substance) | + + + + + | Narrative | Performed At | + + + | GFR is estimated using the MDRD equation recommended by the | [facility] | | National Kidney Disease Education Program. Estimated GFR | LABORATORY | | Interpretive Information: <60 mL/min/1.73 sq m | SERVICES, CORE | | Chronic Kidney Disease <15 mL/min/1.73 sq m | | | Kidney Failure Estimated GFR greater that 60 mL/min/1.73 sq m is of | | | limited clinical value. The MDRD equation is not valid in the | | | following situations: - Patients under 18 years of age - Severe | | | malnutrition or obesity - Vegetarian diet - Rapidly changing kidney | | | function - Amputees, paraplegics, or other muscle-wasting diseses | | + + + + + + + + | Performing | Address | City/State/Zipcode | Phone Number | | Organization | | | | + + + + + | [facility] | [address] | [place] [address] | | | SERVICES, CORE | [address] | | | + + + + + MAGNESIUM, PLASMA (11/07/2017 7:22 AM PDT) + +-------+ + + + | Component | Value | Ref Range | Performed | Pathologist | | | | | At | Signature | + +-------+ + + + | MAGNESIUM,P | 1.8 | 1.6 - 2.6 mg/dL | [facility] | | | LASMA | | | LABORATORY | | | | | | ELIN, | | | | | | CORE | | + +-------+ + + + + + | Specimen | + + | Blood - Blood | | (substance) | + + + + + | Narrative | Performed At | + + + | Reference range change effective 12/11/16. | [facility] | | | LABORATORY | | | SERVICES, CORE | + + + + + + + + | Performing | Address | City/State/Zipcode | Phone Number | | Organization | | | | + + + + + | [facility] | [address] | [place] [address] | | | SERVICES, CORE | [address] | | | + + + + + PROCEDURE NOTE (11/06/2017 9:47 PM PDT)PRODUCT - RED CELLS LEUKOREDUCED (11/06/2017 8:03 AM PDT) + + + + + + | Component | Value | Ref Range | Performed | Pathologist | | | | | At | Signature | + + + + + + | PRODUCT | -1 RED BLOOD CELL | | [facility] | | | DESCRIPTION | ADENINE-SALINE ADDED | | LABORATORY | | | | LEUKOCYTE | | SERVICES, | | | | | | TRANSFUSION | | | | | | MEDICINE | | + + + + + + | PRODUCT | [id number] | | [facility] | | | UNIT # | | | LABORATORY | | | | | | SERVICES, | | | | | | TRANSFUSION | | | | | | MEDICINE | | + + + + + + | UNIT ABO | O | | [facility] | | | | | | LABORATORY | | | | | | SERVICES, | | | | | | TRANSFUSION | | | | | | MEDICINE | | + + + + + + | UNIT RH | POS | | [facility] | | | | | | LABORATORY | | | | | | SERVICES, | | | | | | TRANSFUSION | | | | | | MEDICINE | | + + + + + + | STATUS OF | Returned to Blood Bank | | [facility] | | | UNIT | | | LABORATORY | | | | | | SERVICES, | | | | | | TRANSFUSION | | | | | | MEDICINE | | + + + + + + | EXPIRATION | [id number] | | [facility] | | | DATE | | | LABORATORY | | | | | | SERVICES, | | | | | | TRANSFUSION | | | | | | MEDICINE | | + + + + + + | BLOOD TYPE | [id number] | | [facility] | | | BARCODE | | | LABORATORY | | | | | | SERVICES, | | | | | | TRANSFUSION | | | | | | MEDICINE | | + + + + + + | BLOOD | [id number] | | [facility] | | | PRODUCT | | | LABORATORY | | | CODE | | | SERVICES, | | | | | | TRANSFUSION | | | | | | MEDICINE | | + + + + + + + + | Specimen | + + | | + + + + + + + | Performing | Address | City/State/Zipcode | Phone Number | | Organization | | | | + + + + + | [facility] | [address] | [place] [address] | | | SERVICES, | [address] | | | | TRANSFUSION MEDICINE | | | | + + + + + PRODUCT - RED CELLS LEUKOREDUCED (11/06/2017 8:03 AM PDT) + + + + + + | Component | Value | Ref Range | Performed | Pathologist | | | | | At | Signature | + + + + + + | PRODUCT | -1 RED BLOOD CELL | | [facility] | | | DESCRIPTION | ADENINE-SALINE ADDED | | LABORATORY | | | | LEUKOCYTE | | SERVICES, | | | | | | TRANSFUSION | | | | | | MEDICINE | | + + + + + + | PRODUCT | [id number] | | [facility] | | | UNIT # | | | LABORATORY | | | | | | SERVICES, | | | | | | TRANSFUSION | | | | | | MEDICINE | | + + + + + + | UNIT ABO | O | | [facility] | | | | | | LABORATORY | | | | | | SERVICES, | | | | | | TRANSFUSION | | | | | | MEDICINE | | + + + + + + | UNIT RH | POS | | [facility] | | | | | | LABORATORY | | | | | | SERVICES, | | | | | | TRANSFUSION | | | | | | MEDICINE | | + + + + + + | STATUS OF | Returned to Blood Bank | | [facility] | | | UNIT | | | LABORATORY | | | | | | SERVICES, | | | | | | TRANSFUSION | | | | | | MEDICINE | | + + + + + + | EXPIRATION | [id number] | | [facility] | | | DATE | | | LABORATORY | | | | | | SERVICES, | | | | | | TRANSFUSION | | | | | | MEDICINE | | + + + + + + | BLOOD TYPE | [phone] | | [facility] | | | BARCODE | | | LABORATORY | | | | | | SERVICES, | | | | | | TRANSFUSION | | | | | | MEDICINE | | + + + + + + | BLOOD | [id number] | | [facility] | | | PRODUCT | | | LABORATORY | | | CODE | | | SERVICES, | | | | | | TRANSFUSION | | | | | | MEDICINE | | + + + + + + + + | Specimen | + + | | + + + + + + + | Performing | Address | City/State/Zipcode | Phone Number | | Organization | | | | + + + + + | [facility] | [address] | [place] [address] | | | SERVICES, | [address] | | | | TRANSFUSION MEDICINE | | | | + + + + + CBC (HEMOGRAM) ONLY (11/06/2017 1:44 AM PDT) + + + + + + | Component | Value | Ref Range | Performed | Pathologist | | | | | At | Signature | + + + + + + | WHITE CELL | 9.00 | 3.50 - 10.80 | [facility] | | | COUNT | | K/cu mm | LABORATORY | | | | | | SERVICES, | | | | | | CORE | | + + + + + + | RED CELL | 3.72 (L) | 4.50 - 6.00 | [facility] | | | COUNT | | M/cu mm | LABORATORY | | | | | | SERVICES, | | | | | | CORE | | + + + + + + | HEMOGLOBIN | 10.8 (L) | 13.5 - 17.5 | [facility] | | | | | g/dL | LABORATORY | | | | | | SERVICES, | | | | | | CORE | | + + + + + + | HEMATOCRIT | 34.0 (L) | 41.0 - 53.0 % | [facility] | | | | | | LABORATORY | | | | | | SERVICES, | | | | | | CORE | | + + + + + + | MCV | 91.4 | 80.0 - 100.0 fL | [facility] | | | | | | LABORATORY | | | | | | SERVICES, | | | | | | CORE | | + + + + + + | MCHC | 31.8 (L) | 32.0 - 36.0 | [facility] | | | | | g/dL | LABORATORY | | | | | | SERVICES, | | | | | | CORE | | + + + + + + | RDW SD | 50.9 (H) | 35.1 - 46.3 fL | [facility] | | | | | | LABORATORY | | | | | | SERVICES, | | | | | | CORE | | + + + + + + | PLATELET | 273 | 150 - 400 K/cu | [facility] | | | COUNT | | mm | LABORATORY | | | | | | SERVICES, | | | | | | CORE | | + + + + + + | MPV | 8.9 (L) | 9.7 - 12.3 fL | [facility] | | | | | | LABORATORY | | | | | | SERVICES, | | | | | | CORE | | + + + + + + | NRBC% | 0.0 | 0.0 - 0.3 % | [facility] | | | | | | LABORATORY | | | | | | SERVICES, | | | | | | CORE | | + + + + + + | NRBC# | 0.00 | 0.00 - 0.02 | [facility] | | | | | K/cu mm | LABORATORY | | | | | | SERVICES, | | | | | | CORE | | + + + + + + + + | Specimen | + + | Blood - Blood | | (substance) | + + + + + | Narrative | Performed At | + + + | New reference ranges for MCV, MCHC, PLT, IG% and IG# effective | [facility] | | 09/05/2017 | LABORATORY | | | [address] [place] | + + + + + + + + | Performing | Address | City/State/Zipcode | Phone Number | | Organization | | | | + + + + + | [facility] | [phone] | [place] [address] | | | NATALEE WORTHINGTON | [address] | | | + + + + + MAGNESIUM, PLASMA (11/06/2017 1:44 AM PDT) + +-------+ + + + | Component | Value | Ref Range | Performed | Pathologist | | | | | At | Signature | + +-------+ + + + | MAGNESIUM,P | 1.9 | 1.6 - 2.6 mg/dL | [facility] | | | LASMA | | | LABORATORY | | | | | | SERVICES, | | | | | | CORE | | + +-------+ + + + + + | Specimen | + + | Blood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 + + + | Performing | Address | City/State/Zipcode | Phone Number | | Organization | | | | + + + + + | [facility] | [address] | [place] [address] | | | NATALEE [address] | [address] | | | + + + + + COAGULOPATHY PANEL (INR,APTT,FIBRINOGEN) (11/05/2017 6:16 AM PDT) + + + + + + | Component | Value | Ref Range | Performed | Pathologist | | | | | At | Signature | + + + + + + | INR | 1.00 | 0.90 - 1.20 INR | [facility] | | | | | | LABORATORY | | | | | | SERVICES, | | | | | | CORE | | + + + + + + | APTT | 29.7 | 26.0 - 36.0 | [facility] | | | | | seconds | LABORATORY | | | | | | SERVICES, | | | | | | CORE | | + + + + + + | FIBRINOGEN | 358Comment: New | 150 - 450 mg/dL | [facility] | | | LEVEL | Reference Ranges as of | | LABORATORY | | | | 09/02/2017. | | SERVICES, | | | | | | CORE | | + + + + + + + + | Specimen | + + | Blood - Blood | | (substance) | + + + + + | Narrative | Performed At | + + + | INR Therapeutic ranges for full anticoagulation: INR for | [facility] | | Venous Thromboembolism (2.0 - 3.0) INR INR for | LABORATORY | | most patients with mech. valves (2.5 - 3.5) INR APTT | SERVICES, CORE | | Therapeutic Range: (75 - 120) sec | | | Heparin levels of 0.35 - 0.7 U/mL | | + + + + + + + + | Performing | Address | City/State/Zipcode | Phone Number | | Organization | | | | + + + + + | [facility] | [address] | [place] [address] | | | SERVICES, CORE | [address] | | | + + + + + CARDIOLOGY (11/05/2017 12:00 AM PDT) + + + | Narrative | Performed At | + + + | | | + + + PRODUCT - RED CELLS LEUKOREDUCED (11/04/2017 8:19 PM PDT) + + + + + + | Component | Value | Ref Range | Performed | Pathologist | | | | | At | Signature | + + + + + + | PRODUCT | -1 RED BLOOD CELL | | [facility] | | | DESCRIPTION | ADENINE-SALINE ADDED | | LABORATORY | | | | LEUKOCYTE | | SERVICES, | | | | | | TRANSFUSION | | | | | | MEDICINE | | + + + + + + | PRODUCT | [id number] | | [facility] | | | UNIT # | | | LABORATORY | | | | | | SERVICES, | | | | | | TRANSFUSION | | | | | | MEDICINE | | + + + + + + | UNIT ABO | O | | [facility] | | | | | | LABORATORY | | | | | | SERVICES, | | | | | | TRANSFUSION | | | | | | MEDICINE | | + + + + + + | UNIT RH | POS | | [facility] | | | | | | LABORATORY | | | | | | SERVICES, | | | | | | TRANSFUSION | | | | | | MEDICINE | | + + + + + + | STATUS OF | Returned to Blood Bank | | [facility] | | | UNIT | | | LABORATORY | | | | | | SERVICES, | | | | | | TRANSFUSION | | | | | | MEDICINE | | + + + + + + | EXPIRATION | [id number] | | [facility] | | | DATE | | | LABORATORY | | | | | | SERVICES, | | | | | | TRANSFUSION | | | | | | MEDICINE | | + + + + + + | BLOOD TYPE | 5100 | | [facility] | | | BARCODE | | | LABORATORY | | | | | | SERVICES, | | | | | | TRANSFUSION | | | | | | MEDICINE | | + + + + + + | BLOOD | [id number] | | [facility] | | | PRODUCT | | | LABORATORY | | | CODE | | | SERVICES, | | | | | | TRANSFUSION | | | | | | MEDICINE | | + + + + + + + + | Specimen | + + | | + + + + + + + | Performing | Address | City/State/Zipcode | Phone Number | | Organization | | | | + + + + + | [facility] | [address] | [place] [address] | | | SERVICES, | [address] | | | | TRANSFUSION MEDICINE | | | | + + + + + PRODUCT - RED CELLS LEUKOREDUCED (11/04/2017 8:19 PM PDT) + + + + + + | Component | Value | Ref Range | Performed | Pathologist | | | | | At | Signature | + + + + + + | PRODUCT | -1 RED BLOOD CELL | | [facility] | | | DESCRIPTION | ADENINE-SALINE ADDED | | LABORATORY | | | | LEUKOCYTE | | SERVICES, | | | | | | TRANSFUSION | | | | | | MEDICINE | | + + + + + + | PRODUCT | [id number] | | [facility] | | | UNIT # | | | LABORATORY | | | | | | SERVICES, | | | | | | TRANSFUSION | | | | | | MEDICINE | | + + + + + + | UNIT ABO | O | | [facility] | | | | | | LABORATORY | | | | | | SERVICES, | | | | | | TRANSFUSION | | | | | | MEDICINE | | + + + + + + | UNIT RH | POS | | [facility] | | | | | | LABORATORY | | | | | | SERVICES, | | | | | | TRANSFUSION | | | | | | MEDICINE | | + + + + + + | STATUS OF | Returned to Blood Bank | | [facility] | | | UNIT | | | LABORATORY | | | | | | SERVICES, | | | | | | TRANSFUSION | | | | | | MEDICINE | | + + + + + + | EXPIRATION | [id number] | | [facility] | | | DATE | | | LABORATORY | | | | | | SERVICES, | | | | | | TRANSFUSION | | | | | | MEDICINE | | + + + + + + | BLOOD TYPE | [phone] | | [facility] | | | BARCODE | | | LABORATORY | | | | | | SERVICES, | | | | | | TRANSFUSION | | | | | | MEDICINE | | + + + + + + | BLOOD | [id number] | | [facility] | | | PRODUCT | | | LABORATORY | | | CODE | | | SERVICES, | | | | | | TRANSFUSION | | | | | | MEDICINE | | + + + + + + + + | Specimen | + + | | + + + + + + + | Performing | Address | City/State/Zipcode | Phone Number | | Organization | | | | + + + + + | [facility] | [address] | [place] [address] | | | SERVICES, | [address] | | | | TRANSFUSION MEDICINE | | | | + + + + + CBC (HEMOGRAM) ONLY (11/04/2017 5:11 PM PDT) + + + + + + | Component | Value | Ref Range | Performed | Pathologist | | | | | At | Signature | + + + + + + | WHITE CELL | 5.68 | 3.50 - 10.80 | [facility] | | | COUNT | | K/cu mm | LABORATORY | | | | | | SERVICES, | | | | | | CORE | | + + + + + + | RED CELL | 3.83 (L) | 4.50 - 6.00 | [facility] | | | COUNT | | M/cu mm | LABORATORY | | | | | | SERVICES, | | | | | | CORE | | + + + + + + | HEMOGLOBIN | 11.2 (L) | 13.5 - 17.5 | [facility] | | | | | g/dL | LABORATORY | | | | | | SERVICES, | | | | | | CORE | | + + + + + + | HEMATOCRIT | 35.3 (L) | 41.0 - 53.0 % | [facility] | | | | | | LABORATORY | | | | | | SERVICES, | | | | | | CORE | | + + + + + + | MCV | 92.2 | 80.0 - 100.0 fL | [facility] | | | | | | LABORATORY | | | | | | SERVICES, | | | | | | CORE | | + + + + + + | MCHC | 31.7 (L) | 32.0 - 36.0 | [facility] | | | | | g/dL | LABORATORY | | | | | | SERVICES, | | | | | | CORE | | + + + + + + | RDW SD | 52.0 (H) | 35.1 - 46.3 fL | [facility] | | | | | | LABORATORY | | | | | | SERVICES, | | | | | | CORE | | + + + + + + | PLATELET | 221 | 150 - 400 K/cu | [facility] | | | COUNT | | mm | LABORATORY | | | | | | SERVICES, | | | | | | CORE | | + + + + + + | MPV | 9.2 (L) | 9.7 - 12.3 fL | [facility] | | | | | | LABORATORY | | | | | | SERVICES, | | | | | | CORE | | + + + + + + | NRBC% | 0.0 | 0.0 - 0.3 % | [facility] | | | | | | LABORATORY | | | | | | SERVICES, | | | | | | CORE | | + + + + + + | NRBC# | 0.00 | 0.00 - 0.02 | [facility] | | | | | K/cu mm | LABORATORY | | | | | | SERVICES, | | | | | | CORE | | + + + + + + + + | Specimen | + + | Blood - Blood | | (substance) | + + + + + | Narrative | Performed At | + + + | New reference ranges for MCV, MCHC, PLT, IG% and IG# effective | [facility] | | 09/05/2017 | LABORATORY | | | NATALEE [place] | + + + + + + + + | Performing | Address | City/State/Zipcode | Phone Number | | Organization | | | | + + + + + | [facility] | [address] | [place] [address] | | | NATALEE WOR[place] | [address] | | | + + + + + ANTIBODY SCREEN (11/04/2017 5:11 PM PDT) + + + + + + | Component | Value | Ref Range | Performed | Pathologist | | | | | At | Signature | + + + + + + | Antibody | Negative | | [facility] | | | Screen | | | LABORATORY | | | | | | SERVICES, | | | | | | TRANSFUSION | | | | | | MEDICINE | | + + + + + + + + | Specimen | + + | Blood - Blood | | (substance) | + + + + + + + | Performing | Address | City/State/Zipcode | Phone Number | | Organization | | | | + + + + + | [facility] | [address] | [place] [address] | | | SERVICES, | [address] | | | | TRANSFUSION MEDICINE | | | | + + + + + ABO & RH TYPE (11/04/2017 5:11 PM PDT) + + + + + + | Component | Value | Ref Range | Performed | Pathologist | | | | | At | Signature | + + + + + + | ABO Group | O | | [facility] | | | | | | LABORATORY | | | | | | SERVICES, | | | | | | TRANSFUSION | | | | | | MEDICINE | | + + + + + + | Rh Type | Positive | | [facility] | | | | | | LABORATORY | | | | | | SERVICES, | | | | | | TRANSFUSION | | | | | | MEDICINE | | + + + + + + + + | Specimen | + + | Blood - Blood | | (substance) | + + + + + + + | Performing | Address | City/State/Zipcode | Phone Number | | Organization | | | | + + + + + | [facility] | [address] | [place] [address] | | | ELIN, | [address] | | | | TRANSFUSION MEDICINE | | | | + + + + + COAGULOPATHY PANEL (INR,APTT,FIBRINOGEN) (11/04/2017 5:11 PM PDT) + + + + + + | Component | Value | Ref Range | Performed | Pathologist | | | | | At | Signature | + + + + + + | INR | 0.98 | 0.90 - 1.20 INR | [facility] | | | | | | LABORATORY | | | | | | SERVICES, | | | | | | CORE | | + + + + + + | APTT | 29.4 | 26.0 - 36.0 | [facility] | | | | | seconds | LABORATORY | | | | | | SERVICES, | | | | | | CORE | | + + + + + + | FIBRINOGEN | 371Comment: New | 150 - 450 mg/dL | [facility] | | | LEVEL | Reference Ranges as of | | LABORATORY | | | | 09/02/2017. | | SERVICES, | | | | | | CORE | | + + + + + + + + | Specimen | + + | Blood - Blood | | (substance) | + + + + + | Narrative | Performed At | + + + | INR Therapeutic ranges for full anticoagulation: INR for | [facility] | | Venous Thromboembolism (2.0 - 3.0) INR INR for | LABORATORY | | most patients with mech. valves (2.5 - 3.5) INR APTT | SERVICES, CORE | | Therapeutic Range: (75 - 120) sec | | | Heparin levels of 0.35 - 0.7 U/mL | | + + + + + + + + | Performing | Address | City/State/Zipcode | Phone Number | | Organization | | | | + + + + + | [facility] | [address] | [place] [address] | | | SERVICES, CORE | [address] | | | + + + + + 12 LEAD ECG (11/04/2017 8:35 AM PDT) + + + + + + | Component | Value | Ref Range | Performed | Pathologist | | | | | At | Signature | + + + + + + | VENTRICULAR | 71 | bpm | [facility] | | | RATE | | | OF | | | | | | CARDIOLOGY | | + + + + + + | ATRIAL RATE | 73 | ms | [facility] | | | | | | OF | | | | | | CARDIOLOGY | | + + + + + + | P-R | 142 | ms | [facility] | | | INTERVAL | | | OF | | | | | | CARDIOLOGY | | + + + + + + | P AXIS | 64 | deg | [facility] | | | | | | OF | | | | | | CARDIOLOGY | | + + + + + + | QRS | 127 | ms | [facility] | | | DURATION | | | OF | | | | | | CARDIOLOGY | | + + + + + + | QT | 406 | ms | [facility] | | | | | | OF | | | | | | CARDIOLOGY | | + + + + + + | QTC-BAZETT | 442 | ms | [facility] | | | | | | OF | | | | | | CARDIOLOGY | | + + + + + + | R AXIS | 86 | deg | [facility] | | | | | | OF | | | | | | CARDIOLOGY | | + + + + + + | T AXIS | 43 | deg | [facility] | | | | | | OF | | | | | | CARDIOLOGY | | + + + + + + | ECG | Sinus rhythm | | [facility] | | | IMPRESSION | | | OF | | | | | | CARDIOLOGY | | + + + + + + | ECG | Right bundle branch | | [facility] | | | IMPRESSION | block | | OF | | | | | | CARDIOLOGY | | + + + + + + | ECG | Borderline ST elevation, | | [facility] | | | IMPRESSION | lateral leads- ABNORMAL | | OF | | | | ECG - | | CARDIOLOGY | | + + + + + + | ECG | Electronically signed | | [facility] | | | IMPRESSION | by: JULIO VIZCAINO | | OF | | | | 11-04-2017 14:31:31 | | CARDIOLOGY | | + + + + + + + + | Specimen | + + | | + + + + + | Narrative | Performed At | + + + | | | + + + + + + + + | Performing | Address | City/State/Zipcode | Phone Number | | Organization | | | | + + + + + | [facility] | [address] | [place], [place] | | | CARDIOLOGY | [address] | [phone] | | + + + + + CALCIUM, IONIZED, WHOLE BLOOD (11/04/2017 6:45 AM PDT) + +-------+ + + + | Component | Value | Ref Range | Performed | Pathologist | | | | | At | Signature | + +-------+ + + + | MAHOGANY ICA, | 1.22 | 1.14 - 1.32 | [facility] | | | WHOLE BLD | | mmol/L | LABORATORY | | | | | | SERVICES, | | | | | | CORE | | + +-------+ + + + | PH, WHOLE | 7.43 | | [facility] | | | BLOOD | | | LABORATORY | | | | | | SERVICES, | | | | | | CORE | | + +-------+ + + + | ICA, | 1.24 | 1.14 - 1.28 | [facility] | | | CORRECTED | | mmol/L | LABORATORY | | | TO PH 7.4 | | | SERVICES, | | | | | | CORE | | + +-------+ + + + + + | Specimen | + + | Blood - Blood | | (substance) | + + + + + + + | Performing | Address | City/State/Zipcode | Phone Number | | Organization | | | | + + + + + | [facility] | [address] | [place] [address] | | | SERVICES, CORE | [address] | | | + + + + + C-REACTIVE PROTEIN (11/04/2017 5:59 AM PDT) + +-------+ + + + | Component | Value | Ref Range | Performed | Pathologist | | | | | At | Signature | + +-------+ + + + | C-REACTIVE | <2.9 | <10.0 mg/L | [facility] | | | PROTEIN | | | LABORATORY | | | | | | SERVICES, | | | | | | CORE | | + +-------+ + + + + + | Specimen | + + | Blood - Blood | | (substance) | + + + + + | Narrative | Performed At | + + + | New method, new reference range and new reporting units as of | [facility] | | 09/30/2013. | LABORATORY | | | SERVICES, CORE | + + + + + + + + | Performing | Address | City/State/Zipcode | Phone Number | | Organization | | | | + + + + + | [facility] | [address] | [place] [address] | | | SERVICES, CORE | [address] | | | + + + + + PREALBUMIN (11/04/2017 5:59 AM PDT) + +-------+ + + + | Component | Value | Ref Range | Performed | Pathologist | | | | | At | Signature | + +-------+ + + + | PREALBUMIN | 25.6 | 17.0 - 42.0 | [facility] | | | | | mg/dL | [facility] | | | | | [place] | | + +-------+ + + + + + | Specimen | + + | Blood - Blood | | (substance) | + + + + + + + | Performing | Address | City/State/Zipcode | Phone Number | | Organization | | | | + + + + + | [facility] | [address] | [place] [address] | | | [place] | | | | + + + + + TRIGLYCERIDES, PLASMA (11/04/2017 5:59 AM PDT) + +-------+ + + + | Component | Value | Ref Range | Performed | Pathologist | | | | | At | Signature | + +-------+ + + + | TRIGLYCERID | 111 | <150 mg/dL | [facility] | | | ES | | | LABORATORY | | | | | | SERVICES, | | | | | | CORE | | + +-------+ + + + + + | Specimen | + + | Blood - Blood | | (substance) | + + + + + | Narrative | Performed At | + + + | Triglyceride Reference Range: Normal: <150 | [facility] | | mg/dL Borderline High: 150-199 mg/dL High: | LABORATORY | | 200-499 mg/dL Very High: >=500 mg/dL | [facility], CORE | + + + + + + + + | Performing | Address | City/State/Zipcode | Phone Number | | Organization | | | | + + + + + | [facility] | [address] | [place] [address] | | | SERVICES, [place] | [address] | | | + + + + + LIVER SET (AST,ALT,BILI TOTAL,BILI DIRECT,ALK PHOS,ALB,PROT TOTAL) (11/04/2017 5:59 AM PDT ) + +---------+ + + + | Component | Value | Ref Range | Performed | Pathologist | | | | | At | Signature | + +---------+ + + + | ALBUMIN, | 3.1 (L) | 3.5 - 4.7 g/dL | [facility] | | | PLASMA | | | LABORATORY | | | (LAB) | | | SERVICES, | | | | | | CORE | | + +---------+ + + + | BILIRUBIN | 0.3 | 0.3 - 1.2 mg/dL | [facility] | | | TOTAL | | | LABORATORY | | | | | | SERVICES, | | | | | | CORE | | + +---------+ + + + | BILIRUBIN | 0.1 | 0.0 - 0.3 mg/dL | [facility] | | | DIRECT | | | LABORATORY | | | | | | SERVICES, | | | | | | CORE | | + +---------+ + + + | ALK PHOS | 217 (H) | 53 - 128 U/L | [facility] | | | | | | LABORATORY | | | | | | SERVICES, | | | | | | CORE | | + +---------+ + + + | AST(SGOT) | 28 | <=41 U/L | [facility] | | | | | | LABORATORY | | | | | | SERVICES, | | | | | | CORE | | + +---------+ + + + | ALT (SGPT) | 40 | <=60 U/L | [facility] | | | | | | LABORATORY | | | | | | SERVICES, | | | | | | CORE | | + +---------+ + + + | TOTAL | 7.6 | 6.4 - 8.2 g/dL | [facility] | | | PROTEIN, | | | LABORATORY | | | PLASMA | | | SERVICES, | | | (LAB) | | | CORE | | + +---------+ + + + | AST CMNT | No Hemo | | [facility] | | | | | | LABORATORY | | | | | | SERVICES, | | | | | | CORE | | + +---------+ + + + | BILI T CMNT | No Hemo | | [facility] | | | | | | LABORATORY | | | | | | SERVICES, | | | | | | CORE | | + +---------+ + + + | BILI D CMNT | No Hemo | | [facility] | | | | | | LABORATORY | | | | | | SERVICES, | | | | | | CORE | | + +---------+ + + + + + | Specimen | + + | Blood - Blood | | (substance) | + + + + + + + | Performing | Address | City/State/Zipcode | Phone Number | | Organization | | | | + + + + + | [facility] | [address] | [place] [address] | | | SERVICES, CORE | [address] | | | + + + + + RENAL FUNCTION SET (NA,K,CL,CO2,BUN,CREAT,GLUC,CA,PHOS,ALB ) (11/04/2017 5:59 AM PDT) + + + + + + | Component | Value | Ref Range | Performed | Pathologist | | | | | At | Signature | + + + + + + | GLUCOSE, | 99 | 70 - 99 mg/dL | [facility] | | | PLASMA | | | LABORATORY | | | (LAB) | | | SERVICES, | | | | | | CORE | | + + + + + + | BUN, PLASMA | 14 | 6 - 20 mg/dL | [facility] | | | (LAB) | | | LABORATORY | | | | | | SERVICES, | | | | | | CORE | | + + + + + + | CREATININE | 0.48 (L) | 0.70 - 1.30 | [facility] | | | PLASMA | | mg/dL | LABORATORY | | | (LAB) | | | SERVICES, | | | | | | CORE | | + + + + + + | EGFR | >60 | >60 mL/min | [facility] | | | - | | | LABORATORY | | | SUDANESE | | | SERVICES, | | | | | | CORE | | + + + + + + | EGFR NON | >60 | >60 mL/min | [facility] | | | -KAYE | | | LABORATORY | | | RICAN | | | SERVICES, | | | | | | CORE | | + + + + + + | SODIUM, | 138 | 136 - 145 | [facility] | | | PLASMA | | mmol/L | LABORATORY | | | (LAB) | | | SERVICES, | | | | | | CORE | | + + + + + + | POTASSIUM, | 3.9 | 3.4 - 5.0 | [facility] | | | PLASMA | | mmol/L | LABORATORY | | | (LAB) | | | SERVICES, | | | | | | CORE | | + + + + + + | CHLORIDE, | 103 | 97 - 108 mmol/L | [facility] | | | PLASMA | | | LABORATORY | | | (LAB) | | | SERVICES, | | | | | | CORE | | + + + + + + | TOTAL CO2, | 30 | 21 - 32 mmol/L | [facility] | | | PLASMA | | | LABORATORY | | | (LAB) | | | SERVICES, | | | | | | CORE | | + + + + + + | CALCIUM, | 9.0 | 8.6 - 10.2 | [facility] | | | PLASMA | | mg/dL | LABORATORY | | | (LAB) | | | SERVICES, | | | | | | CORE | | + + + + + + | CALCIUM(ALB | 9.7 | 8.6 - 10.2 | [facility] | | | CORRECTED) | | mg/dL | LABORATORY | | | | | | SERVICES, | | | | | | CORE | | + + + + + + | ALBUMIN, | 3.1 (L) | 3.5 - 4.7 g/dL | [facility] | | | PLASMA | | | LABORATORY | | | (LAB) | | | SERVICES, | | | | | | CORE | | + + + + + + | PHOSPHORUS, | 4.2 | 2.4 - 4.7 mg/dL | [facility] | | | PLASMA | | | LABORATORY | | | (LAB) | | | SERVICES, | | | | | | CORE | | + + + + + + | POTASSIUM | No Hemo | | [facility] | | | CMNT | | | LABORATORY | | | | | | SERVICES, | | | | | | CORE | | + + + + + + | ANION GAP | 5 | 4 - 11 mmol/L | [facility] | | | | | | LABORATORY | | | | | | SERVICES, | | | | | | CORE | | + + + + + + | ANION | 7 | 4 - 11 mmol/L | [facility] | | | GAP(ALB | | | LABORATORY | | | CORRECTED) | | | SERVICES, | | | | | | CORE | | + + + + + + + + | Specimen | + + | Blood - Blood | | (substance) | + + + + + | Narrative | Performed At | + + + | GFR is estimated using the MDRD equation recommended by the | [facility] | | National Kidney Disease Education Program. Estimated GFR | LABORATORY | | Interpretive Information: <60 mL/min/1.73 sq m | [facility], NATALEE | | Chronic Kidney Disease <15 mL/min/1.73 sq m | | | Kidney Failure Estimated GFR greater that 60 mL/min/1.73 sq m is of | | | limited clinical value. The MDRD equation is not valid in the | | | following situations: - Patients under 18 years of age - Severe | | | malnutrition or obesity - Vegetarian diet - Rapidly changing kidney | | | function - Amputees, paraplegics, or other muscle-wasting diseses | | + + + + + + + + | Performing | Address | City/State/Zipcode | Phone Number | | Organization | | | | + + + + + | [facility] | [address] | [place] [address] | | | NATALEE [place] | [address] | | | + + + + + MAGNESIUM, PLASMA (11/04/2017 5:59 AM PDT) + +-------+ + + + | Component | Value | Ref Range | Performed | Pathologist | | | | | At | Signature | + +-------+ + + + | MAGNESIUM,P | 2.1 | 1.6 - 2.6 mg/dL | [facility] | | | LASMA | | | LABORATORY | | | | | | SERVICES, | | | | | | CORE | | + +-------+ + + + + + | Specimen | + + | Blood - Blood | | (substance) | + + + + + | Narrative | Performed At | + + + | Reference range change effective 12/11/16. | [facility] | | | LABORATORY | | | [address] | + + + + + + + + | Performing | Address | City/State/Zipcode | Phone Number | | Organization | | | | + + + + + | [facility] | [address] | [place] [address] | | | ELIN, NATALEE | [address] | | | + + + + + MAGNESIUM, PLASMA (11/03/2017 4:39 AM PDT) + +-------+ + + + | Component | Value | Ref Range | Performed | Pathologist | | | | | At | Signature | + +-------+ + + + | MAGNESIUM,P | 2.0 | 1.6 - 2.6 mg/dL | [facility] | | | LASMA | | | LABORATORY | | | | | | SERVICES, | | | | | | CORE | | + +-------+ + + + + + | Specimen | + + | Blood - Blood | | (substance) | + + + + + | Narrative | Performed At | + + + | Reference range change effective 12/11/16. | [facility] | | | LABORATORY | | | SERVICES, CORE | + + + + + + + + | Performing | Address | City/State/Zipcode | Phone Number | | Organization | | | | + + + + + | [facility] | [address] | [place] [address] | | | SERVICES, CORE | [address] | | | + + + + + RENAL FUNCTION SET (NA,K,CL,CO2,BUN,CREAT,GLUC,CA,PHOS,ALB ) (11/03/2017 4:39 AM PDT) + + + + + + | Component | Value | Ref Range | Performed | Pathologist | | | | | At | Signature | + + + + + + | GLUCOSE, | 114 (H) | 70 - 99 mg/dL | [facility] | | | PLASMA | | | LABORATORY | | | (LAB) | | | SERVICES, | | | | | | CORE | | + + + + + + | BUN, PLASMA | 16 | 6 - 20 mg/dL | [facility] | | | (LAB) | | | LABORATORY | | | | | | SERVICES, | | | | | | CORE | | + + + + + + | CREATININE | 0.47 (L) | 0.70 - 1.30 | [facility] | | | PLASMA | | mg/dL | LABORATORY | | | (LAB) | | | SERVICES, | | | | | | CORE | | + + + + + + | EGFR | >60 | >60 mL/min | [facility] | | | - | | | LABORATORY | | | SUDANESE | | | SERVICES, | | | | | | CORE | | + + + + + + | EGFR NON | >60 | >60 mL/min | [facility] | | | -KAYE | | | LABORATORY | | | RICAN | | | SERVICES, | | | | | | CORE | | + + + + + + | SODIUM, | 140 | 136 - 145 | [facility] | | | PLASMA | | mmol/L | LABORATORY | | | (LAB) | | | SERVICES, | | | | | | CORE | | + + + + + + | POTASSIUM, | 3.9 | 3.4 - 5.0 | [facility] | | | PLASMA | | mmol/L | LABORATORY | | | (LAB) | | | SERVICES, | | | | | | CORE | | + + + + + + | CHLORIDE, | 103 | 97 - 108 mmol/L | [facility] | | | PLASMA | | | LABORATORY | | | (LAB) | | | SERVICES, | | | | | | CORE | | + + + + + + | TOTAL CO2, | 30 | 21 - 32 mmol/L | [facility] | | | PLASMA | | | LABORATORY | | | (LAB) | | | SERVICES, | | | | | | CORE | | + + + + + + | CALCIUM, | 8.8 | 8.6 - 10.2 | [facility] | | | PLASMA | | mg/dL | LABORATORY | | | (LAB) | | | SERVICES, | | | | | | CORE | | + + + + + + | CALCIUM(ALB | 9.6 | 8.6 - 10.2 | [facility] | | | CORRECTED) | | mg/dL | LABORATORY | | | | | | SERVICES, | | | | | | CORE | | + + + + + + | ALBUMIN, | 3.0 (L) | 3.5 - 4.7 g/dL | [facility] | | | PLASMA | | | LABORATORY | | | (LAB) | | | SERVICES, | | | | | | CORE | | + + + + + + | PHOSPHORUS, | 4.1 | 2.4 - 4.7 mg/dL | [facility] | | | PLASMA | | | LABORATORY | | | (LAB) | | | SERVICES, | | | | | | CORE | | + + + + + + | POTASSIUM | No Hemo | | [facility] | | | CMNT | | | LABORATORY | | | | | | SERVICES, | | | | | | CORE | | + + + + + + | ANION GAP | 7 | 4 - 11 mmol/L | [facility] | | | | | | LABORATORY | | | | | | SERVICES, | | | | | | CORE | | + + + + + + | ANION | 9 | 4 - 11 mmol/L | [facility] | | | GAP(ALB | | | LABORATORY | | | CORRECTED) | | | SERVICES, | | | | | | CORE | | + + + + + + + + | Specimen | + + | Blood - Blood | | (substance) | + + + + + | Narrative | Performed At | + + + | GFR is estimated using the MDRD equation recommended by the | [facility] | | National Kidney Disease Education Program. Estimated GFR | LABORATORY | | Interpretive Information: <60 mL/min/1.73 sq m | SERVICES, CORE | | Chronic Kidney Disease <15 mL/min/1.73 sq m | | | Kidney Failure Estimated GFR greater that 60 mL/min/1.73 sq m is of | | | limited clinical value. The MDRD equation is not valid in the | | | following situations: - Patients under 18 years of age - Severe | | | malnutrition or obesity - Vegetarian diet - Rapidly changing kidney | | | function - Amputees, paraplegics, or other muscle-wasting diseses | | + + + + + + + + | Performing | Address | City/State/Zipcode | Phone Number | | Organization | | | | + + + + + | [facility] | [id number] | [place] [address] | | | SERVICES, [place] | [address] | | | + + + + + MAGNESIUM, PLASMA (11/02/2017 6:14 AM PDT) + +-------+ + + + | Component | Value | Ref Range | Performed | Pathologist | | | | | At | Signature | + +-------+ + + + |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 [address] | | | + + + + + VASC LAB VENOUS DUPLEX LOWER EXTREMITY BILAT COMP (10/29/2017 8:56 AM PDT) + + | Specimen | + + | | + + + + + | Narrative | Performed At | + + + | Bilateral: The duplex scanner was used to examine the deep and | [facility] | | superficial veins of the right and left lower extremities. The | RADIOLOGY VASC | | veins are patent bilaterally with normal flow and responses to | [facility] | | augmentation and compression maneuvers and no thrombus is noted. | | | Conclusions: A normal venous examination of the bilateral lower | | | extremities. No venous thrombosis was detected. I have | | | personally reviewed the images and, if necessary, edited the report. | | | I agree with the report as now presented. | | + + + + + | Procedure Note | + + | Service Account, [employer] - 10/29/2017 12:13 PM PDT Bilateral: The | | duplex scanner was used to examine the deep and superficial veins of the right and left | | lower extremities. The veins are patent bilaterally with normal flow and responses to | | augmentation and compression maneuvers and no thrombus is noted.Conclusions: A normal | | venous examination of the bilateral lower extremities. No venous thrombosis was | | detected.I have personally reviewed the images and, if necessary, edited the report. I | | agree with the report as now presented. | | | | | |I have personally reviewed the images and, if necessary, edited the report. I agree with t he report as now presented. | + + + +---------+ + + | Performing | Address | City/State/Zipcode | Phone Number | | Organization | | | | + +---------+ + + | [facility] | | | | | VASC US | | | | + +---------+ + + CAPILLARY BLOOD GLUCOSE (NO CHG), POC (10/29/2017 6:30 AM PDT) + +---------+ + + + | Component | Value | Ref Range | Performed | Pathologist | | | | | At | Signature | + +---------+ + + + | BLOOD | 110 (H) | 70 - 99 mg/dL | [facility] - | | | GLUCOSE, | | | [facility] | | | POC | | | [facility] | | | | | | OF CARE | | | | | | TESTS | | + +---------+ + + + + + | Specimen | + + | | + + + + + + + | Performing | Address | City/State/Zipcode | Phone Number | | Organization | | | | + + + + + | [facility] | [address] | [place], [place] | | | [facility] | [address] | [address] | | | TESTS | | | | + + + + + MAGNESIUM, PLASMA (10/29/2017 6:19 AM PDT) + +-------+ + + + | Component | Value | Ref Range | Performed | Pathologist | | | | | At | Signature | + +-------+ + + + | MAGNESIUM,P | 1.9 | 1.6 - 2.6 mg/dL | [facility] | | | LASMA | | | LABORATORY | | | | | | SERVICES, | | | | | | CORE | | + +-------+ + + + + + | Specimen | + + | Blood - Blood | | (substance) | + + + + + | Narrative | Performed At | + + + | Reference range change effective 12/11/16. | [facility] | | | LABORATORY | | | SERVICES, CORE | + + + + + + + + | Performing | Address | City/State/Zipcode | Phone Number | | Organization | | | | + + + + + | [facility] | [address] | [place] [address] | | | SERVICES, CORE | [address] | | | + + + + + RENAL FUNCTION SET (NA,K,CL,CO2,BUN,CREAT,GLUC,CA,PHOS,ALB ) (10/29/2017 6:19 AM PDT) + + + + + + | Component | Value | Ref Range | Performed | Pathologist | | | | | At | Signature | + + + + + + | GLUCOSE, | 109 (H) | 70 - 99 mg/dL | [facility] | | | PLASMA | | | LABORATORY | | | (LAB) | | | ELIN, | | | | | | CORE | | + + + + + + | BUN, PLASMA | 14 | 6 - 20 mg/dL | [facility] | | | (LAB) | | | LABORATORY | | | | | | SERVICES, | | | | | | CORE | | + + + + + + | CREATININE | 0.45 (L) | 0.70 - 1.30 | [facility] | | | PLASMA | | mg/dL | LABORATORY | | | (LAB) | | | SERVICES, | | | | | | CORE | | + + + + + + | EGFR | >60 | >60 mL/min | [facility] | | | - | | | LABORATORY | | | SUDANESE | | | SERVICES, | | | | | | CORE | | + + + + + + | EGFR NON | >60 | >60 mL/min | [facility] | | | -KAYE | | | LABORATORY | | | RICAN | | | SERVICES, | | | | | | CORE | | + + + + + + | SODIUM, | 142 | 136 - 145 | [facility] | | | PLASMA | | mmol/L | LABORATORY | | | (LAB) | | | SERVICES, | | | | | | CORE | | + + + + + + | POTASSIUM, | 4.1 | 3.4 - 5.0 | [facility] | | | PLASMA | | mmol/L | LABORATORY | | | (LAB) | | | SERVICES, | | | | | | CORE | | + + + + + + | CHLORIDE, | 108 | 97 - 108 mmol/L | [facility] | | | PLASMA | | | LABORATORY | | | (LAB) | | | SERVICES, | | | | | | CORE | | + + + + + + | TOTAL CO2, | 27 | 21 - 32 mmol/L | [facility] | | | PLASMA | | | LABORATORY | | | (LAB) | | | SERVICES, | | | | | | CORE | | + + + + + + | CALCIUM, | 8.8 | 8.6 - 10.2 | [facility] | | | PLASMA | | mg/dL | LABORATORY | | | (LAB) | | | SERVICES, | | | | | | CORE | | + + + + + + | CALCIUM(ALB | 9.8 | 8.6 - 10.2 | [facility] | | | CORRECTED) | | mg/dL | LABORATORY | | | | | | SERVICES, | | | | | | CORE | | + + + + + + | ALBUMIN, | 2.8 (L) | 3.5 - 4.7 g/dL | [facility] | | | PLASMA | | | LABORATORY | | | (LAB) | | | SERVICES, | | | | | | CORE | | + + + + + + | PHOSPHORUS, | 4.1 | 2.4 - 4.7 mg/dL | [facility] | | | PLASMA | | | LABORATORY | | | (LAB) | | | SERVICES, | | | | | | CORE | | + + + + + + | POTASSIUM | No Hemo | | [facility] | | | CMNT | | | LABORATORY | | | | | | SERVICES, | | | | | | CORE | | + + + + + + | ANION GAP | 7 | 4 - 11 mmol/L | [facility] | | | | | | LABORATORY | | | | | | SERVICES, | | | | | | CORE | | + + + + + + | ANION | 10 | 4 - 11 mmol/L | [facility] | | | GAP(ALB | | | LABORATORY | | | CORRECTED) | | | SERVICES, | | | | | | CORE | | + + + + + + + + | Specimen | + + | Blood - Blood | | (substance) | + + + + + | Narrative | Performed At | + + + | GFR is estimated using the MDRD equation recommended by the | [facility] | | National Kidney Disease Education Program. Estimated GFR | LABORATORY | | Interpretive Information: <60 mL/min/1.73 sq m | SERVICES, CORE | | Chronic Kidney Disease <15 mL/min/1.73 sq m | | | Kidney Failure Estimated GFR greater that 60 mL/min/1.73 sq m is of | | | limited clinical value. The MDRD equation is not valid in the | | | following situations: - Patients under 18 years of age - Severe | | | malnutrition or obesity - Vegetarian diet - Rapidly changing kidney | | | function - Amputees, paraplegics, or other muscle-wasting diseses | | + + + + + + + + | Performing | Address | City/State/Zipcode | Phone Number | | Organization | | | | + + + + + | [facility] | [address] | [place] [address] | | | [facility] | [address] | | | + + + + + CAPILLARY BLOOD GLUCOSE (NO CHG), POC (10/29/2017 12:43 AM PDT) + +---------+ + + + | Component | Value | Ref Range | Performed | Pathologist | | | | | At | Signature | + +---------+ + + + | BLOOD | 120 (H) | 70 - 99 mg/dL | [facility] | | | GLUCOSE, | | | [facility] | | | POC | | | [facility] | | | | | | OF CARE | | | | | | TESTS | | + +---------+ + + + + + | Specimen | + + | | + + + + + + + | Performing | Address | City/State/Zipcode | Phone Number | | Organization | | | | + + + + + | [facility] | [address] | [place], [place] | | | [facility] | [address] | [address] | | | TESTS | | | | + + + + + 12 LEAD ECG (10/28/2017 2:18 PM PDT) + + + + + + | Component | Value | Ref Range | Performed | Pathologist | | | | | At | Signature | + + + + + + | VENTRICULAR | 74 | bpm | [facility] | | | RATE | | | OF | | | | | | CARDIOLOGY | | + + + + + + | ATRIAL RATE | 74 | ms | [facility] | | | | | | OF | | | | | | CARDIOLOGY | | + + + + + + | P-R | 126 | ms | [facility] | | | INTERVAL | | | OF | | | | | | CARDIOLOGY | | + + + + + + | P AXIS | 75 | deg | [facility] | | | | | | OF | | | | | | CARDIOLOGY | | + + + + + + | QRS | 128 | ms | [facility] | | | DURATION | | | OF | | | | | | CARDIOLOGY | | + + + + + + | QT | 417 | ms | [facility] | | | | | | OF | | | | | | CARDIOLOGY | | + + + + + + | QTC-BAZETT | 463 | ms | [facility] | | | | | | OF | | | | | | CARDIOLOGY | | + + + + + + | R AXIS | 72 | deg | [facility] | | | | | | OF | | | | | | CARDIOLOGY | | + + + + + + | T AXIS | 35 | deg | [facility] | | | | | | OF | | | | | | CARDIOLOGY | | + + + + + + | ECG | Sinus rhythm | | [facility] | | | IMPRESSION | | | OF | | | | | | CARDIOLOGY | | + + + + + + | ECG | Right bundle branch | | [facility] | | | IMPRESSION | block | | OF | | | | | | CARDIOLOGY | | + + + + + + | ECG | Borderline ST elevation, | | [facility] | | | IMPRESSION | lateral leads- ABNORMAL | | OF | | | | ECG - | | CARDIOLOGY | | + + + + + + | ECG | Electronically signed | | [facility] | | | IMPRESSION | by: AJAY DE LOS SANTOS | | OF | | | | 10-29-2017 21:24:36 | | CARDIOLOGY | | + + + + + + + + | Specimen | + + | | + + + + + | Narrative | Performed At | + + + | | | + + + + + + + + | Performing | Address | City/State/Zipcode | Phone Number | | Organization | | | | + + + + + | [facility] | [address] | [place], [place] | | | CARDIOLOGY | [address] | [address] | | + + + + + CAPILLARY BLOOD GLUCOSE (NO CHG), POC (10/28/2017 12:00 PM PDT) + +---------+ + + + | Component | Value | Ref Range | Performed | Pathologist | | | | | At | Signature | + +---------+ + + + | BLOOD | 141 (H) | 70 - 99 mg/dL | [facility] | | | GLUCOSE, | | | [facility] | | | POC | | | [facility] | | | | | | OF CARE | | | | | | TESTS | | + +---------+ + + + + + | Specimen | + + | | + + + + + + + | Performing | Address | City/State/Zipcode | Phone Number | | Organization | | | | + + + + + | [facility] | [address] | [place], [place] | | | [facility] | [address] | [address] | | | TESTS | | | | + + + + + CAPILLARY BLOOD GLUCOSE (NO CHG), POC (10/28/2017 6:43 AM PDT) + +---------+ + + + | Component | Value | Ref Range | Performed | Pathologist | | | | | At | Signature | + +---------+ + + + | BLOOD | 127 (H) | 70 - 99 mg/dL | [facility] | | | GLUCOSE, | | | [facility] | | | POC | | | [facility] | | | | | | OF CARE | | | | | | TESTS | | + +---------+ + + + + + | Specimen | + + | | + + + + + + + | Performing | Address | City/State/Zipcode | Phone Number | | Organization | | | | + + + + + | [facility] | [address] | [place], [place] | | | [facility] | [address] | [address] | | | TESTS | | | | + + + + + C-REACTIVE PROTEIN (10/28/2017 5:29 AM PDT) + + + + + + | Component | Value | Ref Range | Performed | Pathologist | | | | | At | Signature | + + + + + + | C-REACTIVE | 17.9 (H) | <10.0 mg/L | [facility] | | | PROTEIN | | | LABORATORY | | | | | | SERVICES, | | | | | | CORE | | + + + + + + + + | Specimen | + + | Blood - Blood | | (substance) | + + + + + | Narrative | Performed At | + + + | New method, new reference range and new reporting units as of | [facility] | | 09/30/2013. | LABORATORY | | | SERVICES, CORE | + + + + + + + + | Performing | Address | City/State/Zipcode | Phone Number | | Organization | | | | + + + + + | [id number] | [address] | [place] [address] | | | SERVICES, CORE | [address] | | | + + + + + PREALBUMIN (10/28/2017 5:29 AM PDT) + + + + + + | Component | Value | Ref Range | Performed | Pathologist | | | | | At | Signature | + + + + + + | PREALBUMIN | 16.5 (L) | 17.0 - 42.0 | [facility] | | | | | mg/dL | [facility] | | | | | | [place] | | + + + + + + + + | Specimen | + + | Blood - Blood | | (substance) | + + + + + + + | Performing | Address | City/State/Zipcode | Phone Number | | Organization | | | | + + + + + | [facility] | [address] | [place] [address] | | | [place] | | | | + + + + + TRIGLYCERIDES, PLASMA (10/28/2017 5:29 AM PDT) + +-------+ + + + | Component | Value | Ref Range | Performed | Pathologist | | | | | At | Signature | + +-------+ + + + | TRIGLYCERID | 117 | <150 mg/dL | [facility] | | | ES | | | LABORATORY | | | | | | SERVICES, | | | | | | CORE | | + +-------+ + + + + + | Specimen | + + | Blood - Blood | | (substance) | + + + + + | Narrative | Performed At | + + + | Triglyceride Reference Range: Normal: <150 | [facility] | | mg/dL Borderline High: 150-199 mg/dL High: | LABORATORY | | 200-499 mg/dL Very High: >=500 mg/dL | [facility] | + + + + + + + + | Performing | Address | City/State/Zipcode | Phone Number | | Organization | | | | + + + + + | [facility] | [address] | [place] [address] | | | [facility] [place] | [address] | | | + + + + + CALCIUM, IONIZED, WHOLE BLOOD (10/28/2017 5:29 AM PDT) + +-------+ + + + | Component | Value | Ref Range | Performed | Pathologist | | | | | At | Signature | + +-------+ + + + | MAHOGANY ICA, | 1.24 | 1.14 - 1.32 | [facility] | | | WHOLE BLD | | mmol/L | LABORATORY | | | | | | SERVICES, | | | | | | CORE | | + +-------+ + + + | PH, WHOLE | 7.39 | | [facility] | | | BLOOD | | | LABORATORY | | | | | | SERVICES, | | | | | | CORE | | + +-------+ + + + | ICA, | 1.23 | 1.14 - 1.28 | [facility] | | | CORRECTED | | mmol/L | LABORATORY | | | TO PH 7.4 | | | SERVICES, | | | | | | CORE | | + +-------+ + + + + + | Specimen | + + | Blood - Blood | | (substance) | + + + + + + + | Performing | Address | City/State/Zipcode | Phone Number | | Organization | | | | + + + + + | [facility] | [address] | [place] [address] | | | SERVICES, CORE | [address] | | | + + + + + LIVER SET (AST,ALT,BILI TOTAL,BILI DIRECT,ALK PHOS,ALB,PROT TOTAL) (10/28/2017 5:29 AM PDT ) + +---------+ + + + | Component | Value | Ref Range | Performed | Pathologist | | | | | At | Signature | + +---------+ + + + | ALBUMIN, | 3.0 (L) | 3.5 - 4.7 g/dL | [facility] | | | PLASMA | | | LABORATORY | | | (LAB) | | | SERVICES, | | | | | | CORE | | + +---------+ + + + | BILIRUBIN | 0.4 | 0.3 - 1.2 mg/dL | [facility] | | | TOTAL | | | LABORATORY | | | | | | SERVICES, | | | | | | CORE | | + +---------+ + + + | BILIRUBIN | 0.1 | 0.0 - 0.3 mg/dL | [facility] | | | DIRECT | | | LABORATORY | | | | | | SERVICES, | | | | | | CORE | | + +---------+ + + + | ALK PHOS | 211 (H) | 56 - 119 U/L | [facility] | | | | | | LABORATORY | | | | | | SERVICES, | | | | | | CORE | | + +---------+ + + + | AST(SGOT) | 20 | <=41 U/L | [facility] | | | | | | LABORATORY | | | | | | SERVICES, | | | | | | CORE | | + +---------+ + + + | ALT (SGPT) | 21 | <=60 U/L | [facility] | | | | | | LABORATORY | | | | | | SERVICES, | | | | | | CORE | | + +---------+ + + + | TOTAL | 7.7 | 6.4 - 8.2 g/dL | [facility] | | | PROTEIN, | | | LABORATORY | | | PLASMA | | | SERVICES, | | | (LAB) | | | CORE | | + +---------+ + + + | AST CMNT | No Hemo | | [facility] | | | | | | LABORATORY | | | | | | SERVICES, | | | | | | CORE | | + +---------+ + + + | VIRGENI T CMNT | No Hemo | | [facility] | | | | | | LABORATORY | | | | | | SERVICES, | | | | | | CORE | | + +---------+ + + + | BILI D CMNT | No Hemo | | [facility] | | | | | | LABORATORY | | | | | | SERVICES, | | | | | | CORE | | + +---------+ + + + + + | Specimen | + + | Blood - Blood | | (substance) | + + + + + + + | Performing | Address | City/State/Zipcode | Phone Number | | Organization | | | | + + + + + | [facility] | [address] | [place] [address] | | | SERVICES, CORE | [address] | | | + + + + + RENAL FUNCTION SET (NA,K,CL,CO2,BUN,CREAT,GLUC,CA,PHOS,ALB ) (10/28/2017 5:29 AM PDT) + + + + + + | Component | Value | Ref Range | Performed | Pathologist | | | | | At | Signature | + + + + + + | GLUCOSE, | 87 | 70 - 99 mg/dL | [facility] | | | PLASMA | | | LABORATORY | | | (LAB) | | | SERVICES, | | | | | | CORE | | + + + + + + | BUN, PLASMA | 10 | 6 - 20 mg/dL | [facility] | | | (LAB) | | | LABORATORY | | | | | | SERVICES, | | | | | | CORE | | + + + + + + | CREATININE | 0.50 (L) | 0.70 - 1.30 | [facility] | | | PLASMA | | mg/dL | LABORATORY | | | (LAB) | | | SERVICES, | | | | | | CORE | | + + + + + + | EGFR | >60 | >60 mL/min | [facility] | | | - | | | LABORATORY | | | SUDANESE | | | SERVICES, | | | | | | CORE | | + + + + + + | EGFR NON | >60 | >60 mL/min | [facility] | | | -KAYE | | | LABORATORY | | | RICAN | | | SERVICES, | | | | | | CORE | | + + + + + + | SODIUM, | 141 | 136 - 145 | [facility] | | | PLASMA | | mmol/L | LABORATORY | | | (LAB) | | | SERVICES, | | | | | | CORE | | + + + + + + | POTASSIUM, | 4.0 | 3.4 - 5.0 | [facility] | | | PLASMA | | mmol/L | LABORATORY | | | (LAB) | | | SERVICES, | | | | | | CORE | | + + + + + + | CHLORIDE, | 108 | 97 - 108 mmol/L | [facility] | | | PLASMA | | | LABORATORY | | | (LAB) | | | SERVICES, | | | | | | CORE | | + + + + + + | TOTAL CO2, | 26 | 21 - 32 mmol/L | [facility] | | | PLASMA | | | LABORATORY | | | (LAB) | | | SERVICES, | | | | | | CORE | | + + + + + + | CALCIUM, | 9.2 | 8.6 - 10.2 | [facility] | | | PLASMA | | mg/dL | LABORATORY | | | (LAB) | | | SERVICES, | | | | | | CORE | | + + + + + + | CALCIUM(ALB | 10.0 | 8.6 - 10.2 | [facility] | | | CORRECTED) | | mg/dL | LABORATORY | | | | | | SERVICES, | | | | | | CORE | | + + + + + + | ALBUMIN, | 3.0 (L) | 3.5 - 4.7 g/dL | [facility] | | | PLASMA | | | LABORATORY | | | (LAB) | | | SERVICES, | | | | | | CORE | | + + + + + + | PHOSPHORUS, | 3.6 | 2.4 - 4.7 mg/dL | [facility] | | | PLASMA | | | LABORATORY | | | (LAB) | | | SERVICES, | | | | | | CORE | | + + + + + + | POTASSIUM | No Hemo | | [facility] | | | CMNT | | | LABORATORY | | | | | | SERVICES, | | | | | | CORE | | + + + + + + | ANION GAP | 7 | 4 - 11 mmol/L | [facility] | | | | | | LABORATORY | | | | | | SERVICES, | | | | | | CORE | | + + + + + + | ANION | 9 | 4 - 11 mmol/L | [facility] | | | GAP(ALB | | | LABORATORY | | | CORRECTED) | | | SERVICES, | | | | | | CORE | | + + + + + + + + | Specimen | + + | Blood - Blood | | (substance) | + + + + + | Narrative | Performed At | + + + | GFR is estimated using the MDRD equation recommended by the | [facility] | | National Kidney Disease Education Program. Estimated GFR | LABORATORY | | Interpretive Information: <60 mL/min/1.73 sq m | SERVICES, CORE | | Chronic Kidney Disease <15 mL/min/1.73 sq m | | | Kidney Failure Estimated GFR greater that 60 mL/min/1.73 sq m is of | | | limited clinical value. The MDRD equation is not valid in the | | | following situations: - Patients under 18 years of age - Severe | | | malnutrition or obesity - Vegetarian diet - Rapidly changing kidney | | | function - Amputees, paraplegics, or other muscle-wasting diseses | | + + + + + + + + | Performing | Address | City/State/Zipcode | Phone Number | | Organization | | | | + + + + + | [facility] | [address] | [place] [address] | | | SERVICES, NATALEE | [address] | | | + + + + + MAGNESIUM, PLASMA (10/28/2017 5:29 AM PDT) + +-------+ + + + | Component | Value | Ref Range | Performed | Pathologist | | | | | At | Signature | + +-------+ + + + | MAGNESIUM,P | 1.8 | 1.6 - 2.6 mg/dL | [facility] | | | LASMA | | | LABORATORY | | | | | | SERVICES, | | | | | | CORE | | + +-------+ + + + + + | Specimen | + + | Blood - Blood | | (substance) | + + + + + | Narrative | Performed At | + + + | Reference range change effective 12/11/16. | [facility] | | | LABORATORY | | | SERVICES, CORE | + + + + + + + + | Performing | Address | City/State/Zipcode | Phone Number | | Organization | | | | + + + + + | [facility] | [address] | [place] [address] | | | SERVICES, CORE | [address] | | | + + + + + CAPILLARY BLOOD GLUCOSE (NO CHG), CITL[place]Y (10/28/2017 12:34 AM PDT) + +---------+ + + + | Component | Value | Ref Range | Performed | Pathologist | | | | | At | Signature | + +---------+ + + + | BLOOD | 133 (H) | 70 - 99 mg/dL | [facility] - | | | GLUCOSE, | | | [facility] | | | POC | | | [facility] | | | | | | OF CARE | | | | | | TESTS | | + +---------+ + + + + + | Specimen | + + | | + + + + + + + | Performing | Address | City/State/Zipcode | Phone Number | | Organization | | | | + + + + + | [facility] | [address] | [place], [place] | | | [facility] | [address] | [address] | | | TESTS | | | | + + + + + CAPILLARY BLOOD GLUCOSE (NO CHG), POC (10/27/2017 6:48 PM PDT) + +---------+ + + + | Component | Value | Ref Range | Performed | Pathologist | | | | | At | Signature | + +---------+ + + + | BLOOD | 128 (H) | 70 - 99 mg/dL | [facility] - | | | GLUCOSE, | | | [facility] | | | POC | | | [facility] | | | | | | OF CARE | | | | | | TESTS | | + +---------+ + + + + + | Specimen | + + | | + + + + + + + | Performing | Address | City/State/Zipcode | Phone Number | | Organization | | | | + + + + + | [facility] | [address] | [place], [place] | | | [facility] | [address] | [phone] | | | TESTS | | | | + + + + + CT ABDOMEN AND PELVIS WO IV CONTRAST (10/27/2017 5:38 PM PDT) + + | Specimen | + + | | + + + + + | Narrative | Performed At | + + + | EXAM: CT of the abdomen and pelvis WITHOUT intravenous contrast. | [facility] | | HISTORY: Evaluate PEG tube in stomach COMPARISON: 10/22/2017 | RADIOLOGY VOICE | | TECHNIQUE: CT of the abdomen and pelvis without intravenous | RECOGNITION 2 | | contrast. Coronal and sagittal reformats were generated and reviewed. | | | FINDINGS: Lack of intravenous contrast decreases sensitivity | | | for detection of vascular and parenchymal pathology. LOWER THORAX: | | | PICC line terminates in the right atrium. LIVER: Unremarkable. | | | BILIARY: Gallstone in the gallbladder. Gallbladder is contracted. | | | PANCREAS: Unremarkable. SPLEEN: Unremarkable. ADRENALS: | | | Unremarkable. KIDNEYS/URETERS: Nonobstructing 4 mm calyceal stone in | | | the upper pole of the right kidney. Otherwise, unremarkable. PELVIC | | | ORGANS/BLADDER: Unremarkable. GI TRACT AND PERITONEUM: | | | Percutaneous gastrostomy tube terminates in the gastric body. The | | | stomach is not cinched to the anterior abdominal wall in this region. | | | Previous gastrostomy tube has been removed. No new extravasated oral | | | contrast is seen. Small amount of previously extravasated contrast in | | | the anterior abdomen. Omental stranding in the upper abdomen adjacent | | | to the gastric body and antrum. No fluid collection. Tiny bubble of | | | air in the left anterior abdomen (image 49), which may be | | | preperitoneal or intraperitoneal. A left upper quadrant approach drain | | | terminates in the right subhepatic region. LYMPH NODES: No | | | lymphadenopathy. VESSELS: Unremarkable. BONES AND SOFT TISSUES: | | | Midline supraumbilical laparotomy incision with skin fernandez. Mild | | | postoperative stranding in the anterior abdominal wall. Subacute, | | | comminuted left superior and inferior pubic rami fractures with | | | surrounding callus. Subacute, comminuted left sacral ala and left | | | posterior iliac fractures. Chronic appearing left anterior iliac | | | fracture. Subacute fracture of the T12 vertebral body with stable | | | anterior wedging deformity. Degenerative changes in the spine. 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 | | | IMPRESSION: Since 10/22/2017, interval removal of prior | | | percutaneous gastrostomy tube and placement of a new gastrostomy tube, | | | which terminates in the gastric body. The stomach is not cinched to | | | the anterior abdominal wall in the region of the tube. No extravasated | | | contrast or loculated fluid collection seen. Tiny bubble of gas in | | | the preperitoneal space or peritoneal cavity, which may be | | | postprocedural in nature. I have personally reviewed the images | | | and, if necessary, edited the report. I agree with the report as now | | | presented. Final signature: Pham Webb MD 10/28/2017 | | | 9:20 AM Preliminary: Pham Webb MD Dictation | | | initiated: Pham Webb MD 10/28/2017 8:42 AM | | + + + + + | Procedure Note | + + | Service Account, Hickies Res In Interface - 10/28/2017 9:21 AM PDT EXAM: CT of the | | abdomen and pelvis WITHOUT intravenous contrast. HISTORY: Evaluate PEG tube in stomach | | COMPARISON: 10/22/2017 TECHNIQUE: CT of the abdomen and pelvis without intravenous | | contrast. Coronal and sagittal reformats were generated and reviewed. FINDINGS: Lack of | | intravenous contrast decreases sensitivity for detection of vascular and parenchymal | | pathology. LOWER THORAX: PICC line terminates in the right atrium. LIVER: | | Unremarkable.BILIARY: Gallstone in the gallbladder. Gallbladder is contracted.PANCREAS: | | Unremarkable. SPLEEN: Unremarkable.ADRENALS: Unremarkable.KIDNEYS/URETERS: | | Nonobstructing 4 mm calyceal stone in the upper pole of the right kidney. Otherwise, | | unremarkable.PELVIC ORGANS/BLADDER: Unremarkable. GI TRACT AND PERITONEUM: Percutaneous | | gastrostomy tube terminates in the gastric body. The stomach is not cinched to the | | anterior abdominal wall in this region. Previous gastrostomy tube has been removed. No | | new extravasated oral contrast is seen. Small amount of previously extravasated contrast | | in the anterior abdomen. Omental stranding in the upper abdomen adjacent to the gastric | | body and antrum. No fluid collection. Tiny bubble of air in the left anterior abdomen | | (image 49), which may be preperitoneal or intraperitoneal. A left upper quadrant | | approach drain terminates in the right subhepatic region. LYMPH NODES: No | | lymphadenopathy.VESSELS: Unremarkable. BONES AND SOFT TISSUES: Midline supraumbilical | | laparotomy incision with skin fernandez. Mild postoperative stranding in the anterior | | abdominal wall. Subacute, comminuted left superior and inferior pubic rami fractures | | with surrounding callus. Subacute, comminuted left sacral ala and left posterior iliac | | fractures. Chronic appearing left anterior iliac fracture. Subacute fracture of the T12 | | vertebral body with stable anterior wedging deformity. Degenerative changes in the | | spine. Partially imaged intramedullary sushma in the left femur. IMPRESSION: Since | | 10/22/2017, interval removal of prior percutaneous gastrostomy tube and placement of a | | new gastrostomy tube, which terminates in the gastric body. The stomach is not cinched | | to the anterior abdominal wall in the region of the tube. No extravasated contrast or | | loculated fluid collection seen. Tiny bubble of gas in the preperitoneal space or | | peritoneal cavity, which may be postprocedural in nature. I have personally reviewed the | | images and, if necessary, edited the report. I agree with the report as now presented. | | Final signature: Pham Webb MD 10/28/2017 9:20 AM Preliminary: Pham Arango | | MD Tracey Dictation initiated: Pham Webb MD 10/28/2017 8:42 AM | |deformity. Degenerative changes in the spine. Partially imaged intramedullary sushma in the l eft femur. | | | |IMPRESSION: | | | |Since 10/22/2017, interval removal of prior percutaneous gastrostomy tube and placement of a new gastrostomy tube, which terminates in the gastric body. The stomach is not cinched to t he anterior abdominal wall in the | |region of the tube. No extravasated contrast or loculated fluid collection seen. Tiny bubb le of gas in the preperitoneal space or peritoneal cavity, which may be postprocedural in na ture. | | | |I have personally reviewed the images and, if necessary, edited the report. I agree with th e report as now presented. | | | |Final signature: Pham Webb MD 10/28/2017 9:20 AM | |Preliminary: Pham Webb MD | |Dictation initiated: Pham Webb MD 10/28/2017 8:42 AM | + + + +---------+ + + | Performing | Address | City/State/Zipcode | Phone Number | | Organization | | | | + +---------+ + + | [facility] | | | | | VOICE RECOGNITION 2 | | | | + +---------+ + + X-RAY PORTABLE CHEST PICC LINE CHECK (10/27/2017 1:06 PM PDT) + + | Specimen | + + | | + + + + + | Narrative | Performed At | + + + | EXAM: CO CHEST PICC LINE CHECK HISTORY: picc done | [facility] | | COMPARISON: 09/23/2017 FINDINGS: Left upper extremity PICC with | RADIOLOGY VOICE | | the tip terminating near the cavoatrial junction. Multiple devices | RECOGNITION 2 | | overlie the chest. The cardiomediastinal silhouette is unchanged. | | | There is no significant pneumothorax or pleural effusion. Bibasilar | | | streaky airspace opacities. Remote posttraumatic appearance of the | | | left proximal humerus and acromioclavicular joint. IMPRESSION: | | | Interval placement of a left upper extremity PICC with the | | | terminating near the cavoatrial junction. I have personally | | | reviewed the images and, if necessary, edited the report. I agree with | | | the report as now presented. Final signature: Francisco Javier Valverde | | | 10/27/2017 6:28 PM Preliminary: Francisco Javier Valverde MD | | | Dictation initiated: Francisco Javier Valverde MD 10/27/2017 6:27 PM | | + + + + + | Procedure Note | + + | Service Account, Hickies Res In Interface - 10/27/2017 6:29 PM PDT EXAM: CO CHEST | | PICC LINE CHECK HISTORY: picc done COMPARISON: 09/23/2017 FINDINGS: Left upper | | extremity PICC with the tip terminating near the cavoatrial junction. Multiple devices | | overlie the chest. The cardiomediastinal silhouette is unchanged. There is no | | significant pneumothorax or pleural effusion. Bibasilar streaky airspace opacities. | | Remote posttraumatic appearance of the left proximal humerus and acromioclavicular | | joint. IMPRESSION: Interval placement of a left upper extremity PICC with the | | terminating near the cavoatrial junction. I have personally reviewed the images and, if | | necessary, edited the report. I agree with the report as now presented. Final | | signature: Francisco Javier Valverde MD 10/27/2017 6:28 PM Preliminary: Francisco Javier Valverde MD | | Dictation initiated: Francisco Javier Valverde MD 10/27/2017 6:27 PM | | | |Remote posttraumatic appearance of the left proximal humerus and acromioclavicular joint. | | | |IMPRESSION: | | | |Interval placement of a left upper extremity PICC with the terminating near the cavoatrial junction. | | | |I have personally reviewed the images and, if necessary, edited the report. I agree with e report as now presented. | | | |Final signature: Francisco Javier Valverde MD 10/27/2017 6:28 PM | |Preliminary: Francisco Javier Valverde MD | |Dictation initiated: Francisco Javier Valverde MD 10/27/2017 6:27 PM | + + + +---------+ + + | Performing | Address | City/State/Zipcode | Phone Number | | Organization | | | | + +---------+ + + | [facility] | | | | | VOICE RECOGNITION 2 | | | | + +---------+ + + PICC LINE (10/27/2017 12:27 PM PDT) + + + | Narrative | Performed At | + + + | Declan Lipscomb RN 10/27/2017 1:29 PM PICC LINE Performed | | | by: DECLAN LIPSCOMB Authorized by: CHAZ HERNANDEZ PICC/Sugar | | | Insertion Procedure Note Indications:Antibiotics and TPN Procedure | | | location: Unit:[facility] Room: 4 Providers: Attending name: | | | Attending physically present: No PICC Nurse name: Madiha Lipscomb RN | | | Assisted by Tim Mendoza RN BSN Pre-Procedure Consent: written | | | consent obtained Consent given by: Next of kin Patient identity | | | confirmed per protocol: Yes Team Pause: Immediatly prior to the | | | procedure a pause per protocol was called. A pause verifies correct | | | patient, procedure, equipment, client support professional and site/side marked as | | | required. CLABSI Prevention Bundle: Skin preparation: | | | Chloraprep Protective barrier: Cap, Mask, Hand scrub, Gown, | | | Gloves and Full body drape. Cap and mask worn by assistive | | | personnel.Sterile Ultrasound techniques (sterile gel, and sterile | | | probe cover) used Dressing: Dressing | | | applied prior of removal of full barrier drape and hemostatic agent | | | applied Procedure Details Patient was placed in appropriate | | | position The vascular anatomy was identified by Ultrasound | | | Guidance.wire through the needle, introducer over the wire, then | | | catheter through the introducer Tip was placed using TPS (Tip | | | Positioning System). . A non-tunneled PICC Double lumen 5 Fr was | | | placed in the Left Arm area Brachial vein. Catheter lot number: | | | [id number] with a length of 55 cm was selected and trimmed 8 to a | | | remaining length of 47 cm All ports aspirated for blood and | | | flushed with saline Procedure comments: Accessed brachial vein | | | threaded wire patient c/o nerve pain wire removed. Accessed vein | | | higher in arm without problems. Power-injectable line: yes Attempts | | | 2 attempt(s) were made Complications None PICC catheter tip | | | location Chest radiograph ordered to verify placement and Line | | | verified by radiograph Adjustments made after chest film obtained: | | | none External measurement of catheter exposed: 5 cm. PICC catheter | | | tip location: Distal SVC Estimated blood loss: <10mL | | + + + VAT: PICC INSERTION W/US (10/27/2017 12:21 PM PDT) + + | Specimen | + + | | + + + + + | Narrative | Performed At | + + + | See procedure note. | | + + + CAPILLARY BLOOD GLUCOSE (NO CHG), POC (10/27/2017 12:12 PM PDT) + +---------+ + + + | Component | Value | Ref Range | Performed | Pathologist | | | | | At | Signature | + +---------+ + + + | BLOOD | 112 (H) | 70 - 99 mg/dL | [facility] | | | GLUCOSE, | | | [facility] | | | POC | | | [place] [place] | | | | | | OF CARE | | | | | | TESTS | | + +---------+ + + + + + | Specimen | + + | | + + + + + + + | Performing | Address | City/State/Zipcode | Phone Number | | Organization | | | | + + + + + | [facility] | [address] | [place], [place] | | | [facility] | [address] | [address] | | | TESTS | | | | + + + + + 12 LEAD ECG (10/27/2017 8:40 AM PDT) + + + + + + | Component | Value | Ref Range | Performed | Pathologist | | | | | At | Signature | + + + + + + | VENTRICULAR | 70 | bpm | [facility] | | | RATE | | | OF | | | | | | CARDIOLOGY | | + + + + + + | ATRIAL RATE | 69 | ms | [facility] | | | | | | OF | | | | | | CARDIOLOGY | | + + + + + + | P-R | 133 | ms | [facility] | | | INTERVAL | | | OF | | | | | | CARDIOLOGY | | + + + + + + | P AXIS | 73 | deg | [facility] | | | | | | OF | | | | | | CARDIOLOGY | | + + + + + + | QRS | 125 | ms | [facility] | | | DURATION | | | OF | | | | | | CARDIOLOGY | | + + + + + + | QT | 434 | ms | [facility] | | | | | | OF | | | | | | CARDIOLOGY | | + + + + + + | LAUREN | 468 | ms | [facility] | | | | | | OF | | | | | | CARDIOLOGY | | + + + + + + | R AXIS | 79 | deg | [facility] | | | | | | OF | | | | | | CARDIOLOGY | | + + + + + + | T AXIS | 23 | deg | [facility] | | | | | | OF | | | | | | CARDIOLOGY | | + + + + + + | ECG | Sinus rhythm | | [facility] | | | IMPRESSION | | | OF | | | | | | CARDIOLOGY | | + + + + + + | ECG | Right bundle branch | | [facility] | | | IMPRESSION | block- ABNORMAL ECG - | | OF | | | | | | CARDIOLOGY | | + + + + + + | ECG | Electronically signed | | [facility] | | | IMPRESSION | by: PAULO CAVAZOS | | OF | | | | 10-27-2017 10:38:44 | | CARDIOLOGY | | + + + + + + + + | Specimen | + + | | + + + + + | Narrative | Performed At | + + + | | | + + + + + + + + | Performing | Address | City/State/Zipcode | Phone Number | | Organization | | | | + + + + + | [facility] | [address] | [place], [place] | | | CARDIOLOGY | [address] | [address] | | + + + + + CAPILLARY BLOOD GLUCOSE (NO CHG), POC (10/27/2017 6:10 AM PDT) + +-------+ + + + | Component | Value | Ref Range | Performed | Pathologist | | | | | At | Signature | + +-------+ + + + | BLOOD | 82 | 70 - 99 mg/dL | [facility] - | | | GLUCOSE, | | | [facility] | | | POC | | | [facility] | | | | | | OF CARE | | | | | | TESTS | | + +-------+ + + + + + | Specimen | + + | | + + + + + + + | Performing | Address | City/State/Zipcode | Phone Number | | Organization | | | | + + + + + | [facility] | [address] | [place], [place] | | | [facility] | [address] | [address] | | | TESTS | | | | + + + + + MAGNESIUM, PLASMA (10/27/2017 4:30 AM PDT) + +-------+ + + + | Component | Value | Ref Range | Performed | Pathologist | | | | | At | Signature | + +-------+ + + + | MAGNESIUM,P | 1.9 | 1.6 - 2.6 mg/dL | [facility] | | | LASMA | | | LABORATORY | | | | | | SERVICES, | | | | | | CORE | | + +-------+ + + + + + | Specimen | + + | Blood - Blood | | (substance) | + + + + + | Narrative | Performed At | + + + | Reference range change effective 12/11/16. | [facility] | | | LABORATORY | | | SERVICES, CORE | + + + + + + + + | Performing | Address | City/State/Zipcode | Phone Number | | Organization | | | | + + + + + | [facility] | [address] | [place] [address] | | | SERVICES, CORE | [address] | | | + + + + + RENAL FUNCTION SET (NA,K,CL,CO2,BUN,CREAT,GLUC,CA,PHOS,ALB ) (10/27/2017 4:30 AM PDT) + + + + + + | Component | Value | Ref Range | Performed | Pathologist | | | | | At | Signature | + + + + + + | GLUCOSE, | 96 | 70 - 99 mg/dL | [facility] | | | PLASMA | | | LABORATORY | | | (LAB) | | | SERVICES, | | | | | | CORE | | + + + + + + | BUN, PLASMA | 13 | 6 - 20 mg/dL | [facility] | | | (LAB) | | | LABORATORY | | | | | | SERVICES, | | | | | | CORE | | + + + + + + | CREATININE | 0.49 (L) | 0.70 - 1.30 | [facility] | | | PLASMA | | mg/dL | LABORATORY | | | (LAB) | | | SERVICES, | | | | | | CORE | | + + + + + + | EGFR | >60 | >60 mL/min | [facility] | | | - | | | LABORATORY | | | SUDANESE | | | SERVICES, | | | | | | CORE | | + + + + + + | EGFR NON | >60 | >60 mL/min | [facility] | | | -[facility] | | | LABORATORY | | | RICAN | | | SERVICES, | | | | | | CORE | | + + + + + + | SODIUM, | 141 | 136 - 145 | [facility] | | | PLASMA | | mmol/L | LABORATORY | | | (LAB) | | | SERVICES, | | | | | | CORE | | + + + + + + | POTASSIUM, | 3.9 | 3.4 - 5.0 | [facility] | | | PLASMA | | mmol/L | LABORATORY | | | (LAB) | | | SERVICES, | | | | | | CORE | | + + + + + + | CHLORIDE, | 106 | 97 - 108 mmol/L | [facility] | | | PLASMA | | | LABORATORY | | | (LAB) | | | SERVICES, | | | | | | CORE | | + + + + + + | TOTAL CO2, | 29 | 21 - 32 mmol/L | [facility] | | | PLASMA | | | LABORATORY | | | (LAB) | | | SERVICES, | | | | | | CORE | | + + + + + + | CALCIUM, | 8.9 | 8.6 - 10.2 | [facility] | | | PLASMA | | mg/dL | LABORATORY | | | (LAB) | | | SERVICES, | | | | | | CORE | | + + + + + + | CALCIUM(ALB | 9.9 | 8.6 - 10.2 | [facility] | | | CORRECTED) | | mg/dL | LABORATORY | | | | | | SERVICES, | | | | | | CORE | | + + + + + + | ALBUMIN, | 2.7 (L) | 3.5 - 4.7 g/dL | [facility] | | | PLASMA | | | LABORATORY | | | (LAB) | | | SERVICES, | | | | | | CORE | | + + + + + + | PHOSPHORUS, | 3.2 | 2.4 - 4.7 mg/dL | [facility] | | | PLASMA | | | LABORATORY | | | (LAB) | | | SERVICES, | | | | | | CORE | | + + + + + + | POTASSIUM | No Hemo | | [facility] | | | CMNT | | | LABORATORY | | | | | | SERVICES, | | | | | | CORE | | + + + + + + | ANION GAP | 6 | 4 - 11 mmol/L | [facility] | | | | | | LABORATORY | | | | | | SERVICES, | | | | | | CORE | | + + + + + + | ANION | 9 | 4 - 11 mmol/L | [facility] | | | GAP(ALB | | | LABORATORY | | | CORRECTED) | | | SERVICES, | | | | | | CORE | | + + + + + + + + | Specimen | + + | Blood - Blood | | (substance) | + + + + + | Narrative | Performed At | + + + | GFR is estimated using the MDRD equation recommended by the | [facility] | | National Kidney Disease Education Program. Estimated GFR | LABORATORY | | Interpretive Information: <60 mL/min/1.73 sq m | SERVICES, CORE | | Chronic Kidney Disease <15 mL/min/1.73 sq m | | | Kidney Failure Estimated GFR greater that 60 mL/min/1.73 sq m is of | | | limited clinical value. The MDRD equation is not valid in the | | | following situations: - Patients under 18 years of age - Severe | | | malnutrition or obesity - Vegetarian diet - Rapidly changing kidney | | | function - Amputees, paraplegics, or other muscle-wasting diseses | | + + + + + + + + | Performing | Address | City/State/Zipcode | Phone Number | | Organization | | | | + + + + + | [facility] | [address] | [place] [address] | | | SERVICES, CORE | [address] | | | + + + + + CAPILLARY BLOOD GLUCOSE (NO CHG), POC (10/27/2017 12:30 AM PDT) + +---------+ + + + | Component | Value | Ref Range | Performed | Pathologist | | | | | At | Signature | + +---------+ + + + | BLOOD | 119 (H) | 70 - 99 mg/dL | [facility] - | | | GLUCOSE, | | | [facility] | | | POC | | | [facility] | | | | | | OF CARE | | | | | | TESTS | | + +---------+ + + + + + | Specimen | + + | | + + + + + + + | Performing | Address | City/State/Zipcode | Phone Number | | Organization | | | | + + + + + | [facility] | [address] | [place], [place] | | | [facility] OF [facility] | [address] | [address] | | | TESTS | | | | + + + + + CAPILLARY BLOOD GLUCOSE (NO CHG), POC (10/26/2017 11:58 AM PDT) + +---------+ + + + | Component | Value | Ref Range | Performed | Pathologist | | | | | At | Signature | + +---------+ + + + | BLOOD | 110 (H) | 70 - 99 mg/dL | [facility] - | | | GLUCOSE, | | | [facility] | | | POC | | | [facility] | | | | | | OF CARE | | | | | | TESTS | | + +---------+ + + + + + | Specimen | + + | | + + + + + + + | Performing | Address | City/State/Zipcode | Phone Number | | Organization | | | | + + + + + | [facility] | [address] | [place], [place] | | | [facility] | [address] | [phone] | | | TESTS | | | | + + + + + CAPILLARY BLOOD GLUCOSE (NO CHG), POC (10/26/2017 5:57 AM PDT) + +---------+ + + + | Component | Value | Ref Range | Performed | Pathologist | | | | | At | Signature | + +---------+ + + + | BLOOD | 102 (H) | 70 - 99 mg/dL | [facility] - | | | GLUCOSE, | | | [facility] | | | POC | | | [place] [place] | | | | | | OF CARE | | | | | | TESTS | | + +---------+ + + + + + | Specimen | + + | | + + + + + + + | Performing | Address | City/State/Zipcode | Phone Number | | Organization | | | | + + + + + | [facility] | [address] | [place], [place] | | | [place] [facility] | [address] | [address] | | | TESTS | | | | + + + + + MAGNESIUM, PLASMA (10/26/2017 5:13 AM PDT) + +-------+ + + + | Component | Value | Ref Range | Performed | Pathologist | | | | | At | Signature | + +-------+ + + + | MAGNESIUM,P | 1.6 | 1.6 - 2.6 mg/dL | [facility] | | | LASMA | | | LABORATORY | | | | | | SERVICES, | | | | | | CORE | | + +-------+ + + + + + | Specimen | + + | Blood - Blood | | (substance) | + + + + + | Narrative | Performed At | + + + | Reference range change effective 12/11/16. | [facility] | | | LABORATORY | | | [address] [place] | + + + + + + + + | Performing | Address | City/State/Zipcode | Phone Number | | Organization | | | | + + + + + | [facility] | [address] | [place] [address] | | | SERVICES, CORE | [address] | | | + + + + + RENAL FUNCTION SET (NA,K,CL,CO2,BUN,CREAT,GLUC,CA,PHOS,ALB ) (10/26/2017 5:13 AM PDT) + + + + + + | Component | Value | Ref Range | Performed | Pathologist | | | | | At | Signature | + + + + + + | GLUCOSE, | 107 (H) | 70 - 99 mg/dL | [facility] | | | PLASMA | | | LABORATORY | | | (LAB) | | | SERVICES, | | | | | | CORE | | + + + + + + | BUN, PLASMA | 4 (L) | 6 - 20 mg/dL | [facility] | | | (LAB) | | | LABORATORY | | | | | | SERVICES, | | | | | | CORE | | + + + + + + | CREATININE | 0.52 (L) | 0.70 - 1.30 | [facility] | | | PLASMA | | mg/dL | LABORATORY | | | (LAB) | | | SERVICES, | | | | | | CORE | | + + + + + + | EGFR | >60 | >60 mL/min | [facility] | | | - | | | LABORATORY | | | SUDANESE | | | SERVICES, | | | | | | CORE | | + + + + + + | EGFR NON | >60 | >60 mL/min | [facility] | | | -[facility] | | | LABORATORY | | | RICAN | | | SERVICES, | | | | | | CORE | | + + + + + + | SODIUM, | 143 | 136 - 145 | [facility] | | | PLASMA | | mmol/L | LABORATORY | | | (LAB) | | | SERVICES, | | | | | | CORE | | + + + + + + | POTASSIUM, | 3.4 | 3.4 - 5.0 | [facility] | | | PLASMA | | mmol/L | LABORATORY | | | (LAB) | | | SERVICES, | | | | | | CORE | | + + + + + + | CHLORIDE, | 105 | 97 - 108 mmol/L | [facility] | | | PLASMA | | | LABORATORY | | | (LAB) | | | SERVICES, | | | | | | CORE | | + + + + + + | TOTAL CO2, | 30 | 21 - 32 mmol/L | [facility] | | | PLASMA | | | LABORATORY | | | (LAB) | | | SERVICES, | | | | | | CORE | | + + + + + + | CALCIUM, | 8.3 (L) | 8.6 - 10.2 | [facility] | | | PLASMA | | mg/dL | LABORATORY | | | (LAB) | | | SERVICES, | | | | | | CORE | | + + + + + + | CALCIUM(ALB | 9.5 | 8.6 - 10.2 | [facility] | | | CORRECTED) | | mg/dL | LABORATORY | | | | | | SERVICES, | | | | | | CORE | | + + + + + + | ALBUMIN, | 2.5 (L) | 3.5 - 4.7 g/dL | [facility] | | | PLASMA | | | LABORATORY | | | (LAB) | | | SERVICES, | | | | | | CORE | | + + + + + + | PHOSPHORUS, | 3.4 | 2.4 - 4.7 mg/dL | [facility] | | | PLASMA | | | LABORATORY | | | (LAB) | | | SERVICES, | | | | | | CORE | | + + + + + + | POTASSIUM | No Hemo | | [facility] | | | CMNT | | | LABORATORY | | | | | | SERVICES, | | | | | | CORE | | + + + + + + | ANION GAP | 8 | 4 - 11 mmol/L | [facility] | | | | | | LABORATORY | | | | | | SERVICES, | | | | | | CORE | | + + + + + + | ANION | 11 | 4 - 11 mmol/L | [facility] | | | GAP(ALB | | | LABORATORY | | | CORRECTED) | | | SERVICES, | | | | | | CORE | | + + + + + + + + | Specimen | + + | Blood - Blood | | (substance) | + + + + + | Narrative | Performed At | + + + | GFR is estimated using the MDRD equation recommended by the | [facility] | | National Kidney Disease Education Program. Estimated GFR | LABORATORY | | Interpretive Information: <60 mL/min/1.73 sq m | SERVICES, CORE | | Chronic Kidney Disease <15 mL/min/1.73 sq m | | | Kidney Failure Estimated GFR greater that 60 mL/min/1.73 sq m is of | | | limited clinical value. The MDRD equation is not valid in the | | | following situations: - Patients under 18 years of age - Severe | | | malnutrition or obesity - Vegetarian diet - Rapidly changing kidney | | | function - Amputees, paraplegics, or other muscle-wasting diseses | | + + + + + + + + | Performing | Address | City/State/Zipcode | Phone Number | | Organization | | | | + + + + + | [facility] | [address] | [place] [address] | | | [facility] [place] | [address] | | | + + + + + CAPILLARY BLOOD GLUCOSE (NO CHG), POC (10/26/2017 12:58 AM PDT) + +---------+ + + + | Component | Value | Ref Range | Performed | Pathologist | | | | | At | Signature | + +---------+ + + + | BLOOD | 103 (H) | 70 - 99 mg/dL | [facility] - | | | GLUCOSE, | | | [facility] | | | POC | | | [facility] | | | | | | OF CARE | | | | | | TESTS | | + +---------+ + + + + + | Specimen | + + | | + + + + + + + | Performing | Address | City/State/Zipcode | Phone Number | | Organization | | | | + + + + + | [facility] | [address] | [place], [place] | | | [facility] [facility] | [address] | [address] | | | TESTS | | | | + + + + + BASIC METABOLIC SET (NA, K, CL, TCO2, BUN, CR, GLU, CA) (10/25/2017 12:40 PM PDT) + + + + + + | Component | Value | Ref Range | Performed | Pathologist | | | | | At | Signature | + + + + + + | GLUCOSE, | 106 (H) | 70 - 99 mg/dL | [facility] | | | PLASMA | | | LABORATORY | | | (LAB) | | | SERVICES, | | | | | | CORE | | + + + + + + | BUN, PLASMA | 3 (L) | 6 - 20 mg/dL | [facility] | | | (LAB) | | | LABORATORY | | | | | | SERVICES, | | | | | | CORE | | + + + + + + | CREATININE | 0.56 (L) | 0.70 - 1.30 | [facility] | | | PLASMA | | mg/dL | LABORATORY | | | (LAB) | | | SERVICES, | | | | | | CORE | | + + + + + + | EGFR | >60 | >60 mL/min | [facility] | | | - | | | LABORATORY | | | SUDANESE | | | SERVICES, | | | | | | CORE | | + + + + + + | EGFR NON | >60 | >60 mL/min | [facility] | | | -[facility] | | | LABORATORY | | | RICAN | | | SERVICES, | | | | | | CORE | | + + + + + + | SODIUM, | 140 | 136 - 145 | [facility] | | | PLASMA | | mmol/L | LABORATORY | | | (LAB) | | | SERVICES, | | | | | | CORE | | + + + + + + | POTASSIUM, | 3.2 (L) | 3.4 - 5.0 | [facility] | | | PLASMA | | mmol/L | LABORATORY | | | (LAB) | | | SERVICES, | | | | | | CORE | | + + + + + + | CHLORIDE, | 105 | 97 - 108 mmol/L | [facility] | | | PLASMA | | | LABORATORY | | | (LAB) | | | SERVICES, | | | | | | CORE | | + + + + + + | TOTAL CO2, | 30 | 21 - 32 mmol/L | [facility] | | | PLASMA | | | LABORATORY | | | (LAB) | | | SERVICES, | | | | | | CORE | | + + + + + + | CALCIUM, | 8.2 (L) | 8.6 - 10.2 | [facility] | | | PLASMA | | mg/dL | LABORATORY | | | (LAB) | | | SERVICES, | | | | | | CORE | | + + + + + + | ANION GAP | 5 | 4 - 11 mmol/L | [facility] | | | | | | LABORATORY | | | | | | SERVICES, | | | | | | CORE | | + + + + + + | POTASSIUM | No Hemo | | [facility] | | | CMNT | | | LABORATORY | | | | | | SERVICES, | | | | | | CORE | | + + + + + + + + | Specimen | + + | Blood - Blood | | (substance) | + + + + + | Narrative | Performed At | + + + | GFR is estimated using the MDRD equation recommended by the | [facility] | | National Kidney Disease Education Program. Estimated GFR | LABORATORY | | Interpretive Information: <60 mL/min/1.73 sq m | SERVICES, CORE | | Chronic Kidney Disease <15 mL/min/1.73 sq m | | | Kidney Failure Estimated GFR greater that 60 mL/min/1.73 sq m is of | | | limited clinical value. The MDRD equation is not valid in the | | | following situations: - Patients under 18 years of age - Severe | | | malnutrition or obesity - Vegetarian diet - Rapidly changing kidney | | | function - Amputees, paraplegics, or other muscle-wasting diseses | | + + + + + + + + | Performing | Address | City/State/Zipcode | Phone Number | | Organization | | | | + + + + + | [facility] | [address] | [place] [address] | | | [facility] [place] | [address] | | | + + + + + CAPILLARY BLOOD GLUCOSE (NO CHG), POC (10/25/2017 11:53 AM PDT) + +-------+ + + + | Component | Value | Ref Range | Performed | Pathologist | | | | | At | Signature | + +-------+ + + + | BLOOD | 87 | 70 - 99 mg/dL | [facility] - | | | GLUCOSE, | | | [facility] | | | POC | | | [facility] | | | | | | [facility] CARE | | | | | | TESTS | | + +-------+ + + + + + | Specimen | + + | | + + + + + + + | Performing | Address | City/State/Zipcode | Phone Number | | Organization | | | | + + + + + | [facility] | [address] | [place], [place] | | | [facility] | [address] | [address] | | | TESTS | | | | + + + + + 12 LEAD ECG (10/25/2017 11:03 AM PDT) + + + + + + | Component | Value | Ref Range | Performed | Pathologist | | | | | At | Signature | + + + + + + | VENTRICULAR | 53 | bpm | [facility] | | | RATE | | | OF | | | | | | CARDIOLOGY | | + + + + + + | ATRIAL RATE | 54 | ms | [facility] | | | | | | OF | | | | | | CARDIOLOGY | | + + + + + + | P-R | 135 | ms | [facility] | | | INTERVAL | | | OF | | | | | | CARDIOLOGY | | + + + + + + | P AXIS | 72 | deg | [facility] | | | | | | OF | | | | | | CARDIOLOGY | | + + + + + + | QRS | 133 | ms | [facility] | | | DURATION | | | OF | | | | | | CARDIOLOGY | | + + + + + + | QT | 465 | ms | [facility] | | | | | | OF | | | | | | CARDIOLOGY | | + + + + + + | QTC-BAZETT | 439 | ms | [facility] | | | | | | OF | | | | | | CARDIOLOGY | | + + + + + + | R AXIS | 84 | deg | [facility] | | | | | | OF | | | | | | CARDIOLOGY | | + + + + + + | T AXIS | 26 | deg | [facility] | | | | | | OF | | | | | | CARDIOLOGY | | + + + + + + | ECG | Sinus bradycardia | | [facility] | | | IMPRESSION | | | OF | | | | | | CARDIOLOGY | | + + + + + + | ECG | Right bundle branch | | [facility] | | | IMPRESSION | block- ABNORMAL ECG - | | OF | | | | | | CARDIOLOGY | | + + + + + + | ECG | Electronically signed | | [facility] | | | IMPRESSION | by: GABRIELA VANN | | OF | | | | 10-25-2017 11:13:41 | | CARDIOLOGY | | + + + + + + + + | Specimen | + + | | + + + + + | Narrative | Performed At | + + + | | | + + + + + + + + | Performing | Address | City/State/Zipcode | Phone Number | | Organization | | | | + + + + + | [facility] | [address] | [place], [place] | | | CARDIOLOGY | [address] | [address] | | + + + + + CAPILLARY BLOOD GLUCOSE (NO CHG), POC (10/25/2017 3:35 AM PDT) + +-------+ + + + | Component | Value | Ref Range | Performed | Pathologist | | | | | At | Signature | + +-------+ + + + | BLOOD | 87 | 70 - 99 mg/dL | [facility] | | | GLUCOSE, | | | [facility] | | | POC | | | [facility] | | | | | | OF CARE | | | | | | TESTS | | + +-------+ + + + + + | Specimen | + + | | + + + + + + + | Performing | Address | City/State/Zipcode | Phone Number | | Organization | | | | + + + + + | [facility] | [address] | [place], [place] | | | [facility] | [address] | [address] | | | TESTS | | | | + + + + + 12 LEAD ECG (10/24/2017 6:20 PM PDT) + + + + + + | Component | Value | Ref Range | Performed | Pathologist | | | | | At | Signature | + + + + + + | VENTRICULAR | 63 | bpm | [facility] | | | RATE | | | OF | | | | | | CARDIOLOGY | | + + + + + + | ATRIAL RATE | 64 | ms | [facility] | | | | | | OF | | | | | | CARDIOLOGY | | + + + + + + | P-R | 138 | ms | [facility] | | | INTERVAL | | | OF | | | | | | CARDIOLOGY | | + + + + + + | P AXIS | 50 | deg | [facility] | | | | | | OF | | | | | | CARDIOLOGY | | + + + + + + | QRS | 132 | ms | [facility] | | | DURATION | | | OF | | | | | | CARDIOLOGY | | + + + + + + | QT | 445 | ms | [facility] | | | | | | OF | | | | | | CARDIOLOGY | | + + + + + + | QTC-HALIMA | 458 | ms | [facility] | | | | | | OF | | | | | | CARDIOLOGY | | + + + + + + | R AXIS | 77 | deg | [facility] | | | | | | OF | | | | | | CARDIOLOGY | | + + + + + + | T AXIS | 4 | deg | [facility] | | | | | | OF | | | | | | CARDIOLOGY | | + + + + + + | ECG | Sinus rhythm | | [facility] | | | IMPRESSION | | | OF | | | | | | CARDIOLOGY | | + + + + + + | ECG | Right bundle branch | | [facility] | | | IMPRESSION | block | | OF | | | | | | CARDIOLOGY | | + + + + + + | ECG | Borderline ST elevation, | | [facility] | | | IMPRESSION | lateral leads- ABNORMAL | | OF | | | | ECG - | | CARDIOLOGY | | + + + + + + | ECG | Electronically signed | | [facility] | | | IMPRESSION | by: GABRIELA VANN | | OF | | | | 10-25-2017 10:25:24 | | CARDIOLOGY | | + + + + + + + + | Specimen | + + | | + + + + + | Narrative | Performed At | + + + | | | + + + + + + + + | Performing | Address | City/State/Zipcode | Phone Number | | Organization | | | | + + + + + | [facility] | [address] | [place], [place] | | | CARDIOLOGY | [address] | [address] | | + + + + + CALCIUM, IONIZED, WHOLE BLOOD (10/24/2017 4:58 PM PDT) + + + + + + | Component | Value | Ref Range | Performed | Pathologist | | | | | At | Signature | + + + + + + | MAHOGANY ICA, | 1.13 (L) | 1.14 - 1.32 | [facility] | | | WHOLE BLD | | mmol/L | LABORATORY | | | | | | SERVICES, | | | | | | CORE | | + + + + + + | PH, WHOLE | 7.39 | | [facility] | | | BLOOD | | | LABORATORY | | | | | | SERVICES, | | | | | | CORE | | + + + + + + | ICA, | 1.12 (L) | 1.14 - 1.28 | [facility] | | | CORRECTED | | mmol/L | LABORATORY | | | TO PH 7.4 | | | SERVICES, | | | | | | CORE | | + + + + + + + + | Specimen | + + | Blood - Blood | | (substance) | + + + + + + + | Performing | Address | City/State/Zipcode | Phone Number | | Organization | | | | + + + + + | [facility] | [address] | [place] [address] | | | [facility] | [address] | | | + + + + + PREALBUMIN (10/24/2017 4:50 PM PDT) + + + + + + | Component | Value | Ref Range | Performed | Pathologist | | | | | At | Signature | + + + + + + | PREALBUMIN | 14.7 (L) | 17.0 - 42.0 | [facility] | | | | | mg/dL | [facility] | | | | | | [place] | | + + + + + + + + | Specimen | + + | Blood - Blood | | (substance) | + + + + + + + | Performing | Address | City/State/Zipcode | Phone Number | | Organization | | | | + + + + + | [facility] | [address] | [place] [address] | | | [place] | | | | + + + + + C-REACTIVE PROTEIN (10/24/2017 4:45 PM PDT) + + + + + + | Component | Value | Ref Range | Performed | Pathologist | | | | | At | Signature | + + + + + + | C-REACTIVE | 16.0 (H) | <10.0 mg/L | [facility] | | | PROTEIN | | | LABORATORY | | | | | | SERVICES, | | | | | | CORE | | + + + + + + + + | Specimen | + + | Blood - Blood | | (substance) | + + + + + | Narrative | Performed At | + + + | New method, new reference range and new reporting units as of | [facility] | | 09/30/2013. | LABORATORY | | | SERVICES, CORE | + + + + + + + + | Performing | Address | City/State/Zipcode | Phone Number | | Organization | | | | + + + + + | [facility] | [address] | [place] [address] | | | SERVICES, CORE | [address] | | | + + + + + ALT, PLASMA (10/24/2017 4:45 PM PDT) + +-------+ + + + | Component | Value | Ref Range | Performed | Pathologist | | | | | At | Signature | + +-------+ + + + | ALT (SGPT) | 20 | <=60 U/L | [facility] | | | | | | LABORATORY | | | | | | SERVICES, | | | | | | CORE | | + +-------+ + + + + + | Specimen | + + | Blood - Blood | | (substance) | + + + + + + + | Performing | Address | City/State/Zipcode | Phone Number | | Organization | | | | + + + + + | [facility] | [address] | [place] [address] | | | SERVICES, CORE | [address] | | | + + + + + TRIGLYCERIDES, PLASMA (10/24/2017 4:45 PM PDT) + +-------+ + + + | Component | Value | Ref Range | Performed | Pathologist | | | | | At | Signature | + +-------+ + + + | TRIGLYCERID | 93 | <150 mg/dL | [facility] | | | ES | | | LABORATORY | | | | | | SERVICES, | | | | | | CORE | | + +-------+ + + + + + | Specimen | + + | Blood - Blood | | (substance) | + + + + + | Narrative | Performed At | + + + | Triglyceride Reference Range: Normal: <150 | [facility] | | mg/dL Borderline High: 150-199 mg/dL High: | LABORATORY | | 200-499 mg/dL Very High: >=500 mg/dL | SERVICES, CORE | + + + + + + + + | Performing | Address | City/State/Zipcode | Phone Number | | Organization | | | | + + + + + | [email or web address] | [address] | [place] [address] | | | SERVICES, CORE | [address] | | | + + + + + AST, PLASMA (10/24/2017 4:45 PM PDT) + +---------+ + + + | Component | Value | Ref Range | Performed | Pathologist | | | | | At | Signature | + +---------+ + + + | AST(SGOT) | 14 | <=41 U/L | [facility] | | | | | | LABORATORY | | | | | | SERVICES, | | | | | | CORE | | + +---------+ + + + | AST CMNT | No Hemo | | [facility] | | | | | | LABORATORY | | | | | | SERVICES, | | | | | | CORE | | + +---------+ + + + + + | Specimen | + + | Blood - Blood | | (substance) | + + + + + + + | Performing | Address | City/State/Zipcode | Phone Number | | Organization | | | | + + + + + | [facility] | [address] | [place] [address] | | | SERVICES, CORE | [address] | | | + + + + + ALKALINE PHOSPHATASE, PLASMA (10/24/2017 4:45 PM PDT) + +---------+ + + + | Component | Value | Ref Range | Performed | Pathologist | | | | | At | Signature | + +---------+ + + + | ALK PHOS | 200 (H) | 56 - 119 U/L | [facility] | | | | | | LABORATORY | | | | | | SERVICES, | | | | | | CORE | | + +---------+ + + + + + | Specimen | + + | Blood - Blood | | (substance) | + + + + + + + | Performing | Address | City/State/Zipcode | Phone Number | | Organization | | | | + + + + + | [facility] | [address] | [place] [address] | | | SERVICES, CORE | [address] | | | + + + + + BILIRUBIN DIRECT (10/24/2017 4:45 PM PDT) + +---------+ + + + | Component | Value | Ref Range | Performed | Pathologist | | | | | At | Signature | + +---------+ + + + | BILIRUBIN | 0.1 | 0.0 - 0.3 mg/dL | [facility] | | | DIRECT | | | LABORATORY | | | | | | SERVICES, | | | | | | CORE | | + +---------+ + + + | BILI D CMNT | No Hemo | | [facility] | | | | | | LABORATORY | | | | | | SERVICES, | | | | | | CORE | | + +---------+ + + + + + | Specimen | + + | Blood - Blood | | (substance) | + + + + + + + | Performing | Address | City/State/Zipcode | Phone Number | | Organization | | | | + + + + + | [facility] | [address] | [place] [address] | | | SERVICES, CORE | [address] | | | + + + + + BILIRUBIN TOTAL (10/24/2017 4:45 PM PDT) + +---------+ + + + | Component | Value | Ref Range | Performed | Pathologist | | | | | At | Signature | + +---------+ + + + | BILIRUBIN | 0.3 | 0.3 - 1.2 mg/dL | [facility] | | | TOTAL | | | LABORATORY | | | | | | SERVICES, | | | | | | CORE | | + +---------+ + + + | BILI T CMNT | No Hemo | | [facility] | | | | | | LABORATORY | | | | | | SERVICES, | | | | | | CORE | | + +---------+ + + + + + | Specimen | + + | Blood - Blood | | (substance) | + + + + + + + | Performing | Address | City/State/Zipcode | Phone Number | | Organization | | | | + + + + + | [facility] | [address] | [place] [address] | | | SERVICES, CORE | [address] | | | + + + + + PHOSPHORUS, PLASMA (10/24/2017 4:45 PM PDT) + +-------+ + + + | Component | Value | Ref Range | Performed | Pathologist | | | | | At | Signature | + +-------+ + + + | PHOSPHORUS, | 3.2 | 2.4 - 4.7 mg/dL | [facility] | | | PLASMA | | | LABORATORY | | | (LAB) | | | SERVICES, | | | | | | CORE | | + +-------+ + + + + + | Specimen | + + | Blood - Blood | | (substance) | + + + + + + + | Performing | Address | City/State/Zipcode | Phone Number | | Organization | | | | + + + + + | [facility] | [address] | [place] [address] | | | SERVICES, CORE | [address] | | | + + + + + ALBUMIN, PLASMA (10/24/2017 4:45 PM PDT) + +---------+ + + + | Component | Value | Ref Range | Performed | Pathologist | | | | | At | Signature | + +---------+ + + + | ALBUMIN, | 2.6 (L) | 3.5 - 4.7 g/dL | [facility] | | | PLASMA | | | LABORATORY | | | (LAB) | | | SERVICES, | | | | | | CORE | | + +---------+ + + + + + | Specimen | + + | Blood - Blood | | (substance) | + + + + + + + | Performing | Address | City/State/Zipcode | Phone Number | | Organization | | | | + + + + + | [facility] | [address] | [place] [address] | | | SERVICES, CORE | [address] | | | + + + + + MAGNESIUM, PLASMA (10/24/2017 4:45 PM PDT) + +-------+ + + + | Component | Value | Ref Range | Performed | Pathologist | | | | | At | Signature | + +-------+ + + + | MAGNESIUM,P | 1.7 | 1.6 - 2.6 mg/dL | [facility] | | | LASMA | | | LABORATORY | | | | | | SERVICES, | | | | | | CORE | | + +-------+ + + + + + | Specimen | + + | Blood - Blood | | (substance) | + + + + + | Narrative | Performed At | + + + | Reference range change effective 12/11/16. | [facility] | | | LABORATORY | | | [facility] [address] | + + + + + + + + | Performing | Address | City/State/Zipcode | Phone Number | | Organization | | | | + + + + + | [facility] | [address] | [place] [address] | | | SERVICES, NATALEE | [address] | | | + + + + + BASIC METABOLIC SET (NA, K, CL, TCO2, BUN, CR, GLU, CA) (10/24/2017 4:45 PM PDT) + + + + + + | Component | Value | Ref Range | Performed | Pathologist | | | | | At | Signature | + + + + + + | GLUCOSE, | 111 (H) | 70 - 99 mg/dL | [facility] | | | PLASMA | | | LABORATORY | | | (LAB) | | | SERVICES, | | | | | | CORE | | + + + + + + | BUN, PLASMA | 5 (L) | 6 - 20 mg/dL | [facility] | | | (LAB) | | | LABORATORY | | | | | | SERVICES, | | | | | | CORE | | + + + + + + | CREATININE | 0.53 (L) | 0.70 - 1.30 | [facility] | | | PLASMA | | mg/dL | LABORATORY | | | (LAB) | | | SERVICES, | | | | | | CORE | | + + + + + + | EGFR | >60 | >60 mL/min | [facility] | | | - | | | LABORATORY | | | SUDANESE | | | SERVICES, | | | | | | CORE | | + + + + + + | EGFR NON | >60 | >60 mL/min | [facility] | | | -KAYE | | | LABORATORY | | | RICAN | | | SERVICES, | | | | | | CORE | | + + + + + + | SODIUM, | 141 | 136 - 145 | [facility] | | | PLASMA | | mmol/L | LABORATORY | | | (LAB) | | | SERVICES, | | | | | | CORE | | + + + + + + | POTASSIUM, | 3.3 (L) | 3.4 - 5.0 | [facility] | | | PLASMA | | mmol/L | LABORATORY | | | (LAB) | | | SERVICES, | | | | | | CORE | | + + + + + + | CHLORIDE, | 104 | 97 - 108 mmol/L | [facility] | | | PLASMA | | | LABORATORY | | | (LAB) | | | SERVICES, | | | | | | CORE | | + + + + + + | TOTAL CO2, | 29 | 21 - 32 mmol/L | [facility] | | | PLASMA | | | LABORATORY | | | (LAB) | | | SERVICES, | | | | | | CORE | | + + + + + + | CALCIUM, | 8.2 (L) | 8.6 - 10.2 | [facility] | | | PLASMA | | mg/dL | LABORATORY | | | (LAB) | | | SERVICES, | | | | | | CORE | | + + + + + + | ANION GAP | 8 | 4 - 11 mmol/L | [facility] | | | | | | LABORATORY | | | | | | SERVICES, | | | | | | CORE | | + + + + + + | POTASSIUM | No Hemo | | [facility] | | | CMNT | | | LABORATORY | | | | | | SERVICES, | | | | | | CORE | | + + + + + + + + | Specimen | + + | Blood - Blood | | (substance) | + + + + + | Narrative | Performed At | + + + | GFR is estimated using the MDRD equation recommended by the | [facility] | | National Kidney Disease Education Program. Estimated GFR | LABORATORY | | Interpretive Information: <60 mL/min/1.73 sq m | SERVICES, CORE | | Chronic Kidney Disease <15 mL/min/1.73 sq m | | | Kidney Failure Estimated GFR greater that 60 mL/min/1.73 sq m is of | | | limited clinical value. The MDRD equation is not valid in the | | | following situations: - Patients under 18 years of age - Severe | | | malnutrition or obesity - Vegetarian diet - Rapidly changing kidney | | | function - Amputees, paraplegics, or other muscle-wasting diseses | | + + + + + + + + | Performing | Address | City/State/Zipcode | Phone Number | | Organization | | | | + + + + + | [facility] | [address] | [place] [address] | | | SERVICES, NATALEE | [address] | | | + + + + + CHELE CATES (10/24/2017 4:01 PM PDT) + + + | Narrative | Performed At | + + + | Farhan Farrell RN 10/24/2017 4:05 PM PICC LINE Performed | | | by: FARHAN FARRELL Authorized by: CHAZ HERNANDEZ PICC/Sugar | | | Insertion Procedure Note Indications:TPN Procedure location: | | | Unit:13a Room: 4 Providers: Attending name: Attending physically | | | present: No PICC Nurse name: Nery Farrell Pre-Procedure Consent: | | | written consent obtained Consent given by: Next of kin Patient | | | identity confirmed per protocol: Yes Team Pause: Immediatly prior to | | | the procedure a pause per protocol was called. A pause verifies | | | correct patient, procedure, equipment, client support professional and site/side | | | marked as required. CLABSI Prevention Bundle: Skin preparation: | | | Chloraprep Protective barrier: Cap, Mask, Hand scrub, Gown, | | | Gloves and Full body drape..Sterile Ultrasound techniques (sterile | | | gel, and sterile probe cover) used Dressing: | | | Dressing applied prior of removal of full barrier drape and | | | hemostatic agent applied Procedure Details Patient was placed in | | | appropriate position The vascular anatomy was identified by | | | Ultrasound Guidance.wire through the needle, introducer over the | | | wire, then catheter through the introducer Tip was placed using TLS | | | (Tip Locating System) and TPS (Tip Positioning System). . A | | | non-tunneled PICC Double lumen 5 Fr was placed in the Right Arm | | | area Basilic vein. Catheter lot number: [id number] with a length of 55 | | | cm was selected and trimmed 8 to a remaining length of 47 cm | | | All ports aspirated for blood and flushed with saline | | | Power-injectable line: yes Attempts 1 attempt(s) were made | | | Complications None PICC catheter tip location Chest radiograph | | | ordered to verify placement and Line verified by radiograph | | | Adjustments made after chest film obtained: none External measurement | | | of catheter exposed: 5 cm. PICC catheter tip location: Cavo-Atrial | | | Junction Estimated blood loss: <10mL | | + + + X-RAY PORTABLE CHEST 1 VIEW (10/24/2017 3:26 PM PDT) + + | Specimen | + + | | + + + + + | Narrative | Performed At | + + + | EXAM: CO CHEST 1 VIEW HISTORY: PICC placed-pt ready. | [facility] | | COMPARISON: October 12, 2017 FINDINGS: The right sided PICC | RADIOLOGY VOICE | | terminates within the region of the superior cavoatrial junction. | RECOGNITION 2 | | Cardiac contours are normal. Mediastinal contours are normal. | | | Minimal streaky retrocardiac atelectasis is present. There is no | | | pleural effusion. There is no pneumothorax. A right lateral fifth rib | | | deformity is noted. A healing left proximal humeral fracture is | | | unchanged. IMPRESSION: The PICC terminates within the region | | | of the superior cavoatrial junction. I have personally reviewed | | | the images and, if necessary, edited the report. I agree with the | | | report as now presented. Final signature: Julian Perkins MD | | | 10/24/2017 3:42 PM Preliminary: Julian Perkins MD Dictation | | | initiated: Julian Perkins MD 10/24/2017 3:40 PM | | + + + + + | Procedure Note | + + | Service Account, Radiant Res In Interface - 10/24/2017 3:43 PM PDT EXAM: CO CHEST 1 | | VIEW HISTORY: PICC placed-pt ready. COMPARISON: October 12, 2017 FINDINGS: The right | | sided PICC terminates within the region of the superior cavoatrial junction. Cardiac | | contours are normal. Mediastinal contours are normal. Minimal streaky retrocardiac | | atelectasis is present. There is no pleural effusion. There is no pneumothorax. A right | | lateral fifth rib deformity is noted. A healing left proximal humeral fracture is | | unchanged. IMPRESSION: The PICC terminates within the region of the superior cavoatrial | | junction. I have personally reviewed the images and, if necessary, edited the report. I | | agree with the report as now presented. Final signature: Julian Perkins MD 10/24/2017 | | 3:42 PM Preliminary: Julian Perkins MD Dictation initiated: Julian Perkins MD | | 10/24/2017 3:40 PM | |IMPRESSION: | | | |The PICC terminates within the region of the superior cavoatrial junction. | | | |I have personally reviewed the images and, if necessary, edited the report. I agree with th e report as now presented. | | | |Final signature: Julian Perkins MD 10/24/2017 3:42 PM | |Preliminary: Julian Perkins MD | |Dictation initiated: Julian Perkins MD 10/24/2017 3:40 PM | + + + +---------+ + + | Performing | Address | City/State/Zipcode | Phone Number | | Organization | | | | + +---------+ + + | [facility] | | | | | VOICE RECOGNITION 2 | | | | + +---------+ + + VAT: PICC INSERTION W/US (10/24/2017 1:56 PM PDT) + + | Specimen | + + | | + + + + + | Narrative | Performed At | + + + | See procedure note. | | + + + CAPILLARY BLOOD GLUCOSE (NO CHG), POC (10/24/2017 12:21 PM PDT) + +-------+ + + + | Component | Value | Ref Range | Performed | Pathologist | | | | | At | Signature | + +-------+ + + + | BLOOD | 96 | 70 - 99 mg/dL | [facility] | | | GLUCOSE, | | | [facility] | | | POC | | | [facility] | | | | | | OF CARE | | | | | | TESTS | | + +-------+ + + + + + | Specimen | + + | | + + + + + + + | Performing | Address | City/State/Zipcode | Phone Number | | Organization | | | | + + + + + | [facility] | [address] | [place], [place] | | | [facility] | [address] | [phone] | | | TESTS | | | | + + + + + PROCEDURE NOTE (10/24/2017 12:06 PM PDT) + + + | Narrative | Performed At | + + + | Karsten Kelly MD 10/24/2017 12:18 PM Operative Note - Trauma | | | Surgery Patient Name: Diogenes Temple Date of | | | Surgery: 10/24/2017 Attending : Monster Rucker MD Resident: | | | Karsten Kelly MD Preoperative Diagnosis: Gastrostomy tube | | | dysfunction Need for nutritional support Postoperative Diagnosis: | | | Gastrostomy tube displacement Presence of new gastrostomy tube | | | Need for nutritional support Procedure: 1. Esophagogastroscopy | | | 2. PEG Indications: Diogenes Temple is a 67 y.o. male with | | | complex surgical history following traumatic injury. There was | | | concern that medication being given via his extant PEG was coming | | | back out his KENDALL drain, prompting further evaluation. He was | | | therefore indicated for the above procedure. Findings: No | | | evidence of extant tube within the stomach Leakage of insufflation | | | consistent with pinpoint hole in stomach No gross lesions/defects in | | | stomach New PEG placed Procedure in Detail: Following GETA, the | | | abdomen was prepped and draped in the normal sterile fashion. | | | Prior to beginning the procedure, a time out was held where the | | | patient, site, and procedure were verified by all members of the | | | operative staff. Prior to incision, only scheduled antibiotic was | | | given. Flexible endoscopy was performed using the olympus scope. | | | After advancing through the esophagus the stomach was entered. | | | The pylorus was identified and the stomach examined. There was a | | | scar on the anterior wall consistent with prior gastrostomy tube | | | placement; there was no defect or other evidence of the PEG tube in | | | the stomach. An area on the anterior wall lateral to the prior | | | access sites was identified with one to one motion and good | | | transillumination. The stomach was accessed at this site under | | | direct vision using an angiocath. A wire was passed through this | | | access point and gasped using the endoscope. This withdrawn | | | through the mouth. The wire was then secured to the new | | | gastrostomy tube which was then advanced back into the stomach with | | | the tube through the abdominal wall under direct endoscopic vision. | | | The bumped spun freely upon placement. The depth of the tube at | | | the skin was 6cm. Securing suture and dessings were applied. | | | At the conclusion of the case all counts were correct. The patient | | | was awoken from GETA, extubated, and transferred to the PACU in | | | stable condition. I certify that Dr. Rucker was present for the | | | critical portions of the procedure. Complications: None | | | apparent EBL: Minimal Fluid: Crystalloid Specimens: | | | None Lines: New: PEG Old: KENDALL, PIVs Drains: None new | | | Postoperative Plan: PEG to gravity Concern for leakage of | | | insufflated air consistent with ongoing (though minor) leak from old | | | gastrostomy site, so NO feeds or medications via tube at this time. | | | Will consider in 48hrs pending clinical status. May obtain CT | | | of A/P prior to use given extensive reoperative history. Will need | | | PICC and TPN for nutritional support at this time Binder to remain | | | KENDALL to remain No changes to abx plan Karsten Kelly MD | | | Surgical Critical Care, PGY7 Pager: [phone] | | + + + CAPILLARY BLOOD GLUCOSE (NO CHG), POC (10/24/2017 10:31 AM PDT) + +-------+ + + + | Component | Value | Ref Range | Performed | Pathologist | | | | | At | Signature | + +-------+ + + + | BLOOD | 85 | 70 - 99 mg/dL | [facility] | | | GLUCOSE, | | | [facility] | | | POC | | | [facility] | | | | | | OF CARE | | | | | | TESTS | | + +-------+ + + + + + | Specimen | + + | | + + + + + + + | Performing | Address | City/State/Zipcode | Phone Number | | Organization | | | | + + + + + | [facility] | [address] | [place], [place] | | | [facility] | [address] | [phone] | | | TESTS | | | | + + + + + CAPILLARY BLOOD GLUCOSE (NO CHG), POC (10/24/2017 8:50 AM PDT) + +-------+ + + + | Component | Value | Ref Range | Performed | Pathologist | | | | | At | Signature | + +-------+ + + + | BLOOD | 98 | 70 - 99 mg/dL | [facility] - | | | GLUCOSE, | | | [facility] | | | POC | | | [facility] | | | | | | OF CARE | | | | | | TESTS | | + +-------+ + + + + + | Specimen | + + | | + + + + + + + | Performing | Address | City/State/Zipcode | Phone Number | | Organization | | | | + + + + + | [facility] | [address] | [place], [place] | | | [facility] | [facility] | [phone] | | | TESTS | | | | + + + + + RENAL FUNCTION SET (NA,K,CL,CO2,BUN,CREAT,GLUC,CA,PHOS,ALB ) (10/24/2017 5:08 AM PDT) + + + + + + | Component | Value | Ref Range | Performed | Pathologist | | | | | At | Signature | + + + + + + | GLUCOSE, | 93 | 70 - 99 mg/dL | [facility] | | | PLASMA | | | LABORATORY | | | (LAB) | | | SERVICES, | | | | | | CORE | | + + + + + + | BUN, PLASMA | 7 | 6 - 20 mg/dL | [facility] | | | (LAB) | | | LABORATORY | | | | | | SERVICES, | | | | | | CORE | | + + + + + + | CREATININE | 0.58 (L) | 0.70 - 1.30 | [facility] | | | PLASMA | | mg/dL | LABORATORY | | | (LAB) | | | SERVICES, | | | | | | CORE | | + + + + + + | EGFR | >60 | >60 mL/min | [facility] | | | - | | | LABORATORY | | | [facility] | | | SERVICES, | | | | | | CORE | | + + + + + + | EGFR NON | >60 | >60 mL/min | [facility] | | | -[facility] | | | LABORATORY | | | RICAN | | | SERVICES, | | | | | | CORE | | + + + + + + | SODIUM, | 138 | 136 - 145 | [facility] | | | PLASMA | | mmol/L | LABORATORY | | | (LAB) | | | SERVICES, | | | | | | CORE | | + + + + + + | POTASSIUM, | 3.4 | 3.4 - 5.0 | [facility] | | | PLASMA | | mmol/L | LABORATORY | | | (LAB) | | | SERVICES, | | | | | | CORE | | + + + + + + | CHLORIDE, | 104 | 97 - 108 mmol/L | [facility] | | | PLASMA | | | LABORATORY | | | (LAB) | | | SERVICES, | | | | | | CORE | | + + + + + + | TOTAL CO2, | 25 | 21 - 32 mmol/L | [facility] | | | PLASMA | | | LABORATORY | | | (LAB) | | | SERVICES, | | | | | | CORE | | + + + + + + | CALCIUM, | 8.5 (L) | 8.6 - 10.2 | [facility] | | | PLASMA | | mg/dL | LABORATORY | | | (LAB) | | | SERVICES, | | | | | | CORE | | + + + + + + | CALCIUM(ALB | 9.6 | 8.6 - 10.2 | [facility] | | | CORRECTED) | | mg/dL | LABORATORY | | | | | | SERVICES, | | | | | | CORE | | + + + + + + | ALBUMIN, | 2.6 (L) | 3.5 - 4.7 g/dL | [facility] | | | PLASMA | | | LABORATORY | | | (LAB) | | | SERVICES, | | | | | | CORE | | + + + + + + | PHOSPHORUS, | 3.4 | 2.4 - 4.7 mg/dL | [facility] | | | PLASMA | | | LABORATORY | | | (LAB) | | | SERVICES, | | | | | | CORE | | + + + + + + | POTASSIUM | No Hemo | | [facility] | | | CMNT | | | LABORATORY | | | | | | SERVICES, | | | | | | CORE | | + + + + + + | ANION GAP | 9 | 4 - 11 mmol/L | [facility] | | | | | | LABORATORY | | | | | | SERVICES, | | | | | | CORE | | + + + + + + | ANION | 12 (H) | 4 - 11 mmol/L | [facility] | | | GAP(ALB | | | LABORATORY | | | CORRECTED) | | | SERVICES, | | | | | | CORE | | + + + + + + + + | Specimen | + + | Blood - Blood | | (substance) | + + + + + | Narrative | Performed At | + + + | GFR is estimated using the MDRD equation recommended by the | [facility] | | National Kidney Disease Education Program. Estimated GFR | LABORATORY | | Interpretive Information: <60 mL/min/1.73 sq m | SERVICES, CORE | | Chronic Kidney Disease <15 mL/min/1.73 sq m | | | Kidney Failure Estimated GFR greater that 60 mL/min/1.73 sq m is of | | | limited clinical value. The MDRD equation is not valid in the | | | following situations: - Patients under 18 years of age - Severe | | | malnutrition or obesity - Vegetarian diet - Rapidly changing kidney | | | function - Amputees, paraplegics, or other muscle-wasting diseses | | + + + + + + + + | Performing | Address | City/State/Zipcode | Phone Number | | Organization | | | | + + + + + | [facility] | [address] | [place] [address] | | | SERVICES, CORE | [address] | | | + + + + + MAGNESIUM, PLASMA (10/24/2017 5:08 AM PDT) + +-------+ + + + | Component | Value | Ref Range | Performed | Pathologist | | | | | At | Signature | + +-------+ + + + | MAGNESIUM,P | 1.7 | 1.6 - 2.6 mg/dL | [facility] | | | LASMA | | | LABORATORY | | | | | | SERVICES, | | | | | | CORE | | + +-------+ + + + + + | Specimen | + + | Blood - Blood | | (substance) | + + + + + | Narrative | Performed At | + + + | Reference range change effective 12/11/16. | [facility] | | | LABORATORY | | | SERVICES, CORE | + + + + + + + + | Performing | Address | City/State/Zipcode | Phone Number | | Organization | | | | + + + + + | [id number] | [address] | [place] [address] | | | SERVICES, NATALEE | [address] | | | + + + + + CARDIOLOGY (10/24/2017 12:00 AM PDT) + + + | Narrative | Performed At | + + + | | | + + + CAPILLARY BLOOD GLUCOSE (NO CHG), POC (10/23/2017 9:32 PM PDT) + +-------+ + + + | Component | Value | Ref Range | Performed | Pathologist | | | | | At | Signature | + +-------+ + + + | BLOOD | 76 | 70 - 99 mg/dL | [facility] - | | | GLUCOSE, | | | [facility] | | | POC | | | [facility] | | | | | | OF CARE | | | | | | TESTS | | + +-------+ + + + + + | Specimen | + + | | + + + + + + + | Performing | Address | City/State/Zipcode | Phone Number | | Organization | | | | + + + + + | [facility] | [address] | [place], [place] | | | [facility] OF [facility] | [address] | [address] | | | TESTS | | | | + + + + + CBC AND AUTO DIFF (10/23/2017 11:39 AM PDT) + + + + + + | Component | Value | Ref Range | Performed | Pathologist | | | | | At | Signature | + + + + + + | WHITE CELL | 9.45 | 3.50 - 10.80 | [facility] | | | COUNT | | K/cu mm | LABORATORY | | | | | | SERVICES, | | | | | | CORE | | + + + + + + | RED CELL | 3.51 (L) | 4.50 - 6.00 | [facility] | | | COUNT | | M/cu mm | LABORATORY | | | | | | SERVICES, | | | | | | CORE | | + + + + + + | HEMOGLOBIN | 10.2 (L) | 13.5 - 17.5 | [facility] | | | | | g/dL | LABORATORY | | | | | | SERVICES, | | | | | | CORE | | + + + + + + | HEMATOCRIT | 33.0 (L) | 41.0 - 53.0 % | [facility] | | | | | | LABORATORY | | | | | | SERVICES, | | | | | | CORE | | + + + + + + | MCV | 94.0 | 80.0 - 100.0 fL | [facility] | | | | | | LABORATORY | | | | | | SERVICES, | | | | | | CORE | | + + + + + + | MCHC | 30.9 (L) | 32.0 - 36.0 | [facility] | | | | | g/dL | LABORATORY | | | | | | SERVICES, | | | | | | CORE | | + + + + + + | RDW SD | 55.8 (H) | 35.1 - 46.3 fL | [facility] | | | | | | LABORATORY | | | | | | SERVICES, | | | | | | CORE | | + + + + + + | PLATELET | 345 | 150 - 400 K/cu | [facility] | | | COUNT | | mm | LABORATORY | | | | | | SERVICES, | | | | | | CORE | | + + + + + + | MPV | 8.3 (L) | 9.7 - 12.3 fL | [facility] | | | | | | LABORATORY | | | | | | SERVICES, | | | | | | CORE | | + + + + + + | NRBC% | 0.0 | 0.0 - 0.3 % | [facility] | | | | | | LABORATORY | | | | | | SERVICES, | | | | | | CORE | | + + + + + + | NRBC# | 0.00 | 0.00 - 0.02 | [facility] | | | | | K/cu mm | LABORATORY | | | | | | SERVICES, | | | | | | CORE | | + + + + + + | NEUTROPHIL | 77.0 (H) | 50.0 - 70.0 % | [facility] | | | % | | | LABORATORY | | | | | | SERVICES, | | | | | | CORE | | + + + + + + | LYMPHOCYTE | 13.7 (L) | 18.0 - 42.0 % | [facility] | | | % | | | LABORATORY | | | | | | SERVICES, | | | | | | CORE | | + + + + + + | MONOCYTE % | 6.2 | 3.5 - 9.0 % | [facility] | | | | | | LABORATORY | | | | | | SERVICES, | | | | | | CORE | | + + + + + + | EOS % | 2.1 | 1.0 - 3.0 % | [facility] | | | | | | LABORATORY | | | | | | SERVICES, | | | | | | CORE | | + + + + + + | BASO % | 0.4 | 0.0 - 2.0 % | [facility] | | | | | | LABORATORY | | | | | | SERVICES, | | | | | | CORE | | + + + + + + | IG% | 0.6Comment: Increased | 0.0 - 1.0 % | [facility] | | | | immature granulocytes | | LABORATORY | | | | (IG) define a left | | SERVICES, | | | | shift. Immature | | CORE | | | | granulocytes (IG) are an | | | | | | automated count of | | | | | | metamyelocytes, | | | | | | myelocytes and | | | | | | promyelocytes. Bands | | | | | | are not included in the | | | | | | IG count. Bands are | | | | | | included in the | | | | | | neutrophil count. | | | | + + + + + + | NEUTROPHIL | 7.27 | 1.80 - 7.70 | [facility] | | | # | | K/cu mm | LABORATORY | | | | | | SERVICES, | | | | | | CORE | | + + + + + + | LYMPHOCYTE | 1.29 | 1.00 - 4.80 | [facility] | | | # | | K/cu mm | LABORATORY | | | | | | SERVICES, | | | | | | CORE | | + + + + + + | MONOCYTE # | 0.59 | 0.10 - 0.90 | [facility] | | | | | K/cu mm | LABORATORY | | | | | | SERVICES, | | | | | | CORE | | + + + + + + | EOS # | 0.20 | 0.00 - 0.50 | [facility] | | | | | K/cu mm | LABORATORY | | | | | | SERVICES, | | | | | | CORE | | + + + + + + | BASO # | 0.04 | 0.00 - 0.10 | [facility] | | | | | K/cu mm | LABORATORY | | | | | | SERVICES, | | | | | | CORE | | + + + + + + | IG# | 0.06 | 0.00 - 0.10 | [facility] | | | | | K/cu mm | LABORATORY | | | | | | SERVICES, | | | | | | CORE | | + + + + + + + + | Specimen | + + | Blood - Blood | | (substance) | + + + + + | Narrative | Performed At | + + + | New pediatric reference ranges for Lymphocyte % in effect October 10 | [facility] | | 2018. New reference ranges for MCV, MCHC, PLT, IG% and IG# | LABORATORY | | effective 09/05/2017 Increased immature granulocytes (IG) define a | SERVICES, CORE | | left shift. Immature granulocytes (IG) are an automated count of | | | metamyelocytes, myelocytes and promyelocytes. Bands are not included | | | in the IG count. Bands are included in the neutrophil count. | | + + + + + + + + | Performing | Address | City/State/Zipcode | Phone Number | | Organization | | | | + + + + + | [facility] | [address] | [place] [address] | | | SERVICES, CORE | [address] | | | + + + + + RENAL FUNCTION SET (NA,K,CL,CO2,BUN,CREAT,GLUC,CA,PHOS,ALB ) (10/23/2017 11:39 AM PDT) + + + + + + | Component | Value | Ref Range | Performed | Pathologist | | | | | At | Signature | + + + + + + | GLUCOSE, | 85 | 70 - 99 mg/dL | [facility] | | | PLASMA | | | LABORATORY | | | (LAB) | | | SERVICES, | | | | | | CORE | | + + + + + + | BUN, PLASMA | 7 | 6 - 20 mg/dL | [facility] | | | (LAB) | | | LABORATORY | | | | | | SERVICES, | | | | | | CORE | | + + + + + + | CREATININE | 0.69 (L) | 0.70 - 1.30 | [facility] | | | PLASMA | | mg/dL | LABORATORY | | | (LAB) | | | SERVICES, | | | | | | CORE | | + + + + + + | EGFR | >60 | >60 mL/min | [facility] | | | - | | | LABORATORY | | | SUDANESE | | | SERVICES, | | | | | | CORE | | + + + + + + | EGFR NON | >60 | >60 mL/min | [facility] | | | -KAYE | | | LABORATORY | | | RICAN | | | SERVICES, | | | | | | CORE | | + + + + + + | SODIUM, | 138 | 136 - 145 | [facility] | | | PLASMA | | mmol/L | LABORATORY | | | (LAB) | | | SERVICES, | | | | | | CORE | | + + + + + + | POTASSIUM, | 3.9 | 3.4 - 5.0 | [facility] | | | PLASMA | | mmol/L | LABORATORY | | | (LAB) | | | SERVICES, | | | | | | CORE | | + + + + + + | CHLORIDE, | 103 | 97 - 108 mmol/L | [facility] | | | PLASMA | | | LABORATORY | | | (LAB) | | | SERVICES, | | | | | | CORE | | + + + + + + | TOTAL CO2, | 27 | 21 - 32 mmol/L | [facility] | | | PLASMA | | | LABORATORY | | | (LAB) | | | SERVICES, | | | | | | CORE | | + + + + + + | CALCIUM, | 8.6 | 8.6 - 10.2 | [facility] | | | PLASMA | | mg/dL | LABORATORY | | | (LAB) | | | SERVICES, | | | | | | CORE | | + + + + + + | CALCIUM(ALB | 9.6 | 8.6 - 10.2 | [facility] | | | CORRECTED) | | mg/dL | LABORATORY | | | | | | SERVICES, | | | | | | CORE | | + + + + + + | ALBUMIN, | 2.7 (L) | 3.5 - 4.7 g/dL | [facility] | | | PLASMA | | | LABORATORY | | | (LAB) | | | SERVICES, | | | | | | CORE | | + + + + + + | PHOSPHORUS, | 3.6 | 2.4 - 4.7 mg/dL | [facility] | | | PLASMA | | | LABORATORY | | | (LAB) | | | SERVICES, | | | | | | CORE | | + + + + + + | POTASSIUM | No Hemo | | [facility] | | | CMNT | | | LABORATORY | | | | | | SERVICES, | | | | | | CORE | | + + + + + + | ANION GAP | 8 | 4 - 11 mmol/L | [facility] | | | | | | LABORATORY | | | | | | SERVICES, | | | | | | CORE | | + + + + + + | ANION | 11 | 4 - 11 mmol/L | [facility] | | | GAP(ALB | | | LABORATORY | | | CORRECTED) | | | SERVICES, | | | | | | CORE | | + + + + + + + + | Specimen | + + | Blood - Blood | | (substance) | + + + + + | Narrative | Performed At | + + + | GFR is estimated using the MDRD equation recommended by the | [facility] | | National Kidney Disease Education Program. Estimated GFR | LABORATORY | | Interpretive Information: <60 mL/min/1.73 sq m | SERVICES, CORE | | Chronic Kidney Disease <15 mL/min/1.73 sq m | | | Kidney Failure Estimated GFR greater that 60 mL/min/1.73 sq m is of | | | limited clinical value. The MDRD equation is not valid in the | | | following situations: - Patients under 18 years of age - Severe | | | malnutrition or obesity - Vegetarian diet - Rapidly changing kidney | | | function - Amputees, paraplegics, or other muscle-wasting diseses | | + + + + + + + + | Performing | Address | City/State/Zipcode | Phone Number | | Organization | | | | + + + + + | [facility] | [address] | [place] [address] | | | SERVICES, CORE | [address] | | | + + + + + 12 LEAD ECG (10/23/2017 9:46 AM PDT) + + + + + + | Component | Value | Ref Range | Performed | Pathologist | | | | | At | Signature | + + + + + + | VENTRICULAR | 62 | bpm | [facility] | | | RATE | | | OF | | | | | | CARDIOLOGY | | + + + + + + | ATRIAL RATE | 63 | ms | [facility] | | | | | | OF | | | | | | CARDIOLOGY | | + + + + + + | P-R | 135 | ms | [facility] | | | INTERVAL | | | OF | | | | | | CARDIOLOGY | | + + + + + + | P AXIS | 81 | deg | [facility] | | | | | | OF | | | | | | CARDIOLOGY | | + + + + + + | QRS | 125 | ms | [facility] | | | DURATION | | | OF | | | | | | CARDIOLOGY | | + + + + + + | QT | 444 | ms | [facility] | | | | | | OF | | | | | | CARDIOLOGY | | + + + + + + | QTC-BAZETT | 452 | ms | [facility] | | | | | | OF | | | | | | CARDIOLOGY | | + + + + + + | R AXIS | 80 | deg | [facility] | | | | | | OF | | | | | | CARDIOLOGY | | + + + + + + | T AXIS | 28 | deg | [facility] | | | | | | OF | | | | | | CARDIOLOGY | | + + + + + + | ECG | Sinus rhythm | | [facility] | | | IMPRESSION | | | OF | | | | | | CARDIOLOGY | | + + + + + + | ECG | Right bundle branch | | [facility] | | | IMPRESSION | block- ABNORMAL ECG - | | OF | | | | | | CARDIOLOGY | | + + + + + + | ECG | Electronically signed | | [facility] | | | IMPRESSION | by: GABRIELA VANN | | OF | | | | 10-23-2017 10:41:55 | | CARDIOLOGY | | + + + + + + + + | Specimen | + + | | + + + + + | Narrative | Performed At | + + + | | | + + + + + + + + | Performing | Address | City/State/Zipcode | Phone Number | | Organization | | | | + + + + + | [facility] | [address] | [place], [place] | | | CARDIOLOGY | [address] | [address] | | + + + + + IR GASTROSTOMY TUBE EXCHANGE (10/22/2017 2:42 PM PDT) + + | Specimen | + + | | + + + + + | Narrative | Performed At | + + + | Procedure: Gastrostomy tube exchange Primary attending | NCD[facility]ELLE | | travel agent: Shade Nix M.D. Preoperative diagnosis: | RADIOLOGY VOICE | | Malfunctioning Gastrostomy tube Postoperative diagnosis: Same | RECOGNITION | | Operations: Operation 1. Removal of existing Gastrostomy tube | | | over a guide wire Operation 2. Placement of 24 Iraqi GABRIEL | | | gastrostomy over guide wire No sedation was given. The patient was | | | monitored by Christie Duncan RN. Intra-service start time: 14:10 | | | Intra-service end time: 14:50 Indications: 67 year old male | | | requires gastrostomy tube exchange for nutritional management due to | | | reported rupture of the balloon of the gastrostomy tube. | | | Procedure: The patient, procedure, and allergies were confirmed in | | | the presence of the patient by the attending.The attending physician | | | was present for the entire procedure. Written informed consent was | | | obtained in a PARQ conference with the patient. The procedure was | | | performed with intravenous sedation. The patient was prepped and | | | draped in the usual manner. Contrast was injected in the gastrostomy | | | catheter. The existing Gastrostomy tube was removed over a guide wire. | | | Over a stiff glide wire the new 24 Iraqi gastrostomy tube was | | | inserted. The position of the new tube was confirmed with contrast | | | injection through both the gastric ports. The retention disc is at | | | marker No. 6 on the catheter. The retention balloon was inflated with | | | 8 ml of NS. Total fluoroscopic time: 1.2 minutes | | | Findings: Pre-existing Gastrostomy tube is in the stomach. | | | Replacement with new gastrostomy tube as described above. Of note the | | | balloon of the removed gastrostomy tube was not ruptured or damaged. | | | The 6 cm marker appeared optimal length for the new gastrostomy tube | | | although the disk of the old gastrostomy tube was positioned at 8 cm | | | in length. Impression: 1. Successful exchange for 24 Fr | | | GABRIEL gastrostomy tube, fixed the disk at 6 cm. 2. The balloon of the | | | removed gastrostomy tube was confirmed not broken. I have | | | personally reviewed the images and, if necessary, edited the report. | | | I agree with the report as now presented. | | + + + + + | Procedure Note | + + | Service Account, Radiant Res In Interface - 10/22/2017 4:59 PM PDT Procedure: | | Gastrostomy tube exchangePrimary attending travel agent: Shade Nix | | BrynPreoperative diagnosis: Malfunctioning Gastrostomy tubePostoperative diagnosis: | | SameOperations:Operation 1. Removal of existing Gastrostomy tube over a guide | | wireOperation 2. Placement of 24 Iraqi GABRIEL gastrostomy over guide wireNo sedation was | | given. The patient was monitored by Christie Duncan RN.Intra-service start time: | | 14:10Intra-service end time: 14:50Indications:67 year old male requires gastrostomy tube | | exchange for nutritional management due to reported rupture of the balloon of the | | gastrostomy tube.Procedure:The patient, procedure, and allergies were confirmed in the | | presence of the patient by the attending.The attending physician was present for the | | entire procedure. Written informed consent was obtained in a PARQ conference with the | | patient. The procedure was performed with intravenous sedation.The patient was prepped | | and draped in the usual manner. Contrast was injected in the gastrostomy catheter. The | | existing Gastrostomy tube was removed over a guide wire. Over a stiff glide wire the | | new 24 Iraqi gastrostomy tube was inserted. The position of the new tube was confirmed | | with contrast injection through both the gastric ports. The retention disc is at marker | | No. 6 on the catheter. The retention balloon was inflated with 8 ml of NS.Total | | fluoroscopic time: 1.2 minutes Findings:Pre-existing Gastrostomy tube is in the | | stomach. Replacement with new gastrostomy tube as described above.Of note the balloon of | | the removed gastrostomy tube was not ruptured or damaged. The 6 cm marker appeared | | optimal length for the new gastrostomy tube although the disk of the old gastrostomy | | tube was positioned at 8 cm in length. Impression:1. Successful exchange for 24 Fr GABRIEL | | gastrostomy tube, fixed the disk at 6 cm. 2. The balloon of the removed gastrostomy tube | | was confirmed not broken. I have personally reviewed the images and, if necessary, | | edited the report. I agree with the report as now presented. | |The patient, procedure, and allergies were confirmed in the presence of the patient by the attending.The attending physician was present for the entire procedure. Written informed con sent was obtained in a PARQ | |conference with the patient. The procedure was performed with intravenous sedation. | | | |The patient was prepped and draped in the usual manner. Contrast was injected in the gastro stomy catheter. The existing Gastrostomy tube was removed over a guide wire. Over a stiff g lide wire the new 24 Iraqi | |gastrostomy tube was inserted. The position of the new tube was confirmed with contrast in jection through both the gastric ports. The retention disc is at marker No. 6 on the cathete r. The retention balloon was inflated with 8 ml of NS. | | | |Total fluoroscopic time: 1.2 minutes | | | | | |Findings: | | | |Pre-existing Gastrostomy tube is in the stomach. Replacement with new gastrostomy tube as d escribed above. | |Of note the balloon of the removed gastrostomy tube was not ruptured or damaged. | |The 6 cm marker appeared optimal length for the new gastrostomy tube although the disk of t he old gastrostomy tube was positioned at 8 cm in length. | | | | | |Impression: | | | |1. Successful exchange for 24 Fr GABRIEL gastrostomy tube, fixed the disk at 6 cm. | |2. The balloon of the removed gastrostomy tube was confirmed not broken. | | | | | |I have personally reviewed the images and, if necessary, edited the report. I agree with t he report as now presented. | + + + +---------+ + + | Performing | Address | City/State/Zipcode | Phone Number | | Organization | | | | + +---------+ + + | [facility] | | | | | VOICE RECOGNITION | | | | + +---------+ + + VASC LAB VENOUS DUPLEX LOWER EXTREMITY BILAT COMP (10/22/2017 10:08 AM PDT) + + | Specimen | + + | | + + + + + | Narrative | Performed At | + + + | Bilateral: The duplex scanner was used to examine the deep and | [facility] | | superficial veins of the right and left lower extremities. The veins | RADIOLOGY VASC | | are patent bilaterally with normal flow and responses to augmentation | US | | and compression maneuvers and no thrombus is noted. | | | Conclusions: A normal venous examination of the bilateral lower | | | extremities. No venous thrombosis was detected. I have | | | personally reviewed the images and, if necessary, edited the report. | | | I agree with the report as now presented. | | + + + + + | Procedure Note | + + | Service Account, [employer] In Interface - 10/22/2017 10:34 AM PDT Bilateral: The | | duplex scanner was used to examine the deep and superficial veins of the right and left | | lower extremities. The veins are patent bilaterally with normal flow and responses to | | augmentation and compression maneuvers and no thrombus is noted.Conclusions: A normal | | venous examination of the bilateral lower extremities. No venous thrombosis was | | detected.I have personally reviewed the images and, if necessary, edited the report. I | | agree with the report as now presented. | | | | | |I have personally reviewed the images and, if necessary, edited the report. I agree with t he report as now presented. | + + + +---------+ + + | Performing | Address | City/State/Zipcode | Phone Number | | Organization | | | | + +---------+ + + | [facility] | | | | | VASC US | | | | + +---------+ + + 12 LEAD ECG (10/22/2017 9:45 AM PDT) + + + + + + | Component | Value | Ref Range | Performed | Pathologist | | | | | At | Signature | + + + + + + | VENTRICULAR | 60 | bpm | [facility] | | | RATE | | | OF | | | | | | CARDIOLOGY | | + + + + + + | ATRIAL RATE | 59 | ms | [facility] | | | | | | OF | | | | | | CARDIOLOGY | | + + + + + + | P-R | 174 | ms | [facility] | | | INTERVAL | | | OF | | | | | | CARDIOLOGY | | + + + + + + | P AXIS | 44 | deg | [facility] | | | | | | OF | | | | | | CARDIOLOGY | | + + + + + + | QRS | 125 | ms | [facility] | | | DURATION | | | OF | | | | | | CARDIOLOGY | | + + + + + + | QT | 450 | ms | [facility] | | | | | | OF | | | | | | CARDIOLOGY | | + + + + + + | QTC-BAZETT | 448 | ms | [facility] | | | | | | OF | | | | | | CARDIOLOGY | | + + + + + + | R AXIS | 61 | deg | [facility] | | | | | | OF | | | | | | CARDIOLOGY | | + + + + + + | T AXIS | 4 | deg | [facility] | | | | | | OF | | | | | | CARDIOLOGY | | + + + + + + | ECG | Sinus rhythm | | [facility] | | | IMPRESSION | | | OF | | | | | | CARDIOLOGY | | + + + + + + | ECG | Right bundle branch | | [facility] | | | IMPRESSION | block- ABNORMAL ECG - | | OF | | | | | | CARDIOLOGY | | + + + + + + | ECG | Electronically signed | | [facility] | | | IMPRESSION | by: AJAY DE LOS SANTOS | | OF | | | | 10-22-2017 14:01:24 | | CARDIOLOGY | | + + + + + + + + | Specimen | + + | | + + + + + | Narrative | Performed At | + + + | | | + + + + + + + + | Performing | Address | City/State/Zipcode | Phone Number | | Organization | | | | + + + + + | [facility] | [address] | [place], [place] | | | CARDIOLOGY | [address] | [address] | | + + + + + CT ABDOMEN AND PELVIS W IV CONTRAST (10/22/2017 3:56 AM PDT) + + | Specimen | + + | | + + + + + | Narrative | Performed At | + + + | EXAM: CT of the abdomen and pelvis WITH intravenous contrast. | [facility] | | HISTORY: Evaluate for gastrostomy tube leak. COMPARISON: 10/12/2017 | RADIOLOGY VOICE | | CT TECHNIQUE: CT of the abdomen and pelvis with non-ionic | RECOGNITION 2 | | iodinated intravenous contrast. Coronal and sagittal reformats were | | | generated and reviewed. FINDINGS: LOWER THORAX: Compared to | | | 10/12/2017, left lower lobe consolidation has mostly resolved. | | | Bibasilar atelectasis is noted. Otherwise, unremarkable. LIVER: | | | Unremarkable. BILIARY: Tiny gallstone within the gallbladder. | | | PANCREAS: Unremarkable. SPLEEN: Resolved perisplenic fluid. | | | Posterior splenic cleft is again noted, likely representing a small | | | laceration. Left upper quadrant tiny metallic density is again noted. | | | ADRENALS: Stable bilateral adrenal nodularity. KIDNEYS/URETERS: Tiny | | | punctate, nonobstructive right renal stone. PELVIC ORGANS/BLADDER: | | | Unremarkable. GI TRACT: A gastrostomy tube is seen with the tip in | | | the region of the greater sac, in proximity to but not definitely | | | seen within the gastric body, however contrast is noted within the | | | gastric fundus. The gastrostomy balloon is not inflated. | | | PERITONEUM: An anterior abdominal surgical KENDALL drain is in place within | | | an irregular gas and fluid collection anterior to the gastric antrum | | | (axial images 57 through 71). Enteric contrast is seen throughout this | | | collection. Scattered residual pneumoperitoneum is noted. LYMPH | | | NODES: No lymphadenopathy. VESSELS: Unremarkable. BONES AND SOFT | | | TISSUES: An anterior abdominal incision wound is redemonstrated. A | | | partially visualized intramedullary nail screw fixation of a proximal | | | left femoral fracture is again seen. Multiple bilateral rib fractures, | | | T12 vertebral body fracture, and pelvic fractures are again noted, | | | similar to prior. IMPRESSION: Repositioned gastrostomy tube | | | with contrast in the gastric fundus, confirming communication with the | | | gastric lumen. Additional contrast filling of an irregular gas | | | and fluid collection anterior to the gastric antrum with KENDALL drain in | | | place. This raises concern for intraperitoneal gastrostomy tube leak, | | | possibly due to an underinflated gastrostomy tube balloon. | | | Significant results were discussed with Dr. Talavera on 10/22/2017 | | | 4:30 AM by Dae Izaguirre MD. I have personally reviewed the images | | | and, if necessary, edited the report. I agree with the report as now | | | presented. Final signature: Juice Georges MD 10/22/2017 | | | 8:05 AM Preliminary: Dae Izaguirre MD Dictation initiated: | | | Dae Izaguirre MD 10/22/2017 4:15 AM | | + + + + + | Procedure Note | + + | Service Account, Radiant Res In Interface - 10/22/2017 8:06 AM PDT EXAM: CT of the | | abdomen and pelvis WITH intravenous contrast. HISTORY: Evaluate for gastrostomy tube | | leak. COMPARISON: 10/12/2017 CT TECHNIQUE: CT of the abdomen and pelvis with non-ionic | | iodinated intravenous contrast. Coronal and sagittal reformats were generated and | | reviewed. FINDINGS:LOWER THORAX: Compared to 10/12/2017, left lower lobe consolidation | | has mostly resolved. Bibasilar atelectasis is noted. Otherwise, unremarkable. LIVER: | | Unremarkable.BILIARY: Tiny gallstone within the gallbladder.PANCREAS: Unremarkable. | | SPLEEN: Resolved perisplenic fluid. Posterior splenic cleft is again noted, likely | | representing a small laceration. Left upper quadrant tiny metallic density is again | | noted.ADRENALS: Stable bilateral adrenal nodularity.KIDNEYS/URETERS: Tiny punctate, | | nonobstructive right renal stone.PELVIC ORGANS/BLADDER: Unremarkable. GI TRACT: A | | gastrostomy tube is seen with the tip in the region of the greater sac, in proximity to | | but not definitely seen within the gastric body, however contrast is noted within the | | gastric fundus. The gastrostomy balloon is not inflated. PERITONEUM: An anterior | | abdominal surgical KENDALL drain is in place within an irregular gas and fluid collection | | anterior to the gastric antrum (axial images 57 through 71). Enteric contrast is seen | | throughout this collection. Scattered residual pneumoperitoneum is noted. LYMPH NODES: | | No lymphadenopathy.VESSELS: Unremarkable. BONES AND SOFT TISSUES: An anterior abdominal | | incision wound is redemonstrated. A partially visualized intramedullary nail screw | | fixation of a proximal left femoral fracture is again seen. Multiple bilateral rib | | fractures, T12 vertebral body fracture, and pelvic fractures are again noted, similar to | | prior. IMPRESSION: Repositioned gastrostomy tube with contrast in the gastric fundus, | | confirming communication with the gastric lumen. Additional contrast filling of an | | irregular gas and fluid collection anterior to the gastric antrum with KENDALL drain in | | place. This raises concern for intraperitoneal gastrostomy tube leak, possibly due to an | | underinflated gastrostomy tube balloon. Significant results were discussed with | | Ilan on 10/22/2017 4:30 AM by Dae Izaguirre MD. I have personally reviewed the | | images and, if necessary, edited the report. I agree with the report as now presented. | | Final signature: Juice Georges MD 10/22/2017 8:05 AM Preliminary: Dae Izaguirre MD | | Dictation initiated: Dae Izaguirre MD 10/22/2017 4:15 AM | | | |IMPRESSION: | | | |Repositioned gastrostomy tube with contrast in the gastric fundus, confirming communication with the gastric lumen. | | | |Additional contrast filling of an irregular gas and fluid collection anterior to the gastri c antrum with KENDALL drain in place. This raises concern for intraperitoneal gastrostomy tube le ak, possibly due to an underinflated gastrostomy tube balloon. | | | |Significant results were discussed with Dr. Talavera on 10/22/2017 4:30 AM by Dae Izaguirre MD. | | | |I have personally reviewed the images and, if necessary, edited the report. I agree with th e report as now presented. | | | |Final signature: Juice Georges MD 10/22/2017 8:05 AM | |Preliminary: Dae Izaguirre MD | |Dictation initiated: Dae Izaguirre MD 10/22/2017 4:15 AM | + + + +---------+ + + | Performing | Address | City/State/Zipcode | Phone Number | | Organization | | | | + +---------+ + + | [facility] | | | | | VOICE RECOGNITION 2 | | | | + +---------+ + + CBC (HEMOGRAM) ONLY (10/22/2017 1:15 AM PDT) + + + + + + | Component | Value | Ref Range | Performed | Pathologist | | | | | At | Signature | + + + + + + | WHITE CELL | 14.15 (H) | 3.50 - 10.80 | [facility] | | | COUNT | | K/cu mm | LABORATORY | | | | | | SERVICES, | | | | | | CORE | | + + + + + + | RED CELL | 3.32 (L) | 4.50 - 6.00 | [facility] | | | COUNT | | M/cu mm | LABORATORY | | | | | | SERVICES, | | | | | | CORE | | + + + + + + | HEMOGLOBIN | 9.9 (L) | 13.5 - 17.5 | [facility] | | | | | g/dL | LABORATORY | | | | | | SERVICES, | | | | | | CORE | | + + + + + + | HEMATOCRIT | 30.6 (L) | 41.0 - 53.0 % | [facility] | | | | | | LABORATORY | | | | | | SERVICES, | | | | | | CORE | | + + + + + + | MCV | 92.2 | 80.0 - 100.0 fL | [facility] | | | | | | LABORATORY | | | | | | SERVICES, | | | | | | CORE | | + + + + + + | MCHC | 32.4 | 32.0 - 36.0 | [facility] | | | | | g/dL | LABORATORY | | | | | | SERVICES, | | | | | | CORE | | + + + + + + | RDW SD | 55.3 (H) | 35.1 - 46.3 fL | [facility] | | | | | | LABORATORY | | | | | | SERVICES, | | | | | | CORE | | + + + + + + | PLATELET | 383 | 150 - 400 K/cu | [facility] | | | COUNT | | mm | LABORATORY | | | | | | SERVICES, | | | | | | CORE | | + + + + + + | MPV | 8.3 (L) | 9.7 - 12.3 fL | [facility] | | | | | | LABORATORY | | | | | | SERVICES, | | | | | | CORE | | + + + + + + | NRBC% | 0.0 | 0.0 - 0.3 % | [facility] | | | | | | LABORATORY | | | | | | SERVICES, | | | | | | CORE | | + + + + + + | NRBC# | 0.00 | 0.00 - 0.02 | [facility] | | | | | K/cu mm | LABORATORY | | | | | | SERVICES, | | | | | | CORE | | + + + + + + + + | Specimen | + + | Blood - Blood | | (substance) | + + + + + | Narrative | Performed At | + + + | New reference ranges for MCV, MCHC, PLT, IG% and IG# effective | [facility] | | 09/05/2017 | LABORATORY | | | SERVICES, CORE | + + + + + + + + | Performing | Address | City/State/Zipcode | Phone Number | | Organization | | | | + + + + + | [facility] | [address] | [place] [address] | | | SERVICES, CORE | [address] | | | + + + + + BASIC METABOLIC SET (NA, K, CL, TCO2, BUN, CR, GLU, CA) (10/22/2017 1:15 AM PDT) + + + + + + | Component | Value | Ref Range | Performed | Pathologist | | | | | At | Signature | + + + + + + | GLUCOSE, | 101 (H) | 70 - 99 mg/dL | [facility] | | | PLASMA | | | LABORATORY | | | (LAB) | | | SERVICES, | | | | | | CORE | | + + + + + + | BUN, PLASMA | 10 | 6 - 20 mg/dL | [facility] | | | (LAB) | | | LABORATORY | | | | | | SERVICES, | | | | | | CORE | | + + + + + + | CREATININE | 0.47 (L) | 0.70 - 1.30 | [facility] | | | PLASMA | | mg/dL | LABORATORY | | | (LAB) | | | SERVICES, | | | | | | CORE | | + + + + + + | EGFR | >60 | >60 mL/min | [facility] | | | - | | | LABORATORY | | | SUDANESE | | | SERVICES, | | | | | | CORE | | + + + + + + | EGFR NON | >60 | >60 mL/min | [facility] | | | -KAYE | | | LABORATORY | | | RICAN | | | SERVICES, | | | | | | CORE | | + + + + + + | SODIUM, | 142 | 136 - 145 | [facility] | | | PLASMA | | mmol/L | LABORATORY | | | (LAB) | | | SERVICES, | | | | | | CORE | | + + + + + + | POTASSIUM, | 3.6 | 3.4 - 5.0 | [facility] | | | PLASMA | | mmol/L | LABORATORY | | | (LAB) | | | SERVICES, | | | | | | CORE | | + + + + + + | CHLORIDE, | 107 | 97 - 108 mmol/L | [facility] | | | PLASMA | | | LABORATORY | | | (LAB) | | | SERVICES, | | | | | | CORE | | + + + + + + | TOTAL CO2, | 26 | 21 - 32 mmol/L | [facility] | | | PLASMA | | | LABORATORY | | | (LAB) | | | SERVICES, | | | | | | CORE | | + + + + + + | CALCIUM, | 8.9 | 8.6 - 10.2 | [facility] | | | PLASMA | | mg/dL | LABORATORY | | | (LAB) | | | SERVICES, | | | | | | CORE | | + + + + + + | ANION GAP | 9 | 4 - 11 mmol/L | [facility] | | | | | | LABORATORY | | | | | | SERVICES, | | | | | | CORE | | + + + + + + | POTASSIUM | No Hemo | | [facility] | | | CMNT | | | LABORATORY | | | | | | SERVICES, | | | | | | CORE | | + + + + + + + + | Specimen | + + | Blood - Blood | | (substance) | + + + + + | Narrative | Performed At | + + + | GFR is estimated using the MDRD equation recommended by the | [facility] | | National Kidney Disease Education Program. Estimated GFR | LABORATORY | | Interpretive Information: <60 mL/min/1.73 sq m | SERVICES, CORE | | Chronic Kidney Disease <15 mL/min/1.73 sq m | | | Kidney Failure Estimated GFR greater that 60 mL/min/1.73 sq m is of | | | limited clinical value. The MDRD equation is not valid in the | | | following situations: - Patients under 18 years of age - Severe | | | malnutrition or obesity - Vegetarian diet - Rapidly changing kidney | | | function - Amputees, paraplegics, or other muscle-wasting diseses | | + + + + + + + + | Performing | Address | City/State/Zipcode | Phone Number | | Organization | | | | + + + + + | [facility] | [address] | [place] [address] | | | ELIN, NATALEE | [address] | | | + + + + + 12 LEAD ECG (10/21/2017 2:12 PM PDT) + + + + + + | Component | Value | Ref Range | Performed | Pathologist | | | | | At | Signature | + + + + + + | VENTRICULAR | 61 | bpm | [facility] | | | RATE | | | OF | | | | | | CARDIOLOGY | | + + + + + + | ATRIAL RATE | 61 | ms | [facility] | | | | | | OF | | | | | | CARDIOLOGY | | + + + + + + | P-R | 129 | ms | [facility] | | | INTERVAL | | | OF | | | | | | CARDIOLOGY | | + + + + + + | P AXIS | 67 | deg | [facility] | | | | | | OF | | | | | | CARDIOLOGY | | + + + + + + | QRS | 122 | ms | [facility] | | | DURATION | | | OF | | | | | | CARDIOLOGY | | + + + + + + | QT | 449 | ms | [facility] | | | | | | OF | | | | | | CARDIOLOGY | | + + + + + + | QTC-BAZETT | 454 | ms | [facility] | | | | | | OF | | | | | | CARDIOLOGY | | + + + + + + | R AXIS | 75 | deg | [facility] | | | | | | OF | | | | | | CARDIOLOGY | | + + + + + + | T AXIS | 13 | deg | [facility] | | | | | | OF | | | | | | CARDIOLOGY | | + + + + + + | ECG | Sinus rhythm | | [facility] | | | IMPRESSION | | | OF | | | | | | CARDIOLOGY | | + + + + + + | ECG | Right bundle branch | | [facility] | | | IMPRESSION | block- ABNORMAL ECG - | | OF | | | | | | CARDIOLOGY | | + + + + + + | ECG | Electronically signed | | [facility] | | | IMPRESSION | by: JULIO VIZCAINO | | OF | | | | 10-21-2017 18:00:01 | | CARDIOLOGY | | + + + + + + + + | Specimen | + + | | + + + + + | Narrative | Performed At | + + + | | | + + + + + + + + | Performing | Address | City/State/Zipcode | Phone Number | | Organization | | | | + + + + + | [facility] | [address] | [place], [place] | | | CARDIOLOGY | [address] | [phone] | | + + + + + RENAL FUNCTION SET (NA,K,CL,CO2,BUN,CREAT,GLUC,CA,PHOS,ALB ) (10/21/2017 7:56 AM PDT) + + + + + + | Component | Value | Ref Range | Performed | Pathologist | | | | | At | Signature | + + + + + + | GLUCOSE, | 109 (H) | 70 - 99 mg/dL | [facility] | | | PLASMA | | | LABORATORY | | | (LAB) | | | SERVICES, | | | | | | CORE | | + + + + + + | BUN, PLASMA | 10 | 6 - 20 mg/dL | [facility] | | | (LAB) | | | LABORATORY | | | | | | SERVICES, | | | | | | CORE | | + + + + + + | CREATININE | 0.57 (L) | 0.70 - 1.30 | [facility] | | | PLASMA | | mg/dL | LABORATORY | | | (LAB) | | | SERVICES, | | | | | | CORE | | + + + + + + | EGFR | >60 | >60 mL/min | [facility] | | | - | | | LABORATORY | | | SUDANESE | | | SERVICES, | | | | | | CORE | | + + + + + + | EGFR NON | >60 | >60 mL/min | [facility] | | | -KAYE | | | LABORATORY | | | RICAN | | | SERVICES, | | | | | | CORE | | + + + + + + | SODIUM, | 141 | 136 - 145 | [facility] | | | PLASMA | | mmol/L | LABORATORY | | | (LAB) | | | SERVICES, | | | | | | CORE | | + + + + + + | POTASSIUM, | 3.6 | 3.4 - 5.0 | [facility] | | | PLASMA | | mmol/L | LABORATORY | | | (LAB) | | | SERVICES, | | | | | | CORE | | + + + + + + | CHLORIDE, | 107 | 97 - 108 mmol/L | [facility] | | | PLASMA | | | LABORATORY | | | (LAB) | | | SERVICES, | | | | | | CORE | | + + + + + + | TOTAL CO2, | 27 | 21 - 32 mmol/L | [facility] | | | PLASMA | | | LABORATORY | | | (LAB) | | | SERVICES, | | | | | | CORE | | + + + + + + | CALCIUM, | 8.6 | 8.6 - 10.2 | [facility] | | | PLASMA | | mg/dL | LABORATORY | | | (LAB) | | | SERVICES, | | | | | | CORE | | + + + + + + | CALCIUM(ALB | 9.8 | 8.6 - 10.2 | [facility] | | | CORRECTED) | | mg/dL | LABORATORY | | | | | | SERVICES, | | | | | | CORE | | + + + + + + | ALBUMIN, | 2.5 (L) | 3.5 - 4.7 g/dL | [facility] | | | PLASMA | | | LABORATORY | | | (LAB) | | | SERVICES, | | | | | | CORE | | + + + + + + | PHOSPHORUS, | 4.2 | 2.4 - 4.7 mg/dL | [facility] | | | PLASMA | | | LABORATORY | | | (LAB) | | | SERVICES, | | | | | | CORE | | + + + + + + | POTASSIUM | No Hemo | | [facility] | | | CMNT | | | LABORATORY | | | | | | SERVICES, | | | | | | CORE | | + + + + + + | ANION GAP | 7 | 4 - 11 mmol/L | [facility] | | | | | | LABORATORY | | | | | | SERVICES, | | | | | | CORE | | + + + + + + | ANION | 10 | 4 - 11 mmol/L | [facility] | | | GAP(ALB | | | LABORATORY | | | CORRECTED) | | | SERVICES, | | | | | | CORE | | + + + + + + + + | Specimen | + + | Blood - Blood | | (substance) | + + + + + | Narrative | Performed At | + + + | GFR is estimated using the MDRD equation recommended by the | [facility] | | National Kidney Disease Education Program. Estimated GFR | LABORATORY | | Interpretive Information: <60 mL/min/1.73 sq m | SERVICES, CORE | | Chronic Kidney Disease <15 mL/min/1.73 sq m | | | Kidney Failure Estimated GFR greater that 60 mL/min/1.73 sq m is of | | | limited clinical value. The MDRD equation is not valid in the | | | following situations: - Patients under 18 years of age - Severe | | | malnutrition or obesity - Vegetarian diet - Rapidly changing kidney | | | function - Amputees, paraplegics, or other muscle-wasting diseses | | + + + + + + + + | Performing | Address | City/State/Zipcode | Phone Number | | Organization | | | | + + + + + | [facility] | [address] | [place] [address] | | | SERVICES, CORE | [address] | | | + + + + + MAGNESIUM, PLASMA (10/21/2017 7:56 AM PDT) + +-------+ + + + | Component | Value | Ref Range | Performed | Pathologist | | | | | At | Signature | + +-------+ + + + | MAGNESIUM,P | 2.2 | 1.6 - 2.6 mg/dL | [facility] | | | LASMA | | | LABORATORY | | | | | | ELIN, | | | | | | CORE | | + +-------+ + + + + + | Specimen | + + | Blood - Blood | | (substance) | + + + + + | Narrative | Performed At | + + + | Reference range change effective 12/11/16. | [facility] | | | LABORATORY | | | SERVICES, CORE | + + + + + + + + | Performing | Address | City/State/Zipcode | Phone Number | | Organization | | | | + + + + + | [facility] | [address] | [place] [address] | | | SERVICES, CORE | [address] | | | + + + + + 12 LEAD ECG (10/19/2017 12:23 PM PDT) + + + + + + | Component | Value | Ref Range | Performed | Pathologist | | | | | At | Signature | + + + + + + | VENTRICULAR | 53 | bpm | [facility] | | | RATE | | | OF | | | | | | CARDIOLOGY | | + + + + + + | ATRIAL RATE | 53 | ms | [facility] | | | | | | OF | | | | | | CARDIOLOGY | | + + + + + + | P-R | 128 | ms | [facility] | | | INTERVAL | | | OF | | | | | | CARDIOLOGY | | + + + + + + | P AXIS | 81 | deg | [facility] | | | | | | OF | | | | | | CARDIOLOGY | | + + + + + + | QRS | 126 | ms | [facility] | | | DURATION | | | OF | | | | | | CARDIOLOGY | | + + + + + + | QT | 466 | ms | [facility] | | | | | | OF | | | | | | CARDIOLOGY | | + + + + + + | QTC-BAZETT | 438 | ms | [facility] | | | | | | OF | | | | | | CARDIOLOGY | | + + + + + + | R AXIS | 70 | deg | [facility] | | | | | | OF | | | | | | CARDIOLOGY | | + + + + + + | T AXIS | 19 | deg | [facility] | | | | | | OF | | | | | | CARDIOLOGY | | + + + + + + | ECG | Sinus bradycardia | | [facility] | | | IMPRESSION | | | OF | | | | | | CARDIOLOGY | | + + + + + + | ECG | Right bundle branch | | [facility] | | | IMPRESSION | block | | OF | | | | | | CARDIOLOGY | | + + + + + + | ECG | Minimal ST elevation, | | [facility] | | | IMPRESSION | anterior leads- ABNORMAL | | OF | | | | ECG - | | CARDIOLOGY | | + + + + + + | ECG | Electronically signed | | [facility] | | | IMPRESSION | by: JULIO VIZCAINO | | OF | | | | 10-20-2017 12:10:47 | | CARDIOLOGY | | + + + + + + + + | Specimen | + + | | + + + + + | Narrative | Performed At | + + + | | | + + + + + + + + | Performing | Address | City/State/Zipcode | Phone Number | | Organization | | | | + + + + + | [facility] | [address] | [place], [place] | | | CARDIOLOGY | [address] | [address] | | + + + + + MAGNESIUM, PLASMA (10/18/2017 9:01 AM PDT) + +-------+ + + + | Component | Value | Ref Range | Performed | Pathologist | | | | | At | Signature | + +-------+ + + + | MAGNESIUM,P | 1.9 | 1.6 - 2.6 mg/dL | [facility] | | | LASMA | | | LABORATORY | | | | | | SERVICES, | | | | | | CORE | | + +-------+ + + + + + | Specimen | + + | Blood - Blood | | (substance) | + + + + + | Narrative | Performed At | + + + | Reference range change effective 12/11/16. | [facility] | | | LABORATORY | | | SERVICES, CORE | + + + + + + + + | Performing | Address | City/State/Zipcode | Phone Number | | Organization | | | | + + + + + | [facility] | [address] | [place] [address] | | | SERVICES, CORE | [address] | | | + + + + + RENAL FUNCTION SET (NA,K,CL,CO2,BUN,CREAT,GLUC,CA,PHOS,ALB ) (10/18/2017 9:01 AM PDT) + + + + + + | Component | Value | Ref Range | Performed | Pathologist | | | | | At | Signature | + + + + + + | GLUCOSE, | 114 (H) | 70 - 99 mg/dL | [facility] | | | PLASMA | | | LABORATORY | | | (LAB) | | | SERVICES, | | | | | | CORE | | + + + + + + | BUN, PLASMA | 8 | 6 - 20 mg/dL | [facility] | | | (LAB) | | | LABORATORY | | | | | | SERVICES, | | | | | | CORE | | + + + + + + | CREATININE | 0.45 (L) | 0.70 - 1.30 | [facility] | | | PLASMA | | mg/dL | LABORATORY | | | (LAB) | | | SERVICES, | | | | | | CORE | | + + + + + + | EGFR | >60 | >60 mL/min | [facility] | | | - | | | LABORATORY | | | SUDANESE | | | SERVICES, | | | | | | CORE | | + + + + + + | EGFR NON | >60 | >60 mL/min | [facility] | | | -KAYE | | | LABORATORY | | | RICAN | | | SERVICES, | | | | | | CORE | | + + + + + + | SODIUM, | 135 (L) | 136 - 145 | [facility] | | | PLASMA | | mmol/L | LABORATORY | | | (LAB) | | | SERVICES, | | | | | | CORE | | + + + + + + | POTASSIUM, | 3.7 | 3.4 - 5.0 | [facility] | | | PLASMA | | mmol/L | LABORATORY | | | (LAB) | | | SERVICES, | | | | | | CORE | | + + + + + + | CHLORIDE, | 107 | 97 - 108 mmol/L | [facility] | | | PLASMA | | | LABORATORY | | | (LAB) | | | SERVICES, | | | | | | CORE | | + + + + + + | TOTAL CO2, | 21 | 21 - 32 mmol/L | [facility] | | | PLASMA | | | LABORATORY | | | (LAB) | | | SERVICES, | | | | | | CORE | | + + + + + + | CALCIUM, | 8.1 (L) | 8.6 - 10.2 | [facility] | | | PLASMA | | mg/dL | LABORATORY | | | (LAB) | | | SERVICES, | | | | | | CORE | | + + + + + + | CALCIUM(ALB | 9.7 | 8.6 - 10.2 | [facility] | | | CORRECTED) | | mg/dL | LABORATORY | | | | | | SERVICES, | | | | | | CORE | | + + + + + + | ALBUMIN, | 2.0 (L) | 3.5 - 4.7 g/dL | [facility] | | | PLASMA | | | LABORATORY | | | (LAB) | | | SERVICES, | | | | | | CORE | | + + + + + + | PHOSPHORUS, | 3.3 | 2.4 - 4.7 mg/dL | [facility] | | | PLASMA | | | LABORATORY | | | (LAB) | | | SERVICES, | | | | | | CORE | | + + + + + + | POTASSIUM | No Hemo | | [facility] | | | CMNT | | | LABORATORY | | | | | | SERVICES, | | | | | | CORE | | + + + + + + | ANION GAP | 7 | 4 - 11 mmol/L | [facility] | | | | | | LABORATORY | | | | | | SERVICES, | | | | | | CORE | | + + + + + + | ANION | 12 (H) | 4 - 11 mmol/L | [facility] | | | GAP(ALB | | | LABORATORY | | | CORRECTED) | | | SERVICES, | | | | | | CORE | | + + + + + + + + | Specimen | + + | Blood - Blood | | (substance) | + + + + + | Narrative | Performed At | + + + | GFR is estimated using the MDRD equation recommended by the | [facility] | | National Kidney Disease Education Program. Estimated GFR | LABORATORY | | Interpretive Information: <60 mL/min/1.73 sq m | SERVICES, CORE | | Chronic Kidney Disease <15 mL/min/1.73 sq m | | | Kidney Failure Estimated GFR greater that 60 mL/min/1.73 sq m is of | | | limited clinical value. The MDRD equation is not valid in the | | | following situations: - Patients under 18 years of age - Severe | | | malnutrition or obesity - Vegetarian diet - Rapidly changing kidney | | | function - Amputees, paraplegics, or other muscle-wasting diseses | | + + + + + + + + | Performing | Address | City/State/Zipcode | Phone Number | | Organization | | | | + + + + + | [facility] | [address] | [place] [address] | | | [place]EE [place] | [address] | | | + + + + + 12 LEAD ECG (10/17/2017 9:34 AM PDT) + + + + + + | Component | Value | Ref Range | Performed | Pathologist | | | | | At | Signature | + + + + + + | VENTRICULAR | 58 | bpm | [facility] | | | RATE | | | OF | | | | | | CARDIOLOGY | | + + + + + + | ATRIAL RATE | 58 | ms | [facility] | | | | | | OF | | | | | | CARDIOLOGY | | + + + + + + | P-R | 128 | ms | [facility] | | | INTERVAL | | | OF | | | | | | CARDIOLOGY | | + + + + + + | P AXIS | 50 | deg | [facility] | | | | | | OF | | | | | | CARDIOLOGY | | + + + + + + | QRS | 131 | ms | [facility] | | | DURATION | | | OF | | | | | | CARDIOLOGY | | + + + + + + | QT | 467 | ms | [facility] | | | | | | OF | | | | | | CARDIOLOGY | | + + + + + + | LAUREN | 459 | ms | [facility] | | | | | | OF | | | | | | CARDIOLOGY | | + + + + + + | R AXIS | 79 | deg | [facility] | | | | | | OF | | | | | | CARDIOLOGY | | + + + + + + | T AXIS | 26 | deg | [facility] | | | | | | OF | | | | | | CARDIOLOGY | | + + + + + + | ECG | Sinus bradycardia | | [facility] | | | IMPRESSION | | | OF | | | | | | CARDIOLOGY | | + + + + + + | ECG | Right bundle branch | | [facility] | | | IMPRESSION | block- ABNORMAL ECG - | | OF | | | | | | CARDIOLOGY | | + + + + + + | ECG | Electronically signed | | [facility] | | | IMPRESSION | by: AJAY DE LOS SANTOS | | OF | | | | 10-17-2017 12:36:44 | | CARDIOLOGY | | + + + + + + + + | Specimen | + + | | + + + + + | Narrative | Performed At | + + + | | | + + + + + + + + | Performing | Address | City/State/Zipcode | Phone Number | | Organization | | | | + + + + + | [facility] | [address] | [place], [place] | | | CARDIOLOGY | [address] | [address] | | + + + + + RENAL FUNCTION SET (NA,K,CL,CO2,BUN,CREAT,GLUC,CA,PHOS,ALB ) (10/17/2017 4:58 AM PDT) + + + + + + | Component | Value | Ref Range | Performed | Pathologist | | | | | At | Signature | + + + + + + | GLUCOSE, | 104 (H) | 70 - 99 mg/dL | [facility] | | | PLASMA | | | LABORATORY | | | (LAB) | | | SERVICES, | | | | | | CORE | | + + + + + + | BUN, PLASMA | 8 | 6 - 20 mg/dL | [facility] | | | (LAB) | | | LABORATORY | | | | | | SERVICES, | | | | | | CORE | | + + + + + + | CREATININE | 0.47 (L) | 0.70 - 1.30 | [facility] | | | PLASMA | | mg/dL | LABORATORY | | | (LAB) | | | SERVICES, | | | | | | CORE | | + + + + + + | EGFR | >60 | >60 mL/min | [facility] | | | - | | | LABORATORY | | | [facility] | | | SERVICES, | | | | | | CORE | | + + + + + + | EGFR NON | >60 | >60 mL/min | [facility] | | | -[facility] | | | LABORATORY | | | R[facility] | | | SERVICES, | | | | | | CORE | | + + + + + + | SODIUM, | 140 | 136 - 145 | [facility] | | | PLASMA | | mmol/L | LABORATORY | | | (LAB) | | | SERVICES, | | | | | | CORE | | + + + + + + | POTASSIUM, | 3.2 (L) | 3.4 - 5.0 | [facility] | | | PLASMA | | mmol/L | LABORATORY | | | (LAB) | | | SERVICES, | | | | | | CORE | | + + + + + + | CHLORIDE, | 106 | 97 - 108 mmol/L | [facility] | | | PLASMA | | | LABORATORY | | | (LAB) | | | SERVICES, | | | | | | CORE | | + + + + + + | TOTAL CO2, | 26 | 21 - 32 mmol/L | [facility] | | | PLASMA | | | LABORATORY | | | (LAB) | | | SERVICES, | | | | | | CORE | | + + + + + + | CALCIUM, | 8.1 (L) | 8.6 - 10.2 | [facility] | | | PLASMA | | mg/dL | LABORATORY | | | (LAB) | | | SERVICES, | | | | | | CORE | | + + + + + + | CALCIUM(ALB | 9.4 | 8.6 - 10.2 | [facility] | | | CORRECTED) | | mg/dL | LABORATORY | | | | | | SERVICES, | | | | | | CORE | | + + + + + + | ALBUMIN, | 2.4 (L) | 3.5 - 4.7 g/dL | [facility] | | | PLASMA | | | LABORATORY | | | (LAB) | | | SERVICES, | | | | | | CORE | | + + + + + + | PHOSPHORUS, | 3.6 | 2.4 - 4.7 mg/dL | [facility] | | | PLASMA | | | LABORATORY | | | (LAB) | | | SERVICES, | | | | | | CORE | | + + + + + + | POTASSIUM | No Hemo | | [facility] | | | CMNT | | | LABORATORY | | | | | | SERVICES, | | | | | | CORE | | + + + + + + | ANION GAP | 8 | 4 - 11 mmol/L | [facility] | | | | | | LABORATORY | | | | | | SERVICES, | | | | | | CORE | | + + + + + + | ANION | 12 (H) | 4 - 11 mmol/L | [facility] | | | GAP(ALB | | | LABORATORY | | | CORRECTED) | | | SERVICES, | | | | | | CORE | | + + + + + + + + | Specimen | + + | Blood - Blood | | (substance) | + + + + + | Narrative | Performed At | + + + | GFR is estimated using the MDRD equation recommended by the | [facility] | | National Kidney Disease Education Program. Estimated GFR | LABORATORY | | Interpretive Information: <60 mL/min/1.73 sq m | SERVICES, CORE | | Chronic Kidney Disease <15 mL/min/1.73 sq m | | | Kidney Failure Estimated GFR greater that 60 mL/min/1.73 sq m is of | | | limited clinical value. The MDRD equation is not valid in the | | | following situations: - Patients under 18 years of age - Severe | | | malnutrition or obesity - Vegetarian diet - Rapidly changing kidney | | | function - Amputees, paraplegics, or other muscle-wasting diseses | | + + + + + + + + | Performing | Address | City/State/Zipcode | Phone Number | | Organization | | | | + + + + + | [facility] | [address] | [place] [address] | | | SERVICES, CORE | [address] | | | + + + + + MAGNESIUM, PLASMA (10/17/2017 4:58 AM PDT) + +-------+ + + + | Component | Value | Ref Range | Performed | Pathologist | | | | | At | Signature | + +-------+ + + + | MAGNESIUM,P | 2.0 | 1.6 - 2.6 mg/dL | [facility] | | | LASMA | | | LABORATORY | | | | | | SERVICES, | | | | | | CORE | | + +-------+ + + + + + | Specimen | + + | Blood - Blood | | (substance) | + + + + + | Narrative | Performed At | + + + | Reference range change effective 12/11/16. | [facility] | | | LABORATORY | | | [place] [place] | + + + + + + + + | Performing | Address | City/State/Zipcode | Phone Number | | Organization | | | | + + + + + | [facility] | [address] | [place] [address] | | | SERVICES, NATALEE | [address] | | | + + + + + 12 LEAD ECG (10/16/2017 11:23 AM PDT) + + + + + + | Component | Value | Ref Range | Performed | Pathologist | | | | | At | Signature | + + + + + + | VENTRICULAR | 63 | bpm | [facility] | | | RATE | | | OF | | | | | | CARDIOLOGY | | + + + + + + | ATRIAL RATE | 63 | ms | [facility] | | | | | | OF | | | | | | CARDIOLOGY | | + + + + + + | P-R | 145 | ms | [facility] | | | INTERVAL | | | OF | | | | | | CARDIOLOGY | | + + + + + + | P AXIS | 56 | deg | [facility] | | | | | | OF | | | | | | CARDIOLOGY | | + + + + + + | QRS | 135 | ms | [facility] | | | DURATION | | | OF | | | | | | CARDIOLOGY | | + + + + + + | QT | 464 | ms | [facility] | | | | | | OF | | | | | | CARDIOLOGY | | + + + + + + | QTC-BABRAYDONTT | 476 | ms | [facility] | | | | | | OF | | | | | | CARDIOLOGY | | + + + + + + | R AXIS | 77 | deg | [facility] | | | | | | OF | | | | | | CARDIOLOGY | | + + + + + + | T AXIS | 42 | deg | [facility] | | | | | | OF | | | | | | CARDIOLOGY | | + + + + + + | ECG | Sinus rhythm | | [facility] | | | IMPRESSION | | | OF | | | | | | CARDIOLOGY | | + + + + + + | ECG | Right bundle branch | | [facility] | | | IMPRESSION | block- ABNORMAL ECG - | | OF | | | | | | CARDIOLOGY | | + + + + + + | ECG | Electronically signed | | [facility] | | | IMPRESSION | by: AJAY DE LOS SANTOS | | OF | | | | 10-17-2017 12:37:03 | | CARDIOLOGY | | + + + + + + + + | Specimen | + + | | + + + + + | Narrative | Performed At | + + + | | | + + + + + + + + | Performing | Address | City/State/Zipcode | Phone Number | | Organization | | | | + + + + + | [facility] | [address] | [place], [place] | | | CARDIOLOGY | [facility] | [address] | | + + + + + BASIC METABOLIC SET (NA, K, CL, TCO2, BUN, CR, GLU, CA) (10/16/2017 10:12 AM PDT) + + + + + + | Component | Value | Ref Range | Performed | Pathologist | | | | | At | Signature | + + + + + + | GLUCOSE, | 137 (H) | 70 - 99 mg/dL | [facility] | | | PLASMA | | | LABORATORY | | | (LAB) | | | SERVICES, | | | | | | CORE | | + + + + + + | BUN, PLASMA | 7 | 6 - 20 mg/dL | [facility] | | | (LAB) | | | LABORATORY | | | | | | SERVICES, | | | | | | CORE | | + + + + + + | CREATININE | 0.48 (L) | 0.70 - 1.30 | [facility] | | | PLASMA | | mg/dL | LABORATORY | | | (LAB) | | | SERVICES, | | | | | | CORE | | + + + + + + | EGFR | >60 | >60 mL/min | [facility] | | | - | | | LABORATORY | | | SUDANESE | | | SERVICES, | | | | | | CORE | | + + + + + + | EGFR NON | >60 | >60 mL/min | [facility] | | | -KAYE | | | LABORATORY | | | RICAN | | | SERVICES, | | | | | | CORE | | + + + + + + | SODIUM, | 138 | 136 - 145 | [facility] | | | PLASMA | | mmol/L | LABORATORY | | | (LAB) | | | SERVICES, | | | | | | CORE | | + + + + + + | POTASSIUM, | 3.5 | 3.4 - 5.0 | [facility] | | | PLASMA | | mmol/L | LABORATORY | | | (LAB) | | | SERVICES, | | | | | | CORE | | + + + + + + | CHLORIDE, | 105 | 97 - 108 mmol/L | [facility] | | | PLASMA | | | LABORATORY | | | (LAB) | | | SERVICES, | | | | | | CORE | | + + + + + + | TOTAL CO2, | 23 | 21 - 32 mmol/L | [facility] | | | PLASMA | | | LABORATORY | | | (LAB) | | | SERVICES, | | | | | | CORE | | + + + + + + | CALCIUM, | 8.1 (L) | 8.6 - 10.2 | [facility] | | | PLASMA | | mg/dL | LABORATORY | | | (LAB) | | | SERVICES, | | | | | | CORE | | + + + + + + | ANION GAP | 10 | 4 - 11 mmol/L | [facility] | | | | | | LABORATORY | | | | | | SERVICES, | | | | | | CORE | | + + + + + + | POTASSIUM | No Hemo | | [facility] | | | CMNT | | | LABORATORY | | | | | | SERVICES, | | | | | | CORE | | + + + + + + + + | Specimen | + + | Blood - Blood | | (substance) | + + + + + | Narrative | Performed At | + + + | GFR is estimated using the MDRD equation recommended by the | [facility] | | National Kidney Disease Education Program. Estimated GFR | LABORATORY | | Interpretive Information: <60 mL/min/1.73 sq m | [facility], CORE | | Chronic Kidney Disease <15 mL/min/1.73 sq m | | | Kidney Failure Estimated GFR greater that 60 mL/min/1.73 sq m is of | | | limited clinical value. The MDRD equation is not valid in the | | | following situations: - Patients under 18 years of age - Severe | | | malnutrition or obesity - Vegetarian diet - Rapidly changing kidney | | | function - Amputees, paraplegics, or other muscle-wasting diseses | | + + + + + + + + | Performing | Address | City/State/Zipcode | Phone Number | | Organization | | | | + + + + + | [facility] | [address] | [place] [address] | | | [place] [place] | [address] | | | + + + + + CBC (HEMOGRAM) ONLY (10/16/2017 6:32 AM PDT) + + + + + + | Component | Value | Ref Range | Performed | Pathologist | | | | | At | Signature | + + + + + + | WHITE CELL | 9.42 | 3.50 - 10.80 | [facility] | | | COUNT | | K/cu mm | LABORATORY | | | | | | SERVICES, | | | | | | CORE | | + + + + + + | RED CELL | 2.91 (L) | 4.50 - 6.00 | [facility] | | | COUNT | | M/cu mm | LABORATORY | | | | | | SERVICES, | | | | | | CORE | | + + + + + + | HEMOGLOBIN | 8.7 (L) | 13.5 - 17.5 | [facility] | | | | | g/dL | LABORATORY | | | | | | SERVICES, | | | | | | CORE | | + + + + + + | HEMATOCRIT | 26.9 (L) | 41.0 - 53.0 % | [facility] | | | | | | LABORATORY | | | | | | SERVICES, | | | | | | CORE | | + + + + + + | MCV | 92.4 | 80.0 - 100.0 fL | [facility] | | | | | | LABORATORY | | | | | | SERVICES, | | | | | | CORE | | + + + + + + | MCHC | 32.3 | 32.0 - 36.0 | [facility] | | | | | g/dL | LABORATORY | | | | | | SERVICES, | | | | | | CORE | | + + + + + + | RDW SD | 52.6 (H) | 35.1 - 46.3 fL | [facility] | | | | | | LABORATORY | | | | | | SERVICES, | | | | | | CORE | | + + + + + + | PLATELET | 224 | 150 - 400 K/cu | [facility] | | | COUNT | | mm | LABORATORY | | | | | | SERVICES, | | | | | | CORE | | + + + + + + | MPV | 8.9 (L) | 9.7 - 12.3 fL | [facility] | | | | | | LABORATORY | | | | | | SERVICES, | | | | | | CORE | | + + + + + + | NRBC% | 0.0 | 0.0 - 0.3 % | [facility] | | | | | | LABORATORY | | | | | | SERVICES, | | | | | | CORE | | + + + + + + | NRBC# | 0.00 | 0.00 - 0.02 | [facility] | | | | | K/cu mm | LABORATORY | | | | | | SERVICES, | | | | | | CORE | | + + + + + + + + | Specimen | + + | Blood - Blood | | (substance) | + + + + + | Narrative | Performed At | + + + | New reference ranges for MCV, MCHC, PLT, IG% and IG# effective | [facility] | | 09/05/2017 | LABORATORY | | | SERVICES, CORE | + + + + + + + + | Performing | Address | City/State/Zipcode | Phone Number | | Organization | | | | + + + + + | [facility] | [address] | [place] [address] | | | SERVICES, CORE | [address] | | | + + + + + VASC LAB VENOUS DUPLEX LOWER EXTREMITY BILAT COMP (10/15/2017 3:08 PM PDT) + + | Specimen | + + | | + + + + + | Narrative | Performed At | + + + | Bilateral: The duplex scanner was used to examine the deep and | [facility] | | superficial veins of the right and left lower extremities. The | RADIOLOGY VASC | | veins are patent bilaterally with normal flow and responses to | [facility] | | augmentation and compression maneuvers and no thrombus is noted. | | | Conclusions: A normal venous examination of the bilateral lower | | | extremities. No venous thrombosis was detected. I have | | | personally reviewed the images and, if necessary, edited the report. | | | I agree with the report as now presented. | | + + + + + | Procedure Note | + + | Service Account, Hickies Res In Interface - 10/15/2017 3:58 PM PDT Bilateral: The | | duplex scanner was used to examine the deep and superficial veins of the right and left | | lower extremities. The veins are patent bilaterally with normal flow and responses to | | augmentation and compression maneuvers and no thrombus is noted.Conclusions: A normal | | venous examination of the bilateral lower extremities. No venous thrombosis was | | detected.I have personally reviewed the images and, if necessary, edited the report. I | | agree with the report as now presented. | | | | | |I have personally reviewed the images and, if necessary, edited the report. I agree with t he report as now presented. | + + + +---------+ + + | Performing | Address | City/State/Zipcode | Phone Number | | Organization | | | | + +---------+ + + | [facility] | | | | | VASC US | | | | + +---------+ + + 12 LEAD ECG (10/15/2017 1:25 PM PDT) + + + + + + | Component | Value | Ref Range | Performed | Pathologist | | | | | At | Signature | + + + + + + | VENTRICULAR | 59 | bpm | [facility] | | | RATE | | | OF | | | | | | CARDIOLOGY | | + + + + + + | ATRIAL RATE | 59 | ms | [facility] | | | | | | OF | | | | | | CARDIOLOGY | | + + + + + + | P-R | 135 | ms | [facility] | | | INTERVAL | | | OF | | | | | | CARDIOLOGY | | + + + + + + | P AXIS | 59 | deg | [facility] | | | | | | OF | | | | | | CARDIOLOGY | | + + + + + + | QRS | 126 | ms | [facility] | | | DURATION | | | OF | | | | | | CARDIOLOGY | | + + + + + + | QT | 463 | ms | [facility] | | | | | | OF | | | | | | CARDIOLOGY | | + + + + + + | ANA LILIA-HALIMA | 458 | ms | [facility] | | | | | | OF | | | | | | CARDIOLOGY | | + + + + + + | R AXIS | 77 | deg | [facility] | | | | | | OF | | | | | | CARDIOLOGY | | + + + + + + | T AXIS | 27 | deg | [facility] | | | | | | OF | | | | | | CARDIOLOGY | | + + + + + + | ECG | Sinus bradycardia | | [facility] | | | IMPRESSION | | | OF | | | | | | CARDIOLOGY | | + + + + + + | ECG | Right bundle branch | | [facility] | | | IMPRESSION | block- ABNORMAL ECG - | | OF | | | | | | CARDIOLOGY | | + + + + + + | ECG | Electronically signed | | [facility] | | | IMPRESSION | by: AJAY DE LOS SANTOS | | OF | | | | 10-15-2017 20:01:12 | | CARDIOLOGY | | + + + + + + + + | Specimen | + + | | + + + + + | Narrative | Performed At | + + + | | | + + + + + + + + | Performing | Address | City/State/Zipcode | Phone Number | | Organization | | | | + + + + + | [facility] | [address] | [place], [place] | | | CARDIOLOGY | [address] | [address] | | + + + + + CAPILLARY BLOOD GLUCOSE (NO CHG), POC (10/15/2017 6:01 AM PDT) + +---------+ + + + | Component | Value | Ref Range | Performed | Pathologist | | | | | At | Signature | + +---------+ + + + | BLOOD | 134 (H) | 70 - 99 mg/dL | [facility] - | | | GLUCOSE, | | | [facility] | | | POC | | | [facility] | | | | | | OF CARE | | | | | | TESTS | | + +---------+ + + + + + | Specimen | + + | | + + + + + + + | Performing | Address | City/State/Zipcode | Phone Number | | Organization | | | | + + + + + | [facility] | [address] | [place], [place] | | | [place] [facility] | [facility] | [address] | | | TESTS | | | | + + + + + CBC (HEMOGRAM) ONLY (10/15/2017 5:48 AM PDT) + + + + + + | Component | Value | Ref Range | Performed | Pathologist | | | | | At | Signature | + + + + + + | WHITE CELL | 7.89 | 3.50 - 10.80 | [facility] | | | COUNT | | K/cu mm | LABORATORY | | | | | | SERVICES, | | | | | | CORE | | + + + + + + | RED CELL | 2.80 (L) | 4.50 - 6.00 | [facility] | | | COUNT | | M/cu mm | LABORATORY | | | | | | SERVICES, | | | | | | CORE | | + + + + + + | HEMOGLOBIN | 8.4 (L) | 13.5 - 17.5 | [facility] | | | | | g/dL | LABORATORY | | | | | | SERVICES, | | | | | | CORE | | + + + + + + | HEMATOCRIT | 25.6 (L) | 41.0 - 53.0 % | [facility] | | | | | | LABORATORY | | | | | | SERVICES, | | | | | | CORE | | + + + + + + | MCV | 91.4 | 80.0 - 100.0 fL | [facility] | | | | | | LABORATORY | | | | | | SERVICES, | | | | | | CORE | | + + + + + + | MCHC | 32.8 | 32.0 - 36.0 | [facility] | | | | | g/dL | LABORATORY | | | | | | SERVICES, | | | | | | CORE | | + + + + + + | RDW SD | 52.4 (H) | 35.1 - 46.3 fL | [facility] | | | | | | LABORATORY | | | | | | SERVICES, | | | | | | CORE | | + + + + + + | PLATELET | 161 | 150 - 400 K/cu | [facility] | | | COUNT | | mm | LABORATORY | | | | | | SERVICES, | | | | | | CORE | | + + + + + + | MPV | 9.0 (L) | 9.7 - 12.3 fL | [facility] | | | | | | LABORATORY | | | | | | SERVICES, | | | | | | CORE | | + + + + + + | NRBC% | 0.0 | 0.0 - 0.3 % | [facility] | | | | | | LABORATORY | | | | | | SERVICES, | | | | | | CORE | | + + + + + + | NRBC# | 0.00 | 0.00 - 0.02 | [facility] | | | | | K/cu mm | LABORATORY | | | | | | SERVICES, | | | | | | CORE | | + + + + + + + + | Specimen | + + | Blood - Blood | | (substance) | + + + + + | Narrative | Performed At | + + + | New reference ranges for MCV, MCHC, PLT, IG% and IG# effective | [facility] | | 09/05/2017 | LABORATORY | | | SERVICES, CORE | + + + + + + + + | Performing | Address | City/State/Zipcode | Phone Number | | Organization | | | | + + + + + | [facility] | [address] | [place] [address] | | | SERVICES, CORE | [address] | | | + + + + + CAPILLARY BLOOD GLUCOSE (NO CHG), POC (10/15/2017 12:36 AM PDT) + +---------+ + + + | Component | Value | Ref Range | Performed | Pathologist | | | | | At | Signature | + +---------+ + + + | BLOOD | 133 (H) | 70 - 99 mg/dL | [facility] - | | | GLUCOSE, | | | [facility] | | | POC | | | [facility] | | | | | | OF CARE | | | | | | TESTS | | + +---------+ + + + + + | Specimen | + + | | + + + + + + + | Performing | Address | City/State/Zipcode | Phone Number | | Organization | | | | + + + + + | [facility] | [address] | [place], [place] | | | [facility] OF CARE | [address] | [address] | | | TESTS | | | | + + + + + 12 LEAD ECG (10/14/2017 12:23 PM PDT) + + + + + + | Component | Value | Ref Range | Performed | Pathologist | | | | | At | Signature | + + + + + + | VENTRICULAR | 61 | bpm | [facility] | | | RATE | | | OF | | | | | | CARDIOLOGY | | + + + + + + | ATRIAL RATE | 61 | ms | [facility] | | | | | | OF | | | | | | CARDIOLOGY | | + + + + + + | P-R | 148 | ms | [facility] | | | INTERVAL | | | OF | | | | | | CARDIOLOGY | | + + + + + + | P AXIS | 54 | deg | [facility] | | | | | | OF | | | | | | CARDIOLOGY | | + + + + + + | QRS | 123 | ms | [facility] | | | DURATION | | | OF | | | | | | CARDIOLOGY | | + + + + + + | QT | 452 | ms | [facility] | | | | | | OF | | | | | | CARDIOLOGY | | + + + + + + | ANA LILIA-HALIMA | 454 | ms | [facility] | | | | | | OF | | | | | | CARDIOLOGY | | + + + + + + | R AXIS | 59 | deg | [facility] | | | | | | OF | | | | | | CARDIOLOGY | | + + + + + + | T AXIS | 24 | deg | [facility] | | | | | | OF | | | | | | CARDIOLOGY | | + + + + + + | ECG | Sinus rhythm | | [facility] | | | IMPRESSION | | | OF | | | | | | CARDIOLOGY | | + + + + + + | ECG | Right bundle branch | | [facility] | | | IMPRESSION | block | | OF | | | | | | CARDIOLOGY | | + + + + + + | ECG | ST elevation, consider | | [facility] | | | IMPRESSION | lateral injury- ABNORMAL | | OF | | | | ECG - | | CARDIOLOGY | | + + + + + + | ECG | Electronically signed | | [facility] | | | IMPRESSION | by: JULIO VIZCAINO | | OF | | | | 10-14-2017 16:59:23 | | CARDIOLOGY | | + + + + + + + + | Specimen | + + | | + + + + + | Narrative | Performed At | + + + | | | + + + + + + + + | Performing | Address | City/State/Zipcode | Phone Number | | Organization | | | | + + + + + | [facility] | [address] | [place], [place] | | | CARDIOLOGY | [address] | [address] | | + + + + + CBC (HEMOGRAM) ONLY (10/14/2017 4:53 AM PDT) + + + + + + | Component | Value | Ref Range | Performed | Pathologist | | | | | At | Signature | + + + + + + | WHITE CELL | 9.69 | 3.50 - 10.80 | [facility] | | | COUNT | | K/cu mm | LABORATORY | | | | | | SERVICES, | | | | | | CORE | | + + + + + + | RED CELL | 2.62 (L) | 4.50 - 6.00 | [facility] | | | COUNT | | M/cu mm | LABORATORY | | | | | | SERVICES, | | | | | | CORE | | + + + + + + | HEMOGLOBIN | 7.9 (L) | 13.5 - 17.5 | [facility] | | | | | g/dL | LABORATORY | | | | | | SERVICES, | | | | | | CORE | | + + + + + + | HEMATOCRIT | 24.5 (L) | 41.0 - 53.0 % | [facility] | | | | | | LABORATORY | | | | | | SERVICES, | | | | | | CORE | | + + + + + + | MCV | 93.5 | 80.0 - 100.0 fL | [facility] | | | | | | LABORATORY | | | | | | SERVICES, | | | | | | CORE | | + + + + + + | MCHC | 32.2 | 32.0 - 36.0 | [facility] | | | | | g/dL | LABORATORY | | | | | | SERVICES, | | | | | | CORE | | + + + + + + | RDW SD | 54.6 (H) | 35.1 - 46.3 fL | [facility] | | | | | | LABORATORY | | | | | | SERVICES, | | | | | | CORE | | + + + + + + | PLATELET | 174 | 150 - 400 K/cu | [facility] | | | COUNT | | mm | LABORATORY | | | | | | SERVICES, | | | | | | CORE | | + + + + + + | MPV | 9.3 (L) | 9.7 - 12.3 fL | [facility] | | | | | | LABORATORY | | | | | | SERVICES, | | | | | | CORE | | + + + + + + | NRBC% | 0.0 | 0.0 - 0.3 % | [facility] | | | | | | LABORATORY | | | | | | SERVICES, | | | | | | CORE | | + + + + + + | NRBC# | 0.00 | 0.00 - 0.02 | [facility] | | | | | K/cu mm | LABORATORY | | | | | | SERVICES, | | | | | | CORE | | + + + + + + + + | Specimen | + + | Blood - Blood | | (substance) | + + + + + | Narrative | Performed At | + + + | New reference ranges for MCV, MCHC, PLT, IG% and IG# effective | [facility] | | 09/05/2017 | LABORATORY | | | [address] | + + + + + + + + | Performing | Address | City/State/Zipcode | Phone Number | | Organization | | | | + + + + + | [facility] | [address] | [place] [address] | | | SERVICES[facility]AL[facility] | [address] | | | + + + + + RENAL FUNCTION SET (NA,K,CL,CO2,BUN,CREAT,GLUC,CA,PHOS,ALB ) (10/14/2017 4:53 AM PDT) + + + + + + | Component | Value | Ref Range | Performed | Pathologist | | | | | At | Signature | + + + + + + | GLUCOSE, | 107 (H) | 70 - 99 mg/dL | [facility] | | | PLASMA | | | LABORATORY | | | (LAB) | | | SERVICES, | | | | | | CORE | | + + + + + + | BUN, PLASMA | 8 | 6 - 20 mg/dL | [facility] | | | (LAB) | | | LABORATORY | | | | | | SERVICES, | | | | | | CORE | | + + + + + + | CREATININE | 0.56 (L) | 0.70 - 1.30 | [facility] | | | PLASMA | | mg/dL | LABORATORY | | | (LAB) | | | SERVICES, | | | | | | CORE | | + + + + + + | EGFR | >60 | >60 mL/min | [facility] | | | - | | | LABORATORY | | | SUDANESE | | | SERVICES, | | | | | | CORE | | + + + + + + | EGFR NON | >60 | >60 mL/min | [facility] | | | -KAYE | | | LABORATORY | | | RICAN | | | SERVICES, | | | | | | CORE | | + + + + + + | SODIUM, | 141 | 136 - 145 | [facility] | | | PLASMA | | mmol/L | LABORATORY | | | (LAB) | | | SERVICES, | | | | | | CORE | | + + + + + + | POTASSIUM, | 3.2 (L) | 3.4 - 5.0 | [facility] | | | PLASMA | | mmol/L | LABORATORY | | | (LAB) | | | SERVICES, | | | | | | CORE | | + + + + + + | CHLORIDE, | 107 | 97 - 108 mmol/L | [facility] | | | PLASMA | | | LABORATORY | | | (LAB) | | | SERVICES, | | | | | | CORE | | + + + + + + | TOTAL CO2, | 27 | 21 - 32 mmol/L | [facility] | | | PLASMA | | | LABORATORY | | | (LAB) | | | SERVICES, | | | | | | CORE | | + + + + + + | CALCIUM, | 7.9 (L) | 8.6 - 10.2 | [facility] | | | PLASMA | | mg/dL | LABORATORY | | | (LAB) | | | SERVICES, | | | | | | CORE | | + + + + + + | CALCIUM(ALB | 9.6 | 8.6 - 10.2 | [facility] | | | CORRECTED) | | mg/dL | LABORATORY | | | | | | SERVICES, | | | | | | CORE | | + + + + + + | ALBUMIN, | 1.9 (L) | 3.5 - 4.7 g/dL | [facility] | | | PLASMA | | | LABORATORY | | | (LAB) | | | SERVICES, | | | | | | CORE | | + + + + + + | PHOSPHORUS, | 2.5 | 2.4 - 4.7 mg/dL | [facility] | | | PLASMA | | | LABORATORY | | | (LAB) | | | SERVICES, | | | | | | CORE | | + + + + + + | POTASSIUM | No Hemo | | [facility] | | | CMNT | | | LABORATORY | | | | | | SERVICES, | | | | | | CORE | | + + + + + + | ANION GAP | 7 | 4 - 11 mmol/L | [facility] | | | | | | LABORATORY | | | | | | SERVICES, | | | | | | CORE | | + + + + + + | ANION | 12 (H) | 4 - 11 mmol/L | [facility] | | | GAP(ALB | | | LABORATORY | | | CORRECTED) | | | SERVICES, | | | | | | CORE | | + + + + + + +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 representing a small | | laceration. There is an unchanged tiny metallic density within the left upper | | quadrant.ADRENALS: Stable bilateral adrenal nodularity.KIDNEYS/URETERS: | | Unremarkable.PELVIC ORGANS/BLADDER: Unremarkable. GI TRACT/PERITONEUM: A gastrostomy | | tube is malpositioned within greater sac/omentum, outside of the gastric lumen. There is | | extensive pneumoperitoneum, with air overlying the left hepatic lobe and scattered | | throughout the peritoneal cavity. A large amount of extraluminal, intraperitoneal | | contrast and fluid is noted primarily along the greater curvature of the stomach and in | | the region of the transverse mesocolon. There are a few loops of dilated small bowel | | within the left lower quadrant measuring up to 4.8 cm in diameter, with adjacent | | decompressed loops of small bowel. Moderate amount of stool throughout the colon. LYMPH | | NODES: No lymphadenopathy.VESSELS: Unremarkable. BONES AND SOFT TISSUES: Partially | | visualized intramedullary nail and screw fixation of a left proximal femur fracture is | | noted. Multiple bilateral rib fractures, T12 vertebral body fracture and pelvic | | fractures are again noted, with evidence of interval early callus formation. The T12 | | vertebral body fracture shows additional 10% anterior height loss. A midline abdominal | | surgical wound is noted, with mesenteric stranding about the anterior abdomen. | | IMPRESSION: 1. Malpositioned gastrostomy tube outside of the gastric lumen, with | | extensive pneumoperitoneum, intraperitoneal contrast, and free fluid. 2. Dilated loops | | of proximal jejunum measuring up to 4.8 cm in diameter. This may reflect focal ileus | | although early obstruction is conceivable. Attention on follow-up. 3. Redemonstrated | | multiple bilateral rib fractures, T12 vertebral body fracture, and pelvic/fixated femur | | fractures, with evidence of early callus formation. The T12 vertebral body fracture | | shows an additional 10% anterior height loss compared to 09/11/2017. 4. Stable | | subcentimeter splenic laceration. 5. Slightly decreased left lower lobe consolidation. | | Attention on follow-up recommended. Critical results were discussed with Dr. Calles of | | the trauma service on 10/12/2017 9:30 AM by Dae Izaguirre MD. I have personally reviewed | | the images and, if necessary, edited the report. I agree with the report as now | | presented. Final signature: Espinoza Sanchez MD 10/12/2017 5:04 PM Preliminary: Dae Richardson | | MD Dmitriy Dictation initiated: Dae Izaguirre MD 10/12/2017 9:04 AM | | | |4. Stable subcentimeter splenic laceration. | | | |5. Slightly decreased left lower lobe consolidation. Attention on follow-up recommended. | | | |Critical results were discussed with Dr. Calles of the trauma service on 10/12/2017 9:30 AM Rita Izaguirre MD. | | | |I have personally reviewed the images and, if necessary, edited the report. I agree with e report as now presented. | | | |Final signature: Espinoza Sanchez MD 10/12/2017 5:04 PM | |Preliminary: Dae Izaguirre MD | |Dictation initiated: Dae Izaguirre MD 10/12/2017 9:04 AM | + + + +---------+ + + | Performing | Address | City/State/Zipcode | Phone Number | | Organization | | | | + +---------+ + + | [facility] | | | | | VOICE RECOGNITION 2 | | | | + +---------+ + + CBC (HEMOGRAM) ONLY (10/12/2017 7:38 AM PDT) + + + + + + | Component | Value | Ref Range | Performed | Pathologist | | | | | At | Signature | + + + + + + | WHITE CELL | 23.86 (H) | 3.50 - 10.80 | [facility] | | | COUNT | | K/cu mm | LABORATORY | | | | | | SERVICES, | | | | | | CORE | | + + + + + + | RED CELL | 3.42 (L) | 4.50 - 6.00 | [facility] | | | COUNT | | M/cu mm | LABORATORY | | | | | | SERVICES, | | | | | | CORE | | + + + + + + | HEMOGLOBIN | 10.3 (L) | 13.5 - 17.5 | [facility] | | | | | g/dL | LABORATORY | | | | | | SERVICES, | | | | | | CORE | | + + + + + + | HEMATOCRIT | 31.3 (L) | 41.0 - 53.0 % | [facility] | | | | | | LABORATORY | | | | | | SERVICES, | | | | | | CORE | | + + + + + + | MCV | 91.5 | 80.0 - 100.0 fL | [facility] | | | | | | LABORATORY | | | | | | SERVICES, | | | | | | CORE | | + + + + + + | MCHC | 32.9 | 32.0 - 36.0 | [facility] | | | | | g/dL | LABORATORY | | | | | | SERVICES, | | | | | | CORE | | + + + + + + | RDW SD | 55.6 (H) | 35.1 - 46.3 fL | [facility] | | | | | | LABORATORY | | | | | | SERVICES, | | | | | | CORE | | + + + + + + | PLATELET | 215 | 150 - 400 K/cu | [facility] | | | COUNT | | mm | LABORATORY | | | | | | SERVICES, | | | | | | CORE | | + + + + + + | MPV | 9.4 (L) | 9.7 - 12.3 fL | [facility] | | | | | | LABORATORY | | | | | | SERVICES, | | | | | | CORE | | + + + + + + | NRBC% | 0.0 | 0.0 - 0.3 % | [facility] | | | | | | LABORATORY | | | | | | SERVICES, | | | | | | CORE | | + + + + + + | NRBC# | 0.00 | 0.00 - 0.02 | [facility] | | | | | K/cu mm | LABORATORY | | | | | | SERVICES, | | | | | | CORE | | + + + + + + + + | Specimen | + + | Blood - Blood | | (substance) | + + + + + | Narrative | Performed At | + + + | New reference ranges for MCV, MCHC, PLT, IG% and IG# effective | [facility] | | 09/05/2017 | LABORATORY | | | SERVICES, CORE | + + + + + + + + | Performing | Address | City/State/Zipcode | Phone Number | | Organization | | | | + + + + + | [facility] | [address] | [place] [address] | | | SERVICES, CORE | [address] | | | + + + + + BASIC METABOLIC SET (NA, K, CL, TCO2, BUN, CR, GLU, CA) (10/12/2017 7:38 AM PDT) + + + + + + | Component | Value | Ref Range | Performed | Pathologist | | | | | At | Signature | + + + + + + | GLUCOSE, | 109 (H) | 70 - 99 mg/dL | [facility] | | | PLASMA | | | LABORATORY | | | (LAB) | | | SERVICES, | | | | | | CORE | | + + + + + + | BUN, PLASMA | 8 | 6 - 20 mg/dL | [facility] | | | (LAB) | | | LABORATORY | | | | | | SERVICES, | | | | | | CORE | | + + + + + + | CREATININE | 0.51 (L) | 0.70 - 1.30 | [facility] | | | PLASMA | | mg/dL | LABORATORY | | | (LAB) | | | SERVICES, | | | | | | CORE | | + + + + + + | EGFR | >60 | >60 mL/min | [facility] | | | - | | | LABORATORY | | | SUDANESE | | | SERVICES, | | | | | | CORE | | + + + + + + | EGFR NON | >60 | >60 mL/min | [facility] | | | -KAYE | | | LABORATORY | | | RICAN | | | SERVICES, | | | | | | CORE | | + + + + + + | SODIUM, | 138 | 136 - 145 | [facility] | | | PLASMA | | mmol/L | LABORATORY | | | (LAB) | | | SERVICES, | | | | | | CORE | | + + + + + + | POTASSIUM, | 3.4 | 3.4 - 5.0 | [facility] | | | PLASMA | | mmol/L | LABORATORY | | | (LAB) | | | SERVICES, | | | | | | CORE | | + + + + + + | CHLORIDE, | 104 | 97 - 108 mmol/L | [facility] | | | PLASMA | | | LABORATORY | | | (LAB) | | | SERVICES, | | | | | | CORE | | + + + + + + | TOTAL CO2, | 27 | 21 - 32 mmol/L | [facility] | | | PLASMA | | | LABORATORY | | | (LAB) | | | SERVICES, | | | | | | CORE | | + + + + + + | CALCIUM, | 8.5 (L) | 8.6 - 10.2 | [facility] | | | PLASMA | | mg/dL | LABORATORY | | | (LAB) | | | SERVICES, | | | | | | CORE | | + + + + + + | ANION GAP | 7 | 4 - 11 mmol/L | [facility] | | | | | | LABORATORY | | | | | | SERVICES, | | | | | | CORE | | + + + + + + | POTASSIUM | No Hemo | | [facility] | | | CMNT | | | LABORATORY | | | | | | SERVICES, | | | | | | CORE | | + + + + + + + + | Specimen | + + | Blood - Blood | | (substance) | + + + + + | Narrative | Performed At | + + + | GFR is estimated using the MDRD equation recommended by the | [facility] | | National Kidney Disease Education Program. Estimated GFR | LABORATORY | | Interpretive Information: <60 mL/min/1.73 sq m | SERVICES, CORE | | Chronic Kidney Disease <15 mL/min/1.73 sq m | | | Kidney Failure Estimated GFR greater that 60 mL/min/1.73 sq m is of | | | limited clinical value. The MDRD equation is not valid in the | | | following situations: - Patients under 18 years of age - Severe | | | malnutrition or obesity - Vegetarian diet - Rapidly changing kidney | | | function - Amputees, paraplegics, or other muscle-wasting diseses | | + + + + + + + + | Performing | Address | City/State/Zipcode | Phone Number | | Organization | | | | + + + + + | [facility] | [address] | [place] [address] | | | ELIN, NATALEE | [address] | | | + + + + + VANCOMYCIN, TROUGH (10/12/2017 2:48 AM PDT) + +---------+ + + + | Component | Value | Ref Range | Performed | Pathologist | | | | | At | Signature | + +---------+ + + + | VANCOMYCIN, | 7.2 (L) | 10.0 - 20.0 | [facility] | | | TROUGH | | ug/mL | LABORATORY | | | | | | SERVICES, | | | | | | CORE | | + +---------+ + + + + + | Specimen | + + | Blood - Blood | | (substance) | + + + + + | Narrative | Performed At | + + + | Please draw trough just prior to administering the 0300 dose on | [facility] | | 10/12, thanks! | LABORATORY | | | NATALEE [place] | + + + + + + + + | Performing | Address | City/State/Zipcode | Phone Number | | Organization | | | | + + + + + | [facility] | [address] | [place] [address] | | | NATALEE [place]THINGTON | [address] | | | + + + + + 12 LEAD ECG (10/11/2017 12:50 PM PDT) + + + + + + | Component | Value | Ref Range | Performed | Pathologist | | | | | At | Signature | + + + + + + | VENTRICULAR | 119 | bpm | [facility] | | | RATE | | | OF | | | | | | CARDIOLOGY | | + + + + + + | ATRIAL RATE | 119 | ms | [facility] | | | | | | OF | | | | | | CARDIOLOGY | | + + + + + + | P-R | 164 | ms | [facility] | | | INTERVAL | | | OF | | | | | | CARDIOLOGY | | + + + + + + | P AXIS | 13 | deg | [facility] | | | | | | OF | | | | | | CARDIOLOGY | | + + + + + + | QRS | 121 | ms | [facility] | | | DURATION | | | OF | | | | | | CARDIOLOGY | | + + + + + + | QT | 347 | ms | [facility] | | | | | | OF | | | | | | CARDIOLOGY | | + + + + + + | QTC-HALIMA | 489 | ms | [facility] | | | | | | OF | | | | | | CARDIOLOGY | | + + + + + + | R AXIS | 102 | deg | [facility] | | | | | | OF | | | | | | CARDIOLOGY | | + + + + + + | T AXIS | 29 | deg | [facility] | | | | | | OF | | | | | | CARDIOLOGY | | + + + + + + | ECG | Sinus tachycardia | | [facility] | | | IMPRESSION | | | OF | | | | | | CARDIOLOGY | | + + + + + + | ECG | Right bundle branch | | [facility] | | | IMPRESSION | block | | OF | | | | | | CARDIOLOGY | | + + + + + + | ECG | prolonged QT interval- | | [facility] | | | IMPRESSION | ABNORMAL ECG - | | OF | | | | | | CARDIOLOGY | | + + + + + + | ECG | Electronically signed | | [facility] | | | IMPRESSION | by: PAULO CAVAZOS | | OF | | | | 10-11-2017 16:37:07 | | CARDIOLOGY | | + + + + + + + + | Specimen | + + | | + + + + + | Narrative | Performed At | + + + | | | + + + + + + + + | Performing | Address | City/State/Zipcode | Phone Number | | Organization | | | | + + + + + | [facility] | [address] | [place], [place] | | | CARDIOLOGY | [address] | [address] | | + + + + + 12 LEAD ECG (10/11/2017 5:25 AM PDT) + + + + + + | Component | Value | Ref Range | Performed | Pathologist | | | | | At | Signature | + + + + + + | VENTRICULAR | 107 | bpm | [facility] | | | RATE | | | OF | | | | | | CARDIOLOGY | | + + + + + + | ATRIAL RATE | 107 | ms | [facility] | | | | | | OF | | | | | | CARDIOLOGY | | + + + + + + | P-R | 134 | ms | [facility] | | | INTERVAL | | | OF | | | | | | CARDIOLOGY | | + + + + + + | P AXIS | 67 | deg | [facility] | | | | | | OF | | | | | | CARDIOLOGY | | + + + + + + | QRS | 120 | ms | [facility] | | | DURATION | | | OF | | | | | | CARDIOLOGY | | + + + + + + | QT | 358 | ms | [facility] | | | | | | OF | | | | | | CARDIOLOGY | | + + + + + + | QTC-HALIMA | 477 | ms | [facility] | | | | | | OF | | | | | | CARDIOLOGY | | + + + + + + | R AXIS | 102 | deg | [facility] | | | | | | OF | | | | | | CARDIOLOGY | | + + + + + + | T AXIS | 21 | deg | [facility] | | | | | | OF | | | | | | CARDIOLOGY | | + + + + + + | ECG | Sinus tachycardia | | [facility] | | | IMPRESSION | | | OF | | | | | | CARDIOLOGY | | + + + + + + | ECG | IVCD, consider RBBB | | [facility] | | | IMPRESSION | | | OF | | | | | | CARDIOLOGY | | + + + + + + | ECG | Borderline prolonged QT | | [facility] | | | IMPRESSION | interval- ABNORMAL ECG - | | OF | | | | | | CARDIOLOGY | | + + + + + + | ECG | Electronically signed | | [facility] | | | IMPRESSION | by: PAULO CAVAZOS | | OF | | | | 10-11-2017 16:37:15 | | CARDIOLOGY | | + + + + + + + + | Specimen | + + | | + + + + + | Narrative | Performed At | + + + | | | + + + + + + + + | Performing | Address | City/State/Zipcode | Phone Number | | Organization | | | | + + + + + | [facility] | [address] | [place], [place] | | | CARDIOLOGY | [address] | [address] | | + + + + + CBC (HEMOGRAM) ONLY (10/11/2017 12:15 AM PDT) + + + + + + | Component | Value | Ref Range | Performed | Pathologist | | | | | At | Signature | + + + + + + | WHITE CELL | 10.01 | 3.50 - 10.80 | [facility] | | | COUNT | | K/cu mm | LABORATORY | | | | | | SERVICES, | | | | | | CORE | | + + + + + + | RED CELL | 3.79 (L) | 4.50 - 6.00 | [facility] | | | COUNT | | M/cu mm | LABORATORY | | | | | | SERVICES, | | | | | | CORE | | + + + + + + | HEMOGLOBIN | 11.3 (L) | 13.5 - 17.5 | [facility] | | | | | g/dL | LABORATORY | | | | | | SERVICES, | | | | | | CORE | | + + + + + + | HEMATOCRIT | 34.8 (L) | 41.0 - 53.0 % | [facility] | | | | | | LABORATORY | | | | | | SERVICES, | | | | | | CORE | | + + + + + + | MCV | 91.8 | 80.0 - 100.0 fL | [facility] | | | | | | LABORATORY | | | | | | SERVICES, | | | | | | CORE | | + + + + + + | MCHC | 32.5 | 32.0 - 36.0 | [facility] | | | | | g/dL | LABORATORY | | | | | | SERVICES, | | | | | | CORE | | + + + + + + | RDW SD | 56.0 (H) | 35.1 - 46.3 fL | [facility] | | | | | | LABORATORY | | | | | | SERVICES, | | | | | | CORE | | + + + + + + | PLATELET | 206 | 150 - 400 K/cu | [facility] | | | COUNT | | mm | LABORATORY | | | | | | SERVICES, | | | | | | CORE | | + + + + + + | MPV | 9.2 (L) | 9.7 - 12.3 fL | [facility] | | | | | | LABORATORY | | | | | | SERVICES, | | | | | | CORE | | + + + + + + | NRBC% | 0.0 | 0.0 - 0.3 % | [facility] | | | | | | LABORATORY | | | | | | SERVICES, | | | | | | CORE | | + + + + + + | NRBC# | 0.00 | 0.00 - 0.02 | [facility] | | | | | K/cu mm | LABORATORY | | | | | | SERVICES, | | | | | | CORE | | + + + + + + + + | Specimen | + + | Blood - Blood | | (substance) | + + + + + | Narrative | Performed At | + + + | New reference ranges for MCV, MCHC, PLT, IG% and IG# effective | [facility] | | 09/05/2017 | LABORATORY | | | SERVICES, CORE | + + + + + + + + | Performing | Address | City/State/Zipcode | Phone Number | | Organization | | | | + + + + + | [facility] | [address] | [place] [address] | | | SERVICES, CORE | [address] | | | + + + + + MAGNESIUM, PLASMA (10/11/2017 12:15 AM PDT) + +-------+ + + + | Component | Value | Ref Range | Performed | Pathologist | | | | | At | Signature | + +-------+ + + + | MAGNESIUM,P | 1.7 | 1.6 - 2.6 mg/dL | [facility] | | | LASMA | | | LABORATORY | | | | | | SERVICES, | | | | | | CORE | | + +-------+ + + + + + | Specimen | + + | Blood - Blood | | (substance) | + + + + + | Narrative | Performed At | + + + | Reference range change effective 12/11/16. | [facility] | | | LABORATORY | | | [place] [place] | + + + + + + + + | Performing | Address | City/State/Zipcode | Phone Number | | Organization | | | | + + + + + | [facility] | [address] | [place] [address] | | | SERVICES, NATALEE | [address] | | | + + + + + RENAL FUNCTION SET (NA,K,CL,CO2,BUN,CREAT,GLUC,CA,PHOS,ALB ) (10/11/2017 12:15 AM PDT) + + + + + + | Component | Value | Ref Range | Performed | Pathologist | | | | | At | Signature | + + + + + + | GLUCOSE, | 150 (H) | 70 - 99 mg/dL | [facility] | | | PLASMA | | | LABORATORY | | | (LAB) | | | SERVICES, | | | | | | CORE | | + + + + + + | BUN, PLASMA | 11 | 6 - 20 mg/dL | [facility] | | | (LAB) | | | LABORATORY | | | | | | SERVICES, | | | | | | CORE | | + + + + + + | CREATININE | 0.55 (L) | 0.70 - 1.30 | [facility] | | | PLASMA | | mg/dL | LABORATORY | | | (LAB) | | | SERVICES, | | | | | | CORE | | + + + + + + | EGFR | >60 | >60 mL/min | [facility] | | | - | | | LABORATORY | | | SUDANESE | | | SERVICES, | | | | | | CORE | | + + + + + + | EGFR NON | >60 | >60 mL/min | [facility] | | | -KAYE | | | LABORATORY | | | RICAN | | | SERVICES, | | | | | | CORE | | + + + + + + | SODIUM, | 139 | 136 - 145 | [facility] | | | PLASMA | | mmol/L | LABORATORY | | | (LAB) | | | SERVICES, | | | | | | CORE | | + + + + + + | POTASSIUM, | 3.8 | 3.4 - 5.0 | [facility] | | | PLASMA | | mmol/L | LABORATORY | | | (LAB) | | | SERVICES, | | | | | | CORE | | + + + + + + | CHLORIDE, | 106 | 97 - 108 mmol/L | [facility] | | | PLASMA | | | LABORATORY | | | (LAB) | | | SERVICES, | | | | | | CORE | | + + + + + + | TOTAL CO2, | 25 | 21 - 32 mmol/L | [facility] | | | PLASMA | | | LABORATORY | | | (LAB) | | | SERVICES, | | | | | | CORE | | + + + + + + | CALCIUM, | 8.2 (L) | 8.6 - 10.2 | [facility] | | | PLASMA | | mg/dL | LABORATORY | | | (LAB) | | | SERVICES, | | | | | | CORE | | + + + + + + | CALCIUM(ALB | 9.2 | 8.6 - 10.2 | [facility] | | | CORRECTED) | | mg/dL | LABORATORY | | | | | | SERVICES, | | | | | | CORE | | + + + + + + | ALBUMIN, | 2.8 (L) | 3.5 - 4.7 g/dL | [facility] | | | PLASMA | | | LABORATORY | | | (LAB) | | | SERVICES, | | | | | | CORE | | + + + + + + | PHOSPHORUS, | 3.5 | 2.4 - 4.7 mg/dL | [facility] | | | PLASMA | | | LABORATORY | | | (LAB) | | | SERVICES, | | | | | | CORE | | + + + + + + | POTASSIUM | No Hemo | | [facility] | | | CMNT | | | LABORATORY | | | | | | SERVICES, | | | | | | CORE | | + + + + + + | ANION GAP | 8 | 4 - 11 mmol/L | [facility] | | | | | | LABORATORY | | | | | | SERVICES, | | | | | | CORE | | + + + + + + | ANION | 11 | 4 - 11 mmol/L | [facility] | | | GAP(ALB | | | LABORATORY | | | CORRECTED) | | | SERVICES, | | | | | | CORE | | + + + + + + + + | Specimen | + + | Blood - Blood | | (substance) | + + + + + | Narrative | Performed At | + + + | GFR is estimated using the MDRD equation recommended by the | [facility] | | National Kidney Disease Education Program. Estimated GFR | LABORATORY | | Interpretive Information: <60 mL/min/1.73 sq m | SERVICES, CORE | | Chronic Kidney Disease <15 mL/min/1.73 sq m | | | Kidney Failure Estimated GFR greater that 60 mL/min/1.73 sq m is of | | | limited clinical value. The MDRD equation is not valid in the | | | following situations: - Patients under 18 years of age - Severe | | | malnutrition or obesity - Vegetarian diet - Rapidly changing kidney | | | function - Amputees, paraplegics, or other muscle-wasting diseses | | + + + + + + + + | Performing | Address | City/State/Zipcode | Phone Number | | Organization | | | | + + + + + | [facility] | [address] | [place] [address] | | | SERVICES, NATALEE | [address] | | | + + + + + PROCEDURE NOTE (10/10/2017 10:00 PM PDT) + + + | Narrative | Performed At | + + + | Darius Link MD 10/12/2017 11:11 AM OPERATIVE REPORT | | | DATE OF OPERATION: 10/10/2017 ATTENDING SURGEON: 1. Dr. Hernandez | | | EXTERNAL GRINDER TENDER: 1. Darius Link MD INDICATIONS: Dysphagia | | | and need for supervisor long goods nutrition access PREOPERATIVE DIAGNOSIS: | | | 1.Dysphagia and need for supervisor long goods nutrition access | | | POSTOPERATIVE DIAGNOSIS: 1.Same PROCEDURE(S) PERFORMED: 1. | | | Open Gastrostomy tube placement with extensive lysis of adhesions | | | FINDINGS: 1. Scared Open SPECIMENS:: 1.None DRAINS: | | | 1.Gabriel-Oconnor Button Gastrostomy tube COMPLICATIONS: 1. None | | | Immediately Apparent DISPOSITION: 1.Intubated to ICU | | | TIMEOUT: Neurosurgery completed their portion of the procedure and | | | prior to the beginning out portion of the procedurethe team paused | | | to verify the patient | | | | | | s identity, the procedure to be performed (in accordance with the | | | consent,) and the correct side/site. The patient was positioned | | | appropriately. All relevant images and results were properly labeled | | | and displayed. We addressed antibiotic prophylaxis and fluids for | | | irrigation as applicable to this patient. Any safety precautions | | | were addressed. PROCEDURE IN DETAIL: After neurosurgery | | | completed their portion of the operation the patient was | | | repositioned, redraped and antibiotics were administered. An upper | | | midline incision was made and carried down to the subcutaneous | | | tissue. The fascia and previous suture for the midline was seen | | | and slowly entered using a 15 blade. The scar tissue was thick and | | | we encountered mesh from a previous operation. We were able to | | | find a window and enter the peritontium. There were extensive | | | adhesions and the bowel, and omentum were stuck to the anterior | | | abdominal wall. We Proceeded to lysis adhesions for 60 minutes in | | | order to create a plane to the stomach. 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 There adhesions were dense and | | | matted in order to identify the stomach 300 ml of saline was | | | instilled to dilate the stomach. A gastrotomy was made and saline | | | returned. A stab incision was made in the anterior abdominal wall | | | and the Gabriel-oconnor button was advanced through this. The gastrotomy | | | tube was then placed in the gastrotomy and saline instilled. | | | Because of the difficult dissection we shot a tube and contrast | | | appeared to be intraluminal. The stomach was then pexied to the | | | anterior abdominal wall with 3-0 Silk suture. The midline incision | | | was closed with running 0 Maxon suture and the skin closed with | | | fernandez. This completed the operation and the patient was returned | | | intubated to the ICU. | | + + + PROCEDURE NOTE (10/10/2017 7:45 PM PDT) + + + | Narrative | Performed At | + + + | Darius Link MD 10/10/2017 12:54 PM INPATIENT BRIEF | | | OPERATIVE NOTE Procedure Date: 10/10/2017 Author: Darius Link MD Attending Physician: Dr. Hernandez Assistants: Darius Radford | Prabhakar Link At (time), prior to the beginning of the procedure, | | | the team paused to verify the patient | | | | | | s identity, the procedure to be performed (in accordance with the | | | consent,) and the correct side/site. The patient was positioned | | | appropriately. All relevant images and results were properly labeled | | | and displayed. We addressed antibiotic prophylaxis and fluids for | | | irrigation as applicable to this patient. Any safety precautions | | | were addressed. Preoperative Diagnosis: Dysphagia | | | Postoperative Diagnosis: Same Procedure Performed: Open | | | Gastrostomy tube placement with extensive lysis of adhesions | | | Anesthesia: GETA Estimated Blood Loss: 50 Specimens: None | | | Implants: Gabriel-Oconnor 3.8cm Complications: None Immediately appartent | | | Drains: none Disposition: TO ICU Findings: Mesh, extensive | | | adhesions | | + + + PROCEDURE NOTE (10/10/2017 5:26 PM PDT) + + + | Narrative | Performed At | + + + | Cecilia Jackson MD 10/10/2017 10:26 AM INPATIENT BRIEF | | | OPERATIVE NOTE Procedure Date: 10/10/2017 Author: CECILIA | | | MD MANUEL Attending Physician: Magdiel Stock MD Assistants: | | | Arben Jackson MD Prior to the beginning of the procedure the | | | team paused to verify the patient's identity, as well as the | | | procedure to be performed and the correct side/site. All equipment | | | required was ready and available. The patient was positioned | | | appropriately. The following team members were present during the | | | team pause: Neurosurgery, anesthesia, nursing, [place] staff | | | Preoperative Diagnosis: Cranioplasty infection; wound leakage | | | Seizures Postoperative Diagnosis: same Procedure Performed: | | | Right sided wound exploration Removal of synthetic cranioplasty | | | Washout of epidural abscess Estimated Blood Loss: 200 mL | | | Fluids: per anesthesia Specimens: multiple swabs and tissue | | | samples sent to micro for specimen; Bone flap also sent to micro. | | | Complications: none Drains: subgaleal KENDALL drain to suction | | | Disposition: direct to ICU Findings: Substantial purulence | | | under pressure after bone flap removed. Multiple culture swabs sent | | | of subgaleal space and epidural pus. Bone flap removed and sent to | | | micro. Skin closed with interrupted nylons. Dictation to | | | [place] [id number] Chief Resident | | | Neurosurgery | | + + + CBC (HEMOGRAM) ONLY (10/10/2017 2:23 PM PDT) + + + + + + | Component | Value | Ref Range | Performed | Pathologist | | | | | At | Signature | + + + + + + | WHITE CELL | 9.71 | 3.50 - 10.80 | [facility] | | | COUNT | | K/cu mm | LABORATORY | | | | | | SERVICES, | | | | | | CORE | | + + + + + + | RED CELL | 3.65 (L) | 4.50 - 6.00 | [facility] | | | COUNT | | M/cu mm | LABORATORY | | | | | | SERVICES, | | | | | | CORE | | + + + + + + | HEMOGLOBIN | 10.9 (L) | 13.5 - 17.5 | [facility] | | | | | g/dL | LABORATORY | | | | | | SERVICES, | | | | | | CORE | | + + + + + + | HEMATOCRIT | 34.0 (L) | 41.0 - 53.0 % | [facility] | | | | | | LABORATORY | | | | | | SERVICES, | | | | | | CORE | | + + + + + + | MCV | 93.2 | 80.0 - 100.0 fL | [facility] | | | | | | LABORATORY | | | | | | SERVICES, | | | | | | CORE | | + + + + + + | MCHC | 32.1 | 32.0 - 36.0 | [facility] | | | | | g/dL | LABORATORY | | | | | | SERVICES, | | | | | | CORE | | + + + + + + | RDW SD | 55.3 (H) | 35.1 - 46.3 fL | [facility] | | | | | | LABORATORY | | | | | | SERVICES, | | | | | | CORE | | + + + + + + | PLATELET | 184 | 150 - 400 K/cu | [facility] | | | COUNT | | mm | LABORATORY | | | | | | SERVICES, | | | | | | CORE | | + + + + + + | MPV | 9.8 | 9.7 - 12.3 fL | [facility] | | | | | | LABORATORY | | | | | | SERVICES, | | | | | | CORE | | + + + + + + | NRBC% | 0.0 | 0.0 - 0.3 % | [facility] | | | | | | LABORATORY | | | | | | SERVICES, | | | | | | CORE | | + + + + + + | NRBC# | 0.00 | 0.00 - 0.02 | [facility] | | | | | K/cu mm | LABORATORY | | | | | | SERVICES, | | | | | | CORE | | + + + + + + + + | Specimen | + + | Blood - Blood | | (substance) | + + + + + | Narrative | Performed At | + + + | New reference ranges for MCV, MCHC, PLT, IG% and IG# effective | [facility] | | 09/05/2017 | LABORATORY | | | SERVICES, CORE | + + + + + + + + | Performing | Address | City/State/Zipcode | Phone Number | | Organization | | | | + + + + + | [facility] | [id number] | [place] [address] | | | SERVICES, CORE | [address] | | | + + + + + RENAL FUNCTION SET (NA,K,CL,CO2,BUN,CREAT,GLUC,CA,PHOS,ALB ) (10/10/2017 2:02 PM PDT) + + + + + + | Component | Value | Ref Range | Performed | Pathologist | | | | | At | Signature | + + + + + + | GLUCOSE, | 103 (H) | 70 - 99 mg/dL | [facility] | | | PLASMA | | | LABORATORY | | | (LAB) | | | SERVICES, | | | | | | CORE | | + + + + + + | BUN, PLASMA | 14 | 6 - 20 mg/dL | [facility] | | | (LAB) | | | LABORATORY | | | | | | SERVICES, | | | | | | CORE | | + + + + + + | CREATININE | 0.67 (L) | 0.70 - 1.30 | [facility] | | | PLASMA | | mg/dL | LABORATORY | | | (LAB) | | | SERVICES, | | | | | | CORE | | + + + + + + | EGFR | >60 | >60 mL/min | [facility] | | | - | | | LABORATORY | | | SUDANESE | | | SERVICES, | | | | | | CORE | | + + + + + + | EGFR NON | >60 | >60 mL/min | [facility] | | | -KAYE | | | LABORATORY | | | RICAN | | | SERVICES, | | | | | | CORE | | + + + + + + | SODIUM, | 142 | 136 - 145 | [facility] | | | PLASMA | | mmol/L | LABORATORY | | | (LAB) | | | SERVICES, | | | | | | CORE | | + + + + + + | POTASSIUM, | 4.2 | 3.4 - 5.0 | [facility] | | | PLASMA | | mmol/L | LABORATORY | | | (LAB) | | | SERVICES, | | | | | | CORE | | + + + + + + | CHLORIDE, | 108 | 97 - 108 mmol/L | [facility] | | | PLASMA | | | LABORATORY | | | (LAB) | | | SERVICES, | | | | | | CORE | | + + + + + + | TOTAL CO2, | 28 | 21 - 32 mmol/L | [facility] | | | PLASMA | | | LABORATORY | | | (LAB) | | | SERVICES, | | | | | | CORE | | + + + + + + | CALCIUM, | 8.0 (L) | 8.6 - 10.2 | [facility] | | | PLASMA | | mg/dL | LABORATORY | | | (LAB) | | | SERVICES, | | | | | | CORE | | + + + + + + | CALCIUM(ALB | 9.0 | 8.6 - 10.2 | [facility] | | | CORRECTED) | | mg/dL | LABORATORY | | | | | | SERVICES, | | | | | | CORE | | + + + + + + | ALBUMIN, | 2.7 (L) | 3.5 - 4.7 g/dL | [facility] | | | PLASMA | | | LABORATORY | | | (LAB) | | | SERVICES, | | | | | | CORE | | + + + + + + | PHOSPHORUS, | 4.0 | 2.4 - 4.7 mg/dL | [facility] | | | PLASMA | | | LABORATORY | | | (LAB) | | | SERVICES, | | | | | | CORE | | + + + + + + | POTASSIUM | No Hemo | | [facility] | | | CMNT | | | LABORATORY | | | | | | SERVICES, | | | | | | CORE | | + + + + + + | ANION GAP | 6 | 4 - 11 mmol/L | [facility] | | | | | | LABORATORY | | | | | | SERVICES, | | | | | | CORE | | + + + + + + | ANION | 9 | 4 - 11 mmol/L | [facility] | | | GAP(ALB | | | LABORATORY | | | CORRECTED) | | | SERVICES, | | | | | | CORE | | + + + + + + + + | Specimen | + + | Blood - Blood | | (substance) | + + + + + | Narrative | Performed At | + + + | GFR is estimated using the MDRD equation recommended by the | [facility] | | National Kidney Disease Education Program. Estimated GFR | LABORATORY | | Interpretive Information: <60 mL/min/1.73 sq m | SERVICES, CORE | | Chronic Kidney Disease <15 mL/min/1.73 sq m | | | Kidney Failure Estimated GFR greater that 60 mL/min/1.73 sq m is of | | | limited clinical value. The MDRD equation is not valid in the | | | following situations: - Patients under 18 years of age - Severe | | | malnutrition or obesity - Vegetarian diet - Rapidly changing kidney | | | function - Amputees, paraplegics, or other muscle-wasting diseses | | + + + + + + + + | Performing | Address | City/State/Zipcode | Phone Number | | Organization | | | | + + + + + | [facility] | [address] | [place] [address] | | | NATALEE WORTHINGTON | [address] | | | + + + + + MAGNESIUM, PLASMA (10/10/2017 2:02 PM PDT) + +-------+ + + + | Component | Value | Ref Range | Performed | Pathologist | | | | | At | Signature | + +-------+ + + + | MAGNESIUM,P | 1.9 | 1.6 - 2.6 mg/dL | [facility] | | | LASMA | | | LABORATORY | | | | | | SERVICES, | | | | | | CORE | | + +-------+ + + + + + | Specimen | + + | Blood - Blood | | (substance) | + + + + + | Narrative | Performed At | + + + | Reference range change effective 12/11/16. | [facility] | | | LABORATORY | | | NATALEE WORTHINGTON | + + + + + + + + | Performing | Address | City/State/Zipcode | Phone Number | | Organization | | | | + + + + + | [facility] | [address] | [place] [address] | | | NATALEE WORTHINGTON | [address] | | | + + + + + OPERATION RECORD (10/10/2017 12:40 PM PDT) + + | Procedure Note | + + | Magdiel Stock MD - 10/10/2017 12:40 PM PDT Date of Service: 10/10/2017 Attending | | Surgeon: Magdiel Stock MD Jira Administrator(s): Cecilia Jackson, | | . Preoperative Diagnoses: 1. Cranioplasty infection and wound | | leakage.2. Seizures.Postoperative Diagnoses: 1. Cranioplasty infection and wound | | leakage.2. Seizures.Procedure Performed: 1. Right-sided cranial wound exploration and | | washout.2. Removal of synthetic cranioplasty.3. Washout of epidural abscess.Estimated | | Blood Loss: 200 cc.Fluids: Please see anesthesia record.Specimens: Multiple swabs and | | tissue samples were sent from both the subgaleal space and the epidural space. They | | were sent to Microbiology. The bone flap was also sent.Complications: None.Drains: | | Subgaleal KENDALL drain to suction.Disposition: Direct to the neurologic ICU.Findings: | | There was substantial purulence under pressure after the bone flap was removed. | | Multiple culture swabs were sent of the subgaleal space and of the epidural pus. The | | bone flap was removed and sent to Micro. The skin was closed with interrupted | | nylons.Indications: This is a 67-year-old male. Please see [facility] for full details. He | | was admitted to the trauma service after having undergone a trauma. He had 2 prior | | synthetic cranioplasties from a previous trauma. During this admission, his wound | | started to leak. This was initially oversewn with a nylon. However, due to continued | | leakage and concern for infection, he was indicated for the above procedure. A PARQ | | session was held with the patient's next of kin, and the consent was signed.Procedure In | | Detail: Diogenes Temple was identified in the preoperative holding area. He was then | | brought back to the operative suite, where he was intubated under general endotracheal | | anesthesia, placed in supine position on a regular table. All pressure points were | | carefully padded. A large gel bump was placed underneath his right shoulder, and his | | head was placed on a horseshoe head rest with the right side up. We then clipped all of | | the hair from the right side of his head and around his incision. The area was then | | prepped and draped in the usual sterile fashion using ChloraPrep and Hibiclens. 10 cc | | of 0.25% Marcaine with epinephrine was injected for local anesthetic. A preoperative | | pause was then done to confirm the correct patient, side, position, and procedure. This | | was all correct so we proceeded. He received weight appropriate dosing of antibiotics | | preoperatively. A 10 blade was used to open up the planned incision. We carefully | | dissected down to the bone using Bovie cautery. At this point, we cultured multiple | | swabs from the subgaleal space. It looked somewhat suspicious. We also sent some | | tissue from right underneath where his wound was leaking. This was all sent to the | | microbiology lab. After reflecting a single myocutaneous flap anteriorly and securing | | it with self-retaining penetrating towel clamp retractors, we then began to remove the | | bone flap. After removing all of the screws from the hardware and gently lifting up on | | the bone flap, a large amount of purulent material under pressure came out from | | underneath the bone flap. This was immediately cultured multiple times and sent to | | Microbiology. We then removed the bone flap and sent this off as well. The epidural | | space was then washed out extensively. We also debrided the dural layer as there was a | | layer of purulent film, which was removed with mari and Susan 1. We also used a | | rongeur to go around the bone edges to ensure all of this was mechanically debrided as | | well. We finished with mechanically debriding the underside of the skin flap as there | | was another layer of purulent material on this surface as well. After all of the tissue | | was seen to be freed up from the underlying dura and bone, we then copiously irrigated | | at least another liter of bacitracin solution and turned our attention to closure. A KENDALL | | drain was tunneled posteriorly and secured to the scalp using a 2-0 nylon suture. We | | then turned our attention to closure. The galea was reapproximated using 0 interrupted | | Vicryl sutures as well as 3-0 interrupted inverted Vicryl sutures. The skin was closed | | using interrupted vertical mattress sutures with 2-0 nylons. Once this was completed, | | we then cleaned the incision and placed bacitracin ointment and Telfa on top. A large | | CraniCap was applied as well. KENDALL bulb was placed to suction. The patient was then | | turned back into a supine position on the operative table. At this point, the general | | surgery team came and did their planned surgical operation as well. Please see their | | separate operative dictation for details. All counts were correct at the end x2.Cecilia | | FRANKIE Barger was present for the critical portions of the procedure as described in | | the note for this encounter.Sonal Nunez MDUN[facility] [id number] [facility] | | [place] [id number] Orina, MDFAH/MODLDD: | | 10/10/2017 11:52:15DT: 10/10/2017 12:40:41Job #: [id number] | | | | | |I was present for the critical portions of the procedure as described in the note for this encounter. | | | |Magdiel Stock MD | | | |Magdiel Stock MD | |[address] | |[address] | |[facility] | |[place] [address] | |[phone] | | | | | |Magdiel Stock MD | |JAYLAN/DUC | | | | | | /[id number] | + + X-RAY ABDOMEN 1 VIEW (10/10/2017 12:17 PM PDT) + + | Specimen | + + | | + + + + + | Narrative | Performed At | + + + | - At the time of the study, no professional interpretation was | | | requested. - | | + + + X-RAY FLUOROSCOPY IN [place] <= 1 HOUR (10/10/2017 12:16 PM PDT) + + | Specimen | + + | | + + + + + | Narrative | Performed At | + + + | - At the time of the study, no professional interpretation was | | | requested. - | | + + + CULTURE, TISSUE (10/10/2017 9:03 AM PDT) + + + + + + | Component | Value | Ref Range | Performed | Pathologist | | | | | At | Signature | + + + + + + | CULTURE | Pseudomonas aeruginosa | | [facility] | | | RESULT | (A) | | [facility] - | | | | | | [place] | | + + + + + + + + | Specimen | + + | Tissue - Head | | structure (body | | structure) | + + + + + | Narrative | Performed At | + + + | Culture Report: 1+ Pseudomonas aeruginosa No anaerobic organisms | [facility] - | | isolated Gram Stain: No squamous epithelial cells Few | [facility] - | | polymorphonuclear cells No organisms seen | [place] | + + + + + + + + | Organism | Antibiotic | Method | Susceptibility | + + + + + | Pseudomonas | Cefepime | SUSCEPTIBILITY-GABRIEL | Sensitive | | aeruginosa | | | | + + + + + | Pseudomonas | Ceftazidime | SUSCEPTIBILITY-GABRIEL | Resistant | | aeruginosa | | | | + + + + + | Pseudomonas | Ciprofloxacin | SUSCEPTIBILITY-GABRIEL | Sensitive | | aeruginosa | | | | + + + + + | Pseudomonas | Gentamicin | SUSCEPTIBILITY-GABRIEL | Sensitive | | aeruginosa | | | | + + + + + | Pseudomonas | Meropenem | SUSCEPTIBILITY-GABRIEL | Sensitive | | aeruginosa | | | | + + + + + | Pseudomonas | Piperacillin/Tazobac | SUSCEPTIBILITY-GABRIEL | Sensitive | | aeruginosa | ch | | | + + + + + | Pseudomonas | Tobramycin | SUSCEPTIBILITY-GABRIEL | Sensitive | | aeruginosa | | | | + + + + + + + + + + | Performing | Address | City/State/Zipcode | Phone Number | | Organization | | | | + + + + + | [facility] | [address] | [place] [address] | | | [place] | | | | + + + + + CULTURE, FUNGAL EXCEPT BLOOD, SKIN, HAIR, NAIL (10/10/2017 9:00 AM PDT) + + | Specimen | + + | Swab - Head | | structure (body | | structure) | + + + + + | Narrative | Performed At | + + + | Culture Report: No fungus isolated at 3 weeks. | [facility] | | | [facility] - | | | [place] | + + + + + + + + | Performing | Address | City/State/Zipcode | Phone Number | | Organization | | | | + + + + + | [facility] | [address] | [place] [address] | | | [place] | | | | + + + + + CULTURE, WOUND DEEP W/ ANAEROBE (10/10/2017 9:00 AM PDT) + + + + + + | Component | Value | Ref Range | Performed | Pathologist | | | | | At | Signature | + + + + + + | CULTURE | Pseudomonas aeruginosa | | [facility] | | | RESULT | (A) | | [facility] - | | | | | | [place] | | + + + + + + + + | Specimen | + + | Swab - Head | | structure (body | | structure) | + + + + + | Narrative | Performed At | + + + | Culture Report: 1+ Pseudomonas aeruginosa Refer to culture | [facility] - | | collected 10/10/17 at 0903 for susceptibilities No anaerobic | [facility] - | | organisms isolated Gram Stain: No squamous epithelial cells | [facility] | | Many polymorphonuclear cells No organisms seen | | + + + + + + + + | Performing | Address | City/State/Zipcode | Phone Number | | Organization | | | | + + + + + | [facility] | [address] | [place] [address] | | | [facility] | | | | + + + + + CULTURE, AFB (ALL SPEC TYPES EXCEPT BLOOD) (10/10/2017 9:00 AM PDT) + + | Specimen | + + | Swab - Head | | structure (body | | structure) | + + + + + | Narrative | Performed At | + + + | Culture Report: No acid fast bacteria isolated at 6 weeks. AFB | [facility] | | Smear: AFB not detected | [facility] - | | | [place] | + + + + + + + + | Performing | Address | City/State/Zipcode | Phone Number | | Organization | | | | + + + + + | [facility] | [address] | [place] [address] | | | [place] | | | | + + + + + CULTURE, FUNGAL EXCEPT BLOOD, SKIN, HAIR, NAIL (10/10/2017 9:00 AM PDT) + + | Specimen | + + | Swab - Head | | structure (body | | structure) | + + + + + | Narrative | Performed At | + + + | Culture Report: No fungus isolated at 3 weeks. | [facility] | | | [facility] - | | | [place] | + + + + + + + + | Performing | Address | City/State/Zipcode | Phone Number | | Organization | | | | + + + + + | [facility] | [address] | [place] [address] | | | [place] | | | | + + + + + CULTURE, WOUND DEEP W/ ANAEROBE (10/10/2017 9:00 AM PDT) + + + + + + | Component | Value | Ref Range | Performed | Pathologist | | | | | At | Signature | + + + + + + | CULTURE | Pseudomonas aeruginosa | | [facility] | | | RESULT | (A) | | [facility] - | | | | | | [place] | | + + + + + + + + | Specimen | + + | Swab - Head | | structure (body | | structure) | + + + + + | Narrative | Performed At | + + + | Culture Report: Rare Pseudomonas aeruginosa Refer to culture | [facility] - | | collected 10/10/17 at 0903 for susceptibilities No anaerobic | [facility] - | | organisms isolated Gram Stain: No squamous epithelial cells | [facility] | | Many polymorphonuclear cells No organisms seen | | + + + + + + + + | Performing | Address | City/State/Zipcode | Phone Number | | Organization | | | | + + + + + | [facility] | [address] | [place] [address] | | | [place] | | | | + + + + + CULTURE, AFB (ALL SPEC TYPES EXCEPT BLOOD) (10/10/2017 9:00 AM PDT) + + | Specimen | + + | Swab - Head | | structure (body | | structure) | + + + + + | Narrative | Performed At | + + + | Culture Report: No acid fast bacteria isolated at 6 weeks. AFB | [facility] | | Smear: AFB not detected | [facility] - | | | [place] | + + + + + + + + | Performing | Address | City/State/Zipcode | Phone Number | | Organization | | | | + + + + + | [facility] | [address] | [place] [address] | | | [place] | | | | + + + + + CULTURE, TISSUE (10/10/2017 8:50 AM PDT) + + + + + + | Component | Value | Ref Range | Performed | Pathologist | | | | | At | Signature | + + + + + + | CULTURE | Pseudomonas aeruginosa | | [facility] | | | RESULT | (A) | | [facility] - | | | | | | [place] | | + + + + + + + + | Specimen | + + | Tissue - Head | | structure (body | | structure) | + + + + + | Narrative | Performed At | + + + | Culture Report: Rare Pseudomonas aeruginosa Refer to culture | [facility] - | | collected 10/10/17 at 0903 for susceptibilities No anaerobic | [facility] - | | organisms isolated Gram Stain: No squamous epithelial cells | [facility] | | Few polymorphonuclear cells No organisms seen | | + + + + + + + + | Performing | Address | City/State/Zipcode | Phone Number | | Organization | | | | + + + + + | [facility] | [address] | [place] [address] | | | [facility] | | | | + + + + + CULTURE, TISSUE (10/10/2017 8:41 AM PDT) + + | Specimen | + + | Tissue - Head | | structure (body | | structure) | + + + + + | Narrative | Performed At | + + + | Culture Report: No growth No anaerobic organisms isolated | [facility] - | | Gram Stain: No squamous epithelial cells No polymorphonuclear | [facility] - | | cells No organisms seen | [place] | + + + + + + + + | Performing | Address | City/State/Zipcode | Phone Number | | Organization | | | | + + + + + | [facility] | [address] | [place] [address] | | | [place] | | | | + + + + + CULTURE, FUNGAL EXCEPT BLOOD, SKIN, HAIR, NAIL (10/10/2017 8:38 AM PDT) + + | Specimen | + + | Swab - Head | | structure (body | | structure) | + + + + + | Narrative | Performed At | + + + | Culture Report: No fungus isolated at 3 weeks. | [facility] | | | [facility] - | | | [place] | + + + + + + + + | Performing | Address | City/State/Zipcode | Phone Number | | Organization | | | | + + + + + | [facility] | [address] | [place] [address] | | | [facility] | | | | + + + + + CULTURE, WOUND DEEP W/ ANAEROBE (10/10/2017 8:38 AM PDT) + + + + + + | Component | Value | Ref Range | Performed | Pathologist | | | | | At | Signature | + + + + + + | CULTURE | Pseudomonas aeruginosa | | [facility] | | | RESULT | (A) | | [facility] - | | | | | | [place] | | + + + + + + + + | Specimen | + + | Swab - Head | | structure (body | | structure) | + + + + + | Narrative | Performed At | + + + | Culture Report: 1+ Pseudomonas aeruginosa Refer to culture | [facility] - | | collected 10/10/17 at 0903 for susceptibilities No anaerobic | [facility] - | | organisms isolated Gram Stain: No squamous epithelial cells | [place] | | Moderate polymorphonuclear cells No organisms seen | | + + + + + + + + | Performing | Address | City/State/Zipcode | Phone Number | | Organization | | | | + + + + + | [facility] | [address] | [place] [address] | | | [facility] | | | | + + + + + CULTURE, AFB (ALL SPEC TYPES EXCEPT BLOOD) (10/10/2017 8:38 AM PDT) + + | Specimen | + + | Swab - Head | | structure (body | | structure) | + + + + + | Narrative | Performed At | + + + | Culture Report: No acid fast bacteria isolated at 6 weeks. AFB | [facility] - | | Smear: AFB not detected | [facility] - | | | [place] | + + + + + + + + | Performing | Address | City/State/Zipcode | Phone Number | | Organization | | | | + + + + + | [facility] | [address] | [place] [address] | | | [facility] | | | | + + + + + CULTURE, FUNGAL EXCEPT BLOOD, SKIN, HAIR, NAIL (10/10/2017 8:38 AM PDT) + + | Specimen | + + | Swab - Head | | structure (body | | structure) | + + + + + | Narrative | Performed At | + + + | Culture Report: No fungus isolated at 3 weeks. | [facility] | | | [facility] - | | | [place] | + + + + + + + + | Performing | Address | City/State/Zipcode | Phone Number | | Organization | | | | + + + + + | [facility] | [address] | [place] [address] | | | [place] | | | | + + + + + CULTURE, WOUND DEEP W/ ANAEROBE (10/10/2017 8:38 AM PDT) + + + + + + | Component | Value | Ref Range | Performed | Pathologist | | | | | At | Signature | + + + + + + | CULTURE | Pseudomonas aeruginosa | | [facility] | | | RESULT | (A) | | [facility] - | | | | | | [place] | | + + + + + + + + | Specimen | + + | Swab - Head | | structure (body | | structure) | + + + + + | Narrative | Performed At | + + + | Culture Report: 1+ Pseudomonas aeruginosa Refer to culture | [facility] - | | collected 10/10/17 at 0903 for susceptibilities No anaerobic | [facility] - | | organisms isolated Gram Stain: No squamous epithelial cells | [place] | | Moderate polymorphonuclear cells No organisms seen | | + + + + + + + + | Performing | Address | City/State/Zipcode | Phone Number | | Organization | | | | + + + + + | [facility] | [address] | [place] [address] | | | [place] | | | | + + + + + CULTURE, AFB (ALL SPEC TYPES EXCEPT BLOOD) (10/10/2017 8:38 AM PDT) + + | Specimen | + + | Swab - Head | | structure (body | | structure) | + + + + + | Narrative | Performed At | + + + | Culture Report: No acid fast bacteria isolated at 6 weeks. AFB | [facility] | | Smear: AFB not detected | [facility] - | | | [place] | + + + + + + + + | Performing | Address | City/State/Zipcode | Phone Number | | Organization | | | | + + + + + | [facility] | [address] | [place] [address] | | | [place] | | | | + + + + + CULTURE, FUNGAL EXCEPT BLOOD, SKIN, HAIR, NAIL (10/10/2017 8:31 AM PDT) + + | Specimen | + + | Swab - Head | | structure (body | | structure) | + + + + + | Narrative | Performed At | + + + | Culture Report: No fungus isolated at 3 weeks. | [facility] | | | [facility] | | | [facility] | + + + + + + + + | Performing | Address | City/State/Zipcode | Phone Number | | Organization | | | | + + + + + | [facility] | [address] | [place] [address] | | | [place] | | | | + + + + + CULTURE, WOUND DEEP W/ ANAEROBE (10/10/2017 8:31 AM PDT) + + + + + + | Component | Value | Ref Range | Performed | Pathologist | | | | | At | Signature | + + + + + + | CULTURE | Pseudomonas aeruginosa | | [facility] | | | RESULT | (A) | | [facility] - | | | | | | [place] | | + + + + + + + + | Specimen | + + | Swab - Head | | structure (body | | structure) | + + + + + | Narrative | Performed At | + + + | Culture Report: 1+ Pseudomonas aeruginosa Refer to culture | [facility] - | | collected 10/10/17 at 0903 for susceptibilities No anaerobic | [facility] - | | organisms isolated Gram Stain: No squamous epithelial cells | [place] | | Moderate polymorphonuclear cells No organisms seen | | + + + + + + + + | Performing | Address | City/State/Zipcode | Phone Number | | Organization | | | | + + + + + | [facility] | [address] | [place] [address] | | | [place] | | | | + + + + + CULTURE, AFB (ALL SPEC TYPES EXCEPT BLOOD) (10/10/2017 8:31 AM PDT) + + | Specimen | + + | Swab - Head | | structure (body | | structure) | + + + + + | Narrative | Performed At | + + + | Culture Report: No acid fast bacteria isolated at 6 weeks. 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 FINDINGS: BRAIN: | RECOGNITION 2 | | Postsurgical changes of right hemicranioplasty are again noted with | | | stable underlying extra-axial fluid collection along the right | | | frontoparietal lobes which measures 11 mm in thickness. Right temporal | | | encephalomalacia is again noted. There is 2 mm leftward midline | | | shift, unchanged. The ventricles are stable in size and morphology. | | | No evidence of hemorrhage, mass, or acute infarction. SOFT | | | TISSUES: A nasogastric tube is partially visualized. SKULL AND SKULL | | | BASE: Postsurgical changes of right hemicranial plasty are again | | | noted. Mastoids and middle ears are unremarkable. FACE/ORBITS: | | | Visualized portions are unremarkable. PARANASAL SINUSES: There is | | | mild mucosal thickening within the maxillary sinuses with a small | | | retention cyst again noted within the left maxillary sinus. | | | IMPRESSION: Stable postsurgical changes of right hemicranioplasty | | | with underlying extra-axial fluid collection and unchanged 2 mm | | | leftward midline shift. I have personally reviewed the images and, | | | if necessary, edited the report. I agree with the report as now | | | presented. Final signature: Daniel Armijo MD 10/10/2017 8:22 | | | AM Preliminary: Shun Carpio MD Dictation initiated: Shun Radford | | MD Balaji 10/10/2017 3:05 AM | | + + + + + | Procedure Note | + + | Service Account, Radiant Res In Interface - 10/10/2017 8:23 AM PDT EXAM: CT HEAD | | WITHOUT CONTRAST HISTORY: Seizure following traumatic brain injury COMPARISON: | | 09/30/2017 TECHNIQUE: CT of the head without intravenous contrast. FINDINGS: BRAIN: | | Postsurgical changes of right hemicranioplasty are again noted with stable underlying | | extra-axial fluid collection along the right frontoparietal lobes which measures 11 mm | | in thickness. Right temporal encephalomalacia is again noted. There is 2 mm leftward | | midline shift, unchanged. The ventricles are stable in size and morphology. No evidence | | of hemorrhage, mass, or acute infarction. SOFT TISSUES: A nasogastric tube is partially | | visualized.SKULL AND SKULL BASE: Postsurgical changes of right hemicranial plasty are | | again noted. Mastoids and middle ears are unremarkable.FACE/ORBITS: Visualized portions | | are unremarkable.PARANASAL SINUSES: There is mild mucosal thickening within the | | maxillary sinuses with a small retention cyst again noted within the left maxillary | | sinus. IMPRESSION: Stable postsurgical changes of right hemicranioplasty with underlying | | extra-axial fluid collection and unchanged 2 mm leftward midline shift. I have | | personally reviewed the images and, if necessary, edited the report. I agree with the | | report as now presented. Final signature: Daniel Armijo MD 10/10/2017 8:22 AM | | Preliminary: Shun Carpio MD Dictation initiated: Shun Carpio MD 10/10/2017 3:05 | | AM | |IMPRESSION: | | | |Stable postsurgical changes of right hemicranioplasty with underlying extra-axial fluid col lection and unchanged 2 mm leftward midline shift. | | | |I have personally reviewed the images and, if necessary, edited the report. I agree with th e report as now presented. | | | |Final signature: Daniel Armijo MD 10/10/2017 8:22 AM | |Preliminary: Shun Carpio MD | |Dictation initiated: Shun Carpio MD 10/10/2017 3:05 AM | + + + +---------+ + + | Performing | Address | City/State/Zipcode | Phone Number | | Organization | | | | + +---------+ + + | [facility] | | | | | VOICE RECOGNITION 2 | | | | + +---------+ + + VALPROIC ACID, PLASMA (10/10/2017 2:40 AM PDT) + + + + + + | Component | Value | Ref Range | Performed | Pathologist | | | | | At | Signature | + + + + + + | VALPROIC | 23.8 (L) | 50.0 - 100.0 | [facility] | | | ACID | | ug/mL | LABORATORY | | | | | | SERVICES, | | | | | | CORE | | + + + + + + + + | Specimen | + + | Blood - Blood | | (substance) | + + + + + + + | Performing | Address | City/State/Zipcode | Phone Number | | Organization | | | | + + + + + | [facility] | [address] | [place] [address] | | | SERVICES, CORE | [address] | | | + + + + + CBC (HEMOGRAM) ONLY (10/10/2017 2:38 AM PDT) + + + + + + | Component | Value | Ref Range | Performed | Pathologist | | | | | At | Signature | + + + + + + | WHITE CELL | 9.13 | 3.50 - 10.80 | [facility] | | | COUNT | | K/cu mm | LABORATORY | | | | | | SERVICES, | | | | | | CORE | | + + + + + + | RED CELL | 4.43 (L) | 4.50 - 6.00 | [facility] | | | COUNT | | M/cu mm | LABORATORY | | | | | | SERVICES, | | | | | | CORE | | + + + + + + | HEMOGLOBIN | 13.0 (L) | 13.5 - 17.5 | [facility] | | | | | g/dL | LABORATORY | | | | | | SERVICES, | | | | | | CORE | | + + + + + + | HEMATOCRIT | 41.7 | 41.0 - 53.0 % | [facility] | | | | | | LABORATORY | | | | | | SERVICES, | | | | | | CORE | | + + + + + + | MCV | 94.1 | 80.0 - 100.0 fL | [facility] | | | | | | LABORATORY | | | | | | SERVICES, | | | | | | CORE | | + + + + + + | MCHC | 31.2 (L) | 32.0 - 36.0 | [facility] | | | | | g/dL | LABORATORY | | | | | | SERVICES, | | | | | | CORE | | + + + + + + | RDW SD | 57.5 (H) | 35.1 - 46.3 fL | [facility] | | | | | | LABORATORY | | | | | | SERVICES, | | | | | | CORE | | + + + + + + | PLATELET | 221 | 150 - 400 K/cu | [facility] | | | COUNT | | mm | LABORATORY | | | | | | SERVICES, | | | | | | CORE | | + + + + + + | MPV | 9.9 | 9.7 - 12.3 fL | [facility] | | | | | | LABORATORY | | | | | | SERVICES, | | | | | | CORE | | + + + + + + | NRBC% | 0.0 | 0.0 - 0.3 % | [facility] | | | | | | LABORATORY | | | | | | SERVICES, | | | | | | CORE | | + + + + + + | NRBC# | 0.00 | 0.00 - 0.02 | [facility] | | | | | K/cu mm | LABORATORY | | | | | | SERVICES, | | | | | | CORE | | + + + + + + + + | Specimen | + + | Blood - Blood | | (substance) | + + + + + | Narrative | Performed At | + + + | New reference ranges for MCV, MCHC, PLT, IG% and IG# effective | [facility] | | 09/05/2017 | LABORATORY | | | [address] [place] | + + + + + + + + | Performing | Address | City/State/Zipcode | Phone Number | | Organization | | | | + + + + + | [facility] | [address] | [place] [address] | | | [address] [place] | [address] | | | + + + + + MAGNESIUM, PLASMA (10/10/2017 2:36 AM PDT) + +-------+ + + + | Component | Value | Ref Range | Performed | Pathologist | | | | | At | Signature | + +-------+ + + + | MAGNESIUM,P | 2.2 | 1.6 - 2.6 mg/dL | [facility] | | | LASMA | | | LABORATORY | | | | | | SERVICES, | | | | | | CORE | | + +-------+ + + + + + | Specimen | + + | Blood - Blood | | (substance) | + + + + + | Narrative | Performed At | + + + | Reference range change effective 12/11/16. | [facility] | | | LABORATORY | | | [address] | + + + + + + + + | Performing | Address | City/State/Zipcode | Phone Number | | Organization | | | | + + + + + | [facility] | [address] | [place] [address] | | | [address] [place] | [address] | | | + + + + + RENAL FUNCTION SET (NA,K,CL,CO2,BUN,CREAT,GLUC,CA,PHOS,ALB ) (10/10/2017 2:36 AM PDT) + + + + + + | Component | Value | Ref Range | Performed | Pathologist | | | | | At | Signature | + + + + + + | GLUCOSE, | 115 (H) | 70 - 99 mg/dL | [facility] | | | PLASMA | | | LABORATORY | | | (LAB) | | | SERVICES, | | | | | | CORE | | + + + + + + | BUN, PLASMA | 20 | 6 - 20 mg/dL | [facility] | | | (LAB) | | | LABORATORY | | | | | | SERVICES, | | | | | | CORE | | + + + + + + | CREATININE | 0.63 (L) | 0.70 - 1.30 | [facility] | | | PLASMA | | mg/dL | LABORATORY | | | (LAB) | | | SERVICES, | | | | | | CORE | | + + + + + + | EGFR | >60 | >60 mL/min | [facility] | | | - | | | LABORATORY | | | SUDANESE | | | SERVICES, | | | | | | CORE | | + + + + + + | EGFR NON | >60 | >60 mL/min | [facility] | | | -KAYE | | | LABORATORY | | | RICAN | | | SERVICES, | | | | | | CORE | | + + + + + + | SODIUM, | 141 | 136 - 145 | [facility] | | | PLASMA | | mmol/L | LABORATORY | | | (LAB) | | | SERVICES, | | | | | | CORE | | + + + + + + | POTASSIUM, | 3.6 | 3.4 - 5.0 | [facility] | | | PLASMA | | mmol/L | LABORATORY | | | (LAB) | | | SERVICES, | | | | | | CORE | | + + + + + + | CHLORIDE, | 102 | 97 - 108 mmol/L | [facility] | | | PLASMA | | | LABORATORY | | | (LAB) | | | SERVICES, | | | | | | CORE | | + + + + + + | TOTAL CO2, | 22 | 21 - 32 mmol/L | [facility] | | | PLASMA | | | LABORATORY | | | (LAB) | | | SERVICES, | | | | | | CORE | | + + + + + + | CALCIUM, | 8.9 | 8.6 - 10.2 | [facility] | | | PLASMA | | mg/dL | LABORATORY | | | (LAB) | | | SERVICES, | | | | | | CORE | | + + + + + + | CALCIUM(ALB | 9.4 | 8.6 - 10.2 | [facility] | | | CORRECTED) | | mg/dL | LABORATORY | | | | | | SERVICES, | | | | | | CORE | | + + + + + + | ALBUMIN, | 3.4 (L) | 3.5 - 4.7 g/dL | [facility] | | | PLASMA | | | LABORATORY | | | (LAB) | | | SERVICES, | | | | | | CORE | | + + + + + + | PHOSPHORUS, | 3.8 | 2.4 - 4.7 mg/dL | [facility] | | | PLASMA | | | LABORATORY | | | (LAB) | | | SERVICES, | | | | | | CORE | | + + + + + + | POTASSIUM | No Hemo | | [facility] | | | CMNT | | | LABORATORY | | | | | | SERVICES, | | | | | | CORE | | + + + + + + | ANION GAP | 17 (H) | 4 - 11 mmol/L | [facility] | | | | | | LABORATORY | | | | | | SERVICES, | | | | | | CORE | | + + + + + + | ANION | 18 (H) | 4 - 11 mmol/L | [facility] | | | GAP(ALB | | | LABORATORY | | | CORRECTED) | | | SERVICES, | | | | | | CORE | | + + + + + + + + | Specimen | + + | Blood - Blood | | (substance) | + + + + + | Narrative | Performed At | + + + | GFR is estimated using the MDRD equation recommended by the | [facility] | | National Kidney Disease Education Program. Estimated GFR | LABORATORY | | Interpretive Information: <60 mL/min/1.73 sq m | SERVICES, CORE | | Chronic Kidney Disease <15 mL/min/1.73 sq m | | | Kidney Failure Estimated GFR greater that 60 mL/min/1.73 sq m is of | | | limited clinical value. The MDRD equation is not valid in the | | | following situations: - Patients under 18 years of age - Severe | | | malnutrition or obesity - Vegetarian diet - Rapidly changing kidney | | | function - Amputees, paraplegics, or other muscle-wasting diseses | | + + + + + + + + | Performing | Address | City/State/Zipcode | Phone Number | | Organization | | | | + + + + + | [facility] | [address] | [place] [address] | | | SERVICES, CORE | [address] | | | + + + + + 12 LEAD ECG (10/10/2017 2:08 AM PDT) + + + + + + | Component | Value | Ref Range | Performed | Pathologist | | | | | At | Signature | + + + + + + | VENTRICULAR | 117 | bpm | [facility] | | | RATE | | | OF | | | | | | CARDIOLOGY | | + + + + + + | ATRIAL RATE | 118 | ms | [facility] | | | | | | OF | | | | | | CARDIOLOGY | | + + + + + + | P-R | 139 | ms | [facility] | | | INTERVAL | | | OF | | | | | | CARDIOLOGY | | + + + + + + | P AXIS | 84 | deg | [facility] | | | | | | OF | | | | | | CARDIOLOGY | | + + + + + + | QRS | 134 | ms | [facility] | | | DURATION | | | OF | | | | | | CARDIOLOGY | | + + + + + + | QT | 354 | ms | [facility] | | | | | | OF | | | | | | CARDIOLOGY | | + + + + + + | QTC-HALIMA | 493 | ms | [facility] | | | | | | OF | | | | | | CARDIOLOGY | | + + + + + + | R AXIS | 107 | deg | [facility] | | | | | | OF | | | | | | CARDIOLOGY | | + + + + + + | T AXIS | 40 | deg | [facility] | | | | | | OF | | | | | | CARDIOLOGY | | + + + + + + | ECG | Sinus tachycardia | | [facility] | | | IMPRESSION | | | OF | | | | | | CARDIOLOGY | | + + + + + + | ECG | Right bundle branch | | [facility] | | | IMPRESSION | block | | OF | | | | | | CARDIOLOGY | | + + + + + + | ECG | prolonged QT interval- | | [facility] | | | IMPRESSION | ABNORMAL ECG - | | OF | | | | | | CARDIOLOGY | | + + + + + + | ECG | Electronically signed | | [facility] | | | IMPRESSION | by: PAULO CAVAZOS | | OF | | | | 10-11-2017 16:38:04 | | CARDIOLOGY | | + + + + + + + + | Specimen | + + | | + + + + + | Narrative | Performed At | + + + | | | + + + + + + + + | Performing | Address | City/State/Zipcode | Phone Number | | Organization | | | | + + + + + | [facility] | [address] | [place], [place] | | | CARDIOLOGY | [address] | [address] | | + + + + + PRODUCT - RED CELLS LEUKOREDUCED (10/09/2017 5:12 PM PDT) + + + + + + | Component | Value | Ref Range | Performed | Pathologist | | | | | At | Signature | + + + + + + | PRODUCT | -1 RED BLOOD CELL | | [facility] | | | DESCRIPTION | ADENINE-SALINE ADDED | | LABORATORY | | | | LEUKOCYTE | | SERVICES, | | | | | | TRANSFUSION | | | | | | MEDICINE | | + + + + + + | PRODUCT | [id number] | | [facility] | | | UNIT # | | | LABORATORY | | | | | | SERVICES, | | | | | | TRANSFUSION | | | | | | MEDICINE | | + + + + + + | UNIT ABO | O | | [facility] | | | | | | LABORATORY | | | | | | SERVICES, | | | | | | TRANSFUSION | | | | | | MEDICINE | | + + + + + + | UNIT RH | POS | | [facility] | | | | | | LABORATORY | | | | | | SERVICES, | | | | | | TRANSFUSION | | | | | | MEDICINE | | + + + + + + | STATUS OF | Returned to Blood Bank | | [facility] | | | UNIT | | | LABORATORY | | | | | | SERVICES, | | | | | | TRANSFUSION | | | | | | MEDICINE | | + + + + + + | EXPIRATION | [id number] | | [facility] | | | DATE | | | LABORATORY | | | | | | SERVICES, | | | | | | TRANSFUSION | | | | | | MEDICINE | | + + + + + + | BLOOD TYPE | [phone] | | [facility] | | | BARCODE | | | LABORATORY | | | | | | SERVICES, | | | | | | TRANSFUSION | | | | | | MEDICINE | | + + + + + + | BLOOD | [id number] | | [facility] | | | PRODUCT | | | LABORATORY | | | CODE | | | SERVICES, | | | | | | TRANSFUSION | | | | | | MEDICINE | | + + + + + + + + | Specimen | + + | | + + + + + + + | Performing | Address | City/State/Zipcode | Phone Number | | Organization | | | | + + + + + | [facility] | [address] | [place] [address] | | | SERVICES, | [address] | | | | TRANSFUSION MEDICINE | | | | + + + + + PRODUCT - RED CELLS LEUKOREDUCED (10/09/2017 5:12 PM PDT) + + + + + + | Component | Value | Ref Range | Performed | Pathologist | | | | | At | Signature | + + + + + + | PRODUCT | -1 RED BLOOD CELL | | [facility] | | | DESCRIPTION | ADENINE-SALINE ADDED | | LABORATORY | | | | LEUKOCYTE | | SERVICES, | | | | | | TRANSFUSION | | | | | | MEDICINE | | + + + + + + | PRODUCT | [id number] | | [facility] | | | UNIT # | | | LABORATORY | | | | | | SERVICES, | | | | | | TRANSFUSION | | | | | | MEDICINE | | + + + + + + | UNIT ABO | O | | [facility] | | | | | | LABORATORY | | | | | | SERVICES, | | | | | | TRANSFUSION | | | | | | MEDICINE | | + + + + + + | UNIT RH | POS | | [facility] | | | | | | LABORATORY | | | | | | SERVICES, | | | | | | TRANSFUSION | | | | | | MEDICINE | | + + + + + + | STATUS OF | Returned to Blood Bank | | [facility] | | | UNIT | | | LABORATORY | | | | | | SERVICES, | | | | | | TRANSFUSION | | | | | | MEDICINE | | + + + + + + | EXPIRATION | [id number] | | [facility] | | | DATE | | | LABORATORY | | | | | | SERVICES, | | | | | | TRANSFUSION | | | | | | MEDICINE | | + + + + + + | BLOOD TYPE | [phone] | | [facility] | | | BARCODE | | | LABORATORY | | | | | | SERVICES, | | | | | | TRANSFUSION | | | | | | MEDICINE | | + + + + + + | BLOOD | [id number] | | [facility] | | | PRODUCT | | | LABORATORY | | | CODE | | | SERVICES, | | | | | | TRANSFUSION | | | | | | MEDICINE | | + + + + + + + + | Specimen | + + | | + + + + + + + | Performing | Address | City/State/Zipcode | Phone Number | | Organization | | | | + + + + + | [facility] | [address] | [place] [address] | | | SERVICES, | [address] | | | | TRANSFUSION MEDICINE | | | | + + + + + ANTIBODY IDENTIFICATION (10/09/2017 5:01 PM PDT) + + + + + + | Component | Value | Ref Range | Performed | Pathologist | | | | | At | Signature | + + + + + + | ANTIBODY 1 | Antibody present, unable | | [facility] | | | | to identify | | LABORATORY | | | | | | SERVICES, | | | | | | TRANSFUSION | | | | | | MEDICINE | | + + + + + + + + | Specimen | + + | Blood - Blood | | (substance) | + + + + + + + | Performing | Address | City/State/Zipcode | Phone Number | | Organization | | | | + + + + + | [facility] | [address] | [place] [address] | | | SERVICES, | [address] | | | | TRANSFUSION MEDICINE | | | | + + + + + ANTIBODY SCREEN (10/09/2017 5:01 PM PDT) + + + + + + | Component | Value | Ref Range | Performed | Pathologist | | | | | At | Signature | + + + + + + | Antibody | Positive | | [facility] | | | Screen | | | LABORATORY | | | | | | SERVICES, | | | | | | TRANSFUSION | | | | | | MEDICINE | | + + + + + + + + | Specimen | + + | Blood - Blood | | (substance) | + + + + + + + | Performing | Address | City/State/Zipcode | Phone Number | | Organization | | | | + + + + + | [facility] | [address] | [place] [address] | | | SERVICES, | [address] | | | | TRANSFUSION MEDICINE | | | | + + + + + ABO & RH TYPE (10/09/2017 5:01 PM PDT) + + + + + + | Component | Value | Ref Range | Performed | Pathologist | | | | | At | Signature | + + + + + + | ABO Group | O | | [facility] | | | | | | LABORATORY | | | | | | SERVICES, | | | | | | TRANSFUSION | | | | | | MEDICINE | | + + + + + + | Rh Type | Positive | | [facility] | | | | | | LABORATORY | | | | | | SERVICES, | | | | | | TRANSFUSION | | | | | | MEDICINE | | + + + + + + + + | Specimen | + + | Blood - Blood | | (substance) | + + + + + + + | Performing | Address | City/State/Zipcode | Phone Number | | Organization | | | | + + + + + | [facility] | [address] | [place] [address] | | | SERVICES, | [address] | | | | TRANSFUSION MEDICINE | | | | + + + + + COAGULOPATHY PANEL (INR,APTT,FIBRINOGEN) (10/09/2017 5:01 PM PDT) + + + + + + | Component | Value | Ref Range | Performed | Pathologist | | | | | At | Signature | + + + + + + | INR | 1.03 | 0.90 - 1.20 INR | [facility] | | | | | | LABORATORY | | | | | | SERVICES, | | | | | | CORE | | + + + + + + | APTT | 30.9 | 26.0 - 36.0 | [facility] | | | | | seconds | LABORATORY | | | | | | SERVICES, | | | | | | CORE | | + + + + + + | FIBRINOGEN | 371Comment: New | 150 - 450 mg/dL | [facility] | | | LEVEL | Reference Ranges as of | | LABORATORY | | | | 09/02/2017. | | SERVICES, | | | | | | CORE | | + + + + + + + + | Specimen | + + | Blood - Blood | | (substance) | + + + + + | Narrative | Performed At | + + + | INR Therapeutic ranges for full anticoagulation: INR for | [facility] | | Venous Thromboembolism (2.0 - 3.0) INR INR for | LABORATORY | | most patients with mech. valves (2.5 - 3.5) INR APTT | SERVICES, CORE | | Therapeutic Range: (75 - 120) sec | | | Heparin levels of 0.35 - 0.7 U/mL | | + + + + + + + + | Performing | Address | City/State/Zipcode | Phone Number | | Organization | | | | + + + + + | [facility] | [address] | [place] [address] | | | SERVICES, CORE | [address] | | | + + + + + 12 LEAD ECG (10/09/2017 10:03 AM PDT) + + + + + + | Component | Value | Ref Range | Performed | Pathologist | | | | | At | Signature | + + + + + + | VENTRICULAR | 61 | bpm | [facility] | | | RATE | | | OF | | | | | | CARDIOLOGY | | + + + + + + | ATRIAL RATE | 60 | ms | [facility] | | | | | | OF | | | | | | CARDIOLOGY | | + + + + + + | P-R | 138 | ms | [facility] | | | INTERVAL | | | OF | | | | | | CARDIOLOGY | | + + + + + + | P AXIS | 54 | deg | [facility] | | | | | | OF | | | | | | CARDIOLOGY | | + + + + + + | QRS | 123 | ms | [facility] | | | DURATION | | | OF | | | | | | CARDIOLOGY | | + + + + + + | QT | 454 | ms | [facility] | | | | | | OF | | | | | | CARDIOLOGY | | + + + + + + | QTC-BAZETT | 457 | ms | [facility] | | | | | | OF | | | | | | CARDIOLOGY | | + + + + + + | R AXIS | 82 | deg | [facility] | | | | | | OF | | | | | | CARDIOLOGY | | + + + + + + | T AXIS | 38 | deg | [facility] | | | | | | OF | | | | | | CARDIOLOGY | | + + + + + + | ECG | Sinus rhythm | | [facility] | | | IMPRESSION | | | OF | | | | | | CARDIOLOGY | | + + + + + + | ECG | Right bundle branch | | [facility] | | | IMPRESSION | block | | OF | | | | | | CARDIOLOGY | | + + + + + + | ECG | Borderline ST elevation, | | [facility] | | | IMPRESSION | anterolateral leads- | | OF | | | | ABNORMAL ECG - | | CARDIOLOGY | | + + + + + + | ECG | Electronically signed | | [facility] | | | IMPRESSION | by: GABRIELA VANN | | OF | | | | 10-09-2017 10:52:00 | | CARDIOLOGY | | + + + + + + + + | Specimen | + + | | + + + + + | Narrative | Performed At | + + + | | | + + + + + + + + | Performing | Address | City/State/Zipcode | Phone Number | | Organization | | | | + + + + + | [facility] | [address] | [place], [place] | | | CARDIOLOGY | [address] | [address] | | + + + + + VASC LAB VENOUS DUPLEX LOWER EXTREMITY BILAT COMP (10/08/2017 10:05 AM PDT) + + | Specimen | + + | | + + + + + | Narrative | Performed At | + + + | Bilateral: The duplex scanner was used to examine the deep and | [facility] | | superficial veins of the right and left lower extremities. The | RADIOLOGY VASC | | veins are patent bilaterally with normal flow and responses to | [facility] | | augmentation and compression maneuvers and no thrombus is noted. | | | Conclusions: A normal venous examination of the bilateral lower | | | extremities. No venous thrombosis was detected. I have | | | personally reviewed the images and, if necessary, edited the report. | | | I agree with the report as now presented. | | + + + + + | Procedure Note | + + | Service Account, Hickies Res In Interface - 10/08/2017 10:47 AM PDT Bilateral: The | | duplex scanner was used to examine the deep and superficial veins of the right and left | | lower extremities. The veins are patent bilaterally with normal flow and responses to | | augmentation and compression maneuvers and no thrombus is noted.Conclusions: A normal | | venous examination of the bilateral lower extremities. No venous thrombosis was | | detected.I have personally reviewed the images and, if necessary, edited the report. I | | agree with the report as now presented. | | | | | |I have personally reviewed the images and, if necessary, edited the report. I agree with t he report as now presented. | + + + +---------+ + + | Performing | Address | City/State/Zipcode | Phone Number | | Organization | | | | + +---------+ + + | [facility] | | | | | VASC US | | | | + +---------+ + + CAPILLARY BLOOD GLUCOSE (NO CHG), POC (10/08/2017 6:20 AM PDT) + +---------+ + + + | Component | Value | Ref Range | Performed | Pathologist | | | | | At | Signature | + +---------+ + + + | BLOOD | 102 (H) | 70 - 99 mg/dL | [facility] - | | | GLUCOSE, | | | [facility] | | | POC | | | [facility] | | | | | | OF CARE | | | | | | TESTS | | + +---------+ + + + + + | Specimen | + + | | + + + + + + + | Performing | Address | City/State/Zipcode | Phone Number | | Organization | | | | + + + + + | [facility] | [address] | [place], [place] | | | [facility] | [address] | [address] | | | TESTS | | | | + + + + + CBC (HEMOGRAM) ONLY (10/08/2017 6:00 AM PDT) + + + + + + | Component | Value | Ref Range | Performed | Pathologist | | | | | At | Signature | + + + + + + | WHITE CELL | 7.44 | 3.50 - 10.80 | [facility] | | | COUNT | | K/cu mm | LABORATORY | | | | | | SERVICES, | | | | | | CORE | | + + + + + + | RED CELL | 4.33 (L) | 4.50 - 6.00 | [facility] | | | COUNT | | M/cu mm | LABORATORY | | | | | | SERVICES, | | | | | | CORE | | + + + + + + | HEMOGLOBIN | 12.9 (L) | 13.5 - 17.5 | [facility] | | | | | g/dL | LABORATORY | | | | | | SERVICES, | | | | | | CORE | | + + + + + + | HEMATOCRIT | 39.9 (L) | 41.0 - 53.0 % | [facility] | | | | | | LABORATORY | | | | | | SERVICES, | | | | | | CORE | | + + + + + + | MCV | 92.1 | 80.0 - 100.0 fL | [facility] | | | | | | LABORATORY | | | | | | SERVICES, | | | | | | CORE | | + + + + + + | MCHC | 32.3 | 32.0 - 36.0 | [facility] | | | | | g/dL | LABORATORY | | | | | | SERVICES, | | | | | | CORE | | + + + + + + | RDW SD | 56.8 (H) | 35.1 - 46.3 fL | [facility] | | | | | | LABORATORY | | | | | | SERVICES, | | | | | | CORE | | + + + + + + | PLATELET | 203 | 150 - 400 K/cu | [facility] | | | COUNT | | mm | LABORATORY | | | | | | SERVICES, | | | | | | CORE | | + + + + + + | MPV | 9.3 (L) | 9.7 - 12.3 fL | [facility] | | | | | | LABORATORY | | | | | | SERVICES, | | | | | | CORE | | + + + + + + | NRBC% | 0.0 | 0.0 - 0.3 % | [facility] | | | | | | LABORATORY | | | | | | SERVICES, | | | | | | CORE | | + + + + + + | NRBC# | 0.00 | 0.00 - 0.02 | [facility] | | | | | K/cu mm | LABORATORY | | | | | | SERVICES, | | | | | | CORE | | + + + + + + + + | Specimen | + + | Blood - Blood | | (substance) | + + + + + | Narrative | Performed At | + + + | New reference ranges for MCV, MCHC, PLT, IG% and IG# effective | [facility] | | 09/05/2017 | LABORATORY | | | [facility] | + + + + + + + + | Performing | Address | City/State/Zipcode | Phone Number | | Organization | | | | + + + + + | [facility] | [address] | [place] [address] | | | NATALEE WORTH[address] | [address] | | | + + + + + MAGNESIUM, PLASMA (10/08/2017 6:00 AM PDT) + +-------+ + + + | Component | Value | Ref Range | Performed | Pathologist | | | | | At | Signature | + +-------+ + + + | MAGNESIUM,P | 2.2 | 1.6 - 2.6 mg/dL | [facility] | | | [facility] | | | LABORATORY | | | | | | SERVICES, | | | | | | CORE | | + +-------+ + + + + + | Specimen | + + | Blood - Blood | | (substance) | + + + + + | Narrative | Performed At | + + + | Reference range change effective 12/11/16. | [facility] | | | LABORATORY | | | [facility] [place] | + + + + + + + + | Performing | Address | City/State/Zipcode | Phone Number | | Organization | | | | + + + + + | [facility] | [address] | [place] [address] | | | NATALEE WORTH[address] | [address] | | | + + + + + RENAL FUNCTION SET (NA,K,CL,CO2,BUN,CREAT,GLUC,CA,PHOS,ALB ) (10/08/2017 6:00 AM PDT) + + + + + + | Component | Value | Ref Range | Performed | Pathologist | | | | | At | Signature | + + + + + + | GLUCOSE, | 91 | 70 - 99 mg/dL | [facility] | | | PLASMA | | | LABORATORY | | | (LAB) | | | SERVICES, | | | | | | CORE | | + + + + + + | BUN, PLASMA | 19 | 6 - 20 mg/dL | [facility] | | | (LAB) | | | LABORATORY | | | | | | SERVICES, | | | | | | CORE | | + + + + + + | CREATININE | 0.64 (L) | 0.70 - 1.30 | [facility] | | | PLASMA | | mg/dL | LABORATORY | | | (LAB) | | | SERVICES, | | | | | | CORE | | + + + + + + | EGFR | >60 | >60 mL/min | [facility] | | | - | | | LABORATORY | | | SUDANESE | | | SERVICES, | | | | | | CORE | | + + + + + + | EGFR NON | >60 | >60 mL/min | [facility] | | | -KAYE | | | LABORATORY | | | RICAN | | | SERVICES, | | | | | | CORE | | + + + + + + | SODIUM, | 139 | 136 - 145 | [facility] | | | PLASMA | | mmol/L | LABORATORY | | | (LAB) | | | SERVICES, | | | | | | CORE | | + + + + + + | POTASSIUM, | 4.1 | 3.4 - 5.0 | [facility] | | | PLASMA | | mmol/L | LABORATORY | | | (LAB) | | | SERVICES, | | | | | | CORE | | + + + + + + | CHLORIDE, | 105 | 97 - 108 mmol/L | [facility] | | | PLASMA | | | LABORATORY | | | (LAB) | | | SERVICES, | | | | | | CORE | | + + + + + + | TOTAL CO2, | 27 | 21 - 32 mmol/L | [facility] | | | PLASMA | | | LABORATORY | | | (LAB) | | | SERVICES, | | | | | | CORE | | + + + + + + | CALCIUM, | 9.1 | 8.6 - 10.2 | [facility] | | | PLASMA | | mg/dL | LABORATORY | | | (LAB) | | | SERVICES, | | | | | | CORE | | + + + + + + | CALCIUM(ALB | 9.7 | 8.6 - 10.2 | [facility] | | | CORRECTED) | | mg/dL | LABORATORY | | | | | | SERVICES, | | | | | | CORE | | + + + + + + | ALBUMIN, | 3.3 (L) | 3.5 - 4.7 g/dL | [facility] | | | PLASMA | | | LABORATORY | | | (LAB) | | | SERVICES, | | | | | | CORE | | + + + + + + | PHOSPHORUS, | 3.7 | 2.4 - 4.7 mg/dL | [facility] | | | PLASMA | | | LABORATORY | | | (LAB) | | | SERVICES, | | | | | | CORE | | + + + + + + | POTASSIUM | No Hemo | | [facility] | | | CMNT | | | LABORATORY | | | | | | SERVICES, | | | | | | CORE | | + + + + + + | ANION GAP | 7 | 4 - 11 mmol/L | [facility] | | | | | | LABORATORY | | | | | | SERVICES, | | | | | | CORE | | + + + + + + | ANION | 8 | 4 - 11 mmol/L | [facility] | | | GAP(ALB | | | LABORATORY | | | CORRECTED) | | | SERVICES, | | | | | | CORE | | + + + + + + + + | Specimen | + + | Blood - Blood | | (substance) | + + + + + | Narrative | Performed At | + + + | GFR is estimated using the MDRD equation recommended by the | [facility] | | National Kidney Disease Education Program. Estimated GFR | LABORATORY | | Interpretive Information: <60 mL/min/1.73 sq m | SERVICES, CORE | | Chronic Kidney Disease <15 mL/min/1.73 sq m | | | Kidney Failure Estimated GFR greater that 60 mL/min/1.73 sq m is of | | | limited clinical value. The MDRD equation is not valid in the | | | following situations: - Patients under 18 years of age - Severe | | | malnutrition or obesity - Vegetarian diet - Rapidly changing kidney | | | function - Amputees, paraplegics, or other muscle-wasting diseses | | + + + + + + + + | Performing | Address | City/State/Zipcode | Phone Number | | Organization | | | | + + + + + | [facility] | [address] | [place] [address] | | | SERVICES, CORE | [address] | | | + + + + + CAPILLARY BLOOD GLUCOSE (NO CHG), POC (10/08/2017 12:07 AM PDT) + +---------+ + + + | Component | Value | Ref Range | Performed | Pathologist | | | | | At | Signature | + +---------+ + + + | BLOOD | 125 (H) | 70 - 99 mg/dL | [facility] - | | | GLUCOSE, | | | [place] | | | POC | | | [facility] | | | | | | OF CARE | | | | | | TESTS | | + +---------+ + + + + + | Specimen | + + | | + + + + + + + | Performing | Address | City/State/Zipcode | Phone Number | | Organization | | | | + + + + + | [facility] | [address] | [place], [place] | | | [facility] | [facility] | [address] | | | TESTS | | | | + + + + + CAPILLARY BLOOD GLUCOSE (NO CHG), POC (10/07/2017 10:30 PM PDT) + +---------+ + + + | Component | Value | Ref Range | Performed | Pathologist | | | | | At | Signature | + +---------+ + + + | BLOOD | 173 (H) | 70 - 99 mg/dL | [facility] - | | | GLUCOSE, | | | [place] | | | POC | | | [place] | | | | | | OF CARE | | | | | | TESTS | | + +---------+ + + + + + | Specimen | + + | | + + + + + + + | Performing | Address | City/State/Zipcode | Phone Number | | Organization | | | | + + + + + | [facility] | [address] | [place], [place] | | | [facility] | [facility] | [address] | | | TESTS | | | | + + + + + CAPILLARY BLOOD GLUCOSE (NO CHG), POC (10/07/2017 6:05 PM PDT) + +---------+ + + + | Component | Value | Ref Range | Performed | Pathologist | | | | | At | Signature | + +---------+ + + + | BLOOD | 129 (H) | 70 - 99 mg/dL | [facility] - | | | GLUCOSE, | | | [place] | | | POC | | | [facility] | | | | | | OF CARE | | | | | | TESTS | | + +---------+ + + + + + | Specimen | + + | | + + + + + + + | Performing | Address | City/State/Zipcode | Phone Number | | Organization | | | | + + + + + | [facility] | [address] | [place], [place] | | | [facility] | [address] | [address] | | | TESTS | | | | + + + + + CAPILLARY BLOOD GLUCOSE (NO CHG), POC (10/07/2017 11:43 AM PDT) + +---------+ + + + | Component | Value | Ref Range | Performed | Pathologist | | | | | At | Signature | + +---------+ + + + | BLOOD | 142 (H) | 70 - 99 mg/dL | [facility] | | | GLUCOSE, | | | [place] | | | POC | | | [facility] | | | | | | OF CARE | | | | | | TESTS | | + +---------+ + + + + + | Specimen | + + | | + + + + + + + | Performing | Address | City/State/Zipcode | Phone Number | | Organization | | | | + + + + + | [facility] | [address] | [place], [place] | | | [facility] | [facility] | [address] | | | TESTS | | | | + + + + + CAPILLARY BLOOD GLUCOSE (NO CHG), POC (10/07/2017 6:33 AM PDT) + +---------+ + + + | Component | Value | Ref Range | Performed | Pathologist | | | | | At | Signature | + +---------+ + + + | BLOOD | 117 (H) | 70 - 99 mg/dL | [facility] - | | | GLUCOSE, | | | [facility] | | | POC | | | [place] [place] | | | | | | OF CARE | | | | | | TESTS | | + +---------+ + + + + + | Specimen | + + | | + + + + + + + | Performing | Address | City/State/Zipcode | Phone Number | | Organization | | | | + + + + + | [facility] | [address] | [place], [place] | | | [facility] | [facility] | [address] | | | TESTS | | | | + + + + + CBC (HEMOGRAM) ONLY (10/07/2017 5:05 AM PDT) + + + + + + | Component | Value | Ref Range | Performed | Pathologist | | | | | At | Signature | + + + + + + | WHITE CELL | 8.57 | 3.50 - 10.80 | [facility] | | | COUNT | | K/cu mm | LABORATORY | | | | | | SERVICES, | | | | | | CORE | | + + + + + + | RED CELL | 4.39 (L) | 4.50 - 6.00 | [facility] | | | COUNT | | M/cu mm | LABORATORY | | | | | | SERVICES, | | | | | | CORE | | + + + + + + | HEMOGLOBIN | 13.1 (L) | 13.5 - 17.5 | [facility] | | | | | g/dL | LABORATORY | | | | | | SERVICES, | | | | | | CORE | | + + + + + + | HEMATOCRIT | 40.1 (L) | 41.0 - 53.0 % | [facility] | | | | | | LABORATORY | | | | | | SERVICES, | | | | | | CORE | | + + + + + + | MCV | 91.3 | 80.0 - 100.0 fL | [facility] | | | | | | LABORATORY | | | | | | SERVICES, | | | | | | CORE | | + + + + + + | MCHC | 32.7 | 32.0 - 36.0 | [facility] | | | | | g/dL | LABORATORY | | | | | | SERVICES, | | | | | | CORE | | + + + + + + | RDW SD | 56.6 (H) | 35.1 - 46.3 fL | [facility] | | | | | | LABORATORY | | | | | | SERVICES, | | | | | | CORE | | + + + + + + | PLATELET | 203 | 150 - 400 K/cu | [facility] | | | COUNT | | mm | LABORATORY | | | | | | SERVICES, | | | | | | CORE | | + + + + + + | MPV | 9.5 (L) | 9.7 - 12.3 fL | [facility] | | | | | | LABORATORY | | | | | | SERVICES, | | | | | | CORE | | + + + + + + | NRBC% | 0.0 | 0.0 - 0.3 % | [facility] | | | | | | LABORATORY | | | | | | SERVICES, | | | | | | CORE | | + + + + + + | NRBC# | 0.00 | 0.00 - 0.02 | [facility] | | | | | K/cu mm | LABORATORY | | | | | | SERVICES, | | | | | | CORE | | + + + + + + + + | Specimen | + + | Blood - Blood | | (substance) | + + + + + | Narrative | Performed At | + + + | New reference ranges for MCV, MCHC, PLT, IG% and IG# effective | [facility] | | 09/05/2017 | LABORATORY | | | SERVICES, CORE | + + + + + + + + | Performing | Address | City/State/Zipcode | Phone Number | | Organization | | | | + + + + + | [facility] | [address] | [place] [address] | | | SERVICES, CORE | [address] | | | + + + + + MAGNESIUM, PLASMA (10/07/2017 5:05 AM PDT) + +-------+ + + + | Component | Value | Ref Range | Performed | Pathologist | | | | | At | Signature | + +-------+ + + + | MAGNESIUM,P | 2.1 | 1.6 - 2.6 mg/dL | [facility] | | | LASMA | | | LABORATORY | | | | | | SERVICES, | | | | | | CORE | | + +-------+ + + + + + | Specimen | + + | Blood - Blood | | (substance) | + + + + + | Narrative | Performed At | + + + | Reference range change effective 12/11/16. | [facility] | | | LABORATORY | | | SERVICES, CORE | + + + + + + + + | Performing | Address | City/State/Zipcode | Phone Number | | Organization | | | | + + + + + | [facility] | [address] | [place] [address] | | | SERVICES, CORE | [address] | | | + + + + + RENAL FUNCTION SET (NA,K,CL,CO2,BUN,CREAT,GLUC,CA,PHOS,ALB ) (10/07/2017 5:05 AM PDT) + + + + + + | Component | Value | Ref Range | Performed | Pathologist | | | | | At | Signature | + + + + + + | GLUCOSE, | 118 (H) | 70 - 99 mg/dL | [facility] | | | PLASMA | | | LABORATORY | | | (LAB) | | | SERVICES, | | | | | | CORE | | + + + + + + | BUN, PLASMA | 26 (H) | 6 - 20 mg/dL | [facility] | | | (LAB) | | | LABORATORY | | | | | | SERVICES, | | | | | | CORE | | + + + + + + | CREATININE | 0.50 (L) | 0.70 - 1.30 | [facility] | | | PLASMA | | mg/dL | LABORATORY | | | (LAB) | | | SERVICES, | | | | | | CORE | | + + + + + + | EGFR | >60 | >60 mL/min | [facility] | | | - | | | LABORATORY | | | SUDANESE | | | SERVICES, | | | | | | CORE | | + + + + + + | EGFR NON | >60 | >60 mL/min | [facility] | | | -KAYE | | | LABORATORY | | | RICAN | | | SERVICES, | | | | | | CORE | | + + + + + + | SODIUM, | 141 | 136 - 145 | [facility] | | | PLASMA | | mmol/L | LABORATORY | | | (LAB) | | | SERVICES, | | | | | | CORE | | + + + + + + | POTASSIUM, | 3.6 | 3.4 - 5.0 | [facility] | | | PLASMA | | mmol/L | LABORATORY | | | (LAB) | | | SERVICES, | | | | | | CORE | | + + + + + + | CHLORIDE, | 104 | 97 - 108 mmol/L | [facility] | | | PLASMA | | | LABORATORY | | | (LAB) | | | SERVICES, | | | | | | CORE | | + + + + + + | TOTAL CO2, | 31 | 21 - 32 mmol/L | [facility] | | | PLASMA | | | LABORATORY | | | (LAB) | | | SERVICES, | | | | | | CORE | | + + + + + + | CALCIUM, | 9.1 | 8.6 - 10.2 | [facility] | | | PLASMA | | mg/dL | LABORATORY | | | (LAB) | | | SERVICES, | | | | | | CORE | | + + + + + + | CALCIUM(ALB | 9.6 | 8.6 - 10.2 | [facility] | | | CORRECTED) | | mg/dL | LABORATORY | | | | | | SERVICES, | | | | | | CORE | | + + + + + + | ALBUMIN, | 3.4 (L) | 3.5 - 4.7 g/dL | [facility] | | | PLASMA | | | LABORATORY | | | (LAB) | | | SERVICES, | | | | | | CORE | | + + + + + + | PHOSPHORUS, | 3.7 | 2.4 - 4.7 mg/dL | [facility] | | | PLASMA | | | LABORATORY | | | (LAB) | | | SERVICES, | | | | | | CORE | | + + + + + + | POTASSIUM | No Hemo | | [facility] | | | CMNT | | | LABORATORY | | | | | | SERVICES, | | | | | | CORE | | + + + + + + | ANION GAP | 6 | 4 - 11 mmol/L | [facility] | | | | | | LABORATORY | | | | | | SERVICES, | | | | | | CORE | | + + + + + + | ANION | 7 | 4 - 11 mmol/L | [facility] | | | GAP(ALB | | | LABORATORY | | | CORRECTED) | | | SERVICES, | | | | | | CORE | | + + + + + + + + | Specimen | + + | Blood - Blood | | (substance) | + + + + + | Narrative | Performed At | + + + | GFR is estimated using the MDRD equation recommended by the | [facility] | | National Kidney Disease Education Program. Estimated GFR | LABORATORY | | Interpretive Information: <60 mL/min/1.73 sq m | SERVICES, CORE | | Chronic Kidney Disease <15 mL/min/1.73 sq m | | | Kidney Failure Estimated GFR greater that 60 mL/min/1.73 sq m is of | | | limited clinical value. The MDRD equation is not valid in the | | | following situations: - Patients under 18 years of age - Severe | | | malnutrition or obesity - Vegetarian diet - Rapidly changing kidney | | | function - Amputees, paraplegics, or other muscle-wasting diseses | | + + + + + + + + | Performing | Address | City/State/Zipcode | Phone Number | | Organization | | | | + + + + + | [facility] | [address] | [place] [address] | | | SERVICES, [place] | [address] | | | + + + + + CAPILLARY BLOOD GLUCOSE (NO CHG), POC (10/06/2017 11:41 PM PDT) + +-------+ + + + | Component | Value | Ref Range | Performed | Pathologist | | | | | At | Signature | + +-------+ + + + | BLOOD | 99 | 70 - 99 mg/dL | [facility] - | | | GLUCOSE, | | | [place] | | | POC | | | [facility] | | | | | | OF CARE | | | | | | TESTS | | + +-------+ + + + + + | Specimen | + + | | + + + + + + + | Performing | Address | City/State/Zipcode | Phone Number | | Organization | | | | + + + + + | [facility] | [address] | [place], [place] | | | [facility] [place] | [facility] | [address] | | | TESTS | | | | + + + + + CAPILLARY BLOOD GLUCOSE (NO CHG), POC (10/06/2017 6:03 PM PDT) + +---------+ + + + | Component | Value | Ref Range | Performed | Pathologist | | | | | At | Signature | + +---------+ + + + | BLOOD | 107 (H) | 70 - 99 mg/dL | [facility] - | | | GLUCOSE, | | | [facility] | | | POC | | | [facility] | | | | | | OF CARE | | | | | | TESTS | | + +---------+ + + + + + | Specimen | + + | | + + + + + + + | Performing | Address | City/State/Zipcode | Phone Number | | Organization | | | | + + + + + | [facility] | [address] | [place], [place] | | | [facility] | [address] | [address] | | | TESTS | | | | + + + + + 12 LEAD ECG (10/06/2017 1:34 PM PDT) + + + + + + | Component | Value | Ref Range | Performed | Pathologist | | | | | At | Signature | + + + + + + | VENTRICULAR | 55 | bpm | [facility] | | | RATE | | | OF | | | | | | CARDIOLOGY | | + + + + + + | ATRIAL RATE | 56 | ms | [facility] | | | | | | OF | | | | | | CARDIOLOGY | | + + + + + + | P-R | 139 | ms | [facility] | | | INTERVAL | | | OF | | | | | | CARDIOLOGY | | + + + + + + | P AXIS | 79 | deg | [facility] | | | | | | OF | | | | | | CARDIOLOGY | | + + + + + + | QRS | 124 | ms | [facility] | | | DURATION | | | OF | | | | | | CARDIOLOGY | | + + + + + + | QT | 445 | ms | [facility] | | | | | | OF | | | | | | CARDIOLOGY | | + + + + + + | ANA LILIA-HALIMA | 427 | ms | [facility] | | | | | | OF | | | | | | CARDIOLOGY | | + + + + + + | R AXIS | 81 | deg | [facility] | | | | | | OF | | | | | | CARDIOLOGY | | + + + + + + | T AXIS | 53 | deg | [facility] | | | | | | OF | | | | | | CARDIOLOGY | | + + + + + + | ECG | Sinus bradycardia | | [facility] | | | IMPRESSION | | | OF | | | | | | CARDIOLOGY | | + + + + + + | ECG | Right bundle branch | | [facility] | | | IMPRESSION | block- ABNORMAL ECG - | | OF | | | | | | CARDIOLOGY | | + + + + + + | ECG | Electronically signed | | [facility] | | | IMPRESSION | by: AJAY DE LOS SANTOS | | OF | | | | 10-06-2017 19:54:42 | | CARDIOLOGY | | + + + + + + + + | Specimen | + + | | + + + + + | Narrative | Performed At | + + + | | | + + + + + + + + | Performing | Address | City/State/Zipcode | Phone Number | | Organization | | | | + + + + + | [facility] | [address] | [place], [place] | | | CARDIOLOGY | [address] | [address] | | + + + + + CAPILLARY BLOOD GLUCOSE (NO CHG), POC (10/06/2017 12:03 PM PDT) + +-------+ + + + | Component | Value | Ref Range | Performed | Pathologist | | | | | At | Signature | + +-------+ + + + | BLOOD | 87 | 70 - 99 mg/dL | [facility] - | | | GLUCOSE, | | | [facility] | | | POC | | | [place] [place] | | | | | | OF CARE | | | | | | TESTS | | + +-------+ + + + + + | Specimen | + + | | + + + + + + + | Performing | Address | City/State/Zipcode | Phone Number | | Organization | | | | + + + + + | [facility] | [address] | [place], [place] | | | [place] [facility] | [address] | [address] | | | TESTS | | | | + + + + + CBC (HEMOGRAM) ONLY (10/06/2017 7:25 AM PDT) + + + + + + | Component | Value | Ref Range | Performed | Pathologist | | | | | At | Signature | + + + + + + | WHITE CELL | 8.53 | 3.50 - 10.80 | [facility] | | | COUNT | | K/cu mm | LABORATORY | | | | | | SERVICES, | | | | | | CORE | | + + + + + + | RED CELL | 4.22 (L) | 4.50 - 6.00 | [facility] | | | COUNT | | M/cu mm | LABORATORY | | | | | | SERVICES, | | | | | | CORE | | + + + + + + | HEMOGLOBIN | 12.5 (L) | 13.5 - 17.5 | [facility] | | | | | g/dL | LABORATORY | | | | | | SERVICES, | | | | | | CORE | | + + + + + + | HEMATOCRIT | 39.2 (L) | 41.0 - 53.0 % | [facility] | | | | | | LABORATORY | | | | | | SERVICES, | | | | | | CORE | | + + + + + + | MCV | 92.9 | 80.0 - 100.0 fL | [facility] | | | | | | LABORATORY | | | | | | SERVICES, | | | | | | CORE | | + + + + + + | MCHC | 31.9 (L) | 32.0 - 36.0 | [facility] | | | | | g/dL | LABORATORY | | | | | | SERVICES, | | | | | | CORE | | + + + + + + | RDW SD | 58.0 (H) | 35.1 - 46.3 fL | [facility] | | | | | | LABORATORY | | | | | | SERVICES, | | | | | | CORE | | + + + + + + | PLATELET | 214 | 150 - 400 K/cu | [facility] | | | COUNT | | mm | LABORATORY | | | | | | SERVICES, | | | | | | CORE | | + + + + + + | MPV | 9.9 | 9.7 - 12.3 fL | [facility] | | | | | | LABORATORY | | | | | | SERVICES, | | | | | | CORE | | + + + + + + | NRBC% | 0.0 | 0.0 - 0.3 % | [facility] | | | | | | LABORATORY | | | | | | SERVICES, | | | | | | CORE | | + + + + + + | NRBC# | 0.00 | 0.00 - 0.02 | [facility] | | | | | K/cu mm | LABORATORY | | | | | | SERVICES, | | | | | | CORE | | + + + + + + + + | Specimen | + + | Blood - Blood | | (substance) | + + + + + | Narrative | Performed At | + + + | New reference ranges for MCV, MCHC, PLT, IG% and IG# effective | [facility] | | 09/05/2017 | LABORATORY | | | SERVICES, CORE | + + + + + + + + | Performing | Address | City/State/Zipcode | Phone Number | | Organization | | | | + + + + + | [facility] | [address] | [place] [address] | | | SERVICES, CORE | [address] | | | + + + + + MAGNESIUM, PLASMA (10/06/2017 7:25 AM PDT) + +-------+ + + + | Component | Value | Ref Range | Performed | Pathologist | | | | | At | Signature | + +-------+ + + + | MAGNESIUM,P | 2.0 | 1.6 - 2.6 mg/dL | [facility] | | | LASMA | | | LABORATORY | | | | | | SERVICES, | | | | | | CORE | | + +-------+ + + + + + | Specimen | + + | Blood - Blood | | (substance) | + + + + + | Narrative | Performed At | + + + | Reference range change effective 12/11/16. | [facility] | | | LABORATORY | | | SERVICES, CORE | + + + + + + + + | Performing | Address | City/State/Zipcode | Phone Number | | Organization | | | | + + + + + | [facility] | [address] | [place] [address] | | | SERVICES, CORE | [address] | | | + + + + + RENAL FUNCTION SET (NA,K,CL,CO2,BUN,CREAT,GLUC,CA,PHOS,ALB ) (10/06/2017 7:25 AM PDT) + + + + + + | Component | Value | Ref Range | Performed | Pathologist | | | | | At | Signature | + + + + + + | GLUCOSE, | 110 (H) | 70 - 99 mg/dL | [facility] | | | PLASMA | | | LABORATORY | | | (LAB) | | | SERVICES, | | | | | | CORE | | + + + + + + | BUN, PLASMA | 22 (H) | 6 - 20 mg/dL | [facility] | | | (LAB) | | | LABORATORY | | | | | | SERVICES, | | | | | | CORE | | + + + + + + | CREATININE | 0.53 (L) | 0.70 - 1.30 | [facility] | | | PLASMA | | mg/dL | LABORATORY | | | (LAB) | | | SERVICES, | | | | | | CORE | | + + + + + + | EGFR | >60 | >60 mL/min | [facility] | | | - | | | LABORATORY | | | SUDANESE | | | SERVICES, | | | | | | CORE | | + + + + + + | EGFR NON | >60 | >60 mL/min | [facility] | | | -KAYE | | | LABORATORY | | | RICAN | | | SERVICES, | | | | | | CORE | | + + + + + + | SODIUM, | 142 | 136 - 145 | [facility] | | | PLASMA | | mmol/L | LABORATORY | | | (LAB) | | | SERVICES, | | | | | | CORE | | + + + + + + | POTASSIUM, | 3.9 | 3.4 - 5.0 | [facility] | | | PLASMA | | mmol/L | LABORATORY | | | (LAB) | | | SERVICES, | | | | | | CORE | | + + + + + + | CHLORIDE, | 105 | 97 - 108 mmol/L | [facility] | | | PLASMA | | | LABORATORY | | | (LAB) | | | SERVICES, | | | | | | CORE | | + + + + + + | TOTAL CO2, | 30 | 21 - 32 mmol/L | [facility] | | | PLASMA | | | LABORATORY | | | (LAB) | | | SERVICES, | | | | | | CORE | | + + + + + + | CALCIUM, | 8.6 | 8.6 - 10.2 | [facility] | | | PLASMA | | mg/dL | LABORATORY | | | (LAB) | | | SERVICES, | | | | | | CORE | | + + + + + + | CALCIUM(ALB | 9.3 | 8.6 - 10.2 | [facility] | | | CORRECTED) | | mg/dL | LABORATORY | | | | | | SERVICES, | | | | | | CORE | | + + + + + + | ALBUMIN, | 3.1 (L) | 3.5 - 4.7 g/dL | [facility] | | | PLASMA | | | LABORATORY | | | (LAB) | | | SERVICES, | | | | | | CORE | | + + + + + + | PHOSPHORUS, | 4.6 | 2.4 - 4.7 mg/dL | [facility] | | | PLASMA | | | LABORATORY | | | (LAB) | | | SERVICES, | | | | | | CORE | | + + + + + + | POTASSIUM | No Hemo | | [facility] | | | CMNT | | | LABORATORY | | | | | | SERVICES, | | | | | | CORE | | + + + + + + | ANION GAP | 7 | 4 - 11 mmol/L | [facility] | | | | | | LABORATORY | | | | | | SERVICES, | | | | | | CORE | | + + + + + + | ANION | 9 | 4 - 11 mmol/L | [facility] | | | GAP(ALB | | | LABORATORY | | | CORRECTED) | | | SERVICES, | | | | | | CORE | | + + + + + + + + | Specimen | + + | Blood - Blood | | (substance) | + + + + + | Narrative | Performed At | + + + | GFR is estimated using the MDRD equation recommended by the | [facility] | | National Kidney Disease Education Program. Estimated GFR | LABORATORY | | Interpretive Information: <60 mL/min/1.73 sq m | SERVICES, CORE | | Chronic Kidney Disease <15 mL/min/1.73 sq m | | | Kidney Failure Estimated GFR greater that 60 mL/min/1.73 sq m is of | | | limited clinical value. The MDRD equation is not valid in the | | | following situations: - Patients under 18 years of age - Severe | | | malnutrition or obesity - Vegetarian diet - Rapidly changing kidney | | | function - Amputees, paraplegics, or other muscle-wasting diseses | | + + + + + + + + | Performing | Address | City/State/Zipcode | Phone Number | | Organization | | | | + + + + + | [facility] | [phone] | [place] [address] | | | SERVICES, CORE | [address] | | | + + + + + CAPILLARY BLOOD GLUCOSE (NO CHG), POC (10/06/2017 6:07 AM PDT) + +---------+ + + + | Component | Value | Ref Range | Performed | Pathologist | | | | | At | Signature | + +---------+ + + + | BLOOD | 127 (H) | 70 - 99 mg/dL | [facility] - | | | GLUCOSE, | | | [place] | | | POC | | | [facility] | | | | | | OF CARE | | | | | | TESTS | | + +---------+ + + + + + | Specimen | + + | | + + + + + + + | Performing | Address | City/State/Zipcode | Phone Number | | Organization | | | | + + + + + | [facility] | [phone] | [place], [place] | | | [facility] | [facility] | [phone] | | | TESTS | | | | + + + + + CAPILLARY BLOOD GLUCOSE (NO CHG), POC (10/06/2017 1:04 AM PDT) + +-------+ + + + | Component | Value | Ref Range | Performed | Pathologist | | | | | At | Signature | + +-------+ + + + | BLOOD | 91 | 70 - 99 mg/dL | [facility] - | | | GLUCOSE, | | | [place] | | | POC | | | [facility] | | | | | | OF CARE | | | | | | TESTS | | + +-------+ + + + + + | Specimen | + + | | + + + + + + + | Performing | Address | City/State/Zipcode | Phone Number | | Organization | | | | + + + + + | [facility] | [phone] | [place], [place] | | | [facility] | [address] | [phone] | | | TESTS | | | | + + + + + CAPILLARY BLOOD GLUCOSE (NO CHG), POC (10/05/2017 6:43 PM PDT) + +---------+ + + + | Component | Value | Ref Range | Performed | Pathologist | | | | | At | Signature | + +---------+ + + + | BLOOD | 118 (H) | 70 - 99 mg/dL | [facility] - | | | GLUCOSE, | | | [place] | | | POC | | | [facility] | | | | | | OF CARE | | | | | | TESTS | | + +---------+ + + + + + | Specimen | + + | | + + + + + + + | Performing | Address | City/State/Zipcode | Phone Number | | Organization | | | | + + + + + | [facility] | [phone] | [place], [place] | | | [facility] | [facility] | [phone] | | | TESTS | | | | + + + + + CAPILLARY BLOOD GLUCOSE (NO CHG), POC (10/05/2017 12:24 PM PDT) + +---------+ + + + | Component | Value | Ref Range | Performed | Pathologist | | | | | At | Signature | + +---------+ + + + | BLOOD | 141 (H) | 70 - 99 mg/dL | [facility] - | | | GLUCOSE, | | | [facility] | | | POC | | | [facility] | | | | | | OF CARE | | | | | | TESTS | | + +---------+ + + + + + | Specimen | + + | | + + + + + + + | Performing | Address | City/State/Zipcode | Phone Number | | Organization | | | | + + + + + | [facility] | [address] | [place], [place] | | | [facility] | [address] | [address] | | | TESTS | | | | + + + + + 12 LEAD ECG (10/05/2017 8:50 AM PDT) + + + + + + | Component | Value | Ref Range | Performed | Pathologist | | | | | At | Signature | + + + + + + | VENTRICULAR | 64 | bpm | [facility] | | | RATE | | | OF | | | | | | CARDIOLOGY | | + + + + + + | ATRIAL RATE | 64 | ms | [facility] | | | | | | OF | | | | | | CARDIOLOGY | | + + + + + + | P-R | 138 | ms | [facility] | | | INTERVAL | | | OF | | | | | | CARDIOLOGY | | + + + + + + | P AXIS | 65 | deg | [facility] | | | | | | OF | | | | | | CARDIOLOGY | | + + + + + + | QRS | 127 | ms | [facility] | | | DURATION | | | OF | | | | | | CARDIOLOGY | | + + + + + + | QT | 428 | ms | [facility] | | | | | | OF | | | | | | CARDIOLOGY | | + + + + + + | QTC-BABRAYDONTT | 441 | ms | [facility] | | | | | | OF | | | | | | CARDIOLOGY | | + + + + + + | R AXIS | 93 | deg | [facility] | | | | | | OF | | | | | | CARDIOLOGY | | + + + + + + | T AXIS | 34 | deg | [facility] | | | | | | OF | | | | | | CARDIOLOGY | | + + + + + + | ECG | Sinus rhythm | | [facility] | | | IMPRESSION | | | OF | | | | | | CARDIOLOGY | | + + + + + + | ECG | Right bundle branch | | [facility] | | | IMPRESSION | block | | OF | | | | | | CARDIOLOGY | | + + + + + + | ECG | Borderline ST elevation, | | [facility] | | | IMPRESSION | lateral leads- ABNORMAL | | OF | | | | ECG - | | CARDIOLOGY | | + + + + + + | ECG | Electronically signed | | [facility] | | | IMPRESSION | by: GABRIELA VANN | | OF | | | | 10-05-2017 09:17:53 | | CARDIOLOGY | | + + + + + + + + | Specimen | + + | | + + + + + | Narrative | Performed At | + + + | | | + + + + + + + + | Performing | Address | City/State/Zipcode | Phone Number | | Organization | | | | + + + + + | [facility] | [address] | [place], [place] | | | CARDIOLOGY | [address] | [address] | | + + + + + CBC (HEMOGRAM) ONLY (10/05/2017 8:38 AM PDT) + + + + + + | Component | Value | Ref Range | Performed | Pathologist | | | | | At | Signature | + + + + + + | WHITE CELL | 10.68 | 3.50 - 10.80 | [facility] | | | COUNT | | K/cu mm | LABORATORY | | | | | | SERVICES, | | | | | | CORE | | + + + + + + | RED CELL | 4.36 (L) | 4.50 - 6.00 | [facility] | | | COUNT | | M/cu mm | LABORATORY | | | | | | SERVICES, | | | | | | CORE | | + + + + + + | HEMOGLOBIN | 12.8 (L) | 13.5 - 17.5 | [facility] | | | | | g/dL | LABORATORY | | | | | | SERVICES, | | | | | | CORE | | + + + + + + | HEMATOCRIT | 40.7 (L) | 41.0 - 53.0 % | [facility] | | | | | | LABORATORY | | | | | | SERVICES, | | | | | | CORE | | + + + + + + | MCV | 93.3 | 80.0 - 100.0 fL | [facility] | | | | | | LABORATORY | | | | | | SERVICES, | | | | | | CORE | | + + + + + + | MCHC | 31.4 (L) | 32.0 - 36.0 | [facility] | | | | | g/dL | LABORATORY | | | | | | SERVICES, | | | | | | CORE | | + + + + + + | RDW SD | 59.8 (H) | 35.1 - 46.3 fL | [facility] | | | | | | LABORATORY | | | | | | SERVICES, | | | | | | CORE | | + + + + + + | PLATELET | 205 | 150 - 400 K/cu | [facility] | | | COUNT | | mm | LABORATORY | | | | | | SERVICES, | | | | | | CORE | | + + + + + + | MPV | 9.4 (L) | 9.7 - 12.3 fL | [facility] | | | | | | LABORATORY | | | | | | SERVICES, | | | | | | CORE | | + + + + + + | NRBC% | 0.0 | 0.0 - 0.3 % | [facility] | | | | | | LABORATORY | | | | | | SERVICES, | | | | | | CORE | | + + + + + + | NRBC# | 0.00 | 0.00 - 0.02 | [facility] | | | | | K/cu mm | LABORATORY | | | | | | SERVICES, | | | | | | CORE | | + + + + + + + + | Specimen | + + | Blood - Blood | | (substance) | + + + + + | Narrative | Performed At | + + + | New reference ranges for MCV, MCHC, PLT, IG% and IG# effective | [facility] | | 09/05/2017 | LABORATORY | | | SERVICES, CORE | + + + + + + + + | Performing | Address | City/State/Zipcode | Phone Number | | Organization | | | | + + + + + | [facility] | [address] | [place] [address] | | | SERVICES, CORE | [address] | | | + + + + + MAGNESIUM, PLASMA (10/05/2017 8:38 AM PDT) + +-------+ + + + | Component | Value | Ref Range | Performed | Pathologist | | | | | At | Signature | + +-------+ + + + | MAGNESIUM,P | 1.9 | 1.6 - 2.6 mg/dL | [facility] | | | LASMA | | | LABORATORY | | | | | | ELIN, | | | | | | CORE | | + +-------+ + + + + + | Specimen | + + | Blood - Blood | | (substance) | + + + + + | Narrative | Performed At | + + + | Reference range change effective 12/11/16. | [facility] | | | LABORATORY | | | SERVICES, CORE | + + + + + + + + | Performing | Address | City/State/Zipcode | Phone Number | | Organization | | | | + + + + + | [facility] | [address] | [place] [address] | | | SERVICES, CORE | [address] | | | + + + + + RENAL FUNCTION SET (NA,K,CL,CO2,BUN,CREAT,GLUC,CA,PHOS,ALB ) (10/05/2017 8:38 AM PDT) + + + + + + | Component | Value | Ref Range | Performed | Pathologist | | | | | At | Signature | + + + + + + | GLUCOSE, | 165 (H) | 70 - 99 mg/dL | [facility] | | | PLASMA | | | LABORATORY | | | (LAB) | | | SERVICES, | | | | | | CORE | | + + + + + + | BUN, PLASMA | 18 | 6 - 20 mg/dL | [facility] | | | (LAB) | | | LABORATORY | | | | | | SERVICES, | | | | | | CORE | | + + + + + + | CREATININE | 0.54 (L) | 0.70 - 1.30 | [facility] | | | PLASMA | | mg/dL | LABORATORY | | | (LAB) | | | SERVICES, | | | | | | CORE | | + + + + + + | EGFR | >60 | >60 mL/min | [facility] | | | - | | | LABORATORY | | | SUDANESE | | | SERVICES, | | | | | | CORE | | + + + + + + | EGFR NON | >60 | >60 mL/min | [facility] | | | -KAYE | | | LABORATORY | | | RICAN | | | SERVICES, | | | | | | CORE | | + + + + + + | SODIUM, | 140 | 136 - 145 | [facility] | | | PLASMA | | mmol/L | LABORATORY | | | (LAB) | | | SERVICES, | | | | | | CORE | | + + + + + + | POTASSIUM, | 3.7 | 3.4 - 5.0 | [facility] | | | PLASMA | | mmol/L | LABORATORY | | | (LAB) | | | SERVICES, | | | | | | CORE | | + + + + + + | CHLORIDE, | 103 | 97 - 108 mmol/L | [facility] | | | PLASMA | | | LABORATORY | | | (LAB) | | | SERVICES, | | | | | | CORE | | + + + + + + | TOTAL CO2, | 28 | 21 - 32 mmol/L | [facility] | | | PLASMA | | | LABORATORY | | | (LAB) | | | SERVICES, | | | | | | CORE | | + + + + + + | CALCIUM, | 8.9 | 8.6 - 10.2 | [facility] | | | PLASMA | | mg/dL | LABORATORY | | | (LAB) | | | SERVICES, | | | | | | CORE | | + + + + + + | CALCIUM(ALB | 9.5 | 8.6 - 10.2 | [facility] | | | CORRECTED) | | mg/dL | LABORATORY | | | | | | SERVICES, | | | | | | CORE | | + + + + + + | ALBUMIN, | 3.3 (L) | 3.5 - 4.7 g/dL | [facility] | | | PLASMA | | | LABORATORY | | | (LAB) | | | SERVICES, | | | | | | CORE | | + + + + + + | PHOSPHORUS, | 3.5 | 2.4 - 4.7 mg/dL | [facility] | | | PLASMA | | | LABORATORY | | | (LAB) | | | SERVICES, | | | | | | CORE | | + + + + + + | POTASSIUM | No Hemo | | [facility] | | | CMNT | | | LABORATORY | | | | | | SERVICES, | | | | | | CORE | | + + + + + + | ANION GAP | 9 | 4 - 11 mmol/L | [facility] | | | | | | LABORATORY | | | | | | SERVICES, | | | | | | CORE | | + + + + + + | ANION | 10 | 4 - 11 mmol/L | [facility] | | | GAP(ALB | | | LABORATORY | | | CORRECTED) | | | SERVICES, | | | | | | CORE | | + + + + + + + + | Specimen | + + | Blood - Blood | | (substance) | + + + + + | Narrative | Performed At | + + + | GFR is estimated using the MDRD equation recommended by the | [facility] | | National Kidney Disease Education Program. Estimated GFR | LABORATORY | | Interpretive Information: <60 mL/min/1.73 sq m | [facility], CORE | | Chronic Kidney Disease <15 mL/min/1.73 sq m | | | Kidney Failure Estimated GFR greater that 60 mL/min/1.73 sq m is of | | | limited clinical value. The MDRD equation is not valid in the | | | following situations: - Patients under 18 years of age - Severe | | | malnutrition or obesity - Vegetarian diet - Rapidly changing kidney | | | function - Amputees, paraplegics, or other muscle-wasting diseses | | + + + + + + + + | Performing | Address | City/State/Zipcode | Phone Number | | Organization | | | | + + + + + | [facility] | [address] | [place] [address] | | | [facility] | [address] | | | + + + + + CAPILLARY BLOOD GLUCOSE (NO CHG), POC (10/05/2017 6:28 AM PDT) + +---------+ + + + | Component | Value | Ref Range | Performed | Pathologist | | | | | At | Signature | + +---------+ + + + | BLOOD | 129 (H) | 70 - 99 mg/dL | [facility] | | | GLUCOSE, | | | [facility] | | | POC | | | [facility] | | | | | | OF CARE | | | | | | TESTS | | + +---------+ + + + + + | Specimen | + + | | + + + + + + + | Performing | Address | City/State/Zipcode | Phone Number | | Organization | | | | + + + + + | [facility] | [address] | [place], [place] | | | [facility] | [facility] | [address] | | | TESTS | | | | + + + + + CAPILLARY BLOOD GLUCOSE (NO CHG), POC (10/04/2017 11:48 PM PDT) + +---------+ + + + | Component | Value | Ref Range | Performed | Pathologist | | | | | At | Signature | + +---------+ + + + | BLOOD | 131 (H) | 70 - 99 mg/dL | [facility] | | | GLUCOSE, | | | [facility] | | | POC | | | [facility] | | | | | | OF CARE | | | | | | TESTS | | + +---------+ + + + + + | Specimen | + + | | + + + + + + + | Performing | Address | City/State/Zipcode | Phone Number | | Organization | | | | + + + + + | [facility] | [address] | [place], [place] | | | [facility] | [address] | [address] | | | TESTS | | | | + + + + + CAPILLARY BLOOD GLUCOSE (NO CHG), POC (10/04/2017 5:47 PM PDT) + +---------+ + + + | Component | Value | Ref Range | Performed | Pathologist | | | | | At | Signature | + +---------+ + + + | BLOOD | 123 (H) | 70 - 99 mg/dL | [facility] | | | GLUCOSE, | | | [facility] | | | POC | | | [facility] | | | | | | OF CARE | | | | | | TESTS | | + +---------+ + + + + + | Specimen | + + | | + + + + + + + | Performing | Address | City/State/Zipcode | Phone Number | | Organization | | | | + + + + + | [facility] | [address] | [place], [place] | | | [facility] | [address] | [address] | | | TESTS | | | | + + + + + CAPILLARY BLOOD GLUCOSE (NO CHG), POC (10/04/2017 12:30 PM PDT) + +---------+ + + + | Component | Value | Ref Range | Performed | Pathologist | | | | | At | Signature | + +---------+ + + + | BLOOD | 137 (H) | 70 - 99 mg/dL | [facility] | | | GLUCOSE, | | | [facility] | | | POC | | | [facility] | | | | | | OF CARE | | | | | | TESTS | | + +---------+ + + + + + | Specimen | + + | | + + + + + + + | Performing | Address | City/State/Zipcode | Phone Number | | Organization | | | | + + + + + | [facility] | [address] | [place], [place] | | | [facility] | [address] | [address] | | | TESTS | | | | + + + + + CAPILLARY BLOOD GLUCOSE (NO CHG), POC (10/04/2017 5:55 AM PDT) + +---------+ + + + | Component | Value | Ref Range | Performed | Pathologist | | | | | At | Signature | + +---------+ + + + | BLOOD | 128 (H) | 70 - 99 mg/dL | [facility] | | | GLUCOSE, | | | [facility] | | | POC | | | [facility] | | | | | | OF CARE | | | | | | TESTS | | + +---------+ + + + + + | Specimen | + + | | + + + + + + + | Performing | Address | City/State/Zipcode | Phone Number | | Organization | | | | + + + + + | [facility] | [address] | [place], [place] | | | [facility] | [address] | [address] | | | TESTS | | | | + + + + + CBC (HEMOGRAM) ONLY (10/04/2017 5:28 AM PDT) + + + + + + | Component | Value | Ref Range | Performed | Pathologist | | | | | At | Signature | + + + + + + | WHITE CELL | 7.70 | 3.50 - 10.80 | [facility] | | | COUNT | | K/cu mm | LABORATORY | | | | | | SERVICES, | | | | | | CORE | | + + + + + + | RED CELL | 4.59 | 4.50 - 6.00 | [facility] | | | COUNT | | M/cu mm | LABORATORY | | | | | | SERVICES, | | | | | | CORE | | + + + + + + | HEMOGLOBIN | 13.5 | 13.5 - 17.5 | [facility] | | | | | g/dL | LABORATORY | | | | | | SERVICES, | | | | | | CORE | | + + + + + + | HEMATOCRIT | 42.4 | 41.0 - 53.0 % | [facility] | | | | | | LABORATORY | | | | | | SERVICES, | | | | | | CORE | | + + + + + + | MCV | 92.4 | 80.0 - 100.0 fL | [facility] | | | | | | LABORATORY | | | | | | SERVICES, | | | | | | CORE | | + + + + + + | MCHC | 31.8 (L) | 32.0 - 36.0 | [facility] | | | | | g/dL | LABORATORY | | | | | | SERVICES, | | | | | | CORE | | + + + + + + | RDW SD | 59.7 (H) | 35.1 - 46.3 fL | [facility] | | | | | | LABORATORY | | | | | | SERVICES, | | | | | | CORE | | + + + + + + | PLATELET | 221 | 150 - 400 K/cu | [facility] | | | COUNT | | mm | LABORATORY | | | | | | SERVICES, | | | | | | CORE | | + + + + + + | MPV | 9.7 | 9.7 - 12.3 fL | [facility] | | | | | | LABORATORY | | | | | | SERVICES, | | | | | | CORE | | + + + + + + | NRBC% | 0.0 | 0.0 - 0.3 % | [facility] | | | | | | LABORATORY | | | | | | SERVICES, | | | | | | CORE | | + + + + + + | NRBC# | 0.00 | 0.00 - 0.02 | [facility] | | | | | K/cu mm | LABORATORY | | | | | | SERVICES, | | | | | | CORE | | + + + + + + + + | Specimen | + + | Blood - Blood | | (substance) | + + + + + | Narrative | Performed At | + + + | New reference ranges for MCV, MCHC, PLT, IG% and IG# effective | [facility] | | 09/05/2017 | LABORATORY | | | [facility] [place] | + + + + + + + + | Performing | Address | City/State/Zipcode | Phone Number | | Organization | | | | + + + + + | [facility] | [address] | [place] [address] | | | NATALEE [place] | [address] | | | + + + + + MAGNESIUM, PLASMA (10/04/2017 5:28 AM PDT) + +-------+ + + + | Component | Value | Ref Range | Performed | Pathologist | | | | | At | Signature | + +-------+ + + + | MAGNESIUM,P | 2.0 | 1.6 - 2.6 mg/dL | [facility] | | | LASMA | | | LABORATORY | | | | | | SERVICES, | | | | | | CORE | | + +-------+ + + + + + | Specimen | + + | Blood - Blood | | (substance) | + + + + + | Narrative | Performed At | + + + | Reference range change effective 12/11/16. | [facility] | | | LABORATORY | | | [facility] [address] | + + + + + + + + | Performing | Address | City/State/Zipcode | Phone Number | | Organization | | | | + + + + + | [facility] | [address] | [place] [address] | | | NATALEE [place] | [address] | | | + + + + + RENAL FUNCTION SET (NA,K,CL,CO2,BUN,CREAT,GLUC,CA,PHOS,ALB ) (10/04/2017 5:28 AM PDT) + + + + + + | Component | Value | Ref Range | Performed | Pathologist | | | | | At | Signature | + + + + + + | GLUCOSE, | 124 (H) | 70 - 99 mg/dL | [facility] | | | PLASMA | | | LABORATORY | | | (LAB) | | | SERVICES, | | | | | | CORE | | + + + + + + | BUN, PLASMA | 17 | 6 - 20 mg/dL | [facility] | | | (LAB) | | | LABORATORY | | | | | | SERVICES, | | | | | | CORE | | + + + + + + | CREATININE | 0.56 (L) | 0.70 - 1.30 | [facility] | | | PLASMA | | mg/dL | LABORATORY | | | (LAB) | | | SERVICES, | | | | | | CORE | | + + + + + + | EGFR | >60 | >60 mL/min | [facility] | | | - | | | LABORATORY | | | SUDANESE | | | SERVICES, | | | | | | CORE | | + + + + + + | EGFR NON | >60 | >60 mL/min | [facility] | | | -KAYE | | | LABORATORY | | | RICAN | | | SERVICES, | | | | | | CORE | | + + + + + + | SODIUM, | 139 | 136 - 145 | [facility] | | | PLASMA | | mmol/L | LABORATORY | | | (LAB) | | | SERVICES, | | | | | | CORE | | + + + + + + | POTASSIUM, | 3.7 | 3.4 - 5.0 | [facility] | | | PLASMA | | mmol/L | LABORATORY | | | (LAB) | | | SERVICES, | | | | | | CORE | | + + + + + + | CHLORIDE, | 104 | 97 - 108 mmol/L | [facility] | | | PLASMA | | | LABORATORY | | | (LAB) | | | SERVICES, | | | | | | CORE | | + + + + + + | TOTAL CO2, | 27 | 21 - 32 mmol/L | [facility] | | | PLASMA | | | LABORATORY | | | (LAB) | | | SERVICES, | | | | | | CORE | | + + + + + + | CALCIUM, | 9.0 | 8.6 - 10.2 | [facility] | | | PLASMA | | mg/dL | LABORATORY | | | (LAB) | | | SERVICES, | | | | | | CORE | | + + + + + + | CALCIUM(ALB | 9.5 | 8.6 - 10.2 | [facility] | | | CORRECTED) | | mg/dL | LABORATORY | | | | | | SERVICES, | | | | | | CORE | | + + + + + + | ALBUMIN, | 3.4 (L) | 3.5 - 4.7 g/dL | [facility] | | | PLASMA | | | LABORATORY | | | (LAB) | | | SERVICES, | | | | | | CORE | | + + + + + + | PHOSPHORUS, | 4.1 | 2.4 - 4.7 mg/dL | [facility] | | | PLASMA | | | LABORATORY | | | (LAB) | | | SERVICES, | | | | | | CORE | | + + + + + + | POTASSIUM | No Hemo | | [facility] | | | CMNT | | | LABORATORY | | | | | | SERVICES, | | | | | | CORE | | + + + + + + | ANION GAP | 8 | 4 - 11 mmol/L | [facility] | | | | | | LABORATORY | | | | | | SERVICES, | | | | | | CORE | | + + + + + + | ANION | 9 | 4 - 11 mmol/L | [facility] | | | GAP(ALB | | | LABORATORY | | | CORRECTED) | | | SERVICES, | | | | | | CORE | | + + + + + + + + | Specimen | + + | Blood - Blood | | (substance) | + + + + + | Narrative | Performed At | + + + | GFR is estimated using the MDRD equation recommended by the | [facility] | | National Kidney Disease Education Program. Estimated GFR | LABORATORY | | Interpretive Information: <60 mL/min/1.73 sq m | SERVICES, CORE | | Chronic Kidney Disease <15 mL/min/1.73 sq m | | | Kidney Failure Estimated GFR greater that 60 mL/min/1.73 sq m is of | | | limited clinical value. The MDRD equation is not valid in the | | | following situations: - Patients under 18 years of age - Severe | | | malnutrition or obesity - Vegetarian diet - Rapidly changing kidney | | | function - Amputees, paraplegics, or other muscle-wasting diseses | | + + + + + + + + | Performing | Address | City/State/Zipcode | Phone Number | | Organization | | | | + + + + + | [facility] | [address] | [place] [address] | | | SERVICES, CORE | [address] | | | + + + + + CAPILLARY BLOOD GLUCOSE (NO CHG), POC (10/03/2017 11:55 PM PDT) + +---------+ + + + | Component | Value | Ref Range | Performed | Pathologist | | | | | At | Signature | + +---------+ + + + | BLOOD | 102 (H) | 70 - 99 mg/dL | [facility] | | | GLUCOSE, | | | [facility] | | | POC | | | [facility] | | | | | | OF CARE | | | | | | TESTS | | + +---------+ + + + + + | Specimen | + + | | + + + + + + + | Performing | Address | City/State/Zipcode | Phone Number | | Organization | | | | + + + + + | [facility] | [address] | [place], [place] | | | [facility] | [address] | [address] | | | TESTS | | | | + + + + + CAPILLARY BLOOD GLUCOSE (NO CHG), POC (10/03/2017 5:54 PM PDT) + +---------+ + + + | Component | Value | Ref Range | Performed | Pathologist | | | | | At | Signature | + +---------+ + + + | BLOOD | 111 (H) | 70 - 99 mg/dL | [facility] - | | | GLUCOSE, | | | [facility] | | | POC | | | [facility] | | | | | | OF CARE | | | | | | TESTS | | + +---------+ + + + + + | Specimen | + + | | + + + + + + + | Performing | Address | City/State/Zipcode | Phone Number | | Organization | | | | + + + + + | [facility] | [address] | [place], [place] | | | [facility] OF [facility]ARE | [facility] | [address] | | | TESTS | | | | + + + + + URINE, MICROSCOPIC EXAM (10/03/2017 5:48 PM PDT) + +---------+ + + + | Component | Value | Ref Range | Performed | Pathologist | | | | | At | Signature | + +---------+ + + + | RED CELLS | 6 (H) | 0 - 3 /hpf | [facility] | | | | | | LABORATORY | | | | | | SERVICES, | | | | | | CORE | | + +---------+ + + + | WHITE CELLS | 9 (H) | 0 - 5 /hpf | [facility] | | | | | | LABORATORY | | | | | | SERVICES, | | | | | | CORE | | + +---------+ + + + | BACTERIA | None | None /hpf | [facility] | | | | | | LABORATORY | | | | | | SERVICES, | | | | | | CORE | | + +---------+ + + + | YEAST (LAB) | None | None /hpf | [facility] | | | | | | LABORATORY | | | | | | SERVICES, | | | | | | CORE | | + +---------+ + + + | SQUAMOUS | None | None /hpf | [facility] | | | EPITHELIAL | | | LABORATORY | | | | | | SERVICES, | | | | | | CORE | | + +---------+ + + + | MUCOUS | None | None /hpf | [facility] | | | | | | LABORATORY | | | | | | SERVICES, | | | | | | CORE | | + +---------+ + + + | TRICHOMONAS | None | None /hpf | [facility] | | | | | | LABORATORY | | | | | | SERVICES, | | | | | | CORE | | + +---------+ + + + | NON-SQUAMOU | None | None /hpf | [facility] | | | S EPITH | | | LABORATORY | | | | | | SERVICES, | | | | | | CORE | | + +---------+ + + + | HYALINE | 0 | 0 - 2 /lpf | [facility] | | | CASTS | | | LABORATORY | | | | | | SERVICES, | | | | | | CORE | | + +---------+ + + + | GRANULAR | 0 | 0 - 2 /lpf | [facility] | | | [facility]STS | | | LABORATORY | | | | | | SERVICES, | | | | | | CORE | | + +---------+ + + + | CELLULAR | 0 | <=0 /lpf | [facility] | | | CASTS | | | LABORATORY | | | | | | SERVICES, | | | | | | CORE | | + +---------+ + + + | TRIPLE P04 | None | None /hpf | [facility] | | | CRYST[facility] | | | LABORATORY | | | | | | SERVICES, | | | | | | CORE | | + +---------+ + + + | CALCIUM | None | None /hpf | [facility] | | | OXALATE | | | LABORATORY | | | CECILIA | | | SERVICES, | | | | | | CORE | | + +---------+ + + + | URIC ACID | None | None /hpf | [facility] | | | [facility] | | | LABORATORY | | | | | | SERVICES, | | | | | | CORE | | + +---------+ + + + | AMORPHOUS | Few (A) | None /hpf | [facility] | | | [facility] | | | LABORATORY | | | | | | SERVICES, | | | | | | CORE | | + +---------+ + + + + + | Specimen | + + | Urine - Urine | | specimen collection, | | clean catch | | (procedure) | + + + + + + + | Performing | Address | City/State/Zipcode | Phone Number | | Organization | | | | + + + + + | [facility] | [address] | [place] [address] | | | SERVICES, CORE | [address] | | | + + + + + RPR SERUM (10/03/2017 3:36 PM PDT) + + + + + + | Component | Value | Ref Range | Performed | Pathologist | | | | | At | Signature | + + + + + + | RPR SRM | Non ReactiveComment: | Non Reactive | [facility] | | | QUAL | Rapid Plasma Reagin | | REG [facility] | | | | screening test is | | [facility] | | | | Non-Reactive. No further | | | | | | reflex testing is | | | | | | required.Performed by | | | | | | [id number] | | | | | | Rogelio Pickard, [facility] [place] | | | | | | [id number] | | | | | | [phone].[facility]. | | | | | | Gui butt MD, | | | | | | Lab. Director | | | | + + + + + + + + | Specimen | + + | Blood - Blood | | (substance) | + + + + + + + | Performing | Address | City/State/Zipcode | Phone Number | | Organization | | | | + + + + + | [facility] | [address] | [place], [place] | | | UN[facility] | | [id number] | | + + + + + VITAMIN B-12 (10/03/2017 3:36 PM PDT) + +-------+ + + + | Component | Value | Ref Range | Performed | Pathologist | | | | | At | Signature | + +-------+ + + + | VITAMIN B12 | 759 | 193 - 986 pg/mL | [facility] | | | | | | LABORATORY | | | | | | SERVICES, | | | | | | CORE | | + +-------+ + + + | COMMENT | 1 | | [facility] | | | (HEMO) | | | LABORATORY | | | | | | SERVICES, | | | | | | CORE | | + +-------+ + + + | COMMENT | 1 | | [facility] | | | (ICTERUS) | | | LABORATORY | | | | | | SERVICES, | | | | | | CORE | | + +-------+ + + + | COMMENT | 1 | | [facility] | | | (LIPEMIA) | | | LABORATORY | | | | | | SERVICES, | | | | | | CORE | | + +-------+ + + + + + | Specimen | + + | Blood - Blood | | (substance) | + + + + + + + | Performing | Address | City/State/Zipcode | Phone Number | | Organization | | | | + + + + + | [facility] | [address] | [place] [address] | | | SERVICES, CORE | [address] | | | + + + + + TSH (10/03/2017 3:36 PM PDT) + + + + + + | Component | Value | Ref Range | Performed | Pathologist | | | | | At | Signature | + + + + + + | TSH | 0.33 (L) | 0.46 - 5.56 | [facility] | | | | | mIU/L | LABORATORY | | | | | | SERVICES, | | | | | | CORE | | + + + + + + + + | Specimen | + + | Blood - Blood | | (substance) | + + + + + | Narrative | Performed At | + + + | TSH reference ranges are influenced by a variety of environmental | [facility] | | influences, age, gender and ethnicity. The supplied reference limits | LABORATORY | | are based on published values utilizing a similar TSH assay, and | ELIN, NATALEE | | should be interpreted with caution. | | + + + + + + + + | Performing | Address | City/State/Zipcode | Phone Number | | Organization | | | | + + + + + | [facility] | [address] | [place] [address] | | | NATALEE [place] | [address] | | | + + + + + HIV-1,2 AB/HIV-1 P24 AG SCRN (10/03/2017 3:36 PM PDT) + + + + + + | Component | Value | Ref Range | Performed | Pathologist | | | | | At | Signature | + + + + + + | HIV-1,2 | Negative | Negative | [facility] | | | AB/HIV-1 | | | LABORATORY | | | P24 AG | | | SERVICES, | | | SCREEN | | | SPECIAL IMM | | | | | | + COAG | | + + + + + + + + | Specimen | + + | Blood - Blood | | (substance) | + + + + + | Narrative | Performed At | + + + | HIV-1 p24 Ag and HIV-1,2 Ab not detected. Test modified from | [facility] | | original cement gun operator's approved specifications. The performance | LABORATORY | | of the [employer] HIV Combo test, with or without confirmation, was not | SERVICES, | | tested in pediatric patients less than 2 years of age. [facility] | SPECIAL IMM + | | guidelines recommend virologic assays (i.e. HIV 1 VIRAL LOAD) that | [facility] | | directly detect HIV for diagnosis of HIV infection in infants younger | | | than 2 years. | | + + + + + + + + | Performing | Address | City/State/Zipcode | Phone Number | | Organization | | | | + + + + + | [facility] | [address] | [place] [address] | | | SPECIAL [facility] | [address] | | | | IMM + [place] | | | | + + + + + CAPILLARY BLOOD GLUCOSE (NO CHG), POC (10/03/2017 1:40 PM PDT) + +---------+ + + + | Component | Value | Ref Range | Performed | Pathologist | | | | | At | Signature | + +---------+ + + + | BLOOD | 130 (H) | 70 - 99 mg/dL | [facility] - | | | GLUCOSE, | | | [place] | | | POC | | | [facility] | | | | | | OF CARE | | | | | | TESTS | | + +---------+ + + + + + | Specimen | + + | | + + + + + + + | Performing | Address | City/State/Zipcode | Phone Number | | Organization | | | | + + + + + | [facility] | [address] | [place], [place] | | | [facility] | [address] | [address] | | | TESTS | | | | + + + + + CAPILLARY BLOOD GLUCOSE (NO CHG), POC (10/03/2017 6:13 AM PDT) + +---------+ + + + | Component | Value | Ref Range | Performed | Pathologist | | | | | At | Signature | + +---------+ + + + | BLOOD | 109 (H) | 70 - 99 mg/dL | [facility] - | | | GLUCOSE, | | | [place] | | | POC | | | [facility] | | | | | | OF CARE | | | | | | TESTS | | + +---------+ + + + + + | Specimen | + + | | + + + + + + + | Performing | Address | City/State/Zipcode | Phone Number | | Organization | | | | + + + + + | [facility] | [address] | [place], [place] | | | [facility] | [address] | [address] | | | TESTS | | | | + + + + + CBC (HEMOGRAM) ONLY (10/03/2017 6:03 AM PDT) + + + + + + | Component | Value | Ref Range | Performed | Pathologist | | | | | At | Signature | + + + + + + | WHITE CELL | 9.40 | 3.50 - 10.80 | [facility] | | | COUNT | | K/cu mm | LABORATORY | | | | | | SERVICES, | | | | | | CORE | | + + + + + + | RED CELL | 4.46 (L) | 4.50 - 6.00 | [facility] | | | COUNT | | M/cu mm | LABORATORY | | | | | | SERVICES, | | | | | | CORE | | + + + + + + | HEMOGLOBIN | 13.1 (L) | 13.5 - 17.5 | [facility] | | | | | g/dL | LABORATORY | | | | | | SERVICES, | | | | | | CORE | | + + + + + + | HEMATOCRIT | 41.1 | 41.0 - 53.0 % | [facility] | | | | | | LABORATORY | | | | | | SERVICES, | | | | | | CORE | | + + + + + + | MCV | 92.2 | 80.0 - 100.0 fL | [facility] | | | | | | LABORATORY | | | | | | SERVICES, | | | | | | CORE | | + + + + + + | MCHC | 31.9 (L) | 32.0 - 36.0 | [facility] | | | | | g/dL | LABORATORY | | | | | | SERVICES, | | | | | | CORE | | + + + + + + | RDW SD | 60.2 (H) | 35.1 - 46.3 fL | [facility] | | | | | | LABORATORY | | | | | | SERVICES, | | | | | | CORE | | + + + + + + | PLATELET | 214 | 150 - 400 K/cu | [facility] | | | COUNT | | mm | LABORATORY | | | | | | SERVICES, | | | | | | CORE | | + + + + + + | MPV | 9.6 (L) | 9.7 - 12.3 fL | [facility] | | | | | | LABORATORY | | | | | | SERVICES, | | | | | | CORE | | + + + + + + | NRBC% | 0.0 | 0.0 - 0.3 % | [facility] | | | | | | LABORATORY | | | | | | SERVICES, | | | | | | CORE | | + + + + + + | NRBC# | 0.00 | 0.00 - 0.02 | [facility] | | | | | K/cu mm | LABORATORY | | | | | | SERVICES, | | | | | | CORE | | + + + + + + + + | Specimen | + + | Blood - Blood | | (substance) | + + + + + | Narrative | Performed At | + + + | New reference ranges for MCV, MCHC, PLT, IG% and IG# effective | [facility] | | 09/05/2017 | LABORATORY | | | SERVICES, CORE | + + + + + + + + | Performing | Address | City/State/Zipcode | Phone Number | | Organization | | | | + + + + + | [facility] | [address] | [place] [address] | | | SERVICES, CORE | [address] | | | + + + + + MAGNESIUM, PLASMA (10/03/2017 6:03 AM PDT) + +-------+ + + + | Component | Value | Ref Range | Performed | Pathologist | | | | | At | Signature | + +-------+ + + + | MAGNESIUM,P | 2.0 | 1.6 - 2.6 mg/dL | [facility] | | | [facility] | | | LABORATORY | | | | | | SERVICES, | | | | | | CORE | | + +-------+ + + + + + | Specimen | + + | Blood - Blood | | (substance) | + + + + + | Narrative | Performed At | + + + | Reference range change effective 12/11/16. | [facility] | | | LABORATORY | | | [facility] [place] | + + + + + + + + | Performing | Address | City/State/Zipcode | Phone Number | | Organization | | | | + + + + + | [facility] | [address] | [place] [address] | | | SERVICES, [place] | [address] | | | + + + + + RENAL FUNCTION SET (NA,K,CL,CO2,BUN,CREAT,GLUC,CA,PHOS,ALB ) (10/03/2017 6:03 AM PDT) + + + + + + | Component | Value | Ref Range | Performed | Pathologist | | | | | At | Signature | + + + + + + | GLUCOSE, | 115 (H) | 70 - 99 mg/dL | [facility] | | | PLASMA | | | LABORATORY | | | (LAB) | | | SERVICES, | | | | | | CORE | | + + + + + + | BUN, PLASMA | 18 | 6 - 20 mg/dL | [facility] | | | (LAB) | | | LABORATORY | | | | | | SERVICES, | | | | | | CORE | | + + + + + + | CREATININE | 0.56 (L) | 0.70 - 1.30 | [facility] | | | PLASMA | | mg/dL | LABORATORY | | | (LAB) | | | SERVICES, | | | | | | CORE | | + + + + + + | EGFR | >60 | >60 mL/min | [facility] | | | - | | | LABORATORY | | | SUDANESE | | | SERVICES, | | | | | | CORE | | + + + + + + | EGFR NON | >60 | >60 mL/min | [facility] | | | -KAYE | | | LABORATORY | | | RICAN | | | SERVICES, | | | | | | CORE | | + + + + + + | SODIUM, | 138 | 136 - 145 | [facility] | | | PLASMA | | mmol/L | LABORATORY | | | (LAB) | | | SERVICES, | | | | | | CORE | | + + + + + + | POTASSIUM, | 4.0 | 3.4 - 5.0 | [facility] | | | PLASMA | | mmol/L | LABORATORY | | | (LAB) | | | SERVICES, | | | | | | CORE | | + + + + + + | CHLORIDE, | 105 | 97 - 108 mmol/L | [facility] | | | PLASMA | | | LABORATORY | | | (LAB) | | | SERVICES, | | | | | | CORE | | + + + + + + | TOTAL CO2, | 26 | 21 - 32 mmol/L | [facility] | | | PLASMA | | | LABORATORY | | | (LAB) | | | SERVICES, | | | | | | CORE | | + + + + + + | CALCIUM, | 8.9 | 8.6 - 10.2 | [facility] | | | PLASMA | | mg/dL | LABORATORY | | | (LAB) | | | SERVICES, | | | | | | CORE | | + + + + + + | CALCIUM(ALB | 9.5 | 8.6 - 10.2 | [facility] | | | CORRECTED) | | mg/dL | LABORATORY | | | | | | SERVICES, | | | | | | CORE | | + + + + + + | ALBUMIN, | 3.3 (L) | 3.5 - 4.7 g/dL | [facility] | | | PLASMA | | | LABORATORY | | | (LAB) | | | SERVICES, | | | | | | CORE | | + + + + + + | PHOSPHORUS, | 4.5 | 2.4 - 4.7 mg/dL | [facility] | | | PLASMA | | | LABORATORY | | | (LAB) | | | SERVICES, | | | | | | CORE | | + + + + + + | POTASSIUM | No Hemo | | [facility] | | | CMNT | | | LABORATORY | | | | | | SERVICES, | | | | | | CORE | | + + + + + + | ANION GAP | 7 | 4 - 11 mmol/L | [facility] | | | | | | LABORATORY | | | | | | SERVICES, | | | | | | CORE | | + + + + + + | ANION | 8 | 4 - 11 mmol/L | [facility] | | | GAP(ALB | | | LABORATORY | | | CORRECTED) | | | SERVICES, | | | | | | CORE | | + + + + + + + + | Specimen | + + | Blood - Blood | | (substance) | + + + + + | Narrative | Performed At | + + + | GFR is estimated using the MDRD equation recommended by the | [facility] | | National Kidney Disease Education Program. Estimated GFR | LABORATORY | | Interpretive Information: <60 mL/min/1.73 sq m | SERVICES, CORE | | Chronic Kidney Disease <15 mL/min/1.73 sq m | | | Kidney Failure Estimated GFR greater that 60 mL/min/1.73 sq m is of | | | limited clinical value. The MDRD equation is not valid in the | | | following situations: - Patients under 18 years of age - Severe | | | malnutrition or obesity - Vegetarian diet - Rapidly changing kidney | | | function - Amputees, paraplegics, or other muscle-wasting diseses | | + + + + + + + + | Performing | Address | City/State/Zipcode | Phone Number | | Organization | | | | + + + + + | [facility] | [address] | [place] [address] | | | SERVICES, [place] | [address] | | | + + + + + CAPILLARY BLOOD GLUCOSE (NO CHG), POC (10/03/2017 12:05 AM PDT) + +-------+ + + + | Component | Value | Ref Range | Performed | Pathologist | | | | | At | Signature | + +-------+ + + + | BLOOD | 96 | 70 - 99 mg/dL | [facility] - | | | GLUCOSE, | | | [facility] | | | POC | | | [place] | | | | | | OF CARE | | | | | | TESTS | | + +-------+ + + + + + | Specimen | + + | | + + + + + + + | Performing | Address | City/State/Zipcode | Phone Number | | Organization | | | | + + + + + | [facility] | [address] | [place], [place] | | | [facility] | [address] | [phone] | | | TESTS | | | | + + + + + X-RAY SPINE CERVICAL 2 VIEWS (10/02/2017 10:32 PM PDT) + + | Specimen | + + | | + + + + + | Narrative | Performed At | + + + | EXAM: SPINE CERVICAL 2 VIEWS HISTORY: eval previous cervical | [facility] | | fractures. Please perform AP & lateral views and include to T3 if | RADIOLOGY VOICE | | able. COMPARISON: 09/14/2017 FINDINGS: A back brace and | RECOGNITION 2 | | nasogastric tube obscure osseous detail the neck. The known mildly | | | displaced C6 spinous process fracture is partially obscured, but | | | appears unchanged. The bilateral C7 laminar fractures and T4 fracture | | | are not well visualized radiographically due to overlying bone and | | | soft tissue. There is 1-2 mm C4-C5 anterolisthesis. Multilevel | | | degenerative findings of the mid to lower cervical spine are | | | unchanged. Soft tissue swelling of posterior neck is unchanged. | | | IMPRESSION: Minimally displaced C6 spinous process fracture | | | appears similar. Known fractures of C7 and T4 are not well seen. | | | Mid to lower cervical degenerative disc disease and facet arthrosis | | | are unchanged. I have personally reviewed the images and, if | | | necessary, edited the report. I agree with the report as now | | | presented. Final signature: Julian Perkins MD 10/03/2017 8:38 AM | | | Preliminary: Master Watson MD Dictation initiated: Master Whitman | | | MD Walter 10/03/2017 8:28 AM | | + + + + + | Procedure Note | + + | Service Account, Radiant Res In Interface - 10/03/2017 8:39 AM PDT EXAM: SPINE | | CERVICAL 2 VIEWS HISTORY: eval previous cervical fractures. Please perform AP & lateral | | views and include to T3 if able. COMPARISON: 09/14/2017 FINDINGS: A back brace and | | nasogastric tube obscure osseous detail the neck. The known mildly displaced C6 spinous | | process fracture is partially obscured, but appears unchanged. The bilateral C7 laminar | | fractures and T4 fracture are not well visualized radiographically due to overlying bone | | and soft tissue. There is 1-2 mm C4-C5 anterolisthesis. Multilevel degenerative | | findings of the mid to lower cervical spine are unchanged. Soft tissue swelling of | | posterior neck is unchanged. IMPRESSION: Minimally displaced C6 spinous process fracture | | appears similar. Known fractures of C7 and T4 are not well seen. Mid to lower cervical | | degenerative disc disease and facet arthrosis are unchanged. I have personally reviewed | | the images and, if necessary, edited the report. I agree with the report as now | | presented. Final signature: Julian Perkins MD 10/03/2017 8:38 AM Preliminary: Master Whitman | | MD Walter Dictation initiated: Master Watson MD 10/03/2017 8:28 AM | |Minimally displaced C6 spinous process fracture appears similar. | | | |Known fractures of C7 and T4 are not well seen. | | | |Mid to lower cervical degenerative disc disease and facet arthrosis are unchanged. | | | |I have personally reviewed the images and, if necessary, edited the report. I agree with th e report as now presented. | | | |Final signature: Julian Perkins MD 10/03/2017 8:38 AM | |Preliminary: Master Watson MD | |Dictation initiated: Master Watson MD 10/03/2017 8:28 AM | + + + +---------+ + + | Performing | Address | City/State/Zipcode | Phone Number | | Organization | | | | + +---------+ + + | [facility] | | | | | VOICE RECOGNITION 2 | | | | + +---------+ + + CAPILLARY BLOOD GLUCOSE (NO CHG), POC (10/02/2017 6:54 PM PDT) + +-------+ + + + | Component | Value | Ref Range | Performed | Pathologist | | | | | At | Signature | + +-------+ + + + | BLOOD | 95 | 70 - 99 mg/dL | [facility] - | | | GLUCOSE, | | | [facility] | | | POC | | | [facility] | | | | | | OF CARE | | | | | | TESTS | | + +-------+ + + + + + | Specimen | + + | | + + + + + + + | Performing | Address | City/State/Zipcode | Phone Number | | Organization | | | | + + + + + | [facility] | [address] | [place], [place] | | | [facility] | [address] | [address] | | | TESTS | | | | + + + + + 12 LEAD ECG (10/02/2017 4:33 PM PDT) + + + + + + | Component | Value | Ref Range | Performed | Pathologist | | | | | At | Signature | + + + + + + | VENTRICULAR | 82 | bpm | [facility] | | | RATE | | | OF | | | | | | CARDIOLOGY | | + + + + + + | ATRIAL RATE | 227 | ms | [facility] | | | | | | OF | | | | | | CARDIOLOGY | | + + + + + + | P-R | 127 | ms | [facility] | | | INTERVAL | | | OF | | | | | | CARDIOLOGY | | + + + + + + | P AXIS | 50 | deg | [facility] | | | | | | OF | | | | | | CARDIOLOGY | | + + + + + + | QRS | 128 | ms | [facility] | | | DURATION | | | OF | | | | | | CARDIOLOGY | | + + + + + + | QT | 413 | ms | [facility] | | | | | | OF | | | | | | CARDIOLOGY | | + + + + + + | ANA LILIA-HALIMA | 484 | ms | [facility] | | | | | | OF | | | | | | CARDIOLOGY | | + + + + + + | R AXIS | 95 | deg | [facility] | | | | | | OF | | | | | | CARDIOLOGY | | + + + + + + | T AXIS | 54 | deg | [facility] | | | | | | OF | | | | | | CARDIOLOGY | | + + + + + + | ECG | Probable Sinus rhythm | | [facility] | | | IMPRESSION | | | OF | | | | | | CARDIOLOGY | | + + + + + + | ECG | Right bundle branch | | [facility] | | | IMPRESSION | block | | OF | | | | | | CARDIOLOGY | | + + + + + + | ECG | ARTIFACT- ABNORMAL ECG - | | [facility] | | | IMPRESSION | | | OF | | | | | | CARDIOLOGY | | + + + + + + | ECG | Electronically signed | | [facility] | | | IMPRESSION | by: GABRIELA VANN | | OF | | | | 10-02-2017 20:43:54 | | CARDIOLOGY | | + + + + + + + + | Specimen | + + | | + + + + + | Narrative | Performed At | + + + | | | + + + + + + + + | Performing | Address | City/State/Zipcode | Phone Number | | Organization | | | | + + + + + | [facility] | [address] | [place], [place] | | | CARDIOLOGY | [address] | [address] | | + + + + + PROCEDURE NOTE (10/02/2017 2:12 PM PDT) + + + | Narrative | Performed At | + + + | Winnie Hernandez RN 10/02/2017 2:15 PM PICC tip malpositioned | | | in the Azygous vessel, attempted to power flush catheter back into a | | | central location. Chest film now shows PICC tip in a | | | contra-lateral position (tip in the Right IJ) Catheter not central. | | | Called RN and notified her line not central and either needs to be | | | pulled back into a midline position or replaced if they need | | | central access. RN will discuss with primary medical team and have | | | them come up with a plan. Please page the vascular access team | | | with any future needs regarding this issue. | | + + + X-RAY PORTABLE CHEST 1 VIEW (10/02/2017 1:58 PM PDT) + + | Specimen | + + | | + + + + + | Narrative | Performed At | + + + | EXAM: CO CHEST 1 VIEW HISTORY: Evaluate PICC placement | [facility] | | COMPARISON: Earlier today FINDINGS: Left upper extremity PICC | RADIOLOGY VOICE | | extends cephalad into the right brachiocephalic vein with tip | RECOGNITION 2 | | projecting at the medial right clavicle. There is minimal | | | bibasilar atelectasis, the lungs are otherwise clear. There is no | | | pulmonary edema. Cardiomediastinal silhouette within normal limits. No | | | definite pleural effusion. No pneumothorax. IMPRESSION: Left | | | upper extremity PICC extends into the right brachiocephalic vein | | | directed cephalad with tip at the level of the medial right clavicle. | | | Minimal bibasilar atelectasis, otherwise clear lungs. I have | | | personally reviewed the images and, if necessary, edited the report. I | | | agree with the report as now presented. Final signature: Marcelo | | | MD Milli 10/02/2017 2:06 PM Preliminary: Marcelo Morley MD | | | Dictation initiated: Marcelo Morley MD 10/02/2017 2:04 PM | | + + + + + | Procedure Note | + + | Service Account, Radiant Res In Interface - 10/02/2017 2:07 PM PDT EXAM: CO CHEST 1 | | VIEW HISTORY: Evaluate PICC placement COMPARISON: Earlier today FINDINGS: Left upper | | extremity PICC extends cephalad into the right brachiocephalic vein with tip projecting | | at the medial right clavicle. There is minimal bibasilar atelectasis, the lungs are | | otherwise clear. There is no pulmonary edema. Cardiomediastinal silhouette within normal | | limits. No definite pleural effusion. No pneumothorax. IMPRESSION: Left upper extremity | | PICC extends into the right brachiocephalic vein directed cephalad with tip at the | | level of the medial right clavicle. Minimal bibasilar atelectasis, otherwise clear | | lungs. I have personally reviewed the images and, if necessary, edited the report. I | | agree with the report as now presented. Final signature: Marcelo Morley MD 10/02/2017 | | 2:06 PM Preliminary: Marcelo Morley MD Dictation initiated: Marcelo Morley MD | | 10/02/2017 2:04 PM | |IMPRESSION: | | | |Left upper extremity PICC extends into the right brachiocephalic vein directed cephalad wit h tip at the level of the medial right clavicle. | | | |Minimal bibasilar atelectasis, otherwise clear lungs. | | | |I have personally reviewed the images and, if necessary, edited the report. I agree with th e report as now presented. | | | |Final signature: Marcelo Morley MD 10/02/2017 2:06 PM | |Preliminary: Marcelo Morley MD | |Dictation initiated: Marcelo Morley MD 10/02/2017 2:04 PM | + + + +---------+ + + | Performing | Address | City/State/Zipcode | Phone Number | | Organization | | | | + +---------+ + + | [facility] | | | | | VOICE RECOGNITION 2 | | | | + +---------+ + + CAPILLARY BLOOD GLUCOSE (NO CHG), POC (10/02/2017 12:30 PM PDT) + +---------+ + + + | Component | Value | Ref Range | Performed | Pathologist | | | | | At | Signature | + +---------+ + + + | BLOOD | 102 (H) | 70 - 99 mg/dL | [facility] - | | | GLUCOSE, | | | [facility] | | | POC | | | [facility] | | | | | | OF CARE | | | | | | TESTS | | + +---------+ + + + + + | Specimen | + + | | + + + + + + + | Performing | Address | City/State/Zipcode | Phone Number | | Organization | | | | + + + + + | [facility] | [address] | [place], [place] | | | [facility] | [address] | [address] | | | TESTS | | | | + + + + + X-RAY PORTABLE CHEST 1 VIEW (10/02/2017 8:56 AM PDT) + + | Specimen | + + | | + + + + + | Narrative | Performed At | + + + | EXAM: CO CHEST 1 VIEW HISTORY: new leukocytosis, eval for | [facility] | | aspiration pneumonia COMPARISON: 09/16/2017, limited abdomen | RADIOLOGY VOICE | | yesterday FINDINGS: Left upper extremity PICC projects into | RECOGNITION 2 | | the azygos arch. Feeding tube tip in the stomach. The | | | cardiomediastinal contour is normal. The lungs are clear. There is no | | | pleural effusion or pneumothorax. There is no pulmonary edema. The | | | bones are intact. IMPRESSION: Clear lungs. Left upper | | | extremity PICC tip projecting in the azygous arch. These results | | | were discussed with Sherine Sarmiento on 10/02/2017 10:20 AM by | | | Marcelo Morley MD. I have personally reviewed the images and, if | | | necessary, edited the report. I agree with the report as now | | | presented. Final signature: Marcelo Morley MD 10/02/2017 10:26 | | | AM Preliminary: Marcelo Morley MD Dictation initiated: Marcelo Radford | Prabhakar Morley MD 10/02/2017 10:20 AM | | + + + + + | Procedure Note | + + | Service Account, Radiant Res In Interface - 10/02/2017 10:27 AM PDT EXAM: CO CHEST 1 | | VIEW HISTORY: new leukocytosis, eval for aspiration pneumonia COMPARISON: 09/16/2017, | | limited abdomen yesterday FINDINGS: Left upper extremity PICC projects into the azygos | | arch. Feeding tube tip in the stomach. The cardiomediastinal contour is normal. The | | lungs are clear. There is no pleural effusion or pneumothorax. There is no pulmonary | | edema. The bones are intact. IMPRESSION: Clear lungs. Left upper extremity PICC tip | | projecting in the azygous arch. These results were discussed with Sherine Sarmiento | | on 10/02/2017 10:20 AM by Marcelo Morley MD. I have personally reviewed the images and, if | | necessary, edited the report. I agree with the report as now presented. Final | | signature: Marcelo Morley MD 10/02/2017 10:26 AM Preliminary: Marcelo Morley MD | | Dictation initiated: Marcelo Morley MD 10/02/2017 10:20 AM | | | |IMPRESSION: | | | |Clear lungs. | | | |Left upper extremity PICC tip projecting in the azygous arch. | | | |These results were discussed with Sherine Sarmiento on 10/02/2017 10:20 AM by Marcelo barrett MD. | | | |I have personally reviewed the images and, if necessary, edited the report. I agree with e report as now presented. | | | |Final signature: Marcelo Morley MD 10/02/2017 10:26 AM | |Preliminary: Marcelo Morley MD | |Dictation initiated: Marcelo Morley MD 10/02/2017 10:20 AM | + + + +---------+ + + | Performing | Address | City/State/Zipcode | Phone Number | | Organization | | | | + +---------+ + + | [facility] | | | | | VOICE RECOGNITION 2 | | | | + +---------+ + + CAPILLARY BLOOD GLUCOSE (NO CHG), POC (10/02/2017 6:04 AM PDT) + +---------+ + + + | Component | Value | Ref Range | Performed | Pathologist | | | | | At | Signature | + +---------+ + + + | BLOOD | 158 (H) | 70 - 99 mg/dL | [facility] - | | | GLUCOSE, | | | [facility] | | | POC | | | [facility] | | | | | | OF CARE | | | | | | TESTS | | + +---------+ + + + + + | Specimen | + + | | + + + + + + + | Performing | Address | City/State/Zipcode | Phone Number | | Organization | | | | + + + + + | [facility] | [address] | [place], [place] | | | [place] [facility] | [address] | [address] | | | TESTS | | | | + + + + + CBC (HEMOGRAM) ONLY (10/02/2017 5:12 AM PDT) + + + + + + | Component | Value | Ref Range | Performed | Pathologist | | | | | At | Signature | + + + + + + | WHITE CELL | 12.64 (H) | 3.50 - 10.80 | [facility] | | | COUNT | | K/cu mm | LABORATORY | | | | | | SERVICES, | | | | | | CORE | | + + + + + + | RED CELL | 4.51 | 4.50 - 6.00 | [facility] | | | COUNT | | M/cu mm | LABORATORY | | | | | | SERVICES, | | | | | | CORE | | + + + + + + | HEMOGLOBIN | 13.5 | 13.5 - 17.5 | [facility] | | | | | g/dL | LABORATORY | | | | | | SERVICES, | | | | | | CORE | | + + + + + + | HEMATOCRIT | 40.9 (L) | 41.0 - 53.0 % | [facility] | | | | | | LABORATORY | | | | | | SERVICES, | | | | | | CORE | | + + + + + + | MCV | 90.7 | 80.0 - 100.0 fL | [facility] | | | | | | LABORATORY | | | | | | SERVICES, | | | | | | CORE | | + + + + + + | MCHC | 33.0 | 32.0 - 36.0 | [facility] | | | | | g/dL | LABORATORY | | | | | | SERVICES, | | | | | | CORE | | + + + + + + | RDW SD | 57.4 (H) | 35.1 - 46.3 fL | [facility] | | | | | | LABORATORY | | | | | | SERVICES, | | | | | | CORE | | + + + + + + | PLATELET | 210 | 150 - 400 K/cu | [facility] | | | COUNT | | mm | LABORATORY | | | | | | SERVICES, | | | | | | CORE | | + + + + + + | MPV | 9.1 (L) | 9.7 - 12.3 fL | [facility] | | | | | | LABORATORY | | | | | | SERVICES, | | | | | | CORE | | + + + + + + | NRBC% | 0.0 | 0.0 - 0.3 % | [facility] | | | | | | LABORATORY | | | | | | SERVICES, | | | | | | CORE | | + + + + + + | NRBC# | 0.00 | 0.00 - 0.02 | [facility] | | | | | K/cu mm | LABORATORY | | | | | | SERVICES, | | | | | | CORE | | + + + + + + + + | Specimen | + + | Blood - Blood | | (substance) | + + + + + | Narrative | Performed At | + + + | New reference ranges for MCV, MCHC, PLT, IG% and IG# effective | [facility] | | 09/05/2017 | LABORATORY | | | SERVICES, CORE | + + + + + + + + | Performing | Address | City/State/Zipcode | Phone Number | | Organization | | | | + + + + + | [id number] | [address] | [place] [address] | | | SERVICES, CORE | [address] | | | + + + + + MAGNESIUM, PLASMA (10/02/2017 5:12 AM PDT) + +-------+ + + + | Component | Value | Ref Range | Performed | Pathologist | | | | | At | Signature | + +-------+ + + + | MAGNESIUM,P | 2.1 | 1.6 - 2.6 mg/dL | [facility] | | | LASMA | | | LABORATORY | | | | | | SERVICES, | | | | | | CORE | | + +-------+ + + + + + | Specimen | + + | Blood - Blood | | (substance) | + + + + + | Narrative | Performed At | + + + | Reference range change effective 12/11/16. | [facility] | | | LABORATORY | | | SERVICES, CORE | + + + + + + + + | Performing | Address | City/State/Zipcode | Phone Number | | Organization | | | | + + + + + | [facility] | [address] | [place] [address] | | | SERVICES, CORE | [address] | | | + + + + + RENAL FUNCTION SET (NA,K,CL,CO2,BUN,CREAT,GLUC,CA,PHOS,ALB ) (10/02/2017 5:12 AM PDT) + + + + + + | Component | Value | Ref Range | Performed | Pathologist | | | | | At | Signature | + + + + + + | GLUCOSE, | 99 | 70 - 99 mg/dL | [facility] | | | PLASMA | | | LABORATORY | | | (LAB) | | | SERVICES, | | | | | | CORE | | + + + + + + | BUN, PLASMA | 15 | 6 - 20 mg/dL | [facility] | | | (LAB) | | | LABORATORY | | | | | | SERVICES, | | | | | | CORE | | + + + + + + | CREATININE | 0.51 (L) | 0.70 - 1.30 | [facility] | | | PLASMA | | mg/dL | LABORATORY | | | (LAB) | | | SERVICES, | | | | | | CORE | | + + + + + + | EGFR | >60 | >60 mL/min | [facility] | | | - | | | LABORATORY | | | SUDANESE | | | SERVICES, | | | | | | CORE | | + + + + + + | EGFR NON | >60 | >60 mL/min | [facility] | | | -KAYE | | | LABORATORY | | | RICAN | | | SERVICES, | | | | | | CORE | | + + + + + + | SODIUM, | 140 | 136 - 145 | [facility] | | | PLASMA | | mmol/L | LABORATORY | | | (LAB) | | | SERVICES, | | | | | | CORE | | + + + + + + | POTASSIUM, | 4.1 | 3.4 - 5.0 | [facility] | | | PLASMA | | mmol/L | LABORATORY | | | (LAB) | | | SERVICES, | | | | | | CORE | | + + + + + + | CHLORIDE, | 104 | 97 - 108 mmol/L | [facility] | | | PLASMA | | | LABORATORY | | | (LAB) | | | SERVICES, | | | | | | CORE | | + + + + + + | TOTAL CO2, | 25 | 21 - 32 mmol/L | [facility] | | | PLASMA | | | LABORATORY | | | (LAB) | | | SERVICES, | | | | | | CORE | | + + + + + + | CALCIUM, | 9.1 | 8.6 - 10.2 | [facility] | | | PLASMA | | mg/dL | LABORATORY | | | (LAB) | | | SERVICES, | | | | | | CORE | | + + + + + + | CALCIUM(ALB | 9.6 | 8.6 - 10.2 | [facility] | | | CORRECTED) | | mg/dL | LABORATORY | | | | | | SERVICES, | | | | | | CORE | | + + + + + + | ALBUMIN, | 3.4 (L) | 3.5 - 4.7 g/dL | [facility] | | | PLASMA | | | LABORATORY | | | (LAB) | | | SERVICES, | | | | | | CORE | | + + + + + + | PHOSPHORUS, | 4.2 | 2.4 - 4.7 mg/dL | [facility] | | | PLASMA | | | LABORATORY | | | (LAB) | | | SERVICES, | | | | | | CORE | | + + + + + + | POTASSIUM | No Hemo | | [facility] | | | CMNT | | | LABORATORY | | | | | | SERVICES, | | | | | | CORE | | + + + + + + | ANION GAP | 11 | 4 - 11 mmol/L | [facility] | | | | | | LABORATORY | | | | | | SERVICES, | | | | | | CORE | | + + + + + + | ANION | 12 (H) | 4 - 11 mmol/L | [facility] | | | GAP(ALB | | | LABORATORY | | | CORRECTED) | | | SERVICES, | | | | | | CORE | | + + + + + + + + | Specimen | + + | Blood - Blood | | (substance) | + + + + + | Narrative | Performed At | + + + | GFR is estimated using the MDRD equation recommended by the | [facility] | | National Kidney Disease Education Program. Estimated GFR | LABORATORY | | Interpretive Information: <60 mL/min/1.73 sq m | SERVICES, CORE | | Chronic Kidney Disease <15 mL/min/1.73 sq m | | | Kidney Failure Estimated GFR greater that 60 mL/min/1.73 sq m is of | | | limited clinical value. The MDRD equation is not valid in the | | | following situations: - Patients under 18 years of age - Severe | | | malnutrition or obesity - Vegetarian diet - Rapidly changing kidney | | | function - Amputees, paraplegics, or other muscle-wasting diseses | | + + + + + + + + | Performing | Address | City/State/Zipcode | Phone Number | | Organization | | | | + + + + + | [facility] | [address] | [place] [address] | | | SERVICES, CORE | [address] | | | + + + + + CAPILLARY BLOOD GLUCOSE (NO CHG), POC (10/02/2017 12:21 AM PDT) + +---------+ + + + | Component | Value | Ref Range | Performed | Pathologist | | | | | At | Signature | + +---------+ + + + | BLOOD | 133 (H) | 70 - 99 mg/dL | [facility] - | | | GLUCOSE, | | | [facility] | | | POC | | | [facility] | | | | | | OF CARE | | | | | | TESTS | | + +---------+ + + + + + | Specimen | + + | | + + + + + + + | Performing | Address | City/State/Zipcode | Phone Number | | Organization | | | | + + + + + | [facility] | [address] | [place], [place] | | | [facility] OF [facility] | [facility] | [phone] | | | TESTS | | | | + + + + + CAPILLARY BLOOD GLUCOSE (NO CHG), POC (10/01/2017 7:31 PM PDT) + +---------+ + + + | Component | Value | Ref Range | Performed | Pathologist | | | | | At | Signature | + +---------+ + + + | BLOOD | 104 (H) | 70 - 99 mg/dL | [facility] - | | | GLUCOSE, | | | [facility] | | | POC | | | [facility] | | | | | | OF CARE | | | | | | TESTS | | + +---------+ + + + + + | Specimen | + + | | + + + + + + + | Performing | Address | City/State/Zipcode | Phone Number | | Organization | | | | + + + + + | [facility] | [address] | [place], [place] | | | [facility] | [address] | [phone] | | | TESTS | | | | + + + + + X-RAY ABD LTD FEEDING TUBE EVAL (10/01/2017 1:23 PM PDT) + + | Specimen | + + | | + + + + + | Narrative | Performed At | + + + | EXAM: ABD LTD FEEDING TUBE EVAL INDICATION: DHT placement | [facility] | | TECHNIQUE: Semi-upright portable view of the upper abdomen. | RADIOLOGY VOICE | | Comparison: None available.. FINDINGS/IMPRESSION: Dobbhoff | RECOGNITION 2 | | tube extends into the mid stomach, looped upon itself, tip in the | | | fundus. No disproportionate dilation of small or large bowel to | | | suggest obstruction. No free air or portal venous gas identified. | | | In addition, the left-sided PICC line appears to curve upwards and | | | terminate in the distal right brachiocephalic vein rather than | | | extending inferiorly into the SVC. I have personally reviewed the | | | images and, if necessary, edited the report. I agree with the report | | | as now presented. Final signature: Edelmira Parsons MD | | | 10/01/2017 2:13 PM Preliminary: Edelmira Parsons MD Dictation | | | initiated: Edelmira Parsons MD 10/01/2017 2:08 PM | | + + + + + | Procedure Note | + + | Service Account, Radiant Res In Interface - 10/01/2017 2:15 PM PDT EXAM: ABD LTD | | FEEDING TUBE EVAL INDICATION: DHT placement TECHNIQUE: Semi-upright portable view of the | | upper abdomen. Comparison: None available.. FINDINGS/IMPRESSION: Dobbhoff tube extends | | into the mid stomach, looped upon itself, tip in the fundus. No disproportionate | | dilation of small or large bowel to suggest obstruction. No free air or portal venous | | gas identified. In addition, the left-sided PICC line appears to curve upwards and | | terminate in the distal right brachiocephalic vein rather than extending inferiorly into | | the SVC. I have personally reviewed the images and, if necessary, edited the report. I | | agree with the report as now presented. Final signature: Edelmira Parsons MD | | 10/01/2017 2:13 PM Preliminary: Edelmira Parsons MD Dictation initiated: Edelmira Parsons MD 10/01/2017 2:08 PM | | | |In addition, the left-sided PICC line appears to curve upwards and terminate in the distal right brachiocephalic vein rather than extending inferiorly into the SVC. | | | |I have personally reviewed the images and, if necessary, edited the report. I agree with th e report as now presented. | | | |Final signature: Edelmira Parsons MD 10/01/2017 2:13 PM | |Preliminary: Edelmira Parsons MD | |Dictation initiated: Edelmira Parsons MD 10/01/2017 2:08 PM | + + + +---------+ + + | Performing | Address | City/State/Zipcode | Phone Number | | Organization | | | | + +---------+ + + | [facility] | | | | | VOICE RECOGNITION 2 | | | | + +---------+ + + CAPILLARY BLOOD GLUCOSE (NO CHG), POC (10/01/2017 12:14 PM PDT) + +---------+ + + + | Component | Value | Ref Range | Performed | Pathologist | | | | | At | Signature | + +---------+ + + + | BLOOD | 107 (H) | 70 - 99 mg/dL | [facility] - | | | GLUCOSE, | | | [facility] | | | POC | | | [facility] | | | | | | OF CARE | | | | | | TESTS | | + +---------+ + + + + + | Specimen | + + | | + + + + + + + | Performing | Address | City/State/Zipcode | Phone Number | | Organization | | | | + + + + + | [facility] | [phone] | [place], [place] | | | [facility] OF [facility] | [address] | [address] | | | TESTS | | | | + + + + + VASC LAB VENOUS DUPLEX LOWER EXTREMITY BILAT COMP (10/01/2017 11:14 AM PDT) + + | Specimen | + + | | + + + + + | Narrative | Performed At | + + + | Bilateral: The duplex scanner was used to examine the deep and | [facility] | | superficial veins of the right and left lower extremities. The | RADIOLOGY VASC | | veins are patent bilaterally with normal flow and responses to | US | | augmentation and compression maneuvers and no thrombus is noted. | | | Conclusions: A normal venous examination of the bilateral lower | | | extremities. No venous thrombosis was detected. I have | | | personally reviewed the images and, if necessary, edited the report. | | | I agree with the report as now presented. | | + + + + + | Procedure Note | + + | Service Account, Kostas Casper In Interface - 10/01/2017 11:34 AM PDT Bilateral: The | | duplex scanner was used to examine the deep and superficial veins of the right and left | | lower extremities. The veins are patent bilaterally with normal flow and responses to | | augmentation and compression maneuvers and no thrombus is noted.Conclusions: A normal | | venous examination of the bilateral lower extremities. No venous thrombosis was | | detected.I have personally reviewed the images and, if necessary, edited the report. I | | agree with the report as now presented. | | | | | |I have personally reviewed the images and, if necessary, edited the report. I agree with t he report as now presented. | + + + +---------+ + + | Performing | Address | City/State/Zipcode | Phone Number | | Organization | | | | + +---------+ + + | [facility] | | | | | VASC US | | | | + +---------+ + + CAPILLARY BLOOD GLUCOSE (NO CHG), POC (10/01/2017 5:50 AM PDT) + +---------+ + + + | Component | Value | Ref Range | Performed | Pathologist | | | | | At | Signature | + +---------+ + + + | BLOOD | 130 (H) | 70 - 99 mg/dL | [facility] - | | | GLUCOSE, | | | [facility] | | | POC | | | [facility] | | | | | | OF CARE | | | | | | TESTS | | + +---------+ + + + + + | Specimen | + + | | + + + + + + + | Performing | Address | City/State/Zipcode | Phone Number | | Organization | | | | + + + + + | [facility] | [address] | [place], [place] | | | [place] [place] [facility] | [address] | [phone] | | | TESTS | | | | + + + + + CBC (HEMOGRAM) ONLY (10/01/2017 5:25 AM PDT) + + + + + + | Component | Value | Ref Range | Performed | Pathologist | | | | | At | Signature | + + + + + + | WHITE CELL | 9.02 | 3.50 - 10.80 | [facility] | | | COUNT | | K/cu mm | LABORATORY | | | | | | SERVICES, | | | | | | CORE | | + + + + + + | RED CELL | 4.24 (L) | 4.50 - 6.00 | [facility] | | | COUNT | | M/cu mm | LABORATORY | | | | | | SERVICES, | | | | | | CORE | | + + + + + + | HEMOGLOBIN | 12.5 (L) | 13.5 - 17.5 | [facility] | | | | | g/dL | LABORATORY | | | | | | SERVICES, | | | | | | CORE | | + + + + + + | HEMATOCRIT | 38.4 (L) | 41.0 - 53.0 % | [facility] | | | | | | LABORATORY | | | | | | SERVICES, | | | | | | CORE | | + + + + + + | MCV | 90.6 | 80.0 - 100.0 fL | [facility] | | | | | | LABORATORY | | | | | | SERVICES, | | | | | | CORE | | + + + + + + | MCHC | 32.6 | 32.0 - 36.0 | [facility] | | | | | g/dL | LABORATORY | | | | | | SERVICES, | | | | | | CORE | | + + + + + + | RDW SD | 58.0 (H) | 35.1 - 46.3 fL | [facility] | | | | | | LABORATORY | | | | | | SERVICES, | | | | | | CORE | | + + + + + + | PLATELET | 189 | 150 - 400 K/cu | [facility] | | | COUNT | | mm | LABORATORY | | | | | | SERVICES, | | | | | | CORE | | + + + + + + | MPV | 9.3 (L) | 9.7 - 12.3 fL | [facility] | | | | | | LABORATORY | | | | | | SERVICES, | | | | | | CORE | | + + + + + + | NRBC% | 0.0 | 0.0 - 0.3 % | [facility] | | | | | | LABORATORY | | | | | | SERVICES, | | | | | | CORE | | + + + + + + | NRBC# | 0.00 | 0.00 - 0.02 | [facility] | | | | | K/cu mm | LABORATORY | | | | | | SERVICES, | | | | | | CORE | | + + + + + + + + | Specimen | + + | Blood - Blood | | (substance) | + + + + + | Narrative | Performed At | + + + | New reference ranges for MCV, MCHC, PLT, IG% and IG# effective | [facility] | | 09/05/2017 | LABORATORY | | | SERVICES, NATALEE | + + + + + + + + | Performing | Address | City/State/Zipcode | Phone Number | | Organization | | | | + + + + + | [facility] | [address] | [place] [address] | | | ELIN, NATALEE | [address] | | | + + + + + MAGNESIUM, PLASMA (10/01/2017 5:25 AM PDT) + +-------+ + + + | Component | Value | Ref Range | Performed | Pathologist | | | | | At | Signature | + +-------+ + + + | MAGNESIUM,P | 2.0 | 1.6 - 2.6 mg/dL | [facility] | | | LASMA | | | LABORATORY | | | | | | SERVICES, | | | | | | CORE | | + +-------+ + + + + + | Specimen | + + | Blood - Blood | | (substance) | + + + + + | Narrative | Performed At | + + + | Reference range change effective 12/11/16. | [facility] | | | LABORATORY | | | SERVICES, CORE | + + + + + + + + | Performing | Address | City/State/Zipcode | Phone Number | | Organization | | | | + + + + + | [facility] | [address] | [place] [address] | | | SERVICES, CORE | [address] | | | + + + + + RENAL FUNCTION SET (NA,K,CL,CO2,BUN,CREAT,GLUC,CA,PHOS,ALB ) (10/01/2017 5:25 AM PDT) + + + + + + | Component | Value | Ref Range | Performed | Pathologist | | | | | At | Signature | + + + + + + | GLUCOSE, | 129 (H) | 70 - 99 mg/dL | [facility] | | | PLASMA | | | LABORATORY | | | (LAB) | | | SERVICES, | | | | | | CORE | | + + + + + + | BUN, PLASMA | 16 | 6 - 20 mg/dL | [facility] | | | (LAB) | | | LABORATORY | | | | | | SERVICES, | | | | | | CORE | | + + + + + + | CREATININE | 0.46 (L) | 0.70 - 1.30 | [facility] | | | PLASMA | | mg/dL | LABORATORY | | | (LAB) | | | SERVICES, | | | | | | CORE | | + + + + + + | EGFR | >60 | >60 mL/min | [facility] | | | - | | | LABORATORY | | | SUDANESE | | | SERVICES, | | | | | | CORE | | + + + + + + | EGFR NON | >60 | >60 mL/min | [facility] | | | -KAYE | | | LABORATORY | | | RICAN | | | SERVICES, | | | | | | CORE | | + + + + + + | SODIUM, | 139 | 136 - 145 | [facility] | | | PLASMA | | mmol/L | LABORATORY | | | (LAB) | | | SERVICES, | | | | | | CORE | | + + + + + + | POTASSIUM, | 3.8 | 3.4 - 5.0 | [facility] | | | PLASMA | | mmol/L | LABORATORY | | | (LAB) | | | SERVICES, | | | | | | CORE | | + + + + + + | CHLORIDE, | 105 | 97 - 108 mmol/L | [facility] | | | PLASMA | | | LABORATORY | | | (LAB) | | | SERVICES, | | | | | | CORE | | + + + + + + | TOTAL CO2, | 27 | 21 - 32 mmol/L | [facility] | | | PLASMA | | | LABORATORY | | | (LAB) | | | SERVICES, | | | | | | CORE | | + + + + + + | CALCIUM, | 8.7 | 8.6 - 10.2 | [facility] | | | PLASMA | | mg/dL | LABORATORY | | | (LAB) | | | SERVICES, | | | | | | CORE | | + + + + + + | CALCIUM(ALB | 9.4 | 8.6 - 10.2 | [facility] | | | CORRECTED) | | mg/dL | LABORATORY | | | | | | SERVICES, | | | | | | CORE | | + + + + + + | ALBUMIN, | 3.1 (L) | 3.5 - 4.7 g/dL | [facility] | | | PLASMA | | | LABORATORY | | | (LAB) | | | SERVICES, | | | | | | CORE | | + + + + + + | PHOSPHORUS, | 3.8 | 2.4 - 4.7 mg/dL | [facility] | | | PLASMA | | | LABORATORY | | | (LAB) | | | SERVICES, | | | | | | CORE | | + + + + + + | POTASSIUM | No Hemo | | [facility] | | | CMNT | | | LABORATORY | | | | | | SERVICES, | | | | | | CORE | | + + + + + + | ANION GAP | 7 | 4 - 11 mmol/L | [facility] | | | | | | LABORATORY | | | | | | SERVICES, | | | | | | CORE | | + + + + + + | ANION | 9 | 4 - 11 mmol/L | [facility] | | | GAP(ALB | | | LABORATORY | | | CORRECTED) | | | SERVICES, | | | | | | CORE | | + + + + + + + + | Specimen | + + | Blood - Blood | | (substance) | + + + + + | Narrative | Performed At | + + + | GFR is estimated using the MDRD equation recommended by the | [facility] | | National Kidney Disease Education Program. Estimated GFR | LABORATORY | | Interpretive Information: <60 mL/min/1.73 sq m | SERVICES, CORE | | Chronic Kidney Disease <15 mL/min/1.73 sq m | | | Kidney Failure Estimated GFR greater that 60 mL/min/1.73 sq m is of | | | limited clinical value. The MDRD equation is not valid in the | | | following situations: - Patients under 18 years of age - Severe | | | malnutrition or obesity - Vegetarian diet - Rapidly changing kidney | | | function - Amputees, paraplegics, or other muscle-wasting diseses | | + + + + + + + + | Performing | Address | City/State/Zipcode | Phone Number | | Organization | | | | + + + + + | [facility] | [address] | [place] [address] | | | SERVICES, CORE | [address] | | | + + + + + CAPILLARY BLOOD GLUCOSE (NO CHG), POC (09/30/2017 11:21 PM PDT) + +---------+ + + + | Component | Value | Ref Range | Performed | Pathologist | | | | | At | Signature | + +---------+ + + + | BLOOD | 144 (H) | 70 - 99 mg/dL | [facility] - | | | GLUCOSE, | | | [facility] | | | POC | | | [facility] | | | | | | OF CARE | | | | | | TESTS | | + +---------+ + + + + + | Specimen | + + | | + + + + + + + | Performing | Address | City/State/Zipcode | Phone Number | | Organization | | | | + + + + + | [facility] | [address] | [place], [place] | | | [facility] | [address] | [address] | | | TESTS | | | | + + + + + CAPILLARY BLOOD GLUCOSE (NO CHG), POC (09/30/2017 6:01 PM PDT) + +---------+ + + + | Component | Value | Ref Range | Performed | Pathologist | | | | | At | Signature | + +---------+ + + + | BLOOD | 102 (H) | 70 - 99 mg/dL | [facility] - | | | GLUCOSE, | | | [facility] | | | POC | | | [facility] | | | | | | OF CARE | | | | | | TESTS | | + +---------+ + + + + + | Specimen | + + | | + + + + + + + | Performing | Address | City/State/Zipcode | Phone Number | | Organization | | | | + + + + + | [facility] | [address] | [place], [place] | | | [facility] | [address] | [address] | | | TESTS | | | | + + + + + 12 LEAD ECG (09/30/2017 3:17 PM PDT) + + + + + + | Component | Value | Ref Range | Performed | Pathologist | | | | | At | Signature | + + + + + + | VENTRICULAR | 65 | bpm | [facility] | | | RATE | | | OF | | | | | | CARDIOLOGY | | + + + + + + | ATRIAL RATE | 65 | ms | [facility] | | | | | | OF | | | | | | CARDIOLOGY | | + + + + + + | P-R | 128 | ms | [facility] | | | INTERVAL | | | OF | | | | | | CARDIOLOGY | | + + + + + + | P AXIS | 62 | deg | [facility] | | | | | | OF | | | | | | CARDIOLOGY | | + + + + + + | QRS | 137 | ms | [facility] | | | DURATION | | | OF | | | | | | CARDIOLOGY | | + + + + + + | QT | 462 | ms | [facility] | | | | | | OF | | | | | | CARDIOLOGY | | + + + + + + | QTC-HALIMA | 481 | ms | [facility] | | | | | | OF | | | | | | CARDIOLOGY | | + + + + + + | R AXIS | 86 | deg | [facility] | | | | | | OF | | | | | | CARDIOLOGY | | + + + + + + | T AXIS | 28 | deg | [facility] | | | | | | OF | | | | | | CARDIOLOGY | | + + + + + + | ECG | Sinus rhythm | | [facility] | | | IMPRESSION | | | OF | | | | | | CARDIOLOGY | | + + + + + + | ECG | Right bundle branch | | [facility] | | | IMPRESSION | block | | OF | | | | | | CARDIOLOGY | | + + + + + + | ECG | ST elevation, consider | | [facility] | | | IMPRESSION | lateral injury- ABNORMAL | | OF | | | | ECG - | | CARDIOLOGY | | + + + + + + | ECG | Electronically signed | | [facility] | | | IMPRESSION | by: AJAY DE LOS SANTOS | | OF | | | | 10-01-2017 19:45:35 | | CARDIOLOGY | | + + + + + + + + | Specimen | + + | | + + + + + | Narrative | Performed At | + + + | | | + + + + + + + + | Performing | Address | City/State/Zipcode | Phone Number | | Organization | | | | + + + + + | [facility] | [phone] | [place], [place] | | | CARDIOLOGY | [address] | [address] | | + + + + + CT HEAD WO CONTRAST (09/30/2017 1:02 PM PDT) + + | Specimen | + + | | + + + + + | Narrative | Performed At | + + + | EXAM: CT HEAD WITHOUT CONTRAST HISTORY: altered mental status - | [facility] | | known head injury COMPARISON: MRI brain 09/25/2017 | RADIOLOGY VOICE | | TECHNIQUE: CT of the head without intravenous contrast. FINDINGS: | RECOGNITION 2 | | BRAIN: Postprocedural changes from right lima-cranioplasty | | | subjacent extra-axial fluid collection overlying the right | | | frontoparietal lobes measuring 11 mm in thickness, unchanged from | | | 09/25/2017 MRI. Right inferior temporal encephalomalacia is again seen. | | | Trace 2 mm leftward midline shift is stable. The ventricles are | | | stable in size and morphology without hydrocephalus. No evidence of | | | acute ischemia or hemorrhage. SOFT TISSUES: Postsurgical changes | | | from right lima-cranioplasty SKULL AND SKULL BASE: Postsurgical | | | changes from right lima-cranioplasty Mastoids and middle ears are | | | unremarkable. FACE/ORBITS: Chronic nasal bone deformity. PARANASAL | | | SINUSES: Visualized portions are unremarkable. IMPRESSION: | | | Stable postprocedural changes from right lima-cranioplasty and | | | subjacent extra-axial fluid collection resulting in unchanged 2 mm | | | leftward midline shift. I have personally reviewed the images and, | | | if necessary, edited the report. I agree with the report as now | | | presented. Final signature: Ceci Phillips MD 09/30/2017 | | | 1:27 PM Preliminary: Ajay Stout MD Dictation initiated: | | | Ajay Stout MD 09/30/2017 1:19 PM | | + + + + + | Procedure Note | + + | Service Account, Radiant Res In Interface - 09/30/2017 1:28 PM PDT EXAM: CT HEAD | | WITHOUT CONTRAST HISTORY: altered mental status - known head injury COMPARISON: MRI | | brain 09/25/2017 TECHNIQUE: CT of the head without intravenous contrast. FINDINGS: BRAIN: | | Postprocedural changes from right lima-cranioplasty subjacent extra-axial fluid | | collection overlying the right frontoparietal lobes measuring 11 mm in thickness, | | unchanged from 09/25/2017 MRI. Right inferior temporal encephalomalacia is again seen. | | Trace 2 mm leftward midline shift is stable. The ventricles are stable in size and | | morphology without hydrocephalus. No evidence of acute ischemia or hemorrhage. SOFT | | TISSUES: Postsurgical changes from right lima-cranioplasty SKULL AND SKULL BASE: | | Postsurgical changes from right lima-cranioplasty Mastoids and middle ears are | | unremarkable.FACE/ORBITS: Chronic nasal bone deformity.PARANASAL SINUSES: Visualized | | portions are unremarkable. IMPRESSION: Stable postprocedural changes from right | | lima-cranioplasty and subjacent extra-axial fluid collection resulting in unchanged 2 mm | | leftward midline shift. I have personally reviewed the images and, if necessary, edited | | the report. I agree with the report as now presented. Final signature: Ceci Cleary | | MD Alan 09/30/2017 1:27 PM Preliminary: Ajay Stout MD Dictation initiated: | | Ajay Stout MD 09/30/2017 1:19 PM | | | |IMPRESSION: | | | |Stable postprocedural changes from right lima-cranioplasty and subjacent extra-axial fluid collection resulting in unchanged 2 mm leftward midline shift. | | | |I have personally reviewed the images and, if necessary, edited the report. I agree with th e report as now presented. | | | |Final signature: Ceci Phillips MD 09/30/2017 1:27 PM | |Preliminary: Ajay Stout MD | |Dictation initiated: Ajay Stout MD 09/30/2017 1:19 PM | + + + +---------+ + + | Performing | Address | City/State/Zipcode | Phone Number | | Organization | | | | + +---------+ + + | [facility] | | | | | [facility] | | | | + +---------+ + + CAPILLARY BLOOD GLUCOSE (NO CHG), POC (09/30/2017 12:29 PM PDT) + +---------+ + + + | Component | Value | Ref Range | Performed | Pathologist | | | | | At | Signature | + +---------+ + + + | BLOOD | 105 (H) | 70 - 99 mg/dL | [facility] | | | GLUCOSE, | | | [facility] | | | POC | | | [facility] | | | | | | OF CARE | | | | | | TESTS | | + +---------+ + + + + + | Specimen | + + | | + + + + + + + | Performing | Address | City/State/Zipcode | Phone Number | | Organization | | | | + + + + + | [facility] | [address] | [place], [place] | | | [facility] | [address] | [address] | | | TESTS | | | | + + + + + CAPILLARY BLOOD GLUCOSE (NO CHG), POC (09/30/2017 6:26 AM PDT) + +---------+ + + + | Component | Value | Ref Range | Performed | Pathologist | | | | | At | Signature | + +---------+ + + + | BLOOD | 151 (H) | 70 - 99 mg/dL | [facility] | | | [facility], | | | [facility] | | | POC | | | [facility] | | | | | | OF CARE | | | | | | TESTS | | + +---------+ + + + + + | Specimen | + + | | + + + + + + + | Performing | Address | City/State/Zipcode | Phone Number | | Organization | | | | + + + + + | [facility] | [address] | [place], [place] | | | [place] GENAO | [facility] | [address] | | | TESTS | | | | + + + + + CBC (HEMOGRAM) ONLY (09/30/2017 4:43 AM PDT) + + + + + + | Component | Value | Ref Range | Performed | Pathologist | | | | | At | Signature | + + + + + + | WHITE CELL | 9.17 | 3.50 - 10.80 | [facility] | | | COUNT | | K/cu mm | LABORATORY | | | | | | SERVICES, | | | | | | CORE | | + + + + + + | RED CELL | 4.11 (L) | 4.50 - 6.00 | [facility] | | | COUNT | | M/cu mm | LABORATORY | | | | | | SERVICES, | | | | | | CORE | | + + + + + + | HEMOGLOBIN | 12.0 (L) | 13.5 - 17.5 | [facility] | | | | | g/dL | LABORATORY | | | | | | SERVICES, | | | | | | CORE | | + + + + + + | HEMATOCRIT | 37.8 (L) | 41.0 - 53.0 % | [facility] | | | | | | LABORATORY | | | | | | SERVICES, | | | | | | CORE | | + + + + + + | MCV | 92.0 | 80.0 - 100.0 fL | [facility] | | | | | | LABORATORY | | | | | | SERVICES, | | | | | | CORE | | + + + + + + | MCHC | 31.7 (L) | 32.0 - 36.0 | [facility] | | | | | g/dL | LABORATORY | | | | | | SERVICES, | | | | | | CORE | | + + + + + + | RDW SD | 59.0 (H) | 35.1 - 46.3 fL | [facility] | | | | | | LABORATORY | | | | | | SERVICES, | | | | | | CORE | | + + + + + + | PLATELET | 199 | 150 - 400 K/cu | [facility] | | | COUNT | | mm | LABORATORY | | | | | | SERVICES, | | | | | | CORE | | + + + + + + | MPV | 9.1 (L) | 9.7 - 12.3 fL | [facility] | | | | | | LABORATORY | | | | | | SERVICES, | | | | | | CORE | | + + + + + + | NRBC% | 0.0 | 0.0 - 0.3 % | [facility] | | | | | | LABORATORY | | | | | | SERVICES, | | | | | | CORE | | + + + + + + | NRBC# | 0.00 | 0.00 - 0.02 | [facility] | | | | | K/cu mm | LABORATORY | | | | | | SERVICES, | | | | | | CORE | | + + + + + + + + | Specimen | + + | Blood - Blood | | (substance) | + + + + + | Narrative | Performed At | + + + | New reference ranges for MCV, MCHC, PLT, IG% and IG# effective | [facility] | | 09/05/2017 | LABORATORY | | | SERVICES, CORE | + + + + + + + + | Performing | Address | City/State/Zipcode | Phone Number | | Organization | | | | + + + + + | [facility] | [address] | [place] [address] | | | SERVICES, CORE | [address] | | | + + + + + MAGNESIUM, PLASMA (09/30/2017 4:43 AM PDT) + +-------+ + + + | Component | Value | Ref Range | Performed | Pathologist | | | | | At | Signature | + +-------+ + + + | MAGNESIUM,P | 2.0 | 1.6 - 2.6 mg/dL | [facility] | | | LASMA | | | LABORATORY | | | | | | SERVICES, | | | | | | CORE | | + +-------+ + + + + + | Specimen | + + | Blood - Blood | | (substance) | + + + + + | Narrative | Performed At | + + + | Reference range change effective 12/11/16. | [facility] | | | LABORATORY | | | [place]AL[facility] [place] | + + + + + + + + | Performing | Address | City/State/Zipcode | Phone Number | | Organization | | | | + + + + + | [facility] | [address] | [place] [address] | | | SERVICES, NATAL[place] | [address] | | | + + + + + RENAL FUNCTION SET (NA,K,CL,CO2,BUN,CREAT,GLUC,CA,PHOS,ALB ) (09/30/2017 4:43 AM PDT) + + + + + + | Component | Value | Ref Range | Performed | Pathologist | | | | | At | Signature | + + + + + + | GLUCOSE, | 124 (H) | 70 - 99 mg/dL | [facility] | | | PLASMA | | | LABORATORY | | | (LAB) | | | SERVICES, | | | | | | CORE | | + + + + + + | BUN, PLASMA | 17 | 6 - 20 mg/dL | [facility] | | | (LAB) | | | LABORATORY | | | | | | SERVICES, | | | | | | CORE | | + + + + + + | CREATININE | 0.48 (L) | 0.70 - 1.30 | [facility] | | | PLASMA | | mg/dL | LABORATORY | | | (LAB) | | | SERVICES, | | | | | | CORE | | + + + + + + | EGFR | >60 | >60 mL/min | [facility] | | | - | | | LABORATORY | | | SUDANESE | | | SERVICES, | | | | | | CORE | | + + + + + + | EGFR NON | >60 | >60 mL/min | [facility] | | | -KAYE | | | LABORATORY | | | RICAN | | | SERVICES, | | | | | | CORE | | + + + + + + | SODIUM, | 140 | 136 - 145 | [facility] | | | PLASMA | | mmol/L | LABORATORY | | | (LAB) | | | SERVICES, | | | | | | CORE | | + + + + + + | POTASSIUM, | 3.5 | 3.4 - 5.0 | [facility] | | | PLASMA | | mmol/L | LABORATORY | | | (LAB) | | | SERVICES, | | | | | | CORE | | + + + + + + | CHLORIDE, | 105 | 97 - 108 mmol/L | [facility] | | | PLASMA | | | LABORATORY | | | (LAB) | | | SERVICES, | | | | | | CORE | | + + + + + + | TOTAL CO2, | 27 | 21 - 32 mmol/L | [facility] | | | PLASMA | | | LABORATORY | | | (LAB) | | | SERVICES, | | | | | | CORE | | + + + + + + | CALCIUM, | 8.5 (L) | 8.6 - 10.2 | [facility] | | | PLASMA | | mg/dL | LABORATORY | | | (LAB) | | | SERVICES, | | | | | | CORE | | + + + + + + | CALCIUM(ALB | 9.3 | 8.6 - 10.2 | [facility] | | | CORRECTED) | | mg/dL | LABORATORY | | | | | | SERVICES, | | | | | | CORE | | + + + + + + | ALBUMIN, | 3.0 (L) | 3.5 - 4.7 g/dL | [facility] | | | PLASMA | | | LABORATORY | | | (LAB) | | | SERVICES, | | | | | | CORE | | + + + + + + | PHOSPHORUS, | 4.0 | 2.4 - 4.7 mg/dL | [facility] | | | PLASMA | | | LABORATORY | | | (LAB) | | | SERVICES, | | | | | | CORE | | + + + + + + | POTASSIUM | No Hemo | | [facility] | | | CMNT | | | LABORATORY | | | | | | SERVICES, | | | | | | CORE | | + + + + + + | ANION GAP | 8 | 4 - 11 mmol/L | [facility] | | | | | | LABORATORY | | | | | | SERVICES, | | | | | | CORE | | + + + + + + | ANION | 10 | 4 - 11 mmol/L | [facility] | | | GAP(ALB | | | LABORATORY | | | CORRECTED) | | | SERVICES, | | | | | | CORE | | + + + + + + + + | Specimen | + + | Blood - Blood | | (substance) | + + + + + | Narrative | Performed At | + + + | GFR is estimated using the MDRD equation recommended by the | [facility] | | National Kidney Disease Education Program. Estimated GFR | LABORATORY | | Interpretive Information: <60 mL/min/1.73 sq m | SERVICES, CORE | | Chronic Kidney Disease <15 mL/min/1.73 sq m | | | Kidney Failure Estimated GFR greater that 60 mL/min/1.73 sq m is of | | | limited clinical value. The MDRD equation is not valid in the | | | following situations: - Patients under 18 years of age - Severe | | | malnutrition or obesity - Vegetarian diet - Rapidly changing kidney | | | function - Amputees, paraplegics, or other muscle-wasting diseses | | + + + + + + + + | Performing | Address | City/State/Zipcode | Phone Number | | Organization | | | | + + + + + | [facility] | [address] | [place] [address] | | | SERVICES, CORE | [address] | | | + + + + + CAPILLARY BLOOD GLUCOSE (NO CHG), POC (09/29/2017 10:18 PM PDT) + +---------+ + + + | Component | Value | Ref Range | Performed | Pathologist | | | | | At | Signature | + +---------+ + + + | BLOOD | 125 (H) | 70 - 99 mg/dL | [facility] | | | GLUCOSE, | | | [facility] | | | POC | | | [place] | | | | | | OF CARE | | | | | | TESTS | | + +---------+ + + + + + | Specimen | + + | | + + + + + + + | Performing | Address | City/State/Zipcode | Phone Number | | Organization | | | | + + + + + | [facility] | [id number] | [place], [place] | | | [facility] OF [facility] | [facility] | [address] | | | TESTS | | | | + + + + + CAPILLARY BLOOD GLUCOSE (NO CHG), POC (09/29/2017 5:53 PM PDT) + +---------+ + + + | Component | Value | Ref Range | Performed | Pathologist | | | | | At | Signature | + +---------+ + + + | BLOOD | 124 (H) | 70 - 99 mg/dL | [facility] | | | [facility], | | | [facility] | | | POC | | | [facility] | | | | | | OF CARE | | | | | | TESTS | | + +---------+ + + + + + | Specimen | + + | | + + + + + + + | Performing | Address | City/State/Zipcode | Phone Number | | Organization | | | | + + + + + | [facility] | [address] | [place], [place] | | | [facility] | [address] | [address] | | | TESTS | | | | + + + + + CAPILLARY BLOOD GLUCOSE (NO CHG), POC (09/29/2017 12:46 PM PDT) + +---------+ + + + | Component | Value | Ref Range | Performed | Pathologist | | | | | At | Signature | + +---------+ + + + | BLOOD | 117 (H) | 70 - 99 mg/dL | [facility] | | | GLUCOSE, | | | [facility] | | | POC | | | [facility] | | | | | | OF CARE | | | | | | TESTS | | + +---------+ + + + + + | Specimen | + + | | + + + + + + + | Performing | Address | City/State/Zipcode | Phone Number | | Organization | | | | + + + + + | [facility] | [address] | [place], [place] | | | JOHN GENAO | [facility] | [phone] | | | TESTS | | | | + + + + + 12 LEAD ECG (09/29/2017 11:17 AM PDT) + + + + + + | Component | Value | Ref Range | Performed | Pathologist | | | | | At | Signature | + + + + + + | VENTRICULAR | 63 | bpm | [facility] | | | RATE | | | OF | | | | | | CARDIOLOGY | | + + + + + + | ATRIAL RATE | 63 | ms | [facility] | | | | | | OF | | | | | | CARDIOLOGY | | + + + + + + | P-R | 136 | ms | [facility] | | | INTERVAL | | | OF | | | | | | CARDIOLOGY | | + + + + + + | P AXIS | 57 | deg | [facility] | | | | | | OF | | | | | | CARDIOLOGY | | + + + + + + | QRS | 133 | ms | [facility] | | | DURATION | | | OF | | | | | | CARDIOLOGY | | + + + + + + | QT | 432 | ms | [facility] | | | | | | OF | | | | | | CARDIOLOGY | | + + + + + + | QTC-HALIMA | 442 | ms | [facility] | | | | | | OF | | | | | | CARDIOLOGY | | + + + + + + | R AXIS | 86 | deg | [facility] | | | | | | OF | | | | | | CARDIOLOGY | | + + + + + + | T AXIS | 32 | deg | [facility] | | | | | | OF | | | | | | CARDIOLOGY | | + + + + + + | ECG | Sinus rhythm | | [facility] | | | IMPRESSION | | | OF | | | | | | CARDIOLOGY | | + + + + + + | ECG | Right bundle branch | | [facility] | | | IMPRESSION | block | | OF | | | | | | CARDIOLOGY | | + + + + + + | ECG | ST elevation, consider | | [facility] | | | IMPRESSION | anterolateral injury- | | OF | | | | ABNORMAL ECG - | | CARDIOLOGY | | + + + + + + | ECG | Electronically signed | | [facility] | | | IMPRESSION | by: JULIO VIZCAINO | | OF | | | | 06-04-2018 08:36:54 | | CARDIOLOGY | | + + + + + + + + | Specimen | + + | | + + + + + | Narrative | Performed At | + + + | | | + + + + + + + + | Performing | Address | City/State/Zipcode | Phone Number | | Organization | | | | + + + + + | [facility] | [address] | [place], [place] | | | CARDIOLOGY | [address] | [address] | | + + + + + CAPILLARY BLOOD GLUCOSE (NO CHG), POC (09/29/2017 6:19 AM PDT) + +---------+ + + + | Component | Value | Ref Range | Performed | Pathologist | | | | | At | Signature | + +---------+ + + + | BLOOD | 145 (H) | 70 - 99 mg/dL | [facility] - | | | GLUCOSE, | | | [facility] | | | POC | | | [facility] | | | | | | OF CARE | | | | | | TESTS | | + +---------+ + + + + + | Specimen | + + | | + + + + + + + | Performing | Address | City/State/Zipcode | Phone Number | | Organization | | | | + + + + + | [facility] | [address] | [place], [place] | | | [facility] | [address] | [address] | | | TESTS | | | | + + + + + MAGNESIUM, PLASMA (09/29/2017 4:30 AM PDT) + +-------+ + + + | Component | Value | Ref Range | Performed | Pathologist | | | | | At | Signature | + +-------+ + + + | MAGNESIUM,P | 2.1 | 1.6 - 2.6 mg/dL | [facility] | | | LASMA | | | LABORATORY | | | | | | SERVICES, | | | | | | CORE | | + +-------+ + + + + + | Specimen | + + | Blood - Blood | | (substance) | + + + + + | Narrative | Performed At | + + + | Reference range change effective 12/11/16. | [facility] | | | LABORATORY | | | SERVICES, CORE | + + + + + + + + | Performing | Address | City/State/Zipcode | Phone Number | | Organization | | | | + + + + + | [facility] | [address] | [place] [address] | | | SERVICES, CORE | [address] | | | + + + + + RENAL FUNCTION SET (NA,K,CL,CO2,BUN,CREAT,GLUC,CA,PHOS,ALB ) (09/29/2017 4:30 AM PDT) + + + + + + | Component | Value | Ref Range | Performed | Pathologist | | | | | At | Signature | + + + + + + | GLUCOSE, | 136 (H) | 70 - 99 mg/dL | [facility] | | | PLASMA | | | LABORATORY | | | (LAB) | | | SERVICES, | | | | | | CORE | | + + + + + + | BUN, PLASMA | 15 | 6 - 20 mg/dL | [facility] | | | (LAB) | | | LABORATORY | | | | | | SERVICES, | | | | | | CORE | | + + + + + + | CREATININE | 0.47 (L) | 0.70 - 1.30 | [facility] | | | PLASMA | | mg/dL | LABORATORY | | | (LAB) | | | SERVICES, | | | | | | CORE | | + + + + + + | EGFR | >60 | >60 mL/min | [facility] | | | - | | | LABORATORY | | | SUDANESE | | | SERVICES, | | | | | | CORE | | + + + + + + | EGFR NON | >60 | >60 mL/min | [facility] | | | -KAYE | | | LABORATORY | | | RICAN | | | SERVICES, | | | | | | CORE | | + + + + + + | SODIUM, | 139 | 136 - 145 | [facility] | | | PLASMA | | mmol/L | LABORATORY | | | (LAB) | | | SERVICES, | | | | | | CORE | | + + + + + + | POTASSIUM, | 3.8 | 3.4 - 5.0 | [facility] | | | PLASMA | | mmol/L | LABORATORY | | | (LAB) | | | SERVICES, | | | | | | CORE | | + + + + + + | CHLORIDE, | 104 | 97 - 108 mmol/L | [facility] | | | PLASMA | | | LABORATORY | | | (LAB) | | | SERVICES, | | | | | | CORE | | + + + + + + | TOTAL CO2, | 26 | 21 - 32 mmol/L | [facility] | | | PLASMA | | | LABORATORY | | | (LAB) | | | SERVICES, | | | | | | CORE | | + + + + + + | CALCIUM, | 8.6 | 8.6 - 10.2 | [facility] | | | PLASMA | | mg/dL | LABORATORY | | | (LAB) | | | SERVICES, | | | | | | CORE | | + + + + + + | CALCIUM(ALB | 9.4 | 8.6 - 10.2 | [facility] | | | CORRECTED) | | mg/dL | LABORATORY | | | | | | SERVICES, | | | | | | CORE | | + + + + + + | ALBUMIN, | 3.0 (L) | 3.5 - 4.7 g/dL | [facility] | | | PLASMA | | | LABORATORY | | | (LAB) | | | SERVICES, | | | | | | CORE | | + + + + + + | PHOSPHORUS, | 4.1 | 2.4 - 4.7 mg/dL | [facility] | | | PLASMA | | | LABORATORY | | | (LAB) | | | SERVICES, | | | | | | CORE | | + + + + + + | POTASSIUM | No Hemo | | [facility] | | | CMNT | | | LABORATORY | | | | | | SERVICES, | | | | | | CORE | | + + + + + + | ANION GAP | 9 | 4 - 11 mmol/L | [facility] | | | | | | LABORATORY | | | | | | SERVICES, | | | | | | CORE | | + + + + + + | ANION | 11 | 4 - 11 mmol/L | [facility] | | | GAP(ALB | | | LABORATORY | | | CORRECTED) | | | SERVICES, | | | | | | CORE | | + + + + + + + + | Specimen | + + | Blood - Blood | | (substance) | + + + + + | Narrative | Performed At | + + + | GFR is estimated using the MDRD equation recommended by the | [facility] | | National Kidney Disease Education Program. Estimated GFR | LABORATORY | | Interpretive Information: <60 mL/min/1.73 sq m | SERVICES, CORE | | Chronic Kidney Disease <15 mL/min/1.73 sq m | | | Kidney Failure Estimated GFR greater that 60 mL/min/1.73 sq m is of | | | limited clinical value. The MDRD equation is not valid in the | | | following situations: - Patients under 18 years of age - Severe | | | malnutrition or obesity - Vegetarian diet - Rapidly changing kidney | | | function - Amputees, paraplegics, or other muscle-wasting diseses | | + + + + + + + + | Performing | Address | City/State/Zipcode | Phone Number | | Organization | | | | + + + + + | [facility] | [address] | [place] [address] | | | SERVICES, CORE | [address] | | | + + + + + CBC (HEMOGRAM) ONLY (09/29/2017 4:16 AM PDT) + + + + + + | Component | Value | Ref Range | Performed | Pathologist | | | | | At | Signature | + + + + + + | WHITE CELL | 9.04 | 3.50 - 10.80 | [facility] | | | COUNT | | K/cu mm | LABORATORY | | | | | | SERVICES, | | | | | | CORE | | + + + + + + | RED CELL | 4.19 (L) | 4.50 - 6.00 | [facility] | | | COUNT | | M/cu mm | LABORATORY | | | | | | SERVICES, | | | | | | CORE | | + + + + + + | HEMOGLOBIN | 12.2 (L) | 13.5 - 17.5 | [facility] | | | | | g/dL | LABORATORY | | | | | | SERVICES, | | | | | | CORE | | + + + + + + | HEMATOCRIT | 38.3 (L) | 41.0 - 53.0 % | [facility] | | | | | | LABORATORY | | | | | | SERVICES, | | | | | | CORE | | + + + + + + | MCV | 91.4 | 80.0 - 100.0 fL | [facility] | | | | | | LABORATORY | | | | | | SERVICES, | | | | | | CORE | | + + + + + + | MCHC | 31.9 (L) | 32.0 - 36.0 | [facility] | | | | | g/dL | LABORATORY | | | | | | SERVICES, | | | | | | CORE | | + + + + + + | RDW SD | 58.4 (H) | 35.1 - 46.3 fL | [facility] | | | | | | LABORATORY | | | | | | SERVICES, | | | | | | CORE | | + + + + + + | PLATELET | 205 | 150 - 400 K/cu | [facility] | | | COUNT | | mm | LABORATORY | | | | | | SERVICES, | | | | | | CORE | | + + + + + + | MPV | 9.4 (L) | 9.7 - 12.3 fL | [facility] | | | | | | LABORATORY | | | | | | SERVICES, | | | | | | CORE | | + + + + + + | NRBC% | 0.0 | 0.0 - 0.3 % | [facility] | | | | | | LABORATORY | | | | | | SERVICES, | | | | | | CORE | | + + + + + + | NRBC# | 0.00 | 0.00 - 0.02 | [facility] | | | | | K/cu mm | LABORATORY | | | | | | SERVICES, | | | | | | CORE | | + + + + + + + + | Specimen | + + | Blood - Blood | | (substance) | + + + + + | Narrative | Performed At | + + + | New reference ranges for MCV, MCHC, PLT, IG% and IG# effective | [facility] | | 09/05/2017 | LABORATORY | | | SERVICES, CORE | + + + + + + + + | Performing | Address | City/State/Zipcode | Phone Number | | Organization | | | | + + + + + | [facility] | [address] | [place] [address] | | | SERVICES, CORE | [address] | | | + + + + + CAPILLARY BLOOD GLUCOSE (NO CHG), POC (09/29/2017 12:27 AM PDT) + +---------+ + + + | Component | Value | Ref Range | Performed | Pathologist | | | | | At | Signature | + +---------+ + + + | BLOOD | 151 (H) | 70 - 99 mg/dL | [facility] - | | | GLUCOSE, | | | [facility] | | | POC | | | [facility] | | | | | | OF CARE | | | | | | TESTS | | + +---------+ + + + + + | Specimen | + + | | + + + + + + + | Performing | Address | City/State/[place] Service Unitcode | Phone Number | | Organization | | | | + + + + + | [facility] | [address] | [place], [place] | | | GLORIA GENAO OF [facility] | [address] | [address] | | | TESTS | | | | + + + + + CAPILLARY BLOOD GLUCOSE (NO CHG), POC (09/28/2017 5:26 PM PDT) + +---------+ + + + | Component | Value | Ref Range | Performed | Pathologist | | | | | At | Signature | + +---------+ + + + | BLOOD | 112 (H) | 70 - 99 mg/dL | [facility] | | | GLUCOSE, | | | [facility] | | | POC | | | [place] [place] | | | | | | OF CARE | | | | | | TESTS | | + +---------+ + + + + + | Specimen | + + | | + + + + + + + | Performing | Address | City/State/Zipcode | Phone Number | | Organization | | | | + + + + + | [facility] | [address] | [place], [place] | | | [facility] | [facility] | [address] | | | TESTS | | | | + + + + + CAPILLARY BLOOD GLUCOSE (NO CHG), POC (09/28/2017 1:24 PM PDT) + +---------+ + + + | Component | Value | Ref Range | Performed | Pathologist | | | | | At | Signature | + +---------+ + + + | BLOOD | 100 (H) | 70 - 99 mg/dL | [facility] - | | | GLUCOSE, | | | [facility] | | | POC | | | [facility] | | | | | | OF CARE | | | | | | TESTS | | + +---------+ + + + + + | Specimen | + + | | + + + + + + + | Performing | Address | City/State/Zipcode | Phone Number | | Organization | | | | + + + + + | [facility] | [address] | [place], [place] | | | [facility] | [address] | [address] | | | TESTS | | | | + + + + + 12 LEAD ECG (09/28/2017 10:25 AM PDT) + + + + + + | Component | Value | Ref Range | Performed | Pathologist | | | | | At | Signature | + + + + + + | VENTRICULAR | 68 | bpm | [facility] | | | RATE | | | OF | | | | | | CARDIOLOGY | | + + + + + + | ATRIAL RATE | 68 | ms | [facility] | | | | | | OF | | | | | | CARDIOLOGY | | + + + + + + | P-R | 136 | ms | [facility] | | | INTERVAL | | | OF | | | | | | CARDIOLOGY | | + + + + + + | P AXIS | 52 | deg | [facility] | | | | | | OF | | | | | | CARDIOLOGY | | + + + + + + | QRS | 131 | ms | [facility] | | | DURATION | | | OF | | | | | | CARDIOLOGY | | + + + + + + | QT | 428 | ms | [facility] | | | | | | OF | | | | | | CARDIOLOGY | | + + + + + + | QTC-HALIMA | 454 | ms | [facility] | | | | | | OF | | | | | | CARDIOLOGY | | + + + + + + | R AXIS | 85 | deg | [facility] | | | | | | OF | | | | | | CARDIOLOGY | | + + + + + + | T AXIS | 43 | deg | [facility] | | | | | | OF | | | | | | CARDIOLOGY | | + + + + + + | ECG | Sinus rhythm | | [facility] | | | IMPRESSION | | | OF | | | | | | CARDIOLOGY | | + + + + + + | ECG | Right bundle branch | | [facility] | | | IMPRESSION | block | | OF | | | | | | CARDIOLOGY | | + + + + + + | ECG | ST elevation, consider | | [facility] | | | IMPRESSION | lateral injury- ABNORMAL | | OF | | | | ECG - | | CARDIOLOGY | | + + + + + + | ECG | Electronically signed | | [facility] | | | IMPRESSION | by: PAULO CAVAZOS | | OF | | | | 09-28-2017 14:19:57 | | CARDIOLOGY | | + + + + + + + + | Specimen | + + | | + + + + + | Narrative | Performed At | + + + | | | + + + + + + + + | Performing | Address | City/State/Zipcode | Phone Number | | Organization | | | | + + + + + | [facility] | [address] | [place], [place] | | | CARDIOLOGY | [address] | [address] | | + + + + + CAPILLARY BLOOD GLUCOSE (NO CHG), POC (09/28/2017 6:47 AM PDT) + +---------+ + + + | Component | Value | Ref Range | Performed | Pathologist | | | | | At | Signature | + +---------+ + + + | BLOOD | 147 (H) | 70 - 99 mg/dL | [facility] - | | | GLUCOSE, | | | [facility] | | | POC | | | [facility] | | | | | | [facility]ARE | | | | | | TESTS | | + +---------+ + + + + + | Specimen | + + | | + + + + + + + | Performing | Address | City/State/Zipcode | Phone Number | | Organization | | | | + + + + + | [facility] | [address] | [place], [place] | | | [facility] | [address] | [address] | | | TESTS | | | | + + + + + CBC (HEMOGRAM) ONLY (09/28/2017 4:58 AM PDT) + + + + + + | Component | Value | Ref Range | Performed | Pathologist | | | | | At | Signature | + + + + + + | WHITE CELL | 9.21 | 3.50 - 10.80 | [facility] | | | COUNT | | K/cu mm | LABORATORY | | | | | | SERVICES, | | | | | | CORE | | + + + + + + | RED CELL | 4.06 (L) | 4.50 - 6.00 | [facility] | | | COUNT | | M/cu mm | LABORATORY | | | | | | SERVICES, | | | | | | CORE | | + + + + + + | HEMOGLOBIN | 11.9 (L) | 13.5 - 17.5 | [facility] | | | | | g/dL | LABORATORY | | | | | | SERVICES, | | | | | | CORE | | + + + + + + | HEMATOCRIT | 37.1 (L) | 41.0 - 53.0 % | [facility] | | | | | | LABORATORY | | | | | | SERVICES, | | | | | | CORE | | + + + + + + | MCV | 91.4 | 80.0 - 100.0 fL | [facility] | | | | | | LABORATORY | | | | | | SERVICES, | | | | | | CORE | | + + + + + + | MCHC | 32.1 | 32.0 - 36.0 | [facility] | | | | | g/dL | LABORATORY | | | | | | SERVICES, | | | | | | CORE | | + + + + + + | RDW SD | 58.6 (H) | 35.1 - 46.3 fL | [facility] | | | | | | LABORATORY | | | | | | SERVICES, | | | | | | CORE | | + + + + + + | PLATELET | 210 | 150 - 400 K/cu | [facility] | | | COUNT | | mm | LABORATORY | | | | | | SERVICES, | | | | | | CORE | | + + + + + + | MPV | 9.2 (L) | 9.7 - 12.3 fL | [facility] | | | | | | LABORATORY | | | | | | SERVICES, | | | | | | CORE | | + + + + + + | NRBC% | 0.0 | 0.0 - 0.3 % | [facility] | | | | | | LABORATORY | | | | | | SERVICES, | | | | | | CORE | | + + + + + + | NRBC# | 0.00 | 0.00 - 0.02 | [facility] | | | | | K/cu mm | LABORATORY | | | | | | SERVICES, | | | | | | CORE | | + + + + + + + + | Specimen | + + | Blood - Blood | | (substance) | + + + + + | Narrative | Performed At | + + + | New reference ranges for MCV, MCHC, PLT, IG% and IG# effective | [facility] | | 09/05/2017 | LABORATORY | | | SERVICES, CORE | + + + + + + + + | Performing | Address | City/State/Zipcode | Phone Number | | Organization | | | | + + + + + | [facility] | [phone] | [place] [address] | | | SERVICES, CORE | [address] | | | + + + + + MAGNESIUM, PLASMA (09/28/2017 4:58 AM PDT) + +-------+ + + + | Component | Value | Ref Range | Performed | Pathologist | | | | | At | Signature | + +-------+ + + + | MAGNESIUM,P | 2.1 | 1.6 - 2.6 mg/dL | [facility] | | | LASMA | | | LABORATORY | | | | | | SERVICES, | | | | | | CORE | | + +-------+ + + + + + | Specimen | + + | Blood - Blood | | (substance) | + + + + + | Narrative | Performed At | + + + | Reference range change effective 12/11/16. | [facility] | | | LABORATORY | | | SERVICES, CORE | + + + + + + + + | Performing | Address | City/State/Zipcode | Phone Number | | Organization | | | | + + + + + | [facility] | [address] | [place] [address] | | | SERVICES, CORE | [address] | | | + + + + + RENAL FUNCTION SET (NA,K,CL,CO2,BUN,CREAT,GLUC,CA,PHOS,ALB ) (09/28/2017 4:58 AM PDT) + + + + + + | Component | Value | Ref Range | Performed | Pathologist | | | | | At | Signature | + + + + + + | GLUCOSE, | 139 (H) | 70 - 99 mg/dL | [facility] | | | PLASMA | | | LABORATORY | | | (LAB) | | | SERVICES, | | | | | | CORE | | + + + + + + | BUN, PLASMA | 15 | 6 - 20 mg/dL | [facility] | | | (LAB) | | | LABORATORY | | | | | | SERVICES, | | | | | | CORE | | + + + + + + | CREATININE | 0.44 (L) | 0.70 - 1.30 | [facility] | | | PLASMA | | mg/dL | LABORATORY | | | (LAB) | | | SERVICES, | | | | | | CORE | | + + + + + + | EGFR | >60 | >60 mL/min | [facility] | | | - | | | LABORATORY | | | SUDANESE | | | SERVICES, | | | | | | CORE | | + + + + + + | EGFR NON | >60 | >60 mL/min | [facility] | | | -KAYE | | | LABORATORY | | | RICAN | | | SERVICES, | | | | | | CORE | | + + + + + + | SODIUM, | 139 | 136 - 145 | [facility] | | | PLASMA | | mmol/L | LABORATORY | | | (LAB) | | | SERVICES, | | | | | | CORE | | + + + + + + | POTASSIUM, | 3.7 | 3.4 - 5.0 | [facility] | | | PLASMA | | mmol/L | LABORATORY | | | (LAB) | | | SERVICES, | | | | | | CORE | | + + + + + + | CHLORIDE, | 106 | 97 - 108 mmol/L | [facility] | | | PLASMA | | | LABORATORY | | | (LAB) | | | SERVICES, | | | | | | CORE | | + + + + + + | TOTAL CO2, | 27 | 21 - 32 mmol/L | [facility] | | | PLASMA | | | LABORATORY | | | (LAB) | | | SERVICES, | | | | | | CORE | | + + + + + + | CALCIUM, | 8.7 | 8.6 - 10.2 | [facility] | | | PLASMA | | mg/dL | LABORATORY | | | (LAB) | | | SERVICES, | | | | | | CORE | | + + + + + + | CALCIUM(ALB | 9.5 | 8.6 - 10.2 | [facility] | | | CORRECTED) | | mg/dL | LABORATORY | | | | | | SERVICES, | | | | | | CORE | | + + + + + + | ALBUMIN, | 3.0 (L) | 3.5 - 4.7 g/dL | [facility] | | | PLASMA | | | LABORATORY | | | (LAB) | | | SERVICES, | | | | | | CORE | | + + + + + + | PHOSPHORUS, | 3.9 | 2.4 - 4.7 mg/dL | [facility] | | | PLASMA | | | LABORATORY | | | (LAB) | | | SERVICES, | | | | | | CORE | | + + + + + + | POTASSIUM | No Hemo | | [facility] | | | CMNT | | | LABORATORY | | | | | | SERVICES, | | | | | | CORE | | + + + + + + | ANION GAP | 6 | 4 - 11 mmol/L | [facility] | | | | | | LABORATORY | | | | | | SERVICES, | | | | | | CORE | | + + + + + + | ANION | 8 | 4 - 11 mmol/L | [facility] | | | GAP(ALB | | | LABORATORY | | | CORRECTED) | | | SERVICES, | | | | | | CORE | | + + + + + + + + | Specimen | + + | Blood - Blood | | (substance) | + + + + + | Narrative | Performed At | + + + | GFR is estimated using the MDRD equation recommended by the | [facility] | | National Kidney Disease Education Program. Estimated GFR | LABORATORY | | Interpretive Information: <60 mL/min/1.73 sq m | SERVICES, CORE | | Chronic Kidney Disease <15 mL/min/1.73 sq m | | | Kidney Failure Estimated GFR greater that 60 mL/min/1.73 sq m is of | | | limited clinical value. The MDRD equation is not valid in the | | | following situations: - Patients under 18 years of age - Severe | | | malnutrition or obesity - Vegetarian diet - Rapidly changing kidney | | | function - Amputees, paraplegics, or other muscle-wasting diseses | | + + + + + + + + | Performing | Address | City/State/Zipcode | Phone Number | | Organization | | | | + + + + + | [facility] | [address] | [place] [address] | | | SERVICES, CORE | [address] | | | + + + + + CAPILLARY BLOOD GLUCOSE (NO CHG), POC (09/27/2017 11:25 PM PDT) + +---------+ + + + | Component | Value | Ref Range | Performed | Pathologist | | | | | At | Signature | + +---------+ + + + | BLOOD | 115 (H) | 70 - 99 mg/dL | [facility] - | | | GLUCOSE, | | | [facility] | | | POC | | | [facility] | | | | | | OF CARE | | | | | | TESTS | | + +---------+ + + + + + | Specimen | + + | | + + + + + + + | Performing | Address | City/State/Zipcode | Phone Number | | Organization | | | | + + + + + | [facility] | [address] | [place], [place] | | | [facility] OF [facility] | [address] | [address] | | | TESTS | | | | + + + + + CAPILLARY BLOOD GLUCOSE (NO CHG), POC (09/27/2017 6:25 PM PDT) + +---------+ + + + | Component | Value | Ref Range | Performed | Pathologist | | | | | At | Signature | + +---------+ + + + | BLOOD | 100 (H) | 70 - 99 mg/dL | [facility] - | | | GLUCOSE, | | | [facility] | | | POC | | | [facility] | | | | | | OF CARE | | | | | | TESTS | | + +---------+ + + + + + | Specimen | + + | | + + + + + + + | Performing | Address | City/State/Zipcode | Phone Number | | Organization | | | | + + + + + | [facility] | [address] | [place], [place] | | | [facility] OF CARE | [address] | [address] | | | TESTS | | | | + + + + + MODIFIED BARIUM SWALLOWING (09/27/2017 1:38 PM PDT) + + | Specimen | + + | | + + + + + | Narrative | Performed At | + + + | EXAM: Modified Barium Swallow HISTORY: Traumatic brain injury. | [facility] | | Silent aspiration with clinical improvement. Repeat barium swallow to | RADIOLOGY VOICE | | assess. COMPARISONS: 09/24/2017. TECHNIQUE: Fluoroscopy | RECOGNITION 2 | | assistance provided to speech pathology for performance of modified | | | barium swallow. Fluoro Time 58 second(s) IMPRESSION: With | | | the first sip of thick liquid there was immediate silent aspiration | | | into the trachea. Large residuals in the vallecula which were poorly | | | cleared with dry swallows. Please see speech pathology report for | | | full details I have personally reviewed the images and, if | | | necessary, edited the report. I agree with the report as now | | | presented. Final signature: Julian Tinoco MD 09/27/2017 2:17 PM | | | Preliminary: Julian Tinoco MD | | + + + + + | Procedure Note | + + | Service Account, Radiant Res In Interface - 09/27/2017 2:19 PM PDT EXAM: Modified | | Barium Swallow HISTORY: Traumatic brain injury. Silent aspiration with clinical | | improvement. Repeat barium swallow to assess. COMPARISONS: 09/24/2017. TECHNIQUE: | | Fluoroscopy assistance provided to speech pathology for performance of modified barium | | swallow. Fluoro Time 58 second(s) IMPRESSION:With the first sip of thick liquid there | | was immediate silent aspiration into the trachea. Large residuals in the vallecula | | which were poorly cleared with dry swallows. Please see speech pathology report for | | full details I have personally reviewed the images and, if necessary, edited the report. | | I agree with the report as now presented. Final signature: Julian Tinoco MD 09/27/2017 | | 2:17 PM Preliminary: Julian Tinoco MD | |IMPRESSION: | |With the first sip of thick liquid there was immediate silent aspiration into the trachea. Large residuals in the vallecula which were poorly cleared with dry swallows. Please see sp eech pathology report for full details | | | |I have personally reviewed the images and, if necessary, edited the report. I agree with th e report as now presented. | | | |Final signature: Julian Tinoco MD 09/27/2017 2:17 PM | |Preliminary: Julian Tinoco MD | + + + +---------+ + + | Performing | Address | City/State/Zipcode | Phone Number | | Organization | | | | + +---------+ + + | [facility] | | | | | VOICE RECOGNITION 2 | | | | + +---------+ + + CAPILLARY BLOOD GLUCOSE (NO CHG), POC (09/27/2017 12:50 PM PDT) + +---------+ + + + | Component | Value | Ref Range | Performed | Pathologist | | | | | At | Signature | + +---------+ + + + | BLOOD | 125 (H) | 70 - 99 mg/dL | [facility] - | | | GLUCOSE, | | | [facility] | | | POC | | | [facility] | | | | | | OF CARE | | | | | | TESTS | | + +---------+ + + + + + | Specimen | + + | | + + + + + + + | Performing | Address | City/State/Zipcode | Phone Number | | Organization | | | | + + + + + | [facility] | [address] | [place], [place] | | | [facility] OF CARE | [address] | [phone] | | | TESTS | | | | + + + + + CAPILLARY BLOOD GLUCOSE (NO CHG), POC (09/27/2017 5:58 AM PDT) + +---------+ + + + | Component | Value | Ref Range | Performed | Pathologist | | | | | At | Signature | + +---------+ + + + | BLOOD | 171 (H) | 70 - 99 mg/dL | [facility] - | | | GLUCOSE, | | | [facility] | | | POC | | | [facility] | | | | | | OF CARE | | | | | | TESTS | | + +---------+ + + + + + | Specimen | + + | | + + + + + + + | Performing | Address | City/State/Zipcode | Phone Number | | Organization | | | | + + + + + | [facility] | [address] | [place], [place] | | | [facility]ARE | [address] | [address] | | | TESTS | | | | + + + + + CBC (HEMOGRAM) ONLY (09/27/2017 5:11 AM PDT) + + + + + + | Component | Value | Ref Range | Performed | Pathologist | | | | | At | Signature | + + + + + + | WHITE CELL | 7.72 | 3.50 - 10.80 | [facility] | | | COUNT | | K/cu mm | LABORATORY | | | | | | SERVICES, | | | | | | CORE | | + + + + + + | RED CELL | 3.91 (L) | 4.50 - 6.00 | [facility] | | | COUNT | | M/cu mm | LABORATORY | | | | | | SERVICES, | | | | | | CORE | | + + + + + + | HEMOGLOBIN | 11.5 (L) | 13.5 - 17.5 | [facility] | | | | | g/dL | LABORATORY | | | | | | SERVICES, | | | | | | CORE | | + + + + + + | HEMATOCRIT | 36.0 (L) | 41.0 - 53.0 % | [facility] | | | | | | LABORATORY | | | | | | SERVICES, | | | | | | CORE | | + + + + + + | MCV | 92.1 | 80.0 - 100.0 fL | [facility] | | | | | | LABORATORY | | | | | | SERVICES, | | | | | | CORE | | + + + + + + | MCHC | 31.9 (L) | 32.0 - 36.0 | [facility] | | | | | g/dL | LABORATORY | | | | | | SERVICES, | | | | | | CORE | | + + + + + + | RDW SD | 59.2 (H) | 35.1 - 46.3 fL | [facility] | | | | | | LABORATORY | | | | | | SERVICES, | | | | | | CORE | | + + + + + + | PLATELET | 191 | 150 - 400 K/cu | [facility] | | | COUNT | | mm | LABORATORY | | | | | | SERVICES, | | | | | | CORE | | + + + + + + | MPV | 8.9 (L) | 9.7 - 12.3 fL | [facility] | | | | | | LABORATORY | | | | | | SERVICES, | | | | | | CORE | | + + + + + + | NRBC% | 0.0 | 0.0 - 0.3 % | [facility] | | | | | | LABORATORY | | | | | | SERVICES, | | | | | | CORE | | + + + + + + | NRBC# | 0.00 | 0.00 - 0.02 | [facility] | | | | | K/cu mm | LABORATORY | | | | | | SERVICES, | | | | | | CORE | | + + + + + + + + | Specimen | + + | Blood - Blood | | (substance) | + + + + + | Narrative | Performed At | + + + | New reference ranges for MCV, MCHC, PLT, IG% and IG# effective | [facility] | | 09/05/2017 | LABORATORY | | | SERVICES, CORE | + + + + + + + + | Performing | Address | City/State/Zipcode | Phone Number | | Organization | | | | + + + + + | [facility] | [address] | [place] [address] | | | SERVICES, NATALEE | [address] | | | + + + + + MAGNESIUM, PLASMA (09/27/2017 5:10 AM PDT) + +-------+ + + + | Component | Value | Ref Range | Performed | Pathologist | | | | | At | Signature | + +-------+ + + + | MAGNESIUM,P | 1.9 | 1.6 - 2.6 mg/dL | [facility] | | | [facility] | | | LABORATORY | | | | | | SERVICES, | | | | | | CORE | | + +-------+ + + + + + | Specimen | + + | Blood - Blood | | (substance) | + + + + + | Narrative | Performed At | + + + | Reference range change effective 12/11/16. | [facility] | | | LABORATORY | | | SERVICES, CORE | + + + + + + + + | Performing | Address | City/State/Zipcode | Phone Number | | Organization | | | | + + + + + | [facility] | [address] | [place] [address] | | | SERVICES, CORE | [address] | | | + + + + + RENAL FUNCTION SET (NA,K,CL,CO2,BUN,CREAT,GLUC,CA,PHOS,ALB ) (09/27/2017 5:10 AM PDT) + + + + + + | Component | Value | Ref Range | Performed | Pathologist | | | | | At | Signature | + + + + + + | GLUCOSE, | 120 (H) | 70 - 99 mg/dL | [facility] | | | PLASMA | | | LABORATORY | | | (LAB) | | | SERVICES, | | | | | | CORE | | + + + + + + | BUN, PLASMA | 16 | 6 - 20 mg/dL | [facility] | | | (LAB) | | | LABORATORY | | | | | | SERVICES, | | | | | | CORE | | + + + + + + | CREATININE | 0.48 (L) | 0.70 - 1.30 | [facility] | | | PLASMA | | mg/dL | LABORATORY | | | (LAB) | | | SERVICES, | | | | | | CORE | | + + + + + + | EGFR | >60 | >60 mL/min | [facility] | | | - | | | LABORATORY | | | SUDANESE | | | SERVICES, | | | | | | CORE | | + + + + + + | EGFR NON | >60 | >60 mL/min | [facility] | | | -KAYE | | | LABORATORY | | | RICAN | | | SERVICES, | | | | | | CORE | | + + + + + + | SODIUM, | 139 | 136 - 145 | [facility] | | | PLASMA | | mmol/L | LABORATORY | | | (LAB) | | | SERVICES, | | | | | | CORE | | + + + + + + | POTASSIUM, | 3.5 | 3.4 - 5.0 | [facility] | | | PLASMA | | mmol/L | LABORATORY | | | (LAB) | | | SERVICES, | | | | | | CORE | | + + + + + + | CHLORIDE, | 104 | 97 - 108 mmol/L | [facility] | | | PLASMA | | | LABORATORY | | | (LAB) | | | SERVICES, | | | | | | CORE | | + + + + + + | TOTAL CO2, | 28 | 21 - 32 mmol/L | [facility] | | | PLASMA | | | LABORATORY | | | (LAB) | | | SERVICES, | | | | | | CORE | | + + + + + + | CALCIUM, | 8.7 | 8.6 - 10.2 | [facility] | | | PLASMA | | mg/dL | LABORATORY | | | (LAB) | | | SERVICES, | | | | | | CORE | | + + + + + + | CALCIUM(ALB | 9.7 | 8.6 - 10.2 | [facility] | | | CORRECTED) | | mg/dL | LABORATORY | | | | | | SERVICES, | | | | | | CORE | | + + + + + + | ALBUMIN, | 2.8 (L) | 3.5 - 4.7 g/dL | [facility] | | | PLASMA | | | LABORATORY | | | (LAB) | | | SERVICES, | | | | | | CORE | | + + + + + + | PHOSPHORUS, | 4.1 | 2.4 - 4.7 mg/dL | [facility] | | | PLASMA | | | LABORATORY | | | (LAB) | | | SERVICES, | | | | | | CORE | | + + + + + + | POTASSIUM | No Hemo | | [facility] | | | CMNT | | | LABORATORY | | | | | | SERVICES, | | | | | | CORE | | + + + + + + | ANION GAP | 7 | 4 - 11 mmol/L | [facility] | | | | | | LABORATORY | | | | | | SERVICES, | | | | | | CORE | | + + + + + + | ANION | 10 | 4 - 11 mmol/L | [facility] | | | GAP(ALB | | | LABORATORY | | | CORRECTED) | | | SERVICES, | | | | | | CORE | | + + + + + + + + | Specimen | + + | Blood - Blood | | (substance) | + + + + + | Narrative | Performed At | + + + | GFR is estimated using the MDRD equation recommended by the | [facility] | | National Kidney Disease Education Program. Estimated GFR | LABORATORY | | Interpretive Information: <60 mL/min/1.73 sq m | SERVICES, CORE | | Chronic Kidney Disease <15 mL/min/1.73 sq m | | | Kidney Failure Estimated GFR greater that 60 mL/min/1.73 sq m is of | | | limited clinical value. The MDRD equation is not valid in the | | | following situations: - Patients under 18 years of age - Severe | | | malnutrition or obesity - Vegetarian diet - Rapidly changing kidney | | | function - Amputees, paraplegics, or other muscle-wasting diseses | | + + + + + + + + | Performing | Address | City/State/Zipcode | Phone Number | | Organization | | | | + + + + + | [facility] | [address] | [place] [address] | | | [place] | [address] | | | + + + + + CAPILLARY BLOOD GLUCOSE (NO CHG), POC (09/27/2017 12:41 AM PDT) + +---------+ + + + | Component | Value | Ref Range | Performed | Pathologist | | | | | At | Signature | + +---------+ + + + | BLOOD | 169 (H) | 70 - 99 mg/dL | [facility] - | | | GLUCOSE, | | | [facility] | | | POC | | | [facility] | | | | | | OF CARE | | | | | | TESTS | | + +---------+ + + + + + | Specimen | + + | | + + + + + + + | Performing | Address | City/State/Zipcode | Phone Number | | Organization | | | | + + + + + | [facility] | [address] | [place], [place] | | | [facility] | [address] | [address] | | | TESTS | | | | + + + + + CAPILLARY BLOOD GLUCOSE (NO CHG), POC (09/26/2017 5:32 PM PDT) + +---------+ + + + | Component | Value | Ref Range | Performed | Pathologist | | | | | At | Signature | + +---------+ + + + | BLOOD | 130 (H) | 70 - 99 mg/dL | [facility] - | | | GLUCOSE, | | | [facility] | | | POC | | | [facility] | | | | | | OF CARE | | | | | | TESTS | | + +---------+ + + + + + | Specimen | + + | | + + + + + + + | Performing | Address | City/State/Zipcode | Phone Number | | Organization | | | | + + + + + | [facility] | [address] | [place], [place] | | | [facility] OF CARE | [address] | [address] | | | TESTS | | | | + + + + + 12 LEAD ECG (09/26/2017 1:11 PM PDT) + + + + + + | Component | Value | Ref Range | Performed | Pathologist | | | | | At | Signature | + + + + + + | VENTRICULAR | 72 | bpm | [facility] | | | RATE | | | OF | | | | | | CARDIOLOGY | | + + + + + + | ATRIAL RATE | 72 | ms | [facility] | | | | | | OF | | | | | | CARDIOLOGY | | + + + + + + | P-R | 135 | ms | [facility] | | | INTERVAL | | | OF | | | | | | CARDIOLOGY | | + + + + + + | P AXIS | 63 | deg | [facility] | | | | | | OF | | | | | | CARDIOLOGY | | + + + + + + | QRS | 135 | ms | [facility] | | | DURATION | | | OF | | | | | | CARDIOLOGY | | + + + + + + | QT | 425 | ms | [facility] | | | | | | OF | | | | | | CARDIOLOGY | | + + + + + + | QTC-BAZETT | 466 | ms | [facility] | | | | | | OF | | | | | | CARDIOLOGY | | + + + + + + | R AXIS | 88 | deg | [facility] | | | | | | OF | | | | | | CARDIOLOGY | | + + + + + + | T AXIS | 32 | deg | [facility] | | | | | | OF | | | | | | CARDIOLOGY | | + + + + + + | ECG | Sinus rhythm | | [facility] | | | IMPRESSION | | | OF | | | | | | CARDIOLOGY | | + + + + + + | ECG | Right bundle branch | | [facility] | | | IMPRESSION | block | | OF | | | | | | CARDIOLOGY | | + + + + + + | ECG | Borderline ST elevation, | | [facility] | | | IMPRESSION | lateral leads- ABNORMAL | | OF | | | | ECG - | | CARDIOLOGY | | + + + + + + | ECG | Electronically signed | | [facility] | | | IMPRESSION | by: PAULO CAVAZOS | | OF | | | | 09-26-2017 16:47:02 | | CARDIOLOGY | | + + + + + + + + | Specimen | + + | | + + + + + | Narrative | Performed At | + + + | | | + + + + + + + + | Performing | Address | City/State/Zipcode | Phone Number | | Organization | | | | + + + + + | [facility] | [address] | [place], [place] | | | CARDIOLOGY | [facility] | [phone] | | + + + + + CAPILLARY BLOOD GLUCOSE (NO CHG), POC (09/26/2017 12:37 PM PDT) + +-------+ + + + | Component | Value | Ref Range | Performed | Pathologist | | | | | At | Signature | + +-------+ + + + | BLOOD | 88 | 70 - 99 mg/dL | [facility] - | | | GLUCOSE, | | | [facility] | | | POC | | | [facility] | | | | | | OF CARE | | | | | | TESTS | | + +-------+ + + + + + | Specimen | + + | | + + + + + + + | Performing | Address | City/State/Zipcode | Phone Number | | Organization | | | | + + + + + | [facility] | [address] | [place], [place] | | | [facility] | [address] | [address] | | | TESTS | | | | + + + + + CAPILLARY BLOOD GLUCOSE (NO CHG), POC (09/26/2017 9:22 AM PDT) + +---------+ + + + | Component | Value | Ref Range | Performed | Pathologist | | | | | At | Signature | + +---------+ + + + | BLOOD | 119 (H) | 70 - 99 mg/dL | [facility] - | | | GLUCOSE, | | | [facility] | | | POC | | | [facility] | | | | | | OF CARE | | | | | | TESTS | | + +---------+ + + + + + | Specimen | + + | | + + + + + + + | Performing | Address | City/State/Zipcode | Phone Number | | Organization | | | | + + + + + | [facility] | [address] | [place], [place] | | | [facility] OF [facility] | [facility] | [address] | | | TESTS | | | | + + + + + CAPILLARY BLOOD GLUCOSE (NO CHG), POC (09/26/2017 5:54 AM PDT) + +---------+ + + + | Component | Value | Ref Range | Performed | Pathologist | | | | | At | Signature | + +---------+ + + + | BLOOD | 138 (H) | 70 - 99 mg/dL | [facility] - | | | GLUCOSE, | | | [facility] | | | POC | | | [facility] | | | | | | OF CARE | | | | | | TESTS | | + +---------+ + + + + + | Specimen | + + | | + + + + + + + | Performing | Address | City/State/Zipcode | Phone Number | | Organization | | | | + + + + + | [facility] | [address] | [place], [place] | | | [facility] | [facility] | [address] | | | TESTS | | | | + + + + + CBC (HEMOGRAM) ONLY (09/26/2017 5:53 AM PDT) + + + + + + | Component | Value | Ref Range | Performed | Pathologist | | | | | At | Signature | + + + + + + | WHITE CELL | 7.45 | 3.50 - 10.80 | [facility] | | | COUNT | | K/cu mm | LABORATORY | | | | | | SERVICES, | | | | | | CORE | | + + + + + + | RED CELL | 3.93 (L) | 4.50 - 6.00 | [facility] | | | COUNT | | M/cu mm | LABORATORY | | | | | | SERVICES, | | | | | | CORE | | + + + + + + | HEMOGLOBIN | 11.5 (L) | 13.5 - 17.5 | [facility] | | | | | g/dL | LABORATORY | | | | | | SERVICES, | | | | | | CORE | | + + + + + + | HEMATOCRIT | 36.5 (L) | 41.0 - 53.0 % | [facility] | | | | | | LABORATORY | | | | | | SERVICES, | | | | | | CORE | | + + + + + + | MCV | 92.9 | 80.0 - 100.0 fL | [facility] | | | | | | LABORATORY | | | | | | SERVICES, | | | | | | CORE | | + + + + + + | MCHC | 31.5 (L) | 32.0 - 36.0 | [facility] | | | | | g/dL | LABORATORY | | | | | | SERVICES, | | | | | | CORE | | + + + + + + | RDW SD | 60.8 (H) | 35.1 - 46.3 fL | [facility] | | | | | | LABORATORY | | | | | | SERVICES, | | | | | | CORE | | + + + + + + | PLATELET | 221 | 150 - 400 K/cu | [facility] | | | COUNT | | mm | LABORATORY | | | | | | SERVICES, | | | | | | CORE | | + + + + + + | MPV | 9.2 (L) | 9.7 - 12.3 fL | [facility] | | | | | | LABORATORY | | | | | | SERVICES, | | | | | | CORE | | + + + + + + | NRBC% | 0.0 | 0.0 - 0.3 % | [facility] | | | | | | LABORATORY | | | | | | SERVICES, | | | | | | CORE | | + + + + + + | NRBC# | 0.00 | 0.00 - 0.02 | [facility] | | | | | K/cu mm | LABORATORY | | | | | | SERVICES, | | | | | | CORE | | + + + + + + + + | Specimen | + + | Blood - Blood | | (substance) | + + + + + | Narrative | Performed At | + + + | New reference ranges for MCV, MCHC, PLT, IG% and IG# effective | [facility] | | 09/05/2017 | LABORATORY | | | SERVICES, CORE | + + + + + + + + | Performing | Address | City/State/Zipcode | Phone Number | | Organization | | | | + + + + + | [id number] | [id number] | [place] [address] | | | SERVICES, CORE | [address] | | | + + + + + MAGNESIUM, PLASMA (09/26/2017 5:53 AM PDT) + +-------+ + + + | Component | Value | Ref Range | Performed | Pathologist | | | | | At | Signature | + +-------+ + + + | MAGNESIUM,P | 2.1 | 1.6 - 2.6 mg/dL | [facility] | | | LASMA | | | LABORATORY | | | | | | SERVICES, | | | | | | CORE | | + +-------+ + + + + + | Specimen | + + | Blood - Blood | | (substance) | + + + + + | Narrative | Performed At | + + + | Reference range change effective 12/11/16. | [facility] | | | LABORATORY | | | SERVICES, CORE | + + + + + + + + | Performing | Address | City/State/Zipcode | Phone Number | | Organization | | | | + + + + + | [facility] | [address] | [place] [address] | | | SERVICES, CORE | [address] | | | + + + + + RENAL FUNCTION SET (NA,K,CL,CO2,BUN,CREAT,GLUC,CA,PHOS,ALB ) (09/26/2017 5:53 AM PDT) + + + + + + | Component | Value | Ref Range | Performed | Pathologist | | | | | At | Signature | + + + + + + | GLUCOSE, | 140 (H) | 70 - 99 mg/dL | [facility] | | | PLASMA | | | LABORATORY | | | (LAB) | | | SERVICES, | | | | | | CORE | | + + + + + + | BUN, PLASMA | 22 (H) | 6 - 20 mg/dL | [facility] | | | (LAB) | | | LABORATORY | | | | | | SERVICES, | | | | | | CORE | | + + + + + + | CREATININE | 0.47 (L) | 0.70 - 1.30 | [facility] | | | PLASMA | | mg/dL | LABORATORY | | | (LAB) | | | SERVICES, | | | | | | CORE | | + + + + + + | EGFR | >60 | >60 mL/min | [facility] | | | - | | | LABORATORY | | | [facility] | | | SERVICES, | | | | | | CORE | | + + + + + + | EGFR NON | >60 | >60 mL/min | [facility] | | | -KAYE | | | LABORATORY | | | RICAN | | | SERVICES, | | | | | | CORE | | + + + + + + | SODIUM, | 139 | 136 - 145 | [facility] | | | PLASMA | | mmol/L | LABORATORY | | | (LAB) | | | SERVICES, | | | | | | CORE | | + + + + + + | POTASSIUM, | 3.7 | 3.4 - 5.0 | [facility] | | | PLASMA | | mmol/L | LABORATORY | | | (LAB) | | | SERVICES, | | | | | | CORE | | + + + + + + | CHLORIDE, | 106 | 97 - 108 mmol/L | [facility] | | | PLASMA | | | LABORATORY | | | (LAB) | | | SERVICES, | | | | | | CORE | | + + + + + + | TOTAL CO2, | 26 | 21 - 32 mmol/L | [facility] | | | PLASMA | | | LABORATORY | | | (LAB) | | | SERVICES, | | | | | | CORE | | + + + + + + | CALCIUM, | 8.3 (L) | 8.6 - 10.2 | [facility] | | | PLASMA | | mg/dL | LABORATORY | | | (LAB) | | | SERVICES, | | | | | | CORE | | + + + + + + | CALCIUM(ALB | 9.2 | 8.6 - 10.2 | [facility] | | | CORRECTED) | | mg/dL | LABORATORY | | | | | | SERVICES, | | | | | | CORE | | + + + + + + | ALBUMIN, | 2.9 (L) | 3.5 - 4.7 g/dL | [facility] | | | PLASMA | | | LABORATORY | | | (LAB) | | | SERVICES, | | | | | | CORE | | + + + + + + | PHOSPHORUS, | 4.0 | 2.4 - 4.7 mg/dL | [facility] | | | PLASMA | | | LABORATORY | | | (LAB) | | | SERVICES, | | | | | | CORE | | + + + + + + | POTASSIUM | No Hemo | | [facility] | | | CMNT | | | LABORATORY | | | | | | SERVICES, | | | | | | CORE | | + + + + + + | ANION GAP | 7 | 4 - 11 mmol/L | [facility] | | | | | | LABORATORY | | | | | | SERVICES, | | | | | | CORE | | + + + + + + | ANION | 9 | 4 - 11 mmol/L | [facility] | | | GAP(ALB | | | LABORATORY | | | CORRECTED) | | | SERVICES, | | | | | | CORE | | + + + + + + + + | Specimen | + + | Blood - Blood | | (substance) | + + + + + | Narrative | Performed At | + + + | GFR is estimated using the MDRD equation recommended by the | [facility] | | National Kidney Disease Education Program. Estimated GFR | LABORATORY | | Interpretive Information: <60 mL/min/1.73 sq m | SERVICES, CORE | | Chronic Kidney Disease <15 mL/min/1.73 sq m | | | Kidney Failure Estimated GFR greater that 60 mL/min/1.73 sq m is of | | | limited clinical value. The MDRD equation is not valid in the | | | following situations: - Patients under 18 years of age - Severe | | | malnutrition or obesity - Vegetarian diet - Rapidly changing kidney | | | function - Amputees, paraplegics, or other muscle-wasting diseses | | + + + + + + + + | Performing | Address | City/State/Zipcode | Phone Number | | Organization | | | | + + + + + | [facility] | [address] | [place] [address] | | | SERVICES, NATALEE | [address] | | | + + + + + CAPILLARY BLOOD GLUCOSE (NO CHG), POC (09/25/2017 11:53 PM PDT) + +---------+ + + + | Component | Value | Ref Range | Performed | Pathologist | | | | | At | Signature | + +---------+ + + + | BLOOD | 151 (H) | 70 - 99 mg/dL | [facility] - | | | GLUCOSE, | | | [place] | | | POC | | | [facility] | | | | | | OF CARE | | | | | | TESTS | | + +---------+ + + + + + | Specimen | + + | | + + + + + + + | Performing | Address | City/State/Zipcode | Phone Number | | Organization | | | | + + + + + | [facility] | [address] | [place], [place] | | | [facility] OF 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 COMPARISON: 09/22/2017 CT TECHNIQUE: Multiplanar | RECOGNITION 2 | | multi-sequence MRI of the brain without and with gadolinium based | | | intravenous contrast. FINDINGS: BRAIN: There has been mild | | | interval decrease in the size of the extra-axial fluid collection | | | overlying the right cranioplasty site, which now measures 11 mm in | | | maximal thickness, previously 15 mm. This collection shows some | | | diffusion restriction, however does not show rim enhancement. There is | | | unchanged 2 mm leftward midline shift and mild mass effect on the | | | right lateral ventricle. There is an unchanged focus of | | | encephalomalacia in the right inferior temporal lobe. No new evidence | | | of hemorrhage, mass, or acute infarction. No abnormal enhancement. No | | | abnormal restricted diffusion. SOFT TISSUES AND MARROW: There is | | | an unchanged left frontal subgaleal hematoma. FACE AND ORBITS: | | | Visualized portions are unremarkable. IMPRESSION: Mild | | | interval decrease in size of the extra-axial fluid collection | | | underlying the cranioplasty site with stable, mild leftward midline | | | shift. I have personally reviewed the images and, if necessary, | | | edited the report. I agree with the report as now presented. | | | Final signature: Daniel Armijo MD 09/25/2017 12:31 PM Preliminary: | | | Dea Izaguirre MD 09/25/2017 12:11 PM | | + + + + + | Procedure Note | + + | Service Account, Radiant Res In Interface - 09/25/2017 12:32 PM PDT EXAM: MRI BRAIN | | W/WO CONTRAST HISTORY: 67-year-old man with recent right synthetic cranioplasty for TBI | | and epidural/subdural hematoma. COMPARISON: 09/22/2017 CT TECHNIQUE: Multiplanar | | multi-sequence MRI of the brain without and with gadolinium based intravenous contrast. | | FINDINGS: BRAIN: There has been mild interval decrease in the size of the extra-axial | | fluid collection overlying the right cranioplasty site, which now measures 11 mm in | | maximal thickness, previously 15 mm. This collection shows some diffusion restriction, | | however does not show rim enhancement. There is unchanged 2 mm leftward midline shift | | and mild mass effect on the right lateral ventricle. There is an unchanged focus of | | encephalomalacia in the right inferior temporal lobe. No new evidence of hemorrhage, | | mass, or acute infarction. No abnormal enhancement. No abnormal restricted diffusion. | | SOFT TISSUES AND MARROW: There is an unchanged left frontal subgaleal hematoma. FACE AND | | ORBITS: Visualized portions are unremarkable. IMPRESSION: Mild interval decrease in | | size of the extra-axial fluid collection underlying the cranioplasty site with stable, | | mild leftward midline shift. I have personally reviewed the images and, if necessary, | | edited the report. I agree with the report as now presented. Final signature: Daniel Marcano | | MD Aleksander 09/25/2017 12:31 PM Preliminary: Dae Izaguirre MD 09/25/2017 12:11 PM | | | |IMPRESSION: | | | |Mild interval decrease in size of the extra-axial fluid collection underlying the craniopla sty site with stable, mild leftward midline shift. | | | |I have personally reviewed the images and, if necessary, edited the report. I agree with th e report as now presented. | | | |Final signature: Daniel Armijo MD 09/25/2017 12:31 PM | |Preliminary: Dae Izaguirre MD 09/25/2017 12:11 PM | + + + +---------+ + + | Performing | Address | City/State/Zipcode | Phone Number | | Organization | | | | + +---------+ + + | [facility] | | | | | VOICE RECOGNITION 2 | | | | + +---------+ + + CBC (HEMOGRAM) ONLY (09/25/2017 5:36 AM PDT) + + + + + + | Component | Value | Ref Range | Performed | Pathologist | | | | | At | Signature | + + + + + + | WHITE CELL | 9.73 | 3.50 - 10.80 | [facility] | | | COUNT | | K/cu mm | LABORATORY | | | | | | SERVICES, | | | | | | CORE | | + + + + + + | RED CELL | 4.00 (L) | 4.50 - 6.00 | [facility] | | | COUNT | | M/cu mm | LABORATORY | | | | | | SERVICES, | | | | | | CORE | | + + + + + + | HEMOGLOBIN | 11.6 (L) | 13.5 - 17.5 | [facility] | | | | | g/dL | LABORATORY | | | | | | SERVICES, | | | | | | CORE | | + + + + + + | HEMATOCRIT | 37.0 (L) | 41.0 - 53.0 % | [facility] | | | | | | LABORATORY | | | | | | SERVICES, | | | | | | CORE | | + + + + + + | MCV | 92.5 | 80.0 - 100.0 fL | [facility] | | | | | | LABORATORY | | | | | | SERVICES, | | | | | | CORE | | + + + + + + | MCHC | 31.4 (L) | 32.0 - 36.0 | [facility] | | | | | g/dL | LABORATORY | | | | | | SERVICES, | | | | | | CORE | | + + + + + + | RDW SD | 60.1 (H) | 35.1 - 46.3 fL | [facility] | | | | | | LABORATORY | | | | | | SERVICES, | | | | | | CORE | | + + + + + + | PLATELET | 223 | 150 - 400 K/cu | [facility] | | | COUNT | | mm | LABORATORY | | | | | | SERVICES, | | | | | | CORE | | + + + + + + | MPV | 9.0 (L) | 9.7 - 12.3 fL | [facility] | | | | | | LABORATORY | | | | | | SERVICES, | | | | | | CORE | | + + + + + + | NRBC% | 0.0 | 0.0 - 0.3 % | [facility] | | | | | | LABORATORY | | | | | | SERVICES, | | | | | | CORE | | + + + + + + | NRBC# | 0.00 | 0.00 - 0.02 | [facility] | | | | | K/cu mm | LABORATORY | | | | | | SERVICES, | | | | | | CORE | | + + + + + + + + | Specimen | + + | Blood - Blood | | (substance) | + + + + + | Narrative | Performed At | + + + | New reference ranges for MCV, MCHC, PLT, IG% and IG# effective | [facility] | | 09/05/2017 | LABORATORY | | | SERVICES, CORE | + + + + + + + + | Performing | Address | City/State/Zipcode | Phone Number | | Organization | | | | + + + + + | [facility] | [address] | [place] [address] | | | SERVICES, CORE | [address] | | | + + + + + MAGNESIUM, PLASMA (09/25/2017 5:36 AM PDT) + +-------+ + + + | Component | Value | Ref Range | Performed | Pathologist | | | | | At | Signature | + +-------+ + + + | MAGNESIUM,P | 2.0 | 1.6 - 2.6 mg/dL | [facility] | | | LASMA | | | LABORATORY | | | | | | SERVICES, | | | | | | CORE | | + +-------+ + + + + + | Specimen | + + | Blood - Blood | | (substance) | + + + + + | Narrative | Performed At | + + + | Reference range change effective 12/11/16. | [facility] | | | LABORATORY | | | SERVICES, CORE | + + + + + + + + | Performing | Address | City/State/Zipcode | Phone Number | | Organization | | | | + + + + + | [facility] | [address] | [place] [address] | | | SERVICES, CORE | [address] | | | + + + + + RENAL FUNCTION SET (NA,K,CL,CO2,BUN,CREAT,GLUC,CA,PHOS,ALB ) (09/25/2017 5:36 AM PDT) + + + + + + | Component | Value | Ref Range | Performed | Pathologist | | | | | At | Signature | + + + + + + | GLUCOSE, | 110 (H) | 70 - 99 mg/dL | [facility] | | | PLASMA | | | LABORATORY | | | (LAB) | | | SERVICES, | | | | | | CORE | | + + + + + + | BUN, PLASMA | 20 | 6 - 20 mg/dL | [facility] | | | (LAB) | | | LABORATORY | | | | | | SERVICES, | | | | | | CORE | | + + + + + + | CREATININE | 0.47 (L) | 0.70 - 1.30 | [facility] | | | PLASMA | | mg/dL | LABORATORY | | | (LAB) | | | SERVICES, | | | | | | CORE | | + + + + + + | EGFR | >60 | >60 mL/min | [facility] | | | - | | | LABORATORY | | | SUDANESE | | | SERVICES, | | | | | | CORE | | + + + + + + | EGFR NON | >60 | >60 mL/min | [facility] | | | -AKYE | | | LABORATORY | | | RICAN | | | SERVICES, | | | | | | CORE | | + + + + + + | SODIUM, | 141 | 136 - 145 | [facility] | | | PLASMA | | mmol/L | LABORATORY | | | (LAB) | | | SERVICES, | | | | | | CORE | | + + + + + + | POTASSIUM, | 3.7 | 3.4 - 5.0 | [facility] | | | PLASMA | | mmol/L | LABORATORY | | | (LAB) | | | SERVICES, | | | | | | CORE | | + + + + + + | CHLORIDE, | 107 | 97 - 108 mmol/L | [facility] | | | PLASMA | | | LABORATORY | | | (LAB) | | | SERVICES, | | | | | | CORE | | + + + + + + | TOTAL CO2, | 27 | 21 - 32 mmol/L | [facility] | | | PLASMA | | | LABORATORY | | | (LAB) | | | SERVICES, | | | | | | CORE | | + + + + + + | CALCIUM, | 8.4 (L) | 8.6 - 10.2 | [facility] | | | PLASMA | | mg/dL | LABORATORY | | | (LAB) | | | SERVICES, | | | | | | CORE | | + + + + + + | CALCIUM(ALB | 9.3 | 8.6 - 10.2 | [facility] | | | CORRECTED) | | mg/dL | LABORATORY | | | | | | SERVICES, | | | | | | CORE | | + + + + + + | ALBUMIN, | 2.9 (L) | 3.5 - 4.7 g/dL | [facility] | | | PLASMA | | | LABORATORY | | | (LAB) | | | SERVICES, | | | | | | CORE | | + + + + + + | PHOSPHORUS, | 3.9 | 2.4 - 4.7 mg/dL | [facility] | | | PLASMA | | | LABORATORY | | | (LAB) | | | SERVICES, | | | | | | CORE | | + + + + + + | POTASSIUM | No Hemo | | [facility] | | | CMNT | | | LABORATORY | | | | | | SERVICES, | | | | | | CORE | | + + + + + + | ANION GAP | 7 | 4 - 11 mmol/L | [facility] | | | | | | LABORATORY | | | | | | SERVICES, | | | | | | CORE | | + + + + + + | ANION | 9 | 4 - 11 mmol/L | [facility] | | | GAP(ALB | | | LABORATORY | | | CORRECTED) | | | SERVICES, | | | | | | CORE | | + + + + + + + + | Specimen | + + | Blood - Blood | | (substance) | + + + + + | Narrative | Performed At | + + + | GFR is estimated using the MDRD equation recommended by the | [facility] | | National Kidney Disease Education Program. Estimated GFR | LABORATORY | | Interpretive Information: <60 mL/min/1.73 sq m | SERVICES, CORE | | Chronic Kidney Disease <15 mL/min/1.73 sq m | | | Kidney Failure Estimated GFR greater that 60 mL/min/1.73 sq m is of | | | limited clinical value. The MDRD equation is not valid in the | | | following situations: - Patients under 18 years of age - Severe | | | malnutrition or obesity - Vegetarian diet - Rapidly changing kidney | | | function - Amputees, paraplegics, or other muscle-wasting diseses | | + + + + + + + + | Performing | Address | City/State/Zipcode | Phone Number | | Organization | | | | + + + + + | [facility] | [address] | [place] [address] | | | [place] | [address] | | | + + + + + 12 LEAD ECG (09/24/2017 9:28 PM PDT) + + + + + + | Component | Value | Ref Range | Performed | Pathologist | | | | | At | Signature | + + + + + + | VENTRICULAR | 74 | bpm | [facility] | | | RATE | | | OF | | | | | | CARDIOLOGY | | + + + + + + | ATRIAL RATE | 74 | ms | [facility] | | | | | | OF | | | | | | CARDIOLOGY | | + + + + + + | P-R | 116 | ms | [facility] | | | INTERVAL | | | OF | | | | | | CARDIOLOGY | | + + + + + + | P AXIS | 28 | deg | [facility] | | | | | | OF | | | | | | CARDIOLOGY | | + + + + + + | QRS | 129 | ms | [facility] | | | DURATION | | | OF | | | | | | CARDIOLOGY | | + + + + + + | QT | 412 | ms | [facility] | | | | | | OF | | | | | | CARDIOLOGY | | + + + + + + | QTC-HALIMA | 457 | ms | [facility] | | | | | | OF | | | | | | CARDIOLOGY | | + + + + + + | R AXIS | 93 | deg | [facility] | | | | | | OF | | | | | | CARDIOLOGY | | + + + + + + | T AXIS | 36 | deg | [facility] | | | | | | OF | | | | | | CARDIOLOGY | | + + + + + + | ECG | Sinus rhythm | | [facility] | | | IMPRESSION | | | OF | | | | | | CARDIOLOGY | | + + + + + + | ECG | Right bundle branch | | [facility] | | | IMPRESSION | block | | OF | | | | | | CARDIOLOGY | | + + + + + + | ECG | Consider anterolateral | | [facility] | | | IMPRESSION | infarct, acute- ABNORMAL | | OF | | | | ECG - | | CARDIOLOGY | | + + + + + + | ECG | Electronically signed | | [facility] | | | IMPRESSION | by: GABRIELA VANN | | OF | | | | 09-25-2017 14:01:36 | | CARDIOLOGY | | + + + + + + + + | Specimen | + + | | + + + + + | Narrative | Performed At | + + + | | | + + + + + + + + | Performing | Address | City/State/Zipcode | Phone Number | | Organization | | | | + + + + + | [facility] | [address] | [place], [place] | | | CARDIOLOGY | [address] | [address] | | + + + + + MODIFIED BARIUM SWALLOWING (09/24/2017 12:50 PM PDT) + + | Specimen | + + | | + + + + + | Narrative | Performed At | + + + | EXAM: Modified Barium Swallow HISTORY: dysphagia | [facility] | | COMPARISONS: None. TECHNIQUE: Fluoroscopy assistance provided to | RADIOLOGY VOICE | | speech pathology for performance of modified barium swallow. | RECOGNITION 2 | | Fluoro Time 55 second(s) IMPRESSION: Intermittent penetration | | | and aspiration. Vallecular residue. Please see speech pathology | | | report for full details I have personally reviewed the images and, | | | if necessary, edited the report. I agree with the report as now | | | presented. Final signature: Edelmira Parsons MD 09/24/2017 2:43 | | | PM Preliminary: Edelmira Parsons MD | | + + + + + | Procedure Note | + + | Service Account, Kostas Res In Interface - 09/24/2017 2:44 PM PDT EXAM: Modified | | Barium Swallow HISTORY: dysphagia COMPARISONS: None. TECHNIQUE: Fluoroscopy assistance | | provided to speech pathology for performance of modified barium swallow. Fluoro Time | | 55 second(s) IMPRESSION:Intermittent penetration and aspiration. Vallecular residue. | | Please see speech pathology report for full details I have personally reviewed the | | images and, if necessary, edited the report. I agree with the report as now presented. | | Final signature: Edelmira Parsons MD 09/24/2017 2:43 PM Preliminary: Edelmira Parsons | | MD | | Fluoro Time 55 second(s) | | | |IMPRESSION: | |Intermittent penetration and aspiration. Vallecular residue. Please see speech pathology r eport for full details | | | |I have personally reviewed the images and, if necessary, edited the report. I agree with th e report as now presented. | | | |Final signature: Edelmira Parsons MD 09/24/2017 2:43 PM | |Preliminary: Edelmira Parsons MD | + + + +---------+ + + | Performing | Address | City/State/Zipcode | Phone Number | | Organization | | | | + +---------+ + + | [facility] | | | | | VOICE RECOGNITION 2 | | | | + +---------+ + + VASC LAB VENOUS DUPLEX LOWER EXTREMITY BILAT COMP (09/24/2017 11:57 AM PDT) + + | Specimen | + + | | + + + + + | Narrative | Performed At | + + + | Bilateral: The duplex scanner was used to examine the deep and | [facility] | | superficial veins of the right and left lower extremities. The | RADIOLOGY VASC | | veins are patent bilaterally with normal flow and responses to | US | | augmentation and compression maneuvers and no thrombus is noted. | | | Conclusions: A normal venous examination of the bilateral lower | | | extremities. No venous thrombosis was detected. I have | | | personally reviewed the images and, if necessary, edited the report. | | | I agree with the report as now presented. | | + + + + + | Procedure Note | + + | Service Account, Cloudant In Interface - 09/24/2017 4:09 PM PDT Bilateral: The | | duplex scanner was used to examine the deep and superficial veins of the right and left | | lower extremities. The veins are patent bilaterally with normal flow and responses to | | augmentation and compression maneuvers and no thrombus is noted.Conclusions: A normal | | venous examination of the bilateral lower extremities. No venous thrombosis was | | detected.I have personally reviewed the images and, if necessary, edited the report. I | | agree with the report as now presented. | | | | | |I have personally reviewed the images and, if necessary, edited the report. I agree with t he report as now presented. | + + + +---------+ + + | Performing | Address | City/State/Zipcode | Phone Number | | Organization | | | | + +---------+ + + | [facility] | | | | | VASC US | | | | + +---------+ + + MAGNESIUM, PLASMA (09/24/2017 6:30 AM PDT) + +-------+ + + + | Component | Value | Ref Range | Performed | Pathologist | | | | | At | Signature | + +-------+ + + + | MAGNESIUM,P | 2.0 | 1.6 - 2.6 mg/dL | [facility] | | | LASMA | | | LABORATORY | | | | | | SERVICES, | | | | | | CORE | | + +-------+ + + + + + | Specimen | + + | Blood - Blood | | (substance) | + + + + + | Narrative | Performed At | + + + | Reference range change effective 12/11/16. | [facility] | | | LABORATORY | | | SERVICES, CORE | + + + + + + + + | Performing | Address | City/State/Zipcode | Phone Number | | Organization | | | | + + + + + | [facility] | [address] | [place] [address] | | | SERVICES, [facility] | [address] | | | + + + + + RENAL FUNCTION SET (NA,K,CL,CO2,BUN,CREAT,GLUC,CA,PHOS,ALB ) (09/24/2017 6:30 AM PDT) + + + + + + | Component | Value | Ref Range | Performed | Pathologist | | | | | At | Signature | + + + + + + | GLUCOSE, | 97 | 70 - 99 mg/dL | [facility] | | | PLASMA | | | LABORATORY | | | (LAB) | | | SERVICES, | | | | | | CORE | | + + + + + + | BUN, PLASMA | 18 | 6 - 20 mg/dL | [facility] | | | (LAB) | | | LABORATORY | | | | | | SERVICES, | | | | | | CORE | | + + + + + + | CREATININE | 0.43 (L) | 0.70 - 1.30 | [facility] | | | PLASMA | | mg/dL | LABORATORY | | | (LAB) | | | SERVICES, | | | | | | CORE | | + + + + + + | EGFR | >60 | >60 mL/min | [facility] | | | - | | | LABORATORY | | | SUDANESE | | | SERVICES, | | | | | | CORE | | + + + + + + | EGFR NON | >60 | >60 mL/min | [facility] | | | -KAYE | | | LABORATORY | | | RICAN | | | SERVICES, | | | | | | CORE | | + + + + + + | SODIUM, | 142 | 136 - 145 | [facility] | | | PLASMA | | mmol/L | LABORATORY | | | (LAB) | | | SERVICES, | | | | | | CORE | | + + + + + + | POTASSIUM, | 4.0 | 3.4 - 5.0 | [facility] | | | PLASMA | | mmol/L | LABORATORY | | | (LAB) | | | SERVICES, | | | | | | CORE | | + + + + + + | CHLORIDE, | 108 | 97 - 108 mmol/L | [facility] | | | PLASMA | | | LABORATORY | | | (LAB) | | | SERVICES, | | | | | | CORE | | + + + + + + | TOTAL CO2, | 26 | 21 - 32 mmol/L | [facility] | | | PLASMA | | | LABORATORY | | | (LAB) | | | SERVICES, | | | | | | CORE | | + + + + + + | CALCIUM, | 8.4 (L) | 8.6 - 10.2 | [facility] | | | PLASMA | | mg/dL | LABORATORY | | | (LAB) | | | SERVICES, | | | | | | CORE | | + + + + + + | CALCIUM(ALB | 9.2 | 8.6 - 10.2 | [facility] | | | CORRECTED) | | mg/dL | LABORATORY | | | | | | SERVICES, | | | | | | CORE | | + + + + + + | ALBUMIN, | 3.0 (L) | 3.5 - 4.7 g/dL | [facility] | | | PLASMA | | | LABORATORY | | | (LAB) | | | SERVICES, | | | | | | CORE | | + + + + + + | PHOSPHORUS, | 3.5 | 2.4 - 4.7 mg/dL | [facility] | | | PLASMA | | | LABORATORY | | | (LAB) | | | SERVICES, | | | | | | CORE | | + + + + + + | POTASSIUM | No Hemo | | [facility] | | | CMNT | | | LABORATORY | | | | | | SERVICES, | | | | | | CORE | | + + + + + + | ANION GAP | 8 | 4 - 11 mmol/L | [facility] | | | | | | LABORATORY | | | | | | SERVICES, | | | | | | CORE | | + + + + + + | ANION | 10 | 4 - 11 mmol/L | [facility] | | | GAP(ALB | | | LABORATORY | | | CORRECTED) | | | SERVICES, | | | | | | CORE | | + + + + + + + + | Specimen | + + | Blood - Blood | | (substance) | + + + + + | Narrative | Performed At | + + + | GFR is estimated using the MDRD equation recommended by the | [facility] | | National Kidney Disease Education Program. Estimated GFR | LABORATORY | | Interpretive Information: <60 mL/min/1.73 sq m | SERVICES, CORE | | Chronic Kidney Disease <15 mL/min/1.73 sq m | | | Kidney Failure Estimated GFR greater that 60 mL/min/1.73 sq m is of | | | limited clinical value. The MDRD equation is not valid in the | | | following situations: - Patients under 18 years of age - Severe | | | malnutrition or obesity - Vegetarian diet - Rapidly changing kidney | | | function - Amputees, paraplegics, or other muscle-wasting diseses | | + + + + + + + + | Performing | Address | City/State/Zipcode | Phone Number | | Organization | | | | + + + + + | [facility] | [address] | [place] [address] | | | SERVICES, CORE | [address] | | | + + + + + CBC (HEMOGRAM) ONLY (09/24/2017 6:29 AM PDT) + + + + + + | Component | Value | Ref Range | Performed | Pathologist | | | | | At | Signature | + + + + + + | WHITE CELL | 9.72 | 3.50 - 10.80 | [facility] | | | COUNT | | K/cu mm | LABORATORY | | | | | | SERVICES, | | | | | | CORE | | + + + + + + | RED CELL | 4.06 (L) | 4.50 - 6.00 | [facility] | | | COUNT | | M/cu mm | LABORATORY | | | | | | SERVICES, | | | | | | CORE | | + + + + + + | HEMOGLOBIN | 11.8 (L) | 13.5 - 17.5 | [facility] | | | | | g/dL | LABORATORY | | | | | | SERVICES, | | | | | | CORE | | + + + + + + | HEMATOCRIT | 37.4 (L) | 41.0 - 53.0 % | [facility] | | | | | | LABORATORY | | | | | | SERVICES, | | | | | | CORE | | + + + + + + | MCV | 92.1 | 80.0 - 100.0 fL | [facility] | | | | | | LABORATORY | | | | | | SERVICES, | | | | | | CORE | | + + + + + + | MCHC | 31.6 (L) | 32.0 - 36.0 | [facility] | | | | | g/dL | LABORATORY | | | | | | SERVICES, | | | | | | CORE | | + + + + + + | RDW SD | 60.4 (H) | 35.1 - 46.3 fL | [facility] | | | | | | LABORATORY | | | | | | SERVICES, | | | | | | CORE | | + + + + + + | PLATELET | 223 | 150 - 400 K/cu | [facility] | | | COUNT | | mm | LABORATORY | | | | | | SERVICES, | | | | | | CORE | | + + + + + + | MPV | 8.7 (L) | 9.7 - 12.3 fL | [facility] | | | | | | LABORATORY | | | | | | SERVICES, | | | | | | CORE | | + + + + + + | NRBC% | 0.0 | 0.0 - 0.3 % | [facility] | | | | | | LABORATORY | | | | | | SERVICES, | | | | | | CORE | | + + + + + + | NRBC# | 0.00 | 0.00 - 0.02 | [facility] | | | | | K/cu mm | LABORATORY | | | | | | SERVICES, | | | | | | CORE | | + + + + + + + + | Specimen | + + | Blood - Blood | | (substance) | + + + + + | Narrative | Performed At | + + + | New reference ranges for MCV, MCHC, PLT, IG% and IG# effective | [facility] | | 09/05/2017 | LABORATORY | | | SERVICES, CORE | + + + + + + + + | Performing | Address | City/State/Zipcode | Phone Number | | Organization | | | | + + + + + | [facility] | [phone] | [place] [address] | | | SERVICES, CORE | [address] | | | + + + + + CBC (HEMOGRAM) ONLY (09/23/2017 4:04 AM PDT) + + + + + + | Component | Value | Ref Range | Performed | Pathologist | | | | | At | Signature | + + + + + + | WHITE CELL | 12.99 (H) | 3.50 - 10.80 | [facility] | | | COUNT | | K/cu mm | LABORATORY | | | | | | SERVICES, | | | | | | CORE | | + + + + + + | RED CELL | 3.85 (L) | 4.50 - 6.00 | [facility] | | | COUNT | | M/cu mm | LABORATORY | | | | | | SERVICES, | | | | | | CORE | | + + + + + + | HEMOGLOBIN | 11.2 (L) | 13.5 - 17.5 | [facility] | | | | | g/dL | LABORATORY | | | | | | SERVICES, | | | | | | CORE | | + + + + + + | HEMATOCRIT | 35.9 (L) | 41.0 - 53.0 % | [facility] | | | | | | LABORATORY | | | | | | SERVICES, | | | | | | CORE | | + + + + + + | MCV | 93.2 | 80.0 - 100.0 fL | [facility] | | | | | | LABORATORY | | | | | | SERVICES, | | | | | | CORE | | + + + + + + | MCHC | 31.2 (L) | 32.0 - 36.0 | [facility] | | | | | g/dL | LABORATORY | | | | | | SERVICES, | | | | | | CORE | | + + + + + + | RDW SD | 61.4 (H) | 35.1 - 46.3 fL | [facility] | | | | | | LABORATORY | | | | | | SERVICES, | | | | | | CORE | | + + + + + + | PLATELET | 247 | 150 - 400 K/cu | [facility] | | | COUNT | | mm | LABORATORY | | | | | | SERVICES, | | | | | | CORE | | + + + + + + | MPV | 9.0 (L) | 9.7 - 12.3 fL | [facility] | | | | | | LABORATORY | | | | | | SERVICES, | | | | | | CORE | | + + + + + + | NRBC% | 0.0 | 0.0 - 0.3 % | [facility] | | | | | | LABORATORY | | | | | | SERVICES, | | | | | | CORE | | + + + + + + | NRBC# | 0.00 | 0.00 - 0.02 | [facility] | | | | | K/cu mm | LABORATORY | | | | | | SERVICES, | | | | | | CORE | | + + + + + + + + | Specimen | + + | Blood - Blood | | (substance) | + + + + + | Narrative | Performed At | + + + | New reference ranges for MCV, MCHC, PLT, IG% and IG# effective | [facility] | | 09/05/2017 | LABORATORY | | | NATALEE [place] | + + + + + + + + | Performing | Address | City/State/Zipcode | Phone Number | | Organization | | | | + + + + + | [facility] | [address] | [place] [address] | | | NATALEE WORTHINGTON | [address] | | | + + + + + MAGNESIUM, PLASMA (09/23/2017 4:04 AM PDT) + +-------+ + + + | Component | Value | Ref Range | Performed | Pathologist | | | | | At | Signature | + +-------+ + + + | MAGNESIUM,P | 2.1 | 1.6 - 2.6 mg/dL | [facility] | | | LASMA | | | LABORATORY | | | | | | SERVICES, | | | | | | CORE | | + +-------+ + + + + + | Specimen | + + | Blood - Blood | | (substance) | + + + + + | Narrative | Performed At | + + + | Reference range change effective 12/11/16. | [facility] | | | LABORATORY | | | NATALEE [place]INGTON | + + + + + + + + | Performing | Address | City/State/Zipcode | Phone Number | | Organization | | | | + + + + + | [facility] | [address] | [place] [address] | | | NATALEE WORTHINGTON | [address] | | | + + + + + RENAL FUNCTION SET (NA,K,CL,CO2,BUN,CREAT,GLUC,CA,PHOS,ALB ) (09/23/2017 4:04 AM PDT) + + + + + + | Component | Value | Ref Range | Performed | Pathologist | | | | | At | Signature | + + + + + + | GLUCOSE, | 136 (H) | 70 - 99 mg/dL | [facility] | | | PLASMA | | | LABORATORY | | | (LAB) | | | SERVICES, | | | | | | CORE | | + + + + + + | BUN, PLASMA | 19 | 6 - 20 mg/dL | [facility] | | | (LAB) | | | LABORATORY | | | | | | SERVICES, | | | | | | CORE | | + + + + + + | CREATININE | 0.47 (L) | 0.70 - 1.30 | [facility] | | | PLASMA | | mg/dL | LABORATORY | | | (LAB) | | | SERVICES, | | | | | | CORE | | + + + + + + | EGFR | >60 | >60 mL/min | [facility] | | | - | | | LABORATORY | | | S[facility] | | | SERVICES, | | | | | | CORE | | + + + + + + | EGFR NON | >60 | >60 mL/min | [facility] | | | -KAYE | | | LABORATORY | | | RICAN | | | SERVICES, | | | | | | CORE | | + + + + + + | SODIUM, | 140 | 136 - 145 | [facility] | | | PLASMA | | mmol/L | LABORATORY | | | (LAB) | | | SERVICES, | | | | | | CORE | | + + + + + + | POTASSIUM, | 3.6 | 3.4 - 5.0 | [facility] | | | PLASMA | | mmol/L | LABORATORY | | | (LAB) | | | SERVICES, | | | | | | CORE | | + + + + + + | CHLORIDE, | 106 | 97 - 108 mmol/L | [facility] | | | PLASMA | | | LABORATORY | | | (LAB) | | | SERVICES, | | | | | | CORE | | + + + + + + | TOTAL CO2, | 27 | 21 - 32 mmol/L | [facility] | | | PLASMA | | | LABORATORY | | | (LAB) | | | SERVICES, | | | | | | CORE | | + + + + + + | CALCIUM, | 8.0 (L) | 8.6 - 10.2 | [facility] | | | PLASMA | | mg/dL | LABORATORY | | | (LAB) | | | SERVICES, | | | | | | CORE | | + + + + + + | CALCIUM(ALB | 9.0 | 8.6 - 10.2 | [facility] | | | CORRECTED) | | mg/dL | LABORATORY | | | | | | SERVICES, | | | | | | CORE | | + + + + + + | ALBUMIN, | 2.8 (L) | 3.5 - 4.7 g/dL | [facility] | | | PLASMA | | | LABORATORY | | | (LAB) | | | SERVICES, | | | | | | CORE | | + + + + + + | PHOSPHORUS, | 3.3 | 2.4 - 4.7 mg/dL | [facility] | | | PLASMA | | | LABORATORY | | | (LAB) | | | SERVICES, | | | | | | CORE | | + + + + + + | POTASSIUM | No Hemo | | [facility] | | | CMNT | | | LABORATORY | | | | | | SERVICES, | | | | | | CORE | | + + + + + + | ANION GAP | 7 | 4 - 11 mmol/L | [facility] | | | | | | LABORATORY | | | | | | SERVICES, | | | | | | CORE | | + + + + + + | ANION | 10 | 4 - 11 mmol/L | [facility] | | | GAP(ALB | | | LABORATORY | | | CORRECTED) | | | SERVICES, | | | | | | CORE | | + + + + + + + + | Specimen | + + | Blood - Blood | | (substance) | + + + + + | Narrative | Performed At | + + + | GFR is estimated using the MDRD equation recommended by the | [facility] | | National Kidney Disease Education Program. Estimated GFR | LABORATORY | | Interpretive Information: <60 mL/min/1.73 sq m | SERVICES, CORE | | Chronic Kidney Disease <15 mL/min/1.73 sq m | | | Kidney Failure Estimated GFR greater that 60 mL/min/1.73 sq m is of | | | limited clinical value. The MDRD equation is not valid in the | | | following situations: - Patients under 18 years of age - Severe | | | malnutrition or obesity - Vegetarian diet - Rapidly changing kidney | | | function - Amputees, paraplegics, or other muscle-wasting diseses | | + + + + + + + + | Performing | Address | City/State/Zipcode | Phone Number | | Organization | | | | + + + + + | [facility] | [address] | [place] [address] | | | SERVICES, CORE | [address] | | | + + + + + CAPILLARY BLOOD GLUCOSE (NO CHG), POC (09/22/2017 6:22 PM PDT) + +---------+ + + + | Component | Value | Ref Range | Performed | Pathologist | | | | | At | Signature | + +---------+ + + + | BLOOD | 109 (H) | 70 - 99 mg/dL | [facility] | | | GLUCOSE, | | | [facility] | | | POC | | | [facility] | | | | | | OF CARE | | | | | | TESTS | | + +---------+ + + + + + | Specimen | + + | | + + + + + + + | Performing | Address | City/State/Zipcode | Phone Number | | Organization | | | | + + + + + | [facility] | [address] | [place], [place] | | | [facility] | [address] | [address] | | | TESTS | | | | + + + + + CAPILLARY BLOOD GLUCOSE (NO CHG), POC (09/22/2017 1:29 PM PDT) + +---------+ + + + | Component | Value | Ref Range | Performed | Pathologist | | | | | At | Signature | + +---------+ + + + | BLOOD | 113 (H) | 70 - 99 mg/dL | [facility] - | | | GLUCOSE, | | | [facility] | | | POC | | | [facility] | | | | | | OF CARE | | | | | | TESTS | | + +---------+ + + + + + | Specimen | + + | | + + + + + + + | Performing | Address | City/State/Zipcode | Phone Number | | Organization | | | | + + + + + | [facility] | [address] | [place], [place] | | | [facility] | [address] | [address] | | | TESTS | | | | + + + + + CT HEAD WO CONTRAST (09/22/2017 12:25 PM PDT) + + | Specimen | + + | | + + + + + | Narrative | Performed At | + + + | EXAM: CT HEAD WITHOUT CONTRAST HISTORY: declining neuro exam | [facility] | | after increased SDH COMPARISON: CT 09/21/2017, 09/12/2017 | RADIOLOGY VOICE | | TECHNIQUE: CT of the head without intravenous contrast. FINDINGS: | RECOGNITION 2 | | The extra-axial fluid underlying the right cranioplasty site is | | | minimally decreased in depth, now measuring 15 mm, previously 12 mm. | | | There is stable appearance of the mild mass effect on the right | | | lateral ventricle with 2 mm leftward midline shift. There is unchanged | | | appearance of the right temporal lobe encephalomalacia. No new | | | evidence of hemorrhage, mass, or acute infarction. There is slight | | | expansion of the right frontal subgaleal hematoma. No new fractures or | | | destructive lesions. IMPRESSION: Mild decrease of the | | | extra-axial fluid collection with stable mild, leftward midline shift. | | | I have personally reviewed the images and, if necessary, edited | | | the report. I agree with the report as now presented. Final | | | signature: Navjot Orta MD 09/22/2017 4:24 PM Preliminary: Cherri Gordon | | | MD Sam | | + + + + + | Procedure Note | + + | Service Account, Radiant Res In Interface - 09/22/2017 4:25 PM PDT EXAM: CT HEAD | | WITHOUT CONTRAST HISTORY: declining neuro exam after increased SDH COMPARISON: CT | | 09/21/2017, 09/12/2017 TECHNIQUE: CT of the head without intravenous contrast. | | FINDINGS:The extra-axial fluid underlying the right cranioplasty site is minimally | | decreased in depth, now measuring 15 mm, previously 12 mm. There is stable appearance of | | the mild mass effect on the right lateral ventricle with 2 mm leftward midline shift. | | There is unchanged appearance of the right temporal lobe encephalomalacia. No new | | evidence of hemorrhage, mass, or acute infarction. There is slight expansion of the | | right frontal subgaleal hematoma. No new fractures or destructive lesions. IMPRESSION: | | Mild decrease of the extra-axial fluid collection with stable mild, leftward midline | | shift. I have personally reviewed the images and, if necessary, edited the report. I | | agree with the report as now presented. Final signature: Navjot Orta MD 09/22/2017 | | 4:24 PM Preliminary: Cherri Vargas MD | |IMPRESSION: | | | | Mild decrease of the extra-axial fluid collection with stable mild, leftward midline shift . | | | |I have personally reviewed the images and, if necessary, edited the report. I agree with th e report as now presented. | | | |Final signature: Navjot Orta MD 09/22/2017 4:24 PM | |Preliminary: Cherri Vargas MD | + + + +---------+ + + | Performing | Address | City/State/Zipcode | Phone Number | | Organization | | | | + +---------+ + + | [facility] | | | | | VOICE RECOGNITION 2 | | | | + +---------+ + + TROPONIN I, PLASMA (09/22/2017 9:52 AM PDT) + +-------+ + + + | Component | Value | Ref Range | Performed | Pathologist | | | | | At | Signature | + +-------+ + + + | TROPONIN I | <0.02 | <0.80 ng/mL | [facility] | | | | | | LABORATORY | | | | | | SERVICES, | | | | | | CORE | | + +-------+ + + + + + | Specimen | + + | Blood - Blood | | (substance) | + + + + + + + | Performing | Address | City/State/Zipcode | Phone Number | | Organization | | | | + + + + + | [facility] | [address] | [place] [address] | | | SERVICES, CORE | [address] | | | + + + + + 12 LEAD ECG (09/22/2017 9:08 AM PDT) + + + + + + | Component | Value | Ref Range | Performed | Pathologist | | | | | At | Signature | + + + + + + | VENTRICULAR | 78 | bpm | [facility] | | | RATE | | | OF | | | | | | CARDIOLOGY | | + + + + + + | ATRIAL RATE | 77 | ms | [facility] | | | | | | OF | | | | | | CARDIOLOGY | | + + + + + + | P-R | 138 | ms | [facility] | | | INTERVAL | | | OF | | | | | | CARDIOLOGY | | + + + + + + | P AXIS | 69 | deg | [facility] | | | | | | OF | | | | | | CARDIOLOGY | | + + + + + + | QRS | 124 | ms | [facility] | | | DURATION | | | OF | | | | | | CARDIOLOGY | | + + + + + + | QT | 390 | ms | [facility] | | | | | | OF | | | | | | CARDIOLOGY | | + + + + + + | QTC-BAZETT | 445 | ms | [facility] | | | | | | OF | | | | | | CARDIOLOGY | | + + + + + + | R AXIS | 86 | deg | [facility] | | | | | | OF | | | | | | CARDIOLOGY | | + + + + + + | T AXIS | 43 | deg | [facility] | | | | | | OF | | | | | | CARDIOLOGY | | + + + + + + | ECG | Sinus rhythm | | [facility] | | | IMPRESSION | | | OF | | | | | | CARDIOLOGY | | + + + + + + | ECG | Right bundle branch | | [facility] | | | IMPRESSION | block- ABNORMAL ECG - | | OF | | | | | | CARDIOLOGY | | + + + + + + | ECG | Electronically signed | | [facility] | | | IMPRESSION | by: AJAY DE LOS SANTOS | | OF | | | | 09-22-2017 09:42:44 | | CARDIOLOGY | | + + + + + + + + | Specimen | + + | | + + + + + | Narrative | Performed At | + + + | | | + + + + + + + + | Performing | Address | City/State/Zipcode | Phone Number | | Organization | | | | + + + + + | [facility] | [address] | [place], [place] | | | CARDIOLOGY | [address] | [phone] | | + + + + + CBC (HEMOGRAM) ONLY (09/22/2017 5:48 AM PDT) + + + + + + | Component | Value | Ref Range | Performed | Pathologist | | | | | At | Signature | + + + + + + | WHITE CELL | 12.49 (H) | 3.50 - 10.80 | [facility] | | | COUNT | | K/cu mm | LABORATORY | | | | | | SERVICES, | | | | | | CORE | | + + + + + + | RED CELL | 3.97 (L) | 4.50 - 6.00 | [facility] | | | COUNT | | M/cu mm | LABORATORY | | | | | | SERVICES, | | | | | | CORE | | + + + + + + | HEMOGLOBIN | 11.5 (L) | 13.5 - 17.5 | [facility] | | | | | g/dL | LABORATORY | | | | | | SERVICES, | | | | | | CORE | | + + + + + + | HEMATOCRIT | 36.9 (L) | 41.0 - 53.0 % | [facility] | | | | | | LABORATORY | | | | | | SERVICES, | | | | | | CORE | | + + + + + + | MCV | 92.9 | 80.0 - 100.0 fL | [facility] | | | | | | LABORATORY | | | | | | SERVICES, | | | | | | CORE | | + + + + + + | MCHC | 31.2 (L) | 32.0 - 36.0 | [facility] | | | | | g/dL | LABORATORY | | | | | | SERVICES, | | | | | | CORE | | + + + + + + | RDW SD | 61.1 (H) | 35.1 - 46.3 fL | [facility] | | | | | | LABORATORY | | | | | | SERVICES, | | | | | | CORE | | + + + + + + | PLATELET | 254 | 150 - 400 K/cu | [facility] | | | COUNT | | mm | LABORATORY | | | | | | SERVICES, | | | | | | CORE | | + + + + + + | MPV | 8.8 (L) | 9.7 - 12.3 fL | [facility] | | | | | | LABORATORY | | | | | | SERVICES, | | | | | | CORE | | + + + + + + | NRBC% | 0.0 | 0.0 - 0.3 % | [facility] | | | | | | LABORATORY | | | | | | SERVICES, | | | | | | CORE | | + + + + + + | NRBC# | 0.00 | 0.00 - 0.02 | [facility] | | | | | K/cu mm | LABORATORY | | | | | | SERVICES, | | | | | | CORE | | + + + + + + + + | Specimen | + + | Blood - Blood | | (substance) | + + + + + | Narrative | Performed At | + + + | New reference ranges for MCV, MCHC, PLT, IG% and IG# effective | [facility] | | 09/05/2017 | LABORATORY | | | SERVICES, CORE | + + + + + + + + | Performing | Address | City/State/Zipcode | Phone Number | | Organization | | | | + + + + + | [facility] | [address] | [place] [address] | | | SERVICES, CORE | [address] | | | + + + + + MAGNESIUM, PLASMA (09/22/2017 5:48 AM PDT) + +-------+ + + + | Component | Value | Ref Range | Performed | Pathologist | | | | | At | Signature | + +-------+ + + + | MAGNESIUM,P | 1.9 | 1.6 - 2.6 mg/dL | [facility] | | | LASMA | | | LABORATORY | | | | | | SERVICES, | | | | | | CORE | | + +-------+ + + + + + | Specimen | + + | Blood - Blood | | (substance) | + + + + + | Narrative | Performed At | + + + | Reference range change effective 12/11/16. | [facility] | | | LABORATORY | | | NATALEE [place] | + + + + + + + + | Performing | Address | City/State/Zipcode | Phone Number | | Organization | | | | + + + + + | [facility] | [address] | [place] [address] | | | SERVICES, CORE | [address] | | | + + + + + RENAL FUNCTION SET (NA,K,CL,CO2,BUN,CREAT,GLUC,CA,PHOS,ALB ) (09/22/2017 5:48 AM PDT) + + + + + + | Component | Value | Ref Range | Performed | Pathologist | | | | | At | Signature | + + + + + + | GLUCOSE, | 141 (H) | 70 - 99 mg/dL | [facility] | | | PLASMA | | | LABORATORY | | | (LAB) | | | SERVICES, | | | | | | CORE | | + + + + + + | BUN, PLASMA | 20 | 6 - 20 mg/dL | [facility] | | | (LAB) | | | LABORATORY | | | | | | SERVICES, | | | | | | CORE | | + + + + + + | CREATININE | 0.41 (L) | 0.70 - 1.30 | [facility] | | | PLASMA | | mg/dL | LABORATORY | | | (LAB) | | | SERVICES, | | | | | | CORE | | + + + + + + | EGFR | >60 | >60 mL/min | [facility] | | | - | | | LABORATORY | | | SUDAN[facility] | | | SERVICES, | | | | | | CORE | | + + + + + + | EGFR NON | >60 | >60 mL/min | [facility] | | | -KAYE | | | LABORATORY | | | RICAN | | | SERVICES, | | | | | | CORE | | + + + + + + | SODIUM, | 140 | 136 - 145 | [facility] | | | PLASMA | | mmol/L | LABORATORY | | | (LAB) | | | SERVICES, | | | | | | CORE | | + + + + + + | POTASSIUM, | 3.7 | 3.4 - 5.0 | [facility] | | | PLASMA | | mmol/L | LABORATORY | | | (LAB) | | | SERVICES, | | | | | | CORE | | + + + + + + | CHLORIDE, | 108 | 97 - 108 mmol/L | [facility] | | | PLASMA | | | LABORATORY | | | (LAB) | | | SERVICES, | | | | | | CORE | | + + + + + + | TOTAL CO2, | 27 | 21 - 32 mmol/L | [facility] | | | PLASMA | | | LABORATORY | | | (LAB) | | | SERVICES, | | | | | | CORE | | + + + + + + | CALCIUM, | 8.2 (L) | 8.6 - 10.2 | [facility] | | | PLASMA | | mg/dL | LABORATORY | | | (LAB) | | | SERVICES, | | | | | | CORE | | + + + + + + | CALCIUM(ALB | 9.0 | 8.6 - 10.2 | [facility] | | | CORRECTED) | | mg/dL | LABORATORY | | | | | | SERVICES, | | | | | | CORE | | + + + + + + | ALBUMIN, | 3.0 (L) | 3.5 - 4.7 g/dL | [facility] | | | PLASMA | | | LABORATORY | | | (LAB) | | | SERVICES, | | | | | | CORE | | + + + + + + | PHOSPHORUS, | 3.4 | 2.4 - 4.7 mg/dL | [facility] | | | PLASMA | | | LABORATORY | | | (LAB) | | | SERVICES, | | | | | | CORE | | + + + + + + | POTASSIUM | No Hemo | | [facility] | | | CMNT | | | LABORATORY | | | | | | SERVICES, | | | | | | CORE | | + + + + + + | ANION GAP | 5 | 4 - 11 mmol/L | [facility] | | | | | | LABORATORY | | | | | | SERVICES, | | | | | | CORE | | + + + + + + | ANION | 7 | 4 - 11 mmol/L | [facility] | | | GAP(ALB | | | LABORATORY | | | CORRECTED) | | | SERVICES, | | | | | | CORE | | + + + + + + + + | Specimen | + + | Blood - Blood | | (substance) | + + + + + | Narrative | Performed At | + + + | GFR is estimated using the MDRD equation recommended by the | [facility] | | National Kidney Disease Education Program. Estimated GFR | LABORATORY | | Interpretive Information: <60 mL/min/1.73 sq m | SERVICES, CORE | | Chronic Kidney Disease <15 mL/min/1.73 sq m | | | Kidney Failure Estimated GFR greater that 60 mL/min/1.73 sq m is of | | | limited clinical value. The MDRD equation is not valid in the | | | following situations: - Patients under 18 years of age - Severe | | | malnutrition or obesity - Vegetarian diet - Rapidly changing kidney | | | function - Amputees, paraplegics, or other muscle-wasting diseses | | + + + + + + + + | Performing | Address | City/State/Zipcode | Phone Number | | Organization | | | | + + + + + | [facility] | [address] | [place] [address] | | | ELIN, NATALEE | [address] | | | + + + + + CAPILLARY BLOOD GLUCOSE (NO CHG), POC (09/21/2017 10:01 PM PDT) + +---------+ + + + | Component | Value | Ref Range | Performed | Pathologist | | | | | At | Signature | + +---------+ + + + | BLOOD | 106 (H) | 70 - 99 mg/dL | [facility] - | | | GLUCOSE, | | | [facility] | | | POC | | | [facility] | | | | | | OF CARE | | | | | | TESTS | | + +---------+ + + + + + | Specimen | + + | | + + + + + + + | Performing | Address | City/State/Zipcode | Phone Number | | Organization | | | | + + + + + | [facility] | [address] | [place], [place] | | | [facility] | [address] | [phone] | | | TESTS | | | | + + + + + CT HEAD WO CONTRAST (09/21/2017 9:53 PM PDT) + + | Specimen | + + | | + + + + + | Narrative | Performed At | + + + | EXAM: CT HEAD WITHOUT CONTRAST HISTORY: new left facial droop, | [facility] | | dilated L pupil COMPARISON: 09/12/2017 TECHNIQUE: CT of the | RADIOLOGY VOICE | | head without intravenous contrast. FINDINGS: BRAIN: | RECOGNITION 2 | | Extra-axial fluid underlying the right sided cranioplasty has | | | increased in depth, now 17 mm, previously 12 mm, with associated mild | | | mass effect on the right lateral ventricle and 2 mm leftward midline | | | shift. Right temporal encephalomalacia is unchanged. No evidence of | | | new hemorrhage, mass, or acute infarction. The ventricles are normal | | | in size and morphology. SOFT TISSUES: Frontal subgaleal lipoma is | | | unchanged. SKULL AND SKULL BASE: No fractures or destructive | | | lesions. Mastoids and middle ears are unremarkable. 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 PARANASAL SINUSES: Visualized | | | portions are unremarkable. IMPRESSION: Increasing fluid | | | collection underlying the right-sided cranioplasty. I have | | | personally reviewed the images and, if necessary, edited the report. I | | | agree with the report as now presented. Final signature: Navjot | | | MD You 09/22/2017 8:40 AM Preliminary: Gurpreet Taylor MD 09/22/2017 | | | 7:42 AM | | + + + + + | Procedure Note | + + | Service Account, Radiant Res In Interface - 09/22/2017 8:41 AM PDT EXAM: CT HEAD | | WITHOUT CONTRAST HISTORY: new left facial droop, dilated L pupil COMPARISON: 09/12/2017 | | TECHNIQUE: CT of the head without intravenous contrast. FINDINGS: BRAIN: Extra-axial | | fluid underlying the right sided cranioplasty has increased in depth, now 17 mm, | | previously 12 mm, with associated mild mass effect on the right lateral ventricle and 2 | | mm leftward midline shift. Right temporal encephalomalacia is unchanged. No evidence of | | new hemorrhage, mass, or acute infarction. The ventricles are normal in size and | | morphology. SOFT TISSUES: Frontal subgaleal lipoma is unchanged.SKULL AND SKULL BASE: No | | fractures or destructive lesions. Mastoids and middle ears are | | unremarkable.FACE/ORBITS: Chronic lamina papyracea deformities.PARANASAL SINUSES: | | Visualized portions are unremarkable. IMPRESSION: Increasing fluid collection | | underlying the right-sided cranioplasty. I have personally reviewed the images and, if | | necessary, edited the report. I agree with the report as now presented. Final | | signature: Navjot Orta MD 09/22/2017 8:40 AM Preliminary: Gurpreet Taylor MD 09/22/2017 7:42 | | AM | |FACE/ORBITS: Chronic lamina papyracea deformities. | |PARANASAL SINUSES: Visualized portions are unremarkable. | | | |IMPRESSION: | | | | Increasing fluid collection underlying the right-sided cranioplasty. | | | |I have personally reviewed the images and, if necessary, edited the report. I agree with th e report as now presented. | | | |Final signature: Navjot Orta MD 09/22/2017 8:40 AM | |Preliminary: Gurpreet Taylor MD 09/22/2017 7:42 AM | + + + +---------+ + + | Performing | Address | City/State/Zipcode | Phone Number | | Organization | | | | + +---------+ + + | [facility] | | | | | VOICE RECOGNITION 2 | | | | + +---------+ + + CBC (HEMOGRAM) ONLY (09/21/2017 5:50 AM PDT) + + + + + + | Component | Value | Ref Range | Performed | Pathologist | | | | | At | Signature | + + + + + + | WHITE CELL | 10.37 | 3.50 - 10.80 | [facility] | | | COUNT | | K/cu mm | LABORATORY | | | | | | SERVICES, | | | | | | CORE | | + + + + + + | RED CELL | 4.07 (L) | 4.50 - 6.00 | [facility] | | | COUNT | | M/cu mm | LABORATORY | | | | | | SERVICES, | | | | | | CORE | | + + + + + + | HEMOGLOBIN | 11.9 (L) | 13.5 - 17.5 | [facility] | | | | | g/dL | LABORATORY | | | | | | SERVICES, | | | | | | CORE | | + + + + + + | HEMATOCRIT | 37.5 (L) | 41.0 - 53.0 % | [facility] | | | | | | LABORATORY | | | | | | SERVICES, | | | | | | CORE | | + + + + + + | MCV | 92.1 | 80.0 - 100.0 fL | [facility] | | | | | | LABORATORY | | | | | | SERVICES, | | | | | | CORE | | + + + + + + | MCHC | 31.7 (L) | 32.0 - 36.0 | [facility] | | | | | g/dL | LABORATORY | | | | | | SERVICES, | | | | | | CORE | | + + + + + + | RDW SD | 61.2 (H) | 35.1 - 46.3 fL | [facility] | | | | | | LABORATORY | | | | | | SERVICES, | | | | | | CORE | | + + + + + + | PLATELET | 290 | 150 - 400 K/cu | [facility] | | | COUNT | | mm | LABORATORY | | | | | | SERVICES, | | | | | | CORE | | + + + + + + | MPV | 8.9 (L) | 9.7 - 12.3 fL | [facility] | | | | | | LABORATORY | | | | | | SERVICES, | | | | | | CORE | | + + + + + + | NRBC% | 0.0 | 0.0 - 0.3 % | [facility] | | | | | | LABORATORY | | | | | | SERVICES, | | | | | | CORE | | + + + + + + | NRBC# | 0.00 | 0.00 - 0.02 | [facility] | | | | | K/cu mm | LABORATORY | | | | | | SERVICES, | | | | | | CORE | | + + + + + + + + | Specimen | + + | Blood - Blood | | (substance) | + + + + + | Narrative | Performed At | + + + | New reference ranges for MCV, MCHC, PLT, IG% and IG# effective | [facility] | | 09/05/2017 | LABORATORY | | | [facility] | + + + + + + + + | Performing | Address | City/State/Zipcode | Phone Number | | Organization | | | | + + + + + | [facility] | [phone] | [place] [address] | | | [address] | [place] | | | + + + + + MAGNESIUM, PLASMA (09/21/2017 5:50 AM PDT) + +-------+ + + + | Component | Value | Ref Range | Performed | Pathologist | | | | | At | Signature | + +-------+ + + + | MAGNESIUM,P | 2.1 | 1.6 - 2.6 mg/dL | [facility] | | | [facility] | | | LABORATORY | | | | | | SERVICES, | | | | | | CORE | | + +-------+ + + + + + | Specimen | + + | Blood - Blood | | (substance) | + + + + + | Narrative | Performed At | + + + | Reference range change effective 12/11/16. | [facility] | | | LABORATORY | | | SERVICES, CORE | + + + + + + + + | Performing | Address | City/State/Zipcode | Phone Number | | Organization | | | | + + + + + | [facility] | [address] | [place] [address] | | | SERVICES, CORE | [address] | | | + + + + + RENAL FUNCTION SET (NA,K,CL,CO2,BUN,CREAT,GLUC,CA,PHOS,ALB ) (09/21/2017 5:50 AM PDT) + + + + + + | Component | Value | Ref Range | Performed | Pathologist | | | | | At | Signature | + + + + + + | GLUCOSE, | 140 (H) | 70 - 99 mg/dL | [facility] | | | PLASMA | | | LABORATORY | | | (LAB) | | | SERVICES, | | | | | | CORE | | + + + + + + | BUN, PLASMA | 24 (H) | 6 - 20 mg/dL | [facility] | | | (LAB) | | | LABORATORY | | | | | | SERVICES, | | | | | | CORE | | + + + + + + | CREATININE | 0.43 (L) | 0.70 - 1.30 | [facility] | | | PLASMA | | mg/dL | LABORATORY | | | (LAB) | | | SERVICES, | | | | | | CORE | | + + + + + + | EGFR | >60 | >60 mL/min | [facility] | | | - | | | LABORATORY | | | S[facility]ANESE | | | SERVICES, | | | | | | CORE | | + + + + + + | EGFR NON | >60 | >60 mL/min | [facility] | | | -KAYE | | | LABORATORY | | | RICAN | | | SERVICES, | | | | | | CORE | | + + + + + + | SODIUM, | 139 | 136 - 145 | [facility] | | | PLASMA | | mmol/L | LABORATORY | | | (LAB) | | | SERVICES, | | | | | | CORE | | + + + + + + | POTASSIUM, | 3.8 | 3.4 - 5.0 | [facility] | | | PLASMA | | mmol/L | LABORATORY | | | (LAB) | | | SERVICES, | | | | | | CORE | | + + + + + + | CHLORIDE, | 106 | 97 - 108 mmol/L | [facility] | | | PLASMA | | | LABORATORY | | | (LAB) | | | SERVICES, | | | | | | CORE | | + + + + + + | TOTAL CO2, | 25 | 21 - 32 mmol/L | [facility] | | | PLASMA | | | LABORATORY | | | (LAB) | | | SERVICES, | | | | | | CORE | | + + + + + + | CALCIUM, | 8.3 (L) | 8.6 - 10.2 | [facility] | | | PLASMA | | mg/dL | LABORATORY | | | (LAB) | | | SERVICES, | | | | | | CORE | | + + + + + + | CALCIUM(ALB | 9.1 | 8.6 - 10.2 | [facility] | | | CORRECTED) | | mg/dL | LABORATORY | | | | | | SERVICES, | | | | | | CORE | | + + + + + + | ALBUMIN, | 3.0 (L) | 3.5 - 4.7 g/dL | [facility] | | | PLASMA | | | LABORATORY | | | (LAB) | | | SERVICES, | | | | | | CORE | | + + + + + + | PHOSPHORUS, | 3.9 | 2.4 - 4.7 mg/dL | [facility] | | | PLASMA | | | LABORATORY | | | (LAB) | | | SERVICES, | | | | | | CORE | | + + + + + + | POTASSIUM | No Hemo | | [facility] | | | CMNT | | | LABORATORY | | | | | | SERVICES, | | | | | | CORE | | + + + + + + | ANION GAP | 8 | 4 - 11 mmol/L | [facility] | | | | | | LABORATORY | | | | | | SERVICES, | | | | | | CORE | | + + + + + + | ANION | 10 | 4 - 11 mmol/L | [facility] | | | GAP(ALB | | | LABORATORY | | | CORRECTED) | | | SERVICES, | | | | | | CORE | | + + + + + + + + | Specimen | + + | Blood - Blood | | (substance) | + + + + + | Narrative | Performed At | + + + | GFR is estimated using the MDRD equation recommended by the | [facility] | | National Kidney Disease Education Program. Estimated GFR | LABORATORY | | Interpretive Information: <60 mL/min/1.73 sq m | SERVICES, CORE | | Chronic Kidney Disease <15 mL/min/1.73 sq m | | | Kidney Failure Estimated GFR greater that 60 mL/min/1.73 sq m is of | | | limited clinical value. The MDRD equation is not valid in the | | | following situations: - Patients under 18 years of age - Severe | | | malnutrition or obesity - Vegetarian diet - Rapidly changing kidney | | | function - Amputees, paraplegics, or other muscle-wasting diseses | | + + + + + + + + | Performing | Address | City/State/Zipcode | Phone Number | | Organization | | | | + + + + + | [facility] | [address] | [place] [address] | | | SERVICES, CORE | [address] | | | + + + + + X-RAY ABD LTD FEEDING TUBE EVAL (09/20/2017 7:23 PM PDT) + + | Specimen | + + | | + + + + + | Narrative | Performed At | + + + | EXAM: ABD LTD FEEDING TUBE EVAL INDICATION: DHT placement | [facility] | | TECHNIQUE: Semi-upright portable view of the upper abdomen. | RADIOLOGY VOICE | | Comparison: Same date. FINDINGS/IMPRESSION: Tip of | RECOGNITION 2 | | esophagogastric tube is located in the mid body of the stomach | | | pointing towards the pylorus... I have personally reviewed the | | | images and, if necessary, edited the report. I agree with the report | | | as now presented. Final signature: Mega Yeager MD | | | 09/20/2017 7:48 PM Preliminary: Mega Yeager MD | | + + + + + | Procedure Note | + + | Service Account, Hickies Res In Interface - 09/20/2017 7:50 PM PDT EXAM: [facility] | | FEEDING TUBE EVAL INDICATION: DHT placement TECHNIQUE: Semi-upright portable view of the | | upper abdomen. Comparison: Same date. FINDINGS/IMPRESSION: Tip of esophagogastric | | tube is located in the mid body of the stomach pointing towards the pylorus... I have | | personally reviewed the images and, if necessary, edited the report. I agree with the | | report as now presented. Final signature: Mega Yeager MD 09/20/2017 7:48 PM | | Preliminary: Mega Yeager MD | | | |FINDINGS/IMPRESSION: | | | |Tip of esophagogastric tube is located in the mid body of the stomach pointing towards the pylorus... | | | |I have personally reviewed the images and, if necessary, edited the report. I agree with th e report as now presented. | | | |Final signature: Mega Yeager MD 09/20/2017 7:48 PM | |Preliminary: Mega Yeager MD | + + + +---------+ + + | Performing | Address | City/State/Zipcode | Phone Number | | Organization | | | | + +---------+ + + | [facility] | | | | | VOICE RECOGNITION 2 | | | | + +---------+ + + X-RAY ABD LTD FEEDING TUBE EVAL (09/20/2017 5:19 PM PDT) + + | Specimen | + + | | + + + + + | Narrative | Performed At | + + + | EXAM: ABD LTD FEEDING TUBE EVAL INDICATION: DHT placement | [facility] | | TECHNIQUE: Semi-upright portable view of the upper abdomen. | RADIOLOGY VOICE | | Comparison: Same date at 1245. FINDINGS/IMPRESSION: Tip of | RECOGNITION 2 | | esophagogastric tube is located in the fundus of the stomach, coiled | | | with tip terminating and in the direction of the GE junction. | | | Nonobstructive bowel gas pattern.. I have personally reviewed | | | the images and, if necessary, edited the report. I agree with the | | | report as now presented. Final signature: Mega Yeager | | | 09/20/2017 6:24 PM Preliminary: Mega Yeager MD | | + + + + + | Procedure Note | + + | Service Adal, Radisimon Res In Interface - 09/20/2017 6:25 PM PDT EXAM: ABD LTD | | FEEDING TUBE EVAL INDICATION: DHT placement TECHNIQUE: Semi-upright portable view of the | | upper abdomen. Comparison: Same date at 1245. FINDINGS/IMPRESSION: Tip of | | esophagogastric tube is located in the fundus of the stomach, coiled with tip | | terminating and in the direction of the GE junction. Nonobstructive bowel gas pattern.. | | I have personally reviewed the images and, if necessary, edited the report. I agree | | with the report as now presented. Final signature: Mega Yeager MD 09/20/2017 | | 6:24 PM Preliminary: Mega Yeager MD | |FINDINGS/IMPRESSION: | | | |Tip of esophagogastric tube is located in the fundus of the stomach, coiled with tip termi nating and in the direction of the GE junction. Nonobstructive bowel gas pattern.. | | | | | |I have personally reviewed the images and, if necessary, edited the report. I agree with th e report as now presented. | | | |Final signature: Mega Yeager MD 09/20/2017 6:24 PM | |Preliminary: Mega Yeager MD | + + + +---------+ + + | Performing | Address | City/State/Zipcode | Phone Number | | Organization | | | | + +---------+ + + | [facility] | | | | | VOICE RECOGNITION 2 | | | | + +---------+ + + X-RAY ABD LTD FEEDING TUBE EVAL (09/20/2017 5:19 PM PDT) + + | Specimen | + + | | + + + + + | Narrative | Performed At | + + + | EXAM: ABD LTD FEEDING TUBE EVAL INDICATION: DHT placement | [facility] | | TECHNIQUE: Semi-upright portable view of the upper abdomen. | RADIOLOGY VOICE | | Comparison: Same date at 12:45 PM. FINDINGS/IMPRESSION: Tip | RECOGNITION 2 | | of esophagogastric tube is located in the fundus of the stomach, | | | coiled with tip terminating and in the direction of the GE junction. | | | Nonobstructive bowel gas pattern.. I have personally reviewed the | | | images and, if necessary, edited the report. I agree with the report | | | as now presented. Final signature: Mega Yeager MD | | | 09/20/2017 6:25 PM Preliminary: Mega Yeager MD | | + + + + + | Procedure Note | + + | Service Account, Radiant Res In Interface - 09/20/2017 6:26 PM PDT EXAM: ABD LTD | | FEEDING TUBE EVAL INDICATION: DHT placement TECHNIQUE: Semi-upright portable view of the | | upper abdomen. Comparison: Same date at 12:45 PM. FINDINGS/IMPRESSION: Tip of | | esophagogastric tube is located in the fundus of the stomach, coiled with tip | | terminating and in the direction of the GE junction. Nonobstructive bowel gas pattern.. | | I have personally reviewed the images and, if necessary, edited the report. I agree | | with the report as now presented. Final signature: Mega Yeager MD 09/20/2017 | | 6:25 PM Preliminary: Mega Yeager MD | |FINDINGS/IMPRESSION: | | | |Tip of esophagogastric tube is located in the fundus of the stomach, coiled with tip termi nating and in the direction of the GE junction. Nonobstructive bowel gas pattern.. | | | |I have personally reviewed the images and, if necessary, edited the report. I agree with th e report as now presented. | | | |Final signature: Mega Yeager MD 09/20/2017 6:25 PM | |Preliminary: Mega Yeager MD | + + + +---------+ + + | Performing | Address | City/State/Zipcode | Phone Number | | Organization | | | | + +---------+ + + | [facility] | | | | | VOICE RECOGNITION 2 | | | | + +---------+ + + X-RAY ABD LTD FEEDING TUBE EVAL (09/20/2017 1:02 PM PDT) + + | Specimen | + + | | + + + + + | Narrative | Performed At | + + + | EXAM: ABD LTD FEEDING TUBE EVAL INDICATION: confirm Dorobbie | [facility] | | placement TECHNIQUE: Semi-upright portable view of the upper | RADIOLOGY VOICE | | abdomen. Comparison: Abdomen radiograph 09/15/2017. | RECOGNITION 2 | | FINDINGS/IMPRESSION: Tip of Dobbhoff tube is located in the | | | distal stomach at the gastric antrum. Left-sided PICC line with tip at | | | the cavoatrial junction. Bilateral rib fractures again noted. I | | | have personally reviewed the images and, if necessary, edited the | | | report. I agree with the report as now presented. Final | | | signature: Espinoza Sanchez MD 09/20/2017 5:16 PM Preliminary: Em Cleary | | | MD Darryn 09/20/2017 1:12 PM | | + + + + + | Procedure Note | + + | Service Account, Hickies Res In Interface - 09/20/2017 5:17 PM PDT EXAM: ABD LTD | | FEEDING TUBE EVAL INDICATION: confirm Dobbhoff placement TECHNIQUE: Semi-upright | | portable view of the upper abdomen. Comparison: Abdomen radiograph 09/15/2017. | | FINDINGS/IMPRESSION: Tip of Dobbhoff tube is located in the distal stomach at the | | gastric antrum. Left-sided PICC line with tip at the cavoatrial junction. Bilateral rib | | fractures again noted. I have personally reviewed the images and, if necessary, edited | | the report. I agree with the report as now presented. Final signature: Espinoza Sanchez | | 09/20/2017 5:16 PM Preliminary: Em Cates MD 09/20/2017 1:12 PM | |FINDINGS/IMPRESSION: | | | |Tip of Dobbhoff tube is located in the distal stomach at the gastric antrum. Left-sided PIC C line with tip at the cavoatrial junction. Bilateral rib fractures again noted. | | | |I have personally reviewed the images and, if necessary, edited the report. I agree with th e report as now presented. | | | |Final signature: Espinoza Sanchez MD 09/20/2017 5:16 PM | |Preliminary: Em Cates MD 09/20/2017 1:12 PM | + + + +---------+ + + | Performing | Address | City/State/Zipcode | Phone Number | | Organization | | | | + +---------+ + + | [facility] | | | | | VOICE RECOGNITION 2 | | | | + +---------+ + + 12 LEAD ECG (09/20/2017 11:59 AM PDT) + + + + + + | Component | Value | Ref Range | Performed | Pathologist | | | | | At | Signature | + + + + + + | VENTRICULAR | 78 | bpm | [facility] | | | RATE | | | OF | | | | | | CARDIOLOGY | | + + + + + + | ATRIAL RATE | 78 | ms | [facility] | | | | | | OF | | | | | | CARDIOLOGY | | + + + + + + | P-R | 110 | ms | [facility] | | | INTERVAL | | | OF | | | | | | CARDIOLOGY | | + + + + + + | P AXIS | 14 | deg | [facility] | | | | | | OF | | | | | | CARDIOLOGY | | + + + + + + | QRS | 124 | ms | [facility] | | | DURATION | | | OF | | | | | | CARDIOLOGY | | + + + + + + | QT | 389 | ms | [facility] | | | | | | OF | | | | | | CARDIOLOGY | | + + + + + + | QTC-BAZETT | 444 | ms | [facility] | | | | | | OF | | | | | | CARDIOLOGY | | + + + + + + | R AXIS | 86 | deg | [facility] | | | | | | OF | | | | | | CARDIOLOGY | | + + + + + + | T AXIS | 27 | deg | [facility] | | | | | | OF | | | | | | CARDIOLOGY | | + + + + + + | ECG | Sinus rhythm | | [facility] | | | IMPRESSION | | | OF | | | | | | CARDIOLOGY | | + + + + + + | ECG | Right bundle branch | | [facility] | | | IMPRESSION | block | | OF | | | | | | CARDIOLOGY | | + + + + + + | ECG | ST elevation, consider | | [facility] | | | IMPRESSION | lateral injury- ABNORMAL | | OF | | | | ECG - | | CARDIOLOGY | | + + + + + + | ECG | Electronically signed | | [facility] | | | IMPRESSION | by: JULIO VIZCAINO | | OF | | | | 09-20-2017 18:31:42 | | CARDIOLOGY | | + + + + + + + + | Specimen | + + | | + + + + + | Narrative | Performed At | + + + | | | + + + + + + + + | Performing | Address | City/State/Zipcode | Phone Number | | Organization | | | | + + + + + | [facility] | [address] | [place], [place] | | | CARDIOLOGY | [address] | [phone] | | + + + + + CBC (HEMOGRAM) ONLY (09/20/2017 5:32 AM PDT) + + + + + + | Component | Value | Ref Range | Performed | Pathologist | | | | | At | Signature | + + + + + + | WHITE CELL | 9.56 | 3.50 - 10.80 | [facility] | | | COUNT | | K/cu mm | LABORATORY | | | | | | SERVICES, | | | | | | CORE | | + + + + + + | RED CELL | 4.24 (L) | 4.50 - 6.00 | [facility] | | | COUNT | | M/cu mm | LABORATORY | | | | | | SERVICES, | | | | | | CORE | | + + + + + + | HEMOGLOBIN | 12.5 (L) | 13.5 - 17.5 | [facility] | | | | | g/dL | LABORATORY | | | | | | SERVICES, | | | | | | CORE | | + + + + + + | HEMATOCRIT | 39.1 (L) | 41.0 - 53.0 % | [facility] | | | | | | LABORATORY | | | | | | SERVICES, | | | | | | CORE | | + + + + + + | MCV | 92.2 | 80.0 - 100.0 fL | [facility] | | | | | | LABORATORY | | | | | | SERVICES, | | | | | | CORE | | + + + + + + | MCHC | 32.0 | 32.0 - 36.0 | [facility] | | | | | g/dL | LABORATORY | | | | | | SERVICES, | | | | | | CORE | | + + + + + + | RDW SD | 61.7 (H) | 35.1 - 46.3 fL | [facility] | | | | | | LABORATORY | | | | | | SERVICES, | | | | | | CORE | | + + + + + + | PLATELET | 305 | 150 - 400 K/cu | [facility] | | | COUNT | | mm | LABORATORY | | | | | | SERVICES, | | | | | | CORE | | + + + + + + | MPV | 8.6 (L) | 9.7 - 12.3 fL | [facility] | | | | | | LABORATORY | | | | | | SERVICES, | | | | | | CORE | | + + + + + + | NRBC% | 0.0 | 0.0 - 0.3 % | [facility] | | | | | | LABORATORY | | | | | | SERVICES, | | | | | | CORE | | + + + + + + | NRBC# | 0.00 | 0.00 - 0.02 | [facility] | | | | | K/cu mm | LABORATORY | | | | | | SERVICES, | | | | | | CORE | | + + + + + + + + | Specimen | + + | Blood - Blood | | (substance) | + + + + + | Narrative | Performed At | + + + | New reference ranges for MCV, MCHC, PLT, IG% and IG# effective | [facility] | | 09/05/2017 | LABORATORY | | | SERVICES, CORE | + + + + + + + + | Performing | Address | City/State/Zipcode | Phone Number | | Organization | | | | + + + + + | [facility] | [address] | [place] [address] | | | SERVICES, CORE | [address] | | | + + + + + MAGNESIUM, PLASMA (09/20/2017 5:32 AM PDT) + +-------+ + + + | Component | Value | Ref Range | Performed | Pathologist | | | | | At | Signature | + +-------+ + + + | MAGNESIUM,P | 2.2 | 1.6 - 2.6 mg/dL | [facility] | | | L[facility] | | | LABORATORY | | | | | | ELIN, | | | | | | CORE | | + +-------+ + + + + + | Specimen | + + | Blood - Blood | | (substance) | + + + + + | Narrative | Performed At | + + + | Reference range change effective 12/11/16. | [facility] | | | LABORATORY | | | SERVICES, CORE | + + + + + + + + | Performing | Address | City/State/Zipcode | Phone Number | | Organization | | | | + + + + + | [facility] | [address] | [place] [address] | | | SERVICES, CORE | [address] | | | + + + + + RENAL FUNCTION SET (NA,K,CL,CO2,BUN,CREAT,GLUC,CA,PHOS,ALB ) (09/20/2017 5:32 AM PDT) + + + + + + | Component | Value | Ref Range | Performed | Pathologist | | | | | At | Signature | + + + + + + | GLUCOSE, | 100 (H) | 70 - 99 mg/dL | [facility] | | | PLASMA | | | LABORATORY | | | (LAB) | | | SERVICES, | | | | | | CORE | | + + + + + + | BUN, PLASMA | 18 | 6 - 20 mg/dL | [facility] | | | (LAB) | | | LABORATORY | | | | | | SERVICES, | | | | | | CORE | | + + + + + + | CREATININE | 0.43 (L) | 0.70 - 1.30 | [facility] | | | PLASMA | | mg/dL | LABORATORY | | | (LAB) | | | SERVICES, | | | | | | CORE | | + + + + + + | EGFR | >60 | >60 mL/min | [facility] | | | - | | | LABORATORY | | | S[facility]AN[facility] | | | SERVICES, | | | | | | CORE | | + + + + + + | EGFR NON | >60 | >60 mL/min | [facility] | | | -KAYE | | | LABORATORY | | | RICAN | | | SERVICES, | | | | | | CORE | | + + + + + + | SODIUM, | 139 | 136 - 145 | [facility] | | | PLASMA | | mmol/L | LABORATORY | | | (LAB) | | | SERVICES, | | | | | | CORE | | + + + + + + | POTASSIUM, | 4.2 | 3.4 - 5.0 | [facility] | | | PLASMA | | mmol/L | LABORATORY | | | (LAB) | | | SERVICES, | | | | | | CORE | | + + + + + + | CHLORIDE, | 106 | 97 - 108 mmol/L | [facility] | | | PLASMA | | | LABORATORY | | | (LAB) | | | SERVICES, | | | | | | CORE | | + + + + + + | TOTAL CO2, | 27 | 21 - 32 mmol/L | [facility] | | | PLASMA | | | LABORATORY | | | (LAB) | | | SERVICES, | | | | | | CORE | | + + + + + + | CALCIUM, | 8.5 (L) | 8.6 - 10.2 | [facility] | | | PLASMA | | mg/dL | LABORATORY | | | (LAB) | | | SERVICES, | | | | | | CORE | | + + + + + + | CALCIUM(ALB | 9.3 | 8.6 - 10.2 | [facility] | | | CORRECTED) | | mg/dL | LABORATORY | | | | | | SERVICES, | | | | | | CORE | | + + + + + + | ALBUMIN, | 3.0 (L) | 3.5 - 4.7 g/dL | [facility] | | | PLASMA | | | LABORATORY | | | (LAB) | | | SERVICES, | | | | | | CORE | | + + + + + + | PHOSPHORUS, | 3.5 | 2.4 - 4.7 mg/dL | [facility] | | | PLASMA | | | LABORATORY | | | (LAB) | | | SERVICES, | | | | | | CORE | | + + + + + + | POTASSIUM | No Hemo | | [facility] | | | CMNT | | | LABORATORY | | | | | | SERVICES, | | | | | | CORE | | + + + + + + | ANION GAP | 6 | 4 - 11 mmol/L | [facility] | | | | | | LABORATORY | | | | | | SERVICES, | | | | | | CORE | | + + + + + + | ANION | 8 | 4 - 11 mmol/L | [facility] | | | GAP(ALB | | | LABORATORY | | | CORRECTED) | | | SERVICES, | | | | | | CORE | | + + + + + + + + | Specimen | + + | Blood - Blood | | (substance) | + + + + + | Narrative | Performed At | + + + | GFR is estimated using the MDRD equation recommended by the | [facility] | | National Kidney Disease Education Program. Estimated GFR | LABORATORY | | Interpretive Information: <60 mL/min/1.73 sq m | [facility] | | Chronic Kidney Disease <15 mL/min/1.73 sq m | | | Kidney Failure Estimated GFR greater that 60 mL/min/1.73 sq m is of | | | limited clinical value. The MDRD equation is not valid in the | | | following situations: - Patients under 18 years of age - Severe | | | malnutrition or obesity - Vegetarian diet - Rapidly changing kidney | | | function - Amputees, paraplegics, or other muscle-wasting diseses | | + + + + + + + + | Performing | Address | City/State/Zipcode | Phone Number | | Organization | | | | + + + + + | [email or web address] | [address] | [place] [address] | | | [facility] | [address] | | | + + + + + CBC (HEMOGRAM) ONLY (09/19/2017 4:32 AM PDT) + + + + + + | Component | Value | Ref Range | Performed | Pathologist | | | | | At | Signature | + + + + + + | WHITE CELL | 10.91 (H) | 3.50 - 10.80 | [facility] | | | COUNT | | K/cu mm | LABORATORY | | | | | | SERVICES, | | | | | | CORE | | + + + + + + | RED CELL | 4.05 (L) | 4.50 - 6.00 | [facility] | | | COUNT | | M/cu mm | LABORATORY | | | | | | SERVICES, | | | | | | CORE | | + + + + + + | HEMOGLOBIN | 11.8 (L) | 13.5 - 17.5 | [facility] | | | | | g/dL | LABORATORY | | | | | | SERVICES, | | | | | | CORE | | + + + + + + | HEMATOCRIT | 37.0 (L) | 41.0 - 53.0 % | [facility] | | | | | | LABORATORY | | | | | | SERVICES, | | | | | | CORE | | + + + + + + | MCV | 91.4 | 80.0 - 100.0 fL | [facility] | | | | | | LABORATORY | | | | | | SERVICES, | | | | | | CORE | | + + + + + + | MCHC | 31.9 (L) | 32.0 - 36.0 | [facility] | | | | | g/dL | LABORATORY | | | | | | SERVICES, | | | | | | CORE | | + + + + + + | RDW SD | 61.4 (H) | 35.1 - 46.3 fL | [facility] | | | | | | LABORATORY | | | | | | SERVICES, | | | | | | CORE | | + + + + + + | PLATELET | 340 | 150 - 400 K/cu | [facility] | | | COUNT | | mm | LABORATORY | | | | | | SERVICES, | | | | | | CORE | | + + + + + + | MPV | 8.6 (L) | 9.7 - 12.3 fL | [facility] | | | | | | LABORATORY | | | | | | SERVICES, | | | | | | CORE | | + + + + + + | NRBC% | 0.0 | 0.0 - 0.3 % | [facility] | | | | | | LABORATORY | | | | | | SERVICES, | | | | | | CORE | | + + + + + + | NRBC# | 0.00 | 0.00 - 0.02 | [facility] | | | | | K/cu mm | LABORATORY | | | | | | SERVICES, | | | | | | CORE | | + + + + + + + + | Specimen | + + | Blood - Blood | | (substance) | + + + + + | Narrative | Performed At | + + + | New reference ranges for MCV, MCHC, PLT, IG% and IG# effective | [facility] | | 09/05/2017 | LABORATORY | | | SERVICES, CORE | + + + + + + + + | Performing | Address | City/State/Zipcode | Phone Number | | Organization | | | | + + + + + | [facility] | [address] | [place] [address] | | | SERVICES, CORE | [address] | | | + + + + + MAGNESIUM, PLASMA (09/19/2017 4:32 AM PDT) + +-------+ + + + | Component | Value | Ref Range | Performed | Pathologist | | | | | At | Signature | + +-------+ + + + | MAGNESIUM,P | 2.2 | 1.6 - 2.6 mg/dL | [facility] | | | LASMA | | | LABORATORY | | | | | | ELIN, | | | | | | CORE | | + +-------+ + + + + + | Specimen | + + | Blood - Blood | | (substance) | + + + + + | Narrative | Performed At | + + + | Reference range change effective 12/11/16. | [facility] | | | LABORATORY | | | SERVICES, CORE | + + + + + + + + | Performing | Address | City/State/Zipcode | Phone Number | | Organization | | | | + + + + + | [facility] | [id number] | [place] [address] | | | SERVICES, CORE | [address] | | | + + + + + RENAL FUNCTION SET (NA,K,CL,CO2,BUN,CREAT,GLUC,CA,PHOS,ALB ) (09/19/2017 4:32 AM PDT) + + + + + + | Component | Value | Ref Range | Performed | Pathologist | | | | | At | Signature | + + + + + + | GLUCOSE, | 118 (H) | 70 - 99 mg/dL | [facility] | | | [facility]MA | | | LABORATORY | | | (LAB) | | | SERVICES, | | | | | | CORE | | + + + + + + | BUN, PLASMA | 15 | 6 - 20 mg/dL | [facility] | | | (LAB) | | | LABORATORY | | | | | | SERVICES, | | | | | | CORE | | + + + + + + | CREATININE | 0.44 (L) | 0.70 - 1.30 | [facility] | | | PLASMA | | mg/dL | LABORATORY | | | (LAB) | | | SERVICES, | | | | | | CORE | | + + + + + + | EGFR | >60 | >60 mL/min | [facility] | | | - | | | LABORATORY | | | [facility] | | | SERVICES, | | | | | | CORE | | + + + + + + | EGFR NON | >60 | >60 mL/min | [facility] | | | -[facility] | | | LABORATORY | | | RICAN | | | SERVICES, | | | | | | CORE | | + + + + + + | SODIUM, | 138 | 136 - 145 | [facility] | | | PLASMA | | mmol/L | LABORATORY | | | (LAB) | | | SERVICES, | | | | | | CORE | | + + + + + + | POTASSIUM, | 3.9 | 3.4 - 5.0 | [facility] | | | PLASMA | | mmol/L | LABORATORY | | | (LAB) | | | SERVICES, | | | | | | CORE | | + + + + + + | CHLORIDE, | 104 | 97 - 108 mmol/L | [facility] | | | PLASMA | | | LABORATORY | | | (LAB) | | | SERVICES, | | | | | | CORE | | + + + + + + | TOTAL CO2, | 26 | 21 - 32 mmol/L | [facility] | | | PLASMA | | | LABORATORY | | | (LAB) | | | SERVICES, | | | | | | CORE | | + + + + + + | CALCIUM, | 8.1 (L) | 8.6 - 10.2 | [facility] | | | PLASMA | | mg/dL | LABORATORY | | | (LAB) | | | SERVICES, | | | | | | CORE | | + + + + + + | CALCIUM(ALB | 9.0 | 8.6 - 10.2 | [facility] | | | CORRECTED) | | mg/dL | LABORATORY | | | | | | SERVICES, | | | | | | CORE | | + + + + + + | ALBUMIN, | 2.9 (L) | 3.5 - 4.7 g/dL | [facility] | | | PLASMA | | | LABORATORY | | | (LAB) | | | SERVICES, | | | | | | CORE | | + + + + + + | PHOSPHORUS, | 3.5 | 2.4 - 4.7 mg/dL | [facility] | | | PLASMA | | | LABORATORY | | | (LAB) | | | SERVICES, | | | | | | CORE | | + + + + + + | POTASSIUM | No Hemo | | [facility] | | | CMNT | | | LABORATORY | | | | | | SERVICES, | | | | | | CORE | | + + + + + + | ANION GAP | 8 | 4 - 11 mmol/L | [facility] | | | | | | LABORATORY | | | | | | SERVICES, | | | | | | CORE | | + + + + + + | ANION | 10 | 4 - 11 mmol/L | [facility] | | | GAP(ALB | | | LABORATORY | | | CORRECTED) | | | SERVICES, | | | | | | CORE | | + + + + + + + + | Specimen | + + | Blood - Blood | | (substance) | + + + + + | Narrative | Performed At | + + + | GFR is estimated using the MDRD equation recommended by the | [facility] | | National Kidney Disease Education Program. Estimated GFR | LABORATORY | | Interpretive Information: <60 mL/min/1.73 sq m | SERVICES, CORE | | Chronic Kidney Disease <15 mL/min/1.73 sq m | | | Kidney Failure Estimated GFR greater that 60 mL/min/1.73 sq m is of | | | limited clinical value. The MDRD equation is not valid in the | | | following situations: - Patients under 18 years of age - Severe | | | malnutrition or obesity - Vegetarian diet - Rapidly changing kidney | | | function - Amputees, paraplegics, or other muscle-wasting diseses | | + + + + + + + + | Performing | Address | City/State/Zipcode | Phone Number | | Organization | | | | + + + + + | [facility] | [address] | [place] [address] | | | NATALEE WORTHINGTON | [address] | | | + + + + + CBC (HEMOGRAM) ONLY (09/18/2017 5:40 AM PDT) + + + + + + | Component | Value | Ref Range | Performed | Pathologist | | | | | At | Signature | + + + + + + | WHITE CELL | 11.09 (H) | 3.50 - 10.80 | [facility] | | | COUNT | | K/cu mm | LABORATORY | | | | | | SERVICES, | | | | | | CORE | | + + + + + + | RED CELL | 4.08 (L) | 4.50 - 6.00 | [facility] | | | COUNT | | M/cu mm | LABORATORY | | | | | | SERVICES, | | | | | | CORE | | + + + + + + | HEMOGLOBIN | 11.8 (L) | 13.5 - 17.5 | [facility] | | | | | g/dL | LABORATORY | | | | | | SERVICES, | | | | | | CORE | | + + + + + + | HEMATOCRIT | 37.4 (L) | 41.0 - 53.0 % | [facility] | | | | | | LABORATORY | | | | | | SERVICES, | | | | | | CORE | | + + + + + + | MCV | 91.7 | 80.0 - 100.0 fL | [facility] | | | | | | LABORATORY | | | | | | SERVICES, | | | | | | CORE | | + + + + + + | MCHC | 31.6 (L) | 32.0 - 36.0 | [facility] | | | | | g/dL | LABORATORY | | | | | | SERVICES, | | | | | | CORE | | + + + + + + | RDW SD | 61.3 (H) | 35.1 - 46.3 fL | [facility] | | | | | | LABORATORY | | | | | | SERVICES, | | | | | | CORE | | + + + + + + | PLATELET | 397 | 150 - 400 K/cu | [facility] | | | COUNT | | mm | LABORATORY | | | | | | SERVICES, | | | | | | CORE | | + + + + + + | MPV | 8.5 (L) | 9.7 - 12.3 fL | [facility] | | | | | | LABORATORY | | | | | | SERVICES, | | | | | | CORE | | + + + + + + | NRBC% | 0.0 | 0.0 - 0.3 % | [facility] | | | | | | LABORATORY | | | | | | SERVICES, | | | | | | CORE | | + + + + + + | NRBC# | 0.00 | 0.00 - 0.02 | [facility] | | | | | K/cu mm | LABORATORY | | | | | | SERVICES, | | | | | | CORE | | + + + + + + + + | Specimen | + + | Blood - Blood | | (substance) | + + + + + | Narrative | Performed At | + + + | New reference ranges for MCV, MCHC, PLT, IG% and IG# effective | [facility] | | 09/05/2017 | LABORATORY | | | SERVICES, CORE | + + + + + + + + | Performing | Address | City/State/Zipcode | Phone Number | | Organization | | | | + + + + + | [facility] | [address] | [place] [address] | | | SERVICES, CORE | [address] | | | + + + + + MAGNESIUM, PLASMA (09/18/2017 5:40 AM PDT) + +-------+ + + + | Component | Value | Ref Range | Performed | Pathologist | | | | | At | Signature | + +-------+ + + + | MAGNESIUM,P | 2.3 | 1.6 - 2.6 mg/dL | [facility] | | | LASMA | | | LABORATORY | | | | | | SERVICES, | | | | | | CORE | | + +-------+ + + + + + | Specimen | + + | Blood - Blood | | (substance) | + + + + + | Narrative | Performed At | + + + | Reference range change effective 12/11/16. | [facility] | | | LABORATORY | | | NATALEE WORTHINGTON | + + + + + + + + | Performing | Address | City/State/Zipcode | Phone Number | | Organization | | | | + + + + + | [facility] | [address] | [place] [address] | | | NATALEE WORTHINGTON | [address] | | | + + + + + RENAL FUNCTION SET (NA,K,CL,CO2,BUN,CREAT,GLUC,CA,PHOS,ALB ) (09/18/2017 5:40 AM PDT) + + + + + + | Component | Value | Ref Range | Performed | Pathologist | | | | | At | Signature | + + + + + + | GLUCOSE, | 115 (H) | 70 - 99 mg/dL | [facility] | | | PLASMA | | | LABORATORY | | | (LAB) | | | SERVICES, | | | | | | CORE | | + + + + + + | BUN, PLASMA | 13 | 6 - 20 mg/dL | [facility] | | | (LAB) | | | LABORATORY | | | | | | SERVICES, | | | | | | CORE | | + + + + + + | CREATININE | 0.46 (L) | 0.70 - 1.30 | [facility] | | | PLASMA | | mg/dL | LABORATORY | | | (LAB) | | | SERVICES, | | | | | | CORE | | + + + + + + | EGFR | >60 | >60 mL/min | [facility] | | | - | | | LABORATORY | | | SUDANESE | | | SERVICES, | | | | | | CORE | | + + + + + + | EGFR NON | >60 | >60 mL/min | [facility] | | | -KAYE | | | LABORATORY | | | RICAN | | | SERVICES, | | | | | | CORE | | + + + + + + | SODIUM, | 138 | 136 - 145 | [facility] | | | PLASMA | | mmol/L | LABORATORY | | | (LAB) | | | SERVICES, | | | | | | CORE | | + + + + + + | POTASSIUM, | 3.9 | 3.4 - 5.0 | [facility] | | | PLASMA | | mmol/L | LABORATORY | | | (LAB) | | | SERVICES, | | | | | | CORE | | + + + + + + | CHLORIDE, | 106 | 97 - 108 mmol/L | [facility] | | | PLASMA | | | LABORATORY | | | (LAB) | | | SERVICES, | | | | | | CORE | | + + + + + + | TOTAL CO2, | 27 | 21 - 32 mmol/L | [facility] | | | PLASMA | | | LABORATORY | | | (LAB) | | | SERVICES, | | | | | | CORE | | + + + + + + | CALCIUM, | 8.1 (L) | 8.6 - 10.2 | [facility] | | | PLASMA | | mg/dL | LABORATORY | | | (LAB) | | | SERVICES, | | | | | | CORE | | + + + + + + | CALCIUM(ALB | 9.1 | 8.6 - 10.2 | [facility] | | | CORRECTED) | | mg/dL | LABORATORY | | | | | | SERVICES, | | | | | | CORE | | + + + + + + | ALBUMIN, | 2.8 (L) | 3.5 - 4.7 g/dL | [facility] | | | PLASMA | | | LABORATORY | | | (LAB) | | | SERVICES, | | | | | | CORE | | + + + + + + | PHOSPHORUS, | 3.1 | 2.4 - 4.7 mg/dL | [facility] | | | PLASMA | | | LABORATORY | | | (LAB) | | | SERVICES, | | | | | | CORE | | + + + + + + | POTASSIUM | No Hemo | | [facility] | | | CMNT | | | LABORATORY | | | | | | SERVICES, | | | | | | CORE | | + + + + + + | ANION GAP | 5 | 4 - 11 mmol/L | [facility] | | | | | | LABORATORY | | | | | | SERVICES, | | | | | | CORE | | + + + + + + | ANION | 8 | 4 - 11 mmol/L | [facility] | | | GAP(ALB | | | LABORATORY | | | CORRECTED) | | | SERVICES, | | | | | | CORE | | + + + + + + + + | Specimen | + + | Blood - Blood | | (substance) | + + + + + | Narrative | Performed At | + + + | GFR is estimated using the MDRD equation recommended by the | [facility] | | National Kidney Disease Education Program. Estimated GFR | LABORATORY | | Interpretive Information: <60 mL/min/1.73 sq m | SERVICES, CORE | | Chronic Kidney Disease <15 mL/min/1.73 sq m | | | Kidney Failure Estimated GFR greater that 60 mL/min/1.73 sq m is of | | | limited clinical value. The MDRD equation is not valid in the | | | following situations: - Patients under 18 years of age - Severe | | | malnutrition or obesity - Vegetarian diet - Rapidly changing kidney | | | function - Amputees, paraplegics, or other muscle-wasting diseses | | + + + + + + + + | Performing | Address | City/State/Zipcode | Phone Number | | Organization | | | | + + + + + | [email or web address] | [address] | [place] [address] | | | SERVICES, NATALEE | [address] | | | + + + + + VASC LAB VENOUS DUPLEX LOWER EXTREMITY BILAT COMP (09/17/2017 10:00 AM PDT) + + | Specimen | + + | | + + + + + | Narrative | Performed At | + + + | Bilateral: The duplex scanner was used to examine the deep and | [facility] | | superficial veins of the right and left lower extremities. The | RADIOLOGY VASC | | veins are patent bilaterally with normal flow and responses to | [facility] | | augmentation and compression maneuvers and no thrombus is noted. | | | Conclusions: A normal venous examination of the bilateral lower | | | extremities. No venous thrombosis was detected. I have | | | personally reviewed the images and, if necessary, edited the report. | | | I agree with the report as now presented. | | + + + + + | Procedure Note | + + | Service Account, [employer] In Interface - 09/17/2017 11:53 AM PDT Bilateral: The | | duplex scanner was used to examine the deep and superficial veins of the right and left | | lower extremities. The veins are patent bilaterally with normal flow and responses to | | augmentation and compression maneuvers and no thrombus is noted.Conclusions: A normal | | venous examination of the bilateral lower extremities. No venous thrombosis was | | detected.I have personally reviewed the images and, if necessary, edited the report. I | | agree with the report as now presented. | | | | | |I have personally reviewed the images and, if necessary, edited the report. I agree with t he report as now presented. | + + + +---------+ + + | Performing | Address | City/State/Zipcode | Phone Number | | Organization | | | | + +---------+ + + | [facility] | | | | | VASC US | | | | + +---------+ + + CBC (HEMOGRAM) ONLY (09/17/2017 6:46 AM PDT) + + + + + + | Component | Value | Ref Range | Performed | Pathologist | | | | | At | Signature | + + + + + + | WHITE CELL | 10.18 | 3.50 - 10.80 | [facility] | | | COUNT | | K/cu mm | LABORATORY | | | | | | SERVICES, | | | | | | CORE | | + + + + + + | RED CELL | 4.48 (L) | 4.50 - 6.00 | [facility] | | | COUNT | | M/cu mm | LABORATORY | | | | | | SERVICES, | | | | | | CORE | | + + + + + + | HEMOGLOBIN | 13.0 (L) | 13.5 - 17.5 | [facility] | | | | | g/dL | LABORATORY | | | | | | SERVICES, | | | | | | CORE | | + + + + + + | HEMATOCRIT | 41.8 | 41.0 - 53.0 % | [facility] | | | | | | LABORATORY | | | | | | SERVICES, | | | | | | CORE | | + + + + + + | MCV | 93.3 | 80.0 - 100.0 fL | [facility] | | | | | | LABORATORY | | | | | | SERVICES, | | | | | | CORE | | + + + + + + | MCHC | 31.1 (L) | 32.0 - 36.0 | [facility] | | | | | g/dL | LABORATORY | | | | | | SERVICES, | | | | | | CORE | | + + + + + + | RDW SD | 61.9 (H) | 35.1 - 46.3 fL | [facility] | | | | | | LABORATORY | | | | | | SERVICES, | | | | | | CORE | | + + + + + + | PLATELET | 373 | 150 - 400 K/cu | [facility] | | | COUNT | | mm | LABORATORY | | | | | | SERVICES, | | | | | | CORE | | + + + + + + | MPV | 8.4 (L) | 9.7 - 12.3 fL | [facility] | | | | | | LABORATORY | | | | | | SERVICES, | | | | | | CORE | | + + + + + + | NRBC% | 0.0 | 0.0 - 0.3 % | [facility] | | | | | | LABORATORY | | | | | | SERVICES, | | | | | | CORE | | + + + + + + | NRBC# | 0.00 | 0.00 - 0.02 | [facility] | | | | | K/cu mm | LABORATORY | | | | | | SERVICES, | | | | | | CORE | | + + + + + + + + | Specimen | + + | Blood - Blood | | (substance) | + + + + + | Narrative | Performed At | + + + | New reference ranges for MCV, MCHC, PLT, IG% and IG# effective | [facility] | | 09/05/2017 | LABORATORY | | | SERVICES, CORE | + + + + + + + + | Performing | Address | City/State/Zipcode | Phone Number | | Organization | | | | + + + + + | [facility] | [address] | [place] [address] | | | SERVICES, CORE | [address] | | | + + + + + MAGNESIUM, PLASMA (09/17/2017 6:46 AM PDT) + +-------+ + + + | Component | Value | Ref Range | Performed | Pathologist | | | | | At | Signature | + +-------+ + + + | MAGNESIUM,P | 2.4 | 1.6 - 2.6 mg/dL | [facility] | | | LASMA | | | LABORATORY | | | | | | SERVICES, | | | | | | CORE | | + +-------+ + + + + + | Specimen | + + | Blood - Blood | | (substance) | + + + + + | Narrative | Performed At | + + + | Reference range change effective 12/11/16. | [facility] | | | LABORATORY | | | SERVICES, CORE | + + + + + + + + | Performing | Address | City/State/Zipcode | Phone Number | | Organization | | | | + + + + + | [facility] | [address] | [place] [address] | | | SERVICES, CORE | [address] | | | + + + + + RENAL FUNCTION SET (NA,K,CL,CO2,BUN,CREAT,GLUC,CA,PHOS,ALB ) (09/17/2017 6:46 AM PDT) + + + + + + | Component | Value | Ref Range | Performed | Pathologist | | | | | At | Signature | + + + + + + | GLUCOSE, | 118 (H) | 70 - 99 mg/dL | [facility] | | | PLASMA | | | LABORATORY | | | (LAB) | | | SERVICES, | | | | | | CORE | | + + + + + + | BUN, PLASMA | 12 | 6 - 20 mg/dL | [facility] | | | (LAB) | | | LABORATORY | | | | | | SERVICES, | | | | | | CORE | | + + + + + + | CREATININE | 0.48 (L) | 0.70 - 1.30 | [facility] | | | PLASMA | | mg/dL | LABORATORY | | | (LAB) | | | SERVICES, | | | | | | CORE | | + + + + + + | EGFR | >60 | >60 mL/min | [facility] | | | - | | | LABORATORY | | | SUDANESE | | | SERVICES, | | | | | | CORE | | + + + + + + | EGFR NON | >60 | >60 mL/min | [facility] | | | -KAYE | | | LABORATORY | | | RICAN | | | SERVICES, | | | | | | CORE | | + + + + + + | SODIUM, | 139 | 136 - 145 | [facility] | | | PLASMA | | mmol/L | LABORATORY | | | (LAB) | | | SERVICES, | | | | | | CORE | | + + + + + + | POTASSIUM, | 4.1 | 3.4 - 5.0 | [facility] | | | PLASMA | | mmol/L | LABORATORY | | | (LAB) | | | SERVICES, | | | | | | CORE | | + + + + + + | CHLORIDE, | 109 (H) | 97 - 108 mmol/L | [facility] | | | PLASMA | | | LABORATORY | | | (LAB) | | | SERVICES, | | | | | | CORE | | + + + + + + | TOTAL CO2, | 23 | 21 - 32 mmol/L | [facility] | | | PLASMA | | | LABORATORY | | | (LAB) | | | SERVICES, | | | | | | CORE | | + + + + + + | CALCIUM, | 8.2 (L) | 8.6 - 10.2 | [facility] | | | PLASMA | | mg/dL | LABORATORY | | | (LAB) | | | SERVICES, | | | | | | CORE | | + + + + + + | CALCIUM(ALB | 9.2 | 8.6 - 10.2 | [facility] | | | CORRECTED) | | mg/dL | LABORATORY | | | | | | SERVICES, | | | | | | CORE | | + + + + + + | ALBUMIN, | 2.8 (L) | 3.5 - 4.7 g/dL | [facility] | | | PLASMA | | | LABORATORY | | | (LAB) | | | SERVICES, | | | | | | CORE | | + + + + + + | PHOSPHORUS, | 3.5 | 2.4 - 4.7 mg/dL | [facility] | | | PLASMA | | | LABORATORY | | | (LAB) | | | SERVICES, | | | | | | CORE | | + + + + + + | POTASSIUM | No Hemo | | [facility] | | | CMNT | | | LABORATORY | | | | | | SERVICES, | | | | | | CORE | | + + + + + + | ANION GAP | 7 | 4 - 11 mmol/L | [facility] | | | | | | LABORATORY | | | | | | SERVICES, | | | | | | CORE | | + + + + + + | ANION | 10 | 4 - 11 mmol/L | [facility] | | | GAP(ALB | | | LABORATORY | | | CORRECTED) | | | SERVICES, | | | | | | CORE | | + + + + + + + + | Specimen | + + | Blood - Blood | | (substance) | + + + + + | Narrative | Performed At | + + + | GFR is estimated using the MDRD equation recommended by the | [facility] | | National Kidney Disease Education Program. Estimated GFR | LABORATORY | | Interpretive Information: <60 mL/min/1.73 sq m | SERVICES, CORE | | Chronic Kidney Disease <15 mL/min/1.73 sq m | | | Kidney Failure Estimated GFR greater that 60 mL/min/1.73 sq m is of | | | limited clinical value. The MDRD equation is not valid in the | | | following situations: - Patients under 18 years of age - Severe | | | malnutrition or obesity - Vegetarian diet - Rapidly changing kidney | | | function - Amputees, paraplegics, or other muscle-wasting diseses | | + + + + + + + + | Performing | Address | City/State/Zipcode | Phone Number | | Organization | | | | + + + + + | [facility] | [address] | [place] [address] | | | SERVICES, CORE | [address] | | | + + + + + X-RAY PORTABLE CHEST PICC LINE CHECK (09/16/2017 1:11 PM PDT) + + | Specimen | + + | | + + + + + | Narrative | Performed At | + + + | EXAM: CO CHEST PICC LINE CHECK HISTORY: PICC placement | [facility] | | COMPARISON: Earlier today FINDINGS: Left upper extremity PICC | RADIOLOGY VOICE | | tip now projects in the right atrium, approximately 1 cm below the | RECOGNITION | | cavoatrial junction. Feeding tube extends below diaphragm. Minimal | | | bibasilar atelectasis, otherwise clear lungs. There is no | | | pneumothorax. No pulmonary edema. IMPRESSION: Left upper | | | extremity PICC tip in the right atrium, approximately 1 cm below the | | | cavoatrial junction. Minimal bibasilar atelectasis, otherwise | | | clear lungs. I have personally reviewed the images and, if | | | necessary, edited the report. I agree with the report as now | | | presented. | | + + + + + | Procedure Note | + + | Service Account, [employer] In Interface - 09/16/2017 1:34 PM PDT EXAM: CO CHEST | | PICC LINE CHECK HISTORY: PICC placementCOMPARISON: Earlier todayFINDINGS: Left upper | | extremity PICC tip now projects in the right atrium, approximately 1 cm below the | | cavoatrial junction. Feeding tube extends below diaphragm. Minimal bibasilar | | atelectasis, otherwise clear lungs. There is no pneumothorax. No pulmonary | | edema.IMPRESSION: Left upper extremity PICC tip in the right atrium, approximately 1 cm | | below the cavoatrial junction.Minimal bibasilar atelectasis, otherwise clear lungs.I | | have personally reviewed the images and, if necessary, edited the report. I agree with | | the report as now presented. | |There is no pneumothorax. No pulmonary edema. | | | |IMPRESSION: | | | |Left upper extremity PICC tip in the right atrium, approximately 1 cm below the cavoatrial junction. | | | |Minimal bibasilar atelectasis, otherwise clear lungs. | | | | | |I have personally reviewed the images and, if necessary, edited the report. I agree with t he report as now presented. | + + + +---------+ + + | Performing | Address | City/State/Zipcode | Phone Number | | Organization | | | | + +---------+ + + | [facility] | | | | | VOICE RECOGNITION | | | | + +---------+ + + X-RAY PORTABLE CHEST PICC LINE CHECK (09/16/2017 11:06 AM PDT) + + | Specimen | + + | | + + + + + | Narrative | Performed At | + + + | EXAM: CO CHEST PICC LINE CHECK HISTORY: Evaluate PICC | [facility] | | positioning. COMPARISON: Yesterday FINDINGS: The left | RADIOLOGY VOICE | | upper extremity PICC is abnormally positioned and extends cephalad | RECOGNITION | | into the right brachiocephalic or potentially extended into the azygos | | | vein.. Cervical collar and weighted tip feeding tube are unchanged. | | | Skin fernandez noted over the central upper abdomen. The | | | cardiomediastinal contour is normal. Persistent mild patchy perihilar | | | consolidative opacities and unchanged retrocardiac atelectasis. There | | | is no pleural effusion or pneumothorax. There is no pulmonary edema. | | | The bones are intact. IMPRESSION: Left upper extremity PICC | | | now extends cephalad into the right brachiocephalic vein or in the | | | azygos vein. Otherwise stable exam. These results were discussed | | | with the patient's nurse, Adrianna, at the time of dictation. I | | | have personally reviewed the images and, if necessary, edited the | | | report. I agree with the report as now presented. | | + + + + + | Procedure Note | + + | Service Account, [employer] In Interface - 09/16/2017 11:41 AM PDT EXAM: CO CHEST | | PICC LINE CHECK HISTORY: Evaluate PICC positioning. COMPARISON: Yesterday FINDINGS: The | | left upper extremity PICC is abnormally positioned and extends cephalad into the right | | brachiocephalic or potentially extended into the azygos vein.. Cervical collar and | | weighted tip feeding tube are unchanged. Skin fernandez noted over the central upper | | abdomen. The cardiomediastinal contour is normal. Persistent mild patchy perihilar | | consolidative opacities and unchanged retrocardiac atelectasis. There is no pleural | | effusion or pneumothorax. There is no pulmonary edema. The bones are intact. IMPRESSION: | | Left upper extremity PICC now extends cephalad into the right brachiocephalic vein or | | in the azygos vein. Otherwise stable exam.These results were discussed with the | | patient's nurse, Adrianna, at the time of dictation.I have personally reviewed the images | | and, if necessary, edited the report. I agree with the report as now presented. | | | |IMPRESSION: | | | | Left upper extremity PICC now extends cephalad into the right brachiocephalic vein or in the azygos vein. Otherwise stable exam. | | | |These results were discussed with the patient's nurse, Adrianna, at the time of dictation. | | | | | |I have personally reviewed the images and, if necessary, edited the report. I agree with t he report as now presented. | + + + +---------+ + + | Performing | Address | City/State/Zipcode | Phone Number | | Organization | | | | + +---------+ + + | [facility] | | | | | VOICE RECOGNITION | | | | + +---------+ + + CBC (HEMOGRAM) ONLY (09/16/2017 5:32 AM PDT) + + + + + + | Component | Value | Ref Range | Performed | Pathologist | | | | | At | Signature | + + + + + + | WHITE CELL | 10.91 (H) | 3.50 - 10.80 | [facility] | | | COUNT | | K/cu mm | LABORATORY | | | | | | SERVICES, | | | | | | CORE | | + + + + + + | RED CELL | 4.11 (L) | 4.50 - 6.00 | [facility] | | | COUNT | | M/cu mm | LABORATORY | | | | | | SERVICES, | | | | | | CORE | | + + + + + + | HEMOGLOBIN | 12.0 (L) | 13.5 - 17.5 | [facility] | | | | | g/dL | LABORATORY | | | | | | SERVICES, | | | | | | CORE | | + + + + + + | HEMATOCRIT | 37.4 (L) | 41.0 - 53.0 % | [facility] | | | | | | LABORATORY | | | | | | SERVICES, | | | | | | CORE | | + + + + + + | MCV | 91.0 | 80.0 - 100.0 fL | [facility] | | | | | | LABORATORY | | | | | | SERVICES, | | | | | | CORE | | + + + + + + | MCHC | 32.1 | 32.0 - 36.0 | [facility] | | | | | g/dL | LABORATORY | | | | | | SERVICES, | | | | | | CORE | | + + + + + + | RDW SD | 57.8 (H) | 35.1 - 46.3 fL | [facility] | | | | | | LABORATORY | | | | | | SERVICES, | | | | | | CORE | | + + + + + + | PLATELET | 435 (H) | 150 - 400 K/cu | [facility] | | | COUNT | | mm | LABORATORY | | | | | | SERVICES, | | | | | | CORE | | + + + + + + | MPV | 8.5 (L) | 9.7 - 12.3 fL | [facility] | | | | | | LABORATORY | | | | | | SERVICES, | | | | | | CORE | | + + + + + + | NRBC% | 0.0 | 0.0 - 0.3 % | [facility] | | | | | | LABORATORY | | | | | | SERVICES, | | | | | | CORE | | + + + + + + | NRBC# | 0.00 | 0.00 - 0.02 | [facility] | | | | | K/cu mm | LABORATORY | | | | | | SERVICES, | | | | | | CORE | | + + + + + + + + | Specimen | + + | Blood - Blood | | (substance) | + + + + + | Narrative | Performed At | + + + | New reference ranges for MCV, MCHC, PLT, IG% and IG# effective | [facility] | | 09/05/2017 | LABORATORY | | | SERVICES, CORE | + + + + + + + + | Performing | Address | City/State/Zipcode | Phone Number | | Organization | | | | + + + + + | [facility] | [phone] | [place] [address] | | | SERVICES, CORE | [address] | | | + + + + + MAGNESIUM, PLASMA (09/16/2017 5:32 AM PDT) + +-------+ + + + | Component | Value | Ref Range | Performed | Pathologist | | | | | At | Signature | + +-------+ + + + | MAGNESIUM,P | 2.3 | 1.6 - 2.6 mg/dL | [facility] | | | LASMA | | | LABORATORY | | | | | | SERVICES, | | | | | | CORE | | + +-------+ + + + + + | Specimen | + + | Blood - Blood | | (substance) | + + + + + | Narrative | Performed At | + + + | Reference range change effective 12/11/16. | [facility] | | | LABORATORY | | | SERVICES, CORE | + + + + + + + + | Performing | Address | City/State/Zipcode | Phone Number | | Organization | | | | + + + + + | [facility] | [address] | [place] [address] | | | SERVICES, CORE | [address] | | | + + + + + RENAL FUNCTION SET (NA,K,CL,CO2,BUN,CREAT,GLUC,CA,PHOS,ALB ) (09/16/2017 5:32 AM PDT) + + + + + + | Component | Value | Ref Range | Performed | Pathologist | | | | | At | Signature | + + + + + + | GLUCOSE, | 124 (H) | 70 - 99 mg/dL | [facility] | | | PLASMA | | | LABORATORY | | | (LAB) | | | SERVICES, | | | | | | CORE | | + + + + + + | BUN, PLASMA | 11 | 6 - 20 mg/dL | [facility] | | | (LAB) | | | LABORATORY | | | | | | SERVICES, | | | | | | CORE | | + + + + + + | CREATININE | 0.43 (L) | 0.70 - 1.30 | [facility] | | | PLASMA | | mg/dL | LABORATORY | | | (LAB) | | | SERVICES, | | | | | | CORE | | + + + + + + | EGFR | >60 | >60 mL/min | [facility] | | | - | | | LABORATORY | | | [facility] | | | SERVICES, | | | | | | CORE | | + + + + + + | EGFR NON | >60 | >60 mL/min | [facility] | | | -[facility] | | | LABORATORY | | | [facility] | | | SERVICES, | | | | | | CORE | | + + + + + + | SODIUM, | 141 | 136 - 145 | [facility] | | | PLASMA | | mmol/L | LABORATORY | | | (LAB) | | | SERVICES, | | | | | | CORE | | + + + + + + | POTASSIUM, | 3.3 (L) | 3.4 - 5.0 | [facility] | | | PLASMA | | mmol/L | LABORATORY | | | (LAB) | | | SERVICES, | | | | | | CORE | | + + + + + + | CHLORIDE, | 108 | 97 - 108 mmol/L | [facility] | | | PLASMA | | | LABORATORY | | | (LAB) | | | SERVICES, | | | | | | CORE | | + + + + + + | TOTAL CO2, | 26 | 21 - 32 mmol/L | [facility] | | | PLASMA | | | LABORATORY | | | (LAB) | | | SERVICES, | | | | | | CORE | | + + + + + + | CALCIUM, | 8.2 (L) | 8.6 - 10.2 | [facility] | | | PLASMA | | mg/dL | LABORATORY | | | (LAB) | | | SERVICES, | | | | | | CORE | | + + + + + + | CALCIUM(ALB | 9.2 | 8.6 - 10.2 | [facility] | | | CORRECTED) | | mg/dL | LABORATORY | | | | | | SERVICES, | | | | | | CORE | | + + + + + + | ALBUMIN, | 2.7 (L) | 3.5 - 4.7 g/dL | [facility] | | | PLASMA | | | LABORATORY | | | (LAB) | | | SERVICES, | | | | | | CORE | | + + + + + + | PHOSPHORUS, | 2.7 | 2.4 - 4.7 mg/dL | [facility] | | | PLASMA | | | LABORATORY | | | (LAB) | | | SERVICES, | | | | | | CORE | | + + + + + + | POTASSIUM | No Hemo | | [facility] | | | CMNT | | | LABORATORY | | | | | | SERVICES, | | | | | | CORE | | + + + + + + | ANION GAP | 7 | 4 - 11 mmol/L | [facility] | | | | | | LABORATORY | | | | | | SERVICES, | | | | | | CORE | | + + + + + + | ANION | 10 | 4 - 11 mmol/L | [facility] | | | GAP(ALB | | | LABORATORY | | | CORRECTED) | | | SERVICES, | | | | | | CORE | | + + + + + + + + | Specimen | + + | Blood - Blood | | (substance) | + + + + + | Narrative | Performed At | + + + | GFR is estimated using the MDRD equation recommended by the | [facility] | | National Kidney Disease Education Program. Estimated GFR | LABORATORY | | Interpretive Information: <60 mL/min/1.73 sq m | SERVICES, CORE | | Chronic Kidney Disease <15 mL/min/1.73 sq m | | | Kidney Failure Estimated GFR greater that 60 mL/min/1.73 sq m is of | | | limited clinical value. The MDRD equation is not valid in the | | | following situations: - Patients under 18 years of age - Severe | | | malnutrition or obesity - Vegetarian diet - Rapidly changing kidney | | | function - Amputees, paraplegics, or other muscle-wasting diseses | | + + + + + + + + | Performing | Address | City/State/Zipcode | Phone Number | | Organization | | | | + + + + + | [facility] | [address] | [place] [address] | | | SERVICES, [facility] | [address] | | | + + + + + X-RAY PORTABLE CHEST 1 VIEW (09/15/2017 3:28 PM PDT) + + | Specimen | + + | | + + + + + | Narrative | Performed At | + + + | EXAM: CO CHEST 1 VIEW HISTORY: COMPARISON: None. | [facility] | | FINDINGS: The left upper extremity PICC has been repositioned, | RADIOLOGY VOICE | | now terminating 5 cm above the superior cavoatrial junction. The | RECOGNITION | | enteric tube is unchanged. The mediastinum is unchanged. There is | | | unchanged scattered peribronchovascular nodular groundglass | | | opacification. Mild retrocardiac atelectasis persists. There is no | | | definite pleural effusion. There is no pneumothorax. IMPRESSION: | | | Left upper extremity PICC terminates 5 cm above the superior | | | cavoatrial junction in the upper SVC. Persistent mild retrocardiac | | | atelectasis and scattered nodular groundglass likely represent | | | retained secretions and inflammatory change. I have personally | | | reviewed the images and, if necessary, edited the report. I agree | | | with the report as now presented. | | + + + + + | Procedure Note | + + | Service Account, Radiant Res In Interface - 09/15/2017 6:45 PM PDT EXAM: CO CHEST 1 | | VIEW HISTORY: COMPARISON: None.FINDINGS: The left upper extremity PICC has been | | repositioned, now terminating 5 cm above the superior cavoatrial junction. The enteric | | tube is unchanged.The mediastinum is unchanged. There is unchanged scattered | | peribronchovascular nodular groundglass opacification. Mild retrocardiac atelectasis | | persists. There is no definite pleural effusion. There is no pneumothorax. IMPRESSION: | | Left upper extremity PICC terminates 5 cm above the superior cavoatrial junction in the | | upper SVC.Persistent mild retrocardiac atelectasis and scattered nodular groundglass | | likely represent retained secretions and inflammatory change.I have personally reviewed | | the images and, if necessary, edited the report. I agree with the report as now | | presented. | | | |IMPRESSION: | | | |Left upper extremity PICC terminates 5 cm above the superior cavoatrial junction in the upp er SVC. | | | |Persistent mild retrocardiac atelectasis and scattered nodular groundglass likely represent retained secretions and inflammatory change. | | | | | |I have personally reviewed the images and, if necessary, edited the report. I agree with t he report as now presented. | + + + +---------+ + + | Performing | Address | City/State/Zipcode | Phone Number | | Organization | | | | + +---------+ + + | [facility] | | | | | VOICE RECOGNITION | | | | + +---------+ + + X-RAY PORTABLE CHEST PICC LINE CHECK (09/15/2017 2:33 PM PDT) + + | Specimen | + + | | + + + + + | Narrative | Performed At | + + + | EXAM: CO CHEST PICC LINE CHECK HISTORY: PICC COMPARISON: | [facility] | | 09/10/17 FINDINGS: A left upper extremity PICC has been | RADIOLOGY VOICE | | placed, which terminates in the azygos arch. The enteric tube is | RECOGNITION | | unchanged. The mediastinum is unchanged. Lung volumes have | | | improved. There is unchanged scattered peribronchovascular nodular | | | groundglass opacification. Retrocardiac atelectasis has improved. | | | There is no definite pleural effusion. There is no pneumothorax. | | | IMPRESSION: Left upper extremity PICC terminates in the azygos | | | arch. Improved lung volumes. Scattered nodular groundglass is | | | favored to represent persistent retained secretions and inflammatory | | | change. I have personally reviewed the images and, if | | | necessary, edited the report. I agree with the report as now | | | presented. | | + + + + + | Procedure Note | + + | Service Account, Radiant Res In Interface - 09/15/2017 6:43 PM PDT EXAM: CO CHEST | | PICC LINE CHECK HISTORY: PICCCOMPARISON: 09/10/17INDINGS: A left upper extremity PICC | | has been placed, which terminates in the azygos arch. The enteric tube is unchanged.The | | mediastinum is unchanged. Lung volumes have improved. There is unchanged scattered | | peribronchovascular nodular groundglass opacification. Retrocardiac atelectasis has | | improved. There is no definite pleural effusion. There is no pneumothorax. IMPRESSION: | | Left upper extremity PICC terminates in the azygos arch.Improved lung volumes. Scattered | | nodular groundglass is favored to represent persistent retained secretions and | | inflammatory change.I have personally reviewed the images and, if necessary, edited the | | report. I agree with the report as now presented. | |The mediastinum is unchanged. Lung volumes have improved. There is unchanged scattered edil bronchovascular nodular groundglass opacification. Retrocardiac atelectasis has improved. Th ere is no definite pleural effusion. There is no pneumothorax. | | | |IMPRESSION: | | | |Left upper extremity PICC terminates in the azygos arch. | | | |Improved lung volumes. Scattered nodular groundglass is favored to represent persistent ret ained secretions and inflammatory change. | | | | | |I have personally reviewed the images and, if necessary, edited the report. I agree with t frankie report as now presented. | + + + +---------+ + + | Performing | Address | City/State/Zipcode | Phone Number | | Organization | | | | + +---------+ + + | [facility] | | | | | VOICE RECOGNITION | | | | + +---------+ + + PICC LINE (09/15/2017 2:15 PM PDT) + + + | Narrative | Performed At | + + + | Chris Stone RN 09/16/2017 3:42 PM PICC LINE | | | Performed by: CHRIS STONE Authorized by: CHAZ HERNANDEZ | | | PICC/Midline Insertion Procedure Note Indications:TPN Procedure | | | location: Unit:[facility] Room: 12 Providers: Attending name: | | | Attending physically present: No PICC Nurse name: Chris Kern | | | Jarad RN,BSN,VAT Assisted by Declan dorantes RN,VAT | | | Pre-Procedure Consent: written consent obtained Consent given by: | | | Patient Patient identity confirmed per protocol: Yes Team Pause: | | | Immediatly prior to the procedure a pause per protocol was called. A | | | pause verifies correct patient, procedure, equipment, client support professional | | | and site/side marked as required. CLABSI Prevention Bundle: | | | Skin preparation: Chloraprep Protective barrier: Cap, Mask, | | | Hand scrub, Gown, Gloves and Full body drape. Cap and mask worn by | | | assistive personnel.Sterile Ultrasound techniques (sterile gel, and | | | sterile probe cover) used Dressing: | | | Hemostatic agent applied Procedure Details Patient was placed | | | in appropriate position The vascular anatomy was identified by | | | Ultrasound Guidance.wire through the needle, introducer over the | | | wire, then catheter through the introducer Tip was placed using TLS | | | (Tip Locating System) and TPS (Tip Positioning System). . A | | | non-tunneled PICC Double lumen 5 Fr was placed in the Left Arm | | | area Basilic vein. Catheter lot number: [id number] with a length of 55 | | | cm was selected and trimmed 13 to a remaining length of 42 cm | | | All ports aspirated for blood and flushed with saline Procedure | | | comments: Left Upper PICC is in th e Azygos. Pulled back and flushed | | | well with Sterile Normal Saline. Blood return noted 09/16/2017 Pt | | | left upper arm double lumen PICC is in the Azygos after patient | | | vomits sometime today. CX Ray ordered and done.. TPN was stopped by | | | RN. Adjusted PICC Line per radiology pulled backed 2 cm and flushed | | | with 20 ml Normal saline each lumen. Chest X Ray requested again and | | | PICC is out of the azygos. RN notified and re -started TPN. | | | Power-injectable line: yes Attempts 1 attempt(s) were made | | | Complications None PICC catheter tip location Chest radiograph | | | ordered to verify placement and Line verified by radiograph | | | Adjustments made after chest film obtained: None External measurement | | | of catheter exposed: 5 cm. PICC catheter tip location: Cavo-Atrial | | | Junction Radiologist confirmed tip position Estimated blood loss: | | | <10mL | | + + + VAT: PICC INSERTION W/US (09/15/2017 1:13 PM PDT) + + | Specimen | + + | | + + + + + | Narrative | Performed At | + + + | See procedure note. | | + + + X-RAY ABDOMEN 1 VIEW (09/15/2017 6:07 AM PDT) + + | Specimen | + + | | + + + + + | Narrative | Performed At | + + + | EXAM: ABDOMEN 1 VIEW HISTORY: Ileus COMPARISON: 09/12/17 | [facility] | | FINDINGS: The gastric tube has been removed. Enteric tube is in | RADIOLOGY VOICE | | unchanged position. The bowel gas pattern is unremarkable. There | RECOGNITION | | is no evidence of pneumoperitoneum, although supine imaging limits | | | evaluation. There is no pneumatosis or portal venous gas. | | | IMPRESSION: Unremarkable bowel gas pattern. No evidence of ileus. | | | I have personally reviewed the images and, if necessary, | | | edited the report. I agree with the report as now presented. | | + + + + + | Procedure Note | + + | Service Adal, Radiant Res In Interface - 09/15/2017 2:13 PM PDT EXAM: ABDOMEN 1 | | VIEWHISTORY: IleusCOMPARISON: 09/12/17INDINGS: The gastric tube has been removed. | | Enteric tube is in unchanged position.The bowel gas pattern is unremarkable. There is no | | evidence of pneumoperitoneum, although supine imaging limits evaluation. There is no | | pneumatosis or portal venous gas.IMPRESSION: Unremarkable bowel gas pattern. No evidence | | of ileus.I have personally reviewed the images and, if necessary, edited the report. I | | agree with the report as now presented. | | | |The gastric tube has been removed. Enteric tube is in unchanged position. | | | |The bowel gas pattern is unremarkable. There is no evidence of pneumoperitoneum, although s upine imaging limits evaluation. There is no pneumatosis or portal venous gas. | | | |IMPRESSION: | | | |Unremarkable bowel gas pattern. No evidence of ileus. | | | | | |I have personally reviewed the images and, if necessary, edited the report. I agree with t he report as now presented. | + + + +---------+ + + | Performing | Address | City/State/Zipcode | Phone Number | | Organization | | | | + +---------+ + + | [facility] | | | | | VOICE RECOGNITION | | | | + +---------+ + + CBC (HEMOGRAM) ONLY (09/15/2017 6:02 AM PDT) + + + + + + | Component | Value | Ref Range | Performed | Pathologist | | | | | At | Signature | + + + + + + | WHITE CELL | 10.85 (H) | 3.50 - 10.80 | [facility] | | | COUNT | | K/cu mm | LABORATORY | | | | | | SERVICES, | | | | | | CORE | | + + + + + + | RED CELL | 3.97 (L) | 4.50 - 6.00 | [facility] | | | COUNT | | M/cu mm | LABORATORY | | | | | | SERVICES, | | | | | | CORE | | + + + + + + | HEMOGLOBIN | 11.4 (L) | 13.5 - 17.5 | [facility] | | | | | g/dL | LABORATORY | | | | | | SERVICES, | | | | | | CORE | | + + + + + + | HEMATOCRIT | 36.5 (L) | 41.0 - 53.0 % | [facility] | | | | | | LABORATORY | | | | | | SERVICES, | | | | | | CORE | | + + + + + + | MCV | 91.9 | 80.0 - 100.0 fL | [facility] | | | | | | LABORATORY | | | | | | SERVICES, | | | | | | CORE | | + + + + + + | MCHC | 31.2 (L) | 32.0 - 36.0 | [facility] | | | | | g/dL | LABORATORY | | | | | | SERVICES, | | | | | | CORE | | + + + + + + | RDW SD | 57.7 (H) | 35.1 - 46.3 fL | [facility] | | | | | | LABORATORY | | | | | | SERVICES, | | | | | | CORE | | + + + + + + | PLATELET | 494 (H) | 150 - 400 K/cu | [facility] | | | COUNT | | mm | LABORATORY | | | | | | SERVICES, | | | | | | CORE | | + + + + + + | MPV | 8.3 (L) | 9.7 - 12.3 fL | [facility] | | | | | | LABORATORY | | | | | | SERVICES, | | | | | | CORE | | + + + + + + | NRBC% | 0.0 | 0.0 - 0.3 % | [facility] | | | | | | LABORATORY | | | | | | SERVICES, | | | | | | CORE | | + + + + + + | NRBC# | 0.00 | 0.00 - 0.02 | [facility] | | | | | K/cu mm | LABORATORY | | | | | | SERVICES, | | | | | | CORE | | + + + + + + + + | Specimen | + + | Blood - Blood | | (substance) | + + + + + | Narrative | Performed At | + + + | New reference ranges for MCV, MCHC, PLT, IG% and IG# effective | [facility] | | 09/05/2017 | LABORATORY | | | SERVICES, CORE | + + + + + + + + | Performing | Address | City/State/Zipcode | Phone Number | | Organization | | | | + + + + + | [facility] | [address] | [place] [address] | | | SERVICES, CORE | [address] | | | + + + + + MAGNESIUM, PLASMA (09/15/2017 6:02 AM PDT) + +-------+ + + + | Component | Value | Ref Range | Performed | Pathologist | | | | | At | Signature | + +-------+ + + + | MAGNESIUM,P | 2.1 | 1.6 - 2.6 mg/dL | [facility] | | | LASMA | | | LABORATORY | | | | | | SERVICES, | | | | | | CORE | | + +-------+ + + + + + | Specimen | + + | Blood - Blood | | (substance) | + + + + + | Narrative | Performed At | + + + | Reference range change effective 12/11/16. | [facility] | | | LABORATORY | | | SERVICES, CORE | + + + + + + + + | Performing | Address | City/State/Zipcode | Phone Number | | Organization | | | | + + + + + | [facility] | [address] | [place] [address] | | | SERVICES, CORE | [address] | | | + + + + + RENAL FUNCTION SET (NA,K,CL,CO2,BUN,CREAT,GLUC,CA,PHOS,ALB ) (09/15/2017 6:02 AM PDT) + + + + + + | Component | Value | Ref Range | Performed | Pathologist | | | | | At | Signature | + + + + + + | GLUCOSE, | 93 | 70 - 99 mg/dL | [facility] | | | PLASMA | | | LABORATORY | | | (LAB) | | | SERVICES, | | | | | | CORE | | + + + + + + | BUN, PLASMA | 8 | 6 - 20 mg/dL | [facility] | | | (LAB) | | | LABORATORY | | | | | | SERVICES, | | | | | | CORE | | + + + + + + | CREATININE | 0.49 (L) | 0.70 - 1.30 | [facility] | | | PLASMA | | mg/dL | LABORATORY | | | (LAB) | | | SERVICES, | | | | | | CORE | | + + + + + + | EGFR | >60 | >60 mL/min | [facility] | | | - | | | LABORATORY | | | SUDANESE | | | SERVICES, | | | | | | CORE | | + + + + + + | EGFR NON | >60 | >60 mL/min | [facility] | | | -KAYE | | | LABORATORY | | | RICAN | | | SERVICES, | | | | | | CORE | | + + + + + + | SODIUM, | 144 | 136 - 145 | [facility] | | | PLASMA | | mmol/L | LABORATORY | | | (LAB) | | | SERVICES, | | | | | | CORE | | + + + + + + | POTASSIUM, | 3.3 (L) | 3.4 - 5.0 | [facility] | | | PLASMA | | mmol/L | LABORATORY | | | (LAB) | | | SERVICES, | | | | | | CORE | | + + + + + + | CHLORIDE, | 112 (H) | 97 - 108 mmol/L | [facility] | | | PLASMA | | | LABORATORY | | | (LAB) | | | SERVICES, | | | | | | CORE | | + + + + + + | TOTAL CO2, | 23 | 21 - 32 mmol/L | [facility] | | | PLASMA | | | LABORATORY | | | (LAB) | | | SERVICES, | | | | | | CORE | | + + + + + + | CALCIUM, | 7.9 (L) | 8.6 - 10.2 | [facility] | | | PLASMA | | mg/dL | LABORATORY | | | (LAB) | | | SERVICES, | | | | | | CORE | | + + + + + + | CALCIUM(ALB | 9.0 | 8.6 - 10.2 | [facility] | | | CORRECTED) | | mg/dL | LABORATORY | | | | | | SERVICES, | | | | | | CORE | | + + + + + + | ALBUMIN, | 2.6 (L) | 3.5 - 4.7 g/dL | [facility] | | | PLASMA | | | LABORATORY | | | (LAB) | | | SERVICES, | | | | | | CORE | | + + + + + + | PHOSPHORUS, | 3.0 | 2.4 - 4.7 mg/dL | [facility] | | | PLASMA | | | LABORATORY | | | (LAB) | | | SERVICES, | | | | | | CORE | | + + + + + + | POTASSIUM | No Hemo | | [facility] | | | CMNT | | | LABORATORY | | | | | | SERVICES, | | | | | | CORE | | + + + + + + | ANION GAP | 9 | 4 - 11 mmol/L | [facility] | | | | | | LABORATORY | | | | | | SERVICES, | | | | | | CORE | | + + + + + + | ANION | 12 (H) | 4 - 11 mmol/L | [facility] | | | GAP(ALB | | | LABORATORY | | | CORRECTED) | | | SERVICES, | | | | | | CORE | | + + + + + + + + | Specimen | + + | Blood - Blood | | (substance) | + + + + + | Narrative | Performed At | + + + | GFR is estimated using the MDRD equation recommended by the | [facility] | | National Kidney Disease Education Program. Estimated GFR | LABORATORY | | Interpretive Information: <60 mL/min/1.73 sq m | SERVICES, CORE | | Chronic Kidney Disease <15 mL/min/1.73 sq m | | | Kidney Failure Estimated GFR greater that 60 mL/min/1.73 sq m is of | | | limited clinical value. The MDRD equation is not valid in the | | | following situations: - Patients under 18 years of age - Severe | | | malnutrition or obesity - Vegetarian diet - Rapidly changing kidney | | | function - Amputees, paraplegics, or other muscle-wasting diseses | | + + + + + + + + | Performing | Address | City/State/Zipcode | Phone Number | | Organization | | | | + + + + + | [facility] | [address] | [place] [address] | | | SERVICES, CORE | [address] | | | + + + + + X-RAY SPINE CERVICAL 2 VIEWS (09/14/2017 4:51 PM PDT) + + | Specimen | + + | | + + + + + | Narrative | Performed At | + + + | EXAM: SPINE CERVICAL 2 VIEWS HISTORY: Cervical spine fractures | [facility] | | COMPARISON: 08/31/17 FINDINGS: The upper portion of the | RADIOLOGY VOICE | | enteric tube has expected course. The C6 spinous process fracture | RECOGNITION | | there is appreciable on the lateral view, C7 laminar fractures are | | | radiographically occult. Cervical spinal alignment is normal. The disc | | | spaces and facet joint spaces are maintained. The prevertebral and | | | para-spinal soft tissues are unremarkable. The airway is clear. | | | IMPRESSION: Normal alignment. Fractures are better evaluated | | | on prior CT. I have personally reviewed the images and, if | | | necessary, edited the report. I agree with the report as now | | | presented. | | + + + + + | Procedure Note | + + | Service Account, Radiant Res In Interface - 09/14/2017 7:23 PM PDT EXAM: SPINE | | CERVICAL 2 VIEWSHISTORY: Cervical spine fracturesCOMPARISON: 08/31/17INDINGS: The upper | | portion of the enteric tube has expected course.The C6 spinous process fracture there is | | appreciable on the lateral view, C7 laminar fractures are radiographically occult. | | Cervical spinal alignment is normal. The disc spaces and facet joint spaces are | | maintained. The prevertebral and para-spinal soft tissues are unremarkable. The airway | | is clear.IMPRESSION: Normal alignment.Fractures are better evaluated on prior CT.I have | | personally reviewed the images and, if necessary, edited the report. I agree with the | | report as now presented. | | | |The C6 spinous process fracture there is appreciable on the lateral view, C7 laminar fractu res are radiographically occult. Cervical spinal alignment is normal. The disc spaces and fa cet joint spaces are | |maintained. The prevertebral and para-spinal soft tissues are unremarkable. The airway is c lear. | | | |IMPRESSION: | | | |Normal alignment. | | | |Fractures are better evaluated on prior CT. | | | | | |I have personally reviewed the images and, if necessary, edited the report. I agree with t he report as now presented. | + + + +---------+ + + | Performing | Address | City/State/Zipcode | Phone Number | | Organization | | | | + +---------+ + + | [facility] | | | | | VOICE RECOGNITION | | | | + +---------+ + + CBC (HEMOGRAM) ONLY (09/14/2017 5:22 AM PDT) + + + + + + | Component | Value | Ref Range | Performed | Pathologist | | | | | At | Signature | + + + + + + | WHITE CELL | 10.78 | 3.50 - 10.80 | [facility] | | | COUNT | | K/cu mm | LABORATORY | | | | | | SERVICES, | | | | | | CORE | | + + + + + + | RED CELL | 4.17 (L) | 4.50 - 6.00 | [facility] | | | COUNT | | M/cu mm | LABORATORY | | | | | | SERVICES, | | | | | | CORE | | + + + + + + | HEMOGLOBIN | 12.0 (L) | 13.5 - 17.5 | [facility] | | | | | g/dL | LABORATORY | | | | | | SERVICES, | | | | | | CORE | | + + + + + + | HEMATOCRIT | 38.7 (L) | 41.0 - 53.0 % | [facility] | | | | | | LABORATORY | | | | | | SERVICES, | | | | | | CORE | | + + + + + + | MCV | 92.8 | 80.0 - 100.0 fL | [facility] | | | | | | LABORATORY | | | | | | SERVICES, | | | | | | CORE | | + + + + + + | MCHC | 31.0 (L) | 32.0 - 36.0 | [facility] | | | | | g/dL | LABORATORY | | | | | | SERVICES, | | | | | | CORE | | + + + + + + | RDW SD | 58.4 (H) | 35.1 - 46.3 fL | [facility] | | | | | | LABORATORY | | | | | | SERVICES, | | | | | | CORE | | + + + + + + | PLATELET | 522 (H) | 150 - 400 K/cu | [facility] | | | COUNT | | mm | LABORATORY | | | | | | SERVICES, | | | | | | CORE | | + + + + + + | MPV | 8.4 (L) | 9.7 - 12.3 fL | [facility] | | | | | | LABORATORY | | | | | | SERVICES, | | | | | | CORE | | + + + + + + | NRBC% | 0.0 | 0.0 - 0.3 % | [facility] | | | | | | LABORATORY | | | | | | SERVICES, | | | | | | CORE | | + + + + + + | NRBC# | 0.00 | 0.00 - 0.02 | [facility] | | | | | K/cu mm | LABORATORY | | | | | | SERVICES, | | | | | | CORE | | + + + + + + + + | Specimen | + + | Blood - Blood | | (substance) | + + + + + | Narrative | Performed At | + + + | New reference ranges for MCV, MCHC, PLT, IG% and IG# effective | [facility] | | 09/05/2017 | LABORATORY | | | [address] [place] | + + + + + + + + | Performing | Address | City/State/Zipcode | Phone Number | | Organization | | | | + + + + + | [facility] | [address] | [place] [address] | | | [address] [place] | [address] | | | + + + + + MAGNESIUM, PLASMA (09/14/2017 5:22 AM PDT) + +-------+ + + + | Component | Value | Ref Range | Performed | Pathologist | | | | | At | Signature | + +-------+ + + + | MAGNESIUM,P | 2.1 | 1.6 - 2.6 mg/dL | [facility] | | | LASMA | | | LABORATORY | | | | | | SERVICES, | | | | | | CORE | | + +-------+ + + + + + | Specimen | + + | Blood - Blood | | (substance) | + + + + + | Narrative | Performed At | + + + | Reference range change effective 12/11/16. | [facility] | | | LABORATORY | | | SERVICES, CORE | + + + + + + + + | Performing | Address | City/State/Zipcode | Phone Number | | Organization | | | | + + + + + | [facility] | [address] | [place] [address] | | | SERVICES, CORE | [address] | | | + + + + + RENAL FUNCTION SET (NA,K,CL,CO2,BUN,CREAT,GLUC,CA,PHOS,ALB ) (09/14/2017 5:22 AM PDT) + + + + + + | Component | Value | Ref Range | Performed | Pathologist | | | | | At | Signature | + + + + + + | GLUCOSE, | 99 | 70 - 99 mg/dL | [facility] | | | PLASMA | | | LABORATORY | | | (LAB) | | | SERVICES, | | | | | | CORE | | + + + + + + | BUN, PLASMA | 10 | 6 - 20 mg/dL | [facility] | | | (LAB) | | | LABORATORY | | | | | | SERVICES, | | | | | | CORE | | + + + + + + | CREATININE | 0.52 (L) | 0.70 - 1.30 | [facility] | | | PLASMA | | mg/dL | LABORATORY | | | (LAB) | | | SERVICES, | | | | | | CORE | | + + + + + + | EGFR | >60 | >60 mL/min | [facility] | | | - | | | LABORATORY | | | SUDANESE | | | SERVICES, | | | | | | CORE | | + + + + + + | EGFR NON | >60 | >60 mL/min | [facility] | | | -KAYE | | | LABORATORY | | | RICAN | | | SERVICES, | | | | | | CORE | | + + + + + + | SODIUM, | 144 | 136 - 145 | [facility] | | | PLASMA | | mmol/L | LABORATORY | | | (LAB) | | | SERVICES, | | | | | | CORE | | + + + + + + | POTASSIUM, | 3.3 (L) | 3.4 - 5.0 | [facility] | | | PLASMA | | mmol/L | LABORATORY | | | (LAB) | | | SERVICES, | | | | | | CORE | | + + + + + + | CHLORIDE, | 110 (H) | 97 - 108 mmol/L | [facility] | | | PLASMA | | | LABORATORY | | | (LAB) | | | SERVICES, | | | | | | CORE | | + + + + + + | TOTAL CO2, | 24 | 21 - 32 mmol/L | [facility] | | | PLASMA | | | LABORATORY | | | (LAB) | | | SERVICES, | | | | | | CORE | | + + + + + + | CALCIUM, | 8.3 (L) | 8.6 - 10.2 | [facility] | | | PLASMA | | mg/dL | LABORATORY | | | (LAB) | | | SERVICES, | | | | | | CORE | | + + + + + + | CALCIUM(ALB | 9.4 | 8.6 - 10.2 | [facility] | | | CORRECTED) | | mg/dL | LABORATORY | | | | | | SERVICES, | | | | | | CORE | | + + + + + + | ALBUMIN, | 2.6 (L) | 3.5 - 4.7 g/dL | [facility] | | | PLASMA | | | LABORATORY | | | (LAB) | | | SERVICES, | | | | | | CORE | | + + + + + + | PHOSPHORUS, | 3.2 | 2.4 - 4.7 mg/dL | [facility] | | | PLASMA | | | LABORATORY | | | (LAB) | | | SERVICES, | | | | | | CORE | | + + + + + + | POTASSIUM | No Hemo | | [facility] | | | CMNT | | | LABORATORY | | | | | | SERVICES, | | | | | | CORE | | + + + + + + | ANION GAP | 10 | 4 - 11 mmol/L | [facility] | | | | | | LABORATORY | | | | | | SERVICES, | | | | | | CORE | | + + + + + + | ANION | 13 (H) | 4 - 11 mmol/L | [facility] | | | GAP(ALB | | | LABORATORY | | | CORRECTED) | | | SERVICES, | | | | | | CORE | | + + + + + + + + | Specimen | + + | Blood - Blood | | (substance) | + + + + + | Narrative | Performed At | + + + | GFR is estimated using the MDRD equation recommended by the | [facility] | | National Kidney Disease Education Program. Estimated GFR | LABORATORY | | Interpretive Information: <60 mL/min/1.73 sq m | SERVICES, CORE | | Chronic Kidney Disease <15 mL/min/1.73 sq m | | | Kidney Failure Estimated GFR greater that 60 mL/min/1.73 sq m is of | | | limited clinical value. The MDRD equation is not valid in the | | | following situations: - Patients under 18 years of age - Severe | | | malnutrition or obesity - Vegetarian diet - Rapidly changing kidney | | | function - Amputees, paraplegics, or other muscle-wasting diseses | | + + + + + + + + | Performing | Address | City/State/Zipcode | Phone Number | | Organization | | | | + + + + + | [facility] | [address] | [place] [address] | | | SERVICES, CORE | [address] | | | + + + + + CBC (HEMOGRAM) ONLY (09/13/2017 6:34 AM PDT) + + + + + + | Component | Value | Ref Range | Performed | Pathologist | | | | | At | Signature | + + + + + + | WHITE CELL | 12.70 (H) | 3.50 - 10.80 | [facility] | | | COUNT | | K/cu mm | LABORATORY | | | | | | SERVICES, | | | | | | CORE | | + + + + + + | RED CELL | 4.00 (L) | 4.50 - 6.00 | [facility] | | | COUNT | | M/cu mm | LABORATORY | | | | | | SERVICES, | | | | | | CORE | | + + + + + + | HEMOGLOBIN | 11.5 (L) | 13.5 - 17.5 | [facility] | | | | | g/dL | LABORATORY | | | | | | SERVICES, | | | | | | CORE | | + + + + + + | HEMATOCRIT | 37.5 (L) | 41.0 - 53.0 % | [facility] | | | | | | LABORATORY | | | | | | SERVICES, | | | | | | CORE | | + + + + + + | MCV | 93.8 | 80.0 - 100.0 fL | [facility] | | | | | | LABORATORY | | | | | | SERVICES, | | | | | | CORE | | + + + + + + | MCHC | 30.7 (L) | 32.0 - 36.0 | [facility] | | | | | g/dL | LABORATORY | | | | | | SERVICES, | | | | | | CORE | | + + + + + + | RDW SD | 60.3 (H) | 35.1 - 46.3 fL | [facility] | | | | | | LABORATORY | | | | | | SERVICES, | | | | | | CORE | | + + + + + + | PLATELET | 490 (H) | 150 - 400 K/cu | [facility] | | | COUNT | | mm | LABORATORY | | | | | | SERVICES, | | | | | | CORE | | + + + + + + | MPV | 8.6 (L) | 9.7 - 12.3 fL | [facility] | | | | | | LABORATORY | | | | | | SERVICES, | | | | | | CORE | | + + + + + + | NRBC% | 0.0 | 0.0 - 0.3 % | [facility] | | | | | | LABORATORY | | | | | | SERVICES, | | | | | | CORE | | + + + + + + | NRBC# | 0.00 | 0.00 - 0.02 | [facility] | | | | | K/cu mm | LABORATORY | | | | | | SERVICES, | | | | | | CORE | | + + + + + + + + | Specimen | + + | Blood - Blood | | (substance) | + + + + + | Narrative | Performed At | + + + | New reference ranges for MCV, MCHC, PLT, IG% and IG# effective | [facility] | | 09/05/2017 | LABORATORY | | | NATALEE [place]INGTON | + + + + + + + + | Performing | Address | City/State/Zipcode | Phone Number | | Organization | | | | + + + + + | [facility] | [phone] | [place] [address] | | | NATALEE WORTHINGTON | [address] | | | + + + + + MAGNESIUM, PLASMA (09/13/2017 6:34 AM PDT) + +-------+ + + + | Component | Value | Ref Range | Performed | Pathologist | | | | | At | Signature | + +-------+ + + + | MAGNESIUM,P | 2.3 | 1.6 - 2.6 mg/dL | [facility] | | | LASMA | | | LABORATORY | | | | | | SERVICES, | | | | | | CORE | | + +-------+ + + + + + | Specimen | + + | Blood - Blood | | (substance) | + + + + + | Narrative | Performed At | + + + | Reference range change effective 12/11/16. | [facility] | | | LABORATORY | | | SERVICES, CORE | + + + + + + + + | Performing | Address | City/State/Zipcode | Phone Number | | Organization | | | | + + + + + | [facility] | [address] | [place] [address] | | | SERVICES, CORE | [address] | | | + + + + + RENAL FUNCTION SET (NA,K,CL,CO2,BUN,CREAT,GLUC,CA,PHOS,ALB ) (09/13/2017 6:34 AM PDT) + + + + + + | Component | Value | Ref Range | Performed | Pathologist | | | | | At | Signature | + + + + + + | GLUCOSE, | 107 (H) | 70 - 99 mg/dL | [facility] | | | PLASMA | | | LABORATORY | | | (LAB) | | | SERVICES, | | | | | | CORE | | + + + + + + | BUN, PLASMA | 11 | 6 - 20 mg/dL | [facility] | | | (LAB) | | | LABORATORY | | | | | | SERVICES, | | | | | | CORE | | + + + + + + | CREATININE | 0.52 (L) | 0.70 - 1.30 | [facility] | | | PLASMA | | mg/dL | LABORATORY | | | (LAB) | | | SERVICES, | | | | | | CORE | | + + + + + + | EGFR | >60 | >60 mL/min | [facility] | | | - | | | LABORATORY | | | SUDANESE | | | SERVICES, | | | | | | CORE | | + + + + + + | EGFR NON | >60 | >60 mL/min | [facility] | | | -KAYE | | | LABORATORY | | | RICAN | | | SERVICES, | | | | | | CORE | | + + + + + + | SODIUM, | 147 (H) | 136 - 145 | [facility] | | | PLASMA | | mmol/L | LABORATORY | | | (LAB) | | | SERVICES, | | | | | | CORE | | + + + + + + | POTASSIUM, | 3.2 (L) | 3.4 - 5.0 | [facility] | | | PLASMA | | mmol/L | LABORATORY | | | (LAB) | | | SERVICES, | | | | | | CORE | | + + + + + + | CHLORIDE, | 111 (H) | 97 - 108 mmol/L | [facility] | | | PLASMA | | | LABORATORY | | | (LAB) | | | SERVICES, | | | | | | CORE | | + + + + + + | TOTAL CO2, | 28 | 21 - 32 mmol/L | [facility] | | | PLASMA | | | LABORATORY | | | (LAB) | | | SERVICES, | | | | | | CORE | | + + + + + + | CALCIUM, | 8.3 (L) | 8.6 - 10.2 | [facility] | | | PLASMA | | mg/dL | LABORATORY | | | (LAB) | | | SERVICES, | | | | | | CORE | | + + + + + + | CALCIUM(ALB | 9.3 | 8.6 - 10.2 | [facility] | | | CORRECTED) | | mg/dL | LABORATORY | | | | | | SERVICES, | | | | | | CORE | | + + + + + + | ALBUMIN, | 2.7 (L) | 3.5 - 4.7 g/dL | [facility] | | | PLASMA | | | LABORATORY | | | (LAB) | | | SERVICES, | | | | | | CORE | | + + + + + + | PHOSPHORUS, | 3.1 | 2.4 - 4.7 mg/dL | [facility] | | | PLASMA | | | LABORATORY | | | (LAB) | | | SERVICES, | | | | | | CORE | | + + + + + + | POTASSIUM | No Hemo | | [facility] | | | CMNT | | | LABORATORY | | | | | | SERVICES, | | | | | | CORE | | + + + + + + | ANION GAP | 8 | 4 - 11 mmol/L | [facility] | | | | | | LABORATORY | | | | | | SERVICES, | | | | | | CORE | | + + + + + + | ANION | 11 | 4 - 11 mmol/L | [facility] | | | GAP(ALB | | | LABORATORY | | | CORRECTED) | | | SERVICES, | | | | | | CORE | | + + + + + + + + | Specimen | + + | Blood - Blood | | (substance) | + + + + + | Narrative | Performed At | + + + | GFR is estimated using the MDRD equation recommended by the | [facility] | | National Kidney Disease Education Program. Estimated GFR | LABORATORY | | Interpretive Information: <60 mL/min/1.73 sq m | SERVICES, CORE | | Chronic Kidney Disease <15 mL/min/1.73 sq m | | | Kidney Failure Estimated GFR greater that 60 mL/min/1.73 sq m is of | | | limited clinical value. The MDRD equation is not valid in the | | | following situations: - Patients under 18 years of age - Severe | | | malnutrition or obesity - Vegetarian diet - Rapidly changing kidney | | | function - Amputees, paraplegics, or other muscle-wasting diseses | | + + + + + + + + | Performing | Address | City/State/Zipcode | Phone Number | | Organization | | | | + + + + + | [facility] | [address] | [place] [address] | | | SERVICES, CORE | [address] | | | + + + + + X-RAY ABD LTD FEEDING TUBE EVAL (09/12/2017 6:50 AM PDT) + + | Specimen | + + | | + + + + + | Narrative | Performed At | + + + | EXAM: ABD LTD FEEDING TUBE EVAL HISTORY: Nixonff tube | [facility] | | placement. COMPARISON: 09/10/2017. FINDINGS/IMPRESSION: Tip | RADIOLOGY VOICE | | of the weighted tip feeding tube is at the 1st portion of the | RECOGNITION | | duodenum with functional sidehole in the region of the pylorus/gastric | | | antrum, unchanged in position. Enteric tube is unchanged in position | | | with proximal side hole at the gastric fundus. Surgical fernandez | | | project over the central abdomen. There is a paucity of gas in the | | | abdomen without evidence of obstruction. No free air identified. Clips | | | project over the left upper quadrant. I have personally | | | reviewed the images and, if necessary, edited the report. I agree | | | with the report as now presented. | | + + + + + | Procedure Note | + + | Service Account, Hickies Res In Interface - 09/12/2017 9:13 AM PDT EXAM: ABD LTD | | FEEDING TUBE EVALHISTORY: Dobbhoff tube placement.COMPARISON: | | 09/10/2017.FINDINGS/IMPRESSION:Tip of the weighted tip feeding tube is at the 1st portion | | of the duodenum with functional sidehole in the region of the pylorus/gastric antrum, | | unchanged in position. Enteric tube is unchanged in position with proximal side hole at | | the gastric fundus. Surgical fernandez project over the central abdomen. There is a | | paucity of gas in the abdomen without evidence of obstruction. No free air identified. | | Clips project over the left upper quadrant.I have personally reviewed the images and, if | | necessary, edited the report. I agree with the report as now presented. | |side hole at the gastric fundus. Surgical fernandez project over the central abdomen. There i s a paucity of gas in the abdomen without evidence of obstruction. No free air identified. C lips project over the left upper quadrant. | | | | | |I have personally reviewed the images and, if necessary, edited the report. I agree with t he report as now presented. | + + + +---------+ + + | Performing | Address | City/State/Zipcode | Phone Number | | Organization | | | | + +---------+ + + | [facility] | | | | | VOICE RECOGNITION | | | | + +---------+ + + CBC (HEMOGRAM) ONLY (09/12/2017 6:33 AM PDT) + + + + + + | Component | Value | Ref Range | Performed | Pathologist | | | | | At | Signature | + + + + + + | WHITE CELL | 18.79 (H) | 3.50 - 10.80 | [facility] | | | COUNT | | K/cu mm | LABORATORY | | | | | | SERVICES, | | | | | | CORE | | + + + + + + | RED CELL | 3.75 (L) | 4.50 - 6.00 | [facility] | | | COUNT | | M/cu mm | LABORATORY | | | | | | SERVICES, | | | | | | CORE | | + + + + + + | HEMOGLOBIN | 10.9 (L) | 13.5 - 17.5 | [facility] | | | | | g/dL | LABORATORY | | | | | | SERVICES, | | | | | | CORE | | + + + + + + | HEMATOCRIT | 34.5 (L) | 41.0 - 53.0 % | [facility] | | | | | | LABORATORY | | | | | | SERVICES, | | | | | | CORE | | + + + + + + | MCV | 92.0 | 80.0 - 100.0 fL | [facility] | | | | | | LABORATORY | | | | | | SERVICES, | | | | | | CORE | | + + + + + + | MCHC | 31.6 (L) | 32.0 - 36.0 | [facility] | | | | | g/dL | LABORATORY | | | | | | SERVICES, | | | | | | CORE | | + + + + + + | RDW SD | 59.3 (H) | 35.1 - 46.3 fL | [facility] | | | | | | LABORATORY | | | | | | SERVICES, | | | | | | CORE | | + + + + + + | PLATELET | 449 (H) | 150 - 400 K/cu | [facility] | | | COUNT | | mm | LABORATORY | | | | | | SERVICES, | | | | | | CORE | | + + + + + + | MPV | 8.6 (L) | 9.7 - 12.3 fL | [facility] | | | | | | LABORATORY | | | | | | SERVICES, | | | | | | CORE | | + + + + + + | NRBC% | 0.0 | 0.0 - 0.3 % | [facility] | | | | | | LABORATORY | | | | | | SERVICES, | | | | | | CORE | | + + + + + + | NRBC# | 0.00 | 0.00 - 0.02 | [facility] | | | | | K/cu mm | LABORATORY | | | | | | SERVICES, | | | | | | CORE | | + + + + + + + + | Specimen | + + | Blood - Blood | | (substance) | + + + + + | Narrative | Performed At | + + + | New reference ranges for MCV, MCHC, PLT, IG% and IG# effective | [facility] | | 09/05/2017 | LABORATORY | | | SERVICES, CORE | + + + + + + + + | Performing | Address | City/State/Zipcode | Phone Number | | Organization | | | | + + + + + | [facility] | [phone] | [place] [address] | | | SERVICES, CORE | [address] | | | + + + + + MAGNESIUM, PLASMA (09/12/2017 6:33 AM PDT) + +-------+ + + + | Component | Value | Ref Range | Performed | Pathologist | | | | | At | Signature | + +-------+ + + + | MAGNESIUM,P | 2.3 | 1.6 - 2.6 mg/dL | [facility] | | | LISA | | | LABORATORY | | | | | | ELIN, | | | | | | CORE | | + +-------+ + + + + + | Specimen | + + | Blood - Blood | | (substance) | + + + + + | Narrative | Performed At | + + + | Reference range change effective 12/11/16. | [facility] | | | LABORATORY | | | NATALEE [address] | + + + + + + + + | Performing | Address | City/State/Zipcode | Phone Number | | Organization | | | | + + + + + | [facility] | [phone] | [place] [address] | | | SERVICES, NATALEE | [address] | | | + + + + + RENAL FUNCTION SET (NA,K,CL,CO2,BUN,CREAT,GLUC,CA,PHOS,ALB ) (09/12/2017 6:33 AM PDT) + + + + + + | Component | Value | Ref Range | Performed | Pathologist | | | | | At | Signature | + + + + + + | GLUCOSE, | 122 (H) | 70 - 99 mg/dL | [facility] | | | PLASMA | | | LABORATORY | | | (LAB) | | | SERVICES, | | | | | | CORE | | + + + + + + | BUN, PLASMA | 14 | 6 - 20 mg/dL | [facility] | | | (LAB) | | | LABORATORY | | | | | | SERVICES, | | | | | | CORE | | + + + + + + | CREATININE | 0.53 (L) | 0.70 - 1.30 | [facility] | | | PLASMA | | mg/dL | LABORATORY | | | (LAB) | | | SERVICES, | | | | | | CORE | | + + + + + + | EGFR | >60 | >60 mL/min | [facility] | | | - | | | LABORATORY | | | S[facility]AN[facility] | | | SERVICES, | | | | | | CORE | | + + + + + + | EGFR NON | >60 | >60 mL/min | [facility] | | | -KAYE | | | LABORATORY | | | RICAN | | | SERVICES, | | | | | | CORE | | + + + + + + | SODIUM, | 147 (H) | 136 - 145 | [facility] | | | PLASMA | | mmol/L | LABORATORY | | | (LAB) | | | SERVICES, | | | | | | CORE | | + + + + + + | POTASSIUM, | 3.2 (L) | 3.4 - 5.0 | [facility] | | | PLASMA | | mmol/L | LABORATORY | | | (LAB) | | | SERVICES, | | | | | | CORE | | + + + + + + | CHLORIDE, | 109 (H) | 97 - 108 mmol/L | [facility] | | | PLASMA | | | LABORATORY | | | (LAB) | | | SERVICES, | | | | | | CORE | | + + + + + + | TOTAL CO2, | 29 | 21 - 32 mmol/L | [facility] | | | PLASMA | | | LABORATORY | | | (LAB) | | | SERVICES, | | | | | | CORE | | + + + + + + | CALCIUM, | 8.4 (L) | 8.6 - 10.2 | [facility] | | | PLASMA | | mg/dL | LABORATORY | | | (LAB) | | | SERVICES, | | | | | | CORE | | + + + + + + | CALCIUM(ALB | 9.4 | 8.6 - 10.2 | [facility] | | | CORRECTED) | | mg/dL | LABORATORY | | | | | | SERVICES, | | | | | | CORE | | + + + + + + | ALBUMIN, | 2.7 (L) | 3.5 - 4.7 g/dL | [facility] | | | PLASMA | | | LABORATORY | | | (LAB) | | | SERVICES, | | | | | | CORE | | + + + + + + | PHOSPHORUS, | 3.7 | 2.4 - 4.7 mg/dL | [facility] | | | PLASMA | | | LABORATORY | | | (LAB) | | | SERVICES, | | | | | | CORE | | + + + + + + | POTASSIUM | No Hemo | | [facility] | | | CMNT | | | LABORATORY | | | | | | SERVICES, | | | | | | CORE | | + + + + + + | ANION GAP | 9 | 4 - 11 mmol/L | [facility] | | | | | | LABORATORY | | | | | | SERVICES, | | | | | | CORE | | + + + + + + | ANION | 12 (H) | 4 - 11 mmol/L | [facility] | | | GAP(ALB | | | LABORATORY | | | CORRECTED) | | | SERVICES, | | | | | | CORE | | + + + + + + + + | Specimen | + + | Blood - Blood | | (substance) | + + + + + | Narrative | Performed At | + + + | GFR is estimated using the MDRD equation recommended by the | [facility] | | National Kidney Disease Education Program. Estimated GFR | LABORATORY | | Interpretive Information: <60 mL/min/1.73 sq m | SERVICES, CORE | | Chronic Kidney Disease <15 mL/min/1.73 sq m | | | Kidney Failure Estimated GFR greater that 60 mL/min/1.73 sq m is of | | | limited clinical value. The MDRD equation is not valid in the | | | following situations: - Patients under 18 years of age - Severe | | | malnutrition or obesity - Vegetarian diet - Rapidly changing kidney | | | function - Amputees, paraplegics, or other muscle-wasting diseses | | + + + + + + + + | Performing | Address | City/State/Zipcode | Phone Number | | Organization | | | | + + + + + | [facility] | [address] | [place] [address] | | | SERVICES, CORE | [address] | | | + + + + + CT HEAD WO CONTRAST (09/12/2017 4:52 AM PDT) + + | Specimen | + + | | + + + + + | Narrative | Performed At | + + + | EXAM: CT head without contrast HISTORY: Follow-up intracranial | [facility] | | hemorrhage COMPARISON: None TECHNIQUE: CT of the head without | RADIOLOGY VOICE | | contrast. FINDINGS: Brain: Again seen are postsurgical changes | RECOGNITION | | right cranioplasty. The right cerebral convexity extra-axial fluid | | | collection underlying the cranioplasty site is not significantly | | | changed in size measuring 12 mm in thickness, previously 11 mm with | | | stable local mass effect and is stable 3 mm leftward midline shift. | | | Interval decrease in size of the right extracranial fluid collection | | | now measuring 6 mm, previously 12 mm. No new hemorrhage or | | | territorial infarction. The ventricles are unchanged in size. | | | Redemonstration of right temporal parietal encephalomalacia. | | | Scattered maxillary, lateral and sphenoid sinus mucosal thickening, | | | decreased compared to prior. 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 IMPRESSION: Stable | | | extra-axial fluid collection deep to the right cranioplasty site with | | | unchanged local mass effect and 3 mm leftward midline shift. | | | Interval decrease in size of extra-axial fluid collection overlying | | | the right cranioplasty site. I have personally reviewed the | | | images and, if necessary, edited the report. I agree with the report | | | as now presented. | | + + + + + | Procedure Note | + + | Service Account, Radiant Res In Interface - 09/12/2017 6:48 AM PDT EXAM: CT head | | without contrastHISTORY: Follow-up intracranial hemorrhageCOMPARISON: NoneTECHNIQUE: CT | | of the head without contrast.FINDINGS:Brain: Again seen are postsurgical changes right | | cranioplasty. The right cerebral convexity extra-axial fluid collection underlying the | | cranioplasty site is not significantly changed in size measuring 12 mm in thickness, | | previously 11 mm with stable local mass effect and is stable 3 mm leftward midline | | shift. Interval decrease in size of the right extracranial fluid collection now | | measuring 6 mm, previously 12 mm. No new hemorrhage or territorial infarction. The | | ventricles are unchanged in size. Redemonstration of right temporal parietal | | encephalomalacia.Scattered maxillary, lateral and sphenoid sinus mucosal thickening, | | decreased compared to prior. 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 I agree with the report as now presented. | |IMPRESSION: | | | |Stable extra-axial fluid collection deep to the right cranioplasty site with unchanged loca l mass effect and 3 mm leftward midline shift. | | | |Interval decrease in size of extra-axial fluid collection overlying the right cranioplasty site. | | | | | |I have personally reviewed the images and, if necessary, edited the report. I agree with t he report as now presented. | + + + +---------+ + + | Performing | Address | City/State/Zipcode | Phone Number | | Organization | | | | + +---------+ + + | [facility] | | | | | VOICE RECOGNITION | | | | + +---------+ + + CT CHEST, ABDOMEN AND PELVIS W IV CONTRAST (09/11/2017 1:23 PM PDT) + + | Specimen | + + | | + + + + + | Narrative | Performed At | + + + | EXAM: CT of the chest, abdomen and pelvis with intravenous | [facility] | | contrast. HISTORY: Prior trauma. Rising white count | RADIOLOGY VOICE | | COMPARISON: 08/31/17 CT TECHNIQUE: CT of the chest, abdomen and | RECOGNITION | | pelvis with non-ionic iodinated intravenous contrast. Coronal and | | | sagittal reformats were created. FINDINGS: CHEST: The | | | visualized thyroid is normal. There is no axillary, hilar or | | | mediastinal adenopathy. The heart size is normal. There is no | | | pericardial effusion. The aorta is unremarkable. Posterior left | | | lower lobe consolidation with volume loss and internal air | | | bronchograms are noted. Mild bibasilar posterior tree in bud and | | | groundglass nodularity is also present. Additionally, there are | | | multifocal areas of groundglass changes and early consolidation | | | involving the left upper lobe as well as the right upper and right | | | lower lobes. Previously seen left-sided chest tube has been removed. | | | There is no pneumothorax. No pleural effusion. LIVER: | | | Unremarkable. BILIARY: Cholelithiasis PANCREAS: Unremarkable. | | | SPLEEN: A small amount of intermediate density perisplenic fluid is | | | noted, likely blood products. A small cleft at the posterior spleen | | | (4/36) likely represents a small less than 1 cm laceration, this was | | | not evident on the prior CT. Tiny metallic density focus within the | | | left upper quadrant is new since the prior CT. ADRENALS: | | | Unremarkable. KIDNEYS/URETERS: Unremarkable. PELVIC ORGANS/BLADDER: | | | Unremarkable. GI TRACT: Unremarkable. PERITONEUM: Small amount of | | | fluid is present at the right lower quadrant. Interval closure of the | | | midline defect and resolution of previously seen ventral hernia. | | | Amount of fat stranding, likely postsurgical LYMPH NODES: No | | | lymphadenopathy. VESSELS: Unremarkable. BONES AND SOFT TISSUES: | | | Proximal left humerus fracture, multilevel left-sided rib fractures, | | | T1 and T2 spinous process fractures, as well as T4 and T12 vertebral | | | body fractures, and left pelvic fractures involving the inferior and | | | superior pubic rami and left sacroiliac joint. Left femoral | | | intramedullary nail noted. IMPRESSION: 1. Pulmonary findings | | | concerning for developing multifocal pneumonia with possible | | | aspiration. Left lower lobe consolidation likely atelectasis, | | | superimposed infection is possible. 2. Small splenic laceration | | | with small perisplenic hematoma. 3. Small amount of free right | | | lower quadrant fluid. No intra-abdominal source of infection is | | | evident. 4. Multiple fractures as previously described. I | | | have personally reviewed the images and, if necessary, edited the | | | report. I agree with the report as now presented. | | + + + + + | Procedure Note | + + | Service Account, Radiant Res In Interface - 09/11/2017 6:22 PM PDT EXAM: CT of the | | chest, abdomen and pelvis with intravenous contrast.HISTORY: Prior trauma. Rising white | | countCOMPARISON: 08/31/17 CTTECHNIQUE: CT of the chest, abdomen and pelvis with non-ionic | | iodinated intravenous contrast. Coronal and sagittal reformats were | | created.FINDINGS:CHEST: The visualized thyroid is normal. There is no axillary, hilar or | | mediastinal adenopathy. The heart size is normal. There is no pericardial effusion. The | | aorta is unremarkable.Posterior left lower lobe consolidation with volume loss and | | internal air bronchograms are noted. Mild bibasilar posterior tree in bud and | | groundglass nodularity is also present. Additionally, there are multifocal areas of | | groundglass changes and early consolidation involving the left upper lobe as well as the | | right upper and right lower lobes. Previously seen left-sided chest tube has been | | removed. There is no pneumothorax. No pleural effusion.LIVER: Unremarkable.BILIARY: | | CholelithiasisPANCREAS: Unremarkable.SPLEEN: A small amount of intermediate density | | perisplenic fluid is noted, likely blood products. A small cleft at the posterior spleen | | (4/36) likely represents a small less than 1 cm laceration, this was not evident on the | | prior CT. Tiny metallic density focus within the left upper quadrant is new since the | | prior CT.ADRENALS: Unremarkable.KIDNEYS/URETERS: Unremarkable.PELVIC ORGANS/BLADDER: | | Unremarkable.GI TRACT: Unremarkable.PERITONEUM: Small amount of fluid is present at the | | right lower quadrant. Interval closure of the midline defect and resolution of | | previously seen ventral hernia. Amount of fat stranding, likely postsurgicalLYMPH NODES: | | No lymphadenopathy.VESSELS: Unremarkable.BONES AND SOFT TISSUES: Proximal left humerus | | fracture, multilevel left-sided rib fractures, T1 and T2 spinous process fractures, as | | well as T4 and T12 vertebral body fractures, and left pelvic fractures involving the | | inferior and superior pubic rami and left sacroiliac joint. Left femoral intramedullary | | nail noted.IMPRESSION: 1. Pulmonary findings concerning for developing multifocal | | pneumonia with possible aspiration. Left lower lobe consolidation likely atelectasis, | | superimposed infection is possible.2. Small splenic laceration with small perisplenic | | hematoma.3. Small amount of free right lower quadrant fluid. No intra-abdominal source | | of infection is evident.4. Multiple fractures as previously described.I have personally | | reviewed the images and, if necessary, edited the report. I agree with the report as | | now presented. | |BONES AND SOFT TISSUES: Proximal left humerus fracture, multilevel left-sided rib fractures , T1 and T2 spinous process fractures, as well as T4 and T12 vertebral body fractures, and l eft pelvic fractures involving | |the inferior and superior pubic rami and left sacroiliac joint. Left femoral intramedullary nail noted. | | | |IMPRESSION: | | | |1. Pulmonary findings concerning for developing multifocal pneumonia with possible aspirati on. Left lower lobe consolidation likely atelectasis, superimposed infection is possible. | | | |2. Small splenic laceration with small perisplenic hematoma. | | | |3. Small amount of free right lower quadrant fluid. No intra-abdominal source of infection is evident. | | | |4. Multiple fractures as previously described. | | | | | |I have personally reviewed the images and, if necessary, edited the report. I agree with t he report as now presented. | + + + +---------+ + + | Performing | Address | City/State/Zipcode | Phone Number | | Organization | | | | + +---------+ + + | [facility] | | | | | VOICE RECOGNITION | | | | + +---------+ + + CBC (HEMOGRAM) ONLY (09/11/2017 7:12 AM PDT) + + + + + + | Component | Value | Ref Range | Performed | Pathologist | | | | | At | Signature | + + + + + + | WHITE CELL | 21.53 (H) | 3.50 - 10.80 | [facility] | | | COUNT | | K/cu mm | LABORATORY | | | | | | SERVICES, | | | | | | CORE | | + + + + + + | RED CELL | 4.00 (L) | 4.50 - 6.00 | [facility] | | | COUNT | | M/cu mm | LABORATORY | | | | | | SERVICES, | | | | | | CORE | | + + + + + + | HEMOGLOBIN | 11.4 (L) | 13.5 - 17.5 | [facility] | | | | | g/dL | LABORATORY | | | | | | SERVICES, | | | | | | CORE | | + + + + + + | HEMATOCRIT | 36.3 (L) | 41.0 - 53.0 % | [facility] | | | | | | LABORATORY | | | | | | SERVICES, | | | | | | CORE | | + + + + + + | MCV | 90.8 | 80.0 - 100.0 fL | [facility] | | | | | | LABORATORY | | | | | | SERVICES, | | | | | | CORE | | + + + + + + | MCHC | 31.4 (L) | 32.0 - 36.0 | [facility] | | | | | g/dL | LABORATORY | | | | | | SERVICES, | | | | | | CORE | | + + + + + + | RDW SD | 55.0 (H) | 35.1 - 46.3 fL | [facility] | | | | | | LABORATORY | | | | | | SERVICES, | | | | | | CORE | | + + + + + + | PLATELET | 450 (H) | 150 - 400 K/cu | [facility] | | | COUNT | | mm | LABORATORY | | | | | | SERVICES, | | | | | | CORE | | + + + + + + | MPV | 8.7 (L) | 9.7 - 12.3 fL | [facility] | | | | | | LABORATORY | | | | | | SERVICES, | | | | | | CORE | | + + + + + + | NRBC% | 0.0 | 0.0 - 0.3 % | [facility] | | | | | | LABORATORY | | | | | | SERVICES, | | | | | | CORE | | + + + + + + | NRBC# | 0.00 | 0.00 - 0.02 | [facility] | | | | | K/cu mm | LABORATORY | | | | | | SERVICES, | | | | | | CORE | | + + + + + + + + | Specimen | + + | Blood - Blood | | (substance) | + + + + + | Narrative | Performed At | + + + | New reference ranges for MCV, MCHC, PLT, IG% and IG# effective | [facility] | | 09/05/2017 | LABORATORY | | | NATALEE WORTHINGTON | + + + + + + + + | Performing | Address | City/State/Zipcode | Phone Number | | Organization | | | | + + + + + | [facility] | [address] | [place] [address] | | | NATALEE WORTHINGTON | [address] | | | + + + + + MAGNESIUM, PLASMA (09/11/2017 7:12 AM PDT) + +---------+ + + + | Component | Value | Ref Range | Performed | Pathologist | | | | | At | Signature | + +---------+ + + + | MAGNESIUM,P | 2.7 (H) | 1.6 - 2.6 mg/dL | [facility] | | | LASMA | | | LABORATORY | | | | | | SERVICES, | | | | | | CORE | | + +---------+ + + + + + | Specimen | + + | Blood - Blood | | (substance) | + + + + + | Narrative | Performed At | + + + | Reference range change effective 12/11/16. | [facility] | | | LABORATORY | | | ELIN, NATALEE | + + + + + + + + | Performing | Address | City/State/Zipcode | Phone Number | | Organization | | | | + + + + + | [facility] | [address] | [place] [address] | | | NATALEE WORTHINGTON | [address] | | | + + + + + RENAL FUNCTION SET (NA,K,CL,CO2,BUN,CREAT,GLUC,CA,PHOS,ALB ) (09/11/2017 7:12 AM PDT) + + + + + + | Component | Value | Ref Range | Performed | Pathologist | | | | | At | Signature | + + + + + + | GLUCOSE, | 131 (H) | 70 - 99 mg/dL | [facility] | | | PLASMA | | | LABORATORY | | | (LAB) | | | SERVICES, | | | | | | CORE | | + + + + + + | BUN, PLASMA | 19 | 6 - 20 mg/dL | [facility] | | | (LAB) | | | LABORATORY | | | | | | SERVICES, | | | | | | CORE | | + + + + + + | CREATININE | 0.56 (L) | 0.70 - 1.30 | [facility] | | | PLASMA | | mg/dL | LABORATORY | | | (LAB) | | | SERVICES, | | | | | | CORE | | + + + + + + | EGFR | >60 | >60 mL/min | [facility] | | | - | | | LABORATORY | | | SUDANESE | | | SERVICES, | | | | | | CORE | | + + + + + + | EGFR NON | >60 | >60 mL/min | [facility] | | | -KAYE | | | LABORATORY | | | RICAN | | | SERVICES, | | | | | | CORE | | + + + + + + | SODIUM, | 144 | 136 - 145 | [facility] | | | PLASMA | | mmol/L | LABORATORY | | | (LAB) | | | SERVICES, | | | | | | CORE | | + + + + + + | POTASSIUM, | 3.6 | 3.4 - 5.0 | [facility] | | | PLASMA | | mmol/L | LABORATORY | | | (LAB) | | | SERVICES, | | | | | | CORE | | + + + + + + | CHLORIDE, | 107 | 97 - 108 mmol/L | [facility] | | | PLASMA | | | LABORATORY | | | (LAB) | | | SERVICES, | | | | | | CORE | | + + + + + + | TOTAL CO2, | 28 | 21 - 32 mmol/L | [facility] | | | PLASMA | | | LABORATORY | | | (LAB) | | | SERVICES, | | | | | | CORE | | + + + + + + | CALCIUM, | 8.5 (L) | 8.6 - 10.2 | [facility] | | | PLASMA | | mg/dL | LABORATORY | | | (LAB) | | | SERVICES, | | | | | | CORE | | + + + + + + | CALCIUM(ALB | 9.5 | 8.6 - 10.2 | [facility] | | | CORRECTED) | | mg/dL | LABORATORY | | | | | | SERVICES, | | | | | | CORE | | + + + + + + | ALBUMIN, | 2.8 (L) | 3.5 - 4.7 g/dL | [facility] | | | PLASMA | | | LABORATORY | | | (LAB) | | | SERVICES, | | | | | | CORE | | + + + + + + | PHOSPHORUS, | 3.8 | 2.4 - 4.7 mg/dL | [facility] | | | PLASMA | | | LABORATORY | | | (LAB) | | | SERVICES, | | | | | | CORE | | + + + + + + | POTASSIUM | No Hemo | | [facility] | | | CMNT | | | LABORATORY | | | | | | SERVICES, | | | | | | CORE | | + + + + + + | ANION GAP | 9 | 4 - 11 mmol/L | [facility] | | | | | | LABORATORY | | | | | | SERVICES, | | | | | | CORE | | + + + + + + | ANION | 12 (H) | 4 - 11 mmol/L | [facility] | | | GAP(ALB | | | LABORATORY | | | CORRECTED) | | | SERVICES, | | | | | | CORE | | + + + + + + + + | Specimen | + + | Blood - Blood | | (substance) | + + + + + | Narrative | Performed At | + + + | GFR is estimated using the MDRD equation recommended by the | [facility] | | National Kidney Disease Education Program. Estimated GFR | LABORATORY | | Interpretive Information: <60 mL/min/1.73 sq m | SERVICES, CORE | | Chronic Kidney Disease <15 mL/min/1.73 sq m | | | Kidney Failure Estimated GFR greater that 60 mL/min/1.73 sq m is of | | | limited clinical value. The MDRD equation is not valid in the | | | following situations: - Patients under 18 years of age - Severe | | | malnutrition or obesity - Vegetarian diet - Rapidly changing kidney | | | function - Amputees, paraplegics, or other muscle-wasting diseses | | + + + + + + + + | Performing | Address | City/State/Zipcode | Phone Number | | Organization | | | | + + + + + | [facility] | [address] | [place] [address] | | | SERVICES, CORE | [address] | | | + + + + + RAINBOW HOLD TUBE - GREEN TOP (09/10/2017 2:15 PM PDT) + + | Specimen | + + | Blood - Blood | | (substance) | + + + + + + + | Performing | Address | City/State/Zipcode | Phone Number | | Organization | | | | + + + + + | [facility] | [address] | [place] [address] | | | SERVICES, [facility] | [address] | | | + + + + + X-RAY ABD LTD FEEDING TUBE EVAL (09/10/2017 12:44 PM PDT) + + | Specimen | + + | | + + + + + | Narrative | Performed At | + + + | INDICATION: DHT placement TECHNIQUE: Upright portable view of | [facility] | | the upper abdomen. Comparison: 09/09/2017 at 10:10 PM. | RADIOLOGY VOICE | | FINDINGS/IMPRESSION: Tip of esophagogastric tube is located in | RECOGNITION 2 | | the mid stomach. Tip of the Dobbhoff tube located in the distal | | | stomach/first portion duodenum. No free air. I have personally | | | reviewed the images and, if necessary, edited the report. I agree with | | | the report as now presented. Final signature: Prabhakar Trejo | | 09/10/2017 2:08 PM Created by: Edelmira Parsons MD | | + + + + + | Procedure Note | + + | Nette Galeas, Radiant Res In Interface - 09/10/2017 2:08 PM PDT INDICATION: DHT | | placement TECHNIQUE: Upright portable view of the upper abdomen. Comparison: 09/09/2017 | | at 10:10 PM. FINDINGS/IMPRESSION: Tip of esophagogastric tube is located in the mid | | stomach. Tip of the Dobbhoff tube located in the distal stomach/first portion duodenum. | | No free air. I have personally reviewed the images and, if necessary, edited the report. | | I agree with the report as now presented. Final signature: Edelmira Parsons MD | | 09/10/2017 2:08 PM Created by: Edelmira Parsons MD | | | |Tip of esophagogastric tube is located in the mid stomach. Tip of the Dobbhoff tube located in the distal stomach/first portion duodenum. No free air. | | | |I have personally reviewed the images and, if necessary, edited the report. I agree with th e report as now presented. | | | |Final signature: Edelmira Parsons MD 09/10/2017 2:08 PM | |Created by: Edelmira Parsons MD | + + + +---------+ + + | Performing | Address | City/State/Zipcode | Phone Number | | Organization | | | | + +---------+ + + | [facility] | | | | | VOICE RECOGNITION 2 | | | | + +---------+ + + VASC LAB VENOUS DUPLEX LOWER EXTREMITY BILAT COMP (09/10/2017 10:56 AM PDT) + + | Specimen | + + | | + + + + + | Narrative | Performed At | + + + | Bilateral: The duplex scanner was used to examine the deep and | [facility] | | superficial veins of the right and left lower extremities. The | RADIOLOGY VASC | | veins are patent bilaterally with normal flow and responses to | US | | augmentation and compression maneuvers and no thrombus is noted. | | | Conclusions: A normal venous examination of the bilateral lower | | | extremities. No venous thrombosis was detected. I have | | | personally reviewed the images and, if necessary, edited the report. | | | I agree with the report as now presented. | | + + + + + | Procedure Note | + + | Service Account, Hickies Res In Interface - 09/10/2017 2:31 PM PDT Bilateral: The | | duplex scanner was used to examine the deep and superficial veins of the right and left | | lower extremities. The veins are patent bilaterally with normal flow and responses to | | augmentation and compression maneuvers and no thrombus is noted.Conclusions: A normal | | venous examination of the bilateral lower extremities. No venous thrombosis was | | detected.I have personally reviewed the images and, if necessary, edited the report. I | | agree with the report as now presented. | | | | | |I have personally reviewed the images and, if necessary, edited the report. I agree with t he report as now presented. | + + + +---------+ + + | Performing | Address | City/State/Zipcode | Phone Number | | Organization | | | | + +---------+ + + | [facility] | | | | | VASC US | | | | + +---------+ + + X-RAY PORTABLE CHEST 1 VIEW (09/10/2017 7:16 AM PDT) + + | Specimen | + + | | + + + + + | Narrative | Performed At | + + + | STUDY: CO CHEST 1 VIEW 09/10/17 07:02:01 HISTORY: Possible | [facility] | | aspiration COMPARISON: 09/07/17 FINDINGS: Enteric tube | RADIOLOGY VOICE | | terminates below the diaphragm. The cardiac silhouette is normal in | RECOGNITION | | size. Lung volumes are low with scattered atelectasis. There are | | | mildly increased perihilar groundglass opacities. No pneumothorax is | | | present. Left humeral fracture is partially imaged. IMPRESSION: | | | Mildly increased perihilar groundglass opacification, possibly | | | worsening atelectasis or mild aspiration/retained secretions. | | | I have personally reviewed the images and, if necessary, edited | | | the report. I agree with the report as now presented. | | + + + + + | Procedure Note | + + | Service Account, Radiant Res In Interface - 09/10/2017 9:25 AM PDT STUDY: CO CHEST 1 | | VIEW 09/10/17 07:02:01 HISTORY: Possible aspirationCOMPARISON: 09/07/17INDINGS: Enteric | | tube terminates below the diaphragm. The cardiac silhouette is normal in size. Lung | | volumes are low with scattered atelectasis. There are mildly increased perihilar | | groundglass opacities. No pneumothorax is present. Left humeral fracture is partially | | imaged.IMPRESSION: Mildly increased perihilar groundglass opacification, possibly | | worsening atelectasis or mild aspiration/retained secretions.I have personally reviewed | | the images and, if necessary, edited the report. I agree with the report as now | | presented. | | | |IMPRESSION: | | | |Mildly increased perihilar groundglass opacification, possibly worsening atelectasis or mil d aspiration/retained secretions. | | | | | | | | | |I have personally reviewed the images and, if necessary, edited the report. I agree with t he report as now presented. | + + + +---------+ + + | Performing | Address | City/State/Zipcode | Phone Number | | Organization | | | | + +---------+ + + | [facility] | | | | | VOICE RECOGNITION | | | | + +---------+ + + LIPASE, PLASMA (09/10/2017 5:08 AM PDT) + +-------+ + + + | Component | Value | Ref Range | Performed | Pathologist | | | | | At | Signature | + +-------+ + + + | LIPASE | 232 | 152 - 353 U/L | [facility] | | | (LAB) | | | LABORATORY | | | | | | SERVICES, | | | | | | CORE | | + +-------+ + + + + + | Specimen | + + | Blood - Blood | | (substance) | + + + + + + + | Performing | Address | City/State/Zipcode | Phone Number | | Organization | | | | + + + + + | [facility] | [address] | [place] [address] | | | SERVICES, CORE | [address] | | | + + + + + AMYLASE, PLASMA (09/10/2017 5:08 AM PDT) + +-------+ + + + | Component | Value | Ref Range | Performed | Pathologist | | | | | At | Signature | + +-------+ + + + | AMYLASE,RAFAEL | 58 | 25 - 115 U/L | [facility] | | | SMA | | | LABORATORY | | | | | | SERVICES, | | | | | | CORE | | + +-------+ + + + + + | Specimen | + + | Blood - Blood | | (substance) | + + + + + + + | Performing | Address | City/State/Zipcode | Phone Number | | Organization | | | | + + + + + | [facility] | [address] | [place] [address] | | | SERVICES, CORE | [address] | | | + + + + + CBC (HEMOGRAM) ONLY (09/10/2017 5:08 AM PDT) + + + + + + | Component | Value | Ref Range | Performed | Pathologist | | | | | At | Signature | + + + + + + | WHITE CELL | 26.66 (H) | 3.50 - 10.80 | [facility] | | | COUNT | | K/cu mm | LABORATORY | | | | | | SERVICES, | | | | | | CORE | | + + + + + + | RED CELL | 3.90 (L) | 4.50 - 6.00 | [facility] | | | COUNT | | M/cu mm | LABORATORY | | | | | | SERVICES, | | | | | | CORE | | + + + + + + | HEMOGLOBIN | 11.3 (L) | 13.5 - 17.5 | [facility] | | | | | g/dL | LABORATORY | | | | | | SERVICES, | | | | | | CORE | | + + + + + + | HEMATOCRIT | 34.5 (L) | 41.0 - 53.0 % | [facility] | | | | | | LABORATORY | | | | | | SERVICES, | | | | | | CORE | | + + + + + + | MCV | 88.5 | 80.0 - 100.0 fL | [facility] | | | | | | LABORATORY | | | | | | SERVICES, | | | | | | CORE | | + + + + + + | MCHC | 32.8 | 32.0 - 36.0 | [facility] | | | | | g/dL | LABORATORY | | | | | | SERVICES, | | | | | | CORE | | + + + + + + | RDW SD | 50.6 (H) | 35.1 - 46.3 fL | [facility] | | | | | | LABORATORY | | | | | | SERVICES, | | | | | | CORE | | + + + + + + | PLATELET | 387 | 150 - 400 K/cu | [facility] | | | COUNT | | mm | LABORATORY | | | | | | SERVICES, | | | | | | CORE | | + + + + + + | MPV | 9.1 (L) | 9.7 - 12.3 fL | [facility] | | | | | | LABORATORY | | | | | | SERVICES, | | | | | | CORE | | + + + + + + | NRBC% | 0.0 | 0.0 - 0.3 % | [facility] | | | | | | LABORATORY | | | | | | SERVICES, | | | | | | CORE | | + + + + + + | NRBC# | 0.00 | 0.00 - 0.02 | [facility] | | | | | K/cu mm | LABORATORY | | | | | | SERVICES, | | | | | | CORE | | + + + + + + + + | Specimen | + + | Blood - Blood | | (substance) | + + + + + | Narrative | Performed At | + + + | New reference ranges for MCV, MCHC, PLT, IG% and IG# effective | [facility] | | 09/06/2107 | LABORATORY | | | SERVICES, CORE | + + + + + + + + | Performing | Address | City/State/Zipcode | Phone Number | | Organization | | | | + + + + + | [facility] | [address] | [place] [address] | | | SERVICES, CORE | [address] | | | + + + + + MAGNESIUM, PLASMA (09/10/2017 5:08 AM PDT) + +-------+ + + + | Component | Value | Ref Range | Performed | Pathologist | | | | | At | Signature | + +-------+ + + + | MAGNESIUM,P | 2.1 | 1.6 - 2.6 mg/dL | [facility] | | | LASMA | | | LABORATORY | | | | | | ELIN, | | | | | | CORE | | + +-------+ + + + + + | Specimen | + + | Blood - Blood | | (substance) | + + + + + | Narrative | Performed At | + + + | Reference range change effective 12/11/16. | [facility] | | | LABORATORY | | | SERVICES, CORE | + + + + + + + + | Performing | Address | City/State/Zipcode | Phone Number | | Organization | | | | + + + + + | [facility] | [address] | [place] [address] | | | SERVICES, CORE | [address] | | | + + + + + RENAL FUNCTION SET (NA,K,CL,CO2,BUN,CREAT,GLUC,CA,PHOS,ALB ) (09/10/2017 5:08 AM PDT) + + + + + + | Component | Value | Ref Range | Performed | Pathologist | | | | | At | Signature | + + + + + + | GLUCOSE, | 127 (H) | 70 - 99 mg/dL | [facility] | | | PLASMA | | | LABORATORY | | | (LAB) | | | SERVICES, | | | | | | CORE | | + + + + + + | BUN, PLASMA | 13 | 6 - 20 mg/dL | [facility] | | | (LAB) | | | LABORATORY | | | | | | SERVICES, | | | | | | CORE | | + + + + + + | CREATININE | 0.49 (L) | 0.70 - 1.30 | [facility] | | | PLASMA | | mg/dL | LABORATORY | | | (LAB) | | | SERVICES, | | | | | | CORE | | + + + + + + | EGFR | >60 | >60 mL/min | [facility] | | | - | | | LABORATORY | | | SUDANESE | | | SERVICES, | | | | | | CORE | | + + + + + + | EGFR NON | >60 | >60 mL/min | [facility] | | | -KAYE | | | LABORATORY | | | RICAN | | | SERVICES, | | | | | | CORE | | + + + + + + | SODIUM, | 143 | 136 - 145 | [facility] | | | PLASMA | | mmol/L | LABORATORY | | | (LAB) | | | SERVICES, | | | | | | CORE | | + + + + + + | POTASSIUM, | 3.6 | 3.4 - 5.0 | [facility] | | | PLASMA | | mmol/L | LABORATORY | | | (LAB) | | | SERVICES, | | | | | | CORE | | + + + + + + | CHLORIDE, | 106 | 97 - 108 mmol/L | [facility] | | | PLASMA | | | LABORATORY | | | (LAB) | | | SERVICES, | | | | | | CORE | | + + + + + + | TOTAL CO2, | 26 | 21 - 32 mmol/L | [facility] | | | PLASMA | | | LABORATORY | | | (LAB) | | | SERVICES, | | | | | | CORE | | + + + + + + | CALCIUM, | 8.7 | 8.6 - 10.2 | [facility] | | | PLASMA | | mg/dL | LABORATORY | | | (LAB) | | | SERVICES, | | | | | | CORE | | + + + + + + | CALCIUM(ALB | 9.7 | 8.6 - 10.2 | [facility] | | | CORRECTED) | | mg/dL | LABORATORY | | | | | | SERVICES, | | | | | | CORE | | + + + + + + | ALBUMIN, | 2.8 (L) | 3.5 - 4.7 g/dL | [facility] | | | PLASMA | | | LABORATORY | | | (LAB) | | | SERVICES, | | | | | | CORE | | + + + + + + | PHOSPHORUS, | 3.5 | 2.4 - 4.7 mg/dL | [facility] | | | PLASMA | | | LABORATORY | | | (LAB) | | | SERVICES, | | | | | | CORE | | + + + + + + | POTASSIUM | No Hemo | | [facility] | | | CMNT | | | LABORATORY | | | | | | SERVICES, | | | | | | CORE | | + + + + + + | ANION GAP | 11 | 4 - 11 mmol/L | [facility] | | | | | | LABORATORY | | | | | | SERVICES, | | | | | | CORE | | + + + + + + | ANION | 14 (H) | 4 - 11 mmol/L | [facility] | | | GAP(ALB | | | LABORATORY | | | CORRECTED) | | | SERVICES, | | | | | | CORE | | + + + + + + + + | Specimen | + + | Blood - Blood | | (substance) | + + + + + | Narrative | Performed At | + + + | GFR is estimated using the MDRD equation recommended by the | [facility] | | National Kidney Disease Education Program. Estimated GFR | LABORATORY | | Interpretive Information: <60 mL/min/1.73 sq m | SERVICES, CORE | | Chronic Kidney Disease <15 mL/min/1.73 sq m | | | Kidney Failure Estimated GFR greater that 60 mL/min/1.73 sq m is of | | | limited clinical value. The MDRD equation is not valid in the | | | following situations: - Patients under 18 years of age - Severe | | | malnutrition or obesity - Vegetarian diet - Rapidly changing kidney | | | function - Amputees, paraplegics, or other muscle-wasting diseses | | + + + + + + + + | Performing | Address | City/State/Zipcode | Phone Number | | Organization | | | | + + + + + | [facility] | [address] | [place] [address] | | | ELIN, NATALEE | [address] | | | + + + + + 12 LEAD ECG (09/10/2017 1:08 AM PDT) + + + + + + | Component | Value | Ref Range | Performed | Pathologist | | | | | At | Signature | + + + + + + | VENTRICULAR | 120 | bpm | [facility] | | | RATE | | | OF | | | | | | CARDIOLOGY | | + + + + + + | ATRIAL RATE | 120 | ms | [facility] | | | | | | OF | | | | | | CARDIOLOGY | | + + + + + + | P-R | 119 | ms | [facility] | | | INTERVAL | | | OF | | | | | | CARDIOLOGY | | + + + + + + | P AXIS | 50 | deg | [facility] | | | | | | OF | | | | | | CARDIOLOGY | | + + + + + + | QRS | 119 | ms | [facility] | | | DURATION | | | OF | | | | | | CARDIOLOGY | | + + + + + + | QT | 346 | ms | [facility] | | | | | | OF | | | | | | CARDIOLOGY | | + + + + + + | QTC-BAZETT | 489 | ms | [facility] | | | | | | OF | | | | | | CARDIOLOGY | | + + + + + + | R AXIS | 104 | deg | [facility] | | | | | | OF | | | | | | CARDIOLOGY | | + + + + + + | T AXIS | 30 | deg | [facility] | | | | | | OF | | | | | | CARDIOLOGY | | + + + + + + | ECG | Sinus tachycardia | | [facility] | | | IMPRESSION | | | OF | | | | | | CARDIOLOGY | | + + + + + + | ECG | Right bundle branch | | [facility] | | | IMPRESSION | block | | OF | | | | | | CARDIOLOGY | | + + + + + + | ECG | ST elevation, consider | | [facility] | | | IMPRESSION | inferior injury | | OF | | | | | | CARDIOLOGY | | + + + + + + | ECG | Borderline prolonged QT | | [facility] | | | IMPRESSION | interval- ABNORMAL ECG - | | OF | | | | | | CARDIOLOGY | | + + + + + + | ECG | Electronically signed | | [facility] | | | IMPRESSION | by: JULIO VIZCAINO | | OF | | | | 09-10-2017 07:45:43 | | CARDIOLOGY | | + + + + + + + + | Specimen | + + | | + + + + + | Narrative | Performed At | + + + | | | + + + + + + + + | Performing | Address | City/State/Zipcode | Phone Number | | Organization | | | | + + + + + | [facility] | [address] | [place], [place] | | | CARDIOLOGY | [address] | [address] | | + + + + + X-RAY ABD LTD FEEDING TUBE EVAL PORTABLE (09/09/2017 10:15 PM PDT) + + | Specimen | + + | | + + + + + | Narrative | Performed At | + + + | INDICATION: feeding tube placement TECHNIQUE: Supine portable | [facility] | | view of the upper abdomen. Comparison: 09/08/2017. | RADIOLOGY VOICE | | FINDINGS/IMPRESSION: Tip of esophagogastric tube is located in | RECOGNITION 2 | | the distal stomach. No evidence of bowel obstruction. Partial | | | visualization of ventral surgical staple line. I have personally | | | reviewed the images and, if necessary, edited the report. I agree with | | | the report as now presented. Final signature: Edelmira Parsons, | | | 09/10/2017 11:11 AM Created by: Edelmira Parsons MD | | + + + + + | Procedure Note | + + | Service Account, [employer] In Interface - 09/10/2017 11:11 AM PDT INDICATION: | | feeding tube placement TECHNIQUE: Supine portable view of the upper abdomen. Comparison: | | 09/08/2017. FINDINGS/IMPRESSION: Tip of esophagogastric tube is located in the distal | | stomach. No evidence of bowel obstruction. Partial visualization of ventral surgical | | staple line. I have personally reviewed the images and, if necessary, edited the report. | | I agree with the report as now presented. Final signature: Edelmira Parsons MD | | 09/10/2017 11:11 AM Created by: Edelmira Parsons MD | | | |Tip of esophagogastric tube is located in the distal stomach. No evidence of bowel obstruct ion. Partial visualization of ventral surgical staple line. | | | |I have personally reviewed the images and, if necessary, edited the report. I agree with th e report as now presented. | | | |Final signature: Edelmira Parsons MD 09/10/2017 11:11 AM | |Created by: Edelmira Parsons MD | + + + +---------+ + + | Performing | Address | City/State/Zipcode | Phone Number | | Organization | | | | + +---------+ + + | [facility] | | | | | VOICE RECOGNITION 2 | | | | + +---------+ + + CAPILLARY BLOOD GLUCOSE (NO CHG), POC (09/09/2017 11:50 AM PDT) + +---------+ + + + | Component | Value | Ref Range | Performed | Pathologist | | | | | At | Signature | + +---------+ + + + | BLOOD | 150 (H) | 70 - 99 mg/dL | [facility] - | | | GLUCOSE, | | | [facility] | | | POC | | | [facility] | | | | | | OF CARE | | | | | | TESTS | | + +---------+ + + + + + | Specimen | + + | | + + + + + + + | Performing | Address | City/State/Zipcode | Phone Number | | Organization | | | | + + + + + | [facility] | [address] | [place], [place] | | | [facility] | [address] | [address] | | | TESTS | | | | + + + + + MAGNESIUM, PLASMA (09/09/2017 3:50 AM PDT) + +-------+ + + + | Component | Value | Ref Range | Performed | Pathologist | | | | | At | Signature | + +-------+ + + + | MAGNESIUM,P | 2.0 | 1.6 - 2.6 mg/dL | [facility] | | | LASMA | | | LABORATORY | | | | | | SERVICES, | | | | | | CORE | | + +-------+ + + + + + | Specimen | + + | Blood - Blood | | (substance) | + + + + + | Narrative | Performed At | + + + | Reference range change effective 12/11/16. | [facility] | | | LABORATORY | | | SERVICES, CORE | + + + + + + + + | Performing | Address | City/State/Zipcode | Phone Number | | Organization | | | | + + + + + | [facility] | [address] | [place] [address] | | | SERVICES, CORE | [address] | | | + + + + + CBC (HEMOGRAM) ONLY (09/09/2017 3:50 AM PDT) + + + + + + | Component | Value | Ref Range | Performed | Pathologist | | | | | At | Signature | + + + + + + | WHITE CELL | 8.64 | 3.50 - 10.80 | [facility] | | | COUNT | | K/cu mm | LABORATORY | | | | | | SERVICES, | | | | | | CORE | | + + + + + + | RED CELL | 3.54 (L) | 4.50 - 6.00 | [facility] | | | COUNT | | M/cu mm | LABORATORY | | | | | | SERVICES, | | | | | | CORE | | + + + + + + | HEMOGLOBIN | 10.2 (L) | 13.5 - 17.5 | [facility] | | | | | g/dL | LABORATORY | | | | | | SERVICES, | | | | | | CORE | | + + + + + + | HEMATOCRIT | 31.0 (L) | 41.0 - 53.0 % | [facility] | | | | | | LABORATORY | | | | | | SERVICES, | | | | | | CORE | | + + + + + + | MCV | 87.6 | 80.0 - 100.0 fL | [facility] | | | | | | LABORATORY | | | | | | SERVICES, | | | | | | CORE | | + + + + + + | MCHC | 32.9 | 32.0 - 36.0 | [facility] | | | | | g/dL | LABORATORY | | | | | | SERVICES, | | | | | | CORE | | + + + + + + | RDW SD | 48.9 (H) | 35.1 - 46.3 fL | [facility] | | | | | | LABORATORY | | | | | | SERVICES, | | | | | | CORE | | + + + + + + | PLATELET | 268 | 150 - 400 K/cu | [facility] | | | COUNT | | mm | LABORATORY | | | | | | SERVICES, | | | | | | CORE | | + + + + + + | MPV | 8.9 (L) | 9.7 - 12.3 fL | [facility] | | | | | | LABORATORY | | | | | | SERVICES, | | | | | | CORE | | + + + + + + | NRBC% | 0.0 | 0.0 - 0.3 % | [facility] | | | | | | LABORATORY | | | | | | SERVICES, | | | | | | CORE | | + + + + + + | NRBC# | 0.00 | 0.00 - 0.02 | [facility] | | | | | K/cu mm | LABORATORY | | | | | | SERVICES, | | | | | | CORE | | + + + + + + + + | Specimen | + + | Blood - Blood | | (substance) | + + + + + | Narrative | Performed At | + + + | New reference ranges for MCV, MCHC, PLT, IG% and IG# effective | [facility] | | 09/06/2107 | LABORATORY | | | [facility] [address] | + + + + + + + + | Performing | Address | City/State/Zipcode | Phone Number | | Organization | | | | + + + + + | [facility] | [address] | [place] [address] | | | NATALEE [place] | [address] | | | + + + + + RENAL FUNCTION SET (NA,K,CL,CO2,BUN,CREAT,GLUC,CA,PHOS,ALB ) (09/09/2017 3:50 AM PDT) + + + + + + | Component | Value | Ref Range | Performed | Pathologist | | | | | At | Signature | + + + + + + | GLUCOSE, | 105 (H) | 70 - 99 mg/dL | [facility] | | | PLASMA | | | LABORATORY | | | (LAB) | | | SERVICES, | | | | | | CORE | | + + + + + + | BUN, PLASMA | 11 | 6 - 20 mg/dL | [facility] | | | (LAB) | | | LABORATORY | | | | | | SERVICES, | | | | | | CORE | | + + + + + + | CREATININE | 0.42 (L) | 0.70 - 1.30 | [facility] | | | PLASMA | | mg/dL | LABORATORY | | | (LAB) | | | SERVICES, | | | | | | CORE | | + + + + + + | EGFR | >60 | >60 mL/min | [facility] | | | - | | | LABORATORY | | | SUDANESE | | | SERVICES, | | | | | | CORE | | + + + + + + | EGFR NON | >60 | >60 mL/min | [facility] | | | -KAYE | | | LABORATORY | | | RICAN | | | SERVICES, | | | | | | CORE | | + + + + + + | SODIUM, | 141 | 136 - 145 | [facility] | | | PLASMA | | mmol/L | LABORATORY | | | (LAB) | | | SERVICES, | | | | | | CORE | | + + + + + + | POTASSIUM, | 3.4 | 3.4 - 5.0 | [facility] | | | PLASMA | | mmol/L | LABORATORY | | | (LAB) | | | SERVICES, | | | | | | CORE | | + + + + + + | CHLORIDE, | 109 (H) | 97 - 108 mmol/L | [facility] | | | PLASMA | | | LABORATORY | | | (LAB) | | | SERVICES, | | | | | | CORE | | + + + + + + | TOTAL CO2, | 23 | 21 - 32 mmol/L | [facility] | | | PLASMA | | | LABORATORY | | | (LAB) | | | SERVICES, | | | | | | CORE | | + + + + + + | CALCIUM, | 7.9 (L) | 8.6 - 10.2 | [facility] | | | PLASMA | | mg/dL | LABORATORY | | | (LAB) | | | SERVICES, | | | | | | CORE | | + + + + + + | CALCIUM(ALB | 9.0 | 8.6 - 10.2 | [facility] | | | CORRECTED) | | mg/dL | LABORATORY | | | | | | SERVICES, | | | | | | CORE | | + + + + + + | ALBUMIN, | 2.6 (L) | 3.5 - 4.7 g/dL | [facility] | | | PLASMA | | | LABORATORY | | | (LAB) | | | SERVICES, | | | | | | CORE | | + + + + + + | PHOSPHORUS, | 3.3 | 2.4 - 4.7 mg/dL | [facility] | | | PLASMA | | | LABORATORY | | | (LAB) | | | SERVICES, | | | | | | CORE | | + + + + + + | POTASSIUM | No Hemo | | [facility] | | | CMNT | | | LABORATORY | | | | | | SERVICES, | | | | | | CORE | | + + + + + + | ANION GAP | 9 | 4 - 11 mmol/L | [facility] | | | | | | LABORATORY | | | | | | SERVICES, | | | | | | CORE | | + + + + + + | ANION | 12 (H) | 4 - 11 mmol/L | [facility] | | | GAP(ALB | | | LABORATORY | | | CORRECTED) | | | SERVICES, | | | | | | CORE | | + + + + + + + + | Specimen | + + | Blood - Blood | | (substance) | + + + + + | Narrative | Performed At | + + + | GFR is estimated using the MDRD equation recommended by the | [facility] | | National Kidney Disease Education Program. Estimated GFR | LABORATORY | | Interpretive Information: <60 mL/min/1.73 sq m | SERVICES, CORE | | Chronic Kidney Disease <15 mL/min/1.73 sq m | | | Kidney Failure Estimated GFR greater that 60 mL/min/1.73 sq m is of | | | limited clinical value. The MDRD equation is not valid in the | | | following situations: - Patients under 18 years of age - Severe | | | malnutrition or obesity - Vegetarian diet - Rapidly changing kidney | | | function - Amputees, paraplegics, or other muscle-wasting diseses | | + + + + + + + + | Performing | Address | City/State/Zipcode | Phone Number | | Organization | | | | + + + + + | [facility] | [address] | [place] [address] | | | NATALEE WORTHINGTON | [address] | | | + + + + + CBC (HEMOGRAM) ONLY (09/08/2017 10:55 AM PDT) + + + + + + | Component | Value | Ref Range | Performed | Pathologist | | | | | At | Signature | + + + + + + | WHITE CELL | 8.72 | 3.50 - 10.80 | [facility] | | | COUNT | | K/cu mm | LABORATORY | | | | | | SERVICES, | | | | | | CORE | | + + + + + + | RED CELL | 3.49 (L) | 4.50 - 6.00 | [facility] | | | COUNT | | M/cu mm | LABORATORY | | | | | | SERVICES, | | | | | | CORE | | + + + + + + | HEMOGLOBIN | 10.0 (L) | 13.5 - 17.5 | [facility] | | | | | g/dL | LABORATORY | | | | | | SERVICES, | | | | | | CORE | | + + + + + + | HEMATOCRIT | 30.5 (L) | 41.0 - 53.0 % | [facility] | | | | | | LABORATORY | | | | | | SERVICES, | | | | | | CORE | | + + + + + + | MCV | 87.4 | 80.0 - 100.0 fL | [facility] | | | | | | LABORATORY | | | | | | SERVICES, | | | | | | CORE | | + + + + + + | MCHC | 32.8 | 32.0 - 36.0 | [facility] | | | | | g/dL | LABORATORY | | | | | | SERVICES, | | | | | | CORE | | + + + + + + | RDW SD | 48.5 (H) | 35.1 - 46.3 fL | [facility] | | | | | | LABORATORY | | | | | | SERVICES, | | | | | | CORE | | + + + + + + | PLATELET | 205 | 150 - 400 K/cu | [facility] | | | COUNT | | mm | LABORATORY | | | | | | SERVICES, | | | | | | CORE | | + + + + + + | MPV | 9.4 (L) | 9.7 - 12.3 fL | [facility] | | | | | | LABORATORY | | | | | | SERVICES, | | | | | | CORE | | + + + + + + | NRBC% | 0.0 | 0.0 - 0.3 % | [facility] | | | | | | LABORATORY | | | | | | SERVICES, | | | | | | CORE | | + + + + + + | NRBC# | 0.00 | 0.00 - 0.02 | [facility] | | | | | K/cu mm | LABORATORY | | | | | | SERVICES, | | | | | | CORE | | + + + + + + + + | Specimen | + + | Blood - Blood | | (substance) | + + + + + | Narrative | Performed At | + + + | New reference ranges for MCV, MCHC, PLT, IG% and IG# effective | [facility] | | 09/06/2107 | LABORATORY | | | SERVICES, CORE | + + + + + + + + | Performing | Address | City/State/Zipcode | Phone Number | | Organization | | | | + + + + + | [facility] | [address] | [place] [address] | | | SERVICES, CORE | [address] | | | + + + + + RENAL FUNCTION SET (NA,K,CL,CO2,BUN,CREAT,GLUC,CA,PHOS,ALB ) (09/08/2017 10:55 AM PDT) + + + + + + | Component | Value | Ref Range | Performed | Pathologist | | | | | At | Signature | + + + + + + | GLUCOSE, | 133 (H) | 70 - 99 mg/dL | [facility] | | | PLASMA | | | LABORATORY | | | (LAB) | | | SERVICES, | | | | | | CORE | | + + + + + + | BUN, PLASMA | 10 | 6 - 20 mg/dL | [facility] | | | (LAB) | | | LABORATORY | | | | | | SERVICES, | | | | | | CORE | | + + + + + + | CREATININE | 0.37 (L) | 0.70 - 1.30 | [facility] | | | PLASMA | | mg/dL | LABORATORY | | | (LAB) | | | SERVICES, | | | | | | CORE | | + + + + + + | EGFR | >60 | >60 mL/min | [facility] | | | - | | | LABORATORY | | | SUDANESE | | | SERVICES, | | | | | | CORE | | + + + + + + | EGFR NON | >60 | >60 mL/min | [facility] | | | -KAYE | | | LABORATORY | | | RICAN | | | SERVICES, | | | | | | CORE | | + + + + + + | SODIUM, | 141 | 136 - 145 | [facility] | | | PLASMA | | mmol/L | LABORATORY | | | (LAB) | | | SERVICES, | | | | | | CORE | | + + + + + + | POTASSIUM, | 3.3 (L) | 3.4 - 5.0 | [facility] | | | PLASMA | | mmol/L | LABORATORY | | | (LAB) | | | SERVICES, | | | | | | CORE | | + + + + + + | CHLORIDE, | 107 | 97 - 108 mmol/L | [facility] | | | PLASMA | | | LABORATORY | | | (LAB) | | | SERVICES, | | | | | | CORE | | + + + + + + | TOTAL CO2, | 27 | 21 - 32 mmol/L | [facility] | | | PLASMA | | | LABORATORY | | | (LAB) | | | SERVICES, | | | | | | CORE | | + + + + + + | CALCIUM, | 8.0 (L) | 8.6 - 10.2 | [facility] | | | PLASMA | | mg/dL | LABORATORY | | | (LAB) | | | SERVICES, | | | | | | CORE | | + + + + + + | CALCIUM(ALB | 9.2 | 8.6 - 10.2 | [facility] | | | CORRECTED) | | mg/dL | LABORATORY | | | | | | SERVICES, | | | | | | CORE | | + + + + + + | ALBUMIN, | 2.5 (L) | 3.5 - 4.7 g/dL | [facility] | | | PLASMA | | | LABORATORY | | | (LAB) | | | SERVICES, | | | | | | CORE | | + + + + + + | PHOSPHORUS, | 2.5 | 2.4 - 4.7 mg/dL | [facility] | | | PLASMA | | | LABORATORY | | | (LAB) | | | SERVICES, | | | | | | CORE | | + + + + + + | POTASSIUM | No Hemo | | [facility] | | | CMNT | | | LABORATORY | | | | | | SERVICES, | | | | | | CORE | | + + + + + + | ANION GAP | 7 | 4 - 11 mmol/L | [facility] | | | | | | LABORATORY | | | | | | SERVICES, | | | | | | CORE | | + + + + + + | ANION | 10 | 4 - 11 mmol/L | [facility] | | | GAP(ALB | | | LABORATORY | | | CORRECTED) | | | SERVICES, | | | | | | CORE | | + + + + + + + + | Specimen | + + | Blood - Blood | | (substance) | + + + + + | Narrative | Performed At | + + + | GFR is estimated using the MDRD equation recommended by the | [facility] | | National Kidney Disease Education Program. Estimated GFR | LABORATORY | | Interpretive Information: <60 mL/min/1.73 sq m | SERVICES, CORE | | Chronic Kidney Disease <15 mL/min/1.73 sq m | | | Kidney Failure Estimated GFR greater that 60 mL/min/1.73 sq m is of | | | limited clinical value. The MDRD equation is not valid in the | | | following situations: - Patients under 18 years of age - Severe | | | malnutrition or obesity - Vegetarian diet - Rapidly changing kidney | | | function - Amputees, paraplegics, or other muscle-wasting diseses | | + + + + + + + + | Performing | Address | City/State/Zipcode | Phone Number | | Organization | | | | + + + + + | [facility] | [address] | [place] [address] | | | ELIN, CORE | [address] | | | + + + + + AMMONIA, PLASMA (09/08/2017 10:55 AM PDT) + +--------+ + + + | Component | Value | Ref Range | Performed | Pathologist | | | | | At | Signature | + +--------+ + + + | AMMONIA | 38 (H) | 11 - 35 umol/L | [facility] | | | (LAB) | | | LABORATORY | | | | | | SERVICES, | | | | | | CORE | | + +--------+ + + + + + | Specimen | + + | Blood - Blood | | (substance) | + + + + + + + | Performing | Address | City/State/Zipcode | Phone Number | | Organization | | | | + + + + + | [facility] | [address] | [place] [address] | | | SERVICES, CORE | [address] | | | + + + + + LIVER SET (AST,ALT,BILI TOTAL,BILI DIRECT,ALK PHOS,ALB,PROT TOTAL) (09/08/2017 10:55 AM PDT ) + +---------+ + + + | Component | Value | Ref Range | Performed | Pathologist | | | | | At | Signature | + +---------+ + + + | ALBUMIN, | 2.5 (L) | 3.5 - 4.7 g/dL | [facility] | | | PLASMA | | | LABORATORY | | | (LAB) | | | SERVICES, | | | | | | CORE | | + +---------+ + + + | BILIRUBIN | 1.9 (H) | 0.3 - 1.2 mg/dL | [facility] | | | TOTAL | | | LABORATORY | | | | | | SERVICES, | | | | | | CORE | | + +---------+ + + + | BILIRUBIN | 0.6 (H) | 0.0 - 0.3 mg/dL | [facility] | | | DIRECT | | | LABORATORY | | | | | | SERVICES, | | | | | | CORE | | + +---------+ + + + | ALK PHOS | 134 (H) | 56 - 119 U/L | [facility] | | | | | | LABORATORY | | | | | | SERVICES, | | | | | | CORE | | + +---------+ + + + | AST(SGOT) | 27 | <=41 U/L | [facility] | | | | | | LABORATORY | | | | | | SERVICES, | | | | | | CORE | | + +---------+ + + + | ALT (SGPT) | 23 | <=60 U/L | [facility] | | | | | | LABORATORY | | | | | | SERVICES, | | | | | | CORE | | + +---------+ + + + | TOTAL | 6.4 | 6.4 - 8.2 g/dL | [facility] | | | PROTEIN, | | | LABORATORY | | | PLASMA | | | SERVICES, | | | (LAB) | | | CORE | | + +---------+ + + + | AST CMNT | No Hemo | | [facility] | | | | | | LABORATORY | | | | | | SERVICES, | | | | | | CORE | | + +---------+ + + + | BILI T CMNT | No Hemo | | [facility] | | | | | | LABORATORY | | | | | | SERVICES, | | | | | | CORE | | + +---------+ + + + | BILI D CMNT | No Hemo | | [facility] | | | | | | LABORATORY | | | | | | SERVICES, | | | | | | CORE | | + +---------+ + + + + + | Specimen | + + | Blood - Blood | | (substance) | + + + + + + + | Performing | Address | City/State/Zipcode | Phone Number | | Organization | | | | + + + + + | [facility] | [address] | [place] [address] | | | SERVICES, CORE | [address] | | | + + + + + X-RAY ABD LTD FEEDING TUBE EVAL (09/08/2017 4:38 AM PDT) + + | Specimen | + + | | + + + + + | Narrative | Performed At | + + + | EXAM: ABD LTD FEEDING TUBE EVAL 09/08/17 04:04:50 COMPARISON: | [facility] | | 09/06/17 FINDINGS: Feeding tube has been placed with it's tip | RADIOLOGY VOICE | | projecting in the gastric pylorus or first portion of duodenum. | RECOGNITION | | Evaluation of the lungs is limited as technique was tailored for | | | feeding tube placement. IMPRESSION: Feeding tube tip | | | projecting in the gastric pylorus or first portion of duodenum. | | | I have personally reviewed the images and, if necessary, edited the | | | report. I agree with the report as now presented. | | + + + + + | Procedure Note | + + | Service Account, Radiant Res In Interface - 09/08/2017 10:56 AM PDT EXAM: ABD LTD | | FEEDING TUBE EVAL 09/08/17 04:04:50 COMPARISON: 09/06/17INDINGS: Feeding tube has been | | placed with it's tip projecting in the gastric pylorus or first portion of duodenum. | | Evaluation of the lungs is limited as technique was tailored for feeding tube | | placement.IMPRESSION: Feeding tube tip projecting in the gastric pylorus or first | | portion of duodenum.I have personally reviewed the images and, if necessary, edited the | | report. I agree with the report as now presented. | | | |Feeding tube tip projecting in the gastric pylorus or first portion of duodenum. | | | | | |I have personally reviewed the images and, if necessary, edited the report. I agree with t he report as now presented. | + + + +---------+ + + | Performing | Address | City/State/Zipcode | Phone Number | | Organization | | | | + +---------+ + + | [facility] | | | | | VOICE RECOGNITION | | | | + +---------+ + + 12 LEAD ECG (09/07/2017 11:56 AM PDT) + + + + + + | Component | Value | Ref Range | Performed | Pathologist | | | | | At | Signature | + + + + + + | VENTRICULAR | 102 | bpm | [facility] | | | RATE | | | OF | | | | | | CARDIOLOGY | | + + + + + + | ATRIAL RATE | 103 | ms | [facility] | | | | | | OF | | | | | | CARDIOLOGY | | + + + + + + | P-R | 142 | ms | [facility] | | | INTERVAL | | | OF | | | | | | CARDIOLOGY | | + + + + + + | P AXIS | 86 | deg | [facility] | | | | | | OF | | | | | | CARDIOLOGY | | + + + + + + | QRS | 123 | ms | [facility] | | | DURATION | | | OF | | | | | | CARDIOLOGY | | + + + + + + | QT | 363 | ms | [facility] | | | | | | OF | | | | | | CARDIOLOGY | | + + + + + + | QTC-BAZETT | 473 | ms | [facility] | | | | | | OF | | | | | | CARDIOLOGY | | + + + + + + | R AXIS | 92 | deg | [facility] | | | | | | OF | | | | | | CARDIOLOGY | | + + + + + + | T AXIS | 51 | deg | [facility] | | | | | | OF | | | | | | CARDIOLOGY | | + + + + + + | ECG | Sinus tachycardia | | [facility] | | | IMPRESSION | | | OF | | | | | | CARDIOLOGY | | + + + + + + | ECG | Right bundle branch | | [facility] | | | IMPRESSION | block- ABNORMAL ECG - | | OF | | | | | | CARDIOLOGY | | + + + + + + | ECG | Electronically signed | | [facility] | | | IMPRESSION | by: PAULO CAVAZOS | | OF | | | | 09-07-2017 12:22:02 | | CARDIOLOGY | | + + + + + + + + | Specimen | + + | | + + + + + | Narrative | Performed At | + + + | | | + + + + + + + + | Performing | Address | City/State/Zipcode | Phone Number | | Organization | | | | + + + + + | [facility] | [address] | [place], [place] | | | CARDIOLOGY | [address] | [address] | | + + + + + X-RAY PORTABLE CHEST 1 VIEW (09/07/2017 6:12 AM PDT) + + | Specimen | + + | | + + + + + | Narrative | Performed At | + + + | EXAM: CO CHEST 1 VIEW HISTORY: Post extubation COMPARISON: | [facility] | | 09/05/17 FINDINGS: Interval extubation. Enteric tube has been | RADIOLOGY VOICE | | replaced with weighted tip Dobbhoff, incompletely imaged. C. collar | RECOGNITION | | remains in place. Cardiomediastinal silhouette is unchanged. Lower | | | lung volumes persist. Slight improvement of perihilar and bibasilar | | | atelectasis. No pulmonary edema or focal consolidation. No | | | pneumothorax. Persistent blunting of the right costophrenic angle | | | related to small pleural effusion. IMPRESSION: Support | | | equipment as above. Persistent low lung volume with slight | | | improvement of perihilar and bibasilar atelectasis. I have | | | personally reviewed the images and, if necessary, edited the report. | | | I agree with the report as now presented. | | + + + + + | Procedure Note | + + | Service Account, Radiant Res In Interface - 09/07/2017 10:46 AM PDT EXAM: CO CHEST 1 | | VIEWHISTORY: Post extubationCOMPARISON: 09/05/17INDINGS: Interval extubation. Enteric | | tube has been replaced with weighted tip Dobbhoff, incompletely imaged. C. collar | | remains in place. Cardiomediastinal silhouette is unchanged. Lower lung volumes persist. | | Slight improvement of perihilar and bibasilar atelectasis. No pulmonary edema or focal | | consolidation. No pneumothorax. Persistent blunting of the right costophrenic angle | | related to small pleural effusion.IMPRESSION: Support equipment as above.Persistent low | | lung volume with slight improvement of perihilar and bibasilar atelectasis.I have | | personally reviewed the images and, if necessary, edited the report. I agree with the | | report as now presented. | |IMPRESSION: | | | |Support equipment as above. | | | |Persistent low lung volume with slight improvement of perihilar and bibasilar atelectasis. | | | | | |I have personally reviewed the images and, if necessary, edited the report. I agree with t he report as now presented. | + + + +---------+ + + | Performing | Address | City/State/Zipcode | Phone Number | | Organization | | | | + +---------+ + + | [facility] | | | | | VOICE RECOGNITION | | | | + +---------+ + + CBC (HEMOGRAM) ONLY (09/07/2017 1:00 AM PDT) + + + + + + | Component | Value | Ref Range | Performed | Pathologist | | | | | At | Signature | + + + + + + | WHITE CELL | 8.28 | 3.50 - 10.80 | [facility] | | | COUNT | | K/cu mm | LABORATORY | | | | | | SERVICES, | | | | | | CORE | | + + + + + + | RED CELL | 3.31 (L) | 4.50 - 6.00 | [facility] | | | COUNT | | M/cu mm | LABORATORY | | | | | | SERVICES, | | | | | | CORE | | + + + + + + | HEMOGLOBIN | 9.6 (L) | 13.5 - 17.5 | [facility] | | | | | g/dL | LABORATORY | | | | | | SERVICES, | | | | | | CORE | | + + + + + + | HEMATOCRIT | 29.1 (L) | 41.0 - 53.0 % | [facility] | | | | | | LABORATORY | | | | | | SERVICES, | | | | | | CORE | | + + + + + + | MCV | 87.9 | 80.0 - 100.0 fL | [facility] | | | | | | LABORATORY | | | | | | SERVICES, | | | | | | CORE | | + + + + + + | MCHC | 33.0 | 32.0 - 36.0 | [facility] | | | | | g/dL | LABORATORY | | | | | | SERVICES, | | | | | | CORE | | + + + + + + | RDW SD | 47.7 (H) | 35.1 - 46.3 fL | [facility] | | | | | | LABORATORY | | | | | | SERVICES, | | | | | | CORE | | + + + + + + | PLATELET | 141 (L) | 150 - 400 K/cu | [facility] | | | COUNT | | mm | LABORATORY | | | | | | SERVICES, | | | | | | CORE | | + + + + + + | MPV | 8.9 (L) | 9.7 - 12.3 fL | [facility] | | | | | | LABORATORY | | | | | | SERVICES, | | | | | | CORE | | + + + + + + | NRBC% | 0.0 | 0.0 - 0.3 % | [facility] | | | | | | LABORATORY | | | | | | SERVICES, | | | | | | CORE | | + + + + + + | NRBC# | 0.00 | 0.00 - 0.02 | [facility] | | | | | K/cu mm | LABORATORY | | | | | | SERVICES, | | | | | | CORE | | + + + + + + + + | Specimen | + + | Blood - Blood | | (substance) | + + + + + | Narrative | Performed At | + + + | New reference ranges for MCV, MCHC, PLT, IG% and IG# effective | [facility] | | 09/06/2107 | LABORATORY | | | SERVICES, CORE | + + + + + + + + | Performing | Address | City/State/Zipcode | Phone Number | | Organization | | | | + + + + + | [facility] | [address] | [place] [address] | | | SERVICES, [place] | [address] | | | + + + + + RENAL FUNCTION SET (NA,K,CL,CO2,BUN,CREAT,GLUC,CA,PHOS,ALB ) (09/07/2017 1:00 AM PDT) + + + + + + | Component | Value | Ref Range | Performed | Pathologist | | | | | At | Signature | + + + + + + | GLUCOSE, | 126 (H) | 70 - 99 mg/dL | [facility] | | | PLASMA | | | LABORATORY | | | (LAB) | | | SERVICES, | | | | | | CORE | | + + + + + + | BUN, PLASMA | 8 | 6 - 20 mg/dL | [facility] | | | (LAB) | | | LABORATORY | | | | | | SERVICES, | | | | | | CORE | | + + + + + + | CREATININE | 0.46 (L) | 0.70 - 1.30 | [facility] | | | PLASMA | | mg/dL | LABORATORY | | | (LAB) | | | SERVICES, | | | | | | CORE | | + + + + + + | EGFR | >60 | >60 mL/min | [facility] | | | - | | | LABORATORY | | | SUDANESE | | | SERVICES, | | | | | | CORE | | + + + + + + | EGFR NON | >60 | >60 mL/min | [facility] | | | -KAEY | | | LABORATORY | | | RICAN | | | SERVICES, | | | | | | CORE | | + + + + + + | SODIUM, | 140 | 136 - 145 | [facility] | | | PLASMA | | mmol/L | LABORATORY | | | (LAB) | | | SERVICES, | | | | | | CORE | | + + + + + + | POTASSIUM, | 3.3 (L) | 3.4 - 5.0 | [facility] | | | PLASMA | | mmol/L | LABORATORY | | | (LAB) | | | SERVICES, | | | | | | CORE | | + + + + + + | CHLORIDE, | 104 | 97 - 108 mmol/L | [facility] | | | PLASMA | | | LABORATORY | | | (LAB) | | | SERVICES, | | | | | | CORE | | + + + + + + | TOTAL CO2, | 27 | 21 - 32 mmol/L | [facility] | | | PLASMA | | | LABORATORY | | | (LAB) | | | SERVICES, | | | | | | CORE | | + + + + + + | CALCIUM, | 7.8 (L) | 8.6 - 10.2 | [facility] | | | PLASMA | | mg/dL | LABORATORY | | | (LAB) | | | SERVICES, | | | | | | CORE | | + + + + + + | CALCIUM(ALB | 9.3 | 8.6 - 10.2 | [facility] | | | CORRECTED) | | mg/dL | LABORATORY | | | | | | SERVICES, | | | | | | CORE | | + + + + + + | ALBUMIN, | 2.1 (L) | 3.5 - 4.7 g/dL | [facility] | | | PLASMA | | | LABORATORY | | | (LAB) | | | SERVICES, | | | | | | CORE | | + + + + + + | PHOSPHORUS, | 2.4 | 2.4 - 4.7 mg/dL | [facility] | | | PLASMA | | | LABORATORY | | | (LAB) | | | SERVICES, | | | | | | CORE | | + + + + + + | POTASSIUM | No Hemo | | [facility] | | | CMNT | | | LABORATORY | | | | | | SERVICES, | | | | | | CORE | | + + + + + + | ANION GAP | 9 | 4 - 11 mmol/L | [facility] | | | | | | LABORATORY | | | | | | SERVICES, | | | | | | CORE | | + + + + + + | ANION | 13 (H) | 4 - 11 mmol/L | [facility] | | | GAP(ALB | | | LABORATORY | | | CORRECTED) | | | SERVICES, | | | | | | CORE | | + + + + + + + + | Specimen | + + | Blood - Blood | | (substance) | + + + + + | Narrative | Performed At | + + + | GFR is estimated using the MDRD equation recommended by the | [facility] | | National Kidney Disease Education Program. Estimated GFR | LABORATORY | | Interpretive Information: <60 mL/min/1.73 sq m | SERVICES, CORE | | Chronic Kidney Disease <15 mL/min/1.73 sq m | | | Kidney Failure Estimated GFR greater that 60 mL/min/1.73 sq m is of | | | limited clinical value. The MDRD equation is not valid in the | | | following situations: - Patients under 18 years of age - Severe | | | malnutrition or obesity - Vegetarian diet - Rapidly changing kidney | | | function - Amputees, paraplegics, or other muscle-wasting diseses | | + + + + + + + + | Performing | Address | City/State/Zipcode | Phone Number | | Organization | | | | + + + + + | [facility] | [address] | [place] [address] | | | SERVICES, CORE | [address] | | | + + + + + MAGNESIUM, PLASMA (09/07/2017 1:00 AM PDT) + +-------+ + + + | Component | Value | Ref Range | Performed | Pathologist | | | | | At | Signature | + +-------+ + + + | MAGNESIUM,P | 1.8 | 1.6 - 2.6 mg/dL | [facility] | | | LASMA | | | LABORATORY | | | | | | SERVICES, | | | | | | CORE | | + +-------+ + + + + + | Specimen | + + | Blood - Blood | | (substance) | + + + + + | Narrative | Performed At | + + + | Reference range change effective 12/11/16. | [facility] | | | LABORATORY | | | SERVICES, CORE | + + + + + + + + | Performing | Address | City/State/Zipcode | Phone Number | | Organization | | | | + + + + + | [facility] | [address] | [place] [address] | | | SERVICES, [facility] | [address] | | | + + + + + X-RAY EL PEÑA FEEDING TUBE EVAL (09/06/2017 8:04 PM PDT) + + | Specimen | + + | | + + + + + | Narrative | Performed At | + + + | EXAM: ABD LTD FEEDING TUBE EVAL 09/06/17 19:27:59 COMPARISON: | [facility] | | 09/06/17 earlier on the same day FINDINGS: Feeding tube has | RADIOLOGY VOICE | | been placed with it's tip projecting in the gastric fundus. | RECOGNITION | | Evaluation of the lungs is limited as technique was tailored for | | | feeding tube placement. There are low lung volumes with residual | | | perihilar and basilar atelectasis. Midline skin fernandez are observed | | | in the abdomen. IMPRESSION: Feeding tube tip projecting in | | | the gastric fundus. I have personally reviewed the images and, | | | if necessary, edited the report. I agree with the report as now | | | presented. | | + + + + + | Procedure Note | + + | Service Account, Radiant Res In Interface - 09/07/2017 10:46 AM PDT EXAM: ABD LTD | | FEEDING TUBE EVAL 09/06/17 19:27:59 COMPARISON: 09/06/17 earlier on the same | | dayFINDINGS: Feeding tube has been placed with it's tip projecting in the gastric | | fundus. Evaluation of the lungs is limited as technique was tailored for feeding tube | | placement. There are low lung volumes with residual perihilar and basilar atelectasis. | | Midline skin fernandez are observed in the abdomen.IMPRESSION: Feeding tube tip | | projecting in the gastric fundus.I have personally reviewed the images and, if | | necessary, edited the report. I agree with the report as now presented. | | | |Feeding tube tip projecting in the gastric fundus. | | | | | |I have personally reviewed the images and, if necessary, edited the report. I agree with t he report as now presented. | + + + +---------+ + + | Performing | Address | City/State/Zipcode | Phone Number | | Organization | | | | + +---------+ + + | [facility] | | | | | VOICE RECOGNITION | | | | + +---------+ + + X-RAY ABD LTD FEEDING TUBE EVAL (09/06/2017 6:40 PM PDT) + + | Specimen | + + | | + + + + + | Narrative | Performed At | + + + | EXAM: ABD LTD FEEDING TUBE EVAL 09/06/17 18:14:00 COMPARISON: | [facility] | | None FINDINGS: Feeding tube has been placed with it's tip | RADIOLOGY VOICE | | projecting in the gastric fundus. Evaluation of the lungs is limited | RECOGNITION | | as technique was tailored for feeding tube placement. Healed left rib | | | fractures are seen. IMPRESSION: Feeding tube tip | | | projecting in the gastric body. I have personally reviewed the | | | images and, if necessary, edited the report. I agree with the report | | | as now presented. | | + + + + + | Procedure Note | + + | Service Account, Hickies Res In Interface - 09/07/2017 10:46 AM PDT EXAM: ABD LTD | | FEEDING TUBE EVAL 09/06/17 18:14:00 COMPARISON: NoneFINDINGS: Feeding tube has been | | placed with it's tip projecting in the gastric fundus. Evaluation of the lungs is | | limited as technique was tailored for feeding tube placement. Healed left rib fractures | | are seen.IMPRESSION: Feeding tube tip projecting in the gastric body.I have personally | | reviewed the images and, if necessary, edited the report. I agree with the report as | | now presented. | | | |Feeding tube tip projecting in the gastric body. | | | | | |I have personally reviewed the images and, if necessary, edited the report. I agree with t he report as now presented. | + + + +---------+ + + | Performing | Address | City/State/Zipcode | Phone Number | | Organization | | | | + +---------+ + + | [facility] | | | | | VOICE RECOGNITION | | | | + +---------+ + + 12 LEAD ECG (09/06/2017 12:11 PM PDT) + + + + + + | Component | Value | Ref Range | Performed | Pathologist | | | | | At | Signature | + + + + + + | VENTRICULAR | 98 | bpm | [facility] | | | RATE | | | OF | | | | | | CARDIOLOGY | | + + + + + + | ATRIAL RATE | 98 | ms | [facility] | | | | | | OF | | | | | | CARDIOLOGY | | + + + + + + | P-R | 133 | ms | [facility] | | | INTERVAL | | | OF | | | | | | CARDIOLOGY | | + + + + + + | P AXIS | 61 | deg | [facility] | | | | | | OF | | | | | | CARDIOLOGY | | + + + + + + | QRS | 121 | ms | [facility] | | | DURATION | | | OF | | | | | | CARDIOLOGY | | + + + + + + | QT | 420 | ms | [facility] | | | | | | OF | | | | | | CARDIOLOGY | | + + + + + + | QTC-BAZETT | 537 | ms | [facility] | | | | | | OF | | | | | | CARDIOLOGY | | + + + + + + | R AXIS | 103 | deg | [facility] | | | | | | OF | | | | | | CARDIOLOGY | | + + + + + + | T AXIS | -8 | deg | [facility] | | | | | | OF | | | | | | CARDIOLOGY | | + + + + + + | ECG | Sinus rhythm | | [facility] | | | IMPRESSION | | | OF | | | | | | CARDIOLOGY | | + + + + + + | ECG | Right bundle branch | | [facility] | | | IMPRESSION | block | | OF | | | | | | CARDIOLOGY | | + + + + + + | ECG | Prolonged QT interval- | | [facility] | | | IMPRESSION | ABNORMAL ECG - | | OF | | | | | | CARDIOLOGY | | + + + + + + | ECG | Electronically signed | | [facility] | | | IMPRESSION | by: JULIO VIZCAINO | | OF | | | | 09-09-2017 21:14:04 | | CARDIOLOGY | | + + + + + + + + | Specimen | + + | | + + + + + | Narrative | Performed At | + + + | | | + + + + + + + + | Performing | Address | City/State/Zipcode | Phone Number | | Organization | | | | + + + + + | [facility] | [address] | [place], [place] | | | CARDIOLOGY | [address] | [phone] | | + + + + + PROCEDURE NOTE (09/06/2017 9:48 AM PDT) + + + | Narrative | Performed At | + + + | Karsten Patel RN 09/06/2017 9:50 AM Midline Insertion | | | Documentation Note Today's date: 09/06/2017 Start Time: At | | | 0940, prior to the beginning of the procedure, the team paused to | | | verify the patient's identity, the procedure to be performed and the | | | correct side/site. The patient was positioned appropriately. | | | Any safety precautions were addressed. Patient Location | | | (Unit/Room#): 8CICU #5 Indication for Midline: Access | | | Procedure Details: Masks were worn by all members in the room | | | where the procedure was performed. Prior to initiating the | | | procedure, the practitioner thoroughly washed their hands and donned | | | sterile gloves. The procedure was performed using sterile barrier | | | precautions. An ultrasound was used for pre-procedure | | | identification of the patient's vascular anatomy. Venipuncture was | | | performed under direct ultrasound guidance. The arm was prepped | | | and draped in the procedural sterile fashion and the sterile field | | | was maintained at all times. The insertion site was prepped with | | | Yogesh cloth and Chloraprep. Anesthesia was obtained with 1 mL of | | | buffered 1% Lidocaine. Midline Catheter Insertion: The RUE | | | brachial vein was cannulated with dark red, non-pulsatile blood | | | return. A 18g 10cm PowerGlide catheter was placed on the 1st | | | attempt. Midline lot number [id number]; there was positive blood | | | return. The catheter was flushed with 20 mL of Normal Saline, an | | | antimicrobial disc was placed at the insertion site and a catheter | | | securement device was utilized. Complications:none Placed | | | by: Karsten Patel RN, BSN | | + + + RENAL FUNCTION SET (NA,K,CL,CO2,BUN,CREAT,GLUC,CA,PHOS,ALB ) (09/06/2017 12:50 AM PDT) + + + + + + | Component | Value | Ref Range | Performed | Pathologist | | | | | At | Signature | + + + + + + | GLUCOSE, | 115 (H) | 70 - 99 mg/dL | [facility] | | | PLASMA | | | LABORATORY | | | (LAB) | | | SERVICES, | | | | | | CORE | | + + + + + + | BUN, PLASMA | 9 | 6 - 20 mg/dL | [facility] | | | (LAB) | | | LABORATORY | | | | | | SERVICES, | | | | | | CORE | | + + + + + + | CREATININE | 0.50 (L) | 0.70 - 1.30 | [facility] | | | PLASMA | | mg/dL | LABORATORY | | | (LAB) | | | SERVICES, | | | | | | CORE | | + + + + + + | EGFR | >60 | >60 mL/min | [facility] | | | - | | | LABORATORY | | | SUDANESE | | | SERVICES, | | | | | | CORE | | + + + + + + | EGFR NON | >60 | >60 mL/min | [facility] | | | -KAYE | | | LABORATORY | | | RICAN | | | SERVICES, | | | | | | CORE | | + + + + + + | SODIUM, | 140 | 136 - 145 | [facility] | | | PLASMA | | mmol/L | LABORATORY | | | (LAB) | | | SERVICES, | | | | | | CORE | | + + + + + + | POTASSIUM, | 3.5 | 3.4 - 5.0 | [facility] | | | PLASMA | | mmol/L | LABORATORY | | | (LAB) | | | SERVICES, | | | | | | CORE | | + + + + + + | CHLORIDE, | 104 | 97 - 108 mmol/L | [facility] | | | PLASMA | | | LABORATORY | | | (LAB) | | | SERVICES, | | | | | | CORE | | + + + + + + | TOTAL CO2, | 31 | 21 - 32 mmol/L | [facility] | | | PLASMA | | | LABORATORY | | | (LAB) | | | SERVICES, | | | | | | CORE | | + + + + + + | CALCIUM, | 7.6 (L) | 8.6 - 10.2 | [facility] | | | PLASMA | | mg/dL | LABORATORY | | | (LAB) | | | SERVICES, | | | | | | CORE | | + + + + + + | CALCIUM(ALB | 9.3 | 8.6 - 10.2 | [facility] | | | CORRECTED) | | mg/dL | LABORATORY | | | | | | SERVICES, | | | | | | CORE | | + + + + + + | ALBUMIN, | 1.9 (L) | 3.5 - 4.7 g/dL | [facility] | | | PLASMA | | | LABORATORY | | | (LAB) | | | SERVICES, | | | | | | CORE | | + + + + + + | PHOSPHORUS, | 3.6 | 2.4 - 4.7 mg/dL | [facility] | | | PLASMA | | | LABORATORY | | | (LAB) | | | SERVICES, | | | | | | CORE | | + + + + + + | POTASSIUM | No Hemo | | [facility] | | | CMNT | | | LABORATORY | | | | | | SERVICES, | | | | | | CORE | | + + + + + + | ANION GAP | 5 | 4 - 11 mmol/L | [facility] | | | | | | LABORATORY | | | | | | SERVICES, | | | | | | CORE | | + + + + + + | ANION | 10 | 4 - 11 mmol/L | [facility] | | | GAP(ALB | | | LABORATORY | | | CORRECTED) | | | SERVICES, | | | | | | CORE | | + + + + + + + + | Specimen | + + | Blood - Blood | | (substance) | + + + + + | Narrative | Performed At | + + + | Please draw trough just prior to administering the 01:30 dose on | [facility] | | 09/06, thanks! GFR is estimated using the MDRD equation recommended by | LABORATORY | | the National Kidney Disease Education Program. Estimated GFR | SERVICES, CORE | | Interpretive Information: <60 mL/min/1.73 sq m | | | Chronic Kidney Disease <15 mL/min/1.73 sq m | | | Kidney Failure Estimated GFR greater that 60 mL/min/1.73 sq m is of | | | limited clinical value. The MDRD equation is not valid in the | | | following situations: - Patients under 18 years of age - Severe | | | malnutrition or obesity - Vegetarian diet - Rapidly changing kidney | | | function - Amputees, paraplegics, or other muscle-wasting diseses | | + + + + + + + + | Performing | Address | City/State/Zipcode | Phone Number | | Organization | | | | + + + + + | [facility] | [address] | [place] [address] | | | SERVICES, CORE | [address] | | | + + + + + VANCOMYCIN, TROUGH (09/06/2017 12:50 AM PDT) + +---------+ + + + | Component | Value | Ref Range | Performed | Pathologist | | | | | At | Signature | + +---------+ + + + | VANCOMYCIN, | 8.8 (L) | 10.0 - 20.0 | [facility] | | | TROUGH | | ug/mL | LABORATORY | | | | | | SERVICES, | | | | | | CORE | | + +---------+ + + + + + | Specimen | + + | Blood - Blood | | (substance) | + + + + + | Narrative | Performed At | + + + | Please draw trough just prior to administering the 01:30 dose on | [facility] | | 09/06, thanks! | LABORATORY | | | [address] | + + + + + + + + | Performing | Address | City/State/Zipcode | Phone Number | | Organization | | | | + + + + + | [facility] | [address] | [place] [address] | | | [address] | [address] | | | + + + + + X-RAY PORTABLE CHEST 1 VIEW (09/05/2017 5:33 AM PDT) + + | Specimen | + + | | + + + + + | Narrative | Performed At | + + + | EXAM: CO CHEST 1 VIEW HISTORY: Evaluation after chest tube | [facility] | | removal. COMPARISON: Yesterday FINDINGS: Endotracheal and | RADIOLOGY VOICE | | enteric tubes are unchanged. The left chest tube has been removed. | RECOGNITION | | The cardiomediastinal silhouette is stable. Lung aeration is slightly | | | decreased with mildly increased bilateral perihilar and bibasilar | | | atelectasis. No pneumothorax. Persistent small right pleural effusion. | | | IMPRESSION: Interval removal of left chest tube without | | | appreciable residual left pneumothorax. Mildly increased scattered | | | atelectasis, otherwise no significant change from yesterday. I | | | have personally reviewed the images and, if necessary, edited the | | | report. I agree with the report as now presented. | | + + + + + | Procedure Note | + + | Service Account, Radiant Res In Interface - 09/05/2017 10:16 AM PDT EXAM: CO CHEST 1 | | VIEW HISTORY: Evaluation after chest tube removal.COMPARISON: YesterdayFINDINGS: | | Endotracheal and enteric tubes are unchanged. The left chest tube has been removed. The | | cardiomediastinal silhouette is stable. Lung aeration is slightly decreased with mildly | | increased bilateral perihilar and bibasilar atelectasis. No pneumothorax. Persistent | | small right pleural effusion.IMPRESSION: Interval removal of left chest tube without | | appreciable residual left pneumothorax.Mildly increased scattered atelectasis, otherwise | | no significant change from yesterday.I have personally reviewed the images and, if | | necessary, edited the report. I agree with the report as now presented. | |atelectasis. No pneumothorax. Persistent small right pleural effusion. | | | |IMPRESSION: | | | |Interval removal of left chest tube without appreciable residual left pneumothorax. | | | |Mildly increased scattered atelectasis, otherwise no significant change from yesterday. | | | | | |I have personally reviewed the images and, if necessary, edited the report. I agree with t he report as now presented. | + + + +---------+ + + | Performing | Address | City/State/Zipcode | Phone Number | | Organization | | | | + +---------+ + + | [facility] | | | | | VOICE RECOGNITION | | | | + +---------+ + + CBC (HEMOGRAM) ONLY (09/05/2017 3:54 AM PDT) + + + + + + | Component | Value | Ref Range | Performed | Pathologist | | | | | At | Signature | + + + + + + | WHITE CELL | 9.91 | 3.50 - 10.80 | [facility] | | | COUNT | | K/cu mm | LABORATORY | | | | | | SERVICES, | | | | | | CORE | | + + + + + + | RED CELL | 3.31 (L) | 4.50 - 6.00 | [facility] | | | COUNT | | M/cu mm | LABORATORY | | | | | | SERVICES, | | | | | | CORE | | + + + + + + | HEMOGLOBIN | 9.6 (L) | 13.5 - 17.5 | [facility] | | | | | g/dL | LABORATORY | | | | | | SERVICES, | | | | | | CORE | | + + + + + + | HEMATOCRIT | 28.4 (L) | 41.0 - 53.0 % | [facility] | | | | | | LABORATORY | | | | | | SERVICES, | | | | | | CORE | | + + + + + + | MCV | 85.8 | 80.0 - 96.0 fL | [facility] | | | | | | LABORATORY | | | | | | SERVICES, | | | | | | CORE | | + + + + + + | MCHC | 33.8 | 33.0 - 35.5 | [facility] | | | | | g/dL | LABORATORY | | | | | | SERVICES, | | | | | | CORE | | + + + + + + | RDW SD | 47.4 (H) | 35.1 - 46.3 fL | [facility] | | | | | | LABORATORY | | | | | | SERVICES, | | | | | | CORE | | + + + + + + | PLATELET | 112 (L) | 150 - 400 K/cu | [facility] | | | COUNT | | mm | LABORATORY | | | | | | SERVICES, | | | | | | CORE | | + + + + + + | MPV | 9.3 (L) | 9.7 - 12.3 fL | [facility] | | | | | | LABORATORY | | | | | | SERVICES, | | | | | | CORE | | + + + + + + | NRBC% | 0.0 | 0.0 - 0.3 % | [facility] | | | | | | LABORATORY | | | | | | SERVICES, | | | | | | CORE | | + + + + + + | NRBC# | 0.00 | 0.00 - 0.02 | [facility] | | | | | K/cu mm | LABORATORY | | | | | | SERVICES, | | | | | | CORE | | + + + + + + + + | Specimen | + + | Blood - Blood | | (substance) | + + + + + + + | Performing | Address | City/State/Zipcode | Phone Number | | Organization | | | | + + + + + | [facility] | [address] | [place] [address] | | | SERVICES, CORE | [address] | | | + + + + + MAGNESIUM, PLASMA (09/05/2017 3:54 AM PDT) + +-------+ + + + | Component | Value | Ref Range | Performed | Pathologist | | | | | At | Signature | + +-------+ + + + | MAGNESIUM,P | 1.8 | 1.6 - 2.6 mg/dL | [facility] | | | LASMA | | | LABORATORY | | | | | | SERVICES, | | | | | | CORE | | + +-------+ + + + + + | Specimen | + + | Blood - Blood | | (substance) | + + + + + | Narrative | Performed At | + + + | Reference range change effective 12/11/16. | [facility] | | | LABORATORY | | | SERVICES, CORE | + + + + + + + + | Performing | Address | City/State/Zipcode | Phone Number | | Organization | | | | + + + + + | [facility] | [address] | [place] [address] | | | SERVICES, CORE | [address] | | | + + + + + RENAL FUNCTION SET (NA,K,CL,CO2,BUN,CREAT,GLUC,CA,PHOS,ALB ) (09/05/2017 2:13 AM PDT) + + + + + + | Component | Value | Ref Range | Performed | Pathologist | | | | | At | Signature | + + + + + + | GLUCOSE, | 136 (H) | 70 - 99 mg/dL | [facility] | | | PLASMA | | | LABORATORY | | | (LAB) | | | SERVICES, | | | | | | CORE | | + + + + + + | BUN, PLASMA | 8 | 6 - 20 mg/dL | [facility] | | | (LAB) | | | LABORATORY | | | | | | SERVICES, | | | | | | CORE | | + + + + + + | CREATININE | 0.56 (L) | 0.70 - 1.30 | [facility] | | | PLASMA | | mg/dL | LABORATORY | | | (LAB) | | | SERVICES, | | | | | | CORE | | + + + + + + | EGFR | >60 | >60 mL/min | [facility] | | | - | | | LABORATORY | | | SUDANESE | | | SERVICES, | | | | | | CORE | | + + + + + + | EGFR NON | >60 | >60 mL/min | [facility] | | | -[facility]AYE | | | LABORATORY | | | RICAN | | | SERVICES, | | | | | | CORE | | + + + + + + | SODIUM, | 140 | 136 - 145 | [facility] | | | PLASMA | | mmol/L | LABORATORY | | | (LAB) | | | SERVICES, | | | | | | CORE | | + + + + + + | POTASSIUM, | 3.7 | 3.4 - 5.0 | [facility] | | | PLASMA | | mmol/L | LABORATORY | | | (LAB) | | | SERVICES, | | | | | | CORE | | + + + + + + | CHLORIDE, | 104 | 97 - 108 mmol/L | [facility] | | | PLASMA | | | LABORATORY | | | (LAB) | | | SERVICES, | | | | | | CORE | | + + + + + + | TOTAL CO2, | 33 (H) | 21 - 32 mmol/L | [facility] | | | PLASMA | | | LABORATORY | | | (LAB) | | | SERVICES, | | | | | | CORE | | + + + + + + | CALCIUM, | 7.3 (L) | 8.6 - 10.2 | [facility] | | | PLASMA | | mg/dL | LABORATORY | | | (LAB) | | | SERVICES, | | | | | | CORE | | + + + + + + | CALCIUM(ALB | 9.1 | 8.6 - 10.2 | [facility] | | | CORRECTED) | | mg/dL | LABORATORY | | | | | | SERVICES, | | | | | | CORE | | + + + + + + | ALBUMIN, | 1.8 (L) | 3.5 - 4.7 g/dL | [facility] | | | PLASMA | | | LABORATORY | | | (LAB) | | | SERVICES, | | | | | | CORE | | + + + + + + | PHOSPHORUS, | 2.3 (L) | 2.4 - 4.7 mg/dL | [facility] | | | PLASMA | | | LABORATORY | | | (LAB) | | | SERVICES, | | | | | | CORE | | + + + + + + | POTASSIUM | No Hemo | | [facility] | | | CMNT | | | LABORATORY | | | | | | SERVICES, | | | | | | CORE | | + + + + + + | ANION GAP | 3 (L) | 4 - 11 mmol/L | [facility] | | | | | | LABORATORY | | | | | | SERVICES, | | | | | | CORE | | + + + + + + | ANION | 8 | 4 - 11 mmol/L | [facility] | | | GAP(ALB | | | LABORATORY | | | CORRECTED) | | | SERVICES, | | | | | | CORE | | + + + + + + + + | Specimen | + + | Blood - Blood | | (substance) | + + + + + | Narrative | Performed At | + + + | GFR is estimated using the MDRD equation recommended by the | [facility] | | National Kidney Disease Education Program. Estimated GFR | LABORATORY | | Interpretive Information: <60 mL/min/1.73 sq m | SERVICES, CORE | | Chronic Kidney Disease <15 mL/min/1.73 sq m | | | Kidney Failure Estimated GFR greater that 60 mL/min/1.73 sq m is of | | | limited clinical value. The MDRD equation is not valid in the | | | following situations: - Patients under 18 years of age - Severe | | | malnutrition or obesity - Vegetarian diet - Rapidly changing kidney | | | function - Amputees, paraplegics, or other muscle-wasting diseses | | + + + + + + + + | Performing | Address | City/State/Zipcode | Phone Number | | Organization | | | | + + + + + | [facility] | [id number] | [place] [address] | | | SERVICES, CORE | [address] | | | + + + + + RENAL FUNCTION SET (NA,K,CL,CO2,BUN,CREAT,GLUC,CA,PHOS,ALB ) (09/04/2017 4:51 PM PDT) + + + + + + | Component | Value | Ref Range | Performed | Pathologist | | | | | At | Signature | + + + + + + | GLUCOSE, | 150 (H) | 70 - 99 mg/dL | [facility] | | | PLASMA | | | LABORATORY | | | (LAB) | | | SERVICES, | | | | | | CORE | | + + + + + + | BUN, PLASMA | 6 | 6 - 20 mg/dL | [facility] | | | (LAB) | | | LABORATORY | | | | | | SERVICES, | | | | | | CORE | | + + + + + + | CREATININE | 0.55 (L) | 0.70 - 1.30 | [facility] | | | PLASMA | | mg/dL | LABORATORY | | | (LAB) | | | SERVICES, | | | | | | CORE | | + + + + + + | EGFR | >60 | >60 mL/min | [facility] | | | - | | | LABORATORY | | | [facility] | | | SERVICES, | | | | | | CORE | | + + + + + + | EGFR NON | >60 | >60 mL/min | [facility] | | | -[facility] | | | LABORATORY | | | [facility] | | | SERVICES, | | | | | | CORE | | + + + + + + | SODIUM, | 143 | 136 - 145 | [facility] | | | PLASMA | | mmol/L | LABORATORY | | | (LAB) | | | SERVICES, | | | | | | CORE | | + + + + + + | POTASSIUM, | 3.4 | 3.4 - 5.0 | [facility] | | | PLASMA | | mmol/L | LABORATORY | | | (LAB) | | | SERVICES, | | | | | | CORE | | + + + + + + | CHLORIDE, | 107 | 97 - 108 mmol/L | [facility] | | | PLASMA | | | LABORATORY | | | (LAB) | | | SERVICES, | | | | | | CORE | | + + + + + + | TOTAL CO2, | 27 | 21 - 32 mmol/L | [facility] | | | PLASMA | | | LABORATORY | | | (LAB) | | | SERVICES, | | | | | | CORE | | + + + + + + | CALCIUM, | 7.0 (L) | 8.6 - 10.2 | [facility] | | | PLASMA | | mg/dL | LABORATORY | | | (LAB) | | | SERVICES, | | | | | | CORE | | + + + + + + | CALCIUM(ALB | 8.8 | 8.6 - 10.2 | [facility] | | | CORRECTED) | | mg/dL | LABORATORY | | | | | | SERVICES, | | | | | | CORE | | + + + + + + | ALBUMIN, | 1.8 (L) | 3.5 - 4.7 g/dL | [facility] | | | PLASMA | | | LABORATORY | | | (LAB) | | | SERVICES, | | | | | | CORE | | + + + + + + | PHOSPHORUS, | 3.3 | 2.4 - 4.7 mg/dL | [facility] | | | PLASMA | | | LABORATORY | | | (LAB) | | | SERVICES, | | | | | | CORE | | + + + + + + | POTASSIUM | No Hemo | | [facility] | | | CMNT | | | LABORATORY | | | | | | SERVICES, | | | | | | CORE | | + + + + + + | ANION GAP | 9 | 4 - 11 mmol/L | [facility] | | | | | | LABORATORY | | | | | | SERVICES, | | | | | | CORE | | + + + + + + | ANION | 14 (H) | 4 - 11 mmol/L | [facility] | | | GAP(ALB | | | LABORATORY | | | CORRECTED) | | | SERVICES, | | | | | | CORE | | + + + + + + + + | Specimen | + + | Blood - Blood | | (substance) | + + + + + | Narrative | Performed At | + + + | GFR is estimated using the MDRD equation recommended by the | [facility] | | National Kidney Disease Education Program. Estimated GFR | LABORATORY | | Interpretive Information: <60 mL/min/1.73 sq m | SERVICES, CORE | | Chronic Kidney Disease <15 mL/min/1.73 sq m | | | Kidney Failure Estimated GFR greater that 60 mL/min/1.73 sq m is of | | | limited clinical value. The MDRD equation is not valid in the | | | following situations: - Patients under 18 years of age - Severe | | | malnutrition or obesity - Vegetarian diet - Rapidly changing kidney | | | function - Amputees, paraplegics, or other muscle-wasting diseses | | + + + + + + + + | Performing | Address | City/State/[place] Service Unitcode | Phone Number | | Organization | | | | + + + + + | [facility] | [address] | [place] [address] | | | [facility] [place] | [address] | | | + + + + + PROCEDURE NOTE (09/04/2017 2:04 PM PDT) + + + | Narrative | Performed At | + + + | CB Betancourt 09/04/2017 2:05 PM Procedure Note: | | | Chest Tube Removal Name: Diogenes Temple 09/04/2017 | | | Time: 2:05 PM Performed By: CB Henson Procedure | | | Details: The patient was placed with left side up. The sutures | | | securing the chest tube were removed. The left chest tube was | | | removed without difficulty while the patient was taking a maximal | | | deep breath on the vent. Petroleum gauze and dressing applied and | | | secured using tape. Findings: There were no changes to vital | | | signs. Patient tolerated the procedure well. CXR was ordered for | | | tomorrow morning. CB Henson Pager / ID: [id number] | | + + + CULTURE, SPUTUM (09/04/2017 1:17 PM PDT) + + | Specimen | + + | Sputum - | | Endotracheal tube | | tip | + + + + + | Narrative | Performed At | + + + | Culture Report: 1+ Oral Melinda Gram Stain: No squamous | [facility] | | epithelial cells Rare polymorphonuclear cells No organisms seen | [facility] - | | | [place] | + + + + + + + + | Performing | Address | City/State/Zipcode | Phone Number | | Organization | | | | + + + + + | [facility] | [address] | [place] [address] | | | [place] | | | | + + + + + URINE, MICROSCOPIC EXAM (09/04/2017 1:17 PM PDT) + +---------+ + + + | Component | Value | Ref Range | Performed | Pathologist | | | | | At | Signature | + +---------+ + + + | RED CELLS | 3 | 0 - 3 /hpf | [facility] | | | | | | LABORATORY | | | | | | SERVICES, | | | | | | CORE | | + +---------+ + + + | WHITE CELLS | 1 | 0 - 5 /hpf | [facility] | | | | | | LABORATORY | | | | | | SERVICES, | | | | | | CORE | | + +---------+ + + + | BACTERIA | None | None /hpf | [facility] | | | | | | LABORATORY | | | | | | SERVICES, | | | | | | CORE | | + +---------+ + + + | YEAST (LAB) | None | None /hpf | [facility] | | | | | | LABORATORY | | | | | | SERVICES, | | | | | | CORE | | + +---------+ + + + | SQUAMOUS | None | None /hpf | [facility] | | | EPITHELIAL | | | LABORATORY | | | | | | SERVICES, | | | | | | CORE | | + +---------+ + + + | MUCOUS | Few (A) | None /hpf | [facility] | | | | | | LABORATORY | | | | | | SERVICES, | | | | | | CORE | | + +---------+ + + + | TRICHOMONAS | None | None /hpf | [facility] | | | | | | LABORATORY | | | | | | SERVICES, | | | | | | CORE | | + +---------+ + + + | NON-SQUAMOU | None | None /hpf | [facility] | | | S EPITH | | | LABORATORY | | | | | | SERVICES, | | | | | | CORE | | + +---------+ + + + | HYALINE | 0 | 0 - 2 /lpf | [facility] | | | CASTS | | | LABORATORY | | | | | | SERVICES, | | | | | | CORE | | + +---------+ + + + | GRANULAR | 4 (H) | 0 - 2 /lpf | [facility] | | | CASTS | | | LABORATORY | | | | | | SERVICES, | | | | | | CORE | | + +---------+ + + + | CELLULAR | 0 | <=0 /lpf | [facility] | | | CASTS | | | LABORATORY | | | | | | SERVICES, | | | | | | CORE | | + +---------+ + + + | TRIPLE P04 | None | None /hpf | [facility] | | | CRYSTALS | | | LABORATORY | | | | | | SERVICES, | | | | | | CORE | | + +---------+ + + + | CALCIUM | None | None /hpf | [facility] | | | OXALATE | | | LABORATORY | | | CECILIA | | | SERVICES, | | | | | | CORE | | + +---------+ + + + | URIC ACID | None | None /hpf | [facility] | | | CRYSTALS | | | LABORATORY | | | | | | SERVICES, | | | | | | CORE | | + +---------+ + + + | AMORPHOUS | None | None /hpf | [facility] | | | CRYSTALS | | | LABORATORY | | | | | | SERVICES, | | | | | | CORE | | + +---------+ + + + + + | Specimen | + + | Urine - Catheter, | | device (physical | | object) | + + + + + + + | Performing | Address | City/State/Zipcode | Phone Number | | Organization | | | | + + + + + | [facility] | [address] | [place] [address] | | | SERVICES, CORE | [address] | | | + + + + + TITO COLE ONLY (09/04/2017 1:17 PM PDT) + + + + + + | Component | Value | Ref Range | Performed | Pathologist | | | | | At | Signature | + + + + + + | COLOR(UR) | Yellow | | [facility] | | | | | | LABORATORY | | | | | | SERVICES, | | | | | | CORE | | + + + + + + | APPEARANCE | Clear | | [facility] | | | | | | LABORATORY | | | | | | SERVICES, | | | | | | CORE | | + + + + + + | GLUCOSE(UR) | Negative | Negative, 50.0 | [facility] | | | | | mg/dL | LABORATORY | | | | | | SERVICES, | | | | | | CORE | | + + + + + + | PROTEIN(LAB | Negative | Negative, 30.0 | [facility] | | | ) | | mg/dL | LABORATORY | | | | | | SERVICES, | | | | | | CORE | | + + + + + + | BILIRUBIN | Negative | Negative | [facility] | | | | | | LABORATORY | | | | | | SERVICES, | | | | | | CORE | | + + + + + + | UROBILINOGE | <2.0 | <2.0 mg/dL | [facility] | | | N | | | LABORATORY | | | | | | SERVICES, | | | | | | CORE | | + + + + + + | PH(UR) | 5.0 | 5.0 - 8.0 | [facility] | | | | | | LABORATORY | | | | | | SERVICES, | | | | | | CORE | | + + + + + + | BLOOD | Small (A) | Negative | [facility] | | | | | | LABORATORY | | | | | | SERVICES, | | | | | | CORE | | + + + + + + | KETONES | 20.0 (A) | Negative mg/dL | [facility] | | | | | | LABORATORY | | | | | | SERVICES, | | | | | | CORE | | + + + + + + | NITRITES | Negative | Negative | [facility] | | | | | | LABORATORY | | | | | | SERVICES, | | | | | | CORE | | + + + + + + | LEUKOCYTE | Negative | Negative | [facility] | | | ESTERASE | | | LABORATORY | | | | | | SERVICES, | | | | | | CORE | | + + + + + + | SPECIFIC | 1.011Comment: Specific | 1.005 - 1.030 | [facility] | | | GRAVITY | [place] performed by | | LABORATORY | | | | refractometry | | SERVICES, | | | | | | CORE | | + + + + + + + + | Specimen | + + | Urine - Catheter, | | device (physical | | object) | + + + + + + + | Performing | Address | City/State/Zipcode | Phone Number | | Organization | | | | + + + + + | [facility] | [address] | [place] [address] | | | SERVICES, NATAL[place] | [address] | | | + + + + + CULTURE, BLOOD BACTI & YEAST [facility] (09/04/2017 1:16 PM PDT) + + + + + + | Component | Value | Ref Range | Performed | Pathologist | | | | | At | Signature | + + + + + + | CULTURE | Final Report:No Bacteria | | [facility] | | | RESULT | or Yeast isolated at 5 | | LABORATORY | | | | days. | | SERVICES, | | | | | | CORE | | + + + + + + + + | Specimen | + + | Blood - Arterial | | line (physical | | object) | + + + + + + + | Performing | Address | City/State/Zipcode | Phone Number | | Organization | | | | + + + + + | [facility] | [address] | [place] [address] | | | SERVICES, CORE | [address] | | | + + + + + CULTURE, BLOOD BACTI & YEAST [facility] (09/04/2017 1:16 PM PDT) + + + + + + | Component | Value | Ref Range | Performed | Pathologist | | | | | At | Signature | + + + + + + | CULTURE | Final Report:No Bacteria | | [facility] | | | RESULT | or Yeast isolated at 5 | | LABORATORY | | | | days. | | SERVICES, | | | | | | CORE | | + + + + + + + + | Specimen | + + | Blood - Peripheral | | (qualifier value) | + + + + + + + | Performing | Address | City/State/Zipcode | Phone Number | | Organization | | | | + + + + + | [facility] | [address] | [place] [address] | | | SERVICES, CORE | [address] | | | + + + + + 12 LEAD ECG (09/04/2017 9:29 AM PDT) + + + + + + | Component | Value | Ref Range | Performed | Pathologist | | | | | At | Signature | + + + + + + | VENTRICULAR | 99 | bpm | [facility] | | | RATE | | | OF | | | | | | CARDIOLOGY | | + + + + + + | ATRIAL RATE | 99 | ms | [facility] | | | | | | OF | | | | | | CARDIOLOGY | | + + + + + + | P-R | 139 | ms | [facility] | | | INTERVAL | | | OF | | | | | | CARDIOLOGY | | + + + + + + | P AXIS | 51 | deg | [facility] | | | | | | OF | | | | | | CARDIOLOGY | | + + + + + + | QRS | 123 | ms | [facility] | | | DURATION | | | OF | | | | | | CARDIOLOGY | | + + + + + + | QT | 368 | ms | [facility] | | | | | | OF | | | | | | CARDIOLOGY | | + + + + + + | QTC-BAZETT | 474 | ms | [facility] | | | | | | OF | | | | | | CARDIOLOGY | | + + + + + + | R AXIS | 110 | deg | [facility] | | | | | | OF | | | | | | CARDIOLOGY | | + + + + + + | T AXIS | 25 | deg | [facility] | | | | | | OF | | | | | | CARDIOLOGY | | + + + + + + | ECG | Sinus rhythm | | [facility] | | | IMPRESSION | | | OF | | | | | | CARDIOLOGY | | + + + + + + | ECG | Right bundle branch | | [facility] | | | IMPRESSION | block- ABNORMAL ECG - | | OF | | | | | | CARDIOLOGY | | + + + + + + | ECG | Electronically signed | | [facility] | | | IMPRESSION | by: AJAY DE LOS SANTOS | | OF | | | | 09-04-2017 13:44:49 | | CARDIOLOGY | | + + + + + + + + | Specimen | + + | | + + + + + | Narrative | Performed At | + + + | | | + + + + + + + + | Performing | Address | City/State/Zipcode | Phone Number | | Organization | | | | + + + + + | [facility] | [address] | [place], [place] | | | CARDIOLOGY | [address] | [address] | | + + + + + X-RAY PORTABLE CHEST 1 VIEW (09/04/2017 7:04 AM PDT) + + | Specimen | + + | | + + + + + | Narrative | Performed At | + + + | EXAM: CO CHEST 1 VIEW HISTORY: Hypoxia. Intubated. | [facility] | | COMPARISON: 09/01/17 FINDINGS: Endotracheal tube tip is 2 cm | RADIOLOGY VOICE | | above the yifan. Left-sided chest tube and enteric tube remain in | RECOGNITION | | place. Abdominal skin fernandez noted. There is improved aeration | | | with decreased scattered atelectasis. There is no definite pulmonary | | | edema. Small right pleural effusion evident. There is no | | | pneumothorax. IMPRESSION: Increased left basilar atelectasis, | | | otherwise improved minimal scattered atelectasis elsewhere. Small | | | right pleural effusion probably slightly increased. I have | | | personally reviewed the images and, if necessary, edited the report. | | | I agree with the report as now presented. | | + + + + + | Procedure Note | + + | Service Account, [employer] In Interface - 09/04/2017 9:49 AM PDT EXAM: CO CHEST 1 | | VIEW HISTORY: Hypoxia. Intubated.COMPARISON: 09/01/17INDINGS: Endotracheal tube tip is 2 | | cm above the yifan. Left-sided chest tube and enteric tube remain in place. | | Abdominal skin fernandez noted.There is improved aeration with decreased scattered | | atelectasis. There is no definite pulmonary edema. Small right pleural effusion | | evident. There is no pneumothorax.IMPRESSION: Increased left basilar atelectasis, | | otherwise improved minimal scattered atelectasis elsewhere.Small right pleural effusion | | probably slightly increased.I have personally reviewed the images and, if necessary, | | edited the report. I agree with the report as now presented. | | | |There is improved aeration with decreased scattered atelectasis. There is no definite pulm onary edema. Small right pleural effusion evident. There is no pneumothorax. | | | |IMPRESSION: | | | |Increased left basilar atelectasis, otherwise improved minimal scattered atelectasis elsewh ere. | | | |Small right pleural effusion probably slightly increased. | | | | | |I have personally reviewed the images and, if necessary, edited the report. I agree with t he report as now presented. | + + + +---------+ + + | Performing | Address | City/State/Zipcode | Phone Number | | Organization | | | | + +---------+ + + | [facility] | | | | | VOICE RECOGNITION | | | | + +---------+ + + BLOOD GASES, ARTERIAL - LAB (09/04/2017 12:29 AM PDT) + + + + + + | Component | Value | Ref Range | Performed | Pathologist | | | | | At | Signature | + + + + + + | FIO2 | 0.30Comment: 37.6 C | | [facility] | | | ARTERIAL | | | LABORATORY | | | | | | SERVICES, | | | | | | CORE | | + + + + + + | PH ARTERIAL | 7.35 (L) | 7.37 - 7.44 | [facility] | | | | | | LABORATORY | | | | | | SERVICES, | | | | | | CORE | | + + + + + + | PCO2 | 54 (H) | 32 - 43 mmHg | [facility] | | | ARTERIAL | | | LABORATORY | | | | | | SERVICES, | | | | | | CORE | | + + + + + + | PO2 | 80 | 72 - 104 mmHg | [facility] | | | ARTERIAL | | | LABORATORY | | | | | | SERVICES, | | | | | | CORE | | + + + + + + | HCO3 | 29 (H) | 21 - 28 mmol/L | [facility] | | | ARTERIAL | | | LABORATORY | | | | | | SERVICES, | | | | | | CORE | | + + + + + + | TOTAL CO2 | 31 (H) | 22 - 28 mmol/L | [facility] | | | ARTERIAL | | | LABORATORY | | | | | | SERVICES, | | | | | | CORE | | + + + + + + | BASE EXCESS | 3.0 (H) | -2.0 - 2.0 | [facility] | | | ARTERIAL | | mmol/L | LABORATORY | | | | | | SERVICES, | | | | | | CORE | | + + + + + + | O2 SAT, | 96.6 | 92.0 - 98.0 % | [facility] | | | ARTERIAL | | | LABORATORY | | | | | | SERVICES, | | | | | | CORE | | + + + + + + | PAO2/FIO2 | 267 (L) | >300 mmHg | [facility] | | | RATIO | | | LABORATORY | | | | | | SERVICES, | | | | | | CORE | | + + + + + + + + | Specimen | + + | Blood - Blood | | (substance) | + + + + + + + | Performing | Address | City/State/Zipcode | Phone Number | | Organization | | | | + + + + + | [facility] | [address] | [place] [address] | | | SERVICES, CORE | [address] | | | + + + + + CBC (HEMOGRAM) ONLY (09/04/2017 12:29 AM PDT) + + + + + + | Component | Value | Ref Range | Performed | Pathologist | | | | | At | Signature | + + + + + + | WHITE CELL | 11.75 (H) | 3.50 - 10.80 | [facility] | | | COUNT | | K/cu mm | LABORATORY | | | | | | SERVICES, | | | | | | CORE | | + + + + + + | RED CELL | 3.53 (L) | 4.50 - 6.00 | [facility] | | | COUNT | | M/cu mm | LABORATORY | | | | | | SERVICES, | | | | | | CORE | | + + + + + + | HEMOGLOBIN | 10.1 (L) | 13.5 - 17.5 | [facility] | | | | | g/dL | LABORATORY | | | | | | SERVICES, | | | | | | CORE | | + + + + + + | HEMATOCRIT | 31.1 (L) | 41.0 - 53.0 % | [facility] | | | | | | LABORATORY | | | | | | SERVICES, | | | | | | CORE | | + + + + + + | MCV | 88.1 | 80.0 - 96.0 fL | [facility] | | | | | | LABORATORY | | | | | | SERVICES, | | | | | | CORE | | + + + + + + | MCHC | 32.5 | 33.0 - 35.5 | [facility] | | | | | g/dL | LABORATORY | | | | | | SERVICES, | | | | | | CORE | | + + + + + + | RDW SD | 48.9 (H) | 35.1 - 46.3 fL | [facility] | | | | | | LABORATORY | | | | | | SERVICES, | | | | | | CORE | | + + + + + + | PLATELET | 105 (L) | 150 - 400 K/cu | [facility] | | | COUNT | | mm | LABORATORY | | | | | | SERVICES, | | | | | | CORE | | + + + + + + | MPV | 10.2 | 9.7 - 12.3 fL | [facility] | | | | | | LABORATORY | | | | | | SERVICES, | | | | | | CORE | | + + + + + + | NRBC% | 0.0 | 0.0 - 0.3 % | [facility] | | | | | | LABORATORY | | | | | | SERVICES, | | | | | | CORE | | + + + + + + | NRBC# | 0.00 | 0.00 - 0.02 | [facility] | | | | | K/cu mm | LABORATORY | | | | | | SERVICES, | | | | | | CORE | | + + + + + + + + | Specimen | + + | Blood - Blood | | (substance) | + + + + + + + | Performing | Address | City/State/Zipcode | Phone Number | | Organization | | | | + + + + + | [facility] | [address] | [place] [address] | | | SERVICES, CORE | [address] | | | + + + + + RENAL FUNCTION SET (NA,K,CL,CO2,BUN,CREAT,GLUC,CA,PHOS,ALB ) (09/04/2017 12:29 AM PDT) + + + + + + | Component | Value | Ref Range | Performed | Pathologist | | | | | At | Signature | + + + + + + | GLUCOSE, | 112 (H) | 70 - 99 mg/dL | [facility] | | | PLASMA | | | LABORATORY | | | (LAB) | | | SERVICES, | | | | | | CORE | | + + + + + + | BUN, PLASMA | 6 | 6 - 20 mg/dL | [facility] | | | (LAB) | | | LABORATORY | | | | | | SERVICES, | | | | | | CORE | | + + + + + + | CREATININE | 0.52 (L) | 0.70 - 1.30 | [facility] | | | PLASMA | | mg/dL | LABORATORY | | | (LAB) | | | SERVICES, | | | | | | CORE | | + + + + + + | EGFR | >60 | >60 mL/min | [facility] | | | - | | | LABORATORY | | | SUDANESE | | | SERVICES, | | | | | | CORE | | + + + + + + | EGFR NON | >60 | >60 mL/min | [facility] | | | -KAYE | | | LABORATORY | | | RICAN | | | SERVICES, | | | | | | CORE | | + + + + + + | SODIUM, | 141 | 136 - 145 | [facility] | | | PLASMA | | mmol/L | LABORATORY | | | (LAB) | | | SERVICES, | | | | | | CORE | | + + + + + + | POTASSIUM, | 3.6 | 3.4 - 5.0 | [facility] | | | PLASMA | | mmol/L | LABORATORY | | | (LAB) | | | SERVICES, | | | | | | CORE | | + + + + + + | CHLORIDE, | 107 | 97 - 108 mmol/L | [facility] | | | PLASMA | | | LABORATORY | | | (LAB) | | | SERVICES, | | | | | | CORE | | + + + + + + | TOTAL CO2, | 29 | 21 - 32 mmol/L | [facility] | | | PLASMA | | | LABORATORY | | | (LAB) | | | SERVICES, | | | | | | CORE | | + + + + + + | CALCIUM, | 7.5 (L) | 8.6 - 10.2 | [facility] | | | PLASMA | | mg/dL | LABORATORY | | | (LAB) | | | SERVICES, | | | | | | CORE | | + + + + + + | CALCIUM(ALB | 9.2 | 8.6 - 10.2 | [facility] | | | CORRECTED) | | mg/dL | LABORATORY | | | | | | SERVICES, | | | | | | CORE | | + + + + + + | ALBUMIN, | 1.9 (L) | 3.5 - 4.7 g/dL | [facility] | | | PLASMA | | | LABORATORY | | | (LAB) | | | SERVICES, | | | | | | CORE | | + + + + + + | PHOSPHORUS, | 2.6 | 2.4 - 4.7 mg/dL | [facility] | | | PLASMA | | | LABORATORY | | | (LAB) | | | SERVICES, | | | | | | CORE | | + + + + + + | POTASSIUM | No Hemo | | [facility] | | | CMNT | | | LABORATORY | | | | | | SERVICES, | | | | | | CORE | | + + + + + + | ANION GAP | 5 | 4 - 11 mmol/L | [facility] | | | | | | LABORATORY | | | | | | SERVICES, | | | | | | CORE | | + + + + + + | ANION | 10 | 4 - 11 mmol/L | [facility] | | | GAP(ALB | | | LABORATORY | | | CORRECTED) | | | SERVICES, | | | | | | CORE | | + + + + + + + + | Specimen | + + | Blood - Blood | | (substance) | + + + + + | Narrative | Performed At | + + + | GFR is estimated using the MDRD equation recommended by the | [facility] | | National Kidney Disease Education Program. Estimated GFR | LABORATORY | | Interpretive Information: <60 mL/min/1.73 sq m | SERVICES, CORE | | Chronic Kidney Disease <15 mL/min/1.73 sq m | | | Kidney Failure Estimated GFR greater that 60 mL/min/1.73 sq m is of | | | limited clinical value. The MDRD equation is not valid in the | | | following situations: - Patients under 18 years of age - Severe | | | malnutrition or obesity - Vegetarian diet - Rapidly changing kidney | | | function - Amputees, paraplegics, or other muscle-wasting diseses | | + + + + + + + + | Performing | Address | City/State/Zipcode | Phone Number | | Organization | | | | + + + + + | [facility] | [address] | [place] [address] | | | ELIN, CORE | [address] | | | + + + + + MAGNESIUM, PLASMA (09/04/2017 12:29 AM PDT) + +-------+ + + + | Component | Value | Ref Range | Performed | Pathologist | | | | | At | Signature | + +-------+ + + + | MAGNESIUM,P | 1.9 | 1.6 - 2.6 mg/dL | [facility] | | | LASMA | | | LABORATORY | | | | | | SERVICES, | | | | | | CORE | | + +-------+ + + + + + | Specimen | + + | Blood - Blood | | (substance) | + + + + + | Narrative | Performed At | + + + | Reference range change effective 12/11/16. | [facility] | | | LABORATORY | | | [address] | + + + + + + + + | Performing | Address | City/State/Zipcode | Phone Number | | Organization | | | | + + + + + | [facility] | [address] | [place] [address] | | | [place] [place] | [address] | | | + + + + + CAPILLARY BLOOD GLUCOSE (NO CHG), POC (09/04/2017 12:27 AM PDT) + +---------+ + + + | Component | Value | Ref Range | Performed | Pathologist | | | | | At | Signature | + +---------+ + + + | BLOOD | 116 (H) | 70 - 99 mg/dL | [facility] - | | | GLUCOSE, | | | [facility] | | | POC | | | [facility] | | | | | | OF CARE | | | | | | TESTS | | + +---------+ + + + + + | Specimen | + + | | + + + + + + + | Performing | Address | City/State/Zipcode | Phone Number | | Organization | | | | + + + + + | [facility] | [address] | [place], [place] | | | [facility] | [facility] | [phone] | | | TESTS | | | | + + + + + CAPILLARY BLOOD GLUCOSE (NO CHG), POC (09/04/2017 12:17 AM PDT) + +-------+ + + + | Component | Value | Ref Range | Performed | Pathologist | | | | | At | Signature | + +-------+ + + + | BLOOD | 72 | 70 - 99 mg/dL | [facility] | | | [facility], | | | [facility] | | | POC | | | [facility] | | | | | | OF CARE | | | | | | TESTS | | + +-------+ + + + + + | Specimen | + + | | + + + + + + + | Performing | Address | City/State/Zipcode | Phone Number | | Organization | | | | + + + + + | [facility] | [address] | [place], [place] | | | GLORIA GENAO OF [facility] | [facility] | [phone] | | | TESTS | | | | + + + + + CAPILLARY BLOOD GLUCOSE (NO CHG), POC (09/03/2017 9:22 PM PDT) + +---------+ + + + | Component | Value | Ref Range | Performed | Pathologist | | | | | At | Signature | + +---------+ + + + | BLOOD | 119 (H) | 70 - 99 mg/dL | [facility] | | | [facility], | | | [facility] | | | POC | | | [place] | | | | | | OF CARE | | | | | | TESTS | | + +---------+ + + + + + | Specimen | + + | | + + + + + + + | Performing | Address | City/State/Zipcode | Phone Number | | Organization | | | | + + + + + | [facility] | [address] | [place], [place] | | | [facility] | [address] | [phone] | | | TESTS | | | | + + + + + CAPILLARY BLOOD GLUCOSE (NO CHG), POC (09/03/2017 1:30 PM PDT) + +-------+ + + + | Component | Value | Ref Range | Performed | Pathologist | | | | | At | Signature | + +-------+ + + + | BLOOD | 97 | 70 - 99 mg/dL | [facility] | | | [facility], | | | [facility] | | | POC | | | [facility] | | | | | | OF CARE | | | | | | TESTS | | + +-------+ + + + + + | Specimen | + + | | + + + + + + + | Performing | Address | City/State/Zipcode | Phone Number | | Organization | | | | + + + + + | [facility] | [address] | [place], [place] | | | [place] | [address] | [phone] | | | TESTS | | | | + + + + + VASC LAB VENOUS DUPLEX LOWER EXTREMITY BILAT COMP (09/03/2017 9:51 AM PDT) + + | Specimen | + + | | + + + + + | Narrative | Performed At | + + + | Bilateral: The duplex scanner was used to examine the deep and | [facility] | | superficial veins of the right and left lower extremities. The left | RADIOLOGY VASC | | common femoral and profunda femoral veins were not examined due to | US | | overlying bandages. All other veins are patent bilaterally with | | | normal flow and responses to augmentation and compression maneuvers | | | and no thrombus is noted. Conclusions: No deep or superficial | | | venous thrombosis detected bilaterally. The left common femoral and | | | profunda femoral veins were not examined. Limitations of the | | | examination described above preclude the study from definitive | | | exclusion of DVT. If clinical suspicion of DVT remains a follow-up | | | study is suggested in 3 to 5 days. I have personally | | | reviewed the images and, if necessary, edited the report. I agree | | | with the report as now presented. | | + + + + + | Procedure Note | + + | Service Account, Hickies Res In Interface - 09/03/2017 10:27 AM PDT Bilateral: The | | duplex scanner was used to examine the deep and superficial veins of the right and left | | lower extremities. The left common femoral and profunda femoral veins were not | | examined due to overlying bandages. All other veins are patent bilaterally with normal | | flow and responses to augmentation and compression maneuvers and no thrombus is | | noted.Conclusions: No deep or superficial venous thrombosis detected bilaterally. The | | left common femoral and profunda femoral veins were not examined. Limitations of the | | examination described above preclude the study from definitive exclusion of DVT. If | | clinical suspicion of DVT remains a follow-up study is suggested in 3 to 5 days.I have | | personally reviewed the images and, if necessary, edited the report. I agree with the | | report as now presented. | |I have personally reviewed the images and, if necessary, edited the report. I agree with t he report as now presented. | + + + +---------+ + + | Performing | Address | City/State/Zipcode | Phone Number | | Organization | | | | + +---------+ + + | [facility] | | | | | VASC [facility] | | | | + +---------+ + + CULTURE, AFB (ALL SPEC TYPES EXCEPT BLOOD) (09/03/2017 9:48 AM PDT) + + | Specimen | + + | Sputum - | | Expectorated | + + + + + | Narrative | Performed At | + + + | Culture Report: No acid fast bacteria isolated at 6 weeks. AFB | [facility] | | Smear: AFB not detected | [facility] - | | | [place] | + + + + + + + + | Performing | Address | City/State/Zipcode | Phone Number | | Organization | | | | + + + + + | [facility] | [address] | [place] [address] | | | [facility] | | | | + + + + + HEMATOCRIT (09/03/2017 5:12 AM PDT) + + + + + + | Component | Value | Ref Range | Performed | Pathologist | | | | | At | Signature | + + + + + + | HEMATOCRIT | 33.1 (L) | 41.0 - 53.0 % | [facility] | | | | | | LABORATORY | | | | | | SERVICES, | | | | | | CORE | | + + + + + + + + | Specimen | + + | Blood - Blood | | (substance) | + + + + + + + | Performing | Address | City/State/Zipcode | Phone Number | | Organization | | | | + + + + + | [facility] | [address] | [place] [address] | | | SERVICES, CORE | [address] | | | + + + + + X-RAY ABD LTD FEEDING TUBE EVAL (09/03/2017 4:32 AM PDT) + + | Specimen | + + | | + + + + + | Narrative | Performed At | + + + | EXAM: Single supine view of the abdomen. History: NGT placement | [facility] | | Comparison: 09/02/2017. IMPRESSION: Wires, leads, and tubing | RADIOLOGY VOICE | | obscure portions of the radiograph. Esophagogastric tube extends | RECOGNITION | | into the distal stomach. No evidence of bowel obstruction. | | | I have personally reviewed the images and, if necessary, edited the | | | report. I agree with the report as now presented. | | + + + + + | Procedure Note | + + | Service Account, Cloudant In Interface - 09/03/2017 9:54 AM PDT EXAM: Single | | supine view of the abdomen.History: NGT placementComparison: 09/02/2017.IMPRESSION:Wires, | | leads, and tubing obscure portions of the radiograph. Esophagogastric tube extends into | | the distal stomach. No evidence of bowel obstruction. I have personally reviewed the | | images and, if necessary, edited the report. I agree with the report as now presented. | | | |IMPRESSION: | | | |Wires, leads, and tubing obscure portions of the radiograph. Esophagogastric tube extends into the distal stomach. No evidence of bowel obstruction. | | | | | |I have personally reviewed the images and, if necessary, edited the report. I agree with t he report as now presented. | + + + +---------+ + + | Performing | Address | City/State/Zipcode | Phone Number | | Organization | | | | + +---------+ + + | [facility] | | | | | VOICE RECOGNITION | | | | + +---------+ + + CULTURE, AFB (ALL SPEC TYPES EXCEPT BLOOD) (09/03/2017 12:52 AM PDT) + + | Specimen | + + | Sputum - | | Expectorated | + + + + + | Narrative | Performed At | + + + | Culture Report: No acid fast bacteria isolated at 6 weeks. AFB | [facility] | | Smear: AFB not detected | [facility] - | | | [place] | + + + + + + + + | Performing | Address | City/State/Zipcode | Phone Number | | Organization | | | | + + + + + | [facility] | [address] | [place] [address] | | | [place] | | | | + + + + + BLOOD GASES, ARTERIAL - LAB (09/02/2017 11:37 PM PDT) + + + + + + | Component | Value | Ref Range | Performed | Pathologist | | | | | At | Signature | + + + + + + | FIO2 | 0.30 | | [facility] | | | ARTERIAL | | | LABORATORY | | | | | | SERVICES, | | | | | | CORE | | + + + + + + | PH ARTERIAL | 7.42 | 7.37 - 7.44 | [facility] | | | | | | LABORATORY | | | | | | SERVICES, | | | | | | CORE | | + + + + + + | PCO2 | 42 | 32 - 43 mmHg | [facility] | | | ARTERIAL | | | LABORATORY | | | | | | SERVICES, | | | | | | CORE | | + + + + + + | PO2 | 115 (H) | 72 - 104 mmHg | [facility] | | | ARTERIAL | | | LABORATORY | | | | | | SERVICES, | | | | | | CORE | | + + + + + + | HCO3 | 27 | 21 - 28 mmol/L | [facility] | | | ARTERIAL | | | LABORATORY | | | | | | SERVICES, | | | | | | CORE | | + + + + + + | TOTAL CO2 | 28 | 22 - 28 mmol/L | [facility] | | | ARTERIAL | | | LABORATORY | | | | | | SERVICES, | | | | | | CORE | | + + + + + + | BASE EXCESS | 2.6 (H) | -2.0 - 2.0 | [facility] | | | ARTERIAL | | mmol/L | LABORATORY | | | | | | SERVICES, | | | | | | CORE | | + + + + + + | O2 SAT, | 98.7 (H) | 92.0 - 98.0 % | [facility] | | | ARTERIAL | | | LABORATORY | | | | | | SERVICES, | | | | | | CORE | | + + + + + + | PAO2/FIO2 | 383 | >300 mmHg | [facility] | | | RATIO | | | LABORATORY | | | | | | SERVICES, | | | | | | CORE | | + + + + + + + + | Specimen | + + | Blood - Blood | | (substance) | + + + + + + + | Performing | Address | City/State/Zipcode | Phone Number | | Organization | | | | + + + + + | [email or web address] | [address] | [place] [address] | | | SERVICES, CORE | [address] | | | + + + + + CBC (HEMOGRAM) ONLY (09/02/2017 11:36 PM PDT) + + + + + + | Component | Value | Ref Range | Performed | Pathologist | | | | | At | Signature | + + + + + + | WHITE CELL | 9.66 | 3.50 - 10.80 | [facility] | | | COUNT | | K/cu mm | LABORATORY | | | | | | SERVICES, | | | | | | CORE | | + + + + + + | RED CELL | 3.44 (L) | 4.50 - 6.00 | [facility] | | | COUNT | | M/cu mm | LABORATORY | | | | | | SERVICES, | | | | | | CORE | | + + + + + + | HEMOGLOBIN | 10.1 (L) | 13.5 - 17.5 | [facility] | | | | | g/dL | LABORATORY | | | | | | SERVICES, | | | | | | CORE | | + + + + + + | HEMATOCRIT | 29.6 (L) | 41.0 - 53.0 % | [facility] | | | | | | LABORATORY | | | | | | SERVICES, | | | | | | CORE | | + + + + + + | MCV | 86.0 | 80.0 - 96.0 fL | [facility] | | | | | | LABORATORY | | | | | | SERVICES, | | | | | | CORE | | + + + + + + | MCHC | 34.1 | 33.0 - 35.5 | [facility] | | | | | g/dL | LABORATORY | | | | | | SERVICES, | | | | | | CORE | | + + + + + + | RDW SD | 46.9 (H) | 35.1 - 46.3 fL | [facility] | | | | | | LABORATORY | | | | | | SERVICES, | | | | | | CORE | | + + + + + + | PLATELET | 84 (L) | 150 - 400 K/cu | [facility] | | | COUNT | | mm | LABORATORY | | | | | | SERVICES, | | | | | | CORE | | + + + + + + | MPV | 10.3 | 9.7 - 12.3 fL | [facility] | | | | | | LABORATORY | | | | | | SERVICES, | | | | | | CORE | | + + + + + + | NRBC% | 0.0 | 0.0 - 0.3 % | [facility] | | | | | | LABORATORY | | | | | | SERVICES, | | | | | | CORE | | + + + + + + | NRBC# | 0.00 | 0.00 - 0.02 | [facility] | | | | | K/cu mm | LABORATORY | | | | | | SERVICES, | | | | | | CORE | | + + + + + + + + | Specimen | + + | Blood - Blood | | (substance) | + + + + + + + | Performing | Address | City/State/Zipcode | Phone Number | | Organization | | | | + + + + + | [facility] | [address] | [place] [address] | | | SERVICES, CORE | [address] | | | + + + + + RENAL FUNCTION SET (NA,K,CL,CO2,BUN,CREAT,GLUC,CA,PHOS,ALB ) (09/02/2017 11:36 PM PDT) + + + + + + | Component | Value | Ref Range | Performed | Pathologist | | | | | At | Signature | + + + + + + | GLUCOSE, | 113 (H) | 70 - 99 mg/dL | [facility] | | | PLASMA | | | LABORATORY | | | (LAB) | | | SERVICES, | | | | | | CORE | | + + + + + + | BUN, PLASMA | 7 | 6 - 20 mg/dL | [facility] | | | (LAB) | | | LABORATORY | | | | | | SERVICES, | | | | | | CORE | | + + + + + + | CREATININE | 0.56 (L) | 0.70 - 1.30 | [facility] | | | PLASMA | | mg/dL | LABORATORY | | | (LAB) | | | SERVICES, | | | | | | CORE | | + + + + + + | EGFR | >60 | >60 mL/min | [facility] | | | - | | | LABORATORY | | | SUDANESE | | | SERVICES, | | | | | | CORE | | + + + + + + | EGFR NON | >60 | >60 mL/min | [facility] | | | -KAYE | | | LABORATORY | | | RICAN | | | SERVICES, | | | | | | CORE | | + + + + + + | SODIUM, | 147 (H) | 136 - 145 | [facility] | | | PLASMA | | mmol/L | LABORATORY | | | (LAB) | | | SERVICES, | | | | | | CORE | | + + + + + + | POTASSIUM, | 3.5 | 3.4 - 5.0 | [facility] | | | PLASMA | | mmol/L | LABORATORY | | | (LAB) | | | SERVICES, | | | | | | CORE | | + + + + + + | CHLORIDE, | 112 (H) | 97 - 108 mmol/L | [facility] | | | PLASMA | | | LABORATORY | | | (LAB) | | | SERVICES, | | | | | | CORE | | + + + + + + | TOTAL CO2, | 25 | 21 - 32 mmol/L | [facility] | | | PLASMA | | | LABORATORY | | | (LAB) | | | SERVICES, | | | | | | CORE | | + + + + + + | CALCIUM, | 7.1 (L) | 8.6 - 10.2 | [facility] | | | PLASMA | | mg/dL | LABORATORY | | | (LAB) | | | SERVICES, | | | | | | CORE | | + + + + + + | CALCIUM(ALB | 8.9 | 8.6 - 10.2 | [facility] | | | CORRECTED) | | mg/dL | LABORATORY | | | | | | SERVICES, | | | | | | CORE | | + + + + + + | ALBUMIN, | 1.7 (L) | 3.5 - 4.7 g/dL | [facility] | | | PLASMA | | | LABORATORY | | | (LAB) | | | SERVICES, | | | | | | CORE | | + + + + + + | PHOSPHORUS, | 2.9 | 2.4 - 4.7 mg/dL | [facility] | | | PLASMA | | | LABORATORY | | | (LAB) | | | SERVICES, | | | | | | CORE | | + + + + + + | POTASSIUM | No Hemo | | [facility] | | | CMNT | | | LABORATORY | | | | | | SERVICES, | | | | | | CORE | | + + + + + + | ANION GAP | 10 | 4 - 11 mmol/L | [facility] | | | | | | LABORATORY | | | | | | SERVICES, | | | | | | CORE | | + + + + + + | ANION | 15 (H) | 4 - 11 mmol/L | [facility] | | | GAP(ALB | | | LABORATORY | | | CORRECTED) | | | SERVICES, | | | | | | CORE | | + + + + + + + + | Specimen | + + | Blood - Blood | | (substance) | + + + + + | Narrative | Performed At | + + + | GFR is estimated using the MDRD equation recommended by the | [facility] | | National Kidney Disease Education Program. Estimated GFR | LABORATORY | | Interpretive Information: <60 mL/min/1.73 sq m | SERVICES, CORE | | Chronic Kidney Disease <15 mL/min/1.73 sq m | | | Kidney Failure Estimated GFR greater that 60 mL/min/1.73 sq m is of | | | limited clinical value. The MDRD equation is not valid in the | | | following situations: - Patients under 18 years of age - Severe | | | malnutrition or obesity - Vegetarian diet - Rapidly changing kidney | | | function - Amputees, paraplegics, or other muscle-wasting diseses | | + + + + + + + + | Performing | Address | City/State/Zipcode | Phone Number | | Organization | | | | + + + + + | [facility] | [address] | [place] [address] | | | [place], NATALEE | [address] | | | + + + + + MAGNESIUM, PLASMA (09/02/2017 11:36 PM PDT) + +-------+ + + + | Component | Value | Ref Range | Performed | Pathologist | | | | | At | Signature | + +-------+ + + + | MAGNESIUM,P | 1.8 | 1.6 - 2.6 mg/dL | [facility] | | | LASMA | | | LABORATORY | | | | | | ELIN, | | | | | | NATALEE | | + +-------+ + + + + + | Specimen | + + | Blood - Blood | | (substance) | + + + + + | Narrative | Performed At | + + + | Reference range change effective 12/11/16. | [facility] | | | LABORATORY | | | SERVICES, CORE | + + + + + + + + | Performing | Address | City/State/Zipcode | Phone Number | | Organization | | | | + + + + + | [facility] | [address] | [place] [id number] | | | SERVICES, [facility] | [address] | | | + + + + + OPERATION RECORD (09/02/2017 6:53 PM PDT) + + | Procedure Note | + + | Fidelina Shields MD - 09/02/2017 6:53 PM PDT Date of Service: 09/02/2017 | | Attending Surgeon: Fidelina Shields MD Jira Administrator(s): | | Ajay Butts MD, resident. Preoperative Diagnosis: Status post | | damage control laparotomy, second look.Postoperative Diagnoses: 1. Splenic capsule | | laceration.2. Small bowel mesenteric hematoma, stable. 3. Partial small bowel mesenteric | | defect.4. Partial sigmoid colon mesentery defect.5. 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 He did have a | | small amount of bile staining at the superior aspect of his incision and as such, the | | abdomen was explored completely including opening of the lesser sac. There was no | | evidence of bowel injury or other explanation for the bile staining. He also, through | | this process, was found to have a mild amount of bleeding from the left upper quadrant | | that was thought to be secondary to both the splenic capsule laceration as well as | | possibly raw surfaces of the omentum. Hemostasis was obtained prior to closure, both | | the suture ligatures, cautery and topical hemostatic agents.Procedure In Detail: The | | patient was brought in the operating room, placed on the operative table in the supine | | position. He had previously been intubated and his abdomen was prepped and draped in a | | normal sterile fashion. The DME wound VAC was removed and exploration ensued. The | | patient was noted to have a small amount of bile staining at the superior aspect of his | | incision. The abdomen was explored in a systematic manner. The 3 laparotomy pads left | | in the abdomen at the end of the initial exploration were removed. The small bowel was | | run in its entirety from the ligament of Treitz to the ileocecal valve. His prior | | small-bowel mesenteric hematomas were noted to be stable, and there was no evidence of | | devitalized bowel or other injury. As before, there was a partial avulsion of this | | mesentery off the retroperitoneum from the ileocecal valve to the ligament of treitz, | | but there was no through and through injury that would place him a risk for a future | | internal hernia and the bowel was well perfused. The colon was run in its entirety, | | also without any evidence of devitalization or other injury. The pelvic retroperitoneal | | hematomas were stable. The right and left upper quadrants were explored with no | | revealing injury to the liver. The left upper quadrant was noted to have a small amount | | of blood with bleeding from both the splenic capsule laceration as well as the raw | | surface of the omentum. Hemostasis was achieved with electrocautery, suture ligature, | | surgicel and Alvin. The lesser sac was opened along the gastrocolic ligament and the | | posterior side of the stomach explored without any evidence of injury. The anterior | | surface of the stomach was examined and the previous staple line was imbricated with | | three 2-0 silk Lembert stitches. The hepatic flexure of the colon was mobilized to gain | | better visualization of the duodenum, which was not revealing for any injury or further | | bile leak. Between mobilizing the hepatic flexure and the partial mesenteric avulsion | | up to the ileocecal valve, we could see the whole duodenum. The abdomen was then | | irrigated and it was decided at that point for completion and closure. Number one Maxon | | Smead-Khalil stitches were placed and the fascia closed in its entirety. The wound was | | irrigated, and the skin approximated with fernandez. A Provena was placed over the | | incision. Prior to completion of closure, a completion set of x-rays was obtained and | | confirmed no retained sponges. All counts were correct at the end of the case. | | Bailey Shields was scrubbed and present for the entirety. The patient tolerated the | | procedure well and was transferred to the ICU in stable condition.Ajay Butts, | | MDMashona Shields MDTBK/MODLDD: 09/02/2017 18:15:29DT: 09/02/2017 18:53:52Job #: | | [id number] to federal Medicare and Medicaid regulations I was present for | | the entire procedure.Fidelina Shields MDAssistant ProfessorDepartment of SurgeryOffice: | | [phone]: [id number] has been electronically signed by Fidelina Shields MD, | | 09/03/2017 at 9:11 AM. | | | | | |Fidelina Shields MD | |Town Administrator | |Department of Surgery | |Office: [phone] | |Pager: [phone] | | | |This has been electronically signed by Fidelina Shields MD, 09/03/2017 at 9:11 AM. | + + HEMATOCRIT (09/02/2017 5:50 PM PDT) + + + + + + | Component | Value | Ref Range | Performed | Pathologist | | | | | At | Signature | + + + + + + | HEMATOCRIT | 32.1 (L) | 41.0 - 53.0 % | [facility] | | | | | | LABORATORY | | | | | | SERVICES, | | | | | | CORE | | + + + + + + + + | Specimen | + + | Blood - Blood | | (substance) | + + + + + + + | Performing | Address | City/State/Zipcode | Phone Number | | Organization | | | | + + + + + | [facility] | [address] | [place] [address] | | | SERVICES, CORE | [address] | | | + + + + + BLOOD GASES, ARTERIAL - LAB (09/02/2017 5:49 PM PDT) + + + + + + | Component | Value | Ref Range | Performed | Pathologist | | | | | At | Signature | + + + + + + | FIO2 | 0.30Comment: 37.0 | | [facility] | | | ARTERIAL | | | LABORATORY | | | | | | SERVICES, | | | | | | CORE | | + + + + + + | PH ARTERIAL | 7.50 (H) | 7.37 - 7.44 | [facility] | | | | | | LABORATORY | | | | | | SERVICES, | | | | | | CORE | | + + + + + + | PCO2 | 34 | 32 - 43 mmHg | [facility] | | | ARTERIAL | | | LABORATORY | | | | | | SERVICES, | | | | | | CORE | | + + + + + + | PO2 | 117 (H) | 72 - 104 mmHg | [facility] | | | ARTERIAL | | | LABORATORY | | | | | | SERVICES, | | | | | | CORE | | + + + + + + | HCO3 | 26 | 21 - 28 mmol/L | [facility] | | | ARTERIAL | | | LABORATORY | | | | | | SERVICES, | | | | | | CORE | | + + + + + + | TOTAL CO2 | 27 | 22 - 28 mmol/L | [facility] | | | ARTERIAL | | | LABORATORY | | | | | | SERVICES, | | | | | | CORE | | + + + + + + | BASE EXCESS | 3.2 (H) | -2.0 - 2.0 | [facility] | | | ARTERIAL | | mmol/L | LABORATORY | | | | | | SERVICES, | | | | | | CORE | | + + + + + + | O2 SAT, | 98.7 (H) | 92.0 - 98.0 % | [facility] | | | ARTERIAL | | | LABORATORY | | | | | | SERVICES, | | | | | | CORE | | + + + + + + | PAO2/FIO2 | 390 | >300 mmHg | [facility] | | | RATIO | | | LABORATORY | | | | | | SERVICES, | | | | | | CORE | | + + + + + + + + | Specimen | + + | Blood - Blood | | (substance) | + + + + + + + | Performing | Address | City/State/Zipcode | Phone Number | | Organization | | | | + + + + + | [facility] | [address] | [place] [address] | | | SERVICES, CORE | [address] | | | + + + + + CULTURE, AFB (ALL SPEC TYPES EXCEPT BLOOD) (09/02/2017 5:10 PM PDT) + + | Specimen | + + | Sputum - | | Expectorated | + + + + + | Narrative | Performed At | + + + | Culture Report: No acid fast bacteria isolated at 6 weeks. AFB | [facility] | | Smear: AFB not detected | [facility] | | | [place] | + + + + + + + + | Performing | Address | City/State/Zipcode | Phone Number | | Organization | | | | + + + + + | [facility] | [address] | [place] [address] | | | [place] | | | | + + + + + MAGNESIUM, PLASMA (09/02/2017 4:14 PM PDT) + +-------+ + + + | Component | Value | Ref Range | Performed | Pathologist | | | | | At | Signature | + +-------+ + + + | MAGNESIUM,P | 2.0 | 1.6 - 2.6 mg/dL | [facility] | | | LASMA | | | LABORATORY | | | | | | SERVICES, | | | | | | CORE | | + +-------+ + + + + + | Specimen | + + | Blood - Blood | | (substance) | + + + + + | Narrative | Performed At | + + + | Reference range change effective 12/11/16. | [facility] | | | LABORATORY | | | [place] | + + + + + + + + | Performing | Address | City/State/Zipcode | Phone Number | | Organization | | | | + + + + + | [facility] | [address] | [place] [address] | | | SERVICES, NATALEE | [address] | | | + + + + + RENAL FUNCTION SET (NA,K,CL,CO2,BUN,CREAT,GLUC,CA,PHOS,ALB ) (09/02/2017 4:14 PM PDT) + + + + + + | Component | Value | Ref Range | Performed | Pathologist | | | | | At | Signature | + + + + + + | GLUCOSE, | 119 (H) | 70 - 99 mg/dL | [facility] | | | PLASMA | | | LABORATORY | | | (LAB) | | | SERVICES, | | | | | | CORE | | + + + + + + | BUN, PLASMA | 5 (L) | 6 - 20 mg/dL | [facility] | | | (LAB) | | | LABORATORY | | | | | | SERVICES, | | | | | | CORE | | + + + + + + | CREATININE | 0.52 (L) | 0.70 - 1.30 | [facility] | | | PLASMA | | mg/dL | LABORATORY | | | (LAB) | | | SERVICES, | | | | | | CORE | | + + + + + + | EGFR | >60 | >60 mL/min | [facility] | | | - | | | LABORATORY | | | SUDANESE | | | SERVICES, | | | | | | CORE | | + + + + + + | EGFR NON | >60 | >60 mL/min | [facility] | | | -KAYE | | | LABORATORY | | | RICAN | | | SERVICES, | | | | | | CORE | | + + + + + + | SODIUM, | 144 | 136 - 145 | [facility] | | | PLASMA | | mmol/L | LABORATORY | | | (LAB) | | | SERVICES, | | | | | | CORE | | + + + + + + | POTASSIUM, | 4.0 | 3.4 - 5.0 | [facility] | | | PLASMA | | mmol/L | LABORATORY | | | (LAB) | | | SERVICES, | | | | | | CORE | | + + + + + + | CHLORIDE, | 111 (H) | 97 - 108 mmol/L | [facility] | | | PLASMA | | | LABORATORY | | | (LAB) | | | SERVICES, | | | | | | CORE | | + + + + + + | TOTAL CO2, | 24 | 21 - 32 mmol/L | [facility] | | | PLASMA | | | LABORATORY | | | (LAB) | | | SERVICES, | | | | | | CORE | | + + + + + + | CALCIUM, | 7.4 (L) | 8.6 - 10.2 | [facility] | | | PLASMA | | mg/dL | LABORATORY | | | (LAB) | | | SERVICES, | | | | | | CORE | | + + + + + + | CALCIUM(ALB | 9.1 | 8.6 - 10.2 | [facility] | | | CORRECTED) | | mg/dL | LABORATORY | | | | | | SERVICES, | | | | | | CORE | | + + + + + + | ALBUMIN, | 1.9 (L) | 3.5 - 4.7 g/dL | [facility] | | |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 | 2.4 - 4.7 mg/dL | [facility] | | | PLASMA | | | LABORATORY | | | (LAB) | | | SERVICES, | | | | | | CORE | | + + + + + + | POTASSIUM | No Hemo | | [facility] | | | CMNT | | | LABORATORY | | | | | | SERVICES, | | | | | | CORE | | + + + + + + | ANION GAP | 5 | 4 - 11 mmol/L | [facility] | | | | | | LABORATORY | | | | | | SERVICES, | | | | | | CORE | | + + + + + + | ANION | 9 | 4 - 11 mmol/L | [facility] | | | GAP(ALB | | | LABORATORY | | | CORRECTED) | | | SERVICES, | | | | | | CORE | | + + + + + + + + | Specimen | + + | Blood - Blood | | (substance) | + + + + + | Narrative | Performed At | + + + | GFR is estimated using the MDRD equation recommended by the | [facility] | | National Kidney Disease Education Program. Estimated GFR | LABORATORY | | Interpretive Information: <60 mL/min/1.73 sq m | SERVICES, CORE | | Chronic Kidney Disease <15 mL/min/1.73 sq m | | | Kidney Failure Estimated GFR greater that 60 mL/min/1.73 sq m is of | | | limited clinical value. The MDRD equation is not valid in the | | | following situations: - Patients under 18 years of age - Severe | | | malnutrition or obesity - Vegetarian diet - Rapidly changing kidney | | | function - Amputees, paraplegics, or other muscle-wasting diseses | | + + + + + + + + | Performing | Address | City/State/Zipcode | Phone Number | | Organization | | | | + + + + + | [facility] | [address] | [place] [address] | | | SERVICES, CORE | [address] | | | + + + + + MAGNESIUM, PLASMA (09/01/2017 11:16 PM PDT) + +-------+ + + + | Component | Value | Ref Range | Performed | Pathologist | | | | | At | Signature | + +-------+ + + + | MAGNESIUM,P | 1.6 | 1.6 - 2.6 mg/dL | [facility] | | | LASMA | | | LABORATORY | | | | | | ELIN, | | | | | | CORE | | + +-------+ + + + + + | Specimen | + + | Blood - Blood | | (substance) | + + + + + | Narrative | Performed At | + + + | Reference range change effective 12/11/16. | [facility] | | | LABORATORY | | | SERVICES, CORE | + + + + + + + + | Performing | Address | City/State/Zipcode | Phone Number | | Organization | | | | + + + + + | [facility] | [address] | [place] [address] | | | SERVICES, NATALEE | [address] | | | + + + + + QUANTIFERON TB GOLD, BLOOD (09/01/2017 10:18 PM PDT) + + + + + + | Component | Value | Ref Range | Performed | Pathologist | | | | | At | Signature | + + + + + + | QUANTIFERON | NegativeComment: | Negative | [facility] - | | | TB GOLD | INTERPRETIVE | | AIRPORT - | | | | INFORMATION: | | [place] | | | | QuantiFERON-TB Gold | | | | | | In-TubeInterferon gamma | | | | | | release is measured for | | | | | | specimens from each of | | | | | | the three collection | | | | | | tubes. A qualitative | | | | | | result (Negative, | | | | | | Positive, or | | | | | | Indeterminate) is based | | | | | | on interpretation of the | | | | | | three values, NIL, | | | | | | MITOGEN minus NIL | | | | | | (MITOGEN-NIL), and TB | | | | | | minus NIL (TB-NIL). The | | | | | | NIL value represents | | | | | | nonspecific reactivity | | | | | | produced by the patient | | | | | | specimen. The | | | | | | MITOGEN-NIL value serves | | | | | | as the positive control | | | | | | for the patient | | | | | | specimen, demonstrating | | | | | | successful lymphocyte | | | | | | activity. The TB-NIL | | | | | | value represents | | | | | | lymphocyte reactivity | | | | | | specifically stimulated | | | | | | by the TB antigen. An | | | | | | overall Negative result | | | | | | does not completely rule | | | | | | out TB infection. A | | | | | | false-positive result in | | | | | | the absence of other | | | | | | clinical evidence of TB | | | | | | infection is not | | | | | | uncommon. Refer to: | | | | | | Updated Guidelines for | | | | | | Using Interferon Gamma | | | | | | Release Assays to Detect | | | | | | Mycobacterium | | | | | | tuberculosis Infection | | | | | | --- [place], 2009 | | | | | | (http://www.cdc.gov/mmwr | | | | | | /preview/mmwrhtml/[email or web address] | | | | | | [email or web address].htm), for information | | | | | | concerning test | | | | | | performance in | | | | | | low-prevalence | | | | | | populations and use in | | | | | | occupational screening. | | | | + + + + + + | NIL | 0.05Comment: Performed | IU/mL | [facility] - | | | | by [email or web address], | | AIRPORT - | | | | | | [place] | | | | [address] | | | | | | Rogel[address] [facility] [place] | | | | | | [address] | | | | | | | | | | | | www.[facility], Gui | | | | | | MD Ar[facility] - Gaby. | | | | | | Director | | | | + + + + + + | TB AG-NIL | 0.26 | 0.00 - 0.34 | [facility] - | | | | | IU/mL | AIRPORT - | | | | | | [place] | | + + + + + + | MITOGEN-NIL | 9.35 | IU/mL | [facility] - | | | | | | AIRPORT - | | | | | | [place] | | + + + + + + + + | Specimen | + + | Blood - Blood | | (substance) | + + + + + + + | Performing | Address | City/State/Zipcode | Phone Number | | Organization | | | | + + + + + | [facility] - | [address] | [place] [address] | | | [place] | | | | + + + + + LACTATE (09/01/2017 8:18 PM PDT) + +-------+ + + + | Component | Value | Ref Range | Performed | Pathologist | | | | | At | Signature | + +-------+ + + + | LACTATE | 1.6 | mmol/L | [facility] | | | | | | LABORATORY | | | | | | SERVICES, | | | | | | CORE | | + +-------+ + + + + + | Specimen | + + | Blood - Blood | | (substance) | + + + + + | Narrative | Performed At | + + + | Reference Range: Venous blood: 0.5 - 2.2 mmol/L Critical | [facility] | | >= 4.0 mmol/L Arterial blood: 0.5 - 1.6 mmol/L Critical >= 4.0 | LABORATORY | | mmol/L | SERVICES, CORE | + + + + + + + + | Performing | Address | City/State/Zipcode | Phone Number | | Organization | | | | + + + + + | [facility] | [address] | [place] [address] | | | SERVICES, CORE | [address] | | | + + + + + BLOOD GASES, ARTERIAL - LAB (09/01/2017 8:18 PM PDT) + + + + + + | Component | Value | Ref Range | Performed | Pathologist | | | | | At | Signature | + + + + + + | FIO2 | 0.70 | | [facility] | | | ARTERIAL | | | LABORATORY | | | | | | SERVICES, | | | | | | CORE | | + + + + + + | PH ARTERIAL | 7.41 | 7.37 - 7.44 | [facility] | | | | | | LABORATORY | | | | | | SERVICES, | | | | | | CORE | | + + + + + + | PCO2 | 46 (H) | 32 - 43 mmHg | [facility] | | | ARTERIAL | | | LABORATORY | | | | | | SERVICES, | | | | | | CORE | | + + + + + + | PO2 | 191 (H) | 72 - 104 mmHg | [facility] | | | ARTERIAL | | | LABORATORY | | | | | | SERVICES, | | | | | | CORE | | + + + + + + | HCO3 | 29 (H) | 21 - 28 mmol/L | [facility] | | | ARTERIAL | | | LABORATORY | | | | | | SERVICES, | | | | | | CORE | | + + + + + + | TOTAL CO2 | 30 (H) | 22 - 28 mmol/L | [facility] | | | ARTERIAL | | | LABORATORY | | | | | | SERVICES, | | | | | | CORE | | + + + + + + | BASE EXCESS | 3.8 (H) | -2.0 - 2.0 | [facility] | | | ARTERIAL | | mmol/L | LABORATORY | | | | | | SERVICES, | | | | | | CORE | | + + + + + + | O2 SAT, | 99.4 (H) | 92.0 - 98.0 % | [facility] | | | ARTERIAL | | | LABORATORY | | | | | | SERVICES, | | | | | | CORE | | + + + + + + | PAO2/FIO2 | 273 (L) | >300 mmHg | [facility] | | | RATIO | | | LABORATORY | | | | | | SERVICES, | | | | | | CORE | | + + + + + + + + | Specimen | + + | Blood - Blood | | (substance) | + + + + + + + | Performing | Address | City/State/Zipcode | Phone Number | | Organization | | | | + + + + + | [facility] | [address] | [place] [address] | | | SERVICES, CORE | [address] | | | + + + + + X-RAY KNEE 2 VIEWS LEFT (09/01/2017 7:48 PM PDT) + + | Specimen | + + | | + + + + + | Narrative | Performed At | + + + | STUDY: KNEE 2 VIEWS LEFT HISTORY: Pain. COMPARISON: None. | [facility] | | FINDINGS: No evidence of acute fracture or dislocation. | RADIOLOGY VOICE | | Partially visualized distal femoral fixation hardware which appears | RECOGNITION | | intact. No significant knee joint effusion. The bones are diffusely | | | osteopenic. There is a region of nonaggressive sclerosis along the | | | medial aspect of the proximal tibial metadiaphysis which may be | | | remote posttraumatic in nature or represent the sequela of a | | | fibro-osseous process. IMPRESSION: No acute osseous | | | abnormalities. I have personally reviewed the images and, if | | | necessary, edited the report. I agree with the report as now | | | presented. | | + + + + + | Procedure Note | + + | Service Account, [employer] In Interface - 09/02/2017 8:55 AM PDT STUDY: KNEE 2 | | VIEWS LEFTHISTORY: Pain.COMPARISON: None.FINDINGS: No evidence of acute fracture or | | dislocation.Partially visualized distal femoral fixation hardware which appears intact. | | No significant knee joint effusion. The bones are diffusely osteopenic.There is a region | | of nonaggressive sclerosis along the medial aspect of the proximal tibial metadiaphysis | | which may be remote posttraumatic in nature or represent the sequela of a fibro-osseous | | process.IMPRESSION: No acute osseous abnormalities.I have personally reviewed the | | images and, if necessary, edited the report. I agree with the report as now presented. | |No evidence of acute fracture or dislocation. | | | |Partially visualized distal femoral fixation hardware which appears intact. No significant knee joint effusion. The bones are diffusely osteopenic. | | | |There is a region of nonaggressive sclerosis along the medial aspect of the proximal tibial metadiaphysis which may be remote posttraumatic in nature or represent the sequela of a fib ro-osseous process. | | | |IMPRESSION: | | | |No acute osseous abnormalities. | | | | | |I have personally reviewed the images and, if necessary, edited the report. I agree with t he report as now presented. | + + + +---------+ + + | Performing | Address | City/State/Zipcode | Phone Number | | Organization | | | | + +---------+ + + | [facility] | | | | | VOICE RECOGNITION | | | | + +---------+ + + X-RAY PORTABLE CHEST 1 VIEW (09/01/2017 6:14 PM PDT) + + | Specimen | + + | | + + + + + | Narrative | Performed At | + + + | EXAM: CO CHEST 1 VIEW HISTORY: Hypoxemia COMPARISON: 09/01/17 | [facility] | | FINDINGS: The endotracheal tube, gastric tube, and left | RADIOLOGY VOICE | | thoracostomy are unchanged. A radiopaque strip from a lap sponge is in | RECOGNITION | | the left upper quadrant. Accounting for rotation, the mediastinum | | | is unchanged. There is new right perihilar consolidation and a new | | | right pleural effusion. There is no discernible pneumothorax. Multiple | | | rib fractures are better evaluated on the recent CT. There is a | | | chronic left humeral deformity. IMPRESSION: New right | | | perihilar consolidation. Considering the rapid onset and volume loss, | | | this likely represents atelectasis. New small right pleural | | | effusion. Radiopaque strip in the left upper quadrant is | | | consistent with documented abdominal packing with lap sponges. | | | I have personally reviewed the images and, if necessary, edited the | | | report. I agree with the report as now presented. | | + + + + + | Procedure Note | + + | Service Account, Hick[employer] Res In Interface - 09/02/2017 10:34 AM PDT EXAM: CO CHEST 1 | | VIEW HISTORY: HypoxemiaCOMPARISON: 09/01/17INDINGS: The endotracheal tube, gastric tube, | | and left thoracostomy are unchanged. A radiopaque strip from a lap sponge is in the left | | upper quadrant.Accounting for rotation, the mediastinum is unchanged. There is new | | right perihilar consolidation and a new right pleural effusion. There is no discernible | | pneumothorax. Multiple rib fractures are better evaluated on the recent CT. There is a | | chronic left humeral deformity.IMPRESSION: New right perihilar consolidation. | | Considering the rapid onset and volume loss, this likely represents atelectasis.New | | small right pleural effusion.Radiopaque strip in the left upper quadrant is consistent | | with documented abdominal packing with lap sponges.I have personally reviewed the images | | and, if necessary, edited the report. I agree with the report as now presented. | |the recent CT. There is a chronic left humeral deformity. | | | |IMPRESSION: | | | |New right perihilar consolidation. Considering the rapid onset and volume loss, this likely represents atelectasis. | | | |New small right pleural effusion. | | | |Radiopaque strip in the left upper quadrant is consistent with documented abdominal packing with lap sponges. | | | | | |I have personally reviewed the images and, if necessary, edited the report. I agree with t he report as now presented. | + + + +---------+ + + | Performing | Address | City/State/Zipcode | Phone Number | | Organization | | | | + +---------+ + + | [facility] | | | | | VOICE RECOGNITION | | | | + +---------+ + + BLOOD GASES, ARTERIAL - LAB (09/01/2017 5:43 PM PDT) + + + + + + | Component | Value | Ref Range | Performed | Pathologist | | | | | At | Signature | + + + + + + | FIO2 | 0.70 | | [facility] | | | ARTERIAL | | | LABORATORY | | | | | | SERVICES, | | | | | | CORE | | + + + + + + | PH ARTERIAL | 7.29 (L) | 7.37 - 7.44 | [facility] | | | | | | LABORATORY | | | | | | SERVICES, | | | | | | CORE | | + + + + + + | PCO2 | 60 (H) | 32 - 43 mmHg | [facility] | | | ARTERIAL | | | LABORATORY | | | | | | SERVICES, | | | | | | CORE | | + + + + + + | PO2 | 95 | 72 - 104 mmHg | [facility] | | | ARTERIAL | | | LABORATORY | | | | | | SERVICES, | | | | | | CORE | | + + + + + + | HCO3 | 28 | 21 - 28 mmol/L | [facility] | | | ARTERIAL | | | LABORATORY | | | | | | SERVICES, | | | | | | CORE | | + + + + + + | TOTAL CO2 | 30 (H) | 22 - 28 mmol/L | [facility] | | | ARTERIAL | | | LABORATORY | | | | | | SERVICES, | | | | | | CORE | | + + + + + + | BASE EXCESS | 1.1 | -2.0 - 2.0 | [facility] | | | ARTERIAL | | mmol/L | LABORATORY | | | | | | SERVICES, | | | | | | CORE | | + + + + + + | O2 SAT, | 97.5 | 92.0 - 98.0 % | [facility] | | | ARTERIAL | | | LABORATORY | | | | | | SERVICES, | | | | | | CORE | | + + + + + + | PAO2/FIO2 | 136 (L) | >300 mmHg | [facility] | | | RATIO | | | LABORATORY | | | | | | SERVICES, | | | | | | CORE | | + + + + + + + + | Specimen | + + | Blood - Blood | | (substance) | + + + + + + + | Performing | Address | City/State/Zipcode | Phone Number | | Organization | | | | + + + + + | [facility] | [address] | [place] [address] | | | SERVICES, CORE | [address] | | | + + + + + HEMATOCRIT (09/01/2017 5:43 PM PDT) + + + + + + | Component | Value | Ref Range | Performed | Pathologist | | | | | At | Signature | + + + + + + | HEMATOCRIT | 34.1 (L) | 41.0 - 53.0 % | [facility] | | | | | | LABORATORY | | | | | | SERVICES, | | | | | | CORE | | + + + + + + + + | Specimen | + + | Blood - Blood | | (substance) | + + + + + + + | Performing | Address | City/State/Zipcode | Phone Number | | Organization | | | | + + + + + | [facility] | [address] | [place] [address] | | | SERVICES, CORE | [address] | | | + + + + + PRODUCT - PLATELET PHERESIS LEUKOREDUCED (09/01/2017 4:42 PM PDT) + + + + + + | Component | Value | Ref Range | Performed | Pathologist | | | | | At | Signature | + + + + + + | PRODUCT | PLATELETS PHERESIS | | [facility] | | | DESCRIPTION | LEUKOCYTE REDUCED | | LABORATORY | | | | | | SERVICES, | | | | | | TRANSFUSION | | | | | | MEDICINE | | + + + + + + | PRODUCT | [id number] | | [facility] | | | UNIT # | | | LABORATORY | | | | | | SERVICES, | | | | | | TRANSFUSION | | | | | | MEDICINE | | + + + + + + | UNIT ABO | O | | [facility] | | | | | | LABORATORY | | | | | | SERVICES, | | | | | | TRANSFUSION | | | | | | MEDICINE | | + + + + + + | UNIT RH | POS | | [facility] | | | | | | LABORATORY | | | | | | SERVICES, | | | | | | TRANSFUSION | | | | | | MEDICINE | | + + + + + + | STATUS OF | Presumed Transfused | | [facility] | | | UNIT | | | LABORATORY | | | | | | SERVICES, | | | | | | TRANSFUSION | | | | | | MEDICINE | | + + + + + + | EXPIRATION | [id number] | | [facility] | | | DATE | | | LABORATORY | | | | | | SERVICES, | | | | | | TRANSFUSION | | | | | | MEDICINE | | + + + + + + | BLOOD TYPE | | | [facility] | | | BARCODE | | | LABORATORY | | | | | | SERVICES, | | | | | | TRANSFUSION | | | | | | MEDICINE | | + + + + + + | BLOOD | [id number] | | [facility] | | | PRODUCT | | | LABORATORY | | | CODE | | | SERVICES, | | | | | | TRANSFUSION | | | | | | MEDICINE | | + + + + + + + + | Specimen | + + | | + + + + + + + | Performing | Address | City/State/Zipcode | Phone Number | | Organization | | | | + + + + + | [facility] | [address] | [place] [address] | | | SERVICES, | [address] | | | | TRANSFUSION MEDICINE | | | | + + + + + BLOOD GASES, ARTERIAL - LAB (09/01/2017 4:19 PM PDT) + + + + + + | Component | Value | Ref Range | Performed | Pathologist | | | | | At | Signature | + + + + + + | FIO2 | 0.50Comment: temperature | | [facility] | | | ARTERIAL | 36.4 | | LABORATORY | | | | | | SERVICES, | | | | | | CORE | | + + + + + + | PH ARTERIAL | 7.38 | 7.37 - 7.44 | [facility] | | | | | | LABORATORY | | | | | | SERVICES, | | | | | | CORE | | + + + + + + | PCO2 | 48 (H) | 32 - 43 mmHg | [facility] | | | ARTERIAL | | | LABORATORY | | | | | | SERVICES, | | | | | | CORE | | + + + + + + | PO2 | 61 (L) | 72 - 104 mmHg | [facility] | | | ARTERIAL | | | LABORATORY | | | | | | SERVICES, | | | | | | CORE | | + + + + + + | HCO3 | 28 | 21 - 28 mmol/L | [facility] | | | ARTERIAL | | | LABORATORY | | | | | | SERVICES, | | | | | | CORE | | + + + + + + | TOTAL CO2 | 29 (H) | 22 - 28 mmol/L | [facility] | | | ARTERIAL | | | LABORATORY | | | | | | SERVICES, | | | | | | CORE | | + + + + + + | BASE EXCESS | 2.6 (H) | -2.0 - 2.0 | [facility] | | | ARTERIAL | | mmol/L | LABORATORY | | | | | | SERVICES, | | | | | | CORE | | + + + + + + | O2 SAT, | 93.4 | 92.0 - 98.0 % | [facility] | | | ARTERIAL | | | LABORATORY | | | | | | SERVICES, | | | | | | CORE | | + + + + + + | PAO2/FIO2 | 122 (L) | >300 mmHg | [facility] | | | RATIO | | | LABORATORY | | | | | | SERVICES, | | | | | | CORE | | + + + + + + + + | Specimen | + + | Blood - Blood | | (substance) | + + + + + + + | Performing | Address | City/State/Zipcode | Phone Number | | Organization | | | | + + + + + | [facility] | [address] | [place] [address] | | | SERVICES, CORE | [address] | | | + + + + + LACTATE (09/01/2017 4:19 PM PDT) + +-------+ + + + | Component | Value | Ref Range | Performed | Pathologist | | | | | At | Signature | + +-------+ + + + | LACTATE | 1.6 | mmol/L | [facility] | | | | | | LABORATORY | | | | | | SERVICES, | | | | | | CORE | | + +-------+ + + + + + | Specimen | + + | Blood - Blood | | (substance) | + + + + + | Narrative | Performed At | + + + | Reference Range: Venous blood: 0.5 - 2.2 mmol/L Critical | [facility] | | >= 4.0 mmol/L Arterial blood: 0.5 - 1.6 mmol/L Critical >= 4.0 | LABORATORY | | mmol/L | SERVICES, CORE | + + + + + + + + | Performing | Address | City/State/Zipcode | Phone Number | | Organization | | | | + + + + + | [facility] | [address] | [place] [address] | | | SERVICES, CORE | [address] | | | + + + + + CBC (HEMOGRAM) ONLY (09/01/2017 3:12 PM PDT) + + + + + + | Component | Value | Ref Range | Performed | Pathologist | | | | | At | Signature | + + + + + + | WHITE CELL | 7.95 | 3.50 - 10.80 | [facility] | | | COUNT | | K/cu mm | LABORATORY | | | | | | SERVICES, | | | | | | CORE | | + + + + + + | RED CELL | 3.82 (L) | 4.50 - 6.00 | [facility] | | | COUNT | | M/cu mm | LABORATORY | | | | | | SERVICES, | | | | | | CORE | | + + + + + + | HEMOGLOBIN | 11.1 (L) | 13.5 - 17.5 | [facility] | | | | | g/dL | LABORATORY | | | | | | SERVICES, | | | | | | CORE | | + + + + + + | HEMATOCRIT | 32.7 (L) | 41.0 - 53.0 % | [facility] | | | | | | LABORATORY | | | | | | SERVICES, | | | | | | CORE | | + + + + + + | MCV | 85.6 | 80.0 - 96.0 fL | [facility] | | | | | | LABORATORY | | | | | | SERVICES, | | | | | | CORE | | + + + + + + | MCHC | 33.9 | 33.0 - 35.5 | [facility] | | | | | g/dL | LABORATORY | | | | | | SERVICES, | | | | | | CORE | | + + + + + + | RDW SD | 45.8 | 35.1 - 46.3 fL | [facility] | | | | | | LABORATORY | | | | | | SERVICES, | | | | | | CORE | | + + + + + + | PLATELET | 79 (L) | 150 - 400 K/cu | [facility] | | | COUNT | | mm | LABORATORY | | | | | | SERVICES, | | | | | | CORE | | + + + + + + | MPV | 9.8 | 9.7 - 12.3 fL | [facility] | | | | | | LABORATORY | | | | | | SERVICES, | | | | | | CORE | | + + + + + + | NRBC% | 0.0 | 0.0 - 0.3 % | [facility] | | | | | | LABORATORY | | | | | | SERVICES, | | | | | | CORE | | + + + + + + | NRBC# | 0.00 | 0.00 - 0.02 | [facility] | | | | | K/cu mm | LABORATORY | | | | | | SERVICES, | | | | | | CORE | | + + + + + + + + | Specimen | + + | Blood - Blood | | (substance) | + + + + + + + | Performing | Address | City/State/Zipcode | Phone Number | | Organization | | | | + + + + + | [facility] | [address] | [place] [address] | | | SERVICES, CORE | [address] | | | + + + + + COMPLETE METABOLIC SET (NA,K,CL,CO2,BUN,CREAT,GLUC,CA,AST,ALT,BILI TOTAL,ALK PHOS,ALB,PROT TOTAL) (09/01/2017 3:12 PM PDT) + + + + + + | Component | Value | Ref Range | Performed | Pathologist | | | | | At | Signature | + + + + + + | GLUCOSE, | 126 (H) | 70 - 99 mg/dL | [facility] | | | PLASMA | | | LABORATORY | | | (LAB) | | | SERVICES, | | | | | | CORE | | + + + + + + | BUN, PLASMA | 7 | 6 - 20 mg/dL | [facility] | | | (LAB) | | | LABORATORY | | | | | | SERVICES, | | | | | | CORE | | + + + + + + | CREATININE | 0.55 (L) | 0.70 - 1.30 | [facility] | | | PLASMA | | mg/dL | LABORATORY | | | (LAB) | | | SERVICES, | | | | | | CORE | | + + + + + + | EGFR | >60 | >60 mL/min | [facility] | | | - | | | LABORATORY | | | SUDANESE | | | SERVICES, | | | | | | CORE | | + + + + + + | EGFR NON | >60 | >60 mL/min | [facility] | | | -KAYE | | | LABORATORY | | | RICAN | | | SERVICES, | | | | | | CORE | | + + + + + + | SODIUM, | 145 | 136 - 145 | [facility] | | | PLASMA | | mmol/L | LABORATORY | | | (LAB) | | | SERVICES, | | | | | | CORE | | + + + + + + | POTASSIUM, | 3.7 | 3.4 - 5.0 | [facility] | | | PLASMA | | mmol/L | LABORATORY | | | (LAB) | | | SERVICES, | | | | | | CORE | | + + + + + + | CHLORIDE, | 112 (H) | 97 - 108 mmol/L | [facility] | | | PLASMA | | | LABORATORY | | | (LAB) | | | SERVICES, | | | | | | CORE | | + + + + + + | TOTAL CO2, | 28 | 21 - 32 mmol/L | [facility] | | | PLASMA | | | LABORATORY | | | (LAB) | | | SERVICES, | | | | | | CORE | | + + + + + + | CALCIUM, | 7.6 (L) | 8.6 - 10.2 | [facility] | | | PLASMA | | mg/dL | LABORATORY | | | (LAB) | | | SERVICES, | | | | | | CORE | | + + + + + + | CALCIUM(ALB | 9.0 | 8.6 - 10.2 | [facility] | | | CORRECTED) | | mg/dL | LABORATORY | | | | | | SERVICES, | | | | | | CORE | | + + + + + + | BILIRUBIN | 1.2 | 0.3 - 1.2 mg/dL | [facility] | | | TOTAL | | | LABORATORY | | | | | | SERVICES, | | | | | | CORE | | + + + + + + | TOTAL | 4.7 (L) | 6.4 - 8.2 g/dL | [facility] | | | PROTEIN, | | | LABORATORY | | | PLASMA | | | SERVICES, | | | (LAB) | | | CORE | | + + + + + + | ALBUMIN, | 2.2 (L) | 3.5 - 4.7 g/dL | [facility] | | | PLASMA | | | LABORATORY | | | (LAB) | | | SERVICES, | | | | | | CORE | | + + + + + + | ALK PHOS | 101 | 56 - 119 U/L | [facility] | | | | | | LABORATORY | | | | | | SERVICES, | | | | | | CORE | | + + + + + + | AST(SGOT) | 39 | <=41 U/L | [facility] | | | | | | LABORATORY | | | | | | SERVICES, | | | | | | CORE | | + + + + + + | ALT (SGPT) | 30 | <=60 U/L | [facility] | | | | | | LABORATORY | | | | | | SERVICES, | | | | | | CORE | | + + + + + + | ANION GAP | 5 | 4 - 11 mmol/L | [facility] | | | | | | LABORATORY | | | | | | SERVICES, | | | | | | CORE | | + + + + + + | ANION | 9 | 4 - 11 mmol/L | [facility] | | | GAP(ALB | | | LABORATORY | | | CORRECTED) | | | SERVICES, | | | | | | CORE | | + + + + + + | POTASSIUM | No Hemo | | [facility] | | | CMNT | | | LABORATORY | | | | | | SERVICES, | | | | | | CORE | | + + + + + + | BILI T CMNT | No Hemo | | [facility] | | | | | | LABORATORY | | | | | | SERVICES, | | | | | | CORE | | + + + + + + | AST CMNT | No Hemo | | [facility] | | | | | | LABORATORY | | | | | | SERVICES, | | | | | | CORE | | + + + + + + + + | Specimen | + + | Blood - Blood | | (substance) | + + + + + | Narrative | Performed At | + + + | GFR is estimated using the MDRD equation recommended by the | [facility] | | National Kidney Disease Education Program. Estimated GFR | LABORATORY | | Interpretive Information: <60 mL/min/1.73 sq m | SERVICES, CORE | | Chronic Kidney Disease <15 mL/min/1.73 sq m | | | Kidney Failure Estimated GFR greater that 60 mL/min/1.73 sq m is of | | | limited clinical value. The MDRD equation is not valid in the | | | following situations: - Patients under 18 years of age - Severe | | | malnutrition or obesity - Vegetarian diet - Rapidly changing kidney | | | function - Amputees, paraplegics, or other muscle-wasting diseses | | + + + + + + + + | Performing | Address | City/State/Zipcode | Phone Number | | Organization | | | | + + + + + | [email or web address] | [phone] | [place] [address] | | | SERVICES, [place] | [address] | | | + + + + + LACTATE (09/01/2017 3:12 PM PDT) + + + + + + | Component | Value | Ref Range | Performed | Pathologist | | | | | At | Signature | + + + + + + | LACTATE | Comment: This is a | mmol/L | [facility] | | | | corrected result. | | LABORATORY | | | | Previous result was 1.9 | | SERVICES, | | | | mmol/L on 09/01/2017 at | | CORE | | | | 1531 PDT. | | | | + + + + + + + + | Specimen | + + | Blood - Blood | | (substance) | + + + + + | Narrative | Performed At | + + + | Cap came off in bag before received. Sample rejected due to air | [facility] | | contamination. Crediting patient. Reference Range: Venous blood: | LABORATORY | | 0.5 - 2.2 mmol/L Critical >= 4.0 mmol/L Arterial blood: 0.5 - | [facility], CORE | | 1.6 mmol/L Critical >= 4.0 mmol/L | | + + + + + + + + | Performing | Address | City/State/Zipcode | Phone Number | | Organization | | | | + + + + + | [facility] | [phone] | [place] [address] | | | [place] | [address] | | | + + + + + CALCIUM, IONIZED, WHOLE BLOOD (09/01/2017 3:12 PM PDT) + + + + + + | Component | Value | Ref Range | Performed | Pathologist | | | | | At | Signature | + + + + + + | [facility] ICA, | Comment: This is a | 1.14 - 1.32 | [facility] | | | WHOLE BLD | corrected result. | mmol/L | LABORATORY | | | | Previous result was 1.19 | | SERVICES, | | | | mmol/L on 09/01/2017 at | | CORE | | | | 1531 PDT. | | | | + + + + + + | PH, WHOLE | Comment: This is a | | [facility] | | | BLOOD | corrected result. | | LABORATORY | | | | Previous result was 7.41 | | SERVICES, | | | | on 09/01/2017 at 1531 | | CORE | | | | PDT. | | | | + + + + + + | ICA, | Comment: This is a | 1.14 - 1.28 | [facility] | | | CORRECTED | corrected result. | mmol/L | LABORATORY | | | TO PH 7.4 | Previous result was 1.20 | | SERVICES, | | | | mmol/L on 09/01/2017 at | | CORE | | | | 1531 PDT. | | | | + + + + + + + + | Specimen | + + | Blood - Blood | | (substance) | + + + + + | Narrative | Performed At | + + + | Cap came off in bag before received. Sample rejected due to air | [facility] | | contamination. Crediting patient. | LABORATORY | | | SERVICES, CORE | + + + + + + + + | Performing | Address | City/State/Zipcode | Phone Number | | Organization | | | | + + + + + | [facility] | [address] | [place] [address] | | | SERVICES, [place] | [address] | | | + + + + + IR EMBOLIZATION YAN (09/01/2017 2:06 PM PDT) + + | Specimen | + + | | + + + + + | Narrative | Performed At | + + + | Procedure: Selective visceral arteriography. IR Attending: | [facility] | | Marquez Hubbard MD, PhD IR Fellow: George Shah MD VS | RADIOLOGY VOICE | | Fellow: Trey Thomas MD Preoperative diagnosis: pelvic trauma, | RECOGNITION | | concern for continued bleeding Postoperative diagnosis: same, no | | | bleeding/extravasation identified. Operations: Operation 1. | | | Access to the right common femoral artery. Operation 2. | | | Selective catheterization of the distal abdominal aorta. Digital | | | subtraction arteriography (DSA) evaluation of the pelvic vascular | | | supply. Operation 3. Selective catheterization of the left | | | internal iliac artery and DSA evaluation of the pelvic vascular supply | | | in multiple oblique projections. Operation 4. Selective | | | catheterization of the right internal iliac artery and DSA evaluation. | | | Operation 5. Embolization of the distal branch vessel feeding | | | the hepatic lesion. Operation 6. Post embolization DSA | | | evaluation. Operation 7. Hemostasis obtained via manual | | | compression. Indications: trauma Anesthesia was utilized | | | for this case in conjunction with trauma surgery and the pelvic | | | surgery/exploration/packing. Please see their records for full | | | medication list. Contrast: 80 mL intra-arterial, Omnipaque 30 | | | Complications: None immediate. Fluoroscopy time: 22 min and 6 | | | sec Procedure: The attending physician was present for the entire | | | procedure. Written informed consent was obtained in a PARQ conference | | | with the patient. The patient was prepped and draped in the | | | usual manner. After trauma surgery had completed the abdominal/pelvic | | | surgery and packed/closed the abdomen, the VS surgery and IR fellows | | | were included in the procedure. A 21G needle was inserted into the | | | right common femoral artery. Using Seldinger technique, the | | | micropuncture access set was exchanged for a [employer] wire. Under | | | fluoroscopic guidance, a 5 Fr flush catheter was used to evaluate the | | | distal abdominal aorta and pelvic vasculature. A wire and catheter | | | were then used to select the left common and internal iliac arteries | | | from the right MAC DEVELOPER approach. DSA was performed from the left | | | internal iliac artery in multiple magnified oblique projections. The | | | same catheter and wire were then used to select the right internal | | | iliac artery and repeat DSA was performed. The catheters and wires | | | were then removed and manual compression was applied to the puncture | | | site until hemostasis was achieved. Findings: The distal | | | abdominal aortogram demonstrates a relatively normal course and | | | caliber of the pelvic vasculature. Selective DSA of the left | | | internal iliac artery from the right common femoral access SMA | | | evaluation demonstrates somewhat attenuated vasculature adjacent to | | | the pelvic ring fractures. There are two areas of focal "delayed" | | | contrast identified adjacent to the fracture that likely represent | | | marrow perfusional changes, with no clear evidence of contrast | | | extravasation. Similarly, the right internal iliac artery | | | demonstrates a normal course and caliber. No areas of extravasation | | | were identified. Contrast was seen flowing into the bladder from the | | | adjacent ureter. Impression: 1. The patient has classic | | | hepatic arterial anatomy. 2. The portal vein is patent. 3. | | | Uneventful selective pelvic arteriogram with no evidence of | | | extravasation. Post trauma changes in the vascularity are | | | identified. PLAN: Admit for overnight observation, pain, and | | | nausea control. Continue bleeding surveillance as planned. I | | | have personally reviewed the images and, if necessary, edited the | | | report. I agree with the report as now presented. | | + + + + + | Procedure Note | + + | Service Account, Radiant Res In Interface - 09/01/2017 4:07 PM PDT Procedure: | | Selective visceral arteriography.IR Attending: Marquez Hubbard MD, PhDIR Fellow: | | George Shah Fellow: Trey Thomas MDPreoperative diagnosis: pelvic trauma, | | concern for continued bleedingPostoperative diagnosis: same, no bleeding/extravasation | | identified. Operations:Operation 1. Access to the right common femoral artery.Operation | | 2. Selective catheterization of the distal abdominal aorta. Digital subtraction | | arteriography (DSA) evaluation of the pelvic vascular supply.Operation 3. Selective | | catheterization of the left internal iliac artery and DSA evaluation of the pelvic | | vascular supply in multiple oblique projections.Operation 4. Selective catheterization | | of the right internal iliac artery and DSA evaluation. Operation 5. Embolization of the | | distal branch vessel feeding the hepatic lesion. Operation 6. Post embolization DSA | | evaluation. Operation 7. Hemostasis obtained via manual compression. | | Indications:traumaAnesthesia was utilized for this case in conjunction with trauma | | surgery and the pelvic surgery/exploration/packing. Please see their records for full | | medication list. Contrast: 80 mL intra-arterial, Omnipaque 30Complications: None | | immediate.Fluoroscopy time: 22 min and 6 secProcedure:The attending physician was | | present for the entire procedure. Written informed consent was obtained in a PARQ | | conference with the patient. The patient was prepped and draped in the usual manner. | | After trauma surgery had completed the abdominal/pelvic surgery and packed/closed the | | abdomen, the VS surgery and IR fellows were included in the procedure. A 21G needle was | | inserted into the right common femoral artery. Using Seldinger technique, the | | micropuncture access set was exchanged for a [employer] wire. Under fluoroscopic guidance, | | a 5 Fr flush catheter was used to evaluate the distal abdominal aorta and pelvic | | vasculature. A wire and catheter were then used to select the left common and internal | | iliac arteries from the right MAC DEVELOPER approach. DSA was performed from the left internal | | iliac artery in multiple magnified oblique projections. The same catheter and wire were | | then used to select the right internal iliac artery and repeat DSA was performed. The | | catheters and wires were then removed and manual compression was applied to the puncture | | site until hemostasis was achieved. Findings:The distal abdominal aortogram | | demonstrates a relatively normal course and caliber of the pelvic vasculature. | | Selective DSA of the left internal iliac artery from the right common femoral access SMA | | evaluation demonstrates somewhat attenuated vasculature adjacent to the pelvic ring | | fractures. There are two areas of focal "delayed" contrast identified adjacent to the | | fracture that likely represent marrow perfusional changes, with no clear evidence of | | contrast extravasation. Similarly, the right internal iliac artery demonstrates a | | normal course and caliber. No areas of extravasation were identified. Contrast was | | seen flowing into the bladder from the adjacent ureter. Impression:1. The patient has | | classic hepatic arterial anatomy. 2. The portal vein is patent. 3. Uneventful | | selective pelvic arteriogram with no evidence of extravasation. Post trauma changes in | | the vascularity are identified. PLAN:Admit for overnight observation, pain, and nausea | | control. Continue bleeding surveillance as planned. I have personally reviewed the | | images and, if necessary, edited the report. I agree with the report as now presented. | |The patient was prepped and draped in the usual manner. After trauma surgery had completed the abdominal/pelvic surgery and packed/closed the abdomen, the VS surgery and IR fellows we re included in the procedure. A | |21G needle was inserted into the right common femoral artery. Using Seldinger technique, t he micropuncture access set was exchanged for a [employer] wire. Under fluoroscopic guidance, a 5 Fr flush catheter was used | |to evaluate the distal abdominal aorta and pelvic vasculature. A wire and catheter were th en used to select the left common and internal iliac arteries from the right MAC DEVELOPER approach. DSA was performed from the left | |internal iliac artery in multiple magnified oblique projections. The same catheter and wir e were then used to select the right internal iliac artery and repeat DSA was performed. Th e catheters and wires were then removed | |and manual compression was applied to the puncture site until hemostasis was achieved. | | | |Findings: | |The distal abdominal aortogram demonstrates a relatively normal course and caliber of the p elvic vasculature. Selective DSA of the left internal iliac artery from the right common fe moral access SMA evaluation | |demonstrates somewhat attenuated vasculature adjacent to the pelvic ring fractures. There a re two areas of focal "delayed" contrast identified adjacent to the fracture that likely rep resent marrow perfusional changes, | |with no clear evidence of contrast extravasation. Similarly, the right internal iliac j luis ry demonstrates a normal course and caliber. No areas of extravasation were identified. Co ntrast was seen flowing into the bladder from the adjacent ureter. | | | |Impression: | |1. The patient has classic hepatic arterial anatomy. | |2. The portal vein is patent. | |3. Uneventful selective pelvic arteriogram with no evidence of extravasation. Post trauma changes in the vascularity are identified. | | | |PLAN: | |Admit for overnight observation, pain, and nausea control. Continue bleeding surveillance as planned. | | | | | |I have personally reviewed the images and, if necessary, edited the report. I agree with t he report as now presented. | + + + +---------+ + + | Performing | Address | City/State/Zipcode | Phone Number | | Organization | | | | + +---------+ + + | [facility] | | | | | VOICE RECOGNITION | | | | + +---------+ + + ABG-FULL ABL POC (09/01/2017 1:36 PM PDT) + + + + + + | Component | Value | Ref Range | Performed | Pathologist | | | | | At | Signature | + + + + + + | PH | 7.41 | 7.37 - 7.44 | [facility] - | | | ARTERIAL, | | | [facility] | | | POC | | | [facility] | | | | | | OF CARE | | | | | | TESTS | | + + + + + + | PO2 | 96 | 72 - 104 mmHg | [facility] - | | | ARTERIAL, | | | [facility] | | | POC | | | [facility] | | | | | | OF CARE | | | | | | TESTS | | + + + + + + | PCO2 | 43 | 32 - 43 mmHg | [facility] - | | | ARTERIAL, | | | [facility] | | | POC | | | [facility] | | | | | | OF CARE | | | | | | TESTS | | + + + + + + | TOTAL | 10.0 (L) | 13.5 - 17.5 | [facility] - | | | HEMOGLOBIN, | | g/dL | [facility] | | | POC | | | [place] | | | | | | OF CARE | | | | | | TESTS | | + + + + + + | O2 SAT | 97.8 | 92.0 - 98.0 % | [facility] - | | | ARTERIAL, | | | [facility] | | | POC | | | [facility] | | | | | | OF CARE | | | | | | TESTS | | + + + + + + | OXYHEMOGLOB | 95.6 | 94.0 - 100 % | [facility] - | | | IN, POC | | | [facility] | | | | | | [place] | | | | | | OF CARE | | | | | | TESTS | | + + + + + + | HEMATOCRIT, | 30.7 (L) | 41.0 - 53.0 % | [facility] - | | | POC | | | [facility] | | | | | | [place] | | | | | | OF CARE | | | | | | TESTS | | + + + + + + | POTASSIUM, | 3.8 | 3.4 - 5.0 | [facility] - | | | POC | | mmol/L | [facility] | | | | | | [place] | | | | | | OF CARE | | | | | | TESTS | | + + + + + + | SODIUM, POC | 141 | 134 - 143 | [facility] - | | | | | mmol/L | [facility] | | | | | | [place] | | | | | | OF CARE | | | | | | TESTS | | + + + + + + | MAHOGANY | 1.17 | 1.14 - 1.32 | [facility] - | | | IONIZED CA, | | mmol/L | [facility] | | | POC | | | [facility] | | | | | | OF CARE | | | | | | TESTS | | + + + + + + | CHLORIDE, | 108 | 97 - 108 mmol/L | [facility] - | | | POC | | | [facility] | | | | | | [facility] | | | | | | OF CARE | | | | | | TESTS | | + + + + + + | GLUCOSE, | 126 (H) | 70 - 99 mg/dL | [facility] - | | | POC | | | [facility] | | | | | | [facility] | | | | | | OF CARE | | | | | | TESTS | | + + + + + + | HCO3 | 27.3 | 21 - 28 mmol/L | [facility] - | | | ARTERIAL, | | | [facility] | | | POC | | | [facility] | | | | | | OF CARE | | | | | | TESTS | | + + + + + + | BASE EXCESS | 2.7 | | [facility] - | | | ARTERIAL, | | | [facility] | | | POC | | | [facility] | | | | | | OF CARE | | | | | | TESTS | | + + + + + + | LACTATE | 2.5 (H) | 0.5 - 1.6 | [facility] - | | | ARTERIAL, | | mmol/L | [facility] | | | POC | | | [place] | | | | | | OF CARE | | | | | | TESTS | | + + + + + + | METHEMOGLOB | 1.0 | 0.0 - 1.9 % | [facility] - | | | IN, POC | | | [facility] | | | | | | [facility] | | | | | | OF CARE | | | | | | TESTS | | + + + + + + | PAT TEMP | 37.0 | | [facility] - | | | ART, POC | | | [facility] | | | | | | [facility] | | | | | | OF CARE | | | | | | TESTS | | + + + + + + + + | Specimen | + + | Blood - Blood | | (substance) | + + + + + + + | Performing | Address | City/State/Zipcode | Phone Number | | Organization | | | | + + + + + | [facility] | [address] | [place], [place] | | | [facility] | [facility] | [phone] | | | TESTS | | | | + + + + + EXPLORATORY LAPAROTOMY (09/01/2017 12:31 PM PDT) + + + | Narrative | Performed At | + + + | Fidelina Shields MD 09/01/2017 12:42 PM BRIEF OPERATIVE NOTE: | | | Date: 09/01/2017 Author: Fidelina Shields MD | | | Attending Physician: Fidelina Shields MD Jira Administrator(s): Haim Peralta | | | , Vicente Butts MD, [facility] Prior to the | | | beginning of the procedure the team paused to verify the patient's | | | identity, as well as the procedure to be performed and the correct | | | side/site. All equipment required was ready and available. The | | | patient was positioned appropriately. 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 All hemostatic, no e/o bowel injury. | | | Mesenteric bruising throughout the jejunum. Avulsion of the | | | capsule of the inferior pole of the spleen - packed with surgicel | | | and three laparotomy pads Estimated Blood Loss: 200ml | | | Fluids: 1800ml crystalloid, EBL 500ml, urine 150ml Specimens: | | | none Complications: none immediate Drains: none Plan: | | | pelvic angiography, temporary abdominal closure, CT cystogram to | | | definitively rule out bladder injury, plan takeback in the am with | | | likely closure. Full operative note will be dictated by | | | Beckie. Counts were correct at the conclusion of the case. | | | Fidelina Shields MD Town Administrator Division of Trauma, | | | Critical Care and Acute Care Surgery Office: [phone] Pager: | | | [phone] | | + + + ABG-FULL ABL, POC (09/01/2017 12:19 PM PDT) + + + + + + | Component | Value | Ref Range | Performed | Pathologist | | | | | At | Signature | + + + + + + | PH | 7.40 | 7.37 - 7.44 | [facility] - | | | ARTERIAL, | | | [facility] | | | POC | | | [facility] | | | | | | OF CARE | | | | | | TESTS | | + + + + + + | PO2 | 215 (H) | 72 - 104 mmHg | [facility] - | | | ARTERIAL, | | | [facility] | | | POC | | | [place] | | | | | | OF CARE | | | | | | TESTS | | + + + + + + | PCO2 | 45 (H) | 32 - 43 mmHg | [facility] - | | | ARTERIAL, | | | [facility] | | | POC | | | [place] | | | | | | OF CARE | | | | | | TESTS | | + + + + + + | TOTAL | 11.2 (L) | 13.5 - 17.5 | [facility] - | | | HEMOGLOBIN, | | g/dL | [facility] | | | POC | | | [place] [facility] | | | | | | OF CARE | | | | | | TESTS | | + + + + + + | O2 SAT | 99.5 (H) | 92.0 - 98.0 % | [facility] - | | | ARTERIAL, | | | [facility] | | | POC | | | [place] | | | | | | OF CARE | | | | | | TESTS | | + + + + + + | OXYHEMOGLOB | 97.8 | 94.0 - 100 % | [facility] - | | | IN, POC | | | [facility] | | | | | | [facility] | | | | | | OF CARE | | | | | | TESTS | | + + + + + + | HEMATOCRIT, | 34.3 (L) | 41.0 - 53.0 % | [facility] - | | | POC | | | [facility] | | | | | | [facility] | | | | | | OF CARE | | | | | | TESTS | | + + + + + + | POTASSIUM, | 3.2 (L) | 3.4 - 5.0 | [facility] - | | | POC | | mmol/L | [facility] | | | | | | [place] [facility] | | | | | | OF CARE | | | | | | TESTS | | + + + + + + | SODIUM, POC | 143 | 134 - 143 | [facility] - | | | | | mmol/L | [facility] | | | | | | [place] [facility] | | | | | | OF CARE | | | | | | TESTS | | + + + + + + | MAHOGANY | 1.12 (L) | 1.14 - 1.32 | [facility] - | | | IONIZED CA, | | mmol/L | [facility] | | | POC | | | [facility] | | | | | | OF CARE | | | | | | TESTS | | + + + + + + | CHLORIDE, | 108 | 97 - 108 mmol/L | [facility] - | | | POC | | | [facility] | | | | | | [facility] | | | | | | OF CARE | | | | | | TESTS | | + + + + + + | GLUCOSE, | 147 (H) | 70 - 99 mg/dL | [facility] - | | | POC | | | [facility] | | | | | | [facility] | | | | | | OF CARE | | | | | | TESTS | | + + + + + + | HCO3 | 27.8 | 21 - 28 mmol/L | [facility] - | | | ARTERIAL, | | | [facility] | | | POC | | | [facility] | | | | | | OF CARE | | | | | | TESTS | | + + + + + + | BASE EXCESS | 2.9 | | [facility] - | | | ARTERIAL, | | | [facility] | | | POC | | | [facility] | | | | | | OF CARE | | | | | | TESTS | | + + + + + + | LACTATE | 2.1 (H) | 0.5 - 1.6 | [facility] - | | | ARTERIAL, | | mmol/L | [facility] | | | POC | | | [place] [facility] | | | | | | OF CARE | | | | | | TESTS | | + + + + + + | METHEMOGLOB | 0.2 | 0.0 - 1.9 % | [facility] - | | | IN, POC | | | [facility] | | | | | | [facility] | | | | | | OF CARE | | | | | | TESTS | | + + + + + + | PAT TEMP | 37.0 | | [facility] - | | | ART, POC | | | [facility] | | | | | | [place] | | | | | | OF CARE | | | | | | TESTS | | + + + + + + + + | Specimen | + + | Blood - Blood | | (substance) | + + + + + + + | Performing | Address | City/State/Zipcode | Phone Number | | Organization | | | | + + + + + | [facility] | [address] | [place], [place] | | | [facility] | [address] | [address] | | | TESTS | | | | + + + + + CREATININE, BODY FLUID (09/01/2017 11:52 AM PDT) + +-------+ + + + | Component | Value | Ref Range | Performed | Pathologist | | | | | At | Signature | + +-------+ + + + | CREATININE | 0.60 | mg/dL | [facility] | | | BODY FLUID | | | LABORATORY | | | | | | SERVICES, | | | | | | CORE | | + +-------+ + + + + + | Specimen | + + | Fluid - Ectopic | | ureter (disorder) | + + + + + | Narrative | Performed At | + + + | exploratory laparotomy | [facility] | | | LABORATORY | | | SERVICES, CORE | + + + + + + + + | Performing | Address | City/State/Zipcode | Phone Number | | Organization | | | | + + + + + | [facility] | [phone] | [place] [address] | | | SERVICES, CORE | [address] | | | + + + + + ABG-FULL ABL, POC (09/01/2017 11:04 AM PDT) + + + + + + | Component | Value | Ref Range | Performed | Pathologist | | | | | At | Signature | + + + + + + | PH | 7.35 (L) | 7.37 - 7.44 | [facility] - | | | ARTERIAL, | | | [facility] | | | POC | | | [facility] [facility] | | | | | | OF CARE | | | | | | TESTS | | + + + + + + | PO2 | 126 (H) | 72 - 104 mmHg | [facility] - | | | ARTERIAL, | | | [facility] | | | POC | | | [facility] | | | | | | OF CARE | | | | | | TESTS | | + + + + + + | PCO2 | 54 (H) | 32 - 43 mmHg | [facility] - | | | ARTERIAL, | | | [facility] | | | POC | | | [facility] | | | | | | OF CARE | | | | | | TESTS | | + + + + + + | TOTAL | 11.8 (L) | 13.5 - 17.5 | [facility] - | | | HEMOGLOBIN, | | g/dL | [facility] | | | POC | | | [facility] | | | | | | OF CARE | | | | | | TESTS | | + + + + + + | O2 SAT | 98.3 (H) | 92.0 - 98.0 % | [facility] - | | | ARTERIAL, | | | [facility] | | | POC | | | [place] | | | | | | OF CARE | | | | | | TESTS | | + + + + + + | OXYHEMOGLOB | 96.3 | 94.0 - 100 % | [facility] - | | | IN, POC | | | [facility] | | | | | | [place] | | | | | | OF CARE | | | | | | TESTS | | + + + + + + | HEMATOCRIT, | 36.2 (L) | 41.0 - 53.0 % | [facility] - | | | POC | | | [facility] | | | | | | [place] | | | | | | OF CARE | | | | | | TESTS | | + + + + + + | POTASSIUM, | 3.5 | 3.4 - 5.0 | [facility] - | | | POC | | mmol/L | [facility] | | | | | | [place] | | | | | | OF CARE | | | | | | TESTS | | + + + + + + | SODIUM, POC | 144 (H) | 134 - 143 | [facility] - | | | | | mmol/L | [facility] | | | | | | [place] | | | | | | OF CARE | | | | | | TESTS | | + + + + + + | MAHOGANY | 1.09 (L) | 1.14 - 1.32 | [facility] - | | | IONIZED CA, | | mmol/L | [facility] | | | POC | | | [place] | | | | | | OF CARE | | | | | | TESTS | | + + + + + + | CHLORIDE, | 106 | 97 - 108 mmol/L | [facility] - | | | POC | | | [facility] | | | | | | [facility] | | | | | | OF CARE | | | | | | TESTS | | + + + + + + | GLUCOSE, | 140 (H) | 70 - 99 mg/dL | [facility] - | | | POC | | | [facility] | | | | | | [facility] | | | | | | OF CARE | | | | | | TESTS | | + + + + + + | HCO3 | 29.5 (H) | 21 - 28 mmol/L | [facility] - | | | ARTERIAL, | | | [facility] | | | POC | | | [place] | | | | | | OF CARE | | | | | | TESTS | | + + + + + + | BASE EXCESS | 3.9 | | [facility] - | | | ARTERIAL, | | | [facility] | | | POC | | | [place] | | | | | | OF CARE | | | | | | TESTS | | + + + + + + | LACTATE | 1.5 | 0.5 - 1.6 | [facility] - | | | ARTERIAL, | | mmol/L | [facility] | | | POC | | | [place] [place] | | | | | | OF CARE | | | | | | TESTS | | + + + + + + | METHEMOGLOB | 1.0 | 0.0 - 1.9 % | [facility] - | | | IN, POC | | | [facility] | | | | | | [place] | | | | | | OF CARE | | | | | | TESTS | | + + + + + + | PAT TEMP | 37.0 | | [facility] - | | | ART, POC | | | [facility] | | | | | | [facility] | | | | | | OF CARE | | | | | | TESTS | | + + + + + + + + | Specimen | + + | Blood - Blood | | (substance) | + + + + + + + | Performing | Address | City/State/Zipcode | Phone Number | | Organization | | | | + + + + + | [facility] | [address] | [place], [place] | | | [facility] | [address] | [address] | | | TESTS | | | | + + + + + PRODUCT - PLATELET PHERESIS LEUKOREDUCED (09/01/2017 9:56 AM PDT) + + + + + + | Component | Value | Ref Range | Performed | Pathologist | | | | | At | Signature | + + + + + + | PRODUCT | PLATELETS PHERESIS | | [facility] | | | DESCRIPTION | LEUKOCYTES REDUCED | | LABORATORY | | | | | | SERVICES, | | | | | | TRANSFUSION | | | | | | MEDICINE | | + + + + + + | PRODUCT | [id number] | | [facility] | | | UNIT # | | | LABORATORY | | | | | | SERVICES, | | | | | | TRANSFUSION | | | | | | MEDICINE | | + + + + + + | UNIT ABO | A | | [facility] | | | | | | LABORATORY | | | | | | SERVICES, | | | | | | TRANSFUSION | | | | | | MEDICINE | | + + + + + + | UNIT RH | POS | | [facility] | | | | | | LABORATORY | | | | | | SERVICES, | | | | | | TRANSFUSION | | | | | | MEDICINE | | + + + + + + | STATUS OF | Returned to Blood Bank | | [facility] | | | UNIT | | | LABORATORY | | | | | | SERVICES, | | | | | | TRANSFUSION | | | | | | MEDICINE | | + + + + + + | EXPIRATION | [id number] | | [facility] | | | DATE | | | LABORATORY | | | | | | SERVICES, | | | | | | TRANSFUSION | | | | | | MEDICINE | | + + + + + + | BLOOD TYPE | [id number] | | [facility] | | | BARCODE | | | LABORATORY | | | | | | SERVICES, | | | | | | TRANSFUSION | | | | | | MEDICINE | | + + + + + + | BLOOD | [id number] | | [facility] | | | PRODUCT | | | LABORATORY | | | CODE | | | SERVICES, | | | | | | TRANSFUSION | | | | | | MEDICINE | | + + + + + + + + | Specimen | + + | | + + + + + + + | Performing | Address | City/State/Zipcode | Phone Number | | Organization | | | | + + + + + | [facility] | [address] | [place] [address] | | | SERVICES, | [address] | | | | TRANSFUSION MEDICINE | | | | + + + + + PRODUCT - FRESH FROZEN PLASMA (09/01/2017 9:53 AM PDT) + + + + + + | Component | Value | Ref Range | Performed | Pathologist | | | | | At | Signature | + + + + + + | PRODUCT | LIQUID PLASMA, | | [facility] | | | DESCRIPTION | IRRADIATED | | LABORATORY | | | | | | SERVICES, | | | | | | TRANSFUSION | | | | | | MEDICINE | | + + + + + + | PRODUCT | [id number] | | [facility] | | | UNIT # | | | LABORATORY | | | | | | SERVICES, | | | | | | TRANSFUSION | | | | | | MEDICINE | | + + + + + + | UNIT ABO | A | | [facility] | | | | | | LABORATORY | | | | | | SERVICES, | | | | | | TRANSFUSION | | | | | | MEDICINE | | + + + + + + | UNIT RH | POS | | [facility] | | | | | | LABORATORY | | | | | | SERVICES, | | | | | | TRANSFUSION | | | | | | MEDICINE | | + + + + + + | STATUS OF | Returned to Blood Bank | | [facility] | | | UNIT | | | LABORATORY | | | | | | SERVICES, | | | | | | TRANSFUSION | | | | | | MEDICINE | | + + + + + + | EXPIRATION | [phone] | | [facility] | | | DATE | | | LABORATORY | | | | | | SERVICES, | | | | | | TRANSFUSION | | | | | | MEDICINE | | + + + + + + | BLOOD TYPE | 6200 | | [facility] | | | BARCODE | | | LABORATORY | | | | | | SERVICES, | | | | | | TRANSFUSION | | | | | | MEDICINE | | + + + + + + | BLOOD | [id number] | | [facility] | | | PRODUCT | | | LABORATORY | | | CODE | | | SERVICES, | | | | | | TRANSFUSION | | | | | | MEDICINE | | + + + + + + + + | Specimen | + + | | + + + + + + + | Performing | Address | City/State/Zipcode | Phone Number | | Organization | | | | + + + + + | [facility] | [address] | [place] [address] | | | SERVICES, | [address] | | | | TRANSFUSION MEDICINE | | | | + + + + + PRODUCT - FRESH FROZEN PLASMA (09/01/2017 9:53 AM PDT) + + + + + + | Component | Value | Ref Range | Performed | Pathologist | | | | | At | Signature | + + + + + + | PRODUCT | LIQUID PLASMA, | | [facility] | | | DESCRIPTION | IRRADIATED | | LABORATORY | | | | | | SERVICES, | | | | | | TRANSFUSION | | | | | | MEDICINE | | + + + + + + | PRODUCT | [id number] | | [facility] | | | UNIT # | | | LABORATORY | | | | | | SERVICES, | | | | | | TRANSFUSION | | | | | | MEDICINE | | + + + + + + | UNIT ABO | A | | [facility] | | | | | | LABORATORY | | | | | | SERVICES, | | | | | | TRANSFUSION | | | | | | MEDICINE | | + + + + + + | UNIT RH | POS | | [facility] | | | | | | LABORATORY | | | | | | SERVICES, | | | | | | TRANSFUSION | | | | | | MEDICINE | | + + + + + + | STATUS OF | Returned to Blood Bank | | [facility] | | | UNIT | | | LABORATORY | | | | | | SERVICES, | | | | | | TRANSFUSION | | | | | | MEDICINE | | + + + + + + | EXPIRATION | [phone] | | [facility] | | | DATE | | | LABORATORY | | | | | | SERVICES, | | | | | | TRANSFUSION | | | | | | MEDICINE | | + + + + + + | BLOOD TYPE | 6200 | | [facility] | | | BARCODE | | | LABORATORY | | | | | | SERVICES, | | | | | | TRANSFUSION | | | | | | MEDICINE | | + + + + + + | BLOOD | [id number] | | [facility] | | | PRODUCT | | | LABORATORY | | | CODE | | | SERVICES, | | | | | | TRANSFUSION | | | | | | MEDICINE | | + + + + + + + + | Specimen | + + | | + + + + + + + | Performing | Address | City/State/Zipcode | Phone Number | | Organization | | | | + + + + + | [facility] | [address] | [place] [address] | | | SERVICES, | [address] | | | | TRANSFUSION MEDICINE | | | | + + + + + PRODUCT - RED CELLS LEUKOREDUCED (09/01/2017 9:49 AM PDT) + + + + + + | Component | Value | Ref Range | Performed | Pathologist | | | | | At | Signature | + + + + + + | PRODUCT | -3 RED BLOOD CELLS | | [facility] | | | DESCRIPTION | ADENINE-SALINE ADDED | | LABORATORY | | | | LEUKOCY | | SERVICES, | | | | | | TRANSFUSION | | | | | | MEDICINE | | + + + + + + | PRODUCT | [id number] | | [facility] | | | UNIT # | | | LABORATORY | | | | | | SERVICES, | | | | | | TRANSFUSION | | | | | | MEDICINE | | + + + + + + | UNIT ABO | O | | [facility] | | | | | | LABORATORY | | | | | | SERVICES, | | | | | | TRANSFUSION | | | | | | MEDICINE | | + + + + + + | UNIT RH | POS | | [facility] | | | | | | LABORATORY | | | | | | SERVICES, | | | | | | TRANSFUSION | | | | | | MEDICINE | | + + + + + + | STATUS OF | Returned to Blood Bank | | [facility] | | | UNIT | | | LABORATORY | | | | | | SERVICES, | | | | | | TRANSFUSION | | | | | | MEDICINE | | + + + + + + | EXPIRATION | [phone] | | [facility] | | | DATE | | | LABORATORY | | | | | | SERVICES, | | | | | | TRANSFUSION | | | | | | MEDICINE | | + + + + + + | BLOOD TYPE | 5100 | | [facility] | | | BARCODE | | | LABORATORY | | | | | | SERVICES, | | | | | | TRANSFUSION | | | | | | MEDICINE | | + + + + + + | BLOOD | [id number] | | [facility] | | | PRODUCT | | | LABORATORY | | | CODE | | | SERVICES, | | | | | | TRANSFUSION | | | | | | MEDICINE | | + + + + + + + + | Specimen | + + | | + + + + + + + | Performing | Address | City/State/Zipcode | Phone Number | | Organization | | | | + + + + + | [facility] | [address] | [place] [address] | | | SERVICES, | [address] | | | | TRANSFUSION MEDICINE | | | | + + + + + PRODUCT - RED CELLS LEUKOREDUCED (09/01/2017 9:49 AM PDT) + + + + + + | Component | Value | Ref Range | Performed | Pathologist | | | | | At | Signature | + + + + + + | PRODUCT | -3 RED BLOOD CELLS | | [facility] | | | DESCRIPTION | ADENINE-SALINE ADDED | | LABORATORY | | | | LEUKOCY | | SERVICES, | | | | | | TRANSFUSION | | | | | | MEDICINE | | + + + + + + | PRODUCT | [id number] | | [facility] | | | UNIT # | | | LABORATORY | | | | | | SERVICES, | | | | | | TRANSFUSION | | | | | | MEDICINE | | + + + + + + | UNIT ABO | O | | [facility] | | | | | | LABORATORY | | | | | | SERVICES, | | | | | | TRANSFUSION | | | | | | MEDICINE | | + + + + + + | UNIT RH | POS | | [facility] | | | | | | LABORATORY | | | | | | SERVICES, | | | | | | TRANSFUSION | | | | | | MEDICINE | | + + + + + + | STATUS OF | Returned to Blood Bank | | [facility] | | | UNIT | | | LABORATORY | | | | | | SERVICES, | | | | | | TRANSFUSION | | | | | | MEDICINE | | + + + + + + | EXPIRATION | [phone] | | [facility] | | | DATE | | | LABORATORY | | | | | | SERVICES, | | | | | | TRANSFUSION | | | | | | MEDICINE | | + + + + + + | BLOOD TYPE | 5100 | | [facility] | | | BARCODE | | | LABORATORY | | | | | | SERVICES, | | | | | | TRANSFUSION | | | | | | MEDICINE | | + + + + + + | BLOOD | [id number] | | [facility] | | | PRODUCT | | | LABORATORY | | | CODE | | | SERVICES, | | | | | | TRANSFUSION | | | | | | MEDICINE | | + + + + + + + + | Specimen | + + | | + + + + + + + | Performing | Address | City/State/Zipcode | Phone Number | | Organization | | | | + + + + + | [facility] | [address] | [place] [address] | | | SERVICES, | [address] | | | | TRANSFUSION MEDICINE | | | | + + + + + PRODUCT - RED CELLS LEUKOREDUCED (09/01/2017 9:49 AM PDT) + + + + + + | Component | Value | Ref Range | Performed | Pathologist | | | | | At | Signature | + + + + + + | PRODUCT | -1 RED BLOOD CELL | | [facility] | | | DESCRIPTION | ADENINE-SALINE ADDED | | LABORATORY | | | | LEUKOCYTE | | SERVICES, | | | | | | TRANSFUSION | | | | | | MEDICINE | | + + + + + + | PRODUCT | [id number] | | [facility] | | | UNIT # | | | LABORATORY | | | | | | SERVICES, | | | | | | TRANSFUSION | | | | | | MEDICINE | | + + + + + + | UNIT ABO | O | | [facility] | | | | | | LABORATORY | | | | | | SERVICES, | | | | | | TRANSFUSION | | | | | | MEDICINE | | + + + + + + | UNIT RH | POS | | [facility] | | | | | | LABORATORY | | | | | | SERVICES, | | | | | | TRANSFUSION | | | | | | MEDICINE | | + + + + + + | STATUS OF | Returned to Blood Bank | | [facility] | | | UNIT | | | LABORATORY | | | | | | SERVICES, | | | | | | TRANSFUSION | | | | | | MEDICINE | | + + + + + + | EXPIRATION | [phone] | | [facility] | | | DATE | | | LABORATORY | | | | | | SERVICES, | | | | | | TRANSFUSION | | | | | | MEDICINE | | + + + + + + | BLOOD TYPE | 5100 | | [facility] | | | BARCODE | | | LABORATORY | | | | | | SERVICES, | | | | | | TRANSFUSION | | | | | | MEDICINE | | + + + + + + | BLOOD | [id number] | | [facility] | | | PRODUCT | | | LABORATORY | | | CODE | | | SERVICES, | | | | | | TRANSFUSION | | | | | | MEDICINE | | + + + + + + + + | Specimen | + + | | + + + + + + + | Performing | Address | City/State/Zipcode | Phone Number | | Organization | | | | + + + + + | [facility] | [address] | [place] [address] | | | SERVICES, | [address] | | | | TRANSFUSION MEDICINE | | | | + + + + + PRODUCT - RED CELLS LEUKOREDUCED (09/01/2017 9:49 AM PDT) + + + + + + | Component | Value | Ref Range | Performed | Pathologist | | | | | At | Signature | + + + + + + | PRODUCT | -1 RED BLOOD CELL | | [facility] | | | DESCRIPTION | ADENINE-SALINE ADDED | | LABORATORY | | | | LEUKOCYTE | | SERVICES, | | | | | | TRANSFUSION | | | | | | MEDICINE | | + + + + + + | PRODUCT | [id number] | | [facility] | | | UNIT # | | | LABORATORY | | | | | | SERVICES, | | | | | | TRANSFUSION | | | | | | MEDICINE | | + + + + + + | UNIT ABO | O | | [facility] | | | | | | LABORATORY | | | | | | SERVICES, | | | | | | TRANSFUSION | | | | | | MEDICINE | | + + + + + + | UNIT RH | POS | | [facility] | | | | | | LABORATORY | | | | | | SERVICES, | | | | | | TRANSFUSION | | | | | | MEDICINE | | + + + + + + | STATUS OF | Returned to Blood Bank | | [facility] | | | UNIT | | | LABORATORY | | | | | | SERVICES, | | | | | | TRANSFUSION | | | | | | MEDICINE | | + + + + + + | EXPIRATION | [phone] | | [facility] | | | DATE | | | LABORATORY | | | | | | SERVICES, | | | | | | TRANSFUSION | | | | | | MEDICINE | | + + + + + + | BLOOD TYPE | 5100 | | [facility] | | | BARCODE | | | LABORATORY | | | | | | SERVICES, | | | | | | TRANSFUSION | | | | | | MEDICINE | | + + + + + + | BLOOD | [id number] | | [facility] | | | PRODUCT | | | LABORATORY | | | CODE | | | SERVICES, | | | | | | TRANSFUSION | | | | | | MEDICINE | | + + + + + + + + | Specimen | + + | | + + + + + + + | Performing | Address | City/State/Zipcode | Phone Number | | Organization | | | | + + + + + | [facility] | [address] | [place] [address] | | | SERVICES, | [address] | | | | TRANSFUSION MEDICINE | | | | + + + + + PRODUCT - RED CELLS LEUKOREDUCED (09/01/2017 9:49 AM PDT) + + + + + + | Component | Value | Ref Range | Performed | Pathologist | | | | | At | Signature | + + + + + + | PRODUCT | -1 RED BLOOD CELL | | [facility] | | | DESCRIPTION | ADENINE-SALINE ADDED | | LABORATORY | | | | LEUKOCYTE | | SERVICES, | | | | | | TRANSFUSION | | | | | | MEDICINE | | + + + + + + | PRODUCT | [id number] | | [facility] | | | UNIT # | | | LABORATORY | | | | | | SERVICES, | | | | | | TRANSFUSION | | | | | | MEDICINE | | + + + + + + | UNIT ABO | O | | [facility] | | | | | | LABORATORY | | | | | | SERVICES, | | | | | | TRANSFUSION | | | | | | MEDICINE | | + + + + + + | UNIT RH | POS | | [facility] | | | | | | LABORATORY | | | | | | SERVICES, | | | | | | TRANSFUSION | | | | | | MEDICINE | | + + + + + + | STATUS OF | Returned to Blood Bank | | [facility] | | | UNIT | | | LABORATORY | | | | | | SERVICES, | | | | | | TRANSFUSION | | | | | | MEDICINE | | + + + + + + | EXPIRATION | [phone] | | [facility] | | | DATE | | | LABORATORY | | | | | | SERVICES, | | | | | | TRANSFUSION | | | | | | MEDICINE | | + + + + + + | BLOOD TYPE | 5100 | | [facility] | | | BARCODE | | | LABORATORY | | | | | | SERVICES, | | | | | | TRANSFUSION | | | | | | MEDICINE | | + + + + + + | BLOOD | [id number] | | [facility] | | | PRODUCT | | | LABORATORY | | | CODE | | | SERVICES, | | | | | | TRANSFUSION | | | | | | MEDICINE | | + + + + + + + + | Specimen | + + | | + + + + + + + | Performing | Address | City/State/Zipcode | Phone Number | | Organization | | | | + + + + + | [facility] | [address] | [place] [address] | | | SERVICES, | [address] | | | | TRANSFUSION MEDICINE | | | | + + + + + PRODUCT - RED CELLS LEUKOREDUCED (09/01/2017 9:49 AM PDT) + + + + + + | Component | Value | Ref Range | Performed | Pathologist | | | | | At | Signature | + + + + + + | PRODUCT | -1 RED BLOOD CELL | | [facility] | | | DESCRIPTION | ADENINE-SALINE ADDED | | LABORATORY | | | | LEUKOCYTE | | SERVICES, | | | | | | TRANSFUSION | | | | | | MEDICINE | | + + + + + + | PRODUCT | [id number] | | [facility] | | | UNIT # | | | LABORATORY | | | | | | SERVICES, | | | | | | TRANSFUSION | | | | | | MEDICINE | | + + + + + + | UNIT ABO | O | | [facility] | | | | | | LABORATORY | | | | | | SERVICES, | | | | | | TRANSFUSION | | | | | | MEDICINE | | + + + + + + | UNIT RH | POS | | [facility] | | | | | | LABORATORY | | | | | | SERVICES, | | | | | | TRANSFUSION | | | | | | MEDICINE | | + + + + + + | STATUS OF | Returned to Blood Bank | | [facility] | | | UNIT | | | LABORATORY | | | | | | SERVICES, | | | | | | TRANSFUSION | | | | | | MEDICINE | | + + + + + + | EXPIRATION | [phone] | | [facility] | | | DATE | | | LABORATORY | | | | | | SERVICES, | | | | | | TRANSFUSION | | | | | | MEDICINE | | + + + + + + | BLOOD TYPE | 5100 | | [facility] | | | BARCODE | | | LABORATORY | | | | | | SERVICES, | | | | | | TRANSFUSION | | | | | | MEDICINE | | + + + + + + | BLOOD | [id number] | | [facility] | | | PRODUCT | | | LABORATORY | | | CODE | | | SERVICES, | | | | | | TRANSFUSION | | | | | | MEDICINE | | + + + + + + + + | Specimen | + + | | + + + + + + + | Performing | Address | City/State/Zipcode | Phone Number | | Organization | | | | + + + + + | [facility] | [address] | [place] [id number] | | | SERVICES, | [address] | | | | TRANSFUSION MEDICINE | | | | + + + + + PRODUCT - FRESH FROZEN PLASMA (09/01/2017 9:46 AM PDT) + + + + + + | Component | Value | Ref Range | Performed | Pathologist | | | | | At | Signature | + + + + + + | PRODUCT | PLASMA THAWED | | [facility] | | | DESCRIPTION | | | LABORATORY | | | | | | SERVICES, | | | | | | TRANSFUSION | | | | | | MEDICINE | | + + + + + + | PRODUCT | [id number] | | [facility] | | | UNIT # | | | LABORATORY | | | | | | SERVICES, | | | | | | TRANSFUSION | | | | | | MEDICINE | | + + + + + + | UNIT ABO | B | | [facility] | | | | | | LABORATORY | | | | | | SERVICES, | | | | | | TRANSFUSION | | | | | | MEDICINE | | + + + + + + | UNIT RH | POS | | [facility] | | | | | | LABORATORY | | | | | | SERVICES, | | | | | | TRANSFUSION | | | | | | MEDICINE | | + + + + + + | STATUS OF | Returned to Blood Bank | | [facility] | | | UNIT | | | LABORATORY | | | | | | SERVICES, | | | | | | TRANSFUSION | | | | | | MEDICINE | | + + + + + + | EXPIRATION | [phone] | | [facility] | | | DATE | | | LABORATORY | | | | | | SERVICES, | | | | | | TRANSFUSION | | | | | | MEDICINE | | + + + + + + | BLOOD TYPE | 7300 | | [facility] | | | BARCODE | | | LABORATORY | | | | | | SERVICES, | | | | | | TRANSFUSION | | | | | | MEDICINE | | + + + + + + | BLOOD | [id number] | | [facility] | | | PRODUCT | | | LABORATORY | | | CODE | | | SERVICES, | | | | | | TRANSFUSION | | | | | | MEDICINE | | + + + + + + + + | Specimen | + + | | + + + + + + + | Performing | Address | City/State/Zipcode | Phone Number | | Organization | | | | + + + + + | [facility] | [address] | [place] [address] | | | SERVICES, | [address] | | | | TRANSFUSION MEDICINE | | | | + + + + + PRODUCT - FRESH FROZEN PLASMA (09/01/2017 9:46 AM PDT) + + + + + + | Component | Value | Ref Range | Performed | Pathologist | | | | | At | Signature | + + + + + + | PRODUCT | PLASMA THAWED | | [facility] | | | DESCRIPTION | | | LABORATORY | | | | | | SERVICES, | | | | | | TRANSFUSION | | | | | | MEDICINE | | + + + + + + | PRODUCT | [id number] | | [facility] | | | UNIT # | | | LABORATORY | | | | | | SERVICES, | | | | | | TRANSFUSION | | | | | | MEDICINE | | + + + + + + | UNIT ABO | B | | [facility] | | | | | | LABORATORY | | | | | | SERVICES, | | | | | | TRANSFUSION | | | | | | MEDICINE | | + + + + + + | UNIT RH | POS | | [facility] | | | | | | LABORATORY | | | | | | SERVICES, | | | | | | TRANSFUSION | | | | | | MEDICINE | | + + + + + + | STATUS OF | Returned to Blood Bank | | [facility] | | | UNIT | | | LABORATORY | | | | | | SERVICES, | | | | | | TRANSFUSION | | | | | | MEDICINE | | + + + + + + | EXPIRATION | [phone] | | [facility] | | | DATE | | | LABORATORY | | | | | | SERVICES, | | | | | | TRANSFUSION | | | | | | MEDICINE | | + + + + + + | BLOOD TYPE | 7300 | | [facility] | | | BARCODE | | | LABORATORY | | | | | | SERVICES, | | | | | | TRANSFUSION | | | | | | MEDICINE | | + + + + + + | BLOOD | [id number] | | [facility] | | | PRODUCT | | | LABORATORY | | | CODE | | | SERVICES, | | | | | | TRANSFUSION | | | | | | MEDICINE | | + + + + + + + + | Specimen | + + | | + + + + + + + | Performing | Address | City/State/Zipcode | Phone Number | | Organization | | | | + + + + + | [facility] | [address] | [place] [address] | | | SERVICES, | [address] | | | | TRANSFUSION MEDICINE | | | | + + + + + PRODUCT - FRESH FROZEN PLASMA (09/01/2017 9:46 AM PDT) + + + + + + | Component | Value | Ref Range | Performed | Pathologist | | | | | At | Signature | + + + + + + | PRODUCT | LIQUID PLASMA, | | [facility] | | | DESCRIPTION | IRRADIATED | | LABORATORY | | | | | | SERVICES, | | | | | | TRANSFUSION | | | | | | MEDICINE | | + + + + + + | PRODUCT | [id number] | | [facility] | | | UNIT # | | | LABORATORY | | | | | | SERVICES, | | | | | | TRANSFUSION | | | | | | MEDICINE | | + + + + + + | UNIT ABO | A | | [facility] | | | | | | LABORATORY | | | | | | SERVICES, | | | | | | TRANSFUSION | | | | | | MEDICINE | | + + + + + + | UNIT RH | POS | | [facility] | | | | | | LABORATORY | | | | | | SERVICES, | | | | | | TRANSFUSION | | | | | | MEDICINE | | + + + + + + | STATUS OF | Returned to Blood Bank | | [facility] | | | UNIT | | | LABORATORY | | | | | | SERVICES, | | | | | | TRANSFUSION | | | | | | MEDICINE | | + + + + + + | EXPIRATION | [phone] | | [facility] | | | DATE | | | LABORATORY | | | | | | SERVICES, | | | | | | TRANSFUSION | | | | | | MEDICINE | | + + + + + + | BLOOD TYPE | 6200 | | [facility] | | | BARCODE | | | LABORATORY | | | | | | SERVICES, | | | | | | TRANSFUSION | | | | | | MEDICINE | | + + + + + + | BLOOD | [id number] | | [facility] | | | PRODUCT | | | LABORATORY | | | CODE | | | SERVICES, | | | | | | TRANSFUSION | | | | | | MEDICINE | | + + + + + + + + | Specimen | + + | | + + + + + + + | Performing | Address | City/State/Zipcode | Phone Number | | Organization | | | | + + + + + | [facility] | [address] | [place] [address] | | | SERVICES, | [address] | | | | TRANSFUSION MEDICINE | | | | + + + + + PRODUCT - FRESH FROZEN PLASMA (09/01/2017 9:46 AM PDT) + + + + + + | Component | Value | Ref Range | Performed | Pathologist | | | | | At | Signature | + + + + + + | PRODUCT | LIQUID PLASMA, | | [facility] | | | DESCRIPTION | IRRADIATED | | LABORATORY | | | | | | SERVICES, | | | | | | TRANSFUSION | | | | | | MEDICINE | | + + + + + + | PRODUCT | [id number] | | [facility] | | | UNIT # | | | LABORATORY | | | | | | SERVICES, | | | | | | TRANSFUSION | | | | | | MEDICINE | | + + + + + + | UNIT ABO | A | | [facility] | | | | | | LABORATORY | | | | | | SERVICES, | | | | | | TRANSFUSION | | | | | | MEDICINE | | + + + + + + | UNIT RH | POS | | [facility] | | | | | | LABORATORY | | | | | | SERVICES, | | | | | | TRANSFUSION | | | | | | MEDICINE | | + + + + + + | STATUS OF | Returned to Blood Bank | | [facility] | | | UNIT | | | LABORATORY | | | | | | SERVICES, | | | | | | TRANSFUSION | | | | | | MEDICINE | | + + + + + + | EXPIRATION | [phone] | | [facility] | | | DATE | | | LABORATORY | | | | | | SERVICES, | | | | | | TRANSFUSION | | | | | | MEDICINE | | + + + + + + | BLOOD TYPE | 6200 | | [facility] | | | BARCODE | | | LABORATORY | | | | | | SERVICES, | | | | | | TRANSFUSION | | | | | | MEDICINE | | + + + + + + | BLOOD | [id number] | | [facility] | | | PRODUCT | | | LABORATORY | | | CODE | | | SERVICES, | | | | | | TRANSFUSION | | | | | | MEDICINE | | + + + + + + + + | Specimen | + + | | + + + + + + + | Performing | Address | City/State/Zipcode | Phone Number | | Organization | | | | + + + + + | [facility] | [address] | [place] [address] | | | SERVICES, | [address] | | | | TRANSFUSION MEDICINE | | | | + + + + + PRODUCT - FRESH FROZEN PLASMA (09/01/2017 9:46 AM PDT) + + + + + + | Component | Value | Ref Range | Performed | Pathologist | | | | | At | Signature | + + + + + + | PRODUCT | LIQUID PLASMA, | | [facility] | | | DESCRIPTION | IRRADIATED | | LABORATORY | | | | | | SERVICES, | | | | | | TRANSFUSION | | | | | | MEDICINE | | + + + + + + | PRODUCT | [id number] | | [facility] | | | UNIT # | | | LABORATORY | | | | | | SERVICES, | | | | | | TRANSFUSION | | | | | | MEDICINE | | + + + + + + | UNIT ABO | A | | [facility] | | | | | | LABORATORY | | | | | | SERVICES, | | | | | | TRANSFUSION | | | | | | MEDICINE | | + + + + + + | UNIT RH | POS | | [facility] | | | | | | LABORATORY | | | | | | SERVICES, | | | | | | TRANSFUSION | | | | | | MEDICINE | | + + + + + + | STATUS OF | Returned to Blood Bank | | [facility] | | | UNIT | | | LABORATORY | | | | | | SERVICES, | | | | | | TRANSFUSION | | | | | | MEDICINE | | + + + + + + | EXPIRATION | [phone] | | [facility] | | | DATE | | | LABORATORY | | | | | | SERVICES, | | | | | | TRANSFUSION | | | | | | MEDICINE | | + + + + + + | BLOOD TYPE | 6200 | | [facility] | | | BARCODE | | | LABORATORY | | | | | | SERVICES, | | | | | | TRANSFUSION | | | | | | MEDICINE | | + + + + + + | BLOOD | [id number] | | [facility] | | | PRODUCT | | | LABORATORY | | | CODE | | | SERVICES, | | | | | | TRANSFUSION | | | | | | MEDICINE | | + + + + + + + + | Specimen | + + | | + + + + + + + | Performing | Address | City/State/Zipcode | Phone Number | | Organization | | | | + + + + + | [facility] | [address] | [place] [address] | | | SERVICES, | [address] | | | | TRANSFUSION MEDICINE | | | | + + + + + PRODUCT - FRESH FROZEN PLASMA (09/01/2017 9:46 AM PDT) + + + + + + | Component | Value | Ref Range | Performed | Pathologist | | | | | At | Signature | + + + + + + | PRODUCT | LIQUID PLASMA, | | [facility] | | | DESCRIPTION | IRRADIATED | | LABORATORY | | | | | | SERVICES, | | | | | | TRANSFUSION | | | | | | MEDICINE | | + + + + + + | PRODUCT | [id number] | | [facility] | | | UNIT # | | | LABORATORY | | | | | | SERVICES, | | | | | | TRANSFUSION | | | | | | MEDICINE | | + + + + + + | UNIT ABO | A | | [facility] | | | | | | LABORATORY | | | | | | SERVICES, | | | | | | TRANSFUSION | | | | | | MEDICINE | | + + + + + + | UNIT RH | POS | | [facility] | | | | | | LABORATORY | | | | | | SERVICES, | | | | | | TRANSFUSION | | | | | | MEDICINE | | + + + + + + | STATUS OF | Returned to Blood Bank | | [facility] | | | UNIT | | | LABORATORY | | | | | | SERVICES, | | | | | | TRANSFUSION | | | | | | MEDICINE | | + + + + + + | EXPIRATION | [phone] | | [facility] | | | DATE | | | LABORATORY | | | | | | SERVICES, | | | | | | TRANSFUSION | | | | | | MEDICINE | | + + + + + + | BLOOD TYPE | 6200 | | [facility] | | | BARCODE | | | LABORATORY | | | | | | SERVICES, | | | | | | TRANSFUSION | | | | | | MEDICINE | | + + + + + + | BLOOD | [id number] | | [facility] | | | PRODUCT | | | LABORATORY | | | CODE | | | SERVICES, | | | | | | TRANSFUSION | | | | | | MEDICINE | | + + + + + + + + | Specimen | + + | | + + + + + + + | Performing | Address | City/State/Zipcode | Phone Number | | Organization | | | | + + + + + | [facility] | [address] | [place] [address] | | | SERVICES, | [address] | | | | TRANSFUSION MEDICINE | | | | + + + + + PRODUCT - PLATELET PHERESIS LEUKOREDUCED (09/01/2017 9:43 AM PDT) + + + + + + | Component | Value | Ref Range | Performed | Pathologist | | | | | At | Signature | + + + + + + | PRODUCT | PLATELETS PHERESIS | | [facility] | | | DESCRIPTION | LEUKOCYTE REDUCED | | LABORATORY | | | | | | SERVICES, | | | | | | TRANSFUSION | | | | | | MEDICINE | | + + + + + + | PRODUCT | [id number] | | [facility] | | | UNIT # | | | LABORATORY | | | | | | SERVICES, | | | | | | TRANSFUSION | | | | | | MEDICINE | | + + + + + + | UNIT ABO | A | | [facility] | | | | | | LABORATORY | | | | | | SERVICES, | | | | | | TRANSFUSION | | | | | | MEDICINE | | + + + + + + | UNIT RH | POS | | [facility] | | | | | | LABORATORY | | | | | | SERVICES, | | | | | | TRANSFUSION | | | | | | MEDICINE | | + + + + + + | STATUS OF | Presumed Transfused | | [facility] | | | UNIT | | | LABORATORY | | | | | | SERVICES, | | | | | | TRANSFUSION | | | | | | MEDICINE | | + + + + + + | EXPIRATION | [phone] | | [facility] | | | DATE | | | LABORATORY | | | | | | SERVICES, | | | | | | TRANSFUSION | | | | | | MEDICINE | | + + + + + + | BLOOD TYPE | 6200 | | [facility] | | | BARCODE | | | LABORATORY | | | | | | SERVICES, | | | | | | TRANSFUSION | | | | | | MEDICINE | | + + + + + + | BLOOD | [id number] | | [facility] | | | PRODUCT | | | LABORATORY | | | CODE | | | SERVICES, | | | | | | TRANSFUSION | | | | | | MEDICINE | | + + + + + + + + | Specimen | + + | | + + + + + + + | Performing | Address | City/State/Zipcode | Phone Number | | Organization | | | | + + + + + | [facility] | [address] | [place] [address] | | | SERVICES, | [address] | | | | TRANSFUSION MEDICINE | | | | + + + + + PRODUCT - FRESH FROZEN PLASMA (09/01/2017 9:35 AM PDT) + + + + + + | Component | Value | Ref Range | Performed | Pathologist | | | | | At | Signature | + + + + + + | PRODUCT | LIQUID PLASMA, | | [facility] | | | DESCRIPTION | IRRADIATED | | LABORATORY | | | | | | SERVICES, | | | | | | TRANSFUSION | | | | | | MEDICINE | | + + + + + + | PRODUCT | [id number] | | [facility] | | | UNIT # | | | LABORATORY | | | | | | SERVICES, | | | | | | TRANSFUSION | | | | | | MEDICINE | | + + + + + + | UNIT ABO | A | | [facility] | | | | | | LABORATORY | | | | | | SERVICES, | | | | | | TRANSFUSION | | | | | | MEDICINE | | + + + + + + | UNIT RH | NEG | | [facility] | | | | | | LABORATORY | | | | | | SERVICES, | | | | | | TRANSFUSION | | | | | | MEDICINE | | + + + + + + | STATUS OF | Presumed Transfused | | [facility] | | | UNIT | | | LABORATORY | | | | | | SERVICES, | | | | | | TRANSFUSION | | | | | | MEDICINE | | + + + + + + | EXPIRATION | [id number] | | [facility] | | | DATE | | | LABORATORY | | | | | | SERVICES, | | | | | | TRANSFUSION | | | | | | MEDICINE | | + + + + + + | BLOOD TYPE | | | [facility] | | | BARCODE | | | LABORATORY | | | | | | SERVICES, | | | | | | TRANSFUSION | | | | | | MEDICINE | | + + + + + + | BLOOD | [id number] | | [facility] | | | PRODUCT | | | LABORATORY | | | CODE | | | SERVICES, | | | | | | TRANSFUSION | | | | | | MEDICINE | | + + + + + + + + | Specimen | + + | | + + + + + + + | Performing | Address | City/State/Zipcode | Phone Number | | Organization | | | | + + + + + | [facility] | [address] | [place] [address] | | | SERVICES, | [address] | | | | TRANSFUSION MEDICINE | | | | + + + + + PRODUCT - FRESH FROZEN PLASMA (09/01/2017 9:35 AM PDT) + + + + + + | Component | Value | Ref Range | Performed | Pathologist | | | | | At | Signature | + + + + + + | PRODUCT | LIQUID PLASMA, | | [facility] | | | DESCRIPTION | IRRADIATED | | LABORATORY | | | | | | SERVICES, | | | | | | TRANSFUSION | | | | | | MEDICINE | | + + + + + + | PRODUCT | [id number] | | [facility] | | | UNIT # | | | LABORATORY | | | | | | SERVICES, | | | | | | TRANSFUSION | | | | | | MEDICINE | | + + + + + + | UNIT ABO | A | | [facility] | | | | | | LABORATORY | | | | | | SERVICES, | | | | | | TRANSFUSION | | | | | | MEDICINE | | + + + + + + | UNIT RH | NEG | | [facility] | | | | | | LABORATORY | | | | | | SERVICES, | | | | | | TRANSFUSION | | | | | | MEDICINE | | + + + + + + | STATUS OF | Returned to Blood Bank | | [facility] | | | UNIT | | | LABORATORY | | | | | | SERVICES, | | | | | | TRANSFUSION | | | | | | MEDICINE | | + + + + + + | EXPIRATION | [phone] | | [facility] | | | DATE | | | LABORATORY | | | | | | SERVICES, | | | | | | TRANSFUSION | | | | | | MEDICINE | | + + + + + + | BLOOD TYPE | 0600 | | [facility] | | | BARCODE | | | LABORATORY | | | | | | SERVICES, | | | | | | TRANSFUSION | | | | | | MEDICINE | | + + + + + + | BLOOD | [id number] | | [facility] | | | PRODUCT | | | LABORATORY | | | CODE | | | SERVICES, | | | | | | TRANSFUSION | | | | | | MEDICINE | | + + + + + + + + | Specimen | + + | | + + + + + + + | Performing | Address | City/State/Zipcode | Phone Number | | Organization | | | | + + + + + | [facility] | [address] | [place] [address] | | | SERVICES, | [address] | | | | TRANSFUSION MEDICINE | | | | + + + + + PRODUCT - FRESH FROZEN PLASMA (09/01/2017 9:35 AM PDT) + + + + + + | Component | Value | Ref Range | Performed | Pathologist | | | | | At | Signature | + + + + + + | PRODUCT | LIQUID PLASMA, | | [facility] | | | DESCRIPTION | IRRADIATED | | LABORATORY | | | | | | SERVICES, | | | | | | TRANSFUSION | | | | | | MEDICINE | | + + + + + + | PRODUCT | [id number] | | [facility] | | | UNIT # | | | LABORATORY | | | | | | SERVICES, | | | | | | TRANSFUSION | | | | | | MEDICINE | | + + + + + + | UNIT ABO | A | | [facility] | | | | | | LABORATORY | | | | | | SERVICES, | | | | | | TRANSFUSION | | | | | | MEDICINE | | + + + + + + | UNIT RH | POS | | [facility] | | | | | | LABORATORY | | | | | | SERVICES, | | | | | | TRANSFUSION | | | | | | MEDICINE | | + + + + + + | STATUS OF | Returned to Blood Bank | | [facility] | | | UNIT | | | LABORATORY | | | | | | SERVICES, | | | | | | TRANSFUSION | | | | | | MEDICINE | | + + + + + + | EXPIRATION | [id number] | | [facility] | | | DATE | | | LABORATORY | | | | | | SERVICES, | | | | | | TRANSFUSION | | | | | | MEDICINE | | + + + + + + | BLOOD TYPE | 6200 | | [facility] | | | BARCODE | | | LABORATORY | | | | | | SERVICES, | | | | | | TRANSFUSION | | | | | | MEDICINE | | + + + + + + | BLOOD | [id number] | | [facility] | | | PRODUCT | | | LABORATORY | | | CODE | | | SERVICES, | | | | | | TRANSFUSION | | | | | | MEDICINE | | + + + + + + + + | Specimen | + + | | + + + + + + + | Performing | Address | City/State/Zipcode | Phone Number | | Organization | | | | + + + + + | [facility] | [address] | [place] [address] | | | SERVICES, | [address] | | | | TRANSFUSION MEDICINE | | | | + + + + + PRODUCT - FRESH FROZEN PLASMA (09/01/2017 9:35 AM PDT) + + + + + + | Component | Value | Ref Range | Performed | Pathologist | | | | | At | Signature | + + + + + + | PRODUCT | LIQUID PLASMA, | | [facility] | | | DESCRIPTION | IRRADIATED | | LABORATORY | | | | | | SERVICES, | | | | | | TRANSFUSION | | | | | | MEDICINE | | + + + + + + | PRODUCT | [id number] | | [facility] | | | UNIT # | | | LABORATORY | | | | | | SERVICES, | | | | | | TRANSFUSION | | | | | | MEDICINE | | + + + + + + | UNIT ABO | A | | [facility] | | | | | | LABORATORY | | | | | | SERVICES, | | | | | | TRANSFUSION | | | | | | MEDICINE | | + + + + + + | UNIT RH | POS | | [facility] | | | | | | LABORATORY | | | | | | SERVICES, | | | | | | TRANSFUSION | | | | | | MEDICINE | | + + + + + + | STATUS OF | Presumed Transfused | | [facility] | | | UNIT | | | LABORATORY | | | | | | SERVICES, | | | | | | TRANSFUSION | | | | | | MEDICINE | | + + + + + + | EXPIRATION | [phone] | | [facility] | | | DATE | | | LABORATORY | | | | | | SERVICES, | | | | | | TRANSFUSION | | | | | | MEDICINE | | + + + + + + | BLOOD TYPE | 6200 | | [facility] | | | BARCODE | | | LABORATORY | | | | | | SERVICES, | | | | | | TRANSFUSION | | | | | | MEDICINE | | + + + + + + | BLOOD | [id number] | | [facility] | | | PRODUCT | | | LABORATORY | | | CODE | | | SERVICES, | | | | | | TRANSFUSION | | | | | | MEDICINE | | + + + + + + + + | Specimen | + + | | + + + + + + + | Performing | Address | City/State/Zipcode | Phone Number | | Organization | | | | + + + + + | [facility] | [address] | [place] [address] | | | SERVICES, | [address] | | | | TRANSFUSION MEDICINE | | | | + + + + + PRODUCT - RED CELLS LEUKOREDUCED (09/01/2017 9:35 AM PDT) + + + + + + | Component | Value | Ref Range | Performed | Pathologist | | | | | At | Signature | + + + + + + | PRODUCT | -1 RED BLOOD CELL | | [facility] | | | DESCRIPTION | ADENINE-SALINE ADDED | | LABORATORY | | | | LEUKOCYTE | | SERVICES, | | | | | | TRANSFUSION | | | | | | MEDICINE | | + + + + + + | PRODUCT | [id number] | | [facility] | | | UNIT # | | | LABORATORY | | | | | | SERVICES, | | | | | | TRANSFUSION | | | | | | MEDICINE | | + + + + + + | UNIT ABO | O | | [facility] | | | | | | LABORATORY | | | | | | SERVICES, | | | | | | TRANSFUSION | | | | | | MEDICINE | | + + + + + + | UNIT RH | POS | | [facility] | | | | | | LABORATORY | | | | | | SERVICES, | | | | | | TRANSFUSION | | | | | | MEDICINE | | + + + + + + | STATUS OF | Returned to Blood Bank | | [facility] | | | UNIT | | | LABORATORY | | | | | | SERVICES, | | | | | | TRANSFUSION | | | | | | MEDICINE | | + + + + + + | EXPIRATION | [phone] | | [facility] | | | DATE | | | LABORATORY | | | | | | SERVICES, | | | | | | TRANSFUSION | | | | | | MEDICINE | | + + + + + + | BLOOD TYPE | 5100 | | [facility] | | | BARCODE | | | LABORATORY | | | | | | SERVICES, | | | | | | TRANSFUSION | | | | | | MEDICINE | | + + + + + + | BLOOD | [id number] | | [facility] | | | PRODUCT | | | LABORATORY | | | CODE | | | SERVICES, | | | | | | TRANSFUSION | | | | | | MEDICINE | | + + + + + + + + | Specimen | + + | | + + + + + + + | Performing | Address | City/State/Zipcode | Phone Number | | Organization | | | | + + + + + | [facility] | [address] | [place] [address] | | | SERVICES, | [address] | | | | TRANSFUSION MEDICINE | | | | + + + + + PRODUCT - RED CELLS LEUKOREDUCED (09/01/2017 9:35 AM PDT) + + + + + + | Component | Value | Ref Range | Performed | Pathologist | | | | | At | Signature | + + + + + + | PRODUCT | -1 RED BLOOD CELL | | [facility] | | | DESCRIPTION | ADENINE-SALINE ADDED | | LABORATORY | | | | LEUKOCYTE | | SERVICES, | | | | | | TRANSFUSION | | | | | | MEDICINE | | + + + + + + | PRODUCT | [id number] | | [facility] | | | UNIT # | | | LABORATORY | | | | | | SERVICES, | | | | | | TRANSFUSION | | | | | | MEDICINE | | + + + + + + | UNIT ABO | O | | [facility] | | | | | | LABORATORY | | | | | | SERVICES, | | | | | | TRANSFUSION | | | | | | MEDICINE | | + + + + + + | UNIT RH | POS | | [facility] | | | | | | LABORATORY | | | | | | SERVICES, | | | | | | TRANSFUSION | | | | | | MEDICINE | | + + + + + + | STATUS OF | Returned to Blood Bank | | [facility] | | | UNIT | | | LABORATORY | | | | | | SERVICES, | | | | | | TRANSFUSION | | | | | | MEDICINE | | + + + + + + | EXPIRATION | [phone] | | [facility] | | | DATE | | | LABORATORY | | | | | | SERVICES, | | | | | | TRANSFUSION | | | | | | MEDICINE | | + + + + + + | BLOOD TYPE | 5100 | | [facility] | | | BARCODE | | | LABORATORY | | | | | | SERVICES, | | | | | | TRANSFUSION | | | | | | MEDICINE | | + + + + + + | BLOOD | [id number] | | [facility] | | | PRODUCT | | | LABORATORY | | | CODE | | | SERVICES, | | | | | | TRANSFUSION | | | | | | MEDICINE | | + + + + + + + + | Specimen | + + | | + + + + + + + | Performing | Address | City/State/Zipcode | Phone Number | | Organization | | | | + + + + + | [facility] | [address] | [place] [address] | | | SERVICES, | [address] | | | | TRANSFUSION MEDICINE | | | | + + + + + PRODUCT - RED CELLS LEUKOREDUCED (09/01/2017 9:35 AM PDT) + + + + + + | Component | Value | Ref Range | Performed | Pathologist | | | | | At | Signature | + + + + + + | PRODUCT | -1 RED BLOOD CELL | | [facility] | | | DESCRIPTION | ADENINE-SALINE ADDED | | LABORATORY | | | | LEUKOCYTE | | SERVICES, | | | | | | TRANSFUSION | | | | | | MEDICINE | | + + + + + + | PRODUCT | [id number] | | [facility] | | | UNIT # | | | LABORATORY | | | | | | SERVICES, | | | | | | TRANSFUSION | | | | | | MEDICINE | | + + + + + + | UNIT ABO | O | | [facility] | | | | | | LABORATORY | | | | | | SERVICES, | | | | | | TRANSFUSION | | | | | | MEDICINE | | + + + + + + | UNIT RH | POS | | [facility] | | | | | | LABORATORY | | | | | | SERVICES, | | | | | | TRANSFUSION | | | | | | MEDICINE | | + + + + + + | STATUS OF | Presumed Transfused | | [facility] | | | UNIT | | | LABORATORY | | | | | | SERVICES, | | | | | | TRANSFUSION | | | | | | MEDICINE | | + + + + + + | EXPIRATION | [id number] | | [facility] | | | DATE | | | LABORATORY | | | | | | SERVICES, | | | | | | TRANSFUSION | | | | | | MEDICINE | | + + + + + + | BLOOD TYPE | 5100 | | [facility] | | | BARCODE | | | LABORATORY | | | | | | SERVICES, | | | | | | TRANSFUSION | | | | | | MEDICINE | | + + + + + + | BLOOD | [id number] | | [facility] | | | PRODUCT | | | LABORATORY | | | CODE | | | SERVICES, | | | | | | TRANSFUSION | | | | | | MEDICINE | | + + + + + + + + | Specimen | + + | | + + + + + + + | Performing | Address | City/State/Zipcode | Phone Number | | Organization | | | | + + + + + | [facility] | [address] | [place] [address] | | | SERVICES, | [address] | | | | TRANSFUSION MEDICINE | | | | + + + + + PRODUCT - RED CELLS LEUKOREDUCED (09/01/2017 9:35 AM PDT) + + + + + + | Component | Value | Ref Range | Performed | Pathologist | | | | | At | Signature | + + + + + + | PRODUCT | -1 RED BLOOD CELL | | [facility] | | | DESCRIPTION | ADENINE-SALINE ADDED | | LABORATORY | | | | LEUKOCYTE | | SERVICES, | | | | | | TRANSFUSION | | | | | | MEDICINE | | + + + + + + | PRODUCT | [id number] | | [facility] | | | UNIT # | | | LABORATORY | | | | | | SERVICES, | | | | | | TRANSFUSION | | | | | | MEDICINE | | + + + + + + | UNIT ABO | O | | [facility] | | | | | | LABORATORY | | | | | | SERVICES, | | | | | | TRANSFUSION | | | | | | MEDICINE | | + + + + + + | UNIT RH | POS | | [facility] | | | | | | LABORATORY | | | | | | SERVICES, | | | | | | TRANSFUSION | | | | | | MEDICINE | | + + + + + + | STATUS OF | Presumed Transfused | | [facility] | | | UNIT | | | LABORATORY | | | | | | SERVICES, | | | | | | TRANSFUSION | | | | | | MEDICINE | | + + + + + + | EXPIRATION | [phone] | | [facility] | | | DATE | | | LABORATORY | | | | | | SERVICES, | | | | | | TRANSFUSION | | | | | | MEDICINE | | + + + + + + | BLOOD TYPE | 5100 | | [facility] | | | BARCODE | | | LABORATORY | | | | | | SERVICES, | | | | | | TRANSFUSION | | | | | | MEDICINE | | + + + + + + | BLOOD | [id number] | | [facility] | | | PRODUCT | | | LABORATORY | | | CODE | | | SERVICES, | | | | | | TRANSFUSION | | | | | | MEDICINE | | + + + + + + + + | Specimen | + + | | + + + + + + + | Performing | Address | City/State/Zipcode | Phone Number | | Organization | | | | + + + + + | [facility] | [address] | [place] [address] | | | SERVICES, | [address] | | | | TRANSFUSION MEDICINE | | | | + + + + + PRODUCT - RED CELLS LEUKOREDUCED (09/01/2017 9:35 AM PDT) + + + + + + | Component | Value | Ref Range | Performed | Pathologist | | | | | At | Signature | + + + + + + | PRODUCT | -1 RED BLOOD CELL | | [facility] | | | DESCRIPTION | ADENINE-SALINE ADDED | | LABORATORY | | | | LEUKOCYTE | | SERVICES, | | | | | | TRANSFUSION | | | | | | MEDICINE | | + + + + + + | PRODUCT | [id number] | | [facility] | | | UNIT # | | | LABORATORY | | | | | | SERVICES, | | | | | | TRANSFUSION | | | | | | MEDICINE | | + + + + + + | UNIT ABO | O | | [facility] | | | | | | LABORATORY | | | | | | SERVICES, | | | | | | TRANSFUSION | | | | | | MEDICINE | | + + + + + + | UNIT RH | POS | | [facility] | | | | | | LABORATORY | | | | | | SERVICES, | | | | | | TRANSFUSION | | | | | | MEDICINE | | + + + + + + | STATUS OF | Returned to Blood Bank | | [facility] | | | UNIT | | | LABORATORY | | | | | | SERVICES, | | | | | | TRANSFUSION | | | | | | MEDICINE | | + + + + + + | EXPIRATION | [phone] | | [facility] | | | DATE | | | LABORATORY | | | | | | SERVICES, | | | | | | TRANSFUSION | | | | | | MEDICINE | | + + + + + + | BLOOD TYPE | 5100 | | [facility] | | | BARCODE | | | LABORATORY | | | | | | SERVICES, | | | | | | TRANSFUSION | | | | | | MEDICINE | | + + + + + + | BLOOD | [id number] | | [facility] | | | PRODUCT | | | LABORATORY | | | CODE | | | SERVICES, | | | | | | TRANSFUSION | | | | | | MEDICINE | | + + + + + + + + | Specimen | + + | | + + + + + + + | Performing | Address | City/State/Zipcode | Phone Number | | Organization | | | | + + + + + | [facility] | [address] | [place] [address] | | | SERVICES, | [address] | | | | TRANSFUSION MEDICINE | | | | + + + + + PRODUCT - RED CELLS LEUKOREDUCED (09/01/2017 9:35 AM PDT) + + + + + + | Component | Value | Ref Range | Performed | Pathologist | | | | | At | Signature | + + + + + + | PRODUCT | -1 RED BLOOD CELL | | [facility] | | | DESCRIPTION | ADENINE-SALINE ADDED | | LABORATORY | | | | LEUKOCYTE | | SERVICES, | | | | | | TRANSFUSION | | | | | | MEDICINE | | + + + + + + | PRODUCT | [id number] | | [facility] | | | UNIT # | | | LABORATORY | | | | | | SERVICES, | | | | | | TRANSFUSION | | | | | | MEDICINE | | + + + + + + | UNIT ABO | O | | [facility] | | | | | | LABORATORY | | | | | | SERVICES, | | | | | | TRANSFUSION | | | | | | MEDICINE | | + + + + + + | UNIT RH | POS | | [facility] | | | | | | LABORATORY | | | | | | SERVICES, | | | | | | TRANSFUSION | | | | | | MEDICINE | | + + + + + + | STATUS OF | Presumed Transfused | | [facility] | | | UNIT | | | LABORATORY | | | | | | SERVICES, | | | | | | TRANSFUSION | | | | | | MEDICINE | | + + + + + + | EXPIRATION | [phone] | | [facility] | | | DATE | | | LABORATORY | | | | | | SERVICES, | | | | | | TRANSFUSION | | | | | | MEDICINE | | + + + + + + | BLOOD TYPE | 5100 | | [facility] | | | BARCODE | | | LABORATORY | | | | | | SERVICES, | | | | | | TRANSFUSION | | | | | | MEDICINE | | + + + + + + | BLOOD | [id number] | | [facility] | | | PRODUCT | | | LABORATORY | | | CODE | | | SERVICES, | | | | | | TRANSFUSION | | | | | | MEDICINE | | + + + + + + + + | Specimen | + + | | + + + + + + + | Performing | Address | City/State/Zipcode | Phone Number | | Organization | | | | + + + + + | [facility] | [address] | [place] [address] | | | SERVICES, | [address] | | | | TRANSFUSION MEDICINE | | | | + + + + + CBC (HEMOGRAM) ONLY (09/01/2017 9:35 AM PDT) + + + + + + | Component | Value | Ref Range | Performed | Pathologist | | | | | At | Signature | + + + + + + | WHITE CELL | 10.77 | 3.50 - 10.80 | [facility] | | | COUNT | | K/cu mm | LABORATORY | | | | | | SERVICES, | | | | | | CORE | | + + + + + + | RED CELL | 3.10 (L) | 4.50 - 6.00 | [facility] | | | COUNT | | M/cu mm | LABORATORY | | | | | | SERVICES, | | | | | | CORE | | + + + + + + | HEMOGLOBIN | 8.8 (L) | 13.5 - 17.5 | [facility] | | | | | g/dL | LABORATORY | | | | | | SERVICES, | | | | | | CORE | | + + + + + + | HEMATOCRIT | 27.1 (L) | 41.0 - 53.0 % | [facility] | | | | | | LABORATORY | | | | | | SERVICES, | | | | | | CORE | | + + + + + + | MCV | 87.4 | 80.0 - 96.0 fL | [facility] | | | | | | LABORATORY | | | | | | SERVICES, | | | | | | CORE | | + + + + + + | MCHC | 32.5 | 33.0 - 35.5 | [facility] | | | | | g/dL | LABORATORY | | | | | | SERVICES, | | | | | | CORE | | + + + + + + | RDW SD | 49.4 (H) | 35.1 - 46.3 fL | [facility] | | | | | | LABORATORY | | | | | | SERVICES, | | | | | | CORE | | + + + + + + | PLATELET | 63 (L) | 150 - 400 K/cu | [facility] | | | COUNT | | mm | LABORATORY | | | | | | SERVICES, | | | | | | CORE | | + + + + + + | MPV | 9.5 (L) | 9.7 - 12.3 fL | [facility] | | | | | | LABORATORY | | | | | | SERVICES, | | | | | | CORE | | + + + + + + | NRBC% | 0.0 | 0.0 - 0.3 % | [facility] | | | | | | LABORATORY | | | | | | SERVICES, | | | | | | CORE | | + + + + + + | NRBC# | 0.00 | 0.00 - 0.02 | [facility] | | | | | K/cu mm | LABORATORY | | | | | | SERVICES, | | | | | | CORE | | + + + + + + + + | Specimen | + + | Blood - Blood | | (substance) | + + + + + + + | Performing | Address | City/State/Zipcode | Phone Number | | Organization | | | | + + + + + | [facility] | [address] | [place] [address] | | | SERVICES, CORE | [address] | | | + + + + + RENAL FUNCTION SET (NA,K,CL,CO2,BUN,CREAT,GLUC,CA,PHOS,ALB ) (09/01/2017 9:35 AM PDT) + + + + + + | Component | Value | Ref Range | Performed | Pathologist | | | | | At | Signature | + + + + + + | GLUCOSE, | 151 (H) | 70 - 99 mg/dL | [facility] | | | PLASMA | | | LABORATORY | | | (LAB) | | | SERVICES, | | | | | | CORE | | + + + + + + | BUN, PLASMA | 9 | 6 - 20 mg/dL | [facility] | | | (LAB) | | | LABORATORY | | | | | | SERVICES, | | | | | | CORE | | + + + + + + | CREATININE | 0.66 (L) | 0.70 - 1.30 | [facility] | | | PLASMA | | mg/dL | LABORATORY | | | (LAB) | | | SERVICES, | | | | | | CORE | | + + + + + + | EGFR | >60 | >60 mL/min | [facility] | | | - | | | LABORATORY | | | SUDANESE | | | SERVICES, | | | | | | CORE | | + + + + + + | EGFR NON | >60 | >60 mL/min | [facility] | | | -KAYE | | | LABORATORY | | | RICAN | | | SERVICES, | | | | | | CORE | | + + + + + + | SODIUM, | 148 (H) | 136 - 145 | [facility] | | | PLASMA | | mmol/L | LABORATORY | | | (LAB) | | | SERVICES, | | | | | | CORE | | + + + + + + | POTASSIUM, | 3.6 | 3.4 - 5.0 | [facility] | | | PLASMA | | mmol/L | LABORATORY | | | (LAB) | | | SERVICES, | | | | | | CORE | | + + + + + + | CHLORIDE, | 113 (H) | 97 - 108 mmol/L | [facility] | | | PLASMA | | | LABORATORY | | | (LAB) | | | SERVICES, | | | | | | CORE | | + + + + + + | TOTAL CO2, | 26 | 21 - 32 mmol/L | [facility] | | | PLASMA | | | LABORATORY | | | (LAB) | | | SERVICES, | | | | | | CORE | | + + + + + + | CALCIUM, | 7.0 (L) | 8.6 - 10.2 | [facility] | | | PLASMA | | mg/dL | LABORATORY | | | (LAB) | | | SERVICES, | | | | | | CORE | | + + + + + + | CALCIUM(ALB | 8.4 (L) | 8.6 - 10.2 | [facility] | | | CORRECTED) | | mg/dL | LABORATORY | | | | | | SERVICES, | | | | | | CORE | | + + + + + + | ALBUMIN, | 2.3 (L) | 3.5 - 4.7 g/dL | [facility] | | | PLASMA | | | LABORATORY | | | (LAB) | | | SERVICES, | | | | | | CORE | | + + + + + + | PHOSPHORUS, | 3.3 | 2.4 - 4.7 mg/dL | [facility] | | | PLASMA | | | LABORATORY | | | (LAB) | | | SERVICES, | | | | | | CORE | | + + + + + + | POTASSIUM | No Hemo | | [facility] | | | CMNT | | | LABORATORY | | | | | | SERVICES, | | | | | | CORE | | + + + + + + | ANION GAP | 9 | 4 - 11 mmol/L | [facility] | | | | | | LABORATORY | | | | | | SERVICES, | | | | | | CORE | | + + + + + + | ANION | 13 (H) | 4 - 11 mmol/L | [facility] | | | GAP(ALB | | | LABORATORY | | | CORRECTED) | | | SERVICES, | | | | | | CORE | | + + + + + + + + | Specimen | + + | Blood - Blood | | (substance) | + + + + + | Narrative | Performed At | + + + | GFR is estimated using the MDRD equation recommended by the | [facility] | | National Kidney Disease Education Program. Estimated GFR | LABORATORY | | Interpretive Information: <60 mL/min/1.73 sq m | SERVICES, CORE | | Chronic Kidney Disease <15 mL/min/1.73 sq m | | | Kidney Failure Estimated GFR greater that 60 mL/min/1.73 sq m is of | | | limited clinical value. The MDRD equation is not valid in the | | | following situations: - Patients under 18 years of age - Severe | | | malnutrition or obesity - Vegetarian diet - Rapidly changing kidney | | | function - Amputees, paraplegics, or other muscle-wasting diseses | | + + + + + + + + | Performing | Address | City/State/Zipcode | Phone Number | | Organization | | | | + + + + + | [facility] | [address] | [place] [address] | | | SERVICES, CORE | [address] | | | + + + + + LACTATE (09/01/2017 9:35 AM PDT) + +-------+ + + + | Component | Value | Ref Range | Performed | Pathologist | | | | | At | Signature | + +-------+ + + + | LACTATE | 2.5 | mmol/L | [facility] | | | | | | LABORATORY | | | | | | SERVICES, | | | | | | CORE | | + +-------+ + + + + + | Specimen | + + | Blood - Blood | | (substance) | + + + + + | Narrative | Performed At | + + + | Reference Range: Venous blood: 0.5 - 2.2 mmol/L Critical | [facility] | | >= 4.0 mmol/L Arterial blood: 0.5 - 1.6 mmol/L Critical >= 4.0 | LABORATORY | | mmol/L | SERVICES, CORE | + + + + + + + + | Performing | Address | City/State/Zipcode | Phone Number | | Organization | | | | + + + + + | [facility] | [address] | [place] [address] | | | SERVICES, CORE | [address] | | | + + + + + BG-HB,POC RT (09/01/2017 9:19 AM PDT) + + + + + + | Component | Value | Ref Range | Performed | Pathologist | | | | | At | Signature | + + + + + + | HCO3 | 27.1 | 21 - 28 mmol/L | [facility] - | | | ARTERIAL, | | | [place] | | | POC | | | [facility] | | | | | | OF CARE | | | | | | TESTS | | + + + + + + | PCO2 | 46 (H) | 32 - 43 mmHg | [facility] - | | | ARTERIAL, | | | [place] | | | POC | | | [facility] | | | | | | OF CARE | | | | | | TESTS | | + + + + + + | PH | 7.38 | 7.37 - 7.44 | [facility] - | | | ARTERIAL, | | | [place] | | | POC | | | [facility] | | | | | | OF CARE | | | | | | TESTS | | + + + + + + | O2 SAT | 95.3 | 92.0 - 98.0 % | [facility] - | | | ARTERIAL, | | | [place] | | | POC | | | [place] | | | | | | OF CARE | | | | | | TESTS | | + + + + + + | PO2 | 77 | 72 - 104 mmHg | [facility] - | | | ARTERIAL, | | | [place] | | | POC | | | [place] | | | | | | OF CARE | | | | | | TESTS | | + + + + + + | BASE EXCESS | 2.1 | | [facility] - | | | ART, POC | | | [place] | | | | | | [place] | | | | | | OF CARE | | | | | | TESTS | | + + + + + + | PAO2/FIO2 | 154.0 (L) | >300 mmHg | [facility] - | | | RATIO, POC | | | [place] | | | | | | [place] | | | | | | OF CARE | | | | | | TESTS | | + + + + + + | HEMOGLOBIN, | 6.6 (L) | 13.5 - 17.5 | [facility] - | | | POC | | g/dL | [facility] | | | | | | [facility] | | | | | | OF CARE | | | | | | TESTS | | + + + + + + | FIO2 ART, | 50.0 | | [facility] - | | | POC | | | [place] | | | | | | [facility] | | | | | | OF CARE | | | | | | TESTS | | + + + + + + | PAT TEMP | 36.5 | | [facility] | | | [facility], P[facility] | | | [facility] | | | | | | [facility] | | | | | | OF CARE | | | | | | TESTS | | + + + + + + + + | Specimen | + + | Blood - Blood | | (substance) | + + + + + + + | Performing | Address | City/State/Zipcode | Phone Number | | Organization | | | | + + + + + | [facility] | [address] | [place], [place] | | | [facility] | [address] | [address] | | | TESTS | | | | + + + + + X-RAY PORTABLE CHEST 1 VIEW (09/01/2017 9:18 AM PDT) + + | Specimen | + + | | + + + + + | Narrative | Performed At | + + + | EXAM: CO CHEST 1 VIEW HISTORY: Intubated COMPARISON: 08/31/17 | [facility] | | FINDINGS: Support equipment is unchanged. The mediastinum is | RADIOLOGY VOICE | | unremarkable. Perihilar atelectasis has improved prior study. There is | RECOGNITION | | no definite effusion. There is no appreciable pneumothorax. There are | | | multiple acute rib fractures, as before. There remains a chronic left | | | humeral deformity. IMPRESSION: Improved, mild perihilar | | | atelectasis. I have personally reviewed the images and, if | | | necessary, edited the report. I agree with the report as now | | | presented. | | + + + + + | Procedure Note | + + | Service Account, Radiant Res In Interface - 09/02/2017 1:23 PM PDT EXAM: CO CHEST 1 | | VIEW HISTORY: IntubatedCOMPARISON: 08/31/18FINDINGS: Support equipment is unchanged. The | | mediastinum is unremarkable. Perihilar atelectasis has improved prior study. There is no | | definite effusion. There is no appreciable pneumothorax. There are multiple acute rib | | fractures, as before. There remains a chronic left humeral deformity.IMPRESSION: | | Improved, mild perihilar atelectasis.I have personally reviewed the images and, if | | necessary, edited the report. I agree with the report as now presented. | | | |Support equipment is unchanged. The mediastinum is unremarkable. Perihilar atelectasis has improved prior study. There is no definite effusion. There is no appreciable pneumothorax. T here are multiple acute rib fractures, as | |before. There remains a chronic left humeral deformity. | | | |IMPRESSION: | | | |Improved, mild perihilar atelectasis. | | | | | |I have personally reviewed the images and, if necessary, edited the report. I agree with t he report as now presented. | + + + +---------+ + + | Performing | Address | City/State/Zipcode | Phone Number | | Organization | | | | + +---------+ + + | [facility] | | | | | VOICE RECOGNITION | | | | + +---------+ + + X-RAY FEMUR 2 VIEWS LEFT (09/01/2017 9:18 AM PDT) + + | Specimen | + + | | + + + + + | Narrative | Performed At | + + + | EXAM: FEMUR 2 VIEWS LEFT; PELVIS 1 VIEW 09/01/17 HISTORY: | [facility] | | Trauma COMPARISON: CT CAP of the same date FINDINGS: | RADIOLOGY VOICE | | Radiographs of the left femur and pelvis are provided. Minimal | RECOGNITION | | irregularity associated with the superior and inferior pubic rami | | | fractures is observed; the sacral ala and iliac fractures are poorly | | | delineated radiographically. Small contrast is seen in the | | | decompressed urinary bladder. The hip joint spaces appear maintained. | | | Mild degenerative changes of the lumbar spine are incompletely | | | evaluated. Apparent enthesophyte at the left anterior superior iliac | | | spine is noted. A healed femoral diaphyseal fracture is transfixed by | | | intramedullary sushma with 2 proximal and 2 distal interlocking screws; | | | hardware appears intact. There is no acute fracture or malalignment | | | involving the hip or femur. The knee joint spaces appear grossly | | | maintained, with normal alignment. Mild osteoarthrosis is present. No | | | large knee joint effusion. IMPRESSION: Acute nondisplaced | | | fractures involving the pelvis are better visualized on the CT | | | acquired on the same date. Healed left femoral diaphyseal fracture | | | with intact hardware. I have personally reviewed the images | | | and, if necessary, edited the report. I agree with the report as now | | | presented. | | + + + + + | Procedure Note | + + | Service Account, Radiant Res In Interface - 09/01/2017 1:40 PM PDT EXAM: FEMUR 2 | | VIEWS LEFT; PELVIS 1 VIEW 09/01/17 HISTORY: TraumaCOMPARISON: CT CAP of the same | | dateFINDINGS: Radiographs of the left femur and pelvis are provided.Minimal irregularity | | associated with the superior and inferior pubic rami fractures is observed; the sacral | | ala and iliac fractures are poorly delineated radiographically. Small contrast is seen | | in the decompressed urinary bladder. The hip joint spaces appear maintained. Mild | | degenerative changes of the lumbar spine are incompletely evaluated. Apparent | | enthesophyte at the left anterior superior iliac spine is noted.A healed femoral | | diaphyseal fracture is transfixed by intramedullary sushma with 2 proximal and 2 distal | | interlocking screws; hardware appears intact. There is no acute fracture or malalignment | | involving the hip or femur. The knee joint spaces appear grossly maintained, with | | normal alignment. Mild osteoarthrosis is present. No large knee joint | | effusion.IMPRESSION: Acute nondisplaced fractures involving the pelvis are better | | visualized on the CT acquired on the same date.Healed left femoral diaphyseal fracture | | with intact hardware.I have personally reviewed the images and, if necessary, edited the | | report. I agree with the report as now presented. | | | |Healed left femoral diaphyseal fracture with intact hardware. | | | | | |I have personally reviewed the images and, if necessary, edited the report. I agree with t he report as now presented. | + + + +---------+ + + | Performing | Address | City/State/Zipcode | Phone Number | | Organization | | | | + +---------+ + + | [facility] | | | | | VOICE RECOGNITION | | | | + +---------+ + + PRODUCT - RED CELLS LEUKOREDUCED (09/01/2017 9:08 AM PDT) + + + + + + | Component | Value | Ref Range | Performed | Pathologist | | | | | At | Signature | + + + + + + | PRODUCT | -1 RED BLOOD CELL | | [facility] | | | DESCRIPTION | ADENINE-SALINE ADDED | | LABORATORY | | | | LEUKOCYTE | | SERVICES, | | | | | | TRANSFUSION | | | | | | MEDICINE | | + + + + + + | PRODUCT | [id number] | | [facility] | | | UNIT # | | | LABORATORY | | | | | | SERVICES, | | | | | | TRANSFUSION | | | | | | MEDICINE | | + + + + + + | UNIT ABO | O | | [facility] | | | | | | LABORATORY | | | | | | SERVICES, | | | | | | TRANSFUSION | | | | | | MEDICINE | | + + + + + + | UNIT RH | POS | | [facility] | | | | | | LABORATORY | | | | | | SERVICES, | | | | | | TRANSFUSION | | | | | | MEDICINE | | + + + + + + | STATUS OF | Presumed Transfused | | [facility] | | | UNIT | | | LABORATORY | | | | | | SERVICES, | | | | | | TRANSFUSION | | | | | | MEDICINE | | + + + + + + | EXPIRATION | [id number] | | [facility] | | | DATE | | | LABORATORY | | | | | | SERVICES, | | | | | | TRANSFUSION | | | | | | MEDICINE | | + + + + + + | BLOOD TYPE | 5100 | | [facility] | | | BARCODE | | | LABORATORY | | | | | | SERVICES, | | | | | | TRANSFUSION | | | | | | MEDICINE | | + + + + + + | BLOOD | [id number] | | [facility] | | | PRODUCT | | | LABORATORY | | | CODE | | | SERVICES, | | | | | | TRANSFUSION | | | | | | MEDICINE | | + + + + + + + + | Specimen | + + | | + + + + + + + | Performing | Address | City/State/Zipcode | Phone Number | | Organization | | | | + + + + + | [facility] | [address] | [place] [address] | | | SERVICES, | [address] | | | | TRANSFUSION MEDICINE | | | | + + + + + PRODUCT - RED CELLS LEUKOREDUCED (09/01/2017 9:08 AM PDT) + + + + + + | Component | Value | Ref Range | Performed | Pathologist | | | | | At | Signature | + + + + + + | PRODUCT | -1 RED BLOOD CELL | | [facility] | | | DESCRIPTION | ADENINE-SALINE ADDED | | LABORATORY | | | | LEUKOCYTE | | SERVICES, | | | | | | TRANSFUSION | | | | | | MEDICINE | | + + + + + + | PRODUCT | [id number] | | [facility] | | | UNIT # | | | LABORATORY | | | | | | SERVICES, | | | | | | TRANSFUSION | | | | | | MEDICINE | | + + + + + + | UNIT ABO | O | | [facility] | | | | | | LABORATORY | | | | | | SERVICES, | | | | | | TRANSFUSION | | | | | | MEDICINE | | + + + + + + | UNIT RH | POS | | [facility] | | | | | | LABORATORY | | | | | | SERVICES, | | | | | | TRANSFUSION | | | | | | MEDICINE | | + + + + + + | STATUS OF | Presumed Transfused | | [facility] | | | UNIT | | | LABORATORY | | | | | | SERVICES, | | | | | | TRANSFUSION | | | | | | MEDICINE | | + + + + + + | EXPIRATION | [id number] | | [facility] | | | DATE | | | LABORATORY | | | | | | SERVICES, | | | | | | TRANSFUSION | | | | | | MEDICINE | | + + + + + + | BLOOD TYPE | 5100 | | [facility] | | | BARCODE | | | LABORATORY | | | | | | SERVICES, | | | | | | TRANSFUSION | | | | | | MEDICINE | | + + + + + + | BLOOD | [id number] | | [facility] | | | PRODUCT | | | LABORATORY | | | CODE | | | SERVICES, | | | | | | TRANSFUSION | | | | | | MEDICINE | | + + + + + + + + | Specimen | + + | | + + + + + + + | Performing | Address | City/State/Zipcode | Phone Number | | Organization | | | | + + + + + | [facility] | [address] | [place] [address] | | | SERVICES, | [address] | | | | TRANSFUSION MEDICINE | | | | + + + + + PRODUCT - RED CELLS LEUKOREDUCED (09/01/2017 9:08 AM PDT) + + + + + + | Component | Value | Ref Range | Performed | Pathologist | | | | | At | Signature | + + + + + + | PRODUCT | -1 RED BLOOD CELL | | [facility] | | | DESCRIPTION | ADENINE-SALINE ADDED | | LABORATORY | | | | LEUKOCYTE | | SERVICES, | | | | | | TRANSFUSION | | | | | | MEDICINE | | + + + + + + | PRODUCT | [id number] | | [facility] | | | UNIT # | | | LABORATORY | | | | | | SERVICES, | | | | | | TRANSFUSION | | | | | | MEDICINE | | + + + + + + | UNIT ABO | O | | [facility] | | | | | | LABORATORY | | | | | | SERVICES, | | | | | | TRANSFUSION | | | | | | MEDICINE | | + + + + + + | UNIT RH | POS | | [facility] | | | | | | LABORATORY | | | | | | SERVICES, | | | | | | TRANSFUSION | | | | | | MEDICINE | | + + + + + + | STATUS OF | Presumed Transfused | | [facility] | | | UNIT | | | LABORATORY | | | | | | SERVICES, | | | | | | TRANSFUSION | | | | | | MEDICINE | | + + + + + + | EXPIRATION | [id number] | | [facility] | | | DATE | | | LABORATORY | | | | | | SERVICES, | | | | | | TRANSFUSION | | | | | | MEDICINE | | + + + + + + | BLOOD TYPE | 5100 | | [facility] | | | BARCODE | | | LABORATORY | | | | | | SERVICES, | | | | | | TRANSFUSION | | | | | | MEDICINE | | + + + + + + | BLOOD | [id number] | | [facility] | | | PRODUCT | | | LABORATORY | | | CODE | | | SERVICES, | | | | | | TRANSFUSION | | | | | | MEDICINE | | + + + + + + + + | Specimen | + + | | + + + + + + + | Performing | Address | City/State/Zipcode | Phone Number | | Organization | | | | + + + + + | [facility] | [address] | [place] [address] | | | SERVICES, | [address] | | | | TRANSFUSION MEDICINE | | | | + + + + + PRODUCT - RED CELLS LEUKOREDUCED (09/01/2017 9:08 AM PDT) + + + + + + | Component | Value | Ref Range | Performed | Pathologist | | | | | At | Signature | + + + + + + | PRODUCT | -1 RED BLOOD CELL | | [facility] | | | DESCRIPTION | ADENINE-SALINE ADDED | | LABORATORY | | | | LEUKOCYTE | | SERVICES, | | | | | | TRANSFUSION | | | | | | MEDICINE | | + + + + + + | PRODUCT | [id number] | | [facility] | | | UNIT # | | | LABORATORY | | | | | | SERVICES, | | | | | | TRANSFUSION | | | | | | MEDICINE | | + + + + + + | UNIT ABO | O | | [facility] | | | | | | LABORATORY | | | | | | SERVICES, | | | | | | TRANSFUSION | | | | | | MEDICINE | | + + + + + + | UNIT RH | POS | | [facility] | | | | | | LABORATORY | | | | | | SERVICES, | | | | | | TRANSFUSION | | | | | | MEDICINE | | + + + + + + | STATUS OF | Presumed Transfused | | [facility] | | | UNIT | | | LABORATORY | | | | | | SERVICES, | | | | | | TRANSFUSION | | | | | | MEDICINE | | + + + + + + | EXPIRATION | [id number] | | [facility] | | | DATE | | | LABORATORY | | | | | | SERVICES, | | | | | | TRANSFUSION | | | | | | MEDICINE | | + + + + + + | BLOOD TYPE | 5100 | | [facility] | | | BARCODE | | | LABORATORY | | | | | | SERVICES, | | | | | | TRANSFUSION | | | | | | MEDICINE | | + + + + + + | BLOOD | [id number] | | [facility] | | | PRODUCT | | | LABORATORY | | | CODE | | | SERVICES, | | | | | | TRANSFUSION | | | | | | MEDICINE | | + + + + + + + + | Specimen | + + | | + + + + + + + | Performing | Address | City/State/Zipcode | Phone Number | | Organization | | | | + + + + + | [facility] | [address] | [place] [address] | | | SERVICES, | [address] | | | | TRANSFUSION MEDICINE | | | | + + + + + PRODUCT - FRESH FROZEN PLASMA (09/01/2017 9:08 AM PDT) + + + + + + | Component | Value | Ref Range | Performed | Pathologist | | | | | At | Signature | + + + + + + | PRODUCT | PLASMA THAWED | | [facility] | | | DESCRIPTION | | | LABORATORY | | | | | | SERVICES, | | | | | | TRANSFUSION | | | | | | MEDICINE | | + + + + + + | PRODUCT | [id number] | | [facility] | | | UNIT # | | | LABORATORY | | | | | | SERVICES, | | | | | | TRANSFUSION | | | | | | MEDICINE | | + + + + + + | UNIT ABO | B | | [facility] | | | | | | LABORATORY | | | | | | SERVICES, | | | | | | TRANSFUSION | | | | | | MEDICINE | | + + + + + + | UNIT RH | POS | | [facility] | | | | | | LABORATORY | | | | | | SERVICES, | | | | | | TRANSFUSION | | | | | | MEDICINE | | + + + + + + | STATUS OF | Presumed Transfused | | [facility] | | | UNIT | | | LABORATORY | | | | | | SERVICES, | | | | | | TRANSFUSION | | | | | | MEDICINE | | + + + + + + | EXPIRATION | [id number] | | [facility] | | | DATE | | | LABORATORY | | | | | | SERVICES, | | | | | | TRANSFUSION | | | | | | MEDICINE | | + + + + + + | BLOOD TYPE | 7300 | | [facility] | | | BARCODE | | | LABORATORY | | | | | | SERVICES, | | | | | | TRANSFUSION | | | | | | MEDICINE | | + + + + + + | BLOOD | [id number] | | [facility] | | | PRODUCT | | | LABORATORY | | | CODE | | | SERVICES, | | | | | | TRANSFUSION | | | | | | MEDICINE | | + + + + + + + + | Specimen | + + | | + + + + + + + | Performing | Address | City/State/Zipcode | Phone Number | | Organization | | | | + + + + + | [facility] | [address] | [place] [address] | | | SERVICES, | [address] | | | | TRANSFUSION MEDICINE | | | | + + + + + PRODUCT - FRESH FROZEN PLASMA (09/01/2017 9:08 AM PDT) + + + + + + | Component | Value | Ref Range | Performed | Pathologist | | | | | At | Signature | + + + + + + | PRODUCT | PLASMA THAWED | | [facility] | | | DESCRIPTION | | | LABORATORY | | | | | | SERVICES, | | | | | | TRANSFUSION | | | | | | MEDICINE | | + + + + + + | PRODUCT | [id number] | | [facility] | | | UNIT # | | | LABORATORY | | | | | | SERVICES, | | | | | | TRANSFUSION | | | | | | MEDICINE | | + + + + + + | UNIT ABO | B | | [facility] | | | | | | LABORATORY | | | | | | SERVICES, | | | | | | TRANSFUSION | | | | | | MEDICINE | | + + + + + + | UNIT RH | POS | | [facility] | | | | | | LABORATORY | | | | | | SERVICES, | | | | | | TRANSFUSION | | | | | | MEDICINE | | + + + + + + | STATUS OF | Presumed Transfused | | [facility] | | | UNIT | | | LABORATORY | | | | | | SERVICES, | | | | | | TRANSFUSION | | | | | | MEDICINE | | + + + + + + | EXPIRATION | [phone] | | [facility] | | | DATE | | | LABORATORY | | | | | | SERVICES, | | | | | | TRANSFUSION | | | | | | MEDICINE | | + + + + + + | BLOOD TYPE | 7300 | | [facility] | | | BARCODE | | | LABORATORY | | | | | | SERVICES, | | | | | | TRANSFUSION | | | | | | MEDICINE | | + + + + + + | BLOOD | [id number] | | [facility] | | | PRODUCT | | | LABORATORY | | | CODE | | | SERVICES, | | | | | | TRANSFUSION | | | | | | MEDICINE | | + + + + + + + + | Specimen | + + | | + + + + + + + | Performing | Address | City/State/Zipcode | Phone Number | | Organization | | | | + + + + + | [facility] | [address] | [place] [address] | | | SERVICES, | [address] | | | | TRANSFUSION MEDICINE | | | | + + + + + PRODUCT - FRESH FROZEN PLASMA (09/01/2017 9:08 AM PDT) + + + + + + | Component | Value | Ref Range | Performed | Pathologist | | | | | At | Signature | + + + + + + | PRODUCT | PLASMA THAWED | | [facility] | | | DESCRIPTION | | | LABORATORY | | | | | | SERVICES, | | | | | | TRANSFUSION | | | | | | MEDICINE | | + + + + + + | PRODUCT | [id number] | | [facility] | | | UNIT # | | | LABORATORY | | | | | | SERVICES, | | | | | | TRANSFUSION | | | | | | MEDICINE | | + + + + + + | UNIT ABO | B | | [facility] | | | | | | LABORATORY | | | | | | SERVICES, | | | | | | TRANSFUSION | | | | | | MEDICINE | | + + + + + + | UNIT RH | POS | | [facility] | | | | | | LABORATORY | | | | | | SERVICES, | | | | | | TRANSFUSION | | | | | | MEDICINE | | + + + + + + | STATUS OF | Presumed Transfused | | [facility] | | | UNIT | | | LABORATORY | | | | | | SERVICES, | | | | | | TRANSFUSION | | | | | | MEDICINE | | + + + + + + | EXPIRATION | [phone] | | [facility] | | | DATE | | | LABORATORY | | | | | | SERVICES, | | | | | | TRANSFUSION | | | | | | MEDICINE | | + + + + + + | BLOOD TYPE | 7300 | | [facility] | | | BARCODE | | | LABORATORY | | | | | | SERVICES, | | | | | | TRANSFUSION | | | | | | MEDICINE | | + + + + + + | BLOOD | [id number] | | [facility] | | | PRODUCT | | | LABORATORY | | | CODE | | | SERVICES, | | | | | | TRANSFUSION | | | | | | MEDICINE | | + + + + + + + + | Specimen | + + | | + + + + + + + | Performing | Address | City/State/Zipcode | Phone Number | | Organization | | | | + + + + + | [facility] | [address] | [place] [address] | | | SERVICES, | [address] | | | | TRANSFUSION MEDICINE | | | | + + + + + PRODUCT - FRESH FROZEN PLASMA (09/01/2017 9:08 AM PDT) + + + + + + | Component | Value | Ref Range | Performed | Pathologist | | | | | At | Signature | + + + + + + | PRODUCT | THAWED APHERESIS PLASMA | | [facility] | | | DESCRIPTION | | | LABORATORY | | | | | | SERVICES, | | | | | | TRANSFUSION | | | | | | MEDICINE | | + + + + + + | PRODUCT | [id number] | | [facility] | | | UNIT # | | | LABORATORY | | | | | | SERVICES, | | | | | | TRANSFUSION | | | | | | MEDICINE | | + + + + + + | UNIT ABO | B | | [facility] | | | | | | LABORATORY | | | | | | SERVICES, | | | | | | TRANSFUSION | | | | | | MEDICINE | | + + + + + + | UNIT RH | POS | | [facility] | | | | | | LABORATORY | | | | | | SERVICES, | | | | | | TRANSFUSION | | | | | | MEDICINE | | + + + + + + | STATUS OF | Presumed Transfused | | [facility] | | | UNIT | | | LABORATORY | | | | | | SERVICES, | | | | | | TRANSFUSION | | | | | | MEDICINE | | + + + + + + | EXPIRATION | [phone] | | [facility] | | | DATE | | | LABORATORY | | | | | | SERVICES, | | | | | | TRANSFUSION | | | | | | MEDICINE | | + + + + + + | BLOOD TYPE | 7300 | | [facility] | | | BARCODE | | | LABORATORY | | | | | | SERVICES, | | | | | | TRANSFUSION | | | | | | MEDICINE | | + + + + + + | BLOOD | [id number] | | [facility] | | | PRODUCT | | | LABORATORY | | | CODE | | | SERVICES, | | | | | | TRANSFUSION | | | | | | MEDICINE | | + + + + + + + + | Specimen | + + | | + + + + + + + | Performing | Address | City/State/Zipcode | Phone Number | | Organization | | | | + + + + + | [facility] | [address] | [place] [address] | | | SERVICES, | [address] | | | | TRANSFUSION MEDICINE | | | | + + + + + CT HEAD WO CONTRAST (09/01/2017 8:42 AM PDT) + + | Specimen | + + | | + + + + + | Narrative | Performed At | + + + | EXAM: CT head without contrast HISTORY: Follow-up intracranial | [facility] | | hemorrhage. COMPARISON: Multiple prior head CTs, most recently | RADIOLOGY VOICE | | earlier the same day. TECHNIQUE: CT of the head without contrast. | RECOGNITION | | FINDINGS: Brain: Redemonstrated right convexity intracranial | | | and extracranial fluid collections about the right cranioplasty site. | | | The intracranial component is essentially stable measuring up to 11 mm | | | with a similar degree of mass effect upon the right cerebral cortex | | | and stable 4 mm leftward midline shift. The extracranial component has | | | slightly increased in size measuring up to 12 mm in thickness, | | | previously 9 mm. Hyperdense blood products layering within the | | | dependent portions of both fluid collections are again noted. Right | | | temporoparietal encephalomalacia is unchanged. The ventricles are | | | stable in size and morphology. The basal cisterns remain patent. No | | | new territorial loss of hahn-white differentiation. IMPRESSION: | | | 1. Stable intracranial fluid collection deep to the right | | | cranioplasty site with unchanged 4 mm midline shift. 2. Slight | | | interval increase in size of the extracranial fluid collection | | | overlying the right cranioplasty site. I have personally | | | reviewed the images and, if necessary, edited the report. I agree | | | with the report as now presented. | | + + + + + | Procedure Note | + + | Service Account, Radiant Res In Interface - 09/01/2017 9:01 AM PDT EXAM: CT head | | without contrastHISTORY: Follow-up intracranial hemorrhage.COMPARISON: Multiple prior | | head CTs, most recently earlier the same day.TECHNIQUE: CT of the head without | | contrast.FINDINGS:Brain: Redemonstrated right convexity intracranial and extracranial | | fluid collections about the right cranioplasty site. The intracranial component is | | essentially stable measuring up to 11 mm with a similar degree of mass effect upon the | | right cerebral cortex and stable 4 mm leftward midline shift. The extracranial component | | has slightly increased in size measuring up to 12 mm in thickness, previously 9 mm. | | Hyperdense blood products layering within the dependent portions of both fluid | | collections are again noted. Right temporoparietal encephalomalacia is unchanged. The | | ventricles are stable in size and morphology. The basal cisterns remain patent. No new | | territorial loss of hahn-white differentiation.IMPRESSION:1. Stable intracranial fluid | | collection deep to the right cranioplasty site with unchanged 4 mm midline shift.2. | | Slight interval increase in size of the extracranial fluid collection overlying the | | right cranioplasty site.I have personally reviewed the images and, if necessary, edited | | the report. I agree with the report as now presented. | | | |1. Stable intracranial fluid collection deep to the right cranioplasty site with unchanged 4 mm midline shift. | | | |2. Slight interval increase in size of the extracranial fluid collection overlying the righ t cranioplasty site. | | | | | |I have personally reviewed the images and, if necessary, edited the report. I agree with t he report as now presented. | + + + +---------+ + + | Performing | Address | City/State/Zipcode | Phone Number | | Organization | | | | + +---------+ + + | [facility] | | | | | VOICE RECOGNITION | | | | + +---------+ + + PRODUCT - PLATELET PHERESIS LEUKOREDUCED (09/01/2017 5:33 AM PDT) + + + + + + | Component | Value | Ref Range | Performed | Pathologist | | | | | At | Signature | + + + + + + | PRODUCT | APHERESIS | | [facility] | | | DESCRIPTION | PLATELETS,PAS,LEUKOREDUC | | LABORATORY | | | | ED,IRRADIATED | | SERVICES, | | | | | | TRANSFUSION | | | | | | MEDICINE | | + + + + + + | PRODUCT | [id number] | | [facility] | | | UNIT # | | | LABORATORY | | | | | | SERVICES, | | | | | | TRANSFUSION | | | | | | MEDICINE | | + + + + + + | UNIT ABO | O | | [facility] | | | | | | LABORATORY | | | | | | SERVICES, | | | | | | TRANSFUSION | | | | | | MEDICINE | | + + + + + + | UNIT RH | POS | | [facility] | | | | | | LABORATORY | | | | | | SERVICES, | | | | | | TRANSFUSION | | | | | | MEDICINE | | + + + + + + | STATUS OF | Presumed Transfused | | [facility] | | | UNIT | | | LABORATORY | | | | | | SERVICES, | | | | | | TRANSFUSION | | | | | | MEDICINE | | + + + + + + | EXPIRATION | [id number] | | [facility] | | | DATE | | | LABORATORY | | | | | | SERVICES, | | | | | | TRANSFUSION | | | | | | MEDICINE | | + + + + + + | BLOOD TYPE | [id number] | | [facility] | | | BARCODE | | | LABORATORY | | | | | | SERVICES, | | | | | | TRANSFUSION | | | | | | MEDICINE | | + + + + + + | BLOOD | [id number] | | [facility] | | | PRODUCT | | | LABORATORY | | | CODE | | | SERVICES, | | | | | | TRANSFUSION | | | | | | MEDICINE | | + + + + + + + + | Specimen | + + | | + + + + + + + | Performing | Address | City/State/Zipcode | Phone Number | | Organization | | | | + + + + + | [facility] | [phone] | [place] [address] | | | SERVICES, | [address] | | | | TRANSFUSION MEDICINE | | | | + + + + + LACTATE (09/01/2017 5:29 AM PDT) + +-------+ + + + | Component | Value | Ref Range | Performed | Pathologist | | | | | At | Signature | + +-------+ + + + | LACTATE | 1.2 | mmol/L | [facility] | | | | | | LABORATORY | | | | | | SERVICES, | | | | | | CORE | | + +-------+ + + + + + | Specimen | + + | Blood - Blood | | (substance) | + + + + + | Narrative | Performed At | + + + | Reference Range: Venous blood: 0.5 - 2.2 mmol/L Critical | [facility] | | >= 4.0 mmol/L Arterial blood: 0.5 - 1.6 mmol/L Critical >= 4.0 | LABORATORY | | mmol/L | SERVICES, CORE | + + + + + + + + | Performing | Address | City/State/Zipcode | Phone Number | | Organization | | | | + + + + + | [facility] | [address] | [place] [address] | | | SERVICES, CORE | [address] | | | + + + + + HEMATOCRIT (09/01/2017 5:29 AM PDT) + + + + + + | Component | Value | Ref Range | Performed | Pathologist | | | | | At | Signature | + + + + + + | HEMATOCRIT | 23.0 (L) | 41.0 - 53.0 % | [facility] | | | | | | LABORATORY | | | | | | SERVICES, | | | | | | CORE | | + + + + + + + + | Specimen | + + | Blood - Blood | | (substance) | + + + + + + + | Performing | Address | City/State/Zipcode | Phone Number | | Organization | | | | + + + + + | [facility] | [address] | [place] [address] | | | SERVICES, CORE | [address] | | | + + + + + MRI SPINE CERVICAL/THORACIC WO CONTRAST (09/01/2017 3:53 AM PDT) + + | Specimen | + + | | + + + + + | Narrative | Performed At | + + + | EXAM: MRI cervical and thoracic spine without contrast HISTORY: | [facility] | | Trauma, known vertebral fractures. COMPARISON: CT total spine | RADIOLOGY VOICE | | 08/31/17 TECHNIQUE: Multiplanar multi-sequence MRI cervical and | RECOGNITION | | thoracic spine without intravenous contrast FINDINGS: | | | Alignment: Normal Marrow: Acute C6 spinous process fracture and | | | bilateral C7 laminar fractures are better characterized on CT total | | | spine dated 08/31/17. Spinal Cord: There is a subtle increased STIR | | | signal within the C4-C5 cord, as well as, at C6-C7. | | | Craniocervical junction: Normal C2-3: Central disc osteophyte | | | complex without canal or foraminal narrowing. C3-4: Uncovertebral | | | hypertrophy and intervening disc with superimposed annular fissure, as | | | well as thickening of the ligamentum flavum infusion of the right | | | facet joints indent the ventral and dorsal thecal sac, flattening the | | | cord and resulting in moderate to severe canal stenosis. Bilateral | | | facet arthropathy results in mild right neural foraminal narrowing. | | | C4-5: Uncovertebral hypertrophy and intervening disc in combination | | | with bilateral facet arthropathy and buckling of the ligamentum flavum | | | indents the dorsal and ventral thecal sac, flattens the cord and | | | results in severe canal stenosis. Severe left and mild right neural | | | foraminal narrowing. C5-6: Left paracentral disc osteophyte | | | complex in combination with bilateral facet arthropathy indents the | | | ventral thecal sac and flattens the ventral left hemicord resulting in | | | mild canal stenosis and severe left neural foraminal narrowing. | | | C6-7: Uncovertebral hypertrophy and intervening disc with a | | | superimposed 12 mm caudal disc extrusion indents the ventral thecal | | | sac, contacts and displaces the ventral cord and narrows bilateral | | | subarticular zones. There is moderate canal stenosis, moderate-severe | | | left and mild right neuroforaminal narrowing. C7-T1: Unremarkable | | | Posterior fossa: Visualized portions are unremarkable | | | Paraspinal soft tissues: Mild T2/STIR signal within a C3-7 | | | interspinous space suggestive of interspinous ligamentous injury. No | | | epidural hematoma is identified. THORACIC SPINE FINDINGS: | | | Alignment: Normal Marrow: There is a T1 hypointense, T2 | | | hyperintense marrow edema involving the T12 vertebral body with | | | redemonstration of a horizontally oriented fracture with edema | | | involving bilateral, left greater than right pedicles. Additional | | | T2/STIR hyperintense horizontally oriented fracture lucency through | | | the T4 vertebral body. Chronic appearing 20% anterior T5 and a 30% | | | anterior T1 compression deformities.. Spinal cord: Normal | | | There is a right paracentral T12-L1 no disc protrusion narrowing the | | | right subarticular zones and indenting the ventral thecal sac without | | | significant foraminal or canal stenosis. Paraspinal soft tissues: | | | Upper thoracic paraspinal soft tissue edema noted. IMPRESSION: | | | 1. Multilevel degenerative changes of the cervical spine, most | | | severe at C3-C5 and C6-C7 resulting in moderate to severe canal | | | stenosis with associated abnormal cord signal at C4-5 and C6-7. | | | Varying degrees of neural foraminal narrowing, as above. 2. | | | Redemonstration of C6 spinous process fracture, bilateral C7 laminar | | | fractures, and T4 and T12 vertebral body fractures without epidural | | | hematoma or canal stenosis. 3. Extensive soft tissue edema | | | extending into the cervical and upper thoracic interspinous space, | | | suggestive of interspinous ligament is injured. Discussed with | | | trauma ICU internal sales engineer by Dr. Yang at 4:38 AM. I have | | | personally reviewed the images and, if necessary, edited the report. | | | I agree with the report as now presented. | | + + + + + | Procedure Note | + + | Service Account, Radiant Res In Interface - 09/01/2017 10:10 AM PDT EXAM: MRI | | cervical and thoracic spine without contrastHISTORY: Trauma, known vertebral | | fractures.COMPARISON: CT total spine 08/31/17TECHNIQUE: Multiplanar multi-sequence MRI | | cervical and thoracic spine without intravenous contrastFINDINGS: Alignment: Normal | | Marrow: Acute C6 spinous process fracture and bilateral C7 laminar fractures are better | | characterized on CT total spine dated 08/31/17. Spinal Cord: There is a subtle increased | | STIR signal within the C4-C5 cord, as well as, at C6-C7. Craniocervical junction: | | Normal C2-3: Central disc osteophyte complex without canal or foraminal narrowing. | | C3-4: Uncovertebral hypertrophy and intervening disc with superimposed annular fissure, | | as well as thickening of the ligamentum flavum infusion of the right facet joints indent | | the ventral and dorsal thecal sac, flattening the cord and resulting in moderate to | | severe canal stenosis. Bilateral facet arthropathy results in mild right neural | | foraminal narrowing. C4-5: Uncovertebral hypertrophy and intervening disc in | | combination with bilateral facet arthropathy and buckling of the ligamentum flavum | | indents the dorsal and ventral thecal sac, flattens the cord and results in severe canal | | stenosis. Severe left and mild right neural foraminal narrowing. C5-6: Left | | paracentral disc osteophyte complex in combination with bilateral facet arthropathy | | indents the ventral thecal sac and flattens the ventral left hemicord resulting in mild | | canal stenosis and severe left neural foraminal narrowing. C6-7: Uncovertebral | | hypertrophy and intervening disc with a superimposed 12 mm caudal disc extrusion indents | | the ventral thecal sac, contacts and displaces the ventral cord and narrows bilateral | | subarticular zones. There is moderate canal stenosis, moderate-severe left and mild | | right neuroforaminal narrowing. C7-T1: Unremarkable Posterior fossa: Visualized | | portions are unremarkable Paraspinal soft tissues: Mild T2/STIR signal within a C3-7 | | interspinous space suggestive of interspinous ligamentous injury. No epidural hematoma | | is identified.THORACIC SPINE FINDINGS: Alignment: Normal Marrow: There is a T1 | | hypointense, T2 hyperintense marrow edema involving the T12 vertebral body with | | redemonstration of a horizontally oriented fracture with edema involving bilateral, left | | greater than right pedicles. Additional T2/STIR hyperintense horizontally oriented | | fracture lucency through the T4 vertebral body. Chronic appearing 20% anterior T5 and a | | 30% anterior T1 compression deformities.. Spinal cord: Normal There is a right | | paracentral T12-L1 no disc protrusion narrowing the right subarticular zones and | | indenting the ventral thecal sac without significant foraminal or canal stenosis. | | Paraspinal soft tissues: Upper thoracic paraspinal soft tissue edema noted.IMPRESSION:1. | | Multilevel degenerative changes of the cervical spine, most severe at C3-C5 and C6-C7 | | resulting in moderate to severe canal stenosis with associated abnormal cord signal at | | C4-5 and C6-7. Varying degrees of neural foraminal narrowing, as above.2. | | Redemonstration of C6 spinous process fracture, bilateral C7 laminar fractures, and T4 | | and T12 vertebral body fractures without epidural hematoma or canal stenosis.3. | | Extensive soft tissue edema extending into the cervical and upper thoracic interspinous | | space, suggestive of interspinous ligament is injured.Discussed with trauma ICU internal sales engineer | | by Dr. Yang at 4:38 AM.I have personally reviewed the images and, if necessary, | | edited the report. I agree with the report as now presented. | |3. Extensive soft tissue edema extending into the cervical and upper thoracic interspinous space, suggestive of interspinous ligament is injured. | | | |Discussed with trauma ICU internal sales engineer by Dr. Yang at 4:38 AM. | | | | | |I have personally reviewed the images and, if necessary, edited the report. I agree with t he report as now presented. | + + + +---------+ + + | Performing | Address | City/State/Zipcode | Phone Number | | Organization | | | | + +---------+ + + | [facility] | | | | | VOICE RECOGNITION | | | | + +---------+ + + RENAL FUNCTION SET (NA,K,CL,CO2,BUN,CREAT,GLUC,CA,PHOS,ALB ) (09/01/2017 1:33 AM PDT) + +---------+ + + + | Component | Value | Ref Range | Performed | Pathologist | | | | | At | Signature | + +---------+ + + + | GLUCOSE, | 129 (H) | 70 - 99 mg/dL | [facility] | | | PLASMA | | | LABORATORY | | | (LAB) | | | SERVICES, | | | | | | CORE | | + +---------+ + + + | BUN, PLASMA | 10 | 6 - 20 mg/dL | [facility] | | | (LAB) | | | LABORATORY | | | | | | SERVICES, | | | | | | CORE | | + +---------+ + + + | CREATININE | 0.72 | 0.70 - 1.30 | [facility] | | | PLASMA | | mg/dL | LABORATORY | | | (LAB) | | | SERVICES, | | | | | | CORE | | + +---------+ + + + | EGFR | >60 | >60 mL/min | [facility] | | | - | | | LABORATORY | | | SUDANESE | | | SERVICES, | | | | | | CORE | | + +---------+ + + + | EGFR NON | >60 | >60 mL/min | [facility] | | | -KAYE | | | LABORATORY | | | RICAN | | | SERVICES, | | | | | | CORE | | + +---------+ + + + | SODIUM, | 148 (H) | 136 - 145 | [facility] | | | PLASMA | | mmol/L | LABORATORY | | | (LAB) | | | SERVICES, | | | | | | CORE | | + +---------+ + + + | POTASSIUM, | 3.7 | 3.4 - 5.0 | [facility] | | | PLASMA | | mmol/L | LABORATORY | | | (LAB) | | | SERVICES, | | | | | | CORE | | + +---------+ + + + | CHLORIDE, | 114 (H) | 97 - 108 mmol/L | [facility] | | | PLASMA | | | LABORATORY | | | (LAB) | | | SERVICES, | | | | | | CORE | | + +---------+ + + + | TOTAL CO2, | 26 | 21 - 32 mmol/L | [facility] | | | PLASMA | | | LABORATORY | | | (LAB) | | | SERVICES, | | | | | | CORE | | + +---------+ + + + | CALCIUM, | 7.1 (L) | 8.6 - 10.2 | [facility] | | | PLASMA | | mg/dL | LABORATORY | | | (LAB) | | | SERVICES, | | | | | | CORE | | + +---------+ + + + | CALCIUM(ALB | 8.4 (L) | 8.6 - 10.2 | [facility] | | | CORRECTED) | | mg/dL | LABORATORY | | | | | | SERVICES, | | | | | | CORE | | + +---------+ + + + | ALBUMIN, | 2.4 (L) | 3.5 - 4.7 g/dL | [facility] | | | PLASMA | | | LABORATORY | | | (LAB) | | | SERVICES, | | | | | | CORE | | + +---------+ + + + | PHOSPHORUS, | 2.9 | 2.4 - 4.7 mg/dL | [facility] | | | PLASMA | | | LABORATORY | | | (LAB) | | | SERVICES, | | | | | | CORE | | + +---------+ + + + | POTASSIUM | No Hemo | | [facility] | | | CMNT | | | LABORATORY | | | | | | SERVICES, | | | | | | CORE | | + +---------+ + + + | ANION GAP | 8 | 4 - 11 mmol/L | [facility] | | | | | | LABORATORY | | | | | | SERVICES, | | | | | | CORE | | + +---------+ + + + | ANION | 12 (H) | 4 - 11 mmol/L | [facility] | | | GAP(ALB | | | LABORATORY | | | CORRECTED) | | | SERVICES, | | | | | | CORE | | + +---------+ + + + + + | Specimen | + + | Blood - Blood | | (substance) | + + + + + | Narrative | Performed At | + + + | GFR is estimated using the MDRD equation recommended by the | [facility] | | National Kidney Disease Education Program. Estimated GFR | LABORATORY | | Interpretive Information: <60 mL/min/1.73 sq m | SERVICES, CORE | | Chronic Kidney Disease <15 mL/min/1.73 sq m | | | Kidney Failure Estimated GFR greater that 60 mL/min/1.73 sq m is of | | | limited clinical value. The MDRD equation is not valid in the | | | following situations: - Patients under 18 years of age - Severe | | | malnutrition or obesity - Vegetarian diet - Rapidly changing kidney | | | function - Amputees, paraplegics, or other muscle-wasting diseses | | + + + + + + + + | Performing | Address | City/State/Zipcode | Phone Number | | Organization | | | | + + + + + | [facility] | [address] | [place] [address] | | | SERVICES, CORE | [address] | | | + + + + + MAGNESIUM, PLASMA (09/01/2017 1:33 AM PDT) + +---------+ + + + | Component | Value | Ref Range | Performed | Pathologist | | | | | At | Signature | + +---------+ + + + | MAGNESIUM,P | 1.4 (L) | 1.6 - 2.6 mg/dL | [facility] | | | LASMA | | | LABORATORY | | | | | | SERVICES, | | | | | | CORE | | + +---------+ + + + + + | Specimen | + + | Blood - Blood | | (substance) | + + + + + | Narrative | Performed At | + + + | Reference range change effective 12/11/16. | [facility] | | | LABORATORY | | | [address] | + + + + + + + + | Performing | Address | City/State/Zipcode | Phone Number | | Organization | | | | + + + + + | [facility] | [address] | [place] [address] | | | SERVICES, NATAL[place] | [address] | | | + + + + + CBC (HEMOGRAM) ONLY (09/01/2017 1:32 AM PDT) + + + + + + | Component | Value | Ref Range | Performed | Pathologist | | | | | At | Signature | + + + + + + | WHITE CELL | 11.65 (H) | 3.50 - 10.80 | [facility] | | | COUNT | | K/cu mm | LABORATORY | | | | | | SERVICES, | | | | | | CORE | | + + + + + + | RED CELL | 2.95 (L) | 4.50 - 6.00 | [facility] | | | COUNT | | M/cu mm | LABORATORY | | | | | | SERVICES, | | | | | | CORE | | + + + + + + | HEMOGLOBIN | 8.1 (L) | 13.5 - 17.5 | [facility] | | | | | g/dL | LABORATORY | | | | | | SERVICES, | | | | | | CORE | | + + + + + + | HEMATOCRIT | 24.8 (L) | 41.0 - 53.0 % | [facility] | | | | | | LABORATORY | | | | | | SERVICES, | | | | | | CORE | | + + + + + + | MCV | 84.1 | 80.0 - 96.0 fL | [facility] | | | | | | LABORATORY | | | | | | SERVICES, | | | | | | CORE | | + + + + + + | MCHC | 32.7 | 33.0 - 35.5 | [facility] | | | | | g/dL | LABORATORY | | | | | | SERVICES, | | | | | | CORE | | + + + + + + | RDW SD | 45.6 | 35.1 - 46.3 fL | [facility] | | | | | | LABORATORY | | | | | | SERVICES, | | | | | | CORE | | + + + + + + | PLATELET | 78 (L)Comment: | 150 - 400 K/cu | [facility] | | | COUNT | Macroplatelets present. | mm | LABORATORY | | | | | | SERVICES, | | | | | | CORE | | + + + + + + | MPV | 9.7 | 9.7 - 12.3 fL | [facility] | | | | | | LABORATORY | | | | | | SERVICES, | | | | | | CORE | | + + + + + + | NRBC% | 0.0 | 0.0 - 0.3 % | [facility] | | | | | | LABORATORY | | | | | | SERVICES, | | | | | | CORE | | + + + + + + | NRBC# | 0.00 | 0.00 - 0.02 | [facility] | | | | | K/cu mm | LABORATORY | | | | | | SERVICES, | | | | | | CORE | | + + + + + + + + | Specimen | + + | Blood - Blood | | (substance) | + + + + + + + | Performing | Address | City/State/Zipcode | Phone Number | | Organization | | | | + + + + + | [facility] | [address] | [place] [address] | | | SERVICES, CORE | [address] | | | + + + + + LACTATE (09/01/2017 1:32 AM PDT) + +-------+ + + + | Component | Value | Ref Range | Performed | Pathologist | | | | | At | Signature | + +-------+ + + + | LACTATE | 1.4 | mmol/L | [facility] | | | | | | LABORATORY | | | | | | SERVICES, | | | | | | CORE | | + +-------+ + + + + + | Specimen | + + | Blood - Blood | | (substance) | + + + + + | Narrative | Performed At | + + + | Reference Range: Venous blood: 0.5 - 2.2 mmol/L Critical | [facility] | | >= 4.0 mmol/L Arterial blood: 0.5 - 1.6 mmol/L Critical >= 4.0 | LABORATORY | | mmol/L | [address] | + + + + + + + + | Performing | Address | City/State/Zipcode | Phone Number | | Organization | | | | + + + + + | [facility] | [address] | [place] [address] | | | [address] | [address] | | | + + + + + PROCEDURE NOTE (09/01/2017 1:07 AM PDT) + + + | Narrative | Performed At | + + + | Julio Valencia MD 08/31/2017 7:01 PM Procedure Note: Chest | | | Tube Insertion Indications: Clinically significant: | | | Hypotension, trauma, concern for left hemothorax Procedure | | | Details Informed consent, was not obtained due to the urgency of the | | | procedure and the patient condition after discussion of the | | | risks, benefits, and alternatives to the procedure, and a timeout | | | was performed. The patient was placed in the appropriate position. | | | The landmarks for left sided was obtained. The area was prepped | | | and draped in the usual sterile fashion. A scalpel was used to | | | make an incision at the selected site, blunt dissection was | | | performed and the pleura opened. Digital inspection of the tunnel | | | and pleural spaced was performed. A 32 size Iraqi chest tube was | | | placed into the pleural space. The return from the chest tube was | | | minimal return of air. The tube was attached to an underwater seal | | | apparatus. The tube was sutured in place in the usual fashion and | | | an appropriate dressing was placed over the site. The patient | | | tolerated the procedure well. There was misting in the tube once | | | the chest tube was placed. He was taken directly to the CT scanner | | | after the chest tube was placed. Chest tube appeared well placed | | | in CT scanner and confirmed once in the ICU. Dr. Ware | | | Tammy was present for the procedure. Findings: None | | | Specimens: None Complications: None; patient | | | tolerated the procedure well. Condition: | | | Blood pressure improving with ongoing resuscitation, taken directly | | | to the CT scanner. JULIO VALENCIA MD | | + + + CT HEAD WO CONTRAST (09/01/2017 12:54 AM PDT) + + | Specimen | + + | | + + + + + | Narrative | Performed At | + + + | EXAM: CT head without contrast HISTORY: Intracranial hemorrhage | [facility] | | COMPARISON: CT head yesterday and outside CT head yesterday | RADIOLOGY VOICE | | TECHNIQUE: CT of the head without contrast. FINDINGS: Brain: | RECOGNITION | | Post surgical changes from right convexity craniotomy and cranioplasty | | | are redemonstrated. Right convexity fluid collection with both | | | intracranial and extracranial components about the right cranioplasty | | | demonstrates slight increase in size, as well as density. The | | | intracranial component now measures 11 mm thick (previously 9 mm) of | | | the extracranial component measures 9 mm (previously 7 mm). Increased | | | density and layering blood products are present within the | | | collections. Slight increased effacement of right frontal gyri. There | | | is 4 mm leftward midline shift as before. The basal cisterns remain | | | patent. Right temporoparietal encephalomalacia is unchanged. No new | | | territorial loss of hahn-white differentiation. The ventricles are | | | stable in size and morphology. IMPRESSION: Slight increased | | | size and density of right convexity subdural and subgaleal fluid | | | collections, consistent with interval progression of hemorrhage. | | | Unchanged 4 mm leftward midline shift. No herniation. Stable | | | ventricles. Discussed with the trauma ICU internal sales engineer at 12:12 AM by | | | Dr. Yang. I have personally reviewed the images and, if | | | necessary, edited the report. I agree with the report as now | | | presented. | | + + + + + | Procedure Note | + + | Service Account, Hickies Res In Interface - 09/01/2017 10:14 AM PDT EXAM: CT head | | without contrastHISTORY: Intracranial hemorrhageCOMPARISON: CT head yesterday and | | outside CT head yesterdayTECHNIQUE: CT of the head without contrast.FINDINGS:Brain: Post | | surgical changes from right convexity craniotomy and cranioplasty are redemonstrated. | | Right convexity fluid collection with both intracranial and extracranial components | | about the right cranioplasty demonstrates slight increase in size, as well as density. | | The intracranial component now measures 11 mm thick (previously 9 mm) of the | | extracranial component measures 9 mm (previously 7 mm). Increased density and layering |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 [facility] - | | | | | mmol/L | [facility] | | | | | | [facility] | | | | | | OF CARE | | | | | | TESTS | | + + + + + + | POTASSIUM, | 3.6 | 3.4 - 5.0 | [facility] - | | | POC | | mmol/L | [facility] | | | | | | [facility] | | | | | | OF CARE | | | | | | TESTS | | + + + + + + | CHLORIDE, | 108.0 | 97 - 108 mmol/L | [facility] - | | | POC | | | [place] | | | | | | [facility] | | | | | | OF CARE | | | | | | TESTS | | + + + + + + | IONIZED | 1.02 (L) | 1.14 - 1.32 | [facility] - | | | CALCIUM, | | mmol/L | [facility] | | | POC | | | [facility] | | | | | | OF CARE | | | | | | TESTS | | + + + + + + | TCO2, POC | 22 | 22 - 29 mmol/L | [facility] - | | | | | | [facility] | | | | | | [facility] | | | | | | OF CARE | | | | | | TESTS | | + + + + + + | GLUCOSE, | 137 (H) | 70 - 99 mg/dL | [facility] - | | | POC | | | [facility] | | | | | | [facility] | | | | | | OF CARE | | | | | | TESTS | | + + + + + + | BUN, POC | 9 | 6 - 20 mg/dL | [facility] - | | | | | | [place] | | | | | | [facility] | | | | | | OF CARE | | | | | | TESTS | | + + + + + + | CREATININE, | 0.9 | 0.7 - 1.3 mg/dL | [facility] - | | | POC | | | [facility] | | | | | | [place] | | | | | | OF CARE | | | | | | TESTS | | + + + + + + | HEMOGLOBIN, | 9.5 (L) | 13.5 - 17.5 | [facility] - | | | POC | | g/dL | [facility] | | | | | | [place] | | | | | | OF CARE | | | | | | TESTS | | + + + + + + | HEMATOCRIT, | 28 (L) | 41.0 - 53.0 | [facility] - | | | POC | | %PCV | [facility] | | | | | | [place] | | | | | | OF CARE | | | | | | TESTS | | + + + + + + + + | Specimen | + + | | + + + + + + + | Performing | Address | City/State/Zipcode | Phone Number | | Organization | | | | + + + + + | [facility] | [address] | [place], [place] | | | [facility] | [address] | [phone] | | | TESTS | | | | + + + + + ED BG-LAC,POC (08/31/2017 5:21 PM PDT) + + + + + + | Component | Value | Ref Range | Performed | Pathologist | | | | | At | Signature | + + + + + + | ED BG POC | 21 (L) | 23 - 29 mmol/L | [facility] - | | | TC02 | | | [facility] | | | | | | [facility] | | | | | | OF CARE | | | | | | TESTS | | + + + + + + | ED BG POC | 7.31 (L) | 7.35 - 7.45 | [facility] - | | | PH | | | [place] | | | | | | [facility] | | | | | | OF CARE | | | | | | TESTS | | + + + + + + | ED BG POC | 39 | 35 - 50 mmHg | [facility] - | | | PCO2 | | | [place] | | | | | | [facility] | | | | | | OF CARE | | | | | | TESTS | | + + + + + + | ED BG POC | 20 (L) | 22 - 28 mmol/L | [facility] - | | | HCO3 | | | [facility] | | | | | | [facility] | | | | | | OF CARE | | | | | | TESTS | | + + + + + + | ED BG POC | -6.0 | mmol/L | [facility] - | | | BE | | | [facility] | | | | | | [facility] | | | | | | OF CARE | | | | | | TESTS | | + + + + + + | ED BG POC | 78 (H) | 30 - 55 mmHg | [facility] - | | | PO2 | | | [facility] | | | | | | [facility] | | | | | | OF CARE | | | | | | TESTS | | + + + + + + | ED BG POC | 95 | % | [facility] - | | | SO2 | | | [facility] | | | | | | [facility] | | | | | | OF CARE | | | | | | TESTS | | + + + + + + | ED LACTATE | 4.6 (AA) | 0.5 - 2.2 | [facility] - | | | POC | | mmol/L | [facility] | | | | | | [facility] | | | | | | OF CARE | | | | | | TESTS | | + + + + + + | ED BG POC | 97.4 F | | [facility] - | | | TEMP | | | [facility] | | | | | | [facility] | | | | | | OF CARE | | | | | | TESTS | | + + + + + + | ISTAT | VENOUS | | [facility] - | | | SAMPLE TYPE | | | [facility] | | | | | | [facility] | | | | | | OF CARE | | | | | | TESTS | | + + + + + + + + | Specimen | + + | | + + + + + + + | Performing | Address | City/State/Zipcode | Phone Number | | Organization | | | | + + + + + | [facility] | [address] | [place], [place] | | | [facility] OF CARE | [facility] | [address] | | | TESTS | | | | + + + + + PRODUCT - RED CELLS LEUKOREDUCED (08/31/2017 5:06 PM PDT) + + + + + + | Component | Value | Ref Range | Performed | Pathologist | | | | | At | Signature | + + + + + + | PRODUCT | -1 RED BLOOD CELL | | [facility] | | | DESCRIPTION | ADENINE-SALINE ADDED | | LABORATORY | | | | LEUKOCYTE | | SERVICES, | | | | | | TRANSFUSION | | | | | | MEDICINE | | + + + + + + | PRODUCT | [id number] | | [facility] | | | UNIT # | | | LABORATORY | | | | | | SERVICES, | | | | | | TRANSFUSION | | | | | | MEDICINE | | + + + + + + | UNIT ABO | O | | [facility] | | | | | | LABORATORY | | | | | | SERVICES, | | | | | | TRANSFUSION | | | | | | MEDICINE | | + + + + + + | UNIT RH | POS | | [facility] | | | | | | LABORATORY | | | | | | SERVICES, | | | | | | TRANSFUSION | | | | | | MEDICINE | | + + + + + + | STATUS OF | Returned to Blood Bank | | [facility] | | | UNIT | | | LABORATORY | | | | | | SERVICES, | | | | | | TRANSFUSION | | | | | | MEDICINE | | + + + + + + | EXPIRATION | [phone] | | [facility] | | | DATE | | | LABORATORY | | | | | | SERVICES, | | | | | | TRANSFUSION | | | | | | MEDICINE | | + + + + + + | BLOOD TYPE | 5100 | | [facility] | | | BARCODE | | | LABORATORY | | | | | | SERVICES, | | | | | | TRANSFUSION | | | | | | MEDICINE | | + + + + + + | BLOOD | [id number] | | [facility] | | | PRODUCT | | | LABORATORY | | | CODE | | | SERVICES, | | | | | | TRANSFUSION | | | | | | MEDICINE | | + + + + + + + + | Specimen | + + | | + + + + + + + | Performing | Address | City/State/Zipcode | Phone Number | | Organization | | | | + + + + + | [facility] | [address] | [place] [address] | | | SERVICES, | [address] | | | | TRANSFUSION MEDICINE | | | | + + + + + PRODUCT - RED CELLS LEUKOREDUCED (08/31/2017 5:06 PM PDT) + + + + + + | Component | Value | Ref Range | Performed | Pathologist | | | | | At | Signature | + + + + + + | PRODUCT | -1 RED BLOOD CELL | | [facility] | | | DESCRIPTION | ADENINE-SALINE ADDED | | LABORATORY | | | | LEUKOCYTE | | SERVICES, | | | | | | TRANSFUSION | | | | | | MEDICINE | | + + + + + + | PRODUCT | [id number] | | [facility] | | | UNIT # | | | LABORATORY | | | | | | SERVICES, | | | | | | TRANSFUSION | | | | | | MEDICINE | | + + + + + + | UNIT ABO | O | | [facility] | | | | | | LABORATORY | | | | | | SERVICES, | | | | | | TRANSFUSION | | | | | | MEDICINE | | + + + + + + | UNIT RH | POS | | [facility] | | | | | | LABORATORY | | | | | | SERVICES, | | | | | | TRANSFUSION | | | | | | MEDICINE | | + + + + + + | STATUS OF | Presumed Transfused | | [facility] | | | UNIT | | | LABORATORY | | | | | | SERVICES, | | | | | | TRANSFUSION | | | | | | MEDICINE | | + + + + + + | EXPIRATION | [id number] | | [facility] | | | DATE | | | LABORATORY | | | | | | SERVICES, | | | | | | TRANSFUSION | | | | | | MEDICINE | | + + + + + + | BLOOD TYPE | 5100 | | [facility] | | | BARCODE | | | LABORATORY | | | | | | SERVICES, | | | | | | TRANSFUSION | | | | | | MEDICINE | | + + + + + + | BLOOD | [id number] | | [facility] | | | PRODUCT | | | LABORATORY | | | CODE | | | SERVICES, | | | | | | TRANSFUSION | | | | | | MEDICINE | | + + + + + + + + | Specimen | + + | | + + + + + + + | Performing | Address | City/State/Zipcode | Phone Number | | Organization | | | | + + + + + | [facility] | [address] | [place] [address] | | | SERVICES, | [address] | | | | TRANSFUSION MEDICINE | | | | + + + + + PRODUCT - RED CELLS LEUKOREDUCED (08/31/2017 5:06 PM PDT) + + + + + + | Component | Value | Ref Range | Performed | Pathologist | | | | | At | Signature | + + + + + + | PRODUCT | -1 RED BLOOD CELL | | [facility] | | | DESCRIPTION | ADENINE-SALINE ADDED | | LABORATORY | | | | LEUKOCYTE | | SERVICES, | | | | | | TRANSFUSION | | | | | | MEDICINE | | + + + + + + | PRODUCT | [id number] | | [facility] | | | UNIT # | | | LABORATORY | | | | | | SERVICES, | | | | | | TRANSFUSION | | | | | | MEDICINE | | + + + + + + | UNIT ABO | O | | [facility] | | | | | | LABORATORY | | | | | | SERVICES, | | | | | | TRANSFUSION | | | | | | MEDICINE | | + + + + + + | UNIT RH | POS | | [facility] | | | | | | LABORATORY | | | | | | SERVICES, | | | | | | TRANSFUSION | | | | | | MEDICINE | | + + + + + + | STATUS OF | Returned to Blood Bank | | [facility] | | | UNIT | | | LABORATORY | | | | | | SERVICES, | | | | | | TRANSFUSION | | | | | | MEDICINE | | + + + + + + | EXPIRATION | [phone] | | [facility] | | | DATE | | | LABORATORY | | | | | | SERVICES, | | | | | | TRANSFUSION | | | | | | MEDICINE | | + + + + + + | BLOOD TYPE | 5100 | | [facility] | | | BARCODE | | | LABORATORY | | | | | | SERVICES, | | | | | | TRANSFUSION | | | | | | MEDICINE | | + + + + + + | BLOOD | [id number] | | [facility] | | | PRODUCT | | | LABORATORY | | | CODE | | | SERVICES, | | | | | | TRANSFUSION | | | | | | MEDICINE | | + + + + + + + + | Specimen | + + | | + + + + + + + | Performing | Address | City/State/Zipcode | Phone Number | | Organization | | | | + + + + + | [facility] | [address] | [place] [address] | | | SERVICES, | [address] | | | | TRANSFUSION MEDICINE | | | | + + + + + PRODUCT - RED CELLS LEUKOREDUCED (08/31/2017 5:06 PM PDT) + + + + + + | Component | Value | Ref Range | Performed | Pathologist | | | | | At | Signature | + + + + + + | PRODUCT | -1 RED BLOOD CELL | | [facility] | | | DESCRIPTION | ADENINE-SALINE ADDED | | LABORATORY | | | | LEUKOCYTE | | SERVICES, | | | | | | TRANSFUSION | | | | | | MEDICINE | | + + + + + + | PRODUCT | [id number] | | [facility] | | | UNIT # | | | LABORATORY | | | | | | SERVICES, | | | | | | TRANSFUSION | | | | | | MEDICINE | | + + + + + + | UNIT ABO | O | | [facility] | | | | | | LABORATORY | | | | | | SERVICES, | | | | | | TRANSFUSION | | | | | | MEDICINE | | + + + + + + | UNIT RH | POS | | [facility] | | | | | | LABORATORY | | | | | | SERVICES, | | | | | | TRANSFUSION | | | | | | MEDICINE | | + + + + + + | STATUS OF | Presumed Transfused | | [facility] | | | UNIT | | | LABORATORY | | | | | | SERVICES, | | | | | | TRANSFUSION | | | | | | MEDICINE | | + + + + + + | EXPIRATION | [phone] | | [facility] | | | DATE | | | LABORATORY | | | | | | SERVICES, | | | | | | TRANSFUSION | | | | | | MEDICINE | | + + + + + + | BLOOD TYPE | 5100 | | [facility] | | | BARCODE | | | LABORATORY | | | | | | SERVICES, | | | | | | TRANSFUSION | | | | | | MEDICINE | | + + + + + + | BLOOD | [id number] | | [facility] | | | PRODUCT | | | LABORATORY | | | CODE | | | SERVICES, | | | | | | TRANSFUSION | | | | | | MEDICINE | | + + + + + + + + | Specimen | + + | | + + + + + + + | Performing | Address | City/State/Zipcode | Phone Number | | Organization | | | | + + + + + | [facility] | [address] | [place] [address] | | | SERVICES, | [address] | | | | TRANSFUSION MEDICINE | | | | + + + + + PRODUCT - FRESH FROZEN PLASMA (08/31/2017 5:05 PM PDT) + + + + + + | Component | Value | Ref Range | Performed | Pathologist | | | | | At | Signature | + + + + + + | PRODUCT | LIQUID PLASMA, | | [facility] | | | DESCRIPTION | IRRADIATED | | LABORATORY | | | | | | SERVICES, | | | | | | TRANSFUSION | | | | | | MEDICINE | | + + + + + + | PRODUCT | [id number] | | [facility] | | | UNIT # | | | LABORATORY | | | | | | SERVICES, | | | | | | TRANSFUSION | | | | | | MEDICINE | | + + + + + + | UNIT ABO | A | | [facility] | | | | | | LABORATORY | | | | | | SERVICES, | | | | | | TRANSFUSION | | | | | | MEDICINE | | + + + + + + | UNIT RH | POS | | [facility] | | | | | | LABORATORY | | | | | | SERVICES, | | | | | | TRANSFUSION | | | | | | MEDICINE | | + + + + + + | STATUS OF | Presumed Transfused | | [facility] | | | UNIT | | | LABORATORY | | | | | | SERVICES, | | | | | | TRANSFUSION | | | | | | MEDICINE | | + + + + + + | EXPIRATION | [id number] | | [facility] | | | DATE | | | LABORATORY | | | | | | SERVICES, | | | | | | TRANSFUSION | | | | | | MEDICINE | | + + + + + + | BLOOD TYPE | 6200 | | [facility] | | | BARCODE | | | LABORATORY | | | | | | SERVICES, | | | | | | TRANSFUSION | | | | | | MEDICINE | | + + + + + + | BLOOD | [id number] | | [facility] | | | PRODUCT | | | LABORATORY | | | CODE | | | SERVICES, | | | | | | TRANSFUSION | | | | | | MEDICINE | | + + + + + + + + | Specimen | + + | | + + + + + + + | Performing | Address | City/State/Zipcode | Phone Number | | Organization | | | | + + + + + | [facility] | [address] | [place] [address] | | | SERVICES, | [address] | | | | TRANSFUSION MEDICINE | | | | + + + + + PRODUCT - FRESH FROZEN PLASMA (08/31/2017 5:05 PM PDT) + + + + + + | Component | Value | Ref Range | Performed | Pathologist | | | | | At | Signature | + + + + + + | PRODUCT | LIQUID PLASMA, | | [facility] | | | DESCRIPTION | IRRADIATED | | LABORATORY | | | | | | SERVICES, | | | | | | TRANSFUSION | | | | | | MEDICINE | | + + + + + + | PRODUCT | [id number] | | [facility] | | | UNIT # | | | LABORATORY | | | | | | SERVICES, | | | | | | TRANSFUSION | | | | | | MEDICINE | | + + + + + + | UNIT ABO | A | | [facility] | | | | | | LABORATORY | | | | | | SERVICES, | | | | | | TRANSFUSION | | | | | | MEDICINE | | + + + + + + | UNIT RH | POS | | [facility] | | | | | | LABORATORY | | | | | | SERVICES, | | | | | | TRANSFUSION | | | | | | MEDICINE | | + + + + + + | STATUS OF | Presumed Transfused | | [facility] | | | UNIT | | | LABORATORY | | | | | | SERVICES, | | | | | | TRANSFUSION | | | | | | MEDICINE | | + + + + + + | EXPIRATION | [phone] | | [facility] | | | DATE | | | LABORATORY | | | | | | SERVICES, | | | | | | TRANSFUSION | | | | | | MEDICINE | | + + + + + + | BLOOD TYPE | 6200 | | [facility] | | | BARCODE | | | LABORATORY | | | | | | SERVICES, | | | | | | TRANSFUSION | | | | | | MEDICINE | | + + + + + + | BLOOD | [id number] | | [facility] | | | PRODUCT | | | LABORATORY | | | CODE | | | SERVICES, | | | | | | TRANSFUSION | | | | | | MEDICINE | | + + + + + + + + | Specimen | + + | | + + + + + + + | Performing | Address | City/State/Zipcode | Phone Number | | Organization | | | | + + + + + | [facility] | [address] | [place] [address] | | | SERVICES, | [address] | | | | TRANSFUSION MEDICINE | | | | + + + + + PRODUCT - FRESH FROZEN PLASMA (08/31/2017 5:05 PM PDT) + + + + + + | Component | Value | Ref Range | Performed | Pathologist | | | | | At | Signature | + + + + + + | PRODUCT | LIQUID PLASMA, | | [facility] | | | DESCRIPTION | IRRADIATED | | LABORATORY | | | | | | SERVICES, | | | | | | TRANSFUSION | | | | | | MEDICINE | | + + + + + + | PRODUCT | [id number] | | [facility] | | | UNIT # | | | LABORATORY | | | | | | SERVICES, | | | | | | TRANSFUSION | | | | | | MEDICINE | | + + + + + + | UNIT ABO | A | | [facility] | | | | | | LABORATORY | | | | | | SERVICES, | | | | | | TRANSFUSION | | | | | | MEDICINE | | + + + + + + | UNIT RH | POS | | [facility] | | | | | | LABORATORY | | | | | | SERVICES, | | | | | | TRANSFUSION | | | | | | MEDICINE | | + + + + + + | STATUS OF | Returned to Blood Bank | | [facility] | | | UNIT | | | LABORATORY | | | | | | SERVICES, | | | | | | TRANSFUSION | | | | | | MEDICINE | | + + + + + + | EXPIRATION | [phone] | | [facility] | | | DATE | | | LABORATORY | | | | | | SERVICES, | | | | | | TRANSFUSION | | | | | | MEDICINE | | + + + + + + | BLOOD TYPE | 6200 | | [facility] | | | BARCODE | | | LABORATORY | | | | | | SERVICES, | | | | | | TRANSFUSION | | | | | | MEDICINE | | + + + + + + | BLOOD | [id number] | | [facility] | | | PRODUCT | | | LABORATORY | | | CODE | | | SERVICES, | | | | | | TRANSFUSION | | | | | | MEDICINE | | + + + + + + + + | Specimen | + + | | + + + + + + + | Performing | Address | City/State/Zipcode | Phone Number | | Organization | | | | + + + + + | [facility] | [address] | [place] [address] | | | SERVICES, | [address] | | | | TRANSFUSION MEDICINE | | | | + + + + + PRODUCT - FRESH FROZEN PLASMA (08/31/2017 5:05 PM PDT) + + + + + + | Component | Value | Ref Range | Performed | Pathologist | | | | | At | Signature | + + + + + + | PRODUCT | LIQUID PLASMA, | | [facility] | | | DESCRIPTION | IRRADIATED | | LABORATORY | | | | | | SERVICES, | | | | | | TRANSFUSION | | | | | | MEDICINE | | + + + + + + | PRODUCT | [id number] | | [facility] | | | UNIT # | | | LABORATORY | | | | | | SERVICES, | | | | | | TRANSFUSION | | | | | | MEDICINE | | + + + + + + | UNIT ABO | A | | [facility] | | | | | | LABORATORY | | | | | | SERVICES, | | | | | | TRANSFUSION | | | | | | MEDICINE | | + + + + + + | UNIT RH | POS | | [facility] | | | | | | LABORATORY | | | | | | SERVICES, | | | | | | TRANSFUSION | | | | | | MEDICINE | | + + + + + + | STATUS OF | Returned to Blood Bank | | [facility] | | | UNIT | | | LABORATORY | | | | | | SERVICES, | | | | | | TRANSFUSION | | | | | | MEDICINE | | + + + + + + | EXPIRATION | [phone] | | [facility] | | | DATE | | | LABORATORY | | | | | | SERVICES, | | | | | | TRANSFUSION | | | | | | MEDICINE | | + + + + + + | BLOOD TYPE | 6200 | | [facility] | | | BARCODE | | | LABORATORY | | | | | | SERVICES, | | | | | | TRANSFUSION | | | | | | MEDICINE | | + + + + + + | BLOOD | [id number] | | [facility] | | | PRODUCT | | | LABORATORY | | | CODE | | | SERVICES, | | | | | | TRANSFUSION | | | | | | MEDICINE | | + + + + + + + + | Specimen | + + | | + + + + + + + | Performing | Address | City/State/Zipcode | Phone Number | | Organization | | | | + + + + + | [facility] | [address] | [place] [address] | | | SERVICES, | [address] | | | | TRANSFUSION MEDICINE | | | | + + + + + CBC (HEMOGRAM) ONLY (08/31/2017 4:50 PM PDT) + + + + + + | Component | Value | Ref Range | Performed | Pathologist | | | | | At | Signature | + + + + + + | WHITE CELL | 26.57 (H) | 3.50 - 10.80 | [facility] | | | COUNT | | K/cu mm | LABORATORY | | | | | | SERVICES, | | | | | | CORE | | + + + + + + | RED CELL | 3.46 (L) | 4.50 - 6.00 | [facility] | | | COUNT | | M/cu mm | LABORATORY | | | | | | SERVICES, | | | | | | CORE | | + + + + + + | HEMOGLOBIN | 9.0 (L) | 13.5 - 17.5 | [facility] | | | | | g/dL | LABORATORY | | | | | | SERVICES, | | | | | | CORE | | + + + + + + | HEMATOCRIT | 29.1 (L) | 41.0 - 53.0 % | [facility] | | | | | | LABORATORY | | | | | | SERVICES, | | | | | | CORE | | + + + + + + | MCV | 84.1 | 80.0 - 96.0 fL | [facility] | | | | | | LABORATORY | | | | | | SERVICES, | | | | | | CORE | | + + + + + + | MCHC | 30.9 | 33.0 - 35.5 | [facility] | | | | | g/dL | LABORATORY | | | | | | SERVICES, | | | | | | CORE | | + + + + + + | RDW SD | 46.9 (H) | 35.1 - 46.3 fL | [facility] | | | | | | LABORATORY | | | | | | SERVICES, | | | | | | CORE | | + + + + + + | PLATELET | 152 | 150 - 400 K/cu | [facility] | | | COUNT | | mm | LABORATORY | | | | | | SERVICES, | | | | | | CORE | | + + + + + + | MPV | 8.6 (L) | 9.7 - 12.3 fL | [facility] | | | | | | LABORATORY | | | | | | SERVICES, | | | | | | CORE | | + + + + + + | NRBC% | 0.0 | 0.0 - 0.3 % | [facility] | | | | | | LABORATORY | | | | | | SERVICES, | | | | | | CORE | | + + + + + + | NRBC# | 0.00 | 0.00 - 0.02 | [facility] | | | | | K/cu mm | LABORATORY | | | | | | SERVICES, | | | | | | CORE | | + + + + + + + + | Specimen | + + | Blood - Blood | | (substance) | + + + + + + + | Performing | Address | City/State/Zipcode | Phone Number | | Organization | | | | + + + + + | [facility] | [address] | [place] [address] | | | SERVICES, CORE | [address] | | | + + + + + BASIC METABOLIC SET (NA, K, CL, TCO2, BUN, CR, GLU, CA) (08/31/2017 4:50 PM PDT) + +---------+ + + + | Component | Value | Ref Range | Performed | Pathologist | | | | | At | Signature | + +---------+ + + + | GLUCOSE, | 131 (H) | 70 - 99 mg/dL | [facility] | | | PLASMA | | | LABORATORY | | | (LAB) | | | SERVICES, | | | | | | CORE | | + +---------+ + + + | BUN, PLASMA | 10 | 6 - 20 mg/dL | [facility] | | | (LAB) | | | LABORATORY | | | | | | SERVICES, | | | | | | CORE | | + +---------+ + + + | CREATININE | 0.75 | 0.70 - 1.30 | [facility] | | | PLASMA | | mg/dL | LABORATORY | | | (LAB) | | | SERVICES, | | | | | | CORE | | + +---------+ + + + | EGFR | >60 | >60 mL/min | [facility] | | | - | | | LABORATORY | | | SUDANESE | | | SERVICES, | | | | | | CORE | | + +---------+ + + + | EGFR NON | >60 | >60 mL/min | [facility] | | | -KAYE | | | LABORATORY | | | RICAN | | | SERVICES, | | | | | | CORE | | + +---------+ + + + | SODIUM, | 148 (H) | 136 - 145 | [facility] | | | PLASMA | | mmol/L | LABORATORY | | | (LAB) | | | SERVICES, | | | | | | CORE | | + +---------+ + + + | POTASSIUM, | 3.4 | 3.4 - 5.0 | [facility] | | | PLASMA | | mmol/L | LABORATORY | | | (LAB) | | | SERVICES, | | | | | | CORE | | + +---------+ + + + | CHLORIDE, | 115 (H) | 97 - 108 mmol/L | [facility] | | | PLASMA | | | LABORATORY | | | (LAB) | | | SERVICES, | | | | | | CORE | | + +---------+ + + + | TOTAL CO2, | 19 (L) | 21 - 32 mmol/L | [facility] | | | PLASMA | | | LABORATORY | | | (LAB) | | | SERVICES, | | | | | | CORE | | + +---------+ + + + | CALCIUM, | 7.0 (L) | 8.6 - 10.2 | [facility] | | | PLASMA | | mg/dL | LABORATORY | | | (LAB) | | | SERVICES, | | | | | | CORE | | + +---------+ + + + | ANION GAP | 14 (H) | 4 - 11 mmol/L | [facility] | | | | | | LABORATORY | | | | | | SERVICES, | | | | | | CORE | | + +---------+ + + + | POTASSIUM | No Hemo | | [facility] | | | CMNT | | | LABORATORY | | | | | | SERVICES, | | | | | | CORE | | + +---------+ + + + + + | Specimen | + + | Blood - Blood | | (substance) | + + + + + | Narrative | Performed At | + + + | GFR is estimated using the MDRD equation recommended by the | [facility] | | National Kidney Disease Education Program. Estimated GFR | LABORATORY | | Interpretive Information: <60 mL/min/1.73 sq m | SERVICES, CORE | | Chronic Kidney Disease <15 mL/min/1.73 sq m | | | Kidney Failure Estimated GFR greater that 60 mL/min/1.73 sq m is of | | | limited clinical value. The MDRD equation is not valid in the | | | following situations: - Patients under 18 years of age - Severe | | | malnutrition or obesity - Vegetarian diet - Rapidly changing kidney | | | function - Amputees, paraplegics, or other muscle-wasting diseses | | + + + + + + + + | Performing | Address | City/State/Zipcode | Phone Number | | Organization | | | | + + + + + | [facility] | [address] | [place] [address] | | | SERVICES, CORE | [address] | | | + + + + + COAGULOPATHY PANEL (INR,APTT,FIBRINOGEN) (08/31/2017 4:50 PM PDT) + + + + + + | Component | Value | Ref Range | Performed | Pathologist | | | | | At | Signature | + + + + + + | INR | 1.48 (H) | 0.90 - 1.20 INR | [facility] | | | | | | LABORATORY | | | | | | SERVICES, | | | | | | CORE | | + + + + + + | APTT | 34.8 | 26.0 - 36.0 | [facility] | | | | | seconds | LABORATORY | | | | | | SERVICES, | | | | | | CORE | | + + + + + + | FIBRINOGEN | 138 (L) | 200 - 450 mg/dL | [facility] | | | LEVEL | | | LABORATORY | | | | | | SERVICES, | | | | | | CORE | | + + + + + + + + | Specimen | + + | Blood - Blood | | (substance) | + + + + + | Narrative | Performed At | + + + | INR Therapeutic ranges for full anticoagulation: INR for | [facility] | | Venous Thromboembolism (2.0 - 3.0) INR INR for | LABORATORY | | most patients with mech. valves (2.5 - 3.5) INR APTT | SERVICES, CORE | | Therapeutic Range: (75 - 120) sec | | | Heparin levels of 0.35 - 0.7 U/mL | | + + + + + + + + | Performing | Address | City/State/Zipcode | Phone Number | | Organization | | | | + + + + + | [facility] | [address] | [place] [address] | | | SERVICES, CORE | [address] | | | + + + + + ETHANOL (ALCOHOL), BLOOD (08/31/2017 4:50 PM PDT) + +--------+ + + + | Component | Value | Ref Range | Performed | Pathologist | | | | | At | Signature | + +--------+ + + + | ETHANOL | 41 (H) | <10 mg/dL | [facility] | | | (ALCOHOL) | | | LABORATORY | | | | | | SERVICES, | | | | | | CORE | | + +--------+ + + + + + | Specimen | + + | Blood - Blood | | (substance) | + + + + + + + | Performing | Address | City/State/Zipcode | Phone Number | | Organization | | | | + + + + + | [facility] | [address] | [place] [address] | | | SERVICES, CORE | [address] | | | + + + + + PHOSPHORUS, PLASMA (08/31/2017 4:50 PM PDT) + +-------+ + + + | Component | Value | Ref Range | Performed | Pathologist | | | | | At | Signature | + +-------+ + + + | PHOSPHORUS, | 4.0 | 2.4 - 4.7 mg/dL | [facility] | | | PLASMA | | | LABORATORY | | | (LAB) | | | SERVICES, | | | | | | CORE | | + +-------+ + + + + + | Specimen | + + | Blood - Blood | | (substance) | + + + + + + + | Performing | Address | City/State/Zipcode | Phone Number | | Organization | | | | + + + + + | [facility] | [address] | [place] [address] | | | SERVICES, CORE | [address] | | | + + + + + MAGNESIUM, PLASMA (08/31/2017 4:50 PM PDT) + +---------+ + + + | Component | Value | Ref Range | Performed | Pathologist | | | | | At | Signature | + +---------+ + + + | MAGNESIUM,P | 1.5 (L) | 1.6 - 2.6 mg/dL | [facility] | | | LASMA | | | LABORATORY | | | | | | SERVICES, | | | | | | CORE | | + +---------+ + + + + + | Specimen | + + | Blood - Blood | | (substance) | + + + + + | Narrative | Performed At | + + + | Reference range change effective 12/11/16. | [facility] | | | LABORATORY | | | SERVICES, CORE | + + + + + + + + | Performing | Address | City/State/Zipcode | Phone Number | | Organization | | | | + + + + + | [facility] | [address] | [place] [address] | | | SERVICES, CORE | [address] | | | + + + + + documented in this encounter Visit Diagnoses + + | Diagnosis | + + | Trauma Injury, other and unspecified, unspecified site | + + documented in this encounter Administered Medications + +--------+ + +------+------+ | Medication Order | MAR | Action | Dose | Rate | Site | | | Action | Date | | | | + +--------+ + +------+------+ | acetaminophen (TYLENOL) oral | Given | 12/07/19 | 1,000 mg | | | | suspension 1,000 mg 1,000 mg, | | 18 8:12 | | | | | feeding tube, THREE TIMES DAILY, | | AM PDT | | | | | First dose on Sat10/29/17 at 1030, | | | | | | | Until Discontinued | | | | | | + +--------+ + +------+------+ +-------+ + +---+---+ | Given | 12/06/19 | 1,000 mg | | | | | 18 10:24 | | | | | | PM PDT | | | | +-------+ + +---+---+ | Given | 12/06/19 | 1,000 mg | | | | | 18 5:41 | | | | | | PM PDT | | | | +-------+ + +---+---+ + +---+ | | | + +---+ | bacitracin-polymyxin B | | | (POLYSPORIN) 500-10,000 unit/gram | | | packet 1 packet 1 packet (1 g), | | | topical, NEEDED, Starting Sat | | | 08/31/17 at 1846, Until Fri | | | 12/06/17 at 2051, Nurse Initiated | | | Order - affected skin areas with | | | superficial lacerations/abrasions | | + +---+ | | | + +---+ + +-------+ +-------+---+---+ | bisacodyl (DULCOLAX) | Given | 11/24/19 | 10 mg | | | | suppository 10 mg 10 mg, rectal, | | 18 8:21 | | | | | DAILY NEEDED, Starting Sat | | PM PDT | | | | | 11/02/17 at 1144, Until 12/06/17 | | | | | | | at 2051, 2nd line for no BM in | | | | | | | past 2 days or if no response to | | | | | | | MIRALAX or if patient unable to | | | | | | | tolerate oral | | | | | | + +-------+ +-------+---+---+ + +---+ | | | + +---+ | dextrose 50 % in water IV 25 mL | | | 25 mL, intravenous, NEEDED, | | | Starting Sho 09/26/17 at 0029, | | | Until Sat12/06/17 at 2052, CBG | | | less than 70 mg/dL if patient | | | unable to take PO, per Adult | | | Hypoglycemia Protocol | | + +---+ | | | + +---+ + +-------+ +-------+---+---+ | docusate sodium liquid 50 mg | Given | 12/07/19 | 50 mg | | | | 50 mg, feeding tube, TWICE DAILY, | | 18 8:12 | | | | | First dose on Sat11/10/17 at | | AM PDT | | | | | 2100, Until Discontinued | | | | | | + +-------+ +-------+---+---+ +-------+ +-------+---+---+ | Given | 12/06/19 | 50 mg | | | | | 18 10:24 | | | | | | PM PDT | | | | +-------+ +-------+---+---+ | Given | 12/06/19 | 50 mg | | | | | 18 8:25 | | | | | | AM PDT | | | | +-------+ +-------+---+---+ +---+---+ | | | +---+---+ + +-------+ +-------+---+---------+ | enoxaparin (LOVENOX) injection | Given | 12/06/19 | 40 mg | | Abdomen | | 40 mg 40 mg, subcutaneous, EVERY | | 18 10:24 | | | | | EVENING, First dose on Sho | | PM PDT | | | | | 11/07/17 at 2100, Until | | | | | | | Discontinued | | | | | | + +-------+ +-------+---+---------+ +-------+ +-------+---+---------+ | Given | 12/05/19 | 40 mg | | Abdomen | | | 18 10:01 | | | | | | PM PDT | | | | +-------+ +-------+---+---------+ | Given | 12/04/19 | 40 mg | | Abdomen | | | 18 10:25 | | | | | | PM PDT | | | | +-------+ +-------+---+---------+ + +---+ | | | + +---+ | glucagon (GLUCAGEN) injection 1 | | | mg 1 mg, intramuscular, | | | NEEDED, Starting Sho 09/26/17 at | | | 0029, Until Sat12/06/17 at 2052, | | | CBG less than 70 mg/dL per Adult | | | Hypoglycemia Protocol | | + +---+ | | | + +---+ + +-------+ +------+---+---+ | haloperidol (HALDOL) liquid 5 | Given | 12/07/19 | 5 mg | | | | mg 5 mg, feeding tube, TWICE | | 18 10:19 | | | | | DAILY, First dose on 12/01/17 | | AM PDT | | | | | at 1030, Until Discontinued | | | | | | + +-------+ +------+---+---+ +-------+ +------+---+---+ | Given | 12/06/19 | 5 mg | | | | | 18 10:25 | | | | | | PM PDT | | | | +-------+ +------+---+---+ | Given | 12/06/19 | 5 mg | | | | | 18 8:38 | | | | | | AM PDT | | | | +-------+ +------+---+---+ +---+---+ | | | +---+---+ + +-------+ +------+---+---+ | haloperidol (HALDOL) liquid 5 | Given | 12/07/19 | 5 mg | | | | mg 5 mg, feeding tube, EVERY 6 | | 18 2:10 | | | | | HOURS NEEDED, Starting Mon | | AM PDT | | | | | 12/02/17 at 1507, Until Sat12/06/17 | | | | | | | at 2052, agitation | | | | | | + +-------+ +------+---+---+ +-------+ +------+---+---+ | Given | 12/05/19 | 5 mg | | | | | 18 8:24 | | | | | | PM PDT | | | | +-------+ +------+---+---+ | Given | 12/05/19 | 5 mg | | | | | 18 2:21 | | | | | | PM PDT | | | | +-------+ +------+---+---+ + +---+ | | | + +---+ | haloperidol lactate (HALDOL) | | | injection 5 mg 5 mg, | | | intramuscular, EVERY 6 HOURS | | | NEEDED, Starting Sat12/03/17 at | | | 1128, Until Sat12/06/17 at 2051, | | | aggression, non-redirectable | | | combativeness | | + +---+ | | | + +---+ + +-------+ +--------+---+---+ | levETIRAcetam (KEPPRA) liquid | Given | 12/07/19 | 500 mg | | | | 500 mg 500 mg, feeding tube, | | 18 8:12 | | | | | TWICE DAILY, First dose on Mon | | AM PDT | | | | | 10/28/17 at 2100, Until | | | | | | | Discontinued | | | | | | + +-------+ +--------+---+---+ +-------+ +--------+---+---+ | Given | 12/06/19 | 500 mg | | | | | 18 10:24 | | | | | | PM PDT | | | | +-------+ +--------+---+---+ | Given | 12/06/19 | 500 mg | | | | | 18 8:25 | | | | | | AM PDT | | | | +-------+ +--------+---+---+ +---+---+ | | | +---+---+ + + + +---------+---+ + | lidocaine (LIDODERM) 5 % patch | Applied | 12/02/19 | 1 patch | | Midline | | 1 patch 1 patch, transdermal, | Patch | 18 8:59 | | | Back | | EVERY 24 HOURS, First dose on Fri | | PM PDT | | | | | 09/27/17 at 1115, Until | | | | | | | Discontinued | | | | | | + + + +---------+---+ + + + +---------+---+ + | Applied Patch | 11/30/19 | 1 patch | | Left | | | 18 9:14 | | | Shoulder | | | PM PDT | | | | + + +---------+---+ + | Applied Patch | 11/29/19 | 1 patch | | Neck | | | 18 8:38 | | | | | | PM PDT | | | | + + +---------+---+ + +---+---+ | | | +---+---+ + +-------+ +-------+---+---+ | melatonin tablet 10 mg 10 mg, | Given | 12/06/19 | 10 mg | | | | feeding tube, EVERY EVENING, | | 18 10:24 | | | | | First dose (after last | | PM PDT | | | | | modification) on Sat11/27/17 at | | | | | | | 2100, Until Discontinued | | | | | | + +-------+ +-------+---+---+ +-------+ +-------+---+---+ | Given | 12/05/19 | 10 mg | | | | | 18 10:00 | | | | | | PM PDT | | | | +-------+ +-------+---+---+ | Given | 12/04/19 | 10 mg | | | | | 18 10:09 | | | | | | PM PDT | | | | +-------+ +-------+---+---+ + +---+ | | | + +---+ | methyl salicylate-menthol | | | (BENGAY) ointment topical, EVERY | | | 2 HOURS NEEDED, Starting Fri | | | 11/22/17 at 0828, Until Fri | | | 12/06/17 at 2051, mild pain | | + +---+ | | | + +---+ | nystatin (MYCOSTATIN) cream | | | topical, FOUR TIMES DAILY | | | NEEDED, Starting 08/31/17 at | | | 1846, Until Sat12/06/17 at 2051, | | | Nurse initiated order - for | | | affected skin areas with | | | yeastlike appearance | | + +---+ | | | + +---+ + +-------+ +------+---+---+ | ondansetron (ZOFRAN) injection | Given | 11/07/19 | 4 mg | | | | 4 mg 4 mg, intravenous, EVERY 12 | | 18 4:08 | | | | | HOURS NEEDED, Starting Sat | | PM PDT | | | | | 08/31/17 at 1849, Until Sat12/06/17 | | | | | | | at 2051, nausea/vomiting if | | | | | | | unable to take oral ondansetron | | | | | | + +-------+ +------+---+---+ +-------+ +------+---+---+ | Given | 10/28/19 | 4 mg | | | | | 18 5:06 | | | | | | PM PDT | | | | +-------+ +------+---+---+ | Given | 10/23/19 | 4 mg | | | | | 18 6:40 | | | | | | PM PDT | | | | +-------+ +------+---+---+ +---+---+ | | | +---+---+ + +-------+ +------+---+---+ | ondansetron (ZOFRAN) tablet 4 | Given | 12/07/19 | 4 mg | | | | mg 4 mg, feeding tube, EVERY 12 | | 18 2:30 | | | | | HOURS NEEDED, Starting Tue | | AM PDT | | | | | 10/29/17 at 0742, Until 12/06/17 | | | | | | | at 2052, nausea/vomiting, first | | | | | | | line | | | | | | + +-------+ +------+---+---+ +-------+ +------+---+---+ | Given | 12/05/19 | 4 mg | | | | | 18 3:00 | | | | | | AM PDT | | | | +-------+ +------+---+---+ | Given | 11/27/19 | 4 mg | | | | | 18 10:05 | | | | | | AM PDT | | | | +-------+ +------+---+---+ +---+---+ | | | +---+---+ + +-------+ +------+---+---+ | oxyCODONE (immediate release) | Given | 12/07/19 | 5 mg | | | | (ROXICODONE) liquid 5 mg 5 mg, | | 18 12:26 | | | | | feeding tube, EVERY 3 HOURS | | PM PDT | | | | | NEEDED, Starting Tu10/29/17 at | | | | | | | 1230, Until Sat12/06/17 at 2052, | | | | | | | moderate pain | | | | | | + +-------+ +------+---+---+ +-------+ +------+---+---+ | Given | 12/07/19 | 5 mg | | | | | 18 6:50 | | | | | | AM PDT | | | | +-------+ +------+---+---+ | Given | 12/07/19 | 5 mg | | | | | 18 3:32 | | | | | | AM PDT | | | | +-------+ +------+---+---+ +---+---+ | | | +---+---+ + +-------+ +------+---+---+ | polyethylene glycol (MIRALAX) | Given | 11/24/19 | 34 g | | | | packet 34 g 34 g, feeding tube, | | 18 8:29 | | | | | THREE TIMES DAILY NEEDED, | | AM PDT | | | | | Starting 11/10/17 at 1004, | | | | | | | Until 12/06/17 at 2052, 1st | | | | | | | line - for no BM for 2 days | | | | | | + +-------+ +------+---+---+ +-------+ +------+---+---+ | Given | 11/23/19 | 34 g | | | | | 18 9:01 | | | | | | AM PDT | | | | +-------+ +------+---+---+ | Given | 11/13/19 | 34 g | | | | | 18 9:27 | | | | | | PM PDT | | | | +-------+ +------+---+---+ +---+---+ | | | +---+---+ + + + +---+---+---+ | probiotic kefir (ROBERT'S KEFIR) | Given - | 12/07/19 | | | | | feeding tube, THREE TIMES | Food | 18 8:14 | | | | | DAILY, First dose (after last | | AM PDT | | | | | modification) on [facility] 11/07/17 at | | | | | | | 1600, Until Discontinued | | | | | | + + + +---+---+---+ + + +---+---+---+ | Given - Food | 12/06/19 | | | | | | 18 10:25 | | | | | | PM PDT | | | | + + +---+---+---+ | Given - Food | 12/06/19 | | | | | | 18 5:41 | | | | | | PM PDT | | | | + + +---+---+---+ +---+---+ | | | +---+---+ + +-------+ +------+---+---+ | prochlorperazine (COMPAZINE) | Given | 11/08/19 | 5 mg | | | | injection 5 mg 5 mg, | | 18 8:58 | | | | | intravenous, EVERY 6 HOURS | | PM PDT | | | | | NEEDED, Starting Sat10/29/17 at | | | | | | | 0743, Until Sat12/06/17 at 2052, | | | | | | | n/v, if unable to take oral form | | | | | | | of medication | | | | | | + +-------+ +------+---+---+ +-------+ +------+---+---+ | Given | 11/07/19 | 5 mg | | | | | 18 12:20 | | | | | | PM PDT | | | | +-------+ +------+---+---+ | Given | 11/02/19 | 5 mg | | | | | 18 10:39 | | | | | | AM PDT | | | | +-------+ +------+---+---+ +---+---+ | | | +---+---+ + +-------+ +------+---+---+ | prochlorperazine (COMPAZINE) | Given | 11/24/19 | 5 mg | | | | tablet 5 mg 5 mg, feeding tube, | | 18 6:07 | | | | | EVERY 6 HOURS NEEDED, Starting | | PM PDT | | | | | 10/29/17 at 0742, Until Fri | | | | | | | 12/06/17 at 205, nausea/vomiting, | | | | | | | second line | | | | | | + +-------+ +------+---+---+ +-------+ +------+---+---+ | Given | 11/12/19 | 5 mg | | | | | 18 5:36 | | | | | | AM PDT | | | | +-------+ +------+---+---+ | Given | 11/11/19 | 5 mg | | | | | 18 7:47 | | | | | | AM PDT | | | | +-------+ +------+---+---+ +---+---+ | | | +---+---+ + +-------+ +--------+---+---+ | senna (SENOKOT) liquid 8.8 mg | Given | 12/07/19 | 8.8 mg | | | | 8.8 mg (5 mL), feeding tube, | | 18 8:12 | | | | | TWICE DAILY, First dose on Sun | | AM PDT | | | | | 11/10/17 at 2100, Until | | | | | | | Discontinued | | | | | | + +-------+ +--------+---+---+ +-------+ +--------+---+---+ | Given | 12/06/19 | 8.8 mg | | | | | 18 10:24 | | | | | | PM PDT | | | | +-------+ +--------+---+---+ | Given | 12/06/19 | 8.8 mg | | | | | 18 8:25 | | | | | | AM PDT | | | | +-------+ +--------+---+---+ +---+---+ | | | +---+---+ + +-------+ +--------+---+---+ | valproate (DEPAKENE) liquid 125 | Given | 12/07/19 | 125 mg | | | | mg 125 mg, feeding tube, TWICE | | 18 8:12 | | | | | DAILY, First dose on Sat12/03/17 | | AM PDT | | | | | at 1415, Until Discontinued | | | | | | + +-------+ +--------+---+---+ +-------+ +--------+---+---+ | Given | 12/06/19 | 125 mg | | | | | 18 10:25 | | | | | | PM PDT | | | | +-------+ +--------+---+---+ | Given | 12/06/19 | 125 mg | | | | | 18 8:25 | | | | | | AM PDT | | | | +-------+ +--------+---+---+ +---+---+ | | | +---+---+ documented in this encounter
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
--- OUTSIDE RECORDS SUMMARY | ~2019-12-20 | XMS | Encounter Summary ---
Demographics + + + | Address | [address] | | | [place] [address] | + + + | Home Phone | | + + + | Preferred Language | Unknown | + + + | Marital Status | Single | + + + | Bahai Affiliation | PEN | + + + | Race | or | + + + | Ethnic Group | Not or | + + + Author + + + | Author | [facility] | + + + | Organization | [facility] [employer] [facility] | + + + | Address | Unknown | + + + | Phone | Unavailable | + + + Support + + +---------+ + | Name | Relationship | Address | Phone | + + +---------+ + | Kaylie Baig | ECON | Unknown | | + + +---------+ + Care Team Providers + +------+ + | Care Propellant Charge Loader Name | Role | Phone | + +------+ + | No Pcp Per Patient | PCP | Unavailable | + +------+ + Encounter Details +--------+ + + + + | Date | Type | Department | Care Team | Description | +--------+ + + + + | 09/01/ | Procedure | [address] Op [id number] | | | | 2018 | Pass | [address] | | | | | | [address] [facility] | | | | | | Hospital Admitting | | | | | | Desk Located on the | | | | | | 9th floor | | | | | | [place], [place] | | | | | | [address] | | | +--------+ + + + [...]
--- OUTSIDE RECORDS SUMMARY | ~2019-12-20 | XMS | Encounter Summary ---
Demographics + + + | Address | [address] | | | [place] [address] | + + + | Home Phone | | + + + | Preferred Language | Unknown | + + + | Marital Status | Single | + + + | Judaism Affiliation | PEN | + + + | Race | or | + + + | Ethnic Group | Not or | + + + Author + + + | Author | [facility] | + + + | Organization | [facility] | + + + | Address | Unknown | + + + | Phone | Unavailable | + + + Support + + +---------+ + | Name | Relationship | Address | Phone | + + +---------+ + | Kaylie Baig | ECON | Unknown | | + + +---------+ + Care Team Providers + +------+ + | Care Noteman Name | Role | Phone | + [...] | | 2018 | anned | [id number] | | | | | | [address] | | | | | | Mailcode: [id number] | | | | | | [facility] | | | | | | [place], [place] | | | | | | [address] | | | | | | [phone] | | | +--------+ + + + [...]
--- OUTSIDE RECORDS SUMMARY | ~2019-12-20 | XMS | Clinical Summary ---
Demographics + + + | Address | [address] | | | [place] [address] | + + + | Home Phone | | + + + | Preferred Language | Unknown | + + + | Marital Status | Single | + + + | Mormon Affiliation | PEN | + + + [...] Providers + +------+ + | Care Supervisor Costuming Name | Role | Phone | + +------+ + | No Pcp Per Patient | PCP | Unavailable | + +------+ + Source Comments SELENA is fully live on both [facility] Ambulatory and [facility] InPatient.[facility] Allergies No Known Allergies Medications + + [...] | | + + +-------+ + | Pneumococcal | | | | | vaccination (1 of 1 | 9 | | | | - PPSV23) | | | | + + +-------+ + | Influenza (Flu) | | | | | vaccination (#1) | 0 | | | + + +-------+ + Implants + +------+--------+ +--------+--------+--------+ | Implanted [...] Qty: | | Head | | | 2025 | .156S | | 1 on 11/05/2017 by Dayami, | | | | | | / | | MD Magdiel at [facility] | | | | | | /[id number] | | REV LOC | | | | | | 43 | + +------+--------+ +--------+--------+--------+ + + | Description:151mm x 125mm | | FT/Right-Ster | + + + +---+--------+ +---+---+--------+ | Screw Bone 4mm 1.55mm 2.55mm | | Right: | [employer] [place] | | | 04.503 | | Matrixneuro | | Head | | | | .104.0 | | Craniomaxillofacial Titanium | | | | | | 5 / / | | Self Drill Nonsterile - | | | | | | | | [id number]: Qty: 11 | | | | | | | | on 11/05/2017 by Dayami, | | | | | | | | MD Magdiel at [facility] | | | | | | | [...] | | | | | | | [id number]: Qty: | | | | | | | | 1Explanted: Qty: 1 on | | | | | | | | 11/05/2017 at [facility] | | | | | | | [...] | | | + +--------+ +--------+-------+---------+--------+ | BALANCE WHEEL MOTION INSPECTOR MEDICAID | BALANCE WHEEL MOTION INSPECTOR | [id number] | 08/28/19 | | | Medica | | | EASTER | | 17-Pre | | | id | | | [place] | | sent | | | | + +--------+ +--------+-------+---------+--------+ | AUTO INS OTHER | AUTO | UNK | 09/01/19 | | | Auto | [...] Person | Self | [birth year] | | [address] | | | al/Fam | | 1951 | [phone] | [place] [address] | | | taras | | | 6 (Home) | | + +--------+ +--------+ + + | [place] [employer] | Third | Self | [birth year] | | [address] | | | Libertarian | | 1951 | [phone] | [place] [address] | | | Liabil | | | [...]
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
--- OUTSIDE RECORDS SUMMARY | ~2019-12-20 | XMS | Encounter Summary ---
Demographics + + + | Address | [address] | | | [place] [address] | + + + | Home Phone [...] + + | Author | [facility] | + + + | Organization | [facility] [facility] | + + + | Address | Unknown | + + + | Phone | Unavailable | + + + Support + + +---------+ + | Name | Relationship | Address | Phone | + + +---------+ + | Kaylie Baig | ECON | Unknown | | + + +---------+ + Care Team Providers + +------+ + | Care Manager Long Term Care Name | Role | Phone | + [...] + + + + | 09/15/ | Clinical Staff Pharmacist | Neurosurgery at | Dallin Bourgeois, | Other closed | | 2018 | | [facility] [address] | MD [address] | nondisplaced | | | | [facility] | [address] | fracture of seventh | | | | Health and Healing, | [place], [place] | cervical vertebra | | | | Building , 8th | [address] | with routine | | | | floor [place], [place] | [phone] | healing, subsequent | | | | [address] | | encounter (Primary | | | | [phone] | | Dx) | +--------+ + + + + Social [...]
--- OUTSIDE RECORDS SUMMARY | ~2019-12-20 | XMS | Encounter Summary ---
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 [...] + + | [place] [facility] | [address] | [place] [address] | | | SERVICES, [facility] | [address] | | | + + + + + X-RAY ABD TUBE OR CATH EVAL W CONTRAST (12/03/2017 12:55 AM PDT) + + | Specimen | + + | | + + + + + | Narrative | Performed At | + + + | EXAM: ABD TUBE OR CATH EVAL W CONTRAST HISTORY: eval G tube | [facility] | | replacement. COMPARISON: CT chest abdomen [...] Note | + + | Service Account, Tengahant Res In Interface - 12/03/2017 10:30 AM [...] + + + | ANA LILIA-HALIMA | 491 | ms | [facility] [...] DEPT OF | [address] | [place], [place] | | | CARDIOLOGY | [address] | [address] | | + + + + + [...] | + + + + + | [facility] | [address] | [place] [address] | | | NATALEE WORTHINGTON | VILMA [...] + | [facility] - | [address] | [place] [address] | | | [place] | | | [...] [facility] | [address] | [place] [address] | | | NATALEE WORTHINGTON | VILMA [...] | + + + + + | [employer] [facility] | [address] | [place] [address] | | | SERVICES, CORE [...] [place] [facility] | [address] | [place] [address] | | | SERVICES, CORE | [address] [...] | | | LABORATORY | | | [facility] | | | SERVICES, | | | [...] the MDRD equation recommended by the | [facility] | | National Kidney Disease Education Program. [...] | + + + + + | [facility] | [address] | [place] [address] | | | NATALEE WORTHINGTON | VILMA [...] | + + + + + | [facility] | [address] | [place] [address] | | | NATALEE WORTHINGTON | VILMA [...] + + + | ANA LILIA-HALIMA | 428 | ms | [facility] [...] DEPT OF | [address] | [place], [place] | | | CARDIOLOGY | [address] | [address] | | + + + + + [...] + + + + | QTC-BAZETT | 414 | ms | [facility] [...] OF | [address] | [place], [place] | | | CARDIOLOGY | [address] | [address] | | + + + + + [...] | | | LABORATORY | | | [facility] | | | SERVICES, | | | [...] | + + + + + | [facility] | [address] | [place] [address] | | | ELIN, CORE | VILMA [...] | + + + + + | [facility] | [address] | [place] [address] | | | NATALEE WORTHINGTON | VILMA [...] DEPT OF | [address] | [place], [place] | | | CARDIOLOGY | [address] | [address] | | + + + + + [...] Note | + + | Service Account, [employer] Res In Interface - 11/26/2017 12:36 PM [...] + | [facility] - | [address] | [place] [address] | | | [place] | | | [...] | + + + + + | [facility] | [address] | [place] [address] | | | SERVICES, CORE | VILMA [...] | + + + + + | [facility] | [address] | [place] [address] | | | SERVICES, CORE | PARK [...] | + + + + + | [facility] | [address] | [place] [address] | | | SERVICES, CORE | P[address] [...] [facility] | [address] | [place] [address] | | | SERVICES, CORE | PARK [...] | | | LABORATORY | | | [facility] | | | SERVICES, | | | [...] | + + + + + | [facility] | [address] | [place] [address] | | | SERVICES, CORE | VILMA [...] | + + + + + | [facility] | [address] | [place] [address] | | | SERVICES, CORE | PARK [...] + + + + | QTC-SAURABHTT | 423 | ms | [facility] DE[facility] [...] + + | [facility] | [address] | [place], [place] | | | CARDIOLOGY | [address] | [address] | | + + + + + [...] OF | [address] | [place], [place] | | | CARDIOLOGY | [address] | [address] | | + + + + + [...] DEPT OF | [address] | [place], [place] | | | CARDIOLOGY | [address] | [address] | | + + + + + [...] DEPT OF | [address] | [place], [place] | | | CARDIOLOGY | [address] | [address] | | + + + + + [...] | | | LABORATORY | | | [facility] | | | SERVICES, | | | [...] | + + + + + | [facility] | [address] | [place] [address] | | | SERVICES, CORE | VILMA [...] | + + + + + | [facility] | [address] | [place] [address] | | | SERVICES, CORE | VILMA [...] [place] [facility] | | | | | [facility] | | | | + [...] DEPT OF | [address] | [place], [place] | | | CARDIOLOGY | [address] | [address] | | + + + + + [...] + + | [facility] | [address] | [place], [place] | | | CARDIOLOGY | [address] | [address] | | + + + + + [...] | + + + + + | [facility] | [address] | [place] [address] | | | SERVICES, CORE | VILMA [...] | + + + + + | [facility] | [address] | [place] [address] | | | SERVICES, CORE | PARK [...] + | [facility] - | [address] | [place] [address] | | | [place] | | | [...] | + + + + + | [facility] | [address] | [place] [address] | | | SERVICES, CORE | PARK [...] [facility] | [address] | [place] [address] | | | SERVICES, CORE | PARK [...] | | | LABORATORY | | | [facility] | | | SERVICES, | | | [...] the MDRD equation recommended by the | [facility] | | National Kidney Disease Education [...] | + + + + + | [facility] | [address] | [place] [address] | | | SERVICES, CORE | VILMA [...] 2.6 mg/dL | OHDANIELLE | | | LISA | | | [...] [facility] | [address] | [place] [address] | | | ELIN, NATALEE | VILMA [...] GEET OF | [address] | [place], [place] | | | CARDIOLOGY | [address] | [address] | | + + + + + [...] + + + + | QTC-BABRAYDONTT | 449 | ms | [facility] DE[facility] [...] DEPT | | | IMPRESSION | by: DEWLAND,AJAY | | OF | | | | [...] + | [facility] | [address] | [place], [place] | | | CARDIOLOGY | [address] | [address] | | + + + + + [...] | + + + + + | [employer] | [address] | [place] [address] | | | SERVICES, CORE | PARK [...] + + + + | QTC-SAURABHTT | 411 | ms | [facility] [...] DEPT OF | [address] | [place], [place] | | | CARDIOLOGY | [address] | [address] | | + + + + + [...] | | | LABORATORY | | | [facility] | | | SERVICES, | | | [...] | + + + + + | [facility] | [address] | [place] [address] | | | SERVICES, CORE | PARK [...] + + | [facility] | [address] | [place] [address] | | | SERVICES, CORE | VILMA [...] + + + + | QTC-SAURABHTT | 427 | ms | [facility] [...] DEPT OF | [address] | [place], [place] | | | CARDIOLOGY | [address] | [address] | | + + + + + [...] [facility] | [address] | [place] [address] | | | SERVICES, CORE | PARK [...] | | | LABORATORY | | | [facility] | | | SERVICES, | | | [...] the MDRD equation recommended by the | [facility] | | National Kidney Disease Education [...] | + + + + + | [facility] | [address] | [place] [address] | | | ELIN, NATALEE | VILMA [...] + | [facility] - | [address] | [place] [address] | | | [place] | | | | + + + [...] | + + | Service Account, Kostas AthleteNetwork In Interface - 11/12/2017 1:46 PM PDT [...] + | [facility] | [address] [facility] | [place], [place] | | | CARDIOLOGY | [address] | [address] | | + + + + + [...] [facility] | [address] | [place] [address] | | | NATALEE WORTHINGTON | VILMA [...] % SPEP | 14.9 | % | HELAY - | | | | | | [...] | + + + + + | [facility] - | [address] | [place] [address] | | | [place] | | | [...] GEET OF | [address] | [place], [place] | | | CARDIOLOGY | [address] | [address] | | + + + + + [...] | + + + + + | [facility] | [address] [facility] | [place] [address] | | | SERVICES, CORE | [address] | | | + + + + + PREALBUMIN (11/11/2017 9:06 AM PDT) + +-------+ + + + | Component | Value | Ref Range | Performed | Pathologist | | | | | At | Signature | + +-------+ + + + | PREALBUMIN | 25.4 | 17.0 - 42.0 | [facility] - | | | | | mg/dL [...] + | [facility] - | [address] | [place] [address] | | | [place] | | | [...] | + + + + + | [facility] | [address] | [place] [address] | | | SERVICESNATALEE | [address] [...] | + + + + + | [facility] | [address] [facility] | [place] [address] | | | SERVICES, CORE | VILMA [...] | + + + + + | [facility] | [address] | [place] [address] | | | SERVICES, CORE | VILMA [...] | | | LABORATORY | | | [facility] | | | SERVICES, | | | [...] | + + + + + | [facility] | [address] | [place] [address] | | | NATALEE WORTHINGTON | VILMA [...] | + + + + + | [facility] | [address] | [place] [address] | | | SERVICES, CORE | [address] [...] | + + + + + | [facility] | [address] | [place] [address] | | | SERVICES, CORE | [address] [...] | | | LABORATORY | | | [facility] | | | SERVICES, | | | [...] the MDRD equation recommended by the | [facility] | | National Kidney Disease Education Program. [...] [facility] | [address] | [place] [address] | | | SERVICES, CORE | VILMA [...] + + + + | QTC-SAURABHTT | 447 | ms | [facility] [...] DEPT OF | [address] | [place], [place] | | | CARDIOLOGY | [address] | [address] | | + + + + + [...] | + + + + + | [facility] | [address] | [place] [address] | | | SERVICES, CORE | [address] [...] | | | LABORATORY | | | [facility]IAN | | | SERVICES, | | | [...] | + + + + + | [facility] | [address] | [place] [address] | | | SERVICES, CORE | [address] | | | + + + + + MAGNESIUM, PLASMA (11/09/2017 4:18 AM PDT) + +-------+ + + + | Component | Value | Ref Range | Performed | Pathologist | | | | | At | Signature | + +-------+ + + + | MAGNESIUM,P | 2.0 | 1.6 - 2.6 mg/dL | [facility] | | | LASMA | | | [...] [facility] | [address] | [place] [address] | | | SERVICES, CORE | [address] [...] | | | LABORATORY | | | [facility]IAN | | | SERVICES, | | | [...] + + | Performing | Address | City/State/[facility] | Phone Number | | Organization | | | | + + + + + | [facility] | [address] | [place] [address] | | | ELIN, NATALEE | VILMA [...] necessary, edited the report. I agree with [facility] report as now presented. | | | [...] [facility] | [address] | [place] [address] | | | NATALEE WORTHINGTON | VILMA [...] | | | LABORATORY | | | [facility]IAN | | | SERVICES, | | | [...] | + + + + + | [facility] | [address] | [place] [address] | | | SERVICES, CORE | VILMA [...] [facility] OF | [address] | [place], [place] | | | CARDIOLOGY | [address] | [address] | | + + + + + [...] + + + + | QTC-BABRAYDONTT | 495 | ms | [facility] [...] | + + + + + | [facility] | [address] | [place], [place] | | | CARDIOLOGY | [address] | [address] | | + + + + + [...] | | | LABORATORY | | | [facility]IAN | | | SERVICES, | | | [...] | + + + + + | [facility] | [address] | [place] [address] | | | SERVICES, CORE | [address] [...] LABORATORY | [address] | [place] [address] | | | SERVICES, CORE | VILMA [...] + + + + | PRODUCT | [id number] | | [facility] | | | UNIT [...] + + + + | EXPIRATION | [id number] | | [facility] | | | DATE [...] + + + + | BLOOD | [id number] | | [facility] | | | PRODUCT [...] | + + + + + | [facility] | [address] | [place] [address] | | | SERVICES, | [address] [...] + + + + | PRODUCT | [id number] | | [facility] | | | UNIT [...] + + + + | EXPIRATION | [id number] | | [facility] | | | DATE [...] + + + + | BLOOD | [id number] | | [facility] | | | PRODUCT [...] | + + + + + | [facility] | [address] | [place] [address] | | | SERVICES, | [address] [...] [facility] | [address] | [place] [address] | | | NATALEE WORTHINGTON | VILMA [...] | Reference range change effective 12/11/16. | [facility] | | | LABORATORY | | | NATALEE WORTHINGTON | + + + + + + + + | Performing | Address | City/State/Zipcode | Phone Number | | Organization | | | | + + + + + | [facility] | [address] | [place] [address] | | | NATALEE WORTHINGTON | [address] [...] | | | LABORATORY | | | [facility] | | | SERVICES, | | | [...] | + + + + + | [facility] | [address] | [place] [address] | | | SERVICES, CORE | [address] | | | + + + + + OPERATION RECORD (11/06/2017 12:27 AM PDT) + + | Procedure Note | + + | Magdiel Stock MD - 11/06/2017 12:27 AM PDT Date of Service: 11/05/2017 Attending | | Surgeon: Magdiel Stock MD Poultry Picker(s): Rg Aiken MD | | Preoperative Diagnoses: [...] head was placed in a horseshoe head screen worker with his C-collar still | | attached [...] the incision down to the cranium. Once akutan | | skull was reached circumferentially around the prior incision, a #1 [place] was used | | to subperiosteally dissect [...] note for this encounter.Sonal Nunez, | | [facility] [id number] [place], [place] | | [id number] Orina, MDJB/MODLDD: 11/05/2017 20:38:01DT: 11/06/2017 | | 00:27:33Job #: [id number] | |HATTIE/DUC | | | | | | /[id number] | + + CT HEAD WO CONTRAST [...] Note | + + | Service Account, RadiAdayana Res In Interface - 11/05/2017 8:20 PM [...] Surgeon: Magdiel | | | MD Dayami Poultry Picker: Rg Aiken MD Pre-op Diagnosis: | | [...] PGY-4 Neurological Surgery Pager | | | [phone] | | + + + CAPILLARY BLOOD GLUCOSE (NO CHG), POC (11/05/2017 7:11 PM PDT) + +---------+ + + + | Component | Value | Ref Range | Performed | Pathologist | | | | | At | Signature | + +---------+ + + + | BLOOD | 129 (H) | 70 - 99 mg/dL | [facility] - | | | GLUCOSE, | [...] [facility] | [address] | [place], [place] | | | [facility]IA GENAO OF CARE | [facility] | [address] | | | TESTS | | | [...] [facility] | [address] | [place], [place] | | | GLORIA GENAO OF [facility] | [address] | [address] | | | TESTS | | | [...] Note | + + | Service Account, Bambeco In Interface - 11/05/2017 11:31 AM PDT [...] | + + + + + | [facility] | [address] | [place] [address] | | | SERVICES, CORE | VILMA [...] | + + + + + | [facility] | [address] | [place] [address] | | | SERVICES, CORE | [address] [...] | | | LABORATORY | | | [facility] | | | SERVICES, | | | [...] the MDRD equation recommended by the | [facility] | | National Kidney Disease Education [...] [facility] | [address] | [place] [address] | | | SERVICES, CORE | [address] [...] | + + + + + | [facility] | [address] | [place] [address] | | | SERVICES, CORE | [address] [...] + + + + | PRODUCT | [id number] | | [facility] | | | UNIT [...] + + + + | EXPIRATION | [id number] | | [facility] | | | DATE [...] + + + + | BLOOD | [id number] | | [facility] | | | PRODUCT [...] | + + + + + | [facility] | [address] | [place] [address] | | | SERVICES, | [address] [...] + + + + | PRODUCT | [id number] | | [facility] | | | UNIT [...] + + + + | EXPIRATION | [id number] | | [facility] | | | DATE [...] + + + + | BLOOD | [id number] | | [facility] | | | PRODUCT [...] | + + + + + | [facility] | [address] | [place] [address] | | | SERVICES, | [address] [...] [facility] | [address] | [place] [address] | | | SERVICES, CORE | [address] [...] [facility] | [address] | [place] [address] | | | SERVICES, | [address] [...] [facility] | [address] | [place] [address] | | | SERVICES, | [address] [...] | + + + + + | [facility] | [address] | [place] [address] | | | SERVICES, CORE | [address] [...] + + + | ANA LILIA-HALIMA | 442 | ms | [facility] [...] DEPT OF | [address] | [place], [place] | | | CARDIOLOGY | [address] | [address] | | + + + + + [...] [facility] | [address] | [place] [address] | | | SERVICES, CORE | [address] [...] | + + + + + | [facility] | [address] [facility] | [place] [address] | | | NATALEE WORTHINGTON | VILMA [...] + | [facility] - | [address] | [place] [address] | | | [place] | | | [...] [facility] | [address] | [place] [address] | | | NATALEE WORTHINGTON | VILMA [...] | + + + + + | [facility] | [address] [facility] [address] | [place] [address] | | | SERVICES, CORE | [address] [...] | | | LABORATORY | | | [facility] | | | SERVICES, | | | [...] the MDRD equation recommended by the | [facility] | | National Kidney Disease Education [...] | + + + + + | [facility] | [address] | [place] [address] | | | SERVICES, CORE | [address] | | | + + + + + MAGNESIUM, PLASMA (11/04/2017 5:59 AM PDT) + +-------+ + + + | Component | Value | Ref Range | Performed | Pathologist | | | | | At | Signature | + +-------+ + + + | MAGNESIUM,P | 2.1 | 1.6 - 2.6 mg/dL | [facility] | | | [facility] | | | [...] [facility] | [address] | [place] [address] | | | NATALEE WORTHINGTON | VILMA [...] | + + + + + | [facility] | [address] | [place] [address] | | | NATALEE WORTHINGTON | VILMA [...] | | | LABORATORY | | | [facility]IAN | | | SERVICES, | | | [...] | + + + + + | [facility] | [address] | [place] [address] | | | SERVICES, CORE | VIL[address] [...] + + | [facility] | [address] [facility] | [place] [address] | | | SERVICES, CORE | [address] [...] | | | LABORATORY | | | [facility]IAN | | | SERVICES, | | | [...] the MDRD equation recommended by the | [facility] | | National Kidney Disease Education Program. [...] [facility] | [address] | [place] [address] | | | SERVICES, CORE | VILMA [...] DEPT OF | [address] | [place], [place] | | | CARDIOLOGY | [address] | [address] | | + + + + + [...] | + + + + + | [facility] | [address] | [place] [address] | | | SERVICES, CORE | [address] [...] | | | LABORATORY | | | [facility]IAN | | | SERVICES, | | | [...] | + + + + + | [facility] | [address] | [place] [address] | | | SERVICES, CORE | [address] | | | + + + + + CT STEREOTACTIC HEAD WO CONTRAST (10/31/2017 5:58 PM PDT) + + | Specimen | + + | | + + + + + | Narrative | Performed At | + + + | EXAM: CT HEAD WITHOUT CONTRAST HISTORY: Surgical planning for | [facility] | | upcoming cranioplasty. History of multiple [...] Note | + + | Service Account, [employer] Res In Interface - 10/31/2017 8:22 PM [...] + + | QTC-BAMARIA DEL CARMEN | 443 | ms | [facility] [...] | [facility] | [address] | [place], [place] | | | CARDIOLOGY | [address] | [address] | | + + + + + [...] | | | LABORATORY | | | [facility]IAN | | | SERVICES, | | | [...] the MDRD equation recommended by the | [facility] | | National Kidney Disease Education [...] | + + + + + | [facility] | [address] | [place] [address] | | | SERVICES, CORE | [address] [...] [facility] | [address] | [place] [address] | | | SERVICES, NATALEE | VILMA [...] - [facility] | [address] | [place], [place] | | | GLORIA GENAO OF CARE | [address] | [address] | | | TESTS | | | [...] [facility] | [address] | [place] [address] | | | SERVICES, CORE | [address] [...] | | | LABORATORY | | | [facility]IAN | | | SERVICES, | | | [...] the MDRD equation recommended by the | [facility] | | National Kidney Disease Education Program. [...] + + | Performing | Address | City/State/[facility] | Phone Number | | Organization | | | | + + + + + | [facility] | [address] | [place] [address] | | | ELIN, CORE | VILMA [...] Note | + + | Service Account, Bambeco In Interface - 10/29/2017 12:13 PM PDT [...] [facility] | [address] | [place], [place] | | | [facility] | [address] | [address] | | | TESTS | | | [...] | + + + + + | [facility] | [address] | [place] [address] | | | SERVICES, CORE | [address] [...] | | | LABORATORY | | | G[facility]RALTARIAN | | | SERVICES, | | | [...] | + + + + + | [facility] | [address] | [place] [address] | | | SERVICES, CORE | VILMA [...] (H) | 70 - 99 mg/dL | [facility] - | | | GLUCOSE, | [...] [facility] | [address] | [place], [place] | | | GLORIA GENAO OF [facility] | [address] | [address] | | | TESTS | | | [...] + + + + | QTC-HALIMA | 463 | ms | [facility] [...] DEPT OF | [address] | [place], [place] | | | CARDIOLOGY | [address] | [address] | | + + + + + CAPILLARY BLOOD GLUCOSE (NO CHG), POC (10/28/2017 12:00 PM PDT) + +---------+ + + + | Component | Value | Ref Range | Performed | Pathologist | | | | | At | Signature | + +---------+ + + + | BLOOD | 141 (H) | 70 - 99 mg/dL | [facility] - | | | GLUCOSE, | [...] [facility] | [address] | [place], [place] | | | [facility] | [address] | [address] | | | TESTS | | | [...] [facility] | [address] | [place], [place] | | | GLORIA GENAO OF [facility] | [facility] | [address] | | | TESTS | | | [...] | + + + + + | [facility] | [address] | [place] [address] | | | SERVICES, NATALEE | VILMA [...] + | [facility] - | [address] | [place] [address] | | | [place] | | | [...] [facility] | [address] | [place] [address] | | | NATALEE WORTHINGTON | VILMA [...] | + + + + + | [facility] | [address] | [place] [address] | | | SERVICES, NATALEE | VILMA [...] [facility] | [address] | [place] [address] | | | SERVICES, CORE | [address] [...] | | | LABORATORY | | | G[facility]ALT[facility]IAN | | | SERVICES, | | | [...] the MDRD equation recommended by the | [facility] | | National Kidney Disease Education [...] | + + + + + | [facility] | [address] | [place] [address] | | | NATALEE WORTHINGTON | VILMA [...] | + + + + + | [facility] | [address] | [place] [address] | | | NATALEE WORTHINGTON | PARK [...] - [facility] | [address] | [place], [place] | | | [facility] GE[facility]O OF CARE | [facility] | [address] | | | TESTS | | | [...] (H) | 70 - 99 mg/dL | [facility] - | | | GLUCOSE, | [...] + + + | [facility] | [address] | [place], [place] | | | [facility] | [address] | [address] | | | TESTS | | | [...] Note | + + | Service Account, Bambeco In Interface - 10/28/2017 9:21 AM PDT [...] At | + + + | EXAM: NV CHEST PICC LINE CHECK HISTORY: picc done [...] Interface - 10/27/2017 6:29 PM PDT EXAM: NV CHEST | | PICC LINE CHECK HISTORY: [...] and TPN Procedure | | | location: Unit:[facility] Room: 4 Providers: Attending name: | [...] correct | | | patient, procedure, equipment, sales support consultant and site/side marked as | | | [...] vein. Catheter lot number: | | | [id number] with a length of 55 cm was [...] - [facility] | [address] | [place], [place] | | | [facility] | [address] | [address] | | | TESTS | | | [...] DEPT OF | [address] | [place], [place] | | | CARDIOLOGY | [address] | [address] | | + + + + + [...] [facility] | [address] | [place], [place] | | | [facility] CARE | [address] | [address] | | | TESTS | | | [...] | + + + + + | [facility] | [address] [facility] | [place] [address] | | | SERVICES, NATALEE | VILMA [...] | | | LABORATORY | | | [facility]IAN | | | SERVICES, | | | [...] | + + + + + | [facility] | [address] | [place] [address] | | | SERVICES, CORE | VILMA [...] [facility] | [address] | [place], [place] | | | GL[facility]IA GENAO OF [facility] | [facility] | [address] | | | TESTS | | | [...] [facility] | [address] | [place], [place] | | | GL[facility]IA GE[facility] OF [facility] | [facility] | [address] | | | TESTS | | | [...] (H) | 70 - 99 mg/dL | [facility] - | | | GLUCOSE, | [...] [facility] | [address] | [place], [place] | | | [facility] CARE | [address] | [address] | | | TESTS | | | [...] [facility] | [address] | [place] [address] | | | SERVICES, CORE | [address] [...] | | | LABORATORY | | | [facility]IAN | | | SERVICES, | | | [...] | + + + + + | [facility] | [address] | [place] [address] | | | NATALEE WORTHINGTON | VILMA [...] (H) | 70 - 99 mg/dL | [facility] - | | | GLUCOSE, | [...] [facility] | [address] | [place], [place] | | | [facility] | [address] | [address] | | | TESTS | | | [...] | | | LABORATORY | | | [facility]IAN | | | SERVICES, | | | [...] | + + + + + | [facility] | [address] | [place] [address] | | | ELIN, NATALEE | VILMA [...] 87 | 70 - 99 mg/dL | [facility] - | | | GLUCOSE, | [...] [facility] | [address] | [place], [place] | | | [facility] CARE | [address] | [address] | | | TESTS | | | [...] DEPT OF | [address] | [place], [place] | | | CARDIOLOGY | [address] | [address] | | + + + + + [...] [facility] | [address] | [place], [place] | | | [facility] | [facility] | [address] | | | TESTS | | | [...] DEPT OF | [address] | [place], [place] | | | CARDIOLOGY | [address] | [address] | | + + + + + [...] | + + + + + | [facility] | [address] | [place] [address] | | | SERVICES, NATALEE | VILMA [...] + | [facility] - | [address] | [place] [address] | | | [place] | | | | + + + [...] | + + + + + | [facility] | [address] | [place] [address] | | | SERVICES, CORE | VILMA [...] [facility] | [address] | [place] [address] | | | SERVICES, CORE | [address] [...] [facility] | [address] | [place] [address] | | | NATALEE WORTHINGTON | [address] | | | + + + + + AST PLASMA (10/24/2017 4:45 PM PDT) + +---------+ [...] [facility] | [address] | [place] [address] | | | SERVICES, CORE | [address]ARK [...] | + + + + + | [facility] | [address] | [place] [address] | | | SERVICES, CORE | VILMA [...] [facility] | [address] | [place] [address] | | | SERVICES, CORE | PARK [...] | + + + + + | [facility] | [address] | [place] [address] | | | ELIN, NATALEE | VILMA [...] | [facility] | [address] | [place] [address] | | | SERVICES, CORE | PARK [...] [facility] | [address] | [place] [address] | | | SERVICES, CORE | [address]ARK [...] [facility] | [address] | [place] [address] | | | SERVICES, CORE | [address]ARK [...] | | | LABORATORY | | | [facility]IAN | | | SERVICES, | | | [...] the MDRD equation recommended by the | [facility] | | National Kidney Disease Education [...] | + + + + + | [facility] | [address] [facility] | [place] [address] | | | NATALEE WORTHINGTON | [address] [...] | | | correct patient, procedure, equipment, sales support consultant and site/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 Catheter lot number: [id number] with a length of 55 | | [...] At | + + + | EXAM: NV CHEST 1 VIEW HISTORY: PICC placed-pt ready. [...] Interface - 10/24/2017 3:43 PM PDT EXAM: NV CHEST 1 | | VIEW HISTORY: PICC [...] + + | [facility] | [address] [facility] | [place], [place] | | | [facility] | [address] | [address] | | | TESTS | | | [...] | stable condition. I certify that Dr. Kiraly was present for the | | | [...] | | Surgical Critical Care, PGY7 Pager: [phone] | | + + + CAPILLARY BLOOD [...] [facility] | [address] | [place], [place] | | | [facility] | [address] | [address] | | | TESTS | | | [...] [facility] | [address] | [place], [place] | | | [facility] | [facility] | [address] | | | TESTS | | | [...] | | | LABORATORY | | | [facility] | | | SERVICES, | | | [...] | + + + + + | [employer] | [address] | [place] [address] | | | NATALEE WORTHINGTON | [place] [...] [facility] | [address] | [place] [address] | | | ELIN, NATALEE | PARK [...] + + + | [facility] | [address] | [place], [place] | | | [facility] | [address] | [address] | | | TESTS | | | [...] | + + + + + | [facility] | [address] | [place] [address] | | | SERVICES, CORE | PARK [...] | | | LABORATORY | | | [facility] | | | SERVICES, | | | [...] | + + + + + | [employer] | [address] | [place] [address] | | | SERVICES, CORE | PARK [...] + + | [facility] | [address] | [place], [place] | | | CARDIOLOGY | [address] | [address] | | + + + + + IR GASTROSTOMY TUBE EXCHANGE (10/22/2017 2:42 PM PDT) + + | Specimen | + + | | + + + + + | Narrative | Performed At | + + + | Procedure: Gastrostomy tube exchange Primary attending | [facility] | | packaging designer: Shade Nix M.D. Preoperative diagnosis: | RADIOLOGY VOICE | | Malfunctioning Gastrostomy tube Postoperative diagnosis: Same | RECOGNITION | | Operations: Operation 1. Removal of existing Gastrostomy tube | | | over a guide wire Operation 2. Placement of 24 [place]ian GABRIEL | | | gastrostomy over guide [...] a stiff glide wire the new 24 [place]ian gastrostomy tube was | | | inserted. [...] Procedure: | | Gastrostomy tube exchangePrimary attending packaging designer: Shade Nix | | BrynPreoperative diagnosis: Malfunctioning Gastrostomy tubePostoperative diagnosis: | | SameOperations:Operation 1. Removal of existing Gastrostomy tube over a guide | | wireOperation 2. Placement of 24 [place]ian GABRIEL gastrostomy over guide wireNo sedation was [...] glide wire the | | new 24 [place]ian gastrostomy tube was inserted. The position of [...] stiff g lide wire the new 24 [place]ian | |gastrostomy tube was inserted. The position [...] Note | + + | Service Account, RadiAdayana Res In Interface - 10/22/2017 10:34 AM [...] + + | [facility] | [address] | [place], [place] | | | CARDIOLOGY | [address] | [address] | | + + + + + [...] | + + + + + | [facility] | [address] [facility] | [place], [place] [address] | | | SERVICES, CORE | PARK [...] | | | LABORATORY | | | [facility] | | | SERVICES, | | | [...] | + + + + + | [facility] | [address] | [place] [address] | | | SERVICES, CORE | VILMA [...] + | [facility] | [address] [facility] | [place], [place] | | | CARDIOLOGY | [address] | [address] | | + + + + + [...] | | | LABORATORY | | | [facility] | | | SERVICES, | | | [...] | + + + + + | [facility] | [address] | [place] [address] | | | SERVICES, CORE | VILMA [...] | + + + + + | [facility] | [address] | [place] [address] | | | SERVICES, CORE | PARK [...] GEET OF | [address] | [place], [place] | | | CARDIOLOGY | [address] | [address] | | + + + + + [...] | + + + + + | [facility] | [address] [facility] | [place] [address] | | | SERVICES, CORE | VILMA [...] | | | LABORATORY | | | [facility] | | | SERVICES, | | | [...] | + + + + + | [facility] | [address] | [place] [address] | | | SERVICES, CORE | VILMA [...] | + + + + + | [facility] | [address] | [place], [place] | | | CARDIOLOGY | [address] | [address] | | + + + + + [...] | | | LABORATORY | | | [facility] | | | SERVICES, | | | [...] [facility] | [address] | [place] [address] | | | SERVICES, CORE | PARK [...] [facility] | [address] | [place] [address] | | | SERVICES, CORE | VILMA [...] + + + + | QTC-BAZETT | 476 | ms | [facility] [...] | [facility] | [address] | [place], [place] | | | CARDIOLOGY | [address] | [address] | | + + + + + [...] | | | LABORATORY | | | [facility] | | | SERVICES, | | | [...] the MDRD equation recommended by the | [facility] | | National Kidney Disease Education [...] [facility] | [address] | [place] [address] | | | SERVICES, CORE | PARK [...] | + + + + + | [facility] | [address] | [place] [address] | | | SERVICES, CORE | VILMA [...] | | + +---------+ + + | [facility] | | | | | VASC [...] DEPT OF | [address] | [place], [place] | | | CARDIOLOGY | [address] | [address] | | + + + + + [...] [facility] | [address] | [place], [place] | | | [facility] | [facility] | [address] | | | TESTS | | | [...] [facility] | [address] | [place] [address] | | | NATALEE WORTHINGTON | VILMA [...] [facility] | [address] | [place], [place] | | | [facility] | [address] | [address] | | | TESTS | | | [...] DEPT OF | [address] | [place], [place] | | | CARDIOLOGY | [address] | [address] | | + + + + + [...] [facility] | [address] | [place] [address] | | | NATALEE WORTHINTGON | [address] | | | + [...] | | | LABORATORY | | | [facility] | | | SERVICES, | | | [...] | + + + + + | [facility] | [address] | [place] [address] | | | SERVICES, NATALEE | VILMA [...] | + + + + + | [facility] | [address] | [place] [address] | | | NATALEE WORTHINGTON | PARK [...] [facility] | [address] | [place], [place] | | | [facility] | [address] | [address] | | | TESTS | | | [...] [facility] | [address] | [place], [place] | | | [facility] | [address] | [address] | | | TESTS | | | [...] | 09/05/2017 | LABORATORY | | | ELIN, NATALEE | + + + + + + + + | Performing | Address | City/State/Zipcode | Phone Number | | Organization | | | | + + + + + | [facility] | [address] | [place] [address] | | | SERVICES, NATALEE | VILMA [...] | | | LABORATORY | | | [facility] | | | SERVICES, | | | [...] | + + + + + | [facility] | [address] | [place] [address] | | | SERVICES, CORE | [address] | | | + + + + + OPERATION RECORD (10/12/2017 8:50 PM PDT) + + | Procedure Note | + + | Pilar Cotto MD - 10/12/2017 8:50 PM PDT Date of Service: 10/12/2017 | | Attending Surgeon: Chaz Hernandez MD Poultry Picker(s): Randell Dixon M.D., | | fellow. George [...] saline. We then | | placed a 19-Djiboutian drain deep into the abscess cavity, tracking [...] 10/12/2017 19:50:06DT: 10/12/2017 20:50:54Job #: | | [id number] | + + X-RAY PORTABLE CHEST 1 VIEW (10/12/2017 7:50 PM PDT) + + | Specimen | + + | | + + + + + | Narrative | Performed At | + + + | EXAM: NV CHEST 1 VIEW HISTORY: Evaluate endotracheal tube [...] Note | + + | Service Account, [employer] Res In Interface - 10/13/2017 9:04 AM PDT EXAM: NV CHEST 1 | | VIEW HISTORY: Evaluate [...] [facility] | [address] | [place], [place] | | | [facility]IA GENAO OF [facility] | [address] | [address] | | | TESTS | | | [...] Note | + + | Service Account, [employer] Res In Interface - 10/12/2017 5:05 PM [...] | | + +---------+ + + | [facility] | | | | | [...] [facility] | [address] | [place] [address] | | | SERVICES, CORE | PARK [...] | | | LABORATORY | | | [facility] | | | SERVICES, | | | [...] the MDRD equation recommended by the | [facility] | | National Kidney Disease Education [...] | + + + + + | [facility] | [address] | [place] [address] | | | SERVICES, CORE | PARK [...] | + + + + + | [facility] | [address] | [place] [address] | | | NATALEE WORTHINGTON | VILMA [...] + + + + | LAUREN | 489 | ms | [facility] [...] DEPT OF | [address] | [place], [place] | | | CARDIOLOGY | [address] | [address] | | + + + + + [...] + + + | ANA LILIA-HALIMA | 477 | ms | [facility] [...] DEPT OF | [address] | [place], [place] | | | CARDIOLOGY | [facility] | [address] | | + + + + + [...] | + + + + + | [facility] | [address] | [place] [address] | | | SERVICES, CORE | PARK [...] [facility] | [address] | [place] [address] | | | SERVICES, CORE | PARK [...] | | | LABORATORY | | | [facility] | | | SERVICES, | | | [...] the MDRD equation recommended by the | [facility] | | National Kidney Disease Education Program. [...] | + + + + + | [facility] | [address] [facility] | [place] [address] | | | NATALEE WORTHINGTON | [address] | | | + + + + + PROCEDURE NOTE (10/10/2017 10:00 PM PDT) + + + | Narrative | Performed At | + + + | Darius Link MD 10/12/2017 11:11 AM OPERATIVE REPORT | | | DATE OF OPERATION: 10/10/2017 ATTENDING SURGEON: 1. Dr. Hernandez | | | DYE TUB OPERATOR: 1. Darius Link MD INDICATIONS: Dysphagia | | | and need for [facility] nutrition access PREOPERATIVE DIAGNOSIS: | | | 1.Dysphagia and need for stippler nutrition access | | | POSTOPERATIVE DIAGNOSIS: [...] | | | [place] [id number] Chief Resident | | | Neurosurgery | [...] | + + + + + | [facility] | [address] | [place] [address] | | | SERVICES, CORE | VILMA [...] | | | LABORATORY | | | [facility] | | | SERVICES, | | | [...] | + + + + + | [facility] | [address] | [place] [address] | | | ELIN, NATALEE | [address] | | | + + + + + MAGNESIUM, PLASMA (10/10/2017 2:02 PM PDT) + +-------+ + + + | Component | Value | Ref Range | Performed | Pathologist | | | | | At | Signature | + +-------+ + + + | MAGNESIUM,P | 1.9 | 1.6 - 2.6 mg/dL | [facility] | | | [facility] | | | [...] + + | [facility] | [address] | [place] [address] | | | SERVICES, [facility] | [address] | | | + + + + + OPERATION RECORD (10/10/2017 12:40 PM PDT) + + | Procedure Note | + + | Magdiel Stock MD - 10/10/2017 12:40 PM PDT Date of Service: 10/10/2017 Attending | | Surgeon: Magdiel Stock MD Poultry Picker(s): Cecilia Jackson, | | . Preoperative Diagnoses: [...] This is a 67-year-old male. Please see [facility] for full details. He | [...] the note for this encounter.Sonal Nunez MDOHSU [id number] [facility] | | [place] [phone] Orina, MDFAH/MODLDD: | | 10/10/2017 11:52:15DT: 10/10/2017 12:40:41Job #: [id number] | | | | | |I was present for the critical portions of the procedure as described in the note for this encounter. | | | |Magdiel Stock MD | | | |Magdiel Stock MD | |[address] | |[address] [place] [address] | |[facility] | |[place] [address] | |[phone] | | | | | |Magdiel Stock MD | |FAH/MODL | | | | | | /[id number] | + + X-RAY ABDOMEN 1 VIEW [...] | + + + + + | [facility] - | [address] | [place] [address] | | | [place] | | | [...] | + + + + + | [facility] | [address] | [place] [address] | | | [place] | | | | + + + [...] Gram Stain: No squamous epithelial cells | [place] | | Many polymorphonuclear cells No organisms seen | | + + + + + + + + | Performing | Address | City/State/Zipcode | Phone Number | | Organization | | | | + + + + + | [facility] | [address] | [place] [address] | | | [place] | | | | + + + + + CULTURE, AFB JENNA SPEC TYPES EXCEPT BLOOD) (10/10/2017 9:00 AM [...] detected | [facility] - | | | [place] | + + + + + + + + | Performing | Address | City/State/Zipcode | Phone Number | | Organization | | | | + + + + + | [facility] | [address] | [place] [address] | | | [place] | | | | + + + [...] + | [facility] | [address] | [place] [address] | | | [place] | | | [...] Rare Pseudomonas aeruginosa Refer to culture | [facility] - | | collected 10/10/17 at 0903 for susceptibilities No anaerobic | [facility] - | | organisms isolated Gram Stain: No squamous epithelial cells | [place] | | Many polymorphonuclear cells No organisms seen | | + + + + + + + + | Performing | Address | City/State/Zipcode | Phone Number | | Organization | | | | + + + + + | [facility] | [address] | [place] [address] | | | [facility] | | | | + + [...] + | [facility] | [address] | [place] [address] | | | [place] | | | [...] + | [facility] | [address] | [place] [address] | | | [place] | | | | + + + [...] No squamous epithelial cells No polymorphonuclear | [facility] - | | cells No organisms seen | [place] | + + + + + + + + | Performing | Address | City/State/Zipcode | Phone Number | | Organization | | | | + + + + + | [facility] | [address] | [place] [address] | | | [place] | | | | + + + [...] + | [facility] | [address] | [place] [address] | | | [place] | | | [...] Gram Stain: No squamous epithelial cells | [facility] | | Moderate polymorphonuclear cells No organisms seen | | + + + + + + + + | Performing | Address | City/State/Zipcode | Phone Number | | Organization | | | | + + + + + | [facility] | [address] | [place] [address] | | | [facility] | | | | + + [...] detected | [facility] - | | | [place] | + + + + + + + + | Performing | Address | City/State/Zipcode | Phone Number | | Organization | | | | + + + + + | [facility] | [address] | [place] [address] | | | [place] | | | | + + + [...] + | [facility] | [address] | [place] [address] | | | [place] | | | [...] 1+ Pseudomonas aeruginosa Refer to culture | [facility] - | | collected 10/10/17 at 0903 [...] + | [facility] | [address] | [place] [address] | | | [place] | | | [...] + | [facility] | [address] | [place] [address] | | | [place] | | | [...] + | [facility] | [address] | [place] [address] | | | [place] | | | [...] + | [facility] | [address] | [place] [address] | | | [place] | | | [...] + | [facility] | [address] | [place] [address] | | | [place] | | | | + + + [...] [facility] | [address] | [place] [address] | | | SERVICES, CORE | PARK [...] | + + + + + | [facility] | [address] | [place] [address] | | | ELIN, NATALEE | [address] | | | + + + + + MAGNESIUM, PLASMA (10/10/2017 2:36 AM PDT) + +-------+ + + + | Component | Value | Ref Range | Performed | Pathologist | | | | | At | Signature | + +-------+ + + + | MAGNESIUM,P | 2.2 | 1.6 - 2.6 mg/dL | [facility] | | | [facility] | | | [...] [facility] | [address] | [place] [address] | | | SERVICES, CORE | [address] [...] | | | LABORATORY | | | [facility] | | | SERVICES, | | | [...] (H) | 4 - 11 mmol/L | [facility] | | | GAP(ALB | | | [...] | + + + + + | [facility] | [address] | [place] [address] | | | NATALEE WORTHINGTON | VILMA [...] + | [facility] | [address] [facility] | [place], [place] | | | CARDIOLOGY | [address] | [address] | | + + + + + [...] + + + + | PRODUCT | [id number] | | [facility] | | | UNIT [...] + + + + | EXPIRATION | [id number] | | [facility] | | | DATE [...] + + + + | BLOOD | [id number] | | [facility] | | | PRODUCT [...] | + + + + + | [facility] | [address] | [place] [address] | | | SERVICES, | [address] [...] + + + + | PRODUCT | [id number] | | [facility] | | | UNIT [...] + + + + | EXPIRATION | [id number] | | [facility] | | | DATE [...] + + + + | BLOOD | [id number] | | [facility] | | | PRODUCT [...] | + + + + + | [facility] | [address] | [place] [address] | | | SERVICES, | [address] [...] [facility] | [address] | [place] [address] | | | SERVICES, | [address] [...] [facility] | [address] | [place] [address] | | | SERVICES, | [address] [...] | + + + + + | [facility] | [address] | [place] [address] | | | SERVICES, | [address] [...] | + + + + + | [facility] | [address] | [place] [address] | | | SERVICES, CORE | PARK [...] DEPT OF | [address] | [place], [place] | | | CARDIOLOGY | [address] | [address] | | + + + + + [...] Note | + + | Service Account, [employer] Res In Interface - 10/08/2017 10:47 AM [...] [facility] | [address] | [place], [place] | | | [facility] | [facility] | [address] | | | TESTS | | | [...] | + + + + + | [facility] | [address] | [place] [address] | | | SERVICES, CORE | [address] | | | + + + + + MAGNESIUM, PLASMA (10/08/2017 6:00 AM PDT) + +-------+ + + + | Component | Value | Ref Range | Performed | Pathologist | | | | | At | Signature | + +-------+ + + + | MAGNESIUM,P | 2.2 | 1.6 - 2.6 mg/dL | [facility] | | | [facility] | | [...] [facility] | [address] | [place] [address] | | | SERVICES, NATALEE | [address] [...] | | | LABORATORY | | | [facility] | | | SERVICES, | | | [...] | + + + + + | [facility] | [address] | [place] [address] | | | SERVICES, CORE | VILMA [...] [facility] | [address] | [place], [place] | | | [facility] | [address] | [address] | | | TESTS | | | [...] (H) | 70 - 99 mg/dL | [facility] - | | | GLUCOSE, | | [...] [facility] | [address] | [place], [place] | | | [facility] | [address] | [address] | | | TESTS | | | [...] [facility] | [address] | [place], [place] | | | [facility] | [address] | [address] | | | TESTS | | | [...] [facility] | [address] | [place], [place] | | | [facility] | [address] | [address] | | | TESTS | | | [...] (H) | 70 - 99 mg/dL | [facility] - | | | GLUCOSE, | [...] | [facility] | [address] | [place], [place] | | | [facility] | [address] | [address] | | | TESTS | | | [...] | + + + + + | [facility] | [address] | [place] [address] | | | NATALEE WORTHINGTON | [address] [...] | + + + + + | [facility] | [address] | [place] [address] | | | SERVICES, CORE | PARK [...] | | | LABORATORY | | | [facility] | | | SERVICES, | | | [...] | + + + + + | [facility] | [address] | [place] [address] | | | SERVICES, CORE | VILMA [...] [facility] | [address] | [place], [place] | | | [facility] | [address] | [address] | | | TESTS | | | [...] [facility] | [address] | [place], [place] | | | [facility] | [address] | [address] | | | TESTS | | | [...] + + | [facility]AM[facility] CAR[facility] | 427 | ms | [facility] DE[facility] [...] DEPT OF | [address] | [place], [place] | | | CARDIOLOGY | [address] | [address] | | + + + + + CAPILLARY BLOOD GLUCOSE (NO CHG), POC (10/06/2017 12:03 PM PDT) + +-------+ + + + | Component | Value | Ref Range | Performed | Pathologist | | | | | At | Signature | + +-------+ + + + | BLOOD | 87 | 70 - 99 mg/dL | [facility] - | | | GLUCOSE, | | [...] [facility] | [address] | [place], [place] | | | [facility] | [address] | [address] | | | TESTS | | | [...] | + + + + + | [facility] | [address] | [place] [address] | | | NATALEE WORTHINGTON | [address] [...] | + + + + + | [facility] | [address] | [place] [address] | | | ELIN, NATALEE | [address] [...] | | | LABORATORY | | | [facility] | | | SERVICES, | | | [...] | + + + + + | [facility] | [address] | [place] [address] | | | SERVICES, CORE | [address] [...] (H) | 70 - 99 mg/dL | [facility] - | | | GLUCOSE, | [...] [facility] | [address] | [place], [place] | | | [facility] | [facility] | [address] | | | TESTS | | | [...] [facility] | [address] | [place], [place] | | | [facility] | [facility] | [address] | | | TESTS | | | [...] [facility] | [address] | [place], [place] | | | [facility] | [facility] | [address] | | | TESTS | | | [...] [facility] | [address] | [place], [place] | | | [facility] | [address] | [address] | | | TESTS | | | [...] DEPT OF | [address] | [place], [place] | | | CARDIOLOGY | [address] | [address] | | + + + + + [...] | + + + + + | [facility] | [address] | [place] [address] | | | SERVICES, CORE | [address]ARK [...] + + | [facility] | [address] [facility] | [place] [address] | | | SERVICES, CORE | [address] [...] | | | LABORATORY | | | [facility] | | | SERVICES, | | | [...] the MDRD equation recommended by the | [facility] | | National Kidney Disease Education [...] | + + + + + | [facility] | [address] | [place] [address] | | | ELIN, NATALEE | [address] [...] (H) | 70 - 99 mg/dL | [facility] - | | | GLUCOSE, | [...] [facility] | [address] | [place], [place] | | | [facility] | [address] | [address] | | | TESTS | | | [...] [facility] | [address] | [place], [place] | | | [facility] [employer] | [address] | [address] | | | TESTS | | | [...] [facility] | [address] | [place], [place] | | | [facility] | [facility] | [address] | | | TESTS | | | [...] (H) | 70 - 99 mg/dL | [facility] - | | | GLUCOSE, | [...] [facility] | [address] | [place], [place] | | | [facility] | [address] | [address] | | | TESTS | | | [...] [facility] | [address] | [place], [place] | | | [facility] | [address] | [address] | | | TESTS | | | [...] | + + + + + | [facility] | [address] | [place] [address] | | | SERVICES, CORE | PARK [...] [facility] | [address] | [place] [address] | | | SERVICES, NATALEE | VILMA [...] | | | LABORATORY | | | [facility] | | | SERVICES, | | | [...] | + + + + + | [facility] | [address] | [place] [address] | | | SERVICES, NATALEE | VILMA [...] [facility] | [address] | [place], [place] | | | [facility] | [facility] | [address] | | | TESTS | | | [...] (H) | 70 - 99 mg/dL | [facility] - | | | GLUCOSE, | [...] [facility] | [address] | [place], [place] | | | [facility] | [address] | [address] | | | TESTS | | | [...] | + + + + + | [facility] | [address] | [place] [address] | | | SERVICES, CORE | VILMA [...] by | | | | | | [employer],[address] | | | | | | [facility],[place] | | | | | | [address] | | | | | | [phone].[email or web address]. | | | | | | Gui [...] [facility] | [address] | [place], [place] | | | [facility] | | [address] | | + + + + + [...] | + + + + + | [facility] | [address] | [place] [address] | | | SERVICES, CORE | PARK [...] | + + + + + | [facility] | [address] | [place] [address] | | | SERVICES, CORE | [address] [...] modified from | [facility] | | original animal eviscerator's approved specifications. The performance | LABORATORY | | of the MANAGER ACTION HIV Combo test, with or without confirmation, [...] | + + + + + | [facility] | [address] | [place] [address] | | | SERVICES, SPECIAL | [facility] [...] (H) | 70 - 99 mg/dL | [facility] - | | | GLUCOSE, | [...] [facility] | [address] | [place], [place] | | | [facility] | [address] | [address] | | | TESTS | | | [...] [facility] | [address] | [place], [place] | | | [facility] | [facility] | [address] | | | TESTS | | | [...] [facility] | [address] | [place] [address] | | | SERVICES, CORE | PARK [...] [facility] | [address] | [place] [address] | | | SERVICES, CORE | PARK [...] | | | LABORATORY | | | [facility] | | | SERVICES, | | | [...] the MDRD equation recommended by the | [facility] | | National Kidney Disease Education Program. [...] | + + + + + | [facility] | [address] | [place] [address] | | | NATALEE WORTHINGTON | V[place]MA [...] + | SE[facility] | [address] | [place], [place] | | | [facility] | [address] | [address] | | | TESTS | | | [...] Perkins MD 10/03/2017 8:38 AM Preliminary: Master nSyder | | MD Walter Dictation initiated: Master [...] [facility] | [address] | [place], [place] | | | [facility] | [address] | [address] | | | TESTS | | | [...] DEPT OF | [address] | [place], [place] | | | CARDIOLOGY | [address] | [address] | | + + + + + [...] At | + + + | EXAM: NV CHEST 1 VIEW HISTORY: Evaluate PICC placement [...] Note | + + | Service Account, RadiAdayana Res In Interface - 10/02/2017 2:07 PM PDT EXAM: NV CHEST 1 | | VIEW HISTORY: Evaluate [...] + + | [facility] | [address] | [place], [place] | | | [facility] | [address] | [address] | | | TESTS | | | | + + + + + X-RAY PORTABLE CHEST 1 VIEW (10/02/2017 8:56 AM PDT) + + | Specimen | + + | | + + + + + | Narrative | Performed At | + + + | EXAM: NV CHEST 1 VIEW HISTORY: new leukocytosis, eval [...] Interface - 10/02/2017 10:27 AM PDT EXAM: NV CHEST 1 | | VIEW HISTORY: new [...] [facility] | [address] | [place], [place] | | | [facility] | [address] | [address] | | | TESTS | | | [...] | + + + + + | [facility] | [address] | [place] [address] | | | NATALEE WORTHINGTON | VILMA [...] | + + + + + | [facility] | [address] [facility] | [place] [address] | | | NATALEE WORTHINGTON | PARK [...] | | | LABORATORY | | | [facility] | | | SERVICES, | | | [...] | + + + + + | [facility] | [address] | [place] [address] | | | SERVICES, CORE | PARK [...] (H) | 70 - 99 mg/dL | [facility] - | | | GLUCOSE, | [...] PICKETT | [address] | [place], [place] | | | GLORIA GENAO OF [facility] | [facility] | [address] | | | TESTS | | | [...] MARQUAM | [address] | [place], [place] | | | [facility] | [address] | [address] | | | TESTS | | | [...] + + | Performing | Address | City/State/[facility] | Phone Number | | Organization | | | | + + + + + | [facility] | [address] | [place], [place] | | | [facility] GE[facility] | [address] | [address] | | | TESTS | | | [...] Note | + + | Service Account, Bambeco In Interface - 10/01/2017 11:34 AM PDT [...] PICKETT | [address] | [place], [place] | | | [facility] GE[facility] CARE | [address] | [address] | | | TESTS | | | [...] [facility] | [address] | [place] [address] | | | NATALEE WORTHINGTON | VILMA [...] | + + + + + | [facility] | [address] | [place] [address] | | | NATALEE WORTHINGTON | VILMA [...] | | | LABORATORY | | | G[facility]IAN | | | SERVICES, | | | [...] | + + + + + | [facility] | [address] | [place] [address] | | | SERVICES, CORE | VILMA [...] PIYUSH | [address] | [place], [place] | | | GLORIA GENAO [facility] | [address] | [address] | | | TESTS | | | [...] Jorge [facility]T | [address] | [place], [place] | | | [facility] GENAO OF [facility] | [facility] | [address] | | | TESTS | | | [...] GE[facility] OF | [address] | [place], [place] | | | CARDIOLOGY | [address] | [address] | | + + + + + [...] PICKETT | [address] | [place], [place] | | | [facility] | [address] | [address] | | | TESTS | | | [...] MARQUAM | [address] | [place], [place] | | | [facility] GE[facility] CARE | [address] | [address] | | | TESTS | | | [...] [facility] | [address] | [place] [address] | | | ELIN, NATALEE | PARK [...] [facility] | [address] | [place] [address] | | | SERVICES, CORE | PARK [...] | | | LABORATORY | | | GIBRALTARIAN | | | SERVICES, | | | [...] the MDRD equation recommended by the | [facility] | | National Kidney Disease Education Program. [...] | + + + + + | [facility] | [address] [facility] [facility] | [place] [address] | | | NATALEE WORTHINGTON | VILMA [...] [facility] | [address] | [place], [place] | | | [facility] | [address] | [address] | | | TESTS | | | [...] + + + | [facility] | [address] | [place], [place] | | | GL[facility]IA GENAO [facility] | [address] | [address] | | | TESTS | | | [...] MARQUAM | [address] | [place], [place] | | | [facility] | [address] | [address] | | | TESTS | | | [...] + + + + | LAUREN | 442 | ms | [facility] [...] DEPT OF | [address] | [place], [place] | | | CARDIOLOGY | [address] | [address] | | + + + + + [...] PICKETT | [address] | [place], [place] | | | GLORIA GENAO OF [facility] | [facility] | [address] | | | TESTS | | | [...] | + + + + + | [facility] | [address] | [place] [address] | | | SERVICES, CORE | VILMA [...] | | | LABORATORY | | | GIBRALTARIAN | | | SERVICES, | | | [...] [facility] | [address] | [place] [address] | | | SERVICES, CORE | PARK [...] | + + + + + | [facility] | [address] | [place] [address] | | | NATALEE WORTHINGTON | VILMA [...] MAR[facility] | [address] | [place], [place] | | | HILL, POINT OF CARE | [address] | [address] | | | TESTS | | | [...] MARQUAM | [address] | [place], [place] | | | GL[facility]IA GENAO [facility] | [address] | [address] | | | TESTS | | | [...] PICKETT | [address] | [place], [place] | | | [facility] GE[facility] CARE | [address] | [address] | | | TESTS | | | [...] DEPT OF | [address] | [place], [place] | | | CARDIOLOGY | [address] | [address] | | + + + + + [...] P[facility]ET[facility] | [address] | [place], [place] | | | [facility] | [address] | [address] | | | TESTS | | | [...] [facility] | [address] | [place] [address] | | | NATALEE WORTHINGTON | VILMA [...] | + + + + + | [facility] | [address] | [place] [address] | | | NATALEE WORTHINGTON | VILMA [...] | | | LABORATORY | | | G[facility]RALTARIAN | | | SERVICES, | | | [...] | + + + + + | [facility] | [address] | [place] [address] | | | SERVICES, CORE | VILMA [...] PICKETT | [address] | [place], [place] | | | GLORIA GENAO OF [employer] | [facility] | [address] | | | TESTS | | | [...] | + + + + + | [facility] | [address] [facility] [address] | [place], [place] | | | [facility]IA GENAO OF [facility] | [address] | [address] | | | TESTS | | | [...] poorly cleared with dry swallows. Please see [facility] for full details | | [...] [facility] | [address] | [place], [place] | | | [facility] GE[facility] CARE | [address] | [address] | | | TESTS | | | [...] - PIYUSH | [address] | [place], [place] | | | [facility] | [address] | [address] | | | TESTS | | | [...] | + + + + + | [facility] | [address] | [place] [address] | | | SERVICES, CORE | VILMA [...] | + + + + + | [facility] | [address] | [place] [address] | | | SERVICES, CORE | PARK [...] | | | LABORATORY | | | [facility]ARIAN | | | SERVICES, | | | [...] the MDRD equation recommended by the | [facility] | | National Kidney Disease Education [...] | + + + + + | [facility] | [address] | [place] [address] | | | SERVICES, CORE | VILMA [...] (H) | 70 - 99 mg/dL | [facility] - | | | GLUCOSE, | [...] PICKETT | [address] | [place], [place] | | | [facility] GENAO OF [facility] | [address] | [address] | | | TESTS | | | [...] MARQU[facility] | [address] | [place], [place] | | | [facility] CARE | [address] | [address] | | | TESTS | | | [...] DEPT OF | [address] | [place], [place] | | | CARDIOLOGY | [address] | [address] | | + + + + + [...] PICKETT | [address] | [place], [place] | | | [facility] | [address] | [address] | | | TESTS | | | [...] MAR[facility] | [address] | [place], [place] | | | [facility] | [address] | [address] | | | TESTS | | | [...] - MAR[facility] | [address] | [place], [place] | | | [facility] | [address] | [address] | | | TESTS | | | [...] | + + + + + | [facility] | [address] [address] [facility] | [place] [address] | | | NATALEE WORTHINGTON | VILMA [...] | + + + + + | [facility] | [address] | [place] [address] | | | SERVICES, CORE | PARK [...] | | | LABORATORY | | | GIBRALTARIAN | | | SERVICES, | | | [...] | + + + + + | [facility] | [address] | [place] [address] | | | SERVICES, CORE | VILMA [...] (H) | 70 - 99 mg/dL | [facility] - | | | GLUCOSE, | [...] PICKETT | [address] | [place], [place] | | | [facility]O [facility] | [facility] | [address] | | | TESTS | | | [...] | + + + + + | [facility] | [address] | [place] [address] | | | SERVICES, NATALEE | VILMA [...] | + + + + + | [facility] | [address] | [place] [address] | | | SERVICES, CORE | VILMA [...] | | | LABORATORY | | | GIBRALTARIAN | | | SERVICES, | | | [...] | + + + + + | [facility] | [address] | [place] [address] | | | SERVICES, NATALEE | [address] | | | + + + + + 12 LEAD ECG (09/24/2017 9:28 PM PDT) + + + + + + | Component | Value | Ref Range | Performed | Pathologist | | | | | At | Signature | + + + + + + | VENTRICULAR | 74 | bpm | [facility] | | | RATE | | [...] DEPT OF | [address] | [place], [place] | | | CARDIOLOGY | [address] | [address] | | + + + + + [...] Note | + + | Service Account, [employer] Services Res In Interface - 09/24/2017 4:09 PM [...] | + + + + + | [facility] | [address] [address] [facility] | [place] [address] | | | SERVICES, CORE | PARK [...] | | | LABORATORY | | | GIBRALTARIAN | | | SERVICES, | | | [...] + + | [facility] | [address] | [place] [address] | | | SERVICES, CORE | PARK [...] | + + + + + | [facility] | [address] | [place] [address] | | | NATALEE WORTHINGTON | VILMA [...] | + + + + + | [facility] | [address] | [place] [address] | | | SERVICES, CORE | [address] | | | + + + + + MAGNESIUM, PLASMA (09/23/2017 4:04 AM PDT) + +-------+ + + + | Component | Value | Ref Range | Performed | Pathologist | | | | | At | Signature | + +-------+ + + + | MAGNESIUM,P | 2.1 | 1.6 - 2.6 mg/dL | [facility] | | | LASMA | | | [...] [facility] | [address] | [place] [address] | | | SERVICES, NATALEE | VILMA [...] | | | LABORATORY | | | GIBRALTARIAN | | | SERVICES, | | | [...] | + + + + + | [facility] | [address] | [place] [address] | | | SERVICES, NATALEE | VILMA [...] [facility] | [address] | [place], [place] | | | [facility] GE[facility] CARE | [facility] | [address] | | | TESTS | | | [...] (H) | 70 - 99 mg/dL | [facility] - | | | GLUCOSE, | [...] P[facility]T | [address] | [place], [place] | | | [facility] | [address] | [address] | | | TESTS | | | [...] | + + + + + | [facility] | [address] | [place] [address] | | | SERVICES, CORE | PARK [...] + + + + | QTC-HAL[facility]A | 445 | ms | [facility] [...] DEPT OF | [address] | [place], [place] | | | CARDIOLOGY | [address] | [address] | | + + + + + [...] [facility] | [address] | [place] [address] | | | ELIN, NATALEE | PARK [...] [facility] | [address] | [place] [address] | | | SERVICES, CORE | PARK [...] | | | LABORATORY | | | GIBRALTARIAN | | | SERVICES, | | | [...] the MDRD equation recommended by the | [facility] | | National Kidney Disease Education Program. [...] | + + + + + | [facility] | [address] | [place] [address] | | | NATALEE WORTHINGTON | VILMA [...] [facility] | [address] | [place], [place] | | | [facility] | [address] | [address] | | | TESTS | | | | + + + + + CT HEAD WO CONTRAST (09/21/2017 9:53 PM PDT) + + | Specimen | + + | | + + + + + | Narrative | Performed At | + + + | EXAM: CT HEAD WITHOUT CONTRAST HISTORY: new left facial droop, | [facility] | | dilated L pupil COMPARISON: 09/12/2017 [...] [facility] | [address] | [place] [address] | | | NATALEE WORTHINGTON | VILMA [...] | + + + + + | [facility] | [address] | [place] [address] | | | NATALEE WORTHINGTON | PARK [...] | | | LABORATORY | | | GIBRALTARIAN | | | SERVICES, | | | [...] | + + + + + | [facility] | [address] | [place] [address] | | | SERVICES, CORE | VILMA [...] Note | + + | Service Account, [employer] Services Res In Interface - 09/20/2017 7:50 PM [...] Account, Kostas Res In Interface - 09/20/2017 6:25 PM [...] Note | + + | Service Account, Bambeco In Interface - 09/20/2017 6:26 PM PDT [...] Note | + + | Service Account, Bambeco In Interface - 09/20/2017 5:17 PM PDT [...] + + + + | QTC-HALIMA | 444 | ms | [facility] DE[facility] [...] OF | [address] | [place], [place] | | | CARDIOLOGY | [address] | [address] | | + + + + + [...] | + + + + + | [facility] | [address] | [place] [address] | | | SERVICES, CORE | PARK [...] [facility] | [address] | [place] [address] | | | SERVICES, CORE | PARK [...] | | | LABORATORY | | | GIBRALTARIAN | | | SERVICES, | | | [...] + + | [facility] | [address] | [place] [address] | | | SERVICES, CORE | PARK [...] | + + + + + | [facility] | [address] | [place] [address] | | | SERVICES, CORE | VILMA [...] + | [facility] | [address] | [place] [address] | | | SERVICES, CORE | PARK [...] | | | LABORATORY | | | GIBRALTARIAN | | | SERVICES, | | | [...] [facility] | [address] | [place] [address] | | | SERVICES, CORE | PARK [...] | + + + + + | [facility] | [address] | [place] [address] | | | SERVICES, CORE | VILMA [...] [facility] | [address] | [place] [address] | | | SERVICES, CORE | PARK [...] (H) | 70 - 99 mg/dL | [facility] | | | PLASMA | | | [...] | | | LABORATORY | | | GIBRALTARIAN | | | SERVICES, | | | [...] the MDRD equation recommended by the | [facility] | | National Kidney Disease Education [...] | + + + + + | [facility] | [address] | [place] [address] | | | SERVICES, [facility] | [address] | | | + [...] Note | + + | Service Account, [employer] Services Res In Interface - 09/17/2017 11:53 AM [...] | + + + + + | [facility] | [address] | [place] [address] | | | NATALEE WORTHINGTON | VILMA [...] | + + + + + | [facility] | [address] | [place] [address] | | | NATALEE WORTHINGTON | [address]ARK [...] | | | LABORATORY | | | GIBRALTARIAN | | | SERVICES, | | | [...] | + + + + + | [facility] | [address] | [place] [address] | | | SERVICES, CORE | [address] | | | + + + + + X-RAY PORTABLE CHEST PICC LINE CHECK (09/16/2017 1:11 PM PDT) + + | Specimen | + + | | + + + + + | Narrative | Performed At | + + + | EXAM: NV CHEST PICC LINE CHECK HISTORY: PICC placement [...] Note | + + | Service Account, HeribertotenXer In Interface - 09/16/2017 1:34 PM PDT EXAM: NV CHEST | | PICC LINE CHECK HISTORY: [...] At | + + + | EXAM: NV CHEST PICC LINE CHECK HISTORY: Evaluate PICC [...] Account, Kostas Casper In Interface - 09/16/2017 11:41 AM PDT EXAM: NV CHEST | | PICC LINE CHECK HISTORY: [...] [facility] | [address] | [place] [address] | | | NATALEE WORTHINGTON | VILMA [...] | + + + + + | [facility] | [address] | [place] [address] | | | SERVICES, CORE | PARK [...] | | | LABORATORY | | | GIBRALTARIAN | | | SERVICES, | | | [...] | + + + + + | [employer] | [address] | [place] [address] | | | SERVICES, CORE | [address] | | | + + + + + X-RAY PORTABLE CHEST 1 VIEW (09/15/2017 3:28 PM PDT) + + | Specimen | + + | | + + + + + | Narrative | Performed At | + + + | EXAM: NV CHEST 1 VIEW HISTORY: COMPARISON: None. | [...] Note | + + | Service Account, [employer] Services Res In Interface - 09/15/2017 6:45 PM PDT EXAM: NV CHEST 1 | | VIEW HISTORY: COMPARISON: [...] At | + + + | EXAM: NV CHEST PICC LINE CHECK HISTORY: PICC COMPARISON: [...] Interface - 09/15/2017 6:43 PM PDT EXAM: NV CHEST | | PICC LINE CHECK HISTORY: [...] Note Indications:TPN Procedure | | | location: Unit:[facility] Room: [facility] Providers: Attending name: | | | Attending [...] | pause verifies correct patient, procedure, equipment, sales support consultant | | | and site/side marked as [...] | area Basilic vein. Catheter lot number: [id number] with a length of 55 | | [...] | + + + + + | [facility] | [address] | [place] [address] | | | SERVICES, NATALEE | PARK [...] | + + + + + | [facility] | [address] | [place] [address] | | | SERVICES, CORE | [address] [...] | | | LABORATORY | | | GIBRALTARIAN | | | SERVICES, | | | [...] the MDRD equation recommended by the | [facility] | | National Kidney Disease Education [...] | + + + + + | [facility] | [address] | [place] [address] | | | SERVICES, CORE | [address] | | | + + + + + X-RAY SPINE CERVICAL 2 VIEWS (09/14/2017 4:51 PM PDT) + + | Specimen | + + | | + + + + + | Narrative | Performed At | + + + | EXAM: SPINE CERVICAL 2 VIEWS HISTORY: Cervical spine fractures | [facility] | | COMPARISON: 08/31/17 FINDINGS: The upper [...] | + + + + + | [facility] | [address] | [place] [address] | | | NATALEE WORTHINGTON | VILMA [...] | + + + + + | [facility] | [address] | [place] [address] | | | NATALEE WORTHINGTON | PARK [...] | | | LABORATORY | | | GIBRALTARIAN | | | SERVICES, | | | [...] | + + + + + | [facility] | [address] | [place] [address] | | | SERVICES, CORE | PARK [...] [facility] | [address] | [place] [address] | | | NATALEE WORTHINGTON | VILMA [...] | + + + + + | [facility] | [address] | [place] [address] | | | NATALEE WORTHINGTON | PARK [...] | | | LABORATORY | | | GIBRALTARIAN | | | SERVICES, | | | [...] | + + + + + | [employer] [facility] | [address] | [place] [address] | | | SERVICES, CORE | [address] [...] [facility] | [address] | [place] [address] | | | SERVICES, NATALEE | PARK [...] [facility] | [address] | [place] [address] | | | SERVICES, CORE | [address] [...] | | | LABORATORY | | | GIBRALTARIAN | | | SERVICES, | | | [...] the MDRD equation recommended by the | [facility] | | National Kidney Disease Education Program. [...] | + + + + + | [facility] | [address] | [place] [address] | | | NATALEE WORTHINGTON | VILMA [...] [facility] | [address] | [place] [address] | | | SERVICES, CORE | [address] | | | + + + + + MAGNESIUM, PLASMA (09/11/2017 7:12 AM PDT) + +---------+ + + + | Component | Value | Ref Range | Performed | Pathologist | | | | | At | Signature | + +---------+ + + + | MAGNESIUM,P | 2.7 (H) | 1.6 - 2.6 mg/dL | [facility] [...] [facility] | [address] | [place] [address] | | | SERVICES, NATALEE | [address] [...] | | | LABORATORY | | | GIBRALTARIAN | | | SERVICES, | | | [...] | + + + + + | [facility] | [address] | [place] [address] | | | SERVICES, CORE | VILMA [...] | + + + + + | [facility] | [address] | [place] [address] | | | SERVICES, CORE | [address] [...] Note | + + | Service Account, [employer] Services Res In Interface - 09/10/2017 2:31 PM [...] At | + + + | STUDY: NV CHEST 1 VIEW 09/10/17 07:02:01 HISTORY: Possible [...] Note | + + | Service Account, RadiAdayana Res In Interface - 09/10/2017 9:25 AM PDT STUDY: NV CHEST 1 | | VIEW 09/10/17 07:02:01 [...] [facility] | [address] | [place] [address] | | | SERVICES, CORE | PARK [...] [facility] | [address] | [place] [address] | | | SERVICES, CORE | PARK [...] | + + + + + | [facility] | [address] | [place] [address] | | | SERVICES, CORE | PARK [...] [facility] | [address] | [place] [address] | | | SERVICES, CORE | PARK [...] | | | LABORATORY | | | GIBRALTARIAN | | | SERVICES, | | | [...] the MDRD equation recommended by the | [facility] | | National Kidney Disease Education [...] | + + + + + | [facility] | [address] | [place] [address] | | | NATALEE WORTHINGTON | VILMA [...] DEPT OF | [address] | [place], [place] | | | CARDIOLOGY | [address] | [address] | | + + + + + [...] Note | + + | Service Account, [employer] Services Res In Interface - 09/10/2017 11:11 AM [...] [facility] | [address] | [place], [place] | | | HILL, POINT OF CARE | [address] | [address] | | | TESTS | | | [...] [facility] | [address] | [place] [address] | | | SERVICES, NATALEE | [address] [...] [facility] | [address] | [place] [address] | | | SERVICES, CORE | PARK [...] | | | LABORATORY | | | GIBRALTARIAN | | | SERVICES, | | | [...] the MDRD equation recommended by the | [facility] | | National Kidney Disease Education [...] | + + + + + | [facility] | [address] | [place] [address] | | | NATALEE WORTHINGTON | VILMA [...] | 09/06/2107 | LABORATORY | | | ELIN, CORE | + + + + + + + + | Performing | Address | City/State/Zipcode | Phone Number | | Organization | | | | + + + + + | [facility] | [address] | [place] [address] | | | SERVICES, CORE | [address] [...] | | | LABORATORY | | | GIBRALTARIAN | | | SERVICES, | | | [...] [facility] | [address] | [place] [address] | | | SERVICES, CORE | [address]MA [...] | + + + + + | [facility] | [address] | [place] [address] | | | SERVICES, CORE | VILMA [...] [facility] | [address] | [place] [address] | | | SERVICES, CORE | PARK [...] + + + + | [facility] | 473 | ms | [facility] [...] | [facility] | [address] | [place], [place] | | | CARDIOLOGY | [address] | [address] | | + + + + + X-RAY PORTABLE CHEST 1 VIEW (09/07/2017 6:12 AM PDT) + + | Specimen | + + | | + + + + + | Narrative | Performed At | + + + | EXAM: NV CHEST 1 VIEW HISTORY: Post extubation COMPARISON: [...] Note | + + | Service Account, [employer] Res In Interface - 09/07/2017 10:46 AM PDT EXAM: NV CHEST 1 | | VIEWHISTORY: Post extubationCOMPARISON: [...] [facility] | [address] | [place] [address] | | | [facility] [place] | [place] [...] | | | LABORATORY | | | [facility] | | | SERVICES, | | | [...] (H) | 4 - 11 mmol/L | [place] [...] | + + + + + | [facility] | [address] | [place] [address] | | | SERVICES, CORE | VILMA [...] | + + + + + | [facility] | [address] | [place] [address] | | | SERVICES, CORE | VILMA [...] Service Account, Kostas Res In Interface - 09/07/2017 10:46 AM [...] + + + + | [facility] | 537 | ms | [facility] [...] | + + + + + | [facility] | [address] | [place], [place] | | | CARDIOLOGY | [address] | [address] | | + + + + + [...] | | | attempt. Midline lot number [id number]; there was positive blood | | | [...] | | | LABORATORY | | | [facility] | | | SERVICES, | | | [...] LABORATORY | [address] | [place] [address] | | | SERVICES, CORE | PARK [...] | + + + + + | [facility] | [address] | [place] [address] | | | [facility], [facility] | [address] | | | + + + + + X-RAY PORTABLE CHEST 1 VIEW (09/05/2017 5:33 AM PDT) + + | Specimen | + + | | + + + + + | Narrative | Performed At | + + + | EXAM: NV CHEST 1 VIEW HISTORY: Evaluation after chest [...] Note | + + | Service Account, [employer] Res In Interface - 09/05/2017 10:16 AM PDT EXAM: NV CHEST 1 | | VIEW HISTORY: Evaluation [...] | | + +---------+ + + | [facility] | | | | | [...] | + + + + + | [facility] | [address] | [place] [address] | | | SERVICES, CORE | VILMA [...] | + + + + + | [facility] | [address] | [place] [address] | | | SERVICES, CORE | PARK [...] | | | LABORATORY | | | [facility] | | | SERVICES, | | | [...] [facility] | [address] | [place] [address] | | | SERVICES, CORE | PARK [...] | | | LABORATORY | | | [facility] | | | SERVICES, | | | [...] the MDRD equation recommended by the | [facility] | | National Kidney Disease Education Program. [...] | + + + + + | [facility] | [address] | [place] [address] | | | [facility], [facility] | [address] | | | + [...] tomorrow morning. CB Henson Pager / ID: [phone] | | + + + CULTURE, SPUTUM [...] + | [facility] - | [address] | [place] [address] | | | [place] | | | | + + + [...] | + + + + + | [facility] | [address] | [place] [address] | | | SERVICES, CORE | VIL[address] [...] | [facility] | | | GRAVITY | [place] performed by | | LABORATORY | | [...] | + + + + + | [facility] | [address] | [place] [address] | | | SERVICES, NATALEE | PARK [...] | + + + + + | [facility] | [address] | [place] [address] | | | SERVICES, CORE | VILMA [...] [facility] | [address] | [place] [address] | | | SERVICES, CORE | VILMA [...] | + + + + + | [facility] | [address] | [place], [place] | | | CARDIOLOGY | [address] | [address] | | + + + + + X-RAY PORTABLE CHEST 1 VIEW (09/04/2017 7:04 AM PDT) + + | Specimen | + + | | + + + + + | Narrative | Performed At | + + + | EXAM: NV CHEST 1 VIEW HISTORY: Hypoxia. Intubated. | [...] Service Account, Kostas Res In Interface - 09/04/2017 9:49 AM PDT EXAM: NV CHEST 1 | | VIEW HISTORY: Hypoxia. [...] | + + + + + | [facility] | [address] | [place] [address] | | | SERVICES, CORE | VILMA [...] + | [facility] | [address] | [place] [address] | | | SERVICES, CORE | PARK [...] | | | LABORATORY | | | [facility] | | | SERVICES, | | | [...] the MDRD equation recommended by the | [facility] | | National Kidney Disease Education [...] | + + + + + | [facility] | [address] | [place] [address] | | | SERVICES, CORE | PARK [...] [facility] | [address] | [place] [address] | | | ELIN, NATALEE | VILMA [...] - [facility] | [address] | [place], [place] | | | [facility] | [address] | [address] | | | TESTS | | | [...] [facility] | [address] | [place], [place] | | | GLORIA GENAO OF [facility] | [address] | [address] | | | TESTS | | | [...] [facility] | [address] | [place], [place] | | | [facility] | [address] | [address] | | | TESTS | | | [...] [facility] | [address] | [place], [place] | | | [facility] | [address] | [address] | | | TESTS | | | [...] | | + +---------+ + + | [facility] | | | | | VASC [...] detected | AIRPORT - | | | [facility] | + + + + + + + + | Performing | Address | City/State/Zipcode | Phone Number | | Organization | | | | + + + + + | [facility] | [address] | [place] [address] | | | [place] | | | | + + + [...] | + + + + + | [facility] | [address] | [place] [address] | | | SERVICES, CORE | PARK [...] Note | + + | Service Account, Bambeco In Interface - 09/03/2017 9:54 AM PDT [...] | + + + + + | [facility] - | [address] | [place] [address] | | | [place] | | | | + + + [...] [facility] | [address] | [place] [address] | | | SERVICES, CORE | PARK [...] | + + + + + | [facility] | [address] | [place] [address] | | | SERVICES, CORE | VILMA [...] | | | LABORATORY | | | [facility] | | | SERVICES, | | | [...] | + + + + + | [facility] | [address] | [place] [address] | | | SERVICES, CORE | PARK [...] | + + + + + | [facility] | [address] | [place] [address] | | | SERVICES, CORE | [address] | | | + + + + + OPERATION RECORD (09/02/2017 6:53 PM PDT) + + | Procedure Note | + + | Fidelina Shields MD - 09/02/2017 6:53 PM PDT Date of Service: 09/02/2017 | | Attending Surgeon: Fidelina Shields MD Poultry Picker(s): | | Ajay Butts MD, resident. Preoperative [...] ICU in stable condition.Ajay Butts, | | MDMackSHARLENE HinkleK/MODLDD: 09/02/2017 18:15:29DT: 09/02/2017 18:53:52Job #: | | [id number] to federal Medicare and Medicaid regulations I was present for | | the entire procedure.Fidelina Shields MDAssistant ProfessorDepartment of SurgeryOffice: | | [phone]: [id number] has been electronically signed by Fidelina Shields MD, | | 09/03/2017 at 9:11 AM. | | | | | |Fidelina Shields MD | |Cardiovascular Specialist | |Department of Surgery | |Office: [phone] | |Pager: [phone] | | | |This has been electronically [...] | + + + + + | [facility] | [address] | [place] [address] | | | SERVICES, CORE | VILMA [...] | + + + + + | [facility] | [address] | [place] [address] | | | SERVICES, CORE | PARK [...] detected | AIRPORT - | | | [place] | + + + + + + + + | Performing | Address | City/State/Zipcode | Phone Number | | Organization | | | | + + + + + | [facility] | [address] | [place] [address] | | | [place] | | | [...] [facility] | [address] | [place] [address] | | | SERVICES, CORE | PARK [...] | | | LABORATORY | | | [facility] | | | SERVICES, | | | [...] | + + + + + | [facility] | [address] | [place] [address] | | | NATALEE [place] | [address] [...] Note | + + | Service Account, Bambeco In Interface - 09/02/2017 4:25 PM PDT [...] | | | contact: INGRID Butts, Surgery [phone] Pursuant | | | to federal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 Until Sat12/06/17 at 2051, | | | [...]
--- OUTSIDE RECORDS SUMMARY | ~2019-12-20 | XMS | Encounter Summary ---
Demographics + + + | Address | [address] | | | [place] [address] | + + + | Home Phone | | + + + | Preferred Language | Unknown | + + + | Marital Status | Single | + + + | Methodist Affiliation | PEN | + + + | Race | or | + + + | Ethnic Group | Not or | + + + Author + + + | Author | [facility] | + + + | Organization | [facility] [employer] [facility] | + + + | Address | Unknown | + + + | Phone | Unavailable | + + + Support + + +---------+ + | Name | Relationship | Address | Phone | + + +---------+ + | Kaylie Baig | ECON | Unknown | | + + +---------+ + Care Team Providers + +------+ + | Care Center[facility] Grinding Machine Adjuster Name | Role | Phone | + +------+ + | No Pcp Per Patient | PCP | Unavailable | + +------+ + Encounter Details +--------+ + + + + | Date | Type | Department | Care Team | Description | +--------+ + + + + | 10/24/ | Procedure | [address] | | | | 2018 | Pass | [address] | | | | | | [address] [facility] | | | | | | Hospital Admitting | | | | | | Desk Located on the | | | | | | 9th floor | | | | | | [place], [place] | | | | | | [address] | | | +--------+ + + + [...]
--- OUTSIDE RECORDS SUMMARY | ~2019-12-20 | XMS | Encounter Summary ---
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 05/15 after being seen at [facility] on the same day. His chief complaint was headache, dizziness and weakness. He suffered a fall in the emergency department here at [facility]. 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 | | | [id number] | | | or go | | [...] | | | Dates | | | [place] | | | | | | Neighb [...] + | NIALL [facility]CR[facility] | [address] | [place] [address] | | | [facility] | | | | | LABORATORY [...] + | NIALL ANDREWS | [address] | [place] [address] | | | [facility] | | | | | LABORATORY | [...] + + | [facility] | [address] | [place] [address] | | | [facility] | [...] [address] | [place] [address] | | | [facility] | | | | | LABORATORY [...] + + + | Glucose | 98Comment: Nepalese | 65 - 99 mg/dL | [facility] [...] + + | NIALL ANDREWS | [address] | [place] [address] | | | [facility] | | | | | LABORATORY | | | | + + + + + Hemoglobin A1C (03/18/2017 4:17 AM PST) + + + + + + | Component | Value | Ref Range | Performed | Pathologist | | | | | At | Signature | + + + + + + | Hemoglobin | 5.2Comment: The Nepalese | 4.3 - 6.1 % | [facility] [...] + | [facility]CRMIKE | [address] | [place] [address] | | | [facility] | | | | | LABORATORY | [...] + | NIALL ANDREWS | [address] | [place] [address] | | | [facility] | | | | | LABORATORY | [...] + | [facility] | [address] | [place] [address] | | | [facility] | [...] + + | Glucose | 198 (H)Comment: Nepalese | 65 - 99 mg/dL | [facility] | | | | Diabetes Association | [...] | | | | failure.For | | SCOOBA | | | | Americans, multiply the [...] + + | [facility] | [address] | [place] [address] | | | [facility] | | | | | LABORATORY [...] + | NIALL ANDREWS | [address] | [place] [address] | | | [facility] | | | | | LABORATORY | [...] + | [facility]CR[facility] | [address] | [place] [address] | | | [facility] | [...] + + | COYE JULIANA | [address] | [place] [address] | | | [facility] | | | | | LABORATORY | [...] - 1.030 | [facility] | | | [place] | | | [facility]CRED | | | [...] + + | NIALL ANDREWS | [address] | [place] [address] | | | [facility] | | | | | LABORATORY | [...] + + | NIALL ANDREWS | [address] | [place] [address] | | | [facility] | | | | | LABORATORY | [...] + + | NIALL ANDREWS | [address] | [place] [address] | | | [facility] | | | | | LABORATORY | [...] + + | Glucose | 125 (H)Comment: Nepalese | 65 - 99 mg/dL | [facility] [...] + + | NIALL ANDREWS | [address] | [place] [address] | | | [facility] | | | | | LABORATORY | [...] + + | [facility] | [address] | [place] [address] | | | [facility] | | | | | LABORATORY | [...] | | | | | | use [place] 10/325 if ordered. If | | | [...] | | | | | | use [place] 10/325 if ordered. If | | | [...] scheduled: AC, | | | NPO, Daytime [id number] Use NIGHT | | | DOSE for doses scheduled: | | | HS, 3AM, Nighttime [id number] Only | | | for use with [...]
--- OUTSIDE RECORDS SUMMARY | ~2019-12-20 | XMS | Encounter Summary ---
Demographics + + + | Address | [address] | | | [place] [address] | + + + | Home Phone [...] + + + | Author | [facility] [employer] [facility] | + + + | Organization | [facility] [employer] [facility] | + [...] Team Providers + +------+ + | Care Siding Applicator Name | Role | Phone | + [...] | | | | Rd [facility] | | | | | | Hospital Admitting | | | | | | Desk Located on the | | | | | | 9th floor | | | | | | [place], [place] | | | | | | [address] | | | +--------+ + + + [...]
--- OUTSIDE RECORDS SUMMARY | ~2019-12-20 | XMS | Encounter Summary ---
Demographics + + + | Address | [address] | | | [place] [address] | + + + | Home Phone | | + + + | Preferred Language | Unknown | + + + | Marital Status | Single | + + + | Muslim Affiliation | PEN | + + + | Race | or | + + + | Ethnic Group | Not or | + + + Author + + + | Author | [facility] [employer] [facility] | + + + | Organization | [facility] [employer] [facility] [...] Team Providers + +------+ + | Care Precision Lens Grinder Apprentice Name | Role | Phone | + +------+ + | No Pcp Per Patient | PCP | Unavailable | + +------+ + Encounter Details +--------+ + + + + | Date | Type | Department | Care Team | Description | +--------+ + + + + | 09/24/ | Procedure | Diagnostic Imaging | | | | 2017 | Pass | Services at [facility] | | | | | | [address] | | | | | | [place] | | | | | | [facility] | | | | | | [place], [place] | | | | | | [address] | | | | | | [phone] | | | +--------+ + + + [...]
--- OUTSIDE RECORDS SUMMARY | ~2019-12-20 | XMS | Encounter Summary ---
Demographics + + + | Address | [address] | | | [place] [address] | + + + | Home Phone [...] | Author | [facility] [employer] [facility] | + + + | Organization | [facility] [employer] [facility] | + + + | Address | Unknown | + + + | Phone | Unavailable | + + + Support + + +---------+ + | Name | Relationship | Address | Phone | + + +---------+ + | Kaylie Baig | ECON | Unknown | | + + +---------+ + Care Team Providers + +------+ + | Care Wire Welder Name | Role | Phone | + [...] | | | | | | Rd [facility] | | | | | | Hospital Admitting | | | | | | Desk Located on the | | | | | | 9th floor | | | | | | [place], [place] | | | | | | [address] | | | +--------+ + + + [...]
--- OUTSIDE RECORDS SUMMARY | ~2019-12-20 | XMS | Encounter Summary ---
Demographics + + + | Address | [address] | | | [place] [address] | + + + | Home Phone [...] + | Author | [facility] [employer] [facility] | + + + | Organization | [facility] [employer] [facility] | + [...] Team Providers + +------+ + | Care Assistant Education Director Name | Role | Phone | + +------+ + | No Pcp Per Patient | PCP | Unavailable | + +------+ + Encounter Details +--------+ + + + + | Date | Type | Department | Care Team | Description | +--------+ + + + + | 08/31/ | Procedure | Diagnostic Imaging | | | | 2018 | Pass | Services at [facility] | | | | | | [address] | | | | | | [place] | | | | | | [facility] | | | | | | [place], [place] | | | | | | [address] | | | | | | [phone] | | | +--------+ + + + [...]
--- OUTSIDE RECORDS SUMMARY | ~2019-12-20 | XMS | Encounter Summary ---
Demographics + + + | Address | [address] | | | [place] [address] | + + + | Home Phone [...] Author + + + | Author | [facility] | + + + | Organization | [facility] [facility] | + + + | Address | Unknown | + + + | Phone | Unavailable | + + + Support + + +---------+ + | Name | Relationship | Address | Phone | + + +---------+ + | Kaylie Baig | ECON | Unknown | | + + +---------+ + Care Team Providers + +------+ + | Care Strategic Partnership Representative Name | Role | Phone | + [...] 2018 | Pass | Services at [facility] | | | | | | [address] | | | | | | [place] | | | | | | [facility], [address] [place] [address] | | | | | | [place], [place] | | | | | | [address] | | | | | | [phone] | | | +--------+ + + + [...]
--- OUTSIDE RECORDS SUMMARY | ~2019-12-20 | XMS | Encounter Summary ---
Demographics + + + | Address | [address] | | | [place] [address] | + + + | Home Phone [...] + + | Author | [facility] | + + + | Organization | [facility] [facility] | + + + | Address | Unknown | + + + | Phone | Unavailable | + + + Support + + +---------+ + | Name | Relationship | Address | Phone | + + +---------+ + | Kaylie Baig | ECON | Unknown | | + + +---------+ + Care Team Providers + +------+ + | Care Relationship Counselor Name | Role | Phone | [...] | | | | | | Rd [facility] | | | | | | Hospital Admitting | | | | | | Desk Located on the | | | | | | 9th floor | | | | | | [place], [place] | | | | | | [address] | | | +--------+ + + + [...]
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
--- OUTSIDE RECORDS SUMMARY | ~2019-12-20 | XMS | Encounter Summary ---
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 with synthetic cranioplasty a nd significant encephalomalacia with extraaxial collection with layering acute blood product s. CT spine shows multiple fractures with most concerning fracture at C7 lamina with canal i ntrusion. 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 -Developed drainage from previous crani site on 09/23 and concern for possible neuro exam ch sonny. Repeat imaging was stable. Wound sutured at bedside, but now with recurrent wound disc harge. - proceed to OR today for revision - AEDs per primary team or Neurology Sami Maldonado MD Neurosurgery, PGY-2 On-call resident pager [phone] 7:33 AM 10/10/2017 Dallin Deshpande MD - [...] agent? No Dallin Bourgeois MD Neurosurgery PGY1 [phone] riva, Venita Rod PA-C - 10/09/2017 12:57 PM [...] - patient unable to come out of WIRELESS SALES MANAGER for now - Will likely need for [...] previous cranioplasty site. Venita Pruitt PA-C [place] [phone] [place] [phone] [facility] [place] [address] [place] [address] Associated attestation - Chaz Hernandez MD - 10/09/2017 3:04 PM PDTI saw and examined th e patient today with Venita Pruitt PA-C, and agree with the assessement and plan as outlined in her note. Plan takeback with NSG, we will place Gabriel-oconnor feeding tube at that time. Chaz Hernandez MD, FACS Hydraulic Barker Operator, Trauma, Critical Care and Acute Care Surgery Sherine Sarmiento, [facility] - 10/08/2017 6:21 AM PDTFormatting of this [...] - patient unable to come out of WIRELESS SALES MANAGER for now - Will likely need for [...] by patient, but wound remains cl zeferino/dry/intact. Hebron removed 09/17. #Left hemothorax Chest tube placed [...] [place] [phone] [facility] & [place] [address] [place] [address] [phone] Associated attestation - Chaz Hernandez MD - 10/08/2017 12:16 PM PDTI saw and examined th e patient today with KESHAWN Martin, and agree with the assessement and plan a s outlined in her note. No acute events. Seems to be slowly improving from MS. Appreciate ps ychiatry recs. Chaz Hernandez MD, FACS Hydraulic Barker Operator, Trauma, Critical Care and Acute Care [...] - patient unable to come out fo WIRELESS SALES MANAGER for now - Will likely need for [...] by patient, but wound remains cl zeferino/dry/intact. Efrnandez removed 09/17. #Left hemothorax Chest tube placed [...] [place] [phone] [facility] [place] [address] [place] [address] [phone] Associated attestation - Chaz Hernandez MD - 10/07/2017 11:15 AM PDTI saw and examined th e patient today with KESHAWN Martin, and agree with the assessement and plan a s outlined in her note. Will consider changing to bolus TF. Plan Gabriel-oconnor tube next week. Chaz Hernandez MD, FACS Hydraulic Barker Operator, Trauma, Critical Care and Acute Care [...] p atient unable to come out fo WIRELESS SALES MANAGER for now Resolved or chronic issues/Plan: #Previous [...] issues, including restraints. Venita Pruitt PA-C [place] [phone] [place] [phone] [facility] [address] [place] [address] [phone] Associated attestation - Em Cunningham MD - 10/17/2017 10:13 AM PDTI was present and rou nded with the Advanced Practice Provider today . I interviewed and examined the patient. I reviewed the history, as documented today. I agree with the ASHLEY assessment and plan. TBI has remained stable. On lovenox. Will continue haldol per psych.. EM CUNNINGHAM MD [facility] [address] [place] [address] [address] [place] [address] Venita Pruitt PA-C - 10/05/2017 8:38 AM [...] p atient unable to come out fo WIRELESS SALES MANAGER for now Resolved or chronic issues/Plan: #Previous [...] by patient, but wound remains duke n/dry/intact. Hebron removed 09/17. #Left hemothorax Chest tube placed [...] issues, including restraints. Venita Pruitt PA-C [place] [phone] [facility] & [place] [address] [place] [phone] Associated attestation - Shlomo Bravo MD - 10/06/2017 7:28 AM PDTFormatting of this note m ight be different from the original. I saw and examined Diogenes Temple ([id number]) with the TRAUMA team on 10/05/2017. I [...] and incen tive spirometry for pulmonary toliet. corridor redevelopment manager for disposition planning and placement. Shlomo Bravo MD Recreation Aide Division of Trauma and Critical Care Venita [...] (baseline from previous TBI ) Neck: in Emma collar Respiratory: CTA b.l CV: RRR GI: [...] p atient unable to come out fo WIRELESS SALES MANAGER for now Resolved or chronic issues/Plan: #Previous [...] by patient, but wound remains duke n/dry/intact. Hebron removed 09/17. #Left hemothorax Chest tube placed [...] issues, including restraints. Venita Pruitt PA-C [place] [phone] [facility] & [address] [place] [address] [phone] Associated attestation - Fidelina Shields MD - [...] and only enteral access. Fidelina Shields MD Hydraulic Barker Operator Division of Trauma, Critical Care and Acute Care Surgery Office: [phone] Pager: [phone] Leonor Torres ACNP - 10/03/2017 3:13 PM [...] (baseline from previous TBI ) Neck: in Emma collar Respiratory: CTA bilaterally, no distress CV: [...] p atient unable to come out fo WIRELESS SALES MANAGER for now Resolved or chronic issues/Plan: Previous [...] by patient, but wound remains duke n/dry/intact. Hebron removed 09/17. #Left hemothorax Chest tube placed [...] PDTAttending: I saw and examined Diogenes Temple ([id number]) with CB Hair on morning rounds 10/03 and agree with the assessment and plan as outlined in this note and participated in the planning of care. Mental status is slightly better, remains sedated but he is interactive and at least somewh at oriented. Enteral nutrition advancing and, as approaches goal, will turn TPN off. Place ment remains a significant issue. Fidelina Shields MD Hydraulic Barker Operator Division of Trauma, Critical Care and Acute Care Surgery Office: [phone] Pager: [phone] July Harp PA-C - 10/03/2017 12:58 PM [...] the C-collar when in bed then the WIRELESS SALES MANAGER when out of bed until 12/01/17. JULY HARP PA-C [facility] [address] [place] [address] Associated attestation - Magdiel Stock MD - 10/04/2017 6:02 PM PDTI performed a history a nd physical examination of the patient and discussed the management with the advanced practi ce provider, July Harp PA-C. I reviewed the advanced practice provider's note and agree w ith the plan of care as documented. Continue cervical collar and WIRELESS SALES MANAGER for 3 months to ensure fracture healing and prevent development of post-fracture cervical kyphosis. Magdiel Stock MD Hydraulic Barker Operator Department of Neurological Surgery [facility] [place] Sherine Sarmiento [facility] - 10/02/2017 12:54 PM PDTFormatting of this [...] (baseline from previous TBI ) Neck: in Emma collar Respiratory: CTA bilaterally, lungs symmetrical, equal chest wall rise, no retractions CV: RRR GI: non tender, soft, active BS, last BM 09/30 : Patient voiding without difficulty Extremities: no peripheral edema, wiggles toes and toes pink and well perfused Musculoskeletal: 5/5 outreach representative strength on right, 3/5 outreach representative strength on left FEN: on TPN, [...] AMS & delirium - numerous evaluations by PRETZEL TWISTING MACHINE OPERATOR with trials of PO - now s/p [...] . - C-collar at all times, use WIRELESS SALES MANAGER when OOB - Follow-up with Neurosurgery on 10/21 with repeat X-rays #Blunt abdominal trauma #Splenic laceration S/p laparotomies x2. Fascia closed 09/02 Wound vac removed by patient, but wound remains duke n/dry/intact. Hebron removed 09/17. #Left hemothorax Chest tube placed [...] will decrease [place]g [phone] Associated attestation - Fidelina Shields MD - 10/02/2017 4:40 PM PDTAttending: I saw and examined Diogenes Temple ([id number]) with KESHAWN Alexander on mornin g rounds [...] drawn back to midline position. May need intermediate accountant enteral access , but is ~4 weeks s/p damage control laparotomy and risk is higher now than it will be in 7- 14 days and if swallow is not improving then will place prior to DC Fidelina Shields MD Hydraulic Barker Operator Division of Trauma, Critical Care and Acute Care Surgery Office: [phone] Pager: [phone] Sherine Sarmiento AGACNP - 10/01/2017 7:27 AM [...] (baseline from previous TBI ) Neck: in Emma collar Respiratory: CTA bilaterally, lungs symmetrical, equal chest wall rise, no retractions CV: RRR GI: non tender, soft, active BS, last BM 09/30 : Patient voiding without difficulty Extremities: no peripheral edema, wiggles toes and toes pink and well perfused Musculoskeletal: 5/5 outreach representative strength on right, 3/5 outreach representative strength on left FEN: on TPN [...] AMS & delirium - numerous evaluations by PRETZEL TWISTING MACHINE OPERATOR with trials of PO - now s/p modified barium swallow x2 which indicates aspiration - continue NPO - PRETZEL TWISTING MACHINE OPERATOR reports that patient working on tongue strength [...] . - C-collar at all times, use WIRELESS SALES MANAGER when OOB - Follow-up with Neurosurgery on 10/21 with repeat X-rays #Blunt abdominal trauma #Splenic laceration S/p laparotomies x2. Fascia closed 09/02 Wound vac removed by patient, but wound remains duke n/dry/intact. Hebron removed 09/17. #Left hemothorax Chest tube placed [...] trauma team and [place]g [phone] Associated attestation - Fidelina Shields MD - 10/02/2017 4:40 PM PDTAttending: I saw and examined Diogenes Temple ([id number]) with KESHAWN Alexander on mornin g rounds 10/01/17 and agree with the assessment and plan as outlined in this note and partic ipated in the planning of care. Will trial DHT placement today, CT head unchanged. Suspect somnolence is medication side ef fect and, if persistent, may need to wean antipsychotic doses. Fidelina Shields MD Hydraulic Barker Operator Division of Trauma, Critical Care and Acute Care Surgery Office: [phone] Pager: [phone] Christian Kelley PA-C - 09/30/2017 12:21 PM [...] Fixed and dilated on left Neck: in Emma collar Respiratory: CTA bilaterally, lungs symmetrical, equal chest wall rise, no retractions CV: RRR GI: non tender, soft, active BS, last BM 09/30 : Patient voiding without difficulty Extremities: no peripheral edema, wiggles toes and toes pink and well perfused Musculoskeletal: 5/5 outreach representative strength on right, 3/5 outreach representative strength on left FEN: on TPN [...] AMS & delirium - numerous evaluations by PRETZEL TWISTING MACHINE OPERATOR with trials of PO - now s/p modified barium swallow x2 which indicates aspiration - continue NPO - PRETZEL TWISTING MACHINE OPERATOR reports that patient working on tongue strength [...] . - C-collar at all times, use WIRELESS SALES MANAGER when OOB - Follow-up with Neurosurgery on [...] PDTAttending: I saw and examined Diogenes Temple ([id number]) with Christian Kelley PA-C on morning rounds 09/30 and agree with the assessment and plan as outlined in this note and participated in the planning of care. Mentally slower this morning, but non-focal. Received haldol overnight for sleep. Repeat head CT was unchanged so suspect etiology of slowed responsiveness is the antipsychotic dose . PRETZEL TWISTING MACHINE OPERATOR believes that, once collar off, may be able to take PO more effectively and thus will hold off on surgical feeding access. TPN is a temporary solution and if patient remains kaye nable will trial DHT tomorrow. Working with psychiatry for medication recommendations. Fidelina Shields MD Hydraulic Barker Operator Division of Trauma, Critical Care and Acute Care Surgery Office: [phone] Pager: [phone] July Harp PA-C - 09/30/2017 8:23 AM PDTBrief Neurosurgery Wound Check: Wound is dry, without erythema, not fluctuant. No acute swelling. Nylon in place. Will plan to follow peripherally for wound checks and remove nylons on 10/09. JULY HARP PA-C [facility] [address] [place] [address] Christian Begum PA-C - 09/29/2017 7:15 AM [...] and EOMs intact to exam Neck: in Emma collar Respiratory: CTA bilaterally, lungs symmetrical, equal [...] AMS & delirium - numerous evaluations by PRETZEL TWISTING MACHINE OPERATOR with trials of PO - now s/p [...] . - C-collar at all times, use WIRELESS SALES MANAGER when OOB - Follow-up with Neurosurgery on [...] PDTAttending: I saw and examined Diogenes Temple ([id number]) with Christian Kelley PA-C on morning rounds 09/29 and agree with the assessment and plan as outlined in this note and participated in the planning of care. Late entry for 09/29/17. Persistent alterations in conscious and dysphagia. Hopefully with ongoing speech therapy a nd when clear to take c-collar off, will improve ability to take PO. While TPN is not an opt imal longterm strategy, would prefer not to place surgical feeding tube if possible given r elatively recent damage control laparotomy and high risk of Mr. Temple pulling it out. Have tried DHT several times and it seems to worsen delirium and he pulls it out frequently. Tit ration of haldol in conjunction with psychiatry. Fidelina Shields MD Hydraulic Barker Operator Division of Trauma, Critical Care and Acute Care Surgery Office: [phone] Pager: [phone] Christian Kelley PA-C - 09/28/2017 1:01 PM [...] he said, who, ariel? And then the DISABILITY SERVICES COORDINATOR helped him make a call to her. [...] and EOMs intact to exam Neck: in Emma collar Respiratory: CTA bilaterally, lungs symmetrical, equal [...] very agitated today. - EKG today with [place] QTc calculated to be 428 - optimize [...] AMS & delirium - numerous evaluations by PRETZEL TWISTING MACHINE OPERATOR with trials of PO - now s/p [...] . - C-collar at all times, use WIRELESS SALES MANAGER when OOB - Follow-up with Neurosurgery on 10/21 with repeat X-rays #Blunt abdominal trauma #Splenic laceration S/p laparotomies x2. Fascia closed 09/02 Wound vac removed by patient, but wound remains duke n/dry/intact. Hebron removed 09/17. #Left hemothorax Chest tube placed [...] more toda y. Chaz Hernandez MD, FACS Hydraulic Barker Operator, Trauma, Critical Care and Acute Care Surgery Chaz Hernandez MD - 09/28/2017 10:13 AM PDTTrauma Staff Seen and examined this AM with team. I have concerns abotu behaviour, as he is consistently threatening RN and ancillary staff, even attempting swings. Behavior seems worse at night. I would favor increasing night time Haldol dose, and following EKGs. Chaz Hernandez MD, FACS Hydraulic Barker Operator, Trauma, Critical Care and Acute Care [...] Dallin Bourgeois MD Neurosurgery PGY1 | Pager #[phone] Christian Begum PA-C - 09/27/2017 7:31 AM [...] able to have a linear conversation briefly PRETZEL TWISTING MACHINE OPERATOR requesting repeat barium swallow Current meds: I [...] incision healing , suture c/d/I Neck: in WIRELESS SALES MANAGER Respiratory: unlabored on room air, lungs symmetrical, [...] AMS & delirium - numerous evaluations by PRETZEL TWISTING MACHINE OPERATOR with trials of PO - now s/p [...] . - C-collar at all times, use WIRELESS SALES MANAGER when OOB - Follow-up with Neurosurgery on [...] cotinue TPN for now. EM CUNNINGHAM MD [facility] [address] [place] [address] Christian Kelley PA-C - 09/26/2017 6:48 AM [...] posterior scalp crani incision c/d/I Neck: in Emma collar Respiratory: unlabored on room air CV: [...] AMS & delirium - numerous evaluations by PRETZEL TWISTING MACHINE OPERATOR with trials of PO - now s/p [...] . - C-collar at all times, use WIRELESS SALES MANAGER when OOB - Follow-up with Neurosurgery on 10/21 with repeat X-rays #Blunt abdominal trauma #Splenic laceration S/p laparotomies x2. Fascia closed 09/02 Wound vac removed by patient, but wound remains duke n/dry/intact. Hebron removed 09/17. #Left hemothorax Chest tube placed [...] Continue NPO and TPN. EM CUNNINGHAM MD [facility] [address] [place] [address] Christian Kelley PA-C - 09/25/2017 7:49 AM [...] HEENT: EOMs intact to exam Neck: in WIRELESS SALES MANAGER brace Respiratory: unlabored on room air CV: [...] AMS & delirium - numerous evaluations by PRETZEL TWISTING MACHINE OPERATOR with trials of PO - now s/p [...] . - C-collar at all times, use WIRELESS SALES MANAGER when OOB - Follow-up with Neurosurgery on [...] LFTS wnl. Continue TPN. EM CUNNINGHAM MD [facility] [address] [place] [address] Christian Kelley PA-C - 09/24/2017 11:07 AM [...] with agitation Having difficulty swallowing again - PRETZEL TWISTING MACHINE OPERATOR to re-eval and obtain barium swallow Current [...] HEENT: EOMs intact to exam Neck: in WIRELESS SALES MANAGER brace Respiratory: CTA bilaterally, lungs symmetrical, equal chest wall rise, no retractions CV: RRR GI: non distended, last BM 09/23 : good urine output Extremities: SCD's in place, no peripheral edema, wiggles toes and toes pink and well perfu sed Musculoskeletal: 5/5 strength in bilateral outreach representative (but with slightly weaker on left) [...] PRN seroquel dose QHS for insomnia/restlessness at [facility] - Haldol 5mg q12hr prn for severe [...] likely 2/2 AMS & delirium - Failed PRETZEL TWISTING MACHINE OPERATOR eval 09/19 & 09/20, made NPO & dobhoff reinserted 09/21 but pulled overnight - Per PRETZEL TWISTING MACHINE OPERATOR on 09/21, ok for therapeutic pureed with [...] . - C-collar at all times, use WIRELESS SALES MANAGER when OOB - Follow-up with Neurosurgery on 10/21 with repeat X-rays #Blunt abdominal trauma #Splenic laceration S/p laparotomies x2. Fascia closed 09/02 Wound vac removed by patient, but wound remains duke n/dry/intact. Hebron removed 09/17. #Left hemothorax Chest tube placed [...] Start abx for dehiscence. EM CUNNINGHAM MD [facility] [address] [place] [address] Ginette Campos PA-C - 09/24/2017 9:31 AM [...] 4 extremities Unable to assess drift. Motor: Commercial Lending Vice President Bicep Tricep Delt R 5 5 5 [...] further questions or concerns. Ginette Campos PA-C [facility] [address] [place] [address] [facility] Center[facility] AGAEDUIN - 09/23/2017 6:32 AM PDT Trauma Acute [...] hiscence, draining minimal serosang fluid Neck: in WIRELESS SALES MANAGER brace Respiratory: unlabored on room air CV: [...] PRN seroquel dose QHS for insomnia/restlessness at [facility] - Repeat ECG 09/22 with QTc WNL. [...] likely 2/2 AMS & delirium - Failed PRETZEL TWISTING MACHINE OPERATOR eval 09/19 & 09/20, made NPO & dobhoff reinserted 09/21 but pulled overnight - Per PRETZEL TWISTING MACHINE OPERATOR on 09/21, ok for therapeutic pureed with [...] . - C-collar at all times, use WIRELESS SALES MANAGER when OOB - Follow-up with Neurosurgery on [...] ium improves Sherine Sarmiento, [facility] Pg [phone] Dallin Deshpande MD - 09/22/2017 8:03 AM [...] Dallin Bourgeois MD Neurosurgery PGY1 | Pager #[phone] ELLMilly Sherine Madiha, AGACNP - 09/22/2017 6:52 AM PDTFormatting of [...] 24hr events: - Therapeutic purees initiated by PRETZEL TWISTING MACHINE OPERATOR yesterday - Trickle feeds via Dobbhoff, pt pulled Dobbhoff yesterday evening- not replaced - WOOD GOUGER called around 2130 for new left facial droop (see separate notes), CT revealed increa se in SDH from 12 to 17mm with no change in midline shift. [facility] and stroke team [...] sluggish. Slight left facial droop Neck: in Emma collar Respiratory: unlabored on room air CV: [...] PRN seroquel dose QHS for insomnia/restlessness at [facility]- - Repeat ECG 09/22 with Q Tc WNL. - Haldol 5mg q12hr prn for severe agitation #Substance abuse, concern for Alcohol withdrawal - CIWA discontinued 09/08, not scoring. - Thiamine & folate started 09/21 #Dysphagia, risk for aspiration #Protein calorie malnutirtion - likely 2/2 AMS & delirium - Failed PRETZEL TWISTING MACHINE OPERATOR eval 09/19 & 09/20, made NPO & dobhoff reinserted 09/21 but pulled overnight - Per PRETZEL TWISTING MACHINE OPERATOR on 09/21, ok for therapeutic pureed with [...] . - C-collar at all times, use WIRELESS SALES MANAGER when OOB - Follow-up with Neurosurgery on [...] delirium improves Sherine Sarmiento, [facility] [place] [phone] Associated attestation - Nubia Nieto MD,MPH - [...] Critical Care & Acute Care Surgery [facility] [phone] Sami Black - 09/21/2017 10:25 PM PDTBrief [...] in the morning. Plan: -neuro checks; page [phone] for any decline in neurological examination -pain control -Hard C collar at all times and place WIRELESS SALES MANAGER prior to mobilizing OOB. Anticipated duration of Collar/WIRELESS SALES MANAGER is 12 weeks -repeat CT head for any new decline in neurological exam and page [phone] -NPO at midnight tonight -please hold tonight's planned dose of Lovenox -further recommendations in the morning Sami Black MD, PhD PGY-3 Resident Neurosurgery [id number] signed by Sami Black at 09/21/2017 10:50 PM PDTCleSherine estrella [facility]FR[facility] - 09/21/2017 7:10 AM PDTFormatting of [...] Provena placem ent 24hr events: - Failed PRETZEL TWISTING MACHINE OPERATOR eval again yest morning, continued NPO - [...] reactive. Dobbhoff tube in place Neck: in Emma collar Respiratory: unlabored on room air CV: [...] likely 2/2 AMS & delirium - Failed PRETZEL TWISTING MACHINE OPERATOR eval 09/19 & 09/20, made NPO & dobhoff reinserted yesterday - Trickle feeds started this am at 20ml/hr, increase very slowly by 10ml every 12 hrs to go al of 75 due to hx of mesenteric hematomas and previous inability to tolerate TF - Per PRETZEL TWISTING MACHINE OPERATOR today, ok for therapeutic pureed with nectar [...] . - C-collar at all times, use WIRELESS SALES MANAGER when OOB - Follow-up with Neurosurgery on [...] & delirium [place]g [phone] Associated attestation - Fidelina Shields MD - 09/21/2017 9:36 PM PDTAttending: I saw and examined Diogenes Temple ([id number]) with KESHAWN Alexander on mornin g rounds [...] enough to re-trial PO. Fidelina Shields MD Hydraulic Barker Operator Division of Trauma, Critical Care and Acute Care Surgery Office: [phone] Pager: [phone] Sherine Sarmiento AGACNP - 09/20/2017 7:41 AM [...] haldol given yesterday afternoon for agitation - PRETZEL TWISTING MACHINE OPERATOR paged to re-eval in afternoon after concern for aspiration, made NPO by PRETZEL TWISTING MACHINE OPERATOR - DARNELL SOLANO Current meds: I have [...] right pupil 3 and reactive Neck: in Emma collar Respiratory: unlabored on room air CV: [...] thick/pureed d iet. Made NPO yesterday by PRETZEL TWISTING MACHINE OPERATOR after concern for aspiration. This is likely 2/2 waxing & wan ing delirium & AMS - PRETZEL TWISTING MACHINE OPERATOR re-eval today recommend continue NPO d/t overt clinical signs of aspiration - Place Dobbhoff tube and restart feeds, slowly progress to goal - Stop TPN when tolerating tube feeds - PRETZEL TWISTING MACHINE OPERATOR will follow closely, as his AMS improves [...] . - C-collar at all times, use WIRELESS SALES MANAGER when OOB - Follow-up with Neurosurgery on [...] & delir[place] [phone] Associated attestation - Fidelina Shields MD - 09/20/2017 9:34 PM PDTAttending: I saw and examined Diogenes Temple ([id number]) with KESHAWN Alexander on mornin g rounds [...] dispo planning when able. Fidelina Shields MD Hydraulic Barker Operator Division of Trauma, Critical Care and Acute Care Surgery Office: [phone] Pager: [phone] Mary Medrano MD,MPH - 09/19/2017 6:22 AM [...] downgraded from thin to thick liquids by PRETZEL TWISTING MACHINE OPERATOR Current meds: I have independently reviewed current [...] intact, small Right fluctuant pseudomeningocele Neck: in Emma collar Respiratory: unlabored on room air CV: [...] DHT on09/19. - Cleared for diet by PRETZEL TWISTING MACHINE OPERATOR, tolerating purees, 749 Calories yesterday - Restart Calorie count: if taking >700 again will be OK for full po diet, otherwise replac e DHT and restart TF - Stop TPN tomorrow regardless - Still considering repeat CT abdomen/pelvis #Dysphagia DHTreplaced overnight 09/07. TF held due to emesis and possible ileus, aspiration risk. DH T pulled overnight on 09/18 - PRETZEL TWISTING MACHINE OPERATOR as able Resolved or chronic issues/Plan: #BIG 3 TBI #Right synthetic cranioplasty Neurosurgery consulted. Non-operative management. Last head CT 09/12 stable. Expected pseudo meningocele. Left-sided deficits consistent with baseline. - Stat head CT for any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 NATALEE WORTHINGTON | VILMA [...] | | | LABORATORY | | | [place] | | | SERVICES, | | | [...] [facility] | [address] | [place] [address] | | | SERVICES, CORE | [address] [...] [facility] | [address] | [place] [address] | | | SERVICES, CORE | P[address] [...] | | | LABORATORY | | | [place] | | | SERVICES, | | | [...] the MDRD equation recommended by the | [facility] | | National Kidney Disease Education Program. [...] | + + + + + | [facility] | [address] | [place] [address] | | | NATALEE WORTHINGTON | VILMA [...] Note | + + | Service Account, [employer] In Interface - 11/08/2017 2:31 PM [...] [facility] | [address] | [place] [address] | | | ELIN, NATALEE | [address] [...] | | | LABORATORY | | | [place] | | | SERVICES, | | | [...] | + + + + + | [facility] | [address] | [place] [address] | | | SERVICES, CORE | VILMA [...] DEPT OF | [address] | [place], [place] | | | CARDIOLOGY | [address] | [address] | | + + + + + [...] DEPT OF | [address] | [place], [place] | | | CARDIOLOGY | [address] | [address] | | + + + + + [...] | | | LABORATORY | | | [place] | | | SERVICES, | | | [...] | + + + + + | [facility] | [address] | [place] [address] | | | SERVICES, CORE | VILMA [...] | + + + + + | [facility] | [address] | [place] [address] | | | SERVICES, CORE | PARK [...] + + + + | PRODUCT | [id number] | | [facility] | | | UNIT [...] + + + + | EXPIRATION | [id number] | | [facility] | | | DATE [...] + + + + | BLOOD | [id number] | | [facility] | | | PRODUCT [...] | + + + + + | [facility] | [address] | [place] [address] | | | SERVICES, | [address] [...] + + + + | PRODUCT | [id number] | | [facility] | | | UNIT [...] + + + + | EXPIRATION | [id number] | | [facility] | | | DATE [...] + + + + | BLOOD | [id number] | | [facility] | | | PRODUCT [...] | + + + + + | [facility] | [address] | [place] [address] | | | SERVICES, | [address] [...] | + + + + + | [facility] | [address] | [place] [address] | | | SERVICES, NATALEE | VILMA [...] [facility] | [address] | [place] [address] | | | SERVICES, NATALEE | VILMA [...] | | | LABORATORY | | | [place] | | | SERVICES, | | | [...] [facility] | [address] | [place] [address] | | | SERVICES, CORE | [address] | | | + + + + + OPERATION RECORD (11/06/2017 12:27 AM PDT) + + | Procedure Note | + + | Magdiel Stock MD - 11/06/2017 12:27 AM PDT Date of Service: 11/05/2017 Attending | | Surgeon: Magdiel Stock MD Global Account Executive(s): Rg Aiken MD | | Preoperative Diagnoses: [...] 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 Once nome | | skull was reached circumferentially around the prior incision, a #1 [place] was used | | to subperiosteally dissect [...] note for this encounter.Sonal Nunez, | | [facility] [id number] [place], [place] | | [phone] Orina, MDJB/TAHIRLDD: 11/05/2017 20:38:01DT: 11/06/2017 | | 00:27:33Job #: [id number] | |HATTIE/TAHIRL | | | | | | /[id number] | + + CT HEAD WO CONTRAST [...] necessary, edited the report. I agree with [facility] report as now presented. | | | |Final signature: Daniel Armijo MD 11/05/2017 8:19 PM | |Preliminary: Daniel Armijo MD | |Dictation initiated: Daniel Armijo MD 11/05/2017 8:17 PM | + + + +---------+ + + | Performing | Address | City/State/Zipcode | Phone Number | | Organization | | | | + +---------+ + + | [facility] | | | | | VOICE [...] Surgeon: Magdiel | | | MD Dayami Global Account Executive: Rg Aiken MD Pre-op Diagnosis: | | [...] PGY-4 Neurological Surgery Pager | | | [phone] | | + + + CAPILLARY BLOOD [...] [facility] | [address] | [place], [place] | | | GLORIA GENAO OF CARE | [address] | [address] | | | TESTS | | | [...] [facility] | [address] | [place], [place] | | | [facility] | [address] | [address] | | | TESTS | | | [...] Note | + + | Service Account, [employer] In Interface - 11/05/2017 11:31 AM PDT [...] | + + + + + | [facility] | [address] | [place] [address] | | | NATALEE WORTHINGTON | VILMA [...] | + + + + + | [facility] | [address] | [place] [address] | | | SERVICES, CORE | PARK [...] | | | LABORATORY | | | [place] | | | SERVICES, | | | [...] | + + + + + | [facility] | [address] [facility] | [place] [address] | | | SERVICES, CORE | PARK [...] | + + + + + | [facility] | [address] | [place] [address] | | | SERVICES, CORE | PARK [...] + + + + | PRODUCT | [id number] | | [facility] | | | UNIT [...] + + + + | EXPIRATION | [id number] | | [facility] | | | DATE [...] + + + + | BLOOD | [id number] | | [facility] | | | PRODUCT [...] | + + + + + | [facility] | [address] | [place] [address] | | | SERVICES, | [address] [...] + + + + | PRODUCT | [id number] | | [facility] | | | UNIT [...] + + + + | EXPIRATION | [id number] | | [facility] | | | DATE [...] + + + + | BLOOD | [id number] | | [facility] | | | PRODUCT [...] | + + + + + | [facility] | [address] | [place] [address] | | | SERVICES, | [address] [...] [facility] | [address] | [place] [address] | | | SERVICES, CORE | [address] [...] [facility] | [address] | [place] [address] | | | SERVICES, | [address] [...] [facility] | [address] | [place] [address] | | | SERVICES, | [address] [...] | + + + + + | [facility] | [address] [facility] | [place] [address] | | | SERVICES, CORE | VILMA [...] DEPT OF | [address] | [place], [place] | | | CARDIOLOGY | [address] | [address] | | + + + + + [...] [facility] | [address] | [place] [address] | | | SERVICES, CORE | VILMA [...] | + + + + + | [facility] | [address] | [place] [address] | | | SERVICES, NATALEE | VILMA [...] + | [facility] - | [address] | [place] [address] | | | [place] | | | [...] LABORATORY | [address] | [place] [address] | | | SERVICES, CORE | PARK [...] | + + + + + | [facility] | [address] | [place] [address] | | | SERVICES, CORE | VIL[address] [...] | | | LABORATORY | | | [place] | | | SERVICES, | | | [...] | + + + + + | [facility] | [address] | [place] [address] | | | SERVICES, CORE | PARK [...] | + + + + + | [facility] | [address] | [place] [address] | | | SERVICES, CORE | PARK [...] [facility] | [address] | [place] [address] | | | NATLAEE WORTHINGTON | [address] | | | [...] | | | LABORATORY | | | [place] | | | SERVICES, | | | [...] | + + + + + | [facility] | [address] | [place] [address] | | | SERVICES, NATALEE | VILMA [...] | + + + + + | [facility] | [address] | [place] [address] | | | SERVICES, CORE | VILMA [...] | | | LABORATORY | | | [place] | | | SERVICES, | | | [...] | + + + + + | [facility] | [address] | [place] [address] | | | SERVICES, CORE | [address] | | | + + + + + 12 LEAD ECG (11/01/2017 3:20 PM PDT) + + + + + + | Component | Value | Ref Range | Performed | Pathologist | | | | | At | Signature | + + + + + + | VENTRICULAR | 62 | bpm | [facility] DEPT | | | RATE | | [...] + + | [facility] DEPT OF | [address] | [place], [place] | | | CARDIOLOGY | [address] | [address] | | + + + + + [...] | + + + + + | [facility] | [address] [facility] | [place] [address] | | | SERVICES, CORE | [address]IL[address] [...] | | | LABORATORY | | | [place] | | | SERVICES, | | | [...] | + + + + + | [employer] [facility] | [address] | [place] [address] | | | SERVICES, CORE | VIL[address] [...] trauma on 10/31/2017 7:[address] Solmoon. I have | | | personally reviewed [...] Note | + + | Service Account, [employer] In Interface - 10/31/2017 8:22 PM [...] DEPT OF | [address] | [place], [place] | | | CARDIOLOGY | [address] | [address] | | + + + + + [...] | | | LABORATORY | | | [place] | | | SERVICES, | | | [...] | + + + + + | [facility] | [address] | [place] [address] | | | SERVICES, CORE | PARK [...] | + + + + + | [facility] | [address] | [place] [address] | | | NATALEE WORTHINGTON | [address] [...] (H) | 70 - 99 mg/dL | [facility] - | | | GLUCOSE, | | [...] [facility] | [address] | [place], [place] | | | GLORIA EGNAO OF [facility] | [address] | [address] | | | TESTS | | | [...] [facility] | [address] | [place] [address] | | | SERVICES, CORE | PARK [...] | | | LABORATORY | | | [place] | | | SERVICES, | | | [...] the MDRD equation recommended by the | [facility] | | National Kidney Disease Education Program. [...] | + + + + + | [facility] | [address] | [place] [address] | | | NATALEE WORTHINGTON | PARK [...] Note | + + | Service Account, [employer] In Interface - 10/29/2017 12:13 PM [...] [facility] | [address] | [place], [place] | | | GLORIA GENAO OF [facility] | [facility] | [address] | | | TESTS | | | [...] | + + + + + | [facility] | [address] [facility] | [place] [address] | | | SERVICES, CORE | [address] [...] | | | LABORATORY | | | [place] | | | SERVICES, | | | [...] | + + + + + | [facility] | [address] | [place] [address] | | | SERVICES, CORE | VILMA [...] (H) | 70 - 99 mg/dL | [facility] - | | | GLUCOSE, | | [...] [facility] | [address] | [place], [place] | | | [facility] | [address] | [address] | | | TESTS | | | [...] DEPT OF | [address] | [place], [place] | | | CARDIOLOGY | [address] | [address] | | + + + + + [...] [facility] | [address] | [place], [place] | | | GL[facility] GENAO [facility] CARE | [address] | [address] | | | TESTS | | | [...] [facility] | [address] | [place], [place] | | | [facility]ARE | [address] | [address] | | | TESTS | | | [...] | + + + + + | [facility] | [address] | [place] [address] | | | SERVICES, NATALEE | PARK [...] + | [facility] - | [address] | [place] [address] | | | [place] | | | [...] [facility] | [address] | [place] [address] | | | SERVICES, CORE | PARK [...] [facility] | [address] | [place] [address] | | | SERVICES, CORE | PARK [...] [facility] | [address] | [place] [address] | | | SERVICES, CORE | PARK [...] | | | LABORATORY | | | [place] | | | SERVICES, | | | [...] the MDRD equation recommended by the | [facility] | | National Kidney Disease Education Program. [...] | + + + + + | [facility] | [address] | [place] [address] | | | SERVICES, CORE | [address] | | | + + + + + MAGNESIUM, PLASMA (10/28/2017 5:29 AM PDT) + +-------+ + + + | Component | Value | Ref Range | Performed | Pathologist | | | | | At | Signature | + +-------+ + + + | MAGNESIUM,P | 1.8 | 1.6 - 2.6 mg/dL | [facility] | | | LASMA | | | [...] [facility] | [address] | [place] [address] | | | SERVICES, NATALEE | VILMA [...] - [facility] | [address] | [place], [place] | | | [facility] | [address] | [address] | | | TESTS | | | [...] (H) | 70 - 99 mg/dL | [facility] - | | | GLUCOSE, | | [...] [facility] | [address] | [place], [place] | | | [facility]IA GE[facility]O [facility] | [address] | [address] | | | TESTS | | | [...] At | + + + | EXAM: NE CHEST PICC LINE CHECK HISTORY: picc done [...] presented. Final signature: Francisco Javier Valverde | Prabhakar Radford MD 10/27/2017 6:28 PM Preliminary: Francisco Javier Valverde MD | | | Dictation initiated: Francisco Javier Valverde MD 10/27/2017 6:27 PM | | + + + + + | Procedure Note | + + | Service Account, [employer] In Interface - 10/27/2017 6:29 PM PDT EXAM: NE CHEST | | PICC LINE CHECK HISTORY: [...] and TPN Procedure | | | location: Unit:[facility] Room: 4 Providers: Attending [...] correct | | | patient, procedure, equipment, senior support analyst and site/side marked as | [...] vein. Catheter lot number: | | | [id number] with a length of 55 cm was [...] [facility] | [address] | [place], [place] | | | [facility] | [address] | [address] | | | TESTS | | | [...] DEPT OF | [address] | [place], [place] | | | CARDIOLOGY | [address] | [address] | | + + + + + [...] [facility] | [address] | [place], [place] | | | [facility] | [address] | [address] | | | TESTS | | | [...] | + + + + + | [facility] | [address] [facility] | [place] [address] | | | SERVICES, NATALEE | [address]ARK [...] | | | LABORATORY | | | [place] | | | SERVICES, | | | [...] | + + + + + | [facility] | [address] | [place] [address] | | | SERVICES, CORE | VILMA [...] [facility] | [address] | [place], [place] | | | [facility] GE[facility]O [facility]ARE | [address] | [address] | | | TESTS | | | [...] [facility] | [address] | [place], [place] | | | [facility] | [address] | [address] | | | TESTS | | | [...] [facility] | [address] | [place] | | | [facility] | [address] | [address] | | | TESTS | | | [...] [facility] | [address] | [place] [address] | | | SERVICES, CORE | [address]ILMA [...] | | | LABORATORY | | | [place] | | | SERVICES, | | | [...] the MDRD equation recommended by the | [facility] | | National Kidney Disease Education Program. [...] | + + + + + | [facility] | [address] | [place] [address] | | | SERVICES, CORE | VILMA [...] (H) | 70 - 99 mg/dL | [facility] - | | | GLUCOSE, | | [...] [facility] | [address] | [place], [place] | | | [facility] GENAO [facility] | [facility] | [address] | | | TESTS | | | [...] | | | LABORATORY | | | [place] | | | SERVICES, | | | [...] | + + + + + | [facility] | [address] | [place] [address] | | | SERVICES, CORE | VILMA [...] [facility] | [address] | [place], [place] | | | GLORIA GENAO [facility] [employer] | [address] | [address] | | | TESTS | | | [...] + + | [facility] | [address] | [place], [place] | | | CARDIOLOGY | [address] | [address] | | + + + + + [...] [facility] | [address] | [place] | | | [facility] GE[facility]O [facility] | [address] | [address] | | | TESTS | | | [...] DEPT OF | [address] | [place], [place] | | | CARDIOLOGY | [address] | [address] | | + + + + + [...] | + + + + + | [facility] | [address] | [place] [address] | | | SERVICES, CORE | VILMA [...] + | [facility] - | [address] | [place] [address] | | | [place] | | | | + + + [...] and new reporting units as of | [facility] | | 09/30/2013. | LABORATORY | | | NATALEE WORTHINGTON | + + + + + + + + | Performing | Address | City/State/Zipcode | Phone Number | | Organization | | | | + + + + + | [facility] | [address] | [place] [address] | | | SERVICES, NATALEE | VILMA [...] [facility] | [address] | [place] [address] | | | SERVICES, CORE | PARK [...] [facility] | [address] | [place] [address] | | | NATALEE WORTHINGTON | [address] [...] [facility] | [address] | [place] [address] | | | SERVICES, CORE | PARK [...] | + + + + + | [facility] | [address] | [place] [address] | | | SERVICES, CORE | VILMA [...] [facility] | [address] | [place] [address] | | | SERVICES, CORE | PARK [...] [facility] | [address] | [place] [address] | | | SERVICES, CORE | PARK [...] [facility] | [address] | [place] [address] | | | SERVICES, CORE | PARK [...] | + + + + + | [facility] | [address] | [place] [address] | | | SERVICES, CORE | VILMA [...] + | [facility] | [address] | [place] [address] | | | SERVICES, CORE | PARK [...] | | | LABORATORY | | | [place] | | | SERVICES, | | | [...] the MDRD equation recommended by the | [facility] | | National Kidney Disease Education Program. [...] | + + + + + | [facility] | [address] | [place] [address] | | | NATALEE WORTHINGTON | [address] [...] | | | correct patient, procedure, equipment, senior support analyst and site/side | | | [...] | area Basilic vein. Catheter lot number: [id number] with a length of 55 | | [...] At | + + + | EXAM: NE CHEST 1 VIEW HISTORY: PICC placed-pt ready. [...] Interface - 10/24/2017 3:43 PM PDT EXAM: NE CHEST 1 | | VIEW HISTORY: PICC [...] [facility] | [address] | [place], [place] | | | [facility]ORIA GENAO OF [facility] | [address] | [address] | | | TESTS | | | [...] | | Surgical Critical Care, PGY7 Pager: [phone] | | + + + CAPILLARY BLOOD [...] [facility] | [address] | [place], [place] | | | JOHN GENAO | [facility] | [address] | | | TESTS | | | [...] [facility] | [address] | [place], [place] | | | [facility] | [address] | [address] | | | TESTS | | | [...] | | | LABORATORY | | | [place] | | | SERVICES, | | | [...] | + + + + + | [facility] | [address] | [place] [address] | | | SERVICES, CORE | VILMA [...] [facility] | [address] | [place] [address] | | | NATALEE WORTHINGTON | VILMA [...] [facility] | [address] | [place] | | | [facility] | [address] | [address] | | | TESTS | | | [...] | + + + + + | [facility] | [address] | [place] [address] | | | SERVICES, CORE | VILMA [...] | | | LABORATORY | | | [place] | | | SERVICES, | | | [...] 11 | 4 - 11 mmol/L | [facility] | | | GAP(ALB | | | [...] | + + + + + | [facility] | [address] | [place] [address] | | | SERVICES, CORE | VILMA [...] DEPT OF | [address] | [place], [place] | | | CARDIOLOGY | [address] | [address] | | + + + + + IR GASTROSTOMY TUBE EXCHANGE (10/22/2017 2:42 PM PDT) + + | Specimen | + + | | + + + + + | Narrative | Performed At | + + + | Procedure: Gastrostomy tube exchange Primary attending | [facility] | | senior controller: Shade Nix M.D. Preoperative diagnosis: | RADIOLOGY VOICE | | Malfunctioning Gastrostomy tube Postoperative diagnosis: Same | RECOGNITION | | Operations: Operation 1. Removal of existing Gastrostomy tube | | | over a guide wire Operation 2. Placement of 24 Taiwanese GABRIEL | | | gastrostomy over guide [...] a stiff glide wire the new 24 Taiwanese gastrostomy tube was | | | inserted. [...] Procedure: | | Gastrostomy tube exchangePrimary attending senior controller: Shade Nix, | | BrynPreoperative diagnosis: Malfunctioning Gastrostomy tubePostoperative diagnosis: | | SameOperations:Operation 1. Removal of existing Gastrostomy tube over a guide | | wireOperation 2. Placement of 24 Taiwanese GABRIEL gastrostomy over guide wireNo sedation was [...] glide wire the | | new 24 Taiwanese gastrostomy tube was inserted. The position of [...] stiff g lide wire the new 24 Taiwanese | |gastrostomy tube was inserted. The position [...] Note | + + | Service Account, [employer] In Interface - 10/22/2017 10:34 AM [...] [facility] | [address] | [place], [place] | | | CARDIOLOGY | [address] | [address] | | + + + + + [...] | + + + + + | [facility] | [address] | [place] [address] | | | NATALEE WORTHINGTON | VILMA [...] | | | LABORATORY | | | [place] | | | SERVICES, | | | [...] | + + + + + | [facility] | [address] | [place] [address] | | | SERVICES, CORE | PARK [...] DEPT OF | [address] | [place], [place] | | | CARDIOLOGY | [address] | [address] | | + + + + + [...] | | | LABORATORY | | | [place] | | | SERVICES, | | | [...] | + + + + + | [facility] | [address] | [place] [address] | | | SERVICES, CORE | PARK [...] | + + + + + | [facility] | [address] | [place] [address] | | | SERVICES, NATALEE | [address] | | | + + + + + 12 LEAD ECG (10/19/2017 12:23 PM PDT) + + + + + + | Component | Value | Ref Range | Performed | Pathologist | | | | | At | Signature | + + + + + + | VENTRICULAR | 53 | bpm | [facility] DEPT | | | RATE | | [...] DEPT OF | [address] | [place], [place] | | | CARDIOLOGY | [address] | [address] | | + + + + + [...] | + + + + + | [facility] | [address] [facility] | [place] [address] | | | SERVICES, CORE | PARK [...] | | | LABORATORY | | | [place] | | | SERVICES, | | | [...] | + + + + + | [facility] | [address] | [place] [address] | | | SERVICES, CORE | VILMA [...] [facility] | [place], [place] | | | CARDIOLOGY | [address] | [address] | | + + + + + [...] | | | LABORATORY | | | [place] | | | SERVICES, | | | [...] | + + + + + | [facility] | [address] | [place] [address] | | | SERVICES, CORE | VILMA [...] | + + + + + | [facility] | [address] | [place] [address] | | | SERVICES, CORE | PARK [...] DEPT OF | [address] | [place], [place] | | | CARDIOLOGY | [facility] | [address] | | + + + + + [...] | | | LABORATORY | | | [place] | | | SERVICES, | | | [...] [facility] | [address] | [place] [address] | | | SERVICES, CORE | PARK [...] + + | SELENA MCNAIR | [address] [facility] | [place] [address] | | | SERVICES, CORE | VILMA [...] Note | + + | Service Account, Getting[employer] In Interface - 10/15/2017 3:58 PM PDT [...] DEPT OF | [address] | [place], [place] | | | CARDIOLOGY | [address] | [address] | | + + + + + [...] PICKETT | [address] | [place], [place] | | | GLORIA GENAO OF [facility] | [address] | [address] | | | TESTS | | | [...] [facility] | [address] | [place] [address] | | | NATALEE WORTHINGTON | VILMA [...] - PIYUSH | [address] | [place], [place] | | | [facility] | [address] | [address] | | | TESTS | | | [...] + + | SELENA GEET OF | [address] | [place], [place] | | | CARDIOLOGY | [address] | [address] | | + + + + + [...] [facility] | [address] | [place] [address] | | | SERVICES, CORE | PARK [...] | | | LABORATORY | | | [place] | | | SERVICES, | | | [...] the MDRD equation recommended by the | [facility] | | National Kidney Disease Education Program. [...] | + + + + + | [facility] | [address] | [place] [address] | | | ELIN, NATALEE | VILMA [...] | | | LABORATORY | | | NATAELE WORTHINGTON | + + + + + + + + | Performing | Address | City/State/Zipcode | Phone Number | | Organization | | | | + + + + + | [facility] | [address] [facility] | [place] [address] | | | NATALEE WORTHINGTON | PARK [...] MARQUAM | [address] | [place], [place] | | | GLORIA GENAO OF CARE | [facility] | [address] | | | TESTS | | | [...] RAPHAELAM | [address] | [place], [place] | | | GLORIA GENAO OF [facility] | [address] | [address] | | | TESTS | | | [...] | + + + + + | [facility] | [address] [facility] | [place] [address] | | | NATALEE WORHTINGTON | [address] | | | + [...] | | | LABORATORY | | | [place] | | | SERVICES, | | | [...] | + + + + + | [facility] | [address] | [place] [address] | | | SERVICES, CORE | [address] | | | + + + + + OPERATION RECORD (10/12/2017 8:50 PM PDT) + + | Procedure Note | + + | Pilar Cotto MD - 10/12/2017 8:50 PM PDT Date of Service: 10/12/2017 | | Attending Surgeon: Chaz Hernandez MD Global Account Executive(s): Randell Dixon M.D., | | fellow. George [...] saline. We then | | placed a 19-[place]ese drain deep into the abscess cavity, tracking [...] 10/12/2017 19:50:06DT: 10/12/2017 20:50:54Job #: | | [id number] | + + X-RAY PORTABLE CHEST 1 VIEW (10/12/2017 7:50 PM PDT) + + | Specimen | + + | | + + + + + | Narrative | Performed At | + + + | EXAM: NE CHEST 1 VIEW HISTORY: Evaluate endotracheal tube [...] Interface - 10/13/2017 9:04 AM PDT EXAM: NE CHEST 1 | | VIEW HISTORY: Evaluate [...] + + + | SELENA PICKETT | [address] | [place], [place] | | | [facility] | [address] | [address] | | | TESTS | | | [...] | + + + + + | [facility] | [address] | [place] [address] | | | SERVICES, CORE | VILMA [...] | | | LABORATORY | | | [place] | | | SERVICES, | | | [...] [facility] | [address] | [place] [address] | | | SERVICES, CORE | PARK [...] [facility] | [address] | [place] [address] | | | SERVICES, CORE | VILMA [...] DEPT OF | [address] | [place], [place] | | | CARDIOLOGY | [address] | [address] | | + + + + + [...] OF | [address] | [place], [place] | | | CARDIOLOGY | [address] | [address] | | + + + + + [...] | + + + + + | [facility] | [address] | [place] [address] | | | SERVICES, CORE | VILMA [...] | + + + + + | [facility] | [address] | [place] [address] | | | SERVICES, CORE | PARK [...] | | | LABORATORY | | | [place] | | | SERVICES, | | | [...] | + + + + + | [facility] | [address] | [place] [address] | | | SERVICES, [facility] | [address] | | | + + + + + PROCEDURE NOTE (10/10/2017 10:00 PM PDT) + + + | Narrative | Performed At | + + + | Darius Link MD 10/12/2017 11:11 AM OPERATIVE REPORT | | | DATE OF OPERATION: 10/10/2017 ATTENDING SURGEON: 1. Dr. Hernandez | | | SPOT MACHINE OPERATOR: 1. Darius Link MD INDICATIONS: Dysphagia [...] | | | [place] [id number] Chief Resident | | | Neurosurgery | [...] | + + + + + | [facility] | [address] [facility] | [place] [address] | | | SERVICES, CORE | VILMA [...] | | | LABORATORY | | | [place] | | | SERVICES, | | | [...] | [facility] | [address] [facility] | [place] [address] | | | SERVICES, CORE | PARK [...] | + + + + + | [facility] | [address] [facility] | [place] [address] | | | SERVICES, [facility] | [address] | | | + + + + + OPERATION RECORD (10/10/2017 12:40 PM PDT) + + | Procedure Note | + + | Magdiel Stock MD - 10/10/2017 12:40 PM PDT Date of Service: 10/10/2017 Attending | | Surgeon: Magdiel Stock MD Global Account Executive(s): Cecilia Jackson | | . Preoperative Diagnoses: [...] a 67-year-old male. Please see [facility] for full details. He | | was [...] | the note for this encounter.Sonal Nunez [facility]DM[facility] [id number] [facility] | | [place] [phone] Orina, MDFABaljeet/MODLDD: | | 10/10/2017 11:52:15DT: 10/10/2017 12:40:41Job #: [id number] | | | | | |I was present for the critical portions of the procedure as described in the note for this encounter. | | | |Magdiel Stock MD | | | |Magdiel Stock MD | |[address] | |[address] [facility] | |[facility] | |[place] [address] | |[phone] | | | | | |Magdiel Stock MD | |FAH/MODL | | | | | | /[id number] | + + X-RAY ABDOMEN 1 VIEW [...] + | [facility] | [address] | [place] [address] | | | [place] | | | [...] + | [facility] | [address] | [place] [address] | | | [place] | | | [...] Gram Stain: No squamous epithelial cells | [place] | | Many polymorphonuclear cells No organisms seen | | + + + + + + + + | Performing | Address | City/State/Zipcode | Phone Number | | Organization | | | | + + + + + | [facility] | [address] | [place] [address] | | | [facility] [...] detected | [facility] - | | | [place] | + + + + + + + + | Performing | Address | City/State/Zipcode | Phone Number | | Organization | | | | + + + + + | [facility] | [address] | [place] [address] | | | [place] | | | | + + + [...] + | [facility] | [address] | [place] [address] | | | [place] | | | | + + + [...] culture | [facility] - | | collected 6/14/18 at 0903 for susceptibilities No anaerobic | [facility] - | | organisms isolated Gram Stain: No squamous epithelial cells | [place] | | Many polymorphonuclear cells No organisms seen | | + + + + + + + + | Performing | Address | City/State/Zipcode | Phone Number | | Organization | | | | + + + + + | [facility] - | [address] | [place] [address] | | | [place] | | | | + + + [...] + | [facility] | [address] | [place] [address] | | | [place] | | | [...] + | [facility] | [address] | [place] [address] | | | [place] | | | [...] + | [facility] | [address] | [place] [address] | | | [place] | | | | + + + [...] + | [facility] | [address] | [place] [address] | | | [place] | | | [...] - | | | | | | [place] | | + + + + + [...] [facility] | | Moderate polymorphonuclear cells No organisms seen | | + + + + + + + + | Performing | Address | City/State/Zipcode | Phone Number | | Organization | | | | + + + + + | [facility] | [address] | [place] [address] | | | [facility] [...] detected | [facility] - | | | [place] | + + + + + + + + | Performing | Address | City/State/Zipcode | Phone Number | | Organization | | | | + + + + + | [facility] | [address] | [place] [address] | | | [facility] [...] + | [facility] | [address] | [place] [address] | | | [place] | | | | + + + [...] 1+ Pseudomonas aeruginosa Refer to culture | [place] - | | collected 10/10/17 at 0903 for susceptibilities No anaerobic | [facility] - | | organisms isolated Gram Stain: No squamous epithelial cells | [place] | | Moderate polymorphonuclear cells No organisms seen | | + + + + + + + + | Performing | Address | City/State/Zipcode | Phone Number | | Organization | | | | + + + + + | [facility] - | [address] | [place] [address] | | | [place] | | | | + + + [...] detected | [facility] - | | | [place] | + + + + + + + + | Performing | Address | City/State/Zipcode | Phone Number | | Organization | | | | + + + + + | [facility] | [address] | [place] [address] | | | [place] | | | [...] + | [facility] | [address] | [place] [address] | | | [facility] | | | | + + + [...] + | [facility] | [address] | [place] [address] | | | [place] | | | [...] bacteria isolated at 6 weeks. AFB | [facility] - | | Smear: AFB not detected | [facility] - | | | [place] | + + + + + + + + | Performing | Address | City/State/Zipcode | Phone Number | | Organization | | | | + + + + + | [facility] | [address] | [place] [address] | | | [place] | | | [...] [facility] | [address] | [place] [address] | | | SERVICES, NATALEE | PARK [...] [facility] | [address] | [place] [address] | | | SERVICES, NATALEE | PARK [...] [facility] | [address] | [place] [address] | | | SERVICES, CORE | VILMA [...] | | | LABORATORY | | | [place] | | | SERVICES, | | | [...] | + + + + + | [facility] | [address] [facility] | [place] [address] | | | ELIN, CORE | VILMA [...] + + + + | QTC-BABRAYDONTT | 493 | ms | [facility] [...] DEPT OF | [address] | [place], [place] | | | CARDIOLOGY | [address] | [address] | | + + + + + [...] + + + + | PRODUCT | [id number] | | [facility] | | | UNIT [...] + + + + | EXPIRATION | [id number] | | [facility] | | | DATE [...] + + + + | BLOOD | [id number] | | [facility] | | | PRODUCT [...] | + + + + + | [facility] | [address] | [place] [address] | | | SERVICES, | [address] [...] + + + + | PRODUCT | [id number] | | [facility] | | | UNIT [...] + + + + | EXPIRATION | [id number] | | [facility] | | | DATE [...] + + + + | BLOOD | [id number] | | [facility] | | | PRODUCT [...] SELENA MCNAIR | [address] | [place] [address] | | | SERVICES, | [address] [...] | + + + + + | [facility] | [address] | [place] [address] | | | SERVICES, | [address] [...] [facility] | [address] | [place] [address] | | | SERVICES, | [address] [...] [facility] | [address] | [place] [address] | | | SERVICES, | [address] [...] | + + + + + | [facility] | [address] | [place] [address] | | | SERVICES, CORE | VILMA [...] + | [facility] DEPT OF | [address] [facility] | [place], [place] | | | CARDIOLOGY | [address] | [address] | | + + + + + [...] Note | + + | Service Account, [employer] Res In Interface - 10/08/2017 10:47 AM [...] [facility] | [address] | [place], [place] | | | [facility] CARE | [address] | [address] | | | TESTS | | | [...] | + + + + + | [facility] | [address] | [place] [address] | | | SERVICES, CORE | PARK [...] [facility] | [address] | [place] [address] | | | NATALEE WORTHINGTON | [address] [...] | | | LABORATORY | | | [place] | | | SERVICES, | | | [...] | + + + + + | [facility] | [address] | [place] [address] | | | SERVICES, NATALEE | V[address] [...] RAPHAELAM | [address] | [place], [place] | | | [facility] | [facility] | [address] | | | TESTS | | | [...] (H) | 70 - 99 mg/dL | [facility] - | | | GLUCOSE, | | [...] PICKETT | [address] | [place], [place] | | | [facility] | [address] | [address] | | | TESTS | | | [...] PIYUSH | [address] | [place], [place] | | | [facility] | [facility] | [address] | | | TESTS | | | [...] RAPHAELAM | [address] | [place], [place] | | | [facility] | [facility] | [address] | | | TESTS | | | [...] (H) | 70 - 99 mg/dL | [facility] - | | | GLUCOSE, | | [...] PICKETT | [address] | [place], [place] | | | [facility] | [address] | [address] | | | TESTS | | | [...] | + + + + + | [facility] | [address] [facility] | [place] [address] | | | NATALEE WORTHINGTON | [address] [...] | + + + + + | [facility] | [address] | [place] [address] | | | NATALEE WORTHINGTON | [address] [...] | | | LABORATORY | | | [place] | | | SERVICES, | | | [...] | + + + + + | [facility] | [address] | [place] [address] | | | SERVICES, CORE | VILMA [...] 99 | 70 - 99 mg/dL | [facility] - | | | GLUCOSE, | | [...] PICKETT | [address] | [place], [place] | | | [facility] | [address] | [address] | | | TESTS | | | [...] MARQUAM | [address] | [place], [place] | | | [facility] | [facility] | [address] | | | TESTS | | | [...] DEPT OF | [address] | [place], [place] | | | CARDIOLOGY | [address] | [address] | | + + + + + [...] PICKETT | [address] | [place], [place] | | | [facility] | [address] | [address] | | | TESTS | | | [...] [facility] | [address] | [place] [address] | | | NATALEE WORTHINGTON | V[place]MA [...] | + + + + + | [facility] | [address] [facility] | [place] [address] | | | NATALEE WORTHINGTON | [address] [...] | | | LABORATORY | | | [place] | | | SERVICES, | | | [...] | + + + + + | [facility] | [address] | [place] [address] | | | SERVICES, CORE | PARK [...] PIYUSH | [address] | [place] | | | [facility] | [address] | [address] | | | TESTS | | | [...] PIYUSH | [address] | [place], [place] | | | [facility] | [facility] | [address] | | | TESTS | | | [...] (H) | 70 - 99 mg/dL | [facility] - | | | GLUCOSE, | | [...] PICKETT | [address] | [place], [place] | | | [facility] | [facility] | [address] | | | TESTS | | | [...] PIYUSH | [address] | [place], [place] | | | [facility] | [address] | [address] | | | TESTS | | | [...] GERARDT | | | IMPRESSION | by: GBARIELA VANN | | OF | | | [...] [facility] | [place], [place] | | | CARDIOLOGY | [address] | [address] | | + + + + + [...] | + + + + + | [facility] | [address] | [place] [address] | | | SERVICES, NATALEE | VILMA [...] | + + + + + | [facility] | [address] | [place] [address] | | | SERVICES, CORE | VILMA [...] | | | LABORATORY | | | [place] | | | SERVICES, | | | [...] | + + + + + | [facility] | [address] | [place] [address] | | | SERVICES, CORE | VILMA [...] (H) | 70 - 99 mg/dL | [facility] - | | | GLUCOSE, | | [...] PICKETT | [address] | [place], [place] | | | [facility] | [address] | [address] | | | TESTS | | | [...] MARQU[facility] | [address] | [place], [place] | | | [facility] | [address] | [address] | | | TESTS | | | [...] - MAR[facility] | [address] | [place], [place] | | | [facility] | [facility] | [address] | | | TESTS | | | [...] PICKETT | [address] | [place], [place] | | | [facility] | [address] | [address] | | | TESTS | | | [...] MAR[facility] | [address] | [place], [place] | | | [facility] | [address] | [address] | | | TESTS | | | [...] | + + + + + | [facility] | [address] | [place] [address] | | | SERVICES, CORE | PARK [...] [facility] | [address] | [place] [address] | | | SERVICES, CORE | V[place]MA [...] | | | LABORATORY | | | [place] | | | SERVICES, | | | [...] | + + + + + | [facility] | [address] | [place] [address] | | | NATALEE WORTHINGTON | [address] [...] - PIYUSH | [address] | [place], [place] | | | [facility] | [facility] | [address] | | | TESTS | | | [...] (H) | 70 - 99 mg/dL | [facility] - | | | GLUCOSE, | | [...] PICKETT | [address] | [place], [place] | | | [facility] | [address] | [address] | | | TESTS | | | [...] | + + + + + | [facility] | [address] | [place] [address] | | | SERVICES, CORE | VILMA [...] by | | | | | | [id number] | | | | | | Rogelio Pickard, [facility],[place] | | | | | | [phone] | | | | | | [phone].[employer]. | | | | | | Gui [...] [facility] | [address] | [place], [place] | | | [facility] | | [address] | | + + + + + [...] [facility] | [address] | [place] [address] | | | SERVICES, CORE | PARK [...] [facility] | [address] | [place] [address] | | | SERVICES, CORE | PARK [...] modified from | [facility] | | original boiler house mechanic's approved specifications. The performance | LABORATORY | | of the ATHLETIC TEAM PHYSICIAN HIV Combo test, with or without confirmation, [...] | + + + + + | [facility] | [address] | [place] [address] | | | SERVICES, SPECIAL | PARK [...] PIYUSH | [address] | [place], [place] | | | [facility] | [facility] | [address] | | | TESTS | | | [...] PIYUSH | [address] | [place], [place] | | | [facility] | [facility] | [address] | | | TESTS | | | [...] | + + + + + | [facility] | [address] | [place] [address] | | | SERVICES, CORE | PARK [...] [facility] | [address] | [place] [address] | | | SERVICES, CORE | PARK [...] | | | LABORATORY | | | [place] | | | SERVICES, | | | [...] | + + + + + | [facility] | [address] | [place] [address] | | | NATALEE WORTHINGTON | VILMA [...] 96 | 70 - 99 mg/dL | [facility] - | | | GLUCOSE, | | [...] PICKETT | [address] | [place], [place] | | | [facility] | [address] | [address] | | | TESTS | | | [...] MARQU[facility] | [address] | [place], [place] | | | H[place], POINT OF CARE | [address] | [address] | | | TESTS | | | [...] GEET OF | [address] | [place], [place] | | | CARDIOLOGY | [address] | [address] | | + + + + + [...] At | + + + | EXAM: NE CHEST 1 VIEW HISTORY: Evaluate PICC placement [...] Note | + + | Service Account, [employer] Res In Interface - 10/02/2017 2:07 PM PDT EXAM: NE CHEST 1 | | VIEW HISTORY: Evaluate [...] [facility] | [address] | [place], [place] | | | [facility] | [address] | [address] | | | TESTS | | | | + + + + + X-RAY PORTABLE CHEST 1 VIEW (10/02/2017 8:56 AM PDT) + + | Specimen | + + | | + + + + + | Narrative | Performed At | + + + | EXAM: NE CHEST 1 VIEW HISTORY: new leukocytosis, eval [...] Interface - 10/02/2017 10:27 AM PDT EXAM: NE CHEST 1 | | VIEW HISTORY: new [...] + + + | [facility] PICK[facility] | [address] | [place], [place] | | | [facility] | [address] | [address] | | | TESTS | | | [...] [facility] | [address] | [place] [address] | | | NATALEE WORTHINGTON | [address] [...] | + + + + + | [facility] | [address] | [place] [address] | | | NATALEE WORTHINGTON | [address] [...] | | | LABORATORY | | | [place] | | | SERVICES, | | | [...] | + + + + + | [facility] | [address] | [place] [address] | | | SERVICES, CORE | [address] | | | + + + + + CAPILLARY BLOOD GLUCOSE (NO CHG), CITLALY (10/02/2017 12:21 AM PDT) + +---------+ + [...] [facility] | [address] | [place], [place] | | | [facility] | [address] | [address] | | | TESTS | | | [...] SELENA PICKETT | [address] | [place], [place] | | | [facility] | [address] | [address] | | | TESTS | | | [...] Note | + + | Service Account, [employer] Res In Interface - 10/01/2017 2:15 PM [...] [facility] | [address] | [place], [place] | | | [facility] | [address] | [address] | | | TESTS | | | [...] Note | + + | Service Account, [employer] In Interface - 10/01/2017 11:34 AM PDT [...] P[facility] | [address] | [place], [place] | | | [facility] | [address] | [address] | | | TESTS | | | [...] [facility] | [address] | [place] [address] | | | NATALEE WORTHINGTON | [address] [...] [facility] | [address] | [place] [address] | | | NATALEE WORTHINGTON | PARK [...] | | | LABORATORY | | | [place] | | | SERVICES, | | | [...] | + + + + + | [facility] | [address] | [place] [address] | | | SERVICES, CORE | V[place]MA [...] RAPHAELAM | [address] | [place] | | | [facility] | [address] | [address] | | | TESTS | | | [...] RAPHAELAM | [address] | [place], [place] | | | [facility] | [address] | [address] | | | TESTS | | | [...] + + + + | [facility] | 481 | ms | [facility] [...] DEPT OF | [address] | [place], [place] | | | CARDIOLOGY | [address] | [address] | | + + + + + [...] PICKETT | [address] | [place], [place] | | | [facility] | [facility] | [address] | | | TESTS | | | | + + + + + CAPILLARY BLOOD GLUCOSE (NO CHG), CITLALY (09/30/2017 6:26 AM PDT) + +---------+ + [...] RAPHAELAM | [address] | [place], [place] | | | [facility] | [facility] | [address] | | | TESTS | | | [...] | + + + + + | [facility] | [address] | [place] [address] | | | SERVICES, CORE | VILMA [...] [facility] | [address] | [place] [address] | | | SERVICES, CORE | PARK [...] | | | LABORATORY | | | [place] | | | SERVICES, | | | [...] | + + + + + | [facility] | [address] | [place] [address] | | | NATALEE WORTHINGTON | VILMA [...] (H) | 70 - 99 mg/dL | [facility] - | | | GLUCOSE, | | [...] RAPHAELAM | [address] | [place], [place] | | | [facility]ARE | [address] | [address] | | | TESTS | | | [...] PICKETT | [address] | [place], [place] | | | [facility] | [facility] | [address] | | | TESTS | | | [...] RAPHAELAM | [address] | [place] | | | [facility]O OF [facility] | [facility] | [address] | | | TESTS | | | [...] DEPT OF | [address] | [place], [place] | | | CARDIOLOGY | [address] | [address] | | + + + + + [...] MARQUAM | [address] | [place], [place] | | | GLORIA GENAO OF CARE | [address] | [address] | | | TESTS | | | [...] | + + + + + | [facility] | [address] | [place] [address] | | | NATALEE WORTHINGTON | VILMA [...] | | | LABORATORY | | | [place] | | | SERVICES, | | | [...] | + + + + + | [facility] | [address] | [place] [address] | | | SERVICES, CORE | VILMA [...] | + + + + + | [facility] | [address] [facility] | [place] [address] | | | NATALEE WORTHINGTON | PARK [...] PIYUSH | [address] | [place], [place] | | | GLORIA GENAO OF [facility] | [facility] | [address] | | | TESTS | | | [...] (H) | 70 - 99 mg/dL | [facility] - | | | GLUCOSE, | | [...] PICKETT | [address] | [place], [place] | | | [facility] | [address] | [address] | | | TESTS | | | [...] PIYUSH | [address] | [place], [place] | | | GLORIA GENAO OF [facility] | [address] | [address] | | | TESTS | | | [...] [facility] | [place], [place] | | | CARDIOLOGY | [address] | [address] | | + + + + + [...] PICKETT | [address] | [place], [place] | | | GLORIA GENAO OF [facility] | [address] | [address] | | | TESTS | | | [...] [facility] | [address] | [place] [address] | | | NATALEE WORTHINGTON | VILMA [...] | + + + + + | [facility] | [address] | [place] [address] | | | NATALEE WORTHINGTON | PARK [...] | | | LABORATORY | | | [place] | | | SERVICES, | | | [...] | + + + + + | [facility] | [address] | [place] [address] | | | SERVICES, CORE | PARK [...] MARQUAM | [address] | [place], [place] | | | GLORIA GENAO OF CARE | [address] | [address] | | | TESTS | | | [...] - PIYUSH | [address] | [place], [place] | | | [facility] | [address] | [address] | | | TESTS | | | [...] Note | + + | Service Account, RadiVoxa Res In Interface - 09/27/2017 2:19 PM [...] poorly cleared with dry swallows. Please see [facility] for full details | | [...] MARQUAM | [address] | [place], [place] | | | GLORIA GENAO OF CARE | [address] | [address] | | | TESTS | | | [...] MARQUAM | [address] | [place], [place] | | | GLORIA GENAO OF CARE | [address] | [address] | | | TESTS | | | [...] | + + + + + | [facility] | [address] | [place] [address] | | | NATALEE WORTHINGTON | VILMA [...] | + + + + + | [facility] | [address] | [place] [address] | | | SERVICES, CORE | PARK [...] | | | LABORATORY | | | [place] | | | SERVICES, | | | [...] | + + + + + | [facility] | [address] | [place] [address] | | | SERVICES, CORE | VILMA [...] (H) | 70 - 99 mg/dL | [facility] - | | | GLUCOSE, | | [...] PICKETT | [address] CHAMBERS | [place], [place] | | | GLORIA GENAO OF CARE | [address] | [address] | | | TESTS | | | [...] MARQUAM | [address] | [place], [place] | | | [facility] POINT OF CARE | [address] | [address] | | | TESTS | | | [...] DEPT OF | [address] | [place], [place] | | | CARDIOLOGY | [address] | [address] | | + + + + + [...] PICKETT | [address] | [place], [place] | | | GLORIA GENAO OF GM | [facility] | [address] | | | TESTS | | | | + + + + + CAPILLARY BLOOD GLUCOSE (NO CHG)CITLALY (09/26/2017 9:22 AM PDT) + +---------+ + [...] RAPHAELAM | [address] | [place], [place] | | | GLORIA GENAO OF GM | [facility] | [address] | | | TESTS | | | [...] (H) | 70 - 99 mg/dL | [facility] - | | | GLUCOSE, | | [...] PICKETT | [address] | [place], [place] | | | [facility] CARE | [address] | [address] | | | TESTS | | | [...] | + + + + + | [facility] | [address] | [place] [address] | | | NATALEE WORTHINGTON | VILMA [...] | + + + + + | [facility] | [address] [facility] | [place] [address] | | | SERVICES, CORE | VILMA [...] | | | LABORATORY | | | [place] | | | SERVICES, | | | [...] | + + + + + | [facility] | [address] | [place] [address] | | | SERVICES, CORE | VILMA [...] | 70 - 99 mg/dL | [facility] - | | | GLUCOSE, | | [...] PICKETT | [address] | [place], [place] | | | GLORIA GENAO OF GM | [facility] | [address] | | | TESTS | | | [...] [facility] | [address] | [place] [address] | | | NATALEE WORTHINGTON | PARK [...] | + + + + + | [facility] | [address] | [place] [address] | | | SERVICES, CORE | PARK [...] | | | LABORATORY | | | [place] | | | SERVICES, | | | [...] | + + + + + | [facility] | [address] | [place] [address] | | | SERVICES, CORE | VILMA [...] + + | [facility] DEPT OF | [address] | [place], [place] | | | CARDIOLOGY | [address] | [address] | | + + + + + [...] | + + | Service Account, [employer] In Interface - 09/24/2017 4:09 PM PDT [...] | + + + + + | [facility] | [address] | [place] [address] | | | NATALEE WORTHINGTON | PARK [...] | | | LABORATORY | | | [place] | | | SERVICES, | | | [...] | + + + + + | [facility] | [address] | [place] [address] | | | SERVICES, CORE | PARK [...] [facility] | [address] | [place] [address] | | | NATALEE WORTHINGTON | VILMA [...] | + + + + + | [facility] | [address] | [place] [address] | | | SERVICES, CORE | PARK [...] [facility] | [address] | [place] [address] | | | SERVICES, CORE | PARK [...] | | | LABORATORY | | | [place] | | | SERVICES, | | | [...] | + + + + + | [facility] | [address] [facility] | [place] [address] | | | NATALEE WORTHINGTON | VILMA [...] PIYUSH | [address] | [place], [place] | | | [facility]ARE | [address] | [address] | | | TESTS | | | [...] (H) | 70 - 99 mg/dL | [facility] - | | | GLUCOSE, | | [...] PICKETT | [address] | [place], [place] | | | [facility] | [address] | [address] | | | TESTS | | | [...] Note | + + | Service Account, [employer] In Interface - 09/22/2017 4:25 PM [...] [facility] | [address] | [place] [address] | | | SERVICES, CORE | VILMA [...] OF | [address] | [place], [place] | | | CARDIOLOGY | [facility] | [address] | | + + + + + [...] | + + + + + | [facility] | [address] | [place] [address] | | | SERVICES, CORE | VILMA [...] LABORATORY | [address] | [place] [address] | | | SERVICES, CORE | PARK [...] | | | LABORATORY | | | [place] | | | SERVICES, | | | [...] | + + + + + | [facility] | [address] | [place] [address] | | | NATALEE WORTHINGTON | VILMA [...] (H) | 70 - 99 mg/dL | [facility] - | | | GLUCOSE, | | [...] PICKETT | [address] | [place], [place] | | | GLORIA GENAO OF [facility] | [address] | [address] | | | TESTS | | | [...] signature: [email or web address] | | | MD You 09/22/2017 8:40 [...] | + + + + + | [facility] | [address] | [place] [address] | | | SERVICES, CORE | PARK [...] [facility] | [address] | [place] [address] | | | SERVICES, NATALEE | VILMA [...] | | | LABORATORY | | | [place] | | | SERVICES, | | | [...] | + + + + + | [facility] | [address] | [place] [address] | | | SERVICES, CORE | VILMA [...] Note | + + | Service Account, [employer] In Interface - 09/20/2017 7:50 PM [...] Note | + + | Service Account, [employer] In Interface - 09/20/2017 6:25 PM [...] Note | + + | Service Account, [employer] In Interface - 09/20/2017 6:26 PM [...] now presented. Final | | | signature: Epsinoza Sanchez MD 09/20/2017 5:16 PM Preliminary: Em Cleary | | | MD Darryn 09/20/2017 1:12 PM | | + + + + + | Procedure Note | + + | Service Account, [employer] In Interface - 09/20/2017 5:17 PM PDT [...] + + + + | [facility]TC-SA[facility]HTT | 444 | ms | [facility] DEPT [...] DEPT | | | IMPRESSION | by: HUNTERJULIO ESCOBAR | | OF | | | | [...] DEPT OF | [address] | [place], [place] | | | CARDIOLOGY | [address] | [address] | | + + + + + [...] | + + + + + | [facility] | [address] | [place] [address] | | | SERVICES, CORE | VILMA [...] | + + + + + | [facility] | [address] | [place] [address] | | | SERVICES, CORE | VILMA [...] | | | LABORATORY | | | [place] | | | SERVICES, | | | [...] the MDRD equation recommended by the | [facility] | | National Kidney Disease Education Program. [...] [facility] | [address] | [place] [address] | | | SERVICES, CORE | PARK [...] | + + + + + | [facility] | [address] | [place] [address] | | | SERVICES, CORE | PARK [...] [facility] | [address] | [place] [address] | | | SERVICES, CORE | VILMA [...] | | | LABORATORY | | | [place] | | | SERVICES, | | | [...] the MDRD equation recommended by the | [facility] | | National Kidney Disease Education Program. [...] [facility] | [address] | [place] [address] | | | SERVICES, CORE | PARK [...] | + + + + + | [facility] | [address] [facility] | [place] [address] | | | SERVICES, CORE | PARK [...] | [facility] | [address] [facility] | [place] [address] | | | SERVICES, CORE | PARK [...] | | | LABORATORY | | | [place] | | | SERVICES, | | | [...] the MDRD equation recommended by the | [facility] | | National Kidney Disease Education Program. [...] | + + + + + | [facility] | [address] | [place] [address] | | | [facility] | [address] [...] Note | + + | Service Account, [employer] Res In Interface - 09/17/2017 11:53 AM [...] [facility] | [address] | [place] [address] | | | NATALEE WORTHINGTON | VILMA [...] | + + + + + | [facility] | [address] | [place] [address] | | | NATALEE WORTHINGTON | [address] [...] | | | LABORATORY | | | [place] | | | SERVICES, | | | [...] | + + + + + | [facility] | [address] | [place] [address] | | | SERVICES, CORE | [address] | | | + + + + + X-RAY PORTABLE CHEST PICC LINE CHECK (09/16/2017 1:11 PM PDT) + + | Specimen | + + | | + + + + + | Narrative | Performed At | + + + | EXAM: NE CHEST PICC LINE CHECK HISTORY: PICC placement [...] Note | + + | Service Account, [employer] In Interface - 09/16/2017 1:34 PM PDT EXAM: NE CHEST | | PICC LINE CHECK HISTORY: [...] At | + + + | EXAM: NE CHEST PICC LINE CHECK HISTORY: Evaluate PICC [...] Note | + + | Service Account, [employer] In Interface - 09/16/2017 11:41 AM PDT EXAM: NE CHEST | | PICC LINE CHECK HISTORY: [...] [facility] | [address] | [place] [address] | | | NATALEE WORTHINGTON | [address] [...] | + + + + + | [facility] | [address] [facility] | [place] [address] | | | SERVICES, CORE | PARK [...] | | | LABORATORY | | | [place] | | | SERVICES, | | | [...] | + + + + + | [facility] | [address] | [place] [address] | | | SERVICES, CORE | [address] | | | + + + + + X-RAY PORTABLE CHEST 1 VIEW (09/15/2017 3:28 PM PDT) + + | Specimen | + + | | + + + + + | Narrative | Performed At | + + + | EXAM: NE CHEST 1 VIEW HISTORY: COMPARISON: None. | [...] Interface - 09/15/2017 6:45 PM PDT EXAM: NE CHEST 1 | | VIEW HISTORY: COMPARISON: [...] At | + + + | EXAM: NE CHEST PICC LINE CHECK HISTORY: PICC COMPARISON: [...] Interface - 09/15/2017 6:43 PM PDT EXAM: NE CHEST | | PICC LINE CHECK HISTORY: [...] Note Indications:TPN Procedure | | | location: Unit:[facility] Room: #12 Providers: Attending [...] | pause verifies correct patient, procedure, equipment, senior support analyst | | | and site/side [...] | area Basilic vein. Catheter lot number: [id number] with a length of 55 | | [...] Note | + + | Service Account, [employer] In Interface - 09/15/2017 2:13 PM [...] [facility] | [address] | [place] [address] | | | NATALEE WORTHINGTON | [address] [...] | + + + + + | [facility] | [address] [facility] | [place] [address] | | | SERVICES, CORE | VILMA [...] | | | LABORATORY | | | [place] | | | SERVICES, | | | [...] | + + + + + | [facility] | [address] | [place] [address] | | | SERVICES, CORE | VILMA [...] | + + + + + | [facility] | [address] | [place] [address] | | | SERVICES, NATALEE | VILMA [...] [facility] | [address] | [place] [address] | | | SERVICES, CORE | VIL[address] [...] | | | LABORATORY | | | [place] | | | SERVICES, | | | [...] | + + + + + | [facility] | [address] | [place] [address] | | | SERVICES, CORE | VILMA [...] | + + + + + | [facility] | [address] | [place] [address] | | | SERVICES, CORE | PARK [...] [facility] | [address] | [place] [address] | | | SERVICES, NATALEE | VILMA [...] | | | LABORATORY | | | [place] | | | SERVICES, | | | [...] | + + + + + | [facility] | [address] | [place] [address] | | | SERVICES, CORE | VILMA [...] | + + + + + | [facility] | [address] | [place] [address] | | | SERVICES, CORE | VILMA [...] [facility] | [address] | [place] [address] | | | SERVICES, CORE | PARK [...] (H) | 70 - 99 mg/dL | [facility] | | | PLASMA | | | [...] | | | LABORATORY | | | [place] | | | SERVICES, | | | [...] | + + + + + | [facility] | [address] | [place] [address] | | | SERVICES, CORE | VILMA [...] Note | + + | Service Account, [employer] In Interface - 09/11/2017 6:22 PM [...] | + + + + + | [facility] | [address] | [place] [address] | | | SERVICES, CORE | [address] | | | + + + + + MAGNESIUM, PLASMA (09/11/2017 7:12 AM PDT) + +---------+ + + + | Component | Value | Ref Range | Performed | Pathologist | | | | | At | Signature | + +---------+ + + + | MAGNESIUM,P | 2.7 (H) | 1.6 - 2.6 mg/dL | [facility] [...] [facility] | [address] | [place] [address] | | | SERVICES, CORE | VILMA [...] | | | LABORATORY | | | [place] | | | SERVICES, | | | [...] | + + + + + | [facility] | [address] | [place] [address] | | | SERVICES, CORE | VILMA [...] | + + + + + | [facility] | [address] | [place] [address] | | | SERVICES, CORE | VILMA [...] Note | + + | Service Account, [employer] In Interface - 09/10/2017 2:08 PM [...] | | + +---------+ + + | [facility] RADIOLOGY | | | | | [facility] | | | | + +---------+ + + X-RAY PORTABLE CHEST 1 VIEW (09/10/2017 7:16 AM PDT) + + | Specimen | + + | | + + + + + | Narrative | Performed At | + + + | STUDY: NE CHEST 1 VIEW 09/10/17 07:02:01 HISTORY: Possible [...] Interface - 09/10/2017 9:25 AM PDT STUDY: NE CHEST 1 | | VIEW 09/10/17 07:02:01 [...] [facility] | [address] | [place] [address] | | | SERVICES, CORE | PARK [...] [facility] | [address] | [place] [address] | | | SERVICES, CORE | PARK [...] | + + + + + | [facility] | [address] | [place] [address] | | | SERVICES, CORE | VILMA [...] | + + + + + | [facility] | [address] [facility] | [place] [address] | | | SERVICES, CORE | [address] [...] | | | LABORATORY | | | [place] | | | SERVICES, | | | [...] the MDRD equation recommended by the | [facility] | | National Kidney Disease Education Program. [...] | + + + + + | [facility] | [address] | [place] [address] | | | SERVICES, CORE | VILMA [...] DEPT OF | [address] | [place], [place] | | | CARDIOLOGY | [address] | [address] | | + + + + + [...] [facility] | [address] | [place], [place] | | | GLORIA GENOA OF [facility] | [facility] | [address] | | | TESTS | | | [...] [facility] | [address] | [place] [address] | | | SERVICES, CORE | VILMA [...] | + + + + + | [facility] | [address] | [place] [address] | | | SERVICES, CORE | PARK [...] | | | LABORATORY | | | [place] | | | SERVICES, | | | [...] [facility] | [address] | [place] [address] | | | SERVICES, CORE | PARK [...] | + + + + + | [facility] | [address] | [place] [address] | | | SERVICES, CORE | [address] [...] | | | LABORATORY | | | [place] | | | SERVICES, | | | [...] | + + + + + | [facility] | [address] | [place] [address] | | | SERVICES, CORE | PARK [...] | + + + + + | [facility] | [address] | [place] [address] | | | SERVICES, CORE | VILMA [...] [facility] | [address] | [place] [address] | | | SERVICES, CORE | [address] [...] + + + | ANA LILIA-HALIMA | 473 | ms | [facility] DEPT [...] + + | [facility] | [address] | [place], [place] | | | CARDIOLOGY | [address] | [address] | | + + + + + X-RAY PORTABLE CHEST 1 VIEW (09/07/2017 6:12 AM PDT) + + | Specimen | + + | | + + + + + | Narrative | Performed At | + + + | EXAM: NE CHEST 1 VIEW HISTORY: Post extubation COMPARISON: [...] Interface - 09/07/2017 10:46 AM PDT EXAM: NE CHEST 1 | | VIEWHISTORY: Post extubationCOMPARISON: [...] [facility] | [address] | [place] [address] | | | NATALEE WORTHINGTON | [address] [...] | | | LABORATORY | | | [place] | | | SERVICES, | | | [...] | + + + + + | [facility] | [address] | [place] [address] | | | SERVICES, NATALEE | VILMA [...] | + + + + + | [facility] | [address] | [place] [address] | | | SERVICES, CORE | [address] [...] Note | + + | Service Account, [employer] In Interface - 09/07/2017 10:46 AM [...] [facility] | [place], [place] | | | CARDIOLOGY | [address] | [address] | | + + + + + [...] | | | attempt. Midline lot number [id number]; there was positive blood | | | [...] | | | LABORATORY | | | [place] | | | SERVICES, | | | [...] [facility] | [address] | [place] [address] | | | ELIN, NATALEE | [address] [...] | + + + + + | [facility] | [address] | [place] [address] | | | SERVICES, CORE | [address] | | | + + + + + X-RAY PORTABLE CHEST 1 VIEW (09/05/2017 5:33 AM PDT) + + | Specimen | + + | | + + + + + | Narrative | Performed At | + + + | EXAM: NE CHEST 1 VIEW HISTORY: Evaluation after chest [...] Interface - 09/05/2017 10:16 AM PDT EXAM: NE CHEST 1 | | VIEW HISTORY: Evaluation [...] | + + + + + | [facility] | [address] | [place] [address] | | | SERVICES, CORE | PARK [...] | + + + + + | [facility] | [address] | [place] [address] | | | ELIN, NATALEE | VILMA [...] | | | LABORATORY | | | [place] | | | SERVICES, | | | [...] | + + + + + | [facility] | [address] [facility] | [place] [address] | | | SERVICES, CORE | P[address] [...] | | | LABORATORY | | | [place] | | | SERVICES, | | | [...] the MDRD equation recommended by the | [facility] | | National Kidney Disease Education Program. [...] | + + + + + | [facility] | [address] [facility] | [place] [address] | | | [facility] | [address] [...] tomorrow morning. CB Henson Pager / ID: [phone] | | + + + CULTURE, SPUTUM [...] + | [facility] - | [address] | [place] [address] | | | [place] | | | [...] [facility] | [address] | [place] [address] | | | SERVICES, NATALEE | [address] | | | + + + + + UA, TITO ONLY (09/04/2017 1:17 PM PDT) + + [...] | [facility] | | | GRAVITY | [place] performed by | | LABORATORY | | [...] [facility] | [address] | [place] [address] | | | SERVICES, NATALEE | PARK [...] | + + + + + | [facility] | [address] | [place] [address] | | | SERVICES, CORE | [address] | | | + + + + + CULTURE, BLOOD BACTI & YEAST [facility] (09/04/2017 1:16 PM PDT) + + + [...] [facility] | [address] | [place] [address] | | | SERVICES, CORE | [address] [...] + + + + | LAUREN | 474 | ms | [facility] [...] DEPT OF | [address] | [place], [place] | | | CARDIOLOGY | [address] | [address] | | + + + + + X-RAY PORTABLE CHEST 1 VIEW (09/04/2017 7:04 AM PDT) + + | Specimen | + + | | + + + + + | Narrative | Performed At | + + + | EXAM: NE CHEST 1 VIEW HISTORY: Hypoxia. Intubated. | [...] Interface - 09/04/2017 9:49 AM PDT EXAM: NE CHEST 1 | | VIEW HISTORY: Hypoxia. [...] | + + + + + | [facility] | [address] | [place] [address] | | | SERVICES, NATALEE | [address] [...] | + + + + + | [facility] | [address] | [place] [address] | | | SERVICES, CORE | [address] [...] | | | LABORATORY | | | [place] | | | SERVICES, | | | [...] | + + + + + | [facility] | [address] | [place] [address] | | | SERVICES, CORE | [address] | | | + + + + + MAGNESIUM, PLASMA (09/04/2017 12:29 AM PDT) + +-------+ + + + | Component | Value | Ref Range | Performed | Pathologist | | | | | At | Signature | + +-------+ + + + | MAGNESIUM,P | 1.9 | 1.6 - 2.6 mg/dL | [facility] [...] | + + + + + | [facility] | [address] | [place] [address] | | | NATALEE WORTHINGTON | [address] [...] (H) | 70 - 99 mg/dL | [facility] - | | | GLUCOSE, | | [...] [facility] | [address] | [place], [place] | | | GLORIA GENAO OF CARE | [address] | [address] | | | TESTS | | | [...] [facility] | [address] | [place], [place] | | | GLORIA GENAO OF CARE | [facility] | [address] | | | TESTS | | | [...] [facility] | [address] | [place], [place] | | | GLORIA GENAO OF CARE | [facility] | [address] | | | TESTS | | | [...] + + + | [facility] | [address] | [place], [place] | | | GLORIA GENAO OF [facility] | [address] | [address] | | | TESTS | | | [...] detected | AIRPORT - | | | [facility] | + + + + + + + + | Performing | Address | City/State/Zipcode | Phone Number | | Organization | | | | + + + + + | [facility] | [address] | [place] [address] | | | [place] | | | [...] [facility] | [address] | [place] [address] | | | SERVICES, NATALEE | [address] [...] Note | + + | Service Account, [employer] In Interface - 09/03/2017 9:54 AM PDT [...] + | [facility] | [address] | [place] [address] | | | [facility] [...] | + + + + + | [facility] | [address] | [place] [address] | | | SERVICES, CORE | [address] [...] | + + + + + | [facility] | [address] | [place] [address] | | | SERVICESNATALEE | [address] [...] | | | LABORATORY | | | [place] | | | SERVICES, | | | [...] | + + + + + | [facility] | [address] [facility] | [place] [address] | | | SERVICES, CORE | [address] [...] | + + + + + | [facility] | [address] [facility] | [place] [address] | | | SERVICES, NATALEE | [address] | | | + + + + + OPERATION RECORD (09/02/2017 6:53 PM PDT) + + | Procedure Note | + + | Fidelina Shields MD - 09/02/2017 6:53 PM PDT Date of Service: 09/02/2017 | | Attending Surgeon: Fidelina Shields MD Global Account Executive(s): | | Ajay Butts MD, resident. Preoperative [...] electrocautery, suture ligature, | | surgicel and Avlin. The lesser sac was opened along the [...] ICU in stable condition.Ajay Butts, | | GHAZALA Christianson/FELYD: 09/02/2017 18:15:29DT: 09/02/2017 18:53:52Job #: | | [id number] to federal Medicare and Medicaid regulations I was present for | | the entire procedure.Fidelina Tenorio ProfessorDepartment of SurgeryOffice: | | [phone]: [id number] has been electronically signed by Fidelina Shields MD, | | 09/03/2017 at 9:11 AM. | | | | | |Fidelina Shields MD | |Hydraulic Barker Operator | |Department of Surgery | |Office: [phone] | |Pager: [phone] | | | |This has been electronically [...] | + + + + + | [facility] | [address] | [place] [address] | | | SERVICES, CORE | [address] [...] [facility] | [address] | [place] [address] | | | SERVICES, CORE | PARK [...] detected | AIRPORT - | | | [place] | + + + + + + + + | Performing | Address | City/State/Zipcode | Phone Number | | Organization | | | | + + + + + | [facility] - | [address] | [place] [address] | | | [facility] | | | | + + + [...] [facility] | [address] | [place] [address] | | | SERVICES, CORE | PARK [...] | | | LABORATORY | | | [place] | | | SERVICES, | | | [...] | + + + + + | [facility] | [address] [facility] | [place] [address] | | | NATALEE [place] | [address] [...] Note | + + | Service Account, [employer] - 09/02/2017 4:25 PM PDT [...] | | contact: INGRID Butts, R4 Surgery [phone] Pursuant | | | to federal Medicare and Medicaid regulations I was present for the | | | entire procedure. Fidelina Shields MD Hydraulic Barker Operator | | | Department of Surgery Office: [phone] Pager: [phone] This has | | | been electronically [...] [facility] | [address] | [place] [address] | | | SERVICES, CORE | V[address]MA [...] | + + + + + | [facility] | [address] [facility] | [place] [address] | | | SERVICES, CORE | [address] | | | + + + + + OPERATION RECORD (09/02/2017 6:51 AM PDT) + ---+ | Procedure Note | + ---+ | Fidelina Shields MD - 09/02/2017 6:51 AM PDT Date of Service: 09/01/2017 | | Attending Surgeon: Fidelina Shields MD Global Account Executive(s): Haim Peralta MD. | | Ajay Butts [...] 09/02/2017 06:17:53DT: 09/02/2017 | | 06:51:37Job #: [id number] to federal Medicare and Medicaid regulations I | | was present for the entire procedure.Fidelina Shields MDAssdioni ProfessorDepartment of | | SurgeryOffice: [phone]: [id number] has been electronically signed by Fidelina Whitman | | MD Cornelius, 09/02/2017 at 10:40 AM. | | | | | |Pursuant to federal Medicare and Medicaid regulations I was present for the entire procedur e. | | | | | | | |Fidelina Shields MD | |Hydraulic Barker Operator | |Department of Surgery | |Office: [phone] | |Pager: [phone] | | | |This has been electronically [...] | + + + + + | [facility] | [address] | [place] [address] | | | SERVICES, CORE | VILMA [...] [facility] | [address] | [place] [address] | | | SERVICES, CORE | PARK [...] + + + + | PRODUCT | [id number] | | [facility] | | | UNIT [...] + + + + | EXPIRATION | [id number] | | [facility] | | | DATE [...] + + + + | BLOOD | [id number] | | [facility] | | | PRODUCT [...] [facility] | [address] | [place] [address] | | | SERVICES, | [address] [...] Note | + + | Service Account, RadiVoxa Res In Interface - 09/02/2017 11:22 AM [...] | + + + + + | [facility] | [address] | [place] [address] | | | SERVICES, CORE | PARK [...] | | | LABORATORY | | | [place] | | | SERVICES, | | | [...] | + + + + + | [facility] | [address] | [place] [address] | | | SERVICES, CORE | VILMA [...] | + + + + + | [facility] | [address] | [place] [address] | | | SERVICES, CORE | VILMA [...] (http://www.cdc.gov/mmwr | | | | | | [email or web address] | | | | | | [email or web address]), [...] [facility] - | | | | by THUBIT, | | AIRPORT - | | | | | | [place] | | | | [facility] | | | | | | Rogelio Pickard [facility] | | | | | | [id number] | | | | | | | | | | | | [email or web address].[email or web address], Gui | | | | | | [...] + | [facility] AIRPORT - | [address] | [place] [address] | | | [place] | | | | + + + [...] | + + + + + | [facility] | [address] | [place] [address] | | | SERVICES, CORE | VILMA [...] [facility] | [address] | [place] [address] | | | SERVICES, CORE | PARK [...] At | + + + | EXAM: NE CHEST 1 VIEW HISTORY: Hypoxemia COMPARISON: 09/01/17 [...] Interface - 09/02/2017 10:34 AM PDT EXAM: NE CHEST 1 | | VIEW HISTORY: HypoxemiaCOMPARISON: [...] [facility] | [address] | [place] [address] | | | SERVICES, CORE | PARK [...] | + + + + + | [facility] | [address] | [place] [address] | | | SERVICES, CORE | VILMA [...] + + + + | PRODUCT | [id number] | | [facility] | | | UNIT [...] + + + + | EXPIRATION | [id number] | | [facility] | | | DATE [...] + + + + | BLOOD | [id number] | | [facility] | | | PRODUCT [...] | + + + + + | [facility] | [address] | [place] [address] | | | SERVICES, | [address] [...] [facility] | [address] | [place] [address] | | | SERVICES, CORE | PARK [...] [facility] | [address] | [place] [address] | | | SERVICES, CORE | PARK [...] [facility] | [address] | [place] [address] | | | SERVICES, CORE | VILMA [...] | | | LABORATORY | | | [place] | | | SERVICES, | | | [...] the MDRD equation recommended by the | [facility] | | National Kidney Disease Education Program. [...] | + + + + + | [facility] | [address] [facility] | [place] [address] | | | NATALEE WORTHINGTON | VILMA [...] | + + + + + | [facility] | [address] | [place] [address] | | | NATALEE WORTHINGTON | PARK [...] [facility] | [address] | [place] [address] | | | ELIN, NATALEE | VILMA [...] micropuncture access set was exchanged for a [employer] wire. Under | | | fluoroscopic guidance, a 5 Fr flush catheter was used to evaluate the | | | distal abdominal aorta and pelvic vasculature. A wire and catheter | | | were then used to select the left common and internal iliac arteries | | | from the right BUSINESS REPORTING DEVELOPER approach. DSA was performed from the [...] Note | + + | Service Account, RadiVoxa Res In Interface - 09/01/2017 4:07 PM [...] micropuncture access set was exchanged for a [employer] wire. Under fluoroscopic guidance, | | a 5 Fr flush catheter was used to evaluate the distal abdominal aorta and pelvic | | vasculature. A wire and catheter were then used to select the left common and internal | | iliac arteries from the right BUSINESS REPORTING DEVELOPER approach. DSA was performed from the [...] micropuncture access set was exchanged for a [employer] wire. Under fluoroscopic guidance, a 5 Fr flush catheter was used | |to evaluate the distal abdominal aorta and pelvic vasculature. A wire and catheter were th en used to select the left common and internal iliac arteries from the right BUSINESS REPORTING DEVELOPER approach. DSA was performed from the [...] | | | + +---------+ + + ABG-KENRICK WALDRON POC (09/01/2017 1:36 PM PDT) + + [...] + + + + + | [facility] | [address] [facility] [address] | [place], [place] | | | [facility] | [address] | [address] | | | TESTS | | | | + + + + + EXPLORATORY LAPAROTOMY (09/01/2017 12:31 PM PDT) + + + | Narrative | Performed At | + + + | Fidelina Shields MD 09/01/2017 12:42 PM BRIEF OPERATIVE NOTE: | | | Date: 09/01/2017 Author: Fidelina Shields MD | | | Attending Physician: Fidelina Shields MD Global Account Executive(s): Haim Peralta | | | , Vicente [...] case. | | | Fidelina Shields MD Hydraulic Barker Operator Division of Trauma, | | | Critical Care and Acute Care Surgery Office: [phone] Pager: | | | [phone] | | + + + ABG-FULL ABL, [...] - [facility] | [address] | [place], [place] | | | [facility] | [address] | [address] | | | TESTS | | | [...] [facility] | [address] | [place] [address] | | | NATALEE WORTHINGTON | VILMA [...] - [facility] | [address] | [place], [place] | | | [facility] | [address] | [address] | | | TESTS | | | [...] + + + + | PRODUCT | [id number] | | [facility] | | | UNIT [...] + + + + | EXPIRATION | [id number] | | [facility] | | | DATE [...] + + + + | BLOOD | [id number] | | [facility] | | | PRODUCT [...] | + + + + + | [facility] | [address] | [place] [address] | | | SERVICES, | [address] [...] + + + + | PRODUCT | [id number] | | [facility] | | | UNIT [...] + + + + | EXPIRATION | [id number] | | [facility] | | | DATE [...] + + + + | BLOOD | [id number] | | [facility] | | | PRODUCT [...] | + + + + + | [facility] | [address] | [place] [address] | | | SERVICES, | [address] [...] + + + + | PRODUCT | [id number] | | [facility] | | | UNIT [...] + + + + | EXPIRATION | [id number] | | [facility] | | | DATE [...] + + + + | BLOOD | [id number] | | [facility] | | | PRODUCT [...] | + + + + + | [facility] | [address] | [place] [address] | | | SERVICES, | [address] [...] + + + + | PRODUCT | [id number] | | [facility] | | | UNIT [...] + + + + | EXPIRATION | [id number] | | [facility] | | | DATE [...] + + + + | BLOOD | [id number] | | [facility] | | | PRODUCT [...] [facility] | [address] | [place] [address] | | | SERVICES, | [address] [...] + + + + | PRODUCT | [id number] | | [facility] | | | UNIT [...] + + + + | EXPIRATION | [id number] | | [facility] | | | DATE [...] + + + + | BLOOD | [id number] | | [facility] | | | PRODUCT [...] [facility] | [address] | [place] [address] | | | SERVICES, | [address] [...] + + + + | PRODUCT | [id number] | | [facility] | | | UNIT [...] + + + + | EXPIRATION | [id number] | | [facility] | | | DATE [...] + + + + | BLOOD | [id number] | | [facility] | | | PRODUCT [...] [facility] | [address] | [place] [address] | | | SERVICES, | [address] [...] + + + + | PRODUCT | [id number] | | [facility] | | | UNIT [...] + + + + | EXPIRATION | [id number] | | [facility] | | | DATE [...] + + + + | BLOOD | [id number] | | [facility] | | | PRODUCT [...] [facility] | [address] | [place] [address] | | | SERVICES, | [address] [...] + + + + | PRODUCT | [id number] | | [facility] | | | UNIT [...] + + + + | EXPIRATION | [id number] | | [facility] | | | DATE [...] + + + + | BLOOD | [id number] | | [facility] | | | PRODUCT [...] [facility] | [address] | [place] [address] | | | SERVICES, | [address] [...] + + + + | PRODUCT | [id number] | | [facility] | | | UNIT [...] + + + + | EXPIRATION | [id number] | | [facility] | | | DATE [...] + + + + | BLOOD | [id number] | | [facility] | | | PRODUCT [...] [facility] | [address] | [place] [address] | | | SERVICES, | [address] [...] + + + + | PRODUCT | [id number] | | [facility] | | | UNIT [...] + + + + | EXPIRATION | [id number] | | [facility] | | | DATE [...] + + + + | BLOOD | [id number] | | [facility] | | | PRODUCT [...] | + + + + + | [facility] | [address] | [place] [address] | | | SERVICES, | [address] [...] + + + + | PRODUCT | [id number] | | [facility] | | | UNIT [...] + + + + | EXPIRATION | [id number] | | [facility] | | | DATE [...] + + + + | BLOOD | [id number] | | [facility] | | | PRODUCT [...] | + + + + + | [facility] | [address] | [place] [address] | | | SERVICES, | [address] [...] + + + + | PRODUCT | [id number] | | [facility] | | | UNIT [...] + + + + | EXPIRATION | [id number] | | [facility] | | | DATE [...] + + + + | BLOOD | [id number] | | [facility] | | | PRODUCT [...] | + + + + + | [facility] | [address] | [place] [address] | | | SERVICES, | [address] [...] + + + + | PRODUCT | [id number] | | [facility] | | | UNIT [...] + + + + | EXPIRATION | [id number] | | [facility] | | | DATE [...] + + + + | BLOOD | [id number] | | [facility] | | | PRODUCT [...] + + | [facility] | [address] | [place] [address] | | | SERVICES, | [address] [...] + + + + | PRODUCT | [id number] | | [facility] | | | UNIT [...] + + + + | EXPIRATION | [id number] | | [facility] | | | DATE [...] + + + + | BLOOD | [id number] | | [facility] | | | PRODUCT [...] [facility] | [address] | [place] [address] | | | SERVICES, | [address] [...] + + + + | PRODUCT | [id number] | | [facility] | | | UNIT [...] + + + + | EXPIRATION | [id number] | | [facility] | | | DATE [...] + + + + | BLOOD | [id number] | | [facility] | | | PRODUCT [...] [facility] | [address] | [place] [address] | | | SERVICES, | [address] [...] + + + + | PRODUCT | [id number] | | [facility] | | | UNIT [...] + + + + | EXPIRATION | [id number] | | [facility] | | | DATE [...] + + + + | BLOOD | [id number] | | [facility] | | | PRODUCT [...] [facility] | [address] | [place] [address] | | | SERVICES, | [address] [...] + + + + | PRODUCT | [id number] | | [facility] | | | UNIT [...] + + + + | EXPIRATION | [id number] | | [facility] | | | DATE [...] + + + + | BLOOD | [id number] | | [facility] | | | PRODUCT [...] [facility] | [address] | [place] [address] | | | SERVICES, | [address] [...] + + + + | PRODUCT | [id number] | | [facility] | | | UNIT [...] + + + + | EXPIRATION | [id number] | | [facility] | | | DATE [...] + + + + | BLOOD | [id number] | | [facility] | | | PRODUCT [...] [facility] | [address] | [place] [address] | | | SERVICES, | [address] [...] + + + + | PRODUCT | [id number] | | [facility] | | | UNIT [...] + + + + | EXPIRATION | [id number] | | [facility] | | | DATE [...] + + + + | BLOOD | [id number] | | [facility] | | | PRODUCT [...] | [facility] | [address] | [place] [address] | | | SERVICES, | [address] [...] + + + + | PRODUCT | [id number] | | [facility] | | | UNIT [...] + + + + | EXPIRATION | [id number] | | [facility] | | | DATE [...] + + + + | BLOOD | [id number] | | [facility] | | | PRODUCT [...] [facility] | [address] | [place] [address] | | | SERVICES, | [address] [...] + + + + | PRODUCT | [id number] | | [facility] | | | UNIT [...] + + + + | EXPIRATION | [id number] | | [facility] | | | DATE [...] + + + + | BLOOD | [id number] | | [facility] | | | PRODUCT [...] | + + + + + | [facility] | [address] | [place] [address] | | | SERVICES, | [address] [...] + + + + | PRODUCT | [id number] | | [facility] | | | UNIT [...] + + + + | EXPIRATION | [id number] | | [facility] | | | DATE [...] + + + + | BLOOD | [id number] | | [facility] | | | PRODUCT [...] | + + + + + | [facility] | [address] | [place] [address] | | | SERVICES, | [address] [...] + + + + | PRODUCT | [id number] | | [facility] | | | UNIT [...] + + + + | EXPIRATION | [id number] | | [facility] | | | DATE [...] + + + + | BLOOD | [id number] | | [facility] | | | PRODUCT [...] | + + + + + | [facility] | [address] | [place] [address] | | | SERVICES, | [address] [...] + + + + | PRODUCT | [id number] | | [facility] | | | UNIT [...] + + + + | EXPIRATION | [id number] | | [facility] | | | DATE [...] + + + + | BLOOD | [id number] | | [facility] | | | PRODUCT [...] | + + + + + | [facility] | [address] | [place] [address] | | | SERVICES, | [address] [...] + + + + | PRODUCT | [id number] | | [facility] | | | UNIT [...] + + + + | EXPIRATION | [id number] | | [facility] | | | DATE [...] + + + + | BLOOD | [id number] | | [facility] | | | PRODUCT [...] [facility] | [address] | [place] [address] | | | SERVICES, | [address] [...] + + + + | PRODUCT | [id number] | | [facility] | | | UNIT [...] + + + + | EXPIRATION | [id number] | | [facility] | | | DATE [...] + + + + | BLOOD | [id number] | | [facility] | | | PRODUCT [...] [facility] | [address] | [place] [address] | | | SERVICES, | [...] | + + + + + | [facility] | [address] [facility] | [place] [address] | | | SERVICES, CORE | [address]IL[address] [...] | | | LABORATORY | | | [place] | | | SERVICES, | | | [...] | + + + + + | [facility] | [address] | [place] [address] | | | SERVICES, CORE | PARK [...] | + + + + + | [facility] | [address] | [place] [address] | | | SERVICES, CORE | VILMA [...] [facility] | | | | | | [facility] | | [...] - [facility] | [address] | [place], [place] | | | [facility] | [address] | [address] | | | TESTS | | | | + + + + + X-RAY PORTABLE CHEST 1 VIEW (09/01/2017 9:18 AM PDT) + + | Specimen | + + | | + + + + + | Narrative | Performed At | + + + | EXAM: NE CHEST 1 VIEW HISTORY: Intubated COMPARISON: 08/31/17 [...] Interface - 09/02/2017 1:23 PM PDT EXAM: NE CHEST 1 | | VIEW HISTORY: IntubatedCOMPARISON: [...] Note | + + | Service Account, [employer] In Interface - 09/01/2017 1:40 PM PDT [...] + + + + | PRODUCT | [id number] | | [facility] | | | UNIT [...] + + + + | EXPIRATION | [id number] | | [facility] | | | DATE [...] + + + + | BLOOD | [id number] | | [facility] | | | PRODUCT [...] [facility] | [address] | [place] [address] | | | SERVICES, | [address] [...] + + + + | PRODUCT | [id number] | | [facility] | | | UNIT [...] + + + + | EXPIRATION | [id number] | | [facility] | | | DATE [...] + + + + | BLOOD | [id number] | | [facility] | | | PRODUCT [...] [facility] | [address] | [place] [address] | | | SERVICES, | [address] [...] + + + + | PRODUCT | [id number] | | [facility] | | | UNIT [...] + + + + | EXPIRATION | [id number] | | [facility] | | | DATE [...] + + + + | BLOOD | [id number] | | [facility] | | | PRODUCT [...] [facility] | [address] | [place] [address] | | | SERVICES, | [address] [...] + + + + | PRODUCT | [id number] | | [facility] | | | UNIT [...] + + + + | EXPIRATION | [id number] | | [facility] | | | DATE [...] + + + + | BLOOD | [id number] | | [facility] | | | PRODUCT [...] [facility] | [address] | [place] [address] | | | SERVICES, | [address] [...] + + + + | PRODUCT | [id number] | | [facility] | | | UNIT [...] + + + + | EXPIRATION | [id number] | | [facility] | | | DATE [...] + + + + | BLOOD | [id number] | | [facility] | | | PRODUCT [...] [facility] | [address] | [place] [address] | | | SERVICES, | [address] [...] + + + + | PRODUCT | [id number] | | [facility] | | | UNIT [...] + + + + | EXPIRATION | [id number] | | [facility] | | | DATE [...] + + + + | BLOOD | [id number] | | [facility] | | | PRODUCT [...] [facility] | [address] | [place] [address] | | | SERVICES, | [address] [...] + + + + | PRODUCT | [id number] | | [facility] | | | UNIT [...] + + + + | EXPIRATION | [id number] | | [facility] | | | DATE [...] + + + + | BLOOD | [id number] | | [facility] | | | PRODUCT [...] [facility] | [address] | [place] [address] | | | SERVICES, | [address] [...] + + + + | PRODUCT | [id number] | | [facility] | | | UNIT [...] + + + + | EXPIRATION | [id number] | | [facility] | | | DATE [...] + + + + | BLOOD | [id number] | | [facility] | | | PRODUCT [...] | + + + + + | [facility] | [address] | [place] [address] | | | SERVICES, | [address] [...] + + + + | PRODUCT | [id number] | | [facility] | | | UNIT [...] + + + + | EXPIRATION | [id number] | | [facility] | | | DATE [...] + + + + | BLOOD | [id number] | | [facility] | | | PRODUCT [...] | [facility] | [address] [facility] | [place] [address] | | | SERVICES, | [address] [...] | + + + + + | [facility] | [address] | [place] [address] | | | NATALEE WORTHINGTON | VIL[address] [...] | + + + + + | [facility] | [address] | [place] [address] | | | SERVICES, CORE | VIL[address] [...] Discussed with | | | trauma ICU consultants intern by Dr. Yang at 4:38 AM. [...] interspinous ligament is injured.Discussed with trauma ICU consultants intern | | by Dr. Yang at 4:38 AM.I have personally reviewed the images and, if necessary, | | edited the report. I agree with the report as now presented. | |3. Extensive soft tissue edema extending into the cervical and upper thoracic interspinous space, suggestive of interspinous ligament is injured. | | | |Discussed with trauma ICU consultants intern by Dr. Yang at 4:38 AM. [...] | | | LABORATORY | | | [place] | | | SERVICES, | | | [...] | + + + + + | [facility] | [address] [facility] | [place] [address] | | | SERVICES, CORE | VILMA [...] [facility] | [address] | [place] [address] | | | SERVICES, CORE | PARK [...] [facility] | [address] | [place] [address] | | | SERVICES, CORE | PARK [...] | + + + + + | [facility] | [address] | [place] [address] | | | SERVICES, NATALEE | VILMA [...] pleural spaced was performed. A 32 size Taiwanese chest tube was | | | placed [...] | ventricles. Discussed with the trauma ICU consultants intern at 12:12 AM by | | [...] ventricles.Discussed with | | the trauma ICU consultants intern at 12:[address] Yang.I [...] | | |Discussed with the trauma ICU consultants intern at 12:[address] Yang. [...] [facility] | [address] | [place], [place] | | | [facility] | [address] | [address] | | | TESTS | | | [...] [facility] | [address] | [place] [address] | | | SERVICES, CORE | PARK [...] | + + + + + | [facility] | [address] | [place] [address] | | | SERVICES, CORE | VILMA [...] | | + +---------+ + + | [facility] | | | | | VOICE [...] | + + + + + | [facility] | [address] | [place] [address] | | | [facility] | [address] | | | + + + + + X-RAY PORTABLE CHEST 1 VIEW (08/31/2017 7:07 PM PDT) + + | Specimen | + + | | + + + + + | Narrative | Performed At | + + + | STUDY: NE CHEST 1 VIEW HISTORY: Trauma COMPARISON: CT [...] Interface - 09/01/2017 1:44 PM PDT STUDY: NE CHEST 1 | | VIEWHISTORY: TraumaCOMPARISON: CT [...] | + + + + + | [facility] | [address] | [place] [address] | | | SERVICES, CORE | PARK [...] Note | + + | Service Account, [employer] In Interface - 08/31/2017 8:22 PM PDT [...] Note | + + | Service Account, [employer] In Interface - 09/01/2017 10:12 AM [...] rib, nondisplaced-Left | | 1st rib fracture, dpplqdpvhfjt-Zix-xcmawyagg left lateral 8th rib fracture-T12 fracture | [...] [facility] | [address] | [place] [address] | | | SERVICES, | [address] [...] [facility] | [address] | [place] [address] | | | SERVICES, | [address] [...] [facility] | [address] | [place] [address] | | | SERVICES, | [address] [...] [facility] | [address] | [place], [place] | | | [facility] | [address] | [address] | | | TESTS | | | [...] + + + | [facility] | [address] | [place], [place] | | | [facility] | [facility] | [address] | | | TESTS | | | [...] | | POC | | mmol/L | [facility] | | [...] [facility] | [address] | [place], [place] | | | [facility] | [address] | [address] | | | TESTS | | | [...] [facility] | [address] | [place], [place] | | | [facility] | [address] | [address] | | | TESTS | | | [...] + + + + | PRODUCT | [id number] | | [facility] | | | UNIT [...] + + + + | EXPIRATION | [id number] | | [facility] | | | DATE [...] + + + + | BLOOD | [id number] | | [facility] | | | PRODUCT [...] [facility] | [address] | [place] [address] | | | SERVICES, | [address] [...] + + + + | PRODUCT | [id number] | | [facility] | | | UNIT [...] + + + + | EXPIRATION | [id number] | | [facility] | | | DATE [...] + + + + | BLOOD | [id number] | | [facility] | | | PRODUCT [...] | + + + + + | [facility] | [address] | [place] [address] | | | SERVICES, | [address] [...] + + + + | PRODUCT | [id number] | | [facility] | | | UNIT [...] + + + + | EXPIRATION | [id number] | | [facility] | | | DATE [...] + + + + | BLOOD | [id number] | | [facility] | | | PRODUCT [...] | + + + + + | [facility] | [address] | [place] [address] | | | SERVICES, | [address] [...] + + + + | PRODUCT | [id number] | | [facility] | | | UNIT [...] + + + + | EXPIRATION | [id number] | | [facility] | | | DATE [...] + + + + | BLOOD | [id number] | | [facility] | | | PRODUCT [...] | + + + + + | [facility] | [address] | [place] [address] | | | SERVICES, | [address] [...] + + + + | PRODUCT | [id number] | | [facility] | | | UNIT [...] + + + + | EXPIRATION | [id number] | | [facility] | | | DATE [...] + + + + | BLOOD | [id number] | | [facility] | | | PRODUCT [...] | + + + + + | [facility] | [address] | [place] [address] | | | SERVICES, | [address] [...] + + + + | PRODUCT | [id number] | | [facility] | | | UNIT [...] + + + + | EXPIRATION | [id number] | | [facility] | | | DATE [...] + + + + | BLOOD | [id number] | | [facility] | | | PRODUCT [...] | + + + + + | [facility] | [address] | [place] [address] | | | SERVICES, | [address] [...] + + + + | PRODUCT | [id number] | | [facility] | | | UNIT [...] + + + + | EXPIRATION | [id number] | | [facility] | | | DATE [...] + + + + | BLOOD | [id number] | | [facility] | | | PRODUCT [...] [facility] | [address] | [place] [address] | | | SERVICES, | [...] + + + + | PRODUCT | [id number] | | [facility] | | | UNIT [...] + + + + | EXPIRATION | [id number] | | [facility] | | | DATE [...] + + + + | BLOOD | [id number] | | [facility] | | | PRODUCT [...] [facility] | [address] | [place] [address] | | | SERVICES, | [address] [...] | + + + + + | [facility] | [address] | [place] [address] | | | SERVICES, CORE | [address] [...] | | | LABORATORY | | | [place] | | | SERVICES, | | | [...] | + + + + + | [facility] | [address] | [place] [address] | | | SERVICES, CORE | [address] [...] [facility] | [address] | [place] [address] | | | SERVICES, CORE | [address] | | | + + + + + ETHANOL (ALCOHOL), BLOOD (08/31/2017 4:50 PM PDT) + +--------+ + + + | Component | Value | Ref Range | Performed | Pathologist | | | | | At | Signature | + +--------+ + + + | ETHANOL | 41 (H) | <10 mg/dL | [facility] | | | (ALCOHOL) | | | [...] [facility] | [address] | [place] [address] | | | SERVICES, CORE | PARK [...] | + + + + + | [facility] | [address] | [place] [address] | | | SERVICES, CORE | PARK [...] | + + + + + | [facility] | [address] | [place] [address] | | | SERVICES, CORE | VILMA [...] | Starting 11/05/17 at 1632, | | PM PDT | [...]
--- OUTSIDE RECORDS SUMMARY | ~2019-12-20 | XMS | Clinical Summary ---
Demographics + + + | Address | [address] | | | [place] [address] | + + + | Home Phone | | + + + | Preferred Language | Unknown | + + + | Marital Status | Single | + + + | Moravian Affiliation | Unknown | + + + | Race | or | + + + | Ethnic Group | Not or | + + + Author + + + | Author | [facility] | | | and [place] | + + + | Organization | [facility] | | | and [place] [...] Team Providers + +------+ + | Care Grain Elevator Man Name | Role | Phone | + +------+ + | [facility] | PCP | | + +------+ [...] +---------+--------+ | MEDICAID [facility] | MEDICA | [id number] | | [phone] | | Medica | [...] Person | Self | [birth year] | [address] | | | al/[place] | | 1961 | [phone] | [place] [address] | | | taras | | | 1 (Home) | | + +--------+ +--------+ + + Advance Directives + + + + + | Type | Date Recorded | Patient | Explanation | | | | Team Coordinator | | + + + + + | Power of | | | | | Director Of Quality Improvement | | | | + + + [...]
--- OUTSIDE RECORDS SUMMARY | ~2019-12-20 | XMS | Encounter Summary ---
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 [facility] - 10/08/2017 6:21 AM PDTFormatting of [...] - patient unable to come out of SHIP LABORER for now - Will likely need for [...] [place] [phone] [facility] [address] [facility] [address] [phone] Associated attestation - Chaz Hernandez MD - 10/08/2017 12:16 PM PDTI saw and examined th e patient today with KESHAWN Martin, and agree with the assessement and plan a s outlined in her note. No acute events. Seems to be slowly improving from MS. Appreciate ps ychiatry recs. Chaz Hernandez MD, FACS Real Estate Developer, Trauma, Critical Care and Acute Care [...] - patient unable to come out fo SHIP LABORER for now - Will likely need for [...] G [place] [phone] [facility] [place] [address] [facility] [address] [phone] Associated attestation - Chaz Hernandez MD - 10/07/2017 11:15 AM PDTI saw and examined th e patient today with KESHAWN Martin, and agree with the assessement and plan a s outlined in her note. Will consider changing to bolus TF. Plan Gabriel-oconnor tube next week. Chaz Hernandez MD, FACS Real Estate Developer, Trauma, Critical Care and Acute Care [...] p atient unable to come out fo SHIP LABORER for now Resolved or chronic issues/Plan: #Previous [...] issues, including restraints. Venita Pruitt PA-[place] [phone] [place] [phone] [facility] [address] [place] [address] [phone] Associated attestation - Em Cunningham MD - 10/17/2017 10:13 AM PDTI was present and rou nded with the Advanced Practice Provider today . I interviewed and examined the patient. I reviewed the history, as documented today. I agree with the ASHLEY assessment and plan. TBI has remained stable. On lovenox. Will continue haldol per psych.. EM CUNNINGHAM MD [facility] [address] [place] [address] [address] [place] [address] Venita Pruitt PA-C - 10/05/2017 8:38 AM [...] p atient unable to come out fo SHIP LABORER for now Resolved or chronic issues/Plan: #Previous [...] by patient, but wound remains duke n/dry/intact. [place] removed 09/17. #Left hemothorax Chest tube placed [...] issues, including restraints. Venita Pruitt PA-C [place] [phone] [facility] [address] [place] [facility] [place] [address] [phone] Associated attestation - Shlomo Bravo MD - 10/06/2017 7:28 AM PDTFormatting of this note m ight be different from the original. I saw and examined Diogenes Temple ([id number]) with the TRAUMA team on 10/05/2017. I [...] and incen tive spirometry for pulmonary toliet. ecommerce merchandising manager for disposition planning and placement. Shlomo Bravo MD Child Life Assistant Division of Trauma and [facility] Care [facility] Center[facility] - 10/04/2017 6:36 AM PDTFormatting of [...] (baseline from previous TBI ) Neck: in [place] collar Respiratory: CTA b.l CV: RRR GI: [...] p atient unable to come out fo SHIP LABORER for now Resolved or chronic issues/Plan: #Previous [...] issues, including restraints. Venita Pruitt PA-[place] [phone] [facility] [address] [place] [facility] [phone] Associated attestation - Fidelina Shields MD - [...] and only enteral access. Fidelina Shields MD Real Estate Developer Division of Trauma, Critical Care and Acute Care Surgery Office: [phone] Pager: [phone] Leonor Torres ACNP - 10/03/2017 3:13 PM [...] (baseline from previous TBI ) Neck: in [place] collar Respiratory: CTA bilaterally, no distress CV: [...] p atient unable to come out fo SHIP LABORER for now Resolved or chronic issues/Plan: Previous [...] PDTAttending: I saw and examined Diogenes Temple ([id number]) with CB Hair on morning rounds 10/03 and agree with the assessment and plan as outlined in this note and participated in the planning of care. Mental status is slightly better, remains sedated but he is interactive and at least somewh at oriented. Enteral nutrition advancing and, as approaches goal, will turn TPN off. Place ment remains a significant issue. Fidelina Shields MD Real Estate Developer Division of Trauma, Critical Care and Acute Care Surgery Office: [phone] Pager: [phone] July Harp PA-C - 10/03/2017 12:58 PM [...] the C-collar when in bed then the SHIP LABORER when out of bed until 12/01/17. JULY HARP PA-C [facility] [address] [place] [address] Associated attestation - Magdiel Stock MD - 10/04/2017 6:02 PM PDTI performed a history a nd physical examination of the patient and discussed the management with the advanced practi ce provider, July Harp PA-C. I reviewed the advanced practice provider's note and agree w ith the plan of care as documented. Continue cervical collar and SHIP LABORER for 3 months to ensure fracture healing and prevent development of post-fracture cervical kyphosis. Magdiel Stock MD Real Estate Developer Department of Neurological Surgery [facility] [place] Sherine Sarmiento, [facility] - 10/02/2017 12:54 PM PDTFormatting [...] (baseline from previous TBI ) Neck: in [place] collar Respiratory: CTA bilaterally, lungs symmetrical, equal chest wall rise, no retractions CV: RRR GI: non tender, soft, active BS, last BM 09/30 : Patient voiding without difficulty Extremities: no peripheral edema, wiggles toes and toes pink and well perfused Musculoskeletal: 5/5 manager residential strength on right, 3/5 manager residential strength on left FEN: on TPN, transitioning [...] AMS & delirium - numerous evaluations by DIMENSION QUARRY SUPERVISOR with trials of PO - now s/p [...] . - C-collar at all times, use SHIP LABORER when OOB - Follow-up with Neurosurgery on 10/21 with repeat X-rays #Blunt abdominal trauma #Splenic laceration S/p laparotomies x2. Fascia closed 09/02 Wound vac removed by patient, but wound remains duke n/dry/intact. [place] removed 09/17. #Left hemothorax Chest tube placed [...] will decrease scheduled haldol[place] Pg [phone] Associated attestation - Fidelina Shields MD - 10/02/2017 4:40 PM PDTAttending: I saw and examined Diogenes Temple ([id number]) with KESHAWN Alexander on mornin g rounds [...] place prior to DC Fidelina Shields MD Real Estate Developer Division of Trauma, Critical Care and Acute Care Surgery Office: [phone] Pager: [phone] Sherine Sarmiento AGACNP - 10/01/2017 7:27 AM [...] (baseline from previous TBI ) Neck: in [place] collar Respiratory: CTA bilaterally, lungs symmetrical, equal chest wall rise, no retractions CV: RRR GI: non tender, soft, active BS, last BM 09/30 : Patient voiding without difficulty Extremities: no peripheral edema, wiggles toes and toes pink and well perfused Musculoskeletal: 5/5 manager residential strength on right, 3/5 manager residential strength on left FEN: on TPN Heme/ID: [...] AMS & delirium - numerous evaluations by DIMENSION QUARRY SUPERVISOR with trials of PO - now s/p modified barium swallow x2 which indicates aspiration - continue NPO - DIMENSION QUARRY SUPERVISOR reports that patient working on tongue strength [...] . - C-collar at all times, use SHIP LABORER when OOB - Follow-up with Neurosurgery on 10/21 with repeat X-rays #Blunt abdominal trauma #Splenic laceration S/p laparotomies x2. Fascia closed 09/02 Wound vac removed by patient, but wound remains duke n/dry/intact. [place] removed 09/17. #Left hemothorax Chest tube placed [...] trauma team and [place]g [phone] Associated attestation - Fidelina Shields MD - 10/02/2017 4:40 PM PDTAttending: I saw and examined Diogenes Temple ([id number]) with KESHAWN Alexander on mornin g rounds 10/01/17 and agree with the assessment and plan as outlined in this note and partic ipated in the planning of care. Will trial DHT placement today, CT head unchanged. Suspect somnolence is medication side ef fect and, if persistent, may need to wean antipsychotic doses. Fidelina Shields MD Real Estate Developer Division of Trauma, Critical Care and Acute Care Surgery Office: [phone] Pager: [phone] Christian Kelley PA-C - 09/30/2017 12:21 PM [...] Fixed and dilated on left Neck: in [place] collar Respiratory: CTA bilaterally, lungs symmetrical, equal chest wall rise, no retractions CV: RRR GI: non tender, soft, active BS, last BM 09/30 : Patient voiding without difficulty Extremities: no peripheral edema, wiggles toes and toes pink and well perfused Musculoskeletal: 5/5 manager residential strength on right, 3/5 manager residential strength on left FEN: on TPN Heme/ID: [...] AMS & delirium - numerous evaluations by DIMENSION QUARRY SUPERVISOR with trials of PO - now s/p modified barium swallow x2 which indicates aspiration - continue NPO - DIMENSION QUARRY SUPERVISOR reports that patient working on tongue strength [...] . - C-collar at all times, use SHIP LABORER when OOB - Follow-up with Neurosurgery on [...] PDTAttending: I saw and examined Diogenes Temple ([id number]) with Christian Kelley PA-C on morning rounds 09/30 and agree with the assessment and plan as outlined in this note and participated in the planning of care. Mentally slower this morning, but non-focal. Received haldol overnight for sleep. Repeat head CT was unchanged so suspect etiology of slowed responsiveness is the antipsychotic dose . DIMENSION QUARRY SUPERVISOR believes that, once collar off, may be able to take PO more effectively and thus will hold off on surgical feeding access. TPN is a temporary solution and if patient remains kaye nable will trial DHT tomorrow. Working with psychiatry for medication recommendations. Fidelina Shields MD Real Estate Developer Division of Trauma, Critical Care and Acute Care Surgery Office: [phone] Pager: [phone] July Harp PA-C - 09/30/2017 8:23 AM PDTBrief Neurosurgery Wound Check: Wound is dry, without erythema, not fluctuant. No acute swelling. Nylon in place. Will plan to follow peripherally for wound checks and remove nylons on 10/09. JULY HARP PA-C [facility] [address] [place] [address] Christian Begum PA-C - 09/29/2017 7:15 AM [...] and EOMs intact to exam Neck: in [place] collar Respiratory: CTA bilaterally, lungs symmetrical, equal [...] AMS & delirium - numerous evaluations by DIMENSION QUARRY SUPERVISOR with trials of PO - now s/p [...] . - C-collar at all times, use SHIP LABORER when OOB - Follow-up with Neurosurgery on [...] PDTAttending: I saw and examined Diogenes Temple ([id number]) with Christian Kelley PA-C on morning rounds [...] in conjunction with psychiatry. Fidelina Shields MD Real Estate Developer Division of Trauma, Critical Care and Acute Care Surgery Office: [phone] Pager: [phone] Christian Kelley PA-C - 09/28/2017 1:01 PM [...] he said, who, ariel? And then the ADMINISTRATIVE JUDGE helped him make a call to her. [...] and EOMs intact to exam Neck: in [place] collar Respiratory: CTA bilaterally, lungs symmetrical, equal [...] very agitated today. - EKG today with [place] QTc calculated to be 428 - optimize [...] AMS & delirium - numerous evaluations by DIMENSION QUARRY SUPERVISOR with trials of PO - now s/p [...] . - C-collar at all times, use SHIP LABORER when OOB - Follow-up with Neurosurgery on 10/21 with repeat X-rays #Blunt abdominal trauma #Splenic laceration S/p laparotomies x2. Fascia closed 09/02 Wound vac removed by patient, but wound remains duke n/dry/intact. [place] removed 09/17. #Left hemothorax Chest tube placed [...] more toda y. Chaz Hernandez MD, FACS Real Estate Developer, Trauma, Critical Care and Acute Care Surgery Chaz Hernandez MD - 09/28/2017 10:13 AM PDTTrauma Staff Seen and examined this AM with team. I have concerns abotu behaviour, as he is consistently threatening RN and ancillary staff, even attempting swings. Behavior seems worse at night. I would favor increasing night time Haldol dose, and following EKGs. Chaz Hernandez MD, FACS Real Estate Developer, Trauma, Critical Care and Acute Care [...] Dallin Bourgeois MD Neurosurgery PGY1 | Pager #[phone] Christian Begum PA-C - 09/27/2017 7:31 AM [...] able to have a linear conversation briefly DIMENSION QUARRY SUPERVISOR requesting repeat barium swallow Current meds: I [...] incision healing , suture c/d/I Neck: in SHIP LABORER Respiratory: unlabored on room air, lungs symmetrical, [...] AMS & delirium - numerous evaluations by DIMENSION QUARRY SUPERVISOR with trials of PO - now s/p [...] . - C-collar at all times, use SHIP LABORER when OOB - Follow-up with Neurosurgery on [...] cotinue TPN for now. EM CUNNINGHAM MD [facility] [address] [place] [address] Christian Kelley PA-C - 09/26/2017 6:48 AM [...] posterior scalp crani incision c/d/I Neck: in [place] collar Respiratory: unlabored on room air CV: [...] AMS & delirium - numerous evaluations by DIMENSION QUARRY SUPERVISOR with trials of PO - now s/p [...] . - C-collar at all times, use SHIP LABORER when OOB - Follow-up with Neurosurgery on 10/21 with repeat X-rays #Blunt abdominal trauma #Splenic laceration S/p laparotomies x2. Fascia closed 09/02 Wound vac removed by patient, but wound remains duke n/dry/intact. [place] removed 09/17. #Left hemothorax Chest tube placed [...] Continue NPO and TPN. EM CUNNINGHAM MD [facility] [address] [place] [address] Christian Kelley PA-C - 09/25/2017 7:49 AM [...] HEENT: EOMs intact to exam Neck: in SHIP LABORER brace Respiratory: unlabored on room air CV: [...] AMS & delirium - numerous evaluations by DIMENSION QUARRY SUPERVISOR with trials of PO - now s/p [...] . - C-collar at all times, use SHIP LABORER when OOB - Follow-up with Neurosurgery on 10/21 with repeat X-rays #Blunt abdominal trauma #Splenic laceration S/p laparotomies x2. Fascia closed 09/02 Wound vac removed by patient, but wound remains duke n/dry/intact. [place] removed 09/17. #Left hemothorax Chest tube placed [...] LFTS wnl. Continue TPN. EM CUNNINGHAM MD [facility] [address] [place] [address] Christian Kelley PA-C - 09/24/2017 11:07 AM [...] with agitation Having difficulty swallowing again - DIMENSION QUARRY SUPERVISOR to re-eval and obtain barium swallow Current [...] HEENT: EOMs intact to exam Neck: in SHIP LABORER brace Respiratory: CTA bilaterally, lungs symmetrical, equal chest wall rise, no retractions CV: RRR GI: non distended, last BM 09/23 : good urine output Extremities: SCD's in place, no peripheral edema, wiggles toes and toes pink and well perfu sed Musculoskeletal: 5/5 strength in bilateral manager residential (but with slightly weaker on left) , [...] PRN seroquel dose QHS for insomnia/restlessness at [facility] - Haldol 5mg q12hr prn [...] likely 2/2 AMS & delirium - Failed DIMENSION QUARRY SUPERVISOR eval 09/19 & 09/20, made NPO & dobhoff reinserted 09/21 but pulled overnight - Per DIMENSION QUARRY SUPERVISOR on 09/21, ok for therapeutic pureed with [...] . - C-collar at all times, use SHIP LABORER when OOB - Follow-up with Neurosurgery on [...] Start abx for dehiscence. EM CUNNINGHAM MD [facility] [address] [place] [address] Ginette Campos PA-C - 09/24/2017 9:31 AM [...] 4 extremities Unable to assess drift. Motor: Shell Core And Molding Supervisor Bicep Tricep Delt R 5 5 [...] call for further questions or concerns. Ginette Cmapos PA-C [facility] [address] [place] [phone] cGabriel Atkins stephanie Cleary, AGACNP - 09/23/2017 [...] hiscence, draining minimal serosang fluid Neck: in SHIP LABORER brace Respiratory: unlabored on room air CV: [...] PRN seroquel dose QHS for insomnia/restlessness at [facility] - Repeat ECG 09/22 with [...] likely 2/2 AMS & delirium - Failed DIMENSION QUARRY SUPERVISOR eval 09/19 & 09/20, made NPO & dobhoff reinserted 09/21 but pulled overnight - Per DIMENSION QUARRY SUPERVISOR on 09/21, ok for therapeutic pureed with [...] . - C-collar at all times, use SHIP LABORER when OOB - Follow-up with Neurosurgery on [...] dysphagia & delir ium improves Sherine Sarmiento, [facility] [place]g [phone] Dallin Deshpande MD - 09/22/2017 8:03 AM [...] Dallin Bourgeois MD Neurosurgery PGY1 | Pager #[phone] [facility] est[facility] - 09/22/2017 6:52 AM PDTFormatting [...] 24hr events: - Therapeutic purees initiated by DIMENSION QUARRY SUPERVISOR yesterday - Trickle feeds via Dobbhoff, pt pulled Dobbhoff yesterday evening- not replaced - LOG RAFT WORKER called around 2130 for new left facial droop (see separate notes), CT revealed increa se in SDH from 12 to 17mm with no change in midline shift. [facility]am [facility] - NSG and stroke team [...] sluggish. Slight left facial droop Neck: in [place] collar Respiratory: unlabored on room air CV: [...] PRN seroquel dose QHS for insomnia/restlessness at [facility]- - Repeat ECG 09/22 with Q Tc WNL. - Haldol 5mg q12hr prn for severe agitation #Substance abuse, concern for Alcohol withdrawal - CIWA discontinued 09/08, not scoring. - Thiamine & folate started 09/21 #Dysphagia, risk for aspiration #Protein calorie malnutirtion - likely 2/2 AMS & delirium - Failed DIMENSION QUARRY SUPERVISOR eval 09/19 & 09/20, made NPO & dobhoff reinserted 09/21 but pulled overnight - Per DIMENSION QUARRY SUPERVISOR on 09/21, ok for therapeutic pureed with [...] . - C-collar at all times, use SHIP LABORER when OOB - Follow-up with Neurosurgery on 10/21 with repeat X-rays #Blunt abdominal trauma #Splenic laceration S/p laparotomies x2. Fascia closed 09/02 Wound vac removed by patient, but wound remains duke n/dry/intact. [place] removed 09/17. #Left hemothorax Chest tube placed [...] when dysphagia & delirium improves Sherine Sarmiento, [facility] [place] [phone] Associated attestation - Nubia Nieto MD,MPH - [...] & Acute Care Surgery [facility] [phone] Sami Black Merle - 09/21/2017 10:25 PM [...] in the morning. Plan: -neuro checks; page [phone] for any decline in neurological examination -pain control -Hard C collar at all times and place SHIP LABORER prior to mobilizing OOB. Anticipated duration of Collar/SHIP LABORER is 12 weeks -repeat CT head for any new decline in neurological exam and page [phone] -NPO at midnight tonight -please hold tonight's planned dose of Lovenox -further recommendations in the morning Sami Black MD, PhD PGY-3 Resident Neurosurgery [id number] signed by Sami Black at 09/21/2017 10:50 PM [facility] At[facility] - 09/21/2017 7:10 AM PDTFormatting [...] Provena placem ent 24hr events: - Failed DIMENSION QUARRY SUPERVISOR eval again yest morning, continued NPO - [...] reactive. Dobbhoff tube in place Neck: in [place] collar Respiratory: unlabored on room air CV: [...] likely 2/2 AMS & delirium - Failed DIMENSION QUARRY SUPERVISOR eval 09/19 & 09/20, made NPO & dobhoff reinserted yesterday - Trickle feeds started this am at 20ml/hr, increase very slowly by 10ml every 12 hrs to go al of 75 due to hx of mesenteric hematomas and previous inability to tolerate TF - Per DIMENSION QUARRY SUPERVISOR today, ok for therapeutic pureed with nectar [...] . - C-collar at all times, use SHIP LABORER when OOB - Follow-up with Neurosurgery on [...] & delirium [place] [phone] Associated attestation - Fidelina Shields MD - 09/21/2017 9:36 PM PDTAttending: I saw and examined Diogenes Temple ([id number]) with KESHAWN Alexander on mornin g rounds [...] enough to re-trial PO. Fidelina Shields MD Real Estate Developer Division of Trauma, Critical Care and Acute Care Surgery Office: [phone] Pager: [phone] Sherine Sarmiento AGACNP - 09/20/2017 7:41 AM PDTFormatting of this note might be d ifferent from the original. Trauma Acute Care - Progress Note Name: DIOGENES TEMPLE HPI: Diogenes Tempel is a67 y.o. male with active EtOH [...] haldol given yesterday afternoon for agitation - DIMENSION QUARRY SUPERVISOR paged to re-eval in afternoon after concern for aspiration, made NPO by DIMENSION QUARRY SUPERVISOR - DARNELL SOLANO Current meds: I have [...] right pupil 3 and reactive Neck: in [place] collar Respiratory: unlabored on room air CV: [...] thick/pureed d iet. Made NPO yesterday by DIMENSION QUARRY SUPERVISOR after concern for aspiration. This is likely 2/2 waxing & wan ing delirium & AMS - DIMENSION QUARRY SUPERVISOR re-eval today recommend continue NPO d/t overt clinical signs of aspiration - Place Dobbhoff tube and restart feeds, slowly progress to goal - Stop TPN when tolerating tube feeds - DIMENSION QUARRY SUPERVISOR will follow closely, as his AMS improves [...] . - C-collar at all times, use SHIP LABORER when OOB - Follow-up with Neurosurgery on [...] & [place] [phone] Associated attestation - Fidelina Shields MD - 09/20/2017 9:34 PM PDTAttending: I saw and examined Diogenes Temple ([id number]) with KESHAWN Alexander on mornin g rounds [...] dispo planning when able. Fidelina Shields MD Real Estate Developer Division of Trauma, Critical Care and Acute Care Surgery Office: [phone] Pager: [phone] Mary Medrano MD,MPH - 09/19/2017 6:22 AM [...] downgraded from thin to thick liquids by DIMENSION QUARRY SUPERVISOR Current meds: I have independently reviewed current [...] intact, small Right fluctuant pseudomeningocele Neck: in [place] collar Respiratory: unlabored on room air CV: [...] DHT on09/19. - Cleared for diet by DIMENSION QUARRY SUPERVISOR, tolerating purees, 749 Calories yesterday - Restart Calorie count: if taking >700 again will be OK for full po diet, otherwise replac e DHT and restart TF - Stop TPN tomorrow regardless - Still considering repeat CT abdomen/pelvis #Dysphagia DHTreplaced overnight 09/07. TF held due to emesis and possible ileus, aspiration risk. DH T pulled overnight on 09/18 - DIMENSION QUARRY SUPERVISOR as able Resolved or chronic issues/Plan: #BIG 3 TBI #Right synthetic cranioplasty Neurosurgery consulted. Non-operative management. Last head CT 09/12 stable. Expected pseudo meningocele. Left-sided deficits consistent with baseline. - Stat head CT for any neurologic decline #C7 bilateral lamina fractures #C6-T2 spinous process fractures Neurosurgery consulted. Non-operative management. Upright cervical X-rays completed on 09/14 . - C-collar at all times, use SHIP LABORER when OOB - Follow-up with Neurosurgery on [...] M.D., M.P.H. Neurological Surgery Resident PGY-1 Pager: [phone] Associated attestation - Fidelina Shields MD - 09/19/2017 1:36 PM PDTAttending: I saw and examined Diogenes Temple ([id number]) with the residents on morning rounds 09/19/17 and agree with the assessment and plan as outlined in this note and participated in the plan aashish of care. Improving po intake, will titrate TPN. Plan to DC TPN tomorrow and transition to PO vs PO + TF depending on calorie counts. Once of restraints will begin looking for placement. Fidelina Shields MD Real Estate Developer Division of Trauma, Critical Care and Acute Care Surgery Office: [phone] Pager: [phone] Mary Medrano MD,MPH - 09/18/2017 6:17 AM [...] fascial closure, [place] placem ent 24hr events: [place] removed yesterday Small emesis overnight, nausea resolved [...] fluctuant pseudomeningocele,Dobhoff tubein p lace Neck: in [place] collar Respiratory: unlabored on room air CV: [...] holding TF - Cleared for diet by DIMENSION QUARRY SUPERVISOR, tolerating small quantities of purees - Will need repeat CT A/P within 1-2 days #Hypervolemia I&O approaching even. Appears to have been auto-diuresing. - Continue to monitor urine output - Monitor electrolytes, replete prn #Dysphagia DHTreplaced overnight 09/07. TF held due to emesis and possible ileus, aspiration risk. - DIMENSION QUARRY SUPERVISOR as able #C7 bilateral lamina fractures #C6-T2 spinous process fractures Neurosurgery consulted. Non-operative management. Upright cervical X-rays completed on 09/14 . - C-collar at all times, use SHIP LABORER when OOB - Follow-up with Neurosurgery on [...] M.D., M.P.H. Neurological Surgery Resident PGY-1 Pager: [phone] signed by Fidelina Shields MD at 09/19/2017 3:58 PM PDT Associated attestation - Fidelina Shields MD - 09/19/2017 3:58 PM PDTAttending: I saw and examined Diogenes Temple ([id number]) with the residents on morning rounds 09/18/17 and agree with the assessment and plan as outlined in this note and participated in the plan aashish of care. Fidelina Shields MD Real Estate Developer Division of Trauma, Critical Care and Acute Care Surgery Office: [phone] Pager: [phone] Mary Medrano MD,MPH - 09/17/2017 6:26 AM [...] fluctuant pseudomeningocele,Dobhoff tubein p lace Neck: in [place] collar Respiratory: unlabored on room air CV: [...] holding TF - Cleared for diet by DIMENSION QUARRY SUPERVISOR, tolerating small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 lot number: [id number] with a length of 55 | | [...] + + | [facility] | [address] | [place], [place] | | | [facility] | [address] | [address] | | | TESTS | | | [...] | | Surgical Critical Care, PGY7 Pager: [phone] | | + + + CAPILLARY BLOOD [...] PICKETT | [address] | [place], [place] | | | [facility] | [address] | [address] | | | TESTS | | | [...] MARQUAM | [address] | [place], [place] | | | [facility] | [address] | [address] | | | TESTS | | | [...] | | | LABORATORY | | | ROMANIAN | | | SERVICES, | | | [...] | + + + + + | [facility] | [address] | [place] [address] | | | SERVICES, CORE | VILMA [...] | + + + + + | [facility] | [address] | [place] [address] | | | SERVICES, CORE | VILMA [...] PICKETT | [address] | [place], [place] | | | [facility] | [address] | [address] | | | TESTS | | | [...] | + + + + + | [facility] | [address] | [place] [address] | | | SERVICES, CORE | PARK [...] | | | LABORATORY | | | ROMANIAN | | | SERVICES, | | | [...] | + + + + + | [facility] | [address] | [place] [address] | | | SERVICES, CORE | VILMA [...] | + + + + + | [facility] | [address] | [place], [place] | | | CARDIOLOGY | [address] | [address] | | + + + + + IR GASTROSTOMY TUBE EXCHANGE (10/22/2017 2:42 PM PDT) + + | Specimen | + + | | + + + + + | Narrative | Performed At | + + + | Procedure: Gastrostomy tube exchange Primary attending | SELENA | | collar runner: Shade Nix M.D. Preoperative diagnosis: | RADIOLOGY VOICE | | Malfunctioning Gastrostomy tube Postoperative diagnosis: Same | RECOGNITION | | Operations: Operation 1. Removal of existing Gastrostomy tube | | | over a guide wire Operation 2. Placement of 24 [place] GABRIEL | | | gastrostomy over guide [...] a stiff glide wire the new 24 [place] gastrostomy tube was | | | inserted. [...] Procedure: | | Gastrostomy tube exchangePrimary attending collar runner: Shade Nix, | | BrynPreoperative diagnosis: Malfunctioning Gastrostomy tubePostoperative diagnosis: | | SameOperations:Operation 1. Removal of existing Gastrostomy tube over a guide | | wireOperation 2. Placement of 24 [place] GABRIEL gastrostomy over guide wireNo sedation was [...] glide wire the | | new 24 [place] gastrostomy tube was inserted. The position of [...] stiff g lide wire the new 24 [place] | |gastrostomy tube was inserted. The position [...] Note | + + | Service Account, Radingmoco Res In Interface - 10/22/2017 10:34 AM [...] DEPT OF | [address] | [place] | | | CARDIOLOGY | [address] | [address] | | + + + + + [...] Dr. Talavera on 10/22/2017 4:30 AM by Dea Izaguirre MD. | | | |I have [...] | + + + + + | [facility] | [address] | [place] [address] | | | SERVICES, CORE | VILMA [...] | | | LABORATORY | | | ROMANIAN | | | SERVICES, | | | [...] | + + + + + | [facility] | [address] | [place] [address] | | | SERVICES, CORE | PARK [...] DEPT OF | [address] | [place], [place] | | | CARDIOLOGY | [address] | [address] | | + + + + + [...] | | | LABORATORY | | | ROMANIAN | | | SERVICES, | | | [...] + | [facility] | [address] | [place] [address] | | | SERVICES, CORE | PARK [...] [facility] | [address] | [place] [address] | | | SERVICES, CORE | VILMA [...] DEPT OF | [address] | [place], [place] | | | CARDIOLOGY | [address] | [address] | | + + + + + [...] | + + + + + | [facility] | [address] | [place] [address] | | | SERVICES, CORE | PARK [...] | | | LABORATORY | | | ROMANIAN | | | SERVICES, | | | [...] | + + + + + | [facility] | [address] | [place] [address] | | | SERVICES, CORE | VILMA [...] | [facility] | [address] | [place], [place] | | | CARDIOLOGY | [address] | [address] | | + + + + + [...] | | | LABORATORY | | | ROMANIAN | | | SERVICES, | | | [...] [facility] | [address] | [place] [address] | | | SERVICES, NATALEE | PARK [...] | + + + + + | [facility] | [address] | [place] [address] | | | NATALEE WORTHINGTON | VILMA [...] | [facility] | [address] | [place], [place] | | | CARDIOLOGY | [address] | [address] | | + + + + + [...] | | | LABORATORY | | | ROMANIAN | | | SERVICES, | | | [...] [facility] | [address] | [place] [address] | | | SERVICES, CORE | PARK [...] | + + + + + | [facility] | [address] | [place] [address] | | | SERVICES, CORE | PARK [...] | + + | Service Account, Kostas Polar Rose In Interface - 10/15/2017 3:58 PM PDT [...] DEPT OF | [address] | [place] | | | CARDIOLOGY | [facility] | [address] | | + + + + + CAPILLARY BLOOD GLUCOSE (NO CHG), POC (10/15/2017 6:01 AM PDT) + +---------+ + + + | Component | Value | Ref Range | Performed | Pathologist | | | | | At | Signature | + +---------+ + + + | BLOOD | 134 (H) | 70 - 99 mg/dL | [facility] - | | | GLUCOSE, | | [...] [facility] | [address] | [place] | | | [place] [facility]INT OF CARE | [address] | [address] | | | TESTS | | | [...] | + + + + + | [facility] | [address] | [place] [address] | | | NATALEE WORTHINGTON | VILMA [...] [facility] | [address] | [place], [place] | | | GLORIA GE[facility]O OF [facility] | [address] | [address] | | | TESTS | | | [...] [facility] | [address] | [place], [place] | | | CARDIOLOGY | [address] | [address] | | + + + + + [...] [facility] | [address] | [place] [address] | | | NATALEE WORTHINGTON | VILMA [...] | | | LABORATORY | | | ROMANIAN | | | SERVICES, | | | [...] | + + + + + | [facility] | [address] | [place] [address] | | | SERVICES, CORE | VILMA [...] | + + + + + | [facility] | [address] | [place] [address] | | | SERVICES, CORE | VILMA [...] [facility] | [address] | [place] | | | GL[facility]IA GE[place]O OF CARE | [address] | [address] | | | TESTS | | | [...] [facility] | [address] | [place] | | | [place] [facility] CARE | [address] | [address] | | | TESTS | | | [...] | + + + + + | [facility] | [address] | [place] [address] | | | SERVICES, NATALEE | VILMA [...] | | | LABORATORY | | | ROMANIAN | | | SERVICES, | | | [...] | + + + + + | [facility] | [address] | [place] [address] | | | SERVICES, CORE | [address] | | | + + + + + OPERATION RECORD (10/12/2017 8:50 PM PDT) + + | Procedure Note | + + | Pilar Cotto MD - 10/12/2017 8:50 PM PDT Date of Service: 10/12/2017 | | Attending Surgeon: Chaz Hernandez MD Clinical Education Consultant(s): Randell Dixon M.D., | | fellow. George [...] saline. We then | | placed a 19-Central African drain deep into the abscess cavity, tracking [...] 10/12/2017 19:50:06DT: 10/12/2017 20:50:54Job #: | | [id number] | + + X-RAY PORTABLE CHEST 1 [...] [facility] | [address] | [place] | | | [place] OF [facility] | [address] | [address] | | | TESTS | | | [...] [facility] | [address] | [place] [address] | | | SERVICES, CORE | PARK [...] | | | LABORATORY | | | ROMANIAN | | | SERVICES, | | | [...] the MDRD equation recommended by the | [facility] | | National Kidney Disease [...] [facility] | [address] | [place] [address] | | | SERVICES, CORE | PARK [...] | + + + + + | [facility] | [address] | [place] [address] | | | NATALEE WORTHINGTON | VILMA [...] DEPT OF | [address] | [place], [place] | | | CARDIOLOGY | [address] | [address] | | + + + + + [...] DEPT OF | [address] | [place] | | | CARDIOLOGY | [address] | [address] | | + + + + + [...] + | [facility] | [address] | [place] [address] | | | SERVICES, CORE | PARK [...] [facility] | [address] | [place] [address] | | | SERVICES, CORE | PARK [...] | | | LABORATORY | | | ROMANIAN | | | SERVICES, | | | [...] | + + + + + | [facility] | [address] | [place] [address] | | | ELIN, NATALEE | [address] | | | + + + + + PROCEDURE NOTE (10/10/2017 10:00 PM PDT) + + + | Narrative | Performed At | + + + | Darius Link MD 10/12/2017 11:11 AM OPERATIVE REPORT | | | DATE OF OPERATION: 10/10/2017 ATTENDING SURGEON: 1. Dr. Hernandez | | | STAMP PRESSER: 1. Darius Lnik MD INDICATIONS: Dysphagia | | | and [...] to | | | follow. Arben Jackson, [address] Chief Resident | | | Neurosurgery | [...] | + + + + + | [facility] | [address] | [place] [address] | | | SERVICES, CORE | VILMA [...] | | | LABORATORY | | | ROMANIAN | | | SERVICES, | | | [...] the MDRD equation recommended by the | [facility] | | National Kidney Disease [...] | + + + + + | [facility] | [address] | [place] [address] | | | SERVICES, CORE | PARK [...] [facility] | [address] | [place] [address] | | | NATALEE WORTHINGTON | [address] | | | + + + + + OPERATION RECORD (10/10/2017 12:40 PM PDT) + + | Procedure Note | + + | Magdiel Stock MD - 10/10/2017 12:40 PM PDT Date of Service: 10/10/2017 Attending | | Surgeon: Magdiel Stock MD Clinical Education Consultant(s): Cecilia Jackson, | | . Preoperative Diagnoses: [...] the note for this encounter.Sonal Nunez MDOHSU [id number] | | [place] [id number] Orina, MDFAH/MODLDD: | | 10/10/2017 11:52:15DT: 10/10/2017 12:40:41Job #: [id number] | | | | | |I was present for the critical portions of the procedure as described in the note for this encounter. | | | |Magdiel Stock MD | | | |Magdiel Stock MD | |[address] | |[address] [facility] | |[facility] | |[place] [address] | |[phone] | | | | | |Magdiel Stock MD | |FAH/MODL | | | | | | /[id number] | + + X-RAY ABDOMEN 1 VIEW [...] + | [facility] | [address] | [place] [address] | | | [place] | | | [...] | | [facility] - | | | [facility] | + + + + + + + + | Performing | Address | City/State/Zipcode | Phone Number | | Organization | | | | + + + + + | [facility] | [address] [place] [address] | [place] [address] | | | [place] | | | | + + + [...] 1+ Pseudomonas aeruginosa Refer to culture | [facility] - | | collected 10/10/17 at 0903 for susceptibilities No anaerobic | [facility] - | | organisms isolated Gram Stain: No squamous epithelial cells | [place] | | Many polymorphonuclear cells No organisms seen | | + + + + + + + + | Performing | Address | City/State/Zipcode | Phone Number | | Organization | | | | + + + + + | [facility] - | [address] [place] [address] | [place] [address] | | | [place] | | | | + + + [...] detected | [facility] - | | | [place] | + + + + + + + + | Performing | Address | City/State/Zipcode | Phone Number | | Organization | | | | + + + + + | [facility] | [address] | [place] [address] | | | [place] | | | [...] + | [facility] | [address] [place] [address] | [place] [address] | | | [place] | | | [...] Gram Stain: No squamous epithelial cells | [place] | | Many polymorphonuclear cells No organisms seen | | + + + + + + + + | Performing | Address | City/State/Zipcode | Phone Number | | Organization | | | | + + + + + | [facility] | [address] | [place] [address] | | | [place] | | | [...] + | [facility] | [address] | [place] [address] | | | [place] | | | | + + + [...] Gram Stain: No squamous epithelial cells | [place] | | Few polymorphonuclear cells No organisms seen | | + + + + + + + + | Performing | Address | City/State/Zipcode | Phone Number | | Organization | | | | + + + + + | [facility] | [address] | [place] [address] | | | [place] | | | | + + + + + CULTURE, TISSUE (10/10/2017 8:41 AM PDT) + + | Specimen | + + | Tissue - Head | | structure (body | | structure) | + + + + + | Narrative | Performed At | + + + | Culture Report: No growth No anaerobic organisms isolated | [facility] - | | Gram Stain: No squamous epithelial cells No polymorphonuclear | [facility] - | | cells No organisms seen | [place] | + + + + + + + + | Performing | Address | City/State/Zipcode | Phone Number | | Organization | | | | + + + + + | [facility] | [address] | [place], [place] [address] | | | [place] | | | | + + + [...] + | [facility] | [address] [place] [address] | [place] [address] | | | [place] | | | | + + + [...] Gram Stain: No squamous epithelial cells | [place] | | Moderate polymorphonuclear cells No organisms seen | | + + + + + + + + | Performing | Address | City/State/Zipcode | Phone Number | | Organization | | | | + + + + + | [facility] | [address] | [place] [address] | | | [place] | | | | + + + [...] detected | [facility] - | | | [place] | + + + + + + + + | Performing | Address | City/State/Zipcode | Phone Number | | Organization | | | | + + + + + | [facility] | [address] | [place] [address] | | | [place] | | | | + + + [...] + | [facility] | [address] | [place] [address] | | | [facility] | | | | + + + [...] + | [facility] | [address] | [place] [address] | | | [facility] | | | | + + + [...] + | [facility] | [address] [place] [address] | [place] [address] | | | [facility] [...] + | [facility] | [address] [place] [address] | [place] [address] | | | [place] | | | [...] Gram Stain: No squamous epithelial cells | [place] | | Moderate polymorphonuclear cells No organisms seen | | + + + + + + + + | Performing | Address | City/State/Zipcode | Phone Number | | Organization | | | | + + + + + | [facility] | [address] [place] [address] | [place] [address] | | | [place] | | | [...] + | [facility] | [address] | [place] [address] | | | [place] | | | | + + + [...] [facility] | [address] | [place] [address] | | | SERVICES, NATALEE | VILMA [...] | + + + + + | [facility] | [address] | [place] [address] | | | SERVICES, CORE | PARK [...] [facility] | [address] | [place] [address] | | | NATALEE WORTHINGTON | VILMA [...] | | | LABORATORY | | | ROMANIAN | | | SERVICES, | | | [...] | + + + + + | [facility] | [address] | [place] [address] | | | NATALEE WORTHINGTON | VILMA [...] DEPT OF | [address] | [place], [place] | | | CARDIOLOGY | [address] | [address] | | + + + + + [...] + + + + | PRODUCT | [id number] | | [facility] | | | UNIT [...] + + + + | EXPIRATION | [id number] | | [facility] | | | DATE [...] + + + + | BLOOD | [id number] | | [facility] | | | PRODUCT [...] [facility] | [address] | [place] [address] | | | SERVICES, | [address] [...] + + + + | PRODUCT | [id number] | | [facility] | | | UNIT [...] + + + + | EXPIRATION | [id number] | | [facility] | | | DATE [...] + + + + | BLOOD | [id number] | | [facility] | | | PRODUCT [...] | + + + + + | [facility] | [address] | [place] [address] | | | SERVICES, | [address] [...] [facility] | [address] | [place] [address] | | | SERVICES, | [address] [...] [facility] | [address] | [place] [address] | | | SERVICES, | [address] [...] | + + + + + | [facility] | [address] | [place] [address] | | | SERVICES, | [address] [...] | + + + + + | [facility] | [address] | [place] [address] | | | SERVICES, CORE | PARK [...] DEPT OF | [address] | [place], [place] | | | CARDIOLOGY | [address] | [address] | | + + + + + [...] Note | + + | Service Account, Varioptic In Interface - 10/08/2017 10:47 AM PDT [...] [facility] | [address] | [place], [place] | | | GLORIA GENAO OF CARE | [address] | [address] | | | TESTS | | | [...] [facility] | [address] | [place] [address] | | | SERVICES, CORE | [address] | | | + + + + + MAGNESIUM, PLASMA (10/08/2017 6:00 AM PDT) + +-------+ + + + | Component | Value | Ref Range | Performed | Pathologist | | | | | At | Signature | + +-------+ + + + | MAGNESIUM,P | 2.2 | 1.6 - 2.6 mg/dL | [facility] | | | LASMA | [...] [facility] | [address] | [place] [address] | | | SERVICES, NATALEE | VILMA [...] | | | LABORATORY | | | ROMANIAN | | | SERVICES, | | | [...] | + + + + + | [facility] | [address] | [place] [address] | | | SERVICES, CORE | VILMA [...] [facility] | [address] | [place], [place] | | | [place] [facility]ARE | [address] | [address] | | | TESTS | | | [...] [facility] | [address] | [place], [place] | | | [place] [facility] | [address] | [address] | | | TESTS | | | [...] [facility] | [address] | [place] | | | [facility] GE[facility]O OF CARE | [address] | [address] | | | TESTS | | | [...] [facility] | [address] | [place] | | | [place] [facility]ARE | [address] | [address] | | | TESTS | | | [...] [facility] | [address] | [place] | | | [place] [facility] OF CARE | [address] | [address] | | | TESTS | | | [...] [facility] | [address] | [place] [address] | | | SERVICES, NATALEE | VILMA [...] | + + + + + | [facility] | [address] | [place] [address] | | | SERVICES, CORE | VILMA [...] | | | LABORATORY | | | ROMANIAN | | | SERVICES, | | | [...] | + + + + + | [facility] | [address] | [place] [address] | | | SERVICES, CORE | VILMA [...] 99 | 70 - 99 mg/dL | [facility] - | | | GLUCOSE, [...] [facility] | [address] | [place], [place] | | | [place] [facility] OF CARE | [address] | [address] | | | TESTS | | | [...] [facility] | [address] | [place] | | | [facility] CARE | [address] | [address] | | | TESTS | | | [...] DEPT OF | [address] | [place] | | | CARDIOLOGY | [facility] | [address] | | + + + + + [...] [facility] | [address] | [place] | | | [facility] [facility] OF [facility] | [address] | [address] | | | TESTS | | | [...] | + + + + + | [facility] | [address] | [place] [address] | | | NATALEE WORTHINGTON | VILMA [...] | + + + + + | [facility] | [address] | [place] [address] | | | SERVICES, CORE | VILMA [...] | | | LABORATORY | | | ROMANIAN | | | SERVICES, | | | [...] | + + + + + | [facility] | [address] | [place] [address] | | | SERVICES, NATALEE | VILMA [...] (H) | 70 - 99 mg/dL | [facility] - | | | GLUCOSE, [...] [facility] | [address] | [place] | | | [place] [facility] | [address] | [address] | | | TESTS | | | [...] [facility] | [address] | [place] | | | [place] [facility]ARE | [address] | [address] | | | TESTS | | | [...] [facility] | [address] | [place] | | | [place] [facility] | [address] | [address] | | | TESTS | | | [...] [facility] | [address] | [place] | | | [place] [facility] | [address] | [address] | | | TESTS | | | [...] DEPT OF | [address] | [place] | | | CARDIOLOGY | [address] | [address] | | + + + + + [...] | + + + + + | [facility] | [address] | [place] [address] | | | SERVICES, CORE | VILMA [...] [facility] | [address] | [place] [address] | | | SERVICES, CORE | [address]ARK [...] | | | LABORATORY | | | ROMANIAN | | | SERVICES, | | | [...] the MDRD equation recommended by the | [facility] | | National Kidney Disease Education Program. [...] | + + + + + | [facility] | [address] | [place] [address] | | | NATALEE WORTHINGTON | [address] [...] (H) | 70 - 99 mg/dL | [facility] - | | | GLUCOSE, [...] [facility] | [address] | [place], [place] | | | [place] [facility] CARE | [address] | [address] | | | TESTS | | | [...] [facility] | [address] | [place] | | | [facility] | [facility] | [address] | | | TESTS | | | [...] [facility] | [address] | [place], [place] | | | [facility] CARE | [facility] | [address] | | | TESTS | | | [...] (H) | 70 - 99 mg/dL | [facility] - | | | GLUCOSE, [...] [facility] | [address] | [place] | | | [place] [facility]ARE | [address] | [address] | | | TESTS | | | [...] [facility] | [address] | [place] | | | [facility] | [facility] | [address] | | | TESTS | | | [...] | + + + + + | [facility] | [address] | [place] [address] | | | SERVICES, CORE | [address] | | | + + + + + MAGNESIUM, PLASMA (10/04/2017 5:28 AM PDT) + +-------+ + + + | Component | Value | Ref Range | Performed | Pathologist | | | | | At | Signature | + +-------+ + + + | MAGNESIUM,P | 2.0 | 1.6 - 2.6 mg/dL | [facility] | | | [facility] | | | [...] [facility] | [address] | [place] [address] | | | ELIN, NATALEE | [address] [...] | | | LABORATORY | | | ROMANIAN | | | SERVICES, | | | [...] | + + + + + | [facility] | [address] | [place] [address] | | | SERVICES, CORE | VILMA [...] [facility] | [address] | [place] | | | [facility] CARE | [facility] | [address] | | | TESTS | | | [...] - [facility] | [address] | [place], [place] | | | [place] [facility]ARE | [address] | [address] | | | TESTS | | | [...] | | | LABORATORY | | | CEICLIA | | | SERVICES, | | | [...] | + + + + + | [facility] | [address] | [place] [address] | | | SERVICES, CORE | VILMA [...] by | | | | | | [employer],[address] | | | | | | Rogelio Pickard, [facility] | | | | | | [address] | | | | | | [phone].[employer]. | | | | | | [employer] health[employer] MD, | | | | | | [...] [facility] | [address] | [place], [place] | | | [facility] | | [address] | | + + + + + [...] [facility] | [address] | [place] [address] | | | SERVICES, CORE | [address] [...] [facility] | [address] | [place] [address] | | | SERVICES, CORE | [address]ARK [...] modified from | [facility] | | original speech and drama teacher's approved specifications. The performance | LABORATORY | | of the THIRD SHIFT LIEUTENANT HIV Combo test, with or without confirmation, was not | SERVICES, | | tested in pediatric patients less than 2 years of age. [facility] | SPECIAL IMM + | | [...] | + + + + + | [facility] | [address] | [place] [address] | | | SERVICES, SPECIAL | VILMA [...] (H) | 70 - 99 mg/dL | [facility] - | | | GLUCOSE, [...] [facility] | [address] | [place] | | | [place] [facility] OF CARE | [address] | [address] | | | TESTS | | | [...] [facility] | [address] | [place] | | | [place] [facility] CARE | [address] | [address] | | | TESTS | | | [...] [facility] | [address] | [place] [address] | | | SERVICES, NATALEE | PARK [...] [facility] | [address] | [place] [address] | | | SERVICES, CORE | PARK [...] | | | LABORATORY | | | ROMANIAN | | | SERVICES, | | | [...] the MDRD equation recommended by the | [facility] | | National Kidney Disease [...] | + + + + + | [facility] | [address] | [place] [address] | | | ELIN, NATALEE | VILMA [...] [facility] | [address] | [place] | | | [place] [facility] | [facility] | [address] | | | TESTS | | | [...] [facility] | [address] | [place] | | | [facility] OF CARE | [address] | [address] | | | TESTS | | | [...] DEPT OF | [address] | [place], [place] | | | CARDIOLOGY | [address] | [address] | | + + + + + [...] now presented. | | | |Final signature: Mracelo Morley MD 10/02/2017 2:06 PM | |Preliminary: [...] MARQUAM | [address] | [place], [place] | | | [facility] | [address] | [address] | | | TESTS | | | [...] Note | + + | Service Account, TraceSecurity Res In Interface - 10/02/2017 10:27 AM [...] PIYUSH | [address] | [place], [place] | | | [facility] OF [facility] | [address] | [address] | | | TESTS | | | [...] | + + + + + | [facility] | [address] | [place] [address] | | | NATALEE WORTHINGTON | VILMA [...] | + + + + + | [facility] | [address] | [place] [address] | | | SERVICES, CORE | VILMA [...] | | | LABORATORY | | | ROMANIAN | | | SERVICES, | | | [...] | + + + + + | [facility] | [address] | [place] [address] | | | SERVICES, CORE | VILMA [...] (H) | 70 - 99 mg/dL | [facility] - | | | GLUCOSE, [...] PICKETT | [address] | [place], [place] | | | [facility] | [address] | [address] | | | TESTS | | | [...] MARQUAM | [address] | [place], [place] | | | [place], PO[facility] CARE | [address] | [address] | | | TESTS | | | [...] PICKETT | [address] | [place], [place] | | | [facility] | [facility] | [address] | | | TESTS | | | [...] Note | + + | Service Account, Varioptic In Interface - 10/01/2017 11:34 AM PDT [...] PICKETT | [address] | [place], [place] | | | [facility] | [address] | [address] | | | TESTS | | | [...] [facility] | [address] | [place] [address] | | | NATALEE WORTHINGTON | VILMA [...] | + + + + + | [facility] | [address] | [place] [address] | | | SERVICES, NATALEE | PARK [...] | | | LABORATORY | | | ROMANIAN | | | SERVICES, | | | [...] | + + + + + | [facility] | [address] | [place] [address] | | | SERVICES, CORE | VILMA [...] (H) | 70 - 99 mg/dL | [facility] - | | | GLUCOSE, [...] PIYUSH | [address] | [place], [place] | | | [facility] | [facility] | [address] | | | TESTS | | | [...] - PIYUSH | [address] | [place], [place] | | | [facility]IA [facility] OF [facility] | [facility] | [address] | | | TESTS | | | [...] DEPT OF | [address] | [place], [place] | | | CARDIOLOGY | [address] | [address] | | + + + + + [...] [facility] | [address] | [place], [place] | | | GLORIA GENAO OF [facility] | [address] | [address] | | | TESTS | | | [...] [facility] | [address] | [place], [place] | | | [facility] | [address] | [address] | | | TESTS | | | [...] [facility] | [address] | [place] [address] | | | SERVICES, NATALEE | PARK [...] [facility] | [address] | [place] [address] | | | SERVICES, CORE | PARK [...] | | | LABORATORY | | | ROMANIAN | | | SERVICES, | | | [...] the MDRD equation recommended by the | [facility] | | National Kidney Disease Education Program. [...] | + + + + + | [facility] | [address] | [place] [address] | | | NATALEE WORTHINGTON | VILMA [...] [facility] | [address] | [place], [place] | | | GLORIA GENAO OF [facility] | [address] | [address] | | | TESTS | | | [...] [facility] | [address] | [place], [place] | | | [facility] GENAO [facility] CARE | [address] | [address] | | | TESTS | | | [...] [facility] | [address] | [place], [place] | | | [facility] | [address] | [address] | | | TESTS | | | [...] DEPT OF | [address] | [place], [place] | | | CARDIOLOGY | [address] | [address] | | + + + + + [...] [facility] | [address] | [place], [place] | | | [facility] GE[facility]O [facility] CARE | [address] | [address] | | | TESTS | | | [...] | + + + + + | [facility] | [address] | [place] [address] | | | SERVICES, CORE | VILMA [...] | | | LABORATORY | | | ROMANIAN | | | SERVICES, | | | [...] [facility] | [address] | [place] [address] | | | SERVICES, CORE | PARK [...] | + + + + + | [facility] | [address] | [place] [address] | | | SERVICES, NATALEE | VILMA [...] [facility] | [address] | [place], [place] | | | [facility] | [address] | [address] | | | TESTS | | | [...] [facility] | [address] | [place], [place] | | | [facility] | [address] | [address] | | | TESTS | | | [...] + + + | [facility] | [address] | [place], [place] | | | [facility] | [address] | [address] | | | TESTS | | | [...] | + + + + + | [facility] | [address] | [place], [place] | | | CARDIOLOGY | [address] | [address] | | + + + + + CAPILLARY BLOOD GLUCOSE (NO CHG), POC (09/28/2017 6:47 AM PDT) + +---------+ + + + | Component | Value | Ref Range | Performed | Pathologist | | | | | At | Signature | + +---------+ + + + | BLOOD | 147 (H) | 70 - 99 mg/dL | [facility] - | | | GLUCOSE, [...] [facility] | [address] | [place], [place] | | | [facility] | [address] | [address] | | | TESTS | | | [...] | + + + + + | [facility] | [address] | [place] [address] | | | NATALEE WORTHINGTON | VILMA [...] | + + + + + | [facility] | [address] | [place] [address] | | | NATALEE WORTHINGTON | PARK [...] | | | LABORATORY | | | ROMANIAN | | | SERVICES, | | | [...] | + + + + + | [facility] | [address] | [place] [address] | | | SERVICES, CORE | PARK [...] (H) | 70 - 99 mg/dL | [facility] - | | | GLUCOSE, [...] [facility] | [address] | [place], [place] | | | GLORIA GENAO OF [facility] | [facility] | [address] | | | TESTS | | | [...] + | [facility] | [address] [facility] [address] | [place], [place] | | | [place] [facility] | [address] | [address] | | | TESTS | | | [...] [facility] | [address] | [place], [place] | | | GL[facility] GENA[facility] CARE | [address] | [address] | | | TESTS | | | [...] RAP[facility]EL[facility] | [address] | [place], [place] | | | [facility] | [facility] | [address] | | | TESTS | | | [...] | + + + + + | [facility] | [address] | [place] [address] | | | SERVICES, CORE | PARK [...] [facility] | [address] | [place] [address] | | | SERVICES, CORE | PARK [...] | | | LABORATORY | | | ROMANIAN | | | SERVICES, | | | [...] the MDRD equation recommended by the | [facility] | | National Kidney Disease [...] | + + + + + | [facility] | [address] | [place] [address] | | | SERVICES, CORE | VILMA [...] (H) | 70 - 99 mg/dL | [facility] - | | | GLUCOSE, [...] [facility] | [address] | [place], [place] | | | [facility] | [facility] | [address] | | | TESTS | | | [...] [facility] | [address] | [place] | | | [facility] GE[facility] CARE | [address] | [address] | | | TESTS | | | [...] DEPT OF | [address] | [place], [place] | | | CARDIOLOGY | [address] | [address] | | + + + + + [...] + + + | [facility] | [address] | [place], [place] | | | GLORIA GENAO [facility] | [address] | [address] | | | TESTS | | | [...] [facility] | [address] | [place], [place] | | | [facility] | [address] [facility] [address] [facility] [address] | [address] | | | TESTS | | | [...] - [facility] | [address] | [place], [place] | | | [place] [facility] | [address] | [address] | | | TESTS | | | [...] [facility] | [address] | [place] [address] | | | ELIN, NATALEE | VILMA [...] | + + + + + | [facility] | [address] | [place] [address] | | | SERVICES, CORE | VILMA [...] | | | LABORATORY | | | ROMANIAN | | | SERVICES, | | | [...] | + + + + + | [facility] | [address] | [place] [address] | | | SERVICES, CORE | VILMA [...] (H) | 70 - 99 mg/dL | [facility] - | | | GLUCOSE, | | [...] [facility] | [address] | [place], [place] | | | [facility] | [address] | [address] | | | TESTS | | | [...] | + + + + + | [facility] | [address] | [place] [address] | | | SERVICES, CORE | VILMA [...] | + + + + + | [facility] | [address] | [place] [address] | | | SERVICES, [facility] | [address] | | | + [...] | | | LABORATORY | | | ROMANIAN | | | SERVICES, | | | [...] the MDRD equation recommended by the | [facility] | | National Kidney Disease [...] [facility] | [address] | [place] [address] | | | SERVICES, CORE | VILMA [...] + + | [facility] DEPT OF | [address] | [place], [place] | | | CARDIOLOGY | [address] | [address] | | + + + + + [...] Note | + + | Service Account, TraceSecurity Res In Interface - 09/24/2017 4:09 PM [...] | + + + + + | [facility] | [address] | [place] [address] | | | SERVICES, CORE | VILMA [...] | | | LABORATORY | | | ROMANIAN | | | SERVICES, | | | [...] [facility] | [address] | [place] [address] | | | SERVICES, CORE | PARK [...] | + + + + + | [facility] | [address] | [place] [address] | | | NATALEE WORTHINGTON | PARK [...] | + + + + + | [facility] | [address] | [place] [address] | | | ELIN, NATALEE | [address] | | | + + + + + MAGNESIUM, PLASMA (09/23/2017 4:04 AM PDT) + +-------+ + + + | Component | Value | Ref Range | Performed | Pathologist | | | | | At | Signature | + +-------+ + + + | MAGNESIUM,P | 2.1 | 1.6 - 2.6 mg/dL | [facility] | | | [facility] | | | [...] [facility] | [address] | [place] [address] | | | SERVICES, NATALEE | VILMA [...] | | | LABORATORY | | | ROMANIAN | | | SERVICES, | | | [...] | + + + + + | [facility] | [address] | [place] [address] | | | SERVICES, NATALEE | VILMA [...] [facility] | [address] | [place], [place] | | | [facility] GE[facility]O [facility] CARE | [facility] | [address] | | | TESTS | | | [...] [facility] | [address] | [place], [place] | | | GL[facility]IA GENAO [facility] | [address] | [address] | | | TESTS | | | [...] | + + + + + | [facility] | [address] | [place] [address] | | | SERVICES, NATALEE | PARK [...] DEPT OF | [address] | [place], [place] | | | CARDIOLOGY | [address] | [address] | | + + + + + [...] [facility] | [address] | [place] [address] | | | SERVICES, NATALEE | PARK [...] [facility] | [address] | [place] [address] | | | SERVICES, CORE | VILMA [...] | | | LABORATORY | | | ROMANIAN | | | SERVICES, | | | [...] | + + + + + | [facility] | [address] | [place] [address] | | | NATALEE WORTHINGTON | VILMA [...] + + | [facility] | [address] [facility] [address] | [place] | | | [place] [facility] | [facility] | [address] | | | TESTS | | | [...] as now presented. Final | | signature: Navojt Orta MD 09/22/2017 8:40 AM Preliminary: Gurpreet [...] [facility] | [address] | [place] [address] | | | NATALEE WORTHINGTON | PARK [...] | + + + + + | [facility] | [address] | [place] [address] | | | SERVICES, NATALEE | VILMA [...] | | | LABORATORY | | | ROMANIAN | | | SERVICES, | | | [...] | + + + + + | [facility] | [address] | [place] [address] | | | SERVICES, CORE | PARK [...] Note | + + | Service Account, Varioptic In Interface - 09/20/2017 7:50 PM PDT [...] | Prabhakar CABRERA 09/20/2017 6:24 PM Preliminary: Mega Yeager MD [...] Note | + + | Service Account, TraceSecurity Res In Interface - 09/20/2017 6:26 PM [...] Note | + + | Service Account, Varioptic In Interface - 09/20/2017 5:17 PM PDT [...] OF | [address] | [place], [place] | | | CARDIOLOGY | [facility] | [address] | | + + + + + [...] | + + + + + | [facility] | [address] | [place] [address] | | | SERVICES, CORE | VILMA [...] [facility] | [address] | [place] [address] | | | SERVICES, CORE | PARK [...] | | | LABORATORY | | | ROMANIAN | | | SERVICES, | | | [...] the MDRD equation recommended by the | [facility] | | National Kidney Disease [...] | + + + + + | [facility] | [address] | [place] [address] | | | SERVICES, CORE | PARK [...] + | [facility] | [address] | [place] [address] | | | SERVICES, CORE | PARK [...] [facility] | [address] | [place] [address] | | | SERVICES, CORE | PARK [...] | | | LABORATORY | | | ROMANIAN | | | SERVICES, | | | [...] the MDRD equation recommended by the | [facility] | | National Kidney Disease [...] | + + + + + | [facility] | [address] | [place] [address] | | | SERVICES, CORE | PARK [...] | + + + + + | [facility] | [address] | [place] [address] | | | SERVICES, CORE | PARK [...] [facility] | [address] | [place] [address] | | | SERVICES, CORE | PARK [...] | | | LABORATORY | | | ROMANIAN | | | SERVICES, | | | [...] the MDRD equation recommended by the | [facility] | | National Kidney Disease [...] | + + + + + | [facility] | [address] | [place] [address] | | | SERVICES, CORE | PARK [...] Note | + + | Service Account, TraceSecurity Res In Interface - 09/17/2017 11:53 AM [...] | + + + + + | [facility] | [address] | [place] [address] | | | NATALEE WORTHINGTON | PARK [...] | + + + + + | [facility] | [address] | [place] [address] | | | SERVICES, CORE | VILMA [...] | | | LABORATORY | | | ROMANIAN | | | SERVICES, | | | [...] | + + + + + | [facility] | [address] | [place] [address] | | | SERVICES, CORE | VILMA [...] Note | + + | Service Account, Heribertongmoco Res In Interface - 09/16/2017 1:34 PM [...] | + + + + + | [facility] | [address] | [place] [address] | | | NATALEE WORTHINGTON | VILMA [...] | + + + + + | [facility] | [address] | [place] [address] | | | SERVICES, CORE | PARK [...] | | | LABORATORY | | | ROMANIAN | | | SERVICES, | | | [...] [facility] | [address] | [place] [address] | | | SERVICES, CORE | VILMA [...] Note Indications:TPN Procedure | | | location: Unit:[facility] Room: #12 Providers: Attending name: | | [...] | pause verifies correct patient, procedure, equipment, customer support representative | | | and site/side [...] | area Basilic vein. Catheter lot number: [id number] with a length of 55 | | [...] | + + + + + | [facility] | [address] | [place] [address] | | | SERVICES, CORE | VILMA [...] | + + + + + | [facility] | [address] | [place] [address] | | | SERVICES, CORE | PARK [...] | | | LABORATORY | | | ROMANIAN | | | SERVICES, | | | [...] | + + + + + | [facility] | [address] | [place] [address] | | | SERVICES, [facility] | [address] | | | + [...] [facility] | [address] | [place] [address] | | | NATALEE WORTHINGTON | VILMA [...] | + + + + + | [facility] | [address] | [place] [address] | | | NATALEE WORTHINGTON | VILMA [...] | | | LABORATORY | | | ROMANIAN | | | SERVICES, | | | [...] | + + + + + | [facility] | [address] | [place] [address] | | | SERVICES, CORE | PARK [...] [facility] | [address] | [place] [address] | | | NATALEE WORTHINGTON | VILMA [...] | + + + + + | [facility] | [address] | [place] [address] | | | SERVICES, NATALEE | VILMA [...] | | | LABORATORY | | | ROMANIAN | | | SERVICES, | | | [...] | + + + + + | [facility] | [address] | [place] [address] | | | SERVICES, CORE | VILMA [...] | + + + + + | [facility] | [address] | [place] [address] | | | SERVICES, CORE | PARK [...] [facility] | [address] | [place] [address] | | | SERVICES, CORE | PARK [...] | | | LABORATORY | | | ROMANIAN | | | SERVICES, | | | [...] the MDRD equation recommended by the | [facility] | | National Kidney Disease Education Program. [...] | + + + + + | [facility] | [address] | [place] [address] | | | NATALEE WORTHINGTON | VILMA [...] [facility] | [address] | [place] [address] | | | NATALEE WORTHINGTON | VILMA [...] | + + + + + | [facility] | [address] | [place] [address] | | | NATALEE WORTHINGTON | VILMA [...] | | | LABORATORY | | | ROMANIAN | | | SERVICES, | | | [...] | + + + + + | [facility] | [address] | [place] [address] | | | SERVICES, CORE | VILMA [...] + + + + + | [facility] | [address] | [place] [address] | | | SERVICES, CORE | VILMA [...] Note | + + | Service Account, TraceSecurity Res In Interface - 09/10/2017 2:08 PM [...] Note | + + | Service Account, Varioptic In Interface - 09/10/2017 2:31 PM PDT [...] Note | + + | Service Account, TraceSecurity Res In Interface - 09/10/2017 9:25 AM [...] | + + + + + | [facility] | [address] | [place] [address] | | | SERVICES, CORE | VILMA [...] [facility] | [address] | [place] [address] | | | SERVICES, CORE | PARK [...] | + + + + + | [facility] | [address] | [place] [address] | | | SERVICES, CORE | VILMA [...] [facility] | [address] | [place] [address] | | | SERVICES, CORE | PARK [...] | | | LABORATORY | | | ROMANIAN | | | SERVICES, | | | [...] the MDRD equation recommended by the | [facility] | | National Kidney Disease Education Program. [...] | + + + + + | [facility] | [address] | [place] [address] | | | NATALEE WORTHINGTON | VILMA [...] DEPT OF | [address] | [place], [place] | | | CARDIOLOGY | [address] | [address] | | + + + + + [...] Note | + + | Service Account, TraceSecurity Res In Interface - 09/10/2017 11:11 AM [...] [facility] | [address] | [place], [place] | | | [facility] | [facility] | [address] | | | TESTS | | | [...] + | [facility] | [address] | [place] [address] | | | NATALEE WORTHINGTON | VILMA [...] [facility] | [address] | [place] [address] | | | SERVICES, CORE | PARK [...] | | | LABORATORY | | | ROMANIAN | | | SERVICES, | | | [...] the MDRD equation recommended by the | [facility] | | National Kidney Disease Education Program. [...] | + + + + + | [facility] | [address] | [place] [address] | | | NATALEE WORTHINGTON | VILMA [...] + | [facility] | [address] | [place] [address] | | | SERVICES, CORE | PARK [...] | | | LABORATORY | | | ROMANIAN | | | SERVICES, | | | [...] the MDRD equation recommended by the | [facility] | | National Kidney Disease Education Program. [...] [facility] | [address] | [place] [address] | | | SERVICES, CORE | PARK [...] | + + + + + | [facility] | [address] | [place] [address] | | | SERVICES, CORE | PARK [...] [facility] | [address] | [place] [address] | | | ELIN, NATALEE | VILMA [...] [facility] | [address] | [place], [place] | | | CARDIOLOGY | [address] | [address] | | + + + + + [...] | + + + + + | [facility] | [address] | [place] [address] | | | NATALEE WORTHINGTON | VILMA [...] | | | LABORATORY | | | ROMANIAN | | | SERVICES, | | | [...] | + + + + + | [facility] | [address] | [place] [address] | | | SERVICES, CORE | VILMA [...] | + + + + + | [facility] | [address] | [place] [address] | | | SERVICES, CORE | VILMA [...] [facility] | [address] | [place], [place] | | | CARDIOLOGY | [address] | [address] | | + + + + + [...] | | | attempt. Midline lot number [id number]; there was positive blood | | | [...] | | | LABORATORY | | | ROMANIAN | | | SERVICES, | | | [...] [facility] | [address] | [place] [address] | | | SERVICES, CORE | PARK [...] | + + + + + | [facility] | [address] | [place] [address] | | | SERVICES, [facility] | [address] | | | + + + + + X-RAY PORTABLE CHEST 1 VIEW (09/05/2017 5:33 AM PDT) + + | Specimen | + + | | + + + + + | Narrative | Performed At | + + + | EXAM: [place] CHEST 1 VIEW HISTORY: Evaluation after chest tube | [facility] | | removal. COMPARISON: Yesterday FINDINGS: Endotracheal [...] Note | + + | Service Account, TraceSecurity Res In Interface - 09/05/2017 10:16 AM [...] | | + +---------+ + + | [facility] | | | | [...] | + + + + + | [facility] | [address] | [place] [address] | | | SERVICES, CORE | VILMA [...] | + + + + + | [facility] | [address] | [place] [address] | | | SERVICES, CORE | VILMA [...] | | | LABORATORY | | | ROMANIAN | | | SERVICES, | | | [...] [facility] | [address] | [place] [address] | | | SERVICES, CORE | PARK [...] | | | LABORATORY | | | ROMANIAN | | | SERVICES, | | | [...] | + + + + + | [facility] | [address] | [place] [address] | | | [facility], [facility] | [address] | | | + [...] tomorrow morning. CB Henson Pager / ID: [phone] | | + + + CULTURE, SPUTUM [...] | + + + + + | [facility] | [address] | [place] [address] | | | [place] | | | [...] | + + + + + | [facility] | [address] | [place] [address] | | | SERVICES, NATALEE | VILMA [...] | [facility] | | | GRAVITY | Keene performed by | | LABORATORY | | [...] [facility] | [address] | [place] [address] | | | SERVICES, CORE | VILMA [...] | + + + + + | [facility] | [address] | [place] [address] | | | SERVICES, CORE | PARK [...] [facility] | [address] | [place] [address] | | | SERVICES, CORE | PARK [...] | [facility] | [address] | [place], [place] | | | CARDIOLOGY | [address] | [address] | | + + + + + [...] | + + + + + | [facility] | [address] | [place] [address] | | | SERVICES, CORE | VILMA [...] + | [facility] | [address] | [place] [address] | | | SERVICES, CORE | PARK [...] | | | LABORATORY | | | ROMANIAN | | | SERVICES, | | | [...] the MDRD equation recommended by the | [facility] | | National Kidney Disease [...] | + + + + + | [facility] | [address] | [place] [address] | | | SERVICES, CORE | [address] | | | + + + + + MAGNESIUM, PLASMA (09/04/2017 12:29 AM PDT) + +-------+ + + + | Component | Value | Ref Range | Performed | Pathologist | | | | | At | Signature | + +-------+ + + + | MAGNESIUM,P | 1.9 | 1.6 - 2.6 mg/dL | [facility] | | | LASMA | [...] [facility] | [address] | [place] [address] | | | SERVICES, NATALEE | VILMA [...] - [facility] | [address] | [place], [place] | | | [facility] | [address] | [address] | | | TESTS | | | [...] [facility] | [address] | [place], [place] | | | [facility] GE[facility] CARE | [address] | [address] | | | TESTS | | | [...] [facility] | [address] | [place], [place] | | | GLORIA GENAO OF CARE | [address] | [address] | | | TESTS | | | [...] + | [facility] | [address] [facility] [address] | [place], [place] | | | [facility] [place] [facility] | [address] | [address] | | | TESTS | | | [...] | | + +---------+ + + | [facility] | | | | | [facility] | | | | + +---------+ [...] detected | AIRPORT - | | | [facility] | + + + + + + + + | Performing | Address | City/State/Zipcode | Phone Number | | Organization | | | | + + + + + | [facility] | [address] | [place] [address] | | | [place] | | | | + + + [...] | + + + + + | [facility] | [address] | [place] [address] | | | SERVICES, CORE | VILMA [...] Note | + + | Service Account, Varioptic In Interface - 09/03/2017 9:54 AM PDT [...] | + + + + + | [facility] - | [address] [place] [address] | [place] [address] | | | [place] | | | | + + + [...] [facility] | [address] | [place] [address] | | | SERVICES, CORE | VILMA [...] | + + + + + | [facility] | [address] | [place] [address] | | | SERVICES, NATALEE | VILMA [...] | | | LABORATORY | | | ROMAN[facility] | | | SERVICES, | | | [...] | + + + + + | [facility] | [address] | [place] [address] | | | SERVICES, CORE | VILMA [...] | + + + + + | [facility] | [address] [address] [address] | [place] [address] | | | SERVICES, NATALEE | [address] | | | + + + + + OPERATION RECORD (09/02/2017 6:53 PM PDT) + + | Procedure Note | + + | Fidelina Shields MD - 09/02/2017 6:53 PM PDT Date of Service: 09/02/2017 | | Attending Surgeon: Fidelina Shields MD Clinical Education Consultant(s): | | Ajay Butts MD, resident. Preoperative [...] 09/02/2017 18:15:29DT: 09/02/2017 18:53:52Job #: | | [id number] to federal Medicare and Medicaid regulations I was present for | | the entire procedure.Fidelina Shields MDAssistanbrice ProfessorDepartment of SurgeryOffice: | | [phone]: [id number] has been electronically signed by Fidelina Shields MD, | | 09/03/2017 at 9:11 AM. | | | | | |Fidelina Shields MD | |Real Estate Developer | |Department of Surgery | |Office: [phone] | |Pager: [phone] | | | |This has been electronically [...] | + + + + + | [facility] | [address] | [place] [address] | | | SERVICES, CORE | PARK [...] | + + + + + | [facility] LABORATORY | [address] | [place] [address] | | | SERVICES, NATALEE | VILMA [...] | + + + + + | [facility] - | [address] | [place] [address] | | | [place] | | | [...] [facility] | [address] | [place] [address] | | | NATALEE WORTHINGTON | VILMA [...] | | | LABORATORY | | | ROMANIAN | | | SERVICES, | | | [...] | + + + + + | [facility] | [address] | [place] [address] | | | SERVICES, NATALEE | VILMA [...] Note | + + | Service Account, Varioptic In Interface - 09/02/2017 4:25 PM PDT [...] Bedrest Initial surgical | | | [facility] Butts, R4 Surgery [phone] Pursuant | | | to federal Medicare and Medicaid regulations I was present for the | | | entire procedure. Fidelina Shields MD Real Estate Developer | | | Department of Surgery Office: [phone] Pager: [phone] This has | | | been electronically [...] [facility] | [address] | [place] [address] | | | SERVICES, CORE | PARK [...] | + + + + + | [facility] | [address] | [place] [address] | | | SERVICES, [facility] | [address] | | | + + + + + OPERATION RECORD (09/02/2017 6:51 AM PDT) + ---+ | Procedure Note | + ---+ | Fidelina Shields MD - 09/02/2017 6:51 AM PDT Date of Service: 09/01/2017 | | Attending Surgeon: Fidelina Shields MD Clinical Education Consultant(s): Haim Peralta MD. | | Ajay Butts [...] 09/02/2017 06:17:53DT: 09/02/2017 | | 06:51:37Job #: [id number] to federal Medicare and Medicaid regulations I | | was present for the entire procedure.Fidelina Shields MDAssdioni ProfessorDepartment of | | SurgeryOffice: [phone]: [id number] has been electronically signed by Fidelina Whitman | | MD Cornelius, 09/02/2017 at 10:40 AM. | | | | | |Pursuant to federal Medicare and Medicaid regulations I was present for the entire procedur e. | | | | | | | |Fidelina Shields MD | |Real Estate Developer | |Department of Surgery | |Office: [phone] | |Pager: [phone] | | | |This has been electronically [...] | + + + + + | [facility] | [address] | [place] [address] | | | SERVICES, CORE | VILMA [...] | + + + + + | [facility] | [address] | [place] [address] | | | SERVICES, CORE | PARK [...] + + + + | PRODUCT | [id number] | | [facility] | | | UNIT [...] + + + + | EXPIRATION | [id number] | | [facility] | | | DATE [...] + + + + | BLOOD | [id number] | | [facility] | | | PRODUCT [...] [facility] | [address] | [place] [address] | | | SERVICES, | [address] [...] | + + + + + | [facility] | [address] | [place] [address] | | | SERVICES, CORE | VILMA [...] | | | LABORATORY | | | ROMANIAN | | | SERVICES, | | | [...] | + + + + + | [facility] | [address] | [place] [address] | | | SERVICES, CORE | VILMA [...] | + + + + + | [facility] | [address] | [place] [address] | | | SERVICES, NATALEE | VILMA [...] | | | | INFORMATION: | | [place] | | | | [employer] | [...] (http://www.cdc.gov/mmwr | | | | | | [email or web address] | | | | | | [email or web address]), [...] [facility] - | | | | by [employer], | | AIRPORT - | | | | | | [place] | | | | [address] | | | | | | Rogelio Pickard [facility] | | | | | | [address] | | | | | | | | | | | | [email or web address], [email or web address] | | | | | | [...] + | [facility] - | [address] | [place] [address] | | | [place] | | | [...] | + + + + + | [facility] | [address] | [place] [address] | | | SERVICES, CORE | PARK [...] | + + + + + | [facility] | [address] | [place] [address] | | | SERVICES, CORE | VILMA [...] | | + +---------+ + + | [facility] | | | | | VOICE RECOGNITION | | | | + +---------+ + + X-RAY PORTABLE CHEST 1 VIEW (09/01/2017 6:14 PM PDT) + + | Specimen | + + | | + + + + + | Narrative | Performed At | + + + | EXAM: WA CHEST 1 VIEW HISTORY: Hypoxemia COMPARISON: 09/01/17 | [facility] | | FINDINGS: The endotracheal tube, gastric [...] | + + + + + | [facility] | [address] | [place] [address] | | | SERVICES, CORE | PARK [...] (L) | 41.0 - 53.0 % | [facility] | | | | | [...] | + + + + + | [facility] | [address] | [place] [address] | | | SERVICES, CORE | VILMA [...] + + + + | PRODUCT | [id number] | | [facility] | | | UNIT [...] + + + + | EXPIRATION | [id number] | | [facility] | | | DATE [...] + + + + | BLOOD | [id number] | | [facility] | | | PRODUCT [...] | + + + + + | [facility] | [address] | [place] [address] | | | SERVICES, | [address] [...] [facility] | [address] | [place] [address] | | | SERVICES, CORE | [address] | | | + + + + + LACTATE (09/01/2017 4:19 PM PDT) + +-------+ + + + | Component | Value | Ref Range | Performed | Pathologist | | | | | At | Signature | + +-------+ + + + | LACTATE | 1.6 | mmol/L | [facility] | | | | | | LABORATORY [...] [facility] | [address] | [place] [address] | | | NATALEE WORTHINGTON | VILMA [...] | + + + + + | [facility] | [address] | [place] [address] | | | SERVICES, CORE | VILMA [...] | | | LABORATORY | | | ROMANIAN | | | SERVICES, | | | [...] | + + + + + | [facility] | [address] | [place] [address] | | | ELIN, CORE | VILMA [...] [facility] | [address] | [place] [address] | | | NATALEE WORTHINGTON | VILMA [...] | Previous result was 1.19 | | [facility], | | | | mmol/L on [...] received. Sample rejected due to air | W[facility]ANIELLE | | contamination. Crediting patient. | LABORATORY | | | NATALEE WORTHINGTON | + + + + + + + + | Performing | Address | City/State/Zipcode | Phone Number | | Organization | | | | + + + + + | [facility] | [address] | [place] [address] | | | NATALEE WORTHINGTON | VILMA [...] micropuncture access set was exchanged for a Guavas wire. Under | | | fluoroscopic guidance, a 5 Fr flush catheter was used to evaluate the | | | distal abdominal aorta and pelvic vasculature. A wire and catheter | | | were then used to select the left common and internal iliac arteries | | | from the right DIRECTOR ASSET approach. DSA was performed from the left [...] | | iliac arteries from the right DIRECTOR ASSET approach. DSA was performed from the left [...] and internal iliac arteries from the right DIRECTOR ASSET approach. DSA was performed from the left [...] [facility] | [address] | [place], [place] | | | [facility] | [address] | [address] | | | TESTS | | | | + + + + + EXPLORATORY LAPAROTOMY (09/01/2017 12:31 PM PDT) + + + | Narrative | Performed At | + + + | Fidelina Shields MD 09/01/2017 12:42 PM BRIEF OPERATIVE NOTE: | | | Date: 09/01/2017 Author: Fidelina Shields MD | | | Attending Physician: Fidelina Shields MD Clinical Education Consultant(s): Haim Peralta | | | , Vicente Butts MD, [facility] MS3 Prior to the | | | [...] case. | | | Fidelina Shields MD Real Estate Developer Division of Trauma, | | | Critical Care and Acute Care Surgery Office: [phone] Pager: | | | [phone] | | + + + ABG-FULL ABL, [...] [facility] | [address] | [place], [place] | | | [facility] | [address] | [address] | | | TESTS | | | [...] [facility] | [address] | [place] [address] | | | NATALEE WORTHINGTON | VILMA [...] [facility] | [address] | [place], [place] | | | [place] [facility] | [address] | [address] | | | TESTS | | | [...] + + + + | PRODUCT | [id number] | | [facility] | | | UNIT [...] + + + + | EXPIRATION | [id number] | | [facility] | | | DATE [...] + + + + | BLOOD | [id number] | | [facility] | | | PRODUCT [...] [facility] | [address] | [place] [address] | | | SERVICES, | [address] [...] + + + + | PRODUCT | [id number] | | [facility] | | | UNIT [...] + + + + | EXPIRATION | [id number] | | [facility] | | | DATE [...] + + + + | BLOOD | [id number] | | [facility] | | | PRODUCT [...] [facility] | [address] | [place] [address] | | | SERVICES, | [address] [...] + + + + | PRODUCT | [id number] | | [facility] | | | UNIT [...] + + + + | EXPIRATION | [id number] | | [facility] | | | DATE [...] + + + + | BLOOD | [id number] | | [facility] | | | PRODUCT [...] | + + + + + | [facility] | [address] | [place] [address] | | | SERVICES, | [address] [...] + + + + | PRODUCT | [id number] | | [facility] | | | UNIT [...] + + + + | EXPIRATION | [id number] | | [facility] | | | DATE [...] + + + + | BLOOD | [id number] | | [facility] | | | PRODUCT [...] | + + + + + | [facility] | [address] | [place] [address] | | | SERVICES, | [address] [...] + + + + | PRODUCT | [id number] | | [facility] | | | UNIT [...] + + + + | EXPIRATION | [id number] | | [facility] | | | DATE [...] + + + + | BLOOD | [id number] | | [facility] | | | PRODUCT [...] | + + + + + | [facility] | [address] | [place] [address] | | | SERVICES, | [address] [...] + + + + | PRODUCT | [id number] | | [facility] | | | UNIT [...] + + + + | EXPIRATION | [id number] | | [facility] | | | DATE [...] + + + + | BLOOD | [id number] | | [facility] | | | PRODUCT [...] [facility] | [address] | [place] [address] | | | SERVICES, | [address] [...] + + + + | PRODUCT | [id number] | | [facility] | | | UNIT [...] + + + + | EXPIRATION | [id number] | | [facility] | | | DATE [...] + + + + | BLOOD | [id number] | | [facility] | | | PRODUCT [...] [facility] | [address] | [place] [address] | | | SERVICES, | [address] [...] + + + + | PRODUCT | [id number] | | [facility] | | | UNIT [...] + + + + | EXPIRATION | [id number] | | [facility] | | | DATE [...] + + + + | BLOOD | [id number] | | [facility] | | | PRODUCT [...] [facility] | [address] | [place] [address] | | | SERVICES, | [address] [...] + + + + | PRODUCT | [id number] | | [facility] | | | UNIT [...] + + + + | EXPIRATION | [id number] | | [facility] | | | DATE [...] + + + + | BLOOD | [id number] | | [facility] | | | PRODUCT [...] LABORATORY | [address] | [place] [address] | | | SERVICES, | [address] [...] + + + + | PRODUCT | [id number] | | [facility] | | | UNIT [...] + + + + | EXPIRATION | [id number] | | [facility] | | | DATE [...] + + + + | BLOOD | [id number] | | [facility] | | | PRODUCT [...] + | [facility] | [address] | [place] [address] | | | SERVICES, | [address] [...] + + + + | PRODUCT | [id number] | | [facility] | | | UNIT [...] + + + + | EXPIRATION | [id number] | | [facility] | | | DATE [...] + + + + | BLOOD | [id number] | | [facility] | | | PRODUCT [...] | + + + + + | [facility] | [address] | [place] [address] | | | SERVICES, | [address] [...] + + + + | PRODUCT | [id number] | | [facility] | | | UNIT [...] + + + + | EXPIRATION | [id number] | | [facility] | | | DATE [...] + + + + | BLOOD | [id number] | | [facility] | | | PRODUCT [...] | + + + + + | [facility] | [address] | [place] [address] | | | SERVICES, | [address] [...] + + + + | PRODUCT | [id number] | | [facility] | | | UNIT [...] + + + + | EXPIRATION | [id number] | | [facility] | | | DATE [...] + + + + | BLOOD | [id number] | | [facility] | | | PRODUCT [...] | + + + + + | [facility] | [address] | [place] [address] | | | SERVICES, | [address] [...] + + + + | PRODUCT | [id number] | | [facility] | | | UNIT [...] + + + + | EXPIRATION | [id number] | | [facility] | | | DATE [...] + + + + | BLOOD | [id number] | | [facility] | | | PRODUCT [...] | + + + + + | [facility] | [address] | [place] [address] | | | SERVICES, | [address] [...] + + + + | PRODUCT | [id number] | | [facility] | | | UNIT [...] + + + + | EXPIRATION | [id number] | | [facility] | | | DATE [...] + + + + | BLOOD | [id number] | | [facility] | | | PRODUCT [...] [facility] | [address] | [place] [address] | | | SERVICES, | [address] [...] + + + + | PRODUCT | [id number] | | [facility] | | | UNIT [...] + + + + | EXPIRATION | [id number] | | [facility] | | | DATE [...] + + + + | BLOOD | [id number] | | [facility] | | | PRODUCT [...] [facility] | [address] | [place] [address] | | | SERVICES, | [address] [...] + + + + | PRODUCT | [id number] | | [facility] | | | UNIT [...] + + + + | EXPIRATION | [id number] | | [facility] | | | DATE [...] + + + + | BLOOD | [id number] | | [facility] | | | PRODUCT [...] [facility] | [address] | [place] [address] | | | SERVICES, | [address] [...] + + + + | PRODUCT | [id number] | | [facility] | | | UNIT [...] + + + + | EXPIRATION | [id number] | | [facility] | | | DATE [...] + + + + | BLOOD | [id number] | | [facility] | | | PRODUCT [...] [facility] | [address] | [place] [address] | | | SERVICES, | [address] [...] + + + + | PRODUCT | [id number] | | [facility] | | | UNIT [...] + + + + | EXPIRATION | [id number] | | [facility] | | | DATE [...] + + + + | BLOOD | [id number] | | [facility] | | | PRODUCT [...] [facility] | [address] | [place] [address] | | | SERVICES, | [address] [...] + + + + | PRODUCT | [id number] | | [facility] | | | UNIT [...] + + + + | EXPIRATION | [id number] | | [facility] | | | DATE [...] + + + + | BLOOD | [id number] | | [facility] | | | PRODUCT [...] [facility] | [address] | [place] [address] | | | SERVICES, | [address] [...] + + + + | PRODUCT | [id number] | | [facility] | | | UNIT [...] + + + + | EXPIRATION | [id number] | | [facility] | | | DATE [...] + + + + | BLOOD | [id number] | | [facility] | | | PRODUCT [...] LABORATORY | [address] | [place] [address] | | | SERVICES, | [address] [...] + + + + | PRODUCT | [id number] | | [facility] | | | UNIT [...] + + + + | EXPIRATION | [id number] | | [facility] | | | DATE [...] + + + + | BLOOD | [id number] | | [facility] | | | PRODUCT [...] | + + + + + | [facility] | [address] | [place] [address] | | | SERVICES, | [address] [...] + + + + | PRODUCT | [id number] | | [facility] | | | UNIT [...] + + + + | EXPIRATION | [id number] | | [facility] | | | DATE [...] + + + + | BLOOD | [id number] | | [facility] | | | PRODUCT [...] | + + + + + | [facility] | [address] | [place] [address] | | | SERVICES, | [address] [...] + + + + | PRODUCT | [id number] | | [facility] | | | UNIT [...] + + + + | EXPIRATION | [id number] | | [facility] | | | DATE [...] + + + + | BLOOD | [id number] | | [facility] | | | PRODUCT [...] | + + + + + | [facility] | [address] | [place] [address] | | | SERVICES, | [address] [...] + + + + | PRODUCT | [id number] | | [facility] | | | UNIT [...] + + + + | EXPIRATION | [id number] | | [facility] | | | DATE [...] + + + + | BLOOD | [id number] | | [facility] | | | PRODUCT [...] | + + + + + | [facility] | [address] | [place] [address] | | | SERVICES, | [address] [...] + + + + | PRODUCT | [id number] | | [facility] | | | UNIT [...] + + + + | EXPIRATION | [id number] | | [facility] | | | DATE [...] + + + + | BLOOD | [id number] | | [facility] | | | PRODUCT [...] [facility] | [address] | [place] [address] | | | SERVICES, | [address] [...] | + + + + + | [facility] | [address] | [place] [address] | | | SERVICES, NATALEE | [address] [...] | | | LABORATORY | | | ROMANIAN | | | SERVICES, | | | [...] + | [facility] | [address] | [place] [address] | | | SERVICES, CORE | PARK [...] | + + + + + | [facility] | [address] | [place] [address] | | | SERVICES, CORE | VILMA [...] - [facility] | [address] | [place], [place] | | | [place] [facility] | [address] | [address] | | | TESTS | | | [...] Note | + + | Service Account, Varioptic In Interface - 09/01/2017 1:40 PM PDT [...] + + + + | PRODUCT | [id number] | | [facility] | | | UNIT [...] + + + + | EXPIRATION | [id number] | | [facility] | | | DATE [...] + + + + | BLOOD | [id number] | | [facility] | | | PRODUCT [...] | + + + + + | [facility] | [address] | [place] [address] | | | SERVICES, | [address] [...] + + + + | PRODUCT | [id number] | | [facility] | | | UNIT [...] + + + + | EXPIRATION | [id number] | | [facility] | | | DATE [...] + + + + | BLOOD | [id number] | | [facility] | | | PRODUCT [...] | + + + + + | [facility] | [address] | [place] [address] | | | SERVICES, | [address] [...] + + + + | PRODUCT | [id number] | | [facility] | | | UNIT [...] + + + + | EXPIRATION | [id number] | | [facility] | | | DATE [...] + + + + | BLOOD | [id number] | | [facility] | | | PRODUCT [...] [facility] | [address] | [place] [address] | | | SERVICES, | [address] [...] + + + + | PRODUCT | [id number] | | [facility] | | | UNIT [...] + + + + | EXPIRATION | [id number] | | [facility] | | | DATE [...] + + + + | BLOOD | [id number] | | [facility] | | | PRODUCT [...] [facility] | [address] | [place] [address] | | | SERVICES, | [address] [...] + + + + | PRODUCT | [id number] | | [facility] | | | UNIT [...] + + + + | EXPIRATION | [id number] | | [facility] | | | DATE [...] + + + + | BLOOD | [id number] | | [facility] | | | PRODUCT [...] [facility] | [address] | [place] [address] | | | SERVICES, | [address] [...] + + + + | PRODUCT | [id number] | | [facility] | | | UNIT [...] + + + + | EXPIRATION | [id number] | | [facility] | | | DATE [...] + + + + | BLOOD | [id number] | | [facility] | | | PRODUCT [...] [facility] | [address] | [place] [address] | | | SERVICES, | [address] [...] + + + + | PRODUCT | [id number] | | [facility] | | | UNIT [...] + + + + | EXPIRATION | [id number] | | [facility] | | | DATE [...] + + + + | BLOOD | [id number] | | [facility] | | | PRODUCT [...] [facility] | [address] | [place] [address] | | | SERVICES, | [address] [...] + + + + | PRODUCT | [id number] | | [facility] | | | UNIT [...] + + + + | EXPIRATION | [id number] | | [facility] | | | DATE [...] + + + + | BLOOD | [id number] | | [facility] | | | PRODUCT [...] | + + + + + | [facility] | [address] | [place] [address] | | | ELIN, | [address] | | | | TRANSFUSION MEDICINE | | | | + + + + + CT HEAD WO CONTRAST (09/01/2017 8:42 AM PDT) + + | Specimen | + + | | + + + + + | Narrative | Performed At | + + + | EXAM: CT head without contrast HISTORY: Follow-up intracranial | [facility] | | hemorrhage. COMPARISON: Multiple prior head [...] + + + + | PRODUCT | [id number] | | [facility] | | | UNIT [...] + + + + | EXPIRATION | [id number] | | [facility] | | | DATE [...] + + + + | BLOOD | [id number] | | [facility] | | | PRODUCT [...] [facility] | [address] | [place] [address] | | | SERVICES, | [address] [...] | + + + + + | [facility] | [address] | [place] [address] | | | SERVICES, CORE | [address] [...] [facility] | [address] | [place] [address] | | | SERVICES, CORE | [address] [...] | | | LABORATORY | | | ROMANIAN | | | SERVICES, | | | [...] [facility] | [address] | [place] [address] | | | SERVICES, CORE | [address] [...] | + + + + + | [facility] | [address] | [place] [address] | | | SERVICES, CORE | [address] [...] [facility] | [address] | [place] [address] | | | SERVICES, CORE | [address] [...] | + + + + + | [facility] | [address] | [place] [address] | | | [facility] | [address] | | | + [...] pleural spaced was performed. A 32 size [place] chest tube was | | | placed [...] [facility] | [address] | [place], [place] | | | [facility] | [facility] | [address] | | | TESTS | | | [...] [facility] | [address] | [place] [address] | | | SERVICES, CORE | [address] [...] | + + + + + | [facility] | [address] | [place] [address] | | | NATALEE WORTHINGTON | [address] [...] | | + +---------+ + + | [facility] | | | | [...] | + + + + + | [facility] | [address] | [place] [address] | | | SERVICES, [facility] | [address] | | | + + + + + X-RAY PORTABLE CHEST 1 VIEW (08/31/2017 7:07 PM PDT) + + | Specimen | + + | | + + + + + | Narrative | Performed At | + + + | STUDY: WA CHEST 1 VIEW HISTORY: Trauma COMPARISON: CT CAP | [facility] | | 08/31/2017 FINDINGS: Endotracheal [...] | | + +---------+ + + | [facility] | | | | [...] | + + + + + | [facility] | [address] | [place] [address] | | | SERVICES, CORE | [address] [...] rib, nondisplaced-Left | | 1st rib fracture, imuzbynqqeuu-Jlv-aiyubnqpa left lateral 8th rib fracture-T12 fracture | [...] Note | + + | Service Account, Integral Visionant Res In Interface - 08/31/2017 8:10 PM [...] | + + + + + | [facility] | [address] | [place] [address] | | | SERVICES, | [address] [...] [facility] | [address] | [place] [address] | | | SERVICES, | [address] [...] + | [facility] | [address] | [place] [address] | | | SERVICES, | [address] [...] - [facility] | [address] | [place], [place] | | | [facility] GE[facility] | [address] | [address] | | | TESTS | | | [...] + + + | [facility] | [address] | [place], [place] | | | [place] [facility] | [address] | [address] | | | TESTS | | | [...] [facility] | [address] | [place], [place] | | | [facility] | [facility] | [address] | | | TESTS | | | [...] - PIYUSH | [address] | [place], [place] | | | [facility] | [facility] | [address] | | | TESTS | | | [...] + + + + | PRODUCT | [id number] | | [facility] | | | UNIT [...] + + + + | EXPIRATION | [id number] | | [facility] | | | DATE [...] + + + + | BLOOD | [id number] | | [facility] | | | PRODUCT [...] [facility] | [address] | [place] [address] | | | SERVICES, | [address] [...] + + + + | PRODUCT | [id number] | | [facility] | | | UNIT [...] + + + + | EXPIRATION | [id number] | | [facility] | | | DATE [...] + + + + | BLOOD | [id number] | | [facility] | | | PRODUCT [...] [facility] | [address] | [place] [address] | | | SERVICES, | [address] [...] + + + + | PRODUCT | [id number] | | [facility] | | | UNIT [...] + + + + | EXPIRATION | [id number] | | [facility] | | | DATE [...] + + + + | BLOOD | [id number] | | [facility] | | | PRODUCT [...] | + + + + + | [facility] | [address] | [place] [address] | | | SERVICES, | [address] [...] + + + + | PRODUCT | [id number] | | [facility] | | | UNIT [...] + + + + | EXPIRATION | [id number] | | [facility] | | | DATE [...] + + + + | BLOOD | [id number] | | [facility] | | | PRODUCT [...] | + + + + + | [facility] | [address] | [place] [address] | | | SERVICES, | [address] [...] + + + + | PRODUCT | [id number] | | [facility] | | | UNIT [...] + + + + | EXPIRATION | [id number] | | [facility] | | | DATE [...] + + + + | BLOOD | [id number] | | [facility] | | | PRODUCT [...] | + + + + + | [facility] | [address] | [place] [address] | | | SERVICES, | [address] [...] + + + + | PRODUCT | [id number] | | [facility] | | | UNIT [...] + + + + | EXPIRATION | [id number] | | [facility] | | | DATE [...] + + + + | BLOOD | [id number] | | [facility] | | | PRODUCT [...] | + + + + + | [facility] | [address] | [place] [address] | | | SERVICES, | [address] [...] + + + + | PRODUCT | [id number] | | [facility] | | | UNIT [...] + + + + | EXPIRATION | [id number] | | [facility] | | | DATE [...] + + + + | BLOOD | [id number] | | [facility] | | | PRODUCT [...] | + + + + + | [facility] | [address] | [place] [address] | | | SERVICES, | [address] [...] + + + + | PRODUCT | [id number] | | [facility] | | | UNIT [...] + + + + | EXPIRATION | [id number] | | [facility] | | | DATE [...] + + + + | BLOOD | [id number] | | [facility] | | | PRODUCT [...] [facility] | [address] | [place] [address] | | | SERVICES, | [address] [...] | + + + + + | [facility] | [address] | [place] [address] | | | SERVICES, NATALEE | [address] [...] | | | LABORATORY | | | ROMANIAN | | | SERVICES, | | | [...] | + + + + + | [facility] | [address] | [place] [address] | | | SERVICES, CORE | VILMA [...] valves (2.5 - 3.5) INR APTT | [facility], CORE | | Therapeutic Range: (75 - 120) sec | | | Heparin levels of 0.35 - 0.7 U/mL | | + + + + + + + + | Performing | Address | City/State/Zipcode | Phone Number | | Organization | | | | + + + + + | [facility] | [address] | [place] [address] | | | [place], [facility] | [address] | | | + [...] [facility] | [address] | [place] [address] | | | SERVICES, CORE | PARK [...] | + + + + + | [facility] | [address] | [place] [address] | | | SERVICES, NATALEE | VILMA [...] + + + | [facility] | [address] | [place] [address] | | | SERVICES, CORE | VILMA [...]
--- OUTSIDE RECORDS SUMMARY | ~2019-12-20 | XMS | Encounter Summary ---
Demographics + + + | Address | [address] | | | [place] [address] | + + + | Home Phone [...] + + + | Author | [facility] | + + + | Organization | [facility] [employer] [facility] | + + + | Address | Unknown | + + + | Phone | Unavailable | + + + Support + + +---------+ + | Name | Relationship | Address | Phone | + + +---------+ + | Kaylie Baig | ECON | Unknown | | + + +---------+ + Care Team Providers + +------+ + | Care Staff Analyst Name | Role | Phone | [...] [facility] | | | | | [facility] | [address] | | | | | Hospital Admitting | [place], [place] | | | | | Desk Located on the | [address] | | | | | 9th floor | [phone] | | | | | [place], [place] | | | | | | [address] | Jennifer [place] CRNA | | | | | | [address] | | | | | | [place] [facility] | | | | | | [place] [address] | | | | | | [phone] | | | | | | | [...] centrally accessed); | | | | | [id number]; 10/22/17; 1542; | | | | | [...] 1733 by | | g Tube | ([facility] low profile g-tube 18 fr | Katrin Watson RN | Doreen Lopez RN | | | 3.5 cm); Abdomen UL; 18; | | | | | tolerated well; 10/12/17; 1733 | | | +--------+ + + + | Urethr | 10/12/17; (Denae eSth); 1; Cabrera; | 10/12/17 0000 by | [...] by | 10/12/171731 by | | | ([place] 19fr channel drain); | Valeria Seth RN [...] MD - 10/12/2017 7:12 PM PDTRusslucero barker [id number] No Known Allergies No past surgical history [...] be different from the original. [place] [facility] [id number] No Known Allergies NPO:NPO Status: since admission [...] Date RATE 119 10/11/2017 ATRIALRATE 119 10/11/2017 CO 164 10/11/2017 QRS 121 10/11/2017 QT 347 [...]
--- OUTSIDE RECORDS SUMMARY | ~2019-12-20 | XMS | Encounter Summary ---
Demographics + + + | Address | [address] | | | [place] [address] | + + + | Home Phone [...] + | Author | [facility] [employer] [facility] | + + + | Organization | [facility] [employer] [facility] | + + + | Address | Unknown | + + + | Phone | Unavailable | + + + Support + + +---------+ + | Name | Relationship | Address | Phone | + + +---------+ + | Kaylie Baig | ECON | Unknown | | + + +---------+ + Care Team Providers + +------+ + | Care Smash Fixer Name | Role | Phone | + [...] CENTER | | | | | | [address] | | | | | | [place] | | | | | | [facility], [address] [place] [address] | | | | | | [place], [place] | | | | | | [address] | | | | | | [phone] | | | +--------+ + + + [...]
--- OUTSIDE RECORDS SUMMARY | ~2019-12-20 | XMS | Encounter Summary ---
Demographics + + + | Address | [address] | | | [place] [address] | + + + | Home Phone [...] Author + + + | Author | [facility] | + + + | Organization | [facility] | + + + | Address | Unknown | + + + | Phone | Unavailable | + + + Support + + +---------+ + | Name | Relationship | Address | Phone | + + +---------+ + | Kaylie Baig | ECON | Unknown | | + + +---------+ + Care Team Providers + +------+ + | Care Personal Driver Name | Role | Phone | + [...] 2017 | | [facility] | [address] | | | | | [facility] | [place] | | | | | Hospital Admitting | [place], [place] | | | | | Desk Located on the | [address] | | | | | 9th floor | [phone] | | | | | [place], [place] | | | | | | [phone] | | | +--------+---------+ + + + [...] might be d ifferent from the original. [facility] Discharge Summary Discharging Provider: KESHAWN Martin [...] risk for aspiration # nutrition - NPO, LICENSED MENTAL HEALTH COUNSELOR evaluating patient when out of c collar [...] - Neurosurgery following peripherally - Must wear ROLLOUT MANAGER when OOB, ok for C-collar only when in bed - 12 week collar period up on 11/23, Neurosurgery documented C collar/ROLLOUT MANAGER weaning protocol o pete next 5 [...] DC. He will need home health PT/ OT/LICENSED MENTAL HEALTH COUNSELOR, which will not be arranged until next [...] None required Recommended rehabilitation therapies: Home health PT/OT/LICENSED MENTAL HEALTH COUNSELOR Discharge Medications: Medication List START taking these [...] that I, or Nurse Practitioner or Physician Web Application Dev Specialist working with me, had a face to face encounter with this patient on 12/06/2017 On behalf of Attending Physician: Chaz Hernandez MD I am ordering and certify that the following services are medically necessary [facility] Physical Therapy Evaluate and Treat I am ordering and certify that the following services are medically necessary [facility] Home Health Occupational Therapy Evaluate and Treat I am ordering and certify that the following services are medically necessary [facility] Home Health Speech Language Pathology Evaluate and Treat I am ordering and certify that the following services are medically necessary [facility] Home Health BELL ATTENDANT Evaluate and Treat I certify that the patient is homebound based on the following clinical findings Post-hospi rakesh weakness, decreased strength and endurance, and tires easily with minimal exertion Follow Up: Schedule the following appointment(s) when you get home Call [facility]. Why: As needed with questions, not mandatory Contact information [address] [facility] [address] Primary care provider. Schedule [...] is 23.14 kg/m. Discharging Provider: Sherine Sarmiento [facility] Discharging Surgeon : Magali Elias MD [facility] Division of Acute Care Surgery/Critical Care [address] [place] [address] Mffbhxegeerxon signed by Magali Elias MD,MPH at 12/09/2017 [...] EOMI Neck: weaning cervical aspen collar & ROLLOUT MANAGER per NSG weaning protocol Respiratory: unlabored [...] Started bolus tube feeds 11/23: Begun C collar/ROLLOUT MANAGER weaning 11/28: Psychiatry re-consulted for behavioral [...] risk for aspiration # nutrition - NPO, LICENSED MENTAL HEALTH COUNSELOR evaluating patient when out of c collar [...] - Neurosurgery following peripherally - Must wear ROLLOUT MANAGER when OOB, ok for C-collar only when in bed - 12 week collar period up on 11/23, Neurosurgery documented C collar/ROLLOUT MANAGER weaning protocol o pete next 5 [...] obic coverage Disposition: continue tube feeds, continue LICENSED MENTAL HEALTH COUNSELOR evals while c collar off. Started depakote f or agitation with good response. Girlfriend Magali will be visiting today, this is ok per his sister Annita (see social work note). [place] [address] [facility] [address] [place] [phone] Associated attestation - Magali Elias MD,MPH - [...] less agitated overnight per nursing Remains in [place] vest Current meds: I have independently reviewed [...] EOMI Neck: weaning cervical aspen collar & ROLLOUT MANAGER per NSG weaning protocol Respiratory: unlabored [...] Started bolus tube feeds 11/23: Begun C collar/ROLLOUT MANAGER weaning 11/28: Psychiatry re-consulted for behavioral [...] risk for aspiration # nutrition - NPO, LICENSED MENTAL HEALTH COUNSELOR evaluating patient when out of c collar [...] - Neurosurgery following peripherally - Must wear ROLLOUT MANAGER when OOB, ok for C-collar only when in bed - 12 week collar period up on 11/23, Neurosurgery documented C collar/ROLLOUT MANAGER weaning protocol o pete next 5 [...] obic coverage Disposition: continue tube feeds, continue LICENSED MENTAL HEALTH COUNSELOR evals while c collar off. Started depakote f or agitation with good initial response. Pending placement at adult foster home Sherine Sarmiento, [facility] [place] [address] [facility] [place] [address] [phone] Associated attestation - Magali Elias MD,MPH - 12/04/2017 2:23 PM PDTI was present and rounded with the ANP Sherine Sarmiento today. I interviewed and examined the patient. I reviewed the history, as documented today. I participated in the development of and agree wi th the assessment and plan. Much less agitated. Continue current care. Sherine Sarmiento, [facility] - 12/03/2017 6:30 AM PDTFormatting of [...] Started bolus tube feeds 11/23: Begun C collar/ROLLOUT MANAGER weaning 11/28: Psychiatry re-consulted for behavioral [...] risk for aspiration # nutrition - NPO, LICENSED MENTAL HEALTH COUNSELOR evaluating patient when out of c collar [...] - Neurosurgery following peripherally - Must wear ROLLOUT MANAGER when OOB, ok for C-collar only when in bed - 12 week collar period up on 11/23, Neurosurgery documented C collar/ROLLOUT MANAGER weaning protocol o pete next 5 [...] obic coverage Disposition: continue tube feeds, continue LICENSED MENTAL HEALTH COUNSELOR evals while c collar off. Starting depakote for agitation. Pending placement [place] adult [place] [address] [facility] [place] [address] [place] [address] [phone] Associated attestation - Magali Elias MD,MPH - [...] . Ok to resume feeds. Ad Callejas [id number] rafts, Venita Rod PA-C - 12/02/2017 10:55 [...] Started bolus tube feeds 11/23: Begun C collar/ROLLOUT MANAGER weaning 11/28: Psychiatry re-consulted for behavioral [...] risk for aspiration # nutrition - NPO, LICENSED MENTAL HEALTH COUNSELOR evaluating patient when out of c collar [...] - Neurosurgery following peripherally - Must wear ROLLOUT MANAGER when OOB, ok for C-collar only [...] obic coverage Disposition: continue tube feeds, continue LICENSED MENTAL HEALTH COUNSELOR evals while c collar off. Optimize sleep. Venita Prutit PA-[place] [phone] [place] [phone] [facility] [place] [address] [address] [facility] [place] [address] Associated attestation - Magali [...] Started bolus tube feeds 11/23: Begun C collar/ROLLOUT MANAGER weaning 11/28: Psychiatry re-consulted for behavioral [...] risk for aspiration # nutrition - NPO, LICENSED MENTAL HEALTH COUNSELOR evaluating patient when out of c collar [...] - Neurosurgery following peripherally - Must wear ROLLOUT MANAGER when OOB, ok for C-collar only [...] obic coverage Disposition: continue tube feeds, continue LICENSED MENTAL HEALTH COUNSELOR evals while c collar off. Going back on hald ol for aggression. Optimize sleep. Venita Pruitt PA-C P[place] [phone] [place] [facility] [phone] Associated attestation - Nubia Nieto MD,MPH - 12/01/2017 2:17 PM PDTATTENDING ADDENDU M: I personally interviewed and examined the patient today with the trauma team and the physic gabriela personal care assistant. I participated in the development of and agree with the assessment and plan. 1. Scheduled haloperidol BID 5mg. Plus PRN 2. Continue LICENSED MENTAL HEALTH COUNSELOR evaluation 3. Melatonin for qHS sleep Nubia Nieto MD, MPH Attending Surgeon Trauma, Critical Care & Acute Care Surgery [facility] [phone] Monse Carrasco MD,MPH - 11/30/2017 10:43 AM [...] EOMI Neck: intermittently in aspen collar and ROLLOUT MANAGER Respiratory: unlabored on room air CV: [...] Started bolus tube feeds 11/23: Begun C collar/ROLLOUT MANAGER weaning 11/28: Psychiatry re-consulted for behavioral [...] risk for aspiration # nutrition - NPO, LICENSED MENTAL HEALTH COUNSELOR evaluating patient when out of c collar [...] - Neurosurgery following peripherally - Must wear ROLLOUT MANAGER when OOB, ok for C-collar only [...] obic coverage Disposition: continue tube feeds, continue LICENSED MENTAL HEALTH COUNSELOR evals while c collar off. Optimize sleep. Monse Carrasco MD MPH [facility] [place] [address] [phone] Associated attestation - Shlomo Bravo MD - 12/05/2017 10:55 AM PDTI saw and examined Charli Temple ([id number]) with the TRAUMA team on 11/30/2017. I agree with the assessment and plan a s outlined in this note and participated in the planning of care. I have personally reviewed all pertinent labarotory findings, radiographs, and physiologic parameters. I personally pe rformed pertinent parts of the physical examination and personally formulated the plan with the TRAUMA team. Shlomo Bravo MD [facility] Licensed Practical [facility] Division of Trauma and Critical Care [...] scalp, EOMI Neck: in aspen collar and ROLLOUT MANAGER Respiratory: unlabored on room air CV: [...] Started bolus tube feeds 11/23: Begun C collar/ROLLOUT MANAGER weaning 11/28: Psychiatry re-consulted for behavioral [...] risk for aspiration # nutrition - NPO, LICENSED MENTAL HEALTH COUNSELOR evaluating patient when out of c collar [...] - Neurosurgery following peripherally - Must wear ROLLOUT MANAGER when OOB, ok for C-collar only [...] [facility] now [facility] on Ke[place] ra [...] obic coverage Disposition: continue tube feeds, continue LICENSED MENTAL HEALTH COUNSELOR evals and c collar weaning. Optimize sleep Monse Carrasco MD MPH [facility] [address] [place] [address] [phone] Associated attestation - Brian Painting MD - 12/08/2017 7:33 PM PDTAttending: I saw and examined Diogenes Temple ([id number]) with the residents on 11/29/17 and agree with th e assessment and plan as outlined in this note and participated in the planning of care. Brian Painting MD FACS quality rn Division of Trauma, Critical Care & Acute [...] scalp, EOMI Neck: in aspen collar and ROLLOUT MANAGER Respiratory: unlabored on room air CV: [...] Started bolus tube feeds 11/23: Begun C collar/ROLLOUT MANAGER weaning 11/28: Psychiatry re-consulted for behavioral [...] risk for aspiration # nutrition - NPO, LICENSED MENTAL HEALTH COUNSELOR evaluating patient when out of c collar [...] - Neurosurgery following peripherally - Must wear ROLLOUT MANAGER when OOB, ok for C-collar only [...] obic coverage Disposition: continue tube feeds, continue LICENSED MENTAL HEALTH COUNSELOR evals and c collar weaning Monse Carrasco MD MPH [facility] [place] [address] [phone] Associated attestation - Brian Painting MD - 11/28/2017 11:06 PM PDTAttending: I saw and examined Diogenes Temple ([id number]) with the residents on 11/28/17 and agree with e assessment and plan as outlined in this note and participated in the planning of care. Brian Painting MD FACS quality rn Division of Trauma, Critical Care & Acute Care Surgery Fernando Li PA - 11/27/2017 3:32 PM PDTFormatting of this note might be differe nt from the original. NEUROSURGERY INPATIENT PROGRESS NOTE Hospital Day:88 Author; FERNANDO LI PA-C Attending Physician: Chaz Hernandez MD Neurosurgery: Magdiel Stock MD Interval Hx: -No events overnight -In process of ROLLOUT MANAGER weaning. Denies neck pain. Physical Exam: [...] [facility] 01/2017 w ith post op [...] Patient being managed in C collar and ROLLOUT MANAGER. -Patient developed drainage from previous crani [...] imary Team. -Instructions have been provided for ROLLOUT MANAGER weaning. -Patient's exam stable. Denies Neck pain. Repeat imaging stable. Scalp incision healing well. -Please contact our service if there are any questions or need to re-consult. -No outpatient Neurosurgery FU needed. FERNANDO LI PA-C [facility] [address] [place] [address] Pg [phone] MEDICATIONS Current Facility-Administered Medications Medication acetaminophen (TYLENOL) [...] scalp, EOMI Neck: in aspen collar and ROLLOUT MANAGER Respiratory: unlabored on room air CV: [...] Started bolus tube feeds 11/23: Begun C collar/ROLLOUT MANAGER weaning Active issues/Plan: # BIG 3 [...] risk for aspiration # nutrition - NPO, LICENSED MENTAL HEALTH COUNSELOR evaluating patient when out of c collar [...] - Neurosurgery following peripherally - Must wear ROLLOUT MANAGER when OOB, ok for C-collar only [...] obic coverage Disposition: continue tube feeds, continue LICENSED MENTAL HEALTH COUNSELOR evals and c collar weaning CHRISTIAN KELLEY PA-C [facility] [address] [place] [address] [phone] Associated attestation - Brian Painting MD - 11/27/2017 8:50 PM PDTAttending: I saw and examined Diogenes Temple ([id number]) with Christian Kelley PA-C on 11/27/17 and agree wi th the assessment and plan as outlined in this note and participated in the planning of care . Increase melatonin and trazodone for insomnia. Enteral feeding via PEG tube for dysphagia. Disposition planning. Brian Painting MD FACS quality rn Division of Trauma, Critical Care & Acute Care Surgery [facility], Venita Rod PA-C - 11/26/2017 6:25 [...] Weaning C- collar based on NSG plan LICENSED MENTAL HEALTH COUNSELOR continues to follow Current meds: I have [...] Started bolus tube feeds 11/23: Begun C collar/ROLLOUT MANAGER weaning Active issues/Plan: # BIG 3 [...] risk for aspiration # nutrition - NPO, LICENSED MENTAL HEALTH COUNSELOR evaluating patient when out of c collar [...] - Neurosurgery following peripherally - Must wear ROLLOUT MANAGER when OOB, ok for C-collar only [...] looking for placement Venita Pruitt PA-[place] [phone] [place] [phone] [facility] [place] [phone] [facility] [place] [address] Associated attestation - Brian Painting MD - 11/26/2017 8:52 PM PDTAttending: I saw and examined Diogenes Temple ([id number]) with Venita Pruitt PA-C on 11/26/17 and agree wi th the assessment and plan as outlined in this note and participated in the planning of care . Continue enteral feeding via PEG tube due to dysphagia. Speech pathology continues to foll ow. Maintain cervical immbolization collar while in bed for C7 bilateral lamina fractures. D ischarge planning. Brian Painting MD FACS quality rn Division of Trauma, Critical Care & Acute [...] Weaning C- collar based on NSG plan LICENSED MENTAL HEALTH COUNSELOR continues to follow Current meds: I have [...] Started bolus tube feeds 11/23: Begun C collar/ROLLOUT MANAGER weaning Active issues/Plan: # BIG 3 [...] risk for aspiration # nutrition - NPO, LICENSED MENTAL HEALTH COUNSELOR evaluating patient when out of c collar [...] - Neurosurgery following peripherally - Must wear ROLLOUT MANAGER when OOB, ok for C-collar only [...] looking for placement Venita Pruitt PA-C [place] [phone] [place] [phone] [facility] [place] [address] [address] [facility] [place] [facility] [phone] Associated attestation - Brian Painting MD - 11/26/2017 11:56 AM PDTAttending: I saw and examined Diogenes Temple ([id number]) with Venita Pruitt PA-C on 11/25/17 and agree wi th the assessment and plan as outlined in this note and participated in the planning of care . Continue bolus enteral feeding via PEG tube for dysphagia. Trazodone and quetiapine for tr aumatic encephalopathy and agitation. Maintain cervical immbolization collar while in bed. Brian Painting MD FACS quality rn Division of Trauma, Critical Care & Acute [...] events: No acute events overnight Worked with LICENSED MENTAL HEALTH COUNSELOR yesterday - remains NPO Doing well with c collar/civil engineering director weaning plan Current meds: I have [...] to midline right scalp, EOMI Neck: in [place] collar Chest: in ROLLOUT MANAGER Respiratory: unlabored on room air CV: [...] Started bolus tube feeds 11/23: Begun C collar/ROLLOUT MANAGER weaning Active issues/Plan: # BIG 3 [...] risk for aspiration # nutrition - NPO, LICENSED MENTAL HEALTH COUNSELOR evaluating patient when out of c collar [...] - Neurosurgery following peripherally - Must wear ROLLOUT MANAGER when OOB, ok for C-collar only [...] CM looking for placement CHRISTIAN KELLEY PA-C [facility] [address] [address] [phone] Associated attestation - Santos Weiss MD - [...] with speech toward being able to swallow. [id number] Christian Kelley PA-C - 11/23/2017 12:26 PM [...] overnight Planning to begin C collar and ROLLOUT MANAGER weaning plan Current meds: I have [...] to midline right scalp, EOMI Neck: in [place] collar Chest: in ROLLOUT MANAGER Respiratory: CTA bilaterally, lungs symmetrical, equal [...] Started bolus tube feeds 11/23: Begun C collar/ROLLOUT MANAGER weaning Active issues/Plan: # BIG 3 [...] risk for aspiration # nutrition - NPO, LICENSED MENTAL HEALTH COUNSELOR following - PEG tube feeds switched to goal @ 250 mL x 5/day, 225ml free water flushes 5x/day - LICENSED MENTAL HEALTH COUNSELOR to work with patient on swallow while [...] - Neurosurgery following peripherally - Must wear ROLLOUT MANAGER when OOB, ok for C-collar only [...] agitation & sleep management CHRISTIAN KELLEY PA-C [facility] [address] [address] [phone] leRandi estrella [facility] - 11/22/2017 6:37 AM PDTFormatting of [...] risk for aspiration # nutrition - NPO, LICENSED MENTAL HEALTH COUNSELOR following - PEG tube feeds switched to [...] - Neurosurgery following peripherally - Must wear ROLLOUT MANAGER when OOB, ok for C-collar only [...] agitation & sleep [place] [address] [facility] [place] [address] [place] [address] [phone] Associated attestation - Fidelina Shields MD - 11/25/2017 5:51 AM PDTAttending: I saw and examined Diogenes Temple ([id number]) with KESHAWN Alexander on mornin g rounds 11/22/17 and agree with the assessment and plan as outlined in this note and partic ipated in the planning of care. This is a late entry for care provided on that date. Sleep is somewhat improved with adjusted medication regimen. Increasing mobility. Plan c-c ollar weaning per neurosurgery recs. Fidelina Shields MD [facility] Division of Trauma, Critical Care and Acute Care Surgery Office: [phone] Pager: [phone] Fernando Li PA - 11/21/2017 4:21 PM PDTNeurosurgery Brief Note: Reviewed repeat imaging C spine. Ok to start C Collar and ROLLOUT MANAGER taper as planned on 11/23/17. Written [...] LI PA-C [facility] [address] [facility] [address] [place] [address] emo Sarmiento AGACNP - 11/21/2017 6:52 AM [...] risk for aspiration # nutrition - NPO, LICENSED MENTAL HEALTH COUNSELOR following - PEG tube feeds switched to [...] - Neurosurgery following peripherally - Must wear ROLLOUT MANAGER when OOB, ok for C-collar only [...] Sleep & agitation [place] [address] [facility] [address] [address] [phone] Associated attestation - Fidelina Shields MD - 11/21/2017 2:27 PM PDTAttending: I saw and examined Diogenes Temple ([id number]) with KESHAWN Alexander on mornin g rounds [...] mobility and daytime wakefullness. Fidelina Shields MD [facility] Division of Trauma, Critical Care and Acute Care Surgery Office: [phone] Pager: [phone] Venita Pruitt PA-C - 11/20/2017 12:31 PM [...] risk for aspiration # nutrition - NPO, LICENSED MENTAL HEALTH COUNSELOR following - PEG tube feeds switched to [...] - Neurosurgery following peripherally - Must wear ROLLOUT MANAGER when OOB, ok for C-collar only [...] seroquel as needed. Venita Pruitt PA-C [place] [phone] [place] [phone] [facility] [address] [place] [facility] [phone] Associated attestation - Fidelina Shields MD - [...] Placement remains a challenge. Fidelina Shields MD [facility] Division of Trauma, Critical Care and Acute Care Surgery Office: [phone] Pager: [phone] Fernando Li PA - 11/20/2017 10:51 AM [...] Patient being managed in C collar and ROLLOUT MANAGER. -Patient developed drainage from previous crani [...] Spine immobilization. Cervical collar while in bed, ROLLOUT MANAGER when OOB planned duration of immobilization 12 weeks total: 11/23/17. Will then wean out of Cervical collar over 5 week period. Will provide written instructions. CAITIE SCHULTZ-Merle [facility] [address] [facility] [address] [place] [address] Pg [phone] MEDICATIONS Current Facility-Administered Medications Medication acetaminophen (TYLENOL) [...] risk for aspiration # nutrition - NPO, LICENSED MENTAL HEALTH COUNSELOR following - PEG tube feeds switched to [...] - Neurosurgery following peripherally - Must wear ROLLOUT MANAGER when OOB, ok for C-collar only [...] seroquel as needed. Venita Pruitt PA-C [place] [phone] [place] [phone] [facility] [address] [place] [facility] [phone] Associated attestation - Fidelina Shields MD - 11/19/2017 2:24 PM PDTAttending: I saw and examined Diogenes Temple with Venita Pruitt PA-C on morning rounds 11/19/17 and ag ree with the assessment and plan as outlined in this note and participated in the planning o f care. Adjusting antipsychotic medication and behavioral interventions while we search for suitabl e discharge plan. Fidelina Shields MD [facility] Division of Trauma, Critical Care and Acute Care Surgery Office: [phone] Pager: [phone] Fernando Li PA - 11/18/2017 9:03 AM [...] O2 Delivery Device: None (room air) (11/18/17 0717) 24 Hour Vital Min/Max: Systolic (24hrs), Av [...] Patient being managed in C collar and ROLLOUT MANAGER. -Patient developed drainage from previous crani [...] Spine immobilization. Cervical collar while in bed, ROLLOUT MANAGER when OOB planned duration of immobilization 12 weeks total: 11/23/17. Will then wean out of Cervical collar over 5 week period. Will provide written instructions. FERNANDO LI PA-C [facility] [address] [facility] [address] [place] [address] Pg [phone] MEDICATIONS Current Facility-Administered Medications Medication acetaminophen (TYLENOL) [...] risk for aspiration # nutrition - NPO, LICENSED MENTAL HEALTH COUNSELOR following - PEG tube feeds switched to [...] - Neurosurgery following peripherally - Must wear ROLLOUT MANAGER when OOB, ok for C-collar only when in bed - Will likely need for 12 weeks (ends November 23), then wean out of Cervical collar over 5 w native period. Per NSG they will provide written [...] haldol as tolerated Venita Pruitt PA-C [place] [phone] [place] [phone] [facility] [address] [place] [facility] [phone] Associated attestation - Fidelina Shields MD - 11/19/2017 12:18 AM PDTAttending: I saw and examined Diogenes Temple with Venita Pruitt PA-C on morning rounds 11/18/17 and ag ree with the assessment and plan as outlined in this note and participated in the planning o f care. Mental status continues to wax/wane, working on disposition options. Fidelina Shields MD [facility] Division of Trauma, Critical Care and Acute Care Surgery Office: [phone] Pager: [phone] Sherine Sarmiento AGACNP - 11/17/2017 10:49 AM [...] risk for aspiration # nutrition - NPO, LICENSED MENTAL HEALTH COUNSELOR following - PEG tube feeds switched to goal @ 275 mL x 5/day, 200ml free water flushes 5x/day # insomnia - melatonin 3mg qhs - Haldol 5mg Qhs - Trazadone increased from 50 [id number] QHS with no effect - Start Quetiapine 50mg QHS with 25mg Q12hrs PRN, with the goal of uptitrating seroquel and weaning off haldol - ECG 11/17 QTC 427 #Relative hypotension - Improving after initiation of free water flushes - Orthostatics negative # 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 Per NSG they will provide written [...] effect, will add seroquel today Sherine Sarmiento, [facility] [phone] [facility] [place] [address] [facility] [address] Associated attestation - Em Cunningham MD - 11/27/2017 9:13 PM PDTI was present and rou nded with the Advanced Practice Provider today. I interviewed and examined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 bilaterally, lungs symmetrical, equal chest wall rise, no retractions CV: RRR GI: non tender, soft, active BS, last BM 09/30 : Patient voiding without difficulty Extremities: no peripheral edema, wiggles toes and toes pink and well perfused Musculoskeletal: 5/5 customer relations advisor strength on right, 3/5 customer relations advisor strength on left FEN: on TPN Heme/ID: [...] AMS & delirium - numerous evaluations by LICENSED MENTAL HEALTH COUNSELOR with trials of PO - now s/p modified barium swallow x2 which indicates aspiration - continue NPO - LICENSED MENTAL HEALTH COUNSELOR reports that patient working on tongue strength [...] . - C-collar at all times, use ROLLOUT MANAGER when OOB - Follow-up with Neurosurgery on 10/21 with repeat X-rays #Blunt abdominal trauma #Splenic laceration S/p laparotomies x2. Fascia closed 09/02 Wound vac removed by patient, but wound remains duke n/dry/intact. [place] removed 09/17. #Left hemothorax Chest tube placed [...] trauma team and [place] [phone] Associated attestation - Fidelina Shields MD - 10/02/2017 4:40 PM PDTAttending: I saw and examined Diogenes Temple ([id number]) with KESHAWN Alexander on mornin g rounds 10/01/17 and agree with the assessment and plan as outlined in this note and partic ipated in the planning of care. Will trial DHT placement today, CT head unchanged. Suspect somnolence is medication side ef fect and, if persistent, may need to wean antipsychotic doses. Fidelina Shields MD [facility] Division of Trauma, Critical Care and Acute Care Surgery Office: [phone] Pager: [phone] Christian Kelley PA-C - 09/30/2017 12:21 PM [...] Fixed and dilated on left Neck: in [place] collar Respiratory: CTA bilaterally, lungs symmetrical, equal chest wall rise, no retractions CV: RRR GI: non tender, soft, active BS, last BM 09/30 : Patient voiding without difficulty Extremities: no peripheral edema, wiggles toes and toes pink and well perfused Musculoskeletal: 5/5 customer relations advisor strength on right, 3/5 customer relations advisor strength on left FEN: on TPN Heme/ID: [...] AMS & delirium - numerous evaluations by LICENSED MENTAL HEALTH COUNSELOR with trials of PO - now s/p modified barium swallow x2 which indicates aspiration - continue NPO - LICENSED MENTAL HEALTH COUNSELOR reports that patient working on tongue strength [...] . - C-collar at all times, use ROLLOUT MANAGER when OOB - Follow-up with Neurosurgery [...] PDTAttending: I saw and examined Diogenes Temple ([id number]) with Christian Kelley PA-C on morning rounds 09/30 and agree with the assessment and plan as outlined in this note and participated in the planning of care. Mentally slower this morning, but non-focal. Received haldol overnight for sleep. Repeat head CT was unchanged so suspect etiology of slowed responsiveness is the antipsychotic dose . LICENSED MENTAL HEALTH COUNSELOR believes that, once collar off, may be able to take PO more effectively and thus will hold off on surgical feeding access. TPN is a temporary solution and if patient remains kaye nable will trial DHT tomorrow. Working with psychiatry for medication recommendations. Fidelina Shields MD [facility] Division of Trauma, Critical Care and Acute Care Surgery Office: [phone] Pager: [phone] July Harp PA-C - 09/30/2017 8:23 AM PDTBrief Neurosurgery Wound Check: Wound is dry, without erythema, not fluctuant. No acute swelling. Nylon in place. Will plan to follow peripherally for wound checks and remove nylons on 10/09. JULY HARP PA-C [facility] [address] [place] [address] Christian Begum PA-C - 09/29/2017 7:15 AM [...] and EOMs intact to exam Neck: in [place] collar Respiratory: CTA bilaterally, lungs symmetrical, equal [...] AMS & delirium - numerous evaluations by LICENSED MENTAL HEALTH COUNSELOR with trials of PO - now s/p [...] . - C-collar at all times, use ROLLOUT MANAGER when OOB - Follow-up with Neurosurgery on 10/21 with repeat X-rays #Blunt abdominal trauma #Splenic laceration S/p laparotomies x2. Fascia closed 09/02 Wound vac removed by patient, but wound remains duke n/dry/intact. [place] removed 09/17. #Left hemothorax Chest tube placed [...] PDTAttending: I saw and examined Diogenes Temple ([id number]) with Christian Kelley PA-C on morning rounds [...] in conjunction with psychiatry. Fidelina Shields MD [facility] Division of Trauma, Critical Care and Acute Care Surgery Office: [phone] Pager: [phone] Christian Kelley PA-C - 09/28/2017 1:01 PM [...] he said, who, ariel? And then the MANAGER MEDICARE MARKETING helped him make a call to her. [...] and EOMs intact to exam Neck: in [place] collar Respiratory: CTA bilaterally, lungs symmetrical, equal [...] very agitated today. - EKG today with [place] QTc calculated to be 428 - optimize [...] AMS & delirium - numerous evaluations by LICENSED MENTAL HEALTH COUNSELOR with trials of PO - now s/p [...] . - C-collar at all times, use ROLLOUT MANAGER when OOB - Follow-up with Neurosurgery [...] more toda y. Chaz Hernandez MD, FACS [facility], Trauma, Critical Care and Acute Care Surgery Chaz Hernandez MD - 09/28/2017 10:13 AM PDTTrauma Staff Seen and examined this AM with team. I have concerns abotu behaviour, as he is consistently threatening RN and ancillary staff, even attempting swings. Behavior seems worse at night. I would favor increasing night time Haldol dose, and following EKGs. Chaz Hernandez MD, FACS [facility], Trauma, Critical Care and Acute Care Surgery [...] Dallin Bourgeois MD Neurosurgery PGY1 | Pager #[phone] Christian Begum PA-C - 09/27/2017 7:31 AM [...] able to have a linear conversation briefly LICENSED MENTAL HEALTH COUNSELOR requesting repeat barium swallow Current meds: I [...] incision healing , suture c/d/I Neck: in ROLLOUT MANAGER Respiratory: unlabored on room air, lungs [...] AMS & delirium - numerous evaluations by LICENSED MENTAL HEALTH COUNSELOR with trials of PO - now s/p [...] . - C-collar at all times, use ROLLOUT MANAGER when OOB - Follow-up with Neurosurgery on 10/21 with repeat X-rays #Blunt abdominal trauma #Splenic laceration S/p laparotomies x2. Fascia closed 09/02 Wound vac removed by patient, but wound remains duke n/dry/intact. [place] removed 09/17. #Left hemothorax Chest tube placed [...] CUNNINGHAM MD [facility] [address] [place] [address] Christian Kelley PA-C - 09/26/2017 6:48 AM [...] posterior scalp crani incision c/d/I Neck: in [place] collar Respiratory: unlabored on room air CV: [...] AMS & delirium - numerous evaluations by LICENSED MENTAL HEALTH COUNSELOR with trials of PO - now s/p [...] . - C-collar at all times, use ROLLOUT MANAGER when OOB - Follow-up with Neurosurgery [...] C[place] MD [facility] [address] [place] [address] Christian Kelley PA-C - 09/25/2017 7:49 AM [...] HEENT: EOMs intact to exam Neck: in ROLLOUT MANAGER brace Respiratory: unlabored on room air [...] AMS & delirium - numerous evaluations by LICENSED MENTAL HEALTH COUNSELOR with trials of PO - now s/p [...] . - C-collar at all times, use ROLLOUT MANAGER when OOB - Follow-up with Neurosurgery on 10/21 with repeat X-rays #Blunt abdominal trauma #Splenic laceration S/p laparotomies x2. Fascia closed 09/02 Wound vac removed by patient, but wound remains duke n/dry/intact. [place] removed 09/17. #Left hemothorax Chest tube placed [...] C[place] MD [facility] [address] [place] [address] Christian Kelley PA-C - 09/24/2017 11:07 AM [...] with agitation Having difficulty swallowing again - LICENSED MENTAL HEALTH COUNSELOR to re-eval and obtain barium swallow Current [...] HEENT: EOMs intact to exam Neck: in ROLLOUT MANAGER brace Respiratory: CTA bilaterally, lungs symmetrical, equal chest wall rise, no retractions CV: RRR GI: non distended, last BM 09/23 : good urine output Extremities: SCD's in place, no peripheral edema, wiggles toes and toes pink and well perfu sed Musculoskeletal: 5/5 strength in bilateral customer relations advisor (but with slightly weaker on left) , [...] PRN seroquel dose QHS for insomnia/restlessness at [facility] - Haldol 5mg q12hr [...] likely 2/2 AMS & delirium - Failed LICENSED MENTAL HEALTH COUNSELOR eval 09/19 & 09/20, made NPO & dobhoff reinserted 09/21 but pulled overnight - Per LICENSED MENTAL HEALTH COUNSELOR on 09/21, ok for therapeutic pureed with [...] . - C-collar at all times, use ROLLOUT MANAGER when OOB - Follow-up with Neurosurgery [...] [place] MD [facility] [address] [place] [address] Ginette Campos PA-C - 09/24/2017 9:31 AM [...] extremities Unable to assess drift. Motor: Machine Pan Greaser Bicep Tricep Delt R 5 5 5 5 L 4 4 4- 4- RLE moving spontaneously, unable to complete motor exam with LLE due to patient somnolence. Incision: Cranial: Clean, some serosanguinous drainage surrounding incision but none readil y expressed with palpation. No purulent drainage. Stable erythema. Impression: Diogenes Temlpe is a 67 y.o. male history of [...] further questions or concerns. Ginette Campos PA-C [facility] [address] [place] [id number] abriel Atkins stephanie Cleary, AGACNP - 09/23/2017 [...] hiscence, draining minimal serosang fluid Neck: in ROLLOUT MANAGER brace Respiratory: unlabored on room air [...] PRN seroquel dose QHS for insomnia/restlessness at [facility] - Repeat ECG 09/22 [...] likely 2/2 AMS & delirium - Failed LICENSED MENTAL HEALTH COUNSELOR eval 09/19 & 09/20, made NPO & dobhoff reinserted 09/21 but pulled overnight - Per LICENSED MENTAL HEALTH COUNSELOR on 09/21, ok for therapeutic pureed with [...] . - C-collar at all times, use ROLLOUT MANAGER when OOB - Follow-up with Neurosurgery on 10/21 with repeat X-rays #Blunt abdominal trauma #Splenic laceration S/p laparotomies x2. Fascia closed 09/02 Wound vac removed by patient, but wound remains duke n/dry/intact. [place] removed 09/17. #Left hemothorax Chest tube placed [...] dysphagia & delir ium improves Sherine Sarmiento, [facility] Pg [phone] Dallin Deshpande MD - 09/22/2017 8:03 AM [...] Dallin Bourgeois MD Neurosurgery PGY1 | Pager #[phone] [facility] - 09/22/2017 6:52 AM PDTFormatting of [...] 24hr events: - Therapeutic purees initiated by LICENSED MENTAL HEALTH COUNSELOR yesterday - Trickle feeds via Dobbhoff, pt pulled Dobbhoff yesterday evening- not replaced - HOSPICE CONSULTANT called around 2130 for new left facial droop (see separate notes), CT revealed increa se in SDH from 12 to 17mm with no change in midline shift. Exam stabilized post CT [facility] - NSG and stroke team notified [...] sluggish. Slight left facial droop Neck: in [place] collar Respiratory: unlabored on room air CV: [...] PRN seroquel dose QHS for insomnia/restlessness at [facility]- - Repeat ECG 09/22 with Q Tc WNL. - Haldol 5mg q12hr prn for severe agitation #Substance abuse, concern for Alcohol withdrawal - CIWA discontinued 09/08, not scoring. - Thiamine & folate started 09/21 #Dysphagia, risk for aspiration #Protein calorie malnutirtion - likely 2/2 AMS & delirium - Failed LICENSED MENTAL HEALTH COUNSELOR eval 09/19 & 09/20, made NPO & dobhoff reinserted 09/21 but pulled overnight - Per LICENSED MENTAL HEALTH COUNSELOR on 09/21, ok for therapeutic pureed with [...] . - C-collar at all times, use ROLLOUT MANAGER when OOB - Follow-up with Neurosurgery [...] when dysphagia & delirium improves Sherine Sarmiento, [facility] Pg [phone] Associated attestation - Nubia Nieto MD,MPH - 09/22/2017 9:39 PM PDTATTENDING PROGRES S NOTE I personally interviewed and examined the patient today with the trauma team and the nurse practitioner. I participated in the development of and agree with the assessment and plan a s outlined [facility]. Adding seroquel qHS for sleep hygiene. Nubia Nieto MD, MPH Trauma, Critical Care & Acute Care Surgery [facility] [phone] Sami Black C - 09/21/2017 10:25 PM [...] in the morning. Plan: -neuro checks; page [phone] for any decline in neurological examination -pain control -Hard C collar at all times and place ROLLOUT MANAGER prior to mobilizing OOB. Anticipated duration of Collar/ROLLOUT MANAGER is 12 weeks -repeat CT head for any new decline in neurological exam and page [phone] -NPO at midnight tonight -please hold tonight's planned dose of Lovenox -further recommendations in the morning Sami Black MD, PhD PGY-3 Resident Neurosurgery [id number] signed by Sami Black at 09/21/2017 10:50 PM [facility] - 09/21/2017 7:10 AM PDTFormatting of [...] [place] placem ent 24hr events: - Failed LICENSED MENTAL HEALTH COUNSELOR eval again yest morning, continued NPO - [...] reactive. Dobbhoff tube in place Neck: in [place] collar Respiratory: unlabored on room air CV: [...] likely 2/2 AMS & delirium - Failed LICENSED MENTAL HEALTH COUNSELOR eval 09/19 & 09/20, made NPO & dobhoff reinserted yesterday - Trickle feeds started this am at 20ml/hr, increase very slowly by 10ml every 12 hrs to go al of 75 due to hx of mesenteric hematomas and previous inability to tolerate TF - Per LICENSED MENTAL HEALTH COUNSELOR today, ok for therapeutic pureed with nectar [...] . - C-collar at all times, use ROLLOUT MANAGER when OOB - Follow-up with Neurosurgery on 10/21 with repeat X-rays #Blunt abdominal trauma #Splenic laceration S/p laparotomies x2. Fascia closed 09/02 Wound vac removed by patient, but wound remains duke n/dry/intact. [place] removed 09/17. #Left hemothorax Chest tube placed [...] & delirium [place] [phone] Associated attestation - Fidelina Shields MD - 09/21/2017 9:36 PM PDTAttending: I saw and examined Diogenes Temple ([id number]) with KESHAWN Alexander on mornin g rounds [...] enough to re-trial PO. Fidelina Shields MD [facility] Division of Trauma, Critical Care and Acute Care Surgery Office: [phone] Pager: [phone] Sherine Sarmiento AGACNP - 09/20/2017 7:41 AM [...] haldol given yesterday afternoon for agitation - LICENSED MENTAL HEALTH COUNSELOR paged to re-eval in afternoon after concern for aspiration, made NPO by LICENSED MENTAL HEALTH COUNSELOR - DARNELL SOLANO Current meds: I have [...] right pupil 3 and reactive Neck: in [place] collar Respiratory: unlabored on room air CV: [...] thick/pureed d iet. Made NPO yesterday by LICENSED MENTAL HEALTH COUNSELOR after concern for aspiration. This is likely 2/2 waxing & wan ing delirium & AMS - LICENSED MENTAL HEALTH COUNSELOR re-eval today recommend continue NPO d/t overt clinical signs of aspiration - Place Dobbhoff tube and restart feeds, slowly progress to goal - Stop TPN when tolerating tube feeds - LICENSED MENTAL HEALTH COUNSELOR will follow closely, as his AMS improves [...] . - C-collar at all times, use ROLLOUT MANAGER when OOB - Follow-up with Neurosurgery on 10/21 with repeat X-rays #Blunt abdominal trauma #Splenic laceration S/p laparotomies x2. Fascia closed 09/02 Wound vac removed by patient, but wound remains duke n/dry/intact. [place] removed 09/17. #Left hemothorax Chest tube placed [...] & delirium [place] [phone] Associated attestation - Fidelina Shields MD - 09/20/2017 9:34 PM PDTAttending: I saw and examined Diogenes Temple ([id number]) with KESHAWN Alexander on mornin g rounds [...] dispo planning when able. Fidelina Shields MD [facility] Division of Trauma, Critical Care and Acute Care Surgery Office: [phone] Pager: [phone] Mary Medrano MD,MPH - 09/19/2017 6:22 AM [...] downgraded from thin to thick liquids by LICENSED MENTAL HEALTH COUNSELOR Current meds: I have independently reviewed current [...] intact, small Right fluctuant pseudomeningocele Neck: in [place] collar Respiratory: unlabored on room air CV: [...] DHT on09/19. - Cleared for diet by LICENSED MENTAL HEALTH COUNSELOR, tolerating purees, 749 Calories yesterday - Restart Calorie count: if taking >700 again will be OK for full po diet, otherwise replac e DHT and restart TF - Stop TPN tomorrow regardless - Still considering repeat CT abdomen/pelvis #Dysphagia DHTreplaced overnight 09/07. TF held due to emesis and possible ileus, aspiration risk. DH T pulled overnight on 09/18 - LICENSED MENTAL HEALTH COUNSELOR as able Resolved or chronic issues/Plan: #BIG 3 TBI #Right synthetic cranioplasty Neurosurgery consulted. Non-operative management. Last head CT 09/12 stable. Expected pseudo meningocele. Left-sided deficits consistent with baseline. - Stat head CT for any neurologic decline #C7 bilateral lamina fractures #C6-T2 spinous process fractures Neurosurgery consulted. Non-operative management. Upright cervical X-rays completed on 09/14 . - C-collar at all times, use ROLLOUT MANAGER when OOB - Follow-up with Neurosurgery [...] M.D., M.P.H. Neurological Surgery Resident PGY-1 Pager: [phone] Associated attestation - Fidelina Shields MD - 09/19/2017 1:36 PM PDTAttending: I saw and examined Diogenes Temple ([id number]) with the residents on morning rounds 09/19/17 and agree with the assessment and plan as outlined in this note and participated in the plan aashish of care. Improving po intake, will titrate TPN. Plan to DC TPN tomorrow and transition to PO vs PO + TF depending on calorie counts. Once of restraints will begin looking for placement. Fidelina Shields MD [facility] Division of Trauma, Critical Care and Acute Care Surgery Office: [phone] Pager: [phone] Mary Medrano MD,MPH - 09/18/2017 6:17 AM [...] fascial closure, [place] placem ent 24hr events: [place] removed yesterday Small emesis overnight, nausea resolved [...] fluctuant pseudomeningocele,Dobhoff tubein p lace Neck: in [place] collar Respiratory: unlabored on room air CV: [...] appeared stable. Amylase/lipase unremarkable. CT C/A/P concer asahish for multifocal aspiration pneumonitis/pneumonia, but clinically improved. Pulled out NG on morning of 09/14, not replaced. - Continue TPN - Bowel meds via DHT, holding TF - Cleared for diet by LICENSED MENTAL HEALTH COUNSELOR, tolerating small quantities of purees - Will need repeat CT A/P within 1-2 days #Hypervolemia I&O approaching even. Appears to have been auto-diuresing. - Continue to monitor urine output - Monitor electrolytes, replete prn #Dysphagia DHTreplaced overnight 09/07. TF held due to emesis and possible ileus, aspiration risk. - LICENSED MENTAL HEALTH COUNSELOR as able #C7 bilateral lamina fractures #C6-T2 spinous process fractures Neurosurgery consulted. Non-operative management. Upright cervical X-rays completed on 09/14 . - C-collar at all times, use ROLLOUT MANAGER when OOB - Follow-up with Neurosurgery [...] by patient, but wound remains duke n/dry/intact. [place] removed 09/17. #Left hemothorax Chest tube placed [...] M.D., M.P.H. Neurological Surgery Resident PGY-1 Pager: [phone] signed by Fidelina Shields MD at 09/19/2017 3:58 PM PDT Associated attestation - Fidelina Shields MD - 09/19/2017 3:58 PM PDTAttending: I saw and examined Diogenes Temple ([id number]) with the residents on morning rounds 09/18/17 and agree with the assessment and plan as outlined in this note and participated in the plan aashish of care. Fidelina Shields MD [facility] Division of Trauma, Critical Care and Acute Care Surgery Office: [phone] Pager: [phone] Mary Medrano MD,MPH - 09/17/2017 6:26 AM [...] fluctuant pseudomeningocele,Dobhoff tubein p lace Neck: in [place] collar Respiratory: unlabored on room air CV: [...] holding TF - Cleared for diet by LICENSED MENTAL HEALTH COUNSELOR, tolerating small quantities of purees #Hypervolemia I&O approaching even. Appears to have been auto-diuresing. - Continue to monitor urine output - Monitor electrolytes, replete prn #Dysphagia DHTreplaced overnight 09/07. TF held due to emesis and possible ileus, aspiration risk. - LICENSED MENTAL HEALTH COUNSELOR as able #C7 bilateral lamina fractures #C6-T2 spinous process fractures Neurosurgery consulted. Non-operative management. Upright cervical X-rays completed on 09/14 . - C-collar at all times, use ROLLOUT MANAGER when OOB - Follow-up with Neurosurgery [...] M.D., M.P.H. Neurological Surgery Resident PGY-1 Pager: [phone] signed by Fidelina Shields MD at 09/17/2017 2:29 PM PDT Associated attestation - Fidelina Shields MD - 09/17/2017 2:29 PM PDTAttending: I saw and examined Diogenes Temple ([id number]) with the residents on morning rounds 09/17/17 [...] repeat C T abdomen/pelvis. Fidelina Shields MD [facility] Division of Trauma, Critical Care and Acute Care Surgery Office: [phone] Pager: [phone] Venita Pruitt PA-C - 09/16/2017 6:45 AM [...] HEENT: DHT in place, CARRI Neck: in [place] collar Respiratory: CTA bilaterally, lungs symmetrical, equal [...] daily - Haldol 5mg q12hr prn - LICENSED MENTAL HEALTH COUNSELOR: severe cognitive deficits - continue LICENSED MENTAL HEALTH COUNSELOR therapy #Bilious emesis #Ileus #Aspiration #Leukocytosis - bilious emesis overnight, trickle tube feeds stopped; will restart tube feeds slowly this afternoon and determine tolerance - hx of ileus during hospitalization, NG removed 09/14 - Strict NPO per LICENSED MENTAL HEALTH COUNSELOR - Bowel meds via DHT - TPN continued #Hypervolemia I&O approaching even. Appears to have been auto-diuresing. - Continue to monitor urine output - Monitor electrolytes, replete prn #Dysphagia DHTreplaced overnight 09/07/17. TF held for bilious vomiting last night - LICENSED MENTAL HEALTH COUNSELOR as able - eval from 09/13 with oropharyngeal dysphagia - strict NPO #C7 bilateral lamina fractures #C6-T2 spinous process fractures Neurosurgery consulted. Non-operative management. - C-collar at all times, use ROLLOUT MANAGER when OOB - Upright films in ROLLOUT MANAGER completed yesterday - follow up in [...] need eventual placement. Venita Pruitt PA-C [place] [phone] [facility] [place] [phone] Associated attestation - Fidelina Shields MD - 09/17/2017 3:42 PM PDTAttending: I saw and examined Diogenes Temple with Venita Pruitt PA-C on morning rounds 09/16/17 and ag ree with the assessment and plan as outlined in this note and participated in the planning o f care. Ileus precludes advancing tube feeds. Will allow po as tolerated and continue tpn. Fidelina Shields MD [facility] Division of Trauma, Critical Care and Acute Care Surgery Office: [phone] Pager: [phone] Dallin Bourgeois MD - 09/15/2017 12:06 PM [...] Mr. Temple. Dallin Bourgeois MD Neurosurgery PGY1 [id number] signed by Dallin Bourgeois MD at 09/15/2017 [...] tube in place and EOMI Neck: in [place] collar Respiratory: CTA bilaterally, lungs symmetrical, equal [...] daily - Haldol 5mg q12hr prn - LICENSED MENTAL HEALTH COUNSELOR: severe cognitive deficits - continue LICENSED MENTAL HEALTH COUNSELOR therapy #Bilious emesis #Ileus #Aspiration #Leukocytosis On [...] resolving ileus - trickle feeds per supervisor production recommendations started today - TPN consult obtained [...] emesis and possible ileus, aspiration risk. - LICENSED MENTAL HEALTH COUNSELOR as able - eval from 09/13 with oropharyngeal dysphagia - strict NPO #C7 bilateral lamina fractures #C6-T2 spinous process fractures Neurosurgery consulted. Non-operative management. - C-collar at all times, use ROLLOUT MANAGER when OOB - Upright films in ROLLOUT MANAGER completed yesterday - will notify NSG [...] alcohol withdrawal and using olanzapine and haldol. LICENSED MENTAL HEALTH COUNSELOR will reeval to day. Continue strict NPO and will start TPN. Off abx. EM CUNNINGHAM MD [facility] [address] [place] [address] Mary Medrano MD,MPH - 09/14/2017 6:39 AM [...] fluctuant pseudomeningocele,Dobhoff tubein p lace Neck: in [place] collar Respiratory: sats stable room air, unlabored, [...] emesis and possible ileus, aspiration risk. - LICENSED MENTAL HEALTH COUNSELOR as able #C7 bilateral lamina fractures #C6-T2 spinous process fractures Neurosurgery consulted. Non-operative management. - C-collar at all times, use ROLLOUT MANAGER when OOB - Upright films in ROLLOUT MANAGER when able Resolved or chronic issues/Plan: [...] M.D., M.P.H. Neurological Surgery Resident PGY-1 Pager: [phone] signed by Shlomo Bravo MD at 09/16/2017 11:14 AM PDT Associated attestation - Shlomo Bravo MD - 09/16/2017 11:14 AM PDTFormatting of this note m ight be different from the original. I saw and examined Diogenes Temple ([id number]) with the TRAUMA team on 09/14/2017. I [...] shock, initial encounter (HCC) Shlomo Bravo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 in [facility] date as October 2017. Memory: recent: [...] - Alcohol Use Disorder RECOMMENDATIONS: - CONTINUE Hhfrvbtm420 mg BID liquid formulation - CONTINUE scheduledHaloperidol [...] on a medical hold . Please see https://[facility].Colorescience/documents/view/149 - "Decision-Making Capacity Assessm ent" for a ylzp-rm-szmz guide to capacity assessments at [facility]. Or search for the document on O2 under healthcare policies. -Complete Documentation -72 Hour/Medical Hold in Epic -If additional questions or concerns may page clinical application specialist psychiatry. --Psychiatry will continue to follow. [...] Darling Steinberg, MS3 [facility] Pager [phone] signed by Ad Aponte MD at 12/05/2017 6:28 PM PDT Associated attestation - Ad Aponte MD - 12/05/2017 6:28 PM PDTPsychiatry At [facility] Note Date of services: 12/05/17 Student, Karsten [...] during the entire encounter. Ad Aponte MD Hat Braiderchlorination operator Karsten Grover - 12/04/2017 10:53 AM [...] on a medical hold . Please see https://[facility].Guess Your Songs.Mobstats/documents/view/149 - "Decision-Making Capacity Assessm ent" for a zqwm-tp-unqs guide to capacity assessments at [facility]. Or search for the document on O2 under healthcare policies. -Complete Documentation -72 Hour/Medical Hold in [facility] -If additional questions or concerns may page clinical application specialist psychiatry. --Psychiatry will continue to follow. [...] Darling Steinberg, MS3 [facility] Pager [phone] signed by Ad Aponte MD at 12/04/2017 1:37 PM PDT Associated attestation - Ad Aponte MD - 12/04/2017 1:37 PM PDTPsychiatry At [facility] Note Date of services: 12/04/17 Student, Karsten [...] recent nursi ng report. Ad Aponte MD Hat Braiderchlorination operator Farooq Rea MD - 12/03/2017 10:12 AM PDTFormattin g of this note might be different from the original. PSYCHIATRY CONSULT FOLLOW-UP NOTE Author: Farooq Rea MD Date: 12/03/17 24-HOUR EVENTS: - Diogenes was very agitated yesterday evening, pulled out PEG tube which was subsequently r eplaced - In [place] bed with restrains overnight - Minimal to [...] on a medical hold . Please see https://[facility].Colorescience/documents/view/149 - "Decision-Making Capacity Assessm ent" for a rznt-ng-xqrj guide to capacity assessments at [facility]. Or search for the document on O2 under healthcare policies. -Complete Documentation -72 Hour/Medical Hold in [facility] -Psychiatry will continue to follow. [...] PDTPsychiatry At [facility] Note Date of services: 12/03/2017 I reviewed the record and interviewed the patient. I agree with Dr. Rea's findings, formulation and recommendations. Would recommend addition of Depakene 125 mg PO BID for luiza roprotection related to underlying TBI. Please see full note for additional recommendations regarding Haldol scheduled/PRN dosing. Ad Aponte MD Hat Braiderchlorination operator Vasquez John MD - 12/01/2017 9:46 [...] he is in a hos pital in [place], [place] but does not know which one. Memory: [...] on a medical hold . Please see https://[facility].Colorescience/documents/view/149 - "Decision-Making Capacity Assessm ent" for a lklu-nt-rqnj guide to capacity assessments at [facility]. Or search for the document on O2 under healthcare policies. -Complete Documentation -72 Hour/Medical Hold in [facility] --Psychiatry will continue to follow [...] will continue to follow. Anastasia Gaspar MD Clinic Licensed Practical Nursechlorination operator Farooq Rea MD - 11/29/2017 11:40 [...] lying in be d in hospital [facility] Musculo-skeletal: strength: Not tested muscle tone: [...] on a medical hold . Please see https://[facility].Guess Your Songs.Mobstats/documents/view/149 - "Decision-Making Capacity Assessm ent" for a yeyu-ev-gsyj guide to capacity assessments at [facility]. Or search for the document on O2 under healthcare policies. -Complete Documentation -72 Hour/Medical Hold in [facility] -If additional questions or concerns may page clinical application specialist psychiatry. -Psychiatry will continue to follow [...] PDTPsychiatry At [facility] Note Date of services: 11/29/2017 I reviewed [...] is prior ity at this time. Ad Aopnte MD Hat Braiderchlorination operator Farooq Rea MD - 11/28/2017 2:19 [...] Requested to speak with Vicente Bo, his mdvrwel-yv-soe, but was u margarethle to provide phone [...] year as 2018, knows he is at [facility] Memory: recent: Poor; unable to [...] on a medical hold . Please see https://[facility].Guess Your Songs.Mobstats/documents/view/149 - "Decision-Making Capacity Assessm ent" for a vvsw-bj-nubl guide to capacity assessments at [facility]. Or search for the document on O2 under healthcare policies. -Complete Documentation -72 Hour/Medical Hold in [facility] -If additional questions or concerns may page clinical application specialist psychiatry. -Psychiatry will continue to follow [...] PDTPsychiatry At [facility] Note Date of services: 11/28/2017 I reviewed [...] prior to starting Depakene. Ad Aponte MD Hat Braiderchlorination operator Lora Bhatia, SCOTT - 11/28/2017 1:15 [...] (IE the seroquel toda y) ROSIO Castorena-SCOTT-[facility] med/psych nursing Pager [phone] signed by Lora Bhatia RN at 11/28/2017 [...] on CT head Consulted Requested By: Chaz Hernanedz MD Admission date: 08/31/2017 Hospital Day # 73 Impression/Recommendations: Diogenes Temple is a 57 y.o. 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 CT head demonstrated [...] Alvarez MD, PhD PGY-3, Internal Medicine Pager: [phone] History of Present Illness: Diogenes Temple is [...] GIBSON MD,PhD [facility] [address] [place], [place] [id number] Shlomo Rodríguez MD - 11/06/2017 5:17 AM [...] Call team 19/11 for questions: Team Pager [phone] Associated attestation - Shlomo Bravo MD - 11/06/2017 6:23 AM PDTI saw and examined Charli Temple ([id number]) with the ICU team on 11/06/2017. I agree with the assessment and plan as outlined in this note and participated in the planning of care. I have personally reviewed a ll pertinent labarotory findings, radiographs, and physiologic parameters. I personally perf ormed pertinent parts of the physical examination and personally formulated the plan with madiha MCPHERSONU team. Shlomo Bravo MD Clinic Licensed Practical Nurse Division of Trauma and Critical Care JaredamyPham - 10/29/2017 12:02 PM PDTEthics Consult Received call from Moncho on the Trauma Service regarding Mr. Love who lacks decision aniceto ng capacity and has no guardian. Referenced note by Trey Horton [facility] dated 10/23/2017 that dylan marin may [...] MEDICAL CENTER Decision Making Capacity Assessment Policy [email or web address]://[email or web address] Your [email or web address]/documents/view/149 Regarding Decision Making Capacity (per [facility] [...] does not have a legally authorized health multi care technician resentative, the health care team may contact [...] capacity a. Legally authorized healthcare sales representative raw fibers (Advance Directive) b. Patient s spouse or registered domestic partner c. Adult child who can be located d. Parent e. Adult sibling of the patient f. Adult designated by others on this list, if no one on the list objects g. Other adult relative or friend In the absence of any willing surrogate to provide input into the patients known preference s, [facility] Healthcare Surrogate Committee will make decisions. Members of this committee ma y vary, but should include one or more nursing, social work, physician and Ethics Consult Se rvice representatives [facility] Informed Consent Policy are below (Link to Informed Consent Policy https://[facility].ByeCity/documents/view/148) Pham Encarnacion M.S. Patient Advocate Specialist Pager [phone], Phone [phone] Aggie Ma MD,PhD - 10/13/2017 11:27 AM [...] Please call ID c/s pager with questions. [phone] AGGIE WORLEY MD,PhD i, Anderson Mai MD - 10/12/2017 11:17 AM PDT Diogenes Temple [id number] /Bed:07/28 INPATIENT INFECTIOUS DISEASES INITIAL CONSULT NOTE [...] and Cefepime, cultures growing Pseudomonas aeruginosa. Baljeet cleayr developed significant hematemesis this AM, prompting repeat [...] the primary team. This patient was staffed [facility] Dr. Worley, who agrees with the above assessment and plan unless otherwise documented. Thank you for the consult, we will follow along with you. ANDERSON SPIVEY MD PGY-5, Infectious Diseases Pager: [phone] Associated attestation - Aggie Worley MD,PhD - [...] to fourth dose. Please page clinical pharmacist ([phone]) or call central inpatient pharmacy ([phone]) with qu estions. Actual body weight: Weight: [...] to fourth dose. Please page clinical pharmacist ([phone]) or call central inpatient pharmacy ([phone]) with qu estions. Actual body weight: Weight: [...] June 25. This was all done in [place], [place]. Recently, he was walking drunk d [...] the wound was still draining. Dr. Stock ([facility]) plans for OR for washout , possible [...] the right parietal region, except for a [id number] wound near the right occiput. Serous drainage. [...] assessment and plan. MAGUE MENDES MD Pager #:[phone] [facility] Division of Plastic & Reconstructive Surgery Associated [...] Please re-consult if needed. ANNIE BLEVINS MD atomic physics professor of Plastic Surgery 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 CT spine shows multiple fractures with most concerning fracture at C7 lamina w ith canal intrusion. Patient being managed in C collar and ROLLOUT MANAGER. -Developed drainage from previous crani site on 09/23 and concern for possible neuro exam ch sonny. Repeat imaging was stable. Wound sutured at bedside, but now with recurrent wound disc harge. Per outside records: DOI: 02/05/17 treated at [facility] in [place], [place] s/p Right Frontotemporoparietal decompressive crainiectomy w [...] PA-C [facility] [address] [place] [address] Pg [phone] MEDICATIONS Current Facility-Administered Medications Medication acetaminophen (TYLENOL) [...] -Routine Delirium Mitigation Strategies below -Consider therapeutic flotation operator (sitter) if patient presents as an [...] -If additional questions or concerns may page clinical application specialist psychiatry. --Psychiatry will sign off at [...] August (which is when he was admitted), [place] Memory: recent: Appears to retain some of [...] to commu nicate his needs to his MANAGER MEDICARE MARKETING. Awake, alert, communicating in a low voice [...] -Routine Delirium Mitigation Strategies below -Consider therapeutic flotation operator (sitter) if patient presents as an [...] -If additional questions or concerns may page clinical application specialist psychiatry. --Psychiatry will continue to follow [...] restraints due to attempts to pull at [facility] -seen by speech, only cleared for [...] -Routine Delirium Mitigation Strategies below -Consider therapeutic flotation operator (sitter) if patient presents as an [...] any changes or concerns, please page the clinical application specialist resident. Staffed with Dr. Gaspar, the [...] formulation a nd recommendations. Anastasia Gaspar MD Clinic Licensed Practical Nursechlorination operator Espinoza Dejesus MD - 10/03/2017 8:46 [...] -Routine Delirium Mitigation Strategies below -Consider therapeutic flotation operator (sitter) if patient presents as an [...] [facility] Department [place] [phone] Associated attestation - Anastasia Gaspar MD - 10/03/2017 3:36 PM PDTPsychiatry Attending Evette parikh Date of services: 10/03/2017 I reviewed the record and interviewed the patient. I agree with Dr. Dejesus's findings, for mulation and recommendations. Anastasia Gaspar MD Clinic Licensed Practical Nursechlorination operator Vasquez John MD - 10/02/2017 10:27 [...] mittens, fair eye contact, calm Musculo-skeletal: strength: soil biology teacher hands bilateral muscle tone: Increased tone virgen [...] -Routine Delirium Mitigation Strategies below -Consider therapeutic flotation operator (sitter) if patient presents as an [...] to followat this time. Staffed/Seen with Dr. Gaspra the psychiatry attending, who agrees with the [...] formu lation and recommendations. Anastasia Gaspar MD Clinic Licensed Practical Nursechlorination operator Vasquez John MD - 10/01/2017 11:42 [...] -Routine Delirium Mitigation Strategies below -Consider therapeutic flotation operator (sitter) if patient presents as an [...] formu lation and recommendations. Anastasia Gaspar MD Clinic Licensed Practical Nursechlorination operator Espinoza Dejesus MD - 09/30/2017 8:51 [...] -Routine Delirium Mitigation Strategies below -Consider therapeutic flotation operator (sitter) if patient presents as an [...] [facility] Department [place]iatry Pg [phone] Associated attestation - Anastasia Gaspar MD - 09/30/2017 4:28 PM PDTPsychiatry Attending No jl Date of services: 09/30/2017 I reviewed the record and interviewed the patient. I agree with Dr. Dejesus's findings, for mulation and recommendations. Anastasia Gaspar MD Clinic Licensed Practical Nursechlorination operator Vasquez John MD - 09/27/2017 11:59 [...] agitation, pulling lines, impulsive behaviors on HD#20. [place] likely Delirium from multiple etiologies (head b [...] -Routine Delirium Mitigation Strategies below -Consider therapeutic flotation operator (sitter) if patient presents as an [...] regarding this patient. VASQUEZ JOHN MD Psychiatry, [id number] signed by Anastasia Gaspar MD at 09/27/2017 4:32 PM PDT Associated attestation - Anastasia Gaspar MD - 09/27/2017 4:32 PM PDTPsychiatry Attending No te Date of services: 09/27/2017 I reviewed the record and interviewed the patient. I agree with Dr. John' findings, formu lation and recommendations. Anastasia Gaspar MD Clinic Licensed Practical Nursechlorination operator Fernando Li PA - 09/27/2017 8:41 [...] - 1.30 mg/dL 0.48 (L) EGFR - UGANDAN Latest Ref Range: >60 mL/min >60 EGFR NON -UGANDAN Latest Ref Range: >60 mL/min >60 GLUCOSE, [...] CTH revealed prior large crani with synthetic environmental web crawler nioplasty and significant encephalomalacia with extraaxial collection with layering acute bl ood products. CT spine shows multiple fractures with most concerning fracture at C7 lamina w ith canal intrusion. Patient being managed in C collar and ROLLOUT MANAGER. -Developed drainage from previous crani site on 09/23 and concern for possible neuro exam damaris dennis. Repeat imaging stable. -Continued care per Primary Team- Trauma Service -Neurosurgery Service following. Monitor wound and exam. -Nylon suture due out in 2 weeks-10/09/17. -Continue Cervical Collar in bed and ROLLOUT MANAGER when OOB. -Appreciate primary team obtaining outside records. Please obtain outside imaging previous TBI, Crani and most recent cranial imaging for comparison. -Patient has FU appt in [facility] Neurosurgery clinic on 10/21/17 at 10:00 am repeat imaging: Merle amezquita X-ray AP/lateral prior. FERNANDO LI PA-C [facility] [address] [place] [address] Pg [phone] MEDICATIONS Current Facility-Administered Medications Medication bacitracin-polymyxin B [...] this note might be different from the [facility]. NEUROSURGERY INPATIENT PROGRESS NOTE Hospital Day: [...] - 1.30 mg/dL 0.47 (L) EGFR - UGANDAN Latest Ref Range: >60 mL/min >60 EGFR NON -UGANDAN Latest Ref Range: >60 mL/min >60 GLUCOSE, [...] Patient being managed in C collar and ROLLOUT MANAGER. -Developed drainage from previous crani site on 09/23 and concern for possible neuro exam damaris dennis. Repeat imaging stable. -Continued care per Primary Team- Trauma Service -Neurosurgery Service following. Monitor wound and exam. -Nylon suture due out in 2 weeks-10/09/17. -Continue Cervical Collar in bed and ROLLOUT MANAGER when OOB. -Appreciate primary team obtaining outside records. Please obtain outside imaging previous TBI, Crani and most recent cranial imaging for comparison. -Patient has FU appt in [facility] Neurosurgery clinic on 10/21/17 at 10:00 am repeat imaging: Merle amezquita X-ray AP/lateral prior. CAITIE SCHULTZ-C [facility] [address] [address] [facility] [place] [address] Pg [phone] MEDICATIONS Current Facility-Administered Medications Medication bacitracin-polymyxin B [...] Haldol IV BID + 5mg IV PRN environmental issues instructor SUBJECTIVE: Seen this morning in his room [...] agitation, pulling lines, impulsive behaviors on HD#20. [place] likely De lirium from multiple etiologies (head [...] -Routine Delirium Mitigation Strategies below -Consider therapeutic flotation operator (sitter) if patient presents as an [...] [facility] Department [place]ry [place]g [phone] Associated attestation - Anastasia Gaspar MD - 09/26/2017 3:49 PM PDTPsychiatry Attending No jl Date of services: 09/26/2017 I reviewed the record and interviewed the patient. I agree with Dr. Dejesus's findings, for mulation and recommendations. Anastasia Gaspar MD Clinic Licensed Practical Nursechlorination operator Kristen Spencer MD - 09/25/2017 3:16 [...] -Routine Delirium Mitigation Strategies below -Consider therapeutic flotation operator (sitter) if patient presents as an [...] - 1.30 mg/dL 0.47 (L) EGFR - UGANDAN Latest Ref Range: >60 mL/min >60 EGFR NON -UGANDAN Latest Ref Range: >60 mL/min >60 GLUCOSE, [...] K/cu mm 0.00 General: 67 y/o in ROLLOUT MANAGER brace male in NAD Wound Right [...] CTH revealed prior large crani with synthetic environmental web crawler nioplasty and significant encephalomalacia with extraaxial collection with layering acute bl ood products. CT spine shows multiple fractures with most concerning fracture at C7 lamina w ith canal intrusion. Patient being managed in C collar and ROLLOUT MANAGER. -Developed drainage from previous crani site on 09/23 and concern for possible neuro exam damaris dennis. -Continued care per Primary Team- Trauma Service -Neurosurgery Service following. Monitor wound and exam. -Continue dressing and wrap for now. Will take down and re-eval tomorrow. -Nylon suture due out in 2 weeks. -Continue Cervical Collar in bed and ROLLOUT MANAGER when OOB. -Please obtain outside records for previous TBI, Crani and most recent cranial imaging for comparison. CAITIE SCHULTZ-Merle [facility] [address] [place] [address] Pg [phone] MEDICATIONS Current Facility-Administered Medications Medication bacitracin-polymyxin B [...] -Routine Delirium Mitigation Strategies below -Consider therapeutic flotation operator (sitter) if patient presents as an [...] formulation a nd recommendations. Anastasia Gaspar MD Clinic Licensed Practical Nursechlorination operator Karlee Lynch MD - 09/21/2017 9:49 [...] evening), worse wea kness on the left. HOSPICE CONSULTANT called, sent for CT hea which demonstrated [...] Spontaneously and strongly antigravity RUE/BLE. L hand customer relations advisor 4/5, R 5/5. LIUE drift s to [...] mm since 09/12). Exam improving according to HOSPICE CONSULTANT RN and bedside RN after return from [...] team will see tomorrow morning. Please page #[phone] with any questions or concerns. This patient has been staffed with , attending physician, who agrees with the abov e assessment and plan. Karlee Lynch MD Neurology PGY-3 Pager #[phone] Associated attestation - Sherine Becker MD - [...] agit ation. He has been to [facility] at least twice, both times of [...] per outside records. Her taxonomy is neurosurgery research director when she is Googled. He has no [...] alcohol use. SOCIAL HISTORY: [facility] part of [facility]. Did not ask further 2/2 pt's increasing agitatio n. Per chart review, he had no children. 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 Likely, this drug was started for likely [...] Delirium Mitigation Strategies below - Consider therapeutic flotation operator (sitter) if patient presents as an [...] the attending psychiatrist on the consult se [facility], who agrees with the assessment and plan. Kari DUMONT Associated attestation - Filemon Mliler MD - 09/20/2017 5:32 PM PDTA student [...] - 1.30 mg/dL 0.53 (L) EGFR - UGANDAN Latest Ref Range: >60 mL/min >60 EGFR NON -UGANDAN Latest Ref Range: >60 mL/min >60 GLUCOSE, [...] mm 0.00 CT HEAD WO CONTRAST Order: [id number] Performed: 09/12/2017 04:52 Status: Final result Visible [...] 09/12/17 06:48 General: 67 y/o male in ROLLOUT MANAGER with NG tube NAD Neuro: Mildly somnolent, oriented x 3, L>R pupil size L pupil 5mm NR, R pupil reactive-, EO NE, face symmetric. Following simple commands with some [...] C collar at all times and place ROLLOUT MANAGER prior to mobilizing OOB. Anticipated duration of Collar/ROLLOUT MANAGER is 12 weeks. -Obtain upright X-rays C spine AP/Lateral when able -Will arrange outpatient FU in [facility] Neurosurgery Spine clinic for 6 weeks post injury, will repeat X-rays prior. [facility] [place] . FERNANDO LI PA-C [facility] [address] [place] [address] Pg [phone] MEDICATIONS Current Facility-Administered Medications Medication acetaminophen (TYLENOL) [...] 0815) O2 Delivery Device: Nasal cannula (09/09/17 0706) 24 Hour Vital Min/Max: Systolic (24hrs), [...] - 1.30 mg/dL 0.42 (L) EGFR - UGANDAN Latest Ref Range: >60 mL/min >60 EGFR NON -UGANDAN Latest Ref Range: >60 mL/min >60 GLUCOSE, [...] C collar at all times and place ROLLOUT MANAGER prior to mobilizing OOB. Anticipated duration of Collar/ROLLOUT MANAGER is 12 weeks. -Obtain upright X-rays C spine AP/Lateral when able -Will arrange outpatient FU in [facility] Neurosurgery Spine clinic for 6 weeks post injury, will repeat X-rays prior. [facility] [place] . CAITIE SCHULTZ-Merle [facility] [address] [place] [address] Pg [phone] MEDICATIONS Current Facility-Administered Medications Medication acetaminophen (TYLENOL) [...] to fourth dose. Please page clinical pharmacist ([phone]) or call central inpatient pharmacy ([phone]) with qu estions. Actual body weight: Weight: [...] for which he was t [facility]. He is intubated and does not [...] the Neurosurgery On-call pager with questions at [phone] NUBIA DALE MD [address] [place] [address] Associated attestation - Magdiel Stock [...] days for seizure prophylaxis. Magdiel Stock MD [facility] Department of Neurological Surgery [facility] Jeffery Kulkarni MD - 08/31/2017 7:15 [...] is . The orthopaedics consult pager is #[phone], please call with questions. Thank you very much for the opportunity to consult on patient Diogenes Temple. If you have any questions, please feel free to contact us. JEFFERY KULKARNI MD Pager: [phone] [facility] Department of Orthopaedics & Rehabilitation [address] Mail Code: OP31 [place] [address] documented in this en counter ED Notes [...] spinous process of cervical vertebra, initial encounter ([facility]) T79.4XXA Traumatic hemorrhagic shock, initial encounter ([facility]) PLAN, DISPOSITION AND FOLLOW-UP: Admit TICU I supervised and was present for oconnor portions of the following procedure(s): ANNAMARIA Veloz MD [facility] Emergency Medicine New Prescriptions No medications on [...] Temple ([birth year]) Family Contact/Emergency Contact Information: Magali [phone] Contacted by social work? yes Date/Time: 08/31/17, 5:20p Transferring Hospital: [facility] Any pertinent information from the transferring hospital: Girlfriend w/ pt at bedside and i s en route per azra Barnard RN Pt arrival time and condition[facility] Needs: Pt's gf reports that pt has a brother (Boo) who lives on the [facility] and sister that lives in [place], who she is not sure how to [...] Fio2 Temp: 99.3 GF in route Magali [facility]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 PM PDT [...] OF | [address] | [place], [place] | | | CARDIOLOGY | [address] | [address] | | + + + + + [...] [facility] | [address] | [place] [address] | | | ELIN, CORE | PARK [...] | | | Interpretation By: | | [place] | | | | Abel [place], [...] | + + + + + | [facility] - | [address] | [place] [address] | | | [place] | | | [...] DEPT OF | [address] | [place], [place] | | | CARDIOLOGY | [address] | [address] | | + + + + + [...] + + + + + | [facility] | [address] | [place] [address] | | | SERVICES, CORE | PARK [...] + | [facility] - | [address] | [place] [address] | | | [place] | | | [...] CENTER LABORATORY | [address] | [place] [address] | | | NATALEE WORTHINGTON | VILMA [...] + + + + + | [facility] | [address] | [place] [address] | | | SERVICES, CORE | VILMA [...] CENTER LABORATORY | [address] | [place] [address] | | | SERVICES, CORE | PARK [...] | | | LABORATORY | | | U[facility]AN | | | SERVICES, | | | [...] + + + + + | [facility] | [address] | [place] [address] | | | NATALEE WORTHINGTON | VILMA [...] | + + + + + | [facility] | [address] | [place] [address] | | | NATALEE WORTHINGTON | VILMA [...] + + + + + | [facility] | [address] | [place] [address] | | | SERVICES, CORE | VILMA [...] | | | LABORATORY | | | [facility]AN | | | SERVICES, | | | [...] CENTER LABORATORY | [address] | [place] [address] | | | SERVICES, CORE | [address] | | | + + + + + 12 LEAD ECG (11/10/2017 10:59 AM PDT) + + + + + + | Component | Value | Ref Range | Performed | Pathologist | | | | | At | Signature | + + + + + + | VENTRICULAR | 58 | bpm | [facility] DEPT | | | RATE [...] GE[facility] OF | [address] | [place], [place] | | | CARDIOLOGY | [address] | [address] | | + + + + + [...] + + + + + | [facility] | [address] | [place] [address] | | | SERVICES, CORE | VILMA [...] | | | LABORATORY | | | U[facility]ANDAN | | | SERVICES, | | | [...] [facility] | [address] | [place] [address] | | | SERVICES, CORE | VILMA [...] [facility] | [address] | [place] [address] | | | SERVICES, CORE | [address] [...] | | | LABORATORY | | | U[facility]ANDAN | | | SERVICES, | | | [...] the MDRD equation recommended by the | [facility] | | National Kidney Disease Education Program. [...] [facility] | [address] | [place] [address] | | | NATALEE WORTHINGTON | PARK [...] [facility] | [address] | [place] [address] | | | SERVICES, NATALEE | VILMA [...] | | | LABORATORY | | | UGANDAN | | | SERVICES, | | | [...] + + + | [facility] | [address] | [place] [address] | | | SERVICES, NATALEE | VILMA [...] DEPT OF | [address] | [place], [place] | | | CARDIOLOGY | [address] | [address] | | + + + + + [...] DEPT OF | [address] | [place], [place] | | | CARDIOLOGY | [address] | [address] | | + + + + + [...] | | | LABORATORY | | | UGANDAN | | | SERVICES, | | | [...] + + + + + | [facility] | [address] | [place] [address] | | | SERVICES, CORE | PARK [...] + + | [facility] | [address] | [place] [address] | | | SERVICES, CORE | PARK [...] + + + + | PRODUCT | [id number] | | [facility] | | | UNIT [...] + + + + | EXPIRATION | [id number] | | [facility] | | | DATE [...] + + + + | BLOOD | [id number] | | [facility] | | | PRODUCT [...] + + + + + | [facility] | [address] | [place] [address] | | | SERVICES, | [address] [...] + + + + | PRODUCT | [id number] | | [facility] | | | UNIT [...] + + + + | EXPIRATION | [id number] | | [facility] | | | DATE [...] + + + + | BLOOD | [id number] | | [facility] | | | PRODUCT [...] + + + + + | [facility] | [address] | [place] [address] | | | SERVICES, | [address] [...] [facility] | [address] | [place] [address] | | | NATALEE WORTHINGTON | VILMA [...] CENTER LABORATORY | [address] | [place] [address] | | | SERVICES, NATALEE | PARK [...] | | | LABORATORY | | | UG[facility]AN | | | SERVICES, | | | [...] | + + + + + | [facility] | [address] | [place] [address] | | | SERVICES, CORE | [address] | | | + + + + + OPERATION RECORD (11/06/2017 12:27 AM PDT) + + | Procedure Note | + + | Magdiel Stock MD - 11/06/2017 12:27 AM PDT Date of Service: 11/05/2017 Attending | | Surgeon: Magdiel Stock MD Web Application Dev Specialist(s): Rg Aiken MD | | Preoperative Diagnoses: [...] his head was placed in a horseshoe knitting machine fixer head with his C-collar still | | [...] the incision down to the cranium. Once ewiiaapaayp | | skull was reached circumferentially around the prior incision, a #1 Austin was used | | to subperiosteally dissect [...] note for this encounter.Sonal Nunez, | | [facility] [id number] [facility], [place] | | [id number] Orina, JYaakov/TAHIRLDD: 11/05/2017 20:38:01DT: 11/06/2017 | | 00:27:33Job #: [id number] | |HATTIE/DUC | | | | | | /[id number] | + + CT HEAD WO CONTRAST [...] Surgeon: Magdiel | | | MD Dayami Web Application Dev Specialist: Rg Aiken MD Pre-op Diagnosis: | | [...] PGY-4 Neurological Surgery Pager | | | [phone] | | + + + CAPILLARY BLOOD [...] [facility] | [address] | [place], [place] | | | [place] POINT OF CARE | [address] | [address] | | | TESTS | | | [...] [facility] | [address] | [place], [place] | | | GLORIA GENAO OF CARE | [address] | [address] | | | TESTS | | | [...] Note | + + | Service Account, Hamilton Thorne In Interface - 11/05/2017 11:31 AM PDT [...] [facility] | [address] | [place] [address] | | | SERVICES, NATALEE | VILMA [...] + + + + + | [facility] | [address] | [place] [address] | | | SERVICES, CORE | V[address] [...] | | | LABORATORY | | | [facility] | | | SERVICES, | | | [...] [facility] | [address] | [place] [address] | | | SERVICES, CORE | PARK [...] CENTER LABORATORY | [address] | [place] [address] | | | SERVICES, [facility] | [address] | | | + [...] + + + + | PRODUCT | [id number] | | [facility] | | | UNIT [...] + + + + | EXPIRATION | [id number] | | [facility] | | | DATE [...] + + + + | BLOOD | [id number] | | [facility] | | | PRODUCT [...] | + + + + + | [facility] | [address] | [place] [address] | | | SERVICES, | [address] [...] + + + + | PRODUCT | [id number] | | [facility] | | | UNIT [...] + + + + | EXPIRATION | [id number] | | [facility] | | | DATE [...] + + + + | BLOOD | [id number] | | [facility] | | | PRODUCT [...] + + + + + | [facility] | [address] | [place] [address] | | | SERVICES, | [address] [...] [facility] | [address] | [place] [address] | | | SERVICES, CORE [...] [facility] | [address] | [place] [address] | | | SERVICES, | [address] [...] [facility] | [address] | [place] [address] | | | SERVICES, | [address] [...] + + + + + | [facility] | [address] | [place] [address] | | | SERVICES, CORE | PARK [...] DEPT OF | [address] | [place], [place] | | | CARDIOLOGY | [address] | [address] | | + + + + + [...] [facility] | [address] | [place] [address] | | | SERVICES, CORE | VILMA [...] [facility]ENTER [facility] | [address] | [place] [address] | | | NATALEE WORTHINGTON | PARK [...] + | [facility] - | [address] | [place] [address] | | | [facility] | | | | + + + [...] [facility] | [address] | [place] [address] | | | NATALEE WORTHINGTON | PARK [...] + + + + + | [facility] | [address] | [place] [address] | | | SERVICES, CORE | VILMA [...] | | | LABORATORY | | | UGANDAN | | | SERVICES, | | | [...] [facility] | [address] | [place] [address] | | | SERVICES, CORE | PARK [...] [facility] | [address] | [place] [address] | | | SERVICES, CORE | PARK [...] | Reference range change effective 12/11/16. | [facility] | | | LABORATORY | | | NATALEE WORTHINGTON | + + + + + + + + | Performing | Address | City/State/Zipcode | Phone Number | | Organization | | | | + + + + + | [facility] | [address] | [place] [address] | | | NATALEE WORTHINGTON | [address] [...] | | | LABORATORY | | | UGANDAN | | | SERVICES, | | | [...] + + + + + | [facility] | [address] | [place] [address] | | | SERVICES, CORE | VILMA [...] + + + + + | [facility] | [address] | [place] [address] | | | SERVICES, CORE | PARK [...] | | | LABORATORY | | | UGANDAN | | | SERVICES, | | | [...] [facility] | [address] | [place] [address] | | | SERVICES, CORE | VILMA [...] DEPT OF | [address] | [place], [place] | | | CARDIOLOGY | [address] | [address] | | + + + + + [...] + + + + + | [facility] | [address] | [place] [address] | | | SERVICES, CORE | VILMA [...] | | | LABORATORY | | | UGANDAN | | | SERVICES, | | | [...] [facility]ENTER [facility] | [address] | [place] [address] | | | SERVICES, CORE | VILMA [...] Note | + + | Service Account, [employer] In Interface - 10/31/2017 8:22 PM [...] OF | [address] | [place], [place] | | | CARDIOLOGY | [address] | [address] | | + + + + + [...] | | | LABORATORY | | | UGANDAN | | | SERVICES, | | | [...] the MDRD equation recommended by the | [facility] | | National Kidney Disease Education Program. [...] [facility] | [address] | [place] [address] | | | SERVICES, CORE | PARK [...] [facility] | [address] | [place] [address] | | | SERVICES, CORE | PARK [...] - [facility] | [address] | [place], [place] | | | [facility]ARE | [address] | [address] | | | TESTS | | | [...] [facility] | [address] | [place] [address] | | | SERVICES, CORE | PARK [...] | | | LABORATORY | | | UGANDAN | | | SERVICES, | | | [...] | [facility] | [address] | [place] [address] | | | NATALEE WORTHINGTON | [address] [...] Note | + + | Service Account, Hamilton Thorne In Interface - 10/29/2017 12:13 PM PDT [...] [facility] | [address] | [place], [place] | | | [facility]ARE | [address] | [address] | | | TESTS | | | [...] + + + + + | [facility] | [address] | [place] [address] | | | SERVICES, CORE | PARK [...] | | | LABORATORY | | | UGANDAN | | | SERVICES, | | | [...] [facility] | [address] | [place] [address] | | | SERVICES, CORE | VILMA [...] [facility] | [address] | [place], [place] | | | GLORIA GENAO OF CARE | [address] | [address] | | | TESTS | | | [...] DEPT OF | [address] | [place], [place] | | | CARDIOLOGY | [facility] | [address] | | + + + + + [...] [facility] | [address] | [place], [place] | | | [facility] CARE | [address] | [address] | | | TESTS | | | [...] [facility] | [address] | [place], [place] | | | GLORIA GENAO OF [employer] | [facility] | [address] | | | TESTS | | | [...] [facility] LAB[facility] | [address] | [place] [address] | | | NATALEE WORTHINGTON | [address] [...] + | [facility] - | [address] | [place] [address] | | | [facility] | | | | + + + [...] [facility] | [address] | [place] [address] | | | NATALEE WORTHINGTON | VILMA [...] + + + + + | [facility] | [address] | [place] [address] | | | SERVICES, CORE | PARK [...] [facility] | [address] | [place] [address] | | | SERVICES, CORE | PARK [...] | | | LABORATORY | | | UGANDAN | | | SERVICES, | | | [...] the MDRD equation recommended by the | [facility] | | National Kidney Disease Education Program. [...] | [facility] | [address] | [place] [address] | | | NATALEE WORTHINGTON | [address] [...] CENTER LAB[facility]ATORY | [address] | [place] [address] | | | SERVICESNATALEE | [address] [...] [facility] | [address] | [place], [place] | | | GLORIA GENAO OF [employer] | [facility] | [address] | | | TESTS | | | [...] [facility] | [address] | [place], [place] | | | [facility]INT OF CARE | [address] | [address] | | | TESTS | | | [...] Note | + + | Service Account, [employer] In Interface - 10/28/2017 9:21 AM [...] At | + + + | EXAM: AL CHEST PICC LINE CHECK HISTORY: picc done [...] Interface - 10/27/2017 6:29 PM PDT EXAM: AL CHEST | | PICC LINE CHECK HISTORY: [...] correct | | | patient, procedure, equipment, learning support resource room teacher and site/side marked as | | | [...] vein. Catheter lot number: | | | [id number] with a length of 55 cm was [...] [facility] | [address] | [place], [place] | | | GLORIA GENAO OF [facility] | [address] | [address] | | | TESTS | | | [...] DEPT OF | [address] | [place], [place] | | | CARDIOLOGY | [address] | [address] | | + + + + + [...] [facility] | [address] | [place], [place] | | | GL[facility] GE[facility]O OF CARE | [address] | [address] | | | TESTS | | | [...] [facility] | [address] | [place] [address] | | | NATALEE WORTHINGTON | [address] [...] | | | LABORATORY | | | UGANDAN | | | SERVICES, | | | [...] + + + + + | [facility] | [address] | [place] [address] | | | SERVICES, CORE | VILMA [...] [facility] | [address] | [place], [place] | | | GLORIA GENAO OF [employer] | [facility] | [address] | | | TESTS | | | [...] [facility] | [address] | [place], [place] | | | GLORIA GENAO OF CARE | [facility] | [address] | | | TESTS | | | [...] [facility] | [address] | [place], [place] | | | GLORIA GENAO OF CARE | [facility] | [address] | | | TESTS | | | [...] [facility] | [address] | [place] [address] | | | SERVICES, CORE | PARK [...] | | | LABORATORY | | | UGANDAN | | | SERVICES, | | | [...] + + + + + | [facility] | [address] | [place] [address] | | | NATALEE WORTHINGTON | [address] [...] + + + | [facility] | [address] | [place], [place] | | | [place] OF [facility] | [address] | [address] | | | TESTS | | | [...] | | | LABORATORY | | | UGANDAN | | | SERVICES, | | | [...] CENTER LAB[facility]ORY | [address] | [place] [address] | | | SERVICES, CORE | VILMA [...] 87 | 70 - 99 mg/dL | [facility] - | | | [place], | | [...] [facility] | [address] | [place], [place] | | | GLORIA GENAO OF CARE | [address] | [address] | | | TESTS | | | [...] + + + + + + | ANAL ILIA[facility]HALIM[facility] | 439 | ms | [facility] [...] DEPT OF | [address] | [place], [place] | | | CARDIOLOGY | [address] | [address] | | + + + + + [...] [facility] | [address] | [place], [place] | | | [place] OF [facility] | [address] | [address] | | | TESTS | | | [...] DEPT OF | [address] | [place], [place] | | | CARDIOLOGY | [address] | [address] | | + + + + + [...] + + + + + | [facility] | [address] | [place] [address] | | | SERVICES, CORE | VILMA [...] + | [facility] - | [address] | [place] [address] | | | [place] | | | | + + + [...] + + + + + | [facility] | [address] | [place] [address] | | | SERVICES, CORE | VILMA [...] [facility] | [address] | [place] [address] | | | SERVICES, CORE | VILMA [...] [facility] | [address] | [place] [address] | | | NATALEE WORTHINGTON | [address] [...] [facility] | [address] | [place] [address] | | | SERVICES, CORE | PARK [...] + + + + + | [facility] | [address] | [place] [address] | | | SERVICES, CORE | VILMA [...] [facility] | [address] | [place] [address] | | | SERVICES, CORE | PARK [...] [facility] | [address] | [place] [address] | | | SERVICES, CORE | PARK [...] [facility] | [address] | [place] [address] | | | SERVICES, CORE | PARK [...] [facility] | [address] | [place] [address] | | | SERVICES, CORE | PARK [...] [facility] | [address] | [place] [address] | | | SERVICES, CORE | PARK [...] | | | LABORATORY | | | UGANDAN | | | SERVICES, | | | [...] + + + + + | [facility] | [address] | [place] [address] | | | ELIN, NATALEE | [address] [...] | | | correct patient, procedure, equipment, learning support resource room teacher and site/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 Catheter lot number: [id number] with a length of 55 | | [...] At | + + + | EXAM: AL CHEST 1 VIEW HISTORY: PICC placed-pt ready. [...] Interface - 10/24/2017 3:43 PM PDT EXAM: AL CHEST 1 | | VIEW HISTORY: PICC [...] + + | [facility] | [address] [facility] | [place], [place] | | | [place] OF [facility] | [address] | [address] | | | TESTS | | | [...] to remain No changes to abx plan Karsetn Kelly MD | | | Surgical Critical Care, PGY7 Pager: [phone] | | + + + CAPILLARY BLOOD [...] [facility] | [address] | [place], [place] | | | [facility]ARE | [address] | [address] | | | TESTS | | | [...] [facility] | [address] | [place], [place] | | | [facility]ARE | [address] | [address] | | | TESTS | | | [...] | | | LABORATORY | | | UGANDAN | | | SERVICES, | | | [...] | + + + + + | [facility] | [address] | [place] [address] | | | NATALEE WORTHINGTON | PARK [...] [facility] | [address] | [place] [address] | | | SERVICES, CORE | PARK [...] [facility] | [address] | [place], [place] | | | [facility] [facility] CARE | [address] | [address] | | | TESTS | | | [...] + + + + + | [facility] | [address] | [place] [address] | | | SERVICES, CORE | VILMA [...] | | | LABORATORY | | | UGANDAN | | | SERVICES, | | | [...] + + + + + | [facility] | [address] | [place] [address] | | | SERVICES, CORE | VILMA [...] DEPT OF | [address] | [place], [place] | | | CARDIOLOGY | [address] | [address] | | + + + + + IR GASTROSTOMY TUBE EXCHANGE (10/22/2017 2:42 PM PDT) + + | Specimen | + + | | + + + + + | Narrative | Performed At | + + + | Procedure: Gastrostomy tube exchange Primary attending | [facility] | | client application support specialist: Shade Nix M.D. Preoperative diagnosis: | RADIOLOGY VOICE | | Malfunctioning Gastrostomy tube Postoperative diagnosis: Same | RECOGNITION | | Operations: Operation 1. Removal of existing Gastrostomy tube | | | over a guide wire Operation 2. Placement of 24 Mauritanian GABRIEL | | | gastrostomy over guide [...] a stiff glide wire the new 24 Mauritanian gastrostomy tube was | | | inserted. [...] Procedure: | | Gastrostomy tube exchangePrimary attending client application support specialist: Shade Nix, | | BrynPreoperative diagnosis: Malfunctioning Gastrostomy tubePostoperative diagnosis: | | SameOperations:Operation 1. Removal of existing Gastrostomy tube over a guide | | wireOperation 2. Placement of 24 Mauritanian GABRIEL gastrostomy over guide wireNo sedation was [...] glide wire the | | new 24 Mauritanian gastrostomy tube was inserted. The position of [...] stiff g lide wire the new 24 Mauritanian | |gastrostomy tube was inserted. The position [...] | Address | City[facility]State[facility] | Phone Number | | Organization | [...] Note | + + | Service Account, Hamilton Thorne In Interface - 10/22/2017 10:34 AM PDT [...] DEPT OF | [address] | [place], [place] | | | CARDIOLOGY | [address] | [address] | | + + + + + [...] | [facility] | [address] | [place] [address] | | | SERVICES, NATALEE | [address]IL[address] [...] | | | LABORATORY | | | UGANDAN | | | SERVICES, | | | [...] + + + + + | [facility] | [address] | [place] [address] | | | SERVICES, CORE | PARK [...] OF | [address] | [place], [place] | | | CARDIOLOGY | [address] | [address] | | + + + + + [...] | | | LABORATORY | | | UGANDAN | | | SERVICES, | | | [...] + + + + + | [facility] | [address] | [place] [address] | | | SERVICES, CORE | PARK [...] CENTER LABORATORY | [address] | [place] [address] | | | SERVICES, CORE | [address] | | | + + + + + 12 LEAD ECG (10/19/2017 12:23 PM PDT) + + + + + + | Component | Value | Ref Range | Performed | Pathologist | | | | | At | Signature | + + + + + + | VENTRICULAR | 53 | bpm | [facility] | | | RATE [...] + + | [facility]PT OF | [address] | [place], [place] | | | CARDIOLOGY | [address] | [address] | | + + + + + [...] + + + + + | [facility] | [address] | [place] [address] | | | SERVICES, CORE | VILMA [...] | | | LABORATORY | | | UGANDAN | | | SERVICES, | | | [...] CENTER LAB[facility]ORY | [address] | [place] [address] | | | SERVICES, CORE | VILMA [...] DEPT OF | [address] | [place], [place] | | | CARDIOLOGY | [address] | [address] | | + + + + + [...] | | | LABORATORY | | | UGANDAN | | | SERVICES, | | | [...] [facility] | [address] | [place] [address] | | | SERVICES, CORE | PARK [...] [facility] | [address] | [place] [address] | | | SERVICES, CORE | VILMA [...] OF | [address] | [place], [place] | | | CARDIOLOGY | [address] | [address] | | + + + + + [...] | | | LABORATORY | | | UGANDAN | | | SERVICES, | | | [...] [facility] | [address] | [place] [address] | | | SERVICES, CORE | PARK [...] | + + + + + | [facility] | [address] | [place] [address] | | | SERVICES, CORE | VILMA [...] OF | [address] | [place], [place] | | | CARDIOLOGY | [address] | [address] | | + + + + + [...] + + + | [facility] | [address] | [place], [place] | | | GLORIA GENAO OF CARE | [address] | [address] | | | TESTS | | | [...] [facility] | [address] | [place] [address] | | | NATALEE WORTHINGTON | VILMA [...] - [facility] | [address] | [place], [place] | | | [place] OF [facility] | [address] | [address] | | | TESTS | | | [...] DEPT OF | [address] | [place], [place] | | | CARDIOLOGY | [address] | [address] | | + + + + + [...] CENTER LAB[facility]ATORY | [address] | [place] [address] | | | NATALEE WORTHINGTON | [address]ILMA [...] | | | LABORATORY | | | UGANDAN | | | SERVICES, | | | [...] + + + + + | [facility] | [address] | [place] [address] | | | NATALEE WORTHINGTON | VILMA [...] CENTER LAB[facility]ATORY | [address] | [place] [address] | | | SERVICES, NATALEE | PARK [...] [facility] | [address] | [place], [place] | | | [facility] POINT OF CARE | [address] | [address] | | | TESTS | | | [...] - [facility] | [address] | [place], [place] | | | [facility] POINT OF CARE | [address] | [address] | | | TESTS | | | [...] CENTER LAB[facility]ATORY | [address] | [place] [address] | | | NATALEE WORTHINGTON | VILMA [...] | | | LABORATORY | | | UGANDAN | | | SERVICES, | | | [...] + + + + + | [facility] | [address] | [place] [address] | | | SERVICES, CORE | [address] | | | + + + + + OPERATION RECORD (10/12/2017 8:50 PM PDT) + + | Procedure Note | + + | Pilar Cotto MD - 10/12/2017 8:50 PM PDT Date of Service: 10/12/2017 | | Attending Surgeon: Chaz Hernandez MD Web Application Dev Specialist(s): Randell Dixon M.D., | | fellow. George [...] saline. We then | | placed a 19-Mauritanian drain deep into the abscess cavity, tracking [...] 10/12/2017 19:50:06DT: 10/12/2017 20:50:54Job #: | | [id number] | + + X-RAY PORTABLE CHEST 1 VIEW (10/12/2017 7:50 PM PDT) + + | Specimen | + + | | + + + + + | Narrative | Performed At | + + + | EXAM: AL CHEST 1 VIEW HISTORY: Evaluate endotracheal tube [...] Interface - 10/13/2017 9:04 AM PDT EXAM: AL CHEST 1 | | VIEW HISTORY: Evaluate [...] [facility] | [address] | [place], [place] | | | GLORIA GENAO OF [facility] | [address] | [address] | | | TESTS | | | [...] CENTER LAB[facility]ORY | [address] | [place] [address] | | | SERVICES, CORE [...] | | | LABORATORY | | | UGANDAN | | | SERVICES, | | | [...] [facility] | [address] | [place] [address] | | | SERVICES, CORE | PARK [...] CENTER LABORATORY | [address] | [place] [address] | | | ELIN, NATALEE | VILMA [...] DEPT OF | [address] | [place], [place] | | | CARDIOLOGY | [address] | [address] | | + + + + + [...] DEPT OF | [address] | [place], [place] | | | CARDIOLOGY | [facility] | [address] | | + + + + + [...] [facility] | [address] | [place] [address] | | | SERVICES, CORE | PARK [...] [facility] | [address] | [place] [address] | | | SERVICES, CORE | PARK [...] | | | LABORATORY | | | UGANDAN | | | SERVICES, | | | [...] CENTER LAB[facility]ATORY | [address] | [place] [address] | | | NATALEE WORTHINGTON | [address] | | | + + + + + PROCEDURE NOTE (10/10/2017 10:00 PM PDT) + + + | Narrative | Performed At | + + + | Darius Link MD 10/12/2017 11:11 AM OPERATIVE REPORT | | | DATE OF OPERATION: 10/10/2017 ATTENDING SURGEON: 1. Dr. Hernandez | | | ENGINEERING DIRECTOR: 1. Darius Link MD INDICATIONS: Dysphagia | | | and need for terminal gauger supervisor nutrition access PREOPERATIVE DIAGNOSIS: | | [...] abdominal wall | | | and the Gabriel-coonnor button was advanced through this. The gastrotomy [...] | | | [place] [address] Chief Resident | | | Neurosurgery | [...] + + + + + | [facility] | [address] | [place] [address] | | | SERVICES, CORE | VILMA [...] | | | LABORATORY | | | UGANDAN | | | SERVICES, | | | [...] LABORATORY | [address] | [place] [address] | | | SERVICES, CORE | PARK [...] + + + + + | [facility] | [address] | [place] [address] | | | SERVICES, [facility] | [address] | | | + + + + + OPERATION RECORD (10/10/2017 12:40 PM PDT) + + | Procedure Note | + + | Magdiel Stock MD - 10/10/2017 12:40 PM PDT Date of Service: 10/10/2017 Attending | | Surgeon: Magdiel Stock MD Web Application Dev Specialist(s): Cecilia Jackson, | | . Preoperative Diagnoses: [...] This is a 67-year-old male. Please see [facility] for full details. He | [...] | the note for this encounter.Sonal Nunez MD[facility] [id number] [facility] | | [place] [id number] Orina, MDFAH/MODLDD: | | 10/10/2017 11:52:15DT: 10/10/2017 12:40:41Job #: [id number] | | | | | |I was present for the critical portions of the procedure as described in the note for this encounter. | | | |Magdiel Stock MD | | | |Magdiel Stock MD | |[address] | |[address] [facility] | |[facility] | |[place] [address] | |[phone] | | | | | |Magdiel Stock MD | |FAH/MODL | | | | | | /[id number] | + + X-RAY ABDOMEN 1 VIEW [...] + | [facility] - | [address] | [place] [address] | | | [place] | | | [...] + | [facility] - | [address] | [place] [address] | | | [place] | | | | + + + [...] Gram Stain: No squamous epithelial cells | [facility] | | Many polymorphonuclear cells No organisms seen | | + + + + + + + + | Performing | Address | City/State/Zipcode | Phone Number | | Organization | | | | + + + + + | [facility] - | [address] | [place] [address] | | | [facility] [...] detected | [place] - | | | [place] | + + + + + + + + | Performing | Address | City/State/Zipcode | Phone Number | | Organization | | | | + + + + + | [facility] | [address] | [place] [address] | | | [place] | | | [...] + | [facility] - | [address] | [place] [address] | | | [place] | | | [...] + | [facility] - | [address] | [place] [address] | | | [place] | | | | + + + [...] + | [facility] - | [address] | [place] [address] | | | [place] | | | [...] | + + + + + | [facility] - | [address] | [place] [address] | | | [facility] | | | | + + + [...] No squamous epithelial cells No polymorphonuclear | [facility] - | | cells No organisms seen | [place] | + + + + + + + + | Performing | Address | City/State/Zipcode | Phone Number | | Organization | | | | + + + + + | [facility] | [address] | [place] [address] | | | [facility] | | | | + + + [...] + | [facility] - | [address] | [place] [address] | | | [place] | | | [...] Gram Stain: No squamous epithelial cells | [facility] | | Moderate polymorphonuclear cells No organisms seen | | + + + + + + + + | Performing | Address | City/State/Zipcode | Phone Number | | Organization | | | | + + + + + | [facility] | [address] | [place] [address] | | | [place] | | | [...] detected | [facility] - | | | [place] | + + + + + + + + | Performing | Address | City/State/Zipcode | Phone Number | | Organization | | | | + + + + + | [facility] | [address] | [place] [address] | | | [place] | | | [...] + | [facility] | [address] | [place] [address] | | | [place] | | | | + + + [...] + | [facility] - | [address] | [place] [address] | | | [facility] | | | | + + + [...] + | [facility] | [address] | [place] [address] | | | [facility] | | | | + + + [...] + | [facility] | [address] | [place] [address] | | | [place] | | | [...] + | [facility] | [address] | [place] [address] | | | [facility] | | | | + + + [...] + | [facility] | [address] | [place] [address] | | | [place] | | | [...] report as now presented. Final signature: Daniel rAmijo MD 10/10/2017 8:22 AM | | Preliminary: [...] [facility] | [address] | [place] [address] | | | SERVICES, CORE | PARK [...] [facility] | [address] | [place] [address] | | | SERVICES, CORE | PARK [...] [facility] | [address] | [place] [address] | | | SERVICES, CORE | PARK [...] | | | LABORATORY | | | [facility]AN | | | SERVICES, | | | [...] [facility] | [address] | [place] [address] | | | ELIN, NATALEE | PARK [...] DEPT OF | [address] | [place], [place] | | | CARDIOLOGY | [address] | [address] | | + + + + + [...] + + + + | PRODUCT | [id number] | | [facility] | | | UNIT [...] + + + + | EXPIRATION | [id number] | | [facility] | | | DATE [...] + + + + | BLOOD | [id number] | | [facility] | | | PRODUCT [...] + + + + + | [facility] | [address] | [place] [address] | | | SERVICES, | [address] [...] + + + + | PRODUCT | [id number] | | [facility] | | | UNIT [...] + + + + | EXPIRATION | [id number] | | [facility] | | | DATE [...] + + + + | BLOOD | [id number] | | [facility] | | | PRODUCT [...] | + + + + + | [facility] | [address] | [place] [address] | | | SERVICES, | [address] [...] [facility] | [address] | [place] [address] | | | SERVICES, | [address] [...] [facility] | [address] | [place] [address] | | | SERVICES, | [address] [...] [facility] | [address] | [place] [address] | | | SERVICES, | [address] [...] + + + + + | [facility] | [address] | [place] [address] | | | SERVICES, CORE | PARK [...] DEPT | | | IMPRESSION | by: GARBIELA VANN | | OF | | | [...] GE[facility] OF | [address] | [place], [place] | | | CARDIOLOGY | [address] | [address] | | + + + + + [...] Note | + + | Service Account, [employer] In Interface - 10/08/2017 10:47 AM [...] [facility] | [address] | [place], [place] | | | GLORIA GENAO OF [employer] | [address] | [address] | | | TESTS | | | [...] [facility]ENTER [facility] | [address] | [place] [address] | | | SERVICES, CORE | [address] | | | + + + + + MAGNESIUM, PLASMA (10/08/2017 6:00 AM PDT) + +-------+ + + + | Component | Value | Ref Range | Performed | Pathologist | | | | | At | Signature | + +-------+ + + + | MAGNESIUM,P | 2.2 | 1.6 - 2.6 mg/dL | [facility] | | | LASMA | | | [...] [facility] | [address] | [place] [address] | | | SERVICES, NATALEE | VILMA [...] | | | LABORATORY | | | UGANDAN | | | SERVICES, | | | [...] + + + + + | [facility] | [address] | [place] [address] | | | SERVICES, NATALEE | VILMA [...] [place] | [address] | [place], [place] | | | GLORIA GENAO OF CARE | [facility] | [address] | | | TESTS | | | [...] [place] | [address] | [place], [place] | | | GLORIA GENAO OF GM | [facility] | [address] | | | TESTS | | | [...] [facility] | [address] | [place], [place] | | | [place] [facility]INT OF CARE | [address] | [address] | | | TESTS | | | [...] [place] | [address] | [place], [place] | | | GLORIA GENAO OF CARE | [facility] | [address] | | | TESTS | | | [...] [facility] | [address] | [place], [place] | | | GLORIA GENAO OF [facility] | [address] | [address] | | | TESTS | | | [...] | + + + + + | [facility] | [address] | [place] [address] | | | NATALEE WORTHINGTON | VILMA [...] + + + + + | [facility] | [address] | [place] [address] | | | SERVICES, CORE | VILMA [...] | | | LABORATORY | | | UGANDAN | | | SERVICES, | | | [...] [facility]ENTER [facility] | [address] | [place] [address] | | | SERVICES, CORE | VILMA [...] [facility] | [address] | [place], [place] | | | GLORIA GENAO OF CARE | [address] | [address] | | | TESTS | | | [...] [place] | [address] | [place], [place] | | | [facility] CARE | [address] | [address] | | | TESTS | | | [...] DEPT OF | [address] | [place], [place] | | | CARDIOLOGY | [address] | [address] | | + + + + + [...] [facility] | [address] | [place], [place] | | | GLORIA GENAO OF CARE | [facility] | [address] | | | TESTS | | | [...] | + + + + + | [facility] | [address] | [place] [address] | | | NATALEE WORTHINGTON | VILMA [...] | [facility] | [address] | [place] [address] | | | SERVICES, CORE | PARK [...] | | | LABORATORY | | | UGANDAN | | | SERVICES, | | | [...] [facility]ENTER [facility] | [address] | [place] [address] | | | SERVICES, CORE | PARK [...] (H) | 70 - 99 mg/dL | [facility] | | | GLUCOSE, | | [...] [facility] | [address] | [place], [place] | | | GLORIA GENAO OF [employer] | [facility] | [address] | | | TESTS | | | [...] [place] | [address] | [place], [place] | | | GLORIA GENAO OF CARE | [facility] | [address] | | | TESTS | | | [...] [facility] | [address] | [place], [place] | | | [facility] POINT OF CARE | [address] | [address] | | | TESTS | | | [...] [facility] | [address] | [place], [place] | | | GLORIA GENAO OF GM | [facility] | [address] | | | TESTS | | | [...] DEPT OF | [address] | [place], [place] | | | CARDIOLOGY | [address] | [address] | | + + + + + [...] | + + + + + | [facility] | [address] | [place] [address] | | | SERVICES, CORE | PARK [...] [facility] | [address] | [place] [address] | | | SERVICES, CORE | VILMA [...] | | | LABORATORY | | | UGANDAN | | | SERVICES, | | | [...] [facility]ENTER [facility] | [address] | [place] [address] | | | SERVICES, CORE | VILMA [...] [facility] | [address] | [place], [place] | | | GLORIA GENAO OF [facility] | [facility] | [address] | | | TESTS | | | [...] [facility] | [address] | [place], [place] | | | GLORIA GENAO OF [employer] | [address] | [address] | | | TESTS | | | [...] [facility] | [address] | [place], [place] | | | [place] [facility]INT OF CARE | [facility] | [address] | | | TESTS | | | [...] [facility] | [address] | [place], [place] | | | GLORIA GENAO OF CARE | [facility] | [address] | | | TESTS | | | [...] [place] | [address] | [place], [place] | | | GLORIA GENAO OF GM | [address] | [address] | | | TESTS | | | [...] [facility] | [address] | [place] [address] | | | SERVICES, CORE | [address] | | | + + + + + MAGNESIUM, PLASMA (10/04/2017 5:28 AM PDT) + +-------+ + + + | Component | Value | Ref Range | Performed | Pathologist | | | | | At | Signature | + +-------+ + + + | MAGNESIUM,P | 2.0 | 1.6 - 2.6 mg/dL | [facility] | | | LASMA | | | [...] [facility] | [address] | [place] [address] | | | SERVICES, NATALEE | VILMA [...] | | | LABORATORY | | | UGANDAN | | | SERVICES, | | | [...] + + + + + | [facility] | [address] | [place] [address] | | | NATALEE WORTHINGTON [...] | [facility] | [address] | [place], [place] | | | GLORIA GENAO OF CARE | [facility] | [address] | | | TESTS | | | [...] + + | [facility] | [address] | [place], [place] | | | GLORIA GENAO OF [facility] | [address] | [address] | | | TESTS | | | [...] + + + + + | [facility] | [address] | [place] [address] | | | SERVICES, NATALEE | VILMA [...] by | | | | | | [employer],500 | | | | | | Rogelio Pickard, [facility],[place] | | | | | | [id number] | | | | | | [phone].[facility]. | | | | | | Gui [...] [facility] | [address] | [place], [place] | | | [facility] | | [address] | | + + + + + [...] [facility] | [address] | [place] [address] | | | SERVICES, CORE | PARK [...] [facility] | [address] | [place] [address] | | | SERVICES, CORE | PARK [...] modified from | [facility] | | original notch machine operator's approved specifications. The performance | LABORATORY | | of the TECHNICAL SUPPORT INTERN HIV Combo test, with or without confirmation, [...] CENTER LAB[facility] | [address] | [place] [address] | | | SERVICES, SPECIAL | VILMA [...] [facility] | [address] | [place], [place] | | | GLORIA GENAO OF [employer] | [facility] | [address] | | | TESTS | | | [...] - [place] | [address] | [place], [place] | | | [place] [facility]INT OF CARE | [facility] | [address] | | | TESTS | | | [...] | [facility] | [address] | [place] [address] | | | SERVICES, CORE | PARK [...] [facility] | [address] | [place] [address] | | | SERVICES, CORE | PARK [...] | | | LABORATORY | | | UGANDAN | | | SERVICES, | | | [...] | [facility] | [address] | [place] [address] | | | SERVICES, CORE | PARK [...] [facility] | [address] | [place], [place] | | | GLORIA GENAO OF [facility] | [address] | [address] | | | TESTS | | | [...] [place] | [address] | [place], [place] | | | [facility] POINT OF CARE | [address] | [address] | | | TESTS | | | [...] DEPT OF | [address] | [place], [place] | | | CARDIOLOGY | [address] | [address] | | + + + + + [...] At | + + + | EXAM: AL CHEST 1 VIEW HISTORY: Evaluate PICC placement [...] Note | + + | Service Account, [employer] In Interface - 10/02/2017 2:07 PM PDT EXAM: AL CHEST 1 | | VIEW HISTORY: Evaluate [...] [facility] | [address] | [place], [place] | | | GLORIA GENAO OF CARE | [address] | [address] | | | TESTS | | | | + + + + + X-RAY PORTABLE CHEST 1 VIEW (10/02/2017 8:56 AM PDT) + + | Specimen | + + | | + + + + + | Narrative | Performed At | + + + | EXAM: AL CHEST 1 VIEW HISTORY: new leukocytosis, eval [...] Interface - 10/02/2017 10:27 AM PDT EXAM: AL CHEST 1 | | VIEW HISTORY: new [...] [facility] | [address] | [place], [place] | | | [facility]INT [facility] CARE | [address] | [address] | | | TESTS | | | [...] [facility] | [address] | [place] [address] | | | NATALEE WORTHINGTON | VILMA [...] | [facility] | [address] | [place] [address] | | | SERVICES, CORE | PARK [...] | | | LABORATORY | | | UGANDAN | | | SERVICES, | | | [...] [facility]ENTER [facility] | [address] | [place] [address] | | | SERVICES, CORE | PARK [...] [facility] | [address] | [place], [place] | | | GLORIA GENAO OF GM | [facility] | [address] | | | TESTS | | | [...] + + + | [facility] | [address] | [place], [place] | | | [place]INT OF [facility] | [address] | [address] | | | TESTS | | | [...] [facility] | [address] | [place], [place] | | | JOHN GENAO | [address] | [address] | | | TESTS | | | [...] Note | + + | Service Account, Hamilton Thorne In Interface - 10/01/2017 11:34 AM PDT [...] [facility] | [address] | [place], [place] | | | [facility] CARE | [address] | [address] | | | TESTS | | | [...] [facility] | [address] | [place] [address] | | | NATALEE WORTHINGTON | PARK [...] CENTER [facility] | [address] | [place] [address] | | | NATALEE WORTHINGTON | PARK [...] | | | LABORATORY | | | UGANDAN | | | SERVICES, | | | [...] + + + + + | [facility] | [address] | [place] [address] | | | SERVICES, CORE | VILMA [...] [place] | [address] | [place], [place] | | | GLORIA GENAO OF CARE | [address] | [address] | | | TESTS | | | [...] [facility] | [address] | [place], [place] | | | [place] OF [facility] | [address] | [address] | | | TESTS | | | [...] DEPT OF | [address] | [place], [place] | | | CARDIOLOGY | [address] | [address] | | + + + + + [...] MD 09/30/2017 1:27 PM | |Preliminary: Ajay Stuot MD | |Dictation initiated: Ajay Stout MD [...] [facility] | [address] | [place], [place] | | | [facility] POINT OF CARE | [address] | [address] | | | TESTS | | | [...] [place] | [address] | [place], [place] | | | GLORIA GENAO OF [facility] | [facility] | [address] | | | TESTS | | | [...] [facility] | [address] | [place] [address] | | | SERVICES, CORE | PARK [...] [facility] | [address] | [place] [address] | | | SERVICES, CORE | PARK [...] | | | LABORATORY | | | UGANDAN | | | SERVICES, | | | [...] | [facility] | [address] | [place] [address] | | | NATALEE WORTHINGTON | VILMA [...] - [place] | [address] | [place], [place] | | | [facility]INT OF CARE | [address] | [address] | | | TESTS | | | [...] + + + | [facility] | [address] | [place], [place] | | | [facility]INT OF CARE | [address] | [address] | | | TESTS | | | [...] [place] | [address] | [place], [place] | | | [facility] POINT OF CARE | [address] | [address] | | | TESTS | | | [...] DEPT OF | [address] | [place], [place] | | | CARDIOLOGY | [address] | [address] | | + + + + + [...] [facility] | [address] | [place], [place] | | | GLORIA GENAO OF GM | [facility] | [address] | | | TESTS | | | [...] + + + + + | [facility] | [address] | [place] [address] | | | SERVICES, CORE | VILMA [...] | | | LABORATORY | | | UGANDAN | | | SERVICES, | | | [...] [facility] | [address] | [place] [address] | | | SERVICES, CORE | PARK [...] CENTER [facility] | [address] | [place] [address] | | | NATALEE WORTHINGTON | PARK [...] [facility] | [address] | [place], [place] | | | GLORIA GENAO OF GM | [facility] | [address] | | | TESTS | | | [...] [place] | [address] | [place], [place] | | | GLORIA GENAO OF CARE | [address] | [address] | | | TESTS | | | [...] [facility] | [address] | [place], [place] | | | GLORIA GENAO OF GM | [facility] | [address] | | | TESTS | | | [...] DEPT OF | [address] | [place], [place] | | | CARDIOLOGY | [address] | [address] | | + + + + + [...] + + + | [facility] | [address] | [place], [place] | | | GLORIA GENAO OF [facility] | [address] | [address] | | | TESTS | | | [...] [facility] | [address] | [place] [address] | | | NATALEE WORTHINGTON | PARK [...] [facility]ENTER [facility] | [address] | [place] [address] | | | ELIN, NATALEE | VILMA [...] | | | LABORATORY | | | UGANDAN | | | SERVICES, | | | [...] + + + + + | [facility] | [address] | [place] [address] | | | SERVICES, CORE | PARK [...] [facility] | [address] | [place], [place] | | | GLORIA GENAO OF [employer] | [address] | [address] | | | TESTS | | | [...] + + | [facility] | [address] [facility] | [place], [place] | | | [place] OF [facility] | [address] | [address] | | | TESTS | | | [...] poorly cleared with dry swallows. Please see [facility] report for full details | | [...] [place] | [address] | [place], [place] | | | [facility] POINT OF CARE | [address] | [address] | | | TESTS | | | [...] [facility] | [address] | [place], [place] | | | [place] OF [facility] | [address] | [address] | | | TESTS | | | [...] [facility]ENTER [facility] | [address] | [place] [address] | | | SERVICES, NATALEE | VILMA [...] + + + + + | [facility] | [address] | [place] [address] | | | SERVICES, CORE | VILMA [...] | | | LABORATORY | | | UGANDAN | | | SERVICES, | | | [...] [facility] | [address] | [place] [address] | | | SERVICES, CORE [...] [facility] | [address] | [place], [place] | | | GLORIA GENAO OF CARE | [address] | [address] | | | TESTS | | | [...] [place] | [address] | [place], [place] | | | GLORIA GENAO OF CARE | [address] | [address] | | | TESTS | | | [...] DEPT OF | [address] | [place], [place] | | | CARDIOLOGY | [address] | [address] | | + + + + + [...] [facility] | [address] | [place], [place] | | | [facility] POINT OF CARE | [address] | [address] | | | TESTS | | | [...] [place] | [address] | [place], [place] | | | [place], POINT OF CARE | [address] | [address] | | | TESTS | | | [...] [place] | [address] | [place], [place] | | | GLORIA GENAO OF [facility] | [address] | [address] | | | TESTS | | | [...] CENTER [facility] | [address] | [place] [address] | | | NATALEE WORTHINGTON | VILMA [...] + + + + + | [facility] | [address] | [place] [address] | | | SERVICES, CORE | VILMA [...] | | | LABORATORY | | | UGANDAN | | | SERVICES, | | | [...] [facility]ENTER [facility] | [address] | [place] [address] | | | SERVICES, CORE | VILMA [...] + + + | [facility] | [address] | [place], [place] | | | [facility] POINT OF CARE | [address] | [address] | | | TESTS | | | [...] | [facility] | [address] | [place] [address] | | | ELIN, NATALEE | VILMA [...] + + + + + | [facility] | [address] | [place] [address] | | | SERVICES, CORE | VILMA [...] | | | LABORATORY | | | UGANDAN | | | SERVICES, | | | [...] CENTER [facility] | [address] | [place] [address] | | | SERVICES, CORE | [address] | | | + + + + + 12 LEAD ECG (09/24/2017 9:28 PM PDT) + + + + + + | Component | Value | Ref Range | Performed | Pathologist | | | | | At | Signature | + + + + + + | VENTRICULAR | 74 | bpm | [facility] | | | RATE | | [...] DEPT | | | IMPRESSION | by: AGBRIELA VANN | | OF | | | [...] [facility] | [address] | [place], [place] | | | CARDIOLOGY | [address] | [address] | | + + + + + [...] Parsons MD 09/24/2017 2:43 PM | |Preliminary: Edelimra Parsons MD | + + + +---------+ [...] Note | + + | Service Account, [employer] Res In Interface - 09/24/2017 4:09 PM [...] CENTER [facility] | [address] | [place] [address] | | | NATALEE WORTHINGTON | VILMA [...] | | | LABORATORY | | | UGANDAN | | | SERVICES, | | | [...] | + + + + + | [facility] | [address] | [place] [address] | | | SERVICES, CORE | VILMA [...] CENTER [facility] | [address] | [place] [address] | | | NATALEE WORTHINGTON | PARK [...] | + + + + + | [facility] | [address] | [place] [address] | | | SERVICES, CORE | PARK [...] | | LABORATORY | | | NATALEE WORTHNIGTON | + + + + + + + + | Performing | Address | City/State/Zipcode | Phone Number | | Organization | | | | + + + + + | [facility] | [address] | [place] [address] | | | SERVICES, NATALEE | VILMA [...] | | | LABORATORY | | | UGANDAN | | | SERVICES, | | | [...] + + + | [facility] | [address] | [place] [address] | | | SERVICES, CORE | VILMA [...] [facility] | [address] | [place], [place] | | | GLORIA GENAO OF GM | [facility] | [address] | | | TESTS | | | [...] [facility] | [address] | [place], [place] | | | [facility] POINT OF CARE | [address] | [address] | | | TESTS | | | [...] [facility] | [address] | [place] [address] | | | NATALEE WORTHINGTON | VILMA [...] GE[facility] OF | [address] | [place], [place] | | | CARDIOLOGY | [facility] | [address] | | + + + + + [...] | [facility] | [address] | [place] [address] | | | SERVICES, CORE | PARK [...] [facility] | [address] | [place] [address] | | | SERVICES, CORE | PARK [...] | | | LABORATORY | | | UGANDAN | | | SERVICES, | | | [...] [facility]ENTER [facility] | [address] | [place] [address] | | | SERVICES, CORE | PARK [...] [facility] | [address] | [place], [place] | | | [place] POINT OF [facility] | [address] | [address] | | | TESTS | | | [...] [facility] | [address] | [place] [address] | | | NATALEE WORTHINGTON | VILMA [...] [facility]ENTER [facility] | [address] | [place] [address] | | | NATALEE WORTHINGTON | PARK [...] | | | LABORATORY | | | UGANDAN | | | SERVICES, | | | [...] | + + + + + | [facility] | [address] | [place] [address] | | | SERVICES, CORE | VILMA [...] Note | + + | Service Account, [employer] In Interface - 09/20/2017 6:25 PM [...] Note | + + | Service Account, [employer] In Interface - 09/20/2017 5:17 PM [...] DEPT OF | [address] | [place], [place] | | | CARDIOLOGY | [address] | [id number] | | + + + + + [...] + + + + + | [facility] | [address] | [place] [address] | | | SERVICES, CORE | VILMA [...] [facility] | [address] | [place] [address] | | | SERVICES, CORE | PARK [...] | | | LABORATORY | | | [facility] | | | SERVICES, | | | [...] [facility] | [address] | [place] [address] | | | SERVICES, CORE | PARK [...] + + + + + | [facility] | [address] | [place] [address] | | | SERVICES, CORE | P[facility] [...] [facility] | [address] | [place] [address] | | | SERVICES, CORE | PARK [...] | | | LABORATORY | | | [facility] | | | SERVICES, | | | [...] [facility] | [address] | [place] [address] | | | SERVICES, CORE | PARK [...] + + + + + | [facility] | [address] | [place] [address] | | | SERVICES, CORE | VILMA [...] LABORATORY | [address] | [place] [address] | | | SERVICES, CORE | PARK [...] | | | LABORATORY | | | [facility] | | | SERVICES, | | | [...] [facility]ENTER [facility] | [address] | [place] [address] | | | SERVICES, NATALEE | VILMA [...] Note | + + | Service Account, [employer] In Interface - 09/17/2017 11:53 AM PDT [...] [facility] | [address] | [place] [address] | | | NATALEE WORTHINGTON | VILMA [...] | [facility] | [address] | [place] [address] | | | SERVICES, NATALEE | PARK [...] | | | LABORATORY | | | [facility] | | | SERVICES, | | | [...] + + + + + | [facility] | [address] | [place] [address] | | | SERVICES, CORE | [address] | | | + + + + + X-RAY PORTABLE CHEST PICC LINE CHECK (09/16/2017 1:11 PM PDT) + + | Specimen | + + | | + + + + + | Narrative | Performed At | + + + | EXAM: AL CHEST PICC LINE CHECK HISTORY: PICC placement [...] Interface - 09/16/2017 1:34 PM PDT EXAM: AL CHEST | | PICC LINE CHECK HISTORY: [...] At | + + + | EXAM: AL CHEST PICC LINE CHECK HISTORY: Evaluate PICC [...] | + + | Service Account, Kostas Kiwigrid In Interface - 09/16/2017 11:41 AM PDT EXAM: AL CHEST | | PICC LINE CHECK HISTORY: [...] CENTER [facility] | [address] | [place] [address] | | | NATALEE WORTHINGTON | PARK [...] + + + + + | [facility] | [address] | [place] [address] | | | SERVICES, CORE | VILMA [...] | | | LABORATORY | | | [facility] | | | SERVICES, | | | [...] | + + + + + | [facility] | [address] | [place] [address] | | | SERVICES, CORE | [address] | | | + + + + + X-RAY PORTABLE CHEST 1 VIEW (09/15/2017 3:28 PM PDT) + + | Specimen | + + | | + + + + + | Narrative | Performed At | + + + | EXAM: AL CHEST 1 VIEW HISTORY: COMPARISON: None. 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 Catheter lot number: [id number] with a length of 55 | | [...] | [facility] | [address] | [place] [address] | | | NATALEE WORTHINGTON | VILMA [...] + + + + + | [facility] | [address] | [place] [address] | | | SERVICES, CORE | VILMA [...] | | | LABORATORY | | | UGANDAN | | | SERVICES, | | | [...] + + + + + | [facility] | [address] | [place] [address] | | | SERVICES, CORE | [address] | | | + + + + + X-RAY SPINE CERVICAL 2 VIEWS (09/14/2017 4:51 PM PDT) + + | Specimen | + + | | + + + + + | Narrative | Performed At | + + + | EXAM: SPINE CERVICAL 2 VIEWS HISTORY: Cervical spine fractures | [facility] | | COMPARISON: 08/31/17 FINDINGS: The upper [...] [facility] | [address] | [place] [address] | | | NATALEE WORTHINGTON | VILMA [...] | [facility] | [address] | [place] [address] | | | SERVICES, NATALEE | PARK [...] | | | LABORATORY | | | UGANDAN | | | SERVICES, | | | [...] | + + + + + | [facility] | [address] | [place] [address] | | | SERVICES, CORE | VILMA [...] [facility] | [address] | [place] [address] | | | NATALEE WORTHINGTON | VILMA [...] CENTER [facility] | [address] | [place] [address] | | | NATALEE WORTHINGTON | PARK [...] | | | LABORATORY | | | UGANDAN | | | SERVICES, | | | [...] + + + + + | [facility] | [address] | [place] [address] | | | SERVICES, CORE | VILMA [...] [facility]ENTER [facility] | [address] | [place] [address] | | | ELIN, NATALEE | PARK [...] [facility] | [address] | [place] [address] | | | SERVICES, CORE | PARK [...] | | | LABORATORY | | | UGANDAN | | | SERVICES, | | | [...] | [facility] | [address] | [place] [address] | | | NATALEE WORTHINGTON | VILMA [...] Note | + + | Service Account, [employer] In Interface - 09/11/2017 6:22 PM [...] [facility] | [address] | [place] [address] | | | SERVICES, CORE | [address] | | | + + + + + MAGNESIUM, PLASMA (09/11/2017 7:12 AM PDT) + +---------+ + + + | Component | Value | Ref Range | Performed | Pathologist | | | | | At | Signature | + +---------+ + + + | MAGNESIUM,P | 2.7 (H) | 1.6 - 2.6 mg/dL | [facility] | [address] | [place] [address] | | | ELIN, NATALEE | VILAM [...] | | | LABORATORY | | | UGANDAN | | | SERVICES, | | | [...] + + + + + | [facility] | [address] | [place] [address] | | | SERVICES, CORE | VILMA [...] + + + + + | [facility] | [address] | [place] [address] | | | SERVICES, CORE | VILMA [...] Note | + + | Service Account, [employer] In Interface - 09/10/2017 2:08 PM [...] Note | + + | Service Account, [employer] In Interface - 09/10/2017 2:31 PM [...] At | + + + | STUDY: AL CHEST 1 VIEW 09/10/17 07:02:01 HISTORY: Possible [...] Note | + + | Service Account, [employer] In Interface - 09/10/2017 9:25 AM PDT STUDY: AL CHEST 1 | | VIEW 09/10/17 07:02:01 [...] [facility] | [address] | [place] [address] | | | SERVICES, CORE | VILMA [...] [facility] | [address] | [place] [address] | | | SERVICES, CORE | PARK [...] | + + + + + | [facility] | [address] | [place] [address] | | | SERVICES, CORE | VILMA [...] [facility] | [address] | [place] [address] | | | SERVICES, CORE | VILMA [...] | | | LABORATORY | | | UGANDAN | | | SERVICES, | | | [...] [facility] | [address] | [place] [address] | | | SERVICES, CORE | VILMA [...] [facility] | [address] | [place], [place] | | | CARDIOLOGY | [address] | [address] | | + + + + + [...] Note | + + | Service Account, [employer] In Interface - 09/10/2017 11:11 AM [...] [facility] | [address] | [place], [place] | | | [facility] CARE | [facility] | [address] | | | TESTS | | | [...] [facility] | [address] | [place] [address] | | | ELIN, NATALEE | VILMA [...] [facility] | [address] | [place] [address] | | | SERVICES, CORE | PARK [...] | | | LABORATORY | | | UGANDAN | | | SERVICES, | | | [...] | [facility] | [address] | [place] [address] | | | SERVICES, CORE | PARK [...] [facility] | [address] | [place] [address] | | | SERVICES, [facility] | [address] | | | + [...] | | | LABORATORY | | | UGANDAN | | | SERVICES, | | | [...] [facility] | [address] | [place] [address] | | | SERVICES, CORE | PARK [...] + + + + + | [facility] | [address] | [place] [address] | | | SERVICES, CORE | PARK [...] [facility] | [address] | [place] [address] | | | SERVICES, CORE | PARK [...] | + + + + + | [facility] | [address] | [place], [place] | | | CARDIOLOGY | [address] | [address] | | + + + + + X-RAY PORTABLE CHEST 1 VIEW (09/07/2017 6:12 AM PDT) + + | Specimen | + + | | + + + + + | Narrative | Performed At | + + + | EXAM: AL CHEST 1 VIEW HISTORY: Post extubation COMPARISON: [...] Interface - 09/07/2017 10:46 AM PDT EXAM: AL CHEST 1 | | VIEWHISTORY: Post extubationCOMPARISON: [...] [facility] | [address] | [place] [address] | | | NATALEE WORTHINGTON | VILMA [...] | | | LABORATORY | | | UGANDAN | | | SERVICES, | | | [...] + + + | [facility] | [address] | [place] [address] | | | SERVICES, NATALEE | VILMA [...] + + + + + | [facility] | [address] | [place] [address] | | | SERVICES, CORE | PARK [...] Note | + + | Service Account, [employer] In Interface - 09/07/2017 10:46 AM [...] DEPT OF | [address] | [place], [place] | | | CARDIOLOGY | [address] | [address] | | + + + + + [...] | | | attempt. Midline lot number [id number]; there was positive blood | | | [...] | | | LABORATORY | | | UGANDAN | | | SERVICES, | | | [...] [facility] | [address] | [place] [address] | | | SERVICES, CORE | PARK [...] + + + + + | [facility] | [address] | [place] [address] | | | SERVICES, [facility] | [address] | | | + + + + + X-RAY PORTABLE CHEST 1 VIEW (09/05/2017 5:33 AM PDT) + + | Specimen | + + | | + + + + + | Narrative | Performed At | + + + | EXAM: AL CHEST 1 VIEW HISTORY: Evaluation after chest [...] Interface - 09/05/2017 10:16 AM PDT EXAM: AL CHEST 1 | | VIEW HISTORY: Evaluation [...] + + + + + | [facility] | [address] | [place] [address] | | | ELIN, NATALEE | VILMA [...] + + + + + | [facility] | [address] | [place] [address] | | | SERVICES, CORE | PARK [...] | | | LABORATORY | | | UGANDAN | | | SERVICES, | | | [...] [facility] | [address] | [place] [address] | | | SERVICES, CORE | VILMA [...] | | | LABORATORY | | | UGANDAN | | | SERVICES, | | | [...] + + + + + | [facility] | [address] | [place] [address] | | | [facility] | [address] | | | + [...] tomorrow morning. CB Henson Pager / ID: [phone] | | + + + CULTURE, SPUTUM [...] | + + + + + | [email or web address] - AIRPORT - | [address] | [place] [address] | | | [place] | | | | + + + [...] [facility] | [address] | [place] [address] | | | SERVICES, CORE | VILMA [...] | [facility] | | | GRAVITY | [place] performed by | | LABORATORY | | [...] [facility] | [address] | [place] [address] | | | SERVICES, CORE | [address] | | | + + + + + CULTURE, BLOOD BACTI & YEAST [facility] (09/04/2017 1:16 PM PDT) + [...] CENTER [facility] | [address] | [place] [address] | | | SERVICES, CORE | VILMA [...] [facility] | [address] | [place] [address] | | | SERVICES, CORE | PARK [...] [facility] | [address] | [place], [place] | | | CARDIOLOGY | [address] | [address] | | + + + + + X-RAY PORTABLE CHEST 1 VIEW (09/04/2017 7:04 AM PDT) + + | Specimen | + + | | + + + + + | Narrative | Performed At | + + + | EXAM: AL CHEST 1 VIEW HISTORY: Hypoxia. Intubated. | [...] Interface - 09/04/2017 9:49 AM PDT EXAM: AL CHEST 1 | | VIEW HISTORY: Hypoxia. [...] + + + + + | [facility] | [address] | [place] [address] | | | SERVICES, CORE | VILMA [...] + + + + + | [facility] | [address] | [place] [address] | | | SERVICES, CORE | PARK [...] | | | LABORATORY | | | UGANDAN | | | SERVICES, | | | [...] the MDRD equation recommended by the | [facility] | | National Kidney Disease Education Program. [...] [facility]ENTER [facility] | [address] | [place] [address] | | | SERVICES, CORE | PARK [...] [facility] | [address] | [place] [address] | | | SERVICES, CORE | PARK [...] - [facility] | [address] | [place], [place] | | | [facility] [facility]INT [facility] CARE | [address] | [address] | | | TESTS | | | [...] + + + | [facility] | [address] | [place], [place] | | | [place] [facility]ARE | [address] | [address] | | | TESTS | | | [...] [facility] | [address] | [place], [place] | | | [facility] [facility]ARE | [address] | [address] | | | TESTS | | | [...] [facility] | [address] | [place], [place] | | | [facility] | [address] | [address] | | | TESTS | | | [...] Note | + + | Service Account, [employer] In Interface - 09/03/2017 10:27 AM PDT [...] detected | AIRPORT - | | | [facility] | + + + + + + + + | Performing | Address | City/State/Zipcode | Phone Number | | Organization | | | | + + + + + | [email or web address] - AIRPORT - | [address] | [place] [address] | | | [place] | | | [...] [facility] | [address] | [place] [address] | | | SERVICES, CORE | PARK [...] Note | + + | Service Account, Hamilton Thorne In Interface - 09/03/2017 9:54 AM PDT [...] + | [facility] - AIRPORT - | [address] | [place] [address] | | | [place] | | | | + + + [...] [facility] | [address] | [place] [address] | | | SERVICES, CORE | PARK [...] + + + + + | [facility] | [address] | [place] [address] | | | SERVICES, CORE | VILMA [...] | | | LABORATORY | | | U[facility]AN | | | SERVICES, | | | [...] + + + + + | [facility] | [address] | [place] [address] | | | SERVICES, CORE | PARK [...] + + + + + | [facility] | [address] | [place] [address] | | | SERVICES, CORE | [address] | | | + + + + + OPERATION RECORD (09/02/2017 6:53 PM PDT) + + | Procedure Note | + + | Fidelina Shields MD - 09/02/2017 6:53 PM PDT Date of Service: 09/02/2017 | | Attending Surgeon: Fidelina Shields MD Web Application Dev Specialist(s): | | Ajay Butts MD, resident. Preoperative [...] 09/02/2017 18:15:29DT: 09/02/2017 18:53:52Job #: | | [id number] to federal Medicare and Medicaid regulations I was present for | | the entire procedure.Fidelina Shields MDAssistant ProfessorDepartment of SurgeryOffice: | | [phone]: [id number] has been electronically signed by Fidelina Shields MD, | | 09/03/2017 at 9:11 AM. | | | | | |Fidelina Shields MD | |[facility] | |Department of Surgery | |Office: [phone] | |Pager: [phone] | | | |This has been electronically [...] + + + + + | [facility] | [address] | [place] [address] | | | SERVICES, CORE | VILMA [...] [facility] | [address] | [place] [address] | | | SERVICES, CORE | [...] detected | AIRPORT - | | | [place] | + + + + + + + + | Performing | Address | City/State/Zipcode | Phone Number | | Organization | | | | + + + + + | [facility] - | [address] | [place] [address] | | | [place] | | | | + + + [...] [facility] | [address] | [place] [address] | | | SERVICES, CORE | PARK [...] | | | LABORATORY | | | UGANDAN | | | SERVICES, | | | [...] + + + + + | [facility] | [address] | [place] [address] | | | NATALEE WORTHINGTON | VILMA [...] Note | + + | Service Account, [employer] In Interface - 09/02/2017 4:25 PM [...] | | | contact: INGRID Butts, Surgery [id number] Pursuant | | | to federal Medicare and Medicaid regulations I was present for the | | | entire procedure. Fidelina Shields MD [facility] | | | Department of Surgery Office: [phone] Pager: [phone] This has | | | been electronically [...] CENTER [facility] | [address] | [place] [address] | | | SERVICES, CORE | PARK [...] + + + + + | [facility] | [address] | [place] [address] | | | SERVICES, NATALEE | [address] | | | + + + + + OPERATION RECORD (09/02/2017 6:51 AM PDT) + ---+ | Procedure Note | + ---+ | Fidelina Shields MD - 09/02/2017 6:51 AM PDT Date of Service: 09/01/2017 | | Attending Surgeon: Fidelina Shields MD Web Application Dev Specialist(s): Haim Peralta MD. | | Ajay Butts [...] 09/02/2017 06:17:53DT: 09/02/2017 | | 06:51:37Job #: [id number] to federal Medicare and Medicaid regulations I | | was present for the entire procedure.Fidelina Goodenistanbrice ProfessorDepartment of | | SurgeryOffice: [phone]: [id number] has been electronically signed by Fidelina Radford | MD Cornelius, 09/02/2017 at 10:40 AM. | | | | | |Pursuant to federal Medicare and Medicaid regulations I was present for the entire procedur e. | | | | | | | |Fidelina Shields MD | |[facility] | |Department of Surgery | |Office: [phone] | |Pager: [phone] | | | |This has been electronically [...] | + + + + + | [facility] | [address] | [place] [address] | | | SERVICES, CORE | VILMA [...] [facility] | [address] | [place] [address] | | | SERVICES, NATALEE | VIL[address] [...] + + + + | PRODUCT | [id number] | | [facility] | | | UNIT [...] + + + + | EXPIRATION | [id number] | | [facility] | | | DATE [...] + + + + | BLOOD | [id number] | | [facility] | | | PRODUCT [...] [facility] | [address] | [place] [address] | | | SERVICES, | [address] [...] Note | + + | Service Account, [employer] In Interface - 09/02/2017 11:22 AM [...] + + + + + | [facility] | [address] | [place] [address] | | | SERVICES, CORE | VILMA [...] | | | LABORATORY | | | UGANDAN | | | SERVICES, | | | [...] + + + + + | [facility] | [address] | [place] [address] | | | SERVICES, CORE | VILMA [...] | + + + + + | [facility] | [address] | [place] [address] | | | SERVICES, CORE | [address] [...] (http://www.cdc.gov/mmwr | | | | | | /preview/mmwrhtml/ct9535 | | | | | | [email or web address].htm), [...] [facility] - | | | | by [employer], | | AIRPORT - | | | | | | [facility] | | | | [address] | | | | | | [facility] | | | | | | [address] | | | | | | | | | | | | www.[employer] | | | | | | [...] + | [facility] AIRPORT - | [address] | [place] [address] | | | [place] | | | [...] + + + + + | [facility] | [address] | [place] [address] | | | SERVICES, CORE | VILMA [...] [facility]ENTER [facility] | [address] | [place] [address] | | | SERVICES, CORE | PARK [...] At | + + + | EXAM: AL CHEST 1 VIEW HISTORY: Hypoxemia COMPARISON: 09/01/17 [...] Interface - 09/02/2017 10:34 AM PDT EXAM: AL CHEST 1 | | VIEW HISTORY: HypoxemiaCOMPARISON: [...] [facility] | [address] | [place] [address] | | | SERVICES, CORE | PARK [...] | + + + + + | [facility] | [address] | [place] [address] | | | SERVICES, CORE | VILMA [...] + + + + | PRODUCT | [id number] | | [facility] | | | UNIT [...] + + + + | EXPIRATION | [id number] | | [facility] | | | DATE [...] + + + + | BLOOD | [id number] | | [facility] | | | PRODUCT [...] + + + + + | [facility] | [address] | [place] [address] | | | SERVICES, | [address] [...] [facility] | [address] | [place] [address] | | | SERVICES, CORE | PARK [...] [facility] | [address] | [place] [address] | | | SERVICES, CORE | PARK [...] + + + + + | [facility] | [address] | [place] [address] | | | SERVICES, CORE | [address] [...] | | | LABORATORY | | | U[facility]ANDAN | | | SERVICES, | | | [...] the MDRD equation recommended by the | [facility] | | National Kidney Disease Education Program. [...] | [facility] | [address] | [place] [address] | | | NATALEE WORTHINGTON | VILMA [...] CENTER [facility] | [address] | [place] [address] | | | NATALEE WORTHINGTON | [address] [...] is a | 1.14 - 1.32 | [facility] | | | WHOLE BLD | corrected result. | mmol/L | LABORATORY | | | | Previous result was 1.19 | | [facility], | | | | mmol/L on [...] | + + + + + | [facility] | [address] | [place] [address] | | | NATALEE WORTHINGTON | [address] [...] micropuncture access set was exchanged for a Neosens wire. Under | | | fluoroscopic guidance, a 5 Fr flush catheter was used to evaluate the | | | distal abdominal aorta and pelvic vasculature. A wire and catheter | | | were then used to select the left common and internal iliac arteries | | | from the right PASTRY FINISHER approach. DSA was performed from the left [...] | | iliac arteries from the right PASTRY FINISHER approach. DSA was performed from the left [...] and internal iliac arteries from the right PASTRY FINISHER approach. DSA was performed from the left [...] [facility] | [address] | [place], [place] | | | H[place], POINT OF CARE | [address] | [address] | | | TESTS | | | | + + + + + EXPLORATORY LAPAROTOMY (09/01/2017 12:31 PM PDT) + + + | Narrative | Performed At | + + + | Fidelina Shields MD 09/01/2017 12:42 PM BRIEF OPERATIVE NOTE: | | | Date: 09/01/2017 Author: Fidelina Shields MD | | | Attending Physician: Fidelina Shields MD Web Application Dev Specialist(s): Haim Peralta | | | , Vicente Butts MD, [facility] MS3 Prior to the | | | [...] case. | | | Fidelina Shields MD [facility] Division of Trauma, | | | Critical Care and Acute Care Surgery Office: [phone] Pager: | | [phone] | | + + + ABG-FULL ABL, [...] [facility] | [address] | [place], [place] | | | [facility] POINT OF CARE | [address] | [address] | | | TESTS | | | [...] [facility] | [address] | [place] [address] | | | SERVICES, NATALEE | VILMA [...] [facility] | [address] | [place], [place] | | | [place] [facility]INT OF CARE | [address] | [address] | | | TESTS | | | [...] + + + + | PRODUCT | [id number] | | [facility] | | | UNIT [...] + + + + | EXPIRATION | [id number] | | [facility] | | | DATE [...] + + + + | BLOOD | [id number] | | [facility] | | | PRODUCT [...] [facility] | [address] | [place] [address] | | | SERVICES, | [address] [...] + + + + | PRODUCT | [id number] | | [facility] | | | UNIT [...] + + + + | EXPIRATION | [id number] | | [facility] | | | DATE [...] + + + + | BLOOD | [id number] | | [facility] | | | PRODUCT [...] + + + + + | [facility] | [address] | [place] [address] | | | SERVICES, | [address] [...] + + + + | PRODUCT | [id number] | | [facility] | | | UNIT [...] + + + + | EXPIRATION | [id number] | | [facility] | | | DATE [...] + + + + | BLOOD | [id number] | | [facility] | | | PRODUCT [...] | + + + + + | [facility] | [address] | [place] [address] | | | SERVICES, | [address] [...] + + + + | PRODUCT | [id number] | | [facility] | | | UNIT [...] + + + + | EXPIRATION | [id number] | | [facility] | | | DATE [...] + + + + | BLOOD | [id number] | | [facility] | | | PRODUCT [...] + + + + + | [facility] | [address] | [place] [address] | | | SERVICES, | [address] [...] + + + + | PRODUCT | [id number] | | [facility] | | | UNIT [...] + + + + | EXPIRATION | [id number] | | [facility] | | | DATE [...] + + + + | BLOOD | [id number] | | [facility] | | | PRODUCT [...] [facility] | [address] | [place] [address] | | | SERVICES, | [address] [...] + + + + | PRODUCT | [id number] | | [facility] | | | UNIT [...] + + + + | EXPIRATION | [id number] | | [facility] | | | DATE [...] + + + + | BLOOD | [id number] | | [facility] | | | PRODUCT [...] [facility] | [address] | [place] [address] | | | SERVICES, | [address] [...] + + + + | PRODUCT | [id number] | | [facility] | | | UNIT [...] + + + + | EXPIRATION | [id number] | | [facility] | | | DATE [...] + + + + | BLOOD | [id number] | | [facility] | | | PRODUCT [...] [facility] | [address] | [place] [address] | | | SERVICES, | [address] [...] + + + + | PRODUCT | [id number] | | [facility] | | | UNIT [...] + + + + | EXPIRATION | [id number] | | [facility] | | | DATE [...] + + + + | BLOOD | [id number] | | [facility] | | | PRODUCT [...] [facility] | [address] | [place] [address] | | | SERVICES, | [address] [...] + + + + | PRODUCT | [id number] | | [facility] | | | UNIT [...] + + + + | EXPIRATION | [id number] | | [facility] | | | DATE [...] + + + + | BLOOD | [id number] | | [facility] | | | PRODUCT [...] [facility] | [address] | [place] [address] | | | SERVICES, | [address] [...] + + + + | PRODUCT | [id number] | | [facility] | | | UNIT [...] + + + + | EXPIRATION | [id number] | | [facility] | | | DATE [...] + + + + | BLOOD | [id number] | | [facility] | | | PRODUCT [...] [facility] | [address] | [place] [address] | | | SERVICES, | [address] [...] + + + + | PRODUCT | [id number] | | [facility] | | | UNIT [...] + + + + | EXPIRATION | [id number] | | [facility] | | | DATE [...] + + + + | BLOOD | [id number] | | [facility] | | | PRODUCT [...] + + + + + | [facility] | [address] | [place] [address] | | | SERVICES, | [address] [...] + + + + | PRODUCT | [id number] | | [facility] | | | UNIT [...] + + + + | EXPIRATION | [id number] | | [facility] | | | DATE [...] + + + + | BLOOD | [id number] | | [facility] | | | PRODUCT [...] + + + + + | [facility] | [address] | [place] [address] | | | SERVICES, | [address] [...] + + + + | PRODUCT | [id number] | | [facility] | | | UNIT [...] + + + + | EXPIRATION | [id number] | | [facility] | | | DATE [...] + + + + | BLOOD | [id number] | | [facility] | | | PRODUCT [...] + + + + + | [facility] | [address] | [place] [address] | | | SERVICES, | [address] [...] + + + + | PRODUCT | [id number] | | [facility] | | | UNIT [...] + + + + | EXPIRATION | [id number] | | [facility] | | | DATE [...] + + + + | BLOOD | [id number] | | [facility] | | | PRODUCT [...] [facility] | [address] | [place] [address] | | | SERVICES, | [address] [...] + + + + | PRODUCT | [id number] | | [facility] | | | UNIT [...] + + + + | EXPIRATION | [id number] | | [facility] | | | DATE [...] + + + + | BLOOD | [id number] | | [facility] | | | PRODUCT [...] [facility] | [address] | [place] [address] | | | SERVICES, | [address] [...] + + + + | PRODUCT | [id number] | | [facility] | | | UNIT [...] + + + + | EXPIRATION | [id number] | | [facility] | | | DATE [...] + + + + | BLOOD | [id number] | | [facility] | | | PRODUCT [...] [facility] | [address] | [place] [address] | | | SERVICES, | [address] [...] + + + + | PRODUCT | [id number] | | [facility] | | | UNIT [...] + + + + | EXPIRATION | [id number] | | [facility] | | | DATE [...] + + + + | BLOOD | [id number] | | [facility] | | | PRODUCT [...] [facility] | [address] | [place] [address] | | | SERVICES, | [address] [...] + + + + | PRODUCT | [id number] | | [facility] | | | UNIT [...] + + + + | EXPIRATION | [id number] | | [facility] | | | DATE [...] + + + + | BLOOD | [id number] | | [facility] | | | PRODUCT [...] [facility] | [address] | [place] [address] | | | SERVICES, | [address] [...] + + + + | PRODUCT | [id number] | | [facility] | | | UNIT [...] + + + + | EXPIRATION | [id number] | | [facility] | | | DATE [...] + + + + | BLOOD | [id number] | | [facility] | | | PRODUCT [...] [facility] | [address] | [place] [address] | | | SERVICES, | [address] [...] + + + + | PRODUCT | [id number] | | [facility] | | | UNIT [...] + + + + | EXPIRATION | [id number] | | [facility] | | | DATE [...] + + + + | BLOOD | [id number] | | [facility] | | | PRODUCT [...] LABORATORY | [address] | [place] [address] | | | SERVICES, | [address] [...] + + + + | PRODUCT | [id number] | | [facility] | | | UNIT [...] + + + + | EXPIRATION | [id number] | | [facility] | | | DATE [...] + + + + | BLOOD | [id number] | | [facility] | | | PRODUCT [...] + + + + + | [facility] | [address] | [place] [address] | | | SERVICES, | [address] [...] + + + + | PRODUCT | [id number] | | [facility] | | | UNIT [...] + + + + | EXPIRATION | [id number] | | [facility] | | | DATE [...] + + + + | BLOOD | [id number] | | [facility] | | | PRODUCT [...] + + + + + | [facility] | [address] | [place] [address] | | | SERVICES, | [address] [...] + + + + | PRODUCT | [id number] | | [facility] | | | UNIT [...] + + + + | EXPIRATION | [id number] | | [facility] | | | DATE [...] + + + + | BLOOD | [id number] | | [facility] | | | PRODUCT [...] + + + + + | [facility] | [address] | [place] [address] | | | SERVICES, | [address] [...] + + + + | PRODUCT | [id number] | | [facility] | | | UNIT [...] + + + + | EXPIRATION | [id number] | | [facility] | | | DATE [...] + + + + | BLOOD | [id number] | | [facility] | | | PRODUCT [...] + + + + + | [facility] | [address] | [place] [address] | | | SERVICES, | [address] [...] + + + + | PRODUCT | [id number] | | [facility] | | | UNIT [...] + + + + | EXPIRATION | [id number] | | [facility] | | | DATE [...] + + + + | BLOOD | [id number] | | [facility] | | | PRODUCT [...] [facility] | [address] | [place] [address] | | | SERVICES, | [address] [...] + + + + | PRODUCT | [id number] | | [facility] | | | UNIT [...] + + + + | EXPIRATION | [id number] | | [facility] | | | DATE [...] + + + + | BLOOD | [id number] | | [facility] | | | PRODUCT [...] [facility] | [address] | [place] [address] | | | SERVICES, | [address] [...] + + + + + | [facility] | [address] | [place] [address] | | | SERVICES, CORE | [address] [...] | | | LABORATORY | | | [facility] | | | SERVICES, | | | [...] + + + + + | [facility] | [address] | [place] [address] | | | SERVICES, CORE | [address] [...] + + + + + | [facility] | [address] | [place] [address] | | | SERVICES, CORE | V[address] [...] [facility] | [address] | [place], [place] | | | [facility] | [address] | [address] | | | TESTS | | | | + + + + + X-RAY PORTABLE CHEST 1 VIEW (09/01/2017 9:18 AM PDT) + + | Specimen | + + | | + + + + + | Narrative | Performed At | + + + | EXAM: AL CHEST 1 VIEW HISTORY: Intubated COMPARISON: 08/31/17 [...] Note | + + | Service Account, [employer] In Interface - 09/02/2017 1:23 PM PDT EXAM: AL CHEST 1 | | VIEW HISTORY: IntubatedCOMPARISON: [...] Note | + + | Service Account, [employer] In Interface - 09/01/2017 1:40 PM [...] + + + + | PRODUCT | [id number] | | [facility] | | | UNIT [...] + + + + | EXPIRATION | [id number] | | [facility] | | | DATE [...] + + + + | BLOOD | [id number] | | [facility] | | | PRODUCT [...] [facility]ENTER [facility] | [address] | [place] [address] | | | SERVICES, | [address] [...] + + + + | PRODUCT | [id number] | | [facility] | | | UNIT [...] + + + + | EXPIRATION | [id number] | | [facility] | | | DATE [...] + + + + | BLOOD | [id number] | | [facility] | | | PRODUCT [...] [facility] | [address] | [place] [address] | | | SERVICES, | [address] [...] + + + + | PRODUCT | [id number] | | [facility] | | | UNIT [...] + + + + | EXPIRATION | [id number] | | [facility] | | | DATE [...] + + + + | BLOOD | [id number] | | [facility] | | | PRODUCT [...] [facility] | [address] | [place] [address] | | | SERVICES, | [address] [...] + + + + | PRODUCT | [id number] | | [facility] | | | UNIT [...] + + + + | EXPIRATION | [id number] | | [facility] | | | DATE [...] + + + + | BLOOD | [id number] | | [facility] | | | PRODUCT [...] [facility] | [address] | [place] [address] | | | SERVICES, | [address] [...] + + + + | PRODUCT | [id number] | | [facility] | | | UNIT [...] + + + + | EXPIRATION | [id number] | | [facility] | | | DATE [...] + + + + | BLOOD | [id number] | | [facility] | | | PRODUCT [...] [facility] | [address] | [place] [address] | | | SERVICES, | [address] [...] + + + + | PRODUCT | [id number] | | [facility] | | | UNIT [...] + + + + | EXPIRATION | [id number] | | [facility] | | | DATE [...] + + + + | BLOOD | [id number] | | [facility] | | | PRODUCT [...] [facility] | [address] | [place] [address] | | | SERVICES, | [address] [...] + + + + | PRODUCT | [id number] | | [facility] | | | UNIT [...] + + + + | EXPIRATION | [id number] | | [facility] | | | DATE [...] + + + + | BLOOD | [id number] | | [facility] | | | PRODUCT [...] [facility] | [address] | [place] [address] | | | SERVICES, | [address] [...] + + + + | PRODUCT | [id number] | | [facility] | | | UNIT [...] + + + + | EXPIRATION | [id number] | | [facility] | | | DATE [...] + + + + | BLOOD | [id number] | | [facility] | | | PRODUCT [...] | + + + + + | [facility] | [address] | [place] [address] | | | SERVICES, | [address] [...] + + + + | PRODUCT | [id number] | | [facility] | | | UNIT [...] + + + + | EXPIRATION | [id number] | | [facility] | | | DATE [...] + + + + | BLOOD | [id number] | | [facility] | | | PRODUCT [...] + + + + + | [facility] | [address] | [place] [address] | | | SERVICES, | [address] [...] CENTER LAB[facility]AT[facility] | [address] | [place] [address] | | | SERVICES, CORE | [address] [...] [facility] | [address] | [place] [address] | | | SERVICES, CORE | [address] [...] Discussed with | | | trauma ICU security intern by Dr. Yang at 4:38 AM. [...] interspinous ligament is injured.Discussed with trauma ICU security intern | | by Dr. Yang at 4:38 AM.I have personally reviewed the images and, if necessary, | | edited the report. I agree with the report as now presented. | |3. Extensive soft tissue edema extending into the cervical and upper thoracic interspinous space, suggestive of interspinous ligament is injured. | | | |Discussed with trauma ICU security intern by Dr. Yang at 4:38 AM. [...] | | | LABORATORY | | | [facility] | | | SERVICES, | | | [...] [facility] | [address] | [place] [address] | | | SERVICES, CORE | [address] [...] [facility] | [address] | [place] [address] | | | SERVICES, CORE | P[address] [...] [facility] | [address] | [place] [address] | | | SERVICES, CORE | PARK [...] + + + + + | [facility] | [address] | [place] [address] | | | SERVICES, [facility] | [address] | | | + [...] pleural spaced was performed. A 32 size Mauritanian chest tube was | | | placed [...] | ventricles. Discussed with the trauma ICU security intern at 12:12 AM by | | [...] ventricles.Discussed with | | the trauma ICU security intern at 12:[address] Yang.I [...] | | |Discussed with the trauma ICU security intern at 12:[address] Yang. [...] [facility] | [address] | [place], [place] | | | GLORIA GENAO OF [facility] | [address] | [address] | | | TESTS | | | [...] [facility] | [address] | [place] [address] | | | SERVICES, CORE | P[address] [...] [facility] | [address] | [place] [address] | | | NATALEE WORTHINGTON | [address] [...] + + + + + | [facility] | [address] | [place] [address] | | | [facility] | [address] | | | + + + + + X-RAY PORTABLE CHEST 1 VIEW (08/31/2017 7:07 PM PDT) + + | Specimen | + + | | + + + + + | Narrative | Performed At | + + + | STUDY: AL CHEST 1 VIEW HISTORY: Trauma COMPARISON: CT [...] Interface - 09/01/2017 1:44 PM PDT STUDY: AL CHEST 1 | | VIEWHISTORY: TraumaCOMPARISON: CT [...] | + + + + + | [facility] | [address] | [place] [address] | | | SERVICES, CORE | [address] [...] Note | + + | Service Account, [employer] In Interface - 08/31/2017 8:22 PM PDT [...] rib, nondisplaced-Left | | 1st rib fracture, zolyipebizcb-Xpd-claezdkkw left lateral 8th rib fracture-T12 fracture | [...] [facility] | [address] | [place] [address] | | | SERVICES, | [address] [...] [facility] | [address] | [place] [address] | | | SERVICES, | [address] [...] [facility] | [address] | [place] [address] | | | SERVICES, | [address] [...] - [facility] | [address] | [place], [place] | | | GLORIA GENAO OF [facility] | [address] | [address] | | | TESTS | | | [...] + + + | [facility] | [address] | [place], [place] | | | GLORIA GENAO OF [facility] | [facility] | [address] | | | TESTS | | | [...] [facility] | [address] | [place], [place] | | | GLORIA GENAO OF [facility] | [address] | [address] | | | TESTS | | | [...] - [facility] | [address] | [place], [place] | | | [place] OF [facility] | [address] | [address] | | | TESTS | | | [...] + + + + | PRODUCT | [id number] | | [facility] | | | UNIT [...] + + + + | EXPIRATION | [id number] | | [facility] | | | DATE [...] + + + + | BLOOD | [id number] | | [facility] | | | PRODUCT [...] [facility] | [address] | [place] [address] | | | SERVICES, | [address] [...] + + + + | PRODUCT | [id number] | | [facility] | | | UNIT [...] + + + + | EXPIRATION | [id number] | | [facility] | | | DATE [...] + + + + | BLOOD | [id number] | | [facility] | | | PRODUCT [...] [facility]ENTER [facility] | [address] | [place] [address] | | | SERVICES, | [address] [...] + + + + | PRODUCT | [id number] | | [facility] | | | UNIT [...] + + + + | EXPIRATION | [id number] | | [facility] | | | DATE [...] + + + + | BLOOD | [id number] | | [facility] | | | PRODUCT [...] + + + + + | [facility] | [address] | [place] [address] | | | SERVICES, | [address] [...] + + + + | PRODUCT | [id number] | | [facility] | | | UNIT [...] + + + + | EXPIRATION | [id number] | | [facility] | | | DATE [...] + + + + | BLOOD | [id number] | | [facility] | | | PRODUCT [...] + + + + + | [facility] | [address] | [place] [address] | | | SERVICES, | [address] [...] + + + + | PRODUCT | [id number] | | [facility] | | | UNIT [...] + + + + | EXPIRATION | [id number] | | [facility] | | | DATE [...] + + + + | BLOOD | [id number] | | [facility] | | | PRODUCT [...] + + + + + | [facility] | [address] | [place] [address] | | | SERVICES, | [address] [...] + + + + | PRODUCT | [id number] | | [facility] | | | UNIT [...] + + + + | EXPIRATION | [id number] | | [facility] | | | DATE [...] + + + + | BLOOD | [id number] | | [facility] | | | PRODUCT [...] + + + + + | [facility] | [address] | [place] [address] | | | SERVICES, | [address] [...] + + + + | PRODUCT | [id number] | | [facility] | | | UNIT [...] + + + + | EXPIRATION | [id number] | | [facility] | | | DATE [...] + + + + | BLOOD | [id number] | | [facility] | | | PRODUCT [...] [facility] | [address] | [place] [address] | | | SERVICES, | [address] [...] + + + + | PRODUCT | [id number] | | [facility] | | | UNIT [...] + + + + | EXPIRATION | [id number] | | [facility] | | | DATE [...] + + + + | BLOOD | [id number] | | [facility] | | | PRODUCT [...] [facility] | [address] | [place] [address] | | | SERVICES, | [address] [...] + + + + + | [facility] | [address] | [place] [address] | | | SERVICES, CORE | [address] [...] | | | LABORATORY | | | [facility] | | | SERVICES, | | | [...] + + + + + | [facility] | [address] | [place] [address] | | | SERVICES, CORE | PARK [...] + | [facility] | [address] | [place] [address] | | | SERVICES, CORE | [address] [...] [facility] | [address] | [place] [address] | | | SERVICES, CORE | [address] [...] + + + + + | [facility] | [address] | [place] [address] | | | SERVICES, CORE | [address] [...] + + + + + | [facility] | [address] | [place] [address] | | | SERVICES, CORE | [address] [...]
--- OUTSIDE RECORDS SUMMARY | ~2019-12-20 | XMS | Encounter Summary ---
Demographics + + + | Address | [address] | | | [place] [address] | + + + | Home Phone [...] Author | [facility] | + + + | Organization | [facility] [employer] [facility] | + [...] Team Providers + +------+ + | Care Damage Inside Adjuster Name | Role | Phone | [...] Chambers | | | | | [facility] | [address]ola [place], | | | | | Hospital Admitting | [place] [address] | | | | | Desk Located on the | [phone] | | | | | 9th floor | | | | | | [place], [place] | Patti Forte MD | | | | | [address] | [address] | | | | | | Nola Tov[facility] | | | | | | [place] [address] | | | | | | [phone] | | | | | | | [...] CRNA - 10/24/2017 3:58 PM Edel gilbert [id number] No Known Allergies History reviewed. No pertinent [...] - 10/24/2017 10:32 AM PDT [place] [facility] [id number] No Known Allergies NPO:NPO Status: >[place] Last [...] Date RATE 62 10/23/2017 ATRIALRATE 63 10/23/2017 AK 135 10/23/2017 QRS 125 10/23/2017 QT 444 [...] Able to state name, states he's in "[place]", and when asked about understanding of surgical [...] Consent PARQ discussed with: healthcare power of disability attorney and sibling, Procedures, Alternatives, R isks, and [...] risk discussed. Appropriately NPO. Moncho Arthur M.D. Database Development Project Manager-Anesthesiology and Perioperative Medicine Staff Lawn Sprinkler Installer-Cardiovascular Intensive Care Unit documented in this encounter [...] to state name, states he's i n [place]", and when asked about understanding of surgical [...]
--- OUTSIDE RECORDS SUMMARY | ~2019-12-20 | XMS | Encounter Summary ---
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 interviewed and examined the patient. I reviewed the history, as documented today. I agree with the ASHLEY assessment and plan. TBI has remained stable. On lovenox. Will continue haldol per psych.. EM CUNNINGHAM MD [facility] [address] [place] [address] [address] [place] [address] Venita Pruitt PA-C - 10/05/2017 8:38 AM [...] p atient unable to come out fo TRANSMISSION ENGINEER for now Resolved or chronic issues/Plan: [...] issues, including restraints. Venita Pruitt PA-[place] [phone] [place] [phone] [facility] [address] [place] [address] [phone] Associated attestation - Shlomo Bravo MD - 10/06/2017 7:28 AM PDTFormatting of this note m ight be different from the original. I saw and examined Diogenes Temple ([id number]) with the TRAUMA team on 10/05/2017. I [...] and incen tive spirometry for pulmonary toliet. germination testing manager for disposition planning and placement. Shlomo Bravo MD Blueprinting Machine Operator Division of Trauma and Critical Care [facility] - 10/04/2017 6:36 AM PDTFormatting [...] (baseline from previous TBI ) Neck: in Baskin collar Respiratory: CTA b.l CV: RRR GI: [...] p atient unable to come out fo TRANSMISSION ENGINEER for now Resolved or chronic issues/Plan: [...] issues, including restraints. Venita Pruitt PA-C [place] [phone] [place] [phone] [facility] [address] [place] [facility] [phone] Associated attestation - Fidelina Shields MD - [...] and only enteral access. Fidelina Shields MD Biological Photographer Division of Trauma, Critical Care and Acute Care Surgery Office: [phone] Pager: [phone] Leonor Torres ACNP - 10/03/2017 3:13 PM [...] (baseline from previous TBI ) Neck: in Baskin collar Respiratory: CTA bilaterally, no distress CV: [...] p atient unable to come out fo TRANSMISSION ENGINEER for now Resolved or chronic issues/Plan: [...] by patient, but wound remains duke n/dry/intact. Red Oak removed 09/17. #Left hemothorax Chest tube placed [...] PDTAttending: I saw and examined Diogenes Temple ([id number]) with CB Hair on morning rounds 10/03 and agree with the assessment and plan as outlined in this note and participated in the planning of care. Mental status is slightly better, remains sedated but he is interactive and at least somewh at oriented. Enteral nutrition advancing and, as approaches goal, will turn TPN off. Place ment remains a significant issue. Fidelina Shields MD Biological Photographer Division of Trauma, Critical Care and Acute Care Surgery Office: [phone] Pager: [phone] July Harp PA-C - 10/03/2017 12:58 PM [...] the C-collar when in bed then the TRANSMISSION ENGINEER when out of bed until 12/01/17. JULY HARP PA-C [facility] [address] [place] [address] Associated attestation - Magdiel Stock MD - 10/04/2017 6:02 PM PDTI performed a history a nd physical examination of the patient and discussed the management with the advanced practi ce provider, July Harp PA-C. I reviewed the advanced practice provider's note and agree w ith the plan of care as documented. Continue cervical collar and TRANSMISSION ENGINEER for 3 months to ensure fracture healing and prevent development of post-fracture cervical kyphosis. Magdiel Stock MD Biological Photographer Department of Neurological Surgery [facility] [place] Sherine Sarmiento, [facility] - 10/02/2017 12:54 PM PDTFormatting [...] (baseline from previous TBI ) Neck: in Baskin collar Respiratory: CTA bilaterally, lungs symmetrical, equal chest wall rise, no retractions CV: RRR GI: non tender, soft, active BS, last BM 09/30 : Patient voiding without difficulty Extremities: no peripheral edema, wiggles toes and toes pink and well perfused Musculoskeletal: 5/5 commodity loan clerk strength on right, 3/5 commodity loan clerk strength on left FEN: on TPN, [...] AMS & delirium - numerous evaluations by MERCURY PURIFIER with trials of PO - now s/p [...] . - C-collar at all times, use TRANSMISSION ENGINEER when OOB - Follow-up with Neurosurgery [...] will decrease [place]g [phone] Associated attestation - Fidelina Shields MD - 10/02/2017 4:40 PM PDTAttending: I saw and examined Diogenes Temple ([id number]) [facility]HAWN [facility] [place] 10/02/17 and agree with the assessment [...] place prior to DC Fidelina Shields MD Biological Photographer Division of Trauma, Critical Care and Acute Care Surgery Office: [phone] Pager: [phone] Sherine Sarmiento AGACNP - 10/01/2017 7:27 AM [...] (baseline from previous TBI ) Neck: in Baskin collar Respiratory: CTA bilaterally, lungs symmetrical, equal chest wall rise, no retractions CV: RRR GI: non tender, soft, active BS, last BM 09/30 : Patient voiding without difficulty Extremities: no peripheral edema, wiggles toes and toes pink and well perfused Musculoskeletal: 5/5 commodity loan clerk strength on right, 3/5 commodity loan clerk strength on left FEN: on TPN [...] AMS & delirium - numerous evaluations by MERCURY PURIFIER with trials of PO - now s/p modified barium swallow x2 which indicates aspiration - continue NPO - MERCURY PURIFIER reports that patient working on tongue strength [...] . - C-collar at all times, use TRANSMISSION ENGINEER when OOB - Follow-up with Neurosurgery on 10/21 with repeat X-rays #Blunt abdominal trauma #Splenic laceration S/p laparotomies x2. Fascia closed 09/02 Wound vac removed by patient, but wound remains duke n/dry/intact. Red Oak removed 09/17. #Left hemothorax Chest tube placed [...] via phone with trauma team and [place]g [phone] Associated attestation - Fidelina Shields MD - 10/02/2017 4:40 PM PDTAttending: I saw and examined Diogenes Temple ([id number]) with KESHAWN Alexander on mornin g rounds 10/01/17 and agree with the assessment and plan as outlined in this note and partic ipated in the planning of care. Will trial DHT placement today, CT head unchanged. Suspect somnolence is medication side ef fect and, if persistent, may need to wean antipsychotic doses. Fidelina Shields MD Biological Photographer Division of Trauma, Critical Care and Acute Care Surgery Office: [phone] Pager: [phone] Christian Kelley PA-C - 09/30/2017 12:21 PM [...] Fixed and dilated on left Neck: in Baskin collar Respiratory: CTA bilaterally, lungs symmetrical, equal chest wall rise, no retractions CV: RRR GI: non tender, soft, active BS, last BM 09/30 : Patient voiding without difficulty Extremities: no peripheral edema, wiggles toes and toes pink and well perfused Musculoskeletal: 5/5 commodity loan clerk strength on right, 3/5 commodity loan clerk strength on left FEN: on TPN [...] AMS & delirium - numerous evaluations by MERCURY PURIFIER with trials of PO - now s/p modified barium swallow x2 which indicates aspiration - continue NPO - MERCURY PURIFIER reports that patient working on tongue strength [...] . - C-collar at all times, use TRANSMISSION ENGINEER when OOB - Follow-up with Neurosurgery [...] PDTAttending: I saw and examined Diogenes Temple ([id number]) with Christian Kelley PA-C on morning rounds 09/30 and agree with the assessment and plan as outlined in this note and participated in the planning of care. Mentally slower this morning, but non-focal. Received haldol overnight for sleep. Repeat head CT was unchanged so suspect etiology of slowed responsiveness is the antipsychotic dose . MERCURY PURIFIER believes that, once collar off, may be able to take PO more effectively and thus will hold off on surgical feeding access. TPN is a temporary solution and if patient remains kaye nable will trial DHT tomorrow. Working with psychiatry for medication recommendations. Fidelina Shields MD Biological Photographer Division of Trauma, Critical Care and Acute Care Surgery Office: [phone] Pager: [phone] July Harp PA-C - 09/30/2017 8:23 AM PDTBrief Neurosurgery Wound Check: Wound is dry, without erythema, not fluctuant. No acute swelling. Nylon in place. Will plan to follow peripherally for wound checks and remove nylons on 10/09. JULY HARP PA-C [facility] [address] [place] [address] Christian Begum PA-C - 09/29/2017 7:15 AM [...] and EOMs intact to exam Neck: in Baskin collar Respiratory: CTA bilaterally, lungs symmetrical, equal [...] AMS & delirium - numerous evaluations by MERCURY PURIFIER with trials of PO - now s/p [...] . - C-collar at all times, use TRANSMISSION ENGINEER when OOB - Follow-up with Neurosurgery on 10/21 with repeat X-rays #Blunt abdominal trauma #Splenic laceration S/p laparotomies x2. Fascia closed 09/02 Wound vac removed by patient, but wound remains duke n/dry/intact. Red Oak removed 09/17. #Left hemothorax Chest tube placed [...] PDTAttending: I saw and examined Diogenes Temple ([id number]) with Christian Kelley PA-C on morning rounds 09/29 and agree with the assessment and plan as outlined in this note and participated in the planning of care. Late entry for 09/29/17. Persistent alterations in conscious and dysphagia. Hopefully with ongoing speech therapy a nd when clear to take c-collar off, will improve ability to take PO. While TPN is not an opt imal equipment maint tech strategy, would prefer not to place surgical feeding tube if possible given r elatively recent damage control laparotomy and high risk of Mr. Temple pulling it out. Have tried DHT several times and it seems to worsen delirium and he pulls it out frequently. Tit ration of haldol in conjunction with psychiatry. Fidelina Shields MD Biological Photographer Division of Trauma, Critical Care and Acute Care Surgery Office: [phone] Pager: [phone] Christian Kelley PA-C - 09/28/2017 1:01 PM [...] he said, who, ariel? And then the TANK TRUCK MILK RECEIVER helped him make a call to her. [...] and EOMs intact to exam Neck: in Baskin collar Respiratory: CTA bilaterally, lungs symmetrical, equal [...] very agitated today. - EKG today with [place] QTc calculated to be 428 - optimize [...] AMS & delirium - numerous evaluations by MERCURY PURIFIER with trials of PO - now s/p [...] . - C-collar at all times, use TRANSMISSION ENGINEER when OOB - Follow-up with Neurosurgery on 10/21 with repeat X-rays #Blunt abdominal trauma #Splenic laceration S/p laparotomies x2. Fascia closed 09/02 Wound vac removed by patient, but wound remains duke n/dry/intact. Red Oak removed 09/17. #Left hemothorax Chest tube placed [...] more toda y. Chaz Hernandez MD, FACS Biological Photographer, Trauma, Critical Care and Acute Care Surgery Chaz Hernandez MD - 09/28/2017 10:13 AM PDTTrauma Staff Seen and examined this AM with team. I have concerns abotu behaviour, as he is consistently threatening RN and ancillary staff, even attempting swings. Behavior seems worse at night. I would favor increasing night time Haldol dose, and following EKGs. Chaz Hernandez MD, FACS Biological Photographer, Trauma, Critical Care and Acute Care Surgery [...] Dallin Bourgeois MD Neurosurgery PGY1 | Pager #[phone] Christian Begum PA-C - 09/27/2017 7:31 AM [...] able to have a linear conversation briefly MERCURY PURIFIER requesting repeat barium swallow Current meds: I [...] incision healing , suture c/d/I Neck: in TRANSMISSION ENGINEER Respiratory: unlabored on room air, lungs [...] AMS & delirium - numerous evaluations by MERCURY PURIFIER with trials of PO - now s/p [...] . - C-collar at all times, use TRANSMISSION ENGINEER when OOB - Follow-up with Neurosurgery on 10/21 with repeat X-rays #Blunt abdominal trauma #Splenic laceration S/p laparotomies x2. Fascia closed 09/02 Wound vac removed by patient, but wound remains duke n/dry/intact. Red Oak removed 09/17. #Left hemothorax Chest tube placed [...] cotinue TPN for now. EM CUNNINGHAM MD [facility] [address] [place] [address] Christian Kelley PA-C - 09/26/2017 6:48 AM [...] posterior scalp crani incision c/d/I Neck: in Baskin collar Respiratory: unlabored on room air CV: [...] AMS & delirium - numerous evaluations by MERCURY PURIFIER with trials of PO - now s/p [...] . - C-collar at all times, use TRANSMISSION ENGINEER when OOB - Follow-up with Neurosurgery [...] Continue NPO and TPN. EM CUNNINGHAM MD [facility] [address] [place] [address] Christian Kelley PA-C - 09/25/2017 7:49 AM [...] HEENT: EOMs intact to exam Neck: in TRANSMISSION ENGINEER brace Respiratory: unlabored on room air [...] AMS & delirium - numerous evaluations by MERCURY PURIFIER with trials of PO - now s/p [...] . - C-collar at all times, use TRANSMISSION ENGINEER when OOB - Follow-up with Neurosurgery [...] LFTS wnl. Continue TPN. EM CUNNINGHAM MD [facility] [address] [place] [address] Christian Kelley PA-C - 09/24/2017 11:07 AM [...] with agitation Having difficulty swallowing again - MERCURY PURIFIER to re-eval and obtain barium swallow Current [...] HEENT: EOMs intact to exam Neck: in TRANSMISSION ENGINEER brace Respiratory: CTA bilaterally, lungs symmetrical, equal chest wall rise, no retractions CV: RRR GI: non distended, last BM 09/23 : good urine output Extremities: SCD's in place, no peripheral edema, wiggles toes and toes pink and well perfu sed Musculoskeletal: 5/5 strength in bilateral commodity loan clerk (but with slightly weaker on left) [...] PRN seroquel dose QHS for insomnia/restlessness at [facility] - Haldol 5mg q12hr prn [...] likely 2/2 AMS & delirium - Failed MERCURY PURIFIER eval 09/19 & 09/20, made NPO & dobhoff reinserted 09/21 but pulled overnight - Per MERCURY PURIFIER on 09/21, ok for therapeutic pureed with [...] . - C-collar at all times, use TRANSMISSION ENGINEER when OOB - Follow-up with Neurosurgery on 10/21 with repeat X-rays #Blunt abdominal trauma #Splenic laceration S/p laparotomies x2. Fascia closed 09/02 Wound vac removed by patient, but wound remains duke n/dry/intact. Red Oak removed 09/17. #Left hemothorax Chest tube placed [...] Start abx for dehiscence. EM CUNNINGHAM MD [facility] [address] [place] [address] Ginette Campos PA-C - 09/24/2017 9:31 AM [...] 4 extremities Unable to assess drift. Motor: [place] Machine Operator Bicep Tricep Delt R 5 5 [...] further questions or concerns. Ginette Campos PA-C [facility] [address] [place] [address] abriel Atkins stephanie Cleary, AGACNP - 09/23/2017 [...] hiscence, draining minimal serosang fluid Neck: in TRANSMISSION ENGINEER brace Respiratory: unlabored on room air [...] PRN seroquel dose QHS for insomnia/restlessness at [facility] - Repeat ECG 09/22 with [...] likely 2/2 AMS & delirium - Failed MERCURY PURIFIER eval 09/19 & 09/20, made NPO & dobhoff reinserted 09/21 but pulled overnight - Per MERCURY PURIFIER on 09/21, ok for therapeutic pureed with [...] . - C-collar at all times, use TRANSMISSION ENGINEER when OOB - Follow-up with Neurosurgery [...] dysphagia & delir ium improves Sherine Sarmiento, [facility] [place]g [phone] Dallin Deshpande MD - 09/22/2017 8:03 AM [...] Dallin Bourgeois MD Neurosurgery PGY1 | Pager #[phone] [facility] Center[facility] est[facility] - 09/22/2017 6:52 AM PDTFormatting [...] 24hr events: - Therapeutic purees initiated by MERCURY PURIFIER yesterday - Trickle feeds via Dobbhoff, pt pulled Dobbhoff yesterday evening- not replaced - HARP ACTION ASSEMBLER called around 2130 for new left facial droop (see separate notes), CT revealed increa se in SDH from 12 to 17mm with no change in midline shift. [facility] - NSG and stroke team notified [...] sluggish. Slight left facial droop Neck: in Baskin collar Respiratory: unlabored on room air CV: [...] PRN seroquel dose QHS for insomnia/restlessness at [facility]- - Repeat ECG 09/22 with Q Tc WNL. - Haldol 5mg q12hr prn for severe agitation #Substance abuse, concern for Alcohol withdrawal - CIWA discontinued 09/08, not scoring. - Thiamine & folate started 09/21 #Dysphagia, risk for aspiration #Protein calorie malnutirtion - likely 2/2 AMS & delirium - Failed MERCURY PURIFIER eval 09/19 & 09/20, made NPO & dobhoff reinserted 09/21 but pulled overnight - Per MERCURY PURIFIER on 09/21, ok for therapeutic pureed with [...] . - C-collar at all times, use TRANSMISSION ENGINEER when OOB - Follow-up with Neurosurgery on 10/21 with repeat X-rays #Blunt abdominal trauma #Splenic laceration S/p laparotomies x2. Fascia closed 09/02 Wound vac removed by patient, but wound remains duke n/dry/intact. Red Oak removed 09/17. #Left hemothorax Chest tube placed [...] when dysphagia & delirium improves Sherine Sarmiento, [facility] Pg [phone] Associated attestation - Nubia Nieto MD,MPH - 09/22/2017 9:39 PM PDTATTENDING PROGRES S NOTE I personally interviewed and examined the patient today with the trauma team and the nurse practitioner. I participated in the development of and agree with the assessment and plan a s [facility]. Adding seroquel qHS for sleep hygiene. Nubia Nieto MD, MPH Trauma, Critical Care & Acute Care Surgery [facility] [phone] Sami Black C - 09/21/2017 10:25 PM [...] in the morning. Plan: -neuro checks; page [phone] for any decline in neurological examination -pain control -Hard C collar at all times and place TRANSMISSION ENGINEER prior to mobilizing OOB. Anticipated duration of Collar/TRANSMISSION ENGINEER is 12 weeks -repeat CT head for any new decline in neurological exam and page [phone] -NPO at midnight tonight -please hold tonight's planned dose of Lovenox -further recommendations in the morning Sami Black MD, PhD PGY-3 Resident Neurosurgery [id number] signed by Sami Black at 09/21/2017 10:50 PM [facility] - 09/21/2017 7:10 AM PDTFormatting [...] Provena placem ent 24hr events: - Failed MERCURY PURIFIER eval again yest morning, continued NPO - [...] reactive. Dobbhoff tube in place Neck: in Baskin collar Respiratory: unlabored on room air CV: [...] likely 2/2 AMS & delirium - Failed MERCURY PURIFIER eval 09/19 & 09/20, made NPO & dobhoff reinserted yesterday - Trickle feeds started this am at 20ml/hr, increase very slowly by 10ml every 12 hrs to go al of 75 due to hx of mesenteric hematomas and previous inability to tolerate TF - Per MERCURY PURIFIER today, ok for therapeutic pureed with nectar [...] . - C-collar at all times, use TRANSMISSION ENGINEER when OOB - Follow-up with Neurosurgery [...] & delirium [place] [phone] Associated attestation - Fidelina Shields MD - 09/21/2017 9:36 PM PDTAttending: I saw and examined Diogenes Temple ([id number]) with KESHAWN Alexander on mornin g rounds [...] enough to re-trial PO. Fidelina Shields MD Biological Photographer Division of Trauma, Critical Care and Acute Care Surgery Office: [phone] Pager: [phone] Sherine Sarmiento AGACNP - 09/20/2017 7:41 AM [...] haldol given yesterday afternoon for agitation - MERCURY PURIFIER paged to re-eval in afternoon after concern for aspiration, made NPO by MERCURY PURIFIER - DARNELL SOLANO Current meds: I have [...] right pupil 3 and reactive Neck: in Baskin collar Respiratory: unlabored on room air CV: [...] thick/pureed d iet. Made NPO yesterday by MERCURY PURIFIER after concern for aspiration. This is likely 2/2 waxing & wan ing delirium & AMS - MERCURY PURIFIER re-eval today recommend continue NPO d/t overt clinical signs of aspiration - Place Dobbhoff tube and restart feeds, slowly progress to goal - Stop TPN when tolerating tube feeds - MERCURY PURIFIER will follow closely, as his AMS improves [...] . - C-collar at all times, use TRANSMISSION ENGINEER when OOB - Follow-up with Neurosurgery [...] & delirium [place] [phone] Associated attestation - Fidelina Shields MD - 09/20/2017 9:34 PM PDTAttending: I saw and examined Diogenes Temple ([id number]) with KESHAWN Alexander on mornin g rounds [...] dispo planning when able. Fidelina Shields MD Biological Photographer Division of Trauma, Critical Care and Acute Care Surgery Office: [phone] Pager: [phone] Mary Medrano MD,MPH - 09/19/2017 6:22 AM [...] downgraded from thin to thick liquids by MERCURY PURIFIER Current meds: I have independently reviewed current [...] intact, small Right fluctuant pseudomeningocele Neck: in Baskin collar Respiratory: unlabored on room air CV: [...] DHT on09/19. - Cleared for diet by MERCURY PURIFIER, tolerating purees, 749 Calories yesterday - Restart Calorie count: if taking >700 again will be OK for full po diet, otherwise replac e DHT and restart TF - Stop TPN tomorrow regardless - Still considering repeat CT abdomen/pelvis #Dysphagia DHTreplaced overnight 09/07. TF held due to emesis and possible ileus, aspiration risk. DH T pulled overnight on 09/18 - MERCURY PURIFIER as able Resolved or chronic issues/Plan: #BIG 3 TBI #Right synthetic cranioplasty Neurosurgery consulted. Non-operative management. Last head CT 09/12 stable. Expected pseudo meningocele. Left-sided deficits consistent with baseline. - Stat head CT for any neurologic decline #C7 bilateral lamina fractures #C6-T2 spinous process fractures Neurosurgery consulted. Non-operative management. Upright cervical X-rays completed on 09/14 . - C-collar at all times, use TRANSMISSION ENGINEER when OOB - Follow-up with Neurosurgery on 10/21 with repeat X-rays #Blunt abdominal trauma #Splenic laceration S/p laparotomies x2. Fascia closed 09/02 Wound vac removed by patient, but wound remains duke n/dry/intact. Red Oak removed 09/17. #Left hemothorax Chest tube placed [...] M.D., M.P.H. Neurological Surgery Resident PGY-1 Pager: [phone] Associated attestation - Fidelina Shields MD - 09/19/2017 1:36 PM PDTAttending: I saw and examined Diogenes Temple ([id number]) with the residents on morning rounds 09/19/17 and agree with the assessment and plan as outlined in this note and participated in the plan aashish of care. Improving po intake, will titrate TPN. Plan to DC TPN tomorrow and transition to PO vs PO + TF depending on calorie counts. Once of restraints will begin looking for placement. Fidelina Shields MD Biological Photographer Division of Trauma, Critical Care and Acute Care Surgery Office: [phone] Pager: [phone] Mary Medrano MD,MPH - 09/18/2017 6:17 AM [...] fluctuant pseudomeningocele,Dobhoff tubein p lace Neck: in Baskin collar Respiratory: unlabored on room air CV: [...] holding TF - Cleared for diet by MERCURY PURIFIER, tolerating small quantities of purees - Will need repeat CT A/P within 1-2 days #Hypervolemia I&O approaching even. Appears to have been auto-diuresing. - Continue to monitor urine output - Monitor electrolytes, replete prn #Dysphagia DHTreplaced overnight 09/07. TF held due to emesis and possible ileus, aspiration risk. - MERCURY PURIFIER as able #C7 bilateral lamina fractures #C6-T2 spinous process fractures Neurosurgery consulted. Non-operative management. Upright cervical X-rays completed on 09/14 . - C-collar at all times, use TRANSMISSION ENGINEER when OOB - Follow-up with Neurosurgery [...] by patient, but wound remains duke n/dry/intact. Red Oak removed 09/17. #Left hemothorax Chest tube placed [...] M.D., M.P.H. Neurological Surgery Resident PGY-1 Pager: [phone] signed by Fidelina Shields MD at 09/19/2017 3:58 PM PDT Associated attestation - Fidelina Shields MD - 09/19/2017 3:58 PM PDTAttending: I saw and examined Diogenes Temple ([id number]) with the residents on morning rounds 09/18/17 and agree with the assessment and plan as outlined in this note and participated in the plan aashish of care. Fidelina Shields MD Biological Photographer Division of Trauma, Critical Care and Acute Care Surgery Office: [phone] Pager: [phone] Mary Medrano MD,MPH - 09/17/2017 6:26 AM [...] fluctuant pseudomeningocele,Dobhoff tubein p lace Neck: in Baskin collar Respiratory: unlabored on room air CV: [...] holding TF - Cleared for diet by MERCURY PURIFIER, tolerating small quantities of purees #Hypervolemia I&O approaching even. Appears to have been auto-diuresing. - Continue to monitor urine output - Monitor electrolytes, replete prn #Dysphagia DHTreplaced overnight 09/07. TF held due to emesis and possible ileus, aspiration risk. - MERCURY PURIFIER as able #C7 bilateral lamina fractures #C6-T2 spinous process fractures Neurosurgery consulted. Non-operative management. Upright cervical X-rays completed on 09/14 . - C-collar at all times, use TRANSMISSION ENGINEER when OOB - Follow-up with Neurosurgery [...] M.D., M.P.H. Neurological Surgery Resident PGY-1 Pager: [phone] signed by Fidelina Shields MD at 09/17/2017 2:29 PM PDT Associated attestation - Fidelina Shields MD -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 | [place] [address] | | | SERVICES, CORE | [address] [...] LABORATORY | [address] | [place] [address] | | | NATALEE WORTHINGTON | VILMA [...] LABORATORY | [address] | [place] [address] | | | NATALEE WORTHINGTON | VILMA [...] | [address] | [place] [address] | | | SERVICES, CORE | [address] [...] the MDRD equation recommended by the | [facility] | | National Kidney Disease Education Program. [...] | + + + + + | [facility] | [address] | [place] [address] | | | SERVICES, CORE | [address] | | | + + + + + MAGNESIUM, PLASMA (11/25/2017 5:30 AM PDT) + +-------+ + + + | Component | Value | Ref Range | Performed | Pathologist | | | | | At | Signature | + +-------+ + + + | MAGNESIUM,P | 2.1 | 1.6 - 2.6 mg/dL | [facility] | | | LASMA | [...] [facility] | [address] | [place] [address] | | | ELIN, NATALEE | VILMA [...] DEPT OF | [address] | [place], [place] | | | CARDIOLOGY | [address] | [address] | | + + + + + [...] [facility] OF | [address] | [place], [place] | | | CARDIOLOGY | [address] | [address] | | + + + + + [...] DEPT OF | [address] | [place], [place] | | | CARDIOLOGY | [address] | [address] | | + + + + + [...] [facility] OF | [address] | [place], [place] | | | CARDIOLOGY | [address] | [address] | | + + + + + [...] | + + + + + | [facility] | [address] | [place] [address] | | | NATALEE WORTHINGTON | VILMA [...] | + + + + + | [facility] | [address] | [place] [address] | | | NATALEE WORTHINGTON | PARK [...] Note | + + | Service Account, Shoutfit In Interface - 11/19/2017 11:26 AM PDT [...] DEPT OF | [address] | [place], [place] | | | CARDIOLOGY | [address] | [address] | | + + + + + [...] DEPT OF | [address] | [place], [place] | | | CARDIOLOGY | [address] | [address] | | + + + + + [...] LABORATORY | [address] | [place] [address] | | | SERVICES, CORE | VILMA [...] | 09/30/2013. | LABORATORY | | | ELIN, NATALEE | + + + + + + + + | Performing | Address | City/State/Zipcode | Phone Number | | Organization | | | | + + + + + | [facility] | [address] | [place] [address] | | | SERVICES, NATALEE | [address] [...] + | [facility] - | [address] | [place] [address] | | | [place] | | | [...] LABORATORY | [address] | [place] [address] | | | SERVICES, CORE | [address] [...] | + + + + + | [facility] | [address] | [place] [address] | | | SERVICES, CORE | [address] [...] LABORATORY | [address] | [place] [address] | | | SERVICES, CORE | PARK [...] | + + + + + | [facility] | [address] | [place] [address] | | | NATALEE WORTHINGTON | VILMA [...] DEPT OF | [address] | [place], [place] | | | CARDIOLOGY | [address] | [address] | | + + + + + [...] DEPT OF | [address] | [place], [place] | | | CARDIOLOGY | [address] | [address] | | + + + + + [...] [facility] | [address] | [place] [address] | | | NATALEE WORTHINGTON | VILMA [...] + + + | ANA LILIA-HALIMA | 411 | ms | [facility] DEPT [...] OF | [address] | [place], [place] | | | CARDIOLOGY | [facility] | [address] | | + + + + + [...] | + + + + + | [facility] | [address] | [place] [address] | | | NATALEE WORTHINGTON | VILMA [...] | + + + + + | [facility] | [address] | [place] [address] | | | SERVICES, NATALEE | PARK [...] DEPT OF | [address] | [place], [place] | | | CARDIOLOGY | [address] | [address] | | + + + + + [...] | + + + + + | [facility] | [address] | [place] [address] | | | SERVICES, CORE [...] | + + + + + | [facility] | [address] | [place] [address] | | | SERVICES, CORE | PARK [...] Isabella | | | | | | Ziada [place]- [place], Med Lorraine | | | [...] + | [facility] - | [address] | [place] [address] | | | [place] | | | [...] Note | + + | Service Account, Shoutfit In Interface - 11/12/2017 1:46 PM PDT [...] DEPT OF | [address] | [place], [place] | | | CARDIOLOGY | [address] | [address] | | + + + + + [...] | + + + + + | [facility] | [address] | [place] [address] | | | NATALEE WORTHINGTON | VILMA [...] | | SERUM - | | | [place] | | | SPEP | | | [...] | | | Interpretation By: | | [facility] | | | | Abel [place], [...] | + + + + + | [facility] - | [address] | [place] [address] | | | [place] | | | [...] DEPT OF | [address] | [place], [place] | | | CARDIOLOGY | [address] | [address] | | + + + + + [...] | + + + + + | [facility] | [address] | [place] [address] | | | NATALEE WORTHINGTON | VILMA [...] + | [facility] - | [address] | [place] [address] | | | [facility] | | | | + + [...] LABORATORY | [address] | [place] [address] | | | SERVICES, CORE | PARK [...] LABORATORY | [address] | [place] [address] | | | NATALEE WORTHINGTON | VILMA [...] LABORATORY | [address] | [place] [address] | | | SERVICES, CORE | PARK [...] the MDRD equation recommended by the | [facility] | | National Kidney Disease [...] | + + + + + | [facility] | [address] | [place] [address] | | | SERVICES, CORE | [address] | | | + + + + + MAGNESIUM, PLASMA (11/11/2017 9:06 AM PDT) + +-------+ + + + | Component | Value | Ref Range | Performed | Pathologist | | | | | At | Signature | + +-------+ + + + | MAGNESIUM,P | 2.1 | 1.6 - 2.6 mg/dL | [facility] | | | LASMA | | | [...] LABORATORY | [address] | [place] [address] | | | SERVICES, NATALEE | VILMA [...] | + + + + + | [facility] | [address] | [place] [address] | | | NATALEE WORTHINGTON | PARK [...] | + + + + + | [facility] | [address] | [place] [address] | | | SERVICES, CORE | PARK [...] DEPT OF | [address] | [place], [place] | | | CARDIOLOGY | [address] | [address] | | + + + + + [...] | + + + + + | [facility] | [address] | [place] [address] | | | NATALEE WORTHINGTON | PARK [...] | + + + + + | [facility] | [address] | [place] [address] | | | SERVICES, CORE | PARK [...] LABORATORY | [address] | [place] [address] | | | SERVICES, CORE | PARK [...] the MDRD equation recommended by the | [facility] | | National Kidney Disease [...] | + + + + + | [facility] | [address] | [place] [address] | | | SERVICES, [facility] | [address] | | | + + + + + CT HEAD WO CONTRAST (11/08/2017 2:14 PM PDT) + + | Specimen | + + | | + + + + + | Narrative | Performed At | + + + | EXAM: CT HEAD WITHOUT CONTRAST HISTORY: left side hemineglect | [facility] | | COMPARISON: Outside head CT 03/12/2017. [...] Note | + + | Service Account, Dizmo Res In Interface - 11/08/2017 2:31 PM [...] the calvarium which appear similar to Nove 2016 CT. These are indeterminant. Metastatic disease [...] LABORATORY | [address] | [place] [address] | | | SERVICES, CORE | PARK [...] the MDRD equation recommended by the | [facility] | | National Kidney Disease Education Program. [...] | + + + + + | [facility] | [address] | [place] [address] | | | NATALEE WORTHINGTON | V[place] [...] | [facility] | [address] | [place], [place] | | | CARDIOLOGY | [address] | [address] | | + + + + + [...] DEPT OF | [address] | [place], [place] | | | CARDIOLOGY | [address] | [address] | | + + + + + [...] | + + + + + | [facility] | [address] | [place] [address] | | | NATALEE WORTHINGTON | VILMA [...] | + + + + + | [facility] | [address] | [place] [address] | | | NATALEE WORTHINGTON | PARK [...] + + + + | PRODUCT | [id number] | | [facility] | | | UNIT [...] + + + + | EXPIRATION | [id number] | | [facility] | | | DATE [...] + + + + | BLOOD | [id number] | | [facility] | | | PRODUCT [...] [facility] | [address] | [place] [address] | | | SERVICES, | [address] [...] + + + + | PRODUCT | [id number] | | [facility] | | | UNIT [...] + + + + | EXPIRATION | [id number] | | [facility] | | | DATE [...] + + + + | BLOOD | [id number] | | [facility] | | | PRODUCT [...] [facility] | [address] | [place] [address] | | | SERVICES, | [address] [...] | + + + + + | [facility] | [address] | [place] [address] | | | SERVICES, CORE | PARK [...] LABORATORY | [address] | [place] [address] | | | SERVICES, CORE | VILMA [...] | + + + + + | [facility] | [address] | [place] [address] | | | SERVICES, NATALEE | [address] | | | + + + + + OPERATION RECORD (11/06/2017 12:27 AM PDT) + + | Procedure Note | + + | Magdiel Stock MD - 11/06/2017 12:27 AM PDT Date of Service: 11/05/2017 Attending | | Surgeon: Magdiel Stock MD Twister In(s): Rg Aiken MD | | Preoperative Diagnoses: [...] head was placed in a horseshoe head kiln operator with his C-collar still | | [...] circumferentially around the prior incision, a #1 Rutland was used | | to subperiosteally dissect [...] note for this encounter.Sonal Nunez, | | [facility] [id number] [place], [place] | | [id number] Orina, MDJB/TAHIRLDD: 11/05/2017 20:38:01DT: 11/06/2017 | | 00:27:33Job #: [id number] | |HATTIE/DUC | | | | | | /[id number] | + + CT HEAD WO CONTRAST [...] Surgeon: Magdiel | | | MD Dayami Twister In: Rg Aiken MD Pre-op Diagnosis: | | [...] PGY-4 Neurological Surgery Pager | | | [phone] | | + + + CAPILLARY BLOOD [...] [facility] | [address] | [place], [place] | | | GLORIA GENAO OF GM | [facility] | [address] | | | TESTS | | | [...] - [facility] | [address] | [place], [place] | | | [facility]ARE | [address] | [address] | | | TESTS | | | [...] Account, Radiant Res In Interface - 11/05/2017 11:31 AM [...] LABORATORY | [address] | [place] [address] | | | NATALEE WORTHINGTON | VILMA [...] | + + + + + | [facility] | [address] | [place] [address] | | | ELIN, NATALEE | V[place] [...] | + + + + + | [facility] | [address] | [place] [address] | | | SERVICES, CORE | PARK [...] | + + + + + | [facility] | [address] | [place] [address] | | | ELIN, NATALEE | [address] [...] + + + + | PRODUCT | [id number] | | [facility] | | | UNIT [...] + + + + | EXPIRATION | [id number] | | [facility] | | | DATE [...] + + + + | BLOOD | [id number] | | [facility] | | | PRODUCT [...] LABORATORY | [address] | [place] [address] | | | SERVICES, | [address] [...] + + + + | PRODUCT | [id number] | | [facility] | | | UNIT [...] + + + + | EXPIRATION | [id number] | | [facility] | | | DATE [...] + + + + | BLOOD | [id number] | | [facility] | | | PRODUCT [...] LABORATORY | [address] | [place] [address] | | | SERVICES, | [address] [...] LABORATORY | [address] | [place] [address] | | | SERVICES, CORE | PARK [...] | + + + + + | [facility] | [address] | [place] [address] | | | SERVICES, | [address] [...] | + + + + + | [facility] | [address] | [place] [address] | | | SERVICES, | [address] [...] | + + + + + | [facility] | [address] | [place] [address] | | | ELIN, NATALEE | VILMA [...] DEPT OF | [address] | [place], [place] | | | CARDIOLOGY | [address] | [address] | | + + + + + [...] [facility] | [address] | [place] [address] | | | SERVICES, CORE | PARK [...] LABORATORY | [address] | [place] [address] | | | SERVICES, NATALEE | P[address] [...] + + + + + | [facility] - | [address] | [place] [address] | | | [place] | | | | + + + [...] LABORATORY | [address] | [place] [address] | | | SERVICES, CORE | PARK [...] (L) | 3.5 - 4.7 g/dL | [facility] | | | PLASMA | | | [...] + +---------+ + + + | [facility] CM[facility] | No Hemo | | [...] | + + + + + | [facility] | [address] | [place] [address] | | | SERVICES, CORE | VILMA [...] | + + + + + | [facility] | [address] | [place] [address] | | | SERVICES, CORE | VIL[address] [...] | + + + + + | [facility] | [address] | [place] [address] | | | SERVICES, CORE | [address] | | | + + + + + MAGNESIUM, PLASMA (11/03/2017 4:39 AM PDT) + +-------+ + + + | Component | Value | Ref Range | Performed | Pathologist | | | | | At | Signature | + +-------+ + + + | MAGNESIUM,P | 2.0 | 1.6 - 2.6 mg/dL | [facility] | | | [facility] | | | [...] LABORATORY | [address] | [place] [address] | | | SERVICES, CORE | [address] [...] | + + + + + | [facility] | [address] | [place] [address] | | | NATALEE WORTHINGTON | VILMA [...] | + + + + + | [facility] | [address] | [place] [address] | | | SERVICES, NATALEE | VILMA [...] | + + + + + | [facility] | [address] | [place] [address] | | | SERVICES, CORE | VILMA [...] DEPT OF | [address] | [place], [place] | | | CARDIOLOGY | [address] | [address] | | + + + + + [...] | + + + + + | [facility] | [address] | [place] [address] | | | SERVICES, NATALEE | [address] [...] | + + + + + | [facility] | [address] | [place] [address] | | | SERVICES, CORE | [address] [...] MD You 10/31/2017 8:21 PM Preliminary: Gage Soloomn MD | | | 10/31/2017 8:19 PM [...] + + + + + | [facility] | [address] | [place], [place] | | | CARDIOLOGY | [address] | [address] | | + + + + + [...] | + + + + + | [facility] | [address] | [place] [address] | | | SERVICES, CORE | [address]IL[address] [...] | + + + + + | [facility] | [address] | [place] [address] | | | SERVICES, CORE | V[place] [...] (H) | 70 - 99 mg/dL | [facility] - | | | GLUCOSE, [...] [facility] | [address] | [place], [place] | | | [facility] GE[facility]O OF CARE | [address] | [address] | | | TESTS | | | [...] | + + + + + | [facility] | [address] | [place] [address] | | | SERVICES, CORE | PARK [...] the MDRD equation recommended by the | [facility] | | National Kidney Disease [...] | + + + + + | [facility] | [address] | [place] [address] | | | [facility] | [...] Note | + + | Service Account, Dizmo Res In Interface - 10/29/2017 12:13 PM [...] [facility] | [address] | [place], [place] | | | [facility] | [address] | [address] | | | TESTS | | | [...] | + + + + + | [facility] | [address] | [place] [address] | | | SERVICES, NATALEE | PARK [...] | + + + + + | [facility] | [address] | [place] [address] | | | SERVICES, CORE | PARK [...] [facility] | [address] | [place] | | | [facility] CARE | [address] | [address] | | | TESTS | | | [...] OF | [address] | [place] | | | CARDIOLOGY | [address] | [address] | | + + + + + [...] [facility] | [address] | [place], [place] | | | [facility] | [address] | [address] | | | TESTS | | | [...] [facility] | [address] | [place] | | | [facility] | [address] | [address] | | | TESTS | | | [...] [facility] | [address] | [place] [address] | | | SERVICES, NATALEE | [address] [...] + + + + + | [facility] - | [address] | [place] [address] | | | [facility] | | | | + + [...] LABORATORY | [address] | [place] [address] | | | SERVICES, CORE | PARK [...] LABORATORY | [address] | [place] [address] | | | NATALEE WORTHINGTON | PARK [...] | + + + + + | [facility] | [address] | [place] [address] | | | SERVICES, CORE | VILMA [...] | + + + + + | [facility] | [address] | [place] [address] | | | ELIN, NATALEE | [address] | | | + + + + + MAGNESIUM, PLASMA (10/28/2017 5:29 AM PDT) + +-------+ + + + | Component | Value | Ref Range | Performed | Pathologist | | | | | At | Signature | + +-------+ + + + | MAGNESIUM,P | 1.8 | 1.6 - 2.6 mg/dL | [facility] | | | [facility] | | | [...] LABORATORY | [address] | [place] [address] | | | NATALEE WORTHINGTON | VILMA [...] [facility] | [address] | [place] | | | GLORIA GENAO OF [facility] | [facility] | [address] | | | TESTS | | | [...] [facility] | [address] | [place] | | | [facility] | [address] | [address] | | | TESTS | | | [...] | | patient, procedure, equipment, field support rep and site/side marked as | | | [...] vein. Catheter lot number: | | | [id number] with a length of 55 cm was [...] | [facility] | [address] | [place], [place] | | | [facility] GE[facility] CARE | [address] | [address] | | | TESTS | | | [...] + + + + | [facility] | 468 | ms | [facility] [...] DEPT OF | [address] | [place], [place] | | | CARDIOLOGY | [address] | [address] | | + + + + + [...] [facility] | [address] | [place] | | | [facility] CARE | [facility] | [address] | | | TESTS | | | [...] LABORATORY | [address] | [place] [address] | | | NATALEE WORTHINGTON | VILMA [...] 9 | 4 - 11 mmol/L | [facility] [...] | + + + + + | [facility] | [address] | [place] [address] | | | SERVICES, CORE | VILMA [...] [facility] | [address] | [place] | | | [facility] GE[facility] CARE | [facility] | [address] | | | TESTS | | | [...] (H) | 70 - 99 mg/dL | [facility] - | | | GLUCOSE, [...] [facility] | [address] | [place] | | | [facility] | [address] | [address] | | | TESTS | | | [...] [facility] | [address] | [place] | | | GLORIA GENAO OF [facility] | [facility] | [address] | | | TESTS | | | [...] | + + + + + | [facility] | [address] | [place] [address] | | | SERVICES, CORE | VILMA [...] | + + + + + | [facility] | [address] | [place] [address] | | | SERVICES, CORE [...] (H) | 70 - 99 mg/dL | [facility] - | | | GLUCOSE, | | [...] [facility] | [address] | [place] | | | [facility] | [address] | [address] | | | TESTS | | | [...] | + + + + + | [facility] | [address] | [place] [address] | | | SERVICES, CORE | PARK [...] RAP[facility]EL[facility] | [address] | [place] | | | [facility] CARE | [address] | [address] | | | TESTS | | | [...] OF | [address] | [place], [place] | | | CARDIOLOGY | [facility] | [address] | | + + + + + [...] - [facility] | [address] | [place] | | | [facility] | [address] | [address] | | | TESTS | | | [...] DEPT OF | [address] | [place], [place] | | | CARDIOLOGY | [address] | [address] | | + + + + + [...] | + + + + + | [facility] | [address] | [place] [address] | | | SERVICES, CORE | [address] [...] + | [facility] - | [address] | [place] [address] | | | [place] | | | [...] LABORATORY | [address] | [place] [address] | | | NATALEE WORTHINGTON | VILMA [...] LABORATORY | [address] | [place] [address] | | | SERVICES, CORE | [address] | | | + + + + + TRIGLYCERIDES, PLASMA (10/24/2017 4:45 PM PDT) + +-------+ + + + | Component | Value | Ref Range | Performed | Pathologist | | | | | At | Signature | + +-------+ + + + | TRIGLYCERID | 93 | <150 mg/dL | [facility] | | | ES | | | [...] [facility] | [address] | [place] [address] | | | SERVICES, CORE | [address] [...] | + + + + + | [facility] | [address] | [place] [address] | | | SERVICES, CORE | [address] [...] [facility] | [address] | [place] [address] | | | SERVICES, CORE | [address]IL[address] [...] | + + + + + | [facility] | [address] | [place] [address] | | | SERVICES, CORE | VILMA [...] LABORATORY | [address] | [place] [address] | | | SERVICES, CORE | PARK [...] + | [facility] | [address] | [place] [address] | | | SERVICES, CORE | [address]ARK [...] | + + + + + | [facility] | [address] | [place] [address] | | | SERVICES, CORE | VIL[address] [...] | + + + + + | [facility] | [address] | [place] [address] | | | SERVICES, CORE | VILMA [...] | + + + + + | [facility] | [address] | [place] [address] | | | SERVICES, CORE | [address] [...] | correct patient, procedure, equipment, field support rep and site/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 Catheter lot number: [id number] with a length of 55 | | [...] [facility] | [address] | [place], [place] | | | [facility] | [address] | [address] | | | TESTS | | | [...] | | Surgical Critical Care, PGY7 Pager: [phone] | | + + + CAPILLARY BLOOD [...] [facility] | [address] | [place] | | | [facility] | [address] | [address] | | | TESTS | | | [...] | [facility] | [address] | [place] | | | [facility] | [address] | [address] | | | TESTS | | | [...] | + + + + + | [facility] | [address] | [place] [address] | | | SERVICES, CORE | [address] | | | + + + + + MAGNESIUM, PLASMA (10/24/2017 5:08 AM PDT) + +-------+ + + + | Component | Value | Ref Range | Performed | Pathologist | | | | | At | Signature | + +-------+ + + + | MAGNESIUM,P | 1.7 | 1.6 - 2.6 mg/dL | [facility] | | | [facility] | | | [...] LABORATORY | [address] | [place] [address] | | | ELIN, NATALEE | [address]ILMA [...] [facility] | [address] | [place] | | | [facility] | [facility] | [address] | | | TESTS | | | [...] LABORATORY | [address] | [place] [address] | | | SERVICES, CORE | [address] [...] | + + + + + | [facility] | [address] | [place] [address] | | | NATALEE WORTHINGTON | VILMA [...] DEPT OF | [address] | [place], [place] | | | CARDIOLOGY | [address] | [address] | | + + + + + IR GASTROSTOMY TUBE EXCHANGE (10/22/2017 2:42 PM PDT) + + | Specimen | + + | | + + + + + | Narrative | Performed At | + + + | Procedure: Gastrostomy tube exchange Primary attending | [facility] | | computer animator: Shade Nix M.D. Preoperative diagnosis: | RADIOLOGY VOICE | | Malfunctioning Gastrostomy tube Postoperative diagnosis: Same | RECOGNITION | | Operations: Operation 1. Removal of existing Gastrostomy tube | | | over a guide wire Operation 2. Placement of 24 Solomon Islander GABRIEL | | | gastrostomy over guide [...] a stiff glide wire the new 24 [place] Islander gastrostomy tube was | | | inserted. [...] Procedure: | | Gastrostomy tube exchangePrimary attending computer animator: Shade Nix | | BrynPreoperative diagnosis: Malfunctioning Gastrostomy tubePostoperative diagnosis: | | SameOperations:Operation 1. Removal of existing Gastrostomy tube over a guide | | wireOperation 2. Placement of 24 [place] Islander GABRIEL gastrostomy over guide wireNo sedation [...] glide wire the | | new 24 [place]er gastrostomy tube was inserted. The position [...] stiff g lide wire the new 24 [place] Islander | |gastrostomy tube was inserted. The [...] Note | + + | Service Account, HeribertoArccos Golf Res In Interface - 10/22/2017 10:34 AM [...] DEPT OF | [address] | [place], [place] | | | CARDIOLOGY | [address] | [address] | | + + + + + [...] LABORATORY | [address] | [place] [address] | | | NATALEE WORTHINGTON | [place] [...] | + + + + + | [facility] | [address] | [place] [address] | | | SERVICES, NATALEE | [place] [...] DEPT OF | [address] | [place], [place] | | | CARDIOLOGY | [address] | [address] | | + + + + + [...] | + + + + + | [facility] | [address] | [place] [address] | | | NATALEE WORTHINGTON | [place] [...] | + + + + + | [facility] | [address] | [place] [address] | | | SERVICES, CORE | [address] [...] + + + | ANA LILIA-HALIMA | 438 | ms | [facility] DE[facility] [...] GEET OF | [address] | [place], [place] | | | CARDIOLOGY | [facility] | [address] | | + + + + + [...] [facility] | [address] | [place] [address] | | | SERVICES, CORE | [place] [...] | + + + + + | [facility] | [address] | [place] [address] | | | SERVICES, CORE [...] DEPT OF | [address] | [place], [place] | | | CARDIOLOGY | [address] | [address] | | + + + + + [...] (H) | 4 - 11 mmol/L | [facility] | | | GAP(ALB | | [...] | + + + + + | [facility] | [address] | [place] [address] | | | SERVICES, CORE | [place] [...] | + + + + + | [facility] | [address] | [place] [address] | | | SERVICES, CORE | V[place] [...] + + + + | QTC-SAURABHTT | 476 | ms | [facility] DEPT [...] | [facility] | [address] | [place], [place] | | | CARDIOLOGY | [address] | [address] | | + + + + + [...] | + + + + + | [facility] | [address] | [place] [address] | | | SERVICES, CORE | [address] [...] | + + + + + | [facility] | [address] | [place] [address] | | | NATALEE WORTHINGTON | [place] [...] Note | + + | Service Account, Shoutfit In Interface - 10/15/2017 3:58 PM PDT [...] DEPT OF | [address] | [place], [place] | | | CARDIOLOGY | [address] | [address] | | + + + + + [...] | [address] | [place], [place] | | | [facility] | [address] | [address] | | | TESTS | | | [...] | + + + + + | [facility] | [address] | [place] [address] | | | NATALEE WORTHINGTON | [address] [...] (H) | 70 - 99 mg/dL | [facility] - | | | GLUCOSE, [...] [facility] | [address] | [place], [place] | | | [facility] | [address] | [address] | | | TESTS | | | [...] DEPT OF | [address] | [place], [place] | | | CARDIOLOGY | [address] | [address] | | + + + + + [...] LABORATORY | [address] | [place] [address] | | | SERVICES, CORE | PARK [...] the MDRD equation recommended by the | [facility] | | National Kidney Disease [...] | + + + + + | [facility] | [address] | [place] [address] | | | SERVICES, CORE | [address] | | | + + + + + MAGNESIUM, PLASMA (10/14/2017 4:53 AM PDT) + +-------+ + + + | Component | Value | Ref Range | Performed | Pathologist | | | | | At | Signature | + +-------+ + + + | MAGNESIUM,P | 1.7 | 1.6 - 2.6 mg/dL | [facility] | | | LISA | | | [...] LABORATORY | [address] | [place] [address] | | | SERVICES, NATALEE | VILMA [...] - [facility] | [address] | [place], [place] | | | [facility] | [address] | [address] | | | TESTS | | | [...] PICKETT | [address] | [place], [place] | | | [facility] | [address] | [address] | | | TESTS | | | [...] LABORATORY | [address] | [place] [address] | | | NATALEE WORTHINGTON | VILMA [...] | + + + + + | [facility] | [address] | [place] [address] | | | NATALEE WORTHINGTON | [address] | | | + + + + + OPERATION RECORD (10/12/2017 8:50 PM PDT) + + | Procedure Note | + + | Pilar Cotto MD - 10/12/2017 8:50 PM PDT Date of Service: 10/12/2017 | | Attending Surgeon: Chaz Hernandez MD Twister In(s): Randell Dixon M.D., | | fellow. George [...] saline. We then | | placed a 19-Solomon Islander drain deep into the abscess cavity, [...] the case. Pilar Cotto, | | Edi Hernandez MDKMW/MODLDD: 10/12/2017 19:50:06DT: 10/12/2017 20:50:54Job #: | | [id number] | + + X-RAY PORTABLE CHEST 1 [...] + + + + | [facility] | [address] | [place], [place] | | | [facility] | [address] | [address] | | | TESTS | | | [...] report as now presented. Final signature: Espinoza Tim | | | MD Daniel 10/12/2017 5:04 [...] | + + + + + | [facility] | [address] | [place] [address] | | | SERVICES, CORE | PARK [...] | + + + + + | [facility] | [address] | [place] [address] | | | SERVICES, CORE | VILMA [...] | + + + + + | [facility] | [address] | [place] [address] | | | SERVICES, CORE | [address] | | | + + + + + 12 LEAD ECG (10/11/2017 12:50 PM PDT) + + + + + + | Component | Value | Ref Range | Performed | Pathologist | | | | | At | Signature | + + + + + + | VENTRICULAR | 119 | bpm | [facility] DEPT | | | RATE | [...] + + | [facility] OF | [address] | [place], [place] | | | CARDIOLOGY | [address] | [address] | | + + + + + [...] + + | [facility] | 477 | ms | [facility] DEPT [...] | [facility] | [address] | [place], [place] | | | CARDIOLOGY | [address] | [address] | | + + + + + [...] | + + + + + | [facility] | [address] | [place] [address] | | | ELIN, NATALEE | VILMA [...] | + + + + + | [facility] | [address] | [place] [address] | | | SERVICES, CORE | VILMA [...] | + + + + + | [facility] | [address] | [place] [address] | | | SERVICES, [facility] | [address] | | | + + + + + PROCEDURE NOTE (10/10/2017 10:00 PM PDT) + + + | Narrative | Performed At | + + + | Darius Link MD 10/12/2017 11:11 AM OPERATIVE REPORT | | | DATE OF OPERATION: 10/10/2017 ATTENDING SURGEON: 1. Dr. Hernandez | | | WAREHOUSE MANAGER: 1. Darius Link MD INDICATIONS: Dysphagia | | | and need for senior care nutrition access PREOPERATIVE DIAGNOSIS: | | | 1.Dysphagia and need for senior care nutrition access | | | POSTOPERATIVE DIAGNOSIS: [...] Nikolay Attending Physician: Dr. Hernandez Assistants: Darius Radford | | Nikolay At (time), prior to [...] | | | [place] [address] Chief Resident | | | Neurosurgery | [...] | + + + + + | [facility] | [address] | [place] [address] | | | NATALEE WORTHINGTON | [address] [...] | + + + + + | [facility] | [address] | [place] [address] | | | SERVICES, CORE | [address] [...] | + + + + + | [facility] | [address] | [place] [address] | | | ELIN, NATALEE | [address] | | | + + + + + OPERATION RECORD (10/10/2017 12:40 PM PDT) + + | Procedure Note | + + | Magdiel Stock MD - 10/10/2017 12:40 PM PDT Date of Service: 10/10/2017 Attending | | Surgeon: Magdiel Stock MD Twister In(s): Cecilia Jackson | | . Preoperative Diagnoses: [...] This is a 67-year-old male. Please see [facility] for full details. He | [...] | the note for this encounter.Sonal Nunez MD[address] [facility] | | [place] [id number] Orina, MDFAH/MODDIOND: | | 10/10/2017 11:52:15DT: 10/10/2017 12:40:41Job #: [id number] | | | | | |I was present for the critical portions of the procedure as described in the note for this encounter. | | | |Magdiel Stock MD | | | |Magdiel Stock MD | |[address] | |[address] | |[facility] | |[place] [address] | |[phone] | | | | | |Magdiel Stock MD | |JAYLAN/DUC | | | | | | /[id number] | + + X-RAY ABDOMEN 1 VIEW [...] + | [facility] - | [address] | [place] [address] | | | [place] | | | | + + + [...] + + + + | [facility] | [address] | [place] [address] | | | [place] | | | [...] + | [facility] - | [address] | [place] [address] | | | [facility] | | | | + + [...] + | [facility] - | [address] | [place] [address] | | | [place] | | | [...] + | [facility] - | [address] | [place] [address] | | | [place] | | | [...] Gram Stain: No squamous epithelial cells | [place] | | Many polymorphonuclear cells No organisms seen | | + + + + + + + + | Performing | Address | City/State/Zipcode | Phone Number | | Organization | | | | + + + + + | [facility] - | [address] | [place] [address] | | | [place] | | | | + + + [...] detected | [facility] - | | | [place] | + + + + + + + + | Performing | Address | City/State/Zipcode | Phone Number | | Organization | | | | + + + + + | [facility] - | [address] | [place] [address] | | | [place] | | | [...] Gram Stain: No squamous epithelial cells | [facility] | | Few polymorphonuclear cells No organisms seen | | + + + + + + + + | Performing | Address | City/State/Zipcode | Phone Number | | Organization | | | | + + + + + | [facility] - | [address] | [place] [address] | | | [place] | | | | + + + [...] + | [facility] - | [address] | [place] [address] | | | [place] | | | [...] + | [facility] - | [address] | [place] [address] | | | [place] | | | [...] + | [facility] - | [address] | [place] [address] | | | [place] | | | | + + + [...] + | [facility] - | [address] | [place] [address] | | | [place] | | | | + + + [...] + | [facility] - | [address] | [place] [address] | | | [place] | | | [...] Gram Stain: No squamous epithelial cells | [place] | | Moderate polymorphonuclear cells No organisms seen | | + + + + + + + + | Performing | Address | City/State/Zipcode | Phone Number | | Organization | | | | + + + + + | [facility] - | [address] | [place] [address] | | | [place] | | | [...] detected | [facility] - | | | [place] | + + + + + + + + | Performing | Address | City/State/Zipcode | Phone Number | | Organization | | | | + + + + + | [facility] - | [address] | [place] [address] | | | [place] | | | [...] + | [facility] | [address] | [place] [address] | | | [place] | | | | + + + [...] 1+ Pseudomonas aeruginosa Refer to culture | [facility] - | | collected 10/10/17 at 0903 for susceptibilities No anaerobic | [facility] - | | organisms isolated Gram Stain: No squamous epithelial cells | [place] | | Moderate polymorphonuclear cells No organisms seen | | + + + + + + + + | Performing | Address | City/State/Zipcode | Phone Number | | Organization | | | | + + + + + | [facility] | [address] | [place] [address] | | | [place] | | | | + + + [...] | [facility] - | | | [facility] | + + + + + + + + | Performing | Address | City/State/Zipcode | Phone Number | | Organization | | | | + + + + + | [facility] - | [address] | [place] [address] | | | [place] | | | [...] LABORATORY | [address] | [place] [address] | | | SERVICES, CORE | PARK [...] | + + + + + | [facility] | [address] | [place] [address] | | | SERVICES, CORE | [address] [...] LABORATORY | [address] | [place] [address] | | | SERVICES, CORE | [address] [...] the MDRD equation recommended by the | [facility] | | National Kidney Disease [...] | + + + + + | [facility] | [address] | [place] [address] | | | ELIN, NATALEE | VILMA [...] DEPT OF | [address] | [place], [place] | | | CARDIOLOGY | [address] | [address] | | + + + + + [...] + + + + | PRODUCT | [id number] | | [facility] | | | UNIT [...] + + + + | EXPIRATION | [id number] | | [facility] | | | DATE [...] + + + + | BLOOD | [id number] | | [facility] | | | PRODUCT [...] | + + + + + | [facility] | [address] | [place] [address] | | | SERVICES, | [address] [...] + + + + | PRODUCT | [id number] | | [facility] | | | UNIT [...] + + + + | EXPIRATION | [id number] | | [facility] | | | DATE [...] + + + + | BLOOD | [id number] | | [facility] | | | PRODUCT [...] LABORATORY | [address] | [place] [address] | | | SERVICES, | [address] [...] LABORATORY | [address] | [place] [address] | | | SERVICES, | [address] [...] | + + + + + | [facility] | [address] | [place] [address] | | | SERVICES, | [address] [...] LABORATORY | [address] | [place] [address] | | | SERVICES, | [address] [...] | + + + + + | [facility] | [address] | [place] [address] | | | [facility], [facility] [place] | [address] | | | + [...] | [facility]PT OF | [address] | [place], [place] | | | CARDIOLOGY | [address] | [address] | | + + + + + [...] Note | + + | Service Account, Dizmo Res In Interface - 10/08/2017 10:47 AM [...] | [address] | [place], [place] | | | [facility] | [facility] | [address] | | | TESTS | | | [...] LABORATORY | [address] | [place] [address] | | | SERVICES, CORE | PARK [...] LABORATORY | [address] | [place] [address] | | | SERVICES, CORE | [address] [...] the MDRD equation recommended by the | [facility] | | National Kidney Disease Education Program. [...] | + + + + + | [facility] | [address] | [place] [address] | | | NATALEE WORTHINGTON | [address] [...] - [facility] | [address] | [place], [place] | | | [facility] | [address] | [address] | | | TESTS | | | [...] [facility] | [address] | [place], [place] | | | [facility] | [address] | [address] | | | TESTS | | | [...] [facility] | [address] | [place], [place] | | | [facility] | [address] | [address] | | | TESTS | | | [...] - [facility] | [address] | [place], [place] | | | [facility] | [address] | [address] | | | TESTS | | | [...] [facility] | [address] | [place], [place] | | | [facility] | [address] | [address] | | | TESTS | | | [...] LABORATORY | [address] | [place] [address] | | | NATALEE WORTHINGTON | [address] [...] | + + + + + | [facility] | [address] | [place] [address] | | | NATALEE WORTHINGTON | [address] [...] | + + + + + | [facility] | [address] | [place] [address] | | | SERVICES, CORE | VILMA [...] [facility] | [address] | [place], [place] | | | [facility] | [address] | [address] | | | TESTS | | | [...] [facility] | [address] | [place] | | | [facility] | [address] | [address] | | | TESTS | | | [...] DEPT OF | [address] | [place], [place] | | | CARDIOLOGY | [address] | [address] | | + + + + + [...] [facility] | [address] | [place], [place] | | | [facility] | [facility] | [address] | | | TESTS | | | [...] | + + + + + | [facility] | [address] | [place] [address] | | | SERVICES, CORE | [address] | | | + + + + + MAGNESIUM, PLASMA (10/06/2017 7:25 AM PDT) + +-------+ + + + | Component | Value | Ref Range | Performed | Pathologist | | | | | At | Signature | + +-------+ + + + | MAGNESIUM,P | 2.0 | 1.6 - 2.6 mg/dL | [facility] | | | [facility] | | | [...] LABORATORY | [address] | [place] [address] | | | ELIN, NATALEE | [address] [...] | + + + + + | [facility] | [address] | [place] [address] | | | SERVICES, CORE | VILMA [...] [facility] | [address] | [place], [place] | | | [facility] | [address] | [address] | | | TESTS | | | [...] - [facility] | [address] | [place] | | | [facility] | [address] | [address] | | | TESTS | | | [...] [facility] | [address] | [place], [place] | | | [facility] | [address] | [address] | | | TESTS | | | [...] [facility] | [address] | [place], [place] | | | [facility] | [address] | [address] | | | TESTS | | | [...] DEPT OF | [address] | [place], [place] | | | CARDIOLOGY | [address] | [address] | | + + + + + [...] [facility] | [address] | [place] [address] | | | NATALEE WORTHINGTON | [address] [...] | + + + + + | [facility] | [address] | [place] [address] | | | SERVICES, CORE | [address]ARK [...] | + + + + + | [facility] | [address] | [place] [address] | | | SERVICES, CORE | [address]ARK [...] (H) | 70 - 99 mg/dL | [facility] - | | | GLUCOSE, | | [...] [facility] | [address] | [place], [place] | | | [facility] | [facility] | [address] | | | TESTS | | | [...] | [address] | [place] | | | [facility]ARE | [facility] | [address] | | | TESTS | | | [...] (H) | 70 - 99 mg/dL | [facility] - | | | GLUCOSE, [...] | [address] | [place] | | | [facility] | [address] | [address] | | | TESTS | | | [...] [facility] | [address] | [place] | | | [facility] | [facility] | [address] | | | TESTS | | | [...] [facility]EL[facility] | [address] | [place] | | | [facility] | [facility] | [address] | | | TESTS | | | [...] | + + + + + | [facility] | [address] | [place] [address] | | | SERVICES, CORE | PARK [...] LABORATORY | [address] | [place] [address] | | | SERVICES, CORE | PARK [...] the MDRD equation recommended by the | [facility] | | National Kidney Disease [...] | + + + + + | [facility] | [address] | [place] [address] | | | SERVICES, CORE | VILMA [...] [facility] | [address] | [place], [place] | | | [facility] | [address] | [address] | | | TESTS | | | [...] [facility] | [address] | [place], [place] | | | [facility] | [address] | [address] | | | TESTS | | | [...] LABORATORY | [address] | [place] [address] | | | SERVICES, CORE | [address]ARK [...] by | | | | | | [employer],[address] | | | | | | Rogelio Pickard, [facility] [place] | | | | | | [phone] | | | | | | [phone]. | | | | | | Gui [...] [facility] | [address] | [place], [place] | | | [facility] | | [address] | | + + + + + [...] | + + + + + | [facility] | [address] | [place] [address] | | | SERVICES, CORE | [address]IL[address] [...] | + + + + + | [facility] | [address] | [place] [address] | | | SERVICES, CORE | [address] [...] modified from | [facility] | | original storage management consultant's approved specifications. The performance | LABORATORY | | of the MANUFACTURING BUSINESS ANALYST HIV Combo test, with or without confirmation, was not | SERVICES, | | tested in pediatric patients less than 2 years of age. [facility] | SPECIAL IMM + | | [...] | + + + + + | [facility] | [address] | [place] [address] | | | SERVICES, SPECIAL | [address] [...] [facility] | [address] | [place], [place] | | | [facility] | [address] | [address] | | | TESTS | | | [...] - [facility] | [address] | [place] | | | [facility] | [address] | [address] | | | TESTS | | | [...] | + + + + + | [facility] | [address] | [place] [address] | | | NATALEE WORTHIGNTON | [address] | | | + [...] | + + + + + | [facility] | [address] | [place] [address] | | | SERVICES, CORE | [address] [...] | + + + + + | [facility] | [address] | [place] [address] | | | SERVICES, CORE | VILMA [...] [facility] | [address] | [place] | | | [facility] | [address] | [address] | | | TESTS | | | [...] RAPHAELAM | [address] | [place] | | | [facility] | [address] | [address] | | | TESTS | | | [...] DEPT OF | [address] | [place], [place] | | | CARDIOLOGY | [address] | [address] | | + + + + + [...] Note | + + | Service Account, Dizmo Res In Interface - 10/02/2017 2:07 PM [...] [facility] | [address] | [place], [place] | | | [facility] | [address] | [address] | | | TESTS | | | [...] [facility]T | [address] | [place], [place] | | | [facility]O [facility] | [facility] | [address] | | | TESTS | | | [...] | + + + + + | [facility] | [address] | [place] [address] | | | SERVICES, CORE | [address] | | | + + + + + MAGNESIUM, PLASMA (10/02/2017 5:12 AM PDT) + +-------+ + + + | Component | Value | Ref Range | Performed | Pathologist | | | | | At | Signature | + +-------+ + + + | MAGNESIUM,P | 2.1 | 1.6 - 2.6 mg/dL | [facility] | | | LASMA | [...] LABORATORY | [address] | [place] [address] | | | SERVICES, NATALEE | [address]IL[address] [...] | + + + + + | [facility] | [address] | [place] [address] | | | SERVICES, CORE | VILMA [...] [facility] | [address] | [place] | | | [facility] | [address] | [address] | | | TESTS | | | [...] [facility] | [address] | [place] | | | [facility] | [address] | [address] | | | TESTS | | | [...] Note | + + | Service Account, Dizmo Res In Interface - 10/01/2017 2:15 PM [...] [facility] | [address] | [place] | | | [facility] | [address] | [address] | | | TESTS | | | [...] Note | + + | Service Account, Dizmo Res In Interface - 10/01/2017 11:34 AM [...] [facility] | [address] | [place] | | | [facility] OF CARE | [address] | [address] | | | TESTS | | | [...] | + + + + + | [facility] | [address] | [place] [address] | | | SERVICES, CORE | [address]ARK [...] [facility] | [address] | [place] [address] | | | NATALEE WORTHINGTON | VILMA [...] | + + + + + | [facility] | [address] | [place] [address] | | | SERVICES, CORE | VILMA [...] | [facility] | [address] | [place] | | | [facility]IA GENAO OF [facility] | [facility] | [address] | | | TESTS | | | [...] (H) | 70 - 99 mg/dL | [facility] - | | | GLUCOSE, [...] [facility] | [address] | [place] | | | [facility] | [address] | [address] | | | TESTS | | | [...] DEPT OF | [address] | [place], [place] | | | CARDIOLOGY | [address] | [address] | | + + + + + [...] MARQUAM | [address] | [place], [place] | | | [facility] | [address] | [address] | | | TESTS | | | [...] - PIYUSH | [address] | [place], [place] | | | [place] [facility]INT OF CARE | [address] | [address] | | | TESTS | | | [...] [facility] | [address] | [place] [address] | | | SERVICES, NATALEE | VILMA [...] | + + + + + | [facility] | [address] | [place] [address] | | | SERVICES, CORE | VILMA [...] | + + + + + | [facility] | [address] | [place] [address] | | | SERVICES, CORE | VILMA [...] (H) | 70 - 99 mg/dL | [facility] - | | | GLUCOSE, | | [...] PICKETT | [address] | [place], [place] | | | GLORIA GENAO OF CARE | [address] | [address] | | | TESTS | | | [...] MARQUAM | [address] | [place], [place] | | | GLORIA GENAO OF CARE | [address] | [address] | | | TESTS | | | [...] PIYUSH | [address] | [place], [place] | | | [place] OF [facility] | [address] | [address] | | | TESTS | | | [...] + + + + | [facility]TC-BABRAYDONTT | 442 | ms | [facility] [...] | + + + + + | [facility] | [address] | [place], [place] | | | CARDIOLOGY | [address] | [address] | | + + + + + [...] MARQUAM | [address] | [place], [place] | | | GLORIA GENAO OF [facility] | [address] | [address] | | | TESTS | | | [...] [facility] | [address] | [place] [address] | | | SERVICES, NATALEE | VILMA [...] | + + + + + | [facility] | [address] | [place] [address] | | | SERVICES, CORE | VILMA [...] [facility] | [address] | [place] [address] | | | NATALEE [place] | VILMA [...] MARQUAM | [address] | [place] | | | [facility] | [address] | [address] | | | TESTS | | | [...] PICKETT | [address] | [place], [place] | | | [facility] | [address] | [address] | | | TESTS | | | [...] MARQUAM | [address] | [place], [place] | | | [facility] | [address] | [address] | | | TESTS | | | [...] DEPT OF | [address] | [place], [place] | | | CARDIOLOGY | [address] | [address] | | + + + + + [...] | [address] | [place], [place] | | | GLORIA GENAO OF [facility] | [address] | [address] | | | TESTS | | | [...] | + + + + + | [facility] | [address] | [place] [address] | | | SERVICES, CORE | [address] | | | + + + + + MAGNESIUM, PLASMA (09/28/2017 4:58 AM PDT) + +-------+ + + + | Component | Value | Ref Range | Performed | Pathologist | | | | | At | Signature | + +-------+ + + + | MAGNESIUM,P | 2.1 | 1.6 - 2.6 mg/dL | [facility] | | | LASMA | | | [...] [facility] | [address] | [place] [address] | | | SERVICES, NATALEE | VILMA [...] 8 | 4 - 11 mmol/L | [facility] [...] | + + + + + | [facility] | [address] | [place] [address] | | | SERVICES, NATALEE | VILMA [...] [facility] | [address] | [place], [place] | | | [facility] | [facility] | [address] | | | TESTS | | | [...] (H) | 70 - 99 mg/dL | [facility] - | | | GLUCOSE, [...] [facility] | [address] | [place], [place] | | | [facility] OF [facility] | [address] | [address] | | | TESTS | | | [...] poorly cleared with dry swallows. Please see [facility] pathology report for full details | | [...] | [address] | [place], [place] | | | [facility] | [address] | [address] | | | TESTS | | | [...] P[facility] | [address] | [place], [place] | | | [facility] | [address] | [address] | | | TESTS | | | [...] | + + + + + | [facility] | [address] | [place] [address] | | | NATALEE WORTHINGTON | VILMA [...] | + + + + + | [facility] | [address] | [place] [address] | | | NATALEE WORTHINGTON | VILMA [...] | + + + + + | [facility] | [address] | [place] [address] | | | SERVICES, CORE | [address] | | | + + + + + CAPILLARY BLOOD GLUCOSE (NO CHG)CITLALY (09/27/2017 12:41 AM PDT) + +---------+ + [...] [facility] | [address] | [place], [place] | | | [facility] | [address] | [address] | | | TESTS | | | [...] SE[facility]NA P[facility]ET[facility] | [address] | [place], [place] | | | [facility] OF [facility] | [address] | [address] | | | TESTS | | | [...] DEPT OF | [address] | [place], [place] | | | CARDIOLOGY | [address] | [address] | | + + + + + [...] [facility] | [address] | [place], [place] | | | [facility] | [address] | [address] | | | TESTS | | | [...] - [facility] | [address] | [place], [place] | | | [facility] | [address] | [address] | | | TESTS | | | [...] + + + | [facility] | [address] | [place], [place] | | | [facility] | [address] | [address] | | | TESTS | | | [...] [facility] | [address] | [place] [address] | | | NATALEE WORTHINGTON | [address] [...] | + + + + + | [facility] | [address] | [place] [address] | | | NATALEE WORTHINGTON | VILMA [...] | + + + + + | [facility] | [address] | [place] [address] | | | SERVICES, CORE | [...] [facility] | [address] | [place], [place] | | | [facility] | [address] | [address] | | | TESTS | | | [...] LABORATORY | [address] | [place] [address] | | | NATALEE WORTHINGTON | VIL[address] [...] | + + + + + | [facility] | [address] | [place] [address] | | | NATALEE WORTHINGTON | VILMA [...] | + + + + + | [facility] | [address] | [place] [address] | | | SERVICES, CORE | VILMA [...] DEPT OF | [address] | [place], [place] | | | CARDIOLOGY | [address] | [address] | | + + + + + [...] Note | + + | Service Account, Shoutfit In Interface - 09/24/2017 4:09 PM PDT [...] LABORATORY | [address] | [place] [address] | | | SERVICES, NATALEE | VILMA [...] | + + + + + | [facility] | [address] [facility] | [place] [address] | | | SERVICES, NATALEE | VILMA [...] LABORATORY | [address] | [place] [address] | | | SERVICES, CORE | [address] [...] | + + + + + | [facility] | [address] | [place] [address] | | | SERVICES, CORE | VILMA [...] LABORATORY | [address] | [place] [address] | | | SERVICES, CORE | [address] [...] the MDRD equation recommended by the | [facility] | | National Kidney Disease [...] | + + + + + | [facility] | [address] | [place] [address] | | | ELIN, NATALEE | VILMA [...] MARQU[facility] | [address] | [place] | | | [facility] GE[facility]O [facility] | [facility] | [address] | | | TESTS | | | [...] PICKETT | [address] | [place], [place] | | | [facility] | [address] | [address] | | | TESTS | | | [...] | + + + + + | [facility] | [address] | [place] [address] | | | NATALEE WORTHINGTON | VILMA [...] | [facility] | [address] [facility] | [place], [place] | | | CARDIOLOGY | [address] | [address] | | + + + + + [...] | + + + + + | [facility] | [address] | [place] [address] | | | NATALEE WORTHINGTON | VILMA [...] | + + + + + | [facility] | [address] | [place] [address] | | | SERVICES, CORE | VILMA [...] | + + + + + | [facility] | [address] | [place] [address] | | | SERVICES, CORE | VILMA [...] (H) | 70 - 99 mg/dL | [facility] - | | | GLUCOSE, [...] PICKETT | [address] | [place], [place] | | | [facility] | [address] | [address] | | | TESTS | | | [...] | + + + + + | [facility] | [address] | [place] [address] | | | SERVICES, CORE | [address] [...] LABORATORY | [address] | [place] [address] | | | SERVICES, CORE | VILMA [...] | + + + + + | [facility] | [address] | [place] [address] | | | NATALEE WORTHINGTON | [address] [...] Note | + + | Service Account, Dizmo Res In Interface - 09/20/2017 7:50 PM [...] Note | + + | Service Account, Shoutfit In Interface - 09/20/2017 6:25 PM PDT [...] Note | + + | Service Account, Dizmo Res In Interface - 09/20/2017 6:26 PM [...] report as now presented. Final signature: Espinoza Sanchez, | | 09/20/2017 5:16 PM Preliminary: [...] DEPT OF | [address] | [place], [place] | | | CARDIOLOGY | [address] | [address] | | + + + + + [...] | + + + + + | [facility] | [address] | [place] [address] | | | NATALEE WORTHINGTON | [address] [...] | + + + + + | [facility] | [address] | [place] [address] | | | SERVICES, CORE | VILMA [...] LABORATORY | [address] | [place] [address] | | | SERVICES, CORE | [address] [...] | + + + + + | [facility] | [address] | [place] [address] | | | NATALEE WORTHINGTON | VILMA [...] | + + + + + | [facility] | [address] | [place] [address] | | | SERVICES, CORE | VILMA [...] LABORATORY | [address] | [place] [address] | | | SERVICES, CORE | VILMA [...] LABORATORY | [address] | [place] [address] | | | NATALEE WORTHINGTON | VILMA [...] | + + + + + | [facility] | [address] | [place] [address] | | | SERVICES, CORE | [address] [...] | + + + + + | [facility] | [address] | [place] [address] | | | SERVICES, CORE | VILMA [...] Note | + + | Service Account, Shoutfit In Interface - 09/17/2017 11:53 AM PDT [...] | + + + + + | [facility] | [address] | [place] [address] | | | SERVICES, CORE | [address] | | | + + + + + MAGNESIUM, PLASMA (09/17/2017 6:46 AM PDT) + +-------+ + + + | Component | Value | Ref Range | Performed | Pathologist | | | | | At | Signature | + +-------+ + + + | MAGNESIUM,P | 2.4 | 1.6 - 2.6 mg/dL | [facility] | | | LASMA | | | [...] LABORATORY | [address] | [place] [address] | | | SERVICES, NATALEE | VILMA [...] | + + + + + | [facility] | [address] | [place] [address] | | | SERVICES, NATALEE | [address] [...] Note | + + | Service Account, Shoutfit In Interface - 09/16/2017 1:34 PM PDT [...] Note | + + | Service Account, Shoutfit In Interface - 09/16/2017 11:41 AM PDT [...] [facility] | [address] | [place] [address] | | | SERVICES, CORE | [address] [...] | + + + + + | [facility] | [address] | [place] [address] | | | SERVICES, NATALEE | [address] [...] + + + + + | [facility] | [address] | [place] [address] | | | SERVICES, CORE | [address] [...] PICC LINE CHECK HISTORY: PICC COMPARISON: | [facility] | | 09/10/17 FINDINGS: A left upper [...] verifies correct patient, procedure, equipment, field support rep | | | and site/side marked as [...] | area Basilic vein. Catheter lot number: [id number] with a length of 55 | | [...] Note | + + | Service Account, Dizmo Res In Interface - 09/15/2017 2:13 PM [...] LABORATORY | [address] | [place] [address] | | | NATALEE WORTHINGTON | [address] [...] | + + + + + | [facility] | [address] | [place] [address] | | | NATALEE WORTHINGTON | [address] [...] | + + + + + | [facility] | [address] | [place] [address] | | | SERVICES, CORE | VILMA [...] | + + + + + | [facility] | [address] | [place] [address] | | | SERVICES, CORE | [address] [...] LABORATORY | [address] | [place] [address] | | | SERVICES, CORE | VILMA [...] Information: <60 mL/min/1.73 sq m | [place] [facility] [place] | | Chronic Kidney Disease <15 mL/min/1.73 [...] | + + + + + | [facility] | [address] | [place] [address] | | | NATALEE WORTHINGTON | [address] | | | + + + + + [facility] (HEMOGRAM) ONLY (09/13/2017 6:34 AM PDT) + [...] | + + + + + | [facility] | [address] | [place] [address] | | | SERVICES, CORE | PARK [...] LABORATORY | [address] | [place] [address] | | | SERVICES, CORE | [address] [...] | + + + + + | [facility] | [address] | [place] [address] | | | NATALEE WORTHINGTON | [address] [...] Procedure Note | + + | Service Kostas Galeas Res In Interface - 09/12/2017 9:13 AM [...] | + + + + + | [facility] | [address] | [place] [address] | | | SERVICES, NATALEE | VILMA [...] | + + + + + | [facility] | [address] | [place] [address] | | | SERVICES, CORE | VILMA [...] the MDRD equation recommended by the | [facility] | | National Kidney Disease [...] | + + + + + | [facility] | [address] | [place] [address] | | | SERVICES, CORE | VILMA [...] Note | + + | Service Account, Dizmo Res In Interface - 09/11/2017 6:22 PM [...] | [address] | [place] [address] | | | SERVICES, CORE | PARK [...] LABORATORY | [address] | [place] [address] | | | SERVICES, CORE | [address] [...] | + + + + + | [facility] | [address] | [place] [address] | | | ELIN, NATALEE | [address] [...] | + + + + + | [facility] | [address] | [place] [address] | | | SERVICES, NATALEE | [address] [...] Note | + + | Service Account, Dizmo Res In Interface - 09/10/2017 2:08 PM [...] Note | + + | Service Account, Shoutfit In Interface - 09/10/2017 2:31 PM PDT [...] [facility] | | | | | [facility] | | | [...] | + + + + + | [facility] | [address] | [place] [address] | | | SERVICES, CORE | VILMA [...] | + + + + + | [facility] | [address] | [place] [address] | | | SERVICES, CORE | VILMA [...] | + + + + + | [facility] | [address] | [place] [address] | | | NATALEE WORTHINGTON | [address] [...] | + + + + + | [facility] | [address] | [place] [address] | | | NATALEE WORTHINGTON | [address]MA [...] | + + + + + | [facility] | [address] | [place] [address] | | | SERVICES, CORE | P[address] [...] | + + + + + | [facility] | [address] | [place], [place] | | | CARDIOLOGY | [address] | [address] | | + + + + + X-RAY ABD LTD FEEDING TUBE EVAL PORTABLE (09/09/2017 10:15 PM PDT) + + | Specimen | + + | | + + + + + | Narrative | Performed At | + + + | INDICATION: feeding tube placement TECHNIQUE: Supine portable | [facility] | | view of the upper abdomen. [...] Note | + + | Service Account, Dizmo Res In Interface - 09/10/2017 11:11 AM [...] - [facility] | [address] | [place], [place] | | | [facility] | [address] | [address] | | | TESTS | | | [...] LABORATORY | [address] | [place] [address] | | | SERVICES, CORE | PARK [...] | + + + + + | [facility] | [address] | [place] [address] | | | SERVICES, CORE | VILMA [...] LABORATORY | [address] | [place] [address] | | | SERVICES, CORE | [address] [...] | + + + + + | [facility] | [address] | [place] [address] | | | SERVICES, CORE | VILMA [...] LABORATORY | [address] | [place] [address] | | | SERVICES, CORE | VILMA [...] | + + + + + | [facility] | [address] | [place] [address] | | | SERVICES, CORE | P[address] [...] | + + + + + | [facility] | [address] | [place] [address] | | | SERVICES, CORE | VILMA [...] DEPT OF | [address] | [place], [place] | | | CARDIOLOGY | [address] | [address] | | + + + + + [...] LABORATORY | [address] | [place] [address] | | | SERVICES, CORE | [address] [...] the MDRD equation recommended by the | [facility] | | National Kidney Disease [...] | + + + + + | [facility] | [address] | [place] [address] | | | NATALEE WORTHINGTON | VILMA [...] | + + + + + | [facility] | [address] | [place] [address] | | | SERVICES, NATALEE | [address] [...] Note | + + | Service Account, Dizmo Res In Interface - 09/07/2017 10:46 AM [...] LTD FEEDING TUBE KAREEMAL 09/06/17 18:14:00 COMPARISON: | [facility] | | [...] | + + + + + | [facility] | [address] | [place], [place] | | | CARDIOLOGY | [address] | [address] | | + + + + + [...] | | | attempt. Midline lot number [id number]; there was positive blood | | | [...] | + + + + + | [facility] | [address] | [place] [address] | | | SERVICES, CORE | V[address]MA [...] | + + + + + | [facility] | [address] | [place] [address] | | | SERVICES, CORE | [address] [...] Note | + + | Service Account, Dizmo Res In Interface - 09/05/2017 10:16 AM [...] LABORATORY | [address] | [place] [address] | | | SERVICES, CORE | [address] [...] | + + + + + | [facility] | [address] | [place] [address] | | | NATALEE WORTHINGTON | [address] [...] | + + + + + | [facility] | [address] | [place] [address] | | | SERVICES, NATALEE | [address] [...] + | [facility] | [address] | [place] [address] | | | SERVICES, CORE | [address] [...] tomorrow morning. CB Henson Pager / ID: [phone] | | + + + CULTURE, SPUTUM [...] + + + + + | [facility] - | [address] | [place] [address] | | | [place] | | | | + + + [...] | + + + + + | [facility] | [address] | [place] [address] | | | SERVICES, CORE | VILMA [...] | [facility] | | | GRAVITY | Tyrone performed by | | LABORATORY | | [...] LABORATORY | [address] | [place] [address] | | | SERVICES, CORE | [address] [...] | + + + + + | [facility] | [address] | [place] [address] | | | SERVICES, CORE | VILMA [...] [facility] | [address] | [place] [address] | | | SERVICES, CORE | VILMA [...] DEPT OF | [address] | [place], [place] | | | CARDIOLOGY | [address] | [address] | | + + + + + [...] LABORATORY | [address] | [place] [address] | | | SERVICES, CORE [...] | + + + + + | [facility] | [address] | [place] [address] | | | SERVICES, CORE | VILMA [...] | + + + + + | [facility] | [address] | [place] [address] | | | SERVICES, CORE | VILMA [...] | + + + + + | [facility] | [address] | [place] [address] | | | SERVICES, CORE | VILMA [...] (H) | 70 - 99 mg/dL | [facility] - | | | GLUCOSE, [...] [facility] | [address] | [place], [place] | | | [facility] | [address] | [address] | | | TESTS | | | [...] [facility] | [address] | [place] | | | [facility] | [address] | [address] | | | TESTS | | | [...] [facility] | [address] | [place] | | | [facility] CARE | [facility] | [address] | | | TESTS | | | [...] [facility] | [address] | [place] | | | [facility]ARE | [address] | [address] | | | TESTS | | | [...] Note | + + | Service Account, Shoutfit In Interface - 09/03/2017 10:27 AM PDT [...] + | [facility] - | [address] | [place] [address] | | | [place] | | | | + + + [...] LABORATORY | [address] | [place] [address] | | | SERVICES, CORE | VILMA [...] + + + + + | [facility] - | [address] | [place] [address] | | | [place] | | | [...] LABORATORY | [address] | [place] [address] | | | SERVICES, CORE | PARK [...] LABORATORY | [address] | [place] [address] | | | SERVICES, CORE | PARK [...] | + + + + + | [facility] | [address] | [place] [address] | | | SERVICES, NATALEE | VILMA [...] | + + + + + | [facility] | [address] | [place] [address] | | | SERVICES, CORE | [address] | | | + + + + + OPERATION RECORD (09/02/2017 6:53 PM PDT) + + | Procedure Note | + + | Fidelina Shields MD - 09/02/2017 6:53 PM PDT Date of Service: 09/02/2017 | | Attending Surgeon: Fidelina Shields MD Twister In(s): | | Ajay Butts MD, resident. Preoperative [...] transferred to the ICU in stable condition.Ajay Butts | | MDMackyinka Shields MDTBK/MODLDD: 09/02/2017 18:15:29DT: 09/02/2017 18:53:52Job #: | | [id number] to federal Medicare and Medicaid regulations I was present for | | the entire procedure.Fidelina Shields MDAssistant ProfessorDepartment of SurgeryOffice: | | [phone]: [id number] has been electronically signed by Fidelina Shields MD, | | 09/03/2017 at 9:11 AM. | | | | | |Fidelina Shields MD | |Biological Photographer | |Department of Surgery | |Office: [phone] | |Pager: [phone] | | | |This has been electronically [...] | + + + + + | [facility] | [address] | [place] [address] | | | SERVICES, CORE | VILMA [...] | + + + + + | [facility] | [address] | [place] [address] | | | NATALEE WORTHINGTON | [address] [...] + | [facility] - | [address] | [place] [address] | | | [facility] | | | | + + [...] LABORATORY | [address] | [place] [address] | | | SERVICES, CORE | [address]ARK [...] the MDRD equation recommended by the | [facility] | | National Kidney Disease Education Program. [...] | + + + + + | [facility] | [address] | [place] [address] | | | SERVICES, [facility] [place] | [...] | | contact: INGRID Butts, R4 Surgery [phone] Pursuant | | | to federal Medicare and Medicaid regulations I was present for the | | | entire procedure. Fidelina Shields MD Biological Photographer | | | Department of Surgery Office: [phone] Pager: [phone] This has | | | been electronically [...] | + + + + + | [facility] | [address] | [place] [address] | | | SERVICES, CORE | VILMA [...] + + + + + | [facility] | [address] | [place] [address] | | | SERVICES, CORE | [address] | | | + + + + + OPERATION RECORD (09/02/2017 6:51 AM PDT) + ---+ | Procedure Note | + ---+ | Fidelina Shields MD - 09/02/2017 6:51 AM PDT Date of Service: 09/01/2017 | | Attending Surgeon: Fidelina Shields MD Twister In(s): Haim Peralta MD. | | Ajay Butts [...] insurance of adequate | | hemostasis, a [facility] ABThera wound VAC was then placed and [...] 09/02/2017 06:17:53DT: 09/02/2017 | | 06:51:37Job #: [id number] to federal Medicare and Medicaid regulations I | | was present for the entire procedure.Fidelina Goodenistanbrice ProfessorDepartment of | | SurgeryOffice: [phone]: [id number] has been electronically signed by Fidelina Whitman | | MD Cornelius, 09/02/2017 at 10:40 AM. | | | | | |Pursuant to federal Medicare and Medicaid regulations I was present for the entire procedur e. | | | | | | | |Fidelina Shields MD | |Biological Photographer | |Department of Surgery | |Office: [phone] | |Pager: [phone] | | | |This has been electronically [...] LABORATORY | [address] | [place] [address] | | | SERVICES, CORE | PARK [...] LABORATORY | [address] | [place] [address] | | | SERVICES, CORE | VILMA [...] + + + + | PRODUCT | [id number] | | [facility] | | | UNIT [...] + + + + | EXPIRATION | [id number] | | [facility] | | | DATE [...] + + + + | BLOOD | [id number] | | [facility] | | | PRODUCT [...] | + + + + + | [facility] | [address] | [place] [address] | | | SERVICES, | VILMA DAVE [...] the pelvis without intravenous contrast HISTORY: | [facility] | | Trauma. Concern for bladder injury. [...] LABORATORY | [address] | [place] [address] | | | SERVICES, CORE | PARK [...] | + + + + + | [facility] | [address] | [place] [address] | | | SERVICES, CORE | VILMA [...] | + + + + + | [facility] | [address] | [place] [address] | | | SERVICES, CORE | PARK [...] (http://www.cdc.gov/mmwr | | | | | | [email or web address] | | | | | | [email or web address]), [...] [facility] - | | | | by [employer], | | AIRPORT - | | | | | | [place] | | | | [address] | | | | | | [address] [place], [place] | | | | | | [phone] | | | | | | | | | | | | [email or web address] | | | | | | MD [...] + | [facility] - | [address] | [place] [address] | | | [place] | | | [...] LABORATORY | [address] | [place] [address] | | | NATALEE [place] | PARK [...] | + + + + + | [facility] | [address] | [place] [address] | | | SERVICES, CORE | VILMA [...] | + + + + + | [facility] | [address] | [place] [address] | | | SERVICES, CORE | VILMA [...] | + + + + + | [facility] | [address] | [place] [address] | | | SERVICES, CORE | VILMA [...] + + + + | PRODUCT | [id number] | | [facility] | | | UNIT [...] + + + + | EXPIRATION | [id number] | | [facility] | | | DATE [...] + + + + | BLOOD | [id number] | | [facility] | | | PRODUCT [...] [facility] | [address] | [place] [address] | | | SERVICES, | [address] [...] LABORATORY | [address] | [place] [address] | | | SERVICES, CORE | PARK [...] LABORATORY | [address] | [place] [address] | | | SERVICES, CORE | [...] LABORATORY | [address] | [place] [address] | | | SERVICES, CORE | VILMA [...] LABORATORY | [address] | [place] [address] | | | NATALEE WORTHINGTON | VILMA [...] | Previous result was 1.9 | | ELIN, | | | | mmol/L on 09/01/2017 [...] | + + + + + | [facility] | [address] | [place] [address] | | | SERVICES, CORE | VILMA [...] | + + + + + | [facility] | [address] | [place] [address] | | | SERVICES, [facility] [place] | [address] | | | + [...] micropuncture access set was exchanged for a Virtual Cityson wire. Under | | | fluoroscopic guidance, a 5 Fr flush catheter was used to evaluate the | | | distal abdominal aorta and pelvic vasculature. A wire and catheter | | | were then used to select the left common and internal iliac arteries | | | from the right REPERTOIRE MANAGER approach. DSA was performed from the [...] micropuncture access set was exchanged for a HuddleApp wire. Under fluoroscopic guidance, | | a 5 Fr flush catheter was used to evaluate the distal abdominal aorta and pelvic | | vasculature. A wire and catheter were then used to select the left common and internal | | iliac arteries from the right REPERTOIRE MANAGER approach. DSA was performed from the [...] micropuncture access set was exchanged for a HuddleApp wire. Under fluoroscopic guidance, a 5 Fr flush catheter was used | |to evaluate the distal abdominal aorta and pelvic vasculature. A wire and catheter were th en used to select the left common and internal iliac arteries from the right REPERTOIRE MANAGER approach. DSA was performed from the [...] [facility] | [address] [facility] [address] | [place], [place] | | | [facility] | [address] | [address] | | | TESTS | | | | + + + + + EXPLORATORY LAPAROTOMY (09/01/2017 12:31 PM PDT) + + + | Narrative | Performed At | + + + | Fidelina Shields MD 09/01/2017 12:42 PM BRIEF OPERATIVE NOTE: | | | Date: 09/01/2017 Author: Fidelina Shields MD | | | Attending Physician: Fidelina Shields MD Twister In(s): Haim Peralta | | | , Vicente Butts MD, [facility] MS3 Prior to the | | [...] case. | | | Fidelina Shields MD Biological Photographer Division of Trauma, | | | Critical Care and Acute Care Surgery Office: [phone] Pager: | | | [phone] | | + + + ABG-FULL ABL, [...] | | | POC | | | [place] | | | | | | [...] - [facility] | [address] | [place], [place] | | | [facility] | [address] | [address] | | | TESTS | | | [...] LABORATORY | [address] | [place] [address] | | | SERVICES, NATALEE | VILMA [...] [facility] | [address] | [place], [place] | | | [facility] CARE | [address] | [address] | | | TESTS | | | [...] + + + + | PRODUCT | [id number] | | [facility] | | | UNIT [...] + + + + | EXPIRATION | [id number] | | [facility] | | | DATE [...] + + + + | BLOOD | [id number] | | [facility] | | | PRODUCT [...] | + + + + + | [facility] | [address] | [place] [address] | | | SERVICES, | [address] [...] + + + + | PRODUCT | [id number] | | [facility] | | | UNIT [...] + + + + | EXPIRATION | [id number] | | [facility] | | | DATE [...] + + + + | BLOOD | [id number] | | [facility] | | | PRODUCT [...] | + + + + + | [facility] | [address] | [place] [address] | | | SERVICES, | [address] [...] + + + + | PRODUCT | [id number] | | [facility] | | | UNIT [...] + + + + | EXPIRATION | [id number] | | [facility] | | | DATE [...] + + + + | BLOOD | [id number] | | [facility] | | | PRODUCT [...] LABORATORY | [address] | [place] [address] | | | SERVICES, | [address] [...] + + + + | PRODUCT | [id number] | | [facility] | | | UNIT [...] + + + + | EXPIRATION | [id number] | | [facility] | | | DATE [...] + + + + | BLOOD | [id number] | | [facility] | | | PRODUCT [...] LABORATORY | [address] | [place] [address] | | | SERVICES, | [address] [...] + + + + | PRODUCT | [id number] | | [facility] | | | UNIT [...] + + + + | EXPIRATION | [id number] | | [facility] | | | DATE [...] + + + + | BLOOD | [id number] | | [facility] | | | PRODUCT [...] LABORATORY | [address] | [place] [address] | | | SERVICES, | [address] [...] + + + + | PRODUCT | [id number] | | [facility] | | | UNIT [...] + + + + | EXPIRATION | [id number] | | [facility] | | | DATE [...] + + + + | BLOOD | [id number] | | [facility] | | | PRODUCT [...] LABORATORY | [address] | [place] [address] | | | SERVICES, | [address] [...] + + + + | PRODUCT | [id number] | | [facility] | | | UNIT [...] + + + + | EXPIRATION | [id number] | | [facility] | | | DATE [...] + + + + | BLOOD | [id number] | | [facility] | | | PRODUCT [...] LABORATORY | [address] | [place] [address] | | | SERVICES, | [address] [...] + + + + | PRODUCT | [id number] | | [facility] | | | UNIT [...] + + + + | EXPIRATION | [id number] | | [facility] | | | DATE [...] + + + + | BLOOD | [id number] | | [facility] | | | PRODUCT [...] | + + + + + | [facility] | [address] | [place] [address] | | | SERVICES, | [address] [...] + + + + | PRODUCT | [id number] | | [facility] | | | UNIT [...] + + + + | EXPIRATION | [id number] | | [facility] | | | DATE [...] + + + + | BLOOD | [id number] | | [facility] | | | PRODUCT [...] | + + + + + | [facility] | [address] | [place] [address] | | | SERVICES, | [address] [...] + + + + | PRODUCT | [id number] | | [facility] | | | UNIT [...] + + + + | EXPIRATION | [id number] | | [facility] | | | DATE [...] + + + + | BLOOD | [id number] | | [facility] | | | PRODUCT [...] | + + + + + | [facility] | [address] | [place] [address] | | | SERVICES, | [address] [...] + + + + | PRODUCT | [id number] | | [facility] | | | UNIT [...] + + + + | EXPIRATION | [id number] | | [facility] | | | DATE [...] + + + + | BLOOD | [id number] | | [facility] | | | PRODUCT [...] | + + + + + | [facility] | [address] | [place] [address] | | | SERVICES, | [address] [...] + + + + | PRODUCT | [id number] | | [facility] | | | UNIT [...] + + + + | EXPIRATION | [id number] | | [facility] | | | DATE [...] + + + + | BLOOD | [id number] | | [facility] | | | PRODUCT [...] LABORATORY | [address] | [place] [address] | | | SERVICES, | [address] [...] + + + + | PRODUCT | [id number] | | [facility] | | | UNIT [...] + + + + | EXPIRATION | [id number] | | [facility] | | | DATE [...] + + + + | BLOOD | [id number] | | [facility] | | | PRODUCT [...] LABORATORY | [address] | [place] [address] | | | SERVICES, | [address] [...] + + + + | PRODUCT | [id number] | | [facility] | | | UNIT [...] + + + + | EXPIRATION | [id number] | | [facility] | | | DATE [...] + + + + | BLOOD | [id number] | | [facility] | | | PRODUCT [...] [facility] | [address] | [place] [address] | | | SERVICES, | [address] [...] + + + + | PRODUCT | [id number] | | [facility] | | | UNIT [...] + + + + | EXPIRATION | [id number] | | [facility] | | | DATE [...] + + + + | BLOOD | [id number] | | [facility] | | | PRODUCT [...] [facility] | [address] | [place] [address] | | | SERVICES, | [address] [...] + + + + | PRODUCT | [id number] | | [facility] | | | UNIT [...] + + + + | EXPIRATION | [id number] | | [facility] | | | DATE [...] + + + + | BLOOD | [id number] | | [facility] | | | PRODUCT [...] LABORATORY | [address] | [place] [address] | | | SERVICES, | [address] [...] + + + + | PRODUCT | [id number] | | [facility] | | | UNIT [...] + + + + | EXPIRATION | [id number] | | [facility] | | | DATE [...] + + + + | BLOOD | [id number] | | [facility] | | | PRODUCT [...] LABORATORY | [address] | [place] [address] | | | SERVICES, | [address] [...] + + + + | PRODUCT | [id number] | | [facility] | | | UNIT [...] + + + + | EXPIRATION | [id number] | | [facility] | | | DATE [...] + + + + | BLOOD | [id number] | | [facility] | | | PRODUCT [...] | + + + + + | [facility] | [address] | [place] [address] | | | SERVICES, | [address] [...] + + + + | PRODUCT | [id number] | | [facility] | | | UNIT [...] + + + + | EXPIRATION | [id number] | | [facility] | | | DATE [...] + + + + | BLOOD | [id number] | | [facility] | | | PRODUCT [...] | + + + + + | [facility] | [address] | [place] [address] | | | SERVICES, | [address] [...] + + + + | PRODUCT | [id number] | | [facility] | | | UNIT [...] + + + + | EXPIRATION | [id number] | | [facility] | | | DATE [...] + + + + | BLOOD | [id number] | | [facility] | | | PRODUCT [...] | + + + + + | [facility] | [address] | [place] [address] | | | SERVICES, | [address] [...] + + + + | PRODUCT | [id number] | | [facility] | | | UNIT [...] + + + + | EXPIRATION | [id number] | | [facility] | | | DATE [...] + + + + | BLOOD | [id number] | | [facility] | | | PRODUCT [...] | + + + + + | [facility] | [address] | [place] [address] | | | SERVICES, | [address] [...] + + + + | PRODUCT | [id number] | | [facility] | | | UNIT [...] + + + + | EXPIRATION | [id number] | | [facility] | | | DATE [...] + + + + | BLOOD | [id number] | | [facility] | | | PRODUCT [...] | + + + + + | [facility] | [address] | [place] [address] | | | SERVICES, | [address] [...] + + + + | PRODUCT | [id number] | | [facility] | | | UNIT [...] + + + + | EXPIRATION | [id number] | | [facility] | | | DATE [...] + + + + | BLOOD | [id number] | | [facility] | | | PRODUCT [...] LABORATORY | [address] | [place] [address] | | | SERVICES, | [address] [...] + + + + | PRODUCT | [id number] | | [facility] | | | UNIT [...] + + + + | EXPIRATION | [id number] | | [facility] | | | DATE [...] + + + + | BLOOD | [id number] | | [facility] | | | PRODUCT [...] LABORATORY | [address] | [place] [address] | | | SERVICES, | [address] [...] + + + + | PRODUCT | [id number] | | [facility] | | | UNIT [...] + + + + | EXPIRATION | [id number] | | [facility] | | | DATE [...] + + + + | BLOOD | [id number] | | [facility] | | | PRODUCT [...] LABORATORY | [address] | [place] [address] | | | SERVICES, | [address] [...] + + + + | PRODUCT | [id number] | | [facility] | | | UNIT [...] + + + + | EXPIRATION | [id number] | | [facility] | | | DATE [...] + + + + | BLOOD | [id number] | | [facility] | | | PRODUCT [...] LABORATORY | [address] | [place] [address] | | | SERVICES, | [address] [...] LABORATORY | [address] | [place] [address] | | | SERVICES, CORE | PARK [...] | + + + + + | [facility] | [address] [facility] | [place] [address] | | | SERVICES, CORE | VILMA [...] LABORATORY | [address] | [place] [address] | | | NATALEE WORTHINGTON | VILMA [...] [facility] | [address] | [place], [place] | | | [facility] | [address] | [address] | | | TESTS | | | [...] Note | + + | Service Account, Shoutfit In Interface - 09/02/2017 1:23 PM PDT [...] Note | + + | Service Account, Dizmo Res In Interface - 09/01/2017 1:40 PM [...] | | + +---------+ + + | [facility] | | | | [...] + + + + | PRODUCT | [id number] | | [facility] | | | UNIT [...] + + + + | EXPIRATION | [id number] | | [facility] | | | DATE [...] + + + + | BLOOD | [id number] | | [facility] | | | PRODUCT [...] LABORATORY | [address] | [place] [address] | | | SERVICES, | [address] [...] + + + + | PRODUCT | [id number] | | [facility] | | | UNIT [...] + + + + | EXPIRATION | [id number] | | [facility] | | | DATE [...] + + + + | BLOOD | [id number] | | [facility] | | | PRODUCT [...] LABORATORY | [address] | [place] [address] | | | SERVICES, | [address] [...] + + + + | PRODUCT | [id number] | | [facility] | | | UNIT [...] + + + + | EXPIRATION | [id number] | | [facility] | | | DATE [...] + + + + | BLOOD | [id number] | | [facility] | | | PRODUCT [...] [facility] | [address] | [place] [address] | | | SERVICES, | [address] [...] + + + + | PRODUCT | [id number] | | [facility] | | | UNIT [...] + + + + | EXPIRATION | [id number] | | [facility] | | | DATE [...] + + + + | BLOOD | [id number] | | [facility] | | | PRODUCT [...] LABORATORY | [address] | [place] [address] | | | SERVICES, | [address] [...] + + + + | PRODUCT | [id number] | | [facility] | | | UNIT [...] + + + + | EXPIRATION | [id number] | | [facility] | | | DATE [...] + + + + | BLOOD | [id number] | | [facility] | | | PRODUCT [...] LABORATORY | [address] | [place] [address] | | | SERVICES, | [address] [...] + + + + | PRODUCT | [id number] | | [facility] | | | UNIT [...] + + + + | EXPIRATION | [id number] | | [facility] | | | DATE [...] + + + + | BLOOD | [id number] | | [facility] | | | PRODUCT [...] LABORATORY | [address] | [place] [address] | | | SERVICES, | [address] [...] + + + + | PRODUCT | [id number] | | [facility] | | | UNIT [...] + + + + | EXPIRATION | [id number] | | [facility] | | | DATE [...] + + + + | BLOOD | [id number] | | [facility] | | | PRODUCT [...] | + + + + + | [facility] | [address] | [place] [address] | | | SERVICES, | [address] [...] + + + + | PRODUCT | [id number] | | [facility] | | | UNIT [...] + + + + | EXPIRATION | [id number] | | [facility] | | | DATE [...] + + + + | BLOOD | [id number] | | [facility] | | | PRODUCT [...] | + + + + + | [facility] | [address] | [place] [address] | | | SERVICES, | [address] [...] + + + + | PRODUCT | [id number] | | [facility] | | | UNIT [...] + + + + | EXPIRATION | [id number] | | [facility] | | | DATE [...] + + + + | BLOOD | [id number] | | [facility] | | | PRODUCT [...] LABORATORY | [address] | [place] [address] | | | SERVICES, | [address] [...] LABORATORY | [address] | [place] [address] | | | NAATLEE WORTHINGTON | [address] [...] | + + + + + | [facility] | [address] | [place] [address] | | | SERVICES, CORE | VILMA [...] Discussed with | | | trauma ICU qa internship by Dr. Yang at 4:38 AM. I have | | | personally reviewed the images and, if necessary, edited the report. | | | I agree with the report as now presented. | | + + + + + | Procedure Note | + + | Service Account, Shoutfit In Interface - 09/01/2017 10:10 AM PDT [...] interspinous ligament is injured.Discussed with trauma ICU qa internship | | by Dr. Yang at 4:38 AM.I have personally reviewed the images and, if necessary, | | edited the report. I agree with the report as now presented. | |3. Extensive soft tissue edema extending into the cervical and upper thoracic interspinous space, suggestive of interspinous ligament is injured. | | | |Discussed with trauma ICU qa internship by Dr. Yang at 4:38 AM. [...] | + + + + + | [facility] | [address] | [place] [address] | | | SERVICES, CORE | VILMA [...] | + + + + + | [facility] | [address] | [place] [address] | | | SERVICES, CORE | VILMA [...] | + + + + + | [facility] | [address] | [place] [address] | | | SERVICES, CORE | VIL[address] [...] | + + + + + | [facility] | [address] | [place] [address] | | | SERVICES, CORE | [address] [...] pleural spaced was performed. A 32 size Solomon Islander chest tube was | | | placed [...] | ventricles. Discussed with the trauma ICU qa internship at 12:12 AM by | | | Dr. Yang. I have personally reviewed the images and, if | | | necessary, edited the report. I agree with the report as now | | | presented. | | + + + + + | Procedure Note | + + | Service Account, RadiArccos Golf Res In Interface - 09/01/2017 10:14 AM [...] ventricles.Discussed with | | the trauma ICU qa internship at 12:[address] Yang.I [...] | | |Discussed with the trauma ICU qa internship at 12:[address] Yang. [...] [facility] | [address] | [place], [place] | | | [facility] | [address] | [address] | | | TESTS | | | [...] LABORATORY | [address] | [place] [address] | | | SERVICES, CORE | [address]ARK [...] | + + + + + | [facility] | [address] [facility] [facility] [address] | [place] [address] | | | SERVICES, [facility] | [...] + + + + + | [facility] | [address] | [place] [address] | | | SERVICES, CORE | [address] | | | + + + + + X-RAY PORTABLE CHEST 1 VIEW (08/31/2017 7:07 PM PDT) + + | Specimen | + + | | + + + + + | Narrative | Performed At | + + + | STUDY: IA CHEST 1 VIEW HISTORY: Trauma COMPARISON: CT CAP | [facility] | | 08/31/2017 FINDINGS: Endotracheal tube with [...] Note | + + | Service Account, RadiArccos Golf Res In Interface - 09/01/2017 1:44 PM [...] [facility] | [address] | [place] [address] | | | SERVICES, CORE | [address] [...] Note | + + | Service Account, Dizmo Res In Interface - 08/31/2017 8:22 PM [...] Note | + + | Service Account, Shoutfit In Interface - 09/01/2017 10:12 AM PDT [...] rib, nondisplaced-Left | | 1st rib fracture, mlztcxayprpg-Oip-ryrbkxyup left lateral 8th rib fracture-T12 fracture | [...] LABORATORY | [address] | [place] [address] | | | SERVICES, | [address] [...] | + + + + + | [facility] | [address] | [place] [address] | | | SERVICES, | [address] [...] | + + + + + | [facility] | [address] | [place] [address] | | | ELIN | [address] [...] 5.4 | 5 - 10 Minutes | [facility] - | | | CITRATED | | | [facility] | | | | | | [facility]ORIA [facility] | | | | | | OF CARE | | | | | | TESTS | | + + + + + + | K - | 2.3 | 1 - 3 Minutes | [facility] - | | | CITRATED | | [...] [facility] | [address] | [place], [place] | | | [facility] | [address] | [address] | | | TESTS | | | [...] - [facility] | [address] | [place], [place] | | | [facility] | [facility] | [address] | | | TESTS | | | [...] [facility] | [address] | [place], [place] | | | [facility] | [address] | [address] | | | TESTS | | | [...] | | | TEMP | | | [facility] | | | | | | [facility] | | | | | | OF CARE | | | | | | TESTS | | + + + + + + | ISTAT | VENOUS | | [facility] - | | | SAMPLE TYPE | | | [facility] | | | [...] [facility] | [address] | [place], [place] | | | [facility] | [address] | [address] | | | TESTS | | | [...] + + + + | PRODUCT | [id number] | | [facility] | | | UNIT [...] + + + + | EXPIRATION | [id number] | | [facility] | | | DATE [...] + + + + | BLOOD | [id number] | | [facility] | | | PRODUCT [...] | + + + + + | [facility] | [address] | [place] [address] | | | SERVICES, | [...] + + + + | PRODUCT | [id number] | | [facility] | | | UNIT [...] + + + + | EXPIRATION | [id number] | | [facility] | | | DATE [...] + + + + | BLOOD | [id number] | | [facility] | | | PRODUCT [...] | + + + + + | [facility] | [address] | [place] [address] | | | SERVICES, | [address] [...] + + + + | PRODUCT | [id number] | | [facility] | | | UNIT [...] + + + + | EXPIRATION | [id number] | | [facility] | | | DATE [...] + + + + | BLOOD | [id number] | | [facility] | | | PRODUCT [...] | + + + + + | [facility] | [address] | [place] [address] | | | SERVICES, | [address] [...] + + + + | PRODUCT | [id number] | | [facility] | | | UNIT [...] + + + + | EXPIRATION | [id number] | | [facility] | | | DATE [...] + + + + | BLOOD | [id number] | | [facility] | | | PRODUCT [...] LABORATORY | [address] | [place] [address] | | | SERVICES, | [address] [...] + + + + | PRODUCT | [id number] | | [facility] | | | UNIT [...] + + + + | EXPIRATION | [id number] | | [facility] | | | DATE [...] + + + + | BLOOD | [id number] | | [facility] | | | PRODUCT [...] LABORATORY | [address] | [place] [address] | | | SERVICES, | [address] [...] + + + + | PRODUCT | [id number] | | [facility] | | | UNIT [...] + + + + | EXPIRATION | [id number] | | [facility] | | | DATE [...] + + + + | BLOOD | [id number] | | [facility] | | | PRODUCT [...] LABORATORY | [address] | [place] [address] | | | SERVICES, | [address] [...] + + + + | PRODUCT | [id number] | | [facility] | | | UNIT [...] + + + + | EXPIRATION | [id number] | | [facility] | | | DATE [...] + + + + | BLOOD | [id number] | | [facility] | | | PRODUCT [...] LABORATORY | [address] | [place] [address] | | | SERVICES, | [address] [...] + + + + | PRODUCT | [id number] | | [facility] | | | UNIT [...] + + + + | EXPIRATION | [id number] | | [facility] | | | DATE [...] + + + + | BLOOD | [id number] | | [facility] | | | PRODUCT [...] LABORATORY | [address] | [place] [address] | | | SERVICES, | [address] [...] LABORATORY | [address] | [place] [address] | | | SERVICES, CORE | [address]ARK [...] | + + + + + | [facility] | [address] | [place] [address] | | | NATALEE WORTHINGTON | VILMA [...] LABORATORY | [address] | [place] [address] | | | SERVICES, CORE | [address] [...] | + + + + + | [facility] | [address] | [place] [address] | | | SERVICES, CORE | [address] [...] LABORATORY | [address] | [place] [address] | | | SERVICES, CORE | [address] [...] LABORATORY | [address] | [place] [address] | | | NATALEE WORTHINGTON | [address] [...] bacitracin 20 Units, ringers | Given | 10/11/19 | 2,020 mL | | Surgical | | (TIS-U-JUAN) 2,000 mL | | 18 8:49 | | | Site | | INTRAPROCEDURE PRN, Starting Sho | | AM PDT | | | | | 10/10/17 at 0849, Until Sho | | | | | | | 10/10/17 at 1243 | | | | | | + +-------+ + +---+ + +---+---+ | | | +---+---+ + +-------+ +---------+---+ + | bacitracin ointment | Given | 10/11/19 | 1 strip | | Surgical | | INTRAPROCEDURE PRN, Starting Sho | | 18 9:58 | | | Site | | 10/10/17 at 0958, Until Sho | | AM PDT | [...] +-------+ +-------+---+---------+ | bupivacaine | Given | 10/11/19 | 10 mL | | Abdomen | | (MARCAINE,SENSORCAINE) 0.25 % | | 18 10:39 | | | | | (2.5 mg/mL) injection | | AM PDT | | | | | INTRAPROCEDURE PRN, Starting Sho | | | | | | | 10/10/17 at 1039, Until Sho | | | | | | | 10/10/17 at 1243 | | | | | | + +-------+ +-------+---+---------+ +---+---+ | | | +---+---+ + +-------+ +-------+---+ + | bupivacaine-EPINEPHrine | Given | 10/11/19 | 10 mL | | Surgical | | (MARCAINE-EPINEPHRINE) 0.25 | | 18 8:23 | | | Site | | %-1:200,000 injection | | AM PDT | | | | | INTRAPROCEDURE [...] | | | | | modification) on [facility] 11/07/17 at | | | | [...]
--- OUTSIDE RECORDS SUMMARY | ~2019-12-20 | XMS | Encounter Summary ---
Demographics + + + | Address | [address] | | | [place] [address] | + + + | Home Phone [...] + | Author | [facility] | + + + | Organization | [facility] [facility] | + + + | Address | Unknown | + + + | Phone | Unavailable | + + + Support + + +---------+ + | Name | Relationship | Address | Phone | + + +---------+ + | Kaylie Baig | ECON | Unknown | | + + +---------+ + Care Team Providers + +------+ + | Care Multi Media Specialist Name | Role | Phone | [...] | 2017 | Pass | Services at [facility] | | | | | | [address] | | | | | | [place] | | | | | | [facility], [address] [place] [address] | | | | | | [place], [place] | | | | | | [address] | | | | | | [phone] | | | +--------+ + + + [...]
--- OUTSIDE RECORDS SUMMARY | ~2019-12-20 | XMS | Encounter Summary ---
Demographics + + + | Address | [address] | | | [place] [address] | + + + | Home Phone [...] [facility] [employer] [facility] | + + + | Organization | [facility] [employer] [facility] [...] Providers + +------+ + | Care Clinical Educator Name | Role | Phone | + [...] Pharmacy | | | | | | [address] | | | | | | [address] [place], [place] | | | | | | [address] | | | | | | [phone] | | | +--------+ + + + [...]
--- OUTSIDE RECORDS SUMMARY | ~2019-12-20 | XMS | Encounter Summary ---
Demographics + + + | Address | [address] | | | [place] [address] | + + + | Home Phone [...] | Author | [facility] [employer] [facility] | + + + | Organization | [facility] [employer] [facility] | + + + | Address | Unknown | + + + | Phone | Unavailable | + + + Support + + +---------+ + | Name | Relationship | Address | Phone | + + +---------+ + | Kaylie Baig | ECON | Unknown | | + + +---------+ + Care Team Providers + +------+ + | Care Medicine Assistant Name | Role | Phone | [...] 2017 | Pass | Services at [facility] | | | | | | [address] | | | | | | [place] | | | | | | [facility], [address] [place] [address] | | | | | | [place], [place] | | | | | | [address] | | | | | | [phone] | | | +--------+ + + + [...]
--- OUTSIDE RECORDS SUMMARY | ~2019-12-20 | XMS | Encounter Summary ---
Demographics + + + | Address | [address] | | | [place] [address] | + + + | Home Phone [...] | [facility] [employer] [facility] | + + + | Organization | [facility] [employer] [facility] | + + + | Address | Unknown | + + + | Phone | Unavailable | + + + Support + + +---------+ + | Name | Relationship | Address | Phone | + + +---------+ + | Kaylie Baig | ECON | Unknown | | + + +---------+ + Care Team Providers + +------+ + | Care Business Director Name | Role | Phone | [...] | 2018 | Pass | Services at [facility] | | | | | | [address] | | | | | | [place] | | | | | | [facility], [address] [place] [address] | | | | | | [place], [place] | | | | | | [address] | | | | | | [phone] | | | +--------+ + + + [...]
--- OUTSIDE RECORDS SUMMARY | ~2019-12-20 | XMS | Encounter Summary ---
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 10:13 AM PDTI was present and rou nded with the Advanced Practice Provider today . I interviewed and examined the patient. I reviewed the history, as documented today. I agree with the ASHLEY assessment and plan. TBI has remained stable. On lovenox. Will continue haldol per psych.. EM CUNNINGHAM MD [facility] [address] [place] [address] Venita Pruitt PA-C - 10/05/2017 8:38 AM [...] p atient unable to come out fo SUGAR GRINDER for now Resolved or chronic issues/Plan: [...] by patient, but wound remains duke n/dry/intact. [place] removed 09/17. #Left hemothorax Chest tube placed [...] issues, including restraints. Venita Pruitt PA-[place] [phone] [facility] [place] [address] [place] [facility] [place] [address] [phone] Associated attestation - Sholmo Bravo MD - 10/06/2017 7:28 AM PDTFormatting of this note m ight be different from the original. I saw and examined Diogenes Temple ([id number]) with the TRAUMA team on 10/05/2017. I [...] and incen tive spirometry for pulmonary toliet. dev manager for disposition planning and placement. Shlomo Bravo MD Motor Assembler Division of Trauma and Critical Care Venita [...] (baseline from previous TBI ) Neck: in K[place]a collar Respiratory: CTA b.l CV: RRR GI: [...] p atient unable to come out fo SUGAR GRINDER for now Resolved or chronic issues/Plan: [...] issues, including restraints. Venita Pruitt PA-C [place] [phone] [place] [phone] [facility] [address] [place] [address] Associated attestation - [...] and only enteral access. Fidelina Shields MD Dietitian Assistant Division of Trauma, Critical Care and Acute Care Surgery Office: [phone] Pager: [phone] Leonor Torres ACNP - 10/03/2017 3:13 PM [...] (baseline from previous TBI ) Neck: in Keshena collar Respiratory: CTA bilaterally, no distress CV: [...] p atient unable to come out fo SUGAR GRINDER for now Resolved or chronic issues/Plan: [...] by patient, but wound remains duke n/dry/intact. [place] removed 09/17. #Left hemothorax Chest tube placed [...] PDTAttending: I saw and examined Diogenes Temple ([id number]) with CB Hair on morning rounds 10/03 and agree with the assessment and plan as outlined in this note and participated in the planning of care. Mental status is slightly better, remains sedated but he is interactive and at least somewh at oriented. Enteral nutrition advancing and, as approaches goal, will turn TPN off. Place ment remains a significant issue. Fidelina Shields MD Dietitian Assistant Division of Trauma, Critical Care and Acute Care Surgery Office: [phone] Pager: [phone] July Harp PA-C - 10/03/2017 12:58 PM [...] the C-collar when in bed then the SUGAR GRINDER when out of bed until 12/01/17. JULY HARP PA-C [facility] [address] [place] [address] Associated attestation - Magdiel Stock MD - 10/04/2017 6:02 PM PDTI performed a history a nd physical examination of the patient and discussed the management with the advanced practi ce provider, July Harp PA-C. I reviewed the advanced practice provider's note and agree w ith the plan of care as documented. Continue cervical collar and SUGAR GRINDER for 3 months to ensure fracture healing and prevent development of post-fracture cervical kyphosis. Magdiel Stock MD Dietitian Assistant Department of Neurological Surgery [facility] [place] Sherine Sarmiento, [facility] - 10/02/2017 12:54 PM PDTFormatting of [...] (baseline from previous TBI ) Neck: in Keshena collar Respiratory: CTA bilaterally, lungs symmetrical, equal chest wall rise, no retractions CV: RRR GI: non tender, soft, active BS, last BM 09/30 : Patient voiding without difficulty Extremities: no peripheral edema, wiggles toes and toes pink and well perfused Musculoskeletal: 5/5 graphic art technician strength on right, 3/5 graphic art technician strength on left FEN: on TPN, [...] AMS & delirium - numerous evaluations by WIRE LATHER with trials of PO - now s/p [...] . - C-collar at all times, use SUGAR GRINDER when OOB - Follow-up with Neurosurgery on 10/21 with repeat X-rays #Blunt abdominal trauma #Splenic laceration S/p laparotomies x2. Fascia closed 09/02 Wound vac removed by patient, but wound remains duke n/dry/intact. [place] removed 09/17. #Left hemothorax Chest tube placed [...] will decrease scheduled [place]dol[place] Pg [id number] Associated attestation - Fidelina Shields MD - 10/02/2017 4:40 PM PDTAttending: I saw and examined Diogenes Temple ([id number]) with KESHAWN Alexander on mornin g rounds [...] drawn back to midline position. May need fci enteral access , but is ~4 weeks s/p damage control laparotomy and risk is higher now than it will be in 7- 14 days and if swallow is not improving then will place prior to DC Fidelina Shields MD Dietitian Assistant Division of Trauma, Critical Care and Acute Care Surgery Office: [phone] Pager: [phone] Sherine Sarmiento, AGACN - 10/01/2017 7:27 AM [...] (baseline from previous TBI ) Neck: in Keshena collar Respiratory: CTA bilaterally, lungs symmetrical, equal chest wall rise, no retractions CV: RRR GI: non tender, soft, active BS, last BM 09/30 : Patient voiding without difficulty Extremities: no peripheral edema, wiggles toes and toes pink and well perfused Musculoskeletal: 5/5 graphic art technician strength on right, 3/5 graphic art technician strength on left FEN: on TPN [...] AMS & delirium - numerous evaluations by WIRE LATHER with trials of PO - now s/p modified barium swallow x2 which indicates aspiration - continue NPO - WIRE LATHER reports that patient working on tongue strength [...] . - C-collar at all times, use SUGAR GRINDER when OOB - Follow-up with Neurosurgery [...] trauma team and [place]g [id number] Associated attestation - Fidelina Shields MD - 10/02/2017 4:40 PM PDTAttending: I saw and examined Diogenes Temple ([id number]) with KESHAWN Alexander on mornin g rounds 10/01/17 and agree with the assessment and plan as outlined in this note and partic ipated in the planning of care. Will trial DHT placement today, CT head unchanged. Suspect somnolence is medication side ef fect and, if persistent, may need to wean antipsychotic doses. Fidelina Shields MD Dietitian Assistant Division of Trauma, Critical Care and Acute Care Surgery Office: [phone] Pager: [phone] Christian Kelley PA-C - 09/30/2017 12:21 PM [...] Fixed and dilated on left Neck: in Keshena collar Respiratory: CTA bilaterally, lungs symmetrical, equal chest wall rise, no retractions CV: RRR GI: non tender, soft, active BS, last BM 09/30 : Patient voiding without difficulty Extremities: no peripheral edema, wiggles toes and toes pink and well perfused Musculoskeletal: 5/5 graphic art technician strength on right, 3/5 graphic art technician strength on left FEN: on TPN [...] AMS & delirium - numerous evaluations by WIRE LATHER with trials of PO - now s/p modified barium swallow x2 which indicates aspiration - continue NPO - WIRE LATHER reports that patient working on tongue strength [...] . - C-collar at all times, use SUGAR GRINDER when OOB - Follow-up with Neurosurgery [...] 09/21 Disposition: Pending stat head CT CHRISTIAN KELELY PA-C Associated attestation - Fidelina Shields MD - 09/30/2017 3:08 PM PDTAttending: I saw and examined Diogenes Temple ([id number]) with Christian Kelley PA-C on morning rounds 09/30 and agree with the assessment and plan as outlined in this note and participated in the planning of care. Mentally slower this morning, but non-focal. Received haldol overnight for sleep. Repeat head CT was unchanged so suspect etiology of slowed responsiveness is the antipsychotic dose . WIRE LATHER believes that, once collar off, may be able to take PO more effectively and thus will hold off on surgical feeding access. TPN is a temporary solution and if patient remains kaye kierra will trial DHT tomorrow. Working with psychiatry for medication recommendations. Fidelina Shields MD Dietitian Assistant Division of Trauma, Critical Care and Acute Care Surgery Office: [phone] Pager: [phone] July Harp PA-C - 09/30/2017 8:23 AM PDTBrief Neurosurgery Wound Check: Wound is dry, without erythema, not fluctuant. No acute swelling. Nylon in place. Will plan to follow peripherally for wound checks and remove nylons on 10/09. JULY HARP PA-C [facility] [address] [place] [address] Christian Begum PA-C - 09/29/2017 7:15 AM [...] and EOMs intact to exam Neck: in Keshena collar Respiratory: CTA bilaterally, lungs symmetrical, equal [...] AMS & delirium - numerous evaluations by WIRE LATHER with trials of PO - now s/p [...] . - C-collar at all times, use SUGAR GRINDER when OOB - Follow-up with Neurosurgery [...] PDTAttending: I saw and examined Diogenes Temple ([id number]) with Christian Kelley PA-C on morning rounds [...] in conjunction with psychiatry. Fidelina Shields MD Dietitian Assistant Division of Trauma, Critical Care and Acute Care Surgery Office: [phone] Pager: [phone] Christian Kelley PA-C - 09/28/2017 1:01 PM [...] he said, who, ariel? And then the APPRAISAL COORDINATOR helped him make a call to [...] and EOMs intact to exam Neck: in Keshena collar Respiratory: CTA bilaterally, lungs symmetrical, equal [...] very agitated today. - EKG today with [place] QTc calculated to be 428 - optimize [...] AMS & delirium - numerous evaluations by WIRE LATHER with trials of PO - now s/p [...] . - C-collar at all times, use SUGAR GRINDER when OOB - Follow-up with Neurosurgery on 10/21 with repeat X-rays #Blunt abdominal trauma #Splenic laceration S/p laparotomies x2. Fascia closed 09/02 Wound vac removed by patient, but wound remains duke n/dry/intact. [place] removed 09/17. #Left hemothorax Chest tube placed [...] more toda y. Chaz Hernandez MD, FACS Dietitian Assistant, Trauma, Critical Care and Acute Care Surgery Chaz Hernandez MD - 09/28/2017 10:13 AM PDTTrauma Staff Seen and examined this AM with team. I have concerns abotu behaviour, as he is consistently threatening RN and ancillary staff, even attempting swings. Behavior seems worse at night. I would favor increasing night time Haldol dose, and following EKGs. Chaz Hernandez MD, FACS Dietitian Assistant, Trauma, Critical Care and Acute Care [...] Dallin Bourgeois MD Neurosurgery PGY1 | Pager #[phone] Christian Begum PA-C - 09/27/2017 7:31 AM [...] able to have a linear conversation briefly WIRE LATHER requesting repeat barium swallow Current meds: I [...] incision healing , suture c/d/I Neck: in SUGAR GRINDER Respiratory: unlabored on room air, lungs [...] AMS & delirium - numerous evaluations by WIRE LATHER with trials of PO - now s/p [...] . - C-collar at all times, use SUGAR GRINDER when OOB - Follow-up with Neurosurgery on 10/21 with repeat X-rays #Blunt abdominal trauma #Splenic laceration S/p laparotomies x2. Fascia closed 09/02 Wound vac removed by patient, but wound remains duke n/dry/intact. [place] removed 09/17. #Left hemothorax Chest tube placed [...] agree with the ASHLEY assessment and plan. Luiaz rosurgery continues to require nonoperative management. No change in current regimen per psy ch. Dysphagia remains a major issue. Will cotinue TPN for now. EM CUNNINGHAM MD [facility] [address] [place] [address] Christian Kelley PA-C - 09/26/2017 6:48 AM [...] posterior scalp crani incision c/d/I Neck: in Keshena collar Respiratory: unlabored on room air CV: [...] AMS & delirium - numerous evaluations by WIRE LATHER with trials of PO - now s/p [...] . - C-collar at all times, use SUGAR GRINDER when OOB - Follow-up with Neurosurgery on 10/21 with repeat X-rays #Blunt abdominal trauma #Splenic laceration S/p laparotomies x2. Fascia closed 09/02 Wound vac removed by patient, but wound remains duke n/dry/intact. [place] removed 09/17. #Left hemothorax Chest tube placed [...] Continue NPO and TPN. EM CUNNINGHAM MD [facility] [address] [place] [address] Christian Kelley PA-C - 09/25/2017 7:49 AM [...] HEENT: EOMs intact to exam Neck: in SUGAR GRINDER brace Respiratory: unlabored on room air [...] AMS & delirium - numerous evaluations by WIRE LATHER with trials of PO - now s/p [...] . - C-collar at all times, use SUGAR GRINDER when OOB - Follow-up with Neurosurgery on 10/21 with repeat X-rays #Blunt abdominal trauma #Splenic laceration S/p laparotomies x2. Fascia closed 09/02 Wound vac removed by patient, but wound remains duke n/dry/intact. [place] removed 09/17. #Left hemothorax Chest tube placed [...] LFTS wnl. Continue TPN. EM CUNNINGHAM MD [facility] [address] [place] [address] Christian Kelley PA-C - 09/24/2017 11:07 AM [...] with agitation Having difficulty swallowing again - WIRE LATHER to re-eval and obtain barium swallow Current [...] HEENT: EOMs intact to exam Neck: in SUGAR GRINDER brace Respiratory: CTA bilaterally, lungs symmetrical, equal chest wall rise, no retractions CV: RRR GI: non distended, last BM 09/23 : good urine output Extremities: SCD's in place, no peripheral edema, wiggles toes and toes pink and well perfu sed Musculoskeletal: 5/5 strength in bilateral graphic art technician (but with slightly weaker on left) [...] likely 2/2 AMS & delirium - Failed WIRE LATHER eval 09/19 & 09/20, made NPO & dobhoff reinserted 09/21 but pulled overnight - Per WIRE LATHER on 09/21, ok for therapeutic pureed with [...] . - C-collar at all times, use SUGAR GRINDER when OOB - Follow-up with Neurosurgery [...] Start abx for dehiscence. EM CUNNINGHAM MD [facility] [address] [place] [address] Ginette Campos PA-C - 09/24/2017 9:31 AM PDTFormatting of this note might be differen t from the original. Neurosurgery Progress Note Hospital Day: Author; Ginette Campos PA-C Attending Physician: Chaz Henrandez MD Interval Hx: - No acute events [...] 4 extremities Unable to assess drift. Motor: Cover Seamer Bicep Tricep Delt R 5 5 5 [...] further questions or concerns. Ginette Campos PA-C [facility] [address] [place] [id number] illy, Gabriel Cleary AGACNP - 09/23/2017 6:32 [...] hiscence, draining minimal serosang fluid Neck: in SUGAR GRINDER brace Respiratory: unlabored on room air [...] PRN seroquel dose QHS for insomnia/restlessness at [facility] - Repeat ECG 09/22 with QTc [...] likely 2/2 AMS & delirium - Failed WIRE LATHER eval 09/19 & 09/20, made NPO & dobhoff reinserted 09/21 but pulled overnight - Per WIRE LATHER on 09/21, ok for therapeutic pureed with [...] . - C-collar at all times, use SUGAR GRINDER when OOB - Follow-up with Neurosurgery on 10/21 with repeat X-rays #Blunt abdominal trauma #Splenic laceration S/p laparotomies x2. Fascia closed 09/02 Wound vac removed by patient, but wound remains duke n/dry/intact. [place] removed 09/17. #Left hemothorax Chest tube placed [...] dysphagia & delir ium improves Sherine Sarmiento, [facility] [place] [phone] Dallin Deshpande MD - 09/22/2017 8:03 AM [...] Dallin Bourgeois MD Neurosurgery PGY1 | Pager #[phone] [facility] - 09/22/2017 6:52 AM PDTFormatting of [...] 24hr events: - Therapeutic purees initiated by WIRE LATHER yesterday - Trickle feeds via Dobbhoff, pt pulled Dobbhoff yesterday evening- not replaced - ELECTRIC METER REPAIRER HELPER called around 2129 for new left facial droop (see separate notes), CT revealed increa se in SDH from 12 to 17mm with no change in midline shift. [facility] - NSG and stroke [...] sluggish. Slight left facial droop Neck: in Keshena collar Respiratory: unlabored on room air CV: [...] PRN seroquel dose QHS for insomnia/restlessness at [facility]- - Repeat ECG 09/22 with Q Tc WNL. - Haldol 5mg q12hr prn for severe agitation #Substance abuse, concern for Alcohol withdrawal - CIWA discontinued 09/08, not scoring. - Thiamine & folate started 09/21 #Dysphagia, risk for aspiration #Protein calorie malnutirtion - likely 2/2 AMS & delirium - Failed WIRE LATHER eval 09/19 & 09/20, made NPO & dobhoff reinserted 09/21 but pulled overnight - Per WIRE LATHER on 09/21, ok for therapeutic pureed with [...] . - C-collar at all times, use SUGAR GRINDER when OOB - Follow-up with Neurosurgery [...] when dysphagia & delirium improves Sherine Sarmiento, [facility] [place] [phone] Associated attestation - Nubia Nieto MD,MPH - [...] Care & Acute Care Surgery [facility] [phone] Sami Black Merle - 09/21/2017 10:25 PM [...] in the morning. Plan: -neuro checks; page [phone] for any decline in neurological examination -pain control -Hard C collar at all times and place SUGAR GRINDER prior to mobilizing OOB. Anticipated duration of Collar/SUGAR GRINDER is 12 weeks -repeat CT head for any new decline in neurological exam and page [phone] -NPO at midnight tonight -please hold tonight's planned dose of Lovenox -further recommendations in the morning Sami Black MD, PhD PGY-3 Resident Neurosurgery [id number] signed by Sami Black at 09/21/2017 10:50 PM [facility] est[facility], [facility] - 09/21/2017 7:10 AM PDTFormatting of this note might be different from the orig inal. Trauma Acute Care - Progress Note Name: DIOGENES TEMPLE HPI: Diogenes Tepmle is a67 y.o. male with [...] Provena placem ent 24hr events: - Failed WIRE LATHER eval again yest morning, continued NPO - [...] reactive. Dobbhoff tube in place Neck: in [place] collar Respiratory: unlabored on room air CV: [...] likely 2/2 AMS & delirium - Failed WIRE LATHER eval 09/19 & 09/20, made NPO & dobhoff reinserted yesterday - Trickle feeds started this am at 20ml/hr, increase very slowly by 10ml every 12 hrs to go al of 75 due to hx of mesenteric hematomas and previous inability to tolerate TF - Per WIRE LATHER today, ok for therapeutic pureed with nectar [...] . - C-collar at all times, use SUGAR GRINDER when OOB - Follow-up with Neurosurgery [...] & delirium [place] [id number] Associated attestation - Fidelina Shields MD - 09/21/2017 9:36 PM PDTAttending: I saw and examined Diogenes Temple ([id number]) with KESHAWN Alexander on mornin g rounds [...] enough to re-trial PO. Fidelina Shields MD Dietitian Assistant Division of Trauma, Critical Care and Acute Care Surgery Office: [phone] Pager: [phone] Sherine Sarmiento AGACNP - 09/20/2017 7:41 AM [...] haldol given yesterday afternoon for agitation - WIRE LATHER paged to re-eval in afternoon after concern for aspiration, made NPO by WIRE LATHER - DARNELL SOLANO Current meds: I have [...] right pupil 3 and reactive Neck: in [place]eshena collar Respiratory: unlabored on room air CV: [...] thick/pureed d iet. Made NPO yesterday by WIRE LATHER after concern for aspiration. This is likely 2/2 waxing & wan ing delirium & AMS - WIRE LATHER re-eval today recommend continue NPO d/t overt clinical signs of aspiration - Place Dobbhoff tube and restart feeds, slowly progress to goal - Stop TPN when tolerating tube feeds - WIRE LATHER will follow closely, as his AMS improves [...] . - C-collar at all times, use SUGAR GRINDER when OOB - Follow-up with Neurosurgery [...] & delirium [place]g [phone] Associated attestation - Fidelina Shields MD - 09/20/2017 9:34 PM PDTAttending: I saw and examined Diogenes Temple ([id number]) with KESHAWN Alexander on mornin g rounds [...] dispo planning when able. Fidelina Shields MD Dietitian Assistant Division of Trauma, Critical Care and Acute Care Surgery Office: [phone] Pager: [phone] Mary Medrano MD,MPH - 09/19/2017 6:22 AM [...] downgraded from thin to thick liquids by WIRE LATHER Current meds: I have independently reviewed current [...] intact, small Right fluctuant pseudomeningocele Neck: in Keshena collar Respiratory: unlabored on room air CV: [...] DHT on09/19. - Cleared for diet by WIRE LATHER, tolerating purees, 749 Calories yesterday - Restart Calorie count: if taking >700 again will be OK for full po diet, otherwise replac e DHT and restart TF - Stop TPN tomorrow regardless - Still considering repeat CT abdomen/pelvis #Dysphagia DHTreplaced overnight 09/07. TF held due to emesis and possible ileus, aspiration risk. DH T pulled overnight on 09/18 - WIRE LATHER as able Resolved or chronic issues/Plan: #BIG 3 TBI #Right synthetic cranioplasty Neurosurgery consulted. Non-operative management. Last head CT 09/12 stable. Expected pseudo meningocele. Left-sided deficits consistent with baseline. - Stat head CT for any neurologic decline #C7 bilateral lamina fractures #C6-T2 spinous process fractures Neurosurgery consulted. Non-operative management. Upright cervical X-rays completed on 09/14 . - C-collar at all times, use SUGAR GRINDER when OOB - Follow-up with Neurosurgery [...] M.D., M.P.H. Neurological Surgery Resident PGY-1 Pager: [phone] Associated attestation - Fidelina Shields MD - 09/19/2017 1:36 PM PDTAttending: I saw and examined Diogenes Temple ([id number]) with the residents on morning rounds 09/19/17 and agree with the assessment and plan as outlined in this note and participated in the plan aashish of care. Improving po intake, will titrate TPN. Plan to DC TPN tomorrow and transition to PO vs PO + TF depending on calorie counts. Once of restraints will begin looking for placement. Fidelina Shields MD Dietitian Assistant Division of Trauma, Critical Care and Acute Care Surgery Office: [phone] Pager: [phone] Mary Medrano MD,MPH - 09/18/2017 6:17 AM [...] fluctuant pseudomeningocele,Dobhoff tubein p lace Neck: in [place] collar Respiratory: unlabored on room air CV: [...] holding TF - Cleared for diet by WIRE LATHER, tolerating small quantities of purees - Will need repeat CT A/P within 1-2 days #Hypervolemia I&O approaching even. Appears to have been auto-diuresing. - Continue to monitor urine output - Monitor electrolytes, replete prn #Dysphagia DHTreplaced overnight 09/07. TF held due to emesis and possible ileus, aspiration risk. - WIRE LATHER as able #C7 bilateral lamina fractures #C6-T2 spinous process fractures Neurosurgery consulted. Non-operative management. Upright cervical X-rays completed on 09/14 . - C-collar at all times, use SUGAR GRINDER when OOB - Follow-up with Neurosurgery [...] M.D., M.P.H. Neurological Surgery Resident PGY-1 Pager: [phone] signed by Fidelina Shields MD at 09/19/2017 3:58 PM PDT Associated attestation - Fidelina Shields MD - 09/19/2017 3:58 PM PDTAttending: I saw and examined Diogenes Temple ([id number]) with the residents on morning rounds 09/18/17 and agree with the assessment and plan as outlined in this note and participated in the plan aashish of care. Fidelina Shields MD Dietitian Assistant Division of Trauma, Critical Care and Acute Care Surgery Office: [phone] Pager: [phone] Mary Medrano MD,MPH - 09/17/2017 6:26 AM [...] fluctuant pseudomeningocele,Dobhoff tubein p lace Neck: in [place] collar Respiratory: unlabored on room air CV: [...] holding TF - Cleared for diet by WIRE LATHER, tolerating small quantities of purees #Hypervolemia I&O approaching even. Appears to have been auto-diuresing. - Continue to monitor urine output - Monitor electrolytes, replete prn #Dysphagia DHTreplaced overnight 09/07. TF held due to emesis and possible ileus, aspiration risk. - WIRE LATHER as able #C7 bilateral lamina fractures #C6-T2 spinous process fractures Neurosurgery consulted. Non-operative management. Upright cervical X-rays completed on 09/14 . - C-collar at all times, use SUGAR GRINDER when OOB - Follow-up with Neurosurgery [...] M.D., M.P.H. Neurological Surgery Resident PGY-1 Pager: [phone] signed by Fidelina Shields MD at 09/17/2017 2:29 PM PDT Associated attestation - Fidelina Shields MD - 09/17/2017 2:29 PM PDTAttending: I saw and examined Diogenes Temple ([id number]) with the residents on morning rounds 09/17/17 [...] repeat C T abdomen/pelvis. Fidelina Shields MD Dietitian Assistant Division of Trauma, Critical Care and Acute Care Surgery Office: [phone] Pager: [phone] Venita Pruitt PA-C - 09/16/2017 6:45 AM [...] HEENT: DHT in place, CARRI Neck: in [place]a collar Respiratory: CTA bilaterally, lungs symmetrical, equal [...] daily - Haldol 5mg q12hr prn - WIRE LATHER: severe cognitive deficits - continue WIRE LATHER therapy #Bilious emesis #Ileus #Aspiration #Leukocytosis - bilious emesis overnight, trickle tube feeds stopped; will restart tube feeds slowly this afternoon and determine tolerance - hx of ileus during hospitalization, NG removed 09/14 - Strict NPO per WIRE LATHER - Bowel meds via DHT - TPN continued #Hypervolemia I&O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 [address] | [place] [address] | | | SERVICES, CORE | [address] [...] | + + + + + | [facility] | [address] | [place] [address] | | | SERVICES, CORE | VIL[address] [...] + | [facility] - | [address] | [place] [address] | | | [place] | | | | + + + [...] | Triglyceride Reference Range: Normal: <150 | [facility] | | mg/dL Borderline High: 150-199 mg/dL High: | LABORATORY | | 200-499 mg/dL Very High: >=500 mg/dL | [place] | + + + + + + + + | Performing | Address | City/State/Zipcode | Phone Number | | Organization | | | | + + + + + | [facility] | [address] [facility] | [place] [address] | | | [place] | [place] [...] | + + + + + | [facility] | [address] | [place] [address] | | | SERVICES, CORE | PARK [...] | | | LABORATORY | | | AFGHAN | | | SERVICES, | | | [...] | + + + + + | [facility] | [address] [facility] | [place] [address] | | | [place] | VILMA [...] | + + + + + | [facility] | [address] | [place] [address] | | | SERVICES, NATALEE | PARK [...] DEPT OF | [address] | [place], [place] | | | CARDIOLOGY | [address] | [address] | | + + + + + [...] OF | [address] | [place], [place] | | | CARDIOLOGY | [address] | [address] | | + + + + + [...] | + + + + + | [facility] | [address] | [place] [address] | | | SERVICES, CORE | PARK [...] [facility] DEPT OF | [address] [facility] | [place], [place] | | | CARDIOLOGY | [address] | [address] | | + + + + + [...] | | | LABORATORY | | | AFGHAN | | | SERVICES, | | | [...] | + + + + + | [facility] | [address] | [place] [address] | | | SERVICES, CORE | PARK [...] | + + + + + | [facility] | [address] | [place] [address] | | | SERVICES, CORE | [address] | | | + + + + + 12 LEAD ECG (11/13/2017 9:41 AM PDT) + + + + + + | Component | Value | Ref Range | Performed | Pathologist | | | | | At | Signature | + + + + + + | VENTRICULAR | 64 | bpm | [facility] DEPT | | | RATE | [...] DEPT OF | [address] | [place], [place] | | | CARDIOLOGY | [address] | [address] | | + + + + + [...] [facility] | [address] | [place] [address] | | | SERVICES, CORE | PARK [...] | | | LABORATORY | | | AFGHAN | | | SERVICES, | | | [...] | + + + + + | [facility] | [address] | [place] [address] | | | ELIN, NATALEE | VILMA [...] - | | | | | | [facility] | | + + + + + + | URINE | Urine Protein is less | | [facility] - | | | ELECTOPHORE | than 30 mg/dL, | | AIRPORT - | | | SIS CMNT | electrophoresis not | | [place] | | | | performed.Comment: | | [...] + | [facility] - | [address] | [place] [address] | | | [facility] | | | | + + + [...] DEPT OF | [address] | [place], [place] | | | CARDIOLOGY | [address] | [address] | | + + + + + [...] | + + + + + | [facility] | [address] | [place] [address] | | | [place] | PARK [...] + | [facility] - | [address] | [place] [address] | | | [place] | | | [...] DEPT OF | [address] | [place], [place] | | | CARDIOLOGY | [address] | [address] | | + + + + + [...] | + + + + + | [facility] | [address] | [place] [address] | | | SERVICES, CORE | PARK [...] + | [facility] - | [address] | [place] [address] | | | [place] | | | | + + + [...] | + + + + + | [facility] | [address] | [place] [address] | | | [place] | PARK [...] | + + + + + | [facility] | [address] [facility] | [place] [address] | | | SERVICES, CORE | PARK [...] [facility] | [address] | [place] [address] | | | SERVICES, CORE | PARK [...] | | | LABORATORY | | | AFGHAN | | | SERVICES, | | | [...] | + + + + + | [facility] [employer] [facility] | [address] | [place] [address] | | | SERVICES, CORE | VILMA [...] | + + + + + | [facility] | [address] | [place] [address] | | | SERVICES, CORE | VILMA [...] [facility] | [address] | [place] [address] | | | SERVICES, CORE | PARK [...] | | | LABORATORY | | | AFGHAN | | | SERVICES, | | | [...] [facility] | [address] | [place] [address] | | | SERVICES, CORE | VILMA [...] DEPT OF | [address] | [place], [place] | | | CARDIOLOGY | [address] | [address] | | + + + + + [...] | + + + + + | [facility] | [address] | [place] [address] | | | SERVICES, CORE | VILMA [...] | | | LABORATORY | | | AFGHAN | | | SERVICES, | | | [...] | + + + + + | [facility] | [address] | [place] [address] | | | ELIN, NATALEE | PARK [...] [facility] | [address] | [place] [address] | | | SERVICES, CORE | VILMA [...] | | | LABORATORY | | | AFGHAN | | | SERVICES, | | | [...] | + + + + + | [facility] [employer] | [address] [facility] | [place] [address] | | | NATALEE [place] | VILMA [...] now presented. | | | |Final signature: uNbia Batista MD 11/08/2017 2:30 PM | |Preliminary: [...] [facility] | [address] | [place] [address] | | | SERVICES, NATALEE | VILMA [...] | | | LABORATORY | | | AFGHAN | | | SERVICES, | | | [...] [facility] | [address] | [place] [address] | | | SERVICES, CORE | VILMA [...] DEPT OF | [address] | [place], [place] | | | CARDIOLOGY | [address] | [address] | | + + + + + [...] presented. | | | |Final signature: Master Bneder MD 11/07/2017 4:04 PM | |Preliminary: Leif [...] [facility] DEPT OF | [address] [facility] | [place], [place] | | | CARDIOLOGY | [address] | [address] | | + + + + + [...] | | | LABORATORY | | | AFGHAN | | | SERVICES, | | | [...] | + + + + + | [facility] | [address] | [place] [address] | | | SERVICES, CORE | VILMA [...] | + + + + + | [facility] | [address] | [place] [address] | | | SERVICES, CORE | PARK [...] + + + + | PRODUCT | [id number] | | [facility] | | | UNIT [...] + + + + | EXPIRATION | [id number] | | [facility] | | | DATE [...] + + + + | BLOOD | [id number] | | [facility] | | | PRODUCT [...] [facility] | [address] | [place] [address] | | | SERVICES, | [address] [...] + + + + | PRODUCT | [id number] | | [facility] | | | UNIT [...] + + + + | EXPIRATION | [id number] | | [facility] | | | DATE [...] + + + + | BLOOD | [id number] | | [facility] | | | PRODUCT [...] | + + + + + | [facility] [facility] | [address] | [place] [address] | | | SERVICES, | [address] [...] [facility] | [address] | [place] [address] | | | NATALEE [place] | PARK [...] + + | [facility] | [address] [facility] | [place] [address] | | | SERVICES, NATALEE | VILMA [...] | | | LABORATORY | | | AFGHAN | | | SERVICES, | | | [...] | + + + + + | [facility] | [address] | [place] [address] | | | SERVICES, CORE | [address] | | | + + + + + OPERATION RECORD (11/06/2017 12:27 AM PDT) + + | Procedure Note | + + | Magdiel Stock MD - 11/06/2017 12:27 AM PDT Date of Service: 11/05/2017 Attending | | Surgeon: Magdiel Stock MD Electronic Prepress Operator(s): Rg Aiken MD | | Preoperative [...] head was placed in a horseshoe head track coach with his C-collar still | | [...] the incision down to the cranium. Once chilkoot | | skull was reached circumferentially around the prior incision, a #1 Huguenot was used | | to subperiosteally dissect [...] for this encounter.Sonal Nunez, | | СЕРГЕЙ [id number] [place], [place] | | [id number] Orina, MDJB/MODLDD: 11/05/2017 20:38:01DT: 11/06/2017 | | 00:27:33Job #: [id number] | |HATTIE/DUC | | | | | | /[id number] | + + CT HEAD WO CONTRAST [...] Surgeon: Magdiel | | | MD Dayami Electronic Prepress Operator: Rg Aiken MD Pre-op Diagnosis: | [...] PGY-4 Neurological Surgery Pager | | | [phone] | | + + + CAPILLARY BLOOD [...] [facility] | [address] | [place], [place] | | | [facility] | [address] | [address] | | | TESTS | | | [...] [facility] | [address] | [place], [place] | | | [facility] | [facility] | [address] | | | TESTS | | | [...] Note | + + | Service Account, [employer] In Interface - 11/05/2017 11:31 AM PDT [...] | + + + + + | [facility] | [address] | [place] [address] | | | SERVICES, CORE | PARK [...] | [facility] | [address] [facility] | [place] [address] | | | SERVICES, CORE | PARK [...] | | | LABORATORY | | | AFGHAN | | | SERVICES, | | | [...] the MDRD equation recommended by the | [facility] | | National Kidney Disease Education [...] [facility] | [address] | [place] [address] | | | SERVICES, CORE | VILMA [...] | + + + + + | [facility] | [address] | [place] [address] | | | ELIN, NATALEE | VILMA [...] + + + + | PRODUCT | [id number] | | [facility] | | | UNIT [...] + + + + | EXPIRATION | [id number] | | [facility] | | | DATE [...] + + + + | BLOOD | [id number] | | [facility] | | | PRODUCT [...] | + + + + + | [facility] | [address] | [place] [address] | | | SERVICES, | [address] [...] + + + + | PRODUCT | [id number] | | [facility] | | | UNIT [...] + + + + | EXPIRATION | [id number] | | [facility] | | | DATE [...] + + + + | BLOOD | [id number] | | [facility] | | | PRODUCT [...] | + + + + + | [facility] | [address] | [place] [address] | | | SERVICES, | [address] [...] [facility] | [address] | [place] [address] | | | NATALEE [place] | VILMA [...] [facility] | [address] | [place] [address] | | | SERVICES, | [address] [...] | + + + + + | [facility] | [address] | [place] [address] | | | SERVICES, | [address] [...] | + + + + + | [facility] | [address] | [place] [address] | | | SERVICES, CORE | PARK [...] DEPT OF | [address] | [place], [place] | | | CARDIOLOGY | [address] | [address] | | + + + + + [...] [facility] | [address] | [place] [address] | | | SERVICES, CORE | PARK [...] | + + + + + | [facility] | [address] | [place] [address] | | | SERVICES, CORE | VILMA [...] + | [facility] | [address] | [place] [address] | | | [place] | | | [...] [facility] | [address] | [place] [address] | | | SERVICES, NATALEE | VILMA [...] [facility] | [address] | [place] [address] | | | SERVICES, CORE | PARK [...] | | | LABORATORY | | | AFGHAN | | | SERVICES, | | | [...] the MDRD equation recommended by the | [facility] | | National Kidney Disease Education [...] | + + + + + | [facility] | [address] | [place] [address] | | | SERVICES, CORE | [address] | | | + + + + + MAGNESIUM, PLASMA (11/04/2017 5:59 AM PDT) + +-------+ + + + | Component | Value | Ref Range | Performed | Pathologist | | | | | At | Signature | + +-------+ + + + | MAGNESIUM,P | 2.1 | 1.6 - 2.6 mg/dL | [facility] | | | LASMA | | [...] [facility] | [address] | [place] [address] | | | SERVICES, CORE | VILMA [...] | + + + + + | [facility] | [address] | [place] [address] | | | NATALEE [place] | PARK [...] | | | LABORATORY | | | AFGHAN | | | SERVICES, | | | [...] | + + + + + | [facility] | [address] | [place] [address] | | | SERVICES, CORE | PARK [...] [facility] | [address] | [place] [address] | | | SERVICES, CORE | PARK [...] | | | LABORATORY | | | AFGHAN | | | SERVICES, | | | [...] the MDRD equation recommended by the | [facility] | | National Kidney Disease Education [...] | + + + + + | [facility] | [address] | [place] [address] | | | NATALEE [place] | VILMA [...] GEET OF | [address] | [place], [place] | | | CARDIOLOGY | [address] | [address] | | + + + + + [...] | + + + + + | [facility] | [address] [facility] | [place] [address] | | | SERVICES, CORE | PARK [...] | | | LABORATORY | | | AFGHAN | | | SERVICES, | | | [...] | + + + + + | [facility] | [address] [facility] | [place] [address] | | | SERVICES, CORE | VILMA [...] Note | + + | Service Account, [employer] Res In Interface - 10/31/2017 8:22 PM [...] trauma on 10/31/2017 7:[address] Soolmon. I | | have personally reviewed the [...] [facility] | [address] [facility] | [place], [place] | | | CARDIOLOGY | [address] | [address] | | + + + + + [...] | | | LABORATORY | | | AFGHAN | | | SERVICES, | | | [...] | + + + + + | [facility] | [address] | [place] [address] | | | SERVICES, CORE | PARK [...] [facility] | [address] | [place] [address] | | | SERVICES, NATALEE | VILMA [...] [facility] | [address] | [place], [place] | | | [facility] | [address] | [address] | | | TESTS | | | [...] [facility] | [address] | [place] [address] | | | SERVICES, CORE | PARK [...] | | | LABORATORY | | | AFGHAN | | | SERVICES, | | | [...] | + + + + + | [facility] | [address] | [place] [address] | | | NATALEE [place] | VILMA [...] Note | + + | Service Account, [employer] In Interface - 10/29/2017 12:13 PM PDT [...] [facility] | [address] | [place], [place] | | | [facility] | [address] | [address] | | | TESTS | | | [...] | + + + + + | [facility] | [address] [facility] | [place] [address] | | | SERVICES, CORE | VILMA [...] | | | LABORATORY | | | AFGHAN | | | SERVICES, | | | [...] the MDRD equation recommended by the | [facility] | | National Kidney Disease Education [...] | + + + + + | [facility] | [address] | [place] [address] | | | SERVICES, CORE | VILMA [...] [facility] | [address] | [place], [place] | | | [facility] | [address] | [address] | | | TESTS | | | [...] DEPT OF | [address] | [place], [place] | | | CARDIOLOGY | [facility] | [address] | | + + + + + [...] [facility] | [address] | [place], [place] | | | [facility] | [facility] | [address] | | | TESTS | | | [...] [facility] | [address] | [place], [place] | | | [facility] | [address] | [address] | | | TESTS | | | [...] + + + + + | [facility] | [address] | [place] [address] | | | SERVICES, CORE | PARK [...] + | [facility] | [address] | [place] [address] | | | [place] | | | [...] [facility] | [address] | [place] [address] | | | SERVICES, CORE | PARK [...] | + + + + + | [facility] | [address] | [place] [address] | | | SERVICES, CORE | VILMA [...] [facility] | [address] | [place] [address] | | | SERVICES, CORE | PARK [...] | | | LABORATORY | | | AFGHAN | | | SERVICES, | | | [...] the MDRD equation recommended by the | [facility] | | National Kidney Disease Education [...] | + + + + + | [facility] | [address] | [place] [address] | | | NATALEE [place] | VILMA [...] | + + + + + | [facility] | [address] | [place] [address] | | | NATALEE [place] | VILMA [...] [facility] | [address] | [place], [place] | | | [facility] | [address] | [address] | | | TESTS | | | [...] [facility] | [address] | [place], [place] | | | [facility] | [address] | [address] | | | TESTS | | | [...] Note | + + | Service Account, Scripped Res In Interface - 10/28/2017 9:21 AM [...] TPN Procedure | | | location: Unit:[facility] Room: 4 Providers: Attending [...] correct | | | patient, procedure, equipment, behaviour support teacher and site/side marked as | | [...] vein. Catheter lot number: | | | [id number] with a length of 55 cm was [...] [facility] | [address] | [place], [place] | | | [facility] | [address] | [address] | | | TESTS | | | [...] | [facility] DEPT OF | [address] | [place], [place] | | | CARDIOLOGY | [address] | [address] | | + + + + + [...] [facility] | [address] | [place], [place] | | | [facility] | [address] | [address] | | | TESTS | | | [...] | + + + + + | [facility] | [address] [facility] | [place] [address] | | | NATALEE [place] | PARK [...] | | | LABORATORY | | | AFGHAN | | | SERVICES, | | | [...] | + + + + + | [facility] | [address] | [place] [address] | | | SERVICES, CORE | VILMA [...] (H) | 70 - 99 mg/dL | [facility] - | | | GLUCOSE, | [...] [facility] | [address] | [place], [place] | | | [facility] | [facility] | [address] | | | TESTS | | | [...] [facility] | [address] | [place], [place] | | | [facility] | [facility] | [address] | | | TESTS | | | [...] (H) | 70 - 99 mg/dL | [facility] - | | | GLUCOSE, | [...] [facility] | [address] | [place], [place] | | | [facility] | [address] | [address] | | | TESTS | | | [...] [facility] | [address] | [place] [address] | | | SERVICES, CORE | PARK [...] | | | LABORATORY | | | AFGHAN | | | SERVICES, | | | [...] the MDRD equation recommended by the | [facility] | | National Kidney Disease Education [...] | + + + + + | [facility] | [address] | [place] [address] | | | SERVICES, CORE | PARK [...] - [facility] | [address] | [place], [place] | | | [facility] [facility] | [address] | [address] | | | TESTS | | | [...] | | | LABORATORY | | | AFGHAN | | | SERVICES, | | | [...] | + + + + + | [facility] | [address] | [place] [address] | | | SERVICES, CORE | VILMA [...] 87 | 70 - 99 mg/dL | [facility] - | | | GLUCOSE, | [...] [facility] | [address] | [place], [place] | | | [facility] | [address] | [address] | | | TESTS | | | [...] DEPT OF | [address] | [place], [place] | | | CARDIOLOGY | [address] | [address] | | + + + + + [...] [facility] | [address] | [place], [place] | | | [facility] | [address] | [address] | | | TESTS | | | [...] [facility] | [address] | [place], [place] | | | CARDIOLOGY | [address] | [address] | | + + + + + [...] | + + + + + | [facility] [employer] | [address] | [place] [address] | | | SERVICES, CORE | VILMA [...] - | | | | | | [place] | | + + + + + + + + | Specimen | + + | Blood - Blood | | (substance) | + + + + + + + | Performing | Address | City/State/Zipcode | Phone Number | | Organization | | | | + + + + + | [facility] | [address] | [place] [address] | | | [place] | | | | + + + [...] | + + + + + | [facility] | [address] | [place] [address] | | | SERVICES, CORE | PARK [...] [facility] | [address] | [place] [address] | | | SERVICES, CORE | VILMA [...] | + + + + + | [facility] | [address] | [place] [address] | | | SERVICES, NATALEE | PARK [...] | + + + + + | [facility] | [address] | [place] [address] | | | SERVICES, CORE | PARK [...] | + + + + + | [employer] | [address] | [place] [address] | | | SERVICES, CORE | VILMA [...] [facility] | [address] | [place] [address] | | | SERVICES, CORE | PARK [...] | + + + + + | [facility] | [address] | [place] [address] | | | SERVICES, CORE | VILMA [...] [facility] | [address] | [place] [address] | | | SERVICES, CORE | VILMA [...] [facility] | [address] | [place] [address] | | | SERVICES, NATALEE | PARK [...] [facility] | [address] | [place] [address] | | | SERVICES, CORE | PARK [...] | | | LABORATORY | | | AFGHAN | | | SERVICES, | | | [...] the MDRD equation recommended by the | [facility] | | National Kidney Disease Education [...] | + + + + + | [facility] | [address] | [place] [address] | | | NATALEE [place] | VILMA [...] Note Indications:TPN Procedure location: | | | Unit:[facility] Room: 4 Providers: Attending name: Attending physically [...] | | | correct patient, procedure, equipment, behaviour support teacher and site/side | | | marked [...] | area Basilic vein. Catheter lot number: [id number] with a length of 55 | | [...] Preliminary: Julian Perkins MD Dictation initiated: Julian ePrkins MD | | 10/24/2017 3:40 PM | [...] + + | [facility] | [address] [facility] [address] | [place], [place] | | | [facility] [facility] | [address] | [address] | | | TESTS | | | [...] | | Surgical Critical Care, PGY7 Pager: [phone] | | + + + CAPILLARY BLOOD [...] [facility] | [address] | [place], [place] | | | [facility] | [address] | [address] | | | TESTS | | | [...] [facility] | [address] | [place], [place] | | | [facility] | [address] | [address] | | | TESTS | | | [...] | | | LABORATORY | | | AFGHAN | | | SERVICES, | | | [...] | + + + + + | [facility] | [address] [facility] | [place] [address] | | | SERVICES, CORE | VILMA [...] | + + + + + | [facility] | [address] [facility] | [place] [address] | | | SERVICES, CORE | VILMA [...] R[facility]EL[facility] | [address] | [place], [place] | | | [facility] | [address] | [address] | | | TESTS | | | [...] | + + + + + | [facility] | [address] [facility] | [place] [address] | | | SERVICES, [facility] | [address] | [...] | | | LABORATORY | | | AFGHAN | | | SERVICES, | | | [...] | + + + + + | [facility] | [address] | [place] [address] | | | SERVICES, CORE | PARK [...] DEPT OF | [address] | [place], [place] | | | CARDIOLOGY | [address] | [address] | | + + + + + IR GASTROSTOMY TUBE EXCHANGE (10/22/2017 2:42 PM PDT) + + | Specimen | + + | | + + + + + | Narrative | Performed At | + + + | Procedure: Gastrostomy tube exchange Primary attending | [facility] | | rip/mould operator: Shade Nix M.D. Preoperative diagnosis: | RADIOLOGY VOICE | | Malfunctioning Gastrostomy tube Postoperative diagnosis: Same | RECOGNITION | | Operations: Operation 1. Removal of existing Gastrostomy tube | | | over a guide wire Operation 2. Placement of 24 Lebanese GABRIEL | | | gastrostomy over guide [...] a stiff glide wire the new 24 Lebanese gastrostomy tube was | | | inserted. [...] Procedure: | | Gastrostomy tube exchangePrimary attending rip/mould operator: Shade Nix, | | BrynPreoperative diagnosis: Malfunctioning [...] Note | + + | Service Account, Scripped Res In Interface - 10/22/2017 10:34 AM [...] | + + + + + | [facility] | [address] | [place], [place] | | | CARDIOLOGY | [address] | [address] | | + + + + + [...] | + + + + + | [facility] | [address] [facility] | [place] [address] | | | SERVICES, CORE | VILMA [...] | | | LABORATORY | | | AFGHAN | | | SERVICES, | | | [...] | + + + + + | [facility] | [address] | [place] [address] | | | SERVICES, CORE | VILMA [...] DEPT OF | [address] | [place], [place] | | | CARDIOLOGY | [address] | [address] | | + + + + + [...] | | | LABORATORY | | | AFGHAN | | | SERVICES, | | | [...] [facility] | [address] | [place] [address] | | | SERVICES, CORE | PARK [...] [facility] | [address] | [place] [address] | | | SERVICES, CORE | VILMA [...] DEPT OF | [address] | [place], [place] | | | CARDIOLOGY | [address] | [address] | | + + + + + [...] | + + + + + | [facility] | [address] | [place] [address] | | | SERVICES, CORE | PARK [...] | | | LABORATORY | | | AFGHAN | | | SERVICES, | | | [...] | + + + + + | [facility] | [address] | [place] [address] | | | SERVICES, CORE | VILMA [...] DEPT OF | [address] | [place], [place] | | | CARDIOLOGY | [address] | [address] | | + + + + + [...] | | | LABORATORY | | | AFGHAN | | | SERVICES, | | | [...] [facility] | [address] | [place] [address] | | | SERVICES, CORE | PARK [...] [facility] | [address] | [place] [address] | | | NATALEE [place] | VILMA [...] OF | [address] | [place], [place] | | | CARDIOLOGY | [address] | [address] | | + + + + + [...] | | | LABORATORY | | | AFGHAN | | | SERVICES, | | | [...] the MDRD equation recommended by the | [facility] | | National Kidney Disease Education [...] [facility] | [address] | [place] [address] | | | SERVICES, CORE | PARK [...] | + + + + + | [facility] | [address] | [place] [address] | | | SERVICES, CORE | VILMA [...] DEPT OF | [address] | [place], [place] | | | CARDIOLOGY | [facility] | [address] | | + + + + + CAPILLARY BLOOD GLUCOSE (NO CHG), POC (10/15/2017 6:01 AM PDT) + +---------+ + + + | Component | Value | Ref Range | Performed | Pathologist | | | | | At | Signature | + +---------+ + + + | BLOOD | 134 (H) | 70 - 99 mg/dL | [facility] - | | | GLUCOSE, | [...] [facility] | [address] | [place], [place] | | | [facility] | [address] | [address] | | | TESTS | | | [...] | + + + + + | [facility] | [address] | [place] [address] | | | NATALEE [place] | VILMA [...] - [facility] | [address] | [place], [place] | | | [facility] [employer] | [address] | [address] | | | TESTS | | | [...] DEPT OF | [address] | [place], [place] | | | CARDIOLOGY | [address] | [address] | | + + + + + [...] [facility] | [address] | [place] [address] | | | NATALEE [place] | VILMA [...] | | | LABORATORY | | | AFGHAN | | | SERVICES, | | | [...] | + + + + + | [facility] [employer] | [address] [facility] | [place] [address] | | | SERVICES, CORE | VILMA [...] | + + + + + | [employer] | [address] | [place] [address] | | | SERVICES, CORE | VILMA [...] [facility] | [address] | [place], [place] | | | [employer] | [address] [address] | [address] | | | TESTS | | | [...] [facility]EL[facility] | [address] | [place], [place] | | | [facility] [facility] | [address] | [address] | | | TESTS | | | [...] | + + + + + | [facility] | [address] | [place] [address] | | | SERVICES, CORE | VILMA [...] | | | LABORATORY | | | AFGHAN | | | SERVICES, | | | [...] | + + + + + | [facility] | [address] | [place] [address] | | | SERVICES, NATALEE | [address] | | | + + + + + OPERATION RECORD (10/12/2017 8:50 PM PDT) + + | Procedure Note | + + | Pilar Cotto MD - 10/12/2017 8:50 PM PDT Date of Service: 10/12/2017 | | Attending Surgeon: Chaz Hernandez MD Electronic Prepress Operator(s): Randell Dixon M.D., | | fellow. George Nroiega M.D., R2 Pilar Cotto, | | Bryn, [...] preoperative concerns were | | addressed. Mr. Temlpe was then prepped and draped in the [...] 10/12/2017 19:50:06DT: 10/12/2017 20:50:54Job #: | | [id number] | + + X-RAY PORTABLE CHEST 1 [...] [facility] | [address] | [place], [place] | | | [facility] | [address] | [address] | | | TESTS | | | [...] [facility] | [address] | [place] [address] | | | SERVICES, CORE | PARK [...] | | | LABORATORY | | | AFGHAN | | | SERVICES, | | | [...] [facility] | [address] | [place] [address] | | | SERVICES, CORE | PARK [...] | + + + + + | [facility] | [address] | [place] [address] | | | NATALEE [place] | VILMA [...] DEPT OF | [address] | [place], [place] | | | CARDIOLOGY | [address] | [address] | | + + + + + [...] DEPT OF | [address] | [place], [place] | | | CARDIOLOGY | [address] | [address] | | + + + + + [...] [facility] | [address] | [place] [address] | | | SERVICES, CORE | VILMA [...] [facility] | [address] | [place] [address] | | | SERVICES, CORE | PARK [...] | | | LABORATORY | | | AFGHAN | | | SERVICES, | | | [...] | + + + + + | [facility] | [address] | [place] [address] | | | NATALEE [place] | [address] | | | + + + + + PROCEDURE NOTE (10/10/2017 10:00 PM PDT) + + + | Narrative | Performed At | + + + | Darius Link MD 10/12/2017 11:11 AM OPERATIVE REPORT | | | DATE OF OPERATION: 10/10/2017 ATTENDING SURGEON: 1. Dr. Hernandez | | | BEAUTY THERAPIST: 1. Darius Link MD INDICATIONS: Dysphagia | | | and need for extermination inspector nutrition access PREOPERATIVE DIAGNOSIS: | | | 1.Dysphagia and need for extermination inspector nutrition access | | | POSTOPERATIVE DIAGNOSIS: [...] | | | [place] [address] Chief Resident | | | Neurosurgery | [...] | + + + + + | [facility] | [address] | [place] [address] | | | SERVICES, CORE | VILMA [...] | | | LABORATORY | | | AFGHAN | | | SERVICES, | | | [...] the MDRD equation recommended by the | [facility] | | National Kidney Disease Education [...] [facility] | [address] | [place] [address] | | | SERVICES, CORE | PARK [...] [facility] | [address] | [place] [address] | | | SERVICES, NATALEE | [address] | | | + + + + + OPERATION RECORD (10/10/2017 12:40 PM PDT) + + | Procedure Note | + + | Magdiel Stock MD - 10/10/2017 12:40 PM PDT Date of Service: 10/10/2017 Attending | | Surgeon: Magdiel Stock MD Electronic Prepress Operator(s): Cecilia Jackson, | | . Preoperative Diagnoses: [...] the note for this encounter.Sonal Nunez MDOHSU [id number] [facility] | | [place] [id number] Orina, MDFAH/MODLDD: | | 10/10/2017 11:52:15DT: 10/10/2017 12:40:41Job #: [id number] | | | | | |I was present for the critical portions of the procedure as described in the note for this encounter. | | | |Magdiel Stock MD | | | |Magdiel Stock MD | |[address] | |[address] [facility] [address] | |[facility] | |[place] [address] | |[phone] | | | | | |Magdiel Stock MD | |FAH/MODL | | | | | | /[id number] | + + X-RAY ABDOMEN 1 VIEW [...] + | [facility] | [address] | [place] [address] | | | [place] | | | [...] + | [facility] | [address] | [place] [address] | | | [place] | | | | + + + [...] 1+ Pseudomonas aeruginosa Refer to culture | [facility] | | collected 10/10/17 at 0903 for susceptibilities No anaerobic | [facility] - | | organisms isolated Gram Stain: No squamous epithelial cells | [place] | | Many polymorphonuclear cells No organisms seen | | + + + + + + + + | Performing | Address | City/State/Zipcode | Phone Number | | Organization | | | | + + + + + | [facility] | [address] | [place] [address] | | | [place] | | | | + + + [...] detected | [facility] - | | | [place] | + + + + + + + + | Performing | Address | City/State/Zipcode | Phone Number | | Organization | | | | + + + + + | [facility] | [address] | [place] [address] | | | [place] | | | [...] + | [facility] | [address] | [place] [address] | | | [place] | | | [...] Gram Stain: No squamous epithelial cells | [facility] | | Many polymorphonuclear cells No organisms seen | | + + + + + + + + | Performing | Address | City/State/Zipcode | Phone Number | | Organization | | | | + + + + + | [facility] | [address] | [place] [address] | | | [place] | | | [...] + | [facility] | [address] | [place] [address] | | | [place] | | | [...] Gram Stain: No squamous epithelial cells | [place] | | Few polymorphonuclear cells No organisms seen | | + + + + + + + + | Performing | Address | City/State/Zipcode | Phone Number | | Organization | | | | + + + + + | [facility] | [address] | [place] [address] | | | [place] | | | [...] No squamous epithelial cells No polymorphonuclear | [facility] - | | cells No organisms seen | [place] | + + + + + + + + | Performing | Address | City/State/Zipcode | Phone Number | | Organization | | | | + + + + + | [facility] | [address] | [place] [address] | | | [place] | | | [...] + | [facility] | [address] | [place] [address] | | | [place] | | | | + + + [...] Gram Stain: No squamous epithelial cells | [place] | | Moderate polymorphonuclear cells No organisms seen | | + + + + + + + + | Performing | Address | City/State/Zipcode | Phone Number | | Organization | | | | + + + + + | [facility] | [address] | [place] [address] | | | [place] | | | | + + + [...] detected | [facility] - | | | [place] | + + + + + + + + | Performing | Address | City/State/Zipcode | Phone Number | | Organization | | | | + + + + + | [facility] | [address] | [place] [address] | | | [place] | | | [...] + | [facility] | [address] | [place] [address] | | | [place] | | | [...] + | [facility] | [address] | [place] [address] | | | [place] | | | | + + + [...] + | [facility] | [address] | [place] [address] | | | [facility] | | | | + + + [...] + | [facility] | [address] | [place] [address] | | | [place] | | | | + + + [...] Gram Stain: No squamous epithelial cells | [place] | | Moderate polymorphonuclear cells No organisms seen | | + + + + + + + + | Performing | Address | City/State/Zipcode | Phone Number | | Organization | | | | + + + + + | [facility] | [address] | [place] [address] | | | [place] | | | | + + + [...] + | [facility] | [address] | [place] [address] | | | [place] | | | | + + + [...] [facility] | [address] | [place] [address] | | | SERVICES, CORE | PARK [...] [facility] | [address] | [place] [address] | | | SERVICES, CORE | PARK [...] [facility] | [address] | [place] [address] | | | ELIN, NATALEE | VIL[address] [...] | | | LABORATORY | | | AFGHAN | | | SERVICES, | | | [...] | + + + + + | [facility] [facility] | [address] [facility] | [place] [address] | | | SERVICES, NATALEE | VILMA [...] DEPT OF | [address] | [place], [place] | | | CARDIOLOGY | [address] | [address] | | + + + + + [...] + + + + | PRODUCT | [id number] | | [facility] | | | UNIT [...] + + + + | EXPIRATION | [id number] | | [facility] | | | DATE [...] + + + + | BLOOD | [id number] | | [facility] | | | PRODUCT [...] [facility] | [address] | [place] [address] | | | SERVICES, | [address] [...] + + + + | PRODUCT | [id number] | | [facility] | | | UNIT [...] + + + + | EXPIRATION | [id number] | | [facility] | | | DATE [...] + + + + | BLOOD | [id number] | | [facility] | | | PRODUCT [...] | + + + + + | [facility] | [address] | [place] [address] | | | SERVICES, | [address] [...] SELE[facility] | [address] | [place] [address] | | | SERVICES, | [address] [...] [facility] | [address] | [place] [address] | | | SERVICES, | [address] [...] | + + + + + | [facility] | [address] | [place] [address] | | | SERVICES, | [address] [...] | + + + + + | [facility] | [address] | [place] [address] | | | SERVICES, CORE | PARK [...] DEPT OF | [address] | [place], [place] | | | CARDIOLOGY | [address] | [address] | | + + + + + [...] Note | + + | Service Account, [employer] In Interface - 10/08/2017 10:47 AM PDT [...] [facility] | [address] | [place], [place] | | | [facility] | [address] | [address] | | | TESTS | | | [...] | + + + + + | [facility] | [address] | [place] [address] | | | SERVICES, CORE | PARK [...] [facility] | [address] | [place] [address] | | | SERVICES, NATALEE | VIL[address] [...] | | | LABORATORY | | | AFGHAN | | | SERVICES, | | | [...] | + + + + + | [facility] | [address] | [place] [address] | | | SERVICES, CORE | VILMA [...] [facility] | [address] | [place], [place] | | | [facility] | [address] | [address] | | | TESTS | | | [...] [facility] | [address] | [place] | | | [facility] | [address] | [address] | | | TESTS | | | [...] [facility] | [address] | [place], [place] | | | [facility] | [address] | [address] | | | TESTS | | | [...] [facility] | [address] | [place] | | | [facility] | [address] | [address] | | | TESTS | | | [...] - [facility] | [address] | [place] | | | [facility] | [address] | [address] | | | TESTS | | | [...] | + + + + + | [facility] | [address] | [place] [address] | | | SERVICES, NATALEE | VILMA [...] | + + + + + | [facility] | [address] | [place] [address] | | | SERVICES, CORE | VILMA [...] | | | LABORATORY | | | AFGHAN | | | SERVICES, | | | [...] | + + + + + | [facility] | [address] | [place] [address] | | | SERVICES, CORE | VILMA [...] 99 | 70 - 99 mg/dL | [facility] - | | | GLUCOSE, | [...] [facility] | [address] | [place], [place] | | | [facility] | [address] | [address] | | | TESTS | | | [...] [facility] | [address] | [place], [place] | | | [facility] | [address] | [address] | | | TESTS | | | [...] DEPT OF | [address] | [place], [place] | | | CARDIOLOGY | [facility] | [address] | | + + + + + [...] [facility] | [address] | [place], [place] | | | [facility] | [address] | [address] | | | TESTS | | | [...] [facility] | [address] | [place] [address] | | | NATALEE [place] | [address] [...] | + + + + + | [facility] | [address] [facility] | [place] [address] | | | SERVICES, CORE | VILMA [...] | | | LABORATORY | | | AFGHAN | | | SERVICES, | | | [...] | + + + + + | [facility] | [address] | [place] [address] | | | SERVICES, CORE | VILMA [...] (H) | 70 - 99 mg/dL | [facility] - | | | GLUCOSE, | [...] [facility] | [address] | [place], [place] | | | [facility] | [address] | [address] | | | TESTS | | | [...] [facility] | [address] | [place], [place] | | | [facility] | [address] | [address] | | | TESTS | | | [...] [facility] | [address] | [place], [place] | | | [facility] | [address] | [address] | | | TESTS | | | [...] + + + | [facility] | [address] | [place], [place] | | | [facility] | [address] | [address] | | | TESTS | | | [...] OF | [address] | [place], [place] | | | CARDIOLOGY | [address] | [address] | | + + + + + [...] | + + + + + | [facility] | [address] | [place] [address] | | | SERVICES, CORE | PARK [...] [facility] | [address] | [place] [address] | | | SERVICES, CORE | PARK [...] | | | LABORATORY | | | AFGHAN | | | SERVICES, | | | [...] | + + + + + | [facility] | [address] | [place] [address] | | | NATALEE [place] | [address] [...] (H) | 70 - 99 mg/dL | [facility] - | | | GLUCOSE, | [...] [facility] | [address] | [place] | | | [facility] | [address] | [address] | | | TESTS | | | [...] [facility] | [address] | [place], [place] | | | [facility] [employer] | [facility] | [address] | | | TESTS | | | [...] [facility] | [address] | [place], [place] | | | [facility] | [facility] | [address] | | | TESTS | | | [...] (H) | 70 - 99 mg/dL | [facility] - | | | GLUCOSE, | [...] [facility] | [address] | [place] | | | [facility] | [address] | [address] | | | TESTS | | | [...] [facility] | [address] | [place], [place] | | | [facility] [employer] | [facility] | [address] | | | TESTS | | | [...] | + + + + + | [facility] | [address] | [place] [address] | | | SERVICES, CORE | PARK [...] [facility] | [address] | [place] [address] | | | ELIN, NATALEE | [address] [...] | | | LABORATORY | | | AFGHAN | | | SERVICES, | | | [...] | + + + + + | [facility] | [address] [facility] | [place] [address] | | | SERVICES, CORE | VILMA [...] [facility] | [address] | [place], [place] | | | [facility] | [facility] | [address] | | | TESTS | | | [...] - [facility] | [address] | [place] | | | [facility] [facility] | [address] | [address] | | | TESTS | | | [...] | + + + + + | [facility] | [address] | [place] [address] | | | SERVICES, CORE | VILMA [...] by | | | | | | [id number] | | | | | | Rogelio Pickard, [facility],[place] | | | | | | [id number] | | | | | | [phone][employer]. | | | | | | Gui [...] [facility] | [address] | [place], [place] | | | [facility] | | [phone] | | + + + + + [...] [facility] | [address] | [place] [address] | | | SERVICES, CORE | PARK [...] [facility] | [address] | [place] [address] | | | SERVICES, CORE | PARK [...] modified from | [facility] | | original thermostat mechanic's approved specifications. The performance | LABORATORY | | of the [employer] HIV Combo test, with or without confirmation, [...] | + + + + + | [facility] | [address] | [place] [address] | | | SERVICES, SPECIAL | VILMA [...] (H) | 70 - 99 mg/dL | [facility] - | | | GLUCOSE, | [...] + + + | [facility] | [address] | [place], [place] | | | [facility] | [address] | [address] | | | TESTS | | | [...] [facility] | [address] | [place] | | | [facility] | [address] | [address] | | | TESTS | | | [...] [facility] | [address] | [place] [address] | | | SERVICES, NATALEE | PARK [...] [facility] | [address] | [place] [address] | | | SERVICES, CORE | VILMA [...] | | | LABORATORY | | | AFGHAN | | | SERVICES, | | | [...] | + + + + + | [facility] | [address] [facility] | [place] [address] | | | NATALEE [place] | VILMA [...] RAPHAEL | [address] | [place], [place] | | | [facility] | [address] | [address] | | | TESTS | | | [...] [facility] | [address] | [place], [place] | | | [facility] | [address] | [address] | | | TESTS | | | [...] DEPT OF | [address] | [place], [place] | | | CARDIOLOGY | [address] | [address] | | + + + + + [...] Note | + + | Service Account, [employer] In Interface - 10/02/2017 2:07 PM [...] [facility] | [address] | [place], [place] | | | [facility] [employer] | [address] | [address] | | | TESTS | | | [...] Note | + + | Service Account, Scripped [employer] In Interface - 10/02/2017 10:27 AM [...] R[facility]EL[facility] | [address] | [place], [place] | | | [facility] | [address] | [address] | | | TESTS | | | [...] [facility] | [address] | [place] [address] | | | NATALEE [place] | VILMA [...] | + + + + + | [facility] [employer] | [address] | [place] [address] | | | SERVICES, CORE | VILMA [...] | | | LABORATORY | | | AFGHAN | | | SERVICES, | | | [...] | + + + + + | [facility] | [address] | [place] [address] | | | SERVICES, CORE | [...] [facility] | [address] | [place], [place] | | | [facility] | [address] | [address] | | | TESTS | | | [...] [facility] | [address] | [place], [place] | | | [facility] | [address] | [address] | | | TESTS | | | [...] Dictation initiated: Edelmira Dumont | | MD Isas 10/01/2017 2:08 PM | | | |In [...] [facility] | [address] | [place], [place] | | | [facility] | [address] | [address] | | | TESTS | | | [...] Note | + + | Service Account, [employer] In Interface - 10/01/2017 11:34 AM PDT [...] [facility] | [address] | [place], [place] | | | [facility] [employer] | [facility] | [address] | | | TESTS | | | [...] [facility] | [address] | [place] [address] | | | NATALEE [place] | VILMA [...] | + + + + + | [facility] | [address] [facility] | [place] [address] | | | SERVICES, CORE | PARK [...] | | | LABORATORY | | | AFGHAN | | | SERVICES, | | | [...] | + + + + + | [facility] | [address] | [place] [address] | | | SERVICES, CORE | PARK [...] [facility] | [address] | [place], [place] | | | [facility] [employer] | [facility] | [address] | | | TESTS | | | [...] RAP[facility]ELAM | [address] | [place], [place] | | | [facility] | [address] | [address] | | | TESTS | | | [...] DEPT OF | [address] | [place], [place] | | | CARDIOLOGY | [address] | [address] | | + + + + + [...] [facility] | [address] | [place], [place] | | | [facility] [employer] | [address] | [address] | | | TESTS | | | [...] [facility] | [address] | [place], [place] | | | [facility] | [address] | [address] | | | TESTS | | | [...] [facility] | [address] | [place] [address] | | | SERVICES, CORE | PARK [...] [facility] | [address] | [place] [address] | | | SERVICES, CORE | PARK [...] | | | LABORATORY | | | AFGHAN | | | SERVICES, | | | [...] + + | Performing | Address | City/State/[facility] | Phone Number | | Organization | | | | + + + + + | [facility] | [address] | [place] [address] | | | NATALEE [place] | VILMA [...] [facility] | [address] | [place], [place] | | | [facility] [employer] | [address] | [address] | | | TESTS | | | [...] (H) | 70 - 99 mg/dL | [facility] - | | | GLUCOSE, | [...] [facility] | [address] | [place], [place] | | | [facility] | [address] | [address] | | | TESTS | | | [...] [facility] | [address] | [place], [place] | | | [facility] | [address] | [address] | | | TESTS | | | [...] DEPT OF | [address] | [place], [place] | | | CARDIOLOGY | [address] | [address] | | + + + + + [...] [facility] | [address] | [place], [place] | | | [facility] | [address] | [address] | | | TESTS | | | [...] | + + + + + | [facility] | [address] | [place] [address] | | | SERVICES, CORE | PARK [...] | | | LABORATORY | | | AFGHAN | | | SERVICES, | | | [...] [facility] | [address] | [place] [address] | | | SERVICES, CORE | PARK [...] | + + + + + | [facility] | [address] | [place] [address] | | | SERVICES, NATALEE | PARK [...] [facility] | [address] | [place], [place] | | | [facility] | [address] | [address] | | | TESTS | | | [...] - [facility] | [address] | [place], [place] | | | [facility] | [address] | [address] | | | TESTS | | | [...] [facility] | [address] | [place], [place] | | | [facility] GE[facility] | [address] | [address] | | | TESTS | | | [...] DEPT OF | [address] | [place] | | | CARDIOLOGY | [facility] | [address] | | + + + + + CAPILLARY BLOOD GLUCOSE (NO CHG), POC (09/28/2017 6:47 AM PDT) + +---------+ + + + | Component | Value | Ref Range | Performed | Pathologist | | | | | At | Signature | + +---------+ + + + | BLOOD | 147 (H) | 70 - 99 mg/dL | [facility] - | | | GLUCOSE, | [...] [facility] | [address] | [place], [place] | | | [facility] | [address] | [address] | | | TESTS | | | [...] | + + + + + | [facility] | [address] | [place] [address] | | | NATALEE [place] | PARK [...] | + + + + + | [facility] | [address] | [place] [address] | | | ELIN, NATALEE | PARK [...] | | | LABORATORY | | | AF[facility]AN | | | SERVICES, | | | [...] | + + + + + | [facility] | [address] | [place] [address] | | | SERVICES, CORE | V[place]MA [...] P[facility]ET[facility] | [address] | [place], [place] | | | [facility] [employer] | [facility] | [address] | | | TESTS | | | [...] | [address] | [place] | | | [facility] | [address] | [address] | | | TESTS | | | [...] [facility] | [address] | [place], [place] | | | [facility] GE[facility] | [address] | [address] | | | TESTS | | | [...] - [facility] | [address] | [place], [place] | | | [facility] | [address] | [address] | | | TESTS | | | [...] | + + + + + | [employer] | [address] | [place] [address] | | | SERVICES, CORE | PARK [...] [facility] | [address] | [place] [address] | | | SERVICES, [facility] | [address] | [...] | | | LABORATORY | | | AFGHAN | | | SERVICES, | | | [...] | + + + + + | [facility] | [address] | [place] [address] | | | [facility] | [address] | [...] (H) | 70 - 99 mg/dL | [facility] - | | | GLUCOSE, | [...] [facility] | [address] [address] | [place], [place] | | | GL[facility]IA GENAO OF CARE | [facility] | [address] | | | TESTS | | | [...] PIYUSH | [address] | [place], [place] | | | GLORIA GENAO OF GM | [address] | [address] | | | TESTS | | | [...] DEPT OF | [address] | [place], [place] | | | CARDIOLOGY | [address] | [address] | | + + + + + [...] PICKETT | [address] | [place], [place] | | | GLORIA GENAO OF GM | [address] | [address] | | | TESTS | | | [...] MARQUAM | [address] | [place], [place] | | | GLORIA GENAO OF CARE | [address] | [address] | | | TESTS | | | [...] PIYUSH | [address] | [place], [place] | | | [place] [facility]ARE | [address] | [address] | | | TESTS | | | [...] | + + + + + | [facility] | [address] | [place] [address] | | | SERVICES, NATALEE | VILMA [...] | + + + + + | [facility] | [address] | [place] [address] | | | SERVICES, CORE | VILMA [...] | | | LABORATORY | | | AFGHAN | | | SERVICES, | | | [...] | + + + + + | [facility] | [address] | [place] [address] | | | SERVICES, CORE | VILMA [...] (H) | 70 - 99 mg/dL | [facility] - | | | GLUCOSE, | [...] PICKETT | [address] | [place], [place] | | | [place] [facility] | [address] | [address] | | | TESTS | | | [...] presented. | | | |Final signature: Daniel Amrijo MD 09/25/2017 12:31 PM | |Preliminary: Dae [...] | + + + + + | [facility] | [address] [facility] | [place] [address] | | | SERVICES, CORE | PARK [...] [facility] | [address] | [place] [address] | | | SERVICES, CORE | PARK [...] | | | LABORATORY | | | AFGHAN | | | SERVICES, | | | [...] [facility] | [address] | [place] [address] | | | SERVICES, CORE | VILMA [...] DEPT OF | [address] | [place], [place] | | | CARDIOLOGY | [address] | [address] | | + + + + + [...] Note | + + | Service Account, Scripped Res In Interface - 09/24/2017 4:09 PM [...] | + + + + + | [facility] | [address] | [place] [address] | | | SERVICES, CORE | VILMA [...] | | | LABORATORY | | | AFGHAN | | | SERVICES, | | | [...] [facility] | [address] | [place] [address] | | | SERVICES, CORE | PARK [...] | + + + + + | [facility] | [address] | [place] [address] | | | NATALEE [place] | VILMA [...] | + + + + + | [facility] | [address] | [place] [address] | | | SERVICES, CORE | PARK [...] [facility] | [address] | [place] [address] | | | ELIN, NATALEE | VILMA [...] | | | LABORATORY | | | AFGHAN | | | SERVICES, | | | [...] | + + + + + | [facility] [employer] | [address] [facility] | [place] [address] | | | SERVICES, CORE | VILMA [...] MARQUAM | [address] | [place], [place] | | | [place] [facility] | [address] | [address] | | | TESTS | | | [...] PICKETT | [address] | [place], [place] | | | GLORIA GENAO OF [facility] | [address] | [address] | | | TESTS | | | [...] SELENA MC[facility] | [address] | [place] [address] | | | NATALEE [place] | PARK [...] + + | [facility] DEPT OF | [address] | [place], [place] | | | CARDIOLOGY | [address] | [address] | | + + + + + [...] [facility] | [address] | [place] [address] | | | SERVICES, CORE | VILMA [...] [facility] | [address] | [place] [address] | | | SERVICES, CORE | PARK [...] | | | LABORATORY | | | AFGHAN | | | SERVICES, | | | [...] | + + + + + | [facility] | [address] | [place] [address] | | | NATALEE [place] | PARK [...] PIYUSH | [address] | [place], [place] | | | [facility] | [address] | [address] | | | TESTS | | | [...] [facility] | [address] | [place] [address] | | | NATALEE [place] | VILMA [...] + + | [facility] | [address] [facility] | [place] [address] | | | SERVICES, NATALEE | VILMA [...] | | | LABORATORY | | | AFGHAN | | | SERVICES, | | | [...] | + + + + + | [facility] | [address] | [place] [address] | | | SERVICES, CORE | VILMA [...] Note | + + | Service Account, [employer] In Interface - 09/20/2017 7:50 PM PDT [...] Note | + + | Service Account, Scripped Res In Interface - 09/20/2017 6:26 PM [...] Note | + + | Service Account, Scripped Res In Interface - 09/20/2017 5:17 PM [...] OF | [address] | [place], [place] | | | CARDIOLOGY | [facility] | [address] | | + + + + + [...] | + + + + + | [facility] | [address] | [place] [address] | | | SERVICES, CORE | VILMA [...] [facility] | [address] | [place] [address] | | | SERVICES, CORE | PARK [...] | | | LABORATORY | | | AFGHAN | | | SERVICES, | | | [...] the MDRD equation recommended by the | [facility] | | National Kidney Disease Education [...] | + + + + + | [facility] | [address] | [place] [address] | | | SERVICES, CORE | PARK [...] [facility] | [address] | [place] [address] | | | SERVICES, CORE | PARK [...] [facility] | [address] | [place] [address] | | | SERVICES, CORE | PARK [...] | | | LABORATORY | | | AFGHAN | | | SERVICES, | | | [...] the MDRD equation recommended by the | [facility] | | National Kidney Disease Education [...] | + + + + + | [facility] | [address] | [place] [address] | | | SERVICES, CORE | PARK [...] [facility] | [address] | [place] [address] | | | SERVICES, CORE | PARK [...] [facility] | [address] | [place] [address] | | | SERVICES, CORE | PARK [...] | | | LABORATORY | | | AFGHAN | | | SERVICES, | | | [...] the MDRD equation recommended by the | [facility] | | National Kidney Disease Education [...] | + + + + + | [facility] | [address] [facility] | [place] [address] | | | NATALEE [place] | VILMA [...] Note | + + | Service Account, Scripped Res In Interface - 09/17/2017 11:53 AM [...] | + + + + + | [facility] | [address] | [place] [address] | | | NATALEE [place] | VILMA [...] | + + + + + | [facility] | [address] | [place] [address] | | | SERVICES, CORE | VILMA [...] | | | LABORATORY | | | AFGHAN | | | SERVICES, | | | [...] [facility] | [address] | [place] [address] | | | SERVICES, CORE | PARK [...] | + + + + + | [facility] | [address] [facility] | [place] [address] | | | NATALEE [place] | VILMA [...] | + + + + + | [facility] | [address] | [place] [address] | | | SERVICES, CORE | VILMA [...] | | | LABORATORY | | | AFGHAN | | | SERVICES, | | | [...] | + + + + + | [facility] | [address] | [place] [address] | | | SERVICES, CORE | VILMA [...] Indications:TPN Procedure | | | location: Unit:[facility] Room: #12 Providers: Attending [...] | pause verifies correct patient, procedure, equipment, behaviour support teacher | | | and site/side marked [...] | area Basilic vein. Catheter lot number: [id number] with a length of 55 | | [...] | + + + + + | [facility] | [address] | [place] [address] | | | SERVICES, CORE | VILMA [...] | + + + + + | [facility] | [address] [facility] | [place] [address] | | | SERVICES, [facility] | [address] | [...] | | | LABORATORY | | | AFGHAN | | | SERVICES, | | | [...] the MDRD equation recommended by the | [facility] | | National Kidney Disease Education [...] | + + + + + | [facility] | [address] | [place] [address] | | | SERVICES, [facility] | [address] | | | + + + + + X-RAY SPINE CERVICAL 2 VIEWS (09/14/2017 4:51 PM PDT) + + | Specimen | + + | | + + + + + | Narrative | Performed At | + + + | EXAM: SPINE CERVICAL 2 VIEWS HISTORY: Cervical spine fractures | [facility] | | COMPARISON: 08/31/17 FINDINGS: The [...] [facility] | [address] | [place] [address] | | | NATALEE [place] | PARK [...] | + + + + + | [facility] | [address] [facility] | [place] [address] | | | SERVICES, NATALEE | VIL[address] [...] | | | LABORATORY | | | AFGHAN | | | SERVICES, | | | [...] | + + + + + | [facility] | [address] | [place] [address] | | | SERVICES, CORE | PARK [...] [facility] | [address] | [place] [address] | | | NATALEE [place] | VILMA [...] + + | [facility] | [address] [facility] | [place] [address] | | | SERVICES, CORE | VIL[address] [...] | | | LABORATORY | | | AFGHAN | | | SERVICES, | | | [...] | + + + + + | [facility] | [address] | [place] [address] | | | SERVICES, CORE [...] | + + + + + | [facility] | [address] | [place] [address] | | | SERVICES, CORE | PARK [...] [facility] | [address] | [place] [address] | | | SERVICES, CORE | PARK [...] | | | LABORATORY | | | AFGHAN | | | SERVICES, | | | [...] | + + + + + | [facility] | [address] | [place] [address] | | | NATALEE [place] | VILMA [...] [facility] | [address] | [place] [address] | | | NATALEE [place] | VILMA [...] | + + + + + | [facility] | [address] | [place] [address] | | | SERVICESNATALEE | [address] [...] | | | LABORATORY | | | AFGHAN | | | SERVICES, | | | [...] | + + + + + | [facility] [employer] | [address] | [place] [address] | | | SERVICES, CORE | VILMA [...] | + + + + + | [facility] | [address] | [place] [address] | | | SERVICES, CORE | VILMA [...] Note | + + | Service Account, [employer] In Interface - 09/10/2017 2:08 PM PDT [...] Note | + + | Service Account, [employer] In Interface - 09/10/2017 2:31 PM PDT [...] Note | + + | Service Account, Scripped Res In Interface - 09/10/2017 9:25 AM [...] | [facility] | [address] [facility] | [place] [address] | | | SERVICES, CORE | PARK [...] [facility] | [address] | [place] [address] | | | SERVICES, CORE | PARK [...] | + + + + + | [facility] | [address] | [place] [address] | | | SERVICES, CORE | VILMA [...] [facility] | [address] | [place] [address] | | | SERVICES, CORE | PARK [...] | | | LABORATORY | | | AFGHAN | | | SERVICES, | | | [...] | + + + + + | [facility] | [address] | [place] [address] | | | NATALEE [place] | VILMA [...] DEPT OF | [address] | [place], [place] | | | CARDIOLOGY | [address] | [address] | | + + + + + [...] Note | + + | Service Account, Scripped Res In Interface - 09/10/2017 11:11 AM [...] [facility] | [address] | [place], [place] | | | [facility] | [address] | [address] | | | TESTS | | | [...] [facility] | [address] | [place] [address] | | | NATALEE [place] | PARK [...] [facility] | [address] | [place] [address] | | | SERVICES, CORE | PARK [...] | | | LABORATORY | | | AFGHAN | | | SERVICES, | | | [...] | + + + + + | [facility] | [address] [facility] | [place] [address] | | | NATALEE [place] | [...] [facility] | [address] | [place] [address] | | | SERVICES, CORE | PARK [...] | | | LABORATORY | | | AFGHAN | | | SERVICES, | | | [...] [facility] | [address] | [place] [address] | | | SERVICES, CORE | PARK [...] | + + + + + | [facility] | [address] [facility] | [place] [address] | | | SERVICES, CORE | PARK [...] [facility] | [address] | [place] [address] | | | SERVICES, NATALEE | VILMA [...] GEET OF | [address] | [place], [place] | | | CARDIOLOGY | [address] | [address] | | + + + + + [...] Note | + + | Service Account, [employer] Res In Interface - 09/07/2017 10:46 AM [...] | + + + + + | [facility] | [address] | [place] [address] | | | NATALEE [place] | PARK [...] | | | LABORATORY | | | AFGHAN | | | SERVICES, | | | [...] | + + + + + | [facility] | [address] | [place] [address] | | | SERVICES, CORE | VILMA [...] [facility] | [address] | [place] [address] | | | SERVICES, CORE | VILMA [...] DEPT OF | [address] | [place], [place] | | | CARDIOLOGY | [facility] | [address] | | + + + + + [...] | | | attempt. Midline lot number [id number]; there was positive blood | | | [...] | | | LABORATORY | | | AFGHAN | | | SERVICES, | | | [...] [facility] | [address] | [place] [address] | | | SERVICES, CORE | PARK [...] | + + + + + | [facility] | [address] | [place] [address] | | | SERVICES, [facility] | [address] | [...] | + + + + + | [facility] | [address] | [place] [address] | | | SERVICES, CORE | VILMA [...] | + + + + + | [facility] | [address] | [place] [address] | | | SERVICES, CORE | VILMA [...] | | | LABORATORY | | | AFGHAN | | | SERVICES, | | | [...] [facility] | [address] | [place] [address] | | | SERVICES, CORE | PARK [...] | | | LABORATORY | | | AFGHAN | | | SERVICES, | | | [...] | + + + + + | [facility] | [address] | [place] [address] | | | SERVICES, [facility] | [address] | | | + + + + + PROCEDURE NOTE (09/04/2017 2:04 PM PDT) + + + | Narrative | Performed At | + + + | BC Betancourt 09/04/2017 2:05 PM Procedure Note: | [...] tomorrow morning. CB Henson Pager / ID: [phone] | | + + + CULTURE, SPUTUM [...] seen | AIRPORT - | | | [facility] | + + + + + + + + | Performing | Address | City/State/Zipcode | Phone Number | | Organization | | | | + + + + + | [employer] [facility] | [address] | [place] [address] | | | [place] | | | [...] | + + + + + | [facility] | [address] | [place] [address] | | | ELIN, NATALEE | VILMA [...] | [facility] | | | GRAVITY | [place] performed by | | LABORATORY | | [...] [facility] | [address] | [place] [address] | | | SERVICES, CORE | VILMA [...] | + + + + + | [facility] | [address] | [place] [address] | | | SERVICES, CORE | PARK [...] [facility] | [address] | [place] [address] | | | SERVICES, CORE | PARK [...] GEET OF | [address] | [place], [place] | | | CARDIOLOGY | [address] | [address] | | + + + + + [...] | + + + + + | [employer] | [address] | [place] [address] | | | SERVICES, CORE | VILMA [...] [facility] | [address] | [place] [address] | | | SERVICES, CORE | PARK [...] | | | LABORATORY | | | AFGHAN | | | SERVICES, | | | [...] the MDRD equation recommended by the | [facility] | | National Kidney Disease Education [...] | + + + + + | [facility] | [address] | [place] [address] | | | SERVICES, CORE | PARK [...] [facility] | [address] | [place] [address] | | | SERVICES, NATALEE | VILMA [...] [facility] | [address] | [place], [place] | | | [facility] | [address] | [address] | | | TESTS | | | [...] P[facility]T | [address] | [place], [place] | | | [facility] | [address] | [address] | | | TESTS | | | [...] [facility] | [address] | [place], [place] | | | GLORIA GENAO OF CARE | [address] | [address] | | | TESTS | | | [...] - [facility] | [address] | [place], [place] | | | [facility] | [address] | [address] | | | TESTS | | | [...] | | + +---------+ + + | [facility] | | | | | [facility] | | | | + [...] detected | AIRPORT - | | | [place] | + + + + + + + + | Performing | Address | City/State/Zipcode | Phone Number | | Organization | | | | + + + + + | [facility] - | [address] | [place] [address] | | | [facility] | | | | + + + [...] | + + + + + | [facility] | [address] | [place] [address] | | | SERVICES, CORE | VILMA [...] Note | + + | Service Account, [employer] In Interface - 09/03/2017 9:54 AM PDT [...] detected | AIRPORT - | | | [facility] | + + + + + + + + | Performing | Address | City/State/Zipcode | Phone Number | | Organization | | | | + + + + + | [facility] | [address] | [place] [address] | | | [place] | | | | + + + [...] [facility] | [address] | [place] [address] | | | ELIN, CORE | VILMA [...] | + + + + + | [facility] | [address] | [place] [address] | | | SERVICES, NATALEE | [address] [...] | | | LABORATORY | | | AFGHAN | | | SERVICES, | | | [...] | [facility] | [address] [facility] | [place] [address] | | | SERVICES, CORE | VILMA [...] | + + + + + | [facility] | [address] [facility] | [place] [address] | | | SERVICES, [facility] | [address] | | | + + + + + OPERATION RECORD (09/02/2017 6:53 PM PDT) + + | Procedure Note | + + | Fidelina Shields MD - 09/02/2017 6:53 PM PDT Date of Service: 09/02/2017 | | Attending Surgeon: Fidelina Shields MD Electronic Prepress Operator(s): | | Ajay Butts MD, resident. Preoperative [...] 09/02/2017 18:15:29DT: 09/02/2017 18:53:52Job #: | | [id number] to federal Medicare and Medicaid regulations I was present for | | the entire procedure.Fidelina Shields MDAssistant ProfessorDepartment of SurgeryOffice: | | [phone]: [id number] has been electronically signed by Fidelina Shields MD, | | 09/03/2017 at 9:11 AM. | | | | | |Fidelina Shields MD | |Dietitian Assistant | |Department of Surgery | |Office: [phone] | |Pager: [phone] | | | |This has been electronically [...] | + + + + + | [facility] | [address] | [place] [address] | | | SERVICES, CORE | PARK [...] | + + + + + | [facility] | [address] | [place] [address] | | | SERVICES, CORE | PARK [...] + | [facility] - | [address] | [place] [address] | | | [facility] | | | | + + + [...] [facility] | [address] | [place] [address] | | | SERVICES, NATALEE | VILMA [...] | | | LABORATORY | | | AFGHAN | | | SERVICES, | | | [...] | + + + + + | [facility] [employer] | [address] | [place] [address] | | | SERVICES, CORE | VILMA [...] Note | + + | Service Account, [employer] In Interface - 09/02/2017 4:25 PM PDT [...] Bedrest Initial surgical | | | contact: [facility] Vicente Butts, R4 Surgery [phone] Pursuant | | | to federal Medicare and Medicaid regulations I was present for the | | | entire procedure. Fidelina Shields MD Dietitian Assistant | | | Department of Surgery Office: [phone] Pager: [phone] This has | | | been electronically [...] [facility] | [address] | [place] [address] | | | SERVICES, CORE | PARK [...] | + + + + + | [facility] | [address] | [place] [address] | | | SERVICES, [facility] | [address] | | | + + + + + OPERATION RECORD (09/02/2017 6:51 AM PDT) + ---+ | Procedure Note | + ---+ | Fidelina Shields MD - 09/02/2017 6:51 AM PDT Date of Service: 09/01/2017 | | Attending Surgeon: Fidelina Shields MD Electronic Prepress Operator(s): Haim Peralta MD. | | Ajay Butts [...] 09/02/2017 06:17:53DT: 09/02/2017 | | 06:51:37Job #: [id number] to federal Medicare and Medicaid regulations I | | was present for the entire procedure.Fidelina Shields MDAssdioni ProfessorDepartment of | | SurgeryOffice: [phone]: [id number] has been electronically signed by Fidelina Whitman | | MD Cornelius, 09/02/2017 at 10:40 AM. | | | | | |Pursuant to federal Medicare and Medicaid regulations I was present for the entire procedur e. | | | | | | | |Fidelina Shields MD | |Dietitian Assistant | |Department of Surgery | |Office: [phone] | |Pager: [phone] | | | |This has been electronically [...] | + + + + + | [facility] | [address] | [place] [address] | | | SERVICES, CORE | VILMA [...] | + + + + + | [facility] | [address] [facility] | [place] [address] | | | SERVICES, CORE | [address]ARK [...] + + + + | PRODUCT | [id number] | | [facility] | | | UNIT [...] + + + + | EXPIRATION | [id number] | | [facility] | | | DATE [...] + + + + | BLOOD | [id number] | | [facility] | | | PRODUCT [...] [facility] | [address] | [place] [address] | | | SERVICES, | [address] [...] | + + + + + | [facility] | [address] | [place] [address] | | | SERVICES, NATALEE | VILMA [...] | | | LABORATORY | | | AFGHAN | | | SERVICES, | | | [...] | + + + + + | [facility] | [address] | [place] [address] | | | SERVICES, CORE | VILMA [...] | + + + + + | [facility] | [address] | [place] [address] | | | ELIN, NATALEE | VILMA [...] | | | | INFORMATION: | | [place] | | | | [employer] | [...] (http://www.cdc.gov/mmwr | | | | | | [email or web address] | | | | | | [email or web address]), [...] [facility] - | | | | by [employer], | | AIRPORT - | | | | | | [place] | | | | [address] | | | | | | [facility],[place] | | | | | | [address] | | | | | | | | | | | | [email or web address] | | | | | | [...] + | [facility] - | [address] | [place] [address] | | | [place] | | | [...] | + + + + + | [facility] | [address] | [place] [address] | | | SERVICES, CORE | PARK [...] | + + + + + | [facility] | [address] | [place] [address] | | | SERVICES, CORE | VILMA [...] 1 VIEW HISTORY: Hypoxemia COMPARISON: 09/01/17 | [facility] | | FINDINGS: The endotracheal tube, [...] | | + +---------+ + + | [facility] | | | | | [...] | + + + + + | [facility] | [address] | [place] [address] | | | SERVICES, CORE | PARK [...] | + + + + + | [facility] | [address] [facility] [facility] | [place] [address] | | | SERVICES, CORE | PARK [...] + + + + | PRODUCT | [id number] | | [facility] | | | UNIT [...] + + + + | EXPIRATION | [id number] | | [facility] | | | DATE [...] + + + + | BLOOD | [id number] | | [facility] | | | PRODUCT [...] | + + + + + | [facility] | [address] | [place] [address] | | | SERVICES, | [address] [...] | + + + + + | [facility] | [address] | [place] [address] | | | SERVICES, CORE | PARK [...] [facility] | [address] | [place] [address] | | | NATALEE WORTH[place] | VIL[address] [...] | + + + + + | [facility] | [address] | [place] [address] | | | SERVICES, NATALEE | VILMA [...] | | | LABORATORY | | | AFGHAN | | | SERVICES, | | | [...] + + | Performing | Address | City/State/[facility] Cent[facility] | Phone Number | | Organization | | | | + + + + + | [facility] | [address] | [place] [address] | | | ELIN, NATALEE | PARK [...] | + + + + + | [facility] | [address] [facility] | [place] [address] | | | SERVICES, [facility] | [address] | [...] | Previous result was 1.19 | | [facility], | | | | mmol/L on [...] | + + + + + | [facility] | [address] | [place] [address] | | | NATALEE WORTHINGTON | [address] [...] micropuncture access set was exchanged for a Sentri wire. Under | | | fluoroscopic guidance, a 5 Fr flush catheter was used to evaluate the | | | distal abdominal aorta and pelvic vasculature. A wire and catheter | | | were then used to select the left common and internal iliac arteries | | | from the right WRAP YARN SORTER approach. DSA was performed from the left [...] | | iliac arteries from the right WRAP YARN SORTER approach. DSA was performed from the left [...] and internal iliac arteries from the right WRAP YARN SORTER approach. DSA was performed from the left [...] [facility] | [address] | [place], [place] | | | [place], POINT OF CARE | [address] | [address] | | | TESTS | | | | + + + + + EXPLORATORY LAPAROTOMY (09/01/2017 12:31 PM PDT) + + + | Narrative | Performed At | + + + | Fidelina Shields MD 09/01/2017 12:42 PM BRIEF OPERATIVE NOTE: | | | Date: 09/01/2017 Author: Fidelina Shields MD | | | Attending Physician: Fidelina Shields MD Electronic Prepress Operator(s): Haim Peralta | | | , Vicente Butts MD, Gl[facility] MS3 Prior to the | | [...] case. | | | Fidelina Shields MD Dietitian Assistant Division of Trauma, | | | Critical Care and Acute Care Surgery Office: [phone] Pager: | | | [phone] | | + + + ABG-FULL ABL, [...] [facility] | [address] | [place], [place] | | | [place] POINT OF CARE | [address] | [address] | | | TESTS | | | [...] [facility] | [address] | [place] [address] | | | ELIN, NATALEE | VIL[address] [...] [facility] | [address] | [place], [place] | | | [facility] | [address] | [address] | | | TESTS | | | [...] + + + + | PRODUCT | [id number] | | [facility] | | | UNIT [...] + + + + | EXPIRATION | [id number] | | [facility] | | | DATE [...] + + + + | BLOOD | [id number] | | [facility] | | | PRODUCT [...] [facility] | [address] | [place] [address] | | | SERVICES, | [address] [...] + + + + | PRODUCT | [id number] | | [facility] | | | UNIT [...] + + + + | EXPIRATION | [id number] | | [facility] | | | DATE [...] + + + + | BLOOD | [id number] | | [facility] | | | PRODUCT [...] [facility] | [address] | [place] [address] | | | SERVICES, | [address] [...] + + + + | PRODUCT | [id number] | | [facility] | | | UNIT [...] + + + + | EXPIRATION | [id number] | | [facility] | | | DATE [...] + + + + | BLOOD | [id number] | | [facility] | | | PRODUCT [...] | + + + + + | [facility] | [address] | [place] [address] | | | SERVICES, | [address] [...] + + + + | PRODUCT | [id number] | | [facility] | | | UNIT [...] + + + + | EXPIRATION | [id number] | | [facility] | | | DATE [...] + + + + | BLOOD | [id number] | | [facility] | | | PRODUCT [...] | + + + + + | [facility] | [address] | [place] [address] | | | SERVICES, | [address] | | | | TRANSFUSION MEDICINE [...] + + + + | PRODUCT | [id number] | | [facility] | | | UNIT [...] + + + + | EXPIRATION | [id number] | | [facility] | | | DATE [...] + + + + | BLOOD | [id number] | | [facility] | | | PRODUCT [...] | + + + + + | [facility] | [address] | [place] [address] | | | SERVICES, | [address] [...] + + + + | PRODUCT | [id number] | | [facility] | | | UNIT [...] + + + + | EXPIRATION | [id number] | | [facility] | | | DATE [...] + + + + | BLOOD | [id number] | | [facility] | | | PRODUCT [...] [facility] | [address] | [place] [address] | | | SERVICES, | [address] [...] + + + + | PRODUCT | [id number] | | [facility] | | | UNIT [...] + + + + | EXPIRATION | [id number] | | [facility] | | | DATE [...] + + + + | BLOOD | [id number] | | [facility] | | | PRODUCT [...] [facility] | [address] | [place] [address] | | | SERVICES, | [address] [...] + + + + | PRODUCT | [id number] | | [facility] | | | UNIT [...] + + + + | EXPIRATION | [id number] | | [facility] | | | DATE [...] + + + + | BLOOD | [id number] | | [facility] | | | PRODUCT [...] [facility] | [address] | [place] [address] | | | SERVICES, | [address] [...] + + + + | PRODUCT | [id number] | | [facility] | | | UNIT [...] + + + + | EXPIRATION | [id number] | | [facility] | | | DATE [...] + + + + | BLOOD | [id number] | | [facility] | | | PRODUCT [...] [facility] | [address] | [place] [address] | | | SERVICES, | [address] [...] + + + + | PRODUCT | [id number] | | [facility] | | | UNIT [...] + + + + | EXPIRATION | [id number] | | [facility] | | | DATE [...] + + + + | BLOOD | [id number] | | [facility] | | | PRODUCT [...] [facility] | [address] | [place] [address] | | | SERVICES, | [address] [...] + + + + | PRODUCT | [id number] | | [facility] | | | UNIT [...] + + + + | EXPIRATION | [id number] | | [facility] | | | DATE [...] + + + + | BLOOD | [id number] | | [facility] | | | PRODUCT [...] | + + + + + | [facility] | [address] | [place] [address] | | | SERVICES, | [address] [...] + + + + | PRODUCT | [id number] | | [facility] | | | UNIT [...] + + + + | EXPIRATION | [id number] | | [facility] | | | DATE [...] + + + + | BLOOD | [id number] | | [facility] | | | PRODUCT [...] | + + + + + | [facility] | [address] | [place] [address] | | | SERVICES, | [address] [...] + + + + | PRODUCT | [id number] | | [facility] | | | UNIT [...] + + + + | EXPIRATION | [id number] | | [facility] | | | DATE [...] + + + + | BLOOD | [id number] | | [facility] | | | PRODUCT [...] | + + + + + | [facility] | [address] | [place] [address] | | | SERVICES, | [address] [...] + + + + | PRODUCT | [id number] | | [facility] | | | UNIT [...] + + + + | EXPIRATION | [id number] | | [facility] | | | DATE [...] + + + + | BLOOD | [id number] | | [facility] | | | PRODUCT [...] [facility] | [address] | [place] [address] | | | SERVICES, | [address] [...] + + + + | PRODUCT | [id number] | | [facility] | | | UNIT [...] + + + + | EXPIRATION | [id number] | | [facility] | | | DATE [...] + + + + | BLOOD | [id number] | | [facility] | | | PRODUCT [...] [facility] | [address] | [place] [address] | | | SERVICES, | [address] [...] + + + + | PRODUCT | [id number] | | [facility] | | | UNIT [...] + + + + | EXPIRATION | [id number] | | [facility] | | | DATE [...] + + + + | BLOOD | [id number] | | [facility] | | | PRODUCT [...] [facility] | [address] | [place] [address] | | | SERVICES, | [address] [...] + + + + | PRODUCT | [id number] | | [facility] | | | UNIT [...] + + + + | EXPIRATION | [id number] | | [facility] | | | DATE [...] + + + + | BLOOD | [id number] | | [facility] | | | PRODUCT [...] [facility] | [address] | [place] [address] | | | SERVICES, | [address] [...] + + + + | PRODUCT | [id number] | | [facility] | | | UNIT [...] + + + + | EXPIRATION | [id number] | | [facility] | | | DATE [...] + + + + | BLOOD | [id number] | | [facility] | | | PRODUCT [...] | [facility] | [address] [facility] | [place] [address] | | | SERVICES, | [address] [...] + + + + | PRODUCT | [id number] | | [facility] | | | UNIT [...] + + + + | EXPIRATION | [id number] | | [facility] | | | DATE [...] + + + + | BLOOD | [id number] | | [facility] | | | PRODUCT [...] [facility] | [address] | [place] [address] | | | SERVICES, | [address] [...] + + + + | PRODUCT | [id number] | | [facility] | | | UNIT [...] + + + + | EXPIRATION | [id number] | | [facility] | | | DATE [...] + + + + | BLOOD | [id number] | | [facility] | | | PRODUCT [...] [facility] | [address] | [place] [address] | | | SERVICES, | [address] [...] + + + + | PRODUCT | [id number] | | [facility] | | | UNIT [...] + + + + | EXPIRATION | [id number] | | [facility] | | | DATE [...] + + + + | BLOOD | [id number] | | [facility] | | | PRODUCT [...] [facility] | [address] | [place] [address] | | | SERVICES, | [address] [...] + + + + | PRODUCT | [id number] | | [facility] | | | UNIT [...] + + + + | EXPIRATION | [id number] | | [facility] | | | DATE [...] + + + + | BLOOD | [id number] | | [facility] | | | PRODUCT [...] | + + + + + | [facility] | [address] | [place] [address] | | | SERVICES, | [address] [...] + + + + | PRODUCT | [id number] | | [facility] | | | UNIT [...] + + + + | EXPIRATION | [id number] | | [facility] | | | DATE [...] + + + + | BLOOD | [id number] | | [facility] | | | PRODUCT [...] | + + + + + | [facility] | [address] | [place] [address] | | | SERVICES, | [address] [...] + + + + | PRODUCT | [id number] | | [facility] | | | UNIT [...] + + + + | EXPIRATION | [id number] | | [facility] | | | DATE [...] + + + + | BLOOD | [id number] | | [facility] | | | PRODUCT [...] | + + + + + | [facility] | [address] | [place] [address] | | | SERVICES, | [address] [...] + + + + | PRODUCT | [id number] | | [facility] | | | UNIT [...] + + + + | EXPIRATION | [id number] | | [facility] | | | DATE [...] + + + + | BLOOD | [id number] | | [facility] | | | PRODUCT [...] | + + + + + | [facility] | [address] | [place] [address] | | | SERVICES, | [address] [...] + + + + | PRODUCT | [id number] | | [facility] | | | UNIT [...] + + + + | EXPIRATION | [id number] | | [facility] | | | DATE [...] + + + + | BLOOD | [id number] | | [facility] | | | PRODUCT [...] [facility] | [address] | [place] [address] | | | SERVICES, | [address] [...] | + + + + + | [facility] | [address] | [place] [address] | | | SERVICES, NATALEE | [address] [...] | | | LABORATORY | | | AFGHAN | | | SERVICES, | | | [...] [facility] | [address] | [place] [address] | | | SERVICES, CORE | [address] [...] | + + + + + | [facility] | [address] | [place] [address] | | | SERVICES, CORE | [address] [...] 27.1 | 21 - 28 mmol/L | [facility] - | | | ARTERIAL, | [...] [facility] | | | | | | [place] | | | | | | [...] [facility] | [address] | [place], [place] | | | [place] POINT OF CARE | [address] | [address] | | | TESTS | | | [...] Note | + + | Service Account, [employer] In Interface - 09/01/2017 1:40 PM PDT [...] + + + + | PRODUCT | [id number] | | [facility] | | | UNIT [...] + + + + | EXPIRATION | [id number] | | [facility] | | | DATE [...] + + + + | BLOOD | [id number] | | [facility] | | | PRODUCT [...] | + + + + + | [facility] | [address] | [place] [address] | | | SERVICES, | [address] [...] + + + + | PRODUCT | [id number] | | [facility] | | | UNIT [...] + + + + | EXPIRATION | [id number] | | [facility] | | | DATE [...] + + + + | BLOOD | [id number] | | [facility] | | | PRODUCT [...] [facility] | [address] | [place] [address] | | | SERVICES, | [address] [...] + + + + | PRODUCT | [id number] | | [facility] | | | UNIT [...] + + + + | EXPIRATION | [id number] | | [facility] | | | DATE [...] + + + + | BLOOD | [id number] | | [facility] | | | PRODUCT [...] [facility] | [address] | [place] [address] | | | SERVICES, | [address] [...] + + + + | PRODUCT | [id number] | | [facility] | | | UNIT [...] + + + + | EXPIRATION | [id number] | | [facility] | | | DATE [...] + + + + | BLOOD | [id number] | | [facility] | | | PRODUCT [...] [facility] | [address] | [place] [address] | | | SERVICES, | [address] [...] + + + + | PRODUCT | [id number] | | [facility] | | | UNIT [...] + + + + | EXPIRATION | [id number] | | [facility] | | | DATE [...] + + + + | BLOOD | [id number] | | [facility] | | | PRODUCT [...] [facility] | [address] | [place] [address] | | | SERVICES, | [address] [...] + + + + | PRODUCT | [id number] | | [facility] | | | UNIT [...] + + + + | EXPIRATION | [id number] | | [facility] | | | DATE [...] + + + + | BLOOD | [id number] | | [facility] | | | PRODUCT [...] [facility] | [address] | [place] [address] | | | SERVICES, | [address] [...] + + + + | PRODUCT | [id number] | | [facility] | | | UNIT [...] + + + + | EXPIRATION | [id number] | | [facility] | | | DATE [...] + + + + | BLOOD | [id number] | | [facility] | | | PRODUCT [...] [facility] | [address] | [place] [address] | | | SERVICES, | [address] [...] + + + + | PRODUCT | [id number] | | [facility] | | | UNIT [...] + + + + | EXPIRATION | [id number] | | [facility] | | | DATE [...] + + + + | BLOOD | [id number] | | [facility] | | | PRODUCT [...] | + + + + + | [facility] | [address] [facility] | [place] [address] | | | SERVICES, | [address] [...] + + + + | PRODUCT | [id number] | | [facility] | | | UNIT [...] + + + + | EXPIRATION | [id number] | | [facility] | | | DATE [...] + + + + | BLOOD | [id number] | | [facility] | | | PRODUCT [...] | + + + + + | [facility] | [address] | [place] [address] | | | SERVICES, | [address] [...] | + + + + + | [facility] | [address] | [place] [address] | | | SERVICES, CORE | PARK [...] [facility] | [address] | [place] [address] | | | SERVICES, CORE | PARK [...] Discussed with | | | trauma ICU winter intern by Dr. Yang at 4:38 AM. [...] interspinous ligament is injured.Discussed with trauma ICU winter intern | | by Dr. Yang at 4:38 AM.I have personally reviewed the images and, if necessary, | | edited the report. I agree with the report as now presented. | |3. Extensive soft tissue edema extending into the cervical and upper thoracic interspinous space, suggestive of interspinous ligament is injured. | | | |Discussed with trauma ICU winter intern by Dr. Yang at 4:38 AM. [...] | | | LABORATORY | | | AFGHAN | | | SERVICES, | | | [...] [facility] | [address] | [place] [address] | | | SERVICES, CORE | PARK [...] | + + + + + | [facility] | [address] | [place] [address] | | | SERVICES, CORE | PARK [...] [facility] | [address] | [place] [address] | | | SERVICES, CORE | PARK [...] | + + + + + | [facility] | [address] [facility] | [place] [address] | | | [facility] | [address] | | [...] A 32 size Lebanese chest tube was | | | placed [...] | ventricles. Discussed with the trauma ICU winter intern at 12:12 AM by | | [...] ventricles.Discussed with | | the trauma ICU winter intern at 12:[address] Yang.I [...] | | |Discussed with the trauma ICU winter intern at 12:[address] Yang. [...] [facility] | [address] | [place], [place] | | | GL[facility]IA GENA[facility] [employer] | [address] | [address] | | | TESTS | | | [...] [facility] | [address] | [place] [address] | | | SERVICES, CORE | PARK [...] [facility] | [address] | [place] [address] | | | NATALEE [place]TH[place] | [address] [...] | | + +---------+ + + | [facility] | | | | | [...] | | + +---------+ + + | [facility] | | | | | [...] | + + + + + | [facility] | [address] [facility] | [place] [address] | | | SERVICES, CORE | [address] [...] | | approximately 4 cm above the yifna. Enteric tube that extends below | RECOGNITION [...] | | + +---------+ + + | [facility] | | | | | [...] | + + + + + | [facility] | [address] | [place] [address] | | | SERVICES, CORE | [address] [...] | | + +---------+ + + | [facility] | | | | | [...] rib, nondisplaced-Left | | 1st rib fracture, egukzjmqmrxc-Fva-wdziioacd left lateral 8th rib fracture-T12 fracture | [...] Note | + + | Service Account, [employer] In Interface - 08/31/2017 8:10 PM [...] | + + + + + | [facility] | [address] | [place] [address] | | | ELIN, | [address] [...] [facility] | [address] | [place] [address] | | | SERVICES, | [address] [...] [facility] | [address] | [place] [address] | | | SERVICES, | [address] [...] [facility] | [address] | [place], [place] | | | [facility] | [address] | [address] | | | TESTS | | | [...] + + + | [facility] | [address] | [place], [place] | | | [facility] | [address] | [address] | | | TESTS | | | [...] [facility] | [address] | [place], [place] | | | GL[facility]IA GENAO [facility] | [facility] | [address] | | | TESTS | | | [...] - [facility] | [address] | [place], [place] | | | [facility] | [facility] | [address] | | | TESTS | | | [...] + + + + | PRODUCT | [id number] | | [facility] | | | UNIT [...] + + + + | EXPIRATION | [id number] | | [facility] | | | DATE [...] + + + + | BLOOD | [id number] | | [facility] | | | PRODUCT [...] [facility] | [address] | [place] [address] | | | SERVICES, | [address] [...] + + + + | PRODUCT | [id number] | | [facility] | | | UNIT [...] + + + + | EXPIRATION | [id number] | | [facility] | | | DATE [...] + + + + | BLOOD | [id number] | | [facility] | | | PRODUCT [...] [facility] | [address] | [place] [address] | | | SERVICES, | [address] [...] + + + + | PRODUCT | [id number] | | [facility] | | | UNIT [...] + + + + | EXPIRATION | [id number] | | [facility] | | | DATE [...] + + + + | BLOOD | [id number] | | [facility] | | | PRODUCT [...] | + + + + + | [facility] | [address] | [place] [address] | | | SERVICES, | [address] [...] + + + + | PRODUCT | [id number] | | [facility] | | | UNIT [...] + + + + | EXPIRATION | [id number] | | [facility] | | | DATE [...] + + + + | BLOOD | [id number] | | [facility] | | | PRODUCT [...] | + + + + + | [facility] | [address] | [place] [address] | | | SERVICES, | [address] [...] + + + + | PRODUCT | [id number] | | [facility] | | | UNIT [...] + + + + | EXPIRATION | [id number] | | [facility] | | | DATE [...] + + + + | BLOOD | [id number] | | [facility] | | | PRODUCT [...] | + + + + + | [employer] [facility] | [address] | [place] [address] | | | SERVICES, | [address] [...] + + + + | PRODUCT | [id number] | | [facility] | | | UNIT [...] + + + + | EXPIRATION | [id number] | | [facility] | | | DATE [...] + + + + | BLOOD | [id number] | | [facility] | | | PRODUCT [...] | + + + + + | [facility] | [address] | [place] [address] | | | SERVICES, | [address] [...] + + + + | PRODUCT | [id number] | | [facility] | | | UNIT [...] + + + + | EXPIRATION | [id number] | | [facility] | | | DATE [...] + + + + | BLOOD | [id number] | | [facility] | | | PRODUCT [...] | + + + + + | [facility] | [address] | [place] [address] | | | SERVICES, | [address] [...] + + + + | PRODUCT | [id number] | | [facility] | | | UNIT [...] + + + + | EXPIRATION | [id number] | | [facility] | | | DATE [...] + + + + | BLOOD | [id number] | | [facility] | | | PRODUCT [...] [facility] | [address] | [place] [address] | | | SERVICES, | [address] [...] | + + + + + | [facility] | [address] | [place] [address] | | | SERVICES, CORE | [address] [...] | | | LABORATORY | | | [facility] | | | SERVICES, | | | [...] [facility] | [address] | [place] [address] | | | SERVICES, CORE | [address] [...] | + + + + + | [facility] | [address] | [place] [address] | | | [facility] | [address] | [...] [facility] | [address] | [place] [address] | | | SERVICES, CORE | PARK [...] | + + + + + | [employer] | [address] [facility] | [place] [address] | | | SERVICES, CORE | [address] [...] [facility] | [address] | [place] [address] | | | SERVICES, CORE | PARK [...] | | | | | modification) on [facility] 09/19/17 at | | | | [...] | | | | ONCE, 1 dose, Julian 09/01/17 at 0230 | | AM PDT | | | | + +-------+ +---------+---+---+ + +---+ | | | + +---+ | fentaNYL (SUBLIMAZE) injection | | | 1 dose, Starting 08/31/17 at | | | 1656, Until [facility] 09/01/17 at 0456 | | + +---+ [...] | | | | | | Until [facility] 09/05/17 at 0727 | | | [...] | | | | | NEEDED, Starting [facility] 09/19/17 at | | | | [...] | | | | ONCE, 1 dose, [facility] 10/22/17 at 0215 | | AM PDT [...] 3:51 | | | | | dose, [facility] 10/10/17 at 1600 | | PM PDT [...] | | | | ONCE, 1 dose, [facility] 09/03/17 at 0600 | | AM PDT | | | | + +---------+ +-----+---+---+ +---+---+ | | | +---+---+ + +---------+ +-----+---+---+ | magnesium sulfate in water IV | New Bag | 09/05/19 | 2 g | | | | (RTU) 2 g 2 g, intravenous, | | 18 3:39 | | | | | ONCE, 1 dose, [facility] 09/04/17 at 0330 | | AM PDT | | | | + +---------+ +-----+---+---+ +---+---+ | | | +---+---+ + +---------+ +-----+---+---+ | magnesium sulfate in water IV | New Bag | 09/06/19 | 2 g | | | | (RTU) 2 g 2 g, intravenous, | | 18 7:01 | | | | | ONCE, 1 dose, [facility] 09/05/17 at 0615 | | AM PDT | | | | + +---------+ +-----+---+---+ +---+---+ | | | +---+---+ + +---------+ +-----+ +---+ | magnesium sulfate in water IV | New Bag | 09/08/19 | 2 g | 25 mL/hr | | | (RTU) 2 g 2 g, intravenous, | | 18 2:33 | | | | | ONCE, 1 dose, [facility] 09/07/17 at 0230 | | AM PDT | | | | + +---------+ +-----+ +---+ +---+---+ | | | +---+---+ + +---------+ +-----+---+---+ | magnesium sulfate in water IV | New Bag | 09/23/19 | 2 g | | | | (RTU) 2 g 2 g, intravenous, | | 18 10:41 | | | | | ONCE, 1 dose, [facility] 09/22/17 at 1000 | | AM PDT | | | | + +---------+ +-----+---+---+ +---+---+ | | | +---+---+ + +---------+ +-----+ +---+ | magnesium sulfate in water IV | New Bag | 09/28/19 | 2 g | 25 mL/hr | | | (RTU) 2 g 2 g, intravenous, | | 18 10:32 | | | | | ONCE, 1 dose, [facility] 09/27/17 at 0815 | | AM PDT | | | | + +---------+ +-----+ +---+ +---+---+ | | | +---+---+ + +---------+ +-----+---+---+ | magnesium sulfate in water IV | New Bag | 10/12/19 | 2 g | | | | (RTU) 2 g 2 g, intravenous, | | 18 2:07 | | | | | ONCE, 1 dose, [facility] 10/11/17 at 0245 | | AM PDT | | | | + +---------+ +-----+---+---+ +---+---+ | | | +---+---+ + +---------+ +-----+---+---+ | magnesium sulfate in water IV | New Bag | 10/15/19 | 2 g | | | | (RTU) 2 g 2 g, intravenous, | | 18 10:50 | | | | | ONCE, 1 dose, [facility] 10/14/17 at 0815 | | AM PDT | | | | + +---------+ +-----+---+---+ +---+---+ | | | +---+---+ + +---------+ +-----+ +---+ | magnesium sulfate in water IV | New Bag | 09/02/19 | 4 g | 25 mL/hr | | | (RTU) 4 g 4 g, intravenous, | | 18 9:44 | | | | | ONCE, 1 dose, [facility] 09/01/17 at 0915 | | AM PDT [...] | | | 09/01/17 at 1103, Until [facility] 09/01/17 | | | | | | [...] | | | tube, ONCE, 1 dose, [facility] 09/04/17 at | | PM PDT [...] | | | tube, ONCE, 1 dose, [facility] 10/10/17 | | AM PDT | | | | | at 0400 | | | | | | + +-------+ +--------+---+---+ +---+---+ | | | +---+---+ + +-------+ +--------+---+---+ | potassium chloride (KLOR-CON) | Given | 10/12/19 | 40 mEq | | | | packet 40 mEq 40 mEq, feeding | | 18 2:07 | | | | | tube, ONCE, 1 dose, [facility] 10/11/17 | | AM PDT | | | | | at 0245 | | | | | | + +-------+ +--------+---+---+ +---+---+ | | | +---+---+ + +-------+ +--------+---+---+ | potassium chloride (KLOR-CON) | Given | 10/14/19 | 40 mEq | | | | packet 40 mEq 40 mEq, feeding | | 18 1:18 | | | | | tube, ONCE, 1 dose, [facility] 10/13/17 | | PM PDT | | | | | at 1315 | | | | | | + +-------+ +--------+---+---+ +---+---+ | | | +---+---+ + +-------+ +--------+---+---+ | potassium chloride (KLOR-CON) | Given | 10/19/19 | 40 mEq | | | | packet 40 mEq 40 mEq, feeding | | 18 4:24 | | | | | tube, ONCE, 1 dose, [facility] 10/18/17 | | PM PDT | | [...] | | | | First dose on [facility] 10/10/17 at | | AM PDT | [...] | | | | | modification) on [facility] 11/28/17 at | | | | | [...] | | | | | NEEDED, Starting [facility] 11/28/17 at | | AM PDT | | | | | 1612, Until [facility] 12/01/17 at 0842, | | | | [...] 4:31 | | | | | dose, [facility] 10/10/17 at 0415 | | AM PDT [...] | | | | | 1 dose, [facility] 10/10/17 at 1400 | | PM PDT [...]
--- OUTSIDE RECORDS SUMMARY | ~2019-12-20 | XMS | Encounter Summary ---
Demographics + + + | Address | [address] | | | [place] [address] | + + + | Home Phone [...] + | Author | [facility] [employer] [facility] | + + + | Organization | [facility] [employer] [facility] | + + + | Address | Unknown | + + + | Phone | Unavailable | + + + Support + + +---------+ + | Name | Relationship | Address | Phone | + + +---------+ + | Kaylie Baig | ECON | Unknown | | + + +---------+ + Care Team Providers + +------+ + | Care Cath Lab Name | Role | Phone | + [...] | | | | | Procedures | [place], [place] | [place] | | | | | [place]QUEST TO | [address] | [address] | | | | | SURGERY | Phone: | Phone: | | | | | [employer]ER | [phone] | [phone] | | | | | PA REPLACE | Fax: | Fax: | | | | | SKULL | [phone] | [phone] | | | | | PLATE/FLAP | [...] + + + + | 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
--- OUTSIDE RECORDS SUMMARY | ~2019-12-20 | XMS | Encounter Summary ---
Demographics + + + | Address | [address] | | | [place] [address] | + + + | Home Phone [...] + | Author | [facility] | + + + | Organization | [facility] [employer] [facility] | + [...] Team Providers + +------+ + | Care Pick Pulling Machine Tender Name | Role | Phone [...] | | | | | | Rd [facility] | | | | | | Hospital Admitting | | | | | | Desk Located on the | | | | | | 9th floor | | | | | | [place], [place] | | | | | | [address] | | | +--------+ + + + [...]
--- OUTSIDE RECORDS SUMMARY | ~2019-12-20 | XMS | Encounter Summary ---
Demographics + + + | Address | [address] | | | [place] [address] | + + + | Home Phone [...] + | Author | [facility] | + + + | Organization | [facility] | + + + | Address | Unknown | + + + | Phone | Unavailable | + + + Support + + +---------+ + | Name | Relationship | Address | Phone | + + +---------+ + | Kaylie Baig | ECON | Unknown | | + + +---------+ + Care Team Providers + +------+ + | Care Lieutenant General Name | Role | Phone | + [...] | | | | Rd [facility] | | | | | | Hospital Admitting | | | | | | Desk Located on the | | | | | | 9th floor | | | | | | [place], [place] | | | | | | [address] | | | +--------+ + + + [...]
--- OUTSIDE RECORDS SUMMARY | ~2019-12-20 | XMS | Encounter Summary ---
Demographics + + + | Address | [address] | | | [place] [address] | + + + | Home Phone [...] | [facility] | + + + | Organization | [facility] [employer] [facility] | + + + | Address | Unknown | + + + | Phone | Unavailable | + + + Support + + +---------+ + | Name | Relationship | Address | Phone | + + +---------+ + | Kaylie Baig | ECON | Unknown | | + + +---------+ + Care Team Providers + +------+ + | Care Curatorial Assistant Name | Role | Phone | [...] floor | | | | | | [place], [place] | | | | | | [address] | | | +--------+ + + + [...]
[~2019-12-20 01:10] MED LIST changes: +PROTONIX40 MG PO; +ZOFRAN4 MG PO
== END 2019-12-20 05:16 | disposition home or self-care (01) ==
LOC: ED 01:10
DX: F10.129 Alcohol abuse with intoxication, unspecified (principal); F17.200 Nicotine dependence, unspecified, uncomplicated; Z79.899 Other long term (current) drug therapy
CPT/HCPCS: 99284

== ENCOUNTER 2019-12-25 23:54 | Emergency (ER) | payer OTHER ==
[~2019-12-25] VITALS: Ht 165.1 cm; Wt 70.7 kg
--- OUTSIDE RECORDS SUMMARY | ~2019-12-25 | XMS | Encounter Summary ---
Demographics + + + | Address | [address] | | | [place] [address] | + + + | Home Phone | | + + + | Preferred Language | Unknown | + + + | Marital Status | Single | + + + | Mu-Ism Affiliation | PEN | + + + | Race | or | + + + | Ethnic Group | Not or | + + + Author + + + | Author | [facility] | + + + | Organization | [facility] [employer] [facility] | + + + | Address | Unknown | + + + | Phone | Unavailable | + + + Support + + +---------+ + | Name | Relationship | Address | Phone | + + +---------+ + | Kaylie Baig | ECON | Unknown | | + + +---------+ + Care Team Providers + +------+ + | Care Medical Claims Examiner Name | Role | Phone | + [...] | | | | | | Rd [facility] | | | | | | Hospital Admitting | | | | | | Desk Located on the | | | | | | 9th floor | | | | | | [place], [place] | | | | | | [address] | | | +--------+ + + + [...]
--- OUTSIDE RECORDS SUMMARY | ~2019-12-25 | XMS | Encounter Summary ---
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 #Left hemothorax Chest tube placed [...] LFTS wnl. Continue TPN. EM CUNNINGHAM MD [facility] [address] [place] [address] Christian Kelley PA-C - 09/24/2017 11:07 AM [...] with agitation Having difficulty swallowing again - FARM CREW MEMBER to re-eval and obtain barium swallow Current [...] HEENT: EOMs intact to exam Neck: in MARGIN ANALYST brace Respiratory: CTA bilaterally, lungs symmetrical, equal chest wall rise, no retractions CV: RRR GI: non distended, last BM 09/23 : good urine output Extremities: SCD's in place, no peripheral edema, wiggles toes and toes pink and well perfu sed Musculoskeletal: 5/5 strength in bilateral installation coordinator (but with slightly weaker on left) , [...] PRN seroquel dose QHS for insomnia/restlessness at [facility] - Haldol 5mg q12hr prn for severe [...] likely 2/2 AMS & delirium - Failed FARM CREW MEMBER eval 09/19 & 09/20, made NPO & dobhoff reinserted 09/21 but pulled overnight - Per FARM CREW MEMBER on 09/21, ok for therapeutic pureed with [...] . - C-collar at all times, use MARGIN ANALYST when OOB - Follow-up with Neurosurgery on [...] Start abx for dehiscence. EM CUNNINGHAM MD [facility] [address] [place] [address] Ginette Campos PA-C - 09/24/2017 9:31 AM [...] 4 extremities Unable to assess drift. Motor: Car Sales Associate Bicep Tricep Delt R 5 5 5 [...] further questions or concerns. Ginette Campos PA-C [facility] [address] [place] [phone] abriel Atkins stephanie Cleary, AGACNP - 09/23/2017 6:32 AM PDT Trauma [...] hiscence, draining minimal serosang fluid Neck: in MARGIN ANALYST brace Respiratory: unlabored on room air CV: [...] PRN seroquel dose QHS for insomnia/restlessness at [facility] - Repeat ECG 09/22 with QTc WNL. [...] likely 2/2 AMS & delirium - Failed FARM CREW MEMBER eval 09/19 & 09/20, made NPO & dobhoff reinserted 09/21 but pulled overnight - Per FARM CREW MEMBER on 09/21, ok for therapeutic pureed with [...] . - C-collar at all times, use MARGIN ANALYST when OOB - Follow-up with Neurosurgery on 10/21 with repeat X-rays #Blunt abdominal trauma #Splenic laceration S/p laparotomies x2. Fascia closed 09/02 Wound vac removed by patient, but wound remains duke n/dry/intact. [place] removed 09/17. #Left hemothorax Chest tube placed [...] dysphagia & delir ium improves Sherine Sarmiento, [facility] [place] [phone] Dallin Deshpande MD - 09/22/2017 8:03 AM [...] admitted for ped vs a uto 5/5/18. Physical exam reveals unchanged L anisocoria and [...] Dallin Bourgeois MD Neurosurgery PGY1 | Pager #[phone] [facility] - 09/22/2017 6:52 AM PDTFormatting of this [...] 24hr events: - Therapeutic purees initiated by FARM CREW MEMBER yesterday - Trickle feeds via Dobbhoff, pt pulled Dobbhoff yesterday evening- not replaced - BOOTH CASHIER called around 2130 for new left facial droop (see separate notes), CT revealed increa se in SDH from 12 to 17mm with no change in midline shift. [facility] - NSG and stroke team [...] sluggish. Slight left facial droop Neck: in [place] collar Respiratory: unlabored on room air CV: [...] PRN seroquel dose QHS for insomnia/restlessness at [facility]- - Repeat ECG 09/22 with Q Tc WNL. - Haldol 5mg q12hr prn for severe agitation #Substance abuse, concern for Alcohol withdrawal - CIWA discontinued 09/08, not scoring. - Thiamine & folate started 09/21 #Dysphagia, risk for aspiration #Protein calorie malnutirtion - likely 2/2 AMS & delirium - Failed FARM CREW MEMBER eval 09/19 & 09/20, made NPO & dobhoff reinserted 09/21 but pulled overnight - Per FARM CREW MEMBER on 09/21, ok for therapeutic pureed with [...] . - C-collar at all times, use MARGIN ANALYST when OOB - Follow-up with Neurosurgery on [...] when dysphagia & delirium improves Sherine Sarmiento, [facility] [place] [phone] Associated attestation - Nubia Nieto MD,MPH - 09/22/2017 9:39 PM PDTATTENDING PROGRES S NOTE I personally interviewed and examined the patient today with the trauma team and the nurse practitioner. I participated in the development of and agree with the assessment and plan a s outlined in [facility] note. Adding seroquel qHS for sleep hygiene. Nubia Nieto MD, MPH Trauma, Critical Care & Acute Care Surgery [facility] [phone] Sami Black C - 09/21/2017 10:25 PM PDTBrief Progress Note [...] in the morning. Plan: -neuro checks; page [phone] for any decline in neurological examination -pain control -Hard C collar at all times and place MARGIN ANALYST prior to mobilizing OOB. Anticipated duration of Collar/MARGIN ANALYST is 12 weeks -repeat CT head for any new decline in neurological exam and page [phone] -NPO at midnight tonight -please hold tonight's planned dose of Lovenox -further recommendations in the morning Sami Black MD, PhD PGY-3 Resident Neurosurgery [id number] signed by Sami Black at 09/21/2017 10:50 PM [facility] - 09/21/2017 7:10 AM PDTFormatting of this [...] [place]vena placem ent 24hr events: - Failed FARM CREW MEMBER eval again yest morning, continued NPO - [...] reactive. Dobbhoff tube in place Neck: in [place] collar Respiratory: unlabored on room air CV: [...] likely 2/2 AMS & delirium - Failed FARM CREW MEMBER eval 09/19 & 09/20, made NPO & dobhoff reinserted yesterday - Trickle feeds started this am at 20ml/hr, increase very slowly by 10ml every 12 hrs to go al of 75 due to hx of mesenteric hematomas and previous inability to tolerate TF - Per FARM CREW MEMBER today, ok for therapeutic pureed with nectar [...] . - C-collar at all times, use MARGIN ANALYST when OOB - Follow-up with Neurosurgery on 10/21 with repeat X-rays #Blunt abdominal trauma #Splenic laceration S/p laparotomies x2. Fascia closed 09/02 Wound vac removed by patient, but wound remains duke n/dry/intact. [place] removed 09/17. #Left hemothorax Chest tube placed [...] & delirium [place] [phone] Associated attestation - Fidelina Shields MD - 09/21/2017 9:36 PM PDTAttending: I saw and examined Diogenes Temple ([id number]) with KESHAWN Alexander on mornin g rounds [...] enough to re-trial PO. Fidelina Shields MD [facility] Division of Trauma, Critical Care and Acute Care Surgery Office: [phone] Pager: [phone] Sherine Sarmiento AGACNP - 09/20/2017 7:41 AM [...] haldol given yesterday afternoon for agitation - FARM CREW MEMBER paged to re-eval in afternoon after concern for aspiration, made NPO by FARM CREW MEMBER - DARNELL SOLANO Current meds: I have [...] right pupil 3 and reactive Neck: in [place] collar Respiratory: unlabored on room air CV: [...] thick/pureed d iet. Made NPO yesterday by FARM CREW MEMBER after concern for aspiration. This is likely 2/2 waxing & wan ing delirium & AMS - FARM CREW MEMBER re-eval today recommend continue NPO d/t overt clinical signs of aspiration - Place Dobbhoff tube and restart feeds, slowly progress to goal - Stop TPN when tolerating tube feeds - FARM CREW MEMBER will follow closely, as his AMS improves [...] . - C-collar at all times, use MARGIN ANALYST when OOB - Follow-up with Neurosurgery on 10/21 with repeat X-rays #Blunt abdominal trauma #Splenic laceration S/p laparotomies x2. Fascia closed 09/02 Wound vac removed by patient, but wound remains duke n/dry/intact. [place] removed 09/17. #Left hemothorax Chest tube placed [...] & delirium [place] [phone] Associated attestation - Fidelina Shields MD - 09/20/2017 9:34 PM PDTAttending: I saw and examined Diogenes Temple ([id number]) with KESHAWN Alexander on mornin g rounds [...] dispo planning when able. Fidelina Shields MD [facility] Division of Trauma, Critical Care and Acute Care Surgery Office: [phone] Pager: [phone] Mary Medrano MD,MPH - 09/19/2017 6:22 AM [...] downgraded from thin to thick liquids by FARM CREW MEMBER Current meds: I have independently reviewed current [...] intact, small Right fluctuant pseudomeningocele Neck: in [place] collar Respiratory: unlabored on room air CV: [...] DHT on09/19. - Cleared for diet by FARM CREW MEMBER, tolerating purees, 749 Calories yesterday - Restart Calorie count: if taking >700 again will be OK for full po diet, otherwise replac e DHT and restart TF - Stop TPN tomorrow regardless - Still considering repeat CT abdomen/pelvis #Dysphagia DHTreplaced overnight 09/07. TF held due to emesis and possible ileus, aspiration risk. DH T pulled overnight on 09/18 - FARM CREW MEMBER as able Resolved or chronic issues/Plan: #BIG 3 TBI #Right synthetic cranioplasty Neurosurgery consulted. Non-operative management. Last head CT 09/12 stable. Expected pseudo meningocele. Left-sided deficits consistent with baseline. - Stat head CT for any neurologic decline #C7 bilateral lamina fractures #C6-T2 spinous process fractures Neurosurgery consulted. Non-operative management. Upright cervical X-rays completed on 09/14 . - C-collar at all times, use MARGIN ANALYST when OOB - Follow-up with Neurosurgery on [...] M.D., M.P.H. Neurological Surgery Resident PGY-1 Pager: [phone] Associated attestation - Fidelina Shields MD - 09/19/2017 1:36 PM PDTAttending: I saw and examined Diogenes Temple ([id number]) with the residents on morning rounds 09/19/17 and agree with the assessment and plan as outlined in this note and participated in the plan aashish of care. Improving po intake, will titrate TPN. Plan to DC TPN tomorrow and transition to PO vs PO + TF depending on calorie counts. Once of restraints will begin looking for placement. Fidelina Shields MD [facility] Division of Trauma, Critical Care and Acute Care Surgery Office: [phone] Pager: [phone] Mary Medrano MD,MPH - 09/18/2017 6:17 AM [...] fascial closure, Provena placem ent 24hr events: [place] removed yesterday Small emesis overnight, nausea resolved [...] fluctuant pseudomeningocele,Dobhoff tubein p lace Neck: in [place] collar Respiratory: unlabored on room air CV: [...] holding TF - Cleared for diet by FARM CREW MEMBER, tolerating small quantities of purees - Will need repeat CT A/P within 1-2 days #Hypervolemia I&O approaching even. Appears to have been auto-diuresing. - Continue to monitor urine output - Monitor electrolytes, replete prn #Dysphagia DHTreplaced overnight 09/07. TF held due to emesis and possible ileus, aspiration risk. - FARM CREW MEMBER as able #C7 bilateral lamina fractures #C6-T2 spinous process fractures Neurosurgery consulted. Non-operative management. Upright cervical X-rays completed on 09/14 . - C-collar at all times, use MARGIN ANALYST when OOB - Follow-up with Neurosurgery on [...] by patient, but wound remains duke n/dry/intact. [place] removed 09/17. #Left hemothorax Chest tube placed [...] M.D., M.P.H. Neurological Surgery Resident PGY-1 Pager: [phone] signed by Fidelina Shields MD at 09/19/2017 3:58 PM PDT Associated attestation - Fidelina Shields MD - 09/19/2017 3:58 PM PDTAttending: I saw and examined Diogenes Temple ([id number]) with the residents on morning rounds 09/18/17 and agree with the assessment and plan as outlined in this note and participated in the plan aashish of care. Fidelina Shields MD [facility] Division of Trauma, Critical Care and Acute Care Surgery Office: [phone] Pager: [phone] Mary Medrano MD,MPH - 09/17/2017 6:26 AM [...] fluctuant pseudomeningocele,Dobhoff tubein p lace Neck: in [place] collar Respiratory: unlabored on room air CV: [...] holding TF - Cleared for diet by FARM CREW MEMBER, tolerating small quantities of purees #Hypervolemia I&O approaching even. Appears to have been auto-diuresing. - Continue to monitor urine output - Monitor electrolytes, replete prn #Dysphagia DHTreplaced overnight 09/07. TF held due to emesis and possible ileus, aspiration risk. - FARM CREW MEMBER as able #C7 bilateral lamina fractures #C6-T2 spinous process fractures Neurosurgery consulted. Non-operative management. Upright cervical X-rays completed on 09/14 . - C-collar at all times, use MARGIN ANALYST when OOB - Follow-up with Neurosurgery on [...] M.D., M.P.H. Neurological Surgery Resident PGY-1 Pager: [phone] signed by Fidelina Shields MD at 09/17/2017 2:29 PM PDT Associated attestation - Fidelina Shields MD - 09/17/2017 2:29 PM PDTAttending: I saw and examined Diogenes Temple ([id number]) with the residents on morning rounds 09/17/17 [...] repeat C T abdomen/pelvis. Fidelina Shields MD [facility] Division of Trauma, Critical Care and Acute Care Surgery Office: [phone] Pager: [phone] Venita Pruitt PA-C - 09/16/2017 6:45 AM [...] HEENT: DHT in place, CARRI Neck: in [place] collar Respiratory: CTA bilaterally, lungs symmetrical, equal [...] daily - Haldol 5mg q12hr prn - FARM CREW MEMBER: severe cognitive deficits - continue FARM CREW MEMBER therapy #Bilious emesis #Ileus #Aspiration #Leukocytosis - bilious emesis overnight, trickle tube feeds stopped; will restart tube feeds slowly this afternoon and determine tolerance - hx of ileus during hospitalization, NG removed 09/14 - Strict NPO per FARM CREW MEMBER - Bowel meds via DHT - TPN continued #Hypervolemia I&O approaching even. Appears to have been auto-diuresing. - Continue to monitor urine output - Monitor electrolytes, replete prn #Dysphagia DHTreplaced overnight 09/07/17. TF held for bilious vomiting last night - FARM CREW MEMBER as able - eval from 09/13 with oropharyngeal dysphagia - strict NPO #C7 bilateral lamina fractures #C6-T2 spinous process fractures Neurosurgery consulted. Non-operative management. - C-collar at all times, use MARGIN ANALYST when OOB - Upright films in MARGIN ANALYST completed yesterday - follow up in 6 [...] need eventual placement. Venita Pruitt PA-[place] [phone] [place] [phone] [facility] [address] [place] [address] [phone] Associated attestation - Fidelina Shields MD - 09/17/2017 3:42 PM PDTAttending: I saw and examined Diogenes Temple with Venita Pruitt PA-C on morning rounds 09/16/17 and ag ree with the assessment and plan as outlined in this note and participated in the planning o f care. Ileus precludes advancing tube feeds. Will allow po as tolerated and continue tpn. Fidelina Shields MD [facility] Division of Trauma, Critical Care and Acute Care Surgery Office: [phone] Pager: [phone] Dallin Bourgeois MD - 09/15/2017 12:06 PM [...] Mr. Temple. Dallin Bourgeois MD Neurosurgery PGY1 [id number] signed by Dallin Bourgeois MD at 09/15/2017 [...] tube in place and EOMI Neck: in [place] collar Respiratory: CTA bilaterally, lungs symmetrical, equal [...] daily - Haldol 5mg q12hr prn - FARM CREW MEMBER: severe cognitive deficits - continue FARM CREW MEMBER therapy #Bilious emesis #Ileus #Aspiration #Leukocytosis On [...] with resolving ileus - trickle feeds per online marketing coordinator recommendations started today - TPN consult obtained [...] emesis and possible ileus, aspiration risk. - FARM CREW MEMBER as able - eval from 09/13 with oropharyngeal dysphagia - strict NPO #C7 bilateral lamina fractures #C6-T2 spinous process fractures Neurosurgery consulted. Non-operative management. - C-collar at all times, use MARGIN ANALYST when OOB - Upright films in MARGIN ANALYST completed yesterday - will notify NSG for [...] nutrition since admission, lizabeth nue bowel regimen DIANNA DYERC Associated attestation - Em Cunningham MD - 09/26/2017 2:30 PM PDTI was present and rou nded with the Advanced Practice Provider today. I interviewed and examined the patient. I reviewed the history, as documented today. I agree with the ASHLEY assessment and plan. Cont inuing to monitor for alcohol withdrawal and using olanzapine and haldol. FARM CREW MEMBER will reeval to day. Continue strict NPO and will start TPN. Off abx. EM CUNNINGHAM MD [facility] [address] [place] [address] Mary Medrano MD,MPH - 09/14/2017 6:39 AM [...] fluctuant pseudomeningocele,Dobhoff tubein p lace Neck: in [place] collar Respiratory: sats stable room air, unlabored, [...] emesis and possible ileus, aspiration risk. - FARM CREW MEMBER as able #C7 bilateral lamina fractures #C6-T2 spinous process fractures Neurosurgery consulted. Non-operative management. - C-collar at all times, use MARGIN ANALYST when OOB - Upright films in MARGIN ANALYST when able Resolved or chronic issues/Plan: #BIG [...] M.D., M.P.H. Neurological Surgery Resident PGY-1 Pager: [phone] signed by Shlomo Bravo MD at 09/16/2017 11:14 AM PDT Associated attestation - Shlomo Bravo MD - 09/16/2017 11:14 AM PDTFormatting of this note m ight be different from the original. I saw and examined Diogenes Temple ([id number]) with the TRAUMA team on 09/14/2017. I [...] shock, initial encounter (HCC) Shlomo Bravo MD Child Study Team Director Division of Trauma and Critical Care Mary [...] NG tub es in place Neck: in [place] collar Respiratory: sats stable room air, unlabored, [...] emesis and possible ileus, aspiration risk. - FARM CREW MEMBER as able #C7 bilateral lamina fractures #C6-T2 spinous process fractures Neurosurgery consulted. Non-operative management. - C-collar at all times, use MARGIN ANALYST when OOB - Upright films in MARGIN ANALYST when able Resolved or chronic issues/Plan: #BIG [...] M.D., M.P.H. Neurological Surgery Resident PGY-1 Pager: [phone] signed by Greg Paige MD,PhD at 09/13/2017 1:32 PM PDT Associated attestation - Greg Paige MD,PhD - 09/13/2017 1:32 PM PDTEmergency General Santos rgery/Trauma Attending Addendum Date of Service: 09/13/2017 I saw and examined Diogenes Temple ([id number]) with the resident and agree with the assessmen t and plan as outlined in this note and participated in the planning of care. Greg Paige MD, PhD, FACS cook chief Division of Trauma, Critical Care & Acute Care Surgery [facility] [phone] Mary Medrano MD,MPH - 09/12/2017 6:32 AM [...] NG tub es in place Neck: in [place] collar Respiratory: sats stable room air, unlabored, [...] emesis and possible ileus, aspiration risk. - FARM CREW MEMBER as able #C7 bilateral lamina fractures #C6-T2 spinous process fractures Neurosurgery consulted. Non-operative management. - C-collar at all times, use MARGIN ANALYST when OOB - Upright films in MARGIN ANALYST when able Resolved or chronic issues/Plan: #BIG [...] M.D., M.P.H. Neurological Surgery Resident PGY-1 Pager: [phone] signed by Greg Paige MD,PhD at 09/12/2017 1:24 PM PDT Associated attestation - Greg Paige MD,PhD - 09/12/2017 1:24 PM PDTEmergency General Santos rgery/Trauma Attending Addendum Date of Service: 09/12/2017 I saw and examined Diogenes Temple ([id number]) with the resident and agree with the assessmen t and plan as outlined in this note and participated in the planning of care. Post-op ileus - continue with NPO/NGT decompression. Consider TPN in the coming days if there is no impro vement. Greg Paige MD, PhD, FACS cook chief Division of Trauma, Critical Care & Acute Care Surgery [facility] [phone] Christian Kelley PA-C - 09/11/2017 3:54 PM [...] and NG tube inn place Neck: in [place] collar Respiratory: course bilaterally and diffuse rhonchi, lungs symmetrical, equal chest wall ri se, no retractions CV:regular rate GI: midline incision with fernadnez c/d/I, non tender, non distended, last BM [...] to emesis and possible aspiration event. - FARM CREW MEMBER deferring evaluation as patient continues with NGT to suction C7 bilateral lamina fractures C6-T2 spinous process fractures Neurosurgery consulted. Non-operative management. - C-collar at all times, use MARGIN ANALYST when OOB - Upright films in MARGIN ANALYST when able Resolved or chronic issues/Plan: BIG [...] 09/11/2017 I saw and examined Diogenes Temple ([id number]) with the ASHLEY and agree with the assessment and plan as outlined in this note and participated in the planning of care. Leukocytosis persists. Etiology unclear. Will obtain CT C/A/P to search for source. Mathew-cx if febrile. Greg Paige MD, PhD, FACS cook chief Division of Trauma, Critical Care & Acute Care Surgery [facility] [phone] Ginette Campos PA-C - 09/10/2017 9:32 AM [...] sensation intact in all 4 extremities Motor: Car Sales Associate Bicep Tricep Delt R 4 4+ 4 [...] C collar at all times and place MARGIN ANALYST prior to mobilizing OOB. Anticipated duration of Collar/MARGIN ANALYST is 12 weeks. -Obtain upright X-rays C spine AP/Lateral when able -Outpatient follow up arranged. Ginette Campos PA-C [facility] [address] [place] [address] Mary Devine M D,MPH - 09/10/2017 6:27 [...] feeding tu be in place Neck: in [place] collar Respiratory: sats stable on 2L NC, [...] to emesis and possible aspiration event. - FARM CREW MEMBER as able #C7 bilateral lamina fractures #C6-T2 spinous process fractures Neurosurgery consulted. Non-operative management. - C-collar at all times, use MARGIN ANALYST when OOB - Upright films in MARGIN ANALYST when able Resolved or chronic issues/Plan: #BIG [...] M.D., M.P.H. Neurological Surgery Resident PGY-1 Pager: [phone] signed by Greg Paige MD,PhD at 09/10/2017 8:05 PM PDT Associated attestation - Greg Paige MD,PhD - 09/10/2017 8:05 PM PDTEmergency General Santos rgery/Trauma Attending Addendum Date of Service: 09/10/2017 I saw and examined Diogenes Temple ([id number]) with the resident and agree with the assessmen t and plan as outlined in this note and participated in the planning of care. Greg Paige MD, PhD, FACS cook chief Division of Trauma, Critical Care & Acute Care Surgery [facility] [phone] Mary Medrano MD,MPH - 09/09/2017 6:25 AM [...] feeding tub e in place Neck: in [place] collar Respiratory: unlabored on room air, lungs [...] DHT, which was replaced overnight 09/07/17. - FARM CREW MEMBER #C7 bilateral lamina fractures #C6-T2 spinous process fractures Neurosurgery consulted. Non-operative management. - C-collar at all times, use MARGIN ANALYST when OOB - Upright films in MARGIN ANALYST when able #Fever Febrile on 09/04/17. Mathew-cultures [...] M.D., M.P.H. Neurological Surgery Resident PGY-1 Pager: [phone] signed by Mary Medrano MD,MPH at 09/09/2017 11:35 AM Rosa Sy MD - 09/08/2017 11:40 AM PDTFormatting of this note might be different from katalina troncoso. NEUROSURGERY PROGRESS NOTE INTERVAL UPDATE: - Transferred [...] pupil reactive FS, TM RUE/RLE 5/5 LUE 3/5 LLL 1/5 ASSESSMENT/PLAN: Diogenes Temple is a 67 y.o. [...] ccollar at all times, orthotics to provide MARGIN ANALYST brace - T/L cleared - INR <1.4, check daily - Plt >100k - Check Na at least daily Please contact the neurosurgery resident on-call pager [phone] with questions. Rosa Stallworth MD Resident Physician, PGY-1 Otolaryngology - Head and Neck Surgery Pgr [phone] ossMary MD ,MPH - 09/08/2017 6:35 AM [...] feeding tub e in place Neck: in [place] collar Respiratory: unlabored on room air, lungs [...] DHT, which was replaced overnight 09/07/17. - FARM CREW MEMBER #C7 bilateral lamina fractures #C6-T2 spinous process fractures Neurosurgery consulted. Non-operative management. - C-collar for now - Orthotics to fit MARGIN ANALYST brace for OOB activity. #Fever Febrile on [...] M.D., M.P.H. Neurological Surgery Resident PGY-1 Pager: [phone] signed by Santos Weiss MD at 09/08/2017 12:04 PM PDT Associated attestation - Santos Weiss MD - 09/08/2017 12:04 PM PDTI was present with the resident during the history and exam. I discussed the case with the resident and agree with the findings and plan as documented in the resident s note. SANTOS WEISS MD [facility] [address] [place] [address] [phone] Gurpreet Foy PA-C - 09/07/2017 6:47 AM [...] place Musculoskeletal: Wiggles toes. No LE edema. Car Sales Associate strength 5/5 on R, 3/5 on L. [...] primary traum a survey was done at [facility] in [facility] which identified the above listed injuries. He [...] in collar currently, orthotics to treat in MARGIN ANALYST brace when OOB. Don/Doff while in bed [...] spent in conjunction with my supervising physicians. Gurprete Foy PA-C Division of Trauma Department of Surgery Mail Code: L611 [address] [place] [address] Jeovany Meade MD - 09/07/2017 4:05 AM PDT NEUROSURGERY PROGRESS NOTE INTERVAL UPDATE: Extubated during day yesterday Needs some NT suction Orthotic to fit MARGIN ANALYST this AM OBJECTIVE: Last 24 hour min/max [...] Out: 550 [Urine:550] 09/05 2300 - 09/06 2300 In: 1518 [I.V.:135] Out: 3060 [Urine:3060] No Data Recorded No Data Recorded Labs: Complete Blood Count/Coags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 [address] | | | SERVICES, CORE | [address] [...] | + + + + + | [facility] | [address] | [place] [address] | | | SERVICES, [facility] | [address] | | | + [...] + + + + | PRODUCT | [id number] | | [facility] | | | UNIT [...] + + + + | EXPIRATION | [id number] | | [facility] | | | DATE [...] + + + + | BLOOD | [id number] | | [facility] | | | PRODUCT [...] | + + + + + | [facility] | [address] | [place] [address] | | | SERVICES, | [address] [...] + + + + | PRODUCT | [id number] | | [facility] | | | UNIT [...] + + + + | EXPIRATION | [id number] | | [facility] | | | DATE [...] + + + + | BLOOD | [id number] | | [facility] | | | PRODUCT [...] | + + + + + | [facility] | [address] | [place] [address] | | | SERVICES, | [address] [...] [facility] | [address] | [place] [address] | | | SERVICES, CORE | [address] [...] [facility] | [address] | [place] [address] | | | SERVICES, | [address] [...] [facility] | [address] | [place] [address] | | | SERVICES, | [address] [...] | + + + + + | [facility] | [address] | [place] [address] | | | SERVICES, CORE | [address] | | | + + + + + 12 LEAD ECG (11/04/2017 8:35 AM PDT) + + + + + + | Component | Value | Ref Range | Performed | Pathologist | | | | | At | Signature | + + + + + + | VENTRICULAR | 71 | bpm | [facility] | | [...] DEPT OF | [address] | [place], [place] | | | CARDIOLOGY | [address] | [id number] | | + + + + + [...] [facility] | [address] | [place] [address] | | | SERVICES, CORE | [address] [...] | 09/30/2013. | LABORATORY | | | NATALEE WORTHINGTON | + + + + + + + + | Performing | Address | City/State/Zipcode | Phone Number | | Organization | | | | + + + + + | [facility] | [address] | [place] [address] | | | NATALEE WORTHINGTON | [address] [...] + | [facility] | [address] | [place] [address] | | | [facility] | | | | + [...] [facility] | [address] | [place] [address] | | | NATALEE WORTHINGTON | PARK [...] | + + + + + | [facility] | [address] | [place] [address] | | | SERVICES, CORE | VILMA [...] | | | LABORATORY | | | TUNISIAN | | | SERVICES, | | | [...] the MDRD equation recommended by the | [facility] | | National Kidney Disease Education [...] | + + + + + | [facility] | [address] | [place] [address] | | | SERVICES, CORE | PARK [...] [facility] | [address] | [place] [address] | | | SERVICES, CORE | PARK [...] | + + + + + | [facility] | [address] | [place] [address] | | | NATALEE WORTHINGTON | VILMA [...] | | | LABORATORY | | | TUNISIAN | | | SERVICES, | | | [...] | + + + + + | [facility] | [address] | [place] [address] | | | SERVICES, CORE | VILMA [...] | + + + + + | [facility] | [address] | [place] [address] | | | SERVICES, CORE | PARK [...] | | | LABORATORY | | | TUNISIAN | | | SERVICES, | | | [...] the MDRD equation recommended by the | [facility] | | National Kidney Disease Education [...] [facility] | [address] | [place] [address] | | | SERVICES, CORE | VILMA [...] + + + + | QTC-BAZETT | 441 | ms | [facility] [...] DEPT OF | [address] | [place], [place] | | | CARDIOLOGY | [address] | [address] | | + + + + + [...] | + + + + + | [facility] | [address] | [place] [address] | | | SERVICES, CORE | VILMA [...] | | | LABORATORY | | | TUNISIAN | | | SERVICES, | | | [...] | + + + + + | [facility] | [address] | [place] [address] | | | SERVICES, CORE | VILMA [...] results were discussed with | | | Black of trauma on 10/31/2017 7:02 PM by [...] Note | + + | Service Account, Zakada Res In Interface - 10/31/2017 8:22 PM [...] + | [facility] | [address] [facility] | [place], [place] | | | CARDIOLOGY | [address] | [address] | | + + + + + [...] | | | LABORATORY | | | TUNISIAN | | | SERVICES, | | | [...] the MDRD equation recommended by the | [facility] | | National Kidney Disease Education Program. [...] | + + + + + | [facility] | [address] | [place] [address] | | | SERVICES, CORE | PARK [...] [facility] | [address] | [place] [address] | | | SERVICES, CORE | PARK [...] + | [facility] | [address] | [place], [place] | | | [facility] | [address] | [address] | | | TESTS | | | [...] [facility] | [address] | [place] [address] | | | SERVICES, CORE | PARK [...] | | | LABORATORY | | | TUNISIAN | | | SERVICES, | | | [...] | + + + + + | [facility] | [address] [facility] | [place] [address] | | | NATALEE WORTHINGTON | VILMA [...] Note | + + | Service Account, [employer] In Interface - 10/29/2017 12:13 PM PDT [...] [facility] | [address] | [place], [place] | | | [facility] | [address] | [address] | | | TESTS | | | [...] | + + + + + | [facility] | [address] | [place] [address] | | | SERVICES, CORE | PARK [...] | | | LABORATORY | | | TUNISIAN | | | SERVICES, | | | [...] | + + + + + | [facility] | [address] | [place] [address] | | | SERVICES, CORE | VILMA [...] (H) | 70 - 99 mg/dL | [facility] - | | | GLUCOSE, | [...] [facility] | [address] | [place], [place] | | | GL[facility]IA GENAO OF CARE | [address] | [address] | | | TESTS | | | [...] + + | QTC-BAMARIA DEL CARMEN | 463 | ms | [facility] [...] DEPT OF | [address] | [place], [place] | | | CARDIOLOGY | [facility] | [address] | | + + + + + CAPILLARY BLOOD GLUCOSE (NO CHG), POC (10/28/2017 12:00 PM PDT) + +---------+ + + + | Component | Value | Ref Range | Performed | Pathologist | | | | | At | Signature | + +---------+ + + + | BLOOD | 141 (H) | 70 - 99 mg/dL | [facility] - | | | GLUCOSE, | [...] [facility] | [address] | [place], [place] | | | [facility] | [address] | [address] | | | TESTS | | | [...] [facility] | [address] | [place], [place] | | | GLORIA GENAO OF GM | [facility] | [address] | | | TESTS | | | [...] | 09/30/2013. | LABORATORY | | | NATALEE WORTHINGTON | + + + + + + + + | Performing | Address | City/State/Zipcode | Phone Number | | Organization | | | | + + + + + | [facility] | [address] | [place] [address] | | | NATALEE WORTHINGTON | VILMA [...] - | | | | | | [facility] | | + + + + + + + + | Specimen | + + | Blood - Blood | | (substance) | + + + + + + + | Performing | Address | City/State/Zipcode | Phone Number | | Organization | | | | + + + + + | [facility] | [address] | [place] [address] | | | [facility] | | | | + [...] [facility] | [address] | [place] [address] | | | NATALEE WORTHINGTON | VILMA [...] | + + + + + | [facility] | [address] | [place] [address] | | | SERVICES, CORE | PARK [...] [facility] | [address] | [place] [address] | | | SERVICES, CORE | PARK [...] | | | LABORATORY | | | TUNISIAN | | | SERVICES, | | | [...] the MDRD equation recommended by the | [facility] | | National Kidney Disease Education Program. [...] | + + + + + | [facility] | [address] [facility] | [place] [address] | | | NATALEE WORTHINGTON | VILMA [...] | + + + + + | [facility] | [address] | [place] [address] | | | SERVICESNATALEE | [address] | | | + + + + + CAPILLARY BLOOD GLUCOSE (NO CHG), POC (10/28/2017 12:34 AM PDT) + +---------+ + [...] [facility] | [address] | [place], [place] | | | GLORIA GENAO OF GM | [facility] | [address] | | | TESTS | | | [...] (H) | 70 - 99 mg/dL | [facility] - | | | GLUCOSE, | [...] [facility] | [address] | [place], [place] | | | [facility] | [address] | [address] | | | TESTS | | | [...] Note | + + | Service Account, Zakada Res In Interface - 10/28/2017 9:21 AM [...] At | + + + | EXAM: SD CHEST PICC LINE CHECK HISTORY: picc done [...] as now presented. Final signature: Francisco Javier Valverde, | | | 10/27/2017 6:28 PM Preliminary: Francisco Javier Valverde MD | | | Dictation initiated: Francisco Javier Valverde MD 10/27/2017 6:27 PM | | + + + + + | Procedure Note | + + | Service Account, Radiant Res In Interface - 10/27/2017 6:29 PM PDT EXAM: SD CHEST | | PICC LINE CHECK HISTORY: [...] Javier Valverde MD 10/27/2017 6:28 PM Preliminary: Franicsco Javier Valverde MD | | Dictation initiated: [...] and TPN Procedure | | | location: Unit:13 Room: 4 Providers: Attending name: | | [...] correct | | | patient, procedure, equipment, marketing support specialist and site/side marked as | | | [...] vein. Catheter lot number: | | | [id number] with a length of 55 cm was [...] [facility] | [address] | [place], [place] | | | [facility] | [address] | [address] | | | TESTS | | | [...] + + + + | QTC-BAZETT | 468 | ms | [facility] [...] DEPT OF | [address] | [place], [place] | | | CARDIOLOGY | [address] | [address] | | + + + + + [...] [facility] | [address] | [place], [place] | | | [facility] GE[facility] OF CARE | [address] | [address] | | | TESTS | | | [...] | + + + + + | [facility] | [address] | [place] [address] | | | NATALEE WORTHINGTON | VILMA [...] | | | LABORATORY | | | TUNISIAN | | | SERVICES, | | | [...] | + + + + + | [facility] | [address] | [place] [address] | | | SERVICES, CORE | VILMA [...] + | [facility] | [address] | [place], [place] | | | GLORIA GENAO OF GM | [facility] | [address] | | | TESTS | | | [...] [facility] | [address] | [place], [place] | | | GL[facility]IA GENAO OF CARE | [facility] | [address] | | | TESTS | | | [...] (H) | 70 - 99 mg/dL | [facility] - | | | GLUCOSE, | [...] [facility] | [address] | [place], [place] | | | [facility] GE[facility] OF CARE | [facility] | [address] | | | TESTS | | | [...] [facility] | [address] | [place] [address] | | | SERVICES, CORE | PARK [...] | | | LABORATORY | | | TUNISIAN | | | SERVICES, | | | [...] | + + + + + | [facility] | [address] | [place] [address] | | | NATALEE WORTHINGTON | VILMA [...] (H) | 70 - 99 mg/dL | [facility] - | | | GLUCOSE, | [...] + + + | [facility] | [address] | [place], [place] | | | [facility] | [address] | [address] | | | TESTS | | | [...] | | | LABORATORY | | | TUNISIAN | | | SERVICES, | | | [...] | + + + + + | [facility] | [address] | [place] [address] | | | SERVICES, CORE | VILMA [...] 87 | 70 - 99 mg/dL | [facility] - | | | GLUCOSE, | | [...] [facility] | [address] | [place], [place] | | | GLORIA GENAO OF CARE | [address] | [address] | | | TESTS | | | [...] + + + | ANA LILIA-HALIMA | 439 | ms | [facility] [...] DEPT OF | [address] | [place], [place] | | | CARDIOLOGY | [address] | [address] | | + + + + + [...] [facility] | [address] | [place], [place] | | | [facility] | [address] | [address] | | | TESTS | | | [...] + + + + | LAUREN | 458 | ms | [facility] [...] DEPT OF | [address] | [place], [place] | | | CARDIOLOGY | [address] | [address] | | + + + + + [...] | + + + + + | [facility] | [address] | [place] [address] | | | SERVICES, CORE | VILMA [...] - | | | | | | [place] | | + + + + + + + + | Specimen | + + | Blood - Blood | | (substance) | + + + + + + + | Performing | Address | City/State/Zipcode | Phone Number | | Organization | | | | + + + + + | [facility] | [address] | [place] [address] | | | [place] | | | | + + + [...] | + + + + + | [facility] | [address] | [place] [address] | | | SERVICES, CORE | VILMA [...] [facility] | [address] | [place] [address] | | | SERVICES, CORE | VILMA [...] [facility] | [address] | [place] [address] | | | NATALEE WORTHINGTON | VILMA [...] [facility] | [address] | [place] [address] | | | SERVICES, CORE | PARK [...] | + + + + + | [facility] | [address] | [place] [address] | | | SERVICES, CORE | VILMA [...] [facility] | [address] | [place] [address] | | | SERVICES, CORE | PARK [...] [facility] | [address] | [place] [address] | | | SERVICES, CORE | PARK [...] [facility] | [address] | [place] [address] | | | SERVICES, CORE | PARK [...] [facility] | [address] | [place] [address] | | | SERVICES, CORE | PARK [...] [facility] | [address] | [place] [address] | | | SERVICES, CORE | PARK [...] | | | LABORATORY | | | TUNISIAN | | | SERVICES, | | | [...] the MDRD equation recommended by the | [facility] | | National Kidney Disease Education [...] | + + + + + | [facility] | [address] [facility] | [place] [address] | | | ELIN, NATALEE | [address] | | | + + + + + PICC LINE (10/24/2017 4:01 PM PDT) + + + | Narrative | Performed At | + + + | Farhan Farrell RN 10/24/2017 4:05 PM PICC LINE Performed | | | by: FARHAN FARRELL Authorized by: CHAZ HERNANDEZ PICC/Sugar | | | Insertion Procedure Note Indications:TPN Procedure location: | | | Unit:13 Room: 4 Providers: Attending name: Attending physically [...] | | | correct patient, procedure, equipment, marketing support specialist and site/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 Catheter lot number: [id number] with a length of 55 | | [...] At | + + + | EXAM: SD CHEST 1 VIEW HISTORY: PICC placed-pt ready. [...] Interface - 10/24/2017 3:43 PM PDT EXAM: SD CHEST 1 | | VIEW HISTORY: PICC [...] + + | [facility] | [address] [facility] | [place], [place] | | | [facility] | [address] | [address] | | | TESTS | | | [...] | | Surgical Critical Care, PGY7 Pager: [phone] | | + + + CAPILLARY BLOOD [...] [facility] | [address] | [place], [place] | | | [facility] | [address] | [address] | | | TESTS | | | [...] [facility] | [address] | [place], [place] | | | [facility] | [address] | [address] | | | TESTS | | | [...] | | | LABORATORY | | | TUNISIAN | | | SERVICES, | | | [...] | + + + + + | [facility] | [address] [facility] | [place] [address] | | | NATALEE WORTHINGTON | PARK [...] + + | [facility] | [address] | [place] [address] | | | SERVICES, CORE | PARK [...] [facility] | [address] | [place], [place] | | | [facility] | [address] | [address] | | | TESTS | | | [...] ranges for Lymphocyte % in effect October 10, | [facility] | | 2018. New reference [...] | + + + + + | [facility] | [address] [facility] | [place] [address] | | | SERVICES, CORE | VILMA [...] | | | LABORATORY | | | TUNISIAN | | | SERVICES, | | | [...] | + + + + + | [facility] | [address] | [place] [address] | | | SERVICES, CORE | VILMA [...] + + + | ANA LILIA-HALIMA | 452 | ms | [facility] [...] DEPT OF | [address] | [place], [place] | | | CARDIOLOGY | [address] | [address] | | + + + + + IR GASTROSTOMY TUBE EXCHANGE (10/22/2017 2:42 PM PDT) + + | Specimen | + + | | + + + + + | Narrative | Performed At | + + + | Procedure: Gastrostomy tube exchange Primary attending | [facility] | | chief safety officer: Shade Nix M.D. Preoperative diagnosis: | RADIOLOGY VOICE | | Malfunctioning Gastrostomy tube Postoperative diagnosis: Same | RECOGNITION | | Operations: Operation 1. Removal of existing Gastrostomy tube | | | over a guide wire Operation 2. Placement of 24 Egyptian GABRIEL | | | gastrostomy over guide [...] a stiff glide wire the new 24 Egyptian gastrostomy tube was | | | inserted. [...] Procedure: | | Gastrostomy tube exchangePrimary attending chief safety officer: Shade Nix, | | BrynPreoperative diagnosis: Malfunctioning Gastrostomy tubePostoperative diagnosis: | | SameOperations:Operation 1. Removal of existing Gastrostomy tube over a guide | | wireOperation 2. Placement of 24 Egyptian GABRIEL gastrostomy over guide wireNo sedation was [...] glide wire the | | new 24 Egyptian gastrostomy tube was inserted. The position of [...] stiff g lide wire the new 24 Egyptian | |gastrostomy tube was inserted. The position [...] gastrostomy tube although the disk of t frankie old gastrostomy tube was positioned at 8 [...] + + | Performing | Address | City/State/[facility] | Phone Number | | Organization | [...] Note | + + | Service Account, [employer] In Interface - 10/22/2017 10:34 AM PDT [...] + + + + | QTC-HALIMA | 448 | ms | [facility] [...] DEPT OF | [address] | [place], [place] | | | CARDIOLOGY | [address] | [address] | | + + + + + [...] | + + + + + | [facility] | [address] [facility] | [place] [address] | | | SERVICES, NATALEE | [address] [...] | | | LABORATORY | | | TUNISIAN | | | SERVICES, | | | [...] | + + + + + | [facility] | [address] | [place] [address] | | | SERVICES, CORE | PARK [...] + + + + + + | QTC-SAURABHTT | 454 | ms | [facility] [...] + | [facility] | [address] [facility] | [place], [place] | | | CARDIOLOGY | [address] | [address] | | + + + + + [...] | | | LABORATORY | | | TUNISIAN | | | SERVICES, | | | [...] | + + + + + | [facility] | [address] | [place] [address] | | | SERVICES, CORE | PARK [...] | + + + + + | [facility] | [address] | [place] [address] | | | SERVICES, CORE | [address] | | | + + + + + 12 LEAD ECG (10/19/2017 12:23 PM PDT) + + + + + + | Component | Value | Ref Range | Performed | Pathologist | | | | | At | Signature | + + + + + + | VENTRICULAR | 53 | bpm | [facility] | | | RATE | [...] + + + + | QTC-BABRAYDONTT | 438 | ms | [facility] [...] + + | [facility] | [address] | [place], [place] | | | CARDIOLOGY | [address] | [address] | | + + + + + [...] | + + + + + | [facility] | [address] | [place] [address] | | | SERVICES, CORE | VILMA [...] | | | LABORATORY | | | TUNISIAN | | | SERVICES, | | | [...] | + + + + + | [facility] | [address] | [place] [address] | | | SERVICES, CORE | [address] | | | + + + + + 12 LEAD ECG (10/17/2017 9:34 AM PDT) + + + + + + | Component | Value | Ref Range | Performed | Pathologist | | | | | At | Signature | + + + + + + | VENTRICULAR | 58 | bpm | [facility] | | [...] + + + + | QTC-BAZETT | 459 | ms | [facility] [...] | + + + + + | [facility] | [address] | [place], [place] | | | CARDIOLOGY | [address] | [address] | | + + + + + [...] | | | LABORATORY | | | TUNISIAN | | | SERVICES, | | | [...] [facility] | [address] | [place] [address] | | | SERVICES, CORE | PARK [...] [facility] | [address] | [place] [address] | | | SERVICES, CORE | VILMA [...] + + + + | QTC-HALIMA | 476 | ms | [facility] [...] + | [facility] | [address] [facility] | [place], [place] | | | CARDIOLOGY | [address] | [address] | | + + + + + [...] | | | LABORATORY | | | TUNISIAN | | | SERVICES, | | | [...] [facility] | [address] | [place] [address] | | | SERVICES, CORE | PARK [...] | + + + + + | [facility] | [address] | [place] [address] | | | SERVICES, CORE | VILMA [...] Service Account, Kostas Casper In Interface - 10/15/2017 3:58 PM PDT [...] + + + + | LAUREN | 458 | ms | [facility] [...] OF | [address] | [place], [place] | | | CARDIOLOGY | [address] | [address] | | + + + + + [...] + + + | [facility] | [address] | [place], [place] | | | GLORIA GENAO OF CARE | [address] | [address] | | | TESTS | | | [...] [facility] | [address] | [place] [address] | | | NATALEE WORTHINGTON | [address] [...] - [facility] | [address] | [place], [place] | | | [facility] | [address] | [address] | | | TESTS | | | [...] DEPT OF | [address] | [place], [place] | | | CARDIOLOGY | [address] | [address] | | + + + + + [...] | + + + + + | [facility] | [address] | [place] [address] | | | NATALEE WORTHINGTON | [address] [...] | | | LABORATORY | | | TUNISIAN | | | SERVICES, | | | [...] | + + + + + | [facility] | [address] [facility] | [place] [address] | | | NATALEE WORTHINGTON | [address] [...] | + + + + + | [facility] | [address] | [place] [address] | | | SERVICES, NATALEE | PARK [...] [facility] | [address] | [place], [place] | | | [facility] | [address] | [address] | | | TESTS | | | [...] - [facility] | [address] | [place], [place] | | | [facility] | [address] | [address] | | | TESTS | | | [...] | + + + + + | [facility] | [address] | [place] [address] | | | NATALEE WORTHINGTON | [address] [...] | | | LABORATORY | | | TUNISIAN | | | SERVICES, | | | [...] | + + + + + | [facility] | [address] | [place] [address] | | | SERVICES, CORE | [address] | | | + + + + + OPERATION RECORD (10/12/2017 8:50 PM PDT) + + | Procedure Note | + + | Pilar Cotto MD - 10/12/2017 8:50 PM PDT Date of Service: 10/12/2017 | | Attending Surgeon: Chaz Hernandez MD Leader Tier(s): Randell Dixon M.D., | | fellow. George [...] saline. We then | | placed a 19-Egyptian drain deep into the abscess cavity, tracking [...] case. Pilar Cotto, | | MARIA TERESA Oleary/FELYD: 10/12/2017 19:50:06DT: 10/12/2017 20:50:54Job #: | | [id number] | + + X-RAY PORTABLE CHEST 1 VIEW (10/12/2017 7:50 PM PDT) + + | Specimen | + + | | + + + + + | Narrative | Performed At | + + + | EXAM: SD CHEST 1 VIEW HISTORY: Evaluate endotracheal tube [...] Service Account, Radiant [employer] In Interface - 10/13/2017 9:04 AM PDT EXAM: SD CHEST 1 | | VIEW HISTORY: Evaluate [...] MD 10/13/2017 9:03 AM Preliminary: Gurpreet | Prabhakar Dunne MD Dictation initiated: Gurpreet Dunne MD [...] | | + +---------+ + + | [facility] | | | | | VOICE [...] [facility] | [address] | [place], [place] | | | [facility] | [address] | [address] | | | TESTS | | | [...] Service Account, Radiant Res In Interface - 10/12/2017 5:05 PM [...] | + + + + + | [facility] | [address] | [place] [address] | | | SERVICES, CORE | PARK [...] | | | LABORATORY | | | TUNISIAN | | | SERVICES, | | | [...] the MDRD equation recommended by the | [facility] | | National Kidney Disease Education [...] [facility] | [address] | [place] [address] | | | SERVICES, CORE | PARK [...] 10/12, thanks! | LABORATORY | | | SERVICES, CORE | + + + + + + + + | Performing | Address | City/State/Zipcode | Phone Number | | Organization | | | | + + + + + | [facility] | [address] | [place] [address] | | | ELIN, NATALEE | [place] [...] + | [facility] | [address] | [place], [place] | | | CARDIOLOGY | [address] | [phone] | | + + + + + [...] DEPT OF | [address] | [place], [place] | | | CARDIOLOGY | [facility] | [phone] | | + + + + + [...] [facility] | [address] | [place] [address] | | | SERVICES, CORE | PARK [...] [facility] | [address] | [place] [address] | | | SERVICES, CORE | PARK [...] | | | LABORATORY | | | TUNISIAN | | | SERVICES, | | | [...] the MDRD equation recommended by the | [facility] | | National Kidney Disease Education [...] | + + + + + | [facility] | [address] | [place] [address] | | | NATALEE WORTHINGTON | [address] | | | + + + + + PROCEDURE NOTE (10/10/2017 10:00 PM PDT) + + + | Narrative | Performed At | + + + | Darius Link MD 10/12/2017 11:11 AM OPERATIVE REPORT | | | DATE OF OPERATION: 10/10/2017 ATTENDING SURGEON: 1. Dr. Hernandez | | | CIGARETTE MAKING MACHINE CATCHER: 1. Darius Link MD INDICATIONS: Dysphagia | | | and need for buttermaker continuous churn nutrition access PREOPERATIVE DIAGNOSIS: | | | 1.Dysphagia and need for fci nutrition access | | | POSTOPERATIVE DIAGNOSIS: [...] OPERATIVE NOTE Procedure Date: 10/10/2017 Author: Darius | | | MD Nikolay Attending Physician: Dr. Hernandez Assistants: Darius | | | Nikolay At (time), prior to the beginning of [...] Magdiel Stock MD Assistants: | | | Antwon Jackson MD Prior to the beginning of [...] nylons. Dictation to | | | [place] [id number] Chief Resident | | | Neurosurgery | [...] | + + + + + | [facility] | [address] [facility] [facility] | [place] [address] | | | SERVICES, CORE | [place] [...] | | | LABORATORY | | | TUNISIAN | | | SERVICES, | | | [...] + | [facility] | [address] | [place] [address] | | | SERVICES, CORE | PARK [...] | + + + + + | [facility] | [address] | [place] [address] | | | SERVICES, [facility] | [address] | | | + + + + + OPERATION RECORD (10/10/2017 12:40 PM PDT) + + | Procedure Note | + + | Magdiel Stock MD - 10/10/2017 12:40 PM PDT Date of Service: 10/10/2017 Attending | | Surgeon: Magdiel Stock MD Leader Tier(s): Cecilia Jackson, | | . Preoperative Diagnoses: [...] This is a 67-year-old male. Please see [facility] for full details. He | | [...] of purulent film, which was removed with Vy 1. We also used a | | [...] | the note for this encounter.Sonal Nunez [facility] [id number] [facility] | | [place] [id number] Orina, MDFAH/MODLDD: | | 10/10/2017 11:52:15DT: 10/10/2017 12:40:41Job #: [id number] | | | | | |I was present for the critical portions of the procedure as described in the note for this encounter. | | | |Magdiel Stock MD | | | |Magdiel Stock MD | |[address] | |[address] [facility] | |[facility] | |[place] [address] | |[phone] | | | | | |Magdiel Stock MD | |FAH/MODL | | | | | | /[id number] | + + X-RAY ABDOMEN 1 VIEW [...] + | [facility] - | [address] | [place] [address] | | | [place] | | | [...] + | [facility] | [address] | [place] [address] | | | [place] | | | | + + + [...] Gram Stain: No squamous epithelial cells | [facility] | | Many polymorphonuclear cells No organisms seen | | + + + + + + + + | Performing | Address | City/State/Zipcode | Phone Number | | Organization | | | | + + + + + | [facility] | [address] | [place] [address] | | | [facility] | | | | + + + [...] detected | [facility] - | | | [place] | + + + + + + + + | Performing | Address | City/State/Zipcode | Phone Number | | Organization | | | | + + + + + | [facility] | [address] | [place] [address] | | | [place] | | | [...] + | [facility] | [address] | [place] [address] | | | [place] | | | [...] squamous epithelial cells | [place] | | Many polymorphonuclear cells No organisms seen | | + + + + + + + + | Performing | Address | City/State/Zipcode | Phone Number | | Organization | | | | + + + + + | [facility] | [address] | [place] [address] | | | [place] | | | | + + + [...] + | [facility] | [address] | [place] [address] | | | [place] | | | [...] squamous epithelial cells | [place] | | Few polymorphonuclear cells No organisms seen | | + + + + + + + + | Performing | Address | City/State/Zipcode | Phone Number | | Organization | | | | + + + + + | [facility] - | [address] | [place] [address] | | | [facility] | | | | + [...] No squamous epithelial cells No polymorphonuclear | [facility] - | | cells No organisms seen | [place] | + + + + + + + + | Performing | Address | City/State/Zipcode | Phone Number | | Organization | | | | + + + + + | [facility] | [address] | [place] [address] | | | [facility] | | | | + [...] + | [facility] | [address] | [place] [address] | | | [place] | | | [...] Gram Stain: No squamous epithelial cells | [facility] | | Moderate polymorphonuclear cells No organisms seen | | + + + + + + + + | Performing | Address | City/State/Zipcode | Phone Number | | Organization | | | | + + + + + | [facility] | [address] | [place] [address] | | | [place] | | | [...] detected | [facility] - | | | [place] | + + + + + + + + | Performing | Address | City/State/Zipcode | Phone Number | | Organization | | | | + + + + + | [facility] | [address] | [place] [address] | | | [place] | | | [...] + | [facility] | [address] | [place] [address] | | | [place] | | | | + + + [...] + | [facility] | [address] | [place] [address] | | | [facility] | | | | + [...] + | [facility] | [address] | [place] [address] | | | [facility] | | | | + [...] + | [facility] | [address] | [place] [address] | | | [place] | | | [...] + | [facility] | [address] | [place] [address] | | | [facility] | | | | + [...] + | [facility] | [address] | [place] [address] | | | [place] | | | [...] Preliminary: Shun Carpio MD Dictation initiated: Shun | | | MD Balaji 10/10/2017 3:05 AM [...] [facility] | [address] | [place] [address] | | | SERVICES, CORE | PARK [...] | + + + + + | [facility] | [address] | [place] [address] | | | SERVICES, CORE | PARK [...] 2.6 mg/dL | [facility] | | | [facility] | | | [...] [facility] | [address] | [place] [address] | | | SERVICES, CORE | PARK [...] | | | LABORATORY | | | TUNISIAN | | | SERVICES, | | | [...] | + + + + + | [facility] | [address] | [place] [address] | | | ELIN, NATALEE | PARK [...] DEPT OF | [address] | [place], [place] | | | CARDIOLOGY | [address] | [address] | | + + + + + [...] + + + + | PRODUCT | [id number] | | [facility] | | | UNIT [...] + + + + | EXPIRATION | [id number] | | [facility] | | | DATE [...] + + + + | BLOOD | [id number] | | [facility] | | | PRODUCT [...] | + + + + + | [facility] | [address] | [place] [address] | | | SERVICES, | [address] [...] + + + + | PRODUCT | [id number] | | [facility] | | | UNIT [...] + + + + | EXPIRATION | [id number] | | [facility] | | | DATE [...] + + + + | BLOOD | [id number] | | [facility] | | | PRODUCT [...] | + + + + + | [facility] | [address] | [place] [address] | | | SERVICES, | [address] [...] [facility] | [address] | [place] [address] | | | SERVICES, | [address] [...] [facility] | [address] | [place] [address] | | | SERVICES, | [address] [...] [facility] | [address] | [place] [address] | | | SERVICES, | [address] [...] | + + + + + | [facility] | [address] | [place] [address] | | | SERVICES, CORE | PARK [...] + + + | ANA LILIA-HALIMA | 457 | ms | [facility] DEPT [...] GEET OF | [address] | [place], [place] | | | CARDIOLOGY | [address] | [address] | | + + + + + [...] Note | + + | Service Account, Zakada Res In Interface - 10/08/2017 10:47 AM [...] [facility] | [address] | [place], [place] | | | GLORIA GENAO OF [facility] | [address] | [address] | | | TESTS | | | [...] | + + + + + | [facility] | [address] | [place] [address] | | | SERVICES, CORE | [address] | | | + + + + + MAGNESIUM, PLASMA (10/08/2017 6:00 AM PDT) + +-------+ + + + | Component | Value | Ref Range | Performed | Pathologist | | | | | At | Signature | + +-------+ + + + | MAGNESIUM,P | 2.2 | 1.6 - 2.6 mg/dL | [facility] | | | [facility] | | | [...] [facility] | [address] | [place] [address] | | | SERVICES, NATALEE | VILMA [...] | | | LABORATORY | | | TUNISIAN | | | SERVICES, | | | [...] | + + + + + | [facility] | [address] | [place] [address] | | | SERVICES, NATALEE | VILMA [...] [facility] | [address] | [place], [place] | | | [facility]IA GENAO OF CARE | [facility] | [address] | | | TESTS | | | [...] [facility] | [address] | [place], [place] | | | GLORIA GENAO OF [facility] | [facility] | [address] | | | TESTS | | | [...] | | | POC | | | GLOIRA GENAO | | | | | | [...] [facility] | [address] | [place], [place] | | | [facility] | [address] | [address] | | | TESTS | | | [...] [facility] | [address] | [place], [place] | | | [facility] GE[facility] OF CARE | [facility] | [address] | | | TESTS | | | [...] + + + + | [facility] | [address] | [place], [place] | | | GL[facility]IA GENAO OF [facility] | [address] | [address] | | | TESTS | | | [...] | + + + + + | [facility] | [address] | [place] [address] | | | NATALEE WORTHINGTON | VILMA [...] | + + + + + | [facility] | [address] | [place] [address] | | | SERVICES, CORE | VILMA [...] | | | LABORATORY | | | TUNISIAN | | | SERVICES, | | | [...] | + + + + + | [facility] | [address] | [place] [address] | | | SERVICES, CORE | VILMA [...] [facility] | [address] | [place], [place] | | | [facility] CARE | [address] | [address] | | | TESTS | | | [...] [facility] | [address] | [place], [place] | | | [facility] | [address] | [address] | | | TESTS | | | [...] + + + + | QTC-HALIMA | 427 | ms | [facility] DE[facility] [...] DEPT OF | [address] | [place], [place] | | | CARDIOLOGY | [address] | [address] | | + + + + + [...] [facility] | [address] | [place], [place] | | | [facility] GENAO OF CARE | [facility] | [address] | | | TESTS | | | [...] | + + + + + | [facility] | [address] | [place] [address] | | | NATALEE WORTHINGTON | VILMA [...] + + | Reference range change effective 8/15/17. | [facility] | | | LABORATORY | | | SERVICES, NATALEE | + + + + + + + + | Performing | Address | City/State/Zipcode | Phone Number | | Organization | | | | + + + + + | [facility] | [address] [facility] | [place] [address] | | | SERVICES, CORE | PARK [...] | | | LABORATORY | | | TUNISIAN | | | SERVICES, | | | [...] | + + + + + | [facility] | [address] | [place] [address] | | | SERVICES, CORE | PARK [...] (H) | 70 - 99 mg/dL | [facility] - | | | GLUCOSE, | | [...] [facility] | [address] | [place], [place] | | | [facility] GENAO OF [facility] | [facility] | [address] | | | TESTS | | | [...] [facility] | [address] | [place], [place] | | | [facility] GE[facility] OF CARE | [facility] | [address] | | | TESTS | | | [...] (H) | 70 - 99 mg/dL | [facility] - | | | GLUCOSE, | [...] [facility] | [address] | [place], [place] | | | [facility] | [address] | [address] | | | TESTS | | | [...] [facility] | [address] | [place], [place] | | | GLORIA GENAO OF [facility] | [facility] | [address] | | | TESTS | | | [...] + + + + | QTC-BAZETT | 441 | ms | [facility] DE[facility] [...] DEPT OF | [address] | [place], [place] | | | CARDIOLOGY | [address] | [address] | | + + + + + [...] | + + + + + | [facility] | [address] | [place] [address] | | | SERVICES, CORE | PARK [...] [facility] | [address] | [place] [address] | | | SERVICES, CORE | VILMA [...] | | | LABORATORY | | | TUNISIAN | | | SERVICES, | | | [...] the MDRD equation recommended by the | [facility] | | National Kidney Disease Education [...] | + + + + + | [facility] | [address] | [place] [address] | | | SERVICES, CORE | VILMA [...] (H) | 70 - 99 mg/dL | [facility] - | | | GLUCOSE, | [...] [facility] | [address] | [place], [place] | | | [facility] GE[facility]O OF [facility] | [facility] | [address] | | | TESTS | | | [...] [facility] | [address] | [place], [place] | | | GLOIRA GENAO OF [facility] | [address] | [address] | | | TESTS | | | [...] | [facility] | [address] | [place], [place] | | | [facility] | [facility] | [address] | | | TESTS | | | [...] (H) | 70 - 99 mg/dL | [facility] - | | | GLUCOSE, | [...] [facility] | [address] | [place], [place] | | | [facility] CARE | [facility] | [address] | | | TESTS | | | [...] [facility] | [address] | [place], [place] | | | GLORIA GENAO OF [facility] | [address] | [address] | | | TESTS | | | [...] | + + + + + | [facility] | [address] | [place] [address] | | | SERVICES, CORE | [address] | | | + + + + + MAGNESIUM, PLASMA (10/04/2017 5:28 AM PDT) + +-------+ + + + | Component | Value | Ref Range | Performed | Pathologist | | | | | At | Signature | + +-------+ + + + | MAGNESIUM,P | 2.0 | 1.6 - 2.6 mg/dL | [facility] | | | [facility] | | | [...] [facility] | [address] | [place] [address] | | | SERVICES, NATALEE | VILMA [...] | | | LABORATORY | | | TUNISIAN | | | SERVICES, | | | [...] | + + + + + | [facility] | [address] [facility] | [place] [address] | | | NATALEE WORTHINGTON | VILMA [...] [facility] | [address] | [place], [place] | | | [facility] GENAO OF CARE | [facility] | [address] | | | TESTS | | | [...] (H) | 70 - 99 mg/dL | [facility] - | | | GLUCOSE, | [...] + + | [facility] | [address] | [place], [place] | | | GL[facility] GENAO OF [facility] | [address] | [address] | | | TESTS | | | [...] | + + + + + | [facility] | [address] | [place] [address] | | | SERVICES, NATALEE | VILMA [...] by | | | | | | [employer],[address] | | | | | | Rogelio Pickard, [facility],[place] | | | | | | [address] | | | | | | [phone].[employer]. | | | | | | Gui [...] [facility] | [address] | [place], [place] | | | [facility] | | [address] | | + + + + + [...] [facility] | [address] | [place] [address] | | | SERVICES, CORE | PARK [...] utilizing a similar TSH assay, and | SERVICES, CORE | | should be interpreted with caution. | | + + + + + + + + | Performing | Address | City/State/Zipcode | Phone Number | | Organization | | | | + + + + + | [facility] | [address] | [place] [address] | | | SERVICES, CORE | PARK [...] modified from | [facility] | | original anesthesia associate's approved specifications. The performance | LABORATORY | | of the PAPERBACK MACHINE OPERATOR HIV Combo test, with or without confirmation, was not | SERVICES, | | tested in pediatric patients less than 2 years of age. NIH | SPECIAL IMM + | | guidelines [...] | + + + + + | [facility] | [address] | [place] [address] | | | SERVICES, SPECIAL | [address] | | | | [...] (H) | 70 - 99 mg/dL | [facility] - | | | GLUCOSE, | [...] [facility] | [address] | [place], [place] | | | GLORIA GENAO OF [facility] | [facility] | [address] | | | TESTS | | | | + + + + + CAPILLARY BLOOD GLUCOSE (NO CHG) POC (10/03/2017 6:13 AM PDT) + +---------+ [...] + | [facility] | [address] | [place], [place] | | | [facility] | [facility] | [address] | | | TESTS | | | [...] | + + + + + | [facility] | [address] [facility] | [place] [address] | | | SERVICES, CORE | PARK [...] [facility] | [address] | [place] [address] | | | SERVICES, CORE | PARK [...] | | | LABORATORY | | | TUNISIAN | | | SERVICES, | | | [...] the MDRD equation recommended by the | [facility] | | National Kidney Disease Education [...] | + + + + + | [facility] | [address] [facility] | [place] [address] | | | SERVICES, CORE | PARK [...] + + | [facility] | [address] | [place], [place] | | | GLORIA GENAO OF [facility] | [address] | [address] | | | TESTS | | | [...] [facility] | [address] | [place], [place] | | | [facility] | [address] | [address] | | | TESTS | | | [...] DEPT OF | [address] | [place], [place] | | | CARDIOLOGY | [address] | [address] | | + + + + + [...] At | + + + | EXAM: SD CHEST 1 VIEW HISTORY: Evaluate PICC placement [...] Note | + + | Service Account, Zakada Res In Interface - 10/02/2017 2:07 PM PDT EXAM: SD CHEST 1 | | VIEW HISTORY: Evaluate [...] the report as now presented. Final signature: Mracelo Morley MD 10/02/2017 | | 2:06 PM [...] |Preliminary: Marcelo Morley MD | |Dictation initiated: Mareclo oMrley MD 10/02/2017 2:04 PM | + + [...] [facility] | [address] | [place], [place] | | | GL[facility]IA GENAO OF CARE | [address] | [address] | | | TESTS | | | | + + + + + X-RAY PORTABLE CHEST 1 VIEW (10/02/2017 8:56 AM PDT) + + | Specimen | + + | | + + + + + | Narrative | Performed At | + + + | EXAM: SD CHEST 1 VIEW HISTORY: new leukocytosis, eval [...] Interface - 10/02/2017 10:27 AM PDT EXAM: SD CHEST 1 | | VIEW HISTORY: new [...] [facility] | [address] | [place], [place] | | | [facility] | [address] | [address] | | | TESTS | | | [...] [facility] | [address] | [place] [address] | | | NATALEE WORTHINGTON | VILMA [...] | | | LABORATORY | | | SERVICESNATALEE | + + + + + + + + | Performing | Address | City/State/Zipcode | Phone Number | | Organization | | | | + + + + + | [facility] | [address] [facility] | [place] [address] | | | SERVICES, CORE | PARK [...] | | | LABORATORY | | | TUNISIAN | | | SERVICES, | | | [...] | + + + + + | [facility] | [address] | [place] [address] | | | SERVICES, CORE | PARK [...] [facility] | [address] | [place], [place] | | | GLORIA GENAO OF [facility] | [facility] | [address] | | | TESTS | | | [...] | + + + + + | [facility] | [address] | [place], [place] | | | [facility] | [address] | [address] | | | TESTS | | | [...] Service Account, Kostas Res In Interface - 10/01/2017 2:15 PM [...] Preliminary: Edelmira Parsons MD Dictation initiated: Edelmira Dumont | Prabhakar Parsons MD 10/01/2017 2:08 PM | | [...] [facility] | [address] | [place], [place] | | | JOHN GENAO | [address] | [address] | | | TESTS | | | [...] Note | + + | Service Account, [employer] In Interface - 10/01/2017 11:34 AM PDT [...] [facility] | [address] | [place], [place] | | | [facility] | [address] | [address] | | | TESTS | | | [...] [facility] | [address] | [place] [address] | | | NATALEE WORTHINGTON | PARK [...] | + + + + + | [facility] | [address] | [place] [address] | | | NATALEE WORTHINGTON | PARK [...] | | | LABORATORY | | | TUNISIAN | | | SERVICES, | | | [...] | + + + + + | [facility] | [address] | [place] [address] | | | SERVICES, CORE | [address] | | | + + + + + CAPILLARY BLOOD GLUCOSE (NO CHG), CITLALY (09/30/2017 11:21 PM PDT) + +---------+ + [...] [facility] | [address] | [place], [place] | | | [facility]IA GENAO OF CARE | [address] | [address] | | | TESTS | | | [...] + + + + + | [facility] | [address] | [place], [place] | | | [facility] | [address] | [address] | | | TESTS | | | [...] + + + + | QTC-BAZ[facility]T | 481 | ms | [facility] [...] DEPT OF | [address] | [place], [place] | | | CARDIOLOGY | [address] | [address] | | + + + + + [...] BASE: | | Postsurgical changes from right lmia-cranioplasty Mastoids and middle ears are | | [...] [facility] | [address] | [place], [place] | | | [facility] | [address] | [address] | | | TESTS | | | [...] [facility] | [address] | [place], [place] | | | [facility] | [facility] | [address] | | | TESTS | | | [...] [facility] | [address] | [place] [address] | | | SERVICES, CORE | PARK [...] [facility] | [address] | [place] [address] | | | SERVICES, CORE | [address]ARK [...] | | | LABORATORY | | | TUNISIAN | | | SERVICES, | | | [...] the MDRD equation recommended by the | [facility] | | National Kidney Disease Education [...] | + + + + + | [facility] | [address] [facility] | [place] [address] | | | NATALEE WORTHINGTON | VILMA [...] | [facility] | [address] | [place], [place] | | | [facility] | [address] | [address] | | | TESTS | | | [...] + + + | [facility] | [address] | [place], [place] | | | [facility] | [address] | [address] | | | TESTS | | | [...] [facility] | [address] | [place], [place] | | | [facility] | [address] | [address] | | | TESTS | | | [...] | | OF | | | | 09-30-2017 08:36:54 | | CARDIOLOGY | | + [...] DEPT OF | [address] | [place], [place] | | | CARDIOLOGY | [address] | [address] | | + + + + + [...] [facility] | [address] | [place], [place] | | | GLORIA GENAO OF [facility] | [facility] | [address] | | | TESTS | | | [...] | + + + + + | [facility] | [address] [facility] | [place] [address] | | | SERVICES, CORE | [address]IL[address] [...] | | | LABORATORY | | | TUNISIAN | | | SERVICES, | | | [...] [facility] | [address] | [place] [address] | | | SERVICES, CORE | [address]ARK [...] | + + + + + | [facility] | [address] | [place] [address] | | | NATALEE WORTHINGTON | PARK [...] [facility] | [id number] | [place], [place] | | | GLORIA GENAO OF [facility] | [facility] | [address] | | | TESTS | | | [...] [facility] | [address] | [place], [place] | | | GLORIA GENAO OF CARE | [address] | [address] | | | TESTS | | | [...] PICKETT | [address] | [place], [place] | | | GLORIA GENAO OF GM | [facility] | [address] | | | TESTS | | | [...] DEPT OF | [address] | [place], [place] | | | CARDIOLOGY | [address] | [address] | | + + + + + [...] + + + | [facility]LE[facility] | [address] | [place], [place] | | | GLORIA GENAO OF [facility] | [address] | [address] | | | TESTS | | | [...] [facility] | [address] | [place] [address] | | | NATALEE WORTHINGTON | PARK [...] | + + + + + | [facility] | [address] | [place] [address] | | | ELIN, NATALEE | VILMA [...] | | | LABORATORY | | | TUNISIAN | | | SERVICES, | | | [...] | + + + + + | [facility] | [address] | [place] [address] | | | SERVICES, CORE | PARK [...] [facility] | [address] | [place], [place] | | | GLORIA GENAO OF GM | [address] | [address] | | | TESTS | | | [...] + + | SELENA PICKETT | [address] [facility] [address] | [place], [place] | | | [facility] | [address] | [address] | | | TESTS | | | | + + + + + MODIFIED BARIUM SWALLOWING (09/27/2017 1:38 PM PDT) + + | Specimen | + + | | + + + + + | Narrative | Performed At | + + + | EXAM: Modified Barium Swallow HISTORY: Traumatic brain injury. | [facility] | | Silent aspiration with clinical improvement. [...] poorly cleared with dry swallows. Please see [facility] report for full details | | [...] [facility] | [address] | [place], [place] | | | [facility] | [address] | [address] | | | TESTS | | | [...] [facility] | [address] | [place], [place] | | | [facility] | [address] | [address] | | | TESTS | | | [...] | + + + + + | [facility] | [address] | [place] [address] | | | SERVICES, NATALEE | VILMA [...] | + + + + + | [facility] | [address] | [place] [address] | | | SERVICES, CORE | VILMA [...] | | | LABORATORY | | | TUNISIAN | | | SERVICES, | | | [...] | + + + + + | [facility] | [address] | [place] [address] | | | SERVICES, CORE | VILMA [...] (H) | 70 - 99 mg/dL | [facility] - | | | GLUCOSE, | [...] PICKETT | [address] | [place], [place] | | | [facility] CARE | [address] | [address] | | | TESTS | | | [...] [facility]QU[facility] | [address] | [place], [place] | | | [facility] CARE | [address] | [address] | | | TESTS | | | [...] + + | [facility] | 466 | ms | [facility] [...] DEPT OF | [address] | [place], [place] | | | CARDIOLOGY | [address] | [address] | | + + + + + CAPILLARY BLOOD GLUCOSE (NO CHG), POC (09/26/2017 12:37 PM PDT) + +-------+ + + + | Component | Value | Ref Range | Performed | Pathologist | | | | | At | Signature | + +-------+ + + + | BLOOD | 88 | 70 - 99 mg/dL | [facility] [...] [facility] | [address] | [place], [place] | | | [facility] POINT OF CARE | [address] | [address] | | | TESTS | | | [...] [facility] | [address] | [place], [place] | | | HILL, POINT OF CARE | [address] | [address] | | | TESTS | | | [...] [facility] | [address] | [place], [place] | | | GLORIA GENAO OF [facility] | [address] | [address] | | | TESTS | | | [...] | + + + + + | [facility] | [address] | [place] [address] | | | NATALEE WORTHINGTON | VILMA [...] | + + + + + | [facility] | [address] | [place] [address] | | | SERVICES, CORE | VILMA [...] | | | LABORATORY | | | TUNISIAN | | | SERVICES, | | | [...] | + + + + + | [facility] | [address] | [place] [address] | | | SERVICES, CORE | VILMA [...] (H) | 70 - 99 mg/dL | [facility] - | | | GLUCOSE, | [...] + + + | [facility] | [address] | [place], [place] | | | [place] POINT OF CARE | [address] | [address] | | | TESTS | | | [...] 09/25/2017 12:31 PM Preliminary: | | | Dae Izaguirre MD 09/25/2017 12:11 PM | [...] | + + + + + | [facility] | [address] [facility] | [place] [address] | | | ELIN, NATALEE | VILMA [...] | + + + + + | [facility] | [address] [facility] | [place] [address] | | | SERVICES, CORE | VILMA [...] | | | LABORATORY | | | TUNISIAN | | | SERVICES, | | | [...] | + + + + + | [facility] | [address] | [place] [address] | | | SERVICES, CORE | [address] | | | + + + + + 12 LEAD ECG (09/24/2017 9:28 PM PDT) + + + + + + | Component | Value | Ref Range | Performed | Pathologist | | | | | At | Signature | + + + + + + | VENTRICULAR | 74 | bpm | [facility] | | | RATE | | [...] GEET OF | [address] | [place], [place] | | | CARDIOLOGY | [address] | [address] | | + + + + + [...] Service Account, Radiant Res In Interface - 09/24/2017 2:44 PM [...] Note | + + | Service Account, [employer] Res In Interface - 09/24/2017 4:09 PM PDT [...] [facility] | | | | | VAS US | | | | + +---------+ [...] | + + + + + | [facility] | [address] | [place] [address] | | | NATALEE WORTHINGTON | VILMA [...] | | | LABORATORY | | | TUNISIAN | | | SERVICES, | | | [...] | + + + + + | [facility] | [address] | [place] [address] | | | SERVICES, CORE | VILMA [...] | + + + + + | [facility] | [address] | [place] [address] | | | NATALEE WORTHINGTON | PARK [...] | + + + + + | [facility] | [address] | [place] [address] | | | SERVICES, CORE | [address] | | | + + + + + MAGNESIUM, PLASMA (09/23/2017 4:04 AM PDT) + +-------+ + + + | Component | Value | Ref Range | Performed | Pathologist | | | | | At | Signature | + +-------+ + + + | MAGNESIUM,P | 2.1 | 1.6 - 2.6 mg/dL | [facility] | | | L[facility]MA | | | [...] [facility] | [address] | [place] [address] | | | SERVICES, NATALEE | VILMA [...] | | | LABORATORY | | | TUNISIAN | | | SERVICES, | | | [...] | + + + + + | [facility] | [address] [facility] | [place] [address] | | | SERVICES, CORE | VILMA [...] RAPHAEL[facility] | [address] | [place], [place] | | | GLORIA GENAO OF [facility] | [facility] | [address] | | | TESTS | | | [...] (H) | 70 - 99 mg/dL | [facility] - | | | GLUCOSE, | [...] P[facility] | [address] | [place], [place] | | | [place] POINT OF CARE | [address] | [address] | | | TESTS | | | [...] Orta MD 09/22/2017 4:24 PM Preliminary: Cherri Gordno | | | MD Sam | | [...] [facility] | [address] | [place] [address] | | | NATALEE WORTHINGTON | VILMA [...] + + + | ANA LILIA-HALIMA | 445 | ms | [facility] [...] GEET OF | [address] | [place], [place] | | | CARDIOLOGY | [facility] | [address] | | + + + + + [...] | + + + + + | [facility] | [address] [facility] | [place] [address] | | | SERVICES, CORE | [address] [...] [facility] | [address] | [place] [address] | | | SERVICES, CORE | PARK [...] | | | LABORATORY | | | TUNISIAN | | | SERVICES, | | | [...] the MDRD equation recommended by the | [facility] | | National Kidney Disease Education [...] | + + + + + | [facility] | [address] | [place] [address] | | | SERVICES, CORE | PARK [...] + + | [facility] | [address] | [place], [place] | | | [place] [facility] OF [facility] | [address] | [address] | | | TESTS | | | [...] + + + + + | [facility] | [address] | [place] [address] | | | NATALEE WORTHINGTON | VILMA [...] | + + + + + | [facility] | [address] | [place] [address] | | | NATALEE WORTHINGTON | PARK [...] | | | LABORATORY | | | TUNISIAN | | | SERVICES, | | | [...] | + + + + + | [facility] | [address] | [place] [address] | | | SERVICES, CORE | VILMA [...] Account, Radiant Res In Interface - 09/20/2017 7:50 PM PDT EXAM: ABD LTD | | [...] | report as now presented. Final signature: Prabhakar Castro MD 09/20/2017 6:24 PM Preliminary: Mega Yeager MD | | + + + + + | Procedure Note | + + | Service Account, Zakada Res In Interface - 09/20/2017 6:25 PM [...] ABD LTD FEEDING TUBE EVAL INDICATION: confirm Dobbhoff | [facility] | | placement TECHNIQUE: Semi-upright [...] now presented. Final | | | signature: sEpinoza Sanchez MD 09/20/2017 5:16 PM Preliminary: Em Cleary | | | MD Darryn 09/20/2017 1:12 PM | | + + + + + | Procedure Note | + + | Service Account, Zakada Res In Interface - 09/20/2017 5:17 PM [...] + + + + | LAUREN | 444 | ms | [facility] [...] | [facility] | [address] | [place], [place] | | | CARDIOLOGY | [address] | [address] | | + + + + + [...] | + + + + + | [facility] | [address] | [place] [address] | | | SERVICES, CORE | VILMA [...] [facility] | [address] | [place] [address] | | | SERVICES, CORE | PARK [...] | | | LABORATORY | | | TUNISIAN | | | SERVICES, | | | [...] the MDRD equation recommended by the | [facility] | | National Kidney Disease Education [...] [facility] | [address] | [place] [address] | | | SERVICES, CORE | PARK [...] | + + + + + | [facility] | [address] | [place] [address] | | | SERVICES, CORE | PARK [...] [facility] | [address] | [place] [address] | | | SERVICES, CORE | PARK [...] | | | LABORATORY | | | TUNISIAN | | | SERVICES, | | | [...] [facility] | [address] | [place] [address] | | | SERVICES, CORE | PARK [...] | + + + + + | [facility] | [address] | [place] [address] | | | SERVICES, CORE | VILMA [...] + | [facility] | [address] | [place] [address] | | | SERVICES, CORE | PARK [...] | | | LABORATORY | | | TUNISIAN | | | SERVICES, | | | [...] | + + + + + | [facility] | [address] | [place] [address] | | | SERVICES, NATALEE | VILMA [...] Note | + + | Service Account, [employer] In Interface - 09/17/2017 11:53 AM PDT [...] [facility] | [address] | [place] [address] | | | NATALEE WORTHINGTON | VILMA [...] | + + + + + | [facility] | [address] [facility] | [place] [address] | | | SERVICES, NATALEE | PARK [...] | | | LABORATORY | | | TUNISIAN | | | SERVICES, | | | [...] | + + + + + | [facility] | [address] | [place] [address] | | | SERVICES, CORE | [address] | | | + + + + + X-RAY PORTABLE CHEST PICC LINE CHECK (09/16/2017 1:11 PM PDT) + + | Specimen | + + | | + + + + + | Narrative | Performed At | + + + | EXAM: SD CHEST PICC LINE CHECK HISTORY: PICC placement | [facility] | | COMPARISON: [...] Service Account, Kostas Casper In Interface - 09/16/2017 1:34 PM PDT EXAM: SD CHEST | | PICC LINE CHECK HISTORY: [...] At | + + + | EXAM: SD CHEST PICC LINE CHECK HISTORY: Evaluate PICC [...] | + + | Service Account, Kostas Folica In Interface - 09/16/2017 11:41 AM PDT EXAM: SD CHEST | | PICC LINE CHECK HISTORY: [...] | + + + + + | [facility] | [address] | [place] [address] | | | NATALEE WORTHINGTON | PARK [...] | + + + + + | [facility] | [address] | [place] [address] | | | SERVICES, CORE | VILMA [...] | | | LABORATORY | | | TUNISIAN | | | SERVICES, | | | [...] | + + + + + | [facility] | [address] | [place] [address] | | | SERVICES, CORE | [address] | | | + + + + + X-RAY PORTABLE CHEST 1 VIEW (09/15/2017 3:28 PM PDT) + + | Specimen | + + | | + + + + + | Narrative | Performed At | + + + | EXAM: SD CHEST 1 VIEW HISTORY: COMPARISON: None. 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 Catheter lot number: [id number] with a length of [phone] | | [...] Service Account, Kostas Res In Interface - 09/15/2017 2:13 PM [...] | + + + + + | [facility] | [address] [facility] | [place] [address] | | | NATALEE WORTHINGTON | VILMA [...] | + + + + + | [facility] | [address] | [place] [address] | | | SERVICES, CORE | VILMA [...] | | | LABORATORY | | | TUNISIAN | | | SERVICES, | | | [...] | + + + + + | [facility] | [address] | [place] [address] | | | SERVICES, CORE | [address] | | | + + + + + X-RAY SPINE CERVICAL 2 VIEWS (09/14/2017 4:51 PM PDT) + + | Specimen | + + | | + + + + + | Narrative | Performed At | + + + | EXAM: SPINE CERVICAL 2 VIEWS HISTORY: Cervical spine fractures | [facility] | | COMPARISON: 08/31/17 FINDINGS: The upper [...] [facility] | [address] | [place] [address] | | | NATALEE WORTHINGTON | VILMA [...] | + + + + + | [facility] | [address] [facility] | [place] [address] | | | SERVICES, NATALEE | [address] [...] | | | LABORATORY | | | TUNISIAN | | | SERVICES, | | | [...] | + + + + + | [facility] | [address] [facility] | [place] [address] | | | SERVICES, CORE | VIL[address] [...] + + + + + | [facility] | [address] | [place] [address] | | | NATALEE WORTHINGTON | VILMA [...] | + + + + + | [facility] | [address] | [place] [address] | | | NATALEE WORTHINGTON | PARK [...] | | | LABORATORY | | | TUNISIAN | | | SERVICES, | | | [...] | + + + + + | [facility] | [address] | [place] [address] | | | SERVICES, CORE | [address] | | | + + + + + X-RAY ABD LTD FEEDING TUBE EVAL (09/12/2017 6:50 AM PDT) + + | Specimen | + + | | + + + + + | Narrative | Performed At | + + + | EXAM: ABD LTD FEEDING TUBE EVAL HISTORY: Dobbhoff tube | [facility] | | placement. COMPARISON: [...] Account, Radiant Res In Interface - 09/12/2017 9:13 AM [...] | + + + + + | [facility] | [address] | [place] [address] | | | ELIN, NATALEE | PARK [...] [facility] | [address] | [place] [address] | | | SERVICES, CORE | PARK [...] | | | LABORATORY | | | TUNISIAN | | | SERVICES, | | | [...] the MDRD equation recommended by the | [facility] | | National Kidney Disease Education [...] | + + + + + | [facility] | [address] [facility] | [place] [address] | | | NATALEE WORTHINGTON | VILMA [...] Note | + + | Service Account, Zakada Res In Interface - 09/11/2017 6:22 PM [...] [facility] | [address] | [place] [address] | | | SERVICES, CORE | [address] | | | + + + + + MAGNESIUM, PLASMA (09/11/2017 7:12 AM PDT) + +---------+ + + + | Component | Value | Ref Range | Performed | Pathologist | | | | | At | Signature | + +---------+ + + + | MAGNESIUM,P | 2.7 (H) | 1.6 - 2.6 mg/dL | [facility] | | | [facility] | | [...] [facility] | [address] | [place] [address] | | | ELIN, NATALEE | VILMA [...] | | | LABORATORY | | | TUNISIAN | | | SERVICES, | | | [...] | + + + + + | [facility] | [address] | [place] [address] | | | SERVICES, CORE | VILMA [...] | + + + + + | [facility] | [address] | [place] [address] | | | SERVICES, CORE | [address] | | | + + + + + X-RAY ABD LTD FEEDING TUBE EVAL (09/10/2017 12:44 PM PDT) + + | Specimen | + + | | + + + + + | Narrative | Performed At | + + + | INDICATION: DHT placement TECHNIQUE: Upright portable view of | [facility] | | the upper abdomen. Comparison: 09/09/2017 [...] as now presented. Final signature: Edelmira Parsons | | | 09/10/2017 2:08 PM Created by: Edelmira Parsons MD | | + + + + + | Procedure Note | + + | Service Account, Zakada Res In Interface - 09/10/2017 2:08 PM [...] Note | + + | Service Account, Zakada Res In Interface - 09/10/2017 2:31 PM [...] | | + +---------+ + + | [facility] | | | | | VAS US | | | | + +---------+ + + X-RAY PORTABLE CHEST 1 VIEW (09/10/2017 7:16 AM PDT) + + | Specimen | + + | | + + + + + | Narrative | Performed At | + + + | STUDY: SD CHEST 1 VIEW 09/10/17 07:02:01 HISTORY: Possible [...] Note | + + | Service Account, Zakada Res In Interface - 09/10/2017 9:25 AM PDT STUDY: SD CHEST 1 | | VIEW 09/10/17 07:02:01 [...] [facility] | [address] | [place] [address] | | | SERVICES, CORE | VILMA [...] [facility] | [address] | [place] [address] | | | SERVICES, CORE | PARK [...] | + + + + + | [facility] | [address] | [place] [address] | | | SERVICES, CORE | VILMA [...] [facility] | [address] | [place] [address] | | | SERVICES, CORE | VILMA [...] | | | LABORATORY | | | TUNISIAN | | | SERVICES, | | | [...] [facility] | [address] | [place] [address] | | | SERVICES, CORE | [address] | | | + + + [...] [facility] | [address] | [place], [place] | | | CARDIOLOGY | [address] | [address] | | + + + + + [...] as now presented. Final signature: Edelmira Parsons | | | 09/10/2017 11:11 AM Created by: Edelmira Parsons MD | | + + + + + | Procedure Note | + + | Service Account, Zakada Res In Interface - 09/10/2017 11:11 AM PDT [...] [facility] | [address] | [place], [place] | | | [facility] POINT OF CARE | [facility] | [address] | | | TESTS | | | [...] [facility] | [address] | [place] [address] | | | ELIN, NATALEE | VILMA [...] [facility] | [address] | [place] [address] | | | SERVICES, CORE | PARK [...] | | | LABORATORY | | | TUNISIAN | | | SERVICES, | | | [...] the MDRD equation recommended by the | [facility] | | National Kidney Disease Education [...] | + + + + + | [facility] | [address] [facility] | [place] [address] | | | SERVICES, CORE | P[address] [...] [facility] | [address] | [place] [address] | | | SERVICES, [facility] | [address] | | | + [...] | | | LABORATORY | | | TUNISIAN | | | SERVICES, | | | [...] the MDRD equation recommended by the | [facility] | | National Kidney Disease Education [...] [facility] | [address] | [place] [address] | | | SERVICES, CORE | PARK [...] | + + + + + | [facility] | [address] | [place] [address] | | | SERVICES, CORE | [address] [...] + +---------+ + + + | VIRGENI D CMNT | No Hemo | | [...] [facility] | [address] | [place] [address] | | | SERVICES, CORE | PARK [...] + + + + | QTC-HALIMA | 473 | ms | [facility] [...] | + + + + + | [facility] | [address] | [place], [place] | | | CARDIOLOGY | [address] | [address] | | + + + + + X-RAY PORTABLE CHEST 1 VIEW (09/07/2017 6:12 AM PDT) + + | Specimen | + + | | + + + + + | Narrative | Performed At | + + + | EXAM: SD CHEST 1 VIEW HISTORY: Post extubation COMPARISON: [...] Interface - 09/07/2017 10:46 AM PDT EXAM: SD CHEST 1 | | VIEWHISTORY: Post extubationCOMPARISON: [...] [facility] | [address] | [place] [address] | | | NATALEE WORTHINGTON | VILMA [...] | | | LABORATORY | | | TUNISIAN | | | SERVICES, | | | [...] | + + + + + | [facility] | [address] | [place] [address] | | | SERVICES, NATALEE | VILMA [...] | + + + + + | [facility] | [address] | [place] [address] | | | SERVICES, CORE | [address] | | | + + + + + X-RAY ABD LTD FEEDING TUBE EVAL (09/06/2017 8:04 PM PDT) [...] Note | + + | Service Account, Zakada Res In Interface - 09/07/2017 10:46 AM [...] + + + + | QTC-BABRAYDONTT | 537 | ms | [facility] [...] | + + + + + | [facility] | [address] | [place], [place] | | | CARDIOLOGY | [address] | [address] | | + + + + + [...] | | | attempt. Midline lot number [id number]; there was positive blood | | | [...] | | | LABORATORY | | | TUNISIAN | | | SERVICES, | | | [...] [facility] | [address] | [place] [address] | | | SERVICES, CORE | [address] [...] 09/06, thanks! | LABORATORY | | | SERVICES, CORE | + + + + + + + + | Performing | Address | City/State/Zipcode | Phone Number | | Organization | | | | + + + + + | [facility] | [address] | [place] [address] | | | SERVICES, [facility] | [address] | | | + + + + + X-RAY PORTABLE CHEST 1 VIEW (09/05/2017 5:33 AM PDT) + + | Specimen | + + | | + + + + + | Narrative | Performed At | + + + | EXAM: SD CHEST 1 VIEW HISTORY: Evaluation after chest [...] Interface - 09/05/2017 10:16 AM PDT EXAM: SD CHEST 1 | | VIEW HISTORY: Evaluation [...] | + + + + + | [facility] | [address] | [place] [address] | | | ELIN, NATALEE | VILMA [...] | + + + + + | [facility] | [address] | [place] [address] | | | SERVICES, CORE | PARK [...] | | | LABORATORY | | | TUNISIAN | | | SERVICES, | | | [...] [facility] | [address] | [place] [address] | | | SERVICES, CORE | [address] [...] | | | LABORATORY | | | TUNISIAN | | | SERVICES, | | | [...] | + + + + + | [facility] | [address] | [place] [address] | | | [facility], [facility] | [address] | | | + [...] tomorrow morning. CB Henson Pager / ID: [phone] | | + + + CULTURE, SPUTUM [...] seen | [facility] - | | | [place] | + + + + + + + + | Performing | Address | City/State/Zipcode | Phone Number | | Organization | | | | + + + + + | [employer] [facility] - | [address] | [place] [address] | | | [place] | | | | + + + [...] [facility] | [address] | [place] [address] | | | SERVICES, CORE | [address] [...] | [facility] | | | GRAVITY | [place] performed by | | LABORATORY | | [...] | + + + + + | [facility] | [address] | [place] [address] | | | SERVICES, CORE | [address] | | | + + + + + CULTURE, BLOOD BACTI & YEAST [facility] (09/04/2017 1:16 PM PDT) + + + [...] | + + + + + | [facility] | [address] | [place] [address] | | | SERVICES, CORE | [address] [...] [facility] | [address] | [place] [address] | | | SERVICES, CORE | [address] [...] | + + + + + | [facility] | [address] [facility] | [place], [place] | | | CARDIOLOGY | [address] | [address] | | + + + + + X-RAY PORTABLE CHEST 1 VIEW (09/04/2017 7:04 AM PDT) + + | Specimen | + + | | + + + + + | Narrative | Performed At | + + + | EXAM: SD CHEST 1 VIEW HISTORY: Hypoxia. Intubated. | [...] Service Account, Radiant Res In Interface - 09/04/2017 9:49 AM PDT EXAM: SD CHEST 1 | | VIEW HISTORY: Hypoxia. [...] | + + + + + | [facility] | [address] | [place] [address] | | | SERVICES, CORE | [address] [...] | + + + + + | [facility] | [address] [facility] | [place] [address] | | | SERVICES, CORE | [address] [...] | | | LABORATORY | | | TUNISIAN | | | SERVICES, | | | [...] the MDRD equation recommended by the | [facility] | | National Kidney Disease Education Program. [...] | + + + + + | [facility] | [address] | [place] [address] | | | SERVICES, CORE | PARK [...] [facility] | [address] | [place] [address] | | | SERVICES, CORE | PARK [...] | [facility] | [address] | [place], [place] | | | [place] POINT OF CARE | [address] | [address] | | | TESTS | | | [...] + + + | [facility] | [address] | [place], [place] | | | [facility]INT [facility] CARE | [address] | [address] | | | TESTS | | | [...] [facility] | [address] | [place], [place] | | | [facility]INT [facility] CARE | [address] | [address] | | | TESTS | | | [...] + + | [facility] | [address] | [place], [place] | | | [facility] | [address] | [address] | | | TESTS | | | [...] Note | + + | Service Account, [employer] In Interface - 09/03/2017 10:27 AM PDT [...] detected | [facility] - | | | [facility] | + + + + + + + + | Performing | Address | City/State/Zipcode | Phone Number | | Organization | | | | + + + + + | [facility] - | [address] | [place] [address] | | | [place] | | | [...] | + + + + + | [facility] | [address] | [place] [address] | | | SERVICES, CORE | PARK [...] Note | + + | Service Account, [employer] In Interface - 09/03/2017 9:54 AM PDT [...] + | [facility] - | [address] | [place] [address] | | | [place] | | | | + + + [...] [facility] | [address] | [place] [address] | | | SERVICES, CORE | PARK [...] | + + + + + | [facility] | [address] | [place] [address] | | | SERVICES, CORE | [address] | | | + [...] | | | LABORATORY | | | T[facility]IAN | | | SERVICES, | | | [...] | + + + + + | [facility] | [address] | [place] [address] | | | SERVICES, CORE | PARK [...] | + + + + + | [facility] | [address] [facility] | [place] [address] | | | SERVICES, CORE | [address] | | | + + + + + OPERATION RECORD (09/02/2017 6:53 PM PDT) + + | Procedure Note | + + | Fidelina Shields MD - 09/02/2017 6:53 PM PDT Date of Service: 09/02/2017 | | Attending Surgeon: Fidelina Shields MD Leader Tier(s): | | Ajay Butts MD, resident. Preoperative [...] 09/02/2017 18:15:29DT: 09/02/2017 18:53:52Job #: | | [id number] to federal Medicare and Medicaid regulations I was present for | | the entire procedure.Fidelina Shields MDAssistant ProfessorDepartment of SurgeryOffice: | | [phone]: [id number] has been electronically signed by Fidelina Shields MD, | | 09/03/2017 at 9:11 AM. | | | | | |Fidelina Shields MD | |[facility] | |Department of Surgery | |Office: [phone] | |Pager: [phone] | | | |This has been electronically [...] | + + + + + | [facility] | [address] | [place] [address] | | | SERVICES, CORE | [address] [...] [facility] | [address] | [place] [address] | | | SERVICES, CORE | PARK [...] detected | AIRPORT - | | | [place] | + + + + + + + + | Performing | Address | City/State/Zipcode | Phone Number | | Organization | | | | + + + + + | [facility] | [address] | [place] [address] | | | [place] | | | | + + + [...] [facility] | [address] | [place] [address] | | | SERVICES, CORE | PARK [...] | | | LABORATORY | | | TUNISIAN | | | SERVICES, | | | [...] | + + + + + | [facility] | [address] | [place] [address] | | | NATALEE WORTHINGTON | [address] [...] Note | + + | Service Account, Zakada Res In Interface - 09/02/2017 4:25 PM [...] Bedrest Initial surgical | | | contact: INGRID Butts, Surgery [phone] Pursuant | | | to federal Medicare and Medicaid regulations I was present for the | | | entire procedure. Fidelina Shields MD [facility] | | | Department of Surgery Office: [phone] Pager: [phone] This has | | | been electronically [...] | + + + + + | [facility] | [address] | [place] [address] | | | SERVICES, CORE | PARK [...] mech. valves (2.5 - 3.5) INR | SERVICES, CORE | + + + + + + + + | Performing | Address | City/State/Zipcode | Phone Number | | Organization | | | | + + + + + | [facility] | [address] [facility] | [place] [address] | | | SERVICES, NATALEE | [address] | | | + + + + + OPERATION RECORD (09/02/2017 6:51 AM PDT) + ---+ | Procedure Note | + ---+ | Fidelina Shields MD - 09/02/2017 6:51 AM PDT Date of Service: 09/01/2017 | | Attending Surgeon: Fidelina Shields MD Leader Tier(s): Haim Peralta MD. | | Ajay Butts [...] completion of the angiography.Ajay | | Truong Casarez, TBTim/TAHIRLDD: 09/02/2017 06:17:53DT: 09/02/2017 | | 06:51:37Job #: [id number] to federal Medicare and Medicaid regulations I | | was present for the entire procedure.Fidelina Goodenistanbrice ProfessorDepartment of | | SurgeryOffice: [phone]: [id number] has been electronically signed by Fidelina Radford | MD Cornelius, 09/02/2017 at 10:40 AM. | | | | | |Pursuant to federal Medicare and Medicaid regulations I was present for the entire procedur e. | | | | | | | |Fidelina Shields MD | |[facility] | |Department of Surgery | |Office: [phone] | |Pager: [phone] | | | |This has been electronically [...] | + + + + + | [facility] | [address] | [place] [address] | | | SERVICES, CORE | VILMA [...] [facility] | [address] | [place] [address] | | | SERVICES, NATALEE | [address] [...] + + + + | PRODUCT | [id number] | | [facility] | | | UNIT [...] + + + + | EXPIRATION | [id number] | | [facility] | | | DATE [...] + + + + | BLOOD | [id number] | | [facility] | | | PRODUCT [...] [facility] | [address] | [place] [address] | | | SERVICES, | [address] [...] Note | + + | Service Account, Zakada Res In Interface - 09/02/2017 11:22 AM [...] | | + +---------+ + + | [facility] | | | | | [...] | + + + + + | [facility] | [address] | [place] [address] | | | SERVICES, CORE | VILMA [...] | | | LABORATORY | | | TUNISIAN | | | SERVICES, | | | [...] | + + + + + | [facility] | [address] | [place] [address] | | | SERVICES, CORE | VILMA [...] | + + + + + | [facility] | [address] | [place] [address] | | | SERVICES, CORE | VILMA [...] | | | | INFORMATION: | | [place] | | | | [employer] | [...] (http://www.cdc.gov/mmwr | | | | | | /preview/[email or web address] | | | | | | [email or web address].htm), [...] [facility] | | | | by [employer], | | [facility] - | | | | | | [facility] | | | | [address] | | | | | | [facility] | | | | | | [address] | | | | | | | | | | | | [email or web address] [email or web address] | | | | | | [...] + | [facility] | [address] | [place] [address] | | | [place] | | | [...] | + + + + + | [facility] | [address] | [place] [address] | | | SERVICES, CORE | VILMA [...] | + + + + + | [facility] | [address] | [place] [address] | | | SERVICES, CORE | PARK [...] Account, Radiant Res In Interface - 09/02/2017 8:55 AM PDT [...] At | + + + | EXAM: SD CHEST 1 VIEW HISTORY: Hypoxemia COMPARISON: 09/01/17 [...] Account, Radiant Res In Interface - 09/02/2017 10:34 AM PDT EXAM: SD CHEST 1 | | VIEW HISTORY: HypoxemiaCOMPARISON: [...] [facility] | [address] | [place] [address] | | | SERVICES, CORE | PARK [...] | + + + + + | [facility] | [address] | [place] [address] | | | SERVICES, CORE | VILMA [...] + + + + | PRODUCT | [id number] | | [facility] | | | UNIT [...] + + + + | EXPIRATION | [id number] | | [facility] | | | DATE [...] + + + + | BLOOD | [id number] | | [facility] | | | PRODUCT [...] | + + + + + | [facility] | [address] [facility] | [place] [address] | | | SERVICES, | [address] [...] [facility] | [address] | [place] [address] | | | SERVICES, CORE | PARK [...] [facility] | [address] | [place] [address] | | | SERVICES, CORE | PARK [...] | + + + + + | [facility] | [address] | [place] [address] | | | SERVICES, CORE | PARK [...] | | | LABORATORY | | | TUNISIAN | | | SERVICES, | | | [...] the MDRD equation recommended by the | [facility] | | National Kidney Disease Education Program. [...] | + + + + + | [facility] | [address] [facility] | [place] [address] | | | NATALEE WORTHINGTON | [address] [...] 4.0 mmol/L Arterial blood: 0.5 - | SERVICES, CORE | | 1.6 mmol/L Critical >= 4.0 mmol/L | | + + + + + + + + | Performing | Address | City/State/Zipcode | Phone Number | | Organization | | | | + + + + + | [facility] | [address] | [place] [address] | | | NATALEE WORTHINGTON | [address] [...] is a | 1.14 - 1.32 | [facility] | | | WHOLE BLD | corrected result. | mmol/L | LABORATORY | | | | Previous result was 1.19 | | [facility], | | | | mmol/L on 09/01/2017 [...] Crediting patient. | LABORATORY | | | NATALEE WORTHINGTON | + + + + + + + + | Performing | Address | City/State/Zipcode | Phone Number | | Organization | | | | + + + + + | [facility] | [address] | [place] [address] | | | NATALEE WORTHINGTON | [address] | | | + + + + + IR EMBOLIZATION OTHER (09/01/2017 2:06 PM PDT) + + | [...] micropuncture access set was exchanged for a [employer] wire. Under | | | fluoroscopic guidance, a 5 Fr flush catheter was used to evaluate the | | | distal abdominal aorta and pelvic vasculature. A wire and catheter | | | were then used to select the left common and internal iliac arteries | | | from the right PACKAGE DYER approach. DSA was performed from the left [...] micropuncture access set was exchanged for a Bentson wire. Under fluoroscopic guidance, | | a 5 Fr flush catheter was used to evaluate the distal abdominal aorta and pelvic | | vasculature. A wire and catheter were then used to select the left common and internal | | iliac arteries from the right PACKAGE DYER approach. DSA was performed from the left [...] micropuncture access set was exchanged for a Bentson wire. Under fluoroscopic guidance, a 5 Fr flush catheter was used | |to evaluate the distal abdominal aorta and pelvic vasculature. A wire and catheter were th en used to select the left common and internal iliac arteries from the right PACKAGE DYER approach. DSA was performed from the left [...] | | | + +---------+ + + KATELYNN-CITLALY TEJADA (09/01/2017 1:36 PM PDT) + + + [...] | | ART, POC | | | [facility] | | | | | | GLORIA [...] [facility] | [address] | [place], [place] | | | HILL, POINT OF CARE | [address] | [address] | | | TESTS | | | | + + + + + EXPLORATORY LAPAROTOMY (09/01/2017 12:31 PM PDT) + + + | Narrative | Performed At | + + + | Fidelina Shields MD 09/01/2017 12:42 PM BRIEF OPERATIVE NOTE: | | | Date: 09/01/2017 Author: Fidelina Shields MD | | | Attending Physician: Fidelina Shields MD Leader Tier(s): Haim Peralta | | | , Vicente Butts MD, [facility] MS3 Prior to the | | | [...] case. | | | Fidelina Shields MD [facility] Division of Trauma, | | | Critical Care and Acute Care Surgery Office: [phone] Pager: | [phone] | | + + + ABG-FULL ABL, [...] + + | [facility] | [address] | [place], [place] | | | [place] POINT OF CARE | [address] | [address] | | | TESTS | | | [...] [facility] | [address] | [place] [address] | | | SERVICES, NATALEE | [address] | | | + + + + + KATELYNN-CITLALY TEJADA (09/01/2017 11:04 AM PDT) + + + [...] | | | POC | | | [facility] | | | | | | [...] [facility] | [address] | [place], [place] | | | [place] POINT OF CARE | [address] | [address] | | | TESTS | | | [...] + + + + | PRODUCT | [id number] | | [facility] | | | UNIT [...] + + + + | EXPIRATION | [id number] | | [facility] | | | DATE [...] + + + + | BLOOD | [id number] | | [facility] | | | PRODUCT [...] [facility] | [address] | [place] [address] | | | SERVICES, | [address] [...] + + + + | PRODUCT | [id number] | | [facility] | | | UNIT [...] + + + + | EXPIRATION | [id number] | | [facility] | | | DATE [...] + + + + | BLOOD | [id number] | | [facility] | | | PRODUCT [...] | + + + + + | [facility] | [address] | [place] [address] | | | SERVICES, | [address] [...] + + + + | PRODUCT | [id number] | | [facility] | | | UNIT [...] + + + + | EXPIRATION | [id number] | | [facility] | | | DATE [...] + + + + | BLOOD | [id number] | | [facility] | | | PRODUCT [...] | + + + + + | [facility] | [address] | [place] [address] | | | SERVICES, | [address] [...] + + + + | PRODUCT | [id number] | | [facility] | | | UNIT [...] + + + + | EXPIRATION | [id number] | | [facility] | | | DATE [...] + + + + | BLOOD | [id number] | | [facility] | | | PRODUCT [...] | + + + + + | [facility] | [address] | [place] [address] | | | SERVICES, | [address] [...] + + + + | PRODUCT | [id number] | | [facility] | | | UNIT [...] + + + + | EXPIRATION | [id number] | | [facility] | | | DATE [...] + + + + | BLOOD | [id number] | | [facility] | | | PRODUCT [...] [facility] | [address] | [place] [address] | | | SERVICES, | [address] [...] + + + + | PRODUCT | [id number] | | [facility] | | | UNIT [...] + + + + | EXPIRATION | [id number] | | [facility] | | | DATE [...] + + + + | BLOOD | [id number] | | [facility] | | | PRODUCT [...] [facility] | [address] | [place] [address] | | | SERVICES, | [address] [...] + + + + | PRODUCT | [id number] | | [facility] | | | UNIT [...] + + + + | EXPIRATION | [id number] | | [facility] | | | DATE [...] + + + + | BLOOD | [id number] | | [facility] | | | PRODUCT [...] [facility] | [address] | [place] [address] | | | SERVICES, | [address] [...] + + + + | PRODUCT | [id number] | | [facility] | | | UNIT [...] + + + + | EXPIRATION | [id number] | | [facility] | | | DATE [...] + + + + | BLOOD | [id number] | | [facility] | | | PRODUCT [...] [facility] | [address] | [place] [address] | | | SERVICES, | [address] [...] + + + + | PRODUCT | [id number] | | [facility] | | | UNIT [...] + + + + | EXPIRATION | [id number] | | [facility] | | | DATE [...] + + + + | BLOOD | [id number] | | [facility] | | | PRODUCT [...] [facility] | [address] | [place] [address] | | | SERVICES, | [address] [...] + + + + | PRODUCT | [id number] | | [facility] | | | UNIT [...] + + + + | EXPIRATION | [id number] | | [facility] | | | DATE [...] + + + + | BLOOD | [id number] | | [facility] | | | PRODUCT [...] [facility] | [address] | [place] [address] | | | SERVICES, | [address] [...] + + + + | PRODUCT | [id number] | | [facility] | | | UNIT [...] + + + + | EXPIRATION | [id number] | | [facility] | | | DATE [...] + + + + | BLOOD | [id number] | | [facility] | | | PRODUCT [...] | + + + + + | [facility] | [address] | [place] [address] | | | SERVICES, | [address] [...] + + + + | PRODUCT | [id number] | | [facility] | | | UNIT [...] + + + + | EXPIRATION | [id number] | | [facility] | | | DATE [...] + + + + | BLOOD | [id number] | | [facility] | | | PRODUCT [...] | + + + + + | [facility] | [address] | [place] [address] | | | SERVICES, | [address] [...] + + + + | PRODUCT | [id number] | | [facility] | | | UNIT [...] + + + + | EXPIRATION | [id number] | | [facility] | | | DATE [...] + + + + | BLOOD | [id number] | | [facility] | | | PRODUCT [...] | + + + + + | [facility] | [address] | [place] [address] | | | SERVICES, | [address] [...] + + + + | PRODUCT | [id number] | | [facility] | | | UNIT [...] + + + + | EXPIRATION | [id number] | | [facility] | | | DATE [...] + + + + | BLOOD | [id number] | | [facility] | | | PRODUCT [...] [facility] | [address] | [place] [address] | | | SERVICES, | [address] [...] + + + + | PRODUCT | [id number] | | [facility] | | | UNIT [...] + + + + | EXPIRATION | [id number] | | [facility] | | | DATE [...] + + + + | BLOOD | [id number] | | [facility] | | | PRODUCT [...] [facility] | [address] | [place] [address] | | | SERVICES, | [address] [...] + + + + | PRODUCT | [id number] | | [facility] | | | UNIT [...] + + + + | EXPIRATION | [id number] | | [facility] | | | DATE [...] + + + + | BLOOD | [id number] | | [facility] | | | PRODUCT [...] [facility] | [address] | [place] [address] | | | SERVICES, | [address] [...] + + + + | PRODUCT | [id number] | | [facility] | | | UNIT [...] + + + + | EXPIRATION | [id number] | | [facility] | | | DATE [...] + + + + | BLOOD | [id number] | | [facility] | | | PRODUCT [...] [facility] | [address] | [place] [address] | | | SERVICES, | [address] [...] + + + + | PRODUCT | [id number] | | [facility] | | | UNIT [...] + + + + | EXPIRATION | [id number] | | [facility] | | | DATE [...] + + + + | BLOOD | [id number] | | [facility] | | | PRODUCT [...] [facility] | [address] | [place] [address] | | | SERVICES, | [address] [...] + + + + | PRODUCT | [id number] | | [facility] | | | UNIT [...] + + + + | EXPIRATION | [id number] | | [facility] | | | DATE [...] + + + + | BLOOD | [id number] | | [facility] | | | PRODUCT [...] + | [facility] | [address] | [place] [address] | | | SERVICES, | [address] [...] + + + + | PRODUCT | [id number] | | [facility] | | | UNIT [...] + + + + | EXPIRATION | [id number] | | [facility] | | | DATE [...] + + + + | BLOOD | [id number] | | [facility] | | | PRODUCT [...] + | [facility] | [address] | [place] [address] | | | SERVICES, | [address] [...] + + + + | PRODUCT | [id number] | | [facility] | | | UNIT [...] + + + + | EXPIRATION | [id number] | | [facility] | | | DATE [...] + + + + | BLOOD | [id number] | | [facility] | | | PRODUCT [...] | + + + + + | [facility] | [address] | [place] [address] | | | SERVICES, | [address] [...] + + + + | PRODUCT | [id number] | | [facility] | | | UNIT [...] + + + + | EXPIRATION | [id number] | | [facility] | | | DATE [...] + + + + | BLOOD | [id number] | | [facility] | | | PRODUCT [...] | + + + + + | [facility] | [address] | [place] [address] | | | SERVICES, | [address] [...] + + + + | PRODUCT | [id number] | | [facility] | | | UNIT [...] + + + + | EXPIRATION | [id number] | | [facility] | | | DATE [...] + + + + | BLOOD | [id number] | | [facility] | | | PRODUCT [...] | + + + + + | [facility] | [address] | [place] [address] | | | SERVICES, | [address] [...] + + + + | PRODUCT | [id number] | | [facility] | | | UNIT [...] + + + + | EXPIRATION | [id number] | | [facility] | | | DATE [...] + + + + | BLOOD | [id number] | | [facility] | | | PRODUCT [...] | + + + + + | [facility] | [address] | [place] [address] | | | SERVICES, | [address] [...] + + + + | PRODUCT | [id number] | | [facility] | | | UNIT [...] + + + + | EXPIRATION | [id number] | | [facility] | | | DATE [...] + + + + | BLOOD | [id number] | | [facility] | | | PRODUCT [...] [facility] | [address] | [place] [address] | | | SERVICES, | [address] [...] + + + + | PRODUCT | [id number] | | [facility] | | | UNIT [...] + + + + | EXPIRATION | [id number] | | [facility] | | | DATE [...] + + + + | BLOOD | [id number] | | [facility] | | | PRODUCT [...] [facility] | [address] | [place] [address] | | | SERVICES, | [address] [...] | + + + + + | [facility] | [address] | [place] [address] | | | SERVICES, CORE | [address] | | | + [...] | | | LABORATORY | | | TUNISIAN | | | SERVICES, | | | [...] | + + + + + | [facility] | [address] | [place] [address] | | | SERVICES, CORE | [address] [...] | + + + + + | [facility] | [address] | [place] [address] | | | SERVICES, CORE | [address] | | | + + + + + BG-CITLALY SCHAFFER RT (09/01/2017 9:19 AM PDT) + + + + + + | Component | Value | Ref Range | Performed | Pathologist | | | | | At | Signature | + + + + + + | HCO3 | 27.1 | 21 - 28 mmol/L | [facility] [...] + + | [facility] | [address] | [place], [place] | | | [place] POINT OF CARE | [address] | [address] | | | TESTS | | | | + + + + + X-RAY PORTABLE CHEST 1 VIEW (09/01/2017 9:18 AM PDT) + + | Specimen | + + | | + + + + + | Narrative | Performed At | + + + | EXAM: SD CHEST 1 VIEW HISTORY: Intubated COMPARISON: 08/31/17 [...] Note | + + | Service Account, Zakada Res In Interface - 09/02/2017 1:23 PM PDT EXAM: SD CHEST 1 | | VIEW HISTORY: IntubatedCOMPARISON: 08/31/17INDINGS: Support equipment is unchanged. The | | [...] Note | + + | Service Account, Zakada Res In Interface - 09/01/2017 1:40 PM [...] + + + + | PRODUCT | [id number] | | [facility] | | | UNIT [...] + + + + | EXPIRATION | [id number] | | [facility] | | | DATE [...] + + + + | BLOOD | [id number] | | [facility] | | | PRODUCT [...] | + + + + + | [facility] | [address] | [place] [address] | | | SERVICES, | [address] [...] + + + + | PRODUCT | [id number] | | [facility] | | | UNIT [...] + + + + | EXPIRATION | [id number] | | [facility] | | | DATE [...] + + + + | BLOOD | [id number] | | [facility] | | | PRODUCT [...] [facility] | [address] | [place] [address] | | | SERVICES, | [address] [...] + + + + | PRODUCT | [id number] | | [facility] | | | UNIT [...] + + + + | EXPIRATION | [id number] | | [facility] | | | DATE [...] + + + + | BLOOD | [id number] | | [facility] | | | PRODUCT [...] [facility] | [address] | [place] [address] | | | SERVICES, | [address] [...] + + + + | PRODUCT | [id number] | | [facility] | | | UNIT [...] + + + + | EXPIRATION | [id number] | | [facility] | | | DATE [...] + + + + | BLOOD | [id number] | | [facility] | | | PRODUCT [...] [facility] | [address] | [place] [address] | | | SERVICES, | [address] [...] + + + + | PRODUCT | [id number] | | [facility] | | | UNIT [...] + + + + | EXPIRATION | [id number] | | [facility] | | | DATE [...] + + + + | BLOOD | [id number] | | [facility] | | | PRODUCT [...] [facility] | [address] | [place] [address] | | | SERVICES, | [address] [...] + + + + | PRODUCT | [id number] | | [facility] | | | UNIT [...] + + + + | EXPIRATION | [id number] | | [facility] | | | DATE [...] + + + + | BLOOD | [id number] | | [facility] | | | PRODUCT [...] [facility] | [address] | [place] [address] | | | SERVICES, | [address] [...] + + + + | PRODUCT | [id number] | | [facility] | | | UNIT [...] + + + + | EXPIRATION | [id number] | | [facility] | | | DATE [...] + + + + | BLOOD | [id number] | | [facility] | | | PRODUCT [...] [facility] | [address] | [place] [address] | | | SERVICES, | [address] [...] + + + + | PRODUCT | [id number] | | [facility] | | | UNIT [...] + + + + | EXPIRATION | [id number] | | [facility] | | | DATE [...] + + + + | BLOOD | [id number] | | [facility] | | | PRODUCT [...] | + + + + + | [facility] | [address] | [place] [address] | | | SERVICES, | [address] [...] + + + + | PRODUCT | [id number] | | [facility] | | | UNIT [...] + + + + | EXPIRATION | [id number] | | [facility] | | | DATE [...] + + + + | BLOOD | [id number] | | [facility] | | | PRODUCT [...] | + + + + + | [facility] | [address] | [place] [address] | | | SERVICES, | [address] [...] | + + + + + | [facility] | [address] | [place] [address] | | | SERVICES, CORE | [address] [...] [facility] | [address] | [place] [address] | | | SERVICES, CORE | [address] [...] Discussed with | | | trauma ICU internet consultant by Dr. Yang at 4:38 AM. I [...] interspinous ligament is injured.Discussed with trauma ICU internet consultant | | by Dr. Yang at 4:38 AM.I have personally reviewed the images and, if necessary, | | edited the report. I agree with the report as now presented. | |3. Extensive soft tissue edema extending into the cervical and upper thoracic interspinous space, suggestive of interspinous ligament is injured. | | | |Discussed with trauma ICU internet consultant by Dr. Yang at 4:38 AM. | [...] | | | LABORATORY | | | TUNISIAN | | | SERVICES, | | | [...] [facility] | [address] | [place] [address] | | | SERVICES, CORE | PARK [...] [facility] | [address] | [place] [address] | | | SERVICES, CORE | PARK [...] [facility] | [address] | [place] [address] | | | SERVICES, CORE | [address] [...] | + + + + + | [facility] | [address] [facility] | [place] [address] | | | SERVICES, [facility] | [address] | | | + [...] pleural spaced was performed. A 32 size Egyptian chest tube was | | | placed [...] | ventricles. Discussed with the trauma ICU internet consultant at 12:12 AM by | | | Dr. Yang. I have personally reviewed the images and, if | | | necessary, edited the report. I agree with the report as now | | | presented. | | + + + + + | Procedure Note | + + | Service Account, Radiant Res In Interface - 09/01/2017 10:14 AM [...] ventricles.Discussed with | | the trauma ICU internet consultant at 12:[address] Yang.I have [...] | | |Discussed with the trauma ICU internet consultant at 12:[address] Yang. | [...] [facility] | [address] | [place], [place] | | | [facility] | [address] | [address] | | | TESTS | | | [...] [facility] | [address] | [place] [address] | | | SERVICES, CORE | PARK [...] [facility] | [address] | [place] [address] | | | NATALEE WORTHINGTON | [address] [...] Account, Radiant Res In Interface - 09/01/2017 1:50 PM [...] Account, Radiant Res In Interface - 09/01/2017 1:50 PM [...] + + | Performing | Address | City/State/[facility] | Phone Number | | Organization | [...] Account, Radiant Res In Interface - 09/01/2017 1:50 PM [...] | | + +---------+ + + | [facility] | | | | | [...] | + + + + + | [facility] | [address] | [place] [address] | | | [facility] | [address] | | | + + + + + X-RAY PORTABLE CHEST 1 VIEW (08/31/2017 7:07 PM PDT) + + | Specimen | + + | | + + + + + | Narrative | Performed At | + + + | STUDY: SD CHEST 1 VIEW HISTORY: Trauma COMPARISON: CT CAP | [facility] | | 08/31/2017 FINDINGS: Endotracheal tube [...] Interface - 09/01/2017 1:44 PM PDT STUDY: SD CHEST 1 | | VIEWHISTORY: TraumaCOMPARISON: CT [...] | + + + + + | [facility] | [address] | [place] [address] | | | SERVICES, CORE | [address] [...] Note | + + | Service Account, [employer] In Interface - 08/31/2017 8:22 PM PDT [...] rib, nondisplaced-Left | | 1st rib fracture, [id number] left lateral 8th rib fracture-T12 fracture | [...] [facility] | [address] | [place] [address] | | | SERVICES, | [address] [...] [facility] | [address] | [place] [address] | | | SERVICES, | [address] [...] [facility] | [address] | [place] [address] | | | SERVICES, | [address] [...] | | | CITRATED | | | [facility] | | | | | | GLORIA [...] normal. Depressed MA corresponds to decreased | [place], | | clot strength suggesting HYPOcoagulability. Consider [...] | [facility] | [address] | [place], [place] | | | [facility] GENAO [facility] | [address] | [address] | | | TESTS | | | [...] | | | CITRATED | | | [place] | | | | | | GLORIA GENAO | | | | | | OF CARE | | | | | | TESTS | | + + + + + + | ANGLE - | 68.9 | 53 - 72 Degrees | [facility] - | | | CITRATED | | | [facility] | | | | | | GLORIA [...] - | | | | | | [place] | | | [...] + + + | [facility] | [address] | [place], [place] | | | GLORIA GENAO [facility] | [facility] | [address] | | | TESTS | | | | + + + + + CHEM 8 W/H&H,POC (08/31/2017 5:31 PM PDT) + + + [...] | | POC | | mmol/L | MARKHRISAM | | | | | | GLORIA [...] | | | POC | | | MARQUYEISON | | | [...] [facility] | [address] | [place], [place] | | | GLORIA GENAO [facility] | [address] | [address] | | | TESTS | | | | + + + + + ED -CITLALY BAKER (08/31/2017 5:21 PM PDT) + + + [...] - [facility] | [address] | [place], [place] | | | [facility] | [address] | [address] | | | TESTS | | | [...] + + + + | PRODUCT | [id number] | | [facility] | | | UNIT [...] + + + + | EXPIRATION | [id number] | | [facility] | | | DATE [...] + + + + | BLOOD | [id number] | | [facility] | | | PRODUCT [...] [facility] | [address] | [place] [address] | | | SERVICES, | [address] [...] + + + + | PRODUCT | [id number] | | [facility] | | | UNIT [...] + + + + | EXPIRATION | [id number] | | [facility] | | | DATE [...] + + + + | BLOOD | [id number] | | [facility] | | | PRODUCT [...] | + + + + + | [facility] | [address] | [place] [address] | | | SERVICES, | [address] [...] + + + + | PRODUCT | [id number] | | [facility] | | | UNIT [...] + + + + | EXPIRATION | [id number] | | [facility] | | | DATE [...] + + + + | BLOOD | [id number] | | [facility] | | | PRODUCT [...] | + + + + + | [facility] | [address] | [place] [address] | | | SERVICES, | [address] [...] + + + + | PRODUCT | [id number] | | [facility] | | | UNIT [...] + + + + | EXPIRATION | [id number] | | [facility] | | | DATE [...] + + + + | BLOOD | [id number] | | [facility] | | | PRODUCT [...] | + + + + + | [facility] | [address] | [place] [address] | | | SERVICES, | [address] [...] + + + + | PRODUCT | [id number] | | [facility] | | | UNIT [...] + + + + | EXPIRATION | [id number] | | [facility] | | | DATE [...] + + + + | BLOOD | [id number] | | [facility] | | | PRODUCT [...] | + + + + + | [facility] | [address] | [place] [address] | | | SERVICES, | [address] [...] + + + + | PRODUCT | [id number] | | [facility] | | | UNIT [...] + + + + | EXPIRATION | [id number] | | [facility] | | | DATE [...] + + + + | BLOOD | [id number] | | [facility] | | | PRODUCT [...] | + + + + + | [facility] | [address] | [place] [address] | | | SERVICES, | [address] [...] + + + + | PRODUCT | [id number] | | [facility] | | | UNIT [...] + + + + | EXPIRATION | [id number] | | [facility] | | | DATE [...] + + + + | BLOOD | [id number] | | [facility] | | | PRODUCT [...] [facility] | [address] | [place] [address] | | | SERVICES, | [address] [...] + + + + | PRODUCT | [id number] | | [facility] | | | UNIT [...] + + + + | EXPIRATION | [id number] | | [facility] | | | DATE [...] + + + + | BLOOD | [id number] | | [facility] | | | PRODUCT [...] [facility] | [address] | [place] [address] | | | SERVICES, | [address] [...] | + + + + + | [facility] | [address] | [place] [address] | | | SERVICES, CORE | [address] | | | + [...] | | | LABORATORY | | | TUNISIAN | | | SERVICES, | | | [...] | + + + + + | [facility] | [address] | [place] [address] | | | SERVICES, CORE | [address] [...] | + + + + + | [facility] | [address] | [place] [address] | | | SERVICES, CORE | [address] [...] [facility] | [address] | [place] [address] | | | SERVICES, CORE | [address] [...] | + + + + + | [facility] | [address] | [place] [address] | | | SERVICES, CORE | [address] [...] | + + + + + | [facility] | [address] | [place] [address] | | | SERVICES, CORE | [address] [...] | | | 11/02/17 at 1144, Until Sat12/06/17 | | | | | [...] 6 HOURS | | | NEEDED, Starting 12/03/17 at | | | 1128, Until Sat12/06/17 [...] +---+---+ | | | +---+---+ + +-------+ +------+---+ + | lidocaine injection | Given | 10/25/19 | 2 mL | | Surgical | | INTRAPROCEDURE PRN, Starting Sho | | 18 11:56 | | | Site | | 10/24/17 at 1156, Until Sho | | AM PDT | | | | | 10/24/17 at 1214 | | | | | | + +-------+ +------+---+ + +---+---+ | | | +---+---+ + [...] | 4 mg 4 mg, intravenous, EVERY | | 18 4:08 | | | [...] | | | | | modification) on Sho 11/07/17 at | | | | | [...] | | | | | 12/06/17 at 2052, nausea/vomiting, | | | | | | [...] | | | DAILY, First dose on 12/03/17 | | AM PDT | | | [...]
--- OUTSIDE RECORDS SUMMARY | ~2019-12-25 | XMS | Encounter Summary ---
Demographics + + + | Address | [address] | | | [place] [address] | + + + | Home Phone [...] + + | Author | [facility] | + + + | Organization | [facility] | + + + | Address | Unknown | + + + | Phone | Unavailable | + + + Support + + +---------+ + | Name | Relationship | Address | Phone | + + +---------+ + | Kaylie Baig | ECON | Unknown | | + + +---------+ + Care Team Providers + +------+ + | Care Bus Boy Name | Role | Phone | + +------+ + | No Pcp Per Patient | PCP | Unavailable | + +------+ + Encounter Details +--------+ + + + + | Date | Type | Department | Care Team | Description | +--------+ + + + + | 10/22/ | Procedure | Diagnostic Imaging | | | | 2017 | Pass | Services at [facility] | | | | | | [address] | | | | | | [place] | | | | | | [facility], [address] [place] [address] | | | | | | [place], [place] | | | | | | [address] | | | | | | [phone] | | | +--------+ + + + [...]
--- OUTSIDE RECORDS SUMMARY | ~2019-12-25 | XMS | Encounter Summary ---
Demographics + + + | Address | [address] | | | [place] [address] | + + + | Home Phone [...] Author + + + | Author | [facility] [employer] [facility] | + + + | Organization | [facility] [employer] [facility] | + + + | Address | Unknown | + + + | Phone | Unavailable | + + + Support + + +---------+ + | Name | Relationship | Address | Phone | + + +---------+ + | Kaylie Baig | ECON | Unknown | | + + +---------+ + Care Team Providers + +------+ + | Care Tow Boat Captain Name | Role | Phone | + [...] [facility] | | | | | [facility] | [address] | | | | | Hospital Admitting | [place], [place] | | | | | Desk Located on the | [address] | | | | | 9th floor | [phone] | | | | | [place], [place] | | | | | | [address] | Jennifer Henderson CRNA | | | | | | [address] | | | | | | [facility] | | | | | | [place] [address] | | | | | | [phone] | | | | | | | [...] centrally accessed); | | | | | [id number]; 10/22/17; 1542; | | | | | [...] 1733 by | | g Tube | ([facility] low profile g-tube 18 fr [...] by | 10/12/171731 by | | | (white [place] 19fr channel drain); | Valeria Seth RN [...] | G-tube (Donte Tube); Abdomen UL; | Doreen Lopez RN | RT Mustapha | | [...] MD - 10/12/2017 7:12 PM PDTRusslucero barker [id number] No Known Allergies No past surgical history [...] be different from the original. [place] [facility] [id number] No Known Allergies NPO:NPO Status: since admission [...] Date RATE 119 10/11/2017 ATRIALRATE 119 10/11/2017 GA 164 10/11/2017 QRS 121 10/11/2017 QT 347 [...]
--- OUTSIDE RECORDS SUMMARY | ~2019-12-25 | XMS | Encounter Summary ---
Demographics + + + | Address | [address] | | | [place] [address] | + + + | Home Phone [...] + + + | Author | [facility] | + + + | Organization | [facility] [employer] [facility] | + [...] Team Providers + +------+ + | Care District Wire Chief Name | Role | Phone | + +------+ + | No Pcp Per Patient | PCP | Unavailable | + +------+ + Encounter Details +--------+ + + + + | Date | Type | Department | Care Team | Description | +--------+ + + + + | 10/12/ | Procedure | Diagnostic Imaging | | | | 2018 | Pass | Services at [facility] | | | | | | [address] | | | | | | [place] | | | | | | [facility], [address] [place] [address] | | | | | | [place], [place] | | | | | | [address] | | | | | | [phone] | | | +--------+ + + + [...]
--- OUTSIDE RECORDS SUMMARY | ~2019-12-25 | XMS | Encounter Summary ---
Demographics + + + | Address | [address] | | | [place] [address] | + + + | Home Phone | | + + + | Preferred Language | Unknown | + + + | Marital Status | Single | + + + | Yarsani Affiliation | PEN | + + + | Race | or | + + + | Ethnic Group | Not or | + + + Author + + + | Author | [facility] | + + + | Organization | [facility] [employer] [facility] | + + + | Address | Unknown | + + + | Phone | Unavailable | + + + Support + + +---------+ + | Name | Relationship | Address | Phone | + + +---------+ + | Kaylie Baig | ECON | Unknown | | + + +---------+ + Care Team Providers + +------+ + | Care Window Caser Name | Role | Phone | + [...] | | | | | | Rd [facility] | | | | | | Hospital Admitting | | | | | | Desk Located on the | | | | | | 9th floor | | | | | | [place], [place] | | | | | | [address] | | | +--------+ + + + [...]
--- OUTSIDE RECORDS SUMMARY | ~2019-12-25 | XMS | Encounter Summary ---
Demographics + + + | Address | [address] | | | [place] [address] | + + + | Home Phone | | + + + | Preferred Language | Unknown | + + + | Marital Status | Single | + + + | Taoism Affiliation | Unknown | + + + | Race | or | + + + | Ethnic Group | Not or | + + + Author + + + | Author | [facility] | | | and [place] | + + + | Organization | [facility] | | | and [place] | + [...] Team Providers + +------+ + | Care Ax Survey Worker Name | Role | Phone | + +------+ + | [facility] | PCP | | + +------+ + Reason for Visit + + + | Reason | Comments | + + + | Dizziness | | + + + | Weakness | | + + + Auth/Cert +--------+--------+ + + + + | Status | Reason | Specialty | Diagnoses / | Referred By | Referred To | | | | | Procedures | Contact | Contact | +--------+--------+ + + + + | | | | Diagnoses | | | | | | | Acute | | | | | | | encephalopat | | | | | | | hy | | | +--------+--------+ + + + + Encounter Details +--------+ + + + + | Date | Type | Department | Care Team | Description | +--------+ + + + + | 03/15/ | Emergency | [facility] | [place], | Acute encephalopathy | | 2017 - | | [facility] | MD [address] | (Primary Dx); | | | | NEUROLOGY [address] | [address] | Alcohol abuse; | | 03/18/ | | BENJAMIN Sosa | [place] [address] | Traumatic brain | | 2017 | | [id number] | [phone] | injury, without loss | | | | [phone] | | of consciousness, | | | | | Anjum Garcia | subsequent | | | | | MD José Manuel [address] | encounter; Fall, | | | | | [address] [place] | initial encounter; | | | | | [place] [address] | Homelessness; | | | | | [phone] | Nicotine abuse; | | | | | | Hyperglycemia; | | | | | Piedad Ruiz MD | Hypokalemia | | | | | [address] | | | | | | [place] | | | | | | [address] | | | | | | | | +--------+ + + + + Social History + + [...] + + + documented in this encounter Discharge Summaries Anjum Garcia MD - 03/18/2017 1:35 PM PSTFormatting of this note might be di fferent from the original. [facility]G FACULTY HOSPITALIST DISCHARGE SUMMARY PATIENT NAME: Berlin Temple DATE OF : 1960 DATE OF ADMISSION: 03/15/2017 DATE OF DISCHARGE: 03/18/17 PRIMARY CARE PHYSICIAN: Kat Staples ISSUES REQUIRING FOLLOW UP AFTER DISCHARGE: needs management of symptomatic positional kirstie iation addressed, as well as general deconditioning and inability to care for self related t o catastrophic head injury sustained in jan 2017. FOLLOW UP: No follow-up provider specified. 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 The patient was hospitalized for one month at [facility] He underwent decompressive craniectomy and was discharged without a bone flap in place. He has a 3 month follow-up for cranioplasty. Since his discharge on 03/08 from [facility] the patient has been in and out of emergency [place] [facility] [place] as [facility]. He was transferred back to [facility] on 03/13, then discharged to [facility] on 03/15. He presented to the emergency department at [facility] on 03/15 after being discharged from [facility] on the same day. His chief complaint was headache, dizziness and weakness. He suffered a fall in the emergency department here a t [facility] facility. In the ED he was found to have waxing and waning alertness. Pt was placed in observation d ue to face pt was unsafe for discharge- review of serial brain imaging over last month is bedoya ggestive of positional herniation- he becomes less responsive when in supine position. His m ental status improved over 24 hours of keeping head of bed at 45 degrees. Discussion has bee n ongoing between facilities, and decision was made for patient to return to [facility] for t reatment under guidance of his neurosurgeon and physicians/staff familiar to his case. Pt wi ll go to dr Guerrero on hospitalist team, with consultation from his neurosurgeon, dr Breaux. D iscussed case with Dr Jatinder Kemp, hospitalst at [facility]. DISCHARGE DIAGNOSES: Active Hospital Problems Diagnosis Acute encephalopathy Traumatic brain injury Alcohol abuse Nicotine abuse Fall Homelessness Hyperglycemia Hypokalemia Resolved Hospital Problems Diagnosis No resolved problems to display. DISCHARGE EXAM: Temp: [36.4 C (97.5 F)-37.2 C (98.9 F)] 36.5 C (97.7 F) Pulse: [60-84] 80 Resp: [16-18] 18 BP: (112-148)/(70-92) 121/81 Physical Exam Constitutional: He appears well-developed. HENT: Skull abnormality on R, healed/healing incisions. Eyes: Conjunctivae are normal. Pupils are equal, round, and reactive to light. Neck: Normal range of motion. Neck supple. Cardiovascular: Normal rate and regular rhythm. Pulmonary/Chest: Effort normal and breath sounds normal. Abdominal: Soft. Bowel sounds are normal. Musculoskeletal: L>R weakness. Waxing/waning MS. Alert today, but confused, cant remember what he wants when I interview him. Neurological: He is alert. Unable to stand independently due to general weakness, but has L>R changes on neuro exam. Skin: Skin is warm. Capillary refill takes less than 2 seconds. Psychiatric: Waxing and waning MS. Becomes less responsive/confused when lays supine, does better with H OB kept at 30-45 degrees. Drooling more today, but overall more cohesive thought content coni n yesterday, though has significant difficulty with memory. Nursing note and vitals reviewed. DISCHARGE MEDICATIONS: Discharge Medications Unchanged Medications Details atorvaSTATin 20 mg tablet Take 20 mg by mouth nightly. aka: LIPITOR escitalopram 10 mg tablet Take 10 mg by mouth Daily. aka: LEXAPRO levETIRAcetam 500 mg tablet Take 500 mg by mouth 2 times daily. aka: KEPPRA Discontinued Medications zolpidem 5 mg tablet aka: AMBIEN PROCEDURES THIS ADMISSION: as above PERTINENT LAB AND IMAGING RESULTS: as above CONDITION AT DISCHARGE: Fair TIME SPENT ON DISCHARGE: greater than 30 minutes Electronically signed by: Anjum Garcia MD 03/18/2017 13:35 Portions of this chart may have been created with abeo voice recognition software. Occasi onal wrong-word or sound-alike substitutions may have occurred due to the inherent vaughn itations of voice recognition software. Please read the chart carefully and recognize, using context, where these substitutions have occurred documented in this encounter Medications at Time of Discharge + + + +---------+--------+ + | Medication | Sig | Dispensed | Refills | Start | End Date | | | | | | Date | | + + + +---------+--------+ + | atorvaSTATin | Take 20 mg by mouth | | 0 | | | | (LIPITOR) 20 mg | nightly. | | | | | | tablet | | | | | | + + + +---------+--------+ + | escitalopram | Take 10 mg by mouth | | 0 | | | | (LEXAPRO) 10 mg | Daily. | | | | | | tablet | | | | | | + + + +---------+--------+ + | levETIRAcetam | Take 500 mg by mouth | | 0 | | | | (KEPPRA) 500 mg | 2 times daily. | | | | | | tablet | | | | | | + + + +---------+--------+ + documented as of this encounter Progress Notes Pilar Atkinson MSW - 03/18/2017 3:40 PM PSTSW Plan: [facility] stretcher transport 1630. PCS form in soft chart. [facility], room 1126 Intervention: Arranged [facility] stretcher transport for 1630, completed and placed in soft chart . Requested MD complete Interhospital Transfer Form. MD completed EMTALA Form 2016 form in E PIC which requires RN to complete as well, provider not able to complete Interhospital Trans khari Form, states EMTALA 2016 form is sufficient. SIGIFREDO discussed with RN and clubhouse attendant. RN and clubhouse attendant aware of transport at 1630 and need for form to be completed prior to [facility] arrival. MD and RN verify report was given. SW informed Nunu at [facility] bed placement: [phone] o f transport pecan picker time, verify bed availability, provider and RN assignment. Chart Review: Pt is a 56 yo who is homeless and has [place] Medicaid. Order for readmi ssion risk. MD is requesting placement in a SNF or AFH. Barrier to SNF placement will be M edicaid and homelessness. SIGIFREDO also completed a [facility] referral and faxed to [facility]. SIGIFREDO requested help with finding permanent placement for pt due to his readmission risk and TBI. SIGIFREDO also faxed referral to [facility] respite bed as well for placement. Mitali Cooper RN - 03/18/2017 3:21 PM PSTALEXEI-GRZEGORZ; [facility] team signing off case. Per MD notes patient [place] [facility]Electronically signed b y: Mitali Robertson RN 03/18/2017 15:23 Pilar Jenkins MS W - 03/18/2017 1:05 PM PSTSW Plan: [facility] IRF reviewing. Intervention: Discussed therapy recommendations of IRF and requested order in d/c planning. Received VM from [facility], pt would not be appropriate until sitter/restraint free, inco ntinent resolves. Barrier to DC: SNF placement will be difficult due to Medicaid and homelessness. Placement through [facility] will take some time and pt will need to remain in the hospital while [facility] referr al is processed due to [facility] possibly being unable to maintain contact with pt in community d ue to transient lifestyle. Pt will need to be continent and without need for sitter/restrain ts to d/c to [facility]. Chart Review: Pt is a 56 yo who is homeless and has [place] Medicaid. Order for readmi ssion risk. MD is requesting placement in a SNF or AFH. Barrier to SNF placement will be [place] edicaid and homelessness. SW also completed a [facility] referral and faxed to [facility]. SW requested help with finding permanent placement for pt due to his readmission risk and TBI. SW also faxed referral to [facility] respite bed as well for placement. Allison, Mitali Casarez RN - 03/18/2017 12:01 PM PSTSBRIANI assistant case manager received referral. Clinical information reviewed. Will discuss with Dr. Hawkins and follow progress for discharge recommendations.Electronically signed by: Mitali Robertson RN 03/18/2017 12:01 Anjum Mendez MD - 03/17/2017 2:19 PM PSTFormatting of this note might be different from the orig inal. Patient: Berlin Temple Date of : 1960 Admit Date: 03/15/2017 Date of Service: 03/17/2017 PCP: [facility] Day: 0 Hospital Course: 56-year-old man with recent traumatic brain injury with intracranial hemorrhage on 02/05 re quiring surgical evacuation. The patient was hospitalized for one month at [facility] He underwent decompressive craniectomy and was discharged without a bone flap in place. He has a 3 month follow-up for cranioplasty. Since his discharge on 03/08 from [facility] the patient has been in and out of emergency departments [facility] [place] well as [facility]. His discharge is usually to the local [facility] because the patient is h omeless. He has a history of alcohol abuse and per records most recently drank 3 days ago. He presents to the emergency department here at [facility] on 05/15 after being seen at [facility] on the same day. His chief complaint was headache, dizziness and weakness. He suffered a fall in the emergency department here at [facility]. In the ED he was found to have waxing and waning alertness. Observation admission for acut e encephalopathy, fall and discharge safe planning. Assessment and Plan: Assessment of active problems addressed today: Acute on chronic Encephelopathy Pt with waxing/waning mental status. In review of his records this has happened during prio r admissions. CT head imaging of the pain at different times over the last couple of weeks has shown sign s of midline shift as well as possibility of intermittent herniation. This usually happens w hen the patient is in the supine position and it has been observed that his encephalopathy w orsens with lying flat (pt becomes increasingly unresponsive). Neurosurgery at [facility](dr Horner ) was consulted, and feels pt needs to be seen by his primary NS, Dr Breaux, and that his cu rrent symptoms will likely not resolve until pt has repair of craniectomy with prosthesis. I Have spoken with dr Breaux, who states that repair of craniectomy with prosthesis cannot rodriguez ppen until patient is in stable environment for 4-6 weeks in order to have pre-op appts, sca ns and insurance authorization. Neither Dr Breaux(neurosurgery) or Dr Kemp(hospitalist) w ere willing to take patient back to their facility as an inpatient, citing that pt problems were chronic and surgery not feasible until he has a stable discharge disposition. I have di scussed with weekend admin, Masoud, who did not indicate he would seek to discuss pt transfer b [facility] to [facility], though pt presented to our ER only hours after discharging from [facility] on 03/15/17. I feel patient was unsafely discharged from [facility], as he he has been unable to even stand independently since admission to our ER. Will discuss further with administration on Saturday. Plan: keep the head of bed elevated. Traumatic brain injury Admission at [facility] from 02/05-03/08, and again 03/13 to 03/15 after erick VARELA bouncebacks in [facility]. Status post decompressive craniectomy. Discharged without bone flap in place. He has a p artial left-sided hemiparesis as a result of the injury 3 month follow-up for cranioplasty was planned with Dr Breaux. The patient is on Keppra for seizure prophylaxis, this will be continued Concern for intermittent positional herniation signs as detailed above. Alcohol abuse The patient states that he has not had any alcohol for several days prior to this admission . Liver enzymes within normal limits Blood alcohol level negative Alcohol withdrawal protocol initiated with appropriate vitamins Tobacco abuse Nicotine patch ordered to avoid nicotine withdrawal Smoking cessation will be encouraged Fall This unfortunately occurred in the emergency department due to patient weakness and poor ba catherine due to sequella of his brain injury. The patient has significant left-sided weakness secondary to traumatic brain injury. He has not done well with discharge to the [facility] given as he is unable to take appropriate care of himself and has hx of being homeless. Social work consultation for discharge planning as the patient is unsafe/to weak to care fo r himself. PT/OT consults in place. Hypokalemia Replace orally. F/up BMP. Hyperglycemia Pt with FSBS in high 100s. Will start carb control diet, get a1c, qac/hs fsbs and SSI as n eeded. Active Hospital Problems Diagnosis Acute encephalopathy Traumatic brain injury Alcohol abuse Nicotine abuse Fall Homelessness Resolved Hospital Problems Diagnosis No resolved problems to display. I have reviewed and updated the problem list. Disposition: ? CODE STATUS: Full Code DVT prophylaxis: SCDs Subjective: CC: "i think I need more pain meds" Pt reports diffuse pain, asks for meds frequently, but is often sleeping when nursing retur ns with meds. PT was unable to get pt up independently with walker. Review of Systems Reason unable to perform ROS: pt mildy encephalopathic, uncooperative wt ROS. Objective: Vital Signs 03/15 0700 - 03/16 0659 03/16 07 - 03/17 0659 03/17 0700 - 03/17 1419 Most Rec ent Temp (C) 36.3 - 36.8 36.3 - 36.7 36.4 - 36.8 36.8 (98.2) Pulse 54 - 74 68 - 79 76 76 Resp 16 - 18 14 - 16 16 16 BP 121/68 - 135/86 109/76 - 122/72 118/70 - 124/83 118/70 SpO2 (%) 97 - 100 94 - 98 95 - 96 95 Weight (kg) 81.6 I/O last 3 completed shifts: In: 540 [P.O.:540] Out: 975 [Urine:975] Wt Readings from Last 3 Encounters: 03/15/17 81.6 kg (180 lb) Active Lines PIV Line Peripheral IV Line - Single Lumen 03/15/171953 Right Forearm pcyw-zey-komrlh catheter sys tem 20 gauge 1 day Active Tubes/Drains No matching active lines, drains, or airways Physical Exam Constitutional: He appears well-developed. HENT: Abnormal cranium, helmet in place Eyes: Conjunctivae are normal. Pupils are equal, round, and reactive to light. Neck: Normal range of motion. Neck supple. Cardiovascular: Normal rate and regular rhythm. Pulmonary/Chest: Effort normal and breath sounds normal. Abdominal: Soft. Bowel sounds are normal. Musculoskeletal: L>R weakness Neurological: He is alert. trying to get up with PT, but unable to stand independently with walker. Skin: Skin is warm. Capillary refill takes less than 2 seconds. Psychiatric: mildy encephalopathic Nursing note and vitals reviewed. 24 HOUR LABS: Recent Results (from the past 24 hour(s)) Basic Metabolic Panel Result Value Ref Range NA 139 135 - 145 mmol/L K 3.3 (L) 3.5 - 5.0 mmol/L CL 102 99 - 109 mmol/L CO2 28 21 - 28 mmol/L GLUCOSE 198 (H) 65 - 99 mg/dL BUN 6 (L) 8 - 25 mg/dL Creatinine, Serum/Plasma 0.72 0.70 - 1.30 mg/dL CALCIUM 9.1 8.5 - 10.2 mg/dL ANION GAP 9 5 - 16 mmol/L Estimated GFR >60 >60 ml/min/1.73m2 No results found for: POCGLU All pertinent labs and imaging have been reviewed. Please refer to the Assessment and Plan for details on management. I spent 39 minutes with the patient and on the patient's unit, with over 50% spent in coun seling and/or coordination of care. Please refer to the Assessment and Plan for details. Electronically signed by: Anjum Garcia MD 03/17/2017 14:19 Portions of this chart may have been created with abeo voice recognition software. Occasi onal wrong-word or sound-alike substitutions may have occurred due to the inherent vaughn itations of voice recognition software. Please read the chart carefully and recognize, using context, where these substitutions have occurred Anjum Mendez MD - 03/16/2017 4:39 PM PSTFormatting of this note might be different fro m the original. Patient: Berlin Temple Date of : 1960 Admit Date: 03/15/2017 Date of Service: 03/16/2017 PCP: [facility] Day: 0 Hospital Course: 56-year-old man with recent traumatic brain injury with intracranial hemorrhage on 02/05 re quiring surgical evacuation. The patient was hospitalized for one month at [facility] He underwent decompressive craniectomy and was discharged without a bone flap in place. He has a 3 month follow-up for cranioplasty. Since his discharge on 03/08 from [facility] the patient has been in and out of emergency departments [facility] [place] well as [facility]. His discharge is usually to the local [facility] because the patient is h omeless. He has a history of alcohol abuse and per records most recently drank 3 days ago. He presents to the emergency department here at [facility] on 05/15 after being seen at [facility] on the same day. His chief complaint was headache, dizziness and weakness. He suffered a fall in the emergency department here at [facility]. In the ED he was found to have waxing and waning alertness. Observation admission for acut e encephalopathy, fall and discharge safe planning. Assessment and Plan: Assessment of active problems addressed today: Acute on chronic Encephelopathy Pt with waxing/waning mental status. In review of his records this has happened during prio r admissions CT head imaging of the pain at different times over the last couple of weeks has shown sign s of midline shift as well as possibility of intermittent herniation. This usually happens w hen the patient is in the supine position and it has been observed that his encephalopathy w orsens with lying flat(pt becomes increasingly unresponsive). Neurosurgery at [facility](dr Horner) was consulted, and feels pt needs to be seen by his primary NS, Dr Breaux, and that his cur rent symptoms will likely not resolve until pt has repair of craniectomy with prosthesis. I Have spoken with dr Breaux, who states that repair of craniectomy with prosthesis cannot hap pen until patient is in stable environment for 4-6 weeks in order to have pre-op appts, scan s and insurance authorization. Neither Dr Breaux(neurosurgery) or Dr Kemp(hospitalist) we re willing to take patient back to their facility as an inpatient, citing that pt problems w ere chronic and surgery not feasible until he has a stable discharge disposition. I have dis cussed with weekend admin, Masoud, who did not indicate he would seek to discuss pt transfer ba to [facility], though pt presented to our ER only hours after discharging from [facility] o n 03/15/17. Plan: keep the head of bed elevated. Traumatic brain injury Admission at [facility] from 02/05-03/08 Status post decompressive craniectomy. Discharge without bone flap in place. He has a partial left-sided hemiparesis as a result of the injury 3 month follow-up for cranioplasty was planned The patient is on Keppra for seizure prophylaxis, this will be continued Concern for intermittent positional herniation signs as detailed above. Alcohol abuse The patient states that he has not had any alcohol for the last couple of days Currently not intoxicated Liver enzymes within normal limits Blood alcohol level negative Alcohol withdrawal protocol initiated with appropriate vitamins Tobacco abuse Nicotine patch ordered to avoid nicotine withdrawal Smoking cessation will be encouraged Fall This unfortunately occurred in the emergency department The patient has significant left-sided weakness secondary to traumatic brain injury He has not done well with discharge to the [facility] given as he is unable to take appropriat e care of himself He is homeless Social work consultation for discharge planning as the patient is at very high risk for enrrique dmission Physical therapy evaluation to assess for safe discharge planning Active Hospital Problems Diagnosis Acute encephalopathy Traumatic brain injury Alcohol abuse Nicotine abuse Fall Homelessness Resolved Hospital Problems Diagnosis No resolved problems to display. I have reviewed and updated the problem list. Disposition: ? CODE STATUS: Full Code DVT prophylaxis: SCDs Subjective: CC: grunting Pt not responding to verbal, tactile stim except for intermittent grunted answers, then fal ls back asleep. Pt positioned at 45 degrees in bed, as he becomes unresponsive laying down. CT head last nite shows positional herniation. Pt presented to our ER hours after being d/c from [facility](where he has been hospitalized for a month since feb 05, and all his care for his has been through their facility. I have spent a total of 2 hours and 30 min in sigifredo luation of patient(noon until 2:30pm), going through [facility] records, multiple phone calls to 2 separate neurosurgeons at both [facility] and [facility], a [facility] hospitalist, bed contro l at [facility] and [facility], job honer clinical nursing intern in regards to pt admission and complex discha rge needs as well as social work. Review of Systems Reason unable to perform ROS: encephalopathy. Objective: Vital Signs 03/14 0700 - 03/15 0659 03/15 0700 - 03/16 0659 03/16 0700 - 03/16 1639 Most Rec ent Temp (C) 36.3 - 36.8 36.5 - 36.7 36.6 (97.9) Pulse 54 - 74 73 - 79 73 Resp 16 - 18 14 - 16 16 BP 121/68 - 135/86 109/76 - 118/78 118/78 SpO2 (%) 97 - 100 94 - 98 94 Weight (kg) 81.6 I/O last 3 completed shifts: In: - Out: 250 [Urine:250] Wt Readings from Last 3 Encounters: 03/15/17 81.6 kg (180 lb) Active Lines PIV Line Peripheral IV Line - Single Lumen 03/15/171953 Right Forearm deco-fhp-gjwagx catheter sys tem 20 gauge less than 1 day Active Tubes/Drains No matching active lines, drains, or airways Physical Exam Constitutional: He appears well-developed and well-nourished. HENT: Concave R front-parietal on head due to craniectomy. Eyes: Pupils are equal, round, and reactive to light. Neck: Normal range of motion. Cardiovascular: Normal rate and regular rhythm. Pulmonary/Chest: Effort normal and breath sounds normal. Abdominal: Soft. Bowel sounds are normal. Musculoskeletal: L hemiplegia Neurological: Poorly responsive to verbal/tactile stim, falls back asleep quickly Skin: Capillary refill takes less than 2 seconds. Psychiatric: Waxing/waning MS per staff. Nursing note and vitals reviewed. 24 HOUR LABS: Recent Results (from the past 24 hour(s)) Magnesium Result Value Ref Range MG 1.7 1.7 - 2.4 mg/dL Phosphorus Result Value Ref Range PHOSPHORUS 4.0 2.3 - 4.8 mg/dL No results found for: POCGLU All pertinent labs and imaging have been reviewed. Please refer to the Assessment and Plan for details on management. I spent 2 hours and 30 minutes with the patient and on the patient's unit, with over 50% s pent in counseling and/or coordination of care. Please refer to the Assessment and Plan for details. Electronically signed by: Anjum Garcia MD 03/16/2017 16:39 Portions of this chart may have been created with abeo voice recognition software. Occasi onal wrong-word or sound-alike substitutions may have occurred due to the inherent vaughn itations of voice recognition software. Please read the chart carefully and recognize, using context, where these substitutions have occurred Dylan Shelley, Pattern Filer - 03/16/2017 12:48 PM PSTFormatting of this note might be differen t from the original. PHARMACY SERVICES: ADMISSION MEDICATION HISTORY Berlin Temple is a 56 y.o. male admitted on 03/15/2017 14:53. The primary encounter diagno sis was Acute encephalopathy. Diagnoses of Alcohol abuse, Traumatic brain injury, without lo ss of consciousness, subsequent encounter, Fall, initial encounter, Homelessness, and Nicoti ne abuse were also pertinent to this visit. Patient is not a reliable historian and medication history was difficult to obtain. Pt sta sundeep that he only takes medications when he is in a hospital. WORKERS COMPENSATION CLAIMS SPECIALIST list reflects current med list from [facility]. Patient s prior to admit medications and over the counter (OTC) medications/herbal supple ments list obtained from interview with patient, Deakindred hospitaless, and CT Prescription Monitoring P harriet. Total # of Prior to Admission Meds: 4 Noted Medication Discrepancies or Medication-related Issues Dosage change: none Medication added: none Removed therapy: nicotine patch (pt states he only uses when he's in the hospital) WORKERS COMPENSATION CLAIMS SPECIALIST Medications Prior to Admission medications Medication Sig atorvaSTATin (LIPITOR) 20 mg tablet Take 20 mg by mouth nightly. escitalopram (LEXAPRO) 10 mg tablet Take 10 mg by mouth Daily. levETIRAcetam (KEPPRA) 500 mg tablet Take 500 mg by mouth 2 times daily. zolpidem (AMBIEN) 5 mg tablet Take 5 mg by mouth nightly as needed for Insomnia. Allergies Patient has no known allergies. Reviewed by Pharmacy? yes Immunizations Vaccines up to date? No Yes No Unsure Refuses Influenza [] [x] [] [] Pneumococcal [] [x] [] [] Tdap [] [x] [] [] WORKERS COMPENSATION CLAIMS SPECIALIST Med List Sources Medications reported by the patient were confirmed via: [x] Verbal interview (able to recall drug name, strength, frequency, etc.) [] Provided a complete current medication list [] Medication bottles [] MAR from SNF facilities: [] Pharmacy - list names if received from multiple pharmacies: [] Doctor's office: [] [employer] insurance reported information [] Care Everywhere [x] CT Prescription Monitoring Program [x] Other sources: [facility] Medication history performed and electronically signed by PRICILLA WILKINS, Pharmacy Lorraine h 03/16/2017 12:48 Associated attestation - Ayah Harvey PharmD - 03/16/2017 1:07 PM PSTReviewed WORKERS COMPENSATION CLAIMS SPECIALIST me d list changes and agree with discrepancies noted by hyperbaric technician. Electronically signed by: Merle Martinez PharmD 03/16/2017 13:07 Leif Horner MD - 03/16/2017 7:49 AM PSTDiscussed patient and reviewed films. Leon nt had right craniectomy about 1 month ago. Right edema now resolved but CT shows shift to l eft increased from scan of 03/09. May require replacement of bone graft. Assume this is stor ed at [facility] where surgery occurred. Suggest discussion with [facility] Staff for transfe r to that facility. Marialuisa Cantu MSW - 03/16/2017 7:44 AM PSTDischarge Planning: Pt is a 56 yo who is avelina eless and has [place] Medicaid. SW acknowledged order for readmission risk. MD is reque sting placement in a SNF or [facility]. SW left sticky note for MD requesting PT and OT be ordered before SNF can be pursued. Barrier to SNF placement will be Medicaid and homelessness. SW also completed a [facility] referral and faxed to [facility]. SW requested help with finding permanent placement for pt due to his readmission risk and TBI. SW also faxed referral to [facility] resp[facility] bed as well for placement. They will not review pt for admission until Saturday. Barrier to DC: SNF placement will be difficult due to Medicaid and homelessness. Placement through [facility] will take some time and pt will need to remain in the hospital while [facility] referr al is processed due to [facility] possibly being unable to maintain contact with pt in community d ue to transient lifestyle. [facility] referral will be reviewed on Saturday. However, it appears th at pt ends up being readmitted to hospital once DC to [facility] and therefore this may not be a safe and stable DC. P Joe Hernandez RN - 03/16/2017 12:06 AM PSTAttempted to complete patient admit, pt c/o headache and not cooperative with admission questions. Electronically signed by: Joe Clark RN 03/16/2017 0:06 documented in th is encounter H&P Notes Piedad Ruiz MD - 03/16/2017 12:59 AM PSTFormatting of this note might be different fr om the original. Patient: Berlin Temple Date of : 1960 Admit Date: 03/15/2017 Date of Service: 03/16/2017 PCP: [facility] Assessment and Plan: 56-year-old man with recent traumatic brain injury with intracranial hemorrhage on 02/05 re quiring surgical evacuation. The patient was hospitalized for one month at [facility] He underwent decompressive craniectomy and was discharged without a bone flap in place. He has a 3 month follow-up for cranioplasty. Since his discharge on 03/08 from [facility] the patient has been in and out [place] emergency [place] [facility] [place] [facility]. His [facility] usually to the local [facility] because the patient is h omeless. He has a history of alcohol abuse and per records most recently drank 3 days ago. He presents to the emergency department here at [facility] on 05/15 after being seen at [facility] on the same day. His chief complaint was headache, dizziness and weakness. He suffered a fall in the emergency department here at [facility]. In the ED he was found to have waxing and waning alertness. Observation admission for acut e encephalopathy, fall and discharge safe planning. Assessment and plan: 1. Acute encephalopathy In the emergency department the patient had waxing and waning alertness. In review of his records this has happened during prior admissions CT head imaging of the pain at different times over the last couple of weeks has shown sign s of midline shift as well as possibility of intermittent herniation. This usually happens when the patient is in the supine position and it has been observed that his encephalopathy worsens with lying flat. The question was raised whether the patient is experiencing positional symptoms of herniati on that are actually being picked up on CT that improve with elevation of the head of bed. This could be discussed with neurosurgery in the morning For now I will keep the head of bed elevated 2. Traumatic brain injury Admission at [facility] from 02/05-03/08 Status post decompressive craniectomy. Discharge without bone flap in place. He has a partial left-sided hemiparesis as a result of the injury 3 month follow-up for cranioplasty was planned The patient is on Keppra for seizure prophylaxis, this will be continued Concern for intermittent positional herniation signs as detailed above, this could be discu ssed with neurosurgery 3. Alcohol abuse The patient states that he has not had any alcohol for the last couple of days Currently not intoxicated Liver enzymes within normal limits Blood alcohol level negative Alcohol withdrawal protocol initiated with appropriate vitamins 4. Tobacco abuse Nicotine patch ordered to avoid nicotine withdrawal Smoking cessation will be encouraged 5. Fall This unfortunately occurred in the emergency department The patient has significant left-sided weakness secondary to traumatic brain injury He has not done well with discharge to the [facility] given his inability to take appropriate care of himself He is homeless Social work consultation for discharge planning as the patient is at very high risk for enrrique dmission Physical therapy evaluation to assess for safe discharge planning Active Hospital Problems Diagnosis Acute encephalopathy Traumatic brain injury Alcohol abuse Nicotine abuse Fall Homelessness Resolved Hospital Problems Diagnosis No resolved problems to display. CODE STATUS: Full code DVT prophylaxis: compression stockings Chief Complaint: Dizziness, weakness, fall History of Present Illness: 56-year-old man with recent traumatic brain injury with intracranial hemorrhage on 02/05 re quiring surgical evacuation. The patient was hospitalized for one month at [facility] He underwent decompressive craniectomy and was discharged without a bone flap in place. He has a 3 month follow-up with neurosurgery for cranioplasty. Since his discharge on 03/08 from [facility] the patient has been in and out of emergency departme [place]ts [place] [facility] [place] [facility]. [facility] the patient is homeless. He has a history of alcohol abuse and per records most recent ly drank 3 days ago. He presents to the emergency department here at [facility] on 05/15 after being seen at [facility] on the same day. His chief complaint was headache, dizziness and weakness. He suffered a fall in the emergency department here at [facility]. Since his traumatic brain injury he has had left-sided weakness and has a diff icult time taking care of himself. He is complaining of weakness and dizziness as well as a headache which comes and goes. In the ED he was found to have waxing and waning alertness. Observation admission for acut e encephalopathy, fall and discharge safe planning. Review of Systems: As per HPI. The remainder of a 10 point review of systems is otherwise negative or non-cont ributary to the current admission. History: Past Medical History: Diagnosis Date Alcoholism (HCC) Cerebral edema (HCC) with midline shift Hematoma R TEMPORAL LOBE Homeless S/P percutaneous endoscopic gastrostomy (PEG) tube placement (HCC) Subdural hematoma (HCC) INTERHEMISPHERIC Traumatic subarachnoid hemorrhage (HCC) No past surgical history on file. Social History Social History Marital status: Single Spouse name: N/A Number of children: N/A Years of education: N/A Occupational History Not on file. Social History Main Topics Smoking status: Current Every Day Smoker Types: Cigarettes Smokeless tobacco: Not on file Alcohol use Yes Comment: alcoholism pt not specific on use Drug use: Unknown Sexual activity: Not on file Other Topics Concern Not on file Social History Narrative No narrative on file No family history on file. No Known Allergies Outpatient Medications atorvaSTATin (LIPITOR) 20 mg tablet (Taking) Take 20 mg by mouth nightly. escitalopram (LEXAPRO) 10 mg tablet (Taking) Take 10 mg by mouth Daily. levETIRAcetam (KEPPRA) 500 mg tablet (Taking) Take 500 mg by mouth 2 times daily. NICOTINE TD (Taking) Place onto the skin. zolpidem (AMBIEN) 5 mg tablet (Taking) Take 5 mg by mouth nightly as needed for Insomnia. Physical: Vital Signs 03/13 0700 - 03/14 0659 03/14 07 - 03/15 0659 03/15 07 - 03/16 0106 Most Rec ent Temp (C) 36.6 - 36.7 36.7 (98.1) Pulse 54 - 74 59 Resp 16 - 18 16 BP 121/68 - 135/86 121/68 SpO2 (%) 97 - 100 100 Weight (kg) 81.6 81.6 kg (180 lb) Wt Readings from Last 3 Encounters: 03/15/17 81.6 kg (180 lb) General appearance - arouses to verbal stimuli, follows basic commands Mental status - he knows his name and knows that he is at the hospital Eyes - left pupil is dilated and not reactive to light, the right pupil is round and reacti ve Head large right parietal defect covered by skin, but skull removed Mouth - mucous membranes moist, pharynx normal without lesions Neck - supple, no significant adenopathy Chest - clear to auscultation, no wheezes, rales or rhonchi, symmetric air entry Heart - normal rate, regular rhythm, normal S1, S2, no murmurs, rubs, clicks or gallops Abdomen - soft, nontender, nondistended, no masses or organomegaly Neurological - significant left-sided weakness, difficulty following complex commands, waxi ng and waning alertness, large unresponsive left pupil Musculoskeletal - no joint tenderness, deformity or swelling Extremities - peripheral pulses normal, no pedal edema, no clubbing or cyanosis Skin - normal coloration and turgor, no rashes, no suspicious skin lesions noted Labs and Imaging: Recent Results (from the past 24 hour(s)) CBC with Differential Result Value Ref Range WBC 8.4 3.8 - 11.0 K/uL RBC 4.25 4.20 - 5.70 M/uL Hgb 12.7 (L) 13.2 - 17.0 g/dL Hct 37.5 (L) 39.0 - 50.0 % MCV 88.2 80.0 - 100.0 fL MCH 29.9 27.0 - 34.0 pg MCHC 33.9 32.0 - 35.5 g/dL RDW-CV 15.6 (H) 11.0 - 15.5 % Platelet Count 197 150 - 400 K/uL Differential Type Automated % Neutrophils 77.3 (H) 40.0 - 75.0 % % Lymphocytes 14.6 (L) 15.0 - 48.0 % % Monocytes 7.2 0.0 - 12.0 % % Eosinophils 0.4 0.0 - 7.0 % % Basophils 0.5 0.0 - 2.0 % Absolute Neutrophils 6.50 1.90 - 7.40 K/uL Absolute Lymphocytes 1.20 1.00 - 3.90 K/uL Absolute Monocytes 0.60 0.00 - 0.80 K/uL Absolute Eosinophils 0.00 0.00 - 0.50 K/uL Absolute Basophils 0.00 0.00 - 0.10 K/uL Comprehensive Metabolic Panel Result Value Ref Range NA 140 135 - 145 mmol/L K 3.3 (L) 3.5 - 5.0 mmol/L CL 101 99 - 109 mmol/L CO2 27 21 - 28 mmol/L GLUCOSE 125 (H) 65 - 99 mg/dL BUN 6 (L) 8 - 25 mg/dL Creatinine, Serum/Plasma 0.56 (L) 0.70 - 1.30 mg/dL CALCIUM 9.2 8.5 - 10.2 mg/dL Total protein 7.5 6.1 - 8.4 g/dL ALBUMIN 3.9 3.5 - 5.0 g/dL BILIRUBIN TOTAL 0.5 0.1 - 1.5 mg/dL ALK PHOS 90 35 - 115 U/L AST 38 10 - 45 U/L ALT 38 10 - 65 U/L ANION GAP 12 5 - 16 mmol/L Estimated GFR >60 >60 ml/min/1.73m2 Drugs of Abuse, Screen, Urine Result Value Ref Range Cannabinoids Screen, Urine Negative Negative Phencyclidine Screen, Urine Negative Negative Cocaine Metabolites, Ur Negative Negative Methamphetamine Screen, Urine Negative Negative Opiate Screen, Urine Negative Negative Amphetamine Screen, Urine Negative Negative Benzodiazepines Screen, Urine Negative Negative TRICYCLICS UR. Negative Negative Methadone Screen, Urine Negative Negative Barbiturates Screen, Urine Negative Negative OXYCODONE, UR Negative Negative Porpoxyphene Screen, Urine Negative Negative Buprenorphine Screen, Urine Negative Negative Ethanol Result Value Ref Range Ethanol Lvl None Detected (<10 mg/dL) None Detected (<10 mg/dL) mg/dL ALCOHOL, SERUM/PLASMA None Detected (<0.010 g/dL) None Detected (<0.010 g/dL) g/dL Urinalysis With Microscopic Result Value Ref Range COLOR Yellow CLARITY Clear GLUCOSE UA Negative Negative mg/dL BILIRUBIN UA Negative Negative KETONES UA Negative Negative mg/dL Specific [place] 1.013 1.001 - 1.030 PH UA 7.0 5.0 - 7.5 PROTEIN UA Negative Negative mg/dL UROBILINOGEN UA 2.0 (H) <2.0 mg/dL NITRITE UA Negative Negative BLOOD UA Negative Negative LEUKOCYTES ESTERASE UA Negative Negative WBC UA <1 <6 /hpf RBC UA 3 (H) <3 /hpf BACTERIA UA None seen /hpf SQUAMOUS EPITHELIAL UA Not clinically significant. /lpf MUCUS UA Present (A) None seen /lpf AMORPHOUS CRYSTALS Present (A) None seen /hpf Extra Hold Tube(s) Result Value Ref Range Extra Tube SST DEMI Ct Head Wo Contrast Result Date: 03/15/2017 CT HEAD WITHOUT CONTRAST CLINICAL INFORMATION: Dizziness and weakness. COMPARISON: D W/O da xochitl 02/08/2017 PROCEDURE: Axial images were obtained through the head without IV contrast. M ultiplanar reformations were obtained from the acquisition data. At least one of the followi ng CT dose optimization techniques were used: Automated exposure control; Adjustment of mA a nd/or kV according to patient size; Use of iterative reconstruction technique. FINDINGS: Bra in: Encephalomalacia of the right anterior temporal lobe, unchanged. Hypoattenuation presen t within the right temporal, parietal and posterior frontal lobes, unchanged, possibly relat ed to previous surgery or hemorrhages. No acute intracranial hemorrhage. There is 8 mm of l eftward midline shift at the septum pellucidum which is increased since 03/13/2017 but decre ased since 03/12/2017. Ventricles and extra-axial fluid spaces: Normal. Paranasal sinuses an d mastoid air cells: Mastoid air cells are non pneumatized Calvarium and extracranial soft t issues: Large right craniectomy. Left frontal scalp lipoma. Orbits: Old right medial orbital wall blowout fracture. IMPRESSION: 1. No acute intracranial abnormality. Mild edema or gl iosis of the right posterior frontal, temporal and parietal cortex. Stable appearance of si nce 03/12/2017. 2. Large right craniectomy. Encephalomalacia of the right temporal lobe 8 m m of leftward midline shift at the septum pellucidum which may be positional given increased since 03/13/2017 and decreased since 03/12/2017. Signed by: Master Thomas This patient will be placed in observation status. I spent 70 minutes with the patient and on the patient's unit, with over 50% spent in couns eling and/or coordination of care. Please refer to the Assessment and Plan for details. Electronically signed by: Piedad Ruiz MD 03/16/2017 1:06 Portions of this chart may have been created with abeo voice recognition software. Occasi onal wrong-word or sound-alike substitutions may have occurred due to the inherent vaughn itations of voice recognition software. Please read the chart carefully and recognize, using context, where these substitutions have occurred documented in this e ncounter ED Notes Leslie Madrigal, RECREATION DIRECTOR - 03/15/2017 8:25 PM PSTSocial Work ER MD requesting assistance for d/c planning. Pt would benefit from placement that provi jeffrey supervision. Pt has recent hx of traumatic intracerebral hemorrhage on 02/05/17. Pt rodriguez s had a rt. Craniectomy. [place] [facility] [place] [facility] where pt fell and wa s brought in for evaluation. Pt states he his his head. When MD when into to room, pt was unable to coordinate urinating and holding a urinal and was urinating on himself, without an y knowledge of what was occurring. Pt is being admitted. Met briefly with pt. Pt states homeless for 25+ years, states no family, no friends. Pt would like assistance with placement. SW following for d/c planning. NIRAJ Esposito Nasreen Palmer RN - 03/15/2017 6:54 PM PSTAdmit Special Needs and Report Note Special Needs Isolation Type: None Isolation suspected risk: History of OR Active MRSA/VRE/MDRO: R/O C-diff: R/O TB: Needs a Sitter: Close to Nurses Station/confusion or impulsive: Pt has not been trying to get OOB, but pt i s confused and does not call for assistance or help. Pt fall risk and should be using his sa fety helmet when he is up ambulating. Pt aware he needs to wear his helmet with ambulating. Pt not steady on feet. Restraints in use: Bariatric Bed: Dialysis Patient: Transplant Patient (specify type): Mechanical Heart or LVAD: On Bipap: CIWA/COWS: Seizure precautions: If no special needs, type none here: Report Note Currently infusing meds/drips: none Mobility Status: Pt moves legs and rt arm purposefully, L arm not observed to be used by pt . Orientation Status: Confused to situation, place, and time If on Tele, why? Last ED Vitals: Temp: 36.6 C (97.8 F) Pulse: 65 Resp: 18 BP: 135/86 SpO2: 98 % Brief 60 sec summary: Pt was seen at [facility] today and released. Pt wears a helmet around to protect his skull. Pt has large indented skull and is here today for dizziness, weakness and altered mental status. Pt has hx of large traumatic intracerebral hemorrhage on February 05 and on March 08 had a decompressive craniotomy. Pt currently c/o headache which h e says is an "11" out of 10. Pt admits he is homeless and noted to incontinent of urine. Pt has L upper quadrant peg tube. RN Name: Nasreen Warren RN Callback phone number: [phone] George Wallace MD - 03/15/2017 3:02 PM PST eMERGENCY dEPARTMENT eNCOUnter Patient Name: Berlin Temple : 1960 Medical Record: [id number] ED20/ED20 CHIEF COMPLAINT Chief Complaint Patient presents with Dizziness Weakness HPI 15:02: Berlin Temple is a 56 y.o. male with a history of traumatic intracerebral hemorrhag e on 02/05/17 who presents with an altered mental status. The patient [place] [facility] [place] with the same complaints. At this time head CT did not show any acute findings. Karen hodges to [facility] [place] the patient was [facility] with [facility] and instruct ed to follow up with neurosurgery. This afternoon, the patient reportedly fell at the [facility] and was brought in for evaluation. The patient is unable to tell us what he did after leaving [facility] last night. He states that he hit his head but does not elaborate on this. The patient has a history of alcohol abuse but denies using this today. History is extremely limited secondary to the patients mental status. PAST MEDICAL HISTORY Traumatic brain injury Alcoholism SURGICAL HISTORY Craniotomy CURRENT MEDICATIONS Unknown ALLERGIES No Known Allergies FAMILY HISTORY Patient unable to provide. SOCIAL HISTORY Social History Social History Marital status: Single Spouse name: N/A Number of children: N/A Years of education: N/A Social History Main Topics Smoking status: Not on file Smokeless tobacco: Not on file Alcohol use Yes, alcoholism Drug use: Unknown Sexual activity: Not on file Other Topics Concern Not on file Social History Narrative No narrative on file REVIEW OF SYSTEMS A 10 + review of systems was completed and are negative except as listed in the HPI. PHYSICAL EXAM VITAL SIGNS: (first vital signs):Temp: 36.6 C (97.8 F) Pulse: 74 Resp: 18 SpO2: 99 % BP : (!) 129/91 SpO2 has been reviewed by me and is consistent with normal oxygenation on room air. Constitutional: Non-toxic appearance. Patient frequently rubbing the right side of his head. HENT: Craniectomy right-sided, no signs of acute injury or bleed. No hematomas. Patient c omplaining is dizzy. Bilateral external ears normal, Oropharynx moist, no tonsiler enlargem ent, exudates, or ulcerations. Nose normal without rhinorrhea. Neck- Normal range of motio n, No tenderness, Supple, No stridor. Eyes: PERRL, EOMI, Conjunctiva normal without discharge. There is no evidence of scleral injection. Respiratory: Normal breath sounds, No respiratory distress, No rales, rhonchi, or wheezing . No reproducible chest tenderness. Cardiovascular: Normal heart rate and rhythm. No rubs, gallops, or murmurs. GI: Abdomen is soft, non-tender. There are normal bowel sounds. Musculoskeletal: Intact distal pulses, No clubbing, cyanosis, or edema. Good range of mot ion in all major joints. No tenderness to palpation or major deformities noted. Back- No ten derness. Integument: Warm and Dry, without evidence of rash or erythema. Lymphatic: No palpable lymphadenopathy noted. Neurologic: Alert, difficult to get a history from. Normal motor function, Normal sensory function, No focal deficits noted. RADIOLOGY Ct Head Wo Contrast Result Date: 03/15/2017 CT HEAD WITHOUT CONTRAST CLINICAL INFORMATION: Dizziness and weakness. COMPARISON: D W/O da xochitl 02/08/2017 PROCEDURE: Axial images were obtained through the head without IV contrast. M ultiplanar reformations were obtained from the acquisition data. At least one of the followi ng CT dose optimization techniques were used: Automated exposure control; Adjustment of mA a nd/or kV according to patient size; Use of iterative reconstruction technique. FINDINGS: Bra in: Encephalomalacia of the right anterior temporal lobe, unchanged. Hypoattenuation presen t within the right temporal, parietal and posterior frontal lobes, unchanged, possibly relat ed to previous surgery or hemorrhages. No acute intracranial hemorrhage. There is 8 mm of l eftward midline shift at the septum pellucidum which is increased since 03/13/2017 but decre ased since 03/12/2017. Ventricles and extra-axial fluid spaces: Normal. Paranasal sinuses an d mastoid air cells: Mastoid air cells are non pneumatized Calvarium and extracranial soft t issues: Large right craniectomy. Left frontal scalp lipoma. Orbits: Old right medial orbital wall blowout fracture. IMPRESSION: 1. No acute intracranial abnormality. Mild edema or gl iosis of the right posterior frontal, temporal and parietal cortex. Stable appearance of si nce 03/12/2017. 2. Large right craniectomy.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 Goal: Care Team Goals & Evaluation PROBLEM-RELATED GOALS: 1. Fall: Pt will remain free from fall by 03/23/2017 or through Hospital stay. 2. Skin: Pt will remain free from new wounds by 03/23/2017 or through Hospital stay. STRATEGY TO ACHIEVE GOALS: 1. Fall: Alarms will be set all time. Pt will understand how to use the call button appropriately. Round checks will be performed q1hr. 2. Skin: Skin will be check q4hr or PRN for redness or swelling. 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 Alert to lethargic and oriented to all but year and some situational. 2 x max assist to chair d/t impulsivity and LS deficits. LUE fla ccid and LLE weak. R bone flap out. R pupil dilated and fixed. Helmet on when OOB. Tray set up for meals, up to chair, occasional incontinence. TeleSitter discontinued and Sitter provi ded. [place] 5mg Q8H for c/o RODRIGUEZ pain. CIWA score not high enough to medicate for. Denies n/t b ut mild impairment noted to LS. No c/o nausea/SOB. Neuro See above NIH Stroke Scale Total Score Tele Yes: [] What is the rhythm: Diet Active Orders Diet Diet consistent carb; thin liquids allowed; Effective Now How patient takes medications: Whole or IV Mobility/Braces/HRF Interventions: Bed alarm, turn Q2, sitter, 2 x max assist to chair f or meals. Last bowel movement: Restraints NA TeleSitter or Bedside Sitter Sitter Discharge plan Ongoing - SW following lan of Care - Tiana son, Poonam Snyder RN - 03/17/2017 2:21 PM PST Problem: Patient Care Overview (Adult) Goal: Care Team Goals & Evaluation PROBLEM-RELATED GOALS: 1. Fall: Pt will remain free from fall by 03/23/2017 or through Hospital stay. 2. Skin: Pt will remain free from new wounds by 03/23/2017 or through Hospital stay. STRATEGY TO ACHIEVE GOALS: 1. Fall: Alarms will be set all time. Pt will understand how to use the call button appropriately. Round checks will be performed q1hr. 2. Skin: Skin will be check q4hr or PRN for redness or swelling. 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 CIWA 1-15. Pain to head-Day[place]. Encourage pt not to lay on r side of head. Pt became very agitated with CIWA score of 15 at ~1030 and received 1 mg Ativan. Telesitter in room however w/ the nature of dx and impuls ivity a 1:1 sitter was brought in to prevent a fall to head. Fall pads on floor at bedside. VSS. Neuro L side wkns. L arm flaccid NIH Stroke Scale Total Score Tele Yes: [] What is the rhythm: Diet Active Orders Diet Diet general; nectar thick; Effective Now How patient takes medications: Whole with thins Mobility/Braces/HRF Interventions: 2 max asst, no device, L knee abram. Last bowel movement: Restraints N/A TeleSitter or Bedside Sitter Telesitter Discharge plan TBD lan of Care - Giovanna Cárdenas RN - 03/17/2017 12:56 PM PSTMet with patient to discuss the Hospitalist yamilka alanis in their care. Confirmed PCP as someone at [facility]. Verified that H&P was sent to [facility], notified patient that this was done. Discharge plan pending, CTC to follow. 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 Helmet in room-to be on when oob or laying on R side. Homeless, ETOH abuse-CIWA. Norc o for RODRIGUEZ pain. Neuro A/O except for exact day of the month. LUE flaccid and LLE weak NIH Stroke Scale Total Score Tele Yes: [] What is the rhythm: Diet Active Orders Diet Diet general; nectar thick; Effective Now How patient takes medications: Whole with nectar thick or carrier Mobility/Braces/HRF Interventions: Bed alarm on, assist with turning, Has not been oob yet Last bowel movement: incontinence/attends on, uses bsu at times Restraints TeleSitter or Bedside Sitter Tele sitter in room, pads on floor due to craniotomy protocol Discharge plan TBD lan of Care - Lennox Boles RN - 03/16/2017 3:42 PM PSTFormatting of this note might be different from t frankie original. Problem: Patient Care Overview (Adult) Goal: Care Team Goals & Evaluation PROBLEM-RELATED GOALS: 1. Fall: Pt will remain free from fall by 03/23/2017 or through Hospital stay. 2. Skin: Pt will remain free from new wounds by 03/23/2017 or through Hospital stay. STRATEGY TO ACHIEVE GOALS: 1. Fall: Alarms will be set all time. Pt will understand how to use the call button appropriately. Round checks will be performed q1hr. 2. Skin: Skin will be check q4hr or PRN for redness or swelling. 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 On 02/05 pt had ICH with craniotomy on 02/05 ([facility]) to R side, bone out-helmet in room, to be on when OOB or when pt lying on R side. CIWA 2-19. [place] for pain working well. 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 CIWA 2-19. Pain to head-[place]. Encourage pt not to lay on r britni e of head. Pt became very agitated with CIWA score of 19 at ~1245 and received 2 mg Ativan. VSS. Pain to head, receiving 5 mg [place]. Diet down-graded to gen with nectars d/t coughing w / thins. Neuro Clearing, A/O NIH Stroke Scale Total Score Tele Yes: [] What is the rhythm: Diet Active Orders Diet Diet general; Effective Now How patient takes medications: Whole with thins Mobility/Braces/HRF Interventions: Helmet on WOB Last bowel movement: Restraints TeleSitter or Bedside Sitter Discharge plan Pending lan of Tahir - Mamie Hurtado RN - 03/16/2017 7:41 AM PSTFormatting of this note might be different from the juanita fang. 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 HX: ETOH abuse, CIWA 9-11. Pain to head-Norc o. Left note on chart to Dr that pt requests more pain meds. Homeless. Has not been oob. Encourage pt not to lay on r side of head. Neuro A/O except for exact day of the month. Follows commands. LUE flaccid and LLE 2/5. NIH Stroke Scale Total Score Tele Yes: [] What is the rhythm: Diet Active Orders Diet Diet general; Effective Now How patient takes medications: Whole/thins Mobility/Braces/HRF Interventions: Bed alarm on, bedrest, assist with turning, Last bowel movement: Restraints TeleSitter or Bedside Sitter Discharge plan Homeless lan of Care - Marialuisa Andre MSW - 03/16/2017 7:27 AM PSTProblem: Patient Care Overview (Adult) Goal: Care Team Goals & Evaluation PROBLEM-RELATED GOALS: STRATEGY TO ACHIEVE GOALS: RESTRAINT-RELATED GOALS: STRATEGIES TO ACHIEVE RESTRAINT GOALS: Goal Evaluation: Risk of readmission ospital Course - Piedad Ruiz MD - 03/16/2017 12:36 AM [id number] man with [facility] with intracranial hemorrhage on 02/05 requiring surgical evacuation. The patient was h ospitalized for one month at [facility]. He underwent decompressive craniecto my and was discharged without a bone flap in place. He has a 3 month follow-up for craniopl asty. Since his discharge on 03/08 from [facility] the patient has been in an [place] [facility] [place] [facility]. His [facility] usually to the local [facility] because the patient is homeless. He has a history of alcohol abuse and per records most recently drank 3 days ago. He presents to the emergency department here at [facility] on 05/15 after being seen at [facility] on the same day. His chief complaint was headache, dizziness and weakness. He suffered a fall in the emergency department here at [facility]. In the ED he was found to have waxing and waning alertness. Observation admission for acut e encephalopathy, fall and discharge safe planning. documented in this encounter Plan of Treatment + +------+--------+ + + | Name | Type | Priori | Associated Diagnoses | Date/Time | | | | ty | | | + +------+--------+ + + | ED INFORMATION | FLACO | Routin | | 03/15/2017 2:06 PM | | EXCHANGE | | e | | PST | + +------+--------+ + + documented as of this encounter Procedures + +--------+ + + + | Procedure Name | Priori | Date/Time | Associated Diagnosis | Comments | | | ty | | | | + +--------+ + + + | POC GLUCOSE | Routin | 03/18/2017 | | Results for this | | | e | 5:33 PM | | procedure are in the | | | | PST | | results section. | + +--------+ + + + | POC GLUCOSE | Routin | 03/18/2017 | | Results for this | | | e | 12:07 PM | | procedure are in the | | | | PST | | results section. | + +--------+ + + + | POC GLUCOSE | Routin | 03/18/2017 | | Results for this | | | e | 7:33 AM | | procedure are in the | | | | PST | | results section. | + +--------+ + + + | POC GLUCOSE | Routin | 03/18/2017 | | Results for this | | | e | 6:19 AM | | procedure are in the | | | | PST | | results section. | + +--------+ + + + | HEMOGLOBIN A1C | Routin | 03/18/2017 | | Results for this | | | e | 4:17 AM | | procedure are in the | | | | PST | | results section. | + +--------+ + + + | BASIC METABOLIC | Routin | 03/18/2017 | | Results for this | | PANEL | e | 4:17 AM | | procedure are in the | | | | PST | | results section. | + +--------+ + + + | POC GLUCOSE | Routin | 03/17/2017 | | Results for this | | | e | 9:26 PM | | procedure are in the | | | | PST | | results section. | + +--------+ + + + | POC GLUCOSE | Routin | 03/17/2017 | | Results for this | | | e | 4:21 PM | | procedure are in the | | | | PST | | results section. | + +--------+ + + + | BASIC METABOLIC | Routin | 03/17/2017 | | Results for this | | PANEL | e | 10:17 AM | | procedure are in the | | | | PST | | results section. | + +--------+ + + + | PHOSPHORUS | Routin | 03/16/2017 | | Results for this | | | e | 1:26 AM | | procedure are in the | | | | PST | | results section. | + +--------+ + + + | MAGNESIUM | Routin | 03/16/2017 | | Results for this | | | e | 1:26 AM | | procedure are in the | | | | PST | | results section. | + +--------+ + + + | CT HEAD WO CONTRAST | STAT | 03/15/2017 | | Results for this | | | | 6:01 PM | | procedure are in the | | | | PST | | results section. | + +--------+ + + + | EXTRA HOLD TUBE(S) | Routin | 03/15/2017 | | Results for this | | | e | 3:24 PM | | procedure are in the | | | | PST | | results section. | + +--------+ + + + | DRUGS OF ABUSE, | STAT | 03/15/2017 | | Results for this | | SCREEN, URINE | | 3:24 PM | | procedure are in the | | | | PST | | results section. | + +--------+ + + + | URINALYSIS WITH | STAT | 03/15/2017 | | Results for this | | MICROSCOPIC | | 3:24 PM | | procedure are in the | | | | PST | | results section. | + +--------+ + + + | CBC WITH | STAT | 03/15/2017 | | Results for this | | DIFFERENTIAL | | 3:24 PM | | procedure are in the | | | | PST | | results section. | + +--------+ + + + | ALCOHOL | STAT | 03/15/2017 | | Results for this | | | | 3:24 PM | | procedure are in the | | | | PST | | results section. | + +--------+ + + + | COMPREHENSIVE | STAT | 03/15/2017 | | Results for this | | METABOLIC PANEL | | 3:24 PM | | procedure are in the | | | | PST | | results section. | + +--------+ + + + | ED INFORMATION | Routin | 03/15/2017 | | | | EXCHANGE | e | 2:06 PM | | | | | | PST | | | + +--------+ + + + +---+--------+ | | | | | Proced | | | ure | | | Note - | | | Miguel, | | | Lab In | | | | | | Hlseve | | | n - | | | 03/15/ | | | 2016 | | | 2:07 | | | PM PST | | | | | | Format | | | ting | | | of | | | this | | | note | | | might | | | be | | | differ | | | ent | | | from | | | the | | | origin | | | al.MIGUEL | | | E?NOTI | | | FICATI | | | ON?11/ | | | | | | 7 | | | 14:05? | | | MAVERICK | | | , | | | ROB | | | L?MRN: | | | | | | [id number] | | | [id number] | | | his | | | patien | | | t has | | | regist | | | ered | | | at the | | | | | | Prov[facility] | | | ence | | | [facility] | | l | | | [facility] | | | | | | Emerge | | | ncy | | | Depart | | | ment | | | For | | | more | | | inform | | | ation | | | visit: | | | | | | https: | | | //prov | | | .ediec | | | arepla | | | [email or web address].com/ | | | patien | | | [id number] | | | [phone] | | | [phone] | | | [phone] | | | [phone] | | | [phone] | | | 13 ED | | | Care | | | Guidel | | | inesTh | | | ere | | | are | | | curren | | | tly no | | | ED | | | Care | | | Guidel | | | deborah | | | in | | | [facility] | | | for | | | this | | | patien | | | t. | | | Please | | | check | | | your | | | facili | | | ty's | | | medica | | | l | | | record | | | s | | | system | | | .Recen | | | t | | | Emerge | | | ncy | | | Depart | | | ment | | | Visit | | | Summar | | | yAdmit | | | Date | | | Facili | | | ty | | | City | | | State | | | Type | | | Major | | | Type | | | Diagno | | | ses or | | | Chief | | | | | | Compla | | | int | | | Nov | | | 17, | | | 2017 | | | Prov[facility] | | | ence | | | [facility] | [place] | | | [place] | | | Emerge | | | ncy | | | Emerge | | | ncy | | | Nov | | | 17, | | | 2017 | | | [facility] | | | ess | | | [facility] | | | [place] | | | [place] | | | Emerge | | | ncy | | | Emerge | | | ncy | | | Chief | | | Compla | | | int: | | | [place] | | | SS | | | Nov | | | 14, | | | 2017 | | | [place] | | | [facility] | | | Commun | | | [facility] | | | | | | [place] | | | [place] | | | Emerge | | | ncy | | | Emerge | | | ncy | | | 0. | | | HEAD | | | INJURY | | | 1. | | | | | | Cerebr | | | al | | | edema | | | 2. | | | Alcoho | | | l | | | depend | | | ence | | | with | | | intoxi | | | cation | | | , | | | unspec | | | ified | | | 2. | | | Hypoth | | | ermia, | | | | | | initia | | | l | | | encoun | | | ter | | | 2. | | | Compre | | | ssion | | | of | | | brain | | | 2. | | | Homele | | | ssness | | | 2. | | | Blood | | | | | | alcoho | | | l | | | level | | | of | | | 20-39 | | | mg/100 | | | ml | | | 2. | | | Other | | | fatigu | | | e Nov | | | 11, | | | 2017 | | | [place] | | | | | | [place] | | | al | | | [facility] | | | [place] | | | [place] | | | Emerge | | | ncy | | | Emerge | | | ncy | | | 0. | | | HEADAC | | | HE | | | Oct | | | 10, | | | 2017 | | | [facility] | | | ess | | | [facility] | | | [place] | | | [place] | | | Emerge | | | ncy | | | Emerge | | | ncy | | | Chief | | | Compla | | | int: | | | FALL | | | AND | | | ETOH | | | Sep | | | 23, | | | 2017 | | | [place] | | | [facility] | | | Commun | | | [facility] | | | | | | [place] | | | [place] | | | Emerge | | | ncy | | | Emerge | | | ncy | | | 0. | | | FLANK | | | PAIN | | | 1. | | | Strain | | | of | | | muscle | | | and | | | tendon | | | of | | | front | | | wall | | | of | | | thorax | | | , | | | initia | | | l | | | encoun | | | ter | | | 2. | | | Alcoho | | | l | | | depend | | | ence, | | | uncomp | | | licate | | | d | | | 2. | | | Other | | | place | | | in | | | other | | | non-in | | | stitut | | | ional | | | reside | | | nce as | | | the | | | place | | | of | | | occurr | | | ence | | | of the | | | | | | leather flesher | | | al | | | cause | | | 2. | | | Other | | | and | | | unspec | | | ified | | | ov | | | 2. | | | Activi | | | ty, | | | other | | | specif | | | ied | | | 2. | | | Nicoti | | | ne | | | depend | | | ence, | | | cigare | | | ttes, | | | uncomp | | | licate | | | d Sep | | | 17, | | | 2017 | | | [place] | | | [facility] | | | Commun | | | [facility] | | | | | | [place] | | | [place] | | | Emerge | | | ncy | | | Emerge | | | ncy | | | 0. | | | HEADAC | | | HE | | | 1. | | | Pain | | | in | | | thorac | | | ic | | | spine | | | 2. | | | Tobacc | | | o use | | | 2. | | | Alcoho | | | l | | | depend | | | ence | | | with | | | intoxi | | | cation | | | , | | | unspec | | | ified | | | 2. | | | Other | | | chroni | | | c pain | | | Sep | | | 15, | | | 2017 | | | [place] | | | [facility] | | | Commun | | | [facility] | | | | | | [place] | | | [place] | | | Emerge | | | ncy | | | Emerge | | | ncy | | | 0. | | | ETOH | | | ABUSE | | | 2. | | | Tobacc | | | o use | | | 2. | | | Assaul | | | t by | | | strike | | | | | | agains | | | t or | | | bumped | | | into | | | by | | | anothe | | | r | | | person | | | , | | | initia | | | l | | | encoun | | | ter | | | Other | | | | | | specif | | | ied | | | injuri | | | es of | | | head, | | | initia | | | l | | | encoun | | | ter | | | 2. | | | Other | | | specif | | | ied | | | places | | | as | | | the | | | place | | | of | | | occurr | | | ence | | | of the | | | | | | leather flesher | | | al | | | cause | | | 2. | | | Activi | | | ty, | | | other | | | specif | | | ied | | | 2. | | | Alcoho | | | l | | | depend | | | ence, | | | uncomp | | | licate | | | d Sep | | | 11, | | | 2017 | | | [place] | | | [facility] | | | Commun | | | [facility] | | | | | | [place] | | | [place] | | | Emerge | | | ncy | | | Emerge | | | ncy | | | 0. | | | HEADAC | | | HE | | | 1. | | | Alcoho | | | l | | | depend | | | ence | | | with | | | intoxi | | | cation | | | , | | | unspec | | | ified | | | 2. | | | Headac | | | he | | | Sep | | | 10, | | | 2017 | | | [place] | | | [facility] | | | Commun | | | [facility] | | | | | | [place] | | | [place] | | | Emerge | | | ncy | | | Emerge | | | ncy | | | 0. | | | HEAD | | | INJURY | | | | | | Cervic | | | algia | | | 1. | | | Other | | | specif | | | ied | | | injuri | | | es of | | | head, | | | initia | | | l | | | encoun | | | ter | | | 2. | | | Blood | | | alcoho | | | l | | | level | | | of | | | 20-39 | | | mg/100 | | | ml | | | 2. | | | Fall | | | on | | | same | | | level | | | from | | | slippi | | | ng, | | | trippi | | | ng and | | | | | | stumbl | | | ing | | | withou | | | t | | | subseq | | | uent | | | striki | | | ng | | | agains | | | t | | | object | | | , | | | initia | | | l | | | encoun | | | ter | | | 2. | | | Activi | | | ty, | | | walkin | | | g, | | | marchi | | | ng and | | | | | | hiking | | | 2. | | | | | | Alcoho | | | l | | | depend | | | ence | | | with | | | intoxi | | | cation | | | , | | | unspec | | | ified | | | 2. | | | Other | | | specif | | | ied | | | places | | | as | | | the | | | place | | | of | | | occurr | | | ence | | | of the | | | | | | leather flesher | | | al | | | cause | | | Sep | | | 6, | | | 2017 | | | [place] | | | | | | Region | | | al | | | [facility] | | | [place] | | | [place] | | | Emerge | | | ncy | | | Emerge | | | ncy | | | 0. | | | ETOH | | | ABUSE | | | | | | Alcoho | | | l | | | abuse, | | | | | | uncomp | | | licate | | | d | | | 1. | | | Alcoho | | | l | | | depend | | | ence, | | | uncomp | | | licate | | | d Sep | | | 1, | | | 2017 | | | [place] | | | | | | Region | | | al | | | [facility] | | | [place] | | | [place] | | | Emerge | | | ncy | | | Emerge | | | ncy | | | 0. | | | ETOH | | | ABUSE | | | 1. | | | Alcoho | | | l | | | abuse | | | with | | | intoxi | | | cation | | | , | | | unspec | | | ified | | | 2. | | | Nicoti | | | ne | | | depend | | | ence, | | | cigare | | | ttes, | | | uncomp | | | licate | | | d | | | 2. | | | Elevat | | | ed | | | blood- | | | pressu | | | re | | | readin | | | g, | | | withou | | | t | | | diagno | | | sis of | | | | | | hypert | | | ension | | | | | | Alcoho | | | l | | | abuse, | | | | | | uncomp | | | licate | | | d | | | E.D. | | | Visit | | | Count | | | (12 | | | mo.)Fa | | | cility | | | | | | Visits | | | Low | | | [facility] | | | | | | [place] | | | ia | | | [facility] | | | [facility] | | | al | | | Hospit | | | al | | | [place] | | | 1 0 | | | [facility] | | | ess | | | Medica | | | l | | | Center | | | 2 0 | | | Prov[facility] | | | ence | | | [facility] | | | | | | Med[facility] | | | l | | | Center | | | 1 0 | | | [place] | | | [facility]ie | | | Commun | | | ity | | | Hospit | | | al 16 | | | 0 | | | [facility] | | | | | | [facility] | | | al | | | Medica | | | l | | | Center | | | 9 0 | | | Total | | | 29 0 | | | Note: | | | Visits | | | | | | indica | | | te | | | total | | | known | | | visits | | | . | | | Medica | | | id Low | | | | | | Acuity | | | Dx | | | are | | | the | | | number | | | of | | | primar | | | y | | | diagno | | | ses on | | | the | | | Medica | | | id's | | | Low | | | Acuity | | | dx | | | list. | | | | | | Recent | | | | | | Inpati | | | ent | | | Visit | | | Summar | | | yAdmit | | | Date | | | Facili | | | ty | | | City | | | State | | | Type | | | Major | | | Type | | | Diagno | | | ses or | | | Chief | | | | | | Compla | | | int | | | Nov | | | 15, | | | 2017 | | | [facility] [place] | | | [place] | | | Inpati | | | ent | | | Inpati | | | ent | | | Chief | | | Compla | | | int: | | | AMS | | | Oct | | | 10, | | | 2017 | | | [facility] | | | [place] | | | [place] | | | Inpati | | | ent | | | Inpati | | | ent | | | 0. | | | Trauma | | | tic | | | subara | | | chnoid | | | | | | hemorr | | | gilberto | | | with | | | loss | | | of | | | consci | | | ousnes | | | s of | | | unspec | | | ified | | | durati | | | on, | | | initia | | | l | | | encoun | | | ter | | | 1. | | | Trauma | | | tic | | | hemorr | | | gilberto | | | of | | | right | | | cerebr | | | um | | | withou | | | t loss | | | of | | | consci | | | ousnes | | | s, | | | initia | | | l | | | encoun | | | ter | | | 2. | | | Respir | | | atory | | | failur | | | e, | | | unspec | | | ified, | | | | | | unspec | | | ified | | | whethe | | | r with | | | | | | hypoxi | | | a or | | | hyperc | | | apnia | | | 3. | | | Cerebr | | | al | | | infarc | | | tion | | | due to | | | | | | unspec | | | ified | | | occlus | | | ion or | | | | | | stenos | | | is of | | | right | | | child adolescent care | | | ior | | | cerebr | | | al | | | artery | | | 4. | | | | | | [facility]AS[facility] | | | W COMA | | | SCALE | | | SCORE | | | 9-12, | | | AT | | | HOSPIT | | | AL | | | ADMISS | | | I | | | 5. | | | Lacera | | | tion | | | withou | | | t | | | foreig | | | n body | | | of | | | scalp, | | | | | | initia | | | l | | | encoun | | | ter | | | Other | | | | | | second | | | rj | | | thromb | | | ocytop | | | enia | | | 9. | | | [place] | | | lemia | | | | | | Bladde | | | r | | | disord | | | er, | | | unspec | | | ified | | | | | | Other | | | psycho | | | active | | | | | | substa | | | nce | | | abuse, | | | | | | uncomp | | | licate | | | d [!] | | | | | | Patien | | | t is | | | on | | | Washin | | | gton | | | PRCPro | | | vider | | | PRC | | | Type | | | Phone | | | Servic | | | e | | | Dates | | | | | | [facility] | | | | [facility] | | | | | | [facility] | | | Lock | | | In | | | (509) | | | [phone] | | | 02 | | | (509) | | | [phone] | | | 74 Oct | | | 20, | | | 2017 - | | | | | | [facility] | | | t | | | [facility] | | | | | | [facility] | | | Lock | | | In | | | (509) | | | [phone] | | | 05 | | | (509) | | | [phone] | | | 86 Oct | | | 20, | | | 2017 - | | | | | | Curren | | | t If | | | this | | | client | | | is | | | seen | | | in | | | your | | | facili | | | ty, | | | please | | | | | | notify | | | the | | | client | | | 's PCP | | | | | | and/or | | | refer | | | the | | | client | | | back | | | to | | | their | | | PCP | | | for | | | approp | | | riate | | | follow | | | -up | | | and | | | manage | | | ment | | | of | | | care. | | | If you | | | have | | | any | | | questi | | | ons or | | | | | | concer | | | ns | | | about | | | the | | | client | | | or | | | the | | | PRC | | | progra | | | m, | | | please | | | feel | | | free | | | to | | | contac | | | t us | | | at | | | [phone] | | | [phone] | | | [phone] | | | ext. | | | [phone] | | | or go | | | to the | | | PRC | | | websit | | | e at | | | http:/ | | | [email or web address]. | | | [email or web address] | | | [email or web address].gov/ | | | PRR/ | | | for | | | more | | | inform | | | ation. | | | | | | Additi | | | onal | | | Care | | | Provid | | | ersPro | | | vider | | | PRC | | | Type | | | Phone | | | Fax | | | Servic | | | e | | | Dates | | | [facility] | | | | | | Neighb | | | orhood | | | | | | Medica | | | l | | | Primar | | | y Care | | | | | | Curren | | | t | | | [facility] | | | Depot | | | Primar | | | y Care | | | | | | Curren | | | t | | | Criter | | | ia met | | | 3 | | | Facili | | | ties | | | in 60 | | | PRC | | | 5 in | | | 60 5 | | | in | | | 12Know | | | n | | | Aliase | | | sNo | | | known | | | aliase | | | s. The | | | above | | | | | | inform | | | ation | | | is | | | provid | | | ed for | | | the | | | sole | | | purpos | | | e of | | | patien | | | t | | | treatm | | | ent. | | | Use of | | | this | | | inform | | | ation | | | beyond | | | the | | | terms | | | of | | | Data | | | Sharin | | | g | | | Memora | | | ndum | | | of | | | Unders | | | tandin | | | g and | | | Licens | | | e | | | Agreem | | | ent is | | | | | | prohib | | | ited. | | | In | | | certai | | | n | | | cases | | | not | | | all | | | visits | | | may | | | be | | | repres | | | ented. | | | | | | Consul | | | t the | | | aforem | | | ention | | | ed | | | facili | | | ties | | | for | | | additi | | | onal | | | inform | | | ation. | | | ? | | | 2016 | | | Colle[employer] | | | tive | | | Medica | | | l | | | [employer] | | | logies | | | , [employer] | | | - | | | [place] | | | [place] | | | [place], | | | [place] - | | | [email or web address] | | | ollect | | | ivemed | | | icalte | | | [email or web address] | | | | +---+--------+ + +---+ +---+ + | IMAGING REPORT - | | 03/15/2017 | | Results for this | | EXTERNAL SCAN | | 12:00 AM | | procedure are in the | | | | PST | | results section. | + +---+ +---+ + | LABS - EXTERNAL SCAN | | 03/15/2017 | | Results for this | | | | 12:00 AM | | procedure are in the | | | | PST | | results section. | + +---+ +---+ + | IMAGING REPORT - | | 03/13/2017 | | Results for this | | EXTERNAL SCAN | | 12:00 AM | | procedure are in the | | | | PST | | results section. | + +---+ +---+ + documented in this encounter Results POC Glucose (03/18/2017 5:33 PM PST) + +---------+ + + + | Component | Value | Ref Range | Performed | Pathologist | | | | | At | Signature | + +---------+ + + + | Glucose, | 108 (H) | 65 - 99 mg/dL | [facility] | | | [facility] | [facility] | | | | | [facility] | | | | | | MEDICAL | | | | | | CENTER | | | | | | LABORATORY | | + +---------+ + + + + + | Specimen | + + | | + + + + + + + | Performing | Address | City/State/Zipcode | Phone Number | | Organization | | | | + + + + + | [facility] | [address] | [place] [address] | | | [facility] | | | | | LABORATORY | | | | + + + + + POC Glucose (03/18/2017 12:07 PM PST) + +---------+ + + + | Component | Value | Ref Range | Performed | Pathologist | | | | | At | Signature | + +---------+ + + + | Glucose, | 112 (H) | 65 - 99 mg/dL | [facility] | | | [facility] | | [facility] | | | | | | [facility] | | | | | | MEDICAL | | | | | | CENTER | | | | | | LABORATORY | | + +---------+ + + + + + | Specimen | + + | | + + + + + + + | Performing | Address | City/State/Zipcode | Phone Number | | Organization | | | | + + + + + | [facility] | [address] | [place] [address] | | | [facility] | | | | | LABORATORY | | | | + + + + + POC Glucose (03/18/2017 7:33 AM PST) + +---------+ + + + | Component | Value | Ref Range | Performed | Pathologist | | | | | At | Signature | + +---------+ + + + | Glucose, | 112 (H) | 65 - 99 mg/dL | [facility] | | | [facility] | | | [facility] | | | | | | [facility] | | | | | | MEDICAL | | | | | | CENTER | | | | | | LABORATORY | | + +---------+ + + + + + | Specimen | + + | | + + + + + + + | Performing | Address | City/State/Zipcode | Phone Number | | Organization | | | | + + + + + | [facility] | [address] | [place] [address] | | | [facility] | | | | | LABORATORY | | | | + + + + + POC Glucose (03/18/2017 6:19 AM PST) + +---------+ + + + | Component | Value | Ref Range | Performed | Pathologist | | | | | At | Signature | + +---------+ + + + | Glucose, | 160 (H) | 65 - 99 mg/dL | [facility] | | | P[facility] | [facility] | | | | | | [facility] | | | | | | MEDICAL | | | | | | CENTER | | | | | | LABORATORY | | + +---------+ + + + + + | Specimen | + + | | + + + + + + + | Performing | Address | City/State/Zipcode | Phone Number | | Organization | | | | + + + + + | [facility] | [address] | [place] [address] | | | [facility] | | | | | LABORATORY | | | | + + + + + Basic Metabolic Panel (03/18/2017 4:17 AM PST) + + + + + + | Component | Value | Ref Range | Performed | Pathologist | | | | | At | Signature | + + + + + + | Na | 140 | 135 - 145 | [facility] | | | | | mmol/L | [facility] | | | | | | HEART | | | | | | MEDICAL | | | | | | CENTER | | | | | | LABORATORY | | + + + + + + | K | 3.5 | 3.5 - 5.0 | [facility] | | | | | mmol/L | [facility] | | | | | | HEART | | | | | | MEDICAL | | | | | | CENTER | | | | | | LABORATORY | | + + + + + + | Cl | 103 | 99 - 109 mmol/L | [facility] | | | | | | [facility] | | | | | | HE[facility] | | | | | | MEDICAL | | | | | | CENTER | | | | | | LABORATORY | | + + + + + + | CO2 | 28 | 21 - 28 mmol/L | [facility] | | | | | | [facility] | | | | | | [facility] | | | | | | MEDICAL | | | | | | CENTER | | | | | | LABORATORY | | + + + + + + | Glucose | 98Comment: Danish | 65 - 99 mg/dL | [facility] | | | | Diabetes Association | | [facility] | | | | diagnostic categories | | HEART | | | | for non adults: | | MEDICAL | | | | Impaired fasting | | CENTER | | | | glucose 100 to 125 | | LABORATORY | | | | mg/dL. A fasting | | | | | | glucose result of 126 | | | | | | mg/dL or greater | | | | | | indicates diabetes if | | | | | | the abnormality is | | | | | | confirmed on a | | | | | | subsequent day. A | | | | | | random glucose result of | | | | | | greater than 200 mg/dL | | | | | | indicates diabetes if | | | | | | the abnormality is | | | | | | confirmed on a | | | | | | subsequent day. | | | | + + + + + + | BUN | 7 (L) | 8 - 25 mg/dL | [facility] | | | | | | [facility] | | | | | | HE[facility] | | | | | | MEDICAL | | | | | | CENTER | | | | | | LABORATORY | | + + + + + + | Creatinine | 0.61 (L)Comment: IDMS | 0.70 - 1.30 | [facility] | | | | traceable creatinine | mg/dL | [facility] | | | | | | HEART | | | | | | MEDICAL | | | | | | CENTER | | | | | | LABORATORY | | + + + + + + | Calcium | 9.2 | 8.5 - 10.2 | [facility] | | | | | mg/dL | [facility] | | | | | | HEART | | | | | | MEDICAL | | | | | | CENTER | | | | | | LABORATORY | | + + + + + + | Anion Gap | 9 | 5 - 16 mmol/L | [facility] | | | | | | [facility] | | | | | | HEART | | | | | | MEDICAL | | | | | | CENTER | | | | | | LABORATORY | | + + + + + + | Estimated | >60Comment: GFR <60: | >60 | [facility] | | | GFR | Chronic kidney disease, | ml/min/1.73m2 | [facility] | | | | if found over a 3 month | | HEART | | | | period.GFR <15: Kidney | | MEDICAL | | | | failure.For | | CENTER | | | | Americans, multiply the | | LABORATORY | | | | calculated GFR by 1.210 | | | | + + + + + + + + | Specimen | + + | Blood | + + + + + + + | Performing | Address | City/State/Zipcode | Phone Number | | Organization | | | | + + + + + | [facility] | [address] | [place] [address] | | | [facility] | | | | | LABORATORY | | | | + + + + + Hemoglobin A1C (03/18/2017 4:17 AM PST) + + + + + + | Component | Value | Ref Range | Performed | Pathologist | | | | | At | Signature | + + + + + + | Hemoglobin | 5.2Comment: The Danish | 4.3 - 6.1 % | [facility] | | | A1c | Diabetes Association | | [facility] | | | | considers a result of < | | HEART | | | | 7.0% to be the goal of | | MEDICAL | | | | diabetic therapy. | | CENTER | | | | | | LABORATORY | | + + + + + + | Estimated | 103Comment: The ADA | mg/dL | [facility] | | | Average | recommends an Estimated | | [facility] | | | Glucose | Average Glucose (eAG) | | HEART | | | | result of LT 154 mg/dL | | MEDICAL | | | | to be the goal of | | CENTER | | | | diabetic therapy. | | LABORATORY | | | | Estimated Average | | | | | | Glucose is calculated | | | | | | from the Hgb A1c by use | | | | | | of the ADA recommended | | | | | | formula. | | | | + + + + + + + + | Specimen | + + | Blood | + + + + + + + | Performing | Address | City/State/Zipcode | Phone Number | | Organization | | | | + + + + + | [facility] | [address] | [place] [address] | | | [facility] | | | | | LABORATORY | | | | + + + + + POC Glucose (03/17/2017 9:26 PM PST) + +-------+ + + + | Component | Value | Ref Range | Performed | Pathologist | | | | | At | Signature | + +-------+ + + + | Glucose, | 87 | 65 - 99 mg/dL | [facility] | | | POC | | | [facility] | | | | | | HEART | | | | | | MEDICAL | | | | | | CENTER | | | | | | LABORATORY | | + +-------+ + + + + + | Specimen | + + | | + + + + + + + | Performing | Address | City/State/Zipcode | Phone Number | | Organization | | | | + + + + + | [facility] | [address] | [place] [address] | | | [facility] | | | | | LABORATORY | | | | + + + + + POC Glucose (03/17/2017 4:21 PM PST) + +---------+ + + + | Component | Value | Ref Range | Performed | Pathologist | | | | | At | Signature | + +---------+ + + + | Glucose, | 111 (H) | 65 - 99 mg/dL | [facility] | | | POC | | | [facility] | | | | | | HEART | | | | | | MEDICAL | | | | | | CENTER | | | | | | LABORATORY | | + +---------+ + + + + + | Specimen | + + | | + + + + + + + | Performing | Address | City/State/Zipcode | Phone Number | | Organization | | | | + + + + + | [facility] | [address] | [place] [address] | | | [facility] | | | | | LABORATORY | | | | + + + + + Basic Metabolic Panel (03/17/2017 10:17 AM PST) + + + + + + | Component | Value | Ref Range | Performed | Pathologist | | | | | At | Signature | + + + + + + | Na | 139 | 135 - 145 | [facility] | | | | | mmol/L | [facility] | | | | | | HEART | | | | | | MEDICAL | | | | | | CENTER | | | | | | LABORATORY | | + + + + + + | K | 3.3 (L) | 3.5 - 5.0 | [facility] | | | | | mmol/L | [facility] | | | | | | HEART | | | | | | MEDICAL | | | | | | CENTER | | | | | | LABORATORY | | + + + + + + | Cl | 102 | 99 - 109 mmol/L | [facility] | | | | | | [facility] | | | | | | HEART | | | | | | MEDICAL | | | | | | CENTER | | | | | | LABORATORY | | + + + + + + | CO2 | 28 | 21 - 28 mmol/L | [facility] | | | | | | [facility] | | | | | | HEART | | | | | | MEDICAL | | | | | | CENTER | | | | | | LABORATORY | | + + + + + + | Glucose | 198 (H)Comment: Danish | 65 - 99 mg/dL | [facility] | | | | Diabetes Association | | [facility] | | | | diagnostic categories | | HEART | | | | for non adults: | | MEDICAL | | | | Impaired fasting | | CENTER | | | | glucose 100 to 125 | | LABORATORY | | | | mg/dL. A fasting | | | | | | glucose result of 126 | | | | | | mg/dL or greater | | | | | | indicates diabetes if | | | | | | the abnormality is | | | | | | confirmed on a | | | | | | subsequent day. A | | | | | | random glucose result of | | | | | | greater than 200 mg/dL | | | | | | indicates diabetes if | | | | | | the abnormality is | | | | | | confirmed on a | | | | | | subsequent day. | | | | + + + + + + | BUN | 6 (L) | 8 - 25 mg/dL | [facility] | | | | | | [facility] | | | | | | HEART | | | | | | MEDICAL | | | | | | CENTER | | | | | | LABORATORY | | + + + + + + | Creatinine | 0.72Comment: IDMS | 0.70 - 1.30 | [facility] | | | | traceable creatinine | mg/dL | [facility] | | | | | | HEART | | | | | | MEDICAL | | | | | | CENTER | | | | | | LABORATORY | | + + + + + + | Calcium | 9.1 | 8.5 - 10.2 | [facility] | | | | | mg/dL | [facility] | | | | | | HEART | | | | | | MEDICAL | | | | | | CENTER | | | | | | LABORATORY | | + + + + + + | Anion Gap | 9 | 5 - 16 mmol/L | [facility] | | | | | | [facility] | | | | | | HEART | | | | | | MEDICAL | | | | | | CENTER | | | | | | LABORATORY | | + + + + + + | Estimated | >60Comment: GFR <60: | >60 | [facility] | | | GFR | Chronic kidney disease, | ml/min/1.73m2 | [facility] | | | | if found over a 3 month | | HEART | | | | period.GFR <15: Kidney | | MEDICAL | | | | failure.For | | [facility] | | | | Americans, multiply the | | LABORATORY | | | | calculated GFR by 1.210 | | | | + + + + + + + + | Specimen | + + | Blood | + + + + + + + | Performing | Address | City/State/Zipcode | Phone Number | | Organization | | | | + + + + + | [facility] | [address] | [place] [address] | | | [facility] | | | | | LABORATORY | | | | + + + + + Phosphorus (03/16/2017 1:26 AM PST) + +-------+ + + + | Component | Value | Ref Range | Performed | Pathologist | | | | | At | Signature | + +-------+ + + + | Phosphorus | 4.0 | 2.3 - 4.8 mg/dL | [facility] | | | | | | [facility] | | | | | | HEART | | | | | | MEDICAL | | | | | | CENTER | | | | | | LABORATORY | | + +-------+ + + + + + | Specimen | + + | Blood | + + + + + + + | Performing | Address | City/State/Zipcode | Phone Number | | Organization | | | | + + + + + | [facility] | [address] | [place] [address] | | | [facility] | | | | | LABORATORY | | | | + + + + + Magnesium (03/16/2017 1:26 AM PST) + +-------+ + + + | Component | Value | Ref Range | Performed | Pathologist | | | | | At | Signature | + +-------+ + + + | Magnesium | 1.7 | 1.7 - 2.4 mg/dL | [facility] | | | | | | [facility] | | | | | | HEART | | | | | | MEDICAL | | | | | | CENTER | | | | | | LABORATORY | | + +-------+ + + + + + | Specimen | + + | Blood | + + + + + + + | Performing | Address | City/State/Zipcode | Phone Number | | Organization | | | | + + + + + | [facility] | [address] | [place] [address] | | | [facility] | | | | | LABORATORY | | | | + + + + + CT Head wo Contrast (03/15/2017 6:01 PM PST) + + | Specimen | + + | | + + + + + | Narrative | Performed At | + + + | CT HEAD WITHOUT CONTRAST CLINICAL INFORMATION: Dizziness and | [facility] | | weakness. COMPARISON: D W/O dated 02/08/2017 PROCEDURE: | | | Axial images were obtained through the head without IV contrast. | | | Multiplanar reformations were obtained from the acquisition data. | | | At least one of the following CT dose optimization techniques were | | | used: Automated exposure control; Adjustment of mA and/or kV | | | according to patient size; Use of iterative reconstruction technique. | | | FINDINGS: Brain: Encephalomalacia of the right anterior temporal | | | lobe, unchanged. Hypoattenuation present within the right temporal, | | | parietal and posterior frontal lobes, unchanged, possibly related to | | | previous surgery or hemorrhages. No acute intracranial hemorrhage. | | | There is 8 mm of leftward midline shift at the septum pellucidum | | | which is increased since 03/13/2017 but decreased since 03/12/2017. | | | Ventricles and extra-axial fluid spaces: Normal. Paranasal | | | sinuses and mastoid air cells: Mastoid air cells are non pneumatized | | | Calvarium and extracranial soft tissues: Large right craniectomy. | | | Left frontal scalp lipoma. Orbits: Old right medial orbital wall | | | blowout fracture. IMPRESSION: 1. No acute intracranial | | | abnormality. Mild edema or gliosis of the right posterior frontal, | | | temporal and parietal cortex. Stable appearance of since | | | 03/12/2017. 2. Large right craniectomy. Encephalomalacia of the | | | right temporal lobe 8 mm of leftward midline shift at the septum | | | pellucidum which may be positional given increased since 03/13/2017 | | | and decreased since 03/12/2017. Signed by: Master Thomas | | | | | + + + + + | Procedure Note | + + | Miguel, Rad Results In - 03/15/2017 6:56 PM PST | | CT HEAD WITHOUT CONTRAST | | | | CLINICAL INFORMATION: | | Dizziness and weakness. | | | | COMPARISON: | | D W/O dated 02/08/2017 | | | | PROCEDURE: | | Axial images were obtained through the head without IV contrast. | | Multiplanar reformations were obtained from the acquisition data. | | | | At least one of the following CT dose optimization techniques were | | used: Automated exposure control; Adjustment of mA and/or kV | | according to patient size; Use of iterative reconstruction technique. | | | | FINDINGS: | | Brain: Encephalomalacia of the right anterior temporal lobe, | | unchanged. Hypoattenuation present within the right temporal, | | parietal and posterior frontal lobes, unchanged, possibly related to | | previous surgery or hemorrhages. No acute intracranial hemorrhage. | | There is 8 mm of leftward midline shift at the septum pellucidum | | which is increased since 03/13/2017 but decreased since 03/12/2017. | | | | Ventricles and extra-axial fluid spaces: Normal. | | | | Paranasal sinuses and mastoid air cells: Mastoid air cells are non | | pneumatized | | | | Calvarium and extracranial soft tissues: Large right craniectomy. | | Left frontal scalp lipoma. | | | | Orbits: Old right medial orbital wall blowout fracture. | | | | IMPRESSION: | | 1. No acute intracranial abnormality. Mild edema or gliosis of the | | right posterior frontal, temporal and parietal cortex. Stable | | appearance of since 03/12/2017. | | 2. Large right craniectomy. Encephalomalacia of the right temporal | | lobe 8 mm of leftward midline shift at the septum pellucidum which | | may be positional given increased since 03/13/2017 and decreased | | since 03/12/2017. | | | | | | | | Signed by: Master Thomas | + + + +---------+ + + | Performing | Address | City/State/Zipcode | Phone Number | | Organization | | | | + +---------+ + + | [facility] | | | | + +---------+ + + Extra Hold Tube(s) (03/15/2017 3:24 PM PST) + +---------+ + + + | Component | Value | Ref Range | Performed | Pathologist | | | | | At | Signature | + +---------+ + + + | Extra Tube | SST DEMI | | [facility] | | | | | | [facility] | | | | | | HEART | | | | | | MEDICAL | | | | | | CENTER | | | | | | LABORATORY | | + +---------+ + + + + + | Specimen | + + | | + + + + + + + | Performing | Address | City/State/Zipcode | Phone Number | | Organization | | | | + + + + + | [facility] | [address] | [place] [address] | | | [facility] | | | | | LABORATORY | | | | + + + + + Urinalysis With Microscopic (03/15/2017 3:24 PM PST) + + + + + + | Component | Value | Ref Range | Performed | Pathologist | | | | | At | Signature | + + + + + + | Color, | Yellow | | [facility] | | | Urine | | | [facility] | | | | | | HEART | | | | | | MEDICAL | | | | | | CENTER | | | | | | LABORATORY | | + + + + + + | Clarity, | Clear | | [facility] | | | Urine | | | [facility] | | [facility] | [facility] | | | [facility] | | | | | | LABORATORY | | + + + + + + | Glucose, | Negative | Negative mg/dL | [facility] | | | [facility] | | | | [facility] | | | | | | [facility] | | | | | | LABORATORY | | + + + + + + | Bilirubin, | Negative | Negative | [facility] | | | [facility] | | | | | [facility] | | | | | | [facility] | | | | | | LABORATORY | | + + + + + + | Ketones, | Negative | Negative mg/dL | [facility] | | | [facility] | | | | | [facility] | | | | | | [facility] | | | | | | LABORATORY | | + + + + + + | Specific | 1.013 | 1.001 - 1.030 | [facility] | | | [place] | | | [facility] | | | | | [facility] | | | | | | [facility] | | | | | | LABORATORY | | + + + + + + | pH, Urine | 7.0 | 5.0 - 7.5 | [facility] | | | | | [facility] | | | [facility] | | | | | [facility] | | | | | | LABORATORY | | + + + + + + | Protein, | Negative | Negative mg/dL | [facility] | | | [facility] | | [facility] | | | | | | [facility] | | | | | | [facility] | | | | | | LABORATORY | | + + + + + + | Urobilinoge | 2.0 (H) | <2.0 mg/dL | [facility] | | | n, Urine | | | [facility] | | | | | | [facility] | | | | | | [facility] | | | | | | LABORATORY | | + + + + + + | Nitrite, | Negative | Negative | [facility] | | | [facility] | | | | | [facility] | | | | | | [facility] | | | | | | LABORATORY | | + + + + + + | Blood, | Negative | Negative | [facility] | | | [facility] | | | | | [facility] | | | | | | [facility] | | | | | | LABORATORY | | + + + + + + | Leukocyte | Negative | Negative | [facility] | | | Esterase, | | | [facility] | | | [facility] | | | HEART | | | | | | MEDICAL | | | | | | CENTER | | | | | | LABORATORY | | + + + + + + | White Blood | <1 | <6 /hpf | [facility] | | | Cells, | | | [facility] | | | Urine | | | HEART | | | | | | MEDICAL | | | | | | CENTER | | | | | | LABORATORY | | + + + + + + | Red Blood | 3 (H) | <3 /hpf | [facility] | | | Cells, | | | [facility] | | | Urine | | | HEART | | | | | | MEDICAL | | | | | | CENTER | | | | | | LABORATORY | | + + + + + + | Bacteria, | None seen | /hpf | [facility] | | | Urine | | | [facility] | | | | | | HEART | | | | | | MEDICAL | | | | | | CENTER | | | | | | LABORATORY | | + + + + + + | Squamous | Not clinically | /lpf | [facility] | | | Epithelial | significant.Comment: | | [facility] | | | Cells, | Healthy individuals show | | HEART | | | Urine | up to FEW squamous | | MEDICAL | | | | epithelial cells in the | | CENTER | | | | urine, depending on | | LABORATORY | | | | collection method. | | | | + + + + + + | Mucus, | Present (A) | None seen /lpf | [facility] | | | Urine | | | [facility] | | | | | | HEART | | | | | | MEDICAL | | | | | | CENTER | | | | | | LABORATORY | | + + + + + + | Amorphous | Present (A) | None seen /hpf | [facility] | | | Crystals, | | | [facility] | | | Urine | | | HEART | | | | | | MEDICAL | | | | | | CENTER | | | | | | LABORATORY | | + + + + + + + + | Specimen | + + | Urine - Urine | | specimen obtained by | | clean catch | | procedure (specimen) | + + + + + + + | Performing | Address | City/State/Zipcode | Phone Number | | Organization | | | | + + + + + | [facility] | [address] | [place] [address] | | | [facility] | | | | | LABORATORY | | | | + + + + + Ethanol (03/15/2017 3:24 PM PST) + + + + + + | Component | Value | Ref Range | Performed | Pathologist | | | | | At | Signature | + + + + + + | Ethanol Lvl | None Detected (<10 | None Detected | [facility] | | | | mg/dL) | (<10 mg/dL) | [facility] | | | | | mg/dL | HEART | | | | | | MEDICAL | | | | | | CENTER | | | | | | LABORATORY | | + + + + + + | ALCOHOL, | None Detected (<0.010 | None Detected | [facility] | | | SERUM/PLASM | g/dL) | (<0.010 g/dL) | [facility] | | | A | | g/dL | HEART | | | | | | MEDICAL | | | | | | CENTER | | | | | | LABORATORY | | + + + + + + + + | Specimen | + + | Blood | + + + + + + + | Performing | Address | City/State/Zipcode | Phone Number | | Organization | | | | + + + + + | [facility] | [address] | [place] [address] | | | [facility] | | | | | LABORATORY | | | | + + + + + Drugs of Abuse, Screen, Urine (03/15/2017 3:24 PM PST) + + + + + + | Component | Value | Ref Range | Performed | Pathologist | | | | | At | Signature | + + + + + + | Cannabinoid | Negative | Negative | [facility] | | | s Screen, | | | [facility] | | | Urine | | | HEART | | | | | | MEDICAL | | | | | | CENTER | | | | | | LABORATORY | | + + + + + + | Phencyclidi | Negative | Negative | [facility] | | | ne Screen, | | | [facility] | | | Urine | | | HEART | | | | | | MEDICAL | | | | | | CENTER | | | | | | LABORATORY | | + + + + + + | Cocaine | Negative | Negative | [facility] | | | Metabolites | | | [facility] | | | , Ur | | | HEART | | | | | | MEDICAL | | | | | | CENTER | | | | | | LABORATORY | | + + + + + + | Methampheta | Negative | Negative | [facility] | | | mine | | | [facility] | | | Screen, | | | HEART | | | Urine | | | MEDICAL | | | | | | CENTER | | | | | | LABORATORY | | + + + + + + | Opiate | Negative | Negative | [facility] | | | Screen, | | | [facility] | | | Urine | | | HEART | | | | | | MEDICAL | | | | | | CENTER | | | | | | LABORATORY | | + + + + + + | Amphetamine | Negative | Negative | [facility] | | | Screen, | | | [facility] | | | Urine | | | HEART | | | | | | MEDICAL | | | | | | CENTER | | | | | | LABORATORY | | + + + + + + | Benzodiazep | Negative | Negative | [facility] | | | deborah | | | [facility] | | | Screen, | | | HEART | | | Urine | | | MEDICAL | | | | | | CENTER | | | | | | LABORATORY | | + + + + + + | Tricyclics, | Negative | Negative | [facility] | | | UR | | | [facility] | | | | | | HEART | | | | | | MEDICAL | | | | | | CENTER | | | | | | LABORATORY | | + + + + + + | Methadone | Negative | Negative | [facility] | | | Screen, | | | [facility] | | | Urine | | | HEART | | | | | | MEDICAL | | | | | | CENTER | | | | | | LABORATORY | | + + + + + + | Barbiturate | Negative | Negative | [facility] | | | s Screen, | | | [facility] | | | Urine | | | HEART | | | | | | MEDICAL | | | | | | CENTER | | | | | | LABORATORY | | + + + + + + | Oxycodone, | Negative | Negative | [facility] | | | UR | | | [facility] | | | | | | HEART | | | | | | MEDICAL | | | | | | CENTER | | | | | | LABORATORY | | + + + + + + | Porpoxyphen | Negative | Negative | [facility] | | | e Screen, | | | [facility] | | | Urine | | | HEART | | | | | | MEDICAL | | | | | | CENTER | | | | | | LABORATORY | | + + + + + + | Buprenorphi | NegativeComment: This | Negative | [facility] | | | ne Screen, | entire battery is for | | [facility] | | | Urine | screening purposes only. | | HEART | | | | Results are not | | MEDICAL | | | | confirmed.Please note: | | CENTER | | | | Some medications cause | | LABORATORY | | | | positive results with | | | | | | any or all tested drugs | | | | | | in this battery.Results | | | | | | from any unconfirmed | | | | | | drug in this screening | | | | | | battery should not be | | | | | | used for legal purposes. | | | | | | | | | | + + + + + + + + | Specimen | + + | Urine - Urine | | specimen obtained by | | clean catch | | procedure (specimen) | + + + + + + + | Performing | Address | City/State/Zipcode | Phone Number | | Organization | | | | + + + + + | [facility] | [address] | [place] [address] | | | [facility] | | | | | LABORATORY | | | | + + + + + Comprehensive Metabolic Panel (03/15/2017 3:24 PM PST) + + + + + + | Component | Value | Ref Range | Performed | Pathologist | | | | | At | Signature | + + + + + + | Na | 140 | 135 - 145 | [facility] | | | | | mmol/L | [facility] | | | | | | HEART | | | | | | MEDICAL | | | | | | CENTER | | | | | | LABORATORY | | + + + + + + | K | 3.3 (L) | 3.5 - 5.0 | [facility] | | | | | mmol/L | [facility] | | | | | | HEART | | | | | | MEDICAL | | | | | | CENTER | | | | | | LABORATORY | | + + + + + + | Cl | 101 | 99 - 109 mmol/L | [facility] | | | | | | [facility] | | | | | | HEART | | | | | | MEDICAL | | | | | | CENTER | | | | | | LABORATORY | | + + + + + + | CO2 | 27 | 21 - 28 mmol/L | [facility] | | | | | | [facility] | | | | | | HEART | | | | | | MEDICAL | | | | | | CENTER | | | | | | LABORATORY | | + + + + + + | Glucose | 125 (H)Comment: Danish | 65 - 99 mg/dL | [facility] | | | | Diabetes Association | | [facility] | | | | diagnostic categories | | HEART | | | | for non adults: | | MEDICAL | | | | Impaired fasting | | CENTER | | | | glucose 100 to 125 | | LABORATORY | | | | mg/dL. A fasting | | | | | | glucose result of 126 | | | | | | mg/dL or greater | | | | | | indicates diabetes if | | | | | | the abnormality is | | | | | | confirmed on a | | | | | | subsequent day. A | | | | | | random glucose result of | | | | | | greater than 200 mg/dL | | | | | | indicates diabetes if | | | | | | the abnormality is | | | | | | confirmed on a | | | | | | subsequent day. | | | | + + + + + + | BUN | 6 (L) | 8 - 25 mg/dL | [facility] | | | | | | [facility] | | | | | | HEART | | | | | | MEDICAL | | | | | | CENTER | | | | | | LABORATORY | | + + + + + + | Creatinine | 0.56 (L)Comment: IDMS | 0.70 - 1.30 | [facility] | | | | traceable creatinine | mg/dL | [facility] | | | | | | HEART | | | | | | MEDICAL | | | | | | CENTER | | | | | | LABORATORY | | + + + + + + | Calcium | 9.2 | 8.5 - 10.2 | [facility] | | | | | mg/dL | [facility] | | | | | | HEART | | | | | | MEDICAL | | | | | | CENTER | | | | | | LABORATORY | | + + + + + + | Total | 7.5 | 6.1 - 8.4 g/dL | [facility] | | | Protein | | | [facility] | | | | | | HEART | | | | | | MEDICAL | | | | | | CENTER | | | | | | LABORATORY | | + + + + + + | Albumin | 3.9 | 3.5 - 5.0 g/dL | [facility] | | | | | | [facility] | | | | | | HEART | | | | | | MEDICAL | | | | | | CENTER | | | | | | LABORATORY | | + + + + + + | Bilirubin | 0.5 | 0.1 - 1.5 mg/dL | [facility] | | | Total | | | [facility] | | | | | | HEART | | | | | | MEDICAL | | | | | | CENTER | | | | | | LABORATORY | | + + + + + + | Alkaline | 90 | 35 - 115 U/L | [facility] | | | Phosphatase | | | [facility] | | | | | | HEART | | | | | | MEDICAL | | | | | | CENTER | | | | | | LABORATORY | | + + + + + + | AST | 38 | 10 - 45 U/L | [facility] | | | | | | [facility] | | | | | | HEART | | | | | | MEDICAL | | | | | | CENTER | | | | | | LABORATORY | | + + + + + + | ALT | 38 | 10 - 65 U/L | [facility] | | | | | | [facility] | | | | | | HEART | | | | | | MEDICAL | | | | | | CENTER | | | | | | LABORATORY | | + + + + + + | Anion Gap | 12 | 5 - 16 mmol/L | [facility] | | | | | | [facility] | | | | | | HEART | | | | | | MEDICAL | | | | | | CENTER | | | | | | LABORATORY | | + + + + + + | Estimated | >60Comment: GFR <60: | >60 | [facility] | | | GFR | Chronic kidney disease, | ml/min/1.73m2 | [facility] | | | | if found over a 3 month | | HEART | | | | period.GFR <15: Kidney | | MEDICAL | | | | failure.For | | CENTER | | | | Americans, multiply the | | LABORATORY | | | | calculated GFR by 1.210 | | | | + + + + + + + + | Specimen | + + | Blood | + + + + + + + | Performing | Address | City/State/Zipcode | Phone Number | | Organization | | | | + + + + + | [facility] | [address] | [place] [address] | | | [facility] | | | | | LABORATORY | | | | + + + + + CBC with Differential (03/15/2017 3:24 PM PST) + + + + + + | Component | Value | Ref Range | Performed | Pathologist | | | | | At | Signature | + + + + + + | White Blood | 8.4 | 3.8 - 11.0 K/uL | [facility] | | | Cells | | | [facility] | | | | | | HEART | | | | | | MEDICAL | | | | | | CENTER | | | | | | LABORATORY | | + + + + + + | Red Blood | 4.25 | 4.20 - 5.70 | [facility] | | | Cells | | M/uL | [facility] | | | | | | HEART | | | | | | MEDICAL | | | | | | CENTER | | | | | | LABORATORY | | + + + + + + | Hemoglobin | 12.7 (L) | 13.2 - 17.0 | [facility] | | | | | g/dL | [facility] | | | | | | HEART | | | | | | MEDICAL | | | | | | CENTER | | | | | | LABORATORY | | + + + + + + | Hematocrit | 37.5 (L) | 39.0 - 50.0 % | [facility] | | | | | | [facility] | | | | | | HE[facility] | | | | | | MEDICAL | | | | | | CENTER | | | | | | LABORATORY | | + + + + + + | MCV | 88.2 | 80.0 - 100.0 fL | [facility] | | | | | | [facility] | | | | | | HEART | | | | | | MEDICAL | | | | | | CENTER | | | | | | LABORATORY | | + + + + + + | MCH | 29.9 | 27.0 - 34.0 pg | [facility] | | | | | | [facility] | | | | | | HEART | | | | | | MEDICAL | | | | | | CENTER | | | | | | LABORATORY | | + + + + + + | MCHC | 33.9 | 32.0 - 35.5 | [facility] | | | | | g/dL | [facility] | | | | | | HEART | | | | | | MEDICAL | | | | | | CENTER | | | | | | LABORATORY | | + + + + + + | RDW-CV | 15.6 (H) | 11.0 - 15.5 % | [facility] | | | | | | [facility] | | | | | | HEART | | | | | | MEDICAL | | | | | | CENTER | | | | | | LABORATORY | | + + + + + + | Platelet | 197 | 150 - 400 K/uL | [facility] | | | Count | | | [facility] | | | | | | HEART | | | | | | MEDICAL | | | | | | CENTER | | | | | | LABORATORY | | + + + + + + | Differentia | Automated | | [facility] | | | l Type | | | [facility] | | | | | | HEART | | | | | | MEDICAL | | | | | | CENTER | | | | | | LABORATORY | | + + + + + + | % | 77.3 (H) | 40.0 - 75.0 % | [facility] | | | Neutrophils | | | [facility] | | | | | | HEART | | | | | | MEDICAL | | | | | | CENTER | | | | | | LABORATORY | | + + + + + + | % | 14.6 (L) | 15.0 - 48.0 % | [facility] | | | Lymphocytes | | | [facility] | | | | | | HEART | | | | | | MEDICAL | | | | | | CENTER | | | | | | LABORATORY | | + + + + + + | % Monocytes | 7.2 | 0.0 - 12.0 % | [facility] | | | | | | [facility] | | | | | | HEART | | | | | | MEDICAL | | | | | | CENTER | | | | | | LABORATORY | | + + + + + + | % | 0.4 | 0.0 - 7.0 % | [facility] | | | Eosinophils | | | [facility] | | | | | | HEART | | | | | | MEDICAL | | | | | | CENTER | | | | | | LABORATORY | | + + + + + + | % Basophils | 0.5 | 0.0 - 2.0 % | [facility] | | | | | | [facility] | | | | | | HEART | | | | | | MEDICAL | | | | | | CENTER | | | | | | LABORATORY | | + + + + + + | Absolute | 6.50 | 1.90 - 7.40 | [facility] | | | Neutrophils | | K/uL | [facility] | | | | | | HEART | | | | | | MEDICAL | | | | | | CENTER | | | | | | LABORATORY | | + + + + + + | Absolute | 1.20 | 1.00 - 3.90 | [facility] | | | Lymphocytes | | K/uL | [facility] | | | | | | HEART | | | | | | MEDICAL | | | | | | CENTER | | | | | | LABORATORY | | + + + + + + | Absolute | 0.60 | 0.00 - 0.80 | [facility] | | | Monocytes | | K/uL | [facility] | | | | | | HEART | | | | | | MEDICAL | | | | | | CENTER | | | | | | LABORATORY | | + + + + + + | Absolute | 0.00 | 0.00 - 0.50 | [facility] | | | Eosinophils | | K/uL | [facility] | | | | | | HEART | | | | | | MEDICAL | | | | | | CENTER | | | | | | LABORATORY | | + + + + + + | Absolute | 0.00 | 0.00 - 0.10 | [facility] | | | Basophils | | K/uL | [facility] | | | | | | HEART | | | | | | MEDICAL | | | | | | CENTER | | | | | | LABORATORY | | + + + + + + + + | Specimen | + + | Blood | + + + + + + + | Performing | Address | City/State/Zipcode | Phone Number | | Organization | | | | + + + + + | [facility] | [address] | [place] [address] | | | [facility] | | | | | LABORATORY | | | | + + + + + LABS - EXTERNAL SCAN (03/15/2017 12:00 AM PST) + + + | Narrative | Performed At | + + + | Ordered by an | | | unspecified provider. | | + + + IMAGING REPORT - EXTERNAL SCAN (03/15/2017 12:00 AM PST) + + + | Narrative | Performed At | + + + | Ordered by an | | | unspecified provider. | | + + + IMAGING REPORT - EXTERNAL SCAN (03/13/2017 12:00 AM PST) + + + | Narrative | Performed At | + + + | Ordered by an | | | unspecified provider. | | + + + documented in this encounter Visit Diagnoses + + | Diagnosis | + + | Acute encephalopathy - Primary Encephalopathy, unspecified | + + | Alcohol abuse Alcohol abuse, unspecified | + + | Traumatic brain injury, without loss of consciousness, subsequent encounter | + + | Fall, initial encounter | + + | Homelessness Lack of housing | + + | Nicotine abuse Tobacco use disorder | + + | Hyperglycemia Other abnormal glucose | + + | Hypokalemia Hypopotassemia | + + documented in this encounter Admitting Diagnoses + + | Diagnosis | + + | Acute encephalopathy Encephalopathy, unspecified | + + documented in this encounter Administered Medications + +--------+ +--------+------+------+ | Medication Order | MAR | Action | Dose | Rate | Site | | | Action | Date | | | | + +--------+ +--------+------+------+ | acetaminophen (TYLENOL) tablet | Given | 03/18/20 | 650 mg | | | | 650 mg 650 mg, Oral, EVERY 4 | | 17 5:04 | | | | | HOURS PRN, Pain, or fever >= 38.3 | | PM PST | | | | | C (101.5 F), Starting Sat | | | | | | | 03/16/17 at 0033 | | | | | | + +--------+ +--------+------+------+ + + +--------+---+---+ | Given by Other | 03/17/20 | 650 mg | | | | | 17 9:24 | | | | | | PM PST | | | | + + +--------+---+---+ | Given | 03/17/20 | 650 mg | | | | | 17 4:23 | | | | | | PM PST | | | | + + +--------+---+---+ +---+---+ | | | +---+---+ + + + +-------+---+---+ | atorvaSTATin (LIPITOR) tablet | Given by | 03/17/20 | 20 mg | | | | 20 mg 20 mg, Oral, NIGHTLY, | Other | 17 9:24 | | | | | First dose on 03/16/17 at | | PM PST | | | | | 0100 | | | | | | + + + +-------+---+---+ +-------+ +-------+---+---+ | Given | 03/16/20 | 20 mg | | | | | 17 8:16 | | | | | | PM PST | | | | +-------+ +-------+---+---+ + +---+ | | | + +---+ | dextrose 50% injection 12.5 g | | | 12.5 g, Intravenous, PRN, Low | | | Blood Sugar, Starting Sun | | | 03/17/17 at 1432 | | + +---+ | | | + +---+ + +-------+ +-------+---+---+ | escitalopram (LEXAPRO) tablet | Given | 03/18/20 | 10 mg | | | | 10 mg 10 mg, Oral, DAILY, First | | 17 9:06 | | | | | dose on 03/16/17 at 0900 | | AM PST | | | | + +-------+ +-------+---+---+ +-------+ +-------+---+---+ | Given | 11/19/20 | 10 mg | | | | | 17 9:03 | | | | | | AM PST | | | | +-------+ +-------+---+---+ | Given | 03/16/20 | 10 mg | | | | | 17 8:33 | | | | | | AM PST | | | | +-------+ +-------+---+---+ +---+---+ | | | +---+---+ + +-------+ +------+---+---+ | folic acid tablet 1 mg 1 mg, | Given | 03/18/20 | 1 mg | | | | Oral, DAILY, First dose on Sat | | 17 9:06 | | | | | 03/16/17 at 0900, For 3 doses | | AM PST | | | | + +-------+ +------+---+---+ +-------+ +------+---+---+ | Given | 03/17/20 | 1 mg | | | | | 17 9:03 | | | | | | AM PST | | | | +-------+ +------+---+---+ | Given | 03/16/20 | 1 mg | | | | | 17 8:33 | | | | | | AM PST | | | | +-------+ +------+---+---+ +---+---+ | | | +---+---+ + +-------+ + +---+---+ | HYDROcodone-acetaminophen | Given | 03/16/20 | 1 tablet | | | | (NORCO) 5-325 mg per tablet 1 | | 17 12:02 | | | | | tablet 1 tablet, Oral, ONCE, Sat | | AM PST | | | | | 03/16/17 at 0015, For 1 dose | | | | | | + +-------+ + +---+---+ +---+---+ | | | +---+---+ + +-------+ + +---+---+ | HYDROcodone-acetaminophen | Given | 03/17/20 | 1 tablet | | | | (NORCO) 5-325 mg per tablet 1 | | 17 1:42 | | | | | tablet 1 tablet, Oral, EVERY 8 | | PM PST | | | | | HOURS PRN, Pain, Starting Sat | | | | | | | 03/16/17 at 0033, If ineffective | | | | | | | use [place] 10/325 if ordered. If | | | | | | | not tolerated, use Percocet then | | | | | | | Oxycodone if ordered., | | | | | | + +-------+ + +---+---+ +-------+ + +---+---+ | Given | 03/17/20 | 1 tablet | | | | | 17 5:26 | | | | | | AM PST | | | | +-------+ + +---+---+ | Given | 03/16/20 | 1 tablet | | | | | 17 8:16 | | | | | | PM PST | | | | +-------+ + +---+---+ +---+---+ | | | +---+---+ + +-------+ + +---+---+ | HYDROcodone-acetaminophen | Given | 03/18/20 | 1 tablet | | | | (NORCO) 5-325 mg per tablet 1 | | 17 12:33 | | | | | tablet 1 tablet, Oral, EVERY 6 | | PM PST | | | | | HOURS PRN, Pain, Starting Sun | | | | | | | 03/17/17 at 2130, If ineffective | | | | | | | use [place] 10/325 if ordered. If | | | | | | | not tolerated, use Percocet then | | | | | | | Oxycodone if ordered., | | | | | | + +-------+ + +---+---+ +-------+ + +---+---+ | Given | 03/18/20 | 1 tablet | | | | | 17 5:34 | | | | | | AM PST | | | | +-------+ + +---+---+ | Given | 03/17/20 | 1 tablet | | | | | 17 10:00 | | | | | | PM PST | | | | +-------+ + +---+---+ + +---+ | | | + +---+ | insulin lispro (humaLOG) 100 | | | units/mL injection (vial) 0-6 | | | Units 0-6 Units, Subcutaneous, 4 | | | TIMES DAILY WITH MEALS & | | | NIGHTLY, First dose on Sun | | | 03/17/17 at 1700, CORRECTION | | | SCALE: Blood Glucose (BG) < | | | 150: None BG | | | 150-200: DAY: 1 units. NIGHT: 0 | | | units BG 201-250: DAY: 2 units. | | | NIGHT: 1 units BG 251-300: | | | DAY: 3 units. NIGHT: 2 units | | | BG 301-350: DAY: 4 units. NIGHT: | | | 3 units BG 351-400: DAY: 5 | | | units. NIGHT: 4 units BG > | | | 400 : DAY: 6 units. NIGHT: 5 | | | units | | | AND CALL PROVIDER Use DAY DOSE | | | for doses scheduled: AC, | | | NPO, Daytime 8830-1253 Use NIGHT | | | DOSE for doses scheduled: | | | HS, 3AM, Nighttime [phone] Only | | | for use with U-100 insulin | | | syringe., | | + +---+ | | | + +---+ + +-------+ +--------+---+---+ | levETIRAcetam (KEPPRA) tablet | Given | 03/18/20 | 500 mg | | | | 500 mg 500 mg, Oral, 2 TIMES | | 17 9:07 | | | | | DAILY, First dose on 03/16/17 | | AM PST | | | | | at 0100 | | | | | | + +-------+ +--------+---+---+ + + +--------+---+---+ | Given by Other | 03/17/20 | 500 mg | | | | | 17 9:24 | | | | | | PM PST | | | | + + +--------+---+---+ | Given | 03/17/20 | 500 mg | | | | | 17 9:03 | | | | | | AM PST | | | | + + +--------+---+---+ + +---+ | | | + +---+ | LORazepam (ATIVAN) injection | | | 0.5-4 mg 0.5-4 mg, Intravenous, | | | PRN, Withdrawal Symptoms, CIWA | | | PROTOCOL, Starting 03/16/17 | | | at 0059, CIWA <10: No Dose - | | | Reassess at least Q4h CIWA 10-15: | | | 1mg - Reassess in 2hr CIWA | | | 16-20: 2mg - Reassess in 1hr CIWA | | | 21-25: 3mg - Reassess in 1hr | | | CIWA >25 - 4mg - Reassess in | | | 30min If both PO and IV options | | | are available, always use PO | | | first if tolerating PO and | | | patient safe to swallow. Do NOT | | | administer both PO and IV dosing | | | at the same time. , | | + +---+ | | | + +---+ + +-------+ +------+---+---+ | LORazepam (ATIVAN) tablet 1-4 | Given | 03/18/20 | 1 mg | | | | mg 1-4 mg, Oral, PRN, Withdrawal | | 17 11:10 | | | | | Symptoms, CIWA PROTOCOL, | | AM PST | | | | | Starting 03/16/17 at 0059, | | | | | | | CIWA <10: No Dose - Reassess at | | | | | | | least Q4h CIWA 10-15: 1mg - | | | | | | | Reassess in 2hr CIWA 16-20: 2mg - | | | | | | | Reassess in 1hr CIWA 21-25: 3mg | | | | | | | - Reassess in 1hr CIWA >25 - 4mg | | | | | | | - Reassess in 30min If both PO | | | | | | | and IV options are available, | | | | | | | always use PO first if tolerating | | | | | | | PO and patient safe to swallow. | | | | | | | Do NOT administer both PO and IV | | | | | | | dosing at the same time. , | | | | | | + +-------+ +------+---+---+ +-------+ +------+---+---+ | Given | 03/17/20 | 1 mg | | | | | 17 10:37 | | | | | | AM PST | | | | +-------+ +------+---+---+ | Given | 03/16/20 | 1 mg | | | | | 17 2:53 | | | | | | PM PST | | | | +-------+ +------+---+---+ +---+---+ | | | +---+---+ + +---------+ +---------+---+ + | nicotine (NICODERM) 14 mg/24 hr | Patch | 03/18/20 | 1 patch | | Shoulder | | 1 patch 1 patch, Transdermal, | Applied | 17 9:08 | | | -Left | | DAILY, First dose on 03/16/17 | | AM PST | | | | | at 0430 | | | | | | + +---------+ +---------+---+ + + + +---------+---+ + | Patch Applied | 03/17/20 | 1 patch | | Deltoid- | | | 17 9:03 | | | Right | | | AM PST | | | | + + +---------+---+ + | Patch Applied | 03/16/20 | 1 patch | | Arm-Left | | | 17 4:22 | | | Upper | | | AM PST | | | | + + +---------+---+ + + +---+ | | | + +---+ | OLANZapine zydis (zyPREXA | | | ZYDIS) disintegrating tablet 5 mg | | | 5 mg, Oral, EVERY 6 HOURS PRN, | | | Agitation, Hallucinations, | | | Starting 03/16/17 at 0111 | | + +---+ | | | + +---+ + +-------+ +--------+---+---+ | pyridoxine (VITAMIN B-6) tablet | Given | 03/18/20 | 100 mg | | | | 100 mg 100 mg, Oral, DAILY, | | 17 9:08 | | | | | First dose on 03/16/17 at | | AM PST | | | | | 0900, For 3 doses | | | | | | + +-------+ +--------+---+---+ +-------+ +--------+---+---+ | Given | 03/17/20 | 100 mg | | | | | 17 9:03 | | | | | | AM PST | | | | +-------+ +--------+---+---+ | Given | 03/16/20 | 100 mg | | | | | 17 8:33 | | | | | | AM PST | | | | +-------+ +--------+---+---+ +---+---+ | | | +---+---+ + +-------+ +--------+---+---+ | thiamine (VITAMIN B-1) tablet | Given | 03/18/20 | 100 mg | | | | 100 mg 100 mg, Oral, DAILY, | | 17 9:08 | | | | | First dose on 03/16/17 at | | AM PST | | | | | 0900, For 3 doses | | | | | | + +-------+ +--------+---+---+ +-------+ +--------+---+---+ | Given | 03/17/20 | 100 mg | | | | | 17 9:03 | | | | | | AM PST | | | | +-------+ +--------+---+---+ | Given | 03/16/20 | 100 mg | | | | | 17 8:33 | | | | | | AM PST | | | | +-------+ +--------+---+---+ +---+---+ | | | +---+---+ documented in this encounter
--- OUTSIDE RECORDS SUMMARY | ~2019-12-25 | XMS | Encounter Summary ---
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 [place] [facility] [place] [address] [phone] Associated attestation - Chaz Hernandez MD - 10/09/2017 3:04 PM PDTI saw and examined th e patient today with Venita Pruitt PA-C, and agree with the assessement and plan as outlined in her note. Plan takeback with NSG, we will place Gabriel-oconnor feeding tube at that time. Chaz Hernandez MD, FACS Production Planner, Trauma, Critical Care and Acute Care Surgery Sherine Sarmiento, [facility] - 10/08/2017 6:21 AM PDTFormatting [...] - patient unable to come out of IN MOLD COATER for now - Will likely need for [...] [place] tube next [place] [phone] [facility] [place] [id number] [place] [address] [phone] Associated attestation - Chaz Hernandez MD - 10/08/2017 12:16 PM PDTI saw and examined th e patient today with KESHAWN Martin, and agree with the assessement and plan a s outlined in her note. No acute events. Seems to be slowly improving from MS. Appreciate ps ychiatry recs. Chaz Hernandez MD, FACS Production Planner, Trauma, Critical Care and Acute Care Surgery [...] - patient unable to come out fo IN MOLD COATER for now - Will likely need for [...] [place] [phone] [facility] [place] [address] [place] [address] [phone] Associated attestation - Chaz Hernandez MD - 10/07/2017 11:15 AM PDTI saw and examined th e patient today with KESHAWN Martin, and agree with the assessement and plan a s outlined in her note. Will consider changing to bolus TF. Plan Gabriel-oconnor tube next week. Chaz Hernandez MD, FACS Production Planner, Trauma, Critical Care and Acute Care Surgery [...] enrique PA-C - 10/06/2017 8:42 AM PDTFormatti carroll [...] p atient unable to come out fo IN MOLD COATER for now Resolved or chronic issues/Plan: #Previous [...] issues, including restraints. Venita Pruitt PA-C [place] [phone] [place] [phone] [facility] [address] [place] [address] [phone] Associated attestation - Em Cunningham MD - 10/17/2017 10:13 AM PDTI was present and rou nded with the Advanced Practice Provider today . I interviewed and examined the patient. I reviewed the history, as documented today. I agree with the ASHLEY assessment and plan. TBI has remained stable. On lovenox. Will continue haldol per psych.. EM CUNNINGHAM MD [facility] [address] [place] [address] Venita Pruitt PA-C - 10/05/2017 8:38 AM [...] p atient unable to come out fo IN MOLD COATER for now Resolved or chronic issues/Plan: #Previous [...] by patient, but wound remains duke n/dry/intact. [place] removed 09/17. #Left hemothorax Chest tube placed [...] issues, including restraints. Venita Pruitt PA-C P[place] [phone] [facility] [place] [address] [place] [facility] [place] [address] [phone] Associated attestation - Shlomo Bravo MD - 10/06/2017 7:28 AM PDTFormatting of this note m ight be different from the original. I saw and examined Diogenes Temple ([id number]) with the TRAUMA team on 10/05/2017. I [...] and incen tive spirometry for pulmonary toliet. electronics department manager for disposition planning and placement. Shlomo Bravo MD [facility] Director Division of Trauma and Critical Care [...] (baseline from previous TBI ) Neck: in Taft collar Respiratory: CTA b.l CV: RRR GI: [...] p atient unable to come out fo IN MOLD COATER for now Resolved or chronic issues/Plan: #Previous [...] issues, including restraints. Venita Pruitt PA-C [place] [phone] [place] [phone] [facility] & [address] [place] [address] Associated attestation - Fidelina [...] and only enteral access. Fidelina Shields MD Production Planner Division of Trauma, Critical Care and Acute Care Surgery Office: [phone] Pager: [phone] Leonor Torres ACNP - 10/03/2017 3:13 PM [...] results) - Refreshable Recent Labs 10/01/17 0510/02/17 0512 10/03/17 0603 WBC 9.02 12.64* 9.40 [...] (baseline from previous TBI ) Neck: in Taft collar Respiratory: CTA bilaterally, no distress CV: [...] p atient unable to come out fo IN MOLD COATER for now Resolved or chronic issues/Plan: Previous [...] by patient, but wound remains duke n/dry/intact. [place] removed 09/17. #Left hemothorax Chest tube placed [...] PDTAttending: I saw and examined Diogenes Temple ([id number]) with CB Hair on morning rounds 10/03 and agree with the assessment and plan as outlined in this note and participated in the planning of care. Mental status is slightly better, remains sedated but he is interactive and at least somewh at oriented. Enteral nutrition advancing and, as approaches goal, will turn TPN off. Place ment remains a significant issue. Fidelina Shields MD Production Planner Division of Trauma, Critical Care and Acute Care Surgery Office: [phone] Pager: [phone] July Harp PA-C - 10/03/2017 12:58 PM [...] the C-collar when in bed then the IN MOLD COATER when out of bed until 12/01/17. JULY HARP PA-C [facility] [address] [place] [address] Associated attestation - Magdiel Stock MD - 10/04/2017 6:02 PM PDTI performed a history a nd physical examination of the patient and discussed the management with the advanced practi ce provider, July Harp PA-C. I reviewed the advanced practice provider's note and agree w ith the plan of care as documented. Continue cervical collar and IN MOLD COATER for 3 months to ensure fracture healing and prevent development of post-fracture cervical kyphosis. Magdiel Stock MD Production Planner Department of Neurological Surgery [facility] [place] Sherine Sarmiento, [facility] - 10/02/2017 12:54 PM PDTFormatting of this [...] (baseline from previous TBI ) Neck: in Taft collar Respiratory: CTA bilaterally, lungs symmetrical, equal chest wall rise, no retractions CV: RRR GI: non tender, soft, active BS, last BM 09/30 : Patient voiding without difficulty Extremities: no peripheral edema, wiggles toes and toes pink and well perfused Musculoskeletal: 5/5 primary care sales representative strength on right, 3/5 primary care sales representative strength on left FEN: on TPN, [...] AMS & delirium - numerous evaluations by MICA MINER BLASTING with trials of PO - now s/p [...] . - C-collar at all times, use IN MOLD COATER when OOB - Follow-up with Neurosurgery on 10/21 with repeat X-rays #Blunt abdominal trauma #Splenic laceration S/p laparotomies x2. Fascia closed 09/02 Wound vac removed by patient, but wound remains duke n/dry/intact. [place] removed 09/17. #Left hemothorax Chest tube placed [...] will decrease scheduled haldol. [place] Pg [phone] Associated attestation - Fidelina Shields MD - 10/02/2017 4:40 PM PDTAttending: I saw and examined Diogenes Temple ([id number]) with KESHAWN Alexander on mornin g rounds [...] drawn back to midline position. May need senior care enteral access , but is ~4 weeks s/p damage control laparotomy and risk is higher now than it will be in 7- 14 days and if swallow is not improving then will place prior to DC Fidelina Shields MD Production Planner Division of Trauma, Critical Care and Acute Care Surgery Office: [phone] Pager: [phone] Sherine Sarmiento, AGACN - 10/01/2017 7:27 AM [...] (baseline from previous TBI ) Neck: in Taft collar Respiratory: CTA bilaterally, lungs symmetrical, equal chest wall rise, no retractions CV: RRR GI: non tender, soft, active BS, last BM 09/30 : Patient voiding without difficulty Extremities: no peripheral edema, wiggles toes and toes pink and well perfused Musculoskeletal: 5/5 primary care sales representative strength on right, 3/5 primary care sales representative strength on left FEN: on TPN [...] AMS & delirium - numerous evaluations by MICA MINER [employer]ING with trials of PO - now s/p modified barium swallow x2 which indicates aspiration - continue NPO - MICA MINER BLASTING reports that patient working on tongue strength [...] . - C-collar at all times, use IN MOLD COATER when OOB - Follow-up with Neurosurgery on [...] trauma team and [place]g [phone] Associated attestation - Fidelina Shields MD - 10/02/2017 4:40 PM PDTAttending: I saw and examined Diogenes Temple ([id number]) with KESHAWN Alexander on mornin g rounds 10/01/17 and agree with the assessment and plan as outlined in this note and partic ipated in the planning of care. Will trial DHT placement today, CT head unchanged. Suspect somnolence is medication side ef fect and, if persistent, may need to wean antipsychotic doses. Fidelina Shields MD Production Planner Division of Trauma, Critical Care and Acute Care Surgery Office: [phone] Pager: [phone] Christian Kelley PA-C - 09/30/2017 12:21 PM [...] Fixed and dilated on left Neck: in Taft collar Respiratory: CTA bilaterally, lungs symmetrical, equal chest wall rise, no retractions CV: RRR GI: non tender, soft, active BS, last BM 09/30 : Patient voiding without difficulty Extremities: no peripheral edema, wiggles toes and toes pink and well perfused Musculoskeletal: 5/5 primary care sales representative strength on right, 3/5 primary care sales representative strength on left FEN: on TPN [...] AMS & delirium - numerous evaluations by MICA MINER BLASTING with trials of PO - now s/p modified barium swallow x2 which indicates aspiration - continue NPO - MICA MINER BLASTING reports that patient working on tongue strength [...] . - C-collar at all times, use IN MOLD COATER when OOB - Follow-up with Neurosurgery on [...] PDTAttending: I saw and examined Diogenes Temple ([id number]) with Christian Kelley PA-C on morning rounds 09/30 and agree with the assessment and plan as outlined in this note and participated in the planning of care. Mentally slower this morning, but non-focal. Received haldol overnight for sleep. Repeat head CT was unchanged so suspect etiology of slowed responsiveness is the antipsychotic dose . MICA MINER BLASTING believes that, once collar off, may be able to take PO more effectively and thus will hold off on surgical feeding access. TPN is a temporary solution and if patient remains kaye kierra will trial DHT tomorrow. Working with psychiatry for medication recommendations. Fidelina Shields MD Production Planner Division of Trauma, Critical Care and Acute Care Surgery Office: [phone] Pager: [phone] July Harp PA-C - 09/30/2017 8:23 AM PDTBrief Neurosurgery Wound Check: Wound is dry, without erythema, not fluctuant. No acute swelling. Nylon in place. Will plan to follow peripherally for wound checks and remove nylons on 10/09. JULY HARP PA-C [facility] [address] [place] [address] Christian Begum PA-C - 09/29/2017 7:15 AM [...] and EOMs intact to exam Neck: in Taft collar Respiratory: CTA bilaterally, lungs symmetrical, equal chest wall rise, no retractions CV: RRR, no murmurs, rubs, or gallops GI: non tender, soft, active BS, last BM 09/29 : Patient voiding without difficulty Extremities: no peripheral edema, wiggles toes and toes pink and well perfused Musculoskeletal: 08/31 bilateral GS, / bilateral plantar/dorsiflexion FEN: on TPN Heme/ID: on [...] AMS & delirium - numerous evaluations by MICA MINER BLASTING with trials of PO - now s/p [...] . - C-collar at all times, use IN MOLD COATER when OOB - Follow-up with Neurosurgery on [...] PDTAttending: I saw and examined Diogenes Temple ([id number]) with Christian Kelley PA-C on morning rounds 09/29 and agree with the assessment and plan as outlined in this note and participated in the planning of care. Late entry for 09/29/17. Persistent alterations in conscious and dysphagia. Hopefully with ongoing speech therapy a nd when clear to take c-collar off, will improve ability to take PO. While TPN is not an opt imal senior care strategy, would prefer not to place surgical feeding tube if possible given r lukas recent damage control laparotomy and high risk of Mr. Temple pulling it out. Have tried DHT several times and it seems to worsen delirium and he pulls it out frequently. Tit ration of haldol in conjunction with psychiatry. Fidelina Shields MD Production Planner Division of Trauma, Critical Care and Acute Care Surgery Office: [phone] Pager: [phone] Christian Kelley PA-C - 09/28/2017 1:01 PM [...] he said, who, ariel? And then the TUNNEL WORKER helped him make a call to her. [...] and EOMs intact to exam Neck: in Taft collar Respiratory: CTA bilaterally, lungs symmetrical, equal [...] very agitated today. - EKG today with [address] QTc calculated to be 428 - optimize [...] AMS & delirium - numerous evaluations by MICA MINER BLASTING with trials of PO - now s/p [...] . - C-collar at all times, use IN MOLD COATER when OOB - Follow-up with Neurosurgery on 10/21 with repeat X-rays #Blunt abdominal trauma #Splenic laceration S/p laparotomies x2. Fascia closed 09/02 Wound vac removed by patient, but wound remains duke n/dry/intact. [place] removed 09/17. #Left hemothorax Chest tube placed [...] an d physical aggression toward staff CHRISTIAN KLELEY PA-C Associated attestation - Chaz Hernandez MD - 09/30/2017 8:27 AM PDTI saw and examined th e patient today with Christian Kelley PA-C, and agree with the assessement and plan as outlined in her note. See my additional note. Aggressive to staff, but able to communicate more toda y. Chaz Hernandez MD, FACS Production Planner, Trauma, Critical Care and Acute Care Surgery Chaz Hernandez MD - 09/28/2017 10:13 AM PDTTrauma Staff Seen and examined this AM with team. I have concerns abotu behaviour, as he is consistently threatening RN and ancillary staff, even attempting swings. Behavior seems worse at night. I would favor increasing night time Haldol dose, and following EKGs. Chaz Hernandez MD, FACS Production Planner, Trauma, Critical Care and Acute Care Surgery [...] Dallin Bourgeois MD Neurosurgery PGY1 | Pager #[phone] Christian Begum PA-C - 09/27/2017 7:31 AM [...] able to have a linear conversation briefly MICA MINER BLASTING requesting repeat barium swallow Current meds: I [...] incision healing , suture c/d/I Neck: in IN MOLD COATER Respiratory: unlabored on room air, lungs symmetrical, [...] AMS & delirium - numerous evaluations by MICA MINER BLASTING with trials of PO - now s/p [...] . - C-collar at all times, use IN MOLD COATER when OOB - Follow-up with Neurosurgery on 10/21 with repeat X-rays #Blunt abdominal trauma #Splenic laceration S/p laparotomies x2. Fascia closed 09/02 Wound vac removed by patient, but wound remains duke n/dry/intact. [place] removed 09/17. #Left hemothorax Chest tube placed [...] cotinue TPN for now. EM CUNNINGHAM MD [facility] [address] [place] [address] Christian Kelley PA-C - 09/26/2017 6:48 AM [...] posterior scalp crani incision c/d/I Neck: in Taft collar Respiratory: unlabored on room air CV: [...] AMS & delirium - numerous evaluations by MICA MINER BLASTING with trials of PO - now s/p [...] . - C-collar at all times, use IN MOLD COATER when OOB - Follow-up with Neurosurgery on 10/21 with repeat X-rays #Blunt abdominal trauma #Splenic laceration S/p laparotomies x2. Fascia closed 09/02 Wound vac removed by patient, but wound remains duke n/dry/intact. [place] removed 09/17. #Left hemothorax Chest tube placed [...] Continue NPO and TPN. EM CUNNINGHAM MD [facility] [address] [place] [address] Christian Kelley PA-C - 09/25/2017 7:49 AM [...] HEENT: EOMs intact to exam Neck: in IN MOLD COATER brace Respiratory: unlabored on room air CV: [...] AMS & delirium - numerous evaluations by MICA MINER BLASTING with trials of PO - now s/p [...] . - C-collar at all times, use IN MOLD COATER when OOB - Follow-up with Neurosurgery on 10/21 with repeat X-rays #Blunt abdominal trauma #Splenic laceration S/p laparotomies x2. Fascia closed 09/02 Wound vac removed by patient, but wound remains duke n/dry/intact. [place] removed 09/17. #Left hemothorax Chest tube placed [...] LFTS wnl. Continue TPN. EM CUNNINGHAM MD [facility] [address] [place] [address] Christian Kelley PA-C - 09/24/2017 11:07 AM [...] control laparotomy: gastrocutaneous fistula takedown, Abthera placement 5/6/18: Selective bilateral internal iliac artery angiograms 09/02/17: Second-look laparotomy: splenic hemorrhage control, fascial closure, Provena placem ent 24hr events: Did not sleep more than 90 minutes last night per sitter report Will speak with psych regarding changing medication to help with agitation Having difficulty swallowing again - MICA MINER BLASTING to re-eval and obtain barium swallow Current [...] HEENT: EOMs intact to exam Neck: in IN MOLD COATER brace Respiratory: CTA bilaterally, lungs symmetrical, equal chest wall rise, no retractions CV: RRR GI: non distended, last BM 09/23 : good urine output Extremities: SCD's in place, no peripheral edema, wiggles toes and toes pink and well perfu sed Musculoskeletal: 5/5 strength in bilateral primary care sales representative (but with slightly weaker on left) [...] dose QHS for insomnia/restlessness at noc - Haldol 5mg q12hr prn for severe [...] likely 2/2 AMS & delirium - Failed MICA MINER BLASTING eval 09/19 & 09/20, made NPO & dobhoff reinserted 09/21 but pulled overnight - Per MICA MINER BLASTING on 09/21, ok for therapeutic pureed with [...] . - C-collar at all times, use IN MOLD COATER when OOB - Follow-up with Neurosurgery on [...] Start abx for dehiscence. EM CUNNINGHAM MD [facility] [address] [place] [address] Ginette Campos PA-C - 09/24/2017 9:31 AM [...] 4 extremities Unable to assess drift. Motor: Corpsman Bicep Tricep Delt R 5 5 5 [...] further questions or concerns. Ginette Campos PA-C [facility] [address] [place] [phone] illy, Gabriel Cleary AGACNP - 09/23/2017 6:32 AM PDT Trauma [...] hiscence, draining minimal serosang fluid Neck: in IN MOLD COATER brace Respiratory: unlabored on room air CV: [...] PRN seroquel dose QHS for insomnia/restlessness at [facility] - Repeat ECG 09/22 with QTc [...] likely 2/2 AMS & delirium - Failed MICA MINER BLASTING eval 09/19 & 09/20, made NPO & dobhoff reinserted 09/21 but pulled overnight - Per MICA MINER BLASTING on 09/21, ok for therapeutic pureed with [...] . - C-collar at all times, use IN MOLD COATER when OOB - Follow-up with Neurosurgery on 10/21 with repeat X-rays #Blunt abdominal trauma #Splenic laceration S/p laparotomies x2. Fascia closed 09/02 Wound vac removed by patient, but wound remains duke n/dry/intact. [place] removed 09/17. #Left hemothorax Chest tube placed [...] dysphagia & delir ium improves Sherine Sarmiento, [facility] [place] [phone] Dallin Deshpande MD - 09/22/2017 8:03 AM [...] Dallin Bourgeois MD Neurosurgery PGY1 | Pager #[phone] [facility] - 09/22/2017 6:52 AM PDTFormatting of this [...] 24hr events: - Therapeutic purees initiated by MICA MINER BLASTING yesterday - Trickle feeds via Dobbhoff, pt pulled Dobbhoff yesterday evening- not replaced - APRN called around 2129 for new left facial droop (see separate notes), CT revealed increa se in SDH from 12 to 17mm with no change in midline shift. [facility] - NSG and stroke team [...] sluggish. Slight left facial droop Neck: in Taft collar Respiratory: unlabored on room air CV: [...] PRN seroquel dose QHS for insomnia/restlessness at [facility]- - Repeat ECG 09/22 with Q Tc WNL. - Haldol 5mg q12hr prn for severe agitation #Substance abuse, concern for Alcohol withdrawal - CIWA discontinued 09/08, not scoring. - Thiamine & folate started 09/21 #Dysphagia, risk for aspiration #Protein calorie malnutirtion - likely 2/2 AMS & delirium - Failed MICA MINER BLASTING eval 09/19 & 09/20, made NPO & dobhoff reinserted 09/21 but pulled overnight - Per MICA MINER BLASTING on 09/21, ok for therapeutic pureed with [...] . - C-collar at all times, use IN MOLD COATER when OOB - Follow-up with Neurosurgery on [...] when dysphagia & delirium improves Sherine Sarmiento, [facility] Pg [phone] Associated attestation - Nubia Nieto MD,MPH - [...] Trauma, Critical Care & Acute Care Surgery [facility] [phone] Sami Black Merle - 09/21/2017 10:25 PM PDTBrief Progress Note [...] in the morning. Plan: -neuro checks; page [phone] for any decline in neurological examination -pain control -Hard C collar at all times and place IN MOLD COATER prior to mobilizing OOB. Anticipated duration of Collar/IN MOLD COATER is 12 weeks -repeat CT head for any new decline in neurological exam and page [phone] -NPO at midnight tonight -please hold tonight's planned dose of Lovenox -further recommendations in the morning Sami Black MD, PhD PGY-3 Resident Neurosurgery [phone] signed by Sami Black at 09/21/2017 10:50 PM [facility], [facility] - 09/21/2017 7:10 AM PDTFormatting [...] Provena placem ent 24hr events: - Failed MICA MINER BLASTING eval again yest morning, continued NPO - [...] reactive. Dobbhoff tube in place Neck: in Taft collar Respiratory: unlabored on room air CV: [...] likely 2/2 AMS & delirium - Failed MICA MINER BLASTING eval 09/19 & 09/20, made NPO & dobhoff reinserted yesterday - Trickle feeds started this am at 20ml/hr, increase very slowly by 10ml every 12 hrs to go al of 75 due to hx of mesenteric hematomas and previous inability to tolerate TF - Per MICA MINER BLASTING today, ok for therapeutic pureed with nectar [...] . - C-collar at all times, use IN MOLD COATER when OOB - Follow-up with Neurosurgery on [...] & [place] [phone] Associated attestation - Fidelina Shields MD - 09/21/2017 9:36 PM PDTAttending: I saw and examined Diogenes Temple ([id number]) with KESHAWN Alexander on mornin g rounds [...] enough to re-trial PO. Fidelina Shields MD Production Planner Division of Trauma, Critical Care and Acute Care Surgery Office: [phone] Pager: [phone] Sherine Sarmiento AGACNP - 09/20/2017 7:41 AM [...] haldol given yesterday afternoon for agitation - MICA MINER BLASTING paged to re-eval in afternoon after concern for aspiration, made NPO by MICA MINER BLASTING - DARNELL SOLANO Current meds: I have [...] right pupil 3 and reactive Neck: in Taft collar Respiratory: unlabored on room air CV: [...] thick/pureed d iet. Made NPO yesterday by MICA MINER BLASTING after concern for aspiration. This is likely 2/2 waxing & wan ing delirium & AMS - MICA MINER BLASTING re-eval today recommend continue NPO d/t overt clinical signs of aspiration - Place Dobbhoff tube and restart feeds, slowly progress to goal - Stop TPN when tolerating tube feeds - MICA MINER BLASTING will follow closely, as his AMS improves [...] . - C-collar at all times, use IN MOLD COATER when OOB - Follow-up with Neurosurgery on [...] & delirium [place] [phone] Associated attestation - Fidelina Shields MD - 09/20/2017 9:34 PM PDTAttending: I saw and examined Diogenes Temple ([id number]) with KESHAWN Alexander on mornin g rounds [...] dispo planning when able. Fidelina Shields MD Production Planner Division of Trauma, Critical Care and Acute Care Surgery Office: [phone] Pager: [phone] Mary Medrano MD,MPH - 09/19/2017 6:22 AM [...] downgraded from thin to thick liquids by MICA MINER BLASTING Current meds: I have independently reviewed current [...] intact, small Right fluctuant pseudomeningocele Neck: in Taft collar Respiratory: unlabored on room air CV: [...] DHT on09/19. - Cleared for diet by MICA MINER BLASTING, tolerating purees, 749 Calories yesterday - Restart Calorie count: if taking >700 again will be OK for full po diet, otherwise replac e DHT and restart TF - Stop TPN tomorrow regardless - Still considering repeat CT abdomen/pelvis #Dysphagia DHTreplaced overnight 09/07. TF held due to emesis and possible ileus, aspiration risk. DH T pulled overnight on 09/18 - MICA MINER BLASTING as able Resolved or chronic issues/Plan: #BIG 3 TBI #Right synthetic cranioplasty Neurosurgery consulted. Non-operative management. Last head CT 09/12 stable. Expected pseudo meningocele. Left-sided deficits consistent with baseline. - Stat head CT for any neurologic decline #C7 bilateral lamina fractures #C6-T2 spinous process fractures Neurosurgery consulted. Non-operative management. Upright cervical X-rays completed on 09/14 . - C-collar at all times, use IN MOLD COATER when OOB - Follow-up with Neurosurgery on [...] Monitor electrolytes, replete prn #Fever Febrile on 5/9. Mathew-cultures sent. Sputum, urine, blood all negative. #HTN Goal SBP < 160. - Labetalol/hydralazine prn Disposition:Continue acute [place] care. Will need SNF. Mary Medrano M.D., M.P.H. Neurological Surgery Resident PGY-1 Pager: [phone] Associated attestation - Fidelina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 [facility] - | | | GLUCOSE, | [...] PICKETT | [address] | [place], [place] | | | GLORIA GENAO OF [employer] | [address] | [address] | | | TESTS | | | [...] DEPT OF | [address] | [place], [place] | | | CARDIOLOGY | [address] | [address] | | + + + + + [...] MARQUAM | [address] | [place], [place] | | | [facility]ARE | [address] | [address] | | | TESTS | | | [...] GEET OF | [address] | [place], [place] | | | CARDIOLOGY | [address] | [address] | | + + + + + [...] | + + + + + | [facility] | [address] | [place] [address] | | | SERVICES, CORE | VILMA [...] - | | | | | | [place] | | + + + + + + + + | Specimen | + + | Blood - Blood | | (substance) | + + + + + + + | Performing | Address | City/State/Zipcode | Phone Number | | Organization | | | | + + + + + | [facility] | [address] | [place] [address] | | | [place] | | | | + + + [...] | + + + + + | [facility] | [address] | [place] [address] | | | SERVICES, CORE | PARK [...] [facility] | [address] | [place] [address] | | | SERVICES, CORE | VILMA [...] | + + + + + | [facility] | [address] | [place] [address] | | | SERVICES, NATALEE | PARK [...] | + + + + + | [facility] | [address] | [place] [address] | | | SERVICES, CORE | PARK [...] | + + + + + | [employer] | [address] | [place] [address] | | | SERVICES, CORE | VILMA [...] [facility] | [address] | [place] [address] | | | SERVICES, CORE | PARK [...] | + + + + + | [facility] | [address] | [place] [address] | | | SERVICES, CORE | VILMA [...] [facility] | [address] | [place] [address] | | | SERVICES, CORE | VILMA [...] [facility] | [address] | [place] [address] | | | SERVICES, NATALEE | PARK [...] [facility] | [address] | [place] [address] | | | SERVICES, CORE | PARK [...] the MDRD equation recommended by the | [facility] | | National Kidney Disease Education [...] | + + + + + | [facility] | [address] | [place] [address] | | | NATALEE WORTHINGTON | VILMA [...] Note Indications:TPN Procedure location: | | | Unit:[facility] Room: 4 Providers: Attending name: Attending [...] | correct patient, procedure, equipment, sales support representative and site/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 Catheter lot number: [id number] with a length of 55 | | [...] At | + + + | EXAM: HI CHEST 1 VIEW HISTORY: PICC placed-pt ready. [...] Interface - 10/24/2017 3:43 PM PDT EXAM: HI CHEST 1 | | VIEW HISTORY: PICC [...] + + | SELENA PICKETT | [address] [facility] | [place], [place] | | | [facility] | [address] | [address] | | | TESTS | | | [...] | | Surgical Critical Care, PGY7 Pager: [phone] | | + + + CAPILLARY BLOOD [...] PICKETT | [address] | [place], [place] | | | GLORIA GENAO [employer] | [address] | [address] | | | TESTS | | | [...] [facility] | [address] | [place], [place] | | | [facility]INT [facility] CARE | [address] | [address] | | | TESTS | | | [...] | + + + + + | [facility] | [address] | [place] [address] | | | SERVICES, CORE | VILMA [...] | + + + + + | [facility] | [address] | [place] [address] | | | SERVICES, CORE | VILMA [...] RAPHAELAM | [address] | [place], [place] | | | GLORIA GENAO OF [facility] | [address] | [address] | | | TESTS | | | [...] | + + + + + | [facility] | [address] | [place] [address] | | | SERVICES, [facility] | [address] | | | + [...] | + + + + + | [facility] | [address] | [place] [address] | | | SERVICES, CORE | PARK [...] + + + + | QTC-BABRAYDONTT | 452 | ms | [facility] [...] DEPT OF | [address] | [place], [place] | | | CARDIOLOGY | [address] | [address] | | + + + + + IR GASTROSTOMY TUBE EXCHANGE (10/22/2017 2:42 PM PDT) + + | Specimen | + + | | + + + + + | Narrative | Performed At | + + + | Procedure: Gastrostomy tube exchange Primary attending | SELENA | | pavilion cutter: Shade Nix M.D. Preoperative diagnosis: | RADIOLOGY VOICE | | Malfunctioning Gastrostomy tube Postoperative diagnosis: Same | RECOGNITION | | Operations: Operation 1. Removal of existing Gastrostomy tube | | | over a guide wire Operation 2. Placement of 24 Macanese GABRIEL | | | gastrostomy over guide [...] a stiff glide wire the new 24 Macanese gastrostomy tube was | | | inserted. [...] Procedure: | | Gastrostomy tube exchangePrimary attending pavilion cutter: Shade Nix, | | BrynPreoperative diagnosis: Malfunctioning Gastrostomy tubePostoperative diagnosis: | | SameOperations:Operation 1. Removal of existing Gastrostomy tube over a guide | | wireOperation 2. Placement of 24 Macanese GABRIEL gastrostomy over guide wireNo sedation was [...] glide wire the | | new 24 Macanese gastrostomy tube was inserted. The position of [...] stiff g lide wire the new 24 Macanese | |gastrostomy tube was inserted. The position [...] gastrostomy tube although the disk of brice he old gastrostomy tube was positioned at [...] Note | + + | Service Account, Bannerman Res In Interface - 10/22/2017 10:34 AM [...] | + + + + + | [facility] | [address] | [place], [place] | | | CARDIOLOGY | [address] | [address] | | + + + + + [...] | + + + + + | [facility] | [address] | [place] [address] | | | SERVICES, CORE | VILMA [...] | + + + + + | [facility] | [address] | [place] [address] | | | SERVICES, CORE | VILMA [...] DEPT OF | [address] | [place], [place] | | | CARDIOLOGY | [address] | [address] | | + + + + + [...] [facility] | [address] | [place] [address] | | | SERVICES, CORE | PARK [...] [facility] | [address] | [place] [address] | | | SERVICES, CORE | VILMA [...] DEPT OF | [address] | [place], [place] | | | CARDIOLOGY | [address] | [address] | | + + + + + [...] | + + + + + | [facility] | [address] | [place] [address] | | | SERVICES, CORE | PARK [...] | + + + + + | [facility] | [address] | [place] [address] | | | SERVICES, CORE | VILMA [...] DEPT OF | [address] | [place] | | | CARDIOLOGY | [address] | [address] | | + + + + + [...] [facility] | [address] | [place] [address] | | | SERVICES, CORE | PARK [...] [facility] | [address] | [place] [address] | | | NATALEE WORTHINGTON | VILMA [...] + + + + | LAUREN | 476 | ms | [facility] DEPT [...] OF | [address] | [place] | | | CARDIOLOGY | [address] | [address] | | + + + + + [...] the MDRD equation recommended by the | [facility] | | National Kidney Disease Education [...] [facility] | [address] | [place] [address] | | | SERVICES, CORE | PARK [...] | + + + + + | [facility] | [address] | [place] [address] | | | SERVICES, CORE | VILMA [...] DEPT OF | [address] | [place], [place] | | | CARDIOLOGY | [facility] | [address] | | + + + + + CAPILLARY BLOOD GLUCOSE (NO CHG), POC (10/15/2017 6:01 AM PDT) + +---------+ + + + | Component | Value | Ref Range | Performed | Pathologist | | | | | At | Signature | + +---------+ + + + | BLOOD | 134 (H) | 70 - 99 mg/dL | [facility] - | | | GLUCOSE, | [...] PICKETT | [address] | [place], [place] | | | [facility]INT OF CARE | [address] | [address] | | | TESTS | | | [...] | + + + + + | [facility] | [address] | [place] [address] | | | NATALEE WORTHINGTON | VILMA [...] - [facility] | [address] | [place], [place] | | | GLORIA GENAO [employer] | [address] | [address] | | | TESTS | | | [...] DEPT OF | [address] | [place], [place] | | | CARDIOLOGY | [address] | [address] | | + + + + + [...] [facility] | [address] | [place] [address] | | | NATALEE WORTHINGTON | VILMA [...] | + + + + + | [facility] | [address] | [place] [address] | | | SERVICES, CORE | VILMA [...] | + + + + + | [employer] | [address] | [place] [address] | | | SERVICES, CORE | VILMA [...] [facility] | [address] | [place], [place] | | | GLORIA GENAO [employer] | [address] | [address] | | | TESTS | | | [...] RAPHAELAM | [address] | [place] | | | [facility] | [address] | [address] | | | TESTS | | | [...] | + + + + + | [facility] | [address] | [place] [address] | | | SERVICES, CORE | VILMA [...] | + + + + + | [facility] | [address] | [place] [address] | | | SERVICES, NATALEE | [address] | | | + + + + + OPERATION RECORD (10/12/2017 8:50 PM PDT) + + | Procedure Note | + + | Pilar Cotto MD - 10/12/2017 8:50 PM PDT Date of Service: 10/12/2017 | | Attending Surgeon: Chaz Hernandez MD Costumer Assistant(s): Randell Dixon M.D., | | fellow. George [...] saline. We then | | placed a 19-Macanese drain deep into the abscess cavity, tracking [...] 10/12/2017 19:50:06DT: 10/12/2017 20:50:54Job #: | | [id number] | + + X-RAY PORTABLE CHEST 1 VIEW (10/12/2017 7:50 PM PDT) + + | Specimen | + + | | + + + + + | Narrative | Performed At | + + + | EXAM: HI CHEST 1 VIEW HISTORY: Evaluate endotracheal tube [...] Interface - 10/13/2017 9:04 AM PDT EXAM: HI CHEST 1 | | VIEW HISTORY: Evaluate [...] PICKETT | [address] | [place], [place] | | | [facility] | [address] | [address] | | | TESTS | | | [...] the trauma service on 10/12/2017 9:30 AM yaakov y Dae Izaguirre MD. | | | [...] [facility] | [address] | [place] [address] | | | SERVICES, CORE | PARK [...] the MDRD equation recommended by the | [facility] | | National Kidney Disease Education Program. [...] [facility] | [address] | [place] [address] | | | SERVICES, CORE | PARK [...] | + + + + + | [facility] | [address] | [place] [address] | | | NATALEE WORTHINGTON | VILMA [...] DEPT OF | [address] | [place], [place] | | | CARDIOLOGY | [address] | [address] | | + + + + + [...] DEPT OF | [address] | [place], [place] | | | CARDIOLOGY | [address] | [address] | | + + + + + [...] [facility] | [address] | [place] [address] | | | SERVICES, CORE | VILMA [...] [facility] | [address] | [place] [address] | | | SERVICES, CORE | PARK [...] the MDRD equation recommended by the | [facility] | | National Kidney Disease Education Program. [...] | + + + + + | [facility] | [address] | [place] [address] | | | NATALEE WORTHINGTON | [address] | | | + + + + + PROCEDURE NOTE (10/10/2017 10:00 PM PDT) + + + | Narrative | Performed At | + + + | Darius Link MD 10/12/2017 11:11 AM OPERATIVE REPORT | | | DATE OF OPERATION: 10/10/2017 ATTENDING SURGEON: 1. Dr. Hernandez | | | LAWN MOWER: 1. Darius Link MD INDICATIONS: Dysphagia | | | and need for terminal press operator nutrition access PREOPERATIVE DIAGNOSIS: | | | 1.Dysphagia and need for terminal press operator nutrition access | | | POSTOPERATIVE DIAGNOSIS: [...] | | | [place] [id number] Chief Resident | | | Neurosurgery | [...] | + + + + + | [facility] | [address] | [place] [address] | | | SERVICES, CORE | VILMA [...] the MDRD equation recommended by the | [facility] | | National Kidney Disease Education [...] | + + + + + | [facility] | [address] | [place] [address] | | | SERVICES, CORE | PARK [...] [facility] | [address] | [place] [address] | | | SERVICES, NATALEE | [address] | | | + + + + + OPERATION RECORD (10/10/2017 12:40 PM PDT) + + | Procedure Note | + + | Magdiel Stock MD - 10/10/2017 12:40 PM PDT Date of Service: 10/10/2017 Attending | | Surgeon: Magdiel Stock MD Costumer Assistant(s): Cecilia Jackson, | | . Preoperative Diagnoses: [...] correct at the end x2.Cecilia | | A FRANKIE Jackson was present for the critical portions of the procedure as described in | | the note for this encounter.Sonal Nunez MDOHSU [id number] [facility] | | [place] [id number] Orina, MDFAH/MODLDD: | | 10/10/2017 11:52:15DT: 10/10/2017 12:40:41Job #: [id number] | | | | | |I was present for the critical portions of the procedure as described in the note for this encounter. | | | |Magdiel Stock MD | | | |Magdiel Stock MD | |[address] | |[address] [facility] [address] | |[facility] | |[place] [address] | |[phone] | | | | | |Magdiel Stock MD | |FAH/MODL | | | | | | /[id number] | + + X-RAY ABDOMEN 1 VIEW [...] + | [facility] | [address] | [place] [address] | | | [place] | | | [...] + | [facility] | [address] | [place] [address] | | | [place] | | | | + + + [...] 1+ Pseudomonas aeruginosa Refer to culture | [place] - | | collected 10/10/17 at 0903 for susceptibilities No anaerobic | [facility] - | | organisms isolated Gram Stain: No squamous epithelial cells | [place] | | Many polymorphonuclear cells No organisms seen | | + + + + + + + + | Performing | Address | City/State/Zipcode | Phone Number | | Organization | | | | + + + + + | [facility] - | [address] | [place] [address] | | | [place] | | | | + + + [...] detected | [facility] - | | | [place] | + + + + + + + + | Performing | Address | City/State/Zipcode | Phone Number | | Organization | | | | + + + + + | [facility] | [address] | [place] [address] | | | [place] | | | [...] + | [facility] | [address] | [place] [address] | | | [place] | | | [...] Gram Stain: No squamous epithelial cells | [facility] | | Many polymorphonuclear cells No organisms seen | | + + + + + + + + | Performing | Address | City/State/Zipcode | Phone Number | | Organization | | | | + + + + + | [facility] | [address] | [place] [address] | | | [place] | | | [...] + | [facility] | [address] | [place] [address] | | | [place] | | | [...] Rare Pseudomonas aeruginosa Refer to culture | [facility] - | | collected 10/10/17 at 0903 for susceptibilities No anaerobic | [facility] - | | organisms isolated Gram Stain: No squamous epithelial cells | [place] | | Few polymorphonuclear cells No organisms seen | | + + + + + + + + | Performing | Address | City/State/Zipcode | Phone Number | | Organization | | | | + + + + + | [facility] | [address] | [place] [address] | | | [place] | | | [...] No squamous epithelial cells No polymorphonuclear | [facility] - | | cells No organisms seen | [place] | + + + + + + + + | Performing | Address | City/State/Zipcode | Phone Number | | Organization | | | | + + + + + | [facility] | [address] | [place] [address] | | | [place] | | | [...] + | [facility] | [address] | [place] [address] | | | [place] | | | | + + + [...] Gram Stain: No squamous epithelial cells | [place] | | Moderate polymorphonuclear cells No organisms seen | | + + + + + + + + | Performing | Address | City/State/Zipcode | Phone Number | | Organization | | | | + + + + + | [facility] | [address] | [place] [address] | | | [place] | | | | + + + [...] detected | [facility] - | | | [place] | + + + + + + + + | Performing | Address | City/State/Zipcode | Phone Number | | Organization | | | | + + + + + | [facility] | [address] | [place] [address] | | | [place] | | | [...] + | [facility] | [address] | [place] [address] | | | [place] | | | [...] + | [facility] | [address] | [place] [address] | | | [place] | | | | + + + [...] + | [facility] | [address] | [place] [address] | | | [facility] | | | | + + + [...] + | [facility] | [address] | [place] [address] | | | [place] | | | | + + + [...] Gram Stain: No squamous epithelial cells | [place] | | Moderate polymorphonuclear cells No organisms seen | | + + + + + + + + | Performing | Address | City/State/Zipcode | Phone Number | | Organization | | | | + + + + + | [facility] | [address] | [place] [address] | | | [place] | | | | + + + [...] + | [facility] | [address] | [place] [address] | | | [place] | | | | + + + [...] [facility] | [address] | [place] [address] | | | SERVICES, CORE | PARK [...] | + + + + + | [facility] | [address] | [place] [address] | | | SERVICES, CORE | PARK [...] [facility] | [address] | [place] [address] | | | ELIN, NATALEE | [address] [...] | + + + + + | [facility] | [address] | [place] [address] | | | SERVICES, NATALEE | [address] [...] + + + | ANA LILIA-HALIMA | 493 | ms | [facility] [...] DEPT OF | [address] | [place], [place] | | | CARDIOLOGY | [address] | [address] | | + + + + + [...] + + + + | PRODUCT | [id number] | | [facility] | | | UNIT [...] + + + + | EXPIRATION | [id number] | | [facility] | | | DATE [...] + + + + | BLOOD | [id number] | | [facility] | | | PRODUCT [...] [facility] | [address] | [place] [address] | | | SERVICES, | [address] [...] + + + + | PRODUCT | [id number] | | [facility] | | | UNIT [...] + + + + | EXPIRATION | [id number] | | [facility] | | | DATE [...] + + + + | BLOOD | [id number] | | [facility] | | | PRODUCT [...] | + + + + + | [facility] | [address] | [place] [address] | | | SERVICES, | [address] [...] SELENA MCNAIR | [address] | [place] [address] | | | SERVICES, | [address] [...] [facility] | [address] | [place] [address] | | | SERVICES, | [address] [...] | + + + + + | [facility] | [address] | [place] [address] | | | SERVICES, | [address] [...] | + + + + + | [facility] | [address] | [place] [address] | | | SERVICES, CORE | PARK [...] DEPT OF | [address] | [place], [place] | | | CARDIOLOGY | [address] | [address] | | + + + + + [...] Note | + + | Service Account, FatTail In Interface - 10/08/2017 10:47 AM PDT [...] P[facility] | [address] | [place], [place] | | | [facility] | [address] | [address] | | | TESTS | | | [...] | + + + + + | [facility] | [address] | [place] [address] | | | SERVICES, CORE | [address] | | | + + + + + MAGNESIUM, PLASMA (10/08/2017 6:00 AM PDT) + +-------+ + + + | Component | Value | Ref Range | Performed | Pathologist | | | | | At | Signature | + +-------+ + + + | MAGNESIUM,P | 2.2 | 1.6 - 2.6 mg/dL | [facility] | | | LISA | | | [...] [facility] | [address] | [place] [address] | | | SERVICES, NATALEE | [address] [...] | + + + + + | [facility] | [address] | [place] [address] | | | SERVICES, CORE | VILMA [...] [facility] | [address] | [place], [place] | | | [facility] | [address] | [address] | | | TESTS | | | [...] [facility] | [address] | [place], [place] | | | [facility] | [address] | [address] | | | TESTS | | | [...] [facility] | [address] | [place], [place] | | | GLORIA GENAO OF [employer] | [address] | [address] | | | TESTS | | | [...] [facility] | [address] | [place], [place] | | | [facility]ARE | [address] | [address] | | | TESTS | | | [...] | [facility] | [address] | [place], [place] | | | [facility] | [address] | [address] | | | TESTS | | | [...] | + + + + + | [facility] | [address] | [place] [address] | | | SERVICES, NAATLEE | [address] | | | + [...] | + + + + + | [facility] | [address] | [place] [address] | | | SERVICES, CORE | VIL[address] [...] | + + + + + | [facility] | [address] | [place] [address] | | | SERVICES, CORE | VILMA [...] 99 | 70 - 99 mg/dL | [facility] - | | | GLUCOSE, | [...] [facility] | [address] | [place] | | | [facility] | [address] | [address] | | | TESTS | | | [...] [facility] | [address] | [place], [place] | | | GLORIA GE[employer] | [address] | [address] | | | TESTS | | | [...] DEPT OF | [address] | [place], [place] | | | CARDIOLOGY | [facility] | [address] | | + + + + + [...] [facility] | [address] | [place] | | | GLORIA GENAO OF CARE | [address] | [address] | | | TESTS | | | [...] [facility] | [address] | [place] [address] | | | NATALEE WORTHINGTON | [address] [...] | + + + + + | [facility] | [address] | [place] [address] | | | SERVICES, CORE | [address] [...] | + + + + + | [facility] | [address] | [place] [address] | | | SERVICES, CORE | VILMA [...] (H) | 70 - 99 mg/dL | [facility] - | | | GLUCOSE, | [...] [facility] | [address] | [place], [place] | | | [facility] | [address] | [address] | | | TESTS | | | [...] [facility] | [address] | [place], [place] | | | [facility] | [address] | [address] | | | TESTS | | | [...] [facility] | [address] | [place], [place] | | | [facility] | [address] | [address] | | | TESTS | | | [...] + + + | SELENA [facility] | [address] | [place], [place] | | | [facility] | [address] | [address] | | | TESTS | | | [...] + + + + | [facility] | 441 | ms | [facility] [...] OF | [address] | [place], [place] | | | CARDIOLOGY | [address] | [address] | | + + + + + [...] | + + + + + | [facility] | [address] | [place] [address] | | | SERVICES, CORE | P[facility] [...] [facility] | [address] | [place] [address] | | | SERVICES, CORE | PARK [...] | + + + + + | [facility] | [address] | [place] [address] | | | NATALEE WORTHINGTON | VILMA [...] (H) | 70 - 99 mg/dL | [facility] - | | | GLUCOSE, | [...] [facility] | [address] | [place], [place] | | | [facility] | [address] | [address] | | | TESTS | | | [...] [facility] | [address] | [place], [place] | | | GLORIA GENAO OF GM | [facility] | [address] | | | TESTS | | | [...] [facility] | [address] | [place], [place] | | | GLORIA GENAO OF CARE | [facility] | [address] | | | TESTS | | | [...] (H) | 70 - 99 mg/dL | [facility] - | | | GLUCOSE, | [...] [facility] | [address] | [place], [place] | | | [facility] | [address] | [address] | | | TESTS | | | [...] [facility] | [address] | [place], [place] | | | GLORIA GENAO OF [employer] | [facility] [facility] | [address] | | | TESTS | | | [...] | + + + + + | [facility] | [address] | [place] [address] | | | SERVICES, CORE | PARK [...] [facility] | [address] | [place] [address] | | | ELIN, NATALEE | VILMA [...] | + + + + + | [facility] | [address] | [place] [address] | | | SERVICES, CORE | VILMA [...] [facility] | [address] | [place], [place] | | | [place] POINT OF CARE | [facility] | [address] | | | TESTS | | | [...] | [facility] | [address] | [place], [place] | | | [place] POINT OF CARE | [address] | [address] | | | TESTS | | | [...] | + + + + + | [facility] | [address] | [place] [address] | | | SERVICES, CORE | VILMA [...] by | | | | | | [employer],500 | | | | | | Rogelio Pickard, [facility] [place] | | | | | | [phone] | | | | | | [phone].[employer]. | | | | | | Gui [...] [facility] | [address] | [place], [place] | | | [facility] | | [id number] | | + + + + + [...] [facility] | [address] | [place] [address] | | | SERVICES, CORE | PARK [...] [facility] | [address] | [place] [address] | | | SERVICES, CORE | PARK [...] modified from | [facility] | | original central office frame wirer's approved specifications. The performance | LABORATORY | | of the IMPLEMENTATION ADVISOR HIV Combo test, with or without confirmation, [...] | + + + + + | [facility] | [address] | [place] [address] | | | SERVICES, SPECIAL | VILMA [...] (H) | 70 - 99 mg/dL | [facility] | | | GLUCOSE, | [...] + + + | [facility] | [address] | [place], [place] | | | [place] POINT OF CARE | [address] | [address] | | | TESTS | | | [...] [facility] | [address] | [place], [place] | | | [place] POINT OF CARE | [address] | [address] | | | TESTS | | | [...] [facility] | [address] | [place] [address] | | | SERVICES, NATALEE | PARK [...] [facility] | [address] | [place] [address] | | | SERVICES, CORE | VILMA [...] the MDRD equation recommended by the | [facility] | | National Kidney Disease Education Program. [...] | + + + + + | [facility] | [address] | [place] [address] | | | NATALEE WORTHINGTON | VILMA [...] + | [facility] | [address] | [place], [place] | | | [place] OF [facility] | [address] | [address] | | | TESTS | | | [...] [facility] | [address] | [place], [place] | | | GLORIA GENAO OF CARE | [address] | [address] | | | TESTS | | | [...] + + + + | QTC-BAZETT | 484 | ms | [facility] [...] DEPT OF | [address] | [place], [place] | | | CARDIOLOGY | [address] | [address] | | + + + + + [...] At | + + + | EXAM: HI CHEST 1 VIEW HISTORY: Evaluate PICC placement [...] Note | + + | Service Account, Bannerman Res In Interface - 10/02/2017 2:07 PM PDT EXAM: HI CHEST 1 | | VIEW HISTORY: Evaluate [...] [facility] | [address] | [place], [place] | | | GLORIA GENAO OF GM | [address] | [address] | | | TESTS | | | | + + + + + X-RAY PORTABLE CHEST 1 VIEW (10/02/2017 8:56 AM PDT) + + | Specimen | + + | | + + + + + | Narrative | Performed At | + + + | EXAM: HI CHEST 1 VIEW HISTORY: new leukocytosis, eval [...] Note | + + | Service Account, Bannerman Res In Interface - 10/02/2017 10:27 AM PDT EXAM: HI CHEST 1 | | VIEW HISTORY: new [...] [facility] | [address] | [place], [place] | | | GLORIA GENAO OF [facility] | [address] | [address] | | | TESTS | | | [...] [facility] | [address] | [place] [address] | | | NATALEE WORTHINGTON | VILMA [...] | + + + + + | [facility] | [address] | [place] [address] | | | SERVICES, CORE | VILMA [...] | + + + + + | [facility] | [address] | [place] [address] | | | SERVICES, CORE | VILMA [...] P[facility]T | [address] | [place], [place] | | | [place] POINT OF CARE | [address] | [address] | | | TESTS | | | [...] [facility] | [address] | [place], [place] | | | GLORIA GENAO OF CARE | [address] | [address] | | | TESTS | | | [...] Parsons MD Dictation initiated: Edelmira Dumont | | MD Issa 10/01/2017 2:08 PM | | | |In [...] [facility] | [address] | [place], [place] | | | GLORIA GENAO OF CARE | [address] | [address] | | | TESTS | | | [...] Note | + + | Service Account, FatTail In Interface - 10/01/2017 11:34 AM PDT [...] P[facility]ETT | [address] | [place], [place] | | | GLORIA GENAO OF GM | [facility] | [address] | | | TESTS | | | [...] [facility] | [address] | [place] [address] | | | NATALEE WORTHINGTON | VILMA [...] | + + + + + | [facility] | [address] | [place] [address] | | | SERVICES, CORE | PARK [...] | + + + + + | [facility] | [address] | [place] [address] | | | SERVICES, CORE | PARK [...] (H) | 70 - 99 mg/dL | [facility] | | | GLUCOSE, | | [...] P[facility]ET[facility] | [address] | [place], [place] | | | GLORIA GENAO OF GM | [facility] | [address] | | | TESTS | | | [...] [facility] | [address] | [place], [place] | | | GLORIA GENAO OF [facility] | [address] | [address] | | | TESTS | | | [...] + + + + | LAUREN | 481 | ms | [facility] [...] DEPT OF | [address] | [place], [place] | | | CARDIOLOGY | [address] | [address] | | + + + + + [...] P[facility]ETT | [address] | [place], [place] | | | GLORIA GENAO OF GM | [address] | [address] | | | TESTS | | | [...] [facility] | [address] | [place], [place] | | | [place]ICK POINT OF CARE | [address] | [address] | | | TESTS | | | [...] [facility] | [address] | [place] [address] | | | SERVICES, CORE | PARK [...] [facility] | [address] | [place] [address] | | | SERVICES, CORE | PARK [...] the MDRD equation recommended by the | [facility] | | National Kidney Disease Education Program. [...] + + | Performing | Address | City/State[facility] | Phone Number | | Organization | | | | + + + + + | [facility] | [address] | [place] [address] | | | NATALEE WORTHINGTON | VILMA [...] [facility] | [address] | [place], [place] | | | GLORIA GENAO OF GM | [address] | [address] | | | TESTS | | | [...] (H) | 70 - 99 mg/dL | [facility] - | | | GLUCOSE, | [...] P[facility] | [address] | [place], [place] | | | GLORIA GENAO OF CARE | [address] | [address] | | | TESTS | | | [...] | | POC | | | GLORIA GNEAO | | | | | | OF [...] [facility] | [address] | [place], [place] | | | [place] POINT OF CARE | [address] | [address] | | | TESTS | | | [...] + + | QTC-BAMARIA DEL CARMEN | 442 | ms | [facility] [...] DEPT OF | [address] | [place], [place] | | | CARDIOLOGY | [address] | [address] | | + + + + + [...] [facility] | [address] | [place], [place] | | | CH[place]ICK POINT OF CARE | [address] | [address] | | | TESTS | | | [...] | + + + + + | [facility] | [address] | [place] [address] | | | SERVICES, CORE | PARK [...] [facility] | [address] | [place] [address] | | | SERVICES, CORE | PARK [...] | + + + + + | [facility] | [address] | [place] [address] | | | SERVICES, NATALEE | PARK [...] [facility] | [address] | [place], [place] | | | [facility]ICK POINT OF CARE | [address] | [address] | | | TESTS | | | [...] - [facility] | [address] | [place], [place] | | | CH[place]ICK POINT OF CARE | [address] | [address] | | | TESTS | | | [...] P[facility]T | [address] | [place] | | | GLORIA GENAO OF GM | [address] | [address] | | | TESTS | | | [...] DEPT OF | [address] | [place] | | | CARDIOLOGY | [facility] | [address] | | + + + + + CAPILLARY BLOOD GLUCOSE (NO CHG), POC (09/28/2017 6:47 AM PDT) + +---------+ + + + | Component | Value | Ref Range | Performed | Pathologist | | | | | At | Signature | + +---------+ + + + | BLOOD | 147 (H) | 70 - 99 mg/dL | [facility] | | | GLUCOSE, | [...] PICK[facility]T | [address] | [place], [place] | | | CH[place]WICK POINT OF CARE | [address] | [address] | | | TESTS | | | [...] | + + + + + | [facility] | [address] | [place] [address] | | | NATALEE WORTHINGTON | PARK [...] | + + + + + | [facility] | [address] | [place] [address] | | | ELIN, NATALEE | PARK [...] | + + + + + | [facility] | [address] | [place] [address] | | | SERVICES, CORE | VILMA [...] (H) | 70 - 99 mg/dL | [facility] - | | | GLUCOSE, | | [...] P[facility]T | [address] | [place], [place] | | | GLORIA GENAO OF GM | [facility] | [address] | | | TESTS | | | [...] R[facility]HAEL[facility] | [address] | [place] | | | [facility] [facility] | [address] | [address] | | | TESTS | | | [...] [facility] | [address] | [place], [place] | | | GLORIA GENAO OF CARE | [address] | [address] | | | TESTS | | | [...] - [facility] | [address] | [place], [place] | | | [place] POINT OF [facility] | [address] | [address] | | | TESTS | | | [...] | + + + + + | [employer] | [address] | [place] [address] | | | SERVICES, CORE | PARK [...] [facility] | [address] | [place] [address] | | | SERVICES, [facility] | [address] | | | + [...] | + + + + + | [facility] | [address] | [place] [address] | | | [facility], [facility] | [address] | | | + + + + + CAPILLARY BLOOD GLUCOSE (NO CHG), POC (09/27/2017 12:41 AM PDT) + +---------+ + + + | Component | Value | Ref Range | Performed | Pathologist | | | | | At | Signature | + +---------+ + + + | BLOOD | 169 (H) | 70 - 99 mg/dL | [facility] - | | | GLUCOSE, | [...] PICKETT | [address] | [place], [place] | | | GLORIA GENAO OF CARE | [facility] | [address] | | | TESTS | | | [...] [facility] | [address] | [place], [place] | | | GLORIA GENAO OF [employer] | [address] | [address] | | | TESTS | | | [...] DEPT OF | [address] | [place], [place] | | | CARDIOLOGY | [address] | [address] | | + + + + + [...] PICK[facility] | [address] | [place], [place] | | | GLORIA GENAO OF GM | [address] | [address] | | | TESTS | | | [...] [facility] | [address] | [place], [place] | | | GLORIA GENAO OF CARE | [address] | [address] | | | TESTS | | | [...] [facility] | [address] | [place], [place] | | | [place] [facility]INT OF CARE | [address] | [address] | | | TESTS | | | [...] | + + + + + | [facility] | [address] | [place] [address] | | | SERVICES, NATALEE | VILMA [...] | + + + + + | [facility] | [address] | [place] [address] | | | SERVICES, CORE | VILMA [...] | + + + + + | [facility] | [address] | [place] [address] | | | SERVICES, CORE | VILMA [...] (H) | 70 - 99 mg/dL | [facility] - | | | GLUCOSE, | [...] PICKETT | [address] | [place], [place] | | | CH[place] POINT OF CARE | [address] | [address] | | | TESTS | | | [...] report as now presented. Final signature: Daniel Dc | | MD Aleksander 09/25/2017 12:31 PM [...] | + + + + + | [facility] | [address] | [place] [address] | | | SERVICES, CORE | PARK [...] [facility] | [address] | [place] [address] | | | SERVICES, CORE | PARK [...] the MDRD equation recommended by the | [facility] | | National Kidney Disease Education Program. [...] [facility] | [address] | [place] [address] | | | SERVICES, CORE | VILMA [...] DEPT OF | [address] | [place], [place] | | | CARDIOLOGY | [address] | [address] | | + + + + + [...] Note | + + | Service Account, Bannerman Res In Interface - 09/24/2017 4:09 PM [...] | + + + + + | [facility] | [address] | [place] [address] | | | SERVICES, CORE | VILMA [...] [facility] | [address] | [place] [address] | | | SERVICES, CORE | PARK [...] | + + + + + | [facility] | [address] | [place] [address] | | | NATALEE WORTHINGTON | VILMA [...] | + + + + + | [facility] | [address] | [place] [address] | | | SERVICES, CORE | [address] | | | + + + + + MAGNESIUM, PLASMA (09/23/2017 4:04 AM PDT) + +-------+ + + + | Component | Value | Ref Range | Performed | Pathologist | | | | | At | Signature | + +-------+ + + + | MAGNESIUM,P | 2.1 | 1.6 - 2.6 mg/dL | [facility] | | | L[facility]MA | | | [...] [facility] | [address] | [place] [address] | | | LEIN, NATALEE | VILMA [...] | + + + + + | [facility] | [address] | [place] [address] | | | SERVICES, CORE | VILMA [...] [facility] | [address] | [place] | | | [place] POINT OF CARE | [address] | [address] | | | TESTS | | | [...] (H) | 70 - 99 mg/dL | [facility] - | | | GLUCOSE, | | [...] P[facility] | [address] | [place] | | | GLORIA GENAO OF [facility] | [address] | [address] | | | TESTS | | | [...] [facility] | [address] | [place] [address] | | | NATALEE WORTHINGTON | PARK [...] + + + + | QTC-SAURABHTT | 445 | ms | [facility] [...] + + | [facility] | [address] | [place], [place] | | | CARDIOLOGY | [address] | [address] | | + + + + + [...] [facility] | [address] | [place] [address] | | | SERVICES, CORE | VILMA [...] [facility] | [address] | [place] [address] | | | SERVICES, CORE | PARK [...] the MDRD equation recommended by the | [facility] | | National Kidney Disease Education Program. [...] | + + + + + | [facility] | [address] | [place] [address] | | | NATALEE WORTHINGTON | PARK [...] [facility] | [address] | [place] | | | [place] [facility] | [address] | [address] | | | TESTS | | | [...] [facility] | [address] | [place] [address] | | | NATALEE WORTHINGTON | VILMA [...] | + + + + + | [facility] | [address] | [place] [address] | | | SERVICES, NATALEE | VILMA [...] | + + + + + | [facility] | [address] | [place] [address] | | | SERVICES, CORE | VILMA [...] Note | + + | Service Account, FatTail In Interface - 09/20/2017 7:50 PM PDT [...] as now presented. Final signature: Prabhakar Castro | 09/20/2017 6:24 PM Preliminary: Mega Yeager [...] 09/20/2017 | | 6:24 PM Preliminary: Mega Yeaegr MD | |FINDINGS/IMPRESSION: | | | |Tip [...] Note | + + | Service Account, Bannerman Res In Interface - 09/20/2017 6:26 PM [...] Note | + + | Service Account, Bannerman Res In Interface - 09/20/2017 5:17 PM [...] + + + + | QTC-BABRAYDONTT | 444 | ms | [facility] [...] OF | [address] | [place], [place] | | | CARDIOLOGY | [facility] | [address] | | + + + + + [...] | + + + + + | [facility] | [address] | [place] [address] | | | SERVICES, CORE | VILMA [...] [facility] | [address] | [place] [address] | | | SERVICES, CORE | PARK [...] the MDRD equation recommended by the | [facility] | | National Kidney Disease Education [...] | + + + + + | [facility] | [address] | [place] [address] | | | SERVICES, CORE | PARK [...] [facility] | [address] | [place] [address] | | | SERVICES, CORE | PARK [...] [facility] | [address] | [place] [address] | | | SERVICES, CORE | PARK [...] the MDRD equation recommended by the | [facility] | | National Kidney Disease Education [...] | + + + + + | [facility] | [address] | [place] [address] | | | SERVICES, CORE | PARK [...] [facility] | [address] | [place] [address] | | | SERVICES, CORE | PARK [...] [facility] | [address] | [place] [address] | | | SERVICES, CORE | PARK [...] the MDRD equation recommended by the | [facility] | | National Kidney Disease Education [...] | + + + + + | [facility] | [address] | [place] [address] | | | NATALEE WORTHINGTON | VILMA [...] Note | + + | Service Account, Bannerman Res In Interface - 09/17/2017 11:53 AM [...] | + + + + + | [facility] | [address] | [place] [address] | | | NATALEE WORTHINGTON | VILMA [...] | + + + + + | [facility] | [address] | [place] [address] | | | SERVICES, CORE | VILMA [...] + + + + + | [facility] | [address] | [place] [address] | | | SERVICES, CORE | [address] | | | + + + + + X-RAY PORTABLE CHEST PICC LINE CHECK (09/16/2017 1:11 PM PDT) + + | Specimen | + + | | + + + + + | Narrative | Performed At | + + + | EXAM: HI CHEST PICC LINE CHECK HISTORY: PICC placement [...] Interface - 09/16/2017 1:34 PM PDT EXAM: HI CHEST | | PICC LINE CHECK HISTORY: [...] At | + + + | EXAM: HI CHEST PICC LINE CHECK HISTORY: Evaluate PICC [...] Interface - 09/16/2017 11:41 AM PDT EXAM: HI CHEST | | PICC LINE CHECK HISTORY: [...] | + + + + + | [facility] | [address] | [place] [address] | | | NATALEE WORTHINGTON | VILMA [...] | + + + + + | [facility] | [address] | [place] [address] | | | SERVICES, CORE | VILMA [...] | + + + + + | [facility] | [address] | [place] [address] | | | SERVICES, CORE | [address] | | | + + + + + X-RAY PORTABLE CHEST 1 VIEW (09/15/2017 3:28 PM PDT) + + | Specimen | + + | | + + + + + | Narrative | Performed At | + + + | EXAM: HI CHEST 1 VIEW HISTORY: COMPARISON: None. | [...] Account, Kostas Res In Interface - 09/15/2017 6:45 PM PDT EXAM: HI CHEST 1 | | VIEW HISTORY: COMPARISON: [...] At | + + + | EXAM: HI CHEST PICC LINE CHECK HISTORY: PICC COMPARISON: [...] Interface - 09/15/2017 6:43 PM PDT EXAM: HI CHEST | | PICC LINE CHECK HISTORY: [...] Note Indications:TPN Procedure | | | location: Unit:[facility] Room: #12 Providers: Attending name: | | [...] verifies correct patient, procedure, equipment, sales support representative | | | and site/side marked as [...] | area Basilic vein. Catheter lot number: [id number] with a length of 55 | | [...] | + + + + + | [facility] | [address] | [place] [address] | | | SERVICES, CORE | [address] [...] | + + + + + | [facility] | [address] | [place] [address] | | | SERVICES, [facility] | [address] | | | + [...] the MDRD equation recommended by the | [facility] | | National Kidney Disease Education [...] | + + + + + | [facility] | [address] | [place] [address] | | | SERVICES, [facility] | [address] | | | + + + + + X-RAY SPINE CERVICAL 2 VIEWS (09/14/2017 4:51 PM PDT) + + | Specimen | + + | | + + + + + | Narrative | Performed At | + + + | EXAM: SPINE CERVICAL 2 VIEWS HISTORY: Cervical spine fractures | [facility] | | COMPARISON: 08/31/17 FINDINGS: The [...] [facility] | [address] | [place] [address] | | | NATALEE WORTHINGTON | PARK [...] | + + + + + | [facility] | [address] | [place] [address] | | | SERVICES, NATALEE | [address]IL[address] [...] | + + + + + | [facility] | [address] | [place] [address] | | | SERVICES, CORE | PARK [...] [facility] | [address] | [place] [address] | | | NATALEE WORTHINGTON | VILMA [...] | + + + + + | [facility] | [address] | [place] [address] | | | SERVICES, CORE | VILMA [...] | + + + + + | [facility] | [address] | [place] [address] | | | SERVICES, CORE | PARK [...] | + + + + + | [facility] | [address] | [place] [address] | | | SERVICES, CORE | [address] | | | + + + + + MAGNESIUM, PLASMA (09/12/2017 6:33 AM PDT) + +-------+ + + + | Component | Value | Ref Range | Performed | Pathologist | | | | | At | Signature | + +-------+ + + + | MAGNESIUM,P | 2.3 | 1.6 - 2.6 mg/dL | [facility] | | | LASMA | | | [...] [facility] | [address] | [place] [address] | | | SERVICES, CORE | PARK [...] the MDRD equation recommended by the | VASU | | National Kidney Disease Education Program. [...] | + + + + + | [facility] | [address] | [place] [address] | | | NATALEE WORTHINGTON | VILMA [...] [facility] | [address] | [place] [address] | | | NATALEE WORTHINGTON | VILMA [...] | + + + + + | [facility] | [address] | [place] [address] | | | SERVICESNATALEE | [address] [...] | + + + + + | [facility] | [address] | [place] [address] | | | SERVICES, CORE | VILMA [...] | + + + + + | [facility] | [address] | [place] [address] | | | SERVICES, CORE | VILMA [...] Note | + + | Service Account, FatTail In Interface - 09/10/2017 2:08 PM PDT [...] Note | + + | Service Account, FatTail In Interface - 09/10/2017 2:31 PM PDT [...] At | + + + | STUDY: HI CHEST 1 VIEW 09/10/17 07:02:01 HISTORY: Possible [...] Note | + + | Service Account, Bannerman Res In Interface - 09/10/2017 9:25 AM PDT STUDY: HI CHEST 1 | | VIEW 09/10/17 07:02:01 [...] + + | [facility] | [address] | [place] [address] | | | SERVICES, CORE | PARK [...] [facility] | [address] | [place] [address] | | | SERVICES, CORE | PARK [...] | + + + + + | [facility] | [address] | [place] [address] | | | SERVICES, CORE | VILMA [...] [facility] | [address] | [place] [address] | | | SERVICES, CORE | PARK [...] the MDRD equation recommended by the | VASU | | National Kidney Disease Education Program. [...] | + + + + + | [facility] | [address] | [place] [address] | | | NATALEE WORTHINGTON | VILMA [...] [facility]PT OF | [address] | [place], [place] | | | CARDIOLOGY | [address] | [address] | | + + + + + [...] Note | + + | Service Account, Bannerman Res In Interface - 09/10/2017 11:11 AM [...] [facility] | [address] | [place], [place] | | | [facility] | [address] | [address] | | | TESTS | | | [...] | + + + + + | [facility] | [address] | [place] [address] | | | NATALEE WORTHINGTON | PARK [...] [facility] | [address] | [place] [address] | | | SERVICES, CORE | PARK [...] | + + + + + | [facility] | [address] | [place] [address] | | | NATALEE WORTHINGTON | VILMA [...] [facility] | [address] | [place] [address] | | | SERVICES, CORE | PARK [...] [facility] | [address] | [place] [address] | | | SERVICES, CORE | PARK [...] | + + + + + | [facility] | [address] | [place] [address] | | | SERVICES, CORE | PARK [...] [facility] | [address] | [place] [address] | | | SERVICES, NATALEE | VILMA [...] GEET OF | [address] | [place], [place] | | | CARDIOLOGY | [address] | [address] | | + + + + + X-RAY PORTABLE CHEST 1 VIEW (09/07/2017 6:12 AM PDT) + + | Specimen | + + | | + + + + + | Narrative | Performed At | + + + | EXAM: HI CHEST 1 VIEW HISTORY: Post extubation COMPARISON: [...] Note | + + | Service Account, RadiUberGrape Res In Interface - 09/07/2017 10:46 AM PDT EXAM: HI CHEST 1 | | VIEWHISTORY: Post extubationCOMPARISON: [...] | + + + + + | [facility] | [address] | [place] [address] | | | NATALEE WORTHINGTON | PARK [...] | + + + + + | [facility] | [address] | [place] [address] | | | SERVICES, CORE | VILMA [...] + + + + + | [facility] | [address] | [place] [address] | | | SERVICES, CORE | VILMA [...] DEPT OF | [address] | [place], [place] | | | CARDIOLOGY | [facility] | [address] | | + + + + + [...] | | | attempt. Midline lot number [id number]; there was positive blood | | | [...] [facility] | [address] | [place] [address] | | | SERVICES, CORE | PARK [...] | + + + + + | [facility] | [address] | [place] [address] | | | SERVICES, [facility] | [address] | | | + + + + + X-RAY PORTABLE CHEST 1 VIEW (09/05/2017 5:33 AM PDT) + + | Specimen | + + | | + + + + + | Narrative | Performed At | + + + | EXAM: HI CHEST 1 VIEW HISTORY: Evaluation after chest tube | [facility] | | removal. COMPARISON: Yesterday FINDINGS: Endotracheal [...] Interface - 09/05/2017 10:16 AM PDT EXAM: HI CHEST 1 | | VIEW HISTORY: Evaluation [...] | + + + + + | [facility] | [address] | [place] [address] | | | SERVICES, CORE | VILMA [...] | + + + + + | [facility] | [address] | [place] [address] | | | SERVICES, CORE | VILMA [...] [facility] | [address] | [place] [address] | | | SERVICES, CORE | PARK [...] | + + + + + | [facility] | [address] | [place] [address] | | | SERVICES, [facility] | [address] | | | + [...] tomorrow morning. CB Henson Pager / ID: [phone] | | + + + CULTURE, SPUTUM [...] seen | AIRPORT - | | | [facility] | + + + + + + + + | Performing | Address | City/State/Zipcode | Phone Number | | Organization | | | | + + + + + | [facility] | [address] | [place] [address] | | | [place] | | | [...] | + + + + + | [facility] | [address] | [place] [address] | | | ELIN, NATALEE | VILMA [...] | [facility] | | | GRAVITY | [place] performed by | | LABORATORY | | [...] [facility] | [address] | [place] [address] | | | SERVICES, CORE | VILMA [...] | + + + + + | [facility] | [address] | [place] [address] | | | SERVICES, CORE | PARK [...] [facility] | [address] | [place] [address] | | | SERVICES, CORE | PARK [...] + + + | ANA LILIA-HALIMA | 474 | ms | [facility] [...] [facility] | [address] | [place], [place] | | | CARDIOLOGY | [address] | [address] | | + + + + + X-RAY PORTABLE CHEST 1 VIEW (09/04/2017 7:04 AM PDT) + + | Specimen | + + | | + + + + + | Narrative | Performed At | + + + | EXAM: HI CHEST 1 VIEW HISTORY: Hypoxia. Intubated. | [...] Interface - 09/04/2017 9:49 AM PDT EXAM: HI CHEST 1 | | VIEW HISTORY: Hypoxia. [...] | + + + + + | [facility] | [address] | [place] [address] | | | SERVICES, CORE | VILMA [...] [facility] | [address] | [place] [address] | | | SERVICES, CORE | PARK [...] the MDRD equation recommended by the | [facility] | | National Kidney Disease Education [...] | + + + + + | [facility] | [address] | [place] [address] | | | SERVICES, CORE | [address] | | | + + + + + MAGNESIUM, PLASMA (09/04/2017 12:29 AM PDT) + +-------+ + + + | Component | Value | Ref Range | Performed | Pathologist | | | | | At | Signature | + +-------+ + + + | MAGNESIUM,P | 1.9 | 1.6 - 2.6 mg/dL | [facility] | | | [facility] | | | [...] [facility] | [address] | [place] [address] | | | SERVICES, NATALEE | VILMA [...] [facility] | [address] | [place], [place] | | | CH[facility]WICK POINT OF CARE | [address] | [address] | | | TESTS | | | [...] [facility] | [address] | [place], [place] | | | [facility] POINT OF CARE | [address] | [address] | | | TESTS | | | [...] [facility] | [address] | [place], [place] | | | GLORIA GENAO OF CARE | [address] | [address] | | | TESTS | | | [...] - [facility] | [address] | [place], [place] | | | [facility] | [address] | [address] | | | TESTS | | | [...] | | + +---------+ + + | [facility] | | | | | [facility] | | | [...] detected | AIRPORT - | | | [place] | + + + + + + + + | Performing | Address | City/State/Zipcode | Phone Number | | Organization | | | | + + + + + | [facility] - | [address] | [place] [address] | | | [facility] | | | | + + + [...] | + + + + + | [facility] | [address] | [place] [address] | | | SERVICES, CORE | VILMA [...] Note | + + | Service Account, FatTail In Interface - 09/03/2017 9:54 AM PDT [...] detected | AIRPORT - | | | [facility] | + + + + + + + + | Performing | Address | City/State/Zipcode | Phone Number | | Organization | | | | + + + + + | [facility] - | [address] | [place] [address] | | | [place] | | | | + + + [...] [facility] | [address] | [place] [address] | | | ELIN, CORE | VILMA [...] | + + + + + | [facility] | [address] | [place] [address] | | | SERVICES, NATALEE | VILMA [...] + + | [facility] | [address] | [place] [address] | | | SERVICES, CORE | VILMA [...] | + + + + + | [facility] | [address] | [place] [address] | | | SERVICES, [facility] | [address] | | | + + + + + OPERATION RECORD (09/02/2017 6:53 PM PDT) + + | Procedure Note | + + | Fidelina Shields MD - 09/02/2017 6:53 PM PDT Date of Service: 09/02/2017 | | Attending Surgeon: Fidelina Shields MD Costumer Assistant(s): | | Ajay Butts MD, resident. Preoperative [...] 09/02/2017 18:15:29DT: 09/02/2017 18:53:52Job #: | | [id number] to federal Medicare and Medicaid regulations I was present for | | the entire procedure.Fidelina Shields MDAssistant ProfessorDepartment of SurgeryOffice: | | [phone]: [id number] has been electronically signed by Fidelina Shields MD, | | 09/03/2017 at 9:11 AM. | | | | | |Fidelina Shields MD | |Production Planner | |Department of Surgery | |Office: [phone] | |Pager: [phone] | | | |This has been electronically [...] | + + + + + | [facility] | [address] | [place] [address] | | | SERVICES, CORE | PARK [...] | + + + + + | [facility] | [address] | [place] [address] | | | SERVICES, CORE | PARK [...] + | [facility] - | [address] | [place] [address] | | | [facility] | | | | + + + [...] [facility] | [address] | [place] [address] | | | SERVICES, NATALEE | VILMA [...] | + + + + + | [facility] | [address] | [place] [address] | | | SERVICES, CORE | VILMA [...] Note | + + | Service Account, FatTail In Interface - 09/02/2017 4:25 PM PDT [...] Bedrest Initial surgical | | | contact: [facility] Vicente Butts, R4 Surgery [id number] Pursuant | | | to federal Medicare and Medicaid regulations I was present for the | | | entire procedure. Fidelina Shields MD Production Planner | | | Department of Surgery Office: [phone] Pager: [phone] This has | | | been electronically [...] [facility] | [address] | [place] [address] | | | SERVICES, CORE | PARK [...] | + + + + + | [facility] | [address] | [place] [address] | | | SERVICES, [facility] | [address] | | | + + + + + OPERATION RECORD (09/02/2017 6:51 AM PDT) + ---+ | Procedure Note | + ---+ | Fidelina Shields MD - 09/02/2017 6:51 AM PDT Date of Service: 09/01/2017 | | Attending Surgeon: Fidelina Shields MD Costumer Assistant(s): Haim Peralta MD. | | Ajay Butts [...] of the angiography.Ajay | | Truong Casarez, GHAZALA/MODLDD: 09/02/2017 06:17:53DT: 09/02/2017 | | 06:51:37Job #: [id number] to federal Medicare and Medicaid regulations I | | was present for the entire procedure.Fidelina Shields MDAssdioni ProfessorDepartment of | | SurgeryOffice: [phone]: [id number] has been electronically signed by Fidelina Whitman | | MD Cornelius, 09/02/2017 at 10:40 AM. | | | | | |Pursuant to federal Medicare and Medicaid regulations I was present for the entire procedur e. | | | | | | | |Fidelina Shields MD | |Production Planner | |Department of Surgery | |Office: [phone] | |Pager: [phone] | | | |This has been electronically [...] | + + + + + | [facility] | [address] | [place] [address] | | | SERVICES, CORE | VILMA [...] (L) | 41.0 - 53.0 % | [facility] | | | | | | LABORATORY [...] | + + + + + | [facility] | [address] | [place] [address] | | | SERVICES, CORE | PARK [...] + + + + | PRODUCT | [id number] | | [facility] | | | UNIT [...] + + + + | EXPIRATION | [id number] | | [facility] | | | DATE [...] + + + + | BLOOD | [id number] | | [facility] | | | PRODUCT [...] [facility] | [address] | [place] [address] | | | SERVICES, | [address] [...] | + + + + + | [facility] | [address] | [place] [address] | | | SERVICES, NATALEE | VILMA [...] | + + + + + | [facility] | [address] | [place] [address] | | | SERVICES, CORE | VILMA [...] | + + + + + | [facility] | [address] | [place] [address] | | | ELIN, NATALEE | VILMA [...] | | | | INFORMATION: | | [place] | | | | [employer] | [...] (http://www.cdc.gov/mmwr | | | | | | /preview/mmwrhtml/[email or web address] | | | | | | [email or web address].htm), [...] [facility] - | | | | by [employer], | | AIRPORT - | | | | | | [place] | | | | [address] | | | | | | Rogelio Pickard [facility] | | | | | | [phone] | | | | | | | | | | | | www.[employer], [employer] | | | | | | [...] + | [facility] - | [address] | [place] [address] | | | [place] | | | [...] | + + + + + | [facility] | [address] | [place] [address] | | | SERVICES, CORE | PARK [...] | + + + + + | [facility] | [address] | [place] [address] | | | SERVICES, CORE | VILMA [...] At | + + + | EXAM: HI CHEST 1 VIEW HISTORY: Hypoxemia COMPARISON: 09/01/17 | [facility] | | FINDINGS: The endotracheal tube, gastric [...] Interface - 09/02/2017 10:34 AM PDT EXAM: HI CHEST 1 | | VIEW HISTORY: HypoxemiaCOMPARISON: [...] | | + +---------+ + + | [facility] | | | | | [...] | + + + + + | [facility] | [address] | [place] [address] | | | SERVICES, CORE | PARK [...] (L) | 41.0 - 53.0 % | [facility] | | | | | | LABORATORY [...] | + + + + + | [facility] | [address] | [place] [address] | | | SERVICES, CORE | PARK [...] + + + + | PRODUCT | [id number] | | [facility] | | | UNIT [...] + + + + | EXPIRATION | [id number] | | [facility] | | | DATE [...] + + + + | BLOOD | [id number] | | [facility] | | | PRODUCT [...] | + + + + + | [facility] | [address] | [place] [address] | | | SERVICES, | [address] [...] | 122 (L) | >300 mmHg | [facility] | | | RATIO | | | [...] | + + + + + | [facility] | [address] | [place] [address] | | | SERVICES, CORE | PARK [...] [facility] | [address] | [place] [address] | | | NATALEE WORTHINGTON | VILMA [...] | + + + + + | [facility] | [address] | [place] [address] | | | SERVICES, NATALEE | VILMA [...] + + | Performing | Address | City/State/[facility] Cent[facility] | Phone Number | | Organization | | | | + + + + + | [facility] | [address] | [place] [address] | | | ELIN, NATALEE | PARK [...] | + + + + + | [facility] | [address] | [place] [address] | | | SERVICES, [facility] | [address] | | | + [...] | Previous result was 1.19 | | [facility], | | | | mmol/L on [...] Crediting patient. | LABORATORY | | | SERVICESNATALEE | + + + + + + + + | Performing | Address | City/State/Zipcode | Phone Number | | Organization | | | | + + + + + | [facility] | [address] | [place] [address] | | | NATAELE [place]TH[place] | [address] | | | [...] micropuncture access set was exchanged for a [employer] wire. Under | | | fluoroscopic guidance, a 5 Fr flush catheter was used to evaluate the | | | distal abdominal aorta and pelvic vasculature. A wire and catheter | | | were then used to select the left common and internal iliac arteries | | | from the right TECHNICAL SUPPORT MANAGER approach. DSA was performed from the [...] | iliac arteries from the right TECHNICAL SUPPORT MANAGER approach. DSA was performed from the [...] internal iliac arteries from the right TECHNICAL SUPPORT MANAGER approach. DSA was performed from the [...] [facility] | [address] | [place], [place] | | | [place], POINT OF CARE | [address] | [address] | | | TESTS | | | | + + + + + EXPLORATORY LAPAROTOMY (09/01/2017 12:31 PM PDT) + + + | Narrative | Performed At | + + + | Fidelina Shields MD 09/01/2017 12:42 PM BRIEF OPERATIVE NOTE: | | | Date: 09/01/2017 Author: Fidelina Shields MD | | | Attending Physician: Fidelina Shields MD Costumer Assistant(s): Haim Peralta | | | , Vicente Butts MD, [facility] MS3 Prior to the | | [...] case. | | | Fidelina Shields MD Production Planner Division of Trauma, | | | Critical Care and Acute Care Surgery Office: [phone] Pager: | | | [phone] | | + + + ABG-FULL ABL, [...] [facility] | [address] | [place], [place] | | | CH[place]ICK POINT OF CARE | [address] | [address] | | | TESTS | | | [...] + + + | exploratory laparotomy | [facility] | | | LABORATORY | | | NATALEE [address] | + + + + + + + + | Performing | Address | City/State/Zipcode | Phone Number | | Organization | | | | + + + + + | [facility] | [address] | [place] [address] | | | ELIN, NATALEE | VILMA [...] | IONIZED [place], | | mmol/L | [facility] | | | POC | [...] [facility] | [address] | [place], [place] | | | [facility]IA [facility]O [facility] | [address] | [address] | | | TESTS | | | [...] + + + + | PRODUCT | [id number] | | [facility] | | | UNIT [...] + + + + | EXPIRATION | [id number] | | [facility] | | | DATE [...] + + + + | BLOOD | [id number] | | [facility] | | | PRODUCT [...] [facility] | [address] | [place] [address] | | | SERVICES, | [address] [...] + + + + | PRODUCT | [id number] | | [facility] | | | UNIT [...] + + + + | EXPIRATION | [id number] | | [facility] | | | DATE [...] + + + + | BLOOD | [id number] | | [facility] | | | PRODUCT [...] [facility] | [address] | [place] [address] | | | SERVICES, | [address] [...] + + + + | PRODUCT | [id number] | | [facility] | | | UNIT [...] + + + + | EXPIRATION | [id number] | | [facility] | | | DATE [...] + + + + | BLOOD | [id number] | | [facility] | | | PRODUCT [...] | + + + + + | [facility] | [address] | [place] [address] | | | SERVICES, | [address] [...] + + + + | PRODUCT | [id number] | | [facility] | | | UNIT [...] + + + + | EXPIRATION | [id number] | | [facility] | | | DATE [...] + + + + | BLOOD | [id number] | | [facility] | | | PRODUCT [...] | + + + + + | [facility] | [address] | [place] [address] | | | SERVICES, | [address] [...] + + + + | PRODUCT | [id number] | | [facility] | | | UNIT [...] + + + + | EXPIRATION | [id number] | | [facility] | | | DATE [...] + + + + | BLOOD | [id number] | | [facility] | | | PRODUCT [...] | + + + + + | [facility] | [address] | [place] [address] | | | SERVICES, | [address] [...] + + + + | PRODUCT | [id number] | | [facility] | | | UNIT [...] + + + + | EXPIRATION | [id number] | | [facility] | | | DATE [...] + + + + | BLOOD | [id number] | | [facility] | | | PRODUCT [...] [facility] | [address] | [place] [address] | | | SERVICES, | [address] [...] + + + + | PRODUCT | [id number] | | [facility] | | | UNIT [...] + + + + | EXPIRATION | [id number] | | [facility] | | | DATE [...] + + + + | BLOOD | [id number] | | [facility] | | | PRODUCT [...] [facility] | [address] | [place] [address] | | | SERVICES, | [address] [...] + + + + | PRODUCT | [id number] | | [facility] | | | UNIT [...] + + + + | EXPIRATION | [id number] | | [facility] | | | DATE [...] + + + + | BLOOD | [id number] | | [facility] | | | PRODUCT [...] [facility] | [address] | [place] [address] | | | SERVICES, | [address] [...] + + + + | PRODUCT | [id number] | | [facility] | | | UNIT [...] + + + + | EXPIRATION | [id number] | | [facility] | | | DATE [...] + + + + | BLOOD | [id number] | | [facility] | | | PRODUCT [...] [facility] | [address] | [place] [address] | | | SERVICES, | [address] [...] + + + + | PRODUCT | [id number] | | [facility] | | | UNIT [...] + + + + | EXPIRATION | [id number] | | [facility] | | | DATE [...] + + + + | BLOOD | [id number] | | [facility] | | | PRODUCT [...] [facility] | [address] | [place] [address] | | | SERVICES, | [address] [...] + + + + | PRODUCT | [id number] | | [facility] | | | UNIT [...] + + + + | EXPIRATION | [id number] | | [facility] | | | DATE [...] + + + + | BLOOD | [id number] | | [facility] | | | PRODUCT [...] | + + + + + | [facility] | [address] | [place] [address] | | | SERVICES, | [address] [...] + + + + | PRODUCT | [id number] | | [facility] | | | UNIT [...] + + + + | EXPIRATION | [id number] | | [facility] | | | DATE [...] + + + + | BLOOD | [id number] | | [facility] | | | PRODUCT [...] | + + + + + | [facility] | [address] | [place] [address] | | | SERVICES, | [address] [...] + + + + | PRODUCT | [id number] | | [facility] | | | UNIT [...] + + + + | EXPIRATION | [id number] | | [facility] | | | DATE [...] + + + + | BLOOD | [id number] | | [facility] | | | PRODUCT [...] | + + + + + | [facility] | [address] | [place] [address] | | | SERVICES, | [address] [...] + + + + | PRODUCT | [id number] | | [facility] | | | UNIT [...] + + + + | EXPIRATION | [id number] | | [facility] | | | DATE [...] + + + + | BLOOD | [id number] | | [facility] | | | PRODUCT [...] [facility] | [address] | [place] [address] | | | SERVICES, | [address] [...] + + + + | PRODUCT | [id number] | | [facility] | | | UNIT [...] + + + + | EXPIRATION | [id number] | | [facility] | | | DATE [...] + + + + | BLOOD | [id number] | | [facility] | | | PRODUCT [...] [facility] | [address] | [place] [address] | | | SERVICES, | [address] [...] + + + + | PRODUCT | [id number] | | [facility] | | | UNIT [...] + + + + | EXPIRATION | [id number] | | [facility] | | | DATE [...] + + + + | BLOOD | [id number] | | [facility] | | | PRODUCT [...] [facility] | [address] | [place] [address] | | | SERVICES, | [address] [...] + + + + | PRODUCT | [id number] | | [facility] | | | UNIT [...] + + + + | EXPIRATION | [id number] | | [facility] | | | DATE [...] + + + + | BLOOD | [id number] | | [facility] | | | PRODUCT [...] [facility] | [address] | [place] [address] | | | SERVICES, | [address] [...] + + + + | PRODUCT | [id number] | | [facility] | | | UNIT [...] + + + + | EXPIRATION | [id number] | | [facility] | | | DATE [...] + + + + | BLOOD | [id number] | | [facility] | | | PRODUCT [...] + + | [facility] | [address] | [place] [address] | | | SERVICES, | [address] [...] + + + + | PRODUCT | [id number] | | [facility] | | | UNIT [...] + + + + | EXPIRATION | [id number] | | [facility] | | | DATE [...] + + + + | BLOOD | [id number] | | [facility] | | | PRODUCT [...] [facility] | [address] | [place] [address] | | | SERVICES, | [address] [...] + + + + | PRODUCT | [id number] | | [facility] | | | UNIT [...] + + + + | EXPIRATION | [id number] | | [facility] | | | DATE [...] + + + + | BLOOD | [id number] | | [facility] | | | PRODUCT [...] [facility] | [address] | [place] [address] | | | SERVICES, | [address] [...] + + + + | PRODUCT | [id number] | | [facility] | | | UNIT [...] + + + + | EXPIRATION | [id number] | | [facility] | | | DATE [...] + + + + | BLOOD | [id number] | | [facility] | | | PRODUCT [...] [facility] | [address] | [place] [address] | | | SERVICES, | [address] [...] + + + + | PRODUCT | [id number] | | [facility] | | | UNIT [...] + + + + | EXPIRATION | [id number] | | [facility] | | | DATE [...] + + + + | BLOOD | [id number] | | [facility] | | | PRODUCT [...] | + + + + + | [facility] | [address] | [place] [address] | | | SERVICES, | [address] [...] + + + + | PRODUCT | [id number] | | [facility] | | | UNIT [...] + + + + | EXPIRATION | [id number] | | [facility] | | | DATE [...] + + + + | BLOOD | [id number] | | [facility] | | | PRODUCT [...] | + + + + + | [facility] | [address] | [place] [address] | | | SERVICES, | [address] [...] + + + + | PRODUCT | [id number] | | [facility] | | | UNIT [...] + + + + | EXPIRATION | [id number] | | [facility] | | | DATE [...] + + + + | BLOOD | [id number] | | [facility] | | | PRODUCT [...] | + + + + + | [facility] | [address] | [place] [address] | | | SERVICES, | [address] [...] + + + + | PRODUCT | [id number] | | [facility] | | | UNIT [...] + + + + | EXPIRATION | [id number] | | [facility] | | | DATE [...] + + + + | BLOOD | [id number] | | [facility] | | | PRODUCT [...] | + + + + + | [facility] | [address] | [place] [address] | | | SERVICES, | [address] [...] + + + + | PRODUCT | [id number] | | [facility] | | | UNIT [...] + + + + | EXPIRATION | [id number] | | [facility] | | | DATE [...] + + + + | BLOOD | [id number] | | [facility] | | | PRODUCT [...] [facility] | [address] | [place] [address] | | | SERVICES, | [address] [...] | + + + + + | [facility] | [address] | [place] [address] | | | SERVICES, NATALEE | [address] [...] [facility] | [address] | [place] [address] | | | SERVICES, CORE | [address] [...] | + + + + + | [facility] | [address] | [place] [address] | | | SERVICES, CORE | [address] [...] 27.1 | 21 - 28 mmol/L | [facility] - | | | ARTERIAL, | | [...] [facility] | [address] | [place], [place] | | | [facility] | [address] | [id number] | | | TESTS | | | | + + + + + X-RAY PORTABLE CHEST 1 VIEW (09/01/2017 9:18 AM PDT) + + | Specimen | + + | | + + + + + | Narrative | Performed At | + + + | EXAM: [place] CHEST 1 VIEW HISTORY: Intubated COMPARISON: 08/31/17 [...] Account, Kostas Res In Interface - 09/02/2017 1:23 PM PDT EXAM: [place] CHEST 1 | | VIEW HISTORY: IntubatedCOMPARISON: [...] Note | + + | Service Account, FatTail In Interface - 09/01/2017 1:40 PM PDT [...] + + + + | PRODUCT | [id number] | | [facility] | | | UNIT [...] + + + + | EXPIRATION | [id number] | | [facility] | | | DATE [...] + + + + | BLOOD | [id number] | | [facility] | | | PRODUCT [...] | + + + + + | [facility] | [address] | [place] [address] | | | SERVICES, | [address] [...] + + + + | PRODUCT | [id number] | | [facility] | | | UNIT [...] + + + + | EXPIRATION | [id number] | | [facility] | | | DATE [...] + + + + | BLOOD | [id number] | | [facility] | | | PRODUCT [...] | + + + + + | [facility] | [address] | [place] [address] | | | SERVICES, | [address] [...] + + + + | PRODUCT | [id number] | | [facility] | | | UNIT [...] + + + + | EXPIRATION | [id number] | | [facility] | | | DATE [...] + + + + | BLOOD | [id number] | | [facility] | | | PRODUCT [...] [facility] | [address] | [place] [address] | | | SERVICES, | [address] [...] + + + + | PRODUCT | [id number] | | [facility] | | | UNIT [...] + + + + | EXPIRATION | [id number] | | [facility] | | | DATE [...] + + + + | BLOOD | [id number] | | [facility] | | | PRODUCT [...] [facility] | [address] | [place] [address] | | | SERVICES, | [address] [...] + + + + | PRODUCT | [id number] | | [facility] | | | UNIT [...] + + + + | EXPIRATION | [id number] | | [facility] | | | DATE [...] + + + + | BLOOD | [id number] | | [facility] | | | PRODUCT [...] [facility] | [address] | [place] [address] | | | SERVICES, | [address] [...] + + + + | PRODUCT | [id number] | | [facility] | | | UNIT [...] + + + + | EXPIRATION | [id number] | | [facility] | | | DATE [...] + + + + | BLOOD | [id number] | | [facility] | | | PRODUCT [...] [facility] | [address] | [place] [address] | | | SERVICES, | [address] [...] + + + + | PRODUCT | [id number] | | [facility] | | | UNIT [...] + + + + | EXPIRATION | [id number] | | [facility] | | | DATE [...] + + + + | BLOOD | [id number] | | [facility] | | | PRODUCT [...] [facility] | [address] | [place] [address] | | | SERVICES, | [address] [...] + + + + | PRODUCT | [id number] | | [facility] | | | UNIT [...] + + + + | EXPIRATION | [id number] | | [facility] | | | DATE [...] + + + + | BLOOD | [id number] | | [facility] | | | PRODUCT [...] | + + + + + | [facility] | [address] | [place] [address] | | | SERVICES, | [address] [...] + + + + | PRODUCT | [id number] | | [facility] | | | UNIT [...] + + + + | EXPIRATION | [id number] | | [facility] | | | DATE [...] + + + + | BLOOD | [id number] | | [facility] | | | PRODUCT [...] | + + + + + | [facility] | [address] | [place] [address] | | | SERVICES, | [address] [...] | + + + + + | [facility] | [address] | [place] [address] | | | SERVICES, CORE | P[address] [...] [facility] | [address] | [place] [address] | | | SERVICES, CORE | PARK [...] with | | | trauma ICU internet marketing executive by Dr. Yang at 4:38 AM. I have | | | personally reviewed the images and, if necessary, edited the report. | | | I agree with the report as now presented. | | + + + + + | Procedure Note | + + | Service Account, Radisimon Res In Interface - 09/01/2017 10:10 AM [...] ligament is injured.Discussed with trauma ICU internet marketing executive | | by Dr. Yang at 4:38 AM.I have personally reviewed the images and, if necessary, | | edited the report. I agree with the report as now presented. | |3. Extensive soft tissue edema extending into the cervical and upper thoracic interspinous space, suggestive of interspinous ligament is injured. | | | |Discussed with trauma ICU internet marketing executive by Dr. aYng at 4:38 AM. | | | | [...] [facility] | [address] | [place] [address] | | | SERVICES, CORE | PARK [...] | + + + + + | [facility] | [address] | [place] [address] | | | SERVICES, CORE | PARK [...] [facility] | [address] | [place] [address] | | | SERVICES, CORE | PARK [...] | + + + + + | [facility] | [address] | [place] [address] | | | [facility] | [address] | | | + + [...] pleural spaced was performed. A 32 size Macanese chest tube was | | | placed [...] ventricles. Discussed with the trauma ICU internet marketing executive at 12:12 AM by | | | [...] with | | the trauma ICU internet marketing executive at 12:[address] Yang.I have [...] | |Discussed with the trauma ICU internet marketing executive at 12:[address] Yang. | [...] [facility] | [address] | [place], [place] | | | GLORIA GENAO [employer] | [address] | [phone] | | | TESTS | | | [...] [facility] | [address] | [place] [address] | | | SERVICES, CORE | PARK [...] | + + + + + | [facility] | [address] | [place] [address] | | | NATALEE WORTHINGTON | [address] [...] | | + +---------+ + + | [facility] | | | | | VOICE RECOGNITION | | | | + +---------+ + + X-RAY HUMERUS 2 VIEWS LEFT (08/31/2017 8:56 PM PDT) + + | Specimen | + + | | + + + + + | Narrative | Performed At | + + + | EXAM: SHOULDER 2 VIEWS, ELBOW 2 VIEWS, HUMERUS 2 VIEWS LEFT 08/31/17 | [facility] | | HISTORY: Trauma, pain. COMPARISON: None. [...] | | + +---------+ + + | [facility] | | | | | [...] | + + + + + | [facility] | [address] | [place] [address] | | | SERVICES, CORE | [address] | | | + + + + + X-RAY PORTABLE CHEST 1 VIEW (08/31/2017 7:07 PM PDT) + + | Specimen | + + | | + + + + + | Narrative | Performed At | + + + | STUDY: HI CHEST 1 VIEW HISTORY: Trauma COMPARISON: CT [...] Interface - 09/01/2017 1:44 PM PDT STUDY: HI CHEST 1 | | VIEWHISTORY: TraumaCOMPARISON: CT [...] | | + +---------+ + + | [facility] | | | | | [...] | + + + + + | [facility] | [address] | [place] [address] | | | SERVICES, CORE | [address] [...] | | + +---------+ + + | [facility] | | | | | [...] rib, nondisplaced-Left | | 1st rib fracture, uakuxjbvwpmb-Fdc-twyghlphr left lateral 8th rib fracture-T12 fracture | [...] Note | + + | Service Account, Bannerman Res In Interface - 08/31/2017 8:10 PM [...] | + + + + + | [facility] | [address] | [place] [address] | | | ELIN, | [address] | | | | [...] [facility] | [address] | [place] [address] | | | SERVICES, | [address] [...] [facility] | [address] | [place] [address] | | | SERVICES, | [address] [...] [facility] | [address] | [place], [place] | | | GLORIA GENAO [employer] | [address] | [phone] | | | TESTS | | | [...] - | | | | | | RAPHAELAM | | | | | | [place], [...] + + + | [facility] | [address] | [place], [place] | | | [facility] | [address] | [address] | | | TESTS | | | [...] [facility] | [address] | [place], [place] | | | GLORIA GENAO [employer] | [facility] | [phone] | | | TESTS | | | [...] | | | BE | | | [facility] | | | | | | GLORIA GENAO | | | | | | OF CARE | | | | | | TESTS | | + + + + + + | ED BG POC | 78 (H) | 30 - 55 mmHg | [facility] - | | | PO2 | | | [facility] | | | [...] - [facility] | [address] | [place], [place] | | | [facility] | [facility] | [address] | | | TESTS | | | [...] + + + + | PRODUCT | [id number] | | [facility] | | | UNIT [...] + + + + | EXPIRATION | [id number] | | [facility] | | | DATE [...] + + + + | BLOOD | [id number] | | [facility] | | | PRODUCT [...] [facility] | [address] | [place] [address] | | | SERVICES, | [address] [...] + + + + | PRODUCT | [id number] | | [facility] | | | UNIT [...] + + + + | EXPIRATION | [id number] | | [facility] | | | DATE [...] + + + + | BLOOD | [id number] | | [facility] | | | PRODUCT [...] [facility] | [address] | [place] [address] | | | SERVICES, | [address] [...] + + + + | PRODUCT | [id number] | | [facility] | | | UNIT [...] + + + + | EXPIRATION | [id number] | | [facility] | | | DATE [...] + + + + | BLOOD | [id number] | | [facility] | | | PRODUCT [...] | + + + + + | [facility] | [address] | [place] [address] | | | SERVICES, | [address] [...] + + + + | PRODUCT | [id number] | | [facility] | | | UNIT [...] + + + + | EXPIRATION | [id number] | | [facility] | | | DATE [...] + + + + | BLOOD | [id number] | | [facility] | | | PRODUCT [...] | + + + + + | [facility] | [address] | [place] [address] | | | SERVICES, | [address] [...] + + + + | PRODUCT | [id number] | | [facility] | | | UNIT [...] + + + + | EXPIRATION | [id number] | | [facility] | | | DATE [...] + + + + | BLOOD | [id number] | | [facility] | | | PRODUCT [...] | + + + + + | [facility] [facility] | [address] | [place] [address] | | | SERVICES, | [address] [...] + + + + | PRODUCT | [id number] | | [facility] | | | UNIT [...] + + + + | EXPIRATION | [id number] | | [facility] | | | DATE [...] + + + + | BLOOD | [id number] | | [facility] | | | PRODUCT [...] | + + + + + | [facility] | [address] | [place] [address] | | | SERVICES, | [address] [...] + + + + | PRODUCT | [id number] | | [facility] | | | UNIT [...] + + + + | EXPIRATION | [id number] | | [facility] | | | DATE [...] + + + + | BLOOD | [id number] | | [facility] | | | PRODUCT [...] | + + + + + | [facility] | [address] | [place] [address] | | | SERVICES, | [address] [...] + + + + | PRODUCT | [id number] | | [facility] | | | UNIT [...] + + + + | EXPIRATION | [id number] | | [facility] | | | DATE [...] + + + + | BLOOD | [id number] | | [facility] | | | PRODUCT [...] [facility] | [address] | [place] [address] | | | SERVICES, | [address] [...] | + + + + + | [facility] | [address] | [place] [address] | | | SERVICES, CORE | [address] [...] [facility] | [address] | [place] [address] | | | SERVICES, CORE | [address] [...] valves (2.5 - 3.5) INR APTT | [facility], CORE | | Therapeutic Range: (75 - 120) sec | | | Heparin levels of 0.35 - 0.7 U/mL | | + + + + + + + + | Performing | Address | City/State/Zipcode | Phone Number | | Organization | | | | + + + + + | [facility] | [address] | [place] [address] | | | [facility] | [address] | | | + [...] [facility] | [address] | [place] [address] | | | SERVICES, CORE | [address] [...] | + + + + + | [facility] | [address] | [place] [address] | | | SERVICES, CORE | [address] [...] [facility] | [address] | [place] [address] | | | SERVICES, CORE | [address] [...] | Fracture of cervical spinous process (HCC) Closed fracture of cervical vertebra, | | unspecified level without mention of spinal cord injury | + + documented in this encounter Administered Medications + +--------+ + +------+------+ | Medication Order | MAR | Action | Dose | Rate | Site | | | Action | Date | | | | + +--------+ + +------+------+ | acetaminophen (TYLENOL) oral | Given | 09/24/19 | 1,000 mg | | | | suspension 1,000 mg 1,000 mg, | | 18 9:43 | | | | | oral, THREE TIMES DAILY, First | | PM PDT | | | | | dose on Sat09/20/17 at 1645, | | | | | | | Until Discontinued | | | | | | + +--------+ + +------+------+ +-------+ + +---+---+ | Given | 09/24/19 | 1,000 mg | | | | | 18 3:49 | | | | | | PM PDT | | | | +-------+ + +---+---+ | Given | 09/24/19 | 500 mg | | | | | 18 4:07 | | | | | | AM PDT | | | | +-------+ + +---+---+ +---+---+ | | | +---+---+ + +-------+ + +---+---+ | acetaminophen (TYLENOL) oral | Given | 10/03/19 | 1,000 mg | | | | suspension 1,000 mg 1,000 mg, | | 18 4:14 | | | | | oral, THREE TIMES DAILY, First | | PM PDT | | | | | dose on Sat10/02/17 at 1600, Until | | | | | | | Discontinued | | | | | | + +-------+ + +---+---+ +---+---+ | | | +---+---+ + +-------+ + +---+---+ | acetaminophen (TYLENOL) oral | Given | 10/22/19 | 1,000 mg | | | | suspension 1,000 mg 1,000 mg, | | 18 9:31 | | | | | feeding tube, THREE TIMES DAILY, | | PM PDT | | | | | First dose (after last | | | | | | | modification) on Sat10/02/17 at | | | | | | | 2200, Until Discontinued | | | | | | + +-------+ + +---+---+ +-------+ + +---+---+ | Given | 10/22/19 | 1,000 mg | | | | | 18 8:40 | | | | | | AM PDT | | | | +-------+ + +---+---+ | Given | 10/21/19 | 1,000 mg | | | | | 18 9:26 | | | | | | PM [...] +---+---+ +-------+ + +---+---+ | Given | 12/06/19 [...] +--------+---+---+ | acetaminophen (TYLENOL) | Given | 10/02/19 | 650 mg | | | | suppository 650 mg 650 mg, | | 18 8:00 | | | | | rectal, EVERY 6 HOURS NEEDED, | | AM PDT | | | | | Starting Sat09/27/17 at 0914, | | | | | | | Until Sat10/11/17 at 1334, | | | | | | | multimodal pain control | | | | | | + +-------+ +--------+---+---+ +-------+ +--------+---+---+ | Given | 06/01/20 | 650 mg | | | | | 18 10:39 | | | | | | AM PDT | | | | +-------+ +--------+---+---+ +---+---+ | | | +---+---+ + +-------+ +--------+---+---+ | acetaminophen (TYLENOL) | Given | 10/29/19 | 975 mg | | | | suppository 975 mg 975 mg | | 18 1:35 | | | | | (rounded from 1,000 mg), rectal, | | AM PDT | | | | | THREE TIMES DAILY, First dose on | | | | | | | 10/22/17 at 2200, Until | | | | | | | Discontinued | | | | | | + +-------+ +--------+---+---+ +-------+ +--------+---+---+ | Given | 10/27/19 | 975 mg | | | | | 18 9:52 | | | | | | PM PDT | | | | +-------+ +--------+---+---+ | Given | 10/27/19 | 975 mg | | | | | 18 7:46 | | | | | | AM PDT | | | | +-------+ +--------+---+---+ +---+---+ | | | +---+---+ + +-------+ + +---+---+ | acetaminophen (TYLENOL) tablet | Given | 09/05/19 | 1,000 mg | | | | 1,000 mg 1,000 mg, oral, EVERY 8 | | 18 5:13 | | | | | HOURS, First dose on 08/31/17 | | AM PDT | | | | | at 2200, Until Discontinued | | | | | | + +-------+ + +---+---+ +-------+ + +---+---+ | Given | 09/04/19 | 1,000 mg | | | | | 18 9:04 | | | | | | PM PDT | | | | +-------+ + +---+---+ | Given | 09/04/19 | 1,000 mg | | | | | 18 11:31 | | | | | | AM PDT | | | | +-------+ + +---+---+ +---+---+ | | | +---+---+ + +-------+ + +---+---+ | acetaminophen (TYLENOL) tablet | Given | 09/14/19 | 1,000 mg | | | | 1,000 mg 1,000 mg, oral, EVERY 6 | | 18 8:20 | | | | | HOURS, First dose (after last | | PM PDT | | | | | modification) on Sat09/04/17 at | | | | | | | 1200, Until Discontinued | | | | | | + +-------+ + +---+---+ +-------+ + +---+---+ | Given | 09/14/19 | 1,000 mg | | | | | 18 11:30 | | | | | | AM PDT | | | | +-------+ + +---+---+ | Given | 09/10/19 | 1,000 mg | | | | | 18 4:22 | | | | | | PM PDT | | | | +-------+ + +---+---+ +---+---+ | | | +---+---+ + +-------+ + +---+---+ | acetaminophen (TYLENOL) tablet | Given | 09/20/19 | 1,000 mg | | | | 1,000 mg 1,000 mg, feeding tube, | | 18 4:36 | | | | | EVERY 6 HOURS, First dose (after | | AM PDT | | | | | last modification) on Sat | | | | | | | 09/14/17 at 1000, Until | | | | | | | Discontinued | | | | | | + +-------+ + +---+---+ +-------+ + +---+---+ | Given | 09/19/19 | 1,000 mg | | | | | 18 3:06 | | | | | | PM PDT | | | | +-------+ + +---+---+ | Given | 09/19/19 | 1,000 mg | | | | | 18 5:18 | | | | | | AM PDT | | | | +-------+ + +---+---+ +---+---+ | | | +---+---+ + +-------+ + +---+---+ | acetaminophen (TYLENOL) tablet | Given | 09/20/19 | 1,000 mg | | | | 1,000 mg 1,000 mg, oral, EVERY 6 | | 18 8:44 | | | | | HOURS, First dose (after last | | AM PDT | | | | | modification) on [facility] 09/19/17 at | | | | | | | 1000, Until Discontinued | | | | | | + +-------+ + +---+---+ +---+---+ | | | +---+---+ + + + +------+---+------+ | alteplase (CATHFLO ACTIVASE) | Line | 11/04/19 | 2 mg | | PICC | | injection 2 mg 2 mg, | Lock | 18 2:01 | | | | | Intracatheter, ONCE, 1 dose, Sun | Facundo | PM PDT | | | | | 11/03/17 [...] Until Fri | | | 12/06/17 at 2, Nurse Initiated | | | Order - affected skin areas with | | | superficial lacerations/abrasions | | + +---+ | | | + +---+ + +-------+ +-------+---+---+ | bisacodyl (DULCOLAX) | Given | 10/07/19 | 10 mg | | | | suppository 10 mg 10 mg, rectal, | | 18 10:16 | | | | | DAILY NEEDED, Starting Wed | | AM PDT | | | | | 09/04/17 [...] +-------+ +-------+---+---+ +-------+ +-------+---+---+ | Given | 09/15/19 | 10 mg | | | | | 18 9:42 | | | | | | AM PDT | | | | +-------+ +-------+---+---+ | Given | 09/08/19 | 10 mg | | | | | 18 12:16 | | | | | | PM [...] 2 g in | New Bag | 09/02/19 | 2 g | | | | dextrose 5 % IV 2 g, | | 18 10:05 | | | | | intravenous, ONCE, 1 dose, Sun | | AM PDT | | | | | 09/01/17 at 1015 | | | | | | + +---------+ +-----+---+---+ +---+---+ | | | +---+---+ + +---------+ +-----+---+---+ | ceFAZolin (ANCEF) 2 g in NaCl | New Bag | 11/09/19 | 2 g | | | | 0.9 % (NS) IV 2 g, intravenous, | | 18 7:59 | | | | | EVERY 8 HOURS, First dose on Sat | | AM PDT | | | | | 11/06/17 at 0000, Until | | | | | | | Discontinued | | | | | | + +---------+ +-----+---+---+ +---------+ +-----+---+---+ | New Bag | 11/08/19 | 2 g | | | | | 18 11:51 | | | | | | PM PDT | | | | +---------+ +-----+---+---+ | New Bag | 11/08/19 | 2 g | | | | | 18 4:25 | | | | | | PM PDT | | | | +---------+ +-----+---+---+ +---+---+ | | | +---+---+ + +-------+ +-----+---+---+ | ceFAZolin (ANCEF) injection 1 g | Given | 10/01/19 | 1 g | | | | 1 g, intravenous, EVERY 8 | | 18 7:57 | | | | | HOURS, 18 doses, First dose on | | AM PDT | | | | | 09/24/17 at 1600, Last dose on | | | | | | | 09/30/17 at 0800 | | | | | | + +-------+ +-----+---+---+ +-------+ +-----+---+---+ | Given | 10/01/19 | 1 g | | | | | 18 12:21 | | | | | | AM PDT | | | | +-------+ +-----+---+---+ | Given | 09/30/19 | 1 g | | | | | 18 2:52 | | | | | | PM PDT | | | | +-------+ +-----+---+---+ +---+---+ | | | +---+---+ + +-------+ +-----+---+---+ | ceFAZolin (ANCEF) injection 1 g | Given | 10/23/19 | 1 g | | | | 1 g, intravenous, | | 18 2:32 | | | | | INTRAPROCEDURE ONCE, 1 dose, | | PM PDT | | | | | Starting 10/22/17 at 1445, | | | | | | | Until 10/22/17 at 1432 | | | | | | + +-------+ +-----+---+---+ +---+---+ | | | +---+---+ + +-------+ +-----+---+---+ | ceFEPIme (MAXIPIME) injection 2 | Given | 11/02/19 | 2 g | | | | g 2 g, intravenous, EVERY 8 | | 18 12:29 | | | | | HOURS, 65 doses, First dose on | | AM PDT | | | | | Sho 10/10/17 at 1300, Last dose on | | | | | | | 11/01/17 at 0000 | | | | | | + +-------+ +-----+---+---+ +-------+ +-----+---+---+ | Given | 11/01/19 | 2 g | | | | | 18 4:57 | | | | | | PM PDT | | | | +-------+ +-----+---+---+ | Given | 11/01/19 | 2 g | | | | | 18 8:45 | | | | | | AM PDT | | | | +-------+ +-----+---+---+ +---+---+ | | | +---+---+ + +-------+ +--------+---+---+ | cephALEXin (KEFLEX) capsule 500 | Given | 09/25/19 | 500 mg | | | | mg 500 mg, oral, EVERY 6 HOURS, | | 18 10:54 | | | | | 28 doses, First dose on Mon | | AM PDT | | | | | 09/23/17 at 1300, Last dose on Mon | | | | | | | 09/30/17 at 0600 | | | | | | + +-------+ +--------+---+---+ +-------+ +--------+---+---+ | Given | 09/24/19 | 500 mg | | | | | 18 9:43 | | | | | | PM PDT | | | | +-------+ +--------+---+---+ | Given | 09/24/19 | 500 mg | | | | | 18 3:49 | | | | | | PM PDT | | | | +-------+ +--------+---+---+ +---+---+ | | | +---+---+ + +-------+ +-------+---+---+ | chlorhexidine (PERIDEX) | Given | 09/07/19 | 15 mL | | | | mouthwash 15 mL 15 mL, oral, | | 18 3:49 | | | | | EVERY 6 HOURS, First dose on Sat | | AM PDT | | | | | 08/31/17 at 2200, Until | | | | | | | Discontinued | | | | | | + +-------+ +-------+---+---+ +-------+ +-------+---+---+ | Given | 09/06/19 | 15 mL | | | | | 18 9:16 | | | | | | PM PDT | | | | +-------+ +-------+---+---+ | Given | 09/06/19 | 15 mL | | | | | 18 3:27 | | | | | | PM PDT | | | | +-------+ +-------+---+---+ +---+---+ | | | +---+---+ + +-------+ +-------+---+---+ | chlorhexidine (PERIDEX) | Given | 10/15/19 | 15 mL | | | | mouthwash 15 mL 15 mL, oral, | | 18 4:53 | | | | | EVERY 6 HOURS, First dose on Sat | | AM PDT | | | | | 10/12/17 at 2200, Until | | | | | | | Discontinued | | | | | | + +-------+ +-------+---+---+ +-------+ +-------+---+---+ | Given | 10/14/19 | 15 mL | | | | | 18 9:17 | | | | | | PM PDT | | | | +-------+ +-------+---+---+ | Given | 10/14/19 | 15 mL | | | | | 18 11:08 | | | | | | AM PDT | | | | +-------+ +-------+---+---+ +---+---+ | | | +---+---+ + + + + +-------+---+ | dexmedetomidine (PRECEDEX) 400 | Rate/Dos | 09/05/19 | 0.4 | 7.65 | | | mcg in NaCl 0.9 % 100 mL (4 | e Verify | 18 10:00 | mcg/kg/h | mL/hr | | | mcg/mL) IV infusion 0.2-0.7 | | PM PDT | r | | | | [...] + + +-------+---+ | Rate/Dose Change | 09/05/19 | 0.4 | 7.65 | | | | 18 9:54 | mcg/kg/h | mL/hr | | | | PM PDT | r | | | + + + +-------+---+ | Restarted | 09/05/19 | 0.3 | 5.74 | | | | 18 9:44 | mcg/kg/h | mL/hr | | | | PM PDT | r | | | + + + +-------+---+ +---+---+ | | | +---+---+ + + + +-------+-------+---+ | dextrose 5 %-lactated ringers | Rate/Dos | 10/27/19 | 100 | 100 | | | IV infusion 100 mL/hr, | e Verify | 18 5:21 | mL/hr | mL/hr | | | intravenous, CONTINUOUS, Starting | | AM PDT | | | | | 10/23/17 at 2215, Until Sat | | | | | | | 10/26/17 at 0902 | | | | | | + + + +-------+-------+---+ + + +-------+-------+---+ | Rate/Dose Verify | 10/27/19 | 100 | 100 | | | | 18 12:10 | mL/hr | mL/hr | | | | AM PDT | | | | + + +-------+-------+---+ | Rate/Dose Verify | 10/26/19 | 100 | 100 | | | | 18 5:35 | mL/hr | mL/hr | | | | PM PDT | | | | + + +-------+-------+---+ +---+---+ | | | +---+---+ + + + + + +---+ | dextrose 5%-NaCl 0.45% IV | Rate/Dos | 09/05/19 | 75 mL/hr | 75 mL/hr | | | infusion 75 mL/hr, intravenous, | e Verify | 18 7:00 | | | | | CONTINUOUS, Starting 09/03/17 | | AM PDT | | | | | at 1200, Until 09/04/17 at 0658 | | | | | | + + + + + +---+ + + + + +---+ | Rate/Dose Verify | 09/05/19 | 75 mL/hr | 75 mL/hr | | | | 18 6:00 | | | | | | AM PDT | | | | + + + + +---+ | Rate/Dose Verify | 09/05/19 | 75 mL/hr | 75 mL/hr | | | | 18 5:00 | | | | | | AM [...] +-------+---+---+ | diatrizoate meglumine-sodium | Given | 12/04/19 | 50 mL | | | | (MOIRA LATIFGASTROSHELLY) | | 18 12:59 | | | | | 66-10 % oral solution 50 mL 50 | | AM PDT | | | | | mL, feeding tube, ONCE, 1 dose, | | | | | | | 12/03/17 at 0045 | | | | | | + +-------+ +-------+---+---+ +---+---+ | | | +---+---+ + +---------+ +---------+---+---+ | diphenhydrAMINE (BENADRYL) IV | New Bag | 10/28/19 | 12.5 mg | | | | bag 12.5 mg 12.5 mg, | | 18 12:40 | | | | | intravenous, ONCE, 1 dose, Sun | | AM PDT | | | | | 10/27/17 at 0000 | | | | | | + +---------+ +---------+---+---+ +---+---+ | | | +---+---+ + +-------+ +--------+---+---+ | docusate sodium liquid 100 mg | Given | 09/16/19 | 100 mg | | | | 100 mg, feeding tube, TWICE | | 18 9:35 | | | | | DAILY, First dose on Sat09/04/17 | | AM PDT | | | | | at 0900, Until Discontinued | | | | | | + +-------+ +--------+---+---+ +-------+ +--------+---+---+ | Given | 09/15/19 | 100 mg | | | | | 18 9:02 | | | | | | PM PDT | | | | +-------+ +--------+---+---+ | Given | 09/15/19 | 100 mg | | | | | 18 [...] | enoxaparin (LOVENOX) injection | Given | 09/21/19 | 40 mg | | Abdomen | | 40 mg 40 mg, subcutaneous, EVERY | | 18 10:03 | | | | | EVENING, First dose on Sat | | PM PDT | | | | | 09/04/17 at 2100, Until | | | | | | | Discontinued | | | | | | + +-------+ +-------+---+---------+ +-------+ +-------+---+---------+ | Given | 09/20/19 | 40 mg | | Abdomen | | | 18 8:45 | | | | | | PM PDT | | | | +-------+ +-------+---+---------+ | Given | 09/19/19 | 40 mg | | Abdomen | | | 18 9:07 | | | | | | PM PDT | | | | +-------+ +-------+---+---------+ +---+---+ | | | +---+---+ + +-------+ +-------+---+---------+ | enoxaparin (LOVENOX) injection | Given | 10/09/19 | 40 mg | | Abdomen | | 40 mg 40 mg, subcutaneous, EVERY | | 18 8:53 | | | | | EVENING, First dose on Sat | | PM PDT | | | | | 09/25/17 at 2100, Until | | | | | | | Discontinued | | | | | | + +-------+ +-------+---+---------+ +-------+ +-------+---+---------+ | Given | 10/08/19 | 40 mg | | Abdomen | | | 18 9:18 | | | | | | PM PDT | | | | +-------+ +-------+---+---------+ | Given | 10/07/19 | 40 mg | | Abdomen | | | 18 9:33 | | | | | | PM PDT | | | | +-------+ +-------+---+---------+ +---+---+ | | | +---+---+ + +-------+ +-------+---+---------+ | enoxaparin (LOVENOX) injection | Given | 11/04/19 | 40 mg | | Abdomen | | 40 mg 40 mg, subcutaneous, EVERY | | 18 9:29 | | | | | EVENING, First dose on Wed | | PM PDT | | | | | 18 at 2100, Until | | | | | | | Discontinued | | | | | | + +-------+ +-------+---+---------+ +-------+ +-------+---+---------+ | Given | 11/03/19 | 40 mg | | Abdomen | | | 18 9:20 | | | | | | PM PDT | | | | +-------+ +-------+---+---------+ | Given | 11/02/19 | 40 mg | | Abdomen | | | 18 10:18 | | | | | | PM [...] | famotidine (PEPCID) injection | Given | 09/19/19 | 20 mg | | | | 20 mg 20 mg, intravenous, TWICE | | 18 8:00 | | | | | DAILY, First dose on Sat09/09/17 | | AM PDT | | | | | at 1730, Until Discontinued | | | | | | + +-------+ +-------+---+---+ +-------+ +-------+---+---+ | Given | 09/18/19 | 20 mg | | | | | 18 9:38 | | | | | | PM PDT | | | | +-------+ +-------+---+---+ | Given | 09/18/19 | 20 mg | | | | | 18 10:17 | | | | | | AM PDT | | | | +-------+ +-------+---+---+ +---+---+ | | | +---+---+ + +-------+ +-------+---+---+ | famotidine (PEPCID) injection | Given | 09/21/19 | 20 mg | | | | 20 mg 20 mg, intravenous, TWICE | | 18 8:14 | | | | | DAILY, First dose on Sat09/19/17 | | AM PDT | | | | | at 2200, Until Discontinued | | | | | | + +-------+ +-------+---+---+ +-------+ +-------+---+---+ | Given | 09/20/19 | 20 mg | | | | | 18 10:56 | | | | | | PM PDT | | | | +-------+ +-------+---+---+ +---+---+ | | | +---+---+ + +-------+ +-------+---+---+ | famotidine (PEPCID) injection | Given | 10/05/19 | 20 mg | | | | 20 mg 20 mg, intravenous, TWICE | | 18 8:07 | | | | | DAILY, First dose on Sat09/20/17 | | AM PDT | | | | | at 2100, Until Discontinued | | | | | | + +-------+ +-------+---+---+ +-------+ +-------+---+---+ | Given | 10/04/19 | 20 mg | | | | | 18 9:20 | | | | | | PM PDT | | | | +-------+ +-------+---+---+ | Given | 10/04/19 | 20 mg | | | | | 18 9:17 | | | | | | AM PDT | | | | +-------+ +-------+---+---+ +---+---+ | | | +---+---+ + +-------+ +-------+---+---+ | famotidine (PEPCID) injection | Given | 10/14/19 | 20 mg | | | | 20 mg 20 mg, intravenous, TWICE | | 18 8:29 | | | | | DAILY, First dose on 10/12/17 | | AM PDT | | | | | at 2330, Until Discontinued | | | | | | + +-------+ +-------+---+---+ +-------+ +-------+---+---+ | Given | 10/13/19 | 20 mg | | | | | 18 11:19 | | | | | | PM PDT | | | | +-------+ +-------+---+---+ +---+---+ | | | +---+---+ + +-------+ +-------+---+---+ | famotidine (PEPCID) tablet 20 | Given | 09/06/19 | 20 mg | | | | mg 20 mg, oral, TWICE DAILY, | | 18 9:16 | | | | | First dose on Sat09/04/17 at 2100, | | PM PDT | | | | | Until Discontinued | | | | | | + +-------+ +-------+---+---+ +-------+ +-------+---+---+ | Given | 09/06/19 | 20 mg | | | | | 18 8:18 | | | | | | AM PDT | | | | +-------+ +-------+---+---+ | Given | 09/05/19 | 20 mg | | | | | 18 9:34 | | | | | | PM PDT | | | | +-------+ +-------+---+---+ +---+---+ | | | +---+---+ + +-------+ +-------+---+---+ | famotidine (PEPCID) tablet 20 | Given | 09/07/19 | 20 mg | | | | mg 20 mg, feeding tube, TWICE | | 18 7:52 | | | | | DAILY, First dose (after last | | AM PDT | | | | | modification) on Sat09/06/17 at | | | | | | | 0900, Until Discontinued | | | | | | + +-------+ +-------+---+---+ +---+---+ | | | +---+---+ + +-------+ +-------+---+---+ | famotidine (PEPCID) tablet 20 | Given | 09/19/19 | 20 mg | | | | mg 20 mg, feeding tube, TWICE | | 18 9:08 | | | | | DAILY, First dose on Sat09/18/17 | | PM PDT | | | | | at 2100, Until Discontinued | | | | | | + +-------+ +-------+---+---+ +---+---+ | | | +---+---+ + +-------+ +-------+---+---+ | famotidine (PEPCID) tablet 20 | Given | 09/20/19 | 20 mg | | | | mg 20 mg, oral, TWICE DAILY, | | 18 8:44 | | | | | First dose (after last | | AM PDT | | | | | modification) on Sat09/19/17 at | | | | | | | 0900, Until Discontinued | | | | | | + +-------+ +-------+---+---+ +---+---+ | | | +---+---+ + +-------+ +-------+---+---+ | famotidine (PEPCID) tablet 20 | Given | 10/12/19 | 20 mg | | | | mg 20 mg, feeding tube, TWICE | | 18 9:37 | | | | | DAILY, First dose on Sat10/04/17 | | PM PDT | | | | | at 2100, Until Discontinued | | | | | | + +-------+ +-------+---+---+ +-------+ +-------+---+---+ | Given | 10/12/19 | 20 mg | | | | | 18 8:55 | | | | | | AM PDT | | | | +-------+ +-------+---+---+ | Given | 10/11/19 | 20 mg | | | | | 18 8:36 | | | | | | PM PDT | | | | +-------+ +-------+---+---+ +---+---+ | | | +---+---+ + +-------+ +-------+---+---+ | famotidine (PEPCID) tablet 20 | Given | 10/15/19 | 20 mg | | | | mg 20 mg, feeding tube, TWICE | | 18 7:48 | | | | | DAILY, First dose on 10/13/17 | | AM PDT | | | | | at 2100, Until Discontinued | | | | | | + +-------+ +-------+---+---+ +-------+ +-------+---+---+ | Given | 10/14/19 | 20 mg | | | | | 18 9:18 | | | | | | PM PDT | | | | +-------+ +-------+---+---+ +---+---+ | | | +---+---+ + + + +------+-------+---+ | fat emulsion (SMOFLIPID) 20 % | Rate/Dos | 09/17/19 | 25 g | 5.2 | | | IV infusion 25 g 25 g, | e Verify | 18 8:36 | | mL/hr | | | intravenous, TPN 2100, Starting | | PM PDT | | | | | 09/15/17 at 2099, Until Mon | | | | | | | 09/16/17 at 2058 | | | | | | + + + +------+-------+---+ + + +------+-------+---+ | Restarted | 09/17/19 | 25 g | 5.2 | | | | 18 2:57 | | mL/hr | | | | PM PDT | | | | + + +------+-------+---+ | Rate/Dose Verify | 09/17/19 | 25 g | 5.2 | | | | 18 7:43 | | mL/hr | | | | AM PDT | | | | + + +------+-------+---+ +---+---+ | | | +---+---+ + + + +------+-------+---+ | fat emulsion (SMOFLIPID) 20 % | Rate/Dos | 10/27/19 | 26 g | 5.4 | | | IV infusion 26 g 26 g, | e Verify | 18 8:01 | | mL/hr | | | intravenous, TPN 2100, Starting | | AM PDT | | | | | 10/25/17 at 2099, Until Sat | | | | | | | 10/26/17 at 2058 | | | | | | + + + +------+-------+---+ +---------+ +------+-------+---+ | New Bag | 10/26/19 | 26 g | 5.4 | | | | 18 9:13 | | mL/hr | | | | PM PDT | | | | +---------+ +------+-------+---+ +---+---+ | | | +---+---+ + + + +------+-------+---+ | fat emulsion (SMOFLIPID) 20 % | Restarte | 09/18/19 | 35 g | 7.3 | | | IV infusion 35 g 35 g, | d | 18 6:31 | | mL/hr | | | intravenous, TPN 2100, Starting | | AM PDT | | | | | 09/16/17 at 2100, Until Tue | | | | | | | 09/17/17 at 2058 | | | | | | + + + +------+-------+---+ + + +------+-------+---+ | Rate/Dose Verify | 09/18/19 | 35 g | 7.3 | | | | 18 1:38 | | mL/hr | | | | AM PDT | | | | + + +------+-------+---+ | New Bag | 09/17/19 | 35 g | 7.3 | | | | 18 9:06 | | mL/hr | | | | PM PDT | | | | + + +------+-------+---+ +---+---+ | | | +---+---+ + + + +------+-------+---+ | fat emulsion (SMOFLIPID) 20 % | Rate/Dos | 09/19/19 | 35 g | 7.3 | | | IV infusion 35 g 35 g, | e Verify | 18 6:04 | | mL/hr | | | intravenous, TPN 2100, Starting | | PM PDT | | | | | 09/17/17 at 2099, Until Wed | | | | | | | 09/18/17 at 2058 | | | | | | + + + +------+-------+---+ + + +------+-------+---+ | Rate/Dose Verify | 09/19/19 | 35 g | 7.3 | | | | 18 6:59 | | mL/hr | | | | AM PDT | | | | + + +------+-------+---+ | Rate/Dose Verify | 09/19/19 | 35 g | 7.3 | | | | 18 2:23 | | mL/hr | | | | AM PDT | | | | + + +------+-------+---+ +---+---+ | | | +---+---+ + +---------+ +------+-------+---+ | fat emulsion (SMOFLIPID) 20 % | New Bag | 09/27/19 | 52 g | 18.6 | | | IV infusion 52 g 52 g, | | 18 9:31 | | mL/hr | | | intravenous, TPN 2099, Starting | | PM PDT | | | | | Sho 09/26/17 at 2099, Until Fri | | | | | | | 09/27/17 at 2058 | | | | | | + +---------+ +------+-------+---+ +---+---+ | | | +---+---+ + + + +------+-------+---+ | fat emulsion (SMOFLIPID) 20 % | Rate/Dos | 09/29/19 | 52 g | 18.6 | | | IV infusion 52 g 52 g, | e Verify | 18 10:51 | | mL/hr | | | intravenous, TPN 2099, Starting | | AM PDT | | | | | 09/27/17 at 2099, Until Sat | | | | | | | 09/28/17 at 2058 | | | | | | + + + +------+-------+---+ + + +------+-------+---+ | Rate/Dose Verify | 09/29/19 | 52 g | 18.6 | | | | 18 2:31 | | mL/hr | | | | AM PDT | | | | + + +------+-------+---+ | New Bag | 09/28/19 | 52 g | 18.6 | | | | 18 10:21 | | mL/hr | | | | PM PDT | | | | + + +------+-------+---+ +---+---+ | | | +---+---+ + + + +------+-------+---+ | fat emulsion (SMOFLIPID) 20 % | Rate/Dos | 09/30/19 | 52 g | 18.6 | | | IV infusion 52 g 52 g, | e Verify | 18 10:07 | | mL/hr | | | intravenous, TPN 2100, Starting | | AM PDT | | | | | 09/28/17 at 2100, Until Sun | | | | | | | 09/29/17 at 2058 | | | | | | + + + +------+-------+---+ + + +------+-------+---+ | Rate/Dose Verify | 09/30/19 | 52 g | 18.6 | | | | 18 3:30 | | mL/hr | | | | AM PDT | | | | + + +------+-------+---+ | New Bag | 09/29/19 | 52 g | 18.6 | | | | 18 9:42 | | mL/hr | | | | PM PDT | | | | + + +------+-------+---+ +---+---+ | | | +---+---+ + + + +------+-------+---+ | fat emulsion (SMOFLIPID) 20 % | Rate/Dos | 10/01/19 | 52 g | 18.6 | | | IV infusion 52 g 52 g, | e Verify | 18 7:56 | | mL/hr | | | intravenous, TPN 2100, Starting | | AM PDT | | | | | 09/29/17 at 2100, Until Mon | | | | | | | 09/30/17 at 2058 | | | | | | + + + +------+-------+---+ +---------+ +------+-------+---+ | New Bag | 09/30/19 | 52 g | 18.6 | | | | 18 9:11 | | mL/hr | | | | PM PDT | | | | +---------+ +------+-------+---+ +---+---+ | | | +---+---+ + + + +------+-------+---+ | fat emulsion (SMOFLIPID) 20 % | Rate/Dos | 10/02/19 | 52 g | 18.6 | | | IV infusion 52 g 52 g, | e Verify | 18 6:25 | | mL/hr | | | intravenous, TPN 2100, Starting | | AM PDT | | | | | 09/30/17 at 2099, Until Tue | | | | | | | 10/01/17 at 2058 | | | | | | + + + +------+-------+---+ + + +------+-------+---+ | Rate/Dose Verify | 10/02/19 | 52 g | 18.6 | | | | 18 2:18 | | mL/hr | | | | AM PDT | | | | + + +------+-------+---+ | New Bag | 10/01/19 | 52 g | 18.6 | | | | 18 9:40 | | mL/hr | | | | PM PDT | | | | + + +------+-------+---+ +---+---+ | | | +---+---+ + + + +------+-------+---+ | fat emulsion (SMOFLIPID) 20 % | Rate/Dos | 10/03/19 | 52 g | 18.6 | | | IV infusion 52 g 52 g, | e Verify | 18 5:43 | | mL/hr | | | intravenous, TPN 2100, Starting | | AM PDT | | | | | 10/01/17 at 2099, Until Wed | | | | | | | 10/02/17 at 2058 | | | | | | + + + +------+-------+---+ + + +------+-------+---+ | Rate/Dose Verify | 10/03/19 | 52 g | 18.6 | | | | 18 1:19 | | mL/hr | | | | AM PDT | | | | + + +------+-------+---+ | New Bag | 10/02/19 | 52 g | 18.6 | | | | 18 9:15 | | mL/hr | | | | PM PDT | | | | + + +------+-------+---+ +---+---+ | | | +---+---+ + + + +------+-------+---+ | fat emulsion (SMOFLIPID) 20 % | Restarte | 10/28/19 | 52 g | 10.8 | | | IV infusion 52 g 52 g, | d | 18 1:45 | | mL/hr | | | intravenous, TPN 2100, Starting | | PM PDT | | | | | 10/26/17 at 2100, Until Sun | | | | | | | 10/27/17 at 2058 | | | | | | + + + +------+-------+---+ +---------+ +------+-------+---+ | New Bag | 10/27/19 | 52 g | 10.8 | | | | 18 9:53 | | mL/hr | | | | PM PDT | | | | +---------+ +------+-------+---+ +---+---+ | | | +---+---+ + + + +------+-------+---+ | fat emulsion (SMOFLIPID) 20 % | Rate/Dos | 10/29/19 | 52 g | 10.8 | | | IV infusion 52 g 52 g, | e Verify | 18 3:45 | | mL/hr | | | intravenous, TPN 2099, Starting | | AM PDT | | | | | 10/27/17 at 2099, Until Mon | | | | | | | 10/28/17 at 2058 | | | | | | + + + +------+-------+---+ +---------+ +------+-------+---+ | New Bag | 10/28/19 | 52 g | 10.8 | | | | 18 9:42 | | mL/hr | | | | PM PDT | | | | +---------+ +------+-------+---+ +---+---+ | | | +---+---+ + + + +------+-------+---+ | fat emulsion (SMOFLIPID) 20 % | Rate/Dos | 10/30/19 | 52 g | 10.8 | | | IV infusion 52 g 52 g, | e Verify | 18 1:51 | | mL/hr | | | intravenous, TPN 2100, Starting | | PM PDT | | | | | 10/28/17 at 2100, Until Tue | | | | | | | 10/29/17 at 1518 | | | | | | + + + +------+-------+---+ + + +------+-------+---+ | Rate/Dose Verify | 10/30/19 | 52 g | 10.8 | | | | 18 8:11 | | mL/hr | | | | AM PDT | | | | + + +------+-------+---+ | New Bag | 10/29/19 | 52 g | 10.8 | | | | 18 8:55 | | mL/hr | | | | PM PDT | | | | + + +------+-------+---+ +---+---+ | | | +---+---+ + + + +------+-------+---+ | fat emulsion (SMOFLIPID) 20 % | Rate/Dos | 09/20/19 | 57 g | 11.9 | | | IV infusion 57 g 57 g, | e Verify | 18 2:17 | | mL/hr | | | intravenous, TPN 2099, Starting | | AM PDT | | | | | 09/18/17 at 2099, Until Sho | | | | | | | 09/19/17 at 2058 | | | | | | + + + +------+-------+---+ +---------+ +------+-------+---+ | New Bag | 09/19/19 | 57 g | 11.9 | | | | 18 9:05 | | mL/hr | | | | PM PDT | | | | +---------+ +------+-------+---+ +---+---+ | | | +---+---+ + + + +------+-------+---+ | fat emulsion (SMOFLIPID) 20 % | Rate/Dos | 09/21/19 | 57 g | 20.4 | | | IV infusion 57 g 57 g, | e Verify | 18 2:41 | | mL/hr | | | intravenous, TPN 2099, Starting | | AM PDT | | | | | Sho 09/19/17 at 2099, Until Fri | | | | | | | 09/20/17 at 2058 | | | | | | + + + +------+-------+---+ +---------+ +------+-------+---+ | New Bag | 09/20/19 | 57 g | 20.4 | | | | 18 8:49 | | mL/hr | | | | PM PDT | | | | +---------+ +------+-------+---+ +---+---+ | | | +---+---+ + + + +------+-------+---+ | fat emulsion (SMOFLIPID) 20 % | Rate/Dos | 09/22/19 | 57 g | 20.4 | | | IV infusion 57 g 57 g, | e Verify | 18 8:46 | | mL/hr | | | intravenous, TPN 2100, Starting | | AM PDT | | | | | 09/20/17 at 2099, Until Sat | | | | | | | 09/21/17 at 2058 | | | | | | + + + +------+-------+---+ + + +------+-------+---+ | Rate/Dose Verify | 09/22/19 | 57 g | 20.4 | | | | 18 4:45 | | mL/hr | | | | AM PDT | | | | + + +------+-------+---+ | New Bag | 09/21/19 | 57 g | 20.4 | | | | 18 9:44 | | mL/hr | | | | PM PDT | | | | + + +------+-------+---+ +---+---+ | | | +---+---+ + + + +------+-------+---+ | fat emulsion (SMOFLIPID) 20 % | Rate/Dos | 09/23/19 | 57 g | 20.4 | | | IV infusion 57 g 57 g, | e Verify | 18 11:29 | | mL/hr | | | intravenous, TPN 2100, Starting | | AM PDT | | | | | 09/21/17 at 2099, Until Sun | | | | | | | 09/22/17 at 2058 | | | | | | + + + +------+-------+---+ + + +------+-------+---+ | Rate/Dose Verify | 09/23/19 | 57 g | 20.4 | | | | 18 7:41 | | mL/hr | | | | AM PDT | | | | + + +------+-------+---+ | Rate/Dose Verify | 09/23/19 | 57 g | 20.4 | | | | 18 2:37 | | mL/hr | | | | AM PDT | | | | + + +------+-------+---+ +---+---+ | | | +---+---+ + +---------+ +------+-------+---+ | fat emulsion (SMOFLIPID) 20 % | New Bag | 09/23/19 | 57 g | 20.4 | | | IV infusion 57 g 57 g, | | 18 9:25 | | mL/hr | | | intravenous, TPN 2100, Starting | | PM PDT | | | | | 09/22/17 at 2099, Until Mon | | | | | | | 09/23/17 at 2058 | | | | | | + +---------+ +------+-------+---+ +---+---+ | | | +---+---+ + +---------+ +------+-------+---+ | fat emulsion (SMOFLIPID) 20 % | New Bag | 09/24/19 | 57 g | 20.4 | | | IV infusion 57 g 57 g, | | 18 9:05 | | mL/hr | | | intravenous, TPN 2099, Starting | | PM PDT | | | | | 09/23/17 at 2099, Until Tue | | | | | | | 09/24/17 at 2058 | | | | | | + +---------+ +------+-------+---+ +---+---+ | | | +---+---+ + + + +------+-------+---+ | fat emulsion (SMOFLIPID) 20 % | Restarte | 09/26/19 | 57 g | 20.4 | | | IV infusion 57 g 57 g, | d | 18 7:58 | | mL/hr | | | intravenous, TPN 2099, Starting | | AM PDT | | | | | 09/24/17 at 2099, Until Wed | | | | | | | 09/25/17 at 2058 | | | | | | + + + +------+-------+---+ +---------+ +------+-------+---+ | New Bag | 09/25/19 | 57 g | 20.4 | | | | 18 9:53 | | mL/hr | | | | PM PDT | | | | +---------+ +------+-------+---+ +---+---+ | | | +---+---+ + +---------+ +------+-------+---+ | fat emulsion (SMOFLIPID) 20 % | New Bag | 09/26/19 | 57 g | 20.4 | | | IV infusion 57 g 57 g, | | 18 9:20 | | mL/hr | | | intravenous, TPN 2100, Starting | | PM PDT | | | | | 09/25/17 at 2099, Until Sho | | | | | | | 09/26/17 at 2058 | | | | [...] fentaNYL (SUBLIMAZE) bolus from | Bolus | 09/05/19 | 50 mcg | | | | continuous infusion 50-100 mcg | from | 18 9:23 | | | | | intravenous, EVERY 30 MINUTES | Same Bag | AM PDT | | | | | NEEDED, Starting 08/31/17 at | | | | | | | 1858, Until 09/04/17 at 1011, | | | | | | | CPOT not at goal | | | | | | + + + +--------+---+---+ + + +--------+---+---+ | Bolus from Same Bag | 09/05/19 | 50 mcg | | | | | 18 8:00 | | | | | | AM PDT | | | | + + +--------+---+---+ | Bolus from Same Bag | 09/05/19 | 50 mcg | | | | | 18 7:00 | | | | | | AM PDT | | | | + + +--------+---+---+ +---+---+ | | | +---+---+ + +-------+ +---------+---+---+ | fentaNYL (SUBLIMAZE) injection | Given | 09/02/19 | 100 mcg | | | | 100 mcg 100 mcg, intravenous, | | 18 4:56 | | | | | ONCE, 1 dose, [place] 09/01/17 at 0230 | | AM PDT | | | | + +-------+ +---------+---+---+ + +---+ | | | + +---+ | fentaNYL (SUBLIMAZE) injection | | | 1 dose, Starting 08/31/17 at | | | 1656, Until [place] 09/01/17 at 0456 | | + +---+ | | | + +---+ + +---------+ +--------+---+---+ | fluconazole IV 400 mg IN NaCl | New Bag | 10/25/19 | 400 mg | | | | (RTU) 400 mg, intravenous, EVERY | | 18 5:36 | | | | | 24 HOURS, First dose on Sat | | AM PDT | | | | | 10/22/17 at 0145, Until | | | | | | | Discontinued | | | | | | + +---------+ +--------+---+---+ +---------+ +--------+---+---+ | New Bag | 10/24/19 | 400 mg | | | | | 18 3:27 | | | | | | AM PDT | | | | +---------+ +--------+---+---+ | New Bag | 10/23/19 | 400 mg | | | | | 18 2:45 | | | | | | AM PDT | | | | +---------+ +--------+---+---+ +---+---+ | | | +---+---+ + +-------+ +------+---+---+ | folic acid (FOLVITE) tablet 1 | Given | 09/04/19 | 1 mg | | | | mg 1 mg, oral, DAILY, 3 doses, | | 18 11:33 | | | | | First dose on Sat09/01/17 at 2030, | | AM PDT | | | | | Last dose on Sat09/03/17 at 0900 | | | | | | + +-------+ +------+---+---+ +-------+ +------+---+---+ | Given | 09/03/19 | 1 mg | | | | | 18 8:54 | | | | | | AM PDT | | | | +-------+ +------+---+---+ | Given | 09/02/19 | 1 mg | | | | | 18 10:37 | | | | | | PM PDT | | | | +-------+ +------+---+---+ +---+---+ | | | +---+---+ + +-------+ +------+---+---+ | folic acid (FOLVITE) tablet 1 | Given | 09/10/19 | 1 mg | | | | mg 1 mg, oral, DAILY, 3 doses, | | 18 9:21 | | | | | First dose on 09/07/17 at | | AM PDT | | | | | 1930, Last dose on 09/09/17 at | | | | | | | 0900 | | | | | | + +-------+ +------+---+---+ +-------+ +------+---+---+ | Given | 09/09/19 | 1 mg | | | | | 18 8:21 | | | | | | AM PDT | | | | +-------+ +------+---+---+ | Given | 09/08/19 | 1 mg | | | | | 18 6:30 | | | | | | PM PDT | | | | +-------+ +------+---+---+ +---+---+ | | | +---+---+ + +-------+ +------+---+---+ | folic acid (FOLVITE) tablet 1 | Given | 09/23/19 | 1 mg | | | | mg 1 mg, oral, DAILY, First dose | | 18 8:41 | | | | | on 09/21/17 at 1230, Until | | AM PDT | | | | | Discontinued | | | | | | + +-------+ +------+---+---+ +-------+ +------+---+---+ | Given | 09/22/19 | 1 mg | | | | | 18 12:03 | | | | | | PM PDT | | | | +-------+ +------+---+---+ +---+---+ | | | +---+---+ + + + +---------+---------+---+ | furosemide (LASIX) 100 mg in | Rate/Dos | 09/05/19 | 2 mg/hr | 2 mL/hr | | | NaCl 0.9 % 100 mL (1 mg/mL) IV | e Change | 18 3:00 | | | | | infusion 1-20 mg/hr (1-20 | | PM PDT | | | | | mL/hr), intravenous, CONTINUOUS, | | | | | | | Starting Sat09/04/17 at 1045, | | | | | | | Until Sat09/04/17 at 1701 | | | | | | + + + +---------+---------+---+ + + +---------+---------+---+ | Rate/Dose Change | 09/05/19 | 4 mg/hr | 4 mL/hr | | | | 18 1:16 | | | | | | PM PDT | | | | + + +---------+---------+---+ | Rate/Dose Verify | 09/05/19 | 2 mg/hr | 2 mL/hr | | | | 18 12:00 | | | | | | PM PDT | | | | + + +---------+---------+---+ +---+---+ | | | +---+---+ + + + +---------+---------+---+ | furosemide (LASIX) 100 mg in | Rate/Dos | 09/05/19 | 1 mg/hr | 1 mL/hr | | | NaCl 0.9 % 100 mL (1 mg/mL) IV | e Change | 18 6:17 | | | | | infusion 1-20 mg/hr (1-20 | | PM PDT | | | | | mL/hr), intravenous, CONTINUOUS, | | | | | | | Starting 09/04/17 at 1715, | | | | | | | Until [facility] 09/05/17 at 0727 | | | | | | + + + +---------+---------+---+ +---+---+ | | | +---+---+ + +---------+ +-------+---+---+ | gadoterate meglumine (DOTAREM) | IV Push | 09/26/19 | 12 mL | | | | 0.5 mmol/mL injection 12 mL 12 | | 18 6:42 | | | | | mL, intravenous, ONCE, 1 dose, | | AM PDT | | | | | 09/25/17 at 0715 | | | | | | + +---------+ +-------+---+---+ + +---+ | | | + +---+ | glucagon (GLUCAGEN) injection 1 | | | mg 1 mg, intramuscular, | | | NEEDED, Starting Sho 09/26/17 at | | | 0029, Until Sat12/06/17 at 2, | | | CBG less than 70 mg/dL per Adult | | | Hypoglycemia Protocol | | + +---+ | | | + +---+ + +-------+ +------+---+---+ | haloperidol (HALDOL) liquid 1 | Given | 11/06/19 | 1 mg | | | | mg 1 mg, feeding tube, EVERY 2 | | 18 2:33 | | | | | HOURS NEEDED, Starting Mon | | AM PDT | | | | | 10/28/17 at 1102, Until 11/15/17 | | | | | | | at 1331, agitation | | | | | | + +-------+ +------+---+---+ +-------+ +------+---+---+ | Given | 11/05/19 | 1 mg | | | | | 18 9:12 | | | | | | AM PDT | | | | +-------+ +------+---+---+ | Given | 11/02/19 | 1 mg | | | | | 18 2:43 | | | | | | AM PDT | | | | +-------+ +------+---+---+ +---+---+ | | | +---+---+ + +-------+ +--------+---+---+ | haloperidol (HALDOL) liquid 2.5 | Given | 10/22/19 | 2.5 mg | | | | mg 2.5 mg, feeding tube, EVERY | | 18 8:40 | | | | | MORNING, First dose on Sho | | AM PDT | | | | | 10/17/17 at 1515, Until | | | | | | | Discontinued | | | | | | + +-------+ +--------+---+---+ +-------+ +--------+---+---+ | Given | 10/21/19 | 2.5 mg | | | | | 18 8:58 | | | | | | AM PDT | | | | +-------+ +--------+---+---+ | Given | 10/20/19 | 2.5 mg | | | | | 18 11:19 | | | | | | AM PDT | | | | +-------+ +--------+---+---+ +---+---+ | | | +---+---+ + +-------+ +------+---+---+ | haloperidol (HALDOL) liquid 5 | Given | 10/18/19 | 5 mg | | | | mg 5 mg, feeding tube, TWICE | | 18 10:34 | | | | | DAILY, First dose on 10/06/17 | | AM PDT | | | | | at 2100, Until Discontinued | | | | | | + +-------+ +------+---+---+ +-------+ +------+---+---+ | Given | 10/17/19 | 5 mg | | | | | 18 8:33 | | | | | | PM PDT | | | | +-------+ +------+---+---+ | Given | 10/17/19 | 5 mg | | | | | 18 9:32 | | | | | | AM PDT | | | | +-------+ +------+---+---+ +---+---+ | | | +---+---+ + +-------+ +------+---+---+ | haloperidol (HALDOL) liquid 5 | Given | 10/22/19 | 5 mg | | | | mg 5 mg, feeding tube, AT | | 18 9:30 | | | | | BEDTIME, First dose on Sho | | PM PDT | | | | | 10/17/17 at 2200, Until | | | | | | | Discontinued | | | | | | + +-------+ +------+---+---+ +-------+ +------+---+---+ | Given | 10/21/19 | 5 mg | | | | | 18 9:26 | | | | | | PM PDT | | | | +-------+ +------+---+---+ | Given | 10/20/19 | 5 mg | | | | | 18 9:51 | | | | | | PM PDT | | | | +-------+ +------+---+---+ +---+---+ | | | +---+---+ + +-------+ +------+---+---+ | haloperidol (HALDOL) liquid 5 | Given | 11/19/19 | 5 mg | | | | mg 5 mg, feeding tube, AT | | 18 10:29 | | | | | BEDTIME, First dose on Sat10/28/17 | | PM PDT | | | | | at 2200, Until Discontinued | | | | | | + +-------+ +------+---+---+ +-------+ +------+---+---+ | Given | 11/18/19 | 5 mg | | | | | 18 9:21 | | | | | | PM PDT | | | | +-------+ +------+---+---+ | Given | 11/17/19 | 5 mg | | | | | 18 10:04 | | | | | | PM [...] haloperidol (HALDOL) liquid 5 | Given | 12/03/19 | 5 mg | | | | mg 5 mg, feeding tube, EVERY 6 | | 18 1:18 | | | | | HOURS NEEDED, Starting Sun | | PM PDT | | | | | 12/01/17 at 0842, Until 12/02/17 | | | | | | | at 1508, aggression, | | | | | | | non-redirectable combativeness | | | | | | + +-------+ +------+---+---+ +-------+ +------+---+---+ | Given | 12/03/19 | 5 mg | | | | | 18 12:51 | | | | | | AM PDT | | | | +-------+ +------+---+---+ | Given | 12/02/19 | 5 mg | | | | | 18 2:08 | | | | | | PM [...] | haloperidol lactate (HALDOL) | Given | 10/26/19 | 1 mg | | | | injection 1 mg 1 mg, | | 18 5:10 | | | | | intravenous, EVERY 2 HOURS | | PM PDT | | | | | NEEDED, Starting Sat10/22/17 at | | | | | | | 1611, Until Sat10/28/17 at 1108, | | | | | | | agitation | | | | | | + +-------+ +------+---+---+ +---+---+ | | | +---+---+ + +-------+ +------+---+---+ | haloperidol lactate (HALDOL) | Given | 09/29/19 | 2 mg | | | | injection 2 mg 2 mg, | | 18 8:19 | | | | | intravenous, THREE TIMES DAILY, | | AM PDT | | | | | First dose (after last | | | | | | | modification) on Sat09/24/17 at | | | | | | | 1445, Until Discontinued | | | | | | + +-------+ +------+---+---+ +-------+ +------+---+---+ | Given | 09/28/19 | 2 mg | | | | | 18 10:21 | | | | | | PM PDT | | | | +-------+ +------+---+---+ | Given | 09/28/19 | 2 mg | | | | | 18 4:19 | | | | | | PM PDT | | | | +-------+ +------+---+---+ +---+---+ | | | +---+---+ + +-------+ +------+---+---+ | haloperidol lactate (HALDOL) | Given | 10/15/19 | 5 mg | | | | injection 2-5 mg 2-5 mg, | | 18 6:52 | | | | | intravenous, ONCE, 1 dose, Mon | | AM PDT | | | | | 10/14/17 at 0730 | | | | | | + +-------+ +------+---+---+ +---+---+ | | | +---+---+ + +-------+ +--------+---+---------+ | haloperidol lactate (HALDOL) | Given | 12/04/19 | 2.5 mg | | Left | | injection 2.5 mg 2.5 mg, | | 18 1:21 | | | Deltoid | | intramuscular, EVERY 6 HOURS | | AM PDT | | | | | NEEDED, Starting Sat12/02/17 at | | | | | | | 1528, Until Sat12/03/17 at 1131, | | | | | | | aggression, non-redirectable | | | | | | | combativeness | | | | | | + +-------+ +--------+---+---------+ +-------+ +--------+---+---------+ | Given | 12/03/19 | 2.5 mg | | Left | | | 18 4:01 | | | Deltoid | | | PM PDT | | | | +-------+ +--------+---+---------+ +---+---+ | | | +---+---+ + +-------+ +------+---+---+ | haloperidol lactate (HALDOL) | Given | 10/27/19 | 3 mg | | | | injection 3 mg 3 mg, | | 18 9:52 | | | | | intravenous, AT BEDTIME, First | | PM PDT | | | | | dose on Sat10/22/17 at 2200, | | | | | | | Until Discontinued | | | | | | + +-------+ +------+---+---+ +-------+ +------+---+---+ | Given | 10/26/19 | 3 mg | | | | | 18 10:25 | | | | | | PM PDT | | | | +-------+ +------+---+---+ | Given | 10/25/19 | 3 mg | | | | | 18 10:17 | | | | | | PM PDT | | | | +-------+ +------+---+---+ +---+---+ | | | +---+---+ + +-------+ +------+---+---+ | haloperidol lactate (HALDOL) | Given | 09/07/19 | 5 mg | | | | injection 5 mg 5 mg, | | 18 7:06 | | | | | intravenous, EVERY 2 HOURS | | AM PDT | | | | | NEEDED, Starting 09/04/17 at | | | | | | | 1004, Until Sat09/06/17 at 1741, | | | | | | | agitation | | | | | | + +-------+ +------+---+---+ +-------+ +------+---+---+ | Given | 09/07/19 | 5 mg | | | | | 18 4:53 | | | | | | AM PDT | | | | +-------+ +------+---+---+ | Given | 09/06/19 | 5 mg | | | | | 18 8:04 | | | | | | PM PDT | | | | +-------+ +------+---+---+ +---+---+ | | | +---+---+ + +-------+ +------+---+---+ | haloperidol lactate (HALDOL) | Given | 09/23/19 | 5 mg | | | | injection 5 mg 5 mg, | | 18 1:19 | | | | | intravenous, EVERY 12 HOURS | | AM PDT | | | | | NEEDED, Starting 09/07/17 at | | | | | | | 1304, Until 09/22/17 at 0854, | | | | | | | agitation | | | | | | + +-------+ +------+---+---+ +-------+ +------+---+---+ | Given | 09/22/19 | 5 mg | | | | | 18 1:00 | | | | | | PM PDT | | | | +-------+ +------+---+---+ | Given | 09/21/19 | 5 mg | | | | | 18 5:31 | | | | | | PM PDT | | | | +-------+ +------+---+---+ +---+---+ | | | +---+---+ + +-------+ +------+---+---+ | haloperidol lactate (HALDOL) | Given | 10/02/19 | 5 mg | | | | injection 5 mg 5 mg, | | 18 2:19 | | | | | intravenous, EVERY 6 HOURS | | AM PDT | | | | | NEEDED, Starting 09/24/17 at | | | | | | | 1214, Until 10/08/17 at 1052, | | | | | | | agitation | | | | | | + +-------+ +------+---+---+ +-------+ +------+---+---+ | Given | 10/01/19 | 5 mg | | | | | 18 4:32 | | | | | | AM PDT | | | | +-------+ +------+---+---+ | Given | 09/30/19 | 5 mg | | | | | 18 4:15 | | | | | | PM PDT | | | | +-------+ +------+---+---+ +---+---+ | | | +---+---+ + +-------+ +------+---+---+ | haloperidol lactate (HALDOL) | Given | 10/03/19 | 5 mg | | | | injection 5 mg 5 mg, | | 18 10:28 | | | | | intravenous, THREE TIMES DAILY, | | AM PDT | | | | | First dose (after last | | | | | | | modification) on 09/28/17 at | | | | | | | 1600, Until Discontinued | | | | | | + +-------+ +------+---+---+ +-------+ +------+---+---+ | Given | 10/02/19 | 5 mg | | | | | 18 9:34 | | | | | | PM PDT | | | | +-------+ +------+---+---+ | Given | 10/02/19 | 5 mg | | | | | 18 5:25 | | | | | | PM PDT | | | | +-------+ +------+---+---+ +---+---+ | | | +---+---+ + +-------+ +------+---+---+ | haloperidol lactate (HALDOL) | Given | 10/07/19 | 5 mg | | | | injection 5 mg 5 mg, | | 18 10:07 | | | | | intravenous, TWICE DAILY, First | | AM PDT | | | | | dose (after last modification) on | | | | | | | 10/02/17 at 2100, Until | | | | | | | Discontinued | | | | | | + +-------+ +------+---+---+ +-------+ +------+---+---+ | Given | 10/06/19 | 5 mg | | | | | 18 9:32 | | | | | | PM PDT | | | | +-------+ +------+---+---+ | Given | 10/06/19 | 5 mg | | | | | 18 7:45 | | | | | | AM PDT | | | | +-------+ +------+---+---+ +---+---+ | | | +---+---+ + +-------+ +------+---+---+ | haloperidol lactate (HALDOL) | Given | 10/28/19 | 5 mg | | | | injection 5 mg 5 mg, | | 18 9:41 | | | | | intravenous, AT BEDTIME, First | | PM PDT | | | | | dose (after last modification) on | | | | | | | 10/27/17 at 2200, Until | | | | | | | Discontinued | | | | | | + +-------+ +------+---+---+ + +---+ | | | + +---+ | haloperidol lactate (HALDOL) | | | injection 5 mg 5 mg, | | | intramuscular, EVERY 6 HOURS | | | NEEDED, Starting 12/03/17 at | | | 1128, Until 12/06/17 at 2052, | | | aggression, non-redirectable | | | combativeness | | + +---+ | | | + +---+ + +-------+ +-------+---+---+ | hydrALAZINE (APRESOLINE) | Given | 11/06/19 | 10 mg | | | | injection 10 mg 10 mg, | | 18 8:26 | | | | | intravenous, EVERY 2 HOURS | | PM PDT | | | | | NEEDED, Starting 09/22/17 at | | | | | | | 1254, Until 11/23/17 at 1511, | | | | | | | hypertension, 2nd line | | | | | | + +-------+ +-------+---+---+ +---+---+ | | | +---+---+ + +-------+ +--------+---+---+ | HYDROmorphone (DILAUDID) | Given | 09/05/19 | 0.5 mg | | | | injection 0.2-0.6 mg 0.2-0.6 mg, | | 18 10:20 | | | | | intravenous, EVERY 2 HOURS | | AM PDT | | | | | NEEDED, Starting 08/31/17 at | | | | | | | 1849, Until Sat09/04/17 at 1155, | | | | | | | severe pain | | | | | | + +-------+ +--------+---+---+ +---+---+ | | | +---+---+ + +-------+ +--------+---+---+ | HYDROmorphone (DILAUDID) | Given | 11/07/19 | 0.5 mg | | | | injection 0.2-0.6 mg 0.2-0.6 mg, | | 18 3:23 | | | | | intravenous, EVERY 2 HOURS | | PM PDT | | | | | NEEDED, Starting 10/13/17 at | | | | | | | 0840, Until Sat11/15/17 at 1332, | | | | | | | severe pain | | | | | | + +-------+ +--------+---+---+ +-------+ +--------+---+---+ | Given | 11/07/19 | 0.5 mg | | | | | 18 9:15 | | | | | | AM PDT | | | | +-------+ +--------+---+---+ | Given | 11/07/19 | 0.5 mg | | | | | 18 6:32 | | | | | | AM PDT | | | | +-------+ +--------+---+---+ +---+---+ | | | +---+---+ + +-------+ +------+---+---+ | HYDROmorphone (DILAUDID) | Given | 09/06/19 | 1 mg | | | | injection 0.5-1 mg 0.5-1 mg, | | 18 1:30 | | | | | intravenous, EVERY 2 HOURS | | PM PDT | | | | | NEEDED, Starting Sho 09/05/17 at | | | | | | | 0909, Until Sho 09/05/17 at 1415, | | | | | | | severe pain | | | | | | + +-------+ +------+---+---+ +-------+ +--------+---+---+ | Given | 09/06/19 | 0.5 mg | | | | | 18 10:18 | | | | | | AM PDT | | | | +-------+ +--------+---+---+ | Given | 09/06/19 | 0.5 mg | | | | | 18 9:18 | | | | | | AM PDT | | | | +-------+ +--------+---+---+ +---+---+ | | | +---+---+ + +-------+ +--------+---+---+ | HYDROmorphone (DILAUDID) | Given | 09/05/19 | 0.5 mg | | | | injection 0.5-1.5 mg 0.5-1.5 mg, | | 18 3:02 | | | | | intravenous, EVERY 2 HOURS | | PM PDT | | | | | NEEDED, Starting Sat09/04/17 at | | | | | | | 1155, Until Sat09/04/17 at 1701, | | | | | | | severe pain | | | | | | + +-------+ +--------+---+---+ +-------+ +--------+---+---+ | Given | 09/05/19 | 0.5 mg | | | | | 18 12:05 | | | | | | PM PDT | | | | +-------+ +--------+---+---+ +---+---+ | | | +---+---+ + +-------+ +------+---+---+ | HYDROmorphone (DILAUDID) | Given | 09/08/19 | 1 mg | | | | injection 0.5-1.5 mg 0.5-1.5 mg, | | 18 7:28 | | | | | intravenous, EVERY 2 HOURS | | AM PDT | | | | | NEEDED, Starting Sho 09/05/17 at | | | | | | | 1415, Until Sho 09/19/17 at 1711, | | | | | | | severe pain | | | | | | + +-------+ +------+---+---+ +-------+ +--------+---+---+ | Given | 09/08/19 | 1 mg | | | | | 18 3:44 | | | | | | AM PDT | | | | +-------+ +--------+---+---+ | Given | 09/07/19 | 0.5 mg | | | | | 18 5:33 | | | | | | PM PDT | | | | +-------+ +--------+---+---+ +---+---+ | | | +---+---+ + +-------+ +--------+---+---+ | HYDROmorphone (DILAUDID) | Given | 10/02/19 | 0.5 mg | | | | injection 0.5-1.5 mg 0.5-1.5 mg, | | 18 6:22 | | | | | intravenous, EVERY 2 HOURS | | AM PDT | | | | | NEEDED, Starting [facility] 09/19/17 at | | | | | | | 1711, Until Sat10/08/17 at 1052, | | | | | | | severe pain, or moderate pain | | | | | | | unable to give oral medication | | | | | | + +-------+ +--------+---+---+ +-------+ +--------+---+---+ | Given | 10/01/19 | 0.5 mg | | | | | 18 10:47 | | | | | | AM PDT | | | | +-------+ +--------+---+---+ | Given | 10/01/19 | 0.5 mg | | | | | 18 12:31 | | | | | | AM PDT | | | | +-------+ +--------+---+---+ +---+---+ | | | +---+---+ + +-------+ +------+---+---+ | HYDROmorphone (DILAUDID) tablet | Given | 09/06/19 | 4 mg | | | | 2-4 mg 2-4 mg, oral, EVERY 3 | | 18 11:45 | | | | | HOURS NEEDED, Starting Wed | | AM PDT | | | | | 09/04/17 at 1659, Until Sho 09/05/17 | | | | | | | at 1415, moderate pain | | | | | | + +-------+ +------+---+---+ +-------+ +------+---+---+ | Given | 09/06/19 | 4 mg | | | | | 18 8:18 | | | | | | AM PDT | | | | +-------+ +------+---+---+ | Given | 09/06/19 | 4 mg | | | | | 18 4:02 | | | | | | AM PDT | | | | +-------+ +------+---+---+ +---+---+ | | | +---+---+ + +-------+ +------+---+---+ | HYDROmorphone (DILAUDID) tablet | Given | 09/07/19 | 6 mg | | | | 2-6 mg 2-6 mg, oral, EVERY 3 | | 18 4:53 | | | | | HOURS NEEDED, Starting Sho | | AM PDT | | | | | 09/05/17 at 1415, Until Fri | | | | | | | 09/06/17 at 0705, moderate pain | | | | | | + +-------+ +------+---+---+ +-------+ +------+---+---+ | Given | 09/07/19 | 6 mg | | | | | 18 12:23 | | | | | | AM PDT | | | | +-------+ +------+---+---+ | Given | 09/06/19 | 6 mg | | | | | 18 9:16 | | | | | | PM PDT | | | | +-------+ +------+---+---+ +---+---+ | | | +---+---+ + +-------+ +------+---+---+ | HYDROmorphone (DILAUDID) tablet | Given | 09/07/19 | 6 mg | | | | 2-6 mg 2-6 mg, feeding tube, | | 18 7:51 | | | | | EVERY 3 HOURS NEEDED, Starting | | AM PDT | | | | | 09/06/17 at 0705, Until Fri | | | | | | | 09/06/17 at 1002, moderate pain | | | | | | + +-------+ +------+---+---+ +---+---+ | | | +---+---+ + +-------+ +------+---+---+ | HYDROmorphone (DILAUDID) tablet | Given | 09/25/19 | 4 mg | | | | 2-6 mg 2-6 mg, oral, EVERY 3 | | 18 2:44 | | | | | HOURS NEEDED, Starting Fri | | AM PDT | | | | | 09/06/17 at 1000, Until Tue | | | | | | | 09/24/17 at 1430, moderate pain | | | | | | + +-------+ +------+---+---+ +-------+ +------+---+---+ | Given | 09/24/19 | 2 mg | | | | | 18 9:43 | | | | | | PM PDT | | | | +-------+ +------+---+---+ | Given | 09/24/19 | 4 mg | | | | | 18 3:49 | | | | | | PM PDT | | | | +-------+ +------+---+---+ +---+---+ | | | +---+---+ + +-------+ +---------+---+--------+ | insulin lispro (HUMALOG) | Given | 10/08/19 | 2 Units | | Right | | injection subcutaneous, FOUR | | 18 11:59 | | | Arm | | TIMES DAILY, First dose on Sho | | AM PDT | | | | | 09/26/17 at 0800, Until | | | | | | | Discontinued | | | | | | + +-------+ +---------+---+--------+ +-------+ +---------+---+ + | Given | 10/06/19 | 2 Units | | Left Arm | | | 18 12:39 | | | | | | PM PDT | | | | +-------+ +---------+---+ + | Given | 10/03/19 | 2 Units | | Right | | | 18 6:11 | | | Arm | | | AM PDT | | | | +-------+ +---------+---+ + +---+---+ | | | +---+---+ + +-------+ +-------+---+---+ | iohexol (OMNIPAQUE) 300 mg | Given | 10/13/19 | 30 mL | | | | iodine/mL 30 mL 30 mL, oral, | | 18 8:22 | | | | | ONCE, 1 dose, 10/12/17 at 0800 | | AM PDT | | | | + +-------+ +-------+---+---+ +---+---+ | | | +---+---+ + +-------+ +-------+---+---+ | iohexol (OMNIPAQUE) 300 mg | Given | 10/23/19 | 30 mL | | | | iodine/mL 30 mL 30 mL, oral, | | 18 2:21 | | | | | ONCE, 1 dose, [facility] 10/22/17 at 0215 | | AM PDT | | | | + +-------+ +-------+---+---+ +---+---+ | | | +---+---+ + +---------+ +--------+---+---+ | iohexol (OMNIPAQUE) 350 mg | IV Push | 09/12/19 | 100 mL | | | | iodine/mL injection 100 mL 100 | | 18 1:20 | | | | | mL, intravenous, ONCE, 1 dose, | | PM PDT | | | | | 09/11/17 at 1400 | | | | | | + +---------+ +--------+---+---+ +---+---+ | | | +---+---+ + +---------+ +--------+---+---+ | iohexol (OMNIPAQUE) 350 mg | IV Push | 10/13/19 | 100 mL | | | | iodine/mL injection 100 mL 100 | | 18 9:05 | | | | | mL, intravenous, PROCEDURE ONCE, | | AM PDT | | | | | 1 dose, 10/12/17 at 0915 | | | | | | + +---------+ +--------+---+---+ +---+---+ | | | +---+---+ + +---------+ +--------+---+---+ | iohexol (OMNIPAQUE) 350 mg | IV Push | 06/26/20 | 100 mL | | | | iodine/mL injection 100 mL 100 | | 18 4:30 | | | | | mL, intravenous, PROCEDURE ONCE, | | AM PDT | | | | | 1 dose, 10/22/17 at 0430 | | | | | | + +---------+ +--------+---+---+ +---+---+ | | | +---+---+ + +---------+ +--------+---+---+ | iohexol (OMNIPAQUE) 350 mg | IV Push | 11/12/19 | 100 mL | | | | iodine/mL injection 100 mL 100 | | 18 6:58 | | | | | mL, intravenous, ONCE, 1 dose, | | PM PDT | | | | | 11/11/17 at 1930 | | | | | | + +---------+ +--------+---+---+ +---+---+ | | | +---+---+ + +---------+ +--------+---+---+ | iohexol (OMNIPAQUE) 350 mg | IV Push | 09/01/19 | 150 mL | | | | iodine/mL injection 125 mL 125 | | 18 6:17 | | | | | mL, intravenous, ONCE, 1 dose, | | PM PDT | | | | | 08/31/17 at 1900 | | | | | | + +---------+ +--------+---+---+ +---+---+ | | | +---+---+ + +-------+ +-------+---+---+ | labetalol (TRANDATE) IV | Given | 09/06/19 | 10 mg | | | | injection 10 mg 10 mg, | | 18 6:45 | | | | | intravenous, EVERY 2 HOURS | | PM PDT | | | | | NEEDED, Starting 09/04/17 at | | | | | | | 1152, Until Sat10/11/17 at 1334, | | | | | | | hypertension, first line | | | | | | + +-------+ +-------+---+---+ +-------+ +-------+---+---+ | Given | 09/06/19 | 10 mg | | | | | 18 4:02 | | | | | | AM PDT | | | | +-------+ +-------+---+---+ | Given | 09/05/19 | 10 mg | | | | | 18 3:20 | | | | | | PM [...] IV 1,000 mL, | New Bag | 09/01/19 | 1,000 mL | | | | intravenous, ONCE, 1 dose, Sat | | 18 7:00 | | | | | 08/31/17 at 1930 | | PM PDT | | | | + +---------+ + +---+---+ +---+---+ | | | +---+---+ + + + +-------+-------+---+ | lactated Ringers IV 100 mL/hr, | Rate/Dos | 09/04/19 | 100 | 100 | | | intravenous, CONTINUOUS, | e Verify | 18 8:00 | mL/hr | mL/hr | | | Starting 08/31/17 at 2145, | | AM PDT | | | | | Until 09/03/17 at 0859 | | | | | | + + + +-------+-------+---+ + + +-------+-------+---+ | Rate/Dose Verify | 09/04/19 | 100 | 100 | | | | 18 7:43 | mL/hr | mL/hr | | | | AM PDT | | | | + + +-------+-------+---+ | Rate/Dose Verify | 09/04/19 | 100 | 100 | | | | 18 7:00 | mL/hr | mL/hr | | | | AM PDT | | | | + + +-------+-------+---+ +---+---+ | | | +---+---+ + +---------+ + +---+---+ | lactated Ringers IV 1,000 mL, | New Bag | 09/02/19 | 1,000 mL | | | | intravenous, ONCE, 1 dose, Sun | | 18 8:15 | | | | | 09/01/17 at 0815 | | AM PDT | | | | + +---------+ + +---+---+ +---+---+ | | | +---+---+ + +---------+ +--------+---+---+ | lactated Ringers IV 500 mL, | New Bag | 09/02/19 | 500 mL | | | | intravenous, ONCE, 1 dose, Mon | | 18 11:00 | | | | | 09/02/17 at 0000 | | PM PDT | | | | + +---------+ +--------+---+---+ +---+---+ | | | +---+---+ + +---------+ +--------+---+---+ | lactated Ringers IV 500 mL, | New Bag | 09/03/19 | 500 mL | | | | intravenous, ONCE, 1 dose, Sat | | 18 5:49 | | | | | 09/02/17 at 1815 | | PM PDT | | | | + +---------+ +--------+---+---+ +---+---+ | | | +---+---+ + +---------+ +--------+---+---+ | lactated Ringers IV 500 mL, | New Bag | 09/03/19 | 500 mL | | | | intravenous, ONCE, 1 dose, Sat | | 18 11:32 | | | | | 09/02/17 at 2345 | | PM PDT | | | | + +---------+ +--------+---+---+ +---+---+ | | | +---+---+ + + + + + +---+ | lactated Ringers IV 10 mL/hr, | Rate/Dos | 09/07/19 | 10 mL/hr | 10 mL/hr | | | intravenous, CONTINUOUS, Starting | e Verify | 18 7:00 | | | | | 09/04/17 at 0730, Until Fri | | AM PDT | | | | | 09/06/17 at 1002 | | | | | | + + + + + +---+ + + + + +---+ | Rate/Dose Verify | 09/07/19 | 10 mL/hr | 10 mL/hr | | | | 18 6:00 | | | | | | AM PDT | | | | + + + + +---+ | Rate/Dose Verify | 09/07/19 | 10 mL/hr | 10 mL/hr | | | | 18 5:00 | | | | | | AM PDT | | | | + + + + +---+ +---+---+ | | | +---+---+ + + + +-------+-------+---+ | lactated Ringers IV 100 mL/hr, | Rate/Dos | 09/16/19 | 100 | 100 | | | intravenous, CONTINUOUS, | e Verify | 18 1:29 | mL/hr | mL/hr | | | Starting 09/10/17 at 0630, | | AM PDT | | | | | Until 09/15/17 at 0923 | | | | | | + + + +-------+-------+---+ + + +-------+-------+---+ | New Bag | 09/15/19 | 100 | 100 | | | | 18 7:26 | mL/hr | mL/hr | | | | PM PDT | | | | + + +-------+-------+---+ | Rate/Dose Verify | 09/14/19 | 100 | 100 | | | | 18 8:00 | mL/hr | mL/hr | | | | PM PDT | | | | + + +-------+-------+---+ +---+---+ | | | +---+---+ + +---------+ + +-------+---+ | lactated Ringers IV 1,000 mL, | New Bag | 09/12/19 | 1,000 mL | 999 | | | intravenous, ONCE, 1 dose, Sat | | 18 2:30 | | mL/hr | | | 09/11/17 at 1330 | | PM PDT | | | | + +---------+ + +-------+---+ +---+---+ | | | +---+---+ + +---------+ +--------+---+---+ | lactated Ringers IV 100-1,000 | New Bag | 09/13/19 | 500 mL | | | | mL, intravenous, EVERY 8 HOURS, | | 18 2:53 | | | | | First dose (after last | | PM PDT | | | | | modification) on Sat09/11/17 at | | | | | | | 1400, Until Discontinued | | | | | | + +---------+ +--------+---+---+ + + +--------+-------+---+ | New Bag | 09/12/19 | 600 mL | 999 | | | | 18 9:29 | | mL/hr | | | | PM PDT | | | | + + +--------+-------+---+ | Bolus from Same Bag | 09/12/19 | 550 mL | 999 | | | | 18 1:40 | | mL/hr | | | | PM PDT | | | | + + +--------+-------+---+ +---+---+ | | | +---+---+ + +---------+ + +---+---+ | lactated Ringers IV 1,000 mL, | New Bag | 09/14/19 | 1,000 mL | | | | intravenous, ONCE, 1 dose, Fri | | 18 11:36 | | | | | 09/13/17 at 1100 | | AM PDT | | | | + +---------+ + +---+---+ +---+---+ | | | +---+---+ + + + +-------+-------+---+ | lactated Ringers IV 100 mL/hr, | Rate/Dos | 10/13/19 | 100 | 100 | | | intravenous, CONTINUOUS, | e Verify | 18 12:29 | mL/hr | mL/hr | | | Starting 10/12/17 at 0200, | | PM PDT | | | | | Until 10/13/17 at 0713 | | | | | | + + + +-------+-------+---+ + + +-------+-------+---+ | Rate/Dose Verify | 10/13/19 | 100 | 100 | | | | 18 8:01 | mL/hr | mL/hr | | | | AM PDT | | | | + + +-------+-------+---+ | New Bag | 10/13/19 | 100 | 100 | | | | 18 2:03 | mL/hr | mL/hr | | | | AM PDT | | | | + + +-------+-------+---+ +---+---+ | | | +---+---+ + + + +-------+-------+---+ | lactated Ringers IV 100 mL/hr, | Rate/Dos | 10/15/19 | 100 | 100 | | | intravenous, CONTINUOUS, | e Verify | 18 10:00 | mL/hr | mL/hr | | | Starting 10/12/17 at 2000, | | AM PDT | | | | | Until 10/14/17 at 1040 | | | | | | + + + +-------+-------+---+ + + +-------+-------+---+ | Rate/Dose Verify | 10/15/19 | 100 | 100 | | | | 18 9:00 | mL/hr | mL/hr | | | | AM PDT | | | | + + +-------+-------+---+ | Rate/Dose Verify | 10/15/19 | 100 | 100 | | | | 18 8:00 | mL/hr | mL/hr | | | | AM PDT | | | | + + +-------+-------+---+ +---+---+ | | | +---+---+ + + + +-------+-------+---+ | lactated Ringers IV 100 mL/hr, | Rate/Dos | 10/24/19 | 100 | 100 | | | intravenous, CONTINUOUS, | e Verify | 18 4:37 | mL/hr | mL/hr | | | Starting 10/22/17 at 0515, | | PM PDT | | | | | Until 10/23/17 at 2138 | | | | | | + + + +-------+-------+---+ + + +-------+-------+---+ | New Bag | 10/24/19 | 100 | 100 | | | | 18 9:50 | mL/hr | mL/hr | | | | AM PDT | | | | + + +-------+-------+---+ | Rate/Dose Verify | 10/24/19 | 100 | 100 | | | | 18 8:56 | mL/hr | mL/hr | | | | AM PDT | | | | + + +-------+-------+---+ +---+---+ | | | +---+---+ + +---------+ +--------+---+---+ | lactated Ringers IV 500 mL, | New Bag | 11/13/19 | 500 mL | | | | intravenous, ONCE, 1 dose, Tue | | 18 12:28 | | | | | 11/12/17 at 0030 | | AM PDT | | | | + +---------+ +--------+---+---+ +---+---+ | | | +---+---+ + +---------+ +--------+---+---+ | lactated Ringers IV 500 mL, | New Bag | 11/13/19 | 500 mL | | | | intravenous, ONCE, 1 dose, Tue | | 18 1:47 | | | | | 11/12/17 at 0145 | | AM PDT | | | | + +---------+ +--------+---+---+ +---+---+ | | | +---+---+ + +---------+ +--------+---+---+ | lactated Ringers IV 500 mL, | New Bag | 11/14/19 | 500 mL | | | | intravenous, ONCE, 1 dose, Sho | | 18 11:49 | | | | | 11/14/17 at 0000 | | PM PDT | | | | + +---------+ +--------+---+---+ +---+---+ | | | +---+---+ + +---------+ +--------+---+---+ | lactated Ringers IV 500 mL, | New Bag | 11/15/19 | 500 mL | | | | intravenous, ONCE, 1 dose, Sho | | 18 3:25 | | | | | 11/14/17 at 0330 | | AM PDT | | | | + +---------+ +--------+---+---+ +---+---+ | | | +---+---+ + +---------+ +--------+---+---+ | levETIRAcetam (KEPPRA) IV 500 | New Bag | 09/03/19 | 500 mg | | | | mg 500 mg, intravenous, TWICE | | 18 9:30 | | | | | DAILY, 14 doses, First dose on | | PM PDT | | | | | 09/01/17 at 1800, Last dose on | | | | | | | 09/08/17 at 0900 | | | | | | + +---------+ +--------+---+---+ +---------+ +--------+---+---+ | New Bag | 09/03/19 | 500 mg | | | | | 18 8:54 | | | | | | AM PDT | | | | +---------+ +--------+---+---+ | New Bag | 09/02/19 | 500 mg | | | | | 18 5:52 | | | | | | PM PDT | | | | +---------+ +--------+---+---+ +---+---+ | | | +---+---+ + +---------+ +--------+---+---+ | levETIRAcetam (KEPPRA) IV 500 | New Bag | 09/19/19 | 500 mg | | | | mg 500 mg, intravenous, TWICE | | 18 8:03 | | | | | DAILY, First dose on 09/10/17 | | AM PDT | | | | | at 0900, Until Discontinued | | | | | | + +---------+ +--------+---+---+ +---------+ +--------+---+---+ | New Bag | 09/18/19 | 500 mg | | | | | 18 9:38 | | | | | | PM PDT | | | | +---------+ +--------+---+---+ | New Bag | 09/18/19 | 500 mg | | | | | 18 9:55 | | | | | | AM PDT | | | | +---------+ +--------+---+---+ +---+---+ | | | +---+---+ + +---------+ +--------+---+---+ | levETIRAcetam (KEPPRA) IV 500 | New Bag | 10/03/19 | 500 mg | | | | mg 500 mg, intravenous, TWICE | | 18 10:37 | | | | | DAILY, First dose on Sho 09/19/17 | | AM PDT | | | | | at 2100, Until Discontinued | | | | | | + +---------+ +--------+---+---+ +---------+ +--------+---+---+ | New Bag | 10/02/19 | 500 mg | | | | | 18 9:13 | | | | | | PM PDT | | | | +---------+ +--------+---+---+ | New Bag | 10/02/19 | 500 mg | | | | | 18 8:55 | | | | | | AM PDT | | | | +---------+ +--------+---+---+ +---+---+ | | | +---+---+ + +---------+ +--------+---+---+ | levETIRAcetam (KEPPRA) IV 500 | New Bag | 10/12/19 | 500 mg | | | | mg 500 mg, intravenous, TWICE | | 18 9:00 | | | | | DAILY, First dose on Sat10/10/17 | | AM PDT | | | | | at 2100, Until Discontinued | | | | | | + +---------+ +--------+---+---+ +---------+ +--------+---+---+ | New Bag | 10/11/19 | 500 mg | | | | | 18 8:36 | | | | | | PM PDT | | | | +---------+ +--------+---+---+ +---+---+ | | | +---+---+ + +---------+ +--------+---+---+ | levETIRAcetam (KEPPRA) IV 500 | New Bag | 10/11/19 | 500 mg | | | | mg 500 mg, intravenous, ONCE, 1 | | 18 3:51 | | | | | dose, [facility] 10/10/17 at 1600 | | PM PDT | | | | + +---------+ +--------+---+---+ +---+---+ | | | +---+---+ + +---------+ +--------+---+---+ | levETIRAcetam (KEPPRA) IV 500 | New Bag | 10/29/19 | 500 mg | | | | mg 500 mg, intravenous, TWICE | | 18 10:09 | | | | | DAILY, First dose on 10/12/17 | | AM PDT | | | | | at 1100, Until Discontinued | | | | | | + +---------+ +--------+---+---+ +---------+ +--------+---+---+ | New Bag | 10/28/19 | 500 mg | | | | | 18 8:32 | | | | | | PM PDT | | | | +---------+ +--------+---+---+ | New Bag | 10/27/19 | 500 mg | | | | | 18 9:53 | | | | | | PM PDT | | | | +---------+ +--------+---+---+ +---+---+ | | | +---+---+ + +-------+ +--------+---+---+ | levETIRAcetam (KEPPRA) liquid | Given | 09/19/19 | 500 mg | | | | 500 mg 500 mg, feeding tube, | | 18 9:07 | | | | | TWICE DAILY, First dose on Sat | | PM PDT | | | | | 09/18/17 at 2100, Until | | | | | | | Discontinued | | | | | | + +-------+ +--------+---+---+ +---+---+ | | | +---+---+ + +-------+ +--------+---+---+ | levETIRAcetam (KEPPRA) liquid | Given | 09/20/19 | 500 mg | | | | 500 mg 500 mg, oral, TWICE | | 18 8:44 | | | | | DAILY, First dose (after last | | AM PDT | | | | | modification) on Sat09/19/17 at | | | | | | | 0900, Until Discontinued | | | | | | + +-------+ +--------+---+---+ +---+---+ | | | +---+---+ + +-------+ +--------+---+---+ | levETIRAcetam (KEPPRA) liquid | Given | 10/09/19 | 500 mg | | | | 500 mg 500 mg, oral, TWICE | | 18 10:09 | | | | | DAILY, First dose on Sat10/02/17 | | AM PDT | | | | | at 2100, Until Discontinued | | | | | | + +-------+ +--------+---+---+ +-------+ +--------+---+---+ | Given | 10/08/19 | 500 mg | | | | | 18 9:11 | | | | | | PM PDT | | | | +-------+ +--------+---+---+ | Given | 10/08/19 | 500 mg | | | | | 18 8:09 | | | | | | AM [...] | levETIRAcetam (KEPPRA) tablet | Given | 09/07/19 | 500 mg | | | | 500 mg 500 mg, feeding tube, | | 18 7:52 | | | | | TWICE DAILY, First dose on e | | AM PDT | | | | | 09/03/17 at 1045, Until | | | | | | | Discontinued | | | | | | + +-------+ +--------+---+---+ +-------+ +--------+---+---+ | Given | 09/06/19 | 500 mg | | | | | 18 9:16 | | | | | | PM PDT | | | | +-------+ +--------+---+---+ | Given | 09/06/19 | 500 mg | | | | | 18 8:17 | | | | | | AM PDT | | | | +-------+ +--------+---+---+ +---+---+ | | | +---+---+ + +-------+ +--------+---+---+ | levETIRAcetam (KEPPRA) tablet | Given | 09/10/19 | 500 mg | | | | 500 mg 500 mg, oral, TWICE | | 18 9:21 | | | | | DAILY, First dose (after last | | AM PDT | | | | | modification) on Sat09/06/17 at | | | | | | | 2100, Until Discontinued | | | | | | + +-------+ +--------+---+---+ +-------+ +--------+---+---+ | Given | 09/09/19 | 500 mg | | | | | 18 10:17 | | | | | | PM PDT | | | | +-------+ +--------+---+---+ | Given | 09/09/19 | 500 mg | | | | | 18 8:21 | | | | | | AM PDT | | | | +-------+ +--------+---+---+ +---+---+ | | | +---+---+ + +-------+ +--------+---+---+ | levETIRAcetam (KEPPRA) tablet | Given | 10/12/19 | 500 mg | | | | 500 mg 500 mg, feeding tube, | | 18 9:37 | | | | | TWICE DAILY, First dose on Sat | | PM PDT | | | | | 10/11/17 [...] HOURS, First dose on Sat | | PM [...] +-------+ +-------+---+---+ | lidocaine-EPINEPHrine | Given | 09/26/19 | 50 mL | | | | (XYLOCAINE WITH EPINEPHRINE) 1 | | 18 12:42 | | | | | %-1:100,000 injection 50 mL 50 | | PM PDT | | | | | mL, infiltration, ONCE, 1 dose, | | | | | | | 09/25/17 at 1030 | | | | | | + +-------+ +-------+---+---+ +---+---+ | | | +---+---+ + +-------+ +------+---+---+ | LORazepam (ATIVAN) injection 1 | Given | 10/11/19 | 6 mg | | | | dose, Starting Sho 10/10/17 at | | 18 2:25 | | | | | 0158, Until Sho 10/10/17 at 0225 | | AM PDT | | | | + +-------+ +------+---+---+ +---+---+ | | | +---+---+ + +-------+ +--------+---+---+ | LORazepam (ATIVAN) tablet 0.5 | Given | 09/08/19 | 0.5 mg | | | | mg 0.5 mg, feeding tube, ONCE, 1 | | 18 5:40 | | | | | dose, 09/07/17 at 1745 | | PM PDT | | | | + +-------+ +--------+---+---+ +---+---+ | | | +---+---+ + +-------+ +------+---+---+ | LORazepam (ATIVAN) tablet 0.5-3 | Given | 09/09/19 | 1 mg | | | | mg 0.5-3 mg, oral, NEEDED, | | 18 6:01 | | | | | Starting 09/07/17 at 1739, | | AM PDT | | | | | Until 09/08/17 at 1432, RAFAELWA | | | | | | | protocol | | | | | | + +-------+ +------+---+---+ +-------+ +--------+---+---+ | Given | 09/08/19 | 0.5 mg | | | | | 18 11:50 | | | | | | PM PDT | | | | +-------+ +--------+---+---+ +---+---+ | | | +---+---+ + +---------+ +-----+---+---+ | magnesium sulfate in water IV | New Bag | 09/04/19 | 2 g | | | | (RTU) 2 g 2 g, intravenous, | | 18 5:36 | | | | | ONCE, 1 dose, [facility] 09/03/17 at 0600 | | AM PDT | | | | + +---------+ +-----+---+---+ +---+---+ | | | +---+---+ + +---------+ +-----+---+---+ | magnesium sulfate in water IV | New Bag | 09/05/19 | 2 g | | | | (RTU) 2 g 2 g, intravenous, | | 18 3:39 | | | | | ONCE, 1 dose, [facility] 09/04/17 at 0330 | | AM PDT | | | | + +---------+ +-----+---+---+ +---+---+ | | | +---+---+ + +---------+ +-----+---+---+ | magnesium sulfate in water IV | New Bag | 09/06/19 | 2 g | | | | (RTU) 2 g 2 g, intravenous, | | 18 7:01 | | | | | ONCE, 1 dose, [facility] 09/05/17 at 0615 | | AM PDT | | | | + +---------+ +-----+---+---+ +---+---+ | | | +---+---+ + +---------+ +-----+ +---+ | magnesium sulfate in water IV | New Bag | 09/08/19 | 2 g | 25 mL/hr | | | (RTU) 2 g 2 g, intravenous, | | 18 2:33 | | | | | ONCE, 1 dose, [facility] 09/07/17 at 0230 | | AM PDT | | | | + +---------+ +-----+ +---+ +---+---+ | | | +---+---+ + +---------+ +-----+---+---+ | magnesium sulfate in water IV | New Bag | 09/23/19 | 2 g | | | | (RTU) 2 g 2 g, intravenous, | | 18 10:41 | | | | | ONCE, 1 dose, [place] 09/22/17 at 1000 | | AM PDT | | | | + +---------+ +-----+---+---+ +---+---+ | | | +---+---+ + +---------+ +-----+ +---+ | magnesium sulfate in water IV | New Bag | 09/28/19 | 2 g | 25 mL/hr | | | (RTU) 2 g 2 g, intravenous, | | 18 10:32 | | | | | ONCE, 1 dose, [facility] 09/27/17 at 0815 | | AM PDT | | | | + +---------+ +-----+ +---+ +---+---+ | | | +---+---+ + +---------+ +-----+---+---+ | magnesium sulfate in water IV | New Bag | 10/12/19 | 2 g | | | | (RTU) 2 g 2 g, intravenous, | | 18 2:07 | | | | | ONCE, 1 dose, [facility] 10/11/17 at 0245 | | AM PDT | | | | + +---------+ +-----+---+---+ +---+---+ | | | +---+---+ + +---------+ +-----+---+---+ | magnesium sulfate in water IV | New Bag | 10/15/19 | 2 g | | | | (RTU) 2 g 2 g, intravenous, | | 18 10:50 | | | | | ONCE, 1 dose, [facility] 10/14/17 at 0815 | | AM PDT | | | | + +---------+ +-----+---+---+ +---+---+ | | | +---+---+ + +---------+ +-----+ +---+ | magnesium sulfate in water IV | New Bag | 09/02/19 | 4 g | 25 mL/hr | | | (RTU) 4 g 4 g, intravenous, | | 18 9:44 | | | | | ONCE, 1 dose, [place] 09/01/17 at 0915 | | AM PDT | | | | + +---------+ +-----+ +---+ +---+---+ | | | +---+---+ + +---------+ +-----+---+---+ | magnesium sulfate in water IV | New Bag | 09/03/19 | 4 g | | | | (RTU) 4 g 4 g, intravenous, | | 18 1:14 | | | | | ONCE, 1 dose, 09/02/17 at 0115 | | AM PDT | | | | + +---------+ +-----+---+---+ +---+---+ | | | +---+---+ + +-------+ +------+---+---+ | melatonin tablet 1 mg 1 mg, | Given | 10/12/19 | 1 mg | | | | oral, EVERY EVENING, First dose | | 18 9:37 | | | | | on Sat10/11/17 at 2100, Until | | PM PDT | | | | | Discontinued | | | | | | + +-------+ +------+---+---+ +---+---+ | | | +---+---+ + +-------+ +------+---+---+ | melatonin tablet 1 mg 1 mg, | Given | 10/22/19 | 1 mg | | | | feeding tube, EVERY EVENING, | | 18 9:31 | | | | | First dose (after last | | PM PDT | | | | | modification) on Sat10/12/17 at | | | | | | | 2100, Until Discontinued | | | | | | + +-------+ +------+---+---+ +-------+ +------+---+---+ | Given | 10/21/19 | 1 mg | | | | | 18 9:26 | | | | | | PM PDT | | | | +-------+ +------+---+---+ | Given | 10/20/19 | 1 mg | | | | | 18 9:50 | | | | | | PM [...] 3 mg 3 mg, | Given | 09/24/19 | 3 mg | | | | oral, EVERY EVENING, First dose | | 18 9:43 | | | | | on Sho 09/19/17 at 0000, Until | | PM PDT | | | | | Discontinued | | | | | | + +-------+ +------+---+---+ +-------+ +------+---+---+ | Given | 09/23/19 | 3 mg | | | | | 18 9:10 | | | | | | PM PDT | | | | +-------+ +------+---+---+ | Given | 09/22/19 | 3 mg | | | | | 18 10:38 | | | | | | PM PDT | | | | +-------+ +------+---+---+ +---+---+ | | | +---+---+ + +-------+ +------+---+---+ | melatonin tablet 3 mg 3 mg, | Given | 11/10/19 | 3 mg | | | | oral, EVERY EVENING, First dose | | 18 8:15 | | | | | on 11/09/17 at 2100, Until | | PM PDT | | | | | Discontinued | | | | | | + +-------+ +------+---+---+ +---+---+ | | | +---+---+ + +-------+ +------+---+---+ | melatonin tablet 3 mg 3 mg, | Given | 11/19/19 | 3 mg | | | | feeding tube, EVERY EVENING, | | 18 10:29 | | | | | First dose (after last | | PM PDT | | | | | modification) on 11/10/17 at | | | | | | | 2100, Until Discontinued | | | | | | + +-------+ +------+---+---+ +-------+ +------+---+---+ | Given | 11/18/19 | 3 mg | | | | | 18 9:22 | | | | | | PM PDT | | | | +-------+ +------+---+---+ | Given | 11/17/19 | 3 mg | | | | | 18 10:01 | | | | | | PM PDT | | | | +-------+ +------+---+---+ +---+---+ | | | +---+---+ + +-------+ +------+---+---+ | melatonin tablet 6 mg 6 mg, | Given | 11/27/19 | 6 mg | | | | feeding tube, EVERY EVENING, | | 18 8:10 | | | | | First dose (after last | | PM PDT | | | | | modification) on Sat11/19/17 at | | | | | | | 2100, Until Discontinued | | | | | | + +-------+ +------+---+---+ +-------+ +------+---+---+ | Given | 11/26/19 | 6 mg | | | | | 18 8:04 | | | | | | PM PDT | | | | +-------+ +------+---+---+ | Given | 11/25/19 | 6 mg | | | | | 18 8:39 | | | | | | PM [...] | midazolam (PF) (VERSED) | Given | 09/02/19 | 2 mg | | | | injection 5 mg 5 mg, | | 18 4:57 | | | | | intravenous, ONCE, 1 dose, Sun | | AM PDT | | [...] multivitamin (THERA VITAMIN) 1 | Given | 09/04/19 | 1 tablet | | | | tablet 1 tablet, oral, DAILY, 3 | | 18 11:32 | | | | | doses, First dose on 09/01/17 | | AM PDT | | | | | at 2030, Last dose on 09/03/17 | | | | | | | at 0900 | | | | | | + +-------+ + +---+---+ +-------+ + +---+---+ | Given | 09/03/19 | 1 tablet | | | | | 18 8:54 | | | | | | AM PDT | | | | +-------+ + +---+---+ | Given | 09/02/19 | 1 tablet | | | | | 18 10:37 | | | | | | PM PDT | | | | +-------+ + +---+---+ +---+---+ | | | +---+---+ + +-------+ + +---+---+ | multivitamin (THERA VITAMIN) 1 | Given | 09/10/19 | 1 tablet | | | | tablet 1 tablet, oral, DAILY, 3 | | 18 9:21 | | | | | doses, First dose on 09/07/17 | | AM PDT | | | | | at 1930, Last dose on 09/09/17 | | | | | | | at 0900 | | | | | | + +-------+ + +---+---+ +-------+ + +---+---+ | Given | 09/09/19 | 1 tablet | | | | | 18 8:21 | | | | | | AM PDT | | | | +-------+ + +---+---+ | Given | 09/08/19 | 1 tablet | | | | | 18 6:30 | | | | | | PM [...] | | | 09/01/17 at 1103, Until [place] 09/01/17 | | | | | | [...] | OLANZapine (ZYPREXA) injection | Given | 09/13/19 | 10 mg | | Right | | 10 mg 10 mg, intramuscular, | | 18 12:26 | | | [place] | | ONCE, 1 dose, [place] 09/12/17 at 1130 | | PM PDT | | | uteal | + +-------+ +-------+---+ + +---+---+ | | | +---+---+ + +-------+ +-------+---+ + | OLANZapine (ZYPREXA) injection | Given | 09/20/19 | 10 mg | | Right | | 10 mg 10 mg, intramuscular, | | 18 10:26 | | | [place] | | EVERY EVENING, First dose on Sat | | PM PDT | | | uteal | | 09/19/17 at 2100, Until | | | | | | | Discontinued | | | | | | + +-------+ +-------+---+ + +---+---+ | | | +---+---+ + +-------+ +-------+---+---+ | OLANZapine (ZYPREXA) suspension | Given | 09/06/19 | 10 mg | | | | 10 mg 10 mg, feeding tube, | | 18 9:16 | | | | | DAILY, First dose on Sat09/04/17 | | PM PDT | | | | | at 1345, Until Discontinued | | | | | | + +-------+ +-------+---+---+ +-------+ +-------+---+---+ | Given | 09/05/19 | 10 mg | | | | | 18 3:02 | | | | | | PM PDT | | | | +-------+ +-------+---+---+ +---+---+ | | | +---+---+ + +-------+ +-------+---+---+ | OLANZapine (ZYPREXA) suspension | Given | 09/14/19 | 10 mg | | | | 10 mg 10 mg, oral, DAILY, First | | 18 8:20 | | | | | dose (after last modification) | | PM PDT | | | | | on Sat09/06/17 at 2100, Until | | | | | | | Discontinued | | | | | | + +-------+ +-------+---+---+ +-------+ +-------+---+---+ | Given | 09/09/19 | 10 mg | | | | | 18 10:39 | | | | | | PM PDT | | | | +-------+ +-------+---+---+ | Given | 09/08/19 | 10 mg | | | | | 18 10:16 | | | | | | PM PDT | | | | +-------+ +-------+---+---+ +---+---+ | | | +---+---+ + +-------+ +-------+---+---+ | OLANZapine (ZYPREXA) suspension | Given | 09/19/19 | 10 mg | | | | 10 mg 10 mg, feeding tube, | | 18 9:11 | | | | | DAILY, First dose (after last | | PM PDT | | | | | modification) on 09/14/17 at | | | | | | | 2100, Until Discontinued | | | | | | + +-------+ +-------+---+---+ +-------+ +-------+---+---+ | Given | 09/18/19 | 10 mg | | | | | 18 9:38 | | | | | | PM PDT | | | | +-------+ +-------+---+---+ | Given | 09/17/19 | 10 mg | | | | | 18 10:20 | | | | | | PM PDT | | | | +-------+ +-------+---+---+ +---+---+ | | | +---+---+ + +-------+ +-------+---+---+ | OLANZapine (ZYPREXA) tablet 10 | Given | 09/25/19 | 10 mg | | | | mg 10 mg, oral, TWICE DAILY, | | 18 11:03 | | | | | First dose on Sat09/20/17 at | | AM PDT | | | | | 2100, Until Discontinued | | | | | | + +-------+ +-------+---+---+ +-------+ +-------+---+---+ | Given | 09/24/19 | 10 mg | | | | | 18 9:43 | | | | | | PM PDT | | | | +-------+ +-------+---+---+ | Given | 05/28/20 | 10 mg | | | | | 18 11:11 | | | | | | AM PDT | | | | +-------+ +-------+---+---+ +---+---+ | | | +---+---+ + +-------+ +------+---+---+ | OLANZapine (ZYPREXA) tablet 5 | Given | 09/22/19 | 5 mg | | | | mg 5 mg, oral, EVERY 4 HOURS | | 18 10:39 | | | | | NEEDED, Starting 09/20/17 at | | PM PDT | | | | | 1500, Until 09/22/17 at 0923, | | | | | | | aggression, non-redirectable | | | | | | | combativeness | | | | | | + +-------+ +------+---+---+ +-------+ +------+---+---+ | Given | 09/22/19 | 5 mg | | | | | 18 11:27 | | | | | | AM PDT | | | | +-------+ +------+---+---+ | Given | 09/22/19 | 5 mg | | | | | 18 12:28 | | | | | | AM PDT | | | | +-------+ +------+---+---+ +---+---+ | | | +---+---+ + +-------+ +------+---+---+ | OLANZapine (ZYPREXA) tablet 5 | Given | 09/25/19 | 5 mg | | | | mg 5 mg, oral, EVERY 4 HOURS | | 18 2:44 | | | | | NEEDED, Starting 09/22/17 at | | AM PDT | | | | | 0921, Until 09/24/17 at 1214, | | | | | | | agitation | | | | | | + +-------+ +------+---+---+ +-------+ +------+---+---+ | Given | 09/24/19 | 5 mg | | | | | 18 3:57 | | | | | | PM PDT | | | | +-------+ +------+---+---+ | Given | 09/23/19 | 5 mg | | | | | 18 4:46 | | | | | | PM [...] ondansetron (ZOFRAN) tablet 4 | Given | 10/21/19 | 4 mg | | | | mg 4 mg, feeding tube, EVERY 12 | | 18 8:57 | | | | | HOURS NEEDED, Starting Fri | | AM PDT | | | | | 10/04/17 at 1107, Until Tu10/22/17 | | | | | | | at 1612, nausea/vomiting, first | | | | | | | line | | | | | | + +-------+ +------+---+---+ +-------+ +------+---+---+ | Given | 10/20/19 | 4 mg | | | | | 18 1:08 | | | | | | AM PDT | | | | +-------+ +------+---+---+ | Given | 10/06/19 | 4 mg | | | | | 18 5:02 | | | | | | PM [...] ondansetron (ZOFRAN) tablet 8 | Given | 09/22/19 | 8 mg | | | | mg 8 mg, oral, EVERY 12 HOURS | | 18 10:40 | | | | | NEEDED, Starting 08/31/17 at | | AM PDT | | | | | 1849, Until Sat09/24/17 at 1430, | | | | | | | nausea/vomiting, first line | | | | | | + +-------+ +------+---+---+ +-------+ +------+---+---+ | Given | 09/17/19 | 8 mg | | | | | 18 4:15 | | | | | | PM PDT | | | | +-------+ +------+---+---+ +---+---+ | | | +---+---+ + +-------+ +------+---+---+ | ondansetron ODT (ZOFRAN ODT) | Given | 11/06/19 | 4 mg | | | | tablet 4 mg 4 mg, oral, ONCE, 1 | | 18 8:59 | | | | | doseLeann 11/05/17 at 1945 | | PM PDT | | | | + +-------+ +------+---+---+ +---+---+ | | | +---+---+ + +-------+ +------+---+---+ | oxyCODONE (immediate release) | Given | 10/12/19 | 5 mg | | | | (ROXICODONE) liquid 5 mg 5 mg, | | 18 1:00 | | | | | oral, EVERY 4 HOURS NEEDED, | | PM PDT | | | | | Starting 10/04/17 at 0347, | | | | | | | Until 10/12/17 at 0838, | | | | | | | headache | | | | | | + +-------+ +------+---+---+ +-------+ +------+---+---+ | Given | 10/12/19 | 5 mg | | | | | 18 3:15 | | | | | | AM PDT | | | | +-------+ +------+---+---+ | Given | 10/11/19 | 5 mg | | | | | 18 10:53 | | | | | | PM PDT | | | | +-------+ +------+---+---+ +---+---+ | | | +---+---+ + +-------+ +------+---+---+ | oxyCODONE (immediate release) | Given | 10/21/19 | 5 mg | | | | (ROXICODONE) liquid 5 mg 5 mg, | | 18 4:56 | | | | | feeding tube, EVERY 4 HOURS | | PM PDT | | | | | NEEDED, Starting 10/12/17 at | | | | | | | 0838, Until 10/22/17 at 1612, | | | | | | | headache | | | | | | + +-------+ +------+---+---+ +-------+ +------+---+---+ | Given | 10/20/19 | 5 mg | | | | | 18 7:30 | | | | | | PM PDT | | | | +-------+ +------+---+---+ | Given | 10/20/19 | 5 mg | | | | | 18 8:52 | | | | | | AM PDT | | | | +-------+ +------+---+---+ +---+---+ | | | +---+---+ + +-------+ +------+---+---+ | oxyCODONE (immediate release) | Given | 10/30/19 | 5 mg | | | | (ROXICODONE) liquid 5 mg 5 mg, | | 18 12:09 | | | | | feeding tube, EVERY 4 HOURS | | PM PDT | | | | | NEEDED, Starting 10/29/17 at | | | | | | | 0844, Until e 10/29/17 at 1217, | | | | | | | moderate pain | | | | | | + +-------+ +------+---+---+ +-------+ +------+---+---+ | Given | 10/30/19 | 5 mg | | | | | 18 9:05 | | | | | | AM [...] | | +-------+ +------+---+---+ | Given | 08/10/20 | 5 mg | | | | | 18 3:32 | | | | | | AM PDT | | | | +-------+ +------+---+---+ +---+---+ | | | +---+---+ + +-------+ +-------+---+---+ | oxyCODONE (immediate release) | Given | 09/05/19 | 15 mg | | | | (ROXICODONE) liquid 5-15 mg 5-15 | | 18 11:36 | | | | | mg, feeding tube, EVERY 3 HOURS | | AM PDT | | | | | NEEDED, Starting 08/31/17 at | | | | | | | 1848, Until 09/04/17 at 1701, | | | | | | | moderate pain | | | | | | + +-------+ +-------+---+---+ +-------+ +-------+---+---+ | Given | 09/05/19 | 10 mg | | | | | 18 8:20 | | | | | | AM PDT | | | | +-------+ +-------+---+---+ | Given | 09/05/19 | 5 mg | | | | | 18 1:18 | | | | | | AM PDT | | | | +-------+ +-------+---+---+ +---+---+ | | | +---+---+ + +-------+ +------+---+---+ | oxyCODONE (immediate release) | Given | 11/18/19 | 5 mg | | | | (ROXICODONE) tablet 5 mg 5 mg, | | 18 12:31 | | | | | oral, ONCE, 1 dose, 11/17/17 | | AM PDT | | | | | at 0100 | | | | | | + +-------+ +------+---+---+ +---+---+ | | | +---+---+ + + + +---+ +---+ | parenteral nutrition (adult) | Rate/Dos | 09/17/19 | | 75 mL/hr | | | at 75 mL/hr, intravenous, TPN | e Verify | 18 8:37 | | | | | 2100, Starting 09/15/17 at | | PM PDT | | | | | 2100, Until 09/16/17 at 9 | | | | | | + + + +---+ +---+ + + +---+ +---+ | Restarted | 09/17/19 | | 75 mL/hr | | | | 18 2:57 | | | | | | PM PDT | | | | + + +---+ +---+ | Rate/Dose Verify | 09/17/19 | | 75 mL/hr | | | | 18 7:43 | | | | | | AM PDT | | | | + + +---+ +---+ +---+---+ | | | +---+---+ + + + +---+ +---+ | parenteral nutrition (adult) | Restarte | 09/18/19 | | 75 mL/hr | | | at 75 mL/hr, intravenous, TPN | d | 18 6:30 | | | | | 2100, Starting 09/16/17 at | | AM PDT | | | | | 2100, Until Sat09/17/17 at 2058 | | | | | | + + + +---+ +---+ + + +---+ +---+ | Rate/Dose Verify | 09/18/19 | | 75 mL/hr | | | | 18 1:39 | | | | | | AM PDT | | | | + + +---+ +---+ | New Bag | 09/17/19 | | 75 mL/hr | | | | 18 9:06 | | | | | | PM PDT | | | | + + +---+ +---+ +---+---+ | | | +---+---+ + + + +---+ +---+ | parenteral nutrition (adult) | Rate/Dos | 09/19/19 | | 60 mL/hr | | | at 60 mL/hr, intravenous, TPN | e Verify | 18 6:04 | | | | | 2100, Starting Sat09/17/17 at | | PM PDT | | | | | 2100, Until Sat09/18/17 at 2059 | | | | | | + + + +---+ +---+ + + +---+ +---+ | Rate/Dose Verify | 09/19/19 | | 60 mL/hr | | | | 18 6:58 | | | | | | AM PDT | | | | + + +---+ +---+ | Rate/Dose Verify | 09/19/19 | | 60 mL/hr | | | | 18 2:22 | | | | | | AM PDT | | | | + + +---+ +---+ +---+---+ | | | +---+---+ + + + +---+ +---+ | parenteral nutrition (adult) | Rate/Dos | 09/20/19 | | 60 mL/hr | | | at 60 mL/hr, intravenous, TPN | e Verify | 18 2:16 | | | | | 2100, Starting 09/18/17 at | | AM PDT | | | | | 2100, Until Sho 09/19/17 at 9 | | | | | | + + + +---+ +---+ +---------+ +---+ +---+ | New Bag | 09/19/19 | | 60 mL/hr | | | | 18 9:06 | | | | | | PM PDT | | | | +---------+ +---+ +---+ +---+---+ | | | +---+---+ + + + +---+-------+---+ | parenteral nutrition (adult) | Rate/Dos | 09/21/19 | | 110 | | | at 60-110 mL/hr, intravenous, TPN | e Verify | 18 2:40 | | mL/hr | | | 2100, Starting Sat09/19/17 at | | AM PDT | | | | | 2100, Until Sat09/20/17 at 2058 | | | | | | + + + +---+-------+---+ + + +---+ +---+ | Rate/Dose Change | 09/20/19 | | 110 | | | | 18 10:00 | | mL/hr | | | | PM PDT | | | | + + +---+ +---+ | New Bag | 09/20/19 | | 60 mL/hr | | | | 18 8:52 | | | | | | PM PDT | | | | + + +---+ +---+ +---+---+ | | | +---+---+ + + + +---+ +---+ | parenteral nutrition (adult) | Rate/Dos | 09/22/19 | | 60 mL/hr | | | at 60-110 mL/hr, intravenous, TPN | e Change | 18 10:59 | | | | | 2100, Starting 09/20/17 at | | AM PDT | | | | | 2100, Until 09/21/17 at 9 | | | | | | + + + +---+ +---+ + + +---+-------+---+ | Rate/Dose Verify | 09/22/19 | | 110 | | | | 18 8:46 | | mL/hr | | | | AM PDT | | | | + + +---+-------+---+ | Rate/Dose Verify | 09/22/19 | | 110 | | | | 18 4:45 | | mL/hr | | | | AM PDT | | | | + + +---+-------+---+ +---+---+ | | | +---+---+ + + + +---+ +---+ | parenteral nutrition (adult) | Rate/Dos | 09/23/19 | | 60 mL/hr | | | at 60-110 mL/hr, intravenous, TPN | e Change | 18 12:08 | | | | | 2100, Starting 09/21/17 at | | PM PDT | | | | | 2100, Until 09/22/17 at 2059 | | | | | | + + + +---+ +---+ + + +---+-------+---+ | Rate/Dose Verify | 09/23/19 | | 110 | | | | 18 11:29 | | mL/hr | | | | AM PDT | | | | + + +---+-------+---+ | Rate/Dose Verify | 09/23/19 | | 110 | | | | 18 7:42 | | mL/hr | | | | AM PDT | | | | + + +---+-------+---+ +---+---+ | | | +---+---+ + + + +---+ +---+ | parenteral nutrition (adult) | Rate/Dos | 09/24/19 | | 60 mL/hr | | | at 60-110 mL/hr, intravenous, TPN | e Change | 18 10:25 | | | | | 2100, Starting 09/22/17 at | | AM PDT | | | | | 2100, Until Sat09/23/17 at 2059 | | | | | | + + + +---+ +---+ +---------+ +---+-------+---+ | New Bag | 09/23/19 | | 110 | | | | 18 9:24 | | mL/hr | | | | PM PDT | | | | +---------+ +---+-------+---+ +---+---+ | | | +---+---+ + + + +---+-------+---+ | parenteral nutrition (adult) | Rate/Dos | 09/24/19 | | 110 | | | at 60-110 mL/hr, intravenous, TPN | e Change | 18 10:06 | | mL/hr | | | 2100, Starting Sat09/23/17 at | | PM PDT | | | | | 2100, Until Sat09/24/17 at 2058 | | | | | | + + + +---+-------+---+ +---------+ +---+ +---+ | New Bag | 09/24/19 | | 60 mL/hr | | | | 18 9:05 | | | | | | PM PDT | | | | +---------+ +---+ +---+ +---+---+ | | | +---+---+ + + + +---+ +---+ | parenteral nutrition (adult) | Rate/Dos | 09/26/19 | | 60 mL/hr | | | at 60-110 mL/hr, intravenous, TPN | e Change | 18 1:44 | | | | | 2100, Starting Sat09/24/17 at | | PM PDT | | | | | 2100, Until Sat09/25/17 at 2058 | | | | | | + + + +---+ +---+ + + +---+-------+---+ | Restarted | 09/26/19 | | 110 | | | | 18 7:58 | | mL/hr | | | | AM PDT | | | | + + +---+-------+---+ | Rate/Dose Change | 09/25/19 | | 110 | | | | 18 10:50 | | mL/hr | | | | PM PDT | | | | + + +---+-------+---+ +---+---+ | | | +---+---+ + +---------+ +---+ +---+ | parenteral nutrition (adult) | New Bag | 09/26/19 | | 60 mL/hr | | | at 60-110 mL/hr, intravenous, TPN | | 18 9:19 | | | | | 2100, Starting 09/25/17 at | | PM PDT | | | | | 2100, Until Sho 09/26/17 at 2059 | | | | | | + +---------+ +---+ +---+ +---+---+ | | | +---+---+ + + + +---+-------+---+ | parenteral nutrition (adult) | Rate/Dos | 09/27/19 | | 110 | | | at 60-110 mL/hr, intravenous, TPN | e Change | 18 10:39 | | mL/hr | | | 2100, Starting Sat09/26/17 at | | PM PDT | | | | | 2100, Until Sat09/27/17 at 2059 | | | | | | + + + +---+-------+---+ +---------+ +---+ +---+ | New Bag | 09/27/19 | | 60 mL/hr | | | | 18 9:32 | | | | | | PM PDT | | | | +---------+ +---+ +---+ +---+---+ | | | +---+---+ + + + +---+ +---+ | parenteral nutrition (adult) | Rate/Dos | 09/29/19 | | 60 mL/hr | | | at 60-110 mL/hr, intravenous, TPN | e Change | 18 10:50 | | | | | 2100, Starting Sat09/27/17 at | | AM PDT | | | | | 2100, Until 09/28/17 at 2059 | | | | | | + + + +---+ +---+ + + +---+-------+---+ | Rate/Dose Verify | 09/29/19 | | 110 | | | | 18 2:31 | | mL/hr | | | | AM PDT | | | | + + +---+-------+---+ | Rate/Dose Change | 09/28/19 | | 110 | | | | 18 11:34 | | mL/hr | | | | PM PDT | | | | + + +---+-------+---+ +---+---+ | | | +---+---+ + + + +---+ +---+ | parenteral nutrition (adult) | Rate/Dos | 09/30/19 | | 60 mL/hr | | | at 60-110 mL/hr, intravenous, TPN | e Change | 18 10:07 | | | | | 2100, Starting 09/28/17 at | | AM PDT | | | | | 2100, Until 09/29/17 at 2059 | | | | | | + + + +---+ +---+ + + +---+-------+---+ | Rate/Dose Verify | 09/30/19 | | 110 | | | | 18 3:30 | | mL/hr | | | | AM PDT | | | | + + +---+-------+---+ | Rate/Dose Change | 09/29/19 | | 110 | | | | 18 10:50 | | mL/hr | | | | PM PDT | | | | + + +---+-------+---+ +---+---+ | | | +---+---+ + + + +---+-------+---+ | parenteral nutrition (adult) | Rate/Dos | 10/01/19 | | 110 | | | at 60-110 mL/hr, intravenous, TPN | e Verify | 18 7:56 | | mL/hr | | | 2100, Starting 09/29/17 at | | AM PDT | | | | | 2100, Until Sat09/30/17 at 2058 | | | | | | + + + +---+-------+---+ + + +---+-------+---+ | Rate/Dose Verify | 10/01/19 | | 110 | | | | 18 2:00 | | mL/hr | | | | AM PDT | | | | + + +---+-------+---+ | Rate/Dose Change | 09/30/19 | | 110 | | | | 18 10:17 | | mL/hr | | | | PM PDT | | | | + + +---+-------+---+ +---+---+ | | | +---+---+ + + + +---+-------+---+ | parenteral nutrition (adult) | Rate/Dos | 10/02/19 | | 110 | | | at 60-110 mL/hr, intravenous, TPN | e Verify | 18 6:25 | | mL/hr | | | 2100, Starting 09/30/17 at | | AM PDT | | | | | 2100, Until Sat10/01/17 at 2058 | | | | | | + + + +---+-------+---+ + + +---+-------+---+ | Rate/Dose Verify | 10/02/19 | | 110 | | | | 18 2:18 | | mL/hr | | | | AM PDT | | | | + + +---+-------+---+ | Rate/Dose Change | 10/01/19 | | 110 | | | | 18 10:41 | | mL/hr | | | | PM PDT | | | | + + +---+-------+---+ +---+---+ | | | +---+---+ + + + +---+ +---+ | parenteral nutrition (adult) | Rate/Dos | 10/03/19 | | 60 mL/hr | | | at 60-110 mL/hr, intravenous, TPN | e Change | 18 10:25 | | | | | 2100, Starting Tu10/01/17 at | | AM PDT | | | | | 2100, Until Sat10/02/17 at 9 | | | | | | + + + +---+ +---+ + + +---+-------+---+ | Rate/Dose Verify | 10/03/19 | | 110 | | | | 18 2:44 | | mL/hr | | | | AM PDT | | | | + + +---+-------+---+ | Rate/Dose Change | 10/02/19 | | 110 | | | | 18 10:22 | | mL/hr | | | | PM PDT | | | | + + +---+-------+---+ +---+---+ | | | +---+---+ + + + +---+ +---+ | parenteral nutrition (adult) | Rate/Dos | 10/27/19 | | 60 mL/hr | | | at 35-60 mL/hr, intravenous, TPN | e Verify | 18 8:01 | | | | | 2100, Starting 10/25/17 at | | AM PDT | | | | | 2100, Until 10/26/17 at 2058 | | | | | | + + + +---+ +---+ + + +---+ +---+ | Rate/Dose Change | 10/27/19 | | 60 mL/hr | | | | 18 5:20 | | | | | | AM PDT | | | | + + +---+ +---+ | Rate/Dose Change | 10/27/19 | | 50 mL/hr | | | | 18 1:12 | | | | | | AM PDT | | | | + + +---+ +---+ +---+---+ | | | +---+---+ + + + +---+ +---+ | parenteral nutrition (adult) | Restarte | 10/28/19 | | 60 mL/hr | | | at 60 mL/hr, intravenous, TPN | d | 18 1:45 | | | | | 2100, Starting 10/26/17 at | | PM PDT | | | | | 2100, Until 10/27/17 at 9 | | | | | | + + + +---+ +---+ +---------+ +---+ +---+ | New Bag | 10/27/19 | | 60 mL/hr | | | | 18 9:52 | | | | | | PM PDT | | | | +---------+ +---+ +---+ +---+---+ | | | +---+---+ + + + +---+ +---+ | parenteral nutrition (adult) | Rate/Dos | 10/29/19 | | 60 mL/hr | | | at 60 mL/hr, intravenous, TPN | e Verify | 18 3:45 | | | | | 2100, Starting 10/27/17 at | | AM PDT | | | | | 2100, Until Sat10/28/17 at 2059 | | | | | | + + + +---+ +---+ +---------+ +---+ +---+ | New Bag | 10/28/19 | | 60 mL/hr | | | | 18 9:42 | | | | | | PM PDT | | | | +---------+ +---+ +---+ +---+---+ | | | +---+---+ + + + +---+ +---+ | parenteral nutrition (adult) | Rate/Dos | 10/30/19 | | 60 mL/hr | | | at 60 mL/hr, intravenous, TPN | e Verify | 18 1:51 | | | | | 2100, Starting Sat10/28/17 at | | PM PDT | | | | | 2100, Until Sat10/29/17 at 1518 | | | | | | + + + +---+ +---+ + + +---+ +---+ | Rate/Dose Verify | 10/30/19 | | 60 mL/hr | | | | 18 8:11 | | | | | | AM PDT | | | | + + +---+ +---+ | New Bag | 10/29/19 | | 60 mL/hr | | | | 18 8:55 | | | | | | PM PDT | | | | + + +---+ +---+ +---+---+ | | | +---+---+ + +---------+ +---------+---+---+ | piperacillin-tazobactam (ZOSYN) | New Bag | 09/07/19 | 3.375 g | | | | IV (minibag+) 3.375 g 3.375 g, | | 18 3:49 | | | | | intravenous, EVERY 8 HOURS, 21 | | AM PDT | | | | | doses, First dose on Sat09/04/17 | | | | | | | at 1900, Last dose on Sat09/11/17 | | | | | | | at 1100 | | | | | | + +---------+ +---------+---+---+ +---------+ +---------+---+---+ | New Bag | 09/06/19 | 3.375 g | | | | | 18 8:04 | | | | | | PM PDT | | | | +---------+ +---------+---+---+ | New Bag | 09/06/19 | 3.375 g | | | | | 18 11:49 | | | | | | AM PDT | | | | +---------+ +---------+---+---+ +---+---+ | | | +---+---+ + +---------+ +-------+---+---+ | piperacillin-tazobactam (ZOSYN) | New Bag | 09/05/19 | 4.5 g | | | | IV 4.5 g 4.5 g, intravenous, | | 18 1:14 | | | | | ONCE, 1 dose, 09/04/17 at 1300 | | PM PDT | | | | + +---------+ +-------+---+---+ +---+---+ | | | +---+---+ + +-------+ +------+---+---+ | polyethylene glycol (MIRALAX) | Given | 09/03/19 | 17 g | | | | packet 17 g 17 g, oral, EVERY | | 18 9:23 | | | | | EVENING, First dose on 08/31/17 | | PM PDT | | | | | at 2100, Until Discontinued | | | | | | + +-------+ +------+---+---+ +---+---+ | | | +---+---+ + +-------+ +------+---+---+ | polyethylene glycol (MIRALAX) | Given | 09/16/19 | 17 g | | | | packet 17 g 17 g, feeding tube, | | 18 8:44 | | | | | DAILY, First dose on Sat09/04/17 | | AM PDT | | | | | at 0900, Until Discontinued | | | | | | + +-------+ +------+---+---+ +-------+ +------+---+---+ | Given | 09/15/19 | 17 g | | | | | 18 8:04 | | | | | | AM PDT | | | | +-------+ +------+---+---+ | Given | 09/14/19 | 17 g | | | | | 18 11:30 | | | | | | AM PDT | | | | +-------+ +------+---+---+ +---+---+ | | | +---+---+ + +-------+ +------+---+---+ | polyethylene glycol (MIRALAX) | Given | 10/08/19 | 17 g | | | | packet 17 g 17 g, oral, DAILY | | 18 6:34 | | | | | NEEDED, Starting 10/06/17 at | | AM PDT | | | | | 1004, Until 10/12/17 at 0838, | | | | | | | constipation, 1st line | | | | | | + +-------+ +------+---+---+ +-------+ +------+---+---+ | Given | 10/07/19 | 17 g | | | | | 18 4:05 | | | | | | PM PDT | | | | +-------+ +------+---+---+ +---+---+ | | | +---+---+ + +-------+ +------+---+---+ | polyethylene glycol (MIRALAX) | Given | 10/14/19 | 17 g | | | | packet 17 g 17 g, oral, EVERY | | 18 9:18 | | | | | EVENING, First dose on Sat | | PM PDT | | | | | 10/12/17 at 2115, Until | | | | | | | Discontinued | | | | | | + +-------+ +------+---+---+ +---+---+ | | | +---+---+ + +-------+ +------+---+---+ | polyethylene glycol (MIRALAX) | Given | 11/03/19 | 17 g | | | | packet 34 g 34 g, oral, THREE | | 18 5:46 | | | | | TIMES DAILY NEEDED, Starting | | PM PDT | | | | | 11/02/17 at 1144, Until Sun | | | | | | | 11/10/17 at 1005, 1st line - for | | | | | | | no BM for 2 days | | | | | | + +-------+ +------+---+---+ +-------+ +------+---+---+ | Given | 11/03/19 | 17 g | | | | | 18 2:00 | | | | | | PM PDT | | | | +-------+ +------+---+---+ | Given | 11/03/19 | 17 g | | | | | 18 12:20 [...] | potassium chloride (KAOCHLOR) | Given | 10/18/19 | 20 mEq | | | | liquid 10% 20 mEq 20 mEq, | | 18 10:34 | | | | | feeding tube, ONCE, 1 dose, [facility] | | AM PDT | | | | | 6/21/18 at 0845 | | | | | | + +-------+ +--------+---+---+ +---+---+ | | | +---+---+ + +-------+ +--------+---+---+ | potassium chloride (KLOR-CON) | Given | 09/05/19 | 20 mEq | | | | packet 20 mEq 20 mEq, feeding | | 18 9:34 | | | | | tube, ONCE, 1 dose, 09/04/17 at | | PM PDT | | | | | 2200 | | | | | | + +-------+ +--------+---+---+ +---+---+ | | | +---+---+ + +-------+ +--------+---+---+ | potassium chloride (KLOR-CON) | Given | 09/09/19 | 20 mEq | | | | packet 20 mEq 20 mEq, feeding | | 18 3:36 | | | | | tube, EVERY 4 HOURS, 2 doses, | | PM PDT | | | | | First dose on 09/08/17 at | | | | | | | 1230, Last dose on 09/08/17 at | | | | | | | 1630 | | | | | | + +-------+ +--------+---+---+ +-------+ +--------+---+---+ | Given | 09/09/19 | 20 mEq | | | | | 18 12:43 | | | | | | PM PDT | | | | +-------+ +--------+---+---+ +---+---+ | | | +---+---+ + +-------+ +--------+---+---+ | potassium chloride (KLOR-CON) | Given | 10/08/19 | 20 mEq | | | | packet 20 mEq 20 mEq, oral, | | 18 8:09 | | | | | ONCE, 1 dose, 10/07/17 at 0715 | | AM PDT | | | | + +-------+ +--------+---+---+ +---+---+ | | | +---+---+ + +-------+ +--------+---+---+ | potassium chloride (KLOR-CON) | Given | 10/15/19 | 20 mEq | | | | packet 20 mEq 20 mEq, oral, | | 18 7:48 | | | | | ONCE, 1 dose, 10/14/17 at 0745 | | AM PDT | | | | + +-------+ +--------+---+---+ +---+---+ | | | +---+---+ + +-------+ +--------+---+---+ | potassium chloride (KLOR-CON) | Given | 09/05/19 | 40 mEq | | | | packet 40 mEq 40 mEq, feeding | | 18 5:46 | | | | | tube, ONCE, 1 dose, [facility] 09/04/17 at | | PM PDT | | | | | 1815 | | | | | | + +-------+ +--------+---+---+ +---+---+ | | | +---+---+ + +-------+ +--------+---+---+ | potassium chloride (KLOR-CON) | Given | 10/11/19 | 40 mEq | | | | packet 40 mEq 40 mEq, feeding | | 18 4:35 | | | | | tube, ONCE, 1 dose, [facility] 10/10/17 | | AM PDT | | | | | at 0400 | | | | | | + +-------+ +--------+---+---+ +---+---+ | | | +---+---+ + +-------+ +--------+---+---+ | potassium chloride (KLOR-CON) | Given | 10/12/19 | 40 mEq | | | | packet 40 mEq 40 mEq, feeding | | 18 2:07 | | | | | tube, ONCE, 1 dose, [facility] 10/11/17 | | AM PDT | | | | | at 0245 | | | | | | + +-------+ +--------+---+---+ +---+---+ | | | +---+---+ + +-------+ +--------+---+---+ | potassium chloride (KLOR-CON) | Given | 10/14/19 | 40 mEq | | | | packet 40 mEq 40 mEq, feeding | | 18 1:18 | | | | | tube, ONCE, 1 dose, [place] 10/13/17 | | PM PDT | | | | | at 1315 | | | | | | + +-------+ +--------+---+---+ +---+---+ | | | +---+---+ + +-------+ +--------+---+---+ | potassium chloride (KLOR-CON) | Given | 10/19/19 | 40 mEq | | | | packet 40 mEq 40 mEq, feeding | | 18 4:24 | | | | | tube, ONCE, 1 dose, [facility] 10/18/17 | | PM PDT | | | | | at 1630 | | | | | | + +-------+ +--------+---+---+ +---+---+ | | | +---+---+ + +---------+ +--------+-------+---+ | potassium chloride 20 mEq / 260 | New Bag | 09/01/19 | 20 mEq | 130 | | | mL NS IV PERIPHERAL 20 mEq, | | 18 8:51 | | mL/hr | | | intravenous, ONCE, 1 dose, Sat | | PM PDT | | | | | 08/31/17 at 2045 | | | | | | + +---------+ +--------+-------+---+ +---+---+ | | | +---+---+ + +---------+ +--------+-------+---+ | potassium chloride 20 mEq / 260 | New Bag | 09/07/19 | 20 mEq | 130 | | | mL NS IV PERIPHERAL 20 mEq, | | 18 7:55 | | mL/hr | | | intravenous, EVERY 2 HOURS, 2 | | AM PDT | | | | | doses, First dose on Sat09/06/17 | | | | | | | at 0600, Last dose on Sat09/06/17 | | | | | | | at 0800 | | | | | | + +---------+ +--------+-------+---+ +---------+ +--------+-------+---+ | New Bag | 09/07/19 | 20 mEq | 130 | | | | 18 5:22 | | mL/hr | | | | AM PDT | | | | +---------+ +--------+-------+---+ +---+---+ | | | +---+---+ + +---------+ +--------+-------+---+ | potassium chloride 20 mEq / 260 | New Bag | 09/13/19 | 20 mEq | 130 | | | mL NS IV PERIPHERAL 20 mEq, | | 18 8:00 | | mL/hr | | | intravenous, EVERY 2 HOURS, 2 | | AM PDT | | | | | doses, First dose on Sat09/12/17 | | | | | | | at 0815, Last dose on Sat09/12/17 | | | | | | | at 1015 | | | | | | + +---------+ +--------+-------+---+ +---+---+ | | | +---+---+ + +---------+ +--------+-------+---+ | potassium chloride 20 mEq / 260 | New Bag | 09/14/19 | 20 mEq | 130 | | | mL NS IV PERIPHERAL 20 mEq, | | 18 2:18 | | mL/hr | | | intravenous, EVERY 2 HOURS, 2 | | PM PDT | | | | | doses, First dose on Sat09/13/17 | | | | | | | at 1100, Last dose on 5/18/18 | | | | | | | at 1300 | | | | | | + +---------+ +--------+-------+---+ +---------+ +--------+-------+---+ | New Bag | 09/14/19 | 20 mEq | 130 | | | | 18 11:33 | | mL/hr | | | | AM PDT | | | | +---------+ +--------+-------+---+ +---+---+ | | | +---+---+ + +---------+ +--------+-------+---+ | potassium chloride 20 mEq / 260 | New Bag | 09/15/19 | 20 mEq | 130 | | | mL NS IV PERIPHERAL 20 mEq, | | 18 7:25 | | mL/hr | | | intravenous, EVERY 2 HOURS, 2 | | PM PDT | | | | | doses, First dose on 09/14/17 | | | | | | | at 1615, Last dose on 09/14/17 | | | | | | | at 1815 | | | | | | + +---------+ +--------+-------+---+ +---------+ +--------+-------+---+ | New Bag | 09/15/19 | 20 mEq | 130 | | | | 18 5:05 | | mL/hr | | | | PM PDT | | | | +---------+ +--------+-------+---+ +---+---+ | | | +---+---+ + +---------+ +--------+---+---+ | potassium chloride in water IV | New Bag | 09/03/19 | 20 mEq | | | | (CENTRAL LINE-ICU) 20 mEq 20 | | 18 6:18 | | | | | mEq, intravenous, EVERY 1 HOUR, 2 | | AM PDT | | | | | doses, First dose on Sat09/02/17 | | | | | | | at 0300, Last dose on Sat09/02/17 | | | | | | | at 0400 | | | | | | + +---------+ +--------+---+---+ +---------+ +--------+---+---+ | New Bag | 09/03/19 | 20 mEq | | | | | 18 4:57 | | | | | | AM PDT | | | | +---------+ +--------+---+---+ +---+---+ | | | +---+---+ + +---------+ +--------+---+---+ | potassium chloride in water IV | New Bag | 09/02/19 | 10 mEq | | | | 20 mEq 20 mEq, intravenous, | | 18 9:49 | | | | | ONCE, 1 dose, [place] 09/01/17 at 0915 | | AM PDT | | | | + +---------+ +--------+---+---+ +---+---+ | | | +---+---+ + +---------+ +--------+---+---+ | potassium chloride IV (central | New Bag | 09/04/19 | 40 mEq | | | | line) 40 mEq 40 mEq, | | 18 10:06 | | | | | intravenous, ONCE, 1 dose, Tue | | AM PDT | | | | | 09/03/17 at 0600 | | | | | | + +---------+ +--------+---+---+ +---+---+ | | | +---+---+ + +---------+ +--------+---+---+ | potassium chloride IV | New Bag | 10/23/19 | 20 mEq | | | | (peripheral line) 20 mEq 20 mEq, | | 18 9:43 | | | | | intravenous, ONCE, 1 dose, Tue | | AM PDT | | | | | 10/22/17 at 0930 | | | | | | + +---------+ +--------+---+---+ +---+---+ | | | +---+---+ + +---------+ +---------+---+---+ | potassium phosphate IV 15 mmol | New Bag | 09/03/19 | 15 mmol | | | | 15 mmol, intravenous, ONCE, 1 | | 18 9:58 | | | | | dose, 09/02/17 at 1000 | | AM PDT | | | | + +---------+ +---------+---+---+ +---+---+ | | | +---+---+ + +---------+ +---------+---+---+ | potassium phosphate IV 15 mmol | New Bag | 10/15/19 | 15 mmol | | | | 15 mmol, intravenous, ONCE, 1 | | 18 8:00 | | | | | dose, 10/14/17 at 0745 | | AM PDT | | | | + +---------+ +---------+---+---+ +---+---+ | | | +---+---+ + +---------+ +---------+---+---+ | potassium phosphate IV 15 mmol | | 10/26/19 | 15 mmol | | | | 15 mmol, intravenous, ONCE, 1 | | 18 4:04 | | | | | dose, [facility] 10/25/17 at 1530 | | PM PDT | | | | + +---------+ +---------+---+---+ +---+---+ | | | +---+---+ + +---------+ +---------+ +---+ | potassium phosphate IV 30 mmol | New Bag | 09/05/19 | 30 mmol | 50 mL/hr | | | 30 mmol, intravenous, ONCE, 1 | | 18 5:12 | | | | | dose, 09/04/17 at 0330 | | AM PDT | | | | + +---------+ +---------+ +---+ +---+---+ | | | +---+---+ + +---------+ +---------+-------+---+ | potassium phosphate IV 30 mmol | New Bag | 09/08/19 | 30 mmol | 125 | | | 30 mmol, intravenous, ONCE, 1 | | 18 4:42 | | mL/hr | | | dose, 09/07/17 at 0230 | | AM PDT | | | | + +---------+ +---------+-------+---+ +---+---+ | | | +---+---+ + +---------+ +---------+-------+---+ | potassium phosphate IV 30 mmol | New Bag | 09/28/19 | 30 mmol | 125 | | | 30 mmol, intravenous, ONCE, 1 | | 18 10:32 | | mL/hr | | | dose, [facility] 09/27/17 at 0815 | | AM PDT | | | | + +---------+ +---------+-------+---+ +---+---+ | | | +---+---+ + +-------+ + +---+---+ | potassium, sodium phosphates | Given | 10/22/19 | 1 packet | | | | (NEUTRA-PHOS, PHOS-NAK) | | 18 11:29 | | | | | 280-160-250 mg packet 1 packet 1 | | AM PDT | | | | | packet, feeding tube, ONCE, 1 | | | | | | | dose, 10/21/17 at 1015 | | | | | | + +-------+ + +---+---+ +---+---+ | | | +---+---+ + +-------+ +---------+---+---+ | potassium, sodium phosphates | Given | 09/06/19 | 2 | | | | (NEUTRA-PHOS, PHOS-NAK) | | 18 9:16 | packets | | | | 280-160-250 mg packet 2 packet 2 | | PM PDT | | | | | packet, feeding tube, TWICE | | | | | | | DAILY, 2 doses, First dose on Sho | | | | | | | 09/05/17 at 0800, Last dose on | | | | | | | [facility] 09/05/17 at 2100 | | | | | | + +-------+ +---------+---+---+ +-------+ +---------+---+---+ | Given | 09/06/19 | 2 | | | | | 18 8:19 | packets | | | | | AM PDT | | | | +-------+ +---------+---+---+ +---+---+ | | | +---+---+ + + + +---+---+---+ | probiotic kefir (ROBERT'S KEFIR) | Given - | 09/07/19 | | | | | oral, TWICE DAILY, First dose | Food | 18 7:52 | | | | | on 09/02/17 at 2100, Until | | AM PDT | | | | | Discontinued | | | | | | + + + +---+---+---+ + + +--------+---+---+ | Given - Food | 09/06/19 | 1 each | | | | | 18 9:16 | | | | | | PM PDT | | | | + + +--------+---+---+ | Given - Food | 09/06/19 | | | | | | 18 8:19 | | | | | | AM PDT | | | | + + +--------+---+---+ +---+---+ | | | +---+---+ + + + +---+---+---+ | probiotic kefir (ROBERT'S KEFIR) | Given - | 10/22/19 | | | | | feeding tube, TWICE DAILY, | Food | 18 8:41 | | | | | First dose on [facility] 10/10/17 at | | AM PDT | | | | | 2130, Until Discontinued | | | | | | + + + +---+---+---+ + + + +---+---+ | Given - Food | 10/20/19 | 0.5 each | | | | | 18 11:19 | | | | | | AM PDT | | | | + + + +---+---+ | Given - Food | 10/19/19 | | | | | | 18 9:27 | | | | | | PM PDT | | | | + + + +---+---+ +---+---+ | | | +---+---+ + + + +---+---+---+ | probiotic kefir (ROBERT'S KEFIR) | Given - | 11/08/19 | | | | | oral, THREE TIMES DAILY, First | Food | 18 8:10 | | | | | dose on Sat10/29/17 at 1600, Until | | AM PDT | | | | | Discontinued | | | | | | + + + +---+---+---+ + + +---+---+---+ | Given - Food | 11/07/19 | | | | | | 18 9:27 | | | | | | PM PDT | | | | + + +---+---+---+ | Given - Food | 11/07/19 | | | | | | 18 3:55 | | | | | | PM [...] +--------+---+---+ | prochlorperazine (COMPAZINE) | Given | 09/10/19 | 2.5 mg | | | | injection 2.5 mg 2.5 mg, | | 18 11:26 | | | | | intravenous, EVERY [...] +------+---+---+ | prochlorperazine (COMPAZINE) | Given | 10/29/19 | 5 mg | | | | injection 5 mg 5 mg, | | 18 8:54 | | | | | intravenous, EVERY 6 HOURS | | PM PDT | | | | | NEEDED, Starting Sat09/09/17 at | | | | | | | 2355, Until Sat10/29/17 at 0744, | | | | | | | nausea/vomiting, second line | | | | | | + +-------+ +------+---+---+ +-------+ +------+---+---+ | Given | 10/28/19 | 5 mg | | | | | 18 6:28 | | | | | | PM PDT | | | | +-------+ +------+---+---+ | Given | 10/27/19 | 5 mg | | | | | 18 8:21 | | | | | | PM [...] +---------+---+---+ | promethazine (PHENERGAN) | Given | 10/29/19 | 6.25 mg | | | | injection 6.25 mg 6.25 mg, | | 18 12:25 | | | | | intravenous, EVERY 6 HOURS | | AM PDT | | | | | NEEDED, Starting Sat09/09/17 at | | | | | | | 2358, Until Sat11/12/17 at 0740, | | | | | | | nausea/vomiting, third line | | | | | | + +-------+ +---------+---+---+ +-------+ +---------+---+---+ | Given | 10/27/19 | 6.25 mg | | | | | 18 7:03 | | | | | | PM PDT | | | | +-------+ +---------+---+---+ | Given | 10/23/19 | 6.25 mg | | | | | 18 11:48 | | | | | | PM PDT | | | | +-------+ +---------+---+---+ +---+---+ | | | +---+---+ + + + +-------+---+---+ | propofol (DIPRIVAN) bolus from | Bolus | 09/05/19 | 20 mg | | | | continuous infusion 10-20 mg | from | 18 7:00 | | | | | intravenous, EVERY 15 MINUTES | Same Bag | AM PDT | | | | | NEEDED, [...] +-------+---+---+ | Bolus from Same Bag | 09/05/19 | 20 mg | | | | | 18 5:15 | | | | | | AM PDT | | | | + + +-------+---+---+ | Bolus from Same Bag | 09/05/19 | 20 mg | | | | | 18 4:30 | | | | | | AM PDT | | | | + + +-------+---+---+ +---+---+ | | | +---+---+ + + + +-------+---+---+ | propofol (DIPRIVAN) bolus from | Bolus | 09/05/19 | 20 mg | | | | continuous infusion 10-20 mg | from | 18 3:22 | | | | | intravenous, EVERY 15 MINUTES | Same Bag | PM PDT | | | | [...] +-------+---+---+ | Bolus from Same Bag | 09/05/19 | 20 mg | | | | | 18 11:00 | | | | | | AM PDT | | | | + + +-------+---+---+ + +---+ | | | + +---+ | propofol (DIPRIVAN) injection | | | 1 dose, Starting 08/31/17 at | | | 1656, Until 08/31/17 at 1936 | | + +---+ | | | [...] | propofol (DIPRIVAN) injection | Bolus | 09/05/19 | 15 | 6.89 | | | 0.5-50 mcg/kg/min | from | 18 10:32 | mcg/kg/m | mL/hr | | | 76.5 kg Dosing weight | Same Bag | AM PDT | in | | [...] | propofol (DIPRIVAN) injection | Rate/Dos | 10/14/19 | 5 | 2.3 | | | 0.5-50 mcg/kg/min | e Verify | 18 10:00 | mcg/kg/m | mL/hr | | | 76.5 kg Dosing weight | | AM PDT | in | | | | (0.2295-22.95 mL/hr, rounded to | | | | | | | 0.23-22.95 mL/hr), intravenous, | | | | | | | CONTINUOUS, Starting 10/12/17 | | | | | | | at 2015, Until 10/14/17 at | | | | | | | 0646 | | | | | | + + + + +-------+---+ + + + +-------+---+ | Rate/Dose Change | 10/14/19 | 5 | 2.3 | | | | 18 9:00 | mcg/kg/m | mL/hr | | | | AM PDT | in | | | + + + +-------+---+ | Rate/Dose Change | 10/14/19 | 10 | 4.59 | | | | 18 8:29 | mcg/kg/m | mL/hr | | | | AM PDT | in | | | + + + +-------+---+ +---+---+ | | | +---+---+ + +-------+ +-------+---+---+ | propranolol (INDERAL) tablet 10 | Given | 10/21/19 | 10 mg | | | | mg 10 mg, feeding tube, THREE | | 18 9:26 | | | | | TIMES DAILY, First dose (after | | PM PDT | | | | | last modification) on 10/20/17 | | | | | | | at 1600, Until Discontinued | | | | | | + +-------+ +-------+---+---+ +---+---+ | | | +---+---+ + +-------+ +-------+---+---+ | propranolol (INDERAL) tablet 20 | Given | 10/20/19 | 20 mg | | | | mg 20 mg, feeding tube, THREE | | 18 9:54 | | | | | TIMES DAILY, First dose on Sat | | PM PDT | | | | | 10/11/17 at 1600, Until | | | | | | | Discontinued | | | | | | + +-------+ +-------+---+---+ +-------+ +-------+---+---+ | Given | 10/20/19 | 20 mg | | | | | 18 4:20 | | | | | | PM PDT | | | | +-------+ +-------+---+---+ | Given | 10/19/19 | 20 mg | | | | | 18 9:43 | | | | | | PM PDT | | | | +-------+ +-------+---+---+ +---+---+ | | | +---+---+ + +-------+ +--------+---+---+ | QUEtiapine (SEROQUEL) tablet | Given | 11/23/19 | 100 mg | | | | 100 mg 100 mg, oral, AT BEDTIME, | | 18 8:56 | | | | | First dose (after last | | PM PDT | | | | | modification) on Sat11/20/17 at | | | | | | | 2000, Until Discontinued | | | | | | + +-------+ +--------+---+---+ +-------+ +--------+---+---+ | Given | 11/22/19 | 100 mg | | | | | 18 7:52 | | | | | | PM PDT | | | | +-------+ +--------+---+---+ | Given | 11/21/19 | 100 mg | | | | | 18 8:50 | | | | | | PM PDT | | | | +-------+ +--------+---+---+ +---+---+ | | | +---+---+ + +-------+ +--------+---+---+ | QUEtiapine (SEROQUEL) tablet | Given | 12/01/19 | 100 mg | | | | 100 mg 100 mg, feeding tube, AT | | 18 9:09 | | | | | BEDTIME, First dose (after last | | PM PDT | | | | | modification) on 11/23/17 at | | | | | | | 2000, Until Discontinued | | | | | | + +-------+ +--------+---+---+ +-------+ +--------+---+---+ | Given | 11/30/19 | 100 mg | | | | | 18 9:07 | | | | | | PM PDT | | | | +-------+ +--------+---+---+ | Given | 11/29/19 | 100 mg | | | | | 18 9:22 | | | | | | PM PDT | | | | +-------+ +--------+---+---+ +---+---+ | | | +---+---+ + +-------+ +---------+---+---+ | QUEtiapine (SEROQUEL) tablet | Given | 10/16/19 | 12.5 mg | | | | 12.5 mg 12.5 mg, oral, ONCE, 1 | | 18 1:18 | | | | | dose, 10/15/17 at 0115 | | AM PDT | | | | + +-------+ +---------+---+---+ +---+---+ | | | +---+---+ + +-------+ +-------+---+---+ | QUEtiapine (SEROQUEL) tablet 25 | Given | 09/24/19 | 25 mg | | | | mg 25 mg, oral, AT BEDTIME, | | 18 9:45 | | | | | First dose (after last | | PM PDT | | | | | modification) on Sat09/23/17 at | | | | | | | 2200, Until Discontinued | | | | | | + +-------+ +-------+---+---+ +---+---+ | | | +---+---+ + +-------+ +-------+---+---+ | QUEtiapine (SEROQUEL) tablet 25 | Given | 11/22/19 | 25 mg | | | | mg 25 mg, oral, EVERY 12 HOURS | | 18 2:57 | | | | | NEEDED, Starting 11/17/17 | | PM PDT | | | | | at 0721, Until 11/23/17 at | | | | | | | 1512, agitation | | | | | | + +-------+ +-------+---+---+ +-------+ +-------+---+---+ | Given | 11/22/19 | 25 mg | | | | | 18 1:36 | | | | | | AM PDT | | | | +-------+ +-------+---+---+ | Given | 11/21/19 | 25 mg | | | | | 18 1:46 | | | | | | AM PDT | | | | +-------+ +-------+---+---+ +---+---+ | | | +---+---+ + +-------+ +-------+---+---+ | QUEtiapine (SEROQUEL) tablet 25 | Given | 11/25/19 | 25 mg | | | | mg 25 mg, feeding tube, EVERY | | 18 1:59 | | | | | 12 HOURS NEEDED, Starting Sat | | PM PDT | | | | | 11/23/17 at 1512, Until Sun | | | | | | | 11/24/17 at 1555, agitation | | | | | | + +-------+ +-------+---+---+ +---+---+ | | | +---+---+ + +-------+ +-------+---+---+ | QUEtiapine (SEROQUEL) tablet 25 | Given | 11/28/19 | 25 mg | | | | mg 25 mg, feeding tube, EVERY 8 | | 18 1:22 | | | | | HOURS NEEDED, Starting Sun | | PM PDT | | | | | 11/24/17 at 1600, Until Sho 11/28/17 | | | | | | | at 0828, agitation | | | | | | + +-------+ +-------+---+---+ +---+---+ | | | +---+---+ + +-------+ +-------+---+---+ | QUEtiapine (SEROQUEL) tablet 25 | Given | 11/25/19 | 25 mg | | | | mg 25 mg, oral, ONCE, 1 dose, | | 18 4:45 | | | | | 11/24/17 at 1630 | | PM PDT | | | | + +-------+ +-------+---+---+ +---+---+ | | | +---+---+ + +-------+ +-------+---+---+ | QUEtiapine (SEROQUEL) tablet 25 | Given | 11/28/19 | 25 mg | | | | mg 25 mg, oral, ONCE, 1 dose, | | 18 6:03 | | | | | 11/27/17 at 1730 | | PM PDT | | | | + +-------+ +-------+---+---+ +---+---+ | | | +---+---+ + +-------+ +-------+---+---+ | QUEtiapine (SEROQUEL) tablet 50 | Given | 11/20/19 | 50 mg | | | | mg 50 mg, oral, AT BEDTIME, | | 18 9:43 | | | | | First dose on 11/17/17 at | | PM PDT | | | | | 2200, Until Discontinued | | | | | | + +-------+ +-------+---+---+ +-------+ +-------+---+---+ | Given | 11/19/19 | 50 mg | | | | | 18 10:29 | | | | | | PM PDT | | | | +-------+ +-------+---+---+ | Given | 11/18/19 | 50 mg | | | | | 18 9:22 | | | | | | PM PDT | | | | +-------+ +-------+---+---+ +---+---+ | | | +---+---+ + +-------+ +-------+---+---+ | QUEtiapine (SEROQUEL) tablet 50 | Given | 12/02/19 | 50 mg | | | | mg 50 mg, feeding tube, TWICE | | 18 8:46 | | | | | DAILY, First dose (after last | | AM PDT | | | | | modification) on [facility] 11/28/17 at | | | | | | | 0845, Until Discontinued | | | | | | + +-------+ +-------+---+---+ +-------+ +-------+---+---+ | Given | 12/01/19 | 50 mg | | | | | 18 2:23 | | | | | | PM PDT | | | | +-------+ +-------+---+---+ | Given | 12/01/19 | 50 mg | | | | | 18 9:28 | | | | | | AM PDT | | | | +-------+ +-------+---+---+ +---+---+ | | | +---+---+ + +-------+ +-------+---+---+ | QUEtiapine (SEROQUEL) tablet 50 | Given | 12/02/19 | 50 mg | | | | mg 50 mg, oral, EVERY 6 HOURS | | 18 1:25 | | | | | NEEDED, Starting [facility] 11/28/17 at | | AM PDT | | | | | 1612, Until [place] 12/01/17 at 0842, | | | | | | | agitation | | | | | | + +-------+ +-------+---+---+ +-------+ +-------+---+---+ | Given | 12/01/19 | 50 mg | | | | | 18 11:32 | | | | | | AM PDT | | | | +-------+ +-------+---+---+ | Given | 12/01/19 | 50 mg | | | | | 18 1:19 | | | | | | AM PDT | | | | +-------+ +-------+---+---+ +---+---+ | | | +---+---+ + +-------+ +--------+---+---+ | rocuronium (ZEMURON) injection | Given | 09/02/19 | 100 mg | | | | 1 dose, Starting 09/01/17 at | | 18 10:45 | | | | | 1038, Until 09/01/17 at 1045 | | AM PDT | | | | + +-------+ +--------+---+---+ +---+---+ | | | +---+---+ + +-------+ +---------+---+---+ | senna (SENOKOT) liquid 17.6 mg | Given | 09/19/19 | 17.6 mg | | | | 17.6 mg (10 mL), feeding tube, | | 18 9:07 | | | | | TWICE DAILY, First dose on Sat | | PM PDT | | | | | 09/04/17 at 0900, Until | | | | | | | Discontinued | | | | | | + +-------+ +---------+---+---+ +-------+ +---------+---+---+ | Given | 09/16/19 | 17.6 mg | | | | | 18 9:36 | | | | | | AM PDT | | | | +-------+ +---------+---+---+ | Given | 09/15/19 | 17.6 mg | | | | | 18 9:02 | | | | | | PM PDT | | | | +-------+ +---------+---+---+ +---+---+ | | | +---+---+ + +-------+ +---------+---+---+ | senna (SENOKOT) liquid 17.6 mg | Given | 10/22/19 | 17.6 mg | | | | 17.6 mg (10 mL), feeding tube, | | 18 9:30 | | | | | TWICE DAILY, First dose on Sun | | PM PDT | | | | | 10/13/17 at 2100, Until | | | | | | | Discontinued | | | | | | + +-------+ +---------+---+---+ +-------+ +---------+---+---+ | Given | 10/22/19 | 17.6 mg | | | | | 18 8:39 | | | | | | AM PDT | | | | +-------+ +---------+---+---+ | Given | 10/21/19 | 17.6 mg | | | | | 18 9:26 | | | | | | PM [...] (SENOKOT) tablet 2 tablet | Given | 09/03/19 | 2 | | | | 2 tablet, oral, TWICE DAILY, | | 18 9:23 | tablets | | | | First dose on 08/31/17 at 2100, | | PM PDT | | | | | Until Discontinued | | | | | | + +-------+ +---------+---+---+ +-------+ +---------+---+---+ | Given | 09/03/19 | 2 | | | | | 18 8:54 | tablets | | | | | AM PDT | | | | +-------+ +---------+---+---+ +---+---+ | | | +---+---+ + +-------+ + +---+---+ | senna-docusate (SENOKOT S) | Given | 11/11/19 | 1 tablet | | | | 8.6-50 mg 1 tablet 1 tablet, | | 18 7:47 | | | | | oral, TWICE DAILY, First dose on | | AM PDT | | | | | 11/02/17 at 1330, Until | | | | | | | Discontinued | | | | | | + +-------+ + +---+---+ +-------+ + +---+---+ | Given | 11/10/19 | 1 tablet | | | | | 18 8:15 | | | | | | PM PDT | | | | +-------+ + +---+---+ | Given | 11/10/19 | 1 tablet | | | | | 18 9:17 | | | | | | AM PDT | | | | +-------+ + +---+---+ +---+---+ | | | +---+---+ + + + + + +---+ | sodium chloride 0.9% IV | Rate/Dos | 10/12/19 | 75 mL/hr | 75 mL/hr | | | infusion 75 mL/hr, intravenous, | e Verify | 18 4:00 | | | | | CONTINUOUS, Starting Sho 10/10/17 | | PM PDT | | | | | at 0430, Until Sat10/11/17 at | | | | | | | 1334 | | | | | | + + + + + +---+ + + + + +---+ | Rate/Dose Verify | 10/12/19 | 75 mL/hr | 75 mL/hr | | | | 18 3:00 | | | | | | PM PDT | | | | + + + + +---+ | Rate/Dose Verify | 10/12/19 | 75 mL/hr | 75 mL/hr | | | | 18 2:00 | | | | | | PM PDT | | | | + + + + +---+ +---+---+ | | | +---+---+ + +-------+ +--------+---+---+ | thiamine (VITAMIN B-1) | Given | 10/07/19 | 100 mg | | | | injection 100 mg 100 mg, | | 18 10:07 | | | | | intravenous, DAILY, First dose on | | AM PDT | | | | | 09/24/17 at 1445, Until | | | | | | | Discontinued | | | | | | + +-------+ +--------+---+---+ +-------+ +--------+---+---+ | Given | 10/06/19 | 100 mg | | | | | 18 7:45 | | | | | | AM PDT | | | | +-------+ +--------+---+---+ | Given | 10/05/19 | 100 mg | | | | | 18 8:06 | | | | | | AM PDT | | | | +-------+ +--------+---+---+ +---+---+ | | | +---+---+ + +-------+ +--------+---+---+ | thiamine tablet 100 mg 100 mg, | Given | 09/04/19 | 100 mg | | | | oral, DAILY, 3 doses, First dose | | 18 11:38 | | | | | on 09/01/17 at 2030, Last dose | | AM PDT | | | | | on 09/03/17 at 0900 | | | | | | + +-------+ +--------+---+---+ +-------+ +--------+---+---+ | Given | 09/03/19 | 100 mg | | | | | 18 8:54 | | | | | | AM PDT | | | | +-------+ +--------+---+---+ | Given | 09/02/19 | 100 mg | | | | | 18 10:37 | | | | | | PM PDT | | | | +-------+ +--------+---+---+ +---+---+ | | | +---+---+ + +-------+ +--------+---+---+ | thiamine tablet 100 mg 100 mg, | Given | 09/10/19 | 100 mg | | | | oral, DAILY, 3 doses, First dose | | 18 9:21 | | | | | on 09/07/17 at 1930, Last | | AM PDT | | | | | dose on 09/09/17 at 0900 | | | | | | + +-------+ +--------+---+---+ +-------+ +--------+---+---+ | Given | 09/09/19 | 100 mg | | | | | 18 8:21 | | | | | | AM PDT | | | | +-------+ +--------+---+---+ | Given | 09/08/19 | 100 mg | | | | | 18 6:30 | | | | | | PM PDT | | | | +-------+ +--------+---+---+ +---+---+ | | | +---+---+ + +-------+ +--------+---+---+ | thiamine tablet 100 mg 100 mg, | Given | 09/23/19 | 100 mg | | | | oral, DAILY, First dose on Sat | | 18 8:41 | | | | | 09/21/17 at 1230, Until | | AM PDT | | | | | Discontinued | | | | | | + +-------+ +--------+---+---+ +-------+ +--------+---+---+ | Given | 09/22/19 | 100 mg | | | | | 18 12:03 | | | | | | PM PDT | | | | +-------+ +--------+---+---+ +---+---+ | | | +---+---+ + +-------+ +--------+---+---+ | thiamine tablet 100 mg 100 mg, | Given | 10/22/19 | 100 mg | | | | feeding tube, DAILY, First dose | | 18 8:41 | | | | | on 10/07/17 at 0900, Until | | AM PDT | | | | | Discontinued | | | | | | + +-------+ +--------+---+---+ +-------+ +--------+---+---+ | Given | 10/21/19 | 100 mg | | | | | 18 8:59 | | | | | | AM PDT | | | | +-------+ +--------+---+---+ | Given | 10/20/19 | 100 mg | | | | | 18 8:52 | | | | | | AM PDT | | | | +-------+ +--------+---+---+ +---+---+ | | | +---+---+ + +-------+ +--------+---+---+ | traZODone (DESYREL) tablet 100 | Given | 11/21/19 | 100 mg | | | | mg 100 mg, feeding tube, AT | | 18 8:50 | | | | | BEDTIME, First dose (after last | | PM PDT | | | | | modification) on 11/16/17 at | | | | | | | 2200, Until Discontinued | | | | | | + +-------+ +--------+---+---+ +-------+ +--------+---+---+ | Given | 11/20/19 | 100 mg | | | | | 18 9:43 | | | | | | PM PDT | | | | +-------+ +--------+---+---+ | Given | 11/19/19 | 100 mg | | | | | 18 10:29 | | | | | | PM PDT | | | | +-------+ +--------+---+---+ +---+---+ | | | +---+---+ + +-------+ +--------+---+---+ | traZODone (DESYREL) tablet 100 | Given | 11/22/19 | 100 mg | | | | mg 100 mg, feeding tube, AT | | 18 7:53 | | | | | BEDTIME, First dose (after last | | PM PDT | | | | | modification) on Sat11/21/17 at | | | | | | | 2000, Until Discontinued | | | | | | + +-------+ +--------+---+---+ +---+---+ | | | +---+---+ + +-------+ +--------+---+---+ | traZODone (DESYREL) tablet 150 | Given | 11/27/19 | 150 mg | | | | mg 150 mg, feeding tube, AT | | 18 8:10 | | | | | BEDTIME, First dose (after last | | PM PDT | | | | | modification) on Sat11/22/17 at | | | | | | | 2000, Until Discontinued | | | | | | + +-------+ +--------+---+---+ +-------+ +--------+---+---+ | Given | 11/26/19 | 150 mg | | | | | 18 8:04 | | | | | | PM PDT | | | | +-------+ +--------+---+---+ | Given | 11/25/19 | 150 mg | | | | | 18 8:39 | | | | | | PM PDT | | | | +-------+ +--------+---+---+ +---+---+ | | | +---+---+ + +-------+ +--------+---+---+ | traZODone (DESYREL) tablet 200 | Given | 11/28/19 | 200 mg | | | | mg 200 mg, feeding tube, AT | | 18 8:18 | | | | | BEDTIME, First dose (after last | | PM PDT | | | | | modification) on Sat11/27/17 at | | | | | | | 2000, Until Discontinued | | | | | | + +-------+ +--------+---+---+ +---+---+ | | | +---+---+ + +-------+ +-------+---+---+ | traZODone (DESYREL) tablet 50 | Given | 11/16/19 | 50 mg | | | | mg 50 mg, feeding tube, AT | | 18 8:14 | | | | | BEDTIME, First dose (after last | | PM PDT | | | | | modification) on 11/10/17 at | | | | | | | 2200, Until Discontinued | | | | | | + +-------+ +-------+---+---+ +-------+ +-------+---+---+ | Given | 11/15/19 | 50 mg | | | | | 18 9:36 | | | | | | PM PDT | | | | +-------+ +-------+---+---+ | Given | 11/14/19 | 50 mg | | | | | 18 9:53 | | | | | | PM PDT | | | | +-------+ +-------+---+---+ +---+---+ | | | +---+---+ + +---------+ + +---+---+ | valproate (DEPACON) IV 1,000 mg | New Bag | 10/11/19 | 1,000 mg | | | | 1,000 mg, intravenous, ONCE, | | 18 4:31 | | | | | dose, [facility] 10/10/17 at 0415 | | AM PDT | | | | + +---------+ [...] valproate (DEPAKENE) liquid 250 | Given | 10/10/19 | 250 mg | | | | mg 250 mg, feeding tube, TWICE | | 18 9:17 | | | | | DAILY, First dose on Sat10/08/17 | | PM PDT | | | | | at 2100, Until Discontinued | | | | | | + +-------+ +--------+---+---+ +-------+ +--------+---+---+ | Given | 10/10/19 | 250 mg | | | | | 18 8:11 | | | | | | AM PDT | | | | +-------+ +--------+---+---+ | Given | 10/09/19 | 250 mg | | | | | 18 8:47 | | | | | | PM PDT | | | | +-------+ +--------+---+---+ +---+---+ | | | +---+---+ + +---------+ + +---+---+ | vancomycin (VANCOCIN) IV 1,000 | New Bag | 06/16/20 | 1,000 mg | | | | mg 1,000 mg, intravenous, EVERY | | 18 3:22 | | | | | 12 HOURS, First dose on Fri | | AM PDT | | | | | 10/11/17 at 0300, Until | | | | | | | Discontinued | | | | | | + +---------+ + +---+---+ +---------+ + +---+---+ | New Bag | 10/12/19 | 1,000 mg | | | | | 18 3:00 | | | | | | PM PDT | | | | +---------+ + +---+---+ | New Bag | 10/12/19 | 1,000 mg | | | | | 18 3:25 | | | | | | AM PDT | | | | +---------+ + +---+---+ +---+---+ | | | +---+---+ + +---------+ + +---+---+ | vancomycin (VANCOCIN) IV 1,250 | New Bag | 09/06/19 | 1,250 mg | | | | mg 1,250 mg (rounded from | | 18 1:37 | | | | | 1,147.5 mg = 15 mg/kg | | PM PDT | | | | | 76.5 [...] +---------+ + +---+---+ | New Bag | 09/06/19 | 1,250 mg | | | | | 18 1:30 | | | | | | AM PDT | | | | +---------+ + +---+---+ | New Bag | 09/05/19 | 1,250 mg | | | | | 18 1:28 | | | | | | PM PDT | | | | +---------+ + +---+---+ +---+---+ | | | +---+---+ + +---------+ + +---+---+ | vancomycin (VANCOCIN) IV 1,250 | New Bag | 09/07/19 | 1,250 mg | | | | mg 1,250 mg, intravenous, EVERY | | 18 1:33 | | | | | 12 HOURS, 11 doses, First dose on | | AM PDT | | | | | 09/06/17 at 0200, Last dose | | | | | | | on 09/11/17 at 0200 | | | | | | + +---------+ + +---+---+ +---+---+ | | | +---+---+ + +---------+ + +---+---+ | vancomycin (VANCOCIN) IV 1,250 | New Bag | 10/11/19 | 1,250 mg | | | | mg 1,250 mg, intravenous, ONCE, | | 18 3:18 | | | | | 1 dose, [facility] 10/10/17 at 1400 | | PM PDT | | | | + +---------+ + +---+---+ +---+---+ | | | +---+---+ + +---------+ + +---+---+ | vancomycin (VANCOCIN) IV 1,250 | New Bag | 10/13/19 | 1,250 mg | | | | mg 1,250 mg, intravenous, EVERY | | 18 12:00 | | | | | 12 HOURS, First dose (after last | | PM PDT | | | | | modification) on 10/12/17 at | | | | | | | 1200, Until Discontinued | | | | | | + +---------+ + +---+---+ +---+---+ | | | +---+---+ documented in this encounter
--- OUTSIDE RECORDS SUMMARY | ~2019-12-25 | XMS | Encounter Summary ---
Demographics + + + | Address | [address] | | | [place] [address] | + + + | Home Phone [...] Author + + + | Author | [facility] | + + + | Organization | [facility] [facility] | + + + | Address | Unknown | + + + | Phone | Unavailable | + + + Support + + +---------+ + | Name | Relationship | Address | Phone | + + +---------+ + | Kaylie Baig | ECON | Unknown | | + + +---------+ + Care Team Providers + +------+ + | Care Coordinator Mining Products Name | Role | Phone | + [...] [facility] | | | | | [facility] | [address] | | | | | Hospital Admitting | [place], [place] | | | | | Desk Located on the | [address] | | | | | 9th floor | [phone] | | | | | [place], [place] | | | | | | [address] | Mariann Victor CRNA | | | | | | [address] | | | | | | [address] | | | | | | [place], [place] | | | | | | [address] | | | | | | [phone] | | | | | | | [...] | | | | Lumen | Yes; [id number]; 11/09/17; 1154; | | | | | [...] CRNA - 11/05/2017 7:13 PM [facility] [id number] No Known Allergies History reviewed. No pertinent [...] - 11/05/2017 3:31 PM PDT [place] [facility] [id number] No Known Allergies NPO:NPO Status: [place] Last [...] Date RATE 71 11/04/2017 ATRIALRATE 73 11/04/2017 WV 142 11/04/2017 QRS 127 11/04/2017 QT 406 11/04/2017 PAXIS 64 11/04/2017 RAXIS 86 11/04/2017 TAXIS 43 11/04/2017 Preoperative Adult Anesthesia Plan Last edited 11/05/17 6291 by Mariann Victor CRNA ROS: HPI: Pt [...] Within Defined Limits except as noted below Urology/Field Marketing Team Leader: Within Defined Limits except as noted below [...] > 11/05/17 1531 Mariann Victor CRNA Nurse Screen Writer Addend 11/05/17 1530 Mariann Victor CRNA Nurse Screen Writer Addend 11/05/17 1529 Mariann Victor CRNA Nurse Screen Writer Sign 11/05/17 1524 Mariann Victor CRNA Nurse Screen Writer Share Anesthesia Plan Comments ASA ASA 3 [...] Within Defined Limits except as noted below Urology/Field Marketing Team Leader: Within Defined Limits except as noted below [...]
--- OUTSIDE RECORDS SUMMARY | ~2019-12-25 | XMS | Encounter Summary ---
Demographics + + + | Address | [address] | | | [place] [address] | + + + | Home Phone [...] + + + | Author | [facility] | + + + | Organization | [facility] [employer] [facility] | + + + | Address | Unknown | + + + | Phone | Unavailable | + + + Support + + +---------+ + | Name | Relationship | Address | Phone | + + +---------+ + | Kaylie Baig | ECON | Unknown | | + + +---------+ + Care Team Providers + +------+ + | Care Assembly Line Supervisor Name | Role | Phone | [...] | | | | | | Rd [facility] | | | | | | Hospital Admitting | | | | | | Desk Located on the | | | | | | 9th floor | | | | | | [place], [place] | | | | | | [address] | | | +--------+ + + + [...]
--- OUTSIDE RECORDS SUMMARY | ~2019-12-25 | XMS | Encounter Summary ---
Demographics + + + | Address | [address] | | | [place] [address] | + + + | Home Phone [...] + + | Author | [facility] | + + + | Organization | [facility] | + + + | Address | Unknown | + + + | Phone | Unavailable | + + + Support + + +---------+ + | Name | Relationship | Address | Phone | + + +---------+ + | Kaylie Baig | ECON | Unknown | | + + +---------+ + Care Team Providers + +------+ + | Care Student Life Dean Name | Role | Phone | + +------+ + | No Pcp Per Patient | PCP | Unavailable | + +------+ + Encounter Details +--------+ + + + + | Date | Type | Department | Care Team | Description | +--------+ + + + + | 08/31/ | Procedure | Diagnostic Imaging | | | | 2018 | Pass | Services at [facility] | | | | | | [address] | | | | | | Nola Perez | | | | | | [facility] | | | | | | [place], [place] | | | | | | [address] | | | | | | [phone] | | | +--------+ + + + [...]
--- OUTSIDE RECORDS SUMMARY | ~2019-12-25 | XMS | Encounter Summary ---
Demographics + + + | Address | [address] | | | [place] [address] | + + + | Home Phone [...] + | Author | [facility] | + + + | Organization | [facility] [facility] | + [...] Team Providers + +------+ + | Care Wet Sander Name | Role | Phone | + [...] 2017 | Pass | Services at [facility] | | | | | | [address] | | | | | | Nola WALTERS | | | | | | [facility], [address] [place] [address] | | | | | | [place], [place] | | | | | | [address] | | | | | | [phone] | | | +--------+ + + + [...]
--- OUTSIDE RECORDS SUMMARY | ~2019-12-25 | XMS | Encounter Summary ---
Demographics + + + | Address | [address] | | | [place] [address] | + + + | Home Phone [...] Author + + + | Author | [facility] | + + + | Organization | [facility] [...] Team Providers + +------+ + | Care Roll Plugger Name | Role | Phone | + +------+ + | No Pcp Per Patient | PCP | Unavailable | + +------+ + Encounter Details +--------+ + + + + | Date | Type | Department | Care Team | Description | +--------+ + + + + | 08/31/ | Procedure | Diagnostic Imaging | | | | 2017 | Pass | Services at [facility] | | | | | | [address] | | | | | | [place] | | | | | | [facility], [address] [place] [address] | | | | | | [place], [place] | | | | | | [address] | | | | | | [phone] | | | +--------+ + + + [...]
--- OUTSIDE RECORDS SUMMARY | ~2019-12-25 | XMS | Encounter Summary ---
Demographics + + + | Address | [address] | | | [place] [address] | + + + | Home Phone [...] | Author | [facility] | + + + | Organization | [facility] | + + + | Address | Unknown | + + + | Phone | Unavailable | + + + Support + + +---------+ + | Name | Relationship | Address | Phone | + + +---------+ + | Kaylie Baig | ECON | Unknown | | + + +---------+ + Care Team Providers + +------+ + | Care Case Manager Specialist Name | Role | Phone | [...] floor | | | | | | [place], [place] | | | | | | [address] | | | +--------+ + + + [...]
--- OUTSIDE RECORDS SUMMARY | ~2019-12-25 | XMS | Encounter Summary ---
Demographics + + + | Address | [address] | | | [place] [address] | + + + | Home Phone [...] Author + + + | Author | [facility] | + + + | Organization | [facility] | + + + | Address | Unknown | + + + | Phone | Unavailable | + + + Support + + +---------+ + | Name | Relationship | Address | Phone | + + +---------+ + | Kaylie Baig | ECON | Unknown | | + + +---------+ + Care Team Providers + +------+ + | Care Escrow Agent Name | Role | Phone | [...] | 2017 | Pass | Services at [facility] | | | | | | [address] | | | | | | [place]ola Perez | | | | | | [facility] | | | | | | [place], [place] | | | | | | [address] | | | | | | [phone] | | | +--------+ + + + [...]
--- OUTSIDE RECORDS SUMMARY | ~2019-12-25 | XMS | Encounter Summary ---
Demographics + + + | Address | [address] | | | [place] [address] | + + + | Home Phone [...] + | Author | [facility] | + + + | Organization | [facility] | + + [...] Providers + +------+ + | Care Manager Life Name | Role | Phone | + [...] CENTER | | | | | | [address] | | | | | | [place] | | | | | | [facility], [address] [place] [address] | | | | | | [place], [place] | | | | | | [address] | | | | | | [phone] | | | +--------+ + + + [...]
--- OUTSIDE RECORDS SUMMARY | ~2019-12-25 | XMS | Encounter Summary ---
Demographics + + + | Address | [address] | | | [place] [address] | + + + | Home Phone [...] + + + | Author | [facility] | + + + | Organization | [facility] [employer] [facility] | + [...] Team Providers + +------+ + | Care Gis Physical Scientist Name | Role | Phone | [...] Pharmacy | | | | | | [address] | | | | | | [place], [place] | | | | | | [address] | | | | | | [phone] | | | +--------+ + + + [...]
--- OUTSIDE RECORDS SUMMARY | ~2019-12-25 | XMS | Clinical Summary ---
Demographics + + + | Address | [address] | | | [place] [address] | + + + | Home Phone [...] Team Providers + +------+ + | Care Transplant Registered Nurse Name | Role | Phone | + +------+ + | No Pcp Per Patient | PCP | Unavailable | + +------+ + Source Comments SELE[facility] is fully live on both [facility] and [facility] In[facility] Allergies No Known Allergies Medications + + [...] | / | | MD Magdiel at [facility] | | | | | | [...] | | | | | | | [id number]: Qty: 11 | | | | | | | | on 11/05/2017 by Dayami, | | | | | | | | MD Magdiel at [facility] | | | | | | [...] | | | | | | | [id number]: Qty: | | | | | | | | 1Explanted: Qty: 1 on | | | | | | | | 11/05/2017 at [facility] | | | | | | [...] | | | + +--------+ +--------+-------+---------+--------+ | [employer] MEDICAID | [employer] | [id number] | 08/28/19 | | | Medica | [...] Person | Self | [birth year] | | [id number] | | | al/Fam | | 1951 | [phone] | [place] [address] | | | taras | | | 6 (Home) | | + +--------+ +--------+ + + | [employer] | Third | Self | [birth year] | | [id number] | | | Libertarian | | 1951 | [phone] | [place] [address] | | | Liabil | | | [...]
--- OUTSIDE RECORDS SUMMARY | ~2019-12-25 | XMS | Encounter Summary ---
Demographics + + + | Address | [address] | | | [place] [address] | + + + | Home Phone [...] + + | Author | [facility] [employer] [facility] | + + + | Organization | [facility] [employer] [facility] | + + + | Address | Unknown | + + + | Phone | Unavailable | + + + Support + + +---------+ + | Name | Relationship | Address | Phone | + + +---------+ + | Kaylie Baig | ECON | Unknown | | + + +---------+ + Care Team Providers + +------+ + | Care Kindergarten Paraprofessional Name | Role | Phone | + [...] | | | | | Procedures | [place], [place] | [place] | | | | | REQUEST TO | [address] | [address] | | | | | SURGERY | Phone: | Phone: | | | | | LOG RAFT WORKER | [phone] | [phone] | | | | | [place] REPLACE | Fax: | Fax: | | | | | SKULL | [phone] | [phone] | | | | | PLATE/FLAP | | | | | | | [place] REPAIR | | | | | | | SKULL | | | | | | | DEFECT,UP TO | | | | | | | 5CM [place] | | | | | | | REPAIR SKULL | | | | | | | DEFECT,>5CM | | | | | | | [place] | | | | | | | [...] + + + + | 10/31/ | [employer] | [facility] | Magdiel Stock MD | Skull defect | | 2018 | | [facility] [address] | [address] | (Primary Dx) | | | | [facility] [place] [facility] | [place], | | | | | [facility], | [place] [address] | | | | | [place] [address] | [phone] | | | | | [place], [place] | | | | | | [address] | | | | | | [phone] | | | +--------+ + + + [...]
--- OUTSIDE RECORDS SUMMARY | ~2019-12-25 | XMS | Encounter Summary ---
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 lamina with canal i ntrusion. Patient being managed in C collar and SHOPPING INVESTIGATOR. -Developed drainage from previous crani site on 09/23 and concern for possible neuro exam ch sonny. Repeat imaging was stable. Wound sutured at bedside, but now with recurrent wound disc harge. - proceed to OR today for revision - AEDs per primary team or Neurology Sami Maldonado MD Neurosurgery, PGY-2 On-call resident pager [phone] 7:33 AM 10/10/2017 Dallin Deshpande MD - [...] agent? No Dallin Bourgeois MD Neurosurgery PGY1 [id number] rVenita enrique PA-C - 10/09/2017 12:57 PM PDT Trauma Acute Care - Progress Note Name: DIOGENES TEPMLE HPI: Diogenes Temple is a67 y.o. male [...] - patient unable to come out of SHOPPING INVESTIGATOR for now - Will likely need for [...] previous cranioplasty site. Venita Pruitt PA-[place] [phone] [facility] [place] [address] [place] [facility] [place] [address] Associated attestation - Chaz Hernandez MD - 10/09/2017 3:04 PM PDTI saw and examined th e patient today with Venita Pruitt PA-C, and agree with the assessement and plan as outlined in her note. Plan takeback with NSG, we will place Gabriel-oconnor feeding tube at that time. Chaz Hernandez MD, FACS Film Loader, Trauma, Critical Care and Acute Care Surgery LeoamaliaSherine Madiha, [facility] - 10/08/2017 6:21 AM PDTFormatting of [...] - patient unable to come out of SHOPPING INVESTIGATOR for now - Will likely need for [...] [place] [phone] [facility] [address] [facility] [address] [phone] Associated attestation - Chaz Hernandez MD - 10/08/2017 12:16 PM PDTI saw and examined th e patient today with KESHAWN Martin, and agree with the assessement and plan a s outlined in her note. No acute events. Seems to be slowly improving from MS. Appreciate ps ychiatry recs. Chaz Hernandez MD, FACS Film Loader, Trauma, Critical Care and Acute Care [...] - patient unable to come out fo SHOPPING INVESTIGATOR for now - Will likely need for [...] [place] [id number] [facility] [place] [address] [facility] [address] [phone] Associated attestation - Chaz Hernandez MD - 10/07/2017 11:15 AM PDTI saw and examined th e patient today with KESHAWN Martin, and agree with the assessement and plan a s outlined in her note. Will consider changing to bolus TF. Plan Gabriel-oconnor tube next week. Chaz Hernandez MD, FACS Film Loader, Trauma, Critical Care and Acute Care [...] p atient unable to come out fo SHOPPING INVESTIGATOR for now Resolved or chronic issues/Plan: #Previous [...] issues, including restraints. Venita Pruitt PA[place] [phone] [facility] [address] [place] [address] [phone] Associated attestation - Em Cunningham MD - 10/17/2017 10:13 AM PDTI was present and rou nded with the Advanced Practice Provider today . I interviewed and examined the patient. I reviewed the history, as documented today. I agree with the ASHLEY assessment and plan. TBI has remained stable. On lovenox. Will continue haldol per psych.. EM CUNNINGHAM MD [facility] [address] [place] [address] [address] [place] [address] Venita Pruitt PA-C - 10/05/2017 8:38 AM [...] p atient unable to come out fo SHOPPING INVESTIGATOR for now Resolved or chronic issues/Plan: #Previous [...] by patient, but wound remains duke n/dry/intact. [place] removed 09/17. #Left hemothorax Chest tube placed [...] issues, including restraints. Venita Pruitt PA-C [place] [phone] [facility] [address] [place] [facility] [place] [address] [phone] Associated attestation - Shlomo Bravo MD - 10/06/2017 7:28 AM PDTFormatting of this note m ight be different from the original. I saw and examined Diogenes Temple ([id number]) with the TRAUMA team on 10/05/2017. I [...] incen tive spirometry for pulmonary toliet. manager er for disposition planning and placement. Shlomo Bravo MD Lace Cutter Division of Trauma and Critical Care [facility] MedicineVenita PA-C - 10/04/2017 6:36 AM PDTFormatting of [...] (baseline from previous TBI ) Neck: in Dudley collar Respiratory: CTA b.l CV: RRR GI: [...] p atient unable to come out fo SHOPPING INVESTIGATOR for now Resolved or chronic issues/Plan: #Previous [...] issues, including restraints. Venita Pruitt PA-C [place] [phone] [place] [phone] [facility] [address] [place] [facility] [phone] Associated attestation - Fidelina Shields MD - [...] and only enteral access. Fidelina Shields MD Film Loader Division of Trauma, Critical Care and Acute Care Surgery Office: [phone] Pager: [phone] Leonor Torres ACNP - 10/03/2017 3:13 PM [...] (baseline from previous TBI ) Neck: in Dudley collar Respiratory: CTA bilaterally, no distress CV: [...] p atient unable to come out fo SHOPPING INVESTIGATOR for now Resolved or chronic issues/Plan: Previous [...] PDTAttending: I saw and examined Diogenes Temple ([id number]) with CB Hair on morning rounds 10/03 and agree with the assessment and plan as outlined in this note and participated in the planning of care. Mental status is slightly better, remains sedated but he is interactive and at least somewh at oriented. Enteral nutrition advancing and, as approaches goal, will turn TPN off. Place ment remains a significant issue. Fidelina Shields MD Film Loader Division of Trauma, Critical Care and Acute Care Surgery Office: [phone] Pager: [phone] July Harp PA-C - 10/03/2017 12:58 PM [...] the C-collar when in bed then the SHOPPING INVESTIGATOR when out of bed until 12/01/17. JULY HARP PA-C [facility] [address] [place] [address] Associated attestation - Magdiel Stock MD - 10/04/2017 6:02 PM PDTI performed a history a nd physical examination of the patient and discussed the management with the advanced practi ce provider, July Harp PA-C. I reviewed the advanced practice provider's note and agree w ith the plan of care as documented. Continue cervical collar and SHOPPING INVESTIGATOR for 3 months to ensure fracture healing and prevent development of post-fracture cervical kyphosis. Magdiel Stock MD Film Loader Department of Neurological Surgery [facility] Sherine Sarmiento, [facility] - 10/02/2017 12:54 PM PDTFormatting of [...] (baseline from previous TBI ) Neck: in Dudley collar Respiratory: CTA bilaterally, lungs symmetrical, equal chest wall rise, no retractions CV: RRR GI: non tender, soft, active BS, last BM 09/30 : Patient voiding without difficulty Extremities: no peripheral edema, wiggles toes and toes pink and well perfused Musculoskeletal: 5/5 seed sorter strength on right, 3/5 seed sorter strength on left FEN: on TPN, transitioning [...] AMS & delirium - numerous evaluations by LOG CUT OFF SAWYER with trials of PO - now s/p [...] . - C-collar at all times, use SHOPPING INVESTIGATOR when OOB - Follow-up with Neurosurgery on 10/21 with repeat X-rays #Blunt abdominal trauma #Splenic laceration S/p laparotomies x2. Fascia closed 09/02 Wound vac removed by patient, but wound remains duke n/dry/intact. [place] removed 09/17. #Left hemothorax Chest tube placed [...] will decrease scheduled haldol. [place] Pg [phone] Associated attestation - Fidelina Shields MD - 10/02/2017 4:40 PM PDTAttending: I saw and examined Diogenes Temple ([id number]) with KESHAWN Alexander on mornin g rounds [...] drawn back to midline position. May need custodial enteral access , but is ~4 weeks s/p damage control laparotomy and risk is higher now than it will be in 7- 14 days and if swallow is not improving then will place prior to DC Fidelina Shields MD Film Loader Division of Trauma, Critical Care and Acute Care Surgery Office: [phone] Pager: [phone] Sherine Sarmiento AGACNP - 10/01/2017 7:27 AM [...] (baseline from previous TBI ) Neck: in Dudley collar Respiratory: CTA bilaterally, lungs symmetrical, equal chest wall rise, no retractions CV: RRR GI: non tender, soft, active BS, last BM 09/30 : Patient voiding without difficulty Extremities: no peripheral edema, wiggles toes and toes pink and well perfused Musculoskeletal: 5/5 seed sorter strength on right, 3/5 seed sorter strength on left FEN: on TPN Heme/ID: [...] AMS & delirium - numerous evaluations by LOG CUT OFF SAWYER with trials of PO - now s/p modified barium swallow x2 which indicates aspiration - continue NPO - LOG CUT OFF SAWYER reports that patient working on tongue strength [...] . - C-collar at all times, use SHOPPING INVESTIGATOR when OOB - Follow-up with Neurosurgery on 10/21 with repeat X-rays #Blunt abdominal trauma #Splenic laceration S/p laparotomies x2. Fascia closed 09/02 Wound vac removed by patient, but wound remains duke n/dry/intact. [place] removed 09/17. #Left hemothorax Chest tube placed [...] trauma team and [place]g [phone] Associated attestation - Fidelina Shields MD - 10/02/2017 4:40 PM PDTAttending: I saw and examined Diogenes Temple ([id number]) with KESHAWN Alexander on mornin g rounds 10/01/17 and agree with the assessment and plan as outlined in this note and partic ipated in the planning of care. Will trial DHT placement today, CT head unchanged. Suspect somnolence is medication side ef fect and, if persistent, may need to wean antipsychotic doses. Fidelina Shields MD Film Loader Division of Trauma, Critical Care and Acute Care Surgery Office: [phone] Pager: [phone] Christian Kelley PA-C - 09/30/2017 12:21 PM [...] #30 Abx: None Procedures: 08/31/17: Left thoracostomy 5/6/18: [...] Fixed and dilated on left Neck: in Dudley collar Respiratory: CTA bilaterally, lungs symmetrical, equal chest wall rise, no retractions CV: RRR GI: non tender, soft, active BS, last BM 09/30 : Patient voiding without difficulty Extremities: no peripheral edema, wiggles toes and toes pink and well perfused Musculoskeletal: 5/5 seed sorter strength on right, 3/5 seed sorter strength on left FEN: on TPN Heme/ID: [...] AMS & delirium - numerous evaluations by LOG CUT OFF SAWYER with trials of PO - now s/p modified barium swallow x2 which indicates aspiration - continue NPO - LOG CUT OFF SAWYER reports that patient working on tongue strength [...] . - C-collar at all times, use SHOPPING INVESTIGATOR when OOB - Follow-up with Neurosurgery on [...] PDTAttending: I saw and examined Diogenes Temple ([id number]) with Christian Kelley PA-C on morning rounds 09/30 and agree with the assessment and plan as outlined in this note and participated in the planning of care. Mentally slower this morning, but non-focal. Received haldol overnight for sleep. Repeat head CT was unchanged so suspect etiology of slowed responsiveness is the antipsychotic dose . LOG CUT OFF SAWYER believes that, once collar off, may be able to take PO more effectively and thus will hold off on surgical feeding access. TPN is a temporary solution and if patient remains kaye nable will trial DHT tomorrow. Working with psychiatry for medication recommendations. Fidelina Shields MD Film Loader Division of Trauma, Critical Care and Acute Care Surgery Office: [phone] Pager: [phone] July Harp PA-C - 09/30/2017 8:23 AM PDTBrief Neurosurgery Wound Check: Wound is dry, without erythema, not fluctuant. No acute swelling. Nylon in place. Will plan to follow peripherally for wound checks and remove nylons on 10/09. JULY HARP PA-C [facility] [address] [place] [address] Christian Begum PA-C - 09/29/2017 7:15 AM [...] and EOMs intact to exam Neck: in Dudley collar Respiratory: CTA bilaterally, lungs symmetrical, equal [...] AMS & delirium - numerous evaluations by LOG CUT OFF SAWYER with trials of PO - now s/p [...] . - C-collar at all times, use SHOPPING INVESTIGATOR when OOB - Follow-up with Neurosurgery on [...] PDTAttending: I saw and examined Diogenes Temple ([id number]) with Christian Kelley PA-C on morning rounds 09/29 and agree with the assessment and plan as outlined in this note and participated in the planning of care. Late entry for 09/29/17. Persistent alterations in conscious and dysphagia. Hopefully with ongoing speech therapy a nd when clear to take c-collar off, will improve ability to take PO. While TPN is not an opt imal custodial strategy, would prefer not to place surgical feeding tube if possible given r elatively recent damage control laparotomy and high risk of Mr. Temple pulling it out. Have tried DHT several times and it seems to worsen delirium and he pulls it out frequently. Tit ration of haldol in conjunction with psychiatry. Fidelina Shields MD Film Loader Division of Trauma, Critical Care and Acute Care Surgery Office: [phone] Pager: [phone] Christian Kelley PA-C - 09/28/2017 1:01 PM [...] he said, who, ariel? And then the STONE POLISHER MACHINE helped him make a call to her. [...] and EOMs intact to exam Neck: in Dudley collar Respiratory: CTA bilaterally, lungs symmetrical, equal [...] very agitated today. - EKG today with [place] QTc calculated to be 428 - optimize [...] AMS & delirium - numerous evaluations by LOG CUT OFF SAWYER with trials of PO - now s/p [...] . - C-collar at all times, use SHOPPING INVESTIGATOR when OOB - Follow-up with Neurosurgery on 10/21 with repeat X-rays #Blunt abdominal trauma #Splenic laceration S/p laparotomies x2. Fascia closed 09/02 Wound vac removed by patient, but wound remains duke n/dry/intact. [place] removed 09/17. #Left hemothorax Chest tube placed [...] more toda y. Chaz Hernandez MD, FACS Film Loader, Trauma, Critical Care and Acute Care Surgery Chaz Hernandez MD - 09/28/2017 10:13 AM PDTTrauma Staff Seen and examined this AM with team. I have concerns abotu behaviour, as he is consistently threatening RN and ancillary staff, even attempting swings. Behavior seems worse at night. I would favor increasing night time Haldol dose, and following EKGs. Chaz Hernandez MD, FACS Film Loader, Trauma, Critical Care and Acute Care [...] Dallin Bourgeois MD Neurosurgery PGY1 | Pager #[phone] Christian Begum PA-C - 09/27/2017 7:31 AM [...] able to have a linear conversation briefly LOG CUT OFF SAWYER requesting repeat barium swallow Current meds: I [...] incision healing , suture c/d/I Neck: in SHOPPING INVESTIGATOR Respiratory: unlabored on room air, lungs symmetrical, [...] AMS & delirium - numerous evaluations by LOG CUT OFF SAWYER with trials of PO - now s/p [...] . - C-collar at all times, use SHOPPING INVESTIGATOR when OOB - Follow-up with Neurosurgery on [...] cotinue TPN for now. EM CUNNINGHAM MD [facility] [address] [place] [address] Christian Kelley PA-C - 09/26/2017 6:48 AM [...] posterior scalp crani incision c/d/I Neck: in Dudley collar Respiratory: unlabored on room air CV: [...] AMS & delirium - numerous evaluations by LOG CUT OFF SAWYER with trials of PO - now s/p [...] . - C-collar at all times, use SHOPPING INVESTIGATOR when OOB - Follow-up with Neurosurgery on 10/21 with repeat X-rays #Blunt abdominal trauma #Splenic laceration S/p laparotomies x2. Fascia closed 09/02 Wound vac removed by patient, but wound remains duke n/dry/intact. [place] removed 09/17. #Left hemothorax Chest tube placed [...] Continue NPO and TPN. EM CUNNINGHAM MD [facility] [address] [address] [place] [address] Christian Kelley PA-C - 09/25/2017 7:49 AM [...] HEENT: EOMs intact to exam Neck: in SHOPPING INVESTIGATOR brace Respiratory: unlabored on room air CV: [...] AMS & delirium - numerous evaluations by LOG CUT OFF SAWYER with trials of PO - now s/p [...] . - C-collar at all times, use SHOPPING INVESTIGATOR when OOB - Follow-up with Neurosurgery on 10/21 with repeat X-rays #Blunt abdominal trauma #Splenic laceration S/p laparotomies x2. Fascia closed 09/02 Wound vac removed by patient, but wound remains duke n/dry/intact. [place] removed 09/17. #Left hemothorax Chest tube placed [...] LFTS wnl. Continue TPN. EM CUNNINGHAM MD [facility] [address] [place] [address] Christian Kelley PA-C - 09/24/2017 11:07 AM [...] with agitation Having difficulty swallowing again - LOG CUT OFF SAWYER to re-eval and obtain barium swallow Current [...] HEENT: EOMs intact to exam Neck: in SHOPPING INVESTIGATOR brace Respiratory: CTA bilaterally, lungs symmetrical, equal chest wall rise, no retractions CV: RRR GI: non distended, last BM 09/23 : good urine output Extremities: SCD's in place, no peripheral edema, wiggles toes and toes pink and well perfu sed Musculoskeletal: 5/5 strength in bilateral seed sorter (but with slightly weaker on left) , [...] PRN seroquel dose QHS for insomnia/restlessness at [facility] - Haldol 5mg q12hr prn for severe [...] likely 2/2 AMS & delirium - Failed LOG CUT OFF SAWYER eval 09/19 & 09/20, made NPO & dobhoff reinserted 09/21 but pulled overnight - Per LOG CUT OFF SAWYER on 09/21, ok for therapeutic pureed with [...] . - C-collar at all times, use SHOPPING INVESTIGATOR when OOB - Follow-up with Neurosurgery on [...] Start abx for dehiscence. EM CUNNINGHAM MD [facility] [address] [place] [address] Ginette Campos PA-C - 09/24/2017 9:31 AM [...] 4 extremities Unable to assess drift. Motor: Trimming Press Operator Bicep Tricep Delt R 5 5 5 [...] further questions or concerns. Ginette Campos PA-C [facility] [address] [place] [address] cGabriel Atkins stephanie Cleary, AGACNP - 09/23/2017 6:32 [...] hiscence, draining minimal serosang fluid Neck: in SHOPPING INVESTIGATOR brace Respiratory: unlabored on room air CV: [...] PRN seroquel dose QHS for insomnia/restlessness at [facility] - Repeat ECG 09/22 with QTc WNL. [...] likely 2/2 AMS & delirium - Failed LOG CUT OFF SAWYER eval 09/19 & 09/20, made NPO & dobhoff reinserted 09/21 but pulled overnight - Per LOG CUT OFF SAWYER on 09/21, ok for therapeutic pureed with [...] . - C-collar at all times, use SHOPPING INVESTIGATOR when OOB - Follow-up with Neurosurgery on [...] dysphagia & delir ium improves Sherine Sarmiento, [facility] [place]g [phone] Dallin Deshpande MD - 09/22/2017 8:03 AM [...] Dallin Bourgeois MD Neurosurgery PGY1 | Pager #[phone] [facility] - 09/22/2017 6:52 AM PDTFormatting of [...] 24hr events: - Therapeutic purees initiated by LOG CUT OFF SAWYER yesterday - Trickle feeds via Dobbhoff, pt pulled Dobbhoff yesterday evening- not replaced - LEAD HANDLER called around 2130 for new left facial droop (see separate notes), CT revealed increa se in SDH from 12 to 17mm with no change in midline shift. [facility] - NSG and stroke team [...] sluggish. Slight left facial droop Neck: in Dudley collar Respiratory: unlabored on room air CV: [...] PRN seroquel dose QHS for insomnia/restlessness at [facility]- - Repeat ECG 09/22 with Q Tc WNL. - Haldol 5mg q12hr prn for severe agitation #Substance abuse, concern for Alcohol withdrawal - CIWA discontinued 09/08, not scoring. - Thiamine & folate started 09/21 #Dysphagia, risk for aspiration #Protein calorie malnutirtion - likely 2/2 AMS & delirium - Failed LOG CUT OFF SAWYER eval 09/19 & 09/20, made NPO & dobhoff reinserted 09/21 but pulled overnight - Per LOG CUT OFF SAWYER on 09/21, ok for therapeutic pureed with [...] . - C-collar at all times, use SHOPPING INVESTIGATOR when OOB - Follow-up with Neurosurgery on 10/21 with repeat X-rays #Blunt abdominal trauma #Splenic laceration S/p laparotomies x2. Fascia closed 09/02 Wound vac removed by patient, but wound remains duke n/dry/intact. [place] removed 09/17. #Left hemothorax Chest tube placed [...] when dysphagia & delirium improves Sherine Sarmiento, [place] [phone] Associated attestation - Nubia Nieto MD,MPH - [...] Trauma, Critical Care & Acute Care Surgery [facility] [phone] Sami Black Merle - 09/21/2017 10:25 PM [...] in the morning. Plan: -neuro checks; page [phone] for any decline in neurological examination -pain control -Hard C collar at all times and place SHOPPING INVESTIGATOR prior to mobilizing OOB. Anticipated duration of Collar/SHOPPING INVESTIGATOR is 12 weeks -repeat CT head for any new decline in neurological exam and page [phone] -NPO at midnight tonight -please hold tonight's planned dose of Lovenox -further recommendations in the morning Sami Black MD, PhD PGY-3 Resident Neurosurgery [id number] signed by Sami Black at 09/21/2017 10:50 PM [facility] - 09/21/2017 7:10 AM PDTFormatting of [...] Provena placem ent 24hr events: - Failed LOG CUT OFF SAWYER eval again yest morning, continued NPO - [...] reactive. Dobbhoff tube in place Neck: in Dudley collar Respiratory: unlabored on room air CV: [...] likely 2/2 AMS & delirium - Failed LOG CUT OFF SAWYER eval 09/19 & 09/20, made NPO & dobhoff reinserted yesterday - Trickle feeds started this am at 20ml/hr, increase very slowly by 10ml every 12 hrs to go al of 75 due to hx of mesenteric hematomas and previous inability to tolerate TF - Per LOG CUT OFF SAWYER today, ok for therapeutic pureed with nectar [...] . - C-collar at all times, use SHOPPING INVESTIGATOR when OOB - Follow-up with Neurosurgery on [...] & delirium [place] [phone] Associated attestation - Fidelina Shields MD - 09/21/2017 9:36 PM PDTAttending: I saw and examined Diogenes Temple ([id number]) with KESHAWN Alexander on mornin g rounds [...] enough to re-trial PO. Fidelina Shields MD Film Loader Division of Trauma, Critical Care and Acute Care Surgery Office: [phone] Pager: [phone] Sherine Sarmiento AGACNP - 09/20/2017 7:41 AM [...] haldol given yesterday afternoon for agitation - LOG CUT OFF SAWYER paged to re-eval in afternoon after concern for aspiration, made NPO by LOG CUT OFF SAWYER - DARNELL SOLANO Current meds: I have [...] right pupil 3 and reactive Neck: in Dudley collar Respiratory: unlabored on room air CV: [...] thick/pureed d iet. Made NPO yesterday by LOG CUT OFF SAWYER after concern for aspiration. This is likely 2/2 waxing & wan ing delirium & AMS - LOG CUT OFF SAWYER re-eval today recommend continue NPO d/t overt clinical signs of aspiration - Place Dobbhoff tube and restart feeds, slowly progress to goal - Stop TPN when tolerating tube feeds - LOG CUT OFF SAWYER will follow closely, as his AMS improves [...] . - C-collar at all times, use SHOPPING INVESTIGATOR when OOB - Follow-up with Neurosurgery on [...] & delirium [place] [phone] Associated attestation - Fidelina Shields MD - 09/20/2017 9:34 PM PDTAttending: I saw and examined Diogenes Temple ([id number]) with KESHAWN Alexander on mornin g rounds [...] dispo planning when able. Fidelina Shields MD Film Loader Division of Trauma, Critical Care and Acute Care Surgery Office: [phone] Pager: [phone] Mary Medrano MD,MPH - 09/19/2017 6:22 AM [...] fracture Hospital Day #19 Abx: None Procedures: 5/5/18: Left thoracostomy 09/01/17: Damage control laparotomy: gastrocutaneous fistula takedown, Abthera placement 09/01/17: Selective bilateral internal iliac artery angiograms 09/02/17: Second-look laparotomy: splenic hemorrhage control, fascial closure, Provena placem ent 24hr events: Pulled out DHT overnight, not replaced Diet downgraded from thin to thick liquids by LOG CUT OFF SAWYER Current meds: I have independently reviewed current [...] intact, small Right fluctuant pseudomeningocele Neck: in Dudley collar Respiratory: unlabored on room air CV: [...] DHT on09/19. - Cleared for diet by LOG CUT OFF SAWYER, tolerating purees, 749 Calories yesterday - Restart Calorie count: if taking >700 again will be OK for full po diet, otherwise replac e DHT and restart TF - Stop TPN tomorrow regardless - Still considering repeat CT abdomen/pelvis #Dysphagia DHTreplaced overnight 09/07. TF held due to emesis and possible ileus, aspiration risk. DH T pulled overnight on 09/18 - LOG CUT OFF SAWYER as able Resolved or chronic issues/Plan: #BIG 3 TBI #Right synthetic cranioplasty Neurosurgery consulted. Non-operative management. Last head CT 09/12 stable. Expected pseudo meningocele. Left-sided deficits consistent with baseline. - Stat head CT for any neurologic decline #C7 bilateral lamina fractures #C6-T2 spinous process fractures Neurosurgery consulted. Non-operative management. Upright cervical X-rays completed on 09/14 . - C-collar at all times, use SHOPPING INVESTIGATOR when OOB - Follow-up with Neurosurgery on [...] M.D., M.P.H. Neurological Surgery Resident PGY-1 Pager: [phone] Associated attestation - Fidelina Shields MD - 09/19/2017 1:36 PM PDTAttending: I saw and examined Diogenes Temple ([id number]) with the residents on morning rounds 09/19/17 and agree with the assessment and plan as outlined in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 | UNIT [...] + + + + | EXPIRATION | [id number] | | [facility] | | | DATE [...] + + + + | BLOOD | [id number] | | [facility] | | | PRODUCT [...] + + + + + | [facility] | [address] | [place] [address] | | | SERVICES, | [address] [...] [facility] | [address] | [place] [address] | | | NATALEE WORTHINGTON | VILMA [...] [facility] | [address] | [place] [address] | | | SERVICES, | [address] [...] LABORATORY | [address] | [place] [address] | | | SERVICES, | [address] [...] + + + + + | [facility] | [address] | [place] [address] | | | SERVICES, CORE | PARK [...] OF | [address] | [place], [place] | | | CARDIOLOGY | [address] | [address] | | + + + + + [...] + + + + + | [facility] | [address] | [place] [address] | | | SERVICES, CORE | [address] [...] and new reporting units as of | [facility] | | 09/30/2013. | LABORATORY | | | NATALEE WORTHINGTON | + + + + + + + + | Performing | Address | City/State/Zipcode | Phone Number | | Organization | | | | + + + + + | [facility] | [address] | [place] [address] | | | SERVICES, NATALEE | VILMA [...] + | [facility] - | [address] | [place] [address] | | | [place] | | | [...] [facility] | [address] | [place] [address] | | | NATALEE WORTHINGTON | VILMA [...] [facility] | [address] | [place] [address] | | | SERVICES, CORE | PARK [...] | | | LABORATORY | | | ENGLISH | | | SERVICES, | | | [...] | + + + + + | [facility] | [address] | [place] [address] | | | SERVICES, CORE | [address] | | | + + + + + MAGNESIUM, PLASMA (11/04/2017 5:59 AM PDT) + +-------+ + + + | Component | Value | Ref Range | Performed | Pathologist | | | | | At | Signature | + +-------+ + + + | MAGNESIUM,P | 2.1 | 1.6 - 2.6 mg/dL | [facility] [...] LABORATORY | [address] | [place] [address] | | | SERVICES, NATALEE | VILMA [...] + | [facility] | [address] | [place] [address] | | | NATALEE WORTHINGTON | [address]ARK [...] | | | LABORATORY | | | ENGLISH | | | SERVICES, | | | [...] + + + + + | [facility] | [address] | [place] [address] | | | SERVICES, CORE | [address] [...] LABORATORY | [address] | [place] [address] | | | SERVICES, CORE | [address] [...] | | | LABORATORY | | | ENGLISH | | | SERVICES, | | | [...] the MDRD equation recommended by the | [facility] | | National Kidney Disease Education [...] | + + + + + | [facility] | [address] | [place] [address] | | | ELIN, NATALEE | VILMA [...] OF | [address] | [place], [place] | | | CARDIOLOGY | [address] | [address] | | + + + + + [...] + + + + + | [facility] | [address] | [place] [address] | | | SERVICES, CORE | V[address] [...] | | | LABORATORY | | | ENGLISH | | | SERVICES, | | | [...] + + + + + | [facility] | [address] | [place] [address] | | | SERVICES, CORE | [address] | | | + + + + + CT STEREOTACTIC HEAD WO CONTRAST (10/31/2017 5:58 PM PDT) + + | Specimen | + + | | + + + + + | Narrative | Performed At | + + + | EXAM: CT HEAD WITHOUT CONTRAST HISTORY: Surgical planning for | [facility] | | upcoming cranioplasty. History of multiple [...] Note | + + | Service Account, [employer] Res In Interface - 10/31/2017 8:22 PM [...] Orta MD 10/31/2017 8:21 PM | |Preliminary: aGge Solomon MD 10/31/2017 8:19 PM | |Dictation [...] OF | [address] | [place], [place] | | | CARDIOLOGY | [address] | [address] | | + + + + + [...] | | | LABORATORY | | | ENGLISH | | | SERVICES, | | | [...] | + + + + + | [facility] | [address] | [place] [address] | | | SERVICES, CORE | [address] | | | + + + + + MAGNESIUM, PLASMA (10/31/2017 5:27 AM PDT) + +-------+ + + + | Component | Value | Ref Range | Performed | Pathologist | | | | | At | Signature | + +-------+ + + + | MAGNESIUM,P | 1.9 | 1.6 - 2.6 mg/dL | [facility] [...] [facility] | [address] | [place] [address] | | | SERVICES, NATALEE | VILMA [...] - [facility] | [address] | [place], [place] | | | [facility] | [address] | [address] | | | TESTS | | | | + + + + + MAGNESIUM, PLASMA (10/30/2017 5:29 AM PDT) + +-------+ + + + | Component | Value | Ref Range | Performed | Pathologist | | | | | At | Signature | + +-------+ + + + | MAGNESIUM,P | 1.8 | 1.6 - 2.6 mg/dL | [facility] | | | LISA | | | [...] [facility] | [address] | [place] [address] | | | SERVICES, CORE | PARK [...] | | | LABORATORY | | | ENGLISH | | | SERVICES, | | | [...] | + + + + + | [facility] | [address] | [place] [address] | | | ELIN, NATALEE | PARK [...] Note | + + | Service Account, Andera In Interface - 10/29/2017 12:13 PM PDT [...] | [address] | [place], [place] | | | [facility] CARE | [address] | [address] | | | TESTS | | | [...] + + + + + | [facility] | [address] | [place] [address] | | | SERVICES, CORE | VILMA [...] | | | LABORATORY | | | ENGLISH | | | SERVICES, | | | [...] | + + + + + | [facility] | [address] | [place] [address] | | | SERVICES, CORE | VILMA [...] (H) | 70 - 99 mg/dL | [facility] - | | | GLUCOSE, | [...] + + + | [facility] | [address] | [place], [place] | | | [facility] | [address] | [address] | | | TESTS | | | [...] OF | [address] | [place], [place] | | | CARDIOLOGY | [address] | [address] | | + + + + + CAPILLARY BLOOD GLUCOSE (NO CHG), POC (10/28/2017 12:00 PM PDT) + +---------+ + + + | Component | Value | Ref Range | Performed | Pathologist | | | | | At | Signature | + +---------+ + + + | BLOOD | 141 (H) | 70 - 99 mg/dL | [facility] - | | | GLUCOSE, | [...] [facility] | [address] | [place], [place] | | | GL[facility] GENAO OF [facility] | [facility] | [address] | | | TESTS | | | [...] | [address] | [place], [place] | | | [facility] | [address] | [address] | | | TESTS | | | [...] | + + + + + | [facility] | [address] | [place] [address] | | | SERVICES, CORE | PARK [...] + | [facility] - | [address] | [place] [address] | | | [place] | | | [...] [facility] | [address] [address] | [place] [address] | | | NATALEE WORTHINGTON | PARK [...] + + + + + | [facility] | [address] | [place] [address] | | | SERVICES, CORE | VILMA [...] [facility] | [address] | [place] [address] | | | SERVICES, CORE | PARK [...] | | | LABORATORY | | | ENGLISH | | | SERVICES, | | | [...] | + + + + + | [facility] | [address] | [place] [address] | | | NATALEE WORTHINGTON | VILMA [...] | + + + + + | [facility] | [address] | [place] [address] | | | NATALEE WORTHINGTON | PARK [...] | [address] | [place], [place] | | | [place], POINT OF CARE | [address] | [address] | | | TESTS | | | [...] | [address] | [place], [place] | | | [facility] | [address] | [address] | | | TESTS | | | [...] Note | + + | Service Account, [employer] In Interface - 10/28/2017 9:21 AM [...] At | + + + | EXAM: IA CHEST PICC LINE CHECK HISTORY: picc done [...] Interface - 10/27/2017 6:29 PM PDT EXAM: IA CHEST | | PICC LINE CHECK HISTORY: [...] | | + +---------+ + + | [facility] | | | | | [...] and TPN Procedure | | | location: Unit:[facility] Room: 4 Providers: Attending name: | [...] correct | | | patient, procedure, equipment, support clerk and site/side marked as | | | [...] vein. Catheter lot number: | | | [id number] with a length of 55 cm was [...] - [facility] | [address] | [place], [place] | | | [facility] | [address] | [address] | | | TESTS | | | [...] OF | [address] | [place], [place] | | | CARDIOLOGY | [address] | [address] | | + + + + + CAPILLARY BLOOD GLUCOSE (NO CHG), CITLALY (10/27/2017 6:10 AM PDT) + +-------+ + [...] [facility] | [address] | [place], [place] | | | GL[facility]IA GENAO OF [facility] | [address] | [address] | | | TESTS | | | [...] | Reference range change effective 8/15/17. | [facility] | | | LABORATORY | | | SERVICES, CORE | + + + + + + + + | Performing | Address | City/State/Zipcode | Phone Number | | Organization | | | | + + + + + | [facility] | [address] | [place] [address] | | | SERVICES, CORE | PARK [...] | | | LABORATORY | | | ENGLISH | | | SERVICES, | | | [...] | + + + + + | [facility] | [address] | [place] [address] | | | SERVICES, CORE | PARK [...] (H) | 70 - 99 mg/dL | [facility] - | | | GLUCOSE, | [...] | [address] | [place], [place] | | | [facility] | [facility] | [address] | | | TESTS | | | | + + + + + CAPILLARY BLOOD GLUCOSE (NO CHG) POC (10/26/2017 11:58 AM PDT) + +---------+ [...] - [facility] | [address] | [place], [place] | | | GLORIA GENAO OF CARE | [facility] | [address] | | | TESTS | | | [...] (H) | 70 - 99 mg/dL | [facility] - | | | GLUCOSE, | [...] + + + + + | [facility] PCIKETT | [address] | [place], [place] | | | [facility] | [address] | [address] | | | TESTS | | | [...] [facility] | [address] | [place] [address] | | | SERVICES, CORE | PARK [...] | | | LABORATORY | | | ENGLISH | | | SERVICES, | | | [...] the MDRD equation recommended by the | [facility] | | National Kidney Disease Education [...] | + + + + + | [facility] | [address] | [place] [address] | | | SERVICES, [facility] | [address] | [...] - [facility] | [address] | [place], [place] | | | [facility] | [address] | [address] | | | TESTS | | | [...] | | | LABORATORY | | | ENGLISH | | | SERVICES, | | | [...] the MDRD equation recommended by the | [facility] | | National Kidney Disease Education [...] | + + + + + | [facility] | [address] | [place] [address] | | | SERVICES, CORE | VILMA [...] 87 | 70 - 99 mg/dL | [facility] - | | | GLUCOSE, | [...] | [address] | [place], [place] | | | [facility] | [address] | [address] | | | TESTS | | | [...] | + + + + + | [facility] | [address] | [place], [place] | | | CARDIOLOGY | [address] | [address] | | + + + + + [...] | [address] | [place], [place] | | | [facility] | [address] | [address] | | | TESTS | | | [...] + + + + | QTC-BABRAYDONTT | 458 | ms | [facility] [...] OF | [address] | [place], [place] | | | CARDIOLOGY | [address] | [address] | | + + + + + [...] + + + + + | [facility] | [address] | [place] [address] | | | SERVICES, CORE | VILMA [...] - | | | | | | [place] | | + + + + + + + + | Specimen | + + | Blood - Blood | | (substance) | + + + + + + + | Performing | Address | City/State/Zipcode | Phone Number | | Organization | | | | + + + + + | [facility] | [address] | [place] [address] | | | [place] | | | | + + + [...] | + + + + + | [facility] | [address] | [place] [address] | | | SERVICES, CORE | PARK [...] [facility] | [address] | [place] [address] | | | SERVICES, CORE | VILMA [...] | + + + + + | [facility] | [address] | [place] [address] | | | SERVICES, CORE | VILMA [...] [facility] | [address] | [place] [address] | | | SERVICES, CORE | PARK [...] | + + + + + | [facility] | [address] | [place] [address] | | | SERVICES, CORE | VILMA [...] [facility] | [address] | [place] [address] | | | SERVICES, CORE | PARK [...] + + + + + | [facility] | [address] | [place] [address] | | | SERVICES, CORE | VILMA [...] [facility] | [address] | [place] [address] | | | SERVICES, CORE | PARK [...] [facility] | [address] | [place] [address] | | | SERVICES, NATALEE | PARK [...] [facility] | [address] | [place] [address] | | | SERVICES, CORE | PARK [...] | | | LABORATORY | | | ENGLISH | | | SERVICES, | | | [...] | + + + + + | [facility] | [address] | [place] [address] | | | NATALEE WORTHINGTON | VILMA [...] | | | correct patient, procedure, equipment, support clerk and site/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 Catheter lot number: [id number] with a length of 55 | | [...] At | + + + | EXAM: IA CHEST 1 VIEW HISTORY: PICC placed-pt ready. [...] Interface - 10/24/2017 3:43 PM PDT EXAM: IA CHEST 1 | | VIEW HISTORY: PICC [...] + + | [facility] PICKETT | [address] | [place], [place] | | | [facility] | [address] | [address] | | | TESTS | | | [...] | | Surgical Critical Care, PGY7 Pager: [phone] | | + + + CAPILLARY BLOOD [...] | [address] | [place], [place] | | | [facility] | [address] | [address] | | | TESTS | | | [...] | [address] | [place], [place] | | | [facility] | [address] | [address] | | | TESTS | | | [...] | | | LABORATORY | | | ENGLISH | | | SERVICES, | | | [...] | + + + + + | [facility] | [address] | [place] [address] | | | SERVICES, CORE | VILMA [...] | + + + + + | [facility] | [address] | [place] [address] | | | SERVICES, CORE | VILMA [...] | [address] | [place], [place] | | | [facility] | [address] | [address] | | | TESTS | | | [...] + + + + + | [facility] | [address] | [place] [address] | | | SERVICES, CORE | PARK [...] | | | LABORATORY | | | ENGLISH | | | SERVICES, | | | [...] + + + + + | [facility] | [address] | [place] [address] | | | SERVICES, CORE | VILMA [...] OF | [address] | [place], [place] | | | CARDIOLOGY | [address] | [address] | | + + + + + IR GASTROSTOMY TUBE EXCHANGE (10/22/2017 2:42 PM PDT) + + | Specimen | + + | | + + + + + | Narrative | Performed At | + + + | Procedure: Gastrostomy tube exchange Primary attending | [facility] | | livestock agent: Shade Nix M.D. Preoperative diagnosis: | RADIOLOGY VOICE | | Malfunctioning Gastrostomy tube Postoperative diagnosis: Same | RECOGNITION | | Operations: Operation 1. Removal of existing Gastrostomy tube | | | over a guide wire Operation 2. Placement of 24 Turkish GABRIEL | | | gastrostomy over guide [...] a stiff glide wire the new 24 Turkish gastrostomy tube was | | | inserted. [...] Procedure: | | Gastrostomy tube exchangePrimary attending livestock agent: Shade Nix, | | BrynPreoperative diagnosis: Malfunctioning Gastrostomy tubePostoperative diagnosis: | | SameOperations:Operation 1. Removal of existing Gastrostomy tube over a guide | | wireOperation 2. Placement of 24 Turkish GABRIEL gastrostomy over guide wireNo sedation was [...] glide wire the | | new 24 Turkish gastrostomy tube was inserted. The position of [...] stiff g lide wire the new 24 Turkish | |gastrostomy tube was inserted. The position [...] Note | + + | Service Account, [employer] In Interface - 10/22/2017 10:34 AM [...] OF | [address] | [place], [place] | | | CARDIOLOGY | [address] | [address] | | + + + + + [...] + + + + + | [facility] | [address] | [place] [address] | | | SERVICES, CORE | VILMA [...] | | | LABORATORY | | | ENGLISH | | | SERVICES, | | | [...] | + + + + + | [facility] | [address] | [place] [address] | | | SERVICES, CORE | PARK [...] OF | [address] | [place], [place] | | | CARDIOLOGY | [address] | [address] | | + + + + + [...] | | | LABORATORY | | | ENGLISH | | | SERVICES, | | | [...] LABORATORY | [address] | [place] [address] | | | SERVICES, CORE | PARK [...] [facility] | [address] | [place] [address] | | | SERVICES, CORE | VILMA [...] | [facility] | [address] | [place], [place] | | | CARDIOLOGY | [address] | [address] | | + + + + + [...] + + + + + | [facility] | [address] | [place] [address] | | | SERVICES, CORE | PARK [...] | | | LABORATORY | | | ENGLISH | | | SERVICES, | | | [...] | + + + + + | [facility] | [address] | [place] [address] | | | SERVICES, CORE | VILMA [...] OF | [address] | [place], [place] | | | CARDIOLOGY | [address] | [address] | | + + + + + [...] | | | LABORATORY | | | ENGLISH | | | SERVICES, | | | [...] [facility] | [address] | [place] [address] | | | SERVICES, NATALEE | PARK [...] | + + + + + | [facility] | [address] | [place] [address] | | | NATALEE WORTHINGTON | VILMA [...] + + + | ANA LILIASHANKAR | 476 | ms | [facility] DEPT [...] | ECG | Electronically signed | | OHDANIELLE GEET | | | IMPRESSION | by: AJAY [...] OF | [address] | [place], [place] | | | CARDIOLOGY | [address] | [address] | | + + + + + [...] | | | LABORATORY | | | ENGLISH | | | SERVICES, | | | [...] [facility] | [address] | [place] [address] | | | SERVICES, CORE | PARK [...] + + + + + | [facility] | [address] | [place] [address] | | | SERVICES, CORE | PARK [...] | + + | Service Account, [employer]ost[employer] In Interface - 10/15/2017 3:58 PM PDT [...] OF | [address] | [place] | | | CARDIOLOGY | [facility] | [address] | | + + + + + CAPILLARY BLOOD GLUCOSE (NO CHG), POC (10/15/2017 6:01 AM PDT) + +---------+ + + + | Component | Value | Ref Range | Performed | Pathologist | | | | | At | Signature | + +---------+ + + + | BLOOD | 134 (H) | 70 - 99 mg/dL | [facility] - | | | GLUCOSE, | | [...] | [address] | [place], [place] | | | [facility]ARE | [address] | [address] | | | TESTS | | | [...] | + + + + + | [facility] | [address] | [place] [address] | | | NATALEE WORTHINGTON | VILMA [...] [facility] | [address] | [place], [place] | | | [facility] | [address] | [address] | | | TESTS | | | [...] + | [facility] GEET OF | [address] | [place], [place] | | | CARDIOLOGY | [address] | [address] | | + + + + + [...] [facility] | [address] | [place] [address] | | | NATALEE WORTHINGTON | VILMA [...] | | | LABORATORY | | | ENGLISH | | | SERVICES, | | | [...] | + + + + + | [facility] | [address] | [place] [address] | | | SERVICES, CORE | VILMA [...] | + + + + + | [facility] | [address] | [place] [address] | | | SERVICES, CORE | VILMA [...] | [address] | [place], [place] | | | [facility] GE[facility]O OF CARE | [address] | [address] | | | TESTS | | | [...] | [address] | [place], [place] | | | [facility] | [address] | [address] | | | TESTS | | | [...] + + + + + | [facility] | [address] | [place] [address] | | | SERVICES, NATALEE | VILMA [...] | | | LABORATORY | | | ENGLISH | | | SERVICES, | | | [...] | + + + + + | [facility] | [address] | [place] [address] | | | SERVICES, CORE | [address] | | | + + + + + OPERATION RECORD (10/12/2017 8:50 PM PDT) + + | Procedure Note | + + | Pilar Cotto MD - 10/12/2017 8:50 PM PDT Date of Service: 10/12/2017 | | Attending Surgeon: Chaz Hernandez MD Rug Receiving Clerk(s): Randell Dixon M.D., | | fellow. [...] Discussions were | | held with Mr. Diogeens Temple's sister, prior to the procedure, and [...] saline. We then | | placed a 19-Turkish drain deep into the abscess cavity, tracking [...] case. Pilar Cotto, | | MARIA TERESA Oleary/TAHIRLDD: 10/12/2017 19:50:06DT: 10/12/2017 20:50:54Job #: | | [id number] | + + X-RAY PORTABLE CHEST 1 VIEW (10/12/2017 7:50 PM PDT) + + | Specimen | + + | | + + + + + | Narrative | Performed At | + + + | EXAM: IA CHEST 1 VIEW HISTORY: Evaluate endotracheal tube [...] Interface - 10/13/2017 9:04 AM PDT EXAM: IA CHEST 1 | | VIEW HISTORY: Evaluate [...] | [address] | [place], [place] | | | [facility] | [address] | [address] | | | TESTS | | | [...] [facility] | [address] | [place] [address] | | | SERVICES, CORE | PARK [...] | | | LABORATORY | | | ENGLISH | | | SERVICES, | | | [...] the MDRD equation recommended by the | [facility] | | National Kidney Disease Education [...] [facility] | [address] | [place] [address] | | | SERVICES, CORE | PARK [...] | + + + + + | [facility] | [address] | [place] [address] | | | NATALEE WORTHINGTON | VILMA [...] OF | [address] | [place], [place] | | | CARDIOLOGY | [address] | [address] | | + + + + + [...] + + + + | QTC-SAURABHTT | 477 | ms | [facility] DEPT [...] OF | [address] | [place], [place] | | | CARDIOLOGY | [address] | [address] | | + + + + + [...] LABORATORY | [address] | [place] [address] | | | SERVICES, CORE | PARK [...] [facility] | [address] | [place] [address] | | | SERVICES, CORE | PARK [...] | | | LABORATORY | | | ENGLISH | | | SERVICES, | | | [...] | + + + + + | [facility] | [address] | [place] [address] | | | ELIN, NATALEE | [address] | | | + + + + + PROCEDURE NOTE (10/10/2017 10:00 PM PDT) + + + | Narrative | Performed At | + + + | Darius Link MD 10/12/2017 11:11 AM OPERATIVE REPORT | | | DATE OF OPERATION: 10/10/2017 ATTENDING SURGEON: 1. Dr. Hernandez | | | SUPERVISOR PRESS ROOM: 1. Darius Link MD INDICATIONS: Dysphagia | | | and need for custodial nutrition access PREOPERATIVE DIAGNOSIS: | | | 1.Dysphagia and need for custodial nutrition access | | | POSTOPERATIVE DIAGNOSIS: [...] Dictation to | | | follow. Arben Jackson, [id number] Chief Resident | | | Neurosurgery | [...] + + + + + | [facility] | [address] | [place] [address] | | | SERVICES, CORE | VILMA [...] | | | LABORATORY | | | ENGLISH | | | SERVICES, | | | [...] the MDRD equation recommended by the | [facility] | | National Kidney Disease Education [...] | + + + + + | [facility] | [address] | [place] [address] | | | SERVICES, CORE | PARK [...] [facility] | [address] | [place] [address] | | | NATALEE WORTHINGTON | [address] | | | + + + + + OPERATION RECORD (10/10/2017 12:40 PM PDT) + + | Procedure Note | + + | Magdiel Stock MD - 10/10/2017 12:40 PM PDT Date of Service: 10/10/2017 Attending | | Surgeon: Magdiel Stock MD Rug Receiving Clerk(s): Cecilia Jackson, | | . Preoperative [...] the note for this encounter.Sonal Nunez MDOHSU [id number] | | [place] [phone] Orina, MDFAH/MODLDD: | | 10/10/2017 11:52:15DT: 10/10/2017 12:40:41Job #: [id number] | | | | | |I was present for the critical portions of the procedure as described in the note for this encounter. | | | |Magdiel Stock MD | | | |Magdiel Stock MD | |[address] | |[address] [facility] | |[facility] | |[place] [address] | |[phone] | | | | | |Magdiel Stock MD | |FAH/MODL | | | | | | /[id number] | + + X-RAY ABDOMEN 1 VIEW [...] + | [facility] | [address] | [place] [address] | | | [place] | | | [...] | | AIRPORT - | | | [facility] | + + + + + + + + | Performing | Address | City/State/Zipcode | Phone Number | | Organization | | | | + + + + + | [facility] | [address] | [place] [address] | | | [place] | | | | + + + [...] 1+ Pseudomonas aeruginosa Refer to culture | [facility] - | | collected 10/10/17 at 0903 for susceptibilities No anaerobic | [facility] - | | organisms isolated Gram Stain: No squamous epithelial cells | [place] | | Many polymorphonuclear cells No organisms seen | | + + + + + + + + | Performing | Address | City/State/Zipcode | Phone Number | | Organization | | | | + + + + + | [facility] - | [address] | [place] [address] | | | [place] | | | | + + + [...] detected | AIRPORT - | | | [place] | + + + + + + + + | Performing | Address | City/State/Zipcode | Phone Number | | Organization | | | | + + + + + | [facility] | [address] | [place] [address] | | | [place] | | | [...] + | [facility] | [address] | [place] [address] | | | [place] | | | [...] Gram Stain: No squamous epithelial cells | [place] | | Many polymorphonuclear cells No organisms seen | | + + + + + + + + | Performing | Address | City/State/Zipcode | Phone Number | | Organization | | | | + + + + + | [facility] | [address] | [place] [address] | | | [place] | | | [...] + | [facility] | [address] | [place] [address] | | | [place] | | | | + + + [...] Gram Stain: No squamous epithelial cells | [place] | | Few polymorphonuclear cells No organisms seen | | + + + + + + + + | Performing | Address | City/State/Zipcode | Phone Number | | Organization | | | | + + + + + | [facility] | [address] | [place] [address] | | | [place] | | | | + + + + + CULTURE, TISSUE (10/10/2017 8:41 AM PDT) + + | Specimen | + + | Tissue - Head | | structure (body | | structure) | + + + + + | Narrative | Performed At | + + + | Culture Report: No growth No anaerobic organisms isolated | [facility] - | | Gram Stain: No squamous epithelial cells No polymorphonuclear | [facility] - | | cells No organisms seen | [place] | + + + + + + + + | Performing | Address | City/State/Zipcode | Phone Number | | Organization | | | | + + + + + | [facility] | [address] | [place], [place] [address] | | | [place] | | | | + + + [...] + | [facility] | [address] | [place] [address] | | | [place] | | | | + + + [...] Gram Stain: No squamous epithelial cells | [place] | | Moderate polymorphonuclear cells No organisms seen | | + + + + + + + + | Performing | Address | City/State/Zipcode | Phone Number | | Organization | | | | + + + + + | [facility] - | [address] | [place] [address] | | | [place] | | | | + + + [...] detected | AIRPORT - | | | [place] | + + + + + + + + | Performing | Address | City/State/Zipcode | Phone Number | | Organization | | | | + + + + + | [facility] | [address] | [place] [address] | | | [place] | | | | + + + [...] + | [facility] | [address] | [place] [address] | | | [facility] | | | | [...] + | [facility] | [address] | [place] [address] | | | [facility] | | | | [...] + | [facility] | [address] | [place] [address] | | | [facility] | | | | + [...] + | [facility] | [address] | [place] [address] | | | [place] | | | [...] Gram Stain: No squamous epithelial cells | [place] | | Moderate polymorphonuclear cells No organisms seen | | + + + + + + + + | Performing | Address | City/State/Zipcode | Phone Number | | Organization | | | | + + + + + | [facility] | [address] | [place] [address] | | | [place] | | | [...] + | [facility] | [address] | [place] [address] | | | [place] | | | | + + + [...] LABORATORY | [address] | [place] [address] | | | SERVICES, NATALEE | VILMA [...] | + + + + + | [facility] | [address] | [place] [address] | | | SERVICES, CORE | PARK [...] LABORATORY | [address] | [place] [address] | | | NATALEE WORTHINGTON | VILMA [...] | | | LABORATORY | | | ENGLISH | | | SERVICES, | | | [...] | + + + + + | [facility] | [address] | [place] [address] | | | NATALEE WORTHINGTON | VILMA [...] OF | [address] | [place], [place] | | | CARDIOLOGY | [address] | [address] | | + + + + + [...] + + + + | PRODUCT | [id number] | | [facility] | | | UNIT [...] + + + + | EXPIRATION | [id number] | | [facility] | | | DATE [...] + + + + | BLOOD | [id number] | | [facility] | | | PRODUCT [...] [facility] | [address] | [place] [address] | | | SERVICES, | [address] [...] + + + + | PRODUCT | [id number] | | [facility] | | | UNIT [...] + + + + | EXPIRATION | [id number] | | [facility] | | | DATE [...] + + + + | BLOOD | [id number] | | [facility] | | | PRODUCT [...] + + + + + | [facility] | [address] | [place] [address] | | | SERVICES, | [address] [...] [facility] | [address] | [place] [address] | | | SERVICES, | [address] [...] [facility] | [address] | [place] [address] | | | SERVICES, | [address] [...] + + + + + | [facility] | [address] | [place] [address] | | | SERVICES, | [address] [...] + + + + + | [facility] | [address] | [place] [address] | | | SERVICES, CORE | [address] [...] OF | [address] | [place], [place] | | | CARDIOLOGY | [address] | [address] | | + + + + + [...] Note | + + | Service Account, Andera In Interface - 10/08/2017 10:47 AM PDT [...] | [address] | [place], [place] | | | [facility] | [address] | [address] | | | TESTS | | | [...] [facility] | [address] | [place] [address] | | | SERVICES, CORE | [address] | | | + + + + + MAGNESIUM, PLASMA (10/08/2017 6:00 AM PDT) + +-------+ + + + | Component | Value | Ref Range | Performed | Pathologist | | | | | At | Signature | + +-------+ + + + | MAGNESIUM,P | 2.2 | 1.6 - 2.6 mg/dL | [facility] | | | [facility] | | [...] LABORATORY | [address] | [place] [address] | | | SERVICES, NATALEE | V[place] [...] | | | LABORATORY | | | ENGLISH | | | SERVICES, | | | [...] + + + + + | [facility] | [address] | [place] [address] | | | SERVICES, CORE | [address] [...] | [address] CHAMBERS | [place], [place] | | | [facility] | [address] | [address] | | | TESTS | | | [...] MARQUAM | [address] | [place], [place] | | | [facility] | [address] | [address] | | | TESTS | | | [...] | [address] | [place], [place] | | | [facility] GE[facility] OF CARE | [address] | [address] | | | TESTS | | | [...] | [address] | [place], [place] | | | [facility] | [address] | [address] | | | TESTS | | | [...] PIYUSH | [address] | [place], [place] | | | [facility] | [address] | [address] | | | TESTS | | | [...] [facility] | [address] | [place] [address] | | | SERVICES, NATALEE | VILMA [...] + + + + + | [facility] | [address] | [place] [address] | | | SERVICES, CORE | VILMA [...] | | | LABORATORY | | | ENGLISH | | | SERVICES, | | | [...] | + + + + + | [facility] | [address] | [place] [address] | | | SERVICES, CORE | VILMA [...] 99 | 70 - 99 mg/dL | [facility] - | | | GLUCOSE, | [...] | [address] | [place], [place] | | | [facility] | [address] | [address] | | | TESTS | | | [...] | [address] | [place] | | | [facility] OF CARE | [address] | [address] | | | TESTS | | | [...] OF | [address] | [place], [place] | | | CARDIOLOGY | [facility] | [address] | | + + + + + [...] | [address] | [place] | | | [facility] | [address] | [address] | | | TESTS | | | [...] | + + + + + | [facility] | [address] | [place] [address] | | | NATALEE WORTHINGTON | VILMA [...] | + + + + + | [facility] | [address] | [place] [address] | | | SERVICES, CORE | VILMA [...] | | | LABORATORY | | | ENGLISH | | | SERVICES, | | | [...] | + + + + + | [facility] | [address] | [place] [address] | | | SERVICES, NATALEE | VILMA [...] (H) | 70 - 99 mg/dL | [facility] - | | | GLUCOSE, | [...] | [address] | [place] | | | [facility] | [address] | [address] | | | TESTS | | | [...] | [address] | [place], [place] | | | [facility] | [address] | [address] | | | TESTS | | | [...] | [address] | [place] | | | [facility] | [address] | [address] | | | TESTS | | | [...] | [address] | [place] | | | [facility] | [address] | [address] | | | TESTS | | | [...] OF | [address] | [place], [place] | | | CARDIOLOGY | [address] | [address] | | + + + + + [...] + + + + + | [facility] | [address] | [place] [address] | | | SERVICES, CORE | VILMA [...] [facility] | [address] | [place] [address] | | | SERVICES, CORE | PARK [...] | | | LABORATORY | | | ENGLISH | | | SERVICES, | | | [...] | + + + + + | [facility] | [address] | [place] [address] | | | NATALEE WORTHINGTON | VILMA [...] (H) | 70 - 99 mg/dL | [facility] - | | | GLUCOSE, | [...] PIYUSH | [address] | [place], [place] | | | [facility] | [address] | [address] | | | TESTS | | | [...] | [address] | [place] | | | GLORIA GENAO OF GM | [facility] | [address] | | | TESTS | | | [...] RAPHAELAM | [address] | [place], [place] | | | [facility] GE[facility] OF CARE | [facility] | [address] | | | TESTS | | | [...] (H) | 70 - 99 mg/dL | [facility] - | | | GLUCOSE, | [...] PIYUSH | [address] | [place], [place] | | | [facility] | [address] | [address] | | | TESTS | | | [...] | [address] | [place] | | | GLORIA GENAO OF GM | [facility] | [address] | | | TESTS | | | [...] | + + + + + | [facility] | [address] | [place] [address] | | | SERVICES, CORE | PARK [...] [facility] | [address] | [place] [address] | | | ELIN, NATALEE | VILMA [...] | | | LABORATORY | | | ENGLISH | | | SERVICES, | | | [...] | + + + + + | [facility] | [address] | [place] [address] | | | SERVICES, CORE | VILMA [...] | [address] | [place] | | | GL[facility] GE[facility]O OF CARE | [facility] | [address] | | | TESTS | | | [...] - MARQUAM | [address] | [place] | | | [facility] | [address] | [address] | | | TESTS | | | [...] + + + + + | [facility] | [address] | [place] [address] | | | SERVICES, CORE | VILMA [...] by | | | | | | Dumbstruck,500 | | | | | | Rogelio Pickard, [place] [facility] [place] | | | | | | [phone] | | | | | | [phone].Natrix Separations. | | | | | | [facility] MD, | | | | | | [...] [facility] | [address] | [place], [place] | | | [facility] | | [address] | | + + + + + [...] LABORATORY | [address] | [place] [address] | | | SERVICES, CORE | PARK [...] [facility] | [address] | [place] [address] | | | SERVICES, CORE | PARK [...] modified from | [facility] | | original fair[employer] gold attendant's approved specifications. The performance | LABORATORY | | of the REVIT DRAFTER HIV Combo test, with or without confirmation, was not | SERVICES, | | tested in pediatric patients less than 2 years of age. [facility] | SPECIAL IMM + | | [...] | + + + + + | [facility] | [address] | [place] [address] | | | SERVICES, SPECIAL | VILMA [...] (H) | 70 - 99 mg/dL | [facility] - | | | GLUCOSE, | [...] | [address] | [place] | | | [facility] | [address] | [address] | | | TESTS | | | [...] | [address] | [place] | | | [facility] | [address] | [address] | | | TESTS | | | [...] LABORATORY | [address] | [place] [address] | | | SERVICES, NATALEE | PARK [...] [facility] | [address] | [place] [address] | | | SERVICES, CORE | PARK [...] | | | LABORATORY | | | ENGLISH | | | SERVICES, | | | [...] the MDRD equation recommended by the | [facility] | | National Kidney Disease Education [...] | + + + + + | [facility] | [address] | [place] [address] | | | ELIN, NATALEE | VILMA [...] | [address] | [place] | | | [facility] | [facility] | [address] | | | TESTS | | | [...] | [address] | [place] | | | [facility] GE[facility]O OF CARE | [address] | [address] | | | TESTS | | | [...] OF | [address] | [place], [place] | | | CARDIOLOGY | [address] | [address] | | + + + + + [...] At | + + + | EXAM: IA CHEST 1 VIEW HISTORY: Evaluate PICC placement [...] Interface - 10/02/2017 2:07 PM PDT EXAM: IA CHEST 1 | | VIEW HISTORY: Evaluate [...] | [address] | [place], [place] | | | [facility] GE[facility] OF CARE | [address] | [address] | | | TESTS | | | | + + + + + X-RAY PORTABLE CHEST 1 VIEW (10/02/2017 8:56 AM PDT) + + | Specimen | + + | | + + + + + | Narrative | Performed At | + + + | EXAM: IA CHEST 1 VIEW HISTORY: new leukocytosis, eval [...] Note | + + | Service Account, [employer] Res In Interface - 10/02/2017 10:27 AM PDT EXAM: IA CHEST 1 | | VIEW HISTORY: new [...] | |Dictation initiated: aMrcelo Morley MD 10/02/2017 10:20 AM | + [...] | [address] | [place] | | | [facility] | [address] | [address] | | | TESTS | | | [...] | + + + + + | [facility] | [address] | [place] [address] | | | NATALEE WORTHINGTON | VILMA [...] + + + + + | [facility] | [address] | [place] [address] | | | SERVICES, CORE | VILMA [...] | | | LABORATORY | | | ENGLISH | | | SERVICES, | | | [...] | + + + + + | [facility] | [address] | [place] [address] | | | SERVICES, CORE | VILMA [...] (H) | 70 - 99 mg/dL | [facility] - | | | GLUCOSE, | [...] | [address] | [place] | | | [facility] GE[facility] OF CARE | [address] | [address] | | | TESTS | | | [...] | [address] | [place] | | | H[place], POINT OF CARE | [address] | [address] | | | TESTS | | | [...] | [address] | [place] | | | GLORIA GENAO OF GM | [facility] | [address] | | | TESTS | | | [...] Note | + + | Service Account, Andera In Interface - 10/01/2017 11:34 AM PDT [...] | [address] | [place] | | | [facility] | [address] | [address] | | | TESTS | | | [...] LABORATORY | [address] | [place] [address] | | | NATALEE WORTHINGTON | VILMA [...] | + + + + + | [facility] | [address] | [place] [address] | | | SERVICES, NATALEE | PARK [...] | | | LABORATORY | | | ENGLISH | | | SERVICES, | | | [...] | + + + + + | [facility] | [address] | [place] [address] | | | SERVICES, CORE | VILMA [...] (H) | 70 - 99 mg/dL | [facility] - | | | GLUCOSE, | [...] PIYUSH | [address] | [place], [place] | | | GLORIA GENAO OF GM | [facility] | [address] | | | TESTS | | | [...] PIYUSH | [address] | [place] | | | [facility] | [facility] | [address] | | | TESTS | | | [...] OF | [address] | [place], [place] | | | CARDIOLOGY | [address] | [address] | | + + + + + [...] | [address] | [place] | | | GLORIA GENAO OF GM | [address] | [address] | | | TESTS | | | [...] | [address] | [place] | | | [facility] | [address] | [address] | | | TESTS | | | [...] [facility] | [address] | [place] [address] | | | SERVICES, NATALEE | PARK [...] [facility] | [address] | [place] [address] | | | SERVICES, CORE | PARK [...] | | | LABORATORY | | | ENGLISH | | | SERVICES, | | | [...] | + + + + + | [facility] | [address] | [place] [address] | | | NATALEE WORTHINGTON | VILMA [...] MARQUAM | [address] | [place], [place] | | | GLORIA GENAO OF GM | [address] | [address] | | | TESTS | | | [...] | [address] | [place] | | | [facility] GE[facility]O OF CARE | [address] | [address] | | | TESTS | | | [...] | [address] | [place] | | | [facility] | [address] | [address] | | | TESTS | | | [...] DEPT OF | [address] | [place], [place] | | | CARDIOLOGY | [address] | [address] | | + + + + + [...] | [address] | [place] | | | [facility] GE[facility]O OF CARE | [address] | [address] | | | TESTS | | | [...] + + + + + | [facility] | [address] | [place] [address] | | | SERVICES, CORE | VILMA [...] | | | LABORATORY | | | ENGLISH | | | SERVICES, | | | [...] [facility] | [address] | [place] [address] | | | SERVICES, CORE | PARK [...] | + + + + + | [facility] | [address] | [place] [address] | | | SERVICES, NATALEE | VILMA [...] | [address] | [place] | | | [facility] | [address] | [address] | | | TESTS | | | [...] MARQUAM | [address] | [place], [place] | | | [facility] | [address] | [address] | | | TESTS | | | [...] + + + | [facility] | [address] | [place] | | | [facility] | [address] | [address] | | | TESTS | | | [...] | + + + + + | [facility] | [address] | [place], [place] | | | CARDIOLOGY | [address] | [address] | | + + + + + CAPILLARY BLOOD GLUCOSE (NO CHG), POC (09/28/2017 6:47 AM PDT) + +---------+ + + + | Component | Value | Ref Range | Performed | Pathologist | | | | | At | Signature | + +---------+ + + + | BLOOD | 147 (H) | 70 - 99 mg/dL | [facility] - | | | GLUCOSE, | [...] | [address] | [place], [place] | | | [facility] | [address] | [address] | | | TESTS | | | [...] | + + + + + | [facility] | [address] | [place] [address] | | | NATALEE WORTHINGTON | VILMA [...] | + + + + + | [facility] | [address] | [place] [address] | | | NATALEE WORTHINGTON | PARK [...] | | | LABORATORY | | | ENGLISH | | | SERVICES, | | | [...] | + + + + + | [facility] | [address] | [place] [address] | | | SERVICES, CORE | PARK [...] (H) | 70 - 99 mg/dL | [facility] - | | | GLUCOSE, | [...] | [address] | [place] | | | GLORIA GENAO OF GM | [facility] | [address] | | | TESTS | | | | + + + + + CAPILLARY BLOOD GLUCOSE (NO CHG) POC (09/27/2017 6:25 PM PDT) + +---------+ [...] + | [facility] | [address] | [place] | | | [facility] | [address] | [address] | | | TESTS | | | [...] | [address] | [place] | | | GL[facility]IA GENAO OF CARE | [address] | [address] | | | TESTS | | | [...] | [address] | [place] | | | [facility] | [facility] | [address] | | | TESTS | | | [...] + + + + + | [facility] | [address] | [place] [address] | | | SERVICES, CORE | PARK [...] [facility] | [address] | [place] [address] | | | SERVICES, CORE [...] | | | LABORATORY | | | ENGLISH | | | SERVICES, | | | [...] the MDRD equation recommended by the | [facility] | | National Kidney Disease Education [...] | + + + + + | [facility] | [address] | [place] [address] | | | SERVICES, CORE | VILMA [...] (H) | 70 - 99 mg/dL | [facility] - | | | GLUCOSE, | [...] | [address] | [place] | | | [facility] | [facility] | [address] | | | TESTS | | | [...] | [address] | [place] | | | GL[facility]IA GENAO OF CARE | [address] | [address] | | | TESTS | | | [...] ECG | Electronically signed | | [facility] | | | IMPRESSION | by: PAULO [...] OF | [address] | [place], [place] | | | CARDIOLOGY | [address] | [address] | | + + + + + [...] + + + | [facility] | [address] | [place] | | | GLORIA GENAO OF GM | [address] | [address] | | | TESTS | | | [...] | [address] | [place] | | | [facility] | [address] | [address] | | | TESTS | | | [...] - PIYUSH | [address] | [place] | | | [place] [facility] | [address] | [address] | | | TESTS | | | [...] [facility] | [address] | [place] [address] | | | ELIN, NATALEE | VILMA [...] + + + + + | [facility] | [address] | [place] [address] | | | SERVICES, CORE | VILMA [...] | | | LABORATORY | | | ENGLISH | | | SERVICES, | | | [...] | + + + + + | [facility] | [address] | [place] [address] | | | SERVICES, CORE | VILMA [...] | [address] | [place] | | | [facility] | [address] | [address] | | | TESTS | | | [...] + + + + + | [facility] | [address] | [place] [address] | | | SERVICES, CORE | VILMA [...] | + + + + + | [facility] | [address] | [place] [address] | | | SERVICES, [facility] | [address] | [...] | | | LABORATORY | | | ENGLISH | | | SERVICES, | | | [...] the MDRD equation recommended by the | [facility] | | National Kidney Disease Education [...] LABORATORY | [address] | [place] [address] | | | SERVICES, CORE | VILMA [...] + + | [facility] | 457 | ms | [facility] DE[facility] [...] + + | [facility] | [address] | [place], [place] | | | CARDIOLOGY | [address] | [address] | | + + + + + [...] Note | + + | Service Account, [employer] In Interface - 09/24/2017 4:09 PM [...] + + + + + | [facility] | [address] | [place] [address] | | | SERVICES, CORE | VILMA [...] | | | LABORATORY | | | ENGLISH | | | SERVICES, | | | [...] [facility] | [address] | [place] [address] | | | SERVICES, CORE | PARK [...] [facility] | [address] | [place] [address] | | | NATALEE WORTHINGTON | PARK [...] | + + + + + | [facility] | [address] | [place] [address] | | | ELIN, NATALEE | [address] | | | + + + + + MAGNESIUM, PLASMA (09/23/2017 4:04 AM PDT) + +-------+ + + + | Component | Value | Ref Range | Performed | Pathologist | | | | | At | Signature | + +-------+ + + + | MAGNESIUM,P | 2.1 | 1.6 - 2.6 mg/dL | [facility] | | | [facility] | | | [...] [facility] | [address] | [place] [address] | | | SERVICES, NATALEE | VILMA [...] | | | LABORATORY | | | ENGLISH | | | SERVICES, | | | [...] | + + + + + | [facility] | [address] | [place] [address] | | | SERVICES, NATALEE | VILMA [...] | [address] | [place], [place] | | | GLORIA GENAO OF CARE | [facility] | [address] | | | TESTS | | | [...] | [address] | [place], [place] | | | GLORIA GENAO [facility] | [address] | [address] | | | TESTS | | | [...] | + + + + + | [facility] | [address] | [place] [address] | | | SERVICES, NATALEE | PARK [...] OF | [address] | [place], [place] | | | CARDIOLOGY | [address] | [address] | | + + + + + [...] [facility] | [address] | [place] [address] | | | SERVICES, NATALEE | PARK [...] [facility] | [address] | [place] [address] | | | SERVICES, CORE | VILMA [...] | | | LABORATORY | | | ENGLISH | | | SERVICES, | | | [...] | + + + + + | [facility] | [address] | [place] [address] | | | NATALEE WORTHINGTON | VILMA [...] + + | [facility] | [address] [facility] | [place] | | | [facility] | [facility] | [address] | | | TESTS | | | [...] [facility] | [address] | [place] [address] | | | NATALEE WORTHINGTON | PARK [...] | + + + + + | [facility] | [address] | [place] [address] | | | SERVICES, NATALEE | VILMA [...] | | | LABORATORY | | | ENGLISH | | | SERVICES, | | | [...] + + + + + | [facility] | [address] | [place] [address] | | | SERVICES, CORE | PARK [...] Note | + + | Service Account, Andera In Interface - 09/20/2017 7:50 PM PDT [...] now presented. Final signature: Prabhakar Castro | Prabhakar CABRERA 09/20/2017 6:24 PM Preliminary: Mgea Yeager MD | | + + + [...] Note | + + | Service Account, [employer] In Interface - 09/20/2017 6:26 PM [...] | |Final signature: Mega Yaeger MD 09/20/2017 6:25 PM | |Preliminary: Mega [...] Note | + + | Service Account, Andera In Interface - 09/20/2017 5:17 PM PDT [...] | [address] | [place], [place] | | | CARDIOLOGY | [facility] | [address] | | + + + + + [...] | + + + + + | [facility] | [address] | [place] [address] | | | SERVICES, CORE | VILMA [...] [facility] | [address] | [place] [address] | | | SERVICES, CORE | PARK [...] | | | LABORATORY | | | ENGLISH | | | SERVICES, | | | [...] the MDRD equation recommended by the | [facility] | | National Kidney Disease Education [...] | + + + + + | [facility] | [address] | [place] [address] | | | SERVICES, CORE | PARK [...] LABORATORY | [address] | [place] [address] | | | SERVICES, CORE | PARK [...] [facility] | [address] | [place] [address] | | | SERVICES, CORE | PARK [...] | | | LABORATORY | | | ENGLISH | | | SERVICES, | | | [...] the MDRD equation recommended by the | [facility] | | National Kidney Disease Education [...] | + + + + + | [facility] | [address] | [place] [address] | | | SERVICES, CORE | PARK [...] | + + + + + | [facility] | [address] | [place] [address] | | | SERVICES, CORE | PARK [...] [facility] | [address] | [place] [address] | | | SERVICES, CORE | PARK [...] | | | LABORATORY | | | ENGLISH | | | SERVICES, | | | [...] the MDRD equation recommended by the | [facility] | | National Kidney Disease Education [...] | + + + + + | [facility] | [address] | [place] [address] | | | SERVICES, CORE | PARK [...] Note | + + | Service Account, [employer] Res In Interface - 09/17/2017 11:53 AM [...] | + + + + + | [facility] | [address] | [place] [address] | | | NATALEE WORTHINGTON | PARK [...] + + + + + | [facility] | [address] | [place] [address] | | | SERVICES, CORE | V[address] [...] | | | LABORATORY | | | ENGLISH | | | SERVICES, | | | [...] | + + + + + | [facility] | [address] | [place] [address] | | | SERVICES, CORE | [address] | | | + + + + + X-RAY PORTABLE CHEST PICC LINE CHECK (09/16/2017 1:11 PM PDT) + + | Specimen | + + | | + + + + + | Narrative | Performed At | + + + | EXAM: IA CHEST PICC LINE CHECK HISTORY: PICC placement [...] Note | + + | Service Account, [employer] Res In Interface - 09/16/2017 1:34 PM PDT EXAM: IA CHEST | | PICC LINE CHECK HISTORY: [...] At | + + + | EXAM: IA CHEST PICC LINE CHECK HISTORY: Evaluate PICC [...] Service Account, [employer] Res In Interface - 09/16/2017 11:41 AM PDT EXAM: IA CHEST | | PICC LINE CHECK HISTORY: [...] | + + + + + | [facility] | [address] | [place] [address] | | | NATALEE WORTHINGTON | VILMA [...] + + + + + | [facility] | [address] | [place] [address] | | | SERVICES, CORE | PARK [...] | | | LABORATORY | | | ENGLISH | | | SERVICES, | | | [...] [facility] | [address] | [place] [address] | | | SERVICES, CORE | [address] | | | + + + + + X-RAY PORTABLE CHEST 1 VIEW (09/15/2017 3:28 PM PDT) + + | Specimen | + + | | + + + + + | Narrative | Performed At | + + + | EXAM: IA CHEST 1 VIEW HISTORY: COMPARISON: None. | [...] Interface - 09/15/2017 6:45 PM PDT EXAM: IA CHEST 1 | | VIEW HISTORY: COMPARISON: [...] At | + + + | EXAM: IA CHEST PICC LINE CHECK HISTORY: PICC COMPARISON: [...] Interface - 09/15/2017 6:43 PM PDT EXAM: IA CHEST | | PICC LINE CHECK HISTORY: [...] Note Indications:TPN Procedure | | | location: Unit:[facility] Room: #12 Providers: Attending name: | [...] | pause verifies correct patient, procedure, equipment, support clerk | | | and site/side marked as [...] | area Basilic vein. Catheter lot number: [id number] with a length of 55 | | [...] + + + + + | [facility] | [address] | [place] [address] | | | SERVICES, CORE | VILMA [...] + + + + + | [facility] | [address] | [place] [address] | | | SERVICES, CORE | PARK [...] | | | LABORATORY | | | ENGLISH | | | SERVICES, | | | [...] + + + + + | [facility] | [address] | [place] [address] | | | SERVICES, [facility] | [address] | [...] [facility] | [address] | [place] [address] | | | NATALEE WORTHINGTON | [address]MA [...] | + + + + + | [facility] | [address] | [place] [address] | | | NATALEE WORTHINGTON | VILMA [...] | | | LABORATORY | | | ENGLISH | | | SERVICES, | | | [...] + + + + + | [facility] | [address] | [place] [address] | | | SERVICES, CORE | PARK [...] [facility] | [address] | [place] [address] | | | NATALEE WORTHINGTON | VILMA [...] | + + + + + | [facility] | [address] | [place] [address] | | | SERVICES, NATALEE | VILMA [...] | | | LABORATORY | | | ENGLISH | | | SERVICES, | | | [...] + + + + + | [facility] | [address] | [place] [address] | | | SERVICES, CORE | VILMA [...] | + + + + + | [facility] | [address] | [place] [address] | | | SERVICES, CORE | PARK [...] [facility] | [address] | [place] [address] | | | SERVICES, CORE | PARK [...] | | | LABORATORY | | | ENGLISH | | | SERVICES, | | | [...] | + + + + + | [facility] | [address] | [place] [address] | | | NATALEE WORTHINGTON | VILMA [...] [facility] | [address] | [place] [address] | | | NATALEE WORTHINGTON | VILMA [...] | + + + + + | [facility] | [address] | [place] [address] | | | NATALEE WORTHINGTON | VILMA [...] | | | LABORATORY | | | ENGLISH | | | SERVICES, | | | [...] + + + + + | [facility] | [address] | [place] [address] | | | SERVICES, CORE | VILMA [...] + + + + + | [facility] | [address] | [place] [address] | | | SERVICES, CORE | VILMA [...] Note | + + | Service Account, SportStream Res In Interface - 09/10/2017 2:08 PM [...] Note | + + | Service Account, Andera In Interface - 09/10/2017 2:31 PM PDT [...] At | + + + | STUDY: IA CHEST 1 VIEW 09/10/17 07:02:01 HISTORY: Possible [...] Note | + + | Service Account, SportStream Res In Interface - 09/10/2017 9:25 AM PDT STUDY: IA CHEST 1 | | VIEW 09/10/17 07:02:01 [...] [facility] | [address] | [place] [address] | | | SERVICES, CORE | VILMA [...] [facility] | [address] | [place] [address] | | | SERVICES, CORE | PARK [...] + + + + + | [facility] | [address] | [place] [address] | | | SERVICES, CORE | VILMA [...] [facility] | [address] | [place] [address] | | | SERVICES, CORE | PARK [...] | | | LABORATORY | | | ENGLISH | | | SERVICES, | | | [...] | + + + + + | [facility] | [address] | [place] [address] | | | NATALEE WORTHINGTON | VILMA [...] OF | [address] | [place], [place] | | | CARDIOLOGY | [address] | [address] | | + + + + + [...] Note | + + | Service Account, SportStream Res In Interface - 09/10/2017 11:11 AM [...] +---------+ + + CAPILLARY BLOOD GLUCOSE (NO CHG)CITLALY (09/09/2017 11:50 AM PDT) + +---------+ + [...] | [address] | [place], [place] | | | [facility] | [facility] | [address] | | | TESTS | | | [...] LABORATORY | [address] | [place] [address] | | | NATALEE WORTHINGTON | VILMA [...] [facility] | [address] | [place] [address] | | | SERVICES, CORE | PARK [...] | | | LABORATORY | | | ENGLISH | | | SERVICES, | | | [...] | + + + + + | [facility] | [address] | [place] [address] | | | NATALEE WORTHINGTON | VILMA [...] LABORATORY | [address] | [place] [address] | | | SERVICES, CORE | PARK [...] | | | LABORATORY | | | ENGLISH | | | SERVICES, | | | [...] [facility] | [address] | [place] [address] | | | SERVICES, CORE | PARK [...] + + + + + | [facility] | [address] | [place] [address] | | | SERVICES, CORE | PARK [...] [facility] | [address] | [place] [address] | | | ELIN, NATALEE | VILMA [...] OF | [address] | [place], [place] | | | CARDIOLOGY | [address] | [address] | | + + + + + X-RAY PORTABLE CHEST 1 VIEW (09/07/2017 6:12 AM PDT) + + | Specimen | + + | | + + + + + | Narrative | Performed At | + + + | EXAM: IA CHEST 1 VIEW HISTORY: Post extubation COMPARISON: [...] Interface - 09/07/2017 10:46 AM PDT EXAM: IA CHEST 1 | | VIEWHISTORY: Post extubationCOMPARISON: [...] | + + + + + | [facility] | [address] | [place] [address] | | | NATALEE WORTHINGTON | VILMA [...] | | | LABORATORY | | | ENGLISH | | | SERVICES, | | | [...] + + + + + | [facility] | [address] | [place] [address] | | | SERVICES, CORE | VILMA [...] | + + + + + | [facility] | [address] | [place] [address] | | | SERVICES, CORE | [address] | | | + + + + + X-RAY ABD LTD FEEDING TUBE EVAL (09/06/2017 8:04 PM PDT) + + | Specimen | + + | | + + + + + | Narrative | Performed At | + + + | EXAM: ABD LTD FEEDING TUBE KAREEMAL 09/06/17 19:27:59 COMPARISON: | [facility] | | [...] Service Account, Kostas Casper In Interface - 09/07/2017 10:46 AM PDT [...] + + + | ANA LILIA-HALIMA | 537 | ms | [facility] DEPT [...] OF | [address] | [place], [place] | | | CARDIOLOGY | [address] | [address] | | + + + + + [...] | | | attempt. Midline lot number [id number]; there was positive blood | | | [...] | | | LABORATORY | | | ENGLISH | | | SERVICES, | | | [...] LABORATORY | [address] | [place] [address] | | | SERVICES, CORE | PARK [...] + + + + + | [facility] | [address] | [place] [address] | | | SERVICES, [facility] | [address] | | | + + + + + X-RAY PORTABLE CHEST 1 VIEW (09/05/2017 5:33 AM PDT) + + | Specimen | + + | | + + + + + | Narrative | Performed At | + + + | EXAM: IA CHEST 1 VIEW HISTORY: Evaluation after chest tube | [facility] | | removal. COMPARISON: Yesterday FINDINGS: Endotracheal [...] Note | + + | Service Account, SportStream Res In Interface - 09/05/2017 10:16 AM PDT EXAM: IA CHEST 1 | | VIEW HISTORY: Evaluation [...] | | + +---------+ + + | [facility] | | | | | [...] | + + + + + | [facility] | [address] | [place] [address] | | | SERVICES, CORE | VILMA [...] + + + + + | [facility] | [address] | [place] [address] | | | SERVICES, CORE | VILMA [...] | | | LABORATORY | | | ENGLISH | | | SERVICES, | | | [...] [facility] | [address] | [place] [address] | | | SERVICES, CORE | PARK [...] | | | LABORATORY | | | ENGLISH | | | SERVICES, | | | [...] + + + + + | [facility] | [address] | [place] [address] | | | [facility], [facility] | [address] | [...] tomorrow morning. CB Henson Pager / ID: [phone] | | + + + CULTURE, SPUTUM [...] | + + + + + | [facility] - | [address] | [place] [address] | | | [place] | | | [...] + + + + + | [facility] | [address] | [place] [address] | | | SERVICES, NATALEE | VILMA [...] | [facility] | | | GRAVITY | Shawmut performed by | | LABORATORY | | [...] [facility] | [address] | [place] [address] | | | SERVICES, CORE | VILMA [...] + + + + + | [facility] | [address] | [place] [address] | | | SERVICES, CORE | PARK [...] LABORATORY | [address] | [place] [address] | | | SERVICES, CORE | PARK [...] OF | [address] | [place], [place] | | | CARDIOLOGY | [address] | [address] | | + + + + + X-RAY PORTABLE CHEST 1 VIEW (09/04/2017 7:04 AM PDT) + + | Specimen | + + | | + + + + + | Narrative | Performed At | + + + | EXAM: IA CHEST 1 VIEW HISTORY: Hypoxia. Intubated. | [...] Interface - 09/04/2017 9:49 AM PDT EXAM: IA CHEST 1 | | VIEW HISTORY: Hypoxia. [...] | + + + + + | [facility] | [address] | [place] [address] | | | SERVICES, CORE | VILMA [...] LABORATORY | [address] | [place] [address] | | | SERVICES, CORE | PARK [...] | | | LABORATORY | | | ENGLISH | | | SERVICES, | | | [...] the MDRD equation recommended by the | [facility] | | National Kidney Disease Education [...] | + + + + + | [facility] | [address] | [place] [address] | | | SERVICES, CORE | [address] | | | + + + + + MAGNESIUM, PLASMA (09/04/2017 12:29 AM PDT) + +-------+ + + + | Component | Value | Ref Range | Performed | Pathologist | | | | | At | Signature | + +-------+ + + + | MAGNESIUM,P | 1.9 | 1.6 - 2.6 mg/dL | [facility] | | | [facility] | | [...] [facility] | [address] | [place] [address] | | | SERVICES, NATALEE | VILMA [...] - [facility] | [address] | [place], [place] | | | [facility] | [address] | [address] | | | TESTS | | | [...] | [address] | [place], [place] | | | [facility] | [address] | [address] | | | TESTS | | | [...] | [address] | [place], [place] | | | [facility] | [address] | [address] | | | TESTS | | | [...] + | [facility] | [address] | [place], [place] | | | [facility] | [address] | [address] | | | TESTS | | | [...] | | + +---------+ + + | [facility] | | | | | [facility] | | | | + +---------+ + [...] detected | AIR[facility] - | | | [facility] | + + + + + + + + | Performing | Address | City/State/Zipcode | Phone Number | | Organization | | | | + + + + + | [facility] | [address] | [place] [address] | | | [place] | | | | + + + [...] + + + + + | [facility] | [address] | [place] [address] | | | SERVICES, CORE | VILMA [...] Note | + + | Service Account, Andera In Interface - 09/03/2017 9:54 AM PDT [...] | + + + + + | [facility] - | [address] | [place] [address] | | | [place] | | | | + + + [...] LABORATORY | [address] | [place] [address] | | | SERVICES, CORE | VILMA [...] + + + + + | [facility] | [address] | [place] [address] | | | SERVICES, NATALEE | VILMA [...] | | | LABORATORY | | | ENGLISH | | | SERVICES, | | | [...] | + + + + + | [facility] | [address] | [place] [address] | | | SERVICES, CORE | VILMA [...] + + + + + | [facility] | [address] | [place] [address] | | | SERVICES, NATALEE | [address] | | | + + + + + OPERATION RECORD (09/02/2017 6:53 PM PDT) + + | Procedure Note | + + | Fidelina Shields MD - 09/02/2017 6:53 PM PDT Date of Service: 09/02/2017 | | Attending Surgeon: Fidelina Shields MD Rug Receiving Clerk(s): | | Ajay Butts MD, resident. [...] 09/02/2017 18:15:29DT: 09/02/2017 18:53:52Job #: | | [id number] to federal Medicare and Medicaid regulations I was present for | | the entire procedure.Fidelina Shields MDAssistanbrice ProfessorDepartment of SurgeryOffice: | | [phone]: [id number] has been electronically signed by Fidelina Shields MD, | | 09/03/2017 at 9:11 AM. | | | | | |Fidelina Shields MD | |Film Loader | |Department of Surgery | |Office: [phone] | |Pager: [phone] | | | |This has been electronically [...] + + + + + | [facility] | [address] | [place] [address] | | | SERVICES, CORE | PARK [...] | + + + + + | [facility] | [address] | [place] [address] | | | SERVICES, NATALEE | VILMA [...] | + + + + + | [facility] - | [address] | [place] [address] | | | [place] | | | [...] LABORATORY | [address] | [place] [address] | | | NATALEE WORTHINGTON | VILMA [...] | | | LABORATORY | | | ENGLISH | | | SERVICES, | | | [...] | + + + + + | [facility] | [address] | [place] [address] | | | SERVICES, NATALEE | VILMA [...] Note | + + | Service Account, Andera In Interface - 09/02/2017 4:25 PM PDT [...] Bedrest Initial surgical | | | contact: [facility] Vic[facility] Butts, R4 Surgery [phone] Pursuant | | | to federal Medicare and Medicaid regulations I was present for the | | | entire procedure. Fidelina Shields MD Film Loader | | | Department of Surgery Office: [phone] Pager: [phone] This has | | | been electronically [...] [facility] | [address] | [place] [address] | | | SERVICES, CORE | PARK [...] + + + + + | [facility] | [address] | [place] [address] | | | SERVICES, [facility] | [address] | | | + + + + + OPERATION RECORD (09/02/2017 6:51 AM PDT) + ---+ | Procedure Note | + ---+ | Fidelina Shields MD - 09/02/2017 6:51 AM PDT Date of Service: 09/01/2017 | | Attending Surgeon: Fidelina Shields MD Rug Receiving Clerk(s): Haim Peralta MD. | | Ajay [...] of the angiography.Ajay | | Truong Casarez MDTBK/FELYD: 09/02/2017 06:17:53DT: 09/02/2017 | | 06:51:37Job #: [id number] to federal Medicare and Medicaid regulations I | | was present for the entire procedure.Fidelina Shields MDAssdioni ProfessorDepartment of | | SurgeryOffice: [phone]: [id number] has been electronically signed by Fidelina Whitman | | MD Cornelius, 09/02/2017 at 10:40 AM. | | | | | |Pursuant to federal Medicare and Medicaid regulations I was present for the entire procedur e. | | | | | | | |Fidelina Shields MD | |Film Loader | |Department of Surgery | |Office: [phone] | |Pager: [phone] | | | |This has been electronically [...] + + + + + | [facility] | [address] | [place] [address] | | | SERVICES, CORE | VILMA [...] | + + + + + | [facility] | [address] | [place] [address] | | | SERVICES, CORE | PARK [...] + + + + | PRODUCT | [id number] | | [facility] | | | UNIT [...] + + + + | EXPIRATION | [id number] | | [facility] | | | DATE [...] + + + + | BLOOD | [id number] | | [facility] | | | PRODUCT [...] LABORATORY | [address] | [place] [address] | | | SERVICES, | [address] [...] + + + + + | [facility] | [address] | [place] [address] | | | SERVICES, CORE | VILMA [...] | | | LABORATORY | | | ENGLISH | | | SERVICES, | | | [...] | + + + + + | [facility] | [address] | [place] [address] | | | SERVICES, CORE | VILMA [...] + + + + + | [facility] | [address] | [place] [address] | | | SERVICES, NATALEE | VILMA [...] | | | | INFORMATION: | | [place] | | | | [employer] | [...] (http://www.cdc.gov/mmwr | | | | | | /preview/mmwrhtml/[email or web address] | | | | | | [email or web address].htm), [...] [facility] | | | | by [employer], | | AIRPORT - | | | | | | [place] | | | | [address] | | | | | | Rogelio [address] [facility] | | | | | | [id number] | | | | | | | | | | | | www.[employer] | | | | | | [...] + | [facility] - | [address] | [place] [address] | | | [place] | | | [...] + + + + + | [facility] | [address] | [place] [address] | | | SERVICES, CORE | PARK [...] + + + + + | [facility] | [address] | [place] [address] | | | SERVICES, CORE | VILMA [...] | | + +---------+ + + | [facility] | | | | | VOICE RECOGNITION | | | | + +---------+ + + X-RAY PORTABLE CHEST 1 VIEW (09/01/2017 6:14 PM PDT) + + | Specimen | + + | | + + + + + | Narrative | Performed At | + + + | EXAM: IA CHEST 1 VIEW HISTORY: Hypoxemia COMPARISON: 09/01/17 | [facility] | | FINDINGS: The endotracheal tube, [...] Interface - 09/02/2017 10:34 AM PDT EXAM: IA CHEST 1 | | VIEW HISTORY: HypoxemiaCOMPARISON: [...] | + + + + + | [facility] | [address] | [place] [address] | | | SERVICES, CORE | PARK [...] (L) | 41.0 - 53.0 % | [facility] | | | | | | LABORATORY [...] + + + + + | [facility] | [address] | [place] [address] | | | SERVICES, CORE | VILMA [...] + + + + | PRODUCT | [id number] | | [facility] | | | UNIT [...] + + + + | EXPIRATION | [id number] | | [facility] | | | DATE [...] + + + + | BLOOD | [id number] | | [facility] | | | PRODUCT [...] + + + + + | [facility] | [address] | [place] [address] | | | SERVICES, | [address] [...] [facility] | [address] | [place] [address] | | | SERVICES, CORE | [address] | | | + + + + + LACTATE (09/01/2017 4:19 PM PDT) + +-------+ + + + | Component | Value | Ref Range | Performed | Pathologist | | | | | At | Signature | + +-------+ + + + | LACTATE | 1.6 | mmol/L | [facility] | | | | | | LABORATORY [...] [facility] | [address] | [place] [address] | | | NATALEE WORTHINGTON | VILMA [...] + + + + + | [facility] | [address] | [place] [address] | | | SERVICES, CORE | VILMA [...] | | | LABORATORY | | | ENGLISH | | | SERVICES, | | | [...] | + + + + + | [facility] | [address] | [place] [address] | | | ELIN, CORE | VILMA [...] [facility] | [address] | [place] [address] | | | NATALEE WORTHINGTON | VILMA [...] | Previous result was 1.19 | | [facility], | | | | mmol/L on [...] received. Sample rejected due to air | [facility] | | contamination. Crediting patient. | LABORATORY | | | NATALEE WORTHINGTON | + + + + + + + + | Performing | Address | City/State/Zipcode | Phone Number | | Organization | | | | + + + + + | [facility] | [address] | [place] [address] | | | NATALEE WORTHINGTON | [address] [...] micropuncture access set was exchanged for a [email or web address] wire. Under | | | fluoroscopic guidance, a 5 Fr flush catheter was used to evaluate the | | | distal abdominal aorta and pelvic vasculature. A wire and catheter | | | were then used to select the left common and internal iliac arteries | | | from the right BPM ANALYST approach. DSA was performed from the left [...] | | iliac arteries from the right BPM ANALYST approach. DSA was performed from the left [...] and internal iliac arteries from the right BPM ANALYST approach. DSA was performed from the left [...] | [address] | [place], [place] | | | [facility] | [address] | [address] | | | TESTS | | | | + + + + + EXPLORATORY LAPAROTOMY (09/01/2017 12:31 PM PDT) + + + | Narrative | Performed At | + + + | Fidelina Shields MD 09/01/2017 12:42 PM BRIEF OPERATIVE NOTE: | | | Date: 09/01/2017 Author: Fidelina Shields MD | | | Attending Physician: Fidelina Shields MD Rug Receiving Clerk(s): Haim Peralta | | | , Vicente Butts MD, [facility] MS3 Prior to the | | [...] case. | | | Fidelina Shields MD Film Loader Division of Trauma, | | | Critical Care and Acute Care Surgery Office: [phone] Pager: | [phone] | [phone] | | + + + ABG-FULL ABL, [...] | [address] | [place], [place] | | | [facility] | [address] | [address] | | | TESTS | | | [...] [facility] | [address] | [place] [address] | | | NATALEE WORTHINGTON | VILMA [...] | | | | | mmol/L | [place] | | [...] | [address] | [place], [place] | | | [facility] | [address] | [address] | | | TESTS | | | [...] + + + + | PRODUCT | [id number] | | [facility] | | | UNIT [...] + + + + | EXPIRATION | [id number] | | [facility] | | | DATE [...] + + + + | BLOOD | [id number] | | [facility] | | | PRODUCT [...] [facility] | [address] | [place] [address] | | | SERVICES, | [address] [...] + + + + | PRODUCT | [id number] | | [facility] | | | UNIT [...] + + + + | EXPIRATION | [id number] | | [facility] | | | DATE [...] + + + + | BLOOD | [id number] | | [facility] | | | PRODUCT [...] [facility] | [address] | [place] [address] | | | SERVICES, | [address] [...] + + + + | PRODUCT | [id number] | | [facility] | | | UNIT [...] + + + + | EXPIRATION | [id number] | | [facility] | | | DATE [...] + + + + | BLOOD | [id number] | | [facility] | | | PRODUCT [...] + + + + + | [facility] | [address] | [place] [address] | | | SERVICES, | [address] [...] + + + + | PRODUCT | [id number] | | [facility] | | | UNIT [...] + + + + | EXPIRATION | [id number] | | [facility] | | | DATE [...] + + + + | BLOOD | [id number] | | [facility] | | | PRODUCT [...] + + + + + | [facility] | [address] | [place] [address] | | | SERVICES, | [address] [...] + + + + | PRODUCT | [id number] | | [facility] | | | UNIT [...] + + + + | EXPIRATION | [id number] | | [facility] | | | DATE [...] + + + + | BLOOD | [id number] | | [facility] | | | PRODUCT [...] | + + + + + | [facility] | [address] | [place] [address] | | | SERVICES, | [address] [...] + + + + | PRODUCT | [id number] | | [facility] | | | UNIT [...] + + + + | EXPIRATION | [id number] | | [facility] | | | DATE [...] + + + + | BLOOD | [id number] | | [facility] | | | PRODUCT [...] LABORATORY | [address] | [place] [address] | | | SERVICES, | [address] [...] + + + + | PRODUCT | [id number] | | [facility] | | | UNIT [...] + + + + | EXPIRATION | [id number] | | [facility] | | | DATE [...] + + + + | BLOOD | [id number] | | [facility] | | | PRODUCT [...] [facility] | [address] | [place] [address] | | | SERVICES, | [address] [...] + + + + | PRODUCT | [id number] | | [facility] | | | UNIT [...] + + + + | EXPIRATION | [id number] | | [facility] | | | DATE [...] + + + + | BLOOD | [id number] | | [facility] | | | PRODUCT [...] [facility] | [address] | [place] [address] | | | SERVICES, | [address] [...] + + + + | PRODUCT | [id number] | | [facility] | | | UNIT [...] + + + + | EXPIRATION | [id number] | | [facility] | | | DATE [...] + + + + | BLOOD | [id number] | | [facility] | | | PRODUCT [...] LABORATORY | [address] | [place] [address] | | | SERVICES, | [address] [...] + + + + | PRODUCT | [id number] | | [facility] | | | UNIT [...] + + + + | EXPIRATION | [id number] | | [facility] | | | DATE [...] + + + + | BLOOD | [id number] | | [facility] | | | PRODUCT [...] LABORATORY | [address] | [place] [address] | | | SERVICES, | [address] [...] + + + + | PRODUCT | [id number] | | [facility] | | | UNIT [...] + + + + | EXPIRATION | [id number] | | [facility] | | | DATE [...] + + + + | BLOOD | [id number] | | [facility] | | | PRODUCT [...] + + + + + | [facility] | [address] | [place] [address] | | | SERVICES, | [address] [...] + + + + | PRODUCT | [id number] | | [facility] | | | UNIT [...] + + + + | EXPIRATION | [id number] | | [facility] | | | DATE [...] + + + + | BLOOD | [id number] | | [facility] | | | PRODUCT [...] | + + + + + | [facility] | [address] | [place] [address] | | | SERVICES, | [address] [...] + + + + | PRODUCT | [id number] | | [facility] | | | UNIT [...] + + + + | EXPIRATION | [id number] | | [facility] | | | DATE [...] + + + + | BLOOD | [id number] | | [facility] | | | PRODUCT [...] + + + + + | [facility] | [address] | [place] [address] | | | SERVICES, | [address] [...] + + + + | PRODUCT | [id number] | | [facility] | | | UNIT [...] + + + + | EXPIRATION | [id number] | | [facility] | | | DATE [...] + + + + | BLOOD | [id number] | | [facility] | | | PRODUCT [...] | + + + + + | [facility] | [address] | [place] [address] | | | SERVICES, | [address] [...] + + + + | PRODUCT | [id number] | | [facility] | | | UNIT [...] + + + + | EXPIRATION | [id number] | | [facility] | | | DATE [...] + + + + | BLOOD | [id number] | | [facility] | | | PRODUCT [...] LABORATORY | [address] | [place] [address] | | | SERVICES, | [address] [...] + + + + | PRODUCT | [id number] | | [facility] | | | UNIT [...] + + + + | EXPIRATION | [id number] | | [facility] | | | DATE [...] + + + + | BLOOD | [id number] | | [facility] | | | PRODUCT [...] [facility] | [address] | [place] [address] | | | SERVICES, | [address] [...] + + + + | PRODUCT | [id number] | | [facility] | | | UNIT [...] + + + + | EXPIRATION | [id number] | | [facility] | | | DATE [...] + + + + | BLOOD | [id number] | | [facility] | | | PRODUCT [...] [facility] | [address] | [place] [address] | | | SERVICES, | [address] [...] + + + + | PRODUCT | [id number] | | [facility] | | | UNIT [...] + + + + | EXPIRATION | [id number] | | [facility] | | | DATE [...] + + + + | BLOOD | [id number] | | [facility] | | | PRODUCT [...] [facility] | [address] | [place] [address] | | | SERVICES, | [address] [...] + + + + | PRODUCT | [id number] | | [facility] | | | UNIT [...] + + + + | EXPIRATION | [id number] | | [facility] | | | DATE [...] + + + + | BLOOD | [id number] | | [facility] | | | PRODUCT [...] [facility] | [address] | [place] [address] | | | SERVICES, | [address] [...] + + + + | PRODUCT | [id number] | | [facility] | | | UNIT [...] + + + + | EXPIRATION | [id number] | | [facility] | | | DATE [...] + + + + | BLOOD | [id number] | | [facility] | | | PRODUCT [...] [facility] | [address] | [place] [address] | | | SERVICES, | [address] [...] + + + + | PRODUCT | [id number] | | [facility] | | | UNIT [...] + + + + | EXPIRATION | [id number] | | [facility] | | | DATE [...] + + + + | BLOOD | [id number] | | [facility] | | | PRODUCT [...] LABORATORY | [address] | [place] [address] | | | SERVICES, | [address] [...] + + + + | PRODUCT | [id number] | | [facility] | | | UNIT [...] + + + + | EXPIRATION | [id number] | | [facility] | | | DATE [...] + + + + | BLOOD | [id number] | | [facility] | | | PRODUCT [...] + + + + + | [facility] | [address] | [place] [address] | | | SERVICES, | [address] [...] + + + + | PRODUCT | [id number] | | [facility] | | | UNIT [...] + + + + | EXPIRATION | [id number] | | [facility] | | | DATE [...] + + + + | BLOOD | [id number] | | [facility] | | | PRODUCT [...] | + + + + + | [facility] | [address] | [place] [address] | | | SERVICES, | [address] [...] + + + + | PRODUCT | [id number] | | [facility] | | | UNIT [...] + + + + | EXPIRATION | [id number] | | [facility] | | | DATE [...] + + + + | BLOOD | [id number] | | [facility] | | | PRODUCT [...] | + + + + + | [facility] | [address] | [place] [address] | | | SERVICES, | [address] [...] + + + + | PRODUCT | [id number] | | [facility] | | | UNIT [...] + + + + | EXPIRATION | [id number] | | [facility] | | | DATE [...] + + + + | BLOOD | [id number] | | [facility] | | | PRODUCT [...] [facility] | [address] | [place] [address] | | | SERVICES, | [address] [...] + + + + | PRODUCT | [id number] | | [facility] | | | UNIT [...] + + + + | EXPIRATION | [id number] | | [facility] | | | DATE [...] + + + + | BLOOD | [id number] | | [facility] | | | PRODUCT [...] LABORATORY | [address] | [place] [address] | | | SERVICES, | [address] [...] + + + + + | [facility] | [address] | [place] [address] | | | SERVICES, NATALEE | [address] [...] | | | LABORATORY | | | ENGLISH | | | SERVICES, | | | [...] LABORATORY | [address] | [place] [address] | | | SERVICES, CORE | PARK [...] | + + + + + | [facility] | [address] | [place] [address] | | | SERVICES, CORE | [address] [...] - [facility] | [address] | [place], [place] | | | [facility] | [address] | [address] | | | TESTS | | | | + + + + + X-RAY PORTABLE CHEST 1 VIEW (09/01/2017 9:18 AM PDT) + + | Specimen | + + | | + + + + + | Narrative | Performed At | + + + | EXAM: IA CHEST 1 VIEW HISTORY: Intubated COMPARISON: 08/31/17 [...] Interface - 09/02/2017 1:23 PM PDT EXAM: IA CHEST 1 | | VIEW HISTORY: IntubatedCOMPARISON: [...] Note | + + | Service Account, Andera In Interface - 09/01/2017 1:40 PM PDT [...] + + + + | PRODUCT | [id number] | | [facility] | | | UNIT [...] + + + + | EXPIRATION | [id number] | | [facility] | | | DATE [...] + + + + | BLOOD | [id number] | | [facility] | | | PRODUCT [...] + + + + + | [facility] | [address] | [place] [address] | | | SERVICES, | [address] [...] + + + + | PRODUCT | [id number] | | [facility] | | | UNIT [...] + + + + | EXPIRATION | [id number] | | [facility] | | | DATE [...] + + + + | BLOOD | [id number] | | [facility] | | | PRODUCT [...] + + | [facility] | [address] | [place] [address] | | | SERVICES, | [address] [...] + + + + | PRODUCT | [id number] | | [facility] | | | UNIT [...] + + + + | EXPIRATION | [id number] | | [facility] | | | DATE [...] + + + + | BLOOD | [id number] | | [facility] | | | PRODUCT [...] LABORATORY | [address] | [place] [address] | | | SERVICES, | [address] [...] + + + + | PRODUCT | [id number] | | [facility] | | | UNIT [...] + + + + | EXPIRATION | [id number] | | [facility] | | | DATE [...] + + + + | BLOOD | [id number] | | [facility] | | | PRODUCT [...] [facility] | [address] | [place] [address] | | | SERVICES, | [address] [...] + + + + | PRODUCT | [id number] | | [facility] | | | UNIT [...] + + + + | EXPIRATION | [id number] | | [facility] | | | DATE [...] + + + + | BLOOD | [id number] | | [facility] | | | PRODUCT [...] [facility] | [address] | [place] [address] | | | SERVICES, | [address] [...] + + + + | PRODUCT | [id number] | | [facility] | | | UNIT [...] + + + + | EXPIRATION | [id number] | | [facility] | | | DATE [...] + + + + | BLOOD | [id number] | | [facility] | | | PRODUCT [...] LABORATORY | [address] | [place] [address] | | | SERVICES, | [address] [...] + + + + | PRODUCT | [id number] | | [facility] | | | UNIT [...] + + + + | EXPIRATION | [id number] | | [facility] | | | DATE [...] + + + + | BLOOD | [id number] | | [facility] | | | PRODUCT [...] [facility] | [address] | [place] [address] | | | SERVICES, | [address] [...] + + + + | PRODUCT | [id number] | | [facility] | | | UNIT [...] + + + + | EXPIRATION | [id number] | | [facility] | | | DATE [...] + + + + | BLOOD | [id number] | | [facility] | | | PRODUCT [...] + + + + + | [facility] | [address] | [place] [address] | | | ELIN, | [address] | | | | TRANSFUSION MEDICINE | | | | + + + + + CT HEAD WO CONTRAST (09/01/2017 8:42 AM PDT) + + | Specimen | + + | | + + + + + | Narrative | Performed At | + + + | EXAM: CT head without contrast HISTORY: Follow-up intracranial | [facility] | | hemorrhage. COMPARISON: Multiple prior head [...] + + + + | PRODUCT | [id number] | | [facility] | | | UNIT [...] + + + + | EXPIRATION | [id number] | | [facility] | | | DATE [...] + + + + | BLOOD | [id number] | | [facility] | | | PRODUCT [...] [facility] | [address] | [place] [address] | | | SERVICES, | [address] [...] | + + + + + | [facility] | [address] | [place] [address] | | | SERVICES, CORE | PARK [...] [facility] | [address] | [place] [address] | | | SERVICES, CORE | PARK [...] with | | | trauma ICU internet retailer by Dr. Yang at 4:38 AM. I [...] ligament is injured.Discussed with trauma ICU internet retailer | | by Dr. Yang at 4:38 AM.I have personally reviewed the images and, if necessary, | | edited the report. I agree with the report as now presented. | |3. Extensive soft tissue edema extending into the cervical and upper thoracic interspinous space, suggestive of interspinous ligament is injured. | | | |Discussed with trauma ICU internet retailer by Dr. Yang at 4:38 AM. | [...] | | | LABORATORY | | | ENGLISH | | | SERVICES, | | | [...] [facility] | [address] | [place] [address] | | | SERVICES, CORE [...] | + + + + + | [facility] | [address] | [place] [address] | | | SERVICES, CORE | PARK [...] [facility] | [address] | [place] [address] | | | SERVICES, CORE | PARK [...] + + + + + | [facility] | [address] | [place] [address] | | | [facility], [facility] | [address] | [...] pleural spaced was performed. A 32 size Turkish chest tube was | | | placed [...] ventricles. Discussed with the trauma ICU internet retailer at 12:12 AM by | | | [...] with | | the trauma ICU internet retailer at 12:[address] Yang.I have [...] | |Discussed with the trauma ICU internet retailer at 12:[address] Yang. | [...] | [address] | [place], [place] | | | [facility] | [facility] | [address] | | | TESTS | | | [...] [facility] | [address] | [place] [address] | | | SERVICES, CORE | PARK [...] | + + + + + | [facility] | [address] | [place] [address] | | | NATALEE [place] | [address] [...] | | + +---------+ + + | [facility] | | | | | [...] | + + + + + | [facility] | [address] | [place] [address] | | | SERVICES, [facility] | [address] | | | + + + + + X-RAY PORTABLE CHEST 1 VIEW (08/31/2017 7:07 PM PDT) + + | Specimen | + + | | + + + + + | Narrative | Performed At | + + + | STUDY: IA CHEST 1 VIEW HISTORY: Trauma COMPARISON: CT CAP | [facility] | | 08/31/2017 FINDINGS: Endotracheal tube [...] Interface - 09/01/2017 1:44 PM PDT STUDY: IA CHEST 1 | | VIEWHISTORY: TraumaCOMPARISON: CT [...] | | + +---------+ + + | [facility] | | | | | [...] | + + + + + | [facility] | [address] | [place] [address] | | | SERVICES, CORE | [address] [...] rib, nondisplaced-Left | | 1st rib fracture, przibddvakwm-Mvj-bxacpbbao left lateral 8th rib fracture-T12 fracture | [...] Cervical, THORACIC, AND LUMBAR SPINE WITHOUT CONTRAST, 05/05/18 | [facility] | | 18:18:17 ADDITIONAL HISTORY: [...] Note | + + | Service Account, Biomatricaant Res In Interface - 08/31/2017 8:10 PM [...] results discussed with Dr. Shaw by Dr. Madrigla at time of dictation. | | | [...] + + + + + | [facility] | [address] | [place] [address] | | | SERVICES, | [address] [...] [facility] | [address] | [place] [address] | | | SERVICES, | [address] [...] LABORATORY | [address] | [place] [address] | | | SERVICES, | [address] [...] normal. Depressed MA corresponds to decreased | [place], | | clot strength suggesting HYPOcoagulability. [...] - [facility] | [address] | [place], [place] | | | [facility] | [address] | [address] | | | TESTS | | | [...] + + + | [facility] | [address] | [place], [place] | | | [facility] | [address] | [address] | | | TESTS | | | [...] | [address] | [place], [place] | | | [facility] | [facility] | [address] | | | TESTS | | | [...] [facility] | [address] | [place], [place] | | | [facility] | [facility] | [address] | | | TESTS | | | [...] + + + + | PRODUCT | [id number] | | [facility] | | | UNIT [...] + + + + | EXPIRATION | [id number] | | [facility] | | | DATE [...] + + + + | BLOOD | [id number] | | [facility] | | | PRODUCT [...] [facility] | [address] | [place] [address] | | | SERVICES, | [address] [...] + + + + | PRODUCT | [id number] | | [facility] | | | UNIT [...] + + + + | EXPIRATION | [id number] | | [facility] | | | DATE [...] + + + + | BLOOD | [id number] | | [facility] | | | PRODUCT [...] [facility] | [address] | [place] [address] | | | SERVICES, | [address] [...] + + + + | PRODUCT | [id number] | | [facility] | | | UNIT [...] + + + + | EXPIRATION | [id number] | | [facility] | | | DATE [...] + + + + | BLOOD | [id number] | | [facility] | | | PRODUCT [...] | + + + + + | [facility] | [address] | [place] [address] | | | SERVICES, | [address] [...] + + + + | PRODUCT | [id number] | | [facility] | | | UNIT [...] + + + + | EXPIRATION | [id number] | | [facility] | | | DATE [...] + + + + | BLOOD | [id number] | | [facility] | | | PRODUCT [...] + + + + + | [facility] | [address] | [place] [address] | | | SERVICES, | [address] [...] + + + + | PRODUCT | [id number] | | [facility] | | | UNIT [...] + + + + | EXPIRATION | [id number] | | [facility] | | | DATE [...] + + + + | BLOOD | [id number] | | [facility] | | | PRODUCT [...] + + + + + | [facility] | [address] | [place] [address] | | | SERVICES, | [address] [...] + + + + | PRODUCT | [id number] | | [facility] | | | UNIT [...] + + + + | EXPIRATION | [id number] | | [facility] | | | DATE [...] + + + + | BLOOD | [id number] | | [facility] | | | PRODUCT [...] + + + + + | [facility] | [address] | [place] [address] | | | SERVICES, | [address] [...] + + + + | PRODUCT | [id number] | | [facility] | | | UNIT [...] + + + + | EXPIRATION | [id number] | | [facility] | | | DATE [...] + + + + | BLOOD | [id number] | | [facility] | | | PRODUCT [...] + + + + + | [facility] | [address] | [place] [address] | | | SERVICES, | [address] [...] + + + + | PRODUCT | [id number] | | [facility] | | | UNIT [...] + + + + | EXPIRATION | [id number] | | [facility] | | | DATE [...] + + + + | BLOOD | [id number] | | [facility] | | | PRODUCT [...] LABORATORY | [address] | [place] [address] | | | SERVICES, | [address] [...] + + + + + | [facility] | [address] | [place] [address] | | | SERVICES, NATALEE | [address] [...] | | | LABORATORY | | | ENGLISH | | | SERVICES, | | | [...] + + + + + | [facility] | [address] | [place] [address] | | | SERVICES, CORE | [address] [...] valves (2.5 - 3.5) INR APTT | [facility], CORE | | Therapeutic Range: (75 - 120) sec | | | Heparin levels of 0.35 - 0.7 U/mL | | + + + + + + + + | Performing | Address | City/State/Zipcode | Phone Number | | Organization | | | | + + + + + | [facility] | [address] | [place] [address] | | | EL[place], [facility] | [address] | [...] [facility] | [address] | [place] [address] | | | SERVICES, CORE | PARK [...] + + + + + | [facility] | [address] | [place] [address] | | | SERVICES, NATALEE | [address] [...] + + + + + | [facility] | [address] | [place] [address] | | | SERVICES, CORE | [address] [...] Until Fri | | | 12/06/17 at 2052, Nurse Initiated | | | Order - [...] | | | 0743, Until Sat12/06/17 at 2, | | | | | | | [...]
--- OUTSIDE RECORDS SUMMARY | ~2019-12-25 | XMS | Encounter Summary ---
Demographics + + + | Address | [address] | | | [place] [address] | + + + | Home Phone [...] + + | Author | [facility] | + + + | Organization | [facility] [...] Team Providers + +------+ + | Care Tongue Binder Name | Role | Phone | + [...] [place] | | | | | Guy [facility] | [address] | | | | | Hospital Admitting | [place], [place] | | | | | Desk Located on the | [address] | | | | | 9th floor | [phone] | | | | | [place], [place] | | | | | | [address] | Rg Arriola, | | | | | | [facility] [address] | | | | | | [address] | | | | | | [place], [place] | | | | | | [address] | | | | | | [phone] | | | | | | | [...] centrally accessed); | | | | | [id number]; 10/22/17; 1542; | | | | | [...] 1733 by | | g Tube | (GABRIEL-VALODVINOS low profile g-tube 18 fr | Katrin [...] - 10/10/2017 7:35 PM [facility]TRus[facility] [id number] No Known Allergies No past surgical history [...] be different from the original. [place] [facility] [id number] No Known Allergies NPO:NPO Status: since admission [...] Date RATE 117 10/10/2017 ATRIALRATE 118 10/10/2017 ME 139 10/10/2017 QRS 134 10/10/2017 QT 354 [...] Action > 10/10/17735 Rg Arriola CRNA Nurse Hot Blast Worker Sign 10/10/17700 Rg Arriola CRNA Nurse Hot Blast Worker Share Anesthesia Plan Comments ASA ASA 4 [...] this encounter Miscellaneous Notes Addendum Note - Jvue Menjivar MD - 10/11/2017 7:07 AM PDTFormatting of this note shaun ht be different from the original. Addendum created 10/11/17706 by Juve Menjviar MD Anesthesia Attestations filed [facility] PreOp Not [...] 10:28 | | | | | Starting [facility] 10/10/17 at 1028, | | AM [...] PDT | | | | | Until [facility] 10/10/17 at 1244 | | | [...]
--- OUTSIDE RECORDS SUMMARY | ~2019-12-25 | XMS | Encounter Summary ---
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 spine shows multiple fractures with most concerning fracture at C7 lamina with canal i ntrusion. Patient being managed in C collar and PIPE ORGAN TUNER AND REPAIRER. -Developed drainage from previous crani site on 09/23 and concern for possible neuro exam ch sonny. Repeat imaging was stable. Wound sutured at bedside, but now with recurrent wound disc harge. - proceed to OR today for revision - AEDs per primary team or Neurology Sami Maldonado MD Neurosurgery, PGY-2 On-call resident pager [phone] 7:33 AM 10/10/2017 Dallin Deshpande MD - [...] agent? No Dallin Bourgeois MD Neurosurgery PGY1 [id number] riva, Venita Rod PA-C - 10/09/2017 12:57 [...] - patient unable to come out of PIPE ORGAN TUNER AND REPAIRER for now - Will likely need for [...] previous cranioplasty site. Venita Pruitt PA-[place] [phone] [facility] [place] [phone] [facility] [place] [address] Associated attestation - Chaz Hernandez MD - 10/09/2017 3:04 PM PDTI saw and examined th e patient today with Venita Pruitt PA-C, and agree with the assessement and plan as outlined in her note. Plan takeback with NSG, we will place Gabriel-oconnor feeding tube at that time. Chaz Hernandez MD, FACS Software Applications Engineer, Trauma, Critical Care and Acute Care Surgery Sherine Sarmiento, [facility] - 10/08/2017 6:21 AM PDTFormatting [...] - patient unable to come out of PIPE ORGAN TUNER AND REPAIRER for now - Will likely need for [...] by patient, but wound remains cl zeferino/dry/intact. [place] removed 09/17. #Left hemothorax Chest tube placed [...] [place] [phone] [facility] & [place] [address] [place] [address] [phone] Associated attestation - Chaz Hernandez MD - 10/08/2017 12:16 PM PDTI saw and examined th e patient today with KESHAWN Martin, and agree with the assessement and plan a s outlined in her note. No acute events. Seems to be slowly improving from MS. Appreciate ps ychiatry recs. Chaz Hernandez MD, FACS Software Applications Engineer, Trauma, Critical Care and Acute [...] - patient unable to come out fo PIPE ORGAN TUNER AND REPAIRER for now - Will likely need for [...] [place] [address] [facility] [place] [address] [place] [address] [phone] Associated attestation - Chaz Hernandez MD - 10/07/2017 11:15 AM PDTI saw and examined th e patient today with KESHAWN Martin, and agree with the assessement and plan a s outlined in her note. Will consider changing to bolus TF. Plan Gabriel-oconnor tube next week. Chaz Hernandez MD, FACS Software Applications Engineer, Trauma, Critical Care and Acute [...] p atient unable to come out fo PIPE ORGAN TUNER AND REPAIRER for now Resolved or chronic issues/Plan: #Previous [...] issues, including restraints. Venita Pruitt PA-[place] [phone] [place] [phone] [facility] [address] [place] [address] [phone] Associated attestation - Em Cunningham MD - 10/17/2017 10:13 AM PDTI was present and rou nded with the Advanced Practice Provider today . I interviewed and examined the patient. I reviewed the history, as documented today. I agree with the ASHLEY assessment and plan. TBI has remained stable. On lovenox. Will continue haldol per psych.. EM CUNNINGHAM MD [facility] [address] [place] [address] [address] [place] [address] Venita Pruitt PA-C - 10/05/2017 8:38 AM [...] p atient unable to come out fo PIPE ORGAN TUNER AND REPAIRER for now Resolved or chronic issues/Plan: #Previous [...] by patient, but wound remains duke n/dry/intact. [place] removed 09/17. #Left hemothorax Chest tube placed [...] issues, including restraints. Venita Pruitt PA-[place] [phone] [place] [phone] [facility] & [place] [address] [address] [facility] [place] [phone] Associated attestation - Shlomo Bravo MD - 10/06/2017 7:28 AM PDTFormatting of this note m ight be different from the original. I saw and examined Diogenes Temple ([id number]) with the TRAUMA team on 10/05/2017. I [...] and incen tive spirometry for pulmonary toliet. dental practice manager for disposition planning and placement. Shlomo Bravo MD Denitrator Operator Division of Trauma and Critical Care [...] (baseline from previous TBI ) Neck: in [place] collar Respiratory: CTA b.l CV: RRR GI: [...] p atient unable to come out fo PIPE ORGAN TUNER AND REPAIRER for now Resolved or chronic issues/Plan: #Previous [...] by patient, but wound remains duke n/dry/intact. [place] removed 09/17. #Left hemothorax Chest tube placed [...] issues, including restraints. Venita Pruitt PA-[place] [phone] [place] [phone] [facility] & [address] [place] [address] [phone] Associated attestation - Fidelina Shields MD - 10/04/2017 10:27 PM PDTAttending: I saw and examined Diogenes eTmple with Venita Pruitt PA-C on morning rounds [...] and only enteral access. Fidelina Shields MD Software Applications Engineer Division of Trauma, Critical Care and Acute Care Surgery Office: [phone] Pager: [phone] Leonor Torres ACNP - 10/03/2017 3:13 PM [...] (baseline from previous TBI ) Neck: in [place] collar Respiratory: CTA bilaterally, no distress CV: [...] p atient unable to come out fo PIPE ORGAN TUNER AND REPAIRER for now Resolved or chronic issues/Plan: Previous [...] by patient, but wound remains duke n/dry/intact. [place] removed 09/17. #Left hemothorax Chest tube placed [...] PDTAttending: I saw and examined Diogenes Temple ([id number]) with CB Hair on morning rounds 10/03 and agree with the assessment and plan as outlined in this note and participated in the planning of care. Mental status is slightly better, remains sedated but he is interactive and at least somewh at oriented. Enteral nutrition advancing and, as approaches goal, will turn TPN off. Place ment remains a significant issue. Fidelina Shields MD Software Applications Engineer Division of Trauma, Critical Care and Acute Care Surgery Office: [phone] Pager: [phone] July Harp PA-C - 10/03/2017 12:58 PM [...] the C-collar when in bed then the PIPE ORGAN TUNER AND REPAIRER when out of bed until 12/01/17. JULY HARP PA-C [facility] [address] [facility] [address] [place] [address] Associated attestation - Magdiel Stock MD - 10/04/2017 6:02 PM PDTI performed a history a nd physical examination of the patient and discussed the management with the advanced practi ce provider, July Harp PA-C. I reviewed the advanced practice provider's note and agree w ith the plan of care as documented. Continue cervical collar and PIPE ORGAN TUNER AND REPAIRER for 3 months to ensure fracture healing and prevent development of post-fracture cervical kyphosis. Magdiel Stock MD Software Applications Engineer Department of Neurological Surgery [facility] [place] Sherine Sarmiento [facility] - 10/02/2017 12:54 PM PDTFormatting [...] (baseline from previous TBI ) Neck: in [place] collar Respiratory: CTA bilaterally, lungs symmetrical, equal chest wall rise, no retractions CV: RRR GI: non tender, soft, active BS, last BM 09/30 : Patient voiding without difficulty Extremities: no peripheral edema, wiggles toes and toes pink and well perfused Musculoskeletal: 5/5 yarn man strength on right, 3/5 yarn man strength on left FEN: on TPN, transitioning [...] AMS & delirium - numerous evaluations by REEXAMINER with trials of PO - now s/p [...] . - C-collar at all times, use PIPE ORGAN TUNER AND REPAIRER when OOB - Follow-up with Neurosurgery on 10/21 with repeat X-rays #Blunt abdominal trauma #Splenic laceration S/p laparotomies x2. Fascia closed 09/02 Wound vac removed by patient, but wound remains duke n/dry/intact. [place] removed 09/17. #Left hemothorax Chest tube placed [...] will decrease [place]g [phone] Associated attestation - Fidelina Shields MD - 10/02/2017 4:40 PM PDTAttending: I saw and examined Diogenes Temple ([id number]) with KESHAWN Alexander on mornin g rounds [...] back to midline position. May need termite helper enteral access , but is ~4 weeks s/p damage control laparotomy and risk is higher now than it will be in 7- 14 days and if swallow is not improving then will place prior to DC Fidelina Shields MD Software Applications Engineer Division of Trauma, Critical Care and Acute Care Surgery Office: [phone] Pager: [phone] Sherine Sarmiento AGACNP - 10/01/2017 7:27 AM PDTFormatting of this note might be d ifferent from the original. Trauma Acute Care - Progress Note Name: DIOGENES ETMPLE HPI: Diogenes Temple is a67 y.o. male [...] (baseline from previous TBI ) Neck: in [place] collar Respiratory: CTA bilaterally, lungs symmetrical, equal chest wall rise, no retractions CV: RRR GI: non tender, soft, active BS, last BM 09/30 : Patient voiding without difficulty Extremities: no peripheral edema, wiggles toes and toes pink and well perfused Musculoskeletal: 5/5 yarn man strength on right, 3/5 yarn man strength on left FEN: on TPN Heme/ID: [...] AMS & delirium - numerous evaluations by REEXAMINER with trials of PO - now s/p modified barium swallow x2 which indicates aspiration - continue NPO - REEXAMINER reports that patient working on tongue strength [...] . - C-collar at all times, use PIPE ORGAN TUNER AND REPAIRER when OOB - Follow-up with Neurosurgery on 10/21 with repeat X-rays #Blunt abdominal trauma #Splenic laceration S/p laparotomies x2. Fascia closed 09/02 Wound vac removed by patient, but wound remains duke n/dry/intact. [place] removed 09/17. #Left hemothorax Chest tube placed [...] trauma team [place]g [phone] Associated attestation - Fidelina Shields MD - 10/02/2017 4:40 PM PDTAttending: I saw and examined Diogenes Temple ([id number]) with KESHAWN Alexander on mornin g rounds 10/01/17 and agree with the assessment and plan as outlined in this note and partic ipated in the planning of care. Will trial DHT placement today, CT head unchanged. Suspect somnolence is medication side ef fect and, if persistent, may need to wean antipsychotic doses. Fidelina Shields MD Software Applications Engineer Division of Trauma, Critical Care and Acute Care Surgery Office: [phone] Pager: [phone] Christian Kelley PA-C - 09/30/2017 12:21 PM [...] Fixed and dilated on left Neck: in [place] collar Respiratory: CTA bilaterally, lungs symmetrical, equal chest wall rise, no retractions CV: RRR GI: non tender, soft, active BS, last BM 09/30 : Patient voiding without difficulty Extremities: no peripheral edema, wiggles toes and toes pink and well perfused Musculoskeletal: 5/5 yarn man strength on right, 3/5 yarn man strength on left FEN: on TPN Heme/ID: [...] AMS & delirium - numerous evaluations by REEXAMINER with trials of PO - now s/p modified barium swallow x2 which indicates aspiration - continue NPO - REEXAMINER reports that patient working on tongue strength [...] . - C-collar at all times, use PIPE ORGAN TUNER AND REPAIRER when OOB - Follow-up with Neurosurgery on [...] PDTAttending: I saw and examined Diogenes Temple ([id number]) with Christian Kelley PA-C on morning rounds 09/30 and agree with the assessment and plan as outlined in this note and participated in the planning of care. Mentally slower this morning, but non-focal. Received haldol overnight for sleep. Repeat head CT was unchanged so suspect etiology of slowed responsiveness is the antipsychotic dose . REEXAMINER believes that, once collar off, may be able to take PO more effectively and thus will hold off on surgical feeding access. TPN is a temporary solution and if patient remains kaye nable will trial DHT tomorrow. Working with psychiatry for medication recommendations. Fidelina Shields MD Software Applications Engineer Division of Trauma, Critical Care and Acute Care Surgery Office: [phone] Pager: [phone] July Harp PA-C - 09/30/2017 8:23 AM PDTBrief Neurosurgery Wound Check: Wound is dry, without erythema, not fluctuant. No acute swelling. Nylon in place. Will plan to follow peripherally for wound checks and remove nylons on 10/09. JULY HARP PA-C [facility] [address] [place] [address] Christian Begum PA-C - 09/29/2017 7:15 AM [...] and EOMs intact to exam Neck: in [place] collar Respiratory: CTA bilaterally, lungs symmetrical, equal [...] AMS & delirium - numerous evaluations by REEXAMINER with trials of PO - now s/p [...] . - C-collar at all times, use PIPE ORGAN TUNER AND REPAIRER when OOB - Follow-up with Neurosurgery on [...] PDTAttending: I saw and examined Diogenes Temple ([id number]) with Christian Kelley PA-C on morning rounds [...] in conjunction with psychiatry. Fidelina Shields MD Software Applications Engineer Division of Trauma, Critical Care and Acute Care Surgery Office: [phone] Pager: [phone] Christian Kelley PA-C - 09/28/2017 1:01 PM [...] he said, who, ariel? And then the PRODUCT DEMONSTRATOR helped him make a call to her. [...] and EOMs intact to exam Neck: in [place] collar Respiratory: CTA bilaterally, lungs symmetrical, equal [...] very agitated today. - EKG today with [place] QTc calculated to be 428 - optimize [...] AMS & delirium - numerous evaluations by REEXAMINER with trials of PO - now s/p [...] . - C-collar at all times, use PIPE ORGAN TUNER AND REPAIRER when OOB - Follow-up with Neurosurgery on 10/21 with repeat X-rays #Blunt abdominal trauma #Splenic laceration S/p laparotomies x2. Fascia closed 09/02 Wound vac removed by patient, but wound remains duke n/dry/intact. [place] removed 09/17. #Left hemothorax Chest tube placed [...] more toda y. Chaz Hernandez MD, FACS Software Applications Engineer, Trauma, Critical Care and Acute Care Surgery Chaz Hernandez MD - 09/28/2017 10:13 AM PDTTrauma Staff Seen and examined this AM with team. I have concerns abotu behaviour, as he is consistently threatening RN and ancillary staff, even attempting swings. Behavior seems worse at night. I would favor increasing night time Haldol dose, and following EKGs. Chaz Hernandez MD, FACS Software Applications Engineer, Trauma, Critical Care and Acute [...] Dallin Bourgeois MD Neurosurgery PGY1 | Pager #[phone] Christian Begum PA-C - 09/27/2017 7:31 AM [...] able to have a linear conversation briefly REEXAMINER requesting repeat barium swallow Current meds: I [...] incision healing , suture c/d/I Neck: in PIPE ORGAN TUNER AND REPAIRER Respiratory: unlabored on room air, lungs symmetrical, [...] AMS & delirium - numerous evaluations by REEXAMINER with trials of PO - now s/p [...] . - C-collar at all times, use PIPE ORGAN TUNER AND REPAIRER when OOB - Follow-up with Neurosurgery on [...] cotinue TPN for now. EM CUNNINGHAM MD [facility] [address] [facility] [address] [place] [address] Christian Kelley PA-C - 09/26/2017 6:48 AM PDTFormatting of this note might be different fro m the original. Trauma Acute Care - Progress Note Name: IDOGENES TEMPLE HPI: Diogenes Temple is a67 y.o. [...] posterior scalp crani incision c/d/I Neck: in [place] collar Respiratory: unlabored on room air CV: [...] AMS & delirium - numerous evaluations by REEXAMINER with trials of PO - now s/p [...] . - C-collar at all times, use PIPE ORGAN TUNER AND REPAIRER when OOB - Follow-up with Neurosurgery on 10/21 with repeat X-rays #Blunt abdominal trauma #Splenic laceration S/p laparotomies x2. Fascia closed 09/02 Wound vac removed by patient, but wound remains duke n/dry/intact. [place] removed 09/17. #Left hemothorax Chest tube placed [...] Continue NPO and TPN. EM CUNNINGHAM MD [facility] [address] [place] [address] Christian Kelley PA-C - 09/25/2017 7:49 AM [...] HEENT: EOMs intact to exam Neck: in PIPE ORGAN TUNER AND REPAIRER brace Respiratory: unlabored on room air CV: [...] AMS & delirium - numerous evaluations by REEXAMINER with trials of PO - now s/p [...] . - C-collar at all times, use PIPE ORGAN TUNER AND REPAIRER when OOB - Follow-up with Neurosurgery on [...] LFTS wnl. Continue TPN. EM CUNNINGHAM MD [facility] [address] [place] [address] Christian Kelley PA-C - 09/24/2017 11:07 AM [...] with agitation Having difficulty swallowing again - REEXAMINER to re-eval and obtain barium swallow Current [...] HEENT: EOMs intact to exam Neck: in PIPE ORGAN TUNER AND REPAIRER brace Respiratory: CTA bilaterally, lungs symmetrical, equal chest wall rise, no retractions CV: RRR GI: non distended, last BM 09/23 : good urine output Extremities: SCD's in place, no peripheral edema, wiggles toes and toes pink and well perfu sed Musculoskeletal: 5/5 strength in bilateral yarn man (but with slightly weaker on left) , [...] seroquel dose QHS for insomnia/restlessness at [facility] - Haldol 5mg q12hr prn for [...] likely 2/2 AMS & delirium - Failed REEXAMINER eval 09/19 & 09/20, made NPO & dobhoff reinserted 09/21 but pulled overnight - Per REEXAMINER on 09/21, ok for therapeutic pureed with [...] . - C-collar at all times, use PIPE ORGAN TUNER AND REPAIRER when OOB - Follow-up with Neurosurgery on 10/21 with repeat X-rays #Blunt abdominal trauma #Splenic laceration S/p laparotomies x2. Fascia closed 09/02 Wound vac removed by patient, but wound remains duke n/dry/intact. [place] removed 09/17. #Left hemothorax Chest tube placed [...] Start abx for dehiscence. EM CUNNINGHAM MD [facility] [address] [place] [address] Ginette Campos PA-C - 09/24/2017 9:31 AM [...] 4 extremities Unable to assess drift. Motor: Cushion Maker Bicep Tricep Delt R 5 5 5 [...] further questions or concerns. Ginette Campos PA-C [facility] [address] [place] [address] [facility] Hospital[facility] At[facility] AGAEDUIN - 09/23/2017 6:32 AM PDT [...] hiscence, draining minimal serosang fluid Neck: in PIPE ORGAN TUNER AND REPAIRER brace Respiratory: unlabored on room air CV: [...] seroquel dose QHS for insomnia/restlessness at [facility] - Repeat ECG 09/22 with QTc [...] likely 2/2 AMS & delirium - Failed REEXAMINER eval 09/19 & 09/20, made NPO & dobhoff reinserted 09/21 but pulled overnight - Per REEXAMINER on 09/21, ok for therapeutic pureed with [...] . - C-collar at all times, use PIPE ORGAN TUNER AND REPAIRER when OOB - Follow-up with Neurosurgery on [...] dysphagia & delir ium improves Sherine Sarmiento, [facility] [place] [phone] Dallin Deshpande MD - 09/22/2017 8:03 AM [...] Dallin Bourgeois MD Neurosurgery PGY1 | Pager #[phone] ELLMilly Sherine Madiha, AGACNP - 09/22/2017 6:52 [...] 24hr events: - Therapeutic purees initiated by REEXAMINER yesterday - Trickle feeds via Dobbhoff, pt pulled Dobbhoff yesterday evening- not replaced - COMPUTER PATTERNMAKER called around 2130 for new left facial droop (see separate notes), CT revealed increa se in SDH from 12 to 17mm with no change in midline shift. Exam stabilized [facility] - NSG and stroke team [...] sluggish. Slight left facial droop Neck: in [place] collar Respiratory: unlabored on room air CV: [...] seroquel dose QHS for insomnia/restlessness at [facility]- - Repeat ECG 09/22 with Q Tc WNL. - Haldol 5mg q12hr prn for severe agitation #Substance abuse, concern for Alcohol withdrawal - CIWA discontinued 09/08, not scoring. - Thiamine & folate started 09/21 #Dysphagia, risk for aspiration #Protein calorie malnutirtion - likely 2/2 AMS & delirium - Failed REEXAMINER eval 09/19 & 09/20, made NPO & dobhoff reinserted 09/21 but pulled overnight - Per REEXAMINER on 09/21, ok for therapeutic pureed with [...] . - C-collar at all times, use PIPE ORGAN TUNER AND REPAIRER when OOB - Follow-up with Neurosurgery on [...] when dysphagia & delirium improves Sherine Sarmiento, [facility] [place]g [phone] Associated attestation - Nubia Nieto MD,MPH - [...] Trauma, Critical Care & Acute Care Surgery [facility] [phone] Sami Black - 09/21/2017 10:25 PM PDTBrief [...] in the morning. Plan: -neuro checks; page [phone] for any decline in neurological examination -pain control -Hard C collar at all times and place PIPE ORGAN TUNER AND REPAIRER prior to mobilizing OOB. Anticipated duration of Collar/PIPE ORGAN TUNER AND REPAIRER is 12 weeks -repeat CT head for any new decline in neurological exam and page [phone] -NPO at midnight tonight -please hold tonight's planned dose of Lovenox -further recommendations in the morning Sami Black MD, PhD PGY-3 Resident Neurosurgery [id number] signed by Sami Black at 09/21/2017 10:50 PM PDTCleSherine estrella [facility]IL[facility] - 09/21/2017 7:10 AM PDTFormatting of this [...] Provena placem ent 24hr events: - Failed REEXAMINER eval again yest morning, continued NPO - [...] reactive. Dobbhoff tube in place Neck: in [place] collar Respiratory: unlabored on room air CV: [...] likely 2/2 AMS & delirium - Failed REEXAMINER eval 09/19 & 09/20, made NPO & dobhoff reinserted yesterday - Trickle feeds started this am at 20ml/hr, increase very slowly by 10ml every 12 hrs to go al of 75 due to hx of mesenteric hematomas and previous inability to tolerate TF - Per REEXAMINER today, ok for therapeutic pureed with nectar [...] . - C-collar at all times, use PIPE ORGAN TUNER AND REPAIRER when OOB - Follow-up with Neurosurgery on [...] & delirium [place]g [phone] Associated attestation - Fidelina Shields MD - 09/21/2017 9:36 PM PDTAttending: I saw and examined Diogenes Temple ([id number]) with KESHAWN Alexander on mornin g rounds [...] enough to re-trial PO. Fidelina Shields MD Software Applications Engineer Division of Trauma, Critical Care and Acute Care Surgery Office: [phone] Pager: [phone] Sherine Sarmiento AGACNP - 09/20/2017 7:41 AM [...] haldol given yesterday afternoon for agitation - REEXAMINER paged to re-eval in afternoon after concern for aspiration, made NPO by REEXAMINER - DARNELL SOLANO Current meds: I have [...] right pupil 3 and reactive Neck: in [place] collar Respiratory: unlabored on room air CV: [...] thick/pureed d iet. Made NPO yesterday by REEXAMINER after concern for aspiration. This is likely 2/2 waxing & wan ing delirium & AMS - REEXAMINER re-eval today recommend continue NPO d/t overt clinical signs of aspiration - Place Dobbhoff tube and restart feeds, slowly progress to goal - Stop TPN when tolerating tube feeds - REEXAMINER will follow closely, as his AMS improves [...] . - C-collar at all times, use PIPE ORGAN TUNER AND REPAIRER when OOB - Follow-up with Neurosurgery on [...] & delirium i [place] Pg [phone] Associated attestation - Fidelina Shields MD - 09/20/2017 9:34 PM PDTAttending: I saw and examined Diogenes Temple ([id number]) with KESHAWN Alexander on mornin g rounds [...] dispo planning when able. Fidelina Shields MD Software Applications Engineer Division of Trauma, Critical Care and Acute Care Surgery Office: [phone] Pager: [phone] Mary Medrano MD,MPH - 09/19/2017 6:22 AM [...] downgraded from thin to thick liquids by REEXAMINER Current meds: I have independently reviewed current [...] intact, small Right fluctuant pseudomeningocele Neck: in [place] collar Respiratory: unlabored on room air CV: [...] DHT on09/19. - Cleared for diet by REEXAMINER, tolerating purees, 749 Calories yesterday - Restart Calorie count: if taking >700 again will be OK for full po diet, otherwise replac e DHT and restart TF - Stop TPN tomorrow regardless - Still considering repeat CT abdomen/pelvis #Dysphagia DHTreplaced overnight 09/07. TF held due to emesis and possible ileus, aspiration risk. DH T pulled overnight on 09/18 - REEXAMINER as able Resolved or chronic issues/Plan: #BIG 3 TBI #Right synthetic cranioplasty Neurosurgery consulted. Non-operative management. Last head CT 09/12 stable. Expected pseudo meningocele. Left-sided deficits consistent with baseline. - Stat head CT for any neurologic decline #C7 bilateral lamina fractures #C6-T2 spinous process fractures Neurosurgery consulted. Non-operative management. Upright cervical X-rays completed on 09/14 . - C-collar at all times, use PIPE ORGAN TUNER AND REPAIRER when OOB - Follow-up with Neurosurgery on [...] M.D., M.P.H. Neurological Surgery Resident PGY-1 Pager: [phone] Associated attestation - Fidelina Shields MD - 09/19/2017 1:36 PM PDTAttending: I saw and examined Diogenes Temple ([id number]) with the residents on morning rounds 09/19/17 and agree with the assessment and plan as outlined in this note and participated in the plan aashish of care. Improving po intake, will titrate TPN. Plan to DC TPN tomorrow and transition to PO vs PO + TF depending on calorie counts. Once of restraints will begin looking for placement. Fidelina Shields MD Software Applications Engineer Division of Trauma,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 [facility] - | [address] | [place] [address] | | | [place] | | | [...] [facility] | [address] | [place] [address] | | | SERVICES, CORE | PARK [...] | + + + + + | [facility] | [address] | [place] [address] | | | SERVICES, CORE | PARK [...] [facility] | [address] | [place] [address] | | | SERVICES, CORE | PARK [...] | | | LABORATORY | | | ETHIOPIAN | | | SERVICES, | | | [...] the MDRD equation recommended by the | [facility] | | National Kidney [...] | + + + + + | [facility] | [address] | [place] [address] | | | SERVICES, CORE | [address] | | | + + + + + MAGNESIUM, PLASMA (10/28/2017 5:29 AM PDT) + +-------+ + + + | Component | Value | Ref Range | Performed | Pathologist | | | | | At | Signature | + +-------+ + + + | MAGNESIUM,P | 1.8 | 1.6 - 2.6 mg/dL | [facility] | | | LASMA [...] [facility] | [address] | [place] [address] | | | SERVICES, NATALEE | V[place] [...] - [facility] | [address] | [place], [place] | | | [facility] | [address] | [address] | | | TESTS | | | [...] (H) | 70 - 99 mg/dL | [facility] - | | | [...] [facility] | [address] | [place], [place] | | | GLORIA GENAO OF [facility] | [address] | [address] | | | TESTS | | | [...] At | + + + | EXAM: MN CHEST PICC LINE CHECK HISTORY: picc done [...] Interface - 10/27/2017 6:29 PM PDT EXAM: MN CHEST | | PICC LINE CHECK HISTORY: [...] and TPN Procedure | | | location: Unit:[facility] Room: 4 Providers: Attending name: | [...] correct | | | patient, procedure, equipment, field support engineer and site/side marked as | | | [...] vein. Catheter lot number: | | | [id number] with a length of 55 cm was [...] [facility] | [address] | [place], [place] | | | [facility] | [address] | [address] | | | TESTS | | | [...] DEPT OF | [address] | [place], [place] | | | CARDIOLOGY | [address] | [address] | | + + + + + [...] MAR[facility] | [address] | [place], [place] | | | [facility] | [address] | [address] | | | TESTS | | | [...] | + + + + + | [facility] | [address] [facility] | [place] [address] | | | SERVICES, NATALEE | [address] [...] | | | LABORATORY | | | ETHIOPIAN | | | SERVICES, | | | [...] | + + + + + | [facility] | [address] | [place] [address] | | | SERVICES, CORE | VILMA [...] [facility] | [address] | [place], [place] | | | GLORIA GENAO OF CARE | [address] | [address] | | | TESTS | | | [...] [facility] | [address] | [place], [place] | | | [facility] | [address] | [address] | | | TESTS | | | [...] [facility] | [address] | [place], [place] | | | [facility] | [address] | [address] | | | TESTS | | | [...] [facility] | [address] | [place] [address] | | | SERVICES, CORE | [address] [...] | | | LABORATORY | | | ETHIOPIAN | | | SERVICES, | | | [...] the MDRD equation recommended by the | [facility] | | National Kidney [...] | + + + + + | [facility] | [address] | [place] [address] | | | SERVICES, CORE | V[place]MA [...] (H) | 70 - 99 mg/dL | [facility] - | | | [...] [facility] | [address] | [place], [place] | | | GLORIA GENAO OF [facility] | [facility] | [address] | | | TESTS | | | [...] | | | LABORATORY | | | ETHIOPIAN | | | SERVICES, | | | [...] | + + + + + | [facility] | [address] | [place] [address] | | | SERVICES, CORE | VILMA [...] P[facility] | [address] | [place], [place] | | | GLORIA GENAO OF [facility] | [address] | [address] | | | TESTS | | | [...] + + | [facility] DEPT OF | [address] | [place], [place] | | | CARDIOLOGY | [address] | [address] | | + + + + + [...] SELENA P[facility]T | [address] | [place], [place] | | | GLORIA GENAO OF [facility] | [address] | [address] | | | TESTS | | | [...] DEPT OF | [address] | [place], [place] | | | CARDIOLOGY | [address] | [address] | | + + + + + [...] | + + + + + | [facility] | [address] | [place] [address] | | | SERVICES, CORE | VILMA [...] + | [facility] - | [address] | [place] [address] | | | [place] | | | | + + + [...] and new reporting units as of | [facility] | | 09/30/2013. | LABORATORY | | | NATALEE WORTHINGTON | + + + + + + + + | Performing | Address | City/State/Zipcode | Phone Number | | Organization | | | | + + + + + | [facility] | [address] | [place] [address] | | | SERVICES, NATALEE | V[place]MA [...] [facility] | [address] | [place] [address] | | | SERVICES, CORE | PARK [...] [facility] | [address] | [place] [address] | | | NATALEE WORTHINGTON | [address] [...] [facility] | [address] | [place] [address] | | | SERVICES, CORE | [address] [...] | + + + + + | [facility] | [address] | [place] [address] | | | SERVICES, CORE | VILMA [...] [facility] | [address] | [place] [address] | | | SERVICES, CORE | [address] [...] [facility] | [address] | [place] [address] | | | SERVICES, CORE | PARK [...] [facility] | [address] | [place] [address] | | | SERVICES, CORE | PARK [...] | + + + + + | [facility] | [address] | [place] [address] | | | SERVICES, CORE | VILMA [...] [facility] | [address] | [place] [address] | | | SERVICES, CORE | PARK [...] | | | LABORATORY | | | ETHIOPIAN | | | SERVICES, | | | [...] the MDRD equation recommended by the | [facility] | | National Kidney [...] | + + + + + | [facility] | [address] | [place] [address] | | | NATALEE WORTHINGTON | V[place]MA [...] | | | correct patient, procedure, equipment, field support engineer and site/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 Catheter lot number: [id number] with a length of 55 | | [...] At | + + + | EXAM: MN CHEST 1 VIEW HISTORY: PICC placed-pt ready. [...] Interface - 10/24/2017 3:43 PM PDT EXAM: MN CHEST 1 | | VIEW HISTORY: PICC [...] [facility] | [address] | [place], [place] | | | GLORIA GENAO OF [facility] | [address] | [address] | | | TESTS | | | [...] | | Surgical Critical Care, PGY7 Pager: [phone] | | + + + CAPILLARY BLOOD [...] [facility] | [address] | [place], [place] | | | JOHN GENAO | [facility] | [address] | | | TESTS | | | [...] [facility] | [address] | [place], [place] | | | [facility] | [address] | [address] | | | TESTS | | | [...] | | | LABORATORY | | | ETHIOPIAN | | | SERVICES, | | | [...] | + + + + + | [facility] | [address] | [place] [address] | | | SERVICES, CORE | VILMA [...] | | | LABORATORY | | | ANTALEE WORTHINGTON | + + + + + + + + | Performing | Address | City/State/Zipcode | Phone Number | | Organization | | | | + + + + + | [facility] | [address] | [place] [address] | | | NATALEE WORTHINGTON | V[place]MA [...] [facility] | [address] | [place], [place] | | | [facility] | [address] | [address] | | | TESTS | | | [...] | + + + + + | [facility] | [address] | [place] [address] | | | SERVICES, CORE | VILMA [...] | | | LABORATORY | | | ETHIOPIAN | | | SERVICES, | | | [...] 11 | 4 - 11 mmol/L | [facility] | | | GAP(ALB [...] | + + + + + | [facility] | [address] | [place] [address] | | | SERVICES, CORE | VILMA [...] DEPT OF | [address] | [place], [place] | | | CARDIOLOGY | [address] | [address] | | + + + + + IR GASTROSTOMY TUBE EXCHANGE (10/22/2017 2:42 PM PDT) + + | Specimen | + + | | + + + + + | Narrative | Performed At | + + + | Procedure: Gastrostomy tube exchange Primary attending | [facility] | | named account executive: Shade Nix M.D. Preoperative diagnosis: | RADIOLOGY VOICE | | Malfunctioning Gastrostomy tube Postoperative diagnosis: Same | RECOGNITION | | Operations: Operation 1. Removal of existing Gastrostomy tube | | | over a guide wire Operation 2. Placement of 24 Armenian GABRIEL | | | gastrostomy over guide [...] a stiff glide wire the new 24 Armenian gastrostomy tube was | | | inserted. [...] Procedure: | | Gastrostomy tube exchangePrimary attending named account executive: Shade Nix, | | BrynPreoperative diagnosis: Malfunctioning Gastrostomy tubePostoperative diagnosis: | | SameOperations:Operation 1. Removal of existing Gastrostomy tube over a guide | | wireOperation 2. Placement of 24 Armenian GABRIEL gastrostomy over guide wireNo sedation was [...] glide wire the | | new 24 Armenian gastrostomy tube was inserted. The position of [...] stiff g lide wire the new 24 Armenian | |gastrostomy tube was inserted. The position [...] Note | + + | Service Account, [employer] Res In Interface - 10/22/2017 10:34 AM [...] GEET OF | [address] | [place], [place] | | | CARDIOLOGY | [address] | [address] | | + + + + + [...] | + + + + + | [facility] | [address] | [place] [address] | | | NATALEE WORTHINGTON | V[place]MA [...] | | | LABORATORY | | | ETHIOPIAN | | | SERVICES, | | | [...] | + + + + + | [facility] | [address] | [place] [address] | | | SERVICES, CORE | PARK [...] DEPT OF | [address] | [place], [place] | | | CARDIOLOGY | [address] | [address] | | + + + + + [...] | | | LABORATORY | | | ETHIOPIAN | | | SERVICES, | | | [...] | + + + + + | [facility] | [address] | [place] [address] | | | SERVICES, CORE | PARK [...] | + + + + + | [facility] | [address] | [place] [address] | | | SERVICES, NATALEE | [address] | | | + + + + + 12 LEAD ECG (10/19/2017 12:23 PM PDT) + + + + + + | Component | Value | Ref Range | Performed | Pathologist | | | | | At | Signature | + + + + + + | VENTRICULAR | 53 | bpm | [facility] DEPT | | | [...] DEPT OF | [address] | [place], [place] | | | CARDIOLOGY | [address] | [address] | | + + + + + [...] | + + + + + | [facility] | [address] [facility] | [place] [address] | | | SERVICES, CORE | [address] [...] | | | LABORATORY | | | ETHIOPIAN | | | SERVICES, | | | [...] | + + + + + | [facility] | [address] | [place] [address] | | | SERVICES, CORE | VILMA [...] + | [facility] DEPT OF | [address] [facility] | [place], [place] | | | CARDIOLOGY | [address] | [address] | | + + + + + [...] | | | LABORATORY | | | ETHIOPIAN | | | SERVICES, | | | [...] | + + + + + | [facility] | [address] | [place] [address] | | | SERVICES, CORE | VILMA [...] | + + + + + | [facility] | [address] | [place] [address] | | | SERVICES, CORE | PARK [...] DEPT OF | [address] | [place], [place] | | | CARDIOLOGY | [facility] | [address] | | + + + + + [...] | | | LABORATORY | | | ETHIOPIAN | | | SERVICES, | | | [...] [facility] | [address] | [place] [address] | | | SERVICES, CORE | PARK [...] + + | SELENA MCNAIR | [address] [facility] [address] [address] | [place] [address] | | | SERVICES, CORE | VILMA [...] Note | + + | Service Account, Klout In Interface - 10/15/2017 3:58 PM PDT [...] DEPT OF | [address] | [place], [place] | | | CARDIOLOGY | [address] | [address] | | + + + + + [...] [facility] | [address] | [place], [place] | | | GLORIA GENAO OF [facility] | [address] | [address] | | | TESTS | | | [...] [facility] | [address] | [place] [address] | | | NATALEE WORTHINGTON | VILMA [...] - [facility] | [address] | [place], [place] | | | [facility]ARE | [address] | [address] | | | TESTS | | | [...] + + | [facility] GEET OF | [address] | [place], [place] | | | CARDIOLOGY | [address] | [address] | | + + + + + [...] [facility] | [address] | [place] [address] | | | SERVICES, CORE | PARK [...] | | | LABORATORY | | | ETHIOPIAN | | | SERVICES, | | | [...] the MDRD equation recommended by the | [facility] | | National Kidney [...] | + + + + + | [facility] | [address] | [place] [address] | | | ELIN, NATALEE | [address] | | | [...] | | LABORATORY | | | NATALEE WORTHINTGON | + + + + + + + + | Performing | Address | City/State/Zipcode | Phone Number | | Organization | | | | + + + + + | [facility] | [address] | [place] [address] | | | NATALEE WORTHINGTON | PARK [...] [facility] | [address] | [place], [place] | | | GLORIA GENAO OF CARE | [facility] | [address] | | | TESTS | | | [...] [facility] | [address] | [place], [place] | | | GLORIA GENAO OF [facility] | [address] | [address] | | | TESTS | | | [...] | + + + + + | [facility] | [address] [facility] [address] [address] [facility] | [place] [address] | | | NATALEE WORTHINGTON | [address] [...] | | | LABORATORY | | | ETHIOPIAN | | | SERVICES, | | | [...] | + + + + + | [facility] | [address] | [place] [address] | | | SERVICES, CORE | [address] | | | + + + + + OPERATION RECORD (10/12/2017 8:50 PM PDT) + + | Procedure Note | + + | Pilar Cotto MD - 10/12/2017 8:50 PM PDT Date of Service: 10/12/2017 | | Attending Surgeon: Chaz Hernandez MD Production Cost Estimator(s): Randell Dixon M.D., | | fellow. George [...] saline. We then | | placed a 19-Armenian drain deep into the abscess cavity, tracking [...] 10/12/2017 19:50:06DT: 10/12/2017 20:50:54Job #: | | [id number] | + + X-RAY PORTABLE CHEST 1 VIEW (10/12/2017 7:50 PM PDT) + + | Specimen | + + | | + + + + + | Narrative | Performed At | + + + | EXAM: MN CHEST 1 VIEW HISTORY: Evaluate endotracheal tube [...] 10/13/2017 | | | 9:03 AM Preliminary: Grupreet Dunne MD Dictation initiated: | | | Gurpreet Dunne MD 10/13/2017 8:08 AM | | + + + + + | Procedure Note | + + | Service Account, Radiant Res In Interface - 10/13/2017 9:04 AM PDT EXAM: MN CHEST 1 | | VIEW HISTORY: Evaluate [...] + + + | [facility] | [address] | [place], [place] | | | [place] OF [facility] | [address] | [address] | | | TESTS | | | [...] | + + + + + | [facility] | [address] | [place] [address] | | | SERVICES, CORE | VILMA [...] | | | LABORATORY | | | ETHIOPIAN | | | SERVICES, | | | [...] [facility] | [address] | [place] [address] | | | SERVICES, CORE | PARK [...] [facility] | [address] | [place] [address] | | | SERVICES, CORE | VILMA [...] DEPT OF | [address] | [place], [place] | | | CARDIOLOGY | [address] | [address] | | + + + + + [...] OF | [address] | [place], [place] | | | CARDIOLOGY | [address] | [address] | | + + + + + [...] | + + + + + | [facility] | [address] | [place] [address] | | | SERVICES, CORE | VILMA [...] | + + + + + | [facility] | [address] | [place] [address] | | | SERVICES, CORE | PARK [...] | | | LABORATORY | | | ETHIOPIAN | | | SERVICES, | | | [...] | + + + + + | [facility] | [address] | [place] [address] | | | SERVICES, [facility] | [address] | | | + + + + + PROCEDURE NOTE (10/10/2017 10:00 PM PDT) + + + | Narrative | Performed At | + + + | Darius Link MD 10/12/2017 11:11 AM OPERATIVE REPORT | | | DATE OF OPERATION: 10/10/2017 ATTENDING SURGEON: 1. Dr. Hernandez | | | PORTFOLIO ARCHITECT: 1. Darius Link MD INDICATIONS: Dysphagia | | | and need for care home nutrition access PREOPERATIVE DIAGNOSIS: | | | 1.Dysphagia and need for care home nutrition access | | | POSTOPERATIVE [...] abdominal wall | | | and the Gabirel-oconnor button was advanced through this. The gastrotomy [...] | | | [place] [id number] Chief Resident | | | Neurosurgery | [...] | + + + + + | [facility] | [address] [facility] [address] | [place] [address] | | | SERVICES, CORE | [address] [...] | | | LABORATORY | | | ETHIOPIAN | | | SERVICES, | | | [...] + + | [facility] | [address] [facility] [address] | [place] [address] | | | SERVICES, CORE | PARK [...] | + + + + + | [facility] | [address] [facility] [address] [address] [facility] | [place] [address] | | | SERVICES, [facility] | [address] | | | + + + + + OPERATION RECORD (10/10/2017 12:40 PM PDT) + + | Procedure Note | + + | Magdiel Stock MD - 10/10/2017 12:40 PM PDT Date of Service: 10/10/2017 Attending | | Surgeon: Magdiel Stock MD Production Cost Estimator(s): Cecilia Jackson | | . Preoperative Diagnoses: [...] This is a 67-year-old male. Please see [facility] for full details. He | | [...] | the note for this encounter.Sonal Nunez [facility] [id number] [facility] | | [place] [id number] Orina, MDFABaljeet/MODLDD: | | 10/10/2017 11:52:15DT: 10/10/2017 12:40:41Job #: [id number] | | | | | |I was present for the critical portions of the procedure as described in the note for this encounter. | | | |Magdiel Stock MD | | | |Magdiel Stock MD | |[address] | |[address] [facility] | |[facility] | |[place] [address] | |[phone] | | | | | |Magdiel Stock MD | |FAH/MODL | | | | | | /[id number] | + + X-RAY ABDOMEN 1 VIEW [...] - | | | | | | [facility] | | + + + + [...] + | [facility] - | [address] | [place] [address] | | | [place] | | | [...] + | [facility] | [address] | [place] [address] | | | [place] | | | [...] - | | | | | | [facility] | | + + + + [...] Gram Stain: No squamous epithelial cells | [place] | | Many polymorphonuclear cells No organisms seen | | + + + + + + + + | Performing | Address | City/State/Zipcode | Phone Number | | Organization | | | | + + + + + | [facility] | [address] | [place] [address] | | | [facility] | | | | + + [...] detected | [facility] - | | | [place] | + + + + + + + + | Performing | Address | City/State/Zipcode | Phone Number | | Organization | | | | + + + + + | [facility] | [address] | [place] [address] | | | [place] | | | | + + + [...] + | [facility] | [address] | [place] [address] | | | [place] | | | | + + + [...] Gram Stain: No squamous epithelial cells | [place] | | Many polymorphonuclear cells No organisms seen | | + + + + + + + + | Performing | Address | City/State/Zipcode | Phone Number | | Organization | | | | + + + + + | [facility] | [address] | [place] [address] | | | [place] | | | | + + + [...] + | [facility] | [address] | [place] [address] | | | [place] | | | [...] + | [facility] | [address] | [place] [address] | | | [place] | | | [...] + | [facility] | [address] | [place] [address] | | | [place] | | | | + + + [...] + | [facility] | [address] | [place] [address] | | | [place] | | | [...] - | | | | | | [place] | | + + + + + [...] Gram Stain: No squamous epithelial cells | [facility] | | Moderate polymorphonuclear cells No organisms seen | | + + + + + + + + | Performing | Address | City/State/Zipcode | Phone Number | | Organization | | | | + + + + + | [facility] | [address] | [place] [address] | | | [facility] | | | | + + [...] detected | [facility] - | | | [place] | + + + + + + + + | Performing | Address | City/State/Zipcode | Phone Number | | Organization | | | | + + + + + | [facility] | [address] | [place] [address] | | | [facility] | | | | + + [...] + | [facility] | [address] | [place] [address] | | | [place] | | | | + + + [...] 1+ Pseudomonas aeruginosa Refer to culture | [facility] - | | collected 10/10/17 at 0903 for susceptibilities No anaerobic | [facility] - | | organisms isolated Gram Stain: No squamous epithelial cells | [place] | | Moderate polymorphonuclear cells No organisms seen | | + + + + + + + + | Performing | Address | City/State/Zipcode | Phone Number | | Organization | | | | + + + + + | [facility] - | [address] | [place] [address] | | | [place] | | | | + + + [...] detected | [facility] - | | | [place] | + + + + + + + + | Performing | Address | City/State/Zipcode | Phone Number | | Organization | | | | + + + + + | [facility] | [address] | [place] [address] | | | [place] | | | [...] + | [facility] | [address] | [place] [address] | | | [facility] | | | | + + [...] + | [facility] | [address] | [place] [address] | | | [place] | | | [...] + | [facility] | [address] | [place] [address] | | | [place] | | | [...] [facility] | [address] | [place] [address] | | | SERVICES, NATALEE | PARK [...] [facility] | [address] | [place] [address] | | | SERVICES, NATALEE | PARK [...] [facility] | [address] | [place] [address] | | | SERVICES, CORE | [address] [...] | | | LABORATORY | | | ETHIOPIAN | | | SERVICES, | | | [...] | + + + + + | [facility] | [address] [facility] [address] | [place] [address] | | | ELIN, CORE | V[address]MA [...] DEPT OF | [address] | [place], [place] | | | CARDIOLOGY | [address] | [address] | | + + + + + [...] + + + + | PRODUCT | [id number] | | [facility] | | | UNIT [...] + + + + | EXPIRATION | [id number] | | [facility] | | | DATE [...] + + + + | BLOOD | [id number] | | [facility] | | | PRODUCT [...] | + + + + + | [facility] | [address] | [place] [address] | | | SERVICES, | [address] [...] + + + + | PRODUCT | [id number] | | [facility] | | | UNIT [...] + + + + | EXPIRATION | [id number] | | [facility] | | | DATE [...] + + + + | BLOOD | [id number] | | [facility] | | | PRODUCT [...] [facility] | [address] | [place] [address] | | | SERVICES, | [address] [...] | + + + + + | [facility] | [address] | [place] [address] | | | SERVICES, | [address] [...] [facility] | [address] | [place] [address] | | | SERVICES, | [address] [...] [facility] | [address] | [place] [address] | | | SERVICES, | [address] [...] | + + + + + | [facility] | [address] | [place] [address] | | | SERVICES, CORE | [address] [...] + | [facility] | [address] [facility] | [place], [place] | | | CARDIOLOGY | [address] | [address] | | + + + + + [...] Note | + + | Service Account, [employer] Res In Interface - 10/08/2017 10:47 AM [...] MARQU[facility] | [address] | [place], [place] | | | GLORIA GENAO OF CARE | [address] | [address] | | | TESTS | | | [...] | + + + + + | [facility] | [address] | [place] [address] | | | SERVICES, CORE | PARK [...] [facility] | [address] | [place] [address] | | | NATALEE WORTHINGTON | [address] [...] | | | LABORATORY | | | ETHIOPIAN | | | SERVICES, | | | [...] | + + + + + | [facility] | [address] | [place] [address] | | | SERVICES, NATALEE | [address]IL[address] [...] RAPHAELAM | [address] | [place], [place] | | | GLORIA GENAO OF CARE | [facility] | [address] | | | TESTS | | | [...] (H) | 70 - 99 mg/dL | [facility] - | | | [...] PICKETT | [address] | [place], [place] | | | GLORIA GENAO OF CARE | [address] | [address] | | | TESTS | | | [...] PIYUSH | [address] [address] | [place], [place] | | | GLORIA GENAO OF GM | [facility] | [address] | | | TESTS | | | [...] RAPHAELAM | [address] | [place], [place] | | | GLORIA GENAO OF GM | [facility] | [address] | | | TESTS | | | [...] (H) | 70 - 99 mg/dL | [facility] - | | | [...] PICKETT | [address] | [place], [place] | | | GLORIA GENAO OF CARE | [address] | [address] | | | TESTS | | | [...] | + + + + + | [facility] | [address] | [place] [address] | | | NATALEE WORTHINGTON | VILMA [...] | + + + + + | [facility] | [address] | [place] [address] | | | NATALEE WORTHINGTON | VILMA [...] | | | LABORATORY | | | ETHIOPIAN | | | SERVICES, | | | [...] | + + + + + | [facility] | [address] | [place] [address] | | | SERVICES, CORE | VILMA [...] 99 | 70 - 99 mg/dL | [facility] - | | | [...] PICKETT | [address] | [place], [place] | | | [facility] POINT OF CARE | [address] | [address] | | | TESTS | | | [...] MARQUAM | [address] | [place], [place] | | | GLORIA GENAO [facility] | [facility] | [address] | | | TESTS | | | [...] DEPT OF | [address] | [place], [place] | | | CARDIOLOGY | [address] | [address] | | + + + + + [...] PICKETT | [address] | [place], [place] | | | [facility] POINT [facility] CARE | [address] | [address] | | | TESTS | | | [...] | + + + + + | [facility] | [address] | [place] [address] | | | NATALEE WORTHINGTON | VILMA [...] | + + + + + | [facility] | [address] | [place] [address] | | | NATALEE WORTHINGTON | VILMA [...] | | | LABORATORY | | | ETHIOPIAN | | | SERVICES, | | | [...] | + + + + + | [facility] | [address] | [place] [address] | | | SERVICES, CORE | PARK [...] PIYUSH | [address] | [place], [place] | | | GLORIA GENAO OF GM | [address] | [address] | | | TESTS | | | [...] PIYUSH | [address] | [place] | | | GLROIA GENAO OF CARE | [facility] | [address] | | | TESTS | | | [...] (H) | 70 - 99 mg/dL | [facility] - | | | [...] PICKETT | [address] | [place], [place] | | | GLORIA GENAO OF CARE | [facility] | [address] | | | TESTS | | | [...] PIYUSH | [address] | [place], [place] | | | GLORIA GENAO OF GM | [address] | [address] | | | TESTS | | | [...] + | [facility] DEPT [facility] | [address] | [place], [place] | | | CARDIOLOGY | [address] | [address] | | + + + + + [...] | + + + + + | [facility] | [address] | [place] [address] | | | SERVICES, NATALEE | VILMA [...] | + + + + + | [facility] | [address] | [place] [address] | | | SERVICES, CORE | VILMA [...] | | | LABORATORY | | | ETHIOPIAN | | | SERVICES, | | | [...] | + + + + + | [facility] | [address] | [place] [address] | | | SERVICES, CORE | VILMA [...] (H) | 70 - 99 mg/dL | [facility] - | | | [...] PICKETT | [address] | [place], [place] | | | GLORIA GENAO OF CARE | [address] | [address] | | | TESTS | | | [...] MARQUAM | [address] | [place], [place] | | | GLORIA GENAO OF CARE | [address] | [address] | | | TESTS | | | [...] - MARQUAM | [address] | [place], [place] | | | GLORIA GENAO OF CARE | [facility] | [address] | | | TESTS | | | [...] PICKETT | [address] | [place], [place] | | | [facility]ARE | [address] | [address] | | | TESTS | | | [...] MARQUAM | [address] | [place], [place] | | | GLORIA GENAO OF CARE | [address] | [address] | | | TESTS | | | [...] | + + + + + | [facility] | [address] | [place] [address] | | | SERVICES, CORE | PARK [...] [facility] | [address] | [place] [address] | | | SERVICES, CORE | VILMA [...] | | | LABORATORY | | | ETHIOPIAN | | | SERVICES, | | | [...] | + + + + + | [facility] | [address] | [place] [address] | | | NATALEE WORTHINGTON | VILMA [...] - PIYUSH | [address] | [place], [place] | | | GLORIA GENAO OF CARE | [facility] | [address] | | | TESTS | | | [...] (H) | 70 - 99 mg/dL | [facility] - | | | [...] PICKETT | [address] | [place], [place] | | | [facility] PO[facility]ARE | [address] | [address] | | | TESTS | | | [...] | + + + + + | [facility] | [address] | [place] [address] | | | SERVICES, CORE | VILMA [...] by | | | | | | [employer],[address] | | | | | | Rogelio Pickard, [facility],[place] | | | | | | [address] | | | | | | [phone]. | | | | | | Gui [...] [facility] | [address] | [place], [place] | | | [facility] | | [address] | | + + + + + [...] [facility] | [address] | [place] [address] | | | SERVICES, CORE | PARK [...] [facility] | [address] | [place] [address] | | | SERVICES, CORE | PARK [...] modified from | [facility] | | original music composition teacher's approved specifications. The performance | LABORATORY | | of the ELECTRICAL SIGN WIRER HELPER HIV Combo test, with or without confirmation, [...] | + + + + + | [facility] | [address] | [place] [address] | | | SERVICES, SPECIAL | PARK [...] PIYUSH | [address] | [place], [place] | | | GLORIA GENAO OF GM | [facility] | [address] | | | TESTS | | | [...] PIYUSH | [address] | [place] | | | GLORIA GENAO OF [facility] | [facility] | [address] | | | TESTS | | | [...] | + + + + + | [facility] | [address] | [place] [address] | | | SERVICES, CORE | PARK [...] [facility] | [address] | [place] [address] | | | SERVICES, CORE | PARK [...] | | | LABORATORY | | | ETHIOPIAN | | | SERVICES, | | | [...] the MDRD equation recommended by the | [facility] | | National Kidney Disease Education Program. [...] | + + + + + | [facility] | [address] | [place] [address] | | | NATALEE WORTHINGTON | VILMA [...] 96 | 70 - 99 mg/dL | [facility] - | | | [...] PICKETT | [address] | [place], [place] | | | GLORIA GENAO OF [facility] | [address] | [address] | | | TESTS | | | [...] MARQUAM | [address] | [place], [place] | | | HILL, POINT OF CARE | [address] | [address] | | | TESTS | | | [...] [facility]ET OF | [address] | [place], [place] | | | CARDIOLOGY | [address] | [address] | | + + + + + [...] At | + + + | EXAM: MN CHEST 1 VIEW HISTORY: Evaluate PICC placement [...] Note | + + | Service Account, 800razors Res In Interface - 10/02/2017 2:07 PM PDT EXAM: MN CHEST 1 | | VIEW HISTORY: Evaluate [...] [facility] | [address] | [place], [place] | | | [facility] POINT [facility] CARE | [address] | [address] | | | TESTS | | | | + + + + + X-RAY PORTABLE CHEST 1 VIEW (10/02/2017 8:56 AM PDT) + + | Specimen | + + | | + + + + + | Narrative | Performed At | + + + | EXAM: MN CHEST 1 VIEW HISTORY: new leukocytosis, eval [...] Interface - 10/02/2017 10:27 AM PDT EXAM: MN CHEST 1 | | VIEW HISTORY: new [...] + + + | [facility] | [address] | [place], [place] | | | GLORIA GENAO OF CARE | [address] | [address] | | | TESTS | | | [...] | + + + + + | [facility] | [address] | [place] [address] | | | NATALEE WORTHINGTON | VILMA [...] | + + + + + | [facility] | [address] | [place] [address] | | | NATALEE WORTHINGTON | VILMA [...] | | | LABORATORY | | | ETHIOPIAN | | | SERVICES, | | | [...] | + + + + + | [facility] | [address] | [place] [address] | | | SERVICES, CORE | VILMA [...] MARQUAM | [address] | [place], [place] | | | GLORIA GENAO OF GM | [address] | [address] | | | TESTS | | | [...] SELENA PICKETT | [address] | [place], [place] | | | CHADWICK MOROCCO OF [facility] | [address] | [address] | | | TESTS | | | [...] Note | + + | Service Account, RadiArktis Radiation Detectors Res In Interface - 10/01/2017 2:15 PM [...] MARQUAM | [address] | [place], [place] | | | GLORIA GENAO OF GM | [address] | [address] | | | TESTS | | | [...] Note | + + | Service Account, Klout In Interface - 10/01/2017 11:34 AM PDT [...] PICKETT | [address] | [place], [place] | | | GLORIA GENAO OF GM | [address] | [address] | | | TESTS | | | [...] [facility] | [address] | [place] [address] | | | NATALEE WORTHINGTON | VILMA [...] | Reference range change effective 12/11/16. | [facility] | | | LABORATORY | | | NATALEE WORTHINGTON | + + + + + + + + | Performing | Address | City/State/Zipcode | Phone Number | | Organization | | | | + + + + + | [facility] | [address] | [place] [address] | | | NATALEE WORTHINGTON | PARK [...] | | | LABORATORY | | | ETHIOPIAN | | | SERVICES, | | | [...] | + + + + + | [facility] | [address] | [place] [address] | | | SERVICES, CORE | VILMA [...] RAPHAELAM | [address] | [place] | | | [facility] CARE | [address] | [address] | | | TESTS | | | [...] RAPHAELAM | [address] | [place], [place] | | | GLORIA GENAO OF GM | [address] | [address] | | | TESTS | | | [...] DEPT OF | [address] | [place], [place] | | | CARDIOLOGY | [address] | [address] | | + + + + + [...] PICKETT | [address] | [place] | | | GLORIA GENAO OF GM | [facility] | [address] | | | TESTS | | | [...] RAPHAELAM | [address] | [place], [place] | | | [facility] CARE | [facility] | [address] | | | TESTS | | | [...] | + + + + + | [facility] | [address] | [place] [address] | | | SERVICES, CORE | VILMA [...] [facility] | [address] | [place] [address] | | | SERVICES, CORE | PARK [...] | | | LABORATORY | | | ETHIOPIAN | | | SERVICES, | | | [...] | + + + + + | [facility] | [address] | [place] [address] | | | NATALEE WORTHINGTON | VILMA [...] (H) | 70 - 99 mg/dL | [facility] - | | | [...] RAPHAELAM | [address] | [place] | | | GLORIA GENAO OF CARE | [address] | [address] | | | TESTS | | | [...] PICKETT | [address] | [place], [place] | | | GLORIA GENAO OF GM | [facility] | [address] | | | TESTS | | | [...] RAPHAELAM | [address] | [place], [place] | | | GLORIA GENAO OF [facility] | [facility] | [address] | | | TESTS | | | [...] DEPT OF | [address] | [place], [place] | | | CARDIOLOGY | [address] | [address] | | + + + + + [...] MARQUAM | [address] | [place], [place] | | | GLORIA GENAO OF CARE | [address] | [address] | | | TESTS | | | [...] | + + + + + | [facility] | [address] | [place] [address] | | | NATALEE WORTHINGTON | VILMA [...] | | | LABORATORY | | | ETHIOPIAN | | | SERVICES, | | | [...] | + + + + + | [facility] | [address] | [place] [address] | | | SERVICES, CORE | VILMA [...] | + + + + + | [facility] | [address] | [place] [address] | | | NATALEE WORTHINGTON | PARK [...] PIYUSH | [address] | [place] | | | GLORIA GENAO OF GM | [facility] | [address] | | | TESTS | | | [...] (H) | 70 - 99 mg/dL | [facility] - | | | [...] PICKETT | [address] | [place], [place] | | | [facility] POINT OF CARE | [address] | [address] | | | TESTS | | | [...] PIYUSH | [address] | [place], [place] | | | GLORIA GENAO OF GM | [address] | [address] | | | TESTS | | | [...] + | [facility] | [address] | [place], [place] | | | CARDIOLOGY | [address] | [address] | | + + + + + [...] PICKETT | [address] | [place], [place] | | | GLORIA GENAO OF GM | [address] | [address] | | | TESTS | | | [...] 09/05/2017 | LABORATORY | | | NATALEE WORTIHNGTON | + + + + + + + + | Performing | Address | City/State/Zipcode | Phone Number | | Organization | | | | + + + + + | [facility] | [address] | [place] [address] | | | NATALEE WORTHINGTON | VILMA [...] | + + + + + | [facility] | [address] | [place] [address] | | | NATALEE WORTHINGTON | PARK [...] | | | LABORATORY | | | ETHIOPIAN | | | SERVICES, | | | [...] | + + + + + | [facility] | [address] | [place] [address] | | | SERVICES, CORE | PARK [...] MARQUAM | [address] | [place], [place] | | | GLORIA GENAO OF CARE | [address] | [address] | | | TESTS | | | [...] - PIYUSH | [address] | [place], [place] | | | CHADIWCK MOROCCO OF [facility] | [address] | [address] | | | TESTS | | | [...] 09/27/2017 2:17 PM | | | Preliminary: uJlian Tinoco MD | | + + + + + | Procedure Note | + + | Service Account, RadiArktis Radiation Detectors Res In Interface - 09/27/2017 2:19 PM [...] poorly cleared with dry swallows. Please see [facility] pathology report for full details | | [...] MARQU[facility] | [address] | [place], [place] | | | GLORIA GENAO OF CARE | [address] | [address] | | | TESTS | | | [...] MARQUAM | [address] | [place], [place] | | | GLORIA GENAO OF CARE | [address] | [address] | | | TESTS | | | [...] | + + + + + | [facility] | [address] | [place] [address] | | | NATALEE WORTHINGTON | VILMA [...] | + + + + + | [facility] | [address] | [place] [address] | | | SERVICES, CORE | PARK [...] | | | LABORATORY | | | ETHIOPIAN | | | SERVICES, | | | [...] | + + + + + | [facility] | [address] | [place] [address] | | | SERVICES, CORE | VILMA [...] (H) | 70 - 99 mg/dL | [facility] - | | | [...] PICKETT | [address] | [place], [place] | | | GLORIA GENAO OF CARE | [address] | [address] | | | TESTS | | | [...] MARQUAM | [address] | [place], [place] | | | [facility] POINT [facility] CARE | [address] | [address] | | | TESTS | | | [...] DEPT OF | [address] | [place], [place] | | | CARDIOLOGY | [address] | [address] | | + + + + + [...] + + | Performing | Address | City/State[facility] | Phone Number | | Organization | | | | + + + + + | [facility] | [address] | [place], [place] | | | GLORIA GENAO OF GM | [facility] | [address] | | | TESTS | | | [...] RAPHAELAM | [address] | [place] | | | GLORIA GENAO OF GM | [facility] | [address] | | | TESTS | | | [...] (H) | 70 - 99 mg/dL | [facility] - | | | [...] PICKETT | [address] | [place], [place] | | | [facility] POINT OF CARE | [address] | [address] | | | TESTS | | | [...] | + + + + + | [facility] | [address] | [place] [address] | | | NATALEE WORTHINGTON | VILMA [...] | + + + + + | [facility] | [address] | [place] [address] | | | SERVICES, CORE | VILMA [...] | | | LABORATORY | | | ETHIOPIAN | | | SERVICES, | | | [...] | + + + + + | [facility] | [address] | [place] [address] | | | SERVICES, CORE | VILMA [...] (H) | 70 - 99 mg/dL | [facility] - | | | GLUCOSE, | | [...] PICKETT | [address] | [place], [place] | | | GLORIA GENAO OF GM | [facility] | [address] | | | TESTS | | | [...] [facility] | [address] | [place] [address] | | | NATALEE WORTHINGTON | PARK [...] | + + + + + | [facility] | [address] | [place] [address] | | | SERVICES, CORE | PARK [...] | | | LABORATORY | | | ETHIOPIAN | | | SERVICES, | | | [...] | + + + + + | [facility] | [address] | [place] [address] | | | SERVICES, CORE | VILMA [...] + + | [facility] | [address] | [place], [place] | | | CARDIOLOGY | [address] | [address] | | + + + + + [...] | + + | Service Account, Kostas First Warning Systems In Interface - 09/24/2017 4:09 PM PDT [...] | + + + + + | [facility] | [address] | [place] [address] | | | NATALEE WORTHINGTON | PARK [...] | | | LABORATORY | | | ETHIOPIAN | | | SERVICES, | | | [...] | + + + + + | [facility] | [address] | [place] [address] | | | SERVICES, CORE | PARK [...] [facility] | [address] | [place] [address] | | | NATALEE WORTHINGTON | VILMA [...] | + + + + + | [facility] | [address] | [place] [address] | | | SERVICES, CORE | PARK [...] [facility] | [address] | [place] [address] | | | SERVICES, CORE | PARK [...] | | | LABORATORY | | | ETHIOPIAN | | | SERVICES, | | | [...] | + + + + + | [facility] | [address] | [place] [address] | | | NATALEE WORTHINGTON | VILMA [...] [facility]USH | [address] | [place], [place] | | | [facility] POINT OF CARE | [address] | [address] | | | TESTS | | | [...] (H) | 70 - 99 mg/dL | [facility] - | | | [...] PICKETT | [address] | [place], [place] | | | CHADWICK POINT OF [facility] | [address] | [address] | | | TESTS | | | [...] Note | + + | Service Account, RadiArktis Radiation Detectors Res In Interface - 09/22/2017 4:25 PM [...] [facility] | [address] | [place] [address] | | | SERVICES, CORE | VILMA [...] OF | [address] | [place], [place] | | | CARDIOLOGY | [facility] | [address] | | + + + + + [...] | + + + + + | [facility] | [address] | [place] [address] | | | SERVICES, CORE | VILMA [...] + | [facility] | [address] | [place] [address] | | | SERVICES, CORE | PARK [...] | | | LABORATORY | | | ETHIOPIAN | | | SERVICES, | | | [...] | + + + + + | [facility] | [address] | [place] [address] | | | NATALEE WORTHINGTON | VILMA [...] (H) | 70 - 99 mg/dL | [facility] - | | | [...] PICKETT | [address] | [place], [place] | | | GLORIA GENAO OF [facility] | [address] | [address] | | | TESTS | | | [...] | + + + + + | [facility] | [address] | [place] [address] | | | SERVICES, CORE | PARK [...] [facility] | [address] | [place] [address] | | | SERVICES, NATALEE | VILMA [...] | | | LABORATORY | | | ETHIOPIAN | | | SERVICES, | | | [...] | + + + + + | [facility] | [address] | [place] [address] | | | SERVICES, CORE | VILMA [...] Note | + + | Service Account, 800razors Res In Interface - 09/20/2017 7:50 PM [...] Note | + + | Service Account, 800razors Res In Interface - 09/20/2017 6:25 PM [...] Note | + + | Service Account, RadiArktis Radiation Detectors Res In Interface - 09/20/2017 6:26 PM [...] Note | + + | Service Account, Klout In Interface - 09/20/2017 5:17 PM PDT [...] DEPT OF | [address] | [place], [place] | | | CARDIOLOGY | [address] | [address] | | + + + + + [...] | + + + + + | [facility] | [address] | [place] [address] | | | SERVICES, CORE | VILMA [...] | + + + + + | [facility] | [address] | [place] [address] | | | SERVICES, CORE | VILMA [...] | | | LABORATORY | | | ETHIOPIAN | | | SERVICES, | | | [...] the MDRD equation recommended by the | [facility] | | National Kidney [...] [facility] | [address] | [place] [address] | | | SERVICES, CORE | PARK [...] | + + + + + | [facility] | [address] | [place] [address] | | | SERVICES, CORE | PARK [...] [facility] | [address] | [place] [address] | | | SERVICES, CORE | VILMA [...] | | | LABORATORY | | | ETHIOPIAN | | | SERVICES, | | | [...] the MDRD equation recommended by the | [facility] | | National Kidney [...] [facility] | [address] | [place] [address] | | | SERVICES, CORE | PARK [...] | + + + + + | [facility] | [address] | [place] [address] | | | SERVICES, CORE | PARK [...] + + | [facility] | [address] | [place] [address] | | | SERVICES, CORE | PARK [...] | | | LABORATORY | | | ETHIOPIAN | | | SERVICES, | | | [...] the MDRD equation recommended by the | [facility] | | National Kidney [...] | + + + + + | [facility] | [address] | [place] [address] | | | [facility] | [address] | | | + [...] Note | + + | Service Account, 800razors Res In Interface - 09/17/2017 11:53 AM [...] | + + + + + | [facility] | [address] | [place] [address] | | | NATALEE WORTHINGTON | VILMA [...] | + + + + + | [facility] | [address] | [place] [address] | | | NATALEE WORTHINGTON | VILMA [...] | | | LABORATORY | | | ETHIOPIAN | | | SERVICES, | | | [...] | + + + + + | [facility] | [address] | [place] [address] | | | SERVICES, CORE | [address] | | | + + + + + X-RAY PORTABLE CHEST PICC LINE CHECK (09/16/2017 1:11 PM PDT) + + | Specimen | + + | | + + + + + | Narrative | Performed At | + + + | EXAM: MN CHEST PICC LINE CHECK HISTORY: PICC placement [...] Note | + + | Service Account, 800razors Res In Interface - 09/16/2017 1:34 PM PDT EXAM: MN CHEST | | PICC LINE CHECK HISTORY: [...] At | + + + | EXAM: MN CHEST PICC LINE CHECK HISTORY: Evaluate PICC [...] Note | + + | Service Account, Klout In Interface - 09/16/2017 11:41 AM PDT EXAM: MN CHEST | | PICC LINE CHECK HISTORY: [...] [facility] | [address] | [place] [address] | | | NATALEE WORTHINGTON | VILMA [...] | + + + + + | [facility] | [address] | [place] [address] | | | SERVICES, CORE | PARK [...] | | | LABORATORY | | | ETHIOPIAN | | | SERVICES, | | | [...] | + + + + + | [facility] | [address] | [place] [address] | | | SERVICES, CORE | [address] | | | + + + + + X-RAY PORTABLE CHEST 1 VIEW (09/15/2017 3:28 PM PDT) + + | Specimen | + + | | + + + + + | Narrative | Performed At | + + + | EXAM: MN CHEST 1 VIEW HISTORY: COMPARISON: None. | [...] Interface - 09/15/2017 6:45 PM PDT EXAM: MN CHEST 1 | | VIEW HISTORY: COMPARISON: [...] At | + + + | EXAM: MN CHEST PICC LINE CHECK HISTORY: PICC COMPARISON: [...] Interface - 09/15/2017 6:43 PM PDT EXAM: MN CHEST | | PICC LINE CHECK HISTORY: [...] Note Indications:TPN Procedure | | | location: Unit:[facility] Room: #12 Providers: Attending name: | [...] | pause verifies correct patient, procedure, equipment, field support engineer | | | and site/side marked as [...] | area Basilic vein. Catheter lot number: [id number] with a length of 55 | | [...] Note | + + | Service Account, RadiArktis Radiation Detectors Res In Interface - 09/15/2017 2:13 PM [...] [facility] | [address] | [place] [address] | | | NATALEE WORTHINGTON | VILMA [...] | + + + + + | [facility] | [address] | [place] [address] | | | SERVICES, CORE | VILMA [...] | | | LABORATORY | | | ETHIOPIAN | | | SERVICES, | | | [...] | + + + + + | [facility] | [address] | [place] [address] | | | SERVICES, CORE | VILMA [...] | + + + + + | [facility] | [address] | [place] [address] | | | SERVICES, NATALEE | VILMA [...] [facility] | [address] | [place] [address] | | | SERVICES, CORE | VILMA [...] | | | LABORATORY | | | ETHIOPIAN | | | SERVICES, | | | [...] | + + + + + | [facility] | [address] | [place] [address] | | | SERVICES, CORE | VILMA [...] | + + + + + | [facility] | [address] | [place] [address] | | | SERVICES, CORE | PARK [...] [facility] | [address] | [place] [address] | | | SERVICES, NATALEE | VILMA [...] | | | LABORATORY | | | ETHIOPIAN | | | SERVICES, | | | [...] | + + + + + | [facility] | [address] | [place] [address] | | | SERVICES, CORE | VILMA [...] | + + + + + | [facility] | [address] | [place] [address] | | | SERVICES, CORE | VILMA [...] [facility] | [address] | [place] [address] | | | SERVICES, CORE | PARK [...] (H) | 70 - 99 mg/dL | [facility] | | | PLASMA | [...] | | | LABORATORY | | | ETHIOPIAN | | | SERVICES, | | | [...] | + + + + + | [facility] | [address] | [place] [address] | | | SERVICES, CORE | VILMA [...] Note | + + | Service Account, 800razors Res In Interface - 09/11/2017 6:22 PM [...] | + + + + + | [facility] | [address] | [place] [address] | | | SERVICES, CORE | [address] | | | + + + + + MAGNESIUM, PLASMA (09/11/2017 7:12 AM PDT) + +---------+ + + + | Component | Value | Ref Range | Performed | Pathologist | | | | | At | Signature | + +---------+ + + + | MAGNESIUM,P | 2.7 (H) | 1.6 - 2.6 mg/dL | [facility] | | | LASMA | | | [...] [facility] | [address] | [place] [address] | | | SERVICES, CORE | VILMA [...] | | | LABORATORY | | | ETHIOPIAN | | | SERVICES, | | | [...] | + + + + + | [facility] | [address] | [place] [address] | | | SERVICES, CORE | VILMA [...] | + + + + + | [facility] | [address] | [place] [address] | | | SERVICES, CORE | VILMA [...] Note | + + | Service Account, RadiArktis Radiation Detectors Res In Interface - 09/10/2017 2:08 PM [...] | | + +---------+ + + | [facility] | | | | | [facility] | | | | + +---------+ + + X-RAY PORTABLE CHEST 1 VIEW (09/10/2017 7:16 AM PDT) + + | Specimen | + + | | + + + + + | Narrative | Performed At | + + + | STUDY: MN CHEST 1 VIEW 09/10/17 07:02:01 HISTORY: Possible [...] Interface - 09/10/2017 9:25 AM PDT STUDY: MN CHEST 1 | | VIEW 09/10/17 07:02:01 [...] [facility] | [address] | [place] [address] | | | SERVICES, CORE | PARK [...] [facility] | [address] | [place] [address] | | | SERVICES, CORE | PARK [...] | + + + + + | [facility] | [address] | [place] [address] | | | SERVICES, CORE | VILMA [...] | + + + + + | [facility] | [address] | [place] [address] | | | SERVICES, CORE | VILMA [...] | | | LABORATORY | | | ETHIOPIAN | | | SERVICES, | | | [...] the MDRD equation recommended by the | [facility] | | National Kidney [...] | + + + + + | [facility] | [address] | [place] [address] | | | SERVICES, CORE | VILMA [...] DEPT OF | [address] | [place], [place] | | | CARDIOLOGY | [address] | [address] | | + + + + + [...] [facility] | [address] | [place], [place] | | | GLORIA GENAO OF [facility] | [facility] | [address] | | | TESTS | | | [...] [facility] | [address] | [place] [address] | | | SERVICES, CORE | VILMA [...] | + + + + + | [facility] | [address] | [place] [address] | | | SERVICES, CORE | PARK [...] | | | LABORATORY | | | ETHIOPIAN | | | SERVICES, | | | [...] [facility] | [address] | [place] [address] | | | SERVICES, CORE | PARK [...] | + + + + + | [facility] | [address] | [place] [address] | | | SERVICES, CORE | VILMA [...] | | | LABORATORY | | | ETHIOPIAN | | | SERVICES, | | | [...] | + + + + + | [facility] | [address] | [place] [address] | | | SERVICES, CORE | PARK [...] | + + + + + | [facility] | [address] | [place] [address] | | | SERVICES, CORE | VILMA [...] [facility] | [address] | [place] [address] | | | SERVICES, CORE | VILMA [...] + + | [facility] | [address] | [place], [place] | | | CARDIOLOGY | [address] | [address] | | + + + + + X-RAY PORTABLE CHEST 1 VIEW (09/07/2017 6:12 AM PDT) + + | Specimen | + + | | + + + + + | Narrative | Performed At | + + + | EXAM: MN CHEST 1 VIEW HISTORY: Post extubation COMPARISON: [...] Interface - 09/07/2017 10:46 AM PDT EXAM: MN CHEST 1 | | VIEWHISTORY: Post extubationCOMPARISON: [...] [facility] | [address] | [place] [address] | | | NATALEE WORTHINGTON | VILMA [...] | | | LABORATORY | | | ETHIOPIAN | | | SERVICES, | | | [...] | + + + + + | [facility] | [address] | [place] [address] | | | SERVICES, NATALEE | VILMA [...] | + + + + + | [facility] | [address] | [place] [address] | | | SERVICES, CORE | VILMA [...] Note | + + | Service Account, RadiArktis Radiation Detectors Res In Interface - 09/07/2017 10:46 AM [...] + | [facility] | [address] | [place], [place] | | | CARDIOLOGY | [address] | [address] | | + + + + + [...] | | | attempt. Midline lot number [id number]; there was positive blood | | | [...] | | | LABORATORY | | | ETHIOPIAN | | | SERVICES, | | | [...] [facility] | [address] | [place] [address] | | | ELIN, NATALEE | PARK [...] | + + + + + | [facility] | [address] | [place] [address] | | | SERVICES, CORE | [address] | | | + + + + + X-RAY PORTABLE CHEST 1 VIEW (09/05/2017 5:33 AM PDT) + + | Specimen | + + | | + + + + + | Narrative | Performed At | + + + | EXAM: MN CHEST 1 VIEW HISTORY: Evaluation after chest [...] Interface - 09/05/2017 10:16 AM PDT EXAM: MN CHEST 1 | | VIEW HISTORY: Evaluation [...] | + + + + + | [facility] | [address] | [place] [address] | | | SERVICES, CORE | PARK [...] | + + + + + | [facility] | [address] | [place] [address] | | | ELIN, NATALEE | VIL[address] [...] | | | LABORATORY | | | ETHIOPIAN | | | SERVICES, | | | [...] | + + + + + | [facility] | [address] | [place] [address] | | | SERVICES, CORE | [address]ARK [...] | | | LABORATORY | | | ETHIOPIAN | | | SERVICES, | | | [...] the MDRD equation recommended by the | [facility] | | National Kidney [...] | + + + + + | [facility] | [address] | [place] [address] | | | [facility] | [address] | | | + [...] tomorrow morning. CB Henson Pager / ID: [phone] | | + + + CULTURE, SPUTUM [...] + | [facility] - | [address] | [place] [address] | | | [place] | | | [...] [facility] | [address] | [place] [address] | | | SERVICES, NATALEE | [address] | | | + + + + + UA, TIOT ONLY (09/04/2017 1:17 PM PDT) + + [...] | [facility] | | | GRAVITY | [place] performed by | | LABORATORY | | [...] [facility] | [address] | [place] [address] | | | SERVICES, NATALEE | PARK [...] | + + + + + | [facility] | [address] | [place] [address] | | | SERVICES, CORE | [address] | | | + + + + + CULTURE, BLOOD BACTI & YEAST [facility] (09/04/2017 1:16 PM PDT) [...] [facility] | [address] | [place] [address] | | | SERVICES, CORE | VILMA [...] DEPT OF | [address] | [place], [place] | | | CARDIOLOGY | [address] | [address] | | + + + + + X-RAY PORTABLE CHEST 1 VIEW (09/04/2017 7:04 AM PDT) + + | Specimen | + + | | + + + + + | Narrative | Performed At | + + + | EXAM: MN CHEST 1 VIEW HISTORY: Hypoxia. Intubated. | [...] Interface - 09/04/2017 9:49 AM PDT EXAM: MN CHEST 1 | | VIEW HISTORY: Hypoxia. [...] | + + + + + | [facility] | [address] | [place] [address] | | | SERVICES, NATALEE | VILMA [...] | + + + + + | [facility] | [address] | [place] [address] | | | SERVICES, CORE | VIL[address] [...] | | | LABORATORY | | | ETHIOPIAN | | | SERVICES, | | | [...] | + + + + + | [facility] | [address] | [place] [address] | | | SERVICES, CORE | [address] | | | + + + + + MAGNESIUM, PLASMA (09/04/2017 12:29 AM PDT) + +-------+ + + + | Component | Value | Ref Range | Performed | Pathologist | | | | | At | Signature | + +-------+ + + + | MAGNESIUM,P | 1.9 | 1.6 - 2.6 mg/dL | [facility] | | | [facility] | | | [...] | + + + + + | [facility] | [address] | [place] [address] | | | NATALEE WORTHINGTON | VILMA [...] (H) | 70 - 99 mg/dL | [facility] - | | | [...] [facility] | [address] | [place], [place] | | | GLORIA GENAO OF CARE | [address] | [address] | | | TESTS | | | [...] [facility] | [address] | [place], [place] | | | GLORIA GENAO OF CARE | [facility] | [address] | | | TESTS | | | [...] [facility] | [address] | [place], [place] | | | GLORIA GENAO OF CARE | [facility] | [address] | | | TESTS | | | [...] + + + | [facility] | [address] | [place], [place] | | | GLORIA GENAO OF [facility] | [address] | [address] | | | TESTS | | | [...] detected | AIRPORT - | | | [facility] | + + + + + + + + | Performing | Address | City/State/Zipcode | Phone Number | | Organization | | | | + + + + + | [facility] - | [address] | [place] [address] | | | [place] | | | [...] [facility] | [address] | [place] [address] | | | SERVICES, NATALEE | V[address]MA [...] Note | + + | Service Account, Klout In Interface - 09/03/2017 9:54 AM PDT [...] + | [facility] - | [address] | [place] [address] | | | [facility] | | | | + + [...] | + + + + + | [facility] | [address] | [place] [address] | | | SERVICES, CORE | PARK [...] | + + + + + | [facility] | [address] | [place] [address] | | | SERVICESNATALEE | [address] [...] | | | LABORATORY | | | ETHIOPIAN | | | SERVICES, | | | [...] | + + + + + | [facility] | [address] | [place] [address] | | | SERVICES, CORE | [address] [...] | + + + + + | [facility] | [address] | [place] [address] | | | SERVICES, NATALEE | [address] | | | + + + + + OPERATION RECORD (09/02/2017 6:53 PM PDT) + + | Procedure Note | + + | Fidelina Shields MD - 09/02/2017 6:53 PM PDT Date of Service: 09/02/2017 | | Attending Surgeon: Fidelina Shields MD Production Cost Estimator(s): | | Ajay Butts MD, resident. Preoperative [...] 09/02/2017 18:15:29DT: 09/02/2017 18:53:52Job #: | | [id number] to federal Medicare and Medicaid regulations I was present for | | the entire procedure.Fidelina Tenorio ProfessorDepartment of SurgeryOffice: | | [phone]: [id number] has been electronically signed by Fidelina Shields MD, | | 09/03/2017 at 9:11 AM. | | | | | |Fidelina Shields MD | |Software Applications Engineer | |Department of Surgery | |Office: [phone] | |Pager: [phone] | | | |This has been electronically [...] | + + + + + | [facility] | [address] | [place] [address] | | | SERVICES, CORE | V[address]MA [...] [facility] | [address] | [place] [address] | | | SERVICES, CORE | PARK [...] detected | AIRPORT - | | | [place] | + + + + + + + + | Performing | Address | City/State/Zipcode | Phone Number | | Organization | | | | + + + + + | [employer] [facility] - | [address] | [place] [address] | | | [facility] | | | | + + [...] [facility] | [address] | [place] [address] | | | SERVICES, CORE | PARK [...] | | | LABORATORY | | | ETHIOPIAN | | | SERVICES, | | | [...] | + + + + + | [facility] | [address] | [place] [address] | | | NATALEE WORTHINGTON | [address] [...] Note | + + | Service Account, Klout In Interface - 09/02/2017 4:25 PM PDT [...] | | contact: INGRID Butts, R4 Surgery [id number] Pursuant | | | to federal Medicare and Medicaid regulations I was present for the | | | entire procedure. Fidelina Shields MD Software Applications Engineer | | | Department of Surgery Office: [phone] Pager: [phone] This has | | | been electronically [...] [facility] | [address] | [place] [address] | | | SERVICES, CORE | VILMA [...] | + + + + + | [facility] | [address] | [place] [address] | | | SERVICES, CORE | [address] | | | + + + + + OPERATION RECORD (09/02/2017 6:51 AM PDT) + ---+ | Procedure Note | + ---+ | Fidelina Shields MD - 09/02/2017 6:51 AM PDT Date of Service: 09/01/2017 | | Attending Surgeon: Fidelina Shields MD Production Cost Estimator(s): Haim Peralta MD. | | Ajay Butts [...] 09/02/2017 06:17:53DT: 09/02/2017 | | 06:51:37Job #: [id number] to federal Medicare and Medicaid regulations I | | was present for the entire procedure.Fidelina Shields MDAssdioni ProfessorDepartment of | | SurgeryOffice: [phone]: [id number] has been electronically signed by Fidelina Whitman | | MD Cornelius, 09/02/2017 at 10:40 AM. | | | | | |Pursuant to federal Medicare and Medicaid regulations I was present for the entire procedur e. | | | | | | | |Fidelina Shields MD | |Software Applications Engineer | |Department of Surgery | |Office: [phone] | |Pager: [phone] | | | |This has been electronically [...] | + + + + + | [facility] | [address] | [place] [address] | | | SERVICES, CORE | [address] [...] [facility] | [address] | [place] [address] | | | SERVICES, CORE | [address]ARK [...] + + + + | PRODUCT | [id number] | | [facility] | | | UNIT [...] + + + + | EXPIRATION | [id number] | | [facility] | | | DATE [...] + + + + | BLOOD | [id number] | | [facility] | | | PRODUCT [...] [facility] | [address] | [place] [address] | | | SERVICES, | [address] [...] Note | + + | Service Account, [employer] Radiation Detectors Res In Interface - 09/02/2017 11:22 AM [...] | + + + + + | [facility] | [address] | [place] [address] | | | SERVICES, CORE | [address]ARK [...] | | | LABORATORY | | | ETHIOPIAN | | | SERVICES, | | | [...] | + + + + + | [facility] | [address] | [place] [address] | | | SERVICES, CORE | VILMA [...] | + + + + + | [facility] | [address] | [place] [address] | | | SERVICES, CORE | [address] [...] (http://www.cdc.gov/mmwr | | | | | | /preview/mmwrhtml/[email or web address] | | | | | | [email or web address].htm), [...] [facility] - | | | | by [employer], | | AIRPORT - | | | | | | [place] | | | | [facility] | | | | | | Rogelio Pickard [facility] | | | | | | [id number] | | | | | | | | | | | | www.[employer], [employer] | | | | | | [...] + | [facility] - | [address] | [place] [address] | | | [place] | | | | + + + [...] | + + + + + | [facility] | [address] | [place] [address] | | | SERVICES, CORE | [address] [...] [facility] | [address] | [place] [address] | | | SERVICES, CORE | [address]ARK [...] At | + + + | EXAM: MN CHEST 1 VIEW HISTORY: Hypoxemia COMPARISON: 09/01/17 [...] Interface - 09/02/2017 10:34 AM PDT EXAM: MN CHEST 1 | | VIEW HISTORY: HypoxemiaCOMPARISON: [...] [facility] | [address] | [place] [address] | | | SERVICES, CORE | [address]ARK [...] | + + + + + | [facility] | [address] | [place] [address] | | | SERVICES, CORE | [address] [...] + + + + | PRODUCT | [id number] | | [facility] | | | UNIT [...] + + + + | EXPIRATION | [id number] | | [facility] | | | DATE [...] + + + + | BLOOD | [id number] | | [facility] | | | PRODUCT [...] | + + + + + | [facility] | [address] | [place] [address] | | | SERVICES, | [address] [...] [facility] | [address] | [place] [address] | | | SERVICES, CORE | PARK [...] [facility] | [address] | [place] [address] | | | SERVICES, CORE | [address] [...] [facility] | [address] | [place] [address] | | | SERVICES, CORE | [address] [...] | | | LABORATORY | | | ETHIOPIAN | | | SERVICES, | | | [...] the MDRD equation recommended by the | [facility] | | National Kidney [...] | + + + + + | [facility] | [address] | [place] [address] | | | NATALEE WORTHINGTON | [address] [...] | + + + + + | [facility] | [address] | [place] [address] | | | NATALEE WORTHINGTON | PARK [...] [facility] | [address] | [place] [address] | | | ELIN, NATALEE | [address] [...] micropuncture access set was exchanged for a [employer] wire. Under | | | fluoroscopic guidance, a 5 Fr flush catheter was used to evaluate the | | | distal abdominal aorta and pelvic vasculature. A wire and catheter | | | were then used to select the left common and internal iliac arteries | | | from the right [employer] approach. DSA was performed from the [...] Note | + + | Service Account, [employer] Radiation Detectors Res In Interface - 09/01/2017 4:07 PM [...] micropuncture access set was exchanged for a [employer] wire. Under fluoroscopic guidance, | | a 5 Fr flush catheter was used to evaluate the distal abdominal aorta and pelvic | | vasculature. A wire and catheter were then used to select the left common and internal | | iliac arteries from the right [employer] approach. DSA was performed from the [...] micropuncture access set was exchanged for a [employer] wire. Under fluoroscopic guidance, a 5 Fr flush catheter was used | |to evaluate the distal abdominal aorta and pelvic vasculature. A wire and catheter were th en used to select the left common and internal iliac arteries from the right [employer] approach. DSA was performed from the [...] + | [facility] | [address] | [place], [place] | | | CHADWICK MOROCCO OF [facility] | [address] | [address] | | | TESTS | | | | + + + + + EXPLORATORY LAPAROTOMY (09/01/2017 12:31 PM PDT) + + + | Narrative | Performed At | + + + | Fidelina Shields MD 09/01/2017 12:42 PM BRIEF OPERATIVE NOTE: | | | Date: 09/01/2017 Author: Fidelina Shields MD | | | Attending Physician: Fidelina Shields MD Production Cost Estimator(s): Haim Peralta | | | , Vicente [...] case. | | | Fidelina Shields MD Software Applications Engineer Division of Trauma, | | | Critical Care and Acute Care Surgery Office: [phone] Pager: | | | [phone] | | + + + ABG-FULL ABL, [...] - [facility] | [address] | [place], [place] | | | GLORIA GENAO OF [facility] | [address] | [address] | | | TESTS | | | [...] + + | [facility] | [address] | [place] [address] | | | NATALEE WORTHINGTON | [address] [...] - [facility] | [address] | [place], [place] | | | CHADWICK POINT OF CARE | [address] | [address] | | | TESTS | | | [...] + + + + | PRODUCT | [id number] | | [facility] | | | UNIT [...] + + + + | EXPIRATION | [id number] | | [facility] | | | DATE [...] + + + + | BLOOD | [id number] | | [facility] | | | PRODUCT [...] | + + + + + | [facility] | [address] | [place] [address] | | | SERVICES, | [address] [...] + + + + | PRODUCT | [id number] | | [facility] | | | UNIT [...] + + + + | EXPIRATION | [id number] | | [facility] | | | DATE [...] + + + + | BLOOD | [id number] | | [facility] | | | PRODUCT [...] | + + + + + | [facility] | [address] | [place] [address] | | | SERVICES, | [address] [...] + + + + | PRODUCT | [id number] | | [facility] | | | UNIT [...] + + + + | EXPIRATION | [id number] | | [facility] | | | DATE [...] + + + + | BLOOD | [id number] | | [facility] | | | PRODUCT [...] | + + + + + | [facility] | [address] | [place] [address] | | | SERVICES, | [address] [...] + + + + | PRODUCT | [id number] | | [facility] | | | UNIT [...] + + + + | EXPIRATION | [id number] | | [facility] | | | DATE [...] + + + + | BLOOD | [id number] | | [facility] | | | PRODUCT [...] [facility] | [address] | [place] [address] | | | SERVICES, | [address] [...] + + + + | PRODUCT | [id number] | | [facility] | | | UNIT [...] + + + + | EXPIRATION | [id number] | | [facility] | | | DATE [...] + + + + | BLOOD | [id number] | | [facility] | | | PRODUCT [...] [facility] | [address] | [place] [address] | | | SERVICES, | [address] [...] + + + + | PRODUCT | [id number] | | [facility] | | | UNIT [...] + + + + | EXPIRATION | [id number] | | [facility] | | | DATE [...] + + + + | BLOOD | [id number] | | [facility] | | | PRODUCT [...] [facility] | [address] | [place] [address] | | | SERVICES, | [address] [...] + + + + | PRODUCT | [id number] | | [facility] | | | UNIT [...] + + + + | EXPIRATION | [id number] | | [facility] | | | DATE [...] + + + + | BLOOD | [id number] | | [facility] | | | PRODUCT [...] [facility] | [address] | [place] [address] | | | SERVICES, | [address] [...] + + + + | PRODUCT | [id number] | | [facility] | | | UNIT [...] + + + + | EXPIRATION | [id number] | | [facility] | | | DATE [...] + + + + | BLOOD | [id number] | | [facility] | | | PRODUCT [...] [facility] | [address] | [place] [address] | | | SERVICES, | [address] [...] + + + + | PRODUCT | [id number] | | [facility] | | | UNIT [...] + + + + | EXPIRATION | [id number] | | [facility] | | | DATE [...] + + + + | BLOOD | [id number] | | [facility] | | | PRODUCT [...] [facility] | [address] | [place] [address] | | | SERVICES, | [address] [...] + + + + | PRODUCT | [id number] | | [facility] | | | UNIT [...] + + + + | EXPIRATION | [id number] | | [facility] | | | DATE [...] + + + + | BLOOD | [id number] | | [facility] | | | PRODUCT [...] | + + + + + | [facility] | [address] | [place] [address] | | | SERVICES, | [address] [...] + + + + | PRODUCT | [id number] | | [facility] | | | UNIT [...] + + + + | EXPIRATION | [id number] | | [facility] | | | DATE [...] + + + + | BLOOD | [id number] | | [facility] | | | PRODUCT [...] | + + + + + | [employer] | [address] | [place] [address] | | | SERVICES, | [address] [...] + + + + | PRODUCT | [id number] | | [facility] | | | UNIT [...] + + + + | EXPIRATION | [id number] | | [facility] | | | DATE [...] + + + + | BLOOD | [id number] | | [facility] | | | PRODUCT [...] | + + + + + | [facility] | [address] | [place] [address] | | | SERVICES, | [address] [...] + + + + | PRODUCT | [id number] | | [facility] | | | UNIT [...] + + + + | EXPIRATION | [id number] | | [facility] | | | DATE [...] + + + + | BLOOD | [id number] | | [facility] | | | PRODUCT [...] | + + + + + | [facility] | [address] | [place] [address] | | | SERVICES, | [address] [...] + + + + | PRODUCT | [id number] | | [facility] | | | UNIT [...] + + + + | EXPIRATION | [id number] | | [facility] | | | DATE [...] + + + + | BLOOD | [id number] | | [facility] | | | PRODUCT [...] [facility] | [address] | [place] [address] | | | SERVICES, | [address] [...] + + + + | PRODUCT | [id number] | | [facility] | | | UNIT [...] + + + + | EXPIRATION | [id number] | | [facility] | | | DATE [...] + + + + | BLOOD | [id number] | | [facility] | | | PRODUCT [...] [facility] | [address] | [place] [address] | | | SERVICES, | [address] [...] + + + + | PRODUCT | [id number] | | [facility] | | | UNIT [...] + + + + | EXPIRATION | [id number] | | [facility] | | | DATE [...] + + + + | BLOOD | [id number] | | [facility] | | | PRODUCT [...] [facility] | [address] | [place] [address] | | | SERVICES, | [address] [...] + + + + | PRODUCT | [id number] | | [facility] | | | UNIT [...] + + + + | EXPIRATION | [id number] | | [facility] | | | DATE [...] + + + + | BLOOD | [id number] | | [facility] | | | PRODUCT [...] [facility] | [address] | [place] [address] | | | SERVICES, | [address] [...] + + + + | PRODUCT | [id number] | | [facility] | | | UNIT [...] + + + + | EXPIRATION | [id number] | | [facility] | | | DATE [...] + + + + | BLOOD | [id number] | | [facility] | | | PRODUCT [...] [facility] | [address] | [place] [address] | | | SERVICES, | [address] [...] + + + + | PRODUCT | [id number] | | [facility] | | | UNIT [...] + + + + | EXPIRATION | [id number] | | [facility] | | | DATE [...] + + + + | BLOOD | [id number] | | [facility] | | | PRODUCT [...] [facility] | [address] | [place] [address] | | | SERVICES, | [address] [...] + + + + | PRODUCT | [id number] | | [facility] | | | UNIT [...] + + + + | EXPIRATION | [id number] | | [facility] | | | DATE [...] + + + + | BLOOD | [id number] | | [facility] | | | PRODUCT [...] + | [facility] | [address] | [place] [address] | | | SERVICES, | [address] [...] + + + + | PRODUCT | [id number] | | [facility] | | | UNIT [...] + + + + | EXPIRATION | [id number] | | [facility] | | | DATE [...] + + + + | BLOOD | [id number] | | [facility] | | | PRODUCT [...] | + + + + + | [facility] | [address] | [place] [address] | | | SERVICES, | [address] [...] + + + + | PRODUCT | [id number] | | [facility] | | | UNIT [...] + + + + | EXPIRATION | [id number] | | [facility] | | | DATE [...] + + + + | BLOOD | [id number] | | [facility] | | | PRODUCT [...] | + + + + + | [facility] | [address] | [place] [address] | | | SERVICES, | [address] [...] + + + + | PRODUCT | [id number] | | [facility] | | | UNIT [...] + + + + | EXPIRATION | [id number] | | [facility] | | | DATE [...] + + + + | BLOOD | [id number] | | [facility] | | | PRODUCT [...] | + + + + + | [facility] | [address] | [place] [address] | | | SERVICES, | [address] [...] + + + + | PRODUCT | [id number] | | [facility] | | | UNIT [...] + + + + | EXPIRATION | [id number] | | [facility] | | | DATE [...] + + + + | BLOOD | [id number] | | [facility] | | | PRODUCT [...] | + + + + + | [facility] | [address] | [place] [address] | | | SERVICES, | [address] [...] + + + + | PRODUCT | [id number] | | [facility] | | | UNIT [...] + + + + | EXPIRATION | [id number] | | [facility] | | | DATE [...] + + + + | BLOOD | [id number] | | [facility] | | | PRODUCT [...] [facility] | [address] | [place] [address] | | | SERVICES, | [address] [...] + + + + | PRODUCT | [id number] | | [facility] | | | UNIT [...] + + + + | EXPIRATION | [id number] | | [facility] | | | DATE [...] + + + + | BLOOD | [id number] | | [facility] | | | PRODUCT [...] [facility] | [address] | [place] [address] | | | SERVICES, | [address] [...] | + + + + + | [facility] | [address] | [place] [address] | | | SERVICES, CORE | [address] [...] | | | LABORATORY | | | ETHIOPIAN | | | SERVICES, | | | [...] | + + + + + | [facility] | [address] | [place] [address] | | | SERVICES, CORE | [address] [...] | + + + + + | [facility] | [address] | [place] [address] | | | SERVICES, CORE | [address] [...] - [facility] | [address] | [place], [place] | | | [facility] | [address] | [address] | | | TESTS | | | | + + + + + X-RAY PORTABLE CHEST 1 VIEW (09/01/2017 9:18 AM PDT) + + | Specimen | + + | | + + + + + | Narrative | Performed At | + + + | EXAM: MN CHEST 1 VIEW HISTORY: Intubated COMPARISON: 08/31/17 [...] Interface - 09/02/2017 1:23 PM PDT EXAM: MN CHEST 1 | | VIEW HISTORY: IntubatedCOMPARISON: [...] Note | + + | Service Account, Klout In Interface - 09/01/2017 1:40 PM PDT [...] + + + + | PRODUCT | [id number] | | [facility] | | | UNIT [...] + + + + | EXPIRATION | [id number] | | [facility] | | | DATE [...] + + + + | BLOOD | [id number] | | [facility] | | | PRODUCT [...] [facility] | [address] | [place] [address] | | | SERVICES, | [address] [...] + + + + | PRODUCT | [id number] | | [facility] | | | UNIT [...] + + + + | EXPIRATION | [id number] | | [facility] | | | DATE [...] + + + + | BLOOD | [id number] | | [facility] | | | PRODUCT [...] [facility] | [address] | [place] [address] | | | SERVICES, | [address] [...] + + + + | PRODUCT | [id number] | | [facility] | | | UNIT [...] + + + + | EXPIRATION | [id number] | | [facility] | | | DATE [...] + + + + | BLOOD | [id number] | | [facility] | | | PRODUCT [...] [facility] | [address] | [place] [address] | | | SERVICES, | [address] [...] + + + + | PRODUCT | [id number] | | [facility] | | | UNIT [...] + + + + | EXPIRATION | [id number] | | [facility] | | | DATE [...] + + + + | BLOOD | [id number] | | [facility] | | | PRODUCT [...] [facility] | [address] | [place] [address] | | | SERVICES, | [address] [...] + + + + | PRODUCT | [id number] | | [facility] | | | UNIT [...] + + + + | EXPIRATION | [id number] | | [facility] | | | DATE [...] + + + + | BLOOD | [id number] | | [facility] | | | PRODUCT [...] [facility] | [address] | [place] [address] | | | SERVICES, | [address] [...] + + + + | PRODUCT | [id number] | | [facility] | | | UNIT [...] + + + + | EXPIRATION | [id number] | | [facility] | | | DATE [...] + + + + | BLOOD | [id number] | | [facility] | | | PRODUCT [...] [facility] | [address] | [place] [address] | | | SERVICES, | [address] [...] + + + + | PRODUCT | [id number] | | [facility] | | | UNIT [...] + + + + | EXPIRATION | [id number] | | [facility] | | | DATE [...] + + + + | BLOOD | [id number] | | [facility] | | | PRODUCT [...] LABORAT[facility] | [address] | [place] [address] | | | SERVICES, | [address] [...] + + + + | PRODUCT | [id number] | | [facility] | | | UNIT [...] + + + + | EXPIRATION | [id number] | | [facility] | | | DATE [...] + + + + | BLOOD | [id number] | | [facility] | | | PRODUCT [...] | + + + + + | [facility] | [address] | [place] [address] | | | SERVICES, | [address] [...] + + + + | PRODUCT | [id number] | | [facility] | | | UNIT [...] + + + + | EXPIRATION | [id number] | | [facility] | | | DATE [...] + + + + | BLOOD | [id number] | | [facility] | | | PRODUCT [...] + + | [facility] | [address] | [place] [address] | | | SERVICES, | [address] [...] | + + + + + | [facility] | [address] | [place] [address] | | | NATALEE [place] | [address] [...] | + + + + + | [facility] | [address] | [place] [address] | | | SERVICES, CORE | [address] [...] with | | | trauma ICU programming internship by Dr. Yang at 4:38 AM. [...] ligament is injured.Discussed with trauma ICU programming internship | | by Dr. Yang at 4:38 AM.I have personally reviewed the images and, if necessary, | | edited the report. I agree with the report as now presented. | |3. Extensive soft tissue edema extending into the cervical and upper thoracic interspinous space, suggestive of interspinous ligament is injured. | | | |Discussed with trauma ICU programming internship by Dr. Yang at 4:38 AM. [...] | | | LABORATORY | | | ETHIOPIAN | | | SERVICES, | | | [...] | + + + + + | [employer] [facility] [facility] | [address] | [place] [address] | | | SERVICES, CORE | [address] [...] [facility] | [address] | [place] [address] | | | SERVICES, CORE | [address] [...] [facility] | [address] | [place] [address] | | | SERVICES, CORE | [address] [...] | + + + + + | [facility] | [address] | [place] [address] | | | SERVICES, NATALEE | [address] [...] pleural spaced was performed. A 32 size Armenian chest tube was | | | placed [...] ventricles. Discussed with the trauma ICU programming internship at 12:12 AM by | | [...] with | | the trauma ICU programming internship at 12:[address] Yang.I [...] | |Discussed with the trauma ICU programming internship at 12:[address] Yang. [...] + + | Performing | Address | City/State[facility] | Phone Number | | Organization | | | | + + + + + | [facility] | [address] | [place], [place] | | | [facility] [place] [facility] | [address] | [address] | | | TESTS | | | [...] [facility] | [address] | [place] [address] | | | SERVICES, CORE | [address] [...] | + + + + + | [facility] | [address] | [place] [address] | | | SERVICES, CORE | [address] [...] | | + +---------+ + + | [facility] | | | [...] + + | Performing | Address | City/State[facility] | Phone Number | | [...] | + + + + + | [facility] | [address] | [place] [address] | | | [facility] | [address] | | | + + + + + X-RAY PORTABLE CHEST 1 VIEW (08/31/2017 7:07 PM PDT) + + | Specimen | + + | | + + + + + | Narrative | Performed At | + + + | STUDY: MN CHEST 1 VIEW HISTORY: Trauma COMPARISON: CT CAP | [facility] | | 08/31/2017 FINDINGS: Endotracheal tube with [...] Interface - 09/01/2017 1:44 PM PDT STUDY: MN CHEST 1 | | VIEWHISTORY: TraumaCOMPARISON: CT [...] | + + + + + | [facility] | [address] | [place] [address] | | | SERVICES, CORE | PARK [...] Note | + + | Service Account, Klout In Interface - 08/31/2017 8:22 PM PDT [...] Note | + + | Service Account, 800razors Res In Interface - 09/01/2017 10:12 AM [...] rib, nondisplaced-Left | | 1st rib fracture, ypxxpugrnojj-Tww-pcnldkriz left lateral 8th rib fracture-T12 fracture | [...] + + | [facility] | [address] | [place] [address] | | | SERVICES, | [address] [...] [facility] | [address] | [place] [address] | | | SERVICES, | [address] [...] [facility] | [address] | [place] [address] | | | SERVICES, | [address] [...] [facility] | [address] | [place], [place] | | | [facility] | [address] | [address] | | | TESTS | | | [...] + + + | [facility] | [address] | [place], [place] | | | [facility] | [facility] | [address] | | | TESTS | | | [...] [facility] | [address] | [place], [place] | | | [facility] | [address] | [address] | | | TESTS | | | [...] [facility] | [address] | [place], [place] | | | [facility] | [address] | [address] | | | TESTS | | | [...] + + + + | PRODUCT | [id number] | | [facility] | | | UNIT [...] + + + + | EXPIRATION | [id number] | | [facility] | | | DATE [...] + + + + | BLOOD | [id number] | | [facility] | | | PRODUCT [...] [facility] | [address] | [place] [address] | | | SERVICES, | [address] [...] + + + + | PRODUCT | [id number] | | [facility] | | | UNIT [...] + + + + | EXPIRATION | [id number] | | [facility] | | | DATE [...] + + + + | BLOOD | [id number] | | [facility] | | | PRODUCT [...] | + + + + + | [facility] | [address] | [place] [address] | | | SERVICES, | [address] [...] + + + + | PRODUCT | [id number] | | [facility] | | | UNIT [...] + + + + | EXPIRATION | [id number] | | [facility] | | | DATE [...] + + + + | BLOOD | [id number] | | [facility] | | | PRODUCT [...] | + + + + + | [facility] | [address] | [place] [address] | | | SERVICES, | [address] [...] + + + + | PRODUCT | [id number] | | [facility] | | | UNIT [...] + + + + | EXPIRATION | [id number] | | [facility] | | | DATE [...] + + + + | BLOOD | [id number] | | [facility] | | | PRODUCT [...] | + + + + + | [facility] | [address] | [place] [address] | | | SERVICES, | [address] [...] + + + + | PRODUCT | [id number] | | [facility] | | | UNIT [...] + + + + | EXPIRATION | [id number] | | [facility] | | | DATE [...] + + + + | BLOOD | [id number] | | [facility] | | | PRODUCT [...] | + + + + + | [facility] | [address] | [place] [address] | | | SERVICES, | [address] [...] + + + + | PRODUCT | [id number] | | [facility] | | | UNIT [...] + + + + | EXPIRATION | [id number] | | [facility] | | | DATE [...] + + + + | BLOOD | [id number] | | [facility] | | | PRODUCT [...] | + + + + + | [facility] | [address] | [place] [address] | | | SERVICES, | [address] [...] + + + + | PRODUCT | [id number] | | [facility] | | | UNIT [...] + + + + | EXPIRATION | [id number] | | [facility] | | | DATE [...] + + + + | BLOOD | [id number] | | [facility] | | | PRODUCT [...] [facility] | [address] | [place] [address] | | | SERVICES, | [address] [...] + + + + | PRODUCT | [id number] | | [facility] | | | UNIT [...] + + + + | EXPIRATION | [id number] | | [facility] | | | DATE [...] + + + + | BLOOD | [id number] | | [facility] | | | PRODUCT [...] [facility] | [address] | [place] [address] | | | SERVICES, | [address] [...] | + + + + + | [facility] | [address] | [place] [address] | | | SERVICES, CORE | PARK [...] | | | LABORATORY | | | ETHIOPIAN | | | SERVICES, | | | [...] | + + + + + | [facility] | [address] | [place] [address] | | | SERVICES, CORE | [address] [...] | + + + + + | [facility] | [address] | [place] [address] | | | SERVICES, CORE | [address] | | | + + + + + ETHANOL (ALCOHOL), BLOOD (08/31/2017 4:50 PM PDT) + +--------+ + + + | Component | Value | Ref Range | Performed | Pathologist | | | | | At | Signature | + +--------+ + + + | ETHANOL | 41 (H) | <10 mg/dL | [facility] | | | (ALCOHOL) | | | [...] [facility] | [address] | [place] [address] | | | SERVICES, CORE | [address] [...] | + + + + + | [facility] | [address] | [place] [address] | | | SERVICES, CORE | [address] [...] | + + + + + | [facility] | [address] | [place] [address] | | | SERVICES, CORE | [address] [...]
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
--- OUTSIDE RECORDS SUMMARY | ~2019-12-25 | XMS | Clinical Summary ---
Demographics + + + | Address | [address] | | | [place] [address] | + + + | Home Phone | | + + + | Preferred Language | Unknown | + + + | Marital Status | Single | + + + | Anglican Affiliation | Unknown | + + + | Race | or | + + + | Ethnic Group | Not or | + + + Author + + + | Author | [facility] | | | and [place] | + + + | Organization | [facility] | | | and [...] Team Providers + +------+ + | Care Comparison Shopper Name | Role | Phone | + +------+ + | [facility] | PCP | | [...] +---------+--------+ | MEDICAID [facility] | MEDICA | [id number] | | [phone] | | Medica | [...] Person | Self | [birth year] | [address] | | | al/Tuan | | 1961 | [phone] | [place] [address] | | | taras | | | 1 (Home) | | + +--------+ +--------+ + + Advance Directives + + + + + | Type | Date Recorded | Patient | Explanation | | | | Cota | | + + + + + | Power of | | | | | Trouble Shooting Mechanic | | | | + + + [...]
--- OUTSIDE RECORDS SUMMARY | ~2019-12-25 | XMS | Encounter Summary ---
Demographics + + + | Address | [address] | | | [place] [address] | + + + | Home Phone [...] + + | Author | [facility] [employer] [facility] | + + + | Organization | [facility] [employer] [facility] | + + [...] Providers + +------+ + | Care Siding Installer Name | Role | Phone | [...] 2017 | Pass | Services at [facility] | | | | | | [address] | | | | | | [place] | | | | | | [facility], [address] [place] [address] | | | | | | [place], [place] | | | | | | [address] | | | | | | [phone] | | | +--------+ + + + [...]
--- OUTSIDE RECORDS SUMMARY | ~2019-12-25 | XMS | Encounter Summary ---
Demographics + + + | Address | [address] | | | [place] [address] | + + + | Home Phone [...] Author | [facility] [employer] [facility] | + + + | Organization | [facility] [employer] [facility] | + + + | Address | Unknown | + + + | Phone | Unavailable | + + + Support + + +---------+ + | Name | Relationship | Address | Phone | + + +---------+ + | Kaylie Baig | ECON | Unknown | | + + +---------+ + Care Team Providers + +------+ + | Care Head Gauge Unit Operator Name | Role | Phone | [...] | | | | | | Rd [facility] | | | | | | Hospital Admitting | | | | | | Desk Located on the | | | | | | 9th floor | | | | | | [place], [place] | | | | | | [address] | | | +--------+ + + + [...]
--- OUTSIDE RECORDS SUMMARY | ~2019-12-25 | XMS | Encounter Summary ---
Demographics + + + | Address | [address] | | | [place] [address] | + + + | Home Phone [...] | Author | [facility] [employer] [facility] | + + + | Organization | [facility] [employer] [facility] | + [...] Team Providers + +------+ + | Care Camp Program Director Name | Role | Phone | [...] + + + + | 09/15/ | Wirer Maintenance | Neurosurgery at | Dallin Bourgeois, | Other closed | | 2018 | | [facility] [address] | MD [address] | nondisplaced | | | | [facility] for | [address] | fracture of seventh | | | | Health and Healing, | [place], [place] | cervical vertebra | | | | Building , 8th | [address] | with routine | | | | floor [place], [place] | [phone] | healing, subsequent | | | | [address] | | encounter (Primary | | | | [phone] | | Dx) | +--------+ + + [...]
--- OUTSIDE RECORDS SUMMARY | ~2019-12-25 | XMS | Encounter Summary ---
Demographics + + + | Address | [address] | | | [place] [address] | + + + | Home Phone [...] Author | [facility] [employer] [facility] | + + + | Organization | [facility] [employer] [facility] [...] Team Providers + +------+ + | Care Dehairing Machine Tender Name | Role | Phone [...] Chambers | | | | | [facility] | [address] [place], | | | | | Hospital Admitting | [place] [address] | | | | | Desk Located on the | [phone] | | | | | 9th floor | | | | | | [place], [place] | Joslyn Boss, | | | | | [address] | [address] | | | | | | [address] | | | | | | [place], [place] | | | | | | [address] | | | | | | [phone] | | | | | | | [...] + + + | Periph | 08/31/17; [facility]; Right; | 08/31/17 0000 by | 09/05/178 by | | ansley | Hand; 18 g; 09/05/17; 1717; Per | Guera Gresham RN | Barbie Yu RN | | IV | protocol | | | +--------+ + + + | Periph | 08/31/17; [facility] hospital; Right; | 08/31/17 0000 by [...] 09/08/17; 1999 | Abeba Mack RN | Birssa Yost RN | +--------+ + + + [...] - 09/02/2017 3:20 PM PDTRus scotty Maverick [id number] Allergies not on file No past surgical [...] be different from the original. [place] Maverick [id number] Allergies not on file NPO:NPO Status: since [...] File No results found for: RATE, ATRIALRATE, AL, QRS, QT, QTC, PAXIS, RAXIS, TAXIS, EKGDX [...]
--- OUTSIDE RECORDS SUMMARY | ~2019-12-25 | XMS | Encounter Summary ---
Demographics + + + | Address | [address] | | | [place] [address] | + + + | Home Phone [...] Author | [facility] [employer] [facility] | + + + | Organization | [facility] [place] [facility] [...] Providers + +------+ + | Care Power Plant Mechanic Name | Role | Phone | [...] | | 2018 | anned | Services [id number] | | | | | [address] | | | | | | Mailcode: [id number] | | | | | | [facility] | | | | | | [place], [place] | | | | | | [address] | | | | | | [phone] | | | +--------+ + + + [...]
--- OUTSIDE RECORDS SUMMARY | ~2019-12-25 | XMS | Encounter Summary ---
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 [place] [address] [facility] [address] [phone] Associated attestation - Chaz Hernandez MD - 10/08/2017 12:16 PM PDTI saw and examined th e patient today with KESHAWN Martin, and agree with the assessement and plan a s outlined in her note. No acute events. Seems to be slowly improving from MS. Appreciate ps ychiatry recs. Chaz Hernandez MD, FACS Network Systems Engineer, Trauma, Critical Care and Acute Care [...] - patient unable to come out fo INSIDE BARREL POLISHER for now - Will likely need for [...] by patient, but wound remains cl zeferino/dry/intact. [place] removed 09/17. #Left hemothorax Chest tube placed [...] [place] [phone] [facility] [place] [address] [address] [facility] [phone] Associated attestation - Chaz Hernandez MD - 10/07/2017 11:15 AM PDTI saw and examined th e patient today with KESHAWN Martin, and agree with the assessement and plan a s outlined in her note. Will consider changing to bolus TF. Plan Gabriel-oconnor tube next week. Chaz Hernandez MD, FACS Network Systems Engineer, Trauma, Critical Care and Acute Care [...] p atient unable to come out fo INSIDE BARREL POLISHER for now Resolved or chronic issues/Plan: #Previous [...] by patient, but wound remains dkue n/dry/intact. Fernandez removed 09/17. #Left hemothorax Chest [...] issues, including restraints. Venita Pruitt PA-[place] [phone] [place] [phone] [facility] [place] [address] [place] [address] [phone] Associated attestation - Em Cunningham MD - 10/17/2017 10:13 AM PDTI was present and rou nded with the Advanced Practice Provider today . I interviewed and examined the patient. I reviewed the history, as documented today. I agree with the ASHLEY assessment and plan. TBI has remained stable. On lovenox. Will continue haldol per psych.. EM CUNNINGHAM MD [facility] [address] [place] [address] [address] [place] [address] Venita Pruitt PA-C - 10/05/2017 8:38 AM [...] p atient unable to come out fo INSIDE BARREL POLISHER for now Resolved or chronic issues/Plan: #Previous [...] by patient, but wound remains duke n/dry/intact. [place] removed 09/17. #Left hemothorax Chest tube placed [...] issues, including restraints. Venita Pruitt PA-[place] [phone] [place] [phone] [facility] [address] [place] [phone] Associated attestation - Shlomo Bravo MD - 10/06/2017 7:28 AM PDTFormatting of this note m ight be different from the original. I saw and examined Diogenes Temple ([id number]) with the TRAUMA team on 10/05/2017. I [...] and incen tive spirometry for pulmonary toliet. consumer lending manager for disposition planning and placement. Shlomo Bravo MD Samples And Repairs Preparer Division of Trauma and Critical Care Venita [...] pelvic ring fracture - Left humerus fracture [facility] Day #34 Abx: None Procedures: 08/31/17: Left [...] (baseline from previous TBI ) Neck: in [place] collar Respiratory: CTA b.l CV: RRR GI: [...] p atient unable to come out fo INSIDE BARREL POLISHER for now Resolved or chronic issues/Plan: #Previous [...] by patient, but wound remains duke n/dry/intact. [place] removed 09/17. #Left hemothorax Chest tube placed [...] issues, including restraints. Venita Pruitt PA-[place] [phone] [facility] [place] [address] [address] [facility] [place] [facility] [phone] Associated attestation - Fidelina Shields MD - [...] and only enteral access. Fidelina Shields MD Network Systems Engineer Division of Trauma, Critical Care and Acute Care Surgery Office: [phone] Pager: [phone] Leonor Torres ACNP - 10/03/2017 3:13 PM [...] (baseline from previous TBI ) Neck: in [place] collar Respiratory: CTA bilaterally, no distress CV: [...] p atient unable to come out fo INSIDE BARREL POLISHER for now Resolved or chronic issues/Plan: Previous [...] by patient, but wound remains duke n/dry/intact. [place] removed 09/17. #Left hemothorax Chest tube placed [...] PDTAttending: I saw and examined Diogenes Temple ([id number]) with CB Hair on morning rounds 10/03 and agree with the assessment and plan as outlined in this note and participated in the planning of care. Mental status is slightly better, remains sedated but he is interactive and at least somewh at oriented. Enteral nutrition advancing and, as approaches goal, will turn TPN off. Place ment remains a significant issue. Fidelina Shields MD Network Systems Engineer Division of Trauma, Critical Care and Acute Care Surgery Office: [phone] Pager: [phone] July Harp PA-C - 10/03/2017 12:58 PM [...] the C-collar when in bed then the INSIDE BARREL POLISHER when out of bed until 12/01/17. JULY HARP PA-C [facility] [address] [place] [address] Associated attestation - Magdiel Stock MD - 10/04/2017 6:02 PM PDTI performed a history a nd physical examination of the patient and discussed the management with the advanced practi ce provider, July Harp PA-C. I reviewed the advanced practice provider's note and agree w ith the plan of care as documented. Continue cervical collar and INSIDE BARREL POLISHER for 3 months to ensure fracture healing and prevent development of post-fracture cervical kyphosis. Magdiel Stock MD Network Systems Engineer Department of Neurological Surgery [facility] Sherine Sarmiento, AGAPETER [facility] - 10/02/2017 12:54 PM PDTFormatting of [...] (baseline from previous TBI ) Neck: in [place] collar Respiratory: CTA bilaterally, lungs symmetrical, equal chest wall rise, no retractions CV: RRR GI: non tender, soft, active BS, last BM 09/30 : Patient voiding without difficulty Extremities: no peripheral edema, wiggles toes and toes pink and well perfused Musculoskeletal: 5/5 porcelain turner strength on right, 3/5 porcelain turner strength on left FEN: on TPN, transitioning [...] AMS & delirium - numerous evaluations by CHUMMER with trials of PO - now s/p [...] . - C-collar at all times, use INSIDE BARREL POLISHER when OOB - Follow-up with Neurosurgery on [...] will decrease scheduled [place]g [phone] Associated attestation - Fidelina Shields MD - 10/02/2017 4:40 PM PDTAttending: I saw and examined Diogenes Temple ([id number]) with K[facility]HAWN [facility] 10/02/17 and agree [...] place prior to DC Fidelina Shields MD Network Systems Engineer Division of Trauma, Critical Care and Acute Care Surgery Office: [phone] Pager: [phone] Sherine Sarmiento AGACNP - 10/01/2017 7:27 AM [...] (baseline from previous TBI ) Neck: in [place] collar Respiratory: CTA bilaterally, lungs symmetrical, equal chest wall rise, no retractions CV: RRR GI: non tender, soft, active BS, last BM 09/30 : Patient voiding without difficulty Extremities: no peripheral edema, wiggles toes and toes pink and well perfused Musculoskeletal: 5/5 porcelain turner strength on right, 3/5 porcelain turner strength on left FEN: on TPN Heme/ID: [...] AMS & delirium - numerous evaluations by CHUMMER with trials of PO - now s/p modified barium swallow x2 which indicates aspiration - continue NPO - CHUMMER reports that patient working on tongue strength [...] . - C-collar at all times, use INSIDE BARREL POLISHER when OOB - Follow-up with Neurosurgery on 10/21 with repeat X-rays #Blunt abdominal trauma #Splenic laceration S/p laparotomies x2. Fascia closed 09/02 Wound vac removed by patient, but wound remains duke n/dry/intact. [place] removed 09/17. #Left hemothorax Chest tube placed [...] trauma team and [place]g [phone] Associated attestation - Fidelina Shields MD - 10/02/2017 4:40 PM PDTAttending: I saw and examined Diogenes Temple ([id number]) with KESHAWN Alexander on mornin g rounds 10/01/17 and agree with the assessment and plan as outlined in this note and partic ipated in the planning of care. Will trial DHT placement today, CT head unchanged. Suspect somnolence is medication side ef fect and, if persistent, may need to wean antipsychotic doses. Fidelina Shields MD Network Systems Engineer Division of Trauma, Critical Care and Acute Care Surgery Office: [phone] Pager: [phone] Christian Kelley PA-C - 09/30/2017 12:21 PM [...] Fixed and dilated on left Neck: in [place] collar Respiratory: CTA bilaterally, lungs symmetrical, equal chest wall rise, no retractions CV: RRR GI: non tender, soft, active BS, last BM 09/30 : Patient voiding without difficulty Extremities: no peripheral edema, wiggles toes and toes pink and well perfused Musculoskeletal: 5/5 porcelain turner strength on right, 3/5 porcelain turner strength on left FEN: on TPN Heme/ID: [...] AMS & delirium - numerous evaluations by CHUMMER with trials of PO - now s/p modified barium swallow x2 which indicates aspiration - continue NPO - CHUMMER reports that patient working on tongue strength [...] . - C-collar at all times, use INSIDE BARREL POLISHER when OOB - Follow-up with Neurosurgery on 10/21 with repeat X-rays #Blunt abdominal trauma #Splenic laceration S/p laparotomies x2. Fascia closed 09/02 Wound vac removed by patient, but wound remains duke n/dry/intact. [place] removed 09/17. #Left hemothorax Chest tube placed [...] PDTAttending: I saw and examined Diogenes Temple ([id number]) with Christian Kelley PA-C on morning rounds 09/30 and agree with the assessment and plan as outlined in this note and participated in the planning of care. Mentally slower this morning, but non-focal. Received haldol overnight for sleep. Repeat head CT was unchanged so suspect etiology of slowed responsiveness is the antipsychotic dose . CHUMMER believes that, once collar off, may be able to take PO more effectively and thus will hold off on surgical feeding access. TPN is a temporary solution and if patient remains kaye nable will trial DHT tomorrow. Working with psychiatry for medication recommendations. Fidelina Shields MD Network Systems Engineer Division of Trauma, Critical Care and Acute Care Surgery Office: [phone] Pager: [phone] July Harp PA-C - 09/30/2017 8:23 AM PDTBrief Neurosurgery Wound Check: Wound is dry, without erythema, not fluctuant. No acute swelling. Nylon in place. Will plan to follow peripherally for wound checks and remove nylons on 10/09. JULY HARP PA-C [facility] [address] [place] [address] Christian Begum PA-C - 09/29/2017 7:15 AM [...] and EOMs intact to exam Neck: in [place] collar Respiratory: CTA bilaterally, lungs symmetrical, equal [...] AMS & delirium - numerous evaluations by CHUMMER with trials of PO - now s/p [...] . - C-collar at all times, use INSIDE BARREL POLISHER when OOB - Follow-up with Neurosurgery on 10/21 with repeat X-rays #Blunt abdominal trauma #Splenic laceration S/p laparotomies x2. Fascia closed 09/02 Wound vac removed by patient, but wound remains duke n/dry/intact. [place] removed 09/17. #Left hemothorax Chest tube placed [...] PDTAttending: I saw and examined Diogenes Temple ([id number]) with Christian Kelley PA-C on morning rounds [...] TPN is not an opt imal termite helper strategy, would prefer not to place surgical feeding tube if possible given r elatively recent damage control laparotomy and high risk of Mr. Temple pulling it out. Have tried DHT several times and it seems to worsen delirium and he pulls it out frequently. Tit ration of haldol in conjunction with psychiatry. Fidelina Shields MD Network Systems Engineer Division of Trauma, Critical Care and Acute Care Surgery Office: [phone] Pager: [phone] Christian Kelley PA-C - 09/28/2017 1:01 PM [...] he said, who, ariel? And then the NUTRITION INTERNSHIP helped him make a call to her. [...] and EOMs intact to exam Neck: in [place] collar Respiratory: CTA bilaterally, lungs symmetrical, equal [...] very agitated today. - EKG today with [place] QTc calculated to be 428 - optimize [...] AMS & delirium - numerous evaluations by CHUMMER with trials of PO - now s/p [...] . - C-collar at all times, use INSIDE BARREL POLISHER when OOB - Follow-up with Neurosurgery on [...] more toda y. Chaz Hernandez MD, FACS Network Systems Engineer, Trauma, Critical Care and Acute Care Surgery Chaz Hernandez MD - 09/28/2017 10:13 AM PDTTrauma Staff Seen and examined this AM with team. I have concerns abotu behaviour, as he is consistently threatening RN and ancillary staff, even attempting swings. Behavior seems worse at night. I would favor increasing night time Haldol dose, and following EKGs. Chaz Hernandez MD, FACS Network Systems Engineer, Trauma, Critical Care and Acute Care [...] Dallin Bourgeois MD Neurosurgery PGY1 | Pager #[phone] hristian Kelley PA-C - 09/27/2017 7:31 AM [...] able to have a linear conversation briefly CHUMMER requesting repeat barium swallow Current meds: I [...] incision healing , suture c/d/I Neck: in INSIDE BARREL POLISHER Respiratory: unlabored on room air, lungs symmetrical, [...] AMS & delirium - numerous evaluations by CHUMMER with trials of PO - now s/p [...] . - C-collar at all times, use INSIDE BARREL POLISHER when OOB - Follow-up with Neurosurgery on [...] cotinue TPN for now. EM CUNNINGHAM MD [facility] [address] [place] [address] Christian Kelley PA-C - 09/26/2017 6:48 AM [...] posterior scalp crani incision c/d/I Neck: in [place] collar Respiratory: unlabored on room air CV: [...] AMS & delirium - numerous evaluations by CHUMMER with trials of PO - now s/p [...] . - C-collar at all times, use INSIDE BARREL POLISHER when OOB - Follow-up with Neurosurgery on 10/21 with repeat X-rays #Blunt abdominal trauma #Splenic laceration S/p laparotomies x2. Fascia closed 09/02 Wound vac removed by patient, but wound remains duke n/dry/intact. [place] removed 09/17. #Left hemothorax Chest tube placed [...] Continue NPO and TPN. EM CUNNINGHAM MD [facility] [address] [place] [address] Christian Kelley PA-C - 09/25/2017 7:49 AM [...] HEENT: EOMs intact to exam Neck: in INSIDE BARREL POLISHER brace Respiratory: unlabored on room air CV: [...] AMS & delirium - numerous evaluations by CHUMMER with trials of PO - now s/p [...] . - C-collar at all times, use INSIDE BARREL POLISHER when OOB - Follow-up with Neurosurgery on 10/21 with repeat X-rays #Blunt abdominal trauma #Splenic laceration S/p laparotomies x2. Fascia closed 09/02 Wound vac removed by patient, but wound remains duke n/dry/intact. [place] removed 09/17. #Left hemothorax Chest tube placed [...] LFTS wnl. Continue TPN. EM CUNNINGHAM MD [facility] [address] [place] [address] Christian Kelley PA-C - 09/24/2017 11:07 AM [...] with agitation Having difficulty swallowing again - CHUMMER to re-eval and obtain barium swallow Current [...] HEENT: EOMs intact to exam Neck: in INSIDE BARREL POLISHER brace Respiratory: CTA bilaterally, lungs symmetrical, equal chest wall rise, no retractions CV: RRR GI: non distended, last BM 09/23 : good urine output Extremities: SCD's in place, no peripheral edema, wiggles toes and toes pink and well perfu sed Musculoskeletal: 5/ strength in bilateral porcelain turner (but with slightly weaker on left) , [...] seroquel dose QHS for insomnia/restlessness at [facility] - Haldol 5mg q12hr prn [...] likely 2/2 AMS & delirium - Failed CHUMMER eval 09/19 & 09/20, made NPO & dobhoff reinserted 09/21 but pulled overnight - Per CHUMMER on 09/21, ok for therapeutic pureed with [...] . - C-collar at all times, use INSIDE BARREL POLISHER when OOB - Follow-up with Neurosurgery on [...] Start abx for dehiscence. EM CUNNINGHAM MD [facility] [address] [place] [address] Gniette Campos PA-C - 09/24/2017 9:31 AM PDTFormatting [...] 4 extremities Unable to assess drift. Motor: Consulting Sales Executive Bicep Tricep Delt R 5 5 5 [...] further questions or concerns. Ginette Campos PA-C [facility] [address] [place] [address] [facility] At[facility] AGAC[facility] - 09/23/2017 6:32 AM PDT [...] hiscence, draining minimal serosang fluid Neck: in INSIDE BARREL POLISHER brace Respiratory: unlabored on room air CV: [...] seroquel dose QHS for insomnia/restlessness at [facility] - Repeat ECG 09/22 with [...] likely 2/2 AMS & delirium - Failed CHUMMER eval 09/19 & 09/20, made NPO & dobhoff reinserted 09/21 but pulled overnight - Per CHUMMER on 09/21, ok for therapeutic pureed with [...] . - C-collar at all times, use INSIDE BARREL POLISHER when OOB - Follow-up with Neurosurgery on 10/21 with repeat X-rays #Blunt abdominal trauma #Splenic laceration S/p laparotomies x2. Fascia closed 09/02 Wound vac removed by patient, but wound remains duke n/dry/intact. [place] removed 09/17. #Left hemothorax Chest tube placed [...] ium improves Sherine Sarmiento, [facility] [place] [address] Dallin Deshpande MD - 09/22/2017 8:03 AM [...] Dallin Bourgeois MD Neurosurgery PGY1 | Pager #[phone] [facility] Hospital[facility] Atkins AGACNP - 09/22/2017 6:52 AM PDTFormatting [...] 24hr events: - Therapeutic purees initiated by CHUMMER yesterday - Trickle feeds via Dobbhoff, pt pulled Dobbhoff yesterday evening- not replaced - MAIL CENSOR called around 2130 for new left facial droop (see separate notes), CT revealed increa se in SDH from 12 to 17mm with no change in midline shift. [facility] - NSG and stroke [...] sluggish. Slight left facial droop Neck: in [place] collar Respiratory: unlabored on room air CV: [...] seroquel dose QHS for insomnia/restlessness at [facility]- - Repeat ECG 09/22 with Q Tc WNL. - Haldol 5mg q12hr prn for severe agitation #Substance abuse, concern for Alcohol withdrawal - CIWA discontinued 09/08, not scoring. - Thiamine & folate started 09/21 #Dysphagia, risk for aspiration #Protein calorie malnutirtion - likely 2/2 AMS & delirium - Failed CHUMMER eval 09/19 & 09/20, made NPO & dobhoff reinserted 09/21 but pulled overnight - Per CHUMMER on 09/21, ok for therapeutic pureed with [...] . - C-collar at all times, use INSIDE BARREL POLISHER when OOB - Follow-up with Neurosurgery on 10/21 with repeat X-rays #Blunt abdominal trauma #Splenic laceration S/p laparotomies x2. Fascia closed 09/02 Wound vac removed by patient, but wound remains duke n/dry/intact. [place] removed 09/17. #Left hemothorax Chest tube placed [...] delirium improves Sherine Sarmiento, [facility] Pg [phone] Associated attestation - Nubia Nieto MD,MPH - [...] Care & Acute Care Surgery [facility] [phone] Sami Black - 09/21/2017 10:25 PM PDTBrief [...] in the morning. Plan: -neuro checks; page [phone] for any decline in neurological examination -pain control -Hard C collar at all times and place INSIDE BARREL POLISHER prior to mobilizing OOB. Anticipated duration of Collar/INSIDE BARREL POLISHER is 12 weeks -repeat CT head for any new decline in neurological exam and page [phone] -NPO at midnight tonight -please hold tonight's planned dose of Lovenox -further recommendations in the morning Sami Black MD, PhD PGY-3 Resident Neurosurgery [id number] signed by Sami Balck at 09/21/2017 10:50 PM PDTCleSherine estrella AGACN [...] Provena placem ent 24hr events: - Failed CHUMMER eval again yest morning, continued NPO - [...] reactive. Dobbhoff tube in place Neck: in [place] collar Respiratory: unlabored on room air CV: [...] likely 2/2 AMS & delirium - Failed CHUMMER eval 09/19 & 09/20, made NPO & dobhoff reinserted yesterday - Trickle feeds started this am at 20ml/hr, increase very slowly by 10ml every 12 hrs to go al of 75 due to hx of mesenteric hematomas and previous inability to tolerate TF - Per CHUMMER today, ok for therapeutic pureed with nectar [...] . - C-collar at all times, use INSIDE BARREL POLISHER when OOB - Follow-up with Neurosurgery on [...] & [place] [phone] Associated attestation - Fidelina Shields MD - 09/21/2017 9:36 PM PDTAttending: I saw and examined Diogenes Temple ([id number]) with KESHAWN Alexander on mornin g rounds [...] enough to re-trial PO. Fidelina Shields MD Network Systems Engineer Division of Trauma, Critical Care and Acute Care Surgery Office: [phone] Pager: [phone] Sherine Sarmiento AGACNP - 09/20/2017 7:41 AM [...] haldol given yesterday afternoon for agitation - CHUMMER paged to re-eval in afternoon after concern for aspiration, made NPO by CHUMMER - DARNELL SOLANO Current meds: I have [...] right pupil 3 and reactive Neck: in [place] collar Respiratory: unlabored on room air CV: [...] thick/pureed d iet. Made NPO yesterday by CHUMMER after concern for aspiration. This is likely 2/2 waxing & wan ing delirium & AMS - CHUMMER re-eval today recommend continue NPO d/t overt clinical signs of aspiration - Place Dobbhoff tube and restart feeds, slowly progress to goal - Stop TPN when tolerating tube feeds - CHUMMER will follow closely, as his AMS improves [...] . - C-collar at all times, use INSIDE BARREL POLISHER when OOB - Follow-up with Neurosurgery on 10/21 with repeat X-rays #Blunt abdominal trauma #Splenic laceration S/p laparotomies x2. Fascia closed 09/02 Wound vac removed by patient, but wound remains duke n/dry/intact. [place] removed 09/17. #Left hemothorax Chest tube placed [...] & delirium [place]g [phone] Associated attestation - Fidelian Shields MD - 09/20/2017 9:34 PM PDTAttending: I saw and examined Diogenes Temple ([id number]) with KESHAWN Alexander on mornin g rounds [...] dispo planning when able. Fidelina Shields MD Network Systems Engineer Division of Trauma, Critical Care and Acute Care Surgery Office: [phone] Pager: [phone] Mary Medrano MD,MPH - 09/19/2017 6:22 AM [...] downgraded from thin to thick liquids by CHUMMER Current meds: I have independently reviewed current [...] intact, small Right fluctuant pseudomeningocele Neck: in [place] collar Respiratory: unlabored on room air CV: [...] DHT on09/19. - Cleared for diet by CHUMMER, tolerating purees, 749 Calories yesterday - Restart Calorie count: if taking >700 again will be OK for full po diet, otherwise replac e DHT and restart TF - Stop TPN tomorrow regardless - Still considering repeat CT abdomen/pelvis #Dysphagia DHTreplaced overnight 09/07. TF held due to emesis and possible ileus, aspiration risk. DH T pulled overnight on 09/18 - CHUMMER as able Resolved or chronic issues/Plan: #BIG 3 TBI #Right synthetic cranioplasty Neurosurgery consulted. Non-operative management. Last head CT 09/12 stable. Expected pseudo meningocele. Left-sided deficits consistent with baseline. - Stat head CT for any neurologic decline #C7 bilateral lamina fractures #C6-T2 spinous process fractures Neurosurgery consulted. Non-operative management. Upright cervical X-rays completed on 09/14 . - C-collar at all times, use INSIDE BARREL POLISHER when OOB - Follow-up with Neurosurgery on 10/21 with repeat X-rays #Blunt abdominal trauma #Splenic laceration S/p laparotomies x2. Fascia closed 09/02 Wound vac removed by patient, but wound remains duke n/dry/intact. [place] removed 09/17. #Left hemothorax Chest tube placed [...] M.D., M.P.H. Neurological Surgery Resident PGY-1 Pager: [phone] Associated attestation - Fidelina Shields MD - 09/19/2017 1:36 PM PDTAttending: I saw and examined Diogenes Temple ([id number]) with the residents on morning rounds 09/19/17 and agree with the assessment and plan as outlined in this note and participated in the plan aashish of care. Improving po intake, will titrate TPN. Plan to DC TPN tomorrow and transition to PO vs PO + TF depending on calorie counts. Once of restraints will begin looking for placement. Fidelina Shields MD Network Systems Engineer Division of Trauma, Critical Care and Acute Care Surgery Office: [phone] Pager: [phone] Mary Medrano MD,MPH - 09/18/2017 6:17 AM [...] fluctuant pseudomeningocele,Dobhoff tubein p lace Neck: in [place] collar Respiratory: unlabored on room air CV: [...] holding TF - Cleared for diet by CHUMMER, tolerating small quantities of purees - Will need repeat CT A/P within 1-2 days #Hypervolemia I&O approaching even. Appears to have been auto-diuresing. - Continue to monitor urine output - Monitor electrolytes, replete prn #Dysphagia DHTreplaced overnight 09/07. TF held due to emesis and possible ileus, aspiration risk. - CHUMMER as able #C7 bilateral lamina fractures #C6-T2 spinous process fractures Neurosurgery consulted. Non-operative management. Upright cervical X-rays completed on 09/14 . - C-collar at all times, use INSIDE BARREL POLISHER when OOB - Follow-up with Neurosurgery on [...] M.D., M.P.H. Neurological Surgery Resident PGY-1 Pager: [phone] signed by Fidelina Shields MD at 09/19/2017 3:58 PM PDT Associated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 + | Service Account, [employer] Res In Interface - 12/03/2017 4:56 PM [...] | + + + + + | [facility]ORY | [address] | [place] [address] | | | NATALEE WORTHINGTON | VILMA [...] Note | + + | Service Account, [employer] In Interface - 12/03/2017 10:30 AM PDT [...] DEPT OF | [address] | [place], [place] | | | CARDIOLOGY | [address] | [address] | | + + + + + [...] | + + + + + | [facility] | [address] | [place] [address] | | | SERVICES, CORE | VILMA [...] + | [facility] - | [address] | [place] [address] | | | [place] | | | | + + + [...] | + + + + + | [facility]ATORY | [address] [facility] [facility] | [place] [address] | | | NATALEE WORTHINGTON | VILMA [...] | + + + + + | [facility] | [address] [facility] [facility] [facility] | [place] [address] | | | SERVICES, CORE | VILMA [...] [facility] | [address] | [place] [address] | | | SERVICES, CORE | VILMA [...] | | | LABORATORY | | | [place]ICAN | | | SERVICES, | | | [...] | + + + + + | [facility] | [address] | [place] [address] | | | SERVICES, NATALEE | VILMA [...] | + + + + + | [facility] | [address] | [place] [address] | | | SERVICES, CORE | PARK [...] | + + + + + | [facility] DEPT OF | [address] | [place], [place] | | | CARDIOLOGY | [address] | [address] | | + + + + + [...] GEET OF | [address] | [place], [place] | | | CARDIOLOGY | [address] | [address] | | + + + + + [...] | | | LABORATORY | | | [place]ICAN | | | SERVICES, | | | [...] 7 | 4 - 11 mmol/L | [facility] | | | GAP(ALB | | [...] | + + + + + | [facility] | [address] [facility] [facility] | [place] [address] | | | SERVICES, CORE | VILMA [...] | + + + + + | [facility] | [address] | [place] [address] | | | SERVICES, CORE | PARK [...] + + | [facility] DEPT OF | [address] | [place], [place] | | | CARDIOLOGY | [address] | [address] | | + + + + + [...] Note | + + | Service Account, [employer] In Interface - 11/26/2017 12:36 PM PDT [...] + | [facility] - | [address] | [place] [address] | | | [place] | | | | + + + [...] [facility] | [address] | [place] [address] | | | SERVICES, CORE | PARK [...] | [facility] | [address] [facility] [facility] | [place] [address] | | | SERVICES, NATALEE | PARK [...] [facility] | [address] | [place] [address] | | | SERVICES, CORE | PARK [...] | + + + + + | [facility] | [address] | [place] [address] | | | SERVICES, NATALEE | VILMA [...] | | | LABORATORY | | | [place] | | | SERVICES, | | | [...] | + + + + + | [facility] | [address] [facility] | [place] [address] | | | SERVICES, CORE | PARK [...] | + + + + + | [facility] | [address] | [place] [address] | | | SERVICES, CORE | VILMA [...] DEPT OF | [address] | [place], [place] | | | CARDIOLOGY | [address] | [address] | | + + + + + [...] DEPT OF | [address] | [place], [place] | | | CARDIOLOGY | [address] | [address] | | + + + + + [...] DEPT OF | [address] | [place], [place] | | | CARDIOLOGY | [address] | [address] | | + + + + + [...] DEPT OF | [address] | [place], [place] | | | CARDIOLOGY | [address] | [address] | | + + + + + [...] | | | LABORATORY | | | [place]ICAN | | | SERVICES, | | | [...] [facility] | [address] | [place] [address] | | | SERVICES, CORE | PARK [...] | + + + + + | [facility] | [address] | [place] [address] | | | SERVICES, [facility] | [address] | [...] Note | + + | Service Account, [employer] Res In Interface - 11/19/2017 11:26 AM [...] DEPT OF | [address] | [place] | | | CARDIOLOGY | [address] | [address] | | + + + + + [...] GEET OF | [address] | [place], [place] | | | CARDIOLOGY | [address] | [address] | | + + + + + [...] [facility] | [address] | [place] [address] | | | SERVICES, CORE | PARK [...] | + + + + + | [facility] | [address] | [place] [address] | | | SERVICES, CORE | VILMA [...] + | [facility] - | [address] | [place] [address] | | | [place] | | | [...] | + + + + + | [facility] | [address] | [place] [address] | | | SERVICES, CORE | PARK [...] [facility] | [address] | [place] [address] | | | SERVICES, CORE | VILMA [...] | | | LABORATORY | | | [place] | | | SERVICES, | | | [...] | + + + + + | [facility] | [address] | [place] [address] | | | SERVICES, CORE | VILMA [...] | + + + + + | [facility] | [address] [facility] | [place] [address] | | | SERVICES, CORE | PARK [...] + + | [facility] DEPT OF | [address] | [place], [place] | | | CARDIOLOGY | [address] | [address] | | + + + + + [...] DEPT OF | [address] | [place], [place] | | | CARDIOLOGY | [address] | [address] | | + + + + + [...] | + + + + + | [facility] | [address] | [place] [address] | | | SERVICES, CORE | [address] | | | + + + + + 12 LEAD ECG (11/15/2017 8:21 AM PDT) + + + + + + | Component | Value | Ref Range | Performed | Pathologist | | | | | At | Signature | + + + + + + | VENTRICULAR | 51 | bpm | [facility] | | | RATE | | [...] | + + + + + | [facility] OF | [address] | [place], [place] | | | CARDIOLOGY | [address] | [address] | | + + + + + [...] | | | LABORATORY | | | [place] | | | SERVICES, | | | [...] | + + + + + | [facility] | [address] | [place] [address] | | | SERVICES, CORE | PARK [...] | + + + + + | [facility] | [address] | [place] [address] | | | NATALEE WORTHINGTON | VILMA [...] + + + + + + | [facility] [place] | 427 | ms | [facility] [...] + | [facility] | [address] [facility] [address] | [place], [place] | | | CARDIOLOGY | [address] | [address] | | + + + + + [...] [facility] | [address] | [place] [address] | | | SERVICES, CORE | PARK [...] | | | LABORATORY | | | [place] | | | SERVICES, | | | [...] the MDRD equation recommended by the | [facility] | | National Kidney Disease Education [...] | + + + + + | [facility] | [address] | [place] [address] | | | NATALEE WORTHINGTON | VILMA [...] + | [facility] - | [address] | [place] [address] | | | [place] | | | | + + + [...] [facility] | [address] [facility] | [place], [place] | | | CARDIOLOGY | [address] | [address] | | + + + + + [...] | + + + + + | [facility] | [address] | [place] [address] | | | SERVICES, CORE | VILMA [...] + | [facility] - | [address] | [place] [address] | | | [place] | | | [...] [facility] | [address] [facility] | [place], [place] | | | CARDIOLOGY | [address] | [address] | | + + + + + [...] | + + + + + | [facility] | [address] | [place] [address] | | | SERVICES, CORE | PARK [...] | | | | | | [facility] | | + +-------+ + + + + + | Specimen | + + | Blood - Blood | | (substance) | + + + + + + + | Performing | Address | City/State/Zipcode | Phone Number | | Organization | | | | + + + + + | [facility] - | [address] | [place] [address] | | | [place] | | | [...] | + + + + + | [facility] | [address] [facility] | [place] [address] | | | SERVICES, CORE | PARK [...] | [facility] | [address] [facility] | [place] [address] | | | SERVICES, CORE | VILMA [...] | + + + + + | [facility] | [address] [facility] | [place] [address] | | | SERVICES, CORE | [address] [...] | | | LABORATORY | | | [place] | | | SERVICES, | | | [...] | + + + + + | [facility] | [address] | [place] [address] | | | SERVICES, CORE | VILMA [...] [facility] | [address] | [place] [address] | | | SERVICES, CORE | PARK [...] [facility] | [address] | [place] [address] | | | SERVICES, CORE | PARK [...] | | | LABORATORY | | | [place] | | | SERVICES, | | | [...] the MDRD equation recommended by the | [facility] | | National Kidney Disease Education Program. [...] | + + + + + | [facility] | [address] [facility] | [place] [address] | | | NATALEE WORTHINGTON | VILMA [...] DEPT OF | [address] | [place], [place] | | | CARDIOLOGY | [address] | [address] | | + + + + + [...] [facility] | [address] | [place] [address] | | | SERVICES, CORE | PARK [...] | | | LABORATORY | | | [place] | | | SERVICES, | | | [...] the MDRD equation recommended by the | [facility] | | National Kidney Disease Education [...] | + + + + + | [facility] | [address] | [place] [address] | | | SERVICES, CORE | [address] | | | + + + + + MAGNESIUM, PLASMA (11/09/2017 4:18 AM PDT) + +-------+ + + + | Component | Value | Ref Range | Performed | Pathologist | | | | | At | Signature | + +-------+ + + + | MAGNESIUM,P | 2.0 | 1.6 - 2.6 mg/dL | [facility] | | | LASMA | | [...] [facility] | [address] | [place] [address] | | | SERVICES, NATALEE | VILMA [...] | | | LABORATORY | | | [place] | | | SERVICES, | | | [...] | + + + + + | [facility] | [address] | [place] [address] | | | SERVICES, CORE | VILMA [...] | + + + + + | [facility] | [address] | [place] [address] | | | SERVICES, CORE | PARK [...] | | | LABORATORY | | | [place] | | | SERVICES, | | | [...] | + + + + + | [facility] | [address] | [place] [address] | | | SERVICES, CORE | PARK [...] GEET OF | [address] | [place], [place] | | | CARDIOLOGY | [address] | [address] | | + + + + + [...] Note | + + | Service Account, [employer] Res In Interface - 11/07/2017 4:05 PM [...] DEPT OF | [address] | [place], [place] | | | CARDIOLOGY | [address] | [address] | | + + + + + [...] | | | LABORATORY | | | [place] | | | SERVICES, | | | [...] | + + + + + | [facility] | [address] | [place] [address] | | | SERVICES, CORE | [address] | | | + + + + + MAGNESIUM, PLASMA (11/07/2017 7:22 AM PDT) + +-------+ + + + | Component | Value | Ref Range | Performed | Pathologist | | | | | At | Signature | + +-------+ + + + | MAGNESIUM,P | 1.8 | 1.6 - 2.6 mg/dL | [facility] | | | LASMA | | | [...] [facility] | [address] | [place] [address] | | | SERVICES, CORE | VILMA [...] + + + + | PRODUCT | [id number] | | [facility] | | | UNIT [...] + + + + | EXPIRATION | [id number] | | [facility] | | | DATE [...] + + + + | BLOOD | [id number] | | [facility] | | | PRODUCT [...] [facility] | [address] | [place] [address] | | | SERVICES, | [address] [...] + + + + | PRODUCT | [id number] | | [facility] | | | UNIT [...] + + + + | EXPIRATION | [id number] | | [facility] | | | DATE [...] + + + + | BLOOD | [id number] | | [facility] | | | PRODUCT [...] [facility] | [address] | [place] [address] | | | SERVICES, | [address] [...] | + + + + + | [facility] | [address] | [place] [address] | | | NATALEE WORTHINGTON | VILMA [...] | + + + + + | [facility] | [address] | [place] [address] | | | SERVICES, CORE | PARK [...] | | | LABORATORY | | | [place] | | | SERVICES, | | | [...] | + + + + + | [facility] | [address] | [place] [address] | | | SERVICES, CORE | [address] | | | + + + + + OPERATION RECORD (11/06/2017 12:27 AM PDT) + + | Procedure Note | + + | Magdiel Stock MD - 11/06/2017 12:27 AM PDT Date of Service: 11/05/2017 Attending | | Surgeon: Magdiel Stock MD Staff Appraiser(s): Rg Aiken MD | | Preoperative Diagnoses: [...] head was placed in a horseshoe head coach with his C-collar still | | [...] the incision down to the cranium. Once hoonah | | skull was reached circumferentially around the prior incision, a #1 Garnett was used | | to subperiosteally dissect [...] | | [facility] [id number] [place], [place] | | [id number] Orina, MDJB/TAHIRLDD: 11/05/2017 20:38:01DT: 11/06/2017 | | 00:27:33Job #: [id number] | |HATTIE/DUC | | | | | | /[id number] | + + CT HEAD WO CONTRAST [...] Surgeon: Magdiel | | | MD Dayami Staff Appraiser: Rg Aiken MD Pre-op Diagnosis: | | [...] PGY-4 Neurological Surgery Pager | | | [phone] | | + + + CAPILLARY BLOOD [...] - [facility] | [address] | [place], [place] | | | GLORIA GENAO OF CARE | [address] | [address] | | | TESTS | | | [...] [facility] | [address] | [place], [place] | | | [facility]INT OF CARE | [address] | [address] | | | TESTS | | | [...] [facility] | [address] | [place] [address] | | | NATALEE WORTHINGTON | PARK [...] [facility] | [address] | [place] [address] | | | SERVICES, CORE | PARK [...] | | | LABORATORY | | | [place] | | | SERVICES, | | | [...] the MDRD equation recommended by the | [facility] | | National Kidney Disease Education [...] | + + + + + | [facility] | [address] | [place] [address] | | | NATALEE WORTHINGTON | VILMA [...] | + + + + + | [facility] | [address] | [place] [address] | | | SERVICES, CORE | VILMA [...] + + + + | PRODUCT | [id number] | | [facility] | | | UNIT [...] + + + + | EXPIRATION | [id number] | | [facility] | | | DATE [...] + + + + | BLOOD | [id number] | | [facility] | | | PRODUCT [...] [facility] | [address] | [place] [address] | | | SERVICES, | [address] [...] + + + + | PRODUCT | [id number] | | [facility] | | | UNIT [...] + + + + | EXPIRATION | [id number] | | [facility] | | | DATE [...] + + + + | BLOOD | [id number] | | [facility] | | | PRODUCT [...] | + + + + + | [facility] | [address] [facility] [facility] | [place] [address] | | | SERVICES, | [address] [...] | + + + + + | [facility] | [address] | [place] [address] | | | NATALEE WORTHINGTON | PARK [...] [facility] | [address] | [place] [address] | | | SERVICES, | [address] [...] | + + + + + | [facility] | [address] [facility] [facility] [facility] | [place] [address] | | | ELIN, | [address] [...] | + + + + + | [facility] | [address] | [place] [address] | | | SERVICES, CORE | [address] | | | + + + + + 12 LEAD ECG (11/04/2017 8:35 AM PDT) + + + + + + | Component | Value | Ref Range | Performed | Pathologist | | | | | At | Signature | + + + + + + | VENTRICULAR | 71 | bpm | [facility] | | | RATE | | [...] + + | [facility] | [address] | [place], [place] | | | CARDIOLOGY | [address] | [address] | | + + + + + [...] | + + + + + | [facility] | [address] | [place] [address] | | | SERVICES, CORE | VILMA [...] | + + + + + | [facility] | [address] | [place] [address] | | | SERVICES, CORE | VILMA [...] + | [facility] - | [address] | [place] [address] | | | [place] | | | | + + + [...] | + + + + + | [facility] | [address] [facility] [facility] | [place] [address] | | | SERVICES, NATALEE | VILMA [...] [facility] | [address] | [place] [address] | | | SERVICES, CORE | PARK [...] | | | LABORATORY | | | [place] | | | SERVICES, | | | [...] the MDRD equation recommended by the | [facility] | | National Kidney Disease Education Program. [...] | + + + + + | [facility] | [address] | [place] [address] | | | NATALEE WORTHINGTON | VILMA [...] [facility] | [address] | [place] [address] | | | ELIN, NATALEE | PARK [...] | + + + + + | [facility] | [address] [facility] [facility] [facility] | [place] [address] | | | SERVICES, CORE | VILMA [...] | | | LABORATORY | | | [place] | | | SERVICES, | | | [...] [facility] | [address] | [place] [address] | | | SERVICES, NATALEE | PARK [...] [facility] | [address] | [place] [address] | | | SERVICES, CORE | PARK [...] | | | LABORATORY | | | [place] | | | SERVICES, | | | [...] | + + + + + | [facility] | [address] [facility] [facility] | [place] [address] | | | NATALEE WORTHINGTON | VILMA [...] + | [facility] | [address] [facility] [address] | [place], [place] | | | CARDIOLOGY | [address] | [address] | | + + + + + [...] [facility] | [address] | [place] [address] | | | SERVICES, CORE | PARK [...] | | | LABORATORY | | | [place] | | | SERVICES, | | | [...] the MDRD equation recommended by the | [facility] | | National Kidney Disease Education [...] | + + + + + | [facility] | [address] [facility] [facility] | [place] [address] | | | SERVICES, [facility] | [address] | [...] DEPT OF | [address] | [place], [place] | | | CARDIOLOGY | [address] | [address] | | + + + + + [...] | | | LABORATORY | | | [place] | | | SERVICES, | | | [...] the MDRD equation recommended by the | [facility] | | National Kidney Disease Education [...] | + + + + + | [facility] | [address] | [place] [address] | | | ELIN, NATALEE | VILMA [...] | + + + + + | [facility] | [address] | [place] [address] | | | NATALEE WORTHINGTON | PARK [...] [facility] | [address] | [place], [place] | | | [facility]INT OF CARE | [facility] | [address] | | | TESTS | | | [...] [facility] | [address] | [place] [address] | | | ELIN, NATALEE | VILMA [...] | | | LABORATORY | | | [place] | | | SERVICES, | | | [...] | + + + + + | [facility] | [address] [facility] [facility] | [place] [address] | | | SERVICES, CORE | VILMA [...] Note | + + | Service Account, [employer] In Interface - 10/29/2017 12:13 PM PDT [...] [facility] | [address] | [place], [place] | | | [facility]INT OF CARE | [address] | [address] | | | TESTS | | | [...] [facility] | [address] | [place] [address] | | | SERVICES, CORE | PARK [...] (H) | 70 - 99 mg/dL | [facility] | | | PLASMA | | [...] | | | LABORATORY | | | [place] | | | SERVICES, | | | [...] the MDRD equation recommended by the | [facility] | | National Kidney Disease Education [...] | + + + + + | [facility] | [address] | [place] [address] | | | NATALEE WORTHINGTON | VILMA [...] [facility] | [address] | [place], [place] | | | [facility] [employer] | [address] | [address] | | | TESTS | | | [...] [facility] | [address] | [place], [place] | | | CARDIOLOGY | [address] | [address] | | + + + + + [...] [facility] | [address] | [place], [place] | | | GL[facility]IA GE[facility]O OF CARE | [address] | [address] | | | TESTS | | | [...] [facility] | [address] | [place], [place] | | | [facility]INT OF CARE | [address] | [address] | | | TESTS | | | [...] | + + + + + | [facility] | [address] | [place] [address] | | | SERVICES, CORE | PARK [...] + | [facility] - | [address] | [place] [address] | | | [place] | | | | + + + [...] | + + + + + | [facility] | [address] | [place] [address] | | | NATALEE WORTHINGTON | VILMA [...] | + + + + + | [facility] | [address] | [place] [address] | | | SERVICES, CORE | VILMA [...] [facility] | [address] | [place] [address] | | | SERVICES, CORE | PARK [...] | | | LABORATORY | | | [place]ICAN | | | SERVICES, | | | [...] | + + + + + | [facility] | [address] [facility] | [place] [address] | | | SERVICES, NATALEE | VILMA [...] | + + + + + | [facility] | [address] | [place] [address] | | | SERVICES, CORE | VILMA [...] [facility] | [address] | [place], [place] | | | [facility] GE[facility] CARE | [address] | [address] | | | TESTS | | | [...] - [facility] | [address] | [place], [place] | | | [facility] [place] [facility] | [address] | [address] | | | TESTS | | | [...] Note | + + | Service Account, [employer] Res In Interface - 10/28/2017 9:21 AM [...] Note | + + | Service Account, [employer] Res In Interface - 10/27/2017 6:29 PM [...] TPN Procedure | | | location: Unit:[facility] Room: 4 Providers: Attending name: | [...] correct | | | patient, procedure, equipment, ict support technicians and site/side marked as | | | [...] vein. Catheter lot number: | | | [id number] with a length of 55 cm was [...] - [facility] | [address] | [place], [place] | | | [facility] [employer] | [address] | [address] | | | TESTS | | | [...] OF | [address] | [place], [place] | | | CARDIOLOGY | [address] | [address] | | + + + + + [...] [facility] | [address] | [place], [place] | | | [facility] CARE | [address] | [address] | | | TESTS | | | [...] | + + + + + | [facility] | [address] [facility] | [place] [address] | | | SERVICES, CORE | VILMA [...] | | | LABORATORY | | | [place] | | | SERVICES, | | | [...] the MDRD equation recommended by the | [facility] | | National Kidney Disease Education Program. [...] | + + + + + | [facility] | [address] | [place] [address] | | | SERVICES, CORE | VILMA [...] (H) | 70 - 99 mg/dL | [facility] - | | | GLUCOSE, | [...] [facility] | [address] | [place], [place] | | | [facility] | [address] | [address] | | | TESTS | | | [...] [facility] | [address] | [place], [place] | | | [facility] CARE | [address] | [address] | | | TESTS | | | [...] - [facility] | [address] | [place], [place] | | | [facility] | [address] | [address] | | | TESTS | | | [...] [facility] | [address] | [place] [address] | | | SERVICES, CORE | PARK [...] | | | LABORATORY | | | [place] | | | SERVICES, | | | [...] | + + + + + | [facility] | [address] | [place] [address] | | | NATALEE WORTHINGTON | VILMA [...] [facility] | [address] | [place], [place] | | | [facility] CARE | [address] | [address] | | | TESTS | | | [...] | | | LABORATORY | | | [place]ICAN | | | SERVICES, | | | [...] the MDRD equation recommended by the | [facility] | | National Kidney Disease Education [...] | + + + + + | [facility] | [address] [facility] | [place] [address] | | | NATALEE WORTHINGTON | VILMA [...] - [facility] | [address] | [place], [place] | | | [facility] CARE | [address] | [address] | | | TESTS | | | [...] DEPT OF | [address] | [place], [place] | | | CARDIOLOGY | [address] | [address] | | + + + + + [...] [facility] | [address] | [place], [place] | | | [facility] [employer] | [address] | [address] | | | TESTS | | | [...] DEPT OF | [address] | [place], [place] | | | CARDIOLOGY | [address] | [address] | | + + + + + [...] | + + + + + | [facility] | [address] | [place] [address] | | | NATALEE WORTHINGTON | VILMA [...] + | [facility] - | [address] | [place] [address] | | | [place] | | | [...] [facility] | [address] | [place] [address] | | | SERVICES, CORE | PARK [...] | + + + + + | [facility] | [address] | [place] [address] | | | SERVICES, CORE | VILMA [...] | + + + + + | [facility] | [address] | [place] [address] | | | SERVICES, CORE | VILMA [...] [facility] | [address] | [place] [address] | | | SERVICES, CORE | PARK [...] [facility] | [address] | [place] [address] | | | SERVICES, CORE | PARK [...] [facility] | [address] | [place] [address] | | | SERVICES, CORE | PARK [...] | + + + + + | [facility] | [address] | [place] [address] | | | SERVICES, CORE | VILMA [...] [facility] | [address] | [place] [address] | | | SERVICES, CORE | PARK [...] | + + + + + | [facility] | [address] | [place] [address] | | | SERVICES, CORE | [address] | | | + + + + + MAGNESIUM, PLASMA (10/24/2017 4:45 PM PDT) + +-------+ + + + | Component | Value | Ref Range | Performed | Pathologist | | | | | At | Signature | + +-------+ + + + | MAGNESIUM,P | 1.7 | 1.6 - 2.6 mg/dL | [facility] | | | [facility] | | | [...] [facility] | [address] | [place] [address] | | | SERVICES, NATALEE | VILMA [...] | | | LABORATORY | | | [place]ICAN | | | SERVICES, | | | [...] | + + + + + | [facility] | [address] [facility] | [place] [address] | | | SERVICES, NATALEE | VIL[address] [...] | | | correct patient, procedure, equipment, ict support technicians and site/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 Catheter lot number: [id number] with a length of 55 | | [...] [facility] | [address] | [place], [place] | | | [facility] CARE | [address] | [address] | | | TESTS | | | [...] | | Surgical Critical Care, PGY7 Pager: [phone] | | + + + CAPILLARY BLOOD [...] [facility] | [address] | [place], [place] | | | [facility] CARE | [address] | [address] | | | TESTS | | | [...] [facility] | [address] | [place], [place] | | | [facility] [employer] | [facility] | [address] | | | TESTS | | | [...] | | | LABORATORY | | | J[place]ICAN | | | SERVICES, | | | [...] | + + + + + | [facility] | [address] | [place] [address] | | | SERVICES, CORE | [address]ARK [...] | + + + + + | [facility] | [address] | [place] [address] | | | SERVICES, NATALEE | VILMA [...] [facility] | [address] | [place], [place] | | | [facility] | [address] | [address] | | | TESTS | | | [...] | + + + + + | [facility] | [address] | [place] [address] | | | SERVICES, CORE | PARK [...] | | | LABORATORY | | | [place]ICAN | | | SERVICES, | | | [...] | + + + + + | [facility] | [address] | [place] [address] | | | SERVICES, CORE | VILMA [...] DEPT OF | [address] | [place], [place] | | | CARDIOLOGY | [address] | [address] | | + + + + + IR GASTROSTOMY TUBE EXCHANGE (10/22/2017 2:42 PM PDT) + + | Specimen | + + | | + + + + + | Narrative | Performed At | + + + | Procedure: Gastrostomy tube exchange Primary attending | NDDANIELLE | | farm butcher: Shade Nix M.D. Preoperative diagnosis: | RADIOLOGY VOICE | | Malfunctioning Gastrostomy tube Postoperative diagnosis: Same | RECOGNITION | | Operations: Operation 1. Removal of existing Gastrostomy tube | | | over a guide wire Operation 2. Placement of 24 Anguillan GABRIEL | | | gastrostomy over guide [...] a stiff glide wire the new 24 Anguillan gastrostomy tube was | | | inserted. [...] Procedure: | | Gastrostomy tube exchangePrimary attending farm butcher: Shade Nix | | BrynPreoperative diagnosis: Malfunctioning Gastrostomy tubePostoperative diagnosis: | | SameOperations:Operation 1. Removal of existing Gastrostomy tube over a guide | | wireOperation 2. Placement of 24 Anguillan GABRIEL gastrostomy over guide wireNo sedation was [...] glide wire the | | new 24 Anguillan gastrostomy tube was inserted. The position of [...] stiff g lide wire the new 24 Anguillan | |gastrostomy tube was inserted. The position [...] Note | + + | Service Account, [employer] In Interface - 10/22/2017 10:34 AM PDT [...] [facility] | [address] [facility] | [place], [place] | | | CARDIOLOGY | [address] | [address] | | + + + + + [...] | + + + + + | [facility] | [address] | [place] [address] | | | SERVICES, CORE | VILMA [...] | | | LABORATORY | | | [place] | | | SERVICES, | | | [...] the MDRD equation recommended by the | [facility] | | National Kidney Disease Education [...] | + + + + + | [facility] | [address] | [place] [address] | | | ELIN, NATALEE | [address] | | | + + + + + 12 LEAD ECG (10/21/2017 2:12 PM PDT) + + + + + + | Component | Value | Ref Range | Performed | Pathologist | | | | | At | Signature | + + + + + + | VENTRICULAR | 61 | bpm | [facility] | | | RATE | [...] [facility] | [address] [facility] | [place], [place] | | | CARDIOLOGY | [address] | [address] | | + + + + + [...] | | | LABORATORY | | | [place]ICAN | | | SERVICES, | | | [...] the MDRD equation recommended by the | [facility] | | National Kidney Disease Education [...] | + + + + + | [facility] | [address] | [place] [address] | | | SERVICES, CORE | PARK [...] [facility] | [address] | [place] [address] | | | SERVICES, CORE | VILMA [...] [facility] | [address] | [place], [place] | | | CARDIOLOGY | [address] | [address] | | + + + + + [...] [facility] | [address] | [place] [address] | | | SERVICES, CORE | PARK [...] | | | LABORATORY | | | [place] | | | SERVICES, | | | [...] the MDRD equation recommended by the | [facility] | | National Kidney Disease Education [...] | + + + + + | [facility] | [address] | [place] [address] | | | NATALEE WORTHINGTON | VILMA [...] OF | [address] | [place], [place] | | | CARDIOLOGY | [address] | [address] | | + + + + + [...] | | | LABORATORY | | | [place] | | | SERVICES, | | | [...] the MDRD equation recommended by the | [facility] | | National Kidney Disease Education Program. [...] | + + + + + | [facility] | [address] | [place] [address] | | | SERVICES, CORE [...] [facility] | [address] | [place] [address] | | | SERVICES, NATALEE | VILMA [...] DEPT OF | [address] | [place], [place] | | | CARDIOLOGY | [facility] | [address] | | + + + + + [...] | | | LABORATORY | | | [place] | | | SERVICES, | | | [...] the MDRD equation recommended by the | [facility] | | National Kidney Disease Education [...] | + + + + + | [facility] | [address] | [place] [address] | | | NATALEE WORTHINGTON | VILMA [...] | + + + + + | [facility] | [address] | [place] [address] | | | SERVICES, CORE | VILMA [...] Note | + + | Service Account, [employer] Res In Interface - 10/15/2017 3:58 PM [...] DEPT OF | [address] | [place], [place] | | | CARDIOLOGY | [address] | [address] | | + + + + + [...] [facility] | [address] | [place], [place] | | | [facility] | [facility] | [address] | | | TESTS | | | [...] | + + + + + | [facility] | [address] | [place] [address] | | | SERVICES, CORE [...] [facility] | [address] | [place], [place] | | | [facility] | [address] | [address] | | | TESTS | | | [...] DEPT OF | [address] | [place], [place] | | | CARDIOLOGY | [address] | [address] | | + + + + + [...] | + + + + + | [facility] | [address] [facility] | [place] [address] | | | SERVICESNATALEE | [address] [...] | | | LABORATORY | | | [place] | | | SERVICES, | | | [...] | + + + + + | [facility] | [address] | [place] [address] | | | SERVICES, CORE | PARK [...] | + + + + + | [facility] | [address] | [place] [address] | | | SERVICES, CORE | PARK [...] (H) | 70 - 99 mg/dL | [facility] - | | | GLUCOSE, | [...] [facility] | [address] | [place], [place] | | | [facility] | [address] | [address] | | | TESTS | | | [...] [facility] | [address] | [place], [place] | | | [facility] | [address] | [address] | | | TESTS | | | [...] | + + + + + | [facility] | [address] | [place] [address] | | | SERVICES, CORE | PARK [...] | | | LABORATORY | | | [place] | | | SERVICES, | | | [...] the MDRD equation recommended by the | [facility] | | National Kidney Disease Education [...] | + + + + + | [facility] | [address] [facility] | [place] [address] | | | SERVICES, [facility] [place] | [address] | | | + + + + + OPERATION RECORD (10/12/2017 8:50 PM PDT) + + | Procedure Note | + + | Pilar Cotto MD - 10/12/2017 8:50 PM PDT Date of Service: 10/12/2017 | | Attending Surgeon: Chaz Hernandez MD Staff Appraiser(s): Randell Dixon M.D., | | fellow. George [...] saline. We then | | placed a 19-Anguillan drain deep into the abscess cavity, tracking [...] 10/12/2017 19:50:06DT: 10/12/2017 20:50:54Job #: | | [id number] | + + X-RAY PORTABLE CHEST 1 [...] Note | + + | Service Account, [employer] Res In Interface - 10/13/2017 9:04 AM [...] [facility] | [address] | [place], [place] | | | [facility] | [address] | [address] | | | TESTS | | | [...] Note | + + | Service Account, [employer] Res In Interface - 10/12/2017 5:05 PM [...] [facility] | [address] | [place] [address] | | | SERVICES, CORE | PARK [...] | | | LABORATORY | | | [place] | | | SERVICES, | | | [...] | + + + + + | [facility] | [address] [facility] | [place] [address] | | | ELIN, NATALEE | [address] [...] [facility] | [address] | [place] [address] | | | NATALEE WORTHINGTON | V[address] [...] OF | [address] | [place], [place] | | | CARDIOLOGY | [address] | [address] | | + + + + + [...] | + + + + + | [facility] | [address] | [place], [place] | | | CARDIOLOGY | [address] | [address] | | + + + + + [...] | + + + + + | [facility] | [address] | [place] [address] | | | SERVICES, CORE | [address] | | | + + + + + MAGNESIUM, PLASMA (10/11/2017 12:15 AM PDT) + +-------+ + + + | Component | Value | Ref Range | Performed | Pathologist | | | | | At | Signature | + +-------+ + + + | MAGNESIUM,P | 1.7 | 1.6 - 2.6 mg/dL | [facility] | | | LASMA | | [...] [facility] | [address] | [place] [address] | | | SERVICES, NATALEE | VILMA [...] | | | LABORATORY | | | [place] | | | SERVICES, | | | [...] | + + + + + | [facility] | [address] | [place] [address] | | | SERVICES, NATALEE | [address] | | | + + + + + PROCEDURE NOTE (10/10/2017 10:00 PM PDT) + + + | Narrative | Performed At | + + + | Darius Link MD 10/12/2017 11:11 AM OPERATIVE REPORT | | | DATE OF OPERATION: 10/10/2017 ATTENDING SURGEON: 1. Dr. Hernandez | | | SENIOR ELECTRICAL CONTROLS ENGINEER: 1. Darius Link MD INDICATIONS: Dysphagia | | | and need for termite helper nutrition access PREOPERATIVE DIAGNOSIS: | | | 1.Dysphagia and need for termite helper nutrition access | | | POSTOPERATIVE DIAGNOSIS: [...] Dr. Hernandez Assistants: Darius Radford | Prabhakar Lnik At (time), prior to the beginning of [...] | | | [place] [id number] Chief Resident | | | Neurosurgery | [...] [facility] | [address] | [place] [address] | | | SERVICES, CORE | PARK [...] | | | LABORATORY | | | [place] | | | SERVICES, | | | [...] the MDRD equation recommended by the | [facility] | | National Kidney Disease Education [...] | + + + + + | [facility] | [address] | [place] [address] | | | NATALEE WORTHINGTON | PARK [...] | [facility] | [address] [facility] [facility] [facility] | [place] [address] | | | NATALEE WORTHINGTON | [address] | | | + + + + + OPERATION RECORD (10/10/2017 12:40 PM PDT) + + | Procedure Note | + + | Magdiel Stock MD - 10/10/2017 12:40 PM PDT Date of Service: 10/10/2017 Attending | | Surgeon: Magdiel Stock MD Staff Appraiser(s): Cecilia Jackson, | | . Preoperative Diagnoses: [...] This is a 67-year-old male. Please see [facility] for full details. He | | [...] | the note for this encounter.Sonal Nunez [facility] [id number] [facility] | | [place] [id number] Orina, MDFAH/MODLDD: | | 10/10/2017 11:52:15DT: 10/10/2017 12:40:41Job #: [id number] | | | | | |I was present for the critical portions of the procedure as described in the note for this encounter. | | | |Magdiel Stock MD | | | |Magdiel Stock MD | |[address] | |[address] | |[facility] | |[place] [address] | |[phone] | | | | | |Magdiel Stock MD | |JAYLAN/DUC | | | | | | /[id number] | + + X-RAY ABDOMEN 1 VIEW [...] + | [facility] | [address] | [place] [address] | | | [place] | | | [...] + | [facility] | [address] | [place] [address] | | | [place] | | | [...] Stain: No squamous epithelial cells | [facility] | | Many polymorphonuclear cells No organisms seen | | + + + + + + + + | Performing | Address | City/State/Zipcode | Phone Number | | Organization | | | | + + + + + | [facility] | [address] | [place] [address] | | | [facility] | [...] + | [facility] | [address] | [place] [address] | | | [place] | | | | + + + [...] + | [facility] | [address] | [place] [address] | | | [place] | | | [...] Stain: No squamous epithelial cells | [facility] | | Many polymorphonuclear cells No organisms seen | | + + + + + + + + | Performing | Address | City/State/Zipcode | Phone Number | | Organization | | | | + + + + + | [facility] | [address] | [place] [address] | | | [place] | | | [...] + | [facility] | [address] | [place] [address] | | | [place] | | | | + + + [...] Stain: No squamous epithelial cells | [facility] | | Few polymorphonuclear cells No organisms seen | | + + + + + + + + | Performing | Address | City/State/Zipcode | Phone Number | | Organization | | | | + + + + + | [facility] | [address] | [place] [address] | | | [facility] | | | | + + [...] | | cells No organisms seen | [place] | + + + + + + + + | Performing | Address | City/State/Zipcode | Phone Number | | Organization | | | | + + + + + | [facility] | [address] | [place] [address] | | | [place] | | | | + + + [...] + | [facility] | [address] | [place] [address] | | | [facility] | [...] + | [facility] | [address] | [place] [address] | | | [facility] | [...] + | [facility] | [address] | [place] [address] | | | [facility] | | | | + + [...] + | [facility] | [address] | [place] [address] | | | [place] | | | [...] Gram Stain: No squamous epithelial cells | [place] | | Moderate polymorphonuclear cells No organisms seen | | + + + + + + + + | Performing | Address | City/State/Zipcode | Phone Number | | Organization | | | | + + + + + | [facility] | [address] | [place] [address] | | | [place] | | | [...] + | [facility] | [address] | [place] [address] | | | [place] | | | | + + + [...] | | [facility] - | | | [facility] | + + + + + + + + | Performing | Address | City/State/Zipcode | Phone Number | | Organization | | | | + + + + + | [facility] | [address] | [place] [address] | | | [place] | | | [...] + | [facility] | [address] | [place] [address] | | | [place] | | | | + + + [...] + | [facility] | [address] | [place] [address] | | | [place] | | | [...] | + + + + + | [facility] | [address] | [place] [address] | | | SERVICES, CORE | [address] [...] [facility] | [address] | [place] [address] | | | NATALEE WORTHINGTON | [address] [...] | + + + + + | [facility] | [address] [facility] [facility] [facility] | [place] [address] | | | NATALEE WORTHINGTON | [address] [...] | | | LABORATORY | | | [place] | | | SERVICES, | | | [...] | + + + + + | [facility] | [address] | [place] [address] | | | SERVICES, CORE | VIL[address] [...] DEPT OF | [address] | [place], [place] | | | CARDIOLOGY | [address] | [address] | | + + + + + [...] + + + + | PRODUCT | [id number] | | [facility] | | | UNIT [...] + + + + | EXPIRATION | [id number] | | [facility] | | | DATE [...] + + + + | BLOOD | [id number] | | [facility] | | | PRODUCT [...] [facility] | [address] | [place] [address] | | | SERVICES, | [address] [...] + + + + | PRODUCT | [id number] | | [facility] | | | UNIT [...] + + + + | EXPIRATION | [id number] | | [facility] | | | DATE [...] + + + + | BLOOD | [id number] | | [facility] | | | PRODUCT [...] [facility] | [address] | [place] [address] | | | SERVICES, | [address] [...] | + + + + + | [facility] | [address] | [place] [address] | | | SERVICES, | [address] [...] [facility] | [address] | [place] [address] | | | SERVICES, | [address] [...] | + + + + + | [facility] | [address] | [place] [address] | | | SERVICES, | [address] [...] | + + + + + | [facility] | [address] | [place] [address] | | | SERVICES, CORE | PARK [...] DEPT OF | [address] | [place], [place] | | | CARDIOLOGY | [address] | [address] | | + + + + + [...] Note | + + | Service Account, [employer] Res In Interface - 10/08/2017 10:47 AM [...] [facility] | [address] | [place], [place] | | | [facility] | [address] | [address] | | | TESTS | | | [...] [facility] | [address] | [place] [address] | | | NATALEE WORTHINGTON | [address] [...] | + + + + + | [facility] | [address] | [place] [address] | | | NATALEE WORTHINGTON | [address] [...] | | | LABORATORY | | | [place] | | | SERVICES, | | | [...] | + + + + + | [facility] | [address] | [place] [address] | | | SERVICES, CORE | [address] [...] (H) | 70 - 99 mg/dL | [facility] - | | | GLUCOSE, | [...] [facility] | [address] | [place], [place] | | | [facility] | [facility] | [address] | | | TESTS | | | [...] [facility] | [address] | [place], [place] | | | [facility] | [facility] | [address] | | | TESTS | | | [...] (H) | 70 - 99 mg/dL | [facility] - | | | GLUCOSE, | [...] [facility] | [address] | [place], [place] | | | [facility] | [address] | [address] | | | TESTS | | | [...] [facility] | [address] | [place], [place] | | | GL[facility]IA GENAO OF [facility] | [facility] | [address] | | | TESTS | | | [...] - [facility] | [address] | [place], [place] | | | [facility] | [facility] | [address] | | | TESTS | | | [...] | + + + + + | [facility] | [address] | [place] [address] | | | SERVICES, CORE | [address] [...] [facility] | [address] | [place] [address] | | | SERVICES, CORE | [address] [...] | | | LABORATORY | | | [place] | | | SERVICES, | | | [...] | + + + + + | [facility] | [address] | [place] [address] | | | SERVICES, NATALEE | [address] [...] 99 | 70 - 99 mg/dL | [facility] - | | | GLUCOSE, | [...] [facility] | [address] | [place], [place] | | | [facility] | [facility] | [address] | | | TESTS | | | [...] [facility] | [address] | [place], [place] | | | [facility] | [address] | [address] | | | TESTS | | | [...] + + | [facility] | [address] | [place], [place] | | | CARDIOLOGY | [address] | [address] | | + + + + + [...] [facility] | [address] | [place], [place] | | | [facility] | [address] | [address] | | | TESTS | | | [...] | + + + + + | [facility] | [address] | [place] [address] | | | SERVICES, CORE | PARK [...] [facility] | [address] | [place] [address] | | | SERVICES, CORE | [address] [...] | | | LABORATORY | | | [place] | | | SERVICES, | | | [...] the MDRD equation recommended by the | [facility] | | National Kidney Disease Education [...] | + + + + + | [facility] | [address] | [place] [address] | | | SERVICES, CORE | [address] [...] (H) | 70 - 99 mg/dL | [facility] - | | | GLUCOSE, | [...] [facility] | [address] | [place], [place] | | | [facility] | [facility] | [address] | | | TESTS | | | [...] [facility] | [address] | [place], [place] | | | [facility] | [address] | [address] | | | TESTS | | | [...] [facility] | [address] | [place], [place] | | | [facility] | [facility] | [address] | | | TESTS | | | [...] (H) | 70 - 99 mg/dL | [facility] - | | | GLUCOSE, | [...] [facility] | [address] | [place], [place] | | | [facility] | [address] | [address] | | | TESTS | | | [...] DEPT OF | [address] | [place], [place] | | | CARDIOLOGY | [address] | [address] | | + + + + + [...] [facility] | [address] | [place] [address] | | | SERVICES, CORE | [address]ARK [...] [facility] | [address] | [place] [address] | | | SERVICES, CORE | [address] [...] | | | LABORATORY | | | [place] | | | SERVICES, | | | [...] the MDRD equation recommended by the | [facility] | | National Kidney Disease Education [...] | + + + + + | [facility] | [address] | [place] [address] | | | NATALEE WORTHINGTON [...] [facility] | [address] | [place] | | | [facility] | [facility] | [address] | | | TESTS | | | [...] [facility] | [address] | [place], [place] | | | [facility] | [address] | [address] | | | TESTS | | | [...] [facility] | [address] | [place] | | | [facility] | [address] | [address] | | | TESTS | | | [...] [facility] | [address] | [place] | | | [facility] | [address] | [address] | | | TESTS | | | [...] [facility] | [address] | [place], [place] | | | [facility] | [address] | [address] | | | TESTS | | | [...] [facility] | [address] | [place] [address] | | | NATALEE WORTHINGTON | [address] [...] | + + + + + | [facility] | [address] | [place] [address] | | | NATALEE WORTHINGTON | [address] [...] | | | LABORATORY | | | [place]ICAN | | | SERVICES, | | | [...] | + + + + + | [facility] | [address] | [place] [address] | | | SERVICES, CORE | VILMA [...] [facility] | [address] | [place], [place] | | | [facility] | [address] | [address] | | | TESTS | | | [...] [facility] | [address] | [place], [place] | | | [facility] | [facility] | [address] | | | TESTS | | | [...] | + + + + + | [facility] | [address] | [place] [address] | | | SERVICES, CORE | [address]ARK [...] by | | | | | | [address] | | | | | | Rogelio Pickard, [facility] | | | | | | [id number] | | | | | | [phone].[employer]. | | | | | | Gui [...] [facility] | [address] | [place], [place] | | | [facility] | | [address] | | + + + + + [...] [facility] | [address] | [place] [address] | | | SERVICES, CORE | [address] [...] [facility] | [address] | [place] [address] | | | NATALEE WORTHINGTON | [address] [...] modified from | [facility] | | original oil well drilling manager's approved specifications. The performance | LABORATORY | | of the BREAD ICER HIV Combo test, with or without confirmation, [...] | + + + + + | [facility] | [address] | [place] [address] | | | SPECIAL ELIN | [address] [...] (H) | 70 - 99 mg/dL | [facility] - | | | GLUCOSE, | [...] [facility] | [address] | [place], [place] | | | [facility] | [address] | [address] | | | TESTS | | | [...] [facility] | [address] | [place], [place] | | | [facility] | [address] | [address] | | | TESTS | | | [...] | + + + + + | [facility] | [address] | [place] [address] | | | SERVICES, CORE | [address] | | | + + + + + MAGNESIUM, PLASMA (10/03/2017 6:03 AM PDT) + +-------+ + + + | Component | Value | Ref Range | Performed | Pathologist | | | | | At | Signature | + +-------+ + + + | MAGNESIUM,P | 2.0 | 1.6 - 2.6 mg/dL | [facility] | | | L[facility]MA | | | [...] [facility] | [address] | [place] [address] | | | SERVICES, NATALEE | [address] [...] | | | LABORATORY | | | [place]ICAN | | | SERVICES, | | | [...] | + + + + + | [facility] | [address] [facility] | [place] [address] | | | SERVICES, NATALEE | VILMA [...] [facility] | [address] | [place], [place] | | | [facility] | [address] | [address] | | | TESTS | | | [...] [facility] | [address] | [place], [place] | | | [facility] | [address] | [address] | | | TESTS | | | [...] [facility] | [address] [facility] | [place], [place] | | | CARDIOLOGY | [address] | [address] | | + + + + + [...] [facility] | [address] | [place] | | | [facility] | [address] | [address] | | | TESTS | | | [...] - [facility]EL[facility] | [address] | [place], [place] | | | [facility] | [address] | [address] | | | TESTS | | | [...] | + + + + + | [facility] | [address] | [place] [address] | | | SERVICES, CORE | PARK [...] [facility] | [address] | [place] [address] | | | SERVICES, CORE | [address]ARK [...] | | | LABORATORY | | | [place] | | | SERVICES, | | | [...] the MDRD equation recommended by the | [facility] | | National Kidney Disease Education [...] | + + + + + | [facility] | [address] | [place] [address] | | | SERVICES, CORE | VILMA [...] (H) | 70 - 99 mg/dL | [facility] - | | | GLUCOSE, | [...] [facility] | [address] | [place], [place] | | | [facility] | [facility] | [address] | | | TESTS | | | [...] [facility] | [address] | [place], [place] | | | [facility] | [address] | [address] | | | TESTS | | | [...] + + + | [facility] | [address] | [place], [place] | | | [facility] | [address] | [address] | | | TESTS | | | [...] | | + +---------+ + + | [facility] | | | | | [...] - [facility] | [address] | [place], [place] | | | [facility] | [address] | [address] | | | TESTS | | | [...] | + + + + + | [facility] | [address] | [place] [address] | | | ELIN, NATALEE | VILMA [...] | + + + + + | [facility] | [address] [facility] | [place] [address] | | | SERVICES, CORE | VILMA [...] | | | LABORATORY | | | [place]ICAN | | | SERVICES, | | | [...] | + + + + + | [facility] | [address] | [place] [address] | | | SERVICES, CORE | VILMA [...] (H) | 70 - 99 mg/dL | [facility] - | | | GLUCOSE, | [...] | [facility] | [address] | [place], [place] | | | [facility] | [address] | [address] | | | TESTS | | | [...] [facility] | [address] | [place] | | | [facility] | [address] | [address] | | | TESTS | | | [...] DEPT OF | [address] | [place], [place] | | | CARDIOLOGY | [address] | [address] | | + + + + + [...] [facility] | [address] | [place] | | | [facility] | [address] | [address] | | | TESTS | | | [...] [facility] | [address] | [place], [place] | | | JOHN GENAO | [facility] | [address] | | | TESTS | | | [...] | + + + + + | [facility] | [address] | [place] [address] | | | SERVICES, CORE | PARK [...] [facility] | [address] | [place] [address] | | | SERVICES, NATALEE | VILMA [...] | | | LABORATORY | | | [place]ICAN | | | SERVICES, | | | [...] | + + + + + | [facility] | [address] | [place] [address] | | | SERVICES, CORE | VILMA [...] [facility] | [address] | [place], [place] | | | [facility] | [facility] | [address] | | | TESTS | | | [...] [facility] | [address] | [place], [place] | | | [facility] | [address] | [address] | | | TESTS | | | [...] [facility] | [address] | [place], [place] | | | JOHN GENAO | [facility] | [address] | | | TESTS | | | [...] DEPT OF | [address] | [place], [place] | | | CARDIOLOGY | [address] | [address] | | + + + + + [...] [facility] | [address] | [place], [place] | | | [facility] | [address] | [address] | | | TESTS | | | [...] [facility] | [address] | [place] [address] | | | SERVICES, CORE | PARK [...] | | | LABORATORY | | | [place] | | | SERVICES, | | | [...] the MDRD equation recommended by the | [facility] | | National Kidney Disease Education [...] [facility] | [address] | [place] [address] | | | SERVICES, CORE | PARK [...] | + + + + + | [facility] | [address] | [place] [address] | | | SERVICES, CORE | VILMA [...] + + | Performing | Address | City/State/[facility] | Phone Number | | Organization | | | | + + + + + | [facility] | [address] | [place], [place] | | | GLORIA GENAO OF [facility] | [address] | [address] | | | TESTS | | | [...] RAP[facility] | [address] | [place], [place] | | | GLORIA GENAO OF [facility] | [facility] | [address] | | | TESTS | | | [...] (H) | 70 - 99 mg/dL | [facility] - | | | GLUCOSE, | [...] [facility] | [address] | [place], [place] | | | [facility] | [address] | [address] | | | TESTS | | | [...] DEPT OF | [address] | [place], [place] | | | CARDIOLOGY | [address] | [address] | | + + + + + [...] [facility] | [address] | [place], [place] | | | [facility] | [address] | [address] | | | TESTS | | | [...] | + + + + + | [facility] | [address] | [place] [address] | | | SERVICES, CORE | VILMA [...] | + + + + + | [facility] | [address] | [place] [address] | | | SERVICES, CORE | PARK [...] | | | LABORATORY | | | [place] | | | SERVICES, | | | [...] the MDRD equation recommended by the | [facility] | | National Kidney Disease Education [...] | + + + + + | [facility] | [address] | [place] [address] | | | SERVICES, CORE | VILMA [...] (H) | 70 - 99 mg/dL | [facility] - | | | GLUCOSE, | [...] P[facility]ETT | [address] | [place], [place] | | | GLORIA GENAO OF [facility] | [address] | [address] | | | TESTS | | | [...] [facility] | [address] | [place], [place] | | | GLORIA GENAO OF CARE | [address] | [address] | | | TESTS | | | [...] P[facility] | [address] | [place], [place] | | | GLORIA GENAO OF CARE | [address] | [address] | | | TESTS | | | [...] [facility] | [address] | [place], [place] | | | [place], POINT OF CARE | [address] | [address] | | | TESTS | | | [...] | + + + + + | [facility] | [address] | [place] [address] | | | SERVICES, NATALEE | PARK [...] [facility] | [address] | [place] [address] | | | SERVICES, CORE | PARK [...] | | | LABORATORY | | | [place]ICAN | | | SERVICES, | | | [...] the MDRD equation recommended by the | [facility] | | National Kidney Disease Education Program. [...] | + + + + + | [facility] | [address] | [place] [address] | | | NATALEE WORTHINGTON | VILMA [...] [facility] | [address] | [place], [place] | | | [facility] | [address] | [address] | | | TESTS | | | [...] [facility] | [address] | [place], [place] | | | GLORIA GENAO OF CARE | [address] | [address] | | | TESTS | | | [...] DEPT OF | [address] | [place], [place] | | | CARDIOLOGY | [facility] | [address] | | + + + + + CAPILLARY BLOOD GLUCOSE (NO CHG), POC (09/26/2017 12:37 PM PDT) + +-------+ + + + | Component | Value | Ref Range | Performed | Pathologist | | | | | At | Signature | + +-------+ + + + | BLOOD | 88 | 70 - 99 mg/dL | [facility] - | | | GLUCOSE, | [...] [facility] | [address] | [place], [place] | | | [facility]ARE | [address] | [address] | | | TESTS | | | [...] [facility] | [address] | [place], [place] | | | GLORIA GENAO OF GM | [facility] | [address] | | | TESTS | | | [...] [facility] | [address] | [place], [place] | | | [facility] CARE | [facility] | [address] | | | TESTS | | | [...] | + + + + + | [facility] | [address] | [place] [address] | | | SERVICES, CORE | VILMA [...] [facility] | [address] | [place] [address] | | | SERVICES, CORE | PARK [...] | | | LABORATORY | | | J[place]ICAN | | | SERVICES, | | | [...] | + + + + + | [facility] | [address] | [place] [address] | | | SERVICES, NATALEE | VILMA [...] (H) | 70 - 99 mg/dL | [facility] - | | | GLUCOSE, | [...] [facility] | [address] | [place], [place] | | | GLORIA GENAO OF [facility] | [address] | [address] | | | TESTS | | | [...] [facility] | [address] | [place] [address] | | | SERVICES, CORE | PARK [...] [facility] | [address] | [place] [address] | | | SERVICES, CORE | PARK [...] | | | LABORATORY | | | J[place]ICAN | | | SERVICES, | | | [...] the MDRD equation recommended by the | [facility] | | National Kidney Disease Education [...] | + + + + + | [facility] | [address] [facility] [facility] [facility] | [place] [address] | | | NATALEE WORTHINGTON | VILMA [...] DEPT OF | [address] | [place], [place] | | | CARDIOLOGY | [address] | [address] | | + + + + + [...] Note | + + | Service Account, [employer] In Interface - 09/24/2017 4:09 PM PDT [...] | + + + + + | [facility] | [address] [facility] [facility] [facility] | [place] [address] | | | SERVICES, [facility] | [address] | [...] | | | LABORATORY | | | [place]ICAN | | | SERVICES, | | | [...] the MDRD equation recommended by the | [facility] | | National Kidney Disease Education [...] [facility] | [address] | [place] [address] | | | SERVICES, CORE | PARK [...] | + + + + + | [facility] | [address] | [place] [address] | | | SERVICES, CORE | PARK [...] | + + + + + | [facility] | [address] | [place] [address] | | | NATALEE WORTHINGTON | VILMA [...] | + + + + + | [facility] | [address] [facility] [facility] | [place] [address] | | | NATALEE WORTHINGTON | VILMA [...] | | | LABORATORY | | | J[place]ICAN | | | SERVICES, | | | [...] | + + + + + | [facility] | [address] | [place] [address] | | | SERVICES, CORE | VILMA [...] [facility] | [address] | [place], [place] | | | GLORIA GENAO OF CARE | [address] | [address] | | | TESTS | | | [...] [facility] | [address] | [place], [place] | | | [facility] [place] [facility] | [address] | [address] | | | TESTS | | | [...] | + + + + + | [facility] | [address] | [place] [address] | | | SERVICES, CORE | VILMA [...] + + | [facility] | [address] | [place], [place] | | | CARDIOLOGY | [address] | [address] | | + + + + + [...] | + + + + + | [facility] | [address] | [place] [address] | | | SERVICES, CORE | [address] | | | + + + + + MAGNESIUM, PLASMA (09/22/2017 5:48 AM PDT) + +-------+ + + + | Component | Value | Ref Range | Performed | Pathologist | | | | | At | Signature | + +-------+ + + + | MAGNESIUM,P | 1.9 | 1.6 - 2.6 mg/dL | [facility] | | | LASMA | | [...] [facility] | [address] | [place] [address] | | | SERVICES, CORE | VILMA [...] | | | LABORATORY | | | J[place]ICAN | | | SERVICES, | | | [...] | + + + + + | [facility] | [address] | [place] [address] | | | ELIN, NATALEE | VILMA [...] [facility] | [address] | [place], [place] | | | [facility] | [address] | [address] | | | TESTS | | | [...] | + + + + + | [facility] | [address] | [place] [address] | | | NATALEE WORTHINGTON | [...] | + + + + + | [facility] | [address] | [place] [address] | | | SERVICES, CORE | VILMA [...] | | | LABORATORY | | | J[place]ICAN | | | SERVICES, | | | [...] | + + + + + | [facility] | [address] | [place] [address] | | | SERVICES, CORE | VILMA [...] Note | + + | Service Account, [employer] In Interface - 09/20/2017 7:50 PM [...] | | + +---------+ + + | [facility] | | | | | [...] Note | + + | Service Account, [employer] In Interface - 09/20/2017 5:17 PM [...] GE[facility] OF | [address] | [place], [place] | | | CARDIOLOGY | [address] | [address] | | + + + + + [...] | + + + + + | [facility] | [address] | [place] [address] | | | SERVICES, CORE | PARK [...] [facility] | [address] | [place] [address] | | | SERVICES, CORE | PARK [...] | | | LABORATORY | | | J[place]ICAN | | | SERVICES, | | | [...] | + + + + + | [facility] | [address] [facility] | [place] [address] | | | NATALEE WORTHINGTON | VILMA [...] | + + + + + | [facility] | [address] | [place] [address] | | | SERVICES, CORE | PARK [...] + | [facility] | [address] | [place] [address] | | | SERVICES, CORE | VILMA [...] | | | LABORATORY | | | J[place]ICAN | | | SERVICES, | | | [...] | + + + + + | [facility] | [address] | [place] [address] | | | NATALEE WORTHINGTON | VILMA [...] | + + + + + | [facility] | [address] | [place] [address] | | | SERVICES, CORE | PARK [...] [facility] | [address] | [place] [address] | | | NATALEE WORTHINGTON | PARK [...] | | | LABORATORY | | | J[place]ICAN | | | SERVICES, | | | [...] | + + + + + | [facility] | [address] | [place] [address] | | | SERVICES, NATALEE | VILMA [...] Note | + + | Service Account, [employer] In Interface - 09/17/2017 11:53 AM PDT [...] | + + + + + | [facility] | [address] | [place] [address] | | | SERVICES, CORE | VILMA [...] | + + + + + | [facility] | [address] [facility] | [place] [address] | | | SERVICES, CORE | PARK [...] | | | LABORATORY | | | [place]ICAN | | | SERVICES, | | | [...] the MDRD equation recommended by the | [facility] | | National Kidney Disease Education [...] | + + + + + | [facility] | [address] | [place] [address] | | | SERVICES, CORE | [address] | | | + + + + + X-RAY PORTABLE CHEST PICC LINE CHECK (09/16/2017 1:11 PM PDT) + + | Specimen | + + | | + + + + + | Narrative | Performed At | + + + | EXAM: [place] CHEST PICC LINE CHECK HISTORY: PICC placement | [facility] | | COMPARISON: Earlier today FINDINGS: [...] Note | + + | Service Account, [employer] In Interface - 09/16/2017 1:34 PM [...] | | + +---------+ + + | [facility] | | | | | [...] | + + + + + | [facility] | [address] | [place] [address] | | | SERVICES, CORE | PARK [...] [facility] | [address] | [place] [address] | | | SERVICES, CORE | PARK [...] | | | LABORATORY | | | J[place]ICAN | | | SERVICES, | | | [...] the MDRD equation recommended by the | [facility] | | National Kidney Disease Education [...] | + + + + + | [facility] | [address] | [place] [address] | | | SERVICES, [facility] | [address] | [...] Indications:TPN Procedure | | | location: Unit:[facility] Room: 12 Providers: Attending name: | | [...] | pause verifies correct patient, procedure, equipment, ict support technicians | | | and site/side marked as [...] | area Basilic vein. Catheter lot number: [id number] with a length of 55 | | [...] [facility] | [address] | [place] [address] | | | SERVICES, CORE | PARK [...] [facility] | [address] | [place] [address] | | | SERVICES, CORE | PARK [...] | | | LABORATORY | | | J[place]ICAN | | | SERVICES, | | | [...] the MDRD equation recommended by the | [facility] | | National Kidney Disease Education [...] | + + + + + | [facility] | [address] | [place] [address] | | | SERVICES, CORE | VILMA [...] | + + + + + | [facility] | [address] [facility] | [place] [address] | | | NATALEE WORTHINGTON | VILMA [...] | + + + + + | [facility] | [address] | [place] [address] | | | SERVICES, CORE | PARK [...] | | | LABORATORY | | | J[place]ICAN | | | SERVICES, | | | [...] [facility] | [address] | [place] [address] | | | SERVICES, CORE [...] | + + + + + | [facility] | [address] | [place] [address] | | | NATALEE WORTHINGTON | VILMA [...] | + + + + + | [facility] | [address] | [place] [address] | | | SERVICES, CORE | VILMA [...] | | | LABORATORY | | | J[place]ICAN | | | SERVICES, | | | [...] | + + + + + | [facility] | [address] | [place] [address] | | | SERVICES, CORE | VILMA [...] Note | + + | Service Account, [employer] In Interface - 09/12/2017 9:13 AM [...] | + + + + + | [facility] | [address] | [place] [address] | | | SERVICES, CORE | [address] | | | + + + + + MAGNESIUM, PLASMA (09/12/2017 6:33 AM PDT) + +-------+ + + + | Component | Value | Ref Range | Performed | Pathologist | | | | | At | Signature | + +-------+ + + + | MAGNESIUM,P | 2.3 | 1.6 - 2.6 mg/dL | [facility] | | | LISA | | | [...] [facility] | [address] | [place] [address] | | | SERVICES, NATALEE | VILMA [...] | | | LABORATORY | | | JAMAICAN | | | SERVICES, | | | [...] | + + + + + | [facility] | [address] | [place] [address] | | | SERVICES, CORE | VILMA [...] | + + + + + | [facility] | [address] | [place] [address] | | | NATALEE WORTHINGTON | PARK [...] | + + + + + | [facility] | [address] | [place] [address] | | | NATALEE WORTHINGTON | VILMA [...] | | | LABORATORY | | | JAMAICAN | | | SERVICES, | | | [...] | + + + + + | [facility] | [address] [facility] [facility] | [place] [address] | | | SERVICES, CORE | PARK [...] | + + + + + | [facility] | [address] | [place] [address] | | | SERVICES, [facility] | [address] | | | + + + + + X-RAY ABD LTD FEEDING TUBE EVAL (09/10/2017 12:44 PM PDT) + + | Specimen | + + | | + + + + + | Narrative | Performed At | + + + | INDICATION: DHT placement TECHNIQUE: Upright portable view of | [facility] | | the upper abdomen. Comparison: 09/09/2017 [...] Note | + + | Service Account, [employer] In Interface - 09/10/2017 2:31 PM [...] | + + + + + | [facility] | [address] | [place] [address] | | | SERVICES, CORE | VILMA [...] [facility] | [address] | [place] [address] | | | SERVICES, CORE | PARK [...] [facility] | [address] | [place] [address] | | | SERVICES, CORE | PARK [...] [facility] | [address] | [place] [address] | | | SERVICES, CORE | PARK [...] | | | LABORATORY | | | JAMAICAN | | | SERVICES, | | | [...] | + + + + + | [facility] | [address] [facility] [facility] | [place] [address] | | | ELIN, NATALEE | PARK [...] DEPT OF | [address] | [place], [place] | | | CARDIOLOGY | [address] | [address] | | + + + + + [...] Note | + + | Service Account, [employer] In Interface - 09/10/2017 11:11 AM PDT [...] [facility] | [address] | [place], [place] | | | GLORIA GENAO OF GM | [address] | [address] | | | TESTS | | | [...] [facility] | [address] | [place] [address] | | | SERVICES, CORE | PARK [...] [facility] | [address] | [place] [address] | | | NATALEE WORTHINGTON | [address] [...] | | | LABORATORY | | | J[place]ICAN | | | SERVICES, | | | [...] | + + + + + | [facility] | [address] [facility] | [place] [address] | | | NATALEE WORTHINGTON | VILMA [...] [facility] | [address] | [place] [address] | | | SERVICES, CORE | PARK [...] | | | LABORATORY | | | J[place]ICAN | | | SERVICES, | | | [...] | + + + + + | [facility] | [address] | [place] [address] | | | ELIN, CORE | VILMA [...] [facility] | [address] | [place] [address] | | | SERVICES, CORE | PARK [...] | + + + + + | [facility] | [address] | [place] [address] | | | SERVICES, CORE | VILMA [...] DEPT OF | [address] | [place], [place] | | | CARDIOLOGY | [address] | [address] | | + + + + + [...] | + + + + + | [facility] | [address] | [place] [address] | | | SERVICES, NATALEE | VILMA [...] | | | LABORATORY | | | JAMAICAN | | | SERVICES, | | | [...] | + + + + + | [facility] | [address] | [place] [address] | | | SERVICES, CORE | VILMA [...] | + + + + + | [facility] | [address] [facility] [facility] | [place] [address] | | | SERVICES, [facility] | [address] | [...] Note | + + | Service Account, [employer] In Interface - 09/07/2017 10:46 AM [...] DEPT OF | [address] | [place], [place] | | | CARDIOLOGY | [address] | [address] | | + + + + + [...] | | | attempt. Midline lot number [id number]; there was positive blood | | | [...] | | | LABORATORY | | | JAMAICAN | | | SERVICES, | | | [...] | + + + + + | [facility] | [address] | [place] [address] | | | SERVICES, CORE | PARK [...] [facility] | [address] | [place] [address] | | | NATALEE WORTHINGTON | [address]ILMA [...] | + + + + + | [facility] | [address] [facility] [facility] | [place] [address] | | | SERVICES, CORE | VIL[address] [...] [facility] | [address] | [place] [address] | | | SERVICES, CORE | PARK [...] | | | LABORATORY | | | J[place]ICAN | | | SERVICES, | | | [...] [facility] | [address] | [place] [address] | | | SERVICES, CORE | [address] [...] | | | LABORATORY | | | J[place]ICAN | | | SERVICES, | | | [...] + + | Performing | Address | City/State/[facility] Centercode | Phone Number | | Organization | | | | + + + + + | [facility] | [address] | [place] [address] | | | NATALEE WORTHINGTON | [address] [...] tomorrow morning. CB Henson Pager / ID: [phone] | | + + + CULTURE, SPUTUM [...] seen | AIRPORT - | | | [place] | + + + + + + + + | Performing | Address | City/State/Zipcode | Phone Number | | Organization | | | | + + + + + | [facility] - | [address] | [place] [address] | | | [place] | | | | + + + [...] | + + + + + | [facility] | [address] | [place] [address] | | | SERVICES, CORE | VIL[address] [...] | [facility] | | | GRAVITY | [place] performed by | | LABORATORY | | [...] | + + + + + | [facility] | [address] | [place] [address] | | | SERVICES, NATALEE | VILMA [...] [facility] | [address] | [place] [address] | | | SERVICES, CORE | PARK [...] | + + + + + | [facility] | [address] | [place] [address] | | | SERVICES, CORE | VILMA [...] + + | [facility] | [address] | [place], [place] | | | CARDIOLOGY | [address] | [address] | | + + + + + [...] Note | + + | Service Account, [employer] In Interface - 09/04/2017 9:49 AM PDT [...] | | + +---------+ + + | [facility] | | | | | [...] [facility] | [address] | [place] [address] | | | SERVICES, CORE | PARK [...] [facility] | [address] | [place] [address] | | | SERVICES, CORE | PARK [...] | | | LABORATORY | | | J[place]ICAN | | | SERVICES, | | | [...] | + + + + + | [facility] | [address] [facility] | [place] [address] | | | ELIN, CORE | [address] [...] | + + + + + | [facility] | [address] | [place] [address] | | | NATALEE WORTHINGTON | PARK [...] [facility] | [address] | [place], [place] | | | GLORIA GENAO OF CARE | [facility] | [address] | | | TESTS | | | [...] [facility] | [address] | [place], [place] | | | GLORIA GENAO OF [employer] | [facility] | [address] | | | TESTS | | | [...] [facility] | [address] | [place], [place] | | | [facility] | [address] | [address] | | | TESTS | | | [...] [facility] | [address] | [place], [place] | | | H[place], POINT OF CARE | [address] | [address] | | | TESTS | | | [...] Note | + + | Service Account, [employer] In Interface - 09/03/2017 10:27 AM [...] + | [facility] - | [address] | [place] [address] | | | [facility] | [...] | + + + + + | [facility] | [address] | [place] [address] | | | SERVICES, CORE | [address] [...] Note | + + | Service Account, [employer] In Interface - 09/03/2017 9:54 AM [...] + | [facility] - | [address] | [place] [address] | | | [place] | | | [...] | + + + + + | [facility] | [address] | [place] [address] | | | SERVICES, CORE | [address] [...] | + + + + + | [facility] | [address] [facility] | [place] [address] | | | SERVICES, CORE | [address] [...] | | | LABORATORY | | | J[place]ICAN | | | SERVICES, | | | [...] | + + + + + | [facility] | [address] | [place] [address] | | | ELIN, NATALEE | [address] | | | + + + + + MAGNESIUM, PLASMA (09/02/2017 11:36 PM PDT) + +-------+ + + + | Component | Value | Ref Range | Performed | Pathologist | | | | | At | Signature | + +-------+ + + + | MAGNESIUM,P | 1.8 | 1.6 - 2.6 mg/dL | [facility] | | | LASMA | | | [...] [facility] | [address] | [place] [id number] | | | SERVICES, [facility] | [address] | | | + + + + + OPERATION RECORD (09/02/2017 6:53 PM PDT) + + | Procedure Note | + + | Fidelina Shields MD - 09/02/2017 6:53 PM PDT Date of Service: 09/02/2017 | | Attending Surgeon: Fidelina Shields MD Staff Appraiser(s): | | Ajay Butts MD, resident. Preoperative [...] 09/02/2017 18:15:29DT: 09/02/2017 18:53:52Job #: | | [id number] to federal Medicare and Medicaid regulations I was present for | | the entire procedure.Fidelina Shields MDAssistant ProfessorDepartment of SurgeryOffice: | | [phone]: [id number] has been electronically signed by Fidelina Shields MD, | | 09/03/2017 at 9:11 AM. | | | | | |Fidelina Shields MD | |Network Systems Engineer | |Department of Surgery | |Office: [phone] | |Pager: [phone] | | | |This has been electronically [...] [facility] | [address] | [place] [address] | | | SERVICES, CORE | [address]ARK [...] | + + + + + | [facility] | [address] | [place] [address] | | | SERVICES, CORE | VIM[address] [...] + | [facility] - | [address] | [place] [address] | | | [place] | | | [...] | + + + + + | [facility] | [address] | [place] [address] | | | SERVICES, NATALEE | VILMA [...] | | | LABORATORY | | | J[place]ICAN | | | SERVICES, | | | [...] | + + + + + | [facility] | [address] | [place] [address] | | | SERVICES, CORE | [address] [...] Note | + + | Service Account, [employer] In Interface - 09/02/2017 4:25 PM [...] Bedrest Initial surgical | | | contact: [facility] Butts, Surgery [id number] Pursuant | | | to federal Medicare and Medicaid regulations I was present for the | | | entire procedure. Fidelina Shields MD Network Systems Engineer | | | Department of Surgery Office: [phone] Pager: [phone] This has | | | been electronically [...] [facility] | [address] | [place] [address] | | | SERVICES, CORE | VILMA [...] [facility] | [address] | [place] [address] | | | SERVICES, NATALEE | [address] | | | + + + + + OPERATION RECORD (09/02/2017 6:51 AM PDT) + ---+ | Procedure Note | + ---+ | Fidelina Shields MD - 09/02/2017 6:51 AM PDT Date of Service: 09/01/2017 | | Attending Surgeon: Fidelina Shields MD Staff Appraiser(s): Haim Peralta MD. | | Ajay Butts [...] 09/02/2017 06:17:53DT: 09/02/2017 | | 06:51:37Job #: [id number] to federal Medicare and Medicaid regulations I | | was present for the entire procedure.Fidelina Tenorio ProfessorDepartment of | | SurgeryOffice: [phone]: [id number] has been electronically signed by Fidelina Whitman | | MD Cornelius, 09/02/2017 at 10:40 AM. | | | | | |Pursuant to federal Medicare and Medicaid regulations I was present for the entire procedur e. | | | | | | | |Fidelina Shields MD | |Network Systems Engineer | |Department of Surgery | |Office: [phone] | |Pager: [phone] | | | |This has been electronically [...] [facility] | [address] | [place] [address] | | | SERVICES, CORE | PARK [...] | + + + + + | [facility] | [address] | [place] [address] | | | SERVICES, CORE | VILMA [...] + + + + | PRODUCT | [id number] | | [facility] | | | UNIT [...] + + + + | EXPIRATION | [id number] | | [facility] | | | DATE [...] + + + + | BLOOD | [id number] | | [facility] | | | PRODUCT [...] | + + + + + | [facility] | [address] | [place] [address] | | | SERVICES, | [address] [...] | + + + + + | [facility] | [address] | [place] [address] | | | SERVICES, CORE | VILMA [...] | | | LABORATORY | | | [place] | | | SERVICES, | | | [...] | + + + + + | [facility] | [address] | [place] [address] | | | SERVICES, CORE | PARK [...] | [facility] | [address] [facility] | [place] [address] | | | SERVICES, NATALEE | [address] [...] | | | | INFORMATION: | | [place] | | | | [employer] | [...] (http://www.cdc.gov/mmwr | | | | | | /preview/mmwrhtml/[email or web address] | | | | | | [email or web address]), [...] [facility] - | | | | by [place], | | AIRPORT - | | | | | | [place] | | | | [address] | | | | | | [address] [facility] [place] | | | | | | [address] | | | | | | | | | | | | [email or web address] ([email or web address]), Gui | | | | | | [...] | + + + + + | [facility] - | [address] | [place] [address] | | | [place] | | | | + + + [...] [facility] | [address] | [place] [address] | | | SERVICES, CORE | PARK [...] | + + + + + | [facility] | [address] | [place] [address] | | | SERVICES, CORE | VILMA [...] Note | + + | Service Account, [employer] In Interface - 09/02/2017 8:55 AM PDT [...] Note | + + | Service Account, [employer] In Interface - 09/02/2017 10:34 AM [...] [facility] | [address] | [place] [address] | | | SERVICES, CORE | PARK [...] [facility] | [address] | [place] [address] | | | SERVICES, CORE | PARK [...] + + + + | PRODUCT | [id number] | | [facility] | | | UNIT [...] + + + + | EXPIRATION | [id number] | | [facility] | | | DATE [...] + + + + | BLOOD | [id number] | | [facility] | | | PRODUCT [...] [facility] | [address] | [place] [address] | | | SERVICES, | [address] [...] | + + + + + | [facility] | [address] | [place] [address] | | | SERVICES, CORE | PARK [...] [facility] | [address] | [place] [address] | | | SERVICES, CORE | VILMA [...] | + + + + + | [facility] | [address] | [place] [address] | | | SERVICES, CORE | VILMA [...] | | | LABORATORY | | | [place] | | | SERVICES, | | | [...] | + + + + + | [facility] | [address] | [place] [address] | | | SERVICES, NATALEE | VILMA [...] | + + + + + | [facility] | [address] | [place] [address] | | | NATALEE WORTHINGTON | VILMA [...] | + + + + + | [facility] | [address] | [place] [address] | | | SERVICES, NATALEE | [...] micropuncture access set was exchanged for a Open English wire. Under | | | fluoroscopic guidance, a 5 Fr flush catheter was used to evaluate the | | | distal abdominal aorta and pelvic vasculature. A wire and catheter | | | were then used to select the left common and internal iliac arteries | | | from the right TOOL MARKER approach. DSA was performed from the left [...] micropuncture access set was exchanged for a Open English wire. Under fluoroscopic guidance, | | a 5 Fr flush catheter was used to evaluate the distal abdominal aorta and pelvic | | vasculature. A wire and catheter were then used to select the left common and internal | | iliac arteries from the right TOOL MARKER approach. DSA was performed from the left [...] micropuncture access set was exchanged for a Open English wire. Under fluoroscopic guidance, a 5 Fr flush catheter was used | |to evaluate the distal abdominal aorta and pelvic vasculature. A wire and catheter were th en used to select the left common and internal iliac arteries from the right TOOL MARKER approach. DSA was performed from the left [...] [facility] | [address] | [place], [place] | | | [employer] [employer] | [facility] | [address] | | | TESTS | | | | + + + + + EXPLORATORY LAPAROTOMY (09/01/2017 12:31 PM PDT) + + + | Narrative | Performed At | + + + | Fidelina Shields MD 09/01/2017 12:42 PM BRIEF OPERATIVE NOTE: | | | Date: 09/01/2017 Author: Fidelina Shields MD | | | Attending Physician: Fidelina Shields MD Staff Appraiser(s): Haim Peralta | | | , Vicente Butts MD, [facility] MS3 Prior to the | [...] case. | | | Fidelina Shields MD Network Systems Engineer Division of Trauma, | | | Critical Care and Acute Care Surgery Office: [phone] Pager: | | | [phone] | | + + + ABG-FULL ABL, [...] + + + | [facility] | [address] | [place], [place] | | | [facility] | [address] | [address] | | | TESTS | | | [...] | + + + + + | [facility] | [address] | [place] [address] | | | SERVICES, CORE | VILMA [...] [facility] | [address] | [place], [place] | | | [facility] | [address] | [address] | | | TESTS | | | [...] + + + + | PRODUCT | [id number] | | [facility] | | | UNIT [...] + + + + | EXPIRATION | [id number] | | [facility] | | | DATE [...] + + + + | BLOOD | [id number] | | [facility] | | | PRODUCT [...] [facility] | [address] | [place] [address] | | | SERVICES, | [address] [...] + + + + | PRODUCT | [id number] | | [facility] | | | UNIT [...] + + + + | EXPIRATION | [id number] | | [facility] | | | DATE [...] + + + + | BLOOD | [id number] | | [facility] | | | PRODUCT [...] [facility] | [address] | [place] [address] | | | SERVICES, | [address] [...] + + + + | PRODUCT | [id number] | | [facility] | | | UNIT [...] + + + + | EXPIRATION | [id number] | | [facility] | | | DATE [...] + + + + | BLOOD | [id number] | | [facility] | | | PRODUCT [...] [facility] | [address] | [place] [address] | | | SERVICES, | [address] [...] + + + + | PRODUCT | [id number] | | [facility] | | | UNIT [...] + + + + | EXPIRATION | [id number] | | [facility] | | | DATE [...] + + + + | BLOOD | [id number] | | [facility] | | | PRODUCT [...] | + + + + + | [facility] | [address] | [place] [address] | | | SERVICES, | [address] [...] + + + + | PRODUCT | [id number] | | [facility] | | | UNIT [...] + + + + | EXPIRATION | [id number] | | [facility] | | | DATE [...] + + + + | BLOOD | [id number] | | [facility] | | | PRODUCT [...] | + + + + + | [facility] | [address] | [place] [address] | | | SERVICES, | [address] [...] + + + + | PRODUCT | [id number] | | [facility] | | | UNIT [...] + + + + | EXPIRATION | [id number] | | [facility] | | | DATE [...] + + + + | BLOOD | [id number] | | [facility] | | | PRODUCT [...] | + + + + + | [facility] | [address] | [place] [address] | | | SERVICES, | [address] [...] + + + + | PRODUCT | [id number] | | [facility] | | | UNIT [...] + + + + | EXPIRATION | [id number] | | [facility] | | | DATE [...] + + + + | BLOOD | [id number] | | [facility] | | | PRODUCT [...] | + + + + + | [facility] | [address] | [place] [address] | | | SERVICES, | [address] [...] + + + + | PRODUCT | [id number] | | [facility] | | | UNIT [...] + + + + | EXPIRATION | [id number] | | [facility] | | | DATE [...] + + + + | BLOOD | [id number] | | [facility] | | | PRODUCT [...] [facility] | [address] | [place] [address] | | | SERVICES, | [address] [...] + + + + | PRODUCT | [id number] | | [facility] | | | UNIT [...] + + + + | EXPIRATION | [id number] | | [facility] | | | DATE [...] + + + + | BLOOD | [id number] | | [facility] | | | PRODUCT [...] [facility] | [address] | [place] [id number] | | | SERVICES, | [address] [...] + + + + | PRODUCT | [id number] | | [facility] | | | UNIT [...] + + + + | EXPIRATION | [id number] | | [facility] | | | DATE [...] + + + + | BLOOD | [id number] | | [facility] | | | PRODUCT [...] [facility] | [address] | [place] [address] | | | SERVICES, | [address] [...] + + + + | PRODUCT | [id number] | | [facility] | | | UNIT [...] + + + + | EXPIRATION | [id number] | | [facility] | | | DATE [...] + + + + | BLOOD | [id number] | | [facility] | | | PRODUCT [...] [facility] | [address] | [place] [address] | | | SERVICES, | [address] [...] + + + + | PRODUCT | [id number] | | [facility] | | | UNIT [...] + + + + | EXPIRATION | [id number] | | [facility] | | | DATE [...] + + + + | BLOOD | [id number] | | [facility] | | | PRODUCT [...] [facility] | [address] | [place] [address] | | | SERVICES, | [address] [...] + + + + | PRODUCT | [id number] | | [facility] | | | UNIT [...] + + + + | EXPIRATION | [id number] | | [facility] | | | DATE [...] + + + + | BLOOD | [id number] | | [facility] | | | PRODUCT [...] | + + + + + | [facility] | [address] | [place] [address] | | | SERVICES, | [address] [...] + + + + | PRODUCT | [id number] | | [facility] | | | UNIT [...] + + + + | EXPIRATION | [id number] | | [facility] | | | DATE [...] + + + + | BLOOD | [id number] | | [facility] | | | PRODUCT [...] | + + + + + | [facility] | [address] | [place] [address] | | | SERVICES, | [address] [...] + + + + | PRODUCT | [id number] | | [facility] | | | UNIT [...] + + + + | EXPIRATION | [id number] | | [facility] | | | DATE [...] + + + + | BLOOD | [id number] | | [facility] | | | PRODUCT [...] | + + + + + | [facility] | [address] | [place] [address] | | | SERVICES, | [address] [...] + + + + | PRODUCT | [id number] | | [facility] | | | UNIT [...] + + + + | EXPIRATION | [id number] | | [facility] | | | DATE [...] + + + + | BLOOD | [id number] | | [facility] | | | PRODUCT [...] | + + + + + | [facility] | [address] | [place] [address] | | | SERVICES, | [address] [...] + + + + | PRODUCT | [id number] | | [facility] | | | UNIT [...] + + + + | EXPIRATION | [id number] | | [facility] | | | DATE [...] + + + + | BLOOD | [id number] | | [facility] | | | PRODUCT [...] | + + + + + | [facility] | [address] | [place] [address] | | | SERVICES, | [address] [...] + + + + | PRODUCT | [id number] | | [facility] | | | UNIT [...] + + + + | EXPIRATION | [id number] | | [facility] | | | DATE [...] + + + + | BLOOD | [id number] | | [facility] | | | PRODUCT [...] [facility] | [address] | [place] [address] | | | SERVICES, | [...] + + + + | PRODUCT | [id number] | | [facility] | | | UNIT [...] + + + + | EXPIRATION | [id number] | | [facility] | | | DATE [...] + + + + | BLOOD | [id number] | | [facility] | | | PRODUCT [...] [facility] | [address] | [place] [address] | | | SERVICES, | [address] [...] + + + + | PRODUCT | [id number] | | [facility] | | | UNIT [...] + + + + | EXPIRATION | [id number] | | [facility] | | | DATE [...] + + + + | BLOOD | [id number] | | [facility] | | | PRODUCT [...] [facility] | [address] | [place] [address] | | | SERVICES, | [address] [...] + + + + | PRODUCT | [id number] | | [facility] | | | UNIT [...] + + + + | EXPIRATION | [id number] | | [facility] | | | DATE [...] + + + + | BLOOD | [id number] | | [facility] | | | PRODUCT [...] [facility] | [address] | [place] [address] | | | SERVICES, | [address] [...] + + + + | PRODUCT | [id number] | | [facility] | | | UNIT [...] + + + + | EXPIRATION | [id number] | | [facility] | | | DATE [...] + + + + | BLOOD | [id number] | | [facility] | | | PRODUCT [...] [facility] | [address] | [place] [address] | | | SERVICES, | [address] [...] + + + + | PRODUCT | [id number] | | [facility] | | | UNIT [...] + + + + | EXPIRATION | [id number] | | [facility] | | | DATE [...] + + + + | BLOOD | [id number] | | [facility] | | | PRODUCT [...] [facility] | [address] | [place] [address] | | | SERVICES, | [address] [...] + + + + | PRODUCT | [id number] | | [facility] | | | UNIT [...] + + + + | EXPIRATION | [id number] | | [facility] | | | DATE [...] + + + + | BLOOD | [id number] | | [facility] | | | PRODUCT [...] | + + + + + | [facility] | [address] | [place] [address] | | | SERVICES, | [address] [...] + + + + | PRODUCT | [id number] | | [facility] | | | UNIT [...] + + + + | EXPIRATION | [id number] | | [facility] | | | DATE [...] + + + + | BLOOD | [id number] | | [facility] | | | PRODUCT [...] | + + + + + | [facility] | [address] | [place] [address] | | | SERVICES, | [address] [...] + + + + | PRODUCT | [id number] | | [facility] | | | UNIT [...] + + + + | EXPIRATION | [id number] | | [facility] | | | DATE [...] + + + + | BLOOD | [id number] | | [facility] | | | PRODUCT [...] | + + + + + | [facility] | [address] | [place] [address] | | | SERVICES, | [address] [...] | + + + + + | [facility] | [address] [facility] | [place] [address] | | | SERVICES, CORE | VIL[address] [...] | | | LABORATORY | | | [place] | | | SERVICES, | | | [...] [facility] | [address] | [place] [address] | | | SERVICES, CORE | PARK [...] | + + + + + | [facility] | [address] | [place] [address] | | | SERVICES, CORE | VILMA [...] 27.1 | 21 - 28 mmol/L | [facility] - | | | ARTERIAL, | [...] [facility] | [address] | [place], [place] | | | [employer] | [address] | [address] | | | TESTS | | | [...] + + + + | PRODUCT | [id number] | | [facility] | | | UNIT [...] + + + + | EXPIRATION | [id number] | | [facility] | | | DATE [...] + + + + | BLOOD | [id number] | | [facility] | | | PRODUCT [...] | + + + + + | [facility] | [address] | [place] [address] | | | SERVICES, | [address] [...] + + + + | PRODUCT | [id number] | | [facility] | | | UNIT [...] + + + + | EXPIRATION | [id number] | | [facility] | | | DATE [...] + + + + | BLOOD | [id number] | | [facility] | | | PRODUCT [...] | + + + + + | [facility] | [address] | [place] [address] | | | SERVICES, | [address] [...] + + + + | PRODUCT | [id number] | | [facility] | | | UNIT [...] + + + + | EXPIRATION | [id number] | | [facility] | | | DATE [...] + + + + | BLOOD | [id number] | | [facility] | | | PRODUCT [...] | + + + + + | [facility] | [address] | [place] [address] | | | SERVICES, | [address] [...] + + + + | PRODUCT | [id number] | | [facility] | | | UNIT [...] + + + + | EXPIRATION | [id number] | | [facility] | | | DATE [...] + + + + | BLOOD | [id number] | | [facility] | | | PRODUCT [...] | + + + + + | [facility] | [address] [facility] | [place] [address] | | | SERVICES, | [address] [...] + + + + | PRODUCT | [id number] | | [facility] | | | UNIT [...] + + + + | EXPIRATION | [id number] | | [facility] | | | DATE [...] + + + + | BLOOD | [id number] | | [facility] | | | PRODUCT [...] [facility] | [address] | [place] [address] | | | SERVICES, | [address] [...] + + + + | PRODUCT | [id number] | | [facility] | | | UNIT [...] + + + + | EXPIRATION | [id number] | | [facility] | | | DATE [...] + + + + | BLOOD | [id number] | | [facility] | | | PRODUCT [...] [facility] | [address] | [place] [address] | | | SERVICES, | [address] [...] + + + + | PRODUCT | [id number] | | [facility] | | | UNIT [...] + + + + | EXPIRATION | [id number] | | [facility] | | | DATE [...] + + + + | BLOOD | [id number] | | [facility] | | | PRODUCT [...] [facility] | [address] | [place] [address] | | | SERVICES, | [address] [...] + + + + | PRODUCT | [id number] | | [facility] | | | UNIT [...] + + + + | EXPIRATION | [id number] | | [facility] | | | DATE [...] + + + + | BLOOD | [id number] | | [facility] | | | PRODUCT [...] [facility] | [address] | [place] [address] | | | SERVICES, | [address] [...] + + + + | PRODUCT | [id number] | | [facility] | | | UNIT [...] + + + + | EXPIRATION | [id number] | | [facility] | | | DATE [...] + + + + | BLOOD | [id number] | | [facility] | | | PRODUCT [...] [facility] | [address] | [place] [address] | | | SERVICES, | [address] [...] [facility] | [address] | [place] [address] | | | SERVICES, CORE | PARK [...] | + + + + + | [facility] | [address] | [place] [address] | | | SERVICES, CORE | [address] [...] | | | LABORATORY | | | [place]ICAN | | | SERVICES, | | | [...] the MDRD equation recommended by the | [facility] | | National Kidney Disease Education [...] | + + + + + | [facility] | [address] | [place] [address] | | | SERVICES, CORE | [address] | | | + + + + + MAGNESIUM, PLASMA (09/01/2017 1:33 AM PDT) + +---------+ + + + | Component | Value | Ref Range | Performed | Pathologist | | | | | At | Signature | + +---------+ + + + | MAGNESIUM,P | 1.4 (L) | 1.6 - 2.6 mg/dL | [facility] | | | [facility] | | | [...] [facility] | [address] | [place] [address] | | | SERVICES, NATALEE | VILMA [...] | + + + + + | [facility] | [address] | [place] [address] | | | SERVICES, CORE | PARK [...] [facility] | [address] | [place] [address] | | | NATALEE WORTHINGTON | [address] [...] pleural spaced was performed. A 32 size [place]guillan chest tube was | | | placed [...] Note | + + | Service Account, [employer] Res In Interface - 09/01/2017 10:14 AM [...] [facility] | [address] | [place], [place] | | | GL[facility] GENAO [facility]ARE | [address] | [address] | | | TESTS | | | [...] [facility] | [address] | [place] [address] | | | SERVICES, CORE | VIL[address] [...] | + + + + + | [facility] | [address] [facility] | [place] [address] | | | SERVICES, CORE | PARK [...] Note | + + | Service Account, [employer] In Interface - 09/01/2017 1:50 PM PDT [...] Note | + + | Service Account, [employer] In Interface - 09/01/2017 1:40 PM [...] Note | + + | Service Account, [employer] Res In Interface - 09/01/2017 1:50 PM [...] Note | + + | Service Account, [employer] Res In Interface - 09/01/2017 1:50 PM [...] [facility] | [address] | [place] [address] | | | ELIN, NATALEE | [address] | | | + + + + + X-RAY PORTABLE CHEST 1 VIEW (08/31/2017 7:07 PM PDT) + + | Specimen | + + | | + + + + + | Narrative | Performed At | + + + | STUDY: [place] CHEST 1 VIEW HISTORY: Trauma COMPARISON: CT CAP | [facility] | | 08/31/2017 FINDINGS: Endotracheal tube [...] | + + + + + | [facility] | [address] [facility] | [place] [address] | | | ELIN, NATALEE | [address] [...] rib, nondisplaced-Left | | 1st rib fracture, xkaomvswzuwt-Ahg-jniqgzwkk left lateral 8th rib fracture-T12 fracture | [...] Note | + + | Service Account, [employer] Res In Interface - 08/31/2017 8:10 PM [...] | + + + + + | [facility] | [address] | [place] [address] | | | SERVICES, | [address] [...] [facility] | [address] | [place] [address] | | | SERVICES, | [address] [...] | + + + + + | [facility] | [address] | [place] [address] | | | SERVICES, | [address] [...] [facility] | [address] | [place], [place] | | | [facility] GE[facility] | [facility] | [address] | | | TESTS | | | [...] [facility] | [address] | [place], [place] | | | [employer] | [address] | [address] | | | TESTS | | | [...] - [facility] | [address] | [place], [place] | | | [facility] | [address] | [address] | | | TESTS | | | [...] [facility] | [address] | [place], [place] | | | [facility] | [facility] | [address] | | | TESTS | | | [...] + + + + | PRODUCT | [id number] | | [facility] | | | UNIT [...] + + + + | EXPIRATION | [id number] | | [facility] | | | DATE [...] + + + + | BLOOD | [id number] | | [facility] | | | PRODUCT [...] [facility] | [address] | [place] [address] | | | SERVICES, | [address] [...] + + + + | PRODUCT | [id number] | | [facility] | | | UNIT [...] + + + + | EXPIRATION | [id number] | | [facility] | | | DATE [...] + + + + | BLOOD | [id number] | | [facility] | | | PRODUCT [...] [facility] | [address] | [place] [address] | | | SERVICES, | [address] [...] + + + + | PRODUCT | [id number] | | [facility] | | | UNIT [...] + + + + | EXPIRATION | [id number] | | [facility] | | | DATE [...] + + + + | BLOOD | [id number] | | [facility] | | | PRODUCT [...] [facility] | [address] | [place] [address] | | | SERVICES, | [address] [...] + + + + | PRODUCT | [id number] | | [facility] | | | UNIT [...] + + + + | EXPIRATION | [id number] | | [facility] | | | DATE [...] + + + + | BLOOD | [id number] | | [facility] | | | PRODUCT [...] [facility] | [address] | [place] [address] | | | SERVICES, | [address] [...] + + + + | PRODUCT | [id number] | | [facility] | | | UNIT [...] + + + + | EXPIRATION | [id number] | | [facility] | | | DATE [...] + + + + | BLOOD | [id number] | | [facility] | | | PRODUCT [...] [facility] | [address] | [place] [address] | | | SERVICES, | [address] [...] + + + + | PRODUCT | [id number] | | [facility] | | | UNIT [...] + + + + | EXPIRATION | [id number] | | [facility] | | | DATE [...] + + + + | BLOOD | [id number] | | [facility] | | | PRODUCT [...] | + + + + + | [facility] | [address] | [place] [address] | | | SERVICES, | [address] [...] + + + + | PRODUCT | [id number] | | [facility] | | | UNIT [...] + + + + | EXPIRATION | [id number] | | [facility] | | | DATE [...] + + + + | BLOOD | [id number] | | [facility] | | | PRODUCT [...] | + + + + + | [facility] | [address] | [place] [address] | | | SERVICES, | [address] [...] + + + + | PRODUCT | [id number] | | [facility] | | | UNIT [...] + + + + | EXPIRATION | [id number] | | [facility] | | | DATE [...] + + + + | BLOOD | [id number] | | [facility] | | | PRODUCT [...] | + + + + + | [facility] | [address] | [place] [address] | | | SERVICES, | [address] [...] | + + + + + | [facility] | [address] | [place] [address] | | | SERVICES, CORE | [address] [...] | | | LABORATORY | | | [place]ICAN | | | SERVICES, | | | [...] the MDRD equation recommended by the | [facility] | | National Kidney Disease Education [...] [facility] | [address] | [place] [address] | | | SERVICES, CORE | PARK [...] | + + + + + | [facility] | [address] | [place] [address] | | | SERVICES, CORE | PARK [...] [facility] | [address] | [place] [address] | | | SERVICES, CORE | PARK [...] [facility] | [address] | [place] [address] | | | SERVICES, CORE | PARK [...] [facility] | [address] | [place] [address] | | | SERVICES, CORE | [address] [...] | | | | | modification) on [facility] 11/07/17 at | | | | | [...]
--- OUTSIDE RECORDS SUMMARY | ~2019-12-25 | XMS | Encounter Summary ---
Demographics + + + | Address | [address] | | | [place] [address] | + + + | Home Phone [...] Author + + + | Author | [facility] | + + + | Organization | [facility] [facility] | + [...] Team Providers + +------+ + | Care Game Farm Helper Name | Role | Phone | [...] 2017 | | [address] | [address] | TUBE PLACEMENT | | | | Rd [facility] Luis E | [place] | | | | | Hospital Admitting | [place], [place] | | | | | Desk Located on the | [address] | | | | | 9 floor | [phone] | | | | | [place], [place] | | | | | | [address] | | | +--------+---------+ + + + [...] risk for aspiration # nutrition - NPO, PORCELAIN ENAMEL SPRAYER evaluating patient when out of c collar [...] - Neurosurgery following peripherally - Must wear DISTRIBUTION OPERATIONS SUPERVISOR when OOB, ok for C-collar only when in bed - 12 week collar period up on 11/23, Neurosurgery documented C collar/DISTRIBUTION OPERATIONS SUPERVISOR weaning protocol o pete next 5 weeks- [...] DC. He will need home health PT/ OT/PORCELAIN ENAMEL SPRAYER, which will not be arranged until next [...] None required Recommended rehabilitation therapies: Home health PT/OT/PORCELAIN ENAMEL SPRAYER Discharge Medications: Medication List START taking these [...] health follow up in your [facility] for follow up in 2-4 [...] that I, or Nurse Practitioner or Physician Security System Installer working with me, had a face to face encounter with this patient on 12/06/2017 On behalf of Attending Physician: Chaz Hernandez MD I am ordering and certify that the following services are medically necessary [facility] Physical Therapy Evaluate and Treat I am ordering and certify that the following services are medically necessary [facility] Occupational Therapy Evaluate and Treat I am ordering and certify that the following services are medically necessary [facility] Speech Language Pathology Evaluate and Treat I am ordering and certify that the following services are medically necessary [facility] Health SAFETY ASSISTANT Evaluate and Treat I certify that the patient is homebound based on the following clinical findings Post-hospi rakesh weakness, decreased strength and endurance, and tires easily with minimal exertion Follow Up: Schedule the following appointment(s) when you get home Call [facility] TRA[facility]MA P[facility]. Why: As needed with questions, not mandatory Contact information [address] [facility] [address] Primary care provider. Schedule [...] is 23.14 kg/m. Discharging Provider: Sherine Sarmiento [facility] Discharging Surgeon : Magali Elias MD [facility] Division of Acute Care Surgery/Critical Care [address] [place] [address] [id number] signed by Magali Elias MD,MPH at 12/09/2017 [...] EOMI Neck: weaning cervical aspen collar & DISTRIBUTION OPERATIONS SUPERVISOR per NSG weaning protocol Respiratory: unlabored on [...] Started bolus tube feeds 11/23: Begun C collar/DISTRIBUTION OPERATIONS SUPERVISOR weaning 11/28: Psychiatry re-consulted for behavioral issues [...] risk for aspiration # nutrition - NPO, PORCELAIN ENAMEL SPRAYER evaluating patient when out of c collar [...] - Neurosurgery following peripherally - Must wear DISTRIBUTION OPERATIONS SUPERVISOR when OOB, ok for C-collar only when in bed - 12 week collar period up on 11/23, Neurosurgery documented C collar/DISTRIBUTION OPERATIONS SUPERVISOR weaning protocol o pete next 5 weeks- [...] obic coverage Disposition: continue tube feeds, continue PORCELAIN ENAMEL SPRAYER evals while c collar off. Started depakote f or agitation with good response. Girlfriend Magali will be visiting today, this is ok per his sister Annita (see social work note). [place] [address] [facility] [address] [place] [phone] Associated attestation - Magali Elias MD,MPH - [...] less agitated overnight per nursing Remains in nazareth vest Current meds: I have independently reviewed [...] EOMI Neck: weaning cervical aspen collar & DISTRIBUTION OPERATIONS SUPERVISOR per NSG weaning protocol Respiratory: unlabored on [...] Started bolus tube feeds 11/23: Begun C collar/DISTRIBUTION OPERATIONS SUPERVISOR weaning 11/28: Psychiatry re-consulted for behavioral issues [...] risk for aspiration # nutrition - NPO, PORCELAIN ENAMEL SPRAYER evaluating patient when out of c collar [...] - Neurosurgery following peripherally - Must wear DISTRIBUTION OPERATIONS SUPERVISOR when OOB, ok for C-collar only when in bed - 12 week collar period up on 11/23, Neurosurgery documented C collar/DISTRIBUTION OPERATIONS SUPERVISOR weaning protocol o pete next 5 weeks- [...] obic coverage Disposition: continue tube feeds, continue PORCELAIN ENAMEL SPRAYER evals while c collar off. Started depakote f or agitation with good initial response. Pending placement at adult foster home Sherine Sarmiento, [place] [address] [facility] [place] [address] [phone] Associated attestation - Magali Elias MD,MPH - 12/04/2017 2:23 PM PDTI was present and rounded with the ANP Sherine Sarmiento today. I interviewed and examined the patient. I reviewed the history, as documented today. I participated in the development of and agree wi th the assessment and plan. Much less agitated. Continue current care. Sherine Sarmiento, [facility] - 12/03/2017 6:30 AM PDTFormatting [...] Started bolus tube feeds 11/23: Begun C collar/DISTRIBUTION OPERATIONS SUPERVISOR weaning 11/28: Psychiatry re-consulted for behavioral issues [...] risk for aspiration # nutrition - NPO, PORCELAIN ENAMEL SPRAYER evaluating patient when out of c collar [...] - Neurosurgery following peripherally - Must wear DISTRIBUTION OPERATIONS SUPERVISOR when OOB, ok for C-collar only when in bed - 12 week collar period up on 11/23, Neurosurgery documented C collar/DISTRIBUTION OPERATIONS SUPERVISOR weaning protocol o pete next 5 weeks- [...] obic coverage Disposition: continue tube feeds, continue PORCELAIN ENAMEL SPRAYER evals while c collar off. Starting depakote for agitation. Pending placement [place] adult foster [place] [address] [facility] [place] [address] [address] [place] [address] [phone] Associated attestation - Magali Elias MD,MPH - [...] . Ok to resume feeds. Ad Callejas [id number] rafts, Venita Rod PA-C - 12/02/2017 10:55 [...] Started bolus tube feeds 11/23: Begun C collar/DISTRIBUTION OPERATIONS SUPERVISOR weaning 11/28: Psychiatry re-consulted for behavioral issues [...] risk for aspiration # nutrition - NPO, PORCELAIN ENAMEL SPRAYER evaluating patient when out of c collar [...] - Neurosurgery following peripherally - Must wear DISTRIBUTION OPERATIONS SUPERVISOR when OOB, ok for C-collar only when [...] obic coverage Disposition: continue tube feeds, continue PORCELAIN ENAMEL SPRAYER evals while c collar off. Optimize sleep. Venita Pruitt PA-C P[place] [phone] [facility] [place] [address] [place] [facility] [place] [address] Associated attestation - Magali [...] Started bolus tube feeds 11/23: Begun C collar/DISTRIBUTION OPERATIONS SUPERVISOR weaning 11/28: Psychiatry re-consulted for behavioral issues [...] risk for aspiration # nutrition - NPO, PORCELAIN ENAMEL SPRAYER evaluating patient when out of c collar [...] - Neurosurgery following peripherally - Must wear DISTRIBUTION OPERATIONS SUPERVISOR when OOB, ok for C-collar only when [...] obic coverage Disposition: continue tube feeds, continue PORCELAIN ENAMEL SPRAYER evals while c collar off. Going back on hald ol for aggression. Optimize sleep. Venita Pruitt PA-C [place] [phone] [place] [facility] [phone] Associated attestation - Nubia Nieto MD,MPH - 12/01/2017 2:17 PM PDTATTENDING ADDENDU M: I personally interviewed and examined the patient today with the trauma team and the physic gabriela product development assistant. I participated in the development of and agree with the assessment and plan. 1. Scheduled haloperidol BID 5mg. Plus PRN 2. Continue PORCELAIN ENAMEL SPRAYER evaluation 3. Melatonin for qHS sleep Nubia Nieto MD, MPH Attending Surgeon Trauma, Critical Care & Acute Care Surgery [facility] [phone] Monse Carrasco MD,MPH - 11/30/2017 10:43 AM [...] EOMI Neck: intermittently in aspen collar and DISTRIBUTION OPERATIONS SUPERVISOR Respiratory: unlabored on room air CV: regular [...] Started bolus tube feeds 11/23: Begun C collar/DISTRIBUTION OPERATIONS SUPERVISOR weaning 11/28: Psychiatry re-consulted for behavioral issues [...] risk for aspiration # nutrition - NPO, PORCELAIN ENAMEL SPRAYER evaluating patient when out of c collar [...] - Neurosurgery following peripherally - Must wear DISTRIBUTION OPERATIONS SUPERVISOR when OOB, ok for C-collar only when [...] obic coverage Disposition: continue tube feeds, continue PORCELAIN ENAMEL SPRAYER evals while c collar off. Optimize sleep. Monse Carrasco MD MPH [facility] [place] [address] [phone] Associated attestation - Shlomo Bravo MD - 12/05/2017 10:55 AM PDTI saw and examined Charli Temple ([id number]) with the TRAUMA team on 11/30/2017. I agree with the assessment and plan a s outlined in this note and participated in the planning of care. I have personally reviewed all pertinent labarotory findings, radiographs, and physiologic parameters. I personally pe rformed pertinent parts of the physical examination and personally formulated the plan with the TRAUMA team. Shlomo Bravo MD Chair Post Machine Operator Division of Trauma and Critical [...] scalp, EOMI Neck: in aspen collar and DISTRIBUTION OPERATIONS SUPERVISOR Respiratory: unlabored on room air CV: regular [...] Started bolus tube feeds 11/23: Begun C collar/DISTRIBUTION OPERATIONS SUPERVISOR weaning 11/28: Psychiatry re-consulted for behavioral issues [...] risk for aspiration # nutrition - NPO, PORCELAIN ENAMEL SPRAYER evaluating patient when out of c collar [...] - Neurosurgery following peripherally - Must wear DISTRIBUTION OPERATIONS SUPERVISOR when OOB, ok for C-collar only when [...] [facility] Kepp ra - [...] obic coverage Disposition: continue tube feeds, continue PORCELAIN ENAMEL SPRAYER evals and c collar weaning. Optimize sleep Monse Carrasco MD MPH [facility] [address] [place] [address] [phone] Associated attestation - Brian Painting MD - 12/08/2017 7:33 PM PDTAttending: I saw and examined Diogenes Temple ([id number]) with the residents on 11/29/17 and agree with th e assessment and plan as outlined in this note and participated in the planning of care. Brian Painting MD FACS inside sales account manager Division of Trauma, Critical Care & [...] scalp, EOMI Neck: in aspen collar and DISTRIBUTION OPERATIONS SUPERVISOR Respiratory: unlabored on room air CV: regular [...] Started bolus tube feeds 11/23: Begun C collar/DISTRIBUTION OPERATIONS SUPERVISOR weaning 11/28: Psychiatry re-consulted for behavioral issues [...] risk for aspiration # nutrition - NPO, PORCELAIN ENAMEL SPRAYER evaluating patient when out of c collar [...] - Neurosurgery following peripherally - Must wear DISTRIBUTION OPERATIONS SUPERVISOR when OOB, ok for C-collar only when [...] obic coverage Disposition: continue tube feeds, continue PORCELAIN ENAMEL SPRAYER evals and c collar weaning Monse Carrasco MD MPH [facility] [place] [address] [phone] Associated attestation - Brian Painting MD - 11/28/2017 11:06 PM PDTAttending: I saw and examined Diogenes Temple ([id number]) with the residents on 11/28/17 and agree with e assessment and plan as outlined in this note and participated in the planning of care. Brian Painting MD FACS inside sales account manager Division of Trauma, Critical Care & Acute Care Surgery Fernando Li PA - 11/27/2017 3:32 PM PDTFormatting of this note might be differe nt from the original. NEUROSURGERY INPATIENT PROGRESS NOTE Hospital Day:88 Author; FERNANDO LI PA-C Attending Physician: Chaz Hernandez MD Neurosurgery: Magdiel Stock MD Interval Hx: -No events overnight -In process of DISTRIBUTION OPERATIONS SUPERVISOR weaning. Denies neck pain. Physical Exam: Last [...] Patient being managed in C collar and DISTRIBUTION OPERATIONS SUPERVISOR. -Patient developed drainage from previous crani site [...] imary Team. -Instructions have been provided for DISTRIBUTION OPERATIONS SUPERVISOR weaning. -Patient's exam stable. Denies Neck pain. Repeat imaging stable. Scalp incision healing well. -Please contact our service if there are any questions or need to re-consult. -No outpatient Neurosurgery FU needed. FERNANDO LI PA-C [facility] [address] [place] [address] Pg [phone] MEDICATIONS Current Facility-Administered Medications Medication acetaminophen (TYLENOL) [...] scalp, EOMI Neck: in aspen collar and DISTRIBUTION OPERATIONS SUPERVISOR Respiratory: unlabored on room air CV: regular [...] Started bolus tube feeds 11/23: Begun C collar/DISTRIBUTION OPERATIONS SUPERVISOR weaning Active issues/Plan: # BIG 3 TBI [...] risk for aspiration # nutrition - NPO, PORCELAIN ENAMEL SPRAYER evaluating patient when out of c collar [...] - Neurosurgery following peripherally - Must wear DISTRIBUTION OPERATIONS SUPERVISOR when OOB, ok for C-collar only when [...] obic coverage Disposition: continue tube feeds, continue PORCELAIN ENAMEL SPRAYER evals and c collar weaning CHRISTIAN KELLEY PA-C [facility] [address] [place] [address] [phone] Associated attestation - Brian Painting MD - 11/27/2017 8:50 PM PDTAttending: I saw and examined Diogenes Temple ([id number]) with Christian Kelley PA-C on 11/27/17 and agree wi th the assessment and plan as outlined in this note and participated in the planning of care . Increase melatonin and trazodone for insomnia. Enteral feeding via PEG tube for dysphagia. Disposition planning. Brian Painting MD FACS inside sales account manager Division of Trauma, Critical Care & Acute Care Surgery [facility], Venita Rod PA-C - 11/26/2017 6:25 AM [...] Weaning C- collar based on NSG plan PORCELAIN ENAMEL SPRAYER continues to follow Current meds: I have [...] Started bolus tube feeds 11/23: Begun C collar/DISTRIBUTION OPERATIONS SUPERVISOR weaning Active issues/Plan: # BIG 3 TBI [...] risk for aspiration # nutrition - NPO, PORCELAIN ENAMEL SPRAYER evaluating patient when out of c collar [...] - Neurosurgery following peripherally - Must wear DISTRIBUTION OPERATIONS SUPERVISOR when OOB, ok for C-collar only when [...] looking for placement Venita Pruitt PA-C [place] [phone] [facility] [place] [phone] [place] [facility] [place] [address] Associated attestation - Brian Painting MD - 11/26/2017 8:52 PM PDTAttending: I saw and examined Diogenes Temple ([id number]) with Venita Pruitt PA-C on 11/26/17 and agree wi th the assessment and plan as outlined in this note and participated in the planning of care . Continue enteral feeding via PEG tube due to dysphagia. Speech pathology continues to foll ow. Maintain cervical immbolization collar while in bed for C7 bilateral lamina fractures. D ischarge planning. Brian Painting MD FACS inside sales account manager Division of Trauma, Critical Care & [...] Weaning C- collar based on NSG plan PORCELAIN ENAMEL SPRAYER continues to follow Current meds: I have [...] Started bolus tube feeds 11/23: Begun C collar/DISTRIBUTION OPERATIONS SUPERVISOR weaning Active issues/Plan: # BIG 3 TBI [...] risk for aspiration # nutrition - NPO, PORCELAIN ENAMEL SPRAYER evaluating patient when out of c collar [...] - Neurosurgery following peripherally - Must wear DISTRIBUTION OPERATIONS SUPERVISOR when OOB, ok for C-collar only when [...] looking for placement Venita Pruitt PA-[place] [phone] [facility] [place] [address] [address] [facility] [place] [facility] [phone] Associated attestation - Brian Painting MD - 11/26/2017 11:56 AM PDTAttending: I saw and examined Diogenes Temple ([id number]) with Venita Pruitt PA-C on 11/25/17 and agree wi th the assessment and plan as outlined in this note and participated in the planning of care . Continue bolus enteral feeding via PEG tube for dysphagia. Trazodone and quetiapine for tr aumatic encephalopathy and agitation. Maintain cervical immbolization collar while in bed. Brian Painting MD FACS inside sales account manager Division of Trauma, Critical Care & [...] events: No acute events overnight Worked with PORCELAIN ENAMEL SPRAYER yesterday - remains NPO Doing well with c collar/factory superintendent weaning plan Current meds: I have independently [...] to midline right scalp, EOMI Neck: in [place] collar Chest: in DISTRIBUTION OPERATIONS SUPERVISOR Respiratory: unlabored on room air CV: regular [...] Started bolus tube feeds 11/23: Begun C collar/DISTRIBUTION OPERATIONS SUPERVISOR weaning Active issues/Plan: # BIG 3 TBI [...] risk for aspiration # nutrition - NPO, PORCELAIN ENAMEL SPRAYER evaluating patient when out of c collar [...] - Neurosurgery following peripherally - Must wear DISTRIBUTION OPERATIONS SUPERVISOR when OOB, ok for C-collar only when [...] CM looking for placement CHRISTIAN KELLEY PA-C [facility] [address] [phone] Associated attestation - Santos Weiss MD - [...] with speech toward being able to swallow. [id number] Christian Kelley PA-C - 11/23/2017 12:26 PM [...] overnight Planning to begin C collar and DISTRIBUTION OPERATIONS SUPERVISOR weaning plan Current meds: I have independently [...] to midline right scalp, EOMI Neck: in [place] collar Chest: in DISTRIBUTION OPERATIONS SUPERVISOR Respiratory: CTA bilaterally, lungs symmetrical, equal chest [...] Started bolus tube feeds 11/23: Begun C collar/DISTRIBUTION OPERATIONS SUPERVISOR weaning Active issues/Plan: # BIG 3 TBI [...] risk for aspiration # nutrition - NPO, PORCELAIN ENAMEL SPRAYER following - PEG tube feeds switched to goal @ 250 mL x 5/day, 225ml free water flushes 5x/day - PORCELAIN ENAMEL SPRAYER to work with patient on swallow while [...] - Neurosurgery following peripherally - Must wear DISTRIBUTION OPERATIONS SUPERVISOR when OOB, ok for C-collar only when [...] agitation & sleep management CHRISTIAN KELLEY PA-C [facility] [address] [address] [phone] leRandi estrella [facility] - 11/22/2017 6:37 AM PDTFormatting [...] risk for aspiration # nutrition - NPO, PORCELAIN ENAMEL SPRAYER following - PEG tube feeds switched to [...] - Neurosurgery following peripherally - Must wear DISTRIBUTION OPERATIONS SUPERVISOR when OOB, ok for C-collar only when [...] agitation & [place] [address] [facility] [place] [address] [place] [address] [phone] Associated attestation - Fidelina Shields MD - 11/25/2017 5:51 AM PDTAttending: I saw and examined Diogenes Temple ([id number]) with KESHAWN Alexander on mornin g rounds 11/22/17 and agree with the assessment and plan as outlined in this note and partic ipated in the planning of care. This is a late entry for care provided on that date. Sleep is somewhat improved with adjusted medication regimen. Increasing mobility. Plan c-c ollar weaning per neurosurgery recs. Fidelina Shields MD Renewable Energy Division Manager Division of Trauma, Critical Care and Acute Care Surgery Office: [phone] Pager: [phone] Fernando Li PA - 11/21/2017 4:21 PM PDTNeurosurgery Brief Note: Reviewed repeat imaging C spine. Ok to start C Collar and DISTRIBUTION OPERATIONS SUPERVISOR taper as planned on 11/23/17. Written 5 [...] PA-C [facility] [address] [place] [address] emo Sarmiento AGACNP - 11/21/2017 6:52 AM [...] risk for aspiration # nutrition - NPO, PORCELAIN ENAMEL SPRAYER following - PEG tube feeds switched to [...] - Neurosurgery following peripherally - Must wear DISTRIBUTION OPERATIONS SUPERVISOR when OOB, ok for C-collar only when in bed - 12 week c collar period up on 11/23, Neurosurgery will provide specific weaning protocol o ptee next 5 weeks Resolved or chronic issues/Plan: [...] Sleep & [place] [address] [facility] [address] [address] [phone] Associated attestation - Fidelina Shields MD - 11/21/2017 2:27 PM PDTAttending: I saw and examined Diogenes Temple ([id number]) with KESHAWN Alexander on mornin g rounds [...] mobility and daytime wakefullness. Fidelina Shields MD Renewable Energy Division Manager Division of Trauma, Critical Care and Acute Care Surgery Office: [phone] Pager: [phone] Venita Pruitt PA-C - 11/20/2017 12:31 PM [...] risk for aspiration # nutrition - NPO, PORCELAIN ENAMEL SPRAYER following - PEG tube feeds switched to [...] - Neurosurgery following peripherally - Must wear DISTRIBUTION OPERATIONS SUPERVISOR when OOB, ok for C-collar only when [...] seroquel as needed. Venita Pruitt PA-C [place] [phone] [facility] [address] [place] [facility] [phone] Associated attestation - Fidelina Shields MD - [...] Placement remains a challenge. Fidelina Shields MD Renewable Energy Division Manager Division of Trauma, Critical Care and Acute Care Surgery Office: [phone] Pager: [phone] Fernando Li PA - 11/20/2017 10:51 AM [...] Patient being managed in C collar and DISTRIBUTION OPERATIONS SUPERVISOR. -Patient developed drainage from previous crani site [...] Spine immobilization. Cervical collar while in bed, DISTRIBUTION OPERATIONS SUPERVISOR when OOB planned duration of immobilization 12 weeks total: 11/23/17. Will then wean out of Cervical collar over 5 week period. Will provide written instructions. CAITIE SCHULTZ-Merle [facility] [address] [place] [address] Pg [phone] MEDICATIONS Current Facility-Administered Medications Medication acetaminophen (TYLENOL) [...] risk for aspiration # nutrition - NPO, PORCELAIN ENAMEL SPRAYER following - PEG tube feeds switched to [...] - Neurosurgery following peripherally - Must wear DISTRIBUTION OPERATIONS SUPERVISOR when OOB, ok for C-collar only when [...] seroquel as needed. Venita Pruitt PA-C [place] [phone] [facility] & [address] [place] [facility] [phone] Associated attestation - Fidelina Shields MD - 11/19/2017 2:24 PM PDTAttending: I saw and examined Diogenes Temple with Venita Pruitt PA-C on morning rounds 11/19/17 and ag ree with the assessment and plan as outlined in this note and participated in the planning o f care. Adjusting antipsychotic medication and behavioral interventions while we search for suitabl e discharge plan. Fidelina Shields MD Renewable Energy Division Manager Division of Trauma, Critical Care and Acute Care Surgery Office: [phone] Pager: [phone] Fernando Li PA - 11/18/2017 9:03 AM [...] O2 Delivery Device: None (room air) (11/18/17 0763) 24 Hour Vital Min/Max: Systolic (24hrs), [...] Patient being managed in C collar and DISTRIBUTION OPERATIONS SUPERVISOR. -Patient developed drainage from previous crani site [...] Spine immobilization. Cervical collar while in bed, DISTRIBUTION OPERATIONS SUPERVISOR when OOB planned duration of immobilization 12 weeks total: 11/23/17. Will then wean out of Cervical collar over 5 week period. Will provide written instructions. FERNANDO LI PA-C [facility] [address] [place] [address] Pg [phone] MEDICATIONS Current Facility-Administered Medications Medication acetaminophen (TYLENOL) [...] risk for aspiration # nutrition - NPO, PORCELAIN ENAMEL SPRAYER following - PEG tube feeds switched to [...] - Neurosurgery following peripherally - Must wear DISTRIBUTION OPERATIONS SUPERVISOR when OOB, ok for C-collar only when in bed - Will likely need for 12 weeks (ends November 23), then wean out of Cervical collar over 5 w northway period. Per NSG they will provide written [...] haldol as tolerated Venita Pruitt PA-C [place] [phone] [place] [phone] [facility] [address] [place] [facility] [phone] Associated attestation - Fidelina Shields MD - 11/19/2017 12:18 AM PDTAttending: I saw and examined Diogenes Temple with Venita Pruitt PA-C on morning rounds 11/18/17 and ag ree with the assessment and plan as outlined in this note and participated in the planning o f care. Mental status continues to wax/wane, working on disposition options. Fidelina Shields MD [employer]able [employer] Division Manager Division of Trauma, Critical Care and Acute Care Surgery Office: [phone] Pager: [phone] Sherine Sarmiento AGACNP - 11/17/2017 10:49 AM [...] risk for aspiration # nutrition - NPO, PORCELAIN ENAMEL SPRAYER following - PEG tube feeds switched to goal @ 275 mL x 5/day, 200ml free water flushes 5x/day # insomnia - melatonin 3mg qhs - Haldol 5mg Qhs - Trazadone increased from 50 [id number] QHS with no effect - Start Quetiapine 50mg QHS with 25mg Q12hrs PRN, with the goal of uptitrating seroquel and weaning off haldol - ECG 11/17 QTC 427 #Relative hypotension - Improving after initiation of free water flushes - Orthostatics negative # C7 bilateral lamina fractures/ C6-T2 spinous process fractures - Neurosurgery following peripherally - Must wear DISTRIBUTION OPERATIONS SUPERVISOR when OOB, ok for C-collar only when in bed - Will likely need for 12 weeks (ends Rosie 28th), then wean out of Cervical collar over 5 w northway period. Per NSG they will provide written [...] effect, will add seroquel today Sherine Sarmiento, [facility] [phone] [facility] [place] [address] [facility] [address] Associated attestation - Em Cunningham MD - 11/27/2017 9:13 PM PDTI was present and rou nded with the Advanced Practice Provider today. I interviewed and examined the patient. I reviewed the history, as documented today. I agree with the ASHLEY assessment and plan. Con tinue abx for epidural abscess. PORCELAIN ENAMEL SPRAYER is continuing to follow. Continue feeding via PEG. May onin for insomnia. Must weat DISTRIBUTION OPERATIONS SUPERVISOR when OOB. EM CUNNINGHAM MD [facility] [address] [facility] [address] [place] [address] Sherine Sarmiento, AGACN - 11/16/2017 12:22 PM [...] risk for aspiration # nutrition - NPO, PORCELAIN ENAMEL SPRAYER following - PEG tube feeds switched to goal @ 275 mL x 5/day, 200ml free water flushes 5x/day # insomnia - melatonin 3mg qhs - Haldol 5mg Qhs - Will increase trazadone from 50 [id number] QHS #Relative hypotension - Improving after initiation of free water flushes - Orthostatics negative Resolved or chronic issues/Plan: # C7 bilateral lamina fractures/ C6-T2 spinous process fractures - Neurosurgery following - Must wear DISTRIBUTION OPERATIONS SUPERVISOR when OOB, ok for C-collar only when [...] increase trazod[place] for [place] [phone] [facility] [place] [address] [facility] [address] Associated attestation - Fidelina Shields MD - 11/25/2017 5:48 AM PDTAttending: I saw and examined Diogenes Temple ([id number]) with KESHAWN Alexander on mornin g rounds [...] remains a persistent issue. Fidelina Shields MD Renewable Energy Division Manager Division of Trauma, Critical Care and Acute Care Surgery Office: [phone] Pager: [phone] Fernando Li PA - 11/15/2017 1:59 PM [...] Patient being managed in C collar and DISTRIBUTION OPERATIONS SUPERVISOR. -Patient developed drainage from previous crani site [...] Spine immobilization. Cervical collar while in bed, DISTRIBUTION OPERATIONS SUPERVISOR when OOB planned duration of immobilization 12 weeks total: 11/23/17. Will then wean out of Cervical collar over 5 week period. Will provide written instructions. FERNANDO LI PA-C [facility] [address] [place] [address] MEDICATIONS Current Facility-Administered Medications Medication acetaminophen (TYLENOL) [...] mg traZODone (DESYREL) tablet 50 mg [facility] Campus[facility] Atkins AGACNP - 11/15/2017 6:43 AM PDTFormatting [...] risk for aspiration # nutrition - NPO, PORCELAIN ENAMEL SPRAYER following - PEG tube feeds switched to [...] fractures - Neurosurgery following - Must wear DISTRIBUTION OPERATIONS SUPERVISOR when OOB, ok for C-collar only when [...] by early next week Sherine [place]arm[place] [facility] [place] [phone] [facility] [place] [address] [facility] [address] Associated attestation - Em Cunningham MD - 11/16/2017 8:35 AM PDTI was present and rou nded with the Advanced Practice Provider today. I interviewed and examined the patient. I reviewed the history, as documented today. I agree with the ASHLEY assessment and plan. Worki ng on pain control. Continue melatonin and trazadone for insomnia. EM CUNNINGHAM MD [facility] [address] [facility] [address] [place] [address] Moncho Wise MD - 11/14/2017 6:35 PM [...] Dysphagia, risk for aspiration #nutrition - NPO, PORCELAIN ENAMEL SPRAYER following - PEG tube feeds switched to goal @ 275 mL x 5/day # insomnia - melatonin 3mg qhs - trazadone 50mg qhs Resolved or chronic issues/Plan: # C7 bilateral lamina fractures/ C6-T2 spinous process fractures - Neurosurgery following - Must wear DISTRIBUTION OPERATIONS SUPERVISOR when OOB, ok for C-collar only when [...] Wise MD General Surgery, PGY-1 Trauma pager: [phone] [facility] [address] [place] [address] Associated attestation - Em Cunningham MD - 11/15/2017 9:21 AM PDTI saw and evaluated t frankie patient. I agree with the findings and the plan of care as documented in the resident s note. EM CUNNINGHAM MD [facility] [address] [place] [address] [address] [place] [address] Moncho Wise MD - 11/13/2017 4:26 PM [...] Dysphagia, risk for aspiration #nutrition - NPO, PORCELAIN ENAMEL SPRAYER following - PEG tube feeds to nocturnal continuous for better tolerance -- 200mL/ 10 hours # insomnia - melatonin 3mg qhs - trazadone 50mg qhs Resolved or chronic issues/Plan: # C7 bilateral lamina fractures/ C6-T2 spinous process fractures - Neurosurgery following - Must wear DISTRIBUTION OPERATIONS SUPERVISOR when OOB, ok for C-collar only when [...] Wise MD General Surgery, PGY-1 Trauma pager: [phone] [facility] [address] [place] [address] [phone] Associated attestation - Em Cunningham MD - 11/14/2017 8:56 AM PDTI saw and evaluated t he patient. I agree with the findings and the plan of care as documented in the resident s note. EM CUNNINGHAM MD [facility] [address] [facility] [address] [place] [address] Fernando Li PA - 11/13/2017 1:22 PM [...] Patient being managed in C collar and DISTRIBUTION OPERATIONS SUPERVISOR. -Patient developed drainage from previous crani site [...] Spine immobilization. Cervical collar while in bed, DISTRIBUTION OPERATIONS SUPERVISOR when OOB anticipate duration of immobilization 12 weeks total: 11/23/17. Will then wean out of Cervical collar over 5 week period. CAITIE SCHULTZ-Merle [facility] [address] [facility] [address] [place] [address] Pg [phone] MEDICATIONS Current Facility-Administered Medications Medication acetaminophen (TYLENOL) [...] Dysphagia, risk for aspiration #nutrition - NPO, PORCELAIN ENAMEL SPRAYER following - PEG tube feeds to nocturnal continuous for better tolerance -- 200mL/ 10 hours # insomnia - melatonin 3mg qhs - trazadone 50mg qhs Resolved or chronic issues/Plan: # C7 bilateral lamina fractures/ C6-T2 spinous process fractures - Neurosurgery following - Must wear DISTRIBUTION OPERATIONS SUPERVISOR when OOB, ok for C-collar only when [...] Wise MD General Surgery, PGY-1 Trauma pager: [phone] [facility] [place] [address] [phone] Associated attestation - Shlomo Bravo MD - 11/12/2017 5:43 PM PDTAttending: I saw and examined Diogenes Temple ([id number]) with the residents on 11/12/2017 and agree with the assessment and plan as outlined in this note and participated in the planning of care. Shlomo Bravo MD Chair Post Machine Operator Division of Trauma and Critical [...] Dysphagia, risk for aspiration #nutrition - NPO, PORCELAIN ENAMEL SPRAYER following -PEG tube feeds to nocturnal continuous for better tolerance -- 200mL/ 10 hours # insomnia - will start melatonin - will start trazadone QHS Resolved or chronic issues/Plan: # C7 bilateral lamina fractures/ C6-T2 spinous process fractures - Neurosurgery following - Must wear DISTRIBUTION OPERATIONS SUPERVISOR when OOB, ok for C-collar only when [...] placeme nt options. Venita Pruitt PA-[place] [phone] [place] [phone] [facility] [place] [address] [phone] Associated attestation - Em Cunningham MD - [...] CUNNINGHAM MD [facility] [address] [place] [address] [place] [address] Fernando Li PA - 11/11/2017 9:21 AM [...] Patient being managed in C collar and DISTRIBUTION OPERATIONS SUPERVISOR. -Patient developed drainage from previous crani site [...] Spine immobilization. Cervical collar while in bed, DISTRIBUTION OPERATIONS SUPERVISOR when OOB anticipate duration of immobilization 12 weeks total EFRNANDO LI PA-C [facility] [address] [facility] [address] [place] [address] Pg [phone] MEDICATIONS Current Facility-Administered Medications Medication acetaminophen (TYLENOL) [...] Dysphagia, risk for aspiration #nutrition - NPO, PORCELAIN ENAMEL SPRAYER following - will change PEG tube feeds to nocturnal continuous for better tolerance -- 200mL/ 10 hour s # insomnia - will start melatonin - will start trazadone QHS Resolved or chronic issues/Plan: # C7 bilateral lamina fractures/ C6-T2 spinous process fractures - Neurosurgery following - Must wear DISTRIBUTION OPERATIONS SUPERVISOR when OOB, ok for C-collar only when [...] on placement options. Venita Pruitt PA-C [place] [phone] [place] [phone] [facility] [address] [place] [address] Associated attestation - Brian Painting MD - 11/10/2017 9:48 PM PDTAttending: I saw and examined Diogenes Temple ([id number]) with Venita Pruitt PA-C on 11/10/17 and agree wi th the assessment and plan as outlined in this note and participated in the planning of care . 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 Co ntinue enteral feeding via PEG due to dysphagia. Awaiting placement Brian Painting MD FACS inside sales account manager Division of Trauma, Critical Care & [...] Patient being managed in C collar and DISTRIBUTION OPERATIONS SUPERVISOR. -Patient developed drainage from previous crani site [...] Spine immobilization. Cervical collar while in bed, DISTRIBUTION OPERATIONS SUPERVISOR when OOB anticipate duration of immobilization 12 weeks total Please page [phone] with any questions or concerns. Akanksha Varma MD Neurosurgery, PGY-1 Pager [phone] rafts, CAITIE Haider - 11/09/2017 9:24 AM [...] venous duplex on 11/05 negative Summary: Diogenes Temlpe is a 67 y.o. [...] Dysphagia, risk for aspiration #nutrition - NPO, PORCELAIN ENAMEL SPRAYER following - will change PEG tube feeds to nocturnal continuous for better tolerance -- 200mL/ 10 hour s Resolved or chronic issues/Plan: # C7 bilateral lamina fractures/ C6-T2 spinous process fractures - Neurosurgery following - Must wear DISTRIBUTION OPERATIONS SUPERVISOR when OOB, ok for C-collar only when [...] on placement options. Venita Pruitt PA-C [place] [phone] [place] [phone] [facility] [place] [address] [address] [facility] [phone] Associated attestation - Magali Elias MD,MPH - [...] Patient being managed in C collar and DISTRIBUTION OPERATIONS SUPERVISOR. -Patient developed drainage from previous crani site [...] Spine immobilization. Cervical collar while in bed, DISTRIBUTION OPERATIONS SUPERVISOR when OOB anticipate duration of immobilization 12 weeks total Please page [phone] with any questions or concerns. Akanksha Varma MD Neurosurgery, PGY-1 Pager [phone] hDaisy petty PA - 11/08/2017 1:24 PM PDTFormatting of this note might be different from the [facility] l NEUROSURGERY INPATIENT PROGRESS NOTE Hospital [...] [address] HEAD WO CONTRAST Order: [id number] Performed: 11/07/2017 15:43 Status: Final result Visible [...] Patient being managed in C collar and DISTRIBUTION OPERATIONS SUPERVISOR. -Patient developed drainage from previous crani site [...] Spine immobilization. Cervical collar while in bed, DISTRIBUTION OPERATIONS SUPERVISOR when OOB anticipate duration of immobilization 12 weeks total FERNANDO LI PA-C [facility] [address] [facility] [address] [place] [address] MEDICATIONS Current Facility-Administered Medications Medication acetaminophen (TYLENOL) [...] Dysphagia, risk for aspiration #nutrition - NPO, PORCELAIN ENAMEL SPRAYER following - will change PEG tube feeds to nocturnal continuous for better tolerance -- 200mL/ 10 hour s Resolved or chronic issues/Plan: # C7 bilateral lamina fractures/ C6-T2 spinous process fractures - Neurosurgery following - Must wear DISTRIBUTION OPERATIONS SUPERVISOR when OOB, ok for C-collar only when [...] TF to nocturnal. Venita Pruitt PA-C [place] [phone] [place] [phone] [facility] [address] [place] [phone] Associated attestation - Santos Weiss MD - 11/08/2017 12:14 PM PDTI was present and r ounded with the Advanced Practice Provider today, Venita Pruitt. I interviewed and examined t he patient. I reviewed the history, as documented today. I agree with the ASHLEY assessment a nd plan. We are adjusting his tube feeds because he doesn't tolerate a high rate. [id number] Fernando Li PA - 11/07/2017 1:01 PM [...] Patient being managed in C collar and DISTRIBUTION OPERATIONS SUPERVISOR. -Patient developed drainage from previous crani site [...] Spine immobilization. Cervical collar while in bed, DISTRIBUTION OPERATIONS SUPERVISOR when OOB anticipate duration of immobilization 12 weeks total FERNANDO LI PA-C [facility] [address] [facility] [address] [place] [address] MEDICATIONS Current Facility-Administered Medications Medication acetaminophen (TYLENOL) [...] senna-docusate (SENOKOT S) 8.6-50 mg 1 tablet [facility] - 11/07/2017 7:16 AM PDTFormatting of [...] Dysphagia, risk for aspiration #nutrition - NPO, PORCELAIN ENAMEL SPRAYER following - TFs at goal 400 mL bolus Q5 hours, continues to have some gastroparesis & residuals. Will continue to monitor Resolved or chronic issues/Plan: # C7 bilateral lamina fractures/ C6-T2 spinous process fractures - Neurosurgery following - Must wear DISTRIBUTION OPERATIONS SUPERVISOR when OOB, ok for C-collar only when [...] Disposition: continue trauma [place] care Sherine Sarmiento, [facility] [place] [phone] [facility] [address] [place] [facility] [phone] Associated attestation - Santos Weiss MD - 11/07/2017 2:48 PM PDTI was present and r ounded with the Advanced Practice Provider today, Sherine Sarmiento. I interviewed and e xamined the patient. I reviewed the history, as documented today. I agree with the ASHLEY ass essment and plan. He did well with his cranioplasty yesterday. He will receive ancef until his KENDALL is out. [id number] Gurpreet Foy PA-C - 11/06/2017 8:47 AM [...] Dysphagia, risk for aspiration - NPO - PORCELAIN ENAMEL SPRAYER following Fluids/Electrolytes/Nutrition: No acute issues Renal: Urinary retention: -Straight cath for 450 -Flomax started Hematology: No acute issues Infectious Diseases: No acute issues Endocrinology: No acute issues Musculoskeletal/Skin: No acute issues RESOLVED ISSUES: nutrition - TFs at goal 400 mL bolus Q5 hours, tolerating C7 bilateral lamina fractures/ C6-T2 spinous process fractures - Neurosurgery following - Must wear DISTRIBUTION OPERATIONS SUPERVISOR when OOB, ok for C-collar only when [...] Department of Surgery Mail Code: [id number] [address] [place] [address] Associated attestation - Magali Elias MD,MPH - [...] today - Continue C-collar at all times, DISTRIBUTION OPERATIONS SUPERVISOR brace when OOB Please contact the Neurosurgery resident on-call pager [phone] with questions or concerns. Mary Medrano M.D., M.P.H. R2 Resident Physician Neurological Surgery Pager: [phone] signed by Mary Medrano MD,MPH at 11/06/2017 [...] Please contact the Neurosurgery resident on-call pager [phone] with questions or concerns. Mary Medrano M.D., M.P.H. R2 Resident Physician Neurological Surgery Pager: [phone] signed by Mary Medrano MD,MPH at 11/05/2017 9:12 PM PDTBaRg hoyt MD - 11/05/2017 8:37 PM PDTDictation ID: [id number] signed by Rg gordon MD at 11/05/2017 [...] Dysphagia, risk for aspiration - NPO - PORCELAIN ENAMEL SPRAYER following Resolved or chronic issues/Plan: #nutrition - TFs at goal 400 mL bolus Q5 hours, tolerating # C7 bilateral lamina fractures/ C6-T2 spinous process fractures - Neurosurgery following - Must wear DISTRIBUTION OPERATIONS SUPERVISOR when OOB, ok for C-collar only when [...] for syntethic cranioplasty Venita Pruitt PA-[place] [phone] [place] [phone] [facility] [address] [place] [facility] [phone] Associated attestation - Santos Weiss MD - 11/05/2017 1:19 PM PDTI was present and r ounded with the Advanced Practice Provider today, Venita Pruitt. I interviewed and examined t he patient. I reviewed the history, as documented today. I agree with the ASHLEY assessment a nd plan. He is undergoing cranioplasty today. [id number] Dallin Bourgeois MD - 11/04/2017 4:45 PM [...] surgery? No Dallin Bourgeois MD Neurosurgery PGY2 [id number] Moncho Vasquez MD - 4:04 PM PDT [...] Dysphagia, risk for aspiration - NPO - PORCELAIN ENAMEL SPRAYER following Resolved or chronic issues/Plan: # C7 bilateral lamina fractures/ C6-T2 spinous process fractures - Neurosurgery following - Must wear DISTRIBUTION OPERATIONS SUPERVISOR when OOB, ok for C-collar only when [...] with NSGY for crani . Please page [phone] with any questions or concerns. Moncho Wise MD Trauma PGY-1 Pager: [phone] [facility] [place] [phone] [place] [facility] [place] [address] Associated attestation - Santos Weiss MD - 11/04/2017 4:48 PM PDTI was present with the resident during the history and exam. I discussed the case with the resident and agree with the findings and plan as documented in the resident s note. SANTOS WEISS MD [facility] [address] [place] [id number] Moncho Wise MD - 11/03/2017 10:47 AM [...] Dysphagia, risk for aspiration - NPO - PORCELAIN ENAMEL SPRAYER following Resolved or chronic issues/Plan: # C7 bilateral lamina fractures/ C6-T2 spinous process fractures - Neurosurgery following - Must wear DISTRIBUTION OPERATIONS SUPERVISOR when OOB, ok for C-collar only when [...] Disposition: continue trauma [place] care. Please page [phone] with any questions or concerns. Moncho Wise MD Trauma PGY-1 Pager: [phone] [facility] [address] [place] [facility] Associated attestation - Monster Rucker MD - 11/12/2017 12:28 PM PDTATTENDING ADDENDUM I saw and examined Diogenes Temple with the residents on 11/03 and agree with the assessment a nd plan as outlined in this note and participated in the planning of care. Monster Rucker MD FACS inside sales account manager Division of Trauma, Critical Care, and Acute Care Surgery [phone] Moncho Wise MD - 11/02/2017 4:15 PM [...] Dysphagia, risk for aspiration - NPO - PORCELAIN ENAMEL SPRAYER following Resolved or chronic issues/Plan: # C7 bilateral lamina fractures/ C6-T2 spinous process fractures - Neurosurgery following - Must wear DISTRIBUTION OPERATIONS SUPERVISOR when OOB, ok for C-collar only when in bed - Will likely need for 12 weeks # [facility] now back [facility] [facility] - [...] vs auto, tolerating tube feeds. Please page [phone] with any questions or concerns. Moncho Wise MD Trauma PGY-1 Pager: [phone] [facility] [address] [place] [address] Associated attestation - Pepito Mclaughlin MD - 11/04/2017 4:31 PM PDTI saw and evaluated the p atient. I agree with the findings and the plan of care as documented in the resident s no te. Pepito Mclaughlin MD [facility] [address] [facility] [address] [place] [address] Fernando Li PA - 11/01/2017 9:50 AM [...] Patient being managed in C collar and DISTRIBUTION OPERATIONS SUPERVISOR. -Patient developed drainage from previous crani site [...] Spine immobilization. Cervical collar while in bed, DISTRIBUTION OPERATIONS SUPERVISOR when OOB anticipate duration of immobilization 12 weeks total. -Plan Synthetic cranioplasty on 11/05/2017. Stereotactic Head CT-for custom cranioplasty com pleted. Plan communicated with Primary team. Instructed to anticoagulation 24 hrs pre op. Ho ld TF midnight prior. FERNANDO LI PA-C [facility] [address] [facility] [address] [place] [address] Pg [phone] MEDICATIONS Current Facility-Administered Medications Medication acetaminophen (TYLENOL) [...] Dysphagia, risk for aspiration - NPO - PORCELAIN ENAMEL SPRAYER following Resolved or chronic issues/Plan: # C7 bilateral lamina fractures/ C6-T2 spinous process fractures - Neurosurgery following - Must wear DISTRIBUTION OPERATIONS SUPERVISOR when OOB, ok for C-collar only when [...] vs auto, tolerating tube feeds. Please page [phone] with any questions or concerns. Moncho Wise MD Trauma PGY-1 Pager: [phone] [facility] [place] [facility] [place] [address] Associated attestation - Shlomo Bravo MD - 11/06/2017 6:20 AM PDTAttending: I saw and examined Diogenes Temple ([id number]) with the residents on 11/01/2017 and agree with the assessment and plan as outlined in this note and participated in the planning of care. Shlomo Bravo MD Chair Post Machine Operator Division of Trauma and Critical [...] Dysphagia, risk for aspiration - NPO - PORCELAIN ENAMEL SPRAYER following # Infection of cranioplasty, epidural abscess [...] fractures - Neurosurgery following - Must wear DISTRIBUTION OPERATIONS SUPERVISOR when OOB, ok for C-collar only when [...] vs auto, tolerating tube feeds. Please page [phone] with any questions or concerns. Filemon Christian MD Trauma PGY-1 Pager: [phone] [facility] [place] [address] Associated attestation - Shlomo Bravo MD - 10/31/2017 10:50 AM PDTAttending: I saw and examined Diogenes Temple ([id number]) with the residents on 10/31/2017 and agree with the assessment and plan as outlined in this note and participated in the planning of care. Shlomo Bravo MD Chair Post Machine Operator Division of Trauma and Critical [...] Dysphagia, risk for aspiration - NPO - PORCELAIN ENAMEL SPRAYER following # Infection of cranioplasty, epidural abscess [...] fractures - Neurosurgery following - Must wear DISTRIBUTION OPERATIONS SUPERVISOR when OOB, ok for C-collar only when [...] and continue acute [place] care Please page [phone] with any questions or concerns. Filemon Christian MD Trauma PGY-1 Pager: [phone] [facility] & [address] [address] Associated attestation - Chaz Hernandez MD - 11/01/2017 8:41 AM PDTI have seen and exami kassie the patient, discussed the case with the resident team, and I agree with the assessment and plan as outlined in the note. I participated in formulation of the plan for care. Chaz Hernandez MD, FACS Chair Post Machine Operator, Trauma, Critical Care and Acute [...] Dysphagia, risk for aspiration - NPO - PORCELAIN ENAMEL SPRAYER following # Infection of cranioplasty, epidural abscess [...] fractures - Neurosurgery following - Must wear DISTRIBUTION OPERATIONS SUPERVISOR when OOB, ok for C-collar only when [...] continue acute [place] care Moncho Wise MD [facility] [place] [facility] [place] [address] Associated attestation - Shlomo Bravo MD - 10/30/2017 9:15 AM PDTAttending: I saw and examined Diogenes Temple ([id number]) with the residents on 10/29/2017 and agree with the assessment and plan as outlined in this note and participated in the planning of care. Shlomo Bravo MD Chair Post Machine Operator Division of Trauma and Critical [...] Dysphagia, risk for aspiration - NPO - PORCELAIN ENAMEL SPRAYER following # Infection of cranioplasty, epidural abscess [...] fractures - Neurosurgery following - Must wear DISTRIBUTION OPERATIONS SUPERVISOR when OOB, ok for C-collar only when [...] CT study of PEG. Filemon Christian MD [facility] [address] [facility] [address] Associated attestation - Shlomo Bravo MD - 10/29/2017 10:10 AM PDTAttending: I saw and examined Diogenes Temple ([id number]) with the residents on 10/28/2017 and agree with the assessment and plan as outlined in this note and participated in the planning of care. Shlomo Bravo MD Chair Post Machine Operator Division of Trauma and Critical [...] Dysphagia, risk for aspiration - NPO - PORCELAIN ENAMEL SPRAYER following # Infection of cranioplasty, epidural abscess [...] fractures - Neurosurgery following - Must wear DISTRIBUTION OPERATIONS SUPERVISOR when OOB, ok for C-collar only when [...] abdomen pelvis. Filemon Christian MD [place] [address] Associated attestation - Nubia Nieto MD,MPH - 10/27/2017 5:01 PM PDTI saw and evaluat ed the patient. I agree with the findings and the plan of care as documented in the residen t s note. CT ABD today ordered to verify gastrostomy placement. Increasing haloperidol d osing to 5mg. Nubia Nieto MD, MPH inside sales account manager Trauma, Critical Care & Acute Care [...] flap out on right, EOMI Neck: in [place] collar Respiratory: unlabored on room air CV: [...] Dysphagia, risk for aspiration - NPO - PORCELAIN ENAMEL SPRAYER following # Infection of cranioplasty,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 lungs symmetrical, equal chest wall rise, no retractions CV: RRR GI: non tender, soft, active BS, last BM 09/30 : Patient voiding without difficulty Extremities: no peripheral edema, wiggles toes and toes pink and well perfused Musculoskeletal: 5/5 hydraulic strainer operator strength on right, 3/5 hydraulic strainer operator strength on left FEN: on TPN [...] AMS & delirium - numerous evaluations by PORCELAIN ENAMEL SPRAYER with trials of PO - now s/p modified barium swallow x2 which indicates aspiration - continue NPO - PORCELAIN ENAMEL SPRAYER reports that patient working on tongue strength [...] . - C-collar at all times, use DISTRIBUTION OPERATIONS SUPERVISOR when OOB - Follow-up with Neurosurgery on 10/21 with repeat X-rays #Blunt abdominal trauma #Splenic laceration S/p laparotomies x2. Fascia closed 09/02 Wound vac removed by patient, but wound remains duke n/dry/intact. Greenwood removed 09/17. #Left hemothorax Chest tube placed [...] trauma team and [place] Pg [phone] Associated attestation - Fidelina Shields MD - 10/02/2017 4:40 PM PDTAttending: I saw and examined Diogenes Temple ([id number]) with KESHAWN Alexander on mornin g rounds 10/01/17 and agree with the assessment and plan as outlined in this note and partic ipated in the planning of care. Will trial DHT placement today, CT head unchanged. Suspect somnolence is medication side ef fect and, if persistent, may need to wean antipsychotic doses. Fidelina Shields MD Renewable Energy Division Manager Division of Trauma, Critical Care and Acute Care Surgery Office: [phone] Pager: [phone] Christian Kelley PA-C - 09/30/2017 12:21 PM [...] Fixed and dilated on left Neck: in [place] collar Respiratory: CTA bilaterally, lungs symmetrical, equal chest wall rise, no retractions CV: RRR GI: non tender, soft, active BS, last BM 09/30 : Patient voiding without difficulty Extremities: no peripheral edema, wiggles toes and toes pink and well perfused Musculoskeletal: 5/5 hydraulic strainer operator strength on right, 3/5 hydraulic strainer operator strength on left FEN: on TPN [...] AMS & delirium - numerous evaluations by PORCELAIN ENAMEL SPRAYER with trials of PO - now s/p modified barium swallow x2 which indicates aspiration - continue NPO - PORCELAIN ENAMEL SPRAYER reports that patient working on tongue strength [...] . - C-collar at all times, use DISTRIBUTION OPERATIONS SUPERVISOR when OOB - Follow-up with Neurosurgery on [...] PDTAttending: I saw and examined Diogenes Temple ([id number]) with Christian Kelley PA-C on morning rounds 09/30 and agree with the assessment and plan as outlined in this note and participated in the planning of care. Mentally slower this morning, but non-focal. Received haldol overnight for sleep. Repeat head CT was unchanged so suspect etiology of slowed responsiveness is the antipsychotic dose . PORCELAIN ENAMEL SPRAYER believes that, once collar off, may be able to take PO more effectively and thus will hold off on surgical feeding access. TPN is a temporary solution and if patient remains kaye nable will trial DHT tomorrow. Working with psychiatry for medication recommendations. Fidelina Shields MD Renewable Energy Division Manager Division of Trauma, Critical Care and Acute Care Surgery Office: [phone] Pager: [phone] July Harp PA-C - 09/30/2017 8:23 AM PDTBrief Neurosurgery Wound Check: Wound is dry, without erythema, not fluctuant. No acute swelling. Nylon in place. Will plan to follow peripherally for wound checks and remove nylons on 10/09. JULY HARP PA-C [facility] [address] [place] [address] Christian Begum PA-C - 09/29/2017 7:15 AM [...] and EOMs intact to exam Neck: in [place] collar Respiratory: CTA bilaterally, lungs symmetrical, equal [...] AMS & delirium - numerous evaluations by PORCELAIN ENAMEL SPRAYER with trials of PO - now s/p [...] . - C-collar at all times, use DISTRIBUTION OPERATIONS SUPERVISOR when OOB - Follow-up with Neurosurgery on 10/21 with repeat X-rays #Blunt abdominal trauma #Splenic laceration S/p laparotomies x2. Fascia closed 09/02 Wound vac removed by patient, but wound remains duke n/dry/intact. Greenwood removed 09/17. #Left hemothorax Chest tube placed [...] PDTAttending: I saw and examined Diogenes Temple ([id number]) with Christian Kelley PA-C on morning rounds 09/29 and agree with the assessment and plan as outlined in this note and participated in the planning of care. Late entry for 09/29/17. Persistent alterations in conscious and dysphagia. Hopefully with ongoing speech therapy a nd when clear to take c-collar off, will improve ability to take PO. While TPN is not an opt imal buttermilk drier operator strategy, would prefer not to place surgical feeding tube if possible given r elatively recent damage control laparotomy and high risk of Mr. Temple pulling it out. Have tried DHT several times and it seems to worsen delirium and he pulls it out frequently. Tit ration of haldol in conjunction with psychiatry. Fidelina Shields MD Renewable Energy Division Manager Division of Trauma, Critical Care and Acute Care Surgery Office: [phone] Pager: [phone] Christian Kelley PA-C - 09/28/2017 1:01 PM [...] he said, who, ariel? And then the WEB RETAILER helped him make a call to her. [...] and EOMs intact to exam Neck: in [place] collar Respiratory: CTA bilaterally, lungs symmetrical, equal [...] very agitated today. - EKG today with [place] QTc calculated to be 428 - optimize [...] AMS & delirium - numerous evaluations by PORCELAIN ENAMEL SPRAYER with trials of PO - now s/p [...] . - C-collar at all times, use DISTRIBUTION OPERATIONS SUPERVISOR when OOB - Follow-up with Neurosurgery on 10/21 with repeat X-rays #Blunt abdominal trauma #Splenic laceration S/p laparotomies x2. Fascia closed 09/02 Wound vac removed by patient, but wound remains duke n/dry/intact. Greenwood removed 09/17. #Left hemothorax Chest tube placed [...] able to communicate more toda y. Chaz Hrenandez MD, FACS Renewable Energy Division Manager, Trauma, Critical Care and Acute Care Surgery Chaz Hernandez MD - 09/28/2017 10:13 AM PDTTrauma Staff Seen and examined this AM with team. I have concerns abotu behaviour, as he is consistently threatening RN and ancillary staff, even attempting swings. Behavior seems worse at night. I would favor increasing night time Haldol dose, and following EKGs. Chaz Hernandez MD, FACS [employer]able [employer] Division Manager, Trauma, Critical Care and Acute Care [...] Dallin Bourgeois MD Neurosurgery PGY1 | Pager #[phone] Christian Begum PA-C - 09/27/2017 7:31 AM [...] able to have a linear conversation briefly PORCELAIN ENAMEL SPRAYER requesting repeat barium swallow Current meds: I [...] incision healing , suture c/d/I Neck: in DISTRIBUTION OPERATIONS SUPERVISOR Respiratory: unlabored on room air, lungs symmetrical, [...] AMS & delirium - numerous evaluations by PORCELAIN ENAMEL SPRAYER with trials of PO - now s/p [...] . - C-collar at all times, use DISTRIBUTION OPERATIONS SUPERVISOR when OOB - Follow-up with Neurosurgery on 10/21 with repeat X-rays #Blunt abdominal trauma #Splenic laceration S/p laparotomies x2. Fascia closed 09/02 Wound vac removed by patient, but wound remains duke n/dry/intact. Greenwood removed 09/17. #Left hemothorax Chest tube placed [...] [facility] [address] [place] [address] Christian Kelley PA-C - 09/26/2017 6:48 AM [...] posterior scalp crani incision c/d/I Neck: in [place] collar Respiratory: unlabored on room air CV: [...] AMS & delirium - numerous evaluations by PORCELAIN ENAMEL SPRAYER with trials of PO - now s/p [...] . - C-collar at all times, use DISTRIBUTION OPERATIONS SUPERVISOR when OOB - Follow-up with Neurosurgery on [...] MD [facility] [address] [place] [address] Christian Kelley PA-C - 09/25/2017 7:49 AM [...] HEENT: EOMs intact to exam Neck: in DISTRIBUTION OPERATIONS SUPERVISOR brace Respiratory: unlabored on room air CV: [...] AMS & delirium - numerous evaluations by PORCELAIN ENAMEL SPRAYER with trials of PO - now s/p [...] . - C-collar at all times, use DISTRIBUTION OPERATIONS SUPERVISOR when OOB - Follow-up with Neurosurgery on [...] MD [facility] [address] [place] [address] Christian Kelley PA-C - 09/24/2017 11:07 AM [...] with agitation Having difficulty swallowing again - PORCELAIN ENAMEL SPRAYER to re-eval and obtain barium swallow Current [...] HEENT: EOMs intact to exam Neck: in DISTRIBUTION OPERATIONS SUPERVISOR brace Respiratory: CTA bilaterally, lungs symmetrical, equal chest wall rise, no retractions CV: RRR GI: non distended, last BM 09/23 : good urine output Extremities: SCD's in place, no peripheral edema, wiggles toes and toes pink and well perfu sed Musculoskeletal: 5/5 strength in bilateral hydraulic strainer operator (but with slightly weaker on left) [...] likely 2/2 AMS & delirium - Failed PORCELAIN ENAMEL SPRAYER eval 09/19 & 09/20, made NPO & dobhoff reinserted 09/21 but pulled overnight - Per PORCELAIN ENAMEL SPRAYER on 09/21, ok for therapeutic pureed with [...] . - C-collar at all times, use DISTRIBUTION OPERATIONS SUPERVISOR when OOB - Follow-up with Neurosurgery on 10/21 with repeat X-rays #Blunt abdominal trauma #Splenic laceration S/p laparotomies x2. Fascia closed 09/02 Wound vac removed by patient, but wound remains duke n/dry/intact. Greenwood removed 09/17. #Left hemothorax Chest tube placed [...] MD [facility] [address] [place] [address] Ginette Campos PA-C - 09/24/2017 9:31 AM [...] 4 extremities Unable to assess drift. Motor: [place]isaw Operator Bicep Tricep Delt R 5 5 [...] PA-C [facility] [address] [place] [address] abriel Atkins stephanie Cleary, AGACNP - 09/23/2017 [...] hiscence, draining minimal serosang fluid Neck: in DISTRIBUTION OPERATIONS SUPERVISOR brace Respiratory: unlabored on room air CV: [...] likely 2/2 AMS & delirium - Failed PORCELAIN ENAMEL SPRAYER eval 09/19 & 09/20, made NPO & dobhoff reinserted 09/21 but pulled overnight - Per PORCELAIN ENAMEL SPRAYER on 09/21, ok for therapeutic pureed with [...] . - C-collar at all times, use DISTRIBUTION OPERATIONS SUPERVISOR when OOB - Follow-up with Neurosurgery on [...] & delir ium improves Sherine Sarmiento, [facility] Pg [phone] Dallin Deshpande MD - 09/22/2017 8:03 AM [...] Dallin Bourgeois MD Neurosurgery PGY1 | Pager #[phone] [facility] - 09/22/2017 6:52 AM PDTFormatting [...] 24hr events: - Therapeutic purees initiated by PORCELAIN ENAMEL SPRAYER yesterday - Trickle feeds via Dobbhoff, pt pulled Dobbhoff yesterday evening- not replaced - FUNERAL SERVICE LICENSEE called around 2130 for new left facial droop (see separate notes), CT revealed increa se in SDH from 12 to 17mm with no change in midline shift. [facility]am [facility] - NSG and stroke [...] sluggish. Slight left facial droop Neck: in [place] collar Respiratory: unlabored on room air CV: [...] likely 2/2 AMS & delirium - Failed PORCELAIN ENAMEL SPRAYER eval 09/19 & 09/20, made NPO & dobhoff reinserted 09/21 but pulled overnight - Per PORCELAIN ENAMEL SPRAYER on 09/21, ok for therapeutic pureed with [...] . - C-collar at all times, use DISTRIBUTION OPERATIONS SUPERVISOR when OOB - Follow-up with Neurosurgery on 10/21 with repeat X-rays #Blunt abdominal trauma #Splenic laceration S/p laparotomies x2. Fascia closed 09/02 Wound vac removed by patient, but wound remains duke n/dry/intact. Greenwood removed 09/17. #Left hemothorax Chest tube placed [...] dysphagia & delirium improves Sherine Sarmiento, [facility] Pg [phone] Associated attestation - Nubia Nieto MD,MPH - 09/22/2017 9:39 PM PDTATTENDING PROGRES S NOTE I personally interviewed and examined the patient today with the trauma team and the nurse practitioner. I participated in the development of and agree with the assessment and plan a s [facility]. Adding seroquel qHS for sleep hygiene. Nubia Nieto MD, MPH Trauma, Critical Care & Acute Care Surgery [facility] [phone] Sami Black C - 09/21/2017 10:25 PM [...] in the morning. Plan: -neuro checks; page [phone] for any decline in neurological examination -pain control -Hard C collar at all times and place DISTRIBUTION OPERATIONS SUPERVISOR prior to mobilizing OOB. Anticipated duration of Collar/DISTRIBUTION OPERATIONS SUPERVISOR is 12 weeks -repeat CT head for any new decline in neurological exam and page [phone] -NPO at midnight tonight -please hold tonight's planned dose of Lovenox -further recommendations in the morning Sami Black MD, PhD PGY-3 Resident Neurosurgery [id number] signed by Sami Black at 09/21/2017 10:50 PM [facility] - 09/21/2017 7:10 AM PDTFormatting [...] Provena placem ent 24hr events: - Failed PORCELAIN ENAMEL SPRAYER eval again yest morning, continued NPO - [...] reactive. Dobbhoff tube in place Neck: in [place] collar Respiratory: unlabored on room air CV: [...] likely 2/2 AMS & delirium - Failed PORCELAIN ENAMEL SPRAYER eval 09/19 & 09/20, made NPO & dobhoff reinserted yesterday - Trickle feeds started this am at 20ml/hr, increase very slowly by 10ml every 12 hrs to go al of 75 due to hx of mesenteric hematomas and previous inability to tolerate TF - Per PORCELAIN ENAMEL SPRAYER today, ok for therapeutic pureed with nectar [...] . - C-collar at all times, use DISTRIBUTION OPERATIONS SUPERVISOR when OOB - Follow-up with Neurosurgery on [...] & delirium [place]g [phone] Associated attestation - Fidelina Shields MD - 09/21/2017 9:36 PM PDTAttending: I saw and examined Diogenes Temple ([id number]) with KESHAWN Alexander on mornin g rounds [...] enough to re-trial PO. Fidelina Shields MD Renewable Energy Division Manager Division of Trauma, Critical Care and Acute Care Surgery Office: [phone] Pager: [phone] Sherine Sarmiento AGACNP - 09/20/2017 7:41 AM [...] haldol given yesterday afternoon for agitation - PORCELAIN ENAMEL SPRAYER paged to re-eval in afternoon after concern for aspiration, made NPO by PORCELAIN ENAMEL SPRAYER - DARNELL SOLANO Current meds: I have [...] right pupil 3 and reactive Neck: in [place] collar Respiratory: unlabored on room air CV: [...] thick/pureed d iet. Made NPO yesterday by PORCELAIN ENAMEL SPRAYER after concern for aspiration. This is likely 2/2 waxing & wan ing delirium & AMS - PORCELAIN ENAMEL SPRAYER re-eval today recommend continue NPO d/t overt clinical signs of aspiration - Place Dobbhoff tube and restart feeds, slowly progress to goal - Stop TPN when tolerating tube feeds - PORCELAIN ENAMEL SPRAYER will follow closely, as his AMS improves [...] . - C-collar at all times, use DISTRIBUTION OPERATIONS SUPERVISOR when OOB - Follow-up with Neurosurgery on [...] & delirium [place]g [phone] Associated attestation - Fidelina Shields MD - 09/20/2017 9:34 PM PDTAttending: I saw and examined Diogenes Temple ([id number]) with KESHAWN Alexander on mornin g rounds [...] dispo planning when able. Fidelina Shields MD Renewable Energy Division Manager Division of Trauma, Critical Care and Acute Care Surgery Office: [phone] Pager: [phone] Mary Medrano MD,MPH - 09/19/2017 6:22 AM [...] downgraded from thin to thick liquids by PORCELAIN ENAMEL SPRAYER Current meds: I have independently reviewed current [...] intact, small Right fluctuant pseudomeningocele Neck: in [place] collar Respiratory: unlabored on room air CV: [...] DHT on09/19. - Cleared for diet by PORCELAIN ENAMEL SPRAYER, tolerating purees, 749 Calories yesterday - Restart Calorie count: if taking >700 again will be OK for full po diet, otherwise replac e DHT and restart TF - Stop TPN tomorrow regardless - Still considering repeat CT abdomen/pelvis #Dysphagia DHTreplaced overnight 09/07. TF held due to emesis and possible ileus, aspiration risk. DH T pulled overnight on 09/18 - PORCELAIN ENAMEL SPRAYER as able Resolved or chronic issues/Plan: #BIG 3 TBI #Right synthetic cranioplasty Neurosurgery consulted. Non-operative management. Last head CT 09/12 stable. Expected pseudo meningocele. Left-sided deficits consistent with baseline. - Stat head CT for any neurologic decline #C7 bilateral lamina fractures #C6-T2 spinous process fractures Neurosurgery consulted. Non-operative management. Upright cervical X-rays completed on 09/14 . - C-collar at all times, use DISTRIBUTION OPERATIONS SUPERVISOR when OOB - Follow-up with Neurosurgery on 10/21 with repeat X-rays #Blunt abdominal trauma #Splenic laceration S/p laparotomies x2. Fascia closed 09/02 Wound vac removed by patient, but wound remains duke n/dry/intact. Greenwood removed 09/17. #Left hemothorax Chest tube placed [...] M.D., M.P.H. Neurological Surgery Resident PGY-1 Pager: [phone] Associated attestation - Fidelina Shields MD - 09/19/2017 1:36 PM PDTAttending: I saw and examined Diogenes Temple ([id number]) with the residents on morning rounds 09/19/17 and agree with the assessment and plan as outlined in this note and participated in the plan aashish of care. Improving po intake, will titrate TPN. Plan to DC TPN tomorrow and transition to PO vs PO + TF depending on calorie counts. Once of restraints will begin looking for placement. Fidelina Shields MD Renewable Energy Division Manager Division of Trauma, Critical Care and Acute Care Surgery Office: [phone] Pager: [phone] Mary Medraon MD,MPH - 09/18/2017 6:17 AM PDTTrauma Acute [...] fluctuant pseudomeningocele,Dobhoff tubein p lace Neck: in [place] collar Respiratory: unlabored on room air CV: [...] holding TF - Cleared for diet by PORCELAIN ENAMEL SPRAYER, tolerating small quantities of purees - Will need repeat CT A/P within 1-2 days #Hypervolemia I&O approaching even. Appears to have been auto-diuresing. - Continue to monitor urine output - Monitor electrolytes, replete prn #Dysphagia DHTreplaced overnight 09/07. TF held due to emesis and possible ileus, aspiration risk. - PORCELAIN ENAMEL SPRAYER as able #C7 bilateral lamina fractures #C6-T2 spinous process fractures Neurosurgery consulted. Non-operative management. Upright cervical X-rays completed on 09/14 . - C-collar at all times, use DISTRIBUTION OPERATIONS SUPERVISOR when OOB - Follow-up with Neurosurgery on [...] by patient, but wound remains duke n/dry/intact. Greenwood removed 09/17. #Left hemothorax Chest tube placed [...] M.D., M.P.H. Neurological Surgery Resident PGY-1 Pager: [phone] signed by Fidelina Shields MD at 09/19/2017 3:58 PM PDT Associated attestation - Fidelina Shields MD - 09/19/2017 3:58 PM PDTAttending: I saw and examined Diogenes Temple ([id number]) with the residents on morning rounds 09/18/17 and agree with the assessment and plan as outlined in this note and participated in the plan aashish of care. Fidelina Shields MD Renewable Energy Division Manager Division of Trauma, Critical Care and Acute Care Surgery Office: [phone] Pager: [phone] Mary Medrano MD,MPH - 09/17/2017 6:26 AM [...] fluctuant pseudomeningocele,Dobhoff tubein p lace Neck: in [place] collar Respiratory: unlabored on room air CV: [...] holding TF - Cleared for diet by PORCELAIN ENAMEL SPRAYER, tolerating small quantities of purees #Hypervolemia I&O approaching even. Appears to have been auto-diuresing. - Continue to monitor urine output - Monitor electrolytes, replete prn #Dysphagia DHTreplaced overnight 09/07. TF held due to emesis and possible ileus, aspiration risk. - PORCELAIN ENAMEL SPRAYER as able #C7 bilateral lamina fractures #C6-T2 spinous process fractures Neurosurgery consulted. Non-operative management. Upright cervical X-rays completed on 09/14 . - C-collar at all times, use DISTRIBUTION OPERATIONS SUPERVISOR when OOB - Follow-up with Neurosurgery on [...] M.D., M.P.H. Neurological Surgery Resident PGY-1 Pager: [phone] signed by Fidelina Shields MD at 09/17/2017 2:29 PM PDT Associated attestation - Fidelina Shields MD - 09/17/2017 2:29 PM PDTAttending: I saw and examined Diogenes Temple ([id number]) with the residents on morning rounds 09/17/17 [...] repeat C T abdomen/pelvis. Fidelina Shields MD Renewable Energy Division Manager Division of Trauma, Critical Care and Acute Care Surgery Office: [phone] Pager: [phone] Venita Pruitt PA-C - 09/16/2017 6:45 AM [...] HEENT: DHT in place, CARRI Neck: in [place] collar Respiratory: CTA bilaterally, lungs symmetrical, equal [...] daily - Haldol 5mg q12hr prn - PORCELAIN ENAMEL SPRAYER: severe cognitive deficits - continue PORCELAIN ENAMEL SPRAYER therapy #Bilious emesis #Ileus #Aspiration #Leukocytosis - bilious emesis overnight, trickle tube feeds stopped; will restart tube feeds slowly this afternoon and determine tolerance - hx of ileus during hospitalization, NG removed 09/14 - Strict NPO per PORCELAIN ENAMEL SPRAYER - Bowel meds via DHT - TPN continued #Hypervolemia I&O approaching even. Appears to have been auto-diuresing. - Continue to monitor urine output - Monitor electrolytes, replete prn #Dysphagia DHTreplaced overnight 09/07/17. TF held for bilious vomiting last night - PORCELAIN ENAMEL SPRAYER as able - eval from 09/13 with oropharyngeal dysphagia - strict NPO #C7 bilateral lamina fractures #C6-T2 spinous process fractures Neurosurgery consulted. Non-operative management. - C-collar at all times, use DISTRIBUTION OPERATIONS SUPERVISOR when OOB - Upright films in DISTRIBUTION OPERATIONS SUPERVISOR completed yesterday - follow up in 6 [...] need eventual placement. Venita Pruitt [place] [phone] [facility] [place] [address] [phone] Associated attestation - Fidelina Shields MD - 09/17/2017 3:42 PM PDTAttending: I saw and examined Diogenes Temple with Venita Pruitt PA-C on morning rounds 09/16/17 and ag ree with the assessment and plan as outlined in this note and participated in the planning o f care. Ileus precludes advancing tube feeds. Will allow po as tolerated and continue tpn. Fidelina Shields MD Renewable Energy Division Manager Division of Trauma, Critical Care and Acute Care Surgery Office: [phone] Pager: [phone] Dallin Bourgeois MD - 09/15/2017 12:06 PM [...] Mr. Temple. Dallin Bourgeois MD Neurosurgery PGY1 [id number] signed by Dallin Bourgeois MD at 09/15/2017 [...] tube in place and EOMI Neck: in [place] collar Respiratory: CTA bilaterally, lungs symmetrical, equal [...] daily - Haldol 5mg q12hr prn - PORCELAIN ENAMEL SPRAYER: severe cognitive deficits - continue PORCELAIN ENAMEL SPRAYER therapy #Bilious emesis #Ileus #Aspiration #Leukocytosis On [...] resolving ileus - trickle feeds per senior clinical project manager recommendations started today - TPN [...] emesis and possible ileus, aspiration risk. - PORCELAIN ENAMEL SPRAYER as able - eval from 09/13 with oropharyngeal dysphagia - strict NPO #C7 bilateral lamina fractures #C6-T2 spinous process fractures Neurosurgery consulted. Non-operative management. - C-collar at all times, use DISTRIBUTION OPERATIONS SUPERVISOR when OOB - Upright films in DISTRIBUTION OPERATIONS SUPERVISOR completed yesterday - will notify NSG for [...] alcohol withdrawal and using olanzapine and haldol. PORCELAIN ENAMEL SPRAYER will reeval to day. Continue strict NPO and will start TPN. Off abx. EM CUNNINGHAM MD [facility] [address] [place] [address] Mary Medrano MD,MPH - 09/14/2017 6:39 AM [...] fluctuant pseudomeningocele,Dobhoff tubein p lace Neck: in [place] collar Respiratory: sats stable room air, unlabored, [...] emesis and possible ileus, aspiration risk. - PORCELAIN ENAMEL SPRAYER as able #C7 bilateral lamina fractures #C6-T2 spinous process fractures Neurosurgery consulted. Non-operative management. - C-collar at all times, use DISTRIBUTION OPERATIONS SUPERVISOR when OOB - Upright films in DISTRIBUTION OPERATIONS SUPERVISOR when able Resolved or chronic issues/Plan: #BIG [...] M.D., M.P.H. Neurological Surgery Resident PGY-1 Pager: [phone] signed by Shlomo Bravo MD at 09/16/2017 11:14 AM PDT Associated attestation - Shlomo Bravo MD - 09/16/2017 11:14 AM PDTFormatting of this note m ight be different from the original. I saw and examined Diogenes Temple ([id number]) with the TRAUMA team on 09/14/2017. I [...] shock, initial encounter (HCC) Shlomo Bravo MD Chair Post Machine Operator Division of Trauma and Critical [...] NG tub es in place Neck: in [place] collar Respiratory: sats stable room air, unlabored, [...] emesis and possible ileus, aspiration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 [address] | [address] | | + + + + + [...] | + + + + + | [facility] | [address] | [place] [address] | | | NATALEE WORTHINGTON | VILMA [...] + | [facility] - | [address] | [place] [address] | | | [facility] | | | | + [...] + | [facility] | [address] | [place] [address] | | | SERVICES, CORE | [address] [...] [facility] | [address] | [place] [address] | | | NATALEE WORTHINGTON | VILMA [...] [facility] | [address] | [place] [address] | | | SERVICES, CORE | [address] [...] | | | LABORATORY | | | ESTONIAN | | | SERVICES, | | | [...] CENTER LABORATORY | [address] | [place] [address] | | | SERVICES, CORE | [address] | | | + + + + + MAGNESIUM, PLASMA (11/11/2017 9:06 AM PDT) + +-------+ + + + | Component | Value | Ref Range | Performed | Pathologist | | | | | At | Signature | + +-------+ + + + | MAGNESIUM,P | 2.1 | 1.6 - 2.6 mg/dL | [facility] | | | LASMA | | | [...] [facility] | [address] | [place] [address] | | | SERVICES, NATALEE | VILMA [...] [facility] LAB[facility]ORY | [address] | [place] [address] | | | NATALEE WORTHINGTON | [address] [...] | | | LABORATORY | | | ESTONIAN | | | SERVICES, | | | [...] [facility] | [address] | [place] [address] | | | SERVICES, CORE | P[address] [...] | | CARDIOLOGY | [address] | [address] | | + + + + + [...] | + + + + + | [facility] | [address] | [place] [address] | | | NATALEE WORTHINGTON | PARK [...] | | | LABORATORY | | | ESTONIAN | | | SERVICES, | | | [...] [facility] | [address] | [place] [address] | | | SERVICES, CORE | [address] [...] [facility] | [address] | [place] [address] | | | SERVICES, CORE | PARK [...] | | | LABORATORY | | | ESTONIAN | | | SERVICES, | | | [...] [facility] | [address] | [place] [address] | | | SERVICES, [facility] | [address] | | | + + + + + CT HEAD WO CONTRAST (11/08/2017 2:14 PM PDT) + + | Specimen | + + | | + + + + + | Narrative | Performed At | + + + | EXAM: CT HEAD WITHOUT CONTRAST HISTORY: left side hemineglect | [facility] | | COMPARISON: Outside head CT [...] Note | + + | Service Account, [employer] In Interface - 11/08/2017 2:31 PM [...] [facility] | [address] | [place] [address] | | | SERVICES, CORE [...] | | | LABORATORY | | | ESTONIAN | | | SERVICES, | | | [...] the MDRD equation recommended by the | MDSU | | National Kidney Disease Education Program. [...] [facility] LAB[facility]ORY | [address] | [place] [address] | | | NATALEE WORTHINGTON | VILMA [...] + | [facility] | [address] | [place], [place] | | | CARDIOLOGY | [address] | [address] | | + + + + + [...] OF | [address] | [place], [place] | | | CARDIOLOGY | [address] | [address] | | + + + + + [...] | | | LABORATORY | | | ESTONIAN | | | SERVICES, | | | [...] | + + + + + | [employer] | [address] | [place] [address] | | | NATALEE WORTHINGTON | VILMA [...] CENTER LABORATORY | [address] | [place] [address] | | | NATALEE WORTHINGTON | [address] [...] + + + + | PRODUCT | [id number] | | [facility] | | | UNIT [...] + + + + | EXPIRATION | [id number] | | [facility] | | | DATE [...] + + + + | BLOOD | [id number] | | [facility] | | | PRODUCT [...] [facility] | [address] | [place] [address] | | | SERVICES, | [address] [...] + + + + | PRODUCT | [id number] | | [facility] | | | UNIT [...] + + + + | EXPIRATION | [id number] | | [facility] | | | DATE [...] + + + + | BLOOD | [id number] | | [facility] | | | PRODUCT [...] | [address] | [place] [address] | | | SERVICES, | [address] [...] CENTER LABORATORY | [address] | [place] [address] | | | SERVICES, CORE | [address] [...] [facility] | [address] | [place] [address] | | | SERVICES, CORE | V[address] [...] | | | LABORATORY | | | ESTONIAN | | | SERVICES, | | | [...] | + + + + + | [facility] | [address] | [place] [address] | | | SERVICES, NATALEE | [address] | | | + + + + + OPERATION RECORD (11/06/2017 12:27 AM PDT) + + | Procedure Note | + + | Magdiel Stock MD - 11/06/2017 12:27 AM PDT Date of Service: 11/05/2017 Attending | | Surgeon: Magdiel Stock MD Security System Installer(s): Rg Aiken MD | | Preoperative Diagnoses: [...] his head was placed in a horseshoe clinical trial head with his C-collar still | | [...] the incision down to the cranium. Once kake | | skull was reached circumferentially around the prior incision, a #1 [place] was used | | to subperiosteally dissect [...] | [facility] [id number] [place], [place] | | [id number] Orina, MDJB/TAHIRLDD: 11/05/2017 20:38:01DT: 11/06/2017 | | 00:27:33Job #: [id number] | |HATTIE/DUC | | | | | | /[id number] | + + CT HEAD WO CONTRAST [...] Surgeon: Magdiel | | | MD [employer] System Installer: Rg Aiken MD Pre-op Diagnosis: | | [...] PGY-4 Neurological Surgery Pager | | | [phone] | | + + + CAPILLARY BLOOD [...] | [address] | [place], [place] | | | GLORIA GENAO OF GM | [facility] | [address] | | | TESTS | | | [...] - [facility] | [address] | [place], [place] | | | [facility]ARE | [address] | [address] | | | TESTS | | | [...] [facility] | [address] | [place] [address] | | | NATALEE WORTHINGTON | VILMA [...] CENTER LAB[facility]ORY | [address] | [place] [address] | | | ELIN, NATALEE | VILMA [...] | | | LABORATORY | | | ESTONIAN | | | SERVICES, | | | [...] [facility] | [address] | [place] [address] | | | SERVICES, CORE | PARK [...] [facility] | [address] | [place] [address] | | | ELIN, NATALEE | VILMA [...] + + + + | PRODUCT | [id number] | | [facility] | | | UNIT [...] + + + + | EXPIRATION | [id number] | | [facility] | | | DATE [...] + + + + | BLOOD | [id number] | | [facility] | | | PRODUCT [...] [facility] | [address] | [place] [address] | | | SERVICES, | [address] [...] + + + + | PRODUCT | [id number] | | [facility] | | | UNIT [...] + + + + | EXPIRATION | [id number] | | [facility] | | | DATE [...] + + + + | BLOOD | [id number] | | [facility] | | | PRODUCT [...] [facility] | [address] | [place] [address] | | | SERVICES, | [address] [...] [facility] | [address] | [place] [address] | | | SERVICES, CORE | PARK [...] | + + + + + | [facility] | [address] | [place] [address] | | | SERVICES, | [address] [...] CENTER LAB[facility]ORY | [address] | [place] [address] | | | SERVICES, | [address] [...] CENTER LABORATORY | [address] | [place] [address] | | | ELIN, NATALEE | VILMA [...] OF | [address] | [place], [place] | | | CARDIOLOGY | [address] | [address] | | + + + + + [...] LABORATORY | [address] | [place] [address] | | | SERVICES, CORE | PARK [...] [facility] | [address] | [place] [address] | | | SERVICES, NATALEE | PARK [...] | + + + + + | [facility] - | [address] | [place] [address] | | | [place] | | | [...] [facility] | [address] | [place] [address] | | | SERVICES, CORE | PARK [...] (L) | 3.5 - 4.7 g/dL | [facility] | | | PLASMA | | | [...] [facility] | [address] | [place] [address] | | | SERVICES, CORE [...] | | | LABORATORY | | | ESTONIAN | | | SERVICES, | | | [...] [facility] | [address] | [place] [address] | | | SERVICES, CORE | VILMA [...] CENTER LAB[facility]ORY | [address] | [place] [address] | | | SERVICES, CORE | [address] | | | + + + + + MAGNESIUM, PLASMA (11/03/2017 4:39 AM PDT) + +-------+ + + + | Component | Value | Ref Range | Performed | Pathologist | | | | | At | Signature | + +-------+ + + + | MAGNESIUM,P | 2.0 | 1.6 - 2.6 mg/dL | [facility] | | | [facility] | | | [...] [facility] | [address] | [place] [address] | | | SERVICES, CORE | PARK [...] | | | LABORATORY | | | ESTONIAN | | | SERVICES, | | | [...] [facility] | [address] | [place] [address] | | | NATALEE WORTHINGTON | VILMA [...] | + + + + + | [facility] | [address] | [place] [address] | | | SERVICES, NATALEE | VILMA [...] | | | LABORATORY | | | ESTONIAN | | | SERVICES, | | | [...] [facility] | [address] | [place] [address] | | | SERVICES, CORE | VILMA [...] | | CARDIOLOGY | [address] | [address] | | + + + + + [...] CENTER [facility] | [address] | [place] [address] | | | SERVICES, NATALEE | PARK [...] | | | LABORATORY | | | ESTONIAN | | | SERVICES, | | | [...] | + + + + + | [facility] | [address] | [place] [address] | | | SERVICES, CORE | VILMA [...] + + | [facility] | [address] | [place], [place] | | | CARDIOLOGY | [address] | [address] | | + + + + + [...] | | | LABORATORY | | | ESTONIAN | | | SERVICES, | | | [...] [facility] | [address] | [place] [address] | | | SERVICES, CORE | VILMA [...] CENTER LABORATORY | [address] | [place] [address] | | | SERVICES, CORE | VILMA [...] | | GLORIA GENAO [facility] CARE | [address] | [address] | | | TESTS | | | [...] | [facility] | [address] | [place] [address] | | | SERVICES, CORE | PARK [...] | | | LABORATORY | | | ESTONIAN | | | SERVICES, | | | [...] [facility] | [address] | [place] [address] | | | [facility] | [address] | [...] Note | + + | Service Account, D[employer] In Interface - 10/29/2017 12:13 PM [...] | | [facility] | [address] | [address] | | | TESTS | | | [...] [facility]ENTER [facility] | [address] | [place] [address] | | | SERVICES, NATALEE | PARK [...] | | | LABORATORY | | | ESTONIAN | | | SERVICES, | | | [...] | + + + + + | [facility] | [address] | [place] [address] | | | SERVICES, CORE | PARK [...] | [address] | [place] | | | GLORIA GENAO OF CARE | [address] | [address] | | | TESTS | | | [...] DEPT OF | [address] | [place], [place] | | | CARDIOLOGY | [address] | [address] | | + + + + + [...] | | [facility] | [address] | [address] | | | TESTS | | | [...] | [place] | | | [facility] | [address] | [address] | | | TESTS | | | [...] LABORATORY | [address] | [place] [address] | | | SERVICES, NATALEE | VILMA [...] | + + + + + | [facility] - | [address] | [place] [address] | | | [facility] | | | | + [...] [facility] | [address] | [place] [address] | | | SERVICES, CORE | PARK [...] [facility] | [address] | [place] [address] | | | NATALEE WORTHINGTON | PARK [...] | [facility] | [address] | [place] [address] | | | SERVICES, CORE | VILMA [...] | | | LABORATORY | | | ESTONIAN | | | SERVICES, | | | [...] CENTER LAB[facility]ORY | [address] | [place] [address] | | | ELIN, NATALEE | [address] | | | + + + + + MAGNESIUM, PLASMA (10/28/2017 5:29 AM PDT) + +-------+ + + + | Component | Value | Ref Range | Performed | Pathologist | | | | | At | Signature | + +-------+ + + + | MAGNESIUM,P | 1.8 | 1.6 - 2.6 mg/dL | [facility] | | | [facility] | | | [...] [facility] | [address] | [place] [address] | | | NATALEE WORTHINGTON | VILMA [...] | [address] | [place], [place] | | | GLORIA GENAO OF [employer] | [facility] | [address] | | | TESTS | | | [...] + + + | [facility] | [address] | [place], [place] | | | [facility] | [address] | [address] | | | TESTS | | | [...] correct | | | patient, procedure, equipment, network diagnostic support specialist and site/side marked as | [...] vein. Catheter lot number: | | | [id number] with a length of 55 cm was [...] | [address] | [place], [place] | | | GL[facility]IA GENAO [facility] CARE | [address] | [address] | | | TESTS | | | [...] | | CARDIOLOGY | [address] | [address] | | + + + + + [...] [facility] | [address] | [place] | | | GLORIA GENAO OF CARE | [facility] | [address] | | | TESTS | | | [...] [facility] | [address] | [place] [address] | | | NATALEE WORTHINGTON | VILMA [...] | | | LABORATORY | | | ESTONIAN | | | SERVICES, | | | [...] | [facility] | [address] [facility] | [place] [address] | | | SERVICES, CORE | VILMA [...] [facility] | [address] | [place], [place] | | | GLORIA GENAO OF CARE | [facility] | [address] | | | TESTS | | | [...] | [address] | [place] | | | [facility] | [address] | [address] | | | TESTS | | | [...] | GLORIA GENAO OF GM | [facility] | [address] | | | TESTS | | | [...] | [facility] | [address] | [place] [address] | | | SERVICES, CORE | VILMA [...] | | | LABORATORY | | | ESTONIAN | | | SERVICES, | | | [...] CENTER LAB[facility]ATORY | [address] | [place] [address] | | | SERVICES, CORE | VILMA [...] (H) | 70 - 99 mg/dL | [facility] - | | | GLUCOSE, | | [...] | [address] | [place] | | | [facility] | [address] | [address] | | | TESTS | | | [...] | | | LABORATORY | | | ESTONIAN | | | SERVICES, | | | [...] [facility] | [address] | [place] [address] | | | SERVICES, CORE | PARK [...] | [address] | [place] | | | [facility] GENAO OF CARE | [address] | [address] | | | TESTS | | | [...] DEPT OF | [address] | [place], [place] | | | CARDIOLOGY | [facility] | [address] | | + + + + + [...] - [facility] | [address] | [place] | | | [facility]ARE | [address] | [address] | | | TESTS | | | [...] | | CARDIOLOGY | [address] | [address] | | + + + + + CALCIUM, IONIZED, WHOLE BLOOD (10/24/2017 4:58 PM PDT) + + + + + + | Component | Value | Ref Range | Performed | Pathologist | | | | | At | Signature | + + + + + + | MAHOGAYN ICA, | 1.13 (L) | 1.14 - [...] [facility] | [address] | [place] [address] | | | SERVICES, CORE | VILMA [...] + | [facility] - | [address] | [place] [address] | | | [place] | | | [...] [facility] | [address] | [place] [address] | | | NATALEE WORTHINGTON | VILMA [...] [facility] | [address] | [place] [address] | | | SERVICES, CORE | [address] | | | + + + + + TRIGLYCERIDES, PLASMA (10/24/2017 4:45 PM PDT) + +-------+ + + + | Component | Value | Ref Range | Performed | Pathologist | | | | | At | Signature | + +-------+ + + + | TRIGLYCERID | 93 | <150 mg/dL | [facility] | | | ES | | | [...] LABORATORY | [address] | [place] [address] | | | SERVICES, CORE | PARK [...] | + + + + + | [email or web address] | [address] | [place] [address] | | | SERVICES, CORE | VILMA [...] LABORATORY | [address] | [place] [address] | | | SERVICES, CORE | VILMA [...] + + | [facility] | [address] | [place] [address] | | | SERVICES, CORE | VILMA [...] [facility] | [address] | [place] [address] | | | SERVICES, CORE | PARK [...] + + | [facility] | [address] | [place] [address] | | | SERVICES, CORE | PARK [...] [facility] | [address] | [place] [address] | | | SERVICES, CORE | VILMA [...] [facility] | [address] | [place] [address] | | | SERVICES, CORE | VILMA [...] | | | LABORATORY | | | ESTONIAN | | | SERVICES, | | | [...] + + | [facility] | [address] | [place] [address] | | | SERVICES, CORE | PARK [...] | | | correct patient, procedure, equipment, network diagnostic support specialist and site/side | | | [...] | area Basilic vein. Catheter lot number: [id number] with a length of 55 | | [...] + + + | [facility] | [address] | [place] | | | GLORIA GENAO OF [facility] | [address] | [address] | | | TESTS | | | [...] | | Surgical Critical Care, PGY7 Pager: [phone] | | + + + CAPILLARY BLOOD [...] | | [facility]ARE | [address] | [address] | | | TESTS | | | [...] - [facility] | [address] | [place] | | | [facility] [facility] | [address] | [address] | | | TESTS | | | [...] | | | LABORATORY | | | ESTONIAN | | | SERVICES, | | | [...] CENTER LAB[facility]ATORY | [address] | [place] [address] | | | SERVICES, CORE | [address] | | | + + + + + MAGNESIUM, PLASMA (10/24/2017 5:08 AM PDT) + +-------+ + + + | Component | Value | Ref Range | Performed | Pathologist | | | | | At | Signature | + +-------+ + + + | MAGNESIUM,P | 1.7 | 1.6 - 2.6 mg/dL | [facility] | | | [facility] | | | [...] [facility] | [address] | [place] [address] | | | ELIN, NATALEE | VIL[address] [...] | [address] | [place] | | | [facility] | [facility] | [address] | | | TESTS | | | [...] [facility] | [address] | [place] [address] | | | SERVICES, CORE | [address]ARK [...] | | | LABORATORY | | | ESTONIAN | | | SERVICES, | | | [...] + + | [facility] | [address] | [place] [address] | | | NATALEE WORTHINGTON | VILMA [...] [place] | | | CARDIOLOGY | [address] | [address] | | + + + + + IR GASTROSTOMY TUBE EXCHANGE (10/22/2017 2:42 PM PDT) + + | Specimen | + + | | + + + + + | Narrative | Performed At | + + + | Procedure: Gastrostomy tube exchange Primary attending | [facility] | | underwriting sales representative: Shade Nix M.D. Preoperative diagnosis: | RADIOLOGY VOICE | | Malfunctioning Gastrostomy tube Postoperative diagnosis: Same | RECOGNITION | | Operations: Operation 1. Removal of existing Gastrostomy tube | | | over a guide wire Operation 2. Placement of 24 Citizen [place] GABRIEL | | | gastrostomy over guide [...] a stiff glide wire the new 24 [place] gastrostomy tube was | | | inserted. [...] Procedure: | | Gastrostomy tube exchangePrimary attending underwriting sales representative: Shade Nix | | BrynPreoperative diagnosis: Malfunctioning Gastrostomy tubePostoperative diagnosis: | | SameOperations:Operation 1. Removal of existing Gastrostomy tube over a guide | | wireOperation 2. Placement of 24 Citizen [place] GABRIEL gastrostomy over guide wireNo sedation was [...] glide wire the | | new 24 Citizen [place] gastrostomy tube was inserted. The position of [...] stiff g lide wire the new 24 [place] | |gastrostomy tube was inserted. The position [...] Note | + + | Service Account, Heribertomarshallindex Res In Interface - 10/22/2017 10:34 AM [...] [place] | | | CARDIOLOGY | [address] | [address] | | + + + + + [...] [facility] | [address] | [place] [address] | | | NATALEE WORTHINGTON | VILMA [...] | | | LABORATORY | | | ESTONIAN | | | SERVICES, | | | [...] | [facility] | [address] | [place] [address] | | | SERVICES, NATALEE | VILMA [...] | | CARDIOLOGY | [address] | [address] | | + + + + + [...] | | | LABORATORY | | | ESTONIAN | | | SERVICES, | | | [...] | [facility] | [address] | [place] [address] | | | NATALEE WORTHINGTON | VILMA [...] | + + + + + | [facility] | [address] | [place] [address] | | | SERVICES, CORE | [address]ARK [...] [facility] OF | [address] | [place], [place] | | | CARDIOLOGY | [facility] | [address] | | + + + + + [...] LABORATORY | [address] | [place] [address] | | | SERVICES, CORE | VILMA [...] | | | LABORATORY | | | ESTONIAN | | | SERVICES, | | | [...] [facility] | [address] | [place] [address] | | | SERVICES, CORE | VILMA [...] | | CARDIOLOGY | [address] | [address] | | + + + + + [...] | | | LABORATORY | | | ESTONIAN | | | SERVICES, | | | [...] [facility] | [address] | [place] [address] | | | SERVICES, CORE | VILMA [...] [facility] | [address] | [place] [address] | | | SERVICES, CORE | VILMA [...] + | [facility] | [address] | [place], [place] | | | CARDIOLOGY | [address] | [address] | | + + + + + [...] | | | LABORATORY | | | ESTONIAN | | | SERVICES, | | | [...] [facility] | [address] | [place] [address] | | | SERVICES, CORE | [address]ARK [...] CENTER LABORATORY | [address] | [place] [address] | | | NATALEE WORTHINGTON | VILMA [...] Note | + + | Service Account, [employer] In Interface - 10/15/2017 3:58 PM PDT [...] [place] | | | CARDIOLOGY | [address] | [address] | | + + + + + [...] [facility] | [address] | [place], [place] | | | GLORIA GENAO OF [facility] | [address] | [address] | | | TESTS | | | [...] [facility] | [address] | [place] [address] | | | NATALEE WORTHINGTON | VILMA [...] | | [facility] | [address] | [address] | | | TESTS | | | [...] | | CARDIOLOGY | [address] | [address] | | + + + + + [...] [facility] | [address] | [place] [address] | | | SERVICES, CORE | [address]ARK [...] | | | LABORATORY | | | ESTONIAN | | | SERVICES, | | | [...] CENTER LAB[facility]ORY | [address] | [place] [address] | | | SERVICES, CORE | [address] | | | + + + + + MAGNESIUM, PLASMA (10/14/2017 4:53 AM PDT) + +-------+ + + + | Component | Value | Ref Range | Performed | Pathologist | | | | | At | Signature | + +-------+ + + + | MAGNESIUM,P | 1.7 | 1.6 - 2.6 mg/dL | MD[facility]ANIEL[facility] | | | LISA | | | [...] [facility] | [address] | [place] [address] | | | SERVICES, NATALEE | VILMA [...] - [facility] | [address] | [place], [place] | | | GLORIA GENAO OF CARE | [address] | [address] | | | TESTS | | | [...] | | [facility] | [address] | [address] | | | TESTS | | | [...] [facility] | [address] | [place] [address] | | | NATALEE WORTHINGTON | VILMA [...] | | | LABORATORY | | | ESTONIAN | | | SERVICES, | | | [...] [facility] | [address] | [place] [address] | | | NATALEE WORTHINGTON | [address] | | | + + + + + OPERATION RECORD (10/12/2017 8:50 PM PDT) + + | Procedure Note | + + | Pilar Cotto MD - 10/12/2017 8:50 PM PDT Date of Service: 10/12/2017 | | Attending Surgeon: Chaz Hernandez MD Security System Installer(s): Randell Dixon M.D., | | fellow. George [...] saline. We then | | placed a 19-Citizen Of [place] drain deep into the abscess cavity, tracking [...] 10/12/2017 19:50:06DT: 10/12/2017 20:50:54Job #: | | [id number] | + + X-RAY PORTABLE CHEST 1 [...] [facility] | [address] | [place], [place] | | | GLORIA GENAO OF CARE | [address] | [address] | | | TESTS | | | [...] | [facility] | [address] | [place] [address] | | | SERVICES, CORE | [address] [...] | | | LABORATORY | | | ESTONIAN | | | SERVICES, | | | [...] | + + + + + | [facility] | [address] | [place] [address] | | | SERVICES, CORE | VILMA [...] CENTER LABORATORY | [address] | [place] [address] | | | SERVICES, CORE | [address] | | | + + + + + 12 LEAD ECG (10/11/2017 12:50 PM PDT) + + + + + + | Component | Value | Ref Range | Performed | Pathologist | | | | | At | Signature | + + + + + + | VENTRICULAR | 119 | bpm | [facility] [...] + + | [facility] | [address] | [place], [place] | | | CARDIOLOGY | [address] | [address] | | + + + + + [...] + | [facility] | [address] | [place], [place] | | | CARDIOLOGY | [address] | [address] | | + + + + + [...] [facility] | [address] | [place] [address] | | | ELIN, NATALEE | VILMA [...] | [facility] | [address] | [place] [address] | | | SERVICES, CORE | VIL[address] [...] | | | LABORATORY | | | ESTONIAN | | | SERVICES, | | | [...] + | [facility] | [address] | [place] [address] | | | SERVICES, [facility] | [address] | | | + + + + + PROCEDURE NOTE (10/10/2017 10:00 PM PDT) + + + | Narrative | Performed At | + + + | Darius Link MD 10/12/2017 11:11 AM OPERATIVE REPORT | | | DATE OF OPERATION: 10/10/2017 ATTENDING SURGEON: 1. Dr. Hernandez | | | WATER POLLUTION CONTROL INSPECTOR: 1. Darius Link MD INDICATIONS: Dysphagia | | | and need for nursing home nutrition access PREOPERATIVE DIAGNOSIS: | | | 1.Dysphagia and need for nursing home nutrition access | | | POSTOPERATIVE [...] | | | [place] [address] Chief Resident | | | Neurosurgery | [...] [facility] | [address] | [place] [address] | | | NATALEE WORTHINGTON | VILMA [...] | | | LABORATORY | | | ESTONIAN | | | SERVICES, | | | [...] [facility] | [address] | [place] [address] | | | SERVICES, CORE | [address]ARK [...] | + + + + + | [facility] | [address] | [place] [address] | | | ELIN, NATALEE | [address] | | | + + + + + OPERATION RECORD (10/10/2017 12:40 PM PDT) + + | Procedure Note | + + | Magdiel Stock MD - 10/10/2017 12:40 PM PDT Date of Service: 10/10/2017 Attending | | Surgeon: Magdiel Stock MD Security System Installer(s): Cecilia Jackson | | . Preoperative Diagnoses: [...] is a 67-year-old male. Please see [facility] for full details. He | [...] | the note for this encounter.Sonal Nunez MD[address] [facility] | | [place] [phone] Orina, MDFAH/MODDIOND: | | 10/10/2017 11:52:15DT: 10/10/2017 12:40:41Job #: [id number] | | | | | |I was present for the critical portions of the procedure as described in the note for this encounter. | | | |Magdiel Stock MD | | | |Magdiel Stock MD | |[address] | |[address] [facility] | |[facility] | |[place] [address] | |[phone] | | | | | |Magdiel Stock MD | |JAYLAN/DUC | | | | | | /[id number] | + + X-RAY ABDOMEN 1 VIEW [...] + | [facility] - | [address] | [place] [address] | | | [place] | | | [...] + + + + | [facility] - | [address] | [place] [address] | | | [place] | | | [...] + | [facility] - | [address] | [place] [address] | | | [facility] | | | | + [...] + | [facility] - | [address] | [place] [address] | | | [place] | | | [...] + | [facility] - | [address] | [place] [address] | | | [place] | | | [...] + | [facility] - | [address] | [place] [address] | | | [place] | | | [...] + | [facility] - | [address] | [place] [address] | | | [place] | | | | + + + + + CULTURE, TISSUE (10/10/2017 8:50 AM PDT) + + + + + + | Component | Value | Ref Range | Performed | Pathologist | | | | | At | Signature | + + + + + + | CULTURE | Pseudomonas aeruginosa | | [facility] - | | | RESULT | (A) [...] Gram Stain: No squamous epithelial cells | [facility] | | Few polymorphonuclear cells No organisms seen | | + + + + + + + + | Performing | Address | City/State/Zipcode | Phone Number | | Organization | | | | + + + + + | [facility] - | [address] | [place] [address] | | | [place] | | | [...] + | [facility] - | [address] | [place] [address] | | | [place] | | | [...] + | [facility] - | [address] | [place] [address] | | | [place] | | | [...] + | [facility] - | [address] | [place] [address] | | | [place] | | | [...] + | [facility] - | [address] | [place] [address] | | | [place] | | | [...] + | [facility] - | [address] | [place] [address] | | | [place] | | | [...] + | [facility] - | [address] | [place] [address] | | | [place] | | | [...] | + + + + + | [facility] - | [address] | [place] [address] | | | [place] | | | [...] + | [facility] - | [address] | [place] [address] | | | [place] | | | [...] 1+ Pseudomonas aeruginosa Refer to culture | [facility] - | | collected 10/10/17 at [address] [...] | + + + + + | [facility] | [address] | [place] [address] | | | [place] | | | [...] detected | [facility] - | | | [facility] | + + + + + + + + | Performing | Address | City/State/Zipcode | Phone Number | | Organization | | | | + + + + + | [facility] - | [address] | [place] [address] | | | [place] | | | [...] [facility] | [address] | [place] [address] | | | SERVICES, CORE | PARK [...] [facility] | [address] | [place] [address] | | | SERVICES, CORE | [...] [facility] | [address] | [place] [address] | | | SERVICES, CORE | PARK [...] | | | LABORATORY | | | ESTONIAN | | | SERVICES, | | | [...] [facility] | [address] | [place] [address] | | | ELIN, NATALEE | VILMA [...] [place], [place] | | | CARDIOLOGY | [address] | [address] | | + + + + + [...] + + + + | PRODUCT | [id number] | | [facility] | | | UNIT [...] + + + + | EXPIRATION | [id number] | | [facility] | | | DATE [...] + + + + | BLOOD | [id number] | | [facility] | | | PRODUCT [...] [facility] | [address] | [place] [address] | | | SERVICES, | [address] [...] + + + + | PRODUCT | [id number] | | [facility] | | | UNIT [...] + + + + | EXPIRATION | [id number] | | [facility] | | | DATE [...] + + + + | BLOOD | [id number] | | [facility] | | | PRODUCT [...] [facility] | [address] | [place] [address] | | | SERVICES, | [address] [...] LABORATORY | [address] | [place] [address] | | | SERVICES, | [address] [...] | + + + + + | [facility] | [address] | [place] [address] | | | SERVICES, | [address] [...] [facility] | [address] | [place] [address] | | | SERVICES, | [address] [...] [facility] | [address] | [place] [address] | | | [facility] | [address] | [...] + | [facility] | [address] | [place], [place] | | | CARDIOLOGY | [address] | [address] | | + + + + + [...] Note | + + | Service Account, Docracy Res In Interface - 10/08/2017 10:47 AM [...] [facility] | [address] | [place], [place] | | | [facility]O [facility] | [facility] | [address] | | | TESTS | | | [...] [facility] | [address] | [place] [address] | | | SERVICES, CORE | PARK [...] [facility] | [address] | [place] [address] | | | SERVICES, CORE | PARK [...] | | | LABORATORY | | | ESTONIAN | | | SERVICES, | | | [...] the MDRD equation recommended by the | [facility] | | National Kidney Disease Education Program. [...] [facility] | [address] | [place] [address] | | | NATALEE WORTHINGTON | VILMA [...] - [facility] | [address] | [place], [place] | | | [facility] | [address] | [address] | | | TESTS | | | [...] | [address] | [place], [place] | | | GL[facility]IA GENAO OF CARE | [address] | [address] | | | TESTS | | | [...] POINT OF CARE | [address] | [address] | | | TESTS | | | [...] - [facility] | [address] | [place], [place] | | | [facility] | [address] | [address] | | | TESTS | | | [...] | [address] | [place], [place] | | | GLORIA GENAO OF [facility] | [address] | [address] | | | TESTS | | | [...] [facility] | [address] | [place] [address] | | | NATALEE WORTHINGTON | VILMA [...] | + + + + + | [facility] | [address] | [place] [address] | | | NATALEE WORTHINGTON | PARK [...] | | | LABORATORY | | | ESTONIAN | | | SERVICES, | | | [...] [facility] | [address] | [place] [address] | | | SERVICES, CORE | VILMA [...] | | GL[facility]IA GENAO [facility] | [address] | [address] | | | TESTS | | | [...] | [address] | [place], [place] | | | [facility] | [address] | [address] | | | TESTS | | | [...] OF | [address] | [place], [place] | | | CARDIOLOGY | [address] | [address] | | + + + + + [...] | GL[facility]IA GENAO [facility] | [facility] | [address] | | | TESTS | | | [...] CENTER LAB[facility]ORY | [address] | [place] [address] | | | SERVICES, CORE | [address] | | | + + + + + MAGNESIUM, PLASMA (10/06/2017 7:25 AM PDT) + +-------+ + + + | Component | Value | Ref Range | Performed | Pathologist | | | | | At | Signature | + +-------+ + + + | MAGNESIUM,P | 2.0 | 1.6 - 2.6 mg/dL | [facility] | | | [facility] | | | [...] [facility] | [address] | [place] [address] | | | ELIN, NATALEE | VIL[address] [...] | | | LABORATORY | | | ESTONIAN | | | SERVICES, | | | [...] + + | [facility] | [address] | [place] [address] | | | SERVICES, CORE [...] | | GL[facility] GE[facility]O [facility] CARE | [address] | [address] | | | TESTS | | | [...] - [facility] | [address] | [place], [place] | | | [facility] | [address] | [address] | | | TESTS | | | [...] | [address] | [place] | | | [facility]ARE | [address] | [address] | | | TESTS | | | [...] | | [facility] | [address] | [address] | | | TESTS | | | [...] OF | [address] | [place], [place] | | | CARDIOLOGY | [address] | [address] | | + + + + + [...] LABORATORY | [address] | [place] [address] | | | NATALEE WORTHINGTON | VILMA [...] [facility] | [address] | [place] [address] | | | SERVICES, CORE | PARK [...] | | | LABORATORY | | | ESTONIAN | | | SERVICES, | | | [...] CENTER [facility] | [address] | [place] [address] | | | SERVICES, CORE | PARK [...] (H) | 70 - 99 mg/dL | [facility] - | | | GLUCOSE, | | [...] | [address] | [place], [place] | | | GL[facility] GENAO OF [facility] | [facility] | [address] | | | TESTS | | | [...] [facility] | [address] | [place], [place] | | | GL[facility]IA GENAO OF CARE | [facility] | [address] | | | TESTS | | | [...] [facility] | [address] | [place], [place] | | | [facility] | [address] | [address] | | | TESTS | | | [...] | [address] | [place] | | | GLORIA GENAO OF [facility] | [facility] | [address] | | | TESTS | | | [...] | [address] | [place] | | | [facility] | [facility] | [address] | | | TESTS | | | [...] [facility] | [address] | [place] [address] | | | SERVICES, CORE | PARK [...] [facility] | [address] | [place] [address] | | | SERVICES, CORE | PARK [...] | | | LABORATORY | | | ESTONIAN | | | SERVICES, | | | [...] [facility] | [address] | [place] [address] | | | SERVICES, CORE | VILMA [...] [facility] | [address] | [place] | | | [facility]ARE | [address] | [address] | | | TESTS | | | [...] POINT OF CARE | [address] | [address] | | | TESTS | | | [...] [facility] | [address] | [place] [address] | | | SERVICES, CORE | PARK [...] by | | | | | | [facility],[address] | | | | | | Rogelio Pickard, [facility],[place] | | | | | | [id number] | | | | | | [phone]. | | | | | | Gui [...] [facility] | [address] | [place], [place] | | | [facility] | | [address] | | + + + + + [...] | [facility] | [address] | [place] [address] | | | SERVICES, CORE | VILMA [...] [facility] | [address] | [place] [address] | | | SERVICES, CORE | VILMA [...] modified from | [facility] | | original prisoner classification interviewer's approved specifications. The performance | LABORATORY | | of the COLLEGE ADMINISTRATOR HIV Combo test, with or without confirmation, was not | SERVICES, | | tested in pediatric patients less than 2 years of age. [facility] | SPECIAL IMM + | [...] [facility] | [address] | [place] [address] | | | SERVICES, SPECIAL | VILMA [...] | | [facility] | [address] | [address] | | | TESTS | | | [...] - [facility] | [address] | [place] | | | [facility]ARE | [address] | [address] | | | TESTS | | | [...] CENTER [facility] | [address] | [place] [address] | | | NATALEE WORTHINGTON | VILMA [...] [facility] | [address] | [place] [address] | | | SERVICES, CORE | VILMA [...] | | | LABORATORY | | | ESTONIAN | | | SERVICES, | | | [...] CENTER [facility] | [address] | [place] [address] | | | SERVICES, CORE | VILMA [...] | [address] | [place] | | | [facility] | [address] | [address] | | | TESTS | | | [...] | | [facility] | [address] | [address] | | | TESTS | | | [...] [place] | | | CARDIOLOGY | [address] | [address] | | + + + + + [...] Note | + + | Service Account, Docracy Res In Interface - 10/02/2017 2:07 PM [...] [place] | | | [facility] | [address] | [address] | | | TESTS | | | [...] | GLORIA GENAO OF [facility] | [facility] | [address] | | | TESTS | | | [...] CENTER [facility] | [address] | [place] [address] | | | SERVICES, CORE | PARK [...] [facility] | [address] | [place] [address] | | | SERVICES, NATALEE | VILMA [...] | | | LABORATORY | | | ESTONIAN | | | SERVICES, | | | [...] + + | [facility] | [address] | [place] [address] | | | SERVICES, CORE | VILMA [...] | [address] | [place] | | | [facility]ARE | [address] | [address] | | | TESTS | | | [...] [place] | | | [facility] | [address] | [address] | | | TESTS | | | [...] Note | + + | Service Account, Docracy Res In Interface - 10/01/2017 2:15 PM [...] | [place] | | | [facility] | [address] | [address] | | | TESTS | | | [...] Note | + + | Service Account, Docracy Res In Interface - 10/01/2017 11:34 AM [...] | [address] | [place] | | | [facility] GE[facility]O [facility] CARE | [address] | [address] | | | TESTS | | | [...] | + + + + + | [facility] | [address] | [place] [address] | | | SERVICES, CORE | PARK [...] LABORATORY | [address] | [place] [address] | | | NATALEE WORTHINGTON | VILMA [...] | | | LABORATORY | | | ESTONIAN | | | SERVICES, | | | [...] + + | [facility] | [address] | [place] [address] | | | SERVICES, CORE | VILMA [...] [facility] | [address] | [place], [place] | | | GLORIA GENAO OF [facility] | [facility] | [address] | | | TESTS | | | [...] | [address] | [place] | | | [facility]ARE | [address] | [address] | | | TESTS | | | [...] | | CARDIOLOGY | [address] | [address] | | + + + + + [...] POINT OF CARE | [address] | [address] | | | TESTS | | | [...] - [facility] | [address] | [place] | | | [place] [facility]INT OF CARE | [address] | [address] | | | TESTS | | | [...] [facility] | [address] | [place] [address] | | | SERVICES, NATALEE | VILMA [...] | [facility] | [address] | [place] [address] | | | SERVICES, CORE | VILMA [...] | | | LABORATORY | | | ESTONIAN | | | SERVICES, | | | [...] CENTER [facility] | [address] | [place] [address] | | | SERVICES, CORE | VILMA [...] (H) | 70 - 99 mg/dL | [facility] - | | | GLUCOSE, | | [...] | | [facility] | [address] | [address] | | | TESTS | | | [...] | [address] | [place], [place] | | | [facility] GE[facility] CARE | [address] | [address] | | | TESTS | | | [...] | [address] | [place] | | | [facility] | [address] | [address] | | | TESTS | | | [...] [facility] | [address] | [place], [place] | | | CARDIOLOGY | [address] | [address] | | + + + + + [...] [place] | | | [facility] | [address] | [address] | | | TESTS | | | [...] LABORATORY | [address] | [place] [address] | | | SERVICES, NATALEE | VILMA [...] | | | LABORATORY | | | ESTONIAN | | | SERVICES, | | | [...] [facility] | [address] | [place] [address] | | | SERVICES, CORE | VILMA [...] LABORATORY | [address] | [place] [address] | | | NATALEE WORTHINGTON | VILMA [...] [facility] | [address] | [place], [place] | | | [facility]ARE | [address] | [address] | | | TESTS | | | [...] + + + | [facility] | [address] | [place] | | | [facility]ARE | [address] | [address] | | | TESTS | | | [...] | | [facility] | [address] | [address] | | | TESTS | | | [...] OF | [address] | [place] | | | CARDIOLOGY | [address] | [address] | | + + + + + [...] [facility] | [address] | [place], [place] | | | GLORIA GENAO OF [facility] | [address] | [address] | | | TESTS | | | [...] CENTER [facility] | [address] | [place] [address] | | | SERVICES, CORE | [address] | | | + + + + + MAGNESIUM, PLASMA (09/28/2017 4:58 AM PDT) + +-------+ + + + | Component | Value | Ref Range | Performed | Pathologist | | | | | At | Signature | + +-------+ + + + | MAGNESIUM,P | 2.1 | 1.6 - 2.6 mg/dL | [facility] | | | [facility] | | | [...] LABORATORY | [address] | [place] [address] | | | SERVICES, NATALEE | VILMA [...] | | | LABORATORY | | | ESTONIAN | | | SERVICES, | | | [...] [facility] | [address] | [place] [address] | | | SERVICES, NATALEE | VILMA [...] [facility] | [address] | [place], [place] | | | [facility] GE[facility]O OF CARE | [facility] | [address] | | | TESTS | | | [...] | [address] | [place] | | | [facility] | [address] | [address] | | | TESTS | | | [...] cleared with dry swallows. Please see [facility] for full details | [...] [facility] | [address] | [place], [place] | | | [facility] GE[facility] CARE | [address] | [address] | | | TESTS | | | [...] | [address] | [place] | | | [facility] | [address] | [address] | | | TESTS | | | [...] | + + + + + | [facility] | [address] | [place] [address] | | | NATALEE WORTHINGTON | VILMA [...] CENTER LAB[facility]ORY | [address] | [place] [address] | | | NATALEE WORTHINGTON | VILMA [...] | | | LABORATORY | | | ESTONIAN | | | SERVICES, | | | [...] [facility] | [address] | [place] [address] | | | SERVICES, CORE | VILMA [...] | [address] | [place] | | | [facility] | [address] | [address] | | | TESTS | | | [...] [facility] | [address] | [place] | | | [facility] | [address] | [address] | | | TESTS | | | [...] | | CARDIOLOGY | [address] | [address] | | + + + + + [...] | | [facility]ARE | [email or web address] | [address] | | | TESTS | | | [...] - [facility] | [address] | [place], [place] | | | [facility] | [address] | [address] | | | TESTS | | | [...] + + + | [facility] | [address] | [place] | | | [facility] GE[facility]O [facility] | [address] | [address] | | | TESTS | | | [...] LABORATORY | [address] | [place] [address] | | | NATALEE WORTHINGTON | PARK [...] CENTER [facility] | [address] | [place] [address] | | | NATALEE WORTHINGTON | VILMA [...] | | | LABORATORY | | | ESTONIAN | | | SERVICES, | | | [...] [facility] | [address] | [place] [address] | | | SERVICES, CORE | VILMA [...] | | [facility] CARE | [address] | [address] | | | TESTS | | | [...] [facility] | [address] | [place] [address] | | | NATALEE WORTHINGTON | VILMA [...] CENTER LAB[facility] | [address] | [place] [address] | | | NATALEE WORTHINGTON | VILMA [...] | | | LABORATORY | | | ESTONIAN | | | SERVICES, | | | [...] [facility] | [address] | [place] [address] | | | SERVICES, CORE | VILMA [...] OF | [address] | [place] | | | CARDIOLOGY | [address] | [address] | | + + + + + [...] Note | + + | Service Account, [employer] In Interface - 09/24/2017 4:09 PM PDT [...] [facility] | [address] | [place] [address] | | | SERVICES, NATALEE | VILMA [...] | | | LABORATORY | | | ESTONIAN | | | SERVICES, | | | [...] + + | [facility] | [address] | [place] [address] | | | SERVICES, NATALEE | VILMA [...] [facility] | [address] | [place] [address] | | | SERVICES, CORE | PARK [...] CENTER LAB[facility]ATORY | [address] | [place] [address] | | | SERVICES, CORE | VILMA [...] [facility] | [address] | [place] [address] | | | SERVICES, CORE | PARK [...] | | | LABORATORY | | | ESTONIAN | | | SERVICES, | | | [...] | [facility] | [address] | [place] [address] | | | ELIN, NATALEE | VILMA [...] | [address] | [place] | | | [facility] GE[facility] | [facility] | [address] | | | TESTS | | | [...] POINT OF CARE | [address] | [address] | | | TESTS | | | [...] CENTER LAB[facility] | [address] | [place] [address] | | | NATALEE WORTHINGTON | VILMA [...] + | [facility] | [address] | [place], [place] | | | CARDIOLOGY | [address] | [address] | | + + + + + [...] [facility] | [address] | [place] [address] | | | NATALEE WORTHINGTON | VILMA [...] | [facility] | [address] | [place] [address] | | | SERVICES, CORE | VILMA [...] | | | LABORATORY | | | ESTONIAN | | | SERVICES, | | | [...] CENTER LAB[facility]ORY | [address] | [place] [address] | | | SERVICES, CORE | VILMA [...] | | [facility] | [address] | [address] | | | TESTS | | | [...] CENTER [facility] | [address] | [place] [address] | | | SERVICES, CORE | PARK [...] [facility] | [address] | [place] [address] | | | SERVICES, CORE | VILMA [...] | | | LABORATORY | | | ESTONIAN | | | SERVICES, | | | [...] | + + + + + | [facility] | [address] | [place] [address] | | | NATALEE WORTHINGTON | VILMA [...] Note | + + | Service Account, [employer] In Interface - 09/20/2017 7:50 PM [...] Note | + + | Service Account, [employer] In Interface - 09/20/2017 6:25 PM PDT [...] Note | + + | Service Account, [employer] In Interface - 09/20/2017 6:26 PM [...] MD 09/20/2017 | | 6:25 PM Preliminary: eMga Yeager MD | |FINDINGS/IMPRESSION: | | | [...] | | CARDIOLOGY | [address] | [address] | | + + + + + [...] CENTER [facility] | [address] | [place] [address] | | | NATALEE WORTHINGTON | PARK [...] | [facility] | [address] | [place] [address] | | | SERVICES, CORE | VILMA [...] | | | LABORATORY | | | ESTONIAN | | | SERVICES, | | | [...] [facility] | [address] | [place] [address] | | | SERVICES, CORE | PARK [...] CENTER LAB[facility]ATORY | [address] | [place] [address] | | | NATALEE WORTHINGTON | VILMA [...] + + | [facility] | [address] | [place] [address] | | | SERVICES, CORE | VILMA [...] | | | LABORATORY | | | ESTONIAN | | | SERVICES, | | | [...] [facility] | [address] | [place] [address] | | | SERVICES, CORE | VILMA [...] [facility] | [address] | [place] [address] | | | NATALEE WORTHINGTON | VILMA [...] [facility] | [address] | [place] [address] | | | SERVICES, CORE | [address]ARK [...] | | | LABORATORY | | | ESTONIAN | | | SERVICES, | | | [...] | + + + + + | [facility] | [address] | [place] [address] | | | SERVICES, CORE | VILMA [...] Note | + + | Service Account, [employer] In Interface - 09/17/2017 11:53 AM PDT [...] CENTER LAB[facility]ATORY | [address] | [place] [address] | | | SERVICES, CORE | [address] | | | + + + + + MAGNESIUM, PLASMA (09/17/2017 6:46 AM PDT) + +-------+ + + + | Component | Value | Ref Range | Performed | Pathologist | | | | | At | Signature | + +-------+ + + + | MAGNESIUM,P | 2.4 | 1.6 - 2.6 mg/dL | [facility] | | | [facility] | | | [...] [facility] | [address] | [place] [address] | | | SERVICES, NATALEE | VILMA [...] | | | LABORATORY | | | ESTONIAN | | | SERVICES, | | | [...] [facility] | [address] | [place] [address] | | | SERVICES, NATALEE | VILMA [...] Note | + + | Service Account, [employer] In Interface - 09/16/2017 1:34 PM PDT [...] Note | + + | Service Account, [employer] In Interface - 09/16/2017 11:41 AM PDT [...] [facility] | [address] | [place] [address] | | | SERVICES, CORE | VILMA [...] | + + + + + | [facility] | [address] | [place] [address] | | | SERVICES, NATALEE | VILMA [...] | | | LABORATORY | | | ESTONIAN | | | SERVICES, | | | [...] + + + + + | [facility] | [address] | [place] [address] | | | SERVICES, CORE | VILMA [...] PICC LINE CHECK HISTORY: PICC COMPARISON: | [facility] | | 09/10/17 FINDINGS: A left upper [...] | pause verifies correct patient, procedure, equipment, network diagnostic support specialist | | | and site/side [...] | area Basilic vein. Catheter lot number: [id number] with a length of 55 | | [...] Note | + + | Service Account, [employer] In Interface - 09/15/2017 2:13 PM [...] [facility] | [address] | [place] [address] | | | NATALEE WORTHINGTON | VILMA [...] [facility] | [address] | [place] [address] | | | NATALEE WORTHINGTON | PARK [...] | | | LABORATORY | | | ESTONIAN | | | SERVICES, | | | [...] | + + + + + | [facility] | [address] | [place] [address] | | | SERVICES, CORE | VILMA [...] [facility] | [address] | [place] [address] | | | SERVICES, CORE | PARK [...] [facility] | [address] | [place] [address] | | | SERVICES, CORE | VILMA [...] | | | LABORATORY | | | ESTONIAN | | | SERVICES, | | | [...] Interpretive Information: <60 mL/min/1.73 sq m | [facility], [facility] | | Chronic Kidney [...] + + | [facility] | [address] | [place] [address] | | | NATALEE WORTHINGTON | [address] | | | + + + + + [facility] (HEMOGRAM) ONLY (09/13/2017 6:34 AM PDT) [...] [facility] | [address] | [place] [address] | | | SERVICES, CORE | PARK [...] [facility] | [address] | [place] [address] | | | SERVICES, CORE | PARK [...] | | | LABORATORY | | | ESTONIAN | | | SERVICES, | | | [...] + + | [facility] | [address] | [place] [address] | | | NATALEE WORTHINGTON | V[place]MA [...] [facility] | [address] | [place] [address] | | | SERVICES, NATALEE | VILMA [...] [facility] | [address] | [place] [address] | | | SERVICES, CORE | VILMA [...] | | | LABORATORY | | | ESTONIAN | | | SERVICES, | | | [...] [facility] | [address] | [place] [address] | | | SERVICES, CORE | VILMA [...] Note | + + | Service Account, [employer] In Interface - 09/11/2017 6:22 PM [...] LABORATORY | [address] | [place] [address] | | | SERVICES, CORE | PARK [...] [facility] | [address] | [place] [address] | | | SERVICES, CORE | PARK [...] | | | LABORATORY | | | ESTONIAN | | | SERVICES, | | | [...] [facility] | [address] | [place] [address] | | | ELIN, NATALEE | VILMA [...] [facility] | [address] | [place] [address] | | | SERVICES, NATALEE | VILMA [...] Note | + + | Service Account, [employer] In Interface - 09/10/2017 2:08 PM [...] Note | + + | Service Account, [employer] In Interface - 09/10/2017 2:31 PM PDT [...] [facility] | | | | | [facility] US | | | | [...] CENTER LABORATORY | [address] | [place] [address] | | | SERVICES, CORE | VILMA [...] + + | [facility] | [address] | [place] [address] | | | SERVICES, CORE | VILMA [...] CENTER LABORATORY | [address] | [place] [address] | | | NATALEE WORTHINGTON | VILMA [...] [facility] | [address] | [place] [address] | | | NATALEE WORTHINGTON | VILMA [...] | | | LABORATORY | | | ESTONIAN | | | SERVICES, | | | [...] CENTER LABORATORY | [address] | [place] [address] | | | SERVICES, CORE | PARK [...] [facility] DEPT OF | [address] | [place], [place] | | | CARDIOLOGY | [address] | [address] | | + + + + + [...] Note | + + | Service Account, [employer] In Interface - 09/10/2017 11:11 AM [...] - [facility] | [address] | [place], [place] | | | [facility] | [address] | [address] | | | TESTS | | | [...] [facility] | [address] | [place] [address] | | | SERVICES, CORE | PARK [...] [facility] | [address] | [place] [address] | | | SERVICES, CORE | VILMA [...] | | | LABORATORY | | | ESTONIAN | | | SERVICES, | | | [...] [facility] | [address] | [place] [address] | | | SERVICES, CORE | PARK [...] | [facility] | [address] | [place] [address] | | | SERVICES, CORE | VILMA [...] | | | LABORATORY | | | ESTONIAN | | | SERVICES, | | | [...] [facility] | [address] | [place] [address] | | | SERVICES, CORE | VILMA [...] [facility] | [address] | [place] [address] | | | SERVICES, CORE | PARK [...] CENTER LABORATORY | [address] | [place] [address] | | | SERVICES, CORE | VILMA [...] | | CARDIOLOGY | [address] | [address] | | + + + + + [...] [facility] | [address] | [place] [address] | | | SERVICES, CORE | PARK [...] | | | LABORATORY | | | ESTONIAN | | | SERVICES, | | | [...] CENTER LABORATORY | [address] | [place] [address] | | | NATALEE WORTHINGTON | VILMA [...] CENTER LABORATORY | [address] | [place] [address] | | | SERVICES, NATALEE | PARK [...] Note | + + | Service Account, [employer] In Interface - 09/07/2017 10:46 AM [...] [facility] | [address] | [place], [place] | | | CARDIOLOGY | [address] | [address] | | + + + + + [...] | | | attempt. Midline lot number [id number]; there was positive blood | | | [...] | | | LABORATORY | | | ESTONIAN | | | SERVICES, | | | [...] | + + + + + | [facility] | [address] | [place] [address] | | | SERVICES, CORE | VILMA [...] [facility] | [address] | [place] [address] | | | SERVICES, CORE | PARK [...] Note | + + | Service Account, Docracy [employer] In Interface - 09/05/2017 10:16 AM [...] [facility] | [address] | [place] [address] | | | SERVICES, CORE | VILMA [...] | + + + + + | [facility] | [address] | [place] [address] | | | NATALEE WORTHINGTON | VILMA [...] | | | LABORATORY | | | ESTONIAN | | | SERVICES, | | | [...] [facility] | [address] | [place] [address] | | | SERVICES, NATALEE | VILMA [...] | | | LABORATORY | | | ESTONIAN | | | SERVICES, | | | [...] + + | [facility] | [address] | [place] [address] | | | SERVICES, CORE | VILMA [...] tomorrow morning. CB Henson Pager / ID: [phone] | | + + + CULTURE, SPUTUM [...] | + + + + + | [facility] AIRPORT - | [address] | [place] [address] | | | [place] | | | [...] CENTER LABORATORY | [address] | [place] [address] | | | SERVICES, CORE | VILMA [...] | [facility] | | | GRAVITY | [place] performed by | | LABORATORY | | [...] [facility] | [address] | [place] [address] | | | SERVICES, CORE | PARK [...] + | [facility] | [address] | [place] [address] | | | SERVICES, CORE | VILMA [...] LABORATORY | [address] | [place] [address] | | | SERVICES, CORE | VILMA [...] OF | [address] | [place], [place] | | | CARDIOLOGY | [address] | [address] | | + + + + + [...] [facility] | [address] | [place] [address] | | | SERVICES, CORE | PARK [...] | [facility] | [address] | [place] [address] | | | SERVICES, CORE | VILMA [...] | | | LABORATORY | | | ESTONIAN | | | SERVICES, | | | [...] [facility] | [address] | [place] [address] | | | SERVICES, CORE | VILMA [...] CENTER LABORATORY | [address] | [place] [address] | | | SERVICES, CORE [...] | | [facility] | [address] | [address] | | | TESTS | | | [...] [facility] | [address] | [place] | | | [facility] | [address] | [address] | | | TESTS | | | [...] | [address] | [place], [place] | | | [facility] | [facility] | [address] | | | TESTS | | | [...] | [address] | [place], [place] | | | [facility]ARE | [address] | [address] | | | TESTS | | | [...] Note | + + | Service Account, [employer] In Interface - 09/03/2017 10:27 AM PDT [...] + | [facility] - | [address] | [place] [address] | | | [place] | | | [...] [facility] | [address] | [place] [address] | | | SERVICES, CORE | VILMA [...] + | [facility] - | [address] | [place] [address] | | | [place] | | | [...] LABORATORY | [address] | [place] [address] | | | SERVICES, CORE | PARK [...] [facility] | [address] | [place] [address] | | | SERVICES, CORE | PARK [...] | | | LABORATORY | | | ESTONIAN | | | SERVICES, | | | [...] + + | [facility] | [address] | [place] [address] | | | SERVICES, NATALEE | VILMA [...] | + + + + + | [facility] | [address] | [place] [address] | | | SERVICES, CORE | [address] | | | + + + + + OPERATION RECORD (09/02/2017 6:53 PM PDT) + + | Procedure Note | + + | Fidelina Shields MD - 09/02/2017 6:53 PM PDT Date of Service: 09/02/2017 | | Attending Surgeon: Fidelina Shields MD Security System Installer(s): | | Ajay Butts MD, resident. Preoperative [...] 09/02/2017 18:15:29DT: 09/02/2017 18:53:52Job #: | | [id number] to federal Medicare and Medicaid regulations I was present for | | the entire procedure.Fidelina Shields MDAssistant ProfessorDepartment of SurgeryOffice: | | [phone]: [id number] has been electronically signed by Fidelina Shields MD, | | 09/03/2017 at 9:11 AM. | | | | | |Fidelina Shields MD | |Renewable Energy Division Manager | |Department of Surgery | |Office: [phone] | |Pager: [phone] | | | |This has been electronically [...] [facility] | [address] | [place] [address] | | | SERVICES, CORE | VILMA [...] [facility] | [address] | [place] [address] | | | NATALEE WORTHINGTON | VILMA [...] + | [facility] - | [address] | [place] [address] | | | [facility] | | | | + [...] [facility] | [address] | [place] [address] | | | SERVICES, CORE | PARK [...] | | | LABORATORY | | | ESTONIAN | | | SERVICES, | | | [...] the MDRD equation recommended by the | [facility] | | National Kidney Disease Education Program. [...] [facility] | [address] | [place] [address] | | | SERVICES, [facility] | [address] | [...] | | contact: INGRID Butts, R4 Surgery [phone] Pursuant | | | to federal Medicare and Medicaid regulations I was present for the | | | entire procedure. Fidelina Shields MD Renewable Energy Division Manager | | | Department of Surgery Office: [phone] Pager: [phone] This has | | | been electronically signed by Fidelina Shiedls MD, 09/02/2017 at 4:31 | | | [...] | + + + + + | [facility] | [address] | [place] [address] | | | SERVICES, CORE | VILMA [...] + + + + + | [facility] | [address] | [place] [address] | | | SERVICES, CORE | [address] | | | + + + + + OPERATION RECORD (09/02/2017 6:51 AM PDT) + ---+ | Procedure Note | + ---+ | Fidelina Shields MD - 09/02/2017 6:51 AM PDT Date of Service: 09/01/2017 | | Attending Surgeon: Fidelina Shields MD Security System Installer(s): Haim Peralta MD. | | Ajay Butts [...] insurance of adequate | | hemostasis, a [facility] ABThera wound VAC was then placed and [...] 09/02/2017 06:17:53DT: 09/02/2017 | | 06:51:37Job #: [id number] to federal Medicare and Medicaid regulations I | | was present for the entire procedure.Fidelina Goodenistanbrice ProfessorDepartment of | | SurgeryOffice: [phone]: [phone] has been electronically signed by Fidelina Whitman | | MD Cornelius, 09/02/2017 at 10:40 AM. | | | | | |Pursuant to federal Medicare and Medicaid regulations I was present for the entire procedur e. | | | | | | | |Fidelina Shields MD | |Renewable Energy Division Manager | |Department of Surgery | |Office: [phone] | |Pager: [phone] | | | |This has been electronically [...] [facility] | [address] | [place] [address] | | | SERVICES, CORE | PARK [...] [facility] | [address] | [place] [address] | | | SERVICES, CORE | VILMA [...] + + + + | PRODUCT | [id number] | | [facility] | | | UNIT [...] + + + + | EXPIRATION | [id number] | | [facility] | | | DATE [...] + + + + | BLOOD | [id number] | | [facility] | | | PRODUCT [...] | [facility] | [address] | [place] [address] | | | SERVICES, | [address] [...] the pelvis without intravenous contrast HISTORY: | [facility] | | Trauma. Concern for bladder injury. [...] [facility] | [address] | [place] [address] | | | SERVICES, CORE | PARK [...] | | | LABORATORY | | | ESTONIAN | | | SERVICES, | | | [...] | + + + + + | [facility] | [address] | [place] [address] | | | SERVICES, CORE | VILMA [...] | [facility] | [address] | [place] [address] | | | SERVICES, CORE | PARK [...] (http://www.cdc.gov/mmwr | | | | | | [email or web address] | | | | | | [email or web address]), [...] [facility] - | | | | by [employer], | | AIRPORT - | | | | | | [place] | | | | [address] | | | | | | [address] [place] [place], [place] | | | | | | [address] | | | | | | | | | | | | [email or web address] | | | | | | MD [...] + | [facility] - | [address] | [place] [address] | | | [place] | | | [...] [facility] | [address] | [place] [address] | | | NATALEE WORTHINGTON | PARK [...] [facility] | [address] | [place] [address] | | | SERVICES, CORE | VILMA [...] [facility] | [address] | [place] [address] | | | SERVICES, CORE | VILMA [...] CENTER LABORATORY | [address] | [place] [address] | | | SERVICES, CORE [...] + + + + | PRODUCT | [id number] | | [facility] | | | UNIT [...] + + + + | EXPIRATION | [id number] | | [facility] | | | DATE [...] + + + + | BLOOD | [id number] | | [facility] | | | PRODUCT [...] LABORATORY | [address] | [place] [address] | | | SERVICES, | [address] [...] [facility] | [address] | [place] [address] | | | SERVICES, CORE | PARK [...] [facility] | [address] | [place] [address] | | | SERVICES, CORE | PARK [...] [facility] | [address] | [place] [address] | | | SERVICES, CORE | VILMA [...] | | | LABORATORY | | | ESTONIAN | | | SERVICES, | | | [...] LABORATORY | [address] | [place] [address] | | | NATALEE WORTHINGTON | VILMA [...] [facility] | [address] | [place] [address] | | | SERVICES, CORE | VILMA [...] [facility] | [address] | [place] [address] | | | SERVICES, [facility] | [address] | [...] micropuncture access set was exchanged for a COTA Trackson wire. Under | | | fluoroscopic guidance, a 5 Fr flush catheter was used to evaluate the | | | distal abdominal aorta and pelvic vasculature. A wire and catheter | | | were then used to select the left common and internal iliac arteries | | | from the right NEUROSCIENCE SPECIALIST approach. DSA was performed from the left [...] micropuncture access set was exchanged for a Geron wire. Under fluoroscopic guidance, | | a 5 Fr flush catheter was used to evaluate the distal abdominal aorta and pelvic | | vasculature. A wire and catheter were then used to select the left common and internal | | iliac arteries from the right NEUROSCIENCE SPECIALIST approach. DSA was performed from the left [...] micropuncture access set was exchanged for a Geron wire. Under fluoroscopic guidance, a 5 Fr flush catheter was used | |to evaluate the distal abdominal aorta and pelvic vasculature. A wire and catheter were th en used to select the left common and internal iliac arteries from the right NEUROSCIENCE SPECIALIST approach. DSA was performed from the left [...] [address] [facility] [address] | [place], [place] | | | [facility] | [address] | [address] | | | TESTS | | | | + + + + + EXPLORATORY LAPAROTOMY (09/01/2017 12:31 PM PDT) + + + | Narrative | Performed At | + + + | Fidelina Shields MD 09/01/2017 12:42 PM BRIEF OPERATIVE NOTE: | | | Date: 09/01/2017 Author: Fidelina Shields MD | | | Attending Physician: Fidelina Shields MD Security System Installer(s): Haim Peralta | | | , Vicente Butts MD, [facility] MS3 Prior to the | | | [...] case. | | | Fidelina Shields MD Renewable Energy Division Manager Division of Trauma, | | | Critical Care and Acute Care Surgery Office: [phone] Pager: | | | [phone] | | + + + ABG-FULL ABL, [...] - [facility] | [address] | [place], [place] | | | [facility] CARE | [address] | [address] | | | TESTS | | | [...] [facility] | [address] | [place] [address] | | | SERVICES, NATALEE | VILMA [...] | [address] | [place], [place] | | | GL[facility]IA GENAO OF CARE | [address] | [address] | | | TESTS | | | [...] + + + + | PRODUCT | [id number] | | [facility] | | | UNIT [...] + + + + | EXPIRATION | [id number] | | [facility] | | | DATE [...] + + + + | BLOOD | [id number] | | [facility] | | | PRODUCT [...] [facility] | [address] | [place] [address] | | | SERVICES, | [address] [...] + + + + | PRODUCT | [id number] | | [facility] | | | UNIT [...] + + + + | EXPIRATION | [id number] | | [facility] | | | DATE [...] + + + + | BLOOD | [id number] | | [facility] | | | PRODUCT [...] [facility] | [address] | [place] [address] | | | SERVICES, | [address] [...] + + + + | PRODUCT | [id number] | | [facility] | | | UNIT [...] + + + + | EXPIRATION | [id number] | | [facility] | | | DATE [...] + + + + | BLOOD | [id number] | | [facility] | | | PRODUCT [...] [facility] | [address] | [place] [address] | | | SERVICES, | [address] [...] + + + + | PRODUCT | [id number] | | [facility] | | | UNIT [...] + + + + | EXPIRATION | [id number] | | [facility] | | | DATE [...] + + + + | BLOOD | [id number] | | [facility] | | | PRODUCT [...] [facility] | [address] | [place] [address] | | | SERVICES, | [address] [...] + + + + | PRODUCT | [id number] | | [facility] | | | UNIT [...] + + + + | EXPIRATION | [id number] | | [facility] | | | DATE [...] + + + + | BLOOD | [id number] | | [facility] | | | PRODUCT [...] [facility] | [address] | [place] [address] | | | SERVICES, | [address] [...] + + + + | PRODUCT | [id number] | | [facility] | | | UNIT [...] + + + + | EXPIRATION | [id number] | | [facility] | | | DATE [...] + + + + | BLOOD | [id number] | | [facility] | | | PRODUCT [...] [facility] | [address] | [place] [address] | | | SERVICES, | [address] [...] + + + + | PRODUCT | [id number] | | [facility] | | | UNIT [...] + + + + | EXPIRATION | [id number] | | [facility] | | | DATE [...] + + + + | BLOOD | [id number] | | [facility] | | | PRODUCT [...] [facility] | [address] | [place] [address] | | | SERVICES, | [address] [...] + + + + | PRODUCT | [id number] | | [facility] | | | UNIT [...] + + + + | EXPIRATION | [id number] | | [facility] | | | DATE [...] + + + + | BLOOD | [id number] | | [facility] | | | PRODUCT [...] + + | [facility] | [address] | [place] [address] | | | SERVICES, | [address] [...] + + + + | PRODUCT | [id number] | | [facility] | | | UNIT [...] + + + + | EXPIRATION | [id number] | | [facility] | | | DATE [...] + + + + | BLOOD | [id number] | | [facility] | | | PRODUCT [...] | + + + + + | [facility] | [address] | [place] [address] | | | SERVICES, | [address] [...] + + + + | PRODUCT | [id number] | | [facility] | | | UNIT [...] + + + + | EXPIRATION | [id number] | | [facility] | | | DATE [...] + + + + | BLOOD | [id number] | | [facility] | | | PRODUCT [...] [facility] | [address] | [place] [address] | | | SERVICES, | [address] [...] + + + + | PRODUCT | [id number] | | [facility] | | | UNIT [...] + + + + | EXPIRATION | [id number] | | [facility] | | | DATE [...] + + + + | BLOOD | [id number] | | [facility] | | | PRODUCT [...] CENTER LAB[facility]ORY | [address] | [place] [address] | | | SERVICES, | [address] [...] + + + + | PRODUCT | [id number] | | [facility] | | | UNIT [...] + + + + | EXPIRATION | [id number] | | [facility] | | | DATE [...] + + + + | BLOOD | [id number] | | [facility] | | | PRODUCT [...] [facility] | [address] | [place] [address] | | | SERVICES, | [address] [...] + + + + | PRODUCT | [id number] | | [facility] | | | UNIT [...] + + + + | EXPIRATION | [id number] | | [facility] | | | DATE [...] + + + + | BLOOD | [id number] | | [facility] | | | PRODUCT [...] [facility] | [address] | [place] [address] | | | SERVICES, | [address] [...] + + + + | PRODUCT | [id number] | | [facility] | | | UNIT [...] + + + + | EXPIRATION | [id number] | | [facility] | | | DATE [...] + + + + | BLOOD | [id number] | | [facility] | | | PRODUCT [...] [facility] | [address] | [place] [address] | | | SERVICES, | [address] [...] + + + + | PRODUCT | [id number] | | [facility] | | | UNIT [...] + + + + | EXPIRATION | [id number] | | [facility] | | | DATE [...] + + + + | BLOOD | [id number] | | [facility] | | | PRODUCT [...] LABORATORY | [address] | [place] [address] | | | SERVICES, | [address] [...] + + + + | PRODUCT | [id number] | | [facility] | | | UNIT [...] + + + + | EXPIRATION | [id number] | | [facility] | | | DATE [...] + + + + | BLOOD | [id number] | | [facility] | | | PRODUCT [...] [facility] | [address] | [place] [address] | | | SERVICES, | [address] [...] + + + + | PRODUCT | [id number] | | [facility] | | | UNIT [...] + + + + | EXPIRATION | [id number] | | [facility] | | | DATE [...] + + + + | BLOOD | [id number] | | [facility] | | | PRODUCT [...] [facility] | [address] | [place] [address] | | | SERVICES, | [address] [...] + + + + | PRODUCT | [id number] | | [facility] | | | UNIT [...] + + + + | EXPIRATION | [id number] | | [facility] | | | DATE [...] + + + + | BLOOD | [id number] | | [facility] | | | PRODUCT [...] [facility]ENTER [facility] | [address] | [place] [address] | | | SERVICES, | [address] [...] + + + + | PRODUCT | [id number] | | [facility] | | | UNIT [...] + + + + | EXPIRATION | [id number] | | [facility] | | | DATE [...] + + + + | BLOOD | [id number] | | [facility] | | | PRODUCT [...] [facility] | [address] | [place] [address] | | | SERVICES, | [address] [...] + + + + | PRODUCT | [id number] | | [facility] | | | UNIT [...] + + + + | EXPIRATION | [id number] | | [facility] | | | DATE [...] + + + + | BLOOD | [id number] | | [facility] | | | PRODUCT [...] [facility] | [address] | [place] [address] | | | SERVICES, | [address] [...] + + + + | PRODUCT | [id number] | | [facility] | | | UNIT [...] + + + + | EXPIRATION | [id number] | | [facility] | | | DATE [...] + + + + | BLOOD | [id number] | | [facility] | | | PRODUCT [...] + | [facility] | [address] | [place] [address] | | | SERVICES, | [address] [...] + + + + | PRODUCT | [id number] | | [facility] | | | UNIT [...] + + + + | EXPIRATION | [id number] | | [facility] | | | DATE [...] + + + + | BLOOD | [id number] | | [facility] | | | PRODUCT [...] | + + + + + | [facility] | [address] | [place] [address] | | | SERVICES, | [address] [...] + + + + | PRODUCT | [id number] | | [facility] | | | UNIT [...] + + + + | EXPIRATION | [id number] | | [facility] | | | DATE [...] + + + + | BLOOD | [id number] | | [facility] | | | PRODUCT [...] [facility] | [address] | [place] [address] | | | SERVICES, | [address] [...] + + + + | PRODUCT | [id number] | | [facility] | | | UNIT [...] + + + + | EXPIRATION | [id number] | | [facility] | | | DATE [...] + + + + | BLOOD | [id number] | | [facility] | | | PRODUCT [...] [facility] | [address] | [place] [address] | | | SERVICES, | [address] [...] + + + + | PRODUCT | [id number] | | [facility] | | | UNIT [...] + + + + | EXPIRATION | [id number] | | [facility] | | | DATE [...] + + + + | BLOOD | [id number] | | [facility] | | | PRODUCT [...] [facility] | [address] | [place] [address] | | | SERVICES, | [address] [...] + + + + | PRODUCT | [id number] | | [facility] | | | UNIT [...] + + + + | EXPIRATION | [id number] | | [facility] | | | DATE [...] + + + + | BLOOD | [id number] | | [facility] | | | PRODUCT [...] [facility] | [address] | [place] [address] | | | SERVICES, | [address] [...] [facility] | [address] | [place] [address] | | | SERVICES, CORE [...] | | | LABORATORY | | | ESTONIAN | | | SERVICES, | | | [...] | + + + + + | [facility] | [address] [address] | [place] [address] | | | SERVICES, CORE | VILMA [...] [facility] | [address] | [place] [address] | | | NATALEE WORTHINGTON | VILMA [...] | | | | | | GLORIA GNEAO | | [...] | [address] | [place], [place] | | | GLORIA GENAO OF [facility] | [address] | [address] | | | TESTS | | | [...] Note | + + | Service Account, [employer] In Interface - 09/02/2017 1:23 PM PDT [...] Note | + + | Service Account, [employer] In Interface - 09/01/2017 1:40 PM [...] + + + + | PRODUCT | [id number] | | [facility] | | | UNIT [...] + + + + | EXPIRATION | [id number] | | [facility] | | | DATE [...] + + + + | BLOOD | [id number] | | [facility] | | | PRODUCT [...] [facility] | [address] | [place] [address] | | | SERVICES, | [address] [...] + + + + | PRODUCT | [id number] | | [facility] | | | UNIT [...] + + + + | EXPIRATION | [id number] | | [facility] | | | DATE [...] + + + + | BLOOD | [id number] | | [facility] | | | PRODUCT [...] [facility] | [address] | [place] [address] | | | SERVICES, | [address] [...] + + + + | PRODUCT | [id number] | | [facility] | | | UNIT [...] + + + + | EXPIRATION | [id number] | | [facility] | | | DATE [...] + + + + | BLOOD | [id number] | | [facility] | | | PRODUCT [...] LABORATORY | [address] | [place] [address] | | | SERVICES, | [address] [...] + + + + | PRODUCT | [id number] | | [facility] | | | UNIT [...] + + + + | EXPIRATION | [id number] | | [facility] | | | DATE [...] + + + + | BLOOD | [id number] | | [facility] | | | PRODUCT [...] [facility] | [address] | [place] [address] | | | SERVICES, | [address] [...] + + + + | PRODUCT | [id number] | | [facility] | | | UNIT [...] + + + + | EXPIRATION | [id number] | | [facility] | | | DATE [...] + + + + | BLOOD | [id number] | | [facility] | | | PRODUCT [...] [facility] | [address] | [place] [address] | | | SERVICES, | [address] [...] + + + + | PRODUCT | [id number] | | [facility] | | | UNIT [...] + + + + | EXPIRATION | [id number] | | [facility] | | | DATE [...] + + + + | BLOOD | [id number] | | [facility] | | | PRODUCT [...] [facility] | [address] | [place] [address] | | | SERVICES, | [address] [...] + + + + | PRODUCT | [id number] | | [facility] | | | UNIT [...] + + + + | EXPIRATION | [id number] | | [facility] | | | DATE [...] + + + + | BLOOD | [id number] | | [facility] | | | PRODUCT [...] [facility] | [address] | [place] [address] | | | SERVICES, | [address] [...] + + + + | PRODUCT | [id number] | | [facility] | | | UNIT [...] + + + + | EXPIRATION | [id number] | | [facility] | | | DATE [...] + + + + | BLOOD | [id number] | | [facility] | | | PRODUCT [...] | + + + + + | [facility] | [address] | [place] [address] | | | SERVICES, | [address] [...] + + + + | PRODUCT | [id number] | | [facility] | | | UNIT [...] + + + + | EXPIRATION | [id number] | | [facility] | | | DATE [...] + + + + | BLOOD | [id number] | | [facility] | | | PRODUCT [...] [facility] | [address] | [place] [address] | | | SERVICES, | [address] [...] [facility] | [address] | [place] [address] | | | NATALEE WORTHINGTON | [address] [...] [facility] | [address] | [place] [address] | | | SERVICES, CORE | [address] [...] Discussed with | | | trauma ICU marketing pr intern by Dr. Yang at 4:38 AM. I have | | | personally reviewed the images and, if necessary, edited the report. | | | I agree with the report as now presented. | | + + + + + | Procedure Note | + + | Service Account, [employer] In Interface - 09/01/2017 10:10 AM PDT [...] interspinous ligament is injured.Discussed with trauma ICU marketing pr intern | | by Dr. Yang at 4:38 AM.I have personally reviewed the images and, if necessary, | | edited the report. I agree with the report as now presented. | |3. Extensive soft tissue edema extending into the cervical and upper thoracic interspinous space, suggestive of interspinous ligament is injured. | | | |Discussed with trauma ICU marketing pr intern by Dr. Yang at 4:38 AM. [...] | | | LABORATORY | | | [facility] | | | SERVICES, | | | [...] [facility] | [address] | [place] [address] | | | SERVICES, CORE | [address] [...] [facility] | [address] | [place] [address] | | | SERVICES, CORE | [address] [...] | + + + + + | [email or web address] | [address] | [place] [address] | | | SERVICES, CORE | [address] [...] [facility] | [address] | [place] [address] | | | SERVICES, CORE | [address] [...] pleural spaced was performed. A 32 size Citizen [place] chest tube was | | | placed [...] | ventricles. Discussed with the trauma ICU marketing pr intern at 12:12 AM by | | | Dr. Yang. I have personally reviewed the images and, if | | | necessary, edited the report. I agree with the report as now | | | presented. | | + + + + + | Procedure Note | + + | Service Account, [employer] In Interface - 09/01/2017 10:14 AM [...] ventricles.Discussed with | | the trauma ICU marketing pr intern at 12:[address] Yang.I [...] | | |Discussed with the trauma ICU marketing pr intern at 12:[address] Yang. [...] | [facility] | [address] | [place], [place] | | | [facility] | [address] | [address] | | | TESTS | | | [...] [facility] | [address] | [place] [address] | | | SERVICES, CORE | PARK [...] | [facility] | [address] | [place] [address] | | | SERVICES, [facility] | [address] | [...] + + + + + | [facility] | [address] | [place] [address] | | | SERVICES, CORE | PARK [...] Note | + + | Service Account, [employer] Res In Interface - 09/01/2017 1:44 PM [...] [facility] | [address] | [place] [address] | | | SERVICES, CORE | [address] [...] Note | + + | Service Account, [employer] In Interface - 08/31/2017 8:22 PM [...] Note | + + | Service Account, [employer] In Interface - 09/01/2017 10:12 AM PDT [...] rib, nondisplaced-Left | | 1st rib fracture, bkqliybtajrq-Khw-algwrmhbk left lateral 8th rib fracture-T12 fracture | [...] [facility] | [address] | [place] [address] | | | SERVICES, | [address] [...] | + + + + + | [email or web address] | [address] | [place] [address] | | | SERVICES, | [address] [...] [facility] | [address] | [place] [address] | | | ELIN | [address] [...] 5.4 | 5 - 10 Minutes | [facility] - | | | CITRATED | | | [facility] | | | | | | GLORIA GENAO | | | | | | OF CARE | | | | | | TESTS | | + + + + + + | K - | 2.3 | 1 - 3 Minutes | [facility] - | | | CITRATED | | [...] | | GLORIA GENA[facility] | [address] | [address] | | | TESTS | | | [...] - [facility] | [address] | [place], [place] | | | GLORIA GENAO OF [facility] | [facility] | [address] | | | TESTS | | | [...] | [address] | [place], [place] | | | GLORIA GENAO [facility] | [address] | [address] | | | TESTS | | | [...] | [address] | [place], [place] | | | [place] | [address] | [address] | | | TESTS | | | [...] + + + + | PRODUCT | [id number] | | [facility] | | | UNIT [...] + + + + | EXPIRATION | [id number] | | [facility] | | | DATE [...] + + + + | BLOOD | [id number] | | [facility] | | | PRODUCT [...] | + + + + + | [facility] | [address] | [place] [address] | | | SERVICES, | [address] [...] + + + + | PRODUCT | [id number] | | [facility] | | | UNIT [...] + + + + | EXPIRATION | [id number] | | [facility] | | | DATE [...] + + + + | BLOOD | [id number] | | [facility] | | | PRODUCT [...] [facility] | [address] | [place] [address] | | | SERVICES, | [address] [...] + + + + | PRODUCT | [id number] | | [facility] | | | UNIT [...] + + + + | EXPIRATION | [id number] | | [facility] | | | DATE [...] + + + + | BLOOD | [id number] | | [facility] | | | PRODUCT [...] [facility] | [address] | [place] [address] | | | SERVICES, | [address] [...] + + + + | PRODUCT | [id number] | | [facility] | | | UNIT [...] + + + + | EXPIRATION | [id number] | | [facility] | | | DATE [...] + + + + | BLOOD | [id number] | | [facility] | | | PRODUCT [...] [facility] | [address] | [place] [address] | | | SERVICES, | [address] [...] + + + + | PRODUCT | [id number] | | [facility] | | | UNIT [...] + + + + | EXPIRATION | [id number] | | [facility] | | | DATE [...] + + + + | BLOOD | [id number] | | [facility] | | | PRODUCT [...] [facility] | [address] | [place] [address] | | | SERVICES, | [address] [...] + + + + | PRODUCT | [id number] | | [facility] | | | UNIT [...] + + + + | EXPIRATION | [id number] | | [facility] | | | DATE [...] + + + + | BLOOD | [id number] | | [facility] | | | PRODUCT [...] [facility] | [address] | [place] [address] | | | SERVICES, | [address] [...] + + + + | PRODUCT | [id number] | | [facility] | | | UNIT [...] + + + + | EXPIRATION | [id number] | | [facility] | | | DATE [...] + + + + | BLOOD | [id number] | | [facility] | | | PRODUCT [...] [facility] | [address] | [place] [address] | | | SERVICES, | [address] [...] + + + + | PRODUCT | [id number] | | [facility] | | | UNIT [...] + + + + | EXPIRATION | [id number] | | [facility] | | | DATE [...] + + + + | BLOOD | [id number] | | [facility] | | | PRODUCT [...] [facility] | [address] | [place] [address] | | | SERVICES, | [address] [...] [facility] | [address] | [place] [address] | | | SERVICES, CORE | [address] [...] | | | LABORATORY | | | [facility] | | | SERVICES, | | | [...] | [facility] | [address] | [place] [address] | | | NATALEE WORTHINGTON | [address] [...] [facility] | [address] | [place] [address] | | | SERVICES, CORE | PARK [...] | + + + + + | [facility] | [address] | [place] [address] | | | SERVICES, CORE | [address] [...] [facility] | [address] | [place] [address] | | | SERVICES, CORE | PARK [...] [facility] | [address] | [place] [address] | | | NATALEE WORTHINGTON | [address] [...] | | | | | modification) on [facility] 11/07/17 at | | | | [...]
--- OUTSIDE RECORDS SUMMARY | ~2019-12-25 | XMS | Encounter Summary ---
Demographics + + + | Address | [address] | | | [place] [address] | + + + | Home Phone [...] | Author | [facility] | + + + | Organization | [facility] [employer] [facility] | + + + | Address | [...] floor | | | | | | [place], [place] | | | | | | [address] | | | +--------+ + + + [...]
--- OUTSIDE RECORDS SUMMARY | ~2019-12-25 | XMS | Encounter Summary ---
Demographics + + + | Address | [address] | | | [place] [address] | + + + | Home Phone [...] | Author | [facility] [employer] [facility] | + + + | Organization | [facility] [employer] [facility] | + [...] Team Providers + +------+ + | Care Resident Care Manager Rn Name | Role | Phone | [...] | | | | Rd [facility] | | | | | | Hospital Admitting | | | | | | Desk Located on the | | | | | | 9th floor | | | | | | [place], [place] | | | | | | [address] | | | +--------+ + + + [...]
--- OUTSIDE RECORDS SUMMARY | ~2019-12-25 | XMS | Encounter Summary ---
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 the assessement and plan as outlined in her note. Plan takeback with NSG, we will place Gabriel-oconnor feeding tube at that time. Chaz Hernandez MD, FACS [place], Trauma, Critical Care and Acute Care Surgery Sherine Sarmiento, [facility] - 10/08/2017 6:21 AM PDTFormatting of [...] - patient unable to come out of AMMUNITION COMPONENTS INSPECTOR for now - Will likely need [...] [place] [phone] [facility] [place] [address] [facility] [phone] Associated attestation - Chaz Hernandez MD - 10/08/2017 12:16 PM PDTI saw and examined th e patient today with KESHAWN Martin, and agree with the assessement and plan a s outlined in her note. No acute events. Seems to be slowly improving from MS. Appreciate ps ychiatry recs. Chaz Hernandez MD, FACS [place], Trauma, Critical Care and Acute Care Surgery [...] - patient unable to come out fo AMMUNITION COMPONENTS INSPECTOR for now - Will likely need [...] by patient, but wound remains cl zeferino/dry/intact. [place] removed 09/17. #Left hemothorax Chest tube placed [...] G tube next [place] [phone] [facility] [place] [address] [facility] [address] [phone] Associated attestation - Chaz Hernandez MD - 10/07/2017 11:15 AM PDTI saw and examined th e patient today with KESHAWN Martin, and agree with the assessement and plan a s outlined in her note. Will consider changing to bolus TF. Plan Gabrile-oconnor tube next week. Chaz Hernandez MD, FACS [place], Trauma, Critical Care and Acute Care Surgery [...] p atient unable to come out fo AMMUNITION COMPONENTS INSPECTOR for now Resolved or chronic issues/Plan: [...] issues, including restraints. Venita Pruitt PA-C [place] [phone] [facility] [place] [address] [place] [address] [phone] Associated attestation - Em Cunningham MD - 10/17/2017 10:13 AM PDTI was present and rou nded with the Advanced Practice Provider today . I interviewed and examined the patient. I reviewed the history, as documented today. I agree with the ASHLEY assessment and plan. TBI has remained stable. On lovenox. Will continue haldol per psych.. EM CUNNINGHAM MD [facility] [address] [place] [address] [address] [place] [address] Venita Pruitt PA-C - 10/05/2017 8:38 AM [...] p atient unable to come out fo AMMUNITION COMPONENTS INSPECTOR for now Resolved or chronic issues/Plan: [...] by patient, but wound remains duke n/dry/intact. [place] removed 09/17. #Left hemothorax Chest tube placed [...] issues, including restraints. Venita Pruitt PA-C [place] [phone] [facility] [address] [place] [address] [phone] Associated attestation - Shlomo Brvao MD - 10/06/2017 7:28 AM PDTFormatting of this note m ight be different from the original. I saw and examined Diogenes Temple ([id number]) with the TRAUMA team on 10/05/2017. I [...] and incen tive spirometry for pulmonary toliet. installation manager for disposition planning and placement. Shlomo Bravo MD Proofer Division of Trauma and Critical Care Venita [...] from previous TBI ) Neck: in [place] collar Respiratory: CTA b.l CV: RRR GI: [...] p atient unable to come out fo AMMUNITION COMPONENTS INSPECTOR for now Resolved or chronic issues/Plan: [...] by patient, but wound remains duke n/dry/intact. [place] removed 09/17. #Left hemothorax Chest tube placed [...] issues, including restraints. Venita Pruitt PA-C [place] [phone] [facility] [address] [place] [facility] [phone] Associated attestation - Fidelina Shields MD - [...] and only enteral access. Fidelina Shields MD [facility] Division of Trauma, Critical Care and Acute Care Surgery Office: [phone] Pager: [phone] Leonor Torres ACNP - 10/03/2017 3:13 PM [...] from previous TBI ) Neck: in [place] collar Respiratory: CTA bilaterally, no distress CV: [...] p atient unable to come out fo AMMUNITION COMPONENTS INSPECTOR for now Resolved or chronic issues/Plan: [...] PDTAttending: I saw and examined Diogenes Temple ([id number]) with CB Hair on morning rounds 10/03 and agree with the assessment and plan as outlined in this note and participated in the planning of care. Mental status is slightly better, remains sedated but he is interactive and at least somewh at oriented. Enteral nutrition advancing and, as approaches goal, will turn TPN off. Place ment remains a significant issue. Fidelina Shields MD [facility] Division of Trauma, Critical Care and Acute Care Surgery Office: [phone] Pager: [phone] July Harp PA-C - 10/03/2017 12:58 PM [...] the C-collar when in bed then the AMMUNITION COMPONENTS INSPECTOR when out of bed until 12/01/17. JULY HARP PA-C [facility] [address] [place] [address] Associated attestation - Magdiel Stock MD - 10/04/2017 6:02 PM PDTI performed a history a nd physical examination of the patient and discussed the management with the advanced practi ce provider, July Harp PA-C. I reviewed the advanced practice provider's note and agree w ith the plan of care as documented. Continue cervical collar and AMMUNITION COMPONENTS INSPECTOR for 3 months to ensure fracture healing and prevent development of post-fracture cervical kyphosis. Magdiel Stock MD [facility] Department of Neurological Surgery [facility] [place] Sherine Sarmiento, AGACN - 10/02/2017 12:54 PM [...] from previous TBI ) Neck: in [place] collar Respiratory: CTA bilaterally, lungs symmetrical, equal chest wall rise, no retractions CV: RRR GI: non tender, soft, active BS, last BM 09/30 : Patient voiding without difficulty Extremities: no peripheral edema, wiggles toes and toes pink and well perfused Musculoskeletal: 5/5 marketing automation manager strength on right, 3/5 marketing automation manager strength on left FEN: on TPN, transitioning [...] AMS & delirium - numerous evaluations by PYROTECHNIC MIXER with trials of PO - now s/p [...] . - C-collar at all times, use AMMUNITION COMPONENTS INSPECTOR when OOB - Follow-up with Neurosurgery [...] will decrease [place]g [phone] Associated attestation - Fidelina Shields MD - 10/02/2017 4:40 PM PDTAttending: I saw and examined Diogenes Temple ([id number]) with [facility]HAWN [facility] 10/02/17 and agree with the [...] place prior to DC Fidelina Shields MD [facility] Division of Trauma, Critical Care and Acute Care Surgery Office: [phone] Pager: [phone] Sherine Sarmiento AGACN - 10/01/2017 7:27 AM [...] from previous TBI ) Neck: in [place] collar Respiratory: CTA bilaterally, lungs symmetrical, equal chest wall rise, no retractions CV: RRR GI: non tender, soft, active BS, last BM 09/30 : Patient voiding without difficulty Extremities: no peripheral edema, wiggles toes and toes pink and well perfused Musculoskeletal: 5/5 marketing automation manager strength on right, 3/5 marketing automation manager strength on left FEN: on TPN Heme/ID: [...] AMS & delirium - numerous evaluations by PYROTECHNIC MIXER with trials of PO - now s/p modified barium swallow x2 which indicates aspiration - continue NPO - PYROTECHNIC MIXER reports that patient working on tongue strength [...] . - C-collar at all times, use AMMUNITION COMPONENTS INSPECTOR when OOB - Follow-up with Neurosurgery [...] trauma team [place] [phone] Associated attestation - Fidelina Shields MD - 10/02/2017 4:40 PM PDTAttending: I saw and examined Diogenes Temple ([id number]) with KESHAWN Alexander on mornin g rounds 10/01/17 and agree with the assessment and plan as outlined in this note and partic ipated in the planning of care. Will trial DHT placement today, CT head unchanged. Suspect somnolence is medication side ef fect and, if persistent, may need to wean antipsychotic doses. Fidelina Shields MD [facility] Division of Trauma, Critical Care and Acute Care Surgery Office: [phone] Pager: [phone] Christian Kelley PA-C - 09/30/2017 12:21 PM [...] and dilated on left Neck: in [place] collar Respiratory: CTA bilaterally, lungs symmetrical, equal chest wall rise, no retractions CV: RRR GI: non tender, soft, active BS, last BM 09/30 : Patient voiding without difficulty Extremities: no peripheral edema, wiggles toes and toes pink and well perfused Musculoskeletal: 5/5 marketing automation manager strength on right, 3/5 marketing automation manager strength on left FEN: on TPN Heme/ID: [...] AMS & delirium - numerous evaluations by PYROTECHNIC MIXER with trials of PO - now s/p modified barium swallow x2 which indicates aspiration - continue NPO - PYROTECHNIC MIXER reports that patient working on tongue strength [...] . - C-collar at all times, use AMMUNITION COMPONENTS INSPECTOR when OOB - Follow-up with Neurosurgery [...] PDTAttending: I saw and examined Diogenes Temple ([id number]) with Christian Kelley PA-C on morning rounds 09/30 and agree with the assessment and plan as outlined in this note and participated in the planning of care. Mentally slower this morning, but non-focal. Received haldol overnight for sleep. Repeat head CT was unchanged so suspect etiology of slowed responsiveness is the antipsychotic dose . PYROTECHNIC MIXER believes that, once collar off, may be able to take PO more effectively and thus will hold off on surgical feeding access. TPN is a temporary solution and if patient remains kaye nable will trial DHT tomorrow. Working with psychiatry for medication recommendations. Fidelina Shields MD [facility] Division of Trauma, Critical Care and Acute Care Surgery Office: [phone] Pager: [phone] July Harp PA-C - 09/30/2017 8:23 AM PDTBrief Neurosurgery Wound Check: Wound is dry, without erythema, not fluctuant. No acute swelling. Nylon in place. Will plan to follow peripherally for wound checks and remove nylons on 10/09. JULY HARP PA-C [facility] [address] [place] [address] Christian Begum PA-C - 09/29/2017 7:15 AM [...] EOMs intact to exam Neck: in [place] collar Respiratory: CTA bilaterally, lungs symmetrical, equal [...] AMS & delirium - numerous evaluations by PYROTECHNIC MIXER with trials of PO - now s/p [...] . - C-collar at all times, use AMMUNITION COMPONENTS INSPECTOR when OOB - Follow-up with Neurosurgery on 10/21 with repeat X-rays #Blunt abdominal trauma #Splenic laceration S/p laparotomies x2. Fascia closed 09/02 Wound vac removed by patient, but wound remains duke n/dry/intact. [place] removed 09/17. #Left hemothorax Chest tube placed [...] PDTAttending: I saw and examined Diogenes Temple ([id number]) with Christian Kelley PA-C on morning rounds [...] TPN is not an opt imal intermediate manager strategy, would prefer not to place surgical feeding tube if possible given r elatively recent damage control laparotomy and high risk of Mr. Temple pulling it out. Have tried DHT several times and it seems to worsen delirium and he pulls it out frequently. Tit ration of haldol in conjunction with psychiatry. Fidelina Shields MD [facility] Division of Trauma, Critical Care and Acute Care Surgery Office: [phone] Pager: [phone] Christian Kelley PA-C - 09/28/2017 1:01 PM [...] he said, who, ariel? And then the OVERSEER KOSHER KITCHEN helped him make a call to her. [...] EOMs intact to exam Neck: in [place] collar Respiratory: CTA bilaterally, lungs symmetrical, equal [...] very agitated today. - EKG today with Maple QTc calculated to be 428 - optimize [...] AMS & delirium - numerous evaluations by PYROTECHNIC MIXER with trials of PO - now s/p [...] . - C-collar at all times, use AMMUNITION COMPONENTS INSPECTOR when OOB - Follow-up with Neurosurgery on 10/21 with repeat X-rays #Blunt abdominal trauma #Splenic laceration S/p laparotomies x2. Fascia closed 09/02 Wound vac removed by patient, but wound remains duke n/dry/intact. [place] removed 09/17. #Left hemothorax Chest tube placed [...] more toda y. Chaz Hernandez MD, FACS [place], Trauma, Critical Care and Acute Care Surgery Chaz Hernandez MD - 09/28/2017 10:13 AM PDTTrauma Staff Seen and examined this AM with team. I have concerns abotu behaviour, as he is consistently threatening RN and ancillary staff, even attempting swings. Behavior seems worse at night. I would favor increasing night time Haldol dose, and following EKGs. Chaz Hernandez MD, FACS [place], Trauma, Critical Care and Acute Care Surgery [...] Dallin Bourgeois MD Neurosurgery PGY1 | Pager #[phone] Christian Begum PA-C - 09/27/2017 7:31 AM [...] able to have a linear conversation briefly PYROTECHNIC MIXER requesting repeat barium swallow Current meds: I [...] incision healing , suture c/d/I Neck: in AMMUNITION COMPONENTS INSPECTOR Respiratory: unlabored on room air, lungs [...] AMS & delirium - numerous evaluations by PYROTECHNIC MIXER with trials of PO - now s/p [...] . - C-collar at all times, use AMMUNITION COMPONENTS INSPECTOR when OOB - Follow-up with Neurosurgery on 10/21 with repeat X-rays #Blunt abdominal trauma #Splenic laceration S/p laparotomies x2. Fascia closed 09/02 Wound vac removed by patient, but wound remains duke n/dry/intact. [place] removed 09/17. #Left hemothorax Chest tube placed [...] for now. EM CUNNINGHAM MD [facility] [address] [place] [address] Christian Kelley PA-C - 09/26/2017 6:48 AM [...] scalp crani incision c/d/I Neck: in [place] collar Respiratory: unlabored on room air CV: [...] AMS & delirium - numerous evaluations by PYROTECHNIC MIXER with trials of PO - now s/p [...] . - C-collar at all times, use AMMUNITION COMPONENTS INSPECTOR when OOB - Follow-up with Neurosurgery [...] and TPN. EM CUNNINGHAM MD [facility] [address] [place] [address] Christian Kelley PA-C - 09/25/2017 7:49 AM [...] HEENT: EOMs intact to exam Neck: in AMMUNITION COMPONENTS INSPECTOR brace Respiratory: unlabored on room air [...] AMS & delirium - numerous evaluations by PYROTECHNIC MIXER with trials of PO - now s/p [...] . - C-collar at all times, use AMMUNITION COMPONENTS INSPECTOR when OOB - Follow-up with Neurosurgery [...] Continue TPN. EM CUNNINGHAM MD [facility] [address] [place] [address] Christian Kelley PA-C - 09/24/2017 11:07 AM [...] with agitation Having difficulty swallowing again - PYROTECHNIC MIXER to re-eval and obtain barium swallow Current [...] HEENT: EOMs intact to exam Neck: in AMMUNITION COMPONENTS INSPECTOR brace Respiratory: CTA bilaterally, lungs symmetrical, equal chest wall rise, no retractions CV: RRR GI: non distended, last BM 09/23 : good urine output Extremities: SCD's in place, no peripheral edema, wiggles toes and toes pink and well perfu sed Musculoskeletal: 08/31 strength in bilateral marketing automation manager (but with slightly weaker on left) , [...] seroquel dose QHS for insomnia/restlessness at [facility] - Haldol 5mg q12hr prn [...] likely 2/2 AMS & delirium - Failed PYROTECHNIC MIXER eval 09/19 & 09/20, made NPO & dobhoff reinserted 09/21 but pulled overnight - Per PYROTECHNIC MIXER on 09/21, ok for therapeutic pureed with [...] . - C-collar at all times, use AMMUNITION COMPONENTS INSPECTOR when OOB - Follow-up with Neurosurgery on 10/21 with repeat X-rays #Blunt abdominal trauma #Splenic laceration S/p laparotomies x2. Fascia closed 09/02 Wound vac removed by patient, but wound remains duke n/dry/intact. [place] removed 09/17. #Left hemothorax Chest tube placed [...] for dehiscence. EM CUNNINGHAM MD [facility] [address] [place] [address] Ginette Campos PA-C - 09/24/2017 9:31 AM [...] 4 extremities Unable to assess drift. Motor: [employer] Supervisor Bicep Tricep Delt R 5 5 [...] or concerns. Ginette Campos PA-C [facility] [address] [place] [phone] ELLGabriel Atkins AGACNP - 09/23/2017 6:32 AM [...] hiscence, draining minimal serosang fluid Neck: in AMMUNITION COMPONENTS INSPECTOR brace Respiratory: unlabored on room air [...] likely 2/2 AMS & delirium - Failed PYROTECHNIC MIXER eval 09/19 & 09/20, made NPO & dobhoff reinserted 09/21 but pulled overnight - Per PYROTECHNIC MIXER on 09/21, ok for therapeutic pureed with [...] . - C-collar at all times, use AMMUNITION COMPONENTS INSPECTOR when OOB - Follow-up with Neurosurgery on 10/21 with repeat X-rays #Blunt abdominal trauma #Splenic laceration S/p laparotomies x2. Fascia closed 09/02 Wound vac removed by patient, but wound remains duke n/dry/intact. [place] removed 09/17. #Left hemothorax Chest tube placed [...] dysphagia & delir ium improves Sherine Sarmiento, [facility] [place]g [phone] Dallin Deshpande MD - 09/22/2017 8:03 AM [...] Dallin Bourgeois MD Neurosurgery PGY1 | Pager #[phone] [facility] AGACNP - 09/22/2017 6:52 AM PDTFormatting [...] 24hr events: - Therapeutic purees initiated by PYROTECHNIC MIXER yesterday - Trickle feeds via Dobbhoff, pt pulled Dobbhoff yesterday evening- not replaced - WEB WORKER called around 2129 for new left facial droop (see separate notes), CT revealed increa se in SDH from 12 to 17mm with no change in midline shift. Exam stabilized [facility] CT [facility] - NSG and stroke [...] Slight left facial droop Neck: in [place] collar Respiratory: unlabored on room air CV: [...] seroquel dose QHS for insomnia/restlessness at [facility]- - Repeat ECG 09/22 with Q Tc WNL. - Haldol 5mg q12hr prn for severe agitation #Substance abuse, concern for Alcohol withdrawal - CIWA discontinued 09/08, not scoring. - Thiamine & folate started 09/21 #Dysphagia, risk for aspiration #Protein calorie malnutirtion - likely 2/2 AMS & delirium - Failed PYROTECHNIC MIXER eval 09/19 & 09/20, made NPO & dobhoff reinserted 09/21 but pulled overnight - Per PYROTECHNIC MIXER on 09/21, ok for therapeutic pureed with [...] . - C-collar at all times, use AMMUNITION COMPONENTS INSPECTOR when OOB - Follow-up with Neurosurgery [...] when dysphagia & delirium improves Sherine Sarmiento, [facility] Pg [phone] Associated attestation - Nubia Nieto MD,MPH - [...] Care & Acute Care Surgery [facility] [place] [phone] Sami Black - 09/21/2017 10:25 PM PDTBrief [...] in the morning. Plan: -neuro checks; page [phone] for any decline in neurological examination -pain control -Hard C collar at all times and place AMMUNITION COMPONENTS INSPECTOR prior to mobilizing OOB. Anticipated duration of Collar/AMMUNITION COMPONENTS INSPECTOR is 12 weeks -repeat CT head for any new decline in neurological exam and page [phone] -NPO at midnight tonight -please hold tonight's planned dose of Lovenox -further recommendations in the morning Sami Black MD, PhD PGY-3 Resident Neurosurgery [id number] signed by Sami Black at 09/21/2017 10:50 PM PDTCleSherine estrella, [facility] - 09/21/2017 7:10 AM PDTFormatting of [...] Provena placem ent 24hr events: - Failed PYROTECHNIC MIXER eval again yest morning, continued NPO - [...] Dobbhoff tube in place Neck: in [place] collar Respiratory: unlabored on room air CV: [...] likely 2/2 AMS & delirium - Failed PYROTECHNIC MIXER eval 09/19 & 09/20, made NPO & dobhoff reinserted yesterday - Trickle feeds started this am at 20ml/hr, increase very slowly by 10ml every 12 hrs to go al of 75 due to hx of mesenteric hematomas and previous inability to tolerate TF - Per PYROTECHNIC MIXER today, ok for therapeutic pureed with nectar [...] . - C-collar at all times, use AMMUNITION COMPONENTS INSPECTOR when OOB - Follow-up with Neurosurgery on 10/21 with repeat X-rays #Blunt abdominal trauma #Splenic laceration S/p laparotomies x2. Fascia closed 09/02 Wound vac removed by patient, but wound remains duke n/dry/intact. [place] removed 09/17. #Left hemothorax Chest tube placed [...] & delirium [place] [phone] Associated attestation - Fidelina Shields MD - 09/21/2017 9:36 PM PDTAttending: I saw and examined Diogenes Temple ([id number]) with KESHAWN Alexander on mornin g rounds [...] enough to re-trial PO. Fidelina Shields MD [facility] Division of Trauma, Critical Care and Acute Care Surgery Office: [phone] Pager: [phone] Sherine Sarmiento AGACNP - 09/20/2017 7:41 AM [...] haldol given yesterday afternoon for agitation - PYROTECHNIC MIXER paged to re-eval in afternoon after concern for aspiration, made NPO by PYROTECHNIC MIXER - DARNELL SOLANO Current meds: I have [...] pupil 3 and reactive Neck: in [place] collar Respiratory: unlabored on room air CV: [...] thick/pureed d iet. Made NPO yesterday by PYROTECHNIC MIXER after concern for aspiration. This is likely 2/2 waxing & wan ing delirium & AMS - PYROTECHNIC MIXER re-eval today recommend continue NPO d/t overt clinical signs of aspiration - Place Dobbhoff tube and restart feeds, slowly progress to goal - Stop TPN when tolerating tube feeds - PYROTECHNIC MIXER will follow closely, as his AMS improves [...] . - C-collar at all times, use AMMUNITION COMPONENTS INSPECTOR when OOB - Follow-up with Neurosurgery on 10/21 with repeat X-rays #Blunt abdominal trauma #Splenic laceration S/p laparotomies x2. Fascia closed 09/02 Wound vac removed by patient, but wound remains duke n/dry/intact. [place] removed 09/17. #Left hemothorax Chest tube placed [...] & delirium i [place] [phone] Associated attestation - Fidelina Shields MD - 09/20/2017 9:34 PM PDTAttending: I saw and examined Diogenes Temple ([id number]) with KESHAWN Alexander on mornin g rounds [...] dispo planning when able. Fidelina Shields MD [facility] Division of Trauma, Critical Care and Acute Care Surgery Office: [phone] Pager: [phone] Mary Medrano MD,MPH - 09/19/2017 6:22 AM [...] downgraded from thin to thick liquids by PYROTECHNIC MIXER Current meds: I have independently reviewed current [...] small Right fluctuant pseudomeningocele Neck: in [place] collar Respiratory: unlabored on room air CV: [...] DHT on09/19. - Cleared for diet by PYROTECHNIC MIXER, tolerating purees, 749 Calories yesterday - Restart Calorie count: if taking >700 again will be OK for full po diet, otherwise replac e DHT and restart TF - Stop TPN tomorrow regardless - Still considering repeat CT abdomen/pelvis #Dysphagia DHTreplaced overnight 09/07. TF held due to emesis and possible ileus, aspiration risk. DH T pulled overnight on 09/18 - PYROTECHNIC MIXER as able Resolved or chronic issues/Plan: #BIG 3 TBI #Right synthetic cranioplasty Neurosurgery consulted. Non-operative management. Last head CT 09/12 stable. Expected pseudo meningocele. Left-sided deficits consistent with baseline. - Stat head CT for any neurologic decline #C7 bilateral lamina fractures #C6-T2 spinous process fractures Neurosurgery consulted. Non-operative management. Upright cervical X-rays completed on 09/14 . - C-collar at all times, use AMMUNITION COMPONENTS INSPECTOR when OOB - Follow-up with Neurosurgery [...] M.D., M.P.H. Neurological Surgery Resident PGY-1 Pager: [phone] Associated attestation - Fidelina Shields MD - 09/19/2017 1:36 PM PDTAttending: I saw and examined Diogenes Temple ([id number]) with the residents on morning rounds 09/19/17 and agree with the assessment and plan as outlined in this note and participated in the plan aashish of care. Improving po intake, will titrate TPN. Plan to DC TPN tomorrow and transition to PO vs PO + TF depending on calorie counts. Once of restraints will begin looking for placement. Fidelina Shields MD [facility] Division of Trauma, Critical Care and Acute Care Surgery Office: [phone] Pager: [phone] Mary Medrano MD,MPH - 09/18/2017 6:17 AM [...] pseudomeningocele,Dobhoff tubein p lace Neck: in [place] collar Respiratory: unlabored on room air CV: [...] holding TF - Cleared for diet by PYROTECHNIC MIXER, tolerating small quantities of purees - Will need repeat CT A/P within 1-2 days #Hypervolemia I&O approaching even. Appears to have been auto-diuresing. - Continue to monitor urine output - Monitor electrolytes, replete prn #Dysphagia DHTreplaced overnight 09/07. TF held due to emesis and possible ileus, aspiration risk. - PYROTECHNIC MIXER as able #C7 bilateral lamina fractures #C6-T2 spinous process fractures Neurosurgery consulted. Non-operative management. Upright cervical X-rays completed on 09/14 . - C-collar at all times, use AMMUNITION COMPONENTS INSPECTOR when OOB - Follow-up with Neurosurgery [...] by patient, but wound remains duke n/dry/intact. [place] removed 09/17. #Left hemothorax Chest tube placed [...] M.D., M.P.H. Neurological Surgery Resident PGY-1 Pager: [phone] signed by Fidelina Shields MD at 09/19/2017 3:58 PM PDT Associated attestation - Fidelina Shields MD - 09/19/2017 3:58 PM PDTAttending: I saw and examined Diogenes Temple ([id number]) with the residents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 [facility] [...] first rib fx commuted. Pt is Intubated, Tazlina J collar in place, banana bag with [...] DEPT OF | [address] | [place], [place] | | | CARDIOLOGY | [address] | [address] | | + + + + + [...] | | | LABORATORY | | | [facility] | | | SERVICES, | | | [...] | + + + + + | [facility] | [address] | [place] [address] | | | SERVICES, CORE | VILMA [...] | [facility] | [address] [facility] | [place] [address] | | | SERVICES, CORE | VILMA [...] DEPT OF | [address] | [place], [place] | | | CARDIOLOGY | [address] | [address] | | + + + + + [...] | + + + + + | [facility] | [address] | [place] [address] | | | NATALEE WORTHINGTON | VILMA [...] + | [facility] | [address] [facility] | [place], [place] | | | CARDIOLOGY | [address] | [address] | | + + + + + [...] | | + +---------+ + + | [facility] RADIOLOGY | | | | | VAS [...] | [facility] | [address] [address] [facility] [address] | [place] [address] | | | SERVICES, [facility] | [address] | | | + + + + + X-RAY ABD TUBE OR CATH EVAL W CONTRAST (12/03/2017 12:55 AM PDT) + + | Specimen | + + | | + + + + + | Narrative | Performed At | + + + | EXAM: ABD TUBE OR CATH EVAL W CONTRAST HISTORY: eval G tube | [facility] | | replacement. COMPARISON: CT chest abdomen [...] Note | + + | Service Account, Tensorcomant Res In Interface - 12/03/2017 10:30 AM [...] DEPT OF | [address] | [place], [place] | | | CARDIOLOGY | [address] | [address] | | + + + + + [...] | + + + + + | [facility] | [address] [facility] [address] [facility] [address] | [place] [address] | | | NATALEE WORTHINGTON | VILMA [...] + | [facility] - | [address] | [place] [address] | | | [place] | | | [...] [facility] | [address] | [place] [address] | | | NATALEE WORTHINGTON | VILMA [...] | + + + + + | [facility] | [address] [facility] [facility] | [place] [address] | | | SERVICES, CORE | VILMA [...] [facility] | [address] | [place] [address] | | | SERVICES, CORE | [address] [...] | | | LABORATORY | | | [facility]I | | | SERVICES, | | | [...] the MDRD equation recommended by the | [facility] | | National Kidney Disease Education Program. [...] | + + + + + | [facility] | [address] | [place] [address] | | | NATALEE WORTHINGTON | VILMA [...] | + + + + + | [facility] | [address] | [place] [address] | | | NATALEE WORTHINGTON | VILMA [...] DEPT OF | [address] | [place], [place] | | | CARDIOLOGY | [address] | [address] | | + + + + + [...] OF | [address] | [place], [place] | | | CARDIOLOGY | [address] | [address] | | + + + + + [...] | | | LABORATORY | | | [facility] | | | SERVICES, | | | [...] | + + + + + | [facility] | [address] | [place] [address] | | | EILN, CORE | [address] | | | [...] | + + + + + | [facility] | [address] | [place] [address] | | | NATALEE WORTHINGTON | VILMA [...] DEPT OF | [address] | [place], [place] | | | CARDIOLOGY | [address] | [address] | | + + + + + [...] Note | + + | Service Account, Dustcloud Res In Interface - 11/26/2017 12:36 PM [...] + | [facility] - | [address] | [place] [address] | | | [place] | | | [...] | + + + + + | [facility] | [address] | [place] [address] | | | SERVICES, CORE | VILMA [...] | + + + + + | [facility] | [address] [facility] | [place] [address] | | | SERVICES, CORE | [address] [...] | + + + + + | [facility] | [address] [facility] [facility] | [place] [address] | | | SERVICES, CORE | [address] [...] [facility] | [address] | [place] [address] | | | SERVICES, CORE | PARK [...] | | | LABORATORY | | | [facility]I | | | SERVICES, | | | [...] | + + + + + | [facility] | [address] [facility] [address] [facility] | [place] [address] | | | SERVICES, CORE | VILMA [...] | + + + + + | [facility] | [address] [facility] [address] [facility] | [place] [address] | | | SERVICES, CORE | P[address] [...] + + | [facility] DEPT OF | [address] | [place], [place] | | | CARDIOLOGY | [address] | [address] | | + + + + + [...] OF | [address] | [place], [place] | | | CARDIOLOGY | [address] | [address] | | + + + + + [...] DEPT OF | [address] | [place], [place] | | | CARDIOLOGY | [address] | [address] | | + + + + + [...] DEPT OF | [address] | [place], [place] | | | CARDIOLOGY | [address] | [address] | | + + + + + [...] | | | LABORATORY | | | [facility] | | | SERVICES, | | | [...] | + + + + + | [facility] | [address] | [place] [address] | | | SERVICES, CORE | VILMA [...] | + + + + + | [facility] | [address] | [place] [address] | | | SERVICES, CORE | VILMA [...] [facility] | | | | | [facility] | | | | + +---------+ [...] DEPT OF | [address] | [place], [place] | | | CARDIOLOGY | [address] | [address] | | + + + + + [...] + + | [facility] DE[facility] OF | [address] | [place], [place] | | | CARDIOLOGY | [address] | [address] | | + + + + + [...] | + + + + + | [facility] | [address] | [place] [address] | | | SERVICES, CORE | VILMA [...] | + + + + + | [facility] | [address] | [place] [address] | | | SERVICES, CORE | P[address] [...] + | [facility] - | [address] | [place] [address] | | | [place] | | | [...] | + + + + + | [facility] | [address] | [place] [address] | | | SERVICES, CORE | PARK [...] [facility] | [address] | [place] [address] | | | SERVICES, CORE | PARK [...] | | | LABORATORY | | | [facility] | | | SERVICES, | | | [...] the MDRD equation recommended by the | [facility] | | National Kidney Disease Education Program. [...] | + + + + + | [facility] | [address] [facility] [facility] | [place] [address] | | | SERVICES, CORE | VILMA [...] [facility] | [address] | [place] [address] | | | ELIN, NATALEE | VILMA [...] GEET OF | [address] | [place], [place] | | | CARDIOLOGY | [address] | [address] | | + + + + + [...] [facility] | [address] [facility] | [place], [place] | | | CARDIOLOGY | [address] | [address] | | + + + + + [...] | + + + + + | [facility] | [address] | [place] [address] | | | SERVICES, CORE | PARK [...] DEPT OF | [address] | [place], [place] | | | CARDIOLOGY | [address] | [address] | | + + + + + [...] | | | LABORATORY | | | [facility] | | | SERVICES, | | | [...] | + + + + + | [facility] | [address] | [place] [address] | | | SERVICES, CORE | PARK [...] | [facility] | [address] [facility] [facility] | [place] [address] | | | SERVICES, CORE | VILMA [...] DEPT OF | [address] | [place], [place] | | | CARDIOLOGY | [address] | [address] | | + + + + + [...] [facility] | [address] | [place] [address] | | | SERVICES, CORE | PARK [...] | | | LABORATORY | | | [facility] | | | SERVICES, | | | [...] the MDRD equation recommended by the | [facility] | | National Kidney Disease Education Program. [...] | + + + + + | [facility] | [address] | [place] [address] | | | ELIN, NATALEE | VILMA [...] + | [facility] - | [address] | [place] [address] | | | [place] | | | | + + + [...] | + + | Service Account, Kostas Lightera In Interface - 11/12/2017 1:46 PM PDT [...] [facility] DEPT OF | [address] [facility] | [place], [place] | | | CARDIOLOGY | [address] | [address] | | + + + + + [...] [facility] | [address] | [place] [address] | | | NATALEE WORTHINGTON | VILMA [...] + + + + + | [facility] - | [address] | [place] [address] | | | [place] | | | [...] GEET OF | [address] | [place] | | | CARDIOLOGY | [address] | [address] | | + + + + + [...] | + + + + + | [facility] | [address] [address] | [place] [address] | | | SERVICES, CORE | PARK [...] + | [facility] AIRPORT - | [address] | [place] [address] | | | [place] | | | [...] | + + + + + | [facility] | [address] | [place] [address] | | | SERVICESNATALEE | [address] [...] | + + + + + | [facility] | [address] [address] | [place] [address] | | | SERVICES, CORE | VILMA [...] | + + + + + | [facility] | [address] | [place] [address] | | | SERVICES, CORE | VILMA [...] | | | LABORATORY | | | OMANI | | | SERVICES, | | | [...] | + + + + + | [facility] | [address] [address] | [place] [address] | | | NATALEE WORTHINGTON | VILMA [...] | + + + + + | [facility] | [address] | [place] [address] | | | SERVICES, CORE | PARK [...] | + + + + + | [facility] | [address] [facility] [address] [facility] | [place] [address] | | | SERVICES, CORE | VILMA [...] | | | LABORATORY | | | OMANI | | | SERVICES, | | | [...] the MDRD equation recommended by the | [facility] | | National Kidney Disease Education Program. [...] [facility] | [address] | [place] [address] | | | SERVICES, CORE | VILMA [...] DEPT OF | [address] | [place], [place] | | | CARDIOLOGY | [address] | [address] | | + + + + + [...] | + + + + + | [facility] | [address] | [place] [address] | | | SERVICES, CORE [...] | | | LABORATORY | | | OMANI | | | SERVICES, | | | [...] | + + + + + | [facility] | [address] | [place] [address] | | | SERVICES, CORE | [address] | | | + + + + + MAGNESIUM, PLASMA (11/09/2017 4:18 AM PDT) + +-------+ + + + | Component | Value | Ref Range | Performed | Pathologist | | | | | At | Signature | + +-------+ + + + | MAGNESIUM,P | 2.0 | 1.6 - 2.6 mg/dL | [facility] | | | LASMA | | | [...] [facility] | [address] | [place] [address] | | | SERVICES, CORE | PARK [...] | | | LABORATORY | | | OMANI | | | SERVICES, | | | [...] + + | Performing | Address | City/State/[facility] | Phone Number | | Organization | | | | + + + + + | [facility] | [address] | [place] [address] | | | ELIN, NATALEE | [address]IL[address] [...] necessary, edited the report. I agree with [facility] report as now presented. | | [...] [facility] | [address] | [place] [address] | | | NATALEE WORTHINGTON | [address]IL[address] [...] | | | LABORATORY | | | OMANI | | | SERVICES, | | | [...] | + + + + + | [facility] | [address] | [place] [address] | | | SERVICES, CORE | VILMA [...] [facility] | [address] | [place], [place] | | | CARDIOLOGY | [address] | [address] | | + + + + + [...] | + + + + + | [facility] | [address] | [place], [place] | | | CARDIOLOGY | [address] | [address] | | + + + + + [...] | | | LABORATORY | | | OMANI | | | SERVICES, | | | [...] | + + + + + | [facility] | [address] | [place] [address] | | | SERVICES, CORE | PARK [...] LABORATORY | [address] | [place] [address] | | | SERVICES, CORE | VILMA [...] + + + + | PRODUCT | [id number] | | [facility] | | | UNIT [...] + + + + | EXPIRATION | [id number] | | [facility] | | | DATE [...] + + + + | BLOOD | [id number] | | [facility] | | | PRODUCT [...] | + + + + + | [facility] | [address] | [place] [address] | | | SERVICES, | [address] [...] + + + + | PRODUCT | [id number] | | [facility] | | | UNIT [...] + + + + | EXPIRATION | [id number] | | [facility] | | | DATE [...] + + + + | BLOOD | [id number] | | [facility] | | | PRODUCT [...] | + + + + + | [facility] | [address] | [place] [address] | | | SERVICES, | [address] [...] [facility] | [address] | [place] [address] | | | NATALEE WORTHINGTON | VIL[address] [...] | Reference range change effective 12/11/16. | [facility] | | | LABORATORY | | | NATALEE WORTHINGTON | + + + + + + + + | Performing | Address | City/State/Zipcode | Phone Number | | Organization | | | | + + + + + | [facility] | [address] | [place] [address] | | | NATALEE WORTHINGTON | PARK [...] | | | LABORATORY | | | OMANI | | | SERVICES, | | | [...] | + + + + + | [facility] | [address] | [place] [address] | | | SERVICES, CORE | [address] | | | + + + + + OPERATION RECORD (11/06/2017 12:27 AM PDT) + + | Procedure Note | + + | Magdiel Stock MD - 11/06/2017 12:27 AM PDT Date of Service: 11/05/2017 Attending | | Surgeon: Magdiel Stock MD Soundscriber Mechanic(s): Rg Aiken MD | | Preoperative Diagnoses: [...] his head was placed in a horseshoe railway head tender with his C-collar still | | [...] the incision down to the cranium. Once te-moak | | skull was reached circumferentially around the prior incision, a #1 Bruno was used | | to subperiosteally dissect [...] note for this encounter.Sonal Nunez, | | [facility] [id number] [place], [place] | | [id number] Orina, MDJB/MODLDD: 11/05/2017 20:38:01DT: 11/06/2017 | | 00:27:33Job #: [id number] | |HATTIE/DUC | | | | | | /[id number] | + + CT HEAD WO CONTRAST [...] Note | + + | Service Account, RadiMedlanes Res In Interface - 11/05/2017 8:20 PM [...] Surgeon: Magdiel | | | MD Dayami Soundscriber Mechanic: Rg Aiken MD Pre-op Diagnosis: | | [...] PGY-4 Neurological Surgery Pager | | | [phone] | | + + + CAPILLARY BLOOD GLUCOSE (NO CHG), POC (11/05/2017 7:11 PM PDT) + +---------+ + + + | Component | Value | Ref Range | Performed | Pathologist | | | | | At | Signature | + +---------+ + + + | BLOOD | 129 (H) | 70 - 99 mg/dL | [facility] - | | | GLUCOSE, | | [...] [facility] | [address] | [place], [place] | | | GLORIA GENAO OF CARE | [facility] | [address] | | | TESTS | | | [...] [facility] | [address] | [place], [place] | | | GLORIA GENAO OF GM | [address] | [address] | | | TESTS | | | [...] Note | + + | Service Account, Digital Envoy In Interface - 11/05/2017 11:31 AM PDT [...] | + + + + + | [facility] | [address] | [place] [address] | | | SERVICES, CORE | VILMA [...] | + + + + + | [facility] | [address] | [place] [address] | | | SERVICES, CORE | [address] [...] | | | LABORATORY | | | OMANI | | | SERVICES, | | | [...] the MDRD equation recommended by the | [facility] | | National Kidney Disease Education Program. [...] [facility] | [address] | [place] [address] | | | SERVICES, CORE | [...] | + + + + + | [facility] | [address] | [place] [address] | | | SERVICES, CORE | PARK [...] + + + + | PRODUCT | [id number] | | [facility] | | | UNIT [...] + + + + | EXPIRATION | [id number] | | [facility] | | | DATE [...] + + + + | BLOOD | [id number] | | [facility] | | | PRODUCT [...] | + + + + + | [facility] | [address] | [place] [address] | | | SERVICES, | [address] [...] + + + + | PRODUCT | [id number] | | [facility] | | | UNIT [...] + + + + | EXPIRATION | [id number] | | [facility] | | | DATE [...] + + + + | BLOOD | [id number] | | [facility] | | | PRODUCT [...] | + + + + + | [facility] | [address] | [place] [address] | | | SERVICES, | [address] [...] [facility] | [address] | [place] [address] | | | SERVICES, CORE | PARK [...] [facility] | [address] | [place] [address] | | | SERVICES, | [address] [...] [facility] | [address] | [place] [address] | | | SERVICES, | [address] [...] | + + + + + | [facility] | [address] | [place] [address] | | | SERVICES, CORE | PARK [...] DEPT OF | [address] | [place], [place] | | | CARDIOLOGY | [address] | [address] | | + + + + + [...] [facility] | [address] | [place] [address] | | | SERVICES, CORE | PARK [...] | + + + + + | [facility] | [address] | [place] [address] | | | NATLAEE WORTHINGTON | VIL[address] [...] + | [facility] - | [address] | [place] [address] | | | [place] | | | [...] [facility] | [address] | [place] [address] | | | NATALEE WORTHINGTON | VILMA [...] | + + + + + | [facility] | [address] [facility] [address] [facility] [facility] | [place] [address] | | | SERVICES, CORE | [address] [...] | | | LABORATORY | | | OMANI | | | SERVICES, | | | [...] the MDRD equation recommended by the | [facility] | | National Kidney Disease Education Program. [...] | + + + + + | [facility] | [address] | [place] [address] | | | SERVICES, CORE | [address] | | | + + + + + MAGNESIUM, PLASMA (11/04/2017 5:59 AM PDT) + +-------+ + + + | Component | Value | Ref Range | Performed | Pathologist | | | | | At | Signature | + +-------+ + + + | MAGNESIUM,P | 2.1 | 1.6 - 2.6 mg/dL | [facility] | | | [facility] | | | [...] [facility] | [address] | [place] [address] | | | NATALEE WORTHINGTON | VIL[address] [...] | + + + + + | [facility] | [address] | [place] [address] | | | NATALEE WORTHINGTON | VILMA [...] | | | LABORATORY | | | OMANI | | | SERVICES, | | | [...] | + + + + + | [facility] | [address] | [place] [address] | | | SERVICES, CORE | VIL[address] [...] | [facility] | [address] [facility] [address] [facility] | [place] [address] | | | SERVICES, CORE | [address] [...] | | | LABORATORY | | | OMANI | | | SERVICES, | | | [...] the MDRD equation recommended by the | [facility] | | National Kidney Disease Education Program. [...] [facility] | [address] | [place] [address] | | | SERVICES, CORE | VILMA [...] DEPT OF | [address] | [place], [place] | | | CARDIOLOGY | [address] | [address] | | + + + + + [...] | + + + + + | [facility] | [address] | [place] [address] | | | SERVICES, CORE | [address] [...] | | | LABORATORY | | | OMANI | | | SERVICES, | | | [...] | + + + + + | [facility] | [address] | [place] [address] | | | SERVICES, CORE | [address] | | | + + + + + CT STEREOTACTIC HEAD WO CONTRAST (10/31/2017 5:58 PM PDT) + + | Specimen | + + | | + + + + + | Narrative | Performed At | + + + | EXAM: CT HEAD WITHOUT CONTRAST HISTORY: Surgical planning for | [facility] | | upcoming cranioplasty. History of multiple [...] Note | + + | Service Account, Dustcloud Res In Interface - 10/31/2017 8:22 PM [...] DEPT OF | [address] | [place], [place] | | | CARDIOLOGY | [address] | [address] | | + + + + + [...] | | | LABORATORY | | | OMANI | | | SERVICES, | | | [...] the MDRD equation recommended by the | [facility] | | National Kidney Disease Education Program. [...] | + + + + + | [facility] | [address] | [place] [address] | | | SERVICES, CORE | PARK [...] [facility] | [address] | [place] [address] | | | SERVICES, NATALEE | VILMA [...] - [facility] | [address] | [place], [place] | | | GL[facility]IA GENAO OF CARE | [address] | [address] | | | TESTS | | | [...] [facility] | [address] | [place] [address] | | | SERVICES, CORE | PARK [...] | | | LABORATORY | | | OMANI | | | SERVICES, | | | [...] the MDRD equation recommended by the | [facility] | | National Kidney Disease Education Program. [...] + + | Performing | Address | City/State[facility] | Phone Number | | Organization | | | | + + + + + | [facility] | [address] | [place] [address] | | | ELIN, CORE | VILMA [...] Note | + + | Service Account, Digital Envoy In Interface - 10/29/2017 12:13 PM PDT [...] [facility] | [address] | [place], [place] | | | [facility] | [address] | [address] | | | TESTS | | | [...] | + + + + + | [facility] | [address] | [place] [address] | | | SERVICES, CORE | [address] [...] | | | LABORATORY | | | OMANI | | | SERVICES, | | | [...] | + + + + + | [facility] | [address] | [place] [address] | | | SERVICES, CORE | VILMA [...] (H) | 70 - 99 mg/dL | [facility] - | | | GLUCOSE, | | [...] [facility] | [address] | [place], [place] | | | GLORIA GENAO OF [facility] | [address] | [address] | | | TESTS | | | [...] DEPT OF | [address] | [place], [place] | | | CARDIOLOGY | [address] | [address] | | + + + + + CAPILLARY BLOOD GLUCOSE (NO CHG), POC (10/28/2017 12:00 PM PDT) + +---------+ + + + | Component | Value | Ref Range | Performed | Pathologist | | | | | At | Signature | + +---------+ + + + | BLOOD | 141 (H) | 70 - 99 mg/dL | [facility] - | | | GLUCOSE, | | [...] [facility] | [address] | [place], [place] | | | [facility] | [address] | [address] | | | TESTS | | | [...] [facility] | [address] | [place], [place] | | | GLORIA GENAO OF [facility] | [facility] | [address] | | | TESTS | | | [...] | + + + + + | [facility] | [address] | [place] [address] | | | SERVICES, NATALEE | VILMA [...] + | [facility] - | [address] | [place] [address] | | | [place] | | | [...] [facility] | [address] | [place] [address] | | | NATALEE WORTHINGTON | VILMA [...] | + + + + + | [facility] | [address] [facility] [facility] [facility] | [place] [address] | | | SERVICES, NATALEE | VILMA [...] [facility] | [address] | [place] [address] | | | SERVICES, CORE | PARK [...] | | | LABORATORY | | | OMANI | | | SERVICES, | | | [...] the MDRD equation recommended by the | [facility] | | National Kidney Disease Education Program. [...] | + + + + + | [facility] | [address] | [place] [address] | | | NATALEE WORTHINGTON | VILMA [...] | + + + + + | [facility] | [address] | [place] [address] | | | NATALEE WORTHINGTON | PARK [...] - [facility] | [address] | [place], [place] | | | [facility] GE[facility]O OF CARE | [facility] | [address] | | | TESTS | | | [...] (H) | 70 - 99 mg/dL | [facility] - | | | GLUCOSE, | | [...] [facility] | [address] | [place], [place] | | | [facility] | [address] | [address] | | | TESTS | | | [...] Note | + + | Service Account, Digital Envoy In Interface - 10/28/2017 9:21 AM PDT [...] and TPN Procedure | | | location: Unit:[facility] Room: 4 Providers: Attending name: | [...] correct | | | patient, procedure, equipment, account support analyst and site/side marked as | [...] vein. Catheter lot number: | | | [id number] with a length of 55 cm was [...] - [facility] | [address] | [place], [place] | | | [facility] | [address] | [address] | | | TESTS | | | [...] DEPT OF | [address] | [place], [place] | | | CARDIOLOGY | [address] | [address] | | + + + + + [...] [facility] | [address] | [place], [place] | | | [facility] GE[facility] OF CARE | [address] | [address] | | | TESTS | | | [...] | + + + + + | [facility] | [address] [address] [facility] | [place] [address] | | | SERVICES, NATALEE | VILMA [...] | | | LABORATORY | | | OMANI | | | SERVICES, | | | [...] | + + + + + | [facility] | [address] | [place] [address] | | | SERVICES, CORE | VILMA [...] [facility] | [address] | [place], [place] | | | GLORIA GENAO OF [facility] | [facility] | [address] | | | TESTS | | | [...] [facility] | [address] | [place], [place] | | | GLORIA GENAO OF [facility] | [facility] | [address] | | | TESTS | | | [...] (H) | 70 - 99 mg/dL | [facility] - | | | GLUCOSE, | | [...] [facility] | [address] | [place], [place] | | | [facility] CARE | [address] | [address] | | | TESTS | | | [...] [facility] | [address] | [place] [address] | | | SERVICES, CORE | PARK [...] | | | LABORATORY | | | OMANI | | | SERVICES, | | | [...] | + + + + + | [facility] | [address] | [place] [address] | | | NATALEE WORTHINGTON | VILMA [...] (H) | 70 - 99 mg/dL | [facility] - | | | GLUCOSE, | | [...] [facility] | [address] | [place], [place] | | | [facility] GE[facility]O OF [facility] | [address] | [address] | | | TESTS | | | [...] | | | LABORATORY | | | O[facility]I | | | SERVICES, | | | [...] | + + + + + | [facility] | [address] | [place] [address] | | | ELIN, NATALEE | VILMA [...] 87 | 70 - 99 mg/dL | [facility] - | | | GLUCOSE, | | [...] [facility] | [address] | [place], [place] | | | [facility] CARE | [address] | [address] | | | TESTS | | | [...] DEPT OF | [address] | [place], [place] | | | CARDIOLOGY | [address] | [address] | | + + + + + [...] [facility] | [address] | [place], [place] | | | [facility] OF [facility] | [facility] | [address] | | | TESTS | | | [...] DEPT OF | [address] | [place], [place] | | | CARDIOLOGY | [address] | [address] | | + + + + + [...] | + + + + + | [facility] | [address] | [place] [address] | | | SERVICES, NATALEE | VILMA [...] + | [facility] - | [address] | [place] [address] | | | [place] | | | | + + + [...] | + + + + + | [facility] | [address] | [place] [address] | | | SERVICES, CORE | VILMA [...] [facility] | [address] | [place] [address] | | | SERVICES, CORE | PARK [...] [facility] | [address] | [place] [address] | | | NATALEE WORTHINGTON | VILMA [...] [facility] | [address] | [place] [address] | | | SERVICES, CORE | PARK [...] | + + + + + | [facility] | [address] | [place] [address] | | | SERVICES, CORE | VILMA [...] [facility] | [address] | [place] [address] | | | SERVICES, CORE | PARK [...] | + + + + + | [facility] | [address] | [place] [address] | | | ELIN, NATALEE | VILMA [...] LABORATORY | [address] | [place] [address] | | | SERVICES, CORE | PARK [...] [facility] | [address] | [place] [address] | | | SERVICES, CORE | PARK [...] [facility] | [address] | [place] [address] | | | SERVICES, CORE | PARK [...] | | | LABORATORY | | | OMANI | | | SERVICES, | | | [...] the MDRD equation recommended by the | [facility] | | National Kidney Disease Education Program. [...] | + + + + + | [facility] | [address] [facility] | [place] [address] | | | NATALEE WORTHINGTON | VILMA [...] | | | correct patient, procedure, equipment, account support analyst and site/side | | | [...] | area Basilic vein. Catheter lot number: [id number] with a length of 55 | | [...] + | [facility] | [address] | [place], [place] | | | [facility] | [address] | [address] | | | TESTS | | | [...] | | Surgical Critical Care, PGY7 Pager: [phone] | | + + + CAPILLARY BLOOD [...] [facility] | [address] | [place], [place] | | | [facility] | [address] | [address] | | | TESTS | | | [...] [facility] | [address] | [place], [place] | | | [facility] | [facility] | [address] | | | TESTS | | | [...] | | | LABORATORY | | | [facility] | | | SERVICES, | | | [...] | + + + + + | [facility] | [address] | [place] [address] | | | NATALEE WORTHINGTON | VILMA [...] [facility] | [address] | [place] [address] | | | ELIN, NATALEE | PARK [...] + + + | [facility] | [address] | [place], [place] | | | [facility] GE[facility] OF [facility] | [address] | [address] | | | TESTS | | | [...] | + + + + + | [facility] | [address] | [place] [address] | | | SERVICES, CORE | PARK [...] | | | LABORATORY | | | OMANI | | | SERVICES, | | | [...] | + + + + + | [facility] | [address] | [place] [address] | | | SERVICES, CORE | PARK [...] + + | [facility] | [address] | [place], [place] | | | CARDIOLOGY | [address] | [address] | | + + + + + IR GASTROSTOMY TUBE EXCHANGE (10/22/2017 2:42 PM PDT) + + | Specimen | + + | | + + + + + | Narrative | Performed At | + + + | Procedure: Gastrostomy tube exchange Primary attending | [facility] | | knowledge management consultant: Shade Nix M.D. Preoperative diagnosis: | RADIOLOGY VOICE | | Malfunctioning Gastrostomy tube Postoperative diagnosis: Same | RECOGNITION | | Operations: Operation 1. Removal of existing Gastrostomy tube | | | over a guide wire Operation 2. Placement of 24 Jamaican GABRIEL | | | gastrostomy over guide [...] a stiff glide wire the new 24 Jamaican gastrostomy tube was | | | inserted. [...] Procedure: | | Gastrostomy tube exchangePrimary attending knowledge management consultant: Shade Nix | | BrynPreoperative diagnosis: Malfunctioning Gastrostomy tubePostoperative diagnosis: | | SameOperations:Operation 1. Removal of existing Gastrostomy tube over a guide | | wireOperation 2. Placement of 24 Jamaican GABRIEL gastrostomy over guide wireNo sedation was [...] glide wire the | | new 24 Jamaican gastrostomy tube was inserted. The position of [...] stiff g lide wire the new 24 Jamaican | |gastrostomy tube was inserted. The position [...] Note | + + | Service Account, RadiMedlanes Res In Interface - 10/22/2017 10:34 AM [...] + + | [facility] OF | [address] | [place], [place] | | | CARDIOLOGY | [address] | [address] | | + + + + + [...] | + + + + + | [facility] | [address] | [place] [address] | | | SERVICES, CORE | PARK [...] | | | LABORATORY | | | [facility] | | | SERVICES, | | | [...] | + + + + + | [facility] | [address] | [place] [address] | | | SERVICES, CORE | VILMA [...] [facility] | [address] | [place], [place] | | | CARDIOLOGY | [address] | [address] | | + + + + + [...] | | | LABORATORY | | | OMANI | | | SERVICES, | | | [...] | + + + + + | [facility] | [address] | [place] [address] | | | SERVICES, CORE | VILMA [...] | + + + + + | [facility] | [address] | [place] [address] | | | SERVICES, CORE | PARK [...] [facility] OF | [address] | [place], [place] | | | CARDIOLOGY | [address] | [address] | | + + + + + [...] | + + + + + | [facility] | [address] | [place] [address] | | | SERVICES, CORE | VILMA [...] | | | LABORATORY | | | OMANI | | | SERVICES, | | | [...] | + + + + + | [facility] | [address] | [place] [address] | | | SERVICES, CORE | VILMA [...] | + + + + + | [facility] | [address] | [place], [place] | | | CARDIOLOGY | [address] | [address] | | + + + + + [...] | | | LABORATORY | | | [facility]I | | | SERVICES, | | | [...] [facility] | [address] | [place] [address] | | | SERVICES, CORE | PARK [...] [facility] | [address] | [place] [address] | | | SERVICES, CORE | VILMA [...] DEPT OF | [address] | [place], [place] | | | CARDIOLOGY | [address] | [address] | | + + + + + [...] | | | LABORATORY | | | [facility] | | | SERVICES, | | | [...] the MDRD equation recommended by the | [facility] | | National Kidney Disease Education Program. [...] [facility] | [address] | [place] [address] | | | SERVICES, CORE | PARK [...] | + + + + + | [facility] | [address] | [place] [address] | | | SERVICES, CORE | VILMA [...] | | + +---------+ + + | [facility] | | | | | VASC [...] DEPT OF | [address] | [place], [place] | | | CARDIOLOGY | [address] | [address] | | + + + + + [...] [facility] | [address] | [place], [place] | | | GLORIA GENAO [facility] | [facility] | [address] | | | TESTS | | | [...] [facility] | [address] | [place] [address] | | | NATALEE [place] | V[place]MA [...] [facility] | [address] CHAMBERS | [place], [place] | | | [facility] | [address] | [address] | | | TESTS | | | [...] DEPT OF | [address] | [place], [place] | | | CARDIOLOGY | [address] | [address] | | + + + + + [...] [facility] | [address] | [place] [address] | | | NATALEE WORTHINGTON | [address] [...] | | | LABORATORY | | | OMANI | | | SERVICES, | | | [...] | + + + + + | [facility] | [address] | [place] [address] | | | SERVICES, NATALEE | VILMA [...] | + + + + + | [facility] | [address] | [place] [address] | | | NATALEE WORTHINGTON | PARK [...] [facility] | [address] | [place], [place] | | | [facility] | [address] | [address] | | | TESTS | | | [...] [facility] | [address] | [place], [place] | | | [facility] | [address] | [address] | | | TESTS | | | [...] [facility] | [address] | [place] [address] | | | SERVICES, NATALEE | VILMA [...] | | | LABORATORY | | | OMANI | | | SERVICES, | | | [...] | + + + + + | [facility] | [address] [facility] | [place] [address] | | | SERVICES, CORE | [address] | | | + + + + + OPERATION RECORD (10/12/2017 8:50 PM PDT) + + | Procedure Note | + + | Pilar Cotto MD - 10/12/2017 8:50 PM PDT Date of Service: 10/12/2017 | | Attending Surgeon: Chaz Hernandez MD Soundscriber Mechanic(s): Randell Dixon M.D., | | fellow. George [...] saline. We then | | placed a 19-Jamaican drain deep into the abscess cavity, tracking [...] 10/12/2017 19:50:06DT: 10/12/2017 20:50:54Job #: | | [id number] | + + X-RAY PORTABLE CHEST 1 [...] Note | + + | Service Account, Dustcloud Res In Interface - 10/13/2017 9:04 AM [...] [facility] | [address] | [place], [place] | | | [facility] | [address] | [address] | | | TESTS | | | [...] Note | + + | Service Account, Dustcloud Res In Interface - 10/12/2017 5:05 PM [...] | | + +---------+ + + | [facility] | | | | | VOICE [...] [facility] | [address] | [place] [address] | | | SERVICES, CORE | PARK [...] | | | LABORATORY | | | OMANI | | | SERVICES, | | | [...] the MDRD equation recommended by the | [facility] | | National Kidney Disease Education Program. [...] | + + + + + | [facility] | [address] | [place] [address] | | | SERVICES, CORE | PARK [...] | + + + + + | [facility] | [address] | [place] [address] | | | NATALEE WORTHINGTON | VILMA [...] DEPT OF | [address] | [place], [place] | | | CARDIOLOGY | [address] | [address] | | + + + + + [...] DEPT OF | [address] | [place], [place] | | | CARDIOLOGY | [facility] | [address] | | + + + + + [...] | + + + + + | [facility] | [address] | [place] [address] | | | SERVICES, CORE | PARK [...] [facility] | [address] | [place] [address] | | | SERVICES, CORE | [address] [...] | | | LABORATORY | | | OMANI | | | SERVICES, | | | [...] the MDRD equation recommended by the | [facility] | | National Kidney Disease Education Program. [...] | + + + + + | [facility] | [address] [facility] | [place] [address] | | | NATALEE WORTHINGTON | [address] | | | + + + + + PROCEDURE NOTE (10/10/2017 10:00 PM PDT) + + + | Narrative | Performed At | + + + | Darius Link MD 10/12/2017 11:11 AM OPERATIVE REPORT | | | DATE OF OPERATION: 10/10/2017 ATTENDING SURGEON: 1. Dr. Hernandez | | | BISQUE FINISHER: 1. Darius Link MD INDICATIONS: Dysphagia | | | and need for penitentiary nutrition access PREOPERATIVE DIAGNOSIS: | | | 1.Dysphagia and need for intermediate manager nutrition access | | | POSTOPERATIVE [...] | | | [place] [address] Chief Resident | | | Neurosurgery | [...] | + + + + + | [facility] | [address] | [place] [address] | | | SERVICES, CORE | [address] [...] | | | LABORATORY | | | OMANI | | | SERVICES, | | | [...] | + + + + + | [facility] | [address] | [place] [address] | | | ELIN, NATALEE | [address] | | | + + + + + MAGNESIUM, PLASMA (10/10/2017 2:02 PM PDT) + +-------+ + + + | Component | Value | Ref Range | Performed | Pathologist | | | | | At | Signature | + +-------+ + + + | MAGNESIUM,P | 1.9 | 1.6 - 2.6 mg/dL | [facility] | | | [facility] | | | [...] | [facility] | [address] [facility] | [place] [address] | | | SERVICES, [facility] | [address] | | | + + + + + OPERATION RECORD (10/10/2017 12:40 PM PDT) + + | Procedure Note | + + | Magdiel Stock MD - 10/10/2017 12:40 PM PDT Date of Service: 10/10/2017 Attending | | Surgeon: Magdiel Stock MD Soundscriber Mechanic(s): Cecilia Jackson, | | . Preoperative Diagnoses: [...] This is a 67-year-old male. Please see [facility] for full details. He | [...] the note for this encounter.Sonal Nunez MDOHSU [id number] [facility] | | [place] [id number] Orina, MDFAH/MODLDD: | | 10/10/2017 11:52:15DT: 10/10/2017 12:40:41Job #: [id number] | | | | | |I was present for the critical portions of the procedure as described in the note for this encounter. | | | |Magdiel Stock MD | | | |Magdiel Stock MD | |[address] | |[address] [place] [address] | |[facility] | |[place] [address] | |[phone] | | | | | |Magdiel Stock MD | |FAH/MODL | | | | | | /[id number] | + + X-RAY ABDOMEN 1 VIEW [...] | + + + + + | [email or web address] - AIR[facility] - | [address] | [place] [address] | | | [place] | | | [...] | + + + + + | [facility] - | [address] | [place] [address] | | | [place] | | | | + + + [...] Gram Stain: No squamous epithelial cells | [place] | | Many polymorphonuclear cells No organisms seen | | + + + + + + + + | Performing | Address | City/State/Zipcode | Phone Number | | Organization | | | | + + + + + | [facility] - | [address] | [place] [address] | | | [place] | | | | + + + [...] detected | [facility] - | | | [place] | + + + + + + + + | Performing | Address | City/State/Zipcode | Phone Number | | Organization | | | | + + + + + | [facility] - | [address] | [place] [address] | | | [place] | | | | + + + [...] + | [facility] - | [address] | [place] [address] | | | [place] | | | [...] Gram Stain: No squamous epithelial cells | [place] | | Many polymorphonuclear cells No organisms seen | | + + + + + + + + | Performing | Address | City/State/Zipcode | Phone Number | | Organization | | | | + + + + + | [facility] - | [address] | [place] [address] | | | [facility] | | | | + + + [...] + | [facility] - | [address] | [place] [address] | | | [place] | | | [...] + | [facility] - | [address] | [place] [address] | | | [place] | | | | + + + + + CULTURE, TISSUE (10/10/2017 8:41 AM PDT) + + | Specimen | + + | Tissue - Head | | structure (body | | structure) | + + + + + | Narrative | Performed At | + + + | Culture Report: No growth No anaerobic organisms isolated | [facility] - | | Gram Stain: No squamous epithelial cells No polymorphonuclear | [facility] - | | cells No organisms seen | [place] | + + + + + + + + | Performing | Address | City/State/Zipcode | Phone Number | | Organization | | | | + + + + + | [email or web address] - [facility] - | [address] | [place] [address] | | | [place] | | | | + + + [...] + | [facility] - | [address] | [place] [address] | | | [place] | | | [...] Gram Stain: No squamous epithelial cells | [facility] | | Moderate polymorphonuclear cells No organisms seen | | + + + + + + + + | Performing | Address | City/State/Zipcode | Phone Number | | Organization | | | | + + + + + | [facility] - | [address] | [place] [address] | | | [facility] | | | | + + + [...] detected | [facility] - | | | [place] | + + + + + + + + | Performing | Address | City/State/Zipcode | Phone Number | | Organization | | | | + + + + + | [facility] - | [address] | [place] [address] | | | [place] | | | | + + + [...] + | [facility] - | [address] | [place] [address] | | | [place] | | | [...] + | [facility] - | [address] | [place] [address] | | | [place] | | | [...] + | [facility] - | [address] | [place] [address] | | | [place] | | | [...] + | [facility] - | [address] | [place] [address] | | | [place] | | | [...] + | [facility] - | [address] | [place] [address] | | | [place] | | | [...] + | [facility] - | [address] | [place] [address] | | | [place] | | | | + + + [...] [facility] | [address] | [place] [address] | | | SERVICES, CORE | [address] [...] | + + + + + | [facility] | [address] | [place] [address] | | | ELIN, NATALEE | [address] | | | + + + + + MAGNESIUM, PLASMA (10/10/2017 2:36 AM PDT) + +-------+ + + + | Component | Value | Ref Range | Performed | Pathologist | | | | | At | Signature | + +-------+ + + + | MAGNESIUM,P | 2.2 | 1.6 - 2.6 mg/dL | [facility] | | | [facility] | | | [...] [facility] | [address] | [place] [address] | | | SERVICES, CORE | [address] [...] | | | LABORATORY | | | [facility]I | | | SERVICES, | | | [...] (H) | 4 - 11 mmol/L | [facility] | | | GAP(ALB | | | [...] | + + + + + | [facility] | [address] [facility] | [place] [address] | | | NATALEE WORTHINGTON | V[address]MA [...] [facility] | [address] [facility] | [place], [place] | | | CARDIOLOGY | [address] | [address] | | + + + + + [...] + + + + | PRODUCT | [id number] | | [facility] | | | UNIT [...] + + + + | EXPIRATION | [id number] | | [facility] | | | DATE [...] + + + + | BLOOD | [id number] | | [facility] | | | PRODUCT [...] | + + + + + | [facility] | [address] | [place] [address] | | | SERVICES, | [address] [...] + + + + | PRODUCT | [id number] | | [facility] | | | UNIT [...] + + + + | EXPIRATION | [id number] | | [facility] | | | DATE [...] + + + + | BLOOD | [id number] | | [facility] | | | PRODUCT [...] | + + + + + | [facility] | [address] | [place] [address] | | | SERVICES, | [address] [...] [facility] | [address] | [place] [address] | | | SERVICES, | [address] [...] [facility] | [address] | [place] [address] | | | SERVICES, | [address] [...] | + + + + + | [facility] | [address] | [place] [address] | | | SERVICES, | [address] [...] | + + + + + | [facility] | [address] | [place] [address] | | | SERVICES, CORE | [address] [...] DEPT OF | [address] | [place], [place] | | | CARDIOLOGY | [address] | [address] | | + + + + + [...] Note | + + | Service Account, Dustcloud Res In Interface - 10/08/2017 10:47 AM [...] [facility] | [address] | [place], [place] | | | [facility] | [facility] | [address] | | | TESTS | | | [...] | + + + + + | [facility] | [address] | [place] [address] | | | SERVICES, CORE | [address] | | | + + + + + MAGNESIUM, PLASMA (10/08/2017 6:00 AM PDT) + +-------+ + + + | Component | Value | Ref Range | Performed | Pathologist | | | | | At | Signature | + +-------+ + + + | MAGNESIUM,P | 2.2 | 1.6 - 2.6 mg/dL | [facility] | | | [facility] | | | [...] [facility] | [address] | [place] [address] | | | SERVICES, NATALEE | [address] [...] | | | LABORATORY | | | OMANI | | | SERVICES, | | | [...] | + + + + + | [facility] | [address] | [place] [address] | | | SERVICES, CORE | VIL[address] [...] [facility] | [address] | [place], [place] | | | [facility] | [address] | [address] | | | TESTS | | | [...] (H) | 70 - 99 mg/dL | [facility] - | | | GLUCOSE, | | [...] [facility] | [address] | [place], [place] | | | [facility] | [address] | [address] | | | TESTS | | | [...] [facility] | [address] | [place], [place] | | | [facility] | [address] | [address] | | | TESTS | | | [...] [facility] | [address] | [place], [place] | | | [facility] | [address] | [address] | | | TESTS | | | [...] (H) | 70 - 99 mg/dL | [facility] - | | | GLUCOSE, | | [...] - [facility] | [address] | [place], [place] | | | [facility] | [address] | [address] | | | TESTS | | | [...] | + + + + + | [facility] | [address] | [place] [address] | | | NATALEE WORTHINGTON | [address] [...] | + + + + + | [facility] | [address] | [place] [address] | | | SERVICES, CORE | [address] [...] | | | LABORATORY | | | OMANI | | | SERVICES, | | | [...] | + + + + + | [facility] | [address] | [place] [address] | | | SERVICES, CORE | [address] [...] [facility] | [address] | [place], [place] | | | [facility] | [address] | [address] | | | TESTS | | | [...] [facility] | [address] | [place] | | | [facility] | [address] | [address] | | | TESTS | | | [...] DEPT OF | [address] | [place], [place] | | | CARDIOLOGY | [address] | [address] | | + + + + + CAPILLARY BLOOD GLUCOSE (NO CHG), POC (10/06/2017 12:03 PM PDT) + +-------+ + + + | Component | Value | Ref Range | Performed | Pathologist | | | | | At | Signature | + +-------+ + + + | BLOOD | 87 | 70 - 99 mg/dL | [facility] - | | | GLUCOSE, | | [...] [facility] | [address] | [place], [place] | | | [facility] | [address] | [address] | | | TESTS | | | [...] | + + + + + | [facility] | [address] | [place] [address] | | | NATALEE WORTHINGTON | [address] [...] | + + + + + | [facility] | [address] | [place] [address] | | | ELIN, NATALEE | [address] [...] | | | LABORATORY | | | O[facility]I | | | SERVICES, | | | [...] | + + + + + | [facility] | [address] | [place] [address] | | | SERVICES, CORE | [address] [...] (H) | 70 - 99 mg/dL | [facility] - | | | GLUCOSE, | | [...] [facility] | [address] | [place], [place] | | | GLROIA GE[facility] OF [facility] | [facility] | [address] | | | TESTS | | | [...] [facility] | [address] | [place], [place] | | | [facility] | [facility] | [address] | | | TESTS | | | [...] [facility] | [address] | [place], [place] | | | [facility] | [facility] | [address] | | | TESTS | | | [...] [facility] | [address] | [place], [place] | | | [facility] | [address] | [address] | | | TESTS | | | [...] DEPT OF | [address] | [place], [place] | | | CARDIOLOGY | [address] | [address] | | + + + + + [...] | + + + + + | [facility] | [address] [facility] | [place] [address] | | | SERVICES, CORE | [address] [...] | [facility] | [address] [facility] | [place] [address] | | | SERVICES, CORE | [address] [...] | | | LABORATORY | | | OMANI | | | SERVICES, | | | [...] the MDRD equation recommended by the | [facility] | | National Kidney Disease Education Program. [...] | + + + + + | [facility] | [address] | [place] [address] | | | ELIN, NATALEE | [address] [...] (H) | 70 - 99 mg/dL | [facility] - | | | GLUCOSE, | | [...] [facility] | [address] | [place], [place] | | | [facility] | [address] | [address] | | | TESTS | | | [...] [facility] | [address] | [place], [place] | | | [facility] | [address] | [address] | | | TESTS | | | [...] [facility] | [address] | [place], [place] | | | [facility] | [facility] | [address] | | | TESTS | | | [...] (H) | 70 - 99 mg/dL | [facility] - | | | GLUCOSE, | | [...] [facility] | [address] | [place], [place] | | | [facility] | [address] | [address] | | | TESTS | | | [...] [facility] | [address] | [place], [place] | | | [facility] | [address] | [address] | | | TESTS | | | [...] | + + + + + | [facility] | [address] | [place] [address] | | | SERVICES, CORE | [address] [...] [facility] | [address] | [place] [address] | | | SERVICES, NATALEE | VILMA [...] | | | LABORATORY | | | [facility]I | | | SERVICES, | | | [...] | + + + + + | [facility] | [address] | [place] [address] | | | SERVICES, NATALEE | VILMA [...] [facility] | [address] | [place], [place] | | | [facility] | [facility] | [address] | | | TESTS | | | [...] (H) | 70 - 99 mg/dL | [facility] - | | | GLUCOSE, | | [...] [facility] | [address] | [place], [place] | | | [facility] | [address] | [address] | | | TESTS | | | [...] | + + + + + | [facility] | [address] | [place] [address] | | | SERVICES, CORE | VILMA [...] by | | | | | | [employer],[address] | | | | | | [facility],[place] | | | | | | [address] | | | | | | [phone]. | | | | | | Gui [...] [facility] | [address] | [place], [place] | | | [facility] | | [address] | | + + + + + [...] | + + + + + | [facility] | [address] | [place] [address] | | | SERVICES, CORE | PARK [...] | + + + + + | [facility] | [address] | [place] [address] | | | SERVICES, CORE | [address] [...] modified from | [facility] | | original household appliances service technician's approved specifications. The performance | LABORATORY | | of the CONDOMINIUM MANAGER HIV Combo test, with or without confirmation, [...] | + + + + + | [facility] | [address] | [place] [address] | | | SERVICES, SPECIAL | [address] [...] (H) | 70 - 99 mg/dL | [facility] - | | | GLUCOSE, | | [...] [facility] | [address] | [place], [place] | | | [facility] | [address] | [address] | | | TESTS | | | [...] [facility] | [address] | [place], [place] | | | [facility] | [facility] | [address] | | | TESTS | | | [...] [facility] | [address] | [place] [address] | | | SERVICES, CORE | [address]ARK [...] [facility] | [address] | [place] [address] | | | SERVICES, CORE | [address] [...] | | | LABORATORY | | | OMANI | | | SERVICES, | | | [...] the MDRD equation recommended by the | [facility] | | National Kidney Disease Education Program. [...] | + + + + + | [facility] | [address] | [place] [address] | | | NATALEE WORTHINGTON | VILMA [...] [facility] | [address] | [place], [place] | | | [facility] | [address] | [address] | | | TESTS | | | [...] [facility] | [address] | [place], [place] | | | [facility] | [address] | [address] | | | TESTS | | | [...] DEPT OF | [address] | [place], [place] | | | CARDIOLOGY | [address] | [address] | | + + + + + PROCEDURE NOTE (10/02/2017 2:12 PM PDT) + + + | Narrative | Performed At | + + + | Winnie Hrenandez RN 10/02/2017 2:15 PM PICC tip malpositioned [...] Note | + + | Service Account, RadiMedlanes Res In Interface - 10/02/2017 2:07 PM [...] + + | [facility] | [address] | [place], [place] | | | [facility] | [address] | [address] | | | TESTS | | | [...] [facility] | [address] | [place], [place] | | | [facility] | [address] | [address] | | | TESTS | | | [...] | + + + + + | [facility] | [address] | [place] [address] | | | NATALEE WORTHINGTON | [address] [...] | + + + + + | [facility] | [address] [facility] | [place] [address] | | | NATALEE WORTHINGTON | [address] [...] | | | LABORATORY | | | O[facility]I | | | SERVICES, | | | [...] | + + + + + | [facility] | [address] | [place] [address] | | | SERVICES, CORE | [address] [...] (H) | 70 - 99 mg/dL | [facility] - | | | GLUCOSE, | | [...] [facility] | [address] | [place], [place] | | | GLORIA GE[facility] | [facility] | [address] | | | TESTS | | | [...] [facility] | [address] | [place], [place] | | | [facility] | [address] | [address] | | | TESTS | | | [...] + + | Performing | Address | City/State[facility] | Phone Number | | Organization | | | | + + + + + | [facility] | [address] | [place], [place] | | | [facility]IA GE[facility] | [address] | [address] | | | TESTS | | | [...] Note | + + | Service Account, Digital Envoy In Interface - 10/01/2017 11:34 AM PDT [...] [facility] | [address] | [place], [place] | | | [facility] | [address] | [address] | | | TESTS | | | [...] [facility] | [address] | [place] [address] | | | NATALEE WORTHINGTON | VILMA [...] | + + + + + | [facility] | [address] | [place] [address] | | | NATALEE WORTHINGTON | VILMA [...] | | | LABORATORY | | | OMANI | | | SERVICES, | | | [...] | + + + + + | [facility] | [address] | [place] [address] | | | SERVICES, CORE | VILMA [...] PIYUSH | [address] | [place], [place] | | | [facility] | [address] | [address] | | | TESTS | | | [...] Jorge PICK[facility] | [address] | [place], [place] | | | [facility] | [facility] | [address] | | | TESTS | | | [...] [facility] | [address] | [place], [place] | | | CARDIOLOGY | [address] | [address] | | + + + + + [...] | | Stable postprocedural changes from right ilma-cranioplasty and | | | subjacent extra-axial fluid [...] PICKETT | [address] | [place], [place] | | | [facility] | [address] | [address] | | | TESTS | | | [...] MARQUAM | [address] | [place], [place] | | | [facility] | [address] | [address] | | | TESTS | | | [...] [facility] | [address] | [place] [address] | | | ELIN, NATALEE | PARK [...] [facility] | [address] | [place] [address] | | | SERVICES, CORE | PARK [...] | | | LABORATORY | | | OMANI | | | SERVICES, | | | [...] the MDRD equation recommended by the | [facility] | | National Kidney Disease Education Program. [...] | + + + + + | [facility] | [address] [facility] | [place] [address] | | | NATALEE WORTHINGTON | VILMA [...] MARQUAM | [address] | [place], [place] | | | [facility] | [address] | [address] | | | TESTS | | | [...] + + + | [facility] | [address] | [place], [place] | | | [facility] | [address] | [address] | | | TESTS | | | [...] MARQUAM | [address] | [place], [place] | | | [facility] | [address] | [address] | | | TESTS | | | [...] [facility]PT [facility] | [address] | [place], [place] | | | CARDIOLOGY | [address] | [address] | | + + + + + [...] PICKETT | [address] | [place], [place] | | | [facility] | [facility] | [address] | | | TESTS | | | [...] | + + + + + | [facility] | [address] | [place] [address] | | | SERVICES, CORE | VILMA [...] | | | LABORATORY | | | OMANI | | | SERVICES, | | | [...] [facility] | [address] | [place] [address] | | | SERVICES, CORE | PARK [...] | + + + + + | [facility] | [address] | [place] [address] | | | NATALEE WORTHINGTON | VILMA [...] MARQUAM | [address] | [place], [place] | | | [facility] | [address] | [address] | | | TESTS | | | [...] MARQUAM | [address] | [place], [place] | | | [facility] | [address] | [address] | | | TESTS | | | [...] PICKETT | [address] | [place], [place] | | | [facility] | [address] | [address] | | | TESTS | | | [...] DEPT OF | [address] | [place], [place] | | | CARDIOLOGY | [address] | [address] | | + + + + + [...] PICKETT | [address] | [place], [place] | | | [facility] CARE | [address] | [address] | | | TESTS | | | [...] [facility] | [address] | [place] [address] | | | NATALEE WORTHINGTON | VILMA [...] | + + + + + | [facility] | [address] | [place] [address] | | | NATALEE WORTHINGTON | VILMA [...] | | | LABORATORY | | | OMANI | | | SERVICES, | | | [...] | + + + + + | [facility] | [address] | [place] [address] | | | SERVICES, CORE | VILMA [...] PICKETT | [address] | [place], [place] | | | GLORIA GENAO OF [facility] | [facility] | [address] | | | TESTS | | | [...] | + + + + + | [facility] | [address] [facility] [address] | [place], [place] | | | GLORIA GENAO OF [facility] | [address] | [address] | | | TESTS | | | [...] with dry swallows. Please see [facility] for full details | | [...] [facility] | [address] | [place], [place] | | | GLORIA GENAO OF CARE | [address] | [address] | | | TESTS | | | [...] - PIYUSH | [address] | [place], [place] | | | [facility] OF [facility] | [address] | [address] | | | TESTS | | | [...] | + + + + + | [facility] | [address] | [place] [address] | | | SERVICES, CORE | VILMA [...] | + + + + + | [facility] | [address] | [place] [address] | | | SERVICES, CORE | PARK [...] | | | LABORATORY | | | OMANI | | | SERVICES, | | | [...] the MDRD equation recommended by the | [facility] | | National Kidney Disease Education Program. [...] | + + + + + | [facility] | [address] | [place] [address] | | | SERVICES, CORE | VILMA [...] (H) | 70 - 99 mg/dL | [facility] - | | | GLUCOSE, | | [...] P[facility] | [address] | [place], [place] | | | GLORIA GENAO OF [facility] | [address] | [address] | | | TESTS | | | [...] [facility] | [address] | [place], [place] | | | GLORIA GENAO OF CARE | [address] | [address] | | | TESTS | | | [...] DEPT OF | [address] | [place], [place] | | | CARDIOLOGY | [address] | [address] | | + + + + + [...] [facility] | [address] | [place] | | | [facility] | [address] | [address] | | | TESTS | | | [...] [facility] | [address] | [place], [place] | | | [facility] | [address] | [address] | | | TESTS | | | [...] - [facility] | [address] | [place] | | | [facility]ARE | [address] | [address] | | | TESTS | | | [...] | + + + + + | [facility] | [address] [facility] | [place] [address] | | | NATALEE WORTHINGTON | VILMA [...] | + + + + + | [facility] | [address] | [place] [address] | | | SERVICES, CORE | PARK [...] | | | LABORATORY | | | OMANI | | | SERVICES, | | | [...] | + + + + + | [facility] | [address] | [place] [address] | | | SERVICES, CORE | VILMA [...] (H) | 70 - 99 mg/dL | [facility] - | | | GLUCOSE, | | [...] PICKETT | [address] | [place] | | | GLORIA GENAO OF [facility] | [facility] | [address] | | | TESTS | | | [...] now presented. | | | |Final signature: aDniel Armijo MD 09/25/2017 12:31 PM | |Preliminary: [...] | + + + + + | [facility] | [address] | [place] [address] | | | SERVICES, NATALEE | VILMA [...] | + + + + + | [facility] | [address] | [place] [address] | | | SERVICES, CORE | VILMA [...] | | | LABORATORY | | | OMANI | | | SERVICES, | | | [...] | + + + + + | [facility] | [address] | [place] [address] | | | SERVICES, NATALEE | [address] | | | + + + + + 12 LEAD ECG (09/24/2017 9:28 PM PDT) + + + + + + | Component | Value | Ref Range | Performed | Pathologist | | | | | At | Signature | + + + + + + | VENTRICULAR | 74 | bpm | [facility] | | | RATE | | [...] DEPT OF | [address] | [place], [place] | | | CARDIOLOGY | [address] | [address] | | + + + + + [...] Note | + + | Service Account, Dustcloud Res In Interface - 09/24/2017 4:09 PM [...] | + + + + + | [facility] | [address] [facility] | [place] [address] | | | SERVICES, CORE | PARK [...] | | | LABORATORY | | | OMANI | | | SERVICES, | | | [...] | [facility] | [address] [facility] | [place] [address] | | | SERVICES, CORE | PARK [...] | + + + + + | [facility] | [address] | [place] [address] | | | NATALEE WORTHINGTON | VILMA [...] | + + + + + | [facility] | [address] | [place] [address] | | | SERVICES, CORE | [address] | | | + + + + + MAGNESIUM, PLASMA (09/23/2017 4:04 AM PDT) + +-------+ + + + | Component | Value | Ref Range | Performed | Pathologist | | | | | At | Signature | + +-------+ + + + | MAGNESIUM,P | 2.1 | 1.6 - 2.6 mg/dL | [facility] | | | L[facility]MA | | | [...] [facility] | [address] | [place] [address] | | | SERVICES, NATALEE | VILMA [...] | | | LABORATORY | | | OMANI | | | SERVICES, | | | [...] | + + + + + | [facility] | [address] [facility] | [place] [address] | | | SERVICES, NATALEE | VILMA [...] [facility] | [address] | [place], [place] | | | GLORIA GENAO OF CARE | [facility] | [address] | | | TESTS | | | [...] (H) | 70 - 99 mg/dL | [facility] - | | | GLUCOSE, | | [...] PICKETT | [address] | [place], [place] | | | [facility] | [address] | [address] | | | TESTS | | | [...] | + + + + + | [facility] | [address] | [place] [address] | | | SERVICES, CORE | PARK [...] DEPT OF | [address] | [place], [place] | | | CARDIOLOGY | [address] | [address] | | + + + + + [...] [facility] | [address] | [place] [address] | | | ELIN, NATALEE | PARK [...] [facility] | [address] | [place] [address] | | | SERVICES, CORE | PARK [...] | | | LABORATORY | | | OMANI | | | SERVICES, | | | [...] the MDRD equation recommended by the | [facility] | | National Kidney Disease Education Program. [...] | + + + + + | [facility] | [address] [facility] | [place] [address] | | | NATALEE WORTHINGTON | VILMA [...] [facility] | [address] | [place], [place] | | | [facility] [facility] | [address] | [address] | | | TESTS | | | [...] [facility] | [address] | [place] [address] | | | NATALEE WORTHINGTON | VILMA [...] | + + + + + | [facility] | [address] | [place] [address] | | | NATALEE WORTHINGTON | [address]ARK [...] | | | LABORATORY | | | OMANI | | | SERVICES, | | | [...] | + + + + + | [facility] | [address] | [place] [address] | | | SERVICES, CORE | VILMA [...] Note | + + | Service Account, Dustcloud Res In Interface - 09/20/2017 7:50 PM [...] MD 09/20/2017 7:48 PM | | Preliminary: Mgea Yeager MD | | | |FINDINGS/IMPRESSION: | [...] Note | + + | Service Account, Digital Envoy In Interface - 09/20/2017 6:26 PM PDT [...] Note | + + | Service Account, Digital Envoy In Interface - 09/20/2017 5:17 PM PDT [...] OF | [address] | [place], [place] | | | CARDIOLOGY | [address] | [address] | | + + + + + [...] | + + + + + | [facility] | [address] | [place] [address] | | | SERVICES, CORE | PARK [...] [facility] | [address] | [place] [address] | | | SERVICES, CORE | PARK [...] | | | LABORATORY | | | OMANI | | | SERVICES, | | | [...] | [facility] | [address] [facility] | [place] [address] | | | SERVICES, CORE | PARK [...] | + + + + + | [facility] | [address] | [place] [address] | | | SERVICES, CORE | VILMA [...] [facility] | [address] | [place] [address] | | | SERVICES, CORE | PARK [...] | | | LABORATORY | | | OMANI | | | SERVICES, | | | [...] [facility] | [address] | [place] [address] | | | SERVICES, CORE | PARK [...] | + + + + + | [facility] | [address] | [place] [address] | | | SERVICES, CORE | VILMA [...] [facility] | [address] | [place] [address] | | | SERVICES, CORE | PARK [...] (H) | 70 - 99 mg/dL | [facility] | | | PLASMA | | | [...] | | | LABORATORY | | | OMANI | | | SERVICES, | | | [...] the MDRD equation recommended by the | [facility] | | National Kidney Disease Education Program. [...] | + + + + + | [facility] | [address] [facility] | [place] [address] | | | SERVICES, [facility] | [address] | | | + [...] Note | + + | Service Account, Dustcloud Res In Interface - 09/17/2017 11:53 AM [...] | + + + + + | [facility] | [address] | [place] [address] | | | NATALEE WORTHINGTON | VILMA [...] | + + + + + | [facility] | [address] [facility] | [place] [address] | | | NATALEE WORTHINGTON | [address] [...] | | | LABORATORY | | | OMANI | | | SERVICES, | | | [...] | + + + + + | [facility] | [address] | [place] [address] | | | SERVICES, CORE | PARK [...] Note | + + | Service Account, HeribertoGeoCities In Interface - 09/16/2017 1:34 PM PDT [...] [facility] | [address] | [place] [address] | | | NATALEE WORTHINGTON | VILMA [...] | + + + + + | [facility] | [address] | [place] [address] | | | SERVICES, CORE | PARK [...] | | | LABORATORY | | | OMANI | | | SERVICES, | | | [...] | + + + + + | [facility] | [address] [facility] | [place] [address] | | | SERVICES, CORE | VILMA [...] Note | + + | Service Account, Dustcloud Res In Interface - 09/15/2017 6:45 PM [...] Note Indications:TPN Procedure | | | location: Unit:[facility] Room: [facility] Providers: Attending name: | | | Attending [...] | pause verifies correct patient, procedure, equipment, account support analyst | | | and site/side [...] | area Basilic vein. Catheter lot number: [id number] with a length of 55 | | [...] | + + + + + | [facility] | [address] | [place] [address] | | | SERVICES, NATALEE | PARK [...] | + + + + + | [facility] | [address] | [place] [address] | | | SERVICES, CORE | [address]IL[address] [...] | | | LABORATORY | | | OMANI | | | SERVICES, | | | [...] the MDRD equation recommended by the | [facility] | | National Kidney Disease Education Program. [...] | + + + + + | [facility] | [address] [facility] | [place] [address] | | | SERVICES, CORE | [address] | | | + + + + + X-RAY SPINE CERVICAL 2 VIEWS (09/14/2017 4:51 PM PDT) + + | Specimen | + + | | + + + + + | Narrative | Performed At | + + + | EXAM: SPINE CERVICAL 2 VIEWS HISTORY: Cervical spine fractures | [facility] | | COMPARISON: 08/31/17 FINDINGS: The upper [...] | + + + + + | [facility] | [address] | [place] [address] | | | NATALEE WORTHINGTON | VILMA [...] | + + + + + | [facility] | [address] | [place] [address] | | | NATALEE WORTHINGTON | [address]ARK [...] | | | LABORATORY | | | OMANI | | | SERVICES, | | | [...] | + + + + + | [facility] | [address] | [place] [address] | | | SERVICES, CORE | PARK [...] [facility] | [address] | [place] [address] | | | NATALEE WORTHINGTON | VILMA [...] | + + + + + | [facility] | [address] | [place] [address] | | | NATALEE WORTHINGTON | [address]ARK [...] | | | LABORATORY | | | OMANI | | | SERVICES, | | | [...] | + + + + + | [facility] | [address] | [place] [address] | | | SERVICES, CORE | VILMA [...] [facility] | [address] | [place] [address] | | | SERVICES, NATALEE | PARK [...] [facility] | [address] | [place] [address] | | | SERVICES, CORE | VILMA [...] | | | LABORATORY | | | OMANI | | | SERVICES, | | | [...] the MDRD equation recommended by the | [facility] | | National Kidney Disease Education Program. [...] | + + + + + | [facility] | [address] | [place] [address] | | | NATALEE WORTHINGTON | VILMA [...] [facility] | [address] | [place] [address] | | | SERVICES, CORE | PARK [...] [facility] | [address] | [place] [address] | | | SERVICES, NATALEE | VILMA [...] | | | LABORATORY | | | OMANI | | | SERVICES, | | | [...] | + + + + + | [facility] | [address] | [place] [address] | | | SERVICES, CORE | VILMA [...] | + + + + + | [facility] | [address] | [place] [address] | | | SERVICES, CORE | VILMA [...] 09/10/2017 2:08 PM | |Created by: Edelmira Parsnos MD | + + + +---------+ + [...] Note | + + | Service Account, Dustcloud Res In Interface - 09/10/2017 2:31 PM [...] Note | + + | Service Account, RadiMedlanes Res In Interface - 09/10/2017 9:25 AM [...] [facility] | [address] | [place] [address] | | | SERVICES, CORE | PARK [...] [facility] | [address] | [place] [address] | | | SERVICES, CORE | PARK [...] | + + + + + | [facility] | [address] | [place] [address] | | | SERVICES, CORE | [address]ARK [...] [facility] | [address] | [place] [address] | | | SERVICES, CORE | PARK [...] | | | LABORATORY | | | OMANI | | | SERVICES, | | | [...] the MDRD equation recommended by the | [facility] | | National Kidney Disease Education Program. [...] | + + + + + | [facility] | [address] | [place] [address] | | | NATALEE WORTHINGTON | VILMA [...] DEPT OF | [address] | [place], [place] | | | CARDIOLOGY | [address] | [address] | | + + + + + [...] Note | + + | Service Account, Dustcloud Res In Interface - 09/10/2017 11:11 AM [...] [facility] | [address] | [place], [place] | | | HILL, POINT OF CARE | [address] | [address] | | | TESTS | | | [...] [facility] | [address] | [place] [address] | | | SERVICES, NATALEE | VILMA [...] [facility] | [address] | [place] [address] | | | SERVICES, CORE | [address]ARK [...] | | | LABORATORY | | | OMANI | | | SERVICES, | | | [...] the MDRD equation recommended by the | [facility] | | National Kidney Disease Education Program. [...] | + + + + + | [facility] | [address] [facility] | [place] [address] | | | NATALEE WORTHINGTON | VILMA [...] | [facility] | [address] [facility] | [place] [address] | | | SERVICES, CORE | [address]ARK [...] | | | LABORATORY | | | OMANI | | | SERVICES, | | | [...] [facility] | [address] | [place] [address] | | | SERVICES, CORE | VILMA [...] | + + + + + | [facility] | [address] [facility] | [place] [address] | | | SERVICES, CORE | VILMA [...] [facility] | [address] | [place] [address] | | | SERVICES, CORE | PARK [...] DEPT OF | [address] | [place], [place] | | | CARDIOLOGY | [address] | [address] | | + + + + + [...] Note | + + | Service Account, Dustcloud Res In Interface - 09/07/2017 10:46 AM [...] [facility] | [address] | [place] [address] | | | NATALEE WORTHINGTON | VILMA [...] | | | LABORATORY | | | OMANI | | | SERVICES, | | | [...] | + + + + + | [facility] | [address] | [place] [address] | | | SERVICES, CORE | VILMA [...] | + + + + + | [facility] | [address] | [place] [address] | | | SERVICES, CORE | VILMA [...] | + + + + + | [facility] OF | [address] | [place], [place] | | | CARDIOLOGY | [address] | [address] | | + + + + + [...] | | | attempt. Midline lot number [id number]; there was positive blood | | | [...] | | | LABORATORY | | | OMANI | | | SERVICES, | | | [...] LABORATORY | [address] | [place] [address] | | | SERVICES, CORE | PARK [...] | + + + + + | [facility] | [address] | [place] [address] | | | [facility] | [address] | | | + [...] Note | + + | Service Account, Dustcloud Res In Interface - 09/05/2017 10:16 AM [...] | | + +---------+ + + | [facility] | | | | | VOICE [...] | + + + + + | [facility] | [address] | [place] [address] | | | SERVICES, CORE | VILMA [...] | + + + + + | [facility] | [address] | [place] [address] | | | SERVICES, CORE | PARK [...] | | | LABORATORY | | | OMANI | | | SERVICES, | | | [...] [facility] | [address] | [place] [address] | | | SERVICES, CORE | PARK [...] | | | LABORATORY | | | OMANI | | | SERVICES, | | | [...] the MDRD equation recommended by the | [facility] | | National Kidney Disease Education Program. [...] | + + + + + | [facility] | [address] [facility] [facility] [address] | [place] [address] | | | [facility] | [address] | | | + [...] tomorrow morning. CB Henson Pager / [place]: [phone] | | + + + CULTURE, SPUTUM [...] + | [facility] - | [address] | [place] [address] | | | [place] | | | | + + + [...] | + + + + + | [facility] | [address] | [place] [address] | | | SERVICES, CORE | VILMA [...] | [facility] | | | GRAVITY | Hankins performed by | | LABORATORY | | [...] | + + + + + | [facility] | [address] | [place] [address] | | | SERVICES, NATALEE | PARK [...] | + + + + + | [facility] | [address] | [place] [address] | | | SERVICES, CORE | VILMA [...] [facility] | [address] | [place] [address] | | | SERVICES, CORE | VILMA [...] | + + + + + | [facility] | [address] | [place], [place] | | | CARDIOLOGY | [address] | [address] | | + + + + + [...] | + + + + + | [facility] | [address] | [place] [address] | | | SERVICES, CORE | VILMA [...] [facility] | [address] | [place] [address] | | | SERVICES, CORE | [address] [...] | | | LABORATORY | | | OMANI | | | SERVICES, | | | [...] the MDRD equation recommended by the | [facility] | | National Kidney Disease Education Program. [...] | + + + + + | [facility] | [address] | [place] [address] | | | SERVICES, CORE | PARK [...] [facility] | [address] | [place] [address] | | | ELIN, NATALEE | VILMA [...] - [facility] | [address] | [place], [place] | | | [facility] PO[facility] OF CARE | [address] | [address] | | | TESTS | | | [...] [facility] | [address] | [place], [place] | | | GLORIA GENAO OF [facility] | [address] | [address] | | | TESTS | | | [...] [facility] | [address] | [place], [place] | | | [facility] PO[facility] CARE | [address] | [address] | | | TESTS | | | [...] [facility] | [address] | [place], [place] | | | [facility] | [address] | [address] | | | TESTS | | | [...] | | + +---------+ + + | [facility] | | | | | VASC [...] detected | [facility] | | | [facility] | + + + + + + + + | Performing | Address | City/State/Zipcode | Phone Number | | Organization | | | | + + + + + | [facility] | [address] | [place] [address] | | | [place] | | | | + + + [...] | + + + + + | [facility] | [address] | [place] [address] | | | SERVICES, CORE | [...] Note | + + | Service Account, Digital Envoy In Interface - 09/03/2017 9:54 AM PDT [...] + + + + + | [facility] - | [address] | [place] [address] | | | [place] | | | | + + + [...] [facility] | [address] | [place] [address] | | | SERVICES, CORE | PARK [...] | + + + + + | [facility] | [address] | [place] [address] | | | SERVICES, CORE | [address] [...] | | | LABORATORY | | | OMANI | | | SERVICES, | | | [...] | + + + + + | [facility] | [address] | [place] [address] | | | SERVICES, CORE | PARK [...] | + + + + + | [facility] | [address] | [place] [address] | | | SERVICES, CORE | [address] | | | + + + + + OPERATION RECORD (09/02/2017 6:53 PM PDT) + + | Procedure Note | + + | Fidelina Shields MD - 09/02/2017 6:53 PM PDT Date of Service: 09/02/2017 | | Attending Surgeon: Fidelina Shields MD Soundscriber Mechanic(s): | | Ajay Butts MD, resident. Preoperative [...] 09/02/2017 18:15:29DT: 09/02/2017 18:53:52Job #: | | [id number] to federal Medicare and Medicaid regulations I was present for | | the entire procedure.Fidelina Shields MDAssistant ProfessorDepartment of SurgeryOffice: | | [phone]: [id number] has been electronically signed by Fidelina Shields MD, | | 09/03/2017 at 9:11 AM. | | | | | |Fidelina Shields MD | |[facility] [place] | |Department of Surgery | |Office: [phone] | |Pager: [phone] | | | |This has been electronically [...] | + + + + + | [facility] | [address] | [place] [address] | | | SERVICES, CORE | VILMA [...] | + + + + + | [facility] | [address] | [place] [address] | | | SERVICES, CORE | PARK [...] detected | [place] - | | | [place] | + + + + + + + + | Performing | Address | City/State/Zipcode | Phone Number | | Organization | | | | + + + + + | [facility] | [address] | [place] [address] | | | [place] | | | [...] [facility] | [address] | [place] [address] | | | SERVICES, CORE | PARK [...] | | | LABORATORY | | | [place] | | | SERVICES, | | | [...] | + + + + + | [facility] | [address] [facility] [address] | [place] [address] | | | NATALEE [place] | VILMA [...] Note | + + | Service Account, Digital Envoy In Interface - 09/02/2017 4:25 PM PDT [...] | | | contact: INGRID Butts, Surgery [phone] Pursuant | | | to federal Medicare and Medicaid regulations I was present for the | | | entire procedure. Fidelina Shields MD [facility] | | | Department of Surgery Office: [phone] Pager: [phone] This has | | | been electronically [...] [facility] | [address] | [place] [address] | | | SERVICES, CORE | PARK [...] | + + + + + | [facility] | [address] | [place] [address] | | | SERVICES, [facility] [place] | [place] | | | + + + + + OPERATION RECORD (09/02/2017 6:51 AM PDT) + ---+ | Procedure Note | + ---+ | Fidelina Shields MD - 09/02/2017 6:51 AM PDT Date of Service: 09/01/2017 | | Attending Surgeon: Fidelina Shields MD Soundscriber Mechanic(s): Haim Peralta MD. | | Ajay Butts [...] 09/02/2017 06:17:53DT: 09/02/2017 | | 06:51:37Job #: [id number] to federal Medicare and Medicaid regulations I | | was present for the entire procedure.Fidelina Tenorio ProfessorDepartment of | | SurgeryOffice: [phone]: [id number] has been electronically signed by Fidelina Radford | MD Cornelius, 09/02/2017 at 10:40 AM. | | | | | |Pursuant to federal Medicare and Medicaid regulations I was present for the entire procedur e. | | | | | | | |Fidelina Shields MD | |[facility] | |Department of Surgery | |Office: [phone] | |Pager: [phone] | | | |This has been electronically [...] | + + + + + | [facility] | [address] | [place] [address] | | | SERVICES, CORE | PARK [...] [facility] | [address] | [place] [address] | | | SERVICES, CORE | PARK [...] + + + + | PRODUCT | [id number] | | [facility] | | | UNIT [...] + + + + | EXPIRATION | [id number] | | [facility] | | | DATE [...] + + + + | BLOOD | [id number] | | [facility] | | | PRODUCT [...] [facility] | [address] | [place] [address] | | | SERVICES, | [address] [...] Note | + + | Service Account, RadiMedlanes Res In Interface - 09/02/2017 11:22 AM [...] | + + + + + | [facility] | [address] [facility] | [place] [address] | | | SERVICES, CORE | VILMA [...] | | | LABORATORY | | | [facility] | | | SERVICES, | | | [...] | + + + + + | [facility] | [address] | [place] [address] | | | SERVICES, CORE | PARK [...] | + + + + + | [facility] | [address] | [place] [address] | | | SERVICES, CORE | VILMA [...] (http://www.cdc.gov/mmwr | | | | | | [email or web address] | | | | | | [email or web address]), [...] [facility] - | | | | by [employer], | | AIRPORT - | | | | | | [place] | | | | [address] | | | | | | [facility] | | | | | | [address] | | | | | | | | | | | | www.[employer], Gui | | | | | | [...] + | [facility] - AIRPORT - | [address] | [place] [address] | | | [place] | | | [...] | + + + + + | [facility] | [address] | [place] [address] | | | SERVICES, CORE | VILMA [...] SELE[facility] | [address] | [place] [address] | | | SERVICES, CORE | PARK [...] | + + + + + | [facility] | [address] | [place] [address] | | | SERVICES, CORE | PARK [...] | + + + + + | [facility] | [address] | [place] [address] | | | SERVICES, CORE | VILMA [...] + + + + | PRODUCT | [id number] | | [facility] | | | UNIT [...] + + + + | EXPIRATION | [id number] | | [facility] | | | DATE [...] + + + + | BLOOD | [id number] | | [facility] | | | PRODUCT [...] | + + + + + | [facility] | [address] | [place] [address] | | | SERVICES, | [address] [...] [facility] | [address] | [place] [address] | | | SERVICES, CORE | PARK [...] | + + + + + | [facility] | [address] | [place] [address] | | | SERVICES, CORE | PARK [...] | + + + + + | [facility] | [address] | [place] [address] | | | SERVICES, CORE | PARK [...] | | | LABORATORY | | | [facility] | | | SERVICES, | | | [...] the MDRD equation recommended by the | [facility] | | National Kidney Disease Education Program. [...] | + + + + + | [facility] | [address] | [place] [address] | | | ELIN, NATALEE | VILMA [...] | + + + + + | [facility] | [address] | [place] [address] | | | NATALEE WORTHINGTON | VILMA [...] is a | 1.14 - 1.32 | [facility] | | | WHOLE BLD | corrected result. | mmol/L | LABORATORY | | | | Previous result was 1.19 | | [facility], | | | | mmol/L on [...] [facility] | [address] | [place] [address] | | | NATALEE WORTHINGTON | VILMA [...] micropuncture access set was exchanged for a pic5 wire. Under | | | fluoroscopic guidance, a 5 Fr flush catheter was used to evaluate the | | | distal abdominal aorta and pelvic vasculature. A wire and catheter | | | were then used to select the left common and internal iliac arteries | | | from the right AIRPLANE COVER MAKER approach. DSA was performed from the [...] | | iliac arteries from the right AIRPLANE COVER MAKER approach. DSA was performed from the [...] and internal iliac arteries from the right AIRPLANE COVER MAKER approach. DSA was performed from the [...] [facility] | | | | | | [place], POINT | | | | | | [...] [facility] | [address] | [place], [place] | | | GLORIA GENAO OF CARE | [address] | [address] | | | TESTS | | | | + + + + + EXPLORATORY LAPAROTOMY (09/01/2017 12:31 PM PDT) + + + | Narrative | Performed At | + + + | Fidelina Shields MD 09/01/2017 12:42 PM BRIEF OPERATIVE NOTE: | | | Date: 09/01/2017 Author: Fidelina Shields MD | | | Attending Physician: Fidelina Shields MD Soundscriber Mechanic(s): Haim Peralta | | | , Vicente Butts MD, Glo Caputodignity health st. jose[facility] hospital and medical centerChadwick MS3 Prior to the | [...] case. | | | Fidelina Shields MD [place] Division of Trauma, | | | Critical Care and Acute Care Surgery Office: [phone] Pager: | | | [phone] | | + + + ABG-FULL ABL, [...] [facility] | [address] | [place], [place] | | | [place], POINT OF CARE | [address] | [address] | | | TESTS | | | [...] [facility] | [address] | [place] [address] | | | ELIN, NATALEE | VILMA [...] - [facility] | [address] | [place], [place] | | | [place] [facility] | [address] | [address] | | | TESTS | | | [...] + + + + | PRODUCT | [id number] | | [facility] | | | UNIT [...] + + + + | EXPIRATION | [id number] | | [facility] | | | DATE [...] + + + + | BLOOD | [id number] | | [facility] | | | PRODUCT [...] [facility] | [address] | [place] [address] | | | SERVICES, | [address] [...] + + + + | PRODUCT | [id number] | | [facility] | | | UNIT [...] + + + + | EXPIRATION | [id number] | | [facility] | | | DATE [...] + + + + | BLOOD | [id number] | | [facility] | | | PRODUCT [...] | + + + + + | [facility] | [address] | [place] [address] | | | SERVICES, | [address] [...] + + + + | PRODUCT | [id number] | | [facility] | | | UNIT [...] + + + + | EXPIRATION | [id number] | | [facility] | | | DATE [...] + + + + | BLOOD | [id number] | | [facility] | | | PRODUCT [...] | + + + + + | [facility] | [address] | [place] [address] | | | SERVICES, | [address] [...] + + + + | PRODUCT | [id number] | | [facility] | | | UNIT [...] + + + + | EXPIRATION | [id number] | | [facility] | | | DATE [...] + + + + | BLOOD | [id number] | | [facility] | | | PRODUCT [...] | + + + + + | [facility] | [address] | [place] [address] | | | SERVICES, | [address] [...] + + + + | PRODUCT | [id number] | | [facility] | | | UNIT [...] + + + + | EXPIRATION | [id number] | | [facility] | | | DATE [...] + + + + | BLOOD | [id number] | | [facility] | | | PRODUCT [...] | + + + + + | [facility] | [address] | [place] [address] | | | SERVICES, | [address] [...] + + + + | PRODUCT | [id number] | | [facility] | | | UNIT [...] + + + + | EXPIRATION | [id number] | | [facility] | | | DATE [...] + + + + | BLOOD | [id number] | | [facility] | | | PRODUCT [...] [facility] | [address] | [place] [address] | | | SERVICES, | [address] [...] + + + + | PRODUCT | [id number] | | [facility] | | | UNIT [...] + + + + | EXPIRATION | [id number] | | [facility] | | | DATE [...] + + + + | BLOOD | [id number] | | [facility] | | | PRODUCT [...] [facility] | [address] | [place] [address] | | | SERVICES, | [address] [...] + + + + | PRODUCT | [id number] | | [facility] | | | UNIT [...] + + + + | EXPIRATION | [id number] | | [facility] | | | DATE [...] + + + + | BLOOD | [id number] | | [facility] | | | PRODUCT [...] [facility] | [address] | [place] [address] | | | SERVICES, | [address] [...] + + + + | PRODUCT | [id number] | | [facility] | | | UNIT [...] + + + + | EXPIRATION | [id number] | | [facility] | | | DATE [...] + + + + | BLOOD | [id number] | | [facility] | | | PRODUCT [...] [facility] | [address] | [place] [address] | | | SERVICES, | [address] [...] + + + + | PRODUCT | [id number] | | [facility] | | | UNIT [...] + + + + | EXPIRATION | [id number] | | [facility] | | | DATE [...] + + + + | BLOOD | [id number] | | [facility] | | | PRODUCT [...] [facility] | [address] | [place] [address] | | | SERVICES, | [address] [...] + + + + | PRODUCT | [id number] | | [facility] | | | UNIT [...] + + + + | EXPIRATION | [id number] | | [facility] | | | DATE [...] + + + + | BLOOD | [id number] | | [facility] | | | PRODUCT [...] | + + + + + | [facility] | [address] | [place] [address] | | | SERVICES, | [address] [...] + + + + | PRODUCT | [id number] | | [facility] | | | UNIT [...] + + + + | EXPIRATION | [id number] | | [facility] | | | DATE [...] + + + + | BLOOD | [id number] | | [facility] | | | PRODUCT [...] | + + + + + | [facility] | [address] | [place] [address] | | | SERVICES, | [address] [...] + + + + | PRODUCT | [id number] | | [facility] | | | UNIT [...] + + + + | EXPIRATION | [id number] | | [facility] | | | DATE [...] + + + + | BLOOD | [id number] | | [facility] | | | PRODUCT [...] | + + + + + | [facility] | [address] | [place] [address] | | | SERVICES, | [address] [...] + + + + | PRODUCT | [id number] | | [facility] | | | UNIT [...] + + + + | EXPIRATION | [id number] | | [facility] | | | DATE [...] + + + + | BLOOD | [id number] | | [facility] | | | PRODUCT [...] | [facility] | [address] [facility] [facility] | [place] [address] | | | SERVICES, | [address] [...] + + + + | PRODUCT | [id number] | | [facility] | | | UNIT [...] + + + + | EXPIRATION | [id number] | | [facility] | | | DATE [...] + + + + | BLOOD | [id number] | | [facility] | | | PRODUCT [...] [facility] | [address] | [place] [address] | | | SERVICES, | [address] [...] + + + + | PRODUCT | [id number] | | [facility] | | | UNIT [...] + + + + | EXPIRATION | [id number] | | [facility] | | | DATE [...] + + + + | BLOOD | [id number] | | [facility] | | | PRODUCT [...] [facility] | [address] | [place] [address] | | | SERVICES, | [address] [...] + + + + | PRODUCT | [id number] | | [facility] | | | UNIT [...] + + + + | EXPIRATION | [id number] | | [facility] | | | DATE [...] + + + + | BLOOD | [id number] | | [facility] | | | PRODUCT [...] [facility] | [address] | [place] [address] | | | SERVICES, | [address] [...] + + + + | PRODUCT | [id number] | | [facility] | | | UNIT [...] + + + + | EXPIRATION | [id number] | | [facility] | | | DATE [...] + + + + | BLOOD | [id number] | | [facility] | | | PRODUCT [...] [facility] | [address] | [place] [address] | | | SERVICES, | [address] [...] + + + + | PRODUCT | [id number] | | [facility] | | | UNIT [...] + + + + | EXPIRATION | [id number] | | [facility] | | | DATE [...] + + + + | BLOOD | [id number] | | [facility] | | | PRODUCT [...] [facility] | [address] | [place] [address] | | | SERVICES, | [address] [...] + + + + | PRODUCT | [id number] | | [facility] | | | UNIT [...] + + + + | EXPIRATION | [id number] | | [facility] | | | DATE [...] + + + + | BLOOD | [id number] | | [facility] | | | PRODUCT [...] [facility]ORAT[facility] | [address] | [place] [address] | | | SERVICES, | [address] [...] + + + + | PRODUCT | [id number] | | [facility] | | | UNIT [...] + + + + | EXPIRATION | [id number] | | [facility] | | | DATE [...] + + + + | BLOOD | [id number] | | [facility] | | | PRODUCT [...] [facility] | [address] | [place] [address] | | | SERVICES, | [address] [...] + + + + | PRODUCT | [id number] | | [facility] | | | UNIT [...] + + + + | EXPIRATION | [id number] | | [facility] | | | DATE [...] + + + + | BLOOD | [id number] | | [facility] | | | PRODUCT [...] | + + + + + | [facility] | [address] | [place] [address] | | | SERVICES, | [address] [...] + + + + | PRODUCT | [id number] | | [facility] | | | UNIT [...] + + + + | EXPIRATION | [id number] | | [facility] | | | DATE [...] + + + + | BLOOD | [id number] | | [facility] | | | PRODUCT [...] | + + + + + | [facility] | [address] | [place] [address] | | | SERVICES, | [address] [...] + + + + | PRODUCT | [id number] | | [facility] | | | UNIT [...] + + + + | EXPIRATION | [id number] | | [facility] | | | DATE [...] + + + + | BLOOD | [id number] | | [facility] | | | PRODUCT [...] | + + + + + | [facility] | [address] | [place] [address] | | | SERVICES, | [address] [...] + + + + | PRODUCT | [id number] | | [facility] | | | UNIT [...] + + + + | EXPIRATION | [id number] | | [facility] | | | DATE [...] + + + + | BLOOD | [id number] | | [facility] | | | PRODUCT [...] [facility] | [address] | [place] [address] | | | SERVICES, | [address] [...] + + + + | PRODUCT | [id number] | | [facility] | | | UNIT [...] + + + + | EXPIRATION | [id number] | | [facility] | | | DATE [...] + + + + | BLOOD | [id number] | | [facility] | | | PRODUCT [...] [facility] | [address] | [place] [address] | | | SERVICES, | [address] [...] | + + + + + | [facility] | [address] [facility] [facility] | [place] [address] | | | SERVICES, CORE | VILMA [...] | | | LABORATORY | | | [facility] | | | SERVICES, | | | [...] | + + + + + | [facility] | [address] | [place] [address] | | | SERVICES, CORE | VILMA [...] | + + + + + | [facility] | [address] | [place] [address] | | | SERVICES, CORE | PARK [...] | + + + + + | [facility] | [address] | [place], [place] | | | [facility] [place] [facility] | [address] | [address] | | | TESTS | | | [...] Note | + + | Service Account, Digital Envoy In Interface - 09/01/2017 1:40 PM PDT [...] + + + + | PRODUCT | [id number] | | [facility] | | | UNIT [...] + + + + | EXPIRATION | [id number] | | [facility] | | | DATE [...] + + + + | BLOOD | [id number] | | [facility] | | | PRODUCT [...] [facility] | [address] | [place] [address] | | | SERVICES, | [address] [...] + + + + | PRODUCT | [id number] | | [facility] | | | UNIT [...] + + + + | EXPIRATION | [id number] | | [facility] | | | DATE [...] + + + + | BLOOD | [id number] | | [facility] | | | PRODUCT [...] [facility] | [address] | [place] [address] | | | SERVICES, | [address] [...] + + + + | PRODUCT | [id number] | | [facility] | | | UNIT [...] + + + + | EXPIRATION | [id number] | | [facility] | | | DATE [...] + + + + | BLOOD | [id number] | | [facility] | | | PRODUCT [...] [facility] | [address] | [place] [address] | | | SERVICES, | [address] [...] + + + + | PRODUCT | [id number] | | [facility] | | | UNIT [...] + + + + | EXPIRATION | [id number] | | [facility] | | | DATE [...] + + + + | BLOOD | [id number] | | [facility] | | | PRODUCT [...] [facility] | [address] | [place] [id number] | | | SERVICES, | [address] [...] + + + + | PRODUCT | [id number] | | [facility] | | | UNIT [...] + + + + | EXPIRATION | [id number] | | [facility] | | | DATE [...] + + + + | BLOOD | [id number] | | [facility] | | | PRODUCT [...] [facility] | [address] | [place] [address] | | | SERVICES, | [address] [...] + + + + | PRODUCT | [id number] | | [facility] | | | UNIT [...] + + + + | EXPIRATION | [id number] | | [facility] | | | DATE [...] + + + + | BLOOD | [id number] | | [facility] | | | PRODUCT [...] [facility] | [address] | [place] [address] | | | SERVICES, | [address] [...] + + + + | PRODUCT | [id number] | | [facility] | | | UNIT [...] + + + + | EXPIRATION | [id number] | | [facility] | | | DATE [...] + + + + | BLOOD | [id number] | | [facility] | | | PRODUCT [...] [facility] | [address] | [place] [address] | | | SERVICES, | [address] [...] + + + + | PRODUCT | [id number] | | [facility] | | | UNIT [...] + + + + | EXPIRATION | [id number] | | [facility] | | | DATE [...] + + + + | BLOOD | [id number] | | [facility] | | | PRODUCT [...] | + + + + + | [facility] | [address] | [place] [address] | | | SERVICES, | [address] | | | | TRANSFUSION MEDICINE | | | | + + + + + CT HEAD WO CONTRAST (09/01/2017 8:42 AM PDT) + + | Specimen | + + | | + + + + + | Narrative | Performed At | + + + | EXAM: CT head without contrast HISTORY: Follow-up intracranial | [facility] | | hemorrhage. COMPARISON: Multiple prior head [...] + + + + | PRODUCT | [id number] | | [facility] | | | UNIT [...] + + + + | EXPIRATION | [id number] | | [facility] | | | DATE [...] + + + + | BLOOD | [id number] | | [facility] | | | PRODUCT [...] | + + + + + | [facility] | [address] | [place] [address] | | | SERVICES, | [address] [...] | + + + + + | [facility] | [address] | [place] [address] | | | SERVICES, CORE | VILMA [...] [facility] | [address] | [place] [address] | | | SERVICES, CORE | PARK [...] with | | | trauma ICU internet security specialist by Dr. Yang at 4:38 AM. I [...] ligament is injured.Discussed with trauma ICU internet security specialist | | by Dr. Yang at 4:38 AM.I have personally reviewed the images and, if necessary, | | edited the report. I agree with the report as now presented. | |3. Extensive soft tissue edema extending into the cervical and upper thoracic interspinous space, suggestive of interspinous ligament is injured. | | | |Discussed with trauma ICU internet security specialist by Dr. Yang at 4:38 AM. | [...] | | | LABORATORY | | | [facility] | | | SERVICES, | | | [...] [facility] | [address] | [place] [address] | | | SERVICES, CORE | VILMA [...] [facility] | [address] | [place] [address] | | | SERVICES, CORE | PARK [...] [facility] | [address] | [place] [address] | | | SERVICES, CORE [...] | + + + + + | [facility] | [address] [facility] [facility] | [place] [address] | | | [facility] | [address] | | | + [...] pleural spaced was performed. A 32 size Jamaican chest tube was | | | placed [...] ventricles. Discussed with the trauma ICU internet security specialist at 12:12 AM by | | | [...] with | | the trauma ICU internet security specialist at 12:[address] Yang.I have [...] | |Discussed with the trauma ICU internet security specialist at 12:[address] Yang. | [...] [facility] | [address] | [place], [place] | | | [facility] [facility] | [address] | [address] | | | TESTS | | | [...] [facility] | [address] | [place] [address] | | | SERVICES, CORE | VILMA [...] [facility] | [address] | [place] [address] | | | NATALEE WORTHINGTON | [address]ILMA [...] | | + +---------+ + + | [facility] | | | | | VOICE [...] | | + +---------+ + + | [facility] | | | | | VOICE [...] | + + + + + | [facility] | [address] | [place] [address] | | | [facility], NAT[place] | [address] | | | + + + + + X-RAY PORTABLE CHEST 1 VIEW (08/31/2017 7:07 PM PDT) + + | Specimen | + + | | + + + + + | Narrative | Performed At | + + + | STUDY: MN CHEST 1 VIEW HISTORY: Trauma COMPARISON: CT CAP | [facility] | | 08/31/2017 FINDINGS: Endotracheal tube with [...] | + + + + + | [facility] | [address] | [place] [address] | | | SERVICES, CORE | [address]IL[address] [...] Note | + + | Service Account, Dustcloud Res In Interface - 09/01/2017 10:12 AM [...] rib, nondisplaced-Left | | 1st rib fracture, jaquqwveinds-Mpr-xyzkxrnvp left lateral 8th rib fracture-T12 fracture | [...] + + | Performing | Address | City/State[facility] | Phone Number | | Organization [...] [facility] | [address] | [place] [address] | | | SERVICES, | [address] [...] [facility] | [address] | [place] [address] | | | SERVICES, | [address] [...] [facility] | [address] | [place] [address] | | | SERVICES, | [address] [...] - [facility] | [address] | [place], [place] | | | [facility] GE[facility] OF CARE | [address] | [address] | | | TESTS | | | [...] + + + | [facility] | [address] | [place], [place] | | | [facility] OF [facility] | [address] | [address] | | | TESTS | | | [...] [facility] | [address] | [place], [place] | | | [facility] [facility] | [address] | [address] | | | TESTS | | | [...] - [facility] | [address] | [place], [place] | | | [facility] GE[facility] CARE | [facility] | [address] | | | TESTS | | | [...] + + + + | PRODUCT | [id number] | | [facility] | | | UNIT [...] + + + + | EXPIRATION | [id number] | | [facility] | | | DATE [...] + + + + | BLOOD | [id number] | | [facility] | | | PRODUCT [...] LABORATORY | [address] | [place] [address] | | | SERVICES, | [address] [...] + + + + | PRODUCT | [id number] | | [facility] | | | UNIT [...] + + + + | EXPIRATION | [id number] | | [facility] | | | DATE [...] + + + + | BLOOD | [id number] | | [facility] | | | PRODUCT [...] [facility] | [address] | [place] [address] | | | SERVICES, | [address] [...] + + + + | PRODUCT | [id number] | | [facility] | | | UNIT [...] + + + + | EXPIRATION | [id number] | | [facility] | | | DATE [...] + + + + | BLOOD | [id number] | | [facility] | | | PRODUCT [...] | + + + + + | [facility] | [address] | [place] [address] | | | SERVICES, | [address] [...] + + + + | PRODUCT | [id number] | | [facility] | | | UNIT [...] + + + + | EXPIRATION | [id number] | | [facility] | | | DATE [...] + + + + | BLOOD | [id number] | | [facility] | | | PRODUCT [...] | + + + + + | [facility] | [address] | [place] [address] | | | SERVICES, | [address] [...] + + + + | PRODUCT | [id number] | | [facility] | | | UNIT [...] + + + + | EXPIRATION | [id number] | | [facility] | | | DATE [...] + + + + | BLOOD | [id number] | | [facility] | | | PRODUCT [...] | + + + + + | [facility] | [address] | [place] [address] | | | SERVICES, | [address] [...] + + + + | PRODUCT | [id number] | | [facility] | | | UNIT [...] + + + + | EXPIRATION | [id number] | | [facility] | | | DATE [...] + + + + | BLOOD | [id number] | | [facility] | | | PRODUCT [...] | + + + + + | [facility] | [address] | [place] [address] | | | SERVICES, | [address] [...] + + + + | PRODUCT | [id number] | | [facility] | | | UNIT [...] + + + + | EXPIRATION | [id number] | | [facility] | | | DATE [...] + + + + | BLOOD | [id number] | | [facility] | | | PRODUCT [...] | + + + + + | [facility] | [address] | [place] [address] | | | SERVICES, | [address] [...] + + + + | PRODUCT | [id number] | | [facility] | | | UNIT [...] + + + + | EXPIRATION | [id number] | | [facility] | | | DATE [...] + + + + | BLOOD | [id number] | | [facility] | | | PRODUCT [...] [facility] | [address] | [place] [address] | | | SERVICES, | [address] [...] | + + + + + | [facility] | [address] | [place] [address] | | | SERVICES, CORE | [address] [...] | | | LABORATORY | | | [facility] | | | SERVICES, | | | [...] | + + + + + | [facility] | [address] [facility] | [place] [address] | | | SERVICES, CORE | [address] [...] | + + + + + | [facility] | [address] | [place] [address] | | | SERVICES, CORE | PARK [...] [facility] | [address] | [place] [address] | | | SERVICES, CORE | PARK [...] | + + + + + | [facility] | [address] | [place] [address] | | | SERVICES, CORE | [address] [...] | + + + + + | [facility] | [address] | [place] [address] | | | SERVICES, CORE | [address] [...]
--- OUTSIDE RECORDS SUMMARY | ~2019-12-25 | XMS | Encounter Summary ---
Demographics + + + | Address | [address] | | | [place] [address] | + + + | Home Phone [...] + | Author | [facility] | + + + | Organization | [facility] | [...] Team Providers + +------+ + | Care Care Worker Name | Role | Phone | [...] Kimball | | | | | [facility] | [address] | | | | | Hospital Admitting | [place], [place] | | | | | Desk Located on the | [address] | | | | | 9th floor | [phone] | | | | | [place], [place] | | | | | | [address] | Joslyn Boss, | | | | | | [address] | | | | | | [address] | | | | | | [place], [place] | | | | | | [address] | | | | | | [phone] | | | | | | | [...] MD - 09/01/2017 2:45 PM Edel Temple [id number] Allergies not on file No past surgical [...] - 09/01/2017 10:45 AM PDT [place] Temple [id number] Allergies not on file NPO:NPO Status: since [...] File No results found for: RATE, ATRIALRATE, OK, QRS, QT, QTC, PAXIS, RAXIS, TAXIS, EKGDX [...] 1740 Joslyn Boss MD Resident Share 08/31/17 1741 Joslyn Boss MD Resident Share Anesthesia Plan [...] | | | 09/01/17 at 1103, Until Galt 09/01/17 | | | | | | [...]
--- OUTSIDE RECORDS SUMMARY | ~2019-12-25 | XMS | Encounter Summary ---
Demographics + + + | Address | [address] | | | [place] [address] | + + + | Home Phone [...] + + | Author | [facility] | + + + | Organization | [facility] [email or web address] [facility] | [...] Team Providers + +------+ + | Care Software Asset Management Analyst Name | Role | Phone | [...] | | | | Rd [facility] | | | | | | Hospital Admitting | | | | | | Desk Located on the | | | | | | 9th floor | | | | | | [place], [place] | | | | | | [address] | | | +--------+ + + + [...]
== END 2019-12-26 05:27 | disposition home or self-care (01) ==
LOC: ED 23:54
DX: S59.202A Unspecified physeal fracture of lower end of radius, left arm, initial encounter for closed fracture (principal); F10.129 Alcohol abuse with intoxication, unspecified; F17.200 Nicotine dependence, unspecified, uncomplicated; Z79.899 Other long term (current) drug therapy; W19.XXXA Unspecified fall, initial encounter
CPT/HCPCS: 73110; 99284-25

== ENCOUNTER 2020-02-06 10:57 | Emergency (ER) | payer OTHER ==
[~2020-02-06] VITALS: Ht 170.2 cm; Wt 78.4 kg
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
--- OUTSIDE RECORDS SUMMARY | ~2020-02-06 | XMS | Encounter Summary ---
Demographics + + + | Address | [address] | | | [place] [address] | + + + | Home Phone [...] + + + | Author | [facility] | + + + | Organization | [facility] [employer] [facility] | + + + | Address | Unknown | + + + | Phone | Unavailable | + + + Support + + +---------+ + | Name | Relationship | Address | Phone | + + +---------+ + | Kaylie Baig | ECON | Unknown | | + + +---------+ + Care Team Providers + +------+ + | Care Adjuster Arbitrator Name | Role | Phone | + +------+ + | No Pcp Per Patient | PCP | Unavailable | + +------+ + Encounter Details +--------+ + + + + | Date | Type | Department | Care Team | Description | +--------+ + + + + | 08/31/ | Procedure | Diagnostic Imaging | | | | 2018 | Pass | Services at [facility] | | | | | | [address] | | | | | | [place] | | | | | | [facility] | | | | | | [place], [place] | | | | | | [address] | | | | | | [phone] | | | +--------+ + + + [...]
--- OUTSIDE RECORDS SUMMARY | ~2020-02-06 | XMS | Encounter Summary ---
Demographics + + + | Address | [address] | | | [place] [address] | + + + | Home Phone | | + + + | Preferred Language | Unknown | + + + | Marital Status | Single | + + + | Christianity Affiliation | PEN | + + + | Race | or | + + + | Ethnic Group | Not or | + + + Author + + + | Author | [facility] [employer] [facility] | + + + | Organization | [facility] [employer] [facility] | + + + | Address | Unknown | + + + | Phone | Unavailable | + + + Support + + +---------+ + | Name | Relationship | Address | Phone | + + +---------+ + | Kaylie Baig | ECON | Unknown | | + + +---------+ + Care Team Providers + +------+ + | Care Rotary Drier Feeder Name | Role | Phone | + +------+ + | No Pcp Per Patient | PCP | Unavailable | + +------+ + Encounter Details +--------+ + + + + | Date | Type | Department | Care Team | Description | +--------+ + + + + | 11/05/ | Procedure | 6A Intra Op [address] | | | | 2018 | Pass | [address] | | | | | | Rd [facility] | | | | | | Hospital Admitting | | | | | | Desk Located on the | | | | | | 9th floor | | | | | | [place], [place] | | | | | | [address] | | | +--------+ + + + [...]
--- OUTSIDE RECORDS SUMMARY | ~2020-02-06 | XMS | Encounter Summary ---
Demographics + + + | Address | [address] | | | [place] [address] | + + + | Home Phone | | + + + | Preferred Language | Unknown | + + + | Marital Status | Single | + + + | Voodoo Affiliation | PEN | + + + | Race | or | + + + | Ethnic Group | Not or | + + + Author + + + | Author | [facility] [employer] [facility] | + + + | Organization | [facility] [employer] [facility] | + + + | Address | Unknown | + + + | Phone | Unavailable | + + + Support + + +---------+ + | Name | Relationship | Address | Phone | + + +---------+ + | Kaylie Baig | ECON | Unknown | | + + +---------+ + Care Team Providers + +------+ + | Care Glue Line Operator Name | Role | Phone | [...] CENTER | | | | | | [address] | | | | | | [place] | | | | | | [facility], [address] [place] [address] | | | | | | [place], [place] | | | | | | [address] | | | | | | [phone] | | | +--------+ + + + [...]
--- OUTSIDE RECORDS SUMMARY | ~2020-02-06 | XMS | Encounter Summary ---
Demographics + + + | Address | [address] | | | [place] [address] | + + + | Home Phone | | + + + | Preferred Language | Unknown | + + + | Marital Status | Single | + + + | Sabianism Affiliation | PEN | + + + | Race | or | + + + | Ethnic Group | Not or | + + + Author + + + | Author | [facility] [employer] [facility] | + + + | Organization | [facility] [employer] [facility] | + + + | Address | Unknown | + + + | Phone | Unavailable | + + + Support + + +---------+ + | Name | Relationship | Address | Phone | + + +---------+ + | Kaylie Baig | ECON | Unknown | | + + +---------+ + Care Team Providers + +------+ + | Care Stockroom Supervisor Name | Role | Phone | [...] | | | | | Procedures | [place], [place] | [place] | | | | | REQUEST TO | [address] | [address] | | | | | SURGERY | Phone: | Phone: | | | | | LINK TRAINER TEACHER | [phone] | [phone] | | | | | TN REPLACE | Fax: | Fax: | | | | | SKULL | [phone] | [phone] | | | | | PLATE/FLAP | | | | | | | TN REPAIR | | | | | | | SKULL | | | | | | | DEFECT,UP TO | | | | | | | 5CM TN | | | | | | | REPAIR SKULL | | | | | | | DEFECT,>5CM | | | | | | | TN | | | | | | | [...] + + + + | 10/31/ | Load Out Person | [facility] | Magdiel Stock MD | Skull defect | | 2018 | | [facility] [id number] | [address] | (Primary Dx) | | | | annabelle Cunningham for | [place], | | | | | [facility], | [place] [address] | | | | | [place] [address] | [phone] | | | | | [place], [place] | | | | | | [address] | | | | | | [phone] | | | +--------+ + + + [...]
--- OUTSIDE RECORDS SUMMARY | ~2020-02-06 | XMS | Encounter Summary ---
Demographics + + + | Address | [address] | | | [place] [address] | + + + | Home Phone [...] Author | [facility] [employer] [facility] | + + + | Organization | [facility] [employer] [facility] | + + + | Address | Unknown | + + + | Phone | Unavailable | + + + Support + + +---------+ + | Name | Relationship | Address | Phone | + + +---------+ + | Kaylie Baig | ECON | Unknown | | + + +---------+ + Care Team Providers + +------+ + | Care Range Aid Name | Role | Phone | + [...] | | | | | | Rd [facility] | | | | | | Hospital Admitting | | | | | | Desk Located on the | | | | | | 9th floor | | | | | | [place], [place] | | | | | | [address] | | | +--------+ + + + [...]
--- OUTSIDE RECORDS SUMMARY | ~2020-02-06 | XMS | Encounter Summary ---
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 | | | | | /[id number] | + + CT HEAD WO CONTRAST [...] Note | + + | Service Account, EdPuzzle Res In Interface - 11/05/2017 8:20 PM [...] Surgeon: Magdiel | | | MD Dayami Chef: Rg Aiken MD Pre-op Diagnosis: | | [...] PGY-4 Neurological Surgery Pager | | | [phone] | | + + + CAPILLARY BLOOD [...] [facility] | [address] | [place], [place] | | | GLORIA GENAO OF CARE | [address] | [address] | | | TESTS | | | [...] RAPHAELAM | [address] | [place], [place] | | | [facility] OF CARE | [address] | [address] | | | TESTS | | | [...] Note | + + | Service Account, [employer] In Interface - 11/05/2017 11:31 AM PDT [...] + + + + + | [facility] | [address] | [place] [address] | | | NATALEE WORTHINGTON | VILMA [...] | + + + + + | [facility] | [address] | [place] [address] | | | SERVICES, CORE | PARK [...] | | | LABORATORY | | | AUSTRIAN | | | SERVICES, | | | [...] + + + + + | [facility] | [address] | [place] [address] | | | SERVICES, CORE | PARK [...] + + + + + | [facility] | [address] | [place] [address] | | | ELIN, NATALEE | VILMA [...] + + + + | PRODUCT | [id number] | | [facility] | | | UNIT [...] + + + + | EXPIRATION | [id number] | | [facility] | | | DATE [...] + + + + | BLOOD | [id number] | | [facility] | | | PRODUCT [...] | + + + + + | [facility] | [address] | [place] [address] | | | SERVICES, | [address] [...] + + + + | PRODUCT | [id number] | | [facility] | | | UNIT [...] + + + + | EXPIRATION | [id number] | | [facility] | | | DATE [...] + + + + | BLOOD | [id number] | | [facility] | | | PRODUCT [...] [facility] | [address] | [place] [address] | | | SERVICES, | [address] [...] [facility] | [address] | [place] [address] | | | SERVICES, CORE | PARK [...] [facility] | [address] | [place] [address] | | | SERVICES, | [address] [...] [facility] | [address] | [place] [address] | | | SERVICES, | [address] [...] | + + + + + | [facility] | [address] | [place] [address] | | | SERVICES, CORE | VILMA [...] OF | [address] | [place], [place] | | | CARDIOLOGY | [address] | [address] | | + + + + + [...] [facility] | [address] | [place] [address] | | | ELIN, CORE | VILMA [...] + + + + + | [facility] | [address] | [place] [address] | | | SERVICES, NATALEE | VILMA [...] + | [facility] - AIRPORT - | [address] | [place] [address] | | | [place] | | | [...] [facility] | [address] | [place] [address] | | | SERVICES, CORE | PARK [...] | + + + + + | [facility] | [address] | [place] [address] | | | SERVICES, CORE | VILMA [...] | | | LABORATORY | | | AUSTRIAN | | | SERVICES, | | | [...] + + + + + | [facility] | [address] | [place] [address] | | | SERVICES, CORE | [address] | | | + + + + + MAGNESIUM, PLASMA (11/04/2017 5:59 AM PDT) + +-------+ + + + | Component | Value | Ref Range | Performed | Pathologist | | | | | At | Signature | + +-------+ + + + | MAGNESIUM,P | 2.1 | 1.6 - 2.6 mg/dL | [facility] | | | LASMA | | | [...] + + + + + | [facility] | [address] | [place] [address] | | | SERVICES, CORE | [address] | | | + + + + + MAGNESIUM, PLASMA (11/03/2017 4:39 AM PDT) + +-------+ + + + | Component | Value | Ref Range | Performed | Pathologist | | | | | At | Signature | + +-------+ + + + | MAGNESIUM,P | 2.0 | 1.6 - 2.6 mg/dL | [facility] [...] [facility] | [address] | [place] [address] | | | ELIN, NATALEE | [address]IL[address] [...] | | | LABORATORY | | | AUSTRIAN | | | SERVICES, | | | [...] | + + + + + | [facility] | [address] | [place] [address] | | | SERVICES, CORE | VILMA [...] | + + + + + | [facility] | [address] | [place] [address] | | | SERVICES, CORE | VILMA [...] | | | LABORATORY | | | AUSTRIAN | | | SERVICES, | | | [...] + + + + + | [facility] | [address] | [place] [address] | | | SERVICES, CORE | [address] | | | + + + + + 12 LEAD ECG (11/01/2017 3:20 PM PDT) + + + + + + | Component | Value | Ref Range | Performed | Pathologist | | | | | At | Signature | + + + + + + | VENTRICULAR | 62 | bpm | [facility] DEPT | | | RATE | | [...] + + | [facility] GEET OF | [address] | [place], [place] | | | CARDIOLOGY | [address] | [address] | | + + + + + [...] | + + + + + | [facility] | [address] | [place] [address] | | | SERVICES, CORE | VILMA [...] | | | LABORATORY | | | AUSTRIAN | | | SERVICES, | | | [...] | + + + + + | [facility] | [address] | [place] [address] | | | SERVICES, CORE | VILMA [...] Note | + + | Service Account, [employer] In Interface - 10/31/2017 8:22 PM PDT [...] + + + + | LAUREN | 443 | ms | [facility] [...] | [facility] | [address] | [place], [place] | | | CARDIOLOGY | [facility] | [address] | | + + + + + [...] | | | LABORATORY | | | AUSTRIAN | | | SERVICES, | | | [...] LABORATORY | [address] | [place] [address] | | | SERVICES, CORE | PARK [...] + + + + + | [facility] | [address] | [place] [address] | | | NATALEE WORTHINGTON | VILMA [...] | 70 - 99 mg/dL | [facility] - | | | [...] [facility]USH | [address] | [place], [place] | | | GLORIA GENAO OF CARE | [address] | [address] | | | TESTS | | | [...] [facility] | [address] | [place] [address] | | | SERVICES, CORE | PARK [...] | | | LABORATORY | | | AUSTRIAN | | | SERVICES, | | | [...] MDRD equation recommended by the | [facility] | | National Kidney [...] + + + + + | [facility] | [address] | [place] [address] | | | NATALEE WORTHINGTON | VILMA [...] Note | + + | Service Account, EdPuzzle Res In Interface - 10/29/2017 12:13 PM [...] PIYUSH | [address] | [place], [place] | | | GLORIA GENAO OF [facility] | [facility] | [address] | | | TESTS | | | [...] | + + + + + | [facility] | [address] | [place] [address] | | | SERVICES, CORE | VILMA [...] | | | LABORATORY | | | AUSTRIAN | | | SERVICES, | | | [...] + + + + + | [facility] | [address] | [place] [address] | | | SERVICES, CORE | VILMA [...] (H) | 70 - 99 mg/dL | [facility] - | | | GLUCOSE, | | [...] P[facility]T | [address] | [place], [place] | | | [facility]INT OF CARE | [address] | [address] | | | TESTS | | | [...] + + + + | LAUREN | 463 | ms | [facility] [...] DEPT OF | [address] | [place], [place] | | | CARDIOLOGY | [address] | [address] | | + + + + + CAPILLARY BLOOD GLUCOSE (NO CHG), POC (10/28/2017 12:00 PM PDT) + +---------+ + + + | Component | Value | Ref Range | Performed | Pathologist | | | | | At | Signature | + +---------+ + + + | BLOOD | 141 (H) | 70 - 99 mg/dL | [facility] - | | | [...] P[facility]T | [address] | [place], [place] | | | GL[facility]IA GENAO OF CARE | [address] | [address] | | | TESTS | | | [...] MARQU[facility] | [address] | [place], [place] | | | GLORIA GENAO OF CARE | [address] | [address] | | | TESTS | | | [...] + + + + + | [facility] | [address] | [place] [address] | | | SERVICES, NATALEE | PARK [...] + | [facility] - | [address] | [place] [address] | | | [place] | | | [...] [facility] | [address] | [place] [address] | | | SERVICES, CORE | [address]ARK [...] | 1.23 | 1.14 - 1.28 | [facility] | | | CORRECTED | | mmol/L [...] + + + + + | [facility] | [address] | [place] [address] | | | SERVICES, CORE | PARK [...] [facility] | [address] | [place] [address] | | | SERVICES, CORE | [address]ARK [...] | | | LABORATORY | | | AUSTRIAN | | | SERVICES, | | | [...] MDRD equation recommended by the | [facility] | | National Kidney [...] + + + + + | [facility] | [address] | [place] [id number] | | | SERVICES, CORE | VILMA [...] [facility] | [address] | [place] [address] | | | ELIN, NATALEE | VILMA [...] PIYUSH | [address] | [place], [place] | | | [facility] CARE | [address] | [address] | | | TESTS | | | [...] | 70 - 99 mg/dL | [facility] - | | | [...] [facility] | [address] | [place], [place] | | | [facility]IA GENAO [facility] | [address] | [address] | | | TESTS | | | [...] Note | + + | Service Account, EdPuzzle Res In Interface - 10/28/2017 9:21 AM [...] cavity, which may be postprocedural in na orine. | | | |I have personally reviewed [...] | + + + | EXAM: CT CHEST PICC [...] correct | | | patient, procedure, equipment, systems support officer and site/side marked as | | | [...] vein. Catheter lot number: | | | [id number] with a length of 55 cm was [...] [facility] | [address] | [place], [place] | | | [facility]INT [facility] CARE | [address] | [address] | | | TESTS | | | [...] DEPT OF | [address] | [place], [place] | | | CARDIOLOGY | [address] | [address] | | + + + + + [...] MARQUAM | [address] | [place], [place] | | | GLORIA GENAO OF CARE | [address] | [address] | | | TESTS | | | [...] + + + + + | [facility] | [address] | [place] [address] | | | NATALEE WORTHINGTON | PARK [...] | | | LABORATORY | | | AUSTRIAN | | | SERVICES, | | | [...] | + + + + + | [facility] | [address] | [place] [address] | | | SERVICES, CORE | VILMA [...] MARQU[facility] | [address] | [place], [place] | | | GLORAI GENAO OF [facility] | [address] | [address] | | | TESTS | | | [...] - [facility] | [address] | [place], [place] | | | [facility] CARE | [address] | [address] | | | TESTS | | | [...] + + + | [facility] | [address] | [place], [place] | | | [place] [facility] | [address] | [address] | | | TESTS | | | [...] + + | [facility] | [address] | [place] [address] | | | SERVICES, CORE | PARK [...] | | | LABORATORY | | | AUSTRIAN | | | SERVICES, | | | [...] | + + + + + | [facility] | [address] | [place] [address] | | | [facility] | [address] | | | + + + + + CAPILLARY BLOOD GLUCOSE (NO CHG), POC (10/26/2017 12:58 AM PDT) + +---------+ + + + | Component | Value | Ref Range | Performed | Pathologist | | | | | At | Signature | + +---------+ + + + | BLOOD | 103 (H) | 70 - 99 mg/dL | [facility] - | | | [...] P[facility]T | [address] | [place], [place] | | | [facility] OF CARE | [address] | [address] | | | TESTS | | | [...] | | | LABORATORY | | | AUSTRIAN | | | SERVICES, | | | [...] + + + + + | [facility] | [address] | [place] [address] | | | SERVICES, CORE | VILMA [...] + + + | [facility] | [address] | [place], [place] | | | GLORIA GENAO OF [employer] | [address] | [address] | | | TESTS | | | [...] + + + + | QTC-HALIMA | 439 | ms | [facility] [...] DEPT OF | [address] | [place], [place] | | | CARDIOLOGY | [address] | [address] | | + + + + + [...] [facility] | [address] | [place], [place] | | | GLORIA GENAO [facility] | [address] | [address] | | | TESTS | | | [...] + + + + | QTC-BAZETT | 458 | ms | [facility] [...] [facility] | [address] | [place], [place] | | | CARDIOLOGY | [address] | [address] | | + + + + + [...] | + + + + + | [facility] | [address] | [place] [address] | | | SERVICES, CORE | V[address] [...] + | [facility] - | [address] | [place] [address] | | | [place] | | | | + + + [...] and new reporting units as of | [facility] | | 09/30/2013. | LABORATORY | | | SERVICES, NATALEE | + + + + + + + + | Performing | Address | City/State/Zipcode | Phone Number | | Organization | | | | + + + + + | [facility] | [address] | [place] [address] | | | SERVICES, NATALEE | [address]ARK [...] [facility] | [address] | [place] [address] | | | SERVICES, CORE | [address]ARK [...] [facility] | [address] | [place] [address] | | | SERVICES, NATALEE | VILMA [...] [facility] | [address] | [place] [address] | | | SERVICES, CORE | PARK [...] + + + + + | [facility] Sphere [facility] | [address] | [place] [address] | | | SERVICES, CORE | VILMA [...] + + + + + | [facility] | [address] | [place] [address] | | | SERVICES, CORE | PARK [...] + + + + + | [facility] | [address] | [place] [address] | | | SERVICES, CORE | PARK [...] [facility] | [address] | [place] [address] | | | SERVICES, CORE | PARK [...] | + + + + + | [facility] | [address] | [place] [address] | | | SERVICES, CORE | VILMA [...] [facility] | [address] | [place] [address] | | | SERVICES, CORE | [address]ARK [...] | | | LABORATORY | | | AUSTRIAN | | | SERVICES, | | | [...] MDRD equation recommended by the | [facility] | | National Kidney [...] | + + + + + | [facility] | [address] | [place] [address] | | | NATALEE WORTHINGTON | [address] [...] | | | correct patient, procedure, equipment, systems support officer and site/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 Catheter lot number: [id number] with a length of 55 | | [...] | + + + | EXAM: CT CHEST 1 [...] + | [facility] | [address] | [place], [place] | | | [place] [facility] | [address] | [address] | | | TESTS | | | [...] | | Surgical Critical Care, PGY7 Pager: [phone] | | + + + CAPILLARY BLOOD [...] PIYUSH | [address] | [place], [place] | | | GLORIA GENAO OF [employer] | [facility] | [address] | | | TESTS | | | [...] - [facility] | [address] | [place], [place] | | | [place] [facility] | [address] | [address] | | | TESTS | | | [...] | | | LABORATORY | | | AUSTRIAN | | | SERVICES, | | | [...] + + | Performing | Address | City[facility]State[facility] | Phone Number | | Organization | | | | + + + + + | [facility] | [address] | [place] [address] | | | ELIN, NATALEE | PARK [...] [facility] | [address] | [place] [address] | | | NATALEE WORTHINGTON | VILMA [...] [facility] | [address] | [place], [place] | | | GLORIA GENAO OF [facility] | [facility] | [address] | | | TESTS | | | [...] + + + + + | [facility] | [address] | [place] [address] | | | SERVICES, CORE | VILMA [...] | | | LABORATORY | | | AUSTRIAN | | | SERVICES, | | | [...] | + + + + + | [facility] | [address] | [place] [address] | | | SERVICES, CORE | VILMA [...] + + | [facility]PT OF | [address] | [place], [place] | | | CARDIOLOGY | [address] | [address] | | + + + + + IR GASTROSTOMY TUBE EXCHANGE (10/22/2017 2:42 PM PDT) + + | Specimen | + + | | + + + + + | Narrative | Performed At | + + + | Procedure: Gastrostomy tube exchange Primary attending | [facility] | | accounts receivable representative: Shade Nix M.D. Preoperative diagnosis: | RADIOLOGY VOICE | | Malfunctioning Gastrostomy tube Postoperative diagnosis: Same | RECOGNITION | | Operations: Operation 1. Removal of existing Gastrostomy tube | | | over a guide wire Operation 2. Placement of 24 Ivorian GABRIEL | | | gastrostomy over guide [...] a stiff glide wire the new 24 Ivorian gastrostomy tube was | | | inserted. [...] Procedure: | | Gastrostomy tube exchangePrimary attending accounts receivable representative: Shade Nix, | | BrynPreoperative diagnosis: Malfunctioning Gastrostomy tubePostoperative diagnosis: | | SameOperations:Operation 1. Removal of existing Gastrostomy tube over a guide | | wireOperation 2. Placement of 24 Ivorian GABRIEL gastrostomy over guide wireNo sedation was [...] glide wire the | | new 24 Ivorian gastrostomy tube was inserted. The position of [...] stiff g lide wire the new 24 Ivorian | |gastrostomy tube was inserted. The position [...] Account, Radiant Res In Interface - 10/22/2017 10:34 AM [...] + + | [facility] | [address] | [place], [place] | | | CARDIOLOGY | [address] | [address] | | + + + + + [...] + + + + + | [facility] | [address] | [place] [address] | | | NATALEE [place] | [address] [...] | | | LABORATORY | | | AUSTRIAN | | | SERVICES, | | | [...] | + + + + + | [facility] | [address] | [place] [address] | | | SERVICES, CORE | [address] [...] IMPRESSION | by: JULIO VIZCAINO | | SRIDEVI | | | | 10-21-2017 18:00:01 | [...] DEPT OF | [address] | [place], [place] | | | CARDIOLOGY | [address] | [address] | | + + + + + [...] | | | LABORATORY | | | AUSTRIAN | | | SERVICES, | | | [...] + + + + + | [facility] | [address] | [place] [address] | | | SERVICES, CORE | PARK [...] | + + + + + | [facility] | [address] | [place] [address] | | | SERVICES, NATALEE | [address] [...] DEPT OF | [address] | [place], [place] | | | CARDIOLOGY | [address] | [address] | | + + + + + [...] + + + + + | [facility] | [address] | [place] [address] | | | SERVICES, CORE | PARK [...] | | | LABORATORY | | | AUSTRIAN | | | SERVICES, | | | [...] + + + + + | [facility] | [address] | [place] [address] | | | SERVICES, CORE | [address] [...] + | [facility] | [address] | [place], [place] | | | CARDIOLOGY | [address] | [address] | | + + + + + [...] | | | LABORATORY | | | AUSTRIAN | | | SERVICES, | | | [...] + + + + + | [facility] | [address] | [place] [address] | | | SERVICES, CORE | [address] [...] + + + + + | [facility] | [address] | [place] [address] | | | SERVICES, CORE | [address] | | | + + + + + 12 LEAD ECG (10/16/2017 11:23 AM PDT) + + + + + + | Component | Value | Ref Range | Performed | Pathologist | | | | | At | Signature | + + + + + + | [facility] | 63 | bpm | [facility] | | [...] DEPT OF | [address] | [place], [place] | | | CARDIOLOGY | [address] | [address] | | + + + + + [...] | | | LABORATORY | | | AUSTRIAN | | | SERVICES, | | | [...] [facility] | [address] | [place] [address] | | | SERVICES, CORE | PARK [...] | + + + + + | [facility] | [address] | [place] [address] | | | SERVICES, CORE | VILMA [...] Note | + + | Service Account, EdPuzzle Res In Interface - 10/15/2017 3:58 PM [...] + + + + | QTC-BAZETT | 458 | ms | [facility] [...] + | [facility] | [address] | [place], [place] | | | CARDIOLOGY | [address] | [address] | | + + + + + [...] [facility] | [address] | [place], [place] | | | [facility]ICK POINT OF CARE | [address] | [address] | | | TESTS | | | [...] [facility] | [address] | [place] [address] | | | NATALEE WORTHINGTON | VILMA [...] [facility] | [address] | [place], [place] | | | GLORIA GENAO OF [facility] | [address] | [address] | | | TESTS | | | | + + + + + 12 LEAD ECG (10/14/2017 12:23 PM PDT) + + + + + + | Component | Value | Ref Range | Performed | Pathologist | | | | | At | Signature | + + + + + + | VENTRICULAR | 61 | bpm | [facility] | | | RATE | | [...] DEPT OF | [address] | [place], [place] | | | CARDIOLOGY | [address] | [address] | | + + + + + [...] [facility] | [address] | [place] [address] | | | SERVICES, CORE | PARK [...] | | | LABORATORY | | | AUSTRIAN | | | SERVICES, | | | [...] + + + + + | [facility] | [address] | [place] [address] | | | SERVICES, CORE | VILMA [...] | + + + + + | [facility] | [address] | [place] [address] | | | NATALEE WORTHINGTON | VILMA [...] [facility] | [address] | [place], [place] | | | HILL, POINT OF CARE | [address] | [address] | | | TESTS | | | [...] [facility] | [address] | [place], [place] | | | GLORIA GENAO OF CARE | [address] | [address] | | | TESTS | | | [...] + + + + + | [facility] | [address] | [place] [address] | | | NATALEE WORTHINGTON | VILMA [...] | | | LABORATORY | | | AUSTRIAN | | | SERVICES, | | | [...] | + + + + + | [facility] | [address] | [place] [address] | | | SERVICES, CORE | [address] | | | + + + + + OPERATION RECORD (10/12/2017 8:50 PM PDT) + + | Procedure Note | + + | Pilar Cotto MD - 10/12/2017 8:50 PM PDT Date of Service: 10/12/2017 | | Attending Surgeon: Chaz Hernandez MD Chef(s): Randell Dixon M.D., | | fellow. George [...] saline. We then | | placed a 19-Ivorian drain deep into the abscess cavity, tracking [...] 10/12/2017 19:50:06DT: 10/12/2017 20:50:54Job #: | | [id number] | + + X-RAY PORTABLE CHEST 1 VIEW (10/12/2017 7:50 PM PDT) + + | Specimen | + + | | + + + + + | Narrative | Performed At | + + + | EXAM: CT CHEST 1 [...] [facility] | [address] | [place], [place] | | | [facility]ICK POINT OF CARE | [address] | [address] | | | TESTS | | | [...] Sanchez MD 10/12/2017 5:04 PM Preliminary: Dae Izaguirre MD Dictation initiated: Dae Izaguirre MD 10/12/2017 9:04 [...] | + + + + + | [facility] | [address] | [place] [address] | | | SERVICES, CORE | VILMA [...] | | | LABORATORY | | | AUSTRIAN | | | SERVICES, | | | [...] LABORATORY | [address] | [place] [address] | | | SERVICES, CORE | PARK [...] [facility] | [address] | [place] [address] | | | SERVICES, CORE | VILMA [...] DEPT OF | [address] | [place], [place] | | | CARDIOLOGY | [address] | [address] | | + + + + + [...] OF | [address] | [place], [place] | | | CARDIOLOGY | [facility] | [address] | | + + + + + [...] | + + + + + | [facility] | [address] | [place] [address] | | | SERVICES, CORE | VILMA [...] + + | [facility] | [address] | [place] [address] | | | SERVICES, CORE | PARK [...] | | | LABORATORY | | | AUSTRIAN | | | SERVICES, | | | [...] [facility] | [address] | [place] [address] | | | SERVICES, [facility] | [address] | | | + + + + + PROCEDURE NOTE (10/10/2017 10:00 PM PDT) + + + | Narrative | Performed At | + + + | Darius Link MD 10/12/2017 11:11 AM OPERATIVE REPORT | | | DATE OF OPERATION: 10/10/2017 ATTENDING SURGEON: 1. Dr. Hernandez | | | RIG WELDER: 1. Darius Link MD INDICATIONS: Dysphagia | | | and need for branch operations specialist nutrition access PREOPERATIVE DIAGNOSIS: | | | 1.Dysphagia and need for branch operations specialist nutrition access | | | POSTOPERATIVE DIAGNOSIS: [...] | | | [place] [id number] Chief Resident | | | Neurosurgery | [...] | + + + + + | [facility] | [address] | [place] [address] | | | SERVICES, CORE | VILMA [...] | | | LABORATORY | | | AUSTRIAN | | | SERVICES, | | | [...] [facility] | [address] | [place] [address] | | | SERVICES, CORE | VILMA [...] | + + + + + | [facility] | [address] | [place] [address] | | | SERVICES, NATALEE | [address] | | | + + + + + OPERATION RECORD (10/10/2017 12:40 PM PDT) + + | Procedure Note | + + | Magdiel Stock MD - 10/10/2017 12:40 PM PDT Date of Service: 10/10/2017 Attending | | Surgeon: Magdiel Stock MD Chef(s): Cecilia Jackson | | . Preoperative Diagnoses: 1. Cranioplasty [...] This is a 67-year-old male. Please see [facility] for full details. He | | was [...] the note for this encounter.Sonal Nunez MDSAINT [facility] [id number] [facility] | | [place] [id number] Orina, MDFA/MODLDD: | | 10/10/2017 11:52:15DT: 10/10/2017 12:40:41Job #: [id number] | | | | | |I was present for the critical portions of the procedure as described in the note for this encounter. | | | |Magdiel Stock MD | | | |Magdiel Stock MD | |[facility] 8C | |[address] [facility] | |[facility] | |[place] [address] | |[phone] | | | | | |Magdiel Stock MD | |FAH/MODL | | | | | | /[id number] | + + X-RAY ABDOMEN 1 VIEW [...] + | [facility] - | [address] | [place] [address] | | | [place] | | | [...] + | [facility] | [address] | [place] [address] | | | [place] | | | [...] Gram Stain: No squamous epithelial cells | [place] | | Many polymorphonuclear cells No organisms seen | | + + + + + + + + | Performing | Address | City/State/Zipcode | Phone Number | | Organization | | | | + + + + + | [facility] | [address] | [place] [address] | | | [place] | | | | + + + [...] detected | [facility] - | | | [place] | + + + + + + + + | Performing | Address | City/State/Zipcode | Phone Number | | Organization | | | | + + + + + | [facility] | [address] | [place] [address] | | | [place] | | | | + + + [...] + | [facility] | [address] | [place] [address] | | | [place] | | | | + + + [...] Gram Stain: No squamous epithelial cells | [place] | | Many polymorphonuclear cells No organisms seen | | + + + + + + + + | Performing | Address | City/State/Zipcode | Phone Number | | Organization | | | | + + + + + | [facility] | [address] | [place] [address] | | | [place] | | | | + + + [...] + | [facility] | [address] | [place] [address] | | | [place] | | | [...] Gram Stain: No squamous epithelial cells | [place] | | Few polymorphonuclear cells No organisms seen | | + + + + + + + + | Performing | Address | City/State/Zipcode | Phone Number | | Organization | | | | + + + + + | [facility] | [address] | [place] [address] | | | [place] | | | [...] + | [facility] | [address] | [place] [address] | | | [place] | | | | + + + [...] + | [facility] | [address] | [place] [address] | | | [place] | | | [...] Gram Stain: No squamous epithelial cells | [facility] | | Moderate polymorphonuclear cells No organisms seen | | + + + + + + + + | Performing | Address | City/State/Zipcode | Phone Number | | Organization | | | | + + + + + | [facility] | [address] | [place] [address] | | | [place] | | | [...] detected | [facility] - | | | [place] | + + + + + + + + | Performing | Address | City/State/Zipcode | Phone Number | | Organization | | | | + + + + + | [facility] | [address] | [place] [address] | | | [place] | | | [...] + | [facility] | [address] | [place] [address] | | | [place] | | | | + + + [...] 1+ Pseudomonas aeruginosa Refer to culture | [facility] - | | collected 10/10/17 at 0903 for susceptibilities No anaerobic | [facility] - | | organisms isolated Gram Stain: No squamous epithelial cells | [place] | | Moderate polymorphonuclear cells No organisms seen | | + + + + + + + + | Performing | Address | City/State/Zipcode | Phone Number | | Organization | | | | + + + + + | [facility] - | [address] | [place] [address] | | | [place] | | | | + + + [...] + | [facility] | [address] | [place] [address] | | | [place] | | | [...] + | [facility] | [address] | [place] [address] | | | [place] | | | [...] + | [facility] | [address] | [place] [address] | | | [facility] | | | | + + + [...] + | [facility] | [address] | [place] [address] | | | [place] | | | [...] [facility] | [address] | [place] [address] | | | SERVICES, CORE | VILMA [...] [facility] | [address] | [place] [address] | | | SERVICES, CORE | VILMA [...] [facility] | [address] | [place] [address] | | | SERVICES, CORE | PARK [...] | | | LABORATORY | | | AUSTRIAN | | | SERVICES, | | | [...] the MDRD equation recommended by the | [facility] | | National Kidney Disease Education Program. [...] + + + + + | [facility] | [address] | [place] [address] | | | NATALEE WORTHINGTON | VILMA [...] + + | QTC-BAMARIA DEL CARMEN | 493 | ms | [facility] [...] DEPT OF | [address] | [place], [place] | | | CARDIOLOGY | [address] | [address] | | + + + + + [...] + + + + | PRODUCT | [id number] | | [facility] | | | UNIT [...] + + + + | EXPIRATION | [id number] | | [facility] | | | DATE [...] + + + + | BLOOD | [id number] | | [facility] | | | PRODUCT [...] | + + + + + | [facility] | [address] | [place] [address] | | | SERVICES, | [address] [...] + + + + | PRODUCT | [id number] | | [facility] | | | UNIT [...] + + + + | EXPIRATION | [id number] | | [facility] | | | DATE [...] + + + + | BLOOD | [id number] | | [facility] | | | PRODUCT [...] | + + + + + | [facility] | [address] | [place] [address] | | | SERVICES, | [address] [...] [facility] | [address] | [place] [address] | | | SERVICES, | [address] [...] [facility] | [address] | [place] [address] | | | SERVICES, | [address] [...] [facility] | [address] | [place] [address] | | | SERVICES, | [address] [...] | + + + + + | [facility] | [address] | [place] [address] | | | SERVICES, CORE | VILMA [...] DEPT OF | [address] | [place], [place] | | | CARDIOLOGY | [address] | [address] | | + + + + + [...] Note | + + | Service Account, EdPuzzle Res In Interface - 10/08/2017 10:47 AM [...] [facility] | [address] | [place], [place] | | | GLORIA GENAO OF CARE | [address] | [address] | | | TESTS | | | [...] | + + + + + | [facility] | [address] | [place] [address] | | | SERVICES, CORE | PARK [...] [facility] | [address] | [place] [address] | | | ELIN, NATALEE | VILMA [...] | | | LABORATORY | | | AUSTRIAN | | | SERVICES, | | | [...] + + + + + | [facility] | [address] | [place] [address] | | | SERVICES, CORE | VILMA [...] RAPHAELAM | [address] | [place], [place] | | | GLORIA GENAO OF CARE | [facility] | [address] | | | TESTS | | | [...] | 70 - 99 mg/dL | [facility] - | | | [...] [facility] | [address] | [place], [place] | | | CH[facility]ICK POINT OF CARE | [address] | [address] | | | TESTS | | | [...] [facility] | [address] | [place], [place] | | | GLORIA GENAO OF [facility] | [facility] | [address] | | | TESTS | | | [...] [facility] | [address] | [place], [place] | | | GLORIA GENAO OF [facility] | [facility] | [address] | | | TESTS | | | [...] | 70 - 99 mg/dL | [facility] - | | | [...] [facility] | [address] | [place], [place] | | | [facility] POINT OF CARE | [address] | [address] | | | TESTS | | | [...] + + + + + | [facility] | [address] | [place] [address] | | | NATALEE WORTHINGTON | PARK [...] | + + + + + | [facility] | [address] | [place] [address] | | | SERVICES, CORE | VILMA [...] | | | LABORATORY | | | AUSTRIAN | | | SERVICES, | | | [...] + + + + + | [facility] | [address] | [place] [address] | | | SERVICES, CORE | VILMA [...] 99 | 70 - 99 mg/dL | [facility] - | | | [...] [facility] | [address] | [place], [place] | | | GLORIA GENAO OF CARE | [address] | [address] | | | TESTS | | | [...] [facility] | [address] | [place], [place] | | | HILL, POINT OF CARE | [address] | [address] | | | TESTS | | | [...] DEPT OF | [address] | [place], [place] | | | CARDIOLOGY | [address] | [address] | | + + + + + [...] + + + | [facility] | [address] | [place], [place] | | | GLORIA GENAO OF [facility] | [address] | [address] | | | TESTS | | | [...] [facility] | [address] | [place] [address] | | | NATALEE WORTHINGTON | VILMA [...] + + + + + | [facility] | [address] | [place] [address] | | | SERVICES, NATALEE | [address]ILMA [...] | | | LABORATORY | | | AUSTRIAN | | | SERVICES, | | | [...] | + + + + + | [facility] | [address] | [place] [address] | | | SERVICES, CORE | VILMA [...] [facility] | [address] | [place], [place] | | | GLORIA GENAO OF [facility] | [address] | [address] | | | TESTS | | | [...] [facility] | [address] | [place], [place] | | | GLORIA GENAO OF CARE | [facility] | [address] | | | TESTS | | | [...] | 70 - 99 mg/dL | [facility] - | | | [...] [facility] | [address] | [place], [place] | | | [facility] POINT OF CARE | [address] | [address] | | | TESTS | | | [...] [facility]USH | [address] | [place], [place] | | | GLORIA GENAO OF [facility] | [address] | [address] | | | TESTS | | | [...] + + + + | QTC-HALIMA | 441 | ms | [facility] [...] + | [facility] | [address] | [place], [place] | | | CARDIOLOGY | [address] | [address] | | + + + + + [...] [facility] | [address] | [place] [address] | | | SERVICES, CORE | VILMA [...] | + + + + + | [facility] | [address] | [place] [address] | | | SERVICES, CORE | VILMA [...] | | | LABORATORY | | | AUSTRIAN | | | SERVICES, | | | [...] MDRD equation recommended by the | [facility] | | National Kidney [...] + + + + + | [facility] | [address] | [place] [address] | | | SERVICES, CORE | VILMA [...] | 70 - 99 mg/dL | [facility] - | | | [...] [facility] | [address] | [place], [place] | | | [facility] POINT OF CARE | [address] | [address] | | | TESTS | | | [...] [facility] | [address] | [place], [place] | | | GLORIA GENAO OF CARE | [address] | [address] | | | TESTS | | | [...] [facility] | [address] | [place], [place] | | | GLORIA GENAO OF CARE | [address] | [address] | | | TESTS | | | [...] [facility] | [address] | [place], [place] | | | [facility] POINT OF CARE | [address] | [address] | | | TESTS | | | [...] [facility] | [address] | [place], [place] | | | GLORIA GENAO OF [employer] | [address] | [address] | | | TESTS | | | [...] + + + + + | [facility] | [address] | [place] [address] | | | SERVICES, CORE | PARK [...] [facility] | [address] | [place] [address] | | | SERVICES, CORE | PARK [...] | | | LABORATORY | | | AUSTRIAN | | | SERVICES, | | | [...] | + + + + + | [facility] | [address] | [place] [address] | | | SERVICES, NATALEE | VILMA [...] PIYUSH | [address] | [place], [place] | | | GLORIA GENAO OF [employer] | [facility] | [address] | | | TESTS | | | [...] | 70 - 99 mg/dL | [facility] - | | | [...] PICKETT | [address] | [place], [place] | | | [facility] POINT OF CARE | [address] | [address] | | | TESTS | | | [...] | + + + + + | [facility] | [address] | [place] [address] | | | SERVICES, CORE | VILMA [...] by | | | | | | [employer],[address] | | | | | | Rogelio Pickard, [facility] [place] [place] | | | | | | [phone] | | | | | | [phone].[employer]. | | | | | | Gui [...] [facility] | [address] | [place], [place] | | | [facility] | | [address] | | + + + + + [...] [facility] | [address] | [place] [address] | | | SERVICES, CORE | PARK [...] LABORATORY | [address] | [place] [address] | | | SERVICES, CORE | VILMA [...] modified from | [facility] | | original supervisor tank cleaning's approved specifications. The performance | LABORATORY | | of the MILITARY POLICE OFFICER HIV Combo test, with or without confirmation, [...] | + + + + + | [facility] | [address] | [place] [address] | | | SERVICES, SPECIAL | PARK [...] [facility] | [address] | [place], [place] | | | GLORIA GENAO OF [employer] | [address] | [address] | | | TESTS | | | [...] [facility]USH | [address] | [place], [place] | | | GLORIA GENAO OF [facility] | [facility] | [address] | | | TESTS | | | [...] | + + + + + | [facility] | [address] | [place] [address] | | | SERVICES, CORE | VILMA [...] LABORATORY | [address] | [place] [address] | | | SERVICES, CORE | PARK [...] | | | LABORATORY | | | AUSTRIAN | | | SERVICES, | | | [...] the MDRD equation recommended by the | [facility] | | National Kidney Disease Education Program. [...] + + + + + | [facility] | [address] | [place] [address] | | | NATALEE WORTHINGTON | VILMA [...] 96 | 70 - 99 mg/dL | [facility] - | | | [...] + + + | [facility] | [address] | [place], [place] | | | GLORIA GENAO OF [facility] | [address] | [address] | | | TESTS | | | [...] [facility] | [address] | [place], [place] | | | [facility] POINT OF CARE | [address] | [address] | | | TESTS | | | [...] + + + + | QTC-SAURABHTT | 484 | ms | [facility] [...] DEPT OF | [address] | [place], [place] | | | CARDIOLOGY | [address] | [address] | | + + + + + [...] | + + + | EXAM: CT CHEST 1 [...] [facility] | [address] | [place], [place] | | | [facility] POINT OF CARE | [address] | [address] | | | TESTS | | | | + + + + + X-RAY PORTABLE CHEST 1 VIEW (10/02/2017 8:56 AM PDT) + + | Specimen | + + | | + + + + + | Narrative | Performed At | + + + | EXAM: CT CHEST 1 [...] + + + | [facility] | [address] | [place], [place] | | | GLORIA GENAO OF [facility] | [address] | [address] | | | TESTS | | | [...] [facility] | [address] | [place] [address] | | | NATALEE WORTHINGTON | VILMA [...] + + + + + | [facility] | [address] | [place] [address] | | | NATALEE WORTHINGTON | VILMA [...] | | | LABORATORY | | | AUSTRIAN | | | SERVICES, | | | [...] | + + + + + | [facility] | [address] | [place] [address] | | | SERVICES, CORE | VILMA [...] PIYUSH | [address] | [place], [place] | | | GLORIA GENAO OF [employer] | [address] | [address] | | | TESTS | | | [...] [facility] | [address] | [place], [place] | | | [facility]ICK [place] [facility] | [address] | [address] | | | TESTS | | | [...] MAR[facility] | [address] | [place], [place] | | | GLORIA GENAO OF CARE | [address] | [address] | | | TESTS | | | [...] Note | + + | Service Account, [employer] In Interface - 10/01/2017 11:34 AM PDT [...] + + + | [facility] | [address] | [place], [place] | | | GLORIA GENAO OF [employer] | [address] | [address] | | | TESTS | | | [...] [facility] | [address] | [place] [address] | | | NATALEE WORTHINGTON | VILMA [...] + + + + + | [facility] | [address] | [place] [address] | | | SERVICESNATALEE | [address] [...] | | | LABORATORY | | | AUSTRIAN | | | SERVICES, | | | [...] | + + + + + | [facility] | [address] | [place] [address] | | | SERVICES, CORE | PARK [...] RAPHAELAM | [address] | [place], [place] | | | GLORIA GENAO OF CARE | [address] | [address] | | | TESTS | | | [...] - RAPHAELAM | [address] | [place], [place] | | | GLORIA GENAO OF CARE | [address] | [address] | | | TESTS | | | [...] | + + + + + | SDDANIELLE GEET OF | [address] | [place], [place] | | | CARDIOLOGY | [address] | [address] | | + + + + + [...] Service Adal, Radiant Res In Interface - 09/30/2017 1:28 [...] MD 09/30/2017 1:27 PM | |Preliminary: Ajay Sotut MD | |Dictation initiated: Ajay Stout MD [...] PIYUSH | [address] | [place], [place] | | | GLORIA GENAO OF GM | [facility] | [address] | | | TESTS | | | [...] PIYUSH | [address] | [place], [place] | | | [facility] | [facility] | [address] | | | TESTS | | | [...] | + + + + + | [facility] | [address] | [place] [address] | | | SERVICES, CORE | [address] | | | + + + [...] [facility] | [address] | [place] [address] | | | SERVICES, CORE | PARK [...] | | | LABORATORY | | | AUSTRIAN | | | SERVICES, | | | [...] MDRD equation recommended by the | [facility] | | National Kidney [...] | + + + + + | [facility] | [address] | [place] [address] | | | ELIN, NATALEE | VIL[address] [...] | 70 - 99 mg/dL | [facility] - | | | [...] MARQUAM | [address] | [place], [place] | | | GLORIA GENAO OF GM | [address] | [address] | | | TESTS | | | [...] PICKETT | [address] | [place], [place] | | | [facility] | [address] | [address] | | | TESTS | | | [...] MARKHRISAM | [address] | [place] | | | [facility] | [address] | [address] | | | TESTS | | | [...] DEPT OF | [address] | [place], [place] | | | CARDIOLOGY | [address] | [address] | | + + + + + [...] MARQUAM | [address] | [place], [place] | | | GLORIA GENAO OF CARE | [address] | [address] | | | TESTS | | | [...] + + + + + | [facility] | [address] | [place] [address] | | | SERVICES, CORE | PARK [...] | | | LABORATORY | | | AUSTRIAN | | | SERVICES, | | | [...] + + + + + | [facility] | [address] | [place] [address] | | | SERVICES, CORE | VILMA [...] + + + + + | [facility] | [address] | [place] [address] | | | NATALEE WORTHINGTON | [address]ARK [...] RAPHAELAM | [address] | [place], [place] | | | GL[facility]IA GENAO OF CARE | [facility] | [address] | | | TESTS | | | [...] | 70 - 99 mg/dL | [facility] - | | | [...] PICKETT | [address] | [place], [place] | | | [facility]ARE | [address] | [address] | | | TESTS | | | [...] PIYUSH | [address] | [place], [place] | | | JOHN GENAO | [facility] | [address] | | | TESTS | | | [...] DEPT OF | [address] | [place], [place] | | | CARDIOLOGY | [address] | [address] | | + + + + + [...] PICKETT | [address] | [place], [place] | | | GLORIA GENAO OF GM | [address] | [address] | | | TESTS | | | [...] [facility] | [address] | [place] [address] | | | NATALEE WORTHINGTON | VILMA [...] + + + + + | [facility] | [address] | [place] [address] | | | NATALEE WORTHINGTON | PARK [...] | | | LABORATORY | | | AUSTRIAN | | | SERVICES, | | | [...] | + + + + + | [facility] | [address] | [place] [address] | | | SERVICES, CORE | VILMA [...] MARQUAM | [address] | [place], [place] | | | GLORIA GENAO OF GM | [address] | [address] | | | TESTS | | | [...] + | [facility] | [address] | [place], [place] | | | [facility] [place] [facility] | [address] | [address] | | | TESTS | | | [...] poorly cleared with dry swallows. Please see [facility] pathology report for full details | | [...] +---------+ + + CAPILLARY BLOOD GLUCOSE (NO CHG) POC (09/27/2017 12:50 PM PDT) + +---------+ [...] MARQUAM | [address] | [place], [place] | | | GLORIA GENAO OF CARE | [address] | [address] | | | TESTS | | | [...] (H) | 70 - 99 mg/dL | [facility] - | | | GLUCOSE, | | [...] - MARQUAM | [address] | [place], [place] | | | [facility] | [address] | [address] | | | TESTS | | | [...] + + + + + | [facility] | [address] | [place] [address] | | | NATALEE WORTHINGTON | VILMA [...] | + + + + + | [facility] | [address] | [place] [address] | | | SERVICES, CORE | PARK [...] | | | LABORATORY | | | AUSTRIAN | | | SERVICES, | | | [...] + + + + + | [facility] | [address] | [place] [address] | | | SERVICES, CORE | VILMA [...] | 70 - 99 mg/dL | [facility] - | | | [...] PICKETT | [address] | [place], [place] | | | GLORIA GENAO OF GM | [address] | [address] | | | TESTS | | | [...] MARQUAM | [address] | [place], [place] | | | [facility] | [address] | [address] | | | TESTS | | | [...] + + + + | [facility] | 466 | ms | [facility] DE[facility] [...] DEPT OF | [address] | [place], [place] | | | CARDIOLOGY | [address] | [address] | | + + + + + [...] PICKETT | [address] | [place], [place] | | | GLORIA GENAO OF GM | [facility] | [address] | | | TESTS | | | [...] RAPHAELAM | [address] | [place], [place] | | | GLORIA GENAO OF CARE | [facility] | [address] | | | TESTS | | | [...] | 70 - 99 mg/dL | [facility] - | | | [...] PIYUSH | [address] | [place], [place] | | | GLORIA GENAO OF [facility] | [address] | [address] | | | TESTS | | | [...] + + + + + | [facility] | [address] | [place] [address] | | | NATALEE WORTHINGTON | VILMA [...] | + + + + + | [facility] | [address] | [place] [address] | | | SERVICES, CORE | VILMA [...] | | | LABORATORY | | | AUSTRIAN | | | SERVICES, | | | [...] + + + + + | [facility] | [address] | [place] [address] | | | SERVICES, CORE | VILMA [...] | 70 - 99 mg/dL | [facility] - | | | [...] PICKETT | [address] | [place], [place] | | | [facility] | [address] | [address] | | | TESTS | | | [...] Service Adal, Radiant Res In Interface - 09/25/2017 12:32 [...] + + + + + | [facility] | [address] | [place] [address] | | | NATALEE WOTRHINGTON | [address] | | | + [...] | + + + + + | [facility] | [address] | [place] [address] | | | SERVICES, CORE | PARK [...] | | | LABORATORY | | | AUSTRIAN | | | SERVICES, | | | [...] | + + + + + | [facility] | [address] | [place] [address] | | | SERVICES, CORE | [address] | | | + + + + + 12 LEAD ECG (09/24/2017 9:28 PM PDT) + + + + + + | Component | Value | Ref Range | Performed | Pathologist | | | | | At | Signature | + + + + + + | VENTRICULAR | 74 | bpm | [facility] DE[facility] | | | RATE | | [...] DEPT OF | [address] | [place], [place] | | | CARDIOLOGY | [address] | [address] | | + + + + + [...] Service Account, Kostas Casper In Interface - 09/24/2017 4:09 PM PDT [...] + + + + + | [facility] | [address] | [place] [address] | | | NATALEE WORTHINGTON | PARK [...] | | | LABORATORY | | | AUSTRIAN | | | SERVICES, | | | [...] | + + + + + | [facility] | [address] | [place] [address] | | | SERVICES, CORE | PARK [...] [facility] | [address] | [place] [address] | | | NATALEE WORTHINGTON | VILMA [...] + + + + + | [facility] | [address] | [place] [address] | | | ELIN, NATALEE | PARK [...] 2.6 mg/dL | [facility] | | | LISA | | | [...] [facility] | [address] | [place] [address] | | | NATALEE WORTHINGTON | VILMA [...] | | | LABORATORY | | | AUSTRIAN | | | SERVICES, | | | [...] + + + + + | [facility] | [address] | [place] [address] | | | NATALEE WORTHINGTON | VILMA [...] PIYUSH | [address] | [place], [place] | | | [facility] | [facility] | [address] | | | TESTS | | | [...] | 70 - 99 mg/dL | [facility] - | | | [...] PICKETT | [address] | [place], [place] | | | GLORIA GENAO OF [facility] | [facility] | [address] | | | TESTS | | | [...] [facility] | [address] | [place] [address] | | | SERVICES, CORE | PARK [...] + | [facility] DE[facility] OF | [address] | [place], [place] | | | CARDIOLOGY | [address] | [address] | | + + + + + [...] | + + + + + | [facility] | [address] | [place] [address] | | | SERVICES, CORE | VILMA [...] [facility] | [address] | [place] [address] | | | SERVICES, CORE | PARK [...] | | | LABORATORY | | | AUSTRIAN | | | SERVICES, | | | [...] + + + + + | [facility] | [address] | [place] [address] | | | ELIN, NATALEE | VILMA [...] | 70 - 99 mg/dL | [facility] - | | | [...] + + + | [facility]T | [address] | [place], [place] | | | GLORIA GENAO OF [facility] | [address] | [address] | | | TESTS | | | [...] [facility] | [address] | [place] [address] | | | SERVICES, CORE | PARK [...] + + + + + | [facility] | [address] | [place] [address] | | | NATALEE WORTHINGTON | [address] [...] | | | LABORATORY | | | AUSTRIAN | | | SERVICES, | | | [...] the MDRD equation recommended by the | [facility] | | National Kidney Disease Education Program. [...] | + + + + + | [facility] | [address] | [place] [address] | | | SERVICES, CORE | VILMA [...] Note | + + | Service Account, [employer] In Interface - 09/20/2017 7:50 PM PDT [...] Note | + + | Service Account, EdPuzzle Res In Interface - 09/20/2017 6:25 PM [...] Note | + + | Service Account, [employer] In Interface - 09/20/2017 5:17 PM PDT [...] DEPT OF | [address] | [place], [place] | | | CARDIOLOGY | [address] | [address] | | + + + + + [...] | + + + + + | [facility] | [address] | [place] [address] | | | SERVICES, CORE | PARK [...] [facility] | [address] | [place] [address] | | | SERVICES, CORE | VILMA [...] | | | LABORATORY | | | AUSTRIAN | | | SERVICES, | | | [...] MDRD equation recommended by the | [facility] | | National Kidney [...] [facility] | [address] | [place] [address] | | | SERVICES, CORE | PARK [...] | + + + + + | [facility] | [address] | [place] [address] | | | SERVICES, CORE | VILMA [...] [facility] | [address] | [place] [address] | | | SERVICES, CORE | VILMA [...] | | | LABORATORY | | | AUSTRIAN | | | SERVICES, | | | [...] [facility] | [address] | [place] [address] | | | SERVICES, CORE | PARK [...] | + + + + + | [facility] | [address] | [place] [address] | | | SERVICES, CORE | PARK [...] [facility] | [address] | [place] [address] | | | SERVICES, CORE | PARK [...] | | | LABORATORY | | | AUSTRIAN | | | SERVICES, | | | [...] the MDRD equation recommended by the | [facility] | | National Kidney Disease Education Program. [...] | + + + + + | [facility] | [address] | [place] [address] | | | SERVICES, NATALEE | VILMA [...] Note | + + | Service Account, [employer] Liaison Res In Interface - 09/17/2017 11:53 AM [...] | + + + + + | [facility] | [address] | [place] [address] | | | NATALEE WORTHINGTON | VILMA [...] + + + + + | [facility] | [address] | [place] [address] | | | NATALEE WORTHINGTON | VILMA [...] | | | LABORATORY | | | AUSTRIAN | | | SERVICES, | | | [...] | + + + + + | [facility] | [address] | [place] [address] | | | SERVICES, CORE | [address] | | | + + + + + X-RAY PORTABLE CHEST PICC LINE CHECK (09/16/2017 1:11 PM PDT) + + | Specimen | + + | | + + + + + | Narrative | Performed At | + + + | EXAM: CT CHEST PICC [...] Note | + + | Service Account, [employer] In Interface - 09/16/2017 1:34 PM PDT [...] | + + + | EXAM: CT CHEST PICC [...] Note | + + | Service Account, EdPuzzle Res In Interface - 09/16/2017 11:41 AM [...] + + + + + | [facility] | [address] | [place] [address] | | | NATALEE WORTHINGTON | VILMA [...] + + + + + | [facility] | [address] | [place] [address] | | | NATALEE WORTHINGTON | PARK [...] | | | LABORATORY | | | AUSTRIAN | | | SERVICES, | | | [...] | + + + + + | [facility] | [address] | [place] [address] | | | SERVICES, CORE | [address] | | | + + + + + X-RAY PORTABLE CHEST 1 VIEW (09/15/2017 3:28 PM PDT) + + | Specimen | + + | | + + + + + | Narrative | Performed At | + + + | EXAM: CT CHEST 1 VIEW HISTORY: COMPARISON: None. | [...] | + + + | EXAM: CT CHEST PICC [...] Note Indications:TPN Procedure | | | location: Unit:13 Room: #12 Providers: Attending name: | | [...] | pause verifies correct patient, procedure, equipment, systems support officer | | | and site/side marked as [...] | area Basilic vein. Catheter lot number: [id number] with a length of 55 | | [...] [facility] | [address] | [place] [address] | | | NATALEE WORTHINGTON | PARK [...] | + + + + + | [facility] | [address] | [place] [address] | | | SERVICES, CORE | PARK [...] | | | LABORATORY | | | AUSTRIAN | | | SERVICES, | | | [...] | + + + + + | [facility] | [address] | [place] [address] | | | SERVICES, CORE | VILMA [...] [facility] | [address] | [place] [address] | | | SERVICES, CORE | PARK [...] | + + + + + | [facility] | [address] | [place] [address] | | | NATALEE WORTHINGTON | VILMA [...] | | | LABORATORY | | | AUSTRIAN | | | SERVICES, | | | [...] | + + + + + | [facility] | [address] | [place] [address] | | | SERVICES, CORE | VILMA [...] [facility] | [address] | [place] [address] | | | SERVICES, CORE | PARK [...] | + + + + + | [facility] | [address] | [place] [address] | | | NATALEE WORTHINGTON | [address]ILMA [...] | | | LABORATORY | | | AUSTRIAN | | | SERVICES, | | | [...] | + + + + + | [facility] | [address] | [place] [address] | | | SERVICES, CORE | VILMA [...] + + + + + | [facility] | [address] | [place] [address] | | | SERVICES, CORE | VILMA [...] [facility] | [address] | [place] [address] | | | SERVICES, CORE | PARK [...] | | | LABORATORY | | | AUSTRIAN | | | SERVICES, | | | [...] the MDRD equation recommended by the | [facility] | | National Kidney Disease Education Program. [...] + + + + + | [facility] | [address] | [place] [address] | | | SERVICES, CORE | VILMA [...] Note | + + | Service Account, EdPuzzle Res In Interface - 09/11/2017 6:22 PM [...] + + + + + | [facility] | [address] | [place] [address] | | | SERVICES, CORE | [address] | | | + + + + + MAGNESIUM, PLASMA (09/11/2017 7:12 AM PDT) + +---------+ + + + | Component | Value | Ref Range | Performed | Pathologist | | | | | At | Signature | + +---------+ + + + | MAGNESIUM,P | 2.7 (H) | 1.6 - 2.6 mg/dL | [facility] | | | LASMA | | | [...] [facility] | [address] | [place] [address] | | | SERVICES, NATALEE | VILMA [...] | | | LABORATORY | | | AUSTRIAN | | | SERVICES, | | | [...] | + + + + + | [facility] | [address] | [place] [address] | | | SERVICES, CORE | VILMA [...] | + + + + + | [facility] | [address] | [place] [address] | | | SERVICES, CORE | VILMA [...] Note | + + | Service Account, EdPuzzle Res In Interface - 09/10/2017 2:08 PM [...] [facility] | | | | | [facility] US | | | | + +---------+ + + X-RAY PORTABLE CHEST 1 VIEW (09/10/2017 7:16 AM PDT) + + | Specimen | + + | | + + + + + | Narrative | Performed At | + + + | STUDY: CT CHEST 1 [...] [facility] | [address] | [place] [address] | | | SERVICES, CORE | PARK [...] [facility] | [address] | [place] [address] | | | SERVICES, CORE | PARK [...] | + + + + + | [facility] | [address] | [place] [address] | | | SERVICES, CORE | VILMA [...] | + + + + + | [facility] | [address] | [place] [address] | | | SERVICES, CORE | PARK [...] | | | LABORATORY | | | AUSTRIAN | | | SERVICES, | | | [...] the MDRD equation recommended by the | [facility] | | National Kidney Disease Education Program. [...] [facility] | [address] | [place] [address] | | | SERVICES, CORE | PARK [...] DEPT OF | [address] | [place], [place] | | | CARDIOLOGY | [address] | [address] | | + + + + + [...] Note | + + | Service Account, EdPuzzle Res In Interface - 09/10/2017 11:11 AM [...] - [facility] | [address] | [place], [place] | | | GLORIA GENAO OF [facility] | [facility] | [address] | | | TESTS | | | [...] [facility] | [address] | [place] [address] | | | SERVICES, NATALEE | VILMA [...] [facility] | [address] | [place] [address] | | | SERVICES, CORE | PARK [...] | | | LABORATORY | | | AUSTRIAN | | | SERVICES, | | | [...] [facility] | [address] | [place] [address] | | | SERVICES, CORE | PARK [...] | + + + + + | [facility] | [address] | [place] [address] | | | SERVICES, CORE | VILMA [...] | | | LABORATORY | | | AUSTRIAN | | | SERVICES, | | | [...] MDRD equation recommended by the | [facility] | | National Kidney [...] LABORATORY | [address] | [place] [address] | | | SERVICES, CORE | PARK [...] | + + + + + | [facility] | [address] | [place] [address] | | | SERVICES, CORE | PARK [...] [facility] | [address] | [place] [address] | | | SERVICES, CORE | [address] | | | + + + + + X-RAY ABD LTD FEEDING TUBE EVAL (09/08/2017 4:38 AM PDT) + + | Specimen | + + | | + + + + + | Narrative | Performed At | + + + | EXAM: ABD LTD FEEDING TUBE EVAL 09/08/17 04:04:50 COMPARISON: | [facility] | | 09/06/17 FINDINGS: Feeding tube has [...] + + | [facility] DEPT OF | [address] | [place], [place] | | | CARDIOLOGY | [address] | [address] | | + + + + + X-RAY PORTABLE CHEST 1 VIEW (09/07/2017 6:12 AM PDT) + + | Specimen | + + | | + + + + + | Narrative | Performed At | + + + | EXAM: CT CHEST 1 [...] Note | + + | Service Account, EdPuzzle Res In Interface - 09/07/2017 10:46 AM [...] [facility] | [address] | [place] [address] | | | NATALEE WORTHINGTON | VILMA [...] | | | LABORATORY | | | AUSTRIAN | | | SERVICES, | | | [...] | + + + + + | [facility] | [address] | [place] [address] | | | ELIN, NATALEE | VILMA [...] | + + + + + | [facility] | [address] | [place] [address] | | | SERVICES, CORE | VILMA [...] Note | + + | Service Account, EdPuzzle Res In Interface - 09/07/2017 10:46 AM [...] + + + + | LAUREN | 537 | ms | [facility] [...] | + + + + + | [facility] | [address] | [place], [place] | | | CARDIOLOGY | [address] | [address] | | + + + + + [...] | | | attempt. Midline lot number [id number]; there was positive blood | | | [...] | | | LABORATORY | | | AUSTRIAN | | | SERVICES, | | | [...] [facility] | [address] | [place] [address] | | | SERVICES, CORE | PARK [...] + + + + + | [facility] | [address] | [place] [address] | | | SERVICES, CORE | [address] | | | + + + + + X-RAY PORTABLE CHEST 1 VIEW (09/05/2017 5:33 AM PDT) + + | Specimen | + + | | + + + + + | Narrative | Performed At | + + + | EXAM: CT CHEST 1 [...] + + + + + | [facility] | [address] | [place] [address] | | | SERVICES, CORE | PARK [...] | + + + + + | [facility] | [address] | [place] [address] | | | SERVICES, NATALEE | [address]IL[address] [...] | | | LABORATORY | | | AUSTRIAN | | | SERVICES, | | | [...] | + + + + + | [facility] | [address] | [place] [address] | | | SERVICES, CORE | PARK [...] | | | LABORATORY | | | AUSTRIAN | | | SERVICES, | | | [...] the MDRD equation recommended by the | [facility] | | National Kidney Disease Education Program. [...] | + + + + + | [facility] | [address] | [place] [address] | | | [facility] | [address] | | | + [...] tomorrow morning. CB Henson Pager / ID: [phone] | | + + + CULTURE, SPUTUM [...] + | [facility] - | [address] | [place] [address] | | | [place] | | | [...] [facility] | [address] | [place] [address] | | | SERVICES, CORE | [address] | | | + + + + + UA, GONSALOSTICK ONLY (09/04/2017 1:17 PM PDT) + + [...] | [facility] | | | GRAVITY | [place] performed by | | LABORATORY | | [...] [facility] | [address] | [place] [address] | | | SERVICES, NATALEE | PARK [...] + + + + + | [facility] | [address] | [place] [address] | | | SERVICES, CORE | [address] [...] [facility] | [address] | [place] [address] | | | SERVICES, CORE | PARK [...] + + + + | [facility]HAL[facility] | 474 | ms | [facility] DE[facility] [...] + | [facility] | [address] | [place], [place] | | | CARDIOLOGY | [address] | [address] | | + + + + + X-RAY PORTABLE CHEST 1 VIEW (09/04/2017 7:04 AM PDT) + + | Specimen | + + | | + + + + + | Narrative | Performed At | + + + | EXAM: CT CHEST 1 VIEW HISTORY: Hypoxia. Intubated. | [...] | + + + + + | [facility] | [address] | [place] [address] | | | SERVICES, NATALEE | [address] [...] | + + + + + | [facility] | [address] | [place] [address] | | | SERVICES, CORE | [address] [...] | | | LABORATORY | | | AUSTRIAN | | | SERVICES, | | | [...] + + + + + | [facility] | [address] | [place] [address] | | | SERVICES, CORE | PARK [...] [facility] | [address] | [place] [address] | | | NATALEE WORTHINGTON | VILMA [...] | 70 - 99 mg/dL | [facility] - | | | [...] [facility] | [address] | [place], [place] | | | GLORIA GENAO OF CARE | [address] | [address] | | | TESTS | | | [...] [facility] | [address] | [place], [place] | | | [facility] | [address] | [address] | | | TESTS | | | [...] [facility] | [address] | [place], [place] | | | GLORIA GENAO OF CARE | [facility] | [address] | | | TESTS | | | [...] [facility] | [address] | [place], [place] | | | GLORIA GENAO OF GM | [address] | [address] | | | TESTS | | | [...] Account, Kostas Casper In Interface - 09/03/2017 10:27 AM PDT [...] detected | [facility] - | | | [place] | + + + + + + + + | Performing | Address | City/State/Zipcode | Phone Number | | Organization | | | | + + + + + | [facility] | [address] | [place] [address] | | | [place] | | | [...] | + + + + + | [facility] | [address] | [place] [address] | | | SERVICES, CORE | VILMA [...] Note | + + | Service Account, [employer] In Interface - 09/03/2017 9:54 AM PDT [...] + | [facility] | [address] | [place] [address] | | | [place] | | | | + + + [...] | + + + + + | [facility] | [address] | [place] [address] | | | SERVICES, CORE | PARK [...] | + + + + + | [facility] | [address] | [place] [address] | | | SERVICES, NATALEE | VILMA [...] | | | LABORATORY | | | [facility] | | | SERVICES, | | | [...] | + + + + + | [facility] | [address] | [place] [address] | | | SERVICES, CORE | PARK [...] | + + + + + | [facility] | [address] | [place] [address] | | | NATALEE WORTHINGTON | [address] | | | + + + + + OPERATION RECORD (09/02/2017 6:53 PM PDT) + + | Procedure Note | + + | Fidelina Shields MD - 09/02/2017 6:53 PM PDT Date of Service: 09/02/2017 | | Attending Surgeon: Fidelina Shields MD Chef(s): | | Ajay Butts MD, resident. Preoperative [...] 09/02/2017 18:15:29DT: 09/02/2017 18:53:52Job #: | | [id number] to federal Medicare and Medicaid regulations I was present for | | the entire procedure.Fidelina Shields MDAssistanbrice ProfessorDepartment of SurgeryOffice: | [phone]: [id number] has been electronically signed by Fidelina Shields MD, | | 09/03/2017 at 9:11 AM. | | | | | |Fidelnia Shields MD | |Reed Man | |Department of Surgery | |Office: [phone] | |Pager: [phone] | | | |This has been electronically [...] | + + + + + | [facility] | [address] | [place] [address] | | | SERVICES, CORE | VILMA [...] [facility] | [address] | [place] [address] | | | SERVICES, CORE | VILMA [...] detected | [facility] - | | | [place] | + + + + + + + + | Performing | Address | City/State/Zipcode | Phone Number | | Organization | | | | + + + + + | [facility] | [address] | [place] [address] | | | [facility] | | | | + + + [...] [facility] | [address] | [place] [address] | | | SERVICES, CORE | PARK [...] | | | LABORATORY | | | AUSTRIAN | | | SERVICES, | | | [...] the MDRD equation recommended by the | [facility] | | National Kidney Disease Education Program. [...] + + + + + | [facility] | [address] | [place] [address] | | | NATALEE WORTHINGTON | [address] [...] Note | + + | Service Account, [employer] - 09/02/2017 4:25 PM PDT [...] Bedrest Initial surgical | | | contact: [facility] Vicente Butts, Surgery [id number] Pursuant | | | to federal Medicare and Medicaid regulations I was present for the | | | entire procedure. Fidelina Shields MD [facility] | | | Department of Surgery Office: [phone] Pager: [phone] This has | | | been electronically [...] [facility] | [address] | [place] [address] | | | SERVICES, CORE | PARK [...] | + + + + + | [facility] | [address] | [place] [address] | | | SERVICES, CORE | [address] | | | + + + + + OPERATION RECORD (09/02/2017 6:51 AM PDT) + ---+ | Procedure Note | + ---+ | Fidelina Shields MD - 09/02/2017 6:51 AM PDT Date of Service: 09/01/2017 | | Attending Surgeon: Fidelina Shields MD Chef(s): Haim Peralta MD. | | Ajay Butts [...] the completion of the angiography.Ajay | | Prasanth Casarezie R Cook, MDTBK/MODLDD: 09/02/2017 06:17:53DT: 09/02/2017 | | 06:51:37Job #: [id number] to federal Medicare and Medicaid regulations I | | was present for the entire procedure.Fidelina Tenorio ProfessorDepartment of | | SurgeryOffice: [phone]: [id number] has been electronically signed by Fidelina Whitman | | MD Cornelius, 09/02/2017 at 10:40 AM. | | | | | |Pursuant to federal Medicare and Medicaid regulations I was present for the entire procedur e. | | | | | | | |Fidelina Shields MD | |[facility] | |Department of Surgery | |Office: [phone] | |Pager: [phone] | | | |This has been electronically [...] | + + + + + | [facility] | [address] | [place] [address] | | | SERVICES, CORE | VILMA [...] [facility] | [address] | [place] [address] | | | SERVICES, CORE | PARK [...] + + + + | PRODUCT | [id number] | | [facility] | | | UNIT [...] + + + + | EXPIRATION | [id number] | | [facility] | | | DATE [...] + + + + | BLOOD | [id number] | | [facility] | | | PRODUCT [...] [facility] | [address] | [place] [address] | | | SERVICES, | [address] [...] Note | + + | Service Account, [employer] Liaison Res In Interface - 09/02/2017 11:22 AM [...] | + + + + + | [facility] | [address] | [place] [address] | | | NATALEE WORTHINGTON | VILMA [...] | | | LABORATORY | | | AUSTRIAN | | | SERVICES, | | | [...] | + + + + + | [facility] | [address] | [place] [address] | | | SERVICES, CORE | PARK [...] | + + + + + | [facility] | [address] | [place] [address] | | | SERVICES, CORE | VILMA [...] (http://www.cdc.gov/mmwr | | | | | | [email or web address] | | | | | | [email or web address]), [...] [facility] - | | | | by [employer], | | AIRPORT - | | | | | | [place] | | | | [facility] | | | | | | [facility]elio [facility] [place] | | | | | | [id number] | | | | | | | | | | | | www.[employer], Gui | | | | | | [...] + | [facility] - AIRPORT - | [address] | [place] [address] | | | [place] | | | | + + + [...] | + + + + + | [facility] | [address] | [place] [address] | | | SERVICES, CORE | VILMA [...] [facility] | [address] | [place] [address] | | | SERVICES, CORE | PARK [...] | + + + | EXAM: CT CHEST 1 [...] [facility] | [address] | [place] [address] | | | SERVICES, CORE | PARK [...] | + + + + + | [facility] | [address] | [place] [address] | | | SERVICES, CORE | VILMA [...] + + + + | PRODUCT | [id number] | | [facility] | | | UNIT [...] + + + + | EXPIRATION | [id number] | | [facility] | | | DATE [...] + + + + | BLOOD | [id number] | | [facility] | | | PRODUCT [...] | + + + + + | [facility] | [address] | [place] [address] | | | SERVICES, | [address] [...] [facility] | [address] | [place] [address] | | | SERVICES, CORE | PARK [...] [facility] | [address] | [place] [address] | | | SERVICES, CORE | PARK [...] [facility] | [address] | [place] [address] | | | SERVICES, CORE | PARK [...] | | | LABORATORY | | | AUSTRIAN | | | SERVICES, | | | [...] | + + + + + | [facility] | [address] | [place] [address] | | | NATALEE WORTHINGTON | [address] [...] [facility] | [address] | [place] [address] | | | ELIN, CORE | PARK [...] [facility] | [address] | [place] [address] | | | NATALEE WORTHINGTON | [address] [...] micropuncture access set was exchanged for a [employer] wire. Under | | | fluoroscopic guidance, a 5 Fr flush catheter was used to evaluate the | | | distal abdominal aorta and pelvic vasculature. A wire and catheter | | | were then used to select the left common and internal iliac arteries | | | from the right METAL WINDOW FRAME MAKER approach. DSA was performed from the left [...] micropuncture access set was exchanged for a [employer] wire. Under fluoroscopic guidance, | | a 5 Fr flush catheter was used to evaluate the distal abdominal aorta and pelvic | | vasculature. A wire and catheter were then used to select the left common and internal | | iliac arteries from the right METAL WINDOW FRAME MAKER approach. DSA was performed from the left [...] micropuncture access set was exchanged for a [employer] wire. Under fluoroscopic guidance, a 5 Fr flush catheter was used | |to evaluate the distal abdominal aorta and pelvic vasculature. A wire and catheter were th en used to select the left common and internal iliac arteries from the right METAL WINDOW FRAME MAKER approach. DSA was performed from the left [...] + | [facility] | [address] | [place], [place] | | | [facility] | [address] | [address] | | | TESTS | | | | + + + + + EXPLORATORY LAPAROTOMY (09/01/2017 12:31 PM PDT) + + + | Narrative | Performed At | + + + | Fidelina Shields MD 09/01/2017 12:42 PM BRIEF OPERATIVE NOTE: | | | Date: 09/01/2017 Author: Fidelina Shields MD | | | Attending Physician: Fidelina Shields MD Chef(s): Haim Peralta | | | , Vicente Butts MD, [facility] center[facility] MS3 Prior to the | | | [...] case. | | | Fidelina Shields MD [facility] Division of Trauma, | | | Critical Care and Acute Care Surgery Office: [phone] Pager: [phone] | + + + ABG-FULL ABL, [...] [facility] | [address] | [place], [place] | | | [facility] | [address] | [address] | | | TESTS | | | [...] [facility] | [address] | [place] [address] | | | NATALEE WORTHINGTON | [address] [...] [facility] | [address] | [place], [place] | | | [facility] | [address] | [address] | | | TESTS | | | [...] + + + + | PRODUCT | [id number] | | [facility] | | | UNIT [...] + + + + | EXPIRATION | [id number] | | [facility] | | | DATE [...] + + + + | BLOOD | [id number] | | [facility] | | | PRODUCT [...] + + + + + | [facility] | [address] | [place] [address] | | | SERVICES, | [address] [...] + + + + | PRODUCT | [id number] | | [facility] | | | UNIT [...] + + + + | EXPIRATION | [id number] | | [facility] | | | DATE [...] + + + + | BLOOD | [id number] | | [facility] | | | PRODUCT [...] | + + + + + | [facility] | [address] | [place] [address] | | | SERVICES, | [address] [...] + + + + | PRODUCT | [id number] | | [facility] | | | UNIT [...] + + + + | EXPIRATION | [id number] | | [facility] | | | DATE [...] + + + + | BLOOD | [id number] | | [facility] | | | PRODUCT [...] | + + + + + | [facility] | [address] | [place] [address] | | | SERVICES, | [address] [...] + + + + | PRODUCT | [id number] | | [facility] | | | UNIT [...] + + + + | EXPIRATION | [id number] | | [facility] | | | DATE [...] + + + + | BLOOD | [id number] | | [facility] | | | PRODUCT [...] [facility] | [address] | [place] [address] | | | SERVICES, | [address] [...] + + + + | PRODUCT | [id number] | | [facility] | | | UNIT [...] + + + + | EXPIRATION | [id number] | | [facility] | | | DATE [...] + + + + | BLOOD | [id number] | | [facility] | | | PRODUCT [...] [facility] | [address] | [place] [address] | | | SERVICES, | [address] [...] + + + + | PRODUCT | [id number] | | [facility] | | | UNIT [...] + + + + | EXPIRATION | [id number] | | [facility] | | | DATE [...] + + + + | BLOOD | [id number] | | [facility] | | | PRODUCT [...] + + | [facility] | [address] | [place] [address] | | | SERVICES, | [address] [...] + + + + | PRODUCT | [id number] | | [facility] | | | UNIT [...] + + + + | EXPIRATION | [id number] | | [facility] | | | DATE [...] + + + + | BLOOD | [id number] | | [facility] | | | PRODUCT [...] [facility] | [address] | [place] [address] | | | SERVICES, | [address] [...] + + + + | PRODUCT | [id number] | | [facility] | | | UNIT [...] + + + + | EXPIRATION | [id number] | | [facility] | | | DATE [...] + + + + | BLOOD | [id number] | | [facility] | | | PRODUCT [...] LABORATORY | [address] | [place] [address] | | | SERVICES, | [address] [...] + + + + | PRODUCT | [id number] | | [facility] | | | UNIT [...] + + + + | EXPIRATION | [id number] | | [facility] | | | DATE [...] + + + + | BLOOD | [id number] | | [facility] | | | PRODUCT [...] [facility] | [address] | [place] [address] | | | SERVICES, | [address] [...] + + + + | PRODUCT | [id number] | | [facility] | | | UNIT [...] + + + + | EXPIRATION | [id number] | | [facility] | | | DATE [...] + + + + | BLOOD | [id number] | | [facility] | | | PRODUCT [...] | + + + + + | [facility] | [address] | [place] [address] | | | SERVICES, | [address] [...] + + + + | PRODUCT | [id number] | | [facility] | | | UNIT [...] + + + + | EXPIRATION | [id number] | | [facility] | | | DATE [...] + + + + | BLOOD | [id number] | | [facility] | | | PRODUCT [...] | + + + + + | [facility] | [address] | [place] [address] | | | SERVICES, | [address] [...] + + + + | PRODUCT | [id number] | | [facility] | | | UNIT [...] + + + + | EXPIRATION | [id number] | | [facility] | | | DATE [...] + + + + | BLOOD | [id number] | | [facility] | | | PRODUCT [...] | + + + + + | [facility] | [address] | [place] [address] | | | SERVICES, | [address] [...] + + + + | PRODUCT | [id number] | | [facility] | | | UNIT [...] + + + + | EXPIRATION | [id number] | | [facility] | | | DATE [...] + + + + | BLOOD | [id number] | | [facility] | | | PRODUCT [...] + + + + + | [facility] | [address] | [place] [address] | | | SERVICES, | [address] [...] + + + + | PRODUCT | [id number] | | [facility] | | | UNIT [...] + + + + | EXPIRATION | [id number] | | [facility] | | | DATE [...] + + + + | BLOOD | [id number] | | [facility] | | | PRODUCT [...] [facility] | [address] | [place] [address] | | | SERVICES, | [address] [...] + + + + | PRODUCT | [id number] | | [facility] | | | UNIT [...] + + + + | EXPIRATION | [id number] | | [facility] | | | DATE [...] + + + + | BLOOD | [id number] | | [facility] | | | PRODUCT [...] [facility] | [address] | [place] [address] | | | SERVICES, | [address] [...] + + + + | PRODUCT | [id number] | | [facility] | | | UNIT [...] + + + + | EXPIRATION | [id number] | | [facility] | | | DATE [...] + + + + | BLOOD | [id number] | | [facility] | | | PRODUCT [...] [facility] | [address] | [place] [address] | | | SERVICES, | [address] [...] + + + + | PRODUCT | [id number] | | [facility] | | | UNIT [...] + + + + | EXPIRATION | [id number] | | [facility] | | | DATE [...] + + + + | BLOOD | [id number] | | [facility] | | | PRODUCT [...] [facility] | [address] | [place] [address] | | | SERVICES, | [address] [...] + + + + | PRODUCT | [id number] | | [facility] | | | UNIT [...] + + + + | EXPIRATION | [id number] | | [facility] | | | DATE [...] + + + + | BLOOD | [id number] | | [facility] | | | PRODUCT [...] [facility] | [address] | [place] [address] | | | SERVICES, | [address] [...] + + + + | PRODUCT | [id number] | | [facility] | | | UNIT [...] + + + + | EXPIRATION | [id number] | | [facility] | | | DATE [...] + + + + | BLOOD | [id number] | | [facility] | | | PRODUCT [...] [facility] | [address] | [place] [address] | | | SERVICES, | [address] [...] + + + + | PRODUCT | [id number] | | [facility] | | | UNIT [...] + + + + | EXPIRATION | [id number] | | [facility] | | | DATE [...] + + + + | BLOOD | [id number] | | [facility] | | | PRODUCT [...] LABORATORY | [address] | [place] [address] | | | SERVICES, | [address] [...] + + + + | PRODUCT | [id number] | | [facility] | | | UNIT [...] + + + + | EXPIRATION | [id number] | | [facility] | | | DATE [...] + + + + | BLOOD | [id number] | | [facility] | | | PRODUCT [...] | + + + + + | [facility] | [address] | [place] [address] | | | SERVICES, | [address] [...] + + + + | PRODUCT | [id number] | | [facility] | | | UNIT [...] + + + + | EXPIRATION | [id number] | | [facility] | | | DATE [...] + + + + | BLOOD | [id number] | | [facility] | | | PRODUCT [...] | + + + + + | [facility] | [address] | [place] [address] | | | SERVICES, | [address] [...] + + + + | PRODUCT | [id number] | | [facility] | | | UNIT [...] + + + + | EXPIRATION | [id number] | | [facility] | | | DATE [...] + + + + | BLOOD | [id number] | | [facility] | | | PRODUCT [...] | + + + + + | [facility] | [address] | [place] [address] | | | SERVICES, | [address] [...] + + + + | PRODUCT | [id number] | | [facility] | | | UNIT [...] + + + + | EXPIRATION | [id number] | | [facility] | | | DATE [...] + + + + | BLOOD | [id number] | | [facility] | | | PRODUCT [...] | + + + + + | [facility] | [address] | [place] [address] | | | SERVICES, | [address] [...] + + + + | PRODUCT | [id number] | | [facility] | | | UNIT [...] + + + + | EXPIRATION | [id number] | | [facility] | | | DATE [...] + + + + | BLOOD | [id number] | | [facility] | | | PRODUCT [...] [facility] | [address] | [place] [address] | | | SERVICES, | [address] [...] + + + + | PRODUCT | [id number] | | [facility] | | | UNIT [...] + + + + | EXPIRATION | [id number] | | [facility] | | | DATE [...] + + + + | BLOOD | [id number] | | [facility] | | | PRODUCT [...] [facility] | [address] | [place] [address] | | | SERVICES, | [address] [...] | + + + + + | [facility] | [address] | [place] [address] | | | SERVICES, CORE | PARK [...] | | | LABORATORY | | | AUSTRIAN | | | SERVICES, | | | [...] | + + + + + | [facility] | [address] | [place] [address] | | | SERVICES, CORE | PARK [...] | + + + + + | [facility] | [address] | [place] [address] | | | SERVICES, CORE | [address] | | | + + + + + -CITLALY SCHAFFER RT (09/01/2017 9:19 AM PDT) + [...] - [facility] | [address] | [place], [place] | | | [facility] | [address] | [address] | | | TESTS | | | | + + + + + X-RAY PORTABLE CHEST 1 VIEW (09/01/2017 9:18 AM PDT) + + | Specimen | + + | | + + + + + | Narrative | Performed At | + + + | EXAM: CT CHEST 1 [...] Note | + + | 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, [employer] - 09/01/2017 1:40 PM PDT [...] + + + + | PRODUCT | [id number] | | [facility] | | | UNIT [...] + + + + | EXPIRATION | [id number] | | [facility] | | | DATE [...] + + + + | BLOOD | [id number] | | [facility] | | | PRODUCT [...] [facility] | [address] | [place] [address] | | | SERVICES, | [address] [...] + + + + | PRODUCT | [id number] | | [facility] | | | UNIT [...] + + + + | EXPIRATION | [id number] | | [facility] | | | DATE [...] + + + + | BLOOD | [id number] | | [facility] | | | PRODUCT [...] [facility] | [address] | [place] [address] | | | SERVICES, | [address] [...] + + + + | PRODUCT | [id number] | | [facility] | | | UNIT [...] + + + + | EXPIRATION | [id number] | | [facility] | | | DATE [...] + + + + | BLOOD | [id number] | | [facility] | | | PRODUCT [...] [facility] | [address] | [place] [address] | | | SERVICES, | [address] [...] + + + + | PRODUCT | [id number] | | [facility] | | | UNIT [...] + + + + | EXPIRATION | [id number] | | [facility] | | | DATE [...] + + + + | BLOOD | [id number] | | [facility] | | | PRODUCT [...] [facility] | [address] | [place] [address] | | | SERVICES, | [address] [...] + + + + | PRODUCT | [id number] | | [facility] | | | UNIT [...] + + + + | EXPIRATION | [id number] | | [facility] | | | DATE [...] + + + + | BLOOD | [id number] | | [facility] | | | PRODUCT [...] [facility] | [address] | [place] [address] | | | SERVICES, | [address] [...] + + + + | PRODUCT | [id number] | | [facility] | | | UNIT [...] + + + + | EXPIRATION | [id number] | | [facility] | | | DATE [...] + + + + | BLOOD | [id number] | | [facility] | | | PRODUCT [...] [facility] | [address] | [place] [address] | | | SERVICES, | [address] [...] + + + + | PRODUCT | [id number] | | [facility] | | | UNIT [...] + + + + | EXPIRATION | [id number] | | [facility] | | | DATE [...] + + + + | BLOOD | [id number] | | [facility] | | | PRODUCT [...] LABORATORY | [address] | [place] [address] | | | SERVICES, | [address] [...] + + + + | PRODUCT | [id number] | | [facility] | | | UNIT [...] + + + + | EXPIRATION | [id number] | | [facility] | | | DATE [...] + + + + | BLOOD | [id number] | | [facility] | | | PRODUCT [...] | + + + + + | [facility] | [address] | [place] [address] | | | SERVICES, | [address] [...] + + + + | PRODUCT | [id number] | | [facility] | | | UNIT [...] + + + + | EXPIRATION | [id number] | | [facility] | | | DATE [...] + + + + | BLOOD | [id number] | | [facility] | | | PRODUCT [...] [facility] | [address] | [place] [address] | | | SERVICES, | [address] [...] + + + + + | [facility] | [address] | [place] [address] | | | NATALEE WORTHINGTON | [address] [...] [facility] | [address] | [place] [address] | | | SERVICES, CORE | [address] | | | + + + + + MRI SPINE CERVICAL/THORACIC WO CONTRAST (09/01/2017 3:53 AM PDT) + + | Specimen | + + | | + + + + + | Narrative | Performed At | + + + | EXAM: MRI cervical and thoracic spine without contrast HISTORY: | [facility] | | Trauma, known vertebral fractures. COMPARISON: [...] Discussed with | | | trauma ICU programming intern by Dr. Yang at 4:38 AM. [...] interspinous ligament is injured.Discussed with trauma ICU programming intern | | by Dr. Yang at 4:38 AM.I have personally reviewed the images and, if necessary, | | edited the report. I agree with the report as now presented. | |3. Extensive soft tissue edema extending into the cervical and upper thoracic interspinous space, suggestive of interspinous ligament is injured. | | | |Discussed with trauma ICU programming intern by Dr. Yang at 4:38 AM. [...] | | | LABORATORY | | | AUSTRIAN | | | SERVICES, | | | [...] + + + + + | [facility] | [address] | [place] [address] | | | SERVICES, CORE | [address] [...] + + + + + | [facility] | [address] | [place] [address] | | | SERVICES, CORE | PARK [...] [facility] | [address] | [place] [address] | | | SERVICES, CORE | [address] [...] | + + + + + | [facility] | [address] | [place] [address] | | | SERVICES, CORE | [address] [...] pleural spaced was performed. A 32 size Ivorian chest tube was | | | placed [...] | ventricles. Discussed with the trauma ICU programming intern at 12:12 AM by | | [...] ventricles.Discussed with | | the trauma ICU programming intern at 12:[address] Yang.I [...] | | |Discussed with the trauma ICU programming intern at 12:[address] Yang. [...] [facility] | [address] | [place], [place] | | | [facility] | [facility] | [address] | | | TESTS | | | [...] [facility] | [address] | [place] [address] | | | SERVICES, CORE | PARK [...] + + + + + | [facility] | [address] | [place] [address] | | | SERVICES, CORE | [address] [...] | + +---------+ + + | [facility] | | | [...] Note | + + | Service Account, [employer] Interface - 09/01/2017 1:40 PM PDT EXAM: FEMUR 2 | | VIEWS LEFT; PELVIS 1 VIEW 05/06/18 HISTORY: TraumaCOMPARISON: CT CAP of the same [...] + + + + + | [facility] | [address] | [place] [address] | | | [facility] | [address] | | | + + + + + X-RAY PORTABLE CHEST 1 VIEW (08/31/2017 7:07 PM PDT) + + | Specimen | + + | | + + + + + | Narrative | Performed At | + + + | STUDY: CT CHEST 1 VIEW HISTORY: Trauma COMPARISON: CT CAP | [facility] | | 08/31/2017 FINDINGS: Endotracheal [...] | + + + + + | [facility] | [address] | [place] [address] | | | SERVICES, CORE | PARK [...] Note | + + | Service Account, [employer] - 08/31/2017 8:22 PM PDT [...] Note | + + | Service Account, [employer] In Interface - 09/01/2017 10:12 AM [...] rib, nondisplaced-Left | | 1st rib fracture, kunchpamkbrd-Twf-cjwhuthnt left lateral 8th rib fracture-T12 fracture | [...] [facility] | [address] | [place] [address] | | | SERVICES, | [address] [...] [facility] | [address] | [place] [address] | | | SERVICES, | [address] [...] [facility] | [address] | [place] [address] | | | SERVICES, | [address] [...] Depressed MA corresponds to decreased | [facility] GENAO, | | clot strength suggesting HYPOcoagulability. [...] [facility] | [address] | [place], [place] | | | [facility] | [address] | [address] | | | TESTS | | | [...] + + + | [facility] | [address] | [place], [place] | | | [facility] | [address] | [address] | | | TESTS | | | [...] | | | POC | | | MARKHRISAM | | | [...] - | | | | | | [facility] | | | [...] [facility] | [address] | [place], [place] | | | [facility] | [address] | [address] | | | TESTS | | | | + + + + + ED BG-OLIVIAPOC (08/31/2017 5:21 PM PDT) + + + [...] | | | TEMP | | | MARKHRISAM | | | [...] | [facility] | [address] | [place], [place] | | | [facility] | [address] | [address] | | | TESTS | | | [...] + + + + | PRODUCT | [id number] | | [facility] | | | UNIT [...] + + + + | EXPIRATION | [id number] | | [facility] | | | DATE [...] + + + + | BLOOD | [id number] | | [facility] | | | PRODUCT [...] [facility] | [address] | [place] [address] | | | SERVICES, | [address] [...] + + + + | PRODUCT | [id number] | | [facility] | | | UNIT [...] + + + + | EXPIRATION | [id number] | | [facility] | | | DATE [...] + + + + | BLOOD | [id number] | | [facility] | | | PRODUCT [...] + + + + + | [facility] | [address] | [place] [address] | | | SERVICES, | [address] [...] + + + + | PRODUCT | [id number] | | [facility] | | | UNIT [...] + + + + | EXPIRATION | [id number] | | [facility] | | | DATE [...] + + + + | BLOOD | [id number] | | [facility] | | | PRODUCT [...] | + + + + + | [facility] | [address] | [place] [address] | | | SERVICES, | [address] [...] + + + + | PRODUCT | [id number] | | [facility] | | | UNIT [...] + + + + | EXPIRATION | [id number] | | [facility] | | | DATE [...] + + + + | BLOOD | [id number] | | [facility] | | | PRODUCT [...] | + + + + + | [facility] | [address] | [place] [address] | | | SERVICES, | [address] [...] + + + + | PRODUCT | [id number] | | [facility] | | | UNIT [...] + + + + | EXPIRATION | [id number] | | [facility] | | | DATE [...] + + + + | BLOOD | [id number] | | [facility] | | | PRODUCT [...] | + + + + + | [facility] | [address] | [place] [address] | | | SERVICES, | [address] [...] + + + + | PRODUCT | [id number] | | [facility] | | | UNIT [...] + + + + | EXPIRATION | [id number] | | [facility] | | | DATE [...] + + + + | BLOOD | [id number] | | [facility] | | | PRODUCT [...] + + + + + | [facility] | [address] | [place] [address] | | | SERVICES, | [address] [...] + + + + | PRODUCT | [id number] | | [facility] | | | UNIT [...] + + + + | EXPIRATION | [id number] | | [facility] | | | DATE [...] + + + + | BLOOD | [id number] | | [facility] | | | PRODUCT [...] [facility] | [address] | [place] [address] | | | SERVICES, | [address] [...] + + + + | PRODUCT | [id number] | | [facility] | | | UNIT [...] + + + + | EXPIRATION | [id number] | | [facility] | | | DATE [...] + + + + | BLOOD | [id number] | | [facility] | | | PRODUCT [...] [facility] | [address] | [place] [address] | | | SERVICES, | [address] [...] | + + + + + | [facility] | [address] | [place] [address] | | | ELIN, NATALEE | [address] [...] | | | LABORATORY | | | AUSTRIAN | | | SERVICES, | | | [...] | + + + + + | [facility] | [address] | [place] [address] | | | SERVICES, CORE | [address] [...] | + + + + + | [facility] | [address] | [place] [address] | | | SERVICES, CORE | [address] | | | + + + + + ETHANOL (ALCOHOL), BLOOD (08/31/2017 4:50 PM PDT) + +--------+ + + + | Component | Value | Ref Range | Performed | Pathologist | | | | | At | Signature | + +--------+ + + + | ETHANOL | 41 (H) | <10 mg/dL | [facility] | | | (ALCOHOL) | | | [...] [facility] | [address] | [place] [address] | | | SERVICES, CORE | [address] [...] | + + + + + | [facility] | [address] | [place] [address] | | | ELIN, NATALEE | [address] [...] [facility] | [address] | [place] [address] | | | SERVICES, CORE | [address] [...] | | +---+---+ + +-------+ +---------+---+---+ | bacitracin ointment | Given | 11/06/19 | 1 strip | | | | INTRAPROCEDURE PRN, Starting Tue | | 18 6:03 | | | | | 11/05/17 at 1803, Until Tue | | PM PDT | | | | | 11/05/17 at 1906 | | | | | | + [...] | | | | | modification) on [facility] 11/07/17 at | | | | [...] | | +---+---+ + +-------+ +--------+---+---+ | thrombin 5000 unit topical | Given | 11/06/19 | 5,000 | | | | solution INTRAPROCEDURE PRN, | | 18 4:32 | Units | | | | Starting Tu11/05/17 at 1632, | | PM PDT | | | | | Until Sat11/05/17 at 1906 | | | | | | + [...]
--- OUTSIDE RECORDS SUMMARY | ~2020-02-06 | XMS | Encounter Summary ---
Demographics + + + | Address | [address] | | | [place] [address] | + + + | Home Phone | | + + + | Preferred Language | Unknown | + + + | Marital Status | Single | + + + | Samaritan Affiliation | PEN | + + + | Race | or | + + + | Ethnic Group | Not or | + + + Author + + + | Author | [facility] | + + + | Organization | [facility] | + + + | Address | Unknown | + + + | Phone | Unavailable | + + + Support + + +---------+ + | Name | Relationship | Address | Phone | + + +---------+ + | Kaylie Baig | ECON | Unknown | | + + +---------+ + Care Team Providers + +------+ + | Care Energy Conservation Specialist Name | Role | Phone | [...] | 2017 | Pass | Services at [facility] | | | | | | [address] | | | | | | Nola WALTERS | | | | | | [facility], [address] [place] [address] | | | | | | [place], [place] | | | | | | [address] | | | | | | [phone] | | | +--------+ + + + [...]
--- OUTSIDE RECORDS SUMMARY | ~2020-02-06 | XMS | Encounter Summary ---
Demographics + + + | Address | [address] | | | [place] [address] | + + + | Home Phone [...] | Author | [facility] [employer] | + + + | Organization | [facility] [employer] [facility] [...] Team Providers + +------+ + | Care Director Of Clinical Services Name | Role | Phone | + [...] [facility] | | | | | [facility] | [address] | | | | | Hospital Admitting | [place], [place] | | | | | Desk Located on the | [address] | | | | | 9th floor | [phone] | | | | | [place], [place] | | | | | | [address] | Rg Arriola, | | | | | | [facility] [address] | | | | | | [address] | | | | | | [place], [place] | | | | | | [address] | | | | | | [phone] | | | | | | | [...] centrally accessed); | | | | | [id number]; 10/22/17; 1542; | | | | | [...] [facility] CRNA - 10/10/2017 7:35 PM [facility] [id number] No Known Allergies No past surgical history [...] be different from the original. [place] [facility] [id number] No Known Allergies NPO:NPO Status: since admission [...] Date RATE 117 10/10/2017 ATRIALRATE 118 10/10/2017 VA 139 10/10/2017 QRS 134 10/10/2017 QT 354 [...] Action > 10/10/17735 Rg Arriola CRNA Nurse [employer]ian [employer] Sign 10/10/17700 Rg Arriola CRNA Nurse Electrician Powerhouse Share Anesthesia Plan Comments ASA ASA 4 [...] 10:28 | | | | | Starting [facility] 10/10/17 at 1028, | | AM PDT [...] PDT | | | | | Until [facility] 10/10/17 at 1244 | | | | [...]
--- OUTSIDE RECORDS SUMMARY | ~2020-02-06 | XMS | Encounter Summary ---
Demographics + + + | Address | [address] | | | [place] [address] | + + + | Home Phone | | + + + | Preferred Language | Unknown | + + + | Marital Status | Single | + + + | Adventist Affiliation | PEN | + + + | Race | or | + + + | Ethnic Group | Not or | + + + Author + + + | Author | [facility] | + + + | Organization | [facility] | + + + | Address | Unknown | + + + | Phone | Unavailable | + + + Support + + +---------+ + | Name | Relationship | Address | Phone | + + +---------+ + | Kaylie Baig | ECON | Unknown | | + + +---------+ + Care Team Providers + +------+ + | Care Emergency Preparedness Coordinator Name | Role | Phone | [...] floor | | | | | | [place], [place] | | | | | | [address] | | | +--------+ + + + [...]
--- OUTSIDE RECORDS SUMMARY | ~2020-02-06 | XMS | Encounter Summary ---
Demographics + + + | Address | [address] | | | [place] [address] | + + + | Home Phone [...] | [facility] | + + + | Organization | [facility] | + + + | Address | Unknown | + + + | Phone | Unavailable | + + + Support + + +---------+ + | Name | Relationship | Address | Phone | + + +---------+ + | Kaylie Baig | ECON | Unknown | | + + +---------+ + Care Team Providers + +------+ + | Care [employer] Name | Role | Phone | + +------+ + | No Pcp Per Patient | PCP | Unavailable | + +------+ + Encounter Details +--------+ + + + + | Date | Type | Department | Care Team | Description | +--------+ + + + + | 09/24/ | Procedure | Diagnostic Imaging | | | | 2017 | Pass | Services at [facility] | | | | | | [address] | | | | | | [place]ola [place] | | | | | | [facility] | | | | | | [place], [place] | | | | | | [address] | | | | | | [phone] | | | +--------+ + + + [...]
--- OUTSIDE RECORDS SUMMARY | ~2020-02-06 | XMS | Encounter Summary ---
Demographics + + + | Address | [address] | | | [place] [address] | + + + | Home Phone | | + + + | Preferred Language | Unknown | + + + | Marital Status | Single | + + + | Cheondoism Affiliation | PEN | + + + | Race | or | + + + | Ethnic Group | Not or | + + + Author + + + | Author | [facility] | + + + | Organization | [facility] [employer] [facility] | + + + | Address | Unknown | + + + | Phone | Unavailable | + + + Support + + +---------+ + | Name | Relationship | Address | Phone | + + +---------+ + | Kaylie Baig | ECON | Unknown | | + + +---------+ + Care Team Providers + +------+ + | Care Mantel Craftsman Name | Role | Phone | + +------+ + | No Pcp Per Patient | PCP | Unavailable | + +------+ + Encounter Details +--------+ + + + + | Date | Type | Department | Care Team | Description | +--------+ + + + + | 08/31/ | Procedure | Diagnostic Imaging | | | | 2017 | Pass | Services at [facility] | | | | | | [address] | | | | | | [place] | | | | | | [facility], [address] [place] [address] | | | | | | [place], [place] | | | | | | [address] | | | | | | [phone] | | | +--------+ + + + [...]
--- OUTSIDE RECORDS SUMMARY | ~2020-02-06 | XMS | Encounter Summary ---
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 | PARK [...] [facility] | [address] | [place] [address] | | | SERVICES, CORE | PARK [...] | | | LABORATORY | | | GERMAN | | | SERVICES, | | | [...] the MDRD equation recommended by the | [facility] | | National Kidney Disease Education [...] | + + + + + | [facility] | [address] | [place] [address] | | | NATALEE WORTHINGTON | VILMA [...] | | | correct patient, procedure, equipment, 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 Catheter lot number: [id number] with a length of 55 | | [...] At | + + + | EXAM: AK CHEST 1 VIEW HISTORY: PICC placed-pt ready. [...] Interface - 10/24/2017 3:43 PM PDT EXAM: AK CHEST 1 | | VIEW HISTORY: PICC [...] | [facility] | [address] [facility] | [place], [place] | | | [place] [facility] | [facility] | [address] | | | TESTS | | | [...] | | Surgical Critical Care, PGY7 Pager: [phone] | | + + + CAPILLARY BLOOD [...] + + + | [facility] | [address] | [place], [place] | | | [facility] | [address] | [address] | | | TESTS | | | [...] [facility] | [address] | [place], [place] | | | [facility] | [address] | [address] | | | TESTS | | | [...] | | | LABORATORY | | | GERMAN | | | SERVICES, | | | [...] | + + + + + | [facility] [facility] | [address] | [place] [address] | | | SERVICES, NATALEE | VILMA [...] + + + + + | [facility] | [address] | [place] [address] | | | SERVICES, NATALEE | VILMA [...] + + + | [facility] | [address] | [place], [place] | | | GLORIA GENAO OF [facility] | [address] | [address] | | | TESTS | | | [...] + + + + + | [facility] | [address] | [place] [address] | | | SERVICES, CORE | PARK [...] | | | LABORATORY | | | GERMAN | | | SERVICES, | | | [...] | + + + + + | [facility] [employer] [facility] | [address] | [place] [address] | | | SERVICES, CORE | PARK [...] [facility] OF | [address] | [place], [place] | | | CARDIOLOGY | [address] | [address] | | + + + + + IR GASTROSTOMY TUBE EXCHANGE (10/22/2017 2:42 PM PDT) + + | Specimen | + + | | + + + + + | Narrative | Performed At | + + + | Procedure: Gastrostomy tube exchange Primary attending | [facility] | | state federal relations deputy director: Shade Nix M.D. Preoperative diagnosis: | RADIOLOGY VOICE | | Malfunctioning Gastrostomy tube Postoperative diagnosis: Same | RECOGNITION | | Operations: Operation 1. Removal of existing Gastrostomy tube | | | over a guide wire Operation 2. Placement of 24 [place]ian GABRIEL | | | gastrostomy over guide [...] a stiff glide wire the new 24 Jordanian gastrostomy tube was | | | inserted. [...] Procedure: | | Gastrostomy tube exchangePrimary attending state federal relations deputy director: Shade Nix, | | BrynPreoperative diagnosis: Malfunctioning Gastrostomy tubePostoperative diagnosis: | | SameOperations:Operation 1. Removal of existing Gastrostomy tube over a guide | | wireOperation 2. Placement of 24 [place]ian GABRIEL gastrostomy over guide wireNo sedation was [...] glide wire the | | new 24 Jordanian gastrostomy tube was inserted. The position of [...] stiff g lide wire the new 24 Jordanian | |gastrostomy tube was inserted. The position [...] + + + + | QTC-SAURABHTT | 448 | ms | [facility] [...] [facility] | [address] | [place], [place] | | | CARDIOLOGY | [address] | [address] | | + + + + + [...] Service Adal, Radiant Res In Interface - 10/22/2017 8:06 [...] now presented. | | Final signature: Juice Goerges MD 10/22/2017 8:05 AM Preliminary: Dae Izaguirre [...] + + + + + | [facility] | [address] | [place] [address] | | | SERVICES, CORE | VIL[facility] [...] | | | LABORATORY | | | GERMAN | | | SERVICES, | | | [...] + + + + + | [facility] | [address] | [place] [address] | | | SERVICES, CORE | VILMA [...] + | [facility] | [address] | [place], [place] | | | CARDIOLOGY | [address] | [address] | | + + + + + [...] | | | LABORATORY | | | GERMAN | | | SERVICES, | | | [...] | + + + + + | [facility] | [address] | [place] [address] | | | SERVICES, CORE | VILMA [...] | + + + + + | [facility] | [address] | [place] [address] | | | SERVICES, CORE | [address] | | | + + + + + 12 LEAD ECG (10/19/2017 12:23 PM PDT) + + + + + + | Component | Value | Ref Range | Performed | Pathologist | | | | | At | Signature | + + + + + + | [facility]EN[facility] | 53 | bpm | [facility] | | | RATE | | [...] [facility] | [address] | [place], [place] | | | CARDIOLOGY | [address] | [address] | | + + + + + [...] + + + + + | [facility] | [address] | [place] [address] | | | SERVICES, CORE | [address] [...] | | | LABORATORY | | | GERMAN | | | SERVICES, | | | [...] | + + + + + | [facility] | [address] | [place] [address] | | | SERVICES, CORE | VILMA [...] + + + | ANA LILIA-HALIMA | 459 | ms | [facility] [...] | + + + + + | [facility] | [address] | [place], [place] | | | CARDIOLOGY | [address] | [address] | | + + + + + [...] | | | LABORATORY | | | GERMAN | | | SERVICES, | | | [...] [facility] | [address] | [place] [address] | | | SERVICES, NATALEE | [address] [...] [facility] | [address] | [place] [address] | | | SERVICES, CORE [...] DEPT OF | [address] | [place], [place] | | | CARDIOLOGY | [address] | [address] | | + + + + + [...] | | | LABORATORY | | | GERMAN | | | SERVICES, | | | [...] the MDRD equation recommended by the | [facility] | | National Kidney Disease Education Program. [...] [facility] | [address] | [place] [address] | | | SERVICES, CORE | PARK [...] + + + + + | [facility] | [address] | [place] [address] | | | SERVICES, CORE | VILMA [...] | | + +---------+ + + | [facility] | | | | | [facility] | | | | + [...] DEPT OF | [address] | [place], [place] | | | CARDIOLOGY | [address] | [address] | | + + + + + CAPILLARY BLOOD GLUCOSE (NO CHG), POC (10/15/2017 6:01 AM PDT) + +---------+ + + + | Component | Value | Ref Range | Performed | Pathologist | | | | | At | Signature | + +---------+ + + + | BLOOD | 134 (H) | 70 - 99 mg/dL | [facility] - | | | GLUCOSE, | | [...] [facility] | [address] | [place], [place] | | | [facility] | [facility] | [address] | | | TESTS | | | [...] [facility] | [address] | [place] [address] | | | NATALEE WORTHINGTON | VILMA [...] [facility] | [address] | [place], [place] | | | GLORIA GENAO OF [facility] | [address] | [address] | | | TESTS | | | [...] DEPT OF | [address] | [place], [place] | | | CARDIOLOGY | [address] | [address] | | + + + + + [...] [facility] | [address] | [place] [address] | | | NATALEE WORTHINGTON | VILMA [...] | | | LABORATORY | | | GERMAN | | | SERVICES, | | | [...] | + + + + + | [facility] | [address] | [place] [address] | | | NATALEE WORTHINGTON | VILMA [...] | + + + + + | [facility] | [address] | [place] [address] | | | SERVICES, NATALEE | PARK [...] [facility] | [address] | [place], [place] | | | GLORIA GENAO OF CARE | [address] | [address] | | | TESTS | | | [...] [facility] | [address] | [place], [place] | | | [place] [facility] OF [facility] | [facility] | [address] | | | TESTS | | | [...] + + + + + | [facility] | [address] | [place] [address] | | | SERVICES, CORE | VILMA [...] | | | LABORATORY | | | GERMAN | | | SERVICES, | | | [...] | + + + + + | [facility] [employer] | [address] | [place] [address] | | | SERVICES, CORE | [address] | | | + + + + + OPERATION RECORD (10/12/2017 8:50 PM PDT) + + | Procedure Note | + + | Pilar Cotto MD - 10/12/2017 8:50 PM PDT Date of Service: 10/12/2017 | | Attending Surgeon: Chaz Hernandez MD Electric Bath Attendant(s): Randell Dixon M.D., | | fellow. George [...] saline. We then | | placed a 19-Jordanian drain deep into the abscess cavity, tracking [...] case. Pilar Cotto, | | MARIA TERESA Oleary/MODDIOND: 10/12/2017 19:50:06DT: 10/12/2017 20:50:54Job #: | | [id number] | + + X-RAY PORTABLE CHEST 1 VIEW (10/12/2017 7:50 PM PDT) + + | Specimen | + + | | + + + + + | Narrative | Performed At | + + + | EXAM: AK CHEST 1 VIEW HISTORY: Evaluate endotracheal tube [...] Interface - 10/13/2017 9:04 AM PDT EXAM: AK CHEST 1 | | VIEW HISTORY: Evaluate [...] Performed At | + + + | iPlar Cotto MD 10/12/2017 7:35 PM BRIEF OPERATIVE [...] [facility] | [address] | [place], [place] | | | GLORIA GENAO OF [facility] | [address] | [address] | | | TESTS | | | [...] Sanchez MD 10/12/2017 5:04 PM Preliminary: Dae iRchardson | | MD Dmitriy Dictation initiated: Dae [...] 09/05/2017 | LABORATORY | | | ELIN, CORE | + + + + + + + + | Performing | Address | City/State/Zipcode | Phone Number | | Organization | | | | + + + + + | [facility] | [address] | [place] [address] | | | SERVICES, CORE | PARK [...] | | | LABORATORY | | | GERMAN | | | SERVICES, | | | [...] the MDRD equation recommended by the | [facility] | | National Kidney Disease Education [...] | + + + + + | [facility] | [address] | [place] [address] | | | SERVICES, CORE | PARK [...] | + + + + + | [facility] | [address] | [place] [address] | | | NATALEE WORTHINGTON | VILMA [...] + | [facility] | [address] | [place], [place] | | | CARDIOLOGY | [address] | [address] | | + + + + + [...] [facility] OF | [address] | [place], [place] | | | CARDIOLOGY | [facility] | [address] | | + + + + + [...] [facility] | [address] | [place] [address] | | | ELIN, NATALEE | PARK [...] [facility] | [address] | [place] [address] | | | SERVICES, CORE | PARK [...] | | | LABORATORY | | | GERMAN | | | SERVICES, | | | [...] the MDRD equation recommended by the | [facility] | | National Kidney Disease Education Program. [...] | + + + + + | [facility] | [address] | [place] [address] | | | NATALEE WORTHINGTON | [address] | | | + + + + + PROCEDURE NOTE (10/10/2017 10:00 PM PDT) + + + | Narrative | Performed At | + + + | Darius Link MD 10/12/2017 11:11 AM OPERATIVE REPORT | | | DATE OF OPERATION: 10/10/2017 ATTENDING SURGEON: 1. Dr. Hernandez | | | SALES REPRESENTATIVE: 1. Darius Link MD INDICATIONS: Dysphagia | | | and need for shelter nutrition access PREOPERATIVE DIAGNOSIS: | | | 1.Dysphagia and need for exterminator nutrition access | | | POSTOPERATIVE DIAGNOSIS: [...] | | | [place] [id number] Chief Resident | | | Neurosurgery | [...] + + + + + | [facility] | [address] | [place] [address] | | | SERVICES, CORE | VILMA [...] | | | LABORATORY | | | GERMAN | | | SERVICES, | | | [...] the MDRD equation recommended by the | [facility] | | National Kidney Disease Education [...] | + + + + + | [facility] | [address] | [place] [address] | | | ELIN, CORE | PARK [...] [facility] | [address] | [place] [address] | | | SERVICES, [facility] | [address] | | | + + + + + OPERATION RECORD (10/10/2017 12:40 PM PDT) + + | Procedure Note | + + | Magdiel Stock MD - 10/10/2017 12:40 PM PDT Date of Service: 10/10/2017 Attending | | Surgeon: Magdiel Stock MD Electric Bath Attendant(s): Cecilia Jackson, | | . Preoperative Diagnoses: [...] This is a 67-year-old male. Please see [facility] for full details. He | | was [...] the note for this encounter.Sonal Nunez MDOHSU [id number] [facility] | | [place] [id number] Orina, MDFAH/MODLDD: | | 10/10/2017 11:52:15DT: 10/10/2017 12:40:41Job #: [id number] | | | | | |I was present for the critical portions of the procedure as described in the note for this encounter. | | | |Magdiel Stock MD | | | |Magdiel Stock MD | |[address] | |[address] [place] [address] | |[facility] | |[place] [address] | |[phone] | | | | | |Magdiel Stock MD | |FAH/MODL | | | | | | /[id number] | + + X-RAY ABDOMEN 1 VIEW [...] + | [facility] - | [address] | [place] [address] | | | [place] | | | [...] + | [facility] - | [address] | [place] [address] | | | [place] | | | | + + + [...] Gram Stain: No squamous epithelial cells | [place] | | Many polymorphonuclear cells No organisms seen | | + + + + + + + + | Performing | Address | City/State/Zipcode | Phone Number | | Organization | | | | + + + + + | [facility] - | [address] | [place] [address] | | | [place] | | | | + + + [...] detected | [facility] - | | | [place] | + + + + + + + + | Performing | Address | City/State/Zipcode | Phone Number | | Organization | | | | + + + + + | [facility] - | [address] | [place] [address] | | | [facility] | | | | + + + [...] + | [facility] - | [address] | [place] [address] | | | [place] | | | [...] Gram Stain: No squamous epithelial cells | [place] | | Many polymorphonuclear cells No organisms seen | | + + + + + + + + | Performing | Address | City/State/Zipcode | Phone Number | | Organization | | | | + + + + + | [facility] - | [address] | [place] [address] | | | [place] | | | | + + + [...] bacteria isolated at 6 weeks. AFB | [facility] - | | Smear: AFB not detected | [facility] - | | | [place] | + + + + + + + + | Performing | Address | City/State/Zipcode | Phone Number | | Organization | | | | + + + + + | [facility] - | [address] | [place] [address] | | | [place] | | | [...] + + + + | [facility] - | [address] | [place] [address] | | | [place] | | | [...] No squamous epithelial cells No polymorphonuclear | [facility] - | | cells No organisms seen | [place] | + + + + + + + + | Performing | Address | City/State/Zipcode | Phone Number | | Organization | | | | + + + + + | [employer] - [facility] - | [address] | [place] [address] | | | [facility] | | | | + + + [...] + | [facility] - | [address] | [place] [address] | | | [place] | | | | + + + [...] Gram Stain: No squamous epithelial cells | [facility] | | Moderate polymorphonuclear cells No organisms seen | | + + + + + + + + | Performing | Address | City/State/Zipcode | Phone Number | | Organization | | | | + + + + + | [facility] - | [address] | [place] [address] | | | [facility] | | | | + + + [...] detected | [facility] - | | | [place] | + + + + + + + + | Performing | Address | City/State/Zipcode | Phone Number | | Organization | | | | + + + + + | [facility] - | [address] | [place] [address] | | | [place] | | | [...] + | [facility] - | [address] | [place] [address] | | | [place] | | | [...] + | [facility] - | [address] | [place] [address] | | | [place] | | | | + + + [...] + | [facility] - | [address] | [place] [address] | | | [place] | | | [...] + | [facility] - | [address] | [place] [address] | | | [facility] | | | | + + + [...] Gram Stain: No squamous epithelial cells | [place] | | Moderate polymorphonuclear cells No organisms seen | | + + + + + + + + | Performing | Address | City/State/Zipcode | Phone Number | | Organization | | | | + + + + + | [facility] - | [address] | [place] [address] | | | [place] | | | [...] + | [facility] - | [address] | [place] [address] | | | [place] | | | [...] [facility] | [address] | [place] [address] | | | SERVICES, CORE | VILMA [...] | + + + + + | [facility] | [address] | [place] [address] | | | SERVICES, CORE | PARK [...] [facility] | [address] | [place] [address] | | | SERVICES, CORE | VILMA [...] | | | LABORATORY | | | GERMAN | | | SERVICES, | | | [...] | + + + + + | [facility] | [address] | [place] [address] | | | NATALEE WORTHINGTON | VILMA [...] + + + + + + | LAURNE | 493 | ms | [facility] [...] DEPT OF | [address] | [place], [place] | | | CARDIOLOGY | [address] | [address] | | + + + + + [...] + + + + | PRODUCT | [id number] | | [facility] | | | UNIT [...] + + + + | EXPIRATION | [id number] | | [facility] | | | DATE [...] + + + + | BLOOD | [id number] | | [facility] | | | PRODUCT [...] | + + + + + | [facility] | [address] | [place] [address] | | | SERVICES, | [address] [...] + + + + | PRODUCT | [id number] | | [facility] | | | UNIT [...] + + + + | EXPIRATION | [id number] | | [facility] | | | DATE [...] + + + + | BLOOD | [id number] | | [facility] | | | PRODUCT [...] + + + + + | [facility] | [address] | [place] [address] | | | SERVICES, | [address] [...] [facility] | [address] | [place] [address] | | | SERVICES, | [address] [...] LABORATORY | [address] | [place] [address] | | | SERVICES, | [address] [...] | + + + + + | [facility] | [address] | [place] [address] | | | SERVICES, | [address] [...] + + + + + | [facility] | [address] | [place] [address] | | | SERVICES, CORE | PARK [...] DEPT OF | [address] | [place], [place] | | | CARDIOLOGY | [address] | [address] | | + + + + + [...] Note | + + | Service Account, [employer] In Interface - 10/08/2017 10:47 AM PDT [...] [facility] | [address] | [place], [place] | | | GLORIA GENAO OF [facility] | [facility] | [address] | | | TESTS | | | [...] | + + + + + | [facility] | [address] | [place] [address] | | | SERVICES, CORE | [address] | | | + + + + + MAGNESIUM, PLASMA (10/08/2017 6:00 AM PDT) + +-------+ + + + | Component | Value | Ref Range | Performed | Pathologist | | | | | At | Signature | + +-------+ + + + | MAGNESIUM,P | 2.2 | 1.6 - 2.6 mg/dL | [facility] | | | L[facility] | | | [...] [facility] | [address] | [place] [address] | | | NATALEE WORTHINGTON | VILMA [...] | | | LABORATORY | | | GERMAN | | | SERVICES, | | | [...] + + + + + | [facility] | [address] | [place] [address] | | | SERVICES, CORE | VILMA [...] [facility] | [address] | [place], [place] | | | [facility] | [address] | [address] | | | TESTS | | | [...] | | | POC | | | [place] | | | | | | OF [...] [facility] | [address] | [place], [place] | | | [facility] | [address] | [address] | | | TESTS | | | [...] [facility] | [address] | [place], [place] | | | [facility] [facility] | [address] | [address] | | | TESTS | | | [...] [facility] | [address] | [place], [place] | | | [facility] | [address] | [address] | | | TESTS | | | [...] - [facility] | [address] | [place], [place] | | | [facility] [facility] | [address] | [address] | | | TESTS | | | [...] | + + + + + | [facility] | [address] | [place] [address] | | | NATALEE WORTHINGTON | VILMA [...] + + + + + | [facility] | [address] | [place] [address] | | | SERVICES, CORE [...] | | | LABORATORY | | | GERMAN | | | SERVICES, | | | [...] | + + + + + | [facility] | [address] | [place] [address] | | | SERVICES, CORE | VILMA [...] 99 | 70 - 99 mg/dL | [facility] | | | GLUCOSE, | | [...] [facility] | [address] | [place], [place] | | | GL[facility]IA GE[facility]O OF [facility] | [address] | [address] | | | TESTS | | | [...] [facility] | [address] | [place], [place] | | | GL[facility] GE[facility] OF CARE | [address] | [address] | | | TESTS | | | [...] DEPT OF | [address] | [place], [place] | | | CARDIOLOGY | [facility] | [address] | | + + + + + [...] [facility] | [address] | [place], [place] | | | [facility] [facility] | [address] | [address] | | | TESTS | | | [...] | + + + + + | [facility] | [address] | [place] [address] | | | NATALEE WORTHINGTON | VILMA [...] + + + + + | [facility] | [address] | [place] [address] | | | SERVICES, NATALEE | VILMA [...] | | | LABORATORY | | | GERMAN | | | SERVICES, | | | [...] | + + + + + | [facility] | [address] | [place] [address] | | | SERVICES, CORE | PARK [...] (H) | 70 - 99 mg/dL | [facility] - | | | GLUCOSE, | [...] [facility] | [address] | [place], [place] | | | [facility] [facility] | [address] | [address] | | | TESTS | | | [...] [facility] | [address] | [place], [place] | | | GLORIA GENAO OF CARE | [address] | [address] | | | TESTS | | | [...] [facility] | [address] | [place], [place] | | | GLORIA GENAO OF [facility] | [address] | [address] | | | TESTS | | | [...] [facility] | [address] | [place], [place] | | | GLORIA GENAO OF CARE | [address] | [address] | | | TESTS | | | [...] DEPT OF | [address] | [place], [place] | | | CARDIOLOGY | [address] | [address] | | + + + + + [...] + + + + + | [facility] | [address] | [place] [address] | | | SERVICES, CORE | PARK [...] [facility] | [address] | [place] [address] | | | SERVICES, CORE | [address] [...] | | | LABORATORY | | | GERMAN | | | SERVICES, | | | [...] the MDRD equation recommended by the | [facility] | | National Kidney Disease Education Program. [...] + + + + + | [facility] | [address] | [place] [address] | | | NATALEE WORTHINGTON | VILMA [...] (H) | 70 - 99 mg/dL | [facility] - | | | GLUCOSE, | [...] [facility] | [address] | [place], [place] | | | [place] [facility] | [address] | [address] | | | TESTS | | | [...] [facility] | [address] | [place], [place] | | | GLORIA GE[facility]O OF [employer] | [address] | [address] | | | TESTS | | | [...] [facility] | [address] | [place], [place] | | | GLORIA GE[facility]O OF [employer] | [facility] | [address] | | | TESTS | | | [...] (H) | 70 - 99 mg/dL | [facility] - | | | GLUCOSE, | [...] [facility] | [address] | [place], [place] | | | [facility] | [address] | [address] | | | TESTS | | | [...] [facility] | [address] | [place], [place] | | | GL[facility] GE[facility] [employer] | [address] | [address] | | | TESTS | | | [...] | + + + + + | [facility] | [address] | [place] [address] | | | SERVICES, CORE | [address] | | | + + + + + MAGNESIUM, PLASMA (10/04/2017 5:28 AM PDT) + +-------+ + + + | Component | Value | Ref Range | Performed | Pathologist | | | | | At | Signature | + +-------+ + + + | MAGNESIUM,P | 2.0 | 1.6 - 2.6 mg/dL | [facility] | | | [facility] | | | [...] [facility] | [address] | [place] [address] | | | SERVICES, NATALEE | VILMA [...] | | | LABORATORY | | | GERMAN | | | SERVICES, | | | [...] | + + + + + | [facility] | [address] | [place] [address] | | | SERVICES, NATALEE | VILMA [...] [facility] | [address] | [place], [place] | | | HILL, POINT OF CARE | [facility] | [address] | | | TESTS | | | [...] [facility] | [address] | [place], [place] | | | GLORIA GENAO OF [facility] | [address] | [address] | | | TESTS | | | [...] + + + + + | [facility] | [address] | [place] [address] | | | SERVICES, CORE | VILMA [...] by | | | | | | [address] | | | | | | Rogelio Pickard, [facility] | | | | | | [address] | | | | | | [phone]. | | | | | | com, Gui Ervin MD, | | | | | | [...] [facility] | [address] | [place], [place] | | | [facility] | | [address] | | + + + + + [...] | + + + + + | [facility] | [address] | [place] [address] | | | SERVICES, CORE | PARK [...] LABORATORY | [address] | [place] [address] | | | SERVICES, CORE | PARK [...] modified from | [facility] | | original terrazzo tile setter's approved specifications. The performance | LABORATORY | | of the [employer] HIV Combo test, with or without confirmation, [...] | + + + + + | [facility] | [address] | [place] [address] | | | SERVICES, SPECIAL | VILMA [...] (H) | 70 - 99 mg/dL | [facility] | | | GLUCOSE, | | [...] [facility] | [address] | [place], [place] | | | [facility] | [address] | [address] | | | TESTS | | | [...] [facility] | [address] | [place], [place] | | | GL[facility] GE[facility]O OF CARE | [address] | [address] | | | TESTS | | | [...] | + + + + + | [facility] | [address] | [place] [address] | | | SERVICES, NATALEE | PARK [...] [facility] | [address] | [place] [address] | | | SERVICES, CORE | PARK [...] | | | LABORATORY | | | GERMAN | | | SERVICES, | | | [...] the MDRD equation recommended by the | [facility] | | National Kidney Disease Education Program. [...] | + + + + + | [facility] | [address] | [place] [address] | | | NATALEE WORTHINGTON | VILMA [...] [facility] | [address] | [place], [place] | | | [facility] | [address] | [address] | | | TESTS | | | [...] [facility] | [address] | [place], [place] | | | GL[facility]IA GENAO OF CARE | [address] | [address] | | | TESTS | | | [...] + + + + | [facility] | 484 | ms | [facility] DE[facility] [...] DEPT OF | [address] | [place], [place] | | | CARDIOLOGY | [address] | [address] | | + + + + + [...] At | + + + | EXAM: AK CHEST 1 VIEW HISTORY: Evaluate PICC placement [...] Note | + + | Service Account, [employer] In Interface - 10/02/2017 2:07 PM PDT EXAM: AK CHEST 1 | | VIEW HISTORY: Evaluate [...] [facility] | [address] | [place], [place] | | | [facility]ARE | [address] | [address] | | | TESTS | | | | + + + + + X-RAY PORTABLE CHEST 1 VIEW (10/02/2017 8:56 AM PDT) + + | Specimen | + + | | + + + + + | Narrative | Performed At | + + + | EXAM: AK CHEST 1 VIEW HISTORY: new leukocytosis, eval [...] Note | + + | Service Account, [employer] In Interface - 10/02/2017 10:27 AM PDT EXAM: AK CHEST 1 | | VIEW HISTORY: new [...] [facility] | [address] | [place], [place] | | | [facility] | [address] | [address] | | | TESTS | | | [...] | + + + + + | [facility] | [address] | [place] [address] | | | NATALEE WORTHINGTON | VILMA [...] | + + + + + | [facility] | [address] | [place] [address] | | | NATALEE WORTHINGTON | VILMA [...] | | | LABORATORY | | | GERMAN | | | SERVICES, | | | [...] | + + + + + | [facility] | [address] | [place] [address] | | | SERVICES, CORE | PARK [...] P[facility] | [address] | [place], [place] | | | [facility] | [address] | [address] | | | TESTS | | | [...] [facility] | [address] | [place], [place] | | | [facility] | [address] | [address] | | | TESTS | | | [...] [facility] | [address] | [place], [place] | | | [facility] | [facility] | [address] | | | TESTS | | | [...] Note | + + | Service Account, [employer] In Interface - 10/01/2017 11:34 AM PDT [...] + + + | [facility] | [address] | [place], [place] | | | [facility] | [address] | [address] | | | TESTS | | | [...] [facility] | [address] | [place] [address] | | | NATALEE WORTHINGTON | PARK [...] | + + + + + | [facility] | [address] | [place] [address] | | | SERVICES, NATALEE | VILMA [...] | | | LABORATORY | | | GERMAN | | | SERVICES, | | | [...] + + + + + | [facility] | [address] | [place] [address] | | | SERVICES, CORE | VILMA [...] PICKETT | [address] | [place], [place] | | | [facility] | [address] | [address] | | | TESTS | | | | + + + + + CAPILLARY BLOOD GLUCOSE (NO CHG), CITLALY (09/30/2017 6:01 PM PDT) + +---------+ + [...] - [facility] | [address] | [place], [place] | | | [facility] GE[facility]O [facility] | [address] | [address] | | | TESTS | | | [...] [facility] | [address] | [place], [place] | | | CARDIOLOGY | [address] | [address] | | + + + + + [...] P[facility]ETT | [address] | [place], [place] | | | [facility] | [address] | [address] | | | TESTS | | | [...] [facility] | [address] | [place], [place] | | | [facility] | [address] | [address] | | | TESTS | | | [...] [facility] | [address] | [place] [address] | | | SERVICES, NATALEE | PARK [...] [facility] | [address] | [place] [address] | | | SERVICES, CORE | PARK [...] | | | LABORATORY | | | GERMAN | | | SERVICES, | | | [...] the MDRD equation recommended by the | [facility] | | National Kidney Disease Education Program. [...] | + + + + + | [facility] | [address] | [place] [address] | | | NATALEE WORTHINGTON | VILMA [...] [facility] | [address] | [place], [place] | | | [facility] | [address] | [address] | | | TESTS | | | [...] [facility] | [address] | [place], [place] | | | GLORIA GENAO OF GM | [address] | [address] | | | TESTS | | | [...] [facility] | [address] | [place], [place] | | | GLORIA GENAO OF CARE | [address] | [address] | | | TESTS | | | [...] + | [facility] | [address] | [place], [place] | | | CARDIOLOGY | [address] | [address] | | + + + + + [...] [facility] | [address] | [place], [place] | | | GLORIA GENAO OF GM | [facility] | [address] | | | TESTS | | | [...] + + + + + | [facility] | [address] | [place] [address] | | | SERVICES, CORE | VILMA [...] | | | LABORATORY | | | GERMAN | | | SERVICES, | | | [...] + + | [facility] | [address] | [place] [address] | | | SERVICES, CORE | PARK [...] | + + + + + | [facility] | [address] | [place] [address] | | | SERVICESNATALEE | [address] [...] [facility] | [address] | [place], [place] | | | GLORIA GENAO OF CARE | [facility] | [address] | | | TESTS | | | [...] [facility] | [address] | [place], [place] | | | [facility] | [address] | [address] | | | TESTS | | | [...] [facility] | [address] | [place], [place] | | | [facility] | [address] | [address] | | | TESTS | | | [...] DEPT OF | [address] | [place], [place] | | | CARDIOLOGY | [address] | [address] | | + + + + + [...] P[facility] | [address] | [place], [place] | | | GLORIA GENAO OF [facility] | [facility] | [address] | | | TESTS | | | [...] [facility] | [address] | [place] [address] | | | NATALEE WORTHINGTON | [...] | + + + + + | [facility] | [address] | [place] [address] | | | SERVICES, CORE | PARK [...] | | | LABORATORY | | | GERMAN | | | SERVICES, | | | [...] | + + + + + | [facility] | [address] | [place] [address] | | | SERVICES, CORE | VILMA [...] [facility] | [address] | [place], [place] | | | GLORIA GENAO OF GM | [facility] | [address] | | | TESTS | | | [...] - [facility] | [address] | [place], [place] | | | [facility] | [address] | [address] | | | TESTS | | | [...] [facility] | [address] | [place], [place] | | | GLORIA GENAO OF CARE | [address] | [address] | | | TESTS | | | [...] [facility] | [address] | [place], [place] | | | [place] [facility] OF [facility] | [address] | [address] | | | TESTS | | | [...] + + + + + | [facility] | [address] | [place] [address] | | | SERVICES, CORE | VILMA [...] + + + + + | [facility] | [address] | [place] [address] | | | SERVICES, CORE | PARK [...] | | | LABORATORY | | | GERMAN | | | SERVICES, | | | [...] the MDRD equation recommended by the | [facility] | | National Kidney Disease Education [...] | + + + + + | [facility] | [address] | [place] [address] | | | SERVICES, CORE | VILMA [...] (H) | 70 - 99 mg/dL | [facility] - | | | GLUCOSE, | [...] P[facility]ETT | [address] | [place], [place] | | | GLORIA GENAO OF [facility] | [address] | [address] | | | TESTS | | | [...] [facility] | [address] | [place], [place] | | | GL[facility] GE[facility] CARE | [address] | [address] | | | TESTS | | | [...] OF | [address] | [place], [place] | | | CARDIOLOGY | [address] | [address] | | + + + + + [...] + + + | [facility] | [address] | [place], [place] | | | [facility] | [address] | [address] | | | TESTS | | | [...] [facility] | [address] | [place], [place] | | | [facility] | [address] | [address] | | | TESTS | | | [...] - [facility] | [address] | [place], [place] | | | [facility] | [address] | [address] | | | TESTS | | | [...] | + + + + + | [facility] | [address] | [place] [address] | | | NATALEE WORTHINGTON | VILMA [...] + + + + + | [facility] | [address] | [place] [address] | | | SERVICES, CORE | VILMA [...] | | | LABORATORY | | | GERMAN | | | SERVICES, | | | [...] | + + + + + | [facility] | [address] | [place] [address] | | | SERVICES, CORE | VILMA [...] (H) | 70 - 99 mg/dL | [facility] - | | | GLUCOSE, | [...] [facility] | [address] | [place], [place] | | | GLORIA GENAO OF GM | [address] | [address] | | | TESTS | | | [...] | + + + + + | [facility] | [address] | [place] [address] | | | SERVICES, CORE | VILMA [...] + + + + + | [facility] | [address] | [place] [address] | | | SERVICES, CORE | PARK [...] | | | LABORATORY | | | GERMAN | | | SERVICES, | | | [...] [facility] | [address] | [place] [address] | | | SERVICES, CORE | VILMA [...] + | [facility] | [address] | [place], [place] | | | CARDIOLOGY | [address] | [address] | | + + + + + [...] Edelmira Parsons MD 09/24/2017 2:43 PM Preliminary: Prabhakar Trejo | | | Fluoro Time 55 second(s) [...] Note | + + | Service Account, Nature's Variety Res In Interface - 09/24/2017 4:09 PM [...] | + + + + + | [facility] | [address] | [place] [address] | | | NATALEE WORTHINGTON | PARK [...] | | | LABORATORY | | | GERMAN | | | SERVICES, | | | [...] [facility] | [address] | [place] [address] | | | SERVICES, CORE | PARK [...] | + + + + + | [facility] | [address] | [place] [address] | | | NATALEE WORTHINGTON | PARK [...] | + + + + + | [facility] | [address] | [place] [address] | | | SERVICES, CORE | [address] | | | + + + + + MAGNESIUM, PLASMA (09/23/2017 4:04 AM PDT) + +-------+ + + + | Component | Value | Ref Range | Performed | Pathologist | | | | | At | Signature | + +-------+ + + + | MAGNESIUM,P | 2.1 | 1.6 - 2.6 mg/dL | [facility] | | | L[facility]MA | | | [...] [facility] | [address] | [place] [address] | | | SERVICES, CORE | VILMA [...] | | | LABORATORY | | | GERMAN | | | SERVICES, | | | [...] + + + + + | [facility] | [address] | [place] [address] | | | ELIN, NATALEE | VILMA [...] [facility] | [address] | [place], [place] | | | GLORIA GENAO OF CARE | [facility] | [address] | | | TESTS | | | [...] (H) | 70 - 99 mg/dL | [facility] - | | | GLUCOSE, | [...] [facility] | [address] | [place], [place] | | | [facility] | [address] | [address] | | | TESTS | | | [...] I | <0.02 | <0.80 ng/mL | [facility] | | | | | | LABORATORY [...] | + + + + + | [facility] | [address] | [place] [address] | | | SERVICES, CORE | PARK [...] DEPT OF | [address] | [place], [place] | | | CARDIOLOGY | [address] | [address] | | + + + + + [...] [facility] | [address] | [place] [address] | | | NATALEE WORTHINGTON | PARK [...] [facility] | [address] | [place] [address] | | | SERVICES, CORE | PARK [...] | | | LABORATORY | | | GERMAN | | | SERVICES, | | | [...] the MDRD equation recommended by the | [facility] | | National Kidney Disease Education [...] | + + + + + | [facility] | [address] | [place] [address] | | | NATALEE WORTHINGTON | VILMA [...] [facility] | [address] | [place], [place] | | | [facility] [facility] | [address] | [address] | | | TESTS | | | [...] | + + + + + | [facility] | [address] | [place] [address] | | | NATALEE WORTHINGTON | VILMA [...] | + + + + + | [facility] | [address] | [place] [address] | | | NATALEE WORTHINGTON | [...] | | | LABORATORY | | | GERMAN | | | SERVICES, | | | [...] + + + + + | [facility] | [address] | [place] [address] | | | SERVICES, CORE | VILMA [...] Note | + + | Service Account, Nature's Variety Res In Interface - 09/20/2017 7:50 PM [...] Note | + + | Service Account, Nature's Variety Res In Interface - 09/20/2017 6:25 PM [...] Note | + + | Service Account, [employer] In Interface - 09/20/2017 6:26 PM PDT [...] Note | + + | Service Account, Nature's Variety Res In Interface - 09/20/2017 5:17 PM [...] [facility] | [address] | [place], [place] | | | CARDIOLOGY | [facility] | [address] | | + + + + + [...] + + + + + | [facility] | [address] | [place] [address] | | | SERVICES, CORE | VILMA [...] LABORATORY | [address] | [place] [address] | | | SERVICES, CORE | PARK [...] | | | LABORATORY | | | GERMAN | | | SERVICES, | | | [...] [facility] | [address] | [place] [address] | | | SERVICES, CORE | PARK [...] | + + + + + | [facility] | [address] | [place] [address] | | | SERVICES, CORE | VILMA [...] [facility] | [address] | [place] [address] | | | SERVICES, CORE | PARK [...] | | | LABORATORY | | | GERMAN | | | SERVICES, | | | [...] the MDRD equation recommended by the | [facility] | | National Kidney Disease Education [...] | + + + + + | [facility] | [address] | [place] [address] | | | SERVICES, CORE | PARK [...] | + + + + + | [facility] | [address] | [place] [address] | | | SERVICES, CORE | VILMA [...] [facility] | [address] | [place] [address] | | | SERVICES, CORE | PARK [...] | | | LABORATORY | | | GERMAN | | | SERVICES, | | | [...] the MDRD equation recommended by the | [facility] | | National Kidney Disease Education Program. [...] | + + + + + | [facility] | [address] | [place] [address] | | | SERVICES, [facility] [...] Note | + + | Service Account, [employer] In Interface - 09/17/2017 11:53 AM PDT [...] | + + + + + | [facility] | [address] | [place] [address] | | | NATALEE WORTHINGTON | VILMA [...] | + + + + + | [facility] | [address] | [place] [address] | | | NATALEE WORTHINGTON | PARK [...] | | | LABORATORY | | | GERMAN | | | SERVICES, | | | [...] | + + + + + | [facility] | [address] | [place] [address] | | | SERVICES, CORE | [address] | | | + + + + + X-RAY PORTABLE CHEST PICC LINE CHECK (09/16/2017 1:11 PM PDT) + + | Specimen | + + | | + + + + + | Narrative | Performed At | + + + | EXAM: AK CHEST PICC LINE CHECK HISTORY: PICC placement [...] Interface - 09/16/2017 1:34 PM PDT EXAM: AK CHEST | | PICC LINE CHECK HISTORY: [...] At | + + + | EXAM: AK CHEST PICC LINE CHECK HISTORY: Evaluate PICC [...] Note | + + | Service Account, [employer] In Interface - 09/16/2017 11:41 AM PDT EXAM: AK CHEST | | PICC LINE CHECK HISTORY: [...] | + + + + + | [facility] | [address] | [place] [address] | | | NATALEE WORTHINGTON | VILMA [...] + + + + + | [facility] | [address] | [place] [address] | | | SERVICES, CORE [...] | | | LABORATORY | | | GERMAN | | | SERVICES, | | | [...] | + + + + + | [facility] | [address] | [place] [address] | | | SERVICES, CORE | [address] | | | + + + + + X-RAY PORTABLE CHEST 1 VIEW (09/15/2017 3:28 PM PDT) + + | Specimen | + + | | + + + + + | Narrative | Performed At | + + + | EXAM: AK CHEST 1 VIEW HISTORY: COMPARISON: None. 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 Catheter lot number: [id number] with a length of 55 | | [...] Service Account, Kostas Casper In Interface - 09/15/2017 2:13 PM PDT [...] + + + + + | [facility] | [address] | [place] [address] | | | SERVICES, NATALEE | VILMA [...] + + + + + | [facility] | [address] | [place] [address] | | | SERVICES, CORE | VILMA [...] | | | LABORATORY | | | GERMAN | | | SERVICES, | | | [...] | + + + + + | [facility] | [address] | [place] [address] | | | SERVICES, CORE | [address] | | | + + + + + X-RAY SPINE CERVICAL 2 VIEWS (09/14/2017 4:51 PM PDT) + + | Specimen | + + | | + + + + + | Narrative | Performed At | + + + | EXAM: SPINE CERVICAL 2 VIEWS HISTORY: Cervical spine fractures | [facility] | | COMPARISON: 08/31/17 FINDINGS: The [...] [facility] | [address] | [place] [address] | | | NATALEE WORTHINGTON | PARK [...] | + + + + + | [facility] | [address] | [place] [address] | | | NATALEE WORTHINGTON | VILMA [...] | | | LABORATORY | | | GERMAN | | | SERVICES, | | | [...] + + + + + | [facility] | [address] | [place] [address] | | | SERVICES, CORE | PARK [...] | + + + + + | [facility] | [address] | [place] [address] | | | NATALEE WORTHINGTON | PARK [...] | + + + + + | [facility] | [address] | [place] [address] | | | NATALEE WORTHINGTON | PARK [...] | | | LABORATORY | | | GERMAN | | | SERVICES, | | | [...] + + + + + | [facility] | [address] | [place] [address] | | | SERVICES, CORE | [address] | | | + + + + + X-RAY ABD LTD FEEDING TUBE KAREEMAL (09/12/2017 6:50 AM PDT) + + | [...] [facility] | [address] | [place] [address] | | | SERVICES, NATALEE | PARK [...] [facility] | [address] | [place] [address] | | | SERVICES, [facility] | [address] | | | + [...] | | | LABORATORY | | | GERMAN | | | SERVICES, | | | [...] the MDRD equation recommended by the | [facility] | | National Kidney Disease Education [...] | + + + + + | [facility] | [address] | [place] [address] | | | NATALEE WORTHINGTON | VILMA [...] [facility] | [address] | [place] [address] | | | SERVICES, CORE | PARK [...] | + + + + + | [facility] | [address] | [place] [address] | | | SERVICES, NATALEE | VILMA [...] | | | LABORATORY | | | GERMAN | | | SERVICES, | | | [...] + + + + + | [facility] | [address] | [place] [address] | | | SERVICES, CORE | VILMA [...] | + + + + + | [facility] | [address] | [place] [address] | | | SERVICES, CORE | VILMA [...] Note | + + | Service Account, [employer] In Interface - 09/10/2017 2:08 PM [...] Note | + + | Service Account, [employer] In Interface - 09/10/2017 2:31 PM PDT [...] At | + + + | STUDY: AK CHEST 1 VIEW 09/10/17 07:02:01 HISTORY: Possible [...] Interface - 09/10/2017 9:25 AM PDT STUDY: AK CHEST 1 | | VIEW 09/10/17 07:02:01 [...] [facility] | [address] | [place] [address] | | | SERVICES, CORE | VILMA [...] [facility] | [address] | [place] [address] | | | SERVICES, CORE | PARK [...] + + + + + | [facility] | [address] | [place] [address] | | | SERVICES, CORE | PARK [...] [facility] | [address] | [place] [address] | | | SERVICES, CORE | PARK [...] | | | LABORATORY | | | GERMAN | | | SERVICES, | | | [...] the MDRD equation recommended by the | [facility] | | National Kidney Disease Education [...] | + + + + + | [facility] | [address] | [place] [address] | | | NATALEE WORTHINGTON | VILMA [...] DEPT OF | [address] | [place], [place] | | | CARDIOLOGY | [address] | [address] | | + + + + + [...] Note | + + | Service Account, [employer] Vari[employer] In Interface - 09/10/2017 11:11 AM [...] [facility] | [address] | [place], [place] | | | [facility] | [address] | [address] | | | TESTS | | | [...] [facility] | [address] | [place] [address] | | | SERVICES, NATALEE | VILMA [...] [facility] | [address] | [place] [address] | | | SERVICES, CORE | PARK [...] | | | LABORATORY | | | GERMAN | | | SERVICES, | | | [...] the MDRD equation recommended by the | [facility] | | National Kidney Disease Education Program. [...] | + + + + + | [facility] | [address] | [place] [address] | | | NATALEE WORTHINGTON | VILMA [...] [facility] | [address] | [place] [address] | | | SERVICES, CORE | PARK [...] | | | LABORATORY | | | GERMAN | | | SERVICES, | | | [...] the MDRD equation recommended by the | [facility] | | National Kidney Disease Education [...] [facility] | [address] | [place] [address] | | | SERVICES, CORE | PARK [...] + + + + + | [facility] | [address] | [place] [address] | | | SERVICES, CORE | VILMA [...] [facility] | [address] | [place] [address] | | | SERVICES, CORE | VILMA [...] DEPT OF | [address] | [place], [place] | | | CARDIOLOGY | [address] | [address] | | + + + + + X-RAY PORTABLE CHEST 1 VIEW (09/07/2017 6:12 AM PDT) + + | Specimen | + + | | + + + + + | Narrative | Performed At | + + + | EXAM: AK CHEST 1 VIEW HISTORY: Post extubation COMPARISON: [...] Note | + + | Service Account, [employer] In Interface - 09/07/2017 10:46 AM PDT EXAM: AK CHEST 1 | | VIEWHISTORY: Post extubationCOMPARISON: [...] [facility] | [address] | [place] [address] | | | NATALEE WORTHINGTON | VILMA [...] | | | LABORATORY | | | GERMAN | | | SERVICES, | | | [...] + + + + + | [facility] | [address] | [place] [address] | | | SERVICES, CORE | VILMA [...] + + + + + | [facility] | [address] | [place] [address] | | | SERVICES, CORE | VILMA [...] Note | + + | Service Account, HeribertoModify Res In Interface - 09/07/2017 10:46 AM [...] DEPT OF | [address] | [place], [place] | | | CARDIOLOGY | [address] | [address] | | + + + + + [...] addressed. Patient Location | | | (Unit/Room#): 8CU #5 Indication for Midline: Access | | [...] | | | attempt. Midline lot number [id number]; there was positive blood | | | [...] | | | LABORATORY | | | GERMAN | | | SERVICES, | | | [...] [facility] | [address] | [place] [address] | | | SERVICES, CORE | PARK [...] | + + + + + | [facility] | [address] | [place] [address] | | | [facility] | [address] | | | + + + + + X-RAY PORTABLE CHEST 1 VIEW (09/05/2017 5:33 AM PDT) + + | Specimen | + + | | + + + + + | Narrative | Performed At | + + + | EXAM: AK CHEST 1 VIEW HISTORY: Evaluation after chest [...] Note | + + | Service Account, [employer] In Interface - 09/05/2017 10:16 AM PDT EXAM: AK CHEST 1 | | VIEW HISTORY: Evaluation [...] | | + +---------+ + + | [facility] | | | | | [...] + + + + + | [facility] | [address] | [place] [address] | | | SERVICES, CORE | VILMA [...] + + + + + | [facility] | [address] | [place] [address] | | | SERVICES, CORE | VILMA [...] | | | LABORATORY | | | GERMAN | | | SERVICES, | | | [...] [facility] | [address] | [place] [address] | | | SERVICES, CORE | [address]ARK [...] | | | LABORATORY | | | GERMAN | | | SERVICES, | | | [...] the MDRD equation recommended by the | [facility] | | National Kidney Disease Education [...] + + + + + | [facility] | [address] | [place] [address] | | | [facility] | [address] [...] tomorrow morning. CB Henson Pager / [place]: [phone] | | + + + CULTURE, SPUTUM [...] seen | AIR[facility] - | | | [facility] | + + + + + + + + | Performing | Address | City/State/Zipcode | Phone Number | | Organization | | | | + + + + + | [employer] - AIRPORT - | [address] | [place] [address] | | | [place] | | | | + + + [...] | + + + + + | [facility] | [address] | [place] [address] | | | SERVICES, CORE | VILMA [...] | [facility] | | | GRAVITY | Inman performed by | | LABORATORY | | [...] [facility] | [address] | [place] [address] | | | SERVICES, CORE | PARK [...] | + + + + + | [facility] | [address] | [place] [address] | | | SERVICES, CORE | VILMA [...] | + + + + + | [facility] | [address] | [place] [address] | | | SERVICES, CORE | VILMA [...] + + + + | [facility] | 474 | ms | [facility] [...] | + + + + + | [facility] | [address] | [place], [place] | | | CARDIOLOGY | [address] | [address] | | + + + + + X-RAY PORTABLE CHEST 1 VIEW (09/04/2017 7:04 AM PDT) + + | Specimen | + + | | + + + + + | Narrative | Performed At | + + + | EXAM: AK CHEST 1 VIEW HISTORY: Hypoxia. Intubated. | [...] | Procedure Note | + + | Kostas Reynolds Res In Interface - 09/04/2017 9:49 AM PDT EXAM: AK CHEST 1 | | VIEW HISTORY: Hypoxia. [...] + + + + + | [facility] | [address] | [place] [address] | | | SERVICES, CORE | VILMA [...] [facility] | [address] | [place] [address] | | | SERVICES, [facility] [...] | | | LABORATORY | | | [place] | | | SERVICES, | | | [...] the MDRD equation recommended by the | [facility] | | National Kidney Disease Education [...] | + + + + + | [facility] | [address] | [place] [address] | | | SERVICES, CORE | [address] | | | + + + + + MAGNESIUM, PLASMA (09/04/2017 12:29 AM PDT) + +-------+ + + + | Component | Value | Ref Range | Performed | Pathologist | | | | | At | Signature | + +-------+ + + + | MAGNESIUM,P | 1.9 | 1.6 - 2.6 mg/dL | [facility] | | | LASMA | | | [...] [facility] | [address] | [place] [address] | | | SERVICES, NATALEE | V[place]MA [...] [facility] | [address] | [place], [place] | | | [facility] | [address] | [address] | | | TESTS | | | [...] [facility] | [address] | [place], [place] | | | [facility] | [address] | [address] | | | TESTS | | | [...] [facility] | [address] | [place], [place] | | | [facility] | [address] | [address] | | | TESTS | | | [...] [facility] | [address] | [place], [place] | | | [facility] | [facility] | [address] | | | TESTS | | | [...] Note | + + | Service Account, HeribertoModify Res In Interface - 09/03/2017 10:27 AM [...] | | + +---------+ + + | [facility] | | | | | [...] detected | AIRPORT - | | | [place] | + + + + + + + + | Performing | Address | City/State/Zipcode | Phone Number | | Organization | | | | + + + + + | [employer] - AIRPORT - | [address] | [place] [address] | | | [place] | | | [...] + + + + + | [facility] | [address] | [place] [address] | | | ELIN, NATALEE | VILMA [...] Note | + + | Service Account, [employer] In Interface - 09/03/2017 9:54 AM PDT [...] detected | AIRPORT - | | | [place] | + + + + + + + + | Performing | Address | City/State/Zipcode | Phone Number | | Organization | | | | + + + + + | [facility] - | [address] | [place] [address] | | | [place] | | | | + + + [...] [facility] | [address] | [place] [address] | | | SERVICES, CORE | PARK [...] + + + + + | [facility] | [address] | [place] [address] | | | SERVICES, CORE | VILMA [...] | | | LABORATORY | | | GERMAN | | | SERVICES, | | | [...] + + + + + | [facility] | [address] | [place] [address] | | | SERVICES, CORE | VILMA [...] + + + + + | [facility] | [address] | [place] [address] | | | SERVICES, CORE | [address] | | | + + + + + OPERATION RECORD (09/02/2017 6:53 PM PDT) + + | Procedure Note | + + | Fidelina Shields MD - 09/02/2017 6:53 PM PDT Date of Service: 09/02/2017 | | Attending Surgeon: Fidelina Shields 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 Preoperative [...] 09/02/2017 18:15:29DT: 09/02/2017 18:53:52Job #: | | [id number] to federal Medicare and Medicaid regulations I was present for | | the entire procedure.Fidelina Shields MDAssistant ProfessorDepartment of SurgeryOffice: | | [phone]: [id number] has been electronically signed by Fidelina Shields MD, | | 09/03/2017 at 9:11 AM. | | | | | |Fidelina Shields MD | |Employment Law Attorney | |Department of Surgery | |Office: [phone] | |Pager: [phone] | | | |This has been electronically [...] + + + + + | [facility] | [address] | [place] [address] | | | SERVICES, CORE | VILMA [...] | + + + + + | [facility] | [address] | [place] [address] | | | SERVICES, CORE | PARK [...] detected | AIRPORT - | | | [place] | + + + + + + + + | Performing | Address | City/State/Zipcode | Phone Number | | Organization | | | | + + + + + | [facility] - [facility] - | [address] | [place] [address] | | | [place] | | | [...] [facility] | [address] | [place] [address] | | | NATALEE WORTHINGTON | PARK [...] | | | LABORATORY | | | GERMAN | | | SERVICES, | | | [...] | + + + + + | [facility] | [address] | [place] [address] | | | NATALEE WORTHINGTON | VILMA [...] Note | + + | Service Account, [employer] In Interface - 09/02/2017 4:25 PM [...] surgical | | | contact: INGRID Butts, R4 Surgery [id number] Pursuant | | | to federal Medicare and Medicaid regulations I was present for the | | | entire procedure. Fidelina Shields MD Employment Law Attorney | | | Department of Surgery Office: [phone] Pager: [phone] This has | | | been electronically [...] [facility] | [address] | [place] [address] | | | SERVICES, CORE | PARK [...] + + + + + | [facility] | [address] | [place] [address] | | | [facility] | [address] | | | + + + + + OPERATION RECORD (09/02/2017 6:51 AM PDT) + ---+ | Procedure Note | + ---+ | Fidelina Shields MD - 09/02/2017 6:51 AM PDT Date of Service: 09/01/2017 | | Attending Surgeon: Fidelina Shields MD Electric Bath Attendant(s): Haim Peralta MD. | | Ajay Butts [...] 09/02/2017 06:17:53DT: 09/02/2017 | | 06:51:37Job #: [id number] to federal Medicare and Medicaid regulations I | | was present for the entire procedure.Fidelina Tenorio ProfessorDepartment of | | SurgeryOffice: [phone]: [id number] has been electronically signed by Fidelina Whitman | | MD Cornelius, 09/02/2017 at 10:40 AM. | | | | | |Pursuant to federal Medicare and Medicaid regulations I was present for the entire procedur e. | | | | | | | |Fidelina Shields MD | |Employment Law Attorney | |Department of Surgery | |Office: [phone] | |Pager: [phone] | | | |This has been electronically [...] | + + + + + | [facility] | [address] | [place] [address] | | | SERVICES, CORE | PARK [...] [facility] | [address] | [place] [address] | | | SERVICES, CORE | VILMA [...] + + + + | PRODUCT | [id number] | | [facility] | | | UNIT [...] + + + + | EXPIRATION | [id number] | | [facility] | | | DATE [...] + + + + | BLOOD | [id number] | | [facility] | | | PRODUCT [...] [facility] | [address] | [place] [address] | | | SERVICES, | [address] [...] + + + + + | [facility] | [address] | [place] [address] | | | SERVICES, CORE | VILMA [...] | | | LABORATORY | | | GERMAN | | | SERVICES, | | | [...] + + + + + | [facility] | [address] | [place] [address] | | | SERVICES, CORE | VILMA [...] + + + + + | [facility] | [address] | [place] [address] | | | SERVICES, CORE | VILMA [...] | | | | INFORMATION: | | [place] | | | | [employer] | [...] (http://www.cdc.gov/mmwr | | | | | | [email or web address] | | | | | | [email or web address]), [...] [facility] - | | | | by [employer], | | AIRPORT - | | | | | | [place] | | | | [address] | | | | | | [facility] | | | | | | [address] | | | | | | | | | | | | [email or web address] | | | | | | [...] + | [facility] - | [address] | [place] [address] | | | [place] | | | [...] + + + + + | [facility] | [address] | [place] [address] | | | SERVICES, CORE | VILMA [...] + + + + + | [facility] | [address] | [place] [address] | | | SERVICES, CORE | PARK [...] At | + + + | EXAM: AK CHEST 1 VIEW HISTORY: Hypoxemia COMPARISON: 09/01/17 [...] Interface - 09/02/2017 10:34 AM PDT EXAM: AK CHEST 1 | | VIEW HISTORY: HypoxemiaCOMPARISON: [...] | + + + + + | [facility] | [address] | [place] [address] | | | SERVICES, CORE | PARK [...] + + + + + | [facility] | [address] | [place] [address] | | | SERVICES, CORE | VILMA [...] + + + + | PRODUCT | [id number] | | [facility] | | | UNIT [...] + + + + | EXPIRATION | [id number] | | [facility] | | | DATE [...] + + + + | BLOOD | [id number] | | [facility] | | | PRODUCT [...] + + + + + | [facility] | [address] | [place] [address] | | | SERVICES, | [address] [...] [facility] | [address] | [place] [address] | | | SERVICES, CORE | PARK [...] | + + + + + | [facility] | [address] | [place] [address] | | | SERVICES, CORE | PARK [...] + + + + + | [facility] | [address] | [place] [address] | | | NATALEE WORTHINGTON | VILMA [...] | | | LABORATORY | | | GERMAN | | | SERVICES, | | | [...] the MDRD equation recommended by the | [facility] | | National Kidney Disease Education Program. [...] | + + + + + | [facility] | [address] | [place] [address] | | | NATALEE WORTHINGTON | VILMA [...] | + + + + + | [facility] | [address] | [place] [address] | | | NATALEE WORTHINGTON | VILMA [...] is a | 1.14 - 1.32 | [facility] | | | WHOLE BLD | corrected [...] | + + + + + | [facility] | [address] | [place] [address] | | | NATALEE WORTHINGTON | VILMA [...] micropuncture access set was exchanged for a Loginza wire. Under | | | fluoroscopic guidance, a 5 Fr flush catheter was used to evaluate the | | | distal abdominal aorta and pelvic vasculature. A wire and catheter | | | were then used to select the left common and internal iliac arteries | | | from the right POWER AND RECOVERY SHIFT ENGINEER approach. DSA was performed from the [...] | | iliac arteries from the right POWER AND RECOVERY SHIFT ENGINEER approach. DSA was performed from the [...] and internal iliac arteries from the right POWER AND RECOVERY SHIFT ENGINEER approach. DSA was performed from the [...] | | | + +---------+ + + ABJordan-CITLALY TEJADA (09/01/2017 1:36 PM PDT) + + [...] | | | POC | | | [place], POINT | | | | | | [...] [facility] | [address] | [place], [place] | | | [place] POINT OF CARE | [address] | [address] | | | TESTS | | | | + + + + + EXPLORATORY LAPAROTOMY (09/01/2017 12:31 PM PDT) + + + | Narrative | Performed At | + + + | Fidelina Shields MD 09/01/2017 12:42 PM BRIEF OPERATIVE NOTE: | | | Date: 09/01/2017 Author: Fidelina Shields MD | | | Attending Physician: Fidelina Shields MD Electric Bath Attendant(s): Haim Peralta | | | , Vicente Butts MD, [facility] Prior to the | | | beginning [...] case. | | | Fidelina Shields MD Employment Law Attorney Division of Trauma, | | | Critical Care and Acute Care Surgery Office: [phone] Pager: | [phone] | + + + ABG-FULL ABL, [...] [facility] | [address] | [place], [place] | | | [facility] [employer] | [facility] | [address] | | | TESTS | | | [...] [facility] | [address] | [place] [address] | | | SERVICES, NATALEE | PARK [...] - [facility] | [address] | [place], [place] | | | [place] OF [facility] | [address] | [address] | | | TESTS | | | [...] + + + + | PRODUCT | [id number] | | [facility] | | | UNIT [...] + + + + | EXPIRATION | [id number] | | [facility] | | | DATE [...] + + + + | BLOOD | [id number] | | [facility] | | | PRODUCT [...] [facility] | [address] | [place] [address] | | | SERVICES, | [address] [...] + + + + | PRODUCT | [id number] | | [facility] | | | UNIT [...] + + + + | EXPIRATION | [id number] | | [facility] | | | DATE [...] + + + + | BLOOD | [id number] | | [facility] | | | PRODUCT [...] + + + + + | [facility] | [address] | [place] [address] | | | SERVICES, | [address] [...] + + + + | PRODUCT | [id number] | | [facility] | | | UNIT [...] + + + + | EXPIRATION | [id number] | | [facility] | | | DATE [...] + + + + | BLOOD | [id number] | | [facility] | | | PRODUCT [...] + + + + + | [facility] | [address] | [place] [address] | | | SERVICES, | [address] [...] + + + + | PRODUCT | [id number] | | [facility] | | | UNIT [...] + + + + | EXPIRATION | [id number] | | [facility] | | | DATE [...] + + + + | BLOOD | [id number] | | [facility] | | | PRODUCT [...] + + + + + | [facility] | [address] | [place] [address] | | | SERVICES, | [address] [...] + + + + | PRODUCT | [id number] | | [facility] | | | UNIT [...] + + + + | EXPIRATION | [id number] | | [facility] | | | DATE [...] + + + + | BLOOD | [id number] | | [facility] | | | PRODUCT [...] | + + + + + | [facility] | [address] | [place] [address] | | | SERVICES, | [address] [...] + + + + | PRODUCT | [id number] | | [facility] | | | UNIT [...] + + + + | EXPIRATION | [id number] | | [facility] | | | DATE [...] + + + + | BLOOD | [id number] | | [facility] | | | PRODUCT [...] [facility] | [address] | [place] [address] | | | SERVICES, | [address] [...] + + + + | PRODUCT | [id number] | | [facility] | | | UNIT [...] + + + + | EXPIRATION | [id number] | | [facility] | | | DATE [...] + + + + | BLOOD | [id number] | | [facility] | | | PRODUCT [...] [facility] | [address] | [place] [address] | | | SERVICES, | [address] [...] + + + + | PRODUCT | [id number] | | [facility] | | | UNIT [...] + + + + | EXPIRATION | [id number] | | [facility] | | | DATE [...] + + + + | BLOOD | [id number] | | [facility] | | | PRODUCT [...] [facility] | [address] | [place] [address] | | | SERVICES, | [address] [...] + + + + | PRODUCT | [id number] | | [facility] | | | UNIT [...] + + + + | EXPIRATION | [id number] | | [facility] | | | DATE [...] + + + + | BLOOD | [id number] | | [facility] | | | PRODUCT [...] [facility] | [address] | [place] [address] | | | SERVICES, | [address] [...] + + + + | PRODUCT | [id number] | | [facility] | | | UNIT [...] + + + + | EXPIRATION | [id number] | | [facility] | | | DATE [...] + + + + | BLOOD | [id number] | | [facility] | | | PRODUCT [...] [facility] | [address] | [place] [address] | | | SERVICES, | [address] [...] + + + + | PRODUCT | [id number] | | [facility] | | | UNIT [...] + + + + | EXPIRATION | [id number] | | [facility] | | | DATE [...] + + + + | BLOOD | [id number] | | [facility] | | | PRODUCT [...] + + + + + | [facility] | [address] | [place] [address] | | | SERVICES, | [address] [...] + + + + | PRODUCT | [id number] | | [facility] | | | UNIT [...] + + + + | EXPIRATION | [id number] | | [facility] | | | DATE [...] + + + + | BLOOD | [id number] | | [facility] | | | PRODUCT [...] | + + + + + | [facility] | [address] | [place] [address] | | | SERVICES, | [address] [...] + + + + | PRODUCT | [id number] | | [facility] | | | UNIT [...] + + + + | EXPIRATION | [id number] | | [facility] | | | DATE [...] + + + + | BLOOD | [id number] | | [facility] | | | PRODUCT [...] + + + + + | [facility] | [address] | [place] [address] | | | SERVICES, | [address] [...] + + + + | PRODUCT | [id number] | | [facility] | | | UNIT [...] + + + + | EXPIRATION | [id number] | | [facility] | | | DATE [...] + + + + | BLOOD | [id number] | | [facility] | | | PRODUCT [...] [facility] | [address] | [place] [address] | | | SERVICES, | [address] [...] + + + + | PRODUCT | [id number] | | [facility] | | | UNIT [...] + + + + | EXPIRATION | [id number] | | [facility] | | | DATE [...] + + + + | BLOOD | [id number] | | [facility] | | | PRODUCT [...] [facility] | [address] | [place] [address] | | | SERVICES, | [address] [...] + + + + | PRODUCT | [id number] | | [facility] | | | UNIT [...] + + + + | EXPIRATION | [id number] | | [facility] | | | DATE [...] + + + + | BLOOD | [id number] | | [facility] | | | PRODUCT [...] [facility] | [address] | [place] [address] | | | SERVICES, | [address] [...] + + + + | PRODUCT | [id number] | | [facility] | | | UNIT [...] + + + + | EXPIRATION | [id number] | | [facility] | | | DATE [...] + + + + | BLOOD | [id number] | | [facility] | | | PRODUCT [...] [facility] | [address] | [place] [address] | | | SERVICES, | [address] [...] + + + + | PRODUCT | [id number] | | [facility] | | | UNIT [...] + + + + | EXPIRATION | [id number] | | [facility] | | | DATE [...] + + + + | BLOOD | [id number] | | [facility] | | | PRODUCT [...] [facility] | [address] | [place] [address] | | | SERVICES, | [address] [...] + + + + | PRODUCT | [id number] | | [facility] | | | UNIT [...] + + + + | EXPIRATION | [id number] | | [facility] | | | DATE [...] + + + + | BLOOD | [id number] | | [facility] | | | PRODUCT [...] [facility] | [address] | [place] [address] | | | SERVICES, | [address] [...] + + + + | PRODUCT | [id number] | | [facility] | | | UNIT [...] + + + + | EXPIRATION | [id number] | | [facility] | | | DATE [...] + + + + | BLOOD | [id number] | | [facility] | | | PRODUCT [...] [facility]ORATORY | [address] | [place] [address] | | | SERVICES, | [address] [...] + + + + | PRODUCT | [id number] | | [facility] | | | UNIT [...] + + + + | EXPIRATION | [id number] | | [facility] | | | DATE [...] + + + + | BLOOD | [id number] | | [facility] | | | PRODUCT [...] [facility] | [address] | [place] [address] | | | SERVICES, | [address] [...] + + + + | PRODUCT | [id number] | | [facility] | | | UNIT [...] + + + + | EXPIRATION | [id number] | | [facility] | | | DATE [...] + + + + | BLOOD | [id number] | | [facility] | | | PRODUCT [...] + + + + + | [facility] | [address] | [place] [address] | | | SERVICES, | [address] [...] + + + + | PRODUCT | [id number] | | [facility] | | | UNIT [...] + + + + | EXPIRATION | [id number] | | [facility] | | | DATE [...] + + + + | BLOOD | [id number] | | [facility] | | | PRODUCT [...] + + + + + | [facility] | [address] | [place] [address] | | | SERVICES, | [address] [...] + + + + | PRODUCT | [id number] | | [facility] | | | UNIT [...] + + + + | EXPIRATION | [id number] | | [facility] | | | DATE [...] + + + + | BLOOD | [id number] | | [facility] | | | PRODUCT [...] + + + + + | [facility] | [address] | [place] [address] | | | SERVICES, | [address] [...] + + + + | PRODUCT | [id number] | | [facility] | | | UNIT [...] + + + + | EXPIRATION | [id number] | | [facility] | | | DATE [...] + + + + | BLOOD | [id number] | | [facility] | | | PRODUCT [...] [facility] | [address] | [place] [address] | | | SERVICES, | [address] [...] + + + + | PRODUCT | [id number] | | [facility] | | | UNIT [...] + + + + | EXPIRATION | [id number] | | [facility] | | | DATE [...] + + + + | BLOOD | [id number] | | [facility] | | | PRODUCT [...] [facility] | [address] | [place] [address] | | | SERVICES, | [address] [...] + + + + + | [facility] | [address] | [place] [address] | | | SERVICES, CORE | VIL[address] [...] | | | LABORATORY | | | GERMAN | | | SERVICES, | | | [...] [facility] | [address] | [place] [address] | | | SERVICES, CORE | VILMA [...] + + + + + | [facility] | [address] | [place] [address] | | | SERVICES, CORE | [address] [...] - [facility] | [address] | [place], [place] | | | [place] POINT OF CARE | [address] | [address] | | | TESTS | | | | + + + + + X-RAY PORTABLE CHEST 1 VIEW (09/01/2017 9:18 AM PDT) + + | Specimen | + + | | + + + + + | Narrative | Performed At | + + + | EXAM: AK CHEST 1 VIEW HISTORY: Intubated COMPARISON: 08/31/17 [...] Interface - 09/02/2017 1:23 PM PDT EXAM: AK CHEST 1 | | VIEW HISTORY: IntubatedCOMPARISON: [...] Note | + + | Service Account, [employer] In Interface - 09/01/2017 1:40 PM PDT [...] + + + + | PRODUCT | [id number] | | [facility] | | | UNIT [...] + + + + | EXPIRATION | [id number] | | [facility] | | | DATE [...] + + + + | BLOOD | [id number] | | [facility] | | | PRODUCT [...] + + + + + | [facility] | [address] | [place] [address] | | | SERVICES, | [address] [...] + + + + | PRODUCT | [id number] | | [facility] | | | UNIT [...] + + + + | EXPIRATION | [id number] | | [facility] | | | DATE [...] + + + + | BLOOD | [id number] | | [facility] | | | PRODUCT [...] [facility] | [address] | [place] [address] | | | SERVICES, | [address] [...] + + + + | PRODUCT | [id number] | | [facility] | | | UNIT [...] + + + + | EXPIRATION | [id number] | | [facility] | | | DATE [...] + + + + | BLOOD | [id number] | | [facility] | | | PRODUCT [...] [facility] | [address] | [place] [address] | | | SERVICES, | [address] [...] + + + + | PRODUCT | [id number] | | [facility] | | | UNIT [...] + + + + | EXPIRATION | [id number] | | [facility] | | | DATE [...] + + + + | BLOOD | [id number] | | [facility] | | | PRODUCT [...] [facility] | [address] | [place] [address] | | | SERVICES, | [address] [...] + + + + | PRODUCT | [id number] | | [facility] | | | UNIT [...] + + + + | EXPIRATION | [id number] | | [facility] | | | DATE [...] + + + + | BLOOD | [id number] | | [facility] | | | PRODUCT [...] [facility] | [address] | [place] [address] | | | SERVICES, | [address] [...] + + + + | PRODUCT | [id number] | | [facility] | | | UNIT [...] + + + + | EXPIRATION | [id number] | | [facility] | | | DATE [...] + + + + | BLOOD | [id number] | | [facility] | | | PRODUCT [...] [facility] | [address] | [place] [address] | | | SERVICES, | [address] [...] + + + + | PRODUCT | [id number] | | [facility] | | | UNIT [...] + + + + | EXPIRATION | [id number] | | [facility] | | | DATE [...] + + + + | BLOOD | [id number] | | [facility] | | | PRODUCT [...] [facility] | [address] | [place] [address] | | | SERVICES, | [address] [...] + + + + | PRODUCT | [id number] | | [facility] | | | UNIT [...] + + + + | EXPIRATION | [id number] | | [facility] | | | DATE [...] + + + + | BLOOD | [id number] | | [facility] | | | PRODUCT [...] + + + + + | [facility] | [address] | [place] [address] | | | SERVICES, | [address] | | | | TRANSFUSION MEDICINE | | | | + + + + + CT HEAD WO CONTRAST (09/01/2017 8:42 AM PDT) + + | Specimen | + + | | + + + + + | Narrative | Performed At | + + + | EXAM: CT head without contrast HISTORY: Follow-up intracranial | [facility] | | hemorrhage. COMPARISON: Multiple prior head [...] Note | + + | Service Account, [employer] In Interface - 09/01/2017 9:01 AM [...] + + + + | PRODUCT | [id number] | | [facility] | | | UNIT [...] + + + + | EXPIRATION | [id number] | | [facility] | | | DATE [...] + + + + | BLOOD | [id number] | | [facility] | | | PRODUCT [...] | + + + + + | [facility] | [address] | [place] [address] | | | SERVICES, | [address] [...] | + + + + + | [facility] | [address] | [place] [address] | | | SERVICES, CORE | [address] [...] [facility] | [address] | [place] [address] | | | SERVICES, CORE | [address]ARK [...] Discussed with | | | trauma ICU architecture intern by Dr. Yang at 4:38 AM. [...] interspinous ligament is injured.Discussed with trauma ICU architecture intern | | by Dr. Yang at 4:38 AM.I have personally reviewed the images and, if necessary, | | edited the report. I agree with the report as now presented. | |3. Extensive soft tissue edema extending into the cervical and upper thoracic interspinous space, suggestive of interspinous ligament is injured. | | | |Discussed with trauma ICU architecture intern by Dr. Yang at 4:38 AM. [...] | | | LABORATORY | | | [facility] | | | SERVICES, | | | [...] + + | [facility] | [address] | [place] [address] | | | SERVICES, CORE | PARK [...] | + + + + + | [facility] | [address] | [place] [address] | | | SERVICES, CORE | PARK [...] [facility] | [address] | [place] [address] | | | SERVICES, CORE | PARK [...] + + + + + | [facility] | [address] | [place] [address] | | | [facility] | [address] [...] pleural spaced was performed. A 32 size Jordanian chest tube was | | | placed [...] | ventricles. Discussed with the trauma ICU architecture intern at 12:12 AM by | | [...] ventricles.Discussed with | | the trauma ICU architecture intern at 12:[address] Yang.I [...] | | |Discussed with the trauma ICU architecture intern at 12:[address] Yang. [...] [facility] | [address] | [place], [place] | | | [facility] | [address] | [id number] | | | TESTS | | | [...] [facility] | [address] | [place] [address] | | | SERVICES, CORE | PARK [...] [facility] | [address] | [place] [address] | | | NATALEE WORTHINGTON | [address] [...] | | + +---------+ + + | [facility] | | | | | [...] | + + + + + | [facility] | [address] | [place] [address] | | | ELIN, NATALEE | [address] | | | + + + + + X-RAY PORTABLE CHEST 1 VIEW (08/31/2017 7:07 PM PDT) + + | Specimen | + + | | + + + + + | Narrative | Performed At | + + + | STUDY: AK CHEST 1 VIEW HISTORY: Trauma COMPARISON: CT CAP | [facility] | | 08/31/2017 FINDINGS: Endotracheal tube [...] Interface - 09/01/2017 1:44 PM PDT STUDY: AK CHEST 1 | | VIEWHISTORY: TraumaCOMPARISON: CT [...] | | + +---------+ + + | [facility] | | | | | [...] | + + + + + | [facility] | [address] | [place] [address] | | | SERVICES, CORE | [place] [...] Note | + + | Service Account, RadiModify Res In Interface - 08/31/2017 8:22 PM [...] | | + +---------+ + + | [facility] | | | | | VOICE [...] by Dr. Madrigal at 7:10 pm on 5/5/18. Final | | | results differ slightly [...] rib, nondisplaced-Left | | 1st rib fracture, tvefskoqvedb-Kju-yjduabiaz left lateral 8th rib fracture-T12 fracture | [...] Note | + + | Service Account, [employer] Res In Interface - 08/31/2017 8:10 PM [...] [facility] | [address] | [place] [address] | | | SERVICES, | [address] [...] [facility] | [address] | [place] [address] | | | SERVICES, | [address] [...] [facility] | [address] | [place] [address] | | | SERVICES, | [address] [...] [facility] | [address] | [place], [place] | | | GL[facility]IA GENOA [facility] | [address] | [address] | | | TESTS | | | [...] [facility] | [address] | [place], [place] | | | GLORIA GENAO OF [facility] | [address] | [address] | | | TESTS | | | [...] | | POC | | mmol/L | [facility] | | | | | [...] [facility] | [address] | [place], [place] | | | [facility]IA GENAO [facility] | [address] | [address] | | | TESTS | | | [...] - [facility] | [address] | [place], [place] | | | [facility]ORIA GENAO [facility] | [facility] | [address] | | | TESTS | | | [...] + + + + | PRODUCT | [id number] | | [facility] | | | UNIT [...] + + + + | EXPIRATION | [id number] | | [facility] | | | DATE [...] + + + + | BLOOD | [id number] | | [facility] | | | PRODUCT [...] LABORATORY | [address] | [place] [address] | | | SERVICES, | [address] [...] + + + + | PRODUCT | [id number] | | [facility] | | | UNIT [...] + + + + | EXPIRATION | [id number] | | [facility] | | | DATE [...] + + + + | BLOOD | [id number] | | [facility] | | | PRODUCT [...] [facility] | [address] | [place] [address] | | | SERVICES, | [address] [...] + + + + | PRODUCT | [id number] | | [facility] | | | UNIT [...] + + + + | EXPIRATION | [id number] | | [facility] | | | DATE [...] + + + + | BLOOD | [id number] | | [facility] | | | PRODUCT [...] + + + + + | [facility] | [address] | [place] [address] | | | SERVICES, | [address] [...] + + + + | PRODUCT | [id number] | | [facility] | | | UNIT [...] + + + + | EXPIRATION | [id number] | | [facility] | | | DATE [...] + + + + | BLOOD | [id number] | | [facility] | | | PRODUCT [...] | + + + + + | [facility] | [address] | [place] [address] | | | SERVICES, | [address] [...] + + + + | PRODUCT | [id number] | | [facility] | | | UNIT [...] + + + + | EXPIRATION | [id number] | | [facility] | | | DATE [...] + + + + | BLOOD | [id number] | | [facility] | | | PRODUCT [...] + + + + + | [facility] | [address] | [place] [address] | | | SERVICES, | [address] [...] + + + + | PRODUCT | [id number] | | [facility] | | | UNIT [...] + + + + | EXPIRATION | [id number] | | [facility] | | | DATE [...] + + + + | BLOOD | [id number] | | [facility] | | | PRODUCT [...] + + + + + | [facility] | [address] | [place] [address] | | | SERVICES, | [address] [...] + + + + | PRODUCT | [id number] | | [facility] | | | UNIT [...] + + + + | EXPIRATION | [id number] | | [facility] | | | DATE [...] + + + + | BLOOD | [id number] | | [facility] | | | PRODUCT [...] | + + + + + | [facility] | [address] | [place] [address] | | | SERVICES, | [address] [...] + + + + | PRODUCT | [id number] | | [facility] | | | UNIT [...] + + + + | EXPIRATION | [id number] | | [facility] | | | DATE [...] + + + + | BLOOD | [id number] | | [facility] | | | PRODUCT [...] [facility] | [address] | [place] [address] | | | SERVICES, | [address] [...] + + + + + | [facility] | [address] | [place] [address] | | | SERVICES, CORE | [address] [...] | | | LABORATORY | | | [facility] | | | SERVICES, | | | [...] + + + + + | [facility] | [address] | [place] [address] | | | SERVICES, CORE | [address] [...] (2.5 - 3.5) INR APTT | ELIN, NATALEE | | Therapeutic Range: (75 - 120) sec | | | Heparin levels of 0.35 - 0.7 U/mL | | + + + + + + + + | Performing | Address | City/State/Zipcode | Phone Number | | Organization | | | | + + + + + | [facility] | [address] | [place] [address] | | | ELIN, NATALEE | [address] [...] [facility] | [address] | [place] [address] | | | SERVICES, CORE | [address] [...] + + + + + | [facility] | [address] | [place] [address] | | | SERVICES, CORE | [address] [...] + + + + + | [facility] | [address] | [place] [address] | | | SERVICES, CORE | [address] [...]
--- OUTSIDE RECORDS SUMMARY | ~2020-02-06 | XMS | Encounter Summary ---
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 and examined th e patient today with KESHAWN Martin, and agree with the assessement and plan a s outlined in her note. Will consider changing to bolus TF. Plan Gabriel-oconnor tube next week. Chaz Hernandez MD, FACS Internet Architect, Trauma, Critical Care and Acute Care Surgery [...] (or 3 results) - Refreshable Recent Labs 10/04/1728 10/05/17 0838 10/06/17 0104 10/06/17 0607 10/06/17 [...] p atient unable to come out fo RAZOR GRINDER for now Resolved or chronic issues/Plan: #Previous [...] issues, including restraints. Venita Pruitt PA-C [place] [phone] [place] [phone] [facility] [place] [address] [place] [address] [phone] Associated attestation - Em Cunningham MD - 10/17/2017 10:13 AM PDTI was present and rou nded with the Advanced Practice Provider today . I interviewed and examined the patient. I reviewed the history, as documented today. I agree with the ASHLEY assessment and plan. TBI has remained stable. On lovenox. Will continue haldol per psych.. EM CUNNINGHAM MD [facility] [address] [place] [address] [address] [place] [address] Venita Pruitt PA-C - 10/05/2017 8:38 AM [...] p atient unable to come out fo RAZOR GRINDER for now Resolved or chronic issues/Plan: #Previous [...] issues, including restraints. Venita Pruitt PA-C [place] [phone] [place] [phone] [facility] [address] [facility] [address] [phone] Associated attestation - Shlomo Bravo MD - 10/06/2017 7:28 AM PDTFormatting of this note m ight be different from the original. I saw and examined Diogenes Temple ([id number]) with the TRAUMA team on 10/05/2017. I [...] and incen tive spirometry for pulmonary toliet. automotive finance manager for disposition planning and placement. Shlomo Bravo MD Goat Herder Division of Trauma and Critical Care [facility] PA-[facility] - 10/04/2017 6:36 AM PDTFormatting [...] (baseline from previous TBI ) Neck: in [place] collar Respiratory: CTA b.l CV: RRR GI: [...] p atient unable to come out fo RAZOR GRINDER for now Resolved or chronic issues/Plan: #Previous [...] by patient, but wound remains duke n/dry/intact. [place] removed 09/17. #Left hemothorax Chest tube placed [...] issues, including restraints. Venita Pruitt PA-C [place] [phone] [facility] [address] [place] [facility] [phone] Associated attestation - Fidelina Shields MD - [...] and only enteral access. Fidelina Shields MD Internet Architect Division of Trauma, Critical Care and Acute Care Surgery Office: [phone] Pager: [phone] Leonor Torres ACNP - 10/03/2017 3:13 PM [...] (baseline from previous TBI ) Neck: in [place] collar Respiratory: CTA bilaterally, no distress CV: [...] p atient unable to come out fo RAZOR GRINDER for now Resolved or chronic issues/Plan: Previous [...] by patient, but wound remains duke n/dry/intact. [place] removed 09/17. #Left hemothorax Chest tube placed [...] PDTAttending: I saw and examined Diogenes Temple ([id number]) with CB Hair on morning rounds 10/03 and agree with the assessment and plan as outlined in this note and participated in the planning of care. Mental status is slightly better, remains sedated but he is interactive and at least somewh at oriented. Enteral nutrition advancing and, as approaches goal, will turn TPN off. Place ment remains a significant issue. Fidelina Shields MD Internet Architect Division of Trauma, Critical Care and Acute Care Surgery Office: [phone] Pager: [phone] July Harp PA-C - 10/03/2017 12:58 PM [...] the C-collar when in bed then the RAZOR GRINDER when out of bed until 12/01/17. JULY HARP PA-C [facility] [address] [facility] [address] [place] [address] Associated attestation - Magdiel Stock MD - 10/04/2017 6:02 PM PDTI performed a history a nd physical examination of the patient and discussed the management with the advanced practi ce provider, July Harp PA-C. I reviewed the advanced practice provider's note and agree w ith the plan of care as documented. Continue cervical collar and RAZOR GRINDER for 3 months to ensure fracture healing and prevent development of post-fracture cervical kyphosis. Magdiel Stock MD Internet Architect Department of Neurological Surgery [facility] Sherine Sarmeinto AGACN - 10/02/2017 12:54 PM PDTFormatting of [...] (or 3 results) - Refreshable Recent Labs 06/08/14 44210/01/17 0525 10/02/17 0512 WBC 9.17 9.02 12.64* HB 12.0* 12.5* 13.5 HCT 37.8* 38.4* 40.9* PLT 199 189 210 Chemistries: Last 72 Hours (or 3 results) - Refreshable Recent Labs 09/30/1744210/01/1752410/02/17 0510/02/17 0604 10/02/17 1230 NA 140 -- 139 [...] (baseline from previous TBI ) Neck: in [place] collar Respiratory: CTA bilaterally, lungs symmetrical, equal chest wall rise, no retractions CV: RRR GI: non tender, soft, active BS, last BM 09/30 : Patient voiding without difficulty Extremities: no peripheral edema, wiggles toes and toes pink and well perfused Musculoskeletal: 5/5 wedding consultant strength on right, 3/5 wedding consultant strength on left FEN: on TPN, transitioning [...] AMS & delirium - numerous evaluations by WHARF TENDER with trials of PO - now s/p [...] . - C-collar at all times, use RAZOR GRINDER when OOB - Follow-up with Neurosurgery on 10/21 with repeat X-rays #Blunt abdominal trauma #Splenic laceration S/p laparotomies x2. Fascia closed 09/02 Wound vac removed by patient, but wound remains duke n/dry/intact. [place] removed 09/17. #Left hemothorax Chest tube placed [...] will decrease scheduled [place]g [phone] Associated attestation - Fidelina Shields MD - 10/02/2017 4:40 PM PDTAttending: I saw and examined Diogenes Temple ([id number]) with KESHAWN Alexander on mornin g rounds [...] drawn back to midline position. May need jail enteral access , but is ~4 weeks s/p damage control laparotomy and risk is higher now than it will be in 7- 14 days and if swallow is not improving then will place prior to DC Fidelina Shields MD Internet Architect Division of Trauma, Critical Care and Acute Care Surgery Office: [phone] Pager: [phone] Sherine Sarmiento AGACNP - 10/01/2017 7:27 AM [...] (baseline from previous TBI ) Neck: in [place] collar Respiratory: CTA bilaterally, lungs symmetrical, equal chest wall rise, no retractions CV: RRR GI: non tender, soft, active BS, last BM 09/30 : Patient voiding without difficulty Extremities: no peripheral edema, wiggles toes and toes pink and well perfused Musculoskeletal: 5/5 wedding consultant strength on right, 3/5 wedding consultant strength on left FEN: on TPN Heme/ID: [...] AMS & delirium - numerous evaluations by WHARF TENDER with trials of PO - now s/p modified barium swallow x2 which indicates aspiration - continue NPO - WHARF TENDER reports that patient working on tongue strength [...] . - C-collar at all times, use RAZOR GRINDER when OOB - Follow-up with Neurosurgery on 10/21 with repeat X-rays #Blunt abdominal trauma #Splenic laceration S/p laparotomies x2. Fascia closed 09/02 Wound vac removed by patient, but wound remains duke n/dry/intact. [place] removed 09/17. #Left hemothorax Chest tube placed [...] trauma team and [place] [phone] Associated attestation - Fidelina Shields MD - 10/02/2017 4:40 PM PDTAttending: I saw and examined Diogenes Temple ([id number]) with KESHAWN Alexander on mornin g rounds 10/01/17 and agree with the assessment and plan as outlined in this note and partic ipated in the planning of care. Will trial DHT placement today, CT head unchanged. Suspect somnolence is medication side ef fect and, if persistent, may need to wean antipsychotic doses. Fidelina Shields MD Internet Architect Division of Trauma, Critical Care and Acute Care Surgery Office: [phone] Pager: [phone] Christian Kelley PA-C - 09/30/2017 12:21 PM [...] (or 3 results) - Refreshable Recent Labs 09/28/1745709/29/17 0416 09/30/17 0443 WBC 9.21 9.04 9.17 [...] Fixed and dilated on left Neck: in [place] collar Respiratory: CTA bilaterally, lungs symmetrical, equal chest wall rise, no retractions CV: RRR GI: non tender, soft, active BS, last BM 09/30 : Patient voiding without difficulty Extremities: no peripheral edema, wiggles toes and toes pink and well perfused Musculoskeletal: 5/5 wedding consultant strength on right, 3/5 wedding consultant strength on left FEN: on TPN Heme/ID: [...] AMS & delirium - numerous evaluations by WHARF TENDER with trials of PO - now s/p modified barium swallow x2 which indicates aspiration - continue NPO - WHARF TENDER reports that patient working on tongue strength [...] . - C-collar at all times, use RAZOR GRINDER when OOB - Follow-up with Neurosurgery on [...] PDTAttending: I saw and examined Diogenes Temple ([id number]) with Christian Kelley PA-C on morning rounds 09/30 and agree with the assessment and plan as outlined in this note and participated in the planning of care. Mentally slower this morning, but non-focal. Received haldol overnight for sleep. Repeat head CT was unchanged so suspect etiology of slowed responsiveness is the antipsychotic dose . WHARF TENDER believes that, once collar off, may be able to take PO more effectively and thus will hold off on surgical feeding access. TPN is a temporary solution and if patient remains kaye nable will trial DHT tomorrow. Working with psychiatry for medication recommendations. Fidelina Shields MD Internet Architect Division of Trauma, Critical Care and Acute Care Surgery Office: [phone] Pager: [phone] July Harp PA-C - 09/30/2017 8:23 AM PDTBrief Neurosurgery Wound Check: Wound is dry, without erythema, not fluctuant. No acute swelling. Nylon in place. Will plan to follow peripherally for wound checks and remove nylons on 10/09. JULY HARP PA-C [facility] [address] [place] [address] Christian Begum PA-C - 09/29/2017 7:15 AM [...] and EOMs intact to exam Neck: in [place] collar Respiratory: CTA bilaterally, lungs symmetrical, equal [...] AMS & delirium - numerous evaluations by WHARF TENDER with trials of PO - now s/p [...] . - C-collar at all times, use RAZOR GRINDER when OOB - Follow-up with Neurosurgery on [...] PDTAttending: I saw and examined Diogenes Temple ([id number]) with Christian Kelley PA-C on morning rounds 09/29 and agree with the assessment and plan as outlined in this note and participated in the planning of care. Late entry for 09/29/17. Persistent alterations in conscious and dysphagia. Hopefully with ongoing speech therapy a nd when clear to take c-collar off, will improve ability to take PO. While TPN is not an opt imal airconditioning engineer strategy, would prefer not to place surgical feeding tube if possible given r elatively recent damage control laparotomy and high risk of Mr. Temple pulling it out. Have tried DHT several times and it seems to worsen delirium and he pulls it out frequently. Tit ration of haldol in conjunction with psychiatry. Fidelina Shields MD Internet Architect Division of Trauma, Critical Care and Acute Care Surgery Office: [phone] Pager: [phone] Christian Kelley PA-C - 09/28/2017 1:01 PM [...] he said, who, ariel? And then the AGRICULTURAL SCIENCE PROFESSOR helped him make a call to her. [...] and EOMs intact to exam Neck: in [place] collar Respiratory: CTA bilaterally, lungs symmetrical, equal [...] very agitated today. - EKG today with [place] QTc calculated to be 428 - optimize [...] AMS & delirium - numerous evaluations by WHARF TENDER with trials of PO - now s/p [...] . - C-collar at all times, use RAZOR GRINDER when OOB - Follow-up with Neurosurgery on 10/21 with repeat X-rays #Blunt abdominal trauma #Splenic laceration S/p laparotomies x2. Fascia closed 09/02 Wound vac removed by patient, but wound remains duke n/dry/intact. [place] removed 09/17. #Left hemothorax Chest tube placed [...] more toda y. Chaz Hernandez MD, FACS Internet Architect, Trauma, Critical Care and Acute Care Surgery Chaz Hernandez MD - 09/28/2017 10:13 AM PDTTrauma Staff Seen and examined this AM with team. I have concerns abotu behaviour, as he is consistently threatening RN and ancillary staff, even attempting swings. Behavior seems worse at night. I would favor increasing night time Haldol dose, and following EKGs. Chaz Hernandez MD, FACS Internet Architect, Trauma, Critical Care and Acute Care Surgery [...] Dallin Bourgeois MD Neurosurgery PGY1 | Pager #[phone] Christian Begum PA-C - 09/27/2017 7:31 AM [...] able to have a linear conversation briefly WHARF TENDER requesting repeat barium swallow Current meds: I [...] incision healing , suture c/d/I Neck: in [place] GRIND[place] Respiratory: unlabored on room air, lungs symmetrical, [...] AMS & delirium - numerous evaluations by WHARF TENDER with trials of PO - now s/p [...] . - C-collar at all times, use RAZOR GRINDER when OOB - Follow-up with Neurosurgery on [...] for now. EM CUNNINGHAM MD [facility] [address] [facility] [address] [address] [place] [address] Christian Kelley PA-C - 09/26/2017 6:48 AM [...] posterior scalp crani incision c/d/I Neck: in [place] collar Respiratory: unlabored on room air CV: [...] AMS & delirium - numerous evaluations by WHARF TENDER with trials of PO - now s/p [...] . - C-collar at all times, use RAZOR GRINDER when OOB - Follow-up with Neurosurgery on 10/21 with repeat X-rays #Blunt abdominal trauma #Splenic laceration S/p laparotomies x2. Fascia closed 09/02 Wound vac removed by patient, but wound remains duke n/dry/intact. Fernand[place] removed 09/17. #Left hemothorax Chest tube placed [...] and TPN. EM CUNNINGHAM MD [facility] [address] [facility] [address] [place] [address] Christian Kelley PA-C - 09/25/2017 7:49 AM [...] HEENT: EOMs intact to exam Neck: in RAZOR GRINDER brace Respiratory: unlabored on room air CV: [...] AMS & delirium - numerous evaluations by WHARF TENDER with trials of PO - now s/p [...] . - C-collar at all times, use RAZOR GRINDER when OOB - Follow-up with Neurosurgery on 10/21 with repeat X-rays #Blunt abdominal trauma #Splenic laceration S/p laparotomies x2. Fascia closed 09/02 Wound vac removed by patient, but wound remains duke n/dry/intact. [place] removed 09/17. #Left hemothorax Chest tube placed [...] Continue TPN. EM CUNNINGHAM MD [facility] [address] [place] [address] Christian Kelley PA-C - 09/24/2017 11:07 AM [...] with agitation Having difficulty swallowing again - WHARF TENDER to re-eval and obtain barium swallow Current [...] HEENT: EOMs intact to exam Neck: in RAZOR GRINDER brace Respiratory: CTA bilaterally, lungs symmetrical, equal chest wall rise, no retractions CV: RRR GI: non distended, last BM 09/23 : good urine output Extremities: SCD's in place, no peripheral edema, wiggles toes and toes pink and well perfu sed Musculoskeletal: 5/5 strength in bilateral wedding consultant (but with slightly weaker on left) , [...] PRN seroquel dose QHS for insomnia/restlessness at [facility] - Haldol 5mg q12hr [...] likely 2/2 AMS & delirium - Failed WHARF TENDER eval 09/19 & 09/20, made NPO & dobhoff reinserted 09/21 but pulled overnight - Per WHARF TENDER on 09/21, ok for therapeutic pureed with [...] . - C-collar at all times, use RAZOR GRINDER when OOB - Follow-up with Neurosurgery on [...] Start abx for dehiscence. EM CUNNINGHAM MD [place] [id number] [place] [address] Ginette Campos PA-C - 09/24/2017 9:31 AM [...] Intake/Output Summary (Last 24 hours) at 09/24/17 09 Last data filed at 09/24/17 0632 Gross per 24 hour Intake 1412.13 ml Output 2600 ml Net -1187.87 ml Exam: Sleeping, awakens to loud voice and stimulation. Pupils equal. EOMI. Face symmetric. Tongue midline. Sensation: LT sensation intact in all 4 extremities Unable to assess drift. Motor: Digital Marketing Coordinator Bicep Tricep Delt R 5 5 5 [...] or concerns. Ginette Campos PA-C [facility] [address] [place] [address] [address] [facility] stephanie Cleary AGACNP - 09/23/2017 6:32 AM PDT [...] hiscence, draining minimal serosang fluid Neck: in [place]IND[place] brace Respiratory: unlabored on room air CV: [...] PRN seroquel dose QHS for insomnia/restlessness at [facility] - Repeat ECG 09/22 [...] likely 2/2 AMS & delirium - Failed WHARF TENDER eval 09/19 & 09/20, made NPO & dobhoff reinserted 09/21 but pulled overnight - Per WHARF TENDER on 09/21, ok for therapeutic pureed with [...] . - C-collar at all times, use RAZOR GRINDER when OOB - Follow-up with Neurosurgery on 10/21 with repeat X-rays #Blunt abdominal trauma #Splenic laceration S/p laparotomies x2. Fascia closed 09/02 Wound vac removed by patient, but wound remains duke n/dry/intact. [place] removed 09/17. #Left hemothorax Chest tube placed [...] dysphagia & delir ium improves Sherine Sarmiento, [facility] [place] [phone] Dallin Deshpande MD - 09/22/2017 8:03 AM [...] Dallin Bourgeois MD Neurosurgery PGY1 | Pager #[phone] [facility] - 09/22/2017 6:52 AM PDTFormatting of [...] 24hr events: - Therapeutic purees initiated by WHARF TENDER yesterday - Trickle feeds via Dobbhoff, pt pulled Dobbhoff yesterday evening- not replaced - CHYRON OPERATOR called around 2130 for new left facial droop (see separate notes), CT revealed increa se in SDH from 12 to 17mm with no change in midline shift. Exam [facility] - [facility]G and stroke team [...] sluggish. Slight left facial droop Neck: in [place] collar Respiratory: unlabored on room air CV: [...] PRN seroquel dose QHS for insomnia/restlessness at [facility]- - Repeat ECG 09/22 with Q Tc WNL. - Haldol 5mg q12hr prn for severe agitation #Substance abuse, concern for Alcohol withdrawal - CIWA discontinued 09/08, not scoring. - Thiamine & folate started 09/21 #Dysphagia, risk for aspiration #Protein calorie malnutirtion - likely 2/2 AMS & delirium - Failed WHARF TENDER eval 09/19 & 09/20, made NPO & dobhoff reinserted 09/21 but pulled overnight - Per WHARF TENDER on 09/21, ok for therapeutic pureed with [...] . - C-collar at all times, use RAZOR GRINDER when OOB - Follow-up with Neurosurgery on [...] when dysphagia & delirium improves Sherine Sarmiento, [facility] [place] [phone] Associated attestation - Nubia Nieto MD,MPH - [...] Trauma, Critical Care & Acute Care Surgery [facility] [phone] Sami Black Merle - 09/21/2017 10:25 PM [...] in the morning. Plan: -neuro checks; page [phone] for any decline in neurological examination -pain control -Hard C collar at all times and place RAZOR GRINDER prior to mobilizing OOB. Anticipated duration of Collar/RAZOR GRINDER is 12 weeks -repeat CT head for any new decline in neurological exam and page [phone] -NPO at midnight tonight -please hold tonight's planned dose of Lovenox -further recommendations in the morning Sami Black MD, PhD PGY-3 Resident Neurosurgery [id number] signed by Sami Black at 09/21/2017 10:[address] [facility] - 09/21/2017 7:10 AM PDTFormatting of [...] Provena placem ent 24hr events: - Failed WHARF TENDER eval again yest morning, continued NPO - [...] reactive. Dobbhoff tube in place Neck: in [place] collar Respiratory: unlabored on room air CV: [...] likely 2/2 AMS & delirium - Failed WHARF TENDER eval 09/19 & 09/20, made NPO & dobhoff reinserted yesterday - Trickle feeds started this am at 20ml/hr, increase very slowly by 10ml every 12 hrs to go al of 75 due to hx of mesenteric hematomas and previous inability to tolerate TF - Per WHARF TENDER today, ok for therapeutic pureed with nectar [...] . - C-collar at all times, use RAZOR GRINDER when OOB - Follow-up with Neurosurgery on [...] & delirium [place] [phone] Associated attestation - Fidelina Shields MD - 09/21/2017 9:36 PM PDTAttending: I saw and examined Diogenes Temple ([id number]) with KESHAWN Alexander on mornin g rounds [...] enough to re-trial PO. Fidelina Shields MD Internet Architect Division of Trauma, Critical Care and Acute Care Surgery Office: [phone] Pager: [phone] Sherine Sarmiento AGACNP - 09/20/2017 7:41 AM [...] haldol given yesterday afternoon for agitation - WHARF TENDER paged to re-eval in afternoon after concern for aspiration, made NPO by WHARF TENDER - DARNELL SOLANO Current meds: I have [...] right pupil 3 and reactive Neck: in [place] collar Respiratory: unlabored on room air CV: [...] thick/pureed d iet. Made NPO yesterday by WHARF TENDER after concern for aspiration. This is likely 2/2 waxing & wan ing delirium & AMS - WHARF TENDER re-eval today recommend continue NPO d/t overt clinical signs of aspiration - Place Dobbhoff tube and restart feeds, slowly progress to goal - Stop TPN when tolerating tube feeds - WHARF TENDER will follow closely, as his AMS improves [...] . - C-collar at all times, use RAZOR GRINDER when OOB - Follow-up with Neurosurgery on [...] & delirium [place] [phone] Associated attestation - Fidelina Shields MD - 09/20/2017 9:34 PM PDTAttending: I saw and examined Diogenes Temple ([id number]) with KESHAWN Alexander on mornin g rounds [...] dispo planning when able. Fidelina Shields MD Internet Architect Division of Trauma, Critical Care and Acute Care Surgery Office: [phone] Pager: [phone] Mary Medrano MD,MPH - 09/19/2017 6:22 AM [...] downgraded from thin to thick liquids by WHARF TENDER Current meds: I have independently reviewed current [...] intact, small Right fluctuant pseudomeningocele Neck: in [place] collar Respiratory: unlabored on room air CV: [...] DHT on09/19. - Cleared for diet by WHARF TENDER, tolerating purees, 749 Calories yesterday - Restart Calorie count: if taking >700 again will be OK for full po diet, otherwise replac e DHT and restart TF - Stop TPN tomorrow regardless - Still considering repeat CT abdomen/pelvis #Dysphagia DHTreplaced overnight 09/07. TF held due to emesis and possible ileus, aspiration risk. DH T pulled overnight on 09/18 - WHARF TENDER as able Resolved or chronic issues/Plan: #BIG 3 TBI #Right synthetic cranioplasty Neurosurgery consulted. Non-operative management. Last head CT 09/12 stable. Expected pseudo meningocele. Left-sided deficits consistent with baseline. - Stat head CT for any neurologic decline #C7 bilateral lamina fractures #C6-T2 spinous process fractures Neurosurgery consulted. Non-operative management. Upright cervical X-rays completed on 09/14 . - C-collar at all times, use RAZOR GRINDER when OOB - Follow-up with Neurosurgery on 10/21 with repeat X-rays #Blunt abdominal trauma #Splenic laceration S/p laparotomies x2. Fascia closed 09/02 Wound vac removed by patient, but wound remains duke n/dry/intact. [place] removed 09/17. #Left hemothorax Chest tube placed [...] M.D., M.P.H. Neurological Surgery Resident PGY-1 Pager: [phone] Associated attestation - Fidelina Shields MD - 09/19/2017 1:36 PM PDTAttending: I saw and examined Diogenes Temple ([id number]) with the residents on morning rounds 09/19/17 and agree with the assessment and plan as outlined in this note and participated in the plan aashish of care. Improving po intake, will titrate TPN. Plan to DC TPN tomorrow and transition to PO vs PO + TF depending on calorie counts. Once of restraints will begin looking for placement. Fidelina Shields MD Internet Architect Division of Trauma, Critical Care and Acute Care Surgery Office: [phone] Pager: [phone] Mary Medrano MD,MPH - 09/18/2017 6:17 AM [...] fascial closure, [place] placem ent 24hr events: [place] removed yesterday Small emesis overnight, nausea resolved [...] fluctuant pseudomeningocele,Dobhoff tubein p lace Neck: in [place] collar Respiratory: unlabored on room air CV: [...] holding TF - Cleared for diet by WHARF TENDER, tolerating small quantities of purees - Will need repeat CT A/P within 1-2 days #Hypervolemia I&O approaching even. Appears to have been auto-diuresing. - Continue to monitor urine output - Monitor electrolytes, replete prn #Dysphagia DHTreplaced overnight 09/07. TF held due to emesis and possible ileus, aspiration risk. - WHARF TENDER as able #C7 bilateral lamina fractures #C6-T2 spinous process fractures Neurosurgery consulted. Non-operative management. Upright cervical X-rays completed on 09/14 . - C-collar at all times, use RAZOR GRINDER when OOB - Follow-up with Neurosurgery on [...] M.D., M.P.H. Neurological Surgery Resident PGY-1 Pager: [phone] signed by Fidelina Shields MD at 09/19/2017 3:58 PM PDT Associated attestation - Fidelina Shields MD - 09/19/2017 3:58 PM PDTAttending: I saw and examined Diogenes Temple ([id number]) with the residents on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 [address]ARK [...] | | | LABORATORY | | | EQUATORIAL GUINEAN | | | SERVICES, | | | [...] + + + + | [facility] | [address] | [place] [address] | | | SERVICES, CORE | PARK [...] [facility] | [address] | [place] [address] | | | SERVICES, CORE | PARK [...] | | | LABORATORY | | | EQUATORIAL GUINEAN | | | SERVICES, | | | [...] + + + + | [facility] | [address] | [place] [address] | | | ELIN, CORE | VILMA [...] as now presented. Final | | signature: Nubai Batista MD 11/08/2017 2:30 PM Preliminary: Nubia [...] necessary, edited the report. I agree with health system report as now presented. | | | [...] [facility] | [address] | [place] [address] | | | SERVICES, NATALEE | VILMA [...] | | | LABORATORY | | | EQUATORIAL GUINEAN | | | SERVICES, | | | [...] + + + + | [facility] | [address] | [place] [address] | | | SERVICES, CORE | VILMA [...] + + | [facility] | [address] | [place], [place] | | | CARDIOLOGY | [address] | [address] | | + + + + + [...] DEPT | | | IMPRESSION | by: APULO CAVAZOS | | OF | | | [...] DEPT OF | [address] | [place], [place] | | | CARDIOLOGY | [address] | [address] | | + + + + + [...] | | | LABORATORY | | | EQUATORIAL GUINEAN | | | SERVICES, | | | [...] | + + + + + | [facility] | [address] | [place] [address] | | | SERVICES, CORE | PARK [...] LABORATORY | [address] | [place] [address] | | | SERVICES, CORE | [address]ARK [...] + + + + | PRODUCT | [id number] | | [facility] | | | UNIT [...] + + + + | EXPIRATION | [id number] | | [facility] | | | DATE [...] + + + + | BLOOD | [id number] | | [facility] | | | PRODUCT [...] | + + + + + | [facility] | [address] | [place] [address] | | | SERVICES, | [address] [...] + + + + | PRODUCT | [id number] | | [facility] | | | UNIT [...] + + + + | EXPIRATION | [id number] | | [facility] | | | DATE [...] + + + + | BLOOD | [id number] | | [facility] | | | PRODUCT [...] | + + + + + | [facility] | [address] | [place] [address] | | | SERVICES, | [address] [...] [facility] | [address] | [place] [address] | | | NATALEE WORTHINGTON | VILMA [...] + + + + | [facility] | [address] | [place] [address] | | | NATALEE WORTHINGTON | [address]ARK [...] | | | LABORATORY | | | EQUATORIAL GUINEAN | | | SERVICES, | | | [...] | + + + + + | [facility] | [address] [facility] | [place] [address] | | | SERVICES, CORE | [address] | | | + + + + + OPERATION RECORD (11/06/2017 12:27 AM PDT) + + | Procedure Note | + + | Magdiel Stock MD - 11/06/2017 12:27 AM PDT Date of Service: 11/05/2017 Attending | | Surgeon: Magdiel Stock MD Combat Control(s): Rg Aiken MD | | Preoperative Diagnoses: [...] head was placed in a horseshoe head inspector and center marker with his C-collar still | | attached [...] circumferentially around the prior incision, a #1 [place] was used | | to subperiosteally dissect [...] for this encounter.Sonal Nunez, | | [facility] [id number] [place], [place] | | [id number] Dayami, MDJB/MODLDD: 11/05/2017 20:38:01DT: 11/06/2017 | | 00:27:33Job #: [id number] | |HATTIE/DUC | | | | | | /[id number] | + + CT HEAD WO CONTRAST [...] Surgeon: Magdiel | | | MD Dayami Combat Control: Rg Aiken MD Pre-op Diagnosis: | | [...] PGY-4 Neurological Surgery Pager | | | [phone] | | + + + CAPILLARY BLOOD GLUCOSE (NO CHG), POC (11/05/2017 7:11 PM PDT) + +---------+ + + + | Component | Value | Ref Range | Performed | Pathologist | | | | | At | Signature | + +---------+ + + + | BLOOD | 129 (H) | 70 - 99 mg/dL | [facility] - | | | GLUCOSE, | | [...] [facility] | [address] | [place], [place] | | | GLORIA GENAO OF [facility] | [facility] | [address] | | | TESTS | | | [...] [facility] | [address] | [place], [place] | | | GLORIA GENAO OF [facility] | [address] | [address] | | | TESTS | | | [...] Note | + + | Service Account, Lomaki In Interface - 11/05/2017 11:31 AM PDT [...] | + + + + + | [facility] | [address] | [place] [address] | | | SERVICES, NATALEE | VILMA [...] | + + + + + | [facility] | [address] | [place] [address] | | | SERVICES, CORE | [address] [...] | | | LABORATORY | | | EQUATORIAL GUINEAN | | | SERVICES, | | | [...] the MDRD equation recommended by the | [facility] | | National Kidney Disease Education Program. [...] [facility] | [address] | [place] [address] | | | SERVICES, CORE | [address] [...] valves (2.5 - 3.5) INR APTT | [facility], CORE | | Therapeutic Range: (75 - 120) sec | | | Heparin levels of 0.35 - 0.7 U/mL | | + + + + + + + + | Performing | Address | City/State/Zipcode | Phone Number | | Organization | | | | + + + + + | [facility] | [address] | [place] [address] | | | SERVICES, CORE | [address] [...] + + + + | PRODUCT | [id number] | | [facility] | | | UNIT [...] + + + + | EXPIRATION | [id number] | | [facility] | | | DATE [...] + + + + | BLOOD | [id number] | | [facility] | | | PRODUCT [...] | + + + + + | [facility] | [address] | [place] [address] | | | SERVICES, | [address] [...] + + + + | PRODUCT | [id number] | | [facility] | | | UNIT [...] + + + + | EXPIRATION | [id number] | | [facility] | | | DATE [...] + + + + | BLOOD | [id number] | | [facility] | | | PRODUCT [...] | + + + + + | [facility] | [address] | [place] [address] | | | SERVICES, | [address] [...] [facility] | [address] | [place] [address] | | | SERVICES, CORE | PARK [...] [facility] | [address] | [place] [address] | | | SERVICES, | [address] [...] [facility] | [address] | [place] [address] | | | SERVICES, | [address] [...] | + + + + + | [facility] | [address] | [place] [address] | | | SERVICES, CORE | PARK [...] DEPT OF | [address] | [place], [place] | | | CARDIOLOGY | [address] | [address] | | + + + + + [...] [facility] | [address] | [place] [address] | | | SERVICES, CORE | VILMA [...] + + + + | [facility] | [address] | [place] [address] | | | NATALEE WORTHINGTON | VILMA [...] + | [facility] - | [address] | [place] [address] | | | [place] | | | [...] [facility] | [address] | [place] [address] | | | NATALEE WORTHINGTON | VILMA [...] | + + + + + | [facility] | [address] [facility] | [place] [address] | | | SERVICES, CORE | PARK [...] | | | LABORATORY | | | EQUATORIAL GUINEAN | | | SERVICES, | | | [...] equation recommended by the | [facility] | | National Kidney Disease Education Program. [...] + + + + | [facility] | [address] | [place] [address] | | | SERVICES, CORE | PARK [...] [facility] | [address] | [place] [address] | | | SERVICES, CORE | PARK [...] [facility] | [address] | [place] [address] | | | NATALEE WORTHINGTON | VILMA [...] | | | LABORATORY | | | EQUATORIAL GUINEAN | | | SERVICES, | | | [...] | + + + + + | [facility] | [address] | [place] [address] | | | SERVICES, CORE | PARK [...] + + + + | [facility] | [address] | [place] [address] | | | SERVICES, CORE | VILMA [...] | | | LABORATORY | | | EQUATORIAL GUINEAN | | | SERVICES, | | | [...] equation recommended by the | [facility] | | National Kidney Disease Education Program. [...] [facility] | [address] | [place] [address] | | | SERVICES, CORE | VILMA [...] DEPT | | | IMPRESSION | by: GABRIEAL VANN | | OF | | | [...] DEPT OF | [address] | [place], [place] | | | CARDIOLOGY | [address] | [address] | | + + + + + [...] | + + + + + | [facility] | [address] | [place] [address] | | | SERVICES, CORE | VILMA [...] | | | LABORATORY | | | EQUATORIAL GUINEAN | | | SERVICES, | | | [...] + + + + | [facility] | [address] | [place] [address] | | | SERVICES, CORE | [address] | | | + + + + + CT STEREOTACTIC HEAD WO CONTRAST (10/31/2017 5:58 PM PDT) + + | Specimen | + + | | + + + + + | Narrative | Performed At | + + + | EXAM: CT HEAD WITHOUT CONTRAST HISTORY: Surgical planning for | [facility] | | upcoming cranioplasty. History of multiple [...] Note | + + | Service Account, Maraquia Res In Interface - 10/31/2017 8:22 PM [...] [facility] DEPT OF | [address] [facility] | [place], [place] | | | CARDIOLOGY | [address] | [address] | | + + + + + [...] | | | LABORATORY | | | EQUATORIAL GUINEAN | | | SERVICES, | | | [...] equation recommended by the | [facility] | | National Kidney Disease Education Program. [...] + + + + | [facility] | [address] | [place] [address] | | | SERVICES, CORE | PARK [...] [facility] | [address] | [place] [address] | | | NATALEE WORTHINGTON | VILMA [...] - [facility] | [address] | [place], [place] | | | [facility] | [address] | [address] | | | TESTS | | | [...] [facility] | [address] | [place] [address] | | | SERVICES, [facility] [...] | | | LABORATORY | | | EQUATORIAL GUINEAN | | | SERVICES, | | | [...] the MDRD equation recommended by the | [facility] | | National Kidney Disease Education Program. [...] + + + + | [facility] | [address] | [place] [address] | | | NATALEE WORTHINGTON | VILMA [...] Note | + + | Service Account, Lomaki In Interface - 10/29/2017 12:13 PM PDT [...] [facility] | [address] | [place], [place] | | | [facility] | [address] | [address] | | | TESTS | | | [...] | + + + + + | [facility] | [address] | [place] [address] | | | SERVICES, CORE | PARK [...] | | | LABORATORY | | | EQUATORIAL GUINEAN | | | SERVICES, | | | [...] + + + + | [facility] | [address] | [place] [address] | | | SERVICES, CORE | VILMA [...] 70 - 99 mg/dL | [facility] - | | | GLUCOSE, | | [...] [facility] | [address] | [place], [place] | | | [facility] | [address] | [address] | | | TESTS | | | [...] DEPT OF | [address] | [place], [place] | | | CARDIOLOGY | [address] | [address] | | + + + + + CAPILLARY BLOOD GLUCOSE (NO CHG), POC (10/28/2017 12:00 PM PDT) + +---------+ + + + | Component | Value | Ref Range | Performed | Pathologist | | | | | At | Signature | + +---------+ + + + | BLOOD | 141 (H) | 70 - 99 mg/dL | [facility] - | | | GLUCOSE, | | [...] [facility] | [address] | [place], [place] | | | [facility] | [address] | [address] | | | TESTS | | | [...] [facility] | [address] | [place], [place] | | | [facility] | [facility] | [address] | | | TESTS | | | [...] + + + + | [facility] | [address] [facility] | [place] [address] | | | NATALEE WORTHINGTON | VILMA [...] + | [facility] - | [address] | [place] [address] | | | [place] | | | [...] [facility] | [address] | [place] [address] | | | NATALEE WORTHINGTON | VILMA [...] | + + + + + | [facility] | [address] | [place] [address] | | | SERVICES, CORE | PARK [...] [facility] | [address] | [place] [address] | | | SERVICES, CORE | PARK [...] | | | LABORATORY | | | EQUATORIAL GUINEAN | | | SERVICES, | | | [...] the MDRD equation recommended by the | [facility] | | National Kidney Disease Education Program. [...] + + + + | [facility] | [address] [facility] | [place] [address] | | | NATALEE WORTHINGTON | VILMA [...] + + + + | [facility] | [address] | [place] [address] | | | SERVICES, NATALEE | PARK [...] [facility] | [address] | [place], [place] | | | [facility] | [facility] | [address] | | | TESTS | | | [...] 70 - 99 mg/dL | [facility] - | | | GLUCOSE, | | [...] + + + | [facility] | [address] | [place], [place] | | | [facility] | [address] | [address] | | | TESTS | | | [...] Note | + + | Service Account, Lomaki In Interface - 10/28/2017 9:21 AM PDT [...] At | + + + | EXAM: WA CHEST PICC LINE CHECK HISTORY: picc done [...] Interface - 10/27/2017 6:29 PM PDT EXAM: WA CHEST | | PICC LINE CHECK HISTORY: [...] and TPN Procedure | | | location: Unit:[facility] Room: 4 Providers: Attending name: [...] correct | | | patient, procedure, equipment, litigation support analyst and site/side marked as | [...] vein. Catheter lot number: | | | [id number] with a length of 55 cm was [...] [facility] | [address] | [place], [place] | | | [facility] | [address] | [address] | | | TESTS | | | [...] DEPT OF | [address] | [place], [place] | | | CARDIOLOGY | [address] | [address] | | + + + + + [...] [facility] | [address] | [place], [place] | | | [facility] | [address] | [address] | | | TESTS | | | [...] + + + + | [facility] | [address] | [place] [address] | | | SERVICES, NATALEE | VILMA [...] | | | LABORATORY | | | EQUATORIAL GUINEAN | | | SERVICES, | | | [...] | + + + + + | [facility] | [address] | [place] [address] | | | SERVICES, CORE | VILMA [...] [facility] | [address] | [place], [place] | | | [facility] | [address] | [address] | | | TESTS | | | [...] [facility] | [address] | [place], [place] | | | [facility] | [facility] | [address] | | | TESTS | | | [...] 70 - 99 mg/dL | [facility] - | | | GLUCOSE, | | [...] [facility] | [address] | [place], [place] | | | [facility] | [address] | [address] | | | TESTS | | | [...] [facility] | [address] | [place] [address] | | | SERVICES, CORE | PARK [...] | | | LABORATORY | | | EQUATORIAL GUINEAN | | | SERVICES, | | | [...] + + + + | [facility] | [address] | [place] [address] | | | NATALEE WORTHINGTON | VILMA [...] 70 - 99 mg/dL | [facility] - | | | GLUCOSE, | | [...] [facility] | [address] | [place], [place] | | | [facility] | [address] | [address] | | | TESTS | | | [...] | | | LABORATORY | | | EQUATORIAL GUINEAN | | | SERVICES, | | | [...] + + + + | [facility] | [address] | [place] [address] | | | SERVICES, CORE | VILMA [...] 87 | 70 - 99 mg/dL | [facility] - | | | GLUCOSE, | | [...] [facility] | [address] | [place], [place] | | | [facility] | [address] | [address] | | | TESTS | | | [...] + + | [facility] OF | [address] | [place], [place] | | | CARDIOLOGY | [address] | [address] | | + + + + + [...] | [facility] | [address] | [place], [place] | | | [facility] | [facility] | [address] | | | TESTS | | | [...] DEPT OF | [address] | [place], [place] | | | CARDIOLOGY | [address] | [address] | | + + + + + [...] | + + + + + | [facility] | [address] | [place] [address] | | | SERVICES, CORE | VILMA [...] + | [facility] - | [address] | [place] [address] | | | [place] | | | | + + + [...] | + + + + + | [facility] | [address] | [place] [address] | | | SERVICES, CORE | VILMA [...] [facility] | [address] | [place] [address] | | | SERVICES, CORE | PARK [...] [facility] | [address] | [place] [address] | | | NATALEE WORTHINGTON | VILMA [...] [facility] | [address] | [place] [address] | | | SERVICES, CORE | PARK [...] | + + + + + | [facility] | [address] | [place] [address] | | | SERVICES, CORE | VILMA [...] [facility] | [address] | [place] [address] | | | SERVICES, CORE | PARK [...] | + + + + + | [facility] | [address] | [place] [address] | | | ELIN, NATALEE | VILMA [...] [facility] | [address] | [place] [address] | | | SERVICES, CORE | PARK [...] [facility] | [address] | [place] [address] | | | SERVICES, CORE | PARK [...] [facility] | [address] | [place] [address] | | | SERVICES, CORE | PARK [...] | | | LABORATORY | | | EQUATORIAL GUINEAN | | | SERVICES, | | | [...] equation recommended by the | [facility] | | National Kidney Disease Education Program. [...] + + + + | [facility] | [address] | [place] [address] | | | NATALEE WORTHINGTON | VILMA [...] | | | correct patient, procedure, equipment, litigation support analyst and site/side | | | [...] | area Basilic vein. Catheter lot number: [id number] with a length of 55 | | [...] At | + + + | EXAM: WA CHEST 1 VIEW HISTORY: PICC placed-pt ready. [...] Interface - 10/24/2017 3:43 PM PDT EXAM: WA CHEST 1 | | VIEW HISTORY: PICC [...] + + | [facility] | [address] [facility] | [place], [place] | | | [facility] | [facility] | [address] | | | TESTS | | | [...] | | Surgical Critical Care, PGY7 Pager: [phone] | | + + + CAPILLARY BLOOD [...] [facility] | [address] | [place], [place] | | | [facility] | [address] | [address] | | | TESTS | | | [...] [facility] | [address] | [place], [place] | | | [facility] | [address] | [address] | | | TESTS | | | [...] | | | LABORATORY | | | EQUATORIAL GUINEAN | | | SERVICES, | | | [...] | + + + + + | [facility] | [address] | [place] [address] | | | SERVICES, NATALEE | VILMA [...] [facility] | [address] | [place] [address] | | | ELIN, NATALEE | PARK [...] [facility] | [address] | [place], [place] | | | [facility] | [address] | [address] | | | TESTS | | | [...] | + + + + + | [facility] | [address] [facility] | [place] [address] | | | SERVICES, CORE | PARK [...] | | | LABORATORY | | | EQUATORIAL GUINEAN | | | SERVICES, | | | [...] | + + + + + | [facility] | [address] [facility] | [place] [address] | | | SERVICES, CORE | PARK [...] + + + + | QTC-SAURABHTT | 452 | ms | [facility] [...] + + | [facility] | [address] | [place], [place] | | | CARDIOLOGY | [address] | [address] | | + + + + + IR GASTROSTOMY TUBE EXCHANGE (10/22/2017 2:42 PM PDT) + + | Specimen | + + | | + + + + + | Narrative | Performed At | + + + | Procedure: Gastrostomy tube exchange Primary attending | [facility] | | greige goods examiner: Shade Nix M.D. Preoperative diagnosis: | RADIOLOGY VOICE | | Malfunctioning Gastrostomy tube Postoperative diagnosis: Same | RECOGNITION | | Operations: Operation 1. Removal of existing Gastrostomy tube | | | over a guide wire Operation 2. Placement of 24 Qatari GABRIEL | | | gastrostomy over guide [...] a stiff glide wire the new 24 Qatari gastrostomy tube was | | | inserted. [...] Procedure: | | Gastrostomy tube exchangePrimary attending greige goods examiner: Shade Nix, | | BrynPreoperative diagnosis: Malfunctioning Gastrostomy tubePostoperative diagnosis: | | SameOperations:Operation 1. Removal of existing Gastrostomy tube over a guide | | wireOperation 2. Placement of 24 Qatari GABRIEL gastrostomy over guide wireNo sedation was [...] glide wire the | | new 24 Qatari gastrostomy tube was inserted. The position of [...] stiff g lide wire the new 24 Qatari | |gastrostomy tube was inserted. The position [...] Note | + + | Service Account, Maraquia Res In Interface - 10/22/2017 10:34 AM [...] + + + + | QTC-BABRAYDONTT | 448 | ms | [facility] [...] + | [facility] | [address] | [place], [place] | | | CARDIOLOGY | [address] | [address] | | + + + + + [...] + + + + | [facility] | [address] [facility] | [place] [address] | | | SERVICES, NATALEE | VILMA [...] | | | LABORATORY | | | EQUATORIAL GUINEAN | | | SERVICES, | | | [...] | + + + + + | [facility] | [address] | [place] [address] | | | SERVICES, CORE | PARK [...] + + | [facility] | [address] | [place], [place] | | | CARDIOLOGY | [address] | [address] | | + + + + + [...] | | | LABORATORY | | | EQUATORIAL GUINEAN | | | SERVICES, | | | [...] | + + + + + | [facility] | [address] | [place] [address] | | | SERVICES, CORE | VILMA [...] + + + + | [facility] | [address] | [place] [address] | | | SERVICES, CORE | [address] | | | + + + + + 12 LEAD ECG (10/19/2017 12:23 PM PDT) + + + + + + | Component | Value | Ref Range | Performed | Pathologist | | | | | At | Signature | + + + + + + | VENTRICULAR | 53 | bpm | [facility] | | | RATE | | [...] GE[facility] OF | [address] | [place], [place] | | | CARDIOLOGY | [address] | [address] | | + + + + + [...] + + + + | [facility] | [address] | [place] [address] | | | SERVICES, CORE | VILMA [...] | | | LABORATORY | | | EQUATORIAL GUINEAN | | | SERVICES, | | | [...] + + + + | [facility] | [address] | [place] [address] | | | SERVICES, CORE | [address] | | | + + + + + 12 LEAD ECG (10/17/2017 9:34 AM PDT) + + + + + + | Component | Value | Ref Range | Performed | Pathologist | | | | | At | Signature | + + + + + + | VENTRICULAR | 58 | bpm | [facility] | | | RATE | | [...] + + + + | [facility] OF | [address] [facility] | [place], [place] | | | CARDIOLOGY | [address] | [address] | | + + + + + [...] | | | LABORATORY | | | EQUATORIAL GUINEAN | | | SERVICES, | | | [...] [facility] | [address] | [place] [address] | | | SERVICES, CORE | PARK [...] [facility] | [address] | [place] [address] | | | SERVICES, CORE | VILMA [...] DEPT OF | [address] | [place], [place] | | | CARDIOLOGY | [address] | [address] | | + + + + + [...] | | | LABORATORY | | | EQUATORIAL GUINEAN | | | SERVICES, | | | [...] equation recommended by the | [facility] | | National Kidney Disease Education Program. [...] [facility] | [address] | [place] [address] | | | SERVICES, CORE | PARK [...] | + + + + + | [facility] | [address] | [place] [address] | | | SERVICES, CORE | VILMA [...] | | OF | | | | 06-19-2018 20:01:12 | | CARDIOLOGY | | + [...] DEPT OF | [address] | [place], [place] | | | CARDIOLOGY | [address] | [address] | | + + + + + [...] [facility] | [address] | [place], [place] | | | [facility] | [address] | [address] | | | TESTS | | | [...] [facility] | [address] | [place] [address] | | | NATALEE WORTHINGTON | VILMA [...] [facility] | [address] | [place], [place] | | | [facility] | [address] | [address] | | | TESTS | | | [...] + + + + | [facility] OF | [address] | [place], [place] | | | CARDIOLOGY | [address] | [address] | | + + + + + [...] [facility] | [address] | [place] [address] | | | SERVICES, CORE | PARK [...] | | | LABORATORY | | | EQUATORIAL GUINEAN | | | SERVICES, | | | [...] | + + + + + | [facility] | [address] [facility] | [place] [address] | | | NATALEE WORTHINGTON | PARK [...] + + + + | [facility] | [address] | [place] [address] | | | SERVICES, CORE | PARK [...] [facility] | [address] | [place], [place] | | | [facility] | [address] | [address] | | | TESTS | | | [...] [facility] | [address] | [place], [place] | | | [facility] | [address] | [address] | | | TESTS | | | [...] + + + + | [facility] | [address] [facility] | [place] [address] | | | SERVICES, NATALEE | VILMA [...] | | | LABORATORY | | | EQUATORIAL GUINEAN | | | SERVICES, | | | [...] | + + + + + | [facility] | [address] | [place] [address] | | | SERVICES, CORE | [address] | | | + + + + + OPERATION RECORD (10/12/2017 8:50 PM PDT) + + | Procedure Note | + + | Pilar Cotto MD - 10/12/2017 8:50 PM PDT Date of Service: 10/12/2017 | | Attending Surgeon: Chaz Hernandez MD Combat Control(s): Randell Dixon M.D., | | fellow. George [...] saline. We then | | placed a 19-Qatari drain deep into the abscess cavity, tracking [...] 10/12/2017 19:50:06DT: 10/12/2017 20:50:54Job #: | | [id number] | + + X-RAY PORTABLE CHEST 1 VIEW (10/12/2017 7:50 PM PDT) + + | Specimen | + + | | + + + + + | Narrative | Performed At | + + + | EXAM: WA CHEST 1 VIEW HISTORY: Evaluate endotracheal tube [...] Interface - 10/13/2017 9:04 AM PDT EXAM: WA CHEST 1 | | VIEW HISTORY: Evaluate [...] [facility] | [address] | [place], [place] | | | [facility] | [address] | [address] | | | TESTS | | | [...] Richardson | | MD Dmitriy Dictation initiated: Dea [...] [facility] | [address] | [place] [address] | | | SERVICES, CORE | PARK [...] | | | LABORATORY | | | EQUATORIAL GUINEAN | | | SERVICES, | | | [...] equation recommended by the | [facility] | | National Kidney Disease Education Program. [...] [facility] | [address] | [place] [address] | | | SERVICES, CORE | PARK [...] + + + + | [facility] | [address] | [place] [address] | | | NATALEE WORTHINGTON | VILMA [...] + + + + | QTC-BAZEJOSE | 489 | ms | [facility] [...] DEPT OF | [address] | [place], [place] | | | CARDIOLOGY | [address] | [address] | | + + + + + [...] DEPT OF | [address] | [place], [place] | | | CARDIOLOGY | [facility] | [address] | | + + + + + [...] [facility] | [address] | [place] [address] | | | SERVICES, CORE | PARK [...] [facility] | [address] | [place] [address] | | | SERVICES, CORE | PARK [...] | | | LABORATORY | | | E[facility]ATORIAL GUINEAN | | | SERVICES, | | | [...] equation recommended by the | [facility] | | National Kidney Disease Education Program. [...] + + + + | [facility] | [address] [facility] | [place] [address] | | | NATALEE WORTHINGTON | [address] | | | + + + + + PROCEDURE NOTE (10/10/2017 10:00 PM PDT) + + + | Narrative | Performed At | + + + | Darius Link MD 10/12/2017 11:11 AM OPERATIVE REPORT | | | DATE OF OPERATION: 10/10/2017 ATTENDING SURGEON: 1. Dr. Hernandez | | | ELECTRICIAN OFFICE: 1. Darius Link MD INDICATIONS: Dysphagia | | | and need for jail nutrition access PREOPERATIVE DIAGNOSIS: | | | 1.Dysphagia and need for jail nutrition access | | | POSTOPERATIVE DIAGNOSIS: [...] | | | [place] [id number] Chief Resident | | | Neurosurgery | [...] | + + + + + | [facility] | [address] [facility] | [place] [address] | | | SERVICES, CORE | VILMA [...] | | | LABORATORY | | | EQUATORIAL GUINEAN | | | SERVICES, | | | [...] + + + + | [facility] | [address] | [place] [address] | | | SERVICES, CORE | PARK [...] LABORATORY | | | | | | ELIN | | | | | | NATALEE [...] | [facility] | [address] | [place] [address] | | | SERVICES, [facility] | [place]MA DAVE | | | + + + + + OPERATION RECORD (10/10/2017 12:40 PM PDT) + + | Procedure Note | + + | Magdiel Stock MD - 10/10/2017 12:40 PM PDT Date of Service: 10/10/2017 Attending | | Surgeon: Magdiel Stock MD Combat Control(s): Cecilia Jackson, | | . Preoperative Diagnoses: [...] This is a 67-year-old male. Please see [facility] for full details. He | | was [...] note for this encounter.Sonal Nunez MDSA[facility] [id number] | | [place] [phone] Orina, MDFAH/MODLDD: | | 10/10/2017 11:52:15DT: 10/10/2017 12:40:41Job #: [id number] | | | | | |I was present for the critical portions of the procedure as described in the note for this encounter. | | | |Magdiel Stock MD | | | |Magdiel Stock MD | |[address] | |[address] [facility] | |[facility] | |[place] [address] | |[phone] | | | | | |Magdiel Stock MD | |FAH/MODL | | | | | | /[id number] | + + X-RAY ABDOMEN 1 VIEW [...] + | [facility] | [address] | [place] [address] | | | [place] | | | | + + + [...] | + + + + + | [facility] - | [address] | [place] [address] | | | [place] | | | | + + + [...] Gram Stain: No squamous epithelial cells | [place] | | Many polymorphonuclear cells No organisms seen | | + + + + + + + + | Performing | Address | City/State/Zipcode | Phone Number | | Organization | | | | + + + + + | [facility] | [address] | [place] [address] | | | [place] | | | | + + + [...] detected | [facility] - | | | [place] | + + + + + + + + | Performing | Address | City/State/Zipcode | Phone Number | | Organization | | | | + + + + + | [facility] | [address] | [place] [address] | | | [place] | | | | + + + [...] + | [facility] | [address] | [place] [address] | | | [place] | | | [...] Gram Stain: No squamous epithelial cells | [place] | | Many polymorphonuclear cells No organisms seen | | + + + + + + + + | Performing | Address | City/State/Zipcode | Phone Number | | Organization | | | | + + + + + | [facility] | [address] | [place] [address] | | | [place] | | | | + + + [...] + | [facility] | [address] | [place] [address] | | | [place] | | | [...] Gram Stain: No squamous epithelial cells | [facility] | | Few polymorphonuclear cells No organisms seen | | + + + + + + + + | Performing | Address | City/State/Zipcode | Phone Number | | Organization | | | | + + + + + | [facility] | [address] | [place] [address] | | | [facility] | | | | + + [...] No squamous epithelial cells No polymorphonuclear | [facility] - | | cells No organisms seen | [place] | + + + + + + + + | Performing | Address | City/State/Zipcode | Phone Number | | Organization | | | | + + + + + | [facility] | [address] | [place] [address] | | | [place] | | | [...] + | [facility] | [address] | [place] [address] | | | [place] | | | [...] + | [facility] | [address] | [place] [address] | | | [facility] | | | | + [...] detected | [facility] - | | | [place] | + + + + + + + + | Performing | Address | City/State/Zipcode | Phone Number | | Organization | | | | + + + + + | [facility] | [address] | [place] [address] | | | [facility] | | | | + + [...] | + + + + + | [facility] | [address] | [place] [address] | | | [place] | | | | + + + [...] + | [facility] | [address] | [place] [address] | | | [place] | | | [...] + | [facility] | [address] | [place] [address] | | | [place] | | | | + + + [...] + | [facility] | [address] | [place] [address] | | | [place] | | | [...] + | [facility] | [address] | [place] [address] | | | [place] | | | | + + + [...] + | [facility] | [address] | [place] [address] | | | [place] | | | [...] 8:22 | | | AM Preliminary: Shun Caripo MD Dictation initiated: Shun | | | [...] 10/10/2017 8:22 AM | | Preliminary: Shun Crapio MD Dictation initiated: Shun Carpio MD 10/10/2017 [...] [facility] | [address] | [place] [address] | | | SERVICES, CORE | PARK [...] + + + + | [facility] | [address] | [place] [address] | | | SERVICES, CORE | PARK [...] [facility] | [address] | [place] [address] | | | SERVICES, CORE | PARK [...] | | | LABORATORY | | | EQUATORIAL GUINEAN | | | SERVICES, | | | [...] | + + + + + | [facility] | [address] | [place] [address] | | | NATALEE WORTHINGTON | VILMA [...] DEPT OF | [address] | [place], [place] | | | CARDIOLOGY | [address] | [address] | | + + + + + [...] + + + + | PRODUCT | [id number] | | [facility] | | | UNIT [...] + + + + | EXPIRATION | [id number] | | [facility] | | | DATE [...] + + + + | BLOOD | [id number] | | [facility] | | | PRODUCT [...] | + + + + + | [facility] | [address] | [place] [address] | | | SERVICES, | [address] [...] + + + + | PRODUCT | [id number] | | [facility] | | | UNIT [...] + + + + | EXPIRATION | [id number] | | [facility] | | | DATE [...] + + + + | BLOOD | [id number] | | [facility] | | | PRODUCT [...] | + + + + + | [facility] | [address] | [place] [address] | | | SERVICES, | [address] [...] [facility] | [address] | [place] [address] | | | SERVICES, | [address] [...] [facility] | [address] | [place] [address] | | | SERVICES, | [address] [...] | + + + + + | [facility] | [address] | [place] [address] | | | SERVICES, | [address] [...] | + + + + + | [facility] | [address] | [place] [address] | | | SERVICES, CORE | VILMA [...] + + + + | [facility] | 457 | ms | [facility] [...] + | [facility] | [address] | [place], [place] | | | CARDIOLOGY | [address] | [address] | | + + + + + [...] Note | + + | Service Account, Maraquia Res In Interface - 10/08/2017 10:47 AM [...] [facility] | [address] | [place], [place] | | | GLORIA GENAO OF GM | [facility] | [address] | | | TESTS | | | [...] + + + + | [facility] | [address] | [place] [address] | | | SERVICES, CORE | [address] | | | + + + + + MAGNESIUM, PLASMA (10/08/2017 6:00 AM PDT) + +-------+ + + + | Component | Value | Ref Range | Performed | Pathologist | | | | | At | Signature | + +-------+ + + + | MAGNESIUM,P | 2.2 | 1.6 - 2.6 mg/dL | [facility] | | | LASMA | | | [...] [facility] | [address] | [place] [address] | | | SERVICES, NATALEE | VILMA [...] | | | LABORATORY | | | EQUATORIAL GUINEAN | | | SERVICES, | | | [...] + + + + | [facility] | [address] [facility] | [place] [address] | | | SERVICES, CORE | VILMA [...] [facility] | [address] | [place], [place] | | | GLORIA GENAO OF CARE | [address] | [address] | | | TESTS | | | [...] [facility] | [address] | [place], [place] | | | GLORIA GENAO OF GM | [address] | [address] | | | TESTS | | | [...] [facility] | [address] | [place], [place] | | | [facility] | [address] | [address] | | | TESTS | | | [...] [facility] | [address] | [place], [place] | | | HILL, POINT OF CARE | [address] | [address] | | | TESTS | | | [...] [facility] | [address] | [place], [place] | | | GLORIA GENAO OF [facility] | [address] | [address] | | | TESTS | | | [...] + + + + | [facility] | [address] [facility] | [place] [address] | | | NATALEE WORTHINGTON | VILMA [...] | + + + + + | [facility] | [address] | [place] [address] | | | SERVICES, CORE | PARK [...] | | | LABORATORY | | | EQUATORIAL GUINEAN | | | SERVICES, | | | [...] + + + + | [facility] | [address] | [place] [address] | | | SERVICES, CORE | VILMA [...] | [facility] | [address] | [place], [place] | | | GLORIA GENAO OF GM | [address] | [address] | | | TESTS | | | [...] [facility] | [address] | [place], [place] | | | [facility] | [address] | [address] | | | TESTS | | | [...] DEPT OF | [address] | [place], [place] | | | CARDIOLOGY | [address] | [address] | | + + + + + CAPILLARY BLOOD GLUCOSE (NO CHG), POC (10/06/2017 12:03 PM PDT) + +-------+ + + + | Component | Value | Ref Range | Performed | Pathologist | | | | | At | Signature | + +-------+ + + + | BLOOD | 87 | 70 - 99 mg/dL | [facility] - | | | GLUCOSE, | | [...] [facility] | [address] | [place], [place] | | | [facility] | [address] | [address] | | | TESTS | | | [...] + + + + | [facility] | [address] | [place] [address] | | | NATALEE WORTHINGTON | VILMA [...] + + + + | [facility] | [address] | [place] [address] | | | NATALEE WORTHINGTON | VILMA [...] | | | LABORATORY | | | EQUATORIAL GUINEAN | | | SERVICES, | | | [...] + + + + | [facility] | [address] | [place] [address] | | | SERVICES, CORE | PARK [...] 70 - 99 mg/dL | [facility] - | | | GLUCOSE, | | [...] [facility] | [address] | [place], [place] | | | GLORIA GENAO OF GM | [facility] | [address] | | | TESTS | | | | + + + + + CAPILLARY BLOOD GLUCOSE (NO CHG) POC (10/06/2017 1:04 AM PDT) + +-------+ [...] [facility] | [address] | [place], [place] | | | GLORIA GENAO OF CARE | [facility] | [address] | | | TESTS | | | [...] 70 - 99 mg/dL | [facility] - | | | GLUCOSE, | | [...] [facility] | [address] | [place], [place] | | | GLORIA GENAO OF CARE | [address] | [address] | | | TESTS | | | [...] [facility] | [address] | [place], [place] | | | JOHN GENAO | [facility] | [address] | | | TESTS | | | [...] DEPT OF | [address] | [place], [place] | | | CARDIOLOGY | [address] | [address] | | + + + + + [...] | + + + + + | [facility] | [address] | [place] [address] | | | SERVICES, CORE | PARK [...] [facility] | [address] | [place] [address] | | | SERVICES, CORE | VILMA [...] | | | LABORATORY | | | EQUATORIAL GUINEAN | | | SERVICES, | | | [...] | + + + + + | [facility] | [address] | [place] [address] | | | SERVICES, CORE | VILMA [...] 70 - 99 mg/dL | [facility] - | | | GLUCOSE, | | [...] [facility] | [address] | [place], [place] | | | GLORIA GENAO OF CARE | [facility] | [address] | | | TESTS | | | [...] [facility] | [address] | [place], [place] | | | GLORIA GENAO OF GM | [address] | [address] | | | TESTS | | | [...] [facility] | [address] | [place], [place] | | | GLORIA GENAO OF CARE | [facility] | [address] | | | TESTS | | | [...] 70 - 99 mg/dL | [facility] - | | | GLUCOSE, | | [...] [facility] | [address] | [place], [place] | | | GLORIA GENAO OF CARE | [facility] | [address] | | | TESTS | | | [...] [facility] | [address] | [place], [place] | | | GLORIA GENAO OF GM | [address] | [address] | | | TESTS | | | [...] + + + + | [facility] | [address] | [place] [address] | | | SERVICES, CORE | [address] | | | + + + + + MAGNESIUM, PLASMA (10/04/2017 5:28 AM PDT) + +-------+ + + + | Component | Value | Ref Range | Performed | Pathologist | | | | | At | Signature | + +-------+ + + + | MAGNESIUM,P | 2.0 | 1.6 - 2.6 mg/dL | [facility] | | | LASMA | | | [...] [facility] | [address] | [place] [address] | | | SERVICES, NATALEE | VILMA [...] | | | LABORATORY | | | EQUATORIAL GUINEAN | | | SERVICES, | | | [...] | + + + + + | [facility] | [address] | [place] [address] | | | SERVICES, NATALEE | VILMA [...] [facility] | [address] | [place], [place] | | | GLORIA GENAO OF CARE | [address] | [address] | | | TESTS | | | [...] 70 - 99 mg/dL | [facility] - | | | GLUCOSE, | | [...] [facility] | [address] | [place], [place] | | | GLORIA GENAO OF CARE | [address] | [address] | | | TESTS | | | [...] | + + + + + | [facility] | [address] | [place] [address] | | | SERVICES, CORE | VILMA [...] by | | | | | | HSTYLE,500 | | | | | | Rogelio Pickard, [facility],[place] | | | | | | [id number] | | | | | | [phone].[employer]. | | | | | | Gui [...] [facility] | [address] | [place], [place] | | | [facility] | | [address] | | + + + + + [...] [facility] | [address] | [place] [address] | | | SERVICES, CORE | PARK [...] + + + + | [facility] | [address] | [place] [address] | | | SERVICES, CORE | PARK [...] modified from | [facility] | | original gag writer's approved specifications. The performance | LABORATORY | | of the SALT PLANT OPERATOR HIV Combo test, with or without confirmation, was not | SERVICES, | | tested in pediatric patients less than 2 years of age. [facility] | SPECIAL IMM + | | [...] + + + + | [facility] | [address] | [place] [address] | | | SERVICES, SPECIAL | VILMA [...] 70 - 99 mg/dL | [facility] - | | | GLUCOSE, | | [...] [facility] | [address] | [place], [place] | | | GLORIA GENAO OF GM | [facility] | [address] | | | TESTS | | | [...] [facility] | [address] | [place], [place] | | | [facility] POINT OF CARE | [facility] | [address] | | | TESTS | | | [...] [facility] | [address] | [place] [address] | | | SERVICES, CORE | PARK [...] [facility] | [address] | [place] [address] | | | SERVICES, CORE | [address]ARK [...] | | | LABORATORY | | | EQUATORIAL GUINEAN | | | SERVICES, | | | [...] equation recommended by the | [facility] | | National Kidney Disease Education Program. [...] + + + + | [facility] | [address] | [place] [address] | | | NATALEE WORTHINGTON | PARK [...] + + | [facility] | [address] [address] | [place], [place] | | | GLORIA GENAO OF [facility] | [address] | [address] | | | TESTS | | | [...] [facility] | [address] | [place], [place] | | | GLORIA GENAO OF CARE | [address] | [address] | | | TESTS | | | [...] + + + + | LAUREN | 484 | ms | [facility] [...] DEPT OF | [address] | [place], [place] | | | CARDIOLOGY | [address] | [address] | | + + + + + [...] At | + + + | EXAM: WA CHEST 1 VIEW HISTORY: Evaluate PICC placement [...] the report as now presented. Final signature: Mareclo | | | MD Milli 10/02/2017 2:06 PM Preliminary: Marcelo Morley MD | | | Dictation initiated: Marcelo Morley MD 10/02/2017 2:04 PM | | + + + + + | Procedure Note | + + | Service Account, Radiant Res In Interface - 10/02/2017 2:07 PM PDT EXAM: WA CHEST 1 | | VIEW HISTORY: Evaluate [...] [facility] | [address] | [place], [place] | | | GLORIA GENAO OF CARE | [address] | [address] | | | TESTS | | | | + + + + + X-RAY PORTABLE CHEST 1 VIEW (10/02/2017 8:56 AM PDT) + + | Specimen | + + | | + + + + + | Narrative | Performed At | + + + | EXAM: WA CHEST 1 VIEW HISTORY: new leukocytosis, eval [...] Interface - 10/02/2017 10:27 AM PDT EXAM: WA CHEST 1 | | VIEW HISTORY: new [...] + + + + + | [facility] | [address] | [place], [place] | | | [facility]INT [facility] CARE | [address] | [address] | | | TESTS | | | [...] + + + + | [facility] | [address] | [place] [address] | | | NATALEE WORTHINGTON | VILMA [...] + + + + | [facility] | [address] [facility] | [place] [address] | | | NATALEE WORTHINGTON | [address] [...] | | | LABORATORY | | | EQUATORIAL GUINEAN | | | SERVICES, | | | [...] + + + + | [facility] | [address] [facility] | [place] [address] | | | SERVICES, CORE | PARK [...] [facility] | [address] | [place], [place] | | | GLORIA GENAO OF GM | [facility] | [address] | | | TESTS | | | | + + + + + CAPILLARY BLOOD GLUCOSE (NO CHG) POC (10/01/2017 7:31 PM PDT) + +---------+ [...] | [facility] | [address] | [place], [place] | | | CHADWICK [place] OF [facility] | [address] | [address] | | | TESTS | | | [...] [facility] | [address] | [place], [place] | | | GLORIA GENAO OF GM | [address] | [address] | | | TESTS | | | [...] Note | + + | Service Account, Lomaki In Interface - 10/01/2017 11:34 AM PDT [...] [facility] | [address] | [place], [place] | | | [facility] POINT OF CARE | [address] | [address] | | | TESTS | | | [...] + + + + | [facility] | [address] | [place] [address] | | | SERVICESNATALEE | [address] [...] + + + + | [facility] | [address] | [place] [address] | | | NATALEE WORTHINGTON | VILMA [...] | | | LABORATORY | | | EQUATORIAL GUINEAN | | | SERVICES, | | | [...] | + + + + + | [facility] | [address] | [place] [address] | | | SERVICES, CORE | PARK [...] [facility] | [address] | [place], [place] | | | GLORIA GENAO OF GM | [address] | [address] | | | TESTS | | | [...] [facility] | [address] | [place], [place] | | | GLORIA GENAO OF [facility] | [address] | [address] | | | TESTS | | | [...] DEPT OF | [address] | [place], [place] | | | CARDIOLOGY | [address] | [address] | | + + + + + [...] [facility] | [address] | [place], [place] | | | [facility]ARE | [address] | [address] | | | TESTS | | | [...] [facility] | [address] | [place], [place] | | | HILL, POINT OF CARE | [address] | [address] | | | TESTS | | | [...] [facility] | [address] | [place] [address] | | | SERVICES, CORE | PARK [...] [facility] | [address] | [place] [address] | | | SERVICES, CORE | PARK [...] | | | LABORATORY | | | EQUATORIAL GUINEAN | | | SERVICES, | | | [...] + + + + | [facility] | [address] [facility] | [place] [address] | | | NATALEE WORTHINGTON | VILMA [...] | [facility] | [address] | [place], [place] | | | [facility] PO[facility] CARE | [address] | [address] | | | TESTS | | | [...] [facility] | [address] | [place], [place] | | | GLORIA GENAO OF CARE | [address] | [address] | | | TESTS | | | [...] [facility] | [address] | [place], [place] | | | [facility] CARE | [address] | [address] | | | TESTS | | | [...] DEPT OF | [address] | [place], [place] | | | CARDIOLOGY | [address] | [address] | | + + + + + [...] [facility] | [address] | [place], [place] | | | GLORIA GENAO OF GM | [facility] | [address] | | | TESTS | | | [...] | + + + + + | [facility] | [address] | [place] [address] | | | SERVICES, CORE [...] | | | LABORATORY | | | EQUATORIAL GUINEAN | | | SERVICES, | | | [...] [facility] | [address] | [place] [address] | | | SERVICES, CORE | PARK [...] + + + + | [facility] | [address] | [place] [address] | | | NATALEE WORTHINGTON | VILMA [...] [facility] | [address] | [place], [place] | | | [place] GENAO [facility] | [facility] | [address] | | | TESTS | | | [...] [facility] | [address] | [place], [place] | | | GLORIA GENAO OF GM | [facility] | [address] | | | TESTS | | | [...] + + + + + | [facility] | [address] | [place], [place] | | | GLORIA GENAO OF CARE | [address] | [address] | | | TESTS | | | [...] OF | [address] | [place], [place] | | | CARDIOLOGY | [address] | [address] | | + + + + + [...] + + + | [facility] | [address] | [place], [place] | | | GLORIA GENAO OF CARE | [address] | [address] | | | TESTS | | | [...] [facility] | [address] | [place] [address] | | | NATALEE WORTHINGTON | VILMA [...] + + + + | [facility] | [address] [facility] | [place] [address] | | | SERVICES, NATALEE | VILMA [...] | | | LABORATORY | | | EQUATORIAL GUINEAN | | | SERVICES, | | | [...] | + + + + + | [facility] | [address] | [place] [address] | | | SERVICES, CORE | VILMA [...] [facility] | [address] | [place], [place] | | | GLORIA GENAO OF GM | [address] | [address] | | | TESTS | | | [...] + + + + | [facility] Jorge [facility] | [address] [facility] [address] | [place], [place] | | | [facility] [place] | [address] | [address] | | | TESTS | | | [...] [facility] | [address] | [place], [place] | | | GLORIA GENAO OF CARE | [address] | [address] | | | TESTS | | | [...] [facility] | [address] | [place], [place] | | | [facility] PO[facility] CARE | [address] | [address] | | | TESTS | | | [...] | + + + + + | [facility] | [address] | [place] [address] | | | SERVICES, NATALEE | VILMA [...] | + + + + + | [facility] | [address] | [place] [address] | | | SERVICES, CORE | VILMA [...] | | | LABORATORY | | | EQUATORIAL GUINEAN | | | SERVICES, | | | [...] the MDRD equation recommended by the | [facility] | | National Kidney Disease Education Program. [...] + + + + | [facility] | [address] | [place] [address] | | | SERVICES, CORE | VILMA [...] 70 - 99 mg/dL | [facility] - | | | GLUCOSE, | | [...] [facility] | [address] | [place], [place] | | | [facility] PO[facility] CARE | [address] | [address] | | | TESTS | | | [...] [facility] | [address] | [place], [place] | | | GLORIA GENAO OF CARE | [address] | [address] | | | TESTS | | | [...] DEPT OF | [address] | [place], [place] | | | CARDIOLOGY | [address] | [address] | | + + + + + [...] [facility] | [address] | [place], [place] | | | [facility] PO[facility] CARE | [address] | [address] | | | TESTS | | | [...] | [facility] | [address] | [place], [place] | | | [facility] POINT [facility] CARE | [address] | [address] | | | TESTS | | | [...] (H) | 70 - 99 mg/dL | [facility] - | | | GLUCOSE, | | [...] [facility] | [address] | [place], [place] | | | GL[facility]IA GENAO OF CARE | [facility] | [address] | | | TESTS | | | [...] + + + + | [facility] | [address] [facility] [facility] | [place] [address] | | | NATALEE WORTHINGTON | V[place] [...] | + + + + + | [facility] | [address] | [place] [address] | | | SERVICES, CORE | PARK [...] | | | LABORATORY | | | EQUATORIAL GUINEAN | | | SERVICES, | | | [...] + + + + | [facility] | [address] | [place] [address] | | | SERVICES, CORE | VILMA [...] 70 - 99 mg/dL | [facility] - | | | GLUCOSE, | | [...] [facility] | [address] | [place], [place] | | | GLORIA GENAO OF GM | [address] | [address] | | | TESTS | | | [...] + + + + | [facility] | [address] | [place] [address] | | | SERVICES, NATALEE | PARK [...] | + + + + + | [facility] | [address] | [place] [address] | | | SERVICES, CORE | VILMA [...] | | | LABORATORY | | | EQUATORIAL GUINEAN | | | SERVICES, | | | [...] + + + + | [facility] | [address] | [place] [address] | | | SERVICES, CORE | [address] | | | + + + + + 12 LEAD ECG (09/24/2017 9:28 PM PDT) + + + + + + | Component | Value | Ref Range | Performed | Pathologist | | | | | At | Signature | + + + + + + | VENTRICULAR | 74 | bpm | [facility] | | | RATE | | [...] DEPT OF | [address] | [place], [place] | | | CARDIOLOGY | [address] | [address] | | + + + + + [...] 2:43 PM Preliminary: Edelmira Parsons | Prabhakar MD | | Fluoro Time 55 second(s) [...] Account, Radiant Res In Interface - 09/24/2017 4:09 PM [...] + +---------+ + + | [facility] | | | | | [facility] | | | | [...] + + + + | [facility] | [address] [facility] | [place] [address] | | | SERVICES, CORE | PARK [...] | | | LABORATORY | | | EQUATORIAL GUINEAN | | | SERVICES, | | | [...] + + + + | [facility] | [address] | [place] [address] | | | SERVICES, CORE | VILMA [...] + + + + | [facility] | [address] | [place] [address] | | | NATALEE WORTHINGTON | PARK [...] + + + + | [facility] | [address] | [place] [address] | | | SERVICES, CORE | PARK [...] [facility] | [address] | [place] [address] | | | SERVICES, NATALEE | VILMA [...] | | | LABORATORY | | | E[facility]ATORIAL GUINEAN | | | SERVICES, | | | [...] | + + + + + | [facility] | [address] | [place] [address] | | | SERVICES, CORE | VILMA [...] [facility] | [address] | [place], [place] | | | GLORIA GENAO OF CARE | [facility] | [address] | | | TESTS | | | [...] 70 - 99 mg/dL | [facility] - | | | GLUCOSE, | | [...] [facility] | [address] | [place], [place] | | | [facility] | [address] | [address] | | | TESTS | | | [...] [facility] | [address] | [place] [address] | | | SERVICES, NATALEE | VILMA [...] GEET OF | [address] | [place], [place] | | | CARDIOLOGY | [address] | [address] | | + + + + + [...] [facility] | [address] | [place] [address] | | | SERVICES, CORE | PARK [...] [facility] | [address] | [place] [address] | | | SERVICES, CORE | PARK [...] | | | LABORATORY | | | EQUATORIAL GUINEAN | | | SERVICES, | | | [...] equation recommended by the | [facility] | | National Kidney Disease Education Program. [...] + + + + | [facility] | [address] | [place] [address] | | | NATALEE WORTHINGTON | VILMA [...] + + | [facility] | [address] [address] | [place], [place] | | | CH[facility] POINT OF CARE | [address] | [address] | | | TESTS | | | [...] [facility] | [address] | [place] [address] | | | NATALEE WROTHINGTON | [address] | | | + [...] + + + + | [facility] | [address] | [place] [address] | | | NATALEE WORTHINGTON | PARK [...] | | | LABORATORY | | | EQUATORIAL GUINEAN | | | SERVICES, | | | [...] | + + + + + | [facility] | [address] | [place] [address] | | | SERVICES, CORE | VILMA [...] Note | + + | Service Account, Maraquia Res In Interface - 09/20/2017 6:25 PM [...] Note | + + | Service Account, Maraquia Res In Interface - 09/20/2017 6:26 PM [...] Note | + + | Service Account, Maraquia Res In Interface - 09/20/2017 5:17 PM [...] + + + | ANA LILIA-HALIMA | 444 | ms | [facility] [...] DEPT OF | [address] | [place], [place] | | | CARDIOLOGY | [address] | [address] | | + + + + + [...] | + + + + + | [facility] | [address] | [place] [address] | | | SERVICES, CORE | VILMA [...] [facility] | [address] | [place] [address] | | | SERVICES, CORE | PARK [...] | | | LABORATORY | | | EQUATORIAL GUINEAN | | | SERVICES, | | | [...] equation recommended by the | [facility] | | National Kidney Disease Education Program. [...] [facility] | [address] | [place] [address] | | | SERVICES, CORE | PARK [...] | + + + + + | [facility] | [address] | [place] [address] | | | SERVICES, CORE | PARK [...] + + + + | [facility] | [address] | [place] [address] | | | SERVICES, CORE | PARK [...] | | | LABORATORY | | | EQUATORIAL GUINEAN | | | SERVICES, | | | [...] [facility] | [address] | [place] [address] | | | SERVICES, CORE | PARK [...] | + + + + + | [facility] | [address] | [place] [address] | | | SERVICES, CORE | VILMA [...] [facility] | [address] | [place] [address] | | | SERVICES, CORE | PARK [...] | | | LABORATORY | | | EQUATORIAL GUINEAN | | | SERVICES, | | | [...] | + + + + + | [facility] | [address] | [place] [address] | | | SERVICES, [facility] [...] Note | + + | Service Account, Lomaki In Interface - 09/17/2017 11:53 AM PDT [...] [facility] | [address] | [place] [address] | | | NATALEE WORTHINGTON | VILMA [...] + + + + | [facility] | [address] [facility] | [place] [address] | | | SERVICES, CORE | PARK [...] | | | LABORATORY | | | EQUATORIAL GUINEAN | | | SERVICES, | | | [...] + + + + | [facility] | [address] | [place] [address] | | | SERVICES, CORE | [address] | | | + + + + + X-RAY PORTABLE CHEST PICC LINE CHECK (09/16/2017 1:11 PM PDT) + + | Specimen | + + | | + + + + + | Narrative | Performed At | + + + | EXAM: WA CHEST PICC LINE CHECK HISTORY: PICC placement [...] Note | + + | Service Account, [place]erto[place] of [place] In Interface - 09/16/2017 1:34 PM PDT EXAM: WA CHEST | | PICC LINE CHECK HISTORY: [...] At | + + + | EXAM: WA CHEST PICC LINE CHECK HISTORY: Evaluate PICC [...] Interface - 09/16/2017 11:41 AM PDT EXAM: WA CHEST | | PICC LINE CHECK HISTORY: [...] [facility] | [address] | [place] [address] | | | NATALEE WORTHINGTON | PARK [...] | + + + + + | [facility] | [address] [facility] | [place] [address] | | | SERVICES, CORE | VILMA [...] | | | LABORATORY | | | EQUATORIAL GUINEAN | | | SERVICES, | | | [...] | + + + + + | [facility] | [address] | [place] [address] | | | SERVICES, CORE | [address] | | | + + + + + X-RAY PORTABLE CHEST 1 VIEW (09/15/2017 3:28 PM PDT) + + | Specimen | + + | | + + + + + | Narrative | Performed At | + + + | EXAM: WA CHEST 1 VIEW HISTORY: COMPARISON: None. | [...] Note | + + | Service Account, RadiSMT Research and Development Res In Interface - 09/15/2017 6:45 PM PDT EXAM: WA CHEST 1 | | VIEW HISTORY: COMPARISON: [...] At | + + + | EXAM: WA CHEST PICC LINE CHECK HISTORY: PICC COMPARISON: [...] Interface - 09/15/2017 6:43 PM PDT EXAM: WA CHEST | | PICC LINE CHECK HISTORY: [...] Note Indications:TPN Procedure | | | location: Unit:[facility] Room: [facility] Providers: Attending name: | | | Attending physically present: No PICC Nurse name: Chris Kern | | | Jarad RN,BSN,VAT Assisted by Declan jones RN,VAT | | | Pre-Procedure Consent: written consent obtained Consent given by: | | | Patient Patient identity confirmed per protocol: Yes Team Pause: | | | Immediatly prior to the procedure a pause per protocol was called. A | | | pause verifies correct patient, procedure, equipment, litigation support analyst | | | and site/side [...] | area Basilic vein. Catheter lot number: [id number] with a length of 55 | | [...] + + + + | [facility] | [address] [facility] | [place] [address] | | | ELIN, NATALEE | VILMA [...] | + + + + + | [facility] | [address] [facility] | [place] [address] | | | SERVICES, CORE | VILMA [...] | | | LABORATORY | | | EQUATORIAL GUINEAN | | | SERVICES, | | | [...] | + + + + + | [facility] | [address] | [place] [address] | | | SERVICES, CORE | [address] | | | + + + + + X-RAY SPINE CERVICAL 2 VIEWS (09/14/2017 4:51 PM PDT) + + | Specimen | + + | | + + + + + | Narrative | Performed At | + + + | EXAM: SPINE CERVICAL 2 VIEWS HISTORY: Cervical spine fractures | [facility] | | COMPARISON: 5/5/18 FINDINGS: The upper portion of the | [...] [facility] | [address] | [place] [address] | | | NATALEE WORTHINGTON | [address] [...] | + + + + + | [facility] | [address] [facility] | [place] [address] | | | NATALEE WORTHINGTON | [address] [...] | | | LABORATORY | | | EQUATORIAL GUINEAN | | | SERVICES, | | | [...] | + + + + + | [facility] | [address] | [place] [address] | | | SERVICES, CORE | PARK [...] [facility] | [address] | [place] [address] | | | NATALEE WORTHINGTON | [address] [...] | Reference range change effective 12/11/16. | [facility] | | | LABORATORY | | | NATALEE WORTHINGTON | + + + + + + + + | Performing | Address | City/State/Zipcode | Phone Number | | Organization | | | | + + + + + | [facility] | [address] | [place] [address] | | | NATALEE WORTHINGTON | [address] [...] | | | LABORATORY | | | EQUATORIAL GUINEAN | | | SERVICES, | | | [...] | + + + + + | [facility] | [address] | [place] [address] | | | SERVICES, CORE | VILMA [...] + +---------+ + + | [facility] | | | | | VOICE [...] [facility] | [address] | [place] [address] | | | NATALEE WORTHINGTON | [address] [...] [facility] | [address] | [place] [address] | | | SERVICES, CORE | PARK [...] | | | LABORATORY | | | EQUATORIAL GUINEAN | | | SERVICES, | | | [...] + + + + | [facility] | [address] [facility] | [place] [address] | | | NATALEE WORTHINGTON | [address] [...] Note | + + | Service Account, RadiSMT Research and Development Res In Interface - 09/11/2017 6:22 PM [...] [facility] | [address] | [place] [address] | | | SERVICES, CORE | VILMA [...] [facility] | [address] | [place] [address] | | | SERVICES, NATALEE | VIL[address] [...] | | | LABORATORY | | | EQUATORIAL GUINEAN | | | SERVICES, | | | [...] | + + + + + | [facility] | [address] | [place] [address] | | | SERVICES, CORE | VILMA [...] | + + + + + | [facility] | [address] | [place] [address] | | | SERVICES, CORE | VIL[address] [...] Note | + + | Service Account, Maraquia Res In Interface - 09/10/2017 2:08 PM [...] Note | + + | Service Account, Lomaki In Interface - 09/10/2017 2:31 PM PDT [...] At | + + + | STUDY: WA CHEST 1 VIEW 09/10/17 07:02:01 HISTORY: Possible [...] Note | + + | Service Account, Maraquia Res In Interface - 09/10/2017 9:25 AM PDT STUDY: WA CHEST 1 | | VIEW 09/10/17 07:02:01 [...] [facility] | [address] | [place] [address] | | | ELIN, CORE | PARK [...] [facility] | [address] | [place] [address] | | | SERVICES, CORE | PARK [...] | + + + + + | [facility] | [address] [facility] | [place] [address] | | | SERVICES, CORE | VILMA [...] | [facility] | [address] [facility] | [place] [address] | | | SERVICES, CORE | PARK [...] | | | LABORATORY | | | EQUATORIAL GUINEAN | | | SERVICES, | | | [...] equation recommended by the | [facility] | | National Kidney Disease Education Program. [...] + + + + | [facility] | [address] | [place] [address] | | | ELIN, NATALEE | VILMA [...] + + | [facility] | [address] | [place], [place] | | | CARDIOLOGY | [address] | [address] | | + + + + + [...] Note | + + | Service Account, Maraquia Res In Interface - 09/10/2017 11:11 AM [...] [facility] | [address] | [place], [place] | | | [facility] | [address] | [address] | | | TESTS | | | [...] [facility] | [address] | [place] [address] | | | SERVICES, NATALEE | VILMA [...] [facility] | [address] | [place] [address] | | | SERVICES, CORE | PARK [...] | | | LABORATORY | | | EQUATORIAL GUINEAN | | | SERVICES, | | | [...] equation recommended by the | [facility] | | National Kidney Disease Education Program. [...] + + + + | [facility] | [address] | [place] [address] | | | SERVICES, CORE | PARK [...] [facility] | [address] | [place] [address] | | | SERVICES, CORE | VILMA [...] | | | LABORATORY | | | EQUATORIAL GUINEAN | | | SERVICES, | | | [...] equation recommended by the | [facility] | | National Kidney Disease Education Program. [...] [facility] | [address] | [place] [address] | | | SERVICES, CORE | PARK [...] | + + + + + | [facility] | [address] | [place] [address] | | | SERVICES, CORE | VILMA [...] [facility] | [address] | [place] [address] | | | SERVICES, CORE | PARK [...] DEPT OF | [address] | [place], [place] | | | CARDIOLOGY | [address] | [address] | | + + + + + X-RAY PORTABLE CHEST 1 VIEW (09/07/2017 6:12 AM PDT) + + | Specimen | + + | | + + + + + | Narrative | Performed At | + + + | EXAM: WA CHEST 1 VIEW HISTORY: Post extubation COMPARISON: [...] Note | + + | Service Account, RadiSMT Research and Development Res In Interface - 09/07/2017 10:46 AM PDT EXAM: WA CHEST 1 | | VIEWHISTORY: Post extubationCOMPARISON: [...] [facility] | [address] | [place] [address] | | | NATALEE WORTHINGTON | PARK [...] | | | LABORATORY | | | EQUATORIAL GUINEAN | | | SERVICES, | | | [...] + + + + | [facility] | [address] | [place] [address] | | | SERVICES, CORE | VILMA [...] | + + + + + | [facility] | [address] | [place] [address] | | | SERVICES, CORE | VILMA [...] + + + + | [facility] OF | [address] [facility] | [place], [place] | | | CARDIOLOGY | [address] | [address] | | + + + + + [...] | | | attempt. Midline lot number [id number]; there was positive blood | | | [...] | | | LABORATORY | | | EQUATORIAL GUINEAN | | | SERVICES, | | | [...] [facility] | [address] | [place] [address] | | | SERVICES, CORE | PARK [...] + + + + | [facility] | [address] [facility] | [place] [address] | | | SERVICES, [facility] | [address] | | | + + + + + X-RAY PORTABLE CHEST 1 VIEW (09/05/2017 5:33 AM PDT) + + | Specimen | + + | | + + + + + | Narrative | Performed At | + + + | EXAM: WA CHEST 1 VIEW HISTORY: Evaluation after chest [...] Note | + + | Service Account, Maraquia Res In Interface - 09/05/2017 10:16 AM PDT EXAM: WA CHEST 1 | | VIEW HISTORY: Evaluation [...] + +---------+ + + | [facility] | | | | | VOICE [...] | + + + + + | [facility] | [address] | [place] [address] | | | SERVICES, CORE | VILMA [...] | + + + + + | [facility] | [address] | [place] [address] | | | SERVICES, CORE | PARK [...] | | | LABORATORY | | | EQUATORIAL GUINEAN | | | SERVICES, | | | [...] [facility] | [address] | [place] [address] | | | SERVICES, CORE | PARK [...] | | | LABORATORY | | | EQUATORIAL GUINEAN | | | SERVICES, | | | [...] the MDRD equation recommended by the | [facility] | | National Kidney Disease Education Program. [...] | + + + + + | [facility] | [address] [facility] | [place] [address] | | | [facility] | [...] tomorrow morning. CB Henson Pager / [place]: [phone] | | + + + CULTURE, SPUTUM [...] seen | AIRPORT - | | | [facility] | + + + + + + + + | Performing | Address | City/State/Zipcode | Phone Number | | Organization | | | | + + + + + | [facility] | [address] | [place] [address] | | | [place] | | | [...] [facility] | [address] | [place] [address] | | | SERVICES, CORE | [address] | | | + + + + + UA DIPSTICK ONLY (09/04/2017 1:17 PM PDT) + [...] | [facility] | | | GRAVITY | [place] performed by | | LABORATORY | | [...] [facility] | [address] | [place] [address] | | | SERVICES, CORE | PARK [...] + + + + | [facility] | [address] | [place] [address] | | | SERVICES, CORE | VILMA [...] [facility] | [address] | [place] [address] | | | SERVICES, CORE | VILMA [...] + + + + | [facility] | [address] | [place], [place] | | | CARDIOLOGY | [address] | [address] | | + + + + + X-RAY PORTABLE CHEST 1 VIEW (09/04/2017 7:04 AM PDT) + + | Specimen | + + | | + + + + + | Narrative | Performed At | + + + | EXAM: WA CHEST 1 VIEW HISTORY: Hypoxia. Intubated. | [...] Interface - 09/04/2017 9:49 AM PDT EXAM: WA CHEST 1 | | VIEW HISTORY: Hypoxia. [...] | + + + + + | [facility] | [address] | [place] [address] | | | SERVICES, CORE | VILMA [...] + + + + | [facility] | [address] | [place] [address] | | | SERVICES, [facility] [...] | | | LABORATORY | | | EQUATORIAL GUINEAN | | | SERVICES, | | | [...] equation recommended by the | [facility] | | National Kidney Disease Education Program. [...] + + + + | [facility] | [address] | [place] [address] | | | SERVICES, CORE | [address] | | | + + + + + MAGNESIUM, PLASMA (09/04/2017 12:29 AM PDT) + +-------+ + + + | Component | Value | Ref Range | Performed | Pathologist | | | | | At | Signature | + +-------+ + + + | MAGNESIUM,P | 1.9 | 1.6 - 2.6 mg/dL | [facility] | | | [facility] | | | [...] [facility] | [address] | [place] [address] | | | NATALEE WORTHINGTON | [address] [...] [facility] | [address] | [place], [place] | | | CH[facility]WICK POINT OF CARE | [address] | [address] | | | TESTS | | | [...] [facility] | [address] | [place], [place] | | | GLORIA GENAO OF CARE | [address] | [address] | | | TESTS | | | [...] [facility] | [address] | [place], [place] | | | CHADWICK POINT OF CARE | [address] | [address] | | | TESTS | | | [...] [facility] | [address] | [place], [place] | | | [facility] | [address] | [address] | | | TESTS | | | [...] detected | AIRPORT - | | | [facility] | + + + + + + + + | Performing | Address | City/State/Zipcode | Phone Number | | Organization | | | | + + + + + | [facility] | [address] | [place] [address] | | | [place] | | | [...] [facility] | [address] | [place] [address] | | | SERVICES, CORE | PARK [...] Note | + + | Service Account, Lomaki In Interface - 09/03/2017 9:54 AM PDT [...] + | [facility] | [address] | [place] [address] | | | [place] | | | | + + + [...] [facility] | [address] | [place] [address] | | | SERVICES, CORE | PARK [...] | + + + + + | [facility] | [address] [facility] | [place] [address] | | | SERVICES, CORE | [address] [...] | | | LABORATORY | | | EQUATORIAL GUINEAN | | | SERVICES, | | | [...] | + + + + + | [facility] | [address] | [place] [address] | | | SERVICES, CORE | PARK [...] | + + + + + | [facility] | [address] [facility] | [place] [address] | | | SERVICES, CORE | [address] | | | + + + + + OPERATION RECORD (09/02/2017 6:53 PM PDT) + + | Procedure Note | + + | Fidelina Shields MD - 09/02/2017 6:53 PM PDT Date of Service: 09/02/2017 | | Attending Surgeon: Fidelina Shields MD Combat Control(s): | | Ajay Butts MD, resident. Preoperative [...] ICU in stable condition.Ajay Butts, | | MDMaSHARLENE HernandezK/MODLDD: 09/02/2017 18:15:29DT: 09/02/2017 18:53:52Job #: | | [id number] to federal Medicare and Medicaid regulations I was present for | | the entire procedure.Fidelina Shields MDAssistanbrice ProfessorDepartment of SurgeryOffice: | | [phone]: [id number] has been electronically signed by Fidelina Shields MD, | | 09/03/2017 at 9:11 AM. | | | | | |Fidelina Shields MD | |Internet Architect | |Department of Surgery | |Office: [phone] | |Pager: [phone] | | | |This has been electronically [...] + + + + | [facility] | [address] [facility] | [place] [address] | | | SERVICES, CORE | PARK [...] [facility] | [address] | [place] [address] | | | SERVICES, NATALEE | VILMA [...] detected | AIRPORT - | | | [place] | + + + + + + + + | Performing | Address | City/State/Zipcode | Phone Number | | Organization | | | | + + + + + | [facility] | [address] | [place] [address] | | | [place] | | | [...] [facility] | [address] | [place] [address] | | | NATALEE WORTHINGTON | PARK [...] | | | LABORATORY | | | EQUATORIAL GUINEAN | | | SERVICES, | | | [...] + + + + | [facility] | [address] | [place] [address] | | | NATALEE WORTHINGTON | VILMA [...] Note | + + | Service Account, Lomaki In Interface - 09/02/2017 4:25 PM PDT [...] | | | contact: INGRID Butts, Surgery [phone] Pursuant | | | to federal Medicare and Medicaid regulations I was present for the | | | entire procedure. Fidelina Shields MD Internet Architect | | | Department of Surgery Office: [phone] Pager: [phone] This has | | | been electronically [...] + + + + | [facility] | [address] | [place] [address] | | | SERVICES, CORE | PARK [...] | + + + + + | [facility] | [address] [facility] | [place] [address] | | | SERVICES, [facility] | [address] | | | + + + + + OPERATION RECORD (09/02/2017 6:51 AM PDT) + ---+ | Procedure Note | + ---+ | Fidelina Shields MD - 09/02/2017 6:51 AM PDT Date of Service: 09/01/2017 | | Attending Surgeon: Fidelina Shields MD Combat Control(s): Haim Peralta MD. | | Ajay Butts [...] of the angiography.Ajay | | Truong Casarez, GHAZALA/MODDIOND: 09/02/2017 06:17:53DT: 09/02/2017 | | 06:51:37Job #: [id number] to federal Medicare and Medicaid regulations I | | was present for the entire procedure.Fidelina Tenorio ProfessorDepartment of | | SurgeryOffice: [phone]: [id number] has been electronically signed by Fidelina Radford | MD Cornelius, 09/02/2017 at 10:40 AM. | | | | | |Pursuant to federal Medicare and Medicaid regulations I was present for the entire procedur e. | | | | | | | |Fidelina Shields MD | |Internet Architect | |Department of Surgery | |Office: [phone] | |Pager: [phone] | | | |This has been electronically [...] | + + + + + | [facility] | [address] [facility] | [place] [address] | | | SERVICES, CORE | [address] [...] [facility] | [address] | [place] [address] | | | ELIN, NATALEE | [address] [...] + + + + | PRODUCT | [id number] | | [facility] | | | UNIT [...] + + + + | EXPIRATION | [id number] | | [facility] | | | DATE [...] + + + + | BLOOD | [id number] | | [facility] | | | PRODUCT [...] [facility] | [address] | [place] [address] | | | SERVICES, | [address] [...] Note | + + | Service Account, RadiSMT Research and Development Res In Interface - 09/02/2017 11:22 AM [...] + +---------+ + + | [facility] | | | | | VOICE [...] | + + + + + | [facility] | [address] | [place] [address] | | | SERVICES, CORE | [address] [...] | | | LABORATORY | | | EQUATORIAL GUINEAN | | | SERVICES, | | | [...] | + + + + + | [facility] | [address] | [place] [address] | | | SERVICES, CORE | VILMA [...] | + + + + + | [facility] | [address] | [place] [address] | | | SERVICES, CORE | [address] [...] | | | | INFORMATION: | | [employer] | | | | Qu[employer] | [...] (http://www.cdc.gov/mmwr | | | | | | [email or web address] | | | | | | [email or web address]), [...] [facility] - | | | | by [employer], | | AIRPORT - | | | | | | [place] | | | | [address] | | | | | | Rogelio Pickard [facility] | | | | | | [phone] | | | | | | | | | | | | www.[employer] | | | | | | [...] + | [facility] - | [address] | [place] [address] | | | [facility] | | | | + + [...] | + + + + + | [facility] | [address] | [place] [address] | | | SERVICES, CORE | [address] [...] + + + + | [facility] | [address] | [place] [address] | | | SERVICES, CORE | PARK [...] At | + + + | EXAM: WA CHEST 1 VIEW HISTORY: Hypoxemia COMPARISON: 09/01/17 [...] Interface - 09/02/2017 10:34 AM PDT EXAM: WA CHEST 1 | | VIEW HISTORY: HypoxemiaCOMPARISON: [...] [facility] | [address] | [place] [address] | | | SERVICES, CORE | PARK [...] | + + + + + | [facility] | [address] | [place] [address] | | | SERVICES, CORE | VILAM [...] + + + + | PRODUCT | [id number] | | [facility] | | | UNIT [...] + + + + | EXPIRATION | [id number] | | [facility] | | | DATE [...] + + + + | BLOOD | [id number] | | [facility] | | | PRODUCT [...] | + + + + + | [facility] | [address] | [place] [address] | | | SERVICES, | [address] [...] [facility] | [address] | [place] [address] | | | SERVICES, CORE | PARK [...] + + + + | [facility] | [address] | [place] [address] | | | SERVICES, CORE | PARK [...] | + + + + + | [facility] | [address] | [place] [address] | | | SERVICES, CORE | VILMA [...] | | | LABORATORY | | | [facility] | | | SERVICES, | | | [...] equation recommended by the | [facility] | | National Kidney Disease Education Program. [...] + + + + | [facility] | [address] | [place] [address] | | | NATALEE WORTHINGTON | VILMA [...] + + + + | [facility] | [address] | [place] [address] | | | NATALEE WORTHINGTON | VILMA [...] a | 1.14 - 1.32 | [facility] | | | WHOLE BLD | corrected result. | mmol/L | LABORATORY | | | | Previous result was 1.19 | | [facility], | | | | mmol/L on 09/01/2017 [...] [facility] | [address] | [place] [address] | | | NATALEE WORTHINGTON | VILMA [...] micropuncture access set was exchanged for a Immediately wire. Under | | | fluoroscopic guidance, a 5 Fr flush catheter was used to evaluate the | | | distal abdominal aorta and pelvic vasculature. A wire and catheter | | | were then used to select the left common and internal iliac arteries | | | from the right GUEST ADVISOR approach. DSA was performed from the left [...] | | iliac arteries from the right GUEST ADVISOR approach. DSA was performed from the left [...] and internal iliac arteries from the right GUEST ADVISOR approach. DSA was performed from the left [...] | | | + +---------+ + + G-CITLALY TEJADA (09/01/2017 1:36 PM PDT) + + [...] | | ART, POC | | | [facility] | | [...] [facility] | [address] | [place], [place] | | | GLORIA GENAO OF [facility] | [address] | [address] | | | TESTS | | | | + + + + + EXPLORATORY LAPAROTOMY (09/01/2017 12:31 PM PDT) + + + | Narrative | Performed At | + + + | Fidelina Shields MD 09/01/2017 12:42 PM BRIEF OPERATIVE NOTE: | | | Date: 09/01/2017 Author: Fidelina Shields MD | | | Attending Physician: Fidelina Shields MD Combat Control(s): Haim Peralta | | | , Vicente Butts MD, Glo Gilmore MS3 Prior to the | | | [...] case. | | | Fidelina Shields MD Internet [employer] Division of Trauma, | | | Critical Care and Acute Care Surgery Office: [phone] Pager: | | | [phone] | | + + + ABG-FULL ABL, [...] | | ART, POC | | | [facility] | | | | | | GLORIA [...] [facility] | [address] | [place], [place] | | | VIR[place] GENAO [facility] | [facility] | [address] | | | TESTS | | | [...] + + | [facility] | [address] | [place] [address] | | | SERVICES, NATALEE [...] | | | POC | | | GOLRIA GENAO | | [...] - [facility] | [address] | [place], [place] | | | [facility] | [address] | [address] | | | TESTS | | | [...] + + + + | PRODUCT | [id number] | | [facility] | | | UNIT [...] + + + + | EXPIRATION | [id number] | | [facility] | | | DATE [...] + + + + | BLOOD | [id number] | | [facility] | | | PRODUCT [...] [facility] | [address] | [place] [address] | | | SERVICES, | [address] [...] + + + + | PRODUCT | [id number] | | [facility] | | | UNIT [...] + + + + | EXPIRATION | [id number] | | [facility] | | | DATE [...] + + + + | BLOOD | [id number] | | [facility] | | | PRODUCT [...] + + + + | [facility] | [address] | [place] [address] | | | SERVICES, | [address] [...] + + + + | PRODUCT | [id number] | | [facility] | | | UNIT [...] + + + + | EXPIRATION | [id number] | | [facility] | | | DATE [...] + + + + | BLOOD | [id number] | | [facility] | | | PRODUCT [...] | + + + + + | [facility] | [address] [facility] | [place] [address] | | | SERVICES, | [address] [...] + + + + | PRODUCT | [id number] | | [facility] | | | UNIT [...] + + + + | EXPIRATION | [id number] | | [facility] | | | DATE [...] + + + + | BLOOD | [id number] | | [facility] | | | PRODUCT [...] | + + + + + | [facility] | [address] | [place] [address] | | | SERVICES, | [address] [...] + + + + | PRODUCT | [id number] | | [facility] | | | UNIT [...] + + + + | EXPIRATION | [id number] | | [facility] | | | DATE [...] + + + + | BLOOD | [id number] | | [facility] | | | PRODUCT [...] | + + + + + | [facility] | [address] [facility] | [place] [address] | | | SERVICES, | [address] [...] + + + + | PRODUCT | [id number] | | [facility] | | | UNIT [...] + + + + | EXPIRATION | [id number] | | [facility] | | | DATE [...] + + + + | BLOOD | [id number] | | [facility] | | | PRODUCT [...] [facility] | [address] | [place] [address] | | | SERVICES, | [address] [...] + + + + | PRODUCT | [id number] | | [facility] | | | UNIT [...] + + + + | EXPIRATION | [id number] | | [facility] | | | DATE [...] + + + + | BLOOD | [id number] | | [facility] | | | PRODUCT [...] [facility] | [address] | [place] [address] | | | SERVICES, | [address] [...] + + + + | PRODUCT | [id number] | | [facility] | | | UNIT [...] + + + + | EXPIRATION | [id number] | | [facility] | | | DATE [...] + + + + | BLOOD | [id number] | | [facility] | | | PRODUCT [...] [facility] | [address] | [place] [address] | | | SERVICES, | [address] [...] + + + + | PRODUCT | [id number] | | [facility] | | | UNIT [...] + + + + | EXPIRATION | [id number] | | [facility] | | | DATE [...] + + + + | BLOOD | [id number] | | [facility] | | | PRODUCT [...] [facility] | [address] | [place] [address] | | | SERVICES, | [address] [...] + + + + | PRODUCT | [id number] | | [facility] | | | UNIT [...] + + + + | EXPIRATION | [id number] | | [facility] | | | DATE [...] + + + + | BLOOD | [id number] | | [facility] | | | PRODUCT [...] [facility] | [address] | [place] [address] | | | SERVICES, | [address] [...] + + + + | PRODUCT | [id number] | | [facility] | | | UNIT [...] + + + + | EXPIRATION | [id number] | | [facility] | | | DATE [...] + + + + | BLOOD | [id number] | | [facility] | | | PRODUCT [...] | + + + + + | [facility] | [address] | [place] [address] | | | SERVICES, | [address] [...] + + + + | PRODUCT | [id number] | | [facility] | | | UNIT [...] + + + + | EXPIRATION | [id number] | | [facility] | | | DATE [...] + + + + | BLOOD | [id number] | | [facility] | | | PRODUCT [...] | + + + + + | [facility] | [address] | [place] [address] | | | SERVICES, | [address] [...] + + + + | PRODUCT | [id number] | | [facility] | | | UNIT [...] + + + + | EXPIRATION | [id number] | | [facility] | | | DATE [...] + + + + | BLOOD | [id number] | | [facility] | | | PRODUCT [...] | + + + + + | [facility] | [address] | [place] [address] | | | SERVICES, | [address] [...] + + + + | PRODUCT | [id number] | | [facility] | | | UNIT [...] + + + + | EXPIRATION | [id number] | | [facility] | | | DATE [...] + + + + | BLOOD | [id number] | | [facility] | | | PRODUCT [...] [facility] | [address] | [place] [address] | | | SERVICES, | [address] [...] + + + + | PRODUCT | [id number] | | [facility] | | | UNIT [...] + + + + | EXPIRATION | [id number] | | [facility] | | | DATE [...] + + + + | BLOOD | [id number] | | [facility] | | | PRODUCT [...] [facility] | [address] | [place] [address] | | | SERVICES, | [address] [...] + + + + | PRODUCT | [id number] | | [facility] | | | UNIT [...] + + + + | EXPIRATION | [id number] | | [facility] | | | DATE [...] + + + + | BLOOD | [id number] | | [facility] | | | PRODUCT [...] [facility] | [address] | [place] [address] | | | SERVICES, | [address] [...] + + + + | PRODUCT | [id number] | | [facility] | | | UNIT [...] + + + + | EXPIRATION | [id number] | | [facility] | | | DATE [...] + + + + | BLOOD | [id number] | | [facility] | | | PRODUCT [...] [facility] | [address] | [place] [address] | | | SERVICES, | [address] [...] + + + + | PRODUCT | [id number] | | [facility] | | | UNIT [...] + + + + | EXPIRATION | [id number] | | [facility] | | | DATE [...] + + + + | BLOOD | [id number] | | [facility] | | | PRODUCT [...] [facility] | [address] | [place] [address] | | | SERVICES, | [address] [...] + + + + | PRODUCT | [id number] | | [facility] | | | UNIT [...] + + + + | EXPIRATION | [id number] | | [facility] | | | DATE [...] + + + + | BLOOD | [id number] | | [facility] | | | PRODUCT [...] [facility] | [address] | [place] [address] | | | SERVICES, | [address] [...] + + + + | PRODUCT | [id number] | | [facility] | | | UNIT [...] + + + + | EXPIRATION | [id number] | | [facility] | | | DATE [...] + + + + | BLOOD | [id number] | | [facility] | | | PRODUCT [...] [facility] | [address] | [place] [address] | | | SERVICES, | [address] [...] + + + + | PRODUCT | [id number] | | [facility] | | | UNIT [...] + + + + | EXPIRATION | [id number] | | [facility] | | | DATE [...] + + + + | BLOOD | [id number] | | [facility] | | | PRODUCT [...] + + + + | [facility] | [address] | [place] [address] | | | SERVICES, | [address] [...] + + + + | PRODUCT | [id number] | | [facility] | | | UNIT [...] + + + + | EXPIRATION | [id number] | | [facility] | | | DATE [...] + + + + | BLOOD | [id number] | | [facility] | | | PRODUCT [...] | + + + + + | [facility] | [address] | [place] [address] | | | SERVICES, | [address] [...] + + + + | PRODUCT | [id number] | | [facility] | | | UNIT [...] + + + + | EXPIRATION | [id number] | | [facility] | | | DATE [...] + + + + | BLOOD | [id number] | | [facility] | | | PRODUCT [...] | + + + + + | [facility] | [address] | [place] [address] | | | SERVICES, | [address] [...] + + + + | PRODUCT | [id number] | | [facility] | | | UNIT [...] + + + + | EXPIRATION | [id number] | | [facility] | | | DATE [...] + + + + | BLOOD | [id number] | | [facility] | | | PRODUCT [...] | + + + + + | [facility] | [address] | [place] [address] | | | SERVICES, | [address] [...] + + + + | PRODUCT | [id number] | | [facility] | | | UNIT [...] + + + + | EXPIRATION | [id number] | | [facility] | | | DATE [...] + + + + | BLOOD | [id number] | | [facility] | | | PRODUCT [...] [facility] | [address] | [place] [address] | | | SERVICES, | [address] [...] + + + + | PRODUCT | [id number] | | [facility] | | | UNIT [...] + + + + | EXPIRATION | [id number] | | [facility] | | | DATE [...] + + + + | BLOOD | [id number] | | [facility] | | | PRODUCT [...] [facility] | [address] | [place] [address] | | | SERVICES, | [address] [...] | + + + + + | [facility] | [address] | [place] [address] | | | SERVICES, CORE | V[address] [...] | | | LABORATORY | | | EQUATORIAL GUINEAN | | | SERVICES, | | | [...] | + + + + + | [facility] | [address] | [place] [address] | | | SERVICES, CORE | [address] [...] | + + + + + | [facility] | [address] | [place] [address] | | | SERVICES, CORE | V[address] [...] | + + + + + | [facility] | [address] | [place], [place] | | | [facility] | [address] | [address] | | | TESTS | | | | + + + + + X-RAY PORTABLE CHEST 1 VIEW (09/01/2017 9:18 AM PDT) + + | Specimen | + + | | + + + + + | Narrative | Performed At | + + + | EXAM: WA CHEST 1 VIEW HISTORY: Intubated COMPARISON: 08/31/17 [...] Interface - 09/02/2017 1:23 PM PDT EXAM: WA CHEST 1 | | VIEW HISTORY: IntubatedCOMPARISON: [...] Note | + + | Service Account, Lomaki In Interface - 09/01/2017 1:40 PM PDT [...] + + + + | PRODUCT | [id number] | | [facility] | | | UNIT [...] + + + + | EXPIRATION | [id number] | | [facility] | | | DATE [...] + + + + | BLOOD | [id number] | | [facility] | | | PRODUCT [...] [facility] | [address] | [place] [address] | | | SERVICES, | [address] [...] + + + + | PRODUCT | [id number] | | [facility] | | | UNIT [...] + + + + | EXPIRATION | [id number] | | [facility] | | | DATE [...] + + + + | BLOOD | [id number] | | [facility] | | | PRODUCT [...] [facility] | [address] | [place] [address] | | | SERVICES, | [address] [...] + + + + | PRODUCT | [id number] | | [facility] | | | UNIT [...] + + + + | EXPIRATION | [id number] | | [facility] | | | DATE [...] + + + + | BLOOD | [id number] | | [facility] | | | PRODUCT [...] [facility] | [address] | [place] [address] | | | SERVICES, | [address] [...] + + + + | PRODUCT | [id number] | | [facility] | | | UNIT [...] + + + + | EXPIRATION | [id number] | | [facility] | | | DATE [...] + + + + | BLOOD | [id number] | | [facility] | | | PRODUCT [...] [facility] | [address] | [place] [address] | | | SERVICES, | [address] [...] + + + + | PRODUCT | [id number] | | [facility] | | | UNIT [...] + + + + | EXPIRATION | [id number] | | [facility] | | | DATE [...] + + + + | BLOOD | [id number] | | [facility] | | | PRODUCT [...] [facility] | [address] | [place] [address] | | | SERVICES, | [address] [...] + + + + | PRODUCT | [id number] | | [facility] | | | UNIT [...] + + + + | EXPIRATION | [id number] | | [facility] | | | DATE [...] + + + + | BLOOD | [id number] | | [facility] | | | PRODUCT [...] [facility] | [address] | [place] [address] | | | SERVICES, | [address] [...] + + + + | PRODUCT | [id number] | | [facility] | | | UNIT [...] + + + + | EXPIRATION | [id number] | | [facility] | | | DATE [...] + + + + | BLOOD | [id number] | | [facility] | | | PRODUCT [...] [facility] | [address] | [place] [address] | | | SERVICES, | [address] [...] + + + + | PRODUCT | [id number] | | [facility] | | | UNIT [...] + + + + | EXPIRATION | [id number] | | [facility] | | | DATE [...] + + + + | BLOOD | [id number] | | [facility] | | | PRODUCT [...] + + + + | [facility] | [address] | [place] [address] | | | SERVICES, | [address] [...] + + + + | PRODUCT | [id number] | | [facility] | | | UNIT [...] + + + + | EXPIRATION | [id number] | | [facility] | | | DATE [...] + + + + | BLOOD | [id number] | | [facility] | | | PRODUCT [...] | + + + + + | [facility] | [address] | [place] [address] | | | SERVICES, | [address] [...] | + + + + + | [facility] | [address] [facility] [address] [facility] | [place] [address] | | | SERVICES, CORE | [address] [...] [facility] | [address] | [place] [address] | | | SERVICES, CORE | [address] [...] Discussed with | | | trauma ICU international controller by Dr. Yang at 4:38 AM. I [...] interspinous ligament is injured.Discussed with trauma ICU international controller | | by Dr. Yang at 4:38 AM.I have personally reviewed the images and, if necessary, | | edited the report. I agree with the report as now presented. | |3. Extensive soft tissue edema extending into the cervical and upper thoracic interspinous space, suggestive of interspinous ligament is injured. | | | |Discussed with trauma ICU international controller by Dr. Yang at 4:38 AM. | [...] | | | LABORATORY | | | [facility]IAL [facility] | | | SERVICES, | | | [...] [facility] | [address] | [place] [address] | | | SERVICES, CORE | [address]ARK [...] [facility] | [address] | [place] [address] | | | SERVICES, CORE | PARK [...] [facility] | [address] | [place] [address] | | | SERVICES, CORE | PARK [...] | + + + + + | [facility] | [address] [facility] [facility] | [place] [address] | | | [facility] | [...] pleural spaced was performed. A 32 size Qatari chest tube was | | | placed [...] | ventricles. Discussed with the trauma ICU international controller at 12:12 AM by | | | [...] ventricles.Discussed with | | the trauma ICU international controller at 12:[address] Yang.I have [...] | | |Discussed with the trauma ICU international controller at 12:[address] Yang. | [...] [facility] | [address] | [place], [place] | | | [facility] | [address] | [address] | | | TESTS | | | [...] [facility] | [address] | [place] [address] | | | SERVICES, CORE | PARK [...] [facility] | [address] | [place] [address] | | | NATALEE WORTHINGTON | [address] [...] + +---------+ + + | [facility] | | | | | VOICE [...] + + + + | [facility] | [address] | [place] [address] | | | [facility] | [address] | | | + + + + + X-RAY PORTABLE CHEST 1 VIEW (08/31/2017 7:07 PM PDT) + + | Specimen | + + | | + + + + + | Narrative | Performed At | + + + | STUDY: WA CHEST 1 VIEW HISTORY: Trauma COMPARISON: CT CAP | [facility] | | 08/31/2017 FINDINGS: Endotracheal tube with [...] Interface - 09/01/2017 1:44 PM PDT STUDY: WA CHEST 1 | | VIEWHISTORY: TraumaCOMPARISON: CT CAP 5/5/2018FINDINGS: Endotracheal tube with tip | | terminating [...] | + + + + + | [facility] | [address] | [place] [address] | | | SERVICES, CORE | [address] [...] Note | + + | Service Account, Lomaki In Interface - 08/31/2017 8:22 PM PDT [...] Note | + + | Service Account, Maraquia Res In Interface - 09/01/2017 10:12 AM [...] rib, nondisplaced-Left | | 1st rib fracture, zgvsqcnzprab-Wos-gjutfigxf left lateral 8th rib fracture-T12 fracture | [...] Note | + + | Service Account, Maraquia Res In Interface - 08/31/2017 8:10 PM [...] [facility] | [address] | [place] [address] | | | SERVICES, | [address] [...] [facility] | [address] | [place] [address] | | | SERVICES, | [address] [...] [facility] | [address] | [place] [address] | | | SERVICES, | [address] [...] + | [facility] | [address] | [place], [place] | | | GLORIA GENAO OF CARE | [address] | [address] | | | TESTS | | | [...] | | AMPLITUDE - | | | [facility] | | | CITRATED | | | [...] [facility] | [address] | [place], [place] | | | [facility] | [address] | [address] | | | TESTS | | | [...] [facility] | [address] | [place], [place] | | | [facility] | [address] | [address] | | | TESTS | | | [...] [facility] | [address] | [place], [place] | | | [facility]IA GE[facility] OF [facility] | [address] | [address] | | | TESTS | | | [...] + + + + | PRODUCT | [id number] | | [facility] | | | UNIT [...] + + + + | EXPIRATION | [id number] | | [facility] | | | DATE [...] + + + + | BLOOD | [id number] | | [facility] | | | PRODUCT [...] LABORATORY | [address] | [place] [address] | | | SERVICES, | [address] [...] + + + + | PRODUCT | [id number] | | [facility] | | | UNIT [...] + + + + | EXPIRATION | [id number] | | [facility] | | | DATE [...] + + + + | BLOOD | [id number] | | [facility] | | | PRODUCT [...] [facility] | [address] | [place] [address] | | | SERVICES, | [address] [...] + + + + | PRODUCT | [id number] | | [facility] | | | UNIT [...] + + + + | EXPIRATION | [id number] | | [facility] | | | DATE [...] + + + + | BLOOD | [id number] | | [facility] | | | PRODUCT [...] | + + + + + | [facility] | [address] | [place] [address] | | | SERVICES, | [address] [...] + + + + | PRODUCT | [id number] | | [facility] | | | UNIT [...] + + + + | EXPIRATION | [id number] | | [facility] | | | DATE [...] + + + + | BLOOD | [id number] | | [facility] | | | PRODUCT [...] | + + + + + | [facility] | [address] | [place] [address] | | | SERVICES, | [address] [...] + + + + | PRODUCT | [id number] | | [facility] | | | UNIT [...] + + + + | EXPIRATION | [id number] | | [facility] | | | DATE [...] + + + + | BLOOD | [id number] | | [facility] | | | PRODUCT [...] | + + + + + | [facility] | [address] | [place] [address] | | | SERVICES, | [address] [...] + + + + | PRODUCT | [id number] | | [facility] | | | UNIT [...] + + + + | EXPIRATION | [id number] | | [facility] | | | DATE [...] + + + + | BLOOD | [id number] | | [facility] | | | PRODUCT [...] | + + + + + | [facility] | [address] | [place] [address] | | | SERVICES, | [address] [...] + + + + | PRODUCT | [id number] | | [facility] | | | UNIT [...] + + + + | EXPIRATION | [id number] | | [facility] | | | DATE [...] + + + + | BLOOD | [id number] | | [facility] | | | PRODUCT [...] [facility] | [address] | [place] [address] | | | SERVICES, | [address] [...] + + + + | PRODUCT | [id number] | | [facility] | | | UNIT [...] + + + + | EXPIRATION | [id number] | | [facility] | | | DATE [...] + + + + | BLOOD | [id number] | | [facility] | | | PRODUCT [...] [facility] | [address] | [place] [address] | | | SERVICES, | [address] [...] | + + + + + | [facility] | [address] | [place] [address] | | | SERVICES, CORE | [address] [...] | | | LABORATORY | | | [facility] | | | SERVICES, | | | [...] | + + + + + | [facility] | [address] | [place] [address] | | | SERVICES, CORE | [address] [...] + + + + | [facility] | [address] [facility] | [place] [address] | | | SERVICES, CORE | PARK [...] [facility] | [address] | [place] [address] | | | SERVICES, CORE | PARK [...] | + + + + + | [facility] | [address] | [place] [address] | | | SERVICES, CORE | VIL[address] [...] | + + + + + | [facility] | [address] | [place] [address] | | | SERVICES, CORE | [address] [...] | | | 08/31/17 at 1849, Until 12/06/17 | | | | | [...] | | | DAILY, First dose on e 12/03/17 | | AM PDT | | [...]
--- OUTSIDE RECORDS SUMMARY | ~2020-02-06 | XMS | Clinical Summary ---
Demographics + + + | Address | [address] | | | [place] [address] | + + + | Home Phone [...] Team Providers + +------+ + | Care Lapel Baster Name | Role | Phone | + +------+ + | No Pcp Per Patient | PCP | Unavailable | + +------+ + Source Comments SELENA is fully live on both [facility] and [facility] Allergies No Known Allergies Medications [...] | / | | MD Magdiel at [facility] | | | | | | [...] | | | | | | | [id number]: Qty: 11 | | | | | | | | on 11/05/2017 by Dayami, | | | | | | | | MD Magdiel at [facility] | | | | | | [...] | | | | | | | [id number]: Qty: | | | | | | | | 1Explanted: Qty: 1 on | | | | | | | | 11/05/2017 at [facility] | | | | | | [...] | | | + +--------+ +--------+-------+---------+--------+ | TALENT DEVELOPMENT COORDINATOR MEDICAID | TALENT DEVELOPMENT COORDINATOR | [id number] | 08/28/19 | | | Medica | [...] Person | Self | [birth year] | | [address] | | | al/Fam | | 1951 | [phone] | [place] [address] | | | taras | | | 8 (Home) | | + +--------+ +--------+ + + | [employer] | Third | Self | [birth year] | | [address] | | | [employer] Party | | 1951 | [phone] | [place] [address] | | | Liabil | | | [...]
--- OUTSIDE RECORDS SUMMARY | ~2020-02-06 | XMS | Encounter Summary ---
Demographics + + + | Address | [address] | | | [place] [address] | + + + | Home Phone [...] + | Author | [facility] | + + + | Organization | [facility] | + + + | Address | Unknown | + + + | Phone | Unavailable | + + + Support + + +---------+ + | Name | Relationship | Address | Phone | + + +---------+ + | Kaylie Baig | ECON | Unknown | | + + +---------+ + Care Team Providers + +------+ + | Care Puff Ironer Name | Role | Phone | + [...] 10/12/ | Surgery | 6A Intra Op [id number] | Chaz Hernandez, | EXPLORATORY | | 2017 | | [address] | [address] | LAPAROTOMY, EGD | | | | Rd [facility] | [facility] | | | | | Hospital Admitting | [place], [place] | | | | | Desk Located on the | [address] | | | | | 9th floor | [phone] | | | | | [place], [place] | | | | | | [address] | | | +--------+---------+ + + + [...] might be d ifferent from the original. [facility] Discharge Summary Discharging Provider: KESHAWN [...] risk for aspiration # nutrition - NPO, LIFE TEACHER evaluating patient when out of c collar [...] - Neurosurgery following peripherally - Must wear SALESPERSON MEATS when OOB, ok for C-collar only when in bed - 12 week collar period up on 11/23, Neurosurgery documented C collar/SALESPERSON MEATS weaning protocol o pete next 5 weeks- [...] DC. He will need home health PT/ OT/LIFE TEACHER, which will not be arranged until next [...] None required Recommended rehabilitation therapies: Home health PT/OT/LIFE TEACHER Discharge Medications: Medication List START taking these [...] [facility]. [...] that I, or Nurse Practitioner or Physician Waybill Clerk working with me, had a face to face encounter with this patient on 12/06/2017 On behalf of Attending Physician: Chaz Hernandez MD I am ordering and certify that the following services are medically necessary [facility] Physical Therapy Evaluate and Treat I am ordering and certify that the following services are medically necessary [facility] Occupational Therapy Evaluate and Treat I am ordering and certify that the following services are medically necessary [facility] Speech Language Pathology Evaluate and Treat I am ordering and certify that the following services are medically necessary home health [facility] Home Health WELLNESS CONSULTANT Evaluate and Treat I certify that the [...] MartinJohn Discharging Surgeon : Magali Elias MD [facility] Division of Acute Care Surgery/Critical Care [address] [place] [address] [phone] signed by Magali Elias MD,MPH at 12/09/2017 [...] Magali Elias MD,MPH at 12/26/2017 6:56 AM Sherine Bautista [facility] - 12/05/2017 11:24 AM PDT . Trauma [...] EOMI Neck: weaning cervical aspen collar & SALESPERSON MEATS per NSG weaning protocol Respiratory: unlabored on [...] Started bolus tube feeds 11/23: Begun C collar/SALESPERSON MEATS weaning 11/28: Psychiatry re-consulted for behavioral issues [...] risk for aspiration # nutrition - NPO, LIFE TEACHER evaluating patient when out of c collar [...] - Neurosurgery following peripherally - Must wear SALESPERSON MEATS when OOB, ok for C-collar only when in bed - 12 week collar period up on 11/23, Neurosurgery documented C collar/SALESPERSON MEATS weaning protocol o pete next 5 weeks- [...] obic coverage Disposition: continue tube feeds, continue LIFE TEACHER evals while c collar off. Started depakote f or agitation with good response. Girlfriend Magali will be visiting today, this is ok per his sister Annita (see social work note). [place] [phone] [facility] [place] [phone] Associated attestation - Magali Elias MD,MPH - [...] EOMI Neck: weaning cervical aspen collar & SALESPERSON MEATS per NSG weaning protocol Respiratory: unlabored on [...] Started bolus tube feeds 11/23: Begun C collar/SALESPERSON MEATS weaning 11/28: Psychiatry re-consulted for behavioral issues [...] risk for aspiration # nutrition - NPO, LIFE TEACHER evaluating patient when out of c collar [...] - Neurosurgery following peripherally - Must wear SALESPERSON MEATS when OOB, ok for C-collar only when in bed - 12 week collar period up on 11/23, Neurosurgery documented C collar/SALESPERSON MEATS weaning protocol o pete next 5 weeks- [...] obic coverage Disposition: continue tube feeds, continue LIFE TEACHER evals while c collar off. Started depakote f or agitation with good initial response. Pending placement [place] adult [place] [address] [facility] [place] [address] [address] [place] [phone] Associated attestation - Magali Elias MD,MPH - 12/04/2017 2:23 PM PDTI was present and rounded with the ANP Sherine Sarmiento today. I interviewed and examined the patient. I reviewed the history, as documented today. I participated in the development of and agree wi th the assessment and plan. Much less agitated. Continue current care. Sherine Sarmiento, [facility] - 12/03/2017 6:30 AM PDTFormatting of this [...] Started bolus tube feeds 11/23: Begun C collar/SALESPERSON MEATS weaning 11/28: Psychiatry re-consulted for behavioral issues [...] risk for aspiration # nutrition - NPO, LIFE TEACHER evaluating patient when out of c collar [...] - Neurosurgery following peripherally - Must wear SALESPERSON MEATS when OOB, ok for C-collar only when in bed - 12 week collar period up on 11/23, Neurosurgery documented C collar/SALESPERSON MEATS weaning protocol o pete next 5 weeks- [...] obic coverage Disposition: continue tube feeds, continue LIFE TEACHER evals while c collar off. Starting depakote for agitation. Pending placement at adult foster home Sherine Sarmiento, [place] [address] [phone] [facility] [place] [address] [place] [address] [phone] Associated attestation - Magali Elias MD,MPH - [...] . Ok to resume feeds. Ad Callejas [id number] rafts, Venita Rod PA-C - 12/02/2017 10:55 [...] Started bolus tube feeds 11/23: Begun C collar/SALESPERSON MEATS weaning 11/28: Psychiatry re-consulted for behavioral issues [...] risk for aspiration # nutrition - NPO, LIFE TEACHER evaluating patient when out of c collar [...] - Neurosurgery following peripherally - Must wear SALESPERSON MEATS when OOB, ok for C-collar only when [...] obic coverage Disposition: continue tube feeds, continue LIFE TEACHER evals while c collar off. Optimize sleep. Venita Pruitt PA-[place] [phone] [place] [phone] [facility] [place] [address] [place] [facility] [place] [address] [phone] Associated attestation - Magali Elias MD,MPH - [...] Started bolus tube feeds 11/23: Begun C collar/SALESPERSON MEATS weaning 11/28: Psychiatry re-consulted for behavioral issues [...] risk for aspiration # nutrition - NPO, LIFE TEACHER evaluating patient when out of c collar [...] - Neurosurgery following peripherally - Must wear SALESPERSON MEATS when OOB, ok for C-collar only when [...] obic coverage Disposition: continue tube feeds, continue LIFE TEACHER evals while c collar off. Going back on hald ol for aggression. Optimize sleep. Venita Pruitt PA-C [place] [phone] [place] [phone] [place] [facility] [phone] Associated attestation - Nubia Nieto MD,MPH - 12/01/2017 2:17 PM PDTATTENDING ADDENDU M: I personally interviewed and examined the patient today with the trauma team and the physic gabriela tv production assistant. I participated in the development of and agree with the assessment and plan. 1. Scheduled haloperidol BID 5mg. Plus PRN 2. Continue LIFE TEACHER evaluation 3. Melatonin for qHS sleep Nubia Nieto MD, MPH Attending Surgeon Trauma, Critical Care & Acute Care Surgery [facility] [phone] Monse Carrasco MD,MPH - 11/30/2017 10:43 AM [...] EOMI Neck: intermittently in aspen collar and SALESPERSON MEATS Respiratory: unlabored on room air CV: regular [...] Started bolus tube feeds 11/23: Begun C collar/SALESPERSON MEATS weaning 11/28: Psychiatry re-consulted for behavioral issues [...] risk for aspiration # nutrition - NPO, LIFE TEACHER evaluating patient when out of c collar [...] - Neurosurgery following peripherally - Must wear SALESPERSON MEATS when OOB, ok for C-collar only when [...] obic coverage Disposition: continue tube feeds, continue LIFE TEACHER evals while c collar off. Optimize sleep. Monse Carrasco MD MPH [facility] [address] [phone] Associated attestation - Shlomo Bravo MD - 12/05/2017 10:55 AM PDTI saw and examined Charli Temple ([id number]) with the TRAUMA team on 11/30/2017. I agree with the assessment and plan a s outlined in this note and participated in the planning of care. I have personally reviewed all pertinent labarotory findings, radiographs, and physiologic parameters. I personally pe rformed pertinent parts of the physical examination and personally formulated the plan with the TRAUMA team. Shlomo Bravo MD Configuration Consultant Division of Trauma and Critical Care Monse [...] scalp, EOMI Neck: in aspen collar and SALESPERSON MEATS Respiratory: unlabored on room air CV: regular [...] Started bolus tube feeds 11/23: Begun C collar/SALESPERSON MEATS weaning 11/28: Psychiatry re-consulted for behavioral issues [...] risk for aspiration # nutrition - NPO, LIFE TEACHER evaluating patient when out of c collar [...] - Neurosurgery following peripherally - Must wear SALESPERSON MEATS when OOB, ok for C-collar only when [...] obic coverage Disposition: continue tube feeds, continue LIFE TEACHER evals and c collar weaning. Optimize sleep Monse Carrasco MD MPH [facility] [place] [address] [phone] Associated attestation - Brian Painting MD - 12/08/2017 7:33 PM PDTAttending: I saw and examined Diogenes Temple ([id number]) with the residents on 11/29/17 and agree with th e assessment and plan as outlined in this note and participated in the planning of care. Brian Painting MD FACS curriculum specialist Division of Trauma, Critical Care & Acute [...] scalp, EOMI Neck: in aspen collar and SALESPERSON MEATS Respiratory: unlabored on room air CV: regular [...] Started bolus tube feeds 11/23: Begun C collar/SALESPERSON MEATS weaning 11/28: Psychiatry re-consulted for behavioral issues [...] risk for aspiration # nutrition - NPO, LIFE TEACHER evaluating patient when out of c collar [...] - Neurosurgery following peripherally - Must wear SALESPERSON MEATS when OOB, ok for C-collar only when [...] obic coverage Disposition: continue tube feeds, continue LIFE TEACHER evals and c collar weaning Monse Carrasco MD MPH [facility] [place] [phone] Associated attestation - Brian Painting MD - 11/28/2017 11:06 PM PDTAttending: I saw and examined Diogenes Temple ([id number]) with the residents on 11/28/17 and agree with e assessment and plan as outlined in this note and participated in the planning of care. Brian Painting MD FACS curriculum specialist Division of Trauma, Critical Care & Acute Care Surgery Fernando Li PA - 11/27/2017 3:32 PM PDTFormatting of this note might be differe nt from the original. NEUROSURGERY INPATIENT PROGRESS NOTE Hospital Day:88 Author; DIANNA SCHULTZC Attending Physician: Chaz Hernandez MD Neurosurgery: Magdiel Stock MD Interval Hx: -No events overnight -In process of SALESPERSON MEATS weaning. Denies neck pain. Physical Exam: Last [...] Patient being managed in C collar and SALESPERSON MEATS. -Patient developed drainage from previous crani site [...] imary Team. -Instructions have been provided for SALESPERSON MEATS weaning. -Patient's exam stable. Denies Neck pain. Repeat imaging stable. Scalp incision healing well. -Please contact our service if there are any questions or need to re-consult. -No outpatient Neurosurgery FU needed. CAITIE SCHULTZ-Merle [facility] [address] [place] [address] [address]g [phone] MEDICATIONS Current Facility-Administered Medications Medication acetaminophen (TYLENOL) [...] scalp, EOMI Neck: in aspen collar and SALESPERSON MEATS Respiratory: unlabored on room air CV: regular [...] Started bolus tube feeds 11/23: Begun C collar/SALESPERSON MEATS weaning Active issues/Plan: # BIG 3 TBI [...] risk for aspiration # nutrition - NPO, LIFE TEACHER evaluating patient when out of c collar [...] - Neurosurgery following peripherally - Must wear SALESPERSON MEATS when OOB, ok for C-collar only when [...] obic coverage Disposition: continue tube feeds, continue LIFE TEACHER evals and c collar weaning CHRISTIAN KELLEY PA-C [facility] [address] [address] [phone] Associated attestation - Brian Painting MD - 11/27/2017 8:50 PM PDTAttending: I saw and examined Diogenes Temple ([id number]) with Christian Kelley PA-C on 11/27/17 and agree wi th the assessment and plan as outlined in this note and participated in the planning of care . Increase melatonin and trazodone for insomnia. Enteral feeding via PEG tube for dysphagia. Disposition planning. Brian Painting MD FACS curriculum specialist Division of Trauma, Critical Care & Acute Care Surgery [facility], Venita Rod PA-C - 11/26/2017 6:25 AM [...] Weaning C- collar based on NSG plan LIFE TEACHER continues to follow Current meds: I have [...] Started bolus tube feeds 11/23: Begun C collar/SALESPERSON MEATS weaning Active issues/Plan: # BIG 3 TBI [...] risk for aspiration # nutrition - NPO, LIFE TEACHER evaluating patient when out of c collar [...] - Neurosurgery following peripherally - Must wear SALESPERSON MEATS when OOB, ok for C-collar only when [...] looking for placement Venita Pruitt PA-C [place] [phone] [facility] [place] [address] [place] [facility] [place] [address] Associated attestation - Brian Painting MD - 11/26/2017 8:52 PM PDTAttending: I saw and examined Diogenes Temple ([id number]) with Venita Pruitt PA-C on 11/26/17 and agree wi th the assessment and plan as outlined in this note and participated in the planning of care . Continue enteral feeding via PEG tube due to dysphagia. Speech pathology continues to foll ow. Maintain cervical immbolization collar while in bed for C7 bilateral lamina fractures. D ischarge planning. Brian Painting MD FACS curriculum specialist Division of Trauma, Critical Care & Acute [...] Weaning C- collar based on NSG plan LIFE TEACHER continues to follow Current meds: I have [...] Started bolus tube feeds 11/23: Begun C collar/SALESPERSON MEATS weaning Active issues/Plan: # BIG 3 TBI [...] risk for aspiration # nutrition - NPO, LIFE TEACHER evaluating patient when out of c collar [...] - Neurosurgery following peripherally - Must wear SALESPERSON MEATS when OOB, ok for C-collar only when [...] lar weaning, CM looking for placement Venita L. Crafts, PA-[place] [phone] [facility] [place] [address] [address] [facility] [place] [facility] [phone] Associated attestation - Brian Painting MD - 11/26/2017 11:56 AM PDTAttending: I saw and examined Diogenes Temple ([id number]) with Venita Pruitt PA-C on 11/25/17 and agree wi th the assessment and plan as outlined in this note and participated in the planning of care . Continue bolus enteral feeding via PEG tube for dysphagia. Trazodone and quetiapine for tr aumatic encephalopathy and agitation. Maintain cervical immbolization collar while in bed. Brian Painting MD FACS curriculum specialist Division of Trauma, Critical Care & Acute [...] events: No acute events overnight Worked with LIFE TEACHER yesterday - remains NPO Doing well with c collar/industrial relations director weaning plan Current meds: I have [...] midline right scalp, EOMI Neck: in [place] collar Chest: in SALESPERSON MEATS Respiratory: unlabored on room air CV: regular [...] Started bolus tube feeds 11/23: Begun C collar/SALESPERSON MEATS weaning Active issues/Plan: # BIG 3 TBI [...] risk for aspiration # nutrition - NPO, LIFE TEACHER evaluating patient when out of c collar [...] - Neurosurgery following peripherally - Must wear SALESPERSON MEATS when OOB, ok for C-collar only when [...] CM looking for placement CHRISTIAN KELLEY PA-C [facility] [place] [address] [address] [facility] [address] [phone] Associated attestation - Santos Weiss MD - [...] with speech toward being able to swallow. [id number] Christian Kelley PA-C - 11/23/2017 12:26 PM [...] overnight Planning to begin C collar and SALESPERSON MEATS weaning plan Current meds: I have independently [...] midline right scalp, EOMI Neck: in [place] collar Chest: in SALESPERSON MEATS Respiratory: CTA bilaterally, lungs symmetrical, equal chest [...] Started bolus tube feeds 11/23: Begun C collar/SALESPERSON MEATS weaning Active issues/Plan: # BIG 3 TBI [...] risk for aspiration # nutrition - NPO, LIFE TEACHER following - PEG tube feeds switched to goal @ 250 mL x 5/day, 225ml free water flushes 5x/day - LIFE TEACHER to work with patient on swallow while [...] - Neurosurgery following peripherally - Must wear SALESPERSON MEATS when OOB, ok for C-collar only when [...] agitation & sleep management CHRISTIAN KELLEY PA-C [facility] [place] [phone] [facility] - 11/22/2017 6:37 AM PDTFormatting of this [...] risk for aspiration # nutrition - NPO, LIFE TEACHER following - PEG tube feeds switched to [...] - Neurosurgery following peripherally - Must wear SALESPERSON MEATS when OOB, ok for C-collar only when [...] agitation & sleep [place] [address] [facility] [place] [address] [place] [address] [phone] Associated attestation - Fidelina Shields MD - 11/25/2017 5:51 AM PDTAttending: I saw and examined Diogenes Temple ([id number]) with KESHAWN Alexander on mornin g rounds 11/22/17 and agree with the assessment and plan as outlined in this note and partic ipated in the planning of care. This is a late entry for care provided on that date. Sleep is somewhat improved with adjusted medication regimen. Increasing mobility. Plan c-c ollar weaning per neurosurgery recs. Fidelina Shields MD Cost Control Specialist Division of Trauma, Critical Care and Acute Care Surgery Office: [phone] Pager: [phone] Fernando Li PA - 11/21/2017 4:21 PM PDTNeurosurgery Brief Note: Reviewed repeat imaging C spine. Ok to start C Collar and SALESPERSON MEATS taper as planned on 11/23/17. Written 5 [...] complain ts of neck pain with taper. EFRNANDO LI PA-C [facility] [address] [facility] [place] [address] emo Sarmiento AGACNP - 11/21/2017 6:52 AM [...] risk for aspiration # nutrition - NPO, LIFE TEACHER following - PEG tube feeds switched to [...] - Neurosurgery following peripherally - Must wear SALESPERSON MEATS when OOB, ok for C-collar only when [...] Sleep & agitation [place] [phone] [facility] [place] [address] [phone] Associated attestation - Fidelina Shields MD - 11/21/2017 2:27 PM PDTAttending: I saw and examined Diogenes Temple ([id number]) with KESHAWN Alexander on mornin g rounds [...] mobility and daytime wakefullness. Fidelina Shields MD Cost Control Specialist Division of Trauma, Critical Care and Acute Care Surgery Office: [phone] Pager: [phone] Venita Pruitt PA-C - 11/20/2017 12:31 PM [...] risk for aspiration # nutrition - NPO, LIFE TEACHER following - PEG tube feeds switched to [...] - Neurosurgery following peripherally - Must wear SALESPERSON MEATS when OOB, ok for C-collar only when [...] seroquel as needed. Venita Pruitt PA-C [place] [phone] [place] [phone] [facility] [address] [place] [facility] [phone] Associated attestation - Fidelina Shields MD - [...] Placement remains a challenge. Fidelina Shields MD Cost Control Specialist Division of Trauma, Critical Care and Acute Care Surgery Office: [phone] Pager: [phone] Fernando Li PA - 11/20/2017 10:51 AM [...] Patient being managed in C collar and SALESPERSON MEATS. -Patient developed drainage from previous crani site [...] Spine immobilization. Cervical collar while in bed, SALESPERSON MEATS when OOB planned duration of immobilization 12 weeks total: 11/23/17. Will then wean out of Cervical collar over 5 week period. Will provide written instructions. FERNANDO LI PA-C [facility] [address] [facility] [place] [address] Pg [phone] MEDICATIONS Current Facility-Administered Medications Medication acetaminophen (TYLENOL) [...] risk for aspiration # nutrition - NPO, LIFE TEACHER following - PEG tube feeds switched to [...] - Neurosurgery following peripherally - Must wear SALESPERSON MEATS when OOB, ok for C-collar only when [...] seroquel as needed. Venita Pruitt PA-C [place] [phone] [facility] [address] [place] [facility] [phone] Associated attestation - Fidelina Shields MD - 11/19/2017 2:24 PM PDTAttending: I saw and examined Diogenes Temple with Venita Pruitt PA-C on morning rounds 11/19/17 and ag ree with the assessment and plan as outlined in this note and participated in the planning o f care. Adjusting antipsychotic medication and behavioral interventions while we search for suitabl e discharge plan. Fidelina Shields MD Cost Control Specialist Division of Trauma, Critical Care and Acute Care Surgery Office: [phone] Pager: [phone] Fernando Li PA - 11/18/2017 9:03 AM [...] Patient being managed in C collar and SALESPERSON MEATS. -Patient developed drainage from previous crani site [...] Spine immobilization. Cervical collar while in bed, SALESPERSON MEATS when OOB planned duration of immobilization 12 weeks total: 11/23/17. Will then wean out of Cervical collar over 5 week period. Will provide written instructions. FERNANDO LI PA-C [facility] [address] [facility] [place] [address] Pg [phone] MEDICATIONS Current Facility-Administered Medications Medication acetaminophen (TYLENOL) [...] risk for aspiration # nutrition - NPO, LIFE TEACHER following - PEG tube feeds switched to [...] - Neurosurgery following peripherally - Must wear SALESPERSON MEATS when OOB, ok for C-collar only when in bed - Will likely need for 12 weeks (ends November 23), then wean out of Cervical collar over 5 w apache period. Per NSG they will provide written [...] haldol as tolerated Venita Pruitt PA-C [place] [phone] [facility] [address] [place] [facility] [phone] Associated attestation - Fidelina Shields MD - 11/19/2017 12:18 AM PDTAttending: I saw and examined Diogenes Temple with Venita Pruitt PA-C on morning rounds 11/18/17 and ag ree with the assessment and plan as outlined in this note and participated in the planning o f care. Mental status continues to wax/wane, working on disposition options. Fidelina Shields MD Cost Control Specialist Division of Trauma, Critical Care and Acute Care Surgery Office: [phone] Pager: [phone] Sherine Sarmiento AGACNP - 11/17/2017 10:49 AM [...] risk for aspiration # nutrition - NPO, LIFE TEACHER following - PEG tube feeds switched to goal @ 275 mL x 5/day, 200ml free water flushes 5x/day # insomnia - melatonin 3mg qhs - Haldol 5mg Qhs - Trazadone increased from 50 [id number] QHS with no effect - Start Quetiapine 50mg QHS with 25mg Q12hrs PRN, with the goal of uptitrating seroquel and weaning off haldol - ECG 11/17 QTC 427 #Relative hypotension - Improving after initiation of free water flushes - Orthostatics negative # 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 Per NSG they will provide written [...] effect, will add seroquel today Sherine Sarmiento, [facility] [place] [phone] [facility] [place] [address] [phone] Associated attestation - Em Cunningham MD - 11/27/2017 9:13 PM PDTI was present and rou nded with the Advanced Practice Provider today. I interviewed and examined the patient. I reviewed the history, as documented today. I agree with the ASHLEY assessment and plan. Con tinue abx for epidural abscess. LIFE TEACHER is continuing to follow. Continue feeding via PEG. May onin for insomnia. Must weat SALESPERSON MEATS when OOB. EM CUNNINGHAM MD [facility] [address] [place] [address] Sherine Sarmiento, AGACN - 11/16/2017 12:22 PM [...] risk for aspiration # nutrition - NPO, LIFE TEACHER following - PEG tube feeds switched to goal @ 275 mL x 5/day, 200ml free water flushes 5x/day # insomnia - melatonin 3mg qhs - Haldol 5mg Qhs - Will increase trazadone from 50 aq692nd QHS #Relative hypotension - Improving after initiation of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 removed by patient, but wound remains duke n/dry/intact. Corrigan removed 09/17. #Left hemothorax Chest tube placed [...] will decrease [place] [phone] Associated attestation - Fidelina Shields MD - 10/02/2017 4:40 PM PDTAttending: I saw and examined Diogenes Temple ([id number]) with KESHAWN Alexander on mornin g rounds [...] drawn back to midline position. May need agricultural loan officer enteral access , but is ~4 weeks s/p damage control laparotomy and risk is higher now than it will be in 7- 14 days and if swallow is not improving then will place prior to DC Fidelina Shields MD Cost Control Specialist Division of Trauma, Critical Care and Acute Care Surgery Office: [phone] Pager: [phone] Sherine Sarmiento AGACNP - 10/01/2017 7:27 AM [...] from previous TBI ) Neck: in [place] collar Respiratory: CTA bilaterally, lungs symmetrical, equal chest wall rise, no retractions CV: RRR GI: non tender, soft, active BS, last BM 09/30 : Patient voiding without difficulty Extremities: no peripheral edema, wiggles toes and toes pink and well perfused Musculoskeletal: 5/5 crime analyst strength on right, 3/5 crime analyst strength on left FEN: on TPN Heme/ID: [...] AMS & delirium - numerous evaluations by LIFE TEACHER with trials of PO - now s/p modified barium swallow x2 which indicates aspiration - continue NPO - LIFE TEACHER reports that patient working on tongue strength [...] . - C-collar at all times, use SALESPERSON MEATS when OOB - Follow-up with Neurosurgery on 10/21 with repeat X-rays #Blunt abdominal trauma #Splenic laceration S/p laparotomies x2. Fascia closed 09/02 Wound vac removed by patient, but wound remains duke n/dry/intact. Corrigan removed 09/17. #Left hemothorax Chest tube placed [...] trauma team [place] [phone] Associated attestation - Fidelina Shields MD - 10/02/2017 4:40 PM PDTAttending: I saw and examined Diogenes Temple ([id number]) with KESHAWN Alexander on mornin g rounds 10/01/17 and agree with the assessment and plan as outlined in this note and partic ipated in the planning of care. Will trial DHT placement today, CT head unchanged. Suspect somnolence is medication side ef fect and, if persistent, may need to wean antipsychotic doses. Fidelina Shields MD Cost Control Specialist Division of Trauma, Critical Care and Acute Care Surgery Office: [phone] Pager: [phone] Christian Kelley PA-C - 09/30/2017 12:21 PM [...] 3 results) - Refreshable Recent Labs 09/28/1745709/29/17 0430 09/29/17 2218 09/30/17 0443 09/30/17 0626 [...] and dilated on left Neck: in [place] collar Respiratory: CTA bilaterally, lungs symmetrical, equal chest wall rise, no retractions CV: RRR GI: non tender, soft, active BS, last BM 09/30 : Patient voiding without difficulty Extremities: no peripheral edema, wiggles toes and toes pink and well perfused Musculoskeletal: 5/5 crime analyst strength on right, 3/5 crime analyst strength on left FEN: on TPN Heme/ID: [...] AMS & delirium - numerous evaluations by LIFE TEACHER with trials of PO - now s/p modified barium swallow x2 which indicates aspiration - continue NPO - LIFE TEACHER reports that patient working on tongue strength [...] . - C-collar at all times, use SALESPERSON MEATS when OOB - Follow-up with Neurosurgery on 10/21 with repeat X-rays #Blunt abdominal trauma #Splenic laceration S/p laparotomies x2. Fascia closed 09/02 Wound vac removed by patient, but wound remains duke n/dry/intact. Corrigan removed 09/17. #Left hemothorax Chest tube placed [...] PDTAttending: I saw and examined Diogenes Temple ([id number]) with Christian Kelley PA-C on morning rounds 09/30 and agree with the assessment and plan as outlined in this note and participated in the planning of care. Mentally slower this morning, but non-focal. Received haldol overnight for sleep. Repeat head CT was unchanged so suspect etiology of slowed responsiveness is the antipsychotic dose . LIFE TEACHER believes that, once collar off, may be able to take PO more effectively and thus will hold off on surgical feeding access. TPN is a temporary solution and if patient remains kaye nable will trial DHT tomorrow. Working with psychiatry for medication recommendations. Fidelina Shields MD Cost Control Specialist Division of Trauma, Critical Care and Acute Care Surgery Office: [phone] Pager: [phone] July Harp PA-C - 09/30/2017 8:23 AM PDTBrief Neurosurgery Wound Check: Wound is dry, without erythema, not fluctuant. No acute swelling. Nylon in place. Will plan to follow peripherally for wound checks and remove nylons on 10/09. JULY HARP PA-C [facility] [address] [place] [address] Christian Begum PA-C - 09/29/2017 7:15 AM [...] EOMs intact to exam Neck: in [place] collar Respiratory: CTA bilaterally, lungs symmetrical, equal [...] AMS & delirium - numerous evaluations by LIFE TEACHER with trials of PO - now s/p [...] . - C-collar at all times, use SALESPERSON MEATS when OOB - Follow-up with Neurosurgery on [...] PDTAttending: I saw and examined Diogenes Temple ([id number]) with Christian Kelley PA-C on morning rounds 09/29 and agree with the assessment and plan as outlined in this note and participated in the planning of care. Late entry for 09/29/17. Persistent alterations in conscious and dysphagia. Hopefully with ongoing speech therapy a nd when clear to take c-collar off, will improve ability to take PO. While TPN is not an opt imal [facility]ent[facility] strategy, would prefer not to place surgical feeding tube if possible given r elatively recent damage control laparotomy and high risk of Mr. Temple pulling it out. Have tried DHT several times and it seems to worsen delirium and he pulls it out frequently. Tit ration of haldol in conjunction with psychiatry. Fidelina Shields MD Cost Control Specialist Division of Trauma, Critical Care and Acute Care Surgery Office: [phone] Pager: [phone] Christian Kelley PA-C - 09/28/2017 1:01 PM [...] he said, who, ariel? And then the MECHANICAL MAINTENANCE INSTRUCTOR helped him make a call to her. [...] EOMs intact to exam Neck: in [place] collar Respiratory: CTA bilaterally, lungs symmetrical, equal [...] very agitated today. - EKG today with [place] QTc calculated to be 428 - optimize [...] AMS & delirium - numerous evaluations by LIFE TEACHER with trials of PO - now s/p [...] . - C-collar at all times, use SALESPERSON MEATS when OOB - Follow-up with Neurosurgery on 10/21 with repeat X-rays #Blunt abdominal trauma #Splenic laceration S/p laparotomies x2. Fascia closed 09/02 Wound vac removed by patient, but wound remains duke n/dry/intact. Corrigan removed 09/17. #Left hemothorax Chest tube placed [...] more toda y. Chaz Hernandez MD, FACS Cost Control Specialist, Trauma, Critical Care and Acute Care Surgery Chaz Hernandez MD - 09/28/2017 10:13 AM PDTTrauma Staff Seen and examined this AM with team. I have concerns abotu behaviour, as he is consistently threatening RN and ancillary staff, even attempting swings. Behavior seems worse at night. I would favor increasing night time Haldol dose, and following EKGs. Chaz Hernandez MD, FACS Cost Control Specialist, Trauma, Critical Care and Acute Care [...] Dallin Bourgeois MD Neurosurgery PGY1 | Pager #[phone] Christian Begum PA-C - 09/27/2017 7:31 AM [...] able to have a linear conversation briefly LIFE TEACHER requesting repeat barium swallow Current meds: I [...] incision healing , suture c/d/I Neck: in SALESPERSON MEATS Respiratory: unlabored on room air, lungs symmetrical, [...] AMS & delirium - numerous evaluations by LIFE TEACHER with trials of PO - now s/p [...] . - C-collar at all times, use SALESPERSON MEATS when OOB - Follow-up with Neurosurgery on 10/21 with repeat X-rays #Blunt abdominal trauma #Splenic laceration S/p laparotomies x2. Fascia closed 09/02 Wound vac removed by patient, but wound remains duke n/dry/intact. Corrigan removed 09/17. #Left hemothorax Chest tube placed [...] cotinue TPN for now. EM CUNNINGHAM MD [facility] [address] [place] [address] Christian Kelley PA-C - 09/26/2017 6:48 AM [...] scalp crani incision c/d/I Neck: in [place] collar Respiratory: unlabored on room air CV: [...] AMS & delirium - numerous evaluations by LIFE TEACHER with trials of PO - now s/p [...] . - C-collar at all times, use SALESPERSON MEATS when OOB - Follow-up with Neurosurgery on [...] Continue NPO and TPN. EM CUNNINGHAM MD [facility] [address] [place] [address] Christian Kelley PA-C - 09/25/2017 7:49 AM [...] HEENT: EOMs intact to exam Neck: in SALESPERSON MEATS brace Respiratory: unlabored on room air CV: [...] AMS & delirium - numerous evaluations by LIFE TEACHER with trials of PO - now s/p [...] . - C-collar at all times, use SALESPERSON MEATS when OOB - Follow-up with Neurosurgery on [...] LFTS wnl. Continue TPN. EM CUNNINGHAM MD [facility] [address] [place] [address] Christian Kelley PA-C - 09/24/2017 11:07 AM PDTFormatting of this note might be different fro m the original. Trauma Acute Care - Progress Note Name: DIOGEENS TEMPLE HPI: Diogenes Temple is a67 y.o. [...] with agitation Having difficulty swallowing again - LIFE TEACHER to re-eval and obtain barium swallow Current [...] HEENT: EOMs intact to exam Neck: in SALESPERSON MEATS brace Respiratory: CTA bilaterally, lungs symmetrical, equal chest wall rise, no retractions CV: RRR GI: non distended, last BM 09/23 : good urine output Extremities: SCD's in place, no peripheral edema, wiggles toes and toes pink and well perfu sed Musculoskeletal: 5/5 strength in bilateral crime analyst (but with slightly weaker on left) , [...] dose QHS for insomnia/restlessness at [facility] - Haldol 5mg q12hr prn for [...] likely 2/2 AMS & delirium - Failed LIFE TEACHER eval 09/19 & 09/20, made NPO & dobhoff reinserted 09/21 but pulled overnight - Per LIFE TEACHER on 09/21, ok for therapeutic pureed with [...] . - C-collar at all times, use SALESPERSON MEATS when OOB - Follow-up with Neurosurgery on 10/21 with repeat X-rays #Blunt abdominal trauma #Splenic laceration S/p laparotomies x2. Fascia closed 09/02 Wound vac removed by patient, but wound remains duke n/dry/intact. Corrigan removed 09/17. #Left hemothorax Chest tube placed [...] Start abx for dehiscence. EM CUNNINGHAM MD [facility] [address] [place] [address] Ginette Campos PA-C - 09/24/2017 9:31 AM [...] 4 extremities Unable to assess drift. Motor: Seed Laboratory Technician Bicep Tricep Delt R 5 5 [...] Campos PA-C [facility] [address] [place] [id number] cGabriel Atkins AGACNP - 09/23/2017 6:32 AM PDT [...] hiscence, draining minimal serosang fluid Neck: in SALESPERSON MEATS brace Respiratory: unlabored on room air CV: [...] dose QHS for insomnia/restlessness at [facility] - Repeat ECG 09/22 with QTc [...] likely 2/2 AMS & delirium - Failed LIFE TEACHER eval 09/19 & 09/20, made NPO & dobhoff reinserted 09/21 but pulled overnight - Per LIFE TEACHER on 09/21, ok for therapeutic pureed with [...] . - C-collar at all times, use SALESPERSON MEATS when OOB - Follow-up with Neurosurgery on [...] dysphagia & delir ium improves Sherine Sarmiento, [facility] [place] [phone] Dallin Deshpande MD - 09/22/2017 8:03 AM [...] Dallin Bourgeois MD Neurosurgery PGY1 | Pager #[phone] [facility], [facility] - 09/22/2017 6:52 AM PDTFormatting of this note might be different from the orig ina. Trauma Acute Care - Progress Note Name: [...] 24hr events: - Therapeutic purees initiated by LIFE TEACHER yesterday - Trickle feeds via Dobbhoff, pt pulled Dobbhoff yesterday evening- not replaced - KILN HAND called around 2130 for new left facial droop (see separate notes), CT revealed increa se in SDH from 12 to 17mm with no change in midline shift. Exam stabilized post CT per javier ight team - NSG and stroke team [...] Slight left facial droop Neck: in [place] collar Respiratory: unlabored on room air CV: [...] dose QHS for insomnia/restlessness at [facility]- - Repeat ECG 09/22 with Q Tc WNL. - Haldol 5mg q12hr prn for severe agitation #Substance abuse, concern for Alcohol withdrawal - CIWA discontinued 09/08, not scoring. - Thiamine & folate started 09/21 #Dysphagia, risk for aspiration #Protein calorie malnutirtion - likely 2/2 AMS & delirium - Failed LIFE TEACHER eval 09/19 & 09/20, made NPO & dobhoff reinserted 09/21 but pulled overnight - Per LIFE TEACHER on 09/21, ok for therapeutic pureed with [...] . - C-collar at all times, use SALESPERSON MEATS when OOB - Follow-up with Neurosurgery on 10/21 with repeat X-rays #Blunt abdominal trauma #Splenic laceration S/p laparotomies x2. Fascia closed 09/02 Wound vac removed by patient, but wound remains duke n/dry/intact. Corrigan removed 09/17. #Left hemothorax Chest tube placed [...] when dysphagia & delirium improves Sherine Sarmiento, [facility] Pg [phone] Associated attestation - Nubia Nieto MD,MPH - [...] Care & Acute Care Surgery [facility] [phone] Sami Black Merle - 09/21/2017 10:25 PM [...] in the morning. Plan: -neuro checks; page [phone] for any decline in neurological examination -pain control -Hard C collar at all times and place SALESPERSON MEATS prior to mobilizing OOB. Anticipated duration of Collar/SALESPERSON MEATS is 12 weeks -repeat CT head for any new decline in neurological exam and page [phone] -NPO at midnight tonight -please hold tonight's planned dose of Lovenox -further recommendations in the morning Sami Black MD, PhD PGY-3 Resident Neurosurgery [id number] signed by Sami Black at 09/21/2017 10:50 PM [facility] - 09/21/2017 7:10 AM PDTFormatting of this [...] Provena placem ent 24hr events: - Failed LIFE TEACHER eval again yest morning, continued NPO - [...] Dobbhoff tube in place Neck: in [place] collar Respiratory: unlabored on room air CV: [...] likely 2/2 AMS & delirium - Failed LIFE TEACHER eval 09/19 & 09/20, made NPO & dobhoff reinserted yesterday - Trickle feeds started this am at 20ml/hr, increase very slowly by 10ml every 12 hrs to go al of 75 due to hx of mesenteric hematomas and previous inability to tolerate TF - Per LIFE TEACHER today, ok for therapeutic pureed with nectar [...] . - C-collar at all times, use SALESPERSON MEATS when OOB - Follow-up with Neurosurgery on [...] & delirium [place] [phone] Associated attestation - Fidelina Shields MD - 09/21/2017 9:36 PM PDTAttending: I saw and examined Diogenes Temple ([id number]) with KESHAWN Alexander on mornin g rounds [...] enough to re-trial PO. Fidelina Shields MD Cost Control Specialist Division of Trauma, Critical Care and Acute Care Surgery Office: [phone] Pager: [phone] Sherine Sarmiento AGACNP - 09/20/2017 7:41 AM [...] haldol given yesterday afternoon for agitation - LIFE TEACHER paged to re-eval in afternoon after concern for aspiration, made NPO by LIFE TEACHER - DARNELL SOLANO Current meds: I have [...] pupil 3 and reactive Neck: in [place] collar Respiratory: unlabored on room air CV: [...] thick/pureed d iet. Made NPO yesterday by LIFE TEACHER after concern for aspiration. This is likely 2/2 waxing & wan ing delirium & AMS - LIFE TEACHER re-eval today recommend continue NPO d/t overt clinical signs of aspiration - Place Dobbhoff tube and restart feeds, slowly progress to goal - Stop TPN when tolerating tube feeds - LIFE TEACHER will follow closely, as his AMS improves [...] . - C-collar at all times, use SALESPERSON MEATS when OOB - Follow-up with Neurosurgery on [...] & delirium [place] [phone] Associated attestation - Fidelina Shields MD - 09/20/2017 9:34 PM PDTAttending: I saw and examined Diogenes Temple ([id number]) with KESHAWN Alexander on mornin g rounds [...] dispo planning when able. Fidelina Shields MD Cost Control Specialist Division of Trauma, Critical Care and Acute Care Surgery Office: [phone] Pager: [phone] Mary Medrano MD,MPH - 09/19/2017 6:22 AM [...] downgraded from thin to thick liquids by LIFE TEACHER Current meds: I have independently reviewed current [...] small Right fluctuant pseudomeningocele Neck: in [place] collar Respiratory: unlabored on room air CV: [...] DHT on09/19. - Cleared for diet by LIFE TEACHER, tolerating purees, 749 Calories yesterday - Restart Calorie count: if taking >700 again will be OK for full po diet, otherwise replac e DHT and restart TF - Stop TPN tomorrow regardless - Still considering repeat CT abdomen/pelvis #Dysphagia DHTreplaced overnight 09/07. TF held due to emesis and possible ileus, aspiration risk. DH T pulled overnight on 09/18 - LIFE TEACHER as able Resolved or chronic issues/Plan: #BIG 3 TBI #Right synthetic cranioplasty Neurosurgery consulted. Non-operative management. Last head CT 09/12 stable. Expected pseudo meningocele. Left-sided deficits consistent with baseline. - Stat head CT for any neurologic decline #C7 bilateral lamina fractures #C6-T2 spinous process fractures Neurosurgery consulted. Non-operative management. Upright cervical X-rays completed on 09/14 . - C-collar at all times, use SALESPERSON MEATS when OOB - Follow-up with Neurosurgery on [...] M.D., M.P.H. Neurological Surgery Resident PGY-1 Pager: [phone] Associated attestation - Fidelina Shields MD - 09/19/2017 1:36 PM PDTAttending: I saw and examined Diogenes Temple ([id number]) with the residents on morning rounds 09/19/17 and agree with the assessment and plan as outlined in this note and participated in the plan aashish of care. Improving po intake, will titrate TPN. Plan to DC TPN tomorrow and transition to PO vs PO + TF depending on calorie counts. Once of restraints will begin looking for placement. Fidelina Shields MD Cost Control Specialist Division of Trauma, Critical Care and Acute Care Surgery Office: [phone] Pager: [phone] Mary Medrano MD,MPH - 09/18/2017 6:17 AM [...] pseudomeningocele,Dobhoff tubein p lace Neck: in [place] collar Respiratory: unlabored on room air CV: [...] holding TF - Cleared for diet by LIFE TEACHER, tolerating small quantities of purees - Will need repeat CT A/P within 1-2 days #Hypervolemia I&O approaching even. Appears to have been auto-diuresing. - Continue to monitor urine output - Monitor electrolytes, replete prn #Dysphagia DHTreplaced overnight 09/07. TF held due to emesis and possible ileus, aspiration risk. - LIFE TEACHER as able #C7 bilateral lamina fractures #C6-T2 spinous process fractures Neurosurgery consulted. Non-operative management. Upright cervical X-rays completed on 09/14 . - C-collar at all times, use SALESPERSON MEATS when OOB - Follow-up with Neurosurgery on [...] by patient, but wound remains duke n/dry/intact. Corrigan removed 09/17. #Left hemothorax Chest tube placed [...] M.D., M.P.H. Neurological Surgery Resident PGY-1 Pager: [phone] signed by Fidelina Shields MD at 09/19/2017 3:58 PM PDT Associated attestation - Fidelina Shields MD - 09/19/2017 3:58 PM PDTAttending: I saw and examined Diogenes Temple ([id number]) with the residents on morning rounds 09/18/17 and agree with the assessment and plan as outlined in this note and participated in the plan aashish of care. Fidelina Shields MD Cost Control Specialist Division of Trauma, Critical Care and Acute Care Surgery Office: [phone] Pager: [phone] Mary Medrano MD,MPH - 09/17/2017 6:26 AM [...] pseudomeningocele,Dobhoff tubein p lace Neck: in [place] collar Respiratory: unlabored on room air CV: [...] holding TF - Cleared for diet by LIFE TEACHER, tolerating small quantities of purees #Hypervolemia I&O approaching even. Appears to have been auto-diuresing. - Continue to monitor urine output - Monitor electrolytes, replete prn #Dysphagia DHTreplaced overnight 09/07. TF held due to emesis and possible ileus, aspiration risk. - LIFE TEACHER as able #C7 bilateral lamina fractures #C6-T2 spinous process fractures Neurosurgery consulted. Non-operative management. Upright cervical X-rays completed on 09/14 . - C-collar at all times, use SALESPERSON MEATS when OOB - Follow-up with Neurosurgery on [...] by patient, but wound remains duke n/dry/intact. Corrigan removed 09/17. #Left hemothorax Chest tube placed [...] M.D., M.P.H. Neurological Surgery Resident PGY-1 Pager: [phone] signed by Fidelina Shields MD at 09/17/2017 2:29 PM PDT Associated attestation - Fidelina Shields MD - 09/17/2017 2:29 PM PDTAttending: I saw and examined Diogenes Temple ([id number]) with the residents on morning rounds 09/17/17 [...] repeat C T abdomen/pelvis. Fidelina Shields MD Cost Control Specialist Division of Trauma, Critical Care and Acute Care Surgery Office: [phone] Pager: [phone] Venita Pruitt PA-C - 09/16/2017 6:45 AM [...] DHT in place, CARRI Neck: in [place] collar Respiratory: CTA bilaterally, lungs symmetrical, equal [...] daily - Haldol 5mg q12hr prn - LIFE TEACHER: severe cognitive deficits - continue LIFE TEACHER therapy #Bilious emesis #Ileus #Aspiration #Leukocytosis - bilious emesis overnight, trickle tube feeds stopped; will restart tube feeds slowly this afternoon and determine tolerance - hx of ileus during hospitalization, NG removed 09/14 - Strict NPO per LIFE TEACHER - Bowel meds via DHT - TPN continued #Hypervolemia I&O approaching even. Appears to have been auto-diuresing. - Continue to monitor urine output - Monitor electrolytes, replete prn #Dysphagia DHTreplaced overnight 09/07/17. TF held for bilious vomiting last night - LIFE TEACHER as able - eval from 09/13 with oropharyngeal dysphagia - strict NPO #C7 bilateral lamina fractures #C6-T2 spinous process fractures Neurosurgery consulted. Non-operative management. - C-collar at all times, use SALESPERSON MEATS when OOB - Upright films in SALESPERSON MEATS completed yesterday - follow up in 6 [...] need eventual placement. Venita Pruitt PA-[place] [phone] [facility] [place] [phone] Associated attestation - Fidelina Shields MD - 09/17/2017 3:42 PM PDTAttending: I saw and examined Diogenes Temple with Venita Pruitt PA-C on morning rounds 09/16/17 and ag ree with the assessment and plan as outlined in this note and participated in the planning o f care. Ileus precludes advancing tube feeds. Will allow po as tolerated and continue tpn. Fidelina Shields MD Cost Control Specialist Division of Trauma, Critical Care and Acute Care Surgery Office: [phone] Pager: [phone] Dallin Bourgeois MD - 09/15/2017 12:06 PM [...] Mr. Temple. Dallin Bourgeois MD Neurosurgery PGY1 [id number] signed by Dallin Bourgeois MD at 09/15/2017 [...] in place and EOMI Neck: in [place] collar Respiratory: CTA bilaterally, lungs symmetrical, equal [...] daily - Haldol 5mg q12hr prn - LIFE TEACHER: severe cognitive deficits - continue LIFE TEACHER therapy #Bilious emesis #Ileus #Aspiration #Leukocytosis On [...] with resolving ileus - trickle feeds per pharmacy technician trainee recommendations started today - TPN consult obtained [...] emesis and possible ileus, aspiration risk. - LIFE TEACHER as able - eval from 09/13 with oropharyngeal dysphagia - strict NPO #C7 bilateral lamina fractures #C6-T2 spinous process fractures Neurosurgery consulted. Non-operative management. - C-collar at all times, use SALESPERSON MEATS when OOB - Upright films in SALESPERSON MEATS completed yesterday - will notify NSG for [...] alcohol withdrawal and using olanzapine and haldol. LIFE TEACHER will reeval to day. Continue strict NPO and will start TPN. Off abx. EM CUNNINGHAM MD [facility] [address] [place] [address] Mary Medrano MD,MPH - 09/14/2017 6:39 AM [...] pseudomeningocele,Dobhoff tubein p lace Neck: in [place] collar Respiratory: sats stable room air, unlabored, [...] emesis and possible ileus, aspiration risk. - LIFE TEACHER as able #C7 bilateral lamina fractures #C6-T2 spinous process fractures Neurosurgery consulted. Non-operative management. - C-collar at all times, use SALESPERSON MEATS when OOB - Upright films in SALESPERSON MEATS when able Resolved or chronic issues/Plan: #BIG [...] M.D., M.P.H. Neurological Surgery Resident PGY-1 Pager: [phone] signed by Shlomo Bravo MD at 09/16/2017 11:14 AM PDT Associated attestation - Shlomo Bravo MD - 09/16/2017 11:14 AM PDTFormatting of this note m ight be different from the original. I saw and examined Diogenes Temple ([id number]) with the TRAUMA team on 09/14/2017. I [...] shock, initial encounter (HCC) Shlomo Bravo MD Configuration Consultant Division of Trauma and Critical Care Mary [...] tub es in place Neck: in [place] collar Respiratory: sats stable room air, unlabored, [...] emesis and possible ileus, aspiration risk. - LIFE TEACHER as able #C7 bilateral lamina fractures #C6-T2 spinous process fractures Neurosurgery consulted. Non-operative management. - C-collar at all times, use SALESPERSON MEATS when OOB - Upright films in SALESPERSON MEATS when able Resolved or chronic issues/Plan: #BIG [...] M.D., M.P.H. Neurological Surgery Resident PGY-1 Pager: [phone] signed by Greg Paige MD,PhD at 09/13/2017 1:32 PM PDT Associated attestation - Greg Paige MD,PhD - 09/13/2017 1:32 PM PDTEmergency General Santos rgery/Trauma Attending Addendum Date of Service: 09/13/2017 I saw and examined Diogenes Temple ([id number]) with the resident and agree with the assessmen t and plan as outlined in this note and participated in the planning of care. Greg Paige MD, PhD, FACS clearing house clerk Division of Trauma, Critical Care & Acute Care Surgery [facility] [place] [phone] Mary Medrano MD,MPH - 09/12/2017 6:32 AM [...] tub es in place Neck: in [place] collar Respiratory: sats stable room air, unlabored, [...] emesis and possible ileus, aspiration risk. - LIFE TEACHER as able #C7 bilateral lamina fractures #C6-T2 spinous process fractures Neurosurgery consulted. Non-operative management. - C-collar at all times, use SALESPERSON MEATS when OOB - Upright films in SALESPERSON MEATS when able Resolved or chronic issues/Plan: #BIG [...] M.D., M.P.H. Neurological Surgery Resident PGY-1 Pager: [phone] signed by Greg Paige MD,PhD at 09/12/2017 1:24 PM PDT Associated attestation - Greg Paige MD,PhD - 09/12/2017 1:24 PM PDTEmergency General Santos rgery/Trauma Attending Addendum Date of Service: 09/12/2017 I saw and examined Diogenes Temple ([id number]) with the resident and agree with the assessmen t and plan as outlined in this note and participated in the planning of care. Post-op ileus - continue with NPO/NGT decompression. Consider TPN in the coming days if there is no impro vement. Greg Paige MD, PhD, FACS clearing house clerk Division of Trauma, Critical Care & Acute Care Surgery [facility] [place] [phone] Christian Kelley PA-C - 09/11/2017 3:54 PM [...] NG tube inn place Neck: in [place] collar Respiratory: course bilaterally and diffuse rhonchi, [...] to emesis and possible aspiration event. - LIFE TEACHER deferring evaluation as patient continues with NGT to suction C7 bilateral lamina fractures C6-T2 spinous process fractures Neurosurgery consulted. Non-operative management. - C-collar at all times, use SALESPERSON MEATS when OOB - Upright films in SALESPERSON MEATS when able Resolved or chronic issues/Plan: BIG [...] MD,PhD - 09/11/2017 7:34 PM PDTEmergen General Santos rgery/Trauma Attending Addendum Date of Service: 09/11/2017 I saw and examined Diogenes Temple ([id number]) with the ASHLEY and agree with the assessment and plan as outlined in this note and participated in the planning of care. Leukocytosis persists. Etiology unclear. Will obtain CT C/A/P to search for source. Mathew-cx if febrile. Greg Paige MD, PhD, FACS clearing house clerk Division of Trauma, Critical Care & Acute Care Surgery [facility] [phone] Ginette Campos PA-C - 09/10/2017 9:32 AM [...] sensation intact in all 4 extremities Motor: Seed Laboratory Technician Bicep Tricep Delt R 4 4+ [...] C collar at all times and place SALESPERSON MEATS prior to mobilizing OOB. Anticipated duration of Collar/SALESPERSON MEATS is 12 weeks. -Obtain upright X-rays C spine AP/Lateral when able -Outpatient follow up arranged. Ginette Campos PA-C [facility] [address] [place] [address] Pg [phone] Mary Devine M D,MPH - 09/10/2017 6:27 [...] tu be in place Neck: in [place] collar Respiratory: sats stable on 2L NC, [...] to emesis and possible aspiration event. - LIFE TEACHER as able #C7 bilateral lamina fractures #C6-T2 spinous process fractures Neurosurgery consulted. Non-operative management. - C-collar at all times, use SALESPERSON MEATS when OOB - Upright films in SALESPERSON MEATS when able Resolved or chronic issues/Plan: #BIG [...] M.D., M.P.H. Neurological Surgery Resident PGY-1 Pager: [phone] signed by Greg Paige MD,PhD at 09/10/2017 8:05 PM PDT Associated attestation - Greg Paige MD,PhD - 09/10/2017 8:05 PM PDTEmergency General Santos rgery/Trauma Attending Addendum Date of Service: 09/10/2017 I saw and examined Diogenes Temple ([id number]) with the resident and agree with the assessmen t and plan as outlined in this note and participated in the planning of care. Greg Paige MD, PhD, FACS clearing house clerk Division of Trauma, Critical Care & Acute Care Surgery [facility] [place] [phone] Mary Medrano MD,MPH - 09/09/2017 6:25 AM [...] tub e in place Neck: in [place] collar Respiratory: unlabored on room air, lungs [...] DHT, which was replaced overnight 09/07/17. - LIFE TEACHER #C7 bilateral lamina fractures #C6-T2 spinous process fractures Neurosurgery consulted. Non-operative management. - C-collar at all times, use SALESPERSON MEATS when OOB - Upright films in SALESPERSON MEATS when able #Fever Febrile on 09/04/17. Mathew-cultures [...] M.D., M.P.H. Neurological Surgery Resident PGY-1 Pager: [phone] signed by Mary Medrano MD,MPH at 09/09/2017 [...] ccollar at all times, orthotics to provide SALESPERSON MEATS brace - T/L cleared - INR <1.4, check daily - Plt >100k - Check Na at least daily Please contact the neurosurgery resident on-call pager [phone] with questions. Rosa Stallworth MD Resident Physician, PGY-1 Otolaryngology - Head and Neck Surgery Pgr [phone] ary Medrano MD ,MPH - 09/08/2017 6:35 [...] tub e in place Neck: in [place] collar Respiratory: unlabored on room air, lungs [...] DHT, which was replaced overnight 09/07/17. - LIFE TEACHER #C7 bilateral lamina fractures #C6-T2 spinous process fractures Neurosurgery consulted. Non-operative management. - C-collar for now - Orthotics to fit SALESPERSON MEATS brace for OOB activity. #Fever Febrile on [...] M.D., M.P.H. Neurological Surgery Resident PGY-1 Pager: [phone] signed by Santos Weiss MD at 09/08/2017 12:04 PM PDT Associated attestation - Santos Weiss MD - 09/08/2017 12:04 PM PDTI was present with the resident during the history and exam. I discussed the case with the resident and agree with the findings and plan as documented in the resident s note. SANTOS WEISS MD [facility] [address] [place] [address] [phone] Gurpreet Foy PA-C - 09/07/2017 6:47 AM [...] protrusions and ligamentum flavum hypertroph y Procedures: 5/5: Left thoracostomy 09/01: Damage control laparotomy: takedown [...] place Musculoskeletal: Wiggles toes. No LE edema. Seed Laboratory Technician strength 5/5 on R, 3/5 on [...] primary traum a survey was done at [facility] in [facility] which identified the above listed [...] in collar currently, orthotics to treat in SALESPERSON MEATS brace when OOB. Don/Doff while in bed [...] Department of Surgery Mail Code: L611 [address] [place] [address] Jeovany Meade MD - 09/07/2017 4:05 AM PDT NEUROSURGERY PROGRESS NOTE INTERVAL UPDATE: Extubated during day yesterday Needs some NT suction Orthotic to fit SALESPERSON MEATS this AM OBJECTIVE: Last 24 hour min/max [...] ccollar at all times, orthotics to proved SALESPERSON MEATS brace - T/L cleared - INR <1.4, check daily - Plt >100k - Check Na at least daily Please contact the neurosurgery resident on-call pager [phone] with questions. Jeovany Villanueva MD Neurosurgery Resident Pager #[phone] NSGY pager #[phone] Janessa Biggs ACN P - 09/06/2017 5:42 [...] Critical Care, and Acute Care Surgery Pager #[phone] Janessa Biggs ACNP - 09/06/2017 8:00 AM [...] primary traum a survey was done at [facility] in [facility] which identified the above listed [...] Department of Surgery Mail Code: L611 [address] [place] [address] Associated attestation - Santos Weiss MD - [...] to face t janie with this patient. [id number] Sami Maldonado MD - 09/06/2017 1:48 AM [...] Please contact the neurosurgery resident on-call pager [phone] with questions. Sami Maldonado MD Neurosurgery, PGY-2 [...] primary traum a survey was done at [facility] in [facility] which identified the above listed [...] temporo-parietal encephalomalacia (BIG3): -NSG consulted, stable CTH 5/6 @ 0900 -Synthetic cranioplasty with expected transit [...] Department of Surgery Mail Code: L611 [address] [place] [address] Associated attestation - Santos Weiss MD - [...] face to face time with this patient. [id number] Sami Maldonado MD - 09/05/2017 4:32 AM [...] Please contact the neurosurgery resident on-call pager [phone] with questions. Sami Maldonado MD Neurosurgery, PGY-2 [...] Care, and Acute Care Surgery First Call: [phone] Janessa Biggs ACNP - 09/04/2017 6:20 AM [...] primary traum a survey was done at [facility] which identified the above listed injuries. [...] Department of Surgery Mail Code: L611 [address] [place] [id number] Associated attestation - Santos Weiss MD - [...] face to face time with this patient. [id number] Sami Maldonado MD - 09/04/2017 3:41 AM [...] and strong handgrip LUE intermittent weak hand crime analyst, flicker flexor to nox RLE follows with [...] Please contact the neurosurgery resident on-call pager [phone] with questions. Sami Maldonado MD Neurosurgery, PGY-2 [...] Jeffery Kulkarni MD Department of Orthopaedics p [phone] oo Rene MD - 09/03/2017 6:17 AM [...] 09/02/17 0640 Gross per 24 hour Intake 01284.73 ml Output 4075 ml Net 8770.73 ml [...] Call team 19/11 for questions: Team Pager [phone] Associated attestation - Santos Weiss MD - [...] time with this patient. SANTOS WEISS MD [address] [place] [id number] Sami Maldonado MD - 09/03/2017 2:50 AM [...] and strong handgrip LUE intermittent weak hand crime analyst, flicker flexor to nox BLE follows with [...] Please contact the neurosurgery resident on-call pager [phone] with questions. Sami Maldonado MD Neurosurgery, PGY-2 [...] wit h the collar. Magdiel Stock MD Cost Control Specialist Department of Neurological Surgery [facility]binJeffery wen MD - 09/02/2017 8:07 AM PDTOrthopaed [...] Jeffery Kulkarni MD Department of Orthopaedics p [phone] Moo Shaffer MD - 09/02/2017 7:06 AM [...] 09/02/17 0640 Gross per 24 hour Intake 43394.73 ml Output 4075 ml Net 8770.73 ml [...] Call team 19/11 for questions: Team Pager [phone] Associated attestation - Santos Weiss MD - [...] time with this patient. SANTOS WEISS MD [facility] [address] [id number] [place] [id number] George Shah MD - 09/02/2017 6:45 AM [...] Drains:240] 08/31 2300 - 09/01 230 In: 36942.5 [I.V.:02520.5] Out: 3480 [Urine:1510; Drains:1470] No Data Recorded [...] and strong handgrip LUE intermittent weak hand crime analyst, no movement to nox BLE follows with [...] Please contact the neurosurgery resident on-call pager [phone] with questions. Sami Maldonado MD Neurosurgery, PGY-2 [...] MD, PhD PGY-3, Neurosurgery 5:22 PM, 09/01/2017 [id number] signed by Sami Black at 09/01/2017 5:27 [...] KATIA RIOS MD Orthopaedic Surgery PGY-4 Pager: [phone] George Cowan MD - 09/01/2017 2:16 PM PDTGUILLERMO INTERVENTIONAL RADIOLOGY PROCEDURE NOTE DATE: 09/01/2017 2:17 [...] for this procedure can be found in [facility], under the results review tab for ([facility]) Interventional Radiology. Alternatively, they can be found in [facility] under nima rt review, imaging tab. Full report can also be found in [employer] as REPORT under the specifie d procedure. Please call IR for any questions. Sami Dover - 09/01 9:35 AM PDTBrief Progress Note I attempted to contact the patient's significant other, Magali, at [phone] as listed in the chart for consent. However, there was no answer. I did leave a message asking for call back. In the meantime, I will pursue two-attending consent for OR so there is no delay if I lizabeth nue to be unable to contact an appropriate consentor for this patient. Sami Black MD, PhD PGY-3 Resident Neurosurgery [id number] signed by Sami Black at 09/01/2017 9:37 [...] Call team 19/11 for questions: Team Pager [phone] Associated attestation - Fidelina Shields MD - 09/01/2017 6:55 PM PDTICU Attending: I saw and examined Diogenes Temple ([id number]) with the residents on 09/01/17 and agree [...] event note this morning. Fidelina Shields MD Cost Control Specialist Division of Trauma, Critical Care and Acute Care Surgery Office: [phone] Pager: [phone] This has been electronically signed by Fidelina [...] Complete Blood Count/Coags Recent Labs 08/31/17 16508/31/17173008/31/17 19008/31/17211809/01/17 0132 WBC 26.57* -- -- -- 11.65* [...] Please contact the neurosurgery resident on-call pager [phone] with questions. Nubia White MD Neurological Surgery PGY2 haz Hernandez MD - 08/31/2017 11:46 PM PDTTrauma Staff Spoke with Dr. Pina regarding c-spine MRI risks and benefits. Unable to communicate with patient, unable to locate family to answer questions or consent. "MRI cspine wo contrast, m ust include upper thoracic spine" indicated by NSG given his injury complex and inability to address strength. Agree to proceed with MRI. Chaz Hernandez MD, FACS Cost Control Specialist, Trauma, Critical Care and Acute Care [...] DOI: 02/05/17 treated at [facility] in [place], [place] s/p Right Frontotemporoparietal decompressive crainiectomy w [...] rounds. MARIANNA CAMPBELL MD Emergency Medicine, PGY-2 [place] [address] Pager: [phone] Associated attestation - Brian Painting MD - 10/14/2017 10:59 AM PDTICU Attending: I saw and examined Diogenes Temple ([id number]) with the residents on 10/10/17 and agree [...] surg gilbert notified. Brian Painting MD FACS clearing house clerk Division of Trauma, Critical Care & Acute Care Surgery Scott Peralta MD - 08/31/2017 4:54 PM PDTFormatting of this note might be different from brice david original. [facility] DEPARTMENT OF SURGERY Division of Trauma and Critical Care Attending Physician: hCaz Hernandez MD TRAUMA HISTORY AND PHYSICAL Note Date: 08/31/2017 Admission Date: 08/31/2017 DIOGEENS TEMPLE Hospital Day #0 HPI: 57 year old [...] - consults pending imaging Dixon Shields MD [facility] [place] [address] [place] [address] Trauma Chief Addendum Level/Mechanism: full / blunt [...] SDH so he was lynch sferred to [facility]. Primary survey: intubated, present bilateral breath sounds, [...] Trauma / Surgical Critical Care Fellow Pager [phone] 08/31/2017 6:12 PM Associated attestation - Chaz [...] a care plan. Chaz Hernandez MD, FACS Cost Control Specialist, Trauma, Critical Care and Acute Care Surgery documented in this encounter Procedure Notes Magdiel Stock MD - 11/06/2017 12:27 AM PDTAssociated Order(s): OPERATION RECORDDate of Ser vice: 11/05/2017 Attending Surgeon: Magdiel Stock MD Waybill Clerk(s): Rg Aiken MD Preoperative Diagnoses: 1. Right [...] by the Infectious Disease team who cleared [facility] for reimplantation of synthetic cranioplasty after [...] his head was placed in a horseshoe cathead operator with his C-collar still attached to maintain [...] the incision down to the cranium. Once [place] skull was reached c ircumferentially around the prior incision, a #1 [place] was used to subperiosteally dissec t and [...] for this encounter. MD Magdiel Nunez MD [address] [place] [address] MD HATTIE Nunez/DUC /[id number] Rg Gutierrez MD - 01/2018 7:30 PM [...] patient was positioned appropriately. The following team otr truck driver s were present during the team pause: Neurosurgery, Anesthesiology, OR nursing staff. Surgeon: Magdiel Stock MD Waybill Clerk: Rg Aiken MD Pre-op Diagnosis: Right acquired [...] Rg Aiken MD PGY-4 Neurological Surgery Pager [phone] Associated attestation - Magdiel Stock MD - 11/05/2017 8:10 PM PDTI was present for the c ritical portions of the procedure as described in the note for this encounter. MD Magdiel Nunez MD [address] [place] [address] Declan Lipscomb RN - 10/27/2017 12:27 PM PDTAssociated Order(s): PICC LINE PICC LINE Performed by: DECLAN LIPSCOMB Authorized by: CHAZ HERNANDEZ PICC/Midline Insertion Procedure Note Indications:Antibiotics and TPN Procedure location: Unit:13 Room: 4 Providers: Attending name: Attending physically present: No PICC Nurse name: Madiha Lipscomb RN Assisted by Tim Mendoza RN BSN Pre-Procedure Consent: written consent obtained Consent given by: Next of kin Patient identity confirmed per protocol: Yes Team Pause: Immediatly prior to the procedure a pause per protocol was called. A pause veri fies correct patient, procedure, equipment, client support analyst and site/side marked as required. [...] area Brachial vein. Cat heter lot number: [id number] with a length of 55 cm was [...] fies correct patient, procedure, equipment, client support analyst and site/side marked as required. [...] area Basilic vein. Cat heter lot number: [id number] with a length of 55 cm was [...] Kelly MD Surgical Critical Care, PGY7 Pager: [phone] Associated attestation - Monster Rucker MD - 10/24/2017 3:56 PM PDTPursuant to federal Medicare and Medicaid regulations I was present for the entire procedure including the criti roge portions. Monster Rucker MD FACS curriculum specialist Division of Trauma, Critical Care, and Acute Care Surgery Pilar Cotto MD - 10/12/2017 8:50 PM PDTAssociated Order(s): OPERATION RECORDDate of Service: 10/12/2017 Attending Surgeon: Chaz Hernandez MD Waybill Clerk(s): Randell Dixon M.D., fellow. George Noriega M.D., [...] made to bring the patient to the [facility] care unit for monitoring, given concern for possible inflammatory response. Dr. Hernandez w as present and scrubbed for all critical portions of the case. MD Chaz Vivas MD KMW/MODL /[id number] Associated attestation - Chaz Hernandez MD - 10/16/2017 11:14 AM PDTPursuant to [facility] and Medicaid guidelines, I was present and scrubbed for the critical portions of the procedure. Chaz Hernandez MD, FACS Cost Control Specialist, Trauma, Critical Care and Acute Care [...] MD - 10/13/2017 7:00 AM PDTPursuant to [facility] edicare and Medicaid guidelines, I was present and scrubbed for the critical portions of the procedure. Chaz Hernandez MD, FACS Cost Control Specialist, Trauma, Critical Care and Acute Care Surgery Darius Link MD - 10/10/2017 3:00 PM PDTAssociated Order(s): PROCEDURE NOTEOPERATIV E REPORT DATE OF OPERATION: 10/10/2017 ATTENDING SURGEON: 1. Dr. Hernandez SURGICAL INSTRUMENT REPAIR SPECIALIST: 1. Darius Link MD INDICATIONS: Dysphagia and need for penitentiary nutrition access PREOPERATIVE DIAGNOSIS: 1.Dysphagia and need for penitentiary nutrition access POSTOPERATIVE DIAGNOSIS: 1.Same PROCEDURE(S) PERFORMED: [...] of the procedure. Chaz Hernandez MD, FACS Cost Control Specialist, Trauma, Critical Care and Acute Care [...] MD - 10/10/2017 1:32 PM PDTPursuant to [facility] edicare and Medicaid guidelines, I was present and scrubbed for the critical portions of the procedure. Chaz Hernandez MD, FACS Cost Control Specialist, Trauma, Critical Care and Acute Care Surgery Magdiel Stock MD - 10/10/2017 12:40 PM PDTAssociated Order(s): OPERATION RECORDDate of [facility] vice: 10/10/2017 Attending Surgeon: Magdiel Stock MD Waybill Clerk(s): Cecilia Jackson MD. Preoperative Diagnoses: 1. Cranioplasty [...] a 67-year-old male. Please see [facility] for full details. He was admitt ed [...] the operative table. At this point, the [facility] surgery team came and did their planned surgical operation as well. Please see their [facility] operative dictation for details. All counts were correct at the end x2. Cecilia Jackson MD I was present for the critical portions of the procedure as described in the note for this encounter. MD Magdiel Nunez MD [address] [place] [address] Magdiel Stock MD FAH/MODL /[id number] Cecilia Patton MD - 10/10/2017 10:26 AM [...] patient was positioned appropriately. The following team otr truck driver s were present during the team pause: [...] nylons. Dict[place]. [place] [id number] Chief Resident Neurosurgery Associated attestation - Magdiel Stock MD - 10/10/2017 11:23 AM PDTI was present for the c ritical portions of the procedure as described in the note for this encounter. MD Magdiel Nunez MD [facility] [address] [id number] [place] [address] Winnie Hernandez RN - 10/02/2017 2:12 PM [...] fies correct patient, procedure, equipment, client support analyst and site/side marked as required. [...] area Basilic vein. Cath eter lot number: [id number] with a length of 55 cm was [...] the 1st attempt. Midline lo t number [id number]; there was positive blood return. The catheter [...] tomorrow morning. CB Henson Pager / ID: [phone] Fidelina Richardson MD - 09/02/2017 6:53 PM PDTAssociated Order(s): OPERATION RECORDDate of Service: 09/03/19 18 Attending Surgeon: Fidelina Shields MD Waybill Clerk(s): Ajay Butts MD, resident. Preoperative Diagnosis: Status [...] condition . MD Fidelina Jacques MD TBK/DUC /[id number] Pursuant to federal Medicare and Medicaid regulations I was present for the entire procedur madihaSelvin Shields MD Cost Control Specialist Department of Surgery Office: [phone] Pager: [phone] This has been electronically signed by Fidelina [...] Initial surgical contact: INGRID Butts, R4 Surgery [phone] Pursuant to federal Medicare and Medicaid regulations I was present for the entire procedkunal Shields MD Cost Control Specialist Department of Surgery Office: [phone] Pager: [phone] This has been electronically signed by Fidelina Shields MD, 09/02/2017 at 4:31 PM. Fidelina Richardson MD - 09/02/2017 6:51 AM PDTAssociated Order(s): OPERATION RECORDDate of Service: 8 Attending Surgeon: Fidelina Shields MD Waybill Clerk(s): Haim Peralta MD. Ajay Butts MD. Preoperative [...] Following insurance of adequate he mostasis, a [facility] wound VAC was then placed and [...] well and was to be transferred b [facility] to the ICU following the completion of the angiography. MD Fidelina Jacques MD TBK/MODL /[id number] Pursuant to federal Medicare and Medicaid regulations I was present for the entire procedur eSelvin Shields MD Cost Control Specialist Department of Surgery Office: [phone] Pager: [phone] This has been electronically signed by Fidelina Shields MD, 09/02/2017 at 10:40 AM. ook, Fidelina Whitman MD - 09/01/2017 12:31 PM PDTAssociated Order(s): EXPLORATORY LAPAROTOMYProcedure(s): EXPLORA TORY LAPAROTOMYBRIEF OPERATIVE NOTE: Date: 09/01/2017 Author: Fidelina Shields MD Attending Physician: Fidelina Shields MD Waybill Clerk(s): Haim Peralta MD, Vicente Butts MD, Glo [...] conclusion of the case. Fidelina Shields MD Cost Control Specialist Division of Trauma, Critical Care and Acute Care Surgery Office: [phone] Pager: [phone] Tom Mejia MD - 0 08/31/2017 6:07 [...] pleural spaced was performed. A 32 size Tajik chest tube was placed into the pleural [...] MD - 08/31/2017 7:15 PM PDTPursuant to [facility] edicare and Medicaid guidelines, I was present and scrubbed for the critical portions of the procedure. Chaz Hernandez MD, FACS Cost Control Specialist, Trauma, Critical Care and Acute Care [...] for the below procedure. Ade Veloz MD Cost Control Specialist Emergency Medicine documented in this encounter [...] not want to be disturbed. Spoke with Maagli regarding home care plans in [place], including follow-up through [facility] for both PCP, PT/OT, and mental health outpatient appointments. She took care of him after he was di scharged from a 6 month hospital stay in [place] and notes that he was intermittently agit [...] to TICU on 08/31/17 as [facility] after he was involved in a [facility].Found to have subdural hematoma, spine/rib fractures, hemothorax, [...] - Alcohol Use Disorder RECOMMENDATIONS: - CONTINUE Thleejqp929 mg BID liquid formulation x 14 days [...] additional questions or concerns may page construction lineman psychiatry. --Psychiatry will sign-off at this time. Seen concurrently with and staffed by Dr. Aponte, the psychiatry attending, who agrees wi th the above assessment and plan. Recommendations discussed with Sherine Sarmiento [facility], at 1120. Please call the Psychiatry Consult/Liaison Service from 8AM-4:30PM or page the Psychiatry o n-call resident after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 [...] the MDRD equation recommended by the | [facility] | | National Kidney Disease Education Program. [...] | + + + + + | [facility] | [address] | [place] [address] | | | SERVICES, CORE | VILMA [...] Note | + + | Service Account, [employer] Res In Interface - 10/31/2017 8:22 PM [...] + + + + + | ANA LILIA-HAILMA | 443 | ms | [facility] DEPT [...] ECG | Electronically signed | | [facility] | | | IMPRESSION | by: GABRIELA [...] + | [facility] DEPT OF | [address] | [place], [place] | | | CARDIOLOGY | [address] | [address] | | + + + + + [...] | | | LABORATORY | | | [place]OREAN | | | SERVICES, | | | [...] the MDRD equation recommended by the | [facility] | | National Kidney Disease Education Program. [...] | + + + + + | [facility] | [address] | [place] [address] | | | SERVICES, CORE | [address] | | | + + + + + MAGNESIUM, PLASMA (10/31/2017 5:27 AM PDT) + +-------+ + + + | Component | Value | Ref Range | Performed | Pathologist | | | | | At | Signature | + +-------+ + + + | MAGNESIUM,P | 1.9 | 1.6 - 2.6 mg/dL | [facility] | | | LASMA | | | [...] [facility] | [address] | [place] [address] | | | SERVICES, NATALEE | VILMA [...] [facility] | [address] | [place], [place] | | | [facility] | [facility] | [address] | | | TESTS | | | [...] [facility] | [address] | [place] [address] | | | SERVICES, CORE | [address] [...] | | | LABORATORY | | | ECU[place]OREAN | | | SERVICES, | | | [...] | + + + + + | [facility] | [address] | [place] [address] | | | NATALEE WORTHINGTON | VILMA [...] Note | + + | Service Account, Zi[employer] In Interface - 10/29/2017 12:13 PM PDT [...] [facility] | [address] | [place], [place] | | | GLORIA GENAO OF [employer] | [facility] | [address] | | | TESTS | | | [...] | + + + + + | [facility] | [address] | [place] [address] | | | SERVICES, CORE | VILMA [...] | | | LABORATORY | | | [place] | | | SERVICES, | | | [...] the MDRD equation recommended by the | [facility] | | National Kidney Disease Education Program. [...] | + + + + + | [facility] | [address] | [place] [address] | | | SERVICES, CORE | VILMA [...] (H) | 70 - 99 mg/dL | [facility] - | | | GLUCOSE, | | [...] [facility] | [address] | [place], [place] | | | [facility] | [address] | [address] | | | TESTS | | | [...] DEPT OF | [address] | [place], [place] | | | CARDIOLOGY | [facility] | [address] | | + + + + + CAPILLARY BLOOD GLUCOSE (NO CHG), POC (10/28/2017 12:00 PM PDT) + +---------+ + + + | Component | Value | Ref Range | Performed | Pathologist | | | | | At | Signature | + +---------+ + + + | BLOOD | 141 (H) | 70 - 99 mg/dL | [facility] - | | | GLUCOSE, | | [...] [facility] | [address] | [place], [place] | | | GLORIA GENAO OF [employer] | [facility] | [address] | | | TESTS | | | [...] [facility] | [address] | [place], [place] | | | [facility] | [address] | [address] | | | TESTS | | | [...] | + + + + + | [facility] | [address] | [place] [address] | | | SERVICES, CORE | PARK [...] + | [facility] - | [address] | [place] [address] | | | [place] | | | [...] [facility] | [address] | [place] [address] | | | SERVICES, CORE | PARK [...] | + + + + + | [facility] | [address] | [place] [address] | | | SERVICES, CORE | VILMA [...] [facility] | [address] | [place] [address] | | | SERVICES, CORE | PARK [...] | | | LABORATORY | | | [place] | | | SERVICES, | | | [...] the MDRD equation recommended by the | [facility] | | National Kidney Disease Education Program. [...] | + + + + + | [facility] | [address] | [place] [place] [address] | | | NATALEE WORTHINGTON | VILMA [...] | + + + + + | [facility] | [address] | [place] [address] | | | NATALEE WORTHINGTON | VILMA [...] MARQUAM | [address] | [place], [place] | | | [facility] OF CARE | [address] | [address] | | | TESTS | | | [...] PICKETT | [address] | [place], [place] | | | GLORIA GENAO OF [facility] | [address] | [address] | | | TESTS | | | [...] Note | + + | Service Account, [employer] Res In Interface - 10/28/2017 9:21 AM [...] At | + + + | EXAM: IN CHEST PICC LINE CHECK HISTORY: picc done [...] Interface - 10/27/2017 6:29 PM PDT EXAM: IN CHEST | | PICC LINE CHECK HISTORY: [...] and TPN Procedure | | | location: Unit:[facility] Room: 4 Providers: Attending name: [...] | | patient, procedure, equipment, client support analyst and site/side marked as | [...] vein. Catheter lot number: | | | [id number] with a length of 55 cm was [...] PICKETT | [address] | [place], [place] | | | [facility] OF [facility] | [address] | [address] | | | TESTS | | | [...] DEPT OF | [address] | [place], [place] | | | CARDIOLOGY | [address] | [address] | | + + + + + [...] PIYUSH | [address] | [place], [place] | | | GLORIA GENAO OF CARE | [address] | [address] | | | TESTS | | | [...] | + + + + + | [facility] | [address] | [place] [address] | | | NATALEE WORTHINGTON | VILMA [...] | | | LABORATORY | | | ECUADOREAN | | | SERVICES, | | | [...] | + + + + + | [facility] | [address] | [place] [address] | | | SERVICES, CORE | PARK [...] (H) | 70 - 99 mg/dL | [facility] - | | | GLUCOSE, | | [...] PICKETT | [address] | [place], [place] | | | GLORIA GENAO OF [facility] | [facility] | [address] | | | TESTS | | | [...] RAPHAELAM | [address] | [place], [place] | | | GLORIA GENAO OF CARE | [facility] | [address] | | | TESTS | | | [...] (H) | 70 - 99 mg/dL | [facility] - | | | GLUCOSE, | | [...] PIYUSH | [address] | [place], [place] | | | GLORIA GENAO OF CARE | [address] | [address] | | | TESTS | | | [...] [facility] | [address] | [place] [address] | | | SERVICES, CORE | PARK [...] | | | LABORATORY | | | ECUADOREAN | | | SERVICES, | | | [...] the MDRD equation recommended by the | [facility] | | National Kidney Disease Education Program. [...] | + + + + + | [facility] | [address] | [place] [address] | | | SERVICES, CORE | PARK [...] - MARQUAM | [address] | [place], [place] | | | [facility] CARE | [address] | [address] | | | TESTS | | | [...] | | | LABORATORY | | | ECUADOREAN | | | SERVICES, | | | [...] the MDRD equation recommended by the | [facility] | | National Kidney Disease Education Program. [...] | + + + + + | [facility] | [address] | [place] [address] | | | SERVICES, CORE | VILMA [...] 87 | 70 - 99 mg/dL | [facility] - | | | GLUCOSE, | | [...] PICKETT | [address] | [place], [place] | | | GLORIA GENAO OF GM | [facility] | [address] | | | TESTS | | | [...] + | [facility] DEPT OF | [address] | [place], [place] | | | CARDIOLOGY | [address] | [address] | | + + + + + [...] MARQUAM | [address] | [place], [place] | | | [facility] | [address] | [address] | | | TESTS | | | [...] DEPT OF | [address] | [place], [place] | | | CARDIOLOGY | [address] | [address] | | + + + + + [...] | + + + + + | [facility] | [address] | [place] [address] | | | SERVICES, CORE | VILMA [...] - | | | | | | [facility] | | + + + + + + + + | Specimen | + + | Blood - Blood | | (substance) | + + + + + + + | Performing | Address | City/State/Zipcode | Phone Number | | Organization | | | | + + + + + | [facility] | [address] | [place] [address] | | | [place] | | | | + + + [...] | + + + + + | [facility] | [address] | [place] [address] | | | SERVICES, CORE | PARK [...] [facility] | [address] | [place] [address] | | | SERVICES, CORE | VILMA [...] | + + + + + | [facility] | [address] | [place] [address] | | | NATALEE WORTHINGTON | PARK [...] | + + + + + | [facility] | [address] | [place] [address] | | | SERVICES, CORE | PARK [...] | + + + + + | [facility] | [address] | [place] [address] | | | SERVICES, CORE | VILMA [...] [facility] | [address] | [place] [address] | | | SERVICES, CORE | PARK [...] | + + + + + | [facility] | [address] | [place] [address] | | | SERVICES, CORE | VILMA [...] [facility] | [address] | [place] [address] | | | SERVICES, CORE | VILMA [...] LABORATORY | [address] | [place] [address] | | | SERVICES, NATALEE | PARK [...] [facility] | [address] | [place] [address] | | | SERVICES, CORE | PARK [...] | | | LABORATORY | | | ECUADOREAN | | | SERVICES, | | | [...] the MDRD equation recommended by the | [facility] | | National Kidney Disease Education Program. [...] | + + + + + | [facility] | [address] | [place] [address] | | | NATALEE WORTHINGTON | VILMA [...] Note Indications:TPN Procedure location: | | | Unit:[facility] Room: 4 Providers: Attending name: Attending physically [...] | correct patient, procedure, equipment, client support analyst and site/side | | | [...] | area Basilic vein. Catheter lot number: [id number] with a length of 55 | | [...] At | + + + | EXAM: IN CHEST 1 VIEW HISTORY: PICC placed-pt ready. [...] Interface - 10/24/2017 3:43 PM PDT EXAM: IN CHEST 1 | | VIEW HISTORY: PICC [...] + + | SELENA PICKETT | [address] [address] [facility] | [place], [place] | | | SUMNER HALSEY OF [facility] | [address] | [address] | | | TESTS | | | [...] | | Surgical Critical Care, PGY7 Pager: [phone] | | + + + CAPILLARY BLOOD [...] PICKETT | [address] | [place], [place] | | | GLORIA GENAO OF GM | [address] | [address] | | | TESTS | | | [...] MARQUAM | [address] | [place], [place] | | | [facility]ARE | [address] | [address] | | | TESTS | | | [...] | | | LABORATORY | | | ECUADOREAN | | | SERVICES, | | | [...] | + + + + + | [facility] | [address] | [place] [address] | | | ELIN, NATALEE | VILMA [...] | + + + + + | [facility] | [address] | [place] [address] | | | SERVICES, CORE [...] PIYUSH | [address] | [place], [place] | | | GLORIA GENAO OF [facility] | [address] | [address] | | | TESTS | | | [...] | + + + + + | [facility] | [address] | [place] [address] | | | SERVICES, NATALEE | VILMA [...] | | | LABORATORY | | | ECUADOREAN | | | SERVICES, | | | [...] | + + + + + | [facility] | [address] | [place] [address] | | | SERVICES, CORE | PARK [...] | + + + + + | [facility]PT [facility] | [address] | [place], [place] | | | CARDIOLOGY | [address] | [address] | | + + + + + IR GASTROSTOMY TUBE EXCHANGE (10/22/2017 2:42 PM PDT) + + | Specimen | + + | | + + + + + | Narrative | Performed At | + + + | Procedure: Gastrostomy tube exchange Primary attending | SELENA | | machine cell tuber: Shade Nix M.D. Preoperative diagnosis: | RADIOLOGY VOICE | | Malfunctioning Gastrostomy tube Postoperative diagnosis: Same | RECOGNITION | | Operations: Operation 1. Removal of existing Gastrostomy tube | | | over a guide wire Operation 2. Placement of 24 Tajik GABRIEL | | | gastrostomy over guide [...] a stiff glide wire the new 24 Tajik gastrostomy tube was | | | inserted. [...] Procedure: | | Gastrostomy tube exchangePrimary attending machine cell tuber: Shade Nix, | | BrynPreoperative diagnosis: Malfunctioning Gastrostomy tubePostoperative diagnosis: | | SameOperations:Operation 1. Removal of existing Gastrostomy tube over a guide | | wireOperation 2. Placement of 24 Tajik GABRIEL gastrostomy over guide wireNo sedation was [...] glide wire the | | new 24 Tajik gastrostomy tube was inserted. The position of [...] stiff g lide wire the new 24 Tajik | |gastrostomy tube was inserted. The position [...] Note | + + | Service Account, [employer] Res In Interface - 10/22/2017 10:34 AM [...] | + + + + + | [facility] | [address] | [place], [place] | | | CARDIOLOGY | [address] | [address] | | + + + + + [...] | + + + + + | [facility] | [address] | [place] [address] | | | SERVICES, CORE | VILMA [...] | | | LABORATORY | | | ECUADOREAN | | | SERVICES, | | | [...] | + + + + + | [facility] | [address] | [place] [address] | | | SERVICES, CORE | PARK [...] DEPT OF | [address] | [place], [place] | | | CARDIOLOGY | [address] | [address] | | + + + + + [...] | | | LABORATORY | | | ECUADOREAN | | | SERVICES, | | | [...] [facility] | [address] | [place] [address] | | | SERVICES, CORE | PARK [...] [facility] | [address] | [place] [address] | | | SERVICES, CORE | VILMA [...] DEPT OF | [address] | [place], [place] | | | CARDIOLOGY | [address] | [address] | | + + + + + [...] | + + + + + | [facility] | [address] | [place] [address] | | | SERVICES, CORE | VILMA [...] | | | LABORATORY | | | ECUADOREAN | | | SERVICES, | | | [...] | + + + + + | [facility] | [address] | [place] [address] | | | SERVICES, CORE | VILMA [...] DEPT OF | [address] | [place], [place] | | | CARDIOLOGY | [address] | [address] | | + + + + + [...] | | | LABORATORY | | | ECUADOREAN | | | SERVICES, | | | [...] [facility] | [address] | [place] [address] | | | SERVICES, CORE | PARK [...] | + + + + + | [facility] | [address] | [place] [address] | | | NATALEE WORTHINGTON | VILMA [...] OF | [address] | [place], [place] | | | CARDIOLOGY | [address] | [address] | | + + + + + [...] | | | LABORATORY | | | ECUADOREAN | | | SERVICES, | | | [...] the MDRD equation recommended by the | [facility] | | National Kidney Disease Education Program. [...] [facility] | [address] | [place] [address] | | | SERVICES, CORE | PARK [...] | + + + + + | [facility] | [address] | [place] [address] | | | SERVICES, CORE | VILMA [...] DEPT OF | [address] | [place], [place] | | | CARDIOLOGY | [facility] | [address] | | + + + + + CAPILLARY BLOOD GLUCOSE (NO CHG), POC (10/15/2017 6:01 AM PDT) + +---------+ + + + | Component | Value | Ref Range | Performed | Pathologist | | | | | At | Signature | + +---------+ + + + | BLOOD | 134 (H) | 70 - 99 mg/dL | [facility] - | | | GLUCOSE, | | [...] PICKETT | [address] | [place], [place] | | | [facility]ARE | [address] | [address] | | | TESTS | | | [...] | + + + + + | [facility] | [address] | [place] [address] | | | NATALEE WORTHINGTON | VILAM [...] - [facility] | [address] | [place], [place] | | | GLORIA GENAO OF [facility] | [address] | [address] | | | TESTS | | | [...] DEPT OF | [address] | [place], [place] | | | CARDIOLOGY | [address] | [address] | | + + + + + [...] [facility] | [address] | [place] [address] | | | NATALEE WORTHINGTON | VILMA [...] | | | LABORATORY | | | ECUADOREAN | | | SERVICES, | | | [...] | + + + + + | [facility] [facility] | [address] | [place] [address] | | | SERVICES, [facility] | [address] | | | + [...] | + + + + + | [facility] | [address] | [place] [address] | | | SERVICES, CORE | VILMA [...] MARQU[facility] | [address] | [place], [place] | | | GLORIA GENAO OF CARE | [address] | [address] | | | TESTS | | | [...] RAPHAELAM | [address] | [place], [place] | | | [facility] OF CARE | [address] | [address] | | | TESTS | | | [...] | + + + + + | [facility] | [address] | [place] [address] | | | SERVICES, CORE | VILMA [...] | | | LABORATORY | | | ECUADOREAN | | | SERVICES, | | | [...] | + + + + + | [facility] | [address] | [place] [address] | | | ELIN, NATALEE | [address] | | | + + + + + OPERATION RECORD (10/12/2017 8:50 PM PDT) + + | Procedure Note | + + | Pilra Cotto MD - 10/12/2017 8:50 PM PDT Date of Service: 10/12/2017 | | Attending Surgeon: Chaz Hernandez MD Waybill Clerk(s): Randell Dixon M.D., | | fellow. [...] saline. We then | | placed a 19-Tajik drain deep into the abscess cavity, tracking [...] 10/12/2017 19:50:06DT: 10/12/2017 20:50:54Job #: | | [id number] | + + X-RAY PORTABLE CHEST 1 VIEW (10/12/2017 7:50 PM PDT) + + | Specimen | + + | | + + + + + | Narrative | Performed At | + + + | EXAM: IN CHEST 1 VIEW HISTORY: Evaluate endotracheal tube [...] Note | + + | Service Account, [employer] Res In Interface - 10/13/2017 9:04 AM PDT EXAM: IN CHEST 1 | | VIEW HISTORY: Evaluate [...] PICKETT | [address] | [place], [place] | | | [facility] CARE | [address] | [address] | | | TESTS | | | [...] [facility] | [address] | [place] [address] | | | SERVICES, CORE | PARK [...] | | | LABORATORY | | | ECUADOREAN | | | SERVICES, | | | [...] the MDRD equation recommended by the | [facility] | | National Kidney Disease Education Program. [...] [facility] | [address] | [place] [address] | | | SERVICES, CORE | PARK [...] [facility] | [address] | [place] [address] | | | NATALEE WORTHINGTON | VILMA [...] GEET OF | [address] | [place], [place] | | | CARDIOLOGY | [address] | [address] | | + + + + + [...] DEPT OF | [address] | [place], [place] | | | CARDIOLOGY | [address] | [address] | | + + + + + [...] [facility] | [address] | [place] [address] | | | SERVICES, CORE | PARK [...] [facility] | [address] | [place] [address] | | | SERVICES, CORE | PARK [...] | | | LABORATORY | | | ECUADOREAN | | | SERVICES, | | | [...] the MDRD equation recommended by the | [facility] | | National Kidney Disease Education Program. [...] | + + + + + | [facility] | [address] | [place] [address] | | | NATALEE WORTHINGTON | [address] | | | + + + + + PROCEDURE NOTE (10/10/2017 10:00 PM PDT) + + + | Narrative | Performed At | + + + | Darius Link MD 10/12/2017 11:11 AM OPERATIVE REPORT | | | DATE OF OPERATION: 10/10/2017 ATTENDING SURGEON: 1. Dr. Hernandez | | | SURGICAL INSTRUMENT REPAIR SPECIALIST: 1. Darius Link MD INDICATIONS: Dysphagia | | | and need for penitentiary nutrition access PREOPERATIVE DIAGNOSIS: | | | 1.Dysphagia and need for penitentiary nutrition access | | | POSTOPERATIVE DIAGNOSIS: [...] | | | [place] [id number] Chief Resident | | | Neurosurgery | [...] | + + + + + | [facility] | [address] | [place] [address] | | | SERVICES, CORE | VILMA [...] | | | LABORATORY | | | ECUADOREAN | | | SERVICES, | | | [...] the MDRD equation recommended by the | [facility] | | National Kidney Disease Education Program. [...] | + + + + + | [facility] | [address] | [place] [address] | | | SERVICES, CORE | PARK [...] [facility] | [address] | [place] [address] | | | NATALEE WORTHINGTON | [address] | | | + + + + + OPERATION RECORD (10/10/2017 12:40 PM PDT) + + | Procedure Note | + + | Magdiel Stock MD - 10/10/2017 12:40 PM PDT Date of Service: 10/10/2017 Attending | | Surgeon: Magdiel Stock MD Waybill Clerk(s): Cecilia Jackson, | | . Preoperative Diagnoses: [...] a 67-year-old male. Please see [facility] for full details. He | | was [...] the note for this encounter.Sonal Nunez MDOHSU [id number] [facility] | | [place] [id number] Orina, MDFAH/MODLDD: | | 10/10/2017 11:52:15DT: 10/10/2017 12:40:41Job #: [id number] | | | | | |I was present for the critical portions of the procedure as described in the note for this encounter. | | | |Magdiel Stock MD | | | |Magdiel Stock MD | |[address] | |[address] [facility] | |[facility] | |[place] [address] | |[phone] | | | | | |Magdiel Stock MD | |FAH/MODL | | | | | | /[id number] | + + X-RAY ABDOMEN 1 VIEW [...] + | [facility] | [address] | [place] [address] | | | [place] | | | [...] + | [facility] | [address] | [place] [address] | | | [place] | | | | + + + [...] Gram Stain: No squamous epithelial cells | [place] | | Many polymorphonuclear cells No organisms seen | | + + + + + + + + | Performing | Address | City/State/Zipcode | Phone Number | | Organization | | | | + + + + + | [facility] - | [address] | [place] [address] | | | [place] | | | | + + + [...] detected | AIR[facility] - | | | [place] | + + + + + + + + | Performing | Address | City/State/Zipcode | Phone Number | | Organization | | | | + + + + + | [facility] | [address] | [place] [address] | | | [place] | | | [...] + | [facility] | [address] | [place] [address] | | | [place] | | | [...] Gram Stain: No squamous epithelial cells | [place] | | Many polymorphonuclear cells No organisms seen | | + + + + + + + + | Performing | Address | City/State/Zipcode | Phone Number | | Organization | | | | + + + + + | [facility] | [address] | [place] [address] | | | [place] | | | [...] + | [facility] | [address] | [place] [address] | | | [place] | | | [...] Gram Stain: No squamous epithelial cells | [place] | | Few polymorphonuclear cells No organisms seen | | + + + + + + + + | Performing | Address | City/State/Zipcode | Phone Number | | Organization | | | | + + + + + | [facility] | [address] | [place] [address] | | | [place] | | | [...] No squamous epithelial cells No polymorphonuclear | [facility] - | | cells No organisms seen | [place] | + + + + + + + + | Performing | Address | City/State/Zipcode | Phone Number | | Organization | | | | + + + + + | [facility] | [address] | [place] [address] | | | [place] | | | [...] + | [facility] | [address] | [place] [address] | | | [place] | | | | + + + [...] Gram Stain: No squamous epithelial cells | [place] | | Moderate polymorphonuclear cells No organisms seen | | + + + + + + + + | Performing | Address | City/State/Zipcode | Phone Number | | Organization | | | | + + + + + | [facility] | [address] | [place] [address] | | | [place] | | | | + + + [...] detected | [facility] - | | | [place] | + + + + + + + + | Performing | Address | City/State/Zipcode | Phone Number | | Organization | | | | + + + + + | [facility] | [address] | [place] [address] | | | [place] | | | | + + + [...] + | [facility] | [address] | [place] [address] | | | [facility] | | | | + [...] Gram Stain: No squamous epithelial cells | [facility] | | Moderate polymorphonuclear cells No organisms seen | | + + + + + + + + | Performing | Address | City/State/Zipcode | Phone Number | | Organization | | | | + + + + + | [facility] | [address] | [place] [address] | | | [place] | | | | + + + [...] + | [facility] | [address] | [place] [address] | | | [place] | | | | + + + [...] + | [facility] | [address] | [place] [address] | | | [place] | | | [...] Gram Stain: No squamous epithelial cells | [place] | | Moderate polymorphonuclear cells No organisms seen | | + + + + + + + + | Performing | Address | City/State/Zipcode | Phone Number | | Organization | | | | + + + + + | [facility] | [address] | [place] [address] | | | [place] | | | | + + + [...] + | [facility] | [address] | [place] [address] | | | [place] | | | | + + + [...] [facility] | [address] | [place] [address] | | | SERVICES, CORE | PARK [...] | + + + + + | [facility] | [address] | [place] [address] | | | SERVICES, CORE | PARK [...] + | [facility] | [address] | [place] [address] | | | ELIN, NATALEE | [address] [...] | | | LABORATORY | | | ECUADOREAN | | | SERVICES, | | | [...] | + + + + + | [facility] | [address] | [place] [address] | | | SERVICES, NATALEE | VILMA [...] DEPT OF | [address] | [place], [place] | | | CARDIOLOGY | [address] | [address] | | + + + + + [...] + + + + | PRODUCT | [id number] | | [facility] | | | UNIT [...] + + + + | EXPIRATION | [id number] | | [facility] | | | DATE [...] + + + + | BLOOD | [id number] | | [facility] | | | PRODUCT [...] [facility] | [address] | [place] [address] | | | SERVICES, | [address] [...] + + + + | PRODUCT | [id number] | | [facility] | | | UNIT [...] + + + + | EXPIRATION | [id number] | | [facility] | | | DATE [...] + + + + | BLOOD | [id number] | | [facility] | | | PRODUCT [...] | + + + + + | [facility] | [address] | [place] [address] | | | SERVICES, | [address] [...] [facility] | [address] | [place] [address] | | | SERVICES, | [address] [...] [facility] | [address] | [place] [address] | | | SERVICES, | [address] [...] | + + + + + | [facility] | [address] | [place] [address] | | | ELIN, | VILMA DAVE [...] | + + + + + | [facility] | [address] | [place] [address] | | | SERVICES, CORE | [address] [...] DEPT OF | [address] | [place], [place] | | | CARDIOLOGY | [address] | [address] | | + + + + + [...] Note | + + | Service Account, Ziptr In Interface - 10/08/2017 10:47 AM PDT [...] [facility] | [address] | [place], [place] | | | [facility] | [address] | [address] | | | TESTS | | | [...] | + + + + + | [facility] | [address] | [place] [address] | | | SERVICES, CORE | [address] | | | + + + + + MAGNESIUM, PLASMA (10/08/2017 6:00 AM PDT) + +-------+ + + + | Component | Value | Ref Range | Performed | Pathologist | | | | | At | Signature | + +-------+ + + + | MAGNESIUM,P | 2.2 | 1.6 - 2.6 mg/dL | [facility] | | | LASMA | | | [...] [facility] | [address] | [place] [address] | | | SERVICES, CORE | VILMA [...] | | | LABORATORY | | | [place] | | | SERVICES, | | | [...] | + + + + + | [facility] | [address] | [place] [address] | | | SERVICES, CORE | VILMA [...] [facility] | [address] | [place], [place] | | | [facility] | [address] | [address] | | | TESTS | | | [...] - [facility] | [address] | [place], [place] | | | [facility] | [address] | [address] | | | TESTS | | | [...] [facility] | [address] | [place], [place] | | | GLORIA GE[facility]O [facility] | [address] | [address] | | | TESTS | | | [...] [facility] | [address] | [place], [place] | | | [facility] | [address] | [address] | | | TESTS | | | [...] - [facility] | [address] [address] | [place], [place] | | | [facility] | [address] | [address] | | | TESTS | | | [...] | + + + + + | [facility] | [address] | [place] [address] | | | SERVICES, NATALEE | VILMA [...] | + + + + + | [facility] | [address] | [place] [address] | | | SERVICES, CORE | VILMA [...] | | | LABORATORY | | | ECUADOREAN | | | SERVICES, | | | [...] | + + + + + | [facility] | [address] | [place] [address] | | | SERVICES, CORE | VILMA [...] 99 | 70 - 99 mg/dL | [facility] - | | | GLUCOSE, | | [...] PICKETT | [address] | [place], [place] | | | [facility] | [address] | [address] | | | TESTS | | | [...] MARQUAM | [address] | [place], [place] | | | [facility] | [address] | [address] | | | TESTS | | | [...] DEPT OF | [address] | [place], [place] | | | CARDIOLOGY | [facility] | [address] | | + + + + + [...] [facility]USH | [address] | [place], [place] | | | [facility] | [address] | [address] | | | TESTS | | | [...] [facility] | [address] | [place] [address] | | | NATALEE WORTHINGTON | VILMA [...] | + + + + + | [facility] | [address] | [place] [address] | | | SERVICES, CORE [...] | | | LABORATORY | | | ECUADOREAN | | | SERVICES, | | | [...] | + + + + + | [facility] | [address] | [place] [address] | | | SERVICES, CORE | VILMA [...] (H) | 70 - 99 mg/dL | [facility] - | | | GLUCOSE, | | [...] PICKETT | [address] | [place], [place] | | | [facility] | [address] | [address] | | | TESTS | | | [...] MARQUAM | [address] | [place], [place] | | | [facility] | [address] | [address] | | | TESTS | | | [...] - MARQUAM | [address] | [place], [place] | | | [facility] | [address] | [address] | | | TESTS | | | [...] + + + | [facility] | [address] | [place], [place] | | | [facility] | [address] | [address] | | | TESTS | | | [...] OF | [address] | [place], [place] | | | CARDIOLOGY | [facility] | [address] | | + + + + + [...] | + + + + + | [facility] | [address] | [place] [address] | | | SERVICES, CORE | PARK [...] [facility] | [address] | [place] [address] | | | SERVICES, CORE [...] | | | LABORATORY | | | ECUADOREAN | | | SERVICES, | | | [...] the MDRD equation recommended by the | [facility] | | National Kidney Disease Education Program. [...] | + + + + + | [facility] | [address] | [place] [address] | | | NATALEE WORTHINGTON | V[place]MA [...] (H) | 70 - 99 mg/dL | [facility] - | | | GLUCOSE, | | [...] MARQUAM | [address] | [place], [place] | | | [facility] | [address] | [address] | | | TESTS | | | [...] PICKETT | [address] | [place], [place] | | | [facility] | [facility] | [address] | | | TESTS | | | | + + + + + CAPILLARY BLOOD GLUCOSE (NO CHG) POC (10/04/2017 5:47 PM PDT) + +---------+ [...] MARQUAM | [address] | [place], [place] | | | [facility] | [facility] | [address] | | | TESTS | | | [...] (H) | 70 - 99 mg/dL | [facility] - | | | GLUCOSE, | | [...] MARQUAM | [address] | [place], [place] | | | [facility] | [address] | [address] | | | TESTS | | | [...] PICKETT | [address] | [place], [place] | | | [facility] | [facility] | [address] | | | TESTS | | | [...] | + + + + + | [facility] | [address] | [place] [address] | | | SERVICES, CORE | PARK [...] [facility] | [address] | [place] [address] | | | ELIN, NATALEE | VILMA [...] | | | LABORATORY | | | ECUADOREAN | | | SERVICES, | | | [...] | + + + + + | [facility] | [address] | [place] [address] | | | SERVICES, CORE | VILMA [...] MARQUAM | [address] | [place], [place] | | | [facility] | [address] | [address] | | | TESTS | | | [...] - RAPHAELAM | [address] | [place] | | | [facility] | [address] | [address] | | | TESTS | | | [...] | + + + + + | [facility] | [address] | [place] [address] | | | SERVICES, CORE | VILMA [...] by | | | | | | [employer],[address] | | | | | | Rogelio Pickard, [facility] | | | | | | [id number] | | | | | | [phone][employer]. | | | | | | Gui [...] [facility] | [address] | [place], [place] | | | [facility] | | [id number] | | + + + + + [...] [facility] | [address] | [place] [address] | | | SERVICES, CORE | PARK [...] [facility] | [address] | [place] [address] | | | SERVICES, CORE | PARK [...] modified from | [facility] | | original glass maker's approved specifications. The performance | LABORATORY | | of the HAND PAINT MIXER HIV Combo test, with or without confirmation, [...] | + + + + + | [facility] | [address] | [place] [address] | | | SERVICES, SPECIAL | VILMA [...] (H) | 70 - 99 mg/dL | [facility] - | | | GLUCOSE, | | [...] + + + | [facility] | [address] | [place], [place] | | | [facility] | [address] | [address] | | | TESTS | | | [...] MARQUAM | [address] | [place], [place] | | | [facility] | [address] | [address] | | | TESTS | | | [...] + + | [facility] | [address] | [place] [address] | | | SERVICES, CORE | PARK [...] | + + + + + | [facility] | [address] | [place] [address] | | | SERVICES, CORE | PARK [...] | | | LABORATORY | | | ECUADOREAN | | | SERVICES, | | | [...] the MDRD equation recommended by the | [facility] | | National Kidney Disease Education Program. [...] | + + + + + | [facility] | [address] | [place] [address] | | | ELIN, NATALEE | VILMA [...] + + + + | [facility] | [address] | [place], [place] | | | [facility] | [address] | [address] | | | TESTS | | | [...] MARQU[facility] | [address] | [place], [place] | | | [facility] | [address] | [address] | | | TESTS | | | [...] DEPT OF | [address] | [place], [place] | | | CARDIOLOGY | [address] | [address] | | + + + + + [...] At | + + + | EXAM: IN CHEST 1 VIEW HISTORY: Evaluate PICC placement [...] Note | + + | Service Account, [employer] - 10/02/2017 2:07 PM PDT EXAM: IN CHEST 1 | | VIEW HISTORY: Evaluate [...] MAR[facility] | [address] | [place], [place] | | | [facility] | [address] | [address] | | | TESTS | | | | + + + + + X-RAY PORTABLE CHEST 1 VIEW (10/02/2017 8:56 AM PDT) + + | Specimen | + + | | + + + + + | Narrative | Performed At | + + + | EXAM: IN CHEST 1 VIEW HISTORY: new leukocytosis, eval [...] Morley MD Dictation initiated: Marcelo Radford | | MD Milli 10/02/2017 10:20 AM | | + + + + + | Procedure Note | + + | Service Account, [employer] - 10/02/2017 10:27 AM PDT EXAM: IN CHEST 1 | | VIEW HISTORY: new [...] RAPHAELAM | [address] | [place], [place] | | | [facility] | [address] | [address] | | | TESTS | | | [...] | + + + + + | [facility] | [address] | [place] [address] | | | NATALEE WORTHINGTON | VILMA [...] | + + + + + | [facility] [employer] | [address] | [place] [address] | | | SERVICES, CORE | VILMA [...] | | | LABORATORY | | | ECUADOREAN | | | SERVICES, | | | [...] | + + + + + | [facility] | [address] | [place] [address] | | | SERVICES, CORE | VILMA [...] P[facility]ETT | [address] | [place], [place] | | | [facility] | [address] | [address] | | | TESTS | | | [...] MARQUAM | [address] | [place], [place] | | | [facility]ARE | [facility] | [address] | | | TESTS | | | [...] P[facility]ETT | [address] | [place], [place] | | | [facility] | [address] | [address] | | | TESTS | | | [...] Note | + + | Service Account, [employer] - 10/01/2017 11:34 AM PDT [...] P[facility]T | [address] | [place], [place] | | | [facility] | [facility] | [address] | | | TESTS | | | [...] [facility] | [address] | [place] [address] | | | NATALEE WORTHINGTON | VILMA [...] | + + + + + | [facility] | [address] | [place] [address] | | | SERVICES, CORE | PARK [...] | | | LABORATORY | | | ECUADOREAN | | | SERVICES, | | | [...] | + + + + + | [facility] | [address] | [place] [address] | | | SERVICES, CORE | PARK [...] P[facility] | [address] | [place], [place] | | | [facility] | [facility] | [address] | | | TESTS | | | [...] RAPHAELAM | [address] | [place] | | | [facility] | [address] | [address] | | | TESTS | | | [...] + + + + + | ANA LILIA-BAZ[facility]T | 481 | ms | [facility] [...] DEPT OF | [address] | [place], [place] | | | CARDIOLOGY | [address] | [address] | | + + + + + [...] PICKETT | [address] | [place], [place] | | | [facility] | [address] | [address] | | | TESTS | | | [...] MARQUAM | [address] | [place], [place] | | | [facility] | [address] | [address] | | | TESTS | | | [...] [facility] | [address] | [place] [address] | | | SERVICES, CORE | PARK [...] [facility] | [address] | [place] [address] | | | SERVICES, CORE | PARK [...] | | | LABORATORY | | | ECUADOREAN | | | SERVICES, | | | [...] the MDRD equation recommended by the | [facility] | | National Kidney Disease Education Program. [...] | + + + + + | [facility] | [address] | [place] [address] | | | NATALEE WORTHINGTON | VILMA [...] MARQUAM | [address] | [place], [place] | | | [facility] | [address] | [address] | | | TESTS | | | [...] PICKETT | [address] | [place], [place] | | | [facility] | [address] | [address] | | | TESTS | | | [...] MARKHRISAM | [address] | [place] | | | [facility] | [address] | [address] | | | TESTS | | | [...] + + + + + + | [facility]HAL[facility] | 442 | ms | [facility] [...] DEPT OF | [address] | [place], [place] | | | CARDIOLOGY | [address] | [address] | | + + + + + [...] P[facility]ETT | [address] | [place], [place] | | | [facility] | [address] | [address] | | | TESTS | | | [...] | + + + + + | [facility] | [address] | [place] [address] | | | SERVICES, CORE | VILMA [...] | | | LABORATORY | | | ECUADOREAN | | | SERVICES, | | | [...] [facility] | [address] | [place] [address] | | | SERVICES, CORE | PARK [...] | + + + + + | [facility] | [address] | [place] [address] | | | SERVICES, NATALEE | PARK [...] MARQU[facility] | [address] | [place], [place] | | | [facility] | [address] | [address] | | | TESTS | | | [...] - MARQUAM | [address] | [place], [place] | | | [facility] | [address] | [address] | | | TESTS | | | [...] PICKETT | [address] | [place] | | | [facility] | [address] | [address] | | | TESTS | | | [...] DEPT OF | [address] | [place] | | | CARDIOLOGY | [facility] | [address] | | + + + + + CAPILLARY BLOOD GLUCOSE (NO CHG), POC (09/28/2017 6:47 AM PDT) + +---------+ + + + | Component | Value | Ref Range | Performed | Pathologist | | | | | At | Signature | + +---------+ + + + | BLOOD | 147 (H) | 70 - 99 mg/dL | [facility] - | | | GLUCOSE, | | [...] PICKETT | [address] | [place], [place] | | | [facility] | [address] | [address] | | | TESTS | | | [...] | + + + + + | [facility] | [address] | [place] [address] | | | NATALEE WORTHINGTON | VILMA [...] | + + + + + | [facility] | [address] | [place] [address] | | | SERVICES, NATALEE | PARK [...] | | | LABORATORY | | | ECUADOREAN | | | SERVICES, | | | [...] | + + + + + | [facility] | [address] | [place] [address] | | | SERVICES, CORE | VILMA [...] (H) | 70 - 99 mg/dL | [facility] - | | | GLUCOSE, | | [...] P[facility]ETT | [address] | [place], [place] | | | [facility] | [facility] | [address] | | | TESTS | | | [...] MARQUAM | [address] | [place], [place] | | | [facility] | [address] | [address] | | | TESTS | | | [...] MD 09/27/2017 2:17 PM | |Preliminary: Julian iTnoco MD | + + + +---------+ + [...] [facility] | [address] | [place], [place] | | | [facility] | [address] | [address] | | | TESTS | | | [...] PIYUSH | [address] | [place], [place] | | | [facility] | [address] | [address] | | | TESTS | | | [...] | + + + + + | [facility] | [address] | [place] [address] | | | SERVICES, CORE | PARK [...] [facility] | [address] | [place] [address] | | | SERVICES, CORE | VILMA [...] | | | LABORATORY | | | ECUADOREAN | | | SERVICES, | | | [...] | + + + + + | [facility] | [address] | [place] [address] | | | SERVICES, [facility] | [address] | | | + + + + + CAPILLARY BLOOD GLUCOSE (NO CHG), POC (09/27/2017 12:41 AM PDT) + +---------+ + + + | Component | Value | Ref Range | Performed | Pathologist | | | | | At | Signature | + +---------+ + + + | BLOOD | 169 (H) | 70 - 99 mg/dL | [facility] - | | | GLUCOSE, | | [...] P[facility]ETT | [address] | [place], [place] | | | [facility] | [address] | [address] | | | TESTS | | | [...] [facility]YUSH | [address] | [place], [place] | | | [facility] | [address] | [address] | | | TESTS | | | [...] OF | [address] | [place], [place] | | | CARDIOLOGY | [address] | [address] | | + + + + + [...] P[facility]ETT | [address] | [place], [place] | | | [facility] | [address] | [address] | | | TESTS | | | [...] MARQUAM | [address] | [place], [place] | | | [facility] | [address] | [address] | | | TESTS | | | [...] [facility]USH | [address] | [place] | | | [facility] | [address] | [address] | | | TESTS | | | [...] | + + + + + | [facility] | [address] | [place] [address] | | | SERVICES, NATALEE | VILMA [...] | + + + + + | [facility] | [address] | [place] [address] | | | SERVICES, CORE | VILMA [...] | | | LABORATORY | | | ECUADOREAN | | | SERVICES, | | | [...] | + + + + + | [facility] | [address] | [place] [address] | | | SERVICES, CORE | VILMA [...] (H) | 70 - 99 mg/dL | [facility] - | | | GLUCOSE, | | [...] P[facility]ETT | [address] | [place], [place] | | | [facility] | [address] | [address] | | | TESTS | | | [...] | + + + + + | [facility] | [address] | [place] [address] | | | SERVICES, CORE | PARK [...] [facility] | [address] | [place] [address] | | | SERVICES, CORE | PARK [...] | | | LABORATORY | | | ECUADOREAN | | | SERVICES, | | | [...] the MDRD equation recommended by the | [facility] | | National Kidney Disease Education Program. [...] [facility] | [address] | [place] [address] | | | SERVICES, CORE | VILMA [...] DEPT OF | [address] | [place], [place] | | | CARDIOLOGY | [address] | [address] | | + + + + + [...] Note | + + | Service Account, [employer] Interface - 09/24/2017 4:09 PM [...] | + + + + + | [facility] | [address] | [place] [address] | | | SERVICES, CORE | VILMA [...] | | | LABORATORY | | | ECUADOREAN | | | SERVICES, | | | [...] [facility] | [address] | [place] [address] | | | SERVICES, CORE | PARK [...] | + + + + + | [facility] | [address] | [place] [address] | | | NATALEE WORTHINGTON | VILMA [...] | + + + + + | [facility] | [address] | [place] [address] | | | SERVICES, CORE | [address] | | | + + + + + MAGNESIUM, PLASMA (09/23/2017 4:04 AM PDT) + +-------+ + + + | Component | Value | Ref Range | Performed | Pathologist | | | | | At | Signature | + +-------+ + + + | MAGNESIUM,P | 2.1 | 1.6 - 2.6 mg/dL | [facility] | | | [facility] | | | [...] [facility] | [address] | [place] [address] | | | ELIN, NATALEE | VILMA [...] | | | LABORATORY | | | ECUADOREAN | | | SERVICES, | | | [...] | + + + + + | [facility] [employer] [facility] | [address] | [place] [address] | | | SERVICES, CORE | VILMA [...] MARQUAM | [address] | [place] | | | [facility] | [address] | [address] | | | TESTS | | | [...] PICKETT | [address] | [place], [place] | | | [facility] | [address] | [address] | | | TESTS | | | [...] [facility] | [address] | [place] [address] | | | ELIN, NATALEE | PARK [...] DEPT OF | [address] | [place], [place] | | | CARDIOLOGY | [address] | [address] | | + + + + + [...] [facility] | [address] | [place] [address] | | | SERVICES, CORE | VILMA [...] [facility] | [address] | [place] [address] | | | SERVICES, CORE | VILMA [...] | | | LABORATORY | | | ECUADOREAN | | | SERVICES, | | | [...] the MDRD equation recommended by the | [facility] | | National Kidney Disease Education Program. [...] | + + + + + | [facility] | [address] | [place] [address] | | | NATALEE WORTHINGTON | VILMA [...] [facility] | [address] | [place] | | | [facility] | [address] | [address] | | | TESTS | | | [...] [facility] | [address] | [place] [address] | | | NATALEE WORTHINGTON | VILMA [...] | + + + + + | [facility] | [address] | [place] [address] | | | SERVICES, NATALEE | VILMA [...] | | | LABORATORY | | | ECUADOREAN | | | SERVICES, | | | [...] | + + + + + | [facility] | [address] | [place] [address] | | | SERVICES, CORE | PARK [...] | + + | Service Account, [employer] Interface - 09/20/2017 7:50 PM PDT [...] Note | + + | Service Account, [employer] - 09/20/2017 6:26 PM [...] Note | + + | Service Account, [employer] - 09/20/2017 5:17 PM [...] the report as now presented. Final signature: Esipnoza Sanchez | | 09/20/2017 5:16 PM Preliminary: [...] OF | [address] | [place], [place] | | | CARDIOLOGY | [facility] | [address] | | + + + + + [...] | + + + + + | [facility] | [address] | [place] [address] | | | SERVICES, CORE | VILMA [...] [facility] | [address] | [place] [address] | | | SERVICES, CORE | PARK [...] | | | LABORATORY | | | ECUADOREAN | | | SERVICES, | | | [...] the MDRD equation recommended by the | [facility] | | National Kidney Disease Education Program. [...] | + + + + + | [facility] | [address] | [place] [address] | | | SERVICES, CORE | PARK [...] [facility] | [address] | [place] [address] | | | SERVICES, CORE | PARK [...] [facility] | [address] | [place] [address] | | | SERVICES, CORE | PARK [...] | | | LABORATORY | | | [place] | | | SERVICES, | | | [...] the MDRD equation recommended by the | [facility] | | National Kidney Disease Education Program. [...] | + + + + + | [facility] | [address] | [place] [address] | | | SERVICES, CORE | PARK [...] [facility] | [address] | [place] [address] | | | SERVICES, CORE | PARK [...] [facility] | [address] | [place] [address] | | | SERVICES, CORE | PARK [...] | | | LABORATORY | | | [place] | | | SERVICES, | | | [...] the MDRD equation recommended by the | [facility] | | National Kidney Disease Education Program. [...] | + + + + + | [facility] | [address] | [place] [address] | | | NATALEE WORTHINGTON | [address] [...] Note | + + | Service Account, [employer] Res In Interface - 09/17/2017 11:53 AM [...] | + + + + + | [facility] | [address] | [place] [address] | | | NATALEE WORTHINGTON [...] | + + + + + | [facility] | [address] | [place] [address] | | | SERVICES, CORE | V[place] [...] | | | LABORATORY | | | [place] | | | SERVICES, | | | [...] [facility] | [address] | [place] [address] | | | SERVICES, CORE | [address] | | | + + + + + X-RAY PORTABLE CHEST PICC LINE CHECK (09/16/2017 1:11 PM PDT) + + | Specimen | + + | | + + + + + | Narrative | Performed At | + + + | EXAM: IN CHEST PICC LINE CHECK HISTORY: PICC placement [...] Interface - 09/16/2017 1:34 PM PDT EXAM: IN CHEST | | PICC LINE CHECK HISTORY: [...] At | + + + | EXAM: IN CHEST PICC LINE CHECK HISTORY: Evaluate PICC [...] Interface - 09/16/2017 11:41 AM PDT EXAM: IN CHEST | | PICC LINE CHECK HISTORY: [...] | + + + + + | [facility] | [address] | [place] [address] | | | NATALEE WORTHINGTON | [address] [...] | + + + + + | [facility] | [address] | [place] [address] | | | SERVICES, CORE | V[place] [...] | | | LABORATORY | | | [place] | | | SERVICES, | | | [...] | + + + + + | [facility] | [address] | [place] [address] | | | SERVICES, CORE | [address] | | | + + + + + X-RAY PORTABLE CHEST 1 VIEW (09/15/2017 3:28 PM PDT) + + | Specimen | + + | | + + + + + | Narrative | Performed At | + + + | EXAM: IN CHEST 1 VIEW HISTORY: COMPARISON: None. | [...] Interface - 09/15/2017 6:45 PM PDT EXAM: IN CHEST 1 | | VIEW HISTORY: COMPARISON: [...] At | + + + | EXAM: IN CHEST PICC LINE CHECK HISTORY: PICC COMPARISON: [...] Interface - 09/15/2017 6:43 PM PDT EXAM: IN CHEST | | PICC LINE CHECK HISTORY: [...] Indications:TPN Procedure | | | location: Unit:[facility] Room: #12 Providers: Attending name: [...] verifies correct patient, procedure, equipment, client support analyst | | | and site/side [...] | area Basilic vein. Catheter lot number: [id number] with a length of 55 | | [...] | + + + + + | [facility] | [address] | [place] [address] | | | SERVICES, CORE | [place] [...] | + + + + + | [facility] | [address] | [place] [address] | | | SERVICES, [facility] | [address] | | | + [...] | | | LABORATORY | | | [place]OREAN | | | SERVICES, | | | [...] the MDRD equation recommended by the | [facility] | | National Kidney Disease Education Program. [...] | + + + + + | [facility] | [address] | [place] [address] | | | SERVICES, CORE | VILMA [...] [facility] | [address] | [place] [address] | | | NATALEE WORTHINGTON | VILMA [...] | + + + + + | [facility] | [address] | [place] [address] | | | SERVICES, NATALEE | VILMA [...] | | | LABORATORY | | | [place]OREAN | | | SERVICES, | | | [...] | + + + + + | [facility] | [address] | [place] [address] | | | SERVICES, CORE | PARK [...] [facility] | [address] | [place] [address] | | | NATALEE WORTHINGTON | PARK [...] | + + + + + | [facility] | [address] | [place] [address] | | | SERVICES, NATALEE | VILMA [...] | | | LABORATORY | | | [place]AN | | | SERVICES, | | | [...] | + + + + + | [facility] | [address] | [place] [address] | | | SERVICES, CORE | PARK [...] | + + + + + | [facility] | [address] | [place] [address] | | | SERVICES, CORE | [address] | | | + + + + + MAGNESIUM, PLASMA (09/12/2017 6:33 AM PDT) + +-------+ + + + | Component | Value | Ref Range | Performed | Pathologist | | | | | At | Signature | + +-------+ + + + | MAGNESIUM,P | 2.3 | 1.6 - 2.6 mg/dL | [facility] | | | LASMA | | | [...] [facility] | [address] | [place] [address] | | | SERVICES, CORE | PARK [...] | | | LABORATORY | | | [place] | | | SERVICES, | | | [...] the MDRD equation recommended by the | [facility] | | National Kidney Disease Education Program. [...] | + + + + + | [facility] | [address] | [place] [address] | | | ELIN, NATALEE | VILMA [...] [facility] | [address] | [place] [address] | | | NATALEE WORTHINGTON | VILMA [...] | + + + + + | [facility] | [address] | [place] [address] | | | NATALEE WORTHINGTON | PARK [...] | | | LABORATORY | | | [place]AN | | | SERVICES, | | | [...] | + + + + + | [facility] | [address] | [place] [address] | | | SERVICES, CORE | VILMA [...] + + + + + | [facility] | [address] | [place] [address] | | | SERVICES, CORE | VILMA [...] Note | + + | Service Account, Ziptr In Interface - 09/10/2017 2:08 PM PDT [...] Note | + + | Service Account, Ziptr In Interface - 09/10/2017 2:31 PM PDT [...] At | + + + | STUDY: IN CHEST 1 VIEW 09/10/17 07:02:01 HISTORY: Possible [...] Note | + + | Service Account, [employer] Res In Interface - 09/10/2017 9:25 AM PDT STUDY: IN CHEST 1 | | VIEW 09/10/17 07:02:01 [...] + + | [facility] | [address] | [place] [address] | | | SERVICES, CORE | PARK [...] [facility] | [address] | [place] [address] | | | SERVICES, CORE | PARK [...] | + + + + + | [facility] | [address] | [place] [address] | | | SERVICES, CORE | VILMA [...] LABORATORY | [address] | [place] [address] | | | SERVICES, CORE | PARK [...] | | | LABORATORY | | | [place]AN | | | SERVICES, | | | [...] | + + + + + | [facility] | [address] | [place] [address] | | | NATALEE WORTHINGTON | VILMA [...] + + + | ANA LILIA-HALIMA | 489 | ms | [facility] [...] DEPT OF | [address] | [place], [place] | | | CARDIOLOGY | [address] | [address] | | + + + + + [...] Note | + + | Service Account, [employer] Res In Interface - 09/10/2017 11:11 AM [...] + CAPILLARY BLOOD GLUCOSE (NO CHG) POC (09/09/2017 11:50 AM PDT) + +---------+ [...] [facility] | [address] | [place], [place] | | | [facility] | [address] | [address] | | | TESTS | | | [...] | + + + + + | [facility] | [address] | [place] [address] | | | NATALEE WORTHINGTON | PARK [...] [facility] | [address] | [place] [address] | | | SERVICES, CORE | PARK [...] | | | LABORATORY | | | [place]AN | | | SERVICES, | | | [...] | + + + + + | [facility] | [address] | [place] [address] | | | ELIN, NATALEE | VILMA [...] [facility] | [address] | [place] [address] | | | SERVICES, CORE | PARK [...] | | | LABORATORY | | | [place]AN | | | SERVICES, | | | [...] [facility] | [address] | [place] [address] | | | SERVICES, CORE | PARK [...] | + + + + + | [facility] | [address] | [place] [address] | | | SERVICES, CORE | PARK [...] [facility] | [address] | [place] [address] | | | SERVICES, CORE | PARK [...] [facility] | [address] | [place], [place] | | | CARDIOLOGY | [address] | [address] | | + + + + + X-RAY PORTABLE CHEST 1 VIEW (09/07/2017 6:12 AM PDT) + + | Specimen | + + | | + + + + + | Narrative | Performed At | + + + | EXAM: IN CHEST 1 VIEW HISTORY: Post extubation COMPARISON: [...] Interface - 09/07/2017 10:46 AM PDT EXAM: IN CHEST 1 | | VIEWHISTORY: Post extubationCOMPARISON: [...] | + + + + + | [facility] | [address] | [place] [address] | | | NATALEE WORTHINGTON | [address]ARK [...] | | | LABORATORY | | | [place] | | | SERVICES, | | | [...] the MDRD equation recommended by the | [facility] | | National Kidney Disease Education Program. [...] | + + + + + | [facility] | [address] | [place] [address] | | | SERVICES, CORE | VILMA [...] | + + + + + | [facility] | [address] | [place] [address] | | | SERVICES, CORE | [address] | | | + + + + + X-RAY ABD LTD FEEDING TUBE EVAL (09/06/2017 8:04 PM PDT) + + | Specimen | + + | | + + + + + | Narrative | Performed At | + + + | EXAM: ABD LTD FEEDING TUBE EVAL 09/06/17 19:27:59 COMPARISON: | [facility] | | 09/06/17 earlier on the same [...] | + + | Service Account, [employer] In Interface - 09/07/2017 10:46 AM PDT [...] DEPT OF | [address] | [place], [place] | | | CARDIOLOGY | [address] | [address] | | + + + + + [...] | | | attempt. Midline lot number [id number]; there was positive blood | | | [...] | | | LABORATORY | | | [place]AN | | | SERVICES, | | | [...] [facility] | [address] | [place] [address] | | | SERVICES, CORE | PARK [...] | + + + + + | [facility] | [address] | [place] [address] | | | SERVICES, [facility] | [address] | | | + + + + + X-RAY PORTABLE CHEST 1 VIEW (09/05/2017 5:33 AM PDT) + + | Specimen | + + | | + + + + + | Narrative | Performed At | + + + | EXAM: IN CHEST 1 VIEW HISTORY: Evaluation after chest tube | [facility] | | removal. COMPARISON: Yesterday FINDINGS: Endotracheal [...] Interface - 09/05/2017 10:16 AM PDT EXAM: IN CHEST 1 | | VIEW HISTORY: Evaluation [...] | + + + + + | [facility] | [address] | [place] [address] | | | SERVICES, CORE | VILMA [...] | + + + + + | [facility] | [address] | [place] [address] | | | SERVICES, CORE | VILMA [...] | | | LABORATORY | | | [place]OREAN | | | SERVICES, | | | [...] [facility] | [address] | [place] [address] | | | SERVICES, CORE | PARK [...] | | | LABORATORY | | | [place]AN | | | SERVICES, | | | [...] | + + + + + | [facility] | [address] | [place] [address] | | | SERVICES, [facility] | [address] | | | + [...] tomorrow morning. CB Henson Pager / ID: [phone] | | + + + CULTURE, SPUTUM [...] seen | AIRPORT - | | | [place] | + + + + + + + + | Performing | Address | City/State/Zipcode | Phone Number | | Organization | | | | + + + + + | [facility] | [address] | [place] [address] | | | [place] | | | [...] | + + + + + | [facility] | [address] | [place] [address] | | | ELIN, NATALEE | VILMA [...] | [facility] | | | GRAVITY | Pratt performed by | | LABORATORY | | [...] [facility] | [address] | [place] [address] | | | SERVICES, CORE | VILMA [...] | + + + + + | [facility] | [address] | [place] [address] | | | SERVICES, CORE | PARK [...] [facility] | [address] | [place] [address] | | | SERVICES, CORE | VILMA [...] + | [facility] | [address] | [place], [place] | | | CARDIOLOGY | [address] | [address] | | + + + + + X-RAY PORTABLE CHEST 1 VIEW (09/04/2017 7:04 AM PDT) + + | Specimen | + + | | + + + + + | Narrative | Performed At | + + + | EXAM: IN CHEST 1 VIEW HISTORY: Hypoxia. Intubated. | [...] Interface - 09/04/2017 9:49 AM PDT EXAM: IN CHEST 1 | | VIEW HISTORY: Hypoxia. Intubated.COMPARISON: 5/6/18FINDINGS: Endotracheal tube tip is 2 | | [...] | + + + + + | [facility] | [address] | [place] [address] | | | SERVICES, CORE | VILMA [...] [facility] | [address] | [place] [address] | | | SERVICES, CORE | PARK [...] | | | LABORATORY | | | [place]AN | | | SERVICES, | | | [...] the MDRD equation recommended by the | [facility] | | National Kidney Disease Education Program. [...] | + + + + + | [facility] | [address] | [place] [address] | | | SERVICES, CORE | PARK [...] [facility] | [address] | [place] [address] | | | SERVICES, NATALEE | VILMA [...] [facility] | [address] | [place], [place] | | | [facility] | [address] | [address] | | | TESTS | | | [...] [facility] | [address] | [place], [place] | | | GLORIA GENAO OF CARE | [address] | [address] | | | TESTS | | | [...] [facility] | [address] | [place], [place] | | | GLORIA GENAO OF CARE | [address] | [address] | | | TESTS | | | [...] - [facility] | [address] | [place], [place] | | | [facility] [facility] | [address] | [address] | | | TESTS | | | [...] | | + +---------+ + + | [facility] | | | | | [facility] | | | | + [...] detected | AIRPORT - | | | [place] | + + + + + + + + | Performing | Address | City/State/Zipcode | Phone Number | | Organization | | | | + + + + + | [facility] | [address] | [place] [address] | | | [place] | | | [...] | + + + + + | [facility] | [address] | [place] [address] | | | SERVICES, CORE | VILMA [...] Note | + + | Service Account, Ziptr In Interface - 09/03/2017 9:54 AM PDT [...] detected | [facility] - | | | [place] | + + + + + + + + | Performing | Address | City/State/Zipcode | Phone Number | | Organization | | | | + + + + + | [facility] | [address] | [place] [address] | | | [place] | | | | + + + [...] [facility] | [address] | [place] [address] | | | SERVICES, CORE | VILMA [...] | + + + + + | [facility] | [address] | [place] [address] | | | ELIN, NATALEE | VILMA [...] | | | LABORATORY | | | [place]OREAN | | | SERVICES, | | | [...] [facility] | [address] | [place] [address] | | | SERVICES, CORE | PARK [...] | + + + + + | [facility] | [address] | [place] [address] | | | [facility], [facility] | [address] | | | + + + + + OPERATION RECORD (09/02/2017 6:53 PM PDT) + + | Procedure Note | + + | Fidelina Shields MD - 09/02/2017 6:53 PM PDT Date of Service: 09/02/2017 | | Attending Surgeon: Fidelina Shields MD Waybill Clerk(s): | | Ajay Butts MD, resident. Preoperative [...] ICU in stable condition.Ajay Butts, | | MDMackyinka Shields MDTBK/MODLDD: 09/02/2017 18:15:29DT: 09/02/2017 18:53:52Job #: | | [id number] to federal Medicare and Medicaid regulations I was present for | | the entire procedure.Fidelina Shields MDAssistant ProfessorDepartment of SurgeryOffice: | | [phone]: [id number] has been electronically signed by Fidelina Shields MD, | | 09/03/2017 at 9:11 AM. | | | | | |Fidelina Shields MD | |Cost Control Specialist | |Department of Surgery | |Office: [phone] | |Pager: [phone] | | | |This has been electronically [...] | + + + + + | [facility] | [address] | [place] [address] | | | SERVICES, CORE | PARK [...] | + + + + + | [facility] | [address] | [place] [address] | | | SERVICES, CORE | VILMA [...] + | [facility] - | [address] | [place] [address] | | | [place] | | | | + + + [...] [facility] | [address] | [place] [address] | | | SERVICES, NATALEE | VILAM [...] | | | LABORATORY | | | [place]AN | | | SERVICES, | | | [...] | + + + + + | [facility] | [address] | [place] [address] | | | SERVICES, CORE | VILMA [...] Note | + + | Service Account, Zi[employer] In Interface - 09/02/2017 4:25 PM PDT [...] Bedrest Initial surgical | | | contact: [facility] Vicente Butts, Surgery [phone] Pursuant | | | to federal Medicare and Medicaid regulations I was present for the | | | entire procedure. Fidelina Shields MD Cost Control Specialist | | | Department of Surgery Office: [phone] Pager: [phone] This has | | | been electronically [...] [facility] | [address] | [place] [address] | | | SERVICES, CORE | PARK [...] | + + + + + | [facility] | [address] | [place] [address] | | | SERVICES, [facility] | [address] | | | + + + + + OPERATION RECORD (09/02/2017 6:51 AM PDT) + ---+ | Procedure Note | + ---+ | Fidelina Shields MD - 09/02/2017 6:51 AM PDT Date of Service: 09/01/2017 | | Attending Surgeon: Fidelina Shields MD Waybill Clerk(s): Haim Peralta MD. | | Ajay Butts [...] of the angiography.Ajay | | Truong Casarez, TBK/MODLDD: 09/02/2017 06:17:53DT: 09/02/2017 | | 06:51:37Job #: [id number] to federal Medicare and Medicaid regulations I | | was present for the entire procedure.Fidelina Shields MDAssscarlett ProfessorDepartment of | | SurgeryOffice: [phone]: [id number] has been electronically signed by Fidelina Radford | MD Cornelius, 09/02/2017 at 10:40 AM. | | | | | |Pursuant to federal Medicare and Medicaid regulations I was present for the entire procedur e. | | | | | | | |Fidelina Shields MD | |Cost Control Specialist | |Department of Surgery | |Office: [phone] | |Pager: [phone] | | | |This has been electronically signed by Fidelina Sheilds MD, 09/02/2017 at 10:40 AM. | + [...] | + + + + + | [facility] | [address] | [place] [address] | | | SERVICES, CORE | VILMA [...] | + + + + + | [facility] | [address] | [place] [address] | | | SERVICES, CORE | PARK [...] + + + + | PRODUCT | [id number] | | [facility] | | | UNIT [...] + + + + | EXPIRATION | [id number] | | [facility] | | | DATE [...] + + + + | BLOOD | [id number] | | [facility] | | | PRODUCT [...] [facility] | [address] | [place] [address] | | | SERVICES, | [address] [...] | + + + + + | [facility] | [address] | [place] [address] | | | SERVICES, NATALEE | VILMA [...] | | | LABORATORY | | | [place]AN | | | SERVICES, | | | [...] | + + + + + | [facility] | [address] | [place] [address] | | | SERVICES, CORE | VILMA [...] | + + + + + | [facility] | [address] | [place] [address] | | | ELIN, NATALEE | [address] [...] | | | | INFORMATION: | | [place] | | | | [employer]-TB Gold | [...] (http://www.cdc.gov/mmwr | | | | | | /preview/mmwrhtml/[email or web address] | | | | | | [email or web address].htm), [...] [facility] - | | | | by [employer], | | AIRPORT - | | | | | | [place] | | | | [address] | | | | | | [address] [facility] [place] | | | | | | [address] | | | | | | | | | | | | [email or web address] [email or web address] | | | | | | [...] + | [facility] - | [address] | [place] [address] | | | [place] | | | [...] | + + + + + | [facility] | [address] | [place] [address] | | | SERVICES, CORE | PARK [...] | + + + + + | [facility] | [address] | [place] [address] | | | SERVICES, CORE | VILMA [...] At | + + + | EXAM: IN CHEST 1 VIEW HISTORY: Hypoxemia COMPARISON: 09/01/17 | [facility] | | FINDINGS: The endotracheal tube, gastric [...] Interface - 09/02/2017 10:34 AM PDT EXAM: IN CHEST 1 | | VIEW HISTORY: HypoxemiaCOMPARISON: [...] | | + +---------+ + + | [facility] | | | | | VOICE [...] | + + + + + | [facility] | [address] | [place] [address] | | | SERVICES, CORE | PARK [...] (L) | 41.0 - 53.0 % | [facility] | | | | | | LABORATORY [...] | + + + + + | [facility] | [address] | [place] [address] | | | SERVICES, CORE | PARK [...] + + + + | PRODUCT | [id number] | | [facility] | | | UNIT [...] + + + + | EXPIRATION | [id number] | | [facility] | | | DATE [...] + + + + | BLOOD | [id number] | | [facility] | | | PRODUCT [...] | + + + + + | [facility] | [address] | [place] [address] | | | SERVICES, | [address] [...] | 122 (L) | >300 mmHg | [facility] | | | RATIO | | | [...] | + + + + + | [facility] | [address] | [place] [address] | | | SERVICES, CORE | PARK [...] [facility] | [address] | [place] [address] | | | NATALEE WORTHINGTON | VILMA [...] | + + + + + | [facility] | [address] | [place] [address] | | | SERVICES, CORE | VILMA [...] | | | LABORATORY | | | [place]AN | | | SERVICES, | | | [...] + + | Performing | Address | City/State/[facility] | Phone Number | | Organization | | | | + + + + + | [facility] | [address] | [place] [address] | | | NATALEE WORTHINGTON | VILMA [...] LABORATORY | [address] | [place] [address] | | | [facility] | [address] | | | + [...] | Previous result was 1.19 | | [facility], | | | | mmol/L on [...] | + + + + + | [facility] | [address] | [place] [address] | | | NATALEE WORTHINGTON | [address] [...] micropuncture access set was exchanged for a [employer] wire. Under | | | fluoroscopic guidance, a 5 Fr flush catheter was used to evaluate the | | | distal abdominal aorta and pelvic vasculature. A wire and catheter | | | were then used to select the left common and internal iliac arteries | | | from the right OFFICE AUTOMATION CLERK approach. DSA was performed from the left [...] | | iliac arteries from the right OFFICE AUTOMATION CLERK approach. DSA was performed from the left [...] and internal iliac arteries from the right OFFICE AUTOMATION CLERK approach. DSA was performed from the left [...] [facility] | [address] | [place], [place] | | | [facility]ARE | [address] | [address] | | | TESTS | | | | + + + + + EXPLORATORY LAPAROTOMY (09/01/2017 12:31 PM PDT) + + + | Narrative | Performed At | + + + | Fidelina Shields MD 09/01/2017 12:42 PM BRIEF OPERATIVE NOTE: | | | Date: 09/01/2017 Author: Fidelina Shields MD | | | Attending Physician: Fidelina Shields MD Waybill Clerk(s): Haim Peralta | | | , Vicente Butts MD, [facility] MS3 Prior to the | | [...] case. | | | Fidelina Shields MD Cost Control Specialist Division of Trauma, | | | Critical Care and Acute Care Surgery Office: [phone] Pager: | | | [phone] | | + + + ABG-FULL ABL, [...] [facility] | [address] | [place], [place] | | | [facility]ARE | [address] | [address] | | | TESTS | | | [...] [facility] | [address] | [place] [address] | | | ELIN, NATALEE | VILMA [...] | | | | | mmol/L | [facility] | | | | | [...] [facility] | [address] | [place], [place] | | | [facility]IA GENAO OF [facility] | [address] | [address] | | | TESTS | | | [...] + + + + | PRODUCT | [id number] | | [facility] | | | UNIT [...] + + + + | EXPIRATION | [id number] | | [facility] | | | DATE [...] + + + + | BLOOD | [id number] | | [facility] | | | PRODUCT [...] [facility] | [address] | [place] [address] | | | SERVICES, | [address] [...] + + + + | PRODUCT | [id number] | | [facility] | | | UNIT [...] + + + + | EXPIRATION | [id number] | | [facility] | | | DATE [...] + + + + | BLOOD | [id number] | | [facility] | | | PRODUCT [...] [facility] | [address] | [place] [address] | | | SERVICES, | [address] [...] + + + + | PRODUCT | [id number] | | [facility] | | | UNIT [...] + + + + | EXPIRATION | [id number] | | [facility] | | | DATE [...] + + + + | BLOOD | [id number] | | [facility] | | | PRODUCT [...] | + + + + + | [facility] | [address] | [place] [address] | | | SERVICES, | [address] [...] + + + + | PRODUCT | [id number] | | [facility] | | | UNIT [...] + + + + | EXPIRATION | [id number] | | [facility] | | | DATE [...] + + + + | BLOOD | [id number] | | [facility] | | | PRODUCT [...] | + + + + + | [facility] | [address] | [place] [address] | | | SERVICES, | [address] [...] + + + + | PRODUCT | [id number] | | [facility] | | | UNIT [...] + + + + | EXPIRATION | [id number] | | [facility] | | | DATE [...] + + + + | BLOOD | [id number] | | [facility] | | | PRODUCT [...] | + + + + + | [facility] | [address] | [place] [address] | | | SERVICES, | [address] [...] + + + + | PRODUCT | [id number] | | [facility] | | | UNIT [...] + + + + | EXPIRATION | [id number] | | [facility] | | | DATE [...] + + + + | BLOOD | [id number] | | [facility] | | | PRODUCT [...] [facility] | [address] | [place] [address] | | | SERVICES, | [address] [...] + + + + | PRODUCT | [id number] | | [facility] | | | UNIT [...] + + + + | EXPIRATION | [id number] | | [facility] | | | DATE [...] + + + + | BLOOD | [id number] | | [facility] | | | PRODUCT [...] [facility] | [address] | [place] [address] | | | SERVICES, | [address] [...] + + + + | PRODUCT | [id number] | | [facility] | | | UNIT [...] + + + + | EXPIRATION | [id number] | | [facility] | | | DATE [...] + + + + | BLOOD | [id number] | | [facility] | | | PRODUCT [...] [facility] | [address] | [place] [address] | | | SERVICES, | [address] [...] + + + + | PRODUCT | [id number] | | [facility] | | | UNIT [...] + + + + | EXPIRATION | [id number] | | [facility] | | | DATE [...] + + + + | BLOOD | [id number] | | [facility] | | | PRODUCT [...] [facility] | [address] | [place] [address] | | | SERVICES, | [address] [...] + + + + | PRODUCT | [id number] | | [facility] | | | UNIT [...] + + + + | EXPIRATION | [id number] | | [facility] | | | DATE [...] + + + + | BLOOD | [id number] | | [facility] | | | PRODUCT [...] [facility] | [address] | [place] [address] | | | SERVICES, | [address] [...] + + + + | PRODUCT | [id number] | | [facility] | | | UNIT [...] + + + + | EXPIRATION | [id number] | | [facility] | | | DATE [...] + + + + | BLOOD | [id number] | | [facility] | | | PRODUCT [...] | + + + + + | [facility] | [address] | [place] [address] | | | SERVICES, | [address] [...] + + + + | PRODUCT | [id number] | | [facility] | | | UNIT [...] + + + + | EXPIRATION | [id number] | | [facility] | | | DATE [...] + + + + | BLOOD | [id number] | | [facility] | | | PRODUCT [...] | + + + + + | [facility] | [address] | [place] [address] | | | SERVICES, | [address] [...] + + + + | PRODUCT | [id number] | | [facility] | | | UNIT [...] + + + + | EXPIRATION | [id number] | | [facility] | | | DATE [...] + + + + | BLOOD | [id number] | | [facility] | | | PRODUCT [...] | + + + + + | [facility] | [address] | [place] [address] | | | SERVICES, | [address] [...] + + + + | PRODUCT | [id number] | | [facility] | | | UNIT [...] + + + + | EXPIRATION | [id number] | | [facility] | | | DATE [...] + + + + | BLOOD | [id number] | | [facility] | | | PRODUCT [...] [facility] | [address] | [place] [address] | | | SERVICES, | [address] [...] + + + + | PRODUCT | [id number] | | [facility] | | | UNIT [...] + + + + | EXPIRATION | [id number] | | [facility] | | | DATE [...] + + + + | BLOOD | [id number] | | [facility] | | | PRODUCT [...] [facility] | [address] | [place] [address] | | | SERVICES, | [address] [...] + + + + | PRODUCT | [id number] | | [facility] | | | UNIT [...] + + + + | EXPIRATION | [id number] | | [facility] | | | DATE [...] + + + + | BLOOD | [id number] | | [facility] | | | PRODUCT [...] [facility] | [address] | [place] [address] | | | SERVICES, | [address] [...] + + + + | PRODUCT | [id number] | | [facility] | | | UNIT [...] + + + + | EXPIRATION | [id number] | | [facility] | | | DATE [...] + + + + | BLOOD | [id number] | | [facility] | | | PRODUCT [...] [facility] | [address] | [place] [address] | | | SERVICES, | [address] [...] + + + + | PRODUCT | [id number] | | [facility] | | | UNIT [...] + + + + | EXPIRATION | [id number] | | [facility] | | | DATE [...] + + + + | BLOOD | [id number] | | [facility] | | | PRODUCT [...] [facility] | [address] | [place] [address] | | | SERVICES, | [address] [...] + + + + | PRODUCT | [id number] | | [facility] | | | UNIT [...] + + + + | EXPIRATION | [id number] | | [facility] | | | DATE [...] + + + + | BLOOD | [id number] | | [facility] | | | PRODUCT [...] [facility] | [address] | [place] [address] | | | SERVICES, | [address] [...] + + + + | PRODUCT | [id number] | | [facility] | | | UNIT [...] + + + + | EXPIRATION | [id number] | | [facility] | | | DATE [...] + + + + | BLOOD | [id number] | | [facility] | | | PRODUCT [...] [facility] | [address] | [place] [address] | | | SERVICES, | [address] [...] + + + + | PRODUCT | [id number] | | [facility] | | | UNIT [...] + + + + | EXPIRATION | [id number] | | [facility] | | | DATE [...] + + + + | BLOOD | [id number] | | [facility] | | | PRODUCT [...] [facility] | [address] | [place] [address] | | | SERVICES, | [address] [...] + + + + | PRODUCT | [id number] | | [facility] | | | UNIT [...] + + + + | EXPIRATION | [id number] | | [facility] | | | DATE [...] + + + + | BLOOD | [id number] | | [facility] | | | PRODUCT [...] | + + + + + | [facility] | [address] | [place] [address] | | | SERVICES, | [address] [...] + + + + | PRODUCT | [id number] | | [facility] | | | UNIT [...] + + + + | EXPIRATION | [id number] | | [facility] | | | DATE [...] + + + + | BLOOD | [id number] | | [facility] | | | PRODUCT [...] | + + + + + | [facility] | [address] | [place] [address] | | | SERVICES, | [address] [...] + + + + | PRODUCT | [id number] | | [facility] | | | UNIT [...] + + + + | EXPIRATION | [id number] | | [facility] | | | DATE [...] + + + + | BLOOD | [id number] | | [facility] | | | PRODUCT [...] | + + + + + | [facility] | [address] | [place] [address] | | | SERVICES, | [address] [...] + + + + | PRODUCT | [id number] | | [facility] | | | UNIT [...] + + + + | EXPIRATION | [id number] | | [facility] | | | DATE [...] + + + + | BLOOD | [id number] | | [facility] | | | PRODUCT [...] | + + + + + | [facility] | [address] | [place] [address] | | | SERVICES, | [address] [...] + + + + | PRODUCT | [id number] | | [facility] | | | UNIT [...] + + + + | EXPIRATION | [id number] | | [facility] | | | DATE [...] + + + + | BLOOD | [id number] | | [facility] | | | PRODUCT [...] [facility] | [address] | [place] [address] | | | SERVICES, | [address] [...] | + + + + + | [facility] | [address] | [place] [address] | | | ELIN, NATALEE | [address] [...] | | | LABORATORY | | | [employer] | | | SERVICES, | | | [...] [facility] | [address] | [place] [address] | | | SERVICES, CORE | P[address] [...] | + + + + + | [facility] | [address] | [place] [address] | | | SERVICES, CORE | [address] [...] 27.1 | 21 - 28 mmol/L | [facility] - | | | ARTERIAL, | | [...] [facility] | [address] | [place], [place] | | | [facility] | [address] | [address] | | | TESTS | | | | + + + + + X-RAY PORTABLE CHEST 1 VIEW (09/01/2017 9:18 AM PDT) + + | Specimen | + + | | + + + + + | Narrative | Performed At | + + + | EXAM: IN CHEST 1 VIEW HISTORY: Intubated COMPARISON: 08/31/17 [...] Interface - 09/02/2017 1:23 PM PDT EXAM: IN CHEST 1 | | VIEW HISTORY: IntubatedCOMPARISON: [...] Note | + + | Service Account, Zi[employer] In Interface - 09/01/2017 1:40 PM PDT [...] + + + + | PRODUCT | [id number] | | [facility] | | | UNIT [...] + + + + | EXPIRATION | [id number] | | [facility] | | | DATE [...] + + + + | BLOOD | [id number] | | [facility] | | | PRODUCT [...] | + + + + + | [facility] | [address] | [place] [address] | | | SERVICES, | [address] [...] + + + + | PRODUCT | [id number] | | [facility] | | | UNIT [...] + + + + | EXPIRATION | [id number] | | [facility] | | | DATE [...] + + + + | BLOOD | [id number] | | [facility] | | | PRODUCT [...] [facility] | [address] | [place] [address] | | | SERVICES, | [address] [...] + + + + | PRODUCT | [id number] | | [facility] | | | UNIT [...] + + + + | EXPIRATION | [id number] | | [facility] | | | DATE [...] + + + + | BLOOD | [id number] | | [facility] | | | PRODUCT [...] [facility] | [address] | [place] [address] | | | SERVICES, | [address] [...] + + + + | PRODUCT | [id number] | | [facility] | | | UNIT [...] + + + + | EXPIRATION | [id number] | | [facility] | | | DATE [...] + + + + | BLOOD | [id number] | | [facility] | | | PRODUCT [...] [facility] | [address] | [place] [address] | | | SERVICES, | [address] [...] + + + + | PRODUCT | [id number] | | [facility] | | | UNIT [...] + + + + | EXPIRATION | [id number] | | [facility] | | | DATE [...] + + + + | BLOOD | [id number] | | [facility] | | | PRODUCT [...] [facility] | [address] | [place] [address] | | | SERVICES, | [address] [...] + + + + | PRODUCT | [id number] | | [facility] | | | UNIT [...] + + + + | EXPIRATION | [id number] | | [facility] | | | DATE [...] + + + + | BLOOD | [id number] | | [facility] | | | PRODUCT [...] [facility] | [address] | [place] [address] | | | SERVICES, | [address] [...] + + + + | PRODUCT | [id number] | | [facility] | | | UNIT [...] + + + + | EXPIRATION | [id number] | | [facility] | | | DATE [...] + + + + | BLOOD | [id number] | | [facility] | | | PRODUCT [...] [facility] | [address] | [place] [address] | | | SERVICES, | [address] [...] + + + + | PRODUCT | [id number] | | [facility] | | | UNIT [...] + + + + | EXPIRATION | [id number] | | [facility] | | | DATE [...] + + + + | BLOOD | [id number] | | [facility] | | | PRODUCT [...] | + + + + + | [facility] | [address] | [place] [address] | | | SERVICES, | [address] [...] + + + + | PRODUCT | [id number] | | [facility] | | | UNIT [...] + + + + | EXPIRATION | [id number] | | [facility] | | | DATE [...] + + + + | BLOOD | [id number] | | [facility] | | | PRODUCT [...] | + + + + + | [facility] | [address] | [place] [address] | | | SERVICES, | [address] [...] | + + + + + | [facility] | [address] | [place] [address] | | | SERVICES, CORE | PARK [...] [facility] | [address] | [place] [address] | | | SERVICES, CORE | PARK [...] Discussed with | | | trauma ICU manager internship by Dr. Yang at 4:38 AM. [...] interspinous ligament is injured.Discussed with trauma ICU manager internship | | by Dr. Yang at 4:38 AM.I have personally reviewed the images and, if necessary, | | edited the report. I agree with the report as now presented. | |3. Extensive soft tissue edema extending into the cervical and upper thoracic interspinous space, suggestive of interspinous ligament is injured. | | | |Discussed with trauma ICU manager internship by Dr. Yang at 4:38 AM. [...] | | | LABORATORY | | | [employer] | | | SERVICES, | | | [...] [facility] | [address] | [place] [address] | | | SERVICES, CORE | PARK [...] | + + + + + | [facility] | [address] | [place] [address] | | | SERVICES, CORE | PARK [...] [facility] | [address] | [place] [address] | | | SERVICES, CORE | PARK [...] | + + + + + | [facility] | [address] | [place] [address] | | | [facility] | [address] | | | + + [...] pleural spaced was performed. A 32 size Tajik chest tube was | | | placed [...] | ventricles. Discussed with the trauma ICU manager internship at 12:12 AM by | | | [...] ventricles.Discussed with | | the trauma ICU manager internship at 12:[address] Yang.I [...] | | |Discussed with the trauma ICU manager internship at 12:[address] Yang. [...] [facility] | [address] | [place], [place] | | | [facility]IA GE[facility] | [address] | [address] | | | TESTS | | | [...] [facility] | [address] | [place] [address] | | | SERVICES, CORE | PARK [...] [facility] | [address] | [place] [address] | | | NATALEE [place] | [address] [...] Note | + + | Service Account, [facility] [employer] Res In Interface - 09/01/2017 1:40 PM [...] | | + +---------+ + + | [facility] | | | | | VOICE RECOGNITION | | | | + +---------+ + + X-RAY HUMERUS 2 VIEWS LEFT (08/31/2017 8:56 PM PDT) + + | Specimen | + + | | + + + + + | Narrative | Performed At | + + + | EXAM: SHOULDER 2 VIEWS, ELBOW 2 VIEWS, HUMERUS 2 VIEWS LEFT 08/31/17 | [facility] | | HISTORY: Trauma, pain. COMPARISON: None. [...] | | + +---------+ + + | [facility] | | | | | VOICE [...] | + + + + + | [facility] | [address] | [place] [address] | | | SERVICES, CORE | [address] | | | + + + + + X-RAY PORTABLE CHEST 1 VIEW (08/31/2017 7:07 PM PDT) + + | Specimen | + + | | + + + + + | Narrative | Performed At | + + + | STUDY: IN CHEST 1 VIEW HISTORY: Trauma COMPARISON: [facility] | | 08/31/2017 FINDINGS: Endotracheal tube with [...] Interface - 09/01/2017 1:44 PM PDT STUDY: IN CHEST 1 | | VIEWHISTORY: TraumaCOMPARISON: CT [...] | | + +---------+ + + | [facility] | | | | | VOICE [...] | + + + + + | [facility] | [address] | [place] [address] | | | SERVICES, CORE | [address] [...] | | + +---------+ + + | [facility] | | | | | VOICE [...] rib, nondisplaced-Left | | 1st rib fracture, mlhjjienzemh-Phr-cadiufhqv left lateral 8th rib fracture-T12 fracture | [...] | + + + + + | [facility] [employer] | [address] | [place] [address] | | | ELIN, | [address] [...] [facility] | [address] | [place] [address] | | | SERVICES, | [address] [...] [facility] | [address] | [place] [address] | | | SERVICES, | [address] [...] [facility] | [address] | [place], [place] | | | [facility] | [address] | [address] | | | TESTS | | | [...] + + | Performing | Address | City/[facility] | Phone Number | | Organization | | | | + + + + + | [facility] | [address] | [place], [place] | | | [facility] | [address] | [address] | | | TESTS | | | [...] [facility] | [address] | [place], [place] | | | [facility] | [facility] | [address] | | | TESTS | | | [...] [facility] | | | | | | GLOIRA [facility] | | [...] - [facility] | [address] | [place], [place] | | | [facility] | [facility] | [address] | | | TESTS | | | [...] + + + + | PRODUCT | [id number] | | [facility] | | | UNIT [...] + + + + | EXPIRATION | [id number] | | [facility] | | | DATE [...] + + + + | BLOOD | [id number] | | [facility] | | | PRODUCT [...] [facility] | [address] | [place] [address] | | | SERVICES, | [address] [...] + + + + | PRODUCT | [id number] | | [facility] | | | UNIT [...] + + + + | EXPIRATION | [id number] | | [facility] | | | DATE [...] + + + + | BLOOD | [id number] | | [facility] | | | PRODUCT [...] [facility] | [address] | [place] [address] | | | SERVICES, | [address] [...] + + + + | PRODUCT | [id number] | | [facility] | | | UNIT [...] + + + + | EXPIRATION | [id number] | | [facility] | | | DATE [...] + + + + | BLOOD | [id number] | | [facility] | | | PRODUCT [...] | + + + + + | [facility] | [address] | [place] [address] | | | SERVICES, | [address] [...] + + + + | PRODUCT | [id number] | | [facility] | | | UNIT [...] + + + + | EXPIRATION | [id number] | | [facility] | | | DATE [...] + + + + | BLOOD | [id number] | | [facility] | | | PRODUCT [...] | + + + + + | [facility] | [address] | [place] [address] | | | SERVICES, | [address] [...] + + + + | PRODUCT | [id number] | | [facility] | | | UNIT [...] + + + + | EXPIRATION | [id number] | | [facility] | | | DATE [...] + + + + | BLOOD | [id number] | | [facility] | | | PRODUCT [...] | + + + + + | [facility] | [address] | [place] [address] | | | SERVICES, | [address] [...] + + + + | PRODUCT | [id number] | | [facility] | | | UNIT [...] + + + + | EXPIRATION | [id number] | | [facility] | | | DATE [...] + + + + | BLOOD | [id number] | | [facility] | | | PRODUCT [...] | + + + + + | [facility] | [address] | [place] [address] | | | SERVICES, | [address] [...] + + + + | PRODUCT | [id number] | | [facility] | | | UNIT [...] + + + + | EXPIRATION | [id number] | | [facility] | | | DATE [...] + + + + | BLOOD | [id number] | | [facility] | | | PRODUCT [...] | + + + + + | [facility] | [address] | [place] [address] | | | ELIN, | [address] [...] + + + + | PRODUCT | [id number] | | [facility] | | | UNIT [...] + + + + | EXPIRATION | [id number] | | [facility] | | | DATE [...] + + + + | BLOOD | [id number] | | [facility] | | | PRODUCT [...] [facility] | [address] | [place] [address] | | | SERVICES, | [address] [...] | + + + + + | [facility] | [address] | [place] [address] | | | SERVICES, CORE | [address] [...] | | | LABORATORY | | | [employer] | | | SERVICES, | | | [...] | + + + + + | [facility] | [address] | [place] [address] | | | SERVICES, CORE | [address] [...] | + + + + + | [facility] | [address] | [place] [address] | | | ELIN, CORE | [address] [...] [facility] | [address] | [place] [address] | | | SERVICES, CORE | P[address] [...] | + + + + + | [facility] | [address] | [place] [address] | | | SERVICES, CORE | [address] [...] | + + + + + | [facility] | [address] | [place] [address] | | | SERVICES, CORE | [address] [...] intravenous, NEEDED, | | | Starting Sho 5/31/18 at 0029, | | | Until Sat12/06/17 [...]
--- OUTSIDE RECORDS SUMMARY | ~2020-02-06 | XMS | Encounter Summary ---
Demographics + + + | Address | [address] | | | [place] [address] | + + + | Home Phone [...] | Author | [facility] [employer] [facility] | + + + | Organization | [facility] [employer] [facility] | + + + | Address | Unknown | + + + | Phone | Unavailable | + + + Support + + +---------+ + | Name | Relationship | Address | Phone | + + +---------+ + | Kaylie Baig | ECON | Unknown | | + + +---------+ + Care Team Providers + +------+ + | Care Hay Chopper Name | Role | Phone | + [...] | | | | | | [facility] | | | | | | Hospital Admitting | | | | | | Desk Located on the | | | | | | 9th floor | | | | | | [place], [place] | | | | | | [address] | | | +--------+ + + + [...]
--- OUTSIDE RECORDS SUMMARY | ~2020-02-06 | XMS | Encounter Summary ---
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 | | | [phone] | | | or go | | [...] | | | Dates | | | [place] | | | | | | Neighb [...] + | [facility] | [address] | [place] [address] | | | [facility] | | | | | LABORATORY [...] + | NIALL ANDREWS | [address] | [place] [address] | | | [facility] | | | | | LABORATORY | [...] + + | [facility] | [address] | [place] [address] | | | [facility] | [...] [address] | [place] [address] | | | [facility] | | | | | LABORATORY [...] + + + | Glucose | 98Comment: Nicaraguan | 65 - 99 mg/dL | [facility] [...] + + | NIALL ANDREWS | [address] | [place] [address] | | | [facility] | | | | | LABORATORY | | | | + + + + + Hemoglobin A1C (03/18/2017 4:17 AM PST) + + + + + + | Component | Value | Ref Range | Performed | Pathologist | | | | | At | Signature | + + + + + + | Hemoglobin | 5.2Comment: The Nicaraguan | 4.3 - 6.1 % | [facility] [...] + | [facility] | [address] | [place] [address] | | | [facility] | | | | | LABORATORY | [...] + | NIALL ANDREWS | [address] | [place] [address] | | | [facility] | | | | | LABORATORY | [...] + | [facility] | [address] | [place] [address] | | | [facility] | [...] + + | Glucose | 198 (H)Comment: Nicaraguan | 65 - 99 mg/dL | [facility] | | | | Diabetes Association | [...] | | | | failure.For | | [place] | | | | Americans, multiply the [...] + + | [facility] | [address] | [place] [address] | | | [facility] | | | | | LABORATORY [...] + | NIALL ANDREWS | [address] | [place] [address] | | | [facility] | | | | | LABORATORY | [...] + | [facility] | [address] | [place] [address] | | | [facility] | [...] + + | COYE JULIANA | [address] | [place] [address] | | | [facility] | | | | | LABORATORY | [...] - 1.030 | [facility] | | | [place] | | | [facility]CRED | | | [...] + + | NIALL ANDREWS | [address] | [place] [address] | | | [facility] | | | | | LABORATORY | [...] + + | NIALL ANDREWS | [address] | [place] [address] | | | [facility] | | | | | LABORATORY | [...] + + | NIALL ANDREWS | [address] | [place] [address] | | | [facility] | | | | | LABORATORY | [...] + + | Glucose | 125 (H)Comment: Nicaraguan | 65 - 99 mg/dL | [facility] [...] + + | NIALL ANDREWS | [address] | [place] [address] | | | [facility] | | | | | LABORATORY | [...] + + | [facility] | [address] | [place] [address] | | | [facility] | | | | | LABORATORY | [...] | | | | | | use [place] 10/325 if ordered. If | | | [...] | | | | | | use [place] 10/325 if ordered. If | | | [...] scheduled: AC, | | | NPO, Daytime 8401-7907 Use NIGHT | | | DOSE for doses scheduled: | | | HS, 3AM, Nighttime [id number] Only | | | for use with [...]
--- OUTSIDE RECORDS SUMMARY | ~2020-02-06 | XMS | Encounter Summary ---
Demographics + + + | Address | [address] | | | [place] [address] | + + + | Home Phone [...] Author | [facility] | + + + | Organization | [facility] [employer] [facility] | + + + | Address | Unknown | + + + | Phone | Unavailable | + + + Support + + +---------+ + | Name | Relationship | Address | Phone | + + +---------+ + | Kaylie Baig | ECON | Unknown | | + + +---------+ + Care Team Providers + +------+ + | Care Mobile Disc Jockey Name | Role | Phone | + [...] + + + + | 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
--- OUTSIDE RECORDS SUMMARY | ~2020-02-06 | XMS | Encounter Summary ---
Demographics + + + | Address | [address] | | | [place] [address] | + + + | Home Phone [...] + + + | Author | [facility] | + + + | Organization | [facility] | + + + | Address | Unknown | + + + | Phone | Unavailable | + + + Support + + +---------+ + | Name | Relationship | Address | Phone | + + +---------+ + | Kaylie Baig | ECON | Unknown | | + + +---------+ + Care Team Providers + +------+ + | Care Front Office Spec Name | Role | Phone | + [...] | | | | Hospital Admitting | [place], [place] | | | | | Desk Located on the | [address] | | | | | 9th floor | [phone] | | | | | [place], [place] | | | | | | [address] | Mariann Victor CRNA | | | | | | [address] | | | | | | [address] | | | | | | [place], [place] | | | | | | [address] | | | | | | [phone] | | | | | | | [...] | | | | Lumen | Yes; [id number]; 11/09/17; 1154; | | | | | [...] CRNA - 11/05/2017 7:13 PM PDTGreyson Temple [id number] No Known Allergies History reviewed. No pertinent [...] - 11/05/2017 3:31 PM PDT [place] [id number] No Known Allergies NPO:NPO Status: MN Last [...] Date RATE 71 11/04/2017 ATRIALRATE 73 11/04/2017 CA 142 11/04/2017 QRS 127 11/04/2017 QT 406 11/04/2017 PAXIS 64 11/04/2017 RAXIS 86 11/04/2017 TAXIS 43 11/04/2017 Preoperative Adult Anesthesia Plan Last edited 11/05/17 0451 by Mariann Victor CRNA ROS: HPI: Pt [...] Within Defined Limits except as noted below Urology/Magazine Keeper: Within Defined Limits except as noted below [...] > 11/05/17 1531 Mariann Victor CRNA Nurse Mixing Machine Feeder Addend 11/05/17 1530 Mariann Victor CRNA Nurse Mixing Machine Feeder Addend 11/05/17 1529 Mariann Victor CRNA Nurse Mixing Machine Feeder Sign 11/05/17 1524 Mariann Victor CRNA Nurse Mixing Machine Feeder Share Anesthesia Plan Comments ASA ASA 3 [...] Within Defined Limits except as noted below Urology/Magazine Keeper: Within Defined Limits except as noted below [...]
--- OUTSIDE RECORDS SUMMARY | ~2020-02-06 | XMS | Encounter Summary ---
Demographics + + + | Address | [address] | | | [place] [address] | + + + | Home Phone [...] | [facility] [facility] | + + + | Organization | [facility] [employer] [facility] | + + + | Address | Unknown | + + + | Phone | Unavailable | + + + Support + + +---------+ + | Name | Relationship | Address | Phone | + + +---------+ + | Kaylie Baig | ECON | Unknown | | + + +---------+ + Care Team Providers + +------+ + | Care Diversional Therapist'S Assistant Name | Role | Phone | [...] | 2018 | Pass | Services at [facility] | | | | | | [address] | | | | | | [place]ola [place]TER[place] | | | | | | [facility], [address] [place] [address] | | | | | | [place], [place] | | | | | | [address] | | | | | | [phone] | | | +--------+ + + + [...]
--- OUTSIDE RECORDS SUMMARY | ~2020-02-06 | XMS | Encounter Summary ---
Demographics + + + | Address | [address] | | | [place] [address] | + + + | Home Phone [...] + + + | Author | [facility] [facility] | + + + | Organization | [facility] [employer] [facility] [...] Team Providers + +------+ + | Care Ict Analyst Name | Role | Phone | [...] [address] | | | | | [facility] | [address] | | | | | Hospital Admitting | [place], [place] | | | | | Desk Located on the | [address] | | | | | 9th floor | [phone] | | | | | [place], [place] | | | | | | [address] | Joslyn Boss, | | | | | | [address] | | | | | | [address] | | | | | | [place], [place] | | | | | | [address] | | | | | | [phone] | | | | | | | [...] MD - 09/01/2017 2:45 PM Edel Temple [id number] Allergies not on file No past surgical [...] - 09/01/2017 10:45 AM PDT [place] [facility] [id number] Allergies not on file NPO:NPO Status: since [...] 0940 Michele Anand MD Resident Share 08/31/17 1742 Joslyn Boss MD Resident Share 08/31/17 1745 Joslyn Boss MD Resident Share Anesthesia Plan [...] | | | 09/01/17 at 1103, Until [place] 09/01/17 | | | | | | [...]
--- OUTSIDE RECORDS SUMMARY | ~2020-02-06 | XMS | Encounter Summary ---
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 Venita Pruitt PA-C [place] [phone] [facility] [place] [address] [place] [facility] [place] [address] Associated attestation - Chaz Hernandez MD - 10/09/2017 3:04 PM PDTI saw and examined th e patient today with Venita Pruitt PA-C, and agree with the assessement and plan as outlined in her note. Plan takeback with NSG, we will place Gabriel-oconnor feeding tube at that time. Chaz Hernandez MD, FACS Diabetes Educator, Trauma, Critical Care and Acute Care Surgery [...] - patient unable to come out of HARDWOOD FLOOR SANDER for now - Will likely need for [...] by patient, but wound remains cl zeferino/dry/intact. Sweet removed 09/17. #Left hemothorax Chest tube placed [...] rafy G tube next week. Sherine Sarmiento, [place] [phone] [facility] [address] [facility] [address] [phone] Associated attestation - Chaz Hernandez MD - 10/08/2017 12:16 PM PDTI saw and examined th e patient today with KESHAWN Martin, and agree with the assessement and plan a s outlined in her note. No acute events. Seems to be slowly improving from MS. Appreciate ps ychiatry recs. Chaz Hernandez MD, FACS Diabetes Educator, Trauma, Critical Care and Acute Care Surgery [...] - patient unable to come out fo HARDWOOD FLOOR SANDER for now - Will likely need for [...] by patient, but wound remains cl zeferino/dry/intact. Sweet removed 09/17. #Left hemothorax Chest tube placed [...] [place] [phone] [facility] [address] [facility] [address] [phone] Associated attestation - Chaz Hernandez MD - 10/07/2017 11:15 AM PDTI saw and examined th e patient today with KESHAWN Martin, and agree with the assessement and plan a s outlined in her note. Will consider changing to bolus TF. Plan Gabriel-oconnor tube next week. Chaz Hernandez MD, FACS Diabetes Educator, Trauma, Critical Care and Acute Care Surgery [...] p atient unable to come out fo HARDWOOD FLOOR SANDER for now Resolved or chronic issues/Plan: #Previous [...] by patient, but wound remains duke n/dry/intact. Sweet removed 09/17. #Left hemothorax Chest tube placed [...] issues, including restraints. Venita Pruitt PA-C [place] [phone] [facility] [place] [address] [place] [phone] Associated attestation - Em Cunningham MD - 10/17/2017 10:13 AM PDTI was present and rou nded with the Advanced Practice Provider today . I interviewed and examined the patient. I reviewed the history, as documented today. I agree with the ASHLEY assessment and plan. TBI has remained stable. On lovenox. Will continue haldol per psych.. EM CUNNINGHAM MD [facility] [address] [place] [address] [address] [place] [address] Venita Pruitt PA-C - 10/05/2017 8:38 AM [...] p atient unable to come out fo HARDWOOD FLOOR SANDER for now Resolved or chronic issues/Plan: #Previous [...] by patient, but wound remains duke n/dry/intact. Sweet removed 09/17. #Left hemothorax Chest tube placed [...] issues, including restraints. Venita Pruitt PA-C P[place] [phone] [facility] [address] [facility] [address] [phone] Associated attestation - Shlomo Bravo MD - 10/06/2017 7:28 AM PDTFormatting of this note m ight be different from the original. I saw and examined Diogenes Temple ([id number]) with the TRAUMA team on 10/05/2017. I [...] incen tive spirometry for pulmonary toliet. manager music for disposition planning and placement. Shlomo Bravo MD [facility] Division of Trauma and Critical Care [facility] InstituteVenita PA-C - 10/04/2017 6:36 AM PDTFormatting of [...] (baseline from previous TBI ) Neck: in [place] collar Respiratory: CTA b.l CV: RRR GI: [...] p atient unable to come out fo HARDWOOD FLOOR SANDER for now Resolved or chronic issues/Plan: #Previous [...] issues, including restraints. Venita Pruitt PA-C [place] [phone] [place] [phone] [facility] [address] [place] On license of [facility] [phone] Associated attestation - Fidelina Shields MD - [...] and only enteral access. Fidelina Shields MD Diabetes Educator Division of Trauma, Critical Care and Acute Care Surgery Office: [phone] Pager: [phone] Leonor Torres ACNP - 10/03/2017 3:13 PM [...] (baseline from previous TBI ) Neck: in [place] collar Respiratory: CTA bilaterally, no distress CV: [...] p atient unable to come out fo HARDWOOD FLOOR SANDER for now Resolved or chronic issues/Plan: Previous [...] PDTAttending: I saw and examined Diogenes Temple ([id number]) with CB Hair on morning rounds 10/03 and agree with the assessment and plan as outlined in this note and participated in the planning of care. Mental status is slightly better, remains sedated but he is interactive and at least somewh at oriented. Enteral nutrition advancing and, as approaches goal, will turn TPN off. Place ment remains a significant issue. Fidelina Shields MD Diabetes Educator Division of Trauma, Critical Care and Acute Care Surgery Office: [phone] Pager: [phone] July Harp PA-C - 10/03/2017 12:58 PM [...] the C-collar when in bed then the HARDWOOD FLOOR SANDER when out of bed until 12/01/17. JULY HARP PA-C [facility] [address] [facility] [address] [place] [address] Associated attestation - Magdiel Stock MD - 10/04/2017 6:02 PM PDTI performed a history a nd physical examination of the patient and discussed the management with the advanced practi ce provider, July Harp PA-C. I reviewed the advanced practice provider's note and agree w ith the plan of care as documented. Continue cervical collar and HARDWOOD FLOOR SANDER for 3 months to ensure fracture healing and prevent development of post-fracture cervical kyphosis. Magdiel Stock MD Diabetes Educator Department of Neurological Surgery [facility] [place] Sherine Sarmiento AGACN - 10/02/2017 12:54 PM PDTFormatting of this note might be d ifferent from the original. Trauma Acute Care - Progress Note Name: DIOGENES TMEPLE HPI: Diogenes Temple is a67 y.o. male [...] (baseline from previous TBI ) Neck: in [place] collar Respiratory: CTA bilaterally, lungs symmetrical, equal chest wall rise, no retractions CV: RRR GI: non tender, soft, active BS, last BM 09/30 : Patient voiding without difficulty Extremities: no peripheral edema, wiggles toes and toes pink and well perfused Musculoskeletal: 5/5 calibration technician strength on right, 3/5 calibration technician strength on left FEN: on TPN, transitioning [...] AMS & delirium - numerous evaluations by C WEB DEVELOPER with trials of PO - now s/p [...] . - C-collar at all times, use HARDWOOD FLOOR SANDER when OOB - Follow-up with Neurosurgery on 10/21 with repeat X-rays #Blunt abdominal trauma #Splenic laceration S/p laparotomies x2. Fascia closed 09/02 Wound vac removed by patient, but wound remains duke n/dry/intact. Sweet removed 09/17. #Left hemothorax Chest tube placed [...] will decrease [place] [phone] Associated attestation - Fidelina Shields MD - 10/02/2017 4:40 PM PDTAttending: I saw and examined Diogenes Temple ([id number]) with KESHAWN Alexander on mornin g rounds [...] back to midline position. May need terminal manager enteral access , but is ~4 weeks s/p damage control laparotomy and risk is higher now than it will be in 7- 14 days and if swallow is not improving then will place prior to DC Fidelina Shields MD Diabetes Educator Division of Trauma, Critical Care and Acute Care Surgery Office: [phone] Pager: [phone] Sherine Sarmiento AGACNP - 10/01/2017 7:27 AM [...] (baseline from previous TBI ) Neck: in [place] collar Respiratory: CTA bilaterally, lungs symmetrical, equal chest wall rise, no retractions CV: RRR GI: non tender, soft, active BS, last BM 09/30 : Patient voiding without difficulty Extremities: no peripheral edema, wiggles toes and toes pink and well perfused Musculoskeletal: 5/5 calibration technician strength on right, 3/5 calibration technician strength on left FEN: on TPN Heme/ID: [...] AMS & delirium - numerous evaluations by C WEB DEVELOPER with trials of PO - now s/p modified barium swallow x2 which indicates aspiration - continue NPO - C WEB DEVELOPER reports that patient working on tongue strength [...] . - C-collar at all times, use HARDWOOD FLOOR SANDER when OOB - Follow-up with Neurosurgery on [...] trauma team and [place]g [phone] Associated attestation - Fidelina Shields MD - 10/02/2017 4:40 PM PDTAttending: I saw and examined Diogenes Temple ([id number]) with KESHAWN Alexander on mornin g rounds 10/01/17 and agree with the assessment and plan as outlined in this note and partic ipated in the planning of care. Will trial DHT placement today, CT head unchanged. Suspect somnolence is medication side ef fect and, if persistent, may need to wean antipsychotic doses. Fidelina Shields MD Diabetes Educator Division of Trauma, Critical Care and Acute Care Surgery Office: [phone] Pager: [phone] Christian Kelley PA-C - 09/30/2017 12:21 PM [...] Fixed and dilated on left Neck: in [place] collar Respiratory: CTA bilaterally, lungs symmetrical, equal chest wall rise, no retractions CV: RRR GI: non tender, soft, active BS, last BM 09/30 : Patient voiding without difficulty Extremities: no peripheral edema, wiggles toes and toes pink and well perfused Musculoskeletal: 5/5 calibration technician strength on right, 3/5 calibration technician strength on left FEN: on TPN Heme/ID: [...] AMS & delirium - numerous evaluations by C WEB DEVELOPER with trials of PO - now s/p modified barium swallow x2 which indicates aspiration - continue NPO - C WEB DEVELOPER reports that patient working on tongue strength [...] . - C-collar at all times, use HARDWOOD FLOOR SANDER when OOB - Follow-up with Neurosurgery on 10/21 with repeat X-rays #Blunt abdominal trauma #Splenic laceration S/p laparotomies x2. Fascia closed 09/02 Wound vac removed by patient, but wound remains duke n/dry/intact. Sweet removed 09/17. #Left hemothorax Chest tube placed [...] PDTAttending: I saw and examined Diogenes Temple ([id number]) with Christian Kelley PA-C on morning rounds 09/30 and agree with the assessment and plan as outlined in this note and participated in the planning of care. Mentally slower this morning, but non-focal. Received haldol overnight for sleep. Repeat head CT was unchanged so suspect etiology of slowed responsiveness is the antipsychotic dose . C WEB DEVELOPER believes that, once collar off, may be able to take PO more effectively and thus will hold off on surgical feeding access. TPN is a temporary solution and if patient remains kaye nable will trial DHT tomorrow. Working with psychiatry for medication recommendations. Fidelina Shields MD Diabetes Educator Division of Trauma, Critical Care and Acute Care Surgery Office: [phone] Pager: [phone] July Harp PA-C - 09/30/2017 8:23 AM PDTBrief Neurosurgery Wound Check: Wound is dry, without erythema, not fluctuant. No acute swelling. Nylon in place. Will plan to follow peripherally for wound checks and remove nylons on 10/09. JULY HARP PA-C [facility] [address] [place] [address] Christian Begum PA-C - 09/29/2017 7:15 AM [...] and EOMs intact to exam Neck: in [place] collar Respiratory: CTA bilaterally, lungs symmetrical, equal [...] AMS & delirium - numerous evaluations by C WEB DEVELOPER with trials of PO - now s/p [...] . - C-collar at all times, use HARDWOOD FLOOR SANDER when OOB - Follow-up with Neurosurgery on [...] PDTAttending: I saw and examined Diogenes Temple ([id number]) with Christian Kelley PA-C on morning rounds 09/29 and agree with the assessment and plan as outlined in this note and participated in the planning of care. Late entry for 09/29/17. Persistent alterations in conscious and dysphagia. Hopefully with ongoing speech therapy a nd when clear to take c-collar off, will improve ability to take PO. While TPN is not an opt imal half-way strategy, would prefer not to place surgical feeding tube if possible given r elatively recent damage control laparotomy and high risk of Mr. Temple pulling it out. Have tried DHT several times and it seems to worsen delirium and he pulls it out frequently. Tit ration of haldol in conjunction with psychiatry. Fidelina Shields MD Diabetes Educator Division of Trauma, Critical Care and Acute Care Surgery Office: [phone] Pager: [phone] Christian Kelley PA-C - 09/28/2017 1:01 PM [...] he said, who, ariel? And then the VOCATIONAL REHABILITATION SUPERVISOR helped him make a call to her. [...] and EOMs intact to exam Neck: in [place] collar Respiratory: CTA bilaterally, lungs symmetrical, equal [...] very agitated today. - EKG today with [place] QTc calculated to be 428 - optimize [...] AMS & delirium - numerous evaluations by C WEB DEVELOPER with trials of PO - now s/p [...] . - C-collar at all times, use HARDWOOD FLOOR SANDER when OOB - Follow-up with Neurosurgery on 10/21 with repeat X-rays #Blunt abdominal trauma #Splenic laceration S/p laparotomies x2. Fascia closed 09/02 Wound vac removed by patient, but wound remains duke n/dry/intact. Sweet removed 09/17. #Left hemothorax Chest tube placed [...] more toda y. Chaz Hernandez MD, FACS Diabetes Educator, Trauma, Critical Care and Acute Care Surgery Chaz Hernandez MD - 09/28/2017 10:13 AM PDTTrauma Staff Seen and examined this AM with team. I have concerns abotu behaviour, as he is consistently threatening RN and ancillary staff, even attempting swings. Behavior seems worse at night. I would favor increasing night time Haldol dose, and following EKGs. Chaz Hernandez MD, FACS Diabetes Educator, Trauma, Critical Care and Acute Care Surgery [...] Dallin Bourgeois MD Neurosurgery PGY1 | Pager #[phone] Christian Begum PA-C - 09/27/2017 7:31 AM [...] able to have a linear conversation briefly C WEB DEVELOPER requesting repeat barium swallow Current meds: I [...] incision healing , suture c/d/I Neck: in HARDWOOD FLOOR SANDER Respiratory: unlabored on room air, lungs symmetrical, [...] AMS & delirium - numerous evaluations by C WEB DEVELOPER with trials of PO - now s/p [...] . - C-collar at all times, use HARDWOOD FLOOR SANDER when OOB - Follow-up with Neurosurgery on [...] cotinue TPN for now. EM CUNNINGHAM MD [facility] [address] [facility] [address] [place] [address] Christian Kelley PA-C - 09/26/2017 6:48 AM [...] posterior scalp crani incision c/d/I Neck: in [place] collar Respiratory: unlabored on room air CV: [...] AMS & delirium - numerous evaluations by C WEB DEVELOPER with trials of PO - now s/p [...] . - C-collar at all times, use HARDWOOD FLOOR SANDER when OOB - Follow-up with Neurosurgery on [...] started 09/21 Disposition: Continue acute [place] care CHRISTAIN KELLEY PA-C Associated attestation - Em Cunningham [...] Continue NPO and TPN. EM CUNNINGHAM MD [facility] [address] [facility] [address] [place] [address] Christian Kelley PA-C - 09/25/2017 7:49 AM [...] HEENT: EOMs intact to exam Neck: in HARDWOOD FLOOR SANDER brace Respiratory: unlabored on room air CV: [...] AMS & delirium - numerous evaluations by C WEB DEVELOPER with trials of PO - now s/p [...] . - C-collar at all times, use HARDWOOD FLOOR SANDER when OOB - Follow-up with Neurosurgery on 10/21 with repeat X-rays #Blunt abdominal trauma #Splenic laceration S/p laparotomies x2. Fascia closed 09/02 Wound vac removed by patient, but wound remains duke n/dry/intact. Sweet removed 09/17. #Left hemothorax Chest tube placed [...] LFTS wnl. Continue TPN. EM CUNNINGHAM MD [facility] [address] [facility] [address] [place] [address] Christian Kelley PA-C - 09/24/2017 11:07 AM [...] with agitation Having difficulty swallowing again - C WEB DEVELOPER to re-eval and obtain barium swallow Current [...] HEENT: EOMs intact to exam Neck: in HARDWOOD FLOOR SANDER brace Respiratory: CTA bilaterally, lungs symmetrical, equal chest wall rise, no retractions CV: RRR GI: non distended, last BM 09/23 : good urine output Extremities: SCD's in place, no peripheral edema, wiggles toes and toes pink and well perfu sed Musculoskeletal: 5/5 strength in bilateral calibration technician (but with slightly weaker on left) , [...] PRN seroquel dose QHS for insomnia/restlessness at [facility] - Haldol 5mg q12hr prn [...] likely 2/2 AMS & delirium - Failed C WEB DEVELOPER eval 09/19 & 09/20, made NPO & dobhoff reinserted 09/21 but pulled overnight - Per C WEB DEVELOPER on 09/21, ok for therapeutic pureed with [...] . - C-collar at all times, use HARDWOOD FLOOR SANDER when OOB - Follow-up with Neurosurgery on [...] Start abx for dehiscence. EM CUNNINGHAM MD [place] [id number] [place] [address] Ginette Campos PA-C - 09/24/2017 9:31 AM [...] 4 extremities Unable to assess drift. Motor: Communication Engineer Bicep Tricep Delt R 5 5 [...] further questions or concerns. Ginette Campos PA-C [facility] [address] [place] [address] [facility] Atkins stephanie Cleary AGACNP - 09/23/2017 6:32 AM PDT Trauma Acute Care - Progress Note Name: DIOEGNES TEMPLE HPI: Diogenes Temple is a67 y.o. [...] hiscence, draining minimal serosang fluid Neck: in HARDWOOD FLOOR SANDER brace Respiratory: unlabored on room air CV: [...] PRN seroquel dose QHS for insomnia/restlessness at [facility] - Repeat ECG 09/22 with [...] likely 2/2 AMS & delirium - Failed C WEB DEVELOPER eval 09/19 & 09/20, made NPO & dobhoff reinserted 09/21 but pulled overnight - Per C WEB DEVELOPER on 09/21, ok for therapeutic pureed with [...] . - C-collar at all times, use HARDWOOD FLOOR SANDER when OOB - Follow-up with Neurosurgery on [...] dysphagia & delir ium improves Sherine Sarmiento, [facility] [place]g [phone] Dallin Deshpande MD - 09/22/2017 8:03 AM [...] Dallin Bourgeois MD Neurosurgery PGY1 | Pager #[phone] [facility] est[facility] - 09/22/2017 6:52 AM PDTFormatting of [...] 24hr events: - Therapeutic purees initiated by C WEB DEVELOPER yesterday - Trickle feeds via Dobbhoff, pt pulled Dobbhoff yesterday evening- not replaced - BLAST FURNACE KEEPER called around 2130 for new left facial droop (see separate notes), CT revealed increa se in SDH from 12 to 17mm with no change in midline shift. [facility]am [facility] - NSG and stroke [...] sluggish. Slight left facial droop Neck: in [place] collar Respiratory: unlabored on room air CV: [...] PRN seroquel dose QHS for insomnia/restlessness at [facility]- - Repeat ECG 09/22 with Q Tc WNL. - Haldol 5mg q12hr prn for severe agitation #Substance abuse, concern for Alcohol withdrawal - CIWA discontinued 09/08, not scoring. - Thiamine & folate started 09/21 #Dysphagia, risk for aspiration #Protein calorie malnutirtion - likely 2/2 AMS & delirium - Failed C WEB DEVELOPER eval 09/19 & 09/20, made NPO & dobhoff reinserted 09/21 but pulled overnight - Per C WEB DEVELOPER on 09/21, ok for therapeutic pureed with [...] . - C-collar at all times, use HARDWOOD FLOOR SANDER when OOB - Follow-up with Neurosurgery on [...] when dysphagia & delirium improves Sherine Sarmiento, [facility] Pg [phone] Associated attestation - Nubia Nieto MD,MPH - [...] Care & Acute Care Surgery [facility] [phone] Sami Black Merle - 09/21/2017 10:25 PM [...] in the morning. Plan: -neuro checks; page [phone] for any decline in neurological examination -pain control -Hard C collar at all times and place HARDWOOD FLOOR SANDER prior to mobilizing OOB. Anticipated duration of Collar/HARDWOOD FLOOR SANDER is 12 weeks -repeat CT head for any new decline in neurological exam and page [phone] -NPO at midnight tonight -please hold tonight's planned dose of Lovenox -further recommendations in the morning Sami Black MD, PhD PGY-3 Resident Neurosurgery [id number] signed by Sami Black at 09/21/2017 10:50 PM [facility] - 09/21/2017 7:10 AM PDTFormatting of this [...] Provena placem ent 24hr events: - Failed C WEB DEVELOPER eval again yest morning, continued NPO - [...] reactive. Dobbhoff tube in place Neck: in [place] collar Respiratory: unlabored on room air CV: [...] likely 2/2 AMS & delirium - Failed C WEB DEVELOPER eval 09/19 & 09/20, made NPO & dobhoff reinserted yesterday - Trickle feeds started this am at 20ml/hr, increase very slowly by 10ml every 12 hrs to go al of 75 due to hx of mesenteric hematomas and previous inability to tolerate TF - Per C WEB DEVELOPER today, ok for therapeutic pureed with nectar [...] . - C-collar at all times, use HARDWOOD FLOOR SANDER when OOB - Follow-up with Neurosurgery on 10/21 with repeat X-rays #Blunt abdominal trauma #Splenic laceration S/p laparotomies x2. Fascia closed 09/02 Wound vac removed by patient, but wound remains duke n/dry/intact. Sweet removed 09/17. #Left hemothorax Chest tube placed [...] & delirium i [place]pro[place] Pg [phone] Associated attestation - Fidelina Shields MD - 09/21/2017 9:36 PM PDTAttending: I saw and examined Diogenes Temple ([id number]) with KESHAWN Alexander on mornin g rounds [...] enough to re-trial PO. Fidelina Shields MD Diabetes Educator Division of Trauma, Critical Care and Acute Care Surgery Office: [phone] Pager: [phone] Sherine Sarmiento AGACNP - 09/20/2017 7:41 AM [...] haldol given yesterday afternoon for agitation - C WEB DEVELOPER paged to re-eval in afternoon after concern for aspiration, made NPO by C WEB DEVELOPER - DARNELL SOLANO Current meds: I have [...] right pupil 3 and reactive Neck: in [place] collar Respiratory: unlabored on room air CV: [...] thick/pureed d iet. Made NPO yesterday by C WEB DEVELOPER after concern for aspiration. This is likely 2/2 waxing & wan ing delirium & AMS - C WEB DEVELOPER re-eval today recommend continue NPO d/t overt clinical signs of aspiration - Place Dobbhoff tube and restart feeds, slowly progress to goal - Stop TPN when tolerating tube feeds - C WEB DEVELOPER will follow closely, as his AMS improves [...] . - C-collar at all times, use HARDWOOD FLOOR SANDER when OOB - Follow-up with Neurosurgery on [...] & delirium i mproves KESHAWN Martin Pg [phone] Associated attestation - Fidelina Shields MD - 09/20/2017 9:34 PM PDTAttending: I saw and examined Diogenes Temple ([id number]) with KESHAWN Alexander on mornin g rounds [...] dispo planning when able. Fidelina Shields MD Diabetes Educator Division of Trauma, Critical Care and Acute Care Surgery Office: [phone] Pager: [phone] Mary Medrano MD,MPH - 09/19/2017 6:22 AM [...] downgraded from thin to thick liquids by C WEB DEVELOPER Current meds: I have independently reviewed current [...] intact, small Right fluctuant pseudomeningocele Neck: in [place] collar Respiratory: unlabored on room air CV: [...] DHT on09/19. - Cleared for diet by C WEB DEVELOPER, tolerating purees, 749 Calories yesterday - Restart Calorie count: if taking >700 again will be OK for full po diet, otherwise replac e DHT and restart TF - Stop TPN tomorrow regardless - Still considering repeat CT abdomen/pelvis #Dysphagia DHTreplaced overnight 09/07. TF held due to emesis and possible ileus, aspiration risk. DH T pulled overnight on 09/18 - C WEB DEVELOPER as able Resolved or chronic issues/Plan: #BIG 3 TBI #Right synthetic cranioplasty Neurosurgery consulted. Non-operative management. Last head CT 09/12 stable. Expected pseudo meningocele. Left-sided deficits consistent with baseline. - Stat head CT for any neurologic decline #C7 bilateral lamina fractures #C6-T2 spinous process fractures Neurosurgery consulted. Non-operative management. Upright cervical X-rays completed on 09/14 . - C-collar at all times, use HARDWOOD FLOOR SANDER when OOB - Follow-up with Neurosurgery on 10/21 with repeat X-rays #Blunt abdominal trauma #Splenic laceration S/p laparotomies x2. Fascia closed 09/02 Wound vac removed by patient, but wound remains duke n/dry/intact. Sweet removed 09/17. #Left hemothorax Chest tube placed [...] M.D., M.P.H. Neurological Surgery Resident PGY-1 Pager: [phone] Associated attestation - Fidelina Shields MD - 09/19/2017 1:36 PM PDTAttending: I saw and examined Diogenes Temple ([id number]) with the residents on morning rounds 09/19/17 and agree with the assessment and plan as outlined in this note and participated in the plan aashish of care. Improving po intake, will titrate TPN. Plan to DC TPN tomorrow and transition to PO vs PO + TF depending on calorie counts. Once of restraints will begin looking for placement. Fidelina Shields MD Diabetes Educator Division of Trauma, Critical Care and Acute Care Surgery Office: [phone] Pager: [phone] Mary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 | | | [...] [facility] | [address] | [place] [address] | | | NATALEE [place] | VILMA [...] | + + + + + | [facility] | [address] | [place] [address] | | | SERVICES, CORE | PARK [...] [facility] | [address] | [place] [address] | | | SERVICES, CORE | PARK [...] | + + + + + | [facility] | [address] | [place] [address] | | | SERVICES, CORE | VILMA [...] [facility] | [address] | [place] [address] | | | SERVICES, CORE | VILMA [...] [facility] | [address] | [place] [address] | | | SERVICES, CORE | VILMA [...] [facility] | [address] | [place] [address] | | | SERVICES, CORE | VILMA [...] [facility] | [address] | [place] [address] | | | SERVICES, CORE | PARK [...] | + + + + + | [facility] | [address] | [place] [address] | | | SERVICES, CORE | VILMA [...] | + + + + + | [facility] | [address] | [place] [address] | | | SERVICES, CORE | VILMA [...] | | | LABORATORY | | | NIGERIAN | | | SERVICES, | | | [...] | + + + + + | [facility] | [address] [address] | [place] [address] | | | SERVICES, CORE | PARK [...] | | | correct patient, procedure, equipment, application support manager and site/side | | | [...] | area Basilic vein. Catheter lot number: [id number] with a length of 55 | | [...] At | + + + | EXAM: NM CHEST 1 VIEW HISTORY: PICC placed-pt ready. [...] Interface - 10/24/2017 3:43 PM PDT EXAM: NM CHEST 1 | | VIEW HISTORY: PICC [...] [facility] | [address] | [place], [place] | | | [facility] | [address] | [address] | | | TESTS | | | [...] | | Surgical Critical Care, PGY7 Pager: [phone] | | + + + CAPILLARY BLOOD [...] [facility] | [address] | [place], [place] | | | [facility] | [address] | [address] | | | TESTS | | | [...] | [facility] | [address] | [place], [place] | | | [facility] | [address] | [address] | | | TESTS | | | [...] | | | LABORATORY | | | NIGERIAN | | | SERVICES, | | | [...] [facility] | [address] | [place] [address] | | | SERVICES, CORE | PARK [...] [facility] | [address] | [place] [address] | | | ELIN, NATALEE | VILMA [...] [facility] | [address] | [place], [place] | | | [facility] | [address] | [address] | | | TESTS | | | [...] | + + + + + | [facility] | [address] | [place] [address] | | | SERVICES, CORE | PARK [...] | | | LABORATORY | | | NIGERIAN | | | SERVICES, | | | [...] | + + + + + | [facility] | [address] | [place] [address] | | | NATALEE WORTHINGTON | VILMA [...] DEPT OF | [address] | [place], [place] | | | CARDIOLOGY | [address] | [address] | | + + + + + IR GASTROSTOMY TUBE EXCHANGE (10/22/2017 2:42 PM PDT) + + | Specimen | + + | | + + + + + | Narrative | Performed At | + + + | Procedure: Gastrostomy tube exchange Primary attending | [facility] | | dj instructor: Shade Nix M.D. Preoperative diagnosis: | RADIOLOGY [...] Procedure: | | Gastrostomy tube exchangePrimary attending dj instructor: Shade Nix, | | BrynPreoperative diagnosis: Malfunctioning [...] | | + +---------+ + + | [facility] | | | | | [facility] US | | | | + [...] + + + | ANA LILIA-HALIMA | 448 | ms | [facility] [...] | + + + + + | [facility] | [address] | [place], [place] | | | CARDIOLOGY | [address] | [address] | | + + + + + CT ABDOMEN AND PELVIS W IV CONTRAST (10/22/2017 3:56 AM PDT) + + | Specimen | + + | | + + + + + | Narrative | Performed At | + + + | EXAM: CT of the abdomen and pelvis WITH intravenous contrast. | [facility] | | HISTORY: Evaluate for gastrostomy tube [...] [facility] | [address] | [place] [address] | | | NATALEE WORTHINGTON | VILMA [...] | | | LABORATORY | | | NIGERIAN | | | SERVICES, | | | [...] | + + + + + | [facility] | [address] | [place] [address] | | | SERVICES, NATALEE | VILMA [...] + + | [facility] | [address] | [place], [place] | | | CARDIOLOGY | [address] | [address] | | + + + + + [...] | | | LABORATORY | | | NIGERIAN | | | SERVICES, | | | [...] | + + + + + | [facility] | [address] | [place] [address] | | | SERVICES, CORE | VILMA [...] | + + + + + | [facility] | [address] | [place] [address] | | | SERVICES, CORE | PARK [...] [facility] | [address] | [place], [place] | | | CARDIOLOGY | [address] | [address] | | + + + + + [...] | + + + + + | [facility] | [address] | [place] [address] | | | NATALEE WORTHINGTON | VILMA [...] | | | LABORATORY | | | NIGERIAN | | | SERVICES, | | | [...] | + + + + + | [facility] | [address] | [place] [address] | | | SERVICES, CORE | VILMA [...] DEPT OF | [address] | [place], [place] | | | CARDIOLOGY | [address] | [address] | | + + + + + [...] | | | LABORATORY | | | NIGERIAN | | | SERVICES, | | | [...] | + + + + + | [facility] | [address] | [place] [address] | | | SERVICES, CORE | VILMA [...] | + + + + + | [facility] | [address] | [place] [address] | | | SERVICES, CORE | VILMA [...] DEPT OF | [address] | [place], [place] | | | CARDIOLOGY | [address] | [address] | | + + + + + [...] | | | LABORATORY | | | NIGERIAN | | | SERVICES, | | | [...] | + + + + + | [facility] | [address] | [place] [address] | | | SERVICES, CORE | PARK [...] | + + + + + | [facility] | [address] | [place] [address] | | | NATALEE WORTHINGTON | VILMA [...] Note | + + | Service Account, TLM Com In Interface - 10/15/2017 3:58 PM PDT [...] DEPT OF | [address] | [place], [place] | | | CARDIOLOGY | [address] | [address] | | + + + + + [...] [facility] | [address] | [place], [place] | | | [facility] | [facility] | [address] | | | TESTS | | | [...] | + + + + + | [facility] | [address] | [place] [address] | | | NATALEE WORTHINGTON | VILMA [...] (H) | 70 - 99 mg/dL | [facility] - | | | GLUCOSE, | [...] [facility] | [address] | [place], [place] | | | [facility] | [address] | [address] | | | TESTS | | | [...] DEPT OF | [address] | [place], [place] | | | CARDIOLOGY | [address] | [address] | | + + + + + [...] | + + + + + | [facility] | [address] | [place] [address] | | | SERVICES, CORE | PARK [...] | | | LABORATORY | | | NIGERIAN | | | SERVICES, | | | [...] | + + + + + | [facility] | [address] | [place] [address] | | | SERVICES, CORE | [address] | | | + + + + + MAGNESIUM, PLASMA (10/14/2017 4:53 AM PDT) + +-------+ + + + | Component | Value | Ref Range | Performed | Pathologist | | | | | At | Signature | + +-------+ + + + | MAGNESIUM,P | 1.7 | 1.6 - 2.6 mg/dL | [facility] | | | LASMA | | | [...] [facility] | [address] | [place] [address] | | | ELIN, NATALEE | VILMA [...] [facility] | [address] | [place], [place] | | | [facility] | [address] | [address] | | | TESTS | | | [...] [facility] | [address] | [place], [place] | | | [facility] | [address] | [address] | | | TESTS | | | [...] [facility] | [address] | [place] [address] | | | NATALEE WORTHINGTON | VILMA [...] | | | LABORATORY | | | NIGERIAN | | | SERVICES, | | | [...] | + + + + + | [facility] | [address] | [place] [address] | | | SERVICES, NATALEE | [address] | | | + + + + + OPERATION RECORD (10/12/2017 8:50 PM PDT) + + | Procedure Note | + + | Pilar Cotto MD - 10/12/2017 8:50 PM PDT Date of Service: 10/12/2017 | | Attending Surgeon: Chaz Hernandez MD Multimedia Teacher(s): Randell Dixon M.D., | | fellow. George [...] the case. Pilar Cotto, | | Edi Hernandez, MDKMW/MODLDD: 10/12/2017 19:50:06DT: 10/12/2017 20:50:54Job #: | | [id number] | + + X-RAY PORTABLE CHEST 1 VIEW (10/12/2017 7:50 PM PDT) + + | Specimen | + + | | + + + + + | Narrative | Performed At | + + + | EXAM: NM CHEST 1 VIEW HISTORY: Evaluate endotracheal tube [...] Service Account, Kostas Res In Interface - 10/13/2017 9:04 AM PDT EXAM: NM CHEST 1 | | VIEW HISTORY: Evaluate [...] [facility] | [address] | [place], [place] | | | [facility] | [address] | [address] | | | TESTS | | | [...] | + + + + + | [facility] | [address] | [place] [address] | | | SERVICES, CORE | VILMA [...] | | | LABORATORY | | | NIGERIAN | | | SERVICES, | | | [...] | + + + + + | [facility] | [address] | [place] [address] | | | SERVICES, CORE [...] | + + + + + | [facility] | [address] | [place] [address] | | | SERVICES, CORE | [address] | | | + + + + + 12 LEAD ECG (10/11/2017 12:50 PM PDT) + + + + + + | Component | Value | Ref Range | Performed | Pathologist | | | | | At | Signature | + + + + + + | VENTRICULAR | 119 | bpm | [facility] | | [...] DEPT OF | [address] | [place], [place] | | | CARDIOLOGY | [address] | [address] | | + + + + + [...] DEPT OF | [address] | [place], [place] | | | CARDIOLOGY | [address] | [address] | | + + + + + [...] [facility] | [address] | [place] [address] | | | ELIN, NATALEE | VILMA [...] | + + + + + | [facility] | [address] | [place] [address] | | | SERVICES, CORE | VILMA [...] | | | LABORATORY | | | NIGERIAN | | | SERVICES, | | | [...] | + + + + + | [facility] | [address] | [place] [address] | | | SERVICES, [facility] | [address] | | | + + + + + PROCEDURE NOTE (10/10/2017 10:00 PM PDT) + + + | Narrative | Performed At | + + + | Darius Link MD 10/12/2017 11:11 AM OPERATIVE REPORT | | | DATE OF OPERATION: 10/10/2017 ATTENDING SURGEON: 1. Dr. Hernandez | | | TACK CLEANER: 1. Darius Link MD INDICATIONS: Dysphagia | | | and need for terminal manager nutrition access PREOPERATIVE DIAGNOSIS: | | | 1.Dysphagia and need for terminal manager nutrition access | | | POSTOPERATIVE DIAGNOSIS: [...] | | | [place] [id number] Chief Resident | | | Neurosurgery | [...] | + + + + + | [facility] | [address] | [place] [address] | | | NATALEE WORTHINGTON | VILMA [...] | | | LABORATORY | | | NIGERIAN | | | SERVICES, | | | [...] | + + + + + | [facility] | [address] | [place] [address] | | | SERVICES, CORE | VILMA [...] | + + + + + | [facility] | [address] | [place] [address] | | | SERVICES, NATALEE | [address] | | | + + + + + OPERATION RECORD (10/10/2017 12:40 PM PDT) + + | Procedure Note | + + | Magdiel Stock MD - 10/10/2017 12:40 PM PDT Date of Service: 10/10/2017 Attending | | Surgeon: Magdiel Stock MD Multimedia Teacher(s): Cecilia Jackson, | | . Preoperative Diagnoses: [...] This is a 67-year-old male. Please see [facility] for full details. He | [...] | the note for this encounter.Sonal Nunez MD[address] [facility] | | [place] [phone] Orina, MDFAH/MODDIOND: | | 10/10/2017 11:52:15DT: 10/10/2017 12:40:41Job #: [id number] | | | | | |I was present for the critical portions of the procedure as described in the note for this encounter. | | | |Magdiel Stock MD | | | |Magdiel Stock MD | |[address] | |[address] [facility] | |[facility] | |[place] [address] | |[phone] | | | | | |Magdiel Stokc MD | |JAYLAN/DUC | | | | | | /[id number] | + + X-RAY ABDOMEN 1 VIEW [...] | + + + + + | [facility] - | [address] | [place] [address] | | | [place] | | | | + + + [...] + | [facility] - | [address] | [place] [address] | | | [place] | | | [...] + | [facility] | [address] | [place] [address] | | | [place] | | | [...] + | [facility] | [address] | [place] [address] | | | [place] | | | [...] + | [facility] | [address] | [place] [address] | | | [place] | | | [...] Gram Stain: No squamous epithelial cells | [facility] | | Many polymorphonuclear cells No organisms seen | | + + + + + + + + | Performing | Address | City/State/Zipcode | Phone Number | | Organization | | | | + + + + + | [facility] | [address] | [place] [address] | | | [place] | | | [...] detected | [facility] - | | | [place] | + + + + + + + + | Performing | Address | City/State/Zipcode | Phone Number | | Organization | | | | + + + + + | [facility] | [address] | [place] [address] | | | [place] | | | [...] Gram Stain: No squamous epithelial cells | [facility] | | Few polymorphonuclear cells No organisms seen | | + + + + + + + + | Performing | Address | City/State/Zipcode | Phone Number | | Organization | | | | + + + + + | [facility] | [address] | [place] [address] | | | [facility] | | | | + [...] | | cells No organisms seen | [facility] | + + + + + + + + | Performing | Address | City/State/Zipcode | Phone Number | | Organization | | | | + + + + + | [facility] - | [address] | [place] [address] | | | [place] | | | [...] | + + + + + | [facility] | [address] | [place] [address] | | | [place] | | | [...] Gram Stain: No squamous epithelial cells | [place] | | Moderate polymorphonuclear cells No organisms seen | | + + + + + + + + | Performing | Address | City/State/Zipcode | Phone Number | | Organization | | | | + + + + + | [facility] | [address] | [place] [address] | | | [place] | | | | + + + [...] + | [facility] | [address] | [place] [address] | | | [place] | | | [...] + | [facility] | [address] | [place] [address] | | | [place] | | | [...] Gram Stain: No squamous epithelial cells | [place] | | Moderate polymorphonuclear cells No organisms seen | | + + + + + + + + | Performing | Address | City/State/Zipcode | Phone Number | | Organization | | | | + + + + + | [facility] | [address] | [place] [address] | | | [place] | | | [...] detected | [facility] - | | | [place] | + + + + + + + + | Performing | Address | City/State/Zipcode | Phone Number | | Organization | | | | + + + + + | [facility] | [address] | [place] [address] | | | [place] | | | | + + + [...] | + + + + + | [facility] | [address] | [place] [address] | | | [place] | | | | + + + [...] Gram Stain: No squamous epithelial cells | [place] | | Moderate polymorphonuclear cells No organisms seen | | + + + + + + + + | Performing | Address | City/State/Zipcode | Phone Number | | Organization | | | | + + + + + | [facility] - | [address] | [place] [address] | | | [place] | | | | + + + [...] | + + + + + | [facility] - | [address] | [place] [address] | | | [place] | | | | + + + [...] [facility] | [address] | [place] [address] | | | SERVICES, CORE | PARK [...] | + + + + + | [facility] | [address] | [place] [address] | | | SERVICES, CORE | PARK [...] [facility] | [address] | [place] [address] | | | SERVICES, CORE | PARK [...] | | | LABORATORY | | | NIGERIAN | | | SERVICES, | | | [...] the MDRD equation recommended by the | [facility] | | National Kidney Disease Education [...] | + + + + + | [facility] | [address] | [place] [address] | | | NATALEE WORTHINGTON | VILMA [...] DEPT OF | [address] | [place], [place] | | | CARDIOLOGY | [address] | [address] | | + + + + + [...] + + + + | PRODUCT | [id number] | | [facility] | | | UNIT [...] + + + + | EXPIRATION | [id number] | | [facility] | | | DATE [...] + + + + | BLOOD | [id number] | | [facility] | | | PRODUCT [...] | + + + + + | [facility] | [address] | [place] [address] | | | SERVICES, | [address] [...] + + + + | PRODUCT | [id number] | | [facility] | | | UNIT [...] + + + + | EXPIRATION | [id number] | | [facility] | | | DATE [...] + + + + | BLOOD | [id number] | | [facility] | | | PRODUCT [...] [facility] | [address] | [place] [address] | | | SERVICES, | [address] [...] [facility] | [address] | [place] [address] | | | SERVICES, | [address] [...] | + + + + + | [facility] | [address] | [place] [address] | | | SERVICES, | [address] [...] [facility] | [address] | [place] [address] | | | SERVICES, | [address] [...] valves (2.5 - 3.5) INR APTT | [facility], CORE | | Therapeutic Range: (75 - 120) sec | | | Heparin levels of 0.35 - 0.7 U/mL | | + + + + + + + + | Performing | Address | City/State/Zipcode | Phone Number | | Organization | | | | + + + + + | [facility] | [address] | [place] [address] | | | [facility] | [address] | [...] + | [facility] | [address] | [place], [place] | | | CARDIOLOGY | [address] | [address] | | + + + + + [...] Note | + + | Service Account, MemoryBistro Res In Interface - 10/08/2017 10:47 AM [...] | | + +---------+ + + | [facility] | | | | | [...] [facility] | [address] | [place], [place] | | | [place], [facility] | [address] | [address] | | | TESTS | | | [...] [facility] | [address] | [place] [address] | | | ELIN, NATALEE | PARK [...] [facility] | [address] | [place] [address] | | | SERVICES, CORE | [address] [...] | | | LABORATORY | | | NIGERIAN | | | SERVICES, | | | [...] the MDRD equation recommended by the | [facility] | | National Kidney Disease Education [...] | + + + + + | [facility] | [address] | [place] [address] | | | NATALEE WORTHINGTON | VILMA [...] [facility] | [address] | [place], [place] | | | [facility] | [address] | [address] | | | TESTS | | | [...] [facility] | [address] | [place], [place] | | | [facility] | [address] | [address] | | | TESTS | | | [...] [facility] | [address] | [place], [place] | | | [facility] | [address] | [address] | | | TESTS | | | [...] [facility] | [address] | [place], [place] | | | [facility] | [address] | [address] | | | TESTS | | | [...] + + + | [facility] | [address] | [place], [place] | | | [facility] | [address] | [address] | | | TESTS | | | [...] [facility] | [address] | [place] [address] | | | NATALEE WORTHINGTON | VILMA [...] | + + + + + | [facility] | [address] | [place] [address] | | | SERVICESNATALEE | [address] [...] | | | LABORATORY | | | NIGERIAN | | | SERVICES, | | | [...] | + + + + + | [facility] | [address] | [place] [address] | | | SERVICES, CORE | VILMA [...] [facility] | [address] | [place], [place] | | | [facility] | [address] | [address] | | | TESTS | | | [...] [facility] | [address] | [place] | | | [facility] | [address] | [address] | | | TESTS | | | [...] DEPT OF | [address] | [place], [place] | | | CARDIOLOGY | [address] | [address] | | + + + + + [...] [facility] | [address] | [place], [place] | | | [facility] [employer] | [facility] | [address] | | | TESTS | | | [...] | + + + + + | [facility] | [address] | [place] [address] | | | SERVICES, CORE | [address]ARK [...] [facility] | [address] | [place] [address] | | | ELIN, NATALEE | VILMA [...] | | | LABORATORY | | | NIGERIAN | | | SERVICES, | | | [...] | + + + + + | [facility] | [address] | [place] [address] | | | SERVICES, CORE | VILMA [...] [facility] | [address] | [place], [place] | | | [facility] | [address] | [address] | | | TESTS | | | [...] [facility] | [address] | [place], [place] | | | [facility] | [address] | [address] | | | TESTS | | | [...] + + + | [facility] | [address] | [place] | | | [facility] | [address] | [address] | | | TESTS | | | [...] [facility] | [address] | [place], [place] | | | [facility] | [address] | [address] | | | TESTS | | | [...] DEPT OF | [address] | [place], [place] | | | CARDIOLOGY | [address] | [address] | | + + + + + [...] | + + + + + | [facility] | [address] | [place] [address] | | | NATALEE WORTHINGTON | VILMA [...] | + + + + + | [facility] | [address] | [place] [address] | | | NATALEE WORTHINGTON | [address] [...] | | | LABORATORY | | | NIGERIAN | | | SERVICES, | | | [...] | + + + + + | [facility] | [address] | [place] [address] | | | SERVICES, CORE | PARK [...] (H) | 70 - 99 mg/dL | [facility] - | | | GLUCOSE, | [...] [facility] | [address] | [place], [place] | | | [facility] | [facility] | [address] | | | TESTS | | | [...] - [facility] | [address] | [place] | | | [facility] | [facility] | [address] | | | TESTS | | | [...] (H) | 70 - 99 mg/dL | [facility] - | | | GLUCOSE, | [...] [facility] | [address] | [place], [place] | | | [facility] | [address] | [address] | | | TESTS | | | [...] [facility] | [address] | [place] | | | [facility] [employer] | [facility] | [address] | | | TESTS | | | [...] - [facility] | [address] | [place], [place] | | | [facility] | [facility] | [address] | | | TESTS | | | [...] [facility] | [address] | [place] [address] | | | SERVICES, CORE | PARK [...] [facility] | [address] | [place] [address] | | | SERVICES, CORE | PARK [...] | | | LABORATORY | | | NIGERIAN | | | SERVICES, | | | [...] the MDRD equation recommended by the | [facility] | | National Kidney Disease Education [...] | + + + + + | [facility] | [address] | [place] [address] | | | NATALEE WORTHINGTON | PARK [...] - [facility] | [address] | [place] | | | [facility] | [address] | [address] | | | TESTS | | | [...] + + + | [facility] | [address] | [place], [place] | | | [facility] | [address] | [address] | | | TESTS | | | [...] [facility] | [address] | [place] [address] | | | SERVICES, CORE | PARK [...] by | | | | | | [address],500 | | | | | | Rogelio Pickard, [facility],[place] | | | | | | [phone] | | | | | | [phone]. | | | | | | Gui [...] [facility] | [address] | [place], [place] | | | [facility] | | [id number] | | + + + + + [...] | + + + + + | [facility] | [address] | [place] [address] | | | SERVICES, CORE | PARK [...] | + + + + + | [facility] | [address] | [place] [address] | | | SERVICES, CORE | VILMA [...] modified from | [facility] | | original rubber off's approved specifications. The performance | LABORATORY | | of the CARPENTER MATE HIV Combo test, with or without confirmation, was not | SERVICES, | | tested in pediatric patients less than 2 years of age. [facility] | SPECIAL IMM + [...] | + + + + + | [facility] | [address] | [place] [address] | | | SERVICES, SPECIAL | VILMA [...] [facility] | [address] | [place], [place] | | | [facility] | [address] | [address] | | | TESTS | | | [...] - [facility] | [address] | [place], [place] | | | [facility] | [address] | [address] | | | TESTS | | | [...] | + + + + + | [facility] | [address] | [place] [address] | | | NATALEE WORTHINGTON | VILMA [...] | + + + + + | [facility] | [address] | [place] [address] | | | SERVICES, CORE | VILMA [...] | | | LABORATORY | | | NIGERIAN | | | SERVICES, | | | [...] | + + + + + | [facility] | [address] | [place] [address] | | | SERVICES, CORE | VILMA [...] 96 | 70 - 99 mg/dL | [facility] - | | | GLUCOSE, | | [...] PICKETT | [address] | [place], [place] | | | [facility] | [address] | [address] | | | TESTS | | | [...] - [facility] | [address] | [place], [place] | | | [facility] | [address] | [address] | | | TESTS | | | [...] DEPT OF | [address] | [place], [place] | | | CARDIOLOGY | [address] | [address] | | + + + + + [...] At | + + + | EXAM: NM CHEST 1 VIEW HISTORY: Evaluate PICC placement [...] Note | + + | Service Account, TLM Com In Interface - 10/02/2017 2:07 PM PDT EXAM: NM CHEST 1 | | VIEW HISTORY: Evaluate [...] + | [facility] - [facility] | [address] | [place], [place] | | | [facility] | [address] | [address] | | | TESTS | | | | + + + + + X-RAY PORTABLE CHEST 1 VIEW (10/02/2017 8:56 AM PDT) + + | Specimen | + + | | + + + + + | Narrative | Performed At | + + + | EXAM: NM CHEST 1 VIEW HISTORY: new leukocytosis, eval [...] Interface - 10/02/2017 10:27 AM PDT EXAM: NM CHEST 1 | | VIEW HISTORY: new [...] PICKETT | [address] | [place], [place] | | | [facility] GE[facility]O [facility] | [address] | [address] | | | TESTS | | | [...] | + + + + + | [facility] | [address] | [place] [address] | | | SERVICES, CORE | [address] | | | + + + + + MAGNESIUM, PLASMA (10/02/2017 5:12 AM PDT) + +-------+ + + + | Component | Value | Ref Range | Performed | Pathologist | | | | | At | Signature | + +-------+ + + + | MAGNESIUM,P | 2.1 | 1.6 - 2.6 mg/dL | [facility] | | | LASMA | | | [...] [facility] | [address] | [place] [address] | | | NATALEE WORTHINGTON | VILMA [...] | | | LABORATORY | | | NIGERIAN | | | SERVICES, | | | [...] | + + + + + | [facility] | [address] | [place] [address] | | | SERVICES, CORE | VILMA [...] MARQUAM | [address] | [place], [place] | | | [facility] | [address] | [address] | | | TESTS | | | [...] [facility] | [address] | [place], [place] | | | [facility] | [address] | [address] | | | TESTS | | | [...] Note | + + | Service Account, MemoryBistro Res In Interface - 10/01/2017 2:15 PM [...] [facility] | [address] | [place], [place] | | | [facility] | [address] | [address] | | | TESTS | | | [...] Note | + + | Service Account, MemoryBistro Res In Interface - 10/01/2017 11:34 AM [...] [facility] | [address] | [place], [place] | | | [facility] | [address] | [address] | | | TESTS | | | [...] | + + + + + | [facility] | [address] | [place] [address] | | | SERVICES, CORE | [address] | | | + + + + + MAGNESIUM, PLASMA (10/01/2017 5:25 AM PDT) + +-------+ + + + | Component | Value | Ref Range | Performed | Pathologist | | | | | At | Signature | + +-------+ + + + | MAGNESIUM,P | 2.0 | 1.6 - 2.6 mg/dL | [facility] | | | LASMA | | | [...] [facility] | [address] | [place] [address] | | | SERVICES, NATALEE | VILMA [...] | | | LABORATORY | | | NIGERIAN | | | SERVICES, | | | [...] | + + + + + | [facility] | [address] | [place] [address] | | | SERVICES, NATALEE | VILMA [...] MARKHRIS[facility] | [address] | [place], [place] | | | [facility] | [facility] | [address] | | | TESTS | | | [...] (H) | 70 - 99 mg/dL | [facility] - | | | GLUCOSE, | [...] + + + | [facility] | [address] | [place], [place] | | | [facility] | [address] | [address] | | | TESTS | | | [...] + + + + | [facility] | 481 | ms | [facility] [...] DEPT OF | [address] | [place], [place] | | | CARDIOLOGY | [address] | [address] | | + + + + + [...] [facility] | [address] | [place], [place] | | | [facility] | [address] | [address] | | | TESTS | | | [...] [facility] | [address] | [place], [place] | | | [facility] | [address] | [address] | | | TESTS | | | [...] | + + + + + | [facility] | [address] | [place] [address] | | | SERVICES, NATALEE [...] | + + + + + | [facility] | [address] | [place] [address] | | | SERVICES, CORE | VILMA [...] | | | LABORATORY | | | NIGERIAN | | | SERVICES, | | | [...] | + + + + + | [facility] | [address] | [place] [address] | | | SERVICES, CORE | VILMA [...] (H) | 70 - 99 mg/dL | [facility] - | | | GLUCOSE, | [...] P[facility]T | [address] | [place], [place] | | | [facility] | [address] | [address] | | | TESTS | | | [...] MARQU[facility] | [address] | [place] | | | [facility] | [address] | [address] | | | TESTS | | | [...] RAP[facility]EL[facility] | [address] | [place], [place] | | | [facility] | [address] | [address] | | | TESTS | | | [...] DEPT OF | [address] | [place], [place] | | | CARDIOLOGY | [address] | [address] | | + + + + + [...] MAR[facility] | [address] | [place] | | | [place], POINT [facility]ARE | [address] | [address] | | | TESTS | | | [...] [facility] | [address] | [place] [address] | | | ELIN, NATALEE | VILMA [...] | | | LABORATORY | | | NIGERIAN | | | SERVICES, | | | [...] | + + + + + | [facility] | [address] | [place] [address] | | | SERVICES, CORE | VILMA [...] [facility] | [address] | [place] [address] | | | NATALEE WORTHINGTON | VILMA [...] MARQU[facility] | [address] | [place], [place] | | | [facility] | [address] | [address] | | | TESTS | | | [...] P[facility]ETT | [address] | [place] | | | [facility] | [address] | [address] | | | TESTS | | | [...] MAR[facility] | [address] | [place], [place] | | | [facility] | [address] | [address] | | | TESTS | | | [...] DEPT OF | [address] | [place], [place] | | | CARDIOLOGY | [address] | [address] | | + + + + + [...] [facility] | [address] | [place], [place] | | | [facility] | [address] | [address] | | | TESTS | | | [...] | + + + + + | [facility] | [address] | [place] [address] | | | SERVICES, CORE | [address] | | | + + + + + MAGNESIUM, PLASMA (09/28/2017 4:58 AM PDT) + +-------+ + + + | Component | Value | Ref Range | Performed | Pathologist | | | | | At | Signature | + +-------+ + + + | MAGNESIUM,P | 2.1 | 1.6 - 2.6 mg/dL | [facility] | | | LASMA | | [...] [facility] | [address] | [place] [address] | | | SERVICES, NATALEE | VILMA [...] | | | LABORATORY | | | NIGERIAN | | | SERVICES, | | | [...] | + + + + + | [facility] | [address] | [place] [address] | | | SERVICES, NATALEE | VILMA [...] + + | [facility] | [address] | [place], [place] | | | [facility] | [facility] | [address] | | | TESTS | | | [...] + + + | SELE[facility] | [address] | [place], [place] | | | [facility] | [address] | [address] | | | TESTS | | | [...] poorly cleared with dry swallows. Please see [facility] pathology report for full details | [...] [facility] | [address] | [place], [place] | | | [facility] | [address] | [address] | | | TESTS | | | [...] + + + | [facility] | [address] | [place] | | | [facility] | [address] | [address] | | | TESTS | | | [...] [facility] | [address] | [place] [address] | | | NATALEE WORTHINGTON | VILMA [...] | + + + + + | [facility] | [address] | [place] [address] | | | NATALEE WORTHINGTON | VILMA [...] | | | LABORATORY | | | NIGERIAN | | | SERVICES, | | | [...] | + + + + + | [facility] | [address] | [place] [address] | | | SERVICES, CORE | VILMA [...] [facility] | [address] | [place], [place] | | | [facility] | [address] | [address] | | | TESTS | | | [...] + | [facility] | [address] | [place] | | | [facility] | [facility] | [address] | | | TESTS | | | [...] DEPT OF | [address] | [place], [place] | | | CARDIOLOGY | [address] | [address] | | + + + + + [...] [facility] | [address] | [place] | | | [facility] | [address] | [address] | | | TESTS | | | [...] [facility] | [address] | [place], [place] | | | [facility] | [address] | [address] | | | TESTS | | | [...] + + + | SELE[facility] | [address] | [place], [place] | | | [facility] | [address] | [address] | | | TESTS | | | [...] [facility] | [address] | [place] [address] | | | NATALEE WORTHINGTON | VILMA [...] | + + + + + | [facility] | [address] | [place] [address] | | | SERVICES, NATALEE | PARK [...] | | | LABORATORY | | | NIGERIAN | | | SERVICES, | | | [...] | + + + + + | [facility] | [address] | [place] [address] | | | SERVICES, CORE | VILMA [...] MAR[facility] | [address] | [place] | | | [facility] | [address] | [address] | | | TESTS | | | [...] | + + + + + | [facility] | [address] | [place] [address] | | | NATALEE WORTHINGTON | VILMA [...] | + + + + + | [facility] | [address] | [place] [address] | | | NATALEE WORTHINGTON | VILMA [...] | | | LABORATORY | | | NIGERIAN | | | SERVICES, | | | [...] | + + + + + | [facility] | [address] | [place] [address] | | | SERVICES, CORE | PARK [...] DEPT OF | [address] | [place], [place] | | | CARDIOLOGY | [address] | [address] | | + + + + + [...] Note | + + | Service Account, TLM Com In Interface - 09/24/2017 4:09 PM PDT [...] [facility] | [address] | [place] [address] | | | SERVICES, NATALEE | VILMA [...] | | | LABORATORY | | | NIGERIAN | | | SERVICES, | | | [...] | + + + + + | [facility] | [address] | [place] [address] | | | SERVICES, CORE | VILMA [...] [facility] | [address] | [place] [address] | | | SERVICES, CORE | [address] [...] [facility] | [address] | [place] [address] | | | SERVICES, CORE | [address] [...] [facility] | [address] | [place] [address] | | | SERVICES, CORE | [address] [...] | | | LABORATORY | | | NIGERIAN | | | SERVICES, | | | [...] the MDRD equation recommended by the | [facility] | | National Kidney Disease Education [...] | + + + + + | [facility] | [address] | [place] [address] | | | SERVICES, CORE | VILMA [...] - [facility] | [address] | [place], [place] | | | [facility] | [facility] | [address] | | | TESTS | | | [...] [facility] | [address] | [place] | | | [facility] | [address] | [address] | | | TESTS | | | [...] [facility] | [address] | [place] [address] | | | NATALEE WORTHINGTON | VILMA [...] + + | [facility]TC-[facility]AMARIA DEL CARMEN | 445 | ms | [facility] [...] DEPT OF | [address] | [place], [place] | | | CARDIOLOGY | [address] | [address] | | + + + + + [...] [facility] | [address] | [place] [address] | | | ELIN, NATALEE | VILMA [...] | + + + + + | [facility] | [address] | [place] [address] | | | SERVICES, CORE | VILMA [...] | | | LABORATORY | | | NIGERIAN | | | SERVICES, | | | [...] | + + + + + | [facility] | [address] | [place] [address] | | | SERVICES, CORE | VILMA [...] (H) | 70 - 99 mg/dL | [facility] - | | | GLUCOSE, | [...] [facility] | [address] | [place] | | | [facility] | [address] | [address] | | | TESTS | | | [...] | + + + + + | [facility] | [address] | [place] [address] | | | SERVICES, CORE | [address]ARK [...] [facility] | [address] | [place] [address] | | | NATALEE WORTHINGTON | PARK [...] | | | LABORATORY | | | NIGERIAN | | | SERVICES, | | | [...] | + + + + + | [facility] | [address] | [place] [address] | | | SERVICES, NATALEE | VILMA [...] Note | + + | Service Account, MemoryBistro Res In Interface - 09/20/2017 7:50 PM [...] Note | + + | Service Account, MemoryBistro Res In Interface - 09/20/2017 6:25 PM [...] Note | + + | Service Account, MemoryBistro Res In Interface - 09/20/2017 6:26 PM [...] DEPT OF | [address] | [place], [place] | | | CARDIOLOGY | [address] | [address] | | + + + + + [...] | + + + + + | [facility] | [address] | [place] [address] | | | NATALEE WORTHINGTON | PARK [...] | + + + + + | [facility] | [address] | [place] [address] | | | SERVICES, CORE | VILMA [...] | | | LABORATORY | | | NIGERIAN | | | SERVICES, | | | [...] [facility] | [address] | [place] [address] | | | SERVICES, CORE | VILMA [...] [facility] | [address] | [place] [address] | | | NATALEE WORTHINGTON | VILMA [...] | + + + + + | [facility] | [address] | [place] [address] | | | SERVICES, CORE | VILMA [...] | | | LABORATORY | | | NIGERIAN | | | SERVICES, | | | [...] + + | [facility] | [address] | [place] [address] | | | SERVICES, CORE | [address] [...] | + + + + + | [facility] | [address] | [place] [address] | | | NATALEE WORTHINGTON | VILMA [...] | + + + + + | [facility] | [address] | [place] [address] | | | SERVICES, CORE | VILMA [...] | | | LABORATORY | | | NIGERIAN | | | SERVICES, | | | [...] | + + + + + | [facility] | [address] | [place] [address] | | | SERVICES, CORE | VILMA [...] Note | + + | Service Account, MemoryBistro Res In Interface - 09/17/2017 11:53 AM [...] | + + + + + | [facility] | [address] | [place] [address] | | | SERVICES, CORE | [address] | | | + + + + + MAGNESIUM, PLASMA (09/17/2017 6:46 AM PDT) + +-------+ + + + | Component | Value | Ref Range | Performed | Pathologist | | | | | At | Signature | + +-------+ + + + | MAGNESIUM,P | 2.4 | 1.6 - 2.6 mg/dL | [facility] | | | [facility] | | [...] [facility] | [address] | [place] [address] | | | SERVICES, NATALEE | VILMA [...] | | | LABORATORY | | | NIGERIAN | | | SERVICES, | | | [...] | + + + + + | [facility] | [address] | [place] [address] | | | SERVICES, CORE | [address] | | | + + + + + X-RAY PORTABLE CHEST PICC LINE CHECK (09/16/2017 1:11 PM PDT) + + | Specimen | + + | | + + + + + | Narrative | Performed At | + + + | EXAM: NM CHEST PICC LINE CHECK HISTORY: PICC placement [...] Note | + + | Service Account, TLM Com In Interface - 09/16/2017 1:34 PM PDT EXAM: NM CHEST | | PICC LINE CHECK HISTORY: [...] At | + + + | EXAM: NM CHEST PICC LINE CHECK HISTORY: Evaluate PICC [...] Note | + + | Service Account, TLM Com In Interface - 09/16/2017 11:41 AM PDT EXAM: NM CHEST | | PICC LINE CHECK HISTORY: [...] [facility] | [address] | [place] [address] | | | SERVICES, CORE | [address]ARK [...] | + + + + + | [facility] | [address] | [place] [address] | | | NATALEE WORTHINGTON | VILMA [...] | | | LABORATORY | | | NIGERIAN | | | SERVICES, | | | [...] | + + + + + | [facility] | [address] | [place] [address] | | | SERVICES, CORE | [address] | | | + + + + + X-RAY PORTABLE CHEST 1 VIEW (09/15/2017 3:28 PM PDT) + + | Specimen | + + | | + + + + + | Narrative | Performed At | + + + | EXAM: NM CHEST 1 VIEW HISTORY: COMPARISON: None. | [...] Note | + + | Service Account, MemoryBistro Res In Interface - 09/15/2017 6:45 PM PDT EXAM: NM CHEST 1 | | VIEW HISTORY: COMPARISON: [...] At | + + + | EXAM: NM CHEST PICC LINE CHECK HISTORY: PICC COMPARISON: | [facility] | | 09/10/17 FINDINGS: A left upper [...] Interface - 09/15/2017 6:43 PM PDT EXAM: NM CHEST | | PICC LINE CHECK HISTORY: [...] name: Chris Kern | | | Jarad CHAVEZ,BSN,VAT Assisted by Declan jones RN,VAT | | | Pre-Procedure Consent: written consent obtained Consent given by: | | | Patient Patient identity confirmed per protocol: Yes Team Pause: | | | Immediatly prior to the procedure a pause per protocol was called. A | | | pause verifies correct patient, procedure, equipment, application support manager | | | and site/side [...] | area Basilic vein. Catheter lot number: [id number] with a length of 55 | | [...] Note | + + | Service Account, RadiImalogix Res In Interface - 09/15/2017 2:13 PM [...] [facility] | [address] | [place] [address] | | | NATLAEE WORTHINGTON | VILMA [...] | + + + + + | [facility] | [address] | [place] [address] | | | NATALEE WORTHINGTON | PARK [...] | | | LABORATORY | | | NIGERIAN | | | SERVICES, | | | [...] | + + + + + | [facility] | [address] | [place] [address] | | | SERVICES, CORE | VILMA [...] | + + + + + | [facility] | [address] | [place] [address] | | | SERVICES, CORE | PARK [...] [facility] | [address] | [place] [address] | | | SERVICES, CORE | PARK [...] | | | LABORATORY | | | NIGERIAN | | | SERVICES, | | | [...] | + + + + + | [facility] | [address] | [place] [address] | | | SERVICESNATALEE | [address] | | | + [...] | + + + + + | [facility] | [address] | [place] [address] | | | SERVICES, CORE | PARK [...] [facility] | [address] | [place] [address] | | | NATALEE WORTHINGTON | PARK [...] | | | LABORATORY | | | NIGERIAN | | | SERVICES, | | | [...] | + + + + + | [facility] | [address] | [place] [address] | | | NATALEE WORTHINGTON | VILMA [...] + + + + + | [facility] | [address] | [place] [address] | | | SERVICES, CORE | VILMA [...] | + + + + + | [facility] | [address] | [place] [address] | | | SERVICES, CORE | PARK [...] | | | LABORATORY | | | NIGERIAN | | | SERVICES, | | | [...] | + + + + + | [facility] | [address] | [place] [address] | | | SERVICES, CORE | VILMA [...] Note | + + | Service Account, RadiImalogix Res In Interface - 09/11/2017 6:22 PM [...] [facility] | [address] | [place] [address] | | | SERVICES, CORE | PARK [...] [facility] | [address] | [place] [address] | | | SERVICES, CORE | PARK [...] | | | LABORATORY | | | NIGERIAN | | | SERVICES, | | | [...] the MDRD equation recommended by the | [facility] | | National Kidney Disease Education Program. [...] | + + + + + | [facility] | [address] | [place] [address] | | | NATALEE WORTHINGTON | PARK [...] | + + + + + | [facility] | [address] | [place] [address] | | | SERVICES, CORE | VILMA [...] Note | + + | Service Account, TLM Com In Interface - 09/10/2017 2:08 PM PDT [...] Note | + + | Service Account, TLM Com In Interface - 09/10/2017 2:31 PM PDT [...] [facility] | | | | | [facility] | | | | + +---------+ + + X-RAY PORTABLE CHEST 1 VIEW (09/10/2017 7:16 AM PDT) + + | Specimen | + + | | + + + + + | Narrative | Performed At | + + + | STUDY: NM CHEST 1 VIEW 09/10/17 07:02:01 HISTORY: Possible [...] Interface - 09/10/2017 9:25 AM PDT STUDY: NM CHEST 1 | | VIEW 09/10/17 07:02:01 [...] | + + + + + | [facility] | [address] | [place] [address] | | | ELIN, NATALEE | PARK [...] | + + + + + | [facility] | [address] | [place] [address] | | | SERVICES, CORE | PARK [...] | + + + + + | [facility] | [address] | [place] [address] | | | NATALEE WORTHINGTON | PARK [...] | + + + + + | [facility] | [address] | [place] [address] | | | ELIN, NATALEE | PARK [...] | | | LABORATORY | | | NIGERIAN | | | SERVICES, | | | [...] | + + + + + | [facility] | [address] | [place] [address] | | | SERVICES, CORE | [address] | | | + + + + + 12 LEAD ECG (09/10/2017 1:08 AM PDT) + + + + + + | Component | Value | Ref Range | Performed | Pathologist | | | | | At | Signature | + + + + + + | VENTRICULAR | 120 | bpm | [facility] | | [...] | + + + + + | [facility] | [address] | [place], [place] | | | CARDIOLOGY | [address] | [address] | | + + + + + X-RAY ABD LTD FEEDING TUBE EVAL PORTABLE (09/09/2017 10:15 PM PDT) + + | Specimen | + + | | + + + + + | Narrative | Performed At | + + + | INDICATION: feeding tube placement TECHNIQUE: Supine portable | [facility] | | view of the upper [...] | | + +---------+ + + | [facility] | | | | | [...] - [facility] | [address] | [place], [place] | | | [facility] | [address] | [address] | | | TESTS | | | [...] [facility] | [address] | [place] [address] | | | SERVICES, CORE | PARK [...] | + + + + + | [facility] | [address] | [place] [address] | | | SERVICES, CORE | VILMA [...] | | | LABORATORY | | | NIGERIAN | | | SERVICES, | | | [...] [facility] | [address] | [place] [address] | | | SERVICES, CORE | PARK [...] | + + + + + | [facility] | [address] | [place] [address] | | | SERVICES, NATALEE | VILMA [...] | | | LABORATORY | | | NIGERIAN | | | SERVICES, | | | [...] + + | [facility] | [address] | [place] [address] | | | SERVICES, CORE | PARK [...] | + + + + + | [facility] | [address] | [place] [address] | | | SERVICES, CORE | PARK [...] | + + + + + | [facility] | [address] | [place] [address] | | | SERVICES, [facility] | [address] | | | + + + + + X-RAY ABD LTD FEEDING TUBE EVAL (09/08/2017 4:38 AM PDT) + + | Specimen | + + | | + + + + + | Narrative | Performed At | + + + | EXAM: ABD LTD FEEDING TUBE EVAL 09/08/17 04:04:50 COMPARISON: | [facility] | | 09/06/17 FINDINGS: Feeding tube [...] DEPT OF | [address] | [place], [place] | | | CARDIOLOGY | [address] | [address] | | + + + + + X-RAY PORTABLE CHEST 1 VIEW (09/07/2017 6:12 AM PDT) + + | Specimen | + + | | + + + + + | Narrative | Performed At | + + + | EXAM: NM CHEST 1 VIEW HISTORY: Post extubation COMPARISON: [...] Interface - 09/07/2017 10:46 AM PDT EXAM: NM CHEST 1 | | VIEWHISTORY: Post extubationCOMPARISON: [...] [facility] | [address] | [place] [address] | | | SERVICES, CORE | PARK [...] | | | LABORATORY | | | NIGERIAN | | | SERVICES, | | | [...] the MDRD equation recommended by the | [facility] | | National Kid[employer] Disease Education [...] | + + + + + | [facility] | [address] | [place] [address] | | | SERVICES, CORE | VILMA [...] [facility] | [address] | [place] [address] | | | NATALEE [place] | PARK [...] Note | + + | Service Account, Radi[employer] Res In Interface - 09/07/2017 10:46 AM [...] Note | + + | Service Account, [employer] Res In Interface - 09/07/2017 10:46 AM [...] + + | [facility] | 537 | ms | [facility] [...] | ECG | Electronically signed | | SELENA GEET | | | IMPRESSION | by: JULIO [...] | + + + + + | [facility] | [address] | [place], [place] | | | CARDIOLOGY | [address] | [address] | | + + + + + [...] | | | attempt. Midline lot number [id number]; there was positive blood | | | [...] | | | LABORATORY | | | NIGERIAN | | | SERVICES, | | | [...] | + + + + + | [facility] | [address] | [place] [address] | | | SERVICES, CORE | PARK [...] | + + + + + | [facility] | [address] | [place] [address] | | | SERVICES, CORE | [address] | | | + + + + + X-RAY PORTABLE CHEST 1 VIEW (09/05/2017 5:33 AM PDT) + + | Specimen | + + | | + + + + + | Narrative | Performed At | + + + | EXAM: NM CHEST 1 VIEW HISTORY: Evaluation after chest [...] Note | + + | Service Account, [employer] Res In Interface - 09/05/2017 10:16 AM PDT EXAM: NM CHEST 1 | | VIEW HISTORY: Evaluation [...] [facility] | [address] | [place] [address] | | | SERVICES, CORE | PARK [...] | + + + + + | [facility] | [address] | [place] [address] | | | SERVICES, NATALEE | VILMA [...] | | | LABORATORY | | | NIGERIAN | | | SERVICES, | | | [...] | + + + + + | [facility] | [address] | [place] [address] | | | SERVICES, CORE | VILMA [...] | | | LABORATORY | | | NIGERIAN | | | SERVICES, | | | [...] | + + + + + | [facility] | [address] | [place] [address] | | | ELIN, NATALEE | VILMA [...] tomorrow morning. CB Henson Pager / ID: [phone] | | + + + CULTURE, SPUTUM [...] | + + + + + | [facility] - | [address] | [place] [address] | | | [place] | | | | + + + [...] [facility] | [address] | [place] [address] | | | SERVICES, CORE | VILMA [...] | [facility] | | | GRAVITY | Iva performed by | | LABORATORY | | [...] + + | [facility] | [address] | [place] [address] | | | SERVICES, CORE | PARK [...] | + + + + + | [facility] | [address] | [place] [address] | | | SERVICES, NATALEE | VILMA [...] [facility] | [address] | [place] [address] | | | SERVICES, CORE | VILMA [...] DEPT OF | [address] | [place], [place] | | | CARDIOLOGY | [address] | [address] | | + + + + + X-RAY PORTABLE CHEST 1 VIEW (09/04/2017 7:04 AM PDT) + + | Specimen | + + | | + + + + + | Narrative | Performed At | + + + | EXAM: NM CHEST 1 VIEW HISTORY: Hypoxia. Intubated. | [...] Interface - 09/04/2017 9:49 AM PDT EXAM: NM CHEST 1 | | VIEW HISTORY: Hypoxia. [...] [facility] | [address] | [place] [address] | | | SERVICES, CORE | PARK [...] | + + + + + | [facility] | [address] | [place] [address] | | | SERVICES, CORE | VILMA [...] | | | LABORATORY | | | NIGERIAN | | | SERVICES, | | | [...] | + + + + + | [facility] | [address] | [place] [address] | | | SERVICES, CORE | VILMA [...] | + + + + + | [facility] | [address] | [place] [address] | | | SERVICES, CORE | VILMA [...] (H) | 70 - 99 mg/dL | [facility] - | | | GLUCOSE, | [...] [facility] | [address] | [place], [place] | | | GL[facility]IA GE[facility] CARE | [address] | [address] | | | TESTS | | | [...] [facility] | [address] | [place], [place] | | | GLORIA GENAO OF [facility] | [address] | [address] | | | TESTS | | | [...] - [facility] | [address] | [place], [place] | | | [facility] | [address] | [address] | | | TESTS | | | [...] [facility] | [address] | [place], [place] | | | [facility]ARE | [address] | [address] | | | TESTS | | | [...] Note | + + | Service Account, TLM Com In Interface - 09/03/2017 10:27 AM PDT [...] + | [facility] - | [address] | [place] [address] | | | [place] | | | | + + + [...] [facility] | [address] | [place] [address] | | | SERVICES, [facility] | [address] | [...] Note | + + | Service Account, MemoryBistro Res In Interface - 09/03/2017 9:54 AM [...] + | [facility] - | [address] | [place] [address] | | | [place] | | | [...] + + | [facility] | [address] | [place] [address] | | | SERVICES, CORE | PARK [...] [facility] | [address] | [place] [address] | | | SERVICES, CORE | PARK [...] | | | LABORATORY | | | NIGERIAN | | | SERVICES, | | | [...] | + + + + + | [facility] | [address] | [place] [address] | | | ELIN, NATALEE | VILMA [...] | + + + + + | [facility] | [address] | [place] [address] | | | SERVICES, CORE | [address] | | | + + + + + OPERATION RECORD (09/02/2017 6:53 PM PDT) + + | Procedure Note | + + | Fidelina Shileds MD - 09/02/2017 6:53 PM PDT Date of Service: 09/02/2017 | | Attending Surgeon: Fidelina Shields MD Multimedia Teacher(s): | | Ajay Butts MD, resident. Preoperative [...] 09/02/2017 18:15:29DT: 09/02/2017 18:53:52Job #: | | [id number] to federal Medicare and Medicaid regulations I was present for | | the entire procedure.Fidelina Shields MDAssistant ProfessorDepartment of SurgeryOffice: | | [phone]: [id number] has been electronically signed by Fidelina Shields MD, | | 09/03/2017 at 9:11 AM. | | | | | |Fidelina Shields MD | |Diabetes Educator | |Department of Surgery | |Office: [phone] | |Pager: [phone] | | | |This has been electronically signed by Fdielina Shields MD, 09/03/2017 at 9:11 AM. | [...] | + + + + + | [facility] | [address] | [place] [address] | | | ELIN, NATALEE | VILMA [...] | + + + + + | [facility] | [address] | [place] [address] | | | ELIN, NATALEE | VILMA [...] + | [facility] - | [address] | [place] [address] | | | [place] | | | | + + + [...] [facility] | [address] | [place] [address] | | | SERVICES, CORE | PARK [...] | | | LABORATORY | | | NIGERIAN | | | SERVICES, | | | [...] the MDRD equation recommended by the | [facility] | | National Kidney Disease Education [...] | + + + + + | [facility] | [address] | [place] [address] | | | SERVICES, [facility] | [address] [...] | | | contact: INGRID Butts, Surgery [phone] Pursuant | | | to federal Medicare and Medicaid regulations I was present for the | | | entire procedure. Fidelina Shields MD Diabetes Educator | | | Department of Surgery Office: [phone] Pager: [phone] This has | | | been electronically [...] | + + + + + | [facility] | [address] | [place] [address] | | | SERVICES, CORE | VILMA [...] | + + + + + | [facility] | [address] | [place] [address] | | | SERVICES, CORE | [address] | | | + + + + + OPERATION RECORD (09/02/2017 6:51 AM PDT) + ---+ | Procedure Note | + ---+ | Fidelina Shields MD - 09/02/2017 6:51 AM PDT Date of Service: 09/01/2017 | | Attending Surgeon: Fidelina Shields MD Multimedia Teacher(s): Haim Peralta MD. | | Ajay Butts [...] 09/02/2017 06:17:53DT: 09/02/2017 | | 06:51:37Job #: [id number] to federal Medicare and Medicaid regulations I | | was present for the entire procedure.Fidelina Shields MDAssistant ProfessorDepartment of | | SurgeryOffice: [phone]: [id number] has been electronically signed by Fidelina Whitman | | MD Cornelius, 09/02/2017 at 10:40 AM. | | | | | |Pursuant to federal Medicare and Medicaid regulations I was present for the entire procedur e. | | | | | | | |Fidelina Shields MD | |Diabetes Educator | |Department of Surgery | |Office: [phone] | |Pager: [phone] | | | |This has been electronically [...] | + + + + + | [facility] | [address] | [place] [address] | | | SERVICES, CORE | PARK [...] [facility] | [address] | [place] [address] | | | SERVICES, CORE | VILMA [...] + + + + | PRODUCT | [id number] | | [facility] | | | UNIT [...] + + + + | EXPIRATION | [id number] | | [facility] | | | DATE [...] + + + + | BLOOD | [id number] | | [facility] | | | PRODUCT [...] | + + + + + | [facility] | [address] | [place] [address] | | | SERVICES, | [address] [...] the pelvis without intravenous contrast HISTORY: | [facility] | | Trauma. Concern for bladder injury. [...] [facility] | [address] | [place] [address] | | | SERVICES, CORE | PARK [...] | | | LABORATORY | | | NIGERIAN | | | SERVICES, | | | [...] | + + + + + | [facility] | [address] | [place] [address] | | | SERVICES, CORE | VILMA [...] | + + + + + | [employer] [facility] | [address] | [place] [address] | | | SERVICES, CORE | VILMA [...] (http://www.cdc.gov/mmwr | | | | | | [email or web address]/mmwrhtml/[email or web address] | | | | | | [email or web address]), [...] [facility] - | | | | by [employer], | | AIRPORT - | | | | | | [place] | | | | [facility] | | | | | | [place], [place] | | | | | | [address] | | | | | | | | | | | | [email or web address] | | | | | | MD [...] + | [facility] - | [address] | [place] [address] | | | [place] | | | [...] [facility] | [address] | [place] [address] | | | NATALEE WORTHINGTON | VILMA [...] | + + + + + | [facility] | [address] | [place] [address] | | | SERVICES, [facility] | [address] [...] Account, Kostas Res In Interface - 09/02/2017 8:55 AM [...] At | + + + | EXAM: NM CHEST 1 VIEW HISTORY: Hypoxemia COMPARISON: 09/01/17 [...] Interface - 09/02/2017 10:34 AM PDT EXAM: NM CHEST 1 | | VIEW HISTORY: HypoxemiaCOMPARISON: [...] | + + + + + | [facility] | [address] | [place] [address] | | | SERVICES, CORE | VILMA [...] (L) | 41.0 - 53.0 % | [facility] | | | | | | LABORATORY [...] | + + + + + | [facility] | [address] | [place] [address] | | | SERVICES, CORE | PARK [...] + + + + | PRODUCT | [id number] | | [facility] | | | UNIT [...] + + + + | EXPIRATION | [id number] | | [facility] | | | DATE [...] + + + + | BLOOD | [id number] | | [facility] | | | PRODUCT [...] [facility] | [address] | [place] [address] | | | SERVICES, | [address] [...] [facility] | [address] | [place] [address] | | | SERVICES, CORE | PARK [...] [facility] | [address] | [place] [address] | | | SERVICES, CORE | PARK [...] [facility] | [address] | [place] [address] | | | SERVICES, CORE | PARK [...] | | | LABORATORY | | | NIGERIAN | | | SERVICES, | | | [...] + + | [facility] | [address] | [place] [address] | | | NATALEE WORTHINGTON | VILMA [...] | + + + + + | [facility] | [address] | [place] [address] | | | SERVICES, CORE | VILMA [...] | + + + + + | [facility] | [address] | [place] [address] | | | SERVICES, [facility] | [address] [...] micropuncture access set was exchanged for a Gelato Fiasco wire. Under | | | fluoroscopic guidance, a 5 Fr flush catheter was used to evaluate the | | | distal abdominal aorta and pelvic vasculature. A wire and catheter | | | were then used to select the left common and internal iliac arteries | | | from the right STONE AND PLATE PREPARER APPRENTICE approach. DSA was performed from the left [...] micropuncture access set was exchanged for a Gelato Fiasco wire. Under fluoroscopic guidance, | | a 5 Fr flush catheter was used to evaluate the distal abdominal aorta and pelvic | | vasculature. A wire and catheter were then used to select the left common and internal | | iliac arteries from the right STONE AND PLATE PREPARER APPRENTICE approach. DSA was performed from the left [...] micropuncture access set was exchanged for a Gelato Fiasco wire. Under fluoroscopic guidance, a 5 Fr flush catheter was used | |to evaluate the distal abdominal aorta and pelvic vasculature. A wire and catheter were th en used to select the left common and internal iliac arteries from the right STONE AND PLATE PREPARER APPRENTICE approach. DSA was performed from the left [...] | | + +---------+ + + ABG-KENRICK ABL, POC (09/01/2017 1:36 PM PDT) + [...] + + | [facility] | [address] | [place], [place] | | | [facility] | [address] | [address] | | | TESTS | | | | + + + + + EXPLORATORY LAPAROTOMY (09/01/2017 12:31 PM PDT) + + + | Narrative | Performed At | + + + | Fidelina Shields MD 09/01/2017 12:42 PM BRIEF OPERATIVE NOTE: | | | Date: 09/01/2017 Author: Fidelina Shields MD | | | Attending Physician: Fidelina Shields MD Multimedia Teacher(s): Haim Peralta | | | , Vicente [...] case. | | | Fidelina Shields MD Diabetes Educator Division of Trauma, | | | Critical Care and Acute Care Surgery Office: [phone] Pager: | [phone] | | + + + ABG-FULL ABL, [...] - [facility] | [address] | [place], [place] | | | [facility] | [address] | [address] | | | TESTS | | | [...] [facility] | [address] | [place] [address] | | | SERVICES, NATALEE | VILMA [...] [facility] | [address] | [place], [place] | | | [facility] | [address] | [address] | | | TESTS | | | [...] + + + + | PRODUCT | [id number] | | [facility] | | | UNIT [...] + + + + | EXPIRATION | [id number] | | [facility] | | | DATE [...] + + + + | BLOOD | [id number] | | [facility] | | | PRODUCT [...] | + + + + + | [facility] | [address] | [place] [address] | | | SERVICES, | [address] [...] + + + + | PRODUCT | [id number] | | [facility] | | | UNIT [...] + + + + | EXPIRATION | [id number] | | [facility] | | | DATE [...] + + + + | BLOOD | [id number] | | [facility] | | | PRODUCT [...] | + + + + + | [facility] | [address] | [place] [address] | | | SERVICES, | [address] [...] + + + + | PRODUCT | [id number] | | [facility] | | | UNIT [...] + + + + | EXPIRATION | [id number] | | [facility] | | | DATE [...] + + + + | BLOOD | [id number] | | [facility] | | | PRODUCT [...] [facility] | [address] | [place] [address] | | | SERVICES, | [address] [...] + + + + | PRODUCT | [id number] | | [facility] | | | UNIT [...] + + + + | EXPIRATION | [id number] | | [facility] | | | DATE [...] + + + + | BLOOD | [id number] | | [facility] | | | PRODUCT [...] [facility] | [address] | [place] [address] | | | SERVICES, | [address] [...] + + + + | PRODUCT | [id number] | | [facility] | | | UNIT [...] + + + + | EXPIRATION | [id number] | | [facility] | | | DATE [...] + + + + | BLOOD | [id number] | | [facility] | | | PRODUCT [...] [facility] | [address] | [place] [address] | | | SERVICES, | [address] [...] + + + + | PRODUCT | [id number] | | [facility] | | | UNIT [...] + + + + | EXPIRATION | [id number] | | [facility] | | | DATE [...] + + + + | BLOOD | [id number] | | [facility] | | | PRODUCT [...] [facility] | [address] | [place] [address] | | | SERVICES, | [address] [...] + + + + | PRODUCT | [id number] | | [facility] | | | UNIT [...] + + + + | EXPIRATION | [id number] | | [facility] | | | DATE [...] + + + + | BLOOD | [id number] | | [facility] | | | PRODUCT [...] LABORATORY | [address] | [place] [address] | | | SERVICES, | [address] [...] + + + + | PRODUCT | [id number] | | [facility] | | | UNIT [...] + + + + | EXPIRATION | [id number] | | [facility] | | | DATE [...] + + + + | BLOOD | [id number] | | [facility] | | | PRODUCT [...] | + + + + + | [facility] | [address] | [place] [address] | | | SERVICES, | [address] [...] + + + + | PRODUCT | [id number] | | [facility] | | | UNIT [...] + + + + | EXPIRATION | [id number] | | [facility] | | | DATE [...] + + + + | BLOOD | [id number] | | [facility] | | | PRODUCT [...] | + + + + + | [facility] | [address] | [place] [address] | | | SERVICES, | [address] [...] + + + + | PRODUCT | [id number] | | [facility] | | | UNIT [...] + + + + | EXPIRATION | [id number] | | [facility] | | | DATE [...] + + + + | BLOOD | [id number] | | [facility] | | | PRODUCT [...] | + + + + + | [facility] | [address] | [place] [address] | | | SERVICES, | [address] [...] + + + + | PRODUCT | [id number] | | [facility] | | | UNIT [...] + + + + | EXPIRATION | [id number] | | [facility] | | | DATE [...] + + + + | BLOOD | [id number] | | [facility] | | | PRODUCT [...] | + + + + + | [facility] | [address] | [place] [address] | | | SERVICES, | [address] [...] + + + + | PRODUCT | [id number] | | [facility] | | | UNIT [...] + + + + | EXPIRATION | [id number] | | [facility] | | | DATE [...] + + + + | BLOOD | [id number] | | [facility] | | | PRODUCT [...] [facility] | [address] | [place] [address] | | | SERVICES, | [address] [...] + + + + | PRODUCT | [id number] | | [facility] | | | UNIT [...] + + + + | EXPIRATION | [id number] | | [facility] | | | DATE [...] + + + + | BLOOD | [id number] | | [facility] | | | PRODUCT [...] [facility] | [address] | [place] [address] | | | SERVICES, | [address] [...] + + + + | PRODUCT | [id number] | | [facility] | | | UNIT [...] + + + + | EXPIRATION | [id number] | | [facility] | | | DATE [...] + + + + | BLOOD | [id number] | | [facility] | | | PRODUCT [...] [facility] | [address] | [place] [address] | | | SERVICES, | [address] [...] + + + + | PRODUCT | [id number] | | [facility] | | | UNIT [...] + + + + | EXPIRATION | [id number] | | [facility] | | | DATE [...] + + + + | BLOOD | [id number] | | [facility] | | | PRODUCT [...] [facility] | [address] | [place] [address] | | | SERVICES, | [address] [...] + + + + | PRODUCT | [id number] | | [facility] | | | UNIT [...] + + + + | EXPIRATION | [id number] | | [facility] | | | DATE [...] + + + + | BLOOD | [id number] | | [facility] | | | PRODUCT [...] LABORATORY | [address] | [place] [address] | | | SERVICES, | [address] [...] + + + + | PRODUCT | [id number] | | [facility] | | | UNIT [...] + + + + | EXPIRATION | [id number] | | [facility] | | | DATE [...] + + + + | BLOOD | [id number] | | [facility] | | | PRODUCT [...] LABORATORY | [address] | [place] [address] | | | SERVICES, | [address] [...] + + + + | PRODUCT | [id number] | | [facility] | | | UNIT [...] + + + + | EXPIRATION | [id number] | | [facility] | | | DATE [...] + + + + | BLOOD | [id number] | | [facility] | | | PRODUCT [...] [facility] | [address] | [place] [address] | | | SERVICES, | [address] [...] + + + + | PRODUCT | [id number] | | [facility] | | | UNIT [...] + + + + | EXPIRATION | [id number] | | [facility] | | | DATE [...] + + + + | BLOOD | [id number] | | [facility] | | | PRODUCT [...] | + + + + + | [facility] | [address] | [place] [address] | | | SERVICES, | [address] [...] + + + + | PRODUCT | [id number] | | [facility] | | | UNIT [...] + + + + | EXPIRATION | [id number] | | [facility] | | | DATE [...] + + + + | BLOOD | [id number] | | [facility] | | | PRODUCT [...] | + + + + + | [facility] | [address] | [place] [address] | | | SERVICES, | [address] [...] + + + + | PRODUCT | [id number] | | [facility] | | | UNIT [...] + + + + | EXPIRATION | [id number] | | [facility] | | | DATE [...] + + + + | BLOOD | [id number] | | [facility] | | | PRODUCT [...] | + + + + + | [facility] | [address] | [place] [address] | | | SERVICES, | [address] [...] + + + + | PRODUCT | [id number] | | [facility] | | | UNIT [...] + + + + | EXPIRATION | [id number] | | [facility] | | | DATE [...] + + + + | BLOOD | [id number] | | [facility] | | | PRODUCT [...] | + + + + + | [facility] | [address] | [place] [address] | | | SERVICES, | [address] [...] + + + + | PRODUCT | [id number] | | [facility] | | | UNIT [...] + + + + | EXPIRATION | [id number] | | [facility] | | | DATE [...] + + + + | BLOOD | [id number] | | [facility] | | | PRODUCT [...] [facility] | [address] | [place] [address] | | | SERVICES, | [address] [...] + + + + | PRODUCT | [id number] | | [facility] | | | UNIT [...] + + + + | EXPIRATION | [id number] | | [facility] | | | DATE [...] + + + + | BLOOD | [id number] | | [facility] | | | PRODUCT [...] [facility] | [address] | [place] [address] | | | SERVICES, | [address] [...] + + + + | PRODUCT | [id number] | | [facility] | | | UNIT [...] + + + + | EXPIRATION | [id number] | | [facility] | | | DATE [...] + + + + | BLOOD | [id number] | | [facility] | | | PRODUCT [...] [facility] | [address] | [place] [address] | | | SERVICES, | [address] [...] + + + + | PRODUCT | [id number] | | [facility] | | | UNIT [...] + + + + | EXPIRATION | [id number] | | [facility] | | | DATE [...] + + + + | BLOOD | [id number] | | [facility] | | | PRODUCT [...] [facility] | [address] | [place] [address] | | | SERVICES, | [address] [...] [facility] | [address] | [place] [address] | | | SERVICES, CORE | [address] [...] | | | LABORATORY | | | NIGERIAN | | | SERVICES, | | | [...] | + + + + + | [facility] | [address] | [place] [address] | | | SERVICES, CORE | [address] [...] + + | [facility] | [address] | [place] [address] | | | NATALEE [place]THINGTON | [address] [...] [facility] | [address] | [place], [place] | | | [facility] | [address] | [address] | | | TESTS | | | | + + + + + X-RAY PORTABLE CHEST 1 VIEW (09/01/2017 9:18 AM PDT) + + | Specimen | + + | | + + + + + | Narrative | Performed At | + + + | EXAM: NM CHEST 1 VIEW HISTORY: Intubated COMPARISON: 08/31/17 [...] Note | + + | Service Account, MemoryBistro Res In Interface - 09/02/2017 1:23 PM PDT EXAM: NM CHEST 1 | | VIEW HISTORY: IntubatedCOMPARISON: [...] | | + +---------+ + + | [facility] | | | | | [...] + + + + | PRODUCT | [id number] | | [facility] | | | UNIT [...] + + + + | EXPIRATION | [id number] | | [facility] | | | DATE [...] + + + + | BLOOD | [id number] | | [facility] | | | PRODUCT [...] [facility] | [address] | [place] [address] | | | SERVICES, | [address] [...] + + + + | PRODUCT | [id number] | | [facility] | | | UNIT [...] + + + + | EXPIRATION | [id number] | | [facility] | | | DATE [...] + + + + | BLOOD | [id number] | | [facility] | | | PRODUCT [...] [facility] | [address] | [place] [address] | | | SERVICES, | [address] [...] + + + + | PRODUCT | [id number] | | [facility] | | | UNIT [...] + + + + | EXPIRATION | [id number] | | [facility] | | | DATE [...] + + + + | BLOOD | [id number] | | [facility] | | | PRODUCT [...] [facility] | [address] | [place] [address] | | | SERVICES, | [address] [...] + + + + | PRODUCT | [id number] | | [facility] | | | UNIT [...] + + + + | EXPIRATION | [id number] | | [facility] | | | DATE [...] + + + + | BLOOD | [id number] | | [facility] | | | PRODUCT [...] [facility] | [address] | [place] [address] | | | SERVICES, | [address] [...] + + + + | PRODUCT | [id number] | | [facility] | | | UNIT [...] + + + + | EXPIRATION | [id number] | | [facility] | | | DATE [...] + + + + | BLOOD | [id number] | | [facility] | | | PRODUCT [...] [facility] | [address] | [place] [address] | | | SERVICES, | [address] [...] + + + + | PRODUCT | [id number] | | [facility] | | | UNIT [...] + + + + | EXPIRATION | [id number] | | [facility] | | | DATE [...] + + + + | BLOOD | [id number] | | [facility] | | | PRODUCT [...] [facility] | [address] | [place] [address] | | | SERVICES, | [address] [...] + + + + | PRODUCT | [id number] | | [facility] | | | UNIT [...] + + + + | EXPIRATION | [id number] | | [facility] | | | DATE [...] + + + + | BLOOD | [id number] | | [facility] | | | PRODUCT [...] | + + + + + | [facility] | [address] | [place] [address] | | | SERVICES, | [...] + + + + | PRODUCT | [id number] | | [facility] | | | UNIT [...] + + + + | EXPIRATION | [id number] | | [facility] | | | DATE [...] + + + + | BLOOD | [id number] | | [facility] | | | PRODUCT [...] | + + + + + | [facility] | [address] | [place] [address] | | | SERVICES, | [address] [...] Note | + + | Service Account, [employer] Res In Interface - 09/01/2017 9:01 AM [...] + + + + | PRODUCT | [id number] | | [facility] | | | UNIT [...] + + + + | EXPIRATION | [id number] | | [facility] | | | DATE [...] + + + + | BLOOD | [id number] | | [facility] | | | PRODUCT [...] [facility] | [address] | [place] [address] | | | SERVICES, | [address] [...] [facility] | [address] | [place] [address] | | | NATALEE WORTHINGTON | [address] [...] | + + + + + | [facility] | [address] | [place] [address] | | | SERVICES, CORE | [address] [...] Note | + + | Service Account, [employer] Res In Interface - 09/01/2017 10:10 AM [...] | | | LABORATORY | | | [facility] | | | SERVICES, | | | [...] | + + + + + | [facility] | [address] | [place] [address] | | | SERVICES, CORE | [address] [...] | + + + + + | [facility] | [address] | [place] [address] | | | SERVICES, CORE | [address] [...] | + + + + + | [facility] | [address] | [place] [address] | | | SERVICES, CORE | [address] [...] | + + + + + | [facility] | [address] | [place] [address] | | | SERVICES, CORE | [address] [...] Diogenes Temple 08/31/2017 Time: 17:45 | PIYUSH GENAO | | Diagnosis: Hypotension, trauma The patient [...] + + + | [facility] | [address] | [place], [place] | | | [facility] [facility] | [address] | [address] | | | TESTS | | | [...] [facility] | [address] | [place] [address] | | | SERVICES, CORE | PARK [...] | + + + + + | [facility] | [address] | [place] [address] | | | SERVICES, [facility] | [address] | [...] + + | Performing | Address | City/State[facility] | Phone Number | | [...] Account, Kostas Res In Interface - 09/01/2017 1:40 PM [...] [facility] | [address] | [place] [address] | | | SERVICES, CORE | [address] | | | + + + + + X-RAY PORTABLE CHEST 1 VIEW (08/31/2017 7:07 PM PDT) + + | Specimen | + + | | + + + + + | Narrative | Performed At | + + + | STUDY: NM CHEST 1 VIEW HISTORY: Trauma COMPARISON: CT CAP | [facility] | | 08/31/2017 FINDINGS: Endotracheal tube with [...] Note | + + | Service Account, Radi[employer] Res In Interface - 09/01/2017 1:44 PM PDT STUDY: NM CHEST 1 | | VIEWHISTORY: TraumaCOMPARISON: CT [...] | + + + + + | [facility] | [address] | [place] [address] | | | SERVICES, NATALEE | [address] [...] Note | + + | Service Account, MemoryBistro Res In Interface - 08/31/2017 8:22 PM [...] + + | Performing | Address | City/State/[facility] | Phone Number | | [...] Note | + + | Service Account, TLM Com In Interface - 09/01/2017 10:12 AM PDT [...] rib, nondisplaced-Left | | 1st rib fracture, lejkdfxyyqmb-Xjh-zczhxabsg left lateral 8th rib fracture-T12 fracture | [...] [facility] | [address] | [place] [address] | | | SERVICES, | [address] [...] | + + + + + | [facility] | [address] | [place] [address] | | | SERVICES, | [address] [...] | + + + + + | [facility] | [address] | [place] [address] | | | [address] | | | | TRANSFUSION MEDICINE [...] [place] | | | | | | HILL, [...] [facility] | [address] | [place], [place] | | | GLORIA GENAO OF CARE | [address] | [address] | | | TESTS | | | [...] [facility] | [address] | [place], [place] | | | JOHN GENAO | [facility] | [address] | | | TESTS | | | [...] [facility] | | | | | | HILL, [...] + | [facility] | [address] [facility] | [place], [place] | | | GLORIA GENAO OF GM | [address] | [address] | | | TESTS | | | [...] [facility] | [address] | [place], [place] | | | GLORIA GENAO OF [facility] | [address] | [address] | | | TESTS | | | [...] + + + + | PRODUCT | [id number] | | [facility] | | | UNIT [...] + + + + | EXPIRATION | [id number] | | [facility] | | | DATE [...] + + + + | BLOOD | [id number] | | [facility] | | | PRODUCT [...] | + + + + + | [facility] | [address] | [place] [address] | | | SERVICES, | [address] [...] + + + + | PRODUCT | [id number] | | [facility] | | | UNIT [...] + + + + | EXPIRATION | [id number] | | [facility] | | | DATE [...] + + + + | BLOOD | [id number] | | [facility] | | | PRODUCT [...] | + + + + + | [facility] | [address] | [place] [address] | | | SERVICES, | [address] [...] + + + + | PRODUCT | [id number] | | [facility] | | | UNIT [...] + + + + | EXPIRATION | [id number] | | [facility] | | | DATE [...] + + + + | BLOOD | [id number] | | [facility] | | | PRODUCT [...] | + + + + + | [facility] | [address] | [place] [address] | | | SERVICES, | [address] [...] + + + + | PRODUCT | [id number] | | [facility] | | | UNIT [...] + + + + | EXPIRATION | [id number] | | [facility] | | | DATE [...] + + + + | BLOOD | [id number] | | [facility] | | | PRODUCT [...] [facility] | [address] | [place] [address] | | | SERVICES, | [address] [...] + + + + | PRODUCT | [id number] | | [facility] | | | UNIT [...] + + + + | EXPIRATION | [id number] | | [facility] | | | DATE [...] + + + + | BLOOD | [id number] | | [facility] | | | PRODUCT [...] [facility] | [address] | [place] [address] | | | SERVICES, | [address] [...] + + + + | PRODUCT | [id number] | | [facility] | | | UNIT [...] + + + + | EXPIRATION | [id number] | | [facility] | | | DATE [...] + + + + | BLOOD | [id number] | | [facility] | | | PRODUCT [...] [facility] | [address] | [place] [address] | | | SERVICES, | [address] [...] + + + + | PRODUCT | [id number] | | [facility] | | | UNIT [...] + + + + | EXPIRATION | [id number] | | [facility] | | | DATE [...] + + + + | BLOOD | [id number] | | [facility] | | | PRODUCT [...] [facility] | [address] | [place] [address] | | | SERVICES, | [address] [...] + + + + | PRODUCT | [id number] | | [facility] | | | UNIT [...] + + + + | EXPIRATION | [id number] | | [facility] | | | DATE [...] + + + + | BLOOD | [id number] | | [facility] | | | PRODUCT [...] [facility] | [address] | [place] [address] | | | SERVICES, | [address] [...] [facility] | [address] | [place] [address] | | | SERVICES, CORE | [address] [...] | | | LABORATORY | | | NIGERIAN | | | SERVICES, | | | [...] | + + + + + | [facility] | [address] | [place] [address] | | | SERVICES, CORE | [address] [...] [facility] | [address] | [place] [address] | | | SERVICES, CORE | P[address] [...] | + + + + + | [facility] | [address] | [place] [address] | | | SERVICES, NATALEE | [address] [...] [facility] | [address] | [place] [address] | | | SERVICES, CORE | [address] [...] | + + + + + | [facility] | [address] | [place] [address] | | | [address]EE [address] | [address] [...]
--- OUTSIDE RECORDS SUMMARY | ~2020-02-06 | XMS | Encounter Summary ---
Demographics + + + | Address | [address] | | | [place] [address] | + + + | Home Phone [...] + | Author | [facility] [employer] [facility] | + + + | Organization | [facility] [employer] [facility] | + + + | Address | Unknown | + + + | Phone | Unavailable | + + + Support + + +---------+ + | Name | Relationship | Address | Phone | + + +---------+ + | Kaylie Baig | ECON | Unknown | | + + +---------+ + Care Team Providers + +------+ + | Care Regional Operations Manager Name | Role | Phone [...] Pharmacy | | | | | | [address] | | | | | | [address] [place], [place] | | | | | | [address] | | | | | | [phone] | | | +--------+ + + + [...]
--- OUTSIDE RECORDS SUMMARY | ~2020-02-06 | XMS | Encounter Summary ---
Demographics + + + | Address | [address] | | | [place] [address] | + + + | Home Phone [...] Author | [facility] [employer] [facility] | + + + | Organization | [facility] [employer] [facility] | + + + | Address | Unknown | + + + | Phone | Unavailable | + + + Support + + +---------+ + | Name | Relationship | Address | Phone | + + +---------+ + | Kaylie Baig | ECON | Unknown | | + + +---------+ + Care Team Providers + +------+ + | Care Upholstery Sewer Name | Role | Phone | [...] | | 2018 | anned | Services [address] | | | | | [address] | | | | | | Mailcode: [id number] | | | | | | [facility] | | | | | | [place], [place] | | | | | | [address] | | | | | | [phone] | | | +--------+ + + + [...]
--- OUTSIDE RECORDS SUMMARY | ~2020-02-06 | XMS | Encounter Summary ---
Demographics + + + | Address | [address] | | | [place] [address] | + + + | Home Phone [...] Author | [facility] [employer] [facility] | + + + | Organization | [facility] [employer] [facility] [...] Team Providers + +------+ + | Care Records Management Specialist Name | Role | Phone [...] floor | | | | | | [place], [place] | | | | | | [address] | | | +--------+ + + + [...]
--- OUTSIDE RECORDS SUMMARY | ~2020-02-06 | XMS | Encounter Summary ---
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 Critical Care and Acute Care Surgery [...] - patient unable to come out fo PRODUCTION OR PLANT ENGINEER for now - Will likely need [...] by patient, but wound remains cl zeferino/dry/intact. [place] removed 09/17. #Left hemothorax Chest tube placed [...] [place] [phone] [facility] [place] [address] [place] [address] [phone] Associated attestation - Chaz Hernandez MD - 10/07/2017 11:15 AM PDTI saw and examined th e patient today with KESHAWN Martin, and agree with the assessement and plan a s outlined in her note. Will consider changing to bolus TF. Plan Gabriel-oconnor tube next week. Chaz Hernandez MD, FACS Damage Prevention Coordinator, Trauma, Critical Care and Acute Care Surgery [...] p atient unable to come out fo PRODUCTION OR PLANT ENGINEER for now Resolved or chronic issues/Plan: [...] issues, including restraints. Venita Pruitt PA-C [place] [phone] [facility] [address] [place] [address] [phone] Associated attestation - Em Cunningham MD - 10/17/2017 10:13 AM PDTI was present and rou nded with the Advanced Practice Provider today . I interviewed and examined the patient. I reviewed the history, as documented today. I agree with the ASHLEY assessment and plan. TBI has remained stable. On lovenox. Will continue haldol per psych.. EM CUNNINGHAM MD [facility] [address] [place] [address] [place] [address] Venita Pruitt PA-C - 10/05/2017 8:38 AM [...] p atient unable to come out fo PRODUCTION OR PLANT ENGINEER for now Resolved or chronic issues/Plan: [...] issues, including restraints. Venita Pruitt PA-C [place] [phone] [facility] [place] [address] [facility] [place] [phone] Associated attestation - Shlomo Bravo MD - 10/06/2017 7:28 AM PDTFormatting of this note m ight be different from the original. I saw and examined Diogenes Temple ([id number]) with the TRAUMA team on 10/05/2017. I [...] and incen tive spirometry for pulmonary toliet. information technology security manager for disposition planning and placement. Shlomo Bravo MD Repacker Division of Trauma and Critical Care Venita [...] (baseline from previous TBI ) Neck: in [place] collar Respiratory: CTA b.l CV: RRR GI: [...] p atient unable to come out fo PRODUCTION OR PLANT ENGINEER for now Resolved or chronic issues/Plan: [...] issues, including restraints. Venita Pruitt PA-[place] [phone] [facility] [address] [place] [facility] [phone] Associated attestation - Fidelina Shields MD - [...] and only enteral access. Fidelina Shields MD Damage Prevention Coordinator Division of Trauma, Critical Care and Acute Care Surgery Office: [phone] Pager: [phone] Leonor Torres ACNP - 10/03/2017 3:13 PM [...] (baseline from previous TBI ) Neck: in [place] collar Respiratory: CTA bilaterally, no distress CV: [...] p atient unable to come out fo PRODUCTION OR PLANT ENGINEER for now Resolved or chronic issues/Plan: [...] by patient, but wound remains duke n/dry/intact. [place] removed 09/17. #Left hemothorax Chest tube placed [...] PDTAttending: I saw and examined Diogenes Temple ([id number]) with CB Hair on morning rounds 10/03 and agree with the assessment and plan as outlined in this note and participated in the planning of care. Mental status is slightly better, remains sedated but he is interactive and at least somewh at oriented. Enteral nutrition advancing and, as approaches goal, will turn TPN off. Place ment remains a significant issue. Fidelina Shields MD Damage Prevention Coordinator Division of Trauma, Critical Care and Acute Care Surgery Office: [phone] Pager: [phone] July Harp PA-C - 10/03/2017 12:58 PM [...] the C-collar when in bed then the PRODUCTION OR PLANT ENGINEER when out of bed until 12/01/17. JULY HARP PA-C [facility] [address] [place] [address] Associated attestation - Magdiel Stock MD - 10/04/2017 6:02 PM PDTI performed a history a nd physical examination of the patient and discussed the management with the advanced practi ce provider, July Harp PA-C. I reviewed the advanced practice provider's note and agree w ith the plan of care as documented. Continue cervical collar and PRODUCTION OR PLANT ENGINEER for 3 months to ensure fracture healing and prevent development of post-fracture cervical kyphosis. Magdiel Stock MD Damage Prevention Coordinator Department of Neurological Surgery [facility] [place] Sherine Sarmiento [facility] - 10/02/2017 12:54 PM PDTFormatting of this [...] (baseline from previous TBI ) Neck: in [place] collar Respiratory: CTA bilaterally, lungs symmetrical, equal chest wall rise, no retractions CV: RRR GI: non tender, soft, active BS, last BM 09/30 : Patient voiding without difficulty Extremities: no peripheral edema, wiggles toes and toes pink and well perfused Musculoskeletal: 5/5 cutting machine tender decorative strength on right, 3/5 cutting machine tender decorative strength on left FEN: on TPN, transitioning [...] AMS & delirium - numerous evaluations by ACCOUNTS RECEIVABLE CLERK with trials of PO - now s/p [...] . - C-collar at all times, use PRODUCTION OR PLANT ENGINEER when OOB - Follow-up with Neurosurgery [...] will decrease [place] [phone] Associated attestation - Fidelina Shields MD - 10/02/2017 4:40 PM PDTAttending: I saw and examined Diogenes Temple ([id number]) with KESHAWN Alexander on mornin g rounds [...] place prior to DC Fidelina Shields MD Damage Prevention Coordinator Division of Trauma, Critical Care and Acute Care Surgery Office: [phone] Pager: [phone] Sherine Sarmiento AGACNP - 10/01/2017 7:27 AM [...] (baseline from previous TBI ) Neck: in [place] collar Respiratory: CTA bilaterally, lungs symmetrical, equal chest wall rise, no retractions CV: RRR GI: non tender, soft, active BS, last BM 09/30 : Patient voiding without difficulty Extremities: no peripheral edema, wiggles toes and toes pink and well perfused Musculoskeletal: 5/5 cutting machine tender decorative strength on right, 3/5 cutting machine tender decorative strength on left FEN: on TPN Heme/ID: [...] AMS & delirium - numerous evaluations by ACCOUNTS RECEIVABLE CLERK with trials of PO - now s/p modified barium swallow x2 which indicates aspiration - continue NPO - ACCOUNTS RECEIVABLE CLERK reports that patient working on tongue strength [...] . - C-collar at all times, use PRODUCTION OR PLANT ENGINEER when OOB - Follow-up with Neurosurgery [...] trauma team and [place]g [phone] Associated attestation - Fidelina Shields MD - 10/02/2017 4:40 PM PDTAttending: I saw and examined Diogenes Temple ([id number]) with KESHAWN Alexander on mornin g rounds 10/01/17 and agree with the assessment and plan as outlined in this note and partic ipated in the planning of care. Will trial DHT placement today, CT head unchanged. Suspect somnolence is medication side ef fect and, if persistent, may need to wean antipsychotic doses. Fidelina Shields MD Damage Prevention Coordinator Division of Trauma, Critical Care and Acute Care Surgery Office: [phone] Pager: [phone] Christian Kelley PA-C - 09/30/2017 12:21 PM [...] Fixed and dilated on left Neck: in [place] collar Respiratory: CTA bilaterally, lungs symmetrical, equal chest wall rise, no retractions CV: RRR GI: non tender, soft, active BS, last BM 09/30 : Patient voiding without difficulty Extremities: no peripheral edema, wiggles toes and toes pink and well perfused Musculoskeletal: 5/5 cutting machine tender decorative strength on right, 3/5 cutting machine tender decorative strength on left FEN: on TPN Heme/ID: [...] AMS & delirium - numerous evaluations by ACCOUNTS RECEIVABLE CLERK with trials of PO - now s/p modified barium swallow x2 which indicates aspiration - continue NPO - ACCOUNTS RECEIVABLE CLERK reports that patient working on tongue strength [...] . - C-collar at all times, use PRODUCTION OR PLANT ENGINEER when OOB - Follow-up with Neurosurgery on 10/21 with repeat X-rays #Blunt abdominal trauma #Splenic laceration S/p laparotomies x2. Fascia closed 09/02 Wound vac removed by patient, but wound remains duke n/dry/intact. [place] removed 09/17. #Left hemothorax Chest tube placed [...] PDTAttending: I saw and examined Diogenes Temple ([id number]) with Christian Kleley PA-C on morning rounds 09/30 and agree with the assessment and plan as outlined in this note and participated in the planning of care. Mentally slower this morning, but non-focal. Received haldol overnight for sleep. Repeat head CT was unchanged so suspect etiology of slowed responsiveness is the antipsychotic dose . ACCOUNTS RECEIVABLE CLERK believes that, once collar off, may be able to take PO more effectively and thus will hold off on surgical feeding access. TPN is a temporary solution and if patient remains kaye nable will trial DHT tomorrow. Working with psychiatry for medication recommendations. Fidelina Shields MD Damage Prevention Coordinator Division of Trauma, Critical Care and Acute Care Surgery Office: [phone] Pager: [phone] July Harp PA-C - 09/30/2017 8:23 AM PDTBrief Neurosurgery Wound Check: Wound is dry, without erythema, not fluctuant. No acute swelling. Nylon in place. Will plan to follow peripherally for wound checks and remove nylons on 10/09. JULY HARP PA-C [facility] [address] [place] [address] Christian Begum PA-C - 09/29/2017 7:15 AM [...] and EOMs intact to exam Neck: in [place] collar Respiratory: CTA bilaterally, lungs symmetrical, equal [...] AMS & delirium - numerous evaluations by ACCOUNTS RECEIVABLE CLERK with trials of PO - now s/p [...] . - C-collar at all times, use PRODUCTION OR PLANT ENGINEER when OOB - Follow-up with Neurosurgery [...] PDTAttending: I saw and examined Diogenes Temple ([id number]) with Christian Kelley PA-C on morning rounds [...] TPN is not an opt imal equipment operator intermodal yard strategy, would prefer not to place surgical feeding tube if possible given r elatively recent damage control laparotomy and high risk of Mr. Temple pulling it out. Have tried DHT several times and it seems to worsen delirium and he pulls it out frequently. Tit ration of haldol in conjunction with psychiatry. Fidelina Shields MD Damage Prevention Coordinator Division of Trauma, Critical Care and Acute Care Surgery Office: [phone] Pager: [phone] Christian Kelley PA-C - 09/28/2017 1:01 PM [...] he said, who, ariel? And then the 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 helped him make a call to her. [...] and EOMs intact to exam Neck: in [place] collar Respiratory: CTA bilaterally, lungs symmetrical, equal [...] very agitated today. - EKG today with Eros QTc calculated to be 428 - optimize [...] AMS & delirium - numerous evaluations by ACCOUNTS RECEIVABLE CLERK with trials of PO - now s/p [...] . - C-collar at all times, use PRODUCTION OR PLANT ENGINEER when OOB - Follow-up with Neurosurgery [...] more toda y. Chaz Hernandez MD, FACS Damage Prevention Coordinator, Trauma, Critical Care and Acute Care Surgery Chaz Hernandez MD - 09/28/2017 10:13 AM PDTTrauma Staff Seen and examined this AM with team. I have concerns abotu behaviour, as he is consistently threatening RN and ancillary staff, even attempting swings. Behavior seems worse at night. I would favor increasing night time Haldol dose, and following EKGs. Chaz Hernandez MD, FACS Damage Prevention Coordinator, Trauma, Critical Care and Acute Care Surgery [...] Dallin Bourgeois MD Neurosurgery PGY1 | Pager #[phone] hristian Kelley PA-C - 09/27/2017 7:31 AM [...] able to have a linear conversation briefly ACCOUNTS RECEIVABLE CLERK requesting repeat barium swallow Current meds: I [...] incision healing , suture c/d/I Neck: in PRODUCTION OR PLANT ENGINEER Respiratory: unlabored on room air, lungs [...] AMS & delirium - numerous evaluations by ACCOUNTS RECEIVABLE CLERK with trials of PO - now s/p [...] . - C-collar at all times, use PRODUCTION OR PLANT ENGINEER when OOB - Follow-up with Neurosurgery on 10/21 with repeat X-rays #Blunt abdominal trauma #Splenic laceration S/p laparotomies x2. Fascia closed 09/02 Wound vac removed by patient, but wound remains duke n/dry/intact. [place] removed 09/17. #Left hemothorax Chest tube placed [...] cotinue TPN for now. EM CUNNINGHAM MD [facility] [address] [place] [address] Christian Kelley PA-C - 09/26/2017 6:48 AM [...] posterior scalp crani incision c/d/I Neck: in [place] collar Respiratory: unlabored on room air CV: [...] AMS & delirium - numerous evaluations by ACCOUNTS RECEIVABLE CLERK with trials of PO - now s/p [...] . - C-collar at all times, use PRODUCTION OR PLANT ENGINEER when OOB - Follow-up with Neurosurgery [...] Continue NPO and TPN. EM CUNNINGHAM MD [facility] [address] [place] [address] Christian Kelley PA-C - 09/25/2017 7:49 AM [...] HEENT: EOMs intact to exam Neck: in PRODUCTION OR PLANT ENGINEER brace Respiratory: unlabored on room air [...] AMS & delirium - numerous evaluations by ACCOUNTS RECEIVABLE CLERK with trials of PO - now s/p [...] . - C-collar at all times, use PRODUCTION OR PLANT ENGINEER when OOB - Follow-up with Neurosurgery [...] LFTS wnl. Continue TPN. EM CUNNINGHAM MD [facility] [address] [place] [address] Christian Kelley PA-C - 09/24/2017 11:07 AM [...] with agitation Having difficulty swallowing again - ACCOUNTS RECEIVABLE CLERK to re-eval and obtain barium swallow Current [...] HEENT: EOMs intact to exam Neck: in PRODUCTION OR PLANT ENGINEER brace Respiratory: CTA bilaterally, lungs symmetrical, equal chest wall rise, no retractions CV: RRR GI: non distended, last BM 09/23 : good urine output Extremities: SCD's in place, no peripheral edema, wiggles toes and toes pink and well perfu sed Musculoskeletal: 5/5 strength in bilateral cutting machine tender decorative (but with slightly weaker on left) , [...] likely 2/2 AMS & delirium - Failed ACCOUNTS RECEIVABLE CLERK eval 09/19 & 09/20, made NPO & dobhoff reinserted 09/21 but pulled overnight - Per ACCOUNTS RECEIVABLE CLERK on 09/21, ok for therapeutic pureed with [...] . - C-collar at all times, use PRODUCTION OR PLANT ENGINEER when OOB - Follow-up with Neurosurgery on 10/21 with repeat X-rays #Blunt abdominal trauma #Splenic laceration S/p laparotomies x2. Fascia closed 09/02 Wound vac removed by patient, but wound remains duke n/dry/intact. [place] removed 09/17. #Left hemothorax Chest tube placed [...] Start abx for dehiscence. EM CUNNINGHAM MD [facility] [address] [place] [address] Ginette Campos PA-C - 09/24/2017 9:31 AM [...] 4 extremities Unable to assess drift. Motor: Flexible Machining System Machinist Bicep Tricep Delt R 5 5 5 [...] further questions or concerns. Ginette Campos PA-C [facility] [address] [place] [phone] ELLGabriel Atkins AGACNP - 09/23/2017 6:32 AM [...] hiscence, draining minimal serosang fluid Neck: in PRODUCTION OR PLANT ENGINEER brace Respiratory: unlabored on room air [...] likely 2/2 AMS & delirium - Failed ACCOUNTS RECEIVABLE CLERK eval 09/19 & 09/20, made NPO & dobhoff reinserted 09/21 but pulled overnight - Per ACCOUNTS RECEIVABLE CLERK on 09/21, ok for therapeutic pureed with [...] . - C-collar at all times, use PRODUCTION OR PLANT ENGINEER when OOB - Follow-up with Neurosurgery on 10/21 with repeat X-rays #Blunt abdominal trauma #Splenic laceration S/p laparotomies x2. Fascia closed 09/02 Wound vac removed by patient, but wound remains duke n/dry/intact. [place] removed 09/17. #Left hemothorax Chest tube placed [...] Sherine Sarmiento, [facility] [place] [phone] Dallin Deshpande MD - 09/22/2017 8:03 AM [...] Dallin Bourgeois MD Neurosurgery PGY1 | Pager #[phone] ELLSherine Atkins AGACNP - 09/22/2017 6:52 AM PDTFormatting [...] 24hr events: - Therapeutic purees initiated by ACCOUNTS RECEIVABLE CLERK yesterday - Trickle feeds via Dobbhoff, pt pulled Dobbhoff yesterday evening- not replaced - APPLIANCE ASSEMBLER called around 2130 for new left [...] sluggish. Slight left facial droop Neck: in [place] collar Respiratory: unlabored on room air CV: [...] likely 2/2 AMS & delirium - Failed ACCOUNTS RECEIVABLE CLERK eval 09/19 & 09/20, made NPO & dobhoff reinserted 09/21 but pulled overnight - Per ACCOUNTS RECEIVABLE CLERK on 09/21, ok for therapeutic pureed with [...] . - C-collar at all times, use PRODUCTION OR PLANT ENGINEER when OOB - Follow-up with Neurosurgery [...] Sherine Sarmiento, [facility] Pg [phone] Associated attestation - Nubia Nieto MD,MPH - 09/22/2017 9:39 PM PDTATTENDING PROGRES S NOTE I personally interviewed and examined the patient today with the trauma team and the nurse practitioner. I participated in the development of and agree with the assessment and plan a s outlined [facility]. Adding seroquel qHS for sleep hygiene. Nubia Nieto MD, MPH Trauma, Critical Care & Acute Care Surgery [facility] [phone] Sami Black - 09/21/2017 10:25 PM PDTBrief [...] in the morning. Plan: -neuro checks; page [phone] for any decline in neurological examination -pain control -Hard C collar at all times and place PRODUCTION OR PLANT ENGINEER prior to mobilizing OOB. Anticipated duration of Collar/PRODUCTION OR PLANT ENGINEER is 12 weeks -repeat CT head for any new decline in neurological exam and page [phone] -NPO at midnight tonight -please hold tonight's planned dose of Lovenox -further recommendations in the morning Sami Black MD, PhD PGY-3 Resident Neurosurgery [id number] signed by Sami Black at 09/21/2017 10:50 PM PDTCleSherine estrella [facility] - 09/21/2017 [...] Provena placem ent 24hr events: - Failed ACCOUNTS RECEIVABLE CLERK eval again yest morning, continued NPO - [...] reactive. Dobbhoff tube in place Neck: in [place] collar Respiratory: unlabored on room air CV: [...] likely 2/2 AMS & delirium - Failed ACCOUNTS RECEIVABLE CLERK eval 09/19 & 09/20, made NPO & dobhoff reinserted yesterday - Trickle feeds started this am at 20ml/hr, increase very slowly by 10ml every 12 hrs to go al of 75 due to hx of mesenteric hematomas and previous inability to tolerate TF - Per ACCOUNTS RECEIVABLE CLERK today, ok for therapeutic pureed with nectar [...] . - C-collar at all times, use PRODUCTION OR PLANT ENGINEER when OOB - Follow-up with Neurosurgery [...] & delirium [place] [phone] Associated attestation - Fidelina Shields MD - 09/21/2017 9:36 PM PDTAttending: I saw and examined Diogenes Temple ([id number]) with KESHAWN Alexander on mornin g rounds [...] enough to re-trial PO. Fidelina Shields MD Damage Prevention Coordinator Division of Trauma, Critical Care and Acute Care Surgery Office: [phone] Pager: [phone] Sherine Sarmiento AGACNP - 09/20/2017 7:41 AM [...] haldol given yesterday afternoon for agitation - ACCOUNTS RECEIVABLE CLERK paged to re-eval in afternoon after concern for aspiration, made NPO by ACCOUNTS RECEIVABLE CLERK - DARNELL SOLANO Current meds: I have [...] right pupil 3 and reactive Neck: in [place] collar Respiratory: unlabored on room air CV: [...] thick/pureed d iet. Made NPO yesterday by ACCOUNTS RECEIVABLE CLERK after concern for aspiration. This is likely 2/2 waxing & wan ing delirium & AMS - ACCOUNTS RECEIVABLE CLERK re-eval today recommend continue NPO d/t overt clinical signs of aspiration - Place Dobbhoff tube and restart feeds, slowly progress to goal - Stop TPN when tolerating tube feeds - ACCOUNTS RECEIVABLE CLERK will follow closely, as his AMS improves [...] . - C-collar at all times, use PRODUCTION OR PLANT ENGINEER when OOB - Follow-up with Neurosurgery on 10/21 with repeat X-rays #Blunt abdominal trauma #Splenic laceration S/p laparotomies x2. Fascia closed 09/02 Wound vac removed by patient, but wound remains duke n/dry/intact. [place] removed 09/17. #Left hemothorax Chest tube placed [...] & delirium i [place] [phone] Associated attestation - Fidelina Shields MD - 09/20/2017 9:34 PM PDTAttending: I saw and examined Diogenes Temple ([id number]) with KESHAWN Alexander on mornin g rounds [...] dispo planning when able. Fidelina Shields MD Damage Prevention Coordinator Division of Trauma, Critical Care and Acute Care Surgery Office: [phone] Pager: [phone] Mary Medrano MD,MPH - 09/19/2017 6:22 AM [...] downgraded from thin to thick liquids by ACCOUNTS RECEIVABLE CLERK Current meds: I have independently reviewed current [...] intact, small Right fluctuant pseudomeningocele Neck: in [place] collar Respiratory: unlabored on room air CV: [...] DHT on09/19. - Cleared for diet by ACCOUNTS RECEIVABLE CLERK, tolerating purees, 749 Calories yesterday - Restart Calorie count: if taking >700 again will be OK for full po diet, otherwise replac e DHT and restart TF - Stop TPN tomorrow regardless - Still considering repeat CT abdomen/pelvis #Dysphagia DHTreplaced overnight 09/07. TF held due to emesis and possible ileus, aspiration risk. DH T pulled overnight on 09/18 - ACCOUNTS RECEIVABLE CLERK as able Resolved or chronic issues/Plan: #BIG 3 TBI #Right synthetic cranioplasty Neurosurgery consulted. Non-operative management. Last head CT 09/12 stable. Expected pseudo meningocele. Left-sided deficits consistent with baseline. - Stat head CT for any neurologic decline #C7 bilateral lamina fractures #C6-T2 spinous process fractures Neurosurgery consulted. Non-operative management. Upright cervical X-rays completed on 09/14 . - C-collar at all times, use PRODUCTION OR PLANT ENGINEER when OOB - Follow-up with Neurosurgery [...] M.D., M.P.H. Neurological Surgery Resident PGY-1 Pager: [phone] Associated attestation - Fidelina Shields MD - 09/19/2017 1:36 PM PDTAttending: I saw and examined Diogenes Temple ([id number]) with the residents on morning rounds 09/19/17 and agree with the assessment and plan as outlined in this note and participated in the plan aashish of care. Improving po intake, will titrate TPN. Plan to DC TPN tomorrow and transition to PO vs PO + TF depending on calorie counts. Once of restraints will begin looking for placement. Fidelina Shields MD Damage Prevention Coordinator Division of Trauma, Critical Care and Acute Care Surgery Office: [phone] Pager: [phone] Mary Medrano MD,MPH - 09/18/2017 6:17 AM [...] fluctuant pseudomeningocele,Dobhoff tubein p lace Neck: in [place] collar Respiratory: unlabored on room air CV: [...] holding TF - Cleared for diet by ACCOUNTS RECEIVABLE CLERK, tolerating small quantities of purees - Will need repeat CT A/P within 1-2 days #Hypervolemia I&O approaching even. Appears to have been auto-diuresing. - Continue to monitor urine output - Monitor electrolytes, replete prn #Dysphagia DHTreplaced overnight 09/07. TF held due to emesis and possible ileus, aspiration risk. - ACCOUNTS RECEIVABLE CLERK as able #C7 bilateral lamina fractures #C6-T2 spinous process fractures Neurosurgery consulted. Non-operative management. Upright cervical X-rays completed on 09/14 . - C-collar at all times, use PRODUCTION OR PLANT ENGINEER when OOB - Follow-up with Neurosurgery [...] by patient, but wound remains duke n/dry/intact. [place] removed 09/17. #Left hemothorax Chest tube placed [...] M.D., M.P.H. Neurological Surgery Resident PGY-1 Pager: [phone] signed by Fidelina Shields MD at 09/19/2017 3:58 PM PDT Associated attestation - Fidelina Shields MD - 09/19/2017 3:58 PM PDTAttending: I saw and examined Diogenes Temple ([id number]) with the residents on morning rounds 09/18/17 and agree with the assessment and plan as outlined in this note and participated in the plan aashish of care. Fidelina Shields MD Damage Prevention Coordinator Division of Trauma, Critical Care and Acute Care Surgery Office: [phone] Pager: [phone] Mary Medrano MD,MPH - 09/17/2017 6:26 AM [...] fluctuant pseudomeningocele,Dobhoff tubein p lace Neck: in [place] collar Respiratory: unlabored on room air CV: [...] holding TF - Cleared for diet by ACCOUNTS RECEIVABLE CLERK, tolerating small quantities of purees #Hypervolemia I&O approaching even. Appears to have been auto-diuresing. - Continue to monitor urine output - Monitor electrolytes, replete prn #Dysphagia DHTreplaced overnight 09/07. TF held due to emesis and possible ileus, aspiration risk. - ACCOUNTS RECEIVABLE CLERK as able #C7 bilateral lamina fractures #C6-T2 spinous process fractures Neurosurgery consulted. Non-operative management. Upright cervical X-rays completed on 09/14 . - C-collar at all times, use PRODUCTION OR PLANT ENGINEER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 Interface - 10/28/2017 9:21 AM [...] Note | + + | Service Account, RadiD[employer] Res In Interface - 10/27/2017 6:29 PM [...] | | | patient, procedure, equipment, client technical support associate and site/side marked as | | | [...] vein. Catheter lot number: | | | [id number] with a length of 55 cm was [...] PAWANQUAM | [address] | [place], [place] | | | [facility] | [address] | [address] | | | TESTS | | | [...] DEPT OF | [address] | [place], [place] | | | CARDIOLOGY | [address] | [address] | | + + + + + [...] PICKETT | [address] | [place], [place] | | | [facility] | [address] | [address] | | | TESTS | | | [...] | + + + + + | [facility] | [address] | [place] [address] | | | SERVICES, CORE [...] the MDRD equation recommended by the | [facility] | | National Kidney [...] | + + + + + | [facility] | [address] | [place] [address] | | | SERVICES, CORE | VILMA [...] (H) | 70 - 99 mg/dL | [facility] - | | | [...] PICKETT | [address] | [place], [place] | | | [facility] | [address] | [address] | | | TESTS | | | [...] MARQUAM | [address] | [place], [place] | | | [facility] | [facility] | [address] | | | TESTS | | | [...] - PIYUSH | [address] | [place], [place] | | | [facility] | [address] | [address] | | | TESTS | | | [...] | [address] | [place] [address] | | | NATALEE WORTHINGTON | VILMA [...] | + + + + + | Benefitter | [address] | [place] [address] | | | SERVICES, NATALEE | VILMA [...] + + + + | [facility] | [address] | [place], [place] | | | [facility] | [facility] | [address] | | | TESTS | | | [...] the MDRD equation recommended by the | [facility] | | National Kidney Disease Education Program. [...] | + + + + + | [facility] | [address] [facility] [facility] | [place] [address] | | | NATALEE WORTHINGTON | VILMA [...] | [facility] | [address] | [address] | | | TESTS | | | [...] DEPT OF | [address] | [place], [place] | | | CARDIOLOGY | [address] | [address] | | + + + + + [...] | | [facility] | [address] | [address] | | | TESTS | | | [...] + | [facility] | [address] | [place], [place] | | | CARDIOLOGY | [address] | [address] | | + + + + + [...] | + + + + + | [facility] | [address] | [place] [address] | | | ELIN, NATALEE | VILMA [...] + | [facility] | [address] | [place], [place] [address] | | | [place] | | | | + + + [...] [facility] | [address] | [place] [address] | | | SERVICES, CORE | VILMA [...] | + + + + + | [facility] | [address] | [place] [address] | | | SERVICES, CORE | VILMA [...] | + + + + + | [facility] | [address] | [place] [address] | | | SERVICES, CORE | PARK [...] | [address] | [place] [address] | | | SERVICES, CORE | PARK [...] (H) | 56 - 119 U/L | [facility] | | | | | | LABORATORY [...] [facility] | [address] | [place] [address] | | | SERVICES, CORE | PARK [...] | [address] | [place] [address] | | | SERVICES, CORE | VILMA [...] | + + + + + | [facility] | [address] [facility] [facility] | [place] [address] | | | SERVICES, CORE [...] | + + + + + | [facility] | [address] [facility] | [place] [address] | | | SERVICES, CORE | PARK [...] | + + + + + | [facility] | [address] | [place] [address] | | | SERVICES, CORE | PARK [...] | [address] | [place] [address] | | | SERVICES, NATALEE | VILMA [...] | + + + + + | [facility] | [address] | [place] [address] | | | SERVICES, CORE | [address] | | | + + + + + CHELE LINE (10/24/2017 4:01 PM PDT) + + [...] | | correct patient, procedure, equipment, client technical support associate and site/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 Catheter lot number: [id number] with a length of 55 | | [...] 1 VIEW HISTORY: PICC placed-pt ready. | SELENA | | COMPARISON: October 12, 2017 FINDINGS: [...] MARQU[facility] | [address] | [place], [place] | | | [facility] | [address] | [address] | | | TESTS | | | [...] | | Surgical Critical Care, PGY7 Pager: [phone] | | + + + CAPILLARY BLOOD [...] | [facility] | [address] | [address] | | | TESTS | | | [...] PICKETT | [address] | [place], [place] | | | [facility] | [facility] | [address] | | | TESTS | | | [...] | + + + + + | [facility] | [address] | [place] [address] | | | SERVICES, CORE | PARK [...] | + + + + + | [facility] | [address] | [place] [address] | | | SERVICES, NATALEE | VILMA [...] SELENA PICKETT | [address] | [place], [place] | | | [facility] | [address] | [address] | | | TESTS | | | [...] | + + + + + | [facility] | [address] | [place] [address] | | | SERVICES, CORE | VILMA [...] | + + + + + | [facility] | [address] | [place] [address] | | | SERVICES, CORE | [address] | | | + + + + + 12 LEAD ECG (10/23/2017 9:46 AM PDT) + + + + + + | Component | Value | Ref Range | Performed | Pathologist | | | | | At | Signature | + + + + + + | VENTRICULAR | 62 | bpm | [facility] | | | RATE | | [...] DEPT OF | [address] | [place], [place] | | | CARDIOLOGY | [address] | [address] | | + + + + + IR GASTROSTOMY TUBE EXCHANGE (10/22/2017 2:42 PM PDT) + + | Specimen | + + | | + + + + + | Narrative | Performed At | + + + | Procedure: Gastrostomy tube exchange Primary attending | [facility]LENA | | venetian blind cleaner: Shade Nix M.D. Preoperative diagnosis: | RADIOLOGY VOICE | | Malfunctioning Gastrostomy tube Postoperative diagnosis: Same | RECOGNITION | | Operations: Operation 1. Removal of existing Gastrostomy tube | | | over a guide wire Operation 2. Placement of 24 Luxembourger GABRIEL | | | gastrostomy over guide [...] a stiff glide wire the new 24 Luxembourger gastrostomy tube was | | | inserted. [...] Procedure: | | Gastrostomy tube exchangePrimary attending venetian blind cleaner: Shade Nix | | BrynPreoperative diagnosis: Malfunctioning Gastrostomy tubePostoperative diagnosis: | | SameOperations:Operation 1. Removal of existing Gastrostomy tube over a guide | | wireOperation 2. Placement of 24 Luxembourger GABRIEL gastrostomy over guide wireNo sedation was [...] glide wire the | | new 24 Luxembourger gastrostomy tube was inserted. The position of [...] stiff g lide wire the new 24 Luxembourger | |gastrostomy tube was inserted. The position [...] Note | + + | Service Account, [employer] In Interface - 10/22/2017 10:34 AM PDT [...] DEPT OF | [address] | [place], [place] | | | CARDIOLOGY | [address] | [address] | | + + + + + [...] | + + + + + | [facility] | [address] | [place] [address] | | | SERVICES, CORE | VILMA [...] the MDRD equation recommended by the | [facility] | | National Kidney Disease Education Program. [...] | [address] | [place] [address] | | | SERVICES, CORE | VILMA [...] + | [facility] DEPT OF | [address] | [place], [place] | | | CARDIOLOGY | [address] | [address] | | + + + + + [...] the MDRD equation recommended by the | [facility] | | National Kidney Disease Education Program. [...] | + + + + + | [facility] | [address] | [place] [address] | | | SERVICES, CORE | PARK [...] | [address] | [place] [address] | | | SERVICES, CORE | PARK [...] GEET OF | [address] | [place], [place] | | | CARDIOLOGY | [address] | [address] | | + + + + + [...] | [address] | [place] [address] | | | SERVICES, CORE | PARK [...] the MDRD equation recommended by the | [facility] | | National Kidney [...] | + + + + + | [facility] | [address] | [place] [address] | | | NATALEE WORTHINGTON | VILMA [...] + | [facility] | [address] | [place], [place] | | | CARDIOLOGY | [address] | [address] | | + + + + + [...] the MDRD equation recommended by the | [facility] | | National Kidney [...] | + + + + + | [facility] | [address] | [place] [address] | | | SERVICES, CORE [...] | [address] | [place] [address] | | | SERVICES, NATALEE | VILMA [...] [place], [place] | | | CARDIOLOGY | [address] | [address] | | + + + + + [...] | + + + + + | [facility] | [address] | [place] [address] | | | NATALEE WORTHINGTON | VILMA [...] | + + + + + | [facility] | [address] | [place] [address] | | | SERVICES, CORE | VILMA [...] Note | + + | Service Account, [employer] Res In Interface - 10/15/2017 3:58 PM [...] DEPT OF | [address] | [place], [place] | | | CARDIOLOGY | [address] | [address] | | + + + + + [...] RAPHAELAM | [address] | [place] | | | [facility] | [address] | [address] | | | TESTS | | | [...] | + + + + + | [facility] | [address] | [place] [address] | | | SERVICES, CORE | VILMA [...] MARQUAM | [address] | [place], [place] | | | [facility] | [address] | [address] | | | TESTS | | | [...] + | [facility] | [address] [facility] | [place], [place] | | | CARDIOLOGY | [address] | [address] | | + + + + + [...] | + + + + + | [facility] | [address] | [place] [address] | | | NATALEE WORTHINGTON | P[address] [...] | + + + + + | Benefitter | [address] | [place] [address] | | | SERVICES, CORE | PARK [...] | + + + + + | [facility] | [address] | [place] [address] | | | SERVICES, NATALEE | VILMA [...] (H) | 70 - 99 mg/dL | [facility] - | | | GLUCOSE, | | [...] PICKETT | [address] | [place], [place] | | | [facility] | [address] | [address] | | | TESTS | | | [...] MARQUAM | [address] | [place] | | | [facility] | [address] | [address] | | | TESTS | | | [...] | + + + + + | [facility] | [address] | [place] [address] | | | SERVICES, CORE | PARK [...] the MDRD equation recommended by the | [facility] | | National Kidney Disease Education Program. [...] | + + + + + | [facility] | [address] | [place] [address] | | | SERVICES, [facility] | [address] | | | + + + + + OPERATION RECORD (10/12/2017 8:50 PM PDT) + + | Procedure Note | + + | Pilar Cotto MD - 10/12/2017 8:50 PM PDT Date of Service: 10/12/2017 | | Attending Surgeon: Chaz Hernandez MD Loft Patternmaker(s): Randell Dixon M.D., | | fellow. George [...] saline. We then | | placed a 19-Luxembourger drain deep into the abscess cavity, tracking [...] case. Pilar Cotto, | | Edi Hernandez MDKMSalvador/MODLDD: 10/12/2017 19:50:06DT: 10/12/2017 20:50:54Job #: | | [id number] | + + X-RAY PORTABLE CHEST 1 [...] Note | + + | Service Account, [employer] In Interface - 10/13/2017 9:04 AM PDT [...] 10/13/2017 9:03 AM Preliminary: Gurpreet | | Ricardo Dunne MD Dictation initiated: Gurpreet Dunne MD [...] P[facility]ETT | [address] | [place], [place] | | | [facility] | [address] | [address] | | | TESTS | | | [...] | [address] | [place] [address] | | | SERVICES, CORE | PARK [...] the MDRD equation recommended by the | [facility] | | National Kidney Disease Education Program. [...] | + + + + + | [facility] | [address] | [place] [address] | | | NATALEE WORTHINGTON | VILMA [...] | + + + + + | [facility] | [address] | [place] [address] | | | NATALEE WORTHINGTON | VILMA [...] DEPT OF | [address] | [place], [place] | | | CARDIOLOGY | [address] | [address] | | + + + + + [...] + | [facility] DEPT OF | [address] | [place], [place] | | | CARDIOLOGY | [address] | [address] | | + + + + + [...] | + + + + + | [facility] | [address] | [place] [address] | | | SERVICES, CORE | [address] | | | + + + + + MAGNESIUM, PLASMA (10/11/2017 12:15 AM PDT) + +-------+ + + + | Component | Value | Ref Range | Performed | Pathologist | | | | | At | Signature | + +-------+ + + + | MAGNESIUM,P | 1.7 | 1.6 - 2.6 mg/dL | [facility] | | | LASMA | | | [...] | [address] | [place] [address] | | | SERVICES, NATALEE | VILMA [...] | + + + + + | [facility] | [address] | [place] [address] | | | SERVICES, NATALEE | [address] | | | + + + + + PROCEDURE NOTE (10/10/2017 10:00 PM PDT) + + + | Narrative | Performed At | + + + | Darius Link MD 10/12/2017 11:11 AM OPERATIVE REPORT | | | DATE OF OPERATION: 10/10/2017 ATTENDING SURGEON: 1. Dr. Hernandez | | | MANAGER MULTICULTURAL: 1. Darius Link MD INDICATIONS: Dysphagia | | | and need for equipment operator intermodal yard nutrition access PREOPERATIVE DIAGNOSIS: | | | 1.Dysphagia and need for equipment operator intermodal yard nutrition access | | | POSTOPERATIVE DIAGNOSIS: [...] At | + + + | Darius iLnk MD 10/10/2017 12:54 PM INPATIENT BRIEF | [...] | | | [place] [id number] Chief Resident | | | Neurosurgery | [...] | [address] | [place] [address] | | | SERVICES, CORE | PARK [...] the MDRD equation recommended by the | [facility] | | National Kidney [...] | + + + + + | [facility] | [address] | [place] [address] | | | NATALEE WORTHINGTON | VILMA [...] | [address] | [place] [address] | | | NATALEE WORTHINGTON | [address] | | | + + + + + OPERATION RECORD (10/10/2017 12:40 PM PDT) + + | Procedure Note | + + | Magdiel Stock MD - 10/10/2017 12:40 PM PDT Date of Service: 10/10/2017 Attending | | Surgeon: Magdiel Stock MD Loft Patternmaker(s): Cecilia Jackson, | | . Preoperative Diagnoses: [...] was also sent.Complications: None.Drains: | | Subgaleal KNEDALL drain to suction.Disposition: Direct to the neurologic [...] is a 67-year-old male. Please see [facility] for full details. He | | was [...] of purulent film, which was removed with jokers and Susan 1. We also used a [...] | the note for this encounter.Sonal Nunez [facility] [id number] [facility] | | [place] [id number] Orina, MDFAH/MODLDD: | | 10/10/2017 11:52:15DT: 10/10/2017 12:40:41Job #: [id number] | | | | | |I was present for the critical portions of the procedure as described in the note for this encounter. | | | |Magdiel Stock MD | | | |Magdiel Stock MD | |[address] | |[address] | |[facility] | |[place] [address] | |[phone] | | | | | |Magdiel Stock MD | |JAYLAN/DUC | | | | | | /[id number] | + + X-RAY ABDOMEN 1 VIEW [...] + | [facility] | [address] | [place] [address] | | | [place] | | | [...] + | [facility] | [address] | [place] [address] | | | [place] | | | [...] Gram Stain: No squamous epithelial cells | [place] | | Many polymorphonuclear cells No organisms seen | | + + + + + + + + | Performing | Address | City/State/Zipcode | Phone Number | | Organization | | | | + + + + + | [facility] | [address] | [place] [address] | | | [place] | | | [...] + | [facility] | [address] | [place] [address] | | | [place] | | | [...] + | [facility] | [address] | [place] [address] | | | [place] | | | [...] Gram Stain: No squamous epithelial cells | [place] | | Many polymorphonuclear cells No organisms seen | | + + + + + + + + | Performing | Address | City/State/Zipcode | Phone Number | | Organization | | | | + + + + + | [facility] | [address] | [place] [address] | | | [place] | | | | + + + [...] | + + + + + | [facility] | [address] | [place] [address] | | | [place] | | | | + + + [...] Gram Stain: No squamous epithelial cells | [facility] | | Few polymorphonuclear cells No organisms seen | | + + + + + + + + | Performing | Address | City/State/Zipcode | Phone Number | | Organization | | | | + + + + + | [facility] | [address] | [place] [address] | | | [facility] | | | | + + + [...] | | cells No organisms seen | [place] | + + + + + + + + | Performing | Address | City/State/Zipcode | Phone Number | | Organization | | | | + + + + + | [facility] | [address] | [place] [address] | | | [place] | | | | + + + [...] + | [facility] | [address] | [place] [address] | | | [facility] | | | | + + + [...] 1+ Pseudomonas aeruginosa Refer to culture | [facility] - | | collected 10/10/17 at 0903 [...] + | [facility] | [address] | [place] [address] | | | [place] | | | | + + + [...] + | [facility] | [address] | [place] [address] | | | [place] | | | | + + + [...] + | [facility] | [address] | [place] [address] | | | [facility] | | | | + + + [...] Gram Stain: No squamous epithelial cells | [place] | | Moderate polymorphonuclear cells No organisms seen | | + + + + + + + + | Performing | Address | City/State/Zipcode | Phone Number | | Organization | | | | + + + + + | [facility] | [address] | [place] [address] | | | [place] | | | | + + + [...] + | [facility] | [address] | [place] [address] | | | [place] | | | | + + + [...] + | [facility] | [address] | [place] [address] | | | [place] | | | [...] + | [facility] | [address] | [place] [address] | | | [place] | | | [...] + | [facility] | [address] | [place] [address] | | | [place] | | | | + + + [...] | + + + + + | [facility] | [address] | [place] [address] | | | SERVICES, CORE | VILMA [...] | [address] | [place] [address] | | | NATALEE WORTHINGTON | VILMA [...] | + + + + + | [facility] | [address] | [place] [address] | | | NATALEE WORTHINGTON | [address]ARK [...] | + + + + + | [facility] | [address] | [place] [address] | | | SERVICES, CORE | VILMA [...] GEET OF | [address] | [place] | | | CARDIOLOGY | [facility] | [address] | | + + + + + [...] + + + + | PRODUCT | [id number] | | [facility] | | | UNIT [...] + + + + | EXPIRATION | [id number] | | [facility] | | | DATE [...] + + + + | BLOOD | [id number] | | [facility] | | | PRODUCT [...] | [address] | [place] [address] | | | SERVICES, | [address] [...] + + + + | PRODUCT | [id number] | | [facility] | | | UNIT [...] + + + + | EXPIRATION | [id number] | | [facility] | | | DATE [...] + + + + | BLOOD | [id number] | | [facility] | | | PRODUCT [...] | [address] | [place] [address] | | | SERVICES, | [address] [...] | + + + + + | [facility] | [address] | [place] [address] | | | SERVICES, | [address] [...] | [address] | [place] [address] | | | SERVICES, | [address] [...] | + + + + + | [facility] | [address] | [place] [address] | | | SERVICES, | [address] [...] | + + + + + | [facility] | [address] | [place] [address] | | | SERVICES, CORE | [address] | | | + + + + + 12 LEAD ECG (10/09/2017 10:03 AM PDT) + + + + + + | Component | Value | Ref Range | Performed | Pathologist | | | | | At | Signature | + + + + + + | VENTRICULAR | 61 | bpm | [facility] | | | RATE | | [...] DEPT OF | [address] | [place], [place] | | | CARDIOLOGY | [address] | [address] | | + + + + + [...] Note | + + | Service Account, [employer] In Interface - 10/08/2017 10:47 AM PDT [...] [facility] | [address] | [place], [place] | | | [facility] | [facility] | [address] | | | TESTS | | | [...] [facility] | [address] | [place] [address] | | | NATALEE WORTHINGTON | VILMA [...] | + + + + + | [facility] | [address] [facility] [address] | [place] [address] | | | SERVICES, CORE | [address] [...] | + + + + + | [facility] | [address] | [place] [address] | | | SERVICES, CORE | [address] [...] PICKETT | [address] | [place], [place] | | | [facility] | [facility] | [address] | | | TESTS | | | [...] RAPHAELAM | [address] | [place], [place] | | | [facility] | [facility] | [address] | | | TESTS | | | [...] (H) | 70 - 99 mg/dL | [facility] - | | | [...] | | [facility] | [address] | [address] | | | TESTS | | | [...] | | [facility] | [facility] | [address] | | | TESTS | | | [...] RAPHAELAM | [address] | [place], [place] | | | [facility] | [facility] | [address] | | | TESTS | | | [...] | + + + + + | [facility] | [address] | [place] [address] | | | SERVICES, CORE | VILMA [...] | [address] | [place] [address] | | | SERVICES, CORE | PARK [...] (H) | 70 - 99 mg/dL | [facility] | | | PLASMA | | [...] the MDRD equation recommended by the | [facility] | | National Kidney [...] | + + + + + | [facility] | [address] | [place] [address] | | | ELIN, NATALEE | VILMA [...] 99 | 70 - 99 mg/dL | [facility] - | | | [...] - [facility] | [address] | [place], [place] | | | GL[facility]IA GENAO [facility] | [facility] | [address] | | | TESTS | | | [...] [facility] | [address] | [place], [place] | | | [facility] | [address] | [address] | | | TESTS | | | [...] M[facility] OF | [address] | [place], [place] | | | CARDIOLOGY | [address] | [address] | | + + + + + [...] - RAPHAEL[facility] | [address] | [place], [place] | | | [facility] | [address] | [address] | | | TESTS | | | [...] | + + + + + | [facility] | [address] | [place] [address] | | | SERVICES, CORE | PARK [...] + + | [facility] | [address] [address] [address] | [place] [address] | | | SERVICES, CORE | PARK [...] | + + + + + | [facility] | [address] | [place] [address] | | | [facility], NATALEE | [address] | | | + + + + + CAPILLARY BLOOD GLUCOSE (NO CHG), POC (10/06/2017 6:07 AM PDT) + +---------+ + + + | Component | Value | Ref Range | Performed | Pathologist | | | | | At | Signature | + +---------+ + + + | BLOOD | 127 (H) | 70 - 99 mg/dL | [facility] - | | | [...] PICKETT | [address] | [place], [place] | | | [facility] | [address] | [address] | | | TESTS | | | [...] | | [facility] GE[facility] | [address] | [address] | | | TESTS | | | [...] | | [facility] GENAO [facility] | [facility] | [address] | | | TESTS | | | [...] (H) | 70 - 99 mg/dL | [facility] - | | | [...] P[facility] | [address] | [place], [place] | | | [facility] | [address] | [address] | | | TESTS | | | [...] DEPT OF | [address] | [place], [place] | | | CARDIOLOGY | [address] | [address] | | + + + + + [...] | + + + + + | [facility] | [address] | [place] [address] | | | SERVICES, CORE | [address] | | | + + + + + MAGNESIUM, PLASMA (10/05/2017 8:38 AM PDT) + +-------+ + + + | Component | Value | Ref Range | Performed | Pathologist | | | | | At | Signature | + +-------+ + + + | MAGNESIUM,P | 1.9 | 1.6 - 2.6 mg/dL | [facility] | | | LASMA | | | [...] | [address] | [place] [address] | | | SERVICES, CORE | PARK [...] | + + + + + | [facility] | [address] | [place] [address] | | | NATALEE WORTHINGTON | PARK [...] MARQU[facility] | [address] | [place], [place] | | | [facility] | [address] | [address] | | | TESTS | | | [...] PICKETT | [address] | [place], [place] | | | [facility] GE[facility]O [facility] CARE | [address] | [address] | | | TESTS | | | [...] MARQUAM | [address] | [place], [place] | | | [facility] CARE | [address] | [address] | | | TESTS | | | [...] MARQUAM | [address] | [place], [place] | | | [facility] | [address] | [address] | | | TESTS | | | [...] + + + | [facility] | [address] | [place], [place] | | | [facility] CARE | [address] | [address] | | | TESTS | | | [...] | [address] | [place] [address] | | | NATALEE WORTHINGTON | PARK [...] | + + + + + | [facility] | [address] | [place] [address] | | | SERVICES, NATALEE | VIL[address] [...] | + + + + + | [facility] | [address] | [place] [address] | | | SERVICES, CORE | VILMA [...] | | [facility] GE[facility]O OF [facility] | [facility] | [address] | | | TESTS | | | [...] | [facility] | [facility] | [address] | | | TESTS | | | [...] | + + + + + | [facility] | [address] | [place] [address] | | | SERVICES, CORE | PARK [...] by | | | | | | Thoora,500 | | | | | | Rogelio Pickard, [facility],[place] | | | | | | [id number] | | | | | | [phone] [facility]ards[facility]. | | | | | | Gui [...] [facility] | [address] | [place], [place] | | | [facility] | | [address] | | + + + + + [...] | [address] | [place] [address] | | | SERVICES, CORE | VILMA [...] utilizing a similar TSH assay, and | NATALEE WORTHINGTON | | should be interpreted with caution. | | + + + + + + + + | Performing | Address | City/State/Zipcode | Phone Number | | Organization | | | | + + + + + | [facility] | [address] | [place] [address] | | | NATLAEE WORTHINGTON | VILMA [...] modified from | [facility] | | original payroll consultant's approved specifications. The performance | LABORATORY | | of the [facility] HIV Combo test, with or without confirmation, was not | SERVICES, | | tested in pediatric patients less than 2 years of age. [facility] | SPECIAL IMM + | | guidelines [...] | + + + + + | [facility] | [address] | [place] [address] | | | SPECIAL ELIN | VILMA [...] (H) | 70 - 99 mg/dL | [facility] - | | | [...] PICKETT | [address] | [place], [place] | | | [facility] | [address] | [address] | | | TESTS | | | [...] | | GLORIA GENAO OF [facility] | [address] | [address] | | | TESTS | | | [...] | + + + + + | [facility] | [address] | [place] [address] | | | SERVICES, CORE | [address] | | | + + + + + MAGNESIUM, PLASMA (10/03/2017 6:03 AM PDT) + +-------+ + + + | Component | Value | Ref Range | Performed | Pathologist | | | | | At | Signature | + +-------+ + + + | MAGNESIUM,P | 2.0 | 1.6 - 2.6 mg/dL | [facility] | | | LASMA [...] | [address] | [place] [address] | | | SERVICES, CORE | VILMA [...] | + + + + + | [facility] | [address] | [place] [address] | | | SERVICES, NATALEE | VILMA [...] MARQUAM | [address] | [place], [place] | | | [facility] | [address] | [address] | | | TESTS | | | [...] PICKETT | [address] | [place] | | | [facility] | [address] | [address] | | | TESTS | | | [...] + | [facility] DEPT OF | [address] | [place], [place] | | | CARDIOLOGY | [address] | [address] | | + + + + + [...] report as now presented. Final signature: Marcelo Radford | | MD Mlili 10/02/2017 2:06 PM Preliminary: Marcelo Morley MD | | | Dictation initiated: Marcelo Morley MD 10/02/2017 2:04 PM | | + + + + + | Procedure Note | + + | Nette Galeas, Radiant Res In Interface - 10/02/2017 2:07 [...] PICKETT | [address] | [place], [place] | | | [facility] | [address] | [address] | | | TESTS | | | [...] PIYUSH | [address] | [place], [place] | | | [facility] | [address] | [address] | | | TESTS | | | [...] | + + + + + | [facility] | [address] | [place] [address] | | | SERVICES, CORE | VILMA [...] | [address] | [place] [address] | | | SERVICES, CORE | VILMA [...] | + + + + + | [facility] | [address] | [place] [address] | | | SERVICES, CORE | VILMA [...] (H) | 70 - 99 mg/dL | [facility] - | | | [...] PICKETT | [address] | [place], [place] | | | [facility] CARE | [facility] | [address] | | | TESTS | | | [...] | | GLORIA GENAO OF [facility] | [address] | [address] | | | TESTS | | | [...] PICKETT | [address] | [place] | | | [facility] | [address] | [address] | | | TESTS | | | [...] | | + +---------+ + + | [facility] | | | | | [facility] | | | | [...] [address]AMBERS | [place], [place] | | | [facility] | [address] | [address] | | | TESTS | | | [...] | + + + + + | [facility] | [address] | [place] [address] | | | SERVICES, NATALEE | VILMA [...] | + + + + + | [facility] | [address] | [place] [address] | | | SERVICES, CORE | VILMA [...] the MDRD equation recommended by the | [facility] | | National Kidney [...] | + + + + + | [facility] | [address] | [place] [address] | | | SERVICES, CORE | VILMA [...] (H) | 70 - 99 mg/dL | [facility] - | | | [...] PICKETT | [address] | [place] | | | [facility] CARE | [address] | [address] | | | TESTS | | | [...] MARQUAM | [address] | [place] | | | [facility] CARE | [address] | [address] | | | TESTS | | | [...] DEPT OF | [address] | [place], [place] | | | CARDIOLOGY | [address] | [address] | | + + + + + [...] | | [facility] | [address] | [address] | | | TESTS | | | [...] PIYUSH | [address] | [place] | | | [facility] | [facility] | [address] | | | TESTS | | | [...] | + + + + + | [facility] | [address] | [place] [address] | | | SERVICES, CORE | [address] | | | + + + + + MAGNESIUM, PLASMA (09/30/2017 4:43 AM PDT) + +-------+ + + + | Component | Value | Ref Range | Performed | Pathologist | | | | | At | Signature | + +-------+ + + + | MAGNESIUM,P | 2.0 | 1.6 - 2.6 mg/dL | [facility] | | | LASMA | | | [...] | [address] | [place] [address] | | | SERVICES, NATALEE | VILMA [...] | + + + + + | [facility] | [address] | [place] [address] | | | SERVICES, NATALEE | VILMA [...] MARQUAM | [address] | [place] | | | [facility] | [facility] | [address] | | | TESTS | | | [...] | | [facility] | [facility] | [address] | | | TESTS | | | [...] PICKETT | [address] | [place] | | | [facility] C[facility] | [address] | [address] | | | TESTS | | | [...] DEPT OF | [address] | [place], [place] | | | CARDIOLOGY | [address] | [address] | | + + + + + CAPILLARY BLOOD GLUCOSE (NO CHG), POC (09/29/2017 6:19 AM PDT) + +---------+ + + + | Component | Value | Ref Range | Performed | Pathologist | | | | | At | Signature | + +---------+ + + + | BLOOD | 145 (H) | 70 - 99 mg/dL | [facility] - | | | [...] PICKETT | [address] | [place], [place] | | | [facility] | [facility] | [address] | | | TESTS | | | [...] | [address] | [place] [address] | | | SERVICES, CORE | PARK [...] the MDRD equation recommended by the | [facility] | | National Kidney [...] | [address] | [place] [address] | | | SERVICES, CORE | PARK [...] | + + + + + | [facility] | [address] | [place] [address] | | | SERVICES, CORE | VILMA [...] (H) | 70 - 99 mg/dL | [facility] - | | | GLUCOSE, | | [...] | | [facility] | [facility] | [address] | | | TESTS | | | [...] RAPHAELAM | [address] | [place], [place] | | | [facility] | [facility] | [address] | | | TESTS | | | [...] (H) | 70 - 99 mg/dL | [facility] - | | | [...] PICKETT | [address] | [place] | | | [facility] | [address] | [address] | | | TESTS | | | [...] DEPT OF | [address] | [place], [place] | | | CARDIOLOGY | [address] | [address] | | + + + + + [...] PIYUSH | [address] | [place] | | | [facility] | [facility] | [address] | | | TESTS | | | [...] | + + + + + | [facility] | [address] | [place] [address] | | | SERVICES, CORE | VILMA [...] | + + + + + | [facility] | [address] | [place] [address] | | | SERVICES, CORE | [address] [...] the MDRD equation recommended by the | [facility] | | National Kidney [...] | + + + + + | [facility] | [address] | [place] [address] | | | SERVICES, CORE | VILMA [...] (H) | 70 - 99 mg/dL | [facility] - | | | [...] + + + | [facility]LENA [facility] | [address] | [place] | | | [facility] CARE | [address] | [address] | | | TESTS | | | [...] MARQUAM | [address] | [place] | | | [facility] | [address] | [address] | | | TESTS | | | [...] PICKETT | [address] | [place] | | | [facility] | [address] | [address] | | | TESTS | | | [...] MARQUAM | [address] | [place] | | | [facility] | [facility] | [address] | | | TESTS | | | [...] | [address] | [place] [address] | | | ELIN, NATALEE | PARK [...] | [address] | [place] [address] | | | SERVICES, CORE | [address] [...] the MDRD equation recommended by the | [facility] | | National Kidney [...] | + + + + + | [facility] | [address] | [place] [address] | | | NATALEE WORTHINGTON | VILMA [...] RAPHAELAM | [address] | [place], [place] | | | [facility] | [address] | [address] | | | TESTS | | | [...] PICKETT | [address] | [place] | | | [facility] | [address] | [address] | | | TESTS | | | [...] DEPT OF | [address] | [place] | | | CARDIOLOGY | [address] | [address] | | + + + + + [...] [facility] | [address] | [place] | | | [facility] | [address] | [address] | | | TESTS | | | [...] PICKETT | [address] | [place] | | | [facility] CARE | [facility] | [address] | | | TESTS | | | [...] PIYUSH | [address] | [place] | | | [facility] | [facility] | [address] | | | TESTS | | | [...] | + + + + + | [facility] | [address] | [place] [address] | | | SERVICES, CORE | VILMA [...] | [address] | [place] [address] | | | SERVICES, CORE | PARK [...] the MDRD equation recommended by the | [facility] | | National Kidney [...] | + + + + + | [facility] | [address] | [place] [address] | | | ELIN, NATALEE | VILMA [...] (H) | 70 - 99 mg/dL | [facility] - | | | [...] PICKETT | [address] | [place], [place] | | | [facility] | [address] | [address] | | | TESTS | | | [...] Note | + + | Service Account, [employer] Res In Interface - 09/25/2017 12:32 PM [...] | + + + + + | [facility] | [address] | [place] [address] | | | SERVICES, CORE | PARK [...] | [address] | [place] [address] | | | SERVICES, CORE | [address] [...] the MDRD equation recommended by the | [facility] | | National Kidney Disease Education Program. [...] | + + + + + | [facility] | [address] | [place] [address] | | | NATALEE WORTHINGTON | VILMA [...] DEPT OF | [address] | [place], [place] | | | CARDIOLOGY | [address] | [address] | | + + + + + [...] Note | + + | Service Account, [employer] Res In Interface - 09/24/2017 4:09 PM [...] | [address] | [place] [address] | | | SERVICES, [facility] | [address] | | [...] the MDRD equation recommended by the | [facility] | | National Kidney [...] | [address] | [place] [address] | | | SERVICES, CORE | PARK [...] | + + + + + | [facility] | [address] | [place] [address] | | | SERVICES, CORE | [address] [...] | + + + + + | [facility] | [address] | [place] [address] | | | NATALEE WORTHINGTON | VILMA [...] | + + + + + | [facility] | [address] | [place] [address] | | | NATALEE WORTHINGTON | VILMA [...] | + + + + + | [facility] | [address] | [place] [address] | | | SERVICES, CORE | [address] [...] CHAMBERS | [place], [place] | | | [facility] GE[facility] | [address] | [address] | | | TESTS | | | [...] SELENA PICKETT | [address] | [place], [place] | | | [facility] | [address] | [address] | | | TESTS | | | [...] | + + + + + | [facility] | [address] | [place] [address] | | | SERVICES, CORE | VILMA [...] GEET OF | [address] | [place] | | | CARDIOLOGY | [address] | [address] | | + + + + + [...] | + + + + + | [facility] | [address] | [place] [address] | | | SERVICES, CORE | [address] | | | + + + + + MAGNESIUM, PLASMA (09/22/2017 5:48 AM PDT) + +-------+ + + + | Component | Value | Ref Range | Performed | Pathologist | | | | | At | Signature | + +-------+ + + + | MAGNESIUM,P | 1.9 | 1.6 - 2.6 mg/dL | [facility] | | | L[facility]MA | | | [...] | [address] | [place] [address] | | | SERVICES, NATALEE | VILMA [...] | + + + + + | [facility] | [address] | [place] [address] | | | SERVICES, NATALEE | VILMA [...] PIYUSH | [address] | [place] | | | [facility] | [address] | [address] | | | TESTS | | | [...] | + + + + + | [facility] | [address] | [place] [address] | | | NATALEE WORTHINGTON | VILMA [...] | + + + + + | [facility] | [address] | [place] [address] | | | SERVICES, CORE | VILMA [...] | + + + + + | [facility] | [address] | [place] [address] | | | SERVICES, CORE | [address] | | | + + + + + X-RAY ABD LTD FEEDING TUBE EVAL (09/20/2017 7:23 PM PDT) + + | Specimen | + + | | + + + + + | Narrative | Performed At | + + + | EXAM: ABD LTD FEEDING TUBE EVAL INDICATION: DHT placement | [facility] | | TECHNIQUE: Semi-upright portable view of [...] Note | + + | Service Account, [employer] Res In Interface - 09/20/2017 7:50 PM [...] Note | + + | Service Account, [employer] Res In Interface - 09/20/2017 5:17 PM [...] + + | [facility] | [address] | [place], [place] | | | CARDIOLOGY | [address] | [address] | | + + + + + [...] | + + + + + | [facility] | [address] | [place] [address] | | | ELIN, NATALEE | PARK [...] | [address] | [place] [address] | | | NATALEE WORTHINGTON | VILMA [...] | + + + + + | [facility] | [address] | [place] [address] | | | NATALEE WORTHINGTON | VILMA [...] | + + + + + | [facility] | [address] | [place] [address] | | | SERVICES, CORE | PARK [...] | [address] | [place] [address] | | | SERVICES, CORE | [address] [...] | + + + + + | [facility] | [address] | [place] [address] | | | SERVICES, NATALEE | VILMA [...] | + + + + + | [facility] | [address] | [place] [address] | | | SERVICES, CORE | PARK [...] | [address] | [place] [address] | | | NATALEE WORTHINGTON | VILMA [...] | + + + + + | [facility] | [address] | [place] [address] | | | SERVICES, CORE | VILMA [...] Note | + + | Service Account, [employer] In Interface - 09/17/2017 11:53 AM PDT [...] | + + + + + | [employer] [facility] | [address] | [place] [address] | | | SERVICES, CORE | PARK [...] | [address] | [place] [address] | | | SERVICES, CORE | VILMA [...] the MDRD equation recommended by the | [facility] | | National Kidney [...] | + + + + + | [facility] | [address] | [place] [address] | | | SERVICES, [facility] | [address] | | | + + + + + X-RAY PORTABLE CHEST PICC LINE CHECK (09/16/2017 1:11 PM PDT) + + | Specimen | + + | | + + + + + | Narrative | Performed At | + + + | EXAM: SD CHEST PICC LINE CHECK HISTORY: PICC placement | [facility] | | COMPARISON: Earlier today FINDINGS: [...] Note | + + | Service Account, [employer] In Interface - 09/16/2017 1:34 PM PDT [...] | + + + + + | [facility] | [address] | [place] [address] | | | SERVICES, CORE | PARK [...] | + + + + + | [facility] | [address] | [place] [address] | | | SERVICES, CORE | PARK [...] the MDRD equation recommended by the | [facility] | | National Kidney Disease Education Program. [...] | + + + + + | [facility] | [address] | [place] [address] | | | SERVICES, NATALEE | VILMA [...] | | + +---------+ + + CHELE CATES (09/15/2017 2:15 PM PDT) + + + | Narrative | Performed At | + + + | Chris Stone RN 09/16/2017 3:42 PM PICC LINE | | | Performed by: CHRIS STONE Authorized by: CHAZ HERNANDEZ | | | PICC/Midline Insertion Procedure Note Indications:TPN Procedure | | | location: Unit:[facility] Room: [facility] Providers: Attending name: | | | Attending [...] pause verifies correct patient, procedure, equipment, client technical support associate | | | and site/side marked as [...] | area Basilic vein. Catheter lot number: [id number] with a length of 55 | | [...] | [address] | [place] [address] | | | SERVICES, CORE | PARK [...] | [address] | [place] [address] | | | SERVICES, CORE | PARK [...] the MDRD equation recommended by the | [facility] | | National Kidney [...] | + + + + + | [facility] | [address] | [place] [address] | | | NATALEE WORTHINGTON | VILMA [...] | + + + + + | [facility] | [address] | [place] [address] | | | NATALEE WORTHINGTON | VILMA [...] | + + + + + | [facility] | [address] | [place] [address] | | | SERVICES, CORE | VILMA [...] | [address] | [place] [address] | | | SERVICES, CORE | PARK [...] | + + + + + | [facility] | [address] | [place] [address] | | | NATALEE WORTHINGTON | VILMA [...] | + + + + + | [facility] | [address] | [place] [address] | | | SERVICES, CORE | VILMA [...] | + + + + + | [facility] | [address] | [place] [address] | | | SERVICES, CORE | [address] | | | + + + + + X-RAY ABD LTD FEEDING TUBE EVAL (09/12/2017 6:50 AM PDT) + + | Specimen | + + | | + + + + + | Narrative | Performed At | + + + | EXAM: ABD LTD FEEDING TUBE EVAL HISTORY: Dobbhoff tube | [facility] | | placement. COMPARISON: 09/10/2017. FINDINGS/IMPRESSION: Tip [...] Note | + + | Service Account, [employer] In Interface - 09/12/2017 9:13 AM [...] |side hole at the gastric fundus. Surgical fenrandez project over the central abdomen. There i [...] | + + + + + | [facility] | [address] | [place] [address] | | | SERVICES, CORE | [address] | | | + + + + + MAGNESIUM, PLASMA (09/12/2017 6:33 AM PDT) + +-------+ + + + | Component | Value | Ref Range | Performed | Pathologist | | | | | At | Signature | + +-------+ + + + | MAGNESIUM,P | 2.3 | 1.6 - 2.6 mg/dL | [facility] | | | [facility] | | | [...] | [address] | [place] [address] | | | ELIN, NATALEE | VIL[address] [...] | + + + + + | [facility] | [address] | [place] [address] | | | SERVICES, CORE | VILMA [...] | + + + + + | [facility] | [address] | [place] [address] | | | NATALEE WORTHINGTON | P[address] [...] | + + + + + | [facility] | [address] | [place] [address] | | | SERVICES, CORE | VILMA [...] | + + + + + | [facility] | [address] | [place] [address] | | | SERVICES, CORE | VILMA [...] | + + + + + | [facility] | [address] | [place] [address] | | | SERVICES, [facility] | [address] | | | + + + + + X-RAY ABD LTD FEEDING TUBE EVAL (09/10/2017 12:44 PM PDT) + + | Specimen | + + | | + + + + + | Narrative | Performed At | + + + | INDICATION: DHT placement TECHNIQUE: Upright portable view of | [facility] | | the upper abdomen. Comparison: [...] Note | + + | Service Account, [employer] Res In Interface - 09/10/2017 2:31 PM [...] Note | + + | Service Account, [employer] Res In Interface - 09/10/2017 9:25 AM [...] | + + + + + | [facility] | [address] | [place] [address] | | | SERVICES, CORE | VILMA [...] [facility] | [address] | [place] [address] | | | SERVICES, CORE | [address] [...] | + + + + + | [facility] | [address] | [place] [address] | | | SERVICES, CORE | PARK [...] | [address] | [place] [address] | | | SERVICES, CORE | PARK [...] | + + + + + | [facility] | [address] | [place] [address] | | | ELIN, NATALEE | PARK [...] + + | [facility] | 489 | ms | [facility] [...] DEPT OF | [address] | [place], [place] | | | CARDIOLOGY | [address] | [id number] | | + + + + + [...] Note | + + | Service Account, [employer] Res In Interface - 09/10/2017 11:11 AM [...] | | [facility] | [facility] | [id number] | | | TESTS | | | [...] | + + + + + | [facility] | [address] | [place] [address] | | | SERVICES, CORE | VILMA [...] | [address] | [place] [address] | | | NATALEE WORTHINGTON | VILMA [...] | + + + + + | [facility] | [address] | [place] [address] | | | SERVICES, CORE | VILMA [...] | [address] | [place] [address] | | | SERVICES, CORE | PARK [...] | + + + + + | [facility] | [address] | [place] [address] | | | ELIN, NATALEE | VILMA [...] | [address] [address] | [place] [address] | | | SERVICES, CORE | PARK [...] | + + + + + | [facility] | [address] | [place] [address] | | | SERVICES, CORE | [address] | | | + + + + + X-RAY ABD LTD FEEDING TUBE EVAL (09/08/2017 4:38 AM PDT) + + | Specimen | + + | | + + + + + | Narrative | Performed At | + + + | EXAM: ABD LTD FEEDING TUBE KAREEMAL 09/08/17 04:04:50 COMPARISON: | [facility] | | [...] DEPT OF | [address] | [place], [place] | | | CARDIOLOGY | [address] | [address] | | + + + + + [...] Note | + + | Service Account, [employer] Res In Interface - 09/07/2017 10:46 [...] | + + + + + | [facility] | [address] | [place] [address] | | | SERVICES, NATALEE | [address] [...] | + + + + + | [facility] | [address] | [place] [address] | | | SERVICES, CORE | PARK [...] | + + + + + | [facility] | [address] | [place] [address] | | | SERVICES, [facility] | [address] | | | + + + + + X-RAY EL LTD FEEDING TUBE EVAL (09/06/2017 8:04 PM [...] EL PEÑA | | FEEDING TUBE EVAL 09/06/17 19:27:59 [...] + + | [facility] DE[facility] OF | [address] | [place], [place] | | | CARDIOLOGY | [address] | [address] | | + + + + + [...] | | | attempt. Midline lot number [id number]; there was positive blood | | | [...] | + + + + + | [facility] | [address] | [place] [address] | | | SERVICES, CORE | [address] [...] [facility] | [address] | [place] [address] | | | NATALEE WORTHINGTON | [address] [...] Note | + + | Service Account, [employer] Res In Interface - 09/05/2017 10:16 AM [...] | + + + + + | [facility] | [address] | [place] [address] | | | SERVICES, CORE | [address] [...] | [address] | [place] [address] | | | SERVICES, CORE | PARK [...] | [address] | [place] [address] | | | SERVICES, CORE [...] | + + + + + | [facility] | [address] | [place] [address] | | | NATALEE WORTHINGTON | [address] [...] tomorrow morning. CB Henson Pager / ID: [phone] | | + + + CULTURE, SPUTUM [...] seen | AIRPORT - | | | AYUSH | + + + + + + + + | Performing | Address | City/State/Zipcode | Phone Number | | Organization | | | | + + + + + | [facility] - | [address] | [place] [address] | | | [place] | | | [...] | + + + + + | [facility] | [address] | [place] [address] | | | SERVICES, CORE | [address] [...] | [facility] | | | GRAVITY | Dana performed by | | LABORATORY | | [...] | + + + + + | [facility] | [address] | [place] [address] | | | SERVICES, CORE | [address] [...] | [address] | [place] [address] | | | SERVICES, CORE | [address] | | | + + + + + CULTURE, BLOOD BACTI & YEAST SCDANIELLE (09/04/2017 1:16 PM PDT) + + + [...] | + + + + + | [facility] | [address] | [place] [address] | | | SERVICES, CORE | [address] [...] + + | [facility] | 474 | ms | [facility] DEPT [...] DEPT OF | [address] | [place], [place] | | | CARDIOLOGY | [address] | [address] | | + + + + + [...] Note | + + | Service Account, RadiDailysingle Res In Interface - 09/04/2017 9:49 AM [...] | [address] | [place] [address] | | | SERVICES, CORE | P[address] [...] | [address] | [place] [address] | | | SERVICES, CORE | [address] [...] the MDRD equation recommended by the | [facility] | | National Kidney Disease Education Program. [...] | + + + + + | [facility] | [address] | [place] [address] | | | NATALEE WORTHINGTON | [address] [...] | + + + + + | [facility] | [address] | [place] [address] | | | NATALEE WORTHINGTON | [address] [...] | | [facility] GE[facility]O [facility] CARE | [facility] | [address] | | | TESTS | | | [...] [facility] | [address] | [place], [place] | | | GL[facility]IA GE[place] OF [employer] | [facility] | [address] | | | TESTS | | | [...] [facility] | [address] | [place], [place] | | | [facility] POINT OF CARE | [address] | [address] | | | TESTS | | | [...] [facility] | [address] | [place], [place] | | | [facility] POINT OF CARE | [address] | [address] | | | TESTS | | | [...] Note | + + | Service Account, [employer] In Interface - 09/03/2017 10:27 AM PDT [...] + | [facility] - | [address] | [place] [address] | | | [place] | | | [...] | + + + + + | [facility] | [address] | [place] [address] | | | SERVICES, CORE | [address] [...] detected | AIR[facility] - | | | [place] | + + + + + + + + | Performing | Address | City/State/Zipcode | Phone Number | | Organization | | | | + + + + + | [facility] - | [address] | [place] [address] | | | [place] | | | [...] | + + + + + | [facility] | [address] | [place] [address] | | | SERVICES, CORE | [address] [...] | + + + + + | [facility] | [address] | [place] [address] | | | SERVICES, CORE | [address] [...] the MDRD equation recommended by the | [facility] | | National Kidney Disease Education Program. [...] | + + + + + | [facility] | [address] | [place] [address] | | | SERVICES, CORE | PARK [...] | [address] | [place] [address] | | | SERVICES, CORE | [address] | | | + + + + + OPERATION RECORD (09/02/2017 6:53 PM PDT) + + | Procedure Note | + + | Fidelina Shields MD - 09/02/2017 6:53 PM PDT Date of Service: 09/02/2017 | | Attending Surgeon: Fidelina Shields MD Loft Patternmaker(s): | | Ajay Butts MD, resident. Preoperative [...] 09/02/2017 18:15:29DT: 09/02/2017 18:53:52Job #: | | [id number] to federal Medicare and Medicaid regulations I was present for | | the entire procedure.Fidelina Tenorio ProfessorDepartment of SurgeryOffice: | | [phone]: [id number] has been electronically signed by Fidelina Shields MD, | | 09/03/2017 at 9:11 AM. | | | | | |Fidelina Shields MD | |Damage Prevention Coordinator | |Department of Surgery | |Office: [phone] | |Pager: [phone] | | | |This has been electronically [...] [facility] | [address] | [place] [address] | | | SERVICES, CORE | [address] [...] | + + + + + | [facility] | [address] | [place] [address] | | | SERVICES, CORE | [address] [...] + | [facility] - | [address] | [place] [address] | | | [place] | | | [...] | + + + + + | [facility] | [address] | [place] [address] | | | SERVICES, NATALEE | PARK [...] | + + + + + | [facility] | [address] | [place] [address] | | | SERVICES, CORE | [address] [...] Note | + + | Service Account, [employer] Res In Interface - 09/02/2017 4:25 [...] Bedrest Initial surgical | | | contact: [facility] Butts, Surgery [phone] Pursuant | | | to federal Medicare and Medicaid regulations I was present for the | | | entire procedure. Fidelina Shields MD Damage Prevention Coordinator | | | Department of Surgery Office: [phone] Pager: [phone] This has | | | been electronically [...] | [address] | [place] [address] | | | SERVICES, CORE | PARK [...] | [address] | [place] [address] | | | SERVICES, NATALEE | [address] | | | + + + + + OPERATION RECORD (09/02/2017 6:51 AM PDT) + ---+ | Procedure Note | + ---+ | Fidelina Shields MD - 09/02/2017 6:51 AM PDT Date of Service: 09/01/2017 | | Attending Surgeon: Fidelina Shields MD Loft Patternmaker(s): Haim Peralta MD. | | Ajay Butts [...] 09/02/2017 06:17:53DT: 09/02/2017 | | 06:51:37Job #: [id number] to federal Medicare and Medicaid regulations I | | was present for the entire procedure.Fidelina Shields MDAssistant ProfessorDepartment of | | SurgeryOffice: [phone]: [id number] has been electronically signed by Fidelina Whitman | | MD Cornelius, 09/02/2017 at 10:40 AM. | | | | | |Pursuant to federal Medicare and Medicaid regulations I was present for the entire procedur e. | | | | | | | |Fidelina Shields MD | |Damage Prevention Coordinator | |Department of Surgery | |Office: [phone] | |Pager: [phone] | | | |This has been electronically [...] | + + + + + | [facility] | [address] | [place] [address] | | | SERVICES, CORE | PARK [...] | + + + + + | [facility] | [address] | [place] [address] | | | SERVICES, CORE | [address] [...] + + + + | PRODUCT | [id number] | | [facility] | | | UNIT [...] + + + + | EXPIRATION | [id number] | | [facility] | | | DATE [...] + + + + | BLOOD | [id number] | | [facility] | | | PRODUCT [...] | + + + + + | [facility] | [address] | [place] [address] | | | SERVICES, | [address] [...] | + + + + + | [facility] | [address] | [place] [address] | | | SERVICES, CORE | PARK [...] | + + + + + | [facility] | [address] | [place] [address] | | | ELIN, NATALEE | [address] | | | + + + + + MAGNESIUM, PLASMA (09/01/2017 11:16 PM PDT) + +-------+ + + + | Component | Value | Ref Range | Performed | Pathologist | | | | | At | Signature | + +-------+ + + + | MAGNESIUM,P | 1.6 | 1.6 - 2.6 mg/dL | [facility] | | | [facility] | | | [...] | [address] | [place] [address] | | | SERVICES, NATALEE [...] | | | | INFORMATION: | | [place] | | | | QuantiFERON-TB Gold | [...] (http://www.cdc.gov/mmwr | | | | | | /preview/mmwrhtml/pu3418 | | | | | | a1.htm), [...] [facility] - | | | | by Thoora, | | AIRPORT - | | | | | | [place] | | | | [address] | | | | | | [address] [place] | | | | | | [address] | | | | | | | | | | | | www.[employer], [employer] | | | | | | [...] + | [facility] - | [address] | [place] [address] | | | [place] | | | | + + + [...] LABORATORY | [address] | [place] [address] | | | SERVICES, CORE | PARK [...] | + + + + + | [facility] | [address] | [place] [address] | | | SERVICES, CORE | [address] [...] Note | + + | Service Account, [employer] In Interface - 09/02/2017 8:55 AM PDT [...] | [address] | [place] [address] | | | SERVICES, CORE | PARK [...] LABORATORY | [address] | [place] [address] | | | SERVICES, CORE | PARK [...] + + + + | PRODUCT | [id number] | | [facility] | | | UNIT [...] + + + + | EXPIRATION | [id number] | | [facility] | | | DATE [...] + + + + | BLOOD | [id number] | | [facility] | | | PRODUCT [...] + + | [facility] | [address] | [place] [address] | | | SERVICES, | [address] [...] | [address] | [place] [address] | | | SERVICES, CORE | PARK [...] | + + + + + | [facility] | [address] | [place] [address] | | | SERVICES, NATALEE | [address] [...] | + + + + + | [facility] | [address] | [place] [address] | | | SERVICES, CORE | [address] [...] | + + + + + | [facility] | [address] | [place] [address] | | | SERVICES, CORE | [address] [...] | + + + + + | [facility] | [address] | [place] [address] | | | NATALEE WORTHINGTON | [address] [...] | + + + + + | [facility] | [address] | [place] [address] | | | SERVICES, CORE | [address] [...] micropuncture access set was exchanged for a NoRedInk wire. Under | | | fluoroscopic guidance, a 5 Fr flush catheter was used to evaluate the | | | distal abdominal aorta and pelvic vasculature. A wire and catheter | | | were then used to select the left common and internal iliac arteries | | | from the right SECURITY INFRASTRUCTURE ENGINEER approach. DSA was performed from the [...] micropuncture access set was exchanged for a NoRedInk wire. Under fluoroscopic guidance, | | a 5 Fr flush catheter was used to evaluate the distal abdominal aorta and pelvic | | vasculature. A wire and catheter were then used to select the left common and internal | | iliac arteries from the right SECURITY INFRASTRUCTURE ENGINEER approach. DSA was performed from the [...] micropuncture access set was exchanged for a NoRedInk wire. Under fluoroscopic guidance, a 5 Fr flush catheter was used | |to evaluate the distal abdominal aorta and pelvic vasculature. A wire and catheter were th en used to select the left common and internal iliac arteries from the right SECURITY INFRASTRUCTURE ENGINEER approach. DSA was performed from the [...] [facility] | [address] | [place], [place] | | | GLORIA GENAO OF [employer] | [address] | [address] | | | TESTS | | | | + + + + + EXPLORATORY LAPAROTOMY (09/01/2017 12:31 PM PDT) + + + | Narrative | Performed At | + + + | Fidelina Shields MD 09/01/2017 12:42 PM BRIEF OPERATIVE NOTE: | | | Date: 09/01/2017 Author: Fidelina Shields MD | | | Attending Physician: Fidelina Shields MD Loft Patternmaker(s): Haim Peralta | | | , Vicente Butts MD, [facility] Prior to the | | [...] case. | | | Fidelina Shields MD Damage Prevention Coordinator Division of Trauma, | | | Critical Care and Acute Care Surgery Office: [phone] Pager: | | | [phone] | | + + + ABG-FULL ABL, [...] + + + | [facility] | [address] | [place], [place] | | | [facility] POINT OF CARE | [address] | [address] | | | TESTS | | | [...] | + + + + + | [facility] | [address] | [place] [address] | | | SERVICES, CORE | [address] | | | + + + + + KATELYNN-KENRICK ABL POC (09/01/2017 11:04 AM PDT) + + + + + + | Component | Value | Ref Range | Performed | Pathologist | | | | | At | Signature | + + + + + + | PH | 7.35 (L) | 7.37 - 7.44 | [facility] - | | | ARTERIAL, | [...] [facility] | [address] | [place], [place] | | | [place] POINT OF CARE | [address] | [address] | | | TESTS | | | [...] + + + + | PRODUCT | [id number] | | [facility] | | | UNIT [...] + + + + | EXPIRATION | [id number] | | [facility] | | | DATE [...] + + + + | BLOOD | [id number] | | [facility] | | | PRODUCT [...] | [address] | [place] [address] | | | SERVICES, | [address] [...] + + + + | PRODUCT | [id number] | | [facility] | | | UNIT [...] + + + + | EXPIRATION | [id number] | | [facility] | | | DATE [...] + + + + | BLOOD | [id number] | | [facility] | | | PRODUCT [...] | [address] | [place] [address] | | | SERVICES, | [address] [...] + + + + | PRODUCT | [id number] | | [facility] | | | UNIT [...] + + + + | EXPIRATION | [id number] | | [facility] | | | DATE [...] + + + + | BLOOD | [id number] | | [facility] | | | PRODUCT [...] | [address] | [place] [address] | | | SERVICES, | [address] [...] + + + + | PRODUCT | [id number] | | [facility] | | | UNIT [...] + + + + | EXPIRATION | [id number] | | [facility] | | | DATE [...] + + + + | BLOOD | [id number] | | [facility] | | | PRODUCT [...] | + + + + + | [facility] | [address] | [place] [address] | | | SERVICES, | [address] [...] + + + + | PRODUCT | [id number] | | [facility] | | | UNIT [...] + + + + | EXPIRATION | [id number] | | [facility] | | | DATE [...] + + + + | BLOOD | [id number] | | [facility] | | | PRODUCT [...] | + + + + + | [facility] | [address] | [place] [address] | | | SERVICES, | [address] [...] + + + + | PRODUCT | [id number] | | [facility] | | | UNIT [...] + + + + | EXPIRATION | [id number] | | [facility] | | | DATE [...] + + + + | BLOOD | [id number] | | [facility] | | | PRODUCT [...] | + + + + + | [facility] | [address] | [place] [address] | | | SERVICES, | [address] [...] + + + + | PRODUCT | [id number] | | [facility] | | | UNIT [...] + + + + | EXPIRATION | [id number] | | [facility] | | | DATE [...] + + + + | BLOOD | [id number] | | [facility] | | | PRODUCT [...] | + + + + + | [facility] | [address] | [place] [address] | | | SERVICES, | [address] [...] + + + + | PRODUCT | [id number] | | [facility] | | | UNIT [...] + + + + | EXPIRATION | [id number] | | [facility] | | | DATE [...] + + + + | BLOOD | [id number] | | [facility] | | | PRODUCT [...] [facility] | [address] | [place] [address] | | | SERVICES, | [address] [...] + + + + | PRODUCT | [id number] | | [facility] | | | UNIT [...] + + + + | EXPIRATION | [id number] | | [facility] | | | DATE [...] + + + + | BLOOD | [id number] | | [facility] | | | PRODUCT [...] | [address] | [place] [address] | | | SERVICES, | [address] [...] + + + + | PRODUCT | [id number] | | [facility] | | | UNIT [...] + + + + | EXPIRATION | [id number] | | [facility] | | | DATE [...] + + + + | BLOOD | [id number] | | [facility] | | | PRODUCT [...] | [address] | [place] [address] | | | SERVICES, | [address] [...] + + + + | PRODUCT | [id number] | | [facility] | | | UNIT [...] + + + + | EXPIRATION | [id number] | | [facility] | | | DATE [...] + + + + | BLOOD | [id number] | | [facility] | | | PRODUCT [...] [facility] | [address] | [place] [address] | | | SERVICES, | [address] [...] + + + + | PRODUCT | [id number] | | [facility] | | | UNIT [...] + + + + | EXPIRATION | [id number] | | [facility] | | | DATE [...] + + + + | BLOOD | [id number] | | [facility] | | | PRODUCT [...] | [address] | [place] [address] | | | SERVICES, | [address] [...] + + + + | PRODUCT | [id number] | | [facility] | | | UNIT [...] + + + + | EXPIRATION | [id number] | | [facility] | | | DATE [...] + + + + | BLOOD | [id number] | | [facility] | | | PRODUCT [...] | + + + + + | [facility] | [address] | [place] [address] | | | SERVICES, | [address] [...] + + + + | PRODUCT | [id number] | | [facility] | | | UNIT [...] + + + + | EXPIRATION | [id number] | | [facility] | | | DATE [...] + + + + | BLOOD | [id number] | | [facility] | | | PRODUCT [...] | + + + + + | [facility] | [address] | [place] [address] | | | SERVICES, | [address] [...] + + + + | PRODUCT | [id number] | | [facility] | | | UNIT [...] + + + + | EXPIRATION | [id number] | | [facility] | | | DATE [...] + + + + | BLOOD | [id number] | | [facility] | | | PRODUCT [...] | + + + + + | [facility] | [address] | [place] [address] | | | SERVICES, | [address] [...] + + + + | PRODUCT | [id number] | | [facility] | | | UNIT [...] + + + + | EXPIRATION | [id number] | | [facility] | | | DATE [...] + + + + | BLOOD | [id number] | | [facility] | | | PRODUCT [...] | + + + + + | [facility] | [address] | [place] [address] | | | SERVICES, | [address] [...] + + + + | PRODUCT | [id number] | | [facility] | | | UNIT [...] + + + + | EXPIRATION | [id number] | | [facility] | | | DATE [...] + + + + | BLOOD | [id number] | | [facility] | | | PRODUCT [...] | + + + + + | [facility] | [address] | [place] [address] | | | SERVICES, | [address] [...] + + + + | PRODUCT | [id number] | | [facility] | | | UNIT [...] + + + + | EXPIRATION | [id number] | | [facility] | | | DATE [...] + + + + | BLOOD | [id number] | | [facility] | | | PRODUCT [...] [facility] | [address] | [place] [address] | | | SERVICES, | [address] [...] + + + + | PRODUCT | [id number] | | [facility] | | | UNIT [...] + + + + | EXPIRATION | [id number] | | [facility] | | | DATE [...] + + + + | BLOOD | [id number] | | [facility] | | | PRODUCT [...] | [address] | [place] [address] | | | SERVICES, | [address] [...] + + + + | PRODUCT | [id number] | | [facility] | | | UNIT [...] + + + + | EXPIRATION | [id number] | | [facility] | | | DATE [...] + + + + | BLOOD | [id number] | | [facility] | | | PRODUCT [...] | [address] | [place] [address] | | | SERVICES, | [address] [...] + + + + | PRODUCT | [id number] | | [facility] | | | UNIT [...] + + + + | EXPIRATION | [id number] | | [facility] | | | DATE [...] + + + + | BLOOD | [id number] | | [facility] | | | PRODUCT [...] | [address] | [place] [address] | | | SERVICES, | [address] [...] + + + + | PRODUCT | [id number] | | [facility] | | | UNIT [...] + + + + | EXPIRATION | [id number] | | [facility] | | | DATE [...] + + + + | BLOOD | [id number] | | [facility] | | | PRODUCT [...] | [address] | [place] [address] | | | SERVICES, | [address] [...] + + + + | PRODUCT | [id number] | | [facility] | | | UNIT [...] + + + + | EXPIRATION | [id number] | | [facility] | | | DATE [...] + + + + | BLOOD | [id number] | | [facility] | | | PRODUCT [...] | [address] | [place] [address] | | | SERVICES, | [address] [...] + + + + | PRODUCT | [id number] | | [facility] | | | UNIT [...] + + + + | EXPIRATION | [id number] | | [facility] | | | DATE [...] + + + + | BLOOD | [id number] | | [facility] | | | PRODUCT [...] | + + + + + | [facility] | [address] | [place] [address] | | | SERVICES, | [address] [...] + + + + | PRODUCT | [id number] | | [facility] | | | UNIT [...] + + + + | EXPIRATION | [id number] | | [facility] | | | DATE [...] + + + + | BLOOD | [id number] | | [facility] | | | PRODUCT [...] | + + + + + | [facility] | [address] | [place] [address] | | | SERVICES, | [address] [...] + + + + | PRODUCT | [id number] | | [facility] | | | UNIT [...] + + + + | EXPIRATION | [id number] | | [facility] | | | DATE [...] + + + + | BLOOD | [id number] | | [facility] | | | PRODUCT [...] | + + + + + | [facility] | [address] | [place] [address] | | | SERVICES, | [address] [...] | + + + + + | [facility] | [address] | [place] [address] | | | SERVICES, CORE | [address] [...] | [address] | [place] [address] | | | SERVICES, CORE | [address] [...] | + + + + + | [facility] | [address] | [place] [address] | | | SERVICES, CORE [...] 27.1 | 21 - 28 mmol/L | [facility] - | | | ARTERIAL, | | | [facility] | | | POC | | | GLORIA GENAO | | | | | | OF CARE | | | | | | TESTS | | + + + + + + | PCO2 | 46 (H) | 32 - 43 mmHg | [facility] - | | | ARTERIAL, | [...] | | POC | | g/dL | [facility] | | | | | [...] [facility] | [address] | [place], [place] | | | [employer] | [address] | [address] | | | TESTS | | | [...] CHEST 1 | | VIEW HISTORY: IntubatedCOMPARISON: 5/5/18FINDINGS: Support equipment is unchanged. The | | [...] + + + + | PRODUCT | [id number] | | [facility] | | | UNIT [...] + + + + | EXPIRATION | [id number] | | [facility] | | | DATE [...] + + + + | BLOOD | [id number] | | [facility] | | | PRODUCT [...] | + + + + + | [facility] | [address] | [place] [address] | | | SERVICES, | [address] [...] + + + + | PRODUCT | [id number] | | [facility] | | | UNIT [...] + + + + | EXPIRATION | [id number] | | [facility] | | | DATE [...] + + + + | BLOOD | [id number] | | [facility] | | | PRODUCT [...] | + + + + + | [facility] | [address] | [place] [address] | | | SERVICES, | [address] [...] + + + + | PRODUCT | [id number] | | [facility] | | | UNIT [...] + + + + | EXPIRATION | [id number] | | [facility] | | | DATE [...] + + + + | BLOOD | [id number] | | [facility] | | | PRODUCT [...] | + + + + + | [facility] | [address] | [place] [address] | | | SERVICES, | [address] [...] + + + + | PRODUCT | [id number] | | [facility] | | | UNIT [...] + + + + | EXPIRATION | [id number] | | [facility] | | | DATE [...] + + + + | BLOOD | [id number] | | [facility] | | | PRODUCT [...] | [address] | [place] [address] | | | SERVICES, | [address] [...] + + + + | PRODUCT | [id number] | | [facility] | | | UNIT [...] + + + + | EXPIRATION | [id number] | | [facility] | | | DATE [...] + + + + | BLOOD | [id number] | | [facility] | | | PRODUCT [...] | [address] | [place] [address] | | | SERVICES, | [address] [...] + + + + | PRODUCT | [id number] | | [facility] | | | UNIT [...] + + + + | EXPIRATION | [id number] | | [facility] | | | DATE [...] + + + + | BLOOD | [id number] | | [facility] | | | PRODUCT [...] [facility] | [address] | [place] [address] | | | SERVICES, | [address] [...] + + + + | PRODUCT | [id number] | | [facility] | | | UNIT [...] + + + + | EXPIRATION | [id number] | | [facility] | | | DATE [...] + + + + | BLOOD | [id number] | | [facility] | | | PRODUCT [...] [facility] | [address] | [place] [address] | | | SERVICES, | [address] [...] + + + + | PRODUCT | [id number] | | [facility] | | | UNIT [...] + + + + | EXPIRATION | [id number] | | [facility] | | | DATE [...] + + + + | BLOOD | [id number] | | [facility] | | | PRODUCT [...] | [address] | [place] [address] | | | SERVICES, | VILMA DAVE [...] + + + + | PRODUCT | [id number] | | [facility] | | | UNIT [...] + + + + | EXPIRATION | [id number] | | [facility] | | | DATE [...] + + + + | BLOOD | [id number] | | [facility] | | | PRODUCT [...] | [address] | [place] [address] | | | SERVICES, | [address] [...] | [address] | [place] [address] | | | SERVICES, CORE | PARK [...] | + + + + + | [facility] | [address] | [place] [address] | | | NATALEE WORTHINGTON | VILMA [...] Discussed with | | | trauma ICU safety intern by Dr. Yang at 4:38 AM. [...] interspinous ligament is injured.Discussed with trauma ICU safety intern | | by Dr. Yang at 4:38 AM.I have personally reviewed the images and, if necessary, | | edited the report. I agree with the report as now presented. | |3. Extensive soft tissue edema extending into the cervical and upper thoracic interspinous space, suggestive of interspinous ligament is injured. | | | |Discussed with trauma ICU safety intern by Dr. Yang at 4:38 AM. [...] the MDRD equation recommended by the | [facility] | | National Kidney Disease Education Program. [...] | + + + + + | [facility] | [address] | [place] [address] | | | SERVICES, CORE | [address] | | | + + + + + MAGNESIUM, PLASMA (09/01/2017 1:33 AM PDT) + +---------+ + + + | Component | Value | Ref Range | Performed | Pathologist | | | | | At | Signature | + +---------+ + + + | MAGNESIUM,P | 1.4 (L) | 1.6 - 2.6 mg/dL | [facility] | | | [facility]MA | | | [...] | [address] | [place] [address] | | | SERVICES, NATALEE | VILMA [...] [facility] | [address] | [place] [id number] | | | SERVICES, CORE | PARK [...] | [address] | [place] [address] | | | NATALEE WORTHINGTON | VILMA [...] pleural spaced was performed. A 32 size Luxembourger chest tube was | | | placed [...] | ventricles. Discussed with the trauma ICU safety intern at 12:12 AM by | | [...] ventricles.Discussed with | | the trauma ICU safety intern at 12:[address] Yang.I [...] | | |Discussed with the trauma ICU safety intern at 12:[address] Yang. [...] | [facility] - | | Name: Diogenes Martinezwell 08/31/2017 Time: 17:45 | [facility], | [...] + + + | [facility] | [address] | [place], [place] | | | [facility] | [address] | [address] | | | TESTS | | | [...] | [address] | [place] [address] | | | NATALEE WORTHINGTON | VILMA [...] | + + + + + | [facility] | [address] | [place] [address] | | | SERVICES, CORE | VILMA [...] Note | + + | Service Account, [employer] Res In Interface - 09/01/2017 1:50 PM [...] Note | + + | Service Account, [employer] Res In Interface - 09/01/2017 1:40 PM [...] Note | + + | Service Account, [employer] Res In Interface - 09/01/2017 1:50 PM [...] Note | + + | Service Account, [employer] Res In Interface - 09/01/2017 1:50 PM [...] | | + +---------+ + + | [facility] | | | | | VOICE [...] [facility] | [address] | [place] [address] | | | SERVICES, CORE | [address] | | | + + + + + X-RAY PORTABLE CHEST 1 VIEW (08/31/2017 7:07 PM PDT) + + | Specimen | + + | | + + + + + | Narrative | Performed At | + + + | STUDY: SD CHEST 1 VIEW HISTORY: Trauma COMPARISON: CT CAP | [facility] | | 08/31/2017 FINDINGS: Endotracheal tube with [...] | + + + + + | [facility] | [address] | [place] [address] | | | SERVICES, NATALEE | VILMA [...] Service Kostas Galeas Res In Interface - 09/01/2017 10:12 AM [...] rib, nondisplaced-Left | | 1st rib fracture, warxbmwgesia-Wnl-nzkgrtsyx left lateral 8th rib fracture-T12 fracture | [...] | + + + + + | [facility] | [address] | [place] [address] | | | SERVICES, | [address] [...] | [address] | [place] [address] | | | SERVICES, | [address] [...] | + + + + + | [facility] | [address] | [place] [address] | | | SERVICES, | [address] [...] | | [facility] | [facility] | [address] | | | TESTS | | | [...] [facility] | [address] | [place], [place] | | | [facility] | [address] | [address] | | | TESTS | | | | + + + + + CHEM 8 W/H&HPOC (08/31/2017 5:31 PM PDT) + + + [...] - [facility] | [address] | [place], [place] | | | [facility] | [address] | [address] | | | TESTS | | | [...] [facility] | [address] | [place], [place] | | | [facility] | [address] | [address] | | | TESTS | | | [...] + + + + | PRODUCT | [id number] | | [facility] | | | UNIT [...] + + + + | EXPIRATION | [id number] | | [facility] | | | DATE [...] + + + + | BLOOD | [id number] | | [facility] | | | PRODUCT [...] | [address] | [place] [address] | | | SERVICES, | [address] [...] + + + + | PRODUCT | [id number] | | [facility] | | | UNIT [...] + + + + | EXPIRATION | [id number] | | [facility] | | | DATE [...] + + + + | BLOOD | [id number] | | [facility] | | | PRODUCT [...] [facility] | [address] | [place] [address] | | | SERVICES, | [address] [...] + + + + | PRODUCT | [id number] | | [facility] | | | UNIT [...] + + + + | EXPIRATION | [id number] | | [facility] | | | DATE [...] + + + + | BLOOD | [id number] | | [facility] | | | PRODUCT [...] | [address] | [place] [address] | | | SERVICES, | [address] [...] + + + + | PRODUCT | [id number] | | [facility] | | | UNIT [...] + + + + | EXPIRATION | [id number] | | [facility] | | | DATE [...] + + + + | BLOOD | [id number] | | [facility] | | | PRODUCT [...] LABORATORY | [address] | [place] [address] | | | SERVICES, | [address] [...] + + + + | PRODUCT | [id number] | | [facility] | | | UNIT [...] + + + + | EXPIRATION | [id number] | | [facility] | | | DATE [...] + + + + | BLOOD | [id number] | | [facility] | | | PRODUCT [...] | [address] | [place] [address] | | | SERVICES, | [address] [...] + + + + | PRODUCT | [id number] | | [facility] | | | UNIT [...] + + + + | EXPIRATION | [id number] | | [facility] | | | DATE [...] + + + + | BLOOD | [id number] | | [facility] | | | PRODUCT [...] | + + + + + | [facility] | [address] | [place] [address] | | | SERVICES, | [address] [...] + + + + | PRODUCT | [id number] | | [facility] | | | UNIT [...] + + + + | EXPIRATION | [id number] | | [facility] | | | DATE [...] + + + + | BLOOD | [id number] | | [facility] | | | PRODUCT [...] | + + + + + | [facility] | [address] | [place] [address] | | | SERVICES, | [address] [...] + + + + | PRODUCT | [id number] | | [facility] | | | UNIT [...] + + + + | EXPIRATION | [id number] | | [facility] | | | DATE [...] + + + + | BLOOD | [id number] | | [facility] | | | PRODUCT [...] | + + + + + | [facility] | [address] | [place] [address] | | | SERVICES, | [address] [...] | [address] | [place] [address] | | | SERVICES, CORE | [address] [...] the MDRD equation recommended by the | [facility] | | National Kidney [...] | [address] | [place] [address] | | | SERVICES, CORE | [address] [...] | + + + + + | [facility] | [address] [facility] | [place] [address] | | | [facility] | [address] | | [...] | + + + + + | [email or web address] | [address] | [place] [address] | | | SERVICES, CORE | P[address] [...] | [address] | [place] [address] | | | SERVICES, CORE | [address] [...] | + + + + + | [facility] | [address] | [place] [address] | | | SERVICES, NATALEE | VIL[address] [...] +-------+ +-------+---+---+ +-------+ +-------+---+---+ | Given | 08/09/20 | 50 mg | | | | [...]
--- OUTSIDE RECORDS SUMMARY | ~2020-02-06 | XMS | Encounter Summary ---
Demographics + + + | Address | [address] | | | [place] [address] | + + + | Home Phone [...] Author | [facility] [employer] [facility] | + + + | Organization | [facility] [employer] [facility] | [...] Team Providers + +------+ + | Care Numerical Control Drill Press Operator Name | Role | Phone [...] | | | | Rd [facility] | | | | | | Hospital Admitting | | | | | | Desk Located on the | | | | | | 9th floor | | | | | | [place], [place] | | | | | | [address] | | | +--------+ + + + [...]
--- OUTSIDE RECORDS SUMMARY | ~2020-02-06 | XMS | Encounter Summary ---
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 for [...] [place] [phone] [facility] [address] [address] [phone] Associated attestation - Chaz Hernandez MD - 10/07/2017 11:15 AM PDTI saw and examined th e patient today with KESHAWN Martin, and agree with the assessement and plan a s outlined in her note. Will consider changing to bolus TF. Plan Gabriel-oconnor tube next week. Chaz Hernandez MD, FACS Magazine Grinder Loader, Trauma, Critical Care and Acute Care [...] p atient unable to come out fo LOG TURNER for now Resolved or chronic issues/Plan: #Previous [...] by patient, but wound remains duke n/dry/intact. Holbrook removed 09/17. #Left hemothorax Chest tube placed [...] issues, including restraints. Venita Pruitt PA-[place] [phone] [place] [phone] [facility] [address] [address] [phone] Associated attestation - Em Cunningham MD - 10/17/2017 10:13 AM PDTI was present and rou nded with the Advanced Practice Provider today . I interviewed and examined the patient. I reviewed the history, as documented today. I agree with the ASHLEY assessment and plan. TBI has remained stable. On lovenox. Will continue haldol per psych.. EM CUNNINGHAM MD [facility] [address] [place] [address] Venita Pruitt PA-C - 10/05/2017 8:38 AM [...] p atient unable to come out fo LOG TURNER for now Resolved or chronic issues/Plan: #Previous [...] by patient, but wound remains duke n/dry/intact. Holbrook removed 09/17. #Left hemothorax Chest tube placed [...] issues, including restraints. Venita Pruitt PA-C [place] [phone] [place] [phone] [facility] [place] [address] [address] [place] [facility] [place] [address] [phone] Associated attestation - Shlomo Bravo MD - 10/06/2017 7:28 AM PDTFormatting of this note m ight be different from the original. I saw and examined Diogenes Temple ([id number]) with the TRAUMA team on 10/05/2017. I [...] and incen tive spirometry for pulmonary toliet. integrated marketing manager for disposition planning and placement. Shlomo Bravo MD Gas Engine Operator Generators Division of Trauma and Critical Care Venita [...] 3 results) - Refreshable Recent Labs 10/02/17 0510/03/1760210/04/17 0528 WBC 12.64* 9.40 7.70 HB 13.5 13.1* 13.5 HCT 40.9* 41.1 42.4 PLT 210 214 221 Chemistries: Last 72 Hours (or 3 results) - Refreshable Recent Labs 10/02/17 0512 10/03/17 0610/03/17 2355 10/04/17 0528 10/04/17 0555 NA [...] (baseline from previous TBI ) Neck: in [place] collar Respiratory: CTA b.l CV: RRR GI: [...] p atient unable to come out fo LOG TURNER for now Resolved or chronic issues/Plan: #Previous [...] issues, including restraints. Venita Pruitt PA-C [place] [phone] [place] [phone] [facility] [address] [place] [facility] [phone] Associated attestation - Fidelina Shields MD - [...] and only enteral access. Fidelina Shields MD Magazine Grinder Loader Division of Trauma, Critical Care and Acute Care Surgery Office: [phone] Pager: [phone] Leonor Torres ACNP - 10/03/2017 3:13 PM [...] (or 3 results) - Refreshable Recent Labs 10/01/1725 10/02/17 0512 10/03/17 0603 WBC 9.02 12.64* [...] (baseline from previous TBI ) Neck: in [place] collar Respiratory: CTA bilaterally, no distress CV: [...] p atient unable to come out fo LOG TURNER for now Resolved or chronic issues/Plan: Previous [...] by patient, but wound remains duke n/dry/intact. Holbrook removed 09/17. #Left hemothorax Chest tube placed [...] PDTAttending: I saw and examined Diogenes Temple ([id number]) with CB Hair on morning rounds 10/03 and agree with the assessment and plan as outlined in this note and participated in the planning of care. Mental status is slightly better, remains sedated but he is interactive and at least somewh at oriented. Enteral nutrition advancing and, as approaches goal, will turn TPN off. Place ment remains a significant issue. Fidelina Shields MD Magazine Grinder Loader Division of Trauma, Critical Care and Acute Care Surgery Office: [phone] Pager: [phone] July Harp PA-C - 10/03/2017 12:58 PM [...] the C-collar when in bed then the LOG TURNER when out of bed until 12/01/17. JULY HARP PA-C [facility] [address] [place] [address] Associated attestation - Magdiel Stock MD - 10/04/2017 6:02 PM PDTI performed a history a nd physical examination of the patient and discussed the management with the advanced practi ce provider, July Harp PA-C. I reviewed the advanced practice provider's note and agree w ith the plan of care as documented. Continue cervical collar and LOG TURNER for 3 months to ensure fracture healing and prevent development of post-fracture cervical kyphosis. Magdiel Stock MD Magazine Grinder Loader Department of Neurological Surgery [facility] [place] Sherine Sarmiento, [facility] - 10/02/2017 12:54 [...] (baseline from previous TBI ) Neck: in [place] collar Respiratory: CTA bilaterally, lungs symmetrical, equal chest wall rise, no retractions CV: RRR GI: non tender, soft, active BS, last BM 09/30 : Patient voiding without difficulty Extremities: no peripheral edema, wiggles toes and toes pink and well perfused Musculoskeletal: 5/5 orderly strength on right, 3/5 orderly strength on left FEN: on TPN, transitioning [...] AMS & delirium - numerous evaluations by LANDSCAPING SUPERVISOR with trials of PO - now [...] . - C-collar at all times, use LOG TURNER when OOB - Follow-up with Neurosurgery on [...] will decrease scheduled [place]g [phone] Associated attestation - Fidelina Shields MD - 10/02/2017 4:40 PM PDTAttending: I saw and examined Diogenes Temple ([id number]) [facility] and agree with the assessment and plan as outlined in this note and partic ipated in the planning of care. DHT in place and TF advancing - with antipsychotics dosed in conjunction with psychiatry an d weaning haldol slightly. Transition keppra => depakote given potential for agitating side effects of keppra. PICC drawn back to midline position. May need lobsterman enteral access , but is ~4 weeks s/p damage control laparotomy and risk is higher now than it will be in 7- 14 days and if swallow is not improving then will place prior to DC Fidelina Shields MD Magazine Grinder Loader Division of Trauma, Critical Care and Acute Care Surgery Office: [phone] Pager: [phone] Sherine Sarmiento, AGACNP - 10/01/2017 7:27 AM PDTFormatting of [...] (baseline from previous TBI ) Neck: in [place] collar Respiratory: CTA bilaterally, lungs symmetrical, equal chest wall rise, no retractions CV: RRR GI: non tender, soft, active BS, last BM 09/30 : Patient voiding without difficulty Extremities: no peripheral edema, wiggles toes and toes pink and well perfused Musculoskeletal: 5/5 orderly strength on right, 3/5 orderly strength on left FEN: on TPN Heme/ID: [...] AMS & delirium - numerous evaluations by LANDSCAPING SUPERVISOR with trials of PO - now s/p modified barium swallow x2 which indicates aspiration - continue NPO - LANDSCAPING SUPERVISOR reports that patient working on tongue [...] . - C-collar at all times, use LOG TURNER when OOB - Follow-up with Neurosurgery on [...] trauma team and [place]g [id number] Associated attestation - Fidelina Shields MD - 10/02/2017 4:40 PM PDTAttending: I saw and examined Diogenes Temple ([id number]) with KESHAWN Alexander on mornin g rounds 10/01/17 and agree with the assessment and plan as outlined in this note and partic ipated in the planning of care. Will trial DHT placement today, CT head unchanged. Suspect somnolence is medication side ef fect and, if persistent, may need to wean antipsychotic doses. Fidelina Shields MD Magazine Grinder Loader Division of Trauma, Critical Care and Acute Care Surgery Office: [phone] Pager: [phone] Christian Kelley PA-C - 09/30/2017 12:21 PM [...] Fixed and dilated on left Neck: in [place]oga collar Respiratory: CTA bilaterally, lungs symmetrical, equal chest wall rise, no retractions CV: RRR GI: non tender, soft, active BS, last BM 09/30 : Patient voiding without difficulty Extremities: no peripheral edema, wiggles toes and toes pink and well perfused Musculoskeletal: 5/5 orderly strength on right, 3/5 orderly strength on left FEN: on TPN Heme/ID: [...] AMS & delirium - numerous evaluations by LANDSCAPING SUPERVISOR with trials of PO - now s/p modified barium swallow x2 which indicates aspiration - continue NPO - LANDSCAPING SUPERVISOR reports that patient working on tongue [...] . - C-collar at all times, use LOG TURNER when OOB - Follow-up with Neurosurgery on 10/21 with repeat X-rays #Blunt abdominal trauma #Splenic laceration S/p laparotomies x2. Fascia closed 09/02 Wound vac removed by patient, but wound remains duke n/dry/intact. Holbrook removed 09/17. #Left hemothorax Chest tube placed [...] PDTAttending: I saw and examined Diogenes Temple ([id number]) with Christian Kelley PA-C on morning rounds 09/30 and agree with the assessment and plan as outlined in this note and participated in the planning of care. Mentally slower this morning, but non-focal. Received haldol overnight for sleep. Repeat head CT was unchanged so suspect etiology of slowed responsiveness is the antipsychotic dose . LANDSCAPING SUPERVISOR believes that, once collar off, may be able to take PO more effectively and thus will hold off on surgical feeding access. TPN is a temporary solution and if patient remains kaye kierra will trial DHT tomorrow. Working with psychiatry for medication recommendations. Fidelina Shields MD Magazine Grinder Loader Division of Trauma, Critical Care and Acute Care Surgery Office: [phone] Pager: [phone] July Harp PA-C - 09/30/2017 8:23 AM PDTBrief Neurosurgery Wound Check: Wound is dry, without erythema, not fluctuant. No acute swelling. Nylon in place. Will plan to follow peripherally for wound checks and remove nylons on 10/09. JULY HARP PA-C [facility] [address] [place] [address] Christian Begum PA-C - 09/29/2017 7:15 AM [...] and EOMs intact to exam Neck: in [place] collar Respiratory: CTA bilaterally, lungs symmetrical, equal [...] AMS & delirium - numerous evaluations by LANDSCAPING SUPERVISOR with trials of PO - now [...] . - C-collar at all times, use LOG TURNER when OOB - Follow-up with Neurosurgery on 10/21 with repeat X-rays #Blunt abdominal trauma #Splenic laceration S/p laparotomies x2. Fascia closed 09/02 Wound vac removed by patient, but wound remains duke n/dry/intact. Holbrook removed 09/17. #Left hemothorax Chest tube placed [...] PDTAttending: I saw and examined Diogenes Temple ([id number]) with Christian Kelley PA-C on morning rounds 09/29 and agree with the assessment and plan as outlined in this note and participated in the planning of care. Late entry for 09/29/17. Persistent alterations in conscious and dysphagia. Hopefully with ongoing speech therapy a nd when clear to take c-collar off, will improve ability to take PO. While TPN is not an opt imal lobsterman strategy, would prefer not to place surgical feeding tube if possible given r elcadenec recent damage control laparotomy and high risk of Mr. Temple pulling it out. Have tried DHT several times and it seems to worsen delirium and he pulls it out frequently. Tit ration of haldol in conjunction with psychiatry. Fidelina Shields MD Magazine Grinder Loader Division of Trauma, Critical Care and Acute Care Surgery Office: [phone] Pager: [phone] Christian Kelley PA-C - 09/28/2017 1:01 PM [...] he said, who, ariel? And then the ENROLLMENT NURSE helped him make a call to her. [...] and EOMs intact to exam Neck: in [place] collar Respiratory: CTA bilaterally, lungs symmetrical, equal [...] very agitated today. - EKG today with [place] QTc calculated to be 428 - optimize [...] AMS & delirium - numerous evaluations by LANDSCAPING SUPERVISOR with trials of PO - now [...] . - C-collar at all times, use LOG TURNER when OOB - Follow-up with Neurosurgery on 10/21 with repeat X-rays #Blunt abdominal trauma #Splenic laceration S/p laparotomies x2. Fascia closed 09/02 Wound vac removed by patient, but wound remains duke n/dry/intact. Holbrook removed 09/17. #Left hemothorax Chest tube placed [...] more toda y. Chaz Hernandez MD, FACS Magazine Grinder Loader, Trauma, Critical Care and Acute Care Surgery Chaz Hernandez MD - 09/28/2017 10:13 AM PDTTrauma Staff Seen and examined this AM with team. I have concerns abotu behaviour, as he is consistently threatening RN and ancillary staff, even attempting swings. Behavior seems worse at night. I would favor increasing night time Haldol dose, and following EKGs. Chaz Hernandez MD, FACS Magazine Grinder Loader, Trauma, Critical Care and Acute Care [...] Dallin Bourgeois MD Neurosurgery PGY1 | Pager #[phone] Christian Begum PA-C - 09/27/2017 7:31 AM [...] able to have a linear conversation briefly LANDSCAPING SUPERVISOR requesting repeat barium swallow Current meds: [...] incision healing , suture c/d/I Neck: in LOG TURNER Respiratory: unlabored on room air, lungs symmetrical, [...] AMS & delirium - numerous evaluations by LANDSCAPING SUPERVISOR with trials of PO - now [...] . - C-collar at all times, use LOG TURNER when OOB - Follow-up with Neurosurgery on [...] cotinue TPN for now. EM CUNNINGHAM MD [facility] [address] [place] [address] Christian Kelley PA-C - 09/26/2017 6:48 AM [...] posterior scalp crani incision c/d/I Neck: in [place]oga collar Respiratory: unlabored on room air CV: [...] AMS & delirium - numerous evaluations by LANDSCAPING SUPERVISOR with trials of PO - now [...] . - C-collar at all times, use LOG TURNER when OOB - Follow-up with Neurosurgery on [...] Continue NPO and TPN. EM CUNNINGHAM MD [facility] [address] [place] [address] Christian Kelley PA-C - 09/25/2017 7:49 AM [...] HEENT: EOMs intact to exam Neck: in LOG TURNER brace Respiratory: unlabored on room air CV: [...] AMS & delirium - numerous evaluations by LANDSCAPING SUPERVISOR with trials of PO - now [...] . - C-collar at all times, use LOG TURNER when OOB - Follow-up with Neurosurgery on 10/21 with repeat X-rays #Blunt abdominal trauma #Splenic laceration S/p laparotomies x2. Fascia closed 09/02 Wound vac removed by patient, but wound remains duke n/dry/intact. Holbrook removed 09/17. #Left hemothorax Chest tube placed [...] LFTS wnl. Continue TPN. EM CUNNINGHAM MD [facility] [address] [place] [address] Christian Kelley PA-C - 09/24/2017 11:07 AM [...] with agitation Having difficulty swallowing again - LANDSCAPING SUPERVISOR to re-eval and obtain barium swallow [...] HEENT: EOMs intact to exam Neck: in LOG TURNER brace Respiratory: CTA bilaterally, lungs symmetrical, equal chest wall rise, no retractions CV: RRR GI: non distended, last BM 09/23 : good urine output Extremities: SCD's in place, no peripheral edema, wiggles toes and toes pink and well perfu sed Musculoskeletal: 5/ strength in bilateral orderly (but with slightly weaker on left) , 5/ in bilateral knee flexion/extension FEN: on TPN, [...] PRN seroquel dose QHS for insomnia/restlessness at [facility] - Haldol 5mg q12hr prn [...] likely 2/2 AMS & delirium - Failed LANDSCAPING SUPERVISOR eval 09/19 & 09/20, made NPO & dobhoff reinserted 09/21 but pulled overnight - Per LANDSCAPING SUPERVISOR on 09/21, ok for therapeutic pureed [...] . - C-collar at all times, use LOG TURNER when OOB - Follow-up with Neurosurgery on 10/21 with repeat X-rays #Blunt abdominal trauma #Splenic laceration S/p laparotomies x2. Fascia closed 09/02 Wound vac removed by patient, but wound remains duke n/dry/intact. Holbrook removed 09/17. #Left hemothorax Chest tube placed [...] Start abx for dehiscence. EM CUNNINGHAM MD [facility] [address] [place] [address] Ginette Campos PA-C - 09/24/2017 9:31 AM [...] 4 extremities Unable to assess drift. Motor: Vacuum Extractor Operator Bicep Tricep Delt R 5 5 [...] further questions or concerns. Ginette Campos PA-C [facility] [address] [place] [address] cGabriel Atkins stephanie Cleary AGACNP - 09/23/2017 6:32 [...] hiscence, draining minimal serosang fluid Neck: in LOG TURNER brace Respiratory: unlabored on room air CV: [...] PRN seroquel dose QHS for insomnia/restlessness at [facility] - Repeat ECG 09/22 with [...] likely 2/2 AMS & delirium - Failed LANDSCAPING SUPERVISOR eval 09/19 & 09/20, made NPO & dobhoff reinserted 09/21 but pulled overnight - Per LANDSCAPING SUPERVISOR on 09/21, ok for therapeutic pureed [...] . - C-collar at all times, use LOG TURNER when OOB - Follow-up with Neurosurgery on 10/21 with repeat X-rays #Blunt abdominal trauma #Splenic laceration S/p laparotomies x2. Fascia closed 09/02 Wound vac removed by patient, but wound remains duke n/dry/intact. Holbrook removed 09/17. #Left hemothorax Chest tube placed [...] ium improves Sherine Sarmiento, [facility] [place]g [phone] Dallin Deshpande MD - 09/22/2017 8:03 AM PDT NEUROSURGERY [place] PROGRESS NOTE 09/22/2017 | Hospital Day #: 22 | Attending: Chaz Hernnadez MD SUBJECTIVE/INTERVAL EVENTS: - Re-contacted last night [...] Dallin Bourgeois MD Neurosurgery PGY1 | Pager #[phone] [facility] - 09/22/2017 6:52 AM [...] 24hr events: - Therapeutic purees initiated by LANDSCAPING SUPERVISOR yesterday - Trickle feeds via Dobbhoff, pt pulled Dobbhoff yesterday evening- not replaced - TURBINE ASSEMBLER called around 2129 for new left facial droop (see separate notes), CT revealed increa se in SDH from 12 to 17mm with no change in midline shift. [facility] and stroke team [...] sluggish. Slight left facial droop Neck: in [place] collar Respiratory: unlabored on room air CV: [...] PRN seroquel dose QHS for insomnia/restlessness at [facility]- - Repeat ECG 09/22 with Q Tc WNL. - Haldol 5mg q12hr prn for severe agitation #Substance abuse, concern for Alcohol withdrawal - CIWA discontinued 09/08, not scoring. - Thiamine & folate started 09/21 #Dysphagia, risk for aspiration #Protein calorie malnutirtion - likely 2/2 AMS & delirium - Failed LANDSCAPING SUPERVISOR eval 09/19 & 09/20, made NPO & dobhoff reinserted 09/21 but pulled overnight - Per LANDSCAPING SUPERVISOR on 09/21, ok for therapeutic pureed [...] . - C-collar at all times, use LOG TURNER when OOB - Follow-up with Neurosurgery on [...] delirium improves Sherine Sarmiento, [facility] Pg [phone] Associated attestation - Nubia Nieto MD,MPH - 09/22/2017 9:39 PM PDTATTENDING PROGRES S NOTE I personally interviewed and examined the patient today with the trauma team and the nurse practitioner. I participated in the development of and agree with the assessment and plan a s outlined in ACNRei Sarmiento's note. Adding seroquel qHS for sleep hygiene. Nubia Nieto MD, MPH Trauma, Critical Care & Acute Care Surgery [facility] [phone] Sami Black Merle - 09/21/2017 10:25 PM [...] in the morning. Plan: -neuro checks; page [phone] for any decline in neurological examination -pain control -Hard C collar at all times and place LOG TURNER prior to mobilizing OOB. Anticipated duration of Collar/LOG TURNER is 12 weeks -repeat CT head for any new decline in neurological exam and page [phone] -NPO at midnight tonight -please hold tonight's planned dose of Lovenox -further recommendations in the morning Sami Black MD, PhD PGY-3 Resident Neurosurgery [id number] signed by Sami Black at 09/21/2017 10:50 PM [facility] - 09/21/2017 7:10 AM PDTFormatting [...] Provena placem ent 24hr events: - Failed LANDSCAPING SUPERVISOR eval again yest morning, continued NPO [...] reactive. Dobbhoff tube in place Neck: in [place] collar Respiratory: unlabored on room air CV: [...] likely 2/2 AMS & delirium - Failed LANDSCAPING SUPERVISOR eval 09/19 & 09/20, made NPO & dobhoff reinserted yesterday - Trickle feeds started this am at 20ml/hr, increase very slowly by 10ml every 12 hrs to go al of 75 due to hx of mesenteric hematomas and previous inability to tolerate TF - Per LANDSCAPING SUPERVISOR today, ok for therapeutic pureed with [...] . - C-collar at all times, use LOG TURNER when OOB - Follow-up with Neurosurgery on [...] & delirium [place] [phone] Associated attestation - Fidelina Shields MD - 09/21/2017 9:36 PM PDTAttending: I saw and examined Diogenes Temple ([id number]) with KESHAWN Alexander on mornin g rounds [...] enough to re-trial PO. Fidelina Shields MD Magazine Gr[employer] Load[employer] Division of Trauma, Critical Care and Acute Care Surgery Office: [phone] Pager: [phone] Sherine Sarmiento AGACNP - 09/20/2017 7:41 AM [...] haldol given yesterday afternoon for agitation - LANDSCAPING SUPERVISOR paged to re-eval in afternoon after concern for aspiration, made NPO by LANDSCAPING SUPERVISOR - DARNELL SOLANO Current meds: I [...] right pupil 3 and reactive Neck: in [place] collar Respiratory: unlabored on room air CV: [...] thick/pureed d iet. Made NPO yesterday by LANDSCAPING SUPERVISOR after concern for aspiration. This is likely 2/2 waxing & wan ing delirium & AMS - LANDSCAPING SUPERVISOR re-eval today recommend continue NPO d/t overt clinical signs of aspiration - Place Dobbhoff tube and restart feeds, slowly progress to goal - Stop TPN when tolerating tube feeds - LANDSCAPING SUPERVISOR will follow closely, as his AMS [...] . - C-collar at all times, use LOG TURNER when OOB - Follow-up with Neurosurgery on 10/21 with repeat X-rays #Blunt abdominal trauma #Splenic laceration S/p laparotomies x2. Fascia closed 09/02 Wound vac removed by patient, but wound remains duke n/dry/intact. Holbrook removed 09/17. #Left hemothorax Chest tube placed [...] & delirium i [place] Pg [phone] Associated attestation - Fidelina Shields MD - 09/20/2017 9:34 PM PDTAttending: I saw and examined Diogenes Temple ([id number]) with KESHAWN Alexander on mornin g rounds [...] dispo planning when able. Fidelina Shields MD [employer] Division of Trauma, Critical Care and Acute Care Surgery Office: [phone] Pager: [phone] Mary Medrano MD,MPH - 09/19/2017 6:22 AM [...] downgraded from thin to thick liquids by LANDSCAPING SUPERVISOR Current meds: I have independently reviewed [...] intact, small Right fluctuant pseudomeningocele Neck: in [place] collar Respiratory: unlabored on room air CV: [...] DHT on09/19. - Cleared for diet by LANDSCAPING SUPERVISOR, tolerating purees, 749 Calories yesterday - Restart Calorie count: if taking >700 again will be OK for full po diet, otherwise replac e DHT and restart TF - Stop TPN tomorrow regardless - Still considering repeat CT abdomen/pelvis #Dysphagia DHTreplaced overnight 09/07. TF held due to emesis and possible ileus, aspiration risk. DH T pulled overnight on 09/18 - LANDSCAPING SUPERVISOR as able Resolved or chronic issues/Plan: #BIG 3 TBI #Right synthetic cranioplasty Neurosurgery consulted. Non-operative management. Last head CT 09/12 stable. Expected pseudo meningocele. Left-sided deficits consistent with baseline. - Stat head CT for any neurologic decline #C7 bilateral lamina fractures #C6-T2 spinous process fractures Neurosurgery consulted. Non-operative management. Upright cervical X-rays completed on 09/14 . - C-collar at all times, use LOG TURNER when OOB - Follow-up with Neurosurgery on [...] M.D., M.P.H. Neurological Surgery Resident PGY-1 Pager: [phone] Associated attestation - Fidelina Shields MD - 09/19/2017 1:36 PM PDTAttending: I saw and examined Diogenes Temple ([id number]) with the residents on morning rounds 09/19/17 and agree with the assessment and plan as outlined in this note and participated in the plan aashish of care. Improving po intake, will titrate TPN. Plan to DC TPN tomorrow and transition to PO vs PO + TF depending on calorie counts. Once of restraints will begin looking for placement. Fidelina Shields MD Magazine Grinder Loader Division of Trauma, Critical Care and Acute Care Surgery Office: [phone] Pager: [phone] Mary Medrano MD,MPH - 09/18/2017 6:17 AM [...] fluctuant pseudomeningocele,Dobhoff tubein p lace Neck: in [place] collar Respiratory: unlabored on room air CV: [...] holding TF - Cleared for diet by LANDSCAPING SUPERVISOR, tolerating small quantities of purees - Will need repeat CT A/P within 1-2 days #Hypervolemia I&O approaching even. Appears to have been auto-diuresing. - Continue to monitor urine output - Monitor electrolytes, replete prn #Dysphagia DHTreplaced overnight 09/07. TF held due to emesis and possible ileus, aspiration risk. - LANDSCAPING SUPERVISOR as able #C7 bilateral lamina fractures #C6-T2 spinous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 [facility] | | | PRODUCT [...] | + + + + + | [facility] | [address] | [place] [address] | | | SERVICES, | [address] [...] + + + + | PRODUCT | [id number] | | [facility] | | | UNIT [...] + + + + | EXPIRATION | [id number] | | [facility] | | | DATE [...] + + + + | BLOOD | [id number] | | [facility] | | | PRODUCT [...] + + + + + | [facility] | [address] | [place] [address] | | | SERVICES, | [address] [...] LABORATORY | [address] | [place] [address] | | | NATALEE WORTHINGTON | VILMA [...] | + + + + + | [facility] | [address] | [place] [address] | | | SERVICES, NATALEE | VILMA [...] | | | LABORATORY | | | RWANDAN | | | SERVICES, | | | [...] + + + + + | [facility] | [address] | [place] [address] | | | SERVICES, CORE | [address] | | | + + + + + OPERATION RECORD (11/06/2017 12:27 AM PDT) + + | Procedure Note | + + | Magdiel Stock MD - 11/06/2017 12:27 AM PDT Date of Service: 11/05/2017 Attending | | Surgeon: Magdiel Stock MD Private Investigator Surveillance(s): Rg Aiken MD | | Preoperative Diagnoses: [...] his head was placed in a horseshoe quality control head with his C-collar still | | [...] circumferentially around the prior incision, a #1 [place] was used | | to subperiosteally dissect [...] for this encounter.Sonal Nunez, | | [id number] [place], [place] | | [id number] Orina, MDJB/MODLDD: 11/05/2017 20:38:01DT: 11/06/2017 | | 00:27:33Job #: [id number] | |HATTIE/DUC | | | | | | /[id number] | + + CT HEAD WO CONTRAST [...] Surgeon: Magdiel | | | MD Dayami Private Investigator Surveillance: Rg Aiken MD Pre-op Diagnosis: | | [...] PGY-4 Neurological Surgery Pager | | | [phone] | | + + + CAPILLARY BLOOD [...] [facility] | [address] | [place], [place] | | | [place] OF CARE | [address] | [address] | | | TESTS | | | [...] | | GLORIA GENAO OF [employer] | [facility] | [address] | | | TESTS | | | [...] Note | + + | Service Account, mytrax Res In Interface - 11/05/2017 11:31 AM [...] + + + + + | [facility] | [address] | [place] [address] | | | SERVICES, CORE | [address] [...] [facility] | [address] | [place] [address] | | | SERVICES, CORE | [address] [...] | | | LABORATORY | | | RWANDAN | | | SERVICES, | | | [...] the MDRD equation recommended by the | [facility] | | National Kidney [...] | + + + + + | [facility] | [address] | [place] [address] | | | SERVICES, CORE | PARK [...] | + + + + + | [facility] | [address] | [place] [address] | | | NATALEE WORTHINGTON | [address] [...] + + + + | PRODUCT | [id number] | | [facility] | | | UNIT [...] + + + + | EXPIRATION | [id number] | | [facility] | | | DATE [...] + + + + | BLOOD | [id number] | | [facility] | | | PRODUCT [...] + + + + + | [facility] | [address] | [place] [address] | | | SERVICES, | [address] [...] + + + + | PRODUCT | [id number] | | [facility] | | | UNIT [...] + + + + | EXPIRATION | [id number] | | [facility] | | | DATE [...] + + + + | BLOOD | [id number] | | [facility] | | | PRODUCT [...] | + + + + + | [facility] | [address] | [place] [address] | | | SERVICES, | [address] [...] LABORATORY | [address] | [place] [address] | | | NATALEE WORTHINGTON | VILMA [...] [facility] | [address] | [place] [address] | | | SERVICES, | [address] [...] | + + + + + | [facility] | [address] | [place] [address] | | | SERVICES, | [address] [...] + + + + + | [facility] | [address] | [place] [address] | | | SERVICES, CORE | PARK [...] | | CARDIOLOGY | [address] | [address] | | + + + + + [...] + + + + + | [facility] | [address] | [place] [address] | | | ELIN, NATALEE | PARK [...] + + + + + | [facility] | [address] | [place] [address] | | | SERVICES, CORE [...] + | [facility] | [address] | [place] [address] | | | [place] | | | [...] LABORATORY | [address] | [place] [address] | | | NATALEE WORTHINGTON | PARK [...] [facility] | [address] | [place] [address] | | | SERVICES, CORE | PARK [...] | | | LABORATORY | | | RWANDAN | | | SERVICES, | | | [...] the MDRD equation recommended by the | [facility] | | National Kidney Disease Education Program. [...] | + + + + + | [facility] | [address] | [place] [address] | | | SERVICES, CORE | [address] | | | + + + + + MAGNESIUM, PLASMA (11/04/2017 5:59 AM PDT) + +-------+ + + + | Component | Value | Ref Range | Performed | Pathologist | | | | | At | Signature | + +-------+ + + + | MAGNESIUM,P | 2.1 | 1.6 - 2.6 mg/dL | [facility] | | | L[facility]MA | | | [...] [facility] | [address] | [place] [address] | | | SERVICES, NATALEE | VIL[address] [...] | + + + + + | [facility] | [address] | [place] [address] | | | NATALEE WORTHINGTON | VILMA [...] | | | LABORATORY | | | RWANDAN | | | SERVICES, | | | [...] + + + + + | [facility] | [address] | [place] [address] | | | SERVICES, CORE | PARK [...] [facility] | [address] | [place] [address] | | | SERVICES, CORE | PARK [...] | | | LABORATORY | | | RWANDAN | | | SERVICES, | | | [...] the MDRD equation recommended by the | [facility] | | National Kidney [...] | + + + + + | [facility] | [address] | [place] [address] | | | NATALEE WORTHINGTON | VILMA [...] | | CARDIOLOGY | [address] | [address] | | + + + + + [...] + + + + + | [facility] | [address] [facility] [address] [facility] | [place] [address] | | | SERVICES, CORE | [address] [...] | | | LABORATORY | | | RWANDAN | | | SERVICES, | | | [...] the MDRD equation recommended by the | [facility] | | National Kidney [...] | + + + + + | [facility] | [address] | [place] [address] | | | SERVICES, CORE | VILMA [...] | [facility] | [address] [facility] [address] | [place], [place] | | | CARDIOLOGY | [address] | [address] | | + + + + + [...] | | | LABORATORY | | | RWANDAN | | | SERVICES, | | | [...] the MDRD equation recommended by the | [facility] | | National Kidney [...] | + + + + + | [facility] | [address] | [place] [address] | | | SERVICES, CORE | PARK [...] [facility] | [address] | [place] [address] | | | SERVICES, NATALEE | [address] [...] [place] | | | [facility] | [facility] | [address] | | | TESTS | | | [...] [facility] | [address] | [place] [address] | | | SERVICES, CORE | [address] [...] | | | LABORATORY | | | RWANDAN | | | SERVICES, | | | [...] Interpretive Information: <60 mL/min/1.73 sq m | [facility], CORE | | Chronic Kidney Disease [...] | + + + + + | [facility] | [address] [facility] [address] | [place] [address] | | | NATALEE WORTHINGTON | [address] | | | + + + + + [facility] VENOUS DUPLEX LOWER EXTREMITY BILAT [...] Note | + + | Service Account, [employer] In Interface - 10/29/2017 12:13 PM PDT [...] | | [facility] | [address] | [address] | | | TESTS | | | [...] + + + + + | [facility] | [address] | [place] [address] | | | SERVICES, CORE | PARK [...] | | | LABORATORY | | | RWANDAN | | | SERVICES, | | | [...] the MDRD equation recommended by the | [facility] | | National Kidney [...] | + + + + + | [facility] | [address] | [place] [address] | | | SERVICES, CORE | V[address] [...] (H) | 70 - 99 mg/dL | [facility] - | | | [...] + + + | [facility] | [address] | [place], [place] | | | [facility] | [address] | [address] | | | TESTS | | | [...] [facility] | [address] | [place], [place] | | | CARDIOLOGY | [facility] | [address] | | + + + + + [...] [facility] | [address] | [place], [place] | | | [facility] | [facility] | [address] | | | TESTS | | | [...] | [address] | [place], [place] | | | [facility] | [address] | [address] | | | TESTS | | | [...] [facility] MCNAIR | [address] | [place] [address] | | | SERVICES, CORE | PARK [...] + | [facility] | [address] | [place] [address] | | | [place] | | | [...] LABORATORY | [address] | [place] [address] | | | NATALEE WORTHINGTON | PARK [...] + + + + + | [facility] | [address] [facility] [address] | [place] [address] | | | SERVICES, CORE | [address] [...] [facility] | [address] | [place] [address] | | | SERVICES, CORE | PARK [...] | | | LABORATORY | | | RWANDAN | | | SERVICES, | | | [...] + + + + + | [facility] | [address] | [place] [address] | | | NATALEE WORTHINGTON | [address] [...] | + + + + + | [facility] | [address] | [place] [address] | | | SERVICES, NATALEE | [address] [...] | | [facility] | [address] | [address] | | | TESTS | | | [...] [facility] | [address] | [place], [place] | | | [facility] | [address] | [address] | | | TESTS | | | [...] Note | + + | Service Account, [employer] In Interface - 10/28/2017 9:21 AM [...] At | + + + | EXAM: FL CHEST PICC [...] and TPN Procedure | | | location: Unit:[facility] Room: 4 Providers: Attending name: | [...] correct | | | patient, procedure, equipment, operations support analyst and site/side marked as | [...] vein. Catheter lot number: | | | [id number] with a length of 55 cm was [...] P[facility] | [address] | [place], [place] | | | [facility] | [address] | [address] | | | TESTS | | | [...] [place], [place] | | | CARDIOLOGY | [address] | [address] | | + + + + + [...] [facility] | [address] | [place], [place] | | | [facility] | [address] | [address] | | | TESTS | | | [...] | + + + + + | [facility] | [address] | [place] [address] | | | NATALEE WORTHINGTON | [address] [...] | | | LABORATORY | | | RWANDAN | | | SERVICES, | | | [...] | + + + + + | [facility] | [address] | [place] [address] | | | SERVICES, CORE | [address]ARK [...] (H) | 70 - 99 mg/dL | [facility] - | | | [...] | | [facility] | [address] | [address] | | | TESTS | | | [...] | [address] | [place], [place] | | | [facility] | [facility] | [address] | | | TESTS | | | [...] (H) | 70 - 99 mg/dL | [facility] - | | | [...] RAPHAELAM | [address] | [place], [place] | | | [facility] | [address] | [address] | | | TESTS | | | [...] [facility] | [address] | [place] [address] | | | SERVICES, CORE | [address] [...] | | | LABORATORY | | | RWANDAN | | | SERVICES, | | | [...] the MDRD equation recommended by the | [facility] | | National Kidney [...] | + + + + + | [facility] | [address] | [place] [address] | | | NATALEE WORTHINGTON | VILMA [...] - [facility] | [address] | [place], [place] | | | [facility] | [address] | [address] | | | TESTS | | | [...] | | | LABORATORY | | | RWANDAN | | | SERVICES, | | | [...] the MDRD equation recommended by the | [facility] | | National Kidney [...] | + + + + + | [facility] | [address] | [place] [address] | | | SERVICES, CORE | VILMA [...] 87 | 70 - 99 mg/dL | [facility] - | | | [...] | | [facility] | [address] | [address] | | | TESTS | | | [...] | | CARDIOLOGY | [address] | [address] | | + + + + + [...] | | [facility] | [address] | [address] | | | TESTS | | | [...] OF | [address] | [place], [place] | | | CARDIOLOGY | [address] | [address] | | + + + + + [...] + + + + + | [facility] | [address] | [place] [address] | | | SERVICES, CORE | [address]IL[address] [...] - | | | | | | [facility] | | + + + + + + + + | Specimen | + + | Blood - Blood | | (substance) | + + + + + + + | Performing | Address | City/State/Zipcode | Phone Number | | Organization | | | | + + + + + | [facility] | [address] | [place] [address] | | | [facility] [...] + + + + + | [facility] | [address] | [place] [address] | | | SERVICES, CORE | [address] [...] | + + + + + | [facility] | [address] [facility] [address] | [place] [address] | | | SERVICES, CORE | PARK [...] | + + + + + | [facility] | [address] | [place] [address] | | | NATALEE WORTHINGTON | VILMA [...] LABORATORY | [address] | [place] [address] | | | SERVICES, CORE | PARK [...] + + + + + | [facility] | [address] | [place] [address] | | | SERVICES, CORE | VILMA [...] LABORATORY | [address] | [place] [address] | | | SERVICES, CORE | PARK [...] + + + + + | [facility] | [address] | [place] [address] | | | SERVICES, CORE | VILMA [...] LABORATORY | [address] | [place] [address] | | | SERVICES, CORE | PARK [...] [facility] | [address] | [place] [address] | | | SERVICES, CORE | VILMA [...] [facility] | [address] | [place] [address] | | | SERVICES, CORE | PARK [...] | | | LABORATORY | | | RWANDAN | | | SERVICES, | | | [...] the MDRD equation recommended by the | [facility] | | National Kidney [...] | + + + + + | [facility] | [address] | [place] [address] | | | SERVICES, CORE | [...] | | | correct patient, procedure, equipment, operations support analyst and site/side | | | [...] | area Basilic vein. Catheter lot number: [id number] with a length of 55 | | [...] At | + + + | EXAM: FL CHEST 1 [...] [facility] | [address] | [place], [place] | | | [facility] | [address] | [address] | | | TESTS | | | [...] given. Flexible endoscopy was performed using the [employer] scope. | | | After advancing through [...] | | Surgical Critical Care, PGY7 Pager: [phone] | | + + + CAPILLARY BLOOD [...] | | [facility] | [address] | [address] | | | TESTS | | | [...] | [address] | [place], [place] | | | [facility] | [address] | [address] | | | TESTS | | | [...] | | | LABORATORY | | | RWANDAN | | | SERVICES, | | | [...] + + + + + | [facility] | [address] | [place] [address] | | | ELIN, NATALEE | [address] [...] + + + + + | [facility] | [address] | [place] [address] | | | SERVICES, CORE | VILMA [...] | [address] | [place], [place] | | | [facility] | [address] | [address] | | | TESTS | | | [...] effect October 10 | [facility] | | 2017. New reference [...] + + + + + | [facility] | [address] | [place] [address] | | | SERVICES, [facility] | [address] | | | + [...] | | | LABORATORY | | | RWANDAN | | | SERVICES, | | | [...] + + + + + | [facility] | [address] | [place] [address] | | | SERVICES, CORE | PARK [...] | | CARDIOLOGY | [address] | [address] | | + + + + + IR GASTROSTOMY TUBE EXCHANGE (10/22/2017 2:42 PM PDT) + + | Specimen | + + | | + + + + + | Narrative | Performed At | + + + | Procedure: Gastrostomy tube exchange Primary attending | [facility] | | specialist wound care: Shade Nix M.D. Preoperative diagnosis: | RADIOLOGY VOICE | | Malfunctioning Gastrostomy tube Postoperative diagnosis: Same | RECOGNITION | | Operations: Operation 1. Removal of existing Gastrostomy tube | | | over a guide wire Operation 2. Placement of 24 Chinese GABRIEL | | | gastrostomy over guide [...] a stiff glide wire the new 24 Chinese gastrostomy tube was | | | inserted. [...] Procedure: | | Gastrostomy tube exchangePrimary attending specialist wound care: Shade Nix, | | BrynPreoperative diagnosis: Malfunctioning Gastrostomy tubePostoperative diagnosis: | | SameOperations:Operation 1. Removal of existing Gastrostomy tube over a guide | | wireOperation 2. Placement of 24 Chinese GABRIEL gastrostomy over guide wireNo sedation was [...] glide wire the | | new 24 Chinese gastrostomy tube was inserted. The position of [...] stiff g lide wire the new 24 Chinese | |gastrostomy tube was inserted. The position [...] Note | + + | Service Account, [employer] In Interface - 10/22/2017 10:34 AM [...] DEPT OF | [address] | [place], [place] | | | CARDIOLOGY | [address] | [address] | | + + + + + [...] + + + + + | [facility] | [address] | [place] [address] | | | SERVICES, CORE | [address] [...] | | | LABORATORY | | | RWANDAN | | | SERVICES, | | | [...] | + + + + + | [facility] | [address] | [place] [address] | | | SERVICES, CORE | [address] | | | + + + + + 12 LEAD ECG (10/21/2017 2:12 PM PDT) + + + + + + | Component | Value | Ref Range | Performed | Pathologist | | | | | At | Signature | + + + + + + | VENTRICULAR | 61 | bpm | [facility] | | | [...] | + + + + + | [facility] | [address] | [place], [place] | | | CARDIOLOGY | [address] | [address] | | + + + + + [...] | | | LABORATORY | | | RWANDAN | | | SERVICES, | | | [...] [facility] | [address] | [place] [address] | | | SERVICES, CORE | [address] [...] [facility] | [address] | [place] [address] | | | SERVICES, CORE | VILMA [...] + + | [facility] | [address] | [place], [place] | | | CARDIOLOGY | [address] | [address] | | + + + + + [...] + + + + + | [facility] | [address] | [place] [address] | | | SERVICES, CORE | [address]ILMA [...] | | | LABORATORY | | | RWANDAN | | | SERVICES, | | | [...] | + + + + + | [facility] | [address] | [place] [address] | | | SERVICES, CORE | [address] | | | + + + + + 12 LEAD ECG (10/17/2017 9:34 AM PDT) + + + + + + | Component | Value | Ref Range | Performed | Pathologist | | | | | At | Signature | + + + + + + | VENTRICULAR | 58 | bpm | [facility] | | | [...] + + + + | QTC-BABRAYDONTT | 459 | ms | [facility]PT [...] | + + + + + | [facility] | [address] | [place], [place] | | | CARDIOLOGY | [address] | [address] | | + + + + + [...] | | | LABORATORY | | | RWANDAN | | | SERVICES, | | | [...] | + + + + + | [facility] | [address] | [place] [address] | | | SERVICES, CORE | PARK [...] | + + + + + | [facility] | [address] | [place] [address] | | | NATALEE WORTHINGTON | VILMA [...] + | [facility] | [address] [facility] [address] | [place], [place] | | | CARDIOLOGY | [address] | [address] | | + + + + + [...] | | | LABORATORY | | | RWANDAN | | | SERVICES, | | | [...] the MDRD equation recommended by the | [facility] | | National Kidney [...] [facility] | [address] | [place] [address] | | | SERVICES, CORE | [address] [...] + + + + + | [facility] | [address] | [place] [address] | | | SERVICES, CORE | [address] [...] + + | QTC-BAMARIA DEL CARMEN | 458 | ms | [facility] DEPT [...] OF | [address] | [place], [place] | | | CARDIOLOGY | [facility] | [address] | | + + + + + [...] | [address] | [place], [place] | | | [facility] | [address] | [address] | | | TESTS | | | [...] | + + + + + | [facility] | [address] | [place] [address] | | | NATALEE WORTHINGTON | [address] [...] [place] | | | [facility] | [facility] | [address] | | | TESTS | | | [...] | + + + + + | [facility] | [address] | [place], [place] | | | CARDIOLOGY | [address] | [address] | | + + + + + [...] [facility] | [address] | [place] [address] | | | NATALEE WORTHINGTON | [address] [...] | | | LABORATORY | | | RWANDAN | | | SERVICES, | | | [...] + + + + + | [facility] | [address] | [place] [address] | | | SERVICES, CORE | [address] [...] + + + + + | [facility] | [address] | [place] [address] | | | SERVICES, CORE | PARK [...] | [place], [place] | | | [facility] | [address] | [address] | | | TESTS | | | [...] - [facility] | [address] | [place], [place] | | | [facility] | [address] | [address] | | | TESTS | | | [...] + + + + + | [facility] | [address] | [place] [address] | | | SERVICES, CORE | [address] [...] | | | LABORATORY | | | RWANDAN | | | SERVICES, | | | [...] + + + + + | [facility] | [address] | [place] [address] | | | SERVICES, NATALEE | [address] | | | + + + + + OPERATION RECORD (10/12/2017 8:50 PM PDT) + + | Procedure Note | + + | Pilar Cotto MD - 10/12/2017 8:50 PM PDT Date of Service: 10/12/2017 | | Attending Surgeon: Chaz Hernandez MD Private Investigator Surveillance(s): Randell Dixon M.D., | | fellow. George [...] saline. We then | | placed a 19-Chinese drain deep into the abscess cavity, tracking [...] 10/12/2017 19:50:06DT: 10/12/2017 20:50:54Job #: | | [id number] | + + X-RAY PORTABLE CHEST 1 VIEW (10/12/2017 7:50 PM PDT) + + | Specimen | + + | | + + + + + | Narrative | Performed At | + + + | EXAM: FL CHEST 1 [...] | [address] | [place], [place] | | | [facility] | [address] | [address] | | | TESTS | | | [...] [facility] | [address] | [place] [address] | | | SERVICES, CORE | [address]ARK [...] | | | LABORATORY | | | RWANDAN | | | SERVICES, | | | [...] the MDRD equation recommended by the | [facility] | | National Kidney [...] [facility] | [address] | [place] [address] | | | SERVICES, CORE | [address] [...] to administering the 0300 dose on | [facility] | | 10/12, thanks! | LABORATORY | | | SERVICES, CORE | + + + + + + + + | Performing | Address | City/State/Zipcode | Phone Number | | Organization | | | | + + + + + | [facility] | [address] | [place] [address] | | | ELIN, NATALEE | [address] [...] [place], [place] | | | CARDIOLOGY | [address] | [address] | | + + + + + [...] | | CARDIOLOGY | [address] | [address] | | + + + + + [...] [facility] | [address] | [place] [address] | | | SERVICES, CORE | [address]ARK [...] [facility] | [address] | [place] [address] | | | SERVICES, CORE | [address] [...] | | | LABORATORY | | | RWANDAN | | | SERVICES, | | | [...] the MDRD equation recommended by the | [facility] | | National Kidney Disease Education Program. [...] | + + + + + | [facility] | [address] | [place] [address] | | | ELIN, CORE | [address] | | | + + + + + PROCEDURE NOTE (10/10/2017 10:00 PM PDT) + + + | Narrative | Performed At | + + + | Darius Link MD 10/12/2017 11:11 AM OPERATIVE REPORT | | | DATE OF OPERATION: 10/10/2017 ATTENDING SURGEON: 1. Dr. Hernandez | | | BLENDING LINE ATTENDANT: 1. Darius Link MD INDICATIONS: Dysphagia | | | and need for lobsterman nutrition access PREOPERATIVE DIAGNOSIS: | | | [...] | | | [place] [id number] Chief Resident | | | Neurosurgery | [...] [facility] | [address] | [place] [address] | | | SERVICES, CORE | VILMA [...] | | | LABORATORY | | | RWANDAN | | | SERVICES, | | | [...] the MDRD equation recommended by the | [facility] | | National Kidney [...] | + + + + + | [facility] | [address] | [place] [address] | | | SERVICES, CORE | PARK [...] [facility] | [address] | [place] [address] | | | SERVICES, NATALEE | [address] | | | + + + + + OPERATION RECORD (10/10/2017 12:40 PM PDT) + + | Procedure Note | + + | Magdiel Stock MD - 10/10/2017 12:40 PM PDT Date of Service: 10/10/2017 Attending | | Surgeon: Magdile Stock MD Private Investigator Surveillance(s): Cecilia Jackson, | | . Preoperative Diagnoses: [...] the note for this encounter.Sonal Nunez MDOHSU [id number] [facility] | | [place] [id number] Orina, MDFA/MODLDD: | | 10/10/2017 11:52:15DT: 10/10/2017 12:40:41Job #: [id number] | | | | | |I was present for the critical portions of the procedure as described in the note for this encounter. | | | |Magdiel Stock MD | | | |Magdiel Stock MD | |[address] | |[address] [facility] | |[facility] | |[place] [address] | |[phone] | | | | | |Magdiel Stock MD | |FAH/MODL | | | | | | /[id number] | + + X-RAY ABDOMEN 1 VIEW [...] + | [facility] | [address] | [place] [address] | | | [place] | | | [...] + + + + | [facility] | [address] | [place] [address] | | | [place] | | | | + + + [...] Gram Stain: No squamous epithelial cells | [place] | | Many polymorphonuclear cells No organisms seen | | + + + + + + + + | Performing | Address | City/State/Zipcode | Phone Number | | Organization | | | | + + + + + | [facility] - | [address] | [place] [address] | | | [place] | | | | + + + [...] + | [facility] - | [address] | [place] [address] | | | [place] | | | [...] + | [facility] - | [address] | [place] [address] | | | [place] | | | [...] + | [facility] | [address] | [place] [address] | | | [place] | | | [...] + | [facility] | [address] | [place] [address] | | | [place] | | | [...] - | | | | | | [facility] | | + + + [...] Gram Stain: No squamous epithelial cells | [place] | | Few polymorphonuclear cells No organisms seen | | + + + + + + + + | Performing | Address | City/State/Zipcode | Phone Number | | Organization | | | | + + + + + | [facility] | [address] | [place] [address] | | | [place] | | | [...] | | cells No organisms seen | [facility] | + + + + + + + + | Performing | Address | City/State/Zipcode | Phone Number | | Organization | | | | + + + + + | [facility] | [address] | [place] [address] | | | [place] | | | [...] | + + + + + | [facility] - | [address] | [place] [address] | | | [place] | | | [...] Gram Stain: No squamous epithelial cells | [place] | | Moderate polymorphonuclear cells No organisms seen | | + + + + + + + + | Performing | Address | City/State/Zipcode | Phone Number | | Organization | | | | + + + + + | [facility] - | [address] | [place] [address] | | | [place] | | | | + + + [...] detected | [facility] - | | | [place] | + + + + + + + + | Performing | Address | City/State/Zipcode | Phone Number | | Organization | | | | + + + + + | [facility] | [address] | [place] [address] | | | [place] | | | | + + + [...] + | [facility] | [address] | [place] [address] | | | [place] | | | [...] cells | [facility] | | Moderate polymorphonuclear cells No organisms seen | | + + + + + + + + | Performing | Address | City/State/Zipcode | Phone Number | | Organization | | | | + + + + + | [facility] | [address] | [place] [address] | | | [place] | | | | + + + [...] + | [facility] | [address] | [place] [address] | | | [place] | | | | + + + [...] + | [facility] | [address] | [place] [address] | | | [place] | | | [...] Gram Stain: No squamous epithelial cells | [place] | | Moderate polymorphonuclear cells No organisms seen | | + + + + + + + + | Performing | Address | City/State/Zipcode | Phone Number | | Organization | | | | + + + + + | [facility] - | [address] | [place] [address] | | | [place] | | | | + + + [...] + | [facility] | [address] | [place] [address] | | | [facility] | | | | + + + [...] [facility] | [address] | [place] [address] | | | SERVICES, CORE | VILMA [...] | + + + + + | [facility] | [address] | [place] [address] | | | SERVICES, CORE | PARK [...] [facility] | [address] | [place] [address] | | | SERVICES, NATALEE | VILMA [...] | | | LABORATORY | | | RWANDAN | | | SERVICES, | | | [...] | + + + + + | [facility] | [address] | [place] [address] | | | SERVICES, CORE | VILMA [...] [place], [place] | | | CARDIOLOGY | [address] | [address] | | + + + + + [...] + + + + | PRODUCT | [id number] | | [facility] | | | UNIT [...] + + + + | EXPIRATION | [id number] | | [facility] | | | DATE [...] + + + + | BLOOD | [id number] | | [facility] | | | PRODUCT [...] LABORATORY | [address] | [place] [address] | | | SERVICES, | [address] [...] + + + + | PRODUCT | [id number] | | [facility] | | | UNIT [...] + + + + | EXPIRATION | [id number] | | [facility] | | | DATE [...] + + + + | BLOOD | [id number] | | [facility] | | | PRODUCT [...] | + + + + + | [facility] | [address] | [place] [address] | | | SERVICES, | [address] [...] [facility] | [address] | [place] [address] | | | SERVICES, | [address] [...] [facility] | [address] | [place] [address] | | | SERVICES, | [address] [...] + + + + + | [facility] | [address] | [place] [address] | | | SERVICES, | [address] [...] + + + + + | [facility] | [address] | [place] [address] | | | SERVICES, CORE | PARK [...] OF | [address] | [place], [place] | | | CARDIOLOGY | [address] | [address] | | + + + + + [...] Note | + + | Service Account, [employer] Interface - 10/08/2017 10:47 AM PDT [...] POINT OF CARE | [address] | [address] | | | TESTS | | | [...] | + + + + + | [facility] | [address] | [place] [address] | | | SERVICES, NATALEE | VILMA [...] [facility] | [address] | [place] [address] | | | SERVICES, NATALEE | VILMA [...] | | | LABORATORY | | | RWANDAN | | | SERVICES, | | | [...] the MDRD equation recommended by the | [facility] | | National Kidney Disease Education Program. [...] + + + + + | [facility] | [address] | [place] [address] | | | SERVICES, CORE [...] | [address] | [place], [place] | | | GL[facility]IA GENAO OF CARE | [address] | [address] | | | TESTS | | | [...] RAPHAELAM | [address] | [place], [place] | | | [facility] CARE | [address] | [address] | | | TESTS | | | [...] | | [facility]IA GE[facility] | [address] | [address] | | | TESTS | | | [...] | [address] | [place], [place] | | | GOLRIA GENAO OF CARE | [address] | [address] | | | TESTS | | | [...] PIYUSH | [address] | [place], [place] | | | EIGHT[facility] EIGHT POINT OF CARE | [address] | [address] | | | TESTS | | | [...] [facility] | [address] | [place] [address] | | | SERVICES, CORE | PARK [...] + + + + + | [facility] | [address] [facility] | [place] [address] | | | SERVICES, CORE | VILMA [...] | | | LABORATORY | | | RWANDAN | | | SERVICES, | | | [...] the MDRD equation recommended by the | [facility] | | National Kidney [...] | + + + + + | [facility] | [address] | [place] [address] | | | SERVICES, CORE | VILMA [...] 99 | 70 - 99 mg/dL | [facility] - | | | [...] | [address] | [place], [place] | | | [facility] | [address] | [address] | | | TESTS | | | [...] | | [facility]IA GE[facility]O [facility] CARE | [address] | [address] | | | TESTS | | | [...] OF | [address] | [place], [place] | | | CARDIOLOGY | [facility] | [address] | | + + + + + [...] RAPHAELAM | [address] | [place], [place] | | | [facility] | [facility] | [address] | | | TESTS | | | [...] [facility] | [address] | [place] [address] | | | NATALEE WORTHINGTON | [address]ARK [...] + + + + + | [facility] | [address] [facility] [facility] | [place] [address] | | | SERVICES, CORE | PARK [...] | | | LABORATORY | | | RWANDAN | | | SERVICES, | | | [...] | + + + + + | [facility] | [address] | [place] [address] | | | SERVICES, CORE | VILMA [...] (H) | 70 - 99 mg/dL | [facility] - | | | [...] + + + | [facility] | [address] | [place], [place] | | | [facility] | [address] | [address] | | | TESTS | | | [...] POINT OF CARE | [address] | [address] | | | TESTS | | | [...] - MARQU[facility] | [address] | [place], [place] | | | [facility]ARE | [address] | [address] | | | TESTS | | | [...] | [address] | [place], [place] | | | [facility] | [address] | [address] | | | TESTS | | | [...] | [address] | [place], [place] | | | CARDIOLOGY | [facility] | [address] | | + + + + + [...] + + + + + | [facility] | [address] | [place] [address] | | | SERVICES, CORE | VILMA [...] LABORATORY | [address] | [place] [address] | | | SERVICES, CORE | PARK [...] | | | LABORATORY | | | RWANDAN | | | SERVICES, | | | [...] | + + + + + | [facility] | [address] | [place] [address] | | | NATALEE WORTHINGTON | VILMA [...] (H) | 70 - 99 mg/dL | [facility] - | | | [...] RAPHAELAM | [address] | [place], [place] | | | [facility] CARE | [address] | [address] | | | TESTS | | | [...] | | [facility] GE[facility] | [facility] | [address] | | | TESTS | | | [...] MARQUAM | [address] | [place], [place] | | | [facility] CARE | [facility] | [address] | | | TESTS | | | [...] (H) | 70 - 99 mg/dL | [facility] - | | | [...] RAPHAELAM | [address] | [place], [place] | | | [facility] GE[facility] | [address] | [address] | | | TESTS | | | [...] | | [facility] | [facility] | [address] | | | TESTS | | | [...] [facility] | [address] | [place] [address] | | | SERVICES, CORE | [address] | | | + + + + + MAGNESIUM, PLASMA (10/04/2017 5:28 AM PDT) + +-------+ + + + | Component | Value | Ref Range | Performed | Pathologist | | | | | At | Signature | + +-------+ + + + | MAGNESIUM,P | 2.0 | 1.6 - 2.6 mg/dL | [facility] | | | LASMA [...] LABORATORY | [address] | [place] [address] | | | SERVICES, NATALEE | VILMA [...] | | | LABORATORY | | | RWANDAN | | | SERVICES, | | | [...] + + + + + | [facility] | [address] | [place] [address] | | | SERVICES, CORE | VILMA [...] | | [facility] | [address] | [address] | | | TESTS | | | [...] - PIYUSH | [address] | [place], [place] | | | [facility]ARE | [address] | [address] | | | TESTS | | | [...] + + + + + | [facility] | [address] | [place] [address] | | | SERVICES, CORE | VILMA [...] by | | | | | | [employer],500 | | | | | | Rogelio Pickard, [employer],[place] | | | | | | [id number] | | | | | | [phone].[employer]. | | | | | | Gui [...] [facility] | [address] | [place], [place] | | | [facility] | | [address] | | + + + + + [...] [facility] | [address] | [place] [address] | | | SERVICES, CORE | PARK [...] [facility] | [address] | [place] [address] | | | SERVICES, CORE | [address] [...] modified from | [facility] | | original flipping machine operator's approved specifications. The performance | LABORATORY | | of the SALES SUPPORT ENGINEER HIV Combo test, with or without confirmation, [...] | + + + + + | [facility] | [address] | [place] [address] | | | SERVICES, SPECIAL | VILMA [...] (H) | 70 - 99 mg/dL | [facility] - | | | [...] | | [facility]IA [facility] | [address] | [address] | | | TESTS | | | [...] POINT OF CARE | [address] | [address] | | | TESTS | | | [...] [facility] | [address] | [place] [address] | | | SERVICES, CORE | VILMA [...] [facility] | [address] | [place] [address] | | | SERVICES, CORE | PARK [...] | | | LABORATORY | | | RWANDAN | | | SERVICES, | | | [...] the MDRD equation recommended by the | [facility] | | National Kidney [...] | + + + + + | [facility] | [address] | [place] [address] | | | ELIN, NATALEE | VILMA [...] + | [facility] | [address] | [place], [place] | | | [facility] | [address] | [address] | | | TESTS | | | [...] | | GL[facility]IA GENAO OF [facility] | [address] | [address] | | | TESTS | | | [...] + + | QTC-BAMARIA DEL CARMEN | 484 | ms | [facility] [...] | + + + + + | [facility] | [address] | [place], [place] | | | CARDIOLOGY | [address] | [address] | | + + + + + [...] At | + + + | EXAM: FL CHEST 1 [...] Service Account, [employer] In Interface - 10/02/2017 2:07 PM [...] | | GL[facility]IA GENAO OF CARE | [address] | [address] | | | TESTS | | | | + + + + + X-RAY PORTABLE CHEST 1 VIEW (10/02/2017 8:56 AM PDT) + + | Specimen | + + | | + + + + + | Narrative | Performed At | + + + | EXAM: FL CHEST 1 [...] MARKHRISAM | [address] | [place], [place] | | | [facility] | [address] | [address] | | | TESTS | | | [...] [facility] | [address] | [place] [address] | | | NATALEE WORTHINGTON | VILMA [...] + + + + + | [facility] | [address] [facility] | [place] [address] | | | SERVICES, CORE | VILMA [...] | | | LABORATORY | | | RWANDAN | | | SERVICES, | | | [...] | + + + + + | [facility] | [address] | [place] [address] | | | SERVICES, CORE | VILMA [...] (H) | 70 - 99 mg/dL | [facility] - | | | [...] + + + | [facility] | [address] | [place], [place] | | | [facility]ARE | [address] | [address] | | | TESTS | | | [...] | | [facility] | [facility] | [address] | | | TESTS | | | [...] [place] | | | [facility] | [address] | [address] | | | TESTS | | | [...] Note | + + | Service Account, [employer] In Interface - 10/01/2017 11:34 AM PDT [...] | | [facility] | [address] | [address] | | | TESTS | | | [...] | + + + + + | [facility] | [address] | [place] [address] | | | NATALEE WORTHINGTON | VILMA [...] | + + + + + | [facility] | [address] | [place] [address] | | | NATALEE WORTHINGTON | PARK [...] | | | LABORATORY | | | RWANDAN | | | SERVICES, | | | [...] | + + + + + | [facility] | [address] | [place] [address] | | | SERVICES, CORE | PARK [...] (H) | 70 - 99 mg/dL | [facility] - | | | [...] | | [facility] | [facility] | [address] | | | TESTS | | | [...] | [facility] | [address] | [place], [place] | | | [facility] | [address] | [address] | | | TESTS | | | [...] | | CARDIOLOGY | [address] | [address] | | + + + + + [...] Note | + + | Service Account, [employer] In Interface - 09/30/2017 1:28 PM [...] | | [facility] | [address] | [address] | | | TESTS | | | [...] | [address] | [place], [place] | | | [facility] GE[facility]O [facility] CARE | [address] | [address] | | | TESTS | | | [...] | + + + + + | [facility] | [address] | [place] [address] | | | SERVICES, CORE | PARK [...] [facility] | [address] | [place] [address] | | | SERVICES, CORE | PARK [...] | | | LABORATORY | | | RWANDAN | | | SERVICES, | | | [...] the MDRD equation recommended by the | [facility] | | National Kidney [...] | + + + + + | [facility] | [address] | [place] [address] | | | NATALEE WORTHINGTON | VILMA [...] | [address] | [place], [place] | | | [facility] OF CARE | [facility] | [address] | | | TESTS | | | [...] | [address] | [place], [place] | | | [facility] GE[facility]O [facility] CARE | [address] | [address] | | | TESTS | | | [...] RAPHAELAM | [address] | [place], [place] | | | [facility] | [address] | [address] | | | TESTS | | | [...] | [address] | [place], [place] | | | CARDIOLOGY | [address] | [address] | | + + + + + [...] | [address] | [place] | | | [facility] | [address] | [address] | | | TESTS | | | [...] + + + + + | [facility] | [address] | [place] [address] | | | SERVICES, CORE | VILMA [...] | | | LABORATORY | | | RWANDAN | | | SERVICES, | | | [...] [facility] | [address] | [place] [address] | | | SERVICES, CORE [...] + + + + + | [facility] | [address] | [place] [address] | | | SERVICES, CORE | PARK [...] | [address] | [place], [place] | | | [facility] | [address] | [address] | | | TESTS | | | [...] MARKHRISAM | [address] | [place], [place] | | | [facility] | [address] | [address] | | | TESTS | | | [...] | [address] | [place], [place] | | | JOHN GENAO | [address] | [address] | | | TESTS | | | [...] + + + + | QTC-BABRAYDONTT | 454 | ms | [facility] DE[facility] [...] DEPT OF | [address] | [place], [place] | | | CARDIOLOGY | [facility] | [address] | | + + + + + CAPILLARY BLOOD GLUCOSE (NO CHG), POC (09/28/2017 6:47 AM PDT) + +---------+ + + + | Component | Value | Ref Range | Performed | Pathologist | | | | | At | Signature | + +---------+ + + + | BLOOD | 147 (H) | 70 - 99 mg/dL | [facility] - | | | [...] | [address] | [place], [place] | | | [facility] | [address] | [address] | | | TESTS | | | [...] | + + + + + | [facility] | [address] | [place] [address] | | | NATALEE WORTHINGTON | VILMA [...] + + + + + | [facility] | [address] [facility] [address] | [place] [address] | | | SERVICES, NATALEE | VILMA [...] | | | LABORATORY | | | RWANDAN | | | SERVICES, | | | [...] | + + + + + | [facility] | [address] | [place] [address] | | | SERVICES, CORE | VILMA [...] (H) | 70 - 99 mg/dL | [facility] - | | | [...] | | [facility] | [address] | [address] | | | TESTS | | | [...] [place] | | | [facility] | [address] | [address] | | | TESTS | | | [...] poorly cleared with dry swallows. Please see [facility] report for full details | | [...] | | [facility] | [facility] | [address] | | | TESTS | | | [...] - [facility] | [address] | [place], [place] | | | [facility] | [address] | [address] | | | TESTS | | | [...] | + + + + + | [facility] | [address] | [place] [address] | | | SERVICES, CORE [...] [facility] | [address] | [place] [address] | | | SERVICES, CORE | PARK [...] | | | LABORATORY | | | RWANDAN | | | SERVICES, | | | [...] the MDRD equation recommended by the | [facility] | | National Kidney [...] + + + + + | [facility] | [address] | [place] [address] | | | ELIN, NATALEE | VILMA [...] (H) | 70 - 99 mg/dL | [facility] - | | | [...] | | [facility] | [address] | [address] | | | TESTS | | | [...] [facility] | [address] | [place], [place] | | | [facility] | [address] | [address] | | | TESTS | | | [...] + + + | ANA LILIA-HALIMA | 466 | ms | [facility] [...] + | [facility] | [address] [facility] [address] | [place], [place] | | | CARDIOLOGY | [address] | [address] | | + + + + + [...] | | [facility]ARE | [address] | [address] | | | TESTS | | | [...] | [address] | [place], [place] | | | [facility] CARE | [address] | [address] | | | TESTS | | | [...] - [facility]USH | [address] | [place], [place] | | | [facility] | [address] | [address] | | | TESTS | | | [...] + + + + + | [facility] | [address] | [place] [address] | | | SERVICES, CORE | VILMA [...] + + + + + | [facility] | [address] [facility] [address] | [place] [address] | | | SERVICES, CORE | PARK [...] | | | LABORATORY | | | RWANDAN | | | SERVICES, | | | [...] the MDRD equation recommended by the | [facility] | | National Kidney [...] | + + + + + | [facility] | [address] | [place] [address] | | | SERVICES, CORE | VILMA [...] (H) | 70 - 99 mg/dL | [facility] - | | | [...] + + + + + | [facility] PICE[facility] | [address] | [place], [place] | | | [facility] | [address] | [address] | | | TESTS | | | [...] | + + + + + | [facility] | [address] | [place] [address] | | | SERVICES, CORE | PARK [...] [facility] | [address] | [place] [address] | | | SERVICES, CORE | VILMA [...] | | | LABORATORY | | | RWANDAN | | | SERVICES, | | | [...] the MDRD equation recommended by the | [facility] | | National Kidney [...] [facility] | [address] | [place] [address] | | | SERVICES, CORE | VILMA [...] OF | [address] | [place], [place] | | | CARDIOLOGY | [address] | [address] | | + + + + + [...] Note | + + | Service Account, RadiPolyplus-transfection Res In Interface - 09/24/2017 4:09 PM [...] + + + + + | [facility] | [address] | [place] [address] | | | SERVICES, CORE | VILMA [...] | | | LABORATORY | | | RWANDAN | | | SERVICES, | | | [...] [facility] | [address] | [place] [address] | | | SERVICES, CORE | PARK [...] | + + + + + | [facility] | [address] [facility] [address] | [place] [address] | | | NATALEE WORTHINGTON | VILMA [...] [facility] | [address] | [place] [address] | | | SERVICES, CORE | PARK [...] [facility] | [address] | [place] [address] | | | ELIN, NATALEE | VILMA [...] | | | LABORATORY | | | RWANDAN | | | SERVICES, | | | [...] | + + + + + | [facility] | [address] | [place] [address] | | | SERVICES, CORE | VILMA [...] | | [facility] | [address] | [address] | | | TESTS | | | [...] + | [facility]LENA [facility] | [address] | [place], [place] | | | [facility] | [address] | [address] | | | TESTS | | | [...] [facility] | [address] | [place] [address] | | | NATALEE WORTHINGTON | [address] [...] | | CARDIOLOGY | [address] | [address] | | + + + + + [...] | + + + + + | [facility] | [address] | [place] [address] | | | SERVICES, CORE | PARK [...] [facility] | [address] | [place] [address] | | | SERVICES, CORE | PARK [...] | | | LABORATORY | | | RWANDAN | | | SERVICES, | | | [...] | + + + + + | [facility] | [address] | [place] [address] | | | ELIN, CORE | VILMA [...] [facility] | [address] [facility] | [place], [place] | | | [facility] | [address] | [address] | | | TESTS | | | [...] LABORATORY | [address] | [place] [address] | | | NATALEE WORTHINGTON | VILMA [...] | + + + + + | [facility] | [address] [facility] [address] [address] | [place] [address] | | | NATALEE WORTHINGTON | VILMA [...] | | | LABORATORY | | | RWANDAN | | | SERVICES, | | | [...] + + + + + | [facility] | [address] [facility] [address] | [place] [address] | | | SERVICES, CORE | VILMA [...] Note | + + | Service Account, mytrax Res In Interface - 09/20/2017 7:50 PM [...] presented. Final signature: Mega Yeager | | Prabhakar CABRERA 09/20/2017 6:24 PM Preliminary: [...] Note | + + | Service Account, mytrax Res In Interface - 09/20/2017 6:26 PM [...] + | [facility] | [address] | [place], [place] | | | CARDIOLOGY | [address] | [address] | | + + + + + [...] | + + + + + | [facility] | [address] | [place] [address] | | | SERVICES, CORE | PARK [...] [facility] | [address] | [place] [address] | | | SERVICES, CORE [...] | | | LABORATORY | | | RWANDAN | | | SERVICES, | | | [...] the MDRD equation recommended by the | [facility] | | National Kidney [...] | + + + + + | [facility] | [address] | [place] [address] | | | SERVICES, CORE | PARK [...] [facility] | [address] | [place] [address] | | | SERVICES, CORE | PARK [...] [facility] | [address] | [place] [address] | | | SERVICES, CORE | PARK [...] | | | LABORATORY | | | RWANDAN | | | SERVICES, | | | [...] the MDRD equation recommended by the | [facility] | | National Kidney [...] | + + + + + | [facility] | [address] | [place] [address] | | | NATALEE WORTHINGTON | VILMA [...] [facility] | [address] | [place] [address] | | | ELIN, NATALEE | PARK [...] [facility] | [address] | [place] [address] | | | SERVICES, CORE | PARK [...] | | | LABORATORY | | | RWANDAN | | | SERVICES, | | | [...] the MDRD equation recommended by the | [facility] | | National Kidney Disease Education Program. [...] | + + + + + | [facility] | [address] | [place] [address] | | | NATALEE WORTHINGTON | VILMA [...] Note | + + | Service Account, [employer] In Interface - 09/17/2017 11:53 AM PDT [...] [facility] | [address] | [place] [address] | | | NATALEE WORTHINGTON | VILMA [...] | + + + + + | [facility] | [address] | [place] [address] | | | SERVICES, CORE | VILMA [...] | | | LABORATORY | | | RWANDAN | | | SERVICES, | | | [...] | + + + + + | [facility] | [address] | [place] [address] | | | SERVICES, CORE | [address] | | | + + + + + X-RAY PORTABLE CHEST PICC LINE CHECK (09/16/2017 1:11 PM PDT) + + | Specimen | + + | | + + + + + | Narrative | Performed At | + + + | EXAM: FL CHEST PICC [...] At | + + + | EXAM: FL CHEST PICC [...] | + + + + + | [facility] | [address] | [place] [address] | | | ELIN, NATALEE | VILMA [...] + + + + + | [facility] | [address] | [place] [address] | | | SERVICES, CORE | VILMA [...] | | | LABORATORY | | | RWANDAN | | | SERVICES, | | | [...] | + + + + + | [facility] | [address] | [place] [address] | | | SERVICES, CORE | [address] | | | + + + + + X-RAY PORTABLE CHEST 1 VIEW (09/15/2017 3:28 PM PDT) + + | Specimen | + + | | + + + + + | Narrative | Performed At | + + + | EXAM: FL CHEST 1 VIEW HISTORY: COMPARISON: None. | [...] Service Account, Radis[employer] In Interface - 09/15/2017 6:45 PM [...] At | + + + | EXAM: FL CHEST PICC [...] Note Indications:TPN Procedure | | | location: Unit:[facility] Room: #12 Providers: Attending name: | [...] | pause verifies correct patient, procedure, equipment, operations support analyst | | | and site/side [...] | area Basilic vein. Catheter lot number: [id number] with a length of 55 | | [...] + + + + + | [facility] | [address] | [place] [address] | | | SERVICES, CORE | PARK [...] [facility] | [address] | [place] [address] | | | SERVICES, [facility] | [address] | | | + [...] | | | LABORATORY | | | RWANDAN | | | SERVICES, | | | [...] the MDRD equation recommended by the | [facility] | | National Kidney [...] | + + + + + | [facility] | [address] | [place] [address] | | | SERVICES, [facility] | [address] | | | + [...] LABORATORY | [address] | [place] [address] | | | NATALEE WORTHINGTON | VILMA [...] | + + + + + | [facility] | [address] | [place] [address] | | | SERVICES, NATALEE | VILMA [...] | | | LABORATORY | | | RWANDAN | | | SERVICES, | | | [...] + + + + + | [facility] | [address] | [place] [address] | | | SERVICES, CORE | PARK [...] LABORATORY | [address] | [place] [address] | | | NATALEE WORTHINGTON | VILMA [...] | + + + + + | [facility] | [address] | [place] [address] | | | NATALEE WORTHINGTON | VILMA [...] | | | LABORATORY | | | RWANDAN | | | SERVICES, | | | [...] + + + + + | [facility] | [address] | [place] [address] | | | SERVICES, CORE | VILMA [...] Note | + + | Service Account, mytrax Res In Interface - 09/12/2017 9:13 AM [...] | + + + + + | [facility] | [address] | [place] [address] | | | SERVICES, CORE | [address] | | | + + + + + MAGNESIUM, PLASMA (09/12/2017 6:33 AM PDT) + +-------+ + + + | Component | Value | Ref Range | Performed | Pathologist | | | | | At | Signature | + +-------+ + + + | MAGNESIUM,P | 2.3 | 1.6 - 2.6 mg/dL | CADANIELLE | | | LASMA | | | [...] [facility] | [address] | [place] [address] | | | SERVICES, CORE | PARK [...] | | | LABORATORY | | | RWANDAN | | | SERVICES, | | | [...] | + + + + + | [facility] | [address] | [place] [address] | | | SERVICES, CORE | VILMA [...] LABORATORY | [address] | [place] [address] | | | NATALEE WORTHINGTON | VILMA [...] | + + + + + | [facility] | [address] | [place] [address] | | | SERVICES, NATALEE | PARK [...] | | | LABORATORY | | | RWANDAN | | | SERVICES, | | | [...] | + + + + + | [facility] | [address] | [place] [address] | | | SERVICES, CORE | VILMA [...] | + + + + + | [facility] | [address] | [place] [address] | | | SERVICES, CORE | VILMA [...] Note | + + | Service Account, mytrax Res In Interface - 09/10/2017 2:08 PM [...] Note | + + | Service Account, [employer] In Interface - 09/10/2017 2:31 PM PDT [...] At | + + + | STUDY: FL CHEST 1 [...] Note | + + | Service Account, [employer] In Interface - 09/10/2017 9:25 AM PDT [...] [facility] | [address] | [place] [address] | | | SERVICES, CORE | PARK [...] [facility] | [address] | [place] [address] | | | SERVICES, CORE | PARK [...] + + + + + | [facility] | [address] | [place] [address] | | | SERVICES, CORE | VILMA [...] [facility] | [address] | [place] [address] | | | SERVICES, CORE | PARK [...] | | | LABORATORY | | | RWANDAN | | | SERVICES, | | | [...] | + + + + + | [facility] | [address] | [place] [address] | | | ELIN, NATALEE | VILMA [...] + + | [facility] | [address] | [place], [place] | | | CARDIOLOGY | [address] | [address] | | + + + + + [...] Note | + + | Service Account, mytrax Res In Interface - 09/10/2017 11:11 AM [...] | | [facility] | [address] | [address] | | | TESTS | | | [...] | + + + + + | [facility] | [address] | [place] [address] | | | SERVICES, NATALEE | PARK [...] [facility] | [address] | [place] [address] | | | SERVICES, CORE | PARK [...] | | | LABORATORY | | | RWANDAN | | | SERVICES, | | | [...] the MDRD equation recommended by the | [facility] | | National Kidney Disease Education Program. [...] | + + + + + | [facility] | [address] | [place] [address] | | | NATALEE WORTHINGTON | VILMA [...] [facility] | [address] | [place] [address] | | | SERVICES, CORE | PARK [...] | | | LABORATORY | | | RWANDAN | | | SERVICES, | | | [...] [facility] | [address] | [place] [address] | | | SERVICES, CORE | PARK [...] | + + + + + | [facility] | [address] | [place] [address] | | | SERVICES, CORE | PARK [...] LABORATORY | [address] | [place] [address] | | | SERVICES, CORE | VILMA [...] Note | + + | Service Account, mytrax Res In Interface - 09/08/2017 10:56 AM [...] [place], [place] | | | CARDIOLOGY | [address] | [address] | | + + + + + X-RAY PORTABLE CHEST 1 VIEW (09/07/2017 6:12 AM PDT) + + | Specimen | + + | | + + + + + | Narrative | Performed At | + + + | EXAM: FL CHEST 1 [...] | + + + + + | [facility] | [address] | [place] [address] | | | NATALEE WORTHINGTON | VILMA [...] | | | LABORATORY | | | RWANDAN | | | SERVICES, | | | [...] + + + + + | [facility] | [address] | [place] [address] | | | SERVICES, CORE | VILMA [...] | + + + + + | [facility] | [address] | [place] [address] | | | SERVICES, CORE | VILMA [...] [place], [place] | | | CARDIOLOGY | [address] | [address] | | + + + + + [...] | | | attempt. Midline lot number [id number]; there was positive blood | | | [...] | | | LABORATORY | | | RWANDAN | | | SERVICES, | | | [...] | + + + + + | [facility] | [address] | [place] [address] | | | SERVICES, CORE | PARK [...] + + + + + | [facility] | [address] | [place] [address] | | | [facility], [facility] | [address] | | | + + + + + X-RAY PORTABLE CHEST 1 VIEW (09/05/2017 5:33 AM PDT) + + | Specimen | + + | | + + + + + | Narrative | Performed At | + + + | EXAM: FL CHEST 1 VIEW HISTORY: Evaluation after chest tube | [facility] | | removal. COMPARISON: Yesterday FINDINGS: Endotracheal [...] + + + + + | [facility] | [address] | [place] [address] | | | SERVICES, CORE | VILMA [...] + + + + + | [facility] | [address] | [place] [address] | | | SERVICES, CORE | VILMA [...] | | | LABORATORY | | | RWANDAN | | | SERVICES, | | | [...] [facility] | [address] | [place] [address] | | | SERVICES, CORE | PARK [...] | | | LABORATORY | | | RWANDAN | | | SERVICES, | | | [...] + + + + + | [facility] | [address] | [place] [address] | | | SERVICES, [facility] | [address] | | | + [...] tomorrow morning. CB Henson Pager / ID: [phone] | | + + + CULTURE, SPUTUM [...] seen | AIR[facility] - | | | [place] | + + + + + + + + | Performing | Address | City/State/Zipcode | Phone Number | | Organization | | | | + + + + + | [facility] | [address] | [place] [address] | | | [place] | | | [...] | + + + + + | [facility] | [address] | [place] [address] | | | SERVICES, CORE | VILMA [...] | [facility] | | | GRAVITY | [place] performed by | | LABORATORY | | [...] [facility] | [address] | [place] [address] | | | SERVICES, CORE | VILMA [...] | + + + + + | [facility] | [address] | [place] [address] | | | SERVICES, CORE | PARK [...] | + + + + + | [facility] | [address] | [place] [address] | | | SERVICES, CORE | VILMA [...] [facility] | [address] | [place], [place] | | | CARDIOLOGY | [address] | [address] | | + + + + + X-RAY PORTABLE CHEST 1 VIEW (09/04/2017 7:04 AM PDT) + + | Specimen | + + | | + + + + + | Narrative | Performed At | + + + | EXAM: FL CHEST 1 VIEW HISTORY: Hypoxia. Intubated. | [...] | + + + + + | [facility] | [address] | [place] [address] | | | SERVICES, CORE | VILMA [...] [facility] | [address] | [place] [address] | | | SERVICES, CORE | PARK [...] | | | LABORATORY | | | RWANDAN | | | SERVICES, | | | [...] the MDRD equation recommended by the | [facility] | | National Kidney [...] | + + + + + | [facility] | [address] | [place] [address] | | | SERVICES, CORE | [address] | | | + + + + + MAGNESIUM, PLASMA (09/04/2017 12:29 AM PDT) + +-------+ + + + | Component | Value | Ref Range | Performed | Pathologist | | | | | At | Signature | + +-------+ + + + | MAGNESIUM,P | 1.9 | 1.6 - 2.6 mg/dL | [facility] | | | LASMA | | | [...] [facility] | [address] | [place] [address] | | | SERVICES, NATALEE | VILMA [...] - [facility] | [address] | [place], [place] | | | [facility] CARE | [address] | [address] | | | TESTS | | | [...] | [address] | [place], [place] | | | [facility] | [address] | [address] | | | TESTS | | | [...] | | GLORIA GENA[facility] | [address] | [address] | | | TESTS | | | [...] - [facility] | [address] | [place], [place] | | | [facility] | [address] | [address] | | | TESTS | | | [...] Note | + + | Service Account, mytrax Res In Interface - 09/03/2017 10:27 AM [...] | | + +---------+ + + | [facility] | | | | | [facility] | | | | + [...] detected | AIR[facility] - | | | [place] | + + + + + + + + | Performing | Address | City/State/Zipcode | Phone Number | | Organization | | | | + + + + + | [facility] | [address] | [place] [address] | | | [place] | | | [...] [facility] | [address] | [place] [address] | | | SERVICES, CORE | VILMA [...] Note | + + | Service Account, [employer] In Interface - 09/03/2017 9:54 AM PDT [...] + | [facility] | [address] | [place] [address] | | | [place] | | | | + + + [...] LABORATORY | [address] | [place] [address] | | | SERVICES, CORE | PARK [...] + + + + + | [facility] | [address] | [place] [address] | | | SERVICES, CORE | VILMA [...] | | | LABORATORY | | | RWANDAN | | | SERVICES, | | | [...] [facility] | [address] | [place] [address] | | | SERVICES, CORE | PARK [...] + + + + + | [facility] | [address] | [place] [address] | | | SERVICES, [facility] | [address] | | | + + + + + OPERATION RECORD (09/02/2017 6:53 PM PDT) + + | Procedure Note | + + | Fidelina Shields MD - 09/02/2017 6:53 PM PDT Date of Service: 09/02/2017 | | Attending Surgeon: Fidelina Shields MD Private Investigator Surveillance(s): | | Ajay Butts MD, resident. Preoperative [...] 09/02/2017 18:15:29DT: 09/02/2017 18:53:52Job #: | | [id number] to federal Medicare and Medicaid regulations I was present for | | the entire procedure.Fidelina Shields MDAssistant ProfessorDepartment of SurgeryOffice: | | [phone]: [id number] has been electronically signed by Fidelina Shields MD, | | 09/03/2017 at 9:11 AM. | | | | | |Fidelina Shields MD | |Magazine Grinder Loader | |Department of Surgery | |Office: [phone] | |Pager: [phone] | | | |This has been electronically [...] | + + + + + | [facility] | [address] | [place] [address] | | | SERVICES, CORE | PARK [...] + + + + + | [facility] | [address] | [place] [address] | | | SERVICES, CORE | VILMA [...] + | [facility] | [address] | [place] [address] | | | [facility] LABORATORY | [address] | [place] [address] | | | SERVICES, NATALEE | VILMA [...] | | | LABORATORY | | | RWANDAN | | | SERVICES, | | | [...] | + + + + + | [facility] | [address] | [place] [address] | | | SERVICES, CORE | VILMA [...] Note | + + | Service Account, [employer] In Interface - 09/02/2017 4:25 PM PDT [...] Bedrest Initial surgical | | | contact: JORGECU Vicente Butts, R4 Surgery [id number] Pursuant | | | to federal Medicare and Medicaid regulations I was present for the | | | entire procedure. Fidelina Shields MD Magazine Grinder Loader | | | Department of Surgery Office: [phone] Pager: [phone] This has | | | been electronically [...] [facility] | [address] | [place] [address] | | | SERVICES, CORE | PARK [...] + + + + + | [facility] | [address] | [place] [address] | | | SERVICES, [facility] | [address] | | | + + + + + OPERATION RECORD (09/02/2017 6:51 AM PDT) + ---+ | Procedure Note | + ---+ | Fidelina Shields MD - 09/02/2017 6:51 AM PDT Date of Service: 09/01/2017 | | Attending Surgeon: Fidelina Shields MD Private Investigator Surveillance(s): Haim Peralta MD. | | Ajay Butts [...] 09/02/2017 06:17:53DT: 09/02/2017 | | 06:51:37Job #: [id number] to federal Medicare and Medicaid regulations I | | was present for the entire procedure.Fidelina Sihelds MDAssistant ProfessorDepartment of | | SurgeryOffice: [phone]: [id number] has been electronically signed by Fidelina Shields MD, 09/02/2017 at 10:40 AM. | | | | | |Pursuant to federal Medicare and Medicaid regulations I was present for the entire procedur e. | | | | | | | |Fidelina Shields MD | |Magazine Grinder Loader | |Department of Surgery | |Office: [phone] | |Pager: [phone] | | | |This has been electronically [...] + + + + + | [facility] | [address] | [place] [address] | | | SERVICES, CORE | VILMA [...] (L) | 41.0 - 53.0 % | [facility] | | | | | | LABORATORY [...] | + + + + + | [facility] | [address] | [place] [address] | | | SERVICES, CORE | PARK [...] + + + + | PRODUCT | [id number] | | [facility] | | | UNIT [...] + + + + | EXPIRATION | [id number] | | [facility] | | | DATE [...] + + + + | BLOOD | [id number] | | [facility] | | | PRODUCT [...] LABORATORY | [address] | [place] [address] | | | SERVICES, | [address] [...] + + + + + | [facility] | [address] | [place] [address] | | | SERVICES, NATALEE | VILMA [...] | | | LABORATORY | | | RWANDAN | | | SERVICES, | | | [...] + + | [facility] | [address] | [place] [address] | | | SERVICES, CORE | VILMA [...] + + + + + | [facility] | [address] | [place] [address] | | | SERVICES, NATALEE | [address] [...] | | | | INFORMATION: | | [place] | | | | [employer] | [...] (http://www.cdc.gov/mmwr | | | | | | /preview/mmwrhtml/sl7139 | | | | | | [email or web address].htm), [...] [facility] - | | | | by [employer], | | AIRPORT - | | | | | | [place] | | | | [address] | | | | | | [address], [employer] [facility] [employer] | | | | | | [phone] | | | | | | | | | | | | [email or web address] | | | | | | [...] + | [facility] | [address] | [place] [address] | | | [place] | | | [...] + + + + + | [facility] | [address] | [place] [address] | | | SERVICES, CORE | PARK [...] + + + + + | [facility] | [address] | [place] [address] | | | SERVICES, CORE | [address]IL[address] [...] | | + +---------+ + + | [facility] | | | | | VOICE RECOGNITION | | | | + +---------+ + + X-RAY PORTABLE CHEST 1 VIEW (09/01/2017 6:14 PM PDT) + + | Specimen | + + | | + + + + + | Narrative | Performed At | + + + | EXAM: FL CHEST 1 [...] | | + +---------+ + + | [facility] | | | [...] | + + + + + | [facility] | [address] | [place] [address] | | | SERVICES, CORE | PARK [...] + + + + + | [facility] | [address] | [place] [address] | | | SERVICES, CORE | PARK [...] + + + + | PRODUCT | [id number] | | [facility] | | | UNIT [...] + + + + | EXPIRATION | [id number] | | [facility] | | | DATE [...] + + + + | BLOOD | [id number] | | [facility] | | | PRODUCT [...] + + + + + | [facility] | [address] | [place] [address] | | | SERVICES, | [address] [...] [facility] | [address] | [place] [address] | | | SERVICES, CORE | PARK [...] [facility] | [address] | [place] [address] | | | NATALEE WORTHINGTON | VILMA [...] + + + + + | [facility] | [address] | [place] [address] | | | SERVICES, CORE | [address] [...] | | | LABORATORY | | | RWANDAN | | | SERVICES, | | | [...] + + + + + | [facility] | [address] | [place] [address] | | | NATALEE WORTHINGTON | VILMA [...] | + + + + + | [facility] | [address] | [place] [address] | | | ELIN, NATALEE | VILMA [...] received. Sample rejected due to air | [facility] | | contamination. Crediting patient. | LABORATORY | | | NATALEE [address]TH[address] | + + + + + + + + | Performing | Address | City/State/Zipcode | Phone Number | | Organization | | | | + + + + + | [facility] | [address] | [place] [address] | | | NATALEE WORTHINGTON | [address] [...] micropuncture access set was exchanged for a Open[employer] wire. Under | | | fluoroscopic guidance, a 5 Fr flush catheter was used to evaluate the | | | distal abdominal aorta and pelvic vasculature. A wire and catheter | | | were then used to select the left common and internal iliac arteries | | | from the right RIFFLER TENDER approach. DSA was performed from the left [...] | | iliac arteries from the right RIFFLER TENDER approach. DSA was performed from the left [...] and internal iliac arteries from the right RIFFLER TENDER approach. DSA was performed from the left [...] | | [facility] - | | | [facility] | | | RAPHAELAM | | [...] MAR[place] | [address] | [place], [place] | | | [facility] GENAO [facility] | [address] | [address] | | | TESTS | | | | + + + + + EXPLORATORY LAPAROTOMY (09/01/2017 12:31 PM PDT) + + + | Narrative | Performed At | + + + | Fidelina Shields MD 09/01/2017 12:42 PM BRIEF OPERATIVE NOTE: | | | Date: 09/01/2017 Author: Fidelina Shields MD | | | Attending Physician: Fidelina Shields MD Private Investigator Surveillance(s): Haim Peralta | | | , Vicente Butts MD, [facility] MS3 Prior to the | [...] case. | | | Fidelina Shields MD Magazine Grinder Loader Division of Trauma, | | | Critical Care and Acute Care Surgery Office: [phone] Pager: | | | [phone] | | + + + ABG-FULL ABL, [...] | [address] | [place], [place] | | | [facility] | [address] | [address] | | | TESTS | | | [...] LABORATORY | [address] | [place] [address] | | | ELIN, NATALEE | VILMA [...] Jorge PICKETT | [address] | [place], [place] | | | [facility] | [facility] | [address] | | | TESTS | | | [...] + + + + | PRODUCT | [id number] | | [facility] | | | UNIT [...] + + + + | EXPIRATION | [id number] | | [facility] | | | DATE [...] + + + + | BLOOD | [id number] | | [facility] | | | PRODUCT [...] [facility] | [address] | [place] [address] | | | SERVICES, | [address] [...] + + + + | PRODUCT | [id number] | | [facility] | | | UNIT [...] + + + + | EXPIRATION | [id number] | | [facility] | | | DATE [...] + + + + | BLOOD | [id number] | | [facility] | | | PRODUCT [...] [facility] | [address] | [place] [address] | | | SERVICES, | [address] [...] + + + + | PRODUCT | [id number] | | [facility] | | | UNIT [...] + + + + | EXPIRATION | [id number] | | [facility] | | | DATE [...] + + + + | BLOOD | [id number] | | [facility] | | | PRODUCT [...] + + + + + | [facility] | [address] | [place] [address] | | | SERVICES, | [address] [...] + + + + | PRODUCT | [id number] | | [facility] | | | UNIT [...] + + + + | EXPIRATION | [id number] | | [facility] | | | DATE [...] + + + + | BLOOD | [id number] | | [facility] | | | PRODUCT [...] + + + + + | [facility] | [address] | [place] [address] | | | SERVICES, | [address] [...] + + + + | PRODUCT | [id number] | | [facility] | | | UNIT [...] + + + + | EXPIRATION | [id number] | | [facility] | | | DATE [...] + + + + | BLOOD | [id number] | | [facility] | | | PRODUCT [...] + + + + + | [facility] | [address] | [place] [address] | | | SERVICES, | [address] [...] + + + + | PRODUCT | [id number] | | [facility] | | | UNIT [...] + + + + | EXPIRATION | [id number] | | [facility] | | | DATE [...] + + + + | BLOOD | [id number] | | [facility] | | | PRODUCT [...] [facility] | [address] | [place] [address] | | | SERVICES, | [address] [...] + + + + | PRODUCT | [id number] | | [facility] | | | UNIT [...] + + + + | EXPIRATION | [id number] | | [facility] | | | DATE [...] + + + + | BLOOD | [id number] | | [facility] | | | PRODUCT [...] [facility] | [address] | [place] [address] | | | SERVICES, | [address] [...] + + + + | PRODUCT | [id number] | | [facility] | | | UNIT [...] + + + + | EXPIRATION | [id number] | | [facility] | | | DATE [...] + + + + | BLOOD | [id number] | | [facility] | | | PRODUCT [...] [facility] | [address] | [place] [address] | | | SERVICES, | [address] [...] + + + + | PRODUCT | [id number] | | [facility] | | | UNIT [...] + + + + | EXPIRATION | [id number] | | [facility] | | | DATE [...] + + + + | BLOOD | [id number] | | [facility] | | | PRODUCT [...] [facility] | [address] | [place] [address] | | | SERVICES, | [address] [...] + + + + | PRODUCT | [id number] | | [facility] | | | UNIT [...] + + + + | EXPIRATION | [id number] | | [facility] | | | DATE [...] + + + + | BLOOD | [id number] | | [facility] | | | PRODUCT [...] [facility] | [address] | [place] [address] | | | SERVICES, | [address] [...] + + + + | PRODUCT | [id number] | | [facility] | | | UNIT [...] + + + + | EXPIRATION | [id number] | | [facility] | | | DATE [...] + + + + | BLOOD | [id number] | | [facility] | | | PRODUCT [...] + + + + + | [facility] | [address] | [place] [address] | | | SERVICES, | [address] [...] + + + + | PRODUCT | [id number] | | [facility] | | | UNIT [...] + + + + | EXPIRATION | [id number] | | [facility] | | | DATE [...] + + + + | BLOOD | [id number] | | [facility] | | | PRODUCT [...] + + + + + | [facility] | [address] | [place] [address] | | | SERVICES, | [address] [...] + + + + | PRODUCT | [id number] | | [facility] | | | UNIT [...] + + + + | EXPIRATION | [id number] | | [facility] | | | DATE [...] + + + + | BLOOD | [id number] | | [facility] | | | PRODUCT [...] + + + + + | [facility] | [address] | [place] [address] | | | SERVICES, | [address] [...] + + + + | PRODUCT | [id number] | | [facility] | | | UNIT [...] + + + + | EXPIRATION | [id number] | | [facility] | | | DATE [...] + + + + | BLOOD | [id number] | | [facility] | | | PRODUCT [...] + + + + + | [facility] | [address] | [place] [address] | | | SERVICES, | [address] [...] + + + + | PRODUCT | [id number] | | [facility] | | | UNIT [...] + + + + | EXPIRATION | [id number] | | [facility] | | | DATE [...] + + + + | BLOOD | [id number] | | [facility] | | | PRODUCT [...] [facility] | [address] | [place] [address] | | | SERVICES, | [address] [...] + + + + | PRODUCT | [id number] | | [facility] | | | UNIT [...] + + + + | EXPIRATION | [id number] | | [facility] | | | DATE [...] + + + + | BLOOD | [id number] | | [facility] | | | PRODUCT [...] [facility] | [address] | [place] [address] | | | SERVICES, | [address] [...] + + + + | PRODUCT | [id number] | | [facility] | | | UNIT [...] + + + + | EXPIRATION | [id number] | | [facility] | | | DATE [...] + + + + | BLOOD | [id number] | | [facility] | | | PRODUCT [...] [facility] | [address] | [place] [address] | | | SERVICES, | [address] [...] + + + + | PRODUCT | [id number] | | [facility] | | | UNIT [...] + + + + | EXPIRATION | [id number] | | [facility] | | | DATE [...] + + + + | BLOOD | [id number] | | [facility] | | | PRODUCT [...] [facility] | [address] | [place] [address] | | | SERVICES, | [address] [...] + + + + | PRODUCT | [id number] | | [facility] | | | UNIT [...] + + + + | EXPIRATION | [id number] | | [facility] | | | DATE [...] + + + + | BLOOD | [id number] | | [facility] | | | PRODUCT [...] [facility] | [address] | [place] [address] | | | SERVICES, | [address] [...] + + + + | PRODUCT | [id number] | | [facility] | | | UNIT [...] + + + + | EXPIRATION | [id number] | | [facility] | | | DATE [...] + + + + | BLOOD | [id number] | | [facility] | | | PRODUCT [...] [facility] | [address] | [place] [address] | | | SERVICES, | [address] [...] + + + + | PRODUCT | [id number] | | [facility] | | | UNIT [...] + + + + | EXPIRATION | [id number] | | [facility] | | | DATE [...] + + + + | BLOOD | [id number] | | [facility] | | | PRODUCT [...] [facility] | [address] | [place] [address] | | | SERVICES, | [address] [...] + + + + | PRODUCT | [id number] | | [facility] | | | UNIT [...] + + + + | EXPIRATION | [id number] | | [facility] | | | DATE [...] + + + + | BLOOD | [id number] | | [facility] | | | PRODUCT [...] + + + + + | [facility] | [address] | [place] [address] | | | SERVICES, | [address] [...] + + + + | PRODUCT | [id number] | | [facility] | | | UNIT [...] + + + + | EXPIRATION | [id number] | | [facility] | | | DATE [...] + + + + | BLOOD | [id number] | | [facility] | | | PRODUCT [...] + + + + + | [facility] | [address] | [place] [address] | | | SERVICES, | [address] [...] + + + + | PRODUCT | [id number] | | [facility] | | | UNIT [...] + + + + | EXPIRATION | [id number] | | [facility] | | | DATE [...] + + + + | BLOOD | [id number] | | [facility] | | | PRODUCT [...] + + + + + | [facility] | [address] | [place] [address] | | | SERVICES, | [address] [...] + + + + | PRODUCT | [id number] | | [facility] | | | UNIT [...] + + + + | EXPIRATION | [id number] | | [facility] | | | DATE [...] + + + + | BLOOD | [id number] | | [facility] | | | PRODUCT [...] [facility] | [address] | [place] [address] | | | SERVICES, | [address] [...] + + + + | PRODUCT | [id number] | | [facility] | | | UNIT [...] + + + + | EXPIRATION | [id number] | | [facility] | | | DATE [...] + + + + | BLOOD | [id number] | | [facility] | | | PRODUCT [...] | [address] | [place] [address] | | | SERVICES, | [address] [...] + + + + + | [facility] | [address] | [place] [address] | | | SERVICES, NATALEE | [address] [...] | | | LABORATORY | | | RWANDAN | | | SERVICES, | | | [...] + + | [facility] | [address] | [place] [address] | | | SERVICES, CORE | [address] [...] | + + + + + | [facility] | [address] | [place] [address] | | | SERVICES, CORE [...] CHAMBERS | [place], [place] | | | [facility] | [address] | [address] | | | TESTS | | | | + + + + + X-RAY PORTABLE CHEST 1 VIEW (09/01/2017 9:18 AM PDT) + + | Specimen | + + | | + + + + + | Narrative | Performed At | + + + | EXAM: FL CHEST 1 [...] Note | + + | Service Account, [employer] In Interface - 09/01/2017 1:40 PM PDT [...] + + + + | PRODUCT | [id number] | | [facility] | | | UNIT [...] + + + + | EXPIRATION | [id number] | | [facility] | | | DATE [...] + + + + | BLOOD | [id number] | | [facility] | | | PRODUCT [...] + + + + + | [facility] | [address] | [place] [address] | | | SERVICES, | [address] [...] + + + + | PRODUCT | [id number] | | [facility] | | | UNIT [...] + + + + | EXPIRATION | [id number] | | [facility] | | | DATE [...] + + + + | BLOOD | [id number] | | [facility] | | | PRODUCT [...] | + + + + + | [facility] | [address] | [place] [address] | | | SERVICES, | [address] [...] + + + + | PRODUCT | [id number] | | [facility] | | | UNIT [...] + + + + | EXPIRATION | [id number] | | [facility] | | | DATE [...] + + + + | BLOOD | [id number] | | [facility] | | | PRODUCT [...] LABORATORY | [address] | [place] [address] | | | SERVICES, | [address] [...] + + + + | PRODUCT | [id number] | | [facility] | | | UNIT [...] + + + + | EXPIRATION | [id number] | | [facility] | | | DATE [...] + + + + | BLOOD | [id number] | | [facility] | | | PRODUCT [...] [facility] | [address] | [place] [address] | | | SERVICES, | [address] [...] + + + + | PRODUCT | [id number] | | [facility] | | | UNIT [...] + + + + | EXPIRATION | [id number] | | [facility] | | | DATE [...] + + + + | BLOOD | [id number] | | [facility] | | | PRODUCT [...] [facility] | [address] | [place] [address] | | | SERVICES, | [address] [...] + + + + | PRODUCT | [id number] | | [facility] | | | UNIT [...] + + + + | EXPIRATION | [id number] | | [facility] | | | DATE [...] + + + + | BLOOD | [id number] | | [facility] | | | PRODUCT [...] [facility] | [address] | [place] [address] | | | SERVICES, | [address] [...] + + + + | PRODUCT | [id number] | | [facility] | | | UNIT [...] + + + + | EXPIRATION | [id number] | | [facility] | | | DATE [...] + + + + | BLOOD | [id number] | | [facility] | | | PRODUCT [...] [facility] | [address] | [place] [address] | | | SERVICES, | [address] [...] + + + + | PRODUCT | [id number] | | [facility] | | | UNIT [...] + + + + | EXPIRATION | [id number] | | [facility] | | | DATE [...] + + + + | BLOOD | [id number] | | [facility] | | | PRODUCT [...] | + + + + + | [facility] | [address] | [place] [address] | | | SERVICES, | [address] [...] + + + + | PRODUCT | [id number] | | [facility] | | | UNIT [...] + + + + | EXPIRATION | [id number] | | [facility] | | | DATE [...] + + + + | BLOOD | [id number] | | [facility] | | | PRODUCT [...] + + + + + | [facility] | [address] | [place] [address] | | | SERVICES, | [address] [...] + + + + + | [facility] | [address] | [place] [address] | | | SERVICES, CORE | [address] [...] [facility] | [address] | [place] [address] | | | SERVICES, CORE | [address] [...] Discussed with | | | trauma ICU customer marketing intern by Dr. Yang at 4:38 [...] interspinous ligament is injured.Discussed with trauma ICU customer marketing intern | | by Dr. Yang at 4:38 AM.I have personally reviewed the images and, if necessary, | | edited the report. I agree with the report as now presented. | |3. Extensive soft tissue edema extending into the cervical and upper thoracic interspinous space, suggestive of interspinous ligament is injured. | | | |Discussed with trauma ICU customer marketing intern by Dr. Yang at 4:38 [...] | | | LABORATORY | | | [facility]AN | | | SERVICES, | | | [...] | + + + + + | [facility] | [address] | [place] [address] | | | SERVICES, CORE | [address] | | | + + + + + MAGNESIUM, PLASMA (09/01/2017 1:33 AM PDT) + +---------+ + + + | Component | Value | Ref Range | Performed | Pathologist | | | | | At | Signature | + +---------+ + + + | MAGNESIUM,P | 1.4 (L) | 1.6 - 2.6 mg/dL | [facility] | | | LASMA | | | [...] [facility] | [address] | [place] [address] | | | SERVICES, CORE | [address] [...] [facility] | [address] | [place] [address] | | | SERVICES, CORE [...] + + + + + | [facility] | [address] | [place] [address] | | | [facility] | [address] | | | + [...] pleural spaced was performed. A 32 size Chinese chest tube was | | | placed [...] | ventricles. Discussed with the trauma ICU customer marketing intern at 12:12 AM by | | [...] ventricles.Discussed with | | the trauma ICU customer marketing intern at 12:[address] [...] | | |Discussed with the trauma ICU customer marketing intern at 12:[address] [...] | | [facility] | [address] | [address] | | | TESTS | | | [...] [facility] | [address] | [place] [address] | | | SERVICES, CORE | [address] [...] LABORATORY | [address] | [place] [address] | | | NATALEE [place] | [address] [...] | | + +---------+ + + | [facility] | | | [...] | + + + + + | [facility] | [address] | [place] [address] | | | SERVICES, [facility] | [address] | | | + + + + + X-RAY PORTABLE CHEST 1 VIEW (08/31/2017 7:07 PM PDT) + + | Specimen | + + | | + + + + + | Narrative | Performed At | + + + | STUDY: FL CHEST 1 VIEW HISTORY: Trauma COMPARISON: CT CAP | [facility] | | 08/31/2017 FINDINGS: Endotracheal tube [...] | | + +---------+ + + | [facility] | | | [...] + + + + + | [facility] | [address] | [place] [address] | | | SERVICES, CORE | [address] [...] Note | + + | Service Account, [employer] In Interface - 09/01/2017 10:12 AM [...] rib, nondisplaced-Left | | 1st rib fracture, tagaslqshynm-Xze-eqxcejchm left lateral 8th rib fracture-T12 fracture | [...] Note | + + | Service Account, [employer] In Interface - 08/31/2017 8:10 PM [...] | + + + + + | [facility] | [address] | [place] [address] | | | ELIN, | [address] [...] LABORATORY | [address] | [place] [address] | | | SERVICES, | [address] [...] | + + + + + | [facility] | [address] | [place] [address] | | | SERVICES, | [address] [...] | [address] | [place], [place] | | | [facility] | [address] | [address] | | | TESTS | | | [...] + + | Performing | Address | [facility] | Phone Number | | Organization | | | | + + + + + | [facility] | [address] | [place], [place] | | | [facility] | [address] | [address] | | | TESTS | | | [...] | | [facility] | [address] | [address] | | | TESTS | | | [...] | [address] | [place], [place] | | | [facility] | [facility] | [address] | | | TESTS | | | [...] + + + + | PRODUCT | [id number] | | [facility] | | | UNIT [...] + + + + | EXPIRATION | [id number] | | [facility] | | | DATE [...] + + + + | BLOOD | [id number] | | [facility] | | | PRODUCT [...] [facility] | [address] | [place] [address] | | | SERVICES, | [address] [...] + + + + | PRODUCT | [id number] | | [facility] | | | UNIT [...] + + + + | EXPIRATION | [id number] | | [facility] | | | DATE [...] + + + + | BLOOD | [id number] | | [facility] | | | PRODUCT [...] [facility] | [address] | [place] [address] | | | SERVICES, | [address] [...] + + + + | PRODUCT | [id number] | | [facility] | | | UNIT [...] + + + + | EXPIRATION | [id number] | | [facility] | | | DATE [...] + + + + | BLOOD | [id number] | | [facility] | | | PRODUCT [...] + + + + + | [facility] | [address] | [place] [address] | | | SERVICES, | [address] [...] + + + + | PRODUCT | [id number] | | [facility] | | | UNIT [...] + + + + | EXPIRATION | [id number] | | [facility] | | | DATE [...] + + + + | BLOOD | [id number] | | [facility] | | | PRODUCT [...] + + + + + | [facility] | [address] | [place] [address] | | | SERVICES, | [address] [...] + + + + | PRODUCT | [id number] | | [facility] | | | UNIT [...] + + + + | EXPIRATION | [id number] | | [facility] | | | DATE [...] + + + + | BLOOD | [id number] | | [facility] | | | PRODUCT [...] | + + + + + | [facility] | [address] | [place] [address] | | | SERVICES, | [address] [...] + + + + | PRODUCT | [id number] | | [facility] | | | UNIT [...] + + + + | EXPIRATION | [id number] | | [facility] | | | DATE [...] + + + + | BLOOD | [id number] | | [facility] | | | PRODUCT [...] + + + + + | [facility] | [address] | [place] [address] | | | SERVICES, | [address] [...] + + + + | PRODUCT | [id number] | | [facility] | | | UNIT [...] + + + + | EXPIRATION | [id number] | | [facility] | | | DATE [...] + + + + | BLOOD | [id number] | | [facility] | | | PRODUCT [...] + + + + + | [facility] | [address] | [place] [address] | | | SERVICES, | [address] [...] + + + + | PRODUCT | [id number] | | [facility] | | | UNIT [...] + + + + | EXPIRATION | [id number] | | [facility] | | | DATE [...] + + + + | BLOOD | [id number] | | [facility] | | | PRODUCT [...] [facility] | [address] | [place] [address] | | | SERVICES, | [address] [...] + + + + + | [facility] | [address] | [place] [address] | | | SERVICES, CORE | [address] [...] | | | LABORATORY | | | RWANDAN | | | SERVICES, | | | [...] | + + + + + | [facility] | [address] | [place] [address] | | | SERVICES, CORE | [address] [...] | + + + + + | [facility] | [address] | [place] [address] | | | SERVICES, CORE | [address] [...] LABORATORY | [address] | [place] [address] | | | SERVICES, CORE | PARK [...] | + + + + + | [facility] | [address] | [place] [address] | | | SERVICES, CORE | [address] [...] [facility] | [address] | [place] [address] | | | SERVICES, CORE | [address] [...] +-------+ +--------+---+---+ +-------+ +--------+---+---+ | Given | 09/28/19 | 650 mg | | | | [...] | | | | last modification) on [facility] | | | | | | | [...] | | | | | modification) on [facility] 09/19/17 at | | | | [...] HOURS, First dose on Wed | | AM PDT | | [...] mL, intravenous, NEEDED, | | | Starting [facility] 09/26/17 at 0029, | | | Until Sat12/06/17 at 2051, CBG | | | less than 70 mg/dL if patient | | | unable to take PO, per Adult | | | Hypoglycemia Protocol | | + +---+ | | | + +---+ + +-------+ +-------+---+---+ | diatrizoate meglumine-sodium | Given | 12/04/19 | 50 mL | | | | (GASTROGRAFINMOIRAGASTROVIEW) | | 18 12:59 | | | [...] PM PDT | | | | | 10/16/17 [...] | | | | | 09/28/17 at 2099, Until Sun | | | [...] | | | | ONCE, 1 dose, [facility] 09/01/17 at 0230 | | AM PDT | | | | + +-------+ +---------+---+---+ + +---+ | | | + +---+ | fentaNYL (SUBLIMAZE) injection | | | 1 dose, Starting 08/31/17 at | | | 1656, Until [facility] 09/01/17 at 0456 | | + +---+ [...] | | | | | | Until [facility] 09/05/17 at 0727 | | | [...] BEDTIME, First dose on Sat | | PM [...] | haloperidol lactate (HALDOL) | Given | 06/18/20 | 5 mg | | | | [...] | | | | | NEEDED, Starting Tu09/24/17 at | | | | | | [...] | | | | | NEEDED, Starting [facility] 09/19/17 at | | | | [...] | HYDROmorphone (DILAUDID) tablet | Given | 05/10/20 | 4 mg | | | | [...] | | | | ONCE, 1 dose, [facility] 10/22/17 at 0215 | | AM PDT [...] (OMNIPAQUE) 350 mg | IV Push | 10/23/19 | 100 mL | | | | [...] | | | DAILY, First dose on [facility] 10/10/17 | | AM PDT | [...] 3:51 | | | | | dose, [facility] 10/10/17 at 1600 | | PM [...] | | TWICE DAILY, First dose on Tue | | AM PDT | | [...] | | TWICE DAILY, First dose on Fri | | PM [...] | | | | | 0158, Until Sat10/10/17 at 0225 | | AM PDT | [...] LORazepam (ATIVAN) tablet 0.5-3 | Given | 05/13/20 | 1 mg | | | | [...] 1 dose, 09/03/17 at 0600 | | AM PDT | | | | + +---------+ +-----+---+---+ +---+---+ | | | +---+---+ + +---------+ +-----+---+---+ | magnesium sulfate in water IV | New Bag | 09/05/19 | 2 g | | | | (RTU) 2 g 2 g, intravenous, | | 18 3:39 | | | | | ONCE, 1 dose, [facility] 09/04/17 at 0330 | | AM PDT | | | | + +---------+ +-----+---+---+ +---+---+ | | | +---+---+ + +---------+ +-----+---+---+ | magnesium sulfate in water IV | New | 09/06/19 | 2 g | | | | (RTU) 2 g 2 g, intravenous, | | 18 7:01 | | | | | ONCE, 1 dose, [facility] 09/05/17 at 0615 | | AM PDT | | | | + +---------+ +-----+---+---+ +---+---+ | | | +---+---+ + +---------+ +-----+ +---+ | magnesium sulfate in water IV | New Bag | 09/08/19 | 2 g | 25 mL/hr | | | (RTU) 2 g 2 g, intravenous, | | 18 2:33 | | | | | ONCE, 1 dose, [facility] 09/07/17 at 0230 | | AM PDT | | | | + +---------+ +-----+ +---+ +---+---+ | | | +---+---+ + +---------+ +-----+---+---+ | magnesium sulfate in water IV | New Bag | 09/23/19 | 2 g | | | | (RTU) 2 g 2 g, intravenous, | | 18 10:41 | | | | | ONCE, 1 dose, [facility] [facility] 09/22/17 at 1000 | | AM PDT | | | | + +---------+ +-----+---+---+ +---+---+ | | | +---+---+ + +---------+ +-----+ +---+ | magnesium sulfate in water IV | New Bag | 09/28/19 | 2 g | 25 mL/hr | | | (RTU) 2 g 2 g, intravenous, | | 18 10:32 | | | | | ONCE, 1 dose, Sat09/27/17 at 0815 | | AM PDT | | | | + +---------+ +-----+ +---+ +---+---+ | | | +---+---+ + +---------+ +-----+---+---+ | magnesium sulfate in water IV | New Bag | 10/12/19 | 2 g | | | | (RTU) 2 g 2 g, intravenous, | | 18 2:07 | | | | | ONCE, 1 dose, 10/11/17 at 0245 | | AM PDT | | | | + +---------+ +-----+---+---+ +---+---+ | | | +---+---+ + +---------+ +-----+---+---+ | magnesium sulfate in water IV | New Bag | 10/15/19 | 2 g | | | | (RTU) 2 g 2 g, intravenous, | | 18 10:50 | | | | | ONCE, 1 dose, [facility] 10/14/17 at 0815 | | AM PDT | | | | + +---------+ +-----+---+---+ +---+---+ | | | +---+---+ + +---------+ +-----+ +---+ | magnesium sulfate in water IV | | 09/02/19 | 4 g | 25 mL/hr | | | (RTU) 4 g 4 g, intravenous, | | 18 9:44 | | | | | ONCE, 1 dose, [facility] 09/01/17 at 0915 | | AM PDT | | | | + +---------+ +-----+ +---+ +---+---+ | | | +---+---+ + +---------+ +-----+---+---+ | magnesium sulfate in water IV | New | 09/03/19 | 4 g | | [...] 9:43 | | | | | on Sat09/19/17 at 0000, Until | | PM PDT [...] AM PDT | | | | | 5/6/18 at 0245 | | | | | [...] | | | doses, First dose on Sat09/07/17 | | AM PDT | | | [...] | | | 09/01/17 at 1103, Until [facility] 09/01/17 | | | | | | [...] | | EVERY EVENING, First dose on Sho | | [...] | | +-------+ +-------+---+---+ | Given | 09/24/19 | [...] | | | | | 1849, Until Tu09/24/17 at 1430, | | | | | [...] 18 8:59 | | | | | dose, 11/05/17 at 1945 | | PM PDT [...] | | | 2100, Until 09/16/17 at 2059 | | | | | [...] | | | 2100, Until Sat09/18/17 at 2058 | | | | | [...] | | 2100, Until Sho 09/19/17 at 2059 | | | | | [...] | | | 2100, Until 09/23/17 at 2059 | | | | | [...] | mL/hr | | | 2100, Starting Sho 09/26/17 at | | PM PDT | | [...] | | | | | 2100, Starting 09/27/17 at | | AM PDT | | | | | 2100, Until 09/28/17 at 9 | | | | | [...] | | | | | 2100, Until Sat09/29/17 at 2058 | | | | | [...] | | | | | 2100, Until 09/30/17 at 2058 | | | | [...] | | | | | 2100, Starting Sat10/01/17 at | | AM PDT | | | | | 2100, Until Sat10/02/17 at 2059 | | | | | [...] | | | 2100, Until 10/26/17 at 9 | | | | | [...] | | | 2100, Until 10/27/17 at 2059 | | | | | [...] | | | tube, ONCE, 1 dose, [facility] 09/04/17 at | | PM PDT | | | | | 1815 | | | | | | + +-------+ +--------+---+---+ +---+---+ | | | +---+---+ + +-------+ +--------+---+---+ | potassium chloride (KLOR-CON) | Given | 10/11/19 | 40 mEq | | | | packet 40 mEq 40 mEq, feeding | | 18 4:35 | | | | | tube, ONCE, 1 dose, [facility] 10/10/17 | | AM PDT | [...] | | | tube, ONCE, 1 dose, [facility] 10/11/17 | | AM PDT | | | | | at 0245 | | | | | | + +-------+ +--------+---+---+ +---+---+ | | | +---+---+ + +-------+ +--------+---+---+ | potassium chloride (KLOR-CON) | Given | 10/14/19 | 40 mEq | | | | packet 40 mEq 40 mEq, feeding | | 18 1:18 | | | | | tube, ONCE, 1 dose, [place] 10/13/17 | | PM PDT | | | | | at 1315 | | | | | | + +-------+ +--------+---+---+ +---+---+ | | | +---+---+ + +-------+ +--------+---+---+ | potassium chloride (KLOR-CON) | Given | 10/19/19 | 40 mEq | | | | packet 40 mEq 40 mEq, feeding | | 18 4:24 | | | | | tube, ONCE, 1 dose, [facility] 10/18/17 | | PM PDT | | [...] 1 dose, 09/01/17 at 0915 | | AM PDT | | | | + +---------+ +--------+---+---+ +---+---+ | | | +---+---+ + +---------+ +--------+---+---+ | potassium chloride IV (central | New Bag | 09/04/19 | 40 mEq | | | | line) 40 mEq 40 mEq, | | 18 10:06 | | | | | intravenous, ONCE, 1 dose, Leann | | AM PDT | | | [...] IV 15 mmol | New Bag | 10/26/19 | 15 mmol | | | | 15 mmol, intravenous, ONCE, | | 18 4:04 | | | | | dose, 10/25/17 at 1530 | | PM PDT [...] | | | | | | dose, Jared 10/21/17 at 1015 | | | | [...] dose on Sho 10/10/17 at | | AM PDT | [...] | | | | | modification) on 09/23/17 at | | | | | | [...] mg, feeding tube, EVERY | | 18 1:22 | | | [...] | | | | | modification) on Sat11/28/17 at | | | | | | [...] | | | | | NEEDED, Starting [facility] 11/28/17 at | | AM PDT [...] | | | | modification) on Sho 11/21/17 at | | | | | | [...] 4:31 | | | | | dose, [facility] 10/10/17 at 0415 | | AM [...] (VANCOCIN) IV 1,000 | New Bag | 10/13/19 | 1,000 mg | | | | [...] AM PDT | | | | | 5/11/18 at 0200, Last dose | | | [...] | | | | | 1 dose, [facility] 10/10/17 at 1400 | | PM [...]
--- OUTSIDE RECORDS SUMMARY | ~2020-02-06 | XMS | Encounter Summary ---
Demographics + + + | Address | [address] | | | [place] [address] | + + + | Home Phone [...] + | Author | [facility] [employer] [facility] | + + + | Organization | [facility] [employer] [facility] | + + + | Address | Unknown | + + + | Phone | Unavailable | + + + Support + + +---------+ + | Name | Relationship | Address | Phone | + + +---------+ + | Kaylie Baig | ECON | Unknown | | + + +---------+ + Care Team Providers + +------+ + | Care Culinary Assistant Name | Role | Phone | [...] | | | | | [facility], [address] [place] [address] | | | | | | [place], [place] | | | | | | [address] | | | | | | [phone] | | | +--------+ + + + [...]
--- OUTSIDE RECORDS SUMMARY | ~2020-02-06 | XMS | Encounter Summary ---
Demographics + + + | Address | [address] | | | [place] [address] | + + + | Home Phone [...] + + | Author | [facility] | + + + | Organization | [facility] [employer] [facility] | + + [...] Providers + +------+ + | Care Clinical Pharmacy Technician Name | Role | Phone | [...] Chambers | | | | | [facility] | [address], | | | | | Hospital Admitting | [place] [address] | | | | | Desk Located on the | [phone] | | | | | 9th floor | | | | | | [place], [place] | Joslyn Boss, | | | | | [address] | [address] | | | | | | [address] | | | | | | [place], [place] | | | | | | [address] | | | | | | [phone] | | | | | | | [...] + + + | Periph | 08/31/17; [facility]; Right; | 08/31/17 0000 by | 09/05/178 by | | ansley | Hand; 18 g; 09/05/17; 1717; Per | Guera Gresham RN | Barbie Yu RN | | IV | protocol | | | +--------+ + + + | Periph | 08/31/17; [facility] hospital; Right; | 08/31/17 0000 [...] - 09/02/2017 3:20 PM PDTRus scotty Maverick [id number] Allergies not on file No past surgical [...] be different from the original. [place] Maverick [id number] Allergies not on file NPO:NPO Status: since [...] File No results found for: RATE, ATRIALRATE, TX, QRS, QT, QTC, PAXIS, RAXIS, TAXIS, EKGDX [...]
--- OUTSIDE RECORDS SUMMARY | ~2020-02-06 | XMS | Encounter Summary ---
Demographics + + + | Address | [address] | | | [place] [address] | + + + | Home Phone [...] Author | [facility] [email or web address] [facility] | + + + | Organization | [facility] [employer] [facility] | [...] Team Providers + +------+ + | Care Floriculture Professor Name | Role | Phone | [...] | 2018 | Pass | Services at [facility] | | | | | | [address] | | | | | | [place] | | | | | | [facility], [address] [place] [address] | | | | | | [place], [place] | | | | | | [address] | | | | | | [phone] | | | +--------+ + + + [...]
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
--- OUTSIDE RECORDS SUMMARY | ~2020-02-06 | XMS | Clinical Summary ---
Demographics + + + | Address | [address] | | | [place] [address] | + + + | Home Phone | | + + + | Preferred Language | Unknown | + + + | Marital Status | Single | + + + | Druze Affiliation | Unknown | + + + [...] Team Providers + +------+ + | Care Home Appliance Washing Machine Mechanic Name | Role | Phone | + +------+ + | [facility] | PCP | | + +------+ [...] +---------+--------+ | MEDICAID [facility] | MEDICA | [id number] | | [phone] | | Medica | [...] Person | Self | [birth year] | [address] | | | al/Tuan | | 1961 | [phone] | [place] [address] | | | taras | | | 1 (Home) | | + +--------+ +--------+ + + Advance Directives + + + + + | Type | Date Recorded | Patient | Explanation | | | | Call Circuit Worker | | + + + + + | Power of | | | | | Manager Of Internal | | | | + + + [...]
--- OUTSIDE RECORDS SUMMARY | ~2020-02-06 | XMS | Encounter Summary ---
Demographics + + + | Address | [address] | | | [place] [address] | + + + | Home Phone [...] Author | [facility] [employer] [facility] | + + + | Organization | [facility] [employer] [facility] | + + + | Address | Unknown | + + + | Phone | Unavailable | + + + Support + + +---------+ + | Name | Relationship | Address | Phone | + + +---------+ + | Kaylie Baig | ECON | Unknown | | + + +---------+ + Care Team Providers + +------+ + | Care Television Journalist Name | Role | Phone | + [...] | | | | | | Rd [facility] | | | | | | Hospital Admitting | | | | | | Desk Located on the | | | | | | 9th floor | | | | | | [place], [place] | | | | | | [address] | | | +--------+ + + + [...]
--- OUTSIDE RECORDS SUMMARY | ~2020-02-06 | XMS | Encounter Summary ---
Demographics + + + | Address | [address] | | | [place] [address] | + + + | Home Phone [...] + | Author | [facility] | + + + | Organization | [facility] [employer] [facility] [...] Providers + +------+ + | Care Carton Gluing Machine Operator Name | Role | Phone [...] | | | | | | Rd [facility] | | | | | | Hospital Admitting | | | | | | Desk Located on the | | | | | | 9th floor | | | | | | [place], [place] | | | | | | [address] | | | +--------+ + + + [...]
== END 2020-02-06 13:09 | disposition home or self-care (01) ==
LOC: ED 10:57
DX: F10.129 Alcohol abuse with intoxication, unspecified (principal); Y90.7 Blood alcohol level of 200-239 mg/100 ml; I63.9 Cerebral infarction, unspecified; R53.1 Weakness; F17.200 Nicotine dependence, unspecified, uncomplicated; Z79.899 Other long term (current) drug therapy
CPT/HCPCS: 70450; 80053; 85025; 96360; 99285-25; G0480; J7030

== ENCOUNTER 2020-02-28 11:02 | Observation (INO) | payer OTHER ==
[~2020-02-28] VITALS: Ht 170.2 cm; Wt 64.2 kg
[2020-02-28] MEDS ORDERED: LEVETIRACETAM500 MG PO (11:46)
--- NOTE | 2020-02-28 17:45 | NUR ---
PATIENT ARRIVE TO THE CCU ROOM 128. TRANSFERED PATIENT TO BED WITH RN ASSIST. PATIENT TOLERATED WELL. THIS RN IN THE ROOM TO ADMIT PATIENT.
--- NOTE | 2020-02-28 18:56 | NUR ---
PATIENT ADMITTED TO ROOM 128. PATIENT ALERT TO NAME AND PLACE. PATIENT IS DROWSY, BUT WAKES TO VOICE. PATIENT FALLS BACK TO SLEEP QUICKLY. WHEN PATIENT IS AWAKE PATIENT ASKS FOR SOMETHING TO DRINK. PER MD EMANUEL COMPLETE A BEDSIDE SWALLOW AND IF HE PASSES STAFF CAN ADVANCE PATIENT TO A CLEAR LIQUID DIET FOR THE NIGHT. WARM BLANKET PROVIDED TO PATIENT. WILL ALLOW PATIENT TO REST AT THIS TIME. VITALS STABLE. PATIENT ASSESSMENT COMEPLTED. PATIENT IS VERY COOPERATIVE AT THIS TIME AND SAYS PLEASE AND THANK YOU. PATIENT RESTING ON HIS SIDE AT THIS TIME. WILL CONTINUE TO CLOSELY MONITOR.
--- NOTE | 2020-02-28 19:49 | EKG ---
[facility] [address] [place] [address] Signed Normal sinus rhythm RSR' or QR pattern in V1 suggests right ventricular conduction delay Nonspecific ST abnormality Prolonged QT Abnormal ECG When compared with ECG of 22-AUG-2019 08:16, ST more elevated in Anterior leads Confirmed by DESHAWN EMANUEL MD ([id number]) on 02/28/2020 7:49:26 PM Electronically Signed By: DESHAWN EMANUEL MD 02/28/20 1949 PATIENT NAME: ARTEMIO GREEN Electrocardiogram DATE OF : 64 PHYSICIAN: DESHAWN EMANUEL MD REPORT #: [id number] REPORT IS CONFIDENTIAL AND NOT TO BE RELEASED WITHOUT AUTHORIZATION
--- NOTE | 2020-02-28 20:19 | NUR ---
PT AWAKENS EASILY BUT IS DROWSY. IS ORIENTED TO SELF, DID NOT KNOW HE WAS IN THE HOSPITAL OR TIME OR DATE. ANSWERS APPROPRIATELY OTHERWISE. STATES IS HOMELESS. ASKING FOR SPRITE. BEDSIDE SWALLOW EVALUATION DONE. PT ABLE TO TAKE CLEAR LIQUIDS WITHOUT PROBLEM. DRANK MOST OF SODA, NO NAUSEA. PT DOES STATE THAT HE HAS GONE THROUGH ALCOHOL WITHDRAWL BEFORE, UNABLE TO ELABORATE. GIVEN SCHEDULED VALIUM FOR WITHDRAWL PREVENTION.
--- NOTE | 2020-02-28 20:25 | NUR ---
L HAND NOTED TO BE MILDLY SWOLEN, NO C/O PAIN.
--- NOTE | 2020-02-28 22:18 | NUR ---
WILL AWAKEN FOR SHORT PERIODS. NO CHANGES.
--- NOTE | 2020-02-29 00:10 | NUR ---
NO CHANGE.REPORT GIVEN TO CHRIS CHAVEZ.
--- NOTE | 2020-02-29 00:30 | NUR ---
REPORT RECEIVED FROM EILEEN CHAVEZ. PT RESTING IN BED WITH EYES CLOSED, RESP EVEN AND UNLABORED, RR 12, TEMP 99.6 HARRIS TEMP PROBE AND HR 80'S.
--- NOTE | 2020-02-29 02:20 | NUR ---
DR EMANUEL IN UNIT, UPDATED ON CURRENT STATUS OF PT, NO ORDERS AT THIS TIME.
--- NOTE | 2020-02-29 03:00 | NUR ---
PT REMAINS SLEEPING, LOW BP'S NOTED, WILL HOLD SCHEDULED VALIUM FOR NOW.
--- NOTE | 2020-02-29 05:44 | NUR ---
LAB IN TO DRAW, PT REMAINS SLEEPING THROUGHOUT PROCEDURE.
--- NOTE | 2020-02-29 07:45 | NUR ---
REPORT RECEIVED FROM NIGHTSHIFT RN, CARE OF PT. RESUMED, WILL CONTINUE PLAN OF CARE.
--- NOTE | 2020-02-29 08:16 | NUR ---
DR. EMANUEL IN TO SEE PT, ASSESS, AND UPDATE ON PLAN OF CARE. VERBAL ORDERS GIVEN TO HOLD VALIUM AND REMOVE HARRIS CATHETER. PT REPORTS NO PAIN WHEN ASKED. PT WENT BACK TO SLEEP AFTERWARDS. WILL CONTINUE PLAN OF CARE. BED IN LOWEST POSITION, CALL LIGHT WITHIN REACH.
--- NOTE | 2020-02-29 09:00 | NUR ---
Spoke with [place]. He states he is homeless. Repeatedly asks for assistance to get to his sister's home in [place]. Sister is Glendy Baig. He is unable to remember her phone number. He admits he drinks every day, does not answer when asked about drug use. He agrees to speak with Peer to Peer support and I alled and spoke with Abram from [facility] Peer [facility] Peer. He will visit him today. Let Greyson know I am working on placement or transportation.
--- NOTE | 2020-02-29 09:22 | NUR ---
MED REC COMPLETE
--- NOTE | 2020-02-29 09:40 | NUR ---
PT LAYING IN BED EATING BREAKFAST. IV MEDICATIONS INFUSING ORDERED. IV DC'D IN L ELBOW/AC. REMOVAL WITHIN NORMAL LIMITS, PT TOLERATED WELL. NEW IV PLACED IN R HAND AND IS CURRENTLY INFUSING MEDICATIONS. PT REPORTS NO PAIN AT THIS TIME AND REPORTS NO FURTHER NEEDS WHEN ASKED. WILL CONTINUE PLAN OF CARE.
--- NOTE | 2020-02-29 10:30 | NUR ---
PT LAYIN IN BED EATING A SNACK. PT IS NOW ALERT AND AWAKE. PT WAS REORIENTED TO THE DATE. PT STATES HE CANT REMEMBER WHAT HAPPENED WHEN ASKED. HARRIS WAS REMOVED. HARRIS WAS INTACT AND PT TOLERATED PROCEDURE WELL. PT HAS NO PAIN AT THIS TIME AND HAS ASKED TO SPEAK TO CASE MANAGEMENT AGAIN. HE STATED HE WANTED HER TO SPEAK TO HER DIRECTLY WHEN ASKED IF I COULD PASS A MESSAGE FOR HIM. PT IV MEDICATIONS COMPLETE, PT NOW ON CONTINUOUS IV FLUIDS. WILL CONTINUE PLAN OF CARE.
--- NOTE | 2020-02-29 11:22 | NUR ---
ASSISTED PT TO USE THE URINAL AND GET TO THE COMMODE. CLEANED PT UP. CHANGED BED LINEN. EMPTIED GARBAGES. NO OTHER NEEDS AT THIS TIME.
--- NOTE | 2020-02-29 12:13 | NUR ---
PT SLEEPING IN BED. PT WAS WOKEN FOR PO MEDICATION. PT STATES THAT HE CURRENTLY HAS NO PAIN AND ASIDE FROM ORDERING LUNCH HE HAS NO FURTHER NEEDS. IV FLUID RATE DECREASED TO 75ML/HR ORDERED. BED IN LOWEST POSITION, CALL LIGHT WITHIN REACH BY PT. WILL CONTINUE PLAN OF CARE.
--- NOTE | 2020-02-29 12:45 | NUR ---
Spoke with Rn, Peer to Peer saw Anuj and are working on Detox placement.
--- NOTE | 2020-02-29 13:35 | NUR ---
Changed pt. gown.
--- NOTE | 2020-02-29 14:22 | NUR ---
PT RECEIVED A PHONE CALL FROM . PT WAS LAYING IN BED SLEEPING AT THE TIME. PT GOT UP TO SIDE OF BED AND STOOD IN ORDER TO USE URINAL. PT HAD NO DIFFICULTY STANDING UP OR GETTING BACK INTO BED. PT'S STATED THAT SHE WOULD COME VISIT HIM TODAY. PT CURRENTLY LAYING IN BED, IVF INFUSING ORDERED. PT REPORTS NO FURTHER NEEDS WHEN ASKED, WILL CONTINUE PLAN OF CARE.
--- NOTE | 2020-02-29 14:38 | NUR ---
PT STATED HE WAS HAVING NECK PAIN 09/05. PT STATED IT WAS CHRONIC IN NATURE WHEN ASKED. PRN TYLENOL GIVEN. PT REPORTS NO FURTHER NEEDS AT THIS TIME, IV FLUIDS INFUSING ORDERED. BED IN LOWEST POSITION, CALL LIGHT WITHIN REACH, WILL CONTINUE PLAN OF CARE.
--- NOTE | 2020-02-29 15:10 | NUR ---
Spoke with RN, she received call from Abram. He is attempting placement to detox but not sure this will happen. Updated I spoke with Pat Kahn from Pt. Services. She authed payment for a bus ticket to [place] for tomorrow if pt would like to go and cannot get into detox. Bus leaves [place] at 1255.
--- NOTE | 2020-02-29 15:28 | NUR ---
PT LAYING IN BED HAVING A SNACK AND WATCHING TV. PT REPORTS NO PAIN AT THIS TIME. IV FLUIDS INFUSING ORDERED. NO FURTHER NEEDS REPORTED AT THIS TIME. WILL CONTINUE PLAN OF CARE.
--- NOTE | 2020-02-29 16:08 | NUR ---
RESPONDED TO PT CALL LIGHT. PT NEEDED TO VOID. PT WAS ABLE TO STAND AT BEDSIDE AND USE URINAL. PT WAS THEN ABLE TO GET BACK INTO BED AND REPOSITION. PT NOW LAYING IN BED EATING A SNACK. PT REPORTS THAT HE STILL HAS NECK PAIN BUT THAT ITS NOW TOLERABLE AFTER PRN PAIN MEDICATION. PT BED IN LOWEST POSITION, CALL LIGHT WITHIN REACH. PT REPORTS NO FURTHER NEEDS AT THIS TIME, WILL CONTINUE PLAN OF CARE.
--- NOTE | 2020-02-29 17:14 | NUR ---
PT SLEEPING IN BED. ORDERED PO MEDICATIONS GIVEN AFTER WAKING PT. PT REPORTS ONLY MINOR PAIN IN WHERE HE HAS HIS IV. IV WAS ASSESSED AND IS WNL AND FLUSHES WELL. NO PAIN WHEN FLUSHING IV. PT REPORTS NO FURTHER NEEDS AT THIS TIME AND SAYS HES WAITING FOR HIS DINNER. BED IN LOWEST POSITION, CALL LIGHT WITHIN REACH, WILL CONTINUE PLAN OF CARE.
--- NOTE | 2020-02-29 17:50 | NUR ---
PT WAS TAKEN TO BATHROOM TO VOID BY RN CHAVA, PT WAS ASSISTED BACK TO BEDSIDE CHAIR TO EAT DINNER BY THIS RN. PT WAS ABLE TO WALK TO CHAIR AND SIT DOWN UNASSISTED. PT STATES HE STILL FEELS A BIT UNSTEADY WALKING. PT STATES THIS UNSTEADINESS IS NOT HIS BASELINE. PT NOW AT BEDSIDE CHAIR EATING DINNER. PT REPORTS NO FURTHER NEEDS AT THIS TIME, IVF RESTARTED. WILL CONTINUE PLAN OF CARE.
--- NOTE | 2020-02-29 18:03 | NUR ---
RESPONDED TO PT CALL LIGHT. PT FINISHED EATING DINNER AND WANTED TO GET BACK INTO BED. PT WAS ABLE TO GET UP, WALK OVER TO BED AND REPOSITION HIMSELF ON IT WITHOUT ASSISTANCE. PT NOW LAYING IN BED WATCHING TV, PT REPORTS NO FURTHER NEEDS AT THIS TIME, WILL CONTINUE PLAN OF CARE.
--- NOTE | 2020-02-29 19:30 | NUR ---
REPORT RECEIVED FROM ALANA CHAVEZ. PT RESTING IN BED, EYES CLOSED, RESP EVEN AND UNLABORED.
--- NOTE | 2020-02-29 19:45 | NUR ---
SIGNIFICANT OTHER BARBER IN TO SEE PT. PT REMAINED ASLEEP DURING THIS TIME. DISCUSSION WITH BARBER ABOUT PTS CURRENT LIVING SITUATION AND PREVIOUS ATTEMPTS AT DETOX.
--- NOTE | 2020-02-29 20:34 | NUR ---
PT REMAINS RESTING WITH EYES CLOSED, RESP EVEN UNLABORED, HR 68.
--- NOTE | 2020-02-29 22:30 | NUR ---
PT CONTINUES TO SLEEP, RESP EVEN AND UNLABORED, VSS.
--- NOTE | 2020-03-01 00:45 | NUR ---
PT GETTING SELF UP OUT OF BED TO VOID, ASSISTED WITH USING URINAL AT BEDSIDE THEN HELPED BACK TO BED. HE REQUESTS A SNACK, CHIPS GIVEN. BED ALARM ON.
--- NOTE | 2020-03-01 03:30 | NUR ---
PT UP TO VOID, BACK TO BED WITH BED ALARM ON.
--- NOTE | 2020-03-01 05:13 | NUR ---
UP TO VOID IN BATHROOM, STANDBY ASSIST, STEADY ON FEET. VOIDED 600ML LIGHT URINE THEN BACK TO BED WITH BED ALARM ON.
--- NOTE | 2020-03-01 07:39 | NUR ---
pt. got up to use the urinal. fresh water given. room picked up vitals taken. no other needs at this time.
--- NOTE | 2020-03-01 07:40 | NUR ---
REPORT RECEIVED FROM NIGHTSHIFT RN, WILL CONTINUE PLAN OF CARE.
--- NOTE | 2020-03-01 08:20 | NUR ---
PT LAYIN IN BED WATCHING TV. PT WAS ABLE TO GET UP AND WALK TO BATHROOM TO VOID AND WALK BACK TO BED. PT STATES HE HAD NO DIFFICULTY THROUGH THE PROCESS. PT NOW LAYING BACK IN BED. PT STATED HE WANTED TO LEAVE HE DOES NOT THINK HE WILL BE ACCEPTED INTO THE DETOXIFICATION FACILITY. PT WAS AGREEABLE WHEN ASKED IF HE WANTED TO STAY LONGER. PT NOW LAYING IN BED WATCHING TV AND WAITING FOR BREAKFAST. WILL CONTINUE PLAN OF CARE. CALL LIGHT WITHIN REACH, BED IN LOWEST POSITION. PT REPORTS NO FURTHER NEEDS OR PAIN AT THIS TIME.
--- NOTE | 2020-03-01 08:23 | NUR ---
CALLED AND SPOKE WITH TONYA FROM [facility]. TONYA WORKING ON CONTACTING DETOX CENTER TO SEE IF PATIENT WILL BE ACCEPTED INTO THIS FACILITY OR NOT.
--- NOTE | 2020-03-01 08:30 | NUR ---
PT STILL WANTS TO LEAVE AND WAS GETTING OUT OF BED. PT INFORMED THAT WE ARE STILL TALKING TO THE DETOXIFICATION CENTER, THAT HE SHOULD EAT SOME BREAKFAST, AND THAT HE SHOULD WAIT UNTIL WE HEAR BACK FROM CASE MANAGMENT ABOUT PANTS HE HAD STATED HE NEEDED SOME. PT AGREED AND LAYED BACK DOWN IN BED. PT WAS PROVIDED SNACKS AND IS NOW EATING THEM AND WATCHING TV.
--- NOTE | 2020-03-01 09:00 | NUR ---
Notified by Rn pt is wanting to leave. She has discussed detox and Abram from Peer to Peer support is attempting to place him in detox. He is not having luck for surrounding area. Updated I have auth from Pat Kahn for a bus ticket to [place] to his friend Foreign's house if needed. She will let me know if he chooses to not go to Detox.
--- NOTE | 2020-03-01 09:50 | NUR ---
PT UPDATED ON PLAN OF CARE HE STATED HE WANTED TO LEAVE AGAIN SINCE IT WAS TAKING TOO LONG. PT AGAIN WILLING TO WAIT LONGER AFTER EXPLAINING THAT THE PROCESS CAN TAKE TIME.PT NOW IN BATHROOM SHAVING HIS FACIAL HAIR. BED BATH DONE WITH WIPES, LINENS CHANGED. PT REPORTS NO NEEDS AT THIS TIME. 1X DOSE OF MEDICATION GIVEN FOR PT HE STATED HE WAS A BIT ANXIOUS PER DR. EMANUEL ORDERS. WILL CONTINUE PLAN OF CARE.
--- NOTE | 2020-03-01 10:41 | NUR ---
PATIENT WORKED WITH PHYS THERAPY AND AMBULATED IN THE HALLWAY WITHOUT DIFFICULTY. [facility] CALLED BACK AND GIVEN AN UPDATE ON PT'S WILLINGNESS TO TRAVEL TO DETOX CENTER EVEN OUT OF THIS COMMUNITY. WILL WAIT FOR ANOTHER CALL BACK FROM [facility]
--- NOTE | 2020-03-01 10:42 | NUR ---
PT WAS SEEN BY PHYSICAL THERAPY. PT WENT BACK TO BATHROOM AFTER SESSION AND IS NOW FINISHING SHAVING AND BRUSHING HIS TEETH. PT REPORTS NO NEEDS AT THIS TIME. WILL CONTINUE PLAN OF CARE.
--- NOTE | 2020-03-01 11:00 | NUR ---
Spoke with Jennifer, Abram called her and he is attempting to get pt into a detox in [place]. Pt is still wanting to go to [place]. Attempted to call Abram and he is in a conference with a pt. Chepe Rodriguez is in my office. 11:30 sent a text to Abram and let him know pt wants to go to [place] and I am going to purchase a Ticket. Called Dr. Reyes and updated. She states she will write orders for dc as pt is ready for dc and has no needs to remain in the hospital. Spoke with pharmacy and asked if they can stat fill jono meds for pt so he can make the bus to [place] which leaves at 12:45. They agree.
[2020-03-01] MEDS ORDERED: CHLORDIAZEPOXID25 MG PO (11:27)
[2020-03-01] MEDS ORDERED: LEVETIRACETAM500 MG PO (11:27)
[2020-03-01] MEDS ORDERED: VITAMIN B-1100 MG PO (11:28)
--- NOTE | 2020-03-01 11:30 | NUR ---
Orders completed by Dr. Reyes. Rx walked to pharmacy to complete. Called and scheduled a care ride to the bus station for [place]. CCU staff are getting him clothing and a box lunch for the trip.
--- NOTE | 2020-03-01 12:05 | NUR ---
Foreign from pharm completed med fill and to CCU to give pt instructions. Ticket for bus bought and delivered to Anuj. He denies any other needs. Updated the taxi will be her in 10 minutes. Pt is ready for discharge to his friend and sisters home in [place]. He will not give me phone number to all for pickup at the bus station. He states his friend lives near the station and he will walk. Pt to front of hospital with Rn's to meet taxi.
--- NOTE | 2020-03-01 12:25 | NUR ---
PT EDUCATED ON MEDICATIONS BY PHARMACIST. BELONGINGS AND MEDICATIONS TAKEN WITH HIM IN A PERSONAL BELONGINGS BAG. PT WAS GIVEN DISCHARGE INSTRUCTIONS AND TRANSPORTED VIA WHEELCHAIR TO A TAXI PARKED IN THE HOSPITAL ENTRANCE.
== END 2020-03-01 12:15 | disposition home or self-care (01) ==
LOC: ED 11:02 → CCU 16:26
PROVIDERS: ADMIT Internal Medicine; ATTEND Internal Medicine
DX: T68.XXXA Hypothermia, initial encounter (principal); G40.909 Epilepsy, unspecified, not intractable, without status epilepticus; G93.41 Metabolic encephalopathy; F10.20 Alcohol dependence, uncomplicated; I69.354 Hemiplegia and hemiparesis following cerebral infarction affecting left non-dominant side; F17.200 Nicotine dependence, unspecified, uncomplicated; Z86.19 Personal history of other infectious and parasitic diseases; Z79.899 Other long term (current) drug therapy; Z91.14 Patient's other noncompliance with medication regimen
CPT/HCPCS: 36415; 51702; 70450; 71045; 72125; 80048; 80053; 81001; 83690; 83735; 85025; 85610; 93005; 93010; 96375; 96376; 97162; 99285-25; C9113; G0378; G0480; J1953; J3360; J3411; J3475; J7030; J7121

== ENCOUNTER 2020-12-03 20:08 | Emergency (ER) | payer OTHER ==
[~2020-12-03] VITALS: Ht 170.2 cm; Wt 64.3 kg
[~2020-12-03 20:08] MED LIST changes: +CHLORDIAZEPOXID25 MG PO; +VITAMIN B-1100 MG PO
== END 2020-12-04 09:18 | disposition home or self-care (01) ==
LOC: ED 20:08
DX: F10.129 Alcohol abuse with intoxication, unspecified (principal); Y90.8 Blood alcohol level of 240 mg/100 ml or more; F17.200 Nicotine dependence, unspecified, uncomplicated; Z79.899 Other long term (current) drug therapy
CPT/HCPCS: 80053; 81001; 84443; 85025; 96372; 99285; G0480; J3486

== ENCOUNTER → 2021-04-09 | Emergency (ER) | payer OTHER ==
[~2021-04-09] VITALS: Ht 170.2 cm; Wt 64.3 kg
== END ==
LOC: ED 17:58
DX: S06.6X9A Traumatic subarachnoid hemorrhage with loss of consciousness of unspecified duration, initial encounter (principal); F10.129 Alcohol abuse with intoxication, unspecified; W18.30XA Fall on same level, unspecified, initial encounter; F17.200 Nicotine dependence, unspecified, uncomplicated; Z79.899 Other long term (current) drug therapy; Y90.8 Blood alcohol level of 240 mg/100 ml or more; Z20.822 Contact with and (suspected) exposure to COVID-19
CPT/HCPCS: 70450; 73110; 80053; 85025; 96374; 99285-25; C9803; G0480; J1953; U0003